=== PATIENT | male | born 1945 | race Caucasian/White ===

== ENCOUNTER 2018-05-06 07:30 | Outpatient (REF) | payer MEDICARE, OTHER, SELFPAY ==
[2018-05-06 13:03] LABS: ALT 20 U/L (12-78); AST 14 U/L (15-37); Albumin 3.9 g/dL (3.4-5.0); Alkaline Phosphatase 93 U/L (46-116); Anion Gap 7.8 mmol/L (3-11); BUN 16 mg/dL (7-18); Bilirubin, Total 0.4 mg/dL (0.2-1.0); CO2 27.2 mmol/L (21.0-32.0); CREATININE 1.02 mg/dL (0.70-1.30); Calcium 9.1 mg/dL (8.5-10.1); Chloride 103 mmol/L (98-107); Cholesterol 334 mg/dL (50-200); Glucose 96 mg/dL (70-100); HDL Cholesterol 52 mg/dL (40-60); LDL CHOLESTEROL 256 mg/dL (<100); Potassium 4.7 mmol/L (3.5-5.1); Sodium 138 mmol/L (136-145); Total Protein 7.5 g/dL (6.4-8.2); Triglyceride 116 mg/dL (30-150)
== END 2018-05-06 07:50 ==
LOC: NCHCN 07:30
PROVIDERS: PCP Family Medicine; Visit Provider Family Medicine
DX: E78.5 Hyperlipidemia, unspecified (principal)
CPT/HCPCS: 80053; 80061; 83721

== ENCOUNTER 2019-03-19 11:48 | Outpatient (REF) | payer MEDICARE, OTHER, SELFPAY ==
--- NOTE | 2019-03-19 11:30 | SKI_PTH ---
PATIENT: Jovany Hi LOC: [facility] U#:[id number] AGE/SX: 74/M ROOM: RE03/19/[address]: Jovany Lott : 1945 BED: DIS: 03/19/2019 SPEC #: [id number] RECD: 03/20/19 12:28 STATUS: LASHAY RECruzito #: [id number] LAMONT: 03/19/19 11:[address]: Jovany Lott DEPT: Surgical Specimen RECD BY: Marcy Day Tissues: 1 - SKIN BIOPSY(SHAVE/PUNCH) Procedures: SKIN LEVEL 4 SPECIAL STAIN 1 Comments: [id number]
== END 2019-03-19 12:08 ==
LOC: NCHCN 11:48
PROVIDERS: PCP Family Medicine; Visit Provider Family Medicine
DX: L30.8 Other specified dermatitis (principal)
CPT/HCPCS: 88305; 88312

== ENCOUNTER 2019-11-29 06:44 | Emergency (ER) | payer MEDICARE, OTHER, SELFPAY ==
[2019-11-29] VITALS (16 sets, daily range): BP systolic 71–135; BP diastolic 60–97; PULSE 42–108; RESP 12–24; TEMP 36.2; O2SAT 82–99
--- NOTE | 2019-11-29 06:50 | ED.GENADUL_ITS ---
Discharge Plan Disposition Patient Disposition: [facility] Condition: Critical Discharge Details Chief Complaint: Chest Pain Clinical Impression: ST elevation (STEMI) myocardial infarction Primary Care Provider: Jovany Lott ED Provider: Faustino Silverman Home Meds and New Rx's Prescriptions: No Action ferrous sulfate [Iron (ferrous sulfate)] 325 MG tablet 1,000 mg PO EVERY OTHER DAY RF: 0 ibuprofen [Ibuprofen Jr Strength] 100 MG tablet,chewable 200 mg PO Q6H PRN RF: 0 aspirin [Aspirin Low-Strength] 81 MG tablet,chewable 81 mg PO .QOD RF: 0 Medical Decision Making 74 yo male with no significant pmhx, is a chronic smoker, comes in with acute onset chest pain around 4am this morning and has no known cardiac disease. He took 2 full strength aspirin (648mg) and called EMS. EMS noted STEMI in inferior leads gave him fentanyl and brought him here. He was initially with EMS hypote nsive with BP of 90 and improved with small fluid bolus of 500cc and arrives bradycardic in the 40-50's complaining of substernal chest pressure. Denies fevers, dyspnea, cough. No jvd or pitting edema, no tearing back pain. EKG here confirms inferior stemi. Will consult with cardiology [place] [facility] [place] and start heparin. Patient negative on review for contraindications for lytics and after discussion of pros and cons agrees to lytics. spoke with Dr. Real at [facility] [place] cardiology and agrees with stemi and agrees with lytics and would like 300mg clopidogrel given and they accept in transfer, Dr. Garduno is accepting provider. [facility] is unable to fly, will try to arrange ground transport [facility] will take patient down. Patient still having n/v and no resolution of pain or st t wave changes. fentanyl and compazine ordered prior to transport, bp remain stable with HR in the 60's Differential Diagnosis Differential Diagnosis: stemi, acs, ptx Medical Records Medical records reviewed: Yes I reviewed the patient's medical records. Imaging Data Radiologic Study: Attestation: I personally reviewed and interpreted this imaging study as follows: Imaging: X-Ray My impression: no acute findings Lab Data Lab results reviewed: Yes I reviewed the patient's lab results. ECG Data Attestation: I personally reviewed and interpreted this ECG (s) as follows: Prior ECG tracings: not available for review Interpretation: sinus emerson, rate of 45, qtc 426, st elevation in II-III-avf 2nd ekg inus rhythm, rate of 64 pr 00, qtc 460, continued st t wave elevation in II-III-avf HPI General Mode of arrival: EMS . Date/Time Provider Initiated Documentation: 11/29/19 06:59 . Limitations to Documentation: no limitations . Information obtained by: patient . History of Present Illness 74 year old M presents to the emergency department with the chief complaint of chest pain, described as moderate, and it has been constant. No relieving factors improve symptom(s), No exacerbating factors reported . Patient did receive the following treatments prior to arrival, Aspirin Related Data Home Medications Medication Instructions Recorded Confirmed aspirin [Aspirin Low-Strength] 81 mg PO .QOD 06/13/14 11/29/19 ferrous sulfate [Iron] 1,000 mg PO EVERY OTHER DAY 07/09/17 11/29/19 ibuprofen [Ibuprofen Jr Strength] 200 mg PO Q6H PRN tab-cap 07/09/17 11/29/19 Allergies Allergy/AdvReac Type Severity Reaction Status Date / Time Penicillins Allergy Unverified 11/29/19 06:46 Tmnfdwg-Ddu-Hqa Reductase Allergy Unverified 11/29/19 06:46 Inhibitor General Stated Complaint: Chest Pain GRAY: 2 Review of Systems All systems reviewed & are unremarkable except as noted in HPI and below Constitutional Constitutional: Denies chills, Denies fever(s) and Denies weakness Cardiovascular Cardiovascular: Denies dyspnea Respiratory Respiratory: Denies cough and Denies dyspnea Gastrointestinal Gastrointestinal: Denies abdominal pain, Denies nausea and Denies vomiting Musculoskeletal Musculoskeletal: Denies joint swelling Neurologic Neurologic: Denies weakness Psychiatric Psychiatric: Denies depression [facility] Social History Smoking/Tobacco Use Status: Current every day Tobacco Type: cigarettes Alcohol Intake: never Drug use: Never Substance use type: does not use Exam Const General: other (in pain) Orientation: alert HENMT Head: normal to inspection Ears: external ears normal General nose exam: external nose normal Mouth: moist mucous membranes Eyes General: appearance normal, both eyes and all related structures Neck Neck: normal visual inspection Resp Effort & Inspection: normal respiratory effort and able to speak in complete sentences Cardio Rate: bradycardic Skin General skin exam: no rashes or lesions noted Neuro General: patient alert and patient oriented x3 Extrem General: normal to inspection Psych Mental Status: mental status grossly normal Course Vital Signs Vital signs: Vital Signs Temperature 36.2 C L 11/29/19 06:35 Pulse 48 L 11/29/19 06:35 Respiratory Rate 22 11/29/19 06:35 Blood Pressure 71/60 L 11/29/19 06:35 Pulse Oximetry 96 11/29/19 06:35 Temperature 36.2 C L 11/29/19 06:35 Temperature Source Skin 11/29/19 06:35 Pulse 48 L 11/29/19 06:35 Respiratory Rate 22 11/29/19 06:35 Respiratory Effort Non-Labored 11/29/19 06:35 Blood Pressure 71/60 L 11/29/19 06:35 Blood Pressure Position Supine 11/29/19 06:35 Pulse Oximetry 96 11/29/19 06:35 Pain Level 9 11/29/19 06:35 Critical Care Time Critical Care Time Critical Care Time: Yes Total Critical Care Time: 45 (minutes) Attestation: time spent with frequent reassessments, hd monitoring, lab and ekg review and starting heparin and lytics in patient with STEMI and potential to deteriorate at any time
[2019-11-29] MEDS: fentaNYL 100 MCG/2 ML VIAL 50 MCG IVP ×4 (07:00→07:35)
[2019-11-29] MEDS: Normal Saline Flush 10 ML SYR IVP ×2 (07:01→08:03)
[2019-11-29] MEDS: Tenecteplase 50 MG KIT 40 MG IVP (07:04)
[2019-11-29] MEDS: Clopidogrel 300 MG TAB PO (07:04)
[2019-11-29 07:05] LABS: Abs Immature Grans 0.03 k/cumm (0.0-0.09); Absolute Basophil Count 0.06 k/cumm (0.0-0.2); Absolute Eosinophil Count 0.29 k/cumm (0.0-0.7); Absolute Lymphocyte Count 2.53 k/cumm (1.2-3.4); Absolute Monocyte Count 0.79 k/cumm (0.11-0.7); Absolute Neutrophil Count 6.42 k/cumm (1.2-6.7); Basophils % 0.6; Eosinophils % 2.9; HCT 43.1 % (40.0-50.0); HGB 14.6 g/dL (13.5-17.5); Immature Grans % 0.3 %; Mean Corp. HGB Concentration 33.9 g/dL (32.0-36.0); Mean Corpuscular Hemoglobin 29.9 pg (27.0-33.0); Mean Corpuscular Volume 88.3 fL (80-95); Mean Platelet Volume 11.6 fL (8.0-11.0); Monocytes % 7.8; Neutrophils % 63.4; Platelet Count 194 x1000/uL (130-400); RBC 4.88 m/cumm (4.50-6.00); RBC Distribution Width 14.9 % (11.8-14.1); White Blood Cell Count 10.12 k/cumm (4.4-10.8)
--- NOTE | 2019-11-29 07:05 | DI.RAD_ITS ---
EXAM: XR PORTABLE CHEST AP CLINICAL HISTORY: chest pain TECHNIQUE: COMPARISON: CR CHEST 2 VIEWS PA,LAT from 10/12/2014 CR LEFT FOREARM from 01/22/2015 CT CHEST WITH CONTRAST from 10/08/2015 CT CHEST WITH CONTRAST from 10/08/2015 FINDINGS: Portable upright chest at 0700 hours. Cardiac size is within normal limits. Previously described ch anges of COPD fibrosis again noted, most prominent in the right lung base. Little interval change in appearance comparison prior study of 10/12/2014. No pleural effusion seen on this frontal. IMPRESSION: No evidence of acute process.
[2019-11-29] MEDS: Ondansetron 4 MG/2 ML VIAL IVP (07:10)
--- NOTE | 2019-11-29 07:10 | DI.VRAD_ITS ---
PROCEDURE INFORMATION: Exam: XR Chest, 1 View Exam date and time: 11/29/2019 7:00 AM Age: 74 years old Clinical indication: Other: Chest pain TECHNIQUE: Imaging protocol: XR of the chest Views: 1 view. COMPARISON: CR CHEST 2 VIEWS PA,LAT 10/12/2014 11:21 AM FINDINGS: Lungs: There is mild prominence of the interstitial markings at the right lung base, similar to the previous study and consistent with chronic change. There is no alveolar consolidation. Pleural space: Unremarkable. No pleural effusion. No pneumothorax. Heart/Mediastinum: Unremarkable. No cardiomegaly. Bones/joints: Unremarkable. IMPRESSION: Chronic interstitial changes at the right lung base. Dictated and Authenticated by: Brandin Mccollum MD. Ordering:LAVON Harmon MD
[2019-11-29 07:22] LABS: INR 1.1 (0.9-1.1); Prothrombin Time 11.2 sec (9.3-11.0)
[2019-11-29 07:25] LABS: ALT 16 U/L (16-63); AST 12 U/L (15-37); Albumin 3.5 g/dL (3.4-5.0); Alkaline Phosphatase 94 U/L (46-116); Anion Gap 11.8 mmol/L (3-11); BUN 21 mg/dL (7-18); Bilirubin, Total 0.4 mg/dL (0.2-1.0); CO2 22.2 mmol/L (21.0-32.0); CREATININE 1.43 mg/dL (0.70-1.30); Calcium 8.8 mg/dL (8.5-10.1); Chloride 100 mmol/L (98-107); Estimated GFR 48.48 (mL/min/1.73m2); Glucose 190 mg/dL (74-106); Lipase 187 U/L (73-393); Potassium 3.3 mmol/L (3.5-5.1); Sodium 134 mmol/L (136-145); Total Protein 7.6 g/dL (6.4-8.2)
[2019-11-29 07:30] LABS: Troponin I 0.08 ng/mL (<0.06)
[2019-11-29] MEDS: Prochlorperazine 10 MG/2 ML VIAL IVP (07:32)
== END 2019-11-29 07:40 | disposition short-term general hospital (02) ==
PROVIDERS: Emergency Provider Emergency Medicine; PCP Family Medicine
DX: I21.19 ST elevation (STEMI) myocardial infarction involving other coronary artery of inferior wall (principal); R00.1 Bradycardia, unspecified; R11.2 Nausea with vomiting, unspecified; I95.9 Hypotension, unspecified; F17.210 Nicotine dependence, cigarettes, uncomplicated
CPT/HCPCS: 36415; 80053; 83690; 93005; 96365; 96374; 96375; 96376; 99291; 71045; 84484; 85025; 85610; 85730; 93010; J0780; J2405; J3010; J3101

== ENCOUNTER 2019-12-12 12:44 | Outpatient (REF) | payer MEDICARE, OTHER, SELFPAY ==
[2019-12-12 13:31] LABS: Anion Gap 13.5 mmol/L (3-11); BUN 18 mg/dL (7-18); CO2 20.5 mmol/L (21.0-32.0); CREATININE 1.58 mg/dL (0.70-1.30); Calcium 9.2 mg/dL (8.5-10.1); Chloride 98 mmol/L (98-107); Estimated GFR 43.21 (mL/min/1.73m2); Glucose 96 mg/dL (74-106); Potassium 4.5 mmol/L (3.5-5.1); Sodium 132 mmol/L (136-145)
== END 2019-12-12 13:04 ==
LOC: LBN 12:44
PROVIDERS: PCP Family Medicine; Visit Provider Family Medicine
DX: I50.21 Acute systolic (congestive) heart failure (principal); I21.19 ST elevation (STEMI) myocardial infarction involving other coronary artery of inferior wall
CPT/HCPCS: 80048

== ENCOUNTER 2019-12-18 03:30 | Outpatient (CLI) | payer MEDICARE, OTHER, SELFPAY ==
--- NOTE | 2019-12-18 10:01 | DI.CT_ITS ---
EXAM: CT HEAD WO CLINICAL HISTORY: INTERCRANIAL HEMORRHAGE, FOLLOW UP I62.9. TECHNIQUE: Imaging Protocol: Axial computed tomography images with coronal and sagittal reformatted images were created and reviewed COMPARISON: CT CT HEAD WO CONTRAST (GENERIC) from 11/30/2019 MR MRI BRAIN WWO from 12/05/[address] HEAD WO CONTRAST (GENERIC) from 12/06/2019 FINDINGS: Ventricles and Extra axial spaces: Normal in size and morphology for the patient's age. Hemorrhage: Has been some interval decrease in size and attenuation of the previously noted hemorrhag e in the region of the left optic tract compared with previous exams. No significant edema. No new areas of hemorrhage are seen. Cerebral parenchyma: Mild atrophy. Midline shift: None. Brainstem/Cerebellum: Normal. Calvarium: Unremarkable. Visualized Paranasal sinuses/Mastoids: Mucous retention at the inferior right maxillary sinus. There is. Soft Tissues: Unremarkable. IMPRESSION: Decreased conspicuity of the previously noted area of hemorrhage in the region of the proximal left o ptic tract..No new abnormalities. RADIATION DOSE DELIVERED: 699.14mGy.cm Total DLP DATA REPOSITORY: All CT scans at this facility are submitted to the National Radiology Data Registry (NRDR) Dose Index Registry (DIR) with the [employer] (ACR). RADIATION OPTIMIZATION: All CT scans at this facility use at least one of these dose optimization te chniques: automated exposure control; mA and/or kV adjustment per patient size (includes targeted exa ms where dose is matched to clinical indication); or iterative reconstruction.
== END 2019-12-18 03:50 ==
PROVIDERS: PCP Family Medicine; Visit Provider Nurse Practitioner
DX: I62.9 Nontraumatic intracranial hemorrhage, unspecified (principal); G31.89 Other specified degenerative diseases of nervous system
CPT/HCPCS: 70450

== ENCOUNTER 2019-12-22 08:37 | Outpatient (CLI) | payer MEDICARE, OTHER, SELFPAY ==
[2019-12-23 19:48] LABS: COVID-19 RT-PCR UVMMC Result Negative (Negative)
== END 2019-12-22 08:57 ==
PROVIDERS: PCP Family Medicine; Visit Provider Family Medicine
DX: Z03.818 Encounter for observation for suspected exposure to other biological agents ruled out (principal)
CPT/HCPCS: U0003

== ENCOUNTER 2019-12-23 10:54 | Outpatient (RCR) | payer MEDICARE, SELFPAY | END 2019-12-30 23:59 | disposition home or self-care (01) | LOC: CR 10:54 | PROVIDERS: PCP Family Medicine; Visit Provider Family Medicine | DX: I25.2 Old myocardial infarction (principal) ==

== ENCOUNTER 2019-12-29 01:46 | Outpatient (CLI) | payer MEDICARE, OTHER, SELFPAY ==
--- NOTE | 2019-12-29 08:28 | DI.CT_ITS ---
EXAM: CT HEAD WO CLINICAL HISTORY: INTRACRANIAL HEMORRHAGE, I62.9, F/U LT OPTIC TRACT HEMORRHAGE. TECHNIQUE: Imaging Protocol: Axial computed tomography images with coronal and sagittal reformatted images were created and reviewed COMPARISON: CT CT HEAD WO CONTRAST (GENERIC) from 11/30/[address] HEAD WO CONTRAST (GENERIC) from 11/30/[address] HEAD WO CONTRAST (GENERIC) from 11/30/[address] ANGIOGRAM TAKOTNA OF BRAY from 11/30/[address] HEAD WO CONTRAST (GENERIC) from 12/01/2019 MR MRI BRAIN WWO from 12/05/[address] HEAD WO CONTRAST (GENERIC) from 12/06/[address] HEAD WO from 12/18/2019 FINDINGS: Ventricles and Extra axial spaces: Normal in size and morphology for the patient's age. Hemorrhage: The area of hemorrhage in the region of the left optic tract is again noted. It is uncha nged in size compared to 12/18/2019. No new areas of hemorrhage are identified. The areas of decreas ed attenuation in the adjacent soft tissues are unchanged. Cerebral parenchyma: Areas of decreased attenuation are seen in the white matter consistent with smal l vessel ischemic disease. Mild age-appropriate cerebral atrophy is seen. Midline shift: None. Brainstem/Cerebellum: Normal. Calvarium: Normal. Visualized Paranasal sinuses/Mastoids: There is mucosal thickening seen in the right maxillary sinus and a few ethmoid air cells. The mastoid air cells are well pneumatized. Soft Tissues: Unremarkable. IMPRESSION: Stable area of hemorrhage seen in the region of the left optic tract. RADIATION DOSE DELIVERED: Total DLP DATA REPOSITORY: All CT scans at this facility are submitted to the National Radiology Data Registry (NRDR) Dose Index Registry (DIR) with the [employer] (ACR). RADIATION OPTIMIZATION: All CT scans at this facility use at least one of these dose optimization te chniques: automated exposure control; mA and/or kV adjustment per patient size (includes targeted exa ms where dose is matched to clinical indication); or iterative reconstruction.
== END 2019-12-29 02:06 ==
PROVIDERS: PCP Family Medicine; Visit Provider Nurse Practitioner
DX: I62.9 Nontraumatic intracranial hemorrhage, unspecified (principal); I67.82 Cerebral ischemia; J32.0 Chronic maxillary sinusitis
CPT/HCPCS: 70450

== ENCOUNTER 2019-12-30 14:33 | Outpatient (RCR) | payer MEDICARE, SELFPAY | END 2019-12-30 23:59 | disposition home or self-care (01) | LOC: CR 14:33 | PROVIDERS: PCP Family Medicine; Visit Provider Family Medicine | DX: R69 Illness, unspecified (principal) ==

== ENCOUNTER 2020-01-15 16:47 | Outpatient (REF) | payer MEDICARE, SELFPAY ==
[2020-01-15 18:57] LABS: Anion Gap 9.9 mmol/L (3-11); BUN 24 mg/dL (7-18); CO2 26.1 mmol/L (21.0-32.0); CREATININE 1.49 mg/dL (0.70-1.30); Calcium 9.2 mg/dL (8.5-10.1); Chloride 100 mmol/L (98-107); Estimated GFR 46.23 (mL/min/1.73m2); Glucose 98 mg/dL (74-106); Potassium 4.1 mmol/L (3.5-5.1); Sodium 136 mmol/L (136-145)
== END 2020-01-15 17:07 ==
LOC: NCHCN 16:47
PROVIDERS: PCP Family Medicine; Visit Provider Family Medicine
DX: N28.9 Disorder of kidney and ureter, unspecified (principal)
CPT/HCPCS: 80048

== ENCOUNTER 2020-01-30 10:00 | Outpatient (RCR) | payer MEDICARE, OTHER, SELFPAY | END 2020-01-30 23:59 | disposition home or self-care (01) | LOC: CR 10:00 | PROVIDERS: PCP Family Medicine; Visit Provider Family Medicine | DX: I25.2 Old myocardial infarction (principal); Z51.89 Encounter for other specified aftercare | CPT/HCPCS: S9472 ==

== ENCOUNTER → 2020-02-03 11:16 | Outpatient (BNVA) | payer MEDICARE, OTHER, SELFPAY | PROVIDERS: PCP Family Medicine; Referring Provider Family Medicine; Visit Provider Internal Medicine Cardiovascular Disease | DX: I21.3 ST elevation (STEMI) myocardial infarction of unspecified site (principal); E78.5 Hyperlipidemia, unspecified; I25.5 Ischemic cardiomyopathy; I48.0 Paroxysmal atrial fibrillation; Z86.73 Personal history of transient ischemic attack (TIA), and cerebral infarction without residual deficits | CPT/HCPCS: 99204; 99215 ==

== ENCOUNTER 2020-02-07 07:19 | Outpatient (CLI) | payer MEDICARE, OTHER, SELFPAY ==
[2020-02-08 17:55] LABS: COVID-19 RT-PCR Result NEGATIVE (Negative)
== END 2020-02-07 07:39 ==
PROVIDERS: PCP Family Medicine; Visit Provider Family Medicine
DX: Z11.59 Encounter for screening for other viral diseases (principal); Z01.818 Encounter for other preprocedural examination
CPT/HCPCS: U0003

== ENCOUNTER 2020-02-11 04:37 | Outpatient (CLI) | payer MEDICARE, OTHER, SELFPAY ==
[2020-02-11] MEDS: Albuterol HFA 18 GM 200 PUFF INH IH (09:02)
[2020-02-11] MEDS: Inhaler, Assist Device 1 EACH MC (09:02)
--- NOTE | 2020-02-13 13:06 | W.PFT ---
Date of service: 02/11/20 Time of Service: 08:02 Pulmonary Function Test Result Interpretation Spirometry: Shows mild obstructive airways disease with significant bronchodilator response Lung Volumes: No evidence of restriction, there is mild to moderate hyperinflation and air trapping Diffusion Capacity: Very severely reduced even when corrected to alveolar volume Airway Pressure: Normal Impression Mild obstructive airways disease with significant bronchodilator response and mild to moderate hyperinflation and air trapping. This is associated with extremely severe diffusion defect. The diffusion defect is disproportionate to the amount of airway obstruction therefore underlying interstitial lung disease, especially with the patient's history of amiodarone exposure, is recommended. Clinical Correlation therefore is recommended.
== END 2020-02-11 04:57 ==
PROVIDERS: PCP Family Medicine; Visit Provider Family Medicine
DX: J44.9 Chronic obstructive pulmonary disease, unspecified (principal); R06.09 Other forms of dyspnea; Z87.891 Personal history of nicotine dependence; Z79.899 Other long term (current) drug therapy
CPT/HCPCS: 94060; 94726; 94729

== ENCOUNTER 2020-03-01 09:00 | Outpatient (RCR) | payer MEDICARE, OTHER, SELFPAY | END 2020-03-01 23:59 | disposition home or self-care (01) | LOC: CR 09:00 | PROVIDERS: PCP Family Medicine; Visit Provider Family Medicine | DX: I25.2 Old myocardial infarction (principal); Z51.89 Encounter for other specified aftercare | CPT/HCPCS: S9472 ==

== ENCOUNTER 2020-03-10 02:44 | Outpatient (CLI) | payer MEDICARE, OTHER, SELFPAY ==
[2020-03-10 10:18] LABS: Hemoglobin A1C 6.1 % (<5.7)
[2020-03-10 10:57] LABS: ALT 26 U/L (16-63); AST 15 U/L (15-37); Alkaline Phosphatase 95 U/L (46-116); Anion Gap 5.8 mmol/L (3-11); BUN 21 mg/dL (7-18); Bilirubin, Total 0.6 mg/dL (0.2-1.0); CO2 28.2 mmol/L (21.0-32.0); Calcium 9.1 mg/dL (8.5-10.1); Calculated LDL 274 mg/dL (<100); Chloride 99 mmol/L (98-107); Cholesterol 350 mg/dL (<200); Estimated GFR 45.75 (mL/min/1.73m2); Glucose 103 mg/dL (74-106); HDL Cholesterol 49 mg/dL (40-60); Potassium 4.4 mmol/L (3.5-5.1); Sodium 133 mmol/L (136-145); TSH 4.56 uIU/mL (0.36-3.74); Total Protein 7.9 g/dL (6.4-8.2); Triglyceride 135 mg/dL (<150)
[2020-03-11 16:18] LABS: Lipoprotein (a) 24 mg/dL (<=30)
== END 2020-03-10 03:04 ==
PROVIDERS: PCP Family Medicine; Visit Provider Internal Medicine
DX: E78.00 Pure hypercholesterolemia, unspecified (principal); R73.9 Hyperglycemia, unspecified
CPT/HCPCS: 36415; 80053; 80061; 83695; 83036; 84443

== ENCOUNTER 2020-03-26 13:51 | Outpatient (RCR) | payer MEDICARE, OTHER, SELFPAY | END 2020-03-31 23:59 | disposition home or self-care (01) | LOC: CR 13:51 | PROVIDERS: PCP Family Medicine; Visit Provider Family Medicine | DX: I25.2 Old myocardial infarction (principal); Z51.89 Encounter for other specified aftercare | CPT/HCPCS: S9472 ==

== ENCOUNTER 2020-04-06 00:31 | Outpatient (CLI) | payer MEDICARE, OTHER, SELFPAY ==
--- NOTE | 2020-04-06 07:30 | DI.US_ITS ---
APPROVED REPORT EXAM: Comprehensive 2D, Doppler, and color-flow Echocardiogram Patient Location: Out-Patient Blue Line Hanger: Shanita Gamez RDCS (AE) Indications: CAD, STEMI Other Information Study Quality: Adequate Conclusion Normal left ventricular wall thickness and chamber size. Estimated ejection fraction is 45 to 50%. Inferior posterior and anteroapical segments are hypocontractile Normal right ventricular size and systolic function Normal right and left atrial size The aortic valve is trileaflet without regurgitation or stenosis Normal mitral valve, with mild regurgitation Structurally normal tricuspid valve. Trace to mild tricuspid regurgitation. Normal right ventricula r systolic pressure 17 mmHg Structurally normal pulmonic valve, mild pulmonic regurgitation Mildly dilated ascending aorta Wall motion Left Ventricle The left ventricle is normal size. Left ventricular systolic function is mildly decreased. There is n ormal left ventricular wall thickness. Inferior, posterior, anteroapical hypokinesis There is no vent ricular septal defect visualized. LVEF is 45-50%. Right Ventricle The right ventricle is normal size. The right ventricular systolic function is normal. The RVSP is 17 .4mmHg. Atria The left atrium size is normal. The right atrium size is normal. The interatrial septum is intact wit h no evidence for an atrial septal defect. Aortic Valve The aortic valve is normal in structure. Aortic valve is trileaflet. There is no aortic valvular sten osis. No aortic regurgitation is present. Mitral Valve The mitral valve is normal in structure. No evidence of mitral valve stenosis. Mild mitral regurgitat ion. Tricuspid Valve The tricuspid valve is normal in structure. There is no tricuspid valve stenosis. Trace to mild tricu spid regurgitation. Pulmonic Valve The pulmonary valve is normal in structure. There is no pulmonic valvular stenosis. Mild pulmonic reg urgitation. Great Vessels The aortic root is normal in size. The ascending aorta is mildly dilated. Aortic arch is not well vis ualized. IVC is normal in size and collapses >50% with inspiration. Pericardium There is no pericardial effusion. 2D Dimensions IVSD d PLAX 0.81 cm M: 0.6-1.2 LV Vol A2C d MOD 111.1 mL LVPW d PLAX 0.81 cm M: 0.6 - 1.2 LV Vol A4C d MOD 98.8 mL LVID d PLAX 5.45 cm M: 4.2 - 5.8 LA vol/ BSA A2C s A-L 28.0 mL/m2 LVDs 4.55 cm M: 2.5 - 4.0 LA vol/ BSA A4C s A-L 17.5 mL/m2 Ao Root d 3.11 cm M: 3.1 - 3.7 LA Vol/ BSA Biplane s A-L 22.6 mL/m2 RA Area A4C 11.60 cm2 LA Area A4C s MOD 12.84 cm2 RA Vol/ BSA A4C s A-L 16.2 mL/m2 LA Area A2C s MOD 16.58 cm2 Ao Asc Diam d 3.55 cm M: 2.6 - 3.4 LV EF A4C MOD 44.9 % LV EF Teichholz 32.9 % LV EF A2C MOD 40.1 % LVEF (Orourke's) 41.50 % M: 52 - 72 LV EF Biplane MOD 41.5 % LV Volume 86.79 mL M: 62 - 150 SV 45.78 mL LV Volume Index 49.87 mL/m2 M: 34 - 74 SV Index 26.26 mL/m2 LV Vol Biplane MOD 110.3 mL FS 15.75 % LV Diastology MV E' medial 0.052 (>0.07 m/s) E/A Ratio 0.8 LV E/e MED 9.50 (<14) MV E Vmax 0.50 (0.4-1.3 m/s) MV E' lateral 0.077 (>0.1 m/s) MV A Vmax 0.60 (0.4-1.3 m/s) LV E/e LAT 6.45 (<14) MV E/A Ratio 0.76 MV E/E' medial 9.51 MV E/E' lateral 6.47 Aortic Valve LVOT Area 3.56 cm2 AoV Area Vmax 2.37 cm2 LVOT Vmax 0.83 m/s AoV Area/ BSA (Vmax) 1.36 cm2/m2 LVOT Mean Bart. 0.53 m/s KELVIN Mean Bart. 2.41 cm2 LVOT Peak Grad 2.7 mmHg KELVIN Mean Bart. Index 1.38 cm2/m2 LVOT Mean Grad 1.3 mmHg LVOT VTI 0.202 m LVOT Diam s 2.10 cm AoV Vmax 1.25 m/s Velocity Ratio 0.66 AoV Mean Bart. 0.78 m/s AoV Peak Grad 6.2 mmHg LVOT SV 72.09 mL AoV Mean Grad 2.9 mmHg AoV VTI 0.251 m AoV Area VTI 2.87 cm2 AoV Area/ BSA (VTI) 1.65 cm/m2 Mitral Valve MV DT 323 (160-240 msec) MV PHT 94 msec MV Area PHT 2.35 cm2 Pulmonary Valve PV Vmax 1.07 (0.5-1.5 m/s) RVOT Peak Gr. 1.23 mmHg PV Peak Grad 4.6 mmHg RVOT Mean Gr. 0.60 mmHg PV Mean Grad 2.0 mmHg RVOT VTI 0.121 m PV VTI 0.229 m RVOT Vmax 0.56 m/s Tricuspid Valve TR Peak Grad 14.3 mmHg TR Vmax 1.89 m/s RA Pressure 3.00 mmHg RVSP (TR) 17.4 mmHg
== END 2020-04-06 00:51 ==
PROVIDERS: PCP Family Medicine; Visit Provider Internal Medicine Cardiovascular Disease
DX: I21.3 ST elevation (STEMI) myocardial infarction of unspecified site (principal); I08.1 Rheumatic disorders of both mitral and tricuspid valves
CPT/HCPCS: 93306

== ENCOUNTER → 2020-05-06 11:13 | Outpatient (BNVA) | payer MEDICARE, OTHER, SELFPAY | PROVIDERS: PCP Family Medicine; Referring Provider Family Medicine; Visit Provider Internal Medicine Cardiovascular Disease | DX: I25.10 Atherosclerotic heart disease of native coronary artery without angina pectoris (principal); E78.5 Hyperlipidemia, unspecified; I21.3 ST elevation (STEMI) myocardial infarction of unspecified site; Z79.01 Long term (current) use of anticoagulants | CPT/HCPCS: 99214 ==

== ENCOUNTER 2020-09-07 13:15 | Outpatient (CLI) | payer MEDICARE, OTHER, SELFPAY ==
--- NOTE | 2020-09-07 | DI.RAD_ITS ---
EXAM: XR ABD FLAT UPRIGHT PA CHEST CLINICAL HISTORY: SOB, R06.02 TECHNIQUE: 2D digital imaging was performed. COMPARISON: No exams were available for comparison FINDINGS: MEDIASTINUM: Normal. HEART: Normal. PULMONARY VASCULATURE: Normal. LUNGS: Linear atelectasis or scarring in the right lung base. Lungs are hyperinflated with flattened diaphragms consistent with underlying COPD. PLEURAL SPACE: No pleural effusion or pneumothorax. BONE:Within normal limits for the patient's age. OTHER FINDINGS:Normal. IMPRESSION: No acute pulmonary findings. DATA REPOSITORY: RADIATION DOSE DELIVERED:
== END 2020-09-07 13:35 ==
PROVIDERS: PCP Family Medicine; Visit Provider Family Medicine
DX: R06.02 Shortness of breath (principal)
CPT/HCPCS: 71046

== ENCOUNTER 2020-09-07 14:36 | Outpatient (REF) | payer MEDICARE, OTHER, SELFPAY ==
[2020-09-07 15:24] LABS: Abs Immature Grans 0.06 10^3/uL (0.0-0.06); Absolute Basophil Count 0.06 10^3/uL (0.0-0.2); Absolute Eosinophil Count 0.09 10^3/uL (0.0-0.7); Absolute Lymphocyte Count 2.14 10^3/uL (1.2-3.4); Absolute Monocyte Count 1.21 10^3/uL (0.1-0.8); Absolute Neutrophil Count 6.78 10^3/uL (1.2-6.7); Basophils % 0.6; Eosinophils % 0.9; HCT 48.4 % (40.0-50.0); HGB 15.7 g/dL (13.5-17.5); Immature Grans % 0.6; Lymphocytes % 20.7; MCH 29.8 pg (27.0-33.0); MCHC 32.4 % (32.0-36.0); MCV 91.8 fL (80-95); MPV 13.3 fL (8.0-11.0); Monocytes % 11.7; Neutrophils % 65.5; Nucleated RBC 0 %; RBC 5.27 10^6/uL (4.36-5.78); RDW 13.5 % (11.8-14.1); RDW-SD 46.3 fL; WBC 10.34 10^3/uL (4.4-10.8)
[2020-09-07 15:30] LABS: ALT 22 U/L (16-63); AST 16 U/L (15-37); Albumin 4.2 g/dL (3.4-5.0); Alkaline Phosphatase 101 U/L (46-116); Anion Gap 10.7 mmol/L (3-11); BUN 20 mg/dL (7-18); Bilirubin, Total 0.8 mg/dL (0.2-1.0); CO2 24.3 mmol/L (21.0-32.0); CREATININE 1.5 mg/dL (0.70-1.30); Calcium 9.4 mg/dL (8.5-10.1); Chloride 99 mmol/L (98-107); Estimated GFR 45.75 (mL/min/1.73m2); Glucose 124 mg/dL (74-106); NT-proBNP 1055 pg/mL (<300); Sodium 134 mmol/L (136-145); Total Protein 8.8 g/dL (6.4-8.2)
[2020-09-07 16:03] LABS: Diff Comment Diff Reviewed; Platelet Count 169 10^3/uL (130-400); RBC Morphology Normal
[2020-09-08 14:33] LABS: COVID-19 RT-PCR UVMMC Result Negative (Negative)
== END 2020-09-07 14:37 | disposition home or self-care (01) ==
LOC: NCHCN 14:36
PROVIDERS: PCP Family Medicine; Visit Provider Family Medicine
DX: R06.02 Shortness of breath (principal); B34.9 Viral infection, unspecified; Z20.822 Contact with and (suspected) exposure to COVID-19; J06.9 Acute upper respiratory infection, unspecified
CPT/HCPCS: 80053; U0003; 83880; 85025

== ENCOUNTER → 2020-11-08 11:10 | Outpatient (BNVA) | payer MEDICARE, OTHER, SELFPAY | PROVIDERS: PCP Family Medicine; Referring Provider Family Medicine; Visit Provider Internal Medicine Cardiovascular Disease | DX: I25.2 Old myocardial infarction; I25.10 Atherosclerotic heart disease of native coronary artery without angina pectoris; R06.02 Shortness of breath; I25.5 Ischemic cardiomyopathy; I50.21 Acute systolic (congestive) heart failure; I48.91 Unspecified atrial fibrillation | CPT/HCPCS: 99214 ==

== ENCOUNTER 2020-12-13 05:47 | Emergency (ER) | payer MEDICARE, OTHER, SELFPAY ==
[2020-12-13] VITALS (7 sets, daily range): BP systolic 126–151; BP diastolic 69–91; PULSE 57–78; RESP 14–24; TEMP 36.6; O2SAT 92
[2020-12-13 06:13] LABS: Abs Immature Grans 0.02 10^3/uL (0.0-0.06); Absolute Basophil Count 0.09 10^3/uL (0.0-0.2); Absolute Lymphocyte Count 2.24 10^3/uL (1.2-3.4); Absolute Monocyte Count 0.76 10^3/uL (0.1-0.8); Absolute Neutrophil Count 3.37 10^3/uL (1.2-6.7); Basophils % 1.3; Eosinophils % 4.4; HCT 47.3 % (40.0-50.0); HGB 15.1 g/dL (13.5-17.5); Immature Grans % 0.3; MCH 29.4 pg (27.0-33.0); MCHC 31.9 % (32.0-36.0); MCV 92.2 fL (80-95); MPV 12.2 fL (8.0-11.0); Monocytes % 11.2; Neutrophils % 49.8; Nucleated RBC 0 %; Platelet Count 150 10^3/uL (130-400); RBC 5.13 10^6/uL (4.36-5.78); RDW 14.3 % (11.8-14.1); RDW-SD 48.9 fL; WBC 6.78 10^3/uL (4.4-10.8)
--- NOTE | 2020-12-13 06:20 | ED.GENADUL_ITS ---
Discharge Plan Disposition Patient Disposition: HOME Condition: Stable Discharge Details Clinical Impression: Hemorrhage secondary to anti-coagulation Primary Care Provider: Jovany Lott ED Provider: Faustino Silverman Home Meds and New Rx's Prescriptions: Continued furosemide [Lasix] 20 mg tablet 20 mg PO Q OTHER DAY Qty: 90 RF: 6 Eliquis 5 mg tablet 5 mg PO BID Qty: 180 RF: 3 lisinopril 5 mg tablet 5 mg PO DAILY Qty: 90 RF: 3 metoprolol succinate 25 mg tablet extended release 24 hr 25 mg PO DAILY Qty: 90 RF: 3 aspirin 81 mg Tablet 81 mg PO DAILY RF: 0 Spiriva with HandiHaler 18 mcg Capsule, W/Inhalation Device 1 cap INHALATION DAILY RF: 0 cholecalciferol (vitamin D3) [Vitamin D3] 50 mcg (2,000 unit) Tablet 2,000 unit PO DAILY RF: 0 Discharge Instructions Additional Instructions: if you have recurrent bleeding hold pressure by biting down on gauze as we discussed if you are unable to stop the bleeding after 15 minutes of holding pressure return to the emergency department Medical Decision Making 75 yo male on eliquis for paroxysmal afib comes in after he woke with blood in his mouth and denies known trauma. HE states he went to bed feeling well and had no bleeding yesterday and no recent dental procedures. He has not noticed any blood from his nose and when I had him blow his nose and he had no blood from the nose or on the tissue. He has blood on his tongue without lesions. His left upper posterior gum where he has had a tooth extracted dose have oozing of blood from it and seems to be the source of the bleeding. I performed a rectal exam and he had brown guiac negative stool so doubt gi bleed, done with nurse cyber security administrator [place] Marcelino. Will apply txa soaked gauze and reassess. I removed gauze and he no longer has any bleeding, will d/c and educated on how to hold pressure if it bleeds again, return precautions also given Differential Diagnosis Differential Diagnosis: oral lesion, mouth trauma, epistaxis Medical Records Medical records reviewed: Yes I reviewed the patient's medical records. Lab Data Lab results reviewed: Yes I reviewed the patient's lab results. HPI General Mode of arrival: ambulatory . Date/Time Provider Initiated Documentation: 12/13/20 05:48 . Limitations to Documentation: no limitations . Information obtained by: patient . History of Present Illness 75 year old M presents to the emergency department with the chief complaint of mouth bleeding, described as moderate, Patient started experiencing this hour(s) (1) and it has been constant. No relieving factors improve symptom(s), No exacerbating factors reported . Patient notes no other symptoms.. Patient did receive the following treatments prior to arrival, none Related Data Home Medications Medication Instructions Recorded Confirmed lisinopril 5 mg tablet 5 mg PO DAILY #90 tab 05/17/20 12/13/20 metoprolol succinate 25 mg 25 mg PO DAILY #90 tab 05/17/20 12/13/20 tablet,extended release 24 hr apixaban 5 mg tablet 5 mg PO BID #180 tab 11/08/20 12/13/20 furosemide 20 mg tablet 20 mg PO Q OTHER DAY #90 tab 11/08/20 12/13/20 Spiriva with HandiHaler 1 cap INHALATION DAILY 12/06/20 12/13/20 aspirin 81 mg PO DAILY 12/06/20 12/13/20 cholecalciferol (vitamin D3) 2,000 unit PO DAILY 12/06/20 12/13/20 [Vitamin D3] Previous Rx's Medication Instructions Recorded lisinopril 5 mg tablet 5 mg PO DAILY #90 tab 05/17/20 metoprolol succinate 25 mg 25 mg PO DAILY #90 tab 05/17/20 tablet,extended release 24 hr apixaban 5 mg tablet 5 mg PO BID #180 tab 11/08/20 furosemide 20 mg tablet 20 mg PO Q OTHER DAY #90 tab 11/08/20 Allergies Allergy/AdvReac Type Severity Reaction Status Date / Time Penicillins Allergy Unverified 12/13/20 06:10 Ewnkyez-Lel-Wti Reductase Allergy Unverified 12/13/20 06:10 Inhibitor General Stated Complaint: GI Bleed GRAY: 2 Review of Systems All systems reviewed & are unremarkable except as noted in HPI and below Constitutional Constitutional: Denies chills, Denies fever(s) and Denies weakness Cardiovascular Cardiovascular: Denies chest pain and Denies dyspnea Respiratory Respiratory: Denies cough and Denies dyspnea Gastrointestinal Gastrointestinal: Denies abdominal pain, Denies nausea and Denies vomiting Musculoskeletal Musculoskeletal: Denies joint swelling Neurologic Neurologic: Denies weakness COUNT INCLUDES THE [facility] Medical History (Updated 12/13/20 @ 06:38 by Faustino Silverman MD) Heart attack Myocardial abscess Social History Smoking/Tobacco Use Status: Current every day Tobacco Type: cigarettes Smoking risk assessment performed?: Yes Alcohol Intake: never Drug use: Never Substance use type: does not use Do you feel safe at home: Yes Do you feel safe in your relationship?: Yes Exam Const General: no acute distress Orientation: alert HENMT Head: normal to inspection Ears: external ears normal General nose exam: external nose normal Mouth: moist mucous membranes Eyes General: appearance normal, both eyes and all related structures Neck Neck: normal visual inspection Resp Effort & Inspection: normal respiratory effort and able to speak in complete sentences Cardio Rate: regular rate Skin General skin exam: no rashes or lesions noted Neuro General: patient alert and patient oriented x3 Extrem General: normal to inspection Psych Mental Status: mental status grossly normal Course Vital Signs Vital signs: Vital Signs Temperature 36.6 C 12/13/20 05:57 Pulse 78 12/13/20 05:57 Respiratory Rate 18 12/13/20 05:57 Blood Pressure 151/91 H 12/13/20 05:57 Pulse Oximetry 92 12/13/20 05:57 Temperature 36.6 C 12/13/20 05:57 Pulse 78 12/13/20 05:57 Respiratory Rate 18 12/13/20 05:57 Respiratory Effort Non-Labored 12/13/20 06:12 Blood Pressure 151/91 H 12/13/20 05:57 Pulse Oximetry 92 12/13/20 05:57 Pain Level 0 12/13/20 05:57 Lab/Test Results Lab/Test Results: Laboratory Tests Range/Units 12/13/20 06:00 WBC (4.4-10.8) 10^3/uL 6.78 RBC (4.36-5.78) 10^6/uL 5.13 Hgb (13.5-17.5) g/dL 15.1 Hct (40.0-50.0) % 47.3 MCV (80-95) fL 92.2 MCH (27.0-33.0) pg 29.4 MCHC (32.0-36.0) % 31.9 L RDW (11.8-14.1) % 14.3 H Plt Count (130-400) 10^3/uL 150 MPV (8.0-11.0) fL 12.2 H Immature Gran % 0.3 Neutrophils % 49.8 Lymphocytes % 33.0 Monocytes % 11.2 Eosinophils % 4.4 Basophils % 1.3 Nucleated RBC % % 0 Absolute Neutrophils (1.2-6.7) 10^3/uL 3.37 Absolute Lymphocytes (1.2-3.4) 10^3/uL 2.24 Absolute Monocytes (0.1-0.8) 10^3/uL 0.76 Absolute Eosinophils (0.0-0.7) 10^3/uL 0.30 Absolute Basophils (0.0-0.2) 10^3/uL 0.09
[2020-12-13 06:22] LABS: Magnesium 2.3 mg/dL (1.8-2.4)
[2020-12-13 06:26] LABS: ALT 21 U/L (16-63); AST 17 U/L (15-37); Albumin 3.9 g/dL (3.4-5.0); Alkaline Phosphatase 92 U/L (46-116); Anion Gap 9.4 mmol/L (3-11); BUN 22 mg/dL (7-18); Bilirubin, Total 0.4 mg/dL (0.2-1.0); CO2 27.6 mmol/L (21.0-32.0); CREATININE 1.6 mg/dL (0.70-1.30); Calcium 9.3 mg/dL (8.5-10.1); Chloride 102 mmol/L (98-107); Estimated GFR 42.46 (mL/min/1.73m2); Glucose 112 mg/dL (74-106); Lipase 162 U/L (73-393); Potassium 3.9 mmol/L (3.5-5.1); Sodium 139 mmol/L (136-145); Total Protein 8.4 g/dL (6.4-8.2)
[2020-12-13] MEDS: Tranexamic Acid 1,000 MG/10 ML VIAL 1000 MG (06:33)
[2020-12-13 06:40] LABS: INR 1.1 (0.9-1.1); Prothrombin Time 10.9 sec (9.3-11.0)
== END 2020-12-13 07:16 | disposition home or self-care (01) ==
PROVIDERS: Emergency Provider Emergency Medicine; PCP Family Medicine
DX: K13.79 Other lesions of oral mucosa (principal); T45.515A Adverse effect of anticoagulants, initial encounter
CPT/HCPCS: 36415; 80053; 83690; 86850; 86900; 86901; 99284; 83735; 85025; 85610; 85730; 99283

== ENCOUNTER 2020-12-28 11:00 | Outpatient (RCR) | payer SELFPAY ==
[2020-11-30 12:22] VITALS: BP 142/76; PULSE 64
[2020-12-02 11:05] VITALS: BP 129/81; PULSE 56
[2020-12-07 11:09] VITALS: BP 110/66; PULSE 76
[2020-12-09 10:53] VITALS: BP 126/73; PULSE 60
[2020-12-14 10:57] VITALS: BP 100/64; PULSE 57
[2020-12-16 10:57] VITALS: BP 106/68; PULSE 67
[2020-12-21 11:01] VITALS: BP 98/63; PULSE 51
[2020-12-23 10:56] VITALS: BP 120/63; PULSE 52
[2020-12-28 11:00] VITALS: BP 109/70; PULSE 64
== END 2020-12-29 23:59 | disposition home or self-care (01) ==
LOC: CR 11:00
PROVIDERS: PCP Family Medicine; Visit Provider Family Medicine
DX: Z51.89 Encounter for other specified aftercare (principal)

== ENCOUNTER 2021-01-27 11:00 | Outpatient (RCR) | payer SELFPAY ==
[2020-12-30 00:27] VITALS: BP 109/70; PULSE 64
[2020-12-30 11:02] VITALS: BP 106/70; PULSE 56
[2021-01-04 10:55] VITALS: BP 130/75; PULSE 56; O2SAT 90
[2021-01-06 11:00] VITALS: BP 123/72; PULSE 51
[2021-01-11 10:53] VITALS: BP 120/72; PULSE 56
[2021-01-13 11:08] VITALS: BP 108/55; PULSE 58
[2021-01-18 10:57] VITALS: BP 121/71; PULSE 53
[2021-01-20 11:00] VITALS: BP 122/78; PULSE 55
[2021-01-27 11:00] VITALS: BP 119/72; PULSE 57
== END 2021-01-29 23:59 | disposition home or self-care (01) ==
LOC: CR 11:00
PROVIDERS: PCP Family Medicine; Visit Provider Family Medicine
DX: Z51.89 Encounter for other specified aftercare (principal)

== ENCOUNTER → 2021-02-08 10:37 | Outpatient (BNVA) | payer MEDICARE, OTHER, SELFPAY | PROVIDERS: PCP Family Medicine; Referring Provider Family Medicine; Visit Provider Internal Medicine Cardiovascular Disease | DX: I21.3 ST elevation (STEMI) myocardial infarction of unspecified site (principal); E78.5 Hyperlipidemia, unspecified; I42.8 Other cardiomyopathies; Z86.79 Personal history of other diseases of the circulatory system; Z79.899 Other long term (current) drug therapy | CPT/HCPCS: 99214; 99213 ==

== ENCOUNTER 2021-02-15 02:24 | Outpatient (CLI) | payer MEDICARE, OTHER, SELFPAY ==
--- NOTE | 2021-02-15 | DI.RAD_ITS ---
Exam(s) XR CERVICAL SPINE COMP 4-5V EXAM: XR CERVICAL SPINE COMP 4-5V CLINICAL HISTORY: LT NECK PAIN,M54.2 TECHNIQUE: COMPARISON: No exams were available for comparison FINDINGS: Nine views were obtained. There is disc space narrowing at C5-6 and C6-7. There are prominent hyper trophic endplate degenerative changes at C5-6 and C6-7 as well. There are moderate hypertrophic face t joint changes throughout the cervical region. There is mild narrowing of neural foramina on the left throughout the cervical region. On the right there is narrowing of neural foramina at C5-6 and C6-7. No gross erosive or destructive lesion seen. No evidence of fracture. Minimal anterolisthesis of C4 on C5 noted. IMPRESSION: Degenerative changes of the cervical spine as described above. RADIATION DOSE DELIVERED: Total DLP
== END 2021-02-15 02:44 ==
PROVIDERS: PCP Family Medicine; Visit Provider Family Medicine
DX: M47.812 Spondylosis without myelopathy or radiculopathy, cervical region (principal); M48.02 Spinal stenosis, cervical region
CPT/HCPCS: 72050

== ENCOUNTER 2021-03-01 11:00 | Outpatient (RCR) | payer SELFPAY ==
[2021-01-30 00:25] VITALS: BP 119/72; PULSE 57
[2021-02-01 10:57] VITALS: BP 128/75; PULSE 55
[2021-02-03 13:04] VITALS: BP 130/69
[2021-02-08 11:03] VITALS: BP 137/70; PULSE 68
[2021-02-10 10:55] VITALS: BP 116/66; PULSE 54
[2021-02-15 10:58] VITALS: BP 119/70; PULSE 50
[2021-02-17 10:58] VITALS: BP 117/72; PULSE 56
[2021-02-24 10:56] VITALS: BP 123/73; PULSE 62
[2021-03-01 13:56] VITALS: BP 119/65; PULSE 65
== END 2021-03-01 23:59 | disposition home or self-care (01) ==
LOC: CR 11:00
PROVIDERS: PCP Family Medicine; Visit Provider Family Medicine
DX: Z51.89 Encounter for other specified aftercare (principal)

== ENCOUNTER 2021-03-31 11:00 | Outpatient (RCR) | payer SELFPAY ==
[2021-03-02 00:11] VITALS: BP 119/65; PULSE 65
[2021-03-03 11:35] VITALS: BP 110/66; PULSE 52
[2021-03-08 13:22] VITALS: BP 124/84; PULSE 59
[2021-03-10 11:05] VITALS: BP 124/69; PULSE 51
[2021-03-15 11:18] VITALS: BP 113/65; PULSE 58
[2021-03-17 11:16] VITALS: BP 108/69; PULSE 63
[2021-03-22 10:54] VITALS: BP 106/62; PULSE 56; O2SAT 92
[2021-03-24 11:04] VITALS: BP 118/78; PULSE 68; O2SAT 91
[2021-03-29 11:28] VITALS: BP 106/61; PULSE 79
[2021-03-31 11:01] VITALS: BP 118/72; PULSE 58
[2021-04-05 10:53] VITALS: BP 136/76; PULSE 61
== END 2021-03-31 23:59 | disposition home or self-care (01) ==
LOC: CR 11:00
PROVIDERS: PCP Family Medicine; Visit Provider Family Medicine
DX: Z51.89 Encounter for other specified aftercare (principal)

== ENCOUNTER 2021-04-26 11:00 | Outpatient (RCR) | payer SELFPAY ==
[2021-04-01 00:07] VITALS: BP 118/72; PULSE 58
[2021-04-07 10:53] VITALS: BP 126/76; PULSE 52
[2021-04-12 11:27] VITALS: BP 118/64; PULSE 51
[2021-04-14 12:50] VITALS: BP 120/65; PULSE 53
[2021-04-19 10:53] VITALS: BP 111/65; PULSE 54; O2SAT 93
[2021-04-21 10:55] VITALS: BP 128/77; PULSE 53; O2SAT 93
[2021-04-26 10:55] VITALS: BP 117/66; PULSE 61
== END 2021-05-01 23:59 | disposition home or self-care (01) ==
LOC: CR 11:00
PROVIDERS: PCP Family Medicine; Visit Provider Family Medicine
DX: Z51.89 Encounter for other specified aftercare (principal); R69 Illness, unspecified

== ENCOUNTER 2021-05-31 11:00 | Outpatient (RCR) | payer SELFPAY ==
[2021-05-02 00:19] VITALS: BP 117/66; PULSE 61
[2021-05-03 11:44] VITALS: BP 136/66; PULSE 54; O2SAT 90
[2021-05-05 10:55] VITALS: BP 115/67; PULSE 62
[2021-05-10 13:06] VITALS: BP 121/74; PULSE 56
[2021-05-19 10:54] VITALS: BP 115/63; PULSE 51; O2SAT 93
[2021-05-24 13:04] VITALS: BP 115/72; PULSE 67
[2021-05-31 11:02] VITALS: BP 113/64; PULSE 54
== END 2021-05-31 23:59 | disposition home or self-care (01) ==
LOC: CR 11:00
PROVIDERS: PCP Family Medicine; Visit Provider Family Medicine
DX: Z51.89 Encounter for other specified aftercare (principal); R69 Illness, unspecified

== ENCOUNTER 2021-06-01 14:38 | Outpatient (REF) | payer MEDICARE, OTHER, SELFPAY ==
[2021-06-01 22:27] LABS: Abs Immature Grans 0.03 10^3/uL (0.0-0.06); Absolute Basophil Count 0.09 10^3/uL (0.0-0.2); Absolute Eosinophil Count 0.29 10^3/uL (0.0-0.7); Absolute Lymphocyte Count 1.71 10^3/uL (1.2-3.4); Absolute Monocyte Count 0.74 10^3/uL (0.1-0.8); Absolute Neutrophil Count 4.03 10^3/uL (1.2-6.7); Basophils % 1.3; Eosinophils % 4.2; HCT 44.4 % (40.0-50.0); HGB 14.3 g/dL (13.5-17.5); Immature Grans % 0.4; Lymphocytes % 24.8; MCH 29.8 pg (27.0-33.0); MCHC 32.2 % (32.0-36.0); MCV 92.5 fL (80-95); Monocytes % 10.7; Neutrophils % 58.6; Nucleated RBC 0 %; Platelet Count 144 10^3/uL (130-400); RDW 14.2 % (11.8-14.1); WBC 6.89 10^3/uL (4.4-10.8)
[2021-06-01 22:54] LABS: ALT 21 U/L (16-63); AST 17 U/L (15-37); Alkaline Phosphatase 77 U/L (46-116); Anion Gap 9.8 mmol/L (3-11); BUN 23 mg/dL (7-18); Bilirubin, Total 0.4 mg/dL (0.2-1.0); CO2 24.2 mmol/L (21.0-32.0); CREATININE 1.2 mg/dL (0.70-1.30); Calcium 9.4 mg/dL (8.5-10.1); Chloride 105 mmol/L (98-107); Estimated GFR 59.02 (mL/min/1.73m2); Glucose 104 mg/dL (74-106); Potassium 4.7 mmol/L (3.5-5.1); Sodium 139 mmol/L (136-145); Total Protein 7.6 g/dL (6.4-8.2)
== END 2021-06-01 14:39 | disposition home or self-care (01) ==
LOC: LBN 14:38
PROVIDERS: PCP Family Medicine; Visit Provider Family Medicine
DX: K62.5 Hemorrhage of anus and rectum (principal)
CPT/HCPCS: 80053; 85025

== ENCOUNTER → 2021-06-09 13:48 | Outpatient (BNVA) | payer MEDICARE, OTHER, SELFPAY | PROVIDERS: PCP Family Medicine; Referring Provider Family Medicine; Visit Provider Surgery | DX: K62.5 Hemorrhage of anus and rectum (principal); J44.9 Chronic obstructive pulmonary disease, unspecified | CPT/HCPCS: 99214 ==

== ENCOUNTER 2021-06-30 11:00 | Outpatient (RCR) | payer SELFPAY ==
[2021-06-01 00:20] VITALS: BP 113/64; PULSE 54
[2021-06-02 11:10] VITALS: BP 111/70; PULSE 58
[2021-06-09 10:55] VITALS: BP 125/70; PULSE 55; O2SAT 92
[2021-06-14 11:38] VITALS: BP 124/65; PULSE 62
[2021-06-16 11:50] VITALS: BP 125/73; PULSE 55
[2021-06-21 10:55] VITALS: BP 120/64; PULSE 58; O2SAT 92
[2021-06-23 10:53] VITALS: BP 129/74; PULSE 57; O2SAT 91
[2021-06-28 11:04] VITALS: BP 116/72; PULSE 67
[2021-06-30 11:50] VITALS: BP 108/64; PULSE 74
== END 2021-07-01 23:59 | disposition home or self-care (01) ==
LOC: CR 11:00
PROVIDERS: PCP Family Medicine; Visit Provider Family Medicine
DX: Z51.89 Encounter for other specified aftercare (principal)

== ENCOUNTER 2021-07-04 15:15 | Outpatient (RCR) | payer SELFPAY ==
[2021-07-02 00:08] VITALS: BP 108/64; PULSE 74
[2021-07-05 10:55] VITALS: BP 123/69; PULSE 61
== END 2021-08-01 23:59 | disposition home or self-care (01) ==
LOC: CR 15:15
PROVIDERS: PCP Family Medicine; Visit Provider Family Medicine
DX: R69 Illness, unspecified (principal)

== ENCOUNTER 2021-07-28 02:27 | Outpatient (CLI) | payer MEDICARE, OTHER, SELFPAY ==
--- NOTE | 2021-07-28 07:31 | DI.US_ITS ---
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 Left ventricular systolic function is moderately decreased. There is normal left ventricular wall thickness. Regional wall motion abnormalities are no pepper. The diastolic function is abnormal. LVEF is 43%. Right Ventricle : Right ventricle is grossly normal in size. Right ventricular systolic function is g rossly normal. The RVSP is 24.3 mmHg. Mitral Valve : Mild mitral annular calcification. Mild mitral regurgitation. No evidence of mitral va lve stenosis. Great Vessels : The aortic root is normal in size. The ascending aorta is normal in size. Aortic arch is not well visualized. IVC is normal in size and collapses >50% with inspiration. Compared to study from 04/06/20 there is no significant change. Wall motion Left Ventricle The left ventricle is normal size. Left ventricular systolic function is moderately decreased. There is normal left ventricular wall thickness. Regional wall motion abnormalities are noted. The diastoli c function is abnormal. There is no ventricular septal defect visualized. LVEF is 43%. Right Ventricle Right ventricle is grossly normal in size. Right ventricular systolic function is grossly normal. The RVSP is 24.3 mmHg. Atria The left atrium size is normal. The right atrium size is normal. The interatrial septum is intact wit h no evidence for an atrial septal defect. Aortic Valve The aortic valve is normal in structure. Aortic valve is trileaflet. There is no aortic valvular sten osis. No aortic regurgitation is present. Mitral Valve Mild mitral annular calcification. No evidence of mitral valve stenosis. Mild mitral regurgitation. Tricuspid Valve The tricuspid valve is normal in structure. There is no tricuspid valve stenosis. Trace tricuspid reg urgitation. Pulmonic Valve The pulmonary valve is normal in structure. There is no pulmonic valvular stenosis. Mild pulmonic reg urgitation. Great Vessels The aortic root is normal in size. The ascending aorta is normal in size. Aortic arch is not well vis ualized. IVC is normal in size and collapses >50% with inspiration. Pericardium There is no pericardial effusion. 2D Dimensions IVSD d PLAX 0.64 cm M: 0.6-1.2 LV Vol A2C d MOD 93.8 mL LVPW d PLAX 0.67 cm M: 0.6 - 1.2 LV Vol A4C d MOD 94.3 mL LVID d PLAX 5.33 cm M: 4.2 - 5.8 LA vol/ BSA A2C s A-L 22.1 mL/m2 LVDs 4.20 cm M: 2.5 - 4.0 LA vol/ BSA A4C s A-L 17.2 mL/m2 Ao Root d 2.98 cm M: 3.1 - 3.7 LA Vol/ BSA Biplane s A-L 20.2 mL/m2 RA Area A4C 14.04 cm2 LA Area A4C s MOD 12.27 cm2 RA Vol/ BSA A4C s A-L 21.6 mL/m2 LA Area A2C s MOD 14.40 cm2 Ao Asc Diam d 3.47 cm M: 2.6 - 3.4 LV EF A4C MOD 43.5 % LV EF Teichholz 42.4 % LV EF A2C MOD 43.6 % LVEF (Orourke's) 46.13 % M: 52 - 72 LV EF Biplane MOD 46.1 % LV Volume 77.29 mL M: 62 - 150 SV 46.00 mL LV Volume Index 42.70 mL/m2 M: 34 - 74 SV Index 25.31 mL/m2 LV Vol Biplane MOD 99.7 mL FS 21.05 % M-Mode TAPSE 1.75 cm (M/F) >1.7 LV Diastology MV E' medial 0.078 (>0.07 m/s) E/A Ratio 0.8 LV E/e MED 6.95 (<14) MV E Vmax 0.54 (0.4-1.3 m/s) MV E' lateral 0.092 (>0.1 m/s) MV A Vmax 0.70 (0.4-1.3 m/s) LV E/e LAT 5.90 (<14) MV E/A Ratio 0.76 MV E/E' medial 6.96 MV E/E' lateral 5.92 Aortic Valve LVOT Area 3.64 cm2 AoV Area Vmax 3.07 cm2 LVOT Vmax 1.01 m/s AoV Area/ BSA (Vmax) 1.69 cm2/m2 LVOT Mean Bart. 0.63 m/s KELVIN Mean Batr. 2.73 cm2 LVOT Peak Grad 4.1 mmHg KELVIN Mean Bart. Index 1.50 cm2/m2 LVOT Mean Grad 1.9 mmHg LVOT VTI 0.257 m LVOT Diam s 2.15 cm AoV Vmax 1.20 m/s Velocity Ratio 0.84 AoV Mean Bart. 0.84 m/s AoV Peak Grad 5.7 mmHg LVOT SV 93.51 mL AoV Mean Grad 3.1 mmHg AoV VTI 0.286 m AoV Area VTI 3.27 cm2 AoV Area/ BSA (VTI) 1.80 cm/m2 Mitral Valve MV DT 429 (160-240 msec) MR Vmax 4.47 m/s MV PHT 124 msec MR VTI 1.886 m MV Area PHT 1.77 cm2 MR Peak Grad 80.0 mmHg MV VTI 0.208 m MR Mean Grad 55.7 mmHg MV Area VTI 4.50 (4.0-6.0 cm2) Pulmonary Valve PV Vmax 1.00 (0.5-1.5 m/s) RVOT Peak Gr. 1.26 mmHg PV Peak Grad 4.0 mmHg RVOT Mean Gr. 0.65 mmHg PV Mean Grad 2.1 mmHg RVOT VTI 0.138 m PV VTI 0.230 m RVOT Vmax 0.56 m/s Tricuspid Valve TR Peak Grad 21.2 mmHg TR Vmax 2.31 m/s RA Pressure 3.00 mmHg RVSP (TR) 24.3 mmHg
== END 2021-07-28 02:47 ==
PROVIDERS: PCP Family Medicine; Visit Provider Surgery
DX: I21.3 ST elevation (STEMI) myocardial infarction of unspecified site (principal); E78.5 Hyperlipidemia, unspecified; T45.8X1A Poisoning by other primarily systemic and hematological agents, accidental (unintentional), initial encounter; D68.32 Hemorrhagic disorder due to extrinsic circulating anticoagulants; I26.99 Other pulmonary embolism without acute cor pulmonale; J44.9 Chronic obstructive pulmonary disease, unspecified
CPT/HCPCS: 93306

== ENCOUNTER → 2021-08-08 10:50 | Outpatient (BNVA) | payer MEDICARE, OTHER, SELFPAY | PROVIDERS: PCP Family Medicine; Visit Provider Internal Medicine Cardiovascular Disease | DX: I25.10 Atherosclerotic heart disease of native coronary artery without angina pectoris (principal); I73.9 Peripheral vascular disease, unspecified; R19.5 Other fecal abnormalities; Z95.818 Presence of other cardiac implants and grafts; Z01.810 Encounter for preprocedural cardiovascular examination; E78.5 Hyperlipidemia, unspecified | CPT/HCPCS: 99214 ==

== ENCOUNTER 2021-08-09 15:59 | Outpatient (CLI) | payer MEDICARE, OTHER, SELFPAY ==
--- NOTE | 2021-08-09 | DI.RAD_ITS ---
Exam(s) XR RIBS LT W PA LAT CHEST EXAM: XR RIBS LT W PA LAT CHEST CLINICAL HISTORY: CHEST WALL PAIN, R07.89, 76 Y/O SMOKER, 1 MO LT POSTERIOR INFERIOR CHEST TECHNIQUE: 2D digital imaging was performed. COMPARISON: CR XR CHEST 2V PA LATERAL from 09/07/2020 FINDINGS: MEDIASTINUM: Normal. HEART: Normal. PULMONARY VASCULATURE: Normal. LUNGS: There is scarring in the lung bases. There is underlying COPD. No focal consolidating infilt rates are present. PLEURAL SPACE: No pleural effusion or pneumothorax. BONE:Within normal limits for the patient's age. LEFT RIBS: Normal. OTHER FINDINGS:Normal. IMPRESSION: 1. No acute pulmonary findings. 2. Unremarkable left ribs. DATA REPOSITORY: RADIATION DOSE DELIVERED:
== END 2021-08-09 16:19 ==
PROVIDERS: PCP Family Medicine; Visit Provider Family Medicine
DX: R07.89 Other chest pain (principal); Z87.891 Personal history of nicotine dependence; J44.9 Chronic obstructive pulmonary disease, unspecified
CPT/HCPCS: 71046; 71100

== ENCOUNTER → 2021-08-15 09:48 | Outpatient (BNVA) | payer MEDICARE, OTHER, SELFPAY | PROVIDERS: PCP Family Medicine; Referring Provider Family Medicine; Visit Provider Surgery | DX: R19.5 Other fecal abnormalities (principal) | CPT/HCPCS: 99213 ==

== ENCOUNTER 2021-08-24 01:21 | Outpatient (CLI) | payer MEDICARE, OTHER, SELFPAY ==
[2021-08-24 11:45] LABS: Source Nasal/Nares
[2021-08-24 13:54] LABS: COVID-19 PCR Negative (Negative)
== END 2021-08-24 01:22 | disposition home or self-care (01) ==
LOC: LBO 01:21
PROVIDERS: PCP Family Medicine; Visit Provider Surgery
DX: Z20.822 Contact with and (suspected) exposure to COVID-19 (principal)
CPT/HCPCS: 87635; U0005

== ENCOUNTER 2021-08-26 06:02 | Day surgery (SDC) | payer MEDICARE, OTHER, SELFPAY ==
--- NOTE | 2021-08-25 22:12 | W.COLOREPORT ---
Colonoscopy Report Date of procedure: 08/26/21 Pre-op diagnosis general: +Cologuard Post-op diagnosis procedure note: other (severe diverticuli dx/rectal polyps) Procedure: flex-sig Surgeon: Najma Valladares Anesthesia Type: General:No Airway Estimated blood loss (mL): 2 Complications: None Prep: Miralax/Dulcolax Procedure Description: After informed consent was obtained the patient was taken to the procedure room and placed in a left decubitous position. Monitors were applied and a time out was done. The patients name, date of , procedure, allergies to medications and metal in their body was reviewed. The patient was then sedated. Once sedated and comfortable a rectal exam was done. External exam was normal. Internal exam revealed a normal sphincter tone and no palpable masses. The prostate nl The scope was then introduced and retrofelexed. nl internal hemorrhoids were identified. The prep was BBPS- 3 in rectal sigmoid. The scope was passed up to the rectosigmoid found. He does have a 0.75 cm pedunculated polyp in the rectum. This is removed with a hot snare. The specimen is retrieved and no bleeding is noted. He does have severe diverticular disease that extends all the way up to the sigmoid flexure. Once we get to the sigmoid flexure I am unable to visualize the lumen or passed the endoscope any further. The procedure is abandoned for patient safety. Scope was removed and the patient was woken up and taken back to Same day surgery in stable condition. The patient tolerated the procedure well and there were no immediate complications. Follow up: The patient patient will need to go for a barium enema in 2 to 3 weeks for completeness. He had this procedure for a positive Cologuard. There was a polyp in the rectum that we did identify and remove.
--- NOTE | 2021-08-25 22:13 | PDOC.DSDIS_ITS ---
Discharge Plan Disposition Patient Disposition: HOME Condition: Good Discharge Details Reason For Visit: colon scope Attending Provider: Najma Valladares Primary Care Provider: Jovany Lott Home Meds and New Rx's Prescriptions: No Action polyethylene glycol 3350 17 gram/dose powder 238 g PO ONCE Qty: 238 0RF Rx Instructions: take per colonoscopy instructions bisacodyl [Dulcolax (bisacodyl)] 5 mg tablet,delayed release (DR/EC) 5 mg PO ONCE Qty: 4 0RF Rx Instructions: take per colonoscopy instructions furosemide [Lasix] 20 mg tablet 20 mg PO Q OTHER DAY Qty: 90 6RF Eliquis 5 mg tablet 5 mg PO BID Qty: 180 3RF lisinopril 5 mg tablet 5 mg PO DAILY Qty: 90 3RF nitroglycerin 0.4 mg tablet, sublingual 0.4 mg sublingual Q5M PRN0RF Rx Instructions: do not exceed 3 doses per episode metoprolol succinate 25 mg tablet extended release 24 hr 25 mg PO HS 0RF aspirin 81 mg Tablet 81 mg PO DAILY 0RF cholecalciferol (vitamin D3) [Vitamin D3] 50 mcg (2,000 unit) Tablet 2,000 unit PO DAILY 0RF Rx Instructions: 1 every other day Discharge Instructions Additional Instructions: DSU Colonoscopy Post- Op Instructions Instructions for Everyone who is given Anesthesia: For your safety, please do the following for the next twenty-four (24) hours: *Do Not operate a motor vehicle (car, truck, motorcycle, etc.) *Do Not drink alcoholic beverages or use any recreational drugs for the first 24 hours or while taking pain medications. The medications in your body may have a reaction that can be dangerous. *Do Not make any important decisions or sign any important papers. Findings: severe diverticular Dx rectal polyps incomplete scope. Will need BE. Follow up: My office will call and schedule the barium enema in 2 weeks time. 1. No lifting over 20 pounds or strenuous activity for the first 24 hours after your procedure. After 24 hours there are no restrictions on your activity but you may feel fatigued for a few days. 2. After you arrive home you may have a light meal and return to your normal diet as you can tolerate it without feeling sick to your stomach. 3. You may have a bloated, gaseous feeling in your belly (abdomen) after a colonoscopy. Passing gas and belching will help. Walking or lying down on your left side with your knees flexed may relieve the discomfort. 4. Resume aspirin and Eliquis on Sunday08/29/21. Call the office at [phone] (Office) or [phone] (Hospital) right away if you notice any of the following: a.Vomiting of blood or ?coffee ground stools?. b.Rectal bleeding 1Tbsp, blood clots or continuous bleeding. c.Severe belly (abdominal) pain. d.A hard distended belly (abdomen) and an inability to pass gas. 4. Please don?t expect to have a normal BM (bowel movement) for 2-3 days after your procedure. 5. If there are questions regarding the findings of your procedure, please contact your doctor 6. If you are unable to contact your doctor with a problem, contact the hospital at [phone]. 7. Continue all your regular medications unless directed otherwise. I understand the above instructions and have no questions. Signature of Patient or Adult Escort Name of Responsible Adult Escort Signature of Nurse Date/Time Activity:: see above Diet:: see above Discharge Orders Discharge Orders: Discharge Order (Routine); Ordered 08/25/21 Ordered By: Najma Valladares
[2021-08-26 06:26] VITALS: BP 142/87; PULSE 81; RESP 16; TEMP 36.6; O2SAT 96
[2021-08-26] MEDS: Lactated Ringers 1,000 ML 80 ML IV (06:48)
--- NOTE | 2021-08-26 07:08 | W.ANESPRE ---
General Info Date of Service Date Performed: 08/26/21 Height: 5 ft 8.5 in Weight: 67.5 kg Body Mass Index (BMI): 22.3 Surgical Procedure: Operation Date: 08/26/21 07:35 Proposed Procedure Side Surgeon xi Valladares DO Pre-Op Diagnosis Post-Op Diagnosis colon scope Meds Allergies and Home Medications Allergies Allergy/AdvReac Type Severity Reaction Status Date / Time amitriptyline Allergy Intermediate stiff neck Verified 08/26/21 06:36 and congestion ezetimibe [From Zetia] Allergy Intermediate made me Verified 08/26/21 06:36 feel like crap. 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 Allergy Mild Uncoded 08/26/21 06:36 Home Medication Medication Instructions Recorded lisinopril 5 mg tablet 5 mg PO DAILY #90 tab 05/17/20 apixaban 5 mg tablet (Eliquis) 5 mg PO BID #180 tab 11/08/20 furosemide 20 mg tablet (Lasix) 20 mg PO Q OTHER DAY #90 tab 11/08/20 aspirin 81 mg tablet 81 mg PO DAILY 12/06/20 cholecalciferol (vitamin D3) 50 2,000 unit PO DAILY 12/06/20 mcg (2,000 unit) tablet (Vitamin D3) nitroglycerin 0.4 mg sublingual 0.4 mg SUBLINGUAL Q5M PRN 06/09/21 tablet bisacodyl 5 mg tablet,delayed 5 mg PO ONCE #4 tab 08/15/21 release (Dulcolax (bisacodyl)) polyethylene glycol 3350 17 238 g PO ONCE #238 g 08/15/21 gram/dose oral powder metoprolol succinate 25 mg 25 mg PO HS 08/24/21 tablet,extended release 24 hr Current Visit Medications: Current Medications Generic Name Dose Route Start Last Admin Trade Name Freq PRN Reason Stop Dose Admin Hyoscyamine Sulfate 0.125 mg 08/25/21 22:11 Hyoscyamine 0.125 Mg Sl/Oral/Chew SL DIRECTED PRN Ringer's Solution 1,000 mls @ 80 mls/hr 08/26/21 06:00 08/26/21 06:48 IV 09/24/21 23:59 80 mls/hr INFUSION BECK Administration IV Miscellaneous Supplies 1 each 08/26/21 06:00 Iv Access IV 09/24/21 23:59 DIRECTED BECK Ondansetron HCl 4 mg 08/25/21 22:11 Ondansetron 4 Mg/2 Ml Vial IVP Q4H PRN PRN Nausea / Vomiting Sodium Chloride 0 ml 08/26/21 06:00 Normal Saline Flush 10 Ml Syr IV 09/24/21 23:59 PRN PRN Sodium Chloride 0 ml 08/26/21 06:00 Normal Saline 10 Ml Vial IJ 09/24/21 23:59 DIRECTED PRN Sterile Water 0 ml 08/26/21 06:00 Water,Injection,Sterile 10 Ml Vial IJ 09/24/21 23:59 DIRECTED PRN PFSH Active Problems Active Problems: Problem Status Onset Code STEMI (ST elevation myocardial infarction) I21.3 Hyperlipidemia E78.5 Hemorrhage secondary to anti-coagulation T45.7X1A, D68.9 Pulmonary embolism I26.99 COPD (chronic obstructive pulmonary disease) J44.9 Atrial fib/flutter, transient Rectal hemorrhage K62.5 Prediabetes R73.03 Occult blood positive stool R19.5 Chronic kidney disease N18.9 Anxiety F41.9 Coronary artery disease I25.10 CVA (cerebral vascular accident) I63.9 Hemorrhoids, external K64.4 Peripheral artery disease I73.9 Decreased diffusion capacity of lung R94.2 Positive colorectal cancer screening using Cologuard test R19.5 Back pain M54.9 Medical History Medical History (Updated 08/26/21 @ 06:34 by Tamy Connors, NIURKA) Achilles tendonitis Familial hyperlipidemia Former smoker Heart attack 11/29/2019 mini stroke w/ heart attack per pt.HE History of amputation of finger RIF Myocardial abscess Right inguinal hernia Surgical History Surgical History Status post cardiac catheterization 11/18 w/x3 MACARIO in RCA Tobacco Smoking/Tobacco Use Status: Former Tobacco Use Alcohol Alcohol Intake: former Substance Use Substance use: Never Substance use type: does not use Vital Signs and Lab Results Vital Signs Most Recent Vital Signs in EMR: Most Recent Vital Signs Temp Pulse Resp BP Pulse Ox 36.6 C 81 16 142/87 H 96 08/26/21 06:26 08/26/21 06:26 08/26/21 06:26 08/26/21 06:26 08/26/21 06:26 Lab Results Blood Type / Crossmatch: No Data to Display Complete Blood Count: No Data to Display Complete Metabolic Panel: No Data to Display Liver Function Panel: No Data to Display Coagulation Panel: No Data to Display Cardiac Panel: No Data to Display Arterial Blood Gas: No Data to Display Venous Blood Gas: No Data to Display Pancreas Panel: No Data to Display Thyroid Panel: No Data to Display Infectious Disease: Coronavirus (COVID-19)(PCR) Negative (Negative) 08/24/21 10:00 08/24/21 Coronavirus 2019 Source Nasal/Nares 08/24/21 10:00 08/24/21 Blood Cultures: No Data to Display Toxicology Panel: No Data to Display Anesthesia Assessment and Plan Anesthesia History Personal History: No History of Anesthesia Complications Family History: No Family History of Anesthesia Complications Exercise Tolerance Exercise Tolerance: Metabolic Equivalents>4 Pertinent Negatives Pertinent Negatives: No Symptoms of GERD, No Major Cardiovascular Symptoms or Complaints ( Assessment & Plan (1) Coronary artery disease: (2) Atrial fib/flutter, transient: (3) Peripheral artery disease: (4) Occult blood positive stool: Patient describes stable exercise tolerance without symptoms concerning for angina. I would consider him stable from the cardiac standpoint for ), No Major Pulmonary Symptoms or Complaints (REDMOND from 65 years of smoking ) and No History of CVA/TIA (Mini stroke 2020 with my heart attack ) Cardiac & Pulmonary Exam Cardiac Exam: Normal S1/S2 Heart Sounds Pulmonary Exam: Clear Bilateral Breath Sounds Implantable Cardiac Device Does patient have a Pacemaker or an ICD?: No Airway Exam Known Difficult Airway: No Mallampati Class: 1 Mouth Opening: Normal (> 3cm) Thyromental Distance: Greater than 3 cm Neck Range of Motion: Full ROM Neck Circumference: Normal Teeth Condition: Generalized Poor Dentition (Multiple missing, loose, and decayed teeth) ASA Classification ASA Score: ASA 3 Emergency Case?: No NPO Status NPO Status: NPO Clears >2 hours, Solids >8 hours Anesthesia Plan Resuscitation Status: Full Code Anesthesia Technique: General Anesthesia Airway Planned: Natural Airway Monitors Used: Standard Monitors
[2021-08-26 07:11] VITALS: BMI 22.3
[2021-08-26 08:02] VITALS: BP 126/64; PULSE 84; RESP 18; TEMP 36.3; O2SAT 98
--- NOTE | 2021-08-26 08:05 | W.ANESPOSTOP ---
Postoperative Evaluation Date, Time and Location Date Performed: 08/26/21 Time Performed: 08:06 Patient Location: Day Surgery Unit Vital Signs Most Recent Imported Vital Signs: Most Recent Vital Signs Temp Pulse Resp BP Pulse Ox 36.6 C 81 16 142/87 H 96 08/26/21 06:26 08/26/21 06:26 08/26/21 06:26 08/26/21 06:26 08/26/21 06:26 Most Recent Manually Entered Vital Signs: Adult Blood Pressure: 124/64 Heart Rate: 70 Respirations: 12 Oxygen Saturation (%): 98 Temperature (C): 36.3 C Pain Score (0-10 Scale): 0 Pain Score Most Recent Pain Score: Most Recent Pain Score Pain Level 0 08/26/21 06:26 Assessment Mental Status: Awake (Alert & Oriented to Patient Baseline) Airway and Respiratory Function: Patent airway with normal (patient baseline) respiratory exam Cardiovascular Function: Hemodynamically Stable Hydration Status: Adequately Hydrated Nausea & Vomiting: No Nausea or Vomiting Pain: Pt. Denies Any Pain Peripheral Nerve Block: Patient did not receive a nerve block
[2021-08-26 08:07] VITALS: BP 124/64; PULSE 70; RESP 12; TEMPC 36.3; O2SAT 98
[2021-08-26] MEDS: Hyoscyamine 0.125 MG SL/ORAL/CHEW SL (08:29)
[2021-08-26 08:35] VITALS: BP 104/64; PULSE 85; RESP 18; TEMP 36.5; O2SAT 96
--- NOTE | 2021-08-26 08:45 | BOWEL_PTH ---
PATIENT: Jovany Hi LOC: [facility] U#:[id number] AGE/SX: 76/M ROOM: RE08/26/[address]: Najma Valladares : 1945 BED: DIS: 08/26/2021 SPEC #: [id number] RECD: 08/26/21 11:24 STATUS: LASHAY REQ #: [id number] LAMONT: 08/26/21 08:[address]: Najma Valladares DEPT: Surgical Specimen RECD BY: Marcy Day ENTERED: 08/26/21 11:24 SP TYPE: Bowel OTHR DR: Jovany Lott Tissues: 1 - BIOPSY BOWEL Procedures: GROSS AND MICRO LEVEL 4 IMMUNOPEROXIDASE STAIN Comments: [id number]
== END 2021-08-26 08:53 | disposition home or self-care (01) ==
LOC: SUR 06:03
PROVIDERS: PCP Family Medicine; Visit Provider Surgery
PROC: 0DJD8ZZ Inspection of Lower Intestinal Tract, Via Natural or Artificial Opening Endoscopic (ICD-10-PCS; CPT 45330; 2021-08-26 07:30)
DX: R19.5 Other fecal abnormalities (principal); K57.30 Diverticulosis of large intestine without perforation or abscess without bleeding; K62.1 Rectal polyp
CPT/HCPCS: 45338; 88305; 88361; J2001; J3490

== ENCOUNTER 2021-09-07 01:21 | Outpatient (CLI) | payer MEDICARE, OTHER, SELFPAY ==
--- NOTE | 2021-09-07 06:45 | DI.RAD_ITS ---
Exam(s) RF ABDOMEN EXAM: RF ABDOMEN CLINICAL HISTORY: Incomplete coloNOSCOPY, + cologuard, rectal bleeding,q43.8 TECHNIQUE: COMPARISON: No exams were available for comparison FINDINGS: Two views were obtained. There is moderate quantity of fecal material in the colon. The examination was obtained prior to a planned barium enema. Barium enema has been rescheduled for tomorrow with f urther preparation recommended to the patient. IMPRESSION: RADIATION DOSE DELIVERED: Total DLP
== END 2021-09-07 01:41 ==
PROVIDERS: PCP Family Medicine; Visit Provider Surgery
DX: Q43.8 Other specified congenital malformations of intestine (principal)
CPT/HCPCS: 74018

== ENCOUNTER 2021-09-08 01:27 | Outpatient (CLI) | payer MEDICARE, OTHER, SELFPAY ==
--- NOTE | 2021-09-08 09:17 | DI.RAD_ITS ---
Exam(s) RF BARIUM ENEMA EXAM: RF BARIUM ENEMA CLINICAL HISTORY: TORTUOUS COLON,INCOMPLETE COLONOSCOPY,RECTAL BLEEDING,+COLOGUARD COMPARISON: CR RF ABDOMEN from 09/07/2021 TECHNIQUE: 2D and realtime digital imaging was performed. CONTRAST MATERIAL: Barium Water soluble contrast was administered. FINDINGS: Barium was introduced in the rectum and flowed to the cecum and into the appendix. There was no refl ux into the terminal ileum. There is moderate sigmoid diverticulosis. No focal sigmoid lesion identified. Remainder of the colo n is fairly well visualized and shows normal mucosal appearance. Ileocecal valve region is unremarka ble. Post evacuation films are unremarkable. IMPRESSION: Mild diverticulosis, otherwise unremarkable examination.. RADIATION DOSE DELIVERED: henrry Gongora=29.1 mGy
== END 2021-09-08 01:47 ==
PROVIDERS: PCP Family Medicine; Visit Provider Surgery
DX: K57.31 Diverticulosis of large intestine without perforation or abscess with bleeding (principal)
CPT/HCPCS: 74270

== ENCOUNTER 2021-09-27 11:00 | Outpatient (RCR) | payer SELFPAY ==
[2021-08-30 11:33] VITALS: BP 138/67; PULSE 68
[2021-09-01 10:54] VITALS: BP 113/65; PULSE 56
[2021-09-06 10:55] VITALS: BP 121/73; PULSE 60; O2SAT 93
[2021-09-08 11:02] VITALS: BP 97/67; PULSE 93
[2021-09-13 11:47] VITALS: BP 107/64; PULSE 53
[2021-09-15 10:59] VITALS: BP 100/57; PULSE 53; O2SAT 93
[2021-09-20 10:53] VITALS: BP 110/65; PULSE 55; O2SAT 93
[2021-09-22 11:01] VITALS: BP 132/64; PULSE 61
[2021-09-27 13:07] VITALS: BP 121/65; PULSE 53
[2021-09-29 11:54] VITALS: BP 104/60; PULSE 55
== END 2021-09-29 23:59 | disposition home or self-care (01) ==
LOC: CR 11:00
PROVIDERS: PCP Family Medicine; Visit Provider Family Medicine
DX: R69 Illness, unspecified (principal)

== ENCOUNTER 2021-10-27 11:00 | Outpatient (RCR) | payer SELFPAY ==
[2021-09-30 00:07] VITALS: BP 104/60; PULSE 55
[2021-10-04 11:03] VITALS: BP 105/64; PULSE 52
[2021-10-06 11:02] VITALS: BP 113/66; PULSE 55
[2021-10-11 11:16] VITALS: BP 100/58; PULSE 60
[2021-10-13 11:39] VITALS: BP 104/51; PULSE 56
[2021-10-18 13:15] VITALS: BP 109/61; PULSE 65
[2021-10-20 13:44] VITALS: BP 116/63; PULSE 54; O2SAT 93
[2021-10-25 11:17] VITALS: BP 102/61; PULSE 54
[2021-10-27 11:01] VITALS: BP 104/60; PULSE 53
== END 2021-10-29 23:59 | disposition home or self-care (01) ==
LOC: CR 11:00
PROVIDERS: PCP Family Medicine; Visit Provider Internal Medicine Cardiovascular Disease
DX: R69 Illness, unspecified (principal)
CPT/HCPCS: 80048; 80061

== ENCOUNTER 2021-11-29 10:59 | Outpatient (RCR) | payer SELFPAY ==
[2021-10-30 00:13] VITALS: BP 104/60; PULSE 53
[2021-11-01 13:20] VITALS: BP 129/66
[2021-11-03 10:59] VITALS: BP 122/65; PULSE 52
[2021-11-08 10:54] VITALS: BP 104/62; PULSE 54
[2021-11-10 11:00] VITALS: BP 103/59; PULSE 54
[2021-11-15 11:26] VITALS: BP 111/62; PULSE 56
[2021-11-24 10:57] VITALS: BP 105/61; PULSE 55
[2021-11-29 10:57] VITALS: BP 105/60; PULSE 51
== END 2021-11-29 23:59 | disposition home or self-care (01) ==
LOC: CR 10:59
PROVIDERS: PCP Family Medicine; Visit Provider Internal Medicine Cardiovascular Disease
DX: R69 Illness, unspecified (principal)

== ENCOUNTER 2021-12-20 11:00 | Outpatient (RCR) | payer SELFPAY ==
[2021-11-30 00:06] VITALS: BP 105/60; PULSE 51
[2021-12-01 11:07] VITALS: BP 121/66; PULSE 49
[2021-12-06 11:16] VITALS: BP 126/72; PULSE 55; O2SAT 92
[2021-12-08 11:56] VITALS: BP 128/67; PULSE 48
[2021-12-13 11:02] VITALS: BP 109/61; PULSE 54
[2021-12-15 11:17] VITALS: BP 116/62; PULSE 52
[2021-12-20 10:57] VITALS: BP 148/71; PULSE 69; O2SAT 93
== END 2021-12-29 23:59 | disposition home or self-care (01) ==
LOC: CR 11:00
PROVIDERS: PCP Family Medicine; Visit Provider Internal Medicine Cardiovascular Disease
DX: R69 Illness, unspecified (principal)

== ENCOUNTER 2022-01-19 11:00 | Outpatient (RCR) | payer SELFPAY ==
[2022-01-03 14:20] VITALS: BP 112/65; PULSE 64
[2022-01-05 10:57] VITALS: BP 99/61; PULSE 69; O2SAT 92
[2022-01-10 11:02] VITALS: BP 123/61; PULSE 77; O2SAT 91
[2022-01-12 11:00] VITALS: BP 129/67; PULSE 41
[2022-01-17 10:56] VITALS: BP 101/58; PULSE 82; O2SAT 91
[2022-01-19 11:18] VITALS: BP 108/62; PULSE 83
== END 2022-01-29 23:59 | disposition home or self-care (01) ==
LOC: CR 11:00
PROVIDERS: PCP Family Medicine; Visit Provider Internal Medicine Cardiovascular Disease
DX: R69 Illness, unspecified (principal)

== ENCOUNTER 2022-01-24 15:38 | Outpatient (REF) | payer MEDICARE, OTHER, SELFPAY ==
[2022-01-24 17:50] LABS: C Diff PCR Negative (Negative)
[2022-01-25 22:08] LABS: Campylobacter PCR Negative (Negative); Salmonella PCR Negative (Negative); Shiga Toxin PCR Negative (Negative); Shigella/Enteroinvasive Ecoli Negative (Negative)
== END 2022-01-24 15:39 | disposition home or self-care (01) ==
LOC: LBN 15:38
PROVIDERS: PCP Family Medicine; Visit Provider Surgery
DX: K52.9 Noninfective gastroenteritis and colitis, unspecified (principal); K57.31 Diverticulosis of large intestine without perforation or abscess with bleeding
CPT/HCPCS: 87493; 87505

== ENCOUNTER 2022-01-26 09:12 | Outpatient (CLI) | payer MEDICARE, OTHER, SELFPAY ==
--- NOTE | 2022-01-26 09:00 | RT.EKG_ITS ---
APPROVED REPORT Exam: Resting ECG Reason for Exam: chest discomfort Patient Location: O HR:98 bpm ECG Measurements Heart Rate 98 AXIS AR 123 P 71 QRSd 86 QRS 53 QT 348 T -38 QTc 442 Conclusion Sinus rhythm...normal P axis, V-rate 60- 99 Atrial premature complex...SV complex w/ short R-R interval
== END 2022-01-26 09:13 | disposition home or self-care (01) ==
LOC: DI.CM 09:13
PROVIDERS: PCP Family Medicine; Visit Provider Nurse Practitioner Family
DX: R07.89 Other chest pain (principal); R94.31 Abnormal electrocardiogram [ECG] [EKG]; I49.1 Atrial premature depolarization
CPT/HCPCS: 93010

== ENCOUNTER 2022-01-26 09:39 | Inpatient (IN) | payer MEDICARE, OTHER, SELFPAY ==
[2022-01-26] VITALS (107 sets, daily range): BP systolic 76–133; BP diastolic 43–113; PULSE 52–180; RESP 12–33; TEMP 35.3–37.3; O2SAT 88–94
--- NOTE | 2022-01-26 09:30 | RT.EKG_ITS ---
APPROVED REPORT Exam: Resting ECG Reason for Exam: Cough Patient Location: E HR:94 bpm ECG Measurements Heart Rate 94 AXIS MT 123 P 67 QRSd 85 QRS 31 QT 341 T -9 QTc 424 Conclusion Sinus rhythm...normal P axis, V-rate 60- 99 Atrial premature complexes...SV complexes w/ short R-R intvls inferior Q >35mS in II III aVF
--- NOTE | 2022-01-26 09:45 | DI.RAD_ITS ---
Exam(s) XR PORTABLE CHEST AP EXAM: XR PORTABLE CHEST AP CLINICAL HISTORY: Shortness of breath TECHNIQUE: 2D digital imaging was performed of the chest. One image was obtained. An AP view was ob tained. COMPARISON: CR,XR XR PORTABLE CHEST AP from 11/29/2019 CR XR RIBS LT W PA LAT CHEST from 08/09/2021 CR RF ABDOMEN from 09/07/2021 CR,RF RF BARIUM ENEMA from 09/08/2021 FINDINGS: MEDIASTINUM: Normal. HEART: Normal. PULMONARY VASCULATURE: Normal. LUNGS: Clear. The lungs are hyperinflated suggesting underlying COPD. PLEURAL SPACE: No pleural effusion or pneumothorax. There is blunting of the right costophrenic angle which may represent a small pleural effusion or scarring. BONE:Within normal limits for the patient's age. OTHER FINDINGS:Normal. IMPRESSION: Possible small right pleural effusion. Otherwise no acute abnormality. DATA REPOSITORY: RADIATION DOSE DELIVERED:
--- NOTE | 2022-01-26 09:59 | ED.GENADUL_ITS ---
Discharge Plan Disposition Patient Disposition: [facility] INPATIENT Condition: Improving Discharge Details Chief Complaint: Chest Pain Clinical Impression: CHF (congestive heart failure) Primary Care Provider: Jovany Lott ED Provider: Nelson Au Home Meds and New Rx's Prescriptions: No Action furosemide [Lasix] 20 mg tablet 20 mg PO Q OTHER DAY Qty: 90 6RF Eliquis 5 mg tablet 5 mg PO BID Qty: 180 3RF lisinopril 5 mg tablet 5 mg PO DAILY Qty: 90 3RF nitroglycerin 0.4 mg tablet, sublingual 0.4 mg sublingual Q5M PRN Rx Instructions: do not exceed 3 doses per episode metoprolol succinate 25 mg tablet extended release 24 hr 25 mg PO HS aspirin 81 mg Tablet 81 mg PO DAILY cholecalciferol (vitamin D3) [Vitamin D3] 50 mcg (2,000 unit) Tablet 2,000 unit PO DAILY Rx Instructions: 1 every other day Medical Decision Making 77-year-old male presents on referral from urgent care. He describes to me 2 to 4 weeks of cough, congestion, production of clear sputum, shortness of breath that is increased with exertion. He states he had COVID on approximately December 21, and then tested negative at the end of the month. He states that that illness he felt a cough, GI upset and general malaise. He feels he has not been the same since having COVID. Today he arrives oxygenating 91% on room, speaking full sentences. Differential gnosis is broad including bronchitis, pneumonia, flu or viral illness, pulmonary edema. Patient IV access established, screening labs and chest x-ray obtained. Chest x-ray reveals small right pleural effusion, otherwise no acute abnormality. All laboratories with a white count of 6, hematocrit 43, platelets 120. INR is 1.2. Sodium slightly low at 135, potassium 3.9, 4.1, bicarb 24, BUN 25, creatinine 1.3. LFTs unremarkable, BNP of 996, Trop negative. Patient observed. With ambulation in the room the patient desaturated to 85%, his pulse elevates to greater than 100 and he is symptomatic with labored breathing. I do feel this is most consistent with a CHF exacerbation. He states that he takes his Lasix every other day and has done so since having stents placed in 2019. We will initiate IV diuresis, admit for further management. HPI General Mode of arrival: ambulatory . Date/Time Provider Initiated Documentation: 01/26/22 09:39 . Limitations to Documentation: no limitations . Information obtained by: patient and family . History of Present Illness 77 year old M presents to the emergency department with the chief complaint of 2 to 4 weeks of cough and short of breath, described as moderate, and is localized to the chest. Patient reports no radiation. Patient started experiencing this week(s) and it has been intermittent. Rest improves symptom(s), Movement worsens symptoms . Patient notes cough, shortness of breath and other (Chest pressure when he feels his heart rate high); denies fever/chills. Patient did receive the following treatments prior to arrival, none Related Data Home Medications Medication Instructions Recorded Confirmed lisinopril 5 mg tablet 5 mg PO DAILY #90 tabs 05/17/20 01/26/22 apixaban 5 mg tablet (Eliquis) 5 mg PO BID #180 tabs 11/08/20 01/26/22 furosemide 20 mg tablet (Lasix) 20 mg PO Q OTHER DAY #90 tabs 11/08/20 01/26/22 aspirin 81 mg tablet 81 mg PO DAILY 12/06/20 01/26/22 cholecalciferol (vitamin D3) 50 2,000 unit PO DAILY 12/06/20 01/26/22 mcg (2,000 unit) tablet (Vitamin D3) nitroglycerin 0.4 mg sublingual 0.4 mg sublingual Q5M PRN 06/09/21 01/26/22 tablet metoprolol succinate 25 mg 25 mg PO HS 08/24/21 01/26/22 tablet,extended release 24 hr Previous Rx's Medication Instructions Recorded lisinopril 5 mg tablet 5 mg PO DAILY #90 tabs 05/17/20 apixaban 5 mg tablet (Eliquis) 5 mg PO BID #180 tabs 11/08/20 furosemide 20 mg tablet (Lasix) 20 mg PO Q OTHER DAY #90 tabs 11/08/20 Allergies Allergy/AdvReac Type Severity Reaction Status Date / Time amitriptyline Allergy Intermediate stiff neck Verified 01/26/22 09:47 and congestion ezetimibe [From Zetia] Allergy Intermediate made me Verified 01/26/22 09:47 feel like crap. Kyrltll-CME-BtI Reductase Allergy Intermediate Other (See Unverified 01/26/22 09:47 Inhibitor Comment) [Pavtzhf-Jyv-Adv Reductase Inhibitor] tiotropium Allergy Intermediate neck Verified 01/26/22 09:47 [From Spiriva with stiffness/soreness HandiHaler] atorvastatin [From Lipitor] Allergy Unknown myalgias Verified 01/26/22 09:47 Penicillins Allergy Unknown as a child Unverified 01/26/22 09:47 evolocumab Allergy Mild body aches Uncoded 01/26/22 09:47 fabric softner Allergy Mild Uncoded 01/26/22 09:47 General Stated Complaint: Chest Pain GRAY: 3 Review of Systems Narrative: No lower extremity edema. No rash. No recent fevers. Clear sputum production, cough, some increased shortness of breath with exertion. Chest pressure with high heart rate at home. 8 Systems reviewed and PFSH All Active Problems (Updated 01/26/22 @ 12:57 by Nelson Au MD) CHF (congestive heart failure) (Chronic) Diverticulosis large intestine w/o perforation or abscess w/bleeding (Acute) severe Frequent stools (Acute) Diarrhea (Acute) STEMI (ST elevation myocardial infarction) (Acute) 10/2019 Hyperlipidemia (Acute) Hemorrhage secondary to anti-coagulation (Acute) Pulmonary embolism (Chronic) COPD (chronic obstructive pulmonary disease) (Chronic) Atrial fib/flutter, transient (Acute) Rectal hemorrhage (Acute) Prediabetes (Acute) Occult blood positive stool (Acute) Chronic kidney disease (Chronic) Anxiety (Chronic) Coronary artery disease (Chronic) CVA (cerebral vascular accident) (Acute) Hemorrhoids, external (Acute) Peripheral artery disease (Acute) Decreased diffusion capacity of lung (Acute) Positive colorectal cancer screening using Cologuard test (Acute) Back pain (Acute) Medical History Achilles tendonitis Familial hyperlipidemia Former smoker Heart attack 11/29/2019 mini stroke w/ heart attack per pt.HE History of amputation of finger RIF Myocardial abscess Right inguinal hernia Surgical History History of colonoscopy with polypectomy (~08/26/21) 08/26/21 Stoiber, incomplete, severe diverticular disease, Status post cardiac catheterization 11/18 w/x3 MACARIO in RCA Social History Smoking/Tobacco Use Status: Former Tobacco Use Quit Date: 11/29/19 Smoking risk assessment performed?: Yes Alcohol Intake: former Drug use: Never Substance use type: does not use Do you feel safe at home: Yes Do you feel safe in your relationship?: Yes Exam Narrative Exam Narrative: GEN: awake, alert, oriented 3. Pleasant, well groomed, interactive. HEAD: Normocephalic, atraumatic ENT: Mucous membranes moist, oropharynx unremarkable, External ear exam unremarkable EYES: PERRL, EOMI NECK: Full ROM, no NANCY, no menigismus CHEST/RESP: Nontender, CARDIOVASCULAR: Distant, RRR, no murmur, rub liu. 2+ Rad pulse bilateral ABDOMEN: Soft, nontender, no mass. +Bowel sounds EXT: Full ROM, no edema, no rash Neuro: Grossly normal neurologic exam, conversant, interactive. Psych: Speech fluent, thoughts congruent, affect normal Course Vital Signs Vital signs: Vital Signs Temperature 37.3 C 01/26/22 09:42 Pulse 97 H 01/26/22 09:42 Respiratory Rate 20 01/26/22 09:42 Blood Pressure 133/113 H 01/26/22 09:42 Pulse Oximetry 92 01/26/22 09:42 Temperature 37.3 C 01/26/22 09:42 Temperature Source Temporal Artery Scan 01/26/22 09:42 Pulse 97 H 01/26/22 09:42 Respiratory Rate 20 01/26/22 09:42 Respiratory Effort 01/26/22 09:48 Respiratory Depth Normal 01/26/22 09:48 Respiratory Pattern Normal 01/26/22 09:48 Blood Pressure 133/113 H 01/26/22 09:42 Pulse Oximetry 92 01/26/22 09:42 Oxygen Delivery Method Room Air 01/26/22 09:42 Oxygen Flow Rate 0 01/26/22 09:42 Pain Level 2 01/26/22 09:42
[2022-01-26 10:20] LABS: Abs Immature Grans 0.02 10^3/uL (0.0-0.06); Absolute Basophil Count 0.05 10^3/uL (0.0-0.2); Absolute Eosinophil Count 0.18 10^3/uL (0.0-0.7); Absolute Lymphocyte Count 1.45 10^3/uL (1.2-3.4); Absolute Neutrophil Count 3.55 10^3/uL (1.2-6.7); Basophils % 0.8; Eosinophils % 2.9; HCT 43.9 % (40.0-50.0); HGB 14.2 g/dL (13.5-17.5); Immature Grans % 0.3; Lymphocytes % 23.2; MCH 28.5 pg (27.0-33.0); MCHC 32.3 % (32.0-36.0); MCV 88 fL (80-95); MPV 13.2 fL (8.0-11.0); Neutrophils % 56.8; Platelet Count 120 10^3/uL (130-400); RBC 4.98 10^6/uL (4.36-5.78); RDW-SD 42.5 fL; WBC 6.25 10^3/uL (4.4-10.8)
[2022-01-26 10:27] LABS: INR 1.2 (0.9-1.1)
[2022-01-26] MEDS: Normal Saline 250 ML 500 ML IV (10:31)
[2022-01-26 10:38] LABS: ALT 56 U/L (16-63); AST 36 U/L (15-37); Albumin 3.4 g/dL (3.4-5.0); Alkaline Phosphatase 83 U/L (46-116); Anion Gap 9.3 mmol/L (3-11); BUN 25 mg/dL (7-18); Bilirubin, Total 0.6 mg/dL (0.2-1.0); CO2 24.7 mmol/L (21.0-32.0); CREATININE 1.3 mg/dL (0.70-1.30); Calcium 9.9 mg/dL (8.5-10.1); Chloride 101 mmol/L (98-107); Estimated GFR 53.67 (mL/min/1.73m2); Glucose 123 mg/dL (74-106); NT-proBNP 996 pg/mL (<300); Potassium 3.9 mmol/L (3.5-5.1); Sodium 135 mmol/L (136-145); Total Protein 8.1 g/dL (6.4-8.2); Troponin I < 50 ng/L (<or=60)
[2022-01-26 12:14] LABS: Influenza A PCR Negative (Negative); Influenza B PCR Negative (Negative); RSV PCR Negative (Negative)
[2022-01-26 12:19] LABS: COVID-19 PCR Positive (Negative)
--- NOTE | 2022-01-26 12:29 | NUR.NOTE ---
per MD pt had trial of walking in room after 3 minuets of walking slowly in room SPO2 85% room air, pulse 103. after pt sat for 5 mins stats back to 92% room air and 79 pulse
[2022-01-26] MEDS: Furosemide 20 MG/2 ML VIAL IVP ×2 (12:44→16:32)
--- NOTE | 2022-01-26 14:02 | W.PM.HP.N ---
Date of service: 01/26/22 Time of Service: 14:02 Assessment and Plan Assessment and plan (1) CHF (congestive heart failure): Status: Chronic Assessment and plan: given IV lasix in the ED monitor I&O closely, daily weights echo pending. KESHAWN inhibitor will place on hold for now d/t low blood pressures. cycle serial troponins monitor on telemetry add TSH suspect d/t elevated heart rate last echo was jul 2021: Conclusion Left Ventricle : The left ventricle is normal size. Left ventricular systolic function is moderately decreased. There is normal left ventricular wall thickness. Regional wall motion abnormalities are noted. The diastolic function is abnormal. LVEF is 43%. Right Ventricle : Right ventricle is grossly normal in size. Right ventricular systolic function is grossly normal. The RVSP is 24.3 mmHg. Mitral Valve : Mild mitral annular calcification. Mild mitral regurgitation. No evidence of mitral valve stenosis. Great Vessels : The aortic root is normal in size. The ascending aorta is normal in size. Aortic arch is not well visualized. IVC is normal in size and collapses >50% with inspiration. Compared to study from 04/06/20 there is no significant change. (2) Atrial fib/flutter, transient: Status: Chronic Assessment and plan: has history of noted to be in sinus rhythm on arrival. reports episode of rapid heart rate this morning, I suspect afib with RVR. had similar episode 1 week ago will continue metoprolol monitor on telemetry fully anticoagulated on eliquis. electrolytes including mag OK add TSH (3) Elevated troponin: Status: Acute Assessment and plan: following episode of rapid heart rate this morning that has resolved. will cycle troponin is fully anticoagulated on eliquis sees DR Pablo outpatient, will place consult (4) COPD (chronic obstructive pulmonary disease): Status: Chronic Assessment and plan: allergy to triotropium will trial combivent respimat while hospitalized. (5) Chronic kidney disease: Status: Chronic Assessment and plan: creatinine stable and at or below baseline will monitor (6) COVID-19: Status: Acute Assessment and plan: was symptomatic and tested positive on home test December 23, repeat antigen testing on December 29 was negative. patient testing positive today on PCR is likely residual from original infection which can test positive for months by PCR. He has not had fever or symptoms of new illness so unlikely a new infection. He has not felt well since having covid and today presentation was following an episode of rapid heart rate with chest pressure and increased sob which is most consistent with CHF from an episode of rapid afib/heart rate. No indication for acute treatment of covid at this time. discussed with DR Ramirez. History of Present Illness History of Present Illness Chief Complaint: shortness of breath Narrative: This is a 77-year-old male who presents to the ED on a referral from urgent care.?he reports episode of chest pressure today with associated shortness of breath, he took his pulse and blood pressure and noted his pulse in the 130's. He states he had a similar episode about one week ago when noted his pulse was around 150. His wanted him to come for evaluation at that time but his symptoms subsided so he did not want to come in. because of this second episode, he states his was insistent that he was evaluated and he agreed so presented to urgent care accordingly, then referred here. Of note, he reports not feeling well since have covid at the end of November, stating 2 to 4 weeks of cough, congestion, production of clear sputum, shortness of breath that is increased with exertion.? He states he had COVID on approximately December 21, and then tested negative at the end of the month (both home antigen tests).? He states he felt a cough, GI upset and general malaise, and he has not been the same since having COVID. His work up in the ED was felt to be most consistent with congestive heart failure at this time. Hospitalist services was asked to admit for further management and monitoring. He was given 20 mg of IV lasix in the ED prior to admission. He has been asymptomatic with no further chest pressure and no shortness of breath at rest. Review of Systems All systems reviewed & are unremarkable except as noted in HPI and below Constitutional Constitutional: Reports body ache(s), Reports fatigue, Denies fever(s) and Reports weakness ENT Ears, Nose, Mouth, and Throat: Denies vertigo and Denies dizziness Cardiovascular Cardiovascular: Reports chest pain and Reports dyspnea Respiratory Respiratory: Reports cough, Reports dyspnea and Denies wheezing Gastrointestinal Gastrointestinal: Denies abdominal pain Genitourinary Genitourinary: Denies difficulty urinating Musculoskeletal Musculoskeletal: Reports myalgias Neurologic Neurologic: Denies vertigo, Denies dizziness and Reports weakness Endocrine Endocrine: Reports fatigue Allergic/Immunologic Allergic/Immunologic: Denies wheezing PFSH All Active Problems (Updated 01/26/22 @ 17:42 by Bertha Porras NP) Elevated troponin (Acute) COVID-19 (Acute) CHF (congestive heart failure) (Chronic) Diverticulosis large intestine w/o perforation or abscess w/bleeding (Acute) severe Frequent stools (Acute) Diarrhea (Acute) STEMI (ST elevation myocardial infarction) (Acute) 10/2019 Hyperlipidemia (Acute) Hemorrhage secondary to anti-coagulation (Acute) Pulmonary embolism (Chronic) COPD (chronic obstructive pulmonary disease) (Chronic) Atrial fib/flutter, transient (Chronic) Rectal hemorrhage (Acute) Prediabetes (Acute) Occult blood positive stool (Acute) Chronic kidney disease (Chronic) Anxiety (Chronic) Coronary artery disease (Chronic) CVA (cerebral vascular accident) (Acute) Hemorrhoids, external (Acute) Peripheral artery disease (Acute) Decreased diffusion capacity of lung (Acute) Positive colorectal cancer screening using Cologuard test (Acute) Back pain (Acute) Medical History Achilles tendonitis Familial hyperlipidemia Former smoker Heart attack 11/29/2019 mini stroke w/ heart attack per pt.HE History of amputation of finger RIF Myocardial abscess Right inguinal hernia Surgical History History of colonoscopy with polypectomy (~08/26/21) 08/26/21 Stoiber, incomplete, severe diverticular disease, Status post cardiac catheterization 11/18 w/x3 MACARIO in RCA Social History Smoking/Tobacco Use Status: Former Tobacco Use Quit Date: 11/29/19 Smoking risk assessment performed?: Yes Alcohol Intake: former Drug use: Never Substance use type: does not use Do you feel safe at home: Yes Do you feel safe in your relationship?: Yes Meds Allergies and Home Medications Allergies Allergy/AdvReac Type Severity Reaction Status Date / Time amitriptyline Allergy Intermediate stiff neck Verified 01/26/22 09:47 and congestion ezetimibe [From Zetia] Allergy Intermediate made me Verified 01/26/22 09:47 feel like crap. Mtvreau-ANZ-IaD Reductase Allergy Intermediate Other (See Unverified 01/26/22 09:47 Inhibitor Comment) [Vkxouxd-Rfh-Fue Reductase Inhibitor] tiotropium Allergy Intermediate neck Verified 01/26/22 09:47 [From Spiriva with stiffness/soreness HandiHaler] atorvastatin [From Lipitor] Allergy Unknown myalgias Verified 01/26/22 09:47 Penicillins Allergy Unknown as a child Unverified 01/26/22 09:47 evolocumab Allergy Mild body aches Uncoded 01/26/22 09:47 fabric softner Allergy Mild Uncoded 01/26/22 09:47 Home Medications Medication Instructions Recorded Confirmed Type lisinopril 5 mg tablet 5 mg PO DAILY #90 tabs 05/17/20 01/26/22 Rx apixaban 5 mg tablet (Eliquis) 5 mg PO BID #180 tabs 11/08/20 01/26/22 Rx furosemide 20 mg tablet (Lasix) 20 mg PO Q OTHER DAY #90 tabs 11/08/20 01/26/22 Rx aspirin 81 mg tablet 81 mg PO DAILY 12/06/20 01/26/22 History cholecalciferol (vitamin D3) 50 2,000 unit PO DAILY 12/06/20 01/26/22 History mcg (2,000 unit) tablet (Vitamin D3) nitroglycerin 0.4 mg sublingual 0.4 mg sublingual Q5M PRN 06/09/21 01/26/22 History tablet metoprolol succinate 25 mg 25 mg PO HS 08/24/21 01/26/22 History tablet,extended release 24 hr Exam Const General: cooperative, comfortable, no acute distress and frail appearing Nutritional Appearance: thin Orientation: alert, awake and oriented x3 HENMT Head: normal to inspection, normocephalic and atraumatic Mouth: oral mucosae normal Neck Neck: normal visual inspection and no JVD Chest Chest: normal inspection of the chest Resp Effort & Inspection: normal respiratory effort Auscultation: diminished lung sounds Cardio Rate: regular rate Rhythm: regular rhythm GI Inspection: normal to inspection Palpation: soft Auscultation: normal bowel sounds Skin General skin exam: no rashes or lesions noted Neuro General: patient alert, patient awake and patient oriented x3 Cognition: normal cognition Speech: speech normal Extrem General: normal to inspection, full ROM and no pedal edema Results Labs Result diagrams: 01/26/22 10:00 01/26/22 10:00 Labs: Laboratory Results - last 24 hr 01/26/22 01/26/22 01/26/22 10:00 10:00 10:00 WBC 6.25 RBC 4.98 Hgb 14.2 Hct 43.9 MCV 88 MCH 28.5 MCHC 32.3 RDW Plt Count 120 L MPV 13.2 H Immature Gran % 0.3 Neutrophils % 56.8 Lymphocytes % 23.2 Monocytes % 16.0 Eosinophils % 2.9 Basophils % 0.8 Nucleated RBC % 0.0 Absolute Neutrophils 3.55 Absolute Lymphocytes 1.45 Absolute Monocytes 1.00 H Absolute Eosinophils 0.18 Absolute Basophils 0.05 PT 12.0 H INR 1.2 H Sodium 135 L Potassium 3.9 Chloride 101 Carbon Dioxide 24.7 Anion Gap 9.3 BUN 25 H Creatinine 1.3 Estimated GFR/1.73 m2 53.67 Glucose 123 H Calcium 9.9 Magnesium 2.0 Total Bilirubin 0.6 AST 36 ALT 56 Alkaline Phosphatase 83 Troponin I < 50 NT-Pro-B Natriuret Pep 996 H Total Protein 8.1 Albumin 3.4 COVID-19 Source SARS-CoV-2 (PCR) Influenza Type A (PCR) Influenza Type B (PCR) RSV (PCR) 01/26/22 10:30 WBC RBC Hgb Hct MCV MCH MCHC RDW Plt Count MPV Immature Gran % Neutrophils % Lymphocytes % Monocytes % Eosinophils % Basophils % Nucleated RBC % Absolute Neutrophils Absolute Lymphocytes Absolute Monocytes Absolute Eosinophils Absolute Basophils PT INR Sodium Potassium Chloride Carbon Dioxide Anion Gap BUN Creatinine Estimated GFR/1.73 m2 Glucose Calcium Magnesium Total Bilirubin AST ALT Alkaline Phosphatase Troponin I NT-Pro-B Natriuret Pep Total Protein Albumin COVID-19 Source Not Applicable SARS-CoV-2 (PCR) Positive A Influenza Type A (PCR) Negative Influenza Type B (PCR) Negative RSV (PCR) Negative Last Vital Signs Temp 37.3 C 01/26/22 09:42 Pulse 74 01/26/22 13:33 Resp 29 H 01/26/22 13:33 BP 99/53 L 01/26/22 13:33 Pulse Ox 92 01/26/22 13:33
[2022-01-26 14:08] LABS: Troponin I 128 ng/L (<or=60)
[2022-01-26 14:51] LABS: TSH (W/Ref FT4) < 0.01 uIU/mL (0.36-3.74)
[2022-01-26 15:08] LABS: FREE T4 7.21 ng/dL (0.76-1.46)
--- NOTE | 2022-01-26 16:00 | DI.US_ITS ---
APPROVED REPORT EXAM: Comprehensive 2D, Doppler, and color-flow Echocardiogram Patient Location: In-Patient Room/Bed: [address] Tinter: Shanita Gamez RDCS (AE) Indications: CHF Other Information Study Quality: Adequate. Technically limited study due to inability to position patient exam done bed side supine. Conclusion Normal left ventricular wall thickness and chamber size. Estimated ejection fraction is 55 to 60%. There are no segmental wall motion abnormalities Normal right ventricular size and systolic function Both atria are normal in size There is no structural or hemodynamically significant valvular disease Estimated right ventricular systolic pressure is 34 mmHg Wall motion Left Ventricle The left ventricle is normal size. The left ventricular systolic function is normal. The left ventric ular ejection fraction is within the normal range. There is normal left ventricular wall thickness. T here is normal LV segmental wall motion. There is no ventricular septal defect visualized. LVEF is 56 %. Right Ventricle The right ventricle is normal size. The right ventricular systolic function is normal. The RVSP is 33 .8 mmHg. Atria The left atrium size is normal. The right atrium size is normal. The interatrial septum is intact wit h no evidence for an atrial septal defect. Aortic Valve The aortic valve is normal in structure. Aortic valve is trileaflet. There is no aortic valvular sten osis. No aortic regurgitation is present. Mitral Valve The mitral valve is normal in structure. No evidence of mitral valve stenosis. Trace mitral regurgita tion. Tricuspid Valve The tricuspid valve is normal in structure. There is no tricuspid valve stenosis. Trace tricuspid reg urgitation. Pulmonic Valve Pulmonic valve is not well visualized. There is no pulmonic valvular stenosis. There is no pulmonic v alvular regurgitation. Great Vessels The aortic root is normal in size. Ascending aorta is not well visualized. Aortic arch is not well vi sualized. IVC is normal in size and collapses >50% with inspiration. Pericardium There is no pericardial effusion. 2D Dimensions IVSD d PLAX 0.84 cm M: 0.6-1.2 LV Vol A2C d MOD 83.5 mL LVPW d PLAX 0.83 cm M: 0.6 - 1.2 LV Vol A4C d MOD 97.6 mL LVID d PLAX 5.07 cm M: 4.2 - 5.8 LA vol/ BSA A2C s A-L 14.0 mL/m2 LVDs 3.55 cm M: 2.5 - 4.0 LA Area A2C s MOD 11.20 cm2 Ao Root d 2.96 cm M: 3.1 - 3.7 LV EF A4C MOD 55.8 % RA Area A4C 13.04 cm2 LV EF A2C MOD 56.9 % RA Vol/ BSA A4C s A-L 20.1 mL/m2 LV EF Biplane MOD 56.1 % LV EF Teichholz 56.4 % SV 51.28 mL LVEF (Orourke's) 56.08 % M: 52 - 72 SV Index 28.35 mL/m2 LV Volume 71.01 mL M: 62 - 150 LV Volume Index 39.23 mL/m2 M: 34 - 74 LV Vol Biplane MOD 91.5 mL FS 29.65 % M-Mode TAPSE 1.08 cm (M/F) >1.7 LV Diastology MV E' medial 0.082 (>0.07 m/s) E/A Ratio 0.7 LV E/e MED 6.10 (<14) MV E Vmax 0.50 (0.4-1.3 m/s) MV E' lateral 0.071 (>0.1 m/s) MV A Vmax 0.70 (0.4-1.3 m/s) LV E/e LAT 7.05 (<14) MV E/A Ratio 0.68 MV E/E' medial 6.12 MV E/E' lateral 7.07 Aortic Valve LVOT Area 3.29 cm2 AoV Area Vmax 1.92 cm2 LVOT Vmax 1.06 m/s AoV Area/ BSA (Vmax) 1.06 cm2/m2 LVOT Mean Bart. 0.81 m/s KELVIN Mean Bart. 2.20 cm2 LVOT Peak Grad 4.5 mmHg KELVIN Mean Bart. Index 1.22 cm2/m2 LVOT Mean Grad 2.9 mmHg LVOT VTI 0.185 m LVOT Diam s 2.00 cm AoV Vmax 1.81 m/s Velocity Ratio 0.58 AoV Mean Bart. 1.22 m/s AoV Peak Grad 13.1 mmHg LVOT SV 61.09 mL AoV Mean Grad 6.8 mmHg AoV VTI 0.293 m AoV Area VTI 2.09 cm2 AoV Area/ BSA (VTI) 1.15 cm/m2 Mitral Valve MV DT 318 (160-240 msec) MV PHT 92 msec MV Area PHT 2.39 cm2 MV VTI 0.247 m MV Area VTI 2.47 (4.0-6.0 cm2) Pulmonary Valve PV Vmax 1.38 (0.5-1.5 m/s) RVOT Peak Gr. 2.12 mmHg PV Peak Grad 7.6 mmHg RVOT Mean Gr. 1.00 mmHg PV Mean Grad 4.5 mmHg RVOT VTI 0.117 m PV VTI 0.227 m RVOT Vmax 0.73 m/s Tricuspid Valve TR Peak Grad 30.7 mmHg TR Vmax 2.77 m/s RA Pressure 3.00 mmHg RVSP (TR) 33.8 mmHg
[2022-01-26] MEDS: Normal Saline Flush 10 ML SYR IVP ×2 (16:32→20:41)
[2022-01-26] MEDS: Ipratropium/Albuterol 4 GM 120 PUFF INH IH ×2 (16:34→19:40)
[2022-01-26 18:56] LABS: Troponin I 108 ng/L (<or=60)
[2022-01-26] MEDS: Apixaban 5 MG TAB PO (19:37)
--- NOTE | 2022-01-26 20:45 | RT.EKG_ITS ---
APPROVED REPORT Exam: Resting ECG Reason for Exam: [facility] Patient Location: I HR:162 bpm ECG Measurements Heart Rate 162 AXIS MI [id number] P [id number] QRSd 128 QRS 0 QT 292 T 172 QTc 480 Conclusion Wide-QRS tachycardia...V-rate>(220-age), QRSd>120 Nonspecific intraventricular conduction delay...QRSd >115mS, not LBBB/RBBB Suspect atrial fibrillation with aberrancy
[2022-01-26 21:05] LABS: Anion Gap 12.6 mmol/L (3-11); BUN 28 mg/dL (7-18); CO2 21.4 mmol/L (21.0-32.0); CREATININE 1.5 mg/dL (0.70-1.30); Calcium 9.3 mg/dL (8.5-10.1); Chloride 100 mmol/L (98-107); Glucose 106 mg/dL (74-106); Magnesium 1.9 mg/dL (1.8-2.4); Potassium 3.8 mmol/L (3.5-5.1); Sodium 134 mmol/L (136-145)
[2022-01-26] MEDS: Amiodarone 150 MG/3 ML VIAL IVP (21:28)
--- NOTE | 2022-01-26 21:36 | NUR.NOTE ---
Nursing notified by ICU nurse, patient experiencing heart rate in the 160's, sinus V-tach, asymptomatic. Patient was asked to bare down and heart rate returned to 80's. Patient then back up into the 160-170's approximately five minutes after first episode. Dr Mendiola in to assess patient and patient transfered to ICU at this time.
[2022-01-26] MEDS: POTASSIUM CHLORIDE 10 MEQ/100 ML BAG 100 MEQ IVPB ×2 (21:37→22:37)
[2022-01-26] MEDS: Metoprolol CR 25 MG TABCR PO (21:41)
[2022-01-26] MEDS: Amiodarone in Dextrose 360 MG/200 ML BAG 33.333 MG IV (22:25)
--- NOTE | 2022-01-26 23:06 | W.PM.PROGNOT ---
Date of Service Date of service: 01/26/22 Time of Service: 22:32 Assessment and Plan Assessment and plan (1) Tachyarrhythmia: Status: Acute Assessment and plan: New tachyarrhythmia. Ventricular vs Atrial fibrillation with aberrant conduction. Given his history and the rate and the fact is was perfusing, this is most likely the latter. Given uncertainty, we bolused with amiodarone per ACLS protocol for stable wide complex irregular tachycardia, started amiodarone drip. Transferred to ICU. He converted around 2300 to sinus rhythm. Continue to follow troponin, was trending down but likely to go back up. This was likely the same kind of episode that led to his admission and troponin bump. Cardiology consult already pending. Subjective Subjective Interval history since last seen: called by RN for patient in [facility] on tele. He feels some fluttering in his chest like he has in the past, but no pain. Not dizzy, comfortable otherwise, not SOB. Exam Const General: cooperative, comfortable, no acute distress, not anxious and not diaphoretic Resp Effort & Inspection: normal respiratory effort and able to speak in complete sentences Auscultation: clear to auscultation bilaterally Cardio Jugular venous pressure: no JVD Rate: tachycardic Rhythm: abnormal rhythm Heart Sounds: S1 normal and S2 normal Neuro General: patient alert and no focal motor deficits Objective Last Vital Signs Temp 37.3 C 01/27/22 04:00 Pulse 63 01/27/22 06:01 Resp 26 H 01/27/22 06:20 BP 103/55 L 01/27/22 06:01 Pulse Ox 87 L 01/27/22 06:20 Laboratory Results - last 24 hr 01/26/22 01/26/22 01/26/22 10:00 10:00 10:00 WBC 6.25 RBC 4.98 Hgb 14.2 Hct 43.9 MCV 88 MCH 28.5 MCHC 32.3 RDW Plt Count 120 L MPV 13.2 H Immature Gran % 0.3 Neutrophils % 56.8 Lymphocytes % 23.2 Monocytes % 16.0 Eosinophils % 2.9 Basophils % 0.8 Nucleated RBC % 0.0 Absolute Neutrophils 3.55 Absolute Lymphocytes 1.45 Absolute Monocytes 1.00 H Absolute Eosinophils 0.18 Absolute Basophils 0.05 PT 12.0 H INR 1.2 H Sodium 135 L Potassium 3.9 Chloride 101 Carbon Dioxide 24.7 Anion Gap 9.3 BUN 25 H Creatinine 1.3 Estimated GFR/1.73 m2 53.67 Glucose 123 H Calcium 9.9 Magnesium 2.0 Total Bilirubin 0.6 AST 36 ALT 56 Alkaline Phosphatase 83 Troponin I < 50 NT-Pro-B Natriuret Pep 996 H Total Protein 8.1 Albumin 3.4 TSH Free T4 COVID-19 Source SARS-CoV-2 (PCR) Influenza Type A (PCR) Influenza Type B (PCR) RSV (PCR) 01/26/22 01/26/22 01/26/22 10:30 13:30 13:30 WBC RBC Hgb Hct MCV MCH MCHC RDW Plt Count MPV Immature Gran % Neutrophils % Lymphocytes % Monocytes % Eosinophils % Basophils % Nucleated RBC % Absolute Neutrophils Absolute Lymphocytes Absolute Monocytes Absolute Eosinophils Absolute Basophils PT INR Sodium Potassium Chloride Carbon Dioxide Anion Gap BUN Creatinine Estimated GFR/1.73 m2 Glucose Calcium Magnesium Total Bilirubin AST ALT Alkaline Phosphatase Troponin I 128 H* NT-Pro-B Natriuret Pep Total Protein Albumin TSH < 0.01 L Free T4 7.21 H COVID- Source Not Applicable SARS-CoV-2 (PCR) Positive A Influenza Type A (PCR) Negative Influenza Type B (PCR) Negative RSV (PCR) Negative 01/26/22 01/26/22 18:25 18:25 WBC RBC Hgb Hct MCV MCH MCHC RDW Plt Count MPV Immature Gran % Neutrophils % Lymphocytes % Monocytes % Eosinophils % Basophils % Nucleated RBC % Absolute Neutrophils Absolute Lymphocytes Absolute Monocytes Absolute Eosinophils Absolute Basophils PT INR Sodium 134 L Potassium 3.8 Chloride 100 Carbon Dioxide 21.4 Anion Gap 12.6 H BUN 28 H Creatinine 1.5 H Estimated GFR/1.73 m2 45.50 Glucose 106 Calcium 9.3 Magnesium 1.9 Total Bilirubin AST ALT Alkaline Phosphatase Troponin I 108 H* NT-Pro-B Natriuret Pep Total Protein Albumin TSH Free T4 COVID-19 Source SARS-CoV-2 (PCR) Influenza Type A (PCR) Influenza Type B (PCR) RSV (PCR) Objective Narrative Objective Narrative: EKG: tachycardic 150s with wide QRS, R-R interval irregular using calipers.
[2022-01-27] VITALS (50 sets, daily range): BP systolic 89–118; BP diastolic 47–64; PULSE 63–134; RESP 14–33; TEMP 36.8–37.3; O2SAT 87–92
[2022-01-27] MEDS: Amiodarone in Dextrose 360 MG/200 ML BAG 33.333 MG IV (03:45)
[2022-01-27 08:15] LABS: Anion Gap 8.1 mmol/L (3-11); BUN 29 mg/dL (7-18); CO2 24.9 mmol/L (21.0-32.0); CREATININE 1.3 mg/dL (0.70-1.30); Calcium 9.2 mg/dL (8.5-10.1); Chloride 102 mmol/L (98-107); Estimated GFR 53.67 (mL/min/1.73m2); Glucose 105 mg/dL (74-106); Potassium 4.1 mmol/L (3.5-5.1); Sodium 135 mmol/L (136-145)
[2022-01-27 08:18] LABS: Troponin I 74 ng/L (<or=60)
[2022-01-27] MEDS: Aspirin E.C. 81 MG TABEC PO (08:37)
[2022-01-27] MEDS: Apixaban 5 MG TAB PO (08:37)
[2022-01-27] MEDS: Furosemide 20 MG/2 ML VIAL IVP (08:38)
[2022-01-27] MEDS: Ipratropium/Albuterol 4 GM 120 PUFF INH IH ×2 (09:08→11:36)
--- NOTE | 2022-01-27 09:12 | W.CARDCONSUL ---
Date of service: 01/27/22 Time of Service: 09:12 Assessment and Plan Assessment and plan (1) Tachyarrhythmia: Status: Acute Assessment and plan: Patient has recurrent atrial fibrillation with a Cheema C. He is converted to sinus rhythm with amiodarone. 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 He had at that time paroxysmal atrial fibrillation for which he has been anticoagulated with Eliquis. He was treated with amiodarone for a while but this was subsequently discontinued. He went to urgent care with difficulty breathing. It was suspected he might have congestive heart failure. He was admitted to the hospital. While hospitalized he had a rapid wide-complex tachycardia for which she has been started on intravenous amiodarone. Review of the EKG is most consistent with atrial fibrillation (recurrent), with aberrancy He is currently in sinus rhythm. He is then found to be COVID-positive. His chest x-ray did not disclose any significant vascular congestion. His echocardiogram was updated. It shows normal/preserved left ventricular systolic function. He had a minimally elevated troponin Review of Systems Narrative: Unable to obtain patient not interviewed [facility] All Active Problems Tachyarrhythmia (Acute) Elevated troponin (Acute) COVID-19 (Acute) CHF (congestive heart failure) (Chronic) Diverticulosis large intestine w/o perforation or abscess w/bleeding (Acute) severe Frequent stools (Acute) Diarrhea (Acute) STEMI (ST elevation myocardial infarction) (Acute) 10/2019 Hyperlipidemia (Acute) Hemorrhage secondary to anti-coagulation (Acute) Pulmonary embolism (Chronic) COPD (chronic obstructive pulmonary disease) (Chronic) Atrial fib/flutter, transient (Chronic) Rectal hemorrhage (Acute) Prediabetes (Acute) Occult blood positive stool (Acute) Chronic kidney disease (Chronic) Anxiety (Chronic) Coronary artery disease (Chronic) CVA (cerebral vascular accident) (Acute) Hemorrhoids, external (Acute) Peripheral artery disease (Acute) Decreased diffusion capacity of lung (Acute) Positive colorectal cancer screening using Cologuard test (Acute) Back pain (Acute) Medical History Achilles tendonitis Familial hyperlipidemia Former smoker Heart attack 11/29/2019 mini stroke w/ heart attack per pt.HE History of amputation of finger RIF Myocardial abscess Right inguinal hernia Surgical History History of colonoscopy with polypectomy (~08/26/21) 08/26/21 Stoiber, incomplete, severe diverticular disease, Status post cardiac catheterization 11/18 w/x3 MACARIO in RCA Social History Smoking/Tobacco Use Status: Former Tobacco Use Quit Date: 11/29/19 Smoking risk assessment performed?: Yes Alcohol Intake: former Drug use: Never Substance use type: does not use Do you feel safe at home: Yes Do you feel safe in your relationship?: Yes Exam Narrative Exam Narrative: Patient was not examined Results Last Vital Signs Temp 37.3 C 01/27/22 04:00 Pulse 63 01/27/22 06:01 Resp 26 H 01/27/22 06:20 BP 103/55 L 01/27/22 06:01 Pulse Ox 87 L 01/27/22 06:20 Labs Result diagrams: 01/26/22 10:00 01/27/22 07:10 Labs: Laboratory Results - last 24 hr 01/26/22 01/26/22 01/26/22 10:00 10:00 10:00 WBC 6.25 RBC 4.98 Hgb 14.2 Hct 43.9 MCV 88 MCH 28.5 MCHC 32.3 RDW Plt Count 120 L MPV 13.2 H Immature Gran % 0.3 Neutrophils % 56.8 Lymphocytes % 23.2 Monocytes % 16.0 Eosinophils % 2.9 Basophils % 0.8 Nucleated RBC % 0.0 Absolute Neutrophils 3.55 Absolute Lymphocytes 1.45 Absolute Monocytes 1.00 H Absolute Eosinophils 0.18 Absolute Basophils 0.05 PT 12.0 H INR 1.2 H Sodium 135 L Potassium 3.9 Chloride 101 Carbon Dioxide 24.7 Anion Gap 9.3 BUN 25 H Creatinine 1.3 Estimated GFR/1.73 m2 53.67 Glucose 123 H Calcium 9.9 Magnesium 2.0 Total Bilirubin 0.6 AST 36 ALT 56 Alkaline Phosphatase 83 Troponin I < 50 NT-Pro-B Natriuret Pep 996 H Total Protein 8.1 Albumin 3.4 TSH Free T4 COVID-19 Source SARS-CoV-2 (PCR) Influenza Type A (PCR) Influenza Type B (PCR) RSV (PCR) 01/26/22 01/26/22 01/26/22 10:30 13:30 13:30 WBC RBC Hgb Hct MCV MCH MCHC RDW Plt Count MPV Immature Gran % Neutrophils % Lymphocytes % Monocytes % Eosinophils % Basophils % Nucleated RBC % Absolute Neutrophils Absolute Lymphocytes Absolute Monocytes Absolute Eosinophils Absolute Basophils PT INR Sodium Potassium Chloride Carbon Dioxide Anion Gap BUN Creatinine Estimated GFR/1.73 m2 Glucose Calcium Magnesium Total Bilirubin AST ALT Alkaline Phosphatase Troponin I 128 H* NT-Pro-B Natriuret Pep Total Protein Albumin TSH < 0.01 L Free T4 7.21 H COVID- Source Not Applicable SARS-CoV-2 (PCR) Positive A Influenza Type A (PCR) Negative Influenza Type B (PCR) Negative RSV (PCR) Negative 01/26/22 01/26/22 01/27/22 18:25 18:25 07:10 WBC RBC Hgb Hct MCV MCH MCHC RDW Plt Count MPV Immature Gran % Neutrophils % Lymphocytes % Monocytes % Eosinophils % Basophils % Nucleated RBC % Absolute Neutrophils Absolute Lymphocytes Absolute Monocytes Absolute Eosinophils Absolute Basophils PT INR Sodium 134 L 135 L Potassium 3.8 4.1 Chloride 100 102 Carbon Dioxide 21.4 24.9 Anion Gap 12.6 H 8.1 BUN 28 H 29 H Creatinine 1.5 H 1.3 Estimated GFR/1.73 m2 45.50 53.67 Glucose 106 105 Calcium 9.3 9.2 Magnesium 1.9 Total Bilirubin AST ALT Alkaline Phosphatase Troponin I 108 H* 74 H* NT-Pro-B Natriuret Pep Total Protein Albumin TSH Free T4 COVID-19 Source SARS-CoV-2 (PCR) Influenza Type A (PCR) Influenza Type B (PCR) RSV (PCR)
[2022-01-27] MEDS: Amiodarone 200 MG TAB PO (09:47)
--- NOTE | 2022-01-27 10:17 | NUR.NOTE ---
RN facilitates patient speaking with his telephonically. Nursing Note:
--- NOTE | 2022-01-27 10:21 | W.PM.DS.N ---
Date of service: 01/27/22 Time of Service: 10:31 DS: Diagnosis Discharge Diagnosis (1) Tachyarrhythmia: Status: Acute (2) Elevated troponin: Status: Acute (3) COPD (chronic obstructive pulmonary disease): Status: Chronic Discharge Plan Disposition Patient Disposition: HOME Condition: Improving Discharge Details Reason For Visit: Paroxysmal afib, COPD exacerbation, CHF Admit Date/Time: 01/26/22 12:59 Admit Provider: Clay Ramirez Attending Provider: Clay Ramirez [facility] Course: He has an appt already scheduled with Dr Pablo in early January. F/U with PCP in 1-2 weeks. Home Meds and New Rx's Prescriptions: New amiodarone [Pacerone] 200 mg Tablet 200 mg PO BID Qty: 60 0RF Continued furosemide [Lasix] 20 mg tablet 20 mg PO Q OTHER DAY Qty: 90 6RF Eliquis 5 mg tablet 5 mg PO BID Qty: 180 3RF lisinopril 5 mg tablet 5 mg PO DAILY Qty: 90 3RF nitroglycerin 0.4 mg tablet, sublingual 0.4 mg sublingual Q5M PRN Rx Instructions: do not exceed 3 doses per episode metoprolol succinate 25 mg tablet extended release 24 hr 25 mg PO HS aspirin 81 mg Tablet 81 mg PO DAILY cholecalciferol (vitamin D3) [Vitamin D3] 50 mcg (2,000 unit) Tablet 2,000 unit PO DAILY Rx Instructions: 1 every other day Discharge Instructions Activity:: Activity as Tolerated Equipment/Supplies:: No Equipment Needed Diet:: Resume usual home diet Discharge Orders Discharge Orders: Discharge Order (Routine); Ordered 01/27/22 Ordered By: Clay Ramirez DS: Summary Time Spent with Patient providing and/or coordinating discharge services: Greater than 30 minutes Status at Discharge Functional status at discharge: independent ambulation Overall status at discharge: patient is back to baseline Mental Status: mental status grossly normal Speech and Movement: speech and movement normal Mood: congruent mood Affect: normal affect Exam Narrative Exam Narrative: Lying in bed. Pleasant and conversant. Const General: cooperative, comfortable, no acute distress, not anxious and not diaphoretic Orientation: alert and oriented x3 Resp Effort & Inspection: normal respiratory effort and able to speak in complete sentences Auscultation: clear to auscultation bilaterally Cardio Jugular venous pressure: no JVD Rate: regular rate Rhythm: regular rhythm Heart Sounds: S1 normal and S2 normal Neuro General: patient alert and no focal motor deficits Extrem General: no pedal edema and no calf tenderness Psych Appearance: grossly normal Mental Status: mental status grossly normal Speech and Movement: speech and movement normal Mood: congruent mood Affect: normal affect DS: Data Vitals/I&O Vitals and I&O: Vital Signs Temperature 36.9 C 01/27/22 09:00 Temperature Source Temporal Artery Scan 01/27/22 09:00 Pulse 73 01/27/22 09:00 Pulse Rhythm Regular 01/26/22 20:30 Pulse 65 01/27/22 06:20 Respiratory Rate 26 H 01/27/22 09:00 Respiratory Effort 01/27/22 04:00 Respiratory Depth Normal 01/27/22 09:00 Respiratory Pattern Normal 01/27/22 09:00 Blood Pressure 110/47 L 01/27/22 09:00 Blood Pressure Mean 68 01/27/22 09:00 Blood Pressure Position Supine 01/27/22 09:00 Pulse Oximetry 91 L 01/27/22 09:00 Oxygen Delivery Method Nasal Cannula 01/27/22 09:00 Oxygen Flow Rate 2 01/27/22 09:00 Pain Level 0 01/27/22 09:00 Comment 01/26/22 20:46 Intake & Output 01/26/22 01/26/22 01/27/22 11:59 23:59 11:59 Intake Total 260 / 600 340 / 600 627.500 / 627.500 Output Total 1700 / 1700 500 / 500 Balance 260 / -1100 -1360 / -1100 127.500 / 127.500 Weight 68.3 kg 61.5 kg Intake: IV 260 / 360 100 / 360 387.500 / 387.500 Oral 240 / 240 240 / 240 Output: Urine 1700 / 1700 500 / 500 Other: Urine Color Yellow Urine Appearance Clear Clear Urine Odor None Comment Urinal used in bathroom. Patient voiding sufficient amounts of urine. Stool Size Moderate Stool Characteristics Formed Voiding Methods Urinal # Voids 1 Data Completed and Pending Labs on day of discharge: Labs from last 24 hours 01/27/22 01/26/22 01/26/22 07:10 18:25 18:25 WBC RBC Hgb Hct MCV MCH MCHC RDW Plt Count MPV Immature Gran % Neutrophils % Lymphocytes % Monocytes % Eosinophils % Basophils % Nucleated RBC % Absolute Neutrophils Absolute Lymphocytes Absolute Monocytes Absolute Eosinophils Absolute Basophils PT INR Sodium 135 L 134 L Potassium 4.1 3.8 Chloride 102 100 Carbon Dioxide 24.9 21.4 Anion Gap 8.1 12.6 H BUN 29 H 28 H Creatinine 1.3 1.5 H Estimated GFR/1.73 m2 53.67 45.50 Glucose 105 106 Calcium 9.2 9.3 Magnesium 1.9 Total Bilirubin AST ALT Alkaline Phosphatase Troponin I 74 H* 108 H* NT-Pro-B Natriuret Pep Total Protein Albumin TSH Free T4 COVID-19 Source SARS-CoV-2 (PCR) Influenza Type A (PCR) Influenza Type B (PCR) RSV (PCR) 01/26/22 01/26/22 01/26/22 13:30 13:30 10:30 WBC RBC Hgb Hct MCV MCH MCHC RDW Plt Count MPV Immature Gran % Neutrophils % Lymphocytes % Monocytes % Eosinophils % Basophils % Nucleated RBC % Absolute Neutrophils Absolute Lymphocytes Absolute Monocytes Absolute Eosinophils Absolute Basophils PT INR Sodium Potassium Chloride Carbon Dioxide Anion Gap BUN Creatinine Estimated GFR/1.73 m2 Glucose Calcium Magnesium Total Bilirubin AST ALT Alkaline Phosphatase Troponin I 128 H* NT-Pro-B Natriuret Pep Total Protein Albumin TSH < 0.01 L Free T4 7.21 H COVID-19 Source Not Applicable SARS-CoV-2 (PCR) Positive A Influenza Type A (PCR) Negative Influenza Type B (PCR) Negative RSV (PCR) Negative 01/26/22 01/26/22 01/26/22 10:00 10:00 10:00 WBC 6.25 RBC 4.98 Hgb 14.2 Hct 43.9 MCV 88 MCH 28.5 MCHC 32.3 RDW Plt Count 120 L MPV 13.2 H Immature Gran % 0.3 Neutrophils % 56.8 Lymphocytes % 23.2 Monocytes % 16.0 Eosinophils % 2.9 Basophils % 0.8 Nucleated RBC % 0.0 Absolute Neutrophils 3.55 Absolute Lymphocytes 1.45 Absolute Monocytes 1.00 H Absolute Eosinophils 0.18 Absolute Basophils 0.05 PT 12.0 H INR 1.2 H Sodium 135 L Potassium 3.9 Chloride 101 Carbon Dioxide 24.7 Anion Gap 9.3 BUN 25 H Creatinine 1.3 Estimated GFR/1.73 m2 53.67 Glucose 123 H Calcium 9.9 Magnesium 2.0 Total Bilirubin 0.6 AST 36 ALT 56 Alkaline Phosphatase 83 Troponin I < 50 NT-Pro-B Natriuret Pep 996 H Total Protein 8.1 Albumin 3.4 TSH Free T4 COVID-19 Source SARS-CoV-2 (PCR) Influenza Type A (PCR) Influenza Type B (PCR) RSV (PCR) PFSH All Active Problems Tachyarrhythmia (Acute) Elevated troponin (Acute) COVID-19 (Acute) CHF (congestive heart failure) (Chronic) Diverticulosis large intestine w/o perforation or abscess w/bleeding (Acute) severe Frequent stools (Acute) Diarrhea (Acute) STEMI (ST elevation myocardial infarction) (Acute) 10/2019 Hyperlipidemia (Acute) Hemorrhage secondary to anti-coagulation (Acute) Pulmonary embolism (Chronic) COPD (chronic obstructive pulmonary disease) (Chronic) Atrial fib/flutter, transient (Chronic) Rectal hemorrhage (Acute) Prediabetes (Acute) Occult blood positive stool (Acute) Chronic kidney disease (Chronic) Anxiety (Chronic) Coronary artery disease (Chronic) CVA (cerebral vascular accident) (Acute) Hemorrhoids, external (Acute) Peripheral artery disease (Acute) Decreased diffusion capacity of lung (Acute) Positive colorectal cancer screening using Cologuard test (Acute) Back pain (Acute) Medical History Achilles tendonitis Familial hyperlipidemia Former smoker Heart attack 11/29/2019 mini stroke w/ heart attack per pt.HE History of amputation of finger RIF Myocardial abscess Right inguinal hernia Surgical History History of colonoscopy with polypectomy (~08/26/21) 08/26/21 Stoiber, incomplete, severe diverticular disease, Status post cardiac catheterization 11/18 w/x3 MACARIO in RCA Social History Smoking/Tobacco Use Status: Former Tobacco Use Quit Date: 11/29/19 Smoking risk assessment performed?: Yes Alcohol Intake: former Drug use: Never Substance use type: does not use Do you feel safe at home: Yes Do you feel safe in your relationship?: Yes
--- NOTE | 2022-01-27 11:36 | NUR.NOTE ---
RN provides education about taking Amiodarone. Next 200mg dose will be this evening at 21:00. Patient to orange picker his prescription at [facility] in [place].Nursing Note:
--- NOTE | 2022-01-27 11:37 | NUR.NOTE ---
Patient begins to dress himself in anticipation of his 's arrival in 20 minutes or so.Nursing Note:
--- NOTE | 2022-01-27 12:12 | NUR.NOTE ---
RN wheels patient in wheelchair to front entrance of hospital where his was waiting for him. Patient stable on his feet and thankful for the care received. Patient verbalizes understanding of when to take his new Amiodarone prescription.Nursing Note:
--- NOTE | 2022-01-27 12:37 | PDOC.CMDIS ---
- If Service Date Differs Date of service: 01/27/22 Time of Service: 12:37 LACE Index Scoring Tool - Questions: Length of Stay (in days): 1 Acuity (Admit via E.D.?): Yes Comorbidities: Previous M.I., Chronic Pulmonary Disease E.D. Visits: 1 - Answers: Total Score: 8 Risk of Readmission: Low Risk Care Management Discharge Reason for Hospitalization: Acute CHF Discharge Plan: Jovany will discharge home with no additional services. He will follow up with cardiology; Dr. Pablo as scheduled, as well as his PCP and plan of care. He will transport via private vehicle with his . Patient/Family Education Needs: Review discharge instructions, discuss Ask Me Three.
== END 2022-01-27 12:12 | disposition home or self-care (01) | DRG 309 ==
LOC: ER 12:57 → MS 13:40 → ICU 21:39
PROVIDERS: Nurse Practitioner Acute Care; Admitting Provider Family Medicine; Emergency Provider Emergency Medicine; PCP Family Medicine; Visit Provider Family Medicine
DX: I48.0 Paroxysmal atrial fibrillation (principal); I24.8 Other forms of acute ischemic heart disease; J44.1 Chronic obstructive pulmonary disease with (acute) exacerbation; I50.9 Heart failure, unspecified; I48.92 Unspecified atrial flutter; N18.9 Chronic kidney disease, unspecified; K57.30 Diverticulosis of large intestine without perforation or abscess without bleeding; R73.03 Prediabetes; F41.9 Anxiety disorder, unspecified; I73.9 Peripheral vascular disease, unspecified; K64.4 Residual hemorrhoidal skin tags; I25.10 Atherosclerotic heart disease of native coronary artery without angina pectoris; E78.49 Other hyperlipidemia; Z87.891 Personal history of nicotine dependence; Z86.73 Personal history of transient ischemic attack (TIA), and cerebral infarction without residual deficits; I25.2 Old myocardial infarction; Z86.711 Personal history of pulmonary embolism; Z95.5 Presence of coronary angioplasty implant and graft; Z79.01 Long term (current) use of anticoagulants
CPT/HCPCS: 36415; 80048; 80053; 87637; 93005; 93306; 94640; 96361; 96374; 99222; 99284; 99285; 71045; 83735; 83880; 84439; 84443; 84484; 85025; 85610; 93010; 94667; 99239; J1941; J3480; J3490

== ENCOUNTER 2022-02-15 15:08 | Outpatient (REF) | payer MEDICARE, OTHER, SELFPAY ==
[2022-02-15 14:23] LABS: FREE T4 4.19 ng/dL (0.76-1.46)
[2022-02-15 14:26] LABS: TSH < 0.01 uIU/mL (0.36-3.74)
[2022-02-15 21:57] LABS: T3,Free 9.3 pg/mL (2.8-5.3)
== END 2022-02-15 15:09 | disposition home or self-care (01) ==
LOC: NCHCN 15:08
PROVIDERS: PCP Family Medicine; Visit Provider Family Medicine
DX: E05.90 Thyrotoxicosis, unspecified without thyrotoxic crisis or storm (principal)
CPT/HCPCS: 84439; 84443; 84481

== ENCOUNTER 2022-02-28 11:00 | Outpatient (RCR) | payer SELFPAY ==
[2022-01-30 00:02] VITALS: BP 108/62; PULSE 83
[2022-02-02 11:37] VITALS: BP 104/57; PULSE 57
[2022-02-09 10:56] VITALS: BP 90/52; PULSE 66; O2SAT 92
[2022-02-14 11:02] VITALS: BP 116/71; PULSE 69; O2SAT 90
[2022-02-16 11:09] VITALS: BP 117/68; PULSE 63; O2SAT 92
[2022-02-21 10:58] VITALS: BP 142/84; PULSE 63; O2SAT 90
[2022-02-23 10:59] VITALS: BP 109/57; PULSE 52; O2SAT 94
[2022-02-28 10:58] VITALS: BP 106/69; PULSE 52
== END 2022-03-01 23:59 | disposition home or self-care (01) ==
LOC: CR 11:00
PROVIDERS: PCP Family Medicine; Visit Provider Internal Medicine Cardiovascular Disease
DX: R69 Illness, unspecified (principal)

== ENCOUNTER → 2022-03-10 14:56 | Outpatient (CLI) | payer MEDICARE, OTHER, SELFPAY ==
--- NOTE | 2022-03-10 | DI.US_ITS ---
Exam(s) US THYROID EXAM: US THYROID CLINICAL HISTORY: HYPERTHYROIDISM, E05.90. TECHNIQUE: Ultrasound thyroid performed using standard protocol. COMPARISON: No exams were available for comparison FINDINGS: ISTHMUS: 1.9 mm RIGHT LOBE: Size: 4.3 x 1.7 x 1.5 cm Echogenicity: Normal. Vascularity: Normal. Nodules: None. LEFT LOBE: Size: 3.4 x 1.6 x 0.9 cm Echogenicity: Normal. Vascularity: Normal. Nodules: There is a 0.9 x 0.6 x 0.7 cm mixed cystic and solid hypoechoic nodule in the midpole of the left lobe. No echogenic foci are seen. There are smooth margins. The findings are consistent with a TI rads level 3 nodule. Based on its size no follow-up is recommended. OTHER FINDINGS: None. IMPRESSION: No suspicious thyroid nodules. DATA REPOSITORY:
== END ==
PROVIDERS: PCP Family Medicine; Visit Provider Family Medicine
DX: E05.90 Thyrotoxicosis, unspecified without thyrotoxic crisis or storm (principal)
CPT/HCPCS: 76536

== ENCOUNTER 2022-03-24 15:05 | Outpatient (REF) | payer MEDICARE, OTHER, SELFPAY ==
--- OUTSIDE RECORDS SUMMARY | 2022-03-24 15:07 | XMS_ITS | Continuity of Care Document ---
:1945 Author Organization [facility] Care Team Providers Name Role Phone [facility] Unavailable Unavailable Problems Combined list of problems [...] Diagnosis: ICD-10-CM Active Diagnosis [place] Z79.01 half-way [place] [facility] (current) use of anticoagulantswith Provider Comments: Long-term current use of anticoagulant (SCT [id number]) Diagnosis: ICD-10-CM Active Diagnosis ST. Z23 Encounter for [place] immunizationwith CBO C Provider Comments: Encounter for Immunization Diagnosis: ICD-10-CM Active Diagnosis ST. H90.3 Sensorineural [facility] hearing loss, CBOC bilateralwith Provider Comments: Asymmetrical sensorineural hearing loss (SNOMED CT [id number]) Diagnosis: ICD-10-CM Active Diagnosis ST. I25.10 Athscl heart [facility] disease of crow CB OC coronary artery w/o ang pctrswith Provider Comments: Atherosclerotic Heart Disease of [place] Coronary Artery without Angina Pectoris Medications Combined list of outpatient medications from Department of Defense and Veterans Affairs facilities. Medications provided include 1) outpatient medications from the last 15 months, and 2) patient-reported medications. Medication Details Route Status Patient Prescription Prescription Last Ordering Order Source Instructions Expires Number Dispense Provider Date Date AMIODARONE TAKE ONE ORAL ACTIVE 02/14/2023 [id number] JORGE A LOZA HCL TABLET 2 N 2021 [place] (PACERONE) BY MOUTH [place] 200MG TAB EVERY [facility] DAY AFTER ONE MONTH OF TWICE DAILY DOSING THROUGH 02/26/22 APIXABAN TAKE ONE ORAL ACTIVE 2023 [id number] WILLIE LOZA 01/20/ Departm 5MG TAB TABLET 2 N 2021 ent of BY MOUTH TWICE A s DAY TO Affairs HELP PREVENT BLOOD CLOTS (ANTICOA GULATION CCNRX) APIXABAN TAKE ONE ORAL 12/21/2021 [id number] GIANGR ECO 12/30/ WHITE 5MG TAB TABLET 2 ,MILTON Will 2020 [place] BY MOUTH [place] EVERY [facility] TWELVE HOURS TO HELP PREVENT BLOOD CLOTS (ANTICOA GULATION ) ASPIRIN TAKE ONE ORAL ACTIVE GIANGRECO 12/20/ WHI TE 81MG TAB,EC TABLET ,MILTON Will 2020 ANNALEE ER BY MOUTH [place] EVERY [facility] DAY CHOLECALCIF TAKE ONE ORAL ACTIVE IRASEMA,P 04/22/ ST. DARIO 25MCG TABLET KARYY A 2014 [place] (1,000UNIT) BY MOUTH RY CB OC TAB EVERY OTHER DAY FUROSEMIDE TAKE ONE ORAL ACTIVE 12/17/2022 [id number] JORGE A LOZA 12/21/ Departm 20MG TAB TABLET 2 N 2021 ent of BY MOUTH EVERY s OTHER Affairs DAY TO REMOVE FLUID/CO NTROL BLOOD PRESSURE FUROSEMIDE TAKE ONE ORAL 11/12/2021 [id number] SJ PATTONM 11/12/ ST. 20MG TAB TABLET 2 ICHAEL 2020 [place] BY MOUTH RY CBOC EVERY OTHER DAY TO REMOVE FLUID/CO NTROL BLOOD PRESSURE LISINOPRIL TAKE ONE ORAL ACTIVE 12/17/2022 [id number] JORGE A LOZA 12/21/ Departm 5MG TAB TABLET 2 N 2021 ent of BY MOUTH [place] EVERY s DAY TO Affairs CONTROL BLOOD PRESSURE LISINOPRIL TAKE ONE ORAL DISCONT 06/08/2022 [id number] JORGE A LOZA 06/15/ WHITE 5MG TAB TABLET INUED 2 N 2020 [place] BY MOUTH [place] EVERY [facility] DAY TO CONTROL BLOOD PRESSURE LISINOPRIL TAKE ONE ORAL 06/03/2021 [id number] SJ PATTON,M 06/08/ ST. 5MG TAB TABLET 1 ICHAEL 2019 [place] BY MOUTH RY CBOC EVERY DAY TO CONTROL BLOOD PRESSURE METOPROLOL TAKE ONE ORAL ACTIVE 02/14/2023 [id number] JORGE A LOZA 02/15/ WHITE SUCCINATE TABLET 2 N 2021 [place] 25MG TAB,SA BY MOUTH [place] EVERY [facility] DAY FOR BLOOD PRESSURE /HEART METOPROLOL TAKE ONE ORAL DISCONT 02/23/2022 [id number] SJ PATTONM 02/28/ ST. SUCCINATE TABLET INUED 2 ICHAEL 2020 [place] 25MG TAB,SA BY MOUTH RY CB OC EVERY DAY FOR BLOOD PRESSURE /HEART NITROGLYCER TAKE ONE SUBLIN 02/23/2022 [id number] Mery LR 02/28/ ST. 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 2020 ed [...] result by 1.210 Tests performed on [employer] (405) SN:[id number] [place] eGFR E] IN SERUM Ordering Pr ovider: [facility] [facility] PANEL OR PLASMA Report Releas ed Date/Time: Feb 24, 2021 11:18 AM Reporting Lab: [place] [facility] [address] [place] [facility] [place] [place] [address] Performing Lab: [facility] [place] [facility] [address] [facility] [address] CREATININ GLOMERULAR 44 60 04/28 L Specimen Ty pe: PLASMA WHITE E WITH FILTRATION /2020 Comment: For eGFR: Race unknown, if multiply result by 1.210 Tests performed on [employer] (405) SN:[id number] [place] eGFR RATE/1.73 Ordering Prov ider: [place] [facility] PANEL SQ Report Released Date/Time: Feb 24, 2021 11:18 AM M.PREDICTED Reporting L ab: [facility] [place] [facility] [VOLUME [address] [place] [facility] [place] [place] [address] RATE/AREA] Performing L ab: [place] [facility] IN SERUM OR [address] [facility] [address] PLASMA BY CREATININE- BASED FORMULA (MDRD) CBC NO LEUKOCYTES 5.8 4.5 - 11.0 04/28 Specimen T ype: BLOOD WHITE DIFF [#/VOLUME] /2020 No comment en tered. [place] IN BLOOD BY Ordering Pr ovider: [place] [facility] AUTOMATED Report Releas ed Date/Time: Feb 24, 2021 11:18 AM COUNT Reporting Lab: [facility] [address] [place] [facility] [place] [place] [address] Performing Lab: [facility] [place] [facility] [address] [facility] [address] CBC NO ERYTHROCYTE 4.61 4.23 - 04/28 Specimen Typ e: BLOOD WHITE DIFF S 5.66 /2020 No comment enter ed. [place] [#/VOLUME] Ordering Pro vider: [place] [facility] IN BLOOD BY Report Rele ased Date/Time: Feb 24, 2021 11:18 AM AUTOMATED Reporting Lab : [facility] [facility] COUNT [address] [place] [facility] [place] [address] Performing Lab: [facility] [place] [place] [facility] [address] [place] [facility] [place] [address] CBC NO HEMOGLOBIN 13.9 12.8 - 17 04/28 Specimen Ty pe: BLOOD WHITE DIFF [MASS/VOLUM /2020 No comment e ntered. [place] E] IN BLOOD Ordering Pr ovider: MIL[place] UREÑAOC Report Released Date/Time: Feb 24, 2021 11:18 AM Reporting Lab: [facility] [place] [address] [place] [facility] [place] [address] Performing Lab: [facility] [address] [place] [facility] [place] [place] [address] CBC NO HEMATOCRIT 43.6 39.2 - 04/28 Specimen Type : BLOOD WHITE DIFF [VOLUME 50.4 No comment enter ed. [place] FRACTION] Ordering Prov ider: [place] [facility] OF BLOOD BY Report Rele ased Date/Time: Feb 24, 2021 11:18 AM AUTOMATED Reporting Lab : [facility] [place] [facility] COUNT [address] [place] [facility] [place] [address] Performing Lab: [facility] [place] [facility] [address] [place] [facility] [place] [address] CBC NO MCV 94.6 82 - 99 04/28 Specimen Type: B LOOD WHITE DIFF [ENTITIC /2020 No comment ente red. [place] VOLUME] BY Ordering Pro vider: MILTON UREÑAOC AUTOMATED Report Releas ed Date/Time: Feb 24, 2021 11:18 AM COUNT Reporting Lab: [facility] [address] [place] [facility] [place] [address] Performing Lab: [facility] [place] [place] [facility] [address] [place] [facility] [place] [address] CBC NO MCH 30.2 26.2 - 04/28 Specimen Type: B LOOD WHITE DIFF [ENTITIC 32.6 /2020 No comment ente red. [place] MASS] BY Ordering Provi adrian: [place] UREÑAOC AUTOMATED Report Releas ed Date/Time: Feb 24, 2021 11:18 AM COUNT Reporting Lab: [facility] [place] [facility] [address] [place] [facility] [place] [place] [address] Performing Lab: [facility] [facility] [address] [place] [facility] [place] [place] [place] [address] CBC NO MCHC 31.9 30.8 - 04/28 Specimen Type: B LOOD WHITE DIFF [MASS/VOLUM 35.1 /2020 No comment e ntered. [place] E] BY Ordering Provid er: MILTON UREÑA AUTOMATED Report Releas ed Date/Time: Feb 24, 2021 11:18 AM COUNT Reporting Lab: [facility] [place] [address] [place] [facility] [place] [place] [address] Performing Lab: [facility] [place] [facility] [address] [place] [facility] [place] [place] [place] [address] CBC NO PLATELETS 141 140 - 360 04/28 Specimen Typ e: BLOOD WHITE DIFF [#/VOLUME] /2020 No comment en tered. [place] IN BLOOD BY Ordering Pr ovider: [place] [facility] AUTOMATED Report Releas ed Date/Time: Feb 24, 2021 11:18 AM COUNT Reporting Lab: [facility] [place] [facility] [address] [place] [facility] [place] [place] [address] Performing Lab: [facility] [place] [facility] [address] [place] [facility] [place] [place] [place] [address] CBC NO PLATELET 12.1 9.2 - 12.4 04/28 Specimen Typ e: BLOOD WHITE DIFF MEAN VOLUME /2020 No comment e ntered. [place] [ENTITIC Ordering Provi adrian: MILTON UREÑAOC VOLUME] IN Report Relea sed Date/Time: Feb 24, 2021 11:18 AM BLOOD BY Reporting Lab: [facility] [place] [facility] AUTOMATED [address] [place] [facility] [place] [place] [address] COUNT Performing Lab: [facility] [place] [facility] [address] [place] [facility] [place] [place] [place] [address] CBC NO ERYTHROCYTE 15.0 12.0 - 04/28 Specimen Typ e: BLOOD WHITE DIFF DISTRIBUTIO 16.0 No comment e ntered. [place] N WIDTH Ordering Provid er: MILTON UREÑAOC [RATIO] BY Report Relea sed Date/Time: Feb 24, 2021 11:18 AM AUTOMATED Reporting Lab : [facility] [place] [facility] COUNT [address] [facility] [place] [place] [address] Performing Lab: [facility] [place] [facility] [address] [place] [facility] [place] [place] [address] CREATININ CREATININE 1.37 0.5 - 1.5 02/22 Specimen Type: PLASMA WHITE E WITH [MASS/VOLUM /2020 Comment: Fo r eGFR: Race unknown, if multiply result by 1.210 Tests performed on [employer] (405) SN:[id number] [place] eGFR E] IN SERUM Ordering Pr ovider: MIL[place] URE[facility] PANEL OR PLASMA Report Releas ed Date/Time: Dec 20, 2020 02:24 PM Reporting Lab: [facility] [address] [place] [facility] [place] [place] [address] Performing Lab: [facility] [place] [facility] [address] [place] [facility] [place] [place] [address] CREATININ GLOMERULAR 51 60 02/22 L Specimen Ty pe: PLASMA WHITE E WITH FILTRATION /2020 Comment: For eGFR: Race unknown, if multiply result by 1.210 Tests performed on [employer] (405) SN:[id number] [place] eGFR RATE/1.73 Ordering Prov ider: MIL[place] UREÑ[facility] PANEL SQ Report Released Date/Time: Dec 20, 2020 02:24 PM M.PREDICTED Reporting L ab: [facility] [place] [facility] [VOLUME [address] [facility] [place] [place] [address] RATE/AREA] Performing L ab: [facility] [facility] IN SERUM OR [address] [place] [facility] [place] [place] [address] PLASMA BY CREATININE- BASED FORMULA (MDRD) CBC NO LEUKOCYTES 6.8 4.5 - 11.0 02/22 Specimen T ype: BLOOD WHITE DIFF [#/VOLUME] /2020 No comment en tered. [place] IN BLOOD BY Ordering Pr ovider: [place] UREÑ[facility] AUTOMATED Report Releas ed Date/Time: Dec 20, 2020 02:24 PM COUNT Reporting Lab: [facility] [address] [place] [facility] [place] [place] [address] Performing Lab: [facility] [facility] [address] [place] [facility] [place] [place] [place] [address] CBC NO ERYTHROCYTE 5.03 4.23 - 08 Specimen Typ e: BLOOD WHITE DIFF S 5.66 /2020 No comment enter ed. [place] [#/VOLUME] Ordering Pro vider: MIL[place] U[facility] IN BLOOD BY Report Rele ased Date/Time: Dec 20, 2020 02:24 PM AUTOMATED Reporting Lab : [facility] [place] [facility] COUNT [address] [facility] [address] Performing Lab: [facility] [place] [facility] [address] [facility] [address] CBC NO HEMOGLOBIN 14.9 12.8 - 17 02/22 Specimen Ty pe: BLOOD WHITE DIFF [MASS/VOLUM /2020 No comment e ntered. [place] E] IN BLOOD Ordering Pr ovider: MILTON UREÑA Report Released Date/Time: Dec 20, 2020 02:24 PM Reporting Lab: [facility] [address] [place] [facility] [place] [place] [address] Performing Lab: [facility] [facility] [address] [place] [facility] [place] [place] [place] [address] CBC NO HEMATOCRIT 46.7 39.2 - 02/22 Specimen Type : BLOOD WHITE DIFF [VOLUME 50.4 No comment enter ed. [place] FRACTION] Ordering Prov ider: MIL[place] UREÑAOC OF BLOOD BY Report Rele ased Date/Time: Dec 20, 2020 02:24 PM AUTOMATED Reporting Lab : [facility] [place] [place] [facility] COUNT [address] [place] [facility] [place] [place] [address] Performing Lab: [facility] [address] [place] [facility] [place] [place] [address] CBC NO MCV 92.8 82 - 99 02/22 Specimen Type: B LOOD WHITE DIFF [ENTITIC /2020 No comment ente red. [place] VOLUME] BY Ordering Pro vider: MILTON UREÑAOC AUTOMATED Report Rele ed Date/Time: Dec 20, 2020 02:24 PM COUNT Reporting Lab: [facility] [address] [facility] [address] Performing Lab: [facility] [place] [facility] [address] [facility] [address] CBC NO MCH 29.6 26.2 - 08 Specimen Type: B LOOD WHITE DIFF [ENTITIC 32.6 /2020 No comment ente red. [place] MASS] BY Ordering Provi adrian: MILTON UREÑA AUTOMATED Report Releas ed Date/Time: Dec 20, 2020 02:24 PM COUNT Reporting Lab: [facility] [address] [facility] [address] Performing Lab: [facility] [place] [address] [facility] [address] CBC NO MCHC 31.9 30.8 - 08 Specimen Type: B LOOD WHITE DIFF [MASS/VOLUM 35.1 /2020 No comment e ntered. [place] E] BY Ordering Provid er: MILTON UREÑA AUTOMATED Report Releas ed Date/Time: Dec 20, 2020 02:24 PM COUNT Reporting Lab: [facility] [address] [facility] [address] Performing Lab: [facility] [place] [facility] [address] [facility] [address] CBC NO PLATELETS 159 140 - 360 08 Specimen Typ e: BLOOD WHITE DIFF [#/VOLUME] /2020 No comment en tered. [place] IN BLOOD BY Ordering Pr ovider: MILTON UREÑA AUTOMATED Report Releas ed Date/Time: Dec 20, 2020 02:24 PM COUNT Reporting Lab: [facility] [address] [facility] [address] Performing Lab: [facility] [place] [address] [facility] [address] CBC NO PLATELET 13.0 9.2 - 12.4 08/24 H Specimen Typ e: BLOOD WHITE DIFF MEAN VOLUME /2020 No comment e ntered. [place] [ENTITIC Ordering Provi adrian: MILTON UREÑA VOLUME] IN Report Relea sed Date/Time: Dec 20, 2020 02:24 PM BLOOD BY Reporting Lab: [facility] [address] [facility] [address] COUNT Performing Lab: [facility] [address] [facility] [address] CBC NO ERYTHROCYTE 14.6 12.0 - 08/24 Specimen Typ e: BLOOD WHITE DIFF DISTRIBUTIO 16.0 /2020 No comment e ntered. [place] N WIDTH Ordering Provid er: [facility] [RATIO] BY Report Relea sed Date/Time: Dec 20, 2020 02:24 PM AUTOMATED Reporting Lab : [facility] COUNT [address] [facility] [address] Performing Lab: [facility] [address] [facility] [address] P4 UREA 20 7 - 25 08/24 Specimen Type: P LASMA ST. GLU,BUN,C NITROGEN /2020 Comment: For eGFR: Race unknown, if multiply result by 1.210 Tests performed on [employer] (405) SN:[id number] IVORY BECKETT [MASS/VOLUM Ordering Provider: GRETCHEN PEREZ CA E] IN SERUM Report Rele ased Date/Time: Feb 22, 2021 10:13 AM OR PLASMA Reporting Lab : [facility] [address] [facility] [address] Performing Lab: [facility] [address] [facility] [address] P4 SODIUM 133 135 - 145 08/24 L Specimen Type: PLASMA ST. GLU,BUN,C [MOLES/VOLU /2020 Comment: For eGFR: Race unknown, if multiply result by 1.210 Tests performed on [employer] (405) SN:[id number] IVORY BECKETT ME] IN Ordering Prov ider: GRETCHEN PEREZ CA SERUM OR Report Release d Date/Time: Feb 22, 2021 10:13 AM PLASMA Reporting Lab: [facility] [address] [facility] [address] Performing Lab: [facility] [address] [facility] [address] P4 POTASSIUM 4.5 3.5 - 5.0 02/22 Specimen Typ e: PLASMA ST. GLU,BUN,C [MOLES/VOLU /2020 Comment: For eGFR: Race unknown, if multiply result by 1.210 Tests performed on [employer] (405) SN:[id number] IVORY BECKETT IA] IN Ordering Prov ider: GRETCHEN PEREZ [place] SERUM OR Report Release d Date/Time: Feb 22, 2021 10:13 AM PLASMA Reporting Lab: [facility] [address] [place] [facility] [place] [address] Performing Lab: [facility] [address] [place] [facility] [place] [address] P4 CHLORIDE 102 100 - 110 02/22 Specimen Type : PLASMA ST. GLU,BUN,C [MOLES/VOLU /2020 Comment: For eGFR: Race unknown, if multiply result by 1.210 Tests performed on [employer] (405) SN:[id number] IVORY BECKETT IA] IN Ordering Prov ider: GRETCHEN PEREZ CA SERUM OR Report Release d Date/Time: Feb 22, 2021 10:13 AM PLASMA Reporting Lab: [facility] [address] [place] [facility] [place] [address] Performing Lab: [facility] [facility] [address] [place] [facility] [place] [place] [address] P4 CARBON 21 20 - 30 02/22 Specimen Type: P LASMA ST. GLU,BUN,C DIOXIDE, /2020 Comment: For eGFR: Race unknown, if multiply result by 1.210 Tests performed on [employer] (405) SN:[id number] IVORY BECKETT [facility] Ordering Prov ider: GRETCHEN PEREZ S,CA [MOLES/VOLU Report Rele ased Date/Time: Feb 22, 2021 10:13 AM IA] IN Reporting Lab: [place] [facility] SERUM OR [address] [facility] [place] [address] PLASMA Performing Lab: [facility] [facility] [address] [place] [facility] [place] [place] [address] P4 ANION GAP 10 4 - 16 02/22 Specimen Type: PLASMA ST. GLU,BUN,C IN SERUM OR /2020 Comment: For eGFR: Race unknown, if multiply result by 1.210 Tests performed on [employer] (405) SN:[id number] BLAIR BECKETTTE PLASMA Ordering Prov ider: GRETCHEN PEREZ CA Report Released Date/Time: Feb 22, 2021 10:13 AM Reporting Lab: [facility] [address] [facility] [address] Performing Lab: [facility] [address] [facility] [address] P4 GLUCOSE 106 65 - 100 08/24 H Specimen Type: PLASMA ST. GLU,BUN,C [MASS/VOLUM /2020 Comment: For eGFR: Race unknown, if multiply result by 1.210 Tests performed on [employer] (405) SN:[id number] MARCELA NYELYTE E] IN SERUM Ordering Provider: GRETCHEN PEREZ CA OR PLASMA Report Releas ed Date/Time: Feb 22, 2021 10:13 AM Reporting Lab: [facility] [address] [facility] [address] Performing Lab: [facility] [address] [facility] [address] P4 CREATININE 1.37 0.5 - 1.5 02/22 Specimen Ty pe: PLASMA ST. GLU,BUN,C [MASS/VOLUM /2020 Comment: For eGFR: Race unknown, if multiply result by 1.210 Tests performed on [employer] (405) SN:[id number] BLAIR BECKETTTE E] IN SERUM Ordering Provider: GRETCHEN PEREZ CA OR PLASMA Report Releas ed Date/Time: Feb 22, 2021 10:13 AM Reporting Lab: [facility] [address] [facility] [address] Performing Lab: [facility] [address] [facility] [address] P4 CALCIUM 9.6 8.5 - 10.5 02/22 Specimen Type : PLASMA ST. GLU,BUN,C [MASS/VOLUM /2020 Comment: For eGFR: Race unknown, if multiply result by 1.210 Tests performed on [employer] (405) SN:[id number] MARCELA NYELYTE E] IN SERUM Ordering Provider: ANA,GRETCHEN CBOC S,CA OR PLASMA Report Releas ed Date/Time: Feb 22, 2021 10:13 AM Reporting Lab: [facility] [address] [facility] [address] Performing Lab: [facility] [place] [facility] [address] [facility] [address] P4 GLOMERULAR 51 60 02/22 L Specimen Type : PLASMA ST. GLU,BUN,C FILTRATION /2020 Comment: F or eGFR: Race unknown, if multiply result by 1.210 Tests performed on [employer] (405) SN:[id number] MARCELA REIVORY MILLER RATE/1.73 Ordering Pr ovider: GRETCHEN PEREZ S,CA SQ Report Released Date/Time: Feb 22, 2021 10:13 AM M.PREDICTED Reporting L ab: [facility] [VOLUME [address] [facility] [address] RATE/AREA] Performing L ab: [facility] IN SERUM OR [address] [facility] [address] PLASMA BY CREATININE- BASED FORMULA (MDRD) LIVER PROTEIN 8.0 6.0 - 8.5 02/22 Specimen Type: PLASMA ST. PROFILE [MASS/VOLUM /2020 Comment: Fo r eGFR: Race unknown, if multiply result by 1.210 Tests performed on [employer] (405) SN:[id number] [facility] E] IN SERUM Ordering Pr ovider: GRETCHEN PEREZ CBOC OR PLASMA Report Releas ed Date/Time: Feb 22, 2021 10:13 AM Reporting Lab: [facility] [address] [place] [facility] [place] [place] [address] Performing Lab: [facility] [address] [facility] [address] LIVER ALBUMIN 4.0 3.2 - 5.0 02/22 Specimen Type: PLASMA ST. PROFILE [MASS/VOLUM /2020 Comment: Fo r eGFR: Race unknown, if multiply result by 1.210 Tests performed on [employer] (405) SN:[id number] [facility] E] IN SERUM Ordering Pr ovider: GRETCHEN PEREZ CBOC OR PLASMA Report Releas ed Date/Time: Feb 22, 2021 10:13 AM Reporting Lab: [facility] [address] [facility] [address] Performing Lab: [facility] [address] [place] [facility] [place] [address] LIVER BILIRUBIN.T 0.6 0.2 - 1.2 02/22 Specimen T ype: PLASMA ST. PROFILE OTAL /2020 Comment: For eG FR: Race unknown, if multiply result by 1.210 Tests performed on [employer] (405) SN:[id number] [facility] [MASS/VOLUM Ordering Pr ovider: GRETCHEN PEREZ E] IN SERUM Report Rele ased Date/Time: Feb 22, 2021 10:13 AM OR PLASMA Reporting Lab : [facility] [address] [facility] [address] Performing Lab: [facility] [address] [facility] [address] LIVER ALKALINE 75 40 - 150 02/22 Specimen Type: PLASMA ST. PROFILE PHOSPHATASE Comment: Fo r eGFR: Race unknown, if multiply result by 1.210 Tests performed on [employer] (405) SN:[id number] [facility] [ENZYMATIC Ordering Pro vider: GRETCHEN PEREZ ACTIVITY/VO Report Rele ased Date/Time: Feb 22, 2021 10:13 AM LUME] IN Reporting Lab: [facility] SER[facility] OR [address] [place] [facility] [place] [place] [address] PLASMA Performing Lab: [facility] [address] [place] [facility] [place] [place] [address] LIVER ALANINE 16 7 - 52 02/22 Specimen Type: P LASMA ST. PROFILE AMINOTRANSF Comment: Fo r eGFR: Race unknown, if multiply result by 1.210 Tests performed on [employer] (405) SN:[id number] [facility] ERASE Ordering Provid er: GRETCHEN PEREZ [ENZYMATIC Report Relea sed Date/Time: Feb 22, 2021 10:13 AM ACTIVITY/VO Reporting L ab: [facility] LUME] IN [address] [facility] [place] [address] SERUM OR Performing Lab : [facility] [address] [place] [facility] [place] [place] [address] LIVER ASPARTATE 17 5 - 34 02/22 Specimen Type: PLASMA ST. PROFILE AMINOTRANSF Comment: Fo r eGFR: Race unknown, if multiply result by 1.210 Tests performed on [employer] (405) SN:[id number] [facility] ERASE Ordering Provid er: GRETCHEN PEREZ [ENZYMATIC Report Relea sed Date/Time: Feb 22, 2021 10:13 AM ACTIVITY/VO Reporting L [facility]: [facility] IN [address] [facility] [address] SERUM OR Performing Lab : [facility] PLASMA [address] [place] [facility] [place] [place] [address] LIPOPROTE CHOLESTEROL 361 0 - 199 08/24 H Specimen T ype: PLASMA ST. IN [MASS/VOLUM /2020 Comment: Fo r eGFR: Race unknown, if multiply result by 1.210 Tests performed on [employer] (405) SN:[id number] [facility] CHOLESTER E] IN SERUM Ordering Provider: GRETCHEN PEREZ OL FRACT. OR PLASMA Report Rele ased Date/Time: Feb 22, 2021 10:13 AM PANEL Reporting [facility]: [facility] [address] [facility] [address] Performing [facility]: [facility] [address] [place] [facility] [place] [place] [address] LIPOPROTE TRIGLYCERID 170 0 - 149 08/24 H Specimen T ype: PLASMA ST. IN E Comment: For eG FR: Race unknown, if multiply result by 1.210 Tests performed on [employer] (405) SN:[id number] [facility] CHOLESTER [MASS/VOLUM Ordering Provider: GRETCHEN PEREZ OL FRACT. E] IN SERUM Report Re leased Date/Time: Feb 22, 2021 10:13 AM PANEL OR PLASMA Reporting Lab : [facility] [address] [facility] [address] Performing Lab: [facility] [address] [facility] [address] LIPOPROTE CHOLESTEROL 46 40 08/24 Specimen T ype: PLASMA ST. IN IN HDL /2020 Comment: For eG FR: Race unknown, if multiply result by 1.210 Tests performed on [employer] (405) SN:[id number] [facility] CHOLESTER [MASS/VOLUM Ordering Provider: GRETCHEN PEREZ OL FRACT. E] IN SERUM Report Re leased Date/Time: Feb 22, 2021 10:13 AM PANEL OR PLASMA Reporting Lab : [facility] [address] [facility] [address] Performing Lab: [facility] [address] [facility] [address] LIPOPROTE CHOLESTEROL 281 0 - 129 08/24 H Specimen T ype: PLASMA ST. IN IN LDL /2020 Comment: For eG FR: Race unknown, if multiply result by 1.210 Tests performed on [employer] (405) SN:[id number] [facility] CHOLESTER [MASS/VOLUM Ordering Provider: GRETCHEN PEREZ OL FRACT. E] IN SERUM Report Re leased Date/Time: Feb 22, 2021 10:13 AM PANEL OR PLASMA Reporting Lab : [facility] BY [address] [facility] [address] CALCULATION Performing Lab: [facility] [address] [facility] [address] VITAMIN COBALAMIN 312 200 - 900 08/24 Specimen Typ e: SERUM ST. B-12 (VITAMIN /2020 Comment: Tests performed on [employer] (405) SN:[id number] MARCELA B12) Ordering Provid er: GRETCHEN PEREZ [MASS/VOLUM Report Rele ased Date/Time: Feb 22, 2021 10:13 AM E] IN SERUM Reporting L ab: [facility] OR PLASMA [address] [facility] [address] Performing Lab: [facility] [address] [facility] [address] GLYCOHEMO HEMOGLOBIN 6.2 4.0 - 5.6 08/24 H Specimen Type: BLOOD ST. GLOBIN A1C/HEMOGLO /2020 Comment: Te sts performed on [employer] (405) SN:[id number] MARCELA (A1C BIN.TOTAL Ordering Prov ider: GRETCHEN PEREZ ONLY) IN BLOOD BY Report Rele ased Date/Time: Feb 22, 2021 10:13 AM HPLC Reporting Lab: [facility] [address] [facility] [address] Performing Lab: [facility] [address] [facility] [address] VIT D CALCIFEROL 40.8 20 - 50 08/24 Specimen Type : SERUM ST. 25-OH(WRJ (VIT D2) /2020 Comment: Kirsten ts performed on [employer] (405) SN:[id number] MARCELA ) [MASS/VOLUM Ordering Pr ovider: GRETCHEN PEREZ E] IN SERUM Report Rele ased Date/Time: Feb 22, 2021 10:13 AM OR PLASMA Reporting Lab : [facility] [address] [facility] [address] Performing Lab: [facility] [address] [facility] [address] Encounters Combined list of: 1) Encounters from Department of Veterans Affairs facilities going back up to the last 18 months. 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 Location Location Encounter Encounter Reason Attending ADM DC Stat us Disposition Source Details Type Number For Provider Date Date Visit Outpatient 49912-9.40 09/30 [facility] Encounter [id number] /[facility] 64150-5.40 10/19 [facility] Encounter [id number] /2020 [facility] 52022-7.40 11/11 [facility] Encounter [id number] /2020 [facility] [place] 82502-9.40 11/11 [facility] Encounter [id number] /2020 [facility] 49069-4.40 11/11 [facility] Encounter [id number] /2020 [facility] [place] 90202-4.40 12/13 [facility] Encounter [id number] /2020 [facility] 26059-1.40 Diagnos ADELITA, 12/20 W JIMBO PHONE CALL [id number] is: MILTON B /2020 R IVER 11-20 MIN ICD-10- JCT CM [facility] 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
Provide r Comment s: Long-te rm current use of anticoa gulant (SCT 4979424 03) Outpatient 78513-7.40 02/22 WH[facility] E Encounter [id number] [facility] OFFICE O/P 17318-7.40 Diagnos SÁNCHEZ PEREZ 02/22 ST. 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
Provide r Comment s: Long-te rm current use of anticoa gulant (SCT 4777139 03) Outpatient 03/02 WH[facility] E Encounter [id number] /2021 [facility] COMPREHENS 15687-4.40 Diagnos RADHA, 04/12 ST. ELA [id number] is: HLEY A [facility] HEARING 39 ICD-10- RY CBOC TEST CM H90.3 Sensori neural hearing loss, bilater al
with Provide r Comment s: Asymmet rical sensori neural hearing loss (SNOMED CT 3767949 09) Outpatient 04/15 WH[facility] E Encounter [id number] /2021 [facility] OFFICE O/P 82067-7.40 Diagnos PETTIGLIO, 04/28 ST. EST [id number] is: SAMMY A JOHNSB U MINIMAL 02 ICD-10- RY CBOC PROB CM Z23 Encount er for immuniz ation<b r/>with Provide r Comment s: Encount er for Immuniz ation HC PRO 75909-5.40 Diagnos NICOLA LEONE 04/29 W JIMBO PHONE CALL [id number] is: AN RIVE R 11-20 MIN ICD-10- [facility] CM [facility] Z79.01 half-way (curren t) use of anticoa gulants
wi th Provide r Comment s: Long-te rm current use of anticoa gulant ([facility] [id number] 03) Outpatient 58726-9.40 07/04 WHIT E Encounter [id number] /2022 LOW [facility] Social History Combined list of available smoking, tobacco, and other social history [facility]. 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 An actual copy of the Directive is not included. Date Advance Directive Provider Source 01/15/2019 ADVANCE DIRECTIVE DISCUSSION STEPHANIE HERNANDEZ [facility]
--- OUTSIDE RECORDS SUMMARY | 2022-03-24 15:08 | XMS_ITS | Encounter Summary ---
:1945 Author Organization [facility] [place] [address] Care Team Providers Name Role Phone Jovany Lott MD Primary Care Provider Encounter Details Date Type Department Care Team Description 11/10/2020 Telephone Cardiology at [facility] [place] [facility] [place] [address] Social History Tobacco Use Types Packs/Day [...] on filedocumented in this encounter Care Teams Tappet Adjuster Relationship Specialty Start Date End Date Jovany Lott MD PCP - General Family Medicine 02/05/20 [place] [id number] documented as of this encounter
--- OUTSIDE RECORDS SUMMARY | 2022-03-24 15:08 | XMS_ITS | Encounter Summary ---
:1945 Author Organization [facility] Address [address] [place] [address] Care Team Providers Name Role Phone Jovany Lott MD Primary Care Provider Encounter Details Date Type Department Care Team Description 03/10/2022 Ancillary Procedure Radiology Library at Jovany Lott MD [facility] [address] [facility] [address] [place] [address] [phone] Social History Tobacco Use Types Packs/Day Years [...] Organization Address City/State/ZIP Code Phon e Number [place], [place] documented in this encounter Visit Diagnoses Not on filedocumented in this encounter Care Teams Welfare Eligibility Worker Relationship Specialty Start Date End Date Jovany Lott MD PCP - General Family Medicine 02/05/20 [address] [place] [address] documented as of this encounter
--- OUTSIDE RECORDS SUMMARY | 2022-03-24 15:08 | XMS_ITS | Encounter Summary ---
:1945 Author Organization [facility] Address [address] [place] [address] Care Team Providers Name Role Phone Unavailable Primary Care Provider Unavailable Encounter Details Date Type Department Care Team Description 09/02/2003 Results Only [facility] Otis Patel MD conversion [address] [facility] [address] [place] [address] [place] [address] (Wo rk) Social History Tobacco Use Types [...] ANGEL LUIS SALINAS ? Accession #: ? [id number] ? : ? 1945 (Age: 58) ??M [...] of the lesion is recommended. ?? (Dr. Mascorro)/[facility]) Microscopic Description: ? The epidermis is hype [...] and cords of similar melanocytes that show college tutor maturation with descent. ??There is papillary dermal fibroplasia. ??(Dr. Mascorro)/[facility]) Document reviewed and electronically signed by: Mai [...] entirely submitted in one cassette. ??(Dr Stephany Amador)/[facility] End of Report Specimen Performing Organization Address City/State/ZIP Code Phon e Number [facility] [address] [place] [address] SERVICES [facility] [address] [place] [address] documented in this encounter Visit Diagnoses Not on filedocumented in this encounter
--- OUTSIDE RECORDS SUMMARY | 2022-03-24 15:08 | XMS_ITS | Encounter Summary ---
:1945 Author Organization [facility] [place] [address] Care Team Providers Name Role Phone France Lam MD Primary Care Provider Reason for Visit Reason Onset Date Comments TeleHealth 12/22/2019 Appt 12/23/19 Encounter Details Date Type Department Care Team Description 12/22/2019 Telephone Neurosurgery at [facility] [place] Alfreda Salas TeleHealth (Appt [facility] Devin Sebastian, SECURE SOFTWARE ASSESSOR 12/23/19) [place] [address] [place] [address] [place] [address] Social History Tobacco Use Types Packs/Day [...] on filedocumented in this encounter Care Teams Karate Black Belt Relationship Specialty Start Date End Date France Lam MD PCP - General 05/02/13 02/04/20 [address] [place] [address] documented as of this encounter
--- OUTSIDE RECORDS SUMMARY | 2022-03-24 15:08 | XMS_ITS | Encounter Summary ---
:1945 Author Organization [facility] [place] [place] [address] Care Team Providers Name Role Phone France Lam MD Primary Care Provider Encounter Details Date Type Department Care Team Description 12/08/2019 Telephone Neurosurgery at [facility] Sarah Boucher [facility] [place] [address] Social History Tobacco Use Types Packs/Day Years Used Date Current Every Day Smoker Cigars 0.5 Sex Assigned at Date Recorded Not on file documented as of this encounter Miscellaneous Notes Telephone Encounter - Elza Bradshaw - 12/22/2019 6:[address] in eDH Telephone Encounter - Elza Bradshaw - 12/18/2019 3:43 PM EDT Left message at [facility] requesting they call back to advise if patient has been scheduled for CT. Telephone Encounter - Sarah Boucher - 12/08/2019 3:[address] order to [facility] to schedule, 12/16-12/18 for 12/22 TOV scheduled w/BCB Telephone Encounter - Sarah Boucher - 12/08/2019 9:50 AM EDT RN, please put in CT order external=[place] Pt's called not able to come to [facility] on 12/[address] to have CT locally at [facility] call w/results. documented in this encounter Plan of Treatment Not on filedocumented as of this encounter Visit Diagnoses Not on filedocumented in this encounter Care Teams Gas Regulator Repairer Relationship Specialty Start Date End Date France Lam MD PCP - General 05/02/13 02/04/20 [address] [place] [address] documented as of this encounter
--- OUTSIDE RECORDS SUMMARY | 2022-03-24 15:08 | XMS_ITS | Clinical Summary ---
:1945 Author Organization [facility] Address [address] [place] [address] Care Team Providers Name Role Phone Jennifer Gomez Bunny TOOLMAKER Primary Care Provider Encounters Date Type Specialty [...] 9.3 (H) 2.8 - 5.3 pg/mL [facility] Specimen Blood - Venous blood (substance) Performing Organization Address City/State/ZIP Code Phon e Number [facility] [address] [place] [address] SERVICES FECAL BACTERIAL PATHOGENS BY PCR (01/24/2022 14:50 EDT) Pathologist Sig nature Salmonella PCR Negative Negative [facility] Shigella/Enteroinvasive Negative Negative [facility]. coli [facility]ORY SERVICES HN LAB CAMPYLOBACTER PCR Negative Negative [facility] ER LABORATORY SERVICES Shiga Toxin PCR Negative Negative [facility] Specimen Feces - Specimen from rectum (specimen) Performing Organization Address City/State/ZIP Code Phon e Number [facility] [address] [place] [address] SERVICES from Last 3 Months Insurance Payer Benefit Plan Subscriber ID Effective Phone Address Typ e / Group Dates [employer]UAL OF [employer] OF [id number] 2018-Prese [id number] [place] [place] [address] MEDICARE MEDICARE A/B [id number] 2011-Pres [address] Medicare GL ent [id number] [place] [address] (Work) Jovany Hi Personal/Family Self [address] (Home) [place] [address] (Work) Jovany Hi Personal/Family Self [address] (Home) [place] [address] (Work) Care Teams Health Sciences Dean Relationship Specialty Start Date End Date Jennifer Gomez, TOOLMAKER PCP - General 05/10/15 [facility] [address] [place], [place] [id number]
--- OUTSIDE RECORDS SUMMARY | 2022-03-24 15:08 | XMS_ITS | Encounter Summary ---
:1945 Author Organization [facility] Address [facility] [place] [address] Care Team Providers Name Role Phone Jovany Lott MD Primary Care Provider Encounter Details Date Type Department Care Team Description 08/31/2020 TH Visit Cardiology at [facility] Faustino Garduno Atrial fibrillation, unspeci fied type (Primary Dx); (TeleHealth) [facility] MD Jaquan Acute ST elevation myocardial infarction (STEMI) of inferior wall; [facility] Acute systolic CHF (congesti ve heart failure), NYHA class 3, MILVIA/AHA stage C; [place], [place] Center Hyperlipidemia, unspecified hyperlipidem ia type; [address] [place], [place] Intracranial hemorrhage; [phone] [address] PFO (patent foramen ovale); [phone] Claudication fr om peripheral vascular disease, left [...] with ICH, bilateral PE; paroxysmal atrial fibrillation [[id number]: 5]; PAD; HLD; HTN; smoking and PFO,who [...] appointment with Dr. Faustino Chou at the [facility]. However, he has not grossly noted that [...] a non-culprit artery. S/P DESx3 in the vkhgfzhj-ty-sjztst RCA. Aspiration thrombectomy performed, and integrellin bolus [...] with ICH, bilateral PE; paroxysmal atrial fibrillation [[id number]: 5]; PAD; HLD; HTN; smoking and PFO, [...] Will also discuss further with his local mysql dba, Dr. Mejia. 3. Bilateral PE - Case discussed with Dr. Sanchez above; likely provoked in lieu of his prolonged hospitalization. He has completed at least 6 months of oral A/C (coinciding treatment for his afib). 4. PAD - Continue optimal medical therapy for now. Will place referral for SET/walking program. F/U 3 months Faustino Garduno MD Time spent: 35 minutes Addendum 09/13/20: Called [phone] or [phone] and was able to speak to Dr. Faustino Chou. Pt also sees Dr. Lott in [facility] for local primary care needs. Dr. Chou [...] unspecified documented in this encounter Care Teams Surveying Technician Relationship Specialty Start Date End Date Jovany Lott MD PCP - General Family Medicine 02/05/20 [place] [address] documented as of this encounter
--- OUTSIDE RECORDS SUMMARY | 2022-03-24 15:08 | XMS_ITS | Encounter Summary ---
:1945 Author Organization [facility] [place] [address] Care Team Providers Name Role Phone France Lam MD Primary Care Provider Encounter Details Date Type Department Care Team Description 01/09/2020 TH Visit Neurology at [facility] Efrain Nicole, Intracranial hemorrhage; (TeleHealth) [facility] ESTEFANY Tobacco abuse; [facility] Cerebrovascular accident (CV A) due to embolism of right posterior cerebral artery [facility] [address] NEUROLOGY [phone] [place] [address] Social History Tobacco Use Types Packs/Day Years Used Date Current Every Day Smoker Cigars 0.5 Sex Assigned at Date Recorded Not on file documented as of this encounter Progress Notes Efrain Nicole PA - 01/09/2020 9:00 AM EDT Cerebrovascular Disease and Stroke Program [place] [address] t: [phone] / f: [phone] TELEPHONE ENCOUNTER Date of Appointment: 01/09/2020 I [...] cardiology - had f/u head CT at [facility] which was stable with resolving known hemorrhage - has not resumed smoking -has been in touch with Dr. Sanchez for Watchman, deferred for duration of anticoagulation for PE Modified Penn Laird Scale (MRS) 0: No symptoms at all [...] -advised vision/eye exam with his local provider ([facility]); consider referral to neuro-ophthalmology here in [...] artery documented in this encounter Care Teams Check Out Cashier Relationship Specialty Start Date End Date France Lam MD PCP - General 05/02/13 02/04/20 [address] [place] [address] documented as of this encounter
--- OUTSIDE RECORDS SUMMARY | 2022-03-24 15:08 | XMS_ITS | Encounter Summary ---
:1945 Author Organization [facility] Address [address] [place] [address] Care Team Providers Name Role Phone Unavailable Primary Care Provider Unavailable Encounter Details Date Type Department Care Team Description 09/15/2003 Results Only [facility] - Otis Patel MD conversion [address] [facility] [address] [place] [address] [place] [address] (Wo rk) Social History Tobacco Use Types [...] ANGEL LUIS SALINAS ? Accession #: ? [id number] ? : ? 1945 (Age: 58) ??M ? Collect Date: ? 09/15/2003 ? Location: ? [facility] ? Receive Date: ? 004 ? Provider: OTIS MOSS MD Copy to: MALCOM MCGEE MUSHROOM FARMER ? Final Pathologic Diagnosis: ? Skin of [...] Number [facility] [address] [place] [address] SERVICES [facility] [address] [place] [address] documented in this encounter Visit Diagnoses Not on filedocumented in this encounter
--- OUTSIDE RECORDS SUMMARY | 2022-03-24 15:08 | XMS_ITS | Encounter Summary ---
:1945 Author Organization [facility] Address [address] [place] [address] Care Team Providers Name Role Phone Jennifer Gomez BELLMAN DRIVER Primary Care Provider Encounter Details Date Type Department Care Team Description 02/07/2020 Lab Requisition [facility] Outr Resulting Lab, Pathology & Laboratory Provider [facility] [address] [place] [address] Social History Tobacco Use Types [...] (02/07/2020 7:59 EDT) COVID-19 rt-PCR NEGATIVE Negative [facility] Result Comment: LABORATORY 2019-novel Coronavirus [...] City/State/ZIP Code Phon e Number [facility] [place] LABORATORY [place], [place] COVID-19 TESTING (02/07/2020 7:59 EDT) COVID-19 rt-PCR NEGATIVE Negative [facility] Result Comment: LABORATORY 2019-novel Coronavirus [...] Administration's Emergency Use Authorization. Performing Lab [facility] LABORATORY SERVICES Specimen Swab Performing Organization Address City/State/ZIP Code Phon e Number [facility] [address] [place] [address] SERVICES [facility] [place], [place] documented in this encounter Visit Diagnoses Not on filedocumented in this encounter Care Teams Medical Donation Professional Relationship Specialty Start Date End Date Jennifer Gomez NP PCP - General 05/10/15 [facility] [address] [place], [place] [address] documented as of this encounter
--- OUTSIDE RECORDS SUMMARY | 2022-03-24 15:08 | XMS_ITS | Encounter Summary ---
:1945 Author Organization [place] [place] [address] Care Team Providers Name Role Phone Jovany Lott MD Primary Care Provider Encounter Details Date Type Department Care Team Description 10/05/2020 Notes Only Cardiology Merlin Sanchez MD [facility] [place] [address] CARDIOLOGY DEPT. [phone] [place], [place] [address] (Wo rk) Social History Tobacco [...] BEKAH-C with [facility] Merlin Sanchez MD [facility] Pager 2020 documented in this encounter Plan of Treatment Not on filedocumented as of this encounter Visit Diagnoses Not on filedocumented in this encounter Care Teams Alto Singer Relationship Specialty Start Date End Date Jovany Lott MD PCP - General Family Medicine 8/6/20 [address] [place] [address] documented as of this encounter
--- OUTSIDE RECORDS SUMMARY | 2022-03-24 15:08 | XMS_ITS | Encounter Summary ---
:1945 Author Organization [facility] Address [address] [place] [address] Care Team Providers Name Role Phone Jennifer Gomez JUNIOR ACCOUNTING CLERK Primary Care Provider Encounter Details Date Type Department Care Team Description 03/19/2019 Hospital Encounter [facility] Unknown, Provider, [facility] 0 [facility] [phone] [place] [address] (Work) [phone] Social History Tobacco Use Types Packs/Day Years Used Date Never Assessed Sex Assigned at Date Recorded Not on file documented as of this encounter Discharge Disposition Disposition Code Departure Means Destination Home or Self Residential documented in this encounter Plan of Treatment Not on filedocumented as of this encounter Visit Diagnoses Not on filedocumented in this encounter Care Teams Cytogenetic Technician Relationship Specialty Start Date End Date Jennifer Gomez, JUNIOR ACCOUNTING CLERK PCP - General 05/10/15 [facility] [address] [place], [place] [address] documented as of this encounter
--- OUTSIDE RECORDS SUMMARY | 2022-03-24 15:08 | XMS_ITS | Encounter Summary ---
:1945 Author Organization [facility] [place] [address] Care Team Providers Name Role Phone France Lam MD Primary Care Provider Encounter Details Date Type Department Care Team Description 12/24/2019 Telephone Neurosurgery at [facility] Cathy Jay [facility] [place] [address] Social History Tobacco Use Types Packs/Day [...] CT on 12/28. Faxed push request to [facility] Telephone Encounter - Elza Bradshaw - 12/25/2019 11:50 AM EDT Called [place] [facility] community service representative I spoke with patient has plan N and does not require authorization. Order faxed with demos to [facility]. Postponing to allow time for scheduling. Telephone Encounter - Cathy Jay - 12/24/2019 11:42 AM EDT Patient needs f/u appointment(s): With [facility] on/around 01/13 3 weeks TOV, s/p Intracranial hemorrhage, [facility] prior 1. [place] [facility] [place]? ~~~~~~~~~~~~~~~~~~~~~~~~~~~~~~~~~~~~~~~~~~~~~~~~~~~~~~ Alfreda Salas APRN Sent: Maria Victoria December 23, 2019 ??7:39 PM To: P [facility] Neurosurgery Early Head Start Director Jovany Hi ( ) : 1945> ?? Follow-up and Dispositions Check-out Note: Follow up head CT and TOV in 3 weeks unless vision worsens or he develops new symptoms in meantime ([facility] for CT) documented in this encounter Plan of Treatment Not on filedocumented as of this encounter Visit Diagnoses Not on filedocumented in this encounter Care Teams Theology Teacher Relationship Specialty Start Date End Date France Lam MD PCP - General 05/02/13 02/04/20 [address] [place] [address] documented as of this encounter
--- OUTSIDE RECORDS SUMMARY | 2022-03-24 15:08 | XMS_ITS | Encounter Summary ---
:1945 Author Organization [facility] Address [facility] [place] [address] Care Team Providers Name Role Phone France Lam MD Primary Care Provider Encounter Details Date Type Department Care Team Description 12/18/2019 Ancillary Procedure Radiology Library at Debi Lam [facility] [address] [place] [id number] [place] [phone] Social History Tobacco Use Types Packs/Day Years [...] is for storage only. France Lam MD [facility] FILM LIBRARY ORDERABLES Performing Organization Address City/State/ZIP Code Phon e Number [place], [place] documented in this encounter Visit Diagnoses Not on filedocumented in this encounter Care Teams Intellectual Property Lawyer Relationship Specialty Start Date End Date France Lam MD PCP - General 05/02/13 02/04/20 [address] [place] [address] documented as of this encounter
--- OUTSIDE RECORDS SUMMARY | 2022-03-24 15:08 | XMS_ITS | Encounter Summary ---
:1945 Author Organization [facility] Address [facility] [place] [address] Care Team Providers Name Role Phone France Lam MD Primary Care Provider Encounter Details Date Type Department Care Team Description 12/26/2019 TH Visit Cardiology at [facility] Merlin Sanchez V, Claudication from peripheral vascular disease, left ; (TeleHealth) [facility] Hyperlipidemia, unspecified hyperlipidem ia type; Drive [facility] Acute ST elevation myocardia l infarction (STEMI) of inferior wall; [place], [place] CENTER Acute systolic CHF (congestive heart reid lure), NYHA class 3, MILVIA/AHA stage C [address] [address] [phone] [place] [address] Social History Tobacco Use Types Packs/Day Years [...] plan going forward. Merlin Sanchez M.D., F.A.C.C. leather leveler Pager 2020 >50% of the 15 minute [...] failure documented in this encounter Care Teams Surveillance Camera Technician Relationship Specialty Start Date End Date France Lam MD PCP - General 05/02/13 02/04/20 [address] [place] [address] documented as of this encounter
--- OUTSIDE RECORDS SUMMARY | 2022-03-24 15:08 | XMS_ITS | Encounter Summary ---
:1945 Author Organization [facility] Address [address] [place] [address] Care Team Providers Name Role Phone Jennifer Gomez DEPUTY MANAGER Primary Care Provider Encounter Details Date Type Department Care Team Description 01/25/2022 Lab Requisition [facility] Outr Resulting Lab, Pathology & Laboratory Provider [facility] [address], [place] [address] Social History Tobacco Use Types Packs/Day Years [...] Pathologist Sig nature Salmonella PCR Negative Negative [facility] Shigella/Enteroinvasive Negative Negative [facility] LAB CAMPYLOBACTER PCR Negative Negative [facility] Shiga Toxin PCR Negative Negative [facility] Specimen Feces - Specimen from rectum (specimen) Performing Organization Address City/State/ZIP Code Phon e Number [facility] [address] [place] [address] SERVICES documented in this encounter Visit Diagnoses Not on filedocumented in this encounter Care Teams Quality Supervisor Relationship Specialty Start Date End Date Jennifer Gomez, DEPUTY MANAGER PCP - General 05/10/15 [facility] [address] [place], [place] [id number] documented as of this encounter
--- OUTSIDE RECORDS SUMMARY | 2022-03-24 15:08 | XMS_ITS | Encounter Summary ---
:1945 Author Organization [facility] [place] [address] Care Team Providers Name Role Phone Jovany Lott MD Primary Care Provider Reason for Visit Reason Onset Date Comments Follow-up 06/15/2020 Tobacco Treatment Encounter Details Date Type Department Care Team Description 06/15/2020 Telephone Vascular Surgery at [facility] Tran-melvin (Tobacco [facility] Sukumar, RN Treatment) [place] [address] Social History Tobacco Use Types Packs/Day [...] updated. Ryan Tran, MSN, RN-BC, NCTTP Tobacco Hydroelectric Production Technician [facility] Pager #[phone] documented in this encounter Plan of Treatment Not on filedocumented as of this encounter Visit Diagnoses Not on filedocumented in this encounter Care Teams Sand Carrier Relationship Specialty Start Date End Date Jovany Lott MD PCP - General Family Medicine 02/05/20 [place] [address] documented as of this encounter
--- OUTSIDE RECORDS SUMMARY | 2022-03-24 15:08 | XMS_ITS | Encounter Summary ---
:1945 Author Organization [facility] Address [facility] [place] [address] Care Team Providers Name Role Phone France Lam MD Primary Care Provider Reason for Visit Reason Onset Date Comments TeleHealth 01/08/2020 Appt 01/09/20 Encounter Details Date Type Department Care Team Description 01/08/2020 Telephone Neurology at [facility] Efrain Nicole PA TeleHealth (Appt [facility] 12/[address] ) [place] [address] NEUROLOGY [phone] [place], [place] [address] (Wo rk) Social History Tobacco [...] on filedocumented in this encounter Care Teams Audio Recording Engineer Relationship Specialty Start Date End Date France Lam MD PCP - General 05/02/13 02/04/20 [address] [place] [address] documented as of this encounter
--- OUTSIDE RECORDS SUMMARY | 2022-03-24 15:08 | XMS_ITS | Encounter Summary ---
:1945 Author Organization [facility] Address [address] [place] [address] Care Team Providers Name Role Phone Jennifer Gomez ASSISTANT ATTORNEY GENERAL Primary Care Provider Encounter Details Date Type Department Care Team Description 03/19/2019 Results Only [facility] Angel Luis Lott MD [phone] [address] [place], [place] [phone] (Wo rk) Social History Tobacco Use Types [...] (03/19/2019 16:47 EDT) Pathology SURGICAL PATHOLOGY REPORT [facility] Report: Reports generated via electronic interface conta in original data; CENTER LABORATORY however they are lacking the format of the original re port. SERVICES Caution should be taken when reading/interpreting unfo rmatted reports. Name: ? ANGEL LUIS HI ? Accession #: ? [id number] ? : ? 1945 (Age: 7 3) [...] Organization Address City/State/ZIP Code Phon e Number [facility] [address] [place] [address] SERVICES documented in this encounter Visit Diagnoses Not on filedocumented in this encounter Care Teams Chain Puller Relationship Specialty Start Date End Date Jennifer Gomez NP PCP - General 05/10/15 [facility] [address] [place], [place] [id number] documented as of this encounter
--- OUTSIDE RECORDS SUMMARY | 2022-03-24 15:08 | XMS_ITS | Encounter Summary ---
:1945 Author Organization [facility] [place] [address] Care Team Providers Name Role Phone France Lam MD Primary Care Provider Reason for Visit Reason Onset Date Comments TeleHealth 01/12/2020 Encounter Details Date Type Department Care Team Description 01/12/2020 Telephone Neurosurgery at [facility] Alfreda Salas, TeleHealth [facility] Dev[place] [address] [facility] [phone] [place], [place] [address] (Wo rk) Social History Tobacco [...] on filedocumented in this encounter Care Teams Scientific Process Operator Relationship Specialty Start Date End Date France Lam MD PCP - General 05/02/13 02/04/20 [address] [place] [address] documented as of this encounter
--- OUTSIDE RECORDS SUMMARY | 2022-03-24 15:08 | XMS_ITS | Encounter Summary ---
:1945 Author Organization [facility] Address [address] [place] [address] Care Team Providers Name Role Phone Jennifer Gomez DRILL RUNNER Primary Care Provider Encounter Details Date Type Department Care Team Description 08/26/2021 Lab Requisition [facility] Najma Valladares for other Pathology & M, DO general examination Laboratory Medicine - [address] [address] [facility] [address] [place] [phone] Social History Tobacco Use Types Packs/Day Years [...] 8:45 EST) Note to Patient The following [facility] pathology results have CENTER been interpreted by your LABORATORY pathologist and may be SERVICES available to you before your health provider has had the opportunity to review them. Please allow time for your provider to receive these results and explore management options, if applicable. Final Diagnosis A. RECTUM, POLYP, BIOPSY : [facility] - Polypoid submucosal anal glands. CENTER - Overlying rectal mucosa negative for dysplasia. LABORATORY - See comment. SERVICES Diagnosis Comment This rectal polyp shows a cantor bmucosal collection of anal duct glands causing a polypoid configuration. The morphology and the immunohistochemical profile are consistent with a benign (non-neoplastic) pro [facility] cess. Lime Mixer Tender slides of this case were reviewed at the gastrointestinal/liver intradepartmental consultation conference. CENTER LABORATORY ANTIBODY(CLONE)(BLOCK):RESULT SERVICES CK7 (RN7, Leica) (A1): Strongly positive PAX-8 (MRQ-50, Cascade) (A1): Negative NKX3.1 (Rabbit Polyclonal, Biocare) (A1): Negative GATA3 (L50-823, Cascade) (A1): Negative NOTE: One or more of [...] characteristics have been de termined by [facility] and/or by the referring laboratory. [...] laboratory testing. Attestation By the signature below, [facility] Elec tronically the attending physician CENTER sign ed by Odalis, certifies that they have LABORATORY Tami MD edna on 1) personally conducted SERVICES 2021 at 1309 a gross and/or microscopic examination of the described specimen(s), and/or personally interpreted the results of laboratory testing of the described specimen(s), and 2) personally rendered or confirmed the above diagnosis. Clinical History Flex sigmoidoscopy; [facility] diverticulosis, polyp CENTER LABORATORY SERVICES Gross Description A. [facility] Received in formalin mark d with proper patient identification (initials M, J) and rectal polyp is a marr-brown polyp, 0.6 x 0.5 x 0.4 cm. Bisected and entirely submitted in A1. CENTER LABORATORY ESTEFANY NICHOLS(ASCP) 08/26/2021 16:41 SE RVICES Performing Lab [facility] LAB [facility] Scanned Images [facility] SERVICES Specimen Tissue - Specimen from rectum (specimen) Performing Organization Address City/State/ZIP Code Phon e Number [facility] [address] [place] [address] SERVICES documented in this encounter Visit Diagnoses Diagnosis Encounter for other general examination documented in this encounter Care Teams Ms Access Database Developer Relationship Specialty Start Date End Date Jennifer Gomez NP PCP - General 05/10/15 [facility] [address] [place] [address] documented as of this encounter
--- OUTSIDE RECORDS SUMMARY | 2022-03-24 15:10 | XMS_ITS | Encounter Summary ---
:1945 Author Organization [facility] [address] Care Team Providers Name Role Phone France Lam MD Primary Care Provider Reason for Referral Consultation (Routine) - Specialty Diagnoses / Procedures Referred By Contact Refer red To Contact Cardiology Diagnoses Acute ST elevation myocardial infarction (STEMI) of inferior wall Darrell Glasgow MD [facility] [place] [address] Referral ID Status Reason Start Date Expiration Date Visits V isits Requested Authorized [id number] Consult, 12/08/2019 06/05/2020 1 1 Test & Treat Consultation (Routine) - Closed Specialty Diagnoses / Referred By Contact Referred To Contact Procedures Cardiac Rehabilitation Diagnoses ST elevation myocardial infarction involving right coronary artery Gretchen Yoon, Cardiac Rehab, [address] [place] [id number] Fax: Referral ID Status Reason Start Date Expiration Date Visits V isits Requested Authorized [id number] Closed Consult, 12/08/2019 06/05/2020 36 36 Test & Treat Reason for Visit Auth/Cert Specialty Diagnoses / Procedures Referred By Contact Refer red To Contact Diagnoses STEMI (ST elevation myocardial infarction) STEMI Procedures CARDIAC CATHETERIZATION Referral ID Status Reason Start Date Expiration Date Visits Requ ested Visits Authorized [id number] 1 1 Encounter Details Date Type Department Care Team Description 11/29/2019 - Hospital Encounter Cardiac Special YoungBarbra MD [facility] [place] [address] ST elevation myocardial infarction invol ving left main coronary artery; 12/08/2019 Care Unit Paris Lozano MD [facility] [place] [address] ST elevation myocardial infarction invol ving right coronary artery; [facility] Edema of upper extremity; Hospital Intracranial hemorrhage; [facility] Paroxysma l atrial fibrillation; Drive Acute pulmonary embolism, un specified pulmonary embolism type, unspecified whether acute cor pulmonale present; [place], [place] Acute ST elevat ion myocardial infarction (STEMI) of inferior wall [id number] Social History Tobacco Use Types Packs/Day Years [...] Luis Salinas Patient Age: 74 y.o. Language: Salvadorean Race: White Ethnicity: Not nor Admit date: [...] months on: antiplatelet therapy at discretion of tint layer - Repeat TTE in 3 months to reassess LV function - Repeat BMP in 1-2 weeks given recent start lisinopril - Referred to lipid clinic for consideration of PCSK-9 inhibitor given STEMI with intolerance of statins - Started on amiodarone this admission for recurrent rapid atrial flutter with rates ~170, recommendcontinued assessment of necessity of rhythm control strategy with tint layer - Amiodarone monitoring recommendations as below - [...] please contact your inpatient physician through the [facility] Liner Worker . Issues after hours and on [...] took two full strength aspirinand came to [facility] ED. At there was found to [...] and Compazine. He was transferred directly to [facility] via [facility] for further management. Patient had an emergent PCI with 3 MACARIO stents placed to his RCA, with mild disease of LCX (report pending) at [facility]. He was found to be persistently hypotensive requiring Levo up to 10mcg/min. He was transferred to [facility] after the cath procedure. Bedside RHC showed CI 2.12, PAWP 11, PAP 38/15 indicating hypovolemic state. He received 1L bolus of NS with improvement of his blood pressure to 124/61. History of PAD, HLD - had side reactions to statins - so taking niacin and red rye grain. Chronic active smoker with more than 65 pack years. Family history of [place] in father and two uncles. He's takingbaby [...] drip as described above. On arrival at [facility] he was taken for cardiac cath where [...] below. Electronically signed by: Angel Luis [facility] ([phone]), at 11/30/2019 12:[address] Head wo [...] below. Electronically signed by: Angel Luis [facility] ([phone]), at 11/30/2019 5:[address] Angiogram [place] (Exam End: 11/30/2019 4:36 PM) Impression Head CT: Stable hemorrhage in the region of the left optic tract. CTA: Negative exam. No abnormal vasculature in the area of hemorrhage. Thank you for letting us participate in the care of this patient. For questions regarding this report, please contact the number below. Electronically signed by: Angel Luis Barboza MD, [facility] ([phone]), at 11/30/2019 5:04 PM MRI Brain wo [...] Electronically signed by: Angel Luis Barboza MD, [facility] ([phone]), at 12/01/2019 8:02 PM XR Chest One [...] ??? Penicillins Pt doesn't remember reaction ??? Pvdhzbm-Okz-Xkd Reductase Inhibitors Stiff neck, upset stomach, back [...] medications at another hospital and then at [facility] you had a stent placed in a [...] FOR ONE MONTH AND THEN STOP. Your tint layer may tell you to start this medication again after one year. Clopidogrel (Plavix) 75 mg daily - This medication will help prevent clots from forming in your blood, which will help protect the stent that was placed in your heart vessel. TAKE THIS FOR ONE YEAR ANDTHEN DISCUSS WITH YOUR HEAD WOOD GRINDER WHETHER TO STOP. Amiodarone 400mg twice daily [...] follow up: Your primary care provider and tint layer will manage your blood thinner (apixaban). You do not need lab monitoring of this medication. Diet: Please consume a healthy diet low in cholesterol Follow up Appointments: 12/10/2019 at 3:10PM with PCP Angel Luis Lott Future Appointments Date Time Provider Department Center 12/23/2019 1:30 PM Alfreda Salas APRN [address] 12/26/2019 9:40 AM Merlin Sanchez MD [facility] CARD 4A [facility] 12/30/2019 3:40 PM Gretchen Yoon MD [facility] 4A [facility] Future Appointments and Orders Future Appointments and Orders Future Appointments Provider Department Dept Phone 12/23/2019 1:30 PM Alfreda Salas APRN Neurosurgery at [facility] Arrive at: Home [phone] Please do not come in for this visit. Your provider will call you at the number you provided. 12/26/2019 9:40 AM Merlin Sanchez MD Cardiology at [facility] Arrive at: Home [phone] Please do not come in for this visit. Your provider will call you at the number you provided. 12/30/2019 3:40 PM Gretchen Yoon MD Cardiology at [facility] Arrive at: Home [phone] Please do not come in for this visit. Your provider will call you at the number you provided. Future Orders Complete By Expires Referral to Cardiac Rehab [[id number] Custom] As directed Process Instructions: If no progress note charted, please enter Clinical details in comments. Scheduling Instructions: Questions: My question or request is: STEMI. Cardiac rehab at [facility] Referral to [facility] [REF43 Custom] As directed Process Instructions: If no progress note charted, please enter Clinical details in comments. Scheduling Instructions: Questions: My question or request is: patient with inferior stemi with history of statin allergy (rash) - please evaluate for psck9 inhibitor. Referral to Home Health - at DISCHARGE [WYL5913 CPT(R)] As directed Process Instructions: Scheduling Instructions: Comments: DOCUMENTATION FOR VNA SERVICES PATIENT'S LOCATION: [address] [phone] (home) Road Gang Supervisor's Name: Self In discussion with the attending physician, it is certified that this patient is under his/her care and that MD, or an ADMISSION LIAISON, AIR BAG BUFFER, or PA who is working directly with him/her, had a labo-jw-ldco encounter that meets the physician cnnx-di-qbib encounter requirements with this patient on 12/07/2019. [...] for managing ADLs. HOME HEALTH CARE AGENCY: [facility], PHONE: [phone] FAX: [phone] Start of care: 24-48 hours after hospital [...] MD [address] / [place] [address] All A agencies which cover the area of patient's residence have been reviewed, either verbally or in writing, and patient/family have chosen the home health care agency noted. Questions: Agency name and contact information: [facility] Patient location post discharge: Home What services are requested: Registered Nurse Physical Therapy Occupational Therapy Start date: Responsible MD post discharge contact info: PCP Your PCP: France Lam MD [phone] For questions regarding this document or issues relating to this hospitalization on the Cardiology Service, please contact your inpatient physician through the [facility] Liner Worker . Issues after hours and on weekends will be handled by the Mobile Home Park Manager on-call. Patient Instructions: Neurology Your Diagnosis: [...] 1:30 PM Alfreda Salas APRN Neurosurgery at [facility] Arrive at: Home [phone] Please do not come in for this visit. Your provider will call you at the number you provided. 12/26/2019 9:40 AM Merlin Sanchez MD Cardiology at [facility] Arrive at: Home [phone] Please do not come in for this visit. Your provider will call you at the number you provided. 12/30/2019 3:40 PM Gretchen Yoon MD Cardiology at [facility] Arrive at: Home [phone] Please do not come in for this visit. Your provider will call you at the number you provided. Future Orders Complete By Expires Referral to Cardiac Rehab [[id number] Custom] As directed Process Instructions: If no progress note charted, please enter Clinical details in comments. Scheduling Instructions: Questions: My question or request is: STEMI. Cardiac rehab at [facility] Referral to [facility] [REF43 Custom] As directed Process Instructions: If no progress note charted, please enter Clinical details in comments. Scheduling Instructions: Questions: My question or request is: patient with inferior stemi with history of statin allergy (rash) - please evaluate for psck9 inhibitor. Referral to Home Health - at DISCHARGE [[id number] CPT(R)] As directed Process Instructions: Scheduling Instructions: Comments: DOCUMENTATION FOR VNA SERVICES PATIENT'S LOCATION: [address] [phone] (home) Road Gang Supervisor's Name: Self In discussion with the attending physician, it is certified that this patient is under his/her care and that MD, or an ADMISSION LIAISON, AIR BAG BUFFER, or PA who is working directly with him/her, had a irub-kn-rddn encounter that meets the physician vnyg-nu-pofq encounter requirements with this patient on 12/07/2019. [...] for managing ADLs. HOME HEALTH CARE AGENCY: [facility], PHONE: [phone] FAX: [phone] Start of care: 24-48 hours after hospital [...] France Lam MD [address] / [facility] [address] All A agencies which cover the area of patient's residence have been reviewed, either verbally or in writing, and patient/family have chosen the home health care agency noted. Questions: Agency name and contact information: [facility] Patient location post discharge: Home What services are requested: Registered Nurse Physical Therapy Occupational Therapy Start date: Responsible MD post discharge contact info: PCP Discharge References/Attachments Atrial Fibrillation (Salvadorean) Cardiac Rehabilitation (Salvadorean) Heart Failure (Salvadorean) Heart Failure: Limiting Sodium (Salvadorean) Hemorrhagic Stroke: General Info (Salvadorean) Smoking: Stopping (Salvadorean) Stroke Rehabilitation: General Info (Salvadorean) Pulmonary Embolism (Salvadorean) Riki Stevens MD PGY-3, Internal Medicine Cardiology S2, #[id number] Associated attestation - Paris Dodd MD - 12/09/2019 4:44 PM EDT Cardiology Attending Discharge Addendum I was the assigned attending tint layer for this clinical encounter. For the purposes [...] complications include novel onset, paroxysmal atrial fibrillation [USJ4UQ4SQCZ: 5] & L-sided diplopia with potential hemineglect [...] My contact information: Paris Matt MD MPH [place] [phone] (office); Pager #[phone] Email: [email or web address] documented in this encounter Discharge Instructions Patient InstructionsFiRiki de jesus MD - 12/02/2019 9:56 AM EDT Images from the original note were not included. Why you were hospitalized: You had a heart attack. You received clot-busting medications at another hospital and then at [facility] you had a stent placed in a [...] FOR ONE MONTH AND THEN STOP. Your tint layer may tell you to start this medication again after one year. Clopidogrel (Plavix) 75 mg daily - This medication will help prevent clots from forming in your blood, which will help protect the stent that was placed in your heart vessel. TAKE THIS FOR ONE YEAR ANDTHEN DISCUSS WITH YOUR HEAD WOOD GRINDER WHETHER TO STOP. Amiodarone 400mg twice daily [...] follow up: Your primary care provider and tint layer will manage your blood thinner (apixaban). You do not need lab monitoring of this medication. Diet: Please consume a healthy diet low in cholesterol Follow up Appointments: 12/10/2019 at 3:10PM with PCP Angel Luis Lott Future Appointments Date Time Provider Department Center 12/23/2019 1:30 PM Alfreda Salas APRN [facility] [id number] [facility] 12/26/2019 9:40 AM Merlin Sanchez MD [facility] CARD 4A [facility] 12/30/2019 3:40 PM Gretchen Yono MD [facility] CARD 4A [facility] Future Appointments and Orders Future Appointments and Orders Future Appointments Provider Department Dept Phone 12/23/2019 1:30 PM Alfreda Salas APRN Neurosurgery at [facility] Arrive at: Home [phone] Please do not come in for this visit. Your provider will call you at the number you provided. 12/26/2019 9:40 AM Merlin Sanchez MD Cardiology at [facility] Arrive at: Home [phone] Please do not come in for this visit. Your provider will call you at the number you provided. 12/30/2019 3:40 PM Gretchen Yoon MD Cardiology at [facility] Arrive at: Home [phone] Please do not come in for this visit. Your provider will call you at the number you provided. Future Orders Complete By Expires Referral to Cardiac Rehab [[id number] Custom] As directed Process Instructions: If no progress note charted, please enter Clinical details in comments. Scheduling Instructions: Questions: My question or request is: STEMI. Cardiac rehab at [facility] Referral to [facility] [REF43 Custom] As directed Process Instructions: If no progress note charted, please enter Clinical details in comments. Scheduling Instructions: Questions: My question or request is: patient with inferior stemi with history of statin allergy (rash) - please evaluate for psck9 inhibitor. Referral to Home Health - at DISCHARGE [[id number] CPT(R)] As directed Process Instructions: Scheduling Instructions: Comments: DOCUMENTATION FOR VNA SERVICES PATIENT'S LOCATION: [address] [phone] (home) Road Gang Supervisor's Name: Self In discussion with the attending physician, it is certified that this patient is under his/her care and that MD, or an ADMISSION LIAISON, AIR BAG BUFFER, or PA who is working directly with him/her, had a cmtt-gz-desc encounter that meets the physician zofl-df-jleu encounter requirements with this patient on 12/07/2019. [...] for managing ADLs. HOME HEALTH CARE AGENCY: [facility], PHONE: [phone] FAX: [phone] Start of care: 24-48 hours after hospital [...] MD [address] / [place] [address] All A agencies which cover the area of patient's residence have been reviewed, either verbally or in writing, and patient/family have chosen the home health care agency noted. Questions: Agency name and contact information: [facility] Patient location post discharge: Home What services are requested: Registered Nurse Physical Therapy Occupational Therapy Start date: Responsible MD post discharge contact info: PCP Your PCP: France Lam MD [phone] For questions regarding this document or issues relating to this hospitalization on the Cardiology Service, please contact your inpatient physician through the [facility] Liner Worker . Issues after hours and on weekends will be handled by the [place] Home [place] Manager on-call. Patient Instructions: Neurology Your Diagnosis: [...] be sent through Care Everywhere. Atrial Fibrillation (Salvadorean)Cardiac Rehabilitation (Salvadorean)Heart Failure (Salvadorean)Heart Failure: Limiting Sodium (Salvadorean)Hemorrhagic Stroke: General Info (Salvadorean)Smoking: Stopping (Salvadorean)Stroke Rehabilitation: General Info (Salvadorean)Pulmonary Embolism (Salvadorean)documented in this encounter Medications at Time of [...] consulted in the interim. Vikash Rodriguez Pager: [phone] Paris Dodd MD - 12/08/2019 8:57 AM [...] complications include novel onset, paroxysmal atrial fibrillation [[id number]: 5] & L-sided diplopia with potential hemineglect [...] consulted in the interim. Vikash Rodriguez Pager: [phone] Paris Dodd MD - 12/07/2019 9:55 AM [...] complications include novel onset, paroxysmal atrial fibrillation [TFR3OI7RFFZ: 5] & L-sided diplopia with potential hemineglect [...] complications include novel onset, paroxysmal atrial fibrillation [HYK3EW4QDIJ: 5] & L-sided diplopia with potential hemineglect [...] complications include novel onset, paroxysmal atrial fibrillation [ZYB7XQ7WGFB: 5] & L-sided diplopia with potential hemineglect [...] today; additional complications include paroxysmal atrial fibrillation [ZMI3NT5ZAPA: 4] c/b possible cardioembolic stroke, ICH from [...] length from neck/greatest diameter to back wall: BOTSWANAN 91, CAU 13: 19 mm CORTES 1, [...] a non-culprit artery. S/P DESx3 in the fnlofroi-gc-iorrve RCA. Aspiration thrombectomy performed, and integrellin bolus [...] complications include novel onset, paroxysmal atrial fibrillation [LRR0QH8VBVX: 5] & L-sided diplopia with potential hemineglect [...] R occipital cardioembolic stroke #Paroxysmal Afib with MD7XEHOH2Q score of 5 #New segmental bilateral PEs [...] Glasgow MD PGY1, Internal Medicine Cardiology S2, #7459 Associated attestation - Paris Dodd MD - 12/05/2019 2:59 PM EDT I was the assigned attending tint layer for this clinical encounter. For the purposes [...] 12/04/2019 10:36 AM EDT Office of Care Management(OCM)/Vp Project(CM)/Discharge Planning Service: Cardiology S2 team CM Bernie Alexander,RN,BSN,MA,ACM pgr [phone] Reviewed record and in Cardiology Rounds with MD team,CMs, plate setter, NON FERROUS MATERIAL HANDLER. Pt is anticipated ready for d/c later today. Met w pt re d/c plan and he continues to agree with home PT/OT/RN w [place]. His son is bringing his to pick him up together. Discussed Advance Directives and DPOAH- he states he has at home and designated his as primiary; he thought his PCP would have copy. Tel call to PCP who notes no DPOAH on file. Encouraged pt to take his AD to his PCP and to any [facility] appt for each to have on file. [...] complications include novel onset, paroxysmal atrial fibrillation [ASR8OT0HGTK: 4] & L-sided diplopia with potential hemineglect [...] a non-culprit artery. S/P DESx3 in the fvopatwc-zc-dfhhfa RCA. Aspiration thrombectomy performed, and integrellin bolus [...] complications include novel onset, paroxysmal atrial fibrillation [ZDE6VD7OPZU: 5] & L-sided diplopia with potential hemineglect [...] R occipital cardioembolic stroke #Paroxysmal Afib with NN5BLETJ9P score of 5 - No anticoagulation for [...] Glasgow MD PGY1, Internal Medicine Cardiology S2, #7262 I have seen the patient and reviewed [...] in my clinic. Gretchen Yoon MD Pager [phone] Derian Pascual RN - 12/03/2019 9:29 AM [...] Discharge: None Electronically signed: Derian Pascual RN, Vp Project Pgr: [phone] 12/03/2019 9:29 AM Gretchen Yoon [...] complications include novel onset, paroxysmal atrial fibrillation [DSO4ME5TEPC: 4] & L-sided diplopia with potential hemineglect [...] a non-culprit artery. S/P DESx3 in the mgbxlkkf-ag-bxteaq RCA. Aspiration thrombectomy performed, and integrellin bolus [...] complications include novel onset, paroxysmal atrial fibrillation [GGO6AS8MFGA: 5] & L-sided diplopia with potential hemineglect [...] [facility] and follow up with his PCP. Patient voiced strong will to quit smoking now, understood that we have resources available for help. Plan [P]: --Neurologic-- # Concern for Left-Sided Diplopia, r/o Hemineglect # Concern for CVA, last-known well 11/29/19 - MRI showed possible cardioembolic stroke #Afib with JL2QZIDQ7D score of 5 - Stroke Team Consulted; [...] Anticoagulation/Arrhythmia # Novel Onset, Paroxsymal Atrial Fibrillation [BME3ZB9UKBL: 5] - Hold off anticoagulation for at [...] w straight cath prn # Nutrition - [facility] Diet, 2g Na. -- Hematology/Oncology-- # Mild [...] Glasgow MD PGY1, Internal Medicine Cardiology S2, #5017 I have seen the patient and reviewed the resident's above history and I agree with the details as written. The assessment and plan were formulated in discussion with me and I agree with them as documented. Gretchen Yoon MD Pager [phone] Raul Hein RN - 12/03/2019 5:55 AM [...] Negative mcL Appearance UA Clear Clear Spec [place] UA 1.026 1.006 - 1.030 Color UA [...] PGY3 Neurology Resident 12/01/2019 Vascular Neurology Pager [phone] Neurology Attending Attestation I evaluated the patient [...] documented. Deepthi Roman MD Vascular Neurology Standard [facility] Swallow Screen: This screen is to be [...] diet as medical provider deems appropriate. Consider STATISTICAL MODELER consult for full evaluation and diet recommendations. [...] complications include novel onset, paroxysmal atrial fibrillation [HPX4WB4JHQX: 4] & L-sided diplopia with potential hemineglect [...] a non-culprit artery. S/P DESx3 in the wnkudmhp-vp-dmmflr RCA. Aspiration thrombectomy performed, and integrellin bolus [...] complications include novel onset, paroxysmal atrial fibrillation [JDJ8EC7GMWI: 5] & L-sided diplopia with potential hemineglect [...] Anticoagulation/Arrhythmia # Novel Onset, Paroxsymal Atrial Fibrillation [XNH8EK6FQNJ: 5] - Hold off anticoagulation - pending [...] tamsulosin d/t low BP. # Nutrition - [facility] Diet -- Hematology/Oncology-- # Mild Thrombocytopenia, unclear [...] Glasgow MD PGY1, Internal Medicine Cardiology S2, #3637 I have seen the patient and reviewed [...] the ICU team. Gretchen Yoon MD Pager [phone] Natalia Claros APRN - 12/02/2019 8:38 AM [...] - We are signing off. Please page [phone] with any questions or concerns. For questions please call NS pager [phone] Natalia Claros APRN 12/02/2019 8:38 AM Clinical Documentation Improvement: Active Hospital Problems Diagnosis ??? Acute ST elevation myocardial infarction (STEMI) of inferior wall ??? Intracranial hemorrhage ??? Hyperlipidemia ??? Tobacco abuse ??? Claudication from peripheral vascular disease, left Resolved Hospital Problems No resolved problems to display. Tello Hsu, SPECIALTY MOLDER - 12/02/2019 2:06 AM EDT 06/01/20 2010 [...] Scan in afternoon. Upon arrival back in [facility] placed on low flow NC at 4 [...] complications include novel onset, paroxysmal atrial fibrillation [CBD6IP9REFE: 4] & L-sided diplopia with potential hemineglect for which CVA evaluationto be pursued. Active Problems/Subjective: - 11/28: admitted for inferior STEMI, RV failure requiring pressor - got lytics, aspirin and plavix load, heparin gtt, and eptifibatide. 3 MACARIO stents to RCA. Ellerbe cath - low wedge & CVP so [...] a non-culprit artery. S/P DESx3 in the gritofya-vq-sdwmda RCA. Aspiration thrombectomy performed, and integrellin bolus [...] complications include novel onset, paroxysmal atrial fibrillation [[id number]: 4] & L-sided diplopia with potential hemineglect [...] RCA; non-MIRTHA LCx; s/p lytics] # STEMI [LELYA: 187, DILLON: 7, Killip: 4] - Continue: [...] Anticoagulation/Arrhythmia # Novel Onset, Paroxsymal Atrial Fibrillation [[id number]: 4] - Obtain: TTE - Pending CVA [...] tamsulosin d/t low BP. # Nutrition - [facility] Diet -- Hematology/Oncology-- # Mild Thrombocytopenia, unclear [...] MD, PGY1 PGY3, Internal Medicine Cardiology S2, #[id number] I have seen the patient and reviewed [...] down the line. Gretchen Yoon MD Pager [phone] ?? Gretchen Yoon MD Pager [phone] Natalia Claros APRN - 12/01/2019 1:33 AM [...] per primary team For questions please call Work4 pager [phone] Natalia Claros APRN 12/01/2019 7:42 AM Clinical Documentation Improvement: Active Hospital Problems Diagnosis ??? Acute ST elevation myocardial infarction (STEMI) of inferior wall ??? Intracranial hemorrhage ??? Hyperlipidemia ??? Tobacco abuse ??? Claudication from peripheral vascular disease, left Resolved Hospital Problems No resolved problems to display. Tello Hsu, SPECIALTY MOLDER - 11/30/2019 8:44 PM EDT Respiratory Therapy [...] EDT Narrative:Visited in response to request for Host/Hostess services. Pt was awake, alert, oriented and in bed. Assessment:Patient coping positively with stresses of illness/hospitalization at this time. Pt says that he is hoping to get better and pt is living with and has children and grandchildren. Pt haspurpose of life and has reason to get getter and to be with family. Outcome: Provided emotional and spiritual support and encouraging presence. Host/Hostess services accepted.Conversation to build trusting relationship.Provided pastoral [...] complications include novel onset, paroxysmal atrial fibrillation [[id number]: 4] & L-sided diplopia with potential hemineglect for which CVA evaluationto be pursued. Active Problems/Subjective: - Overnight, CVP < 12 for which a total of 1 L IVF provided - Today AM, patient complains of subjectively reported, left-sided hemineglect with floaters and diplopia [see: exam]. - Otherwise, c/o neck pain 2/2 R IJ Ellerbe & L radial A line. Otherwise, denies [...] a non-culprit artery. S/P DESx3 in the uaxuonhv-li-zrftzx RCA. Aspiration thrombectomy performed, and integrellin bolus [...] complications include novel onset, paroxysmal atrial fibrillation [[id number]: 4] & L-sided diplopia with potential hemineglect [...] Anticoagulation/Arrhythmia # Novel Onset, Paroxsymal Atrial Fibrillation [[id number]: 4] - Obtain: TTE to confirm rhythm [...] tamsulosin d/t low BP. # Nutrition - [facility] Diet -- Hematology/Oncology-- # Mild Thrombocytopenia, unclear [...] MD, PGY3 PGY3, Internal Medicine Cardiology S2, #[id number] I have seen the patient and reviewed [...] down the line. Gretchen Yoon MD Pager [phone] Paola Capps RN - 11/30/2019 6:57 AM EDT PT still requiring 4 of levo, several attempts to titrate down (maps in 70;s) But maps would drop toless than 65. Pt very restless in bed Raising and lowering head denies pain . Integrillin stopped [id number] when bottle complete , urine tea colored [...] PCP: France Lam MD PCP phone #: [phone] Compressor Station Engineer: None ID/Chief Complaint: Chest pain History of Present Illness: 74 y.o male with no significant PMH, was in usual state of health until yesterday when he woke up at 4am this morning with severe crushing substernal chest pain 10/. He took two full strength aspirin and came to [facility] ED. At there was found to [...] and Compazine. He was transferred directly to [facility] via [facility] for further management. Patient had an emergent PCI with 3 MACARIO stents placed to his RCA, with mild disease of LCX (report pending) at [facility]. He was found to be persistently hypotensive requiring Levo up to 10mcg/min. He was transferred to [facility] after the cath procedure. Bedside RHC showed CI 2.12, PAWP 11, PAP 38/15 indicating hypovolemic state. He received 1L bolus of NS with improvement of his blood pressure to 124/61. History of PAD, HLD - had side reactions to statins - so taking niacin and red rye grain. Chronic active smoker with more than 65 pack years. Family history of [place] in father and two uncles. He's takingbaby [...] ??? Penicillins Pt doesn't remember reaction ??? Zuldtij-Zpk-Rgg Reductase Inhibitors Stiff neck, upset stomach, back pain Family History: Mother: Father: [place] 2 Uncles with MIs Social History: Tobacco: Current active smoker 1 ppd. 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 Vitals: Last value Range last [...] in the last 7068 hours. Invalid input(s): [id number] Heme: No results for input(s): LDH, HAPTOGLOBIN, [...] OSH prior to transfer and PCI at [facility]. Massive inferior STEMI with troponin level 20, currently in CVCC due to pressor requirement. BedsideRHC demonstrated evidence of elevated right sided heart failure, but his wedge was wnl. He received 1L bolus with improvement of his blood pressure and reduction of his pressor requirement. PLAN: Admit to Cardiology, S2 Team Pager # [phone] #Inferior STEMI, LEYLA 149 - Resolving EKG [...] inferior STEMI s/p lytic therapy. Transferred to [facility] and underwent successful PCI of the RCA with MACARIO x3. Gretchen Yoon MD Pager [phone] documented in this encounter Procedure Notes Juventino [...] to the planned procedure. Hand Hygiene: The lurer did perform hand hygiene prior to arterial [...] a suspected line-associated infection. Location of Procedure: [facility] Risks and Benefits: The risks and benefits [...] to the planned procedure. Hand Hygiene: The lurer did perform hand hygiene prior to line [...] side:right An Introducer (PSI Kit) was used. Chromo. Insertion Side: right. Insertion Site: internal jugular. Catheter Details: Number of Lumens: 1 Catheter Type: heparin-coated The line was placed over a guidewire. Confirmation of Venous Placement: Venous placement was confirmed by transducing the pressure. Introducer Insertion Attempts: 1 Comments: Floating the Ellerbe-Mo Catheter Attempts: 1 Comments: Sterile Dressing: Biopatch [...] better pt back in SR. Please page [phone] for any more cares or concerns Plan of Care - Mukesh Bentlye RN - 12/07/2019 4:19 AM EDT Problem: [...] complications include novel onset, paroxysmal atrial fibrillation [[id number]: 5]& L-sided diplopia with potential hemineglect for [...] Total Evaluation Minutes, Occupational Therapy: 10 Pager: [phone] FRANCINE Nuñez Occupational Therapy Rehabilitation Department Plan [...] complications include novel onset, paroxysmal atrial fibrillation [[id number]: 5] & L-sided diplopia with potential hemineglect [...] hand rails). Baseline Mobility: Independent. Drives. 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 Time IN / OUT: 9888-3193 Total Evaluation Minutes, Physical Therapy: 15(gtx1) Barbara Baldwin, PT Pager: [phone] Physical Therapy Inpatient Rehabilitation Department Plan of [...] he receives all he needs through the [facility]. Consult refused. Romain Tran, MSN, RN-, [facility] Tobacco Fine Patcher [facility] Pager #[phone] Plan of Care - Romain Oglesby OT [...] complications include novel onset, paroxysmal atrial fibrillation [[id number]: 5] & L-sided diplopia with potential hemineglect [...] and measurable assessment of functional outcome. Pager: [phone] ROMAIN OGLESBY OT 12/03/2019 Occupational Therapy Rehabilitation [...] in an outpatient cardiac rehabilitation program at [facility] was discussed. Patient agrees to a referral to this program. His has been a cardiac rehab patient at [facility] and he is familiar with the [...] complications include novel onset, paroxysmal atrial fibrillation [[id number]: 5] & L-sided diplopia with potential hemineglect [...] hand rails). Baseline Mobility: Independent. 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 Time IN / OUT: 1869-5405 Total Evaluation Minutes, Physical Therapy: 25(eval, gtx1) Barbara Baldwin, PT Pager: [phone] Physical Therapy Inpatient Rehabilitation Department Consult Note [...] Please contact JOHANNA NOBLES RN on pager [phone] or the wound care team at [phone] or pager [phone] skin and wound care concerns or questions. [...] making law. Any patient receiving carspousee at [facility] must abide by [place] law. The hierarchy [...] (i) The agent with financial power of staff command and control officer or a conservator appointed in accordance with [...] Insurance: N/A Prescription Coverage: Yes Preferred Pharmacy: [place], [place] Other: No Primary Care Provider: France Lam MD [phone] Patient/Caregiver Goals of Treatment: Return home Potential Needs for Transition of Care: Rehab/SNF: Based on discussions with the multi-disciplinary healthcare team, the patient would benefit from SNF level of care at discharge. ?? I have met with the patient to discuss discharge planning needs. I have provided the [facility], Officeof Care Management letter from the Bakery Team Leader pertaining to rehab referrals. I have also provided a letter describing our affiliations within the [facility] and educated them about their right [...] patient have requested referrals to: ?? 1. [facility] [address] [place] [phone] ?? [address] [place] [address] Note routed to Deputy Sheriff/Investigator who will communicate referrals to facilities and provide any required information. Home Health: If therapies recommend home w/ VNA, the patient has been provided a list of Home Health Agencies/DME vendors which serve their preferred geographic area. A letter describing our affiliations was reviewed with them and they were educated about their right to choose where referrals are placed. Patient requests referral to [facility]. PHONE: [phone] FAX: [phone] Referral routed to the Deputy Sheriff/Investigator for matching with agency/vendor and to provide [...] Insured w/ Medicare. Gets medications filled at [facility] in [place], [place]. Son to transport at discharge Plan: Discharge dispo depending on patient's physical recovery; SNF vs home w/ VNA. A member of the Care Management team will continue to monitor progress, follow for continuity of care and assist with transition of care planning. Derian Pascual, NIURKA Pager: [phone] Plan of Care - Estefani Baeza RN [...] ??? Penicillins Pt doesn't remember reaction ??? Dtokrkk-Ynp-Cej Reductase Inhibitors Stiff neck, upset stomach, back [...] noncontrast head CT and CT of the [place] of [place] at 1600 hrs. We will [...] vision concerning for stroke. Patient presented to [facility] in transfer for a STEMI after presenting [...] ??? Penicillins Pt doesn't remember reaction ??? Vkuzzgg-Kwl-Bta Reductase Inhibitors Stiff neck, upset stomach, back [...] file Gets together: Not on file Attends taoism service: Not on file Active member of [...] L Elbow flexion 5/5 R, 5/5 L Patient Services Assistant LE: 5/5 R, 5/5 L Hip flexion [...] PGY3 Neurology Resident 11/30/2019 Vascular Neurology Pager [phone] Standard [facility] Swallow Screen: This screen is to be [...] diet as medical provider deems appropriate. Consider STATISTICAL MODELER consult for full evaluation and diet recommendations. [...] Afib admitted s/p thrombolysis and Cath-Stent to [facility] who developed R sided visual [...] Note Patient Name: Angel Luis Salinas : [id number] MR#: [id number] Case Date: 11/29/2019 Surgeon: Surgeon(s) and Role: * Gretchen Yoon MD - Primary * Aidan Ward MD - Fellow Preoperative diagnosis: Inferior STEMI Postoperative diagnosis: Inferior STEMI Procedure(s) (LRB): CARDIAC CATHETERIZATION (N/A) Findings: Discrete 90% stenosis in the prox-to-mid RCA. Severe diffuse disease in the distal vessel. Discrete LCX stenosis in a non-culprit artery. S/P DESx3 in the aywqchfw-ig-hkitrk RCA. Aspiration thrombectomy performed, and integrellin bolus [...] are i n the results section. CT Q[place] OF [place] W STAT 11/30/2019 4:36 Res [...] athologist Signature Potassium 3.9 3.5 - 5.0 [facility] mmol/L [facility] Comment: Please [...] Organization Address City/State/[place] [address] (ABNORMAL) Hemogram (12/08/2019 12:39 PM EDT) Analysis Performed At Patho logist Time Signature WBC 9.9 (H) 4.0 - 9.5 [facility] x10(3)/[facility] LABORATORY RBC 4.51 (L) 4.58 - [place] DOV 5.54 [facility] x10(6)/[facility] LABORATORY Hemoglobin 13.0 (L) 13.7 - [place] D[place] 16.5 gm/dL [facility] Hematocrit 40.5 40.5 - [place] 48.5 % [facility] MCV 89.8 82.9 - [facility] DOV 93.1 [facility] LABORATORY MCH 28.8 27.5 - [place] 32.1 pg [facility] MCHC 32.1 32.0 - [place] 35.7 gm/dL [facility] Platelets 214 145 - 357 [facility] x10(3)/[facility] LABORATORY RDWSD 49.2 (H) 36.0 - [place] 45.0 [facility] LABORATORY RDWCV 15.1 (H) 11.4 - [place] D[place] 13.8 % [facility] MPV 12.1 7.6 - 12.9 [facility] nRBC % Auto 0.0 % [facility] LABORATORY nRBC Abs Auto 0.000 0.000 - [place] D[place] 0.000 [facility] x10(3)/[facility] LABORATORY Specimen Anatomical Collection Method Collection Time Receive d Time (Source) Location / / Volume Laterality Blood specimen 12/08/2019 12:39 0 (specimen) PM EDT 12:47 PM EDT Resulting Agency Comment Spec In Lab Gretchen Yoon MD HEMATOLOGY ORDERABLES Performing Organization Address City/State/ZIP Code Phon e Number [address] Hepatic Function Panel (12/08/2019 6:28 AM EDT) athologist Signature Total Protein 6.6 6.1 - 8.0 [facility] DOV gm/dL [facility] Albumin 3.2 3.2 - 5.2 [place] gm/dL [facility] AST 18 0 - 39 [place] unit/L [facility] ALT 13 0 - 55 [place] unit/L [facility] Alk Phos 64 40 - 130 [facility] DOV unit/L [facility] Total 0.4 0.2 - 1.3 [facility] Bilirubin mg/dL [facility] Bili, Direct 0.1 0.0 - 0.3 [facility] DOV mg/dL [facility] Specimen Anatomical Collection Method Collection Time Receive d Time (Source) Location / / Volume Laterality Blood specimen Venous Draw / 12/08/2019 6:28 AM 2019 6:36 (specimen) Unknown EDT AM EDT Resulting Agency Comment Spec In Lab Riki Stevens MD CHEMISTRY ORDERABLES Performing Organization Address City/[facility]/ZIP Code Phon e Number [address] (ABNORMAL) TSH (12/08/2019 6:28 AM EDT) athologist Signature TSH 5.27 (H) 0.27 - 4.20 [facility] DOV mcIU/mL [facility] Specimen Anatomical Collection Method Collection Time Receive d Time (Source) Location / / Volume Laterality Blood specimen Venous Draw / 12/08/2019 6:28 AM 2019 6:36 (specimen) Unknown EDT AM EDT Resulting Agency Comment Spec In Lab Darrell Glasgow MD CHEMISTRY ORDERABLES Performing Organization Address City/[facility]/ZIP Code Phon e Number [address] Potassium (12/08/2019 6:28 AM EDT) P athologist Signature Potassium 4.2 3.5 - 5.0 [facility] mmol/L [facility] Comment: Please [...] City/State/ZIP Code Phon e Number [place] [id number] (ABNORMAL) Differential, Automated (12/08/2019 12:43 AM EDT) Patholo gist Method Time Signature Neutrophils % 60.7 % [facility] Neutr Abs (ANC) 6.81 (H) 1.70 - [facility] 6.10 [facility] x10(3)/[facility] LABORATORY Lymphocytes % 23.4 % [facility] Lymphocytes Abs 2.6 0.9 - 3.2 [facility] x10(3)/[facility] LABORATORY Monocytes % 10.0 % [facility]ORY Monocyte Abs 1.1 (H) 0.3 - 0.9 [facility] x10(3)/[facility] LABORATORY Eosinophils % 3.7 % [facility] Eosinophils Abs 0.4 0.0 - 0.4 [facility] x10(3)/[facility] LABORATORY Basophils % 1.2 % [facility] Basophils Abs 0.1 0.0 - 0.1 [facility] x10(3)/[facility] LABORATORY Immature Gran % 1.00 % [facility] [...] 0.00 - 0.04 x10(3)/[facility] LABORATORY Specimen Anatomical Collection Method Collection Time Receive d Time (Source) Location / / Volume Laterality Blood specimen 12/08/2019 12:43 0 (specimen) AM EDT 12:52 AM EDT Resulting Agency Comment Spec In Lab Riki Stevens MD HEMATOLOGY ORDERABLES Performing Organization Address City/State/[place] [address] (ABNORMAL) Hemogram (12/08/2019 12:43 AM EDT) Analysis Performed At Patho logist Time Signature WBC 11.2 (H) 4.0 - 9.5 [facility] x10(3)/[facility] LABORATORY RBC 4.46 (L) 4.58 - [facility] DOV 5.54 [facility] x10(6)/[facility] LABORATORY Hemoglobin 13.1 (L) 13.7 - [facility] 16.5 gm/dL [facility] Hematocrit 40.5 40.5 - [facility] DOV 48.5 % [facility] MCV 90.8 82.9 - [facility] 93.1 [facility] LABORATORY MCH 29.4 27.5 - [facility] DOV 32.1 pg [facility] MCHC 32.3 32.0 - [facility] DOV 35.7 gm/dL [facility] Platelets 215 145 - 357 [facility] x10(3)/[facility] LABORATORY RDWSD 49.8 (H) 36.0 - [facility] DOV 45.0 [facility] LABORATORY RDWCV 15.2 (H) 11.4 - [facility] DOV 13.8 % [facility]ORATORY MPV 12.3 7.6 - 12.9 [facility] LABORATORY nRBC % Auto 0.0 % [facility] LABORATORY nRBC Abs Auto 0.000 0.000 - [facility] DOV 0.000 [facility] x10(3)/[facility] LABORATORY Specimen Anatomical Collection Method Collection Time Receive d Time (Source) Location / / Volume Laterality Blood specimen 12/08/2019 12:43 0 (specimen) AM EDT 12:52 AM EDT Resulting Agency Comment Spec In Lab Riki Stevens MD HEMATOLOGY ORDERABLES Performing Organization Address City/State/ZIP Code Phon e Number [address] Magnesium (12/08/2019 12:43 AM EDT) athologist Signature Magnesium 1.01 0.69 - 1.07 [facility] mmol/L [facility] Specimen Anatomical Collection Method Collection Time Receive d Time (Source) Location / / Volume Laterality Blood specimen 12/08/2019 12:43 0 (specimen) AM EDT 12:52 AM EDT Resulting Agency Comment Spec In Lab Gretchen Yoon MD CHEMISTRY ORDERABLES Performing Organization Address City/State/Z[place] [address] (ABNORMAL) BMP w/fasting Glucose (12/08/2019 12:43 AM EDT) P athologist Signature Glucose 106 (H) 65 - 99 [facility] Fasting mg/dL [facility] Comment: [...] of Diabetes Mellitus, Position Statement from the [employer]. ??Diabete s Care, Volume 33, Supplement 1, Jul 2009 BUN 14 10 - 20 mg/dL [facility] DOV [facility] LABORATORY Creatinine 1.16 0.80 - 1.50 mg/dL [facility] LABOR[facility]ORY Sodium 134 (L) 135 - 145 mmol/L [facility] Potassium 4.0 3.5 - 5.0 mmol/L [facility] Comment: Please note: ??Patients with [...] Gap 16 (H) 5 - 15 mmol/L [facility] Calcium 8.9 8.5 - 10.5 mg/dL [facility] Estimated GFR 62 >=60 mL/min/1.73 m?? [facility] Comment: The eGFR was calculated using the CKD-EP I equation. As with all creatinine based estimates of kidney function, eGFR values calculated with the CKD-EPI equation are not accurate in patients wi th acute kidney failure, extremes of body mass or the acutely ill. [email or web address]/[facility]nkf eGFR 72 >=60 mL/min/1.73 m?? [facility] Comment: The eGFR was calculated using the CKD-EP I equation. As with all creatinine based estimates of kidney function, eGFR values calculated with the CKD-EPI equation are not accurate in patients wi th acute kidney failure, extremes of body mass or the acutely ill. [email or web address]/[facility]ANnkf Specimen Anatomical Collection Method Collection Time Receive d Time (Source) Location / / Volume Laterality Blood specimen 12/08/2019 12:43 0 (specimen) AM EDT 12:52 AM EDT Resulting Agency Comment Spec In Lab Gretchen Yoon MD CHEMISTRY ORDERABLES Performing Organization Address City/State/ZIP Code Phon e Number [place] [phone] Heparin (unfractionated) Level (12/08/2019 12:43 AM EDT) athologist Signature Heparin UFH 0.60 IU/mL [facility] LABORATORY Comment: Guidelines for therapeutic unfractionate [...] Organization Address City/State/[place] [address] Potassium (12/07/2019 8:39 PM EDT) athologist Signature Potassium 4.1 3.5 - 5.0 [facility] mmol/L [facility] Comment: Please [...] Organization Address City/State/ZIP Code Phon e Number [address] Potassium (12/07/2019 4:02 PM EDT) P athologist Signature Potassium 4.0 3.5 - 5.0 [facility] DOV mmol/L [facility] Comment: Please [...] Yoon MD CHEMISTRY ORDERABLES Performing Organization Address City/[facility]/ZIP [place] [address] (ABNORMAL) Hemogram (12/07/2019 4:02 PM EDT) Analysis Performed At Patho logist Time Signature WBC 17.4 (H) 4.0 - 9.5 [place] [facility] x10(3)/[facility] LABORATORY RBC 4.58 4.58 - [place] DOV 5.54 [facility] x10(6)/[facility] LABORATORY Hemoglobin 13.5 (L) 13.7 - [place] [facility] 16.5 gm/dL [facility] Hematocrit 40.8 40.5 - [place] DOV 48.5 % [facility] MCV 89.1 82.9 - [place] DOV 93.1 [facility] LABORATORY MCH 29.5 27.5 - [place] DOV 32.1 pg [facility] MCHC 33.1 32.0 - [place] [facility] 35.7 gm/dL [facility] Platelets 238 145 - 357 [place] DOV x10(3)/[facility] LABORATORY RDWSD 48.8 (H) 36.0 - MELINA DOV 45.0 [facility] LABORATORY RDWCV 15.0 (H) 11.4 - [facility] DOV 13.8 % [facility] LABORATORY MPV 12.2 7.6 - 12.9 MELINA DOV [facility] LABORATORY nRBC % Auto 0.0 % [facility] LABORATORY nRBC Abs Auto 0.000 0.000 - MELINA MONAE 0.000 [facility] x10(3)/[facility] LABORATORY Specimen Anatomical Collection Method Collection Time Receive d Time (Source) Location / / Volume Laterality Blood specimen 12/07/2019 4:02 PM 020 4:08 (specimen) EDT PM EDT Resulting Agency Comment Spec In Lab Gretchen Yoon MD HEMATOLOGY ORDERABLES Performing Organization Address City/[facility]/[place] [address] EKG 12 Lead (12/07/2019 [...] (Bezet) Calculated P -12 degrees MUSE SYSTEM [place] Calculated R 10 degrees MUSE SYSTEM [place] Calculated T -138 degrees MUSE SYSTEM [place] INTERPRETATION Supraventricular tachycardia MUSE SYSTEM Low voltage [...] athologist Signature Potassium 4.2 3.5 - 5.0 [facility] mmol/L [facility] LABORATORY Comment: Please [...] Lagos MD CHEMISTRY ORDERABLES Performing Organization Address [facility] [place] [address] Heparin (unfractionated) Level (12/07/2019 11:43 AM EDT) athologist Signature Heparin UFH 0.59 IU/mL [facility] LABORATORY Comment: Guidelines for therapeutic unfractionate [...] Lagos MD HEMATOLOGY ORDERABLES Performing Organization Address [facility] [place] [address] Heparin (unfractionated) Level (12/07/2019 5:20 AM EDT) P athologist Signature Heparin UFH 0.53 IU/mL [facility] LABORATORY Comment: Guidelines for therapeutic unfractionate [...] Organization Address City/State/[place] [address] (ABNORMAL) Differential, Automated (12/07/2019 5:20 AM EDT) Patholo gist Method Time Signature Neutrophils % 62.4 % [facility] LABORATORY Neutr Abs (ANC) 5.46 1.70 - [facility] 6.10 [facility] x10(3)/[facility] LABORATORY Lymphocytes % 20.3 % [facility] LABORATORY Lymphocytes Abs 1.8 0.9 - 3.2 [facility] x10(3)/[facility] LABORATORY Monocytes % 11.0 % [facility] LABORATORY Monocyte Abs 1.0 (H) 0.3 - 0.9 [facility] x10(3)/[facility] LABORATORY Eosinophils % 4.5 % [facility] LABORATORY Eosinophils Abs 0.4 0.0 - 0.4 [facility] x10(3)/[facility] LABORATORY Basophils % 0.9 % [facility] LABORATORY Basophils Abs 0.1 0.0 - 0.1 [facility] x10(3)/[facility] LABORATORY Immature Gran % 0.90 % [facility] [...] 0.00 - 0.04 x10(3)/[facility] LABORATORY Specimen Anatomical Collection Method Collection Time Receive d Time (Source) Location / / Volume Laterality Blood specimen 12/07/2019 5:20 AM 020 5:37 (specimen) EDT AM EDT Resulting Agency Comment Spec In Lab Riki Stevens MD HEMATOLOGY ORDERABLES Performing Organization Address City/State/[place] [address] (ABNORMAL) Hemogram (12/07/2019 5:20 AM EDT) Analysis Performed At Patho logist Time Signature WBC 8.7 4.0 - 9.5 [facility] x10(3)/[facility] LABORATORY RBC 4.20 (L) 4.58 - [facility] 5.54 [facility] x10(6)/[facility] LABORATORY Hemoglobin 12.3 (L) 13.7 - [facility] 16[facility] gm/dL [facility] LABORATORY Hematocrit 37.4 (L) 40.5 - [facility] 48.5 % [facility] LABORATORY MCV 89.0 82.9 - [facility] 93.1 fL [facility] LABORATORY MCH 29.3 27.5 - [facility] 32.1 pg [facility] LABORATORY MCHC 32.9 32.0 - MELINA MONAE 35.7 gm/dL [facility] LABORATORY Platelets 181 145 - 357 MELINA MONAE x10(3)/[facility] LABORATORY RDWSD 47.7 (H) 36.0 - MELINA MONAE 45.0 [facility] LABORATORY RDWCV 14.8 (H) 11.4 - MELINA MONAE 13.8 % [facility] LABORATORY MPV 12.3 7.6 - 12.9 MELINA DOV [facility] LABORATORY nRBC % Auto 0.0 % [facility] LABORATORY nRBC Abs Auto 0.000 0.000 - MELINA MONAE 0.000 [facility] x10(3)/[facility] LABORATORY Specimen Anatomical Collection Method Collection Time Receive d Time (Source) Location / / Volume Laterality Blood specimen 12/07/2019 5:20 AM 020 5:37 (specimen) EDT AM EDT Resulting Agency Comment Spec In Lab Riki Stevens MD HEMATOLOGY ORDERABLES Performing Organization Address City/[facility]/ZIP Code Phon e Number [address] Magnesium (12/07/2019 5:20 AM EDT) P athologist Signature Magnesium 0.89 0.69 - 1.07 [facility]L [facility] LABORATORY Specimen Anatomical Collection Method Collection Time Receive d Time (Source) Location / / Volume Laterality Blood specimen 12/07/2019 5:20 AM 020 5:37 (specimen) EDT AM EDT Resulting Agency Comment Spec In Lab Gretchen Yoon MD CHEMISTRY ORDERABLES Performing Organization Address City/[facility]/ZIP Code Phon e Number [address] (ABNORMAL) BMP w/fasting Glucose (12/07/2019 5:20 AM EDT) P athologist Signature Glucose 100 (H) 65 - 99 [facility] F[facility] mg/dL [facility] LABORATORY Comment: [...] of Diabetes Mellitus, Position Statement from the [employer]. ??Diabete s Care, Volume 33, Supplement 1, Jul 2009 BUN 14 10 - 20 mg/dL [facility] LABORATORY Creatinine 0.83 0.80 - 1.50 mg/dL [facility] LABORATORY Sodium 135 135 - 145 mmol/L [facility] LABORATORY Potassium 3.8 3.5 - 5.0 mmol/L [facility] LABORATORY Comment: Please note: ??Patients with [...] Anion Gap 14 5 - 15 mmol/L [facility] LABORATORY Calcium 8.8 8.5 - 10.5 mg/dL [facility] LABORATORY Estimated GFR 87 >=60 mL/min/1.73 m?? [facility] LABORATORY Comment: The eGFR was calculated using the CKD-EP I equation. As with all creatinine based estimates of kidney function, eGFR values calculated with the CKD-EPI equation are not accurate in patients wi th acute kidney failure, extremes of body mass or the acutely ill. [email or web address] eGFR 101 >=60 mL/min/1.73 m?? [facility] LABORATORY Comment: The eGFR was calculated using the CKD-EP I equation. As with all creatinine based estimates of kidney function, eGFR values calculated with the CKD-EPI equation are not accurate in patients wi th acute kidney failure, extremes of body mass or the acutely ill. [email or web address] Specimen Anatomical Collection Method Collection Time Receive d Time (Source) Location / / Volume Laterality Blood specimen 12/07/2019 5:20 AM 020 5:37 (specimen) EDT AM EDT Resulting Agency Comment Spec In Lab Gretchen Yoon MD CHEMISTRY ORDERABLES Performing Organization Address [facility] [place] [address] Heparin (unfractionated) Level (12/06/2019 10:14 PM EDT) athologist Signature Heparin UFH 0.29 IU/mL [facility] LABORATORY Comment: Guidelines for therapeutic unfractionate [...] Lagos MD HEMATOLOGY ORDERABLES Performing Organization Address [facility] [place] [address] Head wo Contrast [...] For questions regarding this report, please contact [facility] number below. ? Narrative 12/06/2019 [...] Signature WBC 10.4 (H) 4.0 - 9.5 [facility] x[facility](3[facility] LABORATORY RBC 4.32 (L) 4.58 - [facility] DOV 5.54 [facility] x10(6)/[facility] LABORATORY Hemoglobin 12.5 (L) 13.7 - [facility] 16.[facility] gm/dL [facility] LABORATORY Hematocrit 38.4 (L) 40.5 - [facility] 48.5 % [facility] LABORATORY MCV 88.9 82.9 - [facility] 93.1 [facility] LABORATORY MCH 28.9 27.5 - [facility] DOV 32.1 pg [facility] LABORATORY MCHC 32.6 32.0 - [facility] 35.7 gm/dL [facility] LABORATORY Platelets 194 145 - 357 [facility] x10(3)/[facility] LABORATORY RDWSD 46.9 (H) 36.0 - [facility] 45.0 [facility] LABORATORY RDWCV 14.6 (H) 11.4 - [facility] 13.8 % [facility] LABORATORY MPV 11.9 7.6 - 12.9 [facility] LABORATORY nRBC % Auto 0.0 % [facility] LABORATORY nRBC Abs Auto 0.000 0.000 - [facility] DOV 0.000 [facility] x10(3)/[facility] LABORATORY Specimen Anatomical Collection Method Collection Time Receive d Time (Source) Location / / Volume Laterality Blood specimen 12/06/2019 4:20 PM 020 4:31 (specimen) EDT PM EDT Resulting Agency Comment Spec In Lab Gretchen Yoon MD HEMATOLOGY ORDERABLES Performing Organization Address City/State/[place] [address] Heparin (unfractionated) Level (12/06/2019 4:20 PM EDT) P athologist Signature Heparin UFH 0.30 IU/mL [facility] LABORATORY Comment: Guidelines for therapeutic unfractionate [...] Organization Address City/State/[place] [address] Heparin (unfractionated) Level (12/06/2019 10:02 AM EDT) athologist Signature Heparin UFH <0.04 IU/mL [facility] LABORATORY Comment: Guidelines for therapeutic unfractionate [...] Lagos MD HEMATOLOGY ORDERABLES Performing Organization Address City/[facility]/ZIP Code Phon e Number [address] Magnesium (12/06/2019 3:36 AM EDT) P athologist Signature Magnesium 0.86 0.69 - 1.07 [facility] mmol/L [facility] LABORATORY Specimen Anatomical Collection Method Collection Time Receive d Time (Source) Location / / Volume Laterality Blood specimen 12/06/2019 3:36 AM 020 3:45 (specimen) EDT AM EDT Resulting Agency Comment Spec In Lab Gretchen Yoon MD CHEMISTRY ORDERABLES Performing Organization Address City/[facility]/ZIP Code Phon e Number [address] (ABNORMAL) BMP w/fasting Glucose (12/06/2019 3:36 AM EDT) P athologist Signature Glucose 103 (H) 65 - 99 [facility] Fasting mg/dL [facility] LABORATORY Comment: [...] of Diabetes Mellitus, Position Statement from the [place] [employer]. ??Diabete s Care, Volume 33, Supplement 1, Jul 2009 BUN 20 10 - 20 mg/dL [facility] LABORATORY Creatinine 0.88 0.80 - 1.50 mg/dL [facility] LABORATORY Sodium 136 135 - 145 mmol/L [facility] LABORATORY Potassium 4.0 3.5 - 5.0 mmol/L [facility] LABORATORY Comment: Please note: ??Patients with [...] Anion Gap 14 5 - 15 mmol/L [facility] LABORATORY Calcium 8.7 8.5 - 10.5 mg/dL [facility] LABORATORY Estimated GFR 85 >=60 mL/min/1.73 m?? [facility] LABORATORY Comment: The eGFR was calculated using the CKD-EP I equation. As with all creatinine based estimates of kidney function, eGFR values calculated with the CKD-EPI equation are not accurate in patients wi th acute kidney failure, extremes of body mass or the acutely ill. [email or web address] eGFR 99 >=60 mL/min/1.73 m?? [facility] LABORATORY Comment: The eGFR was calculated using the CKD-EP I equation. As with all creatinine based estimates of kidney function, eGFR values calculated with the CKD-EPI equation are not accurate in patients wi th acute kidney failure, extremes of body mass or the acutely ill. [email or web address] Specimen Anatomical Collection Method Collection Time Receive d Time (Source) Location / / Volume Laterality Blood specimen 12/06/2019 3:36 AM 020 3:45 (specimen) EDT AM EDT Resulting Agency Comment Spec In Lab Gretchen Yoon MD CHEMISTRY ORDERABLES Performing Organization Address City/State/ZIP Code Phon e Number [address] (ABNORMAL) Hemogram (12/06/2019 3:36 AM EDT) Analysis Performed At Patho logist Time Signature WBC 9.2 4.0 - 9.5 [facility] x[facility](3[facility] LABORATORY RBC 3.99 (L) 4.58 - MELINA DOV 5.54 [facility] x10(6)/[facility] LABORATORY Hemoglobin 11.9 (L) 13.7 - [facility] 16.5 gm/dL [facility] LABORATORY Hematocrit 35.5 (L) 40.5 - [facility] 48.5 % [facility] LABORATORY MCV 89.0 82.9 - [facility] 93.1 [facility] LABORATORY MCH 29.8 27.5 - MELINA DOV 32.1 pg [facility] LABORATORY MCHC 33.5 32.0 - MELINA DOV 35.7 gm/dL [facility] LABORATORY Platelets 164 145 - 357 [facility] x10(3)/[facility] LABORATORY RDWSD 47.6 (H) 36.0 - MELINA DOV 45.0 [facility] LABORATORY RDWCV 14.7 (H) 11.4 - [facility] 13.8 % [facility] LABORATORY MPV 11.9 7.6 - 12.9 [facility] LABORATORY nRBC % Auto 0.0 % [facility] LABORATORY nRBC Abs Auto 0.000 0.000 - [facility] DOV 0.000 [facility] x10(3)/[facility] LABORATORY Specimen Anatomical Collection Method Collection Time Receive d Time (Source) Location / / Volume Laterality Blood specimen 12/06/2019 3:36 AM 020 3:45 (specimen) EDT AM EDT Resulting Agency Comment Spec In Lab Gretchen Yoon MD HEMATOLOGY ORDERABLES Performing Organization Address City/[facility]/ZIP Code Phon e Number [address] (ABNORMAL) Differential, Automated (12/05/2019 10:52 PM EDT) Patholo gist Method Time Signature Neutrophils % 61.9 % [facility] LABORATORY Neutr Abs (ANC) 6.02 1.70 - [facility] 6.10 [facility] x10(3)/[facility] LABORATORY Lymphocytes % 22.4 % [facility] LABORATORY Lymphocytes Abs 2.2 0.9 - 3.2 [facility] x10(3)/[facility] LABORATORY Monocytes % 10.4 % [facility] LABORATORY Monocyte Abs 1.0 (H) 0.3 - 0.9 [facility] x10(3)/[facility] LABORATORY Eosinophils % 4.1 % [facility] LABORATORY Eosinophils Abs 0.4 0.0 - 0.4 [facility] x10(3)/[facility] LABORATORY Basophils % 0.7 % [facility] LABORATORY Basophils Abs 0.1 0.0 - 0.1 [facility] x10(3)/[facility] LABORATORY Immature Gran % 0.50 % [facility] [...] 0.00 - 0.04 x10(3)/[facility] LABORATORY Specimen Anatomical Collection Method Collection Time Receive d Time (Source) Location / / Volume Laterality Blood specimen 12/05/2019 10:52 0 (specimen) PM EDT 10:59 PM EDT Resulting Agency Comment Spec In Lab Mandi Barrera MD HEMATOLOGY ORDERABLES Performing Organization Address City/State/[place] [address] (ABNORMAL) Hemogram (12/05/2019 10:52 PM EDT) Analysis Performed At [facility] logist Time Signature WBC 9.7 (H) 4.0 - 9.5 [facility] x10(3)/[facility] LABORATORY RBC 4.07 (L) 4.58 - [place] DOV 5.54 [facility] x10(6)/[facility] LABORATORY Hemoglobin 11.9 (L) 13.7 - [place] 16.5 gm/dL [facility] LABORATORY Hematocrit 36.4 (L) 40.5 - [place] 48.5 % [facility] LABORATORY MCV 89.4 82.9 - [facility] 93.1 [facility] LABORATORY MCH 29.2 27.5 - MELINA DOV 32.1 pg [facility] LABORATORY MCHC 32.7 32.0 - M[place]INA DOV 35.7 gm/dL [facility] LABORATORY Platelets 167 145 - 357 [facility] x10(3)/[facility] LABORATORY RDWSD 47.7 (H) 36.0 - [facility] 45.0 [facility] LABORATORY RDWCV 14.6 (H) 11.4 - [facility] 13.8 % [facility] LABORATORY MPV 12.1 7.6 - 12.9 [facility] LABORATORY nRBC % Auto 0.0 % [facility] LABORATORY nRBC Abs Auto 0.000 0.000 - [facility] 0.000 [facility] x10(3)/[facility] LABORATORY Specimen Anatomical Collection Method Collection Time Receive d Time (Source) Location / / Volume Laterality Blood specimen 12/05/2019 10:52 0 (specimen) PM EDT 10:59 PM EDT Resulting Agency Comment Spec In Lab Mandi Barrera MD HEMATOLOGY ORDERABLES Performing Organization Address City/State/[place] [address] Heparin (unfractionated) Level (12/05/2019 10:52 PM EDT) P athologist Signature Heparin UFH <0.04 IU/mL [facility] LABORATORY Comment: Guidelines for therapeutic unfractionate [...] Organization Address City/State/ZIP [place] [address] MRI Brain wwo Contrast [...] number below. Electronically signed by: ALBA Jenkins [facility] ([phone]), at 12/05/2019 10:02 PM Paris Lagos MD IMG MRI ORDERABLES (ABNORMAL) Hemogram (12/05/2019 1:00 PM EDT) Analysis Performed At Patho logist Time Signature WBC 8.7 4.0 - 9.5 [facility] x10(3)/[facility] LABORATORY RBC 4.17 (L) 4.58 - [facility] 5.54 [facility] x10(6)/[facility] LABORATORY Hemoglobin 12.4 (L) 13.7 - [facility] 16.[facility] gm/dL [facility] LABORATORY Hematocrit 37.0 (L) 40.5 - [facility] 48.5 % [facility] LABORATORY MCV 88.7 82.9 - [facility] 93.1 [facility] LABORATORY MCH 29.7 27.5 - [facility] 32.1 pg [facility] LABORATORY MCHC 33.5 32.0 - [facility] 35.7 gm/dL [facility] LABORATORY Platelets 173 145 - 357 [facility] x10(3)/[facility] LABORATORY RDWSD 47.3 (H) 36.0 - [facility] 45.0 [facility] LABORATORY RDWCV 14.6 (H) 11.4 - [facility] 13.8 % [facility] LABORATORY MPV 12.1 7.6 - 12.9 [facility] LABORATORY nRBC % Auto 0.0 % [facility] LABORATORY nRBC Abs Auto 0.000 0.000 - [facility] 0.000 [facility] x10(3)/[facility] LABORATORY Specimen Anatomical Collection Method Collection Time Receive d Time (Source) Location / / Volume Laterality Blood specimen 12/05/2019 1:00 PM 020 1:13 (specimen) EDT PM EDT Resulting Agency Comment Spec In Lab Gretchen Yoon MD HEMATOLOGY ORDERABLES Performing Organization Address City/State/[place] [address] EKG 12 Lead (12/05/2019 10:52 AM EDT) Component Value Ref Range Test Analysis Performed Pathologis t Method Time At Signature Ventricular rate 72 BPM MUSE SYSTEM Atrial Rate 72 BPM MUSE SYSTEM P-R Interval 138 ms MUSE SYSTEM QRS Duration 96 ms MUSE SYSTEM Q-T Interval 396 ms MUSE SYSTEM QTC Calculated 433 ms MUSE SYSTEM (Bezet) Calculated P [place] 65 degrees MUSE SYSTEM Calculated R [place] 13 degrees MUSE SYSTEM Calculated T [place] 0 degrees MUSE SYSTEM INTERPRETATION Sinus rhythm Occasional Premature ventricular complexe s MUSE SYSTEM Possible Inferior infarct (cited on or before 29-NOV-2019) Abnormal ECG When compared with ECG of 04-DEC-2019 10:43, Sinus rhythm has replaced Atrial fibrillation Vent. rate has decreased BY ??86 BPM Confirmed by MD Ceja Daniel ([id number]) on 12/05/2019 3:55:22 PM Specimen Anatomical Collection Method Collection Time Receive d Time (Source) Location / / Volume Laterality 12/05/2019 10:52 12/05/2019 3:55 AM EDT PM EDT Paris Lagos MD ECG ORDERABLES Performing Organization Address City/State/ZIP Code Phon e Number MUSE SYSTEM Duplex Study for DVT, Bilat legs (12/05/2019 7:00 AM EDT) Component Value Ref Test Analysis Performed At [facility] Range Method Time Signature VB Text Department: Vascular Surgery Lab VASCUBASE Report Patient: [id number] (ANGEL LUIS SALINAS) CPT: 06467 ICD10: I26.99 Referring Physician: GRETCHEN YOON ?? [...] athologist Signature Magnesium 0.87 0.69 - 1.07 [facility] mmol/L [facility] LABORATORY Specimen Anatomical Collection Method Collection Time Receive d Time (Source) Location / / Volume Laterality Blood specimen 12/05/2019 4:18 AM 020 4:31 (specimen) EDT AM EDT Resulting Agency Comment Spec In Lab Gretchen Yoon MD CHEMISTRY ORDERABLES Performing Organization Address City/[facility]/ZIP [facility] [place] [address] (ABNORMAL) BMP w/fasting Glucose (12/05/2019 4:18 AM EDT) P athologist Signature Glucose 104 (H) 65 - 99 [facility] Fasting mg/dL [facility] LABORATORY Comment: [...] of Diabetes Mellitus, Position Statement from the [place] [employer]. ??Diabete s Care, Volume 33, Supplement 1, Jul 2009 BUN 21 (H) 10 - 20 mg/dL [facility] LABORATORY Creatinine 1.02 0.80 - 1.50 mg/dL [facility] LABORATORY Sodium 136 135 - 145 mmol/L [facility] LABORATORY Potassium 3.9 3.5 - 5.0 mmol/L [facility] LABORATORY Comment: Please note: ??Patients with [...] Anion Gap 12 5 - 15 mmol/L [facility] LABORATORY Calcium 8.8 8.5 - 10.5 mg/dL [facility] LABORATORY Estimated GFR 73 >=60 mL/min/1.73 m?? [facility] LABORATORY Comment: The eGFR was calculated using the CKD-EP I equation. As with all creatinine based estimates of kidney function, eGFR values calculated with the CKD-EPI equation are not accurate in patients wi th acute kidney failure, extremes of body mass or the acutely ill. [email or web address]/[facility] DUNCANnkf eGFR 84 >=60 mL/min/1.73 m?? [facility] LABORATORY Comment: The eGFR was calculated using the CKD-EP I equation. As with all creatinine based estimates of kidney function, eGFR values calculated with the CKD-EPI equation are not accurate in patients wi th acute kidney failure, extremes of body mass or the acutely ill. [email or web address]/[facility] DUNCANnkf Specimen Anatomical Collection Method Collection Time Receive d Time (Source) Location / / Volume Laterality Blood specimen 12/05/2019 4:18 AM 020 4:31 (specimen) EDT AM EDT Resulting Agency Comment Spec In Lab Gretchen Yoon MD CHEMISTRY ORDERABLES Performing Organization Address City/State/[place] [address] (ABNORMAL) Hemogram (12/05/2019 4:18 AM EDT) Analysis Performed At Patho logist Time Signature WBC 8.6 4.0 - 9.5 [facility] HOSPITAL x10(3)/[facility] LABORATORY RBC 4.28 (L) 4.58 - MELINA DOV 5.54 [facility] x10(6)/[facility] LABORATORY Hemoglobin 12.4 (L) 13.7 - [facility] gm/dL [facility] LABORATORY Hematocrit 37.3 (L) 40.5 - [facility] 48.5 % [facility] LABORATORY MCV 87.1 82.9 - [facility] 93.1 [facility] LABORATORY MCH 29.0 27.5 - [facility] 32.1 pg [facility] LABORATORY MCHC 33.2 32.0 - [facility] 35.7 gm/dL [facility] LABORATORY Platelets 163 145 - 357 [facility] x10(3)/[facility] LABORATORY RDWSD 46.4 (H) 36.0 - [facility]0 [facility] LABORATORY RDWCV 14.4 (H) 11.4 - [facility] 13.8 % [facility] LABORATORY MPV 11.7 7.6 - 12.9 [facility] LABORATORY nRBC % Auto 0.0 % [facility] LABORATORY nRBC Abs Auto 0.000 0.000 - [facility] 0.000 [facility] x10(3)/[facility] LABORATORY Specimen Anatomical Collection Method Collection Time Receive d Time (Source) Location / / Volume Laterality Blood specimen 12/05/2019 4:18 AM 020 4:31 (specimen) EDT AM EDT Resulting Agency Comment Spec In Lab Gretchen Yoon MD HEMATOLOGY ORDERABLES Performing Organization Address City/State/[place] [address] Cardiac for Morphology [...] For questions regarding this report, please contact [facility] number below. ? Narrative 12/04/2019 [...] from neck/greatest puja meter to back wall: BOTSWANAN 91, CAU 13: ??19 mm CORTES ??1, [...] from neck/greatest puja meter to back wall: [place] 91, CAU 13: 19 mm CORTES 1, [...] WBC 8.9 4.0 - 9.5 MELINA DOV x10(3)/[facility] LABORATORY RBC 4.69 4.58 - MELINA DOV 5.54 [facility] x10(6)/[facility] LABORATORY Hemoglobin 13.5 (L) 13.7 - MELINA DOV 16.5 gm/dL [facility] LABORATORY Hematocrit 41.7 40.5 - MELINA DOV 48.5 % [facility] LABORATORY MCV 88.9 82.9 - MELINA DOV 93.1 fL [facility] LABORATORY MCH 28.8 27.5 - MLEINA DOV 32.1 pg [facility] LABORATORY MCHC 32.4 32.0 - MELINA DOV 35.7 gm/dL [facility] LABORATORY Platelets 196 145 - 357 MELINA DOV x10(3)/[facility] LABORATORY RDWSD 46.7 (H) 36.0 - MELINA MONAE 45.0 [facility] LABORATORY RDWCV 14.5 (H) 11.4 - MELINA MONAE 13.8 % [facility] LABORATORY MPV 12.1 7.6 - 12.9 MELINA MONAE [facility] LABORATORY nRBC % Auto 0.0 % [facility] LABORATORY nRBC Abs Auto 0.000 0.000 - MELINA MONAE 0.000 [facility] x10(3)/[facility] LABORATORY Specimen Anatomical Collection Method Collection Time Receive d Time (Source) Location / / Volume Laterality Blood specimen 12/04/2019 12:55 0 1:06 (specimen) PM EDT PM EDT Resulting Agency Comment Spec In Lab Gretchen Yoon MD HEMATOLOGY ORDERABLES Performing Organization Address City/[facility]/ZIP [place] [address] EKG 12 Lead (12/04/2019 10:43 AM EDT) Component Value Ref Range Test Analysis Performed Pathologis t Method Time At Signature Ventricular rate 158 BPM MUSE SYSTEM Atrial Rate 102 BPM MUSE SYSTEM QRS Duration 92 ms MUSE SYSTEM Q-T Interval 294 ms MUSE SYSTEM QTC Calculated 476 ms MUSE SYSTEM (Bezet) Calculated R [place] 17 degrees MUSE SYSTEM Calculated T [place] 90 degrees MUSE SYSTEM INTERPRETATION Atrial fibrillation with rapid ventricular response MUSE SYSTEM Possible Inferior infarct (cited on or before 29-NOV-2019) Abnormal ECG When compared with ECG of 30-NOV-2019 21:07, Atrial fibrillation has replaced Sinus rhythm Vent. rate has increased BY ??65 BPM Confirmed by MD Brenna, Faustino ([id number]) on 12/05/2019 8:59:44 AM Specimen Anatomical Collection Method Collection Time Receive d Time (Source) Location / / Volume Laterality 12/04/2019 10:43 12/05/2019 8:59 AM EDT AM EDT Gretchen Yoon MD ECG ORDERABLES Performing Organization Address City/State/ZIP Code Phon e Number MUSE SYSTEM (ABNORMAL) Magnesium (12/04/2019 4:28 AM EDT) P athologist Signature Magnesium 1.17 (H) 0.69 - 1.07 [facility] mmol/L [facility] LABORATORY Specimen Anatomical Collection Method Collection Time Receive d Time (Source) Location / / Volume Laterality Blood specimen 12/04/2019 4:28 AM 020 4:40 (specimen) EDT AM EDT Resulting Agency Comment Spec In Lab Gretchen Yoon MD CHEMISTRY ORDERABLES Performing Organization Address City/State/[place] [address] (ABNORMAL) BMP w/fasting Glucose (12/04/2019 4:28 AM EDT) athologist Signature Glucose 108 (H) 65 - 99 [facility] Fasting mg/dL [facility] LABORATORY Comment: [...] of Diabetes Mellitus, Position Statement from the [employer]. ??Diabete s Care, Volume 33, Supplement 1, Jul 2009 BUN 19 10 - 20 mg/dL [facility] LABORATORY Creatinine 0.89 0.80 - 1.50 mg/dL [facility] LABORATORY Sodium 135 135 - 145 mmol/L [facility] LABORATORY Potassium 4.2 3.5 - 5.0 mmol/L [facility] LABORATORY Comment: Please note: ??Patients with [...] Anion Gap 12 5 - 15 mmol/L [facility] LABORATORY Calcium 8.5 8.5 - 10.5 mg/dL [facility] LABORATORY Estimated GFR 85 >=60 mL/min/1.73 m?? [facility] LABORATORY Comment: The eGFR was calculated using the CKD-EP I equation. As with all creatinine based estimates of kidney function, eGFR values calculated with the CKD-EPI equation are not accurate in patients wi th acute kidney failure, extremes of body mass or the acutely ill. http://[employer]/[facility]ANnkf eGFR 98 >=60 mL/min/1.73 m?? [facility] LABORATORY Comment: The eGFR was calculated using the CKD-EP I equation. As with all creatinine based estimates of kidney function, eGFR values calculated with the CKD-EPI equation are not accurate in patients wi th acute kidney failure, extremes of body mass or the acutely ill. http://[employer]/[facility]ANnkf Specimen Anatomical Collection Method Collection Time Receive d Time (Source) Location / / Volume Laterality Blood specimen 12/04/2019 4:28 AM 020 4:40 (specimen) EDT AM EDT Resulting Agency Comment Spec In Lab Gretchen Yoon MD CHEMISTRY ORDERABLES Performing Organization Address City/State/[place] [address] (ABNORMAL) Hemogram (12/04/2019 4:28 AM EDT) Analysis Performed At Patho logist Time Signature WBC 7.8 4.0 - 9.5 [facility] x10(3)/[facility] LABORATORY RBC 4.10 (L) 4.58 - [facility] 5.54 [facility] x10(6)/[facility] LABORATORY Hemoglobin 12.0 (L) 13.7 - [facility] 16.5 gm/dL [facility] LABORATORY Hematocrit 36.5 (L) 40.5 - [facility] 48.5 % [facility] LABORATORY MCV 89.0 82.9 - [facility] 93.1 fL [facility] LABORATORY MCH 29.3 27.5 - MELINA MONAE 32.1 pg [facility] LABORATORY MCHC 32.9 32.0 - MELINA MONAE 35.7 gm/dL [facility] LABORATORY Platelets 151 145 - 357 MELINA VILLANUEVACK x10(3)/[facility] LABORATORY RDWSD 46.9 (H) 36.0 - MELINA MONAE 45.0 [facility] LABORATORY RDWCV 14.4 (H) 11.4 - MELINA MONAE 13.8 % [facility] LABORATORY MPV 12.2 7.6 - 12.9 MELINA MONAE fL [facility] LABORATORY nRBC % Auto 0.0 % [facility] LABORATORY nRBC Abs Auto 0.000 0.000 - MELINA MONAE 0.000 [facility] x10(3)/[facility] LABORATORY Specimen Anatomical Collection Method Collection Time Receive d Time (Source) Location / / Volume Laterality Blood specimen 12/04/2019 4:28 AM 020 4:40 (specimen) EDT AM EDT Resulting Agency Comment Spec In Lab Gretchen Yoon MD HEMATOLOGY ORDERABLES Performing Organization Address City/[facility]/ZIP Code Phon e Number [address] Potassium (12/03/2019 7:55 PM EDT) athologist Signature Potassium 3.9 3.5 - 5.0 [facility]/L [facility] LABORATORY Comment: Please [...] Yoon MD CHEMISTRY ORDERABLES Performing Organization Address City/[facility]/ZIP [facility] Phon e Number [address] Potassium (12/03/2019 1:57 PM EDT) athologist Signature Potassium 3.7 3.5 - 5.0 [facility] mmol/L [facility] LABORATORY Comment: Please [...] Organization Address City/State/[place] [address] (ABNORMAL) Hemogram (12/03/2019 1:57 PM EDT) Analysis Performed At Patho logist Time Signature WBC 8.8 4.0 - 9.5 MELINA DOV x10(3)/[facility] LABORATORY RBC 4.27 (L) 4.58 - MELINA DVO 5.54 [facility] x10(6)/[facility] LABORATORY Hemoglobin 12.5 (L) 13.7 - MEL[place] DOV 16.5 gm/dL [facility] LABORATORY Hematocrit 37.5 (L) 40.5 - M[place] DOV 48.5 % [facility] LABORATORY MCV 87.8 82.9 - MEL[place] DOV 93.1 [facility] LABORATORY MCH 29.3 27.5 - MELINA DOV 32.1 pg [facility] LABORATORY MCHC 33.3 32.0 - MELINA DOV 35.7 gm/dL [facility] LABORATORY Platelets 158 145 - 357 MELINA DOV x10(3)/[facility] LABORATORY RDWSD 46.9 (H) 36.0 - MELINA DOV 45.0 [facility] LABORATORY RDWCV 14.5 (H) 11.4 - MELINA DOV 13.8 % [facility] LABORATORY MPV 12.2 7.6 - 12.9 MELINA DOV [facility] LABORATORY nRBC % Auto 0.0 % [facility] LABORATORY nRBC Abs Auto 0.000 0.000 - [facility] 0.000 [facility] x10(3[facility] LABORATORY Specimen Anatomical Collection Method Collection Time Receive d Time (Source) Location / / Volume Laterality Blood specimen 12/03/2019 1:57 PM 020 2:21 (specimen) EDT PM EDT Resulting Agency Comment Spec In Lab Gretchen Yoon MD HEMATOLOGY ORDERABLES Performing Organization Address City/State/ZIP Code Phon e Number [address] Magnesium (12/03/2019 4:02 AM EDT) P athologist Signature Magnesium 0.79 0.69 - 1.07 [facility] mmol/L [facility] LABORATORY Specimen Anatomical Collection Method Collection Time Receive d Time (Source) Location / / Volume Laterality Blood specimen 12/03/2019 4:02 AM 020 4:16 (specimen) EDT AM EDT Resulting Agency Comment Spec In Lab Gretchen Yoon MD CHEMISTRY ORDERABLES Performing Organization Address City/State/Z[place] [address] (ABNORMAL) BMP w/fasting Glucose (12/03/2019 4:02 AM EDT) P athologist Signature Glucose 100 (H) 65 - 99 [facility] Fasting mg/dL [facility] LABORATORY Comment: [...] of Diabetes Mellitus, Position Statement from the [employer]. ??Diabete s Care, Volume 33, Supplement 1, Jul 2009 BUN 17 10 - 20 mg/dL [facility] LABORATORY Creatinine 0.95 0.80 - 1.50 mg/dL [facility] LABORATORY Sodium 136 135 - 145 mmol/L [facility] LABORATORY Potassium 3.4 (L) 3.5 - 5.0 mmol/L [facility] LABORATORY Comment: Please note: ??Patients with [...] Anion Gap 15 5 - 15 mmol/L [facility] LABORATORY Calcium 8.3 (L) 8.5 - 10.5 mg/dL [facility] LABORATORY Estimated GFR 79 >=60 mL/min/1.73 m?? [facility] LABORATORY Comment: The eGFR was calculated using the CKD-EP I equation. As with all creatinine based estimates of kidney function, eGFR values calculated with the CKD-EPI equation are not accurate in patients wi th acute kidney failure, extremes of body mass or the acutely ill. http://[employer]/[facility]UNCANnkf eGFR 92 >=60 mL/min/1.73 m?? [facility] LABORATORY Comment: The eGFR was calculated using the CKD-EP I equation. As with all creatinine based estimates of kidney function, eGFR values calculated with the CKD-EPI equation are not accurate in patients wi th acute kidney failure, extremes of body mass or the acutely ill. http://[employer]/DHnkf Specimen Anatomical Collection Method Collection Time Receive d Time (Source) Location / / Volume Laterality Blood specimen 12/03/2019 4:02 AM 020 4:16 (specimen) EDT AM EDT Resulting Agency Comment Spec In Lab Gretchen Yoon MD CHEMISTRY ORDERABLES Performing Organization Address City/State/[place] [address] (ABNORMAL) Hemogram (12/03/2019 4:02 AM EDT) Analysis Performed At Patho logist Time Signature WBC 9.1 4.0 - 9.5 [facility] x10(3)/[facility] LABORATORY RBC 4.01 (L) 4.58 - MELINA MARSHDOV 5.54 [facility] x10(6)/[facility] LABORATORY Hemoglobin 11.8 (L) 13.7 - [facility] 16.[facility] gm/dL [facility] LABORATORY Hematocrit 35.6 (L) 40.5 - [facility] 48.5 % [facility] LABORATORY MCV 88.8 82.9 - [facility] 93.1 [facility] LABORATORY MCH 29.4 27.5 - [facility] 32.1 pg [facility] LABORATORY MCHC 33.1 32.0 - [facility] 35.7 gm/dL [facility] LABORATORY Platelets 130 (L) 145 - 357 [facility] x10(3)/[facility] LABORATORY RDWSD 46.6 (H) 36.0 - [facility] 45.0 [facility] LABORATORY RDWCV 14.4 (H) 11.4 - [facility] 13.8 % [facility] LABORATORY MPV 12.4 7.6 - 12.9 [facility] LABORATORY nRBC % Auto 0.0 % [facility] LABORATORY nRBC Abs Auto 0.000 0.000 - [facility] 0.000 [facility] x10(3)/[facility] LABORATORY Specimen Anatomical Collection Method Collection Time Receive d Time (Source) Location / / Volume Laterality Blood specimen 12/03/2019 4:02 AM 020 4:16 (specimen) EDT AM EDT Resulting Agency Comment Spec In Lab Gretchen Yoon MD HEMATOLOGY ORDERABLES Performing Organization Address City/State/[place] [address] XR Chest One View [...] Signature WBC 10.6 (H) 4.0 - 9.5 [facility] LABORATORY RBC 4.00 (L) 4.58 - [facility] DOV 5.54 [facility] x10(6)/[facility] LABORATORY Hemoglobin 11.9 (L) 13.7 - [facility] 16.5 gm/dL [facility] LABORATORY Hematocrit 35.7 (L) 40.5 - [facility] 48.5 % [facility] LABORATORY MCV 89.3 82.9 - [facility] 93.1 [facility] LABORATORY MCH 29.8 27.5 - [facility] 32.1 pg [facility] LABORATORY MCHC 33.3 32.0 - [facility] 35.7 gm/dL [facility] LABORATORY Platelets 120 (L) 145 - 357 [facility] x10(3)/[facility] LABORATORY RDWSD 47.5 (H) 36.0 - [facility] 45.0 [facility] LABORATORY RDWCV 14.6 (H) 11.4 - [facility] 13.8 % [facility] LABORATORY MPV 12.0 7.6 - 12.9 [facility] LABORATORY nRBC % Auto 0.0 % [facility] LABORATORY nRBC Abs Auto 0.000 0.000 - [facility] 0.000 [facility] x10(3)/[facility] LABORATORY Specimen Anatomical Collection Method Collection Time Receive d Time (Source) Location / / Volume Laterality Blood specimen 12/02/2019 12:50 0 1:22 (specimen) PM EDT PM EDT Resulting Agency Comment Spec In Lab Gretchen Yoon MD HEMATOLOGY ORDERABLES Performing Organization Address City/State/[place] [address] Blue Tube HOLD (12/02/2019 4:55 AM EDT) P athologist Signature Blue Hold Sample in [facility] lab. [facility] LABORATORY Specimen Anatomical Collection Method Collection Time Receive d Time (Source) Location / / Volume Laterality Blood specimen Venous Draw / 12/02/2019 4:55 AM 2019 5:03 (specimen) Unknown EDT AM EDT Darrell Glasgow MD HEMATOLOGY ORDERABLES Performing Organization Address City/State/ZIP Code Phon e Number [address] Magnesium (12/02/2019 4:55 AM EDT) athologist Signature Magnesium 0.85 0.69 - 1.07 [facility] mmol/L [facility] LABORATORY Specimen Anatomical Collection Method Collection Time Receive d Time (Source) Location / / Volume Laterality Blood specimen 12/02/2019 4:55 AM 020 5:02 (specimen) EDT AM EDT Resulting Agency Comment Spec In Lab Gretchen Yoon MD CHEMISTRY ORDERABLES Performing Organization Address City/State/ZIP [place] [address] (ABNORMAL) BMP w/fasting Glucose (12/02/2019 4:55 AM EDT) athologist Signature Glucose 114 (H) 65 - 99 [facility] Fasting mg/dL [facility] LABORATORY Comment: [...] of Diabetes Mellitus, Position Statement from the [employer]. ??Diabete s Care, Volume 33, Supplement 1, Jul 2009 BUN 13 10 - 20 mg/dL [facility] LABORATORY Creatinine 0.93 0.80 - 1.50 mg/dL [facility] LABORATORY Sodium 135 135 - 145 mmol/L [facility] LABORATORY Potassium 3.7 3.5 - 5.0 mmol/L [facility] LABORATORY Comment: Please note: ??Patients with [...] Anion Gap 12 5 - 15 mmol/L [facility] LABORATORY Calcium 8.1 (L) 8.5 - 10.5 mg/dL [facility] LABORATORY Estimated GFR 81 >=60 mL/min/1.73 m?? [facility] LABORATORY Comment: The eGFR was calculated using the CKD-EP I equation. As with all creatinine based estimates of kidney function, eGFR values calculated with the CKD-EPI equation are not accurate in patients wi th acute kidney failure, extremes of body mass or the acutely ill. http://[employer]/[facility]UNCANnkf eGFR 94 >=60 mL/min/1.73 m?? [facility] LABORATORY Comment: The eGFR was calculated using the CKD-EP I equation. As with all creatinine based estimates of kidney function, eGFR values calculated with the CKD-EPI equation are not accurate in patients wi th acute kidney failure, extremes of body mass or the acutely ill. http://[employer]/DHMCnkf Specimen Anatomical Collection Method Collection Time Receive d Time (Source) Location / / Volume Laterality Blood specimen 12/02/2019 4:55 AM 020 5:02 (specimen) EDT AM EDT Resulting Agency Comment Spec In Lab Gretchen Yoon MD CHEMISTRY ORDERABLES Performing Organization Address City/State/[place] [address] (ABNORMAL) Hemogram (12/02/2019 4:55 AM EDT) Analysis Performed At Patho logist Time Signature WBC 9.3 4.0 - 9.5 [facility] LABORATORY RBC 3.71 (L) 4.58 - MELINA DOV 5.54 [facility] x10(6)/[facility] LABORATORY Hemoglobin 10.8 (L) 13.7 - [facility] 16.[facility] gm/dL [facility] LABORATORY Hematocrit 33.1 (L) 40.5 - [facility] 48.5 % [facility] LABORATORY MCV 89.2 82.9 - [facility] 93.1 [facility] LABORATORY MCH 29.1 27.5 - [facility] 32.1 pg [facility] LABORATORY MCHC 32.6 32.0 - [facility] 35.7 gm/dL [facility] LABORATORY Platelets 93 (L) 145 - 357 [facility] x10(3)/[facility] LABORATORY RDWSD 47.1 (H) 36.0 - [facility] 45.0 [facility] LABORATORY RDWCV 14.6 (H) 11.4 - [facility] 13.8 % [facility] LABORATORY MPV 11.7 7.6 - 12.9 [facility] LABORATORY nRBC % Auto 0.0 % [facility] LABORATORY nRBC Abs Auto 0.000 0.000 - [facility] 0[facility] x10(3)/[facility] LABORATORY Specimen Anatomical Collection Method Collection Time Receive d Time (Source) Location / / Volume Laterality Blood specimen 12/02/2019 4:55 AM 020 5:02 (specimen) EDT AM EDT Resulting Agency Comment Spec In Lab Gretchen Yoon MD HEMATOLOGY ORDERABLES Performing Organization Address City/State/[place] [address] Transfuse 1 unit platelets, [...] For questions regarding this report, please contact [facility] number below. ? Electronically signed by: Angel Luis Barboza MD, [facility] ([phone]), at 12/01/2019 8:02 PM Narrative 12/01/2019 8:02 [...] For questions regarding this report, please contact [facility] number below. Electronically signed by: Angel Luis Barboza MD, [facility] ([phone]), at 12/01/2019 8:02 PM Gretchen Yoon MD IMG MRI ORDERABLES Prepare Platelets, Apheresis (12/01/2019 6:20 PM EDT) P athologist Signature Dispensed? Yes [facility] LABORATORY Specimen Anatomical Collection Method Collection Time Receive d Time (Source) Location / / Volume Laterality Blood specimen 12/01/2019 6:20 PM 020 6:18 (specimen) EDT PM EDT Gretchen Yoon MD BLOOD BANK ORDERABLES Performing Organization Address City/[facility]/[place] [address] Duplex for DVT, Arm, Unilat (12/01/2019 5:08 PM EDT) Component Value Ref Test Analysis Performed At Patholo gist Range Method Time Signature VB Text Department: Vascular Surgery Lab VASCUBASE Report Patient: [id number] (ANGEL LUIS SALINAS) CPT: 88778 ICD10: R60.0 Referring Physician: GRETCHEN YOON ?? [...] For questions regarding this report, please contact [facility] number below. ? Narrative 12/01/2019 3:53 PM EDT EXAMINATION: CT HEAD WO CONTRAST (GENERIC) CLINICAL HISTORY: Headache, intracranial hemorrhage suspected Serial CT scan: please assess for propag ation of known ICH noted on prior Head CT/imaging. TECHNIQUE: CT head performed without intravenous co ntrast administration. COMPARISON: Head CT 11/30/2019. CT angiogram of the [place] 11/01. FINDINGS: Ventricles are normal in size. Basal cis terns are patent. Unchanged hyperdense 2.3 x 0.7 x 0.6 cm tubular hemorrhage projecting along the course of the left optic tract (axial se [facility] 2 image 16), consistent with intraparenchymal hematoma. [...] Head CT 11/30/2019. CT angiogram of the [place] 11/01. FINDINGS: Ventricles are normal [...] Scan, Peripheral Blood (12/01/2019 12:51 PM EDT) [facility] Method Time Signature Plat Estimate Decreased [facility] LABORATORY RBC Morphology Normal [facility] Giant Less than 1 /HPF [facility] Platelets [facility] LABORATORY Specimen Anatomical Collection Method Collection Time Receive d Time (Source) Location / / Volume Laterality Blood specimen 12/01/2019 12:51 0 1:05 (specimen) PM EDT PM EDT Resulting Agency Comment Spec In Lab Riki Stevens MD HEMATOLOGY ORDERABLES Performing Organization Address City/State/Z[place] [address] (ABNORMAL) Differential, Automated (12/01/2019 12:51 PM EDT) [facility] Method Time Signature Neutrophils % 74.9 % [facility] Neutr Abs (ANC) 6.34 (H) 1.70 - [facility] 6.10 [facility] x10(3)/[facility] LABORATORY Lymphocytes % 11.4 % [facility] Lymphocytes Abs 1.0 0.9 - 3.2 [facility] x10(3)/[facility] LABORATORY Monocytes % 12.4 % [facility] Monocyte Abs 1.0 (H) 0.3 - 0.9 [facility] x10(3)/[facility] LABORATORY Eosinophils % 0.4 % [facility] Eosinophils Abs 0.0 0.0 - 0.4 [facility] x10(3)/[facility] LABORATORY Basophils % 0.4 % [facility] Basophils Abs 0.0 0.0 - 0.1 [facility] x10(3)/[facility] LABORATORY Immature Gran % 0.50 % [facility] Comment: Immature granulocytes(IG's)percentage an d absolute count will include metamyelocytes, myelocytes, and promyelo cytes. Blood smears from CBCs yielding IG's will be scanned manually for ana nagy. If this scan disagrees with the automated IG or if promyelocytes are not ed, a manual differential will be performed. Pita Gran Abs 0.04 0.00 - 0.04 x10(3)/[facility] Specimen Anatomical Collection Method Collection Time Receive d Time (Source) Location / / Volume Laterality Blood specimen 12/01/2019 12:51 0 1:05 (specimen) PM EDT PM EDT Resulting Agency Comment Spec In Lab Riki Stevens MD HEMATOLOGY ORDERABLES Performing Organization Address City/State/ZIP Code Phon e Number [place] [id number] HOSP[address] LAB[address]ATORY [address] (ABNORMAL) Hemogram (12/01/2019 12:51 PM EDT) Analysis Performed At Patho logist Time Signature WBC 8.4 4.0 - 9.5 [facility] LAB[facility]ATORY RBC 3.69 (L) 4.58 - [facility] 5[facility]54 [facility] x10(6)/[facility] LABORATORY Hemoglobin 10.8 (L) 13.7 - [facility] 16.5 gm/dL [facility] Hematocrit 32.4 (L) 40.5 - [facility] 48.5 % [facility] MCV 87.8 82.9 - [facility] 93.1 [facility] LABORATORY MCH 29.3 27.5 - MELINA DOV 32.1 pg [facility] MCHC 33.3 32.0 - [facility] DOV 35.7 gm/dL [facility] Platelets 72 (L) 145 - 357 [facility] LABORATORY RDWSD 47.2 (H) 36.0 - [facility] 45.0 [facility] LABORATORY RDWCV 14.6 (H) 11.4 - [facility] DOV 13.8 % [facility] MPV 12.2 7.6 - 12.9 [facility] LABORATORY nRBC % Auto 0.0 % [facility] nRBC Abs Auto 0.000 0.000 - [facility] 0.000 [facility] x10(3)/[facility] LABORATORY Specimen Anatomical Collection Method Collection Time Receive d Time (Source) Location / / Volume Laterality Blood specimen 12/01/2019 12:51 0 1:05 (specimen) PM EDT PM EDT Resulting Agency Comment Spec In Lab Riki Stevens MD HEMATOLOGY ORDERABLES Performing Organization Address City/State/ZIP Code Phon e Number [address] (ABNORMAL) Coox2 (12/01/2019 11:42 AM EDT) Analysis Performed At Patho logist Time Signature pO2 Coox 30 mmHg [facility] Hgb Blood Gas 11.6 (L) 13.7 - [facility] 16.5 gm/dL [facility] O2HB Coox 60.8 % [facility] COHB Coox 0.6 % [facility] Comment: Nonsmokers: 0.5-1.5% COHB Smokers: Variable, but usually less than 10% Toxic: 20-30% COHB Lethal: Greater than 60% COHB METHB Coox 0.6 <=1.5 % [facility] LABORATORY Source Coox Mixed Venous [facility] Specimen Anatomical Collection Method Collection Time Receive d Time (Source) Location / / Volume Laterality Blood specimen 12/01/2019 11:42 0 (specimen) AM EDT 11:42 AM EDT Gretchen Yoon MD CHEMISTRY ORDERABLES Performing Organization Address City/State/[place] [address] Sedimentation rate (12/01/2019 3:55 AM EDT) P athologist Signature Sed Rate 25 3 - 46 [facility] mm/hr [facility] Comment: Effective [...] Winn MD HEMATOLOGY ORDERABLES Performing Organization Address City/[facility]/[place]IP [place] [address] (ABNORMAL) CRP, acute inflammation [...] Winn MD CHEMISTRY ORDERABLES Performing Organization Address City/[facility]/ZIP Code Phon e Number [address] ABORH Recheck Status (12/01/2019 3:55 AM EDT) [facility] Method Time Signature ABORH Recheck Order Placed [facility] LABORATORY ABORH Type Complete [facility] LABORATORY Specimen Anatomical Collection Method Collection Time Receive d Time (Source) Location / / Volume Laterality Blood specimen 12/01/2019 3:55 AM 020 4:15 (specimen) EDT AM EDT Resulting Agency Comment Spec In Lab Lewis Gee MD BLOOD BANK ORDERABLES Performing Organization Address City/[facility]/[place] [address] Antibody screen (12/01/2019 3:55 AM EDT) Patholo gist Method Time Signature Ab Screen Negative [facility] LABORATORY Expires at 12/04/2019 [facility] [id number] on: [facility] Specimen Anatomical Collection Method Collection Time Receive d Time (Source) Location / / Volume Laterality Blood specimen 12/01/2019 3:55 AM 020 4:15 (specimen) EDT AM EDT Resulting Agency Comment Spec In Lab Lewis Gee MD BLOOD BANK ORDERABLES Performing Organization Address City/State/[place] [address] ABO/Rh Typing (12/01/2019 3:55 AM EDT) athologist Signature ABORh Type AB Pos [facility] Specimen Anatomical Collection Method Collection Time Receive d Time (Source) Location / / Volume Laterality Blood specimen 12/01/2019 3:55 AM 020 4:15 (specimen) EDT AM EDT Resulting Agency Comment Spec In Lab Lewis Gee MD BLOOD BANK ORDERABLES Performing Organization Address City/[facility] [place] [address] (ABNORMAL) Troponin (12/01/2019 3:55 AM EDT) athologist Signature Troponin-T 4.35 (H) 0.00 - [facility] 0.00 ng/mL [facility] Comment: result rechecked-slw The 99th percentile for Troponin T is le ss than 0.01 ng/mL, any detectable cTnT concentration using this assay should be considered elevated. According to the third universal definit ion of myocardial infarction the following criteria with a clinical prese ntation consistent with acute myocardial ischemia meets the diagnosis for a myocardial infarction (AK). Detection of a rise and/or fall of [...] additional sample may be indicated. Reference: Third [place] Definition of Myocardial Infarction. Journal of the [place] [employer] 2012;60:1581-98 Specimen Anatomical Collection Method Collection Time Receive d Time (Source) Location / / Volume Laterality Blood specimen 12/01/2019 3:55 AM 020 4:00 (specimen) EDT AM EDT Resulting Agency Comment Spec In Lab Gretchen Yoon MD CHEMISTRY ORDERABLES Performing Organization Address City/State/ZIP Code Phon e Number [address] Magnesium (12/01/2019 3:55 AM EDT) P athologist Signature Magnesium 0.96 0.69 - 1.07 [facility] mmol/L [facility] Specimen Anatomical Collection Method Collection Time Receive d Time (Source) Location / / Volume Laterality Blood specimen 12/01/2019 3:55 AM 020 4:00 (specimen) EDT AM EDT Resulting Agency Comment Spec In Lab Gretchen Yoon MD CHEMISTRY ORDERABLES Performing Organization Address City/[facility]/[place] [address] (ABNORMAL) BMP w/fasting Glucose (12/01/2019 3:55 AM EDT) P athologist Signature Glucose 148 (H) 65 - 99 [facility] Fasting mg/dL [facility] Comment: [...] of Diabetes Mellitus, Position Statement from the [place] [employer]. ??Diabete s Care, Volume 33, Supplement 1, Jul 2009 BUN 11 10 - 20 mg/dL [facility] Creatinine 0.96 0.80 - 1.50 mg/dL [facility] Sodium 132 (L) 135 - 145 mmol/L [facility] Potassium 4.0 3.5 - 5.0 mmol/L [facility] Comment: Please note: ??Patients with [...] Anion Gap 10 5 - 15 mmol/L [facility] Calcium 7.6 (L) 8.5 - 10.5 mg/dL [facility] Estimated GFR 78 >=60 mL/min/1.73 m?? [facility] Comment: The eGFR was calculated using the CKD-EP I equation. As with all creatinine based estimates of kidney function, eGFR values calculated with the CKD-EPI equation are not accurate in patients wi th acute kidney failure, extremes of body mass or the acutely ill. [email or web address] eGFR 91 >=60 mL/min/1.73 m?? [facility] Comment: The eGFR was calculated using the CKD-EP I equation. As with all creatinine based estimates of kidney function, eGFR values calculated with the CKD-EPI equation are not accurate in patients wi th acute kidney failure, extremes of body mass or the acutely ill. [email or web address] Specimen Anatomical Collection Method Collection Time Receive d Time (Source) Location / / Volume Laterality Blood specimen 12/01/2019 3:55 AM 020 4:00 (specimen) EDT AM EDT Resulting Agency Comment Spec In Lab Gretchen Yoon MD CHEMISTRY ORDERABLES Performing Organization Address City/State/[place] [address] (ABNORMAL) Hemogram (12/01/2019 3:55 AM EDT) Analysis Performed At Patho [facility] Time Signature WBC 11.0 (H) 4.0 - 9.5 [facility] x10(3)/[facility] LABORATORY RBC 3.46 (L) 4.58 - [facility] 5.54 [facility] x10(6)/[facility] LABORATORY Hemoglobin 10.2 (L) 13.7 - [facility] 16.5 gm/dL [facility] Hematocrit 31.2 (L) 40.5 - [facility] 48.5 % [facility] MCV 90.2 82.9 - [facility] 93.1 [facility] LABORATORY MCH 29.5 27.5 - [facility] 32.1 pg [facility] MCHC 32.7 32.0 - [facility] 35.7 gm/dL [facility] Platelets 98 (L) 145 - 357 [facility] x10(3)/[facility] LABORATORY RDWSD 47.9 (H) 36.0 - [facility] 45.0 [facility] LABORATORY RDWCV 14.6 (H) 11.4 - [facility] 13.8 % [facility] MPV 12.3 7.6 - 12.9 [facility] LABORATORY nRBC % Auto 0.0 % [facility] nRBC Abs Auto 0.000 0.000 - [facility] 0.000 [facility] x10(3)/[facility] LABORATORY Specimen Anatomical Collection Method Collection Time Receive d Time (Source) Location / / Volume Laterality Blood specimen 12/01/2019 3:55 AM 020 4:00 (specimen) EDT AM EDT Resulting Agency Comment Spec In Lab Gretchen Yoon MD HEMATOLOGY ORDERABLES Performing Organization Address City/State/[place] [address] (ABNORMAL) BLOOD GAS 2 ARTERIAL (11/30/2019 10:39 PM EDT) Analysis Performed At [facility] Time Signature pH Art 7.45 7.35 - [facility] 7.45 [facility] pCO2 Art 23 (L) 35 - 45 [facility] LABORATORY pO2 Art 76 (L) 85 - 104 [facility] LABORATORY HCO3 Art 15.3 (L) 20.0 - [facility] 26.0 [facility] mmol/[facility] LABORATORY BE Art -8.7 (L) -3.0 - 3.0 [facility] mmol/L [facility] Hgb Blood Gas 11.7 (L) 13.7 - [facility] 16.5 gm/dL [facility] O2HB Art 94.2 94.0 - [facility] 97.0 % [facility] COHB Art 0.5 % [facility] Comment: Nonsmokers: 0.5-1.5% COHB Smokers: Variable, but usually less than 10% Toxic: 20-30% COHB Lethal: Greater than 60% COHB METHB Art 0.6 <=1.5 % [facility] Na Whole Blood 133 (L) 135 - 145 mmol/L [facility] K Whole Blood 3.8 3.5 - 5.0 mmol/L [facility] Comment: Please note: Patients with WBC >100,000 may have falsely elevated Potassium levels. Contact the Clinical Chemistry L aboratory if there are any questions. ICa Whole Blood 1.10 (L) 1.15 - 1.33 mmol/L [facility] Comment: Note: ??Total bilirubin higher than 20 m g/dL may lead to falsely low ionized calcium. CL Whole Blood 109 (H) 98 - 107 mmol/L [facility] Gluc Whole Bld 120 65 - 199 mg/dL [facility] Comment: Diabetes: >=200 mg/dL plus symp toms. Lactate WB 0.8 0.5 - 2.2 mmol/L [facility] FIO2 Art 100 % [facility] PF Ratio Art 76 [facility] Specimen Anatomical Collection Method Collection Time Receive d Time (Source) Location / / Volume Laterality Blood specimen 11/30/2019 10:39 0 (specimen) PM EDT 10:39 PM EDT Gretchen Yoon MD CHEMISTRY ORDERABLES Performing Organization Address City/State/[place] [address] EKG 12 Lead (11/30/2019 [...] (Bezet) Calculated P 12 degrees [facility] [place] Calculated R 19 degrees [facility]USE [facility] [place] Calculated T -47 degrees MUSE [facility] [place] INTERPRETATION Sinus rhythm with Premature supraventricular complexes [...] Yoon MD ECG ORDERABLES Performing Organization Address City/[facility]/ZIP Code Phon e Number MUSE SYSTEM (ABNORMAL) Urinalysis Microscopic Exam (11/30/2019 8:40 PM EDT) P athologist Signature RBC UA 27 (H) 0 - 3 /HPF [facility] WBC UA 4 (H) 0 - 3 /HPF [facility] Hyaline Cast 3 (H) 0 - 2 /LPF [facility] LABOR[facility]ORY Specimen (Source) Anatomical Collection Method Collection Time Re ceived Time Location / / Volume Laterality Urine specimen 11/30/2019 8:40 11/30/2019 obtained via PM EDT 10:51 PM EDT indwelling urinary catheter (specimen) Resulting Agency Comment Spec In Lab Rossy Winn MD URINE ORDERABLES Performing Organization Address City/[facility]/ZIP Code Phon e Number [place] [phone] HOS[address] LAB[address]ORY Drive (ABNORMAL) Urinalysis with reflex Culture (11/30/2019 8:40 PM EDT) Patholo gist Method Time Signature Glucose UA Negative Negative [facility] mg/dL [facility] Protein UA Negative Negative [facility] mg/dL [facility] Bilirubin UA Negative Negative [facility] mg/dL [facility] Comment: Clinical correlation required for positi ve Urine Bilirubin results as false positive may occur with some drugs and d rug related products. If a false positive is suspected a serum total bili morales should be considered if clinically indicated. Urobilinogen UA Normal Normal mg/dL [facility] pH UA 5.5 5.0 - 8.0 [facility] Blood UA Moderate (A) Negative mg/dL [facility] Ketones UA 40 (A) Negative mg/dL [facility] Nitrite UA Negative Negative [facility] Leukocytes UA Trace (A) Negative [facility] LABORATORY Appearance UA Clear Clear [facility] Spec [place] UA 1.026 1.006 - 1.030 [facility] Color UA Yellow Yellow [facility] Culture Reflexed No [facility] Specimen (Source) Anatomical Collection Method Collection Time Re ceived Time Location / / Volume Laterality Urine specimen 11/30/2019 8:40 11/30/2019 obtained via PM EDT 10:51 PM EDT indwelling urinary catheter (specimen) Resulting Agency Comment Spec In Lab Gretchen Yoon MD URINE ORDERABLES Performing Organization Address City/State/[place] [address] (ABNORMAL) pro-Brain Natriuretic Peptide (11/30/2019 8:30 PM EDT) P athologist Signature ProBNP 2,802 (H) <=125 [facility] pg/mL [facility] Specimen Anatomical Collection Method Collection Time Receive d Time (Source) Location / / Volume Laterality Blood specimen Venous Draw / 11/30/2019 8:30 PM 2019 8:36 (specimen) Unknown EDT PM EDT Resulting Agency Comment Spec In Lab Rossy Winn MD CHEMISTRY ORDERABLES Performing Organization Address City/State/ZIP Code Phon e Number [place] [phone]OS[address] (ABNORMAL) Troponin (11/30/2019 8:30 [...] meets the diagnosis for a myocardial infarction (AK). Detection of a rise and/or fall of [...] additional sample may be indicated. Reference: Third [place] Definition of Myocardial Infarction. Journal of the [place] [employer] 2012;60:1581-98 Specimen Anatomical Collection Method Collection Time Receive d Time (Source) Location / / Volume Laterality Blood specimen Venous Draw / 11/30/2019 8:30 PM 2019 8:36 (specimen) Unknown EDT PM EDT Resulting Agency Comment Spec In Lab Rossy Winn MD CHEMISTRY ORDERABLES Performing Organization Address City/State/[place] [address] Magnesium (11/30/2019 8:30 PM EDT) athologist Signature Magnesium 0.79 0.69 - 1.07 [facility]/L [facility] Specimen Anatomical Collection Method Collection Time Receive d Time (Source) Location / / Volume Laterality Blood specimen 11/30/2019 8:30 PM 020 8:35 (specimen) EDT PM EDT Resulting Agency Comment Spec In Lab Gretchen Yoon MD CHEMISTRY ORDERABLES Performing Organization Address City/State/[place] [address] (ABNORMAL) Basic Metabolic Panel (non-fasting) (11/30/2019 8:30 PM EDT) athologist Signature Glucose Lvl 132 65 - 199 [facility] mg/dL [facility] Comment: Diabetes: >=200 mg/dL plus symp toms BUN 12 10 - 20 mg/dL [facility] Creatinine 0.94 0.80 - 1.50 mg/dL [facility] Sodium 136 135 - 145 mmol/L [facility] Potassium 3.9 3.5 - 5.0 mmol/L [facility] Comment: Please note: ??Patients with [...] Anion Gap 11 5 - 15 mmol/L [facility] Calcium 7.9 (L) 8.5 - 10.5 mg/dL [facility] Estimated GFR 80 >=60 mL/min/1.73 m?? [facility] Comment: The eGFR was calculated using the CKD-EP I equation. As with all creatinine based estimates of kidney function, eGFR values calculated with the CKD-EPI equation are not accurate in patients wi th acute kidney failure, extremes of body mass or the acutely ill. [email or web address] eGFR 93 >=60 mL/min/1.73 m?? [facility] Comment: The eGFR was calculated using the CKD-EP I equation. As with all creatinine based estimates of kidney function, eGFR values calculated with the CKD-EPI equation are not accurate in patients wi th acute kidney failure, extremes of body mass or the acutely ill. [email or web address] Specimen Anatomical Collection Method Collection Time Receive d Time (Source) Location / / Volume Laterality Blood specimen 11/30/2019 8:30 PM 020 8:35 (specimen) EDT PM EDT Resulting Agency Comment Spec In Lab Gretchen Yoon MD CHEMISTRY ORDERABLES Performing Organization Address [facility] Phon e Number [address] Blood culture (11/30/2019 8:30 PM EDT) Patholo gist Method Time Signature Blood Culture No growth MELINA MONAE at 5 days. [facility] Specimen Anatomical Collection Method Collection Time Receive d Time (Source) Location / / Volume Laterality Blood specimen 11/30/2019 8:30 PM 020 9:40 (specimen) EDT PM EDT Comment: L HAND Resulting Agency Comment Spec In Lab Gretchen Yoon MD MICROBIOLOGY - BLOOD ORDERAB LES Performing Organization Address City/[facility] [place] [address] Blood culture (11/30/2019 8:30 PM EDT) Patholo gist Method Time Signature Blood Culture No growth MELINA MONAE at 5 days. [facility] Specimen Anatomical Collection Method Collection Time Receive d Time (Source) Location / / Volume Laterality Blood specimen 11/30/2019 8:30 PM 020 9:40 (specimen) EDT PM EDT Comment: R HAND Resulting Agency Comment Spec In Lab Gretchen Yoon MD MICROBIOLOGY - BLOOD ORDERAB LES Performing Organization Address [facility] Phon e Number [address] XR Chest One View [...] below. ? Electronically signed by: ALBA Watson [facility] ([phone]), at 11/30/2019 8:32 PM Narrative 11/30/2019 8:32 [...] Time Signature pH Art 7.45 7.35 - [facility] 7.45 [facility] pCO2 Art 27 (L) 35 - 45 [facility] mmHg [facility] pO2 Art 68 (L) 85 - 104 [facility] LABORATORY HCO3 Art 18.2 (L) 20.0 - [facility] 26.0 [facility] mmol/[facility] LABORATORY BE Art -5.9 (L) -3.0 - 3.0 [facility] mmol/L [facility] Hgb Blood Gas 12.4 (L) 13.7 - [facility] 16.5 gm/dL [facility] O2HB Art 93.1 (L) 94.0 - [facility] 97.0 % [facility] COHB Art 0.8 % [facility] Comment: Nonsmokers: 0.5-1.5% COHB Smokers: Variable, but usually less than 10% Toxic: 20-30% COHB Lethal: Greater than 60% COHB METHB Art 0.4 <=1.5 % [facility] Na Whole Blood 133 (L) 135 - 145 mmol/L [facility] K Whole Blood 3.6 3.5 - 5.0 mmol/L [facility] Comment: Please note: Patients with WBC >100,000 may have falsely elevated Potassium levels. Contact the Clinical Chemistry L aboratory if there are any questions. ICa Whole Blood 1.13 (L) 1.15 - 1.33 mmol/L [facility] Comment: Note: ??Total bilirubin higher than 20 m g/dL may lead to falsely low ionized calcium. CL Whole Blood 108 (H) 98 - 107 mmol/L [facility] Gluc Whole Bld 121 65 - 199 mg/dL [facility] Comment: Diabetes: >=200 mg/dL plus symp toms. Lactate WB 1.2 0.5 - 2.2 mmol/L [facility] Flow Art 5.0 LPM [facility] Specimen Anatomical Collection Method Collection Time Receive d Time (Source) Location / / Volume Laterality Blood specimen 11/30/2019 8:09 PM 020 8:09 (specimen) EDT PM EDT Gretchen Yoon MD CHEMISTRY ORDERABLES Performing Organization Address City/State/ZIP Code Phon e Number [place] [id number] HOSPITAL LABORATORY Drive CT Angiogram [place] (11/30/2019 4:36 PM EDT) Anatomical [...] CT HEAD WO CONTRAST (GENERIC), CT ANGIOGRAM [place] CLINICAL HISTORY: Headache, intracranial hemorrhage suspected F/U on known ICH - assessing for propaga tion TECHNIQUE: CT head performed without intravenous co ntrast administration. CT angiogram comanche of Bray 65 cc Omnipaque 350 administered [...] HEAD WO CONTRAST (GENERI C), CT ANGIOGRAM QAWALANGIN OF BRAY CLINICAL HISTORY: Headache, intracranial hemorrhage suspected F/U on known ICH - assessing for propaga tion TECHNIQUE: CT head performed without intravenous co ntrast administration. CT angiogram comanche of Bray 65 cc Omnipaque 350 administered [...] CT HEAD WO CONTRAST (GENERIC), CT ANGIOGRAM QAWALANGIN OF BRAY CLINICAL HISTORY: Headache, intracranial hemorrhage suspected F/U on known ICH - assessing for propaga tion TECHNIQUE: CT head performed without intravenous co ntrast administration. CT angiogram comanche of Bray 65 cc Omnipaque 350 administered [...] HEAD WO CONTRAST (GENERI C), CT ANGIOGRAM QAWALANGIN OF BRAY CLINICAL HISTORY: Headache, intracranial hemorrhage suspected F/U on known ICH - assessing for propaga tion TECHNIQUE: CT head performed without intravenous co ntrast administration. CT angiogram comanche of Bray 65 cc Omnipaque 350 administered [...] Electronically signed by: Angel Luis Barboza MD, [facility] ([phone]), at 11/30/2019 5:04 PM Gretchen Yoon MD [...] 453 ms MUSE SYSTEM (Bezet) Calculated P [place] 52 degrees MUSE SYSTEM Calculated R [place] 5 degrees MUSE SYSTEM Calculated T [place] -60 degrees MUSE SYSTEM INTERPRETATION Sinus rhythm [...] Corcoran ? (Age): 1945(74y) Med Rec#: ? [id number] ?Sex: ?M ? [place] Loc: ? [facility] ?Ht / Wt: ??178(cm)/64(kg) Pt. Loc: ?CCU ? BSA: ?1.8 Study Date: ?? 11/30/2019 ?Pt. Type: Inpatient Tape: ? Referring: GILMER Reading: Tello Mejia ([id number]) Plant Reliability Engineer: Friend, Lolita Diagnosis: *ST elevation (STEMI) myocardial [...] Vmax ?0.58 ? m/sec ? MV deceleration ptdo014.05 ? m sec ? MV A-wave Vmax [...] ? Mid-Inferior ?Akinetic ? Mid-Inferoseptal ?Normal ? [place]-Septal ? Normal ? [place]-Anterior ? Normal ? [place]-Lateral ?Normal ? [place]-Inferior ? Hypokinetic ? [place]-Tip ?Normal ? This report has been electronically sign ed by: _ Tello Mejia MD ? 11/30/2019 12: 45:27 Images reviewed and [facility] Procedure Note Tello Mejia MD - 11/30/2019Formatti ng of this note might be different from the original. Procedure: Transthoracic Echocardiogram Patient: RITA ACOSTA(Age): [birth year](74y) Med Rec#: [id number] Sex: M Site Loc: [facility] Ht / Wt: 178(cm)/64(kg) Pt. Loc: [facility] BSA: 1.8 Study Date: 11/30/2019 Pt. Type: Inpatie nt Tape: Referring: DONAYMICMUNIRAJ Reading: Tello Mejia ([id number]) Plant Reliability Engineer: Lolita Prado Diagnosis: *ST elevation (STEMI) myocardial [...] MV E-wave Vmax 0.58 m/sec MV deceleration tofw869.05 msec MV A-wave Vmax 0.74 m/sec MV [...] Hypokinetic Mid-Posterolateral Hypokinetic Mid-Inferior Akinetic Mid-Inferoseptal Normal [place]-Septal Normal [place]-Anterior Normal [place]-Lateral Normal [place]-Inferior Hypokinetic [place]-Tip Normal This report has been electronically sign ed by: _ Tello Mejia MD 11/30/2019 12:45:27 Images reviewed and interpretation rafaela devin [facility] Cardiac Ultrasound Laboratory Gretchen Yoon MD ECHO [...] Electronically signed by: Angel Luis Barboza MD, [facility] ([phone]), at 11/30/2019 12:04 PM Narrative 11/30/2019 12:04 [...] [place] Magnesium 0.88 0.69 - 1.07 [facility] mmol/L [facility] Specimen Anatomical Collection Method Collection Time Receive d Time (Source) Location / / Volume Laterality Blood specimen Venous Draw / 11/30/2019 8:30 AM 2019 8:37 (specimen) Unknown EDT AM EDT Resulting Agency Comment Spec In Lab Rossy Winn MD CHEMISTRY ORDERABLES Performing Organization Address City/[facility]/[place]IP [place] [address] (ABNORMAL) CK (11/30/2019 8:30 AM EDT) athologist [facility], [place] CK, Total 1,645 (H) 0 - 200 [facility]L [facility] Specimen Anatomical Collection Method Collection Time Receive d Time (Source) Location / / Volume Laterality Blood specimen 11/30/2019 8:30 AM 020 8:32 (specimen) EDT AM EDT Resulting Agency Comment Spec In Lab Gretchen Yoon MD CHEMISTRY ORDERABLES Performing Organization Address City/[facility] [place] [address] (ABNORMAL) Troponin (11/30/2019 8:30 AM EDT) athologist [facility] [place] Troponin-T 8.04 (H) 0.00 - MELINA DOV 0.00 ng/mL [facility] Comment: result rechecked-rancho The 99th percentile for Troponin T is le ss than 0.01 ng/mL, any detectable cTnT concentration using this assay should be considered elevated. According to the third universal definit ion of myocardial infarction the following criteria with a clinical prese ntation consistent with acute myocardial ischemia meets the diagnosis for a myocardial infarction (AK). Detection of a rise and/or fall of [...] additional sample may be indicated. Reference: Third [place] Definition of Myocardial Infarction. Journal of the [place] [employer] 2012;60:1581-98 Specimen Anatomical Collection Method Collection Time Receive d Time (Source) Location / / Volume Laterality Blood specimen 11/30/2019 8:30 AM 020 8:32 (specimen) EDT AM EDT Resulting Agency Comment Spec In Lab Gretchen Yoon MD CHEMISTRY ORDERABLES Performing Organization Address City/State/ZIP Code Phon e Number [place] [id number] EKG 12 Lead (11/30/2019 7:57 AM EDT) Component Value Ref Range Test Analysis Performed Pathologis t Method Time At Signature Ventricular rate 64 BPM MUSE SYSTEM Atrial Rate 64 BPM MUSE SYSTEM P-R Interval 132 ms MUSE SYSTEM QRS Duration 78 ms MUSE SYSTEM Q-T Interval 420 ms MUSE SYSTEM QTC Calculated 433 ms MUSE SYSTEM (Bezet) Calculated P [place] 28 degrees MUSE SYSTEM Calculated R [place] 7 degrees MUSE SYSTEM Calculated T [place] -33 degrees MUSE SYSTEM INTERPRETATION Sinus rhythm [...] Signature Glucose 147 (H) 65 - 99 [facility] Fasting mg/dL [facility] Comment: [...] of Diabetes Mellitus, Position Statement from the [place] [employer]. ??Diabete s Care, Volume 33, Supplement 1, Jul 2009 BUN 13 10 - 20 mg/dL [facility] Creatinine 0.90 0.80 - 1.50 mg/dL [facility] Sodium 135 135 - 145 mmol/L [facility] Potassium 3.9 3.5 - 5.0 mmol/L [facility] Comment: Please note: ??Patients with [...] Anion Gap 11 5 - 15 mmol/L [facility] Calcium 7.5 (L) 8.5 - 10.5 mg/dL [facility] Estimated GFR 84 >=60 mL/min/1.73 m?? [facility] Comment: The eGFR was calculated using the CKD-EP I equation. As with all creatinine based estimates of kidney function, eGFR values calculated with the CKD-EPI equation are not accurate in patients wi th acute kidney failure, extremes of body mass or the acutely ill. http://[employer]/[facility]ANnkf eGFR 98 >=60 mL/min/1.73 m?? [facility] Comment: The eGFR was calculated using the CKD-EP I equation. As with all creatinine based estimates of kidney function, eGFR values calculated with the CKD-EPI equation are not accurate in patients wi th acute kidney failure, extremes of body mass or the acutely ill. http://[employer]/[facility]ANnkf Specimen Anatomical Collection Method Collection Time Receive d Time (Source) Location / / Volume Laterality Blood specimen 11/30/2019 2:15 AM 020 2:29 (specimen) EDT AM EDT Resulting Agency Comment Spec In Lab Gretchen Yoon MD CHEMISTRY ORDERABLES Performing Organization Address City/State/ZIP Code Phon e Number [place] [id number] (ABNORMAL) Hemogram (11/30/2019 2:15 AM EDT) Analysis Performed At Patho logist Time Signature WBC 11.2 (H) 4.0 - 9.5 [facility] x10(3)/[facility] LABORATORY RBC 3.83 (L) 4.58 - [facility] 5.54 [facility] x10(6)/[facility] LABORATORY Hemoglobin 11.4 (L) 13.7 - [facility] 16.5 gm/dL [facility] Hematocrit 35.2 (L) 40.5 - [facility] 48.5 % [facility] MCV 91.9 82.9 - [facility] 93.1 fL [facility] MCH 29.8 27.5 - [facility] 32.1 pg [facility] MCHC 32.4 32.0 - [place] MONAE 35.7 gm/dL [facility] Platelets 122 (L) 145 - 357 M[place]INA MARSHDOV x10(3)/[facility] LABORATORY RDWSD 49.8 (H) 36.0 - [place] MONAE 45.0 [facility] LABORATORY RDWCV 14.8 (H) 11.4 - [place] 13.8 % [facility] MPV 12.1 7.6 - 12.9 MEL[place] MONAE [facility] LABORATORY nRBC % Auto 0.0 % [facility] nRBC Abs Auto 0.000 0.000 - [place] MARSHDOV 0.000 [facility] x10(3)/[facility] LABORATORY Specimen Anatomical Collection Method Collection Time Receive d Time (Source) Location / / Volume Laterality Blood specimen 11/30/2019 2:15 AM 020 2:29 (specimen) EDT AM EDT Resulting Agency Comment Spec In Lab Gretchen Yoon MD HEMATOLOGY ORDERABLES Performing Organization Address City/State/[place] [address] (ABNORMAL) CK (11/30/2019 2:15 AM EDT) athologist [facility] [place] CK, Total 1,969 (H) 0 - 200 [facility] DOV unit/L [facility] Specimen Anatomical Collection Method Collection Time Receive d Time (Source) Location / / Volume Laterality Blood specimen 11/30/2019 2:15 AM 020 2:29 (specimen) EDT AM EDT Resulting Agency Comment Spec In Lab Gretchen Yoon MD CHEMISTRY ORDERABLES Performing Organization Address City/State/[place] [address] (ABNORMAL) Troponin (11/30/2019 2:15 AM EDT) athologist [facility] [place] Troponin-T 11.73 (H) 0.00 - MELINA MONAE [...] meets the diagnosis for a myocardial infarction (AK). Detection of a rise and/or fall of [...] additional sample may be indicated. Reference: Third [place] Definition of Myocardial Infarction. Journal of the [place] College [employer]iology 2012;60:1581-98 result rechecked- The 99th percentile for Troponin T is le ss than 0.01 ng/mL, any detectable cTnT concentration using this assay should be considered elevated. According to the third universal definit ion of myocardial infarction the following criteria with a clinical prese ntation consistent with acute myocardial ischemia meets the diagnosis for a myocardial infarction (AK). Detection of a rise and/or fall of [...] additional sample may be indicated. Reference: Third [place] Definition of Myocardial Infarction. Journal of the [place] [employer] 2012;60:1581-98 Corrected from 11.73 ng/ml [HI] on 11/29 3:11:51 EDT by Debi Hawley Specimen Anatomical Collection Method Collection Time Receive d Time (Source) Location / / Volume Laterality Blood specimen 11/30/2019 2:15 AM 020 2:29 (specimen) EDT AM EDT Resulting Agency Comment Spec In Lab Gretchen Yoon MD CHEMISTRY ORDERABLES Performing Organization Address City/[facility]/ZIP Code Phon e Number [address] LDL Cholesterol, Direct (11/30/2019 2:15 AM EDT) P athologist Signature LDL Chol 156 mg/dL [facility] LABORATORY Comment: Lowest Risk: <100 mg/dL Lower Risk: 100-129 mg/dL Borderline High Risk: 130-159 mg/dL High Risk: 160-189 mg/dL Very High Risk: >qe=830 mg/dL Specimen Anatomical Collection Method Collection Time Receive d Time (Source) Location / / Volume Laterality Blood specimen 11/30/2019 2:15 AM 020 2:29 (specimen) EDT AM EDT Resulting Agency Comment Spec In Lab Gretchen Yoon MD CHEMISTRY ORDERABLES Performing Organization Address City/[facility]/ZIP Code Phon e Number [address] (ABNORMAL) Hemoglobin A1c (11/30/2019 2:15 AM EDT) Analysis Performed At Patho logist Time Signature Hemoglobin A1C 6.3 (H) 4.3 - 5.6 [facility] Comment: Reference Range: 4.3 - [...] Mellitus, Diabetes Care 2013; 36: Suppl. 1, Z87-49 Est Avg Gluc See note mg/dL [facility] LAB[facility] Comment: Estimated Average Glucose not [...] with hemoglobinopathies. Additional resources are available on [facility] ADA website. Kiko CARBAJAL, Jenn J, Silas R, et al. ??Tr anslating the A1C assay into estimated average glucose values. ??Diabetes Care 2008:31(8):7419-3395. Specimen Anatomical Collection Method Collection Time Receive d Time (Source) Location / / Volume Laterality Blood specimen 11/30/2019 2:15 AM 020 2:29 (specimen) EDT AM EDT Resulting Agency Comment Spec In Lab Gretchen Yoon MD CHEMISTRY ORDERABLES Performing Organization Address City/State/[place] [address] Lipid Panel (Reflex Direct LDL) (11/30/2019 2:15 AM EDT) athologist Signature Chol, Total 195 mg/dL [facility] Comment: Lower Risk: <200 mg/dL Average Risk: 200-239 mg/dL Higher Risk: >xw=104 mg/dL Triglycerides 93 mg/dL [facility] Comment: Average Risk/Lower Risk: <150 mg/dL Borderline High Risk: 150-199 mg/dL High Risk: 200-499 mg/dL Very High Risk: >af=373 mg/dL HDL 32 mg/dL [facility] Comment: Males: ?? Higher Risk: <40 mg/dL Females: ?? HIgher Risk: <50 mg/dL LDL Cholesterol 144 mg/dL [facility] Comment: Lowest Risk: <100 mg/dL Lower Risk: 100-129 mg/dL Borderline High Risk: 130-159 mg/dL High Risk: 160-189 mg/dL Very High Risk: >to=901 mg/dL Chol/HDL Ratio 6.1 ratio [facility] Lipid Interpretation See Note [facility] Comment: Lipid management should be guided by a p atient? s ASCVD risk, goals and preferences. ACC/AHA Guidelines recommend high intens ity statin if clinical ASCVD or LDL greater than or equal to 190 mg/dL. http://[employer]/UND-BMR-Zwoycqndk Adults aged 40-75 with LDL 70-189 mg/dL should have their 10 year ASCVD risk estimated with the ACC/AHA ASCVD risk es timator http://tools.acc.org/ETARX-Jxxt-Pneycmdx r/ Statin should be discussed if risk [...] Organization Address City/State/[place] [address] (ABNORMAL) CK (11/29/2019 6:35 PM EDT) athologist Signature CK, Total 2,780 (H) 0 - 200 [facility] unit/L [facility] Specimen Anatomical Collection Method Collection Time Receive d Time (Source) Location / / Volume Laterality Blood specimen 11/29/2019 6:35 PM 020 6:53 (specimen) EDT PM EDT Resulting Agency Comment Spec In Lab Gretchen Yoon MD CHEMISTRY ORDERABLES Performing Organization Address City/State/[place] [address] (ABNORMAL) Troponin (11/29/2019 6:35 PM EDT) athologist Signature Troponin-T 17.60 (H) 0.00 - [facility] 0.00 ng/mL [facility] Comment: result rechecked-az The 99th percentile for Troponin T is le ss than 0.01 ng/mL, any detectable cTnT concentration using this assay should be considered elevated. According to the third universal definit ion of myocardial infarction the following criteria with a clinical prese ntation consistent with acute myocardial ischemia meets the diagnosis for a myocardial infarction (AK). Detection of a rise and/or fall of [...] additional sample may be indicated. Reference: Third [place] Definition of Myocardial Infarction. Journal of the [place] College [employer]iology 2012;60:1581-98 Specimen Anatomical Collection Method Collection Time Receive d Time (Source) Location / / Volume Laterality Blood specimen 11/29/2019 6:35 PM 020 6:53 (specimen) EDT PM EDT Resulting Agency Comment Spec In Lab Gretchen Yoon MD CHEMISTRY ORDERABLES Performing Organization Address City/State/ZIP Code Phon e Number [place] [id number] EKG 12 Lead (11/29/2019 3:58 PM EDT) [facility] gist Method Time Signature Ventricular rate 73 BPM MUSE SYSTEM Atrial Rate 73 BPM MUSE SYSTEM P-R Interval 152 ms MUSE SYSTEM QRS Duration 84 ms MUSE SYSTEM Q-T Interval 404 ms MUSE SYSTEM QTC Calculated 445 ms MUSE SYSTEM (Bezet) Calculated P [place] 50 degrees MUSE SYSTEM Calculated R [place] -4 degrees MUSE SYSTEM Calculated T [place] 19 degrees MUSE SYSTEM INTERPRETATION Sinus rhythm [...] below. ? Electronically signed by: Devin Solis [facility] ([phone]), at 11/29/2019 5:06 PM --------ORIGINAL REPORT -------- EXAMINATION: XR CHEST ONE VIEW CLINICAL HISTORY: stemi (as [facility] in [facility] requisition) TECHNIQUE: [...] lung apex is excluded from the imaged qeloy-[id number]-[id number]. IMPRESSION: 1. ??New right internal jugular pulmonar [...] below. ? Electronically signed by: Devin Solis [facility] ([phone]), at 11/29/2019 4:36 PM Impressions 11/29/2019 4:36 [...] below. ? Electronically signed by: Devin Solis [facility] ([phone]), at 11/29/2019 4:36 PM Narrative 11/29/2019 4:36 [...] lung apex is excluded from the imaged [id number]. Procedure Note Estefani Harris MD - 11/29/2019Formattin [...] lung apex is excluded from the imaged [id number]. IMPRESSION 1. New right internal jugular pulmonary [...] (ABNORMAL) Differential, Automated (11/29/2019 2:32 PM EDT) [facility] Method Time Signature Neutrophils % 83.8 % [facility] Neutr Abs (ANC) 12.12 (H) 1.70 - [facility] 6.10 [facility] x10(3)/[facility] LABORATORY Lymphocytes % 9.1 % [facility]OR[facility]ORY Lymphocytes Abs 1.3 0.9 - 3.2 [facility] x10(3)/[facility] LABORATORY Monocytes % 6.2 % [facility] Monocyte Abs 0.9 0.3 - 0.9 [facility] x10(3)/[facility] LABORATORY Eosinophils % 0.0 % [facility] Eosinophils Abs 0.0 0.0 - 0.4 [facility] x10(3)/[facility] LABORATORY Basophils % 0.3 % [facility] Basophils Abs 0.0 0.0 - 0.1 [facility] x10(3)/[facility] LABORATORY Immature Gran % 0.60 % [facility] [...] 0.00 - 0.04 x10(3)/[facility] LABORATORY Specimen Anatomical Collection Method Collection Time Receive d Time (Source) Location / / Volume Laterality Blood specimen 11/29/2019 2:32 PM 020 2:55 (specimen) EDT PM EDT Resulting Agency Comment Spec In Lab Darrell Glasgow MD HEMATOLOGY ORDERABLES Performing Organization Address City/State/[place] [address] (ABNORMAL) Hemogram (11/29/2019 2:32 PM EDT) Analysis Performed At Patho logist Time Signature WBC 14.5 (H) 4.0 - 9.5 [facility] x10(3)/[facility] LABORATORY RBC 4.53 (L) 4.58 - [facility] 5.54 [facility] x10(6)/[facility] LABORATORY Hemoglobin 13.1 (L) 13.7 - [facility] 16.5 gm/dL [facility] Hematocrit 40.8 40.5 - [facility] 48.5 % [facility] MCV 90.1 82.9 - [facility] LABORATORY MCH 28.9 27.5 - [facility] 32.1 pg [facility] MCHC 32.1 32.0 - [facility] 35.7 gm/dL [facility] Platelets 184 145 - 357 [facility] x10(3)/[facility] LABORATORY RDWSD 47.8 (H) 36.0 - [facility] DOV 45.0 [facility] LABORATORY RDWCV 14.5 (H) 11.4 - [facility] DOV 13.8 % [facility] LABORATORY MPV 11.9 7.6 - 12.9 [facility] nRBC % Auto 0.0 % [facility]ORATORY nRBC Abs Auto 0.000 0.000 - [facility] DOV 0.000 [facility] x10(3)/[facility] LABORATORY Specimen Anatomical Collection Method Collection Time Receive d Time (Source) Location / / Volume Laterality Blood specimen 11/29/2019 2:32 PM 020 2:55 (specimen) EDT PM EDT Resulting Agency Comment Spec In Lab Darrell Glasgow MD HEMATOLOGY ORDERABLES Performing Organization Address City/State/ZIP Code Phon e Number [address] (ABNORMAL) CK (11/29/2019 2:32 PM EDT) athologist Signature CK, Total 3,282 (H) 0 - 200 [facility] unit/L [facility]ORY Specimen Anatomical Collection Method Collection Time Receive d Time (Source) Location / / Volume Laterality Blood specimen 11/29/2019 2:32 PM 020 2:32 (specimen) EDT PM EDT Resulting Agency Comment Spec In Lab Gretchen Yoon MD CHEMISTRY ORDERABLES Performing Organization Address City/[facility]/[place] [address] (ABNORMAL) Troponin (11/29/2019 2:32 PM EDT) athologist Signature Troponin-T 20.33 (H) 0.00 - [facility] 0.00 ng/mL [facility] Comment: The 99th percentile for Troponin T is le ss than 0.01 ng/mL, any detectable cTnT concentration using this assay should be considered elevated. According to the third universal definit ion of myocardial infarction the following criteria with a clinical prese ntation consistent with acute myocardial ischemia meets the diagnosis for a myocardial infarction (AK). Detection of a rise and/or fall of [...] additional sample may be indicated. Reference: Third [place] Definition of Myocardial Infarction. Journal of the [place] [employer] 2012;60:1581-98 Specimen Anatomical Collection Method Collection Time Receive d Time (Source) Location / / Volume Laterality Blood specimen 11/29/2019 2:32 PM 020 2:32 (specimen) EDT PM EDT Resulting Agency Comment Spec In Lab Gretchen Yoon MD CHEMISTRY ORDERABLES Performing Organization Address [facility] [place] [address] (ABNORMAL) APTT (11/29/2019 2:32 PM EDT) athologist Signature PTT 114 25 - 37 [facility] (Critical) [facility] LABORATORY Comment: Critical Result called by ?? [...] Yoon MD HEMATOLOGY ORDERABLES Performing Organization Address [facility] [place] [address] (ABNORMAL) Prothrombin Time (11/29/2019 2:32 PM EDT) P athologist Signature PT 13.5 (H) 9.4 - 12.5 [facility] LABORATORY INR 1.2 [facility]OR[facility]ORY Comment: [...] Organization Address City/State/Z[place] [address] (ABNORMAL) Hepatic Function Panel (11/29/2019 2:32 PM EDT) athologist Signature Total Protein 6.3 6.1 - 8.0 [facility] gm/[facility] Albumin 3.6 3.2 - 5.2 [facility] gm/dL [facility] AST 257 (H) 0 - 39 [facility]L [facility] ALT 50 0 - 55 [facility]L [facility] Alk Phos 84 40 - 130 [facility] unit/L [facility] Total 0.3 0.2 - 1.3 [facility] Bilirubin mg/dL [facility] Bili, Direct 0.1 0.0 - 0.3 [facility] DOV mg/dL [facility] Specimen Anatomical Collection Method Collection Time Receive d Time (Source) Location / / Volume Laterality Blood specimen 11/29/2019 2:32 PM 020 2:32 (specimen) EDT PM EDT Resulting Agency Comment Spec In Lab Gretchen Yono MD CHEMISTRY ORDERABLES Performing Organization Address City/[facility]/[place]IP [place] [address] (ABNORMAL) pro-Brain Natriuretic Peptide (11/29/2019 2:32 PM EDT) P athologist Signature ProBNP 272 (H) <=125 pg/mL [facility] Specimen Anatomical Collection Method Collection Time Receive d Time (Source) Location / / Volume Laterality Blood specimen 11/29/2019 2:32 PM 020 2:32 (specimen) EDT PM EDT Resulting Agency Comment Spec In Lab Gretchen Yoon MD CHEMISTRY ORDERABLES Performing Organization Address City/[facility]/[place]IP [place] [address] Magnesium (11/29/2019 2:32 PM EDT) athologist Signature Magnesium 0.76 0.69 - 1.07 [facility] mmol/L [facility] Specimen Anatomical Collection Method Collection Time Receive d Time (Source) Location / / Volume Laterality Blood specimen 11/29/2019 2:32 PM 020 2:32 (specimen) EDT PM EDT Resulting Agency Comment Spec In Lab Gretchen Yoon MD CHEMISTRY ORDERABLES Performing Organization Address City/State/ZIP Code Phon e Number [address] (ABNORMAL) Basic Metabolic Panel (non-fasting) (11/29/2019 2:32 PM EDT) athologist Signature Glucose Lvl 149 65 - 199 [facility] mg/dL [facility] Comment: Diabetes: >=200 mg/dL plus symp toms BUN 16 10 - 20 mg/dL [facility] Creatinine 0.94 0.80 - 1.50 mg/dL [facility] Sodium 135 135 - 145 mmol/L [facility] Potassium 4.5 3.5 - 5.0 mmol/L [facility] Comment: Please note: ??Patients with [...] Anion Gap 15 5 - 15 mmol/L [facility] Calcium 8.0 (L) 8.5 - 10.5 mg/dL [facility] Estimated GFR 80 >=60 mL/min/1.73 m?? [facility] Comment: The eGFR was calculated using the CKD-EP I equation. As with all creatinine based estimates of kidney function, eGFR values calculated with the CKD-EPI equation are not accurate in patients wi th acute kidney failure, extremes of body mass or the acutely ill. [email or web address] eGFR 93 >=60 mL/min/1.73 m?? [facility] Comment: The eGFR was calculated using the CKD-EP I equation. As with all creatinine based estimates of kidney function, eGFR values calculated with the CKD-EPI equation are not accurate in patients wi th acute kidney failure, extremes of body mass or the acutely ill. http://[employer]/[facility]AN[facility]f Specimen Anatomical Collection Method Collection Time Receive d Time (Source) Location / / Volume Laterality Blood specimen 11/29/2019 2:32 PM 020 2:32 (specimen) EDT PM EDT Resulting Agency Comment Spec In Lab Gretchen Yoon MD CHEMISTRY ORDERABLES Performing Organization Address City/[facility] [place] [address] EKG 12 Lead (11/29/2019 11:38 AM EDT) [facility] gist Method Time Signature Ventricular rate 60 BPM MUSE SYSTEM Atrial Rate 60 BPM MUSE SYSTEM P-R Interval 140 ms MUSE SYSTEM QRS Duration 86 ms MUSE SYSTEM Q-T Interval 474 ms MUSE SYSTEM QTC Calculated 474 ms MUSE SYSTEM (Bezet) Calculated P [place] 48 degrees MUSE SYSTEM Calculated R [place] 14 degrees MUSE SYSTEM Calculated T [place] 58 degrees MUSE SYSTEM INTERPRETATION Normal sinus [...] Yoon MD ECG ORDERABLES Performing Organization Address City/[facility]/ZIP [facility] Phon e Number MUSE SYSTEM CARDIAC CATHETERIZATION (11/29/2019 11:15 AM EDT) Anatomical Region Laterality Modality Other Specimen (Source) Anatomical Location Collection Method / Collectio n Time Received Time / Laterality Volume Narrative 11/30/2019 1:09 PM EDT ?[facility] ? Cardiac Cathete rization/Intervention Report ? Patient Name: Salinas, Angel Luis H. ? Procedure Date: 11/29/2019 ? A #: [id number] ? Primary Physician: Young, Gretchen N ? Case #: [id number] ? File Name: [id number] ? Catheterization Order Number: [id number] ? [facility] ? Final Report [place], [place] ? Patient Name: ? Angel Luis Salinas ? ID#: ?[id number] ? : ?1945 ? Procedure Date: ? [...] procedure was Emergent. 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 ?Recommended anti-platelet/anti- thrombotic regimen: ?Continue aspirin 81 mg daily fo r indefinitely. ?Continue clopidogrel 75 mg marco a y for 12 months then stop. ?These recommendations are made at the time of the intervention. Patient ?and provider preferences or a c hanging clinical situation may require ?modification of this regimen. C marvult [facility] Interventional Cardiology for ?questions. ? Conclusions: ?* [...] Luis Salinas Procedure Date: 11/29/2019 A #: [id number] Primary Physician: Gretchen Yoon Case #: [id number] File Name: [id number] Catheterization Order Number: [id number] [facility] Final Report [place], [place] Patient Name: Angel Luis Salinas ID#: [id number] : 1945 Procedure Date: November 29, [...] was designated as ASA Class IV. The [facility] clinical frailty scale is 4: Vulnerable. Diagnostic Tests: Electrocardiography: EKG was assessed by ECG. EKG was Abnorm al. EKG showed ST Deviation >= 0.5 mm. Medications Prior to Procedure: Aspirin. Indications for Diagnostic Cath: The priority of the diagnostic procedur e was Emergent. 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 The [facility] indication for the procedure was S GAETANO [...] this intervention was 10%. The final TI AK flow was 2. Distal 90% Thrombectomy and [...] this intervention was 10%. The final TI AK flow was 2. 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 Recommended anti-platelet/anti-thrombot ic regimen: Continue aspirin 81 mg daily for indefi nitely. Continue clopidogrel 75 mg daily for 12 months then stop. These recommendations are made at the t loyda of the intervention. Patient and provider preferences or a changing clinical situation may require modification of this regimen. Consult D [facility] Interventional Cardiology for questions. Conclusions: * Two [...] Signature POC pH 7.33 (L) 7.35 - [facility] 7.45 [facility] POC PCO2 33 (L) 35 - 45 [facility] mmHg [facility] POC PO2 56 (L) 85 - 104 [facility] LABORATORY POC Base Excess -8.0 (L) -3.0 - 3.0 [facility] mmol/L [facility] POC HCO3 17.4 (L) 20.0 - [facility] 26.0 [facility] mmol/[facility] POC Sodium 137 135 - 145 [facility] mmol/L [facility] POC Potassium 3.6 3.5 - 5.0 [facility] mmol/L [facility] POC Ionized Ca 1.15 1.15 - [facility] 1.33 [facility] P[facility] Hematocrit 37.0 (L) 40.0 - [facility] 51.0 % [facility] POC Calc Hgb 12.6 (L) 13.7 - [facility] 17.5 gm/dL [facility] Comment: The calculation of hemoglobin f rom hematocrit assumes a normal MCHC. POC Bgas Loc CC LAB [facility] Specimen Anatomical Collection Method Collection Time Receive d Time (Source) Location / / Volume Laterality Blood specimen 11/29/2019 9:17 AM 020 7:35 (specimen) EDT AM EDT Gretchen Yoon MD CHEMISTRY ORDERABLES Performing Organization Address City/State/[place] [address] EKG 12 Lead (11/29/2019 9:01 AM EDT) Component Value Ref Range Test Analysis Performed Pathologis t Method Time At Signature Ventricular rate 80 BPM MUSE SYSTEM Atrial Rate 79 BPM MUSE SYSTEM QRS Duration 94 ms MUSE SYSTEM Q-T Interval 436 ms MUSE SYSTEM QTC Calculated 502 ms MUSE SYSTEM (Bezet) Calculated R [place] 54 degrees MUSE SYSTEM Calculated T [place] 80 degrees MUSE SYSTEM INTERPRETATION Normal sinus rhythm MUSE SYSTEM Inferior infarct , possibly acute Prolonged QT * ACUTE AK ?? Consider right ventricular involvement in acute [...] 150 mg, Intravenous, ONCE, 1 dose, On [place] 12/07/19 at 1315, Warning Vesicant/Irritant Medication , [...] mL/hr 250 mL/hr, Intravenous, CONTINUOUS, Starting on [place] 12/07/19 at 0145, Until [place] 12/07/19 at 0239 levoFLOXacin (LEVAQUIN) 750 mg in New Bag 11/30/2019 11:03 PM EDT 750 mg 100 mL/hr dextrose 5% 150 mL 750 mg, Intravenous, at 100 mL/hr, EVERY 24 HOURS, First dose on [place] 11/30/19 at 2300, Until Discontinued, Routine lisinopriL [...] ONCE, 1 dose, 12/06/19 at 0515, Ad hands hanger over 120 Minutes magnesium sulfate 2 g [...] Oral, EVERY 4 HOURS PRN, Startin g [place] 11/30/19 at 2016, Until Sun12/08/19 at 1811, hypokalemia
Administer for serum potassium (mMol/L) of 3.9 - 4 See instructions for Potassium Protocol in online policies.
Routine Or potassium chloride ER (K-Dur/Klor-Con) tablet 40 mEqJump to med 40 mEq, Oral, EVERY 4 HOURS PRN, Startin g [place] 11/30/19 at 2016, Until Sun12/08/19 at 1811, hypokalemia
Administer for serum potassium (mMol/L) of 3.6 - 3.8 See instructions for Potassium Protocol in online policies.
Routine documented in this encounter Care Teams Membership Counselor Relationship Specialty Start Date End Date France Lam MD PCP - General 05/02/13 02/04/20 [address] [place] [address] documented as of this encounter
--- OUTSIDE RECORDS SUMMARY | 2022-03-24 15:10 | XMS_ITS | Encounter Summary ---
:1945 Author Organization [facility] [place] [address] Care Team Providers Name Role Phone France Lam MD Primary Care Provider Encounter Details Date Type Department Care Team Description 11/30/2019 Orders Only Cardiology [facility] [place] [address] Social History Tobacco Use Types Packs/Day [...] fajardo ? (Age): 1945(74y) Med Rec#: ? [id number] ?Sex: ?M ? Site Loc: ? Ht / Wt: ??(cm)/ (kg) ? Pt. Loc: ? Study Date: ?? 11/29/2019 ?Pt. Type: Tape: ? Referring: Faustino Garduno Reading: Dawit Mejia ([id number]) Industrial Hire Sales Assistant: [employer] Exhibit Display Representative: Cedric Eric ([id number]) Interpreting Fellow: Cedric Eric ([id number]) Diagnosis: SUMMARY: 1. Limited bedside echocardiogram perfor med by coordinator of rehabilitation services radiation protection technician for hypotension following inferior STEMI . 2. [...] ? Mid-Inferior ?Akinetic ? Mid-Inferoseptal ?Hypokinetic ? [place]-Septal ? Normal ? [place]-Anterior ? Normal ? [place]-Lateral ?Normal ? [place]-Inferior ? Hypokinetic ? [place]-Tip ?Normal ? This report has been electronically sign ed by: _ Dawit Mejia MD ? 11/30/2019 12: 53:59 Images reviewed and interpretation rafaela [email or web address] [facility] Cardiac Ultrasound Laboratory Procedure Note Dawit Mejia MD - 11/30/2019Formatti ng of this note might be different from the original. Procedure: Transthoracic Echocardiogram Patient: domenica ACOSTA(Age): 6(74y) Med Rec#: [id number] Sex: M Site Loc: Ht / Wt: (cm)/ (kg) Pt. Loc: Study Date: 11/29/2019 Pt. Type: Tape: Referring: Faustino Garduno Reading: Dawit Mejia ([id number]) Industrial Hire Sales Assistant: [employer] Exhibit Display Representative: Cedric Eric ([id number]) Interpreting Fellow: Cedric Eric ([id number]) Diagnosis: SUMMARY: 1. Limited bedside echocardiogram perfor med by coordinator of rehabilitation services radiation protection technician for hypotension following inferior STEMI . 2. [...] Normal Mid-Posterolateral Akinetic Mid-Inferior Akinetic Mid-Inferoseptal Hypokinetic [place]-Septal Normal [place]-Anterior Normal [place]-Lateral Normal [place]-Inferior Hypokinetic [place]-Tip Normal This report has been electronically sign ed by: _ Dawit Mejia MD 11/30/2019 12:53:59 Images reviewed and interpretation verif ied [facility] Cardiac Ultrasound Laboratory Unknown ECHO ORDERABLES documented in this encounter Visit Diagnoses Not on filedocumented in this encounter Care Teams Speech Instructor Relationship Specialty Start Date End Date France Lam MD PCP - General 05/02/13 02/04/20 [address] [place] [address] documented as of this encounter
--- OUTSIDE RECORDS SUMMARY | 2022-03-24 15:11 | XMS_ITS | Encounter Summary ---
:1945 Author Organization [facility] [address] Care Team Providers Name Role Phone France Lam MD Primary Care Provider Encounter Details Date Type Department Care Team Description 05/13/2013 Ancillary Vascular Surgery at [facility] (Primary Appointment [facility] Cesilia Sebastian, [place] Dx) [place] [id number] Social History Tobacco Use Types Packs/Day Years [...] Component Value Ref Test Analysis Performed At [facility] gist Range Method Time Signature VB Text VASCUBASE Report Department: Vascular Surgery Lab Patient: [id number] (ANGEL LUIS HI) CPT Code: 40287 ICD-9: 440.21 Referring Physician: FRANCE LAM Indication: [...] Posterior Tibial (Ankle) Art derrell ??84 ?0.64 ??Gibson- Biphasic ?? Interpretation: RIGHT: ??Mild lower extremity [...] limb documented in this encounter Care Teams Program Paraprofessional Relationship Specialty Start Date End Date France Lam MD PCP - General 05/02/13 02/04/20 [address] [place] [address] documented as of this encounter
--- OUTSIDE RECORDS SUMMARY | 2022-03-24 15:11 | XMS_ITS | Encounter Summary ---
:1945 Author Organization [facility] [place] [address] Care Team Providers Name Role Phone France Lam MD Primary Care Provider Encounter Details Date Type Department Care Team Description 11/29/2019 External Results [place] [address] Social History Tobacco Use Types Packs/Day [...] on filedocumented in this encounter Care Teams Picker Tender Relationship Specialty Start Date End Date France Lam MD PCP - General 05/02/13 02/04/20 [address] [place] [address] documented as of this encounter
--- OUTSIDE RECORDS SUMMARY | 2022-03-24 15:11 | XMS_ITS | Encounter Summary ---
:1945 Author Organization [facility] Address [address] [place] [address] Care Team Providers Name Role Phone France Lam MD Primary Care Provider Reason for Visit Reason Comments Claudication Encounter Details Date Type Department Care Team Description 05/13/2013 Office Visit Vascular Surgery at [facility] from [facility] MD Bobby peripheral vascular [facility] dis ease, left ([address] Drive [address] [place]) [place], [place] VASCULAR SURGERY [id number] [place] [address] [phone] Social History Tobacco Use Types Packs/Day Years [...] unspecified documented in this encounter Care Teams Gill Box Tender Relationship Specialty Start Date End Date France Lam MD PCP - General 05/02/13 02/04/20 [address] [place] [address] documented as of this encounter
--- OUTSIDE RECORDS SUMMARY | 2022-03-24 15:11 | XMS_ITS | Encounter Summary ---
:1945 Author Organization [facility] [place] [address] Care Team Providers Name Role Phone France Lam MD Primary Care Provider Encounter Details Date Type Department Care Team Description 05/13/2013 Orders Only Vascular Surgery at [facility] P[facility] (xi luis [facility] dental technology advisor disease) [facility] (Primary Dx) [place] [address] Social History Tobacco Use Types Packs/Day [...] unspecified documented in this encounter Care Teams Coal Trimmer Relationship Specialty Start Date End Date France Lam MD PCP - General 05/02/13 02/04/20 [address] [place] [address] documented as of this encounter
--- OUTSIDE RECORDS SUMMARY | 2022-03-24 15:11 | XMS_ITS | Encounter Summary ---
:1945 [place] [address] Care Team Providers Name Role Phone France Lam MD Primary Care Provider Reason for Visit Auth/Cert Specialty Diagnoses / Procedures Referred By Contact Refer red To Contact Diagnoses STEMI (ST elevation myocardial infarction) STEMI Procedures CARDIAC CATHETERIZATION Referral ID Status Reason Start Date Expiration Date Visits Requ ested Visits Authorized [id number] 1 1 Encounter Details Date Type Department Care Team Description 11/29/2019 Surgery Hand Tube Bender Gretchen Corral, CARDIAC CATHETERIZATION [facility] [place] [address] [place] [id number] [phone] (Wo rk) Social History Tobacco Use Types [...] Luis Salinas Patient Age: 74 y.o. Language: Citizen Of [place] Race: White Ethnicity: Not nor Admit date: [...] months on: antiplatelet therapy at discretion of public relations sales marketing - Repeat TTE in 3 months to reassess LV function - Repeat BMP in 1-2 weeks given recent start lisinopril - Referred to lipid clinic for consideration of PCSK-9 inhibitor given STEMI with intolerance of statins - Started on amiodarone this admission for recurrent rapid atrial flutter with rates ~170, recommendcontinued assessment of necessity of rhythm control strategy with public relations sales marketing - Amiodarone monitoring recommendations as below - [...] please contact your inpatient physician through the [facility] . Issues after hours and on weekends [...] took two full strength aspirinand came to [facility] ED. At there was found to [...] and Compazine. He was transferred directly to [facility] via [facility] for further management. Patient had an emergent PCI with 3 MACARIO stents placed to his RCA, with mild disease of LCX (report pending) at [facility]. He was found to be persistently hypotensive requiring Levo up to 10mcg/min. He was transferred to [facility] after the cath procedure. Bedside RHC showed CI 2.12, PAWP 11, PAP 38/15 indicating hypovolemic state. He received 1L bolus of NS with improvement of his blood pressure to 124/61. History of PAD, HLD - had side reactions to statins - so taking niacin and red rye grain. Chronic active smoker with more than 65 pack years. Family history of PA in father and two uncles. He's takingbaby [...] ip as described above. On arrival at [facility] he was taken for [...] priority for the procedure was Emergent. [facility] (after [...] Electronically signed by: Angel Luis Barboza MD, [facility] ([phone]), at 11/30/2019 12:[address] Head wo [...] by: [facility] ([phone]), at 11/30/2019 5:[address] Angiogram [place] (Exam End: 11/30/2019 4:36 PM) Impression Head CT: Stable hemorrhage in the region of the left optic tract. CTA: Negative exam. No abnormal vasculature in the area of hemorrhage. Thank you for letting us participate in the care of this patient. For questions regarding this report, please contact the number below. Electronically signed by: Angel Luis Barboza MD, [facility] ([phone]), at 11/30/2019 5:04 PM MRI Brain wo [...] Electronically signed by: Angel Luis Barboza MD, [facility] ([phone]), at 12/01/2019 8:02 PM XR Chest One [...] ??? Penicillins Pt doesn't remember reaction ??? Qivbzbo-Rap-Tvb Reductase Inhibitors Stiff neck, upset stomach, back [...] medications at another hospital and then at [facility] you had a stent [...] FOR ONE MONTH AND THEN STOP. Your public relations sales marketing may tell you to start this medication again after one year. Clopidogrel (Plavix) 75 mg daily - This medication will help prevent clots from forming in your blood, which will help protect the stent that was placed in your heart vessel. TAKE THIS FOR ONE YEAR ANDTHEN DISCUSS WITH YOUR BLACKSMITH ASSISTANT WHETHER TO STOP. Amiodarone 400mg twice daily [...] follow up: Your primary care provider and public relations sales marketing will manage your blood thinner (apixaban). You do not need lab monitoring of this medication. Diet: Please consume a healthy diet low in cholesterol Follow up Appointments: 12/10/2019 at 3:10PM with PCP Angel Luis Lott Future Appointments Date Time Provider Department Center 12/23/2019 1:30 PM Alfreda Salas APRN [facility] [id number] 12/26/2019 9:40 AM Merlin Sanchez MD [facility] CARD 4A [facility] 12/30/2019 3:40 PM Gretchen Yoon MD [address] Future Appointments and Orders Future Appointments and Orders Future Appointments Provider Department Dept Phone 12/23/2019 1:30 PM Alfreda Salas APRN Neurosurgery at [facility] Arrive at: Home [phone] Please do not come in for this visit. Your provider will call you at the number you provided. 12/26/2019 9:40 AM Merlin Sanchez MD Cardiology at [facility] Arrive at: Home [phone] Please do not come in for this visit. Your provider will call you at the number you provided. 12/30/2019 3:40 PM Gretchen Yoon MD Cardiology at [facility] Arrive at: Home [phone] Please do not come in for this visit. Your provider will call you at the number you provided. Future Orders Complete By Expires Referral to Cardiac Rehab [[id number] Custom] As directed Process Instructions: If no progress note charted, please enter Clinical details in comments. Scheduling Instructions: Questions: My question or request is: STEMI. Cardiac rehab at [facility] Referral to [facility] [REF43 Custom] As directed Process Instructions: If no progress note charted, please enter Clinical details in comments. Scheduling Instructions: Questions: My question or request is: patient with inferior stemi with history of statin allergy (rash) - please evaluate for psck9 inhibitor. Referral to Home Health - at DISCHARGE [TVB7549 CPT(R)] As directed Process Instructions: Scheduling Instructions: Comments: DOCUMENTATION FOR VNA SERVICES PATIENT'S LOCATION: Angel Luis Corcoran [address] [address] (home) Cd Manufacturing Supervisor's Name: Self In discussion with the attending physician, it is certified that this patient is under his/her care and that MD, or an EPIC CADENCE SPECIALISTS, SQL REPORT ANALYST, or PA who is working directly with him/her, had a phes-zr-jfzr encounter that meets the physician rgjv-fe-qwyi encounter requirements with this patient on 12/07/2019. [...] HEALTH CARE AGENCY: [facility], PHONE: [phone] FAX: [phone] Start of care: 24-48 hours after hospital [...] MD [address] / [place] [address] All A agencies which cover the area of patient's residence have been reviewed, either verbally or in writing, and patient/family have chosen the home health care agency noted. Questions: Agency name and contact information: [facility] Patient location post discharge: Home What services are requested: Registered Nurse Physical Therapy Occupational Therapy Start date: Responsible MD post discharge contact info: PCP Your PCP: France Lam MD [phone] For questions regarding this document or issues relating to this hospitalization on the Cardiology Service, please contact your inpatient physician through the [facility] [employer] . Issues after hours and on weekends will be handled by the Ship Scaler on-call. Patient Instructions: Neurology Your Diagnosis: Left [...] follow-up appointment in the neurology clinic at [facility]. See below for the appointment time. [...] 1:30 PM Alfreda Salas APRN Neurosurgery at [facility] Arrive at: Home [phone] Please do not come in for this visit. Your provider will call you at the number you provided. 12/26/2019 9:40 AM Merlin Sanchez MD Cardiology at [facility] Arrive at: Home [phone] Please do not come in for this visit. Your provider will call you at the number you provided. 12/30/2019 3:40 PM Gretchen Yoon MD Cardiology at [facility] Arrive at: Home [phone] Please do not come in for this visit. Your provider will call you at the number you provided. Future Orders Complete By Expires Referral to Cardiac Rehab [[id number] Custom] As directed Process Instructions: If no progress note charted, please enter Clinical details in comments. Scheduling Instructions: Questions: My question or request is: STEMI. Cardiac rehab at [facility] Referral to [facility] [REF43 Custom] As directed Process Instructions: If no progress note charted, please enter Clinical details in comments. Scheduling Instructions: Questions: My question or request is: patient with inferior stemi with history of statin allergy (rash) - please evaluate for psck9 inhibitor. Referral to Home Health - at DISCHARGE [OQX7296 CPT(R)] As directed Process Instructions: Scheduling Instructions: Comments: DOCUMENTATION FOR VNA SERVICES PATIENT'S LOCATION: [address] [address] (home) Cd Manufacturing Supervisor's Name: Self In discussion with the attending physician, it is certified that this patient is under his/her care and that MD, or an EPIC CADENCE SPECIALISTS, SQL REPORT ANALYST, or PA who is working directly with him/her, had a ihcy-zx-kqpp encounter that meets the physician bejc-sd-rhez encounter requirements with this patient on 12/07/2019. [...] HEALTH CARE AGENCY: [facility], PHONE: [phone] FAX: [phone] Start of care: 24-48 hours after hospital [...] MD [address] / [place] [address] All A agencies which cover the area of patient's residence have been reviewed, either verbally or in writing, and patient/family have chosen the home health care agency noted. Questions: Agency name and contact information: [facility] Patient location post discharge: Home What services are requested: Registered Nurse Physical Therapy Occupational Therapy Start date: Responsible MD post discharge contact info: PCP Discharge References/Attachments Atrial Fibrillation (Citizen [place]) Cardiac Rehabilitation (Citizen [place]) Heart Failure (Citizen [place]) Heart Failure: Limiting Sodium (Citizen [place]) Hemorrhagic Stroke: General Info (Citizen [place]) Smoking: Stopping (Citizen [place]) Stroke Rehabilitation: General Info (Citizen [place]) Pulmonary Embolism (Citizen [place]) Riki Stevens MD PGY-3, Internal Medicine Cardiology S2, #0239 Associated attestation - Paris Dodd MD - 12/09/2019 4:44 PM EDT Cardiology Attending Discharge Addendum I was the assigned attending public relations sales marketing for this clinical encounter. For the purposes [...] complications include novel onset, paroxysmal atrial fibrillation [[id number]: 5] & L-sided diplopia with potential hemineglect [...] My contact information: Paris Matt MD MPH [address], [place] [address] (office); Pager #[phone] Email: documented in this encounter Discharge Instructions Patient InstructionsFiRiki de jesus MD - 12/02/2019 9:56 AM EDT Images from the original note were not included. Why you were hospitalized: You had a heart attack. You received clot-busting medications at another hospital and then at [facility] you had a stent [...] FOR ONE MONTH AND THEN STOP. Your public relations sales marketing may tell you to start this medication again after one year. Clopidogrel (Plavix) 75 mg daily - This medication will help prevent clots from forming in your blood, which will help protect the stent that was placed in your heart vessel. TAKE THIS FOR ONE YEAR ANDTHEN DISCUSS WITH YOUR BLACKSMITH ASSISTANT WHETHER TO STOP. Amiodarone 400mg twice daily [...] follow up: Your primary care provider and public relations sales marketing will manage your blood thinner (apixaban). You do not need lab monitoring of this medication. Diet: Please consume a healthy diet low in cholesterol Follow up Appointments: 12/10/2019 at 3:10PM with PCP Angel Luis Lott Future Appointments Date Time Provider Department Center 12/23/2019 1:30 PM Alfreda Salas APRN [facility] CNATE6S [facility] 12/26/2019 9:40 AM Merlin Sanchez MD [facility] CARD 4A [facility] 12/30/2019 3:40 PM Gretchen Yoon MD [facility] CARD 4A [facility] Future Appointments and Orders Future Appointments and Orders Future Appointments Provider Department Dept Phone 12/23/2019 1:30 PM Alfreda Salas APRN Neurosurgery at [facility] Arrive at: Home [phone] Please do not come in for this visit. Your provider will call you at the number you provided. 12/26/2019 9:40 AM Merlin Sanchez MD Cardiology at [facility] Arrive at: Home [phone] Please do not come in for this visit. Your provider will call you at the number you provided. 12/30/2019 3:40 PM Gretchen Yoon MD Cardiology at [facility] Arrive at: Home [phone] Please do not come in for this visit. Your provider will call you at the number you provided. Future Orders Complete By Expires Referral to Cardiac Rehab [[id number] Custom] As directed Process Instructions: If no progress note charted, please enter Clinical details in comments. Scheduling Instructions: Questions: My question or request is: STEMI. Cardiac rehab at [facility] Referral to [facility] [REF43 Custom] As directed Process Instructions: If no progress note charted, please enter Clinical details in comments. Scheduling Instructions: Questions: My question or request is: patient with inferior stemi with history of statin allergy (rash) - please evaluate for psck9 inhibitor. Referral to Home Health - at DISCHARGE [[id number] CPT(R)] As directed Process Instructions: Scheduling Instructions: Comments: DOCUMENTATION FOR VNA SERVICES PATIENT'S LOCATION: [address] [address] (home) Cd Manufacturing Supervisor's Name: Self In discussion with the attending physician, it is certified that this patient is under his/her care and that MD, or an EPIC CADENCE SPECIALISTS, SQL REPORT ANALYST, or PA who is working directly with him/her, had a sgau-ad-bryw encounter that meets the physician jgqf-vw-toor encounter requirements with this patient on 12/07/2019. [...] HEALTH CARE AGENCY: [facility], PHONE: [phone] FAX: [phone] Start of care: 24-48 hours after hospital [...] MD [address] / [place] [address] All A agencies which cover the area of patient's residence have been reviewed, either verbally or in writing, and patient/family have chosen the home health care agency noted. Questions: Agency name and contact information: [facility] Patient location post discharge: Home What services are requested: Registered Nurse Physical Therapy Occupational Therapy Start date: Responsible MD post discharge contact info: PCP Your PCP: France Lam MD [phone] For questions regarding this document or issues relating to this hospitalization on the Cardiology Service, please contact your inpatient physician through the [facility] . Issues after hours and on weekends will be handled by the Ship Scaler on-call. Patient Instructions: Neurology Your Diagnosis: Left [...] follow-up appointment in the neurology clinic at [facility]. See below for the appointment time. If you do not have an appointment, you will be called with a time/date for this appointment. ??? Primary Care Provider: Please follow up with your Primary Care Provider within one to 2 weeks ofdischarge. AttachmentsThe following attachments cannot be sent through Care Everywhere. Atrial Fibrillation (Citizen [place])Cardiac Rehabilitation (Citizen [place])Heart Failure (Citizen [place])Heart Failure: Limiting Sodium (Citizen [place])Hemorrhagic Stroke: General Info (Citizen [place])Smoking: Stopping (Citizen [place])Stroke Rehabilitation: General Info (Citizen [place])Pulmonary Embolism (Citizen [place])documented in this encounter Medications at Time of [...] consulted in the interim. Vikash Rodriguez Pager: [phone] Paris Dodd MD - 12/08/2019 8:57 AM [...] complications include novel onset, paroxysmal atrial fibrillation [BYF5BP1ZAVX: 5] & L-sided diplopia with potential hemineglect [...] consulted in the interim. Vikash Rodriguez Pager: [phone] Paris Dodd MD - 12/07/2019 9:55 AM [...] complications include novel onset, paroxysmal atrial fibrillation [FGR6RK2GUSP: 5] & L-sided diplopia with potential hemineglect [...] 7 Please see today's progress note from Dr/NAMIAT Aranda for full details but in brief: [...] complications include novel onset, paroxysmal atrial fibrillation [PNU1VL0EFLL: 5] & L-sided diplopia with potential hemineglect [...] complications include novel onset, paroxysmal atrial fibrillation [QMA0KX6VUTP: 5] & L-sided diplopia with potential hemineglect [...] today; additional complications include paroxysmal atrial fibrillation [FLZ9LM3MBWY: 4] c/b possible cardioembolic stroke, ICH from [...] length from neck/greatest diameter to back wall: MAURITANIAN 91, CAU 13: 19 mm CORTES 1, [...] a non-culprit artery. S/P DESx3 in the ryclrrff-ce-byjogy RCA. Aspiration thrombectomy performed, and integrellin bolus [...] complications include novel onset, paroxysmal atrial fibrillation [KKH2PL1REGI: 5] & L-sided diplopia with potential hemineglect [...] R occipital cardioembolic stroke #Paroxysmal Afib with XW6CFZTW2A score of 5 #New segmental bilateral PEs [...] Glasgow MD PGY1, Internal Medicine Cardiology S2, #4780 Associated attestation - Paris Dodd MD - 12/05/2019 2:59 PM EDT I was the assigned attending public relations sales marketing for this clinical encounter. For the purposes [...] 12/04/2019 10:36 AM EDT Office of Care Management(OCM)/Waiter/Waitress Cabin Class(CM)/Discharge Planning Service: Cardiology S2 team CM Bernie Alexander,RN,BSN,MA,ACM pgr [phone] Reviewed record and in Cardiology Rounds with MD team,CMs, remote operations producer, MOLTEN IRON POURER. Pt is anticipated ready for d/c later [...] AD to his PCP and to any [facility] appt for each to [...] complications include novel onset, paroxysmal atrial fibrillation [GYP3YG0JTPM: 4] & L-sided diplopia with potential hemineglect [...] a non-culprit artery. S/P DESx3 in the bcneektt-fy-xshdiz RCA. Aspiration thrombectomy performed, and integrellin bolus [...] complications include novel onset, paroxysmal atrial fibrillation [VYG6XK5RLXR: 5] & L-sided diplopia with potential hemineglect [...] R occipital cardioembolic stroke #Paroxysmal Afib with SM7XBQEI3D score of 5 - No anticoagulation for [...] Glasgow MD PGY1, Internal Medicine Cardiology S2, #1711 I have seen the patient and reviewed [...] in my clinic. Gretchen Yoon MD Pager [phone] Derian Pascual RN - 12/03/2019 9:29 AM [...] Discharge: None Electronically signed: Derian Pascual RN, Waiter/Waitress Cabin Class Pgr: [phone] 12/03/2019 9:29 AM Gretchen Yoon [...] complications include novel onset, paroxysmal atrial fibrillation [XIZ3PH3QPBE: 4] & L-sided diplopia with potential hemineglect [...] a non-culprit artery. S/P DESx3 in the padtvvqu-ax-ecxjsq RCA. Aspiration thrombectomy performed, and integrellin bolus [...] complications include novel onset, paroxysmal atrial fibrillation [GQH4SV8PSOA: 5] & L-sided diplopia with potential hemineglect [...] [facility] with [facility]. Patient voiced strong will to quit smoking now, understood that we have resources available for help. Plan [P]: --Neurologic-- # Concern for Left-Sided Diplopia, r/o Hemineglect # Concern for CVA, last-known well 11/29/19 - MRI showed possible cardioembolic stroke #Afib with ZD2PDLPQ3A score of 5 - Stroke Team Consulted; [...] Anticoagulation/Arrhythmia # Novel Onset, Paroxsymal Atrial Fibrillation [EYJ1PZ8NBKV: 5] - Hold off anticoagulation for at [...] w straight cath prn # Nutrition - [facility] Diet, 2g Na. -- [...] Glasgow MD PGY1, Internal Medicine Cardiology S2, #4111 I have seen the patient and reviewed the resident's above history and I agree with the details as written. The assessment and plan were formulated in discussion with me and I agree with them as documented. Gretchen Yoon MD Pager [phone] Raul Hein RN - 12/03/2019 5:55 AM [...] Negative mcL Appearance UA Clear Clear Spec [place] UA 1.026 1.006 - 1.030 Color UA [...] PGY3 Neurology Resident 12/01/2019 Vascular Neurology Pager [phone] Neurology Attending Attestation I evaluated the patient [...] documented. Deepthi Roman MD Vascular Neurology Standard [facility] Swallow Screen: This screen [...] diet as medical provider deems appropriate. Consider PARTS PERSON consult for full evaluation and diet recommendations. [...] complications include novel onset, paroxysmal atrial fibrillation [QRB1YB8CCMK: 4] & L-sided diplopia with potential hemineglect [...] a non-culprit artery. S/P DESx3 in the gppgniwv-ei-uobmhk RCA. Aspiration thrombectomy performed, and integrellin bolus [...] complications include novel onset, paroxysmal atrial fibrillation [TQG2ZA8CATT: 5] & L-sided diplopia with potential hemineglect [...] Anticoagulation/Arrhythmia # Novel Onset, Paroxsymal Atrial Fibrillation [MQJ0ZY4HREM: 5] - Hold off anticoagulation - pending [...] tamsulosin d/t low BP. # Nutrition - [facility] Diet -- Hematology/Oncology-- # [...] Glasgow MD PGY1, Internal Medicine Cardiology S2, #6328 I have seen the patient and reviewed [...] the ICU team. Gretchen Yoon MD Pager [phone] Natalia Claros APRN - 12/02/2019 8:38 AM [...] - We are signing off. Please page [phone] with any questions or concerns. For questions please call NSGY pager [phone] Natalia Claros APRN 12/02/2019 8:38 AM Clinical Documentation Improvement: Active Hospital Problems Diagnosis ??? Acute ST elevation myocardial infarction (STEMI) of inferior wall ??? Intracranial hemorrhage ??? Hyperlipidemia ??? Tobacco abuse ??? Claudication from peripheral vascular disease, left Resolved Hospital Problems No resolved problems to display. Tello Hsu, ROOFING TECHNICIAN - 12/02/2019 2:06 AM EDT 12/01/192009 Oxygen [...] Scan in afternoon. Upon arrival back in [facility] placed on low flow NC [...] complications include novel onset, paroxysmal atrial fibrillation [BIY0ML6AMME: 4] & L-sided diplopia with potential hemineglect for which CVA evaluationto be pursued. Active Problems/Subjective: - 11/28: admitted for inferior STEMI, RV failure requiring pressor - got lytics, aspirin and plavix load, heparin gtt, and eptifibatide. 3 MACARIO stents to RCA. [place] cath - low wedge & CVP so [...] a non-culprit artery. S/P DESx3 in the stkxwprl-gh-hqobsx RCA. Aspiration thrombectomy performed, and integrellin bolus [...] likely represents a benign hemangioma or venous seveirno. 3. Dental disease as detailed above. 4. [...] complications include novel onset, paroxysmal atrial fibrillation [HBI0YG1AANY: 4] & L-sided diplopia with potential hemineglect [...] Anticoagulation/Arrhythmia # Novel Onset, Paroxsymal Atrial Fibrillation [NBH9UC1CHZZ: 4] - Obtain: TTE - Pending CVA [...] tamsulosin d/t low BP. # Nutrition - [facility] Diet -- Hematology/Oncology-- # [...] MD, PGY1 PGY3, Internal Medicine Cardiology S2, #9273 I have seen the patient and reviewed [...] down the line. Gretchen Yoon MD Pager [phone] ?? Gretchen Yoon MD Pager [phone] Natalia Claros APRN - 12/01/2019 1:33 AM [...] per primary team For questions please call Xeebel pager [phone] Natalia Claros APRN 12/01/2019 7:42 AM Clinical Documentation Improvement: Active Hospital Problems Diagnosis ??? Acute ST elevation myocardial infarction (STEMI) of inferior wall ??? Intracranial hemorrhage ??? Hyperlipidemia ??? Tobacco abuse ??? Claudication from peripheral vascular disease, left Resolved Hospital Problems No resolved problems to display. Tello Hsu, ROOFING TECHNICIAN - 11/30/2019 8:44 PM EDT Respiratory Therapy [...] EDT Narrative:Visited in response to request for Card Mounter services. Pt was awake, alert, oriented and in bed. Assessment:Patient coping positively with stresses of illness/hospitalization at this time. Pt says that he is hoping to get better and pt is living with and has children and grandchildren. Pt haspurpose of life and has reason to get getter and to be with family. Outcome: Provided emotional and spiritual support and encouraging presence. Card Mounter services accepted.Conversation to build trusting relationship.Provided pastoral [...] complications include novel onset, paroxysmal atrial fibrillation [[id number]: 4] & L-sided diplopia with potential hemineglect for which CVA evaluationto be pursued. Active Problems/Subjective: - Overnight, CVP < 12 for which a total of 1 L IVF provided - Today AM, patient complains of subjectively reported, left-sided hemineglect with floaters and diplopia [see: exam]. - Otherwise, c/o neck pain 2/2 R IJ Washburn & L radial A line. Otherwise, denies [...] a non-culprit artery. S/P DESx3 in the ohdvpskt-kl-hishqt RCA. Aspiration thrombectomy performed, and integrellin bolus [...] complications include novel onset, paroxysmal atrial fibrillation [[id number]: 4] & L-sided diplopia with potential hemineglect [...] Anticoagulation/Arrhythmia # Novel Onset, Paroxsymal Atrial Fibrillation [[id number]: 4] - Obtain: TTE to confirm rhythm [...] tamsulosin d/t low BP. # Nutrition - [facility] Diet -- Hematology/Oncology-- # [...] MD, PGY3 PGY3, Internal Medicine Cardiology S2, #[id number] I have seen the patient and reviewed [...] down the line. Gretchen Yoon MD Pager [phone] Paola Capps RN - 11/30/2019 6:57 AM EDT PT still requiring 4 of levo, several attempts to titrate down (maps in 70;s) But maps would drop toless than 65. Pt very restless in bed Raising and lowering head denies pain . Integrillin stopped [id number] when bottle complete , urine tea colored [...] PCP: France Lam MD PCP phone #: [phone] Anesthesiology Physician Assistant: None ID/Chief Complaint: Chest pain History of Present Illness: 74 y.o male with no significant PMH, was in usual state of health until yesterday when he woke up at 4am this morning with severe crushing substernal chest pain 04/10. He took two full strength aspirin and came to [facility] ED. At there was found to [...] and Compazine. He was transferred directly to [facility] via [facility] for further management. Patient had an emergent PCI with 3 MACARIO stents placed to his RCA, with mild disease of LCX (report pending) at [facility]. He was found to be persistently hypotensive requiring Levo up to 10mcg/min. He was transferred to [facility] after the cath procedure. Bedside RHC showed CI 2.12, PAWP 11, PAP 38/15 indicating hypovolemic state. He received 1L bolus of NS with improvement of his blood pressure to 124/61. History of PAD, HLD - had side reactions to statins - so taking niacin and red rye grain. Chronic active smoker with more than 65 pack years. Family history of PA in father and two uncles. He's takingbaby [...] ??? Penicillins Pt doesn't remember reaction ??? Izkcweu-Hdu-Eld Reductase Inhibitors Stiff neck, upset stomach, back pain Family History: Mother: Father: PA 2 Uncles with MIs Social History: Tobacco: Current active smoker 1 ppd. 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 Vitals: Last value Range [...] in the last 7068 hours. Invalid input(s): [id number] Heme: No results for input(s): LDH, HAPTOGLOBIN, [...] OSH prior to transfer and PCI at [facility]. Massive inferior STEMI with troponin level 20, currently in CVCC due to pressor requirement. BedsideRHC demonstrated evidence of elevated right sided heart failure, but his wedge was wnl. He received 1L bolus with improvement of his blood pressure and reduction of his pressor requirement. PLAN: Admit to Cardiology, S2 Team Pager # [phone] #Inferior STEMI, LEYLA 149 - Resolving EKG [...] inferior STEMI s/p lytic therapy. Transferred to [facility] and underwent successful PCI of the RCA with MACARIO x3. Gretchen Yoon MD Pager [phone] documented in this encounter Procedure Notes Juventino [...] to the planned procedure. Hand Hygiene: The newspaper inserter did perform hand hygiene prior to arterial [...] a suspected line-associated infection. Location of Procedure: [facility] Risks and Benefits: The risks [...] to the planned procedure. Hand Hygiene: The newspaper inserter did perform hand hygiene prior to line [...] side:right An Introducer (PSI Kit) was used. [place]. Insertion Side: right. Insertion Site: internal jugular. Catheter Details: Number of Lumens: 1 Catheter Type: heparin-coated The line was placed over a guidewire. Confirmation of Venous Placement: Venous placement was confirmed by transducing the pressure. Introducer Insertion Attempts: 1 Comments: Floating the Washburn-Mo Catheter Attempts: 1 Comments: Sterile Dressing: Biopatch [...] better pt back in SR. Please page [phone] for any more cares or concerns Plan [...] complications include novel onset, paroxysmal atrial fibrillation [[id number]: 5]& L-sided diplopia with potential hemineglect for [...] Total Evaluation Minutes, Occupational Therapy: 10 Pager: [phone] FRANCINE Nuñez Occupational Therapy Rehabilitation Department Plan [...] complications include novel onset, paroxysmal atrial fibrillation [[id number]: 5] & L-sided diplopia with potential hemineglect [...] hand rails). Baseline Mobility: Independent. Drives. 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 Time IN / OUT: 1025-0022 Total Evaluation Minutes, Physical Therapy: 15(gtx1) Barbara Baldwin, PT Pager: [phone] Physical Therapy Inpatient Rehabilitation Department Plan of [...] he receives all he needs through the [facility]. Consult refused. Romain Tran, MSN, RN-, [facility] Tobacco Chairman [facility] Pager #[phone] Plan of Care - Romain Oglesby OT [...] complications include novel onset, paroxysmal atrial fibrillation [[id number]: 5] & L-sided diplopia with potential hemineglect [...] and measurable assessment of functional outcome. Pager: [phone] ROMAIN OGLESBY OT 12/03/2019 Occupational Therapy Rehabilitation [...] in an outpatient cardiac rehabilitation program at [facility] was discussed. Patient agrees to a referral to this program. His has been a cardiac rehab patient at [facility] and he is familiar with [...] complications include novel onset, paroxysmal atrial fibrillation [[id number]: 5] & L-sided diplopia with potential hemineglect [...] hand rails). Baseline Mobility: Independent. Drives. 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 Time IN / OUT: 4118-4898 Total Evaluation Minutes, Physical Therapy: 25(eval, gtx1) Barbara Baldwin, PT Pager: [phone] Physical Therapy Inpatient Rehabilitation Department Consult Note [...] Please contact JOHANNA NOBLES RN on pager [phone] or the wound care team at [phone] or pager [phone] skin and wound care concerns or questions. [...] Salinas would be surrogate decision maker per [place] surrogate decision making law. Any patient receiving carspousee at [facility] must abide by [place] law. The hierarchy for surrogate decisionmaking is: [...] (i) The agent with financial power of transactional attorney or a conservator appointed in accordance [...] Insurance: N/A Prescription Coverage: Yes Preferred Pharmacy: [place], [place] Other: No Primary Care Provider: France Lam MD [phone] Patient/Caregiver Goals of Treatment: Return home Potential Needs for Transition of Care: Rehab/SNF: Based on discussions with the multi-disciplinary healthcare team, the patient would benefit from SNF level of care at discharge. ?? I have met with the patient to discuss discharge planning needs. I have provided the [facility], Officeof Care Management letter from the Cider Press Operator pertaining to rehab referrals. I have also provided a letter describing our affiliations within the [facility] and educated them about their [...] patient have requested referrals to: ?? [facility]. [facility] [address] [place] [address] ?? [address]. [address] , [place] [address] Note routed to Literacy Tutor who will communicate referrals to facilities and provide any required information. Home Health: If therapies recommend home w/ VNA, the patient has been provided a list of Home Health Agencies/DME vendors which serve their preferred geographic area. A letter describing our affiliations was reviewed with them and they were educated about their right to choose where referrals are placed. Patient requests referral to [facility]. PHONE: [phone] FAX: [phone] Referral routed to the Literacy Tutor for matching with agency/vendor and to provide [...] Insured w/ Medicare. Gets medications filled at [facility] in [place], [place]. Son to transport at discharge Plan: Discharge dispo depending on patient's physical recovery; SNF vs home w/ VNA. A member of the Care Management team will continue to monitor progress, follow for continuity of care and assist with transition of care planning. Derian Pascual RN Pager: [phone] Plan of Care - Estefani Encarnacion RN [...] ??? Penicillins Pt doesn't remember reaction ??? Mtxpggd-Qxh-Qzc Reductase Inhibitors Stiff neck, upset stomach, back [...] noncontrast head CT and CT of the stebbins of [place] at 1600 hrs. We will [...] vision concerning for stroke. Patient presented to [facility] in transfer for a [...] ??? Penicillins Pt doesn't remember reaction ??? Lfhuckj-Hmw-Wlo Reductase Inhibitors Stiff neck, upset stomach, back [...] file Gets together: Not on file Attends buddhism service: Not on file Active member of [...] L Elbow flexion 5/5 R, 5/5 L Animal Herder LE: 5/5 R, 5/5 L Hip flexion [...] PGY3 Neurology Resident 11/30/2019 Vascular Neurology Pager [phone] Standard [facility] Swallow Screen: This screen [...] diet as medical provider deems appropriate. Consider PARTS PERSON consult for full evaluation and diet recommendations. [...] Afib admitted s/p thrombolysis and Cath-Stent to [facility] who developed R sided visual symptoms. CT [...] hours. Evan Mejia MD Department of Neurology [facility] Brief Op Note - Gretchen Yoon MD - 11/29/2019 8:38 PM EDT Brief Operative Note Patient Name: Angel Luis Salinas : [id number] MR#: [id number] Case Date: 11/29/2019 Surgeon: Surgeon(s) and Role: * Gretchen Yoon MD - Primary * Aidan Ward MD - Fellow Preoperative diagnosis: Inferior STEMI Postoperative diagnosis: Inferior STEMI Procedure(s) (LRB): CARDIAC CATHETERIZATION (N/A) Findings: Discrete 90% stenosis in the prox-to-mid RCA. Severe diffuse disease in the distal vessel. Discrete LCX stenosis in a non-culprit artery. S/P DESx3 in the zdayuipb-qp-ulphdd RCA. Aspiration thrombectomy performed, and integrellin bolus [...] are i n the results section. CT [place] W STAT 11/30/2019 4:36 Res [...] athologist Signature Potassium 3.9 3.5 - 5.0 [facility] mmol/L [facility] Comment: Please note: ??Patients with [...] Organization Address City/State/[place] [address] (ABNORMAL) Hemogram (12/08/2019 12:39 PM EDT) Analysis Performed At Patho logist Time Signature WBC 9.9 (H) 4.0 - 9.5 [facility] LABORATORY RBC 4.51 (L) 4.58 - [place] OLIVIA 5.54 [facility] x10(6)/[facility] LABORATORY Hemoglobin 13.0 (L) 13.7 - [place] 16.5 gm/dL [facility] Hematocrit 40.5 40.5 - [place] 48.5 % [facility] MCV 89.8 82.9 - [facility] OLIVIA 93.1 [facility] LABORATORY MCH 28.8 27.5 - [place] 32.1 pg [facility] MCHC 32.1 32.0 - [place] 35.7 gm/dL [facility] Platelets 214 145 - 357 [facility] x10(3)/[facility] LABORATORY RDWSD 49.2 (H) 36.0 - [place] 45.0 [facility] LABORATORY RDWCV 15.1 (H) 11.4 - [facility] 13.8 % [facility] MPV 12.1 7.6 - 12.9 [facility] OLIVIA [facility] LABORATORY nRBC % Auto 0.0 % [facility] nRBC Abs Auto 0.000 0.000 - [facility] 0.000 [facility] x10(3)/[facility] LABORATORY Specimen Anatomical Collection Method Collection Time Receive d Time (Source) Location / / Volume Laterality Blood specimen 12/08/2019 12:39 0 (specimen) PM EDT 12:47 PM EDT Resulting Agency Comment Spec In Lab Gretchen Yoon MD HEMATOLOGY ORDERABLES Performing Organization Address City/State/ZIP Code Phon e Number [address] Hepatic Function Panel (12/08/2019 6:28 AM EDT) athologist Signature Total Protein 6.6 6.1 - 8.0 [place] gm/dL [facility] Albumin 3.2 3.2 - 5.2 [place] gm/dL [facility] AST 18 0 - 39 [place] unit/L [facility] ALT 13 0 - 55 [facility] OLIVIA unit/L [facility] Alk Phos 64 40 - 130 [facility] OLIVIA unit/L [facility] Total 0.4 0.2 - 1.3 [place] Bilirubin mg/dL [facility] Bili, Direct 0.1 0.0 - 0.3 [facility] OLIVIA mg/dL [facility] Specimen Anatomical Collection Method Collection Time Receive d Time (Source) Location / / Volume Laterality Blood specimen Venous Draw / 12/08/2019 6:28 AM 2019 6:36 (specimen) Unknown EDT AM EDT Resulting Agency Comment Spec In Lab Riki Stevens MD CHEMISTRY ORDERABLES Performing Organization Address City/[facility]/ZIP Code Phon e Number [address] (ABNORMAL) TSH (12/08/2019 6:28 AM EDT) athologist Signature TSH 5.27 (H) 0.27 - 4.20 [facility] mcIU/mL [facility] Specimen Anatomical Collection Method Collection Time Receive d Time (Source) Location / / Volume Laterality Blood specimen Venous Draw / 12/08/2019 6:28 AM 2019 6:36 (specimen) Unknown EDT AM EDT Resulting Agency Comment Spec In Lab Darrell Glasgow MD CHEMISTRY ORDERABLES Performing Organization Address City/[facility]/ZIP Code Phon e Number [address] Potassium (12/08/2019 6:28 AM EDT) P athologist Signature Potassium 4.2 3.5 - 5.0 [facility] mmol/L [facility] Comment: Please note: ??Patients with [...] Organization Address City/State/[place] [address] (ABNORMAL) Differential, Automated (12/08/2019 12:43 AM EDT) Patholo gist Method Time Signature Neutrophils % 60.7 % [facility] Neutr Abs (ANC) 6.81 (H) 1.70 - [facility] 6.10 [facility] x10(3)/[facility] LABORATORY Lymphocytes % 23.4 % [facility] Lymphocytes Abs 2.6 0.9 - 3.2 [facility] x10(3)/[facility] LABORATORY Monocytes % 10.0 % [facility] Monocyte Abs 1.1 (H) 0.3 - 0.9 [facility] x10(3)/[facility] LABORATORY Eosinophils % 3.7 % [facility] Eosinophils Abs 0.4 0.0 - 0.4 [facility] x10(3)/[facility] LABORATORY Basophils % 1.2 % [facility] Basophils Abs 0.1 0.0 - 0.1 [facility] x10(3)/[facility] LABORATORY Immature Gran % 1.00 % [facility] Comment: Immature granulocytes(IG's)percentage an d absolute count will include metamyelocytes, myelocytes, and promyelo cytes. Blood smears from CBCs yielding IG's will be scanned manually for ana nagy. If this scan disagrees with the automated IG or if promyelocytes are not ed, a manual differential will be performed. Pita Gran Abs 0.11 (H) 0.00 - 0.04 x10(3)/[facility] LABORATORY Specimen Anatomical Collection Method Collection Time Receive d Time (Source) Location / / Volume Laterality Blood specimen 12/08/2019 12:43 0 (specimen) AM EDT 12:52 AM EDT Resulting Agency Comment Spec In Lab Riki Stevens MD HEMATOLOGY ORDERABLES Performing Organization Address City/State/[place] [address] (ABNORMAL) Hemogram (12/08/2019 12:43 AM EDT) Analysis Performed At Patho logist Time Signature WBC 11.2 (H) 4.0 - 9.5 [facility] x10(3)/[facility] LABORATORY RBC 4.46 (L) 4.58 - [facility] OLIVIA 5.54 [facility] x10(6)/[facility] LABORATORY Hemoglobin 13.1 (L) 13.7 - [facility] 16.5 gm/dL [facility] Hematocrit 40.5 40.5 - [facility] OLIVIA 48.5 % [facility] MCV 90.8 82.9 - [facility] 93.1 [facility] LABORATORY MCH 29.4 27.5 - [facility] OLIVIA 32.1 pg [facility] MCHC 32.3 32.0 - [facility] OLIVIA 35.7 gm/dL [facility] Platelets 215 145 - 357 [facility] x10(3)/[facility] LABORATORY RDWSD 49.8 (H) 36.0 - [facility] OLIVIA 45.0 [facility] LABORATORY RDWCV 15.2 (H) 11.4 - [facility] OLIVIA 13.8 % [facility] LABORATORY MPV 12.3 7.6 - 12.9 [facility] LABORATORY nRBC % Auto 0.0 % [facility] LABOR[facility]ORY nRBC Abs Auto 0.000 0.000 - [facility] Healthcare [employer] 0.000 [facility] x10(3)/[facility] LABORATORY Specimen Anatomical Collection Method Collection Time Receive d Time (Source) Location / / Volume Laterality Blood specimen 12/08/2019 12:43 0 (specimen) AM EDT 12:52 AM EDT Resulting Agency Comment Spec In Lab Riki Stevens MD HEMATOLOGY ORDERABLES Performing Organization Address City/State/ZIP Code Phon e Number [address] Magnesium (12/08/2019 12:43 AM EDT) athologist Signature Magnesium 1.01 0.69 - 1.07 [facility] mmol/L [facility] Specimen Anatomical Collection Method Collection Time Receive d Time (Source) Location / / Volume Laterality Blood specimen 12/08/2019 12:43 0 (specimen) AM EDT 12:52 AM EDT Resulting Agency Comment Spec In Lab Gretchen Yoon MD CHEMISTRY ORDERABLES Performing Organization Address City/State/ZIP [place] [address] (ABNORMAL) BMP w/fasting Glucose (12/08/2019 12:43 AM EDT) P athologist Signature Glucose 106 (H) 65 - 99 [facility] Fasting mg/dL [facility] Comment: ?Fasting* Glucose Interpretive C [...] of Diabetes Mellitus, Position Statement from the [place] Diabetes Association. ??Diabete s Care, Volume 33, Supplement 1, Jul 2009 BUN 14 10 - 20 mg/dL [facility] Creatinine 1.16 0.80 - 1.50 mg/dL [facility] LABOR[facility]ORY Sodium 134 (L) 135 - 145 mmol/L [facility] Potassium 4.0 3.5 - 5.0 mmol/L [facility] Comment: Please note: ??Patients with WBC >100,00 0 may have falsely elevated Potassium levels. ??For accurate Potassium quantif ication in these patients send serum separator tube (gold top) for subsequent determinations. ??Contact the Clinical Chemistry Laboratory if there are any qu estions. Chloride 99 98 - 107 mmol/L [facility] CO2 19 (L) 22 - 31 mmol/L [facility] Anion Gap 16 (H) 5 - 15 mmol/L [facility] Calcium 8.9 8.5 - 10.5 mg/dL [facility] Estimated GFR 62 >=60 mL/min/1.73 m?? [facility] Comment: The eGFR was calculated using the CKD-EP I equation. As with all creatinine based estimates of kidney function, eGFR values calculated with the CKD-EPI equation are not accurate in patients wi th acute kidney failure, extremes of body mass or the acutely ill. [email or web address] eGFR 72 >=60 mL/min/1.73 m?? [facility] Comment: The eGFR was calculated using the CKD-EP I equation. As with all creatinine based estimates of kidney function, eGFR values calculated with the CKD-EPI equation are not accurate in patients wi th acute kidney failure, extremes of body mass or the acutely ill. [email or web address] Specimen Anatomical Collection Method Collection Time Receive d Time (Source) Location / / Volume Laterality Blood specimen 12/08/2019 12:43 0 (specimen) AM EDT 12:52 AM EDT Resulting Agency Comment Spec In Lab Gretchen Yoon MD CHEMISTRY ORDERABLES Performing Organization Address City/State/[place] [address] Heparin (unfractionated) Level (12/08/2019 12:43 AM EDT) athologist Signature Heparin UFH 0.60 IU/mL [facility] Comment: Guidelines for therapeutic unfractionate [...] Organization Address City/State/[place] [address] Potassium (12/07/2019 8:39 PM EDT) athologist Signature Potassium 4.1 3.5 - 5.0 [facility] mmol/L [facility] Comment: Please note: ??Patients with [...] MD CHEMISTRY ORDERABLES Performing Organization Address City/[facility]/ZIP [place] [address] Potassium (12/07/2019 4:02 PM EDT) P athologist Signature Potassium 4.0 3.5 - 5.0 [facility] mmol/L [facility] Comment: Please note: ??Patients with [...] MD CHEMISTRY ORDERABLES Performing Organization Address City/[facility]/ZIP [place] [address] (ABNORMAL) Hemogram (12/07/2019 4:02 PM EDT) Analysis Performed At Patho logist Time Signature WBC 17.4 (H) 4.0 - 9.5 [place] x10(3)/[facility] LABORATORY RBC 4.58 4.58 - [place] OLIVIA 5.54 [facility] x10(6)/[facility] LABORATORY Hemoglobin 13.5 (L) 13.7 - [place] OLIVIA 16.5 gm/dL [facility] Hematocrit 40.8 40.5 - [place] OLIVIA 48.5 % [facility] MCV 89.1 82.9 - [place] OLIVIA 93.1 [facility] LABORATORY MCH 29.5 27.5 - [place] OLIVIA 32.1 pg [facility] MCHC 33.1 32.0 - [place] 35.7 gm/dL [facility] Platelets 238 145 - 357 [place] [facility] x10(3)/[facility] LABORATORY RDWSD 48.8 (H) 36.0 - [place] 45.0 [facility] LABORATORY RDWCV 15.0 (H) 11.4 - [facility] 13.8 % [facility] LABORATORY MPV 12.2 7.6 - 12.9 [facility] LABORATORY nRBC % Auto 0.0 % [facility] LABORATORY nRBC Abs Auto 0.000 0.000 - MELINA MARSHOLIVIA 0.000 [facility] x10(3)/[facility] LABORATORY Specimen Anatomical Collection Method Collection Time Receive d Time (Source) Location / / Volume Laterality Blood specimen 12/07/2019 4:02 PM 020 4:08 (specimen) EDT PM EDT Resulting Agency Comment Spec In Lab Grethcen Yoon MD HEMATOLOGY ORDERABLES Performing Organization Address City/[facility] [place] [address] EKG 12 Lead (12/07/2019 [...] (Bezet) Calculated P -12 degrees MUSE SYSTEM [place] Calculated R 10 degrees MUSE SYSTEM [place] Calculated T -138 degrees MUSE SYSTEM [place] INTERPRETATION Supraventricular tachycardia MUSE SYSTEM Low voltage [...] athologist Signature Potassium 4.2 3.5 - 5.0 [facility] mmol/L [facility] Comment: Please note: ??Patients with [...] MD CHEMISTRY ORDERABLES Performing Organization Address City/[facility] [place] [address] Heparin (unfractionated) Level (12/07/2019 11:43 AM EDT) athologist Signature Heparin UFH 0.59 IU/mL [facility] LABORATORY Comment: Guidelines for therapeutic unfractionate [...] MD HEMATOLOGY ORDERABLES Performing Organization Address [facility]/ZIP [place] [address] Heparin (unfractionated) Level (12/07/2019 5:20 AM EDT) P athologist Signature Heparin UFH 0.53 IU/mL [facility] LABORATORY Comment: Guidelines for therapeutic unfractionate [...] Organization Address City/State/ZIP [place] [address] (ABNORMAL) Differential, Automated (12/07/2019 5:20 AM EDT) Patholo gist Method Time Signature Neutrophils % 62.4 % [facility] LABORATORY Neutr Abs (ANC) 5.46 1.70 - [facility] 6.10 [facility] x10(3)/[facility] LABORATORY Lymphocytes % 20.3 % [facility] LABOR[facility]ORY Lymphocytes Abs 1.8 0.9 - 3.2 [facility] x10(3)/[facility] LABORATORY Monocytes % 11.0 % [facility] LABORATORY Monocyte Abs 1.0 (H) 0.3 - 0.9 [facility] x10(3)/[facility] LABORATORY Eosinophils % 4.5 % [facility] LABORATORY Eosinophils Abs 0.4 0.0 - 0.4 [facility] x10(3)/[facility] LABORATORY Basophils % 0.9 % [facility] LABORATORY Basophils Abs 0.1 0.0 - 0.1 [facility] x10(3)/[facility] LABORATORY Immature Gran % 0.90 % [facility] LABORATORY Comment: Immature granulocytes(IG's)percentage an d absolute count will include metamyelocytes, myelocytes, and promyelo cytes. Blood smears from CBCs yielding IG's will be scanned manually for concor dance. If this scan disagrees with the automated IG or if promyelocytes are not ed, a manual differential will be performed. Pita Gran Abs 0.08 (H) 0.00 - 0.04 x10(3)/[facility] LABORATORY Specimen Anatomical Collection Method Collection Time Receive d Time (Source) Location / / Volume Laterality Blood specimen 12/07/2019 5:20 AM 020 5:37 (specimen) EDT AM EDT Resulting Agency Comment Spec In Lab Riki Stevens MD HEMATOLOGY ORDERABLES Performing Organization Address City/State/ZIP Code Phon e Number [place] [id number]OSP[address] LAB[address]ORY Drive (ABNORMAL) Hemogram (12/07/2019 5:20 AM EDT) Analysis Performed At Patho logist Time Signature WBC 8.7 4.0 - 9.5 [facility] x10(3)/[facility] LABORATORY RBC 4.20 (L) 4.58 - [facility] 5.54 [facility] x10(6)/[facility] LABORATORY Hemoglobin 12.3 (L) 13.7 - [facility] 16.5 gm/dL [facility] Hematocrit 37.4 (L) 40.5 - [facility] 48.5 % [facility] MCV 89.0 82.9 - [facility] 93.1 fL [facility] MCH 29.3 27.5 - [facility] 32.1 pg [facility] MCHC 32.9 32.0 - MELINA MONAE 35.7 gm/dL [facility] Platelets 181 145 - 357 MELINA MONAE x10(3)/[facility] LABORATORY RDWSD 47.7 (H) 36.0 - MELINA MONAE 45.0 [facility] LABORATORY RDWCV 14.8 (H) 11.4 - [facility] OLIVIA 13.8 % [facility] MPV 12.3 7.6 - 12.9 MELINA OLIVIA [facility] LABORATORY nRBC % Auto 0.0 % [facility] LABORATORY nRBC Abs Auto 0.000 0.000 - MELINA MONAE 0.000 [facility] x10(3)/[facility] LABORATORY Specimen Anatomical Collection Method Collection Time Receive d Time (Source) Location / / Volume Laterality Blood specimen 12/07/2019 5:20 AM 020 5:37 (specimen) EDT AM EDT Resulting Agency Comment Spec In Lab Riki Stevens MD HEMATOLOGY ORDERABLES Performing Organization Address City/State/ZIP Code Phon e Number [address] Magnesium (12/07/2019 5:20 AM EDT) P athologist Signature Magnesium 0.89 0.69 - 1.07 [facility] mmol/L [facility] LABOR[facility]ORY Specimen Anatomical Collection Method Collection Time Receive d Time (Source) Location / / Volume Laterality Blood specimen 12/07/2019 5:20 AM 020 5:37 (specimen) EDT AM EDT Resulting Agency Comment Spec In Lab Gretchen Yoon MD CHEMISTRY ORDERABLES Performing Organization Address City/State/ZIP Code Phon e Number [address] (ABNORMAL) BMP w/fasting Glucose (12/07/2019 5:20 AM EDT) P athologist Signature Glucose 100 (H) 65 - 99 [facility]/dL [facility] Comment: ?Fasting* Glucose Interpretive C [...] of Diabetes Mellitus, Position Statement from the [place] Diabetes Association. ??Diabete s Care, Volume 33, Supplement 1, Jul 2009 BUN 14 10 - 20 mg/dL [facility] LABORATORY Creatinine 0.83 0.80 - 1.50 mg/dL [facility] LABORATORY Sodium 135 135 - 145 mmol/L [facility] LABORATORY Potassium 3.8 3.5 - 5.0 mmol/L [facility] LABORATORY Comment: Please note: ??Patients with WBC >100,00 0 may have falsely elevated Potassium levels. ??For accurate Potassium quantif ication in these patients send serum separator tube (gold top) for subsequent determinations. ??Contact the Clinical Chemistry Laboratory if there are any qu estions. Chloride 101 98 - 107 mmol/L [facility] LABORATORY CO2 20 (L) 22 - 31 mmol/L [facility] LABOR[facility] Anion Gap 14 5 - 15 mmol/L [facility] LABORATORY Calcium 8.8 8.5 - 10.5 mg/dL [facility] LABORATORY Estimated GFR 87 >=60 mL/min/1.73 m?? [facility] LABORATORY Comment: The eGFR was calculated using the CKD-EP I equation. As with all creatinine based estimates of kidney function, eGFR values calculated with the CKD-EPI equation are not accurate in patients wi th acute kidney failure, extremes of body mass or the acutely ill. [email or web address] eGFR 101 >=60 mL/min/1.73 m?? [facility] LABORATORY Comment: The eGFR was calculated using the CKD-EP I equation. As with all creatinine based estimates of kidney function, eGFR values calculated with the CKD-EPI equation are not accurate in patients wi th acute kidney failure, extremes of body mass or the acutely ill. [email or web address] Specimen Anatomical Collection Method Collection Time Receive d Time (Source) Location / / Volume Laterality Blood specimen 12/07/2019 5:20 AM 020 5:37 (specimen) EDT AM EDT Resulting Agency Comment Spec In Lab Gretchen Yoon MD CHEMISTRY ORDERABLES Performing Organization Address City/[facility] [place] [address] Heparin (unfractionated) Level (12/06/2019 10:14 PM EDT) athologist Signature Heparin UFH 0.29 IU/mL [facility] LABORATORY Comment: Guidelines for therapeutic unfractionate [...] MD HEMATOLOGY ORDERABLES Performing Organization Address City/[facility]/ZIP [place] [address] Head wo Contrast [...] For questions regarding this report, please contact [facility] number below. ? Narrative 12/06/2019 10:06 [...] 4.0 - 9.5 [facility](3[facility] LABORATORY RBC 4.32 (L) 4.58 - [facility] OLIVIA 5.54 [facility] x10(6)/[facility] LABORATORY Hemoglobin 12.5 (L) 13.7 - [facility] 16.[facility] gm/dL [facility] Hematocrit 38.4 (L) 40.5 - [facility] 48.5 % [facility] MCV 88.9 82.9 - [facility] 93[facility]1 [facility] LABORATORY MCH 28.9 27.5 - MELINA OLIVIA 32.1 pg [facility] MCHC 32.6 32.0 - [facility] 35.7 gm/dL [facility] Platelets 194 145 - 357 [facility] x10(3)/[facility] LABORATORY RDWSD 46.9 (H) 36.0 - [facility] 45[facility]0 [facility] LABORATORY RDWCV 14.6 (H) 11.4 - [facility] OLIVIA 13.8 % [facility] MPV 11.9 7.6 - 12.9 [facility] OLIVIA [facility] LABORATORY nRBC % Auto 0.0 % [facility] LABORATORY nRBC Abs Auto 0.000 0.000 - [facility] OLIVIA 0.000 [facility] x10(3)/[facility] LABORATORY Specimen Anatomical Collection Method Collection Time Receive d Time (Source) Location / / Volume Laterality Blood specimen 12/06/2019 4:20 PM 020 4:31 (specimen) EDT PM EDT Resulting Agency Comment Spec In Lab Gretchen Yoon MD HEMATOLOGY ORDERABLES Performing Organization Address City/State/[place] [address] Heparin (unfractionated) Level (12/06/2019 4:20 PM EDT) P athologist Signature Heparin UFH 0.30 IU/mL [facility] LABORATORY Comment: Guidelines for therapeutic unfractionate [...] Organization Address City/State/[place] [address] Heparin (unfractionated) Level (12/06/2019 10:02 AM EDT) athologist Signature Heparin UFH <0.04 IU/mL [facility] LABORATORY Comment: Guidelines for therapeutic unfractionate [...] Address City/State/ZIP Code Phon e Number [address] Magnesium (12/06/2019 3:36 AM EDT) P athologist Signature Magnesium 0.86 0.69 - 1.07 [facility] mmol/L [facility]OR[facility] Specimen Anatomical Collection Method Collection Time Receive d Time (Source) Location / / Volume Laterality Blood specimen 12/06/2019 3:36 AM 020 3:45 (specimen) EDT AM EDT Resulting Agency Comment Spec In Lab Gretchen Yoon MD CHEMISTRY ORDERABLES Performing Organization Address City/State/ZIP [place] [address] (ABNORMAL) BMP w/fasting Glucose (12/06/2019 3:36 AM EDT) P athologist Signature Glucose 103 (H) 65 - 99 [facility] Fasting mg/dL [facility] Comment: ?Fasting* Glucose Interpretive C [...] of Diabetes Mellitus, Position Statement from the [place] Diabetes Association. ??Diabete s Care, Volume 33, Supplement 1, Jul 2009 BUN 20 10 - 20 mg/dL [facility] LABORATORY Creatinine 0.88 0.80 - 1.50 mg/dL [facility] LABORATORY Sodium 136 135 - 145 mmol/L [facility] LABORATORY Potassium 4.0 3.5 - 5.0 mmol/L [facility] LABORATORY Comment: Please note: ??Patients with WBC >100,00 0 may have falsely elevated Potassium levels. ??For accurate Potassium quantif ication in these patients send serum separator tube (gold top) for subsequent determinations. ??Contact the Clinical Chemistry Laboratory if there are any qu estions. Chloride 103 98 - 107 mmol/L [facility]OR[facility]ORY CO2 19 (L) 22 - 31 mmol/L [facility] LABOR[facility]ORY Anion Gap 14 5 - 15 mmol/L [facility] LABORATORY Calcium 8.7 8.5 - 10.5 mg/dL [facility] LABORATORY Estimated GFR 85 >=60 mL/min/1.73 m?? [facility] LABORATORY Comment: The eGFR was calculated using the CKD-EP I equation. As with all creatinine based estimates of kidney function, eGFR values calculated with the CKD-EPI equation are not accurate in patients wi th acute kidney failure, extremes of body mass or the acutely ill. [email or web address] CITYnkf eGFR 99 >=60 mL/min/1.73 m?? [facility] LABORATORY Comment: The eGFR was calculated using the CKD-EP I equation. As with all creatinine based estimates of kidney function, eGFR values calculated with the CKD-EPI equation are not accurate in patients wi th acute kidney failure, extremes of body mass or the acutely ill. [email or web address] [place]nk[facility] Specimen Anatomical Collection Method Collection Time Receive d Time (Source) Location / / Volume Laterality Blood specimen 12/06/2019 3:36 AM 020 3:45 (specimen) EDT AM EDT Resulting Agency Comment Spec In Lab Gretchen Yoon MD CHEMISTRY ORDERABLES Performing Organization Address City/State/ZIP [place] [address] (ABNORMAL) Hemogram (12/06/2019 3:36 AM EDT) Analysis Performed At Patho logist Time Signature WBC 9.2 4.0 - 9.5 [facility] LABORATORY RBC 3.99 (L) 4.58 - MELINA OLIVIA 5.54 [facility] x10(6)/[facility] LABORATORY Hemoglobin 11.9 (L) 13.7 - MELINA OLIVIA 16.5 gm/dL [facility] Hematocrit 35.5 (L) 40.5 - [facility] 48.5 % [facility] MCV 89.0 82.9 - [facility] 93.1 [facility] LABORATORY MCH 29.8 27.5 - MELINA OLIVIA 32.1 pg [facility]OR[facility] MCHC 33.5 32.0 - MELINA OLIVIA 35.7 gm/dL [facility] Platelets 164 145 - 357 [facility] x10(3)/[facility] LABORATORY RDWSD 47.6 (H) 36.0 - MELINA OLIVIA 45.0 [facility] LABORATORY RDWCV 14.7 (H) 11.4 - [facility] OLIVIA 13.8 % [facility] MPV 11.9 7.6 - 12.9 [facility] LABORATORY nRBC % Auto 0.0 % [facility] LABORATORY nRBC Abs Auto 0.000 0.000 - MELINA OLIVIA 0.000 [facility] x10(3)/[facility] LABORATORY Specimen Anatomical Collection Method Collection Time Receive d Time (Source) Location / / Volume Laterality Blood specimen 12/06/2019 3:36 AM 020 3:45 (specimen) EDT AM EDT Resulting Agency Comment Spec In Lab Gretchen Yoon MD HEMATOLOGY ORDERABLES Performing Organization Address City/[facility]/ZIP [place] [address] (ABNORMAL) Differential, Automated (12/05/2019 10:52 PM EDT) [facility] Method Time Signature Neutrophils % 61.9 % [facility] LABORATORY Neutr Abs (ANC) 6.02 1.70 - [facility] 6.10 [facility] x10(3)/[facility] LABORATORY Lymphocytes % 22.4 % [facility] LABORATORY Lymphocytes Abs 2.2 0.9 - 3.2 [facility] x10(3)/[facility] LABORATORY Monocytes % 10.4 % [facility] LABORATORY Monocyte Abs 1.0 (H) 0.3 - 0.9 [facility] x10(3)/[facility] LABORATORY Eosinophils % 4.1 % [facility] LABORATORY Eosinophils Abs 0.4 0.0 - 0.4 [facility] x10(3)/[facility] LABORATORY Basophils % 0.7 % [facility] LABORATORY Basophils Abs 0.1 0.0 - 0.1 [facility] x10(3)/[facility] LABORATORY Immature Gran % 0.50 % [facility] LABORATORY Comment: Immature granulocytes(IG's)percentage an d absolute count will include metamyelocytes, myelocytes, and promyelo cytes. Blood smears from CBCs yielding IG's will be scanned manually for concor dance. If this scan disagrees with the automated IG or if promyelocytes are not ed, a manual differential will be performed. Pita Gran Abs 0.05 (H) 0.00 - 0.04 x10(3)/[facility] LABORATORY Specimen Anatomical Collection Method Collection Time Receive d Time (Source) Location / / Volume Laterality Blood specimen 12/05/2019 10:52 0 (specimen) PM EDT 10:59 PM EDT Resulting Agency Comment Spec In Lab Mandi Barrera MD HEMATOLOGY ORDERABLES Performing Organization Address City/State/[place] [address] (ABNORMAL) Hemogram (12/05/2019 10:52 PM EDT) Analysis Performed At [facility] logist Time Signature WBC 9.7 (H) 4.0 - 9.5 [facility] x10(3)/[facility] LABORATORY RBC 4.07 (L) 4.58 - MELINA WHITTENCOCK 5.54 [facility] x10(6)/[facility] LABORATORY Hemoglobin 11.9 (L) 13.7 - MELINA WHITTENCOCK 16.5 gm/dL [facility] LABORATORY Hematocrit 36.4 (L) 40.5 - MELINA WHITTENCOCK 48.5 % [facility] LABORATORY MCV 89.4 82.9 - [facility] OLIVIA 93.1 [facility] LABORATORY MCH 29.2 27.5 - MELINA WHITTENCOCK 32.1 pg [facility] LABORATORY MCHC 32.7 32.0 - MELINA WHITTENCOCK 35.7 gm/dL [facility]OR[facility]ORY Platelets 167 145 - 357 [facility] x10(3)/[facility] LABORATORY RDWSD 47.7 (H) 36.0 - MELINA WHITTENCOCK 45.0 [facility] RDWCV 14.6 (H) 11.4 - [facility] 13.8 % [facility] LABORATORY MPV 12.1 7.6 - 12.9 [facility] LABORATORY nRBC % Auto 0.0 % [facility] LABORATORY nRBC Abs Auto 0.000 0.000 - [facility] OLIVIA 0.000 [facility] x10(3)/[facility] LABORATORY Specimen Anatomical Collection Method Collection Time Receive d Time (Source) Location / / Volume Laterality Blood specimen 12/05/2019 10:52 0 (specimen) PM EDT 10:59 PM EDT Resulting Agency Comment Spec In Lab Mandi Barrera MD HEMATOLOGY ORDERABLES Performing Organization Address City/State/[place] [address] Heparin (unfractionated) Level (12/05/2019 10:52 PM EDT) P athologist Signature Heparin UFH <0.04 IU/mL [facility] LABORATORY Comment: Guidelines for therapeutic unfractionate [...] Organization Address City/State/ZIP [place] [address] MRI Brain wwo Contrast [...] Time Signature WBC 8.7 4.0 - 9.5 [facility] x10(3)/[facility] LABORATORY RBC 4.17 (L) 4.58 - [facility] 5.54 [facility] x10(6)/[facility] LABORATORY Hemoglobin 12.4 (L) 13.7 - [facility] 16.5 gm/dL [facility] Hematocrit 37.0 (L) 40.5 - [facility] 48.5 % [facility] MCV 88.7 82.9 - [facility] 93.1 [facility] LABORATORY MCH 29.7 27.5 - [facility] 32.1 pg [facility] MCHC 33.5 32.0 - [facility] 35.7 gm/dL [facility] Platelets 173 145 - 357 [facility] x10(3)/[facility] LABORATORY RDWSD 47.3 (H) 36.0 - [facility] 45.0 [facility] LABORATORY RDWCV 14.6 (H) 11.4 - [facility] 13.8 % [facility] LABORATORY MPV 12.1 7.6 - 12.9 [facility] LABORATORY nRBC % Auto 0.0 % [facility] LABORATORY nRBC Abs Auto 0.000 0.000 - [facility] 0.000 [facility] x10(3)/[facility] LABORATORY Specimen Anatomical Collection Method Collection Time Receive d Time (Source) Location / / Volume Laterality Blood specimen 12/05/2019 1:00 PM 020 1:13 (specimen) EDT PM EDT Resulting Agency Comment Spec In Lab Gretchen Yoon MD HEMATOLOGY ORDERABLES Performing Organization Address City/State/[place] [address] EKG 12 Lead (12/05/2019 10:52 AM EDT) Component Value Ref Range Test Analysis Performed Pathologis t Method Time At Signature Ventricular rate 72 BPM MUSE SYSTEM Atrial Rate 72 BPM MUSE SYSTEM P-R Interval 138 ms MUSE SYSTEM QRS Duration 96 ms MUSE SYSTEM Q-T Interval 396 ms MUSE SYSTEM QTC Calculated 433 ms MUSE SYSTEM (Bezet) Calculated P Malakoff 65 degrees MUSE SYSTEM Calculated R [place] 13 degrees MUSE SYSTEM Calculated T [place] 0 degrees MUSE SYSTEM INTERPRETATION Sinus rhythm Occasional Premature ventricular complexe s MUSE SYSTEM Possible Inferior infarct (cited on or before 29-NOV-2019) Abnormal ECG When compared with ECG of 04-DEC-2019 10:43, Sinus rhythm has replaced Atrial fibrillation Vent. rate has decreased BY ??86 BPM Confirmed by MD Ceja Daniel ([id number]) on 12/05/2019 3:55:22 PM Specimen Anatomical Collection Method Collection Time Receive d Time (Source) Location / / Volume Laterality 12/05/2019 10:52 12/05/2019 3:55 AM EDT PM EDT Paris Lagos MD ECG ORDERABLES Performing Organization Address City/State/ZIP Code Phon e Number MUSE SYSTEM Duplex Study for DVT, Bilat legs (12/05/2019 7:00 AM EDT) Component Value Ref Test Analysis Performed At [facility] Range Method Time Signature VB Text Department: Vascular Surgery Lab VASCUBASE Report Patient: [id number] (ANGEL LUIS SALINAS) CPT: 94629 ICD10: I26.99 Referring Physician: GRETCHEN YOON ?? [...] athologist Signature Magnesium 0.87 0.69 - 1.07 [facility] mmol/L [facility] LABORATORY Specimen Anatomical Collection Method Collection Time Receive d Time (Source) Location / / Volume Laterality Blood specimen 12/05/2019 4:18 AM 020 4:31 (specimen) EDT AM EDT Resulting Agency Comment Spec In Lab Gretchen Yoon MD CHEMISTRY ORDERABLES Performing Organization Address City/[facility]/ZIP [place] [address] (ABNORMAL) BMP w/fasting Glucose (12/05/2019 4:18 AM EDT) P athologist Signature Glucose 104 (H) 65 - 99 [facility] Fasting mg/dL [facility] LABORATORY Comment: ?Fasting* Glucose Interpretive C [...] of Diabetes Mellitus, Position Statement from the [place] Diabetes Association. ??Diabete s Care, Volume 33, Supplement 1, Jul 2009 BUN 21 (H) 10 - 20 mg/dL [facility] LABORATORY Creatinine 1.02 0.80 - 1.50 mg/dL [facility] LABORATORY Sodium 136 135 - 145 mmol/L [facility] LABORATORY Potassium 3.9 3.5 - 5.0 mmol/L [facility] LABORATORY Comment: Please note: ??Patients with WBC >100,00 0 may have falsely elevated Potassium levels. ??For accurate Potassium quantif ication in these patients send serum separator tube (gold top) for subsequent determinations. ??Contact the Clinical Chemistry Laboratory if there are any qu estions. Chloride 103 98 - 107 mmol/L [facility] LABORATORY CO2 21 (L) 22 - 31 mmol/L [facility] Anion Gap 12 5 - 15 mmol/L [facility] Calcium 8.8 8.5 - 10.5 mg/dL [facility] Estimated GFR 73 >=60 mL/min/1.73 m?? [facility] Comment: The eGFR was calculated using the CKD-EP I equation. As with all creatinine based estimates of kidney function, eGFR values calculated with the CKD-EPI equation are not accurate in patients wi th acute kidney failure, extremes of body mass or the acutely ill. [email or web address] CITYnkf eGFR 84 >=60 mL/min/1.73 m?? [facility] Comment: The eGFR was calculated using the CKD-EP I equation. As with all creatinine based estimates of kidney function, eGFR values calculated with the CKD-EPI equation are not accurate in patients wi th acute kidney failure, extremes of body mass or the acutely ill. [email or web address] CITYnkf Specimen Anatomical Collection Method Collection Time Receive d Time (Source) Location / / Volume Laterality Blood specimen 12/05/2019 4:18 AM 020 4:31 (specimen) EDT AM EDT Resulting Agency Comment Spec In Lab Gretchen Yoon MD CHEMISTRY ORDERABLES Performing Organization Address City/State/[place] [address] (ABNORMAL) Hemogram (12/05/2019 4:18 AM EDT) Analysis Performed At Patho logist Time Signature WBC 8.6 4.0 - 9.5 [facility] x10(3)/[facility] LABORATORY RBC 4.28 (L) 4.58 - [place] OLIVIA 5.54 [facility] x10(6)/[facility] LABORATORY Hemoglobin 12.4 (L) 13.7 - [facility] 16.[facility] gm/dL [facility] Hematocrit 37.3 (L) 40.5 - [facility] 48.5 % [facility] MCV 87.1 82.9 - [facility] 93.1 [facility] LABORATORY MCH 29.0 27.5 - [facility] 32.1 pg [facility] MCHC 33.2 32.0 - [facility] 35.7 gm/dL [facility] Platelets 163 145 - 357 [facility] x10(3)/[facility] LABORATORY RDWSD 46.4 (H) 36.0 - [facility]0 [facility] LABORATORY RDWCV 14.4 (H) 11.4 - [facility] 13.8 % [facility] MPV 11.7 7.6 - 12.9 [facility] LABORATORY nRBC % Auto 0.0 % [facility] nRBC Abs Auto 0.000 0.000 - [facility] 0.000 [facility] x10(3)/[facility] LABORATORY Specimen Anatomical Collection Method Collection Time Receive d Time (Source) Location / / Volume Laterality Blood specimen 12/05/2019 4:18 AM 020 4:31 (specimen) EDT AM EDT Resulting Agency Comment Spec In Lab Gretchen Yoon MD HEMATOLOGY ORDERABLES Performing Organization Address City/State/[place] [address] Cardiac for Morphology [...] For questions regarding this report, please contact [facility] number below. ? Narrative 12/04/2019 6:16 [...] from neck/greatest puja meter to back wall: MAURITANIAN 91, CAU 13: ??19 mm CORTES ??1, [...] from neck/greatest puja meter to back wall: MAURITANIAN 91, CAU 13: 19 mm CORTES 1, [...] Time Signature WBC 8.9 4.0 - 9.5 [facility] OLIVIA x10(3)/[facility] LABORATORY RBC 4.69 4.58 - [facility] OLIVIA 5.54 [facility] x10(6)/[facility] LABORATORY Hemoglobin 13.5 (L) 13.7 - [facility] 16.5 gm/dL [facility] Hematocrit 41.7 40.5 - [facility] OLIVIA 48.5 % [facility] MCV 88.9 82.9 - [facility] 93.1 fL [facility] MCH 28.8 27.5 - [place] OLIVIA 32.1 pg [facility] MCHC 32.4 32.0 - [facility] OLIVIA 35.7 gm/dL [facility] Platelets 196 145 - 357 [facility] x10(3)/[facility] LABORATORY RDWSD 46.7 (H) 36.0 - [place] OLIVIA 45.0 [facility] LABORATORY RDWCV 14.5 (H) 11.4 - [place] OLIVIA 13.8 % [facility] MPV 12.1 7.6 - 12.9 M[place] MONAE [facility] LABORATORY nRBC % Auto 0.0 % [facility] nRBC Abs Auto 0.000 0.000 - [place] MONAE 0.000 [facility] x10(3)/[facility] LABORATORY Specimen Anatomical Collection Method Collection Time Receive d Time (Source) Location / / Volume Laterality Blood specimen 12/04/2019 12:55 0 1:06 (specimen) PM EDT PM EDT Resulting Agency Comment Spec In Lab Gretchen Yoon MD HEMATOLOGY ORDERABLES Performing Organization Address City/[facility]/ZIP [place] [address] EKG 12 Lead (12/04/2019 10:43 AM EDT) Component Value Ref Range Test Analysis Performed Pathologis t Method Time At Signature Ventricular rate 158 BPM MUSE SYSTEM Atrial Rate 102 BPM MUSE SYSTEM QRS Duration 92 ms MUSE SYSTEM Q-T Interval 294 ms MUSE SYSTEM QTC Calculated 476 ms MUSE SYSTEM (Bezet) Calculated R [place] 17 degrees MUSE SYSTEM Calculated T [place] 90 degrees MUSE SYSTEM INTERPRETATION Atrial fibrillation with rapid ventricular response MUSE SYSTEM Possible Inferior infarct (cited on or before 29-NOV-2019) Abnormal ECG When compared with ECG of 30-NOV-2019 21:07, Atrial fibrillation has replaced Sinus rhythm Vent. rate has increased BY ??65 BPM Confirmed by MD Ceja Daniel ([id number]) on 12/05/2019 8:59:44 AM Specimen Anatomical Collection Method Collection Time Receive d Time (Source) Location / / Volume Laterality 12/04/2019 10:43 12/05/2019 8:59 AM EDT AM EDT Gretchen Yoon MD ECG ORDERABLES Performing Organization Address City/State/ZIP Code Phon e Number MUSE SYSTEM (ABNORMAL) Magnesium (12/04/2019 4:28 AM EDT) P athologist Signature Magnesium 1.17 (H) 0.69 - 1.07 [facility] mmol/L [facility] Specimen Anatomical Collection Method Collection Time Receive d Time (Source) Location / / Volume Laterality Blood specimen 12/04/2019 4:28 AM 020 4:40 (specimen) EDT AM EDT Resulting Agency Comment Spec In Lab Gretchen Yoon MD CHEMISTRY ORDERABLES Performing Organization Address City/State/[place] [address] (ABNORMAL) BMP w/fasting Glucose (12/04/2019 4:28 AM EDT) athologist Signature Glucose 108 (H) 65 - 99 [facility] Fasting mg/dL [facility] Comment: ?Fasting* Glucose Interpretive C [...] of Diabetes Mellitus, Position Statement from the [place] Diabetes Association. ??Diabete s Care, Volume 33, Supplement 1, Jul 2009 BUN 19 10 - 20 mg/dL [facility] Creatinine 0.89 0.80 - 1.50 mg/dL [facility] Sodium 135 135 - 145 mmol/L [facility] Potassium 4.2 3.5 - 5.0 mmol/L [facility] Comment: Please note: ??Patients with WBC >100,00 0 may have falsely elevated Potassium levels. ??For accurate Potassium quantif ication in these patients send serum separator tube (gold top) for subsequent determinations. ??Contact the Clinical Chemistry Laboratory if there are any qu estions. Chloride 104 98 - 107 mmol/L [facility] CO2 19 (L) 22 - 31 mmol/L [facility] Anion Gap 12 5 - 15 mmol/L [facility] Calcium 8.5 8.5 - 10.5 mg/dL [facility] Estimated GFR 85 >=60 mL/min/1.73 m?? [facility] Comment: The eGFR was calculated using the CKD-EP I equation. As with all creatinine based estimates of kidney function, eGFR values calculated with the CKD-EPI equation are not accurate in patients wi th acute kidney failure, extremes of body mass or the acutely ill. [email or web address] CITYnk eGFR 98 >=60 mL/min/1.73 m?? [facility] Comment: The eGFR was calculated using the CKD-EP I equation. As with all creatinine based estimates of kidney function, eGFR values calculated with the CKD-EPI equation are not accurate in patients wi th acute kidney failure, extremes of body mass or the acutely ill. [email or web address] CITYnkf Specimen Anatomical Collection Method Collection Time Receive d Time (Source) Location / / Volume Laterality Blood specimen 12/04/2019 4:28 AM 020 4:40 (specimen) EDT AM EDT Resulting Agency Comment Spec In Lab Gretchen Yoon MD CHEMISTRY ORDERABLES Performing Organization Address City/State/ZIP [place] [address] (ABNORMAL) Hemogram (12/04/2019 4:28 AM EDT) Analysis Performed At Patho logist Time Signature WBC 7.8 4.0 - 9.5 [facility] x10(3)/[facility] LABORATORY RBC 4.10 (L) 4.58 - [facility] 5.54 [facility] x10(6)/[facility] LABORATORY Hemoglobin 12.0 (L) 13.7 - [facility] 16.5 gm/dL [facility] Hematocrit 36.5 (L) 40.5 - [facility] 48.5 % [facility] MCV 89.0 82.9 - [facility] 93.1 fL [facility] MCH 29.3 27.5 - [place] MONAE 32.1 pg [facility] MCHC 32.9 32.0 - [place] MONAE 35.7 gm/dL [facility] Platelets 151 145 - 357 [place] MARSHLOIVIA x10(3)/[facility] LABORATORY RDWSD 46.9 (H) 36.0 - [place] MONAE 45.0 [facility] LABORATORY RDWCV 14.4 (H) 11.4 - [place] MONAE 13.8 % [facility] MPV 12.2 7.6 - 12.9 [place] MONAE fL [facility] nRBC % Auto 0.0 % [facility] nRBC Abs Auto 0.000 0.000 - [place] MONAE 0.000 [facility] x10(3)/[facility] LABORATORY Specimen Anatomical Collection Method Collection Time Receive d Time (Source) Location / / Volume Laterality Blood specimen 12/04/2019 4:28 AM 020 4:40 (specimen) EDT AM EDT Resulting Agency Comment Spec In Lab Gretchen Yoon MD HEMATOLOGY ORDERABLES Performing Organization Address City/[facility]/ZIP Code Phon e Number [address] Potassium (12/03/2019 7:55 PM EDT) athologist Signature Potassium 3.9 3.5 - 5.0 [facility] mmol/L [facility] Comment: Please note: ??Patients with [...] Address City/State/ZIP Code Phon e Number [address] Potassium (12/03/2019 1:57 PM EDT) athologist Signature Potassium 3.7 3.5 - 5.0 [place] mmol/L [facility] Comment: Please note: ??Patients with [...] Organization Address City/State/[place] [address] (ABNORMAL) Hemogram (12/03/2019 1:57 PM EDT) Analysis Performed At Patho logist Time Signature WBC 8.8 4.0 - 9.5 [facility] [employer] x10(3)/[facility] LABORATORY RBC 4.27 (L) 4.58 - [place] OLIVIA 5.54 [facility] x10(6)/[facility] LABORATORY Hemoglobin 12.5 (L) 13.7 - [place] OLIVIA 16.5 gm/dL [facility] Hematocrit 37.5 (L) 40.5 - [place] OLIVIA 48.5 % [facility] MCV 87.8 82.9 - [place] OLIVIA 93.1 [facility] LABORATORY MCH 29.3 27.5 - [place] OLIVIA 32.1 pg [facility] MCHC 33.3 32.0 - [place] OLIVIA 35.7 gm/dL [facility] Platelets 158 145 - 357 [facility] x10(3)/[facility] LABORATORY RDWSD 46.9 (H) 36.0 - [place] OLIVIA 45.0 [facility] LABORATORY RDWCV 14.5 (H) 11.4 - [place] OLIVIA 13.8 % [facility] MPV 12.2 7.6 - 12.9 [place] OLIVIA [facility] LABORATORY nRBC % Auto 0.0 % [facility] nRBC Abs Auto 0.000 0.000 - [place] OLIVIA 0.000 [facility] x10(3)/[facility] LABORATORY Specimen Anatomical Collection Method Collection Time Receive d Time (Source) Location / / Volume Laterality Blood specimen 12/03/2019 1:57 PM 020 2:21 (specimen) EDT PM EDT Resulting Agency Comment Spec In Lab Gretchen Yoon MD HEMATOLOGY ORDERABLES Performing Organization Address City/State/ZIP Code Phon e Number [address] Magnesium (12/03/2019 4:02 AM EDT) athologist Signature Magnesium 0.79 0.69 - 1.07 [facility] mmol/L [facility] Specimen Anatomical Collection Method Collection Time Receive d Time (Source) Location / / Volume Laterality Blood specimen 12/03/2019 4:02 AM 020 4:16 (specimen) EDT AM EDT Resulting Agency Comment Spec In Lab Gretchen Yoon MD CHEMISTRY ORDERABLES Performing Organization Address City/State/ZIP [place] [address] (ABNORMAL) BMP w/fasting Glucose (12/03/2019 4:02 AM EDT) P athologist Signature Glucose 100 (H) 65 - 99 [facility] Fasting mg/dL [facility] Comment: ?Fasting* Glucose Interpretive C [...] of Diabetes Mellitus, Position Statement from the [place] Diabetes Association. ??Diabete s Care, Volume 33, Supplement 1, Jul 2009 BUN 17 10 - 20 mg/dL [facility] Creatinine 0.95 0.80 - 1.50 mg/dL [facility] Sodium 136 135 - 145 mmol/L [facility] Potassium 3.4 (L) 3.5 - 5.0 mmol/L [facility] Comment: Please note: ??Patients with WBC >100,00 0 may have falsely elevated Potassium levels. ??For accurate Potassium quantif ication in these patients send serum separator tube (gold top) for subsequent determinations. ??Contact the Clinical Chemistry Laboratory if there are any qu estions. Chloride 103 98 - 107 mmol/L [facility] CO2 18 (L) 22 - 31 mmol/L [facility] Anion Gap 15 5 - 15 mmol/L [facility] Calcium 8.3 (L) 8.5 - 10.5 mg/dL [facility] Estimated GFR 79 >=60 mL/min/1.73 m?? [facility] Comment: The eGFR was calculated using the CKD-EP I equation. As with all creatinine based estimates of kidney function, eGFR values calculated with the CKD-EPI equation are not accurate in patients wi th acute kidney failure, extremes of body mass or the acutely ill. [email or web address] CITYnkf eGFR 92 >=60 mL/min/1.73 m?? [facility] Comment: The eGFR was calculated using the CKD-EP I equation. As with all creatinine based estimates of kidney function, eGFR values calculated with the CKD-EPI equation are not accurate in patients wi th acute kidney failure, extremes of body mass or the acutely ill. [email or web address] Specimen Anatomical Collection Method Collection Time Receive d Time (Source) Location / / Volume Laterality Blood specimen 12/03/2019 4:02 AM 020 4:16 (specimen) EDT AM EDT Resulting Agency Comment Spec In Lab Gretchen Yoon MD CHEMISTRY ORDERABLES Performing Organization Address City/State/[place] [address] (ABNORMAL) Hemogram (12/03/2019 4:02 AM EDT) Analysis Performed At Patho logist Time Signature WBC 9.1 4.0 - 9.5 [facility] x10(3)/[facility] LABORATORY RBC 4.01 (L) 4.58 - [facility] 5[facility] x10(6)/[facility] LABORATORY Hemoglobin 11.8 (L) 13.7 - [facility] 16.5 gm/dL [facility] Hematocrit 35.6 (L) 40.5 - [facility] 48.5 % [facility] MCV 88.8 82.9 - [facility] 93.1 [facility] LABORATORY MCH 29.4 27.5 - [facility] 32.1 pg [facility] MCHC 33.1 32.0 - [facility] 35.7 gm/dL [facility] Platelets 130 (L) 145 - 357 [facility] x10(3)/[facility] LABORATORY RDWSD 46.6 (H) 36.0 - [facility] 45.0 [facility] LAB[facility]ATORY RDWCV 14.4 (H) 11.4 - [facility] 13.8 % [facility] MPV 12.4 7.6 - 12.9 [facility] LABORATORY nRBC % Auto 0.0 % [facility] nRBC Abs Auto 0.000 0.000 - [facility] 0.000 [facility] x10(3)/[facility] LABORATORY Specimen Anatomical Collection Method Collection Time Receive d Time (Source) Location / / Volume Laterality Blood specimen 12/03/2019 4:02 AM 020 4:16 (specimen) EDT AM EDT Resulting Agency Comment Spec In Lab Gretchen Yoon MD HEMATOLOGY ORDERABLES Performing Organization Address City/State/[place] [address] XR Chest One View [...] Signature WBC 10.6 (H) 4.0 - 9.5 [facility] x10(3)/[facility] LABORATORY RBC 4.00 (L) 4.58 - [facility] 5.54 [facility] x10(6)/[facility] LABORATORY Hemoglobin 11.9 (L) 13.7 - [facility] 16.5 gm/dL [facility] Hematocrit 35.7 (L) 40.5 - [facility] 48.5 % [facility] MCV 89.3 82.9 - [facility] 93.1 [facility] LABORATORY MCH 29.8 27.5 - [facility] 32.1 pg [facility] MCHC 33.3 32.0 - [facility] 35.7 gm/dL [facility] Platelets 120 (L) 145 - 357 [facility] x10(3)/[facility] LABORATORY RDWSD 47.5 (H) 36.0 - [facility] 45.0 [facility] LAB[facility]ATORY RDWCV 14.6 (H) 11.4 - [facility] 13.8 % [facility] MPV 12.0 7.6 - 12.9 [facility] LABORATORY nRBC % Auto 0.0 % [facility] nRBC Abs Auto 0.000 0.000 - [facility] 0.000 [facility] x10(3)/[facility] LABORATORY Specimen Anatomical Collection Method Collection Time Receive d Time (Source) Location / / Volume Laterality Blood specimen 12/02/2019 12:50 0 1:22 (specimen) PM EDT PM EDT Resulting Agency Comment Spec In Lab Gretchen Yoon MD HEMATOLOGY ORDERABLES Performing Organization Address City/State/[place] [address] Blue Tube HOLD (12/02/2019 4:55 AM EDT) P athologist Signature Blue Hold Sample in [facility] lab. [facility]ORY Specimen Anatomical Collection Method Collection Time Receive d Time (Source) Location / / Volume Laterality Blood specimen Venous Draw / 12/02/2019 4:55 AM 2019 5:03 (specimen) Unknown EDT AM EDT Darrell Glasgow MD HEMATOLOGY ORDERABLES Performing Organization Address City/State/ZIP Code Phon e Number [address] Magnesium (12/02/2019 4:55 AM EDT) athologist Signature Magnesium 0.85 0.69 - 1.07 [facility] mmol/L [facility]ORY Specimen Anatomical Collection Method Collection Time Receive d Time (Source) Location / / Volume Laterality Blood specimen 12/02/2019 4:55 AM 020 5:02 (specimen) EDT AM EDT Resulting Agency Comment Spec In Lab Gretchen Yoon MD CHEMISTRY ORDERABLES Performing Organization Address City/[facility]/ZIP [place] [address] (ABNORMAL) BMP w/fasting Glucose (12/02/2019 4:55 AM EDT) athologist Signature Glucose 114 (H) 65 - 99 [facility] Fasting mg/dL [facility] Comment: ?Fasting* Glucose Interpretive C [...] of Diabetes Mellitus, Position Statement from the [place] Diabetes Association. ??Diabete s Care, Volume 33, Supplement 1, Jul 2009 BUN 13 10 - 20 mg/dL [facility] Creatinine 0.93 0.80 - 1.50 mg/dL [facility] Sodium 135 135 - 145 mmol/L [facility] Potassium 3.7 3.5 - 5.0 mmol/L [facility] Comment: Please note: ??Patients with WBC >100,00 0 may have falsely elevated Potassium levels. ??For accurate Potassium quantif ication in these patients send serum separator tube (gold top) for subsequent determinations. ??Contact the Clinical Chemistry Laboratory if there are any qu estions. Chloride 105 98 - 107 mmol/L [facility] CO2 18 (L) 22 - 31 mmol/L [facility] Anion Gap 12 5 - 15 mmol/L [facility] Calcium 8.1 (L) 8.5 - 10.5 mg/dL [facility] Estimated GFR 81 >=60 mL/min/1.73 m?? [facility] Comment: The eGFR was calculated using the CKD-EP I equation. As with all creatinine based estimates of kidney function, eGFR values calculated with the CKD-EPI equation are not accurate in patients wi th acute kidney failure, extremes of body mass or the acutely ill. [email or web address] CITYnkf eGFR 94 >=60 mL/min/1.73 m?? [facility] Comment: The eGFR was calculated using the CKD-EP I equation. As with all creatinine based estimates of kidney function, eGFR values calculated with the CKD-EPI equation are not accurate in patients wi th acute kidney failure, extremes of body mass or the acutely ill. [email or web address] CITYnkf Specimen Anatomical Collection Method Collection Time Receive d Time (Source) Location / / Volume Laterality Blood specimen 12/02/2019 4:55 AM 020 5:02 (specimen) EDT AM EDT Resulting Agency Comment Spec In Lab Gretchen Yoon MD CHEMISTRY ORDERABLES Performing Organization Address City/State/[place] [address] (ABNORMAL) Hemogram (12/02/2019 4:55 AM EDT) Analysis Performed At Patho logist Time Signature WBC 9.3 4.0 - 9.5 [facility] x10(3)/[facility] LABORATORY RBC 3.71 (L) 4.58 - [place] OLIVIA 5.54 [facility] x10(6)/[facility] LABORATORY Hemoglobin 10.8 (L) 13.7 - [facility] 16.5 gm/dL [facility] Hematocrit 33.1 (L) 40.5 - [facility] 48.5 % [facility] MCV 89.2 82.9 - [facility] 93.1 [facility] LABORATORY MCH 29.1 27.5 - [facility] 32.1 pg [facility] MCHC 32.6 32.0 - [facility] 35.7 gm/dL [facility] Platelets 93 (L) 145 - 357 [facility] x10(3)/[facility] LABORATORY RDWSD 47.1 (H) 36.0 - [facility] 45.0 [facility] LABORATORY RDWCV 14.6 (H) 11.4 - [facility] 13.8 % [facility] LABORATORY MPV 11.7 7.6 - 12.9 [facility] LABORATORY nRBC % Auto 0.0 % [facility]OR[facility]ORY nRBC Abs Auto 0.000 0.000 - [facility] 0.000 [facility] x10(3)/[facility] LABORATORY Specimen Anatomical Collection Method Collection Time Receive d Time (Source) Location / / Volume Laterality Blood specimen 12/02/2019 4:55 AM 020 5:02 (specimen) EDT AM EDT Resulting Agency Comment Spec In Lab Gretchen Yoon MD HEMATOLOGY ORDERABLES Performing Organization Address City/State/[place] [address] Transfuse 1 unit platelets, [...] For questions regarding this report, please contact [facility] number below. ? Electronically signed by: Angel Luis Barboza MD, [facility] ([phone]), at 12/01/2019 8:02 PM Narrative 12/01/2019 8:02 [...] For questions regarding this report, please contact [facility] number below. Electronically signed by: Angel Luis Barboza MD, [facility] ([phone]), at 12/01/2019 8:02 PM Gretchen Yoon MD IMG MRI ORDERABLES Prepare Platelets, Apheresis (12/01/2019 6:20 PM EDT) P athologist Signature Dispensed? Yes [facility] Specimen Anatomical Collection Method Collection Time Receive d Time (Source) Location / / Volume Laterality Blood specimen 12/01/2019 6:20 PM 020 6:18 (specimen) EDT PM EDT Gretchen Yoon MD BLOOD BANK ORDERABLES Performing Organization Address City/State/ZIP Code Phon e Number [place] [id number]OSP[address] LAB[address]ORY [address] Duplex for DVT, Arm, Unilat (12/01/2019 5:08 PM EDT) Component Value Ref Test Analysis Performed At Patholo gist Range Method Time Signature VB Text Department: Vascular Surgery Lab VASCUBASE Report Patient: [id number] (ANGEL LUIS SALINAS) CPT: 69454 ICD10: R60.0 Referring Physician: GRETCHEN YOON ?? [...] For questions regarding this report, please contact [facility] number below. ? Narrative 12/01/2019 3:53 PM EDT EXAMINATION: CT HEAD WO CONTRAST (GENERIC) CLINICAL HISTORY: Headache, intracranial hemorrhage suspected Serial CT scan: please assess for propag ation of known ICH noted on prior Head CT/imaging. TECHNIQUE: CT head performed without intravenous co ntrast administration. COMPARISON: Head CT 11/30/2019. CT angiogram of the [place] 11/01. FINDINGS: Ventricles are normal in size. Basal cis terns are patent. Unchanged hyperdense 2.3 x 0.7 x 0.6 cm tubular hemorrhage projecting along the course of the left optic tract (axial se [facility] 2 image 16), consistent with intraparenchymal hematoma. [...] Head CT 11/30/2019. CT angiogram of the [place] 11/01. FINDINGS: Ventricles are normal [...] Scan, Peripheral Blood (12/01/2019 12:51 PM EDT) [facility] Method Time Signature Plat Estimate Decreased [facility] RBC Morphology Normal [facility] Giant Less than 1 /HPF [facility] Platelets [facility] Specimen Anatomical Collection Method Collection Time Receive d Time (Source) Location / / Volume Laterality Blood specimen 12/01/2019 12:51 0 1:05 (specimen) PM EDT PM EDT Resulting Agency Comment Spec In Lab Riki Stevens MD HEMATOLOGY ORDERABLES Performing Organization Address City/State/ZIP [place] [address] (ABNORMAL) Differential, Automated (12/01/2019 12:51 PM EDT) [facility] Method Time Signature Neutrophils % 74.9 % [facility] Neutr Abs (ANC) 6.34 (H) 1.70 - [facility] 6.10 [facility] x10(3)/[facility] LABORATORY Lymphocytes % 11.4 % [facility] Lymphocytes Abs 1.0 0.9 - 3.2 [facility] x10(3)/[facility] LABORATORY Monocytes % 12.4 % [facility] Monocyte Abs 1.0 (H) 0.3 - 0.9 [facility] x10(3)/[facility] LABORATORY Eosinophils % 0.4 % [facility] Eosinophils Abs 0.0 0.0 - 0.4 [facility] x10(3)/[facility] LABORATORY Basophils % 0.4 % [facility] Basophils Abs 0.0 0.0 - 0.1 [facility] x10(3)/[facility] LABORATORY Immature Gran % 0.50 % [...] Pita Gran Abs 0.04 0.00 - 0.04 x10(3)/[facility] MAR Y [facility] LABORATORY Specimen Anatomical Collection Method Collection Time Receive d Time (Source) Location / / Volume Laterality Blood specimen 12/01/2019 12:51 0 1:05 (specimen) PM EDT PM EDT Resulting Agency Comment Spec In Lab Riki Stevens MD HEMATOLOGY ORDERABLES Performing Organization Address City/State/[place] [address] (ABNORMAL) Hemogram (12/01/2019 12:51 PM EDT) Analysis Performed At Patho logist Time Signature WBC 8.4 4.0 - 9.5 [facility] x10(3)/[facility] LABORATORY RBC 3.69 (L) 4.58 - [facility] 5.54 [facility] x10(6)/[facility] LABORATORY Hemoglobin 10.8 (L) 13.7 - [facility] 16.5 gm/dL [facility] Hematocrit 32.4 (L) 40.5 - [facility] 48.5 % [facility] MCV 87.8 82.9 - [facility] 93.1 [facility] LABORATORY MCH 29.3 27.5 - [facility] OLIVIA 32.1 pg [facility] MCHC 33.3 32.0 - [facility] 35.7 gm/dL [facility] Platelets 72 (L) 145 - 357 [facility] x10(3)/[facility] LABORATORY RDWSD 47.2 (H) 36.0 - [facility] 45.0 [facility] LABORATORY RDWCV 14.6 (H) 11.4 - [facility] 13.8 % [facility] LABORATORY MPV 12.2 7.6 - 12.9 [facility] LABORATORY nRBC % Auto 0.0 % [facility] nRBC Abs Auto 0.000 0.000 - [facility] 0.000 [facility] x10(3)/[facility] LABORATORY Specimen Anatomical Collection Method Collection Time Receive d Time (Source) Location / / Volume Laterality Blood specimen 12/01/2019 12:51 0 1:05 (specimen) PM EDT PM EDT Resulting Agency Comment Spec In Lab Riki Stevens MD HEMATOLOGY ORDERABLES Performing Organization Address City/[facility]/ZIP Code Phon e Number [address] (ABNORMAL) Coox2 (12/01/2019 11:42 AM EDT) Analysis Performed At Patho logist Time Signature pO2 Coox 30 mmHg [facility] Hgb Blood Gas 11.6 (L) 13.7 - [facility] 16.5 gm/dL [facility] O2HB Coox 60.8 % [facility] COHB Coox 0.6 % [facility] Comment: Nonsmokers: 0.5-1.5% COHB Smokers: Variable, but usually less than 10% Toxic: 20-30% COHB Lethal: Greater than 60% COHB METHB Coox 0.6 <=1.5 % [facility] LABORATORY Source Coox Mixed Venous [facility] Specimen Anatomical Collection Method Collection Time Receive d Time (Source) Location / / Volume Laterality Blood specimen 12/01/2019 11:42 0 (specimen) AM EDT 11:42 AM EDT Gretchen Yoon MD CHEMISTRY ORDERABLES Performing Organization Address City/State/ZIP [place] [address] Sedimentation rate (12/01/2019 3:55 AM EDT) P athologist Signature Sed Rate 25 3 - 46 [facility] mm/hr [facility] Comment: Effective June 11, 2019 [...] MD HEMATOLOGY ORDERABLES Performing Organization Address City/[facility]/ZIP [place] [address] (ABNORMAL) CRP, acute inflammation (12/01/2019 3:55 AM EDT) P athologist Signature CRP 92.5 (H) <=4.9 mg/L [facility] Specimen Anatomical Collection Method Collection Time Receive d Time (Source) Location / / Volume Laterality Blood specimen Venous Draw / 12/01/2019 3:55 AM 2019 4:06 (specimen) Unknown EDT AM EDT Resulting Agency Comment Spec In Lab Rossy Winn MD CHEMISTRY ORDERABLES Performing Organization Address City/[facility]/ZIP [place] [address] ABORH Recheck Status (12/01/2019 3:55 AM EDT) [facility] Method Time Signature ABORH Recheck Order Placed [facility] LABORATORY ABORH Type Complete [facility] LABORATORY Specimen Anatomical Collection Method Collection Time Receive d Time (Source) Location / / Volume Laterality Blood specimen 12/01/2019 3:55 AM 020 4:15 (specimen) EDT AM EDT Resulting Agency Comment Spec In Lab Lewis Gee MD BLOOD BANK ORDERABLES Performing Organization Address City/[facility]/ZIP [place] [address] Antibody screen (12/01/2019 3:55 AM EDT) [facility] Method Time Signature Ab Screen Negative [facility] LABORATORY Expires at 12/04/2019 [facility] [id number] on: [facility] Specimen Anatomical Collection Method Collection Time Receive d Time (Source) Location / / Volume Laterality Blood specimen 12/01/2019 3:55 AM 020 4:15 (specimen) EDT AM EDT Resulting Agency Comment Spec In Lab Lewis Gee MD BLOOD BANK ORDERABLES Performing Organization Address City/State/ZIP [place] [address] ABO/Rh Typing (12/01/2019 3:55 AM EDT) athologist Signature ABORh Type AB Pos [facility] Specimen Anatomical Collection Method Collection Time Receive d Time (Source) Location / / Volume Laterality Blood specimen 12/01/2019 3:55 AM 020 4:15 (specimen) EDT AM EDT Resulting Agency Comment Spec In Lab Lewis Gee MD BLOOD BANK ORDERABLES Performing Organization Address City/[facility]/ZIP [place] [address] (ABNORMAL) Troponin (12/01/2019 3:55 AM EDT) athologist Signature Troponin-T 4.35 (H) 0.00 - [facility] 0.00 ng/mL [facility] Comment: result rechecked-slw The 99th percentile for Troponin T is le ss than 0.01 ng/mL, any detectable cTnT concentration using this assay should be considered elevated. According to the third universal definit ion of myocardial infarction the following criteria with a clinical prese ntation consistent with acute myocardial ischemia meets the diagnosis for a myocardial infarction (PA). Detection of a rise and/or fall of [...] additional sample may be indicated. Reference: Third North English Definition of Myocardial Infarction. Journal of the [place] College of Cardiology 2012;60:1581-98 Specimen Anatomical Collection Method Collection Time Receive d Time (Source) Location / / Volume Laterality Blood specimen 12/01/2019 3:55 AM 020 4:00 (specimen) EDT AM EDT Resulting Agency Comment Spec In Lab Gretchen Yoon MD CHEMISTRY ORDERABLES Performing Organization Address City/[facility]/ZIP Code Phon e Number [address] Magnesium (12/01/2019 3:55 AM EDT) P athologist Signature Magnesium 0.96 0.69 - 1.07 [facility] mmol/L [facility] LAB[facility]ORY Specimen Anatomical Collection Method Collection Time Receive d Time (Source) Location / / Volume Laterality Blood specimen 12/01/2019 3:55 AM 020 4:00 (specimen) EDT AM EDT Resulting Agency Comment Spec In Lab Gretchen Yoon MD CHEMISTRY ORDERABLES Performing Organization Address City/State/ZIP [place] [address] (ABNORMAL) BMP w/fasting Glucose (12/01/2019 3:55 AM EDT) P athologist Signature Glucose 148 (H) 65 - 99 [facility] Fasting mg/dL [facility] Comment: ?Fasting* Glucose Interpretive C [...] of Diabetes Mellitus, Position Statement from the [place] Diabetes Association. ??Diabete s Care, Volume 33, Supplement 1, Jul 2009 BUN 11 10 - 20 mg/dL [facility] LABORATORY Creatinine 0.96 0.80 - 1.50 mg/dL [facility]OR[facility]ORY Sodium 132 (L) 135 - 145 mmol/L [facility] Potassium 4.0 3.5 - 5.0 mmol/L [facility] Comment: Please note: ??Patients with WBC >100,00 0 may have falsely elevated Potassium levels. ??For accurate Potassium quantif ication in these patients send serum separator tube (gold top) for subsequent determinations. ??Contact the Clinical Chemistry Laboratory if there are any qu estions. Chloride 105 98 - 107 mmol/L [facility] CO2 17 (L) 22 - 31 mmol/L [facility] Anion Gap 10 5 - 15 mmol/L [facility] Calcium 7.6 (L) 8.5 - 10.5 mg/dL [facility] Estimated GFR 78 >=60 mL/min/1.73 m?? [facility] Comment: The eGFR was calculated using the CKD-EP I equation. As with all creatinine based estimates of kidney function, eGFR values calculated with the CKD-EPI equation are not accurate in patients wi th acute kidney failure, extremes of body mass or the acutely ill. [email or web address] eGFR 91 >=60 mL/min/1.73 m?? [facility] Comment: The eGFR was calculated using the CKD-EP I equation. As with all creatinine based estimates of kidney function, eGFR values calculated with the CKD-EPI equation are not accurate in patients wi th acute kidney failure, extremes of body mass or the acutely ill. [email or web address] Specimen Anatomical Collection Method Collection Time Receive d Time (Source) Location / / Volume Laterality Blood specimen 12/01/2019 3:55 AM 020 4:00 (specimen) EDT AM EDT Resulting Agency Comment Spec In Lab Gretchen Yoon MD CHEMISTRY ORDERABLES Performing Organization Address City/State/ZIP Code Phon [place] [address] (ABNORMAL) Hemogram (12/01/2019 3:55 AM EDT) Analysis [facility] Time Signature WBC 11.0 (H) 4.0 - 9.5 [facility] x10(3)/[facility] LABORATORY RBC 3.46 (L) 4.58 - [facility] 5.54 [facility] x10(6)/[facility] LABORATORY Hemoglobin 10.2 (L) 13.7 - [facility] 16.5 gm/dL [facility] Hematocrit 31.2 (L) 40.5 - [facility] 48.5 % [facility] MCV 90.2 82.9 - [facility] 93[facility]1 [facility] LABORATORY MCH 29.5 27.5 - [facility] 32.1 pg [facility] MCHC 32.7 32.0 - [facility] 35.7 gm/dL [facility] Platelets 98 (L) 145 - 357 [facility] x10(3)/[facility] LABORATORY RDWSD 47.9 (H) 36.0 - [facility] 45.0 [facility] LABORATORY RDWCV 14.6 (H) 11.4 - [facility] 13.8 % [facility] LABORATORY MPV 12.3 7.6 - 12.9 [facility] LABORATORY nRBC % Auto 0.0 % [facility]ORATORY nRBC Abs Auto 0.000 0.000 - [facility] 0.000 [facility] x10(3)/[facility] LABORATORY Specimen Anatomical Collection Method Collection Time Receive d Time (Source) Location / / Volume Laterality Blood specimen 12/01/2019 3:55 AM 020 4:00 (specimen) EDT AM EDT Resulting Agency Comment Spec In Lab Gretchen Yoon MD HEMATOLOGY ORDERABLES Performing Organization Address City/State/[place] [address] (ABNORMAL) BLOOD GAS 2 ARTERIAL (11/30/2019 10:39 PM EDT) Analysis Performed At [facility] Time Signature pH Art 7.45 7.35 - [facility] 7.45 [facility] LABORATORY pCO2 Art 23 (L) 35 - 45 [facility] LABORATORY pO2 Art 76 (L) 85 - 104 [facility] LABORATORY HCO3 Art 15.3 (L) 20.0 - [facility] 26.0 [facility] mmol/L [facility] LABORATORY BE Art -8.7 (L) -3.0 - 3.0 [facility] mmol/L [facility] LABORATORY Hgb Blood Gas 11.7 (L) 13.7 - [facility] 16.5 gm/dL [facility] O2HB Art 94.2 94.0 - [facility] 97.0 % [facility] LABORATORY COHB Art 0.5 % [facility]ORY Comment: Nonsmokers: 0.5-1.5% COHB Smokers: Variable, but usually less than 10% Toxic: 20-30% COHB Lethal: Greater than 60% COHB METHB Art 0.6 <=1.5 % [facility] LABORAT[facility] Na Whole Blood 133 (L) 135 - 145 mmol/L [facility] LABOR[facility] K Whole Blood 3.8 3.5 - 5.0 mmol/L [facility] Comment: Please note: Patients with WBC >100,000 may have falsely elevated Potassium levels. Contact the Clinical Chemistry L aboratory if there are any questions. ICa Whole Blood 1.10 (L) 1.15 - 1.33 mmol/L [facility] Comment: Note: ??Total bilirubin higher than 20 m g/dL may lead to falsely low ionized calcium. CL Whole Blood 109 (H) 98 - 107 mmol/L [facility] Gluc Whole Bld 120 65 - 199 mg/dL [facility] Comment: Diabetes: >=200 mg/dL plus symp toms. Lactate WB 0.8 0.5 - 2.2 mmol/L [facility] FIO2 Art 100 % [facility] PF Ratio Art 76 [facility] LABORATORY Specimen Anatomical Collection Method Collection Time Receive d Time (Source) Location / / Volume Laterality Blood specimen 11/30/2019 10:39 0 (specimen) PM EDT 10:39 PM EDT Gretchen Yoon MD CHEMISTRY ORDERABLES Performing Organization Address City/[facility]/ZIP [place] [address] EKG 12 Lead (11/30/2019 [...] (Bezet) Calculated P 12 degrees [facility] [place] Calculated R 19 degrees [facility] [place] Calculated T -47 degrees [facility] [place] INTERPRETATION Sinus rhythm with Premature supraventricular complexes [...] MD ECG ORDERABLES Performing Organization Address City/[facility]/ZIP Code Phon e Number MUSE SYSTEM (ABNORMAL) Urinalysis Microscopic Exam (11/30/2019 8:40 PM EDT) P athologist Signature RBC UA 27 (H) 0 - 3 /HPF [facility] WBC UA 4 (H) 0 - 3 /HPF [facility] Hyaline Cast 3 (H) 0 - 2 /LPF [facility] LABORATORY Specimen (Source) Anatomical Collection Method Collection Time Re ceived Time Location / / Volume Laterality Urine specimen 11/30/2019 8:40 11/30/2019 obtained via PM EDT 10:51 PM EDT indwelling urinary catheter (specimen) Resulting Agency Comment Spec In Lab Rossy Winn MD URINE ORDERABLES Performing Organization Address City/[facility]/ZIP [place] [address] (ABNORMAL) Urinalysis with reflex Culture (11/30/2019 8:40 PM EDT) Patholo gist Method Time Signature Glucose UA Negative Negative [facility] Protein UA Negative Negative [facility] mg/dL [facility] Bilirubin UA Negative Negative [facility] mg/dL [facility] Comment: Clinical correlation required for positi ve Urine Bilirubin results as false positive may occur with some drugs and d rug related products. If a false positive is suspected a serum total bili morales should be considered if clinically indicated. Urobilinogen UA Normal Normal mg/dL [facility] pH UA 5.5 5.0 - 8.0 [facility] Blood UA Moderate (A) Negative mg/dL [facility] Ketones UA 40 (A) Negative mg/dL [facility] Nitrite UA Negative Negative [facility] LABORATORY Leukocytes UA Trace (A) Negative [facility] LABORATORY Appearance UA Clear Clear [facility] LABORATORY Spec [place] UA 1.026 1.006 - 1.030 [facility] LABOR[facility]ORY Color UA Yellow Yellow [facility] Culture Reflexed No [facility]OR[facility]ORY Specimen (Source) Anatomical Collection Method Collection Time Re ceived Time Location / / Volume Laterality Urine specimen 11/30/2019 8:40 11/30/2019 obtained via PM EDT 10:51 PM EDT indwelling urinary catheter (specimen) Resulting Agency Comment Spec In Lab Gretchen Yoon MD URINE ORDERABLES Performing Organization Address City/State/[place] [address] (ABNORMAL) pro-Brain Natriuretic Peptide (11/30/2019 8:30 PM EDT) P athologist Signature ProBNP 2,802 (H) <=125 [facility] pg/mL [facility] Specimen Anatomical Collection Method Collection Time Receive d Time (Source) Location / / Volume Laterality Blood specimen Venous Draw / 11/30/2019 8:30 PM 2019 8:36 (specimen) Unknown EDT PM EDT Resulting Agency Comment Spec In Lab Rossy Winn MD CHEMISTRY ORDERABLES Performing Organization Address City/[facility]/ZIP [place] [address] (ABNORMAL) Troponin (11/30/2019 8:30 PM EDT) athologist Signature Troponin-T 5.04 (H) 0.00 - [place] 0.00 ng/mL [facility] Comment: The 99th percentile for Troponin T is le ss than 0.01 ng/mL, any detectable cTnT concentration using this assay should be considered elevated. According to the third universal definit ion of myocardial infarction the following criteria with a clinical prese ntation consistent with acute myocardial ischemia meets the diagnosis for a myocardial infarction (PA). Detection of a rise and/or fall of [...] additional sample may be indicated. Reference: Third [place] Definition of Myocardial Infarction. Journal of the [place] College of Cardiology 2012;60:1581-98 Specimen Anatomical Collection Method Collection Time Receive d Time (Source) Location / / Volume Laterality Blood specimen Venous Draw / 11/30/2019 8:30 PM 2019 8:36 (specimen) Unknown EDT PM EDT Resulting Agency Comment Spec In Lab Rossy Winn MD CHEMISTRY ORDERABLES Performing Organization Address City/[facility]/ZIP [place] [address] Magnesium (11/30/2019 8:30 PM EDT) athologist Signature Magnesium 0.79 0.69 - 1.07 [place] mmol/L [facility] Specimen Anatomical Collection Method Collection Time Receive d Time (Source) Location / / Volume Laterality Blood specimen 11/30/2019 8:30 PM 020 8:35 (specimen) EDT PM EDT Resulting Agency Comment Spec In Lab Gretchen Yoon MD CHEMISTRY ORDERABLES Performing Organization Address City/State/[place] [address] (ABNORMAL) Basic Metabolic Panel (non-fasting) (11/30/2019 8:30 PM EDT) athologist Signature Glucose Lvl 132 65 - 199 [facility] mg/dL [facility] Comment: Diabetes: >=200 mg/dL plus symp toms BUN 12 10 - 20 mg/dL [facility]ORY Creatinine 0.94 0.80 - 1.50 mg/dL [facility] Sodium 136 135 - 145 mmol/L [facility] Potassium 3.9 3.5 - 5.0 mmol/L [facility] Comment: Please note: ??Patients with WBC >100,00 0 may have falsely elevated Potassium levels. ??For accurate Potassium quantif ication in these patients send serum separator tube (gold top) for subsequent determinations. ??Contact the Clinical Chemistry Laboratory if there are any qu estions. Chloride 108 (H) 98 - 107 mmol/L [facility] CO2 17 (L) 22 - 31 mmol/L [facility] Anion Gap 11 5 - 15 mmol/L [facility]ORY Calcium 7.9 (L) 8.5 - 10.5 mg/dL [facility] Estimated GFR 80 >=60 mL/min/1.73 m?? [facility] Comment: The eGFR was calculated using the CKD-EP I equation. As with all creatinine based estimates of kidney function, eGFR values calculated with the CKD-EPI equation are not accurate in patients wi th acute kidney failure, extremes of body mass or the acutely ill. [email or web address] eGFR 93 >=60 mL/min/1.73 m?? [facility] Comment: The eGFR was calculated using the CKD-EP I equation. As with all creatinine based estimates of kidney function, eGFR values calculated with the CKD-EPI equation are not accurate in patients wi th acute kidney failure, extremes of body mass or the acutely ill. [email or web address] Specimen Anatomical Collection Method Collection Time Receive d Time (Source) Location / / Volume Laterality Blood specimen 11/30/2019 8:30 PM 020 8:35 (specimen) EDT PM EDT Resulting Agency Comment Spec In Lab Gretchen Yoon MD CHEMISTRY ORDERABLES Performing Organization Address City/[facility] [place] [address] Blood culture (11/30/2019 8:30 PM EDT) Patholo gist Method Time Signature Blood Culture No growth MELINA WHITTENCOCK at 5 days. [facility] Specimen Anatomical Collection Method Collection Time Receive d Time (Source) Location / / Volume Laterality Blood specimen 11/30/2019 8:30 PM 020 9:40 (specimen) EDT PM EDT Comment: L HAND Resulting Agency Comment Spec In Lab Gretchen Yoon MD MICROBIOLOGY - BLOOD ORDERAB LES Performing Organization Address City/[facility]/ZIP [place] [address] Blood culture (11/30/2019 8:30 PM EDT) Patholo gist Method Time Signature Blood Culture No growth MELINA WHITTENCOCK at 5 days. [facility] Specimen Anatomical Collection Method Collection Time Receive d Time (Source) Location / / Volume Laterality Blood specimen 11/30/2019 8:30 PM 020 9:40 (specimen) EDT PM EDT Comment: R HAND Resulting Agency Comment Spec In Lab Gretchen Yoon MD MICROBIOLOGY - BLOOD ORDERAB LES Performing Organization Address [facility] [place] [address] XR Chest One View [...] Time Signature pH Art 7.45 7.35 - [facility] 7.45 [facility] pCO2 Art 27 (L) 35 - 45 [facility] mmHg [facility] pO2 Art 68 (L) 85 - 104 [facility] LABORATORY HCO3 Art 18.2 (L) 20.0 - [facility] 26.0 [facility] mmol/[facility] LAB[facility] BE Art -5.9 (L) -3.0 - 3.0 [facility] mmol/L [facility] Hgb Blood Gas 12.4 (L) 13.7 - [facility] 16.5 gm/dL [facility] O2HB Art 93.1 (L) 94.0 - [facility] 97.0 % [facility] COHB Art 0.8 % [facility] Comment: Nonsmokers: 0.5-1.5% COHB Smokers: Variable, but usually less than 10% Toxic: 20-30% COHB Lethal: Greater than 60% COHB METHB Art 0.4 <=1.5 % [facility] Na Whole Blood 133 (L) 135 - 145 mmol/L [facility] K Whole Blood 3.6 3.5 - 5.0 mmol/L [facility] Comment: Please note: Patients with WBC >100,000 may have falsely elevated Potassium levels. Contact the Clinical Chemistry L aboratory if there are any questions. ICa Whole Blood 1.13 (L) 1.15 - 1.33 mmol/L [facility] Comment: Note: ??Total bilirubin higher than 20 m g/dL may lead to falsely low ionized calcium. CL Whole Blood 108 (H) 98 - 107 mmol/L [facility] Gluc Whole Bld 121 65 - 199 mg/dL [facility] Comment: Diabetes: >=200 mg/dL plus symp toms. Lactate WB 1.2 0.5 - 2.2 mmol/L [facility] Flow Art 5.0 LPM [facility] Specimen Anatomical Collection Method Collection Time Receive d Time (Source) Location / / Volume Laterality Blood specimen 11/30/2019 8:09 PM 020 8:09 (specimen) EDT PM EDT Gretchen Yoon MD CHEMISTRY ORDERABLES Performing Organization Address City/State/[place] [address] Angiogram [place] (11/30/2019 4:36 PM EDT) Anatomical [...] CT HEAD WO CONTRAST (GENERIC), CT ANGIOGRAM [place] CLINICAL HISTORY: Headache, intracranial hemorrhage suspected F/U on known ICH - assessing for propaga tion TECHNIQUE: CT head performed without intravenous co ntrast administration. CT angiogram [place] of [place] 65 cc Omnipaque 350 administered [...] HEAD WO CONTRAST (GENERI C), CT ANGIOGRAM [place] CLINICAL HISTORY: Headache, intracranial hemorrhage suspected F/U on known ICH - assessing for propaga tion TECHNIQUE: CT head performed without intravenous co ntrast administration. CT angiogram [place] 65 cc Omnipaque 350 administered [...] CT HEAD WO CONTRAST (GENERIC), CT ANGIOGRAM [place] CLINICAL HISTORY: Headache, intracranial hemorrhage suspected F/U on known ICH - assessing for propaga tion TECHNIQUE: CT head performed without intravenous co ntrast administration. CT angiogram [place] 65 cc Omnipaque 350 administered [...] HEAD WO CONTRAST (GENERI C), CT ANGIOGRAM [place] CLINICAL HISTORY: Headache, intracranial hemorrhage suspected F/U on known ICH - assessing for propaga tion TECHNIQUE: CT head performed without intravenous co ntrast administration. CT angiogram [place] 65 cc Omnipaque 350 administered [...] Electronically signed by: Angel Luis Barboza MD, [facility] ([phone]), at 11/30/2019 5:04 PM Gretchen Yoon MD [...] 453 ms MUSE SYSTEM (Bezet) Calculated P Malakoff 52 degrees MUSE SYSTEM Calculated R Malakoff 5 degrees MUSE SYSTEM Calculated T Malakoff -60 degrees MUSE SYSTEM INTERPRETATION Sinus rhythm [...] Nilo ? (Age): 1945(74y) Med Rec#: ? [id number] ?Sex: ?M ? Site Loc: ? [facility] ?Ht / Wt: ??178(cm)/64(kg) Pt. Loc: ?CCU ? BSA: ?1.8 Study Date: ?? 11/30/2019 ?Pt. Type: Inpatient Tape: ? Referring: GILMER Reading: Tello Mejia ([id number]) [employer] Operator: Friend, Lolita Diagnosis: *ST elevation (STEMI) [...] Vmax ?0.58 ? m/sec ? MV deceleration [id number] ? m sec ? MV A-wave Vmax [...] ? Mid-Inferior ?Akinetic ? Mid-Inferoseptal ?Normal ? [place]-Septal ? Normal ? [place]-Anterior ? Normal ? [place]-Lateral ?Normal ? [place]-Inferior ? Hypokinetic ? [place]-Tip ?Normal ? This report has been electronically sign ed by: _ Tello Mejia MD ? 11/30/2019 12: 45:27 Images reviewed and interpretation [facility] Cardiac Ultrasound Laboratory Procedure Note Tello Mejia MD - 11/30/2019Formatti ng of this note might be different from the original. Procedure: Transthoracic Echocardiogram Patient: RITA ACOSTA(Age): [birth year](74y) Med Rec#: [id number] Sex: M Site Loc: [facility] Ht / Wt: 178(cm)/64(kg) Pt. Loc: [facility] BSA: 1.8 Study Date: 11/30/2019 Pt. Type: Inpatie nt Tape: Referring: VANGIEJ Reading: Tello Mejia ([id number]) [employer] Operator: Eve Lolita Diagnosis: *ST elevation (STEMI) myocardial [...] MV E-wave Vmax 0.58 m/sec MV deceleration hoju355.05 msec MV A-wave Vmax 0.74 m/sec MV [...] Hypokinetic Mid-Posterolateral Hypokinetic Mid-Inferior Akinetic Mid-Inferoseptal Normal [place]-Septal Normal [place]-Anterior Normal [place]-Lateral Normal [place]-Inferior Hypokinetic [place]-Tip Normal This report has been electronically sign ed by: _ Tello Mejia MD 11/30/2019 12:45:27 Images reviewed and interpretation verif d [facility] Cardiac Ultrasound Laboratory Gretchen Yoon MD [...] Electronically signed by: Angel Luis Barboza MD, [facility] ([phone]), at 11/30/2019 12:04 PM Narrative 11/30/2019 12:04 [...] ORDERABLES Magnesium (11/30/2019 8:30 AM EDT) athologist [facility] Magnesium 0.88 0.69 - 1.07 [facility]L [facility] Specimen Anatomical Collection Method Collection Time Receive d Time (Source) Location / / Volume Laterality Blood specimen Venous Draw / 11/30/2019 8:30 AM 2019 8:37 (specimen) Unknown EDT AM EDT Resulting Agency Comment Spec In Lab Rossy Winn MD CHEMISTRY ORDERABLES Performing Organization Address City/State/ZIP [place] [address] (ABNORMAL) CK (11/30/2019 8:30 AM EDT) athologist [facility] CK, Total 1,645 (H) 0 - 200 [facility] Specimen Anatomical Collection Method Collection Time Receive d Time (Source) Location / / Volume Laterality Blood specimen 11/30/2019 8:30 AM 020 8:32 (specimen) EDT AM EDT Resulting Agency Comment Spec In Lab Gretchen Yoon MD CHEMISTRY ORDERABLES Performing Organization Address City/[facility]/ZIP [facility] [place] [address] (ABNORMAL) Troponin (11/30/2019 8:30 AM EDT) athologist [facility] Troponin-T 8.04 (H) 0.00 - MELINA OLIVIA 0.00 ng/mL [facility] Comment: result rechecked-rancho The 99th percentile for Troponin T is le ss than 0.01 ng/mL, any detectable cTnT concentration using this assay should be considered elevated. According to the third universal definit ion of myocardial infarction the following criteria with a clinical prese ntation consistent with acute myocardial ischemia meets the diagnosis for a myocardial infarction (PA). Detection of a rise and/or fall of [...] additional sample may be indicated. Reference: Third North English Definition of Myocardial Infarction. Journal of the [place] College of Cardiology 2012;60:1581-98 Specimen Anatomical Collection Method Collection Time Receive d Time (Source) Location / / Volume Laterality Blood specimen 11/30/2019 8:30 AM 020 8:32 (specimen) EDT AM EDT Resulting Agency Comment Spec In Lab Gretchen Yoon MD CHEMISTRY ORDERABLES Performing Organization Address City/State/[place] [address] EKG 12 Lead (11/30/2019 7:57 AM EDT) Component Value Ref Range Test Analysis Performed Pathologis t Method Time At Signature Ventricular rate 64 BPM MUSE SYSTEM Atrial Rate 64 BPM MUSE SYSTEM P-R Interval 132 ms MUSE SYSTEM QRS Duration 78 ms MUSE SYSTEM Q-T Interval 420 ms MUSE SYSTEM QTC Calculated 433 ms MUSE SYSTEM (Bezet) Calculated P Malakoff 28 degrees MUSE SYSTEM Calculated R Malakoff 7 degrees MUSE SYSTEM Calculated T [place]ak[place] -33 degrees MUSE SYSTEM INTERPRETATION Sinus rhythm [...] Signature Glucose 147 (H) 65 - 99 [facility] Fasting mg/dL [facility] Comment: ?Fasting* Glucose Interpretive C [...] of Diabetes Mellitus, Position Statement from the [place] Diabetes Association. ??Diabete s Care, Volume 33, Supplement 1, Jul 2009 BUN 13 10 - 20 mg/dL [facility] Creatinine 0.90 0.80 - 1.50 mg/dL [facility] Sodium 135 135 - 145 mmol/L [facility] Potassium 3.9 3.5 - 5.0 mmol/L [facility] Comment: Please note: ??Patients with WBC >100,00 0 may have falsely elevated Potassium levels. ??For accurate Potassium quantif ication in these patients send serum separator tube (gold top) for subsequent determinations. ??Contact the Clinical Chemistry Laboratory if there are any qu estions. Chloride 108 (H) 98 - 107 mmol/L [facility] CO2 16 (L) 22 - 31 mmol/L [facility] Anion Gap 11 5 - 15 mmol/L [facility] Calcium 7.5 (L) 8.5 - 10.5 mg/dL [facility] Estimated GFR 84 >=60 mL/min/1.73 m?? [facility] Comment: The eGFR was calculated using the CKD-EP I equation. As with all creatinine based estimates of kidney function, eGFR values calculated with the CKD-EPI equation are not accurate in patients wi th acute kidney failure, extremes of body mass or the acutely ill. http://Myrio/[facility] eGFR 98 >=60 mL/min/1.73 m?? [facility] Comment: The eGFR was calculated using the CKD-EP I equation. As with all creatinine based estimates of kidney function, eGFR values calculated with the CKD-EPI equation are not accurate in patients wi th acute kidney failure, extremes of body mass or the acutely ill. http://Myrio/[facility]f Specimen Anatomical Collection Method Collection Time Receive d Time (Source) Location / / Volume Laterality Blood specimen 11/30/2019 2:15 AM 020 2:29 (specimen) EDT AM EDT Resulting Agency Comment Spec In Lab Gretchen Yoon MD CHEMISTRY ORDERABLES Performing Organization Address City/State/ZIP Code Phon e Number [place] [id number] (ABNORMAL) Hemogram (11/30/2019 2:15 AM EDT) Analysis Performed At Patho logist Time Signature WBC 11.2 (H) 4.0 - 9.5 [facility] x10(3)/[facility] LABORATORY RBC 3.83 (L) 4.58 - [facility] 5.54 [facility] x10(6)/[facility] LABORATORY Hemoglobin 11.4 (L) 13.7 - [facility] 16.5 gm/dL [facility] Hematocrit 35.2 (L) 40.5 - [facility] 48.5 % [facility] MCV 91.9 82.9 - [facility] 93.1 fL [facility] MCH 29.8 27.5 - [facility] 32.1 [facility] LABORATORY MCHC 32.4 32.0 - MELINA WHITTENCOCK 35.7 gm/dL [facility] Platelets 122 (L) 145 - 357 MELINA MARSHOLIVIA x10(3)/[facility] LABORATORY RDWSD 49.8 (H) 36.0 - MELINA WHITTENCOCK 45.0 [facility] LABORATORY RDWCV 14.8 (H) 11.4 - MELINA OLIVIA 13.8 % [facility] MPV 12.1 7.6 - 12.9 MELINA MONAE [facility] LABORATORY nRBC % Auto 0.0 % [facility] nRBC Abs Auto 0.000 0.000 - MELINA MARSHOLIVIA 0.000 [facility] x10(3)/[facility] LABORATORY Specimen Anatomical Collection Method Collection Time Receive d Time (Source) Location / / Volume Laterality Blood specimen 11/30/2019 2:15 AM 020 2:29 (specimen) EDT AM EDT Resulting Agency Comment Spec In Lab Gretchen Yoon MD HEMATOLOGY ORDERABLES Performing Organization Address City/[facility]/ZIP Code Phon e Number [address] (ABNORMAL) CK (11/30/2019 2:15 AM EDT) [facility] CK, Total 1,969 (H) 0 - 200 [facility]L [facility] Specimen Anatomical Collection Method Collection Time Receive d Time (Source) Location / / Volume Laterality Blood specimen 11/30/2019 2:15 AM 020 2:29 (specimen) EDT AM EDT Resulting Agency Comment Spec In Lab Gretchen Yoon MD CHEMISTRY ORDERABLES Performing Organization Address City/State/ZIP [place] [address] (ABNORMAL) Troponin (11/30/2019 2:15 AM EDT) [facility] Troponin-T 11.73 (H) 0.00 - MELINA WHITTENCOCK 0.00 ng/mL [facility] Comment: result rechecked-slw The 99th percentile for Troponin T is le ss than 0.01 ng/mL, any detectable cTnT concentration using this assay should be considered elevated. According to the third universal definit ion of myocardial infarction the following criteria with a clinical prese ntation consistent with acute myocardial ischemia meets the diagnosis for a myocardial infarction ([place]). Detection of a rise and/or fall of [...] additional sample may be indicated. Reference: Third North English Definition of Myocardial Infarction. Journal of the [place] College of Cardiology 2012;60:1581-98 result rechecked- The 99th percentile for Troponin T is le ss than 0.01 ng/mL, any detectable cTnT concentration using this assay should be considered elevated. According to the third universal definit ion of myocardial infarction the following criteria with a clinical prese ntation consistent with acute myocardial ischemia meets the diagnosis for a myocardial infarction (PA). Detection of a rise and/or fall of [...] additional sample may be indicated. Reference: Third [place] English Definition of Myocardial Infarction. Journal of the [place] College of Cardiology 2012;60:1581-98 Corrected from 11.73 ng/ml [HI] on 11/29 3:11:51 EDT by Debi Hawley Specimen Anatomical Collection Method Collection Time Receive d Time (Source) Location / / Volume Laterality Blood specimen 11/30/2019 2:15 AM 020 2:29 (specimen) EDT AM EDT Resulting Agency Comment Spec In Lab Gretchen Yoon MD CHEMISTRY ORDERABLES Performing Organization Address City/[facility]/ZIP Code Phon e Number [address] LDL Cholesterol, Direct (11/30/2019 2:15 AM EDT) P athologist Signature LDL Chol 156 mg/dL [facility] LABORATORY Comment: Lowest Risk: <100 mg/dL Lower Risk: 100-129 mg/dL Borderline High Risk: 130-159 mg/dL High Risk: 160-189 mg/dL Very High Risk: >bv=730 mg/dL Specimen Anatomical Collection Method Collection Time Receive d Time (Source) Location / / Volume Laterality Blood specimen 11/30/2019 2:15 AM 020 2:29 (specimen) EDT AM EDT Resulting Agency Comment Spec In Lab Gretchen Yoon MD CHEMISTRY ORDERABLES Performing Organization Address City/[facility]/ZIP Code Phon e Number [address] (ABNORMAL) Hemoglobin A1c (11/30/2019 2:15 AM EDT) Analysis Performed At Patho logist Time Signature Hemoglobin A1C 6.3 (H) 4.3 - 5.6 [facility] Comment: Reference Range: 4.3 [...] Mellitus, Diabetes Care 2013; 36: Suppl. 1, K65-47 Est Avg Gluc See note mg/dL [facility] Comment: Estimated Average Glucose [...] with hemoglobinopathies. Additional resources are available on [facility] ADA website. Kiko CARBAJAL, Jenn J, Silas R, et al. ??Tr anslating the A1C assay into estimated average glucose values. ??Diabetes Care 2008:31(8):0429-6716. Specimen Anatomical Collection Method Collection Time Receive d Time (Source) Location / / Volume Laterality Blood specimen 11/30/2019 2:15 AM 020 2:29 (specimen) EDT AM EDT Resulting Agency Comment Spec In Lab Gretchen Yoon MD CHEMISTRY ORDERABLES Performing Organization Address City/State/[place] [address] Lipid Panel (Reflex Direct LDL) (11/30/2019 2:15 AM EDT) athologist Signature Chol, Total 195 mg/dL [facility] Comment: Lower Risk: <200 mg/dL Average Risk: 200-239 mg/dL Higher Risk: >rl=706 mg/dL Triglycerides 93 mg/dL [facility] Comment: Average Risk/Lower Risk: <150 mg/dL Borderline High Risk: 150-199 mg/dL High Risk: 200-499 mg/dL Very High Risk: >gw=034 mg/dL HDL 32 mg/dL [facility] Comment: Males: ?? Higher Risk: <40 mg/dL Females: ?? HIgher Risk: <50 mg/dL LDL Cholesterol 144 mg/dL [facility] Comment: Lowest Risk: <100 mg/dL Lower Risk: 100-129 mg/dL Borderline High Risk: 130-159 mg/dL High Risk: 160-189 mg/dL Very High Risk: >tf=563 mg/dL Chol/HDL Ratio 6.1 ratio [facility] Lipid Interpretation See Note [facility] Comment: Lipid management should be guided by a p atient? s ASCVD risk, goals and preferences. ACC/AHA Guidelines recommend high intens ity statin if clinical ASCVD or LDL greater than or equal to 190 mg/dL. http://[employer].eCareDiary/BCW-HIW-Vpfvdbenf Adults aged 40-75 with LDL 70-189 mg/dL should have their 10 year ASCVD risk estimated with the ACC/AHA ASCVD risk es timator http://tools.acc.org/PQYPN-Ouuy-Kbogepqj r/ Statin should be discussed if risk [...] Organization Address City/State/[place] [address] (ABNORMAL) CK (11/29/2019 6:35 PM EDT) athologist Signature CK, Total 2,780 (H) 0 - 200 [facility] unit/L [facility] Specimen Anatomical Collection Method Collection Time Receive d Time (Source) Location / / Volume Laterality Blood specimen 11/29/2019 6:35 PM 020 6:53 (specimen) EDT PM EDT Resulting Agency Comment Spec In Lab Gretchen Yoon MD CHEMISTRY ORDERABLES Performing Organization Address City/State/[place] [address] (ABNORMAL) Troponin (11/29/2019 6:35 PM EDT) athologist Signature Troponin-T 17.60 (H) 0.00 - [facility] 0.00 ng/mL [facility] Comment: result rechecked-az The 99th percentile for Troponin T is le ss than 0.01 ng/mL, any detectable cTnT concentration using this assay should be considered elevated. According to the third universal definit ion of myocardial infarction the following criteria with a clinical prese ntation consistent with acute myocardial ischemia meets the diagnosis for a myocardial infarction ([place]). Detection of a rise and/or fall of [...] additional sample may be indicated. Reference: Third North English Definition of Myocardial Infarction. Journal of the [place] College of Cardiology 2012;60:1581-98 Specimen Anatomical Collection Method Collection Time Receive d Time (Source) Location / / Volume Laterality Blood specimen 11/29/2019 6:35 PM 020 6:53 (specimen) EDT PM EDT Resulting Agency Comment Spec In Lab Gretchen Yoon MD CHEMISTRY ORDERABLES Performing Organization Address City/State/[place] [address] EKG 12 Lead (11/29/2019 3:58 PM EDT) [facility] gist Method Time Signature Ventricular rate 73 BPM MUSE SYSTEM Atrial Rate 73 BPM MUSE SYSTEM P-R Interval 152 ms MUSE SYSTEM QRS Duration 84 ms MUSE SYSTEM Q-T Interval 404 ms MUSE SYSTEM QTC Calculated 445 ms MUSE SYSTEM (Bezet) Calculated P Malakoff 50 degrees MUSE SYSTEM Calculated R Malakoff -4 degrees MUSE SYSTEM Calculated T Malakoff 19 degrees MUSE SYSTEM INTERPRETATION Sinus rhythm [...] CLINICAL HISTORY: stemi (as entered by o [facility] provider in the order requisition) TECHNIQUE: [...] lung apex is excluded from the imaged [id number]. IMPRESSION: 1. ??New right internal jugular pulmonar [...] lung apex is excluded from the imaged [id number]. Procedure Note Estefani Harris MD - 11/29/2019Formattin [...] lung apex is excluded from the imaged [id number]. IMPRESSION 1. New right internal jugular pulmonary [...] (ABNORMAL) Differential, Automated (11/29/2019 2:32 PM EDT) [facility] Method Time Signature Neutrophils % 83.8 % [facility] LABORATORY Neutr Abs (ANC) 12.12 (H) 1.70 - [facility] 6.10 [facility] x10(3)/[facility] LABORATORY Lymphocytes % 9.1 % [facility]OR[facility]ORY Lymphocytes Abs 1.3 0.9 - 3.2 [facility] x10(3)/[facility] LABORATORY Monocytes % 6.2 % [facility]OR[facility]ORY Monocyte Abs 0.9 0.3 - 0.9 [facility] x10(3)/[facility] LABORATORY Eosinophils % 0.0 % [facility]OR[facility]ORY Eosinophils Abs 0.0 0.0 - 0.4 [facility] x10(3)/[facility] LABORATORY Basophils % 0.3 % [facility]ORY Basophils Abs 0.0 0.0 - 0.1 [facility] x10(3)/[facility] LABORATORY Immature Gran % 0.60 % [facility] Comment: Immature granulocytes(IG's)percentage an d absolute count will include metamyelocytes, myelocytes, and promyelo cytes. Blood smears from CBCs yielding IG's will be scanned manually for concor dance. If this scan disagrees with the automated IG or if promyelocytes are not ed, a manual differential will be performed. Pita Gran Abs 0.08 (H) 0.00 - 0.04 x10(3)/[facility] LABORATORY Specimen Anatomical Collection Method Collection Time Receive d Time (Source) Location / / Volume Laterality Blood specimen 11/29/2019 2:32 PM 020 2:55 (specimen) EDT PM EDT Resulting Agency Comment Spec In Lab Darrell Glasgow MD HEMATOLOGY ORDERABLES Performing Organization Address City/State/[place] [address] (ABNORMAL) Hemogram (11/29/2019 2:32 PM EDT) Analysis Performed At Patho logist Time Signature WBC 14.5 (H) 4.0 - 9.5 [facility] x10(3)/[facility] LABORATORY RBC 4.53 (L) 4.58 [facility] 5.54 [facility] x10(6)/[facility] LABORATORY Hemoglobin 13.1 (L) 13.7 - [facility] 16.5 gm/dL [facility] LABORATORY Hematocrit 40.8 40.5 - [facility] 48.5 % [facility] LABORATORY MCV 90.1 82.9 - [facility] 93.1 [facility] LABORATORY MCH 28.9 27.5 - [facility] 32.1 pg [facility] LABORATORY MCHC 32.1 32.0 - [facility] 35.7 gm/dL [facility] LABORATORY Platelets 184 145 - 357 [facility] x10(3)/[facility] LABORATORY RDWSD 47.8 (H) 36.0 - [facility] OLIVIA 45.0 [facility] LABORATORY RDWCV 14.5 (H) 11.4 - [facility] OLIVIA 13.8 % [facility] LABORATORY MPV 11.9 7.6 - 12.9 [facility] nRBC % Auto 0.0 % [facility] LABORATORY nRBC Abs Auto 0.000 0.000 - [place] 0.000 [facility] x10(3)/[facility] LABORATORY Specimen Anatomical Collection Method Collection Time Receive d Time (Source) Location / / Volume Laterality Blood specimen 11/29/2019 2:32 PM 020 2:55 (specimen) EDT PM EDT Resulting Agency Comment Spec In Lab Darrell Glasgow MD HEMATOLOGY ORDERABLES Performing Organization Address City/State/ZIP Code Phon e Number [address] (ABNORMAL) CK (11/29/2019 2:32 PM EDT) athologist Signature CK, Total 3,282 (H) 0 - 200 [facility] unit/L [facility] LABORATORY Specimen Anatomical Collection Method Collection Time Receive d Time (Source) Location / / Volume Laterality Blood specimen 11/29/2019 2:32 PM 020 2:32 (specimen) EDT PM EDT Resulting Agency Comment Spec In Lab Gretchen Yoon MD CHEMISTRY ORDERABLES Performing Organization Address City/[facility] [place] [address] (ABNORMAL) Troponin (11/29/2019 2:32 PM EDT) athologist Signature Troponin-T 20.33 (H) 0.00 - [place] 0.00 ng/mL [facility] LABORATORY Comment: The 99th percentile for Troponin T is le ss than 0.01 ng/mL, any detectable cTnT concentration using this assay should be considered elevated. According to the third universal definit ion of myocardial infarction the following criteria with a clinical prese ntation consistent with acute myocardial ischemia meets the diagnosis for a myocardial infarction (PA). Detection of a rise and/or fall of [...] additional sample may be indicated. Reference: Third North English Definition of Myocardial Infarction. Journal of the [place] [employer]iology 2012;60:1581-98 Specimen Anatomical Collection Method Collection Time Receive d Time (Source) Location / / Volume Laterality Blood specimen 11/29/2019 2:32 PM 020 2:32 (specimen) EDT PM EDT Resulting Agency Comment Spec In Lab Gretchen Yoon MD CHEMISTRY ORDERABLES Performing Organization Address [facility] [place] [address] (ABNORMAL) APTT (11/29/2019 2:32 PM EDT) P athologist Signature PTT 114 25 - 37 [facility] (Critical) [facility] LABORATORY Comment: Critical Result called by [...] MD HEMATOLOGY ORDERABLES Performing Organization Address [facility] [place] [address] (ABNORMAL) Prothrombin Time (11/29/2019 2:32 PM EDT) P athologist Signature PT 13.5 (H) 9.4 - 12.5 [facility] LABORATORY INR 1.2 [facility] LABORATORY Comment: An INR <2.0 [...] Organization Address City/State/ZIP [place] [address] (ABNORMAL) Hepatic Function Panel (11/29/2019 2:32 PM EDT) P athologist Signature Total Protein 6.3 6.1 - 8.0 [facility] gm/dL [facility] LABORATORY Albumin 3.6 3.2 - 5.2 [facility] gm/dL [facility] LABORATORY AST 257 (H) 0 - 39 [facility]L [facility] LABORATORY ALT 50 0 - 55 [facility]L [facility] LABORATORY Alk Phos 84 40 - 130 [facility]L [facility] LABORATORY Total 0.3 0.2 - 1.3 [facility] Bilirubin mg/dL [facility] LABORATORY Bili, Direct 0.1 0.0 - 0.3 [facility] [place] mg/dL [facility] LABORATORY Specimen Anatomical Collection Method Collection Time Receive d Time (Source) Location / / Volume Laterality Blood specimen 11/29/2019 2:32 PM 020 2:32 (specimen) EDT PM EDT Resulting Agency Comment Spec In Lab Gretchen Yoon MD CHEMISTRY ORDERABLES Performing Organization Address City/[facility]/ZIP [place] [address] (ABNORMAL) pro-Brain Natriuretic Peptide (11/29/2019 2:32 PM EDT) P athologist Signature ProBNP 272 (H) <=125 pg/mL [facility] LABORATORY Specimen Anatomical Collection Method Collection Time Receive d Time (Source) Location / / Volume Laterality Blood specimen 11/29/2019 2:32 PM 020 2:32 (specimen) EDT PM EDT Resulting Agency Comment Spec In Lab Gretchen Yoon MD CHEMISTRY ORDERABLES Performing Organization Address City/[facility]/ZIP Code Phon e Number [place] Magnesium (11/29/2019 2:32 PM EDT) athologist Signature Magnesium 0.76 0.69 - 1.07 [facility] mmol/L [facility] LABORATORY Specimen Anatomical Collection Method Collection Time Receive d Time (Source) Location / / Volume Laterality Blood specimen 11/29/2019 2:32 PM 020 2:32 (specimen) EDT PM EDT Resulting Agency Comment Spec In Lab Gretchen Yoon MD CHEMISTRY ORDERABLES Performing Organization Address City/State/ZIP Code Phon e Number [address] (ABNORMAL) Basic Metabolic Panel (non-fasting) (11/29/2019 2:32 PM EDT) athologist Signature Glucose Lvl 149 65 - 199 [facility] mg/dL [facility] LABORATORY Comment: Diabetes: >=200 mg/dL plus symp toms BUN 16 10 - 20 mg/dL [facility] LABORATORY Creatinine 0.94 0.80 - 1.50 mg/dL [facility] LABORATORY Sodium 135 135 - 145 mmol/L [facility] LABORATORY Potassium 4.5 3.5 - 5.0 mmol/L [facility] LABORATORY Comment: Please note: ??Patients with WBC >100,00 0 may have falsely elevated Potassium levels. ??For accurate Potassium quantif ication in these patients send serum separator tube (gold top) for subsequent determinations. ??Contact the Clinical Chemistry Laboratory if there are any qu estions. Chloride 105 98 - 107 mmol/L [facility] LABORATORY CO2 15 (L) 22 - 31 mmol/L [facility] LABORATORY Anion Gap 15 5 - 15 mmol/L [facility] LABORATORY Calcium 8.0 (L) 8.5 - 10.5 mg/dL [facility] LABORATORY Estimated GFR 80 >=60 mL/min/1.73 m?? [facility] LABORATORY Comment: The eGFR was calculated using the CKD-EP I equation. As with all creatinine based estimates of kidney function, eGFR values calculated with the CKD-EPI equation are not accurate in patients wi th acute kidney failure, extremes of body mass or the acutely ill. [email or web address]/[facility] eGFR 93 >=60 mL/min/1.73 m?? [facility] LABORATORY Comment: The eGFR was calculated using the CKD-EP I equation. As with all creatinine based estimates of kidney function, eGFR values calculated with the CKD-EPI equation are not accurate in patients wi th acute kidney failure, extremes of body mass or the acutely ill. [email or web address]/[facility] Specimen Anatomical Collection Method Collection Time Receive d Time (Source) Location / / Volume Laterality Blood specimen 11/29/2019 2:32 PM 020 2:32 (specimen) EDT PM EDT Resulting Agency Comment Spec In Lab Gretchen Yoon MD CHEMISTRY ORDERABLES Performing Organization Address City/[facility] [place] [address] EKG 12 Lead (11/29/2019 11:38 AM EDT) [facility] gist Method Time Signature Ventricular rate 60 BPM MUSE SYSTEM Atrial Rate 60 BPM MUSE SYSTEM P-R Interval 140 ms MUSE SYSTEM QRS Duration 86 ms MUSE SYSTEM Q-T Interval 474 ms MUSE SYSTEM QTC Calculated 474 ms MUSE SYSTEM (Bezet) Calculated P Malakoff 48 degrees MUSE SYSTEM Calculated R Malakoff 14 degrees MUSE SYSTEM Calculated T Malakoff 58 degrees MUSE SYSTEM INTERPRETATION Normal sinus [...] MD ECG ORDERABLES Performing Organization Address City/[facility] Phon e Number MUSE SYSTEM CARDIAC CATHETERIZATION (11/29/2019 11:15 AM EDT) Anatomical Region Laterality Modality Other Specimen (Source) Anatomical Location Collection Method / Collectio n Time Received Time / Laterality Volume Narrative 11/30/2019 1:09 PM EDT ?[facility] ? Cardiac Cathete rization/Intervention Report ? Patient Name: [place], Angel Luis H. ? Procedure Date: 11/29/2019 ? A #: [id number] ? Primary Physician: Shaan, Gretchen N ? Case #: [id number] ? File Name: [id number] ? Catheterization Order Number: [id number] ? [facility] ? Final Report [place], [place] ? Patient Name: ? Angel Luis [place] ? ID#: ?[id number] ? : ?1945 ? Procedure Date: ? [...] procedure was Emergent. The indication for ?the catheter builder visit is ACS less than or equal [...] dose administered prior to arrival in the catheter builder. ?Recommended anti-platelet/anti- thrombotic regimen: ?Continue aspirin 81 mg daily fo r indefinitely. ?Continue clopidogrel 75 mg marco a y for 12 months then stop. ?These recommendations are made at the time of the intervention. Patient ?and provider preferences or a c hanging clinical situation may require ?modification of this regimen. C marvult [facility] Interventional Cardiology for ?questions. [...] note might be different from the original. [facility] Cardiac Catheterization/Intervention Re port Patient Name: [place]inasAngel Luis Procedure Date: 11/29/2019 A #: [id number] Primary Physician: Gretchen Yoon Case #: [id number] File Name: [id number] Catheterization Order Number: [id number] [facility] Final Report [place], [place] Patient Name: Angel Luis [place] ID#: [id number] : 1945 Procedure Date: November 29, [...] was designated as ASA Class IV. The [facility] clinical frailty scale is 4: Vulnerable. Diagnostic Tests: Electrocardiography: EKG was assessed by ECG. EKG was Abnorm al. EKG showed ST Deviation >= 0.5 mm. Medications Prior to Procedure: Aspirin. Indications for Diagnostic Cath: The priority of the diagnostic procedur e was Emergent. The indication for the catheter builder visit is ACS less than or equal [...] priority for the procedure was Emergent. [facility] indication for the procedure was S GAETANO [...] this intervention was 10%. The final TI PA flow was 2. Distal 90% Thrombectomy and [...] this intervention was 10%. The final TI PA flow was 2. Vascular Access: Vascular Access [...] administered prior t o arrival in the catheter builder. Recommended anti-platelet/anti-thrombot ic regimen: Continue aspirin 81 mg daily for indefi nitely. Continue clopidogrel 75 mg daily for 12 months then stop. These recommendations are made at the t olyda of the intervention. Patient and provider preferences or a changing clinical situation may require modification of this regimen. Consult D [facility] Interventional Cardiology for questions. Conclusions: * Two [...] Signature POC pH 7.33 (L) 7.35 - [facility] 7.45 [facility] LABORATORY POC PCO2 33 (L) 35 - 45 [facility] mmHg [facility] LABORATORY POC PO2 56 (L) 85 - 104 [facility] LABORATORY POC Base Excess -8.0 (L) -3.0 - 3.0 [facility] K mmol/L [facility] LABORATORY POC HCO3 17.4 (L) 20.0 - [facility] 26.0 [facility] mmol/[facility] LABORATORY POC Sodium 137 135 - 145 [facility] mmol/L [facility] LABORATORY POC Potassium 3.6 3.5 - 5.0 [facility] mmol/L [facility] POC Ionized Ca 1.15 1.15 - [facility] 1.33 [facility] POC Hematocrit 37.0 (L) 40.0 - [facility] 51.0 % [facility] LABORATORY POC Calc Hgb 12.6 (L) 13.7 - [facility] 17.5 gm/dL [facility] LABORATORY Comment: The calculation of hemoglobin f rom hematocrit assumes a normal MCHC. POC Bgas Loc CC LAB [facility] LABORATORY Specimen Anatomical Collection Method Collection Time Receive d Time (Source) Location / / Volume Laterality Blood specimen 11/29/2019 9:17 AM 020 7:35 (specimen) EDT AM EDT Gretchen Yoon MD CHEMISTRY ORDERABLES Performing Organization Address City/State/[place] [address] EKG 12 Lead (11/29/2019 9:01 AM EDT) Component Value Ref Range Test Analysis Performed Pathologis t Method Time At Signature Ventricular rate 80 BPM MUSE SYSTEM Atrial Rate 79 BPM MUSE SYSTEM QRS Duration 94 ms MUSE SYSTEM Q-T Interval 436 ms MUSE SYSTEM QTC Calculated 502 ms MUSE SYSTEM (Bezet) Calculated R Malakoff 54 degrees MUSE SYSTEM Calculated T Malakoff 80 degrees MUSE SYSTEM INTERPRETATION Normal sinus rhythm MUSE SYSTEM Inferior infarct , possibly acute Prolonged QT * ACUTE PA ?? Consider right ventricular involvement in acute [...] ONCE, 1 dose, 12/06/19 at 0515, Ad talent development director over 120 Minutes magnesium sulfate 2 g [...] Bentley RN) 0-8,000 Units, Intravenous, BOLUS PER [facility] PROTOCOL, Starting 12/06/19 at 0926, Until [...] Oral, EVERY 4 HOURS PRN, Startin g [place] 11/30/19 at 2016, Until Sun12/08/19 at 1811, hypokalemia
Administer for serum potassium (mMol/L) of 3.9 - 4 See instructions for Potassium Protocol in online policies.
Routine Or potassium chloride ER (K-Dur/Klor-Con) tablet 40 mEqJump to med 40 mEq, Oral, EVERY 4 HOURS PRN, Startin g [place] 11/30/19 at 2016, Until Sun12/08/19 at 181, hypokalemia
Administer for serum potassium (mMol/L) of 3.6 - 3.8 See instructions for Potassium Protocol in online policies.
Routine documented in this encounter Care Teams Promotional Marketing Analyst Relationship Specialty Start Date End Date France Lam MD PCP - General 05/02/13 02/04/20 [address] [place] [address] documented as of this encounter
[2022-03-24 16:44] LABS: TSH (W/Ref FT4) 0.01 uIU/mL (0.36-3.74)
[2022-03-25 11:45] LABS: Thyrotropin Receptor Ab <1.10 IU/L
== END 2022-03-24 15:06 | disposition home or self-care (01) ==
LOC: NCHCN 15:05
PROVIDERS: PCP Family Medicine; Visit Provider Family Medicine
DX: E05.90 Thyrotoxicosis, unspecified without thyrotoxic crisis or storm (principal)
CPT/HCPCS: 84235; 84439; 84443

== ENCOUNTER 2022-03-30 10:55 | Outpatient (RCR) | payer SELFPAY ==
[2022-03-02 00:14] VITALS: BP 106/69; PULSE 52
[2022-03-02 13:06] VITALS: BP 126/73; PULSE 47; O2SAT 95
[2022-03-07 10:57] VITALS: BP 113/59; PULSE 58
[2022-03-09 10:58] VITALS: BP 108/67; PULSE 47; O2SAT 94
[2022-03-14 10:56] VITALS: BP 105/63; PULSE 61; O2SAT 93
[2022-03-16 10:59] VITALS: BP 106/58; PULSE 49; O2SAT 95
--- OUTSIDE RECORDS SUMMARY | 2022-03-16 11:01 | XMS_ITS | Encounter Summary ---
:1945 Author Organization [facility] Address [address] [place] [address] Care Team Providers Name Role Phone Jennifer Gomez PAPER FINAL INSPECTOR Primary Care Provider Encounter Details Date Type Department Care Team Description 02/15/2022 Lab Requisition [facility] Outr Resulting Lab, Pathology & Laboratory Provider [facility] [address], [place] [id number] Social History Tobacco Use Types Packs/Day Years Used Date Never Assessed Sex Assigned at Date Recorded Not on file documented as of this encounter Plan of Treatment Not on filedocumented as of this encounter Procedures Procedure Name Priority Date/Time Associated Diagnosis Comme nts T3 FREE Routine 02/15/2022 10:37 EDT Results for this procedure are i n the results section . documented in this encounter Results (ABNORMAL) T3 FREE (02/15/2022 10:37 EDT) Pathologist Sig nature T3, Free 9.3 (H) 2.8 - 5.3 pg/mL [facility] Specimen Blood - Venous blood (substance) Performing Organization Address City/State/ZIP Code Phon e Number [facility] [address] [place] [address] SERVICES documented in this encounter Visit Diagnoses Not on filedocumented in this encounter Care Teams Orthotics Prosthetics Assistant Relationship Specialty Start Date End Date Jennifer Gomez, PAPER FINAL INSPECTOR PCP - General 05/10/15 [facility] [address] [place], [place] [id number] documented as of this encounter
--- OUTSIDE RECORDS SUMMARY | 2022-03-16 11:01 | XMS_ITS | Encounter Summary ---
:1945 Author Organization [facility] Address [address] [place] [address] Support Name Relationship Address Phone FRANCI SALINAS Unavailable [address] [facility] [place] [address] FRANCI SALINAS Unavailable [address] [place] [address] [place] [address] Insurance Providers: All historical and current Section Date Range: From patient's date of to the date document was created.This section includes the names of all active insurance providers for the patient. Insurance Type of Plan Start of End of Group Member Insurance Policy P atient's Provider Coverage Name Policy Policy Number ID Provider's Gregg's Relationship Coverage Coverage Telephone Name to Policy Number Gregg [facility] MEDIGAP PLAN- Dec 30, PLAND [id number] [phone] SALINAS WILLIE PATIENT LIFE AND PLAN D D [phone] HN ANNUITY MEDICARE MEDICARE PART Dec 30, PART B [id number] [phone] RITAWILLIE PATIENT (WNR) (M) B 2012 [id number] 1 HN MEDICARE MEDICARE PART May 02, PART A [id number] [phone] RITA WILLIE PATIENT (WNR) (M) A 2010 [id number] 1 HN MUTUAL OF MEDIGAP Jul 02, PLANN [id number] [phone] WILLIE SALINAS PATIENT [place] INS PLAN N 2019 4 0 HN CO Selected Encounter This section includes the information on record at [facility] for the Encounter. Date/Time Encounter Type Encounter Reason Provider Source Description Apr 29, 2021 HC PRO PHONE TELEPHONE/ANCILL ICD-10-CM Z79.01 BEAN LEONE 03:15 PM CALL 11-20 MIN [place] skilled nursing (current) M use of anticoagulants with Provider Comments: Long-term current use of anticoagulant (SCT [id number]) IHE Encounter Template Text not used by VA Assessments - Encounter Diagnoses This section includes the primary and secondary diagnoses documented for the Encounter. 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 Radiology Reports and Pathology Reports are provided separately, in subsequent sections.Lab Results This section contains the Chemistry/Hematology Results that were resulted 30 days before or 30 daysafter the date of the Encounter. Date/Time Source Result Type Result - Unit Interpretation Reference Range Comment Apr 28, 2021 [place] CREATININE WITH eGFR Specimen T ype: PLASMA 09:59 [facility] PANEL Comment: For eG FR: Race unknown, if multiply result by 1.210 Tests performed on Arrayit (405) [id number] Ordering Provid er: MILTON UREÑA Report Released Date/Time: Feb 24, 2021 11:18 AM Reporting Lab: [facility] [place] [facility] [address] [facility] [address] Performing Lab: [place] [facility] [address] [facility] [address] CREATININE 1.54 H 0.5-1.5 eGFR 44 L >60 Apr 28, 2021 09:59 AM [place] CBC NO DIFF Specimen Type: BLOOD [facility] No comment enter ed. Ordering Provid er: MILTON UREÑA Report Released Date/Time: Feb 24, 2021 11:18 AM Reporting Lab: [facility] [facility] [address] [facility] [address] Performing Lab: [place] [facility] [address] [facility] [address] WBC 5.8 4.5-11.0 RBC 4.61 4.23-5.66 HGB 13.9 12.8-17 HEMATOCRIT 43.6 39.2-50.4 MCV 94.6 82-99 MCH 30.2 26.2-32.6 MCHC 31.9 30.8-35.1 PLT 141 140-360 MPV 12.1 9.2-12.4 RDW 15.0 12.0-16.0 Advance Directives: All historical and current Section Date Range: From patient's date of to the date document was created. This section includes ALL of a patient's completed or amended VA Advance and Rescinded Directives. The entries below indicate that a directive exists for the patient, but an actual copy is not included with this document. The data comes from all [place] facilities. Date Advance Directives Provider Source Jan 15, 2019 ADVANCE DIRECTIVE DISCUSSION STEPHANIE HERNANDEZ [facility] Encounter Notes: All associated encounter notes This section contains the clinical notes associated to the Encounter. 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 ANGEL LUIS SALINAS [address] [place] [address] Purpose of visit: Follow-up anticoagulation clin ic visit Time spent with patient during this visit: 15 mi nutes Subjective/Objective information: Active Outpatient Medications (excluding Supplie s): Active Outpatient Medications Status 1) APIXABAN 5MG TAB TAKE ONE TABLET BY MOUTH THUY RY ACTIVE YES TWELVE HOURS TO HELP PREVENT BLOOD CLOTS (ANTICOAGULATION) 2) FUROSEMIDE 20MG TAB TAKE ONE TABLET BY MOUTH EVERY ACTIVE YES OTHER DAY TO REMOVE FLUID/CONTROL BLOOD PRESSUR E 3) LISINOPRIL 5MG TAB TAKE ONE TABLET BY MOUTH E VERY DAY ACTIVE YES TO CONTROL BLOOD PRESSURE 4) METOPROLOL SUCCINATE 25MG SA TAB TAKE ONE TAB LET BY ACTIVE (S)YES MOUTH EVERY DAY FOR BLOOD PRESSURE/HEART 5) NITROGLYCERIN 0.4MG SL TAB TAKE ONE TABLET UN ARON THE HOLD TONGUE EVERY 5 MINUTES NEEDED FOR CHEST PAIN (ANGINA) MAY REPEAT FOR THREE DOSES (IF NO RELIEF,SEEK MEDICAL ATTENTION PROMPTLY) Active Non-VA Medications Status 1) Non-VA ASPIRIN 81MG EC TAB 81MG BY MOUTH EVER Y DAY ACTIVE YES 2) Non-VA CHOLECALCIF 25MCG (D3-1,000UNIT) TAB 1 000UNIT ACTIVE YES MOUTH EVERY OTHER DAY 7 Total Medications [ X ] Medication reconciliation completed, any d ifferences are listed below: Factors affecting anticoagulation: Medication change none Alcohol change none Acute illness none Medication compliance denies missing doses Bleeding/thromboembolic complications: Bruising denies Gingival bleeding denies Nosebleeds denies Hematuria denies Blood in stools denies Signs of CVA/TIA denies LE swelling/pain denies Shortness of breath denies Other side effects: denies Falls/injuries denies Tests/Procedures none Other issues: Indication for anticoagulation: Atrial fibrillation (s/p-PCI @ [facility], 10/2019) 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 Lott Lab Results: (CrCl calculation: Cockcroft-Gault and actual body weight) Date Hct Hgb Plt Creat Weight Calc CrCl AST ALT 03/02/20 45.5 14.3 128 1.36 65kg 44ml/min 07/13/19 47.9 14.7 146 1.35 65kg 44ml/min 12/13/20 47.3 15.1 150 1.60 70kg 38ml/min 17 02/22/21 46.7 14.9 159 1.37 70kg 46ml/min 17 16 04/28/21 43.6 13.9 141 1.54 70KG Assessment: anticoagulated with apixaban w/o ble eding or thrombotic complication. apixaban dosed appropriately for c urrent age, weight. hgb/hct stable Plan: DOAC Regimen: continue apixaban 5mg every 12 lenora rs explained occ process for obtaining med renewals - [facility] to [facility]s provider Future follow-up: discharge from antico clinic (Dr. Morelos to follow occ) at pts request faxed lab results to occ provider [x ] TC to patient/spouse/caregiver who was able to verbalize understanding of above instructions. [ ] Voice mail left for patient with instruction s [ ] Written instructions mailed to patient [ ] Rx ordered [ ] Rx/Lab orders faxed to: RICHIE PharmD Pharmacotherapy Rem V11: PHARMACIST INTERVENTIONS: ANTICOAGULATION THERAPY DIRECT ORAL ANTICOAGULANT (DOAC) MANAGEMENT Medication monitoring, no dosage change require d, continue to monitor and assess /osiris/ ROSA MARIA LEONE Pharmacist Signed: 04/29/2021 15:58
--- OUTSIDE RECORDS SUMMARY | 2022-03-16 11:01 | XMS_ITS | Clinical Summary ---
:1945 Author Organization [facility] Address [address] [place] [address] Care Team Providers Name Role Phone Jennifer Gomez Bunny GTA Primary Care Provider Encounters Date Type Specialty Care Team Description 02/15/2022 Lab Requisition Clinical Laboratory Outr Resulting Lab , Provider 01/25/2022 Lab Requisition Clinical Laboratory Outr Resulting Lab , Provider from Last 3 Months Social History Tobacco Use Types Packs/Day Years Used Date Never Assessed Sex Assigned at Date Recorded Not on file Plan of Treatment Health Maintenance Due Date Last Done Comments Hepatitis C Screen 1945 COVID-19 Vaccine (1) 1951 Fall Risk Screening 2011 Procedures Procedure Name Priority Date/Time Associated Diagnosis Comme nts T3 FREE Routine 02/15/2022 10:37 Results for this EDT procedure are i n the results section. FECAL BACTERIAL Routine 01/24/2022 14:50 Results for this PATHOGENS BY PCR EDT procedure a re in the results section. from Last 3 Months Results (ABNORMAL) T3 FREE (02/15/2022 10:37 EDT) Pathologist Sig nature T3, Free 9.3 (H) 2.8 - 5.3 pg/mL [facility] Specimen Blood - Venous blood (substance) Performing Organization Address City/State/ZIP Code Phon e Number [facility] [address] [place] [address] SERVICES FECAL BACTERIAL PATHOGENS BY PCR (01/24/2022 14:50 EDT) Pathologist Sig nature Salmonella PCR Negative Negative [facility] Shigella/Enteroinvasive Negative [facility] HN LAB CAMPYLOBACTER PCR Negative Negative [facility] Shiga Toxin PCR Negative Negative [facility] Specimen Feces - Specimen from rectum (specimen) Performing Organization Address City/State/ZIP Code Phon e Number [facility] [address] [place] [address] SERVICES from Last 3 Months Insurance Payer Benefit Plan Subscriber ID Effective Phone Address Typ e / Group Dates MUTUAL OF MUTUAL OF [id number] 2018-Prese [id number] [place] [address] MEDICARE MEDICARE A/B [id number] 2011-Pres [address] Medicare GL ent [id number] [place] [address] (Work) Jovany Hi Personal/Family Self [address] (Home) [place] [address] (Work) Jovany Hi Personal/Family Self [address] (Home) [place] [address] (Work) Care Teams Medical And Health Services Manager Relationship Specialty Start Date End Date Jennifer Gomez, GTA PCP - General 05/10/15 [facility] [address] [place], [place] [id number]
--- OUTSIDE RECORDS SUMMARY | 2022-03-16 11:01 | XMS_ITS | Encounter Summary ---
:1945 Author Organization [facility] Address [address] [place] [address] Care Team Providers Name Role Phone Jennifer Gomez MS SQL DEVELOPER Primary Care Provider Encounter Details Date Type Department Care Team Description 08/26/2021 Lab Requisition [facility] Najma Valladares for other Pathology & M, DO general examination Laboratory Medicine - [address] [facility] [address] [place] [id number] Social History Tobacco Use Types Packs/Day Years Used Date Never Assessed Sex Assigned at Date Recorded Not on file documented as of this encounter Plan of Treatment Not on filedocumented as of this encounter Procedures Procedure Name Priority Date/Time Associated Diagnosis Comme nts SURGICAL PATHOLOGY Today 08/26/2021 8:45 EST Encounter for o ther Results for this general examination procedur e are in the results section. documented in this encounter Results SURGICAL PATHOLOGY (08/26/2021 8:45 EST) Note to Patient The following [facility] pathology results have CENTER been interpreted by your LABORATORY pathologist and may be SERVICES available to you before your health provider has had the opportunity to review them. Please allow time for your provider to receive these results and explore management options, if applicable. Final Diagnosis A. RECTUM, POLYP, BIOPSY : [facility] - Polypoid submucosal anal glands. CENTER - Overlying rectal mucosa negative for dysplasia. LABORATORY - See comment. SERVICES Diagnosis Comment This rectal polyp shows a cantor bmucosal collection of anal duct glands causing a polypoid configuration. The morphology and the immunohistochemical profile are consistent with a benign (non-neoplastic) pro [facility] cess. Microbiology Analyst slides of this case were reviewed at the gastrointestinal/liver intradepartmental consultation conference. CENTER LABORATORY ANTIBODY(CLONE)(BLOCK):RESULT SERVICES CK7 (RN7, Leica) (A1): Strongly positive PAX-8 (MRQ-50, [place]) (A1): Negative NKX3.1 (Rabbit Polyclonal, Biocare) (A1): Negative GATA3 (L50-823, [place]) (A1): Negative NOTE: One or more of the re agents used in immunoperoxidase testing in this case may not have been cleared or approved by the U.S. Food and Drug Administration (FDA). The FDA has determined that such cl earance or approval is not n ecessary. These tests are used for clinical purposes. They should not be regarded as investigational or for research. These reagents' performance characteristics have been de termined by [facility] and/or by the referring laboratory. The positive and negative controls worked appropriately. If immunoperoxidase staining has been performed on alcoh ol fixed cytology specimens, which has not been fully validated, the assays should be interpreted with caution and correlated with clinical data. This laboratory is certified under the Clinical Laborato ry Improvement Amendments of 1988 (CLIA-88) as qualified to perform high complexity clinical laboratory testing. Attestation By the signature below, [facility] Elec tronically the attending physician CENTER sign ed by Odalis, certifies that they have LABORATORY Tami MD edna on 1) personally conducted SERVICES 2021 at 1309 a gross and/or microscopic examination of the described specimen(s), and/or personally interpreted the results of laboratory testing of the described specimen(s), and 2) personally rendered or confirmed the above diagnosis. Clinical History Flex sigmoidoscopy; [facility] diverticulosis, polyp CENTER LABORATORY SERVICES Gross Description A. [facility] Received in formalin mark d with proper patient identification (initials M, J) and rectal polyp is a marr-brown polyp, 0.6 x 0.5 x 0.4 cm. Bisected and entirely submitted in A1. CENTER LABORATORY ESTEFANY NICHOLS(ASCP) 08/26/2021 16:41 SE RVICES Performing Lab [facility] SERVICES Scanned Images [facility] LABOR[facility] SERVICES Specimen Tissue - Specimen from rectum (specimen) Performing Organization Address City/State/ZIP Code Phon e Number [facility] [address] [place] [address] SERVICES documented in this encounter Visit Diagnoses Diagnosis Encounter for other general examination documented in this encounter Care Teams Brush Machine Setter Relationship Specialty Start Date End Date Jennifer Gomez NP PCP - General 05/10/15 [facility] [address] [place] [id number] documented as of this encounter
--- OUTSIDE RECORDS SUMMARY | 2022-03-16 11:01 | XMS_ITS | Encounter Summary ---
:1945 Author Organization [facility] Address [address] [place] [address] Support Name Relationship Address Phone FRANCI SALINAS Unavailable [address] [facility] [place] [address] FRANCI SALINAS Unavailable [address] [facility] [place] [address] Insurance Providers: All historical and current Section Date Range: From patient's date of to the date document was created.This section includes the names of all active insurance providers for the patient. Insurance Type of Plan Start of End of Group Member Insurance Policy P atient's Provider Coverage Name Policy Policy Number ID Provider's Gregg's Relationship Coverage Coverage Telephone Name to Policy Number Gregg [facility] MEDIGAP PLAN- Dec 30, PLAND [id number] [phone] WILLIE SALINAS PATIENT LIFE AND PLAN D D [id number] HN ANNUITY MEDICARE MEDICARE PART Dec 30, PART B [id number] [phone] WILLIE SALINAS PATIENT (WNR) (M) B 2012 [id number] 1 HN MEDICARE MEDICARE PART May 02, PART A [id number] [phone] WILLIE SALINAS PATIENT (WNR) (M) A 2010 [id number] 1 HN MUTUAL OF MEDIGAP Jul 02, PLANN [id number] [phone] RITA WILLIE PATIENT [place] INS PLAN N 2019 4 0 HN CO Selected Encounter This section includes the information on record at [place] for the Encounter. Date/Time Encounter Type Encounter Description Reason Provider Source Jul 04, 2021 02:56 Outpatient Encounter COMMUNITY CARE PM CONSULT IHE Encounter Template Text not used by VA Plan of Treatment: Future Appointments (+ 6 months) and Future Tests (+/- 45 days) The Plan of Treatment section includes future care activities for the patient from all VA treatmentfacilities. This section includes future appointments and future orders which are active, pending orscheduled.Active, Pending, and Scheduled Orders This section includes a listing of several types of active, pending, and scheduled orders, including clinic medications orders, diagnostic test orders, procedure orders and consult orders; where the start date of the order is 45 days before the date of the Encounter or 45 days after the date of the Encounter. The data comes from all [place] treatment facilities. Test Date/Time Test Type Test Details Facility Name Jul 05, 2021 09:12 AM Consult Order COMMUNITY CARE-PRIMARY [facility] CARE Cons [facility] Sales Consultant's Choice Advance Directives: All historical and current Section Date Range: From patient's date of to the date document was created. This section includes ALL of a patient's completed or amended VA Advance and Rescinded Directives. The entries below indicate that a directive exists for the patient, but an actual copy is not included with this document. The data comes from all [place] facilities. Date Advance Directives Provider Source Jan 15, 2019 ADVANCE DIRECTIVE DISCUSSION STEPHANIE HERNANDEZ [facility] Encounter Notes: All associated encounter notes This section contains the clinical notes associated to the Encounter. Date/Time Encounter Note(s) Provider Source Jul 04, 2021 02:56 PM NONVA NOTE: DEBI HERRERA [facility] LOCAL TITLE: COMMUNITY CARE COORDINATION PLAN [facility] STANDARD TITLE: NONVA NOTE DATE OF NOTE: JUL 04, 2021@14:56 ENTRY DATE: JUL 04, 2021@14:56:23 AUTHOR: DEBI HERRERA EXP COSIGNER: URGENCY: STATUS: COMPLETED COMMUNITY CARE COORDINATION PLAN Has ADDEND A Noted in [facility] report that [place] PCP consu lt is expiring 07/15/2021: Patient seeing [facility], Dr. Uriel rockwell. Phoned [place], apoke to , Kirstin, informed o f this CCC expiring, inviting back to [facility] for [facility]. / c onfirmed preference is to continue PCP in the community due to [facility] geographic inaccessib ility/Distance. Alerting OCC PA to review in considerati on of ordering CC PC for continuity of care and [facility]'s preference. /osiris/ Debi Herrera DNP, MSA, RN-BC [facility] Clinical Milk Tanker Driver Signed: 07/04/2021 14:59 Receipt Acknowledged By: 07/05/2021 09:15 /osiris/ MARY GODDARD PA-C PHYSICIAN'S SENIOR PRODUCT ANALYST CERTIFIED 07/05/2021 ADDENDUM STATUS: COMPLETED OCC PROVIDER NOTE: 'S CC PCP CONSULT WITH DR. DENIA PRADO FOR 12 MO. /osiris/ MARY GODDARD PA-C PHYSICIAN'S SENIOR PRODUCT ANALYST CERTIFIED Signed: 07/05/2021 09:16 Receipt Acknowledged By: * AWAITING SIGNATURE * DEBI HERRERA
--- OUTSIDE RECORDS SUMMARY | 2022-03-16 11:01 | XMS_ITS | Encounter Summary ---
:1945 Author Organization [facility] Address [address] [place] [address] Support Name Relationship Address Phone FRANCI SALINAS Unavailable [address] [facility] [place] [address] FRANCI SALINAS Unavailable [address] [facility] [place] [address] Insurance Providers: All historical and current Section [...] Telephone Name to Policy Number Gregg [facility] MEDIGAP PLAN- Dec 30, PLAND [id number] [phone] RITA WILLIE PATIENT LIFE AND PLAN D D [id number] HN ANNUITY MEDICARE MEDICARE PART Dec 30, PART B [id number] [phone] WILLIE SALINAS PATIENT (WNR) (M) B 2012 QJ90 1 HN MEDICARE MEDICARE PART May 02, PART A [id number] [phone] SALINAS WILLIE PATIENT (WNR) (M) A 2010 QJ90 1 HN MUTUAL OF MEDIGAP Jul 02, PLANN [id number] [phone] RITA WILLIE PATIENT [place] INS PLAN N 2019 4 0 HN CO Selected Encounter This section includes the information on record at [place] for the Encounter. Date/Time Encounter Type Encounter Description Reason Provider Source Apr 15, 2021 12:00 Outpatient Encounter EVENT (HISTORICAL) AM IHE Encounter Template Text not used by VA Plan of Treatment: Future Appointments (+ 6 months) and Future Tests (+/- 45 days) The Plan of Treatment section includes future care activities for the patient from all VA treatmentfacilities. This section includes future appointments and future orders which are active, pending orscheduled.Future Appointments This section includes appointments that were scheduled to occur 6 months from the date of the Encounter, up to a maximum of 20 appointments. The data comes from all [place] treatment facilities. Appointment Date/Time Appointment Type Appointment Facili ty Name Apr 28, 2021 10:00 AM AMBULATORY - MEDICINE [place] [facility] Apr 28, 2021 10:30 AM AMBULATORY - NONE [facility] Apr 29, 2021 03:15 PM AMBULATORY - MEDICINE [place] [facility] Lab Results: +/- 30 days of the encounter This section includes the Chemistry and Hematology Lab Results on record with [place] for the patient. Radiology Reports and Pathology Reports are provided separately, in subsequent sections.Lab Results This section contains the Chemistry/Hematology Results that were resulted 30 days before or 30 daysafter the date of the Encounter. Date/Time Source Result Type Result - Unit Interpretation Reference Range Comment Apr 28, 2021 [place] CREATININE WITH eGFR Specimen T ype: PLASMA 09:59 AM [facility] PANEL Comment: For eG FR: Race unknown, if multiply result by 1.210 Tests performed on [employer] Systems (405) [id number] Ordering Provid er: MILTON UREÑA Report Released Date/Time: Feb 24, 2021 11:18 AM Reporting Lab: [facility] [facility] [address] [facility] [address] Performing Lab: [place] [facility] [address] [facility] [address] CREATININE 1.54 H 0.5-1.5 eGFR 44 L >60 Apr 28, 2021 09:59 AM [place] CBC NO DIFF Specimen Type: BLOOD [facility] No comment enter ed. Ordering Provid er: MILTON UREÑA Report Released Date/Time: Feb 24, 2021 11:18 AM Reporting Lab: [place] [facility] [address] [facility] [address] Performing Lab: [place] [facility] [address] [facility] [address] WBC 5.8 4.5-11.0 RBC 4.61 4.23-5.66 HGB 13.9 12.8-17 HEMATOCRIT 43.6 39.2-50.4 MCV 94.6 82-99 MCH 30.2 26.2-32.6 MCHC 31.9 30.8-35.1 PLT 141 140-360 MPV 12.1 9.2-12.4 RDW 15.0 12.0-16.0 Immunizations: All administered on the encounter date This section contains immunizations associated to the Encounter. Immunization Series Date Issued Reaction Comments INFLUENZA, UNSPECIFIED FORMULATION Apr 15, 2021 Advance Directives: All historical and current Section Date Range: From patient's date of to the date document was created. This section includes ALL of a patient's completed or amended VA Advance and Rescinded Directives. The entries below indicate that a directive exists for the patient, but an actual copy is not included with this document. The data comes from all [place] facilities. Date Advance Directives Provider Source Jan 15, 2019 ADVANCE DIRECTIVE DISCUSSION [facility]
--- OUTSIDE RECORDS SUMMARY | 2022-03-16 11:01 | XMS_ITS | Encounter Summary ---
:[address] [facility] Address [address] [place] [address] Care Team Providers Name Role Phone Jennifer Gomez DINING MANAGER Primary Care Provider Encounter Details Date Type Department Care Team Description 01/25/2022 Lab Requisition [facility] Outr Resulting Lab, Pathology & Laboratory Provider [facility] [address], [place] [id number] Social History Tobacco Use Types Packs/Day Years Used Date Never Assessed Sex Assigned at Date Recorded Not on file documented as of this encounter Plan of Treatment Not on filedocumented as of this encounter Procedures Procedure Name Priority Date/Time Associated Diagnosis Comme nts FECAL BACTERIAL Routine 01/24/2022 14:50 Results for this PATHOGENS BY PCR EDT procedure a re in the results section. documented in this encounter Results FECAL BACTERIAL PATHOGENS BY PCR (01/24/2022 14:50 EDT) Pathologist Sig nature Salmonella PCR Negative Negative [facility] Shigella/Enteroinvasive Negative Negative [facility] HN LAB CAMPYLOBACTER PCR Negative Negative [facility] ER [facility]ORATORY SERVICES Shiga Toxin PCR Negative Negative [facility] Specimen Feces - Specimen from rectum (specimen) Performing Organization Address City/State/ZIP Code Phon e Number [facility] [address] [place] [address] SERVICES documented in this encounter Visit Diagnoses Not on filedocumented in this encounter Care Teams Access Registrar Relationship Specialty Start Date End Date Jennifer Gomez, DINING MANAGER PCP - General 05/10/15 [facility] [address] [place], [place] [id number] documented as of this encounter
--- OUTSIDE RECORDS SUMMARY | 2022-03-16 11:01 | XMS_ITS | Encounter Summary ---
:1945 Author Organization [facility] Address [address] [place] [address] Support Name Relationship Address Phone FRANCI SALINAS Unavailable [address] [facility] [place] [address] FRANCI SALINAS Unavailable [address] [place] [address] [place] [address] Insurance Providers: All historical and current Section Date Range: From patient's date of to the date document was created.This section includes the names of all active insurance providers for the patient. Insurance Type of Plan Start of End of Group Member Insurance Policy P atient's Provider Coverage Name Policy Policy Number ID Provider's Gregg's Relationship Coverage Coverage Telephone Name to Policy Number Gregg [facility] MEDIGAP PLAN- Dec 30, PLAND [id number] [phone] WILLIE SALINAS PATIENT LIFE AND PLAN D D [phone] HN ANNUITY MEDICARE MEDICARE PART Dec 30, PART B [id number] [id number] RITA WILLIE PATIENT (WNR) (M) B 2012 [id number] HN MEDICARE MEDICARE PART May 02, PART A [id number] [id number] RITA WILLIE PATIENT (WNR) (M) A 2010 [id number] 1 HN MUTUAL OF MEDIGAP Jul 02, PLANN [id number] [phone] WILLIE SALINAS PATIENT [place] [place] [employer] PLAN N 2019 4 0 HN CO Selected Encounter This section includes the information [facility] record at [facility] for the Encounter. Date/Time Encounter Type Encounter Reason Provider Source Description Apr 28, 2021 OFFICE O/P EST PRIMARY ICD-10-CM Z23 AYALA PERSAUD 10:00 AM MINIMAL PROB CARE/MEDICINE Encounter for ORA A immunization with Provider Comments: Encounter for Immunization IHE Encounter Template Text not used by [facility] Assessments - Encounter Diagnoses This section includes the primary and secondary diagnoses documented for the Encounter. Date/Time Primary/Secondary Diagnosis Name Provider Source Diagnosis Apr 28, 2021 PRIMARY Encounter for NAIMA PERSAUD Y 02:31 PM immunization RA A [facility] Plan of Treatment: Future Appointments (+ 6 months) and Future Tests (+/- 45 days) The Plan of Treatment section includes future care activities for the patient from all ID treatmentfacilities. This section includes future appointments and future orders which are active, pending orscheduled.Future Appointments This section includes appointments that were scheduled to occur 6 months from the date of the Encounter, up to a maximum of 20 appointments. The data comes from all ID treatment facilities. Appointment Date/Time Appointment Type Appointment Facili ty Name Apr 29, 2021 03:15 PM AMBULATORY - MEDICINE [facility] Lab Results: +/- 30 days [...] multiply result by 1.210 Tests performed on [place] (405) [id number] Ordering Provid er: MILTON UREÑA Report Released Date/Time: Feb 24, 2021 11:18 AM Reporting Lab: [facility] [address] [place] [facility] [place] [address] Performing Lab: [facility] [address] [place] [facility] [place] [address] CREATININE 1.54 H 0.5-1.5 eGFR 44 L >60 Apr 28, 2021 09:59 AM [place] [facility] NO DIFF Specimen Type: BLOOD [facility] No comment enter ed. Ordering Provid er: MILTON UREÑA Report Released Date/Time: Feb 24, 2021 11:18 AM Reporting Lab: [facility] [address] [place] [facility] [place] [address] Performing Lab: [facility] [address] [place] [facility] [place] [address] WBC 5.8 4.5-11.0 RBC 4.61 4.23-5.66 HGB 13.9 12.8-17 HEMATOCRIT 43.6 39.2-50.4 MCV 94.6 82-99 MCH 30.2 26.2-32.6 MCHC 31.9 30.8-35.1 PLT 141 140-360 MPV 12.1 9.2-12.4 RDW 15.0 12.0-16.0 Immunizations: All administered on the encounter date This section contains immunizations associated to the Encounter. Immunization Series Date Issued Reaction Comments ZOSTER RECOMBINANT 2 Apr 28, 2021 Social History: Smoking Status (Most current) and Tobacco Use (All prior to encounter date) This section includes the most current, and the historical, smoking and tobacco-related health factors from the ID facility where the Encounter took place.Current Smoking Status This section includes the most current smoking, or tobacco-related health factor, from the ID facility where the Encounter took place. Date/Time Current Smoking Status Comment Facility Feb 22, 2021 10:00 AM VA-TOBACCO FORMER USER [facility] Tobacco Use History This section includes a history of the smoking, or tobacco- related health factors, that were collected on or before the date of the Encounter. The data comes from the ID facility where the Encounter took place. Date/Time Smoking Status/Tobacco Use Comment [facility] Feb 22, 2021 10:00 AM VA-TOBACCO QUIT < 1 YEAR S [facility] Feb 22, 2021 10:00 AM VA-TOBACCO QUIT 1 TO < 5 S [facility] YRS Mar 04, 2020 01:00 PM VA-TOBACCO FORMER USER [facility] Mar 04, 2020 01:00 PM VA-TOBACCO QUIT < 1 YEAR S [facility] Mar 21, 2018 02:43 PM VA-TOBACCO USE 30 YEARS OR [facility] MORE Mar 21, 2018 02:43 PM VA-TOBACCO USE ADVICE [facility] Mar 21, 2018 02:43 PM VA-TOBACCO USE EXPERT WITNESS NO [facility] Mar 21, 2018 02:43 PM VA-TOBACCO USE MED NO [facility] Mar 21, 2018 02:43 PM VA-TOBACCO USE WI 30 MIN S [facility] Mar 21, 2018 02:43 PM VA-TOBACCO USER EVERY DAY [facility] Jan 16, 2018 02:[address] [facility] Jan 16, 2018 02:53 PM V1-PT NOT INTERESTED IN [facility] QUIT TOBACCO USE Apr 17, 2016 11:[address] [facility] smokes about half a pack a day Apr 17, 2016 11:05 AM V1-PT NOT INTERESTED IN [place] [facility] QUIT TOBACCO USE Apr 22, 2015 01:[address] [facility] smokes about half a pack a day Apr 22, 2015 01:58 PM V1-PT NOT INTERESTED IN Ste[place]any [facility] QUIT TOBACCO USE Advance Directives: All historical and current Section Date Range: From patient's date of to the date document was created. This section includes ALL of a patient's completed or amended [facility] Advance and Rescinded Directives. The entries below indicate that a directive exists for the patient, but an actual copy is not included with this document. The data comes from all ID facilities. Date Advance Directives Provider Source Jan 15, 2019 ADVANCE DIRECTIVE DISCUSSION STEPHANIE HERNANDEZ [facility] Encounter Notes: All associated encounter notes This section contains the clinical notes associated to the Encounter. Date/Time Encounter Note(s) Provider Source Apr 28, 2021 02:56 PM PRIMARY CARE ANNUAL EVALUATION NOTE: SAMMY LIZARRAGA [facility] LOCAL TITLE: Preventive Health Annual Review STANDARD TITLE: PRIMARY CARE ANNUAL EVALUATION N OTE DATE OF NOTE: APR 28, 2021@14:56 ENTRY DATE: APR 28, 2021@14:57:15 AUTHOR: SAMMY PERSAUD EXP COSIGNER: URGENCY: STATUS: COMPLETED Influenza Immunization: The patient has received the seasonal influenza vaccine for the current season at another location. Date: April 15, 2021 Location: [facility] Provider Homelessness/Food Insecurity Screen: In the past 2 months, have you been living in s table housing that you own, rent, or stay in as part of a household? Y es - Living in stable housing. Are you worried or concerned that in the next 2 months you may NOT have stable housing that you own, rent, or stay in a s part of a household? No - Not worried about housing near future The [place] reports the following: Within the past 12 months, you worried whether your food would run out before you got money to buy more. Never true Within the past 12 months, the food you bought just didn't last and you didn't have money to get more. Never true /osiris/ SAMMY PERSAUD RN Signed: 04/28/2021 14:59 Apr 28, 2021 02:28 PM PRIMARY CARE NOTE: SAMMY PERSAUD [facility] LOCAL TITLE: Display Decorator Note STANDARD TITLE: PRIMARY CARE NOTE DATE OF NOTE: APR 28, 2021@14:28 ENTRY DATE: APR 28, 2021@14:28:39 AUTHOR: SAMMY PERSAUD EXP COSIGNER: URGENCY: STATUS: COMPLETED Zoster Vaccine (Shingrix): The patient received recombinant zoster vaccine (RZV) 0.5 ml IM in Left deltoid. Merchandise Pickup/Receiving Associate: [employer] Lot#s and Expiration Date: [id number] EXP 09/30/22 A DJ [id number] EXP 09/30/22 Administered by protocol/policy Complications: None /osiris/ SAMMY PERSAUD RN Signed: 04/28/2021 14:31
--- OUTSIDE RECORDS SUMMARY | 2022-03-16 11:01 | XMS_ITS | Continuity of Care Document ---
:1945 Author Organization [facility] Care Team Providers Name Role Phone [facility] Unavailable Unavailable Problems Combined list of problems from Department of Defense and Veterans Affairs facilities. It does not include entries that were removed or entered in error. Problem Status Onset Problem Type Date of Comments Source Date Resolution Acute pulmonary Active Condition [place] embolism [place] [facility] Asymmetrical Active Condition [place] sensorineural hearing [place] [facility] loss Atrial fibrillation Active Condition [place] [facility] Hypoventilation Active Condition [place] [facility] Long-term current use Active Condition [place] of anticoagulant [place] [facility] STEMI - ST elevation Active Condition [place] myocardial infarction [place] [facility] Subjective tinnitus Active Condition [place] [facility] Tobacco dependence, Active Condition [place] continuous [place] [facility] Diagnosis: ICD-10-CM Active Diagnosis [place] Z79.01 intermediate [place] [facility] (current) use of anticoagulantswith Provider Comments: Long-term current use of anticoagulant (SCT [id number]) Diagnosis: ICD-10-CM Active Diagnosis ST. Z23 Encounter for [place] immunizationwith CBO C Provider Comments: Encounter for Immunization Diagnosis: ICD-10-CM Active Diagnosis ST. H90.3 Sensorineural [facility] hearing loss, CBOC bilateralwith Provider Comments: Asymmetrical sensorineural hearing loss (SNOMED CT [id number]) Diagnosis: ICD-10-CM Active Diagnosis ST. 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 Medications provided include 1) outpatient medications from the last 15 months, and 2) patient-reported medications. Medication Details Route Status Patient Prescription Prescription Last Ordering Order Source Instructions Expires Number Dispense Provider Date Date AMIODARONE TAKE ONE ORAL ACTIVE 02/14/2023 [id number] JORGE A LOZA HCL TABLET 2 N 2021 [place] (PACERONE) BY MOUTH [place] 200MG TAB EVERY [facility] DAY AFTER ONE MONTH OF TWICE DAILY DOSING THROUGH 02/26/22 APIXABAN TAKE ONE ORAL ACTIVE 2023 [id number] WILLIE LOZA 01/20/ Departm 5MG TAB TABLET 2 N 2021 ent of BY MOUTH TWICE A s DAY TO Affairs HELP PREVENT BLOOD CLOTS (ANTICOA GULATION CCNRX) APIXABAN TAKE ONE ORAL 12/21/2021 [id number] GIANGR ECO 12/30/ WHITE 5MG TAB TABLET 2 ,MILTON Will 2020 [place] BY MOUTH [place] EVERY [facility] TWELVE HOURS TO HELP PREVENT BLOOD CLOTS (ANTICOA GULATION ) ASPIRIN TAKE ONE ORAL ACTIVE GIANGRECO 12/20/ WHI TE 81MG TAB,EC TABLET ,MILTON Will 2020 ANNALEE ER BY MOUTH [place] EVERY [facility] [place] DAY CHOLECALCIF TAKE ONE ORAL ACTIVE IRASEMA,P 04/22/ ST. DARIO 25MCG TABLET KARYY A 2014 [place] (1,000UNIT) BY MOUTH RY CB OC TAB EVERY OTHER DAY FUROSEMIDE TAKE ONE ORAL ACTIVE 12/17/2022 [id number] JORGE A LOZA 12/21/ Departm 20MG TAB TABLET 2 N 2021 ent of BY MOUTH EVERY s OTHER Affairs DAY TO REMOVE FLUID/CO NTROL BLOOD PRESSURE FUROSEMIDE TAKE ONE ORAL 11/12/2021 [id number] SJ PATTONM 11/12/ ST. 20MG TAB TABLET 2 ICHAEL 2020 [place] BY MOUTH RY CBOC EVERY OTHER DAY TO REMOVE FLUID/CO NTROL BLOOD PRESSURE LISINOPRIL TAKE ONE ORAL ACTIVE 12/17/2022 [id number] JORGE A LOZA 12/21/ Departm 5MG TAB TABLET 2 N 2021 ent of BY MOUTH [place] EVERY s DAY TO Affairs CONTROL BLOOD PRESSURE LISINOPRIL TAKE ONE ORAL DISCONT 06/08/2022 [id number] JORGE A LOZA 06/15/ WHITE 5MG TAB TABLET INUED 2 N 2020 [place] BY MOUTH [place] EVERY [facility] DAY TO CONTROL BLOOD PRESSURE LISINOPRIL TAKE ONE ORAL 06/03/2021 [id number] SJ PATTON,M 06/08/ ST. 5MG TAB TABLET 1 ICHAEL 2019 [place] BY MOUTH RY CBOC EVERY DAY TO CONTROL BLOOD PRESSURE METOPROLOL TAKE ONE ORAL ACTIVE 02/14/2023 [id number] JORGE A LOZA 02/15/ WHITE SUCCINATE TABLET 2 N 2021 R[place] 25MG TAB,SA BY MOUTH [place] EVERY VAM[facility]OC DAY FOR BLOOD PRESSURE /HEART METOPROLOL TAKE ONE ORAL DISCONT 02/23/2022 [id number] SJ PATTONM 02/28/ ST. SUCCINATE TABLET INUED 2 ICHAEL 2020 [place] 25MG TAB,SA BY MOUTH RY CB OC EVERY DAY FOR BLOOD PRESSURE /HEART NITROGLYCER TAKE ONE SUBLIN 02/23/2022 [id number] Mery LR 02/28/ ST. IN 0.4MG TABLET GUAL 1 2020 [place] TAB,SUBLING UNDER RY CBOC UAL THE TONGUE EVERY 5 MINUTES NEEDED FOR CHEST PAIN (ANGINA) MAY REPEAT FOR THREE DOSES (IF NO RELIEF,S [facility] N PROMPTLY ) TIOTROPIUM INHALE DISCONT 07/16/2021 [id number] Tamra LOZA 07/21/ WHITE 18MCG ONE INUED 1 N 2020 [place]IVER CAP,INHL,90 CAPSULE [place] IN [facility] INHALER BY MOUTH EVERY DAY FOR BREATHIN G - INHALATI ON ONLY, DO NOT SWALLOW CAPSULES Allergies, Adverse Reactions, Alerts Combined list of allergies from Department of Defense and Veterans Affairs facilities. It does not include entries that were removed or entered in error. Substance Category Reaction Severity Reaction Status Date Comments S ource type Reported ATORVASTATIN/ Propensity Headache Propensity active WHITE EZETIMIBE to adverse to adverse 5 RIVER reactions reactions [place] to drug to drug VAOC (finding) (finding) EVOLOCUMAB Propensity Joint Propensity active WHITE to adverse pain to adverse 7 RI DORI reactions reactions [place] to drug to drug [facility] (finding) (finding) FABRIC Propensity Eruption Propensity active WHITE SOFTENER to adverse to adverse 5 R IVER reaction reaction J[place] (finding) (finding) VAM[facility] OC LOVASTATIN Propensity Fever Propensity active WHITE to adverse to adverse 5 RI DORI reactions reactions [place] to drug to drug VAOC (finding) (finding) PENICILLIN Propensity Propensity active WHITE to adverse to adverse 5 RI DORI reactions reactions [place] to drug to drug [facility] (finding) (finding) PRAVASTATIN Propensity Skin MODERATE Propensity active WHITE to adverse lesion to adverse 9 RI DORI reactions reactions [place] to drug to drug [facility] (finding) (finding) ROSUVASTATIN Propensity Muscle SEVERE Propensity active WHITE to adverse pain to adverse 6 RI DORI reactions reactions [place] to drug to drug [facility] (finding) (finding) SIMVASTATIN Propensity Fever Propensity active WHITE to adverse to adverse 5 RI DORI reactions reactions [place] to drug to drug [facility] (finding) (finding) Immunizations Combined list of available immunizations from the Department of Defense and Veterans Affairs facilities. 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 RECOMBINANT 2020 ed WILLEI [place] RY CBOC INFLUENZA, complet WHITE UNSPECIFIED 2020 ed RI DORI FORMULATION ANILA T [facility] ZOSTER [address] RECOMBINANT 2020 ed [place]IE [place] RY CBOC COVID-19 2 complet WH ITE (MODERNA), 2020 ed ANNALEE ER MRNA, LNP-S, J CT PF, 100 V[facility]OC MCG/0.5 ML DOSE COVID-19 1 complet WH ITE (MODERNA), 2020 ed ANNALEE ER MRNA, LNP-S, J CT PF, 100 [facility]OC MCG/0.5 ML DOSE PNEUMOCOCCAL complet ST. POLYSACCHARID 2020 ed [place] E PPV23 RY CBO C TDAP complet ST. 2020 ed [place] RY CBOC INFLUENZA, complet Site: ST. SEASONAL, 2018 ed Right ANGEL LUIS SBU INJECTABLE Deltoid R Y CBOC INFLUENZA, complet WHITE UNSPECIFIED 2015 ed RI DORI FORMULATION ANILA T [facility] INFLUENZA, complet St WHITE UNSPECIFIED 2014 ed [place] FORMULATION [facility] TD(ADULT) complet W JIMBO UNSPECIFIED 2009 ed RI DORI FORMULATION [facility] T [facility] Results Combined list of recent chemistry, hematology and other laboratory results from Department of Defense and Veterans Affairs, ranging from 15 months to all on record, depending upon the facility. Order Results Value Reference Date Interpretation Specimen Commen ts Source Name Range CREATININ CREATININE 1.54 0.5 - 1.5 04/28 H Specimen Type: PLASMA WHITE E WITH [MASS/VOLUM /2020 Comment: Fo r eGFR: Race unknown, if multiply result by 1.210 Tests performed on G[employer]alez [employer] (405) SN:[id number] [place] eGFR E] IN SERUM Ordering Pr ovider: MILTON UREÑA [facility] PANEL OR PLASMA Report Releas ed Date/Time: Feb 24, 2021 11:18 AM Reporting Lab: [place] [facility] [facility] [address] [place] [facility] [place] [address] Performing Lab: [place] [facility] [address] [facility] [address] CREATININ GLOMERULAR 44 60 04/28 L Specimen Ty pe: PLASMA WHITE E WITH FILTRATION /2020 Comment: For eGFR: Race unknown, if multiply result by 1.210 Tests performed on [employer] (405) SN:[id number] [place] eGFR RATE/1.73 Ordering Prov ider: [place] UREÑA [facility] PANEL SQ Report Released Date/Time: Feb 24, 2021 11:18 AM M.PREDICTED Reporting L ab: [place] [facility] [VOLUME [address] [place] [facility] [place] [address] RATE/AREA] Performing L ab: [place] [facility] IN SERUM OR [address] [facility] [address] PLASMA BY CREATININE- BASED FORMULA (MDRD) CBC NO LEUKOCYTES 5.8 4.5 - 11.0 04/28 Specimen T ype: BLOOD WHITE DIFF [#/VOLUME] /2020 No comment en tered. [place] IN BLOOD BY Ordering Pr ovider: [place] [facility] AUTOMATED Report Releas ed Date/Time: Feb 24, 2021 11:18 AM COUNT Reporting Lab: [place] [facility] [address] [place] [facility] [place] [address] Performing Lab: [place] [facility] [address] [facility] [address] CBC NO ERYTHROCYTE 4.61 4.23 - 04/28 Specimen Typ e: BLOOD WHITE DIFF S 5.66 /2020 No comment enter ed. [place] [#/VOLUME] Ordering Pro vider: [place] UREÑA [facility] IN BLOOD BY Report Rele ased Date/Time: Feb 24, 2021 11:18 AM AUTOMATED Reporting Lab : [place] [facility] COUNT [address] [place] [facility] [place] [address] Performing Lab: [place] [facility] [address] [place] [facility] [place] [address] CBC NO HEMOGLOBIN 13.9 12.8 - 17 04/28 Specimen Ty pe: BLOOD WHITE DIFF [MASS/VOLUM /2020 No comment e ntered. [place] E] IN BLOOD Ordering Pr ovider: MILTON UREÑAOC Report Released Date/Time: Feb 24, 2021 11:18 AM Reporting Lab: [place] [facility] [facility] [address] [place] [facility] [place] [address] Performing Lab: [place] [facility] [address] [place] [facility] [place] [address] CBC NO HEMATOCRIT 43.6 39.2 - 04/28 Specimen Type : BLOOD WHITE DIFF [VOLUME 50.4 No comment enter ed. [place] FRACTION] Ordering Prov ider: MIL[place] UREÑA [facility] OF BLOOD BY Report Rele ased Date/Time: Feb 24, 2021 11:18 AM AUTOMATED Reporting Lab : [place] [facility] COUNT [address] [place] [facility] [place] [address] Performing Lab: [place] [facility] [address] [place] [facility] [place] [address] CBC NO MCV 94.6 82 - 99 04/28 Specimen Type: B LOOD WHITE DIFF [ENTITIC /2020 No comment ente red. [place] VOLUME] BY Ordering Pro vider: MILTON UREÑAOC AUTOMATED Report Releas ed Date/Time: Feb 24, 2021 11:18 AM COUNT Reporting Lab: [place] [facility] [address] [place] [facility] [place] [address] Performing Lab: [place] [facility] [address] [place] [facility] [place] [address] CBC NO MCH 30.2 26.2 - 04/28 Specimen Type: B LOOD WHITE DIFF [ENTITIC 32.6 /2020 No comment ente red. [place] MASS] BY Ordering Provi adrian: MILTON UREÑAOC AUTOMATED Report Releas ed Date/Time: Feb 24, 2021 11:18 AM COUNT Reporting Lab: [place] [address] [place] [facility] [place] [address] Performing Lab: [place] [facility] [address] [place] [facility] [place] [address] CBC NO MCHC 31.9 30.8 - 04/28 Specimen Type: B LOOD WHITE DIFF [MASS/VOLUM 35.1 /2020 No comment e ntered. [place] E] BY Ordering Provid er: MILTON UREÑA AUTOMATED Report Releas ed Date/Time: Feb 24, 2021 11:18 AM COUNT Reporting Lab: [place] [facility] [address] [place] [facility] [place] [address] Performing Lab: [place] [facility] [address] [place] [facility] [place] [address] CBC NO PLATELETS 141 140 - 360 04/28 Specimen Typ e: BLOOD WHITE DIFF [#/VOLUME] /2020 No comment en tered. [place] IN BLOOD BY Ordering Pr ovider: MILTON UREÑAMR[facility] AUTOMATED Report Releas ed Date/Time: Feb 24, 2021 11:18 AM COUNT Reporting Lab: [place] [address] [place] [facility] [place] [address] Performing Lab: [place] [address] [place] [facility] [place] [address] CBC NO PLATELET 12.1 9.2 - 12.4 04/28 Specimen Typ e: BLOOD WHITE DIFF MEAN VOLUME /2020 No comment e ntered. [place] [ENTITIC Ordering Provi adrian: MILTON UREÑAOC VOLUME] IN Report Relea sed Date/Time: Feb 24, 2021 11:18 AM BLOOD BY Reporting Lab: [place] [facility] AUTOMATED [address] [place] [facility] [place] [address] COUNT Performing Lab: [place] [facility] [address] [place] [facility] [place] [address] CBC NO ERYTHROCYTE 15.0 12.0 - 04/28 Specimen Typ e: BLOOD WHITE DIFF DISTRIBUTIO 16.0 No comment e ntered. [place] N WIDTH Ordering Provid er: MILTON UREÑAOC [RATIO] BY Report Relea sed Date/Time: Feb 24, 2021 11:18 AM AUTOMATED Reporting Lab : [place] [facility] COUNT [address] [place] [facility] [place] [address] Performing Lab: [place] [facility] [address] [place] [facility] [place] [address] CREATININ CREATININE 1.37 0.5 - 1.5 02/22 Specimen Type: PLASMA WHITE E WITH [MASS/VOLUM /2020 Comment: Fo r eGFR: Race unknown, if multiply result by 1.210 Tests performed on [employer] (405) SN:[id number] [place] eGFR E] IN SERUM Ordering Pr ovider: MILTON UREÑAMROC PANEL OR PLASMA Report Releas ed Date/Time: Dec 20, 2020 02:24 PM Reporting Lab: [place] [facility] [address] [place] [facility] [place] [address] Performing Lab: [place] [facility] [address] [place] [facility] [place] [address] CREATININ GLOMERULAR 51 60 02/22 L Specimen Ty pe: PLASMA WHITE E WITH FILTRATION /2020 Comment: For eGFR: Race unknown, if multiply result by 1.210 Tests performed on [employer] (405) SN:[id number] [place] eGFR RATE/1.73 Ordering Prov ider: MIL[place] UREÑ[facility]ROC PANEL SQ Report Released Date/Time: Dec 20, 2020 02:24 PM M.PREDICTED Reporting L ab: [place] [facility] [VOLUME [address] [place] [facility] [place] [address] RATE/AREA] Performing L ab: [place] [facility] IN SERUM OR [address] [place] [facility] [place] [address] PLASMA BY CREATININE- BASED FORMULA (MDRD) CBC NO LEUKOCYTES 6.8 4.5 - 11.0 02/22 Specimen T ype: BLOOD WHITE DIFF [#/VOLUME] /2020 No comment en tered. [place] IN BLOOD BY Ordering Pr ovider: MILTON UREÑ[facility]ROC AUTOMATED Report Releas ed Date/Time: Dec 20, 2020 02:24 PM COUNT Reporting Lab: [facility] [place] [facility] [address] [place] [facility] [place] [address] Performing Lab: [place] [address] [place] [facility] [place] [address] CBC NO ERYTHROCYTE 5.03 4.23 - 08 Specimen Typ e: BLOOD WHITE DIFF S 5.66 /2020 No comment enter ed. [place] [#/VOLUME] Ordering Pro vider: MILTON UREÑ[facility]ROC IN BLOOD BY Report Rele ased Date/Time: Dec 20, 2020 02:24 PM AUTOMATED Reporting Lab : [place] [facility] COUNT [address] [facility] [address] Performing Lab: [facility] [facility] [address] [facility] [address] CBC NO HEMOGLOBIN 14.9 12.8 - 17 02/22 Specimen Ty pe: BLOOD WHITE DIFF [MASS/VOLUM /2020 No comment e ntered. [place] E] IN BLOOD Ordering Pr ovider: MILTON UREÑA Report Released Date/Time: Dec 20, 2020 02:24 PM Reporting Lab: [facility] [place] [address] [place] [facility] [place] [address] Performing Lab: [facility] [place] [facility] [address] [place] [facility] [place] [address] CBC NO HEMATOCRIT 46.7 39.2 - 02/22 Specimen Type : BLOOD WHITE DIFF [VOLUME 50.4 No comment enter ed. [place] FRACTION] Ordering Prov ider: MILTON UREÑAOC OF BLOOD BY Report Rele ased Date/Time: Dec 20, 2020 02:24 PM AUTOMATED Reporting Lab : [facility] [place] [facility] COUNT [address] [place] [facility] [place] [address] Performing Lab: [facility] [facility] [address] [place] [facility] [place] [address] CBC NO MCV 92.8 82 - 99 02/22 Specimen Type: B LOOD WHITE DIFF [ENTITIC /2020 No comment ente red. [place] VOLUME] BY Ordering Pro vider: MILTON UREÑAOC AUTOMATED Report Rele ed Date/Time: Dec 20, 2020 02:24 PM COUNT Reporting Lab: [facility] [facility] [address] [facility] [address] Performing Lab: [place] [facility] [address] [facility] [address] CBC NO MCH 29.6 26.2 - 08 Specimen Type: B LOOD WHITE DIFF [ENTITIC 32.6 /2020 No comment ente red. [place] MASS] BY Ordering Provi adrian: MILTON UREÑA AUTOMATED Report Releas ed Date/Time: Dec 20, 2020 02:24 PM COUNT Reporting Lab: [facility] [place] [facility] [address] [facility] [address] Performing Lab: [place] [facility] [address] [facility] [address] CBC NO MCHC 31.9 30.8 - 08 Specimen Type: B LOOD WHITE DIFF [MASS/VOLUM 35.1 /2020 No comment e ntered. [place] E] BY Ordering Provid er: MILTON UREÑA AUTOMATED Report Releas ed Date/Time: Dec 20, 2020 02:24 PM COUNT Reporting Lab: [facility] [place] [facility] [address] [facility] [address] Performing Lab: [place] [facility] [address] [facility] [address] CBC NO PLATELETS 159 140 - 360 08 Specimen Typ e: BLOOD WHITE DIFF [#/VOLUME] /2020 No comment en tered. [place] IN BLOOD BY Ordering Pr ovider: MILTON UREÑA AUTOMATED Report Releas ed Date/Time: Dec 20, 2020 02:24 PM COUNT Reporting Lab: [facility] [place] [facility] [address] [facility] [address] Performing Lab: [place] [facility] [address] [facility] [address] CBC NO PLATELET 13.0 9.2 - 12.4 08/24 H Specimen Typ e: BLOOD WHITE DIFF MEAN VOLUME /2020 No comment e ntered. [place] [ENTITIC Ordering Provi adrian: MILTON UREÑA VOLUME] IN Report Relea sed Date/Time: Dec 20, 2020 02:24 PM BLOOD BY Reporting [facility]: [facility] [address] [facility] [address] COUNT Performing Lab: [facility] [address] [facility] [address] CBC NO ERYTHROCYTE 14.6 12.0 - 08/24 Specimen Typ e: BLOOD WHITE DIFF DISTRIBUTIO 16.0 /2020 No comment e ntered. [place] N WIDTH Ordering Provid er: MIL[place] UREÑA [facility] [RATIO] BY Report Relea sed Date/Time: Dec 20, 2020 02:24 PM AUTOMATED Reporting Lab : [facility] COUNT [address] [facility] [address] Per[facility]: [facility] [address] [facility] [address] P4 UREA 20 7 - 25 08/24 Specimen Type: P LASMA ST. GLU,BUN,C NITROGEN /2020 Comment: For eGFR: Race unknown, if multiply result by 1.210 Tests performed on QRGL (405) SN:[id number] IVORY BECKETT [MASS/VOLUM Ordering Provider: GRETCHEN PEREZ CA E] IN SERUM Report Rele ased Date/Time: Feb 22, 2021 10:13 AM OR PLASMA Reporting Lab : [facility] [address] [facility] [address] Per[facility] Lab: [facility] [address] [facility] [address] P4 SODIUM 133 135 - 145 08/24 L Specimen Type: PLASMA ST. GLU,BUN,C [MOLES/VOLU /2020 Comment: For eGFR: Race unknown, if multiply result by 1.210 Tests performed on QRGL (405) SN:[id number] IVORY BECKETT ME] IN Ordering Prov ider: GRETCHEN PEREZ CA SERUM OR Report Release d Date/Time: Feb 22, 2021 10:13 AM PLASMA Reporting Lab: [facility] [address] [facility] [address] Performing Lab: [facility] [address] [facility] [address] P4 POTASSIUM 4.5 3.5 - 5.0 02/22 Specimen Typ e: PLASMA ST. GLU,BUN,C [MOLES/VOLU /2020 Comment: For eGFR: Race unknown, if multiply result by 1.210 Tests performed on [employer] (405) SN:[id number] IVORY BECKETT [place]] IN Ordering Prov ider: GRETCHEN PEREZ [place] SERUM OR Report Release d Date/Time: Feb 22, 2021 10:13 AM PLASMA Reporting Lab: [facility] [address] [place] [facility] [place] [address] Performing Lab: [facility] [address] [place] [facility] [place] [address] P4 CHLORIDE 102 100 - 110 02/22 Specimen Type : PLASMA ST. GLU,BUN,C [MOLES/VOLU /2020 Comment: For eGFR: Race unknown, if multiply result by 1.210 Tests performed on G[employer]alez [employer] (405) SN:[id number] IVORY BECKET[place]] IN Ordering Prov ider: GRETCHEN PEREZ CA SERUM OR Report Release d Date/Time: Feb 22, 2021 10:13 AM PLASMA Reporting Lab: [facility] [address] [place] [facility] [place] [address] Performing Lab: [place] [facility] [address] [place] [facility] [place] [address] P4 CARBON 21 20 - 30 02/22 Specimen Type: P LASMA ST. GLU,BUN,C DIOXIDE, /2020 Comment: For eGFR: Race unknown, if multiply result by 1.210 Tests performed on G[employer]alez [employer] (405) SN:[id number] IVORY BECKETT [facility] Ordering Prov ider: GRETCHEN PEREZ S,CA [MOLES/VOLU Report Rele ased Date/Time: Feb 22, 2021 10:13 AM [place]] IN Reporting Lab: [place] [facility] SERUM OR [address] [place] [facility] [place] [address] PLASMA Performing Lab: [place] [facility] [address] [place] [facility] [place] [address] P4 ANION GAP 10 4 - 16 02/22 Specimen Type: PLASMA ST. GLU,BUN,C IN SERUM OR /2020 Comment: For eGFR: Race unknown, if multiply result by 1.210 Tests performed on [employer] (405) SN:[id number] BLAIR BECKETTTE PLASMA Ordering Prov ider: GRETCHEN PEREZ CA Report Released Date/Time: Feb 22, 2021 10:13 AM Reporting Lab: [facility] [address] [facility] [address] Performing Lab: [facility] [address] [facility] [address] P4 GLUCOSE 106 65 - 100 08/24 H Specimen Type: PLASMA ST. GLU,BUN,C [MASS/VOLUM /2020 Comment: For eGFR: Race unknown, if multiply result by 1.210 Tests performed on [employer] Associate (405) SN:[id number] MARCELA NYELYTE E] IN SERUM Ordering Provider: GRETCHEN PEREZ CA OR PLASMA Report Releas ed Date/Time: Feb 22, 2021 10:13 AM Reporting Lab: [facility] [address] [facility] [address] Performing Lab: [facility] [address] [facility] [address] P4 CREATININE 1.37 0.5 - 1.5 02/22 Specimen Ty pe: PLASMA ST. GLU,BUN,C [MASS/VOLUM /2020 Comment: For eGFR: Race unknown, if multiply result by 1.210 Tests performed on [employer] (405) SN:[id number] BLAIR BECKETTTE E] IN SERUM Ordering Provider: GRETCHEN PEREZ CA OR PLASMA Report Releas ed Date/Time: Feb 22, 2021 10:13 AM Reporting Lab: [facility] [address] [facility] [address] Performing Lab: [facility] [address] [facility] [address] P4 CALCIUM 9.6 8.5 - 10.5 02/22 Specimen Type : PLASMA ST. GLU,BUN,C [MASS/VOLUM /2020 Comment: For eGFR: Race unknown, if multiply result by 1.210 Tests performed on [employer] (405) SN:[id number] MARCELA NYELYTE E] IN SERUM Ordering Provider: ANA,GRETCHEN CBOC S,CA OR PLASMA Report Releas ed Date/Time: Feb 22, 2021 10:13 AM Reporting Lab: [facility] [address] [facility] [address] Performing Lab: [place] [facility] [address] [facility] [address] P4 GLOMERULAR 51 60 02/22 L Specimen Type : PLASMA ST. GLU,BUN,C FILTRATION /2020 Comment: F or eGFR: Race unknown, if multiply result by 1.210 Tests performed on [employer]alez [employer] (405) SN:[id number] MARCELA REIVORY MILLER RATE/1.73 Ordering Pr ovider: GRETCHEN PEREZ S,CA SQ Report Released Date/Time: Feb 22, 2021 10:13 AM M.PREDICTED Reporting L ab: [facility] [VOLUME [address] [facility] [address] RATE/AREA] Performing L ab: [facility] IN SERUM OR [address] [facility] [address] PLASMA BY CREATININE- BASED FORMULA (MDRD) LIVER PROTEIN 8.0 6.0 - 8.5 02/22 Specimen Type: PLASMA ST. PROFILE [MASS/VOLUM /2020 Comment: Fo r eGFR: Race unknown, if multiply result by 1.210 Tests performed on Gonsalez [employer] (405) SN:[id number] [facility] E] IN SERUM Ordering Pr ovider: GRETCHEN PEREZ [facility] OR PLASMA Report Releas ed Date/Time: Feb 22, 2021 10:13 AM Reporting Lab: [facility] [address] [place] [place] [place] [address] Performing Lab: [facility] [address] [facility] [address] LIVER ALBUMIN 4.0 3.2 - 5.0 02/22 Specimen Type: PLASMA ST. PROFILE [MASS/VOLUM /2020 Comment: Fo r eGFR: Race unknown, if multiply result by 1.210 Tests performed on [employer] (405) SN:[id number] [facility] IN [facility]UM Ordering Pr ovider: GRETCHEN PEREZ [facility] OR PLASMA Report Releas ed Date/Time: Feb 22, 2021 10:13 AM Reporting Lab: [facility] [address] [facility] [address] [facility] [facility] [address] [place] [facility] [place] [address] LIVER BILIRUBIN.T 0.6 0.2 - 1.2 02/22 Specimen T ype: PLASMA ST. PROFILE OTAL /2020 Comment: For eG FR: Race unknown, if multiply result by 1.210 Tests performed on Gonsalez Kona DataSearch (405) SN:[id number] [facility] [MASS/VOLUM Ordering Pr ovider: GRETCHEN PEREZ E] IN SERUM Report Rele ased Date/Time: Feb 22, 2021 10:13 AM OR PLASMA Reporting Lab : [facility] [address] [facility] [address] Performing Lab: [facility] [address] [facility] [address] LIVER ALKALINE 75 40 - 150 02/22 Specimen Type: PLASMA ST. PROFILE PHOSPHATASE Comment: Fo r eGFR: Race unknown, if multiply result by 1.210 Tests performed on Gonsalez K[employer] DataSearch (405) SN:[id number] [facility] [ENZYMATIC Ordering Pro vider: GRETCHEN PEREZ ACTIVITY/VO Report Rele ased Date/Time: Feb 22, 2021 10:13 AM LUME] IN Reporting Lab: [facility] OR [address] [place] [facility] [place] [address] PLASMA Performing Lab: [facility] [address] [place] [facility] [place] [address] LIVER ALANINE 16 7 - 52 02/22 Specimen Type: P LASMA ST. PROFILE AMINOTRANSF Comment: Fo r eGFR: Race unknown, if multiply result by 1.210 Tests performed on Gonsalez K[employer] DataSearch (405) SN:[id number] [facility] ERASE Ordering Provid er: GRETCHEN PEREZ [ENZYMATIC Report Relea sed Date/Time: Feb 22, 2021 10:13 AM ACTIVITY/VO Reporting L ab: [facility] LUME] IN [address] [place] [facility] [place] [address] SERUM OR Performing Lab [facility] PLASMA [address] [place] [facility] [place] [place] [address] LIVER ASPARTATE 17 5 - 34 02/22 Specimen Type: PLASMA ST. PROFILE AMINOTRANSF Comment: Fo r eGFR: Race unknown, if multiply result by 1.210 Tests performed on G[employer]alez Personnel Associate (405) SN:[id number] [facility] ERASE Ordering Provid er: GRETCHEN PEREZ [ENZYMATIC Report Relea sed Date/Time: Feb 22, 2021 10:13 AM ACTIVITY/VO Reporting L ab: [facility] LUME] IN [address] [facility] [address] SERUM OR Performing Lab : [facility] PLASMA [address] [place] [facility] [place] [address] LIPOPROTE CHOLESTEROL 361 0 - 199 08/24 H Specimen T ype: PLASMA ST. IN [MASS/VOLUM /2020 Comment: Fo r eGFR: Race unknown, if multiply result by 1.210 Tests performed on G[employer] Personnel Associate (405) SN:[id number] [facility] CHOLESTER E] IN SERUM Ordering Provider: GRETCHEN PEREZ OL FRACT. OR PLASMA Report Rele ased Date/Time: Feb 22, 2021 10:13 AM PANEL Reporting Lab: [facility] [address] [facility] [address] Performing Lab: [facility] [address] [place] [facility] [place] [address] LIPOPROTE TRIGLYCERID 170 0 - 149 08/24 H Specimen T ype: PLASMA ST. IN E Comment: For eG FR: Race unknown, if multiply result by 1.210 Tests performed on Gonsalez K[employer] DataSearch (405) SN:[id number] [facility] CHOLESTER [MASS/VOLUM Ordering Provider: GRETCHEN PEREZ OL FRACT. E] IN SERUM Report Re leased Date/Time: Feb 22, 2021 10:13 AM PANEL OR PLASMA Reporting [facility] [address] [facility] [address] [facility]: [facility] [address] [facility] [address] LIPOPROTE CHOLESTEROL 46 40 08/24 Specimen T ype: PLASMA ST. IN IN HDL /2020 Comment: For eG FR: Race unknown, if multiply result by 1.210 Tests performed on Gonsalez K[employer] DataSearch (405) SN:[id number] [facility] CHOLESTER [MASS/VOLUM Ordering Provider: GRETCHEN PEREZ OL FRACT. E] IN SERUM Report Re leased Date/Time: Feb 22, 2021 10:13 AM PANEL OR PLASMA Reporting Lab : [facility] [address] [facility] [address] Performing Lab: [facility] [address] [facility] [address] LIPOPROTE CHOLESTEROL 281 0 - 129 08/24 H Specimen T ype: PLASMA ST. IN IN LDL /2020 Comment: For eG FR: Race unknown, if multiply result by 1.210 Tests performed on G[employer] Personnel Associate (405) SN:[id number] [facility] CHOLESTER [MASS/VOLUM Ordering Provider: GRETCHEN PEREZ OL FRACT. E] IN SERUM Report Re leased Date/Time: Feb 22, 2021 10:13 AM PANEL OR PLASMA Reporting Lab : [facility] BY [address] [facility] [address] CALCULATION Performing Lab: [facility] [address] [facility] [address] GLYCOHEMO HEMOGLOBIN 6.2 4.0 - 5.6 08/24 H Specimen Type: BLOOD ST. GLOBIN A1C/HEMOGLO /2020 Comment: Te sts performed on [employer] Personnel Associate (405) SN:[id number] [facility] (A1C BIN.TOTAL Ordering Prov ider: GRETCHEN PEREZ ONLY) IN BLOOD BY Report Rele ased Date/Time: Feb 22, 2021 10:13 AM HPLC Reporting Lab: [facility] [address] [facility] [address] Performing Lab: [facility] [address] [facility] [address] VIT D CALCIFEROL 40.8 20 - 50 08/24 Specimen Type : SERUM ST. 25-OH(J (VIT D2) /2020 Comment: Kirsten ts performed on Gonsalez Personnel Associate (405) SN:[id number] [facility] [MASS/VOLUM Ordering Pr ovider: GRETCHEN PEREZ E] IN SERUM Report Rele ased Date/Time: Feb 22, 2021 10:13 AM OR PLASMA Reporting Lab : [facility] [address] [facility] [address] Performing [facility]: [facility] [address] [facility] [address] VITAMIN COBALAMIN 312 200 - 900 08/24 Specimen Typ e: SERUM ST. B-12 ( Comment: Tests performed on G[employer]alez Personnel Associate (405) SN:[id number] [facility] B12) Ordering Provid er: GRETCHEN PEREZ [MASS/VOLUM Report Rele ased Date/Time: Feb 22, 2021 10:13 AM E] IN SERUM Reporting L ab: [place] [facility] OR PLASMA [address] [facility] [address] Performing Lab: [place] [facility] [address] [facility] [address] Encounters Combined list of: 1) Encounters from Department of Veterans Affairs facilities going back up to the last 18 months. 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 Location Location Encounter Encounter Reason Attending ADM ID Stat us Disposition Source Details Type Number For Provider Date Date Visit Outpatient [id number] 09/30 WHIT E Encounter [id number] /2020 [place] [facility] [facility] Out[facility] 36649-9.40 10/19 WHIT E Encounter [id number] /2020 [place] [facility] Outpatient 56579-9.40 11/11 WHIT E Encounter [id number] /2020 [place] [facility] Outpatient 36248-5.40 11/11 WHIT E Encounter [id number] /2020 [place] [facility] Outpatient 85612-9.40 11/11 WHIT E Encounter [id number] /2020 [place] [facility] Outpatient 95974-9.40 12/13 WHIT E Encounter [id number] /2020 [place] [facility] HC PRO 23591-6.40 Diagnos ADELITA, 12/20 W JIMBO PHONE CALL [id number] is: MILTON B /2020 R IVER 11-20 MIN ICD-10- JCT CM [facility] 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
Provide r Comment s: Long-te rm current use of anticoa gulant (SCT 1684176 03) Outpatient 30079-6.40 02/22 WHIT E Encounter [id number] [place] [facility] OFFICE O/P 51862-5.40 Diagnos SÁNCHEZ PEREZ 02/22 ST. 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
Provide r Comment s: Long-te rm current use of anticoa gulant (SCT 4175406 03) Outpatient 03/02 WHIT E Encounter [id number] /2021 [place] [facility] [facility] COMPREHENS 54229-2.40 Diagnos RADHA, 04/12 ST. ELA [id number] is: HLEY A [facility] HEARING 39 ICD-10- RY CBOC TEST CM H90.3 Sensori neural hearing loss, bilater al
with Provide r Comment s: Asymmet rical sensori neural hearing loss (SNOMED CT 6146511 09) Outpatient 04/15 WHIT E Encounter [id number] /2021 [place] [facility] OFFICE O/P 52119-0.40 Diagnos PETTIGLIO, 04/28 ST. EST [id number] is: SAMMY A JOHNSB U MINIMAL 02 ICD-10- RY CBOC PROB CM Z23 Encount er for immuniz ation<b r/>with Provide r Comment s: Encount er for Immuniz ation HC PRO 83894-1.40 Diagnos NICOLA LEONE 04/29 W JIMBO PHONE CALL [id number] is: AN RIVE R 11-20 MIN ICD-10- JCT CM [facility] Z79.01 intermediate (curren t) use of anticoa gulants
wi th Provide r Comment s: Long-te rm current use of anticoa gulant ([facility] [id number] 03) Outpatient [id number] 07/04 WHIT E Encounter [id number] /2022 [facility] Social History Combined list of available smoking, tobacco, and other social history [facility]. 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 An actual copy of the Directive is not included. Date Advance Directive Provider Source 01/15/2019 ADVANCE DIRECTIVE DISCUSSION STEPHANIE HERNANDEZ [facility]
--- OUTSIDE RECORDS SUMMARY | 2022-03-16 11:01 | XMS_ITS | Encounter Summary ---
:1945 Author Organization [facility] Address [address] [place] [address] Support Name Relationship Address Phone FRANCI SALINAS Unavailable [address] [facility] [address] FRANCI SALINAS Unavailable [address] [facility] [place] [address] Insurance Providers: All historical and current Section Date Range: From patient's date of to the date document was created.This section includes the names of all active insurance providers for the patient. Insurance Type of Plan Start of End of Group Member Insurance Policy P atient's Provider Coverage Name Policy Policy Number ID Provider's Gregg's Relationship Coverage Coverage Telephone Name to Policy Number Gregg [facility] MEDIGAP PLAN- Dec 30, PLAND [id number] [phone] WILLIE SALINAS PATIENT LIFE AND PLAN D D [phone] HN ANNUITY MEDICARE MEDICARE PART Dec 30, PART B [id number] WILLIE SALINAS PATIENT (WNR) (M) B 2012 [id number] HN MEDICARE MEDICARE PART May 02, PART A [id number] WILLIE SALINAS PATIENT (WNR) (M) A 2010 [id number] 1 HN MUTUAL OF MEDIGAP Jul 02, PLANN [id number] [phone] WILLIE SALINAS PATIENT [employer] PLAN N 2019 4 0 HN CO Selected Encounter This section includes the information on record at [facility] for the Encounter. Date/Time Encounter Type Encounter Reason Provider Source Description Apr 12, 2021 COMPREHENSIVE AUDIOLOGY ICD-10-CM H90.3 NORRIS GARCIA 02:00 PM HEARING TEST Sensorineural EY A hearing loss, bilateral with Provider Comments: Asymmetrical sensorineural hearing loss (SNOMED CT [id number]) IHE Encounter Template Text not used by VA Assessments - Encounter Diagnoses This section includes the primary and secondary diagnoses documented for the Encounter. Date/Time Primary/Secondary Diagnosis Name Provider Source Diagnosis Apr 12, 2021 PRIMARY Sensorineural WALDKRISHNA,ROMY LIU Y 03:01 PM hearing loss, A [facility] bilateral Apr 12, 2021 PRIMARY Sensorineural ROMY GARCIA Y 03:01 PM hearing loss, A [facility] bilateral Apr 12, 2021 SECONDARY Tinnitus, bilateral WALDKRISHNA,ROMY JONES [facility] 03:01 PM A [facility] Apr 12, 2021 SECONDARY Tinnitus, bilateral WALDKRISHNA,ROMY J[facility]ES [facility] PM A [facility] Plan of Treatment: Future Appointments (+ 6 months) and Future Tests (+/- 45 days) The Plan of Treatment section includes future care activities for the patient from all [place] treatmentfacilities. This section includes future appointments and future orders which are active, pending orscheduled.Future Appointments This section includes appointments that were scheduled to occur 6 months from the date of the Encounter, up to a maximum of 20 appointments. The data comes from all [place] treatment facilities. Appointment Date/Time Appointment Type Appointment Facili ty Name Apr 28, 2021 10:00 AM AMBULATORY - MEDICINE [facility] Apr 28, 2021 10:30 AM AMBULATORY - NONE [facility] Apr 29, 2021 03:15 PM AMBULATORY - MEDICINE [facility] Lab Results: +/- 30 days of the [...] Interpretation Reference Range Comment Apr 28, 2021 [facility] CREATININE WITH eGFR Specimen T ype: PLASMA 09:59 AM [facility] PANEL Comment: For eG FR: Race unknown, if multiply result by 1.210 Tests performed on Stackdriver 405 [id number] Ordering Provid er: MILTON UREÑA Report Released Date/Time: Feb 24, 2021 11:18 AM Reporting [facility] [address] [place] [facility] [place] [place] [address] Performing Lab: [facility] [address] [facility] [address] CREATININE 1.54 H 0.5-1.5 eGFR 44 L >60 Apr 28, 2021 09:59 AM [facility] KELSEY T CBC NO DIFF Specimen Type: BLOOD [facility] No comment enter ed. Ordering Provid er: MILTON UREÑA Report Released Date/Time: Feb 24, 2021 11:18 AM Reporting Lab: [facility] [place] [facility] [address] [facility] [address] Performing Lab: [facility] [place] [facility] [address] [facility] [address] WBC 5.8 4.5-11.0 RBC 4.61 4.23-5.66 HGB 13.9 12.8-17 HEMATOCRIT 43.6 39.2-50.4 MCV 94.6 82-99 MCH 30.2 26.2-32.6 MCHC 31.9 30.8-35.1 PLT 141 140-360 MPV 12.1 9.2-12.4 RDW 15.0 12.0-16.0 Social History: Smoking Status (Most current) and Tobacco Use (All prior to encounter date) This section includes the most current, and the historical, smoking and tobacco-related health factors from the [place] facility where the Encounter took place.Current Smoking Status This section includes the most current smoking, or tobacco-related health factor, from the [place] facility where the Encounter took place. Date/Time Current Smoking Status Comment Facility Feb 22, 2021 10:00 AM VA-TOBACCO FORMER USER [facility] Tobacco Use History This section includes a history of the smoking, or tobacco- related health factors, that were collected on or before the date of the Encounter. The data comes from the [place] facility where the Encounter took place. Date/Time Smoking Status/Tobacco Use Comment [facility] it Feb 22, 2021 10:00 AM VA-TOBACCO QUIT < 1 YEAR S [facility] CB Feb 22, 2021 10:00 AM VA-TOBACCO QUIT 1 TO < 5 S [facility] YRS Mar 04, 2020 01:00 PM [facility] Mar 04, 2020 01:00 PM [facility] Mar 21, 2018 02:43 PM VA-TOBACCO USE 30 YEARS OR [facility] MORE Mar 21, 2018 02:43 PM VA-TOBACCO USE ADVICE 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 Mar 21, 2018 02:43 PM VA-TOBACCO USE MED NO [facility] Mar 21, 2018 02:43 PM VA-TOBACCO USE WI 30 MIN S Yazmin. M[facility] Mar 21, 2018 02:43 PM VA-TOBACCO USER EVERY DAY [facility] Jan 16, 2018 02:[address] [facility] Jan 16, 2018 02:53 PM V1-PT NOT INTERESTED IN ST . [facility] QUIT TOBACCO USE Apr 17, 2016 11:[address] [facility] smokes about half a pack a day Apr 17, 2016 11:05 AM V1-PT NOT INTERESTED IN [facility] . [facility] QUIT TOBACCO USE Apr 22, 2015 01:[address] [facility] smokes about half a pack a day Apr 22, 2015 01:58 PM V1-PT NOT INTERESTED IN [facility] QUIT TOBACCO USE Advance Directives: All historical and current Section Date Range: From patient's date of to the date document was created. This section includes ALL of a patient's completed or amended [place] Advance and Rescinded Directives. The entries below indicate that a directive exists for the patient, but an actual copy is not included with this document. The data comes from all [place] facilities. Date Advance Directives Provider Source Jan 15, 2019 ADVANCE DIRECTIVE DISCUSSION STEPHANIE HERNANDEZ [facility] Encounter Notes: All associated encounter notes This section contains the clinical notes associated to the Encounter. Date/Time Encounter Note(s) Provider Source Apr 12, 2021 02:52 PM AUDIOLOGY NOTE: ROMY GARCIA [facility] LOCAL TITLE: Audiology Note STANDARD TITLE: AUDIOLOGY NOTE DATE OF NOTE: APR 12, 2021@14:52 ENTRY DATE: APR 12, 2021@14:52:46 AUTHOR: ROMY GARCIA EXP COSIGNER: URGENCY: STATUS: COMPLETED AUDIOLOGIC EVALUATION: REFERRED BY: Self/PCP : 1945 AGE: 76 REASON FOR EVALUATION & GENE RAL MEDICAL HISTORY: [place] is new to the Audiology clinic. His PCP recommended a hearing evaluation to become established with the clinic. 's primary complaint is constant tinnitus AU. He said his notices communication breakdowns, especially if it is not face to face communication. He denied any sudden otologic changes. He has never worn hearing aids. TINNITUS: Constant tinnitus AU, but a little worse on the left side. He said his tinnitus started in the 1970's and it has been a progressive problem. He described his tinnitus as a ringing sound. Ove rall it is not bothersome to him. DIZZINESS/VERTIGO: Denied FAMILY HISTORY OF HEARING LOSS: Denied OTOLOGIC HISTORY: [place] denied ear pain, aural fullness, otorrhea and any sudden otologic changes. LAST HEARING EVALUATION: No previous tests avail able for comparison CURRENT HEARING AIDS: None IMPRESSIONS: OTOSCOPY: Non-occluding cerumen and clear can al AD. TMs were normal appearing. TYMPANOMETRY: DNT ACOUSTIC REFLEXES: DNT RELIABILITY: Good SYMMETRY: Asymmetrical; left ear worse DEGREE AND TYPE OF HEARING LOSS: RIGHT: Mild to moderate sensorineural hearing lo ss LEFT: Mild to moderately severe sensorineural he aring loss WORD DISCRIMINATION: JOHN W-22/25 RIGHT - 96% at 75 dB HL w/masking SRT: 30 dB HL LEFT - 92% at 75 dB HL w/masking SRT: 36 dB HL AUDIOGRAM Audiogram is available in this patient's electro brandy medical record. To view the actual audiogram , click the Tools menu, and choose Rehab Medicine then Audiogram Display EDUCATION: Patient was counseled on the test results, benef its and limitations of amplification, and strategies to improve communi cation. RECOMMENDATIONS: He is a hearing aid candidate A U based on audiometric data; however, he is not interested in amplification a t this time. Recommended a hearing test in 2-3 years to monitor, or sooner if any sudden otologic changes are noticed. He was in agreement with this plan. PLAN: -Hearing evaluation in 2-3 years or sooner if a sudden change is noted -f/u per request PROCEDURES COMPLETED: Otoscopy Air Conduction Threshold Testing Bone Conduction Threshold Testing Speech Tamping Machine Operator Road Forms Threshold Testing Word Recognition Testing /osiris/ Vincent SANDOVAL Nurse Recruiter Signed: 04/12/2021 15:01
--- OUTSIDE RECORDS SUMMARY | 2022-03-16 11:01 | XMS_ITS | Encounter Summary ---
:1945 Author Organization [facility] Address [address] [place] [address] Care Team Providers Name Role Phone Jennifer Gomez SATELLITE INSTRUCTION FACILITATOR Primary Care Provider Encounter Details Date Type Department Care Team Description 02/07/2020 Lab Requisition [facility] Outr Resulting Lab, Pathology & Laboratory Provider [facility] [address] [place] [address] Social History Tobacco Use Types Packs/Day Years Used Date Never Assessed Sex Assigned at Date Recorded Not on file documented as of this encounter Plan of Treatment Not on filedocumented as of this encounter Procedures Procedure Name Priority Date/Time Associated Comments Diagnosis DO NOT ORDER Today 02/07/2020 7:59 EDT Results for this STANDALONE - BROAD procedure are in COVID TEST the results section. COVID-19 TESTING Routine 02/07/2020 7:59 EDT Resu lts for this procedure are i n the results section. documented in this encounter Results DO NOT ORDER STANDALONE - BROAD COVID TEST (02/07/2020 7:59 EDT) COVID-19 rt-PCR NEGATIVE Negative [facility] Result Comment: LABORATORY 2019-novel Coronavirus (2019 -nCoV) not detected by the qRT-PCR assay. Consider testing for other respiratory viruses or re-collecting for 2019-nCoV testing. Note: Optimum timing for peak viral levels du ring infections caused by 20 -nCoV have not been determined. Collection of multiple specimens from the same patient may be necessary to detect the virus. Limitations Positive results are indicat shawn of active infection with SARS-CoV-2 but do not rule out bacterial infection or co-infection with other viruses. The agent detected may not be the definite cause of diseas e. In addition, detection of viral RNA may not indicate the presence of infectious virus or that SARS-CoV-2 is the causative agent for clinical symptoms. Negative results do not prec lude SARS-CoV-2 infection and should not be used as the sole basis for patient management decisions. Negative results must be combined with clinical observations, patient his tory, and epidemiological in formation. False negative results may also occur if amplification inhibitors are present in the specimen or if inadequate numbers of organisms are present in the specimen. Op timum specimen types and quinn ing for peak viral levels during infections caused by SARS-CoV-2 have not been fully determined. Collection of multiple specimens (types and time points) from the same patient may be necessary to detect the virus. The test was validated for u se with upper respiratory specimens obtained via nasopharyngeal or oropharyngeal swabs in VTM, UTM, M4, M5, M6, saline, and MTM media. The performance of this test has not be en established for other spe cimens. Specimens collected using other FDA recommended Specimen Collection Materials listed in the FDA COVID-19 [employer] communication (September 25, 2019) are pr ocessed with the caveat that they were not all validated for use with this test and the result must be interpreted in this context. Furthermore, a false negative results may occur if a specimen is improperly collected, transported or handled. If the virus mutates in the RT-PCR target region, SARS-CoV-2 may not be detected or may be detected less predictably. Inhibitors or other types of interference may produce a false negative result. An interference study evaluating the effect of common cold medications was not performed. This test is not FDA-cleared but its performance characteristics were established by our CLIA-certified, CAP-accredited, high complexity laboratory in accordance with CLIA regulations, College of [employer] an Pathologists (CAP) guidel kerri (Sep 18, 2019), and FDA guidance (Aug 30, 2019). This test is only for use un adrian the Food and Drug Administration's Emergency Use Authorization. Specimen Swab - Entire nasopharynx (body structur e) Performing Organization Address City/State/ZIP Code Phon e Number [facility] [place], [place] COVID-19 TESTING (02/07/2020 7:59 EDT) COVID-19 rt-PCR NEGATIVE Negative [facility] Result Comment: LABORATORY 2019-novel Coronavirus (2019 -nCoV) not detected by the qRT-PCR assay. Consider testing for other respiratory viruses or re-collecting for 2019-nCoV testing. Note: Optimum timing for peak viral levels du ring infections caused by 20 19-nCoV have not been determined. Collection of multiple specimens from the same patient may be necessary to detect the virus. Limitations Positive results are indicat shawn of active infection with SARS-CoV-2 but do not rule out bacterial infection or co-infection with other viruses. The agent detected may not be the definite cause of diseas e. In addition, detection of viral RNA may not indicate the presence of infectious virus or that SARS-CoV-2 is the causative agent for clinical symptoms. Negative results do not prec lude SARS-CoV-2 infection and should not be used as the sole basis for patient management decisions. Negative results must be combined with clinical observations, patient his tory, and epidemiological in formation. False negative results may also occur if amplification inhibitors are present in the specimen or if inadequate numbers of organisms are present in the specimen. Op timum specimen types and quinn ing for peak viral levels during infections caused by SARS-CoV-2 have not been fully determined. Collection of multiple specimens (types and time points) from the same patient may be necessary to detect the virus. The test was validated for u se with upper respiratory specimens obtained via nasopharyngeal or oropharyngeal swabs in VTM, UTM, M4, M5, M6, saline, and MTM media. The performance of this test has not be en established for other spe cimens. Specimens collected using other FDA recommended Specimen Collection Materials listed in the FDA COVID-19 [employer] communication (September 25, 2019) are pr ocessed with the caveat that they were not all validated for use with this test and the result must be interpreted in this context. Furthermore, a false negative results may occur if a specimen is improperly collected, transported or handled. If the virus mutates in the RT-PCR target region, SARS-CoV-2 may not be detected or may be detected less predictably. Inhibitors or other types of interference may produce a false negative result. An interference study evaluating the effect of common cold medications was not performed. This test is not FDA-cleared but its performance characteristics were established by our CLIA-certified, CAP-accredited, high complexity laboratory in accordance with CLIA regulations, College of [employer] an Pathologists (CAP) guidel kerri (Sep 18, 2019), and FDA guidance (Aug 30, 2019). This test is only for use un adrian the Food and Drug Administration's Emergency Use Authorization. Performing Lab [facility] LABORATORY SERVICES Specimen Swab Performing Organization Address City/State/ZIP Code Phon e Number [facility] [address] [place] [address] SERVICES [facility] [place], [place] documented in this encounter Visit Diagnoses Not on filedocumented in this encounter Care Teams Grain Commodity Manager Relationship Specialty Start Date End Date Jennifer Gomez NP PCP - General 05/10/15 [facility] [address] [place], [place] [address] documented as of this encounter
--- OUTSIDE RECORDS SUMMARY | 2022-03-16 11:02 | XMS_ITS | Encounter Summary ---
:1945 Author Organization [facility] Address [facility] [address] [place] [address] Care Team Providers Name Role Phone France Lam MD Primary Care Provider Encounter Details Date Type Department Care Team Description 12/30/2019 TH Visit Cardiology at [facility] Faustino Garduno Claudication from peripheral vascular disease, left ; (TeleHealth) [facility] MD Jaquan Hyperlipidemia, unspecified hyperlipidem ia type; Drive [facility] Acute ST elevation myocardia l infarction (STEMI) of inferior wall; [place], [place] [facility] Acute systolic CHF (congestive heart reid lure), NYHA class 3, MILVIA/AHA stage C; [id number] [place], [place] Intracranial hemorrhage; [phone] [id number] Atrial fibrillation, unspecified type Social History Tobacco Use Types Packs/Day Years Used Date Current Every Day Smoker Cigars 0.5 Sex Assigned at Date Recorded Not on file documented as of this encounter Progress Notes Faustino Garduno MD - 12/30/2019 3:40 PM EDT CARDIOLOGY TELE VISIT NOTE Jovany Hi 12/30/19 The patient consented to this being a virtual visit. HPI: Jovany Hi is a 74 y.o. year old male with a past medical history significant for CAD s/p inferior STEMI [s/p MACARIO to RCA x3, residual LCx disease - non-culprit artery; s/p lytics] with complicated clinical course 11/28-12/04/19 (RV failure manifesting as cardiogenic shock, left sided diplopia with ICH, bilateral PE; paroxysmal atrial fibrillation [[id number]: 5]; PAD; HLD; HTN; smoking and PFO,who presents for post-discharge cardiovascular follow-up. Since discharge, he has been feeling well.He has no angina or heart failure equivalent symptomatology. He still has residual blurry vision with small print, and was recently seen in follow-up by neurosurgery. No new neurological symptoms. He [facility] tomorrow 12/31/19. Brief ROS: Activity level: Good No new orthopnea, PND, LE edema. No lightheadedness, dizziness, syncope/pre- syncope. No new CP. Patient Active Problem List Diagnosis Date Noted ??? Atrial fibrillation, with cardioembolic stroke, on amiodarone 12/08/2019 ??? Acute systolic CHF (congestive heart failure), NYHA class 3, MILVIA/AHA stage C 12/03/2019 ??? Intracranial hemorrhage 11/30/2019 ??? Acute ST elevation myocardial infarction (STEMI) of inferior wall 11/29/2019 ??? Hyperlipidemia 06/12/2013 ??? Tobacco abuse 06/12/2013 ??? Alcohol abuse 06/12/2013 ??? Hearing loss of both ears 06/12/2013 ??? Tinnitus of both ears 06/12/2013 ??? Claudication from peripheral vascular disease, left 05/13/2013 Medications: Current Outpatient Medications Medication Sig Dispense Refill ??? AMIOdarone (Cordarone; Pacerone) 200 mg Tablet Take 1 tablet by mouth daily. 30 tablet 2 ??? clopidogreL (Plavix) 75 mg Tablet Take 1 tablet by mouth daily. 30 tablet 0 ??? furosemide (Lasix) 20 mg Tablet Take 1 tablet by mouth every other day. 15 tablet 0 ??? lisinopriL (Prinivil;Zestril) 2.5 mg Tablet Take 1 tablet by mouth daily. 30 tablet 0 ??? metoprolol succinate XL (Toprol-XL) 25 mg Tablet Sustained Release 24 hr Take 0.5 tablets by mouth daily. 30 tablet 0 ??? nicotine (NICODERM CQ) 14 mg/24 hr Patch 24 hr Change 1 patch on the skin daily as needed. 28 patch 0 ??? nitroGLYcerin (Nitrostat) 0.4 mg Tablet, Sublingual Place 1 tablet under the tongue every 5 minutes as needed for Chest pain. 30 tablet 0 ??? apixaban (Eliquis) 5 mg Tablet Take 1 tablet by mouth 2 times daily. 60 tablet 0 ??? cholecalciferol, Vitamin D3, 50 mcg (2,000 unit) Tablet Take 2,000 Units by mouth daily. Medications were reviewed with patient. Objective Data: VS at home: None reported Labs: Lab Results Component Value Date WBC 9.9 (H) 12/08/2019 HGB 13.0 (L) 12/08/2019 HCT 40.5 12/08/2019 MCV 89.8 12/08/2019 PLATELET 214 12/08/2019 No results for input(s): NA, K, CL, CO2, BUN, CREATININE, GLUCOSE in the last 168 hours. Lab Results Component Value Date INR 1.2 11/29/2019 Lab Results Component Value Date CHLPL 195 11/30/2019 HDL 32 11/30/2019 CHOLHDL 6.1 11/30/2019 TRIG 93 11/30/2019 LDLCHOL 144 11/30/2019 LDLDIRECT 156 11/30/2019 Cath 11/29/19 Findings: Discrete 90% stenosis in the prox-to-mid RCA. Severe diffuse disease in the distal vessel. Discrete LCX stenosis in a non-culprit artery. S/P DESx3 in the [id number]-[id number] RCA. Aspiration thrombectomy performed, and integrellin bolus x2+ infusion. Nicardipine given during case due to intermittent sluggish flow. TTE 11/30/19 1. The left ventricular chamber size is normal. Left ventricular wall thickness is normal. The quantitative left ventricular ejection fraction by biplane Orourke's method is 45%. There are left ventricular segmental wall motion abnormalities present, as shown in the diagram below. Doppler assessment is consistent with normal left sided filling pressure. 2. The right ventricle is normal in size. Right ventricular global systolic function is moderately reduced. Pulmonary artery hypertension could not be assessed due to inadequate tricuspid regurgitation jet. 3. The left atrium is moderately dilated. The right atrium is normal in size. 4. There is no hemodynamically significant valve disease. 5. See remainder of report for additional findings. 6. There is no prior study available for comparison. Cardiac CT 12/04/19 IMPRESSION Watchman measurements as above. Findings indicate a patent foramen ovale. Bilateral segmental/subsegmental pulmonary arterial emboli are incompletely visualized on this exam. Small bilateral pleural effusions. Assessment: Jovany Hi is a 74 y.o. year old male with a past medical history significant for CAD s/p inferior STEMI [s/p MACARIO to RCA x3, residual LCx disease - non- culprit artery; s/p lytics] with complicated clinical course 11/28-12/04/19 (RV failure manifesting as cardiogenic shock, left sided diplopia with ICH, bilateral PE; paroxysmal atrial fibrillation [[id number]: 5]; PAD; HLD; HTN; smoking and PFO, who presents for post-discharge cardiovascular follow-up. CV issues are currently stable. Plan 1. CAD - CCS Class 0. Recovering well. He has completed 1 month of triple therapy. He may stop his aspirin, and resume clopidogrel and apixaban. Starting cardiac rehab. He wishes to pursue PCSK9 referral via the [place]. 2. Afib - CHADS2-vasc 5, presently on anticoagulation and amiodarone. He is being concurrently evaluated by my partner Dr. Sanchez for consideration of left atrial appendage closure in lieu of his ICH. 3. Bilateral PE - Case discussed with Dr. Sanchez above; likely provoked in lieu of his prolonged hospitalization. Plan for at least 6 months of oral A/C. 4. PAD - Continue optimal medical therapy for now. F/U 6 months Faustino Garduno MD Time spent: [id number] 0-5min [id number] 6-10min [id number] 11-15min 3120AXC3 16-20min XXXX [id number] 21-30min 2452LAT0 31-40min [id number] 40+ min documented in this encounter Plan of Treatment Not on filedocumented as of this encounter Visit Diagnoses Diagnosis Claudication from peripheral vascular di sease, left Peripheral vascular disease, unspecified Hyperlipidemia, unspecified hyperlipidem ia type Acute ST elevation myocardial infarction (STEMI) of inferior wall Acute systolic CHF (congestive heart reid lure), NYHA class 3, MILVIA/AHA stage C Acute systolic heart failure Intracranial hemorrhage Unspecified intracranial hemorrhage Atrial fibrillation, unspecified type documented in this encounter Care Teams Fundraising Sale Representative Relationship Specialty Start Date End Date France Lam MD PCP - General 05/02/13 02/04/20 [address] [place] [address] documented as of this encounter
--- OUTSIDE RECORDS SUMMARY | 2022-03-16 11:02 | XMS_ITS | Encounter Summary ---
:1945 Author Organization [facility] Address [facility] [place] [address] Care Team Providers Name Role Phone France Lam MD Primary Care Provider Encounter Details Date Type Department Care Team Description 12/22/2019 Telephone Cardiology Riki Stevens, [facility] [place] [address] [facility] [phone] GENERAL INTERNAL MEDICINE [place] [id number] (Wo rk) Social History Tobacco Use Types Packs/Day Years Used Date Current Every Day Smoker Cigars 0.5 Sex Assigned at Date Recorded Not on file documented as of this encounter Miscellaneous Notes Telephone Encounter - Riki Stevens MD - 12/22/2019 12:56 PM EDT Telephone call to patient after neurosurgery MA reported pt ran out of amiodarone today. Pt reports he was able to connect with pharmacy today who provided additional 8 tablets of amiodarone that had been prescribed but not given to him with initial fill. This is enough to last exactly until his cardio logy follow-up appointment. In order to avoid any lapse in his Rx in case of rescheduling, etc., sent additional 30 days of amiodarone 200mg daily with 2 refills to his pharmacy. Riki Stevens MD PGY-3, Internal Medicine documented in this encounter Plan of Treatment Not on filedocumented as of this encounter Visit Diagnoses Not on filedocumented in this encounter Care Teams Broaching Machine Repairer Relationship Specialty Start Date End Date France Lam MD PCP - General 05/02/13 02/04/20 [address] [place] [address] documented as of this encounter
--- OUTSIDE RECORDS SUMMARY | 2022-03-16 11:02 | XMS_ITS | Encounter Summary ---
:1945 Author Organization [facility] [place] [address] Care Team Providers Name Role Phone Jovany Lott MD Primary Care Provider Encounter Details Date Type Department Care Team Description 11/10/2020 Telephone Cardiology at [facility] [place] [address] Social History Tobacco Use Types Packs/Day Years Used Date Former Smoker Cigars 0.5 Quit: 11/29/19 20 Smokeless Tobacco: Former User Sex Assigned at Date Recorded Not on file documented as of this encounter Miscellaneous Notes Telephone Encounter - Wilver Davey - 11/10/2020 3:11 PM EDT Patient called to cancel future appts for Watchman w/u saying he thought about it and does not want to proceed at this time. documented in this encounter Plan of Treatment Not on filedocumented as of this encounter Visit Diagnoses Not on filedocumented in this encounter Care Teams Dog Boarder Relationship Specialty Start Date End Date Jovany Lott MD PCP - General Family Medicine 02/05/20 [place] [id number] documented as of this encounter
--- OUTSIDE RECORDS SUMMARY | 2022-03-16 11:02 | XMS_ITS | Encounter Summary ---
:1945 Author Organization [facility] Address [address] [place] [address] Care Team Providers Name Role Phone Jennifer Gomez ASSEMBLER BILLIARD TABLE Primary Care Provider Encounter Details Date Type Department Care Team Description 03/19/2019 Results Only [facility] Angel Luis Lott MD [phone] [place], [place] [id number] (Wo rk) Social History Tobacco Use Types Packs/Day Years Used Date Never Assessed Sex Assigned at Date Recorded Not on file documented as of this encounter Plan of Treatment Not on filedocumented as of this encounter Procedures Procedure Name Priority Date/Time Associated Diagnosis Comme nts SURGICAL PATHOLOGY Routine 03/19/2019 16:47 Resul ts for this EDT procedure are i n the results section. documented in this encounter Results SURGICAL PATHOLOGY (03/19/2019 16:47 EDT) Pathology SURGICAL PATHOLOGY REPORT [facility] Report: Reports generated via electronic interface conta in original data; [facility] however they are lacking the format of the original re port. SERVICES Caution should be taken when reading/interpreting unfo rmatted reports. Name: ? ANGEL LUIS HI ? Accession #: ? [id number] ? : ? 1945 (Age: 8 3) ??M ? Collect Date: ? 03/19/2019 ? Location: ? [facility] ? Receive Date: ? 03/20/20 19 ? Provider: ANGEL LUIS LOTT MD Copy to: ? Final Pathologic Diagnosis: SKIN OF THIGH, RIGHT, PUNCH BIOPSY: - Superficial perivascular and interstitial dermatitis with erythrocyte extravasation. See microscopic and comment. ?? Comment: The findings are those of a superficial perivascular dermatitis with erythrocyte extravasation. A drug-related eruption is favore d. Other considerations could include the annular variant of a pigment ed purpuric dermatitis, although fully developed features are not noted within the current ma terial. There is no evidence of vasculitis. This case was shown in i ntradepartmental consultation conference. ??(Dr. Connolly)/jadiel Microscopic Description: Sections consist of a punch biopsy of skin. Ther e is compacted orthokeratosis with somewhat diffuse parakeratosis and focal entrappe d serum. The epidermis shows slight acanthosis with rare dyskeratotic cells. Well developed spongiosis is not noted. Within the dermis is a superficial , predominantly perivascular, lymphomononuclear infiltrate. The lymphomononuclear ce lls are small with a spectrum of forms. There is erythrocyte extravasation. There is no evidence of vasculitis. PAS-D stain is negative for fungal organis ms. Deeper levels have been examined. (Dr. Connolly)/jadiel Document reviewed and electronically signed by: ROSA CONNOLLY MD Report ??Date: 03/24/2019 13:52 By the signature above, the attending physician certif ies that he/she has personally conducted a gross and/or microscopic examin ation of the described specimens and rendered or confirmed the above diagnosi s. Specimen(s) Received: 5 mm punch of margin of lesion R thigh Clinical History: Annular rash on legs, recently started statin, no resp onse to anti fungal Gross Description: ? Received in formalin labelled with proper patient identification (initials M, J) and RT thigh is a ce ntrally crimped 0.5 cm marr circular skin excised to a depth of 0.5 cm. Bisected and entirely submitted in 1. ESTEFANY Brown (ASCP) 03/20/2019 5:33 PM End of Report Specimen Performing Organization Address City/State/ZIP Code Phon e Number [facility] [address] [place] [address] SERVICES documented in this encounter Visit Diagnoses Not on filedocumented in this encounter Care Teams Hr Business Partner Consultant Relationship Specialty Start Date End Date Jennifer Gomez NP PCP - General 05/10/15 [facility] [address] [place], [place] [id number] documented as of this encounter
--- OUTSIDE RECORDS SUMMARY | 2022-03-16 11:02 | XMS_ITS | Encounter Summary ---
:1945 Author Organization [facility] [place] [address] Care Team Providers Name Role Phone France Lam MD Primary Care Provider Reason for Visit Reason Onset Date Comments TeleHealth 12/22/2019 Appt 12/23/19 Encounter Details Date Type Department Care Team Description 12/22/2019 Telephone Neurosurgery at [facility] [place] Alfreda Salas TeleHealth (Appt [facility] Devin Sebastian, FILLER PICKER 12/23/19) [place] [address] [place] [address] [place] [address] Social History Tobacco Use Types Packs/Day Years Used Date Current Every Day Smoker Cigars 0.5 Sex Assigned at Date Recorded Not on file documented as of this encounter Miscellaneous Notes Telephone Encounter - Elza Hinds CMA - 12/22/2019 9:51 AM EDT Spoke with patient to review medications and allergies prior to upcoming tele- appointment scheduledwith Neurosurgery provider. documented in this encounter Plan of Treatment Not on filedocumented as of this encounter Visit Diagnoses Not on filedocumented in this encounter Care Teams Inspector Plating Relationship Specialty Start Date End Date France Lam MD PCP - General 05/02/13 02/04/20 [address] [place] [address] documented as of this encounter
--- OUTSIDE RECORDS SUMMARY | 2022-03-16 11:02 | XMS_ITS | Encounter Summary ---
:1945 Author Organization [facility] Address [address] [place] [address] Care Team Providers Name Role Phone Jennifer Gomez METAL BONDING HELPER Primary Care Provider Encounter Details Date Type Department Care Team Description 03/19/2019 Hospital Encounter [facility]- Sylvia Unknown, Provider, [facility] 0 [facility] [phone] [place] [address] (Work) [phone] Social History Tobacco Use Types Packs/Day Years Used Date Never Assessed Sex Assigned at Date Recorded Not on file documented as of this encounter Discharge Disposition Disposition Code Departure Means Destination Home or Self Assisted documented in this encounter Plan of Treatment Not on filedocumented as of this encounter Visit Diagnoses Not on filedocumented in this encounter Care Teams Migratory Farm Hand Relationship Specialty Start Date End Date Jennifer Gomez, METAL BONDING HELPER PCP - General 05/10/15 [facility] [address] [place], [place] [address] documented as of this encounter
--- OUTSIDE RECORDS SUMMARY | 2022-03-16 11:02 | XMS_ITS | Encounter Summary ---
:1945 Author Organization [facility] Address [address] [place] [address] Care Team Providers Name Role Phone Jennifer Gomez ORIENTAL MEDICINE PRACTITIONER Primary Care Provider Encounter Details Date Type Department Care Team Description 12/22/2019 Lab Requisition [facility] Outr Resulting Lab, Pathology & Laboratory Provider [facility] [address] [place], [place] [id number] Social History Tobacco Use Types Packs/Day Years Used Date Never Assessed Sex Assigned at Date Recorded Not on file documented as of this encounter Plan of Treatment Not on filedocumented as of this encounter Procedures Procedure Name Priority Date/Time Associated Diagnosis Comme nts COVID-19 TEST [facility] Today 12/22/2019 10:38 LAB PCR EDT COVID-19 TESTING Routine 12/22/2019 10:38 Results for this EDT procedure are i n the results section. documented in this encounter Results COVID-19 TEST [facility] LAB PCR (12/22/2019 10:38 EDT) Specimen Swab - Entire nasopharynx (body structur e) Performing Organization Address City/State/ZIP Code Phon e Number [facility] [address] [place] [address] SERVICES COVID-19 TESTING (12/22/2019 10:38 EDT) COVID-19 rt-PCR Negative Negative [facility] Result Comment: [facility]ENTER [facility]ORY Negative results do not prec lude 2019-nCoV infection and should not be used as the sole basis for treatment or other patient management decisions. Negative results must be combined with clinical observa SERVICES tions, patient history, and epidemiological informatio n. This test was developed and its performance characteristics determined by [facility]. It has not been cleared or approved by the US Food and Drug Administration. FDA does not require this test to go through premarket FDA review. This t est is used for clinical purposes. It should not be regarded as investigational or for research. This laboratory is certified under the Clinical Laboratory Improvement Amendm ents (CLIA) as qualified to perform high complexity clinical laboratory testing. This test is based on the CD C COVID-19 Emergency Use Authorization (EUA) assay, with minor modification as defined by the FDA Performed on the [employer] 7500 Fast. Performing Lab AB [address]500 [facility] Lab [facility] SERVICES Specimen Swab Performing Organization Address City/State/ZIP Code Phon e Number [facility] [address] [place] [address] SERVICES documented in this encounter Visit Diagnoses Not on filedocumented in this encounter Care Teams General Worker Relationship Specialty Start Date End Date Jennifer Gomez NP PCP - General 05/10/15 [facility] [address] [place], [place] [id number] documented as of this encounter
--- OUTSIDE RECORDS SUMMARY | 2022-03-16 11:02 | XMS_ITS | Encounter Summary ---
:1945 Author Organization [facility] Address [address] [place] [address] Care Team Providers Name Role Phone Unavailable Primary Care Provider Unavailable Encounter Details Date Type Department Care Team Description 09/02/2003 Results Only [facility] - Otis Patel MD conversion [address] [facility] [address] [place] [address] [place] [address] (Wo rk) Social History Tobacco Use Types Packs/Day Years Used Date Never Assessed Sex Assigned at Date Recorded Not on file documented as of this encounter Plan of Treatment Not on filedocumented as of this encounter Procedures Procedure Name Priority Date/Time Associated Diagnosis Comme nts SURGICAL PATHOLOGY Routine 09/02/2003 0:00 EST Re sults for this procedure are i n the results section. documented in this encounter Results SURGICAL PATHOLOGY (09/02/2003 0:00 EST) Pathology Report: SURGICAL PATHOLOGY REPORT [facility] Reports generated via electronic interface contain lupe ginal data; LAB however they are lacking the format of the original re port. Caution should be taken when reading/interpreting unfo rmatted reports. Name: ? ANGEL LUIS SALINAS ? Accession #: ? [id number] ? : ? 1945 (Age: 58) ??M ? Collect Date: ? 09/02/2003 ? Location: ? [facility] ? Receive Date: ? 004 ? Provider: OTIS MOSS MD Copy to: ? Final Pathologic Diagnosis: ? Skin of back, low, punch biopsy: 1. ?Melanocytic nevus, compound typ e, with unusual architectural features and moderate-severe cytologic atypia. ? ?See microscopic and comment. ? - Nevus extends to edge of biopsy specimen. Comment: ? The biopsy consists o f an eccentric compound melanocytic proliferation that is of relatively low cellula r density. ??Melanocytes have architectural disorder and a moderate to severe degree of cytologic atypia. ? ?Given the degree of atypia, and extension of the lesion to the edge of the biopsy specimen, complete conservative excision of the lesion is recommended. ?? (Dr. Mascorro)/[facility] Microscopic Description: ? The epidermis is hype rplastic with elongate and anastomosing rete ridges. There is a compound prolifer ation of melanocytes with both epidermal and dermal components. ??The junctional melanocytes are arranged in nests and as individual cells. ??The nests predominate but vary to moderate degree in size, shape, and spacing. ??The nests are located between and the sides of rete ridges, in addition to at the tips of the ridges. ??Nests b ridge rete ridges. ??Focally, individual melanocytes are prominent and unevenly spaced but show no confluent growth or well-developed upward migration. ??The melanocytes are enlarged and have ill-defined cytoplasm containing melanin pigment. ??The nuclei show a moderate degree of size and shape variation with occas ional large, irregular forms. ??The dermal componen t consists of nests and cords of similar melanocytes that show die repairer forging maturation with descent. ??There is papillary dermal fibroplasia. ??(Dr. Mascorro)/[facility] Document reviewed and electronically signed by: Mai Mascorro MD Report ??Date: 09/04/2003 16:48 By the signature above, the attending physician certif ies that he/she has personally conducted a gross and/or microscopic examin ation of the described specimens and rendered or confirmed the above diagnosi s. Specimen(s) Received: ? Atypical nevus ??low back Clinical History: ? Excisional bx less than 1 cm back Gross Description: ? Received in formalin labelled [place] and back ??mole is a punch biopsy of skin measuring 0.4 cm in diameter and excised to a depth of 0.2 cm. ??The cutaneous surface is marr-white with a central bl ack macule. ??The specimen is bisected and entirely submitted in one cassette. ??(Dr Stephany Amador)/[facility] End of Report Specimen Performing Organization Address City/State/ZIP Code Phon e Number [facility] [address] [place] [address] SERVICES [facility] [address] [place] [address] documented in this encounter Visit Diagnoses Not on filedocumented in this encounter
--- OUTSIDE RECORDS SUMMARY | 2022-03-16 11:02 | XMS_ITS | Encounter Summary ---
:1945 Author Organization [facility] Address [address] [place] [address] Care Team Providers Name Role Phone Jovany Lott MD Primary Care Provider Encounter Details Date Type Department Care Team Description 03/10/2022 Ancillary Procedure Radiology Library at Jovany Lott MD [facility] [address] [facility] [phone] [place] [address] [phone] Social History Tobacco Use Types Packs/Day Years Used Date Former Smoker Cigars 0.5 Quit: 11/29/19 20 Smokeless Tobacco: Former User Sex Assigned at Date Recorded Not on file documented as of this encounter Plan of Treatment Not on filedocumented as of this encounter Procedures Procedure Name Priority Date/Time Associated Comments Diagnosis FILM LIBRARY STORAGE Routine 03/10/2022 12:00 AM Results for this ONLY ULTRASOUND EDT procedure ar e in STUDY the results section. documented in this encounter Results Film Library- Storage Only Ultrasound Study (03/10/2022 12:00 AM EDT) Specimen (Source) Anatomical Location Collection Method / Collectio n Time Received Time / Laterality Volume Narrative JADE - 03/11/2022 2:40 AM EDT This exam is auto-finalizing. It's purpo se is for storage only. Jovany Lott MD IMG FILM LIBRARY ORDERABLES Performing Organization Address City/State/ZIP Code Phon e Number [place], [place] documented in this encounter Visit Diagnoses Not on filedocumented in this encounter Care Teams Aircraft Instrument Mechanic Relationship Specialty Start Date End Date Jovany Lott MD PCP - General Family Medicine 02/05/20 [address] [place] [address] documented as of this encounter
--- OUTSIDE RECORDS SUMMARY | 2022-03-16 11:02 | XMS_ITS | Encounter Summary ---
:1945 [place] [address] Care Team Providers Name Role Phone France Lam MD Primary Care Provider Encounter Details Date Type Department Care Team Description 12/08/2019 Orders Only Neurosurgery at [facility] [place] Natalia Delong, Intracranial [facility] [place] [address] Social History Tobacco Use Types Packs/Day Years Used Date Current Every Day Smoker Cigars 0.5 Sex Assigned at Date Recorded Not on file documented as of this encounter Plan of Treatment Not on filedocumented as of this encounter Visit Diagnoses Diagnosis Intracranial hemorrhage Unspecified intracranial hemorrhage documented in this encounter Care Teams Photography Colorist Relationship Specialty Start Date End Date France Lam MD PCP - General 05/02/13 02/04/20 [address] [place] [address] documented as of this encounter
--- OUTSIDE RECORDS SUMMARY | 2022-03-16 11:02 | XMS_ITS | Encounter Summary ---
:1945 Author Organization [facility] [place] [address] Care Team Providers Name Role Phone France Lam MD Primary Care Provider Reason for Visit Reason Onset Date Comments TeleHealth 01/12/2020 Encounter Details Date Type Department Care Team Description 01/12/2020 Telephone Neurosurgery at [facility] Alfreda Salas, TeleHealth [facility] [place] [address] [facility] [phone] [place], [place] [address] (Wo rk) Social History Tobacco Use Types Packs/Day Years Used Date Current Every Day Smoker Cigars 0.5 Sex Assigned at Date Recorded Not on file documented as of this encounter Miscellaneous Notes Telephone Encounter - Alfreda Han RN - 01/12/2020 10:16 AM EDT Unable to reach this patient by phone to review medications and allergies prior to upcoming tele-appointment scheduled with Neurosurgery provider. No message left. documented in this encounter Plan of Treatment Not on filedocumented as of this encounter Visit Diagnoses Not on filedocumented in this encounter Care Teams Inbound Sales Representative Relationship Specialty Start Date End Date France Lam MD PCP - General 05/02/13 02/04/20 [address] [place] [address] documented as of this encounter
--- OUTSIDE RECORDS SUMMARY | 2022-03-16 11:02 | XMS_ITS | Encounter Summary ---
:1945 Author Organization [facility] [place] [address] Care Team Providers Name Role Phone Jovany Lott MD Primary Care Provider Reason for Visit Reason Onset Date Comments Follow-up 06/15/2020 Tobacco Treatment Encounter Details Date Type Department Care Team Description 06/15/2020 Telephone Vascular Surgery at [facility] (Tobacco [facility] Sukumar, RN Treatment) [place] [address] Social History Tobacco Use Types Packs/Day Years Used Date Former Smoker Cigars 0.5 Quit: 11/29/19 20 Smokeless Tobacco: Former User Sex Assigned at Date Recorded Not on file documented as of this encounter Miscellaneous Notes Telephone Encounter - Ryan Tran RN - 06/15/2020 1:42 PM EST DATE: 06/15/2020 NAME: Jovany Hi : 1945 Reason for Call: 6-month follow-up for Tobacco Treatment Pt remains tobacco-free. Will follow-up at the annual fidelina. EMR updated. Ryan Tran, MSN, RN-BC, NCTTP Tobacco Strap Folding Machine Operator [facility] Pager #[phone] documented in this encounter Plan of Treatment Not on filedocumented as of this encounter Visit Diagnoses Not on filedocumented in this encounter Care Teams Car Bracer Relationship Specialty Start Date End Date Jovany Lott MD PCP - General Family Medicine 02/05/20 [place] [address] documented as of this encounter
--- OUTSIDE RECORDS SUMMARY | 2022-03-16 11:02 | XMS_ITS | Encounter Summary ---
:1945 Author Organization [facility] Address [place] [address] Care Team Providers Name Role Phone France Lam MD Primary Care Provider Reason for Visit Reason Onset Date Comments TeleHealth 01/08/2020 Appt 01/09/20 Encounter Details Date Type Department Care Team Description 01/08/2020 Telephone Neurology at [facility] Efrain Nicole PA TeleHealth (Appt [facility] 12/[address] [place] [address] NEUROLOGY [phone] [place], [place] [address] (Wo rk) Social History Tobacco Use Types Packs/Day Years Used Date Current Every Day Smoker Cigars 0.5 Sex Assigned at Date Recorded Not on file documented as of this encounter Miscellaneous Notes Telephone Encounter - Elza Hinds CMA - 01/08/2020 1:33 PM EDT Spoke with patient to review medications and allergies prior to upcoming tele- appointment scheduledwith Neurology provider. documented in this encounter Plan of Treatment Not on filedocumented as of this encounter Visit Diagnoses Not on filedocumented in this encounter Care Teams Wire Stripping Machine Operator Relationship Specialty Start Date End Date France Lam MD PCP - General 05/02/13 02/04/20 [address] [address] documented as of this encounter
--- OUTSIDE RECORDS SUMMARY | 2022-03-16 11:02 | XMS_ITS | Encounter Summary ---
:1945 Author Organization [facility] Address [facility] [place] [address] Care Team Providers Name Role Phone Jovany Lott MD Primary Care Provider Encounter Details Date Type Department Care Team Description 08/31/2020 TH Visit Cardiology at [facility] Faustino Garduno Atrial fibrillation, unspeci fied type (Primary Dx); (TeleHealth) [facility] MD Jaquan Acute ST elevation myocardial infarction (STEMI) of inferior wall; [facility] Acute systolic CHF (congesti ve heart failure), NYHA class 3, MILVIA/AHA stage C; [place], [place] Center Hyperlipidemia, unspecified hyperlipidem ia type; [address] [place], [place] Intracranial hemorrhage; [phone] [id number] PFO (patent foramen ovale); [phone] Claudication fr om peripheral vascular disease, left (Work) Social History Tobacco Use Types Packs/Day Years Used Date Former Smoker Cigars 0.5 Quit: 11/29/19 20 Smokeless Tobacco: Former User Sex Assigned at Date Recorded Not on file documented as of this encounter Progress Notes Faustino Garduno MD - 08/31/2020 3:20 PM EST STRUCTURAL/INTERVENTIONAL VASCULAR DISEASE TELE VISIT NOTE Jovany Hi 08/31/20 The patient consented to this being a virtual visit. HPI: Jovany Hi is a 75 y.o. year old male with a past medical history significant for CAD s/p inferior STEMI [s/p MACARIO to RCA x3, residual LCx disease - non-culprit artery; s/p lytics] with complicated clinical course 11/28-12/04/19 (RV failure manifesting as cardiogenic shock, left sided diplopia with ICH, bilateral PE; paroxysmal atrial fibrillation [[id number]: 5]; PAD; HLD; HTN; smoking and PFO,who presents for cardiovascular follow-up. Since our last visit together, he has visited with our expert lipidologist Dr. Valdivia on 03/12/20 (patient not interested in alirocumab at the time). He has no symptoms of angina or heart failure. He does report claudication when walking longer distances. Notably, he reports that he was told he may have blood in my urine or stool based on a recent PCP appointment with [facility]. [facility]ustino Ch[facility]. However, he has not grossly noted that when goesto the restroom and denies other bleeding stigmata on his current AP/AC regimen. TH Visit 12/30/19: Since discharge, he has been feeling well. He has no angina or heart failure equivalent symptomatology. He still has residual blurry vision with small print, and was recently seen in follow-up by neurosurgery. No new neurological symptoms. He starts cardiac rehabilitation tomorrow 12/31/19. Brief ROS: Activity level: Good No new orthopnea, PND, LE edema. No lightheadedness, dizziness, syncope/pre- syncope. No new CP. Patient Active Problem List Diagnosis Date Noted ??? PFO (patent foramen ovale) 08/10/2020 ??? Atrial fibrillation, with cardioembolic stroke, on [...] Outpatient Medications Medication Sig Dispense Refill ??? clopidogreL (Plavix) 75 mg Tablet Take [...] by mouth daily. 30 tablet 0 ??? nitroGLYcerin (Nitrostat) 0.4 mg Tablet, Sublingual Place 1 tablet under the tongue every 5 minutes as needed for Chest pain. 30 tablet 0 ??? apixaban (Eliquis) 5 mg Tablet Take 1 tablet by mouth 2 times daily. 60 tablet 0 ??? cholecalciferol, Vitamin D3, 50 mcg (2,000 unit) Tablet Take 2,000 Units by mouth every other day. Medications were reviewed with patient. Objective Data: [...] a non-culprit artery. S/P DESx3 in the [id number] RCA. Aspiration thrombectomy performed, and integrellin bolus [...] pleural effusions. Assessment: Jovany Hi is a 75 y.o. year old male with a past medical history significant for CAD s/p inferior STEMI [s/p MACARIO to RCA x3, residual LCx disease - non- culprit artery; s/p lytics] with complicated clinical course 11/28-12/04/19 (RV failure manifesting as cardiogenic shock, left sided diplopia with ICH, bilateral PE; paroxysmal atrial fibrillation [[id number]: 5]; PAD; HLD; HTN; smoking and PFO, who presents for cardiovascular follow-up. CV issues are currently stable. Plan 1. CAD - CCS Class 0. Will complete 1 year of clopidogrel 11/28/20. Thereafter, I would recommend he transition back to baby aspirin with his DOAC therapy. Appreciate Dr. Valdivia's consultation with Jovany regarding his lipid control and candidacy for PCSK9 (he declines). 2. Afib - CHADS2-vasc 5, presently on anticoagulation and amiodarone. He has undergone LAAO consultation with Dr. Sanchez previously, and may ultimately be interested in the Watchman device down the line. However, I would like to lyman further information regarding his [facility] with [facility] Chou(the patient references the possibility that he may have blood in his urine or stool). Will also discuss further with his local lamp assembler, Dr. Mejia. 3. Bilateral PE - Case discussed with Dr. Sanchez above; likely provoked in lieu of his prolonged hospitalization. He has completed at least 6 months of oral A/C (coinciding treatment for his afib). 4. PAD - Continue optimal medical therapy for now. Will place referral for SET/walking program. F/U 3 months Faustino Garduno MD Time spent: 35 minutes Addendum 09/13/20: Called [phone] or [phone] and was able to speak to Dr. Faustino Chou. Pt also sees Dr. Lott in [facility] for local primary care needs. Dr. 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 5RBCs also noted on urinanalysis that subsequently cleared on repeat testing. documented in this encounter Plan of Treatment Not on filedocumented as of this encounter Visit Diagnoses Diagnosis Atrial fibrillation, unspecified type - Primary Acute ST elevation myocardial infarction (STEMI) of inferior wall Acute systolic CHF (congestive heart reid lure), NYHA class 3, MILVIA/AHA stage C Acute systolic heart failure Hyperlipidemia, unspecified hyperlipidem ia type Intracranial hemorrhage Unspecified intracranial hemorrhage PFO (patent foramen ovale) Ostium secundum type atrial septal defec t Claudication from peripheral vascular di sease, left Peripheral vascular disease, unspecified documented in this encounter Care Teams Scagliola Mechanic Relationship Specialty Start Date End Date Jovany Lott MD PCP - General Family Medicine 02/05/20 [place] [id number] documented as of this encounter
--- OUTSIDE RECORDS SUMMARY | 2022-03-16 11:02 | XMS_ITS | Encounter Summary ---
:1945 Author Organization [facility] Address [facility] [place] [address] Care Team Providers Name Role Phone France Lam MD Primary Care Provider Encounter Details Date Type Department Care Team Description 12/26/2019 TH Visit Cardiology at [facility] Merlin Sanchez V, Claudication from peripheral vascular disease, left ; (TeleHealth) [facility] Hyperlipidemia, unspecified hyperlipidem ia type; Drive [facility] Acute ST elevation myocardia l infarction (STEMI) of inferior wall; [place], [place] [facility]ENTER Acute systolic CHF (congestive heart reid lure), NYHA class 3, MILVIA/AHA stage C [address] CARDIOLOG[address] DEPT. [phone] [place] [address] Social History Tobacco Use Types Packs/Day Years Used Date Current Every Day Smoker Cigars 0.5 Sex Assigned at Date Recorded Not on file documented as of this encounter Progress Notes Merlin Sanchez MD - 12/26/2019 9:40 AM EDT 74 yo Male with PAF recently discharged from after STEMI complicated by CVA. CardiacCT obtained during hospitalization to evaluate BEKAH for Closure, study reveal bilateral PE's. Patient was subsequently started on apixaban inaddition to DAPT (post stent). Called patient in follow-up. Patient reports doing well, his eyesight has improved and can read (though is easier to read bold print). He has resumed most routine activities and denies angina or anginal equivalents, pre syncope or syncope, TIA or stroke or symptoms consistent with R or L sided ventricular failure. Though the primary purpose of the call was to discuss BEKAH-C/WATCH, with the findings of PE on Cardiac CT, best is to differ this conversation until detention OAC strategy has been set. Specifically, if this is being treated as a provoked dvt/pe, then would re-evaluate to coordinated with OAC discontinuation. I discussed the above findings with the patient and his both of whom appear to understand and is in agreement with the plan going forward. Merlin Sanchez M.D., F.A.C.C. paint mixer machine Pager 2020 >50% of the 15 minute evaluation was spent in direct conversation/counselling documented in this encounter Plan of Treatment Not on filedocumented as of this encounter Visit Diagnoses Diagnosis Claudication from peripheral vascular di sease, left Peripheral vascular disease, unspecified Hyperlipidemia, unspecified hyperlipidem ia type Acute ST elevation myocardial infarction (STEMI) of inferior wall Acute systolic CHF (congestive heart reid lure), NYHA class 3, MILVIA/AHA stage C Acute systolic heart failure documented in this encounter Care Teams Network Specialist Relationship Specialty Start Date End Date France Lam MD PCP - General 05/02/13 02/04/20 [address] [place] [address] documented as of this encounter
--- OUTSIDE RECORDS SUMMARY | 2022-03-16 11:02 | XMS_ITS | Encounter Summary ---
:1945 Author Organization [facility] [place] [address] Care Team Providers Name Role Phone France Lam MD Primary Care Provider Encounter Details Date Type Department Care Team Description 12/08/2019 Telephone [place] [facility] [place] [address] Social History Tobacco Use Types Packs/Day Years Used Date Current Every Day Smoker Cigars 0.5 Sex Assigned at Date Recorded Not on file documented as of this encounter Miscellaneous Notes Telephone Encounter - Elza Bradshaw - 12/22/2019 6:[address] in [facility] Telephone Encounter - Elza Bradshaw - 12/18/2019 3:43 PM EDT Left message at [facility] requesting they call back to advise if patient has been scheduled for CT. Telephone Encounter - Sarah Boucher - 12/08/2019 3:[address] order to [facility] to schedule, 12/16-12/18 for 12/22 TOV scheduled w/[facility] Telephone Encounter - Sarah Boucher - 12/08/2019 9:50 AM EDT RN, please put in CT order external=[facility] Pt's called not able to come to [facility] on 12/[address] requested to have CT locally at [facility] call w/results. documented in this encounter Plan of Treatment Not on filedocumented as of this encounter Visit Diagnoses Not on filedocumented in this encounter Care Teams Ruling Machine Set Up Operator Relationship Specialty Start Date End Date France Lam MD PCP - General 05/02/13 02/04/20 [address] [place] [address] documented as of this encounter
--- OUTSIDE RECORDS SUMMARY | 2022-03-16 11:02 | XMS_ITS | Encounter Summary ---
:1945 Author Organization [facility] [place] [address] Care Team Providers Name Role Phone Jovany Lott MD Primary Care Provider Reason for Visit Consultation (Routine) - Closed Specialty Diagnoses / Procedures Referred By Contact Refer red To Contact Cardiology Diagnoses ST elevation (STEMI) myocardial infarction of unspecified site Hyperlipidemia, unspecified PeriDawit muhammad MD [place] [address] [place] [address] [facility] EPT [address] [place] [address] Fax: Referral ID Status Reason Start Date Expiration Date Visits V isits Requested Authorized [id number] Closed Consult, Test 02/10/2020 02/09/2021 [facility] PCP Updated and/or Approved Encounter Details Date Type Department Care Team Description 03/12/2020 TH Visit Cardiology at [facility] Melina Payan Fredrickson type IIa hyperli poproteinemia; (TeleHealth) [facility] Hyperglycemia; [facility] Elevated TSH; [facility] Hypothyroidism, acquired [address] CARDIOLOGY DEPT [phone] [place], [place] [address] Social History Tobacco Use Types Packs/Day Years Used Date Former Smoker Cigars 0.5 Quit: 11/29/19 20 Smokeless Tobacco: Former User Comments: Quit chew tobacco years and y ears ago Sex Assigned at Date Recorded Not on file documented as of this encounter Progress Notes Melina Payan MD - 03/12/2020 1:00 PM EDT [facility]--Initial Consultation as a telehealth visit Jovany understands that he will be billed as though this is an in person visit ID/PMH Jovany is a 75 y.o. followed by Jovany Lott MD with the following problems: Patient Active Problem List Diagnosis Code ??? Claudication from peripheral vascular disease, left I73.9 ??? Hyperlipidemia E78.5 ??? Tobacco abuse Z72.0 ??? Alcohol abuse F10.10 ??? Hearing loss of both ears H91.93 ??? Tinnitus of both ears H93.13 ??? Acute ST elevation myocardial infarction (STEMI) of inferior wall I21.19 ??? Intracranial hemorrhage I62.9 ??? Acute systolic CHF (congestive heart failure), NYHA class 3, MILVIA/AHA stage C I50.21 ??? 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 They have on son and 2 teenaged grandchildren. He enjoys car races - in the past. He has not had any alcohol since August 1989. He recently quit smoking during hospitalization for a myocardial infarction. He says the urges are still there but he can get by them. Present Illness Jovany Hi is seen at the request of Drs. Lott and Roberto for evaluation and management of dyslipidemia, specifically elevated LDL in the setting of documented coronary artery disease and difficulty tolerating statins in the past. He was tried on multiple statins and always experienced severe proximal muscle pain and weakness which recurred with each rechallenge and improved with discontinuation of the statin. He has been on both rosuvastatin and atorvastatin at high and low doses. He describes shoulder and neck pain so bad that I couldn't turn my neck. He also recalls having a rash on statins. When he was hospitalized for an acute STEMI . During his hospitalization he was started on ezetimibe but is not currently on this agent. He states that he was on ezetimibe over 3 years ago and it toocaused severe caused muscle (neck and shoulder) pain. He also was on Repatha - severe head aches andagain could not move his neck and his shoulders were also very painful. In November Jovany was admitted with a STEMI complicated by atrial fibrillation, cardiogenic shock, and anacute CVA. He received an emergent PCI and 3 stents to the RCA. He was started on amiodarone for theafib and taken off 02/26/2020. Total cholesterol 350 mg/dL Triglycerides 135 mg/dL HDL cholesterol 49 mg/dL LDL cholesterol 274 mg/dL Glucose 103 mg/dL AST ALT both normal Evaluation for secondary causes Labs studies have included normal liver and urine studies. While hospitalized his TSH was slightly elevated (repeat yesterday 4.56 mcIU/mL - still modestly elevated), and his hemoglobin A1c was 6.3%. He takes metoprolol and furosemide both of which are associated with secondary dyslipidemia (elevated t riglycerides) this is not Jovany's lipid abnormality. Dietary habits Breakfast: toast - white uses butter Coffee powdered cream / sugar less than a quarter teaspoon Lunch: bologna bread and butter, turkey sandwich bailey, eggs and home fries coffee as above Dinner: hamburger helper, pork, chicken, ham, hamburger vegetable potato, water, 2% milk rare - soda7.5 ounces with burger and fries Snacks: rare apple, cupcakes, apple pie, cheese its, chips, peanut butter and jelly sandwich, cheerios - 2% milk Exercise habits Doing cardiac rehab Review of Systems: Constitutional: negative for fever, weight loss, weight gain HEENT: getting used to visual problems - can read the big print,vision still can fade in and out Cardiac: negative for chest pain, SOB on exertion or at rest, no orthopnea, PND, edema, no palpitations Respiratory: No SOB, cough, wheezing, hemoptysis Gastrointestinal: No abdominal pain, nausea, vomiting, diarrhea, Genitourinary: No nocturia, or dysuria Musculoskeletal: No muscle or joint pain Neurological: occ headaches when stressed, no sensory or motor deficits, no dizziness Endocrine: Denies polyuria, polydipsia, heat or cold intolerance Medications Current Outpatient Medications Medication Sig Dispense Refill [...] 2,000 Units by mouth every other day. No current facility-administered medications for this visit. Allergies Penicillins and Tlgzvmm-vmn-fid reductase inhibitors Physical Exam not performed telehealth Assessment Jovany is a very high risk 75-year-old man who suffered a STEMI complicated by A. fib, cardiogenic shock, and a CVA. He has multiple cardiovascular risk factors including peripheral artery disease, hyperlipidemia (elevated LDL, depressed HDL), a 06-tfjm-coed history of smoking, and prediabetes. Jovany quit smoking while in the hospital and continues to remain off cigarettes. I applauded his efforts at smoking cessation and acknowledged how difficult smoking cessation is. Jovany is not interested in being on any lipid altering medications. Every cholesterol-lowering medicine I have ever been on has caused severe neck and shoulder pain. I mentioned, that he has not beenon alirocumab. [facility] and [facility] too caused severe pain. With this in mind, he said he is not interested in trying alirocumab. Finally we discussed lipid apheresis but Jovany replied: I can't drive to [place] [facility] every 2 weeks for that. 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 This is an autosomal dominant disorder that will increase his risk of a recurrent cardiac event. I have explained that diet will make a difference butthat he is highly unlikely to fully normalize his lipids with diet alone. I also recommended that his son and grandchildren be screened for familial hypercholesterolemia with a lipid profile. With regard to Jovany's diet, it is very rich in saturated fats. I made multiple dietary recommendations including switching to light whipped butter or a butter made with olive oil or canola oil, eliminating egg yolks, avoiding bologna, switching to whole wheat bread, limiting red meat to no more than once or twice a week and increasing his intake of fruit (he only likes apples) instead of cupcakes andapple pie. His evening snack of Cheerios is fine but I have suggested that he switch to 1% milk. I will plan to see Jovany in follow-up in 3 months. I encouraged him to initiate a daily walking program of 30 minutes/day once cardiac rehab is over. I will also recheck his TSH (his TSH may be high now due to the amiodarone he was on). If his TSH remains up at his f/u I will add a small dose of levothyroxine. action ?? Explained my impression and answered all questions ?? This visit was 45 minutes in length of which 35 minutes were spent in counseling ?? I spent 35 minutes reviewing Jovany's chart prior to his arrival in 20 minutes charting after his departure Follow up in 3 months MELINA PAYAN MD 03/12/2020 CC: Jovany Lott MD Estefani Camarillo LNA - 03/12/2020 1:00 PM EDT Pt is taken all Med's, Current Bp 136/68 Hr pt wasn't sure. Wt is about 140 lb, Ht 5'7 ISAI Gamino documented in this encounter Plan of Treatment Not on filedocumented as of this encounter Visit Diagnoses Diagnosis Tiny type IIa hyperlipoproteinemi a Pure hypercholesterolemia Hyperglycemia Other abnormal glucose Elevated TSH Other abnormal blood chemistry Hypothyroidism, acquired Unspecified hypothyroidism documented in this encounter Care Teams Licensed Mortician Relationship Specialty Start Date End Date Jovany Lott MD PCP - General Family Medicine 02/05/20 [place] [address] documented as of this encounter
--- OUTSIDE RECORDS SUMMARY | 2022-03-16 11:02 | XMS_ITS | Encounter Summary ---
:1945 [place] [address] Care Team Providers Name Role Phone France Lam MD Primary Care Provider Encounter Details Date Type Department Care Team Description 12/29/2019 Ancillary Procedure Radiology Library at Ivette Salas [facility] [place] [place] [address] [place] [address] [phone] (Wo rk) Social History Tobacco Use Types Packs/Day Years Used Date Current Every Day Smoker Cigars 0.5 Sex Assigned at Date Recorded Not on file documented as of this encounter Plan of Treatment Not on filedocumented as of this encounter Procedures Procedure Name Priority Date/Time Associated Diagnosis Comme nts FILM LIBRARY Routine 12/29/2019 12:00 AM Results for this STORAGE ONLY CT EDT procedure ar e in HEAD the results section. documented in this encounter Results Film Library- Storage Only CT Head (12/29/2019 12:00 AM EDT) Specimen (Source) Anatomical Location Collection Method / Collectio n Time Received Time / Laterality Volume Narrative JADE - 01/08/2020 5:00 PM EDT This exam is auto-finalizing. It's purpo se is for storage only. Alfreda Salas APRN [facility] FILM LIBRARY ORDERABLES Performing Organization Address City/State/ZIP Code Phon e Number [place], [place] documented in this encounter Visit Diagnoses Not on filedocumented in this encounter Care Teams Clip On Sunglasses Inspector Relationship Specialty Start Date End Date France Lam MD PCP - General 05/02/13 02/04/20 [address] [place] [address] documented as of this encounter
--- OUTSIDE RECORDS SUMMARY | 2022-03-16 11:02 | XMS_ITS | Encounter Summary ---
:1945 Author Organization [facility] [place] [address] Care Team Providers Name Role Phone France Lam MD Primary Care Provider Encounter Details Date Type Department Care Team Description 01/09/2020 TH Visit Neurology at [facility] Efrain Nicole, Intracranial hemorrhage; (TeleHealth) [facility] ESTEFANY Tobacco abuse; Drive [facility] Cerebrovascular accident (CV A) due to embolism of right posterior cerebral artery [facility] [address] NEUROLOGY [phone] [place] [address] Social History Tobacco Use Types Packs/Day Years Used Date Current Every Day Smoker Cigars 0.5 Sex Assigned at Date Recorded Not on file documented as of this encounter Progress Notes Efrain Nicole PA - 01/09/2020 9:00 AM EDT [facility] Stroke [facility] Department [place] [address] t: [phone] / f: [phone] TELEPHONE ENCOUNTER Date of Appointment: 01/09/2020 I provided care to the patient today via telephone call. The total time associated with this visit was 40 minutes. Patient verbally consents to this telephone visit and understands that this visit may be billed, similar to a clinic office visit. Patient: Jovany Hi PCP: France Lam MD SUBJECTIVE I contacted Jovany Hi today by phone in post discharge follow-up of stroke/IPH. His Shadia was in the background with him. He is a 74 y.o. male with medical history including PAD, HLD, HTN, tobacco use, who was admitted to cardiology in October 2019 for STEMI, underwent lytics and stenting 11/28, and post- intervention course complicated by new afib and cardiogenic shock. Post-cath, he developed visual symptoms including blurred vision and diplopia and head CT revealed focal hemorrhage in the region of the left optic tract. MRI showed this known hemorrhage as well as a punctate right occipital infarct, likely embolic, and two chronic microbleeds in the right anterior centrum semiovale. Follow-up MRI after 4 days was stable. Underwent cardiac CT for possible left atrial appendage closure and bilateral PE noted. He was started on triple therapy, with plan to discontinue aspirin after 1 month and continue apixaban for 6-12 months as treatment for his PE. History of statin intolerance, was referred to lipid clinic for consideration of PCSK9 inhibitor. Interval: - doing well at home, continues to report blurred vision, able to read large print but has problem with fine print, needs to move head and stare from different directions before words come into focus. He is not aware of any field cut, blind spots or limitations in peripheral vision, denies other neurological deficits. Able to perform all usual activities. -Has been driving around town with in car and hasn???t had any trouble. -stopped aspirin December 30 as instructed by cardiology - had f/u head CT at [facility] which was stable with resolving known hemorrhage - has not resumed smoking -has been in touch with Dr. Sanchez for Watchman, deferred for duration of anticoagulation for PE Modified Sipsey Scale (MRS) 0: No symptoms at all 1: No significant disability despite symptoms; able to carry out all usual duties and activities 2: Slight disability; unable to carry out all previous activities, but able to look after own affairs without assistance 3: Moderate disability; requiring some help, but able to walk without assistance 4: Moderate disability; unable to walk without assistance and unable to attend to own bodily needs without assistance 5: Severe disability; bedridden, incontinent and requiring constant nursing care and attention 6: DECISION MAKING/PLAN # punctate R occipital embolic infarct in setting of new afib # L IPH affecting L optic tract #HTN #HLD #tobacco abuse -continue antiplatelet for CAD per cardiology. -Historical intolerance of statin, agree with referral to lipid clinic as indicated in cardiology notes -continue eliquis for secondary stroke prevention at least for duration of adequate treatment for his PE, then consideration of watchman device, Dr. Sanchez already involved. -continue to support smoking cessation, encouraged/supported who is also trying to quit, no need for NRT at this time -blood pressure appears well controlled on current regimen -advised vision/eye exam with his local provider ([facility]); consider referral to neuro-ophthalmology here in future if needed -advised caution with driving - he has been driving for the past month without apparent problem and visual butler documented intact on last neuro exam, but unable to assess in this telephone encounter. Education provided today covered: patient-specific stroke risk factors, cause of the stroke, the role of stroke related medications, potential side effects of these medications, management of modifiable risk factors including heart healthy diet, increased physical activity, maintaining smoke free status, moderation in alcohol, weight management, blood pressure, glucose and cholesterol control, warning signs of stroke, plan to contact EMS in event of recurrent symptoms. ESTEFANY HERNANDEZ 01/09/2020 documented in this encounter Plan of Treatment Not on filedocumented as of this encounter Visit Diagnoses Diagnosis Intracranial hemorrhage Unspecified intracranial hemorrhage Tobacco abuse Tobacco use disorder Cerebrovascular accident (CVA) due to em bolism of right posterior cerebral artery documented in this encounter Care Teams Detector Car Operator Relationship Specialty Start Date End Date France Lam MD PCP - General 05/02/13 02/04/20 [address] [place] [address] documented as of this encounter
--- OUTSIDE RECORDS SUMMARY | 2022-03-16 11:02 | XMS_ITS | Encounter Summary ---
:1945 Author Organization [facility] Address [address] [place] [address] Care Team Providers Name Role Phone Unavailable Primary Care Provider Unavailable Encounter Details Date Type Department Care Team Description 09/15/2003 Results Only [facility] - Otis Patel MD conversion [address] [facility] [address] [place] [address] [place] [address] (Wo rk) Social History Tobacco Use Types Packs/Day Years Used Date Never Assessed Sex Assigned at Date Recorded Not on file documented as of this encounter Plan of Treatment Not on filedocumented as of this encounter Procedures Procedure Name Priority Date/Time Associated Diagnosis Comme nts SURGICAL PATHOLOGY Routine 09/15/2003 0:00 EST Re sults for this procedure are i n the results section. documented in this encounter Results SURGICAL PATHOLOGY (09/15/2003 0:00 EST) Pathology Report: SURGICAL PATHOLOGY REPORT [facility] Reports generated via electronic interface contain lupe ginal data; LAB however they are lacking the format of the original re port. Caution should be taken when reading/interpreting unfo rmatted reports. Name: ? ANGEL LUIS SALINAS ? Accession #: ? [id number] ? : ? 1945 (Age: 58) ??M ? Collect Date: ? 09/15/2003 ? Location: ? [facility] ? Receive Date: ? 004 ? Provider: OTIS MOSS MD Copy to: MALCOM MCGEE WASTEWATER TREATMENT PLANT OPERATOR ? Final Pathologic Diagnosis: ? Skin of back, re-excision: 1. ?Cicatrix. 2. ?No residual atypical melanocytic nevu s is identified. Document reviewed and electronically signed by: Johnathan Florez MD Report ??Date: 09/17/2003 16:41 By the signature above, the attending physician certif ies that he/she has personally conducted a gross and/or microscopic examin ation of the described specimens and rendered or confirmed the above diagnosi s. Specimen(s) Received: ? Excision atypical nevus (previous biopsy) Clinical History: ? Not listed Gross Description: ? Received in formalin labelled Mi ller and mole back is an unoriented elliptical excision of skin that measures 1.1 x 0.6 cm and is excised to a depth of 0.5 cm. ??There is a cent rally located incision running parallel to the long axis of the specimen, and there is a sut ure at one end of this incision. ??The specimen is black inked, serially sectioned and submit pepper as follows: BLOCK CAM A1 ?Tips, reverse en face A2 ?Middle sections (Dr. Puga)/tmg ?? End of Report Specimen Performing Organization Address City/State/ZIP Code Phon e Number [facility] [address] [place] [address] [facility] [address] [place] [address] documented in this encounter Visit Diagnoses Not on filedocumented in this encounter
--- OUTSIDE RECORDS SUMMARY | 2022-03-16 11:02 | XMS_ITS | Clinical Summary ---
:1945 Author Organization [facility] [place] [place] [address] Care Team Providers Name Role Phone Jovany Lott MD Primary Care Provider Allergies Active Allergy Reactions Severity Noted Date Comments Penicillins 05/13/2013 Pt doesn't gely mber reaction Mylhdtw-Bfw-Kiu Reductase 05/13/2013 St iff neck, upset stomach, Inhibitors back pain Medications Medication Sig Dispensed Refills Start Date End Date Status cholecalciferol, Take 2,000 Units 0 Active Vitamin D3, 50 mcg by mouth every (2,000 unit) Tablet other day. clopidogreL (Plavix) 75 Take 1 tablet by 30 tablet 0 0 Active mg Tablet mouth daily. furosemide (Lasix) 20 Take 1 tablet by 15 tablet 0 12/09/2019 Active mg Tablet mouth every other day. lisinopriL Take 1 tablet by 30 tablet 0 12/09/2019 A ctive (Prinivil;Zestril) 2.5 mouth daily. mg Tablet metoprolol succinate XL Take 0.5 tablets 30 tablet 0 0 Active (Toprol-XL) 25 mg by mouth daily. Tablet Sustained Release [address] 1 tablet 30 tablet 0 12/08/2019 Active (Nitrostat) 0.4 mg under the tongue Tablet, Sublingual every 5 minutes as needed for Chest pain. apixaban (Eliquis) 5 mg Take 1 tablet by 60 tablet 0 0 Active Tablet mouth 2 times daily. Active Problems Problem Noted Date PFO (patent foramen ovale) 08/10/2020 Overview: Cardiac CT 12/04/19 IMPRESSION Watchman measurements as above. Findings indicate a patent foramen ovale . Bilateral segmental/subsegmental pulmona ry arterial emboli are incompletely visualized on this exam. Small bilateral pleural effusions. Atrial fibrillation, with cardioembolic stroke, on ami odarone 12/08/2019 Overview: 12/07: found to have atrial fibrillation /atrial flutter with intermittent rvr to 170s that was associated with hypotension and dizziness and difficult to control on beta-kely. Patient was started on amiodarone for rhythm control. 12/03: Cardiac CT morphology performed as patient was evaluated for Watchman procedure given history of hemorrhagic stroke and high CHADVASC score of 5. Found to have bilateral PE and patent PFO. Discu ssed with Neurology and given stable ana ging and neuro exam he was started on Heparin gtt and transitioned to Eliquis, in addition to aspirin and plavix. Acute systolic CHF (congestive heart failure), NYHA cl ass 3, MILVIA/AHA stage 12/03/2019 C Overview: 11/28 Acute onset secondary to inferior stemi and RV dysfunction. Intracranial hemorrhage 11/30/2019 Overview: Focal hemorrhage with small amount of a djacent edema projecting in the region of the left optic tract. - CT report 11/[address] elevation myocardial infarction (STEMI) of in ferior wall 11/29/2019 Overview: 11/28: Inferior STEMI s/p 3 MACARIO to RCA a ssociated with hypotension from RV impairment. 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 There are left ventricular seg mental wma present, Pulmonary artery hypertension could not be assessed due to inadequate tricuspid regurgitation jet. LA moderately dilated. Hyperlipidemia 06/12/2013 Tobacco abuse 06/12/2013 Alcohol abuse 06/12/2013 Overview: Sober since 08/1989 Hearing loss of both ears 06/12/2013 Tinnitus of both ears 06/12/2013 Claudication from peripheral vascular disease, left Encounters Date Type Specialty Care Team Description 03/10/2022 Ancillary Procedure Radiology Jovany Lott MD from Last 3 Months Family History Medical History Relation Comments Myocardial Infarction Father at 68 Myocardial Infarction Paternal Uncle 1 Myocardial Infarction Paternal Uncle 2 Relation Status Comments Father Paternal Uncle 1 Paternal Uncle 2 Sister Alive Social History Tobacco Use Types Packs/Day Years Used Date Former Smoker Cigars 0.5 Quit: 11/29/19 20 Smokeless Tobacco: Former User Sex Assigned at Date Recorded Not on file Last Filed Vital Signs Vital Sign Reading Time Taken Comments Blood Pressure 108/59 12/08/2019 12:29 PM EDT Pulse 74 12/08/2019 12:29 PM EDT Temperature 36.6 ??C (97.9 ??F) 12/08/2019 12:29 PM EDT Respiratory Rate 19 12/08/2019 12:29 PM EDT Oxygen Saturation 95% 12/08/2019 12:29 PM EDT Inhaled Oxygen Concentration - - Weight 62.9 kg (138 lb 10.7 oz) 12/08/2019 6:00 AM EDT Height 177.8 cm (5' 10) 12/05/2019 2:53 PM EDT Body Mass Index 19.9 12/05/2019 2:53 PM EDT Plan of Treatment Health Maintenance Due Date Last Done Comments Covid-19 Vaccine (#1) 1950 Pneumoccocal Vaccine: 65+ (1 - PCV) 01/21/1952 Hepatitis C Screening 01/21/1964 Tdap adult 1965 Tetanus vaccine 1965 Zoster vaccine (1 of 2) 01/21/1996 Advance Directive 2001 Influenza (Flu) vaccine (1 of 1 - Influenza standard 03/02/2022 series) Procedures Procedure Name Priority Date/Time Associated Comments Diagnosis FILM LIBRARY STORAGE Routine 03/10/2022 12:00 AM Results for this ONLY ULTRASOUND EDT procedure ar e in STUDY the results section. from Last 3 Months Results Film Library- Storage Only Ultrasound Study (03/10/2022 12:00 AM EDT) Specimen (Source) Anatomical Location Collection Method / Collectio n Time Received Time / Laterality Volume Narrative [facility] - 03/11/2022 2:40 AM EDT This exam is auto-finalizing. It's purpo se is for storage only. Jovany Lott MD IMG FILM LIBRARY ORDERABLES Performing Organization Address City/State/ZIP Code Phon e Number [facility] [place] from Last 3 Months Insurance Payer Benefit Plan / Subscriber ID Effective Dates Phone Addre ss Type Group MEDICARE MEDICARE PART [id number] 2019-Prese [phone] [place] [id number] [place] [id number] 2018-Presen [employer] [place] [id number] Advance Directives Latest Code Status on File Code Status Date Activated Date Inactivated Comments DNR 11/29/2019 5:16 PM 12/08/2019 6:16 PM Does patient have capacity to make Yes decision: Content of discussion: discussed code status with patient wh o was alert, oriented x3 and understood completely the benefits/risks. Full Code 11/29/2019 1:03 PM 11/29/2019 5:16 PM Does patient have capacity to make decision: Yes Full Code 11/29/2019 11:01 AM 11/29/2019 1:03 PM Does patient have capacity to make decision: Yes Care Teams Picker And Packer Relationship Specialty Start Date End Date Jovany Lott MD PCP - General Family Medicine 02/05/20 [address] [place] [id number]
--- OUTSIDE RECORDS SUMMARY | 2022-03-16 11:02 | XMS_ITS | Encounter Summary ---
:1945 Author Organization [facility] [place] [address] Care Team Providers Name Role Phone Jovany Lott MD Primary Care Provider Encounter Details Date Type Department Care Team Description 10/05/2020 Notes Only Cardiology Merlin Sanchez MD [facility] [place] [phone] CARDIOLOGY DEPT. [phone] [place], [place] [address] (Wo rk) Social History Tobacco Use Types Packs/Day Years Used Date Former Smoker Cigars 0.5 Quit: 11/29/19 20 Smokeless Tobacco: Former User Sex Assigned at Date Recorded Not on file documented as of this encounter Progress Notes Merlin Sanchez MD - 10/05/2020 5:16 PM EDTSummary: Pre-LAAO-WM Cardiac CT Cardiac CT 12/04/[address] shows what appears to be a structurally normal heart. The post acquisition software appears to be analyzing the RA-RV as apposed to LA-LV providing atypical views. The LA is fully opacified and appears to have an anterior chicken wing anatomy Min Patience 17.6 mm, Max Patience 23.9 mm, Mean Patience 20.7 mm These anatomic findings within the range appropriate for BEKAH-C with WM FLX Merlin Sanchez MD [facility] Pager 2020 documented in this encounter Plan of Treatment Not on filedocumented as of this encounter Visit Diagnoses Not on filedocumented in this encounter Care Teams Blast Furnace Keeper Helper Relationship Specialty Start Date End Date Jovany Lott MD PCP - General Family Medicine 8/6/20 [address] [place] [address] documented as of this encounter
--- OUTSIDE RECORDS SUMMARY | 2022-03-16 11:02 | XMS_ITS | Encounter Summary ---
:1945 Author Organization [facility] [place] [address] Care Team Providers Name Role Phone France Lam MD Primary Care Provider Encounter Details Date Type Department Care Team Description 12/23/2019 TH Visit Neurosurgery at [facility] Alfreda Salas Intracranial (TeleHealth) [facility] C, [employer] [place] [address] Center [phone] [place] [address] Social History Tobacco Use Types Packs/Day Years Used Date Current Every Day Smoker Cigars 0.5 Sex Assigned at Date Recorded Not on file documented as of this encounter Progress Notes Alfreda Salas C, CORPORATE LAW[employer]ER - 12/23/2019 1:30 PM EDT Images from the original note were not included. I called Jovany Hi is a 74 y.o. male with hemorrhage in the region of the left optic tract??s/p STEMI with PCI and stenting on 11/29/2019. He consents to TOV and understands that this can be billed similarly to office visit. He has returned home and reports doing well. He denies headaches, dizziness, seizure, weakness, NT or other deficits except for blurred vision which has remained the same since his recent hospitalization. He reports continuing to have some blurred vision when reading small print even with bifocals on. He states this is the same as when he was hospitalized and has not progressed. He was discharged on aspirin, plavix, Eliquis which he continues to take due to recent stents (3) and small bilateral arterial pulmonary emboli seen on cardiac CT. He had a [address] at [facility], showing slight decrease in size and attenuation of the hemorrhage along left optic tract. I explained imaging findings. I explained the additional risk of hemorrhage while on DAPT and Eliquis and told him to seek evaluation immediately if he has a fall, or exp eriences worsening vision, headaches or experiences other changes to neurologic function. Will plan on another follow up CT in 3-4 weeks which may be done at [facility] with follow up TOV [facility]. Head CT 12/18/19 Assessment and Plan Jovany Hi is a 74 y.o.male with hemorrhage in the region of the left optic tract??s/p STEMI withPCI and stenting on 11/29/2019. He remains on DAPT and Eliquis (5 mg BID) Doing well with stable vision (reports blurriness of small print). Head CT continues to small small bertram of hyperdense material along left optic tract. Plan Follow up head CT and TOV in 3 weeks unless vision worsens or he develops new symptoms in meantime. documented in this encounter Plan of Treatment Not on filedocumented as of this encounter Visit Diagnoses Diagnosis Intracranial hemorrhage Unspecified intracranial hemorrhage documented in this encounter Care Teams Branch Store Manager Relationship Specialty Start Date End Date France Lam MD PCP - General 05/02/13 02/04/20 [address] [place] [address] documented as of this encounter
--- OUTSIDE RECORDS SUMMARY | 2022-03-16 11:02 | XMS_ITS | Encounter Summary ---
:1945 Author Organization [facility] [place] [address] Care Team Providers Name Role Phone Jovany Lott MD Primary Care Provider Encounter Details Date Type Department Care Team Description 10/12/2020 Notes Only Cardiology at [facility] Willow Callejas, NIUR[facility] [place] [address] Social History Tobacco Use Types Packs/Day Years Used Date Former Smoker Cigars 0.5 Quit: 11/29/19 20 Smokeless Tobacco: Former User Sex Assigned at Date Recorded Not on file documented as of this encounter Progress Notes Willow Callejas RN - 10/12/2020 2:06 PM EDTSummary: Structural Heart Notes Contacted Mr. Hi to discuss interest in scheduling left atrial appendage closure (BEKAH). He verbalizes preference to postpone and states, I haven't made up my mind yet about the Watchman, I want totalk to my doctor at the [facility] and do a little more research before I decide what to do, I'm a little afraid of it. He notes that he has a scheduled clinic visit in November and will discuss with Dr. Garduno at that time. documented in this encounter Plan of Treatment Not on filedocumented as of this encounter Visit Diagnoses Not on filedocumented in this encounter Care Teams Ballistics Teacher Relationship Specialty Start Date End Date Jovany Lott MD PCP - General Family Medicine 02/05/20 [place] [phone] documented as of this encounter
--- OUTSIDE RECORDS SUMMARY | 2022-03-16 11:03 | XMS_ITS | Encounter Summary ---
:1945 Author Organization [facility] [place] [address] Care Team Providers Name Role Phone France Lam MD Primary Care Provider Reason for Referral Consultation (Routine) - Specialty Diagnoses / Procedures Referred By Contact Refer red To Contact Cardiology Diagnoses Acute ST elevation myocardial infarction (STEMI) of inferior wall Darrell Glasgow MD [facility] [place] [address] Referral ID Status Reason Start Date Expiration Date Visits V isits Requested Authorized [id number] Consult, 12/08/2019 06/05/2020 1 1 Test & Treat Consultation (Routine) - Closed Specialty Diagnoses / Referred By Contact Referred To Contact Procedures Cardiac Rehabilitation Diagnoses ST elevation myocardial infarction involving right coronary artery Gretchen Yoon, Cardiac Rehab, [address] [place] [phone] Fax: Referral ID Status Reason Start Date Expiration Date Visits V isits Requested Authorized [id number] Closed Consult, 12/08/2019 06/05/2020 36 36 Test & Treat Reason for Visit Auth/Cert Specialty Diagnoses / Procedures Referred By Contact Refer red To Contact Diagnoses STEMI (ST elevation myocardial infarction) STEMI Procedures CARDIAC CATHETERIZATION Referral ID Status Reason Start Date Expiration Date Visits Requ ested Visits Authorized [id number] 1 1 Encounter Details Date Type Department Care Team Description 11/29/2019 - Hospital Encounter Cardiac Special YoungBarbra MD [facility] [place] [address] ST elevation myocardial infarction invol ving left main coronary artery; 12/08/2019 Care Unit Paris Lozano MD [facility] [place] [address] ST elevation myocardial infarction invol ving right coronary artery; [facility] Edema of upper extremity; Hospital Intracranial hemorrhage; [facility] Paroxysma l atrial fibrillation; Drive Acute pulmonary embolism, un specified pulmonary embolism type, unspecified whether acute cor pulmonale present; [place], [place] Acute ST elevat ion myocardial infarction (STEMI) of inferior wall [id number] Social History Tobacco Use Types Packs/Day Years Used Date Current Every Day Smoker Cigars 0.5 Sex Assigned at Date Recorded Not on file documented as of this encounter Last Filed Vital Signs Vital Sign Reading [...] AM EDT Height 177.8 cm (5' 10) 11/29/2019 3:15 PM EDT Body Mass Index 19.9 12/05/2019 2:53 PM EDT documented in this encounter Discharge Summaries Riki Stevens MD - 12/08/2019 3:08 PM EDT Images from the original note were not included. Discharge Summary Patient Name: Angel Luis Salinas Patient Age: 74 y.o. Language: Tunisian Race: White Ethnicity: Not nor Admit date: 11/29/2019 Discharge date and time: 12/04/2019 Attending Physician: Paris Lagos MD Discharge Physician: Riki Stevens MD Follow-up Recommendations for Providers: - Anticoagulation/antiplatelet recommendations: - For next 1 month recommend triple therapy (ASA 81mg, Plavix, apixaban) given STEMI and PE and Afib - From 1 month to 12 months: Apixaban and Plavix only (hold ASA) - From 12 months on: antiplatelet therapy at discretion of computer hardware engineer - Repeat TTE in 3 months to reassess LV function - Repeat BMP in 1-2 weeks given recent start lisinopril - Referred to lipid clinic for consideration of PCSK-9 inhibitor given STEMI with intolerance of statins - Started on amiodarone this admission for recurrent rapid atrial flutter with rates ~170, recommendcontinued assessment of necessity of rhythm control strategy with computer hardware engineer - Amiodarone monitoring recommendations as below - Pt to follow up with neurosurgery (for intracranial hemorrhage) and neurology (for embolic CVA) - Will need routine cancer screening for lung cancer, colon cancer, and aortic aneurysm with PCP given age, history of smoking. Heart Rhythm Society Amiodarone Monitoring Recommendations: Lab Test Frequency LFT Baseline and every 6 months CXR Baseline and every 12 months PFT's Baseline and prn pulmonary symptoms Thyroid Baseline and every 6 months Eye exam Yearly Reasonable to obtain LFT's, TFT q 4 months for the 1st year For questions regarding this document or issues relating to this hospitalization on the Medical Service, please contact your inpatient physician through the [facility] . Issues after hours and on weekends will be handled by the Hospitalist staff on-call. Discharge Diagnoses (Hospital Problems) and Secondary Diagnoses (Chronic Problems): Active Hospital Problems Diagnosis ??? Acute ST elevation myocardial infarction (STEMI) of inferior wall ??? Atrial fibrillation, with cardioembolic stroke, on amiodarone ??? Acute systolic CHF (congestive heart failure), NYHA class 3, MILVIA/AHA stage C ??? Intracranial hemorrhage ??? Hyperlipidemia ??? Tobacco abuse ??? Claudication from peripheral vascular disease, left Resolved Hospital Problems No resolved problems to display. Active Non-Hospital Problems Diagnosis ??? Alcohol abuse ??? Hearing loss of both ears ??? Tinnitus of both ears Operations/Major Procedures: Operations: Procedure(s): CARDIAC CATHETERIZATION 11/29/2019 Other Major Procedures: N/A History of Presentation (from H&P 11/29/19): 74 y.o male with no significant PMH, was in usual state of health until yesterday when he woke up at4am this morning with severe crushing substernal chest pain /. He took two full strength aspirinand came to [facility] ED. At there was found to have ST elevation in inferior leads, slightly elevated troponin of 0.08. A STEMI code was called. He received Heparin bolus and gtt, loading of aspirin, plavix, TNK and sublingual nitrates. He's still having significant pain 01/08 after these interventions, with no significant ST changes to interval EKG. He then had some nausea and vomiting and was treated with 1 time of Zofran and Compazine. He was transferred directly to [facility] via [facility] for further management. Patient had an emergent PCI with 3 MACARIO stents placed to his RCA, with mild disease of LCX (report pending) at [facility]. He was found to be persistently hypotensive requiring Levo up to 10mcg/min. He was transferred to [facility] after the cath procedure. Bedside RHC showed CI 2.12, PAWP 11, PAP 38/15 indicating hypovolemic state. He received 1L bolus of NS with improvement of his blood pressure to 124/61. History of PAD, HLD - had side reactions to statins - so taking niacin and red rye grain. Chronic active smoker with more than 65 pack years. Family history of FL in father and two uncles. He's takingbaby aspirin every other day. ?? OSH labs prior to transfer: CBC: Unavailable CMP: Na 134, K 3.3, BUN 21 Cr 1.43 Cardiac enzymes: Tn- 0.08 CK-Unavailable Hospital Course: #Inferior STEMI #Cardiogenic shock due to right ventricular failure #Acute systolic heart failure due to ischemic cardiomyopathy The patient was treated at the OSH with systemic thrombolytics as well as ASA/Plavix load and heparin drip as described above. On arrival at [facility] he was taken for cardiac cath where he was noted to have 2 vessel CAD (RCA and LCx) with multiple high-grade stenoses of RCA. He received MACARIO of his proximal RCA lesion but attempts at stent insertion of mid-RCA lesion and thrombectomy/stent insertion of distal RCA lesion were unsuccessful. Following cardiac catheterization he required hemodynamic support (norepinephrine, dobutamine) in the cardiovascular critical care unit for hypotension due to RV failure. He was gradually able to be titrated off pressors. He was briefly treated with single antiplatelet therapy only due to new intracranial hemorrhage (detailed below) but with stability of his imaging on serial head CT he was able to be restarted on dual antiplatelet therapy. TTE revealed new systoliccardiomyopathy with LVEF 45% as well as moderate reduction in RV function. With improved hemodynamics he was gradually started on heart failure therapies including lisinopril and metoprolol. He was gently diuresed with good effect and transitioned to oral diuretics. Due to prior severe symptoms (rash,myalgia) with statins he was started referred to lipid clinic for consideration of PCSK-9 inhibitor.We initially recommended ezetemibe but were unable to reach his [facility] providers to arrange for this medication to be prescribed to the [facility] pharmacy, and the medication cost was prohibitive at a non-[facility] pharmacy. He was strongly encouraged to quit smoking and started on a nicotine patch. #Atrial fibrillation/flutter with rapid ventricular response Post-intervention he was noted to have intermittent brief bursts of rapid atrial fibrillation. The burden of tachyarrhythmias gradually increased and he was eventually started on high-dose metoprolol; however he continued to have occasional rapid atrial flutter with rates in 170s and rates in 50s in sinus. As a result he was loaded with amiodarone. He should continue oral amiodarone load and have regular monitoring while on amiodarone. Given that his tachyarrhythmias are occurring in setting of acute PE as well as recent STEMI, recommend re- evaluating risk/benefit of continued amiodarone in cardiology follow up. Anticoagulation for his atrial fibrillation was initially withheld due to intracranialbleed and he underwent cardiac CT for possible watchman evaluation but he was eventually able to be started on anticoagulation (heparin gtt --> apixaban) and tolerated this well. #Acute pulmonary embolus without cor pulmonale On his pre-watchman cardiac CT he was noted to have acute bilateral segmental/subsegmental pulmonaryemboli as well as patent foramen ovale. B/l lower extremity duplex showed no evidence of DVT. In discussion with neurology it was determined that the benefit of starting anticoagulation (in addition to DAPT) outweighed risk and he was started on a heparin gtt then transitioned to apixaban. He tolerated anticoagulation and was planned for 1 month triple therapy followed by single antiplatelet with apixaban for 11 months as detailed in provider recommendations. #Acute intracranial hemorrhage #Acute embolic stroke suspected due to paradoxical embolism Overnight after cardiac catheterization he described new diplopia and visual field cut and underwentSTAT CT head which showed focal hemorrhage in the region of the left optic tract. Neurology and neurosurgery were consulted and assisted with management. He underwent subsequent MRI brain which revealed this known hemorrhage as well as an additional small area of restricted diffusion in the right occipital lobe consistent with embolic CVA. The cause of his CVA was felt to be a paradoxical embolism given known PE with PFO as well as the fact that there was no observed thrombus in his left atrial appendage on cardiac CT. #Suspected aspiration pneumonia On HD#1 he developed a fever to 38.7 and was noted to have new bibasilar opacities and increased O2 requirement. He was empirically treated with levofloxacin/metronidazole for possible aspiration PNA (given penicillin allergy) and later tolerated a test dose of ceftriaxone and completed 5 days antibiotics with PO cefpodoxime and metronidazole. Vital Signs at Discharge: BP: 108/59, Heart Rate: 74, Temp: 36.6 ??C (97.9 ??F), Resp: 19, BMI (Calculated): 20.27 Height: 177.8 cm (5' 10) (11/29/19 1515) Weight: 62.9 kg (138 lb 10.7 oz) (12/08/19 0600) Functional and Cognitive Status: Ambulatory, mentating at baseline Important Studies and Lab Data: Labs: Last 3 wbc, hgb, hct plt Recent Labs 12/08/19 1239 12/08/19 0043 12/07/19 1602 WBC 9.9* 11.2* 17.4* HGB 13.0* 13.1* 13.5* HCT 40.5 40.5 40.8 PLATELET 214 215 238 Last 3 Lytes Recent Labs 12/08/19 1239 12/08/19 0628 12/08/19 0043 12/07/19 0520 12/06/19 0336 NA -- -- 134* -- 135 136 K 3.9 4.2 4.0 < > 3.8 4.0 CL -- -- 99 -- 101 103 CO2 -- -- 19* -- 20* 19* BUN -- -- 14 -- 14 20 CREATININE -- -- 1.16 -- 0.83 0.88 < > = values in this interval not displayed. Last 3 LFTs Recent Labs 12/08/19 0628 11/29/19 1432 AST 18 257* ALT 13 50 ALKPHOS 64 84 BILITOT 0.4 0.3 BILIDIR 0.1 0.1 Last 3 ProBNP, Trop, CK No results for input(s): CK, TROPONINT, PROBNP in the last 168 hours. Last 3 TFT Recent Labs 12/08/1928 TSH 5.27* Studies: Cardiac catheterization 11/28: Hemodynamics: Left Heart Pressures Resting: Syst Diast EDP a v m Ao 99 55 73 LV 105 15 Coronary Angiography: Dominance: Right Left Main There was mild diffuse (<=25% stenosis) disease of the entire vessel segment of the left main artery. Left Anterior Descending There was mild diffuse (<=25% stenosis) disease of the entire vessel segment of the left anterior descending artery (LAD). The proximal segment of the LAD had mild diffuse (<=25% stenosis) disease. Left Circumflex There was a 50% long segmental stenosis of the mid 1 segment of the left circumflex artery (LCX). The LCX was large. The mid 2 segment of the LCX had a single discrete 80% stenosis. Right Coronary Artery There were multiple discrete 95% stenoses of the proximal segment of the right coronary artery (RCA). The RCA was large. The mid segment of the RCA had moderate diffuse (<=50% stenosis) disease. There also were multiple discrete 90% calcified stenoses of the distal segment of the RCA. There was evidence of thrombus in these lesions. Indication for Intervention: Coronary intervention was indicated for primary therapy for an acute myocardial infarction. The priority for the procedure was Emergent. The NCDR indication for the procedure was STEMI (after successful lytics). STEMI onset was 11/29/2019 at 4:00 AM, estimated. Thrombolytics were administered on 11/29/2019 at 7:30 AM. Intervention Summary: Right Coronary Artery Proximal 95% Stent insertion was performed on the 95% multiple discrete stenosis in the proximal segment of the RCA. This was a de justa lesion. According to the ACC/AHA classification system, this lesion was a type C high risk lesion. Primary prevention of restenosis was the indication for stent insertion. This was the culprit lesion. A guidewire was placed across this lesion. Vessel flow pre intervention was DILLON 3. Lesion length was 12mm. Stent insertion was accomplished through a 6 Fr. JR 4 guide. The lesion was predilated with a 3.00mm balloon with a maximum inflation pressure of 20 atmospheres. A premounted 3.50 x 26 mm Resolute MENDEZ (MACARIO) was deployed with a maximum inflation pressure of 21 atmospheres. Following stent deployment, the lesion was dilated using a 3.75mm NC EUPHORA 20 MM balloon with a maximum inflation pressure of 20 atmospheres. The final outcome was defined as successful. A coronary arteriolar vasodilator was administered as part of the intervention on this lesion. There was no residual stenosis following this intervention. The final DILLON flow was 3. Mid Moderate Diffuse (<=50% Stenosis) Stent insertion was attempted on the moderate diffuse (<=50% stenosis) stenosis in the mid segment of the RCA. This was a de justa lesion. This lesion was designated a type B2 moderate risk lesion based on ACC/AHA classification system. Primary prevention of restenosis was the indication for stent insertion. A guidewire was placed across this lesion. Vessel flow pre intervention was DILLON 3. Lesion length was 15mm. Stent insertion was accomplished through a 6 Fr. JR 4 guide. The lesion was predilated with a 3.50mm NC EUPHORA 20 MM balloon with a maximum inflation pressure of 20 atmospheres. A premounted 3.50 x 30 mm Resolute MENDEZ (MACARIO) was deployed with a maximum inflation pressure of 20 atmospheres. Following stent deployment, the lesion was dilated using a 3.75mm NC EUPHORA 20 MM balloon with a maximum inflation pressure of 20 atmospheres. The final outcome was defined as unsuccessful due to the presence of a significantly decreased distal flow. A coronary arteriolar vasodilator was administered as part of the intervention on this lesion. The residual stenosis following this intervention was 10%. The final DILLON flow was 2. Distal 90% Thrombectomy and stent insertion were attempted on the 90% multiple discrete stenosis in the distal segment of the RCA. This was a de justa lesion. According to the ACC/AHA classification system, this lesion was a type C moderate risk lesion. Primary prevention of restenosis was the indication for stent insertion. A guidewire was placed across this lesion. Vessel flow pre intervention was DILLON 3. Lesion length was 30mm. Thrombectomy was accomplished through a 6 Fr JR 4 guide utilizing a Pronto LP. Stent insertion was accomplished through a 6 Fr. JR 4 guide. The lesion was predilated with a 3.00mm NC EUPHORA 15 MM balloon with a maximum inflation pressure of 14 atmospheres. A premounted 3.00 x 38 mm Resolute MENDEZ (MACARIO) was deployed with a maximum inflation pressure of 20 atmospheres. Following stent deployment, the lesion was dilated using a 3.50mm NC EUPHORA 20 MM balloon with a maximum inflation pressure of 20 atmospheres. The final outcome was defined as unsuccessful due to the presence of a significantly decreased distal flow. A coronary arteriolar vasodilator was administered as part of the intervention on this lesion. The residual stenosis following this intervention was 10%. The final DILLON flow was 2. Conclusions: * Two vessel coronary artery disease (LCX and RCA) * Successful stent insertion of the proximal RCA lesion * Unsuccessful thrombectomy and stent insertion of the distal RCA lesion * Unsuccessful stent insertion of the mid RCA lesion * See Dual Antiplatelet (DAPT) Recommendations above. TTE 11/29: 1. The left ventricular chamber size is [...] is no prior study available for comparison. Results for orders placed or performed during the hospital encounter of 11/29/19 XR Chest One View (Exam End: 11/29/2019 3:08 PM) Impression 1. New right internal jugular pulmonary arterial catheter with its tip projecting over the expected location of the distal interlobar artery. 2. Equivocal tiny right apical pneumothorax. 3. Atelectasis, aspiration, or developing consolidation in the bilateral retrocardiac area. At the time of this report, radiology outreach is attempting to reach the inpatient team to discuss the findings. Thank you for letting us participate in the care of this patient. For questions regarding this report, please contact the number below. Head wo Contrast (Generic) (Exam End: 11/30/2019 10:41 AM) Impression Focal hemorrhage with small amount of adjacent edema projecting in the region of the left optic tract. Thank you for letting us participate in the care of this patient. For questions regarding this report, please contact the number below. Electronically signed by: Angel [facility] ([phone]), at 11/30/2019 12:[address] Head wo Contrast (Generic) (Exam End: 11/30/2019 4:36 PM) Impression Head CT: Stable hemorrhage in the region of the left optic tract. CTA: Negative exam. No abnormal vasculature in the area of hemorrhage. Thank you for letting us participate in the care of this patient. For questions regarding this report, please contact the number below. Electronically signed by: Angel Luis [facility] ([phone]), at 11/30/2019 5:[address] Angiogram [place] [facility] [place] (Exam End: 11/30/2019 4:36 PM) Impression Head CT: Stable hemorrhage in the region of the left optic tract. CTA: Negative exam. No abnormal vasculature in the area of hemorrhage. Thank you for letting us participate in the care of this patient. For questions regarding this report, please contact the number below. Electronically signed by: Angel Luis Barboza MD, [facility] ([phone]), at 11/30/2019 5:04 PM MRI Brain wo Contrast (Exam End: 12/01/2019 7:25 PM) Impression 1. Area of abnormal susceptibility corresponding to known hemorrhage on CT examination in the left mesial temporal lobe/inferior basal ganglia. 2. Single additional punctate focus of hemoglobin degradation products seen in the right periventricular white matter anteriorly. 3. Single punctate focus of restricted diffusion in the right occipital lobe consistent with a small acute infarct, likely embolic Thank you for letting us participate in the care of this patient. For questions regarding this report, please contact the number below. Electronically signed by: Angel Luis Barboza MD, [facility] ([phone]), at 12/01/2019 8:02 PM XR Chest One View (Exam End: 11/30/2019 8:20 PM) Impression Impression: New/ increased bibasilar opacities since 11/29/2019; differential includes bibasilar atelectasis and small effusions vs aspiration, infection. Upper lungs are clear. No pneumothorax is seen. Thank you for letting us participate in the care of this patient. For questions regarding this report, please contact the number below. Head wo Contrast (Generic) (Exam End: 12/01/2019 2:29 PM) Impression 1. Unchanged hemorrhage in the region of the left optic tract with unchanged mild edema. 2. Small lucent lesion within the superior left parietal bone which likely represents a benign hemangioma or venous severino. 3. Dental disease as detailed above. Preliminary report signed by: Silvio Baker at 12/01/2019 3:20 PM I have personally reviewed the image(s) and the resident's interpretation and agree with the findings, Merari Collins at 12/01/2019 3:53 PM Thank you for letting us participate in the care of this patient. For questions regarding this report, please contact the number below. Chest One View (Exam End: 12/02/2019 1:00 PM) Impression Slightly increased small bibasilar pleural effusions and atelectasis. Thank you for letting us participate in the care of this patient. For questions regarding this report, please contact the number below. Cardiac for Morphology & Function (Exam End: 12/04/2019 1:56 PM) Impression Watchman measurements as above. Findings indicate a patent foramen ovale. Bilateral segmental/subsegmental pulmonary arterial emboli are incompletely visualized on this exam. Small bilateral pleural effusions. Findings called by Dr. Maciel Luciano and discussed with Dr. Stevens at 12/04/2019 6:10 PM. I verified that he understood these results. I have personally reviewed the image(s) and the resident's interpretation and agree with the findings, Roselyn Luciano at 12/04/2019 6:16 PM Thank you for letting us participate in the care of this patient. For questions regarding this report, please contact the number below. Brain wwo Contrast (Generic) (Exam End: 12/05/2019 7:59 PM) Impression No significant interval change. Thank you for letting us participate in the care of this patient. For questions regarding this report, please contact the number below. Head wo Contrast (Generic) (Exam End: 12/06/2019 7:01 PM) Impression Unchanged size but mildly decreased density of the intraparenchymal hemorrhage along the course of the left optic tract with unchanged mild edema. Preliminary report signed by: Silvio Baker at 12/06/2019 8:02 PM I have personally reviewed the image(s) and the resident's interpretation and agree with the findings, Merari Collins at 12/06/2019 10:06 PM Thank you for letting us participate in the care of this patient. For questions regarding this report, please contact the number below. Pending Studies and Lab Data: N/A Discharge Conditions/Prognosis: stable Discharge to: home Updated Allergies/ADRs: Allergies Allergen Reactions ??? Penicillins Pt doesn't remember reaction ??? Nifohvh-Wal-Ijr Reductase Inhibitors Stiff neck, upset stomach, back pain Immunizations Given this Hospitalization: There is no immunization history on file for this patient. Discharge Medications: Your Medications New Medications Dose Details AMIOdarone 200 mg Tab Commonly known as: Cordarone; Pacerone Take 2 tablets by mouth 2 times daily for 6 days, THEN 1 tablet daily for 14 days. Start taking on: December 08, 2019 Quantity: 38 tablet Refills: 0 apixaban 5 mg Tab Commonly known as: Eliquis Take 1 tablet by mouth 2 times daily. 5 mg Quantity: 60 tablet Refills: 0 clopidogreL 75 mg Tab Commonly known as: Plavix Take 1 tablet by mouth daily. Start taking on: December 09, 2019 75 mg Quantity: 30 tablet Refills: 0 furosemide 20 mg Tab Commonly known as: Lasix Take 1 tablet by mouth every other day. Start taking on: December 09, 2019 20 mg Quantity: 15 tablet Refills: 0 lisinopriL 2.5 mg Tab Commonly known as: Prinivil;Zestril Take 1 tablet by mouth daily. Start taking on: December 09, 2019 2.5 mg Quantity: 30 tablet Refills: 0 metoprolol succinate XL 25 mg Tablet sr Commonly known as: Toprol-XL Take 0.5 tablets by mouth daily. Start taking on: December 09, 2019 12.5 mg Quantity: 30 tablet Refills: 0 nicotine 14 mg/24 hr Pt24 Commonly known as: NICODERM CQ Change 1 patch on the skin daily as needed. 1 patch Quantity: 28 patch Refills: 0 nitroGLYcerin 0.4 mg Subl Commonly known as: Nitrostat Place 1 tablet under the tongue every 5 minutes as needed for Chest pain. 0.4 mg Quantity: 30 tablet Refills: 0 Continued medications with new dosing Dose Details aspirin EC 81 mg Tbec Take 1 tablet by mouth daily. Pt takes every other day What changed: when to take this 81 mg Quantity: 90 tablet Refills: 3 Continued medications, unchanged Dose Details cholecalciferol (Vitamin D3) 400 unit Tab Commonly known as: Vitamin D3 Take 1,000 Units by mouth every other day. 1,000 Units Refills: 0 Smoking Status at Discharge: Social History Tobacco Use Smoking Status Current Every Day Smoker ??? Packs/day: 0.50 ??? Types: Cigars Instructions Given to Patient at Discharge: Patient Instructions Why you were hospitalized: You had a heart attack. You received clot-busting medications at another hospital and then at [facility] you had a stent placed in a blood vessel in your heart to keep it open. Your heart function was somewhat decreased as a result of the heart attack. You had a small bleed (hemorrhage) in your brain tissue, as well as a stroke caused by a piece of blood clot that traveled to your brain. You went in and out of an abnormal heart rhythm (atrial fibrillation) and needed to start medications to control your heart rate and rhythm. You also were found to have blood clots in your lungs. We believe that you likely had blood clots that began in your legs and traveled to your heart, andfrom your heart passed into your lungs as well as through a small hole that many people have in their hearts (patent foramen ovale) into your brain. You were started on blood thinners for the blood clots as well as other medications to support your heart. Because you have had reactions to statins in the past, we are referring you to the lipid clinic to consider a different type of cholesterol medication (PCSK-9 inhibitor) to help prevent heart attacks. Discharge Instructions: You had a cardiac catheterization. This means that you shouldn't lift anything greater than 7 lbs for the next week and nothing greater than 20 lbs for 2 weeks. After that time you may go back to regular activity and work. Call your doctor if you develop pain, swelling, bleeding or redness in the area where you had catheters. Also, call your doctor if you develop sudden chest pain or shortness of breath, especially chest pain that does not go away with nitroglycerin. It is important that you take your aspirin 81mg daily forever and plavix 75mg daily for 1 year without missing doses. Call your doctor if: Chest pain, shortness of breath, pain or swelling in legs occurs, lightheadedness, dizziness, low blood pressure or heart rate or any other concerning symptom. New Medications: Apixaban 5 mg twice a day- This is a blood thinner for the blood clots in your lungs. Take this indefinitely until instructed to stop. Aspirin 81 mg daily - This medication will help prevent clots from forming in your blood, which helps protect the arteries of your heart. TAKE THIS FOR ONE MONTH AND THEN STOP. Your computer hardware engineer may tell you to start this medication again after one year. Clopidogrel (Plavix) 75 mg daily - This medication will help prevent clots from forming in your blood, which will help protect the stent that was placed in your heart vessel. TAKE THIS FOR ONE YEAR ANDTHEN DISCUSS WITH YOUR CO FOUNDER AND CTO WHETHER TO STOP. Amiodarone 400mg twice daily for 6 days, then 200mg once daily- This helps keep your heart in a normal rhythm. You will need periodic checks of labs and chest x-ray to make sure you are not developing complications of this medication Metoprolol succinate 12.5 mg daily - This medication will help lower your blood pressure, and also protects the muscle of the heart Lisinopril 2.5 mg daily- This medication will help lower your blood pressure, which helps the heart pump well Furosemide 20mg every other day - This medication helps prevent fluid from building up Nitroglycerin 0.4mg as needed - This medication will help relieve anginal chest pain. You should ONLY take it if you feel chest pain similar to what you felt before your heart attack. You may repeat this every 5 minutes for a total of 3 doses. Notify your provider if chest pain is not relieved with nitroglycerin. Do not take nitroglycerin within 48-72 hours of taking phosphodiesterase (PDE-5) inhibitors such as sildenafil (Viagra), tadalafil (Cialis) or vardenafil (Levitra). Nicotine Patch as needed for smoking cessation. Anti-coagulation follow up: Your primary care provider and computer hardware engineer will manage your blood thinner (apixaban). You do not need lab monitoring of this medication. Diet: Please consume a healthy diet low in cholesterol Follow up Appointments: 12/10/2019 at 3:10PM with PCP Angel Luis Lott Future Appointments Date Time Provider Department Center 12/23/2019 1:30 PM Alfreda Salas APRN [address] 12/26/2019 9:40 AM Merlin Sanchez MD [facility] CARD [facility]A [facility] 12/30/2019 3:40 PM Gretchen Yoon MD [facility] 4A [facility] Future Appointments and Orders Future Appointments and Orders Future Appointments Provider Department Dept Phone 12/23/2019 1:30 PM Alfreda Salas APRN Neurosurgery at [facility] Arrive at: Home [phone] Please do not come in for this visit. Your provider will call you at the number you provided. 12/26/2019 9:40 AM Merlin Sanchez MD Cardiology at [facility] Arrive at: Home [phone] Please do not come in for this visit. Your provider will call you at the number you provided. 12/30/2019 3:40 PM Gretchen Yoon MD Cardiology at [facility] Arrive at: Home [phone] Please do not come in for this visit. Your provider will call you at the number you provided. Future Orders Complete By Expires Referral to Cardiac Rehab [[id number] Custom] As directed Process Instructions: If no progress note charted, please enter Clinical details in comments. Scheduling Instructions: Questions: My question or request is: STEMI. Cardiac rehab at [facility] Referral to [facility] [REF43 Custom] As directed Process Instructions: If no progress note charted, please enter Clinical details in comments. Scheduling Instructions: Questions: My question or request is: patient with inferior stemi with history of statin allergy (rash) - please evaluate for psck9 inhibitor. Referral to Home Health - at DISCHARGE [QLI4485 CPT(R)] As directed Process Instructions: Scheduling Instructions: Comments: DOCUMENTATION FOR VNA SERVICES PATIENT'S LOCATION: [address] [id number] (home) Pai Gow Dealer's Name: Self In discussion with the attending physician, it is certified that this patient is under his/her care and that MD, or an BEHAVIORAL ASSISTANT, GENERAL SALES MANAGER, or PA who is working directly with him/her, had a tkbe-os-jzdi encounter that meets the physician iziq-mw-qvoi encounter requirements with this patient on 12/07/2019. The encounter with the patient was in whole, or in part, for the following medical condition, which is the primary reason for home health care services: 74 year old M with a PMH of PAD, HLD, Active Tobacco Use & HTN who was admitted for inferior STEMI [s/p MACARIO to RCA x3, residual LCx disease - non-culprit artery; s/p lytics] with clinical course complicated by RV failure manifesting as cardiogenic shock In discussion with the provider, it is certified that, based on his/her findings, the following homeservices are medically necessary. HOME CARE ORDERS: RN ORDERS: Assess wound or incision, vital signs, cardiopulmonary status, nutrition, hydration, elimination, meds effectiveness and management. Reinforce education on health issues. PT ORDERS: Continue rehab for endurance, gait stability and strength with mobility and transfers. Home safety evaluation. Home exercise program if appropriate. OT ORDERS: Assess and continue rehabilitation for managing ADLs. HOME HEALTH CARE AGENCY: [facility], PHONE: [phone] FAX: [phone] Start of care: 24-48 hours after hospital discharge In discussion with the attending physician, it is certified that the clinical findings support that this patient is homebound because absences from home require considerable and taxing effort due to: dyspnea at rest/with ambulation; unable to ambulate community surfaces or distances unassisted due to pain, LE weakness or decreased balance and risk for falls; deconditioned frail elder with poor ambulation tolerance, requires assistance to leave home; unsteady gait, poor balance, requiring assistive devices and/or assistance of another Please note that any additional orders needs or changes will need to be obtained from this patient'sPCP: France Lam MD [address] / [place] [address] All A agencies which cover the area of patient's residence have been reviewed, either verbally or in writing, and patient/family have chosen the home health care agency noted. Questions: Agency name and contact information: [facility] Patient location post discharge: Home What services are requested: Registered Nurse Physical Therapy Occupational Therapy Start date: Responsible MD post discharge contact info: PCP Your PCP: France Lam MD [phone] For questions regarding this document or issues relating to this hospitalization on the Cardiology Service, please contact your inpatient physician through the [facility] Rib [facility] . Issues after hours and on weekends will be handled by the Continuity Tester on-call. 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 - Lifestyle modifications should include: taking all medications as prescribed, smoking cessation orstaying away from others who are smoking to avoid second hand smoke, limiting alcohol intake, maintaining a normal/healthy weight, adhering to a healthy diet (low-fat, low-sodium, high intake of fresh fruits and vegetables, limiting red meat), and engaging in regular physical activity. - You are at a higher risk for bleeding while being Plavix and Aspirin; however, these medications are important for protecting your cardiac stents. Please call 911 or go to your nearest Emergency Department if you notice worsening in your vision or any of the following symptoms: ??? Call 911 or your local EMS if you have sudden weakness or numbness in your face or one of your limbs, slurred speech, loss of vision, or difficulty speaking. It is important to seek medical attention as soon as possible, as these symptoms could be related to a new stroke. Know Your Numbers! Blood Pressure BP Readings from Last 3 Encounters: 12/08/19 108/59 05/13/13 118/70 HA1C Lab Results Component Value Date HA1C 6.3 (H) 11/30/2019 Cholesterol Lab Results Component Value Date CHLPL 195 11/30/2019 HDL 32 11/30/2019 CHOLHDL 6.1 11/30/2019 TRIG 93 11/30/2019 LDLCHOL 144 11/30/2019 LDLDIRECT 156 11/30/2019 Below is an explanation of each of the cholesterol test results. Total cholesterol: This test is best when below 200. It can be improved primarily by a low fat diet. HDL (good cholesterol): The higher the better. It is best when above 50. It is primarily geneticallydetermined but can be increased with exercise. LDL (bad cholesterol): this test is best when below 130 (or below 100 if you have heart disease or below 70 if you have had a stroke or TIA). It can be lowered by a low fat diet. Triglycerides: This test is best when below 180. It can be lowered by a low fat diet, avoidance of sweets and weight loss. ??? Follow-up: ??? Neurology: You will have a follow-up appointment in the neurology clinic at [facility]. See below for the appointment time. If you do not have an appointment, you will be called with a time/date for this appointment. ??? Primary Care Provider: Please follow up with your Primary Care Provider within one to 2 weeks ofdischarge. General Instructions None Future Appointments and Orders Future Appointments and Orders Future Appointments Provider Department Dept Phone 12/23/2019 1:30 PM Alfreda Salas APRN Neurosurgery at [facility] Arrive at: Home [phone] Please do not come in for this visit. Your provider will call you at the number you provided. 12/26/2019 9:40 AM Merlin Sanchez MD Cardiology at [facility] Arrive at: Home [phone] Please do not come in for this visit. Your provider will call you at the number you provided. 12/30/2019 3:40 PM Gretchen Yoon MD Cardiology at [facility] Arrive at: Home [phone] Please do not come in for this visit. Your provider will call you at the number you provided. Future Orders Complete By Expires Referral to Cardiac Rehab [QVA202 Custom] As directed Process Instructions: If no progress note charted, please enter Clinical details in comments. Scheduling Instructions: Questions: My question or request is: STEMI. Cardiac rehab at [facility] Referral to Cholesterol Treatment Center [REF43 Custom] As directed Process Instructions: If no progress note charted, please enter Clinical details in comments. Scheduling Instructions: Questions: My question or request is: patient with inferior stemi with history of statin allergy (rash) - please evaluate for psck9 inhibitor. Referral to Home Health - at DISCHARGE [[id number] CPT(R)] As directed Process Instructions: Scheduling Instructions: Comments: DOCUMENTATION FOR VNA SERVICES PATIENT'S LOCATION: [address] [phone] (home) Pai Gow Dealer's Name: Self In discussion with the attending physician, it is certified that this patient is under his/her care and that MD, or an BEHAVIORAL ASSISTANT, GENERAL SALES MANAGER, or PA who is working directly with him/her, had a edjq-yg-cpyx encounter that meets the physician bjaj-ll-ocxg encounter requirements with this patient on 12/07/2019. The encounter with the patient was in whole, or in part, for the following medical condition, which is the primary reason for home health care services: 74 year old M with a PMH of PAD, HLD, Active Tobacco Use & HTN who was admitted for inferior STEMI [s/p MACARIO to RCA x3, residual LCx disease - non-culprit artery; s/p lytics] with clinical course complicated by RV failure manifesting as cardiogenic shock In discussion with the provider, it is certified that, based on his/her findings, the following homeservices are medically necessary. HOME CARE ORDERS: RN ORDERS: Assess wound or incision, vital signs, cardiopulmonary status, nutrition, hydration, elimination, meds effectiveness and management. Reinforce education on health issues. PT ORDERS: Continue rehab for endurance, gait stability and strength with mobility and transfers. Home safety evaluation. Home exercise program if appropriate. OT ORDERS: Assess and continue rehabilitation for managing ADLs. HOME HEALTH CARE AGENCY: [facility], PHONE: [phone] FAX: [phone] Start of care: 24-48 hours after hospital discharge In discussion with the attending physician, it is certified that the clinical findings support that this patient is homebound because absences from home require considerable and taxing effort due to: dyspnea at rest/with ambulation; unable to ambulate community surfaces or distances unassisted due to pain, LE weakness or decreased balance and risk for falls; deconditioned frail elder with poor ambulation tolerance, requires assistance to leave home; unsteady gait, poor balance, requiring assistive devices and/or assistance of another Please note that any additional orders needs or changes will need to be obtained from this patient'sPCP: France Lam MD [address] / [facility] [address] All A agencies which cover the area of patient's residence have been reviewed, either verbally or in writing, and patient/family have chosen the home health care agency noted. Questions: Agency name and contact information: [facility] Patient location post discharge: Home What services are requested: Registered Nurse Physical Therapy Occupational Therapy Start date: Responsible MD post discharge contact info: PCP Discharge References/Attachments Atrial Fibrillation (Tunisian) Cardiac Rehabilitation (Tunisian) Heart Failure (Tunisian) Heart Failure: Limiting Sodium (Tunisian) Hemorrhagic Stroke: General Info (Tunisian) Smoking: Stopping (Tunisian) Stroke Rehabilitation: General Info (Tunisian) Pulmonary Embolism (Tunisian) Riki Stevens MD PGY-3, Internal Medicine Cardiology S2, #[id number] Associated attestation - Paris Dodd MD - 12/09/2019 4:44 PM EDT Cardiology Attending Discharge Addendum I was the assigned attending computer hardware engineer for this clinical encounter. For the purposes of billing, I was directly involved in the clinical decision making and the plan of care is reasonable. Please see the full discharge note below for full details. 74 year old M with a PMH of PAD, HLD, Active Tobacco Use & HTN who was admitted for inferior STEMI [s/p MACARIO to RCA x3, residual LCx disease - non-culprit artery; s/p lytics] with clinical course complicated by RV failure manifesting as cardiogenic shock, for which ionotropic support to be initiated today; additional complications include novel onset, paroxysmal atrial fibrillation [[id number]: 5] & L-sided diplopia with potential hemineglect for which CVA evaluation to be pursued. Noted to have b/l PE and PFO on watchman CT. Started on heparin with CT imaging given recent bleed. Tolerated it well. Discharged on apixiban. Discharged on DAPT, after 1 month, would drop ASA and continue on Plavix and apixaban. He was discharged on Lasix 20 mg every other day. He had atrial fibrillation/atrial flutter while in hospital which was controlled with amiodarone. He will complete an oral load of 6 g and then continue on [address] He will need baseline pulmonary function test. Baseline thyroid and liver function test were normal here. He was discharged on a low-dose of metoprolol succinate 12.5 mg daily for his coronary artery disease. He was started on lisinopril 2.5 mg daily as well. Given his inability to tolerate a statin, he was referred to the lipid clinic for consideration of a PCSK9 inhibitor. Given all the new medication changes at discharge, we recommend a basic metabolic panel and follow-up with primary care physician within 1 week. Please do not hesitate to reach out to me directly with any additional questions regarding this patient's admission or hospital course. My contact information: Paris Matt MD MPH [place] [phone] (office); Pager #[phone] Email: [email or web address] documented in this encounter Discharge Instructions Patient InstructionsFiRiki de jesus MD - 12/02/2019 9:56 AM EDT Images from the original note were not included. Why you were hospitalized: You had a heart attack. You received clot-busting medications at another hospital and then at [facility] you had a stent placed in a blood vessel in your heart to keep it open. Your heart function was somewhat decreased as a result of the heart attack. You had a small bleed (hemorrhage) in your brain tissue, as well as a stroke caused by a piece of blood clot that traveled to your brain. You went in and out of an abnormal heart rhythm (atrial fibrillation) and needed to start medications to control your heart rate and rhythm. You also were found to have blood clots in your lungs. We believe that you likely had blood clots that began in your legs and traveled to your heart, andfrom your heart passed into your lungs as well as through a small hole that many people have in their hearts (patent foramen ovale) into your brain. You were started on blood thinners for the blood clots as well as other medications to support your heart. Because you have had reactions to statins in the past, we are referring you to the lipid clinic to consider a different type of cholesterol medication (PCSK-9 inhibitor) to help prevent heart attacks. Discharge Instructions: You had a cardiac catheterization. This means that you shouldn't lift anything greater than 7 lbs for the next week and nothing greater than 20 lbs for 2 weeks. After that time you may go back to regular activity and work. Call your doctor if you develop pain, swelling, bleeding or redness in the area where you had catheters. Also, call your doctor if you develop sudden chest pain or shortness of breath, especially chest pain that does not go away with nitroglycerin. It is important that you take your aspirin 81mg daily forever and plavix 75mg daily for 1 year without missing doses. Call your doctor if: Chest pain, shortness of breath, pain or swelling in legs occurs, lightheadedness, dizziness, low blood pressure or heart rate or any other concerning symptom. New Medications: Apixaban 5 mg twice a day- This is a blood thinner for the blood clots in your lungs. Take this indefinitely until instructed to stop. Aspirin 81 mg daily - This medication will help prevent clots from forming in your blood, which helps protect the arteries of your heart. TAKE THIS FOR ONE MONTH AND THEN STOP. Your computer hardware engineer may tell you to start this medication again after one year. Clopidogrel (Plavix) 75 mg daily - This medication will help prevent clots from forming in your blood, which will help protect the stent that was placed in your heart vessel. TAKE THIS FOR ONE YEAR ANDTHEN DISCUSS WITH YOUR CO FOUNDER AND CTO WHETHER TO STOP. Amiodarone 400mg twice daily for 6 days, then 200mg once daily- This helps keep your heart in a normal rhythm. You will need periodic checks of labs and chest x-ray to make sure you are not developing complications of this medication Metoprolol succinate 12.5 mg daily - This medication will help lower your blood pressure, and also protects the muscle of the heart Lisinopril 2.5 mg daily- This medication will help lower your blood pressure, which helps the heart pump well Furosemide 20mg every other day - This medication helps prevent fluid from building up Nitroglycerin 0.4mg as needed - This medication will help relieve anginal chest pain. You should ONLY take it if you feel chest pain similar to what you felt before your heart attack. You may repeat this every 5 minutes for a total of 3 doses. Notify your provider if chest pain is not relieved with nitroglycerin. Do not take nitroglycerin within 48-72 hours of taking phosphodiesterase (PDE-5) inhibitors such as sildenafil (Viagra), tadalafil (Cialis) or vardenafil (Levitra). Nicotine Patch as needed for smoking cessation. Anti-coagulation follow up: Your primary care provider and computer hardware engineer will manage your blood thinner (apixaban). You do not need lab monitoring of this medication. Diet: Please consume a healthy diet low in cholesterol Follow up Appointments: 12/10/2019 at 3:10PM with PCP Angel Luis Lott Future Appointments Date Time Provider Department Center 12/23/2019 1:30 PM Alfreda Salas APRN [facility] [id number] [facility] [facility] 12/26/2019 9:40 AM Merlin Sanchez MD [facility] 12/30/2019 3:40 PM Gretchen Yoon MD [facility] Future Appointments and Orders Future Appointments and Orders Future Appointments Provider Department Dept Phone 12/23/2019 1:30 PM Alfreda Salas APRN Neurosurgery at [facility] [place]: Home [phone] Please do not come in for this visit. Your provider will call you at the number you provided. 12/26/2019 9:40 AM Merlin Sanchez MD Cardiology at [facility] [place]: Home [phone] Please do not come in for this visit. Your provider will call you at the number you provided. 12/30/2019 3:40 PM Gretchen Yoon MD [place]iology at [facility] [place] [phone] Please do not come in for this visit. Your provider will call you at the number you provided. Future Orders Complete By Expires Referral to Cardiac Rehab [[id number] Custom] As directed Process Instructions: If no progress note charted, please enter Clinical details in comments. Scheduling Instructions: Questions: My question or request is: STEMI. Cardiac rehab at [facility] Referral to [facility] [REF43 Custom] As directed Process Instructions: If no progress note charted, please enter Clinical details in comments. Scheduling Instructions: Questions: My question or request is: patient with inferior stemi with history of statin allergy (rash) - please evaluate for psck9 inhibitor. Referral to Home Health - at DISCHARGE [[id number] CPT(R)] As directed Process Instructions: Scheduling Instructions: Comments: DOCUMENTATION FOR [facility] SERVICES PATIENT'S LOCATION: [address] [address] (home) Pai Gow Dealer's Name: Self In discussion with the attending physician, it is certified that this patient is under his/her care and that MD, or an BEHAVIORAL ASSISTANT, GENERAL SALES MANAGER, or PA who is working directly with him/her, had a [id number] encounter that meets the physician [id number] encounter requirements with this patient on 12/07/2019. The encounter with the patient was in whole, or in part, for the following medical condition, which is the primary reason for home health care services: 74 year old M with a PMH of PAD, HLD, Active Tobacco Use & HTN who was admitted for inferior STEMI [s/p MACARIO to RCA x3, residual LCx disease - non-culprit artery; s/p lytics] with clinical course complicated by RV failure manifesting as cardiogenic shock In discussion with the provider, it is certified that, based on his/her findings, the following homeservices are medically necessary. HOME CARE ORDERS: RN ORDERS: Assess wound or incision, vital signs, cardiopulmonary status, nutrition, hydration, elimination, meds effectiveness and management. Reinforce education on health issues. PT ORDERS: Continue rehab for endurance, gait stability and strength with mobility and transfers. Home safety evaluation. Home exercise program if appropriate. OT ORDERS: Assess and continue rehabilitation for managing ADLs. HOME HEALTH CARE AGENCY: [facility], PHONE: [phone] FAX: [phone] Start of care: 24-48 hours after hospital discharge In discussion with the attending physician, it is certified that the clinical findings support that this patient is homebound because absences from home require considerable and taxing effort due to: dyspnea at rest/with ambulation; unable to ambulate community surfaces or distances unassisted due to pain, LE weakness or decreased balance and risk for falls; deconditioned frail elder with poor ambulation tolerance, requires assistance to leave home; unsteady gait, poor balance, requiring assistive devices and/or assistance of another Please note that any additional orders needs or changes will need to be obtained from this patient'sPCP: France Lam MD [address] / [place] [address] All A agencies which cover the area of patient's residence have been reviewed, either verbally or in writing, and patient/family have chosen the home health care agency noted. Questions: Agency name and contact information: [facility] Patient location post discharge: Home What services are requested: Registered Nurse Physical Therapy Occupational Therapy Start date: Responsible MD post discharge contact info: PCP Your PCP: France Lam MD [phone] For questions regarding this document or issues relating to this hospitalization on the Cardiology Service, please contact your inpatient physician through the [facility] . Issues after hours and on weekends will be handled by the Continuity Tester on-call. 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 - Lifestyle modifications should include: taking all medications as prescribed, smoking cessation orstaying away from others who are smoking to avoid second hand smoke, limiting alcohol intake, maintaining a normal/healthy weight, adhering to a healthy diet (low-fat, low-sodium, high intake of fresh fruits and vegetables, limiting red meat), and engaging in regular physical activity. - You are at a higher risk for bleeding while being Plavix and Aspirin; however, these medications are important for protecting your cardiac stents. Please call 911 or go to your nearest Emergency Department if you notice worsening in your vision or any of the following symptoms: ??? Call 911 or your local EMS if you have sudden weakness or numbness in your face or one of your limbs, slurred speech, loss of vision, or difficulty speaking. It is important to seek medical attention as soon as possible, as these symptoms could be related to a new stroke. Know Your Numbers! Blood Pressure BP Readings from Last 3 Encounters: 12/08/19 108/59 05/13/13 118/70 HA1C Lab Results Component Value Date HA1C 6.3 (H) 11/30/2019 Cholesterol Lab Results Component Value Date CHLPL 195 11/30/2019 HDL 32 11/30/2019 CHOLHDL 6.1 11/30/2019 TRIG 93 11/30/2019 LDLCHOL 144 11/30/2019 LDLDIRECT 156 11/30/2019 Below is an explanation of each of the cholesterol test results. Total cholesterol: This test is best when below 200. It can be improved primarily by a low fat diet. HDL (good cholesterol): The higher the better. It is best when above 50. It is primarily geneticallydetermined but can be increased with exercise. LDL (bad cholesterol): this test is best when below 130 (or below 100 if you have heart disease or below 70 if you have had a stroke or TIA). It can be lowered by a low fat diet. Triglycerides: This test is best when below 180. It can be lowered by a low fat diet, avoidance of sweets and weight loss. ??? Follow-up: ??? Neurology: You will have a follow-up appointment in the neurology clinic at [facility]. See below for the appointment time. If you do not have an appointment, you will be called with a time/date for this appointment. ??? Primary Care Provider: Please follow up with your Primary Care Provider within one to 2 weeks ofdischarge. AttachmentsThe following attachments cannot be sent through Care Everywhere. Atrial Fibrillation (Tunisian)Cardiac Rehabilitation (Tunisian)Heart Failure (Tunisian)Heart Failure: Limiting Sodium (Tunisian)Hemorrhagic Stroke: General Info (Tunisian)Smoking: Stopping (Tunisian)Stroke Rehabilitation: General Info (Tunisian)Pulmonary Embolism (Tunisian)documented in this encounter Medications at Time of Discharge Medication Sig Dispensed Refills Start Date End Date clopidogreL (Plavix) 75 mg Take 1 tablet by 30 tablet 0 03/2020 Tablet mouth daily. furosemide (Lasix) 20 mg Take 1 tablet by 15 tablet 0 12/08 Tablet mouth every other day. lisinopriL Take 1 tablet by 30 tablet 0 12/09/2019 (Prinivil;Zestril) 2.5 mg mouth daily. Tablet metoprolol succinate XL Take 0.5 tablets by 30 tablet 0 03/2020 (Toprol-XL) 25 mg Tablet mouth daily. Sustained Release 24 hr nitroGLYcerin (Nitrostat) Place 1 tablet 30 tablet 0 2019 0.4 mg Tablet, Sublingual under the tongue every 5 minutes as needed for Chest pain. apixaban (Eliquis) 5 mg Take 1 tablet by 60 tablet 0 2019 Tablet mouth 2 times daily. cholecalciferol, Vitamin Take 2,000 Units by 0 D3, 50 mcg (2,000 unit) mouth every other Tablet day. AMIOdarone (Cordarone; Take 2 tablets by 38 tablet 0 201912/22/2019 Pacerone) 200 mg Tablet mouth 2 times daily for 6 days, THEN 1 tablet daily for 14 days. nicotine (NICODERM CQ) 14 Change 1 patch on 28 patch 0 01/202003/11/2020 mg/24 hr Patch 24 hr the skin daily as needed. aspirin EC 81 mg Tablet, Take 1 tablet by 90 tablet 3 12/0712/30/2019 Delayed Release (E.C.) mouth daily. Pt takes every other day documented as of this encounter Progress Notes Darrell Glasgow MD - 12/08/2019 4:11 PM EDT Cardiology Day of Discharge Note The patient was seen and examined on rounds. Vital signs were stable, a thorough physical exam was conducted, and the patients most recent lab values were reviewed. Last value Range last 24 hrs Temperature Temp: 36.6 ??C (97.9 ??F) Temp: [36.3 ??C (97.3 ??F)-36.6 ??C (97.9 ??F)] Heart Rate Heart Rate: 74 Heart Rate: [59-74] Blood Pressure BP: 108/59 BP: (95-119)/(57-68) Respiratory Rate Resp: 19 Resp: [16-25] SpO2 SpO2: 95 % SpO2: [93 %-95 %] GEN: Alert, oriented, not in acute distress. HEENT: AT/NC, PERRL, EOMI, anicteric. MMM. Neck is supple, without LAD. CV: Normal rate, regular rhythm. Normal S1/S2, without M/R/G. No JVD. Radial and DP pulses 2+ bilaterally. PULM: Lungs clear to auscultation and percussion bilaterally. No increased WOB. ABD: Soft, nontender, nondistended, no masses. Normo-active bowel sounds. No hepatosplenomegaly. EXT: WWP without edema, cyanosis, or clubbing. SKIN: Warm and dry without rashes or lesions. NEURO: A & O x3. CN II-XII intact and symmetric, deficient in vision (blurriness) as noted previously currently stable. No other focal deficits appreciated. Assessment/Plan: Medications were reviewed, and a discharge plan was finalized. IV access was removed, and the patient was provided with educational material prior to discharge. The patient was discharged in stable condition. Please see the discharge summary (12/08/2019) for a comprehensive assessment and plan. Amaya Anderson RN - 12/08/2019 3:59 PM EDT Reviewed d/c summary with pt. He denies questions and concerns at the moment. Telemetry and IVs d/michael. D/michael to personal vehicle. Discharge summary faxed to A. Vikash Rodriguez - 12/08/2019 10:59 AM EDT Nutrition Services Note - Low Nutrition Acuity Angel Luis Salinas is a 74 y.o. male Reason for intervention: hospital day 9 Nutrition Plan: Patient is feeling better today and reported a good appetite. Per patient he followsa low sodium restriction at home with the help of his . Educational Material Guidelines for a Heart Healthy Lifestyle provided. Per patient his UBW is in between 130 - 140 Lbs. Encouraged good PO intake, adding a good source of protein with all meals. Monitor weight. Vitamin D3 noted. Nutrition will continue to monitor and follow up as needed. Active Orders Diet Cardiac diet Frequency: Effective Now Number of Occurrences: Until Specified Admit Weight: 64.1 kg Estimated body mass index is 19.9 kg/m?? as calculated from the following: Height as of 12/05/19: 177.8 cm (5' 10). Weight as of this encounter: 62.9 kg (138 lb 10.7 oz). Wt Readings from Last 5 Encounters: 12/08/19 62.9 kg (138 lb 10.7 oz) 12/05/19 64.3 kg (141 lb 12.1 oz) 11/30/19 64.1 kg (141 lb 5 oz) 05/13/13 59.4 kg (131 lb) Weight loss: none Appetite: Fair (25%-50%) Food allergies:no known food allergies Chewing/Swallowing difficulty: will arrange to send cut up foods Nausea/Vomiting: no nausea and no vomiting Last Bowel Movement: 12/08/19 Patient education / questions: all nutrition related questions answered at this time Educational Material provided. Nutrition services to follow weekly through hospital course unless consulted in the interim. Vikash Rodriguez Pager: [phone] Paris Dodd MD - 12/08/2019 8:57 AM EDT Cardiology Service Attending Daily Progress Note Patient: Angel Luis Salinas : 1945 Date of Admission: 11/29/2019 Reason for Admission: AMI/stroke LOS: 9 Please see today's progress note from Dr/NAMITA Aranda for full details but in brief: Interval Events: Had Afib/flutter with RVR at 140-150's Still on IV amio load HR 60's this AM, BP 110's/60's Current Medications: Scheduled Meds: ??? furosemide 20 mg Oral Daily ??? ezetimibe 10 mg Oral Daily ??? aspirin 81 mg Oral Daily ??? nicotine 1 patch Transdermal Daily And ??? Patch Verification 1 patch Transdermal BID And ??? nicotine 1 patch Transdermal Daily ??? melatonin 3 mg Oral Nightly ??? clopidogreL 75 mg Oral Daily ??? cholecalciferol (Vitamin D3) 1,000 Units Oral Daily ??? sodium chloride 0.9 % (flush) 5 mL Intravenous BID Continuous Infusions: ??? AMIOdarone (CORDARONE) 450 mg in non-PVC dextrose 5% 250 mL infusion 0.5 mg/min (12/08/19 0506) ??? heparin 1,100 Units/hr (12/07/19 1220) PRN Meds:.metoproloL, heparin (porcine) AND heparin, polyethylene glycol (MIRALAX)oral powder, diphenhydrAMINE, potassium chloride ER OR potassium chloride ER, acetaminophen, nitroGLYcerin, sodium chloride 0.9 % (flush), lidocaine Home Medications: No current facility-administered medications on file prior to encounter. Current Outpatient Medications on File Prior to Encounter Medication Sig Dispense Refill ??? cholecalciferol, Vitamin D3, 400 unit tablet Take 1,000 Units by mouth daily. ??? aspirin 81 mg EC tablet Take 81 mg by mouth daily. Pt takes every other day ??? Red Yeast Rice Extract 600 mg Cap Take by mouth daily. ??? niacin (NIASPAN ER) 500 mg ER tablet Take 500 mg by mouth 2 times daily (with meals). Vitals: Last value Range last 24 hrs Temperature Temp: 36.6 ??C (97.8 ??F) Temp: [36.3 ??C (97.3 ??F)-36.6 ??C (97.8 ??F)] Heart Rate Heart Rate: 68 Heart Rate: [59-178] Blood Pressure BP: 119/68 BP: (76-119)/(50-85) Respiratory Rate Resp: 20 Resp: [14-25] SpO2 SpO2: 95 % SpO2: [93 %-99 %] Weight: Patient Vitals for the past 168 hrs: Weight 12/08/19 0600 62.9 kg (138 lb 10.7 oz) 12/07/19 0350 63.6 kg (140 lb 3.4 oz) 12/06/19 0500 64.2 kg (141 lb 8.6 oz) 12/05/19 0606 64.3 kg (141 lb 12.1 oz) 12/04/19 0456 65.7 kg (144 lb 13.5 oz) 12/03/19 0341 66.5 kg (146 lb 9.7 oz) 12/02/19 0500 68.1 kg (150 lb 2.1 oz) Weight change: -0.7 kg (-1 lb 8.7 oz) In/Out: Intake/Output Summary (Last 24 hours) at 12/08/2019 0857 Last data filed at 12/08/2019 0852 Gross per 24 hour Intake 370 ml Output 1550 ml Net -1180 ml Physical Exam: General: NAD Neck: JVP <10 cmH20 Cardiac: Irr/irr Chest: CTAB Abdomen: Soft NT ND, +BS Extremities: WWP w/ no sig edema Neuro: AxOx3 Skin: No rashes observed Labs: WBC 17-->11 134/4/14/1.16 Relevant Cardiac Tests: TTE: 1. The left ventricular chamber size is [...] is no prior study available for comparison. LHC: Left Main There was mild diffuse (<=25% stenosis) disease of the entire vessel segment of the left main artery. Left Anterior Descending There was mild diffuse (<=25% stenosis) disease of the entire vessel segment of the left anterior descending artery (LAD). The proximal segment of the LAD had mild diffuse (<=25% stenosis) disease. Left Circumflex There was a 50% long segmental stenosis of the mid 1 segment of the left circumflex artery (LCX). The LCX was large. The mid 2 segment of the LCX had a single discrete 80% stenosis. Right Coronary Artery There were multiple discrete 95% stenoses of the proximal segment of the right coronary artery (RCA). The RCA was large. The mid segment of the RCA had moderate diffuse (<=50% stenosis) disease. There also were multiple discrete 90% calcified stenoses of the distal segment of the RCA. There was evidence of thrombus in these lesions. Assessment: 74 year old M with a PMH of PAD, HLD, Active Tobacco Use & HTN who was admitted for inferior STEMI [s/p MACARIO to RCA x3, residual LCx disease - non-culprit artery; s/p lytics] with clinical course complicated by RV failure manifesting as cardiogenic shock, for which ionotropic support to be initiated today; additional complications include novel onset, paroxysmal atrial fibrillation [[id number]: 5] & L-sided diplopia with potential hemineglect for which CVA evaluation to be pursued. Noted to have b/l PE and PFO on watchman CT yesterday. Not AC d/t recent stroke. Plan: 1. Continue DAPT - will d/c ASA in 1 month if he goes out on triple therapy 2. Decrease lasix to 20mg QOD 3. Complete Amio load orally - load 6mg, 200mg QD 4. Apixiban 5mg BID today 5. Start metop succinate 12.5mg QD 6. Start lisinopril 2.5mg QD Follow up: - Smoking cessation - Late PM dispo - BMP in 1 week - PCK-9 inhibitor This visit lasted 35 minutes, of which 30 minutes were spent in direct discussion and counseling with the patient. Pairs Matt MD MPH [facility] Attending 12/08/2019, 8:57 AM Amaya Anderson RN - 12/07/2019 7:41 PM EDT Patient is A&Ox4. Neuro checks intact throughout the shift. Bursts of rapid rates more frequent throughout the shift. Symptomatic with rates in 180s. Team to the bedside to assess. Life safety to the bedside. IV metoprolol administered, pt still in and out of rapid rhythm. Amiodarone bolus and gtt initiated. No s/s of infiltration at the IV site. Heparin gtt maintained per AUG. NSR after initiating amiodarone. Call churchill in reach, will continue to monitor. Darrell Glasgow MD - 12/07/2019 1:04 PM EDT Clarification of Code Status Context: at approximately 12:30pm patient became tachycardic to 170s, hypotensive with SBP in 70s. Patient intermittently went in and out of flutter with rvr, with persistent hypotension and dizziness. Assessment: On continuous EKG has very regular rhythm with depressed saw-tooth like p waves in inferior leads, ventricular rate at 150s s/o atrial flutter w/ rvr. Plan: Patient received 5mg of IV metop (already receiving 100mg of Toprol twice daily) without success. Clarification of code status with patient as he is a DNR entails. Patient agreed to cardioconversion and/or temporary pacemaker if it's deemed necessary to control his heart rate. We will start on rhythm control with amiodarone (loading dose 150mg IV - following by IV drip) as well as repleting magnesium. Darrell Glasgow MD Vikash Rodriguez - 12/07/2019 12:29 PM EDT Nutrition Services Note - Low Nutrition Acuity Angel Luis Salinas is a 74 y.o. male Reason for intervention: hospital day 9 Nutrition Plan: Patient screened for Hospital Day 9. Attempted to visit patient twice on 12/06, patient is not feeling well today. Nutrition will continue to monitor and follow up. Encouraged good PO intake. Monitor weight. Nutrition will continue to monitor and follow up with patient to further assess level of PO intake and appetite. Active Orders Diet Cardiac diet Frequency: Effective Now Number of Occurrences: Until Specified Admit Weight: 64.1 kg Estimated body mass index is 20.12 kg/m?? as calculated from the following: Height as of 12/05/19: 177.8 cm (5' 10). Weight as of this encounter: 63.6 kg (140 lb 3.4 oz). Wt Readings from Last 5 Encounters: 12/07/19 63.6 kg (140 lb 3.4 oz) 12/05/19 64.3 kg (141 lb 12.1 oz) 11/30/19 64.1 kg (141 lb 5 oz) 05/13/13 59.4 kg (131 lb) Weight loss: none Appetite: Fair (25%-50%) Food allergies:no known food allergies Chewing/Swallowing difficulty: will arrange to send cut up foods Nausea/Vomiting: no known Last Bowel Movement: 12/07/19 Patient education / questions: not appropriate for education at this time. Nutrition services to follow weekly through hospital course unless consulted in the interim. Vikash Rodriguez Pager: [phone] Paris Dodd MD - 12/07/2019 9:55 AM EDT Cardiology Service Attending Daily Progress Note Patient: Angel Luis Salinas : 1945 Date of Admission: 11/29/2019 Reason for Admission: AMI/stroke LOS: 8 Please see today's progress note from /NAMITA Aranda for full details but in brief: Interval Events: AntiXA is 0.[address] head stable BP's to 80's overnight, asymptomatic - given bolus HR 60's, BP 80-90/50's, on RA TBB even Wgt 140 from 141 Current Medications: Scheduled Meds: ??? metoprolol succinate XL 100 mg Oral BID ??? furosemide 20 mg Oral Daily ??? colchicine 0.6 mg Oral Daily ??? ezetimibe 10 mg Oral Daily ??? aspirin 81 mg Oral Daily ??? nicotine 1 patch Transdermal Daily And ??? Patch Verification 1 patch Transdermal BID And ??? nicotine 1 patch Transdermal Daily ??? melatonin 3 mg Oral Nightly ??? clopidogreL 75 mg Oral Daily ??? cholecalciferol (Vitamin D3) 1,000 Units Oral Daily ??? sodium chloride 0.9 % (flush) 5 mL Intravenous BID Continuous Infusions: ??? heparin 1,100 Units/hr (12/07/19 0704) PRN Meds:.heparin (porcine) AND heparin, polyethylene glycol (MIRALAX)oral powder, diphenhydrAMINE, potassium chloride ER OR potassium chloride ER, acetaminophen, nitroGLYcerin, sodium chloride0.9 % (flush), lidocaine Home Medications: No current facility-administered medications on file prior to encounter. Current Outpatient Medications on File Prior to Encounter Medication Sig Dispense Refill ??? cholecalciferol, Vitamin D3, 400 unit tablet Take 1,000 Units by mouth daily. ??? aspirin 81 mg EC tablet Take 81 mg by mouth daily. Pt takes every other day ??? Red Yeast Rice Extract 600 mg Cap Take by mouth daily. ??? niacin (NIASPAN ER) 500 mg ER tablet Take 500 mg by mouth 2 times daily (with meals). Vitals: Last value Range last 24 hrs Temperature Temp: 36.5 ??C (97.7 ??F) Temp: [36.4 ??C (97.5 ??F)-36.7 ??C (98 ??F)] Heart Rate Heart Rate: 62 Heart Rate: [60-75] Blood Pressure BP: 104/54 BP: (78-104)/(45-61) Respiratory Rate Resp: 17 Resp: [11-28] SpO2 SpO2: 91 % SpO2: [90 %-97 %] Weight: Patient Vitals for the past 168 hrs: Weight 12/07/19 0350 63.6 kg (140 lb 3.4 oz) 12/06/19 0500 64.2 kg (141 lb 8.6 oz) 12/05/19 0606 64.3 kg (141 lb 12.1 oz) 12/04/19 0456 65.7 kg (144 lb 13.5 oz) 12/03/19 0341 66.5 kg (146 lb 9.7 oz) 12/02/19 0500 68.1 kg (150 lb 2.1 oz) 12/01/19 0400 70.1 kg (154 lb 8.7 oz) Weight change: -0.6 kg (-1 lb 5.2 oz) In/Out: Intake/Output Summary (Last 24 hours) at 12/07/2019 0955 Last data filed at 12/07/2019 0600 Gross per 24 hour Intake 850 ml Output 1450 ml Net -600 ml Physical Exam: General: NAD Neck: JVP <10 cmH20 Cardiac: Irr/irr Chest: CTAB Abdomen: Soft NT ND, +BS Extremities: WWP w/ no sig edema Neuro: AxOx3 Skin: No rashes observed Labs: K 3.8, Cre 0.83 CBC stable AntiXA 0.3 (goal 0.3-0.5) Relevant Cardiac Tests: TTE: 1. The left ventricular chamber size is [...] is no prior study available for comparison. LHC: Left Main There was mild diffuse (<=25% stenosis) disease of the entire vessel segment of the left main artery. Left Anterior Descending There was mild diffuse (<=25% stenosis) disease of the entire vessel segment of the left anterior descending artery (LAD). The proximal segment of the LAD had mild diffuse (<=25% stenosis) disease. Left Circumflex There was a 50% long segmental stenosis of the mid 1 segment of the left circumflex artery (LCX). The LCX was large. The mid 2 segment of the LCX had a single discrete 80% stenosis. Right Coronary Artery There were multiple discrete 95% stenoses of the proximal segment of the right coronary artery (RCA). The RCA was large. The mid segment of the RCA had moderate diffuse (<=50% stenosis) disease. There also were multiple discrete 90% calcified stenoses of the distal segment of the RCA. There was evidence of thrombus in these lesions. Assessment: 74 year old M with a PMH of PAD, HLD, Active Tobacco Use & HTN who was admitted for inferior STEMI [s/p MACARIO to RCA x3, residual LCx disease - non-culprit artery; s/p lytics] with clinical course complicated by RV failure manifesting as cardiogenic shock, for which ionotropic support to be initiated today; additional complications include novel onset, paroxysmal atrial fibrillation [[id number]: 5] & L-sided diplopia with potential hemineglect for which CVA evaluation to be pursued. Noted to have b/l PE and PFO on watchman CT yesterday. Not AC d/t recent stroke. Plan: 1. Continue DAPT - will d/c ASA in 1 month if he goes out on triple therapy 2. Continue lasix 20mg QD 3. Metoprolol succinate 100 BID 4. Continue heparin today, goal antiXa 0.3-0.5 5. Check coverage for apixiban with plan to stop heparin and start tomorrow This visit lasted 35 minutes, of which 30 minutes were spent in direct discussion and counseling with the patient. Paris Matt MD MPH [facility] Cardiac Transplant Attending 12/07/2019, 9:55 AM Paris Dodd MD - 12/06/2019 10:39 AM EDT Cardiology Service Attending Daily Progress Note Patient: Angel Luis Salinas : 1945 Date of Admission: 11/29/2019 Reason for Admission: AMI/stroke LOS: 7 Please see today's progress note from Dr/NAMITA Aranda for full details but in brief: Interval Events: MRI of head showed stability, no progression of bleed Wanted to leave this AM, has now agreed to stay for 48 hours of IV heparin with head imaging Having intermittent spikes to 140's on telemetry SB to 40's overnight, nonsustained One episode this AM ~150 that looks like Aflutter on strip (no 12 lead) Current Medications: Scheduled Meds: ??? metoprolol succinate XL 100 mg Oral BID ??? colchicine 0.6 mg Oral Daily ??? ezetimibe 10 mg Oral Daily ??? aspirin 81 mg Oral Daily ??? nicotine 1 patch Transdermal Daily And ??? Patch Verification 1 patch Transdermal BID And ??? nicotine 1 patch Transdermal Daily ??? melatonin 3 mg Oral Nightly ??? clopidogreL 75 mg Oral Daily ??? cholecalciferol (Vitamin D3) 1,000 Units Oral Daily ??? sodium chloride 0.9 % (flush) 5 mL Intravenous BID Continuous Infusions: ??? heparin PRN Meds:.heparin (porcine) AND heparin, polyethylene glycol (MIRALAX)oral powder, diphenhydrAMINE, potassium chloride ER OR potassium chloride ER, acetaminophen, nitroGLYcerin, sodium chloride0.9 % (flush), lidocaine Home Medications: No current facility-administered medications on file prior to encounter. Current Outpatient Medications on File Prior to Encounter Medication Sig Dispense Refill ??? cholecalciferol, Vitamin D3, 400 unit tablet Take 1,000 Units by mouth daily. ??? aspirin 81 mg EC tablet Take 81 mg by mouth daily. Pt takes every other day ??? Red Yeast Rice Extract 600 mg Cap Take by mouth daily. ??? niacin (NIASPAN ER) 500 mg ER tablet Take 500 mg by mouth 2 times daily (with meals). Vitals: Last value Range last 24 hrs Temperature Temp: 36.5 ??C (97.7 ??F) Temp: [36.4 ??C (97.5 ??F)-37 ??C (98.6 ??F)] Heart Rate Heart Rate: 69 Heart Rate: [63-142] Blood Pressure BP: 111/57 BP: (90-119)/(55-73) Respiratory Rate Resp: 20 Resp: [13-27] SpO2 SpO2: 96 % SpO2: [93 %-96 %] Weight: Patient Vitals for the past 168 hrs: Weight 12/06/19 0500 64.2 kg (141 lb 8.6 oz) 12/05/19 0606 64.3 kg (141 lb 12.1 oz) 12/04/19 0456 65.7 kg (144 lb 13.5 oz) 12/03/19 0341 66.5 kg (146 lb 9.7 oz) 12/02/19 0500 68.1 kg (150 lb 2.1 oz) 12/01/19 0400 70.1 kg (154 lb 8.7 oz) 11/29/19 1515 64.1 kg (141 lb 5 oz) Weight change: -0.1 kg (-3.5 oz) In/Out: Intake/Output Summary (Last 24 hours) at 12/06/2019 1039 Last data filed at 12/06/2019 0913 Gross per 24 hour Intake 630 ml Output 200 ml Net 430 ml Physical Exam: General: NAD Neck: JVP <10 cmH20 Cardiac: Irr/irr Chest: CTAB Abdomen: Soft NT ND, +BS Extremities: WWP w/ no sig edema Neuro: AxOx3 Skin: No rashes observed Labs: CBC stable K 4.0 Cre 0.88 Relevant Cardiac Tests: TTE: 1. The left ventricular chamber size is [...] is no prior study available for comparison. LHC: Left Main There was mild diffuse (<=25% stenosis) disease of the entire vessel segment of the left main artery. Left Anterior Descending There was mild diffuse (<=25% stenosis) disease of the entire vessel segment of the left anterior descending artery (LAD). The proximal segment of the LAD had mild diffuse (<=25% stenosis) disease. Left Circumflex There was a 50% long segmental stenosis of the mid 1 segment of the left circumflex artery (LCX). The LCX was large. The mid 2 segment of the LCX had a single discrete 80% stenosis. Right Coronary Artery There were multiple discrete 95% stenoses of the proximal segment of the right coronary artery (RCA). The RCA was large. The mid segment of the RCA had moderate diffuse (<=50% stenosis) disease. There also were multiple discrete 90% calcified stenoses of the distal segment of the RCA. There was evidence of thrombus in these lesions. Assessment: 74 year old M with a PMH of PAD, HLD, Active Tobacco Use & HTN who was admitted for inferior STEMI [s/p MACARIO to RCA x3, residual LCx disease - non-culprit artery; s/p lytics] with clinical course complicated by RV failure manifesting as cardiogenic shock, for which ionotropic support to be initiated today; additional complications include novel onset, paroxysmal atrial fibrillation [[id number]: 5] & L-sided diplopia with potential hemineglect for which CVA evaluation to be pursued. Noted to have b/l PE and PFO on watchman CT yesterday. Not AC d/t recent stroke. Plan: 1. Continue DAPT 2. Restart lasix 20mg QD 3. Metoprolol succinate 150/100 4. Start heparin without a bolus, will d/w neuro re: imaging q2h neuro check This visit lasted 35 minutes, of which 30 minutes were spent in direct discussion and counseling with the patient. Paris Matt MD MPH [facility] Cardiac Transplant Attending 12/06/2019, 10:39 AM Kacie Adame RN - 12/05/2019 6:15 PM EDT Mr Salinas Around 5.30 pm start on telemetry going to bursts of a-fib with rate 140, and would go back to sr 70 after, he doesn't feel it. He is scheduled for MRI Soon and it is not time for his eveningdose of metoprolol. Team is aware about a-fib events. Paris Dodd MD - 12/05/2019 10:01 AM EDT Cardiology Service Attending Daily Progress Note Patient: Angel Luis Salinas : 1945 Date of Admission: 11/29/2019 Reason for Admission: AMI/stroke LOS: 6 Please see today's progress note from /NAMITA Ewing for full details but in brief: Interval Events: CTA for watchman eval showed b/l PE's Also noted to have PFO Remains in Afib up to 180's overnight REDMOND with movement Duplex preliminary negative Current Medications: Scheduled Meds: ??? furosemide 20 mg Oral Daily ??? cefpodoxime 200 mg Oral BID ??? metroNIDAZOLE 500 mg Oral TID ??? metoprolol succinate XL 125 mg Oral Daily ??? colchicine 0.6 mg Oral Daily ??? ezetimibe 10 mg Oral Daily ??? aspirin 81 mg Oral Daily ??? nicotine 1 patch Transdermal Daily And ??? Patch Verification 1 patch Transdermal BID And ??? nicotine 1 patch Transdermal Daily ??? melatonin 3 mg Oral Nightly ??? clopidogreL 75 mg Oral Daily ??? cholecalciferol (Vitamin D3) 1,000 Units Oral Daily ??? sodium chloride 0.9 % (flush) 5 mL Intravenous BID Continuous Infusions: PRN Meds:.polyethylene glycol (MIRALAX)oral powder, diphenhydrAMINE, potassium chloride ER OR potassium chloride ER, acetaminophen, nitroGLYcerin, sodium chloride 0.9 % (flush), lidocaine Home Medications: No current facility-administered medications on file prior to encounter. Current Outpatient Medications on File Prior to Encounter Medication Sig Dispense Refill ??? cholecalciferol, Vitamin D3, 400 unit tablet Take 1,000 Units by mouth daily. ??? aspirin 81 mg EC tablet Take 81 mg by mouth daily. Pt takes every other day ??? Red Yeast Rice Extract 600 mg Cap Take by mouth daily. ??? niacin (NIASPAN ER) 500 mg ER tablet Take 500 mg by mouth 2 times daily (with meals). Vitals: Last value Range last 24 hrs Temperature Temp: 36.9 ??C (98.4 ??F) Temp: [36.4 ??C (97.5 ??F)-36.9 ??C (98.4 ??F)] Heart Rate Heart Rate: 75 Heart Rate: [73-169] Blood Pressure BP: 102/60 BP: (81-121)/(52-91) Respiratory Rate Resp: 16 Resp: [12-22] SpO2 SpO2: 91 % SpO2: [90 %-94 %] Weight: Patient Vitals for the past 168 hrs: Weight 12/05/19 0606 64.3 kg (141 lb 12.1 oz) 12/04/19 0456 65.7 kg (144 lb 13.5 oz) 12/03/19 0341 66.5 kg (146 lb 9.7 oz) 12/02/19 0500 68.1 kg (150 lb 2.1 oz) 12/01/19 0400 70.1 kg (154 lb 8.7 oz) 11/29/19 1515 64.1 kg (141 lb 5 oz) Weight change: -1.4 kg (-3 lb 1.4 oz) In/Out: Intake/Output Summary (Last 24 hours) at 12/05/2019 1001 Last data filed at 12/05/2019 0133 Gross per 24 hour Intake 150 ml Output 925 ml Net -775 ml Physical Exam: General: NAD Neck: JVP <10 cmH20 Cardiac: Irr/irr Chest: CTAB Abdomen: Soft NT ND, +BS Extremities: WWP w/ no sig edema Neuro: AxOx3 Skin: No rashes observed Labs: 8.6?37<163 136/3.9/21/1.02 Relevant Cardiac Tests: TTE: 1. The left ventricular chamber size is [...] is no prior study available for comparison. LHC: Left Main There was mild diffuse (<=25% stenosis) disease of the entire vessel segment of the left main artery. Left Anterior Descending There was mild diffuse (<=25% stenosis) disease of the entire vessel segment of the left anterior descending artery (LAD). The proximal segment of the LAD had mild diffuse (<=25% stenosis) disease. Left Circumflex There was a 50% long segmental stenosis of the mid 1 segment of the left circumflex artery (LCX). The LCX was large. The mid 2 segment of the LCX had a single discrete 80% stenosis. Right Coronary Artery There were multiple discrete 95% stenoses of the proximal segment of the right coronary artery (RCA). The RCA was large. The mid segment of the RCA had moderate diffuse (<=50% stenosis) disease. There also were multiple discrete 90% calcified stenoses of the distal segment of the RCA. There was evidence of thrombus in these lesions. Assessment: 74 year old M with a PMH of PAD, HLD, Active Tobacco Use & HTN who was admitted for inferior STEMI [s/p MACARIO to RCA x3, residual LCx disease - non-culprit artery; s/p lytics] with clinical course complicated by RV failure manifesting as cardiogenic shock, for which ionotropic support to be initiated today; additional complications include novel onset, paroxysmal atrial fibrillation [[id number]: 5] & L-sided diplopia with potential hemineglect for which CVA evaluation to be pursued. Noted to have b/l PE and PFO on watchman CT yesterday. Not AC d/t recent stroke. Plan: 1. Continue DAPT 2. Stop ABX, complete 5 days today 3. F/u final duplex read, prelim negative 4. Metoprolol succinate 100mg BID 5. Talk to neuro re: AC, ? Move up brain MRI and consider heparin trail over the weekend with frequent head imaging 6. If we can get him back on AC, will consider DCCV 7. Hold lasix tomorrow and f/u I/O and weight This visit lasted 35 minutes, of which 30 minutes were spent in direct discussion and counseling with the patient. Paris Matt MD MPH [facility] Cardiac Transplant Attending 12/05/2019, 10:01 AM Darrell Glasgow MD - 12/05/2019 6:35 AM EDT Inpatient Cardiology Progress Note Patient Name: Angel Luis Salinas Date of Admission: 11/29/2019 ( Hospital Day 6 days ) Service: S2 ID: Mr. Angel Luis Salinas is a 74 year old M with a PMH of PAD, HLD, Active Tobacco Use & HTN who was admitted for inferior STEMI [s/p MACARIO to RCA x3, residual LCx disease - non-culprit artery; s/p lytics] with clinical course complicated by RV failure manifesting as cardiogenic shock, for which ionotropic support to be initiated today; additional complications include paroxysmal atrial fibrillation [[id number]: 4] c/b possible cardioembolic stroke, ICH from anticoagulation, new findings of bilateral PE. Active Problems/Subjective: - Two runs of Subjective Not in acute distress. Endorsed dyspnea with minimal exertion. Denied chest pain, palpitation, leg swelling, Objective: Telemetry: sinus rhythm with paroxysmal afib and occasional rvr Meds: Continuous Infusions: Scheduled Meds: ??? metoprolol succinate XL 100 mg Oral BID ??? furosemide 20 mg Oral Daily ??? cefpodoxime 200 mg Oral BID ??? metroNIDAZOLE 500 mg Oral TID ??? colchicine 0.6 mg Oral Daily ??? ezetimibe 10 mg Oral Daily ??? aspirin 81 mg Oral Daily ??? nicotine 1 patch Transdermal Daily And ??? Patch Verification 1 patch Transdermal BID And ??? nicotine 1 patch Transdermal Daily ??? melatonin 3 mg Oral Nightly ??? clopidogreL 75 mg Oral Daily ??? cholecalciferol (Vitamin D3) 1,000 Units Oral Daily ??? sodium chloride 0.9 % (flush) 5 mL Intravenous BID PRN Meds:.polyethylene glycol (MIRALAX)oral powder, diphenhydrAMINE, potassium chloride ER OR potassium chloride ER, acetaminophen, nitroGLYcerin, sodium chloride 0.9 % (flush), lidocaine Physical Exam: Last value Range last 24 hrs Temperature Temp: 36.9 ??C (98.4 ??F) Temp: [36.4 ??C (97.5 ??F)-36.9 ??C (98.4 ??F)] Heart Rate Heart Rate: 75 Heart Rate: [73-169] Blood Pressure BP: 102/60 BP: (81-121)/(52-91) Respiratory Rate Resp: 16 Resp: [12-22] SpO2 SpO2: 91 % SpO2: [90 %-94 %] Ventilator Settings: Room air Hemodynamics: NA Patient Vitals for the past 168 hrs: Weight 12/05/19 0606 64.3 kg (141 lb 12.1 oz) 12/04/19 0456 65.7 kg (144 lb 13.5 oz) 12/03/19 0341 66.5 kg (146 lb 9.7 oz) 12/02/19 0500 68.1 kg (150 lb 2.1 oz) 12/01/19 0400 70.1 kg (154 lb 8.7 oz) 11/29/19 1515 64.1 kg (141 lb 5 oz) Intake/Output Summary (Last 24 hours) at 12/05/2019 1012 Last data filed at 12/05/2019 0133 Gross per 24 hour Intake 150 ml Output 925 ml Net -775 ml Lines: PIV cumulative I/O's since admission: -3,223cc Patient Vitals for the past 168 hrs: Weight 12/05/19 0606 64.3 kg (141 lb 12.1 oz) 12/04/19 0456 65.7 kg (144 lb 13.5 oz) 12/03/19 0341 66.5 kg (146 lb 9.7 oz) 12/02/19 0500 68.1 kg (150 lb 2.1 oz) 12/01/19 0400 70.1 kg (154 lb 8.7 oz) 11/29/19 1515 64.1 kg (141 lb 5 oz) General: Pale, not in acute distress, appropriate. Appears stated age. HEENT: EOMI, PERRL, anicteric sclera. Oropharynx clear w/o lesions. Moist mucous membranes Neck: Supple with normal ROM. No obvious LAD. Non appreciable JVD. Cardiac: Normal S1 and S2, Regular rate and rhythm; No murmrs/gallops/rubs. Respiratory: Barrel-chested. Nonlabored. Distant lung sound, no rales heard. Abd: + BS; soft, non-tender, non-distended, no obvious masses. Ext: WWP without le edema, cyanosis or clubbing. DPP 2+ bilaterally. Neuro: A+Ox4. CN II-XII intact. Negative for diplopia, jonh neglect. No focal weakness. Skin: No rashs, no lesions, no petechiae Labs Recent Labs 12/05/198 12/04/19 1255 12/04/19 0428 WBC 8.6 8.9 7.8 HGB 12.4* 13.5* 12.0* HCT 37.3* 41.7 36.5* PLATELET 163 196 151 Recent Labs 12/05/198 12/04/19 0428 12/03/19 1955 12/03/19 0402 NA 136 135 -- -- 136 K 3.9 4.2 3.9 < > 3.4* CL 103 104 -- -- 103 CO2 21* 19* -- -- 18* BUN 21* 19 -- -- 17 CREATININE 1.02 0.89 -- -- 0.95 < > = values in this interval not displayed. Recent Labs 11/29/19 1432 AST 257* ALT 50 ALKPHOS 84 BILITOT 0.3 BILIDIR 0.1 Recent Labs 12/05/19 0418 12/04/19 0428 12/03/19 0402 CALCIUM 8.8 8.5 8.3* MAGNESIUM 0.87 1.17* 0.79 Recent Labs 11/29/19 1432 INR 1.2 PT 13.5* PTT 114* Recent Labs 12/01/19 0355 11/30/19 2030 11/30/19 0830 11/30/19 0215 11/29/19 1835 CK -- -- 1,645* 1,969* 2,780* TROPONINT 4.35* 5.04* 8.04* 11.73* 17.60* No results for input(s): POCGLU in the last 168 hours. No results for input(s): SEDRATE, CRP in the last 72 hours. Imaging/Studies: #CT Cardiac Morphology FINDINGS: Left atrial appendage: Diameters at the neck/greatest diameters: 26 mm x 31 mm Length to tip: 57 mm ?? Orthogonal length from neck/greatest diameter to back wall: SURINAMESE 91, CAU 13: 19 mm CORTES 1, CAU 11: 19 mm ?? Orientation: The left atrial appendage extends directed cranially from the anterior aspect of the left atrium (sagittal reconstructions series 9, image 86), makes then a 90 degrees turn anteriorly followed by 150 degrees turn posteriorly to the right (series 5, image 24). Morphology: Windsock configuration. ?? Accessory appendage or diverticulum: Small broad-based diverticulum at the cranial anterior aspect of the left atrium, cranial to the interatrial septum. Left atrial or atrial appendage filling defects: None. Accessory pulmonary venous drainage: None. Anomalous pulmonary venous drainage: None. ?? Other cardiovascular structures: Thin contrast enhanced channel through the interatrial septum indicates a patent foramen ovale (series 6, image 345). RCA stenting. ?? Pulmonary parenchyma, airways, pleura: Incompletely included. Limited portions of the lungs included on this exam show centrilobular emphysema. Small bilateral pleural effusions with associated atelectasis. Bilateral pulmonary arterial emboli are incompletely visualized in the lower lobes (series 9, image 143 on the right and image 41 on the left). Upper abdomen: No significant findings. Skeletal structures: No significant findings 1. Cardiac Catheterization, 11/29/19: Discrete 90% stenosis in the prox-to-mid RCA. Severe diffuse disease in the distal vessel. Discrete LCX stenosis in a non-culprit artery. S/P DESx3 in the [id number] RCA. Aspiration thrombectomy performed, and integrellin bolus x2+ infusion. Nicardipine given during case due to intermittent sluggish flow. 2. TTE, 11/30/19: 1. The left ventricular chamber size is [...] is no prior study available for comparison. 3. CT head 12/01/19 IMPRESSION 1. Unchanged hemorrhage in the region of the left optic tract with unchanged mild edema. 2. Small lucent lesion within the superior left parietal bone which likely represents a benign hemangioma or venous severino. 3. Dental disease as detailed above. 4. RUE DVT Doppler 12/01/19 Right: No evidence of upper extremity deep or superficial venous thrombus. No evidence of internal jugular vein thrombus. 5. CXR 11/29 IMPRESSION Impression: New/ increased bibasilar opacities since 11/29/2019; differential includes bibasilar atelectasis and small effusions vs aspiration, infection. Upper lungs are clear. No pneumothorax is seen. 6. MRI brain 11/30 IMPRESSION 1. Area of abnormal susceptibility corresponding to known hemorrhage on CT examination in the left mesial temporal lobe/inferior basal ganglia. 2. Single additional punctate focus of hemoglobin degradation products seen in the right periventricular white matter anteriorly. 3. Single punctate focus of restricted diffusion in the right occipital lobe consistent with a small acute infarct, likely embolic Assessment [A]: Mr. Angel Luis Salinas is a 74 year old M with a PMH of PAD, HLD, Active Tobacco Use & HTN who was admitted for inferior STEMI [s/p MACARIO to RCA x3, residual LCx disease - non-culprit artery; s/p lytics] with clinical course complicated by RV failure manifesting as cardiogenic shock, for which ionotropic support to be initiated today; additional complications include novel onset, paroxysmal atrial fibrillation [[id number]: 5] & L-sided diplopia with potential hemineglect for which CVA evaluation to be pursued. Switched to metoprolol XL to 100 BID to better control HR especially at night. Given significant PE and PFO seen on CT we will talk to Neuro regarding anticoagulation plan. Prelimdata on DVT Duplex was negative. There was no clot seen in LA appendage. Hold diuretic tomorrow given negative weight loss. Patient is at euvolemic status. 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 Will readdress with anticoagulation today, given no clots seen in LA appendage. - Outpt follow up for possible Watchman. For HR control: - Toprol XL 100mg qd -> BID # Cardiogenic Shock - resolved # Acute, Decompensated, HF 2/2 Inferior STEMI, NYHA III, MILVIA/AHA stage C - Echo: LVEF 45% w/ WMAs - C/w Toprol XL 100mg BID - Hold gopal inhibitors given soft blood pressures Diuresis: - Hold diuretic tomorrow - Net goal: neutral - Daily weight - I/O - Heart failure education #Pericarditis s/p STEMI (?) - Continue on daily colchicine for 3 months # PAD; HLD # Active Tobacco Use: Contemplation Stage - ASA as above; he is statin intolerant #Concerning for aspiration pneumonia - Switch to Cefpodoxime and Flagyl for discharge planning. Total day course 5 day - finishing today. #Thrombocytopenia - resolved Other: - DVT prophylaxis: SCDs, hold off anticoagulation given ICH. - GI prophylaxis: Not indicated - Home medications: D3 1000U daily (resume), Niacin 500mg ER BID (hold), Red Yeast Rice Extract (hold) - Diet: Cardiac diet, 2g Na - Code Status: DNR/DNI - Dispo:ICCU, pending afib and anticoagulation ?? Darrell Glasgow MD PGY1, Internal Medicine Cardiology S2, #[id number] Associated attestation - Paris Dodd MD - 12/05/2019 2:59 PM EDT I was the assigned attending computer hardware engineer for this clinical encounter. For the purposes of billing, I was directly involved in the clinical decision making and the plan of care is reasonable. Please see full note below and separate attending note from today for additional details. Paris Matt MD MPH Advanced Heart Disease & Cardiac Transplant Attending 12/05/2019, 2:59 PM Kailyn Chung RN - 12/04/2019 10:48 AM EDT 12/04/19 1041 Adult Vital Signs Heart Rate from SpO2 64 bpm Heart Rate (!) 154 BP (!) 121/91 MAP (NBP) 98 mmHg Resp 22 SpO2 94 % Tele alarm for NSR conversion to Aflutter. HR 180-190s. Pt denied palpitations, SOB or chest pain. VS obtained - see above. MD (S2 team) notified. EKG obtained. Bernie Alexander RN - 12/04/2019 10:36 AM EDT Office of Care Management(OCM)/[employer] Laboratory Technician(CM)/Discharge Planning Service: Cardiology S2 team CM Bernie Alexander,RN,BSN,MA,ACM pgr [id number] Reviewed record and in Cardiology Rounds with MD team,CMs, tannery worker, REFRIGERATOR GLAZIER. Pt is anticipated ready for d/c later today. Met w pt re d/c plan and he continues to agree with home PT/OT/RN w [facility]. His son is bringing his to pick him up together. Discussed Advance Directives and DPOAH- he states he has at home and designated his as primiary; he thought his PCP would have copy. Tel call to PCP who notes no DPOAH on file. Encouraged pt to take his AD to his PCP and to any [facility] appt for each to have on file. An Important Message From Medicare about Your Rights letter reviewed with pt and pt signed acknowledgment and was provided copy; he waived waiting 4 hrs to make a decision. Says he's ready to go! Raul Hein RN - 12/04/2019 6:42 AM EDT OUTCOME EVALUATION NOTE: OUTCOME SUMMARY: Angel Luis had a steady night, slept between care. VS WNL, see flowsheet. SR on tele with increased run ofafib/flutter around 0100, MD notified and Mg replaced. HR goes up to 150s-160s when on afib (asymptomatic) and in 60s-90s when on NSR. Still required 1-2L O2 while sleeping. Had 2 loose BM overnight. No chest pain reported. PLAN MOVING FORWARD: Discharge home today? INDIVIDUALIZED FALL PREVENTION INTERVENTIONS: Patient-specific fall risk factors per assessment: [current deficits]: Tele wires, environment Assistance [level of assistance required for transfers and ambulation]: Standby with walker Supervision [direct monitoring required during toileting and ADLs]: Standby Surveillance [continuous indirect monitoring]: Tele, pulse ox, purposeful rounding, call churchill in reach Patient-specific fall prevention interventions for sensory deficits provided, if applicable: CPG GOAL OUTCOME EVALUATION: ongoing Gretchen Yoon MD - 12/04/2019 6:40 AM EDT Inpatient Cardiology Progress Note Patient Name: Angel Luis Salinas Date of Admission: 11/29/2019 ( Hospital Day 5 days ) Service: S2 ID: Mr. Angel Luis Salinas is a 74 year old M with a PMH of PAD, HLD, Active Tobacco Use & HTN who was admitted for inferior STEMI [s/p MACARIO to RCA x3, residual LCx disease - non-culprit artery; s/p lytics] with clinical course complicated by RV failure manifesting as cardiogenic shock, for which ionotropic support to be initiated today; additional complications include novel onset, paroxysmal atrial fibrillation [[id number]: 4] & L-sided diplopia with potential hemineglect for which CVA evaluationto be pursued. Active Problems/Subjective: Doing well, walking with PT/Rehab. - Down to 1L NC this AM. - Overnight, has increasing frequency of afib runs. Gave 2g Mag. Soft BP so didn't increase metop. Subjective Not in acute distress. Denied chest pain, palpitation, leg swelling, Objective: Telemetry: sinus rhythm with paroxysmal afib and occasional rvr Meds: Continuous Infusions: Scheduled Meds: ??? metoprolol tartrate 25 mg Oral Q6H BECK ??? metroNIDAZOLE 500 mg Oral TID ??? colchicine 0.6 mg Oral Daily ??? ezetimibe 10 mg Oral Daily ??? aspirin 81 mg Oral Daily ??? cefTRIAXone 1 g Intravenous Q24H ??? nicotine 1 patch Transdermal Daily And ??? Patch Verification 1 patch Transdermal BID And ??? nicotine 1 patch Transdermal Daily ??? melatonin 3 mg Oral Nightly ??? clopidogreL 75 mg Oral Daily ??? cholecalciferol (Vitamin D3) 1,000 Units Oral Daily ??? sodium chloride 0.9 % (flush) 5 mL Intravenous BID PRN Meds:.polyethylene glycol (MIRALAX)oral powder, diphenhydrAMINE, potassium chloride ER OR potassium chloride ER, acetaminophen, nitroGLYcerin, sodium chloride 0.9 % (flush), lidocaine Physical Exam: Last value Range last 24 hrs Temperature Temp: 36.6 ??C (97.9 ??F) Temp: [36.5 ??C (97.7 ??F)-36.9 ??C (98.4 ??F)] Heart Rate Heart Rate: 79 Heart Rate: [67-95] Blood Pressure BP: 116/72 BP: (96-129)/(56-75) Respiratory Rate Resp: 20 Resp: [13-28] SpO2 SpO2: 92 % SpO2: [92 %-99 %] Ventilator Settings: 2L -> 1L NC Hemodynamics: NA Patient Vitals for the past 168 hrs: Weight 12/04/19 0456 65.7 kg (144 lb 13.5 oz) 12/03/19 0341 66.5 kg (146 lb 9.7 oz) 12/02/19 0500 68.1 kg (150 lb 2.1 oz) 12/01/19 0400 70.1 kg (154 lb 8.7 oz) 11/29/19 1515 64.1 kg (141 lb 5 oz) Intake/Output Summary (Last 24 hours) at 12/04/2019 0640 Last data filed at 12/04/2019 0400 Gross per 24 hour Intake 250 ml Output 1275 ml Net -1025 ml Lines: PIV cumulative I/O's since admission: -2,618cc Patient Vitals for the past 168 hrs: Weight 12/04/19 0456 65.7 kg (144 lb 13.5 oz) 12/03/19 0341 66.5 kg (146 lb 9.7 oz) 12/02/19 0500 68.1 kg (150 lb 2.1 oz) 12/01/19 0400 70.1 kg (154 lb 8.7 oz) 11/29/19 1515 64.1 kg (141 lb 5 oz) General: Pale, not in acute distress, appropriate. Appears stated age. HEENT: EOMI, PERRL, anicteric sclera. Oropharynx clear w/o lesions. Moist mucous membranes Neck: Supple with normal ROM. No obvious LAD. Non appreciable JVD. Cardiac: Normal S1 and S2, Regular rate and rhythm; No murmrs/gallops/rubs. Respiratory: Barrel-chested. Nonlabored. Distant lung sound, no rales heard. Abd: + BS; soft, non-tender, non-distended, no obvious masses. Ext: WWP without le edema, cyanosis or clubbing. DPP 2+ bilaterally. Neuro: A+Ox4. CN II-XII intact. Negative for diplopia, jonh neglect. No focal weakness. Skin: No rashs, no lesions, no petechiae Labs Recent Labs 12/04/198 12/03/19 1357 12/03/19 0402 WBC 7.8 8.8 9.1 HGB 12.0* 12.5* 11.8* HCT 36.5* 37.5* 35.6* PLATELET 151 158 130* Recent Labs 12/04/19 0428 12/03/19 1955 12/03/19 1357 12/03/19 0402 12/02/19 0455 NA 135 -- -- 136 135 K 4.2 3.9 3.7 3.4* 3.7 CL 104 -- -- 103 105 CO2 19* -- -- 18* 18* BUN 19 -- -- 17 13 CREATININE 0.89 -- -- 0.95 0.93 Recent Labs 11/29/19 1432 AST 257* ALT 50 ALKPHOS 84 BILITOT 0.3 BILIDIR 0.1 Recent Labs 12/04/19 0428 12/03/19 0402 12/02/19 0455 CALCIUM 8.5 8.3* 8.1* MAGNESIUM 1.17* 0.79 0.85 Recent Labs 11/29/19 1432 INR 1.2 PT 13.5* PTT 114* Recent Labs 12/01/19 0355 11/30/19 2030 11/30/19 0830 11/30/19 0215 11/29/19 1835 CK -- -- 1,645* 1,969* 2,780* TROPONINT 4.35* 5.04* 8.04* 11.73* 17.60* No results for input(s): POCGLU in the last 168 hours. No results for input(s): SEDRATE, CRP in the last 72 hours. Imaging/Studies: 1. Cardiac Catheterization, 11/29/19: Discrete 90% stenosis in the prox-to-mid RCA. Severe diffuse disease in the distal vessel. Discrete LCX stenosis in a non-culprit artery. S/P DESx3 in the [id number] RCA. Aspiration thrombectomy performed, and integrellin bolus x2+ infusion. Nicardipine given during case due to intermittent sluggish flow. 2. TTE, 11/30/19: 1. The left ventricular chamber size is [...] is no prior study available for comparison. 3. CT head 12/01/19 IMPRESSION 1. Unchanged hemorrhage in the region of the left optic tract with unchanged mild edema. 2. Small lucent lesion within the superior left parietal bone which likely represents a benign hemangioma or venous severino. 3. Dental disease as detailed above. 4. RUE DVT Doppler 12/01/19 Right: No evidence of upper extremity deep or superficial venous thrombus. No evidence of internal jugular vein thrombus. 5. CXR 11/29 IMPRESSION Impression: New/ increased bibasilar opacities since 11/29/2019; differential includes bibasilar atelectasis and small effusions vs aspiration, infection. Upper lungs are clear. No pneumothorax is seen. 6. MRI brain 11/30 IMPRESSION 1. Area of abnormal susceptibility corresponding to known hemorrhage on CT examination in the left mesial temporal lobe/inferior basal ganglia. 2. Single additional punctate focus of hemoglobin degradation products seen in the right periventricular white matter anteriorly. 3. Single punctate focus of restricted diffusion in the right occipital lobe consistent with a small acute infarct, likely embolic Assessment [A]: Mr. Angel Luis Salinas is a 74 year old M with a PMH of PAD, HLD, Active Tobacco Use & HTN who was admitted for inferior STEMI [s/p MACARIO to RCA x3, residual LCx disease - non-culprit artery; s/p lytics] with clinical course complicated by RV failure manifesting as cardiogenic shock, for which ionotropic support to be initiated today; additional complications include novel onset, paroxysmal atrial fibrillation [[id number]: 5] & L-sided diplopia with potential hemineglect for which CVA evaluation to be pursued. Got run of afib w/ rvr at 11am, asx, SBP 120s. Gave 5mg IV metop and 100mg Toprol XL. Getting CT scan morphology for evaluation for Watchmann device for his afib with embolic stroke and ich. 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 - CT Cardiac Morphology today for Watchman evaluation. For HR control: - Toprol XL 100mg qd - Gave 1x 5mg IV metop for rvr today. Barrier for discharge. # Cardiogenic Shock - resolved # Acute, Decompensated, HF 2/2 Inferior STEMI, NYHA III, MILVIA/AHA stage C - Echo: LVEF 45% w/ WMAs - C/w Toprol XL 100mg QD - Hold Gopal-I given soft blood pressures - Daily 20mg PO lasix - Net goal: -500cc to neutral - Daily weight - I/O - Heart failure education #Pericarditis s/p STEMI (?) - Continue on daily colchicine for 3 months # PAD; HLD # Active Tobacco Use: Contemplation Stage - ASA as above; he is statin intolerant #Concerning for aspiration pneumonia - Switch to Cefpodoxime and Flagyl for discharge planning. Total day course 5 day #Thrombocytopenia - resolved Other: - DVT prophylaxis: SCDs, hold of anticoagulation given ICH. - GI prophylaxis: Not indicated - Home medications: D3 1000U daily (resume), Niacin 500mg ER BID (hold), Red Yeast Rice Extract (hold) - Diet: Cardiac diet, 2g Na - Code Status: DNR/DNI - Dispo:ICCU, pending afib ?? Darrell Glasgow MD PGY1, Internal Medicine Cardiology S2, #[id number] I have seen the patient and reviewed the resident's above history and I agree with the details as written. The assessment and plan were formulated in discussion with me and I agree with them as documented. 74 year old man with history of PAD, dyslipidemia, CAD, HFrEF, admitted for inferior STEMI s/p lytic therapy and PCI (DESx3 RCA). Course complicated by RV failure (supported medically), visual changes (with both ICH and right occipital lobe cardioembolic embolism), aspiration pneumonia and afib. He has since recovered and today, was ambulating safely around the hallways chest pain free. We have been optimizing his medications for his ischemic CM and CAD; rate control for his afib. In lieu of hisrecent small ICH, he will not be initiated on anticoagulation (DAPT ok per neurology/neurosurgery). I have asked my interventional cardiology colleague, Dr. Sanchez, to meet him to consider his candidacy for LAAO. Otherwise, stable for discharge home with followup in my clinic. Gretchen Yoon MD Pager [phone] Derian Pascual RN - 12/03/2019 9:29 AM EDT Case Management Discharge Plan DISCHARGE PLANNING Anticipated Discharge Disposition: Home w/ VNA vs SNF Expected DC Date: 12/04 Steps Taken Toward Discharge: Possibly medically ready as soon as Sunday. Waiting on PT/OT evaluation to determine if he can discharge home w/ VNA services or needs rehab stay. VNA orders pended and SNF referrals made to cover both possibilities. Patient down to 2L, so may not need O2 at discharge. Next Steps: Will follow through to discharge as needs arise Barriers to Discharge: None Electronically signed: Derian Pascual RN, Denture Laboratory Technician Pgr: [phone] 12/03/2019 9:29 AM Gretcehn Yoon MD - 12/03/2019 9:01 AM EDT Inpatient Cardiology Progress Note Patient Name: Angel Luis Salinas Date of Admission: 11/29/2019 ( Hospital Day 4 days ) Service: S2 ID: Mr. Angel Luis Salinas is a 74 year old M with a PMH of PAD, HLD, Active Tobacco Use & HTN who was admitted for inferior STEMI [s/p MACARIO to RCA x3, residual LCx disease - non-culprit artery; s/p lytics] with clinical course complicated by RV failure manifesting as cardiogenic shock, for which ionotropic support to be initiated today; additional complications include novel onset, paroxysmal atrial fibrillation [[id number]: 4] & L-sided diplopia with potential hemineglect for which CVA evaluationto be pursued. Active Problems/Subjective: - Desats to 80 on room air. - MRI brain showed known hemorrhagic bleed, but also possible small embolic stroke at right occipital lobe. - Pressor is off and ventilator requirement comes down. Subjective Not in acute distress. Persistent blurriness with reading small fonts. Mild SOB with exertion. Denied chest pain, palpitation, leg swelling, Objective: Telemetry: sinus rhythm with paroxysmal afib and occasional rvr Meds: Continuous Infusions: Scheduled Meds: ??? metoprolol tartrate 25 mg Oral Q6H BECK ??? metroNIDAZOLE 500 mg Oral TID ??? colchicine 0.6 mg Oral Daily ??? ezetimibe 10 mg Oral Daily ??? aspirin 81 mg Oral Daily ??? cefTRIAXone 1 g Intravenous Q24H ??? pantoprazole EC 40 mg Oral BID ??? nicotine 1 patch Transdermal Daily And ??? Patch Verification 1 patch Transdermal BID And ??? nicotine 1 patch Transdermal Daily ??? melatonin 3 mg Oral Nightly ??? clopidogreL 75 mg Oral Daily ??? cholecalciferol (Vitamin D3) 1,000 Units Oral Daily ??? sodium chloride 0.9 % (flush) 5 mL Intravenous BID PRN Meds:.polyethylene glycol (MIRALAX)oral powder, diphenhydrAMINE, potassium chloride ER OR potassium chloride ER, acetaminophen, nitroGLYcerin, sodium chloride 0.9 % (flush), lidocaine Physical Exam: Last value Range last 24 hrs Temperature Temp: 36.5 ??C (97.7 ??F) Temp: [36.5 ??C (97.7 ??F)-37.4 ??C (99.3 ??F)] Heart Rate Heart Rate: 67 Heart Rate: [67-160] Blood Pressure BP: 96/56 BP: (96-119)/(56-76) Respiratory Rate Resp: 16 Resp: [14-30] SpO2 SpO2: 96 % SpO2: [92 %-99 %] Ventilator Settings: 4L NC -> 2L NC Hemodynamics: Patient Vitals for the past 168 hrs: Weight 12/03/19 0341 66.5 kg (146 lb 9.7 oz) 12/02/19 0500 68.1 kg (150 lb 2.1 oz) 12/01/19 0400 70.1 kg (154 lb 8.7 oz) 11/29/19 1515 64.1 kg (141 lb 5 oz) Intake/Output Summary (Last 24 hours) at 12/03/2019 0906 Last data filed at 12/03/2019 0332 Gross per 24 hour Intake 357 ml Output 1850 ml Net -1493 ml Lines: PIV cumulative I/O's since admission: -1,533cc Patient Vitals for the past 168 hrs: Weight 12/03/19 0341 66.5 kg (146 lb 9.7 oz) 12/02/19 0500 68.1 kg (150 lb 2.1 oz) 12/01/19 0400 70.1 kg (154 lb 8.7 oz) 11/29/19 1515 64.1 kg (141 lb 5 oz) General: Pale, not in acute distress, appropriate. Appears stated age. HEENT: EOMI, PERRL, anicteric sclera. Oropharynx clear w/o lesions. Moist mucous membranes Neck: Supple with normal ROM. No obvious LAD. Non appreciable JVD. Cardiac: Normal S1 and S2, Regular rate and rhythm; No murmrs/gallops/rubs. Respiratory: Barrel-chested. Nonlabored. Distant lung sound, no rales heard. Abd: + BS; soft, non-tender, non-distended, no obvious masses. Ext: WWP without le edema, cyanosis or clubbing. DPP 2+ bilaterally. Neuro: A+Ox4. CN II-XII intact. Negative for diplopia, jonh neglect. No focal weakness. Skin: No rashs, no lesions, no petechiae Labs Recent Labs 12/03/19 0402 12/02/19 1250 12/02/19 0455 WBC 9.1 10.6* 9.3 HGB 11.8* 11.9* 10.8* HCT 35.6* 35.7* 33.1* PLATELET 130* 120* 93* Recent Labs 12/03/19 0402 12/02/19 0455 12/01/19 0355 NA 136 135 132* K 3.4* 3.7 4.0 CL 103 105 105 CO2 18* 18* 17* BUN 17 13 11 CREATININE 0.95 0.93 0.96 Recent Labs 11/29/19 1432 AST 257* ALT 50 ALKPHOS 84 BILITOT 0.3 BILIDIR 0.1 Recent Labs 12/03/19 0402 12/02/19 0455 12/01/19 0355 CALCIUM 8.3* 8.1* 7.6* MAGNESIUM 0.79 0.85 0.96 Recent Labs 11/29/19 1432 INR 1.2 PT 13.5* PTT 114* Recent Labs 12/01/19 0355 11/30/19 2030 11/30/19 0830 11/30/19 0215 11/29/19 1835 CK -- -- 1,645* 1,969* 2,780* TROPONINT 4.35* 5.04* 8.04* 11.73* 17.60* No results for input(s): POCGLU in the last 168 hours. Recent Labs 12/01/19 0355 SEDRATE 25 CRP 92.5* Imaging/Studies: 1. Cardiac Catheterization, 11/29/19: Discrete 90% stenosis in the prox-to-mid RCA. Severe diffuse disease in the distal vessel. Discrete LCX stenosis in a non-culprit artery. S/P DESx3 in the [id number] RCA. Aspiration thrombectomy performed, and integrellin bolus x2+ infusion. Nicardipine given during case due to intermittent sluggish flow. 2. TTE, 11/30/19: 1. The left ventricular chamber size is [...] is no prior study available for comparison. 3. CT head 12/01/19 IMPRESSION 1. Unchanged hemorrhage in the region of the left optic tract with unchanged mild edema. 2. Small lucent lesion within the superior left parietal bone which likely represents a benign hemangioma or venous severino. 3. Dental disease as detailed above. 4. RUE DVT Doppler 12/01/19 Right: No evidence of upper extremity deep or superficial venous thrombus. No evidence of internal jugular vein thrombus. 5. CXR 11/29 IMPRESSION Impression: New/ increased bibasilar opacities since 11/29/2019; differential includes bibasilar atelectasis and small effusions vs aspiration, infection. Upper lungs are clear. No pneumothorax is seen. 6. MRI brain 11/30 IMPRESSION 1. Area of abnormal susceptibility corresponding to known hemorrhage on CT examination in the left mesial temporal lobe/inferior basal ganglia. 2. Single additional punctate focus of hemoglobin degradation products seen in the right periventricular white matter anteriorly. 3. Single punctate focus of restricted diffusion in the right occipital lobe consistent with a small acute infarct, likely embolic Assessment [A]: Mr. Angel Luis Salinas is a 74 year old M with a PMH of PAD, HLD, Active Tobacco Use & HTN who was admitted for inferior STEMI [s/p MACARIO to RCA x3, residual LCx disease - non-culprit artery; s/p lytics] with clinical course complicated by RV failure manifesting as cardiogenic shock, for which ionotropic support to be initiated today; additional complications include novel onset, paroxysmal atrial fibrillation [[id number]: 5] & L-sided diplopia with potential hemineglect for which CVA evaluation to be pursued. Clinically improving. Soft BP but asx - will continue with current metoprolol dosing per GDMT. Cardiac rehab in placed. Switch to oral lasix 40mg today given some need for oxygen. Reassess in daily interval. No anticoagulation per Stroke team - will see patient in 2 weeks with repeated MRI brain. Anticipate discharge in 48 hours if clinically improving. Patient would like to [facility] and follow up with his PCP. Patient voiced strong will to quit smoking now, understood that we have resources available for help. Plan [P]: --Neurologic-- # Concern for Left-Sided Diplopia, r/o Hemineglect # Concern for CVA, last-known well 11/29/19 - MRI showed possible cardioembolic stroke #Afib with [id number] score of 5 - Stroke Team Consulted; appreciate recs - Continue: Plavix and aspirin daily. - Defer: Statin given severe allergy - q4H Neuro Checks - S/P TNK for STEMI on 11/29/19 --Cardiovascular-- Ischemia: # Inferior STEMI [s/p MACARIO x3 to RCA; non-MIRTHA LCx; s/p lytics] # STEMI [LEYLA: 187, DILLON: 7, Killip: 4] - Continue: ASA/Clopidogrel - Defer: Statin given severe allergy, can consider PSCK9 inhibitor. - Continue with Metoprolol 25mg q6h with hold parameters - Will hold lisinopril given soft BP. - Cardiac rehab consulted. - PT/OT - Maintain Telemetry; K>4, Mg>1 - S/P Integrillin Infusion on 11/19/19 # Cardiogenic Shock - resolved # Acute, Decompensated, HF 2/2 Inferior STEMI, NYHA III, MILVIA/AHA stage C - Echo: LVEF 45% w/ WMAs - C/w Metoprolol 25mg q6h - Hold Gopal-I given soft blood pressures - Diuresis: consider switching to oral maintenance dosing lasix 40mg PO lasix. - Net goal: -500cc to neutral - Daily weight - I/O #Pericarditis s/p STEMI (?) - Continue on daily colchicine for 3 months Anticoagulation/Arrhythmia # Novel Onset, Paroxsymal Atrial Fibrillation [[id number]: 5] - Hold off anticoagulation for at least 2 weeks per Neurology rec. - On metoprolol 25mg q6h for HR control. - Goal HR < 110 bpm - Maintain Telemetry; K>4, Mg>1 # PAD; HLD # Active Tobacco Use: Contemplation Stage - ASA as above; he is statin intolerant - Tobacco team consult --Pulmonary-- # No active issues --Renal/-- # Suspected BPH - resolved - Urinary retention protocol w straight cath prn # Nutrition - [facility] [place], 2g Na. -- Hematology/Oncology-- # Mild Thrombocytopenia, unclear etiology - resolved - s/p 1 unit plt transfusion 11/30. - Goal >75k given ICH. ?? Other: - DVT prophylaxis: SCDs, hold of anticoagulation given ICH. - GI prophylaxis: Not indicated - Home medications: D3 1000U daily (resume), Niacin 500mg ER BID (hold), Red Yeast Rice Extract (hold) - Diet: Cardiac diet, 2g Na - Code Status: DNR/DNI - Dispo:ICCU ?? Darrell Glasgow MD PGY1, Internal Medicine Cardiology S2, #[id number] I have seen the patient and reviewed the resident's above history and I agree with the details as written. The assessment and plan were formulated in discussion with me and I agree with them as documented. Gretchen Yoon MD Pager [phone] Raul Hein RN - 12/03/2019 5:55 AM EDT OUTCOME EVALUATION NOTE: OUTCOME SUMMARY: Uneventful night, slept between care. No chest pain reported. Remains on 2L-3L O2, desats in low-mid80s on room air. Gutierres maintained, low urine output. NSR on tele, had few short run of afib/flutter with HR in 130s, see saved strips.VS as documented. PLAN MOVING FORWARD: Wean O2 as tolerated Q4 Neuro check INDIVIDUALIZED FALL PREVENTION INTERVENTIONS: Patient-specific fall risk factors per assessment: [current deficits]: Generalized weakness, tele wires Assistance [level of assistance required for transfers and ambulation]: 1 assist with walker Supervision [direct monitoring required during toileting and ADLs]: Within reach Surveillance [continuous indirect monitoring]: Tele, pulse ox, purposeful rounding, call churchill in reach Patient-specific fall prevention interventions for sensory deficits provided, if applicable: CPG GOAL OUTCOME EVALUATION: ongoing Deepthi Roman MD - 12/02/2019 12:29 PM EDT Neurology Vascular Consult Note Patient name: Angel Luis Salinas Date of : 1945 PCP: France Lam MD CC: Left Sided Vision Problems ID: Angel Luis Salinas is a 74 y.o. right handed man with a PMH of PAD, HLD, active tobacco use, and HTN who was admitted to cardiology for STEMI (underwent lytics on 11/28 and s/p MACARIO to RCA x 3) which has beencomplicated by new afib and cardiogenic shock. Neurology has been consulted for new onset left sideddiplopia and blurry vision concerning for stroke. Interval History: -CTH demonstrated hemorrhage projecting in the junction of the left mesial temporal lobe and basal ganglia in the region of the left optic tract which was stable on surveillance CTH -Recommended monotherapy with Plavix until MRI can be obtained and avoiding anticoagulation for at least 24-48 hours post bleed -On DAPT -SBP ranged from 90's - 160's overnight febrile to 38.2 and tachypnic in the 30's. Started on CTX and Metronidazole -WBC stable at 9.3 -MRI complete -Reports improvements of visual deficits Current Medications: Scheduled Meds: ??? pantoprazole EC 40 mg Oral BID ??? nicotine 1 patch Transdermal Daily And ??? Patch Verification 1 patch Transdermal BID And ??? nicotine 1 patch Transdermal Daily ??? levoFLOXacin in D5W 750 mg Intravenous Q24H ??? metroNIDAZOLE 500 mg Intravenous Q8H BECK ??? melatonin 3 mg Oral Nightly ??? clopidogreL 75 mg Oral Daily ??? cholecalciferol (Vitamin D3) 1,000 Units Oral Daily ??? sodium chloride 0.9 % (flush) 5 mL Intravenous BID Continuous Infusions: ??? DOBUTamine 2.5 mcg/kg/min (12/01/19 0600) ??? nitroGLYcerin Stopped (12/01/19 06) ??? NORepinephrine Stopped (12/01/19 0538) PRN Meds:.potassium chloride ER OR potassium chloride ER, acetaminophen, nitroGLYcerin, sodium chloride 0.9 % (flush), lidocaine, fentaNYL (PF) OR fentaNYL (PF) Physical Exam: Vitals: Temp: [37.3 ??C (99.1 ??F)-38.7 ??C (101.7 ??F)] Heart Rate: [59-112] Resp: [15-47] BP: -- SpO2: [88 %-97 %] Heart Rate from SpO2: [58 bpm-111 bpm] Gen: Patient of apparent stated age, well nourished, well developed, awake, alert, NAD Neck: Supple, no meningismus Ext: No edema. No bony deformity, missing first phalanx of right index finger Neuro Exam: MS: AAOx4, clear language, no dysarthria, follows commands CN: PERRL, EOMI Visual Cha Intact Facial sensation intact, no facial asymmetry Hearing intact to finger rub Palate elevates symmetrically, tongue protrudes midline SCM and trap strength intact Motor: Normal bulk and tone. No pronator drift Moving upper and lower limbs against gravity Sensation: Intact to light touch throughout Reflexes: DTRs 2+ R, 2+ L Biceps 2+ R, 2+ L Brachioradialis 2+ R, 2+ L Triceps 2+ R, 2+ L Patellar 2+ R, 2+ L Achilles tendon Toes - R down, L down Coordination: Finger to nose intact, no dysmetria Heel-kendrick intact No tremor Gait: Did not assess NIH Stroke Scale: (bold applicable choices) NIH Stroke Scale at 0 Evaluation: 1.a. Level of consciousness: 0-Alert 1-Not alert, but arousable with minimal stimulation 2-Not alert, requires repeat stimulation to attend 3-Coma 1.b. Ask patient the month and their age: 0-Answers both correctly 1-Answers one correctly 2-Both incorrect 1.c. Ask patient to open and close eyes: 0-Obeys both correctly 1-Obeys one correctly 2-Both incorrect 2. Best gaze (horizontal eye movement): 0-Normal 1-Partial gaze palsy 2-Forced deviation 3. Visual field testin-No visual field loss 1-Partial hemianopia 2-Complete hemianopia 3-Bilateral hemianopia (blind including cortical blindness) 4. Facial paresis (Ask patient to show teeth or raise eyebrows and close eyes tightly): 0-Normal symmetrical movement 1-Minor paralysis (flattened nasolabial fold, asymmetry on smiling) 2-Partial paralysis (total or near paralysis of lower face) 3-Complete paralysis of one or both sides (absence of facial movement in the upper and lower face) 5. Motor function right arm: 0-Normal (extends arm 90 degrees for 10 seconds without drift) 1-Drift 2-Some effort against gravity 3-No effort against gravity 4-No movement 9-Untestable (Joint fused or limb amputated) 5. Motor function- left arm: 0-Normal (extends arm 90 degrees for 10 seconds without drift) 1-Drift 2-Some effort against gravity 3-No effort against gravity (but baseline) 4-No movement 9-Untestable (Joint fused or limb amputated) 6. Motor function right le-Normal (extends leg 30 degrees for 5 seconds without drift) 1-Drift 2-Some effort against gravity 3-No effort against gravity 4-No movement 9-Untestable (Joint fused or limb amputated) 6. Motor function-left le-Normal (extends leg 30 degrees for 5 seconds without drift) 1-Drift 2-Some effort against gravity 3-No effort against gravity 4-No movement 9-Untestable (Joint fused or limb amputated) 7. Limb ataxia: 0-No ataxia 1-Present in one limb 2-Present in two limbs 8. Sensory (Use pinprick to test arms, legs, trunk and face compare side to side): 0-Normal 1-Mild to moderate decrease in sensation 2-Severe to total sensory loss 9. Best language (describe picture, name items, read sentences): 0-No aphasia 1-Mild to moderate aphasia 2-Severe aphasia 3-Mute 10. Dysarthria (read several words): 0-Normal articulation 1-Mild to moderate slurring of words 2-Near unintelligible or unable to speak 9-Intubated or other physical barrier 11. Extinction and inattention: 0-Normal 1-Inattention or extinction to bilateral simultaneous in one of the sensory modalities 2-Severe jonh-inattention or jonh-inattention to more than one modality TOTAL SCORE: 0 Labs: Recent Results (from the past 24 hour(s)) Troponin Result Value Ref Range Troponin-T 8.04 (H) 0.00 - 0.00 ng/mL CK Result Value Ref Range CK, Total 1,645 (H) 0 - 200 unit/L Magnesium Result Value Ref Range Magnesium 0.88 0.69 - 1.07 mmol/L BLOOD GAS 2 ARTERIAL Result Value Ref Range pH Art 7.45 7.35 - 7.45 pCO2 Art 27 (L) 35 - 45 mmHg pO2 Art 68 (L) 85 - 104 mmHg HCO3 Art 18.2 (L) 20.0 - 26.0 mmol/L BE Art -5.9 (L) -3.0 - 3.0 mmol/L Hgb Blood Gas 12.4 (L) 13.7 - 16.5 gm/dL O2HB Art 93.1 (L) 94.0 - 97.0 % COHB Art 0.8 % METHB Art 0.4 <=1.5 % Na Whole Blood 133 (L) 135 - 145 mmol/L K Whole Blood 3.6 3.5 - 5.0 mmol/L ICa Whole Blood 1.13 (L) 1.15 - 1.33 mmol/L CL Whole Blood 108 (H) 98 - 107 mmol/L Gluc Whole Bld 121 65 - 199 mg/dL Lactate WB 1.2 0.5 - 2.2 mmol/L Flow Art 5.0 LPM Basic Metabolic Panel (non-fasting) Result Value Ref Range Glucose Lvl 132 65 - 199 mg/dL BUN 12 10 - 20 mg/dL Creatinine 0.94 0.80 - 1.50 mg/dL Sodium 136 135 - 145 mmol/L Potassium 3.9 3.5 - 5.0 mmol/L Chloride 108 (H) 98 - 107 mmol/L CO2 17 (L) 22 - 31 mmol/L Anion Gap 11 5 - 15 mmol/L Calcium 7.9 (L) 8.5 - 10.5 mg/dL eGFR 80 >=60 mL/min/1.73 m?? eGFR 93 >=60 mL/min/1.73 m?? Magnesium Result Value Ref Range Magnesium 0.79 0.69 - 1.07 mmol/L Troponin Result Value Ref Range Troponin-T 5.04 (H) 0.00 - 0.00 ng/mL pro-Brain Natriuretic Peptide Result Value Ref Range ProBNP 2,802 (H) <=125 pg/mL Urinalysis with reflex Culture Result Value Ref Range Glucose UA Negative Negative mg/dL Protein UA Negative Negative mg/dL Bilirubin UA Negative Negative mg/dL Urobilinogen UA Normal Normal mg/dL pH UA 5.5 5.0 - 8.0 Blood UA Moderate (A) Negative mg/dL Ketones UA 40 (A) Negative mg/dL Nitrite UA Negative Negative Leukocytes UA Trace (A) Negative mcL Appearance UA Clear Clear Spec [place] UA 1.026 1.006 - 1.030 Color UA Yellow Yellow Culture Reflexed No Urinalysis Microscopic Exam Result Value Ref Range RBC UA 27 (H) 0 - 3 /HPF WBC UA 4 (H) 0 - 3 /HPF Hyaline Cast UA 3 (H) 0 - 2 /LPF BLOOD GAS 2 ARTERIAL Result Value Ref Range pH Art 7.45 7.35 - 7.45 pCO2 Art 23 (L) 35 - 45 mmHg pO2 Art 76 (L) 85 - 104 mmHg HCO3 Art 15.3 (L) 20.0 - 26.0 mmol/L BE Art -8.7 (L) -3.0 - 3.0 mmol/L Hgb Blood Gas 11.7 (L) 13.7 - 16.5 gm/dL O2HB Art 94.2 94.0 - 97.0 % COHB Art 0.5 % METHB Art 0.6 <=1.5 % Na Whole Blood 133 (L) 135 - 145 mmol/L K Whole Blood 3.8 3.5 - 5.0 mmol/L ICa Whole Blood 1.10 (L) 1.15 - 1.33 mmol/L CL Whole Blood 109 (H) 98 - 107 mmol/L Gluc Whole Bld 120 65 - 199 mg/dL Lactate WB 0.8 0.5 - 2.2 mmol/L FIO2 Art 100 % PF Ratio Art 76 Hemogram Result Value Ref Range WBC 11.0 (H) 4.0 - 9.5 x10(3)/mcL RBC 3.46 (L) 4.58 - 5.54 x10(6)/mcL Hemoglobin 10.2 (L) 13.7 - 16.5 gm/dL Hematocrit 31.2 (L) 40.5 - 48.5 % MCV 90.2 82.9 - 93.1 fL MCH 29.5 27.5 - 32.1 pg MCHC 32.7 32.0 - 35.7 gm/dL Platelets 98 (L) 145 - 357 x10(3)/mcL RDWSD 47.9 (H) 36.0 - 45.0 fL RDWCV 14.6 (H) 11.4 - 13.8 % MPV 12.3 7.6 - 12.9 fL nRBC % Auto 0.0 % nRBC Abs Auto 0.000 0.000 - 0.000 x10(3)/mcL BMP w/fasting Glucose Result Value Ref Range Glucose Fasting 148 (H) 65 - 99 mg/dL BUN 11 10 - 20 mg/dL Creatinine 0.96 0.80 - 1.50 mg/dL Sodium 132 (L) 135 - 145 mmol/L Potassium 4.0 3.5 - 5.0 mmol/L Chloride 105 98 - 107 mmol/L CO2 17 (L) 22 - 31 mmol/L Anion Gap 10 5 - 15 mmol/L Calcium 7.6 (L) 8.5 - 10.5 mg/dL eGFR 78 >=60 mL/min/1.73 m?? eGFR 91 >=60 mL/min/1.73 m?? Magnesium Result Value Ref Range Magnesium 0.96 0.69 - 1.07 mmol/L Troponin Result Value Ref Range Troponin-T 4.35 (H) 0.00 - 0.00 ng/mL ABO/Rh Typing Result Value Ref Range ABORh Type AB Pos Antibody screen Result Value Ref Range Ab Screen Interp Negative Expires at 2359 on: 12/04/2019 ABORH Recheck Status Result Value Ref Range ABORH Recheck Order Order Placed ABORH Type Recheck Complete Diagnostic Tests and Imaging: MRI Brain wo Contrast IMPRESSION 1. Area of abnormal susceptibility corresponding to known hemorrhage on CT examination in the left mesial temporal lobe/inferior basal ganglia. 2. Single additional punctate focus of hemoglobin degradation products seen in the right periventricular white matter anteriorly. 3. Single punctate focus of restricted diffusion in the right occipital lobe consistent with a small acute infarct, likely embolic Assessment and Plan: Angel Luis Salinas is a 74 y.o. with a PMH of PAD, HLD, active tobacco use, and HTN who was admitted to cardiology for STEMI (underwent lytics on 11/28 and s/p MACARIO to RCA x 3) which has been complicated by new afib and cardiogenic shock. Neurology has been consulted for new onset left sided diplopia and blurry vision concerning for stroke. The symptoms localize to left midbrain, likely with involvement of the optic tracts. The likely etiology of this stroke is unclear. He should undergo MRI with SWI sequencing for further evaluation of prior hemorrhage / microhemorrhage suggestive of CAA. Thrombolytics were considered and not given secondary to Specify reason: hemorrhage present. His MRI did demonstrate embolic infarcts affecting the R. Occipital lobe and evidence of hemorrhage in the L. Basal Ganglia and L. Mesial Temporal Lobe. It is likely that his infarcts are cardio embolic in origin and that there was hemorrhagic conversion involving the L. MTL and L. Basal Ganglia. We recognize that he recently had cardiac stenting and requires antiplatelet treatment in support ofthat. Literature review did not demonstrate a clear consensus on managing patients with atrial fibrillation and ICH. However, in his case we recommend conservative management since he will require DAPTfor his MACARIO and may require triple therapy with the addition anticoagulation for his atrial fibrillation for secondary stroke prevention. This will obivously increase his risk for hemorrhagic strokes so it would be best to monitor him on DAPT for 2- weeks and repeat an MRI Brain before considering anticoagulation. We have made arrangements for him to follow up with Vascular Neurology and have providedhum with patient education material on hemorrhagic strokes. Recommendations: - c/w DAPT (per Cardiology) - HOLD therapeutic anticoagulation until repeat MRI Brain with SWI sequences in 2 weeks - SBP < 160 - Follow up with Vascular Neurology (we have made arrangements) Discussed with Dr. Turner ?? Consult service will continue to follow patient. X Recommendations are above, please page if further consultation required. Alecia Barrera MD PGY3 Neurology Resident 12/01/2019 Vascular Neurology Pager [phone] Neurology Attending Attestation I evaluated the patient with the Neurology Residents during bedside rounds on 12/02/2019. I have reviewed the medical records and patient's history, as well as the resident???s and student's history and examination findings and I agree with the details as written. My neurologic examination confirms the resident???s findings. We formulated the assessment and plan after a detailed discussion, as documented. Deepthi Roman MD Vascular Neurology Standard [facility] [place] Screen: This screen is to be used to document a Swallow Screen prior to ingestion of water and /or oral medications for patients with possible stroke (Ischemic or Hemorrhagic). Exclusion Criteria: A swallow screen is not to be performed on patients who: ?? have a decreased level of consciousness. ?? are not able to follow simple commands. ?? are hypoxic, or have increasing O2 needs or may need to be intubated. ?? have a G/J tube for nutrition. ?? have a recent history of a swallowing disorder *These patients should remain NPO (HOLD MEDS) and the physician notified for further orders. Swallow Screen Using Water: None of the Exclusion Criteria as mentioned above is present? Patient is alert and sitting upright? Able to close lips and tongue is midline? Able to cough, manage oral secretions with dry voice? ONLY IF ABOVE ALL YES, Able to swallow 30 ml of water without coughing, displaying a wet voice or choking? Repeat Twice. ??? If YES to all responses, proceed with water and oral medications as well as diet as medical provider deems appropriate. Consider SAFETY EQUIPMENT TESTING SPECIALIST consult for full evaluation and diet recommendations. ??? If NO to any of the responses, stop immediately, keep patient NPO and notify physician. Gretchen Yoon MD - 12/02/2019 9:10 AM EDT Inpatient Cardiology Progress Note Patient Name: Angel Luis Salinas Date of Admission: 11/29/2019 ( Hospital Day 3 days ) Service: S2 ID: Mr. Angel Luis Salinas is a 74 year old M with a PMH of PAD, HLD, Active Tobacco Use & HTN who was admitted for inferior STEMI [s/p MACARIO to RCA x3, residual LCx disease - non-culprit artery; s/p lytics] with clinical course complicated by RV failure manifesting as cardiogenic shock, for which ionotropic support to be initiated today; additional complications include novel onset, paroxysmal atrial fibrillation [[id number]: 4] & L-sided diplopia with potential hemineglect for which CVA evaluationto be pursued. Active Problems/Subjective: - No acute events overnight. - MRI brain showed known hemorrhagic bleed, but also possible small embolic stroke at right occipital lobe. - Pressor is off and ventilator requirement comes down. Subjective Not in acute distress. Some blurriness with right vision field. SOB improved significantly, cough improved. Denied chest pain, palpitation, leg swelling, Objective: Telemetry: sinus rhythm with paroxysmal afib and occasional rvr Meds: Continuous Infusions: Scheduled Meds: ??? metoprolol tartrate 25 mg Oral Q6H BECK ??? metroNIDAZOLE 500 mg Oral TID ??? [START ON 12/03/2019] colchicine 0.6 mg Oral Daily ??? ezetimibe 10 mg Oral Daily ??? aspirin 81 mg Oral Daily ??? cefTRIAXone 1 g Intravenous Q24H ??? pantoprazole EC 40 mg Oral BID ??? nicotine 1 patch Transdermal Daily And ??? Patch Verification 1 patch Transdermal BID And ??? nicotine 1 patch Transdermal Daily ??? melatonin 3 mg Oral Nightly ??? clopidogreL 75 mg Oral Daily ??? cholecalciferol (Vitamin D3) 1,000 Units Oral Daily ??? sodium chloride 0.9 % (flush) 5 mL Intravenous BID PRN Meds:.diphenhydrAMINE, potassium chloride ER OR potassium chloride ER, acetaminophen, nitroGLYcerin, sodium chloride 0.9 % (flush), lidocaine Physical Exam: Last value Range last 24 hrs Temperature Temp: 37.4 ??C (99.3 ??F) Temp: [37.3 ??C (99.1 ??F)-38.2 ??C (100.8 ??F)] Heart Rate Heart Rate: 81(report to CSCU RN) Heart Rate: [74-160] Blood Pressure BP: 145/90 BP: (145)/(90) Respiratory Rate Resp: 28 Resp: [17-32] SpO2 SpO2: 95 % SpO2: [91 %-96 %] Ventilator Settings: 4L NC Hemodynamics: CVP 14 PAP Sys/Cotton 36/19 PAP mean 30 CO 5.4 CI 3 SR 983 Intake/Output Summary (Last 24 hours) at 12/02/2019 1618 Last data filed at 12/02/2019 1557 Gross per 24 hour Intake 860 ml Output 2420 ml Net -1560 ml Lines: Radial L artery line - c/d/i R IJ line - c/d/i Gutierres cumulative I/O's since admission: -1,220cc Patient Vitals for the past 168 hrs: Weight 12/02/19 0500 68.1 kg (150 lb 2.1 oz) 12/01/19 0400 70.1 kg (154 lb 8.7 oz) 11/29/19 1515 64.1 kg (141 lb 5 oz) General: Pale, not in acute distress, appropriate. Appears stated age. HEENT: EOMI, PERRL, anicteric sclera. Oropharynx clear w/o lesions. Moist mucous membranes Neck: Supple with normal ROM. No obvious LAD. Non appreciable JVD. (+) R IJ Pa Catheter Cardiac: Normal S1 and S2, Regular rate and rhythm; No murmrs/gallops/rubs. Respiratory: Barrel-chested. Nonlabored. Distant lung sound, rales heard bilat. Abd: + BS; soft, non-tender, non-distended, no obvious masses. Ext: WWP without le edema, cyanosis or clubbing. DPP 1+ bilaterally. (+) L radial arterial line Neuro: A+Ox4. CN II-XII intact. Negative for diplopia, jonh neglect. No focal weakness. Skin: No rashs, no lesions, no petechiae Labs Recent Labs 12/02/19 1250 12/02/19 0455 12/01/19 1251 WBC 10.6* 9.3 8.4 HGB 11.9* 10.8* 10.8* HCT 35.7* 33.1* 32.4* PLATELET 120* 93* 72* Recent Labs 12/02/19 0455 12/01/19 0355 11/30/192029 NA 135 132* 136 K 3.7 4.0 3.9 CL 105 105 108* CO2 18* 17* 17* BUN 13 11 12 CREATININE 0.93 0.96 0.94 Recent Labs 11/29/19 1432 AST 257* ALT 50 ALKPHOS 84 BILITOT 0.3 BILIDIR 0.1 Recent Labs 12/02/19 0455 12/01/19 03511/30/192029 CALCIUM 8.1* 7.6* 7.9* MAGNESIUM 0.85 0.96 0.79 Recent Labs 11/29/19 1432 INR 1.2 PT 13.5* PTT 114* Recent Labs 12/01/19 0355 11/30/19202911/30/19 0830 11/30/19 0215 11/29/19 1835 CK -- -- 1,645* 1,969* 2,780* TROPONINT 4.35* 5.04* 8.04* 11.73* 17.60* No results for input(s): POCGLU in the last 168 hours. Recent Labs 12/01/19 0355 SEDRATE 25 CRP 92.5* Imaging/Studies: 1. Cardiac Catheterization, 11/29/19: Discrete 90% stenosis in the prox-to-mid RCA. Severe diffuse disease in the distal vessel. Discrete LCX stenosis in a non-culprit artery. S/P DESx3 in the [id number] RCA. Aspiration thrombectomy performed, and integrellin bolus x2+ infusion. Nicardipine given during case due to intermittent sluggish flow. 2. TTE, 11/30/19: 1. The left ventricular chamber size is [...] is no prior study available for comparison. 3. CT head 12/01/19 IMPRESSION 1. Unchanged hemorrhage in the region of the left optic tract with unchanged mild edema. 2. Small lucent lesion within the superior left parietal bone which likely represents a benign hemangioma or venous severino. 3. Dental disease as detailed above. 4. RUE DVT Doppler 12/01/19 Right: No evidence of upper extremity deep or superficial venous thrombus. No evidence of internal jugular vein thrombus. 5. CXR 11/29 IMPRESSION Impression: New/ increased bibasilar opacities since 11/29/2019; differential includes bibasilar atelectasis and small effusions vs aspiration, infection. Upper lungs are clear. No pneumothorax is seen. 6. MRI brain 11/30 IMPRESSION 1. Area of abnormal susceptibility corresponding to known hemorrhage on CT examination in the left mesial temporal lobe/inferior basal ganglia. 2. Single additional punctate focus of hemoglobin degradation products seen in the right periventricular white matter anteriorly. 3. Single punctate focus of restricted diffusion in the right occipital lobe consistent with a small acute infarct, likely embolic Assessment [A]: Mr. Angel Luis Salinas is a 74 year old M with a PMH of PAD, HLD, Active Tobacco Use & HTN who was admitted for inferior STEMI [s/p MACARIO to RCA x3, residual LCx disease - non-culprit artery; s/p lytics] with clinical course complicated by RV failure manifesting as cardiogenic shock, for which ionotropic support to be initiated today; additional complications include novel onset, paroxysmal atrial fibrillation [[id number]: 5] & L-sided diplopia with potential hemineglect for which CVA evaluation to be pursued. Clinically improving, responding well to diuresis effort. He's now stable for step down to floor with no further need for pressor support. Will initiate on GDMT with metoprolol 25mg q6h, and lisinopriltomorrow if hemodynamically stable. Continue with daily diuresis with 20mg of iv lasix. His neurological status has been stable, and we have restarted aspirin. We are awaiting further recommendation from neurology regarding systemic anticoagulation with heparin given findings of afib and possible embolic stroke on mri brain. He responded well to platelet infusion, with platelet check this afternoon improving. Plan [P]: --Neurologic-- # Concern for Left-Sided Diplopia, r/o Hemineglect # Concern for CVA, last-known well 11/29/19 - MRI showed possible embolic stroke and now with afib - Stroke Team Consulted; awaiting rec for when to restart anticoagulation - Continue: Plavix. Hold Aspirin as per discussion with Neurosurgery. - Defer: Statin given severe allergy - q4H Neuro Checks - Obtain: Bilateral Carotid Ultrasound - S/P TNK for STEMI on 11/29/19 --Cardiovascular-- Ischemia: # Inferior STEMI [s/p MACARIO x3 to RCA; non-MIRTHA LCx; s/p lytics] # STEMI [LEYLA: 187, DILLON: 7, Killip: 4] - Continue: ASA/Clopidogrel - Defer: Statin given severe allergy - Initiate Metoprolol 25mg q6h - Consider lisinopril in AM if hemodynamically stable - Cardiac rehab consult - Pending resolution of shock - revascularization to LCx [likely: PCI] - Maintain Telemetry; K>4, Mg>1 - S/P Integrillin Infusion on 11/19/19 # Cardiogenic Shock - resolved # Acute, Decompensated, HF 2/2 Inferior STEMI - Echo: LVEF 45% w/ WMAs - Initiate Metoprolol 25mg q6h - Consider Lisinopril in AM - Diuresis: lasix 20mg IV once - Net goal: -500 to -1L/24hr - Daily weight - I/O #Pericarditis (?) - Continue on daily colchicine Anticoagulation/Arrhythmia # Novel Onset, Paroxsymal Atrial Fibrillation [[id number]: 5] - Hold off anticoagulation - pending Neurology evaluation. - On metoprolol 25mg q6h for HR control. - Goal HR < 110 bpm - Maintain Telemetry; K>4, Mg>1 # PAD; HLD # Active Tobacco Use: Contemplation Stage - ASA as above; defer Statin for now - Tobacco team consult --Pulmonary-- # No active issues --Renal/-- # Suspected BPH - Urinary retention protocol w straight cath prn - Hold off tamsulosin d/t low BP. # Nutrition - [facility] [place] -- Hematology/Oncology-- # Mild Thrombocytopenia, unclear etiology - Maintain: T&S - Monitor for s/s of bleeding, goal plt >75k - 4T score of 3. ?? Other: - DVT prophylaxis: SCDs, hold of anticoagulation given ICH. - GI prophylaxis: PPI - Home medications: D3 1000U daily (resume), Niacin 500mg ER BID (hold), Red Yeast Rice Extract (hold) - Diet: Cardiac diet, 2g Na - Code Status: DNR/DNI - Dispo:ICCU ?? Darrell Glasgow MD PGY1, Internal Medicine Cardiology S2, #[id number] I have seen the patient and reviewed the resident's above history and I agree with the details as written. The assessment and plan were formulated in discussion with me and I agree with them as documented. I spent >30 minutes at the bedside reviewing the patient's medical record including laboratory and imaging data, examining the patient at the bedside, and coformulating a management strategy with the ICU team. Gretchen Yoon MD Pager [phone] Natalia Claros APRN - 12/02/2019 8:38 AM EDT NEUROSURGERY PROGRESS NOTE ID: Angel Luis Salinas is a 74 y.o. male with hemorrhage in the region of the left optic tract s/p STEMI withPCI and stenting on 11/29/2019. INTERVAL Hx: -MARTIN overnight; neurologically stable -Repeat head CT stable -Baby aspirin restarted MEDICATIONS: Scheduled Meds: ??? ezetimibe 10 mg Oral Daily ??? colchicine 0.6 mg Oral BID ??? aspirin 81 mg Oral Daily ??? cefTRIAXone 1 g Intravenous Q24H ??? pantoprazole EC 40 mg Oral BID ??? nicotine 1 patch Transdermal Daily And ??? Patch Verification 1 patch Transdermal BID And ??? nicotine 1 patch Transdermal Daily ??? metroNIDAZOLE 500 mg Intravenous Q8H BECK ??? melatonin 3 mg Oral Nightly ??? clopidogreL 75 mg Oral Daily ??? cholecalciferol (Vitamin D3) 1,000 Units Oral Daily ??? sodium chloride 0.9 % (flush) 5 mL Intravenous BID Continuous Infusions: ??? DOBUTamine Stopped (12/01/19 1642) ??? nitroGLYcerin Stopped (12/01/19 06) ??? NORepinephrine Stopped (12/01/19 0538) PRN: diphenhydrAMINE, 50 mg, Q2H PRN EPINEPHrine, 0.3 mg, Q5 Min PRN potassium chloride ER, 20 mEq, Q4H PRN Or potassium chloride ER, 40 mEq, Q4H PRN acetaminophen, 650 mg, Q4H PRN nitroGLYcerin, 0.4 mg, Q5 Min PRN sodium chloride 0.9 % (flush), 5-20 mL, Q1 Min PRN lidocaine, 0.3 mL, Once PRN fentaNYL (PF), 25 mcg, Q30 Min PRN Or fentaNYL (PF), 25 mcg, Q1H PRN EXAM: Temp: [37.7 ??C (99.9 ??F)-38.2 ??C (100.8 ??F)] Heart Rate: [79-115] Resp: [13-32] BP: (145)/(90) SpO2: [90 %-99 %] Heart Rate from SpO2: [79 bpm-114 bpm] I/O: Intake/Output Summary (Last 24 hours) at 12/02/2019 0838 Last data filed at 12/02/2019 0600 Gross per 24 hour Intake 759.2 ml Output 3340 ml Net -2580.8 ml GEN:Critically ill and frail appearing NEURO: Awake, alert and oriented x 3 Speech fluent and appropriate. PERRL. EOMI. Visual cha full. No facial asymmetry Tongue midline MOTOR: RUE:5/5 LUE:5/5 RLE: 5/5 LLE: 5 No pronator drift LABS: Recent Labs 12/02/19 0455 12/01/19 1251 12/01/19 0355 WBC 9.3 8.4 11.0* HGB 10.8* 10.8* 10.2* PLATELET 93* 72* 98* Recent Labs 12/02/19 0455 12/01/19 0355 11/30/19 2030 NA 135 132* 136 K 3.7 4.0 3.9 CL 105 105 108* CO2 18* 17* 17* BUN 13 11 12 CREATININE 0.93 0.96 0.94 Recent Labs 11/29/19 1432 PT 13.5* INR 1.2 IMAGING: CTH/CTA 11/29: IMPRESSION Head CT: Stable hemorrhage in the region of the left optic tract. ?? CTA: Negative exam. No abnormal vasculature in the area of hemorrhage. CTH 11/30: IMPRESSION 1. Unchanged hemorrhage in the region of the left optic tract with unchanged mild edema. 2. Small lucent lesion within the superior left parietal bone which likely represents a benign hemangioma or venous severino. 3. Dental disease as detailed above. MRI brain 11/30: IMPRESSION 1. Area of abnormal susceptibility corresponding to known hemorrhage on CT examination in the left mesial temporal lobe/inferior basal ganglia. 2. Single additional punctate focus of hemoglobin degradation products seen in the right periventricular white matter anteriorly. 3. Single punctate focus of restricted diffusion in the right occipital lobe consistent with a small acute infarct, likely embolic Assessment: 74 y.o. male with hemorrhage in the region of the left optic tract s/p STEMI with PCI and stenting on 11/29/2019. Neurologically stable. No indication for acute neurosurgical intervention. ?? Problem List: Intracranial hemorrhage STEMI PCI with stenting Cardiogenic shock Brain compression Cerebral edema Hypertension ?? Plan: - Neuro checks Q4 - Goal SBP < 160 - Hold therapeutic anticoagulation - DVT ppx with SQ heparin is okay at this time - Okay for ASA 81 & Plavix - Rest of care per primary team - We will arrange follow-up in 2 weeks in Neurosurgery Clinic with repeat head CT (order placed). - We are signing off. Please page [phone] with any questions or concerns. For questions please call NS pager [phone] Natalia Claros APRN 12/02/2019 8:38 AM Clinical Documentation Improvement: Active Hospital Problems Diagnosis ??? Acute ST elevation myocardial infarction (STEMI) of inferior wall ??? Intracranial hemorrhage ??? Hyperlipidemia ??? Tobacco abuse ??? Claudication from peripheral vascular disease, left Resolved Hospital Problems No resolved problems to display. Tello Hsu, PROTECTIVE SIGNAL INSTALLER - 12/02/2019 2:06 AM EDT 06/01/20 2010 Oxygen Therapy O2 Device NC O2 Flow Rate (L/min) 4 L/min SpO2 95 % Resp 19 Patient tolerated 4 lpm NC well overnight. High flow nasal cannula on Standby if needed. Chapo Mcclendon RCP - 12/01/2019 7:43 AM EDT Respiratory Therapy Heated Humidified High Flow INDICATIONS: High O2 requirement and Work of breathing HIGH FLOW SETTINGS: Interface: High flow nasal cannula Flow: 40 L/min FiO2: (S) 70 % - turned down from 80% at the start of shift VITAL SIGNS: HR: (!) 102 RR: 26 SpO2: 97 % SKIN ASSESSMENT: WDL BREATH SOUNDS: Clear bilaterally Last Chest X-ray: Results for orders placed during the hospital encounter of 11/29/19 XR Chest One View Narrative EXAMINATION: XR CHEST ONE VIEW CLINICAL HISTORY: 74 M w/ inferior STEMI c/b shock, now febrile TECHNIQUE: AP portable semierect 75 degrees upright chest COMPARISON: 11/29/2019. FINDINGS: Examination demonstrates new bibasilar opacities, most consistent with bibasilar atelectasis and small bilateral effusions. Pleural fluid is seen in the right fissures. No pneumothorax seen. Cardiomediastinal silhouette is unchanged. There is a right internal jugular pulmonary artery catheter with the tip projecting over the expected location of the distal right interlobar artery. No acute osseous lesion. Impression Impression: New/ increased bibasilar opacities since 11/29/2019; differential includes bibasilar atelectasis and small effusions vs aspiration, infection. Upper lungs are clear. No pneumothorax is seen. Thank you for letting us participate in the care of this patient. For questions regarding this report, please contact the number below. SSMENT: Patient states he is breathing easier than last night. Still increased WOB PLAN: Wean FiO2 as tolerated. Patient to CT Scan in afternoon. Upon arrival back in [facility] placed on low flow NC at 4 lpm with sats in low 90's. DESHAWN GALVIN Darrell Glasgow MD - 12/01/2019 7:08 AM EDT Inpatient Cardiology Progress Note Patient Name: Angel Luis Salinas Date of Admission: 11/29/2019 ( Hospital Day 2 days ) Service: S2 ID: Mr. Angel Luis Salinas is a 74 year old M with a PMH of PAD, HLD, Active Tobacco Use & HTN who was admitted for inferior STEMI [s/p MACARIO to RCA x3, residual LCx disease - non-culprit artery; s/p lytics] with clinical course complicated by RV failure manifesting as cardiogenic shock, for which ionotropic support to be initiated today; additional complications include novel onset, paroxysmal atrial fibrillation [[id number]: 4] & L-sided diplopia with potential hemineglect for which CVA evaluationto be pursued. Active Problems/Subjective: - 11/28: admitted for inferior STEMI, RV failure requiring pressor - got lytics, aspirin and plavix load, heparin gtt, and eptifibatide. 3 MACARIO stents to RCA. Pearblossom cath - low wedge & CVP so receivedfluid bolus 2L. On Levo for pressor support -> switched to Dobutamine. Right hemineglect and blurry vision - CT brain with hemorrhage in left optic tract. Neurosurgery and Neurology were consulted. Aspirin was held. Interval CT head did not show progression of his bleeding and neurological check q2h was stable. - 11/30: Spiked fever to 101.7F, blood cultures, u/a and cxr obtained. Start on Levofloxacin + Metronidazole (history of severe penicillin allergy). Desat to 85% w/ orthopnea, cxr increased bibsilar opacities. O2 requirement to 4L -> HFNC, ABG - pO2 68, pCO2 27. Repleted Mag & K. 10 chest pain: ekg no significant change, with new RBBB pattern. Nitroglycerin given with reduction of pain so started on nitroglycerin gtt - stopped this morning. Gave 2mg of morphine with some effect. Trop trending down to 5. Obtained esr/crp given concern for post mi pericarditis/pleuritis. BNP up to 2802. Held of diuresis. CVP 9-11. Radiology wanted to hold off on MRI given Rita in place. CT head 4AM not performed due to orthopnea. Concern for blood clots of upper extremity -> RUE DVT was placed. Subjective Not in acute distress. His blurriness has improved -> now he can see the whole clock which was above the door. Continued to endorse sob, orthopnea, lots of whitish sputum phlegm. Denied chest pain, palpitation, leg swelling, Objective: Telemetry: sinus rhythm , HR 60-70s bpm. Meds: Continuous Infusions: ??? DOBUTamine 2.5 mcg/kg/min (12/01/19 1000) ??? nitroGLYcerin Stopped (12/01/19628) ??? NORepinephrine Stopped (12/01/19537) Scheduled Meds: ??? ezetimibe 10 mg Oral Daily ??? colchicine 0.6 mg Oral BID ??? cefTRIAXone (ROCEPHIN) 1 g vial attach to sodium chloride 0.9% 50 mL Mini- Bag Plus 900 mg Intravenous Once ??? pantoprazole EC 40 mg Oral BID ??? nicotine 1 patch Transdermal Daily And ??? Patch Verification 1 patch Transdermal BID And ??? nicotine 1 patch Transdermal Daily ??? levoFLOXacin in D5W 750 mg Intravenous Q24H ??? metroNIDAZOLE 500 mg Intravenous Q8H BECK ??? melatonin 3 mg Oral Nightly ??? clopidogreL 75 mg Oral Daily ??? cholecalciferol (Vitamin D3) 1,000 Units Oral Daily ??? sodium chloride 0.9 % (flush) 5 mL Intravenous BID PRN Meds:.diphenhydrAMINE, EPINEPHrine, potassium chloride ER OR potassium chloride ER, acetaminophen, nitroGLYcerin, sodium chloride 0.9 % (flush), lidocaine, fentaNYL (PF) OR fentaNYL (PF) Physical Exam: Last value Range last 24 hrs Temperature Temp: 37.8 ??C (100 ??F) Temp: [37.7 ??C (99.9 ??F)-38.7 ??C (101.7 ??F)] Heart Rate Heart Rate: 86 Heart Rate: [80-112] Blood Pressure BP: 111/60 BP: -- Respiratory Rate Resp: 25 Resp: [13-47] SpO2 SpO2: 92 % SpO2: [88 %-99 %] Ventilator Settings: HFNC 70%-> 4L NC Hemodynamics: CVP 6 PAP Sys/Cotton 25/8 PAP mean 15 CO 4.2 CI 2.4 SR 1148 Intake/Output Summary (Last 24 hours) at 12/01/2019 1536 Last data filed at 12/01/2019 1400 Gross per 24 hour Intake 2047.47 ml Output 3475 ml Net -1427.53 ml Lines: Radial L artery line - c/d/i R IJ line - c/d/i Gutierres cumulative I/O's since admission: +689cc Patient Vitals for the past 168 hrs: Weight 12/01/19 0400 70.1 kg (154 lb 8.7 oz) 11/29/19 1515 64.1 kg (141 lb 5 oz) General: Pale, not in acute distress, appropriate. Appears stated age. HEENT: EOMI, PERRL, anicteric sclera. Oropharynx clear w/o lesions. Moist mucous membranes Neck: Supple with normal ROM. No obvious LAD. JVD up to jaw. (+) R IJ Pa Catheter Cardiac: Normal S1 and S2, Regular rate and rhythm; No murmrs/gallops/rubs. Respiratory: Barrel-chested. Nonlabored. Distant lung sound, no obvious wheezes/ rhonci/ rales. Abd: + BS; soft, non-tender, non-distended, no obvious masses. Ext: WWP without le edema, cyanosis or clubbing. DPP 1+ bilaterally. (+) L radial arterial line Neuro: A+Ox4. CN II-XII intact. Negative for diplopia, jonh neglect. Able to draw and number a complete clock. No focal weakness. Skin: No rashs, no lesions, no petechiae Labs Recent Labs 12/01/19 1251 12/01/19 0355 11/30/19 0215 WBC 8.4 11.0* 11.2* HGB 10.8* 10.2* 11.4* HCT 32.4* 31.2* 35.2* PLATELET 72* 98* 122* Recent Labs 12/01/19 0355 11/30/19202911/30/19 0215 NA 132* 136 135 K 4.0 3.9 3.9 CL 105 108* 108* CO2 17* 17* 16* BUN 11 12 13 CREATININE 0.96 0.94 0.90 Recent Labs 11/29/19 1432 AST 257* ALT 50 ALKPHOS 84 BILITOT 0.3 BILIDIR 0.1 Recent Labs 12/01/19 0355 11/30/19202911/30/19 0830 11/30/19 0215 CALCIUM 7.6* 7.9* -- 7.5* MAGNESIUM 0.96 0.79 0.88 -- Recent Labs 11/29/19 1432 INR 1.2 PT 13.5* PTT 114* Recent Labs 12/01/19 0355 11/30/19202911/30/19 0830 11/30/19 0215 11/29/19 1835 CK -- -- 1,645* 1,969* 2,780* TROPONINT 4.35* 5.04* 8.04* 11.73* 17.60* No results for input(s): POCGLU in the last 168 hours. Recent Labs 12/01/19 0355 SEDRATE 25 CRP 92.5* Imaging/Studies: 1. Cardiac Catheterization, 11/29/19: Discrete 90% stenosis in the prox-to-mid RCA. Severe diffuse disease in the distal vessel. Discrete LCX stenosis in a non-culprit artery. S/P DESx3 in the [id number] RCA. Aspiration thrombectomy performed, and integrellin bolus x2+ infusion. Nicardipine given during case due to intermittent sluggish flow. 2. TTE, 11/30/19: 1. The left ventricular chamber size is [...] is no prior study available for comparison. 3. CT head 12/01/19 IMPRESSION 1. Unchanged hemorrhage in the region of the left optic tract with unchanged mild edema. 2. Small lucent lesion within the superior left parietal bone which likely represents a benign hemangioma or venous severino. 3. Dental disease as detailed above. 4. RUE DVT Doppler 12/01/19 Right: No evidence of upper extremity deep or superficial venous thrombus. No evidence of internal jugular vein thrombus. 5. CXR 11/29 IMPRESSION Impression: New/ increased bibasilar opacities since 11/29/2019; differential includes bibasilar atelectasis and small effusions vs aspiration, infection. Upper lungs are clear. No pneumothorax is seen. Assessment [A]: Mr. Angel Luis Salinas is a 74 year old M with a PMH of PAD, HLD, Active Tobacco Use & HTN who was admitted for inferior STEMI [s/p MACARIO to RCA x3, residual LCx disease - non-culprit artery; s/p lytics] with clinical course complicated by RV failure manifesting as cardiogenic shock, for which ionotropic support to be initiated today; additional complications include novel onset, paroxysmal atrial fibrillation [[id number]: 4] & L-sided diplopia with potential hemineglect for which CVA evaluation to be pursued. Mr. Salinas has an active 24hr event significantly for new hemorrhage in his left optic tract which has been stable clinically and with imaging. We continued aspirin today after discussion with MICHELLE. Hemodynamically mckenna he's been supported with dobutamine and stable. He's had worsening pulmonary edema on cxr which responded well to 20mg IV lasix. His intracranial bleed is likely in the setting of being anticoagulated, although suspecting some underlying vascular disease given history of PAD. We are not pursuing MRI brain d/t patient's having Swanz cath. Of note his platelet has been trending down over the past 2-3 days. 4T score of 3 - so will just monitor for now. For antibiotics - we will challenge with beta-lactam dosing and if he's doing well on it we will consider switching to Ceftriaxone and Flagyl. Dobutamine was stopped in afternoon, will recheck wedge later tonight. Plan [P]: --Neurologic-- # Concern for Left-Sided Diplopia, r/o Hemineglect # Concern for CVA, last-known well 11/29/19 - Stroke Team Consulted; recs appreciated - Continue: Plavix. Hold Aspirin as per discussion with Neurosurgery. - Defer: Statin given severe allergy - q2H Neuro Checks - Obtain: Bilateral Carotid Ultrasound - S/P TNK for STEMI on 11/29/19 --Cardiovascular-- Ischemia: # Inferior STEMI [s/p MACARIO x3 to RCA; non-MIRTHA LCx; s/p lytics] # STEMI [LEYLA: 187, DILLON: 7, Killip: 4] - Continue: ASA/Clopidogrel - Defer: Statin given severe allergy - Defer: GDMT [BB, ACEi] given shock physiology - Follow up: TTE - Pending resolution of shock - revascularization to LCx [likely: PCI] - Maintain Telemetry; K>4, Mg>1 - S/P Integrillin Infusion on 11/19/19 #Pericarditis - Elevated CRP. Pain was positional -> start on Colchicine, hold off on high dose aspirin given acute bleed. - Trop trending down, no ekg evidence of re-infarct. Pump: # Cardiogenic Shock - resolving # Acute, Decompensated, Right-Sided HF 2/2 Inferior STEMI - Ionotrope: Weaning off Dobutamine - Pre-Load: no further IVF for now: CVP goal > 10-12 - After-load: not indicated; assess SVR q4H, and if necessary, potential Nipride vs. Captopril - PA Catheter in place; q4H hemodynamic monitoring Anticoagulation/Arrhythmia # Novel Onset, Paroxsymal Atrial Fibrillation [[id number]: 4] - Obtain: TTE - Pending CVA work-up, initiate: Lovenox 1 mg/kg BID - Initiate: Protonix given triple therapy plan [ASA/Plavix/Lovenox] - No rate control at this time - Goal HR < 110 bpm - Maintain Telemetry; K>4, Mg>1 # PAD; HLD # Active Tobacco Use: Contemplation Stage - ASA as above; defer Statin for now - Tobacco team consult --Pulmonary-- # Acute hypoxic respiratory failure, secondary to inferior STEMI - Resolved with diuresis. --Renal/-- # Suspected BPH - Urinary retention protocol w straight cath prn - Hold off tamsulosin d/t low BP. # [place] - [facility] [place] -- Hematology/Oncology-- # Mild Thrombocytopenia, unclear etiology - Maintain: T&S - Monitor for s/s of bleeding - 4T score of 3. ?? Other: - DVT prophylaxis: SCDs - GI prophylaxis: PPI - Home medications: D3 1000U daily (resume), Niacin 500mg ER BID (hold), Red Yeast Rice Extract (hold) - Diet: Cardiac diet, 2g Na - Code Status: DNR/DNI - Dispo:CVCC, pending hemodynamic status. ?? Darrell Glasgow MD, PGY1 PGY3, Internal Medicine Cardiology S2, #[id number] I have seen the patient and reviewed the resident's above history and I agree with the details as written.?The assessment and plan were formulated in discussion with me and I agree with them as documented. I spent >40 minutes reviewing the patient's medical record, labs, and imaging; examiningthe patient at the bedside; and coformulating a plan with the ICU team on bedside rounds. His cardiac indices and hemodynamics appear stable on dobutamine. He does have evidence of pulmonary edema, forwhich we will escalate his diuresis in order for him to lay flat for his head CT. If head CT negative, then ok to resume DAPT per neurology/neurosurgery (appreciate them following in consultation). He also has new onset afib for which he had been anticoagulated in addition to his DAPT - this will needto be on hold for now in lieu of his recent focal bleed. Will discuss role and timing for complete revascularization of his residual LCX disease (non-urgent) down the line. Gretchen Yoon MD Pager [phone] ?? Gretchen Yoon MD Pager [phone] Natalia Claros APRN - 12/01/2019 1:33 AM EDT NEUROSURGERY PROGRESS NOTE ID: Angel Luis Salinas is a 74 y.o. male with hemorrhage in the region of the left optic tract s/p STEMI withPCI and stenting on 11/29/2019. INTERVAL Hx: -MARTIN overnight; neurologically stable -Repeat head CT yesterday stable -Interval head CT for this morning pending MEDICATIONS: Scheduled Meds: ??? pantoprazole EC 40 mg Oral BID ??? nicotine 1 patch Transdermal Daily And ??? Patch Verification 1 patch Transdermal BID And ??? nicotine 1 patch Transdermal Daily ??? levoFLOXacin in D5W 750 mg Intravenous Q24H ??? metroNIDAZOLE 500 mg Intravenous Q8H BECK ??? melatonin 3 mg Oral Nightly ??? clopidogreL 75 mg Oral Daily ??? cholecalciferol (Vitamin D3) 1,000 Units Oral Daily ??? sodium chloride 0.9 % (flush) 5 mL Intravenous BID Continuous Infusions: ??? DOBUTamine 2.5 mcg/kg/min (12/01/19 0600) ??? nitroGLYcerin Stopped (12/01/19 06) ??? NORepinephrine Stopped (12/01/19537) PRN: potassium chloride ER, 20 mEq, Q4H PRN Or potassium chloride ER, 40 mEq, Q4H PRN acetaminophen, 650 mg, Q4H PRN nitroGLYcerin, 0.4 mg, Q5 Min PRN sodium chloride 0.9 % (flush), 5-20 mL, Q1 Min PRN lidocaine, 0.3 mL, Once PRN fentaNYL (PF), 25 mcg, Q30 Min PRN Or fentaNYL (PF), 25 mcg, Q1H PRN EXAM: Temp: [37.3 ??C (99.1 ??F)-38.7 ??C (101.7 ??F)] Heart Rate: [59-112] Resp: [15-47] BP: -- SpO2: [88 %-97 %] Heart Rate from SpO2: [58 bpm-111 bpm] I/O: Intake/Output Summary (Last 24 hours) at 12/01/2019 0742 Last data filed at 12/01/2019 0600 Gross per 24 hour Intake 2975.55 ml Output 2130 ml Net 845.55 ml GEN:Critically ill and frail appearing NEURO: Awake, alert and oriented x 3 Speech fluent and appropriate. PERRL. EOMI. Visual cha full. No facial asymmetry Tongue midline MOTOR: RUE:55 LUE:55 RLE: 5 LLE: 11/03 No pronator drift LABS: Recent Labs 12/01/19 0355 11/30/19 0215 11/29/19 1432 WBC 11.0* 11.2* 14.5* HGB 10.2* 11.4* 13.1* PLATELET 98* 122* 184 Recent Labs 12/01/19 0355 11/30/19 2030 11/30/19 0215 NA 132* 136 135 K 4.0 3.9 3.9 CL 105 108* 108* CO2 17* 17* 16* BUN 11 12 13 CREATININE 0.96 0.94 0.90 Recent Labs 11/29/19 1432 PT 13.5* INR 1.2 IMAGING: CTH/CTA 11/29: IMPRESSION Head CT: Stable hemorrhage in the region of the left optic tract. ?? CTA: Negative exam. No abnormal vasculature in the area of hemorrhage. Assessment: 74 y.o. male with hemorrhage in the region of the left optic tract s/p STEMI with PCI and stenting on 11/29/2019. Neurologically stable. ?? Problem List: Intracranial hemorrhage STEMI PCI with stenting Cardiogenic shock Brain compression Cerebral edema Hypertension ?? Plan: - Neuro checks: Q2 - Agree with MRI brain - Follow up repeat head CT - Goal SBP < 160 - Hold therapeutic anticoagulation - Continue with Plavix - Ok to restart aspirin today if repeat head CT stable - Rest of care per primary team For questions please call [employer] pager [phone] Natalia Claros APRN 12/01/2019 7:42 AM Clinical Documentation Improvement: Active Hospital Problems Diagnosis ??? Acute ST elevation myocardial infarction (STEMI) of inferior wall ??? Intracranial hemorrhage ??? Hyperlipidemia ??? Tobacco abuse ??? Claudication from peripheral vascular disease, left Resolved Hospital Problems No resolved problems to display. Tello Hsu, PROTECTIVE SIGNAL INSTALLER - 11/30/2019 8:44 PM EDT Respiratory Therapy Heated Humidified High Flow INDICATIONS: High O2 requirement and Work of breathing HIGH FLOW SETTINGS: Interface: (S) High flow nasal cannula(Patient had increased WOB and desaturation) Flow: (S) 30 L/min FiO2: (S) 50 % VITAL SIGNS: HR: 94 RR: 28 SpO2: 94 % Last Chest X-ray: Impression Impression: New/ increased bibasilar opacities since 11/29/2019; differential includes bibasilar atelectasis and small effusions vs aspiration, infection. Upper lungs are clear. No pneumothorax is seen. Thank you for letting us participate in the care of this patient. For questions regarding this report, please contact the number below. SSMENT: Patient had increased WOB and desaturation on 4 lpm NC. (20:09) ABG 7.45 27 68 18 (20:15) Placed on HFNC on above settings for WOB and Oygenation. FIO2 gradually increased to 100% and flow to 40 lpm RN/MD aware. (22:39) AB.45 23 76 15 on 100% FIO2 RN/MD aware. BIPAP set up at bedside if needed.PRN order placed. FIO2 weaned gradually down to 80% FIO2 during night. PLAN: Maintain patient comfort and wean FIO2 as tolerated. TELLO HSU, HUA Clement Almaraz - 11/30/2019 4:06 PM EDT Narrative:Visited in response to request for Ict Account Manager services. Pt was awake, alert, oriented and in bed. Assessment:Patient coping positively with stresses of illness/hospitalization at this time. Pt says that he is hoping to get better and pt is living with and has children and grandchildren. Pt haspurpose of life and has reason to get getter and to be with family. Outcome: Provided emotional and spiritual support and encouraging presence. Ict Account Manager services accepted.Conversation to build trusting relationship.Provided pastoral presence.Provided spiritual guidance. Follow up:yes Time; 10 Mins Gretchen Yoon MD - 11/30/2019 10:41 AM EDT Inpatient Cardiology Progress Note Patient Name: Angel Luis Salinas Date of Admission: 11/29/2019 ( Hospital Day 1 day ) Service: S1 ID: Mr. Angel Luis Salinas is a 74 year old M with a PMH of PAD, HLD, Active Tobacco Use & HTN who was admitted for inferior STEMI [s/p MACARIO to RCA x3, residual LCx disease - non-culprit artery; s/p lytics] with clinical course complicated by RV failure manifesting as cardiogenic shock, for which ionotropic support to be initiated today; additional complications include novel onset, paroxysmal atrial fibrillation [[id number]: 4] & L-sided diplopia with potential hemineglect for which CVA evaluationto be pursued. Active Problems/Subjective: - Overnight, CVP < 12 for which a total of 1 L IVF provided - Today AM, patient complains of subjectively reported, left-sided hemineglect with floaters and diplopia [see: exam]. - Otherwise, c/o neck pain 2/2 R IJ Pearblossom & L radial A line. Otherwise, denies angina, dyspnea, orthopnea, lightheadedness, dizziness, aphasia. --- Objective: Telemetry: paroxysms of atrial fibrillation today AM, HR 60-70s bpm. Meds: Continuous Infusions: ??? DOBUTamine 5 mcg/kg/min (11/30/19 0949) ??? NORepinephrine 4 mcg/min (11/30/19 0800) Scheduled Meds: ??? pantoprazole EC 40 mg Oral BID ??? clopidogreL 75 mg Oral Daily ??? aspirin EC 81 mg Oral Daily ??? cholecalciferol (Vitamin D3) 1,000 Units Oral Daily ??? sodium chloride 0.9 % (flush) 5 mL Intravenous BID PRN Meds:.acetaminophen, nitroGLYcerin, sodium chloride 0.9 % (flush), lidocaine, fentaNYL (PF) OR fentaNYL (PF) Physical Exam: Last value Range last 24 hrs Temperature Temp: 37.3 ??C (99.1 ??F) Temp: [37.2 ??C (99 ??F)-37.5 ??C (99.5 ??F)] Heart Rate Heart Rate: 81 Heart Rate: [55-81] Blood Pressure BP: 111/60 BP: (70-164)/(39-109) Respiratory Rate Resp: (!) 32 Resp: [13-32] SpO2 SpO2: 95 % SpO2: [89 %-100 %] Intake/Output Summary (Last 24 hours) at 11/30/2019 1041 Last data filed at 11/30/2019 0800 Gross per 24 hour Intake 3051.9 ml Output 1385 ml Net 1666.9 ml cumulative I/O's since admission: Patient Vitals for the past 168 hrs: Weight 11/29/19 1515 64.1 kg (141 lb 5 oz) General: Pale, not in acute distress, appropriate. Appears stated age. HEENT: EOMI, PERRL, anicteric sclera. Oropharynx clear w/o lesions. Moist mucous membranes Neck: Supple with normal ROM. No obvious LAD. JVD up to jaw. (+) R IJ Pa Catheter Cardiac: Normal S1 and S2, Regular rate and rhythm; No murmrs/gallops/rubs. Respiratory: Barrel-chested. Nonlabored. Clear to auscultation bilaterally; No wheezes/ rhonci/ rales. Abd: + BS; soft, non-tender, non-distended, no obvious masses. Ext: WWP without le edema, cyanosis or clubbing. DPP 1+ bilaterally. (+) L radial arterial line Neuro: A+Ox4. (+) L-sided hemineglect with diplopia. (+) L hemianopia on visual field confrontation. CN 2-12 otherwise intact; 5/5 strength in BUE, BLE. Moving all extremities spontaneously. 2+ reflexes at patellar, brachioradialis tendons. Sensation intact. Normal speech without aphasia noted. Skin: No rashs, no lesions, no petechiae ?? Lines: Right IJ - PA cath PIVs Labs Recent Labs 11/30/1921411/29/19 1432 WBC 11.2* 14.5* HGB 11.4* 13.1* HCT 35.2* 40.8 PLATELET 122* 184 Recent Labs 11/30/1921411/29/19 1432 NA 135 135 K 3.9 4.5 CL 108* 105 CO2 16* 15* BUN 13 16 CREATININE 0.90 0.94 Recent Labs 11/29/19 1432 AST 257* ALT 50 ALKPHOS 84 BILITOT 0.3 BILIDIR 0.1 Recent Labs 11/30/1921411/29/19 1432 CALCIUM 7.5* 8.0* MAGNESIUM -- 0.76 Recent Labs 11/29/19 1432 INR 1.2 PT 13.5* PTT 114* Recent Labs 11/30/19 0830 11/30/195 11/29/19 1835 CK 1,645* 1,969* 2,780* TROPONINT 8.04* 11.73* 17.60* No results for input(s): POCGLU in the last 168 hours. Imaging/Studies: 1. Cardiac Catheterization, 11/29/19: Discrete 90% stenosis in the prox-to-mid RCA. Severe diffuse disease in the distal vessel. Discrete LCX stenosis in a non-culprit artery. S/P DESx3 in the [id number] RCA. Aspiration thrombectomy performed, and integrellin bolus x2+ infusion. Nicardipine given during case due to intermittent sluggish flow. 2. TTE, 11/30/19: Ordered/Pending Assessment [A]: Mr. Angel Luis Salinas is a 74 year old M with a PMH of PAD, HLD, Active Tobacco Use & HTN who was admitted for inferior STEMI [s/p MACARIO to RCA x3, residual LCx disease - non-culprit artery; s/p lytics] with clinical course complicated by RV failure manifesting as cardiogenic shock, for which ionotropic support to be initiated today; additional complications include novel onset, paroxysmal atrial fibrillation [[id number]: 4] & L-sided diplopia with potential hemineglect for which CVA evaluation to be pursued. Plan for revascularization to non-infarct related artery - namely, LCx pending resolution of cardiogenic shock 2/2 RV dysfunction; pending CVA evaluation, namely, confirmation that no ICH present on CTHead, will pursue anticoagulation for high-risk, novel onset, atrial fibrillation. Plan [P]: --Neurologic-- # Concern for Left-Sided Diplopia, r/o Hemineglect # Concern for CVA, last-known well 11/29/19 - STAT CT Head - Stroke Team Consulted; recs appreciated - 12 Lead obtained for paroxysm of atrial fibrillation - Continue: ASA/Clopidogrel - Defer: Statin given severe allergy - q2H Neuro Checks - Obtain: TTE - Obtain: Bilateral Carotid Ultrasound - Maintain Telemetry; K>4, Mg>1 - Hold: Lovenox for pAF until CT Head confirms no ICH - S/P TNK for STEMI on 11/29/19 - Last Known Well: 11/29/19, unknown time --Cardiovascular-- Ischemia: # Inferior STEMI [s/p MACARIO x3 to RCA; non-MIRTHA LCx; s/p lytics] # STEMI [LEYLA: 187, DILLON: 7, Killip: 4] - Continue: ASA/Clopidogrel - Defer: Statin given severe allergy - Defer: GDMT [BB, ACEi] given shock physiology - Follow up: TTE - Pending resolution of shock - revascularization to LCx [likely: PCI] - Maintain Telemetry; K>4, Mg>1 - S/P Integrillin Infusion on 11/19/19 Pump: # Cardiogenic Shock # Acute, Decompensated, Right-Sided HF 2/2 Inferior STEMI # RV Dysfunction in t/s/o Inferior STEMI - Ionotrope: Initiate - Dobutamine; attempt to wean Levophed gtt - Pre-Load: no further IVF for now: CVP goal > 10-12 - After-load: not indicated; assess SVR q4H, and if necessary, potential Nipride vs. Captopril - PA Catheter in place; q4H hemodynamic monitoring - Follow up: TTE - Pending resolution of shock - revascularization to LCx [likely: PCI] Anticoagulation/Arrhythmia # Novel Onset, Paroxsymal Atrial Fibrillation [[id number]: 4] - Obtain: TTE to confirm rhythm - Pending CVA work-up, initiate: Lovenox 1 mg/kg BID - Initiate: Protonix given triple therapy plan [ASA/Plavix/Lovenox] - No rate control at this time - Goal HR < 110 bpm - Maintain Telemetry; K>4, Mg>1 # PAD; HLD # Active Tobacco Use: Contemplation Stage - ASA as above; defer Statin for now - Tobacco team consult --Pulmonary-- # No active issues --Renal/-- # Suspected BPH - Urinary retention protocol w straight cath prn - Hold off tamsulosin d/t low BP. # Nutrition - [facility] [place] -- Hematology/Oncology-- # Mild Thrombocytopenia, unclear etiology - Maintain: T&S - Monitor for s/s of bleeding ?? Other: - DVT prophylaxis: on therapeutic anticoagluation - Lovenox - GI prophylaxis: Not indicated - Home medications: D3 1000U daily (resume), Niacin 500mg ER BID (hold), Red Yeast Rice Extract (hold) - Diet: Cardiac diet, 2g Na - Code Status: DNR/DNI - Dispo:CVCC ?? Lewis Gee MD, PGY3 PGY3, Internal Medicine Cardiology S2, #[id number] I have seen the patient and reviewed the resident's above history and I agree with the details as written. The assessment and plan were formulated in discussion with me and I agree with them as documented. I spent >35 minutes reviewing the patient's medical record, labs, and imaging; examining the patient at the bedside; and coformulating a plan with the ICU team on bedside rounds. We are continuing to support him hemodynamically as he is in RV failure - will transition from norepinephrine to dobutamine. He does report new visual field deficits for which we have consulted neurology and ordered for head imaging. He also has new onset afib for which he is being anticoagulated in addition to his DAPT. Will discuss role and timing for complete revascularization of his residual LCX disease (non-urgent) down the line. Gretchen Yoon MD Pager [phone] Paola Capps RN - 11/30/2019 6:57 AM EDT PT still requiring 4 of levo, several attempts to titrate down (maps in 70;s) But maps would drop toless than 65. Pt very restless in bed Raising and lowering head denies pain . Integrillin stopped [id number] when bottle complete , urine tea colored Until 0600 when pt developed hematuria (Kimmy colored urine) PA pressures high 20's over 8-10 when pt sleeping . CVP between 8-11 this am Maps greater than 65 MDaware . Right wrist benign documented in this encounter H&P Notes Gretchen Yoon MD - 11/29/2019 1:51 PM EDT Cardiology Admission History and Physical Patient Name: Angel Luis Salinas Service: S2 Team Responsible Attending: Gretchen Yoon MD PCP: France Lam MD PCP phone #: [phone] Poultry Picker: None ID/Chief Complaint: Chest pain History of Present Illness: 74 y.o male with no significant PMH, was in usual state of health until yesterday when he woke up at 4am this morning with severe crushing substernal chest pain 10/. He took two full strength aspirin and came to [facility] ED. At there was found to have ST elevation in inferior leads, slightly elevated troponin of 0.08. A STEMI code was called. He received Heparin bolus and gtt, loading of aspirin, plavix, TNK and sublingual nitrates. He's still having significant pain /10 after these interventions, with no significant ST changes to interval EKG. He then had some nausea and vomiting and was treated with 1 time of Zofran and Compazine. He was transferred directly to [facility] [place] [facility] for further management. Patient had an emergent PCI with 3 MACARIO stents placed to his RCA, with mild disease of LCX (report pending) at [facility]. He was found to be persistently hypotensive requiring Levo up to 10mcg/min. He was transferred to [facility] after the cath procedure. Bedside RHC showed CI 2.12, PAWP 11, PAP 38/15 indicating hypovolemic state. He received 1L bolus of NS with improvement of his blood pressure to 124/61. History of PAD, HLD - had side reactions to statins - so taking niacin and red rye grain. Chronic active smoker with more than 65 pack years. Family history of [place] in father and two uncles. He's takingbaby aspirin every other day. OSH labs prior to transfer: CBC: Unavailable CMP: Na 134, K 3.3, BUN 21 Cr 1.43 Cardiac enzymes: Tn- 0.08 CK-Unavailable Other labs: Review of Systems: GENERAL HEENT CV PULM All negative All negative All negative All negative Weight loss Headache Chest Pain Non-productive cough Weight gain Vision change Palpitations Productive cough Fevers Sinus congestion x Orthopnea Wheezing Chills Hoarseness LE edema Hemoptysis Night sweats Epistaxis PND Pleuritic pain x Fatigue Syncope x SOB Claudication [facility] GI All negative All negative All negative All negative Arthralgias Frequency Heat intolerance Blood in stool Myalgias Urgency Cold intolerance Dysphagia Weakness Hematuria Polydipsia Odynophagia Stiffness Flank pain Polyphagia Abdominal discomfort Dysuria Cushingoid Constipation Foamy urine Diarrhea Discharge Nausea/Vomiting LYMPH SKIN NEURO PSYCH All negative All negative All negative All negative Swollen nodes Rash Seizures Depressed affect Tender nodes Ulcers Tremors Occupational stress Diffuse nodes Bruising Spasticity Anxiety Local nodes Tanned skin Focal weakness Insomnia Night sweats Telangiectasias Diplopia Paresthesias Dizziness Problem List/Past Medical History Patient Active Problem List Diagnosis ??? STEMI (ST elevation myocardial infarction) ??? Hyperlipidemia ??? Tobacco abuse ??? Alcohol abuse Sober since 08/1989 ??? Hearing loss of both ears ??? Tinnitus of both ears ??? Claudication from peripheral vascular disease, left Meds: No current facility-administered medications on file prior to encounter. Current Outpatient Medications on File Prior to Encounter Medication Sig Dispense Refill ??? cholecalciferol, Vitamin D3, 400 unit tablet Take 1,000 Units by mouth daily. ??? aspirin 81 mg EC tablet Take 81 mg by mouth daily. Pt takes every other day ??? Red Yeast Rice Extract 600 mg Cap Take by mouth daily. ??? niacin (NIASPAN ER) 500 mg ER tablet Take 500 mg by mouth 2 times daily (with meals). Allergies: Allergies Allergen Reactions ??? Penicillins Pt doesn't remember reaction ??? Xaltudj-Mqh-Egm Reductase Inhibitors Stiff neck, upset stomach, back pain Family History: Mother: Father: [place] 2 Uncles with MIs Social History: Tobacco: Current active smoker 1 ppd. 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 Vitals: Last value Range last 24 hrs Temperature Temp: -- Heart Rate Heart Rate: 78 Heart Rate: [55-81] Blood Pressure BP: 111/60 BP: (70-164)/(39-109) Respiratory Rate Resp: 27 Resp: [13-30] SpO2 SpO2: 100 % SpO2: [89 %-100 %] Examination: General: Pale, not in acute distress, appropriate. Appears stated age. HEENT: EOMI, PERRL, anicteric sclera. Oropharynx clear w/o lesions. Moist mucous membranes Neck: Supple with normal ROM. No obvious LAD. JVD up to jaw. Cardiac: Normal S1 and S2, Regular rate and rhythm; No murmrs/gallops/rubs. Respiratory: Barrel-chested. Nonlabored. Clear to auscultation bilaterally; No wheezes/ rhonci/ rales. Abd: + BS; soft, non-tender, non-distended, no obvious masses. Ext: WWP without le edema, cyanosis or clubbing. DPP 1+ bilaterally. Neuro: II-XII grossly intact. Alert and orientated, no-focal deficits Skin: No rashs, no lesions, no petechiae Lines: Right IJ - PA cath PIVs Laboratory: CBC: Recent Labs 11/29/19 1432 WBC 14.5* HGB 13.1* PLATELET 184 Chemistry: Recent Labs 11/29/19 1432 NA 135 K 4.5 CL 105 CO2 15* BUN 16 CREATININE 0.94 GLUCOSE 149 Recent Labs 11/29/19 1432 CALCIUM 8.0* MAGNESIUM 0.76 LFT's: Recent Labs 11/29/19 1432 BILITOT 0.3 BILIDIR 0.1 ALBUMIN 3.6 ALKPHOS 84 ALT 50 AST 257* Coags: Recent Labs 11/29/19 1432 PT 13.5* INR 1.2 PTT 114* Cardiac enzymes: Recent Labs 11/29/19 1432 TROPONINT 20.33* CK 3,282* Endocrine: No results for input(s): TSH, CORTISOL in the last 7068 hours. Invalid input(s): [id number] Heme: No results for input(s): LDH, HAPTOGLOBIN, URICACID in the last 168 hours. Microbiology: None Diagnostic Studies: EKG- Reviewed OSH - inferior ST elevations -> 12pm: evolving Q infarcts seen on II, III, AvF. ST elevation resolving on inferior leads. CXR- pending RHC - As above in HPI formal result pending. ASSESSMENT: 74 y.o male with history of PAD, HLD, chronic active smoker, who is admitted for inferior STEMI associated with RV impairment. Patient received heparin and lytics from OSH prior to transfer and PCI at [facility]. Massive inferior STEMI with troponin level 20, currently in CVCC due to pressor requirement. BedsideRHC demonstrated evidence of elevated right sided heart failure, but his wedge was wnl. He received 1L bolus with improvement of his blood pressure and reduction of his pressor requirement. PLAN: Admit to Cardiology, S2 Team Pager # [phone] #Inferior STEMI, LEYLA [phone] - Resolving EKG changes with q waves, chest pain free at the moment. - Trending troponin, ck q6h to peak - Telemetry - Currently finishing Integrillin infusion GDMT: - Loaded with aspirin, c/w aspirin 81mg qd - Loaded with Plavix, c/w Plavix 75mg qd - Reported long standing history of statin intolerance (rash, myalgia) - hold statin - Hold beta-kely and GOPAL-I in setting of hypotension and acute decompensated HF. Risk factors: - f/u lipid panel, Hemoglobin a1c #Isolated acute onset right sided HF secondary to inferior STEMI - High PAP with normal wedge pressure. - 1L NS bolus - On Levo for pressor support, goal MAP >65 - Echo pending #PAD, HLD #Active smoker - Tobacco team consult #Suspected BPH - Urinary retention protocol w straight cath prn - Hold off tamsulosin d/t low BP. Other: - DVT prophylaxis: on therapeutic anticoagluation - GI prophylaxis: Not indicated - Home medications: D3 1000U daily (resume), Niacin 500mg ER BID (hold), Red Yeast Rice Extract (hold) - Diet: Cardiac diet, 2g Na - Code Status: DNR/DNI - Dispo:CVCC Darrell Glasgow MD PGY1 I have seen the patient and reviewed the resident's above history and I agree with the details as written. The assessment and plan were formulated in discussion with me and I agree with them as documented. 74 yo man with inferior STEMI s/p lytic therapy. Transferred to [facility] and underwent successful PCI of the RCA with MACARIO x3. Gretchen Yoon MD Pager [phone] documented in this encounter Procedure Notes Juventino Concepcion MD - 11/29/2019 6:07 PM EDTProcedure(s): PRO INSERT ARTERIAL PERCUTANEOUS CATH FOR MONITORING/TRANSFUSION Arterial Line Placement Procedure Note Indication for Procedure: Arterial line was placed for invasive blood pressure monitoring, arterial blood gases, access and blood sampling for laboratory test. Procedure Diagnosis: STEMI with hypotension Location of Procedure: Critical Care. Risks and Benefits: The risks and benefits of this procedure were reviewed and informed consent was obtained. Time Out: Prior to the start of the procedure, the patient's identity, intended procedure, site/side, correct patient positioning and presence of the site fidelina was confirmed as applicable. The medical history and chart were reviewed to rule out potential contraindications to the planned procedure. 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 Procedure Prep: Sterile draping was applied. Skin was prepped with chlorhexidine. 3 ml of 1% Lidocaine was used for local anesthesia. Full barrier precautions were used. Procedure Details: A 20 gauge, 2 inch catheter was placed in the left radial artery and secured withsteri-strips. Tegaderm was applied.. There was 1 attempt. Findings: There were no procedure complications. Blood was drawn with ease. Good wave form. SenserCedric MD - 11/29/2019 1:00 PM EDTProcedure(s): CATHETER PLACEMENT, RIGHT HEART OR MAIN PULMONARY ARTERY Pre-Procedure Diagnose(s): ST elevation myocardial infarction involving right coronary artery Post-Procedure Diagnose(s): ST elevation myocardial infarction involving right coronary artery Pulmonary Arterial Line Placement Procedure Note Indications: Catheter placed for diagnosis and treatment of instability. This insertion was not to replace a malfunctioning catheter. This insertion was not due to a suspected line-associated infection. Location of Procedure: [facility] Risks and Benefits: The risks and benefits of this procedure were reviewed and informed consent was obtained obtained. Time Out: Prior to the start of the procedure, the patient's identity, intended procedure, site/side, correct patient positioning and presence of the site fidelina was confirmed as applicable. The medical history and chart were reviewed to rule out potential contraindications to the planned procedure. 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 Procedure Technique: Skin was prepped with chlorhexidine. Skin preparation agent was completely dry at the time of first skin puncture. The following barrier precaution methods were used:large sterile drape, maske/eye shield, large sterile gown, sterile gloves and cap. 7 ml of 1% Lidocaine was used for skin wheal. Ultrasound was used for guidance. Procedure Details: Insertion Site:internal jugular side:right An Introducer (PSI Kit) was used. [place]. Insertion Side: right. Insertion Site: internal jugular. Catheter Details: Number of Lumens: 1 Catheter Type: heparin-coated The line was placed over a guidewire. Confirmation of Venous Placement: Venous placement was confirmed by transducing the pressure. Introducer Insertion Attempts: 1 Comments: Floating the Pearblossom-Mo Catheter Attempts: 1 Comments: Sterile Dressing: Biopatch Findings: Distance From Introducer (cm): Complications: No complications. Post Procedure: Chest X-ray ordered. Procedure Comments: Associated attestation - Juventino Concepcion MD - 11/30/2019 6:07 AM EDT I was the attending physician supervising the resident in the above care and I was present with the resident for the doss component(s) of the procedure and remained immediately available throughout the remainder. documented in this encounter Miscellaneous Notes Plan of Care - Russell Ventura RN - 12/08/2019 2:59 AM EDT Problem: Patient Care Overview Goal: Plan of Care Review Outcome: Ongoing (Interventions Implemented as Appropriate) 12/04/19164612/07/192128 Coping/Psychosocial Plan Of Care Reviewed With -- patient Plan of Care Review Progress progress toward functional goals is gradual -- OUTCOME EVALUATION NOTE: OUTCOME SUMMARY: Angel Luis had a good night. VS/I&O as documented, see flowsheet. NSR-SB 36-70s w/ frequent PACs and PVCs on telemetry, see scanned docs. Pt denies CP and SOB. Heparin gtt and amio gtt remain on as ordered, IV sites x2 WNL. Call churchill within reach. Will continue to monitor. PLAN MOVING FORWARD: Medication management. Discharge Planning. CPG GOAL OUTCOME EVALUATION: Ongoing. Goal: Fall Prevention-Safe Patient Handling Outcome: Ongoing (Interventions Implemented as Appropriate) 12/07/19199912/07/19212812/08/19 0200 Daily Care Interventions Self-Care Promotion -- -- -- Beyer Fall Risk History of Falling -- 0 -- Secondary Diagnosis -- 15 -- Ambulatory Aids -- 15 -- Intravenous Therapy/Heparin/Saline Lock -- 20 -- Gait/Transferring -- 10 -- Mental Status -- 0 -- Score -- 60 -- OTHER Beyer Fall Risk -- High -- Restraint Interventions Safety Promotion/Fall Prevention -- -- safety round/check completed Positioning Body Position independent -- -- Activity Activity Type ambulated to bathroom -- -- Activity Assistance Provided assistance, stand-by -- -- Assistive Device Utilized front-wheel walker -- -- 12/08/19 0248 Daily Care Interventions Self-Care Promotion independence encouraged;BADL personal objects within reach;BADL personal routines maintained Beyer Fall Risk History of Falling -- Secondary Diagnosis -- Ambulatory Aids -- Intravenous Therapy/Heparin/Saline Lock -- Gait/Transferring -- Mental Status -- Score -- OTHER Beyer Fall Risk -- Restraint Interventions Safety Promotion/Fall Prevention -- Positioning Body Position -- Activity Activity Type -- Activity Assistance Provided -- Assistive Device Utilized -- Goal: Infection Control Outcome: Ongoing (Interventions Implemented as Appropriate) 12/07/19199912/07/192128 Safety Interventions Isolation Precautions standard precautions maintained -- Infection Prevention barrier precautions utilized;cohorting utilized;environmental surveillance performed;equipment surfaces disinfected;personal protective equipment utilized;rest/sleep promoted;visitors restricted/screened -- Coping Strategies Supportive Measures -- active listening utilized;relaxation techniques promoted;self-care encouraged;verbalization of feelings encouraged Consult Note - Sarah Boyer RN - 12/07/2019 2:25 PM EDT Called to pt bedside, pt in Afib rvr 180's. Converted to SR with a dose of metoprolol however pt would continue to flip back and forth from afib/sr. Pt symptomatic stating he felt dizzy, sbp remained stable in 90-100's. Additional IV placed and amiodarone bolus given continued with infusion at 1. 2gm iv mag given as well. Pt feeling much better pt back in SR. Please page [phone] for any more cares or concerns Plan of Care - Mukesh Bentley RN - 12/07/2019 4:19 AM EDT Problem: Patient Care Overview Goal: Plan of Care Review 12/04/19 1647 12/06/19 1928 Coping/Psychosocial Plan Of Care Reviewed With -- patient Plan of Care Review Progress progress toward functional goals is gradual -- OUTCOME EVALUATION NOTE: OUTCOME SUMMARY: Pt A&Ox4. Heparin gtt maintained per protocol. Pt Hypotensive around midnight SBP 70s-80s/50s, pt asymptomatic, MD Lam notified, 250ml LR bolus given. See flowsheet for VS and I/O. Patient denies pain or SOB. See tele report. Call churchill within reach. Will continue to monitor. PLAN MOVING FORWARD: Discharge planning as appropriate INDIVIDUALIZED FALL PREVENTION INTERVENTIONS: Patient-specific fall risk factors per assessment: [current deficits]: Tele, IV Assistance [level of assistance required for transfers and ambulation]: SBA Supervision [direct monitoring required during toileting and ADLs]: Ind Surveillance [continuous indirect monitoring]: Tele, hourly rounding Patient-specific fall prevention interventions for sensory deficits provided, if applicable: [X] N/A CPG GOAL OUTCOME EVALUATION: Ongoing assessment Goal: Fall Prevention-Safe Patient Handling 12/06/19192712/07/19 0350 12/07/19 0400 Beyer Fall Risk History of Falling 0 -- -- Secondary Diagnosis 15 -- -- Ambulatory Aids 15 -- -- Intravenous Therapy/Heparin/Saline Lock 20 -- -- Gait/Transferring 10 -- -- Mental Status 0 -- -- Score 60 -- -- OTHER Beyer Fall Risk High -- -- Restraint Interventions Safety Promotion/Fall Prevention -- -- fall prevention program maintained;nonskid shoes/slippers when out of bed;safety round/check completed Positioning Body Position -- independent -- Activity Activity Type activity adjusted per tolerance -- -- Activity Assistance Provided assistance, stand-by -- -- Assistive Device Utilized none -- -- Goal: Infection Control 12/06/191927 Safety Interventions Isolation Precautions standard precautions maintained Infection Prevention environmental surveillance performed;personal protective equipment utilized;equipment surfaces disinfected;rest/sleep promoted Coping Strategies Supportive Measures active listening utilized;decision-making supported;positive reinforcement provided;self-care encouraged;verbalization of feelings encouraged Plan of Care - Amaya Anderson RN - 12/06/2019 6:45 PM EDT Problem: Patient Care Overview Goal: Plan of Care Review Outcome: Ongoing (Interventions Implemented as Appropriate) 12/04/19 1647 12/06/19 0800 Coping/Psychosocial Plan Of Care Reviewed With -- patient Plan of Care Review Progress progress toward functional goals is gradual -- OUTCOME EVALUATION NOTE: OUTCOME SUMMARY: Angel Luis is A&Ox4, afib on tele with rates 70-170s. VSS, see flow sheets. Denies pain and SOB throughout the shift. Ambulated in sales and reports some SOB, O2 sat maintained in mid 90s. Heparin gtt maintained, see MAR. Neuro checks WDL, see flow sheets. Attempted to obtain EKG during rapid rates to not avail. SBA to BR> Call churchill in use, will continue to monitor. PLAN MOVING FORWARD: Heparin gtt, monitor VS INDIVIDUALIZED FALL PREVENTION INTERVENTIONS: Patient-specific fall risk factors per assessment: [current deficits]: Unfamiliar hospital environment, tele leads, IV sites Assistance [level of assistance required for transfers and ambulation]: SBA Supervision [direct monitoring required during toileting and ADLs]: Purposeful hourly nursing rounding, call churchill in use Surveillance [continuous indirect monitoring]: Telemetry, SpO2 Patient-specific fall prevention interventions for sensory deficits provided, if applicable: [X] N/A CPG GOAL OUTCOME EVALUATION: Plan progressing. Goal: Fall Prevention-Safe Patient Handling Outcome: Ongoing (Interventions Implemented as Appropriate) 12/05/19 19512/06/19 1200 12/06/19 1600 Beyer Fall Risk History of Falling 0 -- -- Secondary Diagnosis 15 -- -- Ambulatory Aids 15 -- -- Intravenous Therapy/Heparin/Saline Lock 20 -- -- Gait/Transferring 10 -- -- Mental Status 0 -- -- Score 60 -- -- OTHER Beyer Fall Risk High -- -- Restraint Interventions Safety Promotion/Fall Prevention -- -- activity supervised;nonskid shoes/slippers when out of bed;safety round/check completed Positioning Body Position -- independent;up in chair -- Activity Activity Type -- -- -- Activity Assistance Provided -- -- -- Assistive Device Utilized -- -- -- 12/06/19 1700 Beyer Fall Risk History of Falling -- Secondary Diagnosis -- Ambulatory Aids -- Intravenous Therapy/Heparin/Saline Lock -- Gait/Transferring -- Mental Status -- Score -- OTHER Beyer Fall Risk -- Restraint Interventions Safety Promotion/Fall Prevention -- Positioning Body Position -- Activity Activity Type activity adjusted per tolerance Activity Assistance Provided assistance, stand-by Assistive Device Utilized none Goal: Infection Control Outcome: Ongoing (Interventions Implemented as Appropriate) 12/06/19 0800 12/06/19 1600 Safety Interventions Isolation Precautions -- standard precautions maintained Infection Prevention -- barrier precautions utilized;cohorting utilized;equipment surfaces disinfected;environmental surveillance performed;personal protective equipment utilized;rest/sleep promoted Coping Strategies Supportive Measures active listening utilized;self-care encouraged;self- reflection promoted;self-responsibility promoted;verbalization of feelings encouraged -- Plan of Care - Mukesh Bentley RN - 12/06/2019 3:49 AM EDT Problem: Patient Care Overview Goal: Plan of Care Review 12/04/19 1647 12/05/191952 Coping/Psychosocial Plan Of Care Reviewed With -- patient Plan of Care Review Progress progress toward functional goals is gradual -- OUTCOME EVALUATION NOTE: OUTCOME SUMMARY: Pt A&Ox4. See flowsheet for VS and I/O. Patient denies pain or SOB. Pt in SR/SB (HR 40-88, non divya 39) w/ int afib HR 120-140s. Call churchill within reach. Will continue to monitor. PLAN MOVING FORWARD: Discharge planning as appropriate, palliative consult INDIVIDUALIZED FALL PREVENTION INTERVENTIONS: Patient-specific fall risk factors per assessment: [current deficits]: Tele, IV, generalized weakness Assistance [level of assistance required for transfers and ambulation]: SBA Supervision [direct monitoring required during toileting and ADLs]: Ind Surveillance [continuous indirect monitoring]: Tele. Hourly rounding Patient-specific fall prevention interventions for sensory deficits provided, if applicable: [X] N/A CPG GOAL OUTCOME EVALUATION: Ongoing assessment Goal: Fall Prevention-Safe Patient Handling 12/05/19195212/05/19 2350 Beyer Fall Risk History of Falling 0 -- Secondary Diagnosis 15 -- Ambulatory Aids 15 -- Intravenous Therapy/Heparin/Saline Lock 20 -- Gait/Transferring 10 -- Mental Status 0 -- Score 60 -- OTHER Beyer Fall Risk High -- Restraint Interventions Safety Promotion/Fall Prevention -- fall prevention program maintained;nonskid shoes/slippers when out of bed;safety round/check completed Positioning Body Position independent -- Activity Activity Type activity adjusted per tolerance -- Activity Assistance Provided assistance, stand-by -- Assistive Device Utilized none -- Goal: Infection Control 12/05/191952 Safety Interventions Isolation Precautions standard precautions maintained Infection Prevention environmental surveillance performed;equipment surfaces disinfected;personal protective equipment utilized;rest/sleep promoted Coping Strategies Supportive Measures active listening utilized;decision-making supported;positive reinforcement provided;self-care encouraged;verbalization of feelings encouraged Plan of Care - Angel Luis Navarrete OTA - 12/05/2019 1:46 PM EDT Occupational Therapy Treatment Note Treatment Number OT: 2 Patient Dx: Angel Luis Salinas is a 74 y.o. male admitted on 11/29/2019 who was admitted for inferior STEMI [s/p MACARIO to RCA x3, residual LCx disease - non- culprit artery; s/p lytics] with clinical course complicated by RV failure manifesting as cardiogenic shock, for which ionotropic support to be initiated today; additional complications include novel onset, paroxysmal atrial fibrillation [[id number]: 5]& L-sided diplopia with potential hemineglect for which CVA evaluation to be pursued.?MRI brain showed known hemorrhagic bleed, but also possible small embolic stroke at right occipital lobe Precautions/Special Considerations: HR less than 110, bleeding precautions, DNR, supplemental O2 2 liters ?? Interval History: NAYELI S: I'm familiar with all of this. RE pacing himself O: Patient seen for skilled OT treatment, and demonstrated the following: ?? Self-care: ?? Pt educated on energy conservation, pacing and safety information. Pt verbalized his understanding and discussed his plan for returning home. ?? Functional Mobility: ?? Per pt and RN pt has been mobilizing with then with SBA ?? Cognition: ?? Behavior / Mood: alert and cooperative ?? Alert and oriented to: person, place, time and situation ?? Follows commands: multi step ?? Attention: WFL ?? Safety awareness: WFL ?? Vision:WFL ?? Endurance:Fair ?? Vitals: VSS ?? Strength/ROM:B UE WFL Pain: Pt did not complain of pain at this time Education: Pt/family/caregiver education ongoing regarding: Role of occupational therapy/rehabilitation, Safety and Activity pacing/Energy conservation. Staff Communication: Patient status, treatment, and mobility recommendations discussed with nursing/other staff. ASSESSMENT: Pt seen this afternoon for skilled OT. Session focussed on pt education on energy conservation, safety and pacing. Pt verbalized his understanding and discussed his plan for returning home.Pt will benefit from ongoing therapeutic interventions to achieve pt's and therapy goals Anticipated Discharge Disposition: home with assist, home with home health Equipment Recommendations: Pt has FWW and shower chair ?? Daily schedule / Staff Recommendations: Utilize upright chair position using bed features or transfer to recliner chair as appropriate with SBA/CTG A with walker, ambulate as tolerated ?? Encourage participation in ADL's by providing set up A on tray table and physical assist only as needed ?? Occupational Therapy Goals: To be achieved by d/c. Patient will stand at sink level with independently x10 min for ADLs. Patient will dress lower body indep with adaptive equipment prn. Patient will perform simple kitchen mgt with appropriate assistive device as needed and independent. Patient will ambulate to the bathroom with independently, assistive device as needed. Patient will demonstrate energy conservation principals with all ADLs indep. ?? Therapy Frequency: 1-3 more visits Total Evaluation Minutes, Occupational Therapy: 10 Pager: [phone] FRANCINE Nuñez Occupational Therapy Rehabilitation Department Plan of Care - Mukesh Bentley RN - 12/05/2019 4:03 AM EDT Problem: Patient Care Overview Goal: Plan of Care Review 12/04/19 1647 12/04/19 1935 Coping/Psychosocial Plan Of Care Reviewed With -- patient Plan of Care Review Progress progress toward functional goals is gradual -- OUTCOME EVALUATION NOTE: OUTCOME SUMMARY: Pt A&Ox4. See flowsheet for VS and I/O. Patient denies pain or SOB. See tele report. Call churchill within reach. Will continue to monitor. PLAN MOVING FORWARD: Discharge planning as appropriate INDIVIDUALIZED FALL PREVENTION INTERVENTIONS: Patient-specific fall risk factors per assessment: [current deficits]: Tele, IV Assistance [level of assistance required for transfers and ambulation]: SBA Supervision [direct monitoring required during toileting and ADLs]: Ind Surveillance [continuous indirect monitoring]: Tele, hourly rounding Patient-specific fall prevention interventions for sensory deficits provided, if applicable: [X] N/A CPG GOAL OUTCOME EVALUATION: Ongoing assessment Goal: Fall Prevention-Safe Patient Handling 12/04/19193412/04/19 2340 Beyer Fall Risk History of Falling 0 -- Secondary Diagnosis 15 -- Ambulatory Aids 15 -- Intravenous Therapy/Heparin/Saline Lock 20 -- Gait/Transferring 10 -- Mental Status 0 -- Score 60 -- OTHER Beyer Fall Risk High -- Restraint Interventions Safety Promotion/Fall Prevention -- fall prevention program maintained;nonskid shoes/slippers when out of bed;safety round/check completed Positioning Body Position independent -- Activity Activity Type activity adjusted per tolerance -- Activity Assistance Provided assistance, stand-by -- Assistive Device Utilized none -- Goal: Infection Control 12/04/191934 Safety Interventions Isolation Precautions standard precautions maintained Infection Prevention environmental surveillance performed;equipment surfaces disinfected;personal protective equipment utilized;rest/sleep promoted Coping Strategies Supportive Measures active listening utilized;decision-making supported;positive reinforcement provided;self-care encouraged;verbalization of feelings encouraged Plan of Care - Kailyn Chung RN - 12/04/2019 5:35 PM EDT Problem: Patient Care Overview Goal: Plan of Care Review Outcome: Ongoing (Interventions Implemented as Appropriate) 12/04/19 1647 Coping/Psychosocial Plan Of Care Reviewed With patient Plan of Care Review Progress progress toward functional goals is gradual OUTCOME EVALUATION NOTE: OUTCOME SUMMARY: A&Ox4. No reports of CP or SOB. Denies pain. PT worked with patient this AM. Cardiac CT this afternoon. Intermittent bursts of A-flutter thru shift. HR elevated 170-190s this AM. (S2 team) notified - see previous note. Metoprolol IVP given. Burst rates remained in 150-170s. MD notified. PO metoprolol dose readjusted. Rates improved this afternoon in 120-130s. Ambulated in hallway x2 (1-2 loops). Tolerated well. Reported SOB after ambulation. SpO2 @ 94-95% on RA. VSS - see flowsheet. SR/SB with intermittent A-flutter bursts, rates 50-180s, w/ frequent ectopy - see scanned docs. No drips running. PLAN MOVING FORWARD: Plan for possible discharge tomorrow? Continue to actively monitor. Discharge planning as appropriate. INDIVIDUALIZED FALL PREVENTION INTERVENTIONS: Patient-specific fall risk factors per assessment: [current deficits]: Tele/Masimo wires; generalized weakness; assistive equipment requirement; unfamiliar environment Assistance [level of assistance required for transfers and ambulation]: Stand-by assist w/ FWW Supervision [direct monitoring required during toileting and ADLs]: Arms reach Surveillance [continuous indirect monitoring]: Tele/Masimo; purposeful hourly rounding; call churchill within reach Patient-specific fall prevention interventions for sensory deficits provided, if applicable: Lighting adjusted for specific task/activity; non-skid socks; bed in locked/lowest position CPG GOAL OUTCOME EVALUATION: Ongoing Goal: Fall Prevention-Safe Patient Handling 12/04/19 0800 12/04/19 1524 12/04/19 1600 Beyer Fall Risk History of Falling 0 -- -- Secondary Diagnosis 15 -- -- Ambulatory Aids 15 -- -- Intravenous Therapy/Heparin/Saline Lock 20 -- -- Gait/Transferring 10 -- -- Mental Status 0 -- -- Score 60 -- -- OTHER Beyer Fall Risk High -- -- Restraint Interventions Safety Promotion/Fall Prevention -- -- safety round/check completed Positioning Body Position independent;up in chair -- -- Activity Activity Type -- ambulated in sales -- Activity Assistance Provided -- assistance, stand-by -- Assistive Device Utilized -- none -- Goal: Infection Control 12/04/19 0800 Safety Interventions Isolation Precautions standard precautions maintained Infection Prevention environmental surveillance performed;personal protective equipment utilized Coping Strategies Supportive Measures active listening utilized;verbalization of feelings encouraged;self-care encouraged;relaxation techniques promoted Goal: Discharge Needs Assessment 12/04/191646 Discharge Needs Assessment Concerns To Be Addressed adjustment to diagnosis/illness concerns;medication concerns Discharge Disposition still a patient Goal: Interdisciplinary Rounds/Family Conf 12/04/191646 Interdisciplinary Rounds/Family Conf Participants dietitian/nutrition services;family;nursing;patient;pharmacy;physical therapy;physician Problem: Arrhythmia/Dysrhythmia (Symptomatic) (Adult) Goal: Signs and Symptoms of Listed Potential Problems Will be Absent, Minimized or Managed (Arrhythmia/Dysrhythmia) Signs and symptoms of listed potential problems will be absent, minimized or managed by discharge/transition of care (reference Arrhythmia/Dysrhythmia (Symptomatic) (Adult) CPG). Outcome: Ongoing (Interventions Implemented as Appropriate) 12/04/19 1647 Arrhythmia/Dysrhythmia (Symptomatic) Problems Assessed (Arrhythmia/Dysrhythmia) all Problems Present (Arrhythmia/Dysrhythmia) electrophysiological conduction defect Plan of Care - Barbara Baldwin, PT - 12/04/2019 8:50 AM EDT Physical Therapy Note Treatment Number PT: 2 Patient profile: Angel Luis Salinas is a 74 year old M with a PMH of PAD, HLD, Active Tobacco Use & HTNwho was admitted for inferior STEMI [s/p MACARIO to RCA x3, residual LCx disease - non-culprit artery; s/p lytics] with clinical course complicated by RV failure manifesting as cardiogenic shock, for whichionotropic support to be initiated today; additional complications include novel onset, paroxysmal atrial fibrillation [[id number]: 5] & L-sided diplopia with potential hemineglect for which CVA evaluation to be pursued.?? MRI brain showed known hemorrhagic bleed, but also possible small embolic stroke at right occipital lobe. Interval History: - Doing well, walking with PT/Rehab. - Down to 1L NC this AM. - Overnight, has increasing frequency of afib runs. Gave 2g Mag. Soft BP so didn't increase metop. Social History: Home set-up: Lives with his spouse in a 1 level home with 3 LEVY (b/l hand rails). Baseline Mobility: Independent. Drives. 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 Equipment at home: FWW (does not use) Fall history: none ?? Precautions/Special Considerations: Goal HR < 110, fall risk, bleeding precautions, visual deficits (R eye) Activity: per RN ok to ambulate out of room Mobility and Positioning Recommendations: ?? Pt to ambulate 3-4x/day with FWW and SBA. ?? Please encourage up to chair for meal times as able. Subjective: I feel good... they're letting me walk in the room independently Objective: Patient seen for physical therapy and demonstrated the following: Pain: none Vital Signs: At Rest With Activity SpO2 (RA) 94% 92% BP (MAP) HR 78bpm 94bpm Cognition/Vision: WFL Bed Mobility: NA, pt reports no issues with mobilizing OOB Transfers: Sit<>stand: multiple times. mod-independent with FWW in place Gait: Distance: 160 Device used: FWW Level of assist: SBA/mod-indep Gait mechanics: steady. Took 2 brief standing rests d/t fatigue. Paces well. VSS Stairs: 3 steps up/down with 1 rail. SBA. Balance: good with FWW Education: Pt educated to ambulate around loop 3-4x/day with FWW with nsg Pt left in bedside recliner chair all needs in reach, RN updated following visit. Assessment: Angel Luis Salinas was seen today for physical therapy treatment session for continuation of POC. Denied any visual deficits today. Ambulated home distances steadily with a FWW for energy conservation. Pt understands to use a FWW at this time with mobility. Appropriately paces. Cleared stairs. VSS (HR 70s-90s). Appears near his baseline and anticipate no further inpatient PT needs. Will benefit from frequent opportunities to ambulate with nursing. Recommend d/c to home when medically able. Discharge Recommendations: Based on the current findings, Anticipated Discharge Disposition: home with assist, home with home health(home PT) when medically ready for hospital discharge. Consult Recommendations: No other consults recommended at this time. Equipment needs: No equipment necessary (Pt has a FWW at home) Physical Therapy Goals: To be achieved by 12/12/19: ALL MET 12/03 ?? 1. Pt. to demonstrate knowledge of safety limitations and precautions and will appropriately requestassistance for functional activities and to mobilize. 2. Pt. to perform ALL transfers with modified independence using LRAD. 3. Pt. to ambulate 160 feet with modified independence using a LRAD. 4. Pt. to ambulate up/down 3 step/stairs using one rail with supervision. Plan: Therapy Frequency: monitor for therapy interventions as outlined in initial evaluation. Patient agrees with plan as stated. Time IN / OUT: 9638-0796 Total Evaluation Minutes, Physical Therapy: 15(gtx1) Barbara Baldwin, PT Pager: [phone] Physical Therapy Inpatient Rehabilitation Department Plan of Care - Tyron Callejas RN - 12/03/2019 5:45 PM EDT Problem: Patient Care Overview Goal: Plan of Care Review Outcome: Ongoing (Interventions Implemented as Appropriate) 11/30/19203512/03/19 0800 Coping/Psychosocial Plan Of Care Reviewed With -- patient Plan of Care Review Progress no change -- OUTCOME EVALUATION NOTE: OUTCOME SUMMARY: Patient admitted for a stemi has been oxygen depedent, has ambulated the unit 2 times today. Blodd pressure and heart rate under good control PLAN MOVING FORWARD: Cont to monitor, possibly discharge with oxygen tomorrow. INDIVIDUALIZED FALL PREVENTION INTERVENTIONS: Patient-specific fall risk factors per assessment: [current deficits]: decond Assistance [level of assistance required for transfers and ambulation]: Standby with walker Supervision [direct monitoring required during toileting and ADLs]: Call churchill Surveillance [continuous indirect monitoring]: Hourly rounds Patient-specific fall prevention interventions for sensory deficits provided, if applicable: CPG GOAL OUTCOME EVALUATION: Goal: Fall Prevention-Safe Patient Handling Outcome: Ongoing (Interventions Implemented as Appropriate) 12/02/19200312/03/19 0812/03/19 1147 Beyer Fall Risk History of Falling -- 0 -- Secondary Diagnosis -- 15 -- Ambulatory Aids -- 15 -- Intravenous Therapy/Heparin/Saline Lock -- 20 -- Gait/Transferring -- 10 -- Mental Status -- 0 -- Score -- 60 -- OTHER Beyer Fall Risk -- High -- Restraint Interventions Safety Promotion/Fall Prevention -- activity supervised;fall prevention program maintained;nonskid shoes/slippers when out of bed;safety round/check completed -- Positioning Body Position independent -- -- Activity Activity Type -- -- up ad lois Activity Assistance Provided -- -- assistance, stand-by Assistive Device Utilized -- -- front-wheel walker;oxygen Goal: Infection Control Outcome: Ongoing (Interventions Implemented as Appropriate) 12/02/19200312/03/19 0800 Safety Interventions Isolation Precautions standard precautions maintained -- Infection Prevention rest/sleep promoted;environmental surveillance performed -- Coping Strategies Supportive Measures -- active listening utilized Consult Note - Romain Tran RN - 12/03/2019 3:35 PM EDT TOBACCO DEPENDENCE TREATMENT NOTE DATE: 12/03/2019 NAME: Angel Luis Salinas : 1945 Referral received. Chart reviewed. I met with Angel Luis this afternoon to discuss his tobacco use and assess his readiness to quit. He declined tobacco treatment services reporting that he receives all he needs through the [facility]. Consult refused. Romain Tran, MSN, RN-, [facility] Tobacco [employer] Blank[employer] [facility] Pager #[phone] Plan of Care - Romain Oglesby OT - 12/03/2019 1:19 PM EDT Occupational Therapy Evaluation Patient profile: Angel Luis Salinas is a 74 y.o. male admitted on 11/29/2019 who was admitted for inferiorSTEMI [s/p MACARIO to RCA x3, residual LCx disease - non- culprit artery; s/p lytics] with clinical course complicated by RV failure manifesting as cardiogenic shock, for which ionotropic support to be initiated today; additional complications include novel onset, paroxysmal atrial fibrillation [[id number]: 5] & L-sided diplopia with potential hemineglect for which CVA evaluation to be pursued.?? MRIbrain showed known hemorrhagic bleed, but also possible small embolic stroke at right occipital lobe. Past Medical History: Diagnosis Date ??? Acute ST elevation myocardial infarction (STEMI) of inferior wall 11/29/2019 ??? Acute systolic CHF (congestive heart failure), NYHA class 3, MILVIA/AHA stage C 12/03/201911/28 Acute onset secondary to inferior stemi and RV dysfunction. ??? Intracranial hemorrhage 11/30/2019 Focal hemorrhage with small amount of adjacent edema projecting in the region of the left optic tract. - CT report 11/30/19 No past surgical history on file. Social History: Patient lives with his spouse. Home Setup: Patient lives in a one level home with three steps to enter. Patient has a tub shower. DME: FWW Baseline ADL/Mobility: Patient independent and shares driving with his . Patient also shares IADLS with his . Precautions/Special Considerations: HR less than 110, bleeding precautions, DNR, supplemental O2 2 liters Subjective: I am feeling a bit unsteady Objective: Seen today for OT evaluation with PT. Cognitive Status/Behavior: ?? Behavior / Mood: alert and cooperative ?? Alert and oriented to: person, place and time ?? Follows commands: 100% of the time ?? Attention: WFL ?? Safety awareness: WFL Vision & Perception: ?? Patient with some inability to see on his left side. Patient now able to read large print and tell time on clock. Patient able to draw a picture of a clock. Patient able to scan environment and ID objects on all visual cha during mobilization and when scanning for items on a board. Patient tracking left and right. Communication: WFL Range of motion, strength, coordination: B UE Sensation: WFL Activities of Daily Living: Self-feeding: Independent after set-up Dressing: Patient able to dress LB with SBA Bathing: SBA and discussed shower safety Functional Mobility: Sit to stand: SBA Ambulation: SBA with walker Stand to sit: SBA Balance: Sitting balance: Good Standing balance:Good Vitals: 94 At Rest With Activity SpO2 94% 86% Heart Rate 88 102 Blood Pressure 105/61 NT Pain: Patient did not c/o pain Skin: Intact Education: patient have been educated on Role of occupational therapy/rehabilitation, Transfers, Assistive device/technique, Adaptive equipment training, ADL, Safety, Functional Mobility, Activity pacing/Energy conservation and Recommendations and needs reinforcement. understanding. Patient status, treatment, and mobility recommendations discussed with nursing. Assessment: Pt has been seen for occupational therapy evaluation. Angel Luis Salinas presents with the following performance skill deficits and client factors: decreased activity tolerance, decreased sitting/standing balance and compromised mobility status. These performance deficits have led to activity limitations and participation restrictions in the following areas of occupation: dressing, bathing, toileting, transfers/mobility, home management, leisure, driving and community mobility. Patient tolerating mobility for ADLS with some drop in O2 stats and decrease higher level standing balance. Pt would benefit from further inpatient OT interventions to address performance deficits and maximize participation and independence with occupations of daily living. Equipment needs at discharge: use his FWW and shower chair Anticipated Discharge Disposition: home with assist, home with home health Other Recommendations: ?? Utilize upright chair position using bed features or transfer to recliner chair as appropriate with SBA/CTG A with walker, ambulate as tolerated ?? Encourage participation in ADL's by providing set up A on tray table and physical assist only as needed Other Recommendations: No other consults recommended at this time Goals: To be achieved by d/c. Patient will stand at sink level with independently x10 min for ADLs. Patient will dress lower body indep with adaptive equipment prn. Patient will perform simple kitchen mgt with appropriate assistive device as needed and independent. Patient will ambulate to the bathroom with independently, assistive device as needed. Patient will demonstrate energy conservation principals with all ADLs indep. Plan: OT: Therapy Frequency: 1-3 more visits Planned OT interventions: Role of occupational therapy/rehabilitation, Transfers, Assistive device/technique, Adaptive equipment training, ADL, Breathing exercises, Safety, Precautions/Protocol, Functional Mobility, Activity pacing/Energy conservation, Home Management, Balance and Discharge planning. Total Evaluation Minutes, Occupational Therapy: 2016 OT Evaluation Code Rationale: ?? Diagnosis & Pertinent Co-Morbidities affecting Plan of Care: see PMHx ?? Occupational Profile & Client History: Brief Expanded Extensive s ?? Assessment of Occupational Performance: 1-3 performance deficits 3-5 performance deficits s 5 + performance deficits ?? Clinical Decision Making: Low Moderate High s Clinical decision making of low complexity using standardized patient assessment instrument and measurable assessment of functional outcome. Pager: [phone] ROMAIN OGLESBY OT 12/03/2019 Occupational Therapy Rehabilitation Department Consult Note - Norma Gallegos RN - 12/03/2019 11:32 AM EDT Angel Luis Salinas was seen today by Cardiac Rehabilitation for: STEMI, PCI to RCA Activity evaluation - Patient just completed a walk with nursing staff prior to my visit. He has PT/OT consults in place. Educational packet regarding CAD, cardiac risk factors, and managing angina given to the patient. Reviewed managing angina /use of sl nitroglycerin. Mediterranean diet guidelines briefly reviewed. Given parameters for home exercise. Participation in an outpatient cardiac rehabilitation program at [facility] was discussed. Patient agrees to a referral to this program. His has been a cardiac rehab patient at [facility] and he is familiar with the program. The referral will be sent at discharge and the patient should be contacted by the Program within 1- 2 weeks from discharge. Plan of Care - Barbara Baldwin, PT - 12/03/2019 10:35 AM EDT Physical Therapy Evaluation Patient profile: Angel Luis Salinas is a 74 year old M with a PMH of PAD, HLD, Active Tobacco Use & HTNwho was admitted for inferior STEMI [s/p MACARIO to RCA x3, residual LCx disease - non-culprit artery; s/p lytics] with clinical course complicated by RV failure manifesting as cardiogenic shock, for whichionotropic support to be initiated today; additional complications include novel onset, paroxysmal atrial fibrillation [[id number]: 5] & L-sided diplopia with potential hemineglect for which CVA evaluation to be pursued. MRI brain showed known hemorrhagic bleed, but also possible small embolic stroke at right occipital lobe. Patient with the following active problems: Past Medical History: Diagnosis Date ??? Acute ST elevation myocardial infarction (STEMI) of inferior wall 11/29/2019 ??? Acute systolic CHF (congestive heart failure), NYHA class 3, MIVLIA/AHA stage C 12/03/201911/28 Acute onset secondary to inferior stemi and RV dysfunction. ??? Intracranial hemorrhage 11/30/2019 Focal hemorrhage with small amount of adjacent edema projecting in the region of the left optic tract. - CT report 11/30/19 No past surgical history on file. Active Non-Hospital Problems Diagnosis ??? Alcohol abuse ??? Hearing loss of both ears ??? Tinnitus of both ears Social History: Home set-up: Lives with his spouse in a 1 level home with 3 LEVY (b/l hand rails). Baseline Mobility: Independent. Drives. 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 Equipment at home: FWW (does not use) Fall history: none Precautions/Special Considerations: Goal HR < 110, fall risk, bleeding precautions, visual deficits (R eye) Activity: per RN ok to ambulate out of room Mobility and Positioning Recommendations: ?? Pt. to utilize FWW and SBA for ambulation and transfers with nursing. ?? Please encourage up to chair for meal times as able. ?? Pt encouraged to ambulate frequently with staff, getting into the bathroom for toileting and walking out in the sales >/= 3 times daily as able. Subjective: ???It felt good to walk?? Objective: Pt seen for evaluation today. Pain: none Vital Signs: At Rest With Activity SpO2 (2-3L) 94% 2L 86% 2L, increased to 3L sats 93% BP (MAP) 105/61mmHg HR 81bpm 90bpm Mental Status: alert, oriented to person, place, and time Vision: Intermittent difficulty reading or seeing objects with blocked vision on the R half of his Phil. Skin: intact Musculoskeletal: ROM: WFL Strength: WFL Sensation: intact Transfers: Sit to Stand: SBA Stand to Sit: SBA Gait: Distance: 160' Device used: FWW Level of assist: CGA without an AD, SBA with a FWW. Gait mechanics: 2 episodes of unsteadiness without an AD requiring CGA. No visual changes noted. No deviation from straight path or bumping into objects. Educated to use a FWW at this time for safety. Stairs: NA Balance: Sitting Static: good Sitting Dynamic: good Standing Static: good Standing Dynamic / Gait: Good with AD, fair+ without an AD Education: patient has been educated on Transfers, Assistive device/technique, Safety , Gait , Activity pacing/Energy conservation, Role of therapy, Balance and Discharge planning and verbalizes understanding. Patient status, treatment, and mobility recommendations discussed with nursing. Assessment: Angel Luis Salinas was seen today for physical therapy evaluation. Presents with visual deficits, decreased activity tolerance, impaired balance, and impaired mobility. Required 2-3L with activity d/t desats to mid 80s (asymptomatic). Ambulated home distances with improved stability using a FWW. Appears not far from his baseline function. He will highly benefit from frequently opportunities toambulate with nsg. The pt would benefit from skilled therapy services while in the hospital to maximize functional abilities. Discharge Recommendations home with assist, home with home health(home PT) when medically ready for hospital discharge. Consult Recommendations: No other consults recommended at this time. Equipment needs: Anticipate none (has a FWW) Goals: To be achieved by 12/12/19: 1. Pt. to demonstrate knowledge of safety limitations and precautions and will appropriately requestassistance for functional activities and to mobilize. 2. Pt. to perform ALL transfers with modified independence using LRAD. 3. Pt. to ambulate 160 feet with modified independence using a LRAD. 4. Pt. to ambulate up/down 3 step/stairs using one rail with supervision. Plan: Therapy Frequency: 1-3 more visits for therapy including balance training, bed mobility training, gait training, home exercise program, patient/family education, stair training, strengthening andtransfer training. Patient/family understand and agree with plan as stated above. 2017 PT Evaluation Code Rationale: ?? Diagnosis & Pertinent Co-Morbidities, personal factors, and present illness affecting Plan ofCare: (see above); Additional personal factors or co- morbidities that impact plan: ?? Total # of Factors: 0 1-2 3+ X ?? Examination of body system impairments, functional limitations and behaviors, and/or participation restrictions. Addressing 1-2 elements Addressing 3 + elements X Addressing 4 + elements ?? Clinical presentation: See assessment above. Stable/Uncomplicated Evolving/Fluctuating Symptoms Unstable/Unpredictable X ?? Clinical decision making of moderate complexity based on pt's functional performance as outlined in this evaluation. Time IN / OUT: 8630-1723 Total Evaluation Minutes, Physical Therapy: 25(eval, gtx1) Barbara Baldwin, PT Pager: [phone] Physical Therapy Inpatient Rehabilitation Department Consult Note - Johanna Nobles RN - 12/02/2019 12:49 PM EDT Images from the original note were not included. Certified Wound Care Nurse Note Situation: Asked to see Angel Luis Salinas by Estefani Baeza RN for New .5cm x .5cm open area R buttock with layer of skin missing. ??Pt was unable to turn lie flat due to resp status. ??Resp status now improved turning side to side. Background: eD-H notes reviewed for history, admitting diagnosis and active problem list. Wound Assessment and Care Provided: Patient was seen today in the [facility] sitting up in bed, oxygen on via nasal cannula. Reason for visit explained to patient. He was able to turn to the left side, Mepilex Border Sacrum was peeled back, there is a red area 1 cm x 1 cm on the right buttock that is slow to stephenie, patient denies pain at the area. Mepilex Border placed back down and the following picture was taken: Ramesh Score: 16 Last Pressure Ulcer Prevention assessment: Shift Pressure Injury Prevention Occiput: No Injury Thoracic Spine: No Injury Sacral: New Injury Ischial - left: No Injury Ischial - right: No Injury Heel - left: No Injury Heel - right: No Injury Elbow - left: No Injury Elbow - right: No Injury Device Sites: O2 sat monitor, oxygen tubing, BP Cuff, ECG Leads, gutierres, IV sites, SCD's/venodynes, Raven sites - tubing, A line Board Nutritional Status Wt Readings from Last 1 Encounters: 12/02/19 68.1 kg (150 lb 2.1 oz) Body mass index is 21.54 kg/m??. Labs Lab Results Component Value Date ALBUMIN 3.6 11/29/2019 HA1C 6.3 (H) 11/30/2019 WBC 9.3 12/02/2019 WBC 8.4 12/01/2019 WBC 11.0 (H) 12/01/2019 HGB 10.8 (L) 12/02/2019 HGB 10.8 (L) 12/01/2019 HGB 10.2 (L) 12/01/2019 HCT 33.1 (L) 12/02/2019 HCT 32.4 (L) 12/01/2019 HCT 31.2 (L) 12/01/2019 Nutritional Intake Current bed: [facility] Assessment: Patient is with an area on the right buttock that is slow to stephenie and therefore concerning for thestart of a pressure injury. Offloading the area will be helpful and closely monitor. Wound Care Recommendations: Dressing Changes/Skin Care: Mepilex Border Sacrum dressing-Assess beneath the dressing daily and reapply, sealing edges with skin prep. Change every 3 days and PRN: 1. Cleanse skin with dermal wound cleanser. 2. Apply Mepilex Border Sacrum dressing. 3. Seal edges with skin prep. Refer to adult/pediatric pressure ulcer prevention job aid in the clinical policy library highlighting the following points: Mobility: Turn and reposition every 2 hours and document in ED-H, side to side. Place a pillow above and below sacral area to off load pressure to the sacrum Offload pressure from heels by placing pillows lengthwise beneath legs while in bed. Offload pressure from heels by adjusting length of foot of bed. Wound Care Team will plan to follow: weekly. Discussed plan with: RN: Vania Please contact JOHANNA NOBLES RN on pager [phone] or the wound care team at [phone] or pager [phone] skin and wound care concerns or questions. Initial Assessments - Derian Pascual RN - 12/01/2019 4:30 PM EDT Office of Care Management Initial Assessment Derian Pascual RN reviewed record and discussed patient with Care Team. Source of Information: Spoke w/ patient Introduced self/reviewed role; services accepted. Reason for Hospitalization: NSTEMI s/p CABG Past Medical History: Diagnosis Date ??? Acute ST elevation myocardial infarction (STEMI) of inferior wall 11/29/2019 ??? Intracranial hemorrhage 11/30/2019 Focal hemorrhage with small amount of adjacent edema projecting in the region of the left optic tract. - CT report 11/30/19 Hospitalizations Within the Past 30 Days: None Anticipated Length Of Stay (If known): 4-5 days Current Decision-Making Capacity: Alert and oriented, able to make own decisions Advance Care Planning: No AD on file. If AD's have not been completed Shadia Salinas would be surrogate decision maker per [place] surrogate decision making law. Any patient receiving carspousee at [facility] must abide by [place] law. The hierarchy for surrogate decisionmaking is: (a) Patient???s spouse, or civil union partner or common law spouse unless there is a divorce proceeding, separation agreement, or restraining order limiting that person???s relationship with the patient. (b) Any adult son or daughter of the patient. (c) Either parent of the patient. (d) Any adult brother or sister of the patient. (e) Any adult grandchild of the patient. (f) Any grandparent of the patient. (g) Any adult aunt, uncle, niece, or nephew of the patient. (h) A close friend of the patient. (i) The agent with financial power of bull wheel worker or a conservator appointed in accordance with [place] 464-A. (j) The guardian of the patient???s estate. Current Coping/Education/Information Needs: States coping well w/ hospitalization Current Functional Ability: TBD, not OOB yet Functional Status Prior to Admission: Independent Home Environment: Lives w/ spouse in mobile home; 3 LEVY Social & Family Supports/Community Resources: Family Behavioral Health History: Denies anxiety or depression Substance Use/Abuse: Current smoker (1ppd). Denies alcohol or non-prescribed substances Other Pertinent/Service Specific Information: No Health/Prescription Coverage: Primary Insurance: MEDICARE Secondary Insurance: N/A Prescription Coverage: Yes Preferred Pharmacy: [place], [place] Other: No Primary Care Provider: France Lam MD [phone] Patient/Caregiver Goals of Treatment: Return home Potential Needs for Transition of Care: Rehab/SNF: Based on discussions with the multi-disciplinary healthcare team, the patient would benefit from SNF level of care at discharge. ?? I have met with the patient to discuss discharge planning needs. I have provided the [facility], Officeof Care Management letter from the Master Technician pertaining to rehab referrals. I have also provided a letter describing our affiliations within the [facility] and educated them about their right to choose where referrals are placed. ?? I reviewed the different levels of rehab including SNF, swing, acute and LTAC with the patient. ?? The patient has been provided a list of facilities within their preferred geographic area. ?? I have requested that the patient provide at least three choices for referral. ?? The patient have requested referrals to: ?? 1. [facility] [address] [place] [id number] ?? [address] [place] [address] Note routed to Patient Office Rep who will communicate referrals to facilities and provide any required information. Home Health: If therapies recommend home w/ VNA, the patient has been provided a list of Home Health Agencies/DME vendors which serve their preferred geographic area. A letter describing our affiliations was reviewed with them and they were educated about their right to choose where referrals are placed. Patient requests referral to [facility] [email or web address]. PHONE: [phone] FAX: [phone] Referral routed to the Patient Office Rep for matching with agency/vendor and to provide any required information. DME: Has FWW. Currently on 4L O2, may need O2 at d/c if going home and unable to wean Dialysis: No Community Resources: No Transportation: Son vs BLS ambulance Other: No Anticipated Barriers to Discharge/Special Considerations: No Assessment: Angel Luis Salinas is a 74yo male her for NSTEMI w/ CABG. Lives at home w/ spouse. Insured w/ Medicare. Gets medications filled at [facility] in [place], [place]. Son to transport at discharge Plan: Discharge dispo depending on patient's physical recovery; SNF vs home w/ VNA. A member of the Care Management team will continue to monitor progress, follow for continuity of care and assist with transition of care planning. Derian Pascual, NIURKA Pager: [phone] Plan of Care - Estefani Baeza RN - 11/30/2019 8:39 PM EDT Problem: Patient Care Overview Goal: Plan of Care Review 11/30/192035 Coping/Psychosocial Plan Of Care Reviewed With patient Plan of Care Review Progress no change OUTCOME EVALUATION NOTE: OUTCOME SUMMARY: Pt acutely tachypnic with labored respirations, pulse ox 85. Cardiac resident, Dr. Bonner to floor, ABG obtained, validates saturation, Chest xray obtained, High flow nasal canula initiated. More comfortable with high flow. Discussed mixed venous and bessie with TD with Dr. Winn, not desired at this time. PLAN MOVING FORWARD: Monitor, assessments, intervene prn. 2124: C/o chest pain, substernal pressure 03/11 Ekg obtained, Dr. Winn to floor. CXR obtained 2132: Pt discussed with Cardiac Fellow Dr. Downs by Dr. Winn sl nitroglycerin tablet now. 2137: Pain now 10 nitro gtt initiated. Goal as discussed with Dr. Winn is MAP >60, SBP <160, pain free. 5: Pain continues to move between 5-01/08. Dr. Winn here, contacting Dr. Downs. Now on 100% on high flow 745/23/76/15 discussed Bicarb, morphine as possiable treatment options. 0500: Appeared more comfortable after morphine dose earlier, appeared to be sleeping in naps. Attempt to titrate nitro gtt unsuccessful. Pt with recurrent chest pain. Pt with difficulty rating pain on 0-10 scale. Pain does have a component of increasing with deep breath but also is constant. Elevated PBNP, breath sounds diminished, PA wedge 14 PAD 13, CVP 8. I and O's 800 positive/ 24 hours. Breath sounds diminished. Productive cough, ABX have been initiated. High flow currently at 80% with an O2 sat of 93. Morphine dose again with pt apparent relaxation, Appears to be dosing off. Ct scan deferred after conversation with Dr. Winn due to pt's inability to lye flat. 0625: Titrating nitroglycerin down with no increase in chest discomfort. Chest discomfort increases with cough. 0645: Nitro off. CI 2.6, Dr Mireles in, updated. Consult Note - Angel Luis Jimenez MD - 11/30/2019 2:41 PM EDT Neurosurgery H&P / Consultation CC/Mechanism of Injury: Visual disturbance s/p STEMI with PCI Neurosurgery Attending: Calixto YU: Asked by Gretchen Yoon MD to see Angel Luis Salinas, a 74 y.o. right-handed male with PMH significant for peripheral artery disease, hyperlipidemia, hypertension, tobacco use. Patient was seen and evaluated in the [facility]. He was recently admitted to the cardiology service for STEMI for which he underwent lytic therapy and percutaneous intervention with RCA stenting x3 on 11/29/2019. He is developed new onset atrial fibrillation with cardiogenic shock requiring pressor support.It was noted on 11/30/2019 that he developed left-sided diplopia and blurry vision prompting consultation with neurosurgery and neurology. On evaluation the patient complains of blurriness and difficulty seeing objects to the right. He also endorses active chest pain which was related to the cardiac nurse and was being addressed. Currently on aspirin 81 mg and Plavix 75 mg daily Current smoker Medical History: Past Medical History: Diagnosis Date ??? Acute ST elevation myocardial infarction (STEMI) of inferior wall 11/29/2019 ??? Intracranial hemorrhage 11/30/2019 Focal hemorrhage with small amount of adjacent edema projecting in the region of the left optic tract. - CT report 11/30/19 Surgical History: No past surgical history on file. Medications: Medications Prior to Admission Medication Sig Dispense Refill Last Dose ??? cholecalciferol, Vitamin D3, 400 unit tablet Take 1,000 Units by mouth daily. Taking at Unknown ??? aspirin 81 mg EC tablet Take 81 mg by mouth daily. Pt takes every other day Taking at Unknown ??? Red Yeast Rice Extract 600 mg Cap Take by mouth daily. ??? niacin (NIASPAN ER) 500 mg ER tablet Take 500 mg by mouth 2 times daily (with meals). Allergies: Allergies Allergen Reactions ??? Penicillins Pt doesn't remember reaction ??? Dvubeat-Zwq-Chl Reductase Inhibitors Stiff neck, upset stomach, back pain Family History: No family history on file. Social History: Social History Tobacco Use ??? Smoking status: Current Every Day Smoker Packs/day: 0.50 Types: Cigars Substance Use Topics ??? Alcohol use: Not on file ??? Drug use: Not on file Review of Systems: Review of Systems Eyes: Positive for blurred vision and double vision. Respiratory: Positive for shortness of breath. Cardiovascular: Positive for chest pain. All 12 systems otherwise negative. Physical Exam: Vital Signs: Temp: [37.2 ??C (99 ??F)-37.8 ??C (100 ??F)] Heart Rate: [58-82] Resp: [15-32] BP: -- SpO2: [92 %-100 %] Heart Rate from SpO2: [53 bpm-84 bpm] BMI: Weight: 64.1 kg (141 lb 5 oz) BMI (Calculated): 20.27 BMI Classification: Normal Weight -Gen: NAD. -HEENT: ATNC. -Neuro: Mental Status/Cognitive: Awake, alert, oriented x 3. GCS 15 (Motor 6 - Follows commands; Verbal 5 - Fluent; Eyes 4 - Eyes open spontaneously) Speech: Fluent, appropriate. Naming and repetition intact. Cranial Nerves: PERRL CN II: Visual acuity and cha grossly intact CN III, IV, : EOMI CN V: Sensation intact in V1, 2 and 3 distributions CN VII: No facial asymmetry/droop CN VIII: Intact hearing bilaterally to voice CN IX, X: Palate and uvula midline CN XI: Trapezius strength 5/5 bilaterally CN XII: Tongue midline Tone: Normal Motor: No pronator drift *Pain limited on exam Segment Muscle Action Right Left C5 Deltoid Shoulder Abduction 5 5 C6 Biceps Elbow flexion 5 5 C6 Extensor carpi radialis Wrist extension 5 5 C7 Triceps Elbow extension 5 5 C8 Finger flexors Grasp 5 5 T1 Interossei Finger abduction 5 5 L2 Iliopsoas Hip flexion 5 5 L3 Quadriceps Knee extension 5 5 L4 Tibialis anterior Dorsiflexion 5 5 L5 Extensor hallucis Great toe extension 5 5 S1 Gastrocnemius Plantar flexion 5 5 Gait: Not assessed Sensation: Light touch: Intact x 4 Labs: Recent Labs 11/30/19 0215 11/29/19 1432 NA 135 135 K 3.9 4.5 CL 108* 105 CO2 16* 15* BUN 13 16 CREATININE 0.90 0.94 GLUCOSE -- 149 Recent Labs 11/30/19 0215 11/29/19 1432 WBC 11.2* 14.5* HGB 11.4* 13.1* PLATELET 122* 184 Recent Labs 11/29/19 1432 PT 13.5* INR 1.2 Recent Labs 11/29/19 1432 AST 257* ALT 50 BILITOT 0.3 ALKPHOS 84 PROT 6.3 Radiology: Head CT 11/30/2019: Focal hyperdensity with adjacent edema in the region of the left optic tract concerning for hemorrhage. Films personally reviewed / reviewed with radiologist Impression: Angel Luis Salinas is a 74 y.o. male with hemorrhage in the region of the left optic tract s/p STEMI with PCI and stenting on 11/29/2019. He has a non- focal neurological exam except for subjective visual changes. There are no indications for urgent or emergent neurosurgical intervention. Because of his intracranial hemorrhage she is at high risk for neurologic damage. Anticoagulation iscontraindicated. Antiplatelet therapy will be prescribed with great caution. I discussed the risks and benefits of antiplatelet therapy and the risk of worsening hemorrhage and neurological deficit. The patient expressed understanding. At this time we will proceed with prescribing Plavix. We will hold aspirin, and reevaluate with a noncontrast head CT and CT of the [place] at 1600 hrs. We will get a follow-up noncontrast head CT at 0400 hrs. on 12/01/2019. Problem List: Intracranial hemorrhage STEMI PCI with stenting Cardiogenic shock Brain compression Cerebral edema Hypertension Plan: - Neuro checks: q2h - Imaging: CT head wo and CoW at 1600 hrs. and 0400 hrs. on 12/01/2019 - Agree with MRI brain - goal SBP < 160 - Hold therapeutic anticoagulation - Continue with Plavix - Hold aspirin Discussed with Dr. De Luna. Active Hospital Problems Diagnosis ??? Acute ST elevation myocardial infarction (STEMI) of inferior wall ??? Intracranial hemorrhage ??? Hyperlipidemia ??? Tobacco abuse ??? Claudication from peripheral vascular disease, left Resolved Hospital Problems No resolved problems to display. Angel Luis Jimenez MD 11/30/2019 Associated attestation - Cathy De Luna MD - 12/01/2019 2:38 PM EDT I have seen and examined the patient, providing doss components as outlined below. I have reviewed the resident???s note; my evaluation of the patient is below: 74 y.o. gentleman s/p STEMI treated with emergent cath, 3 stents in the RCA on 11/29/2019 (yesterday). After admission to the [facility] he complained of difficulty seeing the number on the right side of his clock. A head CT demonstrated acute hemorrhage in the region of the left optic tract. His neurologic exam is currently normal and he reports that his vision has improved. We would recommend holding ASA/plavix but given the acuity of his STEMI, this would jeopardize his cardiac perfusion. He should under surveillance head imaging to establish stability of his hemorrhage and anticoagulation can be cautiously restarted with close neurologic monitoring. Agree with MRI to evaluate for stroke per neurology recommendations. Consult Note - Barbara Nelson I - 11/30/2019 11:18 AM EDT Neurology Vascular Consult Note Patient name: Angel Luis Salinas Date of : 1945 PCP: France Lam MD Onset of symptoms (if witnessed): 11/28 PM Last known well: 11/28 around 5 PM Stroke Alert Activated: NA Neurology at Bedside: NA Was IV tPA given greater than 60 minutes after time of hospital arrival: No CC: Left Sided Vision Problems HPI: Angel Luis Salinas is a 74 y.o. right handed man with a PMH of PAD, HLD, active tobacco use, and HTN who was admitted to cardiology for STEMI (underwent lytics on 11/28 and s/p MACARIO to RCA x 3) which has beencomplicated by new afib and cardiogenic shock. Neurology has been consulted for new onset left sideddiplopia and blurry vision concerning for stroke. Patient presented to [facility] [place] transfer for a STEMI after presenting at OSH with chest pain. He was given tenectaplase as lytic therapy, was briefly on a heparin gtt with intra-cath heparin administered,and underwent cath with 3 stents placed. He further received dual antiplatelet therapy. Last night, while watching TV around 5 PM, he noticed that he couldn't see well out of the right field of his vision. Everything seemed blurry and like a colorful kaliedoscope. All the colors seemed to bleed into each other. This was present in both eyes. He at first thought they were floaters in his vision and did not mention it to staff. This morning, the problem was persistent and he was still having difficulties in his right field of vision. He can identify no other neuro deficits and denies any diplopia beyond the blurry vision. Current Medications: Scheduled Meds: ??? pantoprazole EC 40 mg Oral BID ??? clopidogreL 75 mg Oral Daily ??? aspirin EC 81 mg Oral Daily ??? cholecalciferol (Vitamin D3) 1,000 Units Oral Daily ??? sodium chloride 0.9 % (flush) 5 mL Intravenous BID Continuous Infusions: ??? DOBUTamine 4.992 mcg/kg/min (11/30/19 1000) ??? NORepinephrine 4 mcg/min (11/30/19 1000) PRN Meds:.acetaminophen, nitroGLYcerin, sodium chloride 0.9 % (flush), lidocaine, fentaNYL (PF) OR fentaNYL (PF) Past Medical & Surgical History: Past Medical History: Diagnosis Date ??? Acute ST elevation myocardial infarction (STEMI) of inferior wall 11/29/2019 No past surgical history on file. Home Medications: No current facility-administered medications on file prior to encounter. Current Outpatient Medications on File Prior to Encounter Medication Sig Dispense Refill ??? cholecalciferol, Vitamin D3, 400 unit tablet Take 1,000 Units by mouth daily. ??? aspirin 81 mg EC tablet Take 81 mg by mouth daily. Pt takes every other day ??? Red Yeast Rice Extract 600 mg Cap Take by mouth daily. ??? niacin (NIASPAN ER) 500 mg ER tablet Take 500 mg by mouth 2 times daily (with meals). Allergy: Allergies Allergen Reactions ??? Penicillins Pt doesn't remember reaction ??? Sshcrbb-Rut-Ygo Reductase Inhibitors Stiff neck, upset stomach, back pain Family History: No family history on file. Social History: Social History Socioeconomic History ??? Marital status: Spouse name: Not on file ??? Number of children: Not on file ??? Years of education: Not on file ??? Highest education level: Not on file Occupational History ??? Not on file Social Needs ??? Financial resource strain: Not on file ??? Food insecurity Worry: Not on file Inability: Not on file ??? Transportation needs Medical: Not on file Non-medical: Not on file Tobacco Use ??? Smoking status: Current Every Day Smoker Packs/day: 0.50 Types: Cigars Substance and Sexual Activity ??? Alcohol use: Not on file ??? Drug use: Not on file ??? Sexual activity: Not on file Lifestyle ??? Physical activity Days per week: Not on file Minutes per session: Not on file ??? Stress: Not on file Relationships ??? Social connections Talks on phone: Not on file Gets together: Not on file Attends mu-ism service: Not on file Active member of club or organization: Not on file Attends meetings of clubs or organizations: Not on file Relationship status: Not on file ??? Intimate partner violence Fear of current or ex partner: Not on file Emotionally abused: Not on file Physically abused: Not on file Forced sexual activity: Not on file Other Topics Concern ??? Not on file Social History Narrative ??? Not on file Review of systems: Constitutional: No fevers or chills Eyes: No vision changes, no diplopia, no blurry vision ENT: No rhinorrhea or pharyngitis, no meningismus CV: No chest pain or palpitations Resp: No cough, no shortness of breath GI: No nausea, vomiting, diarrhea or constipation : No dysuria, no incontinence Heme: No bleeding or bruising Endo: No polyuria or cold intolerance Neuro: See HPI Psych: No depression, normal sleep [x] Review of systems otherwise negative Physical Exam: Vitals: Temp: [37.2 ??C (99 ??F)-37.5 ??C (99.5 ??F)] Heart Rate: [55-81] Resp: [15-32] BP: (70-164)/(39-109) SpO2: [89 %-100 %] Heart Rate from SpO2: [52 bpm-84 bpm] Gen: Patient of apparent stated age, well nourished, well developed, awake, alert, NAD Neck: Supple, no meningismus Ext: No edema. No bony deformity, missing first phalanx of right index finger Neuro Exam: MS: AAOx4, clear language, no dysarthria, follows commands CN: PERRL, EOMI Right homonymous visual field change Facial sensation intact, no facial asymmetry Hearing intact to finger rub Palate elevates symmetrically, tongue protrudes midline SCM and trap strength intact Motor: Normal bulk and tone. No pronator drift UE: 5/5 R, 5/5 L Arm abduction at shoulder 5/5 R, 5/5 L Elbow extension 5/5 R, 5/5 L Elbow flexion 5/5 R, 5/5 L Train Crew Member LE: 5/5 R, 5/5 L Hip flexion 5/5 R, 5/5 L Knee extension 5/5 R, 5/5 L Knee flexion 5/5 R, 5/5 L Foot dorsiflexion 5/5 R, 5/5 L Foot plantar flexion Sensation: Intact to light touch throughout Reflexes: DTRs 2+ R, 2+ L Biceps 2+ R, 2+ L Brachioradialis 2+ R, 2+ L Triceps 2+ R, 2+ L Patellar 2+ R, 2+ L Achilles tendon Toes - R down, L down Coordination: Finger to nose intact, no dysmetria Heel-kendrick intact No tremor Gait: Unable to assess NIH Stroke Scale: (bold applicable choices) NIH Stroke Scale at Initial Evaluation: 1.a. Level of consciousness: 0-Alert 1-Not alert, but arousable with minimal stimulation 2-Not alert, requires repeat stimulation to attend 3-Coma 1.b. Ask patient the month and their age: 0-Answers both correctly 1-Answers one correctly 2-Both incorrect 1.c. Ask patient to open and close eyes: 0-Obeys both correctly 1-Obeys one correctly 2-Both incorrect 2. Best gaze (horizontal eye movement): 0-Normal 1-Partial gaze palsy 2-Forced deviation 3. Visual field testin-No visual field loss 1-Partial hemianopia 2-Complete hemianopia 3-Bilateral hemianopia (blind including cortical blindness) 4. Facial paresis (Ask patient to show teeth or raise eyebrows and close eyes tightly): 0-Normal symmetrical movement 1-Minor paralysis (flattened nasolabial fold, asymmetry on smiling) 2-Partial paralysis (total or near paralysis of lower face) 3-Complete paralysis of one or both sides (absence of facial movement in the upper and lower face) 5. Motor function right arm: 0-Normal (extends arm 90 degrees for 10 seconds without drift) 1-Drift 2-Some effort against gravity 3-No effort against gravity 4-No movement UT-Untestable (Joint fused or limb amputated) 5. Motor function- left arm: 0-Normal (extends arm 90 degrees for 10 seconds without drift) 1-Drift 2-Some effort against gravity 3-No effort against gravity (but baseline) 4-No movement UT-Untestable (Joint fused or limb amputated) 6. Motor function right le-Normal (extends leg 30 degrees for 5 seconds without drift) 1-Drift 2-Some effort against gravity 3-No effort against gravity 4-No movement UT-Untestable (Joint fused or limb amputated) 6. Motor function-left le-Normal (extends leg 30 degrees for 5 seconds without drift) 1-Drift 2-Some effort against gravity 3-No effort against gravity 4-No movement UT-Untestable (Joint fused or limb amputated) 7. Limb ataxia: 0-No ataxia 1-Present in one limb 2-Present in two limbs 8. Sensory (Use pinprick to test arms, legs, trunk and face compare side to side): 0-Normal 1-Mild to moderate decrease in sensation 2-Severe to total sensory loss 9. Best language (describe picture, name items, read sentences): 0-No aphasia 1-Mild to moderate aphasia 2-Severe aphasia 3-Mute 10. Dysarthria (read several words): 0-Normal articulation 1-Mild to moderate slurring of words 2-Near unintelligible or unable to speak UT-Intubated or other physical barrier 11. Extinction and inattention: 0-Normal 1-Inattention or extinction to bilateral simultaneous in one of the sensory modalities 2-Severe jonh-inattention or jonh-inattention to more than one modality TOTAL SCORE: 0 ICH Score: GCS 2: 3-4 1: 5-12 0: 13-15 ICH volume 1: > 30 cm3 0: < 30 cm3 Interventricular hemorrhage 1: yes 0: no Infratentorial origin of ICH 1: yes 0: no Age 1: > 80 years 0: < 80 years TOTAL 0 Interpretation: ICH score 0 1 2 3 4 5 6 30 day mortality No mortality 13% 26% 72% 97% 100% Estimated 100% Labs: Recent Results (from the past 24 hour(s)) Basic Metabolic Panel (non-fasting) Result Value Ref Range Glucose Lvl 149 65 - 199 mg/dL BUN 16 10 - 20 mg/dL Creatinine 0.94 0.80 - 1.50 mg/dL Sodium 135 135 - 145 mmol/L Potassium 4.5 3.5 - 5.0 mmol/L Chloride 105 98 - 107 mmol/L CO2 15 (L) 22 - 31 mmol/L Anion Gap 15 5 - 15 mmol/L Calcium 8.0 (L) 8.5 - 10.5 mg/dL eGFR 80 >=60 mL/min/1.73 m?? eGFR 93 >=60 mL/min/1.73 m?? Magnesium Result Value Ref Range Magnesium 0.76 0.69 - 1.07 mmol/L pro-Brain Natriuretic Peptide Result Value Ref Range ProBNP 272 (H) <=125 pg/mL Hepatic Function Panel Result Value Ref Range Total Protein 6.3 6.1 - 8.0 gm/dL Albumin 3.6 3.2 - 5.2 gm/dL AST 257 (H) 0 - 39 unit/L ALT 50 0 - 55 unit/L Alk Phos 84 40 - 130 unit/L Total Bilirubin 0.3 0.2 - 1.3 mg/dL Bili, Direct 0.1 0.0 - 0.3 mg/dL Prothrombin Time Result Value Ref Range PT 13.5 (H) 9.4 - 12.5 sec INR 1.2 APTT Result Value Ref Range PTT 114 (CRIT) 25 - 37 sec Troponin Result Value Ref Range Troponin-T 20.33 (H) 0.00 - 0.00 ng/mL CK Result Value Ref Range CK, Total 3,282 (H) 0 - 200 unit/L Hemogram Result Value Ref Range WBC 14.5 (H) 4.0 - 9.5 x10(3)/mcL RBC 4.53 (L) 4.58 - 5.54 x10(6)/mcL Hemoglobin 13.1 (L) 13.7 - 16.5 gm/dL Hematocrit 40.8 40.5 - 48.5 % MCV 90.1 82.9 - 93.1 fL MCH 28.9 27.5 - 32.1 pg MCHC 32.1 32.0 - 35.7 gm/dL Platelets 184 145 - 357 x10(3)/mcL RDWSD 47.8 (H) 36.0 - 45.0 fL RDWCV 14.5 (H) 11.4 - 13.8 % MPV 11.9 7.6 - 12.9 fL nRBC % Auto 0.0 % nRBC Abs Auto 0.000 0.000 - 0.000 x10(3)/mcL Differential, Automated Result Value Ref Range Neutrophils % 83.8 % Neutr Abs (ANC) 12.12 (H) 1.70 - 6.10 x10(3)/mcL Lymphocytes % 9.1 % Lymphocytes Abs 1.3 0.9 - 3.2 x10(3)/mcL Monocytes % 6.2 % Monocyte Abs 0.9 0.3 - 0.9 x10(3)/mcL Eosinophils % 0.0 % Eosinophils Abs 0.0 0.0 - 0.4 x10(3)/mcL Basophils % 0.3 % Basophils Abs 0.0 0.0 - 0.1 x10(3)/mcL Immature Gran % 0.60 % Pita Gran Abs 0.08 (H) 0.00 - 0.04 x10(3)/mcL Troponin Result Value Ref Range Troponin-T 17.60 (H) 0.00 - 0.00 ng/mL CK Result Value Ref Range CK, Total 2,780 (H) 0 - 200 unit/L Troponin Result Value Ref Range Troponin-T 11.73 (H) 0.00 - 0.00 ng/mL CK Result Value Ref Range CK, Total 1,969 (H) 0 - 200 unit/L Lipid Panel (Reflex Direct LDL) Result Value Ref Range Chol, Total 195 mg/dL Triglycerides 93 mg/dL HDL 32 mg/dL LDL Cholesterol 144 mg/dL Chol/HDL Ratio 6.1 ratio Lipid Interpretation See Note Hemoglobin A1c Result Value Ref Range Hemoglobin A1C 6.3 (H) 4.3 - 5.6 % Est Avg Gluc See note mg/dL LDL Cholesterol, Direct Result Value Ref Range LDL Chol Direct 156 mg/dL Hemogram Result Value Ref Range WBC 11.2 (H) 4.0 - 9.5 x10(3)/mcL RBC 3.83 (L) 4.58 - 5.54 x10(6)/mcL Hemoglobin 11.4 (L) 13.7 - 16.5 gm/dL Hematocrit 35.2 (L) 40.5 - 48.5 % MCV 91.9 82.9 - 93.1 fL MCH 29.8 27.5 - 32.1 pg MCHC 32.4 32.0 - 35.7 gm/dL Platelets 122 (L) 145 - 357 x10(3)/mcL RDWSD 49.8 (H) 36.0 - 45.0 fL RDWCV 14.8 (H) 11.4 - 13.8 % MPV 12.1 7.6 - 12.9 fL nRBC % Auto 0.0 % nRBC Abs Auto 0.000 0.000 - 0.000 x10(3)/mcL BMP w/fasting Glucose Result Value Ref Range Glucose Fasting 147 (H) 65 - 99 mg/dL BUN 13 10 - 20 mg/dL Creatinine 0.90 0.80 - 1.50 mg/dL Sodium 135 135 - 145 mmol/L Potassium 3.9 3.5 - 5.0 mmol/L Chloride 108 (H) 98 - 107 mmol/L CO2 16 (L) 22 - 31 mmol/L Anion Gap 11 5 - 15 mmol/L Calcium 7.5 (L) 8.5 - 10.5 mg/dL eGFR 84 >=60 mL/min/1.73 m?? eGFR 98 >=60 mL/min/1.73 m?? Troponin Result Value Ref Range Troponin-T 8.04 (H) 0.00 - 0.00 ng/mL CK Result Value Ref Range CK, Total 1,645 (H) 0 - 200 unit/L Diagnostic Tests and Imaging: Head CT w/out: (11/30/2019): IMPRESSION Focal hemorrhage with small amount of adjacent edema projecting in the region of the left optic tract. Swallow Screen Results: PASSED (All YES responses) Time 1330 Assessment and Plan: Angel Luis Salinas is a 74 y.o. with a PMH of PAD, HLD, active tobacco use, and HTN who was admitted to cardiology for STEMI (underwent lytics on 11/28 and s/p MACARIO to RCA x 3) which has been complicated by new afib and cardiogenic shock. Neurology has been consulted for new onset left sided diplopia and blurry vision concerning for stroke. The symptoms localize to left midbrain, likely with involvement of the optic tracts. The likely etiology of this stroke is unclear. He should undergo MRI with SWI sequencing for further evaluation of prior hemorrhage / microhemorrhage suggestive of CAA. Thrombolytics were considered and not given secondary to Specify reason: hemorrhage present. We recognize that he recently had cardiac stenting and requires antiplatelet treatment in support ofthat. We would recommend minimizing antiplatelet and anticoagulation as much as possible, if possible continuing only on a single antiplatelet agent until his MRI. He should have a repeat CT head this afternoon to assess for evolution / progression of the hemorrhage. He should remain on BP control with goal systolic < 160. Recommendations: - MRI with SWI sequence - Agree with repeat CTH this afternoon to assess evolution - SBP < 160 - If possible, hold aspirin until MRI - HOLD anticoagulation Seen with Dr. Jackie Hernandez?? Consult service will continue to follow patient. Recommendations are above, please page if further consultation required. Barbara Nelson MD PGY3 Neurology Resident 11/30/2019 Vascular Neurology Pager [phone] Standard [facility] [place] Screen: This screen is to be used to document a Swallow Screen prior to ingestion of water and /or oral medications for patients with possible stroke (Ischemic or Hemorrhagic). Exclusion Criteria: A swallow screen is not to be performed on patients who: ?? have a decreased level of consciousness. ?? are not able to follow simple commands. ?? are hypoxic, or have increasing O2 needs or may need to be intubated. ?? have a G/J tube for nutrition. ?? have a recent history of a swallowing disorder *These patients should remain NPO (HOLD MEDS) and the physician notified for further orders. Swallow Screen Using Water: None of the Exclusion Criteria as mentioned above is present? Patient is alert and sitting upright? Able to close lips and tongue is midline? Able to cough, manage oral secretions with dry voice? ONLY IF ABOVE ALL YES, Able to swallow 30 ml of water without coughing, displaying a wet voice or choking? Repeat Twice. ??? If YES to all responses, proceed with water and oral medications as well as diet as medical provider deems appropriate. Consider SAFETY EQUIPMENT TESTING SPECIALIST consult for full evaluation and diet recommendations. ??? If NO to any of the responses, stop immediately, keep patient NPO and notify physician. Associated attestation - Evan Mejia MD - 11/30/2019 3:03 PM EDT Images from the original note were not included. I have seen and examined Angel Luis Salinas with the neurology team on 11/30/2019 and agree with the assessment and plan as below. Left thalamic hyperdensity with R visual field deficits. STEMI s/p MACARIO 74 Y M with history of PAD, HTN, HL smoking Afib admitted s/p thrombolysis and Cath-Stent to [facility] who developed R sided visual symptoms. CT head shows a linear hyperdensity left thalamus-basilio junction close to optic tract Has R sided visual deficit. No weakness. May be secondary to hemorrhagic conversion or lytics related Recommend MRI Brain with SWI. Recommend minimizing antiplatelet use to plavix alone till MRI results. Would recommend holding off on anticoagulation for 24-48 hours. Evan Mejia MD Department of Neurology [facility] Brief Op Note - Gretchen Yoon MD - 11/29/2019 8:38 PM EDT Brief Operative Note Patient Name: Angel Luis Salinas : [id number] MR#: [id number] Case Date: 11/29/2019 Surgeon: Surgeon(s) and Role: * Gretchen Yoon MD - Primary * Aidan Ward MD - Fellow Preoperative diagnosis: Inferior STEMI Postoperative diagnosis: Inferior STEMI Procedure(s) (LRB): CARDIAC CATHETERIZATION (N/A) Findings: Discrete 90% stenosis in the prox-to-mid RCA. Severe diffuse disease in the distal vessel. Discrete LCX stenosis in a non-culprit artery. S/P DESx3 in the [id number] RCA. Aspiration thrombectomy performed, and integrellin bolus x2+ infusion. Nicardipine given during case due to intermittent sluggish flow. Complications: None documented in this encounter Plan of Treatment Scheduled Referrals Name Type Priority Associated Order Schedule Diagnoses Referral to Cardiac Outpatient Referral Routine ST elevation O rdered: Rehab myocardial 12/08/2019 infarction involving right coronary artery Referral to Outpatient Referral Routine Acute ST elevation Or dered: Cholesterol Treatment myocardial 2019 Center infarction (STEMI) of inferior wall documented as of this encounter Procedures Procedure Name Priority Date/Time Associated Diagnosis Comme nts HC VENIPUNCTURE Routine 12/08/2019 12:39 Results for this PM EDT procedure are i n the results section. HC POTASSIUM Routine 12/08/2019 12:39 Results for this PM EDT procedure are i n the results section. TSH Routine 12/08/2019 6:28 Results for this AM EDT procedure are i n the results section. HC VENIPUNCTURE Routine 12/08/2019 6:28 Results f or this AM EDT procedure are i n the results section. HEPATIC FUNCTION PANEL Routine 12/08/2019 6:28 Re sults for this AM EDT procedure are i n the results section. HC VENIPUNCTURE STAT 12/08/2019 12:43 Results for this AM EDT procedure are i n the results section. BMP W/FASTING GLUCOSE Routine 12/08/2019 12:43 Re sults for this AM EDT procedure are i n the results section. HEMOGRAM Routine 12/08/2019 12:43 Results for this AM EDT procedure are i n the results section. DIFFERENTIAL, AUTOMATED Routine 12/08/2019 12:43 Results for this AM EDT procedure are i n the results section. HC CBC,PLT & AUTO DIFF Routine 12/08/2019 12:43 AM EDT HC MAGNESIUM, SERUM Routine 12/08/2019 12:43 Resu lts for this AM EDT procedure are i n the results section. HC POTASSIUM Timed 12/07/2019 8:39 Results for this PM EDT procedure are i n the results section. HC VENIPUNCTURE Routine 12/07/2019 4:02 Results f or this PM EDT procedure are i n the results section. HC POTASSIUM Routine 12/07/2019 4:02 Results for this PM EDT procedure are i n the results section. EKG 12-LEAD STAT 12/07/2019 11:58 Paroxysmal atrial Result s for this AM EDT fibrillation procedure are i n the results section. HC UNFRACTIONATED Routine 12/07/2019 11:43 Result s for this HEPARIN (HEP UFH) AM EDT procedure are in the results section. HC POTASSIUM Routine 12/07/2019 11:43 Results for this AM EDT procedure are i n the results section. HC UNFRACTIONATED STAT 12/07/2019 5:20 Results for this HEPARIN (HEP UFH) AM EDT procedure are in the results section. HC VENIPUNCTURE Routine 12/07/2019 5:20 Results f or this AM EDT procedure are i n the results section. HEMOGRAM Routine 12/07/2019 5:20 Results for this AM EDT procedure are i n the results section. DIFFERENTIAL, AUTOMATED Routine 12/07/2019 5:20 R esults for this AM EDT procedure are i n the results section. HC CBC,PLT & AUTO DIFF Routine 12/07/2019 5:20 AM EDT HC MAGNESIUM, SERUM Routine 12/07/2019 5:20 Resul ts for this AM EDT procedure are i n the results section. HC VENIPUNCTURE STAT 12/06/2019 10:14 Results for this PM EDT procedure are i n the results section. CT HEAD WO CONTRAST Routine 12/06/2019 7:01 Resul ts for this (GENERIC) PM EDT procedure are i n the results section. HC UNFRACTIONATED Timed 12/06/2019 4:20 Results for this HEPARIN (HEP UFH) PM EDT procedure are in the results section. HC VENIPUNCTURE Routine 12/06/2019 4:20 Results f or this PM EDT procedure are i n the results section. HC VENIPUNCTURE STAT 12/06/2019 10:02 Results for this AM EDT procedure are i n the results section. BMP W/FASTING GLUCOSE Routine 12/06/2019 3:36 Res ults for this AM EDT procedure are i n the results section. HC VENIPUNCTURE Routine 12/06/2019 3:36 Results f or this AM EDT procedure are i n the results section. HC MAGNESIUM, SERUM Routine 12/06/2019 3:36 Resul ts for this AM EDT procedure are i n the results section. HC UNFRACTIONATED STAT 12/05/2019 10:52 Result s for this HEPARIN (HEP UFH) PM EDT procedure are in the results section. HEMOGRAM Routine 12/05/2019 10:52 Results for this PM EDT procedure are i n the results section. DIFFERENTIAL, AUTOMATED Routine 12/05/2019 10:52 Results for this PM EDT procedure are i n the results section. HC CBC,PLT & AUTO DIFF Routine 12/05/2019 10:52 PM EDT MRI BRAIN WWO CONTRAST Routine 12/05/2019 7:59 Re sults for this (GENERIC) PM EDT procedure are i n the results section. HC VENIPUNCTURE Routine 12/05/2019 1:00 Results f or this PM EDT procedure are i n the results section. EKG 12-LEAD STAT 12/05/2019 10:52 Paroxysmal atrial Result s for this AM EDT fibrillation procedure are i n the results section. DUPLEX FOR DVT BILAT Routine 12/05/2019 7:00 Acute pulmonary R esults for this LEGS AM EDT embolism, procedure are i n unspecified the results pulmonary embolism section. type, unspecified whether acute cor pulmonale present BMP W/FASTING GLUCOSE Routine 12/05/2019 4:18 Res ults for this AM EDT procedure are i n the results section. HC VENIPUNCTURE Routine 12/05/2019 4:18 Results f or this AM EDT procedure are i n the results section. HC MAGNESIUM, SERUM Routine 12/05/2019 4:18 Resul ts for this AM EDT procedure are i n the results section. CT HEART FOR FUNCTION Routine 12/04/2019 1:56 Res ults for this (NON-CORONARY) W PM EDT procedure a re in CONTRAST the results section. HC VENIPUNCTURE Routine 12/04/2019 12:55 Results for this PM EDT procedure are i n the results section. EKG 12-LEAD Routine 12/04/2019 10:43 Paroxysmal atrial Result s for this AM EDT fibrillation procedure are i n the results section. BMP W/FASTING GLUCOSE Routine 12/04/2019 4:28 Res ults for this AM EDT procedure are i n the results section. HC VENIPUNCTURE Routine 12/04/2019 4:28 Results f or this AM EDT procedure are i n the results section. HC MAGNESIUM, SERUM Routine 12/04/2019 4:28 Resul ts for this AM EDT procedure are i n the results section. HC VENIPUNCTURE Routine 12/03/2019 7:55 Results f or this PM EDT procedure are i n the results section. HC VENIPUNCTURE Routine 12/03/2019 1:57 Results f or this PM EDT procedure are i n the results section. HC POTASSIUM Routine 12/03/2019 1:57 Results for this PM EDT procedure are i n the results section. BMP W/FASTING GLUCOSE Routine 12/03/2019 4:02 Res ults for this AM EDT procedure are i n the results section. HC HEMOGRAM Routine 12/03/2019 4:02 Results for this AM EDT procedure are i n the results section. HC MAGNESIUM, SERUM Routine 12/03/2019 4:02 Resul ts for this AM EDT procedure are i n the results section. XR CHEST ONE VIEW Routine 12/02/2019 1:00 Results for this PM EDT procedure are i n the results section. HC HEMOGRAM Routine 12/02/2019 12:50 Results for this PM EDT procedure are i n the results section. BMP W/FASTING GLUCOSE Routine 12/02/2019 4:55 Res ults for this AM EDT procedure are i n the results section. HC HEMOGRAM Routine 12/02/2019 4:55 Results for this AM EDT procedure are i n the results section. BLUE TUBE HOLD Routine 12/02/2019 4:55 Results fo r this AM EDT procedure are i n the results section. HC MAGNESIUM, SERUM Routine 12/02/2019 4:55 Resul ts for this AM EDT procedure are i n the results section. TRANSFUSE 1 UNIT Routine 12/01/2019 8:30 PLATELET PHERESIS PM EDT MRI BRAIN WO CONTRAST STAT 12/01/2019 7:25 Res ults for this PM EDT procedure are i n the results section. PREPARE PLATELETS, Routine 12/01/2019 6:20 Result s for this APHERESIS PM EDT procedure are i n the results section. DUPLEX FOR DVT, ARM, Routine 12/01/2019 5:08 Edema of upper Re sults for this UNILAT PM EDT extremity procedure are i n the results section. CT HEAD WO CONTRAST STAT 12/01/2019 2:29 Resul ts for this (GENERIC) PM EDT procedure are i n the results section. SCAN, PERIPHERAL BLOOD Timed 12/01/2019 12:51 R esults for this PM EDT procedure are i n the results section. HEMOGRAM Timed 12/01/2019 12:51 Results for this PM EDT procedure are i n the results section. DIFFERENTIAL, AUTOMATED Timed 12/01/2019 12:51 Results for this PM EDT procedure are i n the results section. HC CBC,PLT & AUTO DIFF Timed 12/01/2019 12:51 PM EDT COOX2 Routine 12/01/2019 11:42 Results for this AM EDT procedure are i n the results section. ABORH RECHECK STATUS Routine 12/01/2019 3:55 Resu lts for this AM EDT procedure are i n the results section. CRP, ACUTE INFLAMMATION Routine 12/01/2019 3:55 R esults for this AM EDT procedure are i n the results section. BMP W/FASTING GLUCOSE Routine 12/01/2019 3:55 Res ults for this AM EDT procedure are i n the results section. HC HEMOGRAM Routine 12/01/2019 3:55 Results for this AM EDT procedure are i n the results section. ABO/RH TYPING Routine 12/01/2019 3:55 Results for this AM EDT procedure are i n the results section. SEDIMENTATION RATE Routine 12/01/2019 3:55 Result s for this AM EDT procedure are i n the results section. ANTIBODY SCREEN Routine 12/01/2019 3:55 Results f or this AM EDT procedure are i n the results section. HC ANTIBODY Routine 12/01/2019 3:55 DETECTION,CAPTURE-R AM EDT HC TROPONIN T STAT 12/01/2019 3:55 Results for this AM EDT procedure are i n the results section. HC MAGNESIUM, SERUM Routine 12/01/2019 3:55 Resul ts for this AM EDT procedure are i n the results section. BLOOD GAS 2 ARTERIAL Routine 11/30/2019 10:39 Res ults for this PM EDT procedure are i n the results section. EKG 12-LEAD Routine 11/30/2019 9:07 ST elevation Results for this PM EDT myocardial procedure are i n infarction involving the res ults right coronary section. artery URINALYSIS MICROSCOPIC Routine 11/30/2019 8:40 Re sults for this EXAM PM EDT procedure are i n the results section. URINALYSIS WITH REFLEX Routine 11/30/2019 8:40 Re sults for this CULTURE PM EDT procedure are i n the results section. HC BLOOD CULTURE- STAT 11/30/2019 8:30 Results for this PM EDT procedure are i n the results section. HC BLOOD CULTURE- STAT 11/30/2019 8:30 Results for this PM EDT procedure are i n the results section. TROPONIN Routine 11/30/2019 8:30 Results for this PM EDT procedure are i n the results section. PRO-BRAIN NATRIURETIC Routine 11/30/2019 8:30 Res ults for this PEPTIDE PM EDT procedure are i n the results section. HC MAGNESIUM, SERUM Routine 11/30/2019 8:30 Resul ts for this PM EDT procedure are i n the results section. BASIC METABOLIC PANEL Routine 11/30/2019 8:30 Res ults for this (NON-FASTING) PM EDT procedure are in the results section. XR CHEST ONE VIEW STAT 11/30/2019 8:20 Results for this PM EDT procedure are i n the results section. BLOOD GAS 2 ARTERIAL Routine 11/30/2019 8:09 Resu lts for this PM EDT procedure are i n the results section. CT [place] W STAT 11/30/2019 4:36 Res ults for this CONTRAST PM EDT procedure are i n the results section. CT HEAD WO CONTRAST STAT 11/30/2019 4:36 Resul ts for this (GENERIC) PM EDT procedure are i n the results section. EKG 12-LEAD STAT 11/30/2019 1:55 ST elevation Results for this PM EDT myocardial procedure are i n infarction involving the res ults right coronary section. artery ECHOCARDIOGRAM COMPLETE Routine 11/30/2019 12:01 ST elevation Results for this PM EDT myocardial procedure are i n infarction involving the res ults right coronary section. artery CT HEAD WO CONTRAST STAT 11/30/2019 10:41 Resu lts for this (GENERIC) AM EDT procedure are i n the results section. HC TROPONIN T STAT 11/30/2019 8:30 Results for this AM EDT procedure are i n the results section. MAGNESIUM STAT 11/30/2019 8:30 Results for this AM EDT procedure are i n the results section. HC CREATINE Routine 11/30/2019 8:30 Results for this PHOSPHOKINASE, SERUM AM EDT procedu re are in the results section. EKG 12-LEAD STAT 11/30/2019 7:57 ST elevation Results for this AM EDT myocardial procedure are i n infarction involving the res ults left main coronary section. artery ST elevation myocardial infarction involving right coronary artery BMP W/FASTING GLUCOSE Routine 11/30/2019 2:15 Res ults for this AM EDT procedure are i n the results section. HC HEMOGRAM Routine 11/30/2019 2:15 Results for this AM EDT procedure are i n the results section. HC TROPONIN T STAT 11/30/2019 2:15 Results for this AM EDT procedure are i n the results section. HC LDL CHOLESTEROL, Routine 11/30/2019 2:15 Resul ts for this DIRECT AM EDT procedure are i n the results section. HC HEMOGLOBIN A1C Routine 11/30/2019 2:15 Results for this AM EDT procedure are i n the results section. HC CREATINE Routine 11/30/2019 2:15 Results for this PHOSPHOKINASE, SERUM AM EDT procedu re are in the results section. LIPID PANEL (REFLEX Routine 11/30/2019 2:15 Resul ts for this DIRECT LDL) AM EDT procedure are i n the results section. HC TROPONIN T STAT 11/29/2019 6:35 Results for this PM EDT procedure are i n the results section. HC CREATINE Routine 11/29/2019 6:35 Results for this PHOSPHOKINASE, SERUM PM EDT procedu re are in the results section. EKG 12-LEAD Routine 11/29/2019 3:58 ST elevation Results for this PM EDT myocardial procedure are i n infarction involving the res ults right coronary section. artery XR CHEST ONE VIEW Routine 11/29/2019 3:08 Results for this PM EDT procedure are i n the results section. HEMOGRAM Routine 11/29/2019 2:32 Results for this PM EDT procedure are i n the results section. DIFFERENTIAL, AUTOMATED Routine 11/29/2019 2:32 R esults for this PM EDT procedure are i n the results section. HC PARTIAL Routine 11/29/2019 2:32 Results for this THROMBOPLASTIN TIME PM EDT procedur e are in the results section. HC PROTHROMBIN TIME Routine 11/29/2019 2:32 Resul ts for this PM EDT procedure are i n the results section. HC CBC,PLT & AUTO DIFF Routine 11/29/2019 2:32 PM EDT HC TROPONIN T STAT 11/29/2019 2:32 Results for this PM EDT procedure are i n the results section. HC PROBNP Routine 11/29/2019 2:32 Results for this PM EDT procedure are i n the results section. HC MAGNESIUM, SERUM Routine 11/29/2019 2:32 Resul ts for this PM EDT procedure are i n the results section. HC CREATINE Routine 11/29/2019 2:32 Results for this PHOSPHOKINASE, SERUM PM EDT procedu re are in the results section. HEPATIC FUNCTION PANEL Routine 11/29/2019 2:32 Re sults for this PM EDT procedure are i n the results section. BASIC METABOLIC PANEL Routine 11/29/2019 2:32 Res ults for this (NON-FASTING) PM EDT procedure are in the results section. EKG 12-LEAD Routine 11/29/2019 11:38 ST elevation Results for this AM EDT myocardial procedure are i n infarction involving the res ults right coronary section. artery CARDIAC CATHETERIZATION Routine 11/29/2019 11:15 Results for this AM EDT procedure are i n the results section. POINT OF CARE BLOOD GAS Routine 11/29/2019 9:17 R esults for this HISTORICAL AM EDT procedure are i n the results section. EKG 12-LEAD STAT 11/29/2019 9:01 ST elevation Results for this AM EDT myocardial procedure are i n infarction involving the res ults left main coronary section. artery documented in this encounter Results Potassium (12/08/2019 12:39 PM EDT) P athologist Signature Potassium 3.9 3.5 - 5.0 [facility] mmol/L [facility] LABORATORY Comment: Please note: ??Patients with WBC >100,00 0 may have falsely elevated Potassium levels. ??For accurate Potassium quantif ication in these patients send serum separator tube (gold top) for subsequent determinations. ??Contact the Clinical Chemistry Laboratory if there are any qu estions. Specimen Anatomical Collection Method Collection Time Receive d Time (Source) Location / / Volume Laterality Blood specimen 12/08/2019 12:39 0 (specimen) PM EDT 12:47 PM EDT Resulting Agency Comment Spec In Lab Gretchen Yoon MD CHEMISTRY ORDERABLES Performing Organization Address City/State/[place] [address] (ABNORMAL) Hemogram (12/08/2019 12:39 PM EDT) Analysis Performed At Patho logist Time Signature WBC 9.9 (H) 4.0 - 9.5 [facility] LABORATORY RBC 4.51 (L) 4.58 - [place] D[place] 5.54 [facility] x10(6)/[facility] LABORATORY Hemoglobin 13.0 (L) 13.7 - [place] [facility] 16.5 gm/dL [facility] LABORATORY Hematocrit 40.5 40.5 - [place] [facility] 48.5 % [facility] LABORATORY MCV 89.8 82.9 - [facility] DOV 93.1 [facility] LABORATORY MCH 28.8 27.5 - [place] [facility] 32.1 pg [facility] LABORATORY MCHC 32.1 32.0 - [place] [facility] 35.7 gm/dL [facility] LABORATORY Platelets 214 145 - 357 [facility] x10(3)/[facility] LABORATORY RDWSD 49.2 (H) 36.0 - [place] [facility] 45.0 [facility] LABORATORY RDWCV 15.1 (H) 11.4 - [place] [facility] 13.8 % [facility] LABORATORY MPV 12.1 7.6 - 12.9 [facility] nRBC % Auto 0.0 % [facility] LABORATORY nRBC Abs Auto 0.000 0.000 - [place] 0.000 [facility] x10(3)/[facility] LABORATORY Specimen Anatomical Collection Method Collection Time Receive d Time (Source) Location / / Volume Laterality Blood specimen 12/08/2019 12:39 0 (specimen) PM EDT 12:47 PM EDT Resulting Agency Comment Spec In Lab Gretchen Yoon MD HEMATOLOGY ORDERABLES Performing Organization Address City/State/ZIP Code Phon e Number [address] Hepatic Function Panel (12/08/2019 6:28 AM EDT) athologist Signature Total Protein 6.6 6.1 - 8.0 [facility] DOV gm/dL [facility] LABORATORY Albumin 3.2 3.2 - 5.2 [place] [facility] gm/dL [facility] LABORATORY AST 18 0 - 39 [place] [facility] unit/L [facility] LABORATORY ALT 13 0 - 55 [place] [facility] unit/L [facility] LABORATORY Alk Phos 64 40 - 130 [facility] D[facility] unit/L [facility] LABORATORY Total 0.4 0.2 - 1.3 [facility] Bilirubin mg/dL [facility] LABORATORY Bili, Direct 0.1 0.0 - 0.3 [facility] DOV mg/dL [facility] LABORATORY Specimen Anatomical Collection Method Collection Time Receive d Time (Source) Location / / Volume Laterality Blood specimen Venous Draw / 12/08/2019 6:28 AM 2019 6:36 (specimen) Unknown EDT AM EDT Resulting Agency Comment Spec In Lab Riki Stevens MD CHEMISTRY ORDERABLES Performing Organization Address City/[facility]/ZIP Code Phon e Number [address] (ABNORMAL) TSH (12/08/2019 6:28 AM EDT) athologist Signature TSH 5.27 (H) 0.27 - 4.20 [facility] DOV mcIU/mL [facility] LABORATORY Specimen Anatomical Collection Method Collection Time Receive d Time (Source) Location / / Volume Laterality Blood specimen Venous Draw / 12/08/2019 6:28 AM 2019 6:36 (specimen) Unknown EDT AM EDT Resulting Agency Comment Spec In Lab Darrell Glasgow MD CHEMISTRY ORDERABLES Performing Organization Address City/[facility]/ZIP Code Phon e Number [address] Potassium (12/08/2019 6:28 AM EDT) P athologist Signature Potassium 4.2 3.5 - 5.0 [facility] mmol/L [facility] LABORATORY Comment: Please note: ??Patients with WBC >100,00 0 may have falsely elevated Potassium levels. ??For accurate Potassium quantif ication in these patients send serum separator tube (gold top) for subsequent determinations. ??Contact the Clinical Chemistry Laboratory if there are any qu estions. Specimen Anatomical Collection Method Collection Time Receive d Time (Source) Location / / Volume Laterality Blood specimen 12/08/2019 6:28 AM 020 6:33 (specimen) EDT AM EDT Resulting Agency Comment Spec In Lab Paris Lagos MD CHEMISTRY ORDERABLES Performing Organization Address City/State/ZIP Code Phon e Number [place] [phone] (ABNORMAL) Differential, Automated (12/08/2019 12:43 AM EDT) Patholo gist Method Time Signature Neutrophils % 60.7 % [facility] LABORATORY Neutr Abs (ANC) 6.81 (H) 1.70 - [facility] 6.10 [facility] x10(3)/[facility] LABORATORY Lymphocytes % 23.4 % [facility] LABORATORY Lymphocytes Abs 2.6 0.9 - 3.2 [facility] x10(3)/[facility] LABORATORY Monocytes % 10.0 % [facility] LABORATORY Monocyte Abs 1.1 (H) 0.3 - 0.9 [facility] x10(3)/[facility] LABORATORY Eosinophils % 3.7 % [facility] LABORATORY Eosinophils Abs 0.4 0.0 - 0.4 [facility] x10(3)/[facility] LABORATORY Basophils % 1.2 % [facility] LABORATORY Basophils Abs 0.1 0.0 - 0.1 [facility] x10(3)/[facility] LABORATORY Immature Gran % 1.00 % [facility] LABORATORY Comment: Immature granulocytes(IG's)percentage an d absolute count will include metamyelocytes, myelocytes, and promyelo cytes. Blood smears from CBCs yielding IG's will be scanned manually for concor dance. If this scan disagrees with the automated IG or if promyelocytes are not ed, a manual differential will be performed. Pita Gran Abs 0.11 (H) 0.00 - 0.04 x10(3)/[facility] LABORATORY Specimen Anatomical Collection Method Collection Time Receive d Time (Source) Location / / Volume Laterality Blood specimen 12/08/2019 12:43 0 (specimen) AM EDT 12:52 AM EDT Resulting Agency Comment Spec In Lab Riki Stevens MD HEMATOLOGY ORDERABLES Performing Organization Address City/State/[place] [address] (ABNORMAL) Hemogram (12/08/2019 12:43 AM EDT) Analysis Performed At Patho logist Time Signature WBC 11.2 (H) 4.0 - 9.5 [facility] x10(3)/[facility] LABORATORY RBC 4.46 (L) 4.58 - [facility] DOV 5.54 [facility] x10(6)/[facility] LABORATORY Hemoglobin 13.1 (L) 13.7 - [facility] 16[facility] gm/dL [facility] LABORATORY Hematocrit 40.5 40.5 - [facility] DOV 48.5 % [facility] LABORATORY MCV 90.8 82.9 - [facility]1 [facility] LABORATORY MCH 29.4 27.5 - [facility] DOV 32.1 pg [facility] LABORATORY MCHC 32.3 32.0 - [facility] DOV 35.7 gm/dL [facility] LABORATORY Platelets 215 145 - 357 [facility] x10(3)/[facility] LABORATORY RDWSD 49.8 (H) 36.0 - [facility] DOV 45.0 [facility] LABORATORY RDWCV 15.2 (H) 11.4 - [facility] DOV 13.8 % [facility] LABORATORY MPV 12.3 7.6 - 12.9 [facility] LABORATORY nRBC % Auto 0.0 % [facility] LABORATORY nRBC Abs Auto 0.000 0.000 - [facility] DOV 0.000 [facility] x10(3)/[facility] LABORATORY Specimen Anatomical Collection Method Collection Time Receive d Time (Source) Location / / Volume Laterality Blood specimen 12/08/2019 12:43 0 (specimen) AM EDT 12:52 AM EDT Resulting Agency Comment Spec In Lab Riki Stevens MD HEMATOLOGY ORDERABLES Performing Organization Address City/State/ZIP Code Phon e Number [address] Magnesium (12/08/2019 12:43 AM EDT) athologist Signature Magnesium 1.01 0.69 - 1.07 [facility]/L [facility] LABORATORY Specimen Anatomical Collection Method Collection Time Receive d Time (Source) Location / / Volume Laterality Blood specimen 12/08/2019 12:43 0 (specimen) AM EDT 12:52 AM EDT Resulting Agency Comment Spec In Lab Gretchen Yoon MD CHEMISTRY ORDERABLES Performing Organization Address City/State/ZIP [place] [address] (ABNORMAL) BMP w/fasting Glucose (12/08/2019 12:43 AM EDT) P athologist Signature Glucose 106 (H) 65 - 99 [facility] F[facility] mg/dL [facility] LABORATORY Comment: ?Fasting* Glucose Interpretive C riteria Normal ?65-99 mg/dL Impaired Fasting glucose ?100-125 mg/dL Consistent with Diabetes Mellitus ? >or= 126 mg/dL *Fasting is defined as no caloric intake for at least 8 hours In the absence of unequivocal hypergly cemia a plasma glucose value of >or= 126 mg/dL should be repeated on a subseq uent day. Diagnosis and Classification of Diabetes Mellitus, Position Statement from the [place] [employer]. ??Diabete s Care, Volume 33, Supplement 1, Jul 2009 BUN 14 10 - 20 mg/dL [facility] DOV [facility] LABORATORY Creatinine 1.16 0.80 - 1.50 mg/dL [facility] LABORATORY Sodium 134 (L) 135 - 145 mmol/L [facility] LABORATORY Potassium 4.0 3.5 - 5.0 mmol/L [facility] LABORATORY Comment: Please note: ??Patients with WBC >100,00 0 may have falsely elevated Potassium levels. ??For accurate Potassium quantif ication in these patients send serum separator tube (gold top) for subsequent determinations. ??Contact the Clinical Chemistry Laboratory if there are any qu estions. Chloride 99 98 - 107 mmol/L [facility] LABORATORY CO2 19 (L) 22 - 31 mmol/L [facility] LABORATORY Anion Gap 16 (H) 5 - 15 mmol/L [facility] LABORATORY Calcium 8.9 8.5 - 10.5 mg/dL [facility] LABORATORY Estimated GFR 62 >=60 mL/min/1.73 m?? [facility] LABORATORY Comment: The eGFR was calculated using the CKD-EP I equation. As with all creatinine based estimates of kidney function, eGFR values calculated with the CKD-EPI equation are not accurate in patients wi th acute kidney failure, extremes of body mass or the acutely ill. [email or web address] eGFR 72 >=60 mL/min/1.73 m?? [facility] LABORATORY Comment: The eGFR was calculated using the CKD-EP I equation. As with all creatinine based estimates of kidney function, eGFR values calculated with the CKD-EPI equation are not accurate in patients wi th acute kidney failure, extremes of body mass or the acutely ill. [email or web address]/[facility] Specimen Anatomical Collection Method Collection Time Receive d Time (Source) Location / / Volume Laterality Blood specimen 12/08/2019 12:43 0 (specimen) AM EDT 12:52 AM EDT Resulting Agency Comment Spec In Lab Gretchen Yoon MD CHEMISTRY ORDERABLES Performing Organization Address City/State/ZIP Code Phon e Number [place] [phone]OS[address] LAB[address] Drive Heparin (unfractionated) Level (12/08/2019 12:43 AM EDT) athologist Signature Heparin UFH 0.60 IU/mL [facility] LABORATORY Comment: Guidelines for therapeutic unfractionate d heparin levels are summarized below. Heparin (Anti-Xa) levels should be deter mined in a plasma sample that has been drawn 6 hours after a dose change i.e., steady-state has been reached. DRUG ?Dos ing Schedule ? Target Peak Steady-State ?Heparin (Anti-Xa) Levels (Units/mL) Unfractionated ?Continuous inf usion ?0.3-0.7 Heparin ?0.3-0.6 fo r some neurology indications Specimen Anatomical Collection Method Collection Time Receive d Time (Source) Location / / Volume Laterality Blood specimen 12/08/2019 12:43 0 (specimen) AM EDT 12:52 AM EDT Resulting Agency Comment Spec In Lab Paris Lagos MD HEMATOLOGY ORDERABLES Performing Organization Address City/State/[place] [address] Potassium (12/07/2019 8:39 PM EDT) athologist Signature Potassium 4.1 3.5 - 5.0 [facility] mmol/L [facility] LABORATORY Comment: Please note: ??Patients with WBC >100,00 0 may have falsely elevated Potassium levels. ??For accurate Potassium quantif ication in these patients send serum separator tube (gold top) for subsequent determinations. ??Contact the Clinical Chemistry Laboratory if there are any qu estions. Specimen Anatomical Collection Method Collection Time Receive d Time (Source) Location / / Volume Laterality Blood specimen 12/07/2019 8:39 PM 020 9:00 (specimen) EDT PM EDT Resulting Agency Comment Spec In Lab Paris Lagos MD CHEMISTRY ORDERABLES Performing Organization Address City/State/ZIP Code Phon e Number [address] Potassium (12/07/2019 4:02 PM EDT) P athologist Signature Potassium 4.0 3.5 - 5.0 [facility] D[facility] mmol/L [facility] LABORATORY Comment: Please note: ??Patients with WBC >100,00 0 may have falsely elevated Potassium levels. ??For accurate Potassium quantif ication in these patients send serum separator tube (gold top) for subsequent determinations. ??Contact the Clinical Chemistry Laboratory if there are any qu estions. Specimen Anatomical Collection Method Collection Time Receive d Time (Source) Location / / Volume Laterality Blood specimen 12/07/2019 4:02 PM 020 4:08 (specimen) EDT PM EDT Resulting Agency Comment Spec In Lab Gretchen Yoon MD CHEMISTRY ORDERABLES Performing Organization Address City/[facility]/ZIP [place] [address] (ABNORMAL) Hemogram (12/07/2019 4:02 PM EDT) Analysis Performed At Patho logist Time Signature WBC 17.4 (H) 4.0 - 9.5 [place] [facility] x10(3)/[facility] LABORATORY RBC 4.58 4.58 - [place] [facility] 5.54 [facility] x10(6)/[facility] LABORATORY Hemoglobin 13.5 (L) 13.7 - [place] [facility] 16.5 gm/dL [facility] LABORATORY Hematocrit 40.8 40.5 - [place] [facility] 48.5 % [facility] LABORATORY MCV 89.1 82.9 - [place] [facility] 93.1 [facility] LABORATORY MCH 29.5 27.5 - [place] [facility] 32.1 pg [facility] LABORATORY MCHC 33.1 32.0 - [facility] [facility] 35.7 gm/dL [facility] LABORATORY Platelets 238 145 - 357 [place] [facility] x10(3)/[facility] LABORATORY RDWSD 48.8 (H) 36.0 - [place] [facility] 45.0 [facility] LABORATORY RDWCV 15.0 (H) 11.4 - [facility] DOV 13.8 % [facility] LABORATORY MPV 12.2 7.6 - 12.9 [facility] D[facility] LABORATORY nRBC % Auto 0.0 % [facility] LABORATORY nRBC Abs Auto 0.000 0.000 - [place] MONAE 0.000 [facility] x10(3)/[facility] LABORATORY Specimen Anatomical Collection Method Collection Time Receive d Time (Source) Location / / Volume Laterality Blood specimen 12/07/2019 4:02 PM 020 4:08 (specimen) EDT PM EDT Resulting Agency Comment Spec In Lab Gretchen Yoon MD HEMATOLOGY ORDERABLES Performing Organization Address City/[facility]/[place] [address] EKG 12 Lead (12/07/2019 11:58 AM EDT) Component Value Ref Range Test Analysis Performed Pathologis t Method Time At Signature Ventricular rate 188 BPM MUSE SYSTEM Atrial Rate 188 BPM MUSE SYSTEM P-R Interval 86 ms MUSE SYSTEM QRS Duration 88 ms MUSE SYSTEM Q-T Interval 240 ms MUSE SYSTEM QTC Calculated 424 ms MUSE SYSTEM (Bezet) Calculated P -12 degrees MUSE SYSTEM Jackson Calculated R 10 degrees MUSE SYSTEM Jackson Calculated T -138 degrees MUSE SYSTEM [place] INTERPRETATION Supraventricular tachycardia MUSE SYSTEM Low voltage QRS Abnormal ECG When compared with ECG of 05-DEC-2019 10:52, Significant changes have occurred Confirmed by MD Lobo, Gumaro ([id number]) on 12/07/2019 12:29:52 PM Specimen Anatomical Collection Method Collection Time Receive d Time (Source) Location / / Volume Laterality 12/07/2019 11:58 12/07/2019 AM EDT 12:29 PM EDT Paris Lagos MD ECG ORDERABLES Performing Organization Address City/State/ZIP Code Phon e Number MUSE SYSTEM Potassium (12/07/2019 11:43 AM EDT) P athologist Signature Potassium 4.2 3.5 - 5.0 [facility] mmol/L [facility] LABORATORY Comment: Please note: ??Patients with WBC >100,00 0 may have falsely elevated Potassium levels. ??For accurate Potassium quantif ication in these patients send serum separator tube (gold top) for subsequent determinations. ??Contact the Clinical Chemistry Laboratory if there are any qu estions. Specimen Anatomical Collection Method Collection Time Receive d Time (Source) Location / / Volume Laterality Blood specimen 12/07/2019 11:43 0 (specimen) AM EDT 12:05 PM EDT Resulting Agency Comment Spec In Lab Paris Lagos MD CHEMISTRY ORDERABLES Performing Organization Address [facility] [place] [address] Heparin (unfractionated) Level (12/07/2019 11:43 AM EDT) athologist Signature Heparin UFH 0.59 IU/mL [facility] LABORATORY Comment: Guidelines for therapeutic unfractionate d heparin levels are summarized below. Heparin (Anti-Xa) levels should be deter mined in a plasma sample that has been drawn 6 hours after a dose change i.e., steady-state has been reached. DRUG ?Dos ing Schedule ? Target Peak Steady-State ?Heparin (Anti-Xa) Levels (Units/mL) Unfractionated ?Continuous inf usion ?0.3-0.7 Heparin ?0.3-0.6 fo r some neurology indications Specimen Anatomical Collection Method Collection Time Receive d Time (Source) Location / / Volume Laterality Blood specimen 12/07/2019 11:43 0 (specimen) AM EDT 12:05 PM EDT Resulting Agency Comment Spec In Lab Paris Lagos MD HEMATOLOGY ORDERABLES Performing Organization Address [facility] [facility] [place] [address] Heparin (unfractionated) Level (12/07/2019 5:20 AM EDT) P athologist Signature Heparin UFH 0.53 IU/mL [facility] LABORATORY Comment: Guidelines for therapeutic unfractionate d heparin levels are summarized below. Heparin (Anti-Xa) levels should be deter mined in a plasma sample that has been drawn 6 hours after a dose change i.e., steady-state has been reached. DRUG ?Dos ing Schedule ? Target Peak Steady-State ?Heparin (Anti-Xa) Levels (Units/mL) Unfractionated ?Continuous inf usion ?0.3-0.7 Heparin ?0.3-0.6 fo r some neurology indications Specimen Anatomical Collection Method Collection Time Receive d Time (Source) Location / / Volume Laterality Blood specimen 12/07/2019 5:20 AM 020 5:37 (specimen) EDT AM EDT Resulting Agency Comment Spec In Lab Paris Lagos MD HEMATOLOGY ORDERABLES Performing Organization Address City/State/[place] [address] (ABNORMAL) Differential, Automated (12/07/2019 5:20 AM EDT) Patholo gist Method Time Signature Neutrophils % 62.4 % [facility] LABORATORY Neutr Abs (ANC) 5.46 1.70 - [facility] 6.10 [facility] x10(3)/[facility] LABORATORY Lymphocytes % 20.3 % [facility] LABORATORY Lymphocytes Abs 1.8 0.9 - 3.2 [facility] x10(3)/[facility] LABORATORY Monocytes % 11.0 % [facility] LABORATORY Monocyte Abs 1.0 (H) 0.3 - 0.9 [facility] x10(3)/[facility] LABORATORY Eosinophils % 4.5 % [facility] LABORATORY Eosinophils Abs 0.4 0.0 - 0.4 [facility] x10(3)/[facility] LABORATORY Basophils % 0.9 % [facility] LABORATORY Basophils Abs 0.1 0.0 - 0.1 [facility] x10(3)/[facility] LABORATORY Immature Gran % 0.90 % [facility] LABORATORY Comment: Immature granulocytes(IG's)percentage an d absolute count will include metamyelocytes, myelocytes, and promyelo cytes. Blood smears from CBCs yielding IG's will be scanned manually for concor dance. If this scan disagrees with the automated IG or if promyelocytes are not ed, a manual differential will be performed. Pita Gran Abs 0.08 (H) 0.00 - 0.04 x10(3)/[facility] LABORATORY Specimen Anatomical Collection Method Collection Time Receive d Time (Source) Location / / Volume Laterality Blood specimen 12/07/2019 5:20 AM 020 5:37 (specimen) EDT AM EDT Resulting Agency Comment Spec In Lab Riki Stevens MD HEMATOLOGY ORDERABLES Performing Organization Address City/State/ZIP Code [place] [address] (ABNORMAL) Hemogram (12/07/2019 5:20 AM EDT) Analysis Performed At Patho logist Time Signature WBC 8.7 4.0 - 9.5 [facility] x10(3)/[facility] LABORATORY RBC 4.20 (L) 4.58 - [facility] 5.54 [facility] x10(6)/[facility] LABORATORY Hemoglobin 12.3 (L) 13.7 - [facility]dL [facility] LABORATORY Hematocrit 37.4 (L) 40.5 - [facility] 48.5 % [facility] LABORATORY MCV 89.0 82.9 - [facility] 93.1 fL [facility] LABORATORY MCH 29.3 27.5 - [facility] 32[facility] LABORATORY MCHC 32.9 32.0 - [facility] MON[facility] 35.7 gm/dL [facility] LABORATORY Platelets 181 145 - 357 [facility] MONAE x10(3)/[facility] LABORATORY RDWSD 47.7 (H) 36.0 - M[facility]INA MONAE 45.0 [facility] LABORATORY RDWCV 14.8 (H) 11.4 - [facility] MONAE 13.8 % [facility] LABORATORY MPV 12.3 7.6 - 12.9 MELINA DOV [facility] LABORATORY nRBC % Auto 0.0 % [facility] LABORATORY nRBC Abs Auto 0.000 0.000 - [facility] MONAE 0.000 [facility] x10(3)/[facility] LABORATORY Specimen Anatomical Collection Method Collection Time Receive d Time (Source) Location / / Volume Laterality Blood specimen 12/07/2019 5:20 AM 020 5:37 (specimen) EDT AM EDT Resulting Agency Comment Spec In Lab Riki Stevens MD HEMATOLOGY ORDERABLES Performing Organization Address City/[facility]/ZIP Code Phon e Number [address] Magnesium (12/07/2019 5:20 AM EDT) P athologist Signature Magnesium 0.89 0.69 - 1.07 [facility] mmol/L [facility] LABORATORY Specimen Anatomical Collection Method Collection Time Receive d Time (Source) Location / / Volume Laterality Blood specimen 12/07/2019 5:20 AM 020 5:37 (specimen) EDT AM EDT Resulting Agency Comment Spec In Lab Gretchen Yoon MD CHEMISTRY ORDERABLES Performing Organization Address City/[facility]/ZIP Code Phon e Number [address] (ABNORMAL) BMP w/fasting Glucose (12/07/2019 5:20 AM EDT) P athologist Signature Glucose 100 (H) 65 - 99 [facility] F[facility] mg/dL [facility] LABORATORY Comment: ?Fasting* Glucose Interpretive C riteria Normal ?65-99 mg/dL Impaired Fasting glucose ?100-125 mg/dL Consistent with Diabetes Mellitus ? >or= 126 mg/dL *Fasting is defined as no caloric intake for at least 8 hours In the absence of unequivocal hypergly cemia a plasma glucose value of >or= 126 mg/dL should be repeated on a subseq uent day. Diagnosis and Classification of Diabetes Mellitus, Position Statement from the [place] [employer]. ??Diabete s Care, Volume 33, Supplement 1, Jul 2009 BUN 14 10 - 20 mg/dL [facility] LABORATORY Creatinine 0.83 0.80 - 1.50 mg/dL [facility] LABORATORY Sodium 135 135 - 145 mmol/L [facility] LABORATORY Potassium 3.8 3.5 - 5.0 mmol/L [facility] LABORATORY Comment: Please note: ??Patients with WBC >100,00 0 may have falsely elevated Potassium levels. ??For accurate Potassium quantif ication in these patients send serum separator tube (gold top) for subsequent determinations. ??Contact the Clinical Chemistry Laboratory if there are any qu estions. Chloride 101 98 - 107 mmol/L [facility] LABORATORY CO2 20 (L) 22 - 31 mmol/L [facility] LABORATORY Anion Gap 14 5 - 15 mmol/L [facility] LABORATORY Calcium 8.8 8.5 - 10.5 mg/dL [facility] LABORATORY Estimated GFR 87 >=60 mL/min/1.73 m?? [facility] LABORATORY Comment: The eGFR was calculated using the CKD-EP I equation. As with all creatinine based estimates of kidney function, eGFR values calculated with the CKD-EPI equation are not accurate in patients wi th acute kidney failure, extremes of body mass or the acutely ill. http://[employer]/DHMCnkf eGFR 101 >=60 mL/min/1.73 m?? [facility] LABORATORY Comment: The eGFR was calculated using the CKD-EP I equation. As with all creatinine based estimates of kidney function, eGFR values calculated with the CKD-EPI equation are not accurate in patients wi th acute kidney failure, extremes of body mass or the acutely ill. [email or web address]DHMCnkf Specimen Anatomical Collection Method Collection Time Receive d Time (Source) Location / / Volume Laterality Blood specimen 12/07/2019 5:20 AM 020 5:37 (specimen) EDT AM EDT Resulting Agency Comment Spec In Lab Gretchen Yoon MD CHEMISTRY ORDERABLES Performing Organization Address [facility] [place] [address] Heparin (unfractionated) Level (12/06/2019 10:14 PM EDT) athologist Signature Heparin UFH 0.29 IU/mL [facility] LABORATORY Comment: Guidelines for therapeutic unfractionate d heparin levels are summarized below. Heparin (Anti-Xa) levels should be deter mined in a plasma sample that has been drawn 6 hours after a dose change i.e., steady-state has been reached. DRUG ?Dos ing Schedule ? Target Peak Steady-State ?Heparin (Anti-Xa) Levels (Units/mL) Unfractionated ?Continuous inf usion ?0.3-0.7 Heparin ?0.3-0.6 fo r some neurology indications Specimen Anatomical Collection Method Collection Time Receive d Time (Source) Location / / Volume Laterality Blood specimen 12/06/2019 10:14 0 (specimen) PM EDT 10:27 PM EDT Resulting Agency Comment Spec In Lab Paris Lagos MD HEMATOLOGY ORDERABLES Performing Organization Address [facility] [place] [address] Head wo Contrast (Generic) (12/06/2019 7:01 PM EDT) Anatomical Region Laterality Modality Head Computed Tomography Specimen (Source) Anatomical Location Collection Method / Collectio n Time Received Time / Laterality Volume Impressions 12/06/2019 10:06 PM EDT Unchanged size but mildly decreased density of the intraparenchymal hemorrhage along the course of the left optic tract with unchanged mild edema. Preliminary report signed by: Silvio Baker at 12/06/2019 8:02 PM I have personally reviewed the image(s) and the resident's interpretation and agree with the findings, Merari Collins at 10:06 PM Thank you for letting us participate in the care of this patient. For questions regarding this report, please contact [facility] number below. ? Narrative 12/06/2019 10:06 PM EDT EXAMINATION: CT HEAD WO CONTRAST (GENERIC) CLINICAL HISTORY: Intracranial hemorrhag e, follow up Pt with ICH now on heparin drip for PE, confirm bleed stable TECHNIQUE: CT head performed without intravenous co ntrast administration. COMPARISON: Brain MRI 12/05/[address] 12/01/2019 FINDINGS: Ventricles are normal in size. Basal cis terns are patent. Unchanged size of the high attenuation 2.1 x 0.6 x 0.6 cm jocy angelo extending along the course of the proximal left optic tract (axial series 2 image 81) with is mildly less dense. There is unchanged minimal low-attenuati on within the surrounding brain parenchyma consistent with edema. No sig nificant mass effect. No new sites of acute intracranial hemor rhage. No extra-axial fluid collections. Silveira matter white matter differentiation is well preserved. No evidence of large acute infarction. Orbits are grossly unremarkable. Partial ly visualized mild mucosal thickening in the inferior maxillary sinuses. The visu alized paranasal sinuses otherwise clear. Mastoid air cells are clear. No s uspicious osseous lesions. Probable osseous hemangioma within the superior l eft diploic space at the vertex. No calvarial fracture. Normal extra calvari al soft tissues. Procedure Note Merari Collins MD - 12/06/2019Formatting o f this note might be different from the original. EXAMINATION: CT HEAD WO CONTRAST (GENERI C) CLINICAL HISTORY: Intracranial hemorrhag e, follow up Pt with ICH now on heparin drip for PE, confirm bleed stable TECHNIQUE: CT head performed without intravenous co ntrast administration. COMPARISON: Brain MRI 12/05/[address] 12/01/2019 FINDINGS: Ventricles are normal in size. Basal cis terns are patent. Unchanged size of the high attenuation 2.1 x 0.6 x 0.6 cm jocy angelo extending along the course of the proximal left optic tract (axial series 2 image 81) with is mildly less dense. There is unchanged minimal low-attenuati on within the surrounding brain parenchyma consistent with edema. No sig nificant mass effect. No new sites of acute intracranial hemor rhage. No extra-axial fluid collections. Silveira matter white matter differentiation is well preserved. No evidence of large acute infarction. Orbits are grossly unremarkable. Partial ly visualized mild mucosal thickening in the inferior maxillary sinuses. The visu alized paranasal sinuses otherwise clear. Mastoid air cells are clear. No s uspicious osseous lesions. Probable osseous hemangioma within the superior l eft diploic space at the vertex. No calvarial fracture. Normal extra calvari al soft tissues. IMPRESSION Unchanged size but mildly decreased dens ity of the intraparenchymal hemorrhage along the course of the left optic tract with unchanged mild edema. Preliminary report signed by: Silvio Baker at 12/06/2019 8:02 PM I have personally reviewed the image(s) and the resident's interpretation and agree with the findings, Merari Collins at 10:06 PM Thank you for letting us participate in the care of this patient. For questions regarding this report, please contact e number below. Paris Lagos MD IMG CT ORDERABLES (ABNORMAL) Hemogram (12/06/2019 4:20 PM EDT) Analysis Performed At Patho logist Time Signature WBC 10.4 (H) 4.0 - 9.5 [facility] LABORATORY RBC 4.32 (L) 4.58 - [facility] DOV 5.54 [facility] x10(6)/[facility] LABORATORY Hemoglobin 12.5 (L) 13.7 - [facility] 16.5 gm/dL [facility] LABORATORY Hematocrit 38.4 (L) 40.5 - [facility] 48.5 % [facility] LABORATORY MCV 88.9 82.9 - [facility] 93.1 [facility] LABORATORY MCH 28.9 27.5 - [facility] DOV 32.1 pg [facility] LABORATORY MCHC 32.6 32.0 - [facility] 35.7 gm/dL [facility] LABORATORY Platelets 194 145 - 357 [facility] x10(3)/[facility] LABORATORY RDWSD 46.9 (H) 36.0 - [facility] 45.0 [facility] LABORATORY RDWCV 14.6 (H) 11.4 - [facility] 13.8 % [facility] LABORATORY MPV 11.9 7.6 - 12.9 [facility] LABORATORY nRBC % Auto 0.0 % [facility] LABORATORY nRBC Abs Auto 0.000 0.000 - [facility] DOV 0.000 [facility] x10(3)/[facility] LABORATORY Specimen Anatomical Collection Method Collection Time Receive d Time (Source) Location / / Volume Laterality Blood specimen 12/06/2019 4:20 PM 020 4:31 (specimen) EDT PM EDT Resulting Agency Comment Spec In Lab Gretchen Yoon MD HEMATOLOGY ORDERABLES Performing Organization Address City/State/[place] [address] Heparin (unfractionated) Level (12/06/2019 4:20 PM EDT) P athologist Signature Heparin UFH 0.30 IU/mL [facility] LABORATORY Comment: Guidelines for therapeutic unfractionate d heparin levels are summarized below. Heparin (Anti-Xa) levels should be deter mined in a plasma sample that has been drawn 6 hours after a dose change i.e., steady-state has been reached. DRUG ?Dos ing Schedule ? Target Peak Steady-State ?Heparin (Anti-Xa) Levels (Units/mL) Unfractionated ?Continuous inf usion ?0.3-0.7 Heparin ?0.3-0.6 fo r some neurology indications Specimen Anatomical Collection Method Collection Time Receive d Time (Source) Location / / Volume Laterality Blood specimen 12/06/2019 4:20 PM 020 4:31 (specimen) EDT PM EDT Resulting Agency Comment Spec In Lab Paris Lagos MD HEMATOLOGY ORDERABLES Performing Organization Address City/State/[place] [address] Heparin (unfractionated) Level (12/06/2019 10:02 AM EDT) athologist Signature Heparin UFH <0.04 IU/mL [facility] LABORATORY Comment: Guidelines for therapeutic unfractionate d heparin levels are summarized below. Heparin (Anti-Xa) levels should be deter mined in a plasma sample that has been drawn 6 hours after a dose change i.e., steady-state has been reached. DRUG ?Dos ing Schedule ? Target Peak Steady-State ?Heparin (Anti-Xa) Levels (Units/mL) Unfractionated ?Continuous inf usion ?0.3-0.7 Heparin ?0.3-0.6 fo r some neurology indications Specimen Anatomical Collection Method Collection Time Receive d Time (Source) Location / / Volume Laterality Blood specimen 12/06/2019 10:02 0 (specimen) AM EDT 10:06 AM EDT Resulting Agency Comment Spec In Lab Paris Lagos MD HEMATOLOGY ORDERABLES Performing Organization Address City/[facility]/ZIP Code Phon e Number [address] Magnesium (12/06/2019 3:36 AM EDT) P athologist Signature Magnesium 0.86 0.69 - 1.07 [facility] mmol/L [facility] LABORATORY Specimen Anatomical Collection Method Collection Time Receive d Time (Source) Location / / Volume Laterality Blood specimen 12/06/2019 3:36 AM 020 3:45 (specimen) EDT AM EDT Resulting Agency Comment Spec In Lab Gretchen Yoon MD CHEMISTRY ORDERABLES Performing Organization Address City/[facility]/ZIP Code Phon e Number [address] (ABNORMAL) BMP w/fasting Glucose (12/06/2019 3:36 AM EDT) P athologist Signature Glucose 103 (H) 65 - 99 [facility] Fasting mg/dL [facility] LABORATORY Comment: ?Fasting* Glucose Interpretive C riteria Normal ?65-99 mg/dL Impaired Fasting glucose ?100-125 mg/dL Consistent with Diabetes Mellitus ? >or= 126 mg/dL *Fasting is defined as no caloric intake for at least 8 hours In the absence of unequivocal hypergly cemia a plasma glucose value of >or= 126 mg/dL should be repeated on a subseq uent day. Diagnosis and Classification of Diabetes Mellitus, Position Statement from the [place] [employer]. ??Diabete s Care, Volume 33, Supplement 1, Jul 2009 BUN 20 10 - 20 mg/dL [facility] LABORATORY Creatinine 0.88 0.80 - 1.50 mg/dL [facility] LABORATORY Sodium 136 135 - 145 mmol/L [facility] LABORATORY Potassium 4.0 3.5 - 5.0 mmol/L [facility] LABORATORY Comment: Please note: ??Patients with WBC >100,00 0 may have falsely elevated Potassium levels. ??For accurate Potassium quantif ication in these patients send serum separator tube (gold top) for subsequent determinations. ??Contact the Clinical Chemistry Laboratory if there are any qu estions. Chloride 103 98 - 107 mmol/L [facility] LABORATORY CO2 19 (L) 22 - 31 mmol/L [facility] LABORATORY Anion Gap 14 5 - 15 mmol/L [facility] LABORATORY Calcium 8.7 8.5 - 10.5 mg/dL [facility] LABORATORY Estimated GFR 85 >=60 mL/min/1.73 m?? [facility] LABORATORY Comment: The eGFR was calculated using the CKD-EP I equation. As with all creatinine based estimates of kidney function, eGFR values calculated with the CKD-EPI equation are not accurate in patients wi th acute kidney failure, extremes of body mass or the acutely ill. http://[employer]/MCnkf eGFR 99 >=60 mL/min/1.73 m?? [facility] LABORATORY Comment: The eGFR was calculated using the CKD-EP I equation. As with all creatinine based estimates of kidney function, eGFR values calculated with the CKD-EPI equation are not accurate in patients wi th acute kidney failure, extremes of body mass or the acutely ill. http://[employer]/DHMCnkf Specimen Anatomical Collection Method Collection Time Receive d Time (Source) Location / / Volume Laterality Blood specimen 12/06/2019 3:36 AM 020 3:45 (specimen) EDT AM EDT Resulting Agency Comment Spec In Lab Gretchen Yoon MD CHEMISTRY ORDERABLES Performing Organization Address City/State/ZIP Code Phon e Number [address] (ABNORMAL) Hemogram (12/06/2019 3:36 AM EDT) Analysis Performed At Patho logist Time Signature WBC 9.2 4.0 - 9.5 [facility] LABORATORY RBC 3.99 (L) 4.58 - [facility] DOV 5.54 [facility] x10(6)/[facility] LABORATORY Hemoglobin 11.9 (L) 13.7 - [facility] 16.5 gm/dL [facility] LABORATORY Hematocrit 35.5 (L) 40.5 - [facility] 48.5 % [facility] LABORATORY MCV 89.0 82.9 - [facility] 93.1 [facility] LABORATORY MCH 29.8 27.5 - [place] DOV 32.1 pg [facility] LABORATORY MCHC 33.5 32.0 - [place] DOV 35.7 gm/dL [facility] LABORATORY Platelets 164 145 - 357 [facility] x10(3)/[facility] LABORATORY RDWSD 47.6 (H) 36.0 - [place] DOV 45.0 [facility] LABORATORY RDWCV 14.7 (H) 11.4 - [facility] 13.8 % [facility] LABORATORY MPV 11.9 7.6 - 12.9 [facility] LABORATORY nRBC % Auto 0.0 % [facility] LABORATORY nRBC Abs Auto 0.000 0.000 - [facility] DOV 0.000 [facility] x10(3)/[facility] LABORATORY Specimen Anatomical Collection Method Collection Time Receive d Time (Source) Location / / Volume Laterality Blood specimen 12/06/2019 3:36 AM 020 3:45 (specimen) EDT AM EDT Resulting Agency Comment Spec In Lab Gretchen Yoon MD HEMATOLOGY ORDERABLES Performing Organization Address City/[facility]/ZIP Code Phon e Number [address] (ABNORMAL) Differential, Automated (12/05/2019 10:52 PM EDT) Patholo gist Method Time Signature Neutrophils % 61.9 % [facility] LABORATORY Neutr Abs (ANC) 6.02 1.70 - [facility] 6.10 [facility] x10(3)/[facility] LABORATORY Lymphocytes % 22.4 % [facility] LABORATORY Lymphocytes Abs 2.2 0.9 - 3.2 [facility] x10(3)/[facility] LABORATORY Monocytes % 10.4 % [facility] LABORATORY Monocyte Abs 1.0 (H) 0.3 - 0.9 [facility] x10(3)/[facility] LABORATORY Eosinophils % 4.1 % [facility] LABORATORY Eosinophils Abs 0.4 0.0 - 0.4 [facility] x10(3)/[facility] LABORATORY Basophils % 0.7 % [facility] LABORATORY Basophils Abs 0.1 0.0 - 0.1 [facility] x10(3)/[facility] LABORATORY Immature Gran % 0.50 % [facility] LABORATORY Comment: Immature granulocytes(IG's)percentage an d absolute count will include metamyelocytes, myelocytes, and promyelo cytes. Blood smears from CBCs yielding IG's will be scanned manually for concor dance. If this scan disagrees with the automated IG or if promyelocytes are not ed, a manual differential will be performed. Pita Gran Abs 0.05 (H) 0.00 - 0.04 x10(3)/[facility] LABORATORY Specimen Anatomical Collection Method Collection Time Receive d Time (Source) Location / / Volume Laterality Blood specimen 12/05/2019 10:52 0 (specimen) PM EDT 10:59 PM EDT Resulting Agency Comment Spec In Lab Mandi Barrera MD HEMATOLOGY ORDERABLES Performing Organization Address City/State/Z[place] [address] (ABNORMAL) Hemogram (12/05/2019 10:52 PM EDT) Analysis Performed At [facility] logist Time Signature WBC 9.7 (H) 4.0 - 9.5 [facility] x10(3)/[facility] LABORATORY RBC 4.07 (L) 4.58 - [place] D[facility] 5.54 [facility] x10(6)/[facility] LABORATORY Hemoglobin 11.9 (L) 13.7 - [place] 16.5 gm/dL [facility] LABORATORY Hematocrit 36.4 (L) 40.5 - [place] 48.5 % [facility] LABORATORY MCV 89.4 82.9 - [facility] 93.1 [facility] LABORATORY MCH 29.2 27.5 - [place] DOV 32.1 pg [facility] LABORATORY MCHC 32.7 32.0 - MELINA DOV 35.7 gm/dL [facility] LABORATORY Platelets 167 145 - 357 [facility] x10(3)/[facility] LABORATORY RDWSD 47.7 (H) 36.0 - [facility] LAB[facility] RDWCV 14.6 (H) 11.4 - [facility] 13.8 % [facility] LABORATORY MPV 12.1 7.6 - 12.9 [facility] LABORATORY nRBC % Auto 0.0 % [facility] LAB[facility]ATORY nRBC Abs Auto 0.000 0.000 - [facility] x10(3)/[facility] LABORATORY Specimen Anatomical Collection Method Collection Time Receive d Time (Source) Location / / Volume Laterality Blood specimen 12/05/2019 10:52 0 (specimen) PM EDT 10:59 PM EDT Resulting Agency Comment Spec In Lab Mandi Barrera MD HEMATOLOGY ORDERABLES Performing Organization Address City/State/[place] [address] Heparin (unfractionated) Level (12/05/2019 10:52 PM EDT) P athologist Signature Heparin UFH <0.04 IU/mL [facility] LABORATORY Comment: Guidelines for therapeutic unfractionate d heparin levels are summarized below. Heparin (Anti-Xa) levels should be deter mined in a plasma sample that has been drawn 6 hours after a dose change i.e., steady-state has been reached. DRUG ?Dos ing Schedule ? Target Peak Steady-State ?Heparin (Anti-Xa) Levels (Units/mL) Unfractionated ?Continuous inf usion ?0.3-0.7 Heparin ?0.3-0.6 fo r some neurology indications Specimen Anatomical Collection Method Collection Time Receive d Time (Source) Location / / Volume Laterality Blood specimen 12/05/2019 10:52 0 (specimen) PM EDT 10:59 PM EDT Resulting Agency Comment Spec In Lab Paris Lagos MD HEMATOLOGY ORDERABLES Performing Organization Address City/State/ZIP [place] [address] MRI Brain wwo Contrast (Generic) (12/05/2019 7:59 PM EDT) Anatomical Region Laterality Modality Head Magnetic Resonance Specimen (Source) Anatomical Location Collection Method / Collectio n Time Received Time / Laterality Volume Impressions 12/05/2019 10:02 PM EDT No significant interval change. Thank you for letting us participate in the care of this patient. For questions regarding this report, please contact e number below. ? Narrative 12/05/2019 10:02 PM EDT EXAMINATION: MRI BRAIN WWO CONTRAST (GENERIC) CLINICAL HISTORY: Intracranial hemorrhag e, follow up Pt with known ICH, reassess for stabilit y prior to starting anticoagulation for PE/AFib TECHNIQUE: MRI of the brain was performed before an d after the intravenous administration of cc Dotarem. COMPARISON: MRI brain and CT head 12/01/2019 FINDINGS: Considering the differences in technique , there is stable intraparenchymal hemorrhage just inferior to the left betzaida bus pallidus as seen on the recent MRI and CT scan. No new acute intracranial hemorrhage, ma ss, mass effect, hydrocephalus, midline shift, or acute infarction. The parenchy ma is normally formed and the subarachnoid spaces are normal. Minimal number of T2 bright white matter foci which are nonspecific but consistent wit h minimal age-appropriate chronic small vessel disease. Two chronic microbleeds are seen in the right anterior centrum semiovale. No marrow signal abnormality. The visualized soft tissues of the face and orbits are grossly normal. There is no abnormal enhancement. Procedure Note Merari Collins MD - 12/05/2019Formatting o f this note might be different from the original. EXAMINATION: MRI BRAIN WWO CONTRAST (GEN TITI) CLINICAL HISTORY: Intracranial hemorrhag e, follow up Pt with known ICH, reassess for stabilit y prior to starting anticoagulation for PE/AFib TECHNIQUE: MRI of the brain was performed before an d after the intravenous administration of cc Dotarem. COMPARISON: MRI brain and CT head 12/01/2019 FINDINGS: Considering the differences in technique , there is stable intraparenchymal hemorrhage just inferior to the left betzaida bus pallidus as seen on the recent MRI and CT scan. No new acute intracranial hemorrhage, ma ss, mass effect, hydrocephalus, midline shift, or acute infarction. The parenchy ma is normally formed and the subarachnoid spaces are normal. Minimal number of T2 bright white matter foci which are nonspecific but consistent wit h minimal age-appropriate chronic small vessel disease. Two chronic microbleeds are seen in the right anterior centrum semiovale. No marrow signal abnormality. The visualized soft tissues of the face and orbits are grossly normal. There is no abnormal enhancement. IMPRESSION No significant interval change. Thank you for letting us participate in the care of this patient. For questions regarding this report, please contact e number below. Electronically signed by: ALBA Jenkins [facility] ([phone]), at 12/05/2019 10:02 PM Paris Lagos MD IMG MRI ORDERABLES (ABNORMAL) Hemogram (12/05/2019 1:00 PM EDT) Analysis Performed At Patho logist Time Signature WBC 8.7 4.0 - 9.5 [facility] x10(3)/[facility] LABORATORY RBC 4.17 (L) 4.58 - [facility] 5.54 [facility] x10(6)/[facility] LABORATORY Hemoglobin 12.4 (L) 13.7 - [facility] 16.5 gm/dL [facility]ORY Hematocrit 37.0 (L) 40.5 - [facility] 48.5 % [facility] MCV 88.7 82.9 - [facility]1 [facility] LABORATORY MCH 29.7 27.5 - [facility] 32.1 pg [facility]ORY MCHC 33.5 32.0 - [facility] 35.7 gm/dL [facility]ORY Platelets 173 145 - 357 [facility] x10(3)/[facility] LABORATORY RDWSD 47.3 (H) 36.0 - [facility] 45.0 [facility] LABORATORY RDWCV 14.6 (H) 11.4 - [facility] 13.8 % [facility]ATORY MPV 12.1 7.6 - 12.9 [facility] LABORATORY nRBC % Auto 0.0 % [facility] LABORATORY nRBC Abs Auto 0.000 0.000 - [facility] 0.000 [facility] x10(3)/[facility] LABORATORY Specimen Anatomical Collection Method Collection Time Receive d Time (Source) Location / / Volume Laterality Blood specimen 12/05/2019 1:00 PM 020 1:13 (specimen) EDT PM EDT Resulting Agency Comment Spec In Lab Gretchen Yoon MD HEMATOLOGY ORDERABLES Performing Organization Address City/State/[place] [address] EKG 12 Lead (12/05/2019 10:52 AM EDT) Component Value Ref Range Test Analysis Performed Pathologis t Method Time At Signature Ventricular rate 72 BPM MUSE SYSTEM Atrial Rate 72 BPM MUSE SYSTEM P-R Interval 138 ms MUSE SYSTEM QRS Duration 96 ms MUSE SYSTEM Q-T Interval 396 ms MUSE SYSTEM QTC Calculated 433 ms MUSE SYSTEM (Bezet) Calculated P Jackson 65 degrees MUSE SYSTEM Calculated R Jackson 13 degrees MUSE SYSTEM Calculated T Jackson 0 degrees MUSE SYSTEM INTERPRETATION Sinus rhythm Occasional Premature ventricular complexe s MUSE SYSTEM Possible Inferior infarct (cited on or before 29-NOV-2019) Abnormal ECG When compared with ECG of 04-DEC-2019 10:43, Sinus rhythm has replaced Atrial fibrillation Vent. rate has decreased BY ??86 BPM Confirmed by MD Ceja Daniel ([id number]) on 12/05/2019 3:55:22 PM Specimen Anatomical Collection Method Collection Time Receive d Time (Source) Location / / Volume Laterality 12/05/2019 10:52 12/05/2019 3:55 AM EDT PM EDT Paris Lagos MD ECG ORDERABLES Performing Organization Address City/State/ZIP Code Phon e Number MUSE SYSTEM Duplex Study for DVT, Bilat legs (12/05/2019 7:00 AM EDT) Component Value Ref Test Analysis Performed At [facility] Range Method Time Signature VB Text Department: Vascular Surgery Lab VASCUBASE Report Patient: [id number] (ANGEL LUIS SALINAS) CPT: 75896 ICD10: I26.99 Referring Physician: GRETCHEN YOON ?? Phone: Indications: ??PE, ? lower extremity DVT ICD10 Diagnosis Code: I26.99 Findings: RIGHT: Patent common femoral vein and popliteal vein with sp ontaneous, respirophasic Doppler wavefo herlinda that respond normally to augmentation maneuvers. The common femoral vein, sap henofemoral junction, femoral vein through the thigh and popliteal vein are fully compressible. Patent posterior tibial and peroneal veins with no evidence of thrombus. LEFT: Patent common femoral vein and popliteal vein with spo ntaneous, respirophasic Doppler wavefo herlinda that respond normally to augmentation maneuvers. The common femoral vein, sap henofemoral junction, femoral vein through the thigh and popliteal vein are fully compressible. Patent posterior tibial and peroneal veins with no evidence of thrombus. Interpretation: RIGHT: ??No evidence of lower extremity deep venous thrombos is. LEFT: ??No evidence of lower extremity deep venous thrombosi s. Comparison: ?? No previous study in our vascular lab database for comparison. Electronically Signed by: SALOMON GOLDSTEIN MD on 2019-12-05 1 0:24:13 AM VB Text End of Report VASCUBASE Report Specimen (Source) Anatomical Collection Method Collection Time Re ceived Time Location / / Volume Laterality 12/05/2019 7:00 AM EDT Gretchen Yoon MD VASCULAR ORDERABLES Performing Organization Address City/State/ZIP Code Phon e Number VASCUBASE Magnesium (12/05/2019 4:18 AM EDT) P athologist Signature Magnesium 0.87 0.69 - 1.07 [facility] mmol/L [facility] LABORATORY Specimen Anatomical Collection Method Collection Time Receive d Time (Source) Location / / Volume Laterality Blood specimen 12/05/2019 4:18 AM 020 4:31 (specimen) EDT AM EDT Resulting Agency Comment Spec In Lab Gretchen Yoon MD CHEMISTRY ORDERABLES Performing Organization Address City/[facility]/[place] [facility] [address] (ABNORMAL) BMP w/fasting Glucose (12/05/2019 4:18 AM EDT) P athologist Signature Glucose 104 (H) 65 - 99 [facility] Fasting mg/dL [facility] LAB[facility]ATORY Comment: ?Fasting* Glucose Interpretive C riteria Normal ?65-99 mg/dL Impaired Fasting glucose ?100-125 mg/dL Consistent with Diabetes Mellitus ? >or= 126 mg/dL *Fasting is defined as no caloric intake for at least 8 hours In the absence of unequivocal hypergly cemia a plasma glucose value of >or= 126 mg/dL should be repeated on a subseq uent day. Diagnosis and Classification of Diabetes Mellitus, Position Statement from the [place] [employer]. ??Diabete s Care, Volume 33, Supplement 1, Jul 2009 BUN 21 (H) 10 - 20 mg/dL [facility] LABORATORY Creatinine 1.02 0.80 - 1.50 mg/dL [facility] LABORATORY Sodium 136 135 - 145 mmol/L [facility] Potassium 3.9 3.5 - 5.0 mmol/L [facility] Comment: Please note: ??Patients with WBC >100,00 0 may have falsely elevated Potassium levels. ??For accurate Potassium quantif ication in these patients send serum separator tube (gold top) for subsequent determinations. ??Contact the Clinical Chemistry Laboratory if there are any qu estions. Chloride 103 98 - 107 mmol/L [facility] LAB[facility] CO2 21 (L) 22 - 31 mmol/L [facility] Anion Gap 12 5 - 15 mmol/L [facility] Calcium 8.8 8.5 - 10.5 mg/dL [facility] Estimated GFR 73 >=60 mL/min/1.73 m?? [facility] LAB[facility] Comment: The eGFR was calculated using the CKD-EP I equation. As with all creatinine based estimates of kidney function, eGFR values calculated with the CKD-EPI equation are not accurate in patients wi th acute kidney failure, extremes of body mass or the acutely ill. [email or web address] eGFR 84 >=60 mL/min/1.73 m?? [facility] Comment: The eGFR was calculated using the CKD-EP I equation. As with all creatinine based estimates of kidney function, eGFR values calculated with the CKD-EPI equation are not accurate in patients wi th acute kidney failure, extremes of body mass or the acutely ill. [email or web address] Specimen Anatomical Collection Method Collection Time Receive d Time (Source) Location / / Volume Laterality Blood specimen 12/05/2019 4:18 AM 020 4:31 (specimen) EDT AM EDT Resulting Agency Comment Spec In Lab Gretchen Yoon MD CHEMISTRY ORDERABLES Performing Organization Address City/State/[place] [address] (ABNORMAL) Hemogram (12/05/2019 4:18 AM EDT) Analysis Performed At Patho logist Time Signature WBC 8.6 4.0 - 9.5 [facility] x10(3)/[facility] LABORATORY RBC 4.28 (L) 4.58 - [facility] 5.54 [facility] x10(6)/[facility] LABORATORY Hemoglobin 12.4 (L) 13.7 - [facility] 16.[facility] gm/dL [facility] LAB[facility]ATORY Hematocrit 37.3 (L) 40.5 - [facility] 48.5 % [facility] LAB[facility]ATORY MCV 87.1 82.9 - [facility] 93[facility]1 [facility] LABORATORY MCH 29.0 27.5 - [facility] 32.1 pg [facility] LABORATORY MCHC 33.2 32.0 - [facility] 35.7 gm/dL [facility] LABORATORY Platelets 163 145 - 357 [facility] x10(3)/[facility] LABORATORY RDWSD 46.4 (H) 36.0 - [facility] 45.0 [facility] LAB[facility]AT[facility] RDWCV 14.4 (H) 11.4 - [facility] 13.8 % [facility] LABORATORY MPV 11.7 7.6 - 12.9 [facility] LABORATORY nRBC % Auto 0.0 % [facility] LABORATORY nRBC Abs Auto 0.000 0.000 - [facility] 0.000 [facility] x10(3)/[facility] LABORATORY Specimen Anatomical Collection Method Collection Time Receive d Time (Source) Location / / Volume Laterality Blood specimen 12/05/2019 4:18 AM 020 4:31 (specimen) EDT AM EDT Resulting Agency Comment Spec In Lab Gretchen Yoon MD HEMATOLOGY ORDERABLES Performing Organization Address City/State/[place] [address] Cardiac for Morphology & Function (12/04/2019 1:56 PM EDT) Anatomical Region Laterality Modality Chest, Cardiac Computed Tomography Specimen (Source) Anatomical Location Collection Method / Collectio n Time Received Time / Laterality Volume Impressions 12/04/2019 6:16 PM EDT Watchman measurements as above. Findings indicate a patent foramen ovale . Bilateral segmental/subsegmental pulmona ry arterial emboli are incompletely visualized on this exam. Small bilateral pleural effusions. Findings called by Dr. Maciel atkins and discussed with Dr. Stevens at 12/04/2019 6:10 PM. I verified that he und erstood these results. I have personally reviewed the image(s) and the resident's interpretation and agree with the findings, Roselyn Luciano at 12/04/2019 6:16 PM Thank you for letting us participate in the care of this patient. For questions regarding this report, please contact [facility] number below. ? Narrative 12/04/2019 6:16 PM EDT EXAMINATION: CT CARDIAC FOR MORPHOLOGY & FUNCTION CLINICAL HISTORY: Pt with AFib and intra cranial hemorrhage, evaluation for possible left atrial appendage closure TECHNIQUE: After timing bolus, 0.6 mm ick axial contiguous sections were obtained through the heart via ECG-gated helical acquisition during intravenous administration of 84 cc Omnipaque 350. P ost-processing was performed on an independent computer workstation includi ng three-dimensional and multiplanar curved reconstructions. FINDINGS: Left atrial appendage: Diameters at the neck/greatest diameters : 26 mm x 31 mm Length to tip: 57 mm Orthogonal length from neck/greatest puja meter to back wall: SURINAMESE 91, CAU 13: ??19 mm CORTES ??1, CAU 11: ??19 mm Orientation: The left atrial appendage e xtends directed cranially from the anterior aspect of the left atrium (sagi ttal reconstructions series 9, image 86), makes then a 90 degrees turn anteri sera followed by 150 degrees turn posteriorly to the right (series 5, imag e 24). Morphology: Windsock configuration. Accessory appendage or diverticulum: Sma ll broad-based diverticulum at the cranial anterior aspect of the left atri um, cranial to the interatrial septum. Left atrial or atrial appendage filling defects: None. Accessory pulmonary venous drainage: Non e. Anomalous pulmonary venous drainage: Non e. Other cardiovascular structures: Thin co ntrast enhanced channel through the interatrial septum indicates a patent fo ramen ovale (series 6, image 345). RCA stenting. Pulmonary parenchyma, airways, pleura: I ncompletely included. Limited portions of the lungs included on this exam show centrilobular emphysema. Small bilateral pleural effusions with associated atelec tasis. Bilateral pulmonary arterial emboli are incompletely visualized in th e lower lobes (series 9, image 143 on the right and image 41 on the left). Upper abdomen: No significant findings. Skeletal structures: No significant find ings. Procedure Note Roselyn Saalzar MD - 2019 EXAMINATION: CT CARDIAC FOR MORPHOLOGY & FUNCTION CLINICAL HISTORY: Pt with AFib and intra cranial hemorrhage, evaluation for possible left atrial appendage closure TECHNIQUE: After timing bolus, 0.6 mm th ick axial contiguous sections were obtained through the heart via ECG-gated helical acquisition during intravenous administration of 84 cc Omnipaque 350. P ost-processing was performed on an independent computer workstation includi ng three-dimensional and multiplanar curved reconstructions. FINDINGS: Left atrial appendage: Diameters at the neck/greatest diameters : 26 mm x 31 mm Length to tip: 57 mm Orthogonal length from neck/greatest puja meter to back wall: SURINAMESE 91, CAU 13: 19 mm CORTES 1, CAU 11: 19 mm Orientation: The left atrial appendage e xtends directed cranially from the anterior aspect of the left atrium (sagi ttal reconstructions series 9, image 86), makes then a 90 degrees turn anteri sera followed by 150 degrees turn posteriorly to the right (series 5, imag e 24). Morphology: Windsock configuration. Accessory appendage or diverticulum: Sma ll broad-based diverticulum at the cranial anterior aspect of the left atri um, cranial to the interatrial septum. Left atrial or atrial appendage filling defects: None. Accessory pulmonary venous drainage: Non e. Anomalous pulmonary venous drainage: Non e. Other cardiovascular structures: Thin co ntrast enhanced channel through the interatrial septum indicates a patent fo ramen ovale (series 6, image 345). RCA stenting. Pulmonary parenchyma, airways, pleura: I ncompletely included. Limited portions of the lungs included on this exam show centrilobular emphysema. Small bilateral pleural effusions with associated atelec tasis. Bilateral pulmonary arterial emboli are incompletely visualized in th e lower lobes (series 9, image 143 on the right and image 41 on the left). Upper abdomen: No significant findings. Skeletal structures: No significant find ings. IMPRESSION Watchman measurements as above. Findings indicate a patent foramen ovale . Bilateral segmental/subsegmental pulmona ry arterial emboli are incompletely visualized on this exam. Small bilateral pleural effusions. Findings called by Dr. Maciel atkins and discussed with Dr. Stevens at 12/04/2019 6:10 PM. I verified that he und erstood these results. I have personally reviewed the image(s) and the resident's interpretation and agree with the findings, Roselyn Luciano at 12/04/2019 6:16 PM Thank you for letting us participate in the care of this patient. For questions regarding this report, please contact e number below. Gretchen Yoon MD IMG CT ORDERABLES (ABNORMAL) Hemogram (12/04/2019 12:55 PM EDT) Analysis Performed At Patho logist Time Signature WBC 8.9 4.0 - 9.5 [facility] x10(3)/[facility] LABORATORY RBC 4.69 4.58 - [facility] 5.54 [facility] x10(6)/[facility] LABORATORY Hemoglobin 13.5 (L) 13.7 - [facility] 16.5 gm/dL [facility] LABORATORY Hematocrit 41.7 40.5 - [facility] 48.5 % [facility] LABORATORY MCV 88.9 82.9 - [facility] 93.1 fL [facility] LABORATORY MCH 28.8 27.5 - [facility] 32.1 pg [facility] LABORATORY MCHC 32.4 32.0 - [facility] 35.7 gm/dL [facility] LABORATORY Platelets 196 145 - 357 [facility] x10(3)/[facility] LABORATORY RDWSD 46.7 (H) 36.0 - [facility] MON[facility] 45.0 [facility] LABORATORY RDWCV 14.5 (H) 11.4 - [facility] 13.8 % [facility] LABORATORY MPV 12.1 7.6 - 12.9 [facility] LABORATORY nRBC % Auto 0.0 % [facility] LABORATORY nRBC Abs Auto 0.000 0.000 - [facility] 0.000 [facility] x10(3)/[facility] LABORATORY Specimen Anatomical Collection Method Collection Time Receive d Time (Source) Location / / Volume Laterality Blood specimen 12/04/2019 12:55 0 1:06 (specimen) PM EDT PM EDT Resulting Agency Comment Spec In Lab Gretchen Yoon MD HEMATOLOGY ORDERABLES Performing Organization Address City/[facility]/ZIP Code [place] [address] EKG 12 Lead (12/04/2019 10:43 AM EDT) Component Value Ref Range Test Analysis Performed Pathologis t Method Time At Signature Ventricular rate 158 BPM MUSE SYSTEM Atrial Rate 102 BPM MUSE SYSTEM QRS Duration 92 ms MUSE SYSTEM Q-T Interval 294 ms MUSE SYSTEM QTC Calculated 476 ms MUSE SYSTEM (Bezet) Calculated R Jackson 17 degrees MUSE SYSTEM Calculated T Jackson 90 degrees MUSE SYSTEM INTERPRETATION Atrial fibrillation with rapid ventricular response MUSE SYSTEM Possible Inferior infarct (cited on or before 29-NOV-2019) Abnormal ECG When compared with ECG of 30-NOV-2019 21:07, Atrial fibrillation has replaced Sinus rhythm Vent. rate has increased BY ??65 BPM Confirmed by MD Brenna, Faustino ([id number]) on 12/05/2019 8:59:44 AM Specimen Anatomical Collection Method Collection Time Receive d Time (Source) Location / / Volume Laterality 12/04/2019 10:43 12/05/2019 8:59 AM EDT AM EDT Gretchen Yoon MD ECG ORDERABLES Performing Organization Address City/State/ZIP Code Phon e Number MUSE SYSTEM (ABNORMAL) Magnesium (12/04/2019 4:28 AM EDT) P athologist Signature Magnesium 1.17 (H) 0.69 - 1.07 [facility] mmol/L [facility] LAB[facility]ORY Specimen Anatomical Collection Method Collection Time Receive d Time (Source) Location / / Volume Laterality Blood specimen 12/04/2019 4:28 AM 020 4:40 (specimen) EDT AM EDT Resulting Agency Comment Spec In Lab Gretchen Yoon MD CHEMISTRY ORDERABLES Performing Organization Address City/State/Z[place] [address] (ABNORMAL) BMP w/fasting Glucose (12/04/2019 4:28 AM EDT) athologist Signature Glucose 108 (H) 65 - 99 [facility] Fasting mg/dL [facility] LAB[facility] Comment: ?Fasting* Glucose Interpretive C riteria Normal ?65-99 mg/dL Impaired Fasting glucose ?100-125 mg/dL Consistent with Diabetes Mellitus ? >or= 126 mg/dL *Fasting is defined as no caloric intake for at least 8 hours In the absence of unequivocal hypergly cemia a plasma glucose value of >or= 126 mg/dL should be repeated on a subseq uent day. Diagnosis and Classification of Diabetes Mellitus, Position Statement from the [place] [employer]. ??Diabete s Care, Volume 33, Supplement 1, Jul 2009 BUN 19 10 - 20 mg/dL [facility] Creatinine 0.89 0.80 - 1.50 mg/dL [facility] Sodium 135 135 - 145 mmol/L [facility] Potassium 4.2 3.5 - 5.0 mmol/L [facility] Comment: Please note: ??Patients with WBC >100,00 0 may have falsely elevated Potassium levels. ??For accurate Potassium quantif ication in these patients send serum separator tube (gold top) for subsequent determinations. ??Contact the Clinical Chemistry Laboratory if there are any qu estions. Chloride 104 98 - 107 mmol/L [facility] CO2 19 (L) 22 - 31 mmol/L [facility] Anion Gap 12 5 - 15 mmol/L [facility] Calcium 8.5 8.5 - 10.5 mg/dL [facility] Estimated GFR 85 >=60 mL/min/1.73 m?? [facility] Comment: The eGFR was calculated using the CKD-EP I equation. As with all creatinine based estimates of kidney function, eGFR values calculated with the CKD-EPI equation are not accurate in patients wi th acute kidney failure, extremes of body mass or the acutely ill. http://[employer]/[facility] eGFR 98 >=60 mL/min/1.73 m?? [facility] Comment: The eGFR was calculated using the CKD-EP I equation. As with all creatinine based estimates of kidney function, eGFR values calculated with the CKD-EPI equation are not accurate in patients wi th acute kidney failure, extremes of body mass or the acutely ill. http://[employer]/[facility] Specimen Anatomical Collection Method Collection Time Receive d Time (Source) Location / / Volume Laterality Blood specimen 12/04/2019 4:28 AM 020 4:40 (specimen) EDT AM EDT Resulting Agency Comment Spec In Lab Gretchen Yoon MD CHEMISTRY ORDERABLES Performing Organization Address City/State/[place] [address] (ABNORMAL) Hemogram (12/04/2019 4:28 AM EDT) Analysis Performed At Patho logist Time Signature WBC 7.8 4.0 - 9.5 [facility] x10(3)/[facility] LABORATORY RBC 4.10 (L) 4.58 - [facility] 5.54 [facility] x10(6)/[facility] LABORATORY Hemoglobin 12.0 (L) 13.7 - [facility] 16.5 gm/dL [facility] Hematocrit 36.5 (L) 40.5 - [facility] 48.5 % [facility] MCV 89.0 82.9 - [facility] fL [facility] MCH 29.3 27.5 - MELINA MONAE 32.1 pg [facility] MCHC 32.9 32.0 - MELINA MONAE 35.7 gm/dL [facility] Platelets 151 145 - 357 MELINA VILLANUEVACK x10(3)/[facility] LABORATORY RDWSD 46.9 (H) 36.0 - MELINA MONAE 45.0 [facility] LABORATORY RDWCV 14.4 (H) 11.4 - MELINA MONAE 13.8 % [facility]ORY MPV 12.2 7.6 - 12.9 MELINA MONAE fL [facility]ORY nRBC % Auto 0.0 % [facility] nRBC Abs Auto 0.000 0.000 - MELINA MONAE 0.000 [facility] x10(3)/[facility] LABORATORY Specimen Anatomical Collection Method Collection Time Receive d Time (Source) Location / / Volume Laterality Blood specimen 12/04/2019 4:28 AM 020 4:40 (specimen) EDT AM EDT Resulting Agency Comment Spec In Lab Gretchen Yoon MD HEMATOLOGY ORDERABLES Performing Organization Address City/[facility]/ZIP Code Phon e Number [address] Potassium (12/03/2019 7:55 PM EDT) athologist Signature Potassium 3.9 3.5 - 5.0 [facility] mmol/L [facility] Comment: Please note: ??Patients with WBC >100,00 0 may have falsely elevated Potassium levels. ??For accurate Potassium quantif ication in these patients send serum separator tube (gold top) for subsequent determinations. ??Contact the Clinical Chemistry Laboratory if there are any qu estions. Specimen Anatomical Collection Method Collection Time Receive d Time (Source) Location / / Volume Laterality Blood specimen 12/03/2019 7:55 PM 020 8:04 (specimen) EDT PM EDT Resulting Agency Comment Spec In Lab Gretchen Yoon MD CHEMISTRY ORDERABLES Performing Organization Address City/[facility]/[place] [facility] [place] [address] Potassium (12/03/2019 1:57 PM EDT) athologist Signature Potassium 3.7 3.5 - 5.0 [facility] mmol/L [facility] Comment: Please note: ??Patients with WBC >100,00 0 may have falsely elevated Potassium levels. ??For accurate Potassium quantif ication in these patients send serum separator tube (gold top) for subsequent determinations. ??Contact the Clinical Chemistry Laboratory if there are any qu estions. Specimen Anatomical Collection Method Collection Time Receive d Time (Source) Location / / Volume Laterality Blood specimen 12/03/2019 1:57 PM 020 2:21 (specimen) EDT PM EDT Resulting Agency Comment Spec In Lab Gretchen Yoon MD CHEMISTRY ORDERABLES Performing Organization Address City/State/[place] [address] (ABNORMAL) Hemogram (12/03/2019 1:57 PM EDT) Analysis Performed At Patho logist Time Signature WBC 8.8 4.0 - 9.5 MELINA DOV x10(3)/[facility] LABORATORY RBC 4.27 (L) 4.58 - MELINA DOV 5.54 [facility] x10(6)/[facility] LABORATORY Hemoglobin 12.5 (L) 13.7 - MELINA DOV 16.5 gm/dL [facility] Hematocrit 37.5 (L) 40.5 - MELINA DOV 48.5 % [facility] MCV 87.8 82.9 - MELINA DOV 93.1 [facility] LABORATORY MCH 29.3 27.5 - MELINA DOV 32.1 pg [facility] MCHC 33.3 32.0 - EMLINA DOV 35.7 gm/dL [facility]ORY Platelets 158 145 - 357 MELINA DOV x10(3)/[facility] LABORATORY RDWSD 46.9 (H) 36.0 - MELINA DOV 45.0 [facility] LABORATORY RDWCV 14.5 (H) 11.4 - MELINA DOV 13.8 % [facility] LABORATORY MPV 12.2 7.6 - 12.9 MELINA DOV [facility] LABORATORY nRBC % Auto 0.0 % [facility] nRBC Abs Auto 0.000 0.000 - [facility] 0.000 [facility] x10(3)/[facility] LABORATORY Specimen Anatomical Collection Method Collection Time Receive d Time (Source) Location / / Volume Laterality Blood specimen 12/03/2019 1:57 PM 020 2:21 (specimen) EDT PM EDT Resulting Agency Comment Spec In Lab Gretchen Yoon MD HEMATOLOGY ORDERABLES Performing Organization Address City/State/ZIP Code Phon e Number [address] Magnesium (12/03/2019 4:02 AM EDT) P athologist Signature Magnesium 0.79 0.69 - 1.07 [facility] mmol/L [facility]ORY Specimen Anatomical Collection Method Collection Time Receive d Time (Source) Location / / Volume Laterality Blood specimen 12/03/2019 4:02 AM 020 4:16 (specimen) EDT AM EDT Resulting Agency Comment Spec In Lab Gretchen Yoon MD CHEMISTRY ORDERABLES Performing Organization Address City/State/ZIP Code [place] [address] (ABNORMAL) BMP w/fasting Glucose (12/03/2019 4:02 AM EDT) P athologist Signature Glucose 100 (H) 65 - 99 [facility] Fasting mg/dL [facility] Comment: ?Fasting* Glucose Interpretive C riteria Normal ?65-99 mg/dL Impaired Fasting glucose ?100-125 mg/dL Consistent with Diabetes Mellitus ? >or= 126 mg/dL *Fasting is defined as no caloric intake for at least 8 hours In the absence of unequivocal hypergly cemia a plasma glucose value of >or= 126 mg/dL should be repeated on a subseq uent day. Diagnosis and Classification of Diabetes Mellitus, Position Statement from the [place] [employer]. ??Diabete s Care, Volume 33, Supplement 1, Jul 2009 BUN 17 10 - 20 mg/dL [facility] Creatinine 0.95 0.80 - 1.50 mg/dL [facility] Sodium 136 135 - 145 mmol/L [facility] Potassium 3.4 (L) 3.5 - 5.0 mmol/L [facility] Comment: Please note: ??Patients with WBC >100,00 0 may have falsely elevated Potassium levels. ??For accurate Potassium quantif ication in these patients send serum separator tube (gold top) for subsequent determinations. ??Contact the Clinical Chemistry Laboratory if there are any qu estions. Chloride 103 98 - 107 mmol/L [facility] CO2 18 (L) 22 - 31 mmol/L [facility] Anion Gap 15 5 - 15 mmol/L [facility] Calcium 8.3 (L) 8.5 - 10.5 mg/dL [facility] Estimated GFR 79 >=60 mL/min/1.73 m?? [facility] Comment: The eGFR was calculated using the CKD-EP I equation. As with all creatinine based estimates of kidney function, eGFR values calculated with the CKD-EPI equation are not accurate in patients wi th acute kidney failure, extremes of body mass or the acutely ill. http://[employer]/[facility] eGFR 92 >=60 mL/min/1.73 m?? [facility] Comment: The eGFR was calculated using the CKD-EP I equation. As with all creatinine based estimates of kidney function, eGFR values calculated with the CKD-EPI equation are not accurate in patients wi th acute kidney failure, extremes of body mass or the acutely ill. [email or web address] Specimen Anatomical Collection Method Collection Time Receive d Time (Source) Location / / Volume Laterality Blood specimen 12/03/2019 4:02 AM 020 4:16 (specimen) EDT AM EDT Resulting Agency Comment Spec In Lab Gretchen Yoon MD CHEMISTRY ORDERABLES Performing Organization Address City/State/[place] [address] (ABNORMAL) Hemogram (12/03/2019 4:02 AM EDT) Analysis Performed At Patho logist Time Signature WBC 9.1 4.0 - 9.5 [facility] x10(3)/[facility] LABORATORY RBC 4.01 (L) 4.58 - MELINA MARSHDOV 5.54 [facility] x10(6)/[facility] LABORATORY Hemoglobin 11.8 (L) 13.7 - [facility] 16[facility] g[facility]/dL [facility] Hematocrit 35.6 (L) 40.5 - [facility] 48.5 % [facility] MCV 88.8 82.9 - [facility] 93.1 [facility] LAB[facility]ATORY MCH 29.4 27.5 - [facility] 32.1 pg [facility] MCHC 33.1 32.0 - [facility] 35.[facility] gm/dL [facility] Platelets 130 (L) 145 - 357 [facility] x10(3)/[facility] LABORATORY RDWSD 46.6 (H) 36.0 - [facility] 45.0 [facility]ATORY RDWCV 14.4 (H) 11.4 - [facility] 13.8 % [facility]ORY MPV 12.4 7.6 - 12.9 [facility] LABORATORY nRBC % Auto 0.0 % [facility] nRBC Abs Auto 0.000 0.000 - [facility] 0.000 [facility] x10(3)/[facility] LABORATORY Specimen Anatomical Collection Method Collection Time Receive d Time (Source) Location / / Volume Laterality Blood specimen 12/03/2019 4:02 AM 020 4:16 (specimen) EDT AM EDT Resulting Agency Comment Spec In Lab Gretchen Yoon MD HEMATOLOGY ORDERABLES Performing Organization Address City/State/[place] [address] XR Chest One View (12/02/2019 1:00 PM EDT) Anatomical Region Laterality Modality Chest N/A Digital Radiography Specimen (Source) Anatomical Location Collection Method / Collectio n Time Received Time / Laterality Volume Impressions 12/02/2019 1:35 PM EDT Slightly increased small bibasilar pleural effusions and atelectasis. Thank you for letting us participate in the care of this patient. For questions regarding this report, please contact e number below. ? Narrative 12/02/2019 1:35 PM EDT EXAMINATION: XR CHEST ONE VIEW CLINICAL HISTORY: Pt with inferior STEMI and suspected aspiration, assess volume status and for evidence of PNA TECHNIQUE: Portable AP chest radiograph on ??12/02/2019 at 1256 hours. COMPARISON: 11/30/2019. FINDINGS: PA catheter removed but IJ int roducer still present. No pneumothorax seen. Unchanged cardiomediastinal silhou ette. Pulmonary vessel markings within normal limits. A small bibasilar pleural effusions and bibasilar atelectasis appears slightly increased, with intrafi ssural extension of fluid on the right. Procedure Note Ashly Marley MD - 12/02/2019Formatt ing of this note might be different from the original. EXAMINATION: XR CHEST ONE VIEW CLINICAL HISTORY: Pt with inferior STEMI and suspected aspiration, assess volume status and for evidence of PNA TECHNIQUE: Portable AP chest radiograph on 12/02/2019 at 1256 hours. COMPARISON: 11/30/2019. FINDINGS: PA catheter removed but IJ int roducer still present. No pneumothorax seen. Unchanged cardiomediastinal silhou ette. Pulmonary vessel markings within normal limits. A small bibasilar pleural effusions and bibasilar atelectasis appears slightly increased, with intrafi ssural extension of fluid on the right. IMPRESSION Slightly increased small bibasilar pleur al effusions and atelectasis. Thank you for letting us participate in the care of this patient. For questions regarding this report, please contact e number below. Gretchen Yoon MD IMG DX ORDERABLES (ABNORMAL) Hemogram (12/02/2019 12:50 PM EDT) Analysis Performed At Patho logist Time Signature WBC 10.6 (H) 4.0 - 9.5 [facility] LABORATORY RBC 4.00 (L) 4.58 - [facility] DOV 5.54 [facility] x10(6)/[facility] LABORATORY Hemoglobin 11.9 (L) 13.7 - [facility] 16.5 gm/dL [facility]ORY Hematocrit 35.7 (L) 40.5 - [facility] 48.5 % [facility]ORY MCV 89.3 82.9 - [facility] 93[facility]1 [facility] LAB[facility]ATORY MCH 29.8 27.5 - [facility] 32.1 pg [facility] LAB[facility]ATORY MCHC 33.3 32.0 - [facility] 35.[facility] gm/dL [facility]ORY Platelets 120 (L) 145 - 357 [facility] x10(3)/[facility] LABORATORY RDWSD 47.5 (H) 36.0 - [facility] 45.0 [facility]ORY RDWCV 14.6 (H) 11.4 - [facility] 13.8 % [facility] LAB[facility]ATORY MPV 12.0 7.6 - 12.9 [facility] LABORATORY nRBC % Auto 0.0 % [facility] nRBC Abs Auto 0.000 0.000 - [facility] 0.000 [facility] x10(3)/[facility] LABORATORY Specimen Anatomical Collection Method Collection Time Receive d Time (Source) Location / / Volume Laterality Blood specimen 12/02/2019 12:50 0 1:22 (specimen) PM EDT PM EDT Resulting Agency Comment Spec In Lab Gretchen Yoon MD HEMATOLOGY ORDERABLES Performing Organization Address City/State/[place] [address] Blue Tube HOLD (12/02/2019 4:55 AM EDT) P athologist Signature Blue Hold Sample in [facility] lab. [facility]ORY Specimen Anatomical Collection Method Collection Time Receive d Time (Source) Location / / Volume Laterality Blood specimen Venous Draw / 12/02/2019 4:55 AM 2019 5:03 (specimen) Unknown EDT AM EDT Darrell Glasgow MD HEMATOLOGY ORDERABLES Performing Organization Address City/State/ZIP Code Phon e Number [address] Magnesium (12/02/2019 4:55 AM EDT) athologist Signature Magnesium 0.85 0.69 - 1.07 [facility] mmol/L [facility]ORY Specimen Anatomical Collection Method Collection Time Receive d Time (Source) Location / / Volume Laterality Blood specimen 12/02/2019 4:55 AM 020 5:02 (specimen) EDT AM EDT Resulting Agency Comment Spec In Lab Gretchen Yoon MD CHEMISTRY ORDERABLES Performing Organization Address City/State/ZIP Code [place] [address] (ABNORMAL) BMP w/fasting Glucose (12/02/2019 4:55 AM EDT) athologist Signature Glucose 114 (H) 65 - 99 [facility] Fasting mg/dL [facility] Comment: ?Fasting* Glucose Interpretive C riteria Normal ?65-99 mg/dL Impaired Fasting glucose ?100-125 mg/dL Consistent with Diabetes Mellitus ? >or= 126 mg/dL *Fasting is defined as no caloric intake for at least 8 hours In the absence of unequivocal hypergly cemia a plasma glucose value of >or= 126 mg/dL should be repeated on a subseq uent day. Diagnosis and Classification of Diabetes Mellitus, Position Statement from the [place] [employer]. ??Diabete s Care, Volume 33, Supplement 1, Jul 2009 BUN 13 10 - 20 mg/dL [facility] Creatinine 0.93 0.80 - 1.50 mg/dL [facility] Sodium 135 135 - 145 mmol/L [facility] Potassium 3.7 3.5 - 5.0 mmol/L [facility] Comment: Please note: ??Patients with WBC >100,00 0 may have falsely elevated Potassium levels. ??For accurate Potassium quantif ication in these patients send serum separator tube (gold top) for subsequent determinations. ??Contact the Clinical Chemistry Laboratory if there are any qu estions. Chloride 105 98 - 107 mmol/L [facility] CO2 18 (L) 22 - 31 mmol/L [facility] Anion Gap 12 5 - 15 mmol/L [facility] Calcium 8.1 (L) 8.5 - 10.5 mg/dL [facility] Estimated GFR 81 >=60 mL/min/1.73 m?? [facility] Comment: The eGFR was calculated using the CKD-EP I equation. As with all creatinine based estimates of kidney function, eGFR values calculated with the CKD-EPI equation are not accurate in patients wi th acute kidney failure, extremes of body mass or the acutely ill. http://[employer]/[facility] eGFR 94 >=60 mL/min/1.73 m?? [facility] Comment: The eGFR was calculated using the CKD-EP I equation. As with all creatinine based estimates of kidney function, eGFR values calculated with the CKD-EPI equation are not accurate in patients wi th acute kidney failure, extremes of body mass or the acutely ill. [email or web address] Specimen Anatomical Collection Method Collection Time Receive d Time (Source) Location / / Volume Laterality Blood specimen 12/02/2019 4:55 AM 020 5:02 (specimen) EDT AM EDT Resulting Agency Comment Spec In Lab Gretchen Yoon MD CHEMISTRY ORDERABLES Performing Organization Address City/State/[place] [address] (ABNORMAL) Hemogram (12/02/2019 4:55 AM EDT) Analysis Performed At Patho logist Time Signature WBC 9.3 4.0 - 9.5 [facility] LABORATORY RBC 3.71 (L) 4.58 - MELINA DOV 5.54 [facility] x10(6)/[facility] LABORATORY Hemoglobin 10.8 (L) 13.7 - [facility] 16.5 gm/dL [facility] Hematocrit 33.1 (L) 40.5 - [facility] 48.5 % [facility] LAB[facility]ATORY MCV 89.2 82.9 - [facility] 93.1 [facility] LABORATORY MCH 29.1 27.5 - [facility] 32.1 pg [facility]ATORY MCHC 32.6 32.0 - [facility] 35.7 gm/dL [facility]ORY Platelets 93 (L) 145 - 357 [facility] x10(3)/[facility] LABORATORY RDWSD 47.1 (H) 36.0 - [facility] 45.0 [facility] LABORATORY RDWCV 14.6 (H) 11.4 - [facility] 13.8 % [facility] LABORATORY MPV 11.7 7.6 - 12.9 [facility] LABORATORY nRBC % Auto 0.0 % [facility] nRBC Abs Auto 0.000 0.000 - [facility] x10(3)/[facility] LABORATORY Specimen Anatomical Collection Method Collection Time Receive d Time (Source) Location / / Volume Laterality Blood specimen 12/02/2019 4:55 AM 020 5:02 (specimen) EDT AM EDT Resulting Agency Comment Spec In Lab Gretchen Yoon MD HEMATOLOGY ORDERABLES Performing Organization Address City/State/[place] [address] Transfuse 1 unit platelets, apheresis (12/01/2019 10:15 PM EDT) Gretchen Yoon MD NURSING TREATMENT ORDERABLES - BLOOD ADMIN Transfuse 1 unit platelets, apheresis (12/01/2019 10:15 PM EDT) Gretchen Yoon MD NURSING TREATMENT ORDERABLES - BLOOD ADMIN MRI Brain wo Contrast (12/01/2019 7:25 PM EDT) Anatomical Region Laterality Modality Head Magnetic Resonance Specimen (Source) Anatomical Location Collection Method / Collectio n Time Received Time / Laterality Volume Impressions 12/01/2019 8:02 PM EDT 1. ??Area of abnormal susceptibility corresponding to known hemorrhage on CT examination in the left mesial temporal lobe/inferior basal ganglia. 2. ??Single additional punctate focus of hemoglobin degradation products seen in the right periventricular white matter a nteriorly. 3. ??Single punctate focus of restricted diffusion in the right occipital lobe consistent with a small acute infarct, l ikely embolic Thank you for letting us participate in the care of this patient. For questions regarding this report, please contact [facility] number below. ? Electronically signed by: Angel Luis Barboza MD, [facility] ([phone]), at 12/01/2019 8:02 PM Narrative 12/01/2019 8:02 PM EDT EXAMINATION: MRI BRAIN WO CONTRAST CLINICAL HISTORY: Intracranial hemorrhag e, follow up ? hemorrhage after STEMI and PCI. Please include DWI/ADC/SWI TECHNIQUE: MRI of the brain performed without intra venous contrast administration. COMPARISON: Head CT dated 12/01/2019 FINDINGS: Subtle focus of restricted diffusion pro jecting in the right occipital lobe consistent with acute infarct image 41 s eries 2. There is a focus of signal dropout on th e susceptibility sequence in the right frontal lobe periventricular white matte r system with hemoglobin degradation products, image 62 series 8. There is signal dropout corresponding to the area of known hemorrhage in the left inferior basal ganglia/mesial tempo ral lobe. There is T2 hyperintensity in the area of hemorrhage and immediately a djacent consistent with small amount of vasogenic edema. Very mild local mass ef fect present. There are multiple small foci of T2 hype rintensity in the supratentorial white matter without restricted diffusion. No cortical infarctions or generalized m ass effect. No ventriculomegaly. Skull base soft tissues and orbits are u nremarkable. There is mucosal thickening in the right maxillary antrum. Midline structures and central flow void s are unremarkable. Procedure Note Angel Luis Lo MD - 12/01/2019Formatt ing of this note might be different from the original. EXAMINATION: MRI BRAIN WO CONTRAST CLINICAL HISTORY: Intracranial hemorrhag e, follow up ? hemorrhage after STEMI and PCI. Please include DWI/ADC/SWI TECHNIQUE: MRI of the brain performed without intra venous contrast administration. COMPARISON: Head CT dated 12/01/2019 FINDINGS: Subtle focus of restricted diffusion pro jecting in the right occipital lobe consistent with acute infarct image 41 s eries 2. There is a focus of signal dropout on e susceptibility sequence in the right frontal lobe periventricular white matte r system with hemoglobin degradation products, image 62 series 8. There is signal dropout corresponding to the area of known hemorrhage in the left inferior basal ganglia/mesial tempo ral lobe. There is T2 hyperintensity in the area of hemorrhage and immediately a djacent consistent with small amount of vasogenic edema. Very mild local mass ef fect present. There are multiple small foci of T2 hype rintensity in the supratentorial white matter without restricted diffusion. No cortical infarctions or generalized m ass effect. No ventriculomegaly. Skull base soft tissues and orbits are u nremarkable. There is mucosal thickening in the right maxillary antrum. Midline structures and central flow void s are unremarkable. IMPRESSION 1. Area of abnormal susceptibility corre sponding to known hemorrhage on CT examination in the left mesial temporal lobe/inferior basal ganglia. 2. Single additional punctate focus of h emoglobin degradation products seen in the right periventricular white matter a nteriorly. 3. Single punctate focus of restricted d iffusion in the right occipital lobe consistent with a small acute infarct, l ikely embolic Thank you for letting us participate in the care of this patient. For questions regarding this report, please contact [facility] number below. Electronically signed by: Angel Luis Barboza MD, [facility] ([phone]), at 12/01/2019 8:02 PM Gretchen Yoon MD IMG MRI ORDERABLES Prepare Platelets, Apheresis (12/01/2019 6:20 PM EDT) P athologist Signature Dispensed? Yes [facility] Specimen Anatomical Collection Method Collection Time Receive d Time (Source) Location / / Volume Laterality Blood specimen 12/01/2019 6:20 PM 020 6:18 (specimen) EDT PM EDT Gretchen Yoon MD BLOOD BANK ORDERABLES Performing Organization Address City/[facility]/[place]IP [place] [address] Duplex for DVT, Arm, Unilat (12/01/2019 5:08 PM EDT) Component Value Ref Test Analysis Performed At Patholo gist Range Method Time Signature VB Text Department: Vascular Surgery Lab VASCUBASE Report Patient: [id number] (ANGEL LUIS SALINAS) CPT: 09831 ICD10: R60.0 Referring Physician: GRETCHEN YOON ?? Phone: Indications: Right Upper extremity swelling ICD10 Diagnosis Code: R60.0 Findings: Right: The axillary, brachial, radial, ulnar, cephalic and basilic veins are patent and fully compressibl e with no evidence of thrombus. The internal jugular vein is patent and fully compressible with no evidence of th rombus. While compression maneuvers cannot be performed on the subclavian or innominate veins, there is no pulsed Doppler or color Doppler evidence to cantor ggest thrombus in these veins. Interpretation: Right: No evidence of upper extremity deep or cantor perficial venous thrombus. No evidence of internal jugular vein thrombus. Comparison: ?? No previous study in our vascular lab database for comparison. Electronically Signed by: CATHY SALVADOR on 2019-12-01 04:04:34 PM VB Text End of Report VASCUBASE Report Specimen (Source) Anatomical Collection Method Collection Time Re ceived Time Location / / Volume Laterality 12/01/2019 5:08 PM EDT Gretchen Yoon MD VASCULAR ORDERABLES Performing Organization Address City/State/ZIP Code Phon e Number [email or web address] CT Head wo Contrast (Generic) (12/01/2019 2:29 PM EDT) Anatomical Region Laterality Modality Head Computed Tomography Specimen (Source) Anatomical Location Collection Method / Collectio n Time Received Time / Laterality Volume Impressions 12/01/2019 3:53 PM EDT 1. ??Unchanged hemorrhage in the region of the left optic tract with unchanged mild edema. 2. ??Small lucent lesion within the supe rior left parietal bone which likely represents a benign hemangioma or venous severino. 3. ??Dental disease as detailed above. Preliminary report signed by: Silvio Baker at 12/01/2019 3:20 PM I have personally reviewed the image(s) and the resident's interpretation and agree with the findings, Merari Collins at 3:53 PM Thank you for letting us participate in the care of this patient. For questions regarding this report, please contact [facility] number below. ? Narrative 12/01/2019 3:53 PM EDT EXAMINATION: CT HEAD WO CONTRAST (GENERIC) CLINICAL HISTORY: Headache, intracranial hemorrhage suspected Serial CT scan: please assess for propag ation of known ICH noted on prior Head CT/imaging. TECHNIQUE: CT head performed without intravenous co ntrast administration. COMPARISON: Head CT 11/30/2019. CT angiogram of the [place] 11/01. FINDINGS: Ventricles are normal in size. Basal cis terns are patent. Unchanged hyperdense 2.3 x 0.7 x 0.6 cm tubular hemorrhage projecting along the course of the left optic tract (axial se [facility] 2 image 16), consistent with intraparenchymal hematoma. Unchanged sub tle low-attenuation surrounding the hematoma consistent with mild edema. No significant mass effect. Silveira matter white matter differentiation is otherwis e well preserved. No new sites of acute intracranial hemorrhage. Orbits are grossly unremarkable. Mild mu cosal thickening of the right maxillary sinus and mild mucosal thickening of the inferior left maxillary sinus. Frothy secretions within the left frontal sinus . There is periodontal disease surrounding the posterior maxillary mola rs bilaterally. Mastoid air cells are clear. There is a 5 mm lucent lesion wit hin the diploic space of the superior left parietal bone (axial series 4 image 246) with thinning of the outer table cortex. No calvarial fracture. Procedure Note Merari Collins MD - 12/01/2019Formatting o f this note might be different from the original. EXAMINATION: CT HEAD WO CONTRAST (GENERI C) CLINICAL HISTORY: Headache, intracranial hemorrhage suspected Serial CT scan: please assess for propag ation of known ICH noted on prior Head CT/imaging. TECHNIQUE: CT head performed without intravenous co ntrast administration. COMPARISON: Head CT 11/30/2019. CT angiogram of the [place] 11/01. FINDINGS: Ventricles are normal in size. Basal cis terns are patent. Unchanged hyperdense 2.3 x 0.7 x 0.6 cm tubular hemorrhage projecting along the course of the left optic tract (axial se jhonathan 2 image 16), consistent with intraparenchymal hematoma. Unchanged sub tle low-attenuation surrounding the hematoma consistent with mild edema. No significant mass effect. Silveira matter white matter differentiation is otherwis e well preserved. No new sites of acute intracranial hemorrhage. Orbits are grossly unremarkable. Mild mu cosal thickening of the right maxillary sinus and mild mucosal thickening of the inferior left maxillary sinus. Frothy secretions within the left frontal sinus . There is periodontal disease surrounding the posterior maxillary mola rs bilaterally. Mastoid air cells are clear. There is a 5 mm lucent lesion wit hin the diploic space of the superior left parietal bone (axial series 4 image 246) with thinning of the outer table cortex. No calvarial fracture. IMPRESSION 1. Unchanged hemorrhage in the region of the left optic tract with unchanged mild edema. 2. Small lucent lesion within the superi or left parietal bone which likely represents a benign hemangioma or venous severino. 3. Dental disease as detailed above. Preliminary report signed by: Silvio Baker at 12/01/2019 3:20 PM I have personally reviewed the image(s) and the resident's interpretation and agree with the findings, Merari Collins at 3:53 PM Thank you for letting us participate in the care of this patient. For questions regarding this report, please contact e number below. Gretchen Yoon MD IMG CT ORDERABLES Scan, Peripheral Blood (12/01/2019 12:51 PM EDT) [facility] Method Time Signature Plat Estimate Decreased [facility] RBC Morphology Normal [facility] Less than 1 /HPF [facility] Platelets [facility] Specimen Anatomical Collection Method Collection Time Receive d Time (Source) Location / / Volume Laterality Blood specimen 12/01/2019 12:51 0 1:05 (specimen) PM EDT PM EDT Resulting Agency Comment Spec In Lab Riki Stevens MD HEMATOLOGY ORDERABLES Performing Organization Address City/State/ZIP [place] [address] (ABNORMAL) Differential, Automated (12/01/2019 12:51 PM EDT) [facility] Method Time Signature Neutrophils % 74.9 % [facility] Neutr Abs (ANC) 6.34 (H) 1.70 - [facility] 6.10 [facility] x10(3)/[facility] LABORATORY Lymphocytes % 11.4 % [facility] Lymphocytes Abs 1.0 0.9 - 3.2 [facility] x10(3)/[facility] LABORATORY Monocytes % 12.4 % [facility] Monocyte Abs 1.0 (H) 0.3 - 0.9 [facility] x10(3)/[facility] LABORATORY Eosinophils % 0.4 % [facility] Eosinophils Abs 0.0 0.0 - 0.4 [facility] x10(3)/[facility] LABORATORY Basophils % 0.4 % [facility] Basophils Abs 0.0 0.0 - 0.1 [facility] x10(3)/[facility] LABORATORY Immature Gran % 0.50 % [facility] Comment: Immature granulocytes(IG's)percentage an d absolute count will include metamyelocytes, myelocytes, and promyelo cytes. Blood smears from CBCs yielding IG's will be scanned manually for ana nagy. If this scan disagrees with the automated IG or if promyelocytes are not ed, a manual differential will be performed. Pita Gran Abs 0.04 0.00 - 0.04 x10(3)/[facility] Specimen Anatomical Collection Method Collection Time Receive d Time (Source) Location / / Volume Laterality Blood specimen 12/01/2019 12:51 0 1:05 (specimen) PM EDT PM EDT Resulting Agency Comment Spec In Lab Riki Stevens MD HEMATOLOGY ORDERABLES Performing Organization Address City/State/ZIP Code Phon e Number [place] [id number] (ABNORMAL) Hemogram (12/01/2019 12:51 PM EDT) Analysis Performed At Patho logist Time Signature WBC 8.4 4.0 - 9.5 [facility] x10(3)/[facility] LABORATORY RBC 3.69 (L) 4.58 - [facility] 5.54 [facility] x10(6)/[facility] LABORATORY Hemoglobin 10.8 (L) 13.7 - [facility] 16.5 gm/dL [facility]ORY Hematocrit 32.4 (L) 40.5 - [facility] 48.5 % [facility] MCV 87.8 82.9 - [facility] 93.1 [facility] LABORATORY MCH 29.3 27.5 - M[place] DOV 32.1 pg [facility] LABORATORY MCHC 33.3 32.0 - [facility] DOV 35.7 gm/dL [facility] LAB[facility]ATORY Platelets 72 (L) 145 - 357 [facility] LABORATORY RDWSD 47.2 (H) 36.0 - [facility] 45.0 [facility] LABORATORY RDWCV 14.6 (H) 11.4 - [facility] DOV 13.8 % [facility] LABORATORY MPV 12.2 7.6 - 12.9 [facility] LABORATORY nRBC % Auto 0.0 % [facility] nRBC Abs Auto 0.000 0.000 - [facility] 0.000 [facility] x10(3)/[facility] LABORATORY Specimen Anatomical Collection Method Collection Time Receive d Time (Source) Location / / Volume Laterality Blood specimen 12/01/2019 12:51 0 1:05 (specimen) PM EDT PM EDT Resulting Agency Comment Spec In Lab Riki Stevens MD HEMATOLOGY ORDERABLES Performing Organization Address City/State/ZIP Code Phon e Number [address] (ABNORMAL) Coox2 (12/01/2019 11:42 AM EDT) Analysis Performed At Patho logist Time Signature pO2 Coox 30 mmHg [facility] Hgb Blood Gas 11.6 (L) 13.7 - [facility] 16.5 gm/dL [facility]ATORY O2HB Coox 60.8 % [facility] COHB Coox 0.6 % [facility] Comment: Nonsmokers: 0.5-1.5% COHB Smokers: Variable, but usually less than 10% Toxic: 20-30% COHB Lethal: Greater than 60% COHB METHB Coox 0.6 <=1.5 % [facility]AT[facility] Source Coox Mixed Venous [facility] Specimen Anatomical Collection Method Collection Time Receive d Time (Source) Location / / Volume Laterality Blood specimen 12/01/2019 11:42 0 (specimen) AM EDT 11:42 AM EDT Gretchen Yoon MD CHEMISTRY ORDERABLES Performing Organization Address City/State/ZIP [place] [address] Sedimentation rate (12/01/2019 3:55 AM EDT) P athologist Signature Sed Rate 25 3 - 46 [facility] mm/hr [facility] Comment: Effective June 11, 2019 new capillar y photometric technology has resulted in a change in reference ranges. It is r ecommended that each ESR result be reviewed with its own age appropriate re ference range. Specimen Anatomical Collection Method Collection Time Receive d Time (Source) Location / / Volume Laterality Blood specimen Venous Draw / 12/01/2019 3:55 AM 2019 4:00 (specimen) Unknown EDT AM EDT Resulting Agency Comment Spec In Lab Rossy Winn MD HEMATOLOGY ORDERABLES Performing Organization Address City/[facility]/ZIP [place] [address] (ABNORMAL) CRP, acute inflammation (12/01/2019 3:55 AM EDT) P athologist Signature CRP 92.5 (H) <=4.9 mg/L [facility] Specimen Anatomical Collection Method Collection Time Receive d Time (Source) Location / / Volume Laterality Blood specimen Venous Draw / 12/01/2019 3:55 AM 2019 4:06 (specimen) Unknown EDT AM EDT Resulting Agency Comment Spec In Lab Rossy Winn MD CHEMISTRY ORDERABLES Performing Organization Address City/[facility]/ZIP Code Phon e Number [address] ABORH Recheck Status (12/01/2019 3:55 AM EDT) [facility] Method Time Signature ABORH Recheck Order Placed [facility] LABORATORY ABORH Type Complete [facility] LABORATORY Specimen Anatomical Collection Method Collection Time Receive d Time (Source) Location / / Volume Laterality Blood specimen 12/01/2019 3:55 AM 020 4:15 (specimen) EDT AM EDT Resulting Agency Comment Spec In Lab Lewis Gee MD BLOOD BANK ORDERABLES Performing Organization Address City/[facility]/ZIP [place] [address] Antibody screen (12/01/2019 3:55 AM EDT) Patholo gist Method Time Signature Ab Screen Negative [facility] LABORATORY Expires at 12/04/2019 [facility] [id number] on: [facility]ORY Specimen Anatomical Collection Method Collection Time Receive d Time (Source) Location / / Volume Laterality Blood specimen 12/01/2019 3:55 AM 020 4:15 (specimen) EDT AM EDT Resulting Agency Comment Spec In Lab Lewis Gee MD BLOOD BANK ORDERABLES Performing Organization Address City/State/ZIP [place] [address] ABO/Rh Typing (12/01/2019 3:55 AM EDT) athologist Signature ABORh Type AB Pos [facility] Specimen Anatomical Collection Method Collection Time Receive d Time (Source) Location / / Volume Laterality Blood specimen 12/01/2019 3:55 AM 020 4:15 (specimen) EDT AM EDT Resulting Agency Comment Spec In Lab Lewis Gee MD BLOOD BANK ORDERABLES Performing Organization Address City/[facility] [place] [address] (ABNORMAL) Troponin (12/01/2019 3:55 AM EDT) athologist Signature Troponin-T 4.35 (H) 0.00 - [facility] 0.00 ng/mL [facility] Comment: result rechecked-slw The 99th percentile for Troponin T is le ss than 0.01 ng/mL, any detectable cTnT concentration using this assay should be considered elevated. According to the third universal definit ion of myocardial infarction the following criteria with a clinical prese ntation consistent with acute myocardial ischemia meets the diagnosis for a myocardial infarction ([place]). Detection of a rise and/or fall of cTnT, with at least one value greater than the 99th percentile (> or = 0.01) and wi th at least one of the following ?? Symptoms of ischemia ?? New or presumed new significant ST-se gment-T wave (ST-T) changes or new left bundle branch block (LBBB) ?? Development of pathologic Q waves in the ECG ?? Imaging evidence of new loss of viabl e myocardium or new regional wall motion abnormality ?? Identification of an intracoronary th rombus by angiography or autopsy Samples for cTnT testing should be obtai alta serially upon first assessment and again 3 to 6 hours later. If the clinica l suspicion is high and previous samples have been negative an additional sample may be indicated. Reference: [place] Definition of Myocardial Infarction. Journal of the [place] [employer] 2012;60:1581-98 Specimen Anatomical Collection Method Collection Time Receive d Time (Source) Location / / Volume Laterality Blood specimen 12/01/2019 3:55 AM 020 4:00 (specimen) EDT AM EDT Resulting Agency Comment Spec In Lab Gretchen Yoon MD CHEMISTRY ORDERABLES Performing Organization Address City/State/ZIP Code Phon e Number [address] Magnesium (12/01/2019 3:55 AM EDT) P athologist Signature Magnesium 0.96 0.69 - 1.07 [facility] mmol/L [facility]ORY Specimen Anatomical Collection Method Collection Time Receive d Time (Source) Location / / Volume Laterality Blood specimen 12/01/2019 3:55 AM 020 4:00 (specimen) EDT AM EDT Resulting Agency Comment Spec In Lab Gretchen Yoon MD CHEMISTRY ORDERABLES Performing Organization Address City/[facility]/ZIP Code [place] [address] (ABNORMAL) BMP w/fasting Glucose (12/01/2019 3:55 AM EDT) P athologist Signature Glucose 148 (H) 65 - 99 [facility] Fasting mg/dL [facility] Comment: ?Fasting* Glucose Interpretive C riteria Normal ?65-99 mg/dL Impaired Fasting glucose ?100-125 mg/dL Consistent with Diabetes Mellitus ? >or= 126 mg/dL *Fasting is defined as no caloric intake for at least 8 hours In the absence of unequivocal hypergly cemia a plasma glucose value of >or= 126 mg/dL should be repeated on a subseq uent day. Diagnosis and Classification of Diabetes Mellitus, Position Statement from the [place] [employer]. ??Diabete s Care, Volume 33, Supplement 1, Jul 2009 BUN 11 10 - 20 mg/dL [facility] Creatinine 0.96 0.80 - 1.50 mg/dL [facility] Sodium 132 (L) 135 - 145 mmol/L [facility] Potassium 4.0 3.5 - 5.0 mmol/L [facility] Comment: Please note: ??Patients with WBC >100,00 0 may have falsely elevated Potassium levels. ??For accurate Potassium quantif ication in these patients send serum separator tube (gold top) for subsequent determinations. ??Contact the Clinical Chemistry Laboratory if there are any qu estions. Chloride 105 98 - 107 mmol/L [facility] CO2 17 (L) 22 - 31 mmol/L [facility] Anion Gap 10 5 - 15 mmol/L [facility] Calcium 7.6 (L) 8.5 - 10.5 mg/dL [facility] Estimated GFR 78 >=60 mL/min/1.73 m?? [facility] Comment: The eGFR was calculated using the CKD-EP I equation. As with all creatinine based estimates of kidney function, eGFR values calculated with the CKD-EPI equation are not accurate in patients wi th acute kidney failure, extremes of body mass or the acutely ill. [email or web address]/[facility] eGFR 91 >=60 mL/min/1.73 m?? [facility] Comment: The eGFR was calculated using the CKD-EP I equation. As with all creatinine based estimates of kidney function, eGFR values calculated with the CKD-EPI equation are not accurate in patients wi th acute kidney failure, extremes of body mass or the acutely ill. [email or web address]/DHnkf Specimen Anatomical Collection Method Collection Time Receive d Time (Source) Location / / Volume Laterality Blood specimen 12/01/2019 3:55 AM 020 4:00 (specimen) EDT AM EDT Resulting Agency Comment Spec In Lab Gretchen Yoon MD CHEMISTRY ORDERABLES Performing Organization Address City/State/[place] [address] (ABNORMAL) Hemogram (12/01/2019 3:55 AM EDT) Analysis Performed At Patho [facility] Time Signature WBC 11.0 (H) 4.0 - 9.5 [facility] x10(3)/[facility] LABORATORY RBC 3.46 (L) 4.58 - [facility] 5.54 [facility] x10(6)/[facility] LABORATORY Hemoglobin 10.2 (L) 13.7 - [facility] 16.[facility] gm/dL [facility] Hematocrit 31.2 (L) 40.5 - [facility] 48.5 % [facility]ORY MCV 90.2 82.9 - [facility] 93[facility]1 [facility] LAB[facility]ATORY MCH 29.5 27.5 - [facility] 32.1 pg [facility]ORY MCHC 32.7 32.0 - [facility] 35.7 gm/dL [facility] Platelets 98 (L) 145 - 357 [facility] x10(3)/[facility] LABORATORY RDWSD 47.9 (H) 36.0 - [facility].0 [facility] LAB[facility]ATORY RDWCV 14.6 (H) 11.4 - [facility] 13.8 % [facility] LAB[facility]ORY MPV 12.3 7.6 - 12.9 [facility] LABORATORY nRBC % Auto 0.0 % [facility] nRBC Abs Auto 0.000 0.000 - [facility] 0.000 [facility] x10(3)/[facility] LABORATORY Specimen Anatomical Collection Method Collection Time Receive d Time (Source) Location / / Volume Laterality Blood specimen 12/01/2019 3:55 AM 020 4:00 (specimen) EDT AM EDT Resulting Agency Comment Spec In Lab Gretchen Yoon MD HEMATOLOGY ORDERABLES Performing Organization Address City/State/ZIP [place] [address] (ABNORMAL) BLOOD GAS 2 ARTERIAL (11/30/2019 10:39 PM EDT) Analysis Performed At [facility] Time Signature pH Art 7.45 7.35 - [facility] LABORATORY pCO2 Art 23 (L) 35 - 45 [facility] LABORATORY pO2 Art 76 (L) 85 - 104 [facility] LABORATORY HCO3 Art 15.3 (L) 20.0 - [facility] 26.0 [facility] mmol/[facility] LABORATORY BE Art -8.7 (L) -3.0 - 3.0 [facility] mmol/L [facility] LABORATORY Hgb Blood Gas 11.7 (L) 13.7 - [facility] 16.5 gm/dL [facility] O2HB Art 94.2 94.0 - [facility] 97.0 % [facility] LABORATORY COHB Art 0.5 % [facility] LABORATORY Comment: Nonsmokers: 0.5-1.5% COHB Smokers: Variable, but usually less than 10% Toxic: 20-30% COHB Lethal: Greater than 60% COHB METHB Art 0.6 <=1.5 % [facility] LABORATORY Na Whole Blood 133 (L) 135 - 145 mmol/L [facility] LABORATORY K Whole Blood 3.8 3.5 - 5.0 mmol/L [facility] LABORATORY Comment: Please note: Patients with WBC >100,000 may have falsely elevated Potassium levels. Contact the Clinical Chemistry L aboratory if there are any questions. ICa Whole Blood 1.10 (L) 1.15 - 1.33 mmol/L [facility] LABORATORY Comment: Note: ??Total bilirubin higher than 20 m g/dL may lead to falsely low ionized calcium. CL Whole Blood 109 (H) 98 - 107 mmol/L [facility] LABORATORY Gluc Whole Bld 120 65 - 199 mg/dL [facility] LABORATORY Comment: Diabetes: >=200 mg/dL plus symp toms. Lactate WB 0.8 0.5 - 2.2 mmol/L [facility] LABORATORY FIO2 Art 100 % [facility] LABORATORY PF Ratio Art 76 [facility] LABORATORY Specimen Anatomical Collection Method Collection Time Receive d Time (Source) Location / / Volume Laterality Blood specimen 11/30/2019 10:39 0 (specimen) PM EDT 10:39 PM EDT Gretchen Yoon MD CHEMISTRY ORDERABLES Performing Organization Address City/State/[place] [address] EKG 12 Lead (11/30/2019 9:07 PM EDT) Component Value Ref Range Test Analysis Performed Pathologis t Method Time At Signature Ventricular rate 93 BPM MUSE SYSTEM Atrial Rate 93 BPM MUSE SYSTEM P-R Interval 126 ms MUSE SYSTEM QRS Duration 88 ms MUSE SYSTEM Q-T Interval 352 ms MUSE SYSTEM QTC Calculated 437 ms MUSE SYSTEM (Bezet) Calculated P 12 degrees MUSE SYSTEM Jackson Calculated R 19 degrees MUSE SYSTEM Jackson Calculated T -47 degrees MUSE SYSTEM Jackson INTERPRETATION Sinus rhythm with Premature supraventricular complexes and Premature ventricular complexes MUSE SYST EM Inferior infarct (cited on or before 29-NOV-2019) ST & T wave abnormality, consider inferior ischemia Abnormal ECG When compared with ECG of 30-NOV-2019 13:55, No significant change was found Confirmed by Sumanth Akbar MD ([id number]) on 12/02/2019 8:40:44 AM Specimen Anatomical Collection Method Collection Time Receive d Time (Source) Location / / Volume Laterality 11/30/2019 9:07 PM 0 8:40 EDT AM EDT Gretchen Yoon MD ECG ORDERABLES Performing Organization Address City/[facility]/ZIP Code Phon e Number MUSE SYSTEM (ABNORMAL) Urinalysis Microscopic Exam (11/30/2019 8:40 PM EDT) P athologist Signature RBC UA 27 (H) 0 - 3 /HPF [facility] LABORATORY WBC UA 4 (H) 0 - 3 /HPF [facility] LABORATORY Hyaline Cast 3 (H) 0 - 2 /LPF [facility] LABORATORY Specimen (Source) Anatomical Collection Method Collection Time Re ceived Time Location / / Volume Laterality Urine specimen 11/30/2019 8:40 11/30/2019 obtained via PM EDT 10:51 PM EDT indwelling urinary catheter (specimen) Resulting Agency Comment Spec In Lab Rossy Winn MD URINE ORDERABLES Performing Organization Address City/[facility]/ZIP Code Phon e Number [place] [phone] (ABNORMAL) Urinalysis with reflex Culture (11/30/2019 8:40 PM EDT) Patholo gist Method Time Signature Glucose UA Negative Negative [facility] mg/dL [facility] LABORATORY Protein UA Negative Negative [facility]/dL [facility] LABORATORY Bilirubin UA Negative Negative [facility] mg/dL [facility] LABORATORY Comment: Clinical correlation required for positi ve Urine Bilirubin results as false positive may occur with some drugs and d rug related products. If a false positive is suspected a serum total bili morales should be considered if clinically indicated. Urobilinogen UA Normal Normal mg/dL [facility] LABORATORY pH UA 5.5 5.0 - 8.0 [facility] LABORATORY Blood UA Moderate (A) Negative mg/dL [facility] Ketones UA 40 (A) Negative mg/dL [facility] Nitrite UA Negative Negative [facility] LABORATORY Leukocytes UA Trace (A) Negative [facility] LABORATORY Appearance UA Clear Clear [facility] LABORATORY Spec [place] UA 1.026 1.006 - 1.030 [facility] LABORATORY Color UA Yellow Yellow [facility] LABORATORY Culture Reflexed No [facility] LABORATORY Specimen (Source) Anatomical Collection Method Collection Time Re ceived Time Location / / Volume Laterality Urine specimen 11/30/2019 8:40 11/30/2019 obtained via PM EDT 10:51 PM EDT indwelling urinary catheter (specimen) Resulting Agency Comment Spec In Lab Gretchen Yoon MD URINE ORDERABLES Performing Organization Address City/State/[place] [address] (ABNORMAL) pro-Brain Natriuretic Peptide (11/30/2019 8:30 PM EDT) P athologist Signature ProBNP 2,802 (H) <=125 [facility] pg/mL [facility] LABORATORY Specimen Anatomical Collection Method Collection Time Receive d Time (Source) Location / / Volume Laterality Blood specimen Venous Draw / 11/30/2019 8:30 PM 2019 8:36 (specimen) Unknown EDT PM EDT Resulting Agency Comment Spec In Lab Rossy Winn MD CHEMISTRY ORDERABLES Performing Organization Address City/State/ZIP Code Phon e Number [place] [phone] (ABNORMAL) Troponin (11/30/2019 8:30 PM EDT) athologist Signature Troponin-T 5.04 (H) 0.00 - MELINA MONAE 0.00 ng/mL [facility] LABORATORY Comment: The 99th percentile for Troponin T is le ss than 0.01 ng/mL, any detectable cTnT concentration using this assay should be considered elevated. According to the third universal definit ion of myocardial infarction the following criteria with a clinical prese ntation consistent with acute myocardial ischemia meets the diagnosis for a myocardial infarction ([place]). Detection of a rise and/or fall of cTnT, with at least one value greater than the 99th percentile (> or = 0.01) and wi th at least one of the following ?? Symptoms of ischemia ?? New or presumed new significant ST-se gment-T wave (ST-T) changes or new left bundle branch block (LBBB) ?? Development of pathologic Q waves in the ECG ?? Imaging evidence of new loss of viabl e myocardium or new regional wall motion abnormality ?? Identification of an intracoronary th rombus by angiography or autopsy Samples for cTnT testing should be obtai alta serially upon first assessment and again 3 to 6 hours later. If the clinica l suspicion is high and previous samples have been negative an additional sample may be indicated. Reference: [place] Definition of Myocardial Infarction. Journal of the [place] [employer] 2012;60:1581-98 Specimen Anatomical Collection Method Collection Time Receive d Time (Source) Location / / Volume Laterality Blood specimen Venous Draw / 11/30/2019 8:30 PM 2019 8:36 (specimen) Unknown EDT PM EDT Resulting Agency Comment Spec In Lab Rossy Winn MD CHEMISTRY ORDERABLES Performing Organization Address City/State/[place] [address] Magnesium (11/30/2019 8:30 PM EDT) athologist Signature Magnesium 0.79 0.69 - 1.07 [facility] mmol/L [facility] LABORATORY Specimen Anatomical Collection Method Collection Time Receive d Time (Source) Location / / Volume Laterality Blood specimen 11/30/2019 8:30 PM 020 8:35 (specimen) EDT PM EDT Resulting Agency Comment Spec In Lab Gretchen Yoon MD CHEMISTRY ORDERABLES Performing Organization Address City/State/[place] [address] (ABNORMAL) Basic Metabolic Panel (non-fasting) (11/30/2019 8:30 PM EDT) athologist Signature Glucose Lvl 132 65 - 199 [facility] mg/dL [facility] LABORATORY Comment: Diabetes: >=200 mg/dL plus symp toms BUN 12 10 - 20 mg/dL [facility] LABORATORY Creatinine 0.94 0.80 - 1.50 mg/dL [facility]OR[facility] Sodium 136 135 - 145 mmol/L [facility] Potassium 3.9 3.5 - 5.0 mmol/L [facility] Comment: Please note: ??Patients with WBC >100,00 0 may have falsely elevated Potassium levels. ??For accurate Potassium quantif ication in these patients send serum separator tube (gold top) for subsequent determinations. ??Contact the Clinical Chemistry Laboratory if there are any qu estions. Chloride 108 (H) 98 - 107 mmol/L [facility] CO2 17 (L) 22 - 31 mmol/L [facility] Anion Gap 11 5 - 15 mmol/L [facility]ORY Calcium 7.9 (L) 8.5 - 10.5 mg/dL [facility] Estimated GFR 80 >=60 mL/min/1.73 m?? [facility] Comment: The eGFR was calculated using the CKD-EP I equation. As with all creatinine based estimates of kidney function, eGFR values calculated with the CKD-EPI equation are not accurate in patients wi th acute kidney failure, extremes of body mass or the acutely ill. http://[employer]/DHnkf eGFR 93 >=60 mL/min/1.73 m?? [facility] Comment: The eGFR was calculated using the CKD-EP I equation. As with all creatinine based estimates of kidney function, eGFR values calculated with the CKD-EPI equation are not accurate in patients wi th acute kidney failure, extremes of body mass or the acutely ill. http://[employer]/DHnkf Specimen Anatomical Collection Method Collection Time Receive d Time (Source) Location / / Volume Laterality Blood specimen 11/30/2019 8:30 PM 020 8:35 (specimen) EDT PM EDT Resulting Agency Comment Spec In Lab Gretchen Yoon MD CHEMISTRY ORDERABLES Performing Organization Address [facility] Phon e Number [address] Blood culture (11/30/2019 8:30 PM EDT) Patholo gist Method Time Signature Blood Culture No growth MELINA MONAE at 5 days. [facility] LABORATORY Specimen Anatomical Collection Method Collection Time Receive d Time (Source) Location / / Volume Laterality Blood specimen 11/30/2019 8:30 PM 020 9:40 (specimen) EDT PM EDT Comment: L HAND Resulting Agency Comment Spec In Lab Gretchen Yoon MD MICROBIOLOGY - BLOOD ORDERAB LES Performing Organization Address City/[facility] [place] [address] Blood culture (11/30/2019 8:30 PM EDT) Patholo gist Method Time Signature Blood Culture No growth MELINA MONAE at 5 days. [facility] LABORATORY Specimen Anatomical Collection Method Collection Time Receive d Time (Source) Location / / Volume Laterality Blood specimen 11/30/2019 8:30 PM 020 9:40 (specimen) EDT PM EDT Comment: R HAND Resulting Agency Comment Spec In Lab Gretchen Yoon MD MICROBIOLOGY - BLOOD ORDERAB LES Performing Organization Address [facility] Phon e Number [address] XR Chest One View (11/30/2019 8:20 PM EDT) Anatomical Region Laterality Modality Chest N/A Digital Radiography Specimen (Source) Anatomical Location Collection Method / Collectio n Time Received Time / Laterality Volume Impressions 11/30/2019 8:32 PM EDT Impression: New/ increased bibasilar opacities since 11/29/2019; differential includes bibasilar atelectasis and small effusion s vs aspiration, infection. Upper lungs are clear. No pneumothorax i s seen. Thank you for letting us participate in the care of this patient. For questions regarding this report, please contact e number below. ? Electronically signed by: ALBA Watson [facility] ([phone]), at 11/30/2019 8:32 PM Narrative 11/30/2019 8:32 PM EDT EXAMINATION: XR CHEST ONE VIEW CLINICAL HISTORY: 74 M w/ inferior STEMI c/b shock, now febrile TECHNIQUE: AP portable semierect 75 degrees upright chest COMPARISON: 11/29/2019. FINDINGS: Examination demonstrates new bibasilar o pacities, most consistent with bibasilar atelectasis and small bilateral effusion s. Pleural fluid is seen in the right fissures. No pneumothorax seen. Cardiomediastinal silhouette is unchanged. There is a right internal jugular pulmon kayy artery catheter with the tip projecting over the expected location of the distal right interlobar artery. No acute osseous lesion. Procedure Note Latoya Ivey MD - 0 EXAMINATION: XR CHEST ONE VIEW CLINICAL HISTORY: 74 M w/ inferior STEMI c/b shock, now febrile TECHNIQUE: AP portable semierect 75 degrees upright chest COMPARISON: 11/29/2019. FINDINGS: Examination demonstrates new bibasilar o pacities, most consistent with bibasilar atelectasis and small bilateral effusion s. Pleural fluid is seen in the right fissures. No pneumothorax seen. Cardiomediastinal silhouette is unchanged. There is a right internal jugular pulmon kayy artery catheter with the tip projecting over the expected location of the distal right interlobar artery. No acute osseous lesion. IMPRESSION Impression: New/ increased bibasilar opacities since 11/29/2019; differential includes bibasilar atelectasis and small effusion s vs aspiration, infection. Upper lungs are clear. No pneumothorax i s seen. Thank you for letting us participate in the care of this patient. For questions regarding this report, please contact e number below. Gretchen Yoon MD IMG DX ORDERABLES (ABNORMAL) BLOOD GAS 2 ARTERIAL (11/30/2019 8:09 PM EDT) Analysis Performed At Patho logist Time Signature pH Art 7.45 7.35 - [facility] 7.45 [facility] LABORATORY pCO2 Art 27 (L) 35 - 45 [facility] mmHg [facility] LABORATORY pO2 Art 68 (L) 85 - 104 [facility] LABORATORY HCO3 Art 18.2 (L) 20.0 - [facility] 26.0 [facility] mmol/[facility] LABORATORY BE Art -5.9 (L) -3.0 - 3.0 [facility] mmol/L [facility] LABORATORY Hgb Blood Gas 12.4 (L) 13.7 - [facility] 16.5 gm/dL [facility] O2HB Art 93.1 (L) 94.0 - [facility] 97.0 % [facility] LABORATORY COHB Art 0.8 % [facility] LABORATORY Comment: Nonsmokers: 0.5-1.5% COHB Smokers: Variable, but usually less than 10% Toxic: 20-30% COHB Lethal: Greater than 60% COHB METHB Art 0.4 <=1.5 % [facility]ORAT[facility] Na Whole Blood 133 (L) 135 - 145 mmol/L [facility] K Whole Blood 3.6 3.5 - 5.0 mmol/L [facility] Comment: Please note: Patients with WBC >100,000 may have falsely elevated Potassium levels. Contact the Clinical Chemistry L aboratory if there are any questions. ICa Whole Blood 1.13 (L) 1.15 - 1.33 mmol/L [facility] Comment: Note: ??Total bilirubin higher than 20 m g/dL may lead to falsely low ionized calcium. CL Whole Blood 108 (H) 98 - 107 mmol/L [facility] Gluc Whole Bld 121 65 - 199 mg/dL [facility] Comment: Diabetes: >=200 mg/dL plus symp toms. Lactate WB 1.2 0.5 - 2.2 mmol/L [facility] Flow Art 5.0 LPM [facility] LABORATORY Specimen Anatomical Collection Method Collection Time Receive d Time (Source) Location / / Volume Laterality Blood specimen 11/30/2019 8:09 PM 020 8:09 (specimen) EDT PM EDT Gretchen Yoon MD CHEMISTRY ORDERABLES Performing Organization Address City/State/ZIP Code Phon e Number [place] [phone] HOSPITAL LAB[address]ORY Drive CT Angiogram [place] (11/30/2019 4:36 PM EDT) Anatomical Region Laterality Modality Neck, Head Computed Tomography Specimen (Source) Anatomical Location Collection Method / Collectio n Time Received Time / Laterality Volume Impressions 11/30/2019 5:[address]: Stable hemorrhage in the region of the l eft optic tract. CTA: Negative exam. No abnormal vasculat ure in the area of hemorrhage. Thank you for letting us participate in the care of this patient. For questions regarding this report, please contact destini number below. ? Narrative 11/30/2019 5:04 PM EDT EXAMINATION: CT HEAD WO CONTRAST (GENERIC), CT ANGIOGRAM [place] CLINICAL HISTORY: Headache, intracranial hemorrhage suspected F/U on known ICH - assessing for propaga tion TECHNIQUE: CT head performed without intravenous co ntrast administration. CT angiogram [place] 65 cc Omnipaque 350 administered intrave nously after timing bolus. MIP images created on separate workstation. COMPARISON: CT head dated 11/30/2019 1026 hours FINDINGS: Head CT: Similar appearance of air-fluid level right maxillary antrum. There is mucosal thickening right greater than le ft maxillary antrum. Mucosal thickening left greater than rig ht ethmoid air cells and air-fluid level in the left frontal sinus similar to edwina or exam. There is stable appearance of hemorrhage projecting in the junction of the left mesial temporal lobe and basal ganglia i n the region of the left optic tract. This is stable when viewed on coronal im ages. No new hemorrhage seen. No gross mass effect. Similar appearance of small amount of edema adjacent to the hemorrhage. CT ANGIOGRAM: There is normal appearance of the intracranial portion of the vertebrobasilar system and posterior cir culation branches. There is a small amount of hard plaque a ssociated with the cavernous and supraclinoid portion ICA without narrowi ng. Dominant anterior circulation on the lef t with left ICA greater than right in size and dominant left A1 segment with s mall right A1 segment and patent anterior communicating artery. Normal appearance of the anterior circul ation branches. No focal stenosis, caliber change or ane urysm. There is no evidence of abnormal vessel or vascular nidus in the region of the focal hemorrhage. Procedure Note Angel Luis Lo MD - 11/30/2019Formatt ing of this note might be different from the original. EXAMINATION: CT HEAD WO CONTRAST (GENERI C), CT ANGIOGRAM [place] CLINICAL HISTORY: Headache, intracranial hemorrhage suspected F/U on known ICH - assessing for propaga tion TECHNIQUE: CT head performed without intravenous co ntrast administration. CT angiogram [place] 65 cc Omnipaque 350 administered intrave nously after timing bolus. MIP images created on separate workstation. COMPARISON: CT head dated 11/30/2019 1026 hours FINDINGS: Head CT: Similar appearance of air-fluid level right maxillary antrum. There is mucosal thickening right greater than le ft maxillary antrum. Mucosal thickening left greater than rig ht ethmoid air cells and air-fluid level in the left frontal sinus similar to edwina or exam. There is stable appearance of hemorrhage projecting in the junction of the left mesial temporal lobe and basal ganglia i n the region of the left optic tract. This is stable when viewed on coronal im ages. No new hemorrhage seen. No gross mass effect. Similar appearance of small amount of edema adjacent to the hemorrhage. CT ANGIOGRAM: There is normal appearance of the intracranial portion of the vertebrobasilar system and posterior cir culation branches. There is a small amount of hard plaque a ssociated with the cavernous and supraclinoid portion ICA without narrowi ng. Dominant anterior circulation on the lef t with left ICA greater than right in size and dominant left A1 segment with s mall right A1 segment and patent anterior communicating artery. Normal appearance of the anterior circul ation branches. No focal stenosis, caliber change or ane urysm. There is no evidence of abnormal vessel or vascular nidus in the region of the focal hemorrhage. IMPRESSION Head CT: Stable hemorrhage in the region of the l eft optic tract. CTA: Negative exam. No abnormal vasculat ure in the area of hemorrhage. Thank you for letting us participate in the care of this patient. For questions regarding this report, please contact e number below. Gretchen Yoon MD G CT ORDERABLES CT Head wo Contrast (Generic) (11/30/2019 4:36 PM EDT) Anatomical Region Laterality Modality Head Computed Tomography Specimen (Source) Anatomical Location Collection Method / Collectio n Time Received Time / Laterality Volume Impressions 11/30/2019 5:[address]: Stable hemorrhage in the region of the l eft optic tract. CTA: Negative exam. No abnormal vasculat ure in the area of hemorrhage. Thank you for letting us participate in the care of this patient. For questions regarding this report, please contact e number below. ? Narrative 11/30/2019 5:04 PM EDT EXAMINATION: CT HEAD WO CONTRAST (GENERIC), CT ANGIOGRAM [place] CLINICAL HISTORY: Headache, intracranial hemorrhage suspected F/U on known ICH - assessing for propaga tion TECHNIQUE: CT head performed without intravenous co ntrast administration. CT angiogram [place] 65 cc Omnipaque 350 administered intrave nously after timing bolus. MIP images created on separate workstation. COMPARISON: CT head dated 11/30/2019 1026 hours FINDINGS: Head CT: Similar appearance of air-fluid level right maxillary antrum. There is mucosal thickening right greater than le ft maxillary antrum. Mucosal thickening left greater than rig ht ethmoid air cells and air-fluid level in the left frontal sinus similar to edwina or exam. There is stable appearance of hemorrhage projecting in the junction of the left mesial temporal lobe and basal ganglia i n the region of the left optic tract. This is stable when viewed on coronal im ages. No new hemorrhage seen. No gross mass effect. Similar appearance of small amount of edema adjacent to the hemorrhage. CT ANGIOGRAM: There is normal appearance of the intracranial portion of the vertebrobasilar system and posterior cir culation branches. There is a small amount of hard plaque a ssociated with the cavernous and supraclinoid portion ICA without narrowi ng. Dominant anterior circulation on the lef t with left ICA greater than right in size and dominant left A1 segment with s mall right A1 segment and patent anterior communicating artery. Normal appearance of the anterior circul ation branches. No focal stenosis, caliber change or ane urysm. There is no evidence of abnormal vessel or vascular nidus in the region of the focal hemorrhage. Procedure Note Angel Luis Lo MD - 11/30/2019Formatt ing of this note might be different from the original. EXAMINATION: CT HEAD WO CONTRAST (GENERI C), CT ANGIOGRAM [place] CLINICAL HISTORY: Headache, intracranial hemorrhage suspected F/U on known ICH - assessing for propaga tion TECHNIQUE: CT head performed without intravenous co ntrast administration. CT angiogram [place] 65 cc Omnipaque 350 administered intrave nously after timing bolus. MIP images created on separate workstation. COMPARISON: CT head dated 11/30/2019 1026 hours FINDINGS: Head CT: Similar appearance of air-fluid level right maxillary antrum. There is mucosal thickening right greater than le ft maxillary antrum. Mucosal thickening left greater than rig ht ethmoid air cells and air-fluid level in the left frontal sinus similar to edwnia or exam. There is stable appearance of hemorrhage projecting in the junction of the left mesial temporal lobe and basal ganglia i n the region of the left optic tract. This is stable when viewed on coronal im ages. No new hemorrhage seen. No gross mass effect. Similar appearance of small amount of edema adjacent to the hemorrhage. CT ANGIOGRAM: There is normal appearance of the intracranial portion of the vertebrobasilar system and posterior cir culation branches. There is a small amount of hard plaque a ssociated with the cavernous and supraclinoid portion ICA without narrowi ng. Dominant anterior circulation on the lef t with left ICA greater than right in size and dominant left A1 segment with s mall right A1 segment and patent anterior communicating artery. Normal appearance of the anterior circul ation branches. No focal stenosis, caliber change or ane urysm. There is no evidence of abnormal vessel or vascular nidus in the region of the focal hemorrhage. IMPRESSION Head CT: Stable hemorrhage in the region of the l eft optic tract. CTA: Negative exam. No abnormal vasculat ure in the area of hemorrhage. Thank you for letting us participate in the care of this patient. For questions regarding this report, please contact e number below. Electronically signed by: Angel Luis Barboza MD, [facility] ([phone]), at 11/30/2019 5:04 PM Gretchen Yoon MD IMG CT ORDERABLES EKG 12 Lead (11/30/2019 1:55 PM EDT) Component Value Ref Range Test Analysis Performed Pathologis t Method Time At Signature Ventricular rate 83 BPM MUSE SYSTEM Atrial Rate 83 BPM MUSE SYSTEM P-R Interval 124 ms MUSE SYSTEM QRS Duration 92 ms MUSE SYSTEM Q-T Interval 386 ms MUSE SYSTEM QTC Calculated 453 ms MUSE SYSTEM (Bezet) Calculated P Jackson 52 degrees MUSE SYSTEM Calculated R Jackson 5 degrees MUSE SYSTEM Calculated T Jackson -60 degrees MUSE SYSTEM INTERPRETATION Sinus rhythm Occasional Ned ature ventricular complexes and Premature atrial complexes MUSE SYSTEM Inferior infarct (cited on or before 29-NOV-2019) Abnormal ECG When compared with ECG of 30-NOV-2019 07:57, Premature atrial complexes are now Present Confirmed by Sumanth Akbar MD ([id number]) on 12/02/2019 8:39:30 AM Specimen Anatomical Collection Method Collection Time Receive d Time (Source) Location / / Volume Laterality 11/30/2019 1:55 PM 0 8:39 EDT AM EDT Gretchen Yoon MD ECG ORDERABLES Performing Organization Address City/State/ZIP Code Phon e Number MUSE SYSTEM ECHOCARDIOGRAM COMPLETE (11/30/2019 12:01 PM EDT) P athologist Signature EF 45 [facility]ART[facility] SYSTEM Anatomical Region Laterality Modality Other Specimen (Source) Anatomical Location Collection Method / Collectio n Time Received Time / Laterality Volume 11/30/2019 Narrative 11/30/2019 12:45 PM EDT Procedure: ?Transthoracic Echocardiogram Patient: ?RITA Corcoran ? (Age): 1945(74y) Med Rec#: ? [id number] ?Sex: ?M ? [place] [facility] [place]Ht / Wt: ??178(cm)/64(kg) Pt. Loc: ?[facility] ? BSA: ?1.8 Study Date: ?? 11/30/2019 ?Pt. Type: Inpatient Tape: ? Referring: GILMER Reading: Tello Mejia ([id number]) Pony Trimmer: Friend, Lolita Diagnosis: *ST elevation (STEMI) myocardial infarc tion involving right coronary artery (I21.11) BP: ? 102/58 SUMMARY: 1. The left ventricular chamber size is normal. Left ventricular wall thickness is normal. The quantitative le ft ventricular ejection fraction by biplane Orourke's method is 45%. Ther e are left ventricular segmental wall motion abnormalities present, as sh own in the diagram below. Doppler assessment is consistent with no rmal left sided filling pressure. 2. The right ventricle is normal in size . Right ventricular global systolic function is moderately reduced. Pulmonary artery hypertension could not be assessed due to inadequate tricuspid regurgitation jet. 3. The left atrium is moderately dilated . The right atrium is normal in size. 4. There is no hemodynamically significa nt valve disease. 5. See remainder of report for additiona l findings. 6. There is no prior study available for comparison. Findings ? : Left Ventricle: ? The left ventricul ar chamber size is normal. ?Left ventricular wall thickness is normal. ?There is no evidence of LVOT obstr uction. ?No ventricular septal defect is vi sualized. ?Global left ventricular systolic f unction is mildly reduced. ?The quantitative left ventricular ejection fraction by biplane Orourke's method is 45%. ?There are left ventricular segment al wall motion abnormalities present, as shown in the diagram below. ?Doppler assessment is consistent w ith normal left sided filling pressure. ?The ??basal inferolateral, mid ant erolateral, mid inferolateral, and apical inferior wall segments are hypoki netic (score 2). ?The ??basal inferior, and ??mid in ferior wall segments are akinetic (score 3). ?Overall wallmotion score index is ??1.50 Left Atrium: ? The left atrium is mo derately dilated.45.1ml/m2 ?No atrial septal defect is visuali zed. Right Ventricle: ? The right ventric le is normal in size. ?Right ventricular global systolic function is moderately reduced. ?The free wall of the right ventric le appears akinetic. ?Pulmonary artery hypertension coul d not be assessed due to inadequate tricuspid regurgitation jet. Right Atrium: ? The right atrium is normal in size. Aortic Valve: ? The aortic valve is tricuspid. ?The aortic valve leaflets are mild ly thickened. ?There is no evidence of aortic renetta ve stenosis. ?There is no evidence of aortic reg urgitation. Mitral Valve: ? The mitral valve alireza flets are mildly thickened. ?There is trace mitral regurgitatio n present. Tricuspid Valve: ? The tricuspid renetta ve leaflets are morphologically normal. ?There is trace tricuspid regurgita tion present. Pulmonic Valve: ? The pulmonic valve is not well visualized. Pericardium: ? The pericardium appea rs normal and there is no evidence of a pericardial effusion. Aorta: ? There is mild dilatation of the aortic root.3.7cm ?There is mild dilatation of the as cending aorta.3.8cm Pulmonary Artery: ? The main pulmona ry artery is not well visualized. Venous: ? The inferior vena cava rishabh ears dilated. ?There is less than 50% respiratory change in the inferior vena cava dimension consistent with elevated right atrial pressure. Misc: ? There is no hemodynamically significant valve disease. ?See remainder of report for additi onal findings. ?Two-dimensional echo, spectral Dop pler and color Doppler performed. Chambers 2D ?Value ?Units (Range) ? IVSd (2D) ? 0.8 ?cm ? LVPWd (2D) ?0.83 ? cm ? IVS:LVPW ratio (2D) 0.96 ? ratio ? RWT (2D) ?0.31 ? ratio ? RWT PW (2D) ? 0.32 ? ratio ? LVIDd (2D) ?5.19 ? cm ? LVIDs (2D) ?4.09 ? cm ? LVIDd (2D) index ?2.88 ? cm/m2 ? LVIDs (2D) index ?2.27 ? cm/m2 ? LV FS (2D) ?21.19 ?% ? EF Teichholz (2D) ?? 42.76 ?% ? Ao root diameter (2D3.7 ?cm (2.1 - 3.6) ? Ascending Ao ?3.8 ?cm (2 - 3.5) ? Volumes/Mass ?Value ?Units (Range) ? LA Area 4 CH ?23.6 ? cm2 (<21) ? LA ESV BP (A/L) inde45.05 ? ml/m2 ? RA AREA 4CH ? 14.5 ? cm2 ? LV ESV SP 4CH (MOD) 50.02 ? ml ? LV ESV SP 2CH (MOD) 60.52 ? ml ? LV EDV BP ? 105.01 ? ml ? LV ESV BP ? 57.57 ?ml ? LV EDV BP index ? 58.3 ? ml/m2 ? LV ESV BP index ? 31.96 ?ml/m2 ? BP EF (MOD) ? 45.18 ?% ? LV mass (2D) ?147.46 ? g ? LV mass (2D) index ??81.87 ?g/m2 ? Diastolic/Systolic Function ?Value ?Units (Range) ? MV E-wave Vmax ?0.58 ? m/sec ? MV deceleration bvas433.05 ? m sec ? MV A-wave Vmax ?0.74 ? m/sec ? MV E:A ratio ?0.78 ? ratio ? LV septal e' Vmax ?? 0.07 ? m/sec ? LV lateral e' Vmax ??0.11 ? m/sec ? LV average e' Vmax ??0.09 ? m/sec ? LV E:e' septal ratio8.25 ? ratio ? LV E:e' lateral rati5.25 ? ratio ? LV average E:e' rati6.41 ? ratio ? Wall Motion: Segment Name ?Rest ? Base-Anteroseptal ?? Normal ? Base-Anterior ? Normal ? Base-Anterolateral ??Normal ? Base-Posterolateral Hypokinetic ? Base-Inferior ? Akinetic ? Base-Inferoseptal ?? Normal ? Mid-Anteroseptal ?Normal ? Mid-Anterior ?Normal ? Mid-Anterolateral ?? Hypokinetic ? Mid-Posterolateral ??Hypokinetic ? Mid-Inferior ?Akinetic ? Mid-Inferoseptal ?Normal ? [place]-Septal ? Normal ? [place]-Anterior ? Normal ? [place]-Lateral ?Normal ? [place]-Inferior ? Hypokinetic ? [place]-Tip ?Normal ? This report has been electronically sign ed by: _ Tello Mejia MD ? 11/30/2019 12: 45:27 Images reviewed and interpretation [facility] Procedure Note Tello Mejia MD - 11/30/2019Formatti ng of this note might be different from the original. Procedure: Transthoracic Echocardiogram Patient: RITA ACOSTA(Age): [birth year](74y) Med Rec#: [id number] Sex: M [place] [facility] [place]t / Wt: 178(cm)/64(kg) Pt. Loc: [facility] BSA: 1.8 Study Date: 11/30/2019 Pt. Type: Inpatie nt Tape: Referring: DONAYMICMUNIRAJ Reading: Tello Mejia ([id number]) Pony Trimmer: Lolita Prado Diagnosis: *ST elevation (STEMI) myocardial infarc tion involving right coronary artery (I21.11) BP: 102/58 SUMMARY: 1. The left ventricular chamber size is normal. Left ventricular wall thickness is normal. The quantitative le ft ventricular ejection fraction by biplane Orourke's method is 45%. Ther e are left ventricular segmental wall motion abnormalities present, as sh own in the diagram below. Doppler assessment is consistent with no rmal left sided filling pressure. 2. The right ventricle is normal in size . Right ventricular global systolic function is moderately reduced. Pulmonary artery hypertension could not be assessed due to inadequate tricuspid regurgitation jet. 3. The left atrium is moderately dilated . The right atrium is normal in size. 4. There is no hemodynamically significa nt valve disease. 5. See remainder of report for additiona l findings. 6. There is no prior study available for comparison. Findings : Left Ventricle: The left ventricular chaka mber size is normal. Left ventricular wall thickness is norm al. There is no evidence of LVOT obstructio n. No ventricular septal defect is visuali zed. Global left ventricular systolic functi on is mildly reduced. The quantitative left ventricular eject ion fraction by biplane Orourke's method is 45%. There are left ventricular segmental wa ll motion abnormalities present, as shown in the diagram below. Doppler assessment is consistent with n ormal left sided filling pressure. The basal inferolateral, mid anterolate ral, mid inferolateral, and apical inferior wall segments are hypoki netic (score 2). The basal inferior, and mid inferior wa ll segments are akinetic (score 3). Overall wallmotion score index is 1.50 Left Atrium: The left atrium is moderate ly dilated.45.1ml/m2 No atrial septal defect is visualized. Right Ventricle: The right ventricle is normal in size. Right ventricular global systolic funct ion is moderately reduced. The free wall of the right ventricle ap pears akinetic. Pulmonary artery hypertension could not be assessed due to inadequate tricuspid regurgitation jet. Right Atrium: The right atrium is normal in size. Aortic Valve: The aortic valve is tricus pid. The aortic valve leaflets are mildly th ickened. There is no evidence of aortic valve st enosis. There is no evidence of aortic regurgit ation. Mitral Valve: The mitral valve leaflets are mildly thickened. There is trace mitral regurgitation pre sent. Tricuspid Valve: The tricuspid valve alireza flets are morphologically normal. There is trace tricuspid regurgitation present. Pulmonic Valve: The pulmonic valve is no t well visualized. Pericardium: The pericardium appears nor mal and there is no evidence of a pericardial effusion. Aorta: There is mild dilatation of the a ortic root.3.7cm There is mild dilatation of the ascendi ng aorta.3.8cm Pulmonary Artery: The main pulmonary art derrell is not well visualized. Venous: The inferior vena cava appears d ilated. There is less than 50% respiratory miles ge in the inferior vena cava dimension consistent with elevated right atrial pressure. Misc: There is no hemodynamically signif icant valve disease. See remainder of report for additional findings. Two-dimensional echo, spectral Doppler and color Doppler performed. Chambers 2D Value Units (Range) IVSd (2D) 0.8 cm LVPWd (2D) 0.83 cm IVS:LVPW ratio (2D) 0.96 ratio RWT (2D) 0.31 ratio RWT PW (2D) 0.32 ratio LVIDd (2D) 5.19 cm LVIDs (2D) 4.09 cm LVIDd (2D) index 2.88 cm/m2 LVIDs (2D) index 2.27 cm/m2 LV FS (2D) 21.19 % EF Teichholz (2D) 42.76 % Ao root diameter (2D3.7 cm (2.1 - 3.6) Ascending Ao 3.8 cm (2 - 3.5) Volumes/Mass Value Units (Range) LA Area 4 CH 23.6 cm2 (<21) LA ESV BP (A/L) inde45.05 ml/m2 RA AREA 4CH 14.5 cm2 LV ESV SP 4CH (MOD) 50.02 ml LV ESV SP 2CH (MOD) 60.52 ml LV EDV BP 105.01 ml LV ESV BP 57.57 ml LV EDV BP index 58.3 ml/m2 LV ESV BP index 31.96 ml/m2 BP EF (MOD) 45.18 % LV mass (2D) 147.46 g LV mass (2D) index 81.87 g/m2 Diastolic/Systolic Function Value Units (Range) MV E-wave Vmax 0.58 m/sec MV deceleration cpyo522.05 msec MV A-wave Vmax 0.74 m/sec MV E:A ratio 0.78 ratio LV septal e' Vmax 0.07 m/sec LV lateral e' Vmax 0.11 m/sec LV average e' Vmax 0.09 m/sec LV E:e' septal ratio8.25 ratio LV E:e' lateral rati5.25 ratio LV average E:e' rati6.41 ratio Wall Motion: Segment Name Rest Base-Anteroseptal Normal Base-Anterior Normal Base-Anterolateral Normal Base-Posterolateral Hypokinetic Base-Inferior Akinetic Base-Inferoseptal Normal Mid-Anteroseptal Normal Mid-Anterior Normal Mid-Anterolateral Hypokinetic Mid-Posterolateral Hypokinetic Mid-Inferior Akinetic Mid-Inferoseptal Normal Carlisle-Septal Normal [place]-Anterior Normal [place]-Lateral Normal [place]-Inferior Hypokinetic [place]-Tip Normal This report has been electronically sign ed by: _ Tello Mejia MD 11/30/2019 12:45:27 Images reviewed and interpretation rafaela devin [facility] Cardiac Ultrasound Laboratory Gretchen Yoon MD ECHO ORDERABLES CT Head wo Contrast (Generic) (11/30/2019 10:41 AM EDT) Anatomical Region Laterality Modality Head Computed Tomography Specimen (Source) Anatomical Location Collection Method / Collectio n Time Received Time / Laterality Volume Impressions 11/30/2019 12:04 PM EDT Focal hemorrhage with small amount of adjacent edema projecting in the region of the left optic tract. Thank you for letting us participate in the care of this patient. For questions regarding this report, please contact e number below. ? Electronically signed by: Angel Luis Barboza MD, [facility] ([phone]), at 11/30/2019 12:04 PM Narrative 11/30/2019 12:04 PM EDT EXAMINATION: CT HEAD WO CONTRAST (GENERIC) CLINICAL HISTORY: Neuro deficit, acute, stroke suspected Left sided neglect TECHNIQUE: CT head performed without intravenous co ntrast administration. COMPARISON: None FINDINGS: Review of bone windows demonstrates an a ir-fluid level in the right maxillary antrum. There is mild mucosal thickening in the ethmoid air cells, the left frontoethmoidal recess and the left fron juan sinus. Mastoid air cells middle ear cavities ar e clear. No lytic or blastic disease. Skull base soft tissues and orbits are u nremarkable. There is a focus of high attenuation pro jecting in the left medial temporal lobe/caudal basal ganglia in the region of the left optic tract with a small amount of the adjacent edema characteriz ed by low attenuation. This is best seen on image 57 of series 3 No additional parenchymal hemorrhage is seen. No cortical infarctions. No gross mass effect, midline shift or extra-axia l fluid collection. Ventricles are normal in size.. Procedure Note Angel Luis Lo MD - 11/30/2019Formatt ing of this note might be different from the original. EXAMINATION: CT HEAD WO CONTRAST (GENERI C) CLINICAL HISTORY: Neuro deficit, acute, stroke suspected Left sided neglect TECHNIQUE: CT head performed without intravenous co ntrast administration. COMPARISON: None FINDINGS: Review of bone windows demonstrates an a ir-fluid level in the right maxillary antrum. There is mild mucosal thickening in the ethmoid air cells, the left frontoethmoidal recess and the left fron juan sinus. Mastoid air cells middle ear cavities ar e clear. No lytic or blastic disease. Skull base soft tissues and orbits are u nremarkable. There is a focus of high attenuation pro jecting in the left medial temporal lobe/caudal basal ganglia in the region of the left optic tract with a small amount of the adjacent edema characteriz ed by low attenuation. This is best seen on image 57 of series 3 No additional parenchymal hemorrhage is seen. No cortical infarctions. No gross mass effect, midline shift or extra-axia l fluid collection. Ventricles are normal in size.. IMPRESSION Focal hemorrhage with small amount of ad jacent edema projecting in the region of the left optic tract. Thank you for letting us participate in the care of this patient. For questions regarding this report, please contact e number below. Gretchen Yoon MD IMG CT ORDERABLES Magnesium (11/30/2019 8:30 AM EDT) athologist [facility] Magnesium 0.88 0.69 - 1.07 [facility] mmol/L [facility] Specimen Anatomical Collection Method Collection Time Receive d Time (Source) Location / / Volume Laterality Blood specimen Venous Draw / 11/30/2019 8:30 AM 2019 8:37 (specimen) Unknown EDT AM EDT Resulting Agency Comment Spec In Lab Rossy Winn MD CHEMISTRY ORDERABLES Performing Organization Address City/[facility]/ZIP Code [place] [address] (ABNORMAL) CK (11/30/2019 8:30 AM EDT) athologist [facility] CK, Total 1,645 (H) 0 - 200 [facility] Specimen Anatomical Collection Method Collection Time Receive d Time (Source) Location / / Volume Laterality Blood specimen 11/30/2019 8:30 AM 020 8:32 (specimen) EDT AM EDT Resulting Agency Comment Spec In Lab Gretchen Yoon MD CHEMISTRY ORDERABLES Performing Organization Address City/[facility] [place] [address] (ABNORMAL) Troponin (11/30/2019 8:30 AM EDT) athologist [facility] Troponin-T 8.04 (H) 0.00 - MELINA DOV 0.00 ng/mL [facility] Comment: result rechecked-rancho The 99th percentile for Troponin T is le ss than 0.01 ng/mL, any detectable cTnT concentration using this assay should be considered elevated. According to the third universal definit ion of myocardial infarction the following criteria with a clinical prese ntation consistent with acute myocardial ischemia meets the diagnosis for a myocardial infarction ([place]). Detection of a rise and/or fall of cTnT, with at least one value greater than the 99th percentile (> or = 0.01) and wi th at least one of the following ?? Symptoms of ischemia ?? New or presumed new significant ST-se gment-T wave (ST-T) changes or new left bundle branch block (LBBB) ?? Development of pathologic Q waves in the ECG ?? Imaging evidence of new loss of viabl e myocardium or new regional wall motion abnormality ?? Identification of an intracoronary th rombus by angiography or autopsy Samples for cTnT testing should be obtai alta serially upon first assessment and again 3 to 6 hours later. If the clinica l suspicion is high and previous samples have been negative an additional sample may be indicated. Reference: [place] Definition of Myocardial Infarction. Journal of the [place] [employer] 2012;60:1581-98 Specimen Anatomical Collection Method Collection Time Receive d Time (Source) Location / / Volume Laterality Blood specimen 11/30/2019 8:30 AM 020 8:32 (specimen) EDT AM EDT Resulting Agency Comment Spec In Lab Gretchen Yoon MD CHEMISTRY ORDERABLES Performing Organization Address City/State/ZIP Code Phon e Number [place] [id number] EKG 12 Lead (11/30/2019 7:57 AM EDT) Component Value Ref Range Test Analysis Performed Pathologis t Method Time At Signature Ventricular rate 64 BPM MUSE SYSTEM Atrial Rate 64 BPM MUSE SYSTEM P-R Interval 132 ms MUSE SYSTEM QRS Duration 78 ms MUSE SYSTEM Q-T Interval 420 ms MUSE SYSTEM QTC Calculated 433 ms MUSE SYSTEM (Bezet) Calculated P Jackson 28 degrees MUSE SYSTEM Calculated R Jackson 7 degrees MUSE SYSTEM Calculated T Jackson -33 degrees MUSE SYSTEM INTERPRETATION Sinus rhythm with marked sin us arrhythmia Occasional Premature ventricular complexes MUSE SYSTEM Inferior infarct (cited on or before 29-NOV-2019) Abnormal ECG When compared with ECG of 29-NOV-2019 15:58, Premature ventricular complexes are now Present Premature atrial complexes are no longer Present Inverted T waves have replac ed nonspecific T wave abnormality in Inferior leads Confirmed by MD Charlene, Pepe Dawn ([id number]) on 11/30/2019 11:37:32 AM Specimen Anatomical Collection Method Collection Time Receive d Time (Source) Location / / Volume Laterality 11/30/2019 7:57 AM 0 EDT 11:37 AM EDT Gretchen Yoon MD ECG ORDERABLES Performing Organization Address City/State/ZIP Code Phon e Number MUSE SYSTEM (ABNORMAL) BMP w/fasting Glucose (11/30/2019 2:15 AM EDT) athologist Signature Glucose 147 (H) 65 - 99 [facility] Fasting mg/dL [facility] Comment: ?Fasting* Glucose Interpretive C riteria Normal ?65-99 mg/dL Impaired Fasting glucose ?100-125 mg/dL Consistent with Diabetes Mellitus ? >or= 126 mg/dL *Fasting is defined as no caloric intake for at least 8 hours In the absence of unequivocal hypergly cemia a plasma glucose value of >or= 126 mg/dL should be repeated on a subseq uent day. Diagnosis and Classification of Diabetes Mellitus, Position Statement from the [place] [employer]. ??Diabete s Care, Volume 33, Supplement 1, Jul 2009 BUN 13 10 - 20 mg/dL [facility] Creatinine 0.90 0.80 - 1.50 mg/dL [facility] Sodium 135 135 - 145 mmol/L [facility] Potassium 3.9 3.5 - 5.0 mmol/L [facility] Comment: Please note: ??Patients with WBC >100,00 0 may have falsely elevated Potassium levels. ??For accurate Potassium quantif ication in these patients send serum separator tube (gold top) for subsequent determinations. ??Contact the Clinical Chemistry Laboratory if there are any qu estions. Chloride 108 (H) 98 - 107 mmol/L [facility] CO2 16 (L) 22 - 31 mmol/L [facility] Anion Gap 11 5 - 15 mmol/L [facility] Calcium 7.5 (L) 8.5 - 10.5 mg/dL [facility] Estimated GFR 84 >=60 mL/min/1.73 m?? [facility] Comment: The eGFR was calculated using the CKD-EP I equation. As with all creatinine based estimates of kidney function, eGFR values calculated with the CKD-EPI equation are not accurate in patients wi th acute kidney failure, extremes of body mass or the acutely ill. [email or web address] eGFR 98 >=60 mL/min/1.73 m?? [facility] Comment: The eGFR was calculated using the CKD-EP I equation. As with all creatinine based estimates of kidney function, eGFR values calculated with the CKD-EPI equation are not accurate in patients wi th acute kidney failure, extremes of body mass or the acutely ill. http://[employer] [facility] Specimen Anatomical Collection Method Collection Time Receive d Time (Source) Location / / Volume Laterality Blood specimen 11/30/2019 2:15 AM 020 2:29 (specimen) EDT AM EDT Resulting Agency Comment Spec In Lab Gretchen Yoon MD CHEMISTRY ORDERABLES Performing Organization Address City/State/ZIP Code Phon e Number [place] [id number] LAB[address] (ABNORMAL) Hemogram (11/30/2019 2:15 AM EDT) Analysis Performed At Patho logist Time Signature WBC 11.2 (H) 4.0 - 9.5 [facility] x10(3)/[facility] LABORATORY RBC 3.83 (L) 4.58 - [facility] 5.54 [facility] x10(6)/[facility] LABORATORY Hemoglobin 11.4 (L) 13.7 - [facility] 16.5 gm/dL [facility] LABORATORY Hematocrit 35.2 (L) 40.5 - [facility] 48.5 % [facility] LABORATORY MCV 91.9 82.9 - [facility] 93.1 fL [facility] LABORATORY MCH 29.8 27.5 - [facility] 32.1 pg [facility] LABORATORY MCHC 32.4 32.0 - MELINA MONAE 35.7 gm/dL [facility] LABORATORY Platelets 122 (L) 145 - 357 MELINA MARSHDOV x10(3)/[facility] LABORATORY RDWSD 49.8 (H) 36.0 - MELINA MONAE 45.0 [facility] LABORATORY RDWCV 14.8 (H) 11.4 - M[place]INA [place] 13.8 % [facility] LABORATORY MPV 12.1 7.6 - 12.9 MELINA MONAE [facility] LABORATORY nRBC % Auto 0.0 % [facility] LABORATORY nRBC Abs Auto 0.000 0.000 - MEL[place] MARSHDOV 0.000 [facility] x10(3)/[facility] LABORATORY Specimen Anatomical Collection Method Collection Time Receive d Time (Source) Location / / Volume Laterality Blood specimen 11/30/2019 2:15 AM 020 2:29 (specimen) EDT AM EDT Resulting Agency Comment Spec In Lab Gretchen Yoon MD HEMATOLOGY ORDERABLES Performing Organization Address City/State/ZIP [place] [address] (ABNORMAL) CK (11/30/2019 2:15 AM EDT) athologist [facility] CK, Total 1,969 (H) 0 - 200 [facility] DOV unit/L [facility] LABORATORY Specimen Anatomical Collection Method Collection Time Receive d Time (Source) Location / / Volume Laterality Blood specimen 11/30/2019 2:15 AM 020 2:29 (specimen) EDT AM EDT Resulting Agency Comment Spec In Lab Gretchen Yoon MD CHEMISTRY ORDERABLES Performing Organization Address City/State/ZIP [place] [address] (ABNORMAL) Troponin (11/30/2019 2:15 AM EDT) athologist [facility] Troponin-T 11.73 (H) 0.00 - MELINA MONAE 0.00 ng/mL [facility] LABORATORY Comment: result rechecked-slw The 99th percentile for Troponin T is le ss than 0.01 ng/mL, any detectable cTnT concentration using this assay should be considered elevated. According to the third universal definit ion of myocardial infarction the following criteria with a clinical prese ntation consistent with acute myocardial ischemia meets the diagnosis for a myocardial infarction ([place]). Detection of a rise and/or fall of cTnT, with at least one value greater than the 99th percentile (> or = 0.01) and wi th at least one of the following ?? Symptoms of ischemia ?? New or presumed new significant ST-se gment-T wave (ST-T) changes or new left bundle branch block (LBBB) ?? Development of pathologic Q waves in the ECG ?? Imaging evidence of new loss of viabl e myocardium or new regional wall motion abnormality ?? Identification of an intracoronary th rombus by angiography or autopsy Samples for cTnT testing should be obtai alta serially upon first assessment and again 3 to 6 hours later. If the clinica l suspicion is high and previous samples have been negative an additional sample may be indicated. Reference: [place] Definition of Myocardial Infarction. Journal of the [place] [employer] 2012;60:1581-98 result rechecked- The 99th percentile for Troponin T is le ss than 0.01 ng/mL, any detectable cTnT concentration using this assay should be considered elevated. According to the third universal definit ion of myocardial infarction the following criteria with a clinical prese ntation consistent with acute myocardial ischemia meets the diagnosis for a myocardial infarction ([place]). Detection of a rise and/or fall of cTnT, with at least one value greater than the 99th percentile (> or = 0.01) and wi th at least one of the following ?? Symptoms of ischemia ?? New or presumed new significant ST-se gment-T wave (ST-T) changes or new left bundle branch block (LBBB) ?? Development of pathologic Q waves in the ECG ?? Imaging evidence of new loss of viabl e myocardium or new regional wall motion abnormality ?? Identification of an intracoronary th rombus by angiography or autopsy Samples for cTnT testing should be obtai alta serially upon first assessment and again 3 to 6 hours later. If the clinica l suspicion is high and previous samples have been negative an additional sample may be indicated. Reference: [place] Definition of Myocardial Infarction. Journal of the [place] [employer] 2012;60:1581-98 Corrected from 11.73 ng/ml [HI] on 11/29 3:11:51 EDT by Debi Hawley Specimen Anatomical Collection Method Collection Time Receive d Time (Source) Location / / Volume Laterality Blood specimen 11/30/2019 2:15 AM 020 2:29 (specimen) EDT AM EDT Resulting Agency Comment Spec In Lab Gretchen Yoon MD CHEMISTRY ORDERABLES Performing Organization Address City/[facility]/ZIP Code Phon e Number [address] LDL Cholesterol, Direct (11/30/2019 2:15 AM EDT) P athologist Signature LDL Chol 156 mg/dL [facility] LABORATORY Comment: Lowest Risk: <100 mg/dL Lower Risk: 100-129 mg/dL Borderline High Risk: 130-159 mg/dL High Risk: 160-189 mg/dL Very High Risk: >cb=081 mg/dL Specimen Anatomical Collection Method Collection Time Receive d Time (Source) Location / / Volume Laterality Blood specimen 11/30/2019 2:15 AM 020 2:29 (specimen) EDT AM EDT Resulting Agency Comment Spec In Lab Gretchen Yoon MD CHEMISTRY ORDERABLES Performing Organization Address City/[facility]/ZIP Code Phon e Number [address] (ABNORMAL) Hemoglobin A1c (11/30/2019 2:15 AM EDT) Analysis Performed At Patho logist Time Signature Hemoglobin A1C 6.3 (H) 4.3 - 5.6 [facility] LABORATORY Comment: Reference Range: 4.3 - 5.6% 5.7 - 6.4% - Increased Risk of Developin g Diabetes Mellitus >= 6.5% - Consistent with diagnosis of D iabetes Mellitus In the absence of hyperglycemia (i.e. pl asma glucose > 200 mg/dL) or classic symptoms of hyperglycemia a repeat measu rement of HbA1c should be performed on a separate sample to confirm the diagnos is. Diagnosis and Classification of Diabetes Mellitus, Diabetes Care 2013; 36: Suppl. 1, T16-66 Est Avg Gluc See note mg/dL [facility] LABORATORY Comment: Estimated Average Glucose not appropriat e for patients over 70 years of age. eAG equivalents for HbA1c percentages: HbA1c(%) ?eAG(mg/dL) 6.0 ?126 6.5 ?140 7.0 ?154 7.5 ?169 8.0 ?183 8.5 ?197 9.0 ?212 9.5 ?226 10.0 ? 240 Limitations: The eAG calculation has not been validated on women, individuals below 18 years old and above 70 years old, and individuals with hemoglobinopathies. Additional resources are available on [facility] ADA website. Kiko CARBAJAL, Jenn J, Silas R, et al. ??Tr anslating the A1C assay into estimated average glucose values. ??Diabetes Care 2008:31(8):4264-6053. Specimen Anatomical Collection Method Collection Time Receive d Time (Source) Location / / Volume Laterality Blood specimen 11/30/2019 2:15 AM 020 2:29 (specimen) EDT AM EDT Resulting Agency Comment Spec In Lab Gretchen Yoon MD CHEMISTRY ORDERABLES Performing Organization Address City/State/[place] [address] Lipid Panel (Reflex Direct LDL) (11/30/2019 2:15 AM EDT) athologist Signature Chol, Total 195 mg/dL [facility] LABORATORY Comment: Lower Risk: <200 mg/dL Average Risk: 200-239 mg/dL Higher Risk: >xg=451 mg/dL Triglycerides 93 mg/dL [facility] LABORATORY Comment: Average Risk/Lower Risk: <150 mg/dL Borderline High Risk: 150-199 mg/dL High Risk: 200-499 mg/dL Very High Risk: >tm=225 mg/dL HDL 32 mg/dL [facility] LABORATORY Comment: Males: ?? Higher Risk: <40 mg/dL Females: ?? HIgher Risk: <50 mg/dL LDL Cholesterol 144 mg/dL [facility] LABORATORY Comment: Lowest Risk: <100 mg/dL Lower Risk: 100-129 mg/dL Borderline High Risk: 130-159 mg/dL High Risk: 160-189 mg/dL Very High Risk: >sp=949 mg/dL Chol/HDL Ratio 6.1 ratio [facility] LABORATORY Lipid Interpretation See Note [facility] LABORATORY Comment: Lipid management should be guided by a p atient? s ASCVD risk, goals and preferences. ACC/AHA Guidelines recommend high intens ity statin if clinical ASCVD or LDL greater than or equal to 190 mg/dL. http://[employer]/PLI-MEG-Qgshtvcuh Adults aged 40-75 with LDL 70-189 mg/dL should have their 10 year ASCVD risk estimated with the ACC/AHA ASCVD risk es timator http://tools.acc.org/BMSLU-Awtu-Glubvetu r/ Statin should be discussed if risk great er than or equal to 7.5% in non-diabetics. With diabetes, moderate i ntensity statin is recommended if risk less than 7.5%, high intensity if risk g reater than or equal to 7.5%. Annual lipid monitoring on statins is no t necessary. Evaluate secondary causes of Triglycerid es greater than 500 mg/dL or LDL greater than 190 mg/dL: See table 6 of A CC/AHA Guideline. Lifestyle modification is a critical com ponent of ASCVD risk reduction. Specimen Anatomical Collection Method Collection Time Receive d Time (Source) Location / / Volume Laterality Blood specimen 11/30/2019 2:15 AM 020 2:29 (specimen) EDT AM EDT Resulting Agency Comment Spec In Lab Gretchen Yoon MD CHEMISTRY ORDERABLES Performing Organization Address City/State/[place] [address] (ABNORMAL) CK (11/29/2019 6:35 PM EDT) athologist Signature CK, Total 2,780 (H) 0 - 200 [facility] unit/L [facility] LABORATORY Specimen Anatomical Collection Method Collection Time Receive d Time (Source) Location / / Volume Laterality Blood specimen 11/29/2019 6:35 PM 020 6:53 (specimen) EDT PM EDT Resulting Agency Comment Spec In Lab Gretchen Yoon MD CHEMISTRY ORDERABLES Performing Organization Address City/State/[place] [address] (ABNORMAL) Troponin (11/29/2019 6:35 PM EDT) athologist Signature Troponin-T 17.60 (H) 0.00 - [facility] 0.00 ng/mL [facility] LABORATORY Comment: result rechecked-az The 99th percentile for Troponin T is le ss than 0.01 ng/mL, any detectable cTnT concentration using this assay should be considered elevated. According to the third universal definit ion of myocardial infarction the following criteria with a clinical prese ntation consistent with acute myocardial ischemia meets the diagnosis for a myocardial infarction ([place]). Detection of a rise and/or fall of cTnT, with at least one value greater than the 99th percentile (> or = 0.01) and wi th at least one of the following ?? Symptoms of ischemia ?? New or presumed new significant ST-se gment-T wave (ST-T) changes or new left bundle branch block (LBBB) ?? Development of pathologic Q waves in the ECG ?? Imaging evidence of new loss of viabl e myocardium or new regional wall motion abnormality ?? Identification of an intracoronary th rombus by angiography or autopsy Samples for cTnT testing should be obtai alta serially upon first assessment and again 3 to 6 hours later. If the clinica l suspicion is high and previous samples have been negative an additional sample may be indicated. Reference: [place] Definition of Myocardial Infarction. Journal of the [place] [employer] 2012;60:1581-98 Specimen Anatomical Collection Method Collection Time Receive d Time (Source) Location / / Volume Laterality Blood specimen 11/29/2019 6:35 PM 020 6:53 (specimen) EDT PM EDT Resulting Agency Comment Spec In Lab Gretchen Yoon MD CHEMISTRY ORDERABLES Performing Organization Address City/State/ZIP Code Phon e Number [place] [phone]OS[address] LAB[address]ORY Drive EKG 12 Lead (11/29/2019 3:58 PM EDT) [facility] gist Method Time Signature Ventricular rate 73 BPM MUSE SYSTEM Atrial Rate 73 BPM MUSE SYSTEM P-R Interval 152 ms MUSE SYSTEM QRS Duration 84 ms MUSE SYSTEM Q-T Interval 404 ms MUSE SYSTEM QTC Calculated 445 ms MUSE SYSTEM (Bezet) Calculated P Jackson 50 degrees MUSE SYSTEM Calculated R Jackson -4 degrees MUSE SYSTEM Calculated T Jackson 19 degrees MUSE SYSTEM INTERPRETATION Sinus rhythm with Premature atrial complexes MUSE SYSTEM Possible Inferior infarct (cited on or before 29-NOV-2019) Abnormal ECG When compared with ECG of 29-NOV-2019 11:38, Premature atrial complexes are now Present Confirmed by MD Charlene, Pepe Dawn () on 11/30/2019 10:48:52 AM Specimen Anatomical Collection Method Collection Time Receive d Time (Source) Location / / Volume Laterality 11/29/2019 3:58 PM 0 EDT 10:48 AM EDT Juventino Concepcion MD ECG ORDERABLES Performing Organization Address City/State/ZIP Code Phon e Number MUSE SYSTEM XR Chest One View (11/29/2019 3:08 PM EDT) Anatomical Region Laterality Modality Chest N/A Digital Radiography Specimen (Source) Anatomical Location Collection Method / Collectio n Time Received Time / Laterality Volume Addenda Addendum by Estefani Harris MD on 2019 5:11 PM EDT --------ADDENDUM #1-------- I Dr. Harris discussed the result of an equ ivocal tiny right pneumothorax with Dr. Eric on 11/29/2019 4:55 PM and verified that (s)he understood these results. Thank you for letting us participate in the care of this patient. For questions regarding this report, please contact e number below. ? Electronically signed by: Devin Solis [facility] ([phone]), at 11/29/2019 5:06 PM --------ORIGINAL REPORT -------- EXAMINATION: XR CHEST ONE VIEW CLINICAL HISTORY: stemi (as entered by o [facility] in the order requisition) TECHNIQUE: Portable AP view of the chest. COMPARISON: None FINDINGS: There is a right internal jugular pulmon kayy arterial catheter with the tip projecting over the expected location of the distal interlobar artery. Normal cardiac mediastinal and hilar silhouette s. Ill-defined retrocardiac opacities bilaterally. No pleural collections. Equ ivocal tiny right apical pneumothorax. The left lung apex is excluded from the imaged [id number]. IMPRESSION: 1. ??New right internal jugular pulmonar y arterial catheter with its tip projecting over the expected location of the distal interlobar artery. 2. ??Equivocal tiny right apical pneumot horax. 3. ??Atelectasis, aspiration, or develop ing consolidation in the bilateral retrocardiac area. At the time of this report, radiology patricio koch is attempting to reach the inpatient team to discuss the findings. Thank you for letting us participate in the care of this patient. For questions regarding this report, please contact e number below. ? Electronically signed by: Devin Solis [facility] ([phone]), at 11/29/2019 4:36 PM Impressions 11/29/2019 4:36 PM EDT 1. ??New right internal jugular pulmonary arterial catheter with its tip projecting over the expected location of the distal interlobar artery. 2. ??Equivocal tiny right apical pneumot horax. 3. ??Atelectasis, aspiration, or develop ing consolidation in the bilateral retrocardiac area. At the time of this report, radiology patricio koch is attempting to reach the inpatient team to discuss the findings. Thank you for letting us participate in the care of this patient. For questions regarding this report, please contact e number below. ? Electronically signed by: Devin Solis [facility] ([phone]), at 11/29/2019 4:36 PM Narrative 11/29/2019 4:36 PM EDT EXAMINATION: XR CHEST ONE VIEW CLINICAL HISTORY: stemi (as entered by o rdering provider in the order requisition) TECHNIQUE: Portable AP view of the chest. COMPARISON: None FINDINGS: There is a right internal jugular pulmon kayy arterial catheter with the tip projecting over the expected location of the distal interlobar artery. Normal cardiac mediastinal and hilar silhouette s. Ill-defined retrocardiac opacities bilaterally. No pleural collections. Equ ivocal tiny right apical pneumothorax. The left lung apex is excluded from the imaged [id number]. Procedure Note Estefani Harris MD - 11/29/2019Formattin g of this note might be different from the original. EXAMINATION: XR CHEST ONE VIEW CLINICAL HISTORY: stemi (as entered by o rdering provider in the order requisition) TECHNIQUE: Portable AP view of the chest. COMPARISON: None FINDINGS: There is a right internal jugular pulmon kayy arterial catheter with the tip projecting over the expected location of the distal interlobar artery. Normal cardiac mediastinal and hilar silhouette s. Ill-defined retrocardiac opacities bilaterally. No pleural collections. Equ ivocal tiny right apical pneumothorax. The left lung apex is excluded from the imaged [id number]. IMPRESSION 1. New right internal jugular pulmonary arterial catheter with its tip projecting over the expected location of the distal interlobar artery. 2. Equivocal tiny right apical pneumotho rax. 3. Atelectasis, aspiration, or developin g consolidation in the bilateral retrocardiac area. At the time of this report, radiology patricio koch is attempting to reach the inpatient team to discuss the findings. Thank you for letting us participate in the care of this patient. For questions regarding this report, please contact e number below. Juventino Concepcion MD IMG DX ORDERABLES (ABNORMAL) Differential, Automated (11/29/2019 2:32 PM EDT) [facility] Method Time Signature Neutrophils % 83.8 % [facility] LABORATORY Neutr Abs (ANC) 12.12 (H) 1.70 - [facility] 6.10 [facility] x10(3)/[facility] LABORATORY Lymphocytes % 9.1 % [facility] LABORATORY Lymphocytes Abs 1.3 0.9 - 3.2 [facility] x10(3)/[facility] LABORATORY Monocytes % 6.2 % [facility] LABORATORY Monocyte Abs 0.9 0.3 - 0.9 [facility] x10(3)/[facility] LABORATORY Eosinophils % 0.0 % [facility] LABORATORY Eosinophils Abs 0.0 0.0 - 0.4 [facility] x10(3)/[facility] LABORATORY Basophils % 0.3 % [facility] LABORATORY Basophils Abs 0.0 0.0 - 0.1 [facility] x10(3)/[facility] LABORATORY Immature Gran % 0.60 % [facility] LABORATORY Comment: Immature granulocytes(IG's)percentage an d absolute count will include metamyelocytes, myelocytes, and promyelo cytes. Blood smears from CBCs yielding IG's will be scanned manually for concor dance. If this scan disagrees with the automated IG or if promyelocytes are not ed, a manual differential will be performed. Pita Gran Abs 0.08 (H) 0.00 - 0.04 x10(3)/[facility] LABORATORY Specimen Anatomical Collection Method Collection Time Receive d Time (Source) Location / / Volume Laterality Blood specimen 11/29/2019 2:32 PM 020 2:55 (specimen) EDT PM EDT Resulting Agency Comment Spec In Lab Darrell Glasgow MD HEMATOLOGY ORDERABLES Performing Organization Address City/State/[place] [address] (ABNORMAL) Hemogram (11/29/2019 2:32 PM EDT) Analysis Performed At Patho logist Time Signature WBC 14.5 (H) 4.0 - 9.5 [facility] x10(3)/[facility] LABORATORY RBC 4.53 (L) 4.58 [facility] x10(6)/[facility] LABORATORY Hemoglobin 13.1 (L) 13.7 - [facility] 16.[facility] gm/dL [facility] LABORATORY Hematocrit 40.8 40.5 - [facility] 48.5 % [facility] LABORATORY MCV 90.1 82.9 - [facility] 93.1 [facility] LABORATORY MCH 28.9 27.5 - [facility] 32.1 pg [facility] LABORATORY MCHC 32.1 32.0 - [facility] 35.7 gm/dL [facility] LABORATORY Platelets 184 145 - 357 [facility] x10(3)/[facility] LABORATORY RDWSD 47.8 (H) 36.0 - [facility] DOV 45.0 [facility] LABORATORY RDWCV 14.5 (H) 11.4 - [facility] DOV 13.8 % [facility] LABORATORY MPV 11.9 7.6 - 12.9 [facility] nRBC % Auto 0.0 % [facility] LABORATORY nRBC Abs Auto 0.000 0.000 - [facility] DOV 0.000 [facility] x10(3)/[facility] LABORATORY Specimen Anatomical Collection Method Collection Time Receive d Time (Source) Location / / Volume Laterality Blood specimen 11/29/2019 2:32 PM 020 2:55 (specimen) EDT PM EDT Resulting Agency Comment Spec In Lab Darrell Glasgow MD HEMATOLOGY ORDERABLES Performing Organization Address City/State/ZIP Code Phon e Number [address] (ABNORMAL) CK (11/29/2019 2:32 PM EDT) athologist Signature CK, Total 3,282 (H) 0 - 200 [facility] unit/L [facility] LABORATORY Specimen Anatomical Collection Method Collection Time Receive d Time (Source) Location / / Volume Laterality Blood specimen 11/29/2019 2:32 PM 020 2:32 (specimen) EDT PM EDT Resulting Agency Comment Spec In Lab Gretchen Yoon MD CHEMISTRY ORDERABLES Performing Organization Address City/[facility]/ZIP [place] [address] (ABNORMAL) Troponin (11/29/2019 2:32 PM EDT) athologist Signature Troponin-T 20.33 (H) 0.00 - [facility] 0.00 ng/mL [facility] LABORATORY Comment: The 99th percentile for Troponin T is le ss than 0.01 ng/mL, any detectable cTnT concentration using this assay should be considered elevated. According to the third universal definit ion of myocardial infarction the following criteria with a clinical prese ntation consistent with acute myocardial ischemia meets the diagnosis for a myocardial infarction ([place]). Detection of a rise and/or fall of cTnT, with at least one value greater than the 99th percentile (> or = 0.01) and wi th at least one of the following ?? Symptoms of ischemia ?? New or presumed new significant ST-se gment-T wave (ST-T) changes or new left bundle branch block (LBBB) ?? Development of pathologic Q waves in the ECG ?? Imaging evidence of new loss of viabl e myocardium or new regional wall motion abnormality ?? Identification of an intracoronary th rombus by angiography or autopsy Samples for cTnT testing should be obtai alta serially upon first assessment and again 3 to 6 hours later. If the clinica l suspicion is high and previous samples have been negative an additional sample may be indicated. Reference: [place] Definition of Myocardial Infarction. Journal of the [place] [employer] 2012;60:1581-98 Specimen Anatomical Collection Method Collection Time Receive d Time (Source) Location / / Volume Laterality Blood specimen 11/29/2019 2:32 PM 020 2:32 (specimen) EDT PM EDT Resulting Agency Comment Spec In Lab Gretchen Yoon MD CHEMISTRY ORDERABLES Performing Organization Address [facility] [place] [address] (ABNORMAL) APTT (11/29/2019 2:32 PM EDT) athologist Signature PTT 114 25 - 37 [facility] (Critical) On license of [facility] LABORATORY Comment: Critical Result called by ?? LABOSE CRI TICAL Results read back by: ? Marcy Cortes at 2019-11-29 15:18:00 The PTT is NOT appropriate for heparin m onitoring. Use the Anti-Xa level for heparin monitoring (HEP UFH) or LMWH mon itoring (HEP LMW). A PTT less than 37 seconds generally indicates adequate hem ostasis. Specimen Anatomical Collection Method Collection Time Receive d Time (Source) Location / / Volume Laterality Blood specimen 11/29/2019 2:32 PM 020 2:53 (specimen) EDT PM EDT Resulting Agency Comment Spec In Lab Gretchen Yoon MD HEMATOLOGY ORDERABLES Performing Organization Address [facility] [place] [address] (ABNORMAL) Prothrombin Time (11/29/2019 2:32 PM EDT) P athologist Signature PT 13.5 (H) 9.4 - 12.5 [facility] LABORATORY INR 1.2 [facility] LABORATORY Comment: An INR <2.0 indicates adequate procoagul ant activity for hemostasis in most patients without underlying bleeding dis orders, though the INR may not adequately reflect hemostatic capacity i n patients with liver disease and synthetic impairment. The recommended ta rget INR range for therapeutic anticoagulation is 2.0 ? 3.0 for most applications, though lower and higher ranges may be appropriate depending on c linical circumstances. Specimen Anatomical Collection Method Collection Time Receive d Time (Source) Location / / Volume Laterality Blood specimen 11/29/2019 2:32 PM 020 2:53 (specimen) EDT PM EDT Resulting Agency Comment Spec In Lab Gretchen Yoon MD HEMATOLOGY ORDERABLES Performing Organization Address City/State/ZIP Code [place] [address] (ABNORMAL) Hepatic Function Panel (11/29/2019 2:32 PM EDT) athologist Signature Total Protein 6.3 6.1 - 8.0 [facility] gm/dL [facility] LABORATORY Albumin 3.6 3.2 - 5.2 [facility] gm/dL [facility] LABORATORY AST 257 (H) 0 - 39 [facility] [place] unit/L [facility] LABORATORY ALT 50 0 - 55 [facility] unit/L [facility] LABORATORY Alk Phos 84 40 - 130 [facility] unit/L [facility] LABORATORY Total 0.3 0.2 - 1.3 [facility] [place] Bilirubin mg/dL [facility] LABORATORY Bili, Direct 0.1 0.0 - 0.3 [facility] ODV mg/dL [facility] LABORATORY Specimen Anatomical Collection Method Collection Time Receive d Time (Source) Location / / Volume Laterality Blood specimen 11/29/2019 2:32 PM 020 2:32 (specimen) EDT PM EDT Resulting Agency Comment Spec In Lab Gretchen Yoon MD CHEMISTRY ORDERABLES Performing Organization Address City/[facility]/ZIP Code [place] [address] (ABNORMAL) pro-Brain Natriuretic Peptide (11/29/2019 2:32 PM EDT) P athologist Signature ProBNP 272 (H) <=125 pg/mL [facility] LABORATORY Specimen Anatomical Collection Method Collection Time Receive d Time (Source) Location / / Volume Laterality Blood specimen 11/29/2019 2:32 PM 020 2:32 (specimen) EDT PM EDT Resulting Agency Comment Spec In Lab Gretchen Yoon MD CHEMISTRY ORDERABLES Performing Organization Address City/[facility]/ZIP Code [place] [address] Magnesium (11/29/2019 2:32 PM EDT) athologist Signature Magnesium 0.76 0.69 - 1.07 [facility] mmol/L [facility] LABORATORY Specimen Anatomical Collection Method Collection Time Receive d Time (Source) Location / / Volume Laterality Blood specimen 11/29/2019 2:32 PM 020 2:32 (specimen) EDT PM EDT Resulting Agency Comment Spec In Lab Gretchen Yoon MD CHEMISTRY ORDERABLES Performing Organization Address City/State/ZIP Code Phon e Number [address] (ABNORMAL) Basic Metabolic Panel (non-fasting) (11/29/2019 2:32 PM EDT) athologist Signature Glucose Lvl 149 65 - 199 [facility] mg/dL [facility] LABORATORY Comment: Diabetes: >=200 mg/dL plus symp toms BUN 16 10 - 20 mg/dL [facility] LABORATORY Creatinine 0.94 0.80 - 1.50 mg/dL [facility] LABORATORY Sodium 135 135 - 145 mmol/L [facility] LABORATORY Potassium 4.5 3.5 - 5.0 mmol/L [facility] LABORATORY Comment: Please note: ??Patients with WBC >100,00 0 may have falsely elevated Potassium levels. ??For accurate Potassium quantif ication in these patients send serum separator tube (gold top) for subsequent determinations. ??Contact the Clinical Chemistry Laboratory if there are any qu estions. Chloride 105 98 - 107 mmol/L [facility] LABORATORY CO2 15 (L) 22 - 31 mmol/L [facility] LABORATORY Anion Gap 15 5 - 15 mmol/L [facility] LABORATORY Calcium 8.0 (L) 8.5 - 10.5 mg/dL [facility] LABORATORY Estimated GFR 80 >=60 mL/min/1.73 m?? [facility] LABORATORY Comment: The eGFR was calculated using the CKD-EP I equation. As with all creatinine based estimates of kidney function, eGFR values calculated with the CKD-EPI equation are not accurate in patients wi th acute kidney failure, extremes of body mass or the acutely ill. http://[employer]/[facility]nkf eGFR 93 >=60 mL/min/1.73 m?? [facility] LABORATORY Comment: The eGFR was calculated using the CKD-EP I equation. As with all creatinine based estimates of kidney function, eGFR values calculated with the CKD-EPI equation are not accurate in patients wi th acute kidney failure, extremes of body mass or the acutely ill. http://[employer]/[facility] Specimen Anatomical Collection Method Collection Time Receive d Time (Source) Location / / Volume Laterality Blood specimen 11/29/2019 2:32 PM 020 2:32 (specimen) EDT PM EDT Resulting Agency Comment Spec In Lab Gretchen Yoon MD CHEMISTRY ORDERABLES Performing Organization Address City/[facility] [place] [address] EKG 12 Lead (11/29/2019 11:38 AM EDT) [facility] gist Method Time Signature Ventricular rate 60 BPM MUSE SYSTEM Atrial Rate 60 BPM MUSE SYSTEM P-R Interval 140 ms MUSE SYSTEM QRS Duration 86 ms MUSE SYSTEM Q-T Interval 474 ms MUSE SYSTEM QTC Calculated 474 ms MUSE SYSTEM (Bezet) Calculated P Jackson 48 degrees MUSE SYSTEM Calculated R Jackson 14 degrees MUSE SYSTEM Calculated T Jackson 58 degrees MUSE SYSTEM INTERPRETATION Normal sinus rhythm MUSE SYSTEM Possible Inferior infarct (cited on or before 29-NOV-2019) Abnormal ECG When compared with ECG of 29-NOV-2019 09:01, Sinus rhythm has replaced Junctional rhythm Serial changes of evolving Inferior infarct Present Confirmed by MD Roberto, Tello Crowell (1950) on 11/29/2019 1:38:0 6 PM Specimen Anatomical Collection Method Collection Time Receive d Time (Source) Location / / Volume Laterality 11/29/2019 11:38 11/29/2019 1:38 AM EDT PM EDT Gretchen Yoon MD ECG ORDERABLES Performing Organization Address City/[facility]/[place] [facility] [place] MUSE SYSTEM CARDIAC CATHETERIZATION (11/29/2019 11:15 AM EDT) Anatomical Region Laterality Modality Other Specimen (Source) Anatomical Location Collection Method / Collectio n Time Received Time / Laterality Volume Narrative 11/30/2019 1:09 PM EDT ?[facility] ? Cardiac Cathete rization/Intervention Report ? Patient Name: Salinas, Ange Lluis H. ? Procedure Date: 11/29/2019 ? A #: [id number] ? Primary Physician: Young, Gretchen N ? Case #: [id number] ? File Name: [id number] ? Catheterization Order Number: [id number] ? [facility] ? Final Report [place], [place] ? Patient Name: ? Angel Luis Salinas ? ID#: ?[id number] ? : ?1945 ? Procedure Date: ? November 29, 2019 ? Case #: ? [id number] ? Room: ? 5 ? Case Physician: ? Gretchen Yoon M.D. ?Start: ?09:11 ?Fellow: ? Aidan mckee, M.D. ?Admission: ??11/29/2019 ? Discharge: ??12/08/2019 ? Procedures: ?* Coronary Angiography ?* Left Heart Catheterization ?* Coronary Stent Insertion ?* Coronary Embolic Protection/T hrombectomy ?* Arterial Blood Gases ? Pre Case Status: ?These procedures were performed on an emergent basis. ? History ?Angel Luis Salinas is a 74 year old man. He has a family history of coronary ?artery disease. The patient's s moking status is Current with Current - ?Every Day frequency, using ciga rettes. Cigarette use is Heavy (>=10/day). ?He has untreated hypercholester olemia. The patient is status post an ?acute ST elevation myocardial i nfarction. He also has a history of ?peripheral vascular disease. Pr ior to the initiation of this procedure, ?the patient was designated as A SA Class IV. The CSHA clinical frailty ?scale is 4: Vulnerable. ? Diagnostic Tests: ?Electrocardiography: ? EKG was assessed by ECG. EKG was Abnormal. EKG showed ST Deviation ? >= 0.5 mm. ?Medications Prior to Procedure: ? Aspirin. ? Indications for Diagnostic Cath: ?The priority of the diagnostic procedure was Emergent. The indication for ?the labor relations director visit is ACS less than or equal to 24 hrs. Chest pain ?symptom assessment was: Typical Angina. ? Technique: ?A 6Fr sheath was inserted in th e right radial artery utilizing the ?Seldinger technique. The left c oronary artery was injected utilizing a ?5Fr JL 3.5 catheter. Left ventr icle was performed with a 5Fr JL 3.5 ?catheter. A 6Fr JR 4 catheter w as used to inject the right coronary ?artery. Coronary stent insertio n and coronary embolic ?protection/thrombectomy were pe rformed and the equipment utilized will be ?described in the intervention s ummary section. 7,000 units of heparin ?were administered. A total of 2 00cc of Omnipaque were opened, 181cc of ?Omnipaque were administered and 19cc of Omnipaque were wasted. Radiation: ?Fluoro time was 29.5 minutes, d ose area product was 105,161 mGYcm2 and ?air kerma was 2,088 mGY. See e case log for additional details. ?The patient received the follow ing medications prior to and during the ?procedure: ? Unfractionated Heparin a nd Clopidogrel. ? Hemodynamics: ?Left Heart Pressures ? Resting: ? Syst D iast ? EDP ?a ?v ? m ?Ao 99 ?55 ?73 ?LV 105 ? 15 ? Coronary Angiography: ?Dominance: Right ?Left Main ? There was mild diffuse ( <=25% stenosis) disease of the entire vessel ? segment of the left main artery. ?Left Anterior Descending ? There was mild diffuse ( <=25% stenosis) disease of the entire vessel ? segment of the left ante rior descending artery (LAD). ??The proximal ? segment of the LAD had m ild diffuse (<=25% stenosis) disease. ?Left Circumflex ? There was a 50% long seg mental stenosis of the mid 1 segment of the ? left circumflex artery ( LCX). ??The LCX was large. ??The mid 2 segment ? of the LCX had a single discrete 80% stenosis. ?Right Coronary Artery ? There were multiple disc rete 95% stenoses of the proximal segment of ? the right coronary arter y (RCA). ??The RCA was large. ??The mid ? segment of the RCA had m oderate diffuse (<=50% stenosis) disease. ? There also were multiple discrete 90% calcified stenoses of the ? distal segment of the RC A. ??There was evidence of thrombus in these ? lesions. ? Indication for Intervention: ?Coronary intervention was indic ated for primary therapy for an acute ?myocardial infarction. The edwinao philip for the procedure was Emergent. The ?NCDR indication for the procedu re was STEMI (after successful lytics). ?STEMI onset was 11/29/2019 at 4 :00 AM, estimated. Thrombolytics were ?administered on 11/29/2019 at 7 :04 AM. ? Intervention Summary: ?Right Coronary Artery ? Proximal 95% ? Stent insertion was performed on the 95% multiple discrete ? stenosis in the proximal segment of the RCA. This was a de ? justa lesion. Ac cording to the ACC/AHA classification system, ? this lesion was a type C high risk lesion. Primary prevention ? of restenosis w as the indication for stent insertion. This was ? the culprit les ion. A guidewire was placed across this lesion. ? Vessel flow pre intervention was DILLON 3. Lesion length was ? 12mm. ? Stent insertion was accomplished through a 6 Fr. JR 4 guide. ? The lesion was predilated with a 3.00mm balloon with a maximum ? inflation press ure of 20 atmospheres. ??A premounted 3.50 x 26 ? mm Resolute UMA X (MACARIO) was deployed with a maximum inflation ? pressure of 21 atmospheres. ??Following stent deployment, the ? lesion was dila pepper using a 3.75mm NC EUPHORA 20 MM balloon ? with a maximum inflation pressure of 20 atmospheres. ? The final outco me was defined as successful. A coronary ? arteriolar vaso dilator was administered as part of the ? intervention on this lesion. There was no residual stenosis ? following this intervention. The final DILLON flow was 3. ? Mid Moderate Diffuse (<= 50% Stenosis) ? Stent insertion was attempted on the moderate diffuse (<=50% ? stenosis) steno sis in the mid segment of the RCA. This was a ? de justa lesion. This lesion was designated a type B2 moderate ? risk lesion bas ed on ACC/AHA classification system. Primary ? prevention of r estenosis was the indication for stent ? insertion. A gu idewire was placed across this lesion. Vessel ? flow pre interv ention was DILLON 3. Lesion length was 15mm. ? Stent insertion was accomplished through a 6 Fr. JR 4 guide. ? The lesion was predilated with a 3.50mm NC EUPHORA 20 MM ? balloon with a maximum inflation pressure of 20 atmospheres. ? A premounted 3. 50 x 30 mm Resolute MENDEZ (MACARIO) was deployed ? with a maximum inflation pressure of 20 atmospheres. ? Following stent deployment, the lesion was dilated using a ? 3.75mm NC EUPHO RA 20 MM balloon with a maximum inflation ? pressure of 20 atmospheres. ? The final outco me was defined as unsuccessful due to the ? presence of a s ignificantly decreased distal flow. A coronary ? arteriolar vaso dilator was administered as part of the ? intervention on this lesion. The residual stenosis following ? this interventi on was 10%. The final DILLON flow was 2. ? Distal 90% ? Thrombectomy an d stent insertion were attempted on the 90% ? multiple discre te stenosis in the distal segment of the RCA. ? This was a de n ovo lesion. According to the ACC/AHA ? classification system, this lesion was a type C moderate risk ? lesion. Primary prevention of restenosis was the indication ? for stent inser tion. A guidewire was placed across this ? lesion. Vessel flow pre intervention was DILLON 3. Lesion length ? was 30mm. ? Thrombectomy wa s accomplished through a 6 Fr JR 4 guide ? utilizing a Pro nto LP. ? Stent insertion was accomplished through a 6 Fr. JR 4 guide. ? The lesion was predilated with a 3.00mm NC EUPHORA 15 MM ? balloon with a maximum inflation pressure of 14 atmospheres. ? A premounted 3. 00 x 38 mm Resolute MENDEZ (MACARIO) was deployed ? with a maximum inflation pressure of 20 atmospheres. ? Following stent deployment, the lesion was dilated using a ? 3.50mm NC EUPHO RA 20 MM balloon with a maximum inflation ? pressure of 20 atmospheres. ? The final outco me was defined as unsuccessful due to the ? presence of a s ignificantly decreased distal flow. A coronary ? arteriolar vaso dilator was administered as part of the ? intervention on this lesion. The residual stenosis following ? this interventi on was 10%. The final DILLON flow was 2. ? Vascular Access: ?Vascular Access Management: ? Mechanical Compression o f the right radial artery access site was ? performed. ? Point of Care Testing: ?ABG: ? Arterial Blood gasses we re performed using the I-Stat analyzer at ? 09:17: pH: 7.33, pCO2: 3 2.8, pO2: 56.0, sPO2: 87%, HCO3: 17 on FIO2: ? 21. ?I-Stat: ? I-Stat was performed usi ng the I-Stat analyzer at 09:17: Na+: 137, ? K+: 3.6, iCa++: 1.15, Hc t: 37%, Hb: 12.6. ? Dual Antiplatelet (DAPT) Recommendations : ?Drug eluting stent (MACARIO) insert ed. ?P2Y12 Loading dose administered prior to arrival in the labor relations director. ?Recommended anti-platelet/anti- thrombotic regimen: ?Continue aspirin 81 mg daily fo r indefinitely. ?Continue clopidogrel 75 mg marco a y for 12 months then stop. ?These recommendations are made at the time of the intervention. Patient ?and provider preferences or a c hanging clinical situation may require ?modification of this regimen. [facility] Interventional Cardiology for ?questions. ? Conclusions: ?* Two vessel coronary artery di sease (LCX and RCA) ?* Successful stent insertion of the proximal RCA lesion ?* Unsuccessful thrombectomy and stent insertion of the distal RCA lesion ?* Unsuccessful stent insertion of the mid RCA lesion ?* See Dual Antiplatelet (DAPT) Recommendations above. ? Complications/Events: ?The patient had no complication s during these procedures. ?The attending physician was presen t for the entire procedure. ?Dr. Gretchen Yoon M.D. was pres ent during the moderate sedation ?intraservice time as documented by the sedation nurse. ??Case time = 01:59. ?Dr. Gretchen Yoon M.D. performe d the coronary angiography, left heart ?catheterization, stent insertion-c oronary, ABG and embolic ?protection/thrombectomy-coronary. ? Gretchen Yoon M.D. ? Electronically Signed by: Gretchen lockett, M.D. ? Report Finalized: 11/30/2019 ??13:04 ? Report Last Ammended: 01/01/2020 ??16:32 ? Procedure Note Gretchen Yoon MD - 01/01/2020Formatt ing of this note might be different from the original. [facility] Cardiac Catheterization/Intervention Re port Patient Name: Angel Luis Salinas Procedure Date: 11/29/2019 A #: [id number] Primary Physician: Gretchen Yoon Case #: [id number] File Name: [id number] Catheterization Order Number: [id number] [facility] Final Report [place], [place] Patient Name: Angel Luis Salinas ID#: [id number] : 1945 Procedure Date: November 29, 2019 Case #: [id number] Room: 5 Case Physician: Gretchen Yoon M.D. art: 09:11 Fellow: Aidan Ward M.D. Admission: 11/29/2019 Discharge: 12/08/2019 Procedures: * Coronary Angiography * Left Heart Catheterization * Coronary Stent Insertion * Coronary Embolic Protection/Thrombect zoe * Arterial Blood Gases Pre Case Status: These procedures were performed on an e mergent basis. History Angel Luis Salinas is a 74 year old man. He has a family history of coronary artery disease. The patient's smoking s tatus is Current with Current - Every Day frequency, using cigarettes. Cigarette use is Heavy (>=10/day). He has untreated hypercholesterolemia. The patient is status post an acute ST elevation myocardial infarctio n. He also has a history of peripheral vascular disease. Prior to t he initiation of this procedure, the patient was designated as ASA Class IV. The [facility] clinical frailty scale is 4: Vulnerable. Diagnostic Tests: Electrocardiography: EKG was assessed by ECG. EKG was Abnorm al. EKG showed ST Deviation >= 0.5 mm. Medications Prior to Procedure: Aspirin. Indications for Diagnostic Cath: The priority of the diagnostic procedur e was Emergent. The indication for the labor relations director visit is ACS less than or equal to 24 hrs. Chest pain symptom assessment was: Typical Angina. Technique: A 6Fr sheath was inserted in the right radial artery utilizing the Seldinger technique. The left coronary artery was injected utilizing a 5Fr JL 3.5 catheter. Left ventricle was performed with a 5Fr JL 3.5 catheter. A 6Fr JR 4 catheter was used to inject the right coronary artery. Coronary stent insertion and co ronary embolic protection/thrombectomy were performed and the equipment utilized will be described in the intervention summary s ection. 7,000 units of heparin were administered. A total of 200cc of Omnipaque were opened, 181cc of Omnipaque were administered and 19cc of Omnipaque were wasted. Radiation: Fluoro time was 29.5 minutes, dose area product was 105,161 mGYcm2 and air kerma was 2,088 mGY. See the case l og for additional details. The patient received the following medi cations prior to and during the procedure: Unfractionated Heparin and Clopidogrel. Hemodynamics: Left Heart Pressures Resting: Syst Diast EDP a v m Ao 99 55 73 LV 105 15 Coronary Angiography: Dominance: Right Left Main There was mild diffuse (<=25% stenosis) disease of the entire vessel segment of the left main artery. Left Anterior Descending There was mild diffuse (<=25% stenosis) disease of the entire vessel segment of the left anterior descending artery (LAD). The proximal segment of the LAD had mild diffuse (<= 25% stenosis) disease. Left Circumflex There was a 50% long segmental stenosis of the mid 1 segment of the left circumflex artery (LCX). The LCX w as large. The mid 2 segment of the LCX had a single discrete 80% st enosis. Right Coronary Artery There were multiple discrete 95% stenos es of the proximal segment of the right coronary artery (RCA). The RC A was large. The mid segment of the RCA had moderate diffuse (<=50% stenosis) disease. There also were multiple discrete 90% c alcified stenoses of the distal segment of the RCA. There was ev idence of thrombus in these lesions. Indication for Intervention: Coronary intervention was indicated for primary therapy for an acute myocardial infarction. The priority for the procedure was Emergent. The [facility] indication for the procedure was S GAETANO (after successful lytics). STEMI onset was 11/29/2019 at 4:00 AM, estimated. Thrombolytics were administered on 11/29/2019 at 7:04 AM. Intervention Summary: Right Coronary Artery Proximal 95% Stent insertion was performed on the 95 % multiple discrete stenosis in the proximal segment of the RCA. This was a de justa lesion. According to the ACC/AHA c lassification system, this lesion was a type C high risk lesi on. Primary prevention of restenosis was the indication for st ent insertion. This was the culprit lesion. A guidewire was krishna michael across this lesion. Vessel flow pre intervention was DILLON 3 . Lesion length was 12mm. Stent insertion was accomplished throug h a 6 Fr. JR 4 guide. The lesion was predilated with a 3.00mm balloon with a maximum inflation pressure of 20 atmospheres. A premounted 3.50 x 26 mm Resolute MENDEZ (MACARIO) was deployed wit h a maximum inflation pressure of 21 atmospheres. Following s tent deployment, the lesion was dilated using a 3.75mm NC EU PHORA 20 MM balloon with a maximum inflation pressure of 20 atmospheres. The final outcome was defined as succes sful. A coronary arteriolar vasodilator was administered as part of the intervention on this lesion. There was no residual stenosis following this intervention. The final DILLON flow was 3. Mid Moderate Diffuse (<=50% Stenosis) Stent insertion was attempted on the mo derate diffuse (<=50% stenosis) stenosis in the mid segment o f the RCA. This was a de justa lesion. This lesion was designa pepper a type B2 moderate risk lesion based on ACC/AHA classifica tion system. Primary prevention of restenosis was the indica tion for stent insertion. A guidewire was placed acros s this lesion. Vessel flow pre intervention was DILLON 3. Lesio n length was 15mm. Stent insertion was accomplished throug h a 6 Fr. JR 4 guide. The lesion was predilated with a 3.50mm NC EUPHORA 20 MM balloon with a maximum inflation pressu re of 20 atmospheres. A premounted 3.50 x 30 mm Resolute MENDEZ (MACARIO) was deployed with a maximum inflation pressure of 20 atmospheres. Following stent deployment, the lesion was dilated using a 3.75mm NC EUPHORA 20 MM balloon with a maximum inflation pressure of 20 atmospheres. The final outcome was defined as unsucc essful due to the presence of a significantly decreased d istal flow. A coronary arteriolar vasodilator was administered as part of the intervention on this lesion. The residu al stenosis following this intervention was 10%. The final TI FL flow was 2. Distal 90% Thrombectomy and stent insertion were a ttempted on the 90% multiple discrete stenosis in the dista l segment of the RCA. This was a de justa lesion. According to the ACC/AHA classification system, this lesion was a type C moderate risk lesion. Primary prevention of restenosi s was the indication for stent insertion. A guidewire was pl aced across this lesion. Vessel flow pre intervention wa s DILLON 3. Lesion length was 30mm. Thrombectomy was accomplished through a 6 Fr JR 4 guide utilizing a Pronto LP. Stent insertion was accomplished throug h a 6 Fr. JR 4 guide. The lesion was predilated with a 3.00mm NC EUPHORA 15 MM balloon with a maximum inflation pressu re of 14 atmospheres. A premounted 3.00 x 38 mm Resolute MENDEZ (MACARIO) was deployed with a maximum inflation pressure of 20 atmospheres. Following stent deployment, the lesion was dilated using a 3.50mm NC EUPHORA 20 MM balloon with a maximum inflation pressure of 20 atmospheres. The final outcome was defined as unsucc essful due to the presence of a significantly decreased d istal flow. A coronary arteriolar vasodilator was administered as part of the intervention on this lesion. The residu al stenosis following this intervention was 10%. The final TI FL flow was 2. Vascular Access: Vascular Access Management: Mechanical Compression of the right rad ial artery access site was performed. Point of Care Testing: ABG: Arterial Blood gasses were performed us ing the I-Stat analyzer at 09:17: pH: 7.33, pCO2: 32.8, pO2: 56.0, sPO2: 87%, HCO3: 17 on FIO2: 21. I-Stat: I-Stat was performed using the I-Stat a nalyzer at 09:17: Na+: 137, K+: 3.6, iCa++: 1.15, Hct: 37%, Hb: 12. 6. Dual Antiplatelet (DAPT) Recommendations : Drug eluting stent (MACARIO) inserted. P2Y12 Loading dose administered prior t o arrival in the labor relations director. Recommended anti-platelet/anti-thrombot ic regimen: Continue aspirin 81 mg daily for indefi nitely. Continue clopidogrel 75 mg daily for 12 months then stop. These recommendations are made at the t loyda of the intervention. Patient and provider preferences or a changing clinical situation may require modification of this regimen. Consult [facility] [place] Interventional Cardiology for questions. Conclusions: * Two vessel coronary artery disease (L CX and RCA) * Successful stent insertion of the pro ximal RCA lesion * Unsuccessful thrombectomy and stent i nsertion of the distal RCA lesion * Unsuccessful stent insertion of the m id RCA lesion * See Dual Antiplatelet (DAPT) Recommen dations above. Complications/Events: The patient had no complications during these procedures. The attending physician was present for the entire procedure. Dr. Gretchen Yoon M.D. was present d uring the moderate sedation intraservice time as documented by the sedation nurse. Case time = 01:59. Dr. Gretchen Yoon M.D. performed the coronary angiography, left heart catheterization, stent insertion-austin ry, ABG and embolic protection/thrombectomy-coronary. Gretchen Yoon M.D. Electronically Signed by: Gretchen lockett M.D. Report Finalized: 11/30/2019 13:04 Report Last Ammended: 01/01/2020 16:32 Gretchen Yoon MD CARDIAC CATH ORDERABLES (ABNORMAL) Point of Care Blood Gas Historical (11/29/2019 9:17 AM EDT) Patholo gist Method Time Signature POC pH 7.33 (L) 7.35 - [facility] 7.45 [facility] POC PCO2 33 (L) 35 - 45 [facility] mmHg [facility] POC PO2 56 (L) 85 - 104 [facility] LABORATORY POC Base Excess -8.0 (L) -3.0 - 3.0 [facility] K mmol/L [facility] POC HCO3 17.4 (L) 20.0 - [facility] 26.0 [facility] mmol/[facility] POC Sodium 137 135 - 145 [facility] mmol/L [facility] POC Potassium 3.6 3.5 - 5.0 [facility] mmol/L [facility] POC Ionized Ca 1.15 1.15 - [facility] 1.33 [facility] Hematocrit 37.0 (L) 40.0 - [facility] 51.0 % [facility] POC Calc Hgb 12.6 (L) 13.7 - [facility] 17.5 gm/dL [facility] Comment: The calculation of hemoglobin f rom hematocrit assumes a normal MCHC. POC Bgas Loc CC LAB [facility] Specimen Anatomical Collection Method Collection Time Receive d Time (Source) Location / / Volume Laterality Blood specimen 11/29/2019 9:17 AM 020 7:35 (specimen) EDT AM EDT Gretchen Yoon MD CHEMISTRY ORDERABLES Performing Organization Address City/State/[place] [address] EKG 12 Lead (11/29/2019 9:01 AM EDT) Component Value Ref Range Test Analysis Performed Pathologis t Method Time At Signature Ventricular rate 80 BPM MUSE SYSTEM Atrial Rate 79 BPM MUSE SYSTEM QRS Duration 94 ms MUSE SYSTEM Q-T Interval 436 ms MUSE SYSTEM QTC Calculated 502 ms MUSE SYSTEM (Bezet) Calculated R Jackson 54 degrees MUSE SYSTEM Calculated T Jackson 80 degrees MUSE SYSTEM INTERPRETATION Normal sinus rhythm MUSE SYSTEM Inferior infarct , possibly acute Prolonged QT * ACUTE [place] ?? Consider right ventricular involvement in acute inferior inf arct Abnormal ECG No previous ECGs available Confirmed by MD Shaan, Gretchen ([id number]) on 11/29/2019 5:12:30 PM Specimen Anatomical Collection Method Collection Time Receive d Time (Source) Location / / Volume Laterality 11/29/2019 9:01 AM 0 5:12 EDT PM EDT Gretchen Yoon MD ECG ORDERABLES Performing Organization Address City/State/ZIP Code Phon e Number MUSE SYSTEM documented in this encounter Visit Diagnoses Diagnosis Acute ST elevation myocardial infarction (STEMI) of inferior wall - Primary ST elevation myocardial infarction invol ving left main coronary artery Acute myocardial infarction of other ant erior wall, initial episode of care ST elevation myocardial infarction invol ving right coronary artery Acute myocardial infarction of inferopos terior wall, initial episode of care Edema of upper extremity Edema Intracranial hemorrhage Unspecified intracranial hemorrhage Paroxysmal atrial fibrillation Atrial fibrillation Acute pulmonary embolism, unspecified pu lmonary embolism type, unspecified whether acute cor pulmonale present Hyperlipidemia Other and unspecified hyperlipidemia Tobacco abuse Tobacco use disorder Claudication from peripheral vascular di sease, left Peripheral vascular disease, unspecified Acute systolic CHF (congestive heart reid lure), NYHA class 3, MILVIA/AHA stage C Acute systolic heart failure Atrial fibrillation, with cardioembolic stroke, on amiodarone Atrial fibrillation documented in this encounter Admitting Diagnoses Diagnosis STEMI (ST elevation myocardial infarctio n) Acute myocardial infarction, unspecified site, episode of care unspecified documented in this encounter Administered Medications Inactive Administered Medications - up to 3 most recent administrations Medication Order MAR Action Action Date Dose Rate Site acetaminophen (Tylenol) tablet Given 11/30/2019 12:43 PM EDT 650 mg 650 mg 650 mg, Oral, EVERY 4 HOURS PRN, Starting on 11/29/19 at 1306, Until 12/08/19 at 1811, Pain, Headaches, Maximum dose of acetaminophen is 4000 mg from all sources in 24 hours., Routine Given 11/30/2019 8:15 AM EDT 650 mg AMIOdarone (CORDARONE) 450 mg New Bag 12/08/2019 5:06 AM EDT 0 .5 mg/min 16.7 mL/hr in non-PVC dextrose 5% 250 mL infusion 1 mg/min (33.3333 mL/hr, rounded to 33.3 mL/hr), Intravenous, CONTINUOUS, Starting on 12/07/19 at 1315, Until Sun12/08/19 at 1203, 1mg/min for 6hrs, then 0.5mg/min for 18hrs. After first 24hours, order maintenance dose 0.5 mg/min. Use in-line filter. If new bag needed, RN must request via Med Message one hour before current bag will be empty to allow for pharmacy preparation Rate/Dose Change 12/07/2019 7:22 PM EDT 0.5 mg/min 16.7 mL/hr New Bag 12/07/2019 4:54 PM EDT 1 mg/min 33.3 mL/hr AMIOdarone (CORDARONE) bolus from Bolus from Bag 12/07/2019 1:11 PM E DT 150 mg bag 150 mg 150 mg, Intravenous, ONCE, 1 dose, On Marion 12/07/19 at 1315, Warning Vesicant/Irritant Medication , Routine AMIOdarone (Cordarone; Pacerone) tablet 400 Given 01/2020 12:28 PM EDT 400 mg mg 400 mg, Oral, 2 TIMES DAILY, First dose on Sun12/08/19 at 1230, Until Discontinued, Routine apixaban (Eliquis) tablet 5 mg Given 12/08/2019 9:25 AM EDT 5 mg 5 mg, Oral, 2 TIMES DAILY, First dose on Sun12/08/19 at 0930, Until Discontinued, Anticoagulant, Routine aspirin chewable tablet 81 mg Given 12/08/2019 9:25 AM EDT 81 mg 81 mg, Oral, DAILY, First dose on Sun12/01/19 at 1645, Until Discontinued, Routine Given 12/07/2019 8:24 AM EDT 81 mg Given 12/06/2019 9:55 AM EDT 81 mg aspirin EC tablet 81 mg Given 11/30/2019 8:16 AM EDT 81 mg 81 mg, Oral, DAILY, First dose on 11/29/19 at 1330, Until Discontinued, Routine cefPODOXime (Vantin) tablet 200 mg Given 12/05/2019 8:08 PM EDT 200 mg 200 mg, Oral, 2 TIMES DAILY, 4 doses, First dose on Lisandra 12/04/19 at 0900, Last dose on Sun12/05/19 at 2100, Routine Given 12/05/2019 10:14 AM EDT 200 mg Given 12/04/2019 8:26 PM EDT 200 mg cefTRIAXone (ROCEPHIN) 1 g vial New Bag 12/01/2019 3:50 PM EDT 900 mg 100 mL/hr attach to sodium chloride 0.9% 50 mL Mini-Bag Plus 900 mg, Intravenous, ONCE, 1 dose, On Sun12/01/19 at 1445, Administer over 30 Minutes, infuse remainder of the bag over 30 min and monitor the patient for 1 hour once infusion is complete, Indication for (Active or Suspected): Other (See comment) cefTRIAXone (ROCEPHIN) 1 g vial attach New Bag 12/03/2019 2:02 PM EDT 1 g 100 mL/hr to sodium chloride 0.9% 50 mL Mini-Bag Plus 1 g, Intravenous, EVERY 24 HOURS, 5 doses, First dose on Sun12/02/19 at 1400, Last dose on Sun12/06/19 at 1400, Administer over 30 Minutes, Indication for (Active or Suspected): Pneumonia ([facility]) New Bag 12/02/2019 2:00 PM EDT 1 g 100 mL/hr cefTRIAXone (ROCEPHIN) bolus from Bolus from Bag 12/01/2019 3:19 PM E DT 100 mg bag 100 mg 100 mg, Intravenous, ONCE, 1 dose, On Sun12/01/19 at 1415, Administer over 3 min and monitor patient for 30 min, Routine cholecalciferol (Vitamin D3) (Vitamin Given 12/08/2019 9:25 AM E DT 1,000 Units D3) tablet 1,000 Units 1,000 Units, Oral, DAILY, First dose on 11/29/19 at 1330, Until Discontinued, 40 units is equivalent to 1 mcg of cholecalciferol., Routine Given 12/07/2019 8:24 AM EDT 1,000 Units Given 12/06/2019 9:54 AM EDT 1,000 Units clopidogreL (Plavix) tablet 75 mg Given 12/08/2019 9:25 AM EDT 75 mg 75 mg, Oral, DAILY, First dose on 11/30/19 at 0900, Until Discontinued, Recovery (Recovery-Hospital Unit), Routine Given 12/07/2019 8:24 AM EDT 75 mg Given 12/06/2019 9:55 AM EDT 75 mg colchicine (Colcrys) tablet 0.6 mg Given 12/02/2019 9:01 AM EDT 0.6 mg 0.6 mg, Oral, 2 TIMES DAILY, First dose on Sun12/01/19 at 1100, Until Discontinued, Maximum dose: 2.4 mg/24 hours. DO NOT SPLIT, CRUSH OR OPEN, STAT Given 12/01/2019 9:28 PM EDT 0.6 mg Given 12/01/2019 11:37 AM EDT 0.6 mg colchicine (Colcrys) tablet 0.6 mg Given 12/07/2019 8:23 AM EDT 0.6 mg 0.6 mg, Oral, DAILY, First dose (after last modification) on Sun12/03/19 at 0900, Until Discontinued, Maximum dose: 2.4 mg/24 hours. DO NOT SPLIT, CRUSH OR OPEN, STAT Given 12/06/2019 9:54 AM EDT 0.6 mg Given 12/05/2019 10:09 AM EDT 0.6 mg diphenhydrAMINE (BENADRYL) injection 50 mg 50 mg, Intravenous, EVERY 2 HOURS PRN, S tarting on Sun12/01/19 at 1348, Until Sun12/08/19 at 1811, Itching, hives and itchi ng, Notify service if given. May give up to 400 mg per day, Routine DOBUTamine 2,000 mcg/mL Rate/Dose Verify 12/01/2019 10:00 2.5 mcg/k g/min 4.8 mL/hr (standard ADULT & Pedi AM EDT greater than 20kg) 2.5-7.5 mcg/kg/min ? 64.1 kg (4.8075-14.4225 mL/hr, rounded to 4.8-14.4 mL/hr), Intravenous, CONTINUOUS, Starting on 11/30/19 at 0930, Until Sun12/02/19 at 0924, Titrate to keep cardiac index greater than 2.0 L/min/M2. Start at 5 mcg/kg/min and adjust by 5 mcg/kg/min every 10 minutes. Dose not to exceed 7.5 mcg/kg/minute. Rate/Dose Verify 12/01/2019 6:00 AM EDT 2.5 mcg/kg/min 4.8 mL/hr Rate/Dose Verify 12/01/2019 4:00 AM EDT 2.5 mcg/kg/min 4.8 mL/hr eptifibatide (INTEGRILIN) 0.75 Continued Bag 11/29/2019 1:45 P M EDT 1 mcg/kg/min mg/mL infusion 1 mcg/kg/min, Intravenous, CONTINUOUS, Starting on 11/29/19 at 1445, Until 11/29/19 at 1534, Please stop drip once bottle is finished., Recovery (Recovery-Hospital Unit) eptifibatide (INTEGRILIN) New Bag 11/29/2019 5:51 PM EDT 2 mcg /kg/min 10.3 mL/hr 0.75 mg/mL infusion 2 mcg/kg/min ? 64.1 kg (10.256 mL/hr, rounded to 10.3 mL/hr), Intravenous, CONTINUOUS, Starting on 11/29/19 at 1530, Until 11/29/19 at 1900, Please stop drip once bottle is finished., Recovery (Recovery-Hospital Unit) New Bag 11/29/2019 3:47 PM EDT 2 mcg/kg/min 10.3 mL/hr eptifibatide Continued Bag 11/29/2019 7:30 PM 2 mcg/kg/min 10.3 mL/hr (INTEGRILIN) 0.75 mg/mL EDT infusion 2 mcg/kg/min ? 64.1 kg (10.256 mL/hr, rounded to 10.3 mL/hr), Intravenous, CONTINUOUS, Starting on 11/29/19 at 1930, Until 11/30/19 at 0029, Please stop drip once bottle is finished. ezetimibe (Zetia) tablet 10 mg Given 12/08/2019 10:42 AM EDT 10 mg 10 mg, Oral, DAILY, First dose on 12/01/19 at 1000, Until Discontinued, Routine Given 12/07/2019 8:24 AM EDT 10 mg Given 12/06/2019 9:54 AM EDT 10 mg fentaNYL 50 mcg/mL multi-dose injection Given 11/29/2019 2:24 PM EDT 25 mcg 25 mcg, Intravenous, EVERY 30 MIN PRN, Starting on 11/29/19 at 1422, Until Sun12/02/19 at 0925, Pain, Routine furosemide (LASIX) injection 20 mg Given 12/01/2019 10:55 AM EDT 20 mg 20 mg, Intravenous, ONCE, 1 dose, On Sun12/01/19 at 1015, STAT furosemide (LASIX) injection 20 mg Given 12/02/2019 9:46 AM EDT 20 mg 20 mg, Intravenous, ONCE, 1 dose, On Tu12/02/19 at 0945, STAT furosemide (Lasix) tablet 20 mg Given 12/04/2019 9:18 AM EDT 20 mg 20 mg, Oral, DAILY, First dose on Lisandra 12/04/19 at 0900, Until Discontinued, Routine furosemide (Lasix) tablet 20 mg Given 12/07/2019 8:24 AM EDT 20 mg 20 mg, Oral, DAILY, First dose on 12/06/19 at 1730, Until Discontinued, Routine Given 12/06/2019 7:15 PM EDT 20 mg furosemide (Lasix) tablet 20 mg 20 mg, Oral, EVERY OTHER DAY, First dose (after last modification) on Tu12/09/19 at 0900, Until Discontinued, Routine furosemide (Lasix) tablet 40 mg Given 12/03/2019 11:30 AM EDT 40 mg 40 mg, Oral, ONCE, 1 dose, On Sun12/03/19 at 1000, Routine gadoterate meglumine (DOTAREM) 0.5 mmol/mL Given 12/05/2019 8:00 PM EDT 13 mLs (376.9 mg/mL) injection 12.86 mL 12.86 mL (0.2 mL/kg/dose ? 64.3 kg), Intravenous, ONCE PRN, 1 dose, Starting on Sun12/05/19 at 2000, Until Sun12/05/19 at 2000, Per Protocol, Radiology Contrast, Routine heparin (porcine) injection 0-8,000 Given 12/06/2019 11:36 PM ED T 2,250 Units Units 0-8,000 Units, Intravenous, BOLUS PER HEPARIN PROTOCOL, Starting on 12/06/19 at 0926, Until Sun12/08/19 at 0901, Per Protocol, START ADJUSTMENT SCHEDULE 6 HOURS AFTER STARTING INFUSION Heparin UFH Level between 0.1 - 0.29 IU/mL: Bolus 2,250 units Heparin UFH Level less than 0.1 IU/mL: Bolus 4,500 units, Routine heparin 25,000 units in Rate/Dose Verify 12/07/2019 12:20 1,100 Uni ts/hr 22 mL/hr sodium chloride 0.45% 500 PM EDT mL infusion 0-5,000 Units/hr (0-100 mL/hr), Intravenous, CONTINUOUS, Starting on 12/06/19 at 0945, Until 12/08/19 at 0901, Begin infusion at 950 units per hr (15 units/kg/hr). MAX INITIAL infusion rate is 1,750 units/hr Target Heparin UFH Level (anti-Xa activity) = 0.3 - 0.7 IU/mL Start adjustment schedule 6 hours after starting infusion. If Heparin UFH Level is: - less than 0.1 IU/mL, administer PRN bolus and increase rate by 250 units per hr (4 units/kg/hr) - 0.1 - 0.29 IU/mL, administer PRN bolus and increase rate by 150 units per hr (2 units/kg/hr) - 0.3 - 0.7 IU/mL, No Change - 0.71 - 0.85 IU/mL, decrease rate by 50 units per hr (1 units/kg/hr) - 0.86 - 1.05 IU/mL, stop infusion for 30 minutes, then decrease rate by 150 units per hr (2 units/kg/hr) - Greater than 1.05 IU/mL, stop infusion for 60 minutes, then decrease rate by 200 units per hour (3 units/kg/hr) Repeat Heparin UFH Level 6 hours after initiating heparin. Then 6 hours after each dose adjustment. When 2 consecutive Heparin UFH Level within target range of 0.3 - 0.7 IU/mL, change Heparin UFH Level to once every 24 hours with A.M. labs while on heparin. RN to order required Heparin UFH Level - Per Protocol, Routine New Bag 12/07/2019 11:23 AM EDT 1,100 Units/hr 22 mL/hr Rate/Dose Verify 12/07/2019 7:04 AM EDT 1,100 Units/hr 22 mL/hr iohexoL (OMNIPAQUE) 350 mg/mL solution 0-200 Given 4:36 PM EDT 65 mLs mL 0-200 mL, Intravenous, ONCE PRN, 1 dose, Starting on 11/30/19 at 1636, Until 11/30/19 at 1636, Per Protocol, Warning Vesicant/Irritant Medication , Radiology Contrast, Routine iohexoL (OMNIPAQUE) 350 mg/mL solution 0-200 Given 10/2019 1:56 PM EDT 84 mLs mL 0-200 mL, Intravenous, ONCE PRN, 1 dose, Starting on Lisandra 12/04/19 at 1356, Until Lisandra 12/04/19 at 1356, Per Protocol, Warning Vesicant/Irritant Medication , Radiology Contrast, Routine lactated ringers infusion New Bag 12/07/2019 1:34 AM EDT 250 mL/hr 250 mL/hr 250 mL/hr, Intravenous, CONTINUOUS, Starting on Marion 12/07/19 at 0145, Until Marion 12/07/19 at 0239 levoFLOXacin (LEVAQUIN) 750 mg in New Bag 11/30/2019 11:03 PM EDT 750 mg 100 mL/hr dextrose 5% 150 mL 750 mg, Intravenous, at 100 mL/hr, EVERY 24 HOURS, First dose on Marion 11/30/19 at 2300, Until Discontinued, Routine lisinopriL (Prinivil;Zestril) tablet 2.5 mg Given 12/08/2019 9:27 AM EDT 2.5 mg 2.5 mg, Oral, DAILY, First dose (after last modification) on 12/08/19 at 0930, Until Discontinued, Routine magnesium sulfate 2 g in sterile water New Bag 11/29/2019 3:26 PM EDT 2 g 25 mL/hr 50 mL 2 g, Intravenous, ONCE, 1 dose, On 11/29/19 at 1530, Administer over 120 Minutes magnesium sulfate 2 g in Rate/Dose Verify 11/30/2019 10:00 PM EDT 25 mL/hr sterile water 50 mL 2 g, Intravenous, ONCE, 1 dose, On 11/30/19 at 2045, Administer over 120 Minutes New Bag 11/30/2019 8:43 PM EDT 2 g 25 mL/hr magnesium sulfate 2 g in sterile water New Bag 12/03/2019 7:00 AM EDT 2 g 25 mL/hr 50 mL 2 g, Intravenous, ONCE, 1 dose, On Sun12/03/19 at 0645, Administer over 120 Minutes magnesium sulfate 2 g in sterile water New Bag 12/04/2019 2:16 AM EDT 2 g 25 mL/hr 50 mL 2 g, Intravenous, ONCE, 1 dose, On Lisandra 12/04/19 at 0230, Administer over 120 Minutes magnesium sulfate 2 g in sterile water New Bag 12/06/2019 5:17 AM EDT 2 g 25 mL/hr 50 mL 2 g, Intravenous, ONCE, 1 dose, On 12/06/19 at 0515, Administer over 120 Minutes magnesium sulfate 2 g in sterile water New Bag 12/07/2019 1:17 PM EDT 2 g 25 mL/hr 50 mL 2 g, Intravenous, ONCE, 1 dose, On Sun12/07/19 at 1330, Administer over 120 Minutes, Minimum infusion duration is 2 hours. melatonin tablet 3 mg Given 12/07/2019 8:52 PM EDT 3 mg 3 mg, Oral, NIGHTLY, First dose on Sun11/30/19 at 2215, Until Discontinued, Routine Given 12/06/2019 8:05 PM EDT 3 mg Given 12/05/2019 8:08 PM EDT 3 mg metoprolol (LOPRESSOR) 5 mg/5 mL injecti on 1 dose, Starting on Sun12/07/19 at 1226, Until Sun12/07/19 at 1241, Amaya Anderson: cabinet override metoprolol (LOPRESSOR) injection 5 mg Given 12/02/2019 10:47 AM EDT 5 mg 5 mg, Intravenous, ONCE, 1 dose, On Sun12/02/19 at 1100, Hold for SBP<90, HR <60 metoprolol (LOPRESSOR) injection 5 mg Given 12/04/2019 11:15 AM EDT 5 mg 5 mg, Intravenous, ONCE, 1 dose, On Lisandra 12/04/19 at 1115 metoprolol (LOPRESSOR) injection 5 mg Given 12/07/2019 12:41 PM EDT 5 mg 5 mg, Intravenous, EVERY 5 MIN PRN, 3 doses, Starting on Sun12/07/19 at 1236, Until Sun12/08/19 at 1811, Elevated Heart Rate, for HR >140, Kelly MARC if SBP < 80 metoprolol succinate XL (Toprol-XL) tablet Given 12/04/2019 11:12 AM EDT 100 mg 100 mg 100 mg, Oral, DAILY, First dose (after last modification) on Lisandra 12/04/19 at 1115, Until Discontinued, DO NOT CRUSH OR OPEN, Routine metoprolol succinate XL (Toprol-XL) tablet Given 12/06/2019 9:55 AM EDT 100 mg 100 mg 100 mg, Oral, 2 TIMES DAILY, First dose (after last modification) on Sun12/05/19 at 2100, Until Discontinued, DO NOT CRUSH OR OPEN, Routine Given 12/05/2019 8:08 PM EDT 100 mg metoprolol succinate XL (Toprol-XL) tablet Given 12/05/2019 10:26 AM EDT 100 mg 100 mg 100 mg, Oral, ONCE, 1 dose, On Sun12/05/19 at 1045, DO NOT CRUSH OR OPEN, Routine metoprolol succinate XL (Toprol-XL) tablet Given 12/06/2019 8:05 PM EDT 100 mg 100 mg 100 mg, Oral, NIGHTLY, First dose on 12/06/19 at 2100, Until Discontinued, DO NOT CRUSH OR OPEN, Routine metoprolol succinate XL (Toprol-XL) tablet Given 12/07/2019 9:25 AM EDT 100 mg 100 mg 100 mg, Oral, 2 TIMES DAILY, First dose on Sun12/07/19 at 0945, Until Discontinued, DO NOT CRUSH OR OPEN, Routine metoprolol succinate XL (Toprol-XL) tablet Given 12/08/2019 9:26 AM EDT 12.5 mg 12.5 mg 12.5 mg, Oral, DAILY, First dose on 12/08/19 at 0930, Until Discontinued, DO NOT CRUSH OR OPEN, Routine metoprolol succinate XL (Toprol-XL) tablet 25 Given 2:07 PM EDT 25 mg mg 25 mg, Oral, ONCE, 1 dose, On Lisandra 12/04/19 at 1415, DO NOT CRUSH OR OPEN, Routine metoprolol succinate XL (Toprol-XL) tablet 50 Given 12:26 PM EDT 50 mg mg 50 mg, Oral, ONCE, 1 dose, On 12/06/19 at 1130, DO NOT CRUSH OR OPEN, Routine metoprolol tartrate (Lopressor) tablet 2 5 mg Given 12/04/2019 5:38 AM EDT 25 mg 25 mg, Oral, EVERY 6 HOURS SCHEDULED, First dose (after last modification) on Sun12/02/19 at 1015, Until Discontinued, Hold for HR <60 or BP < 100, Routine Given 12/04/2019 12:32 AM EDT 25 mg Given 12/03/2019 5:37 PM EDT 25 mg metroNIDAZOLE (FLAGYL) 500 mg in New Bag 12/02/2019 5:55 AM ED T 500 mg 200 mL/hr sodium chloride 0.9% 100 mL 500 mg, Intravenous, EVERY 8 HOURS SCHEDULED, First dose on Sun11/30/19 at 2200, Until Discontinued, Administer over 30 Minutes, Indication for (Active or Suspected): Anaerobic infection-Respiratory New Bag 12/01/2019 9:51 PM EDT 500 mg 200 mL/hr New Bag 12/01/2019 3:31 PM EDT 500 mg 200 mL/hr metroNIDAZOLE (Flagyl) tablet 500 mg Given 12/03/2019 8:37 PM EDT 500 mg 500 mg, Oral, 3 TIMES DAILY, 15 doses, First dose on Sun12/02/19 at 1400, Last dose on Sun12/07/19 at 0900, Routine Given 12/03/2019 3:11 PM EDT 500 mg Given 12/03/2019 8:29 AM EDT 500 mg metroNIDAZOLE (Flagyl) tablet 500 mg Given 12/05/2019 8:08 PM EDT 500 mg 500 mg, Oral, 3 TIMES DAILY, 6 doses, First dose on Sun12/04/19 at 0900, Last dose on Sun12/05/19 at 2100, Routine Given 12/05/2019 4:00 PM EDT 500 mg Given 12/05/2019 10:13 AM EDT 500 mg morphine 2 mg/mL injection syringe 2 mg Given 11/30/2019 11:32 PM EDT 2 mg 2 mg, Intravenous, ONCE, 1 dose, On Sun11/30/19 at 2345, Routine morphine 2 mg/mL injection syringe 2 mg Given 12/01/2019 4:30 AM EDT 2 mg 2 mg, Intravenous, ONCE, 1 dose, On Sun12/01/19 at 0445, Routine nicotine (NICODERM CQ) 14 Given 12/08/2019 9:25 AM EDT 14 mg 09- Arm Upper (Left) mg/24 hr patch 14 mg 14 mg (1 patch), Transdermal, DAILY, First dose on Sun20 at 1615, Until Discontinued, Routine Given 12/07/2019 9:25 AM EDT 14 mg 10- A rm Upper (Right) Given 12/06/2019 9:54 AM EDT 14 mg 09- A rm Upper (Left) nicotine (NICODERM CQ) 14 mg/24 hr patch Patch Removal Transdermal, DAILY, First dose on 07/21 at 1600, Until Discontinued, Remove nicotine 14 mg/24 hr patch nicotine (NICODERM CQ) 14 mg/24 hr patch Patch Verification Transdermal, 2 TIMES DAILY, First dose o n Sun12/01/19 at 0400, Until Discontinued, Verify nicotine 14 mg/24 hr patch. nitroGLYcerin (Nitrostat) disintegrating Given 11/30/2019 9:33 P M EDT 0.4 mg tablet 0.4 mg 0.4 mg, Sublingual, EVERY 5 MIN PRN, Starting on 11/29/19 at 1125, Until Sun12/08/19 at 1811, Chest pain, May repeat every 5 minutes for a total of three doses. Notify provider if chest pain not relieved with nitroglycerin. Do not administer nitroglycerin if the patient has received or taken phosphodiesterase (PDE-5) inhibitors such as sildenafil, tadalafil or vardenafil within the last 24 to 72 hours., Recovery (Recovery-Hospital Unit), Routine nitroGLYcerin 50 mg in Rate/Dose Change 12/01/2019 6:23 AM 20 mcg/min 6 mL/hr dextrose 5% 250 mL EDT infusion 0-200 mcg/min (0-60 mL/hr), Intravenous, CONTINUOUS, Starting on Sun11/30/19 at 2200, Until Sun12/02/19 at 0924, Titrate to angina pain 3/10 or less. Start at 10 mcg/min for pain not responsive to sublingual nitroGLYcerin and morphine and if systolic blood pressure (SBP) is 100 mmHg or greater. Adjust dose 10 mcg/min every 5 minutes if SBP is 100 mmHg or greater. Dose not to exceed 200 mcg/min., Routine Rate/Dose Change 12/01/2019 6:19 AM EDT 40 mcg/min 12 mL/hr Rate/Dose Change 12/01/2019 6:14 AM EDT 60 mcg/min 18 mL/hr nitroGLYcerin 50 mg/250 mL (200 mcg/mL) infusion 1 dose, Starting on 11/30/19 at 2115, Until Sun 11/01 07/21 at 2138, ESTEFANI BAEZA: cabinet override NORepinephrine (LEVOPHED) 4 mg/250 mL (1 6 mcg/mL) infusion 1 dose, Starting on 11/29/19 at 1346, Until 11/29/19 at 1500, Tasneem Stanley (srt): cabinet override NORepinephrine 16 mcg/mL Rate/Dose Change 11/29/2019 1:01 15 mcg/min 56.3 mL/hr (standard ADULT and Pedi PM EDT greater than 20 kg) infusion CONTINUOUS PRN, Starting on 11/29/19 at 1102, Until 11/29/19 at 1328, Cath (Intra-Procedure), Routine New Bag 11/29/2019 11:02 AM EDT 5 mcg/min 18.8 mL/hr NORepinephrine 16 mcg/mL Rate/Dose Verify 12/01/2019 4:00 AM 2 mcg/ min 7.5 mL/hr (standard ADULT and Pedi EDT greater than 20 kg) infusion 0-100 mcg/min (0-375 mL/hr), Intravenous, CONTINUOUS, Starting on 11/29/19 at 1445, Until 12/02/19 at 0919, Titrate to keep MAP greater than 65 mmHg. Start at 2 mcg/min and increase by 2 mcg/min every 3 minutes until goal reached. Do not exceed 200 mcg/min. Warning Vesicant/Irritant Medication, Routine Rate/Dose Verify 12/01/2019 2:00 AM EDT 2 mcg/min 7.5 mL/hr Rate/Dose Verify 12/01/2019 12:00 AM EDT 2 mcg/min 7.5 mL/hr pantoprazole EC (Protonix) tablet 40 mg Given 12/03/2019 8:29 AM EDT 40 mg 40 mg, Oral, 2 TIMES DAILY, First dose on 11/30/19 at 0945, Until Discontinued, DO NOT CRUSH OR OPEN, Routine Given 12/02/2019 8:52 PM EDT 40 mg Given 12/02/2019 8:59 AM EDT 40 mg polyethylene glycoL (Miralax) packet 17 g Given 12/02/2019 5:59 PM EDT 17 g 17 g, Oral, DAILY, First dose on Sun12/02/19 at 1815, Until Discontinued, Routine polyethylene glycoL (Miralax) packet 17 g 17 g, Oral, DAILY PRN, Starting on Sun at 0615, Until Sun12/08/19 at 1811, Constipation, Routine potassium chloride ER (K-Dur/Klor-Con) tablet Given 1:54 PM EDT 20 mEq 20 mEq 20 mEq, Oral, EVERY 4 HOURS PRN, Starting on Sun11/30/19 at 2017, Until Sun12/08/19 at 1811, hypokalemia, Administer for serum potassium (mMol/L) of 3.9 - 4 See instructions for Potassium Protocol in online policies., Routine Given 12/08/2019 2:30 AM EDT 20 mEq Given 12/07/2019 4:45 PM EDT 20 mEq potassium chloride ER (K-Dur/Klor-Con) tablet Given 6:30 AM EDT 40 mEq 40 mEq 40 mEq, Oral, EVERY 4 HOURS PRN, Starting on Sun11/30/19 at 2017, Until Sun12/08/19 at 1811, hypokalemia, Administer for serum potassium (mMol/L) of 3.6 - 3.8 See instructions for Potassium Protocol in online policies., Routine Given 12/03/2019 3:11 PM EDT 40 mEq Given 11/30/2019 8:44 PM EDT 40 mEq potassium chloride ER (K-Dur/Klor-Con) tablet Given 6:25 AM EDT 40 mEq 40 mEq 40 mEq, Oral, ONCE, 1 dose, On Sun12/03/19 at 0645, 20 mEq tablet may be dissolved in water for administration, Routine sodium chloride 0.9 % (flush) flush 5 mL Given 12/08/2019 9:28 AM EDT 5 mLs 5 mL, Intravenous, 2 TIMES DAILY, First dose on 11/29/19 at 1330, Until Discontinued, Routine Given 12/05/2019 9:00 PM EDT 5 mLs Given 12/05/2019 10:15 AM EDT 5 mLs sodium chloride 0.9% 1,000 mL IV bolus New Bag 11/29/2019 3:22 PM EDT 500 mL/hr at 500 mL/hr, Intravenous, ONCE, 1 dose, On 11/29/19 at 1530 sodium chloride 0.9% 1,000 mL Rate/Dose Verify 11/29/2019 9:00 PM E DT 500 mL/hr IV bolus at 500 mL/hr, Intravenous, ONCE, 1 dose, On 11/29/19 at 1930 Continued Bag 11/29/2019 7:30 PM EDT 500 mL/hr sodium chloride 0.9% 1,000 mL Rate/Dose Verify 11/30/2019 1:00 AM E DT 500 mL/hr IV bolus at 500 mL/hr, Intravenous, ONCE, 1 dose, On 11/30/19 at 0000 New Bag 11/30/2019 12:01 AM EDT 500 mL/hr documented in this encounter Active and Recently Administered Medications Times are shown in EDT. Scheduled Medication Order 12/06/2019 12/07/2019 12/08/2019 AMIOdarone (CORDARONE) bolus from bag 150 mg (COMPLETED) 1311 (Bolus from Bag - Provider: Amaya Anderson RN) 150 mg, Intravenous, ONCE, 1 dose, Sun at 1315, Warning Vesicant/Irritant Medication , Routine AMIOdarone (Cordarone; Pacerone) tablet 400 mg 1228 (Given - Provider: Amaya Anderson RN) 400 mg, Oral, 2 TIMES DAILY, First dose on Sun12/08/19 at 1230, Until Discontinued, Routine apixaban (Eliquis) tablet 5 mg 0 925 (Given - Provider: Amaya Anderson RN) 5 mg, Oral, 2 TIMES DAILY, First dose on Sun12/08/19 at 0930, Until Discontinued, Anticoagulant, Routine aspirin chewable tablet 81 mg 0955 (Given - Provider: Amaya contreras RN) 0824 (Given - Provider: Amaya Anderson RN) 0925 (Given - Provider: Amaya Anderson RN) 81 mg, Oral, DAILY, First dose on 07/21 at 1645, Until Discontinued, Routine cholecalciferol (Vitamin D3) (Vitamin D3) tablet 1,000 Units 0954 (Given - Provider: Amaya Anderson RN) 0824 (Given - Provider: Amaya Anderson RN) 0925 (Given - Provider: Amaya Anderson RN) 1,000 Units, Oral, DAILY, First dose on Sun11/29/19 at 1330, Until Discontinued, 40 units is equivalent to 1 mcg of cholecalciferol., Routine clopidogreL (Plavix) tablet 75 mg 0955 (Given - Provider: Rebecca Anderson RN) 08 (Given - Provider: Amaya Anderson RN) 09 (Given - Provider: Amaya Anderson RN) 75 mg, Oral, DAILY, First dose on Sun at 0900, Until Discontinued, Recovery (Recovery-Hospital Unit), Routine colchicine (Colcrys) tablet 0.6 mg (CANCELED) 953 (Gi lizett - Provider: Amaya Anderson RN) 822 (Given - Provider: Amaya Anderson RN) 0.6 mg, Oral, DAILY, First dose (after l ast modification) on Sun12/03/19 at 0900, Until Discontinued, Maximum dose: 2.4 mg/24 hours. DO NOT SPLIT, CRUSH OR OPEN, STAT ezetimibe (Zetia) tablet 10 mg 953 (Given - Provider: Amaya noel RN) 08 (Given - Provider: Amaya Anderson RN) 104 (Given - Provider: Amaya Anderson RN - Comment: pharmacy delay) 10 mg, Oral, DAILY, First dose on 07/21 at 1000, Until Discontinued, Routine furosemide (Lasix) tablet 20 mg (CANCELED) 1914 (Given - Provider: Amaya Anderson RN) 08 (Given - Provider: Amaya Anderson RN) 0900 (Not Giv en - Provider: Amaya Anderson RN - Reason: Per MD Order) 20 mg, Oral, DAILY, First dose on 12/19 at 1730, Until Discontinued, Routine furosemide (Lasix) tablet 20 mg 20 mg, Oral, EVERY OTHER DAY, First dose (after last modification) on Sun12/09/19 at 0900, Until Discontinued, Routine lisinopriL (Prinivil;Zestril) tablet 2.5 mg 926 (Given - Provider: Amaya Anderson RN) 2.5 mg, Oral, DAILY, First dose (after l ast modification) on Sun12/08/19 at 0930, Until Discontinued, Routine magnesium sulfate 2 g in sterile water 50 mL (COMPLETE D) 0517 (New Bag - Provider: Mukesh Bentley RN)0717 (Stopped - Provider: Amaya Anderson RN) 2 g, Intravenous, ONCE, 1 dose, 12/06/19 at 0515, Ad territory representative over 120 Minutes magnesium sulfate 2 g in sterile water 50 mL (COMPLETED) 1317 (New Bag - Provider: Amaya Anderson RN)1517 (Stopped - Provider: Amaya Anderson RN) 2 g, Intravenous, ONCE, 1 dose, Sun at 1330, Administer over 120 Minutes, Minimum infusion duration is 2 hours. melatonin tablet 3 mg 2004 (Given - Provider: Mukesh fernandes RN) 2051 (Given - Provider: Russell Ventura RN) 3 mg, Oral, NIGHTLY, First dose on Sun at 2215, Until Discontinued, Routine metoprolol succinate XL (Toprol-XL) tablet 100 mg (CAN CELED) 954 (Given - Provider: Amaya Anderson RN) 100 mg, Oral, 2 TIMES DAILY, First dose (after last modification) on Sun12/05/19 at 2100, Until Discontinued, DO NOT CRUSH OR OPEN, Routine metoprolol succinate XL (Toprol-XL) tablet 100 mg (CAN CELED) 2004 (Given - Provider: Mukesh Bentley RN) 100 mg, Oral, NIGHTLY, First dose on 12/06/19 at 2100, Until Discontinued, DO NOT CRUSH OR OPEN, Routine metoprolol succinate XL (Toprol-XL) tablet 100 mg (CANCELED) 924 (Given - Provider: Amaya Anderson RN) 100 mg, Oral, 2 TIMES DAILY, First dose on 12/07/19 at 0945, Until Discontinued, DO NOT CRUSH OR OPEN, Routine metoprolol succinate XL (Toprol-XL) tablet 12.5 mg 925 (Given - Provider: Amaya Anderson RN) 12.5 mg, Oral, DAILY, First dose on 12/08/19 at 0930, Until Discontinued, DO NOT CRUSH OR OPEN, Routine metoprolol succinate XL (Toprol-XL) tablet 50 mg (COMP LETED) 1226 (Given - Provider: Amaya Anderson RN) 50 mg, Oral, ONCE, 1 dose, 12/06/19 at 1130, DO NOT CRUSH OR OPEN, Routine nicotine (NICODERM CQ) 14 mg/24 hr patch 14 mg(Linked Group 1) 0954 (Given - Provider: Amaya Anderson RN) 0925 (Given - Provider: Amaya Anderson RN) 0925 (Given - Provider: Amaya Anderson RN) 14 mg (1 patch), Transdermal, DAILY, Fir st dose on 11/30/19 at 1615, Until Discontinued, Routine nicotine (NICODERM CQ) 14 mg/24 hr patch Patch Removal (Linked Group 1) 0900 (Patch Not Removed (add comment) - Provider: Amaya Anderson RN - Comment: not present upon assessment) 0900 (Patch Removed - Provider: Amaya Anderson RN) 0900 (Patch Removed - Provider: Amaya Anderson RN) Transdermal, DAILY, First dose on 07/21 at 1600, Until Discontinued, Remove nicotine 14 mg/24 hr patch nicotine (NICODERM CQ) 14 mg/24 hr patch Patch Verific ation(Linked Group 1) 0900 (Patch (dose and location) verified - Provider: Amaya Anderson RN)2100 (Patch (dose and location) verified - Provider: Mukesh Bentley RN) 0900 (Patch (dose and location) verified - Provider: Amaya Anderson RN)2100 (Patch (dose and location) verified - Provider: Russell Ventura RN) 0900 (Patch (dose and location) verified - Provider: Amaya Anderson RN) Transdermal, 2 TIMES DAILY, First dose o n 12/01/19 at 0400, Until Discontinued, Verify nicotine 14 mg/24 hr patch. sodium chloride 0.9 % (flush) flush 5 mL 0900 (Not Giv en - Provider: Amaya Anderson RN - Reason: Order parameters not met)2100 (Not Given - Provider: Mukesh Bentley RN - Reason: See comment - Comment: IV infusing) 0900 (Not Given - Provider: Amaya Anderson RN - Reason: Order parameters not met)2100 (Not Given - Provider: Russell Ventura RN - Reason: See comment - Comment: IVs infusing) 0928 (Given - Provider: Amaya Anderson RN) 5 mL, Intravenous, 2 TIMES DAILY, First dose on 11/29/19 at 1330, Until Discontinued, Routine Continuous Medication Order 12/06/2019 12/07/2019 12/08/2019 AMIOdarone (CORDARONE) 450 mg in non-PVC dextrose 5% 2 50 mL infusion (CANCELED) 1322 (New Bag - Provider: Nereyda Rice N)1654 (New Bag - Provider: Amaya Anderson RN)1922 (Rate/Dose Change - Provider: Amaya Anderson RN) 0506 (New Bag - Provider: Russell Ventura, NIURKA)1228 (Stopped - Provider: Amaya Anderson RN) 1 mg/min (33.3333 mL/hr, rounded to 33.3 mL/hr), Intravenous, CONTINUOUS, Starting 12/07/19 at 1315, Until 12/08/19 at 1203, 1mg/min for 6hrs, then 0.5mg/min for 18hrs. After first 24hours, order ma intenance dose 0.5 mg/min. Use in-line f ilter. If new bag needed, RN must request via Med Message one hour before current bag will be empty to allow for pharmacy preparation heparin 25,000 units in sodium chloride 0.45% 500 mL i nfusion (CANCELED) 1039 (New Bag - Provider: Amaya Anderson RN)1653 (Rate/Dose Verify - Provider: Amaya Anderson RN)2335 (Rate/Dose Change - Provider: Mukesh Bentley RN) 0704 (Rate/Dose Verify - Provider: Amaya Anderson, NIURKA)1123 (New Bag - Provider: Amaya Anderson, NIURKA)1220 (Rate/Dose Verify - Provider: Amaya Anderson, NIURKA) 0921 (Stopped - Provider: Amaya Anderson RN) 0-5,000 Units/hr (0-100 mL/hr), Intraven ous, at 0-100 mL/hr, CONTINUOUS, Starting 12/06/19 at 0945, Until 12/08/19 at 0901, Begin infusion at 950 units per hr (15 units/kg/hr). MAX INITIAL infusion rate is 1,750 units/hr Target Heparin UF H Level (anti-Xa activity) = 0.3 - 0.7 IU/mL Start adjustment schedule 6 hours after starting infusion. If Heparin UFH Level is: - less than 0.1 IU/mL, administer PRN bolus and increase rate by 250 unit s per hr (4 units/kg/hr) - 0.1 - 0.29 IU/mL, administer PRN bolus and increase rate by 150 units per hr (2 units/kg/hr) - 0.3 - 0.7 IU/mL, No Change - 0.71 - 0.85 IU/mL, decrease rate by 50 units per hr (1 units/kg/hr) - 0.86 - 1.05 IU/mL, stop infusion for 30 minutes, then decrease rate by 150 units per hr (2 units/kg/hr) - Greater than 1.05 IU/mL, stop infusio n for 60 minutes, then decrease rate by 200 units per hour (3 units/kg/hr) Repeat Heparin UFH Level 6 hours after initiating heparin. Then 6 hours after each dose adjustment. When 2 consecutive Heparin UFH Level within target range of 0.3 - 0 .7 IU/mL, change Heparin UFH Level to once every 24 hours with A.M. labs while on heparin. RN to order required Heparin UFH Level - Per Protocol, Routine lactated ringers infusion (CANCELED) 013 4 (New Bag - Provider: Mukesh Bentley RN)0239 (Stopped - Provider: Mukesh Bentley RN) 250 mL/hr, at 250 mL/hr, Intravenous, CO NTINUOUS, Starting 12/07/19 at 0145, Until 12/07/19 at 0239 PRN Medication Order 12/06/2019 12/07/2019 12/08/2019 acetaminophen (Tylenol) tablet 650 mg 650 mg, Oral, EVERY 4 HOURS PRN, Startin g 11/29/19 at 1306, Until 12/08/19 at 1811, Pain, Headaches, Maximum dose of acetaminophen is 4000 mg from all sources in 24 hours., Routine diphenhydrAMINE (BENADRYL) injection 50 mg 50 mg, Intravenous, EVERY 2 HOURS PRN, S tarting 12/01/19 at 1348, Until Sun12/08/19 at 1811, Itching, hives and itching, Notify service if given. May give up to 400 mg per day, Routine heparin (porcine) injection 0-8,000 Units (CANCELED) 2 336 (Given - Provider: Mukesh Bentley, RN) 0-8,000 Units, Intravenous, BOLUS PER [place] PROTOCOL, Starting 12/06/19 at 0926, Until Sun12/08/19 at 0901, Per Protocol, START ADJUSTMENT SCHEDULE 6 HOURS AFTER STARTING INFUSION Heparin UFH Lev el between 0.1 - 0.29 IU/mL: Bolus 2,250 units Heparin UFH Level less than 0.1 IU/mL: Bolus 4,500 units, Routine lidocaine (XYLOCAINE) 10 mg/mL (1 %) injection 3 mg 3 mg (0.3 mL), Subcutaneous, ONCE PRN, 1 dose, Starting 11/29/19 at 1303, Until Sun12/08/19 at 1811, for discomfort with PIV insertion, Routine metoprolol (LOPRESSOR) injection 5 mg 1241 (Give n - Provider: Amaya Anderson RN) 5 mg, Intravenous, EVERY 5 MIN PRN, 3 do ses, Starting 12/07/19 at 1236, Until Sun12/08/19 at 181, Elevated Heart Rate, for HR >140, Kelly MARC if SBP < 80 nitroGLYcerin (Nitrostat) disintegrating tablet 0.4 mg 0.4 mg, Sublingual, EVERY 5 MIN PRN, Sta rting 11/29/19 at 1125, Until Sun12/08/19 at 181, Chest pain, May repeat every 5 minutes for a total of three doses. Notify provider if chest pain not relieved with nitroglycerin. Do not administer n itroglycerin if the patient has received or taken phosphodiesterase (PDE-5) inhibitors such as sildenafil, tadalafil or vardenafil within the last 24 to 72 hours., Recovery (Recovery-Hospital Unit), Routine polyethylene glycoL (Miralax) packet 17 g 17 g, Oral, DAILY PRN, Starting Wed at 0615, Until Sun12/08/19 at 181, Constipation, Routine potassium chloride ER (K-Dur/Klor-Con) tablet 20 mEq(Linked Group 2) 0630 (See Alternative - Provider: Mukesh Bentley RN)1645 (Given - Provider: Amaya Anderson RN) 0230 (Given - Provider: Russell Ventura RN)1354 (Given - Provider: Amaya Anderson RN) 20 mEq, Oral, EVERY 4 HOURS PRN, Startin g 11/30/19 at 2017, Until 12/08/19 at 1811, hypokalemia, Administer for serum potassium (mMol/L) of 3.9 - 4 See instructions for Potassium Protocol in online policies., Routine potassium chloride ER (K-Dur/Klor-Con) tablet 40 mEq(Linked Group 2) 0630 (Given - Provider: Mukesh Bentley RN)1645 (See Alternative - Provider: Amaya Anderson RN) 0230 (See Alternative - Provider: Shana Ventura RN)1354 (See Alternative - Provider: Amaya Anderson RN) 40 mEq, Oral, EVERY 4 HOURS PRN, Startin g 11/30/19 at 2017, Until 12/08/19 at 1811, hypokalemia, Administer for serum potassium (mMol/L) of 3.6 - 3.8 See instructions for Potassium Protocol in online policies., Routine sodium chloride 0.9 % (flush) flush 5-20 mL 5-20 mL, Intravenous, EVERY 1 MIN PRN, S tarting 11/29/19 at 1303, Until 12/08/19 at 1811, flush, Flush pertains to all indwelling lines. Flush per protocol found in the job aid using the link provided on this medication record., Routine Linked Groups Order Group 1: nicotine (NICODERM CQ) 14 mg/24 hr patch 14 mgJump to med 14 mg (1 patch), Transdermal, DAILY, Fir st dose on 11/30/19 at 1615, Until Discontinued, Routine And nicotine (NICODERM CQ) 14 mg/24 hr patch Patch VerificationJump to med Transdermal, 2 TIMES DAILY, First dose o n 12/01/19 at 0400, Until Discontinued
Verify nicotine 14 mg/24 hr patch.
And nicotine (NICODERM CQ) 14 mg/24 hr patch Patch RemovalJump to med Transdermal, DAILY, First dose on 07/21 at 1600, Until Discontinued
Remove nicotine 14 mg/24 hr patch
Group 2: potassium chloride ER (K-Dur/Klor-Con) tablet 20 mEqJump to med 20 mEq, Oral, EVERY 4 HOURS PRN, Startin g [place] 11/30/19 at 2016, Until Sun12/08/19 at 1811, hypokalemia
Administer for serum potassium (mMol/L) of 3.9 - 4 See instructions for Potassium Protocol in online policies.
Routine Or potassium chloride ER (K-Dur/Klor-Con) tablet 40 mEqJump to med 40 mEq, Oral, EVERY 4 HOURS PRN, Startin g [place] 11/30/19 at 2016, Until Sun12/08/19 at 1811, hypokalemia
Administer for serum potassium (mMol/L) of 3.6 - 3.8 See instructions for Potassium Protocol in online policies.
Routine documented in this encounter Care Teams Bull Wheel Worker Relationship Specialty Start Date End Date France Lam MD PCP - General 05/02/13 02/04/20 [address] [place] [address] documented as of this encounter
--- OUTSIDE RECORDS SUMMARY | 2022-03-16 11:03 | XMS_ITS | Encounter Summary ---
:1945 Author Organization [facility] [place] [address] Care Team Providers Name Role Phone France Lam MD Primary Care Provider Encounter Details Date Type Department Care Team Description 11/30/2019 Orders Only Cardiology [facility] [place] [address] Social History Tobacco Use Types Packs/Day Years Used Date Current Every Day Smoker Cigars 0.5 Sex Assigned at Date Recorded Not on file documented as of this encounter Plan of Treatment Not on filedocumented as of this encounter Procedures Procedure Name Priority Date/Time Associated Diagnosis Comme nts ECHOCARDIOGRAM Routine 11/30/2019 Results for t his TRANSTHORACIC procedure are in the results section. documented in this encounter Results Echo Transthoracic (Complete) (11/30/2019) Anatomical Region Laterality Modality Other Specimen (Source) Anatomical Location Collection Method / Collectio n Time Received Time / Laterality Volume 11/30/2019 Narrative 11/30/2019 12:54 PM EDT Procedure: ?Transthoracic Echocardiogram Patient: ?domenica fajardo ? (Age): 1945(74y) Med Rec#: ? [id number] ?Sex: ?M ? Site Loc: ? Ht / Wt: ??(cm)/ (kg) ? Pt. Loc: ? Study Date: ?? 11/29/2019 ?Pt. Type: Tape: ? Referring: Faustino Garduno Reading: Dawit Mejia ([id number]) Auto Inspection Specialist: [employer] Planner: Cedric Eric ([id number]) Interpreting Fellow: Cedric Eric ([phone]) Diagnosis: SUMMARY: 1. Limited bedside echocardiogram perfor med by front office representative airport skilled maintenance supervisor for hypotension following inferior STEMI . 2. Global left ventricular systolic func tion is mildly reduced with visually estimated ejection fraction of 45%. There are left ventricular segmental wall motion abnormalities pres ent, as shown in the diagram below. 3. The right ventricular global systolic function is moderately reduced. The free wall of the right ventricle rishabh ears akinetic. 4. There is no pericardial effusion. Findings ? : Left Ventricle: ? The left ventricle is borderline dilated. ?Left ventricular wall thickness is normal. ?Global left ventricular systolic f unction is mildly reduced. Ejection fraction is estimated to be 45% . ?There are left ventricular segment al wall motion abnormalities present, as shown in the diagram below. ?The ??mid anteroseptal, mid infero septal, and ??apical inferior wall segments are hypokinetic (score 2). ?The ??basal inferolateral, basal i nferior, mid inferolateral, and mid inferior wall segments are akinetic (score 3). ?Overall wallmotion score index is ??1.69 Right Ventricle: ? The right ventric le is normal in size. ?Right ventricular global systolic function is moderately reduced. ?There are right ventricular segmen juan wall motion abnormalities. ?The free wall of the right ventric le appears akinetic. ?Pulmonary artery hypertension coul d not be assessed due to inadequate tricuspid regurgitation jet. Aortic Valve: ? The aortic valve is probably tricuspid. ?Systolic excursion of the aortic v alve is normal. ?There is no evidence of aortic renetta ve stenosis. ?There is no evidence of aortic reg urgitation. Mitral Valve: ? The mitral valve alireza flets appear normal. ?The mitral valve leaflets do not a ppear thickened. ?There is no evidence of mitral abby nosis. ?There is trace mitral regurgitatio n present. Pericardium: ? There is no pericardi al effusion. Wall Motion: Segment Name ?Rest ? Base-Anteroseptal ?? Normal ? Base-Anterior ? Normal ? Base-Anterolateral ??Normal ? Base-Posterolateral Akinetic ? Base-Inferior ? Akinetic ? Base-Inferoseptal ?? Normal ? Mid-Anteroseptal ?Hypokinetic ? Mid-Anterior ?Normal ? Mid-Anterolateral ?? Normal ? Mid-Posterolateral ??Akinetic ? Mid-Inferior ?Akinetic ? Mid-Inferoseptal ?Hypokinetic ? [place]win-Septal ? Normal ? [place]-Anterior ? Normal ? [place]-Lateral ?Normal ? [place]-Inferior ? Hypokinetic ? [place]-Tip ?Normal ? This report has been electronically sign ed by: _ Dawit Mejia MD ? 11/30/2019 12: 53:59 Images reviewed and interpretation rafaela [email or web address] [facility] Procedure Note Dawit Mejia MD - 11/30/2019Formatti ng of this note might be different from the original. Procedure: Transthoracic Echocardiogram Patient: domenica ACOSTA(Age): [age]y) Med Rec#: [id number] Sex: M Site Loc: Ht / Wt: (cm)/ (kg) Pt. Loc: Study Date: 11/29/2019 Pt. Type: Tape: Referring: Faustino Garduno Reading: Dawit Mejia ([id number]) Auto Inspection Specialist: [employer] Planner: Cedric Eric ([id number]) Interpreting Fellow: Cedric Eric ([phone]) Diagnosis: SUMMARY: 1. Limited bedside echocardiogram perfor med by front office representative airport skilled maintenance supervisor for hypotension following inferior STEMI . 2. Global left ventricular systolic func tion is mildly reduced with visually estimated ejection fraction of 45%. There are left ventricular segmental wall motion abnormalities pres ent, as shown in the diagram below. 3. The right ventricular global systolic function is moderately reduced. The free wall of the right ventricle rishabh ears akinetic. 4. There is no pericardial effusion. Findings : Left Ventricle: The left ventricle is guido rderline dilated. Left ventricular wall thickness is norm al. Global left ventricular systolic functi on is mildly reduced. Ejection fraction is estimated to be 45% . There are left ventricular segmental wa ll motion abnormalities present, as shown in the diagram below. The mid anteroseptal, mid inferoseptal, and apical inferior wall segments are hypokinetic (score 2). The basal inferolateral, basal inferior , mid inferolateral, and mid inferior wall segments are akinetic (score 3). Overall wallmotion score index is 1.69 Right Ventricle: The right ventricle is normal in size. Right ventricular global systolic funct ion is moderately reduced. There are right ventricular segmental w all motion abnormalities. The free wall of the right ventricle ap pears akinetic. Pulmonary artery hypertension could not be assessed due to inadequate tricuspid regurgitation jet. Aortic Valve: The aortic valve is probab ly tricuspid. Systolic excursion of the aortic valve is normal. There is no evidence of aortic valve st enosis. There is no evidence of aortic regurgit ation. Mitral Valve: The mitral valve leaflets appear normal. The mitral valve leaflets do not appear thickened. There is no evidence of mitral stenosis . There is trace mitral regurgitation pre sent. Pericardium: There is no pericardial eff usion. Wall Motion: Segment Name Rest Base-Anteroseptal Normal Base-Anterior Normal Base-Anterolateral Normal Base-Posterolateral Akinetic Base-Inferior Akinetic Base-Inferoseptal Normal Mid-Anteroseptal Hypokinetic Mid-Anterior Normal Mid-Anterolateral Normal Mid-Posterolateral Akinetic Mid-Inferior Akinetic Mid-Inferoseptal Hypokinetic [place]-Septal Normal Potwin-Anterior Normal Pot[place]-Lateral Normal [place]-Inferior Hypokinetic [place]-Tip Normal This report has been electronically sign ed by: _ Dawit Mejia MD 11/30/2019 12:53:59 Images reviewed and interpretation verif ied [facility] Unknown ECHO ORDERABLES documented in this encounter Visit Diagnoses Not on filedocumented in this encounter Care Teams Network Professional Relationship Specialty Start Date End Date France Lam MD PCP - General 05/02/13 02/04/20 [address] [place] [address] documented as of this encounter
--- OUTSIDE RECORDS SUMMARY | 2022-03-16 11:04 | XMS_ITS | Encounter Summary ---
:1945 [place] [address] Care Team Providers Name Role Phone France Lam MD Primary Care Provider Reason for Visit Auth/Cert Specialty Diagnoses / Procedures Referred By Contact Refer red To Contact Diagnoses STEMI (ST elevation myocardial infarction) STEMI Procedures CARDIAC CATHETERIZATION Referral ID Status Reason Start Date Expiration Date Visits Requ ested Visits Authorized [id number] 1 1 Encounter Details Date Type Department Care Team Description 11/29/2019 Surgery School Leader Gretchen Corral, CARDIAC CATHETERIZATION [facility] [place] [address] [place] [id number] [phone] (Wo rk) Social History Tobacco Use Types Packs/Day Years Used Date Current Every Day Smoker Cigars 0.5 Sex Assigned at Date Recorded Not on file documented as of this encounter Last Filed Vital Signs Vital Sign Reading Time Taken Comments Blood Pressure 101/64 11/29/2019 9:07 AM EDT Pulse 81 11/29/2019 9:07 AM EDT Temperature - - Respiratory Rate 15 11/29/2019 10:40 AM EDT Oxygen Saturation 95% 11/29/2019 10:40 AM EDT Inhaled Oxygen Concentration - - Weight - - Height - - Body Mass Index - - documented in this encounter Discharge Summaries Riki Stevens MD - 12/08/2019 3:08 PM EDT Images from the original note were not included. Discharge Summary Patient Name: Angel Luis Salinas Patient Age: 74 y.o. Language: Tajik Race: White Ethnicity: Not nor Admit date: [...] months on: antiplatelet therapy at discretion of wool grower - Repeat TTE in 3 months to reassess LV function - Repeat BMP in 1-2 weeks given recent start lisinopril - Referred to lipid clinic for consideration of PCSK-9 inhibitor given STEMI with intolerance of statins - Started on amiodarone this admission for recurrent rapid atrial flutter with rates ~170, recommendcontinued assessment of necessity of rhythm control strategy with wool grower - Amiodarone monitoring recommendations as below - [...] contact your inpatient physician through the [facility] Early Childhood Education Specialist . Issues after hours and on weekends [...] morning with severe crushing substernal chest pain 04/10. He took two full strength aspirinand came to [facility] ED. At there was found to have [...] Compazine. He was transferred directly to [facility] via [facility] for further management. Patient had an emergent PCI with 3 MACARIO stents placed to his RCA, with mild disease of LCX (report pending) at [facility]. He was found to be persistently hypotensive requiring Levo up to 10mcg/min. He was transferred to [facility] after the cath procedure. Bedside RHC showed CI 2.12, PAWP 11, PAP 38/15 indicating hypovolemic state. He received 1L bolus of NS with improvement of his blood pressure to 124/61. History of PAD, HLD - had side reactions to statins - so taking niacin and red rye grain. Chronic active smoker with more than 65 pack years. Family history of HI in father and two uncles. He's takingbaby [...] as well as ASA/Plavix load and heparin ip as described above. On arrival at [facility] he was taken for cardiac cath where [...] priority for the procedure was Emergent. [facility] was [facility] (after [...] contact the number below. Electronically signed by: Estefani Harris [facility] ([phone]), at 11/29/2019 4:[address] Head wo Contrast (Generic) (Exam End: 11/30/2019 10:41 AM) Impression Focal hemorrhage with small amount of adjacent edema projecting in the region of the left optic tract. Thank you for letting us participate in the care of this patient. For questions regarding this report, please contact the number below. Electronically signed by: Angel Luis Barboza MD, [facility] ([phone]), at 11/30/2019 12:[address] Head wo [...] below. Electronically [facility]: [facility] ([phone]), at 11/30/2019 5:[address] Angiogram [place] (Exam End: 11/30/2019 4:36 PM) Impression Head CT: Stable hemorrhage in the region of the left optic tract. CTA: Negative exam. No abnormal vasculature in the area of hemorrhage. Thank you for letting us participate in the care of this patient. For questions regarding this report, please contact the number below. Electronically signed by: Angel Luis Barboza MD, [facility] ([phone]), at 11/30/2019 5:04 PM MRI Brain wo [...] Electronically signed by: Angel Luis Barboza MD, [facility] ([phone]), at 12/01/2019 8:02 PM XR Chest One [...] contact the number below. Electronically signed by: Latoya Ivey, [facility] ([phone]), at 11/30/2019 8:[address] Head wo Contrast (Generic) (Exam End: 12/01/2019 [...] contact the number below. Electronically signed by: Merari Collins [facility] ([phone]), at 12/01/2019 3:53 PM XR Chest One View (Exam End: 12/02/2019 1:00 PM) Impression Slightly increased small bibasilar pleural effusions and atelectasis. Thank you for letting us participate in the care of this patient. For questions regarding this report, please contact the number below. Electronically signed by: Ashly Marley [facility] ([phone]), at 12/02/2019 1:[address] Cardiac for Morphology & Function (Exam End: [...] contact the number below. Electronically signed by: Roselyn Luciano [facility] ([phone]), at 12/04/2019 6:16 PM MRI Brain wwo Contrast (Generic) (Exam End: 12/05/2019 7:59 PM) Impression No significant interval change. Thank you for letting us participate in the care of this patient. For questions regarding this report, please contact the number below. Electronically signed by: Merari Collins [facility] ([phone]), at 12/05/2019 10:[address] Head wo Contrast (Generic) (Exam End: 12/06/2019 [...] contact the number below. Electronically signed by: Merair Collins [facility] ([phone]), at 12/06/2019 10:06 PM Pending Studies and Lab Data: N/A Discharge Conditions/Prognosis: stable Discharge to: home Updated Allergies/ADRs: Allergies Allergen Reactions ??? Penicillins Pt doesn't remember reaction ??? Eatfqel-Ysh-Yep Reductase Inhibitors Stiff neck, upset stomach, back [...] at another hospital and then at [facility] you had a stent placed in a [...] FOR ONE MONTH AND THEN STOP. Your wool grower may tell you to start this medication again after one year. Clopidogrel (Plavix) 75 mg daily - This medication will help prevent clots from forming in your blood, which will help protect the stent that was placed in your heart vessel. TAKE THIS FOR ONE YEAR ANDTHEN DISCUSS WITH YOUR SENIOR QUALITY CONTROL INSPECTOR WHETHER TO STOP. Amiodarone 400mg twice daily [...] follow up: Your primary care provider and wool grower will manage your blood thinner (apixaban). You do not need lab monitoring of this medication. Diet: Please consume a healthy diet low in cholesterol Follow up Appointments: 12/10/2019 at 3:10PM with PCP Angel Luis Lott Future Appointments Date Time Provider Department Center 12/23/2019 1:30 PM Alfreda Salas APRN [facility] [id number] 12/26/2019 9:40 AM Merlin Sanchez MD [facility] CARD 4A [facility] 12/30/2019 3:40 PM Gretchen Yoon MD [address] Future Appointments and Orders Future Appointments and Orders Future Appointments Provider Department Dept Phone 12/23/2019 1:30 PM Alfreda Salas APRN Neurosurgery at [facility] Arrive at: Home [phone] Please do not come in for this visit. Your provider will call you at the number you provided. 12/26/2019 9:40 AM Merlin Sanchez MD Cardiology at [facility] Arrive at: Home [phone] Please do not come in for this visit. Your provider will call you at the number you provided. 12/30/2019 3:40 PM Gretchen Yoon MD Cardiology at [facility] Arrive at: Home [phone] Please do not come in for this visit. Your provider will call you at the number you provided. Future Orders Complete By Expires Referral to Cardiac Rehab [CBQ150 Custom] As directed Process Instructions: If no progress note charted, please enter Clinical details in comments. Scheduling Instructions: Questions: My question or request is: STEMI. Cardiac rehab at [facility] Referral to [facility] [REF43 Custom] As directed Process Instructions: If no progress note charted, please enter Clinical details in comments. Scheduling Instructions: Questions: My question or request is: patient with inferior stemi with history of statin allergy (rash) - please evaluate for psck9 inhibitor. Referral to Home Health - at DISCHARGE [WDC9333 CPT(R)] As directed Process Instructions: Scheduling Instructions: Comments: DOCUMENTATION FOR VNA SERVICES PATIENT'S LOCATION: Angel Luis Corcoran [address] [address] (home) Interpreter Deaf's Name: Self In discussion with the attending physician, it is certified that this patient is under his/her care and that MD, or an RESERVOIR CARETAKER, BUS OPERATOR, or PA who is working directly with him/her, had a yepb-gd-etzt encounter that meets the physician ydeb-ux-roha encounter requirements with this patient on 12/07/2019. [...] for managing ADLs. HOME HEALTH CARE AGENCY: [facility], PHONE: [phone] FAX: [phone] Start of care: 24-48 hours after hospital [...] MD [address] / [place] [id number] All A agencies which cover the area of patient's residence have been reviewed, either verbally or in writing, and patient/family have chosen the home health care agency noted. Questions: Agency name and contact information: [facility] Patient location post discharge: Home What services are requested: Registered Nurse Physical Therapy Occupational Therapy Start date: Responsible MD post discharge contact info: PCP Your PCP: France Lam MD [phone] For questions regarding this document or issues relating to this hospitalization on the Cardiology Service, please contact your inpatient physician through the [facility] Early Childhood Education Specialist . Issues after hours and on weekends will be handled by the Mds Manager on-call. Patient Instructions: Neurology Your Diagnosis: Left [...] follow-up appointment in the neurology clinic at [facility]. See below for the appointment time. If [...] PM Alfreda Salas APRN Neurosurgery at [facility] Arrive at: Home [phone] Please do not come in for this visit. Your provider will call you at the number you provided. 12/26/2019 9:40 AM Merlin Sanchez MD Cardiology at [facility] Arrive at: Home [phone] Please do not come in for this visit. Your provider will call you at the number you provided. 12/30/2019 3:40 PM Gretchen Yoon MD Cardiology at [facility] Arrive at: Home [phone] Please do not come in for this visit. Your provider will call you at the number you provided. Future Orders Complete By Expires Referral to Cardiac Rehab [NSC731 Custom] As directed Process Instructions: If no progress note charted, please enter Clinical details in comments. Scheduling Instructions: Questions: My question or request is: STEMI. Cardiac rehab at [facility] Referral to [facility] [REF43 Custom] As directed Process Instructions: If no progress note charted, please enter Clinical details in comments. Scheduling Instructions: Questions: My question or request is: patient with inferior stemi with history of statin allergy (rash) - please evaluate for psck9 inhibitor. Referral to Home Health - at DISCHARGE [GPQ0414 CPT(R)] As directed Process Instructions: Scheduling Instructions: Comments: DOCUMENTATION FOR VNA SERVICES PATIENT'S LOCATION: [address] [address] (home) Interpreter Deaf's Name: Self In discussion with the attending physician, it is certified that this patient is under his/her care and that MD, or an RESERVOIR CARETAKER, BUS OPERATOR, or PA who is working directly with him/her, had a rupy-hq-ieqh encounter that meets the physician pbhm-vv-ngsy encounter requirements with this patient on 12/07/2019. [...] for managing ADLs. HOME HEALTH CARE AGENCY: [facility], PHONE: [phone] FAX: [phone] Start of care: 24-48 hours after hospital [...] France Lam MD [address] / [place] [address] All A agencies which cover the area of patient's residence have been reviewed, either verbally or in writing, and patient/family have chosen the home health care agency noted. Questions: Agency name and contact information: [facility] Patient location post discharge: Home What services are requested: Registered Nurse Physical Therapy Occupational Therapy Start date: Responsible MD post discharge contact info: PCP Discharge References/Attachments Atrial Fibrillation (Tajik) Cardiac Rehabilitation (Tajik) Heart Failure (Tajik) Heart Failure: Limiting Sodium (Tajik) Hemorrhagic Stroke: General Info (Tajik) Smoking: Stopping (Tajik) Stroke Rehabilitation: General Info (Tajik) Pulmonary Embolism (Tajik) Riki Stevens MD PGY-3, Internal Medicine Cardiology S2, #[id number] Associated attestation - Paris Dodd MD - 12/09/2019 4:44 PM EDT Cardiology Attending Discharge Addendum I was the assigned attending wool grower for this clinical encounter. For the purposes [...] complications include novel onset, paroxysmal atrial fibrillation [[id number]: 5] & L-sided diplopia with potential hemineglect [...] My contact information: Paris Matt MD MPH [address], [place] [address] (office); Pager #[phone] Email: documented in this encounter Discharge Instructions Patient InstructionsFiRiki de jesus MD - 12/02/2019 9:56 AM EDT Images from the original note were not included. Why you were hospitalized: You had a heart attack. You received clot-busting medications at another hospital and then at [facility] you had a stent placed in a [...] FOR ONE MONTH AND THEN STOP. Your wool grower may tell you to start this medication again after one year. Clopidogrel (Plavix) 75 mg daily - This medication will help prevent clots from forming in your blood, which will help protect the stent that was placed in your heart vessel. TAKE THIS FOR ONE YEAR ANDTHEN DISCUSS WITH YOUR SENIOR QUALITY CONTROL INSPECTOR WHETHER TO STOP. Amiodarone 400mg twice daily [...] follow up: Your primary care provider and wool grower will manage your blood thinner (apixaban). You do not need lab monitoring of this medication. Diet: Please consume a healthy diet low in cholesterol Follow up Appointments: 12/10/2019 at 3:10PM with PCP Angel Luis Lott Future Appointments Date Time Provider Department Center 12/23/2019 1:30 PM Alfreda Salas APRN [facility] [id number] [facility] 12/26/2019 9:40 AM Merlin Sanchez MD [facility] CARD 4A [facility] 12/30/2019 3:40 PM Gretchen Yoon MD [facility] CARD 4A [facility] Future Appointments and Orders Future Appointments and Orders Future Appointments Provider Department Dept Phone 12/23/2019 1:30 PM Alfreda Salas APRN Neurosurgery at [facility] Arrive at: Home [phone] Please do not come in for this visit. Your provider will call you at the number you provided. 12/26/2019 9:40 AM Merlin Sanchez MD Cardiology at [facility] Arrive at: Home [phone] Please do not come in for this visit. Your provider will call you at the number you provided. 12/30/2019 3:40 PM Gretchen Yoon MD Cardiology at [facility] Arrive at: Home [phone] Please do not come in for this visit. Your provider will call you at the number you provided. Future Orders Complete By Expires Referral to Cardiac Rehab [VHI211 Custom] As directed Process Instructions: If no progress note charted, please enter Clinical details in comments. Scheduling Instructions: Questions: My question or request is: STEMI. Cardiac rehab at [facility] Referral to [facility] [REF43 Custom] As directed Process Instructions: If no progress note charted, please enter Clinical details in comments. Scheduling Instructions: Questions: My question or request is: patient with inferior stemi with history of statin allergy (rash) - please evaluate for psck9 inhibitor. Referral to Home Health - at DISCHARGE [[id number] CPT(R)] As directed Process Instructions: Scheduling Instructions: Comments: DOCUMENTATION FOR VNA SERVICES PATIENT'S LOCATION: [address] [address] (home) Interpreter Deaf's Name: Self In discussion with the attending physician, it is certified that this patient is under his/her care and that MD, or an RESERVOIR CARETAKER, BUS OPERATOR, or PA who is working directly with him/her, had a orwc-qj-zqad encounter that meets the physician ntak-lm-yznj encounter requirements with this patient on 12/07/2019. [...] for managing ADLs. HOME HEALTH CARE AGENCY: [facility], PHONE: [phone] FAX: [phone] Start of care: 24-48 hours after hospital [...] MD [address] / [place] [address] All A agencies which cover the area of patient's residence have been reviewed, either verbally or in writing, and patient/family have chosen the home health care agency noted. Questions: Agency name and contact information: [facility] Patient location post discharge: Home What services are requested: Registered Nurse Physical Therapy Occupational Therapy Start date: Responsible MD post discharge contact info: PCP Your PCP: France Lam MD [phone] For questions regarding this document or issues relating to this hospitalization on the Cardiology Service, please contact your inpatient physician through the [facility] Early Childhood Education Specialist . Issues after hours and on weekends will be handled by the Mds Manager on-call. Patient Instructions: Neurology Your Diagnosis: Left [...] follow-up appointment in the neurology clinic at [facility]. See below for the appointment time. If you do not have an appointment, you will be called with a time/date for this appointment. ??? Primary Care Provider: Please follow up with your Primary Care Provider within one to 2 weeks ofdischarge. AttachmentsThe following attachments cannot be sent through Care Everywhere. Atrial Fibrillation (Tajik)Cardiac Rehabilitation (Tajik)Heart Failure (Tajik)Heart Failure: Limiting Sodium (Tajik)Hemorrhagic Stroke: General Info (Tajik)Smoking: Stopping (Tajik)Stroke Rehabilitation: General Info (Tajik)Pulmonary Embolism (Tajik)documented in this encounter Medications at Time of [...] consulted in the interim. Vikash Rodriguez Pager: [phone] Paris Dodd MD - 12/08/2019 8:57 AM [...] complications include novel onset, paroxysmal atrial fibrillation [[id number]: 5] & L-sided diplopia with potential hemineglect [...] consulted in the interim. Vikash Rodriguez Pager: [phone] Paris Dodd MD - 12/07/2019 9:55 AM [...] complications include novel onset, paroxysmal atrial fibrillation [SNN4DU6ZCBR: 5] & L-sided diplopia with potential hemineglect [...] complications include novel onset, paroxysmal atrial fibrillation [VIN1PW9AQHS: 5] & L-sided diplopia with potential hemineglect [...] 6 Please see today's progress note from Dr/NAMITA Ewing for full details but in brief: [...] complications include novel onset, paroxysmal atrial fibrillation [UIS9LW4KBMS: 5] & L-sided diplopia with potential hemineglect [...] today; additional complications include paroxysmal atrial fibrillation [FDW8ZN0KMWU: 4] c/b possible cardioembolic stroke, ICH from [...] no lesions, no petechiae Labs Recent Labs 12/05/19 0418 12/04/19 1255 12/04/19 0428 WBC 8.6 8.9 7.8 HGB 12.4* 13.5* 12.0* HCT 37.3* 41.7 36.5* PLATELET 163 196 151 Recent Labs 12/05/19 0418 12/04/19 0428 12/03/19 1955 12/03/19 0402 NA [...] length from neck/greatest diameter to back wall: SUDANESE 91, CAU 13: 19 mm CORTES 1, [...] a non-culprit artery. S/P DESx3 in the hdxhaxnv-tw-gkddtd RCA. Aspiration thrombectomy performed, and integrellin bolus [...] complications include novel onset, paroxysmal atrial fibrillation [NIE2YQ6UMTR: 5] & L-sided diplopia with potential hemineglect [...] R occipital cardioembolic stroke #Paroxysmal Afib with [id number] score of 5 #New segmental bilateral PEs [...] Glasgow MD PGY1, Internal Medicine Cardiology S2, #[id number] Associated attestation - Paris Dodd MD - 12/05/2019 2:59 PM EDT I was the assigned attending wool grower for this clinical encounter. For the purposes [...] 12/04/2019 10:36 AM EDT Office of Care Management(OCM)/Hide And Skin Fleshing Machine Operator(CM)/Discharge Planning Service: Cardiology S2 team CM Bernie Alexander,RN,BSN,MA,ACM pgr [phone] Reviewed record and in Cardiology Rounds with MD team,CMs, sanitary chemist, DIRECTOR OF PHILANTHROPY. Pt is anticipated ready for d/c later today. Met w pt re d/c plan and he continues to agree with home PT/OT/RN w [facility]. His son is bringing his to pick him up together. Discussed Advance Directives and DPOAH- he states he has at home and designated his as primiary; he thought his PCP would have copy. Tel call to PCP who notes no DPOAH on file. Encouraged pt to take his AD to his PCP and to any [facility] appt for each to have on file. [...] complications include novel onset, paroxysmal atrial fibrillation [DNQ5LZ4FEJV: 4] & L-sided diplopia with potential hemineglect [...] 65.7 kg (144 lb 13.5 oz) 12/03/19 034 66.5 kg (146 lb 9.7 oz) 12/02/19 [...] no lesions, no petechiae Labs Recent Labs 12/04/19 0428 12/03/19 1357 12/03/19 0402 WBC 7.8 8.8 [...] a non-culprit artery. S/P DESx3 in the oaoixtua-dk-dhygbq RCA. Aspiration thrombectomy performed, and integrellin bolus [...] complications include novel onset, paroxysmal atrial fibrillation [GQT1JI6KSKR: 5] & L-sided diplopia with potential hemineglect [...] R occipital cardioembolic stroke #Paroxysmal Afib with CI9FKXHO1S score of 5 - No anticoagulation for [...] Glasgow MD PGY1, Internal Medicine Cardiology S2, #[id number] I have seen the patient and reviewed [...] in my clinic. Gretchen Yoon MD Pager [phone] Derian Pascual RN - 12/03/2019 9:29 AM [...] Discharge: None Electronically signed: Derian Pascual RN, Hide And Skin Fleshing Machine Operator Pgr: [phone] 12/03/2019 9:29 AM Gretchen Yoon MD - 12/03/2019 9:01 AM EDT [...] complications include novel onset, paroxysmal atrial fibrillation [LTA6MH3QRKV: 4] & L-sided diplopia with potential hemineglect [...] a non-culprit artery. S/P DESx3 in the zambywqz-np-xccfyq RCA. Aspiration thrombectomy performed, and integrellin bolus [...] complications include novel onset, paroxysmal atrial fibrillation [EHC4FL0NYAK: 5] & L-sided diplopia with potential hemineglect [...] [facility]. Patient voiced strong will to quit smoking now, understood that we have resources available for help. Plan [P]: --Neurologic-- # Concern for Left-Sided Diplopia, r/o Hemineglect # Concern for CVA, last-known well 11/29/19 - MRI showed possible cardioembolic stroke #Afib with HZ8TKXGY1D score of 5 - Stroke Team Consulted; [...] Anticoagulation/Arrhythmia # Novel Onset, Paroxsymal Atrial Fibrillation [SUW3ZM0ZDUT: 5] - Hold off anticoagulation for at [...] straight cath prn # Nutrition - [facility] Diet, 2g Na. -- Hematology/Oncology-- # Mild [...] - Code Status: DNR/DNI - Dispo:[facility] ?? Darerll Glasgow MD PGY1, Internal Medicine Cardiology S2, #[id number] I have seen the patient and reviewed the resident's above history and I agree with the details as written. The assessment and plan were formulated in discussion with me and I agree with them as documented. Gretchen Yoon MD Pager [phone] Raul Hein RN - 12/03/2019 5:55 AM [...] Negative mcL Appearance UA Clear Clear Spec [place] UA 1.026 1.006 - 1.030 Color UA [...] PGY3 Neurology Resident 12/01/2019 Vascular Neurology Pager [phone] Neurology Attending Attestation I evaluated the patient [...] Deepthi Roman MD Vascular Neurology Standard [facility] Swallow Screen: This screen is to be [...] diet as medical provider deems appropriate. Consider SEED AND FERTILIZER SPECIALIST consult for full evaluation and diet [...] complications include novel onset, paroxysmal atrial fibrillation [[id number]: 4] & L-sided diplopia with potential hemineglect [...] BILIDIR 0.1 Recent Labs 12/02/19 0455 12/01/19 0355 11/30/192029 CALCIUM 8.1* 7.6* 7.9* MAGNESIUM 0.85 0.96 [...] a non-culprit artery. S/P DESx3 in the dssjgbgx-xw-ymhwsu RCA. Aspiration thrombectomy performed, and integrellin bolus [...] complications include novel onset, paroxysmal atrial fibrillation [TQF6TB7IAUM: 5] & L-sided diplopia with potential hemineglect [...] Anticoagulation/Arrhythmia # Novel Onset, Paroxsymal Atrial Fibrillation [[id number]: 5] - Hold off anticoagulation - pending [...] d/t low BP. # Nutrition - [facility] Diet -- Hematology/Oncology-- # Mild Thrombocytopenia, unclear [...] Glasgow MD PGY1, Internal Medicine Cardiology S2, #[id number] I have seen the patient and reviewed [...] the ICU team. Gretchen Yoon MD Pager [phone] Natalia Claros APRN - 12/02/2019 8:38 AM [...] midline MOTOR: RUE:5/5 LUE:5/5 RLE: 5/5 LLE: 11/03 No pronator drift LABS: Recent Labs 12/02/19 [...] - We are signing off. Please page [phone] with any questions or concerns. For questions please call NSGY pager [phone] Natalia Claros APRN 12/02/2019 8:38 AM Clinical Documentation Improvement: Active Hospital Problems Diagnosis ??? Acute ST elevation myocardial infarction (STEMI) of inferior wall ??? Intracranial hemorrhage ??? Hyperlipidemia ??? Tobacco abuse ??? Claudication from peripheral vascular disease, left Resolved Hospital Problems No resolved problems to display. Tello Hsu, ROAD OILER - 12/02/2019 2:06 AM EDT 12/01/192009 Oxygen Therapy O2 Device NC O2 Flow [...] contact the number below. Electronically signed by: Latoya Ivey [facility] ([phone]), at 11/30/2019 8:32 PM ASSESSMENT: Patient states he is breathing easier than last night. Still increased WOB PLAN: Wean FiO2 as tolerated. Patient to CT Scan in afternoon. Upon arrival back in [facility] placed on low flow NC at 4 [...] complications include novel onset, paroxysmal atrial fibrillation [[id number]: 4] & L-sided diplopia with potential hemineglect for which CVA evaluationto be pursued. Active Problems/Subjective: - 11/28: admitted for inferior STEMI, RV failure requiring pressor - got lytics, aspirin and plavix load, heparin gtt, and eptifibatide. 3 MACARIO stents to RCA. Holder cath - low wedge & CVP so [...] 68, pCO2 27. Repleted Mag & K. 03/11 chest pain: ekg no significant change, with [...] 98* 122* Recent Labs 12/01/19 0355 11/30/19202911/30/19 021 NA 132* 136 135 K 4.0 3.9 [...] a non-culprit artery. S/P DESx3 in the zhnyaaly-qs-wyyqsu RCA. Aspiration thrombectomy performed, and integrellin bolus [...] complications include novel onset, paroxysmal atrial fibrillation [BYD4VN9JCQQ: 4] & L-sided diplopia with potential hemineglect [...] Anticoagulation/Arrhythmia # Novel Onset, Paroxsymal Atrial Fibrillation [QBU3YO7YKXR: 4] - Obtain: TTE - Pending CVA [...] d/t low BP. # Nutrition - [facility] Diet -- Hematology/Oncology-- # Mild Thrombocytopenia, unclear [...] MD, PGY1 PGY3, Internal Medicine Cardiology S2, #[id number] I have seen the patient and reviewed [...] down the line. Gretchen Yoon MD Pager [phone] ?? Gretchen Yoon MD Pager [phone] Natalia Claros APRN - 12/01/2019 1:33 AM [...] 2.5 mcg/kg/min (12/01/19 0600) ??? nitroGLYcerin Stopped (12/01/19628) ??? NORepinephrine Stopped (12/01/19537) PRN: potassium chloride [...] full. No facial asymmetry Tongue midline MOTOR: RUE:11/03 LUE:11/03 RLE: 11/03 LLE: 11/03 No pronator drift LABS: Recent [...] per primary team For questions please call [employer] pager [phone] Natalia Claros APRN 12/01/2019 7:42 AM Clinical Documentation Improvement: Active Hospital Problems Diagnosis ??? Acute ST elevation myocardial infarction (STEMI) of inferior wall ??? Intracranial hemorrhage ??? Hyperlipidemia ??? Tobacco abuse ??? Claudication from peripheral vascular disease, left Resolved Hospital Problems No resolved problems to display. Tello Hsu, ROAD OILER - 11/30/2019 8:44 PM EDT Respiratory Therapy [...] contact the number below. Electronically signed by: Latoya Ivey [facility] ([phone]), at 11/30/2019 8:32 PM ASSESSMENT: Patient had increased WOB and desaturation on [...] EDT Narrative:Visited in response to request for Candle [employer]older services. Pt was awake, alert, oriented and in bed. Assessment:Patient coping positively with stresses of illness/hospitalization at this time. Pt says that he is hoping to get better and pt is living with and has children and grandchildren. Pt haspurpose of life and has reason to get getter and to be with family. Outcome: Provided emotional and spiritual support and encouraging presence. Candle Molder services accepted.Conversation to build trusting relationship.Provided pastoral [...] complications include novel onset, paroxysmal atrial fibrillation [RXW7SX6KUGU: 4] & L-sided diplopia with potential hemineglect for which CVA evaluationto be pursued. Active Problems/Subjective: - Overnight, CVP < 12 for which a total of 1 L IVF provided - Today AM, patient complains of subjectively reported, left-sided hemineglect with floaters and diplopia [see: exam]. - Otherwise, c/o neck pain 2/2 R IJ Holder & L radial A line. Otherwise, denies [...] 35.2* 40.8 PLATELET 122* 184 Recent Labs 11/30/195 11/29/19 1432 NA 135 135 K 3.9 4.5 CL 108* 105 CO2 16* 15* BUN 13 16 CREATININE 0.90 0.94 Recent Labs 11/29/19 1432 AST 257* ALT 50 ALKPHOS 84 BILITOT 0.3 BILIDIR 0.1 Recent Labs 11/30/1921411/29/19 1432 CALCIUM 7.5* 8.0* MAGNESIUM -- 0.76 Recent Labs 11/29/19 1432 INR 1.2 PT 13.5* PTT 114* Recent Labs 11/30/19 0830 11/30/1921430/20 1835 CK 1,645* 1,969* 2,780* TROPONINT 8.04* 11.73* 17.60* No results for input(s): POCGLU in the last 168 hours. Imaging/Studies: 1. Cardiac Catheterization, 11/29/19: Discrete 90% stenosis in the prox-to-mid RCA. Severe diffuse disease in the distal vessel. Discrete LCX stenosis in a non-culprit artery. S/P DESx3 in the iofhnaiz-yu-ycpzdj RCA. Aspiration thrombectomy performed, and integrellin bolus [...] complications include novel onset, paroxysmal atrial fibrillation [LEW2JY8YOYF: 4] & L-sided diplopia with potential hemineglect [...] Anticoagulation/Arrhythmia # Novel Onset, Paroxsymal Atrial Fibrillation [MAE3HZ3HBGS: 4] - Obtain: TTE to confirm rhythm [...] d/t low BP. # Nutrition - [facility] Diet -- Hematology/Oncology-- # Mild Thrombocytopenia, unclear [...] MD, PGY3 PGY3, Internal Medicine Cardiology S2, #0228 I have seen the patient and reviewed [...] down the line. Gretchen Yoon MD Pager [phone] Paola Capps RN - 11/30/2019 6:57 AM EDT PT still requiring 4 of levo, several attempts to titrate down (maps in 70;s) But maps would drop toless than 65. Pt very restless in bed Raising and lowering head denies pain . Integrillin stopped [id number] when bottle complete , urine tea colored [...] PCP: France Lam MD PCP phone #: [phone] Lockstitch Sleeve Setter: None ID/Chief Complaint: Chest pain History of Present Illness: 74 y.o male with no significant PMH, was in usual state of health until yesterday when he woke up at 4am this morning with severe crushing substernal chest pain 04/10. He took two full strength aspirin and came to [facility] ED. At there was found to have [...] Compazine. He was transferred directly to [facility] via [facility] for further management. Patient had an emergent PCI with 3 MACARIO stents placed to his RCA, with mild disease of LCX (report pending) at [facility]. He was found to be persistently hypotensive requiring Levo up to 10mcg/min. He was transferred to [facility] after the cath procedure. Bedside RHC showed CI 2.12, PAWP 11, PAP 38/15 indicating hypovolemic state. He received 1L bolus of NS with improvement of his blood pressure to 124/61. History of PAD, HLD - had side reactions to statins - so taking niacin and red rye grain. Chronic active smoker with more than 65 pack years. Family history of HI in father and two uncles. He's takingbaby [...] ??? Penicillins Pt doesn't remember reaction ??? Qgufzpp-Kft-Mqa Reductase Inhibitors Stiff neck, upset stomach, back pain Family History: Mother: Father: HI 2 Uncles with MIs Social History: Tobacco: Current active smoker 1 ppd. 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 Vitals: Last value Range last [...] in the last 7068 hours. Invalid input(s): [id number] Heme: No results for input(s): LDH, HAPTOGLOBIN, [...] prior to transfer and PCI at [facility]. Massive inferior STEMI with troponin level 20, currently in CVCC due to pressor requirement. BedsideRHC demonstrated evidence of elevated right sided heart failure, but his wedge was wnl. He received 1L bolus with improvement of his blood pressure and reduction of his pressor requirement. PLAN: Admit to Cardiology, S2 Team Pager # [phone] #Inferior STEMI, LEYLA 149 - Resolving EKG [...] STEMI s/p lytic therapy. Transferred to [facility] and underwent successful PCI of the RCA with MACARIO x3. Gretchen Yoon MD Pager [phone] documented in this encounter Procedure Notes Juventino [...] to the planned procedure. Hand Hygiene: The education reviewer did perform hand hygiene prior to arterial [...] was drawn with ease. Good wave form. Senser, Cedric Ordonez MD - 11/29/2019 1:00 PM EDTProcedure(s): CATHETER [...] a suspected line-associated infection. Location of Procedure: [facility] Risks and Benefits: The risks and benefits [...] to the planned procedure. Hand Hygiene: The education reviewer did perform hand hygiene prior to line [...] side:right An Introducer (PSI Kit) was used. [place]. Insertion Side: right. Insertion Site: internal jugular. Catheter Details: Number of Lumens: 1 Catheter Type: heparin-coated The line was placed over a guidewire. Confirmation of Venous Placement: Venous placement was confirmed by transducing the pressure. Introducer Insertion Attempts: 1 Comments: Floating the Holder-Mo Catheter Attempts: 1 Comments: Sterile Dressing: Biopatch [...] better pt back in SR. Please page [phone] for any more cares or concerns Plan [...] Outcome: Ongoing (Interventions Implemented as Appropriate) 12/05/19 1953 12/06/19 1200 12/06/19 1600 Beyer Fall Risk History [...] of feelings encouraged Plan of Care - LandonAngel Luis OTA - 12/05/2019 1:46 PM EDT Occupational [...] complications include novel onset, paroxysmal atrial fibrillation [[id number]: 5]& L-sided diplopia with potential hemineglect for [...] Total Evaluation Minutes, Occupational Therapy: 10 Pager: [phone] FRANCINE Nuñez Occupational Therapy Rehabilitation Department Plan [...] complications include novel onset, paroxysmal atrial fibrillation [VIC0BB6RQQN: 5] & L-sided diplopia with potential hemineglect [...] hand rails). Baseline Mobility: Independent. Drives. Shares director education with his , however her mobility is [...] plan as stated. Time IN / OUT: 1144-6589 Total Evaluation Minutes, Physical Therapy: 15(gtx1) Barbara Baldwin, PT Pager: [phone] Physical Therapy Inpatient Rehabilitation Department Plan of [...] he receives all he needs through the [facility]. Consult refused. Romain Tran, MSN, RN-, [facility] Tobacco Grain Unloader [facility] Pager #[phone] Plan of Care - Romain Oglesby OT [...] complications include novel onset, paroxysmal atrial fibrillation [GFD1BX7ZPDC: 5] & L-sided diplopia with potential hemineglect [...] and measurable assessment of functional outcome. Pager: [phone] ROMAIN OGLESBY OT 12/03/2019 Occupational Therapy Rehabilitation Department Consult Note - Norma Gallegos RN - 12/03/2019 11:32 AM EDT Angel Luis Nilo Salinas was seen today by Cardiac Rehabilitation [...] in an outpatient cardiac rehabilitation program at [facility] was discussed. Patient agrees to a referral to this program. His has been a cardiac rehab patient at [facility] and he is familiar with the program. [...] complications include novel onset, paroxysmal atrial fibrillation [YQO7UO5HJJJ: 5] & L-sided diplopia with potential hemineglect [...] hand rails). Baseline Mobility: Independent. Drives. Shares director education with his , however her mobility is [...] in this evaluation. Time IN / OUT: 6092-1881 Total Evaluation Minutes, Physical Therapy: 25(eval, gtx1) Barbara Baldwin, PT Pager: [phone] Physical Therapy Inpatient Rehabilitation Department Consult Note - Johanna Nobles RN - 12/02/2019 12:49 PM EDT Images from the original note were not included. Certified Wound Care Nurse Note Situation: Asked to see Angel Luis Salinas by Estefani Encarnacion RN for New .5cm x .5cm open [...] 31.2 (L) 12/01/2019 Nutritional Intake Current bed: [facility] Assessment: Patient is with an area [...] Please contact JOHANNA NOBLES RN on pager [phone] or the wound care team at [phone] or pager [phone] skin and wound care concerns or questions. [...] Salinas would be surrogate decision maker per [place] surrogate decision making law. Any patient receiving carspousee at [facility] must abide by [place] law. The hierarchy for surrogate decisionmaking is: [...] (i) The agent with financial power of corporate attorney or a conservator appointed in accordance with [...] Insurance: N/A Prescription Coverage: Yes Preferred Pharmacy: [place] Other: No Primary Care Provider: France Lam MD [phone] Patient/Caregiver Goals of Treatment: Return home Potential Needs for Transition of Care: Rehab/SNF: Based on discussions with the multi-disciplinary healthcare team, the patient would benefit from SNF level of care at discharge. ?? I have met with the patient to discuss discharge planning needs. I have provided the [facility], Officeof Care Management letter from the Curriculum Writer pertaining to rehab referrals. I have also provided a letter describing our affiliations within the [facility] and educated them about [...] patient have [facility] ref[facility] to: ?? [facility] [address] [place] [address] ?? [address]. [address] , [place] [address] Note routed to Personnel Associate who will communicate referrals to facilities and provide any required information. Home Health: If therapies recommend home w/ VNA, the patient has been provided a list of Home Health Agencies/DME vendors which serve their preferred geographic area. A letter describing our affiliations was reviewed with them and they were educated about their right to choose where referrals are placed. Patient requests referral to [facility] [place]. PHONE: [phone] FAX: [phone] Referral routed to the Personnel Associate for matching with agency/vendor and to provide [...] Insured w/ Medicare. Gets medications filled at [facility] in [place], [place]. Son to transport at discharge Plan: Discharge dispo depending on patient's physical recovery; SNF vs home w/ VNA. A member of the Care Management team will continue to monitor progress, follow for continuity of care and assist with transition of care planning. Derian Pascual RN Pager: [phone] Plan of Care - Estefani Encarnacion RN - 11/30/2019 8:39 PM EDT Problem: [...] PLAN MOVING FORWARD: Monitor, assessments, intervene prn. 2125: C/o chest pain, substernal pressure 03/11 Ekg obtained, Dr. Winn to floor. CXR obtained 2132: Pt discussed with Cardiac Fellow Dr. Downs by Dr. Winn sl nitroglycerin tablet now. 2137: Pain now 10 nitro gtt initiated. Goal as discussed with Dr. Winn is MAP >60, SBP <160, pain free. 2314: Pain continues to move between 5-01/08. Dr. [...] ??? Penicillins Pt doesn't remember reaction ??? Lybodbq-Nvb-Nun Reductase Inhibitors Stiff neck, upset stomach, back [...] noncontrast head CT and CT of the [place] at 1600 hrs. We will [...] concerning for stroke. Patient presented to [facility] in transfer for a STEMI after presenting [...] ??? Penicillins Pt doesn't remember reaction ??? Xtvswac-Fll-Mfa Reductase Inhibitors Stiff neck, upset stomach, back [...] file Gets together: Not on file Attends congregation service: Not on file Active member of [...] L Elbow flexion 5/5 R, 5/5 L Community Relations Director LE: 5/5 R, 5/5 L Hip flexion [...] PGY3 Neurology Resident 11/30/2019 Vascular Neurology Pager [phone] Standard [facility] Swallow Screen: This screen is to be [...] diet as medical provider deems appropriate. Consider SEED AND FERTILIZER SPECIALIST consult for full evaluation and diet [...] Afib admitted s/p thrombolysis and Cath-Stent to [facility] who developed R sided visual symptoms. CT [...] hours. Evan Mejia MD Department of Neurology [facility] Brief Op Note - Gretchen Yoon MD - 11/29/2019 8:38 PM EDT Brief Operative Note Patient Name: Angel Luis Salinas : [id number] MR#: [id number] Case Date: 11/29/2019 Surgeon: Surgeon(s) and Role: * Gretchen Yoon MD - Primary * Aidan Ward MD - Fellow Preoperative diagnosis: Inferior STEMI Postoperative diagnosis: Inferior STEMI Procedure(s) (LRB): CARDIAC CATHETERIZATION (N/A) Findings: Discrete 90% stenosis in the prox-to-mid RCA. Severe diffuse disease in the distal vessel. Discrete LCX stenosis in a non-culprit artery. S/P DESx3 in the ldkepjpk-sk-exoiyr RCA. Aspiration thrombectomy performed, and integrellin bolus [...] are i n the results section. CT [facility] [place] W STAT 11/30/2019 4:36 Res [...] encounter Results Potassium (12/08/2019 12:39 PM EDT) athologist Signature Potassium 3.9 3.5 - 5.0 [facility] mmol/L [facility] Comment: Please note: ??Patients with [...] Organization Address City/State/[place] [address] (ABNORMAL) Hemogram (12/08/2019 12:39 PM EDT) Analysis Performed At Patho logist Time Signature WBC 9.9 (H) 4.0 - 9.5 [facility] x10(3[facility] LABORATORY RBC 4.51 (L) 4.58 - MELINA OLIVIA 5.54 [facility] x10(6)/[facility] LABORATORY Hemoglobin 13.0 (L) 13.7 - [place] OLIVIA 16.5 gm/dL [facility] Hematocrit 40.5 40.5 - [place] OLIVIA 48.5 % [facility] MCV 89.8 82.9 - [facility] OLIVIA 93.1 [facility] LABORATORY MCH 28.8 27.5 - [place] OLIVIA 32.1 pg [facility] MCHC 32.1 32.0 - [place] OLIVIA 35.7 gm/dL [facility] Platelets 214 145 - 357 [facility] x10(3)/[facility] LABORATORY RDWSD 49.2 (H) 36.0 - [place] OLIVIA 45.0 [facility] LABORATORY RDWCV 15.1 (H) 11.4 - [facility] Medical[facility]IVIA 13.8 % [facility] MPV 12.1 7.6 - 12.9 [facility] OLIVIA [facility] LABORATORY nRBC % Auto 0.0 % [facility] nRBC Abs Auto 0.000 0.000 - [facility] MedicalOLIIVA 0.000 [facility] x10(3)/[facility] LABORATORY Specimen Anatomical Collection Method Collection Time Receive d Time (Source) Location / / Volume Laterality Blood specimen 12/08/2019 12:39 0 (specimen) PM EDT 12:47 PM EDT Resulting Agency Comment Spec In Lab Gretchen Yoon MD HEMATOLOGY ORDERABLES Performing Organization Address City/State/ZIP Code Phon e Number [address] Hepatic Function Panel (12/08/2019 6:28 AM EDT) athologist Signature Total Protein 6.6 6.1 - 8.0 MELINA OLIVIA gm/dL [facility] Albumin 3.2 3.2 - 5.2 [place] OLIVIA gm/dL [facility] AST 18 0 - 39 [place] OLIVIA unit/L [facility] ALT 13 0 - 55 [facility] OLIVIA unit/L [facility] Alk Phos 64 40 - 130 [facility] OLIVIA unit/L [facility] Total 0.4 0.2 - 1.3 M[place] OLIVIA Bilirubin mg/dL [facility] Bili, Direct 0.1 0.0 - 0.3 [facility] OLIVIA mg/dL [facility] Specimen Anatomical Collection Method Collection Time Receive d Time (Source) Location / / Volume Laterality Blood specimen Venous Draw / 12/08/2019 6:28 AM 2019 6:36 (specimen) Unknown EDT AM EDT Resulting Agency Comment Spec In Lab Riki Stevens MD CHEMISTRY ORDERABLES Performing Organization Address City/[facility]/ZIP Code Phon e Number [address] (ABNORMAL) TSH (12/08/2019 6:28 AM EDT) athologist Signature TSH 5.27 (H) 0.27 - 4.20 [employer] mcIU/mL [facility] Specimen Anatomical Collection Method Collection Time Receive d Time (Source) Location / / Volume Laterality Blood specimen Venous Draw / 12/08/2019 6:28 AM 2019 6:36 (specimen) Unknown EDT AM EDT Resulting Agency Comment Spec In Lab Darrell Glasgow MD CHEMISTRY ORDERABLES Performing Organization Address City/[facility]/ZIP Code Phon e Number [address] Potassium (12/08/2019 6:28 AM EDT) P athologist Signature Potassium 4.2 3.5 - 5.0 [facility] mmol/L [facility] Comment: Please note: ??Patients with [...] Organization Address City/State/[place] [address] (ABNORMAL) Differential, Automated (12/08/2019 12:43 AM EDT) Patholo gist Method Time Signature Neutrophils % 60.7 % [facility] Neutr Abs (ANC) 6.81 (H) 1.70 - [facility] 6.10 [facility] x10(3)/[facility] LABORATORY Lymphocytes % 23.4 % [facility] Lymphocytes Abs 2.6 0.9 - 3.2 [facility] x10(3)/[facility] LABORATORY Monocytes % 10.0 % [facility] Monocyte Abs 1.1 (H) 0.3 - 0.9 [facility] x10(3)/[facility] LABORATORY Eosinophils % 3.7 % [facility] Eosinophils Abs 0.4 0.0 - 0.4 [facility] x10(3)/[facility] LABORATORY Basophils % 1.2 % [facility] Basophils Abs 0.1 0.0 - 0.1 [facility] x10(3)/[facility] LABORATORY Immature Gran % 1.00 % [facility] Comment: Immature granulocytes(IG's)percentage an d absolute count will include metamyelocytes, myelocytes, and promyelo cytes. Blood smears from CBCs yielding IG's will be scanned manually for ana nagy. If this scan disagrees with the automated IG or if promyelocytes are not ed, a manual differential will be performed. Pita Gran Abs 0.11 (H) 0.00 - 0.04 x10(3)/[facility] LABORATORY Specimen Anatomical Collection Method Collection Time Receive d Time (Source) Location / / Volume Laterality Blood specimen 12/08/2019 12:43 0 (specimen) AM EDT 12:52 AM EDT Resulting Agency Comment Spec In Lab Riki Stevens MD HEMATOLOGY ORDERABLES Performing Organization Address City/State/[place] [address] (ABNORMAL) Hemogram (12/08/2019 12:43 AM EDT) Analysis Performed At Patho logist Time Signature WBC 11.2 (H) 4.0 - 9.5 [facility] x10(3)/[facility] LABORATORY RBC 4.46 (L) 4.58 - [facility] OLIVIA 5.54 [facility] x10(6)/[facility] LABORATORY Hemoglobin 13.1 (L) 13.7 - [facility] 16.5 gm/dL [facility] LABORATORY Hematocrit 40.5 40.5 - [facility] OLIVIA 48.5 % [facility] LABORATORY MCV 90.8 82.9 - [facility] 93.1 [facility] LABORATORY MCH 29.4 27.5 - [facility] [place] 32.1 pg [facility] LABORATORY MCHC 32.3 32.0 - [facility] [place] 35.7 gm/dL [facility] LABORATORY Platelets 215 145 - 357 [facility] x10(3)/[facility] LABORATORY RDWSD 49.8 (H) 36.0 - [facility] OLIVIA 45.0 [facility] LABORATORY RDWCV 15.2 (H) 11.4 - [facility] OLIVIA 13.8 % [facility] LABORATORY MPV 12.3 7.6 - 12.9 [facility] LABORATORY nRBC % Auto 0.0 % [facility] LABORATORY nRBC Abs Auto 0.000 0.000 - [facility] LocalGuiding 0.000 [facility] x10(3)/[facility] LABORATORY Specimen Anatomical Collection Method Collection Time Receive d Time (Source) Location / / Volume Laterality Blood specimen 12/08/2019 12:43 0 (specimen) AM EDT 12:52 AM EDT Resulting Agency Comment Spec In Lab Riki Stevens MD HEMATOLOGY ORDERABLES Performing Organization Address City/State/ZIP Code Phon e Number [address] Magnesium (12/08/2019 12:43 AM EDT) athologist Signature Magnesium 1.01 0.69 - 1.07 [facility] mmol/L [facility] LABORATORY Specimen Anatomical Collection Method Collection Time Receive d Time (Source) Location / / Volume Laterality Blood specimen 12/08/2019 12:43 0 (specimen) AM EDT 12:52 AM EDT Resulting Agency Comment Spec In Lab Gretchen Yoon MD CHEMISTRY ORDERABLES Performing Organization Address City/State/ZIP [place] [address] (ABNORMAL) BMP w/fasting Glucose (12/08/2019 12:43 AM EDT) P athologist Signature Glucose 106 (H) 65 - 99 [facility] Fasting mg/dL [facility] LABORATORY Comment: ?Fasting* Glucose Interpretive C riteria [...] of Diabetes Mellitus, Position Statement from the [place] [employer]. ??Diabete s Care, Volume 33, Supplement 1, Jul 2009 BUN 14 10 - 20 mg/dL [facility] LABORATORY Creatinine 1.16 0.80 - 1.50 mg/dL [facility] LABORATORY Sodium 134 (L) 135 - 145 mmol/L [facility] LABORATORY Potassium 4.0 3.5 - 5.0 mmol/L [facility] LABORATORY Comment: Please note: ??Patients with WBC >100,00 0 may have falsely elevated Potassium levels. ??For accurate Potassium quantif ication in these patients send serum separator tube (gold top) for subsequent determinations. ??Contact the Clinical Chemistry Laboratory if there are any qu estions. Chloride 99 98 - 107 mmol/L [facility] LABORATORY CO2 19 (L) 22 - 31 mmol/L [facility] LABORATORY Anion Gap 16 (H) 5 - 15 mmol/L [facility] LABORATORY Calcium 8.9 8.5 - 10.5 mg/dL [facility] LABORATORY Estimated GFR 62 >=60 mL/min/1.73 m?? [facility] LABORATORY Comment: The eGFR was calculated using the CKD-EP I equation. As with all creatinine based estimates of kidney function, eGFR values calculated with the CKD-EPI equation are not accurate in patients wi th acute kidney failure, extremes of body mass or the acutely ill. http://Oligasis/[facility] eGFR 72 >=60 mL/min/1.73 m?? [facility] LABORATORY Comment: The eGFR was calculated using the CKD-EP I equation. As with all creatinine based estimates of kidney function, eGFR values calculated with the CKD-EPI equation are not accurate in patients wi th acute kidney failure, extremes of body mass or the acutely ill. http://Oligasis/[facility] Specimen Anatomical Collection Method Collection Time Receive d Time (Source) Location / / Volume Laterality Blood specimen 12/08/2019 12:43 0 (specimen) AM EDT 12:52 AM EDT Resulting Agency Comment Spec In Lab Gretchen Yoon MD CHEMISTRY ORDERABLES Performing Organization Address City/State/[place] [address] Heparin (unfractionated) Level (12/08/2019 12:43 AM EDT) athologist Signature Heparin UFH 0.60 IU/mL [facility] LABORATORY Comment: Guidelines for therapeutic unfractionate [...] Organization Address City/State/[place] [address] Potassium (12/07/2019 8:39 PM EDT) athologist Signature Potassium 4.1 3.5 - 5.0 [facility] mmol/L [facility] LABORATORY Comment: Please note: ??Patients with [...] Lagos MD CHEMISTRY ORDERABLES Performing Organization Address City/[facility]/ZIP [place] [address] Potassium (12/07/2019 4:02 PM EDT) P athologist Signature Potassium 4.0 3.5 - 5.0 [facility] [place] mmol/L [facility] LABORATORY Comment: Please note: ??Patients with [...] Yoon MD CHEMISTRY ORDERABLES Performing Organization Address City/[facility]/ZIP [place] [address] (ABNORMAL) Hemogram (12/07/2019 4:02 PM EDT) Analysis Performed At Patho logist Time Signature WBC 17.4 (H) 4.0 - 9.5 [facility] [place] x10(3)/[facility] LABORATORY RBC 4.58 4.58 - [place] OLIVIA 5.54 [facility] x10(6)/[facility] LABORATORY Hemoglobin 13.5 (L) 13.7 - [facility] [place] 16.5 gm/dL [facility] LABORATORY Hematocrit 40.8 40.5 - [facility] [place]IVIA 48.5 % [facility] LABORATORY MCV 89.1 82.9 - [facility] [place] 93.1 [facility] LABORATORY MCH 29.5 27.5 - [facility] [place] 32.1 pg [facility] LABORATORY MCHC 33.1 32.0 - [facility] [place] 35.7 gm/dL [facility] LABORATORY Platelets 238 145 - 357 [facility] OLIV[facility] x10(3)/[facility] LABORATORY RDWSD 48.8 (H) 36.0 - [facility]IVIA 45.0 [facility] LABORATORY RDWCV 15.0 (H) 11.4 - [facility] 13.8 % [facility] LABORATORY MPV 12.2 7.6 - 12.9 [facility] LABORATORY nRBC % Auto 0.0 % [facility] LABORATORY nRBC Abs Auto 0.000 0.000 - [place] MARSH[place] 0.000 [facility] x10(3)/[facility] LABORATORY Specimen Anatomical Collection Method Collection Time Receive d Time (Source) Location / / Volume Laterality Blood specimen 12/07/2019 4:02 PM 020 4:08 (specimen) EDT PM EDT Resulting Agency Comment Spec In Lab Gretchen Yoon MD HEMATOLOGY ORDERABLES Performing Organization Address City/[facility] [place] [address] EKG 12 Lead (12/07/2019 [...] (Bezet) Calculated P -12 degrees [facility] [place] Calculated R 10 degrees [facility] [place] Calculated T -138 degrees [facility]USE [facility] [place] INTERPRETATION Supraventricular tachycardia MUSE SYSTEM Low voltage [...] athologist Signature Potassium 4.2 3.5 - 5.0 [facility] mmol/L [facility] LABORATORY Comment: Please note: ??Patients with [...] Lagos MD CHEMISTRY ORDERABLES Performing Organization Address City/[facility] [place] [address] Heparin (unfractionated) Level (12/07/2019 11:43 AM EDT) athologist Signature Heparin UFH 0.59 IU/mL [facility] LABORATORY Comment: Guidelines for therapeutic unfractionate [...] Lagos MD HEMATOLOGY ORDERABLES Performing Organization Address [facility]/ZIP [place] [address] Heparin (unfractionated) Level (12/07/2019 5:20 AM EDT) P athologist Signature Heparin UFH 0.53 IU/mL [facility] LABORATORY Comment: Guidelines for therapeutic unfractionate [...] Organization Address City/State/ZIP [place] [address] (ABNORMAL) Differential, Automated (12/07/2019 5:20 AM EDT) Patholo gist Method Time Signature Neutrophils % 62.4 % [facility] LABORATORY Neutr Abs (ANC) 5.46 1.70 - [facility] 6.10 [facility] x10(3)/[facility] LABORATORY Lymphocytes % 20.3 % [facility] LABORATORY Lymphocytes Abs 1.8 0.9 - 3.2 [facility] x10(3)/[facility] LABORATORY Monocytes % 11.0 % [facility] LABORATORY Monocyte Abs 1.0 (H) 0.3 - 0.9 [facility] x10(3)/[facility] LABORATORY Eosinophils % 4.5 % [facility] LABORATORY Eosinophils Abs 0.4 0.0 - 0.4 [facility] x10(3)/[facility] LABORATORY Basophils % 0.9 % [facility] LABORATORY Basophils Abs 0.1 0.0 - 0.1 [facility] x10(3)/[facility] LABORATORY Immature Gran % 0.90 % [facility] LABORATORY Comment: Immature granulocytes(IG's)percentage an d absolute count will include metamyelocytes, myelocytes, and promyelo cytes. Blood smears from CBCs yielding IG's will be scanned manually for concor dance. If this scan disagrees with the automated IG or if promyelocytes are not ed, a manual differential will be performed. Pita Gran Abs 0.08 (H) 0.00 - 0.04 x10(3)/[facility] LABORATORY Specimen Anatomical Collection Method Collection Time Receive d Time (Source) Location / / Volume Laterality Blood specimen 12/07/2019 5:20 AM 020 5:37 (specimen) EDT AM EDT Resulting Agency Comment Spec In Lab Riki Stevens MD HEMATOLOGY ORDERABLES Performing Organization Address City/State/ZIP Code Phon e Number [place] [id number] Drive (ABNORMAL) Hemogram (12/07/2019 5:20 AM EDT) Analysis Performed At Patho logist Time Signature WBC 8.7 4.0 - 9.5 [facility] x10(3)/[facility] LABORATORY RBC 4.20 (L) 4.58 - [facility] 5.54 [facility] x10(6)/[facility] LABORATORY Hemoglobin 12.3 (L) 13.7 - [facility] 16.5 gm/dL [facility] LABORATORY Hematocrit 37.4 (L) 40.5 - [facility] % [facility] LAB[facility]ATORY MCV 89.0 82.9 - [facility] 93[facility]1 fL [facility] LABORATORY MCH 29.3 27.5 - [facility] 32.1 pg [facility] LABORATORY MCHC 32.9 32.0 - [facility] MON[facility] 35.7 gm/dL [facility] LABORATORY Platelets 181 145 - 357 [facility] MON[facility] x10(3)/[facility] LABORATORY RDWSD 47.7 (H) 36.0 - [place] MONAE 45.0 [facility] LABORATORY RDWCV 14.8 (H) 11.4 - [facility] OLIVIA 13.8 % [facility] LABORATORY MPV 12.3 7.6 - 12.9 [place]IV[place] [facility] LABORATORY nRBC % Auto 0.0 % [facility] LABORATORY nRBC Abs Auto 0.000 0.000 - [place] MONAE 0.000 [facility] x10(3)/[facility] LABORATORY Specimen Anatomical Collection Method Collection Time Receive d Time (Source) Location / / Volume Laterality Blood specimen 12/07/2019 5:20 AM 020 5:37 (specimen) EDT AM EDT Resulting Agency Comment Spec In Lab Riki Stevens MD HEMATOLOGY ORDERABLES Performing Organization Address City/State/ZIP Code Phon e Number [address] Magnesium (12/07/2019 5:20 AM EDT) P athologist Signature Magnesium 0.89 0.69 - 1.07 [facility] mmol/L [facility] LABORATORY Specimen Anatomical Collection Method Collection Time Receive d Time (Source) Location / / Volume Laterality Blood specimen 12/07/2019 5:20 AM 020 5:37 (specimen) EDT AM EDT Resulting Agency Comment Spec In Lab Gretchen Yoon MD CHEMISTRY ORDERABLES Performing Organization Address City/State/ZIP Code Phon e Number [address] (ABNORMAL) BMP w/fasting Glucose (12/07/2019 5:20 AM EDT) P athologist Signature Glucose 100 (H) 65 - 99 [facility] Fasting mg/dL [facility] LABORATORY Comment: ?Fasting* Glucose Interpretive C riteria [...] of Diabetes Mellitus, Position Statement from the [place] [employer]. ??Diabete s Care, Volume 33, Supplement 1, Jul 2009 BUN 14 10 - 20 mg/dL [facility] LABORATORY Creatinine 0.83 0.80 - 1.50 mg/dL [facility] LABORATORY Sodium 135 135 - 145 mmol/L [facility] LABORATORY Potassium 3.8 3.5 - 5.0 mmol/L [facility] LABORATORY Comment: Please note: ??Patients with WBC >100,00 0 may have falsely elevated Potassium levels. ??For accurate Potassium quantif ication in these patients send serum separator tube (gold top) for subsequent determinations. ??Contact the Clinical Chemistry Laboratory if there are any qu estions. Chloride 101 98 - 107 mmol/L [facility] LABORATORY CO2 20 (L) 22 - 31 mmol/L [facility] LABORATORY Anion Gap 14 5 - 15 mmol/L [facility] LABORATORY Calcium 8.8 8.5 - 10.5 mg/dL [facility] LABORATORY Estimated GFR 87 >=60 mL/min/1.73 m?? [facility] LABORATORY Comment: The eGFR was calculated using the CKD-EP I equation. As with all creatinine based estimates of kidney function, eGFR values calculated with the CKD-EPI equation are not accurate in patients wi th acute kidney failure, extremes of body mass or the acutely ill. http://Oligasis/[facility] eGFR 101 >=60 mL/min/1.73 m?? [facility] LABORATORY Comment: The eGFR was calculated using the CKD-EP I equation. As with all creatinine based estimates of kidney function, eGFR values calculated with the CKD-EPI equation are not accurate in patients wi th acute kidney failure, extremes of body mass or the acutely ill. [email or web address] Specimen Anatomical Collection Method Collection Time Receive d Time (Source) Location / / Volume Laterality Blood specimen 12/07/2019 5:20 AM 020 5:37 (specimen) EDT AM EDT Resulting Agency Comment Spec In Lab Gretchen Yoon MD CHEMISTRY ORDERABLES Performing Organization Address City/[facility] [place] [address] Heparin (unfractionated) Level (12/06/2019 10:14 PM EDT) athologist Signature Heparin UFH 0.29 IU/mL [facility] LABORATORY Comment: Guidelines for therapeutic unfractionate [...] Lagos MD HEMATOLOGY ORDERABLES Performing Organization Address City/[facility]/ZIP [place] [address] Head wo Contrast [...] For questions regarding this report, please contact [facility] number below. ? Electronically signed by: Merari Collins [facility] ([phone]), at 12/06/2019 10:06 PM Narrative 12/06/2019 10:06 PM EDT EXAMINATION: CT [...] contact e number below. Electronically signed by: Merari Collins [facility] ([phone]), at 12/06/2019 10:06 PM [place] Lagos MD IMG CT ORDERABLES (ABNORMAL) Hemogram (12/06/2019 4:20 PM EDT) Analysis Performed At Patho logist Time Signature WBC 10.4 (H) 4.0 - 9.5 [facility] x10(3)/[facility] LABORATORY RBC 4.32 (L) 4.58 - [facility] OLIVIA 5.54 [facility] x10(6)/[facility] LABORATORY Hemoglobin 12.5 (L) 13.7 - [facility] 16.5 gm/dL [facility] LABORATORY Hematocrit 38.4 (L) 40.5 - [facility] 48.5 % [facility] LABORATORY MCV 88.9 82.9 - [facility] 93.1 [facility] LABORATORY MCH 28.9 27.5 - [place] 32.1 pg [facility] LABORATORY MCHC 32.6 32.0 - [facility] 35.7 gm/dL [facility] LABORATORY Platelets 194 145 - 357 [facility] x10(3)/[facility] LABORATORY RDWSD 46.9 (H) 36.0 - [facility] 45.0 [facility] LABORATORY RDWCV 14.6 (H) 11.4 - [facility] [place] 13.8 % [facility] LABORATORY MPV 11.9 7.6 - 12.9 [facility] LABORATORY nRBC % Auto 0.0 % [facility] LABORATORY nRBC Abs Auto 0.000 0.000 - [facility] OLIVIA 0.000 [facility] x10(3)/[facility] LABORATORY Specimen Anatomical Collection Method Collection Time Receive d Time (Source) Location / / Volume Laterality Blood specimen 12/06/2019 4:20 PM 020 4:31 (specimen) EDT PM EDT Resulting Agency Comment Spec In Lab Gretchen Yoon MD HEMATOLOGY ORDERABLES Performing Organization Address City/State/[place] [address] Heparin (unfractionated) Level (12/06/2019 4:20 PM EDT) P athologist Signature Heparin UFH 0.30 IU/mL [facility] LABORATORY Comment: Guidelines for therapeutic unfractionate [...] Organization Address City/State/[place] [address] Heparin (unfractionated) Level (12/06/2019 10:02 AM EDT) athologist Signature Heparin UFH <0.04 IU/mL [facility] LABORATORY Comment: Guidelines for therapeutic unfractionate [...] Organization Address City/State/ZIP Code Phon e Number [address] Magnesium (12/06/2019 3:36 AM EDT) P athologist Signature Magnesium 0.86 0.69 - 1.07 [facility] mmol/L [facility] LABORATORY Specimen Anatomical Collection Method Collection Time Receive d Time (Source) Location / / Volume Laterality Blood specimen 12/06/2019 3:36 AM 020 3:45 (specimen) EDT AM EDT Resulting Agency Comment Spec In Lab Gretchen Yoon MD CHEMISTRY ORDERABLES Performing Organization Address City/State/ZIP [place] [address] (ABNORMAL) BMP w/fasting Glucose (12/06/2019 3:36 AM EDT) P athologist Signature Glucose 103 (H) 65 - 99 [facility] Fasting mg/dL [facility] LABORATORY Comment: ?Fasting* Glucose Interpretive C riteria [...] of Diabetes Mellitus, Position Statement from the [place] [employer]. ??Diabete s Care, Volume 33, Supplement 1, Jul 2009 BUN 20 10 - 20 mg/dL [facility] LABORATORY Creatinine 0.88 0.80 - 1.50 mg/dL [facility] LABORATORY Sodium 136 135 - 145 mmol/L [facility] LABORATORY Potassium 4.0 3.5 - 5.0 mmol/L [facility] LABORATORY Comment: Please note: ??Patients with WBC >100,00 0 may have falsely elevated Potassium levels. ??For accurate Potassium quantif ication in these patients send serum separator tube (gold top) for subsequent determinations. ??Contact the Clinical Chemistry Laboratory if there are any qu estions. Chloride 103 98 - 107 mmol/L [facility] LABORATORY CO2 19 (L) 22 - 31 mmol/L [facility] LABORATORY Anion Gap 14 5 - 15 mmol/L [facility] LABORATORY Calcium 8.7 8.5 - 10.5 mg/dL [facility] LABORATORY Estimated GFR 85 >=60 mL/min/1.73 m?? [facility] LABORATORY Comment: The eGFR was calculated using the CKD-EP I equation. As with all creatinine based estimates of kidney function, eGFR values calculated with the CKD-EPI equation are not accurate in patients wi th acute kidney failure, extremes of body mass or the acutely ill. http://Olig[employer]/[facility] eGFR 99 >=60 mL/min/1.73 m?? [facility] LABORATORY Comment: The eGFR was calculated using the CKD-EP I equation. As with all creatinine based estimates of kidney function, eGFR values calculated with the CKD-EPI equation are not accurate in patients wi th acute kidney failure, extremes of body mass or the acutely ill. http://[employer]/[facility] Specimen Anatomical Collection Method Collection Time Receive d Time (Source) Location / / Volume Laterality Blood specimen 12/06/2019 3:36 AM 020 3:45 (specimen) EDT AM EDT Resulting Agency Comment Spec In Lab Gretchen Yoon MD CHEMISTRY ORDERABLES Performing Organization Address City/State/ZIP [place] [address] (ABNORMAL) Hemogram (12/06/2019 3:36 AM EDT) Analysis Performed At Patho logist Time Signature WBC 9.2 4.0 - 9.5 [facility] x10(3)/[facility] LABORATORY RBC 3.99 (L) 4.58 - [place] OLIVIA 5.54 [facility] x10(6)/[facility] LABORATORY Hemoglobin 11.9 (L) 13.7 - [facility] [place] 16.5 gm/dL [facility] LABORATORY Hematocrit 35.5 (L) 40.5 - [facility] 48.5 % [facility] LABORATORY MCV 89.0 82.9 - [facility] 93.1 [facility] LABORATORY MCH 29.8 27.5 - [facility] OLIVIA 32.1 pg [facility] LABORATORY MCHC 33.5 32.0 - [facility] [place]IV[place] 35.7 gm/dL [facility] LABORATORY Platelets 164 145 - 357 [facility] x10(3)/[facility] LABORATORY RDWSD 47.6 (H) 36.0 - [place] OLIVIA 45.0 [facility] LABORATORY RDWCV 14.7 (H) 11.4 - [facility] OLIVIA 13.8 % [facility] LABORATORY MPV 11.9 7.6 - 12.9 [facility] LABORATORY nRBC % Auto 0.0 % [facility] LABORATORY nRBC Abs Auto 0.000 0.000 - [place] OLIVIA 0.000 [facility] x10(3)/[facility] LABORATORY Specimen Anatomical Collection Method Collection Time Receive d Time (Source) Location / / Volume Laterality Blood specimen 12/06/2019 3:36 AM 020 3:45 (specimen) EDT AM EDT Resulting Agency Comment Spec In Lab Gretchen Yoon MD HEMATOLOGY ORDERABLES Performing Organization Address City/[facility]/ZIP [place] [address] (ABNORMAL) Differential, Automated (12/05/2019 10:52 PM EDT) [facility] Method Time Signature Neutrophils % 61.9 % [facility] LABORATORY Neutr Abs (ANC) 6.02 1.70 - [facility] 6.10 [facility] x10(3)/[facility] LABORATORY Lymphocytes % 22.4 % [facility] LABORATORY Lymphocytes Abs 2.2 0.9 - 3.2 [facility] x10(3)/[facility] LABORATORY Monocytes % 10.4 % [facility] LABORATORY Monocyte Abs 1.0 (H) 0.3 - 0.9 [facility] [place] x10(3)/[facility] LABORATORY Eosinophils % 4.1 % [facility] LABORATORY Eosinophils Abs 0.4 0.0 - 0.4 [facility] x10(3)/[facility] LABORATORY Basophils % 0.7 % [facility] LABORATORY Basophils Abs 0.1 0.0 - 0.1 [facility] x10(3)/[facility] LABORATORY Immature Gran % 0.50 % [facility] LABORATORY Comment: Immature granulocytes(IG's)percentage an d absolute count will include metamyelocytes, myelocytes, and promyelo cytes. Blood smears from CBCs yielding IG's will be scanned manually for concor dance. If this scan disagrees with the automated IG or if promyelocytes are not ed, a manual differential will be performed. Pita Gran Abs 0.05 (H) 0.00 - 0.04 x10(3)/[facility] LABORATORY Specimen Anatomical Collection Method Collection Time Receive d Time (Source) Location / / Volume Laterality Blood specimen 12/05/2019 10:52 0 (specimen) PM EDT 10:59 PM EDT Resulting Agency Comment Spec In Lab Mandi Barrera MD HEMATOLOGY ORDERABLES Performing Organization Address City/State/[place] [address] (ABNORMAL) Hemogram (12/05/2019 10:52 PM EDT) Analysis Performed At [facility] logist Time Signature WBC 9.7 (H) 4.0 - 9.5 [facility] x10(3)/[facility] LABORATORY RBC 4.07 (L) 4.58 - MELINA [place] 5.54 [facility] x10(6)/[facility] LABORATORY Hemoglobin 11.9 (L) 13.7 - MELINA [place] 16.5 gm/dL [facility] LABORATORY Hematocrit 36.4 (L) 40.5 - MEL[place] 48.5 % [facility] LABORATORY MCV 89.4 82.9 - [facility] OLIV[place] 93.1 [facility] LABORATORY MCH 29.2 27.5 - MELINA [place] 32.1 pg [facility] LABORATORY MCHC 32.7 32.0 - MELINA [place] 35.7 gm/dL [facility] LABORATORY Platelets 167 145 - 357 [facility] x10(3)/[facility] LABORATORY RDWSD 47.7 (H) 36.0 - MELINA [place] 45.0 [facility] RDWCV 14.6 (H) 11.4 - [facility] 13.8 % [facility] LABORATORY MPV 12.1 7.6 - 12.9 [facility] LABORATORY nRBC % Auto 0.0 % [facility] LABORATORY nRBC Abs Auto 0.000 0.000 - [facility] OLIVIA 0.000 [facility] x10(3)/[facility] LABORATORY Specimen Anatomical Collection Method Collection Time Receive d Time (Source) Location / / Volume Laterality Blood specimen 12/05/2019 10:52 0 (specimen) PM EDT 10:59 PM EDT Resulting Agency Comment Spec In Lab Mandi Barrera MD HEMATOLOGY ORDERABLES Performing Organization Address City/State/[place] [address] Heparin (unfractionated) Level (12/05/2019 10:52 PM EDT) P athologist Signature Heparin UFH <0.04 IU/mL [facility] LABORATORY Comment: Guidelines for therapeutic unfractionate [...] Organization Address City/State/ZIP [place] [address] MRI Brain wwo Contrast [...] e number below. Paris Lagos MD IMG MRI ORDERABLES (ABNORMAL) Hemogram (12/05/2019 1:00 PM EDT) Analysis Performed At Patho logist Time Signature WBC 8.7 4.0 - 9.5 [facility] x10(3)/[facility] LABORATORY RBC 4.17 (L) 4.58 - [facility] 5.54 [facility] x10(6)/[facility] LABORATORY Hemoglobin 12.4 (L) 13.7 - [facility] 16.5 gm/dL [facility] LABORATORY Hematocrit 37.0 (L) 40.5 - [facility] 48.5 % [facility] LABORATORY MCV 88.7 82.9 - [facility] 93.1 [facility] LABORATORY MCH 29.7 27.5 - [facility] 32.1 pg [facility] LABORATORY MCHC 33.5 32.0 - [facility] 35.7 gm/dL [facility] LABORATORY Platelets 173 145 - 357 [facility] x10(3)/[facility] LABORATORY RDWSD 47.3 (H) 36.0 - [facility] 45.0 [facility] LABORATORY RDWCV 14.6 (H) 11.4 - [facility] 13.8 % [facility] LABORATORY MPV 12.1 7.6 - 12.9 [facility] LABORATORY nRBC % Auto 0.0 % [facility] LABORATORY nRBC Abs Auto 0.000 0.000 - [facility] 0.000 [facility] x10(3)/[facility] LABORATORY Specimen Anatomical Collection Method Collection Time Receive d Time (Source) Location / / Volume Laterality Blood specimen 12/05/2019 1:00 PM 020 1:13 (specimen) EDT PM EDT Resulting Agency Comment Spec In Lab Gretchen Yoon MD HEMATOLOGY ORDERABLES Performing Organization Address City/State/[place] [address] EKG 12 Lead (12/05/2019 10:52 AM EDT) Component Value Ref Range Test Analysis Performed Pathologis t Method Time At Signature Ventricular rate 72 BPM MUSE SYSTEM Atrial Rate 72 BPM MUSE SYSTEM P-R Interval 138 ms MUSE SYSTEM QRS Duration 96 ms MUSE SYSTEM Q-T Interval 396 ms MUSE SYSTEM QTC Calculated 433 ms MUSE SYSTEM (Bezet) Calculated P [place] 65 degrees MUSE SYSTEM Calculated R [place] 13 degrees MUSE SYSTEM Calculated T [place] 0 degrees MUSE SYSTEM INTERPRETATION Sinus rhythm Occasional Premature ventricular complexe s MUSE SYSTEM Possible Inferior infarct (cited on or before 29-NOV-2019) Abnormal ECG When compared with ECG of 04-DEC-2019 10:43, Sinus rhythm has replaced Atrial fibrillation Vent. rate has decreased BY ??86 BPM Confirmed by MD Ceja Daniel ([id number]) on 12/05/2019 3:55:22 PM Specimen Anatomical Collection Method Collection Time Receive d Time (Source) Location / / Volume Laterality 12/05/2019 10:52 12/05/2019 3:55 AM EDT PM EDT Paris Lagos MD ECG ORDERABLES Performing Organization Address City/State/ZIP Code Phon e Number MUSE SYSTEM Duplex Study for DVT, Bilat legs (12/05/2019 7:00 AM EDT) Component Value Ref Test Analysis Performed At [facility] Range Method Time Signature VB Text Department: Vascular Surgery Lab VASCUBASE Report Patient: [id number] (ANGEL LUIS SALINAS) CPT: 58145 ICD10: I26.99 Referring Physician: GRETCHEN YOON ?? [...] Number VASCUBASE Magnesium (12/05/2019 4:18 AM EDT) athologist Signature Magnesium 0.87 0.69 - 1.07 [facility] mmol/L [facility] LABORATORY Specimen Anatomical Collection Method Collection Time Receive d Time (Source) Location / / Volume Laterality Blood specimen 12/05/2019 4:18 AM 020 4:31 (specimen) EDT AM EDT Resulting Agency Comment Spec In Lab Gretchen Yoon MD CHEMISTRY ORDERABLES Performing Organization Address City/[facility]/ZIP [place] [address] (ABNORMAL) BMP w/fasting Glucose (12/05/2019 4:18 AM EDT) P athologist Signature Glucose 104 (H) 65 - 99 [facility] Fasting mg/dL [facility] LABORATORY Comment: ?Fasting* Glucose Interpretive C riteria [...] of Diabetes Mellitus, Position Statement from the [place] [employer]. ??Diabete s Care, Volume 33, Supplement 1, Jul 2009 BUN 21 (H) 10 - 20 mg/dL [facility] LABORATORY Creatinine 1.02 0.80 - 1.50 mg/dL [facility] LABORATORY Sodium 136 135 - 145 mmol/L [facility] LABORATORY Potassium 3.9 3.5 - 5.0 mmol/L [facility] LABORATORY Comment: Please note: ??Patients with WBC >100,00 0 may have falsely elevated Potassium levels. ??For accurate Potassium quantif ication in these patients send serum separator tube (gold top) for subsequent determinations. ??Contact the Clinical Chemistry Laboratory if there are any qu estions. Chloride 103 98 - 107 mmol/L [facility] LABORATORY CO2 21 (L) 22 - 31 mmol/L [facility] LABORATORY Anion Gap 12 5 - 15 mmol/L [facility] LABORATORY Calcium 8.8 8.5 - 10.5 mg/dL [facility] LABORATORY Estimated GFR 73 >=60 mL/min/1.73 m?? [facility] LABORATORY Comment: The eGFR was calculated using the CKD-EP I equation. As with all creatinine based estimates of kidney function, eGFR values calculated with the CKD-EPI equation are not accurate in patients wi th acute kidney failure, extremes of body mass or the acutely ill. http://Oligasis/[facility] eGFR 84 >=60 mL/min/1.73 m?? [facility] LABORATORY Comment: The eGFR was calculated using the CKD-EP I equation. As with all creatinine based estimates of kidney function, eGFR values calculated with the CKD-EPI equation are not accurate in patients wi th acute kidney failure, extremes of body mass or the acutely ill. http://Oligasis/[facility] Specimen Anatomical Collection Method Collection Time Receive d Time (Source) Location / / Volume Laterality Blood specimen 12/05/2019 4:18 AM 020 4:31 (specimen) EDT AM EDT Resulting Agency Comment Spec In Lab Gretchen Yoon MD CHEMISTRY ORDERABLES Performing Organization Address City/State/[place] [address] (ABNORMAL) Hemogram (12/05/2019 4:18 AM EDT) Analysis Performed At Patho logist Time Signature WBC 8.6 4.0 - 9.5 [facility] x10(3)/[facility] LABORATORY RBC 4.28 (L) 4.58 - MELINA OLIVIA 5.54 [facility] x10(6)/[facility] LABORATORY Hemoglobin 12.4 (L) 13.7 - [facility] 16.5 gm/dL [facility] LABORATORY Hematocrit 37.3 (L) 40.5 - [facility] 48.5 % [facility] LABORATORY MCV 87.1 82.9 - [facility] 93.1 [facility] LABORATORY MCH 29.0 27.5 - [facility] 32.1 pg [facility] MCHC 33.2 32.0 - [facility] 35.7 gm/dL [facility] LABORATORY Platelets 163 145 - 357 [facility] x10(3)/[facility] LABORATORY RDWSD 46.4 (H) 36.0 - [facility] LABORATORY RDWCV 14.4 (H) 11.4 - [facility] 13.8 % [facility] LABORATORY MPV 11.7 7.6 - 12.9 [facility] LABORATORY nRBC % Auto 0.0 % [facility] LABORATORY nRBC Abs Auto 0.000 0.000 - [facility] 0.000 [facility] x10(3)/[facility] LABORATORY Specimen Anatomical Collection Method Collection Time Receive d Time (Source) Location / / Volume Laterality Blood specimen 12/05/2019 4:18 AM 020 4:31 (specimen) EDT AM EDT Resulting Agency Comment Spec In Lab Gretchen Yoon MD HEMATOLOGY ORDERABLES Performing Organization Address City/State/[place] [address] Cardiac for Morphology [...] For questions regarding this report, please contact [facility] number below. ? Electronically signed by: Roselyn Luciano [facility] ([phone]), at 12/04/2019 6:16 PM Narrative 12/04/2019 6:16 PM EDT EXAMINATION: CT [...] from neck/greatest puja meter to back wall: SUDANESE 91, CAU 13: ??19 mm CORTES ??1, [...] No significant find ings. Procedure Note Roselyn Salazar MD - 2019 EXAMINATION: CT CARDIAC FOR [...] from neck/greatest puja meter to back wall: SUDANESE 91, CAU 13: 19 mm CORTES 1, [...] contact e number below. Electronically signed by: Roselyn Luciano, [facility] ([phone]), at 12/04/2019 6:16 PM Gretchen Yoon MD IMG CT ORDERABLES (ABNORMAL) Hemogram (12/04/2019 12:55 PM EDT) Analysis Performed At Patho logist Time Signature WBC 8.9 4.0 - 9.5 [facility] [place] x10(3)/[facility] LABORATORY RBC 4.69 4.58 - [facility] [place] 5.54 [facility] x10(6)/[facility] LABORATORY Hemoglobin 13.5 (L) 13.7 - [facility] 16[facility] gm/dL [facility] LABORATORY Hematocrit 41.7 40.5 - [facility] [place] 48.5 % [facility] LABORATORY MCV 88.9 82.9 - [facility] 93.1 fL [facility] LABORATORY MCH 28.8 27.5 - [place] OLIVIA 32.1 pg [facility] LABORATORY MCHC 32.4 32.0 - [facility] [place] 35.7 gm/dL [facility] LABORATORY Platelets 196 145 - 357 [facility] x10(3)/[facility] LABORATORY RDWSD 46.7 (H) 36.0 - MELINA OLIVIA 45.0 [facility] LABORATORY RDWCV 14.5 (H) 11.4 - MELINA OLIVIA 13.8 % [facility] LABORATORY MPV 12.1 7.6 - 12.9 MELINA MONAE [facility] LABORATORY nRBC % Auto 0.0 % [facility] LABORATORY nRBC Abs Auto 0.000 0.000 - MELINA MONAE 0.000 [facility] x10(3)/[facility] LABORATORY Specimen Anatomical Collection Method Collection Time Receive d Time (Source) Location / / Volume Laterality Blood specimen 12/04/2019 12:55 0 1:06 (specimen) PM EDT PM EDT Resulting Agency Comment Spec In Lab Gretchen Yoon MD HEMATOLOGY ORDERABLES Performing Organization Address City/[facility]/ZIP [place] [address] EKG 12 Lead (12/04/2019 10:43 AM EDT) Component Value Ref Range Test Analysis Performed Pathologis t Method Time At Signature Ventricular rate 158 BPM MUSE SYSTEM Atrial Rate 102 BPM MUSE SYSTEM QRS Duration 92 ms MUSE SYSTEM Q-T Interval 294 ms MUSE SYSTEM QTC Calculated 476 ms MUSE SYSTEM (Bezet) Calculated R [place] 17 degrees MUSE SYSTEM Calculated T [place] 90 degrees MUSE SYSTEM INTERPRETATION Atrial fibrillation with rapid ventricular response MUSE SYSTEM Possible Inferior infarct (cited on or before 29-NOV-2019) Abnormal ECG When compared with ECG of 30-NOV-2019 21:07, Atrial fibrillation has replaced Sinus rhythm Vent. rate has increased BY ??65 BPM Confirmed by MD Ceja Daniel ([id number]) on 12/05/2019 8:59:44 AM Specimen Anatomical Collection Method Collection Time Receive d Time (Source) Location / / Volume Laterality 12/04/2019 10:43 12/05/2019 8:59 AM EDT AM EDT Gretchen Yoon MD ECG ORDERABLES Performing Organization Address City/State/ZIP Code Phon e Number MUSE SYSTEM (ABNORMAL) Magnesium (12/04/2019 4:28 AM EDT) P athologist Signature Magnesium 1.17 (H) 0.69 - 1.07 [facility] mmol/L [facility] LABORATORY Specimen Anatomical Collection Method Collection Time Receive d Time (Source) Location / / Volume Laterality Blood specimen 12/04/2019 4:28 AM 020 4:40 (specimen) EDT AM EDT Resulting Agency Comment Spec In Lab Gretchen Yoon MD CHEMISTRY ORDERABLES Performing Organization Address City/State/[place] [address] (ABNORMAL) BMP w/fasting Glucose (12/04/2019 4:28 AM EDT) athologist Signature Glucose 108 (H) 65 - 99 [facility] Fasting mg/dL [facility] LABORATORY Comment: ?Fasting* Glucose Interpretive C riteria [...] of Diabetes Mellitus, Position Statement from the [place] [employer]. ??Diabete s Care, Volume 33, Supplement 1, Jul 2009 BUN 19 10 - 20 mg/dL [facility] LABORATORY Creatinine 0.89 0.80 - 1.50 mg/dL [facility] LABORATORY Sodium 135 135 - 145 mmol/L [facility] LABORATORY Potassium 4.2 3.5 - 5.0 mmol/L [facility] LABORATORY Comment: Please note: ??Patients with WBC >100,00 0 may have falsely elevated Potassium levels. ??For accurate Potassium quantif ication in these patients send serum separator tube (gold top) for subsequent determinations. ??Contact the Clinical Chemistry Laboratory if there are any qu estions. Chloride 104 98 - 107 mmol/L [facility] LABORATORY CO2 19 (L) 22 - 31 mmol/L [facility] LABORATORY Anion Gap 12 5 - 15 mmol/L [facility] LABORATORY Calcium 8.5 8.5 - 10.5 mg/dL [facility] LABORATORY Estimated GFR 85 >=60 mL/min/1.73 m?? [facility] LABORATORY Comment: The eGFR was calculated using the CKD-EP I equation. As with all creatinine based estimates of kidney function, eGFR values calculated with the CKD-EPI equation are not accurate in patients wi th acute kidney failure, extremes of body mass or the acutely ill. http://Oligasis/[facility]ON[facility] eGFR 98 >=60 mL/min/1.73 m?? [facility] LABORATORY Comment: The eGFR was calculated using the CKD-EP I equation. As with all creatinine based estimates of kidney function, eGFR values calculated with the CKD-EPI equation are not accurate in patients wi th acute kidney failure, extremes of body mass or the acutely ill. http://Oligasis/[facility]f Specimen Anatomical Collection Method Collection Time Receive d Time (Source) Location / / Volume Laterality Blood specimen 12/04/2019 4:28 AM 020 4:40 (specimen) EDT AM EDT Resulting Agency Comment Spec In Lab Gretchen Yoon MD CHEMISTRY ORDERABLES Performing Organization Address City/State/ZIP [place] [address] (ABNORMAL) Hemogram (12/04/2019 4:28 AM EDT) Analysis Performed At Patho logist Time Signature WBC 7.8 4.0 - 9.5 [facility] x10(3)/[facility] LABORATORY RBC 4.10 (L) 4.58 - [facility] 5.54 [facility] x10(6)/[facility] LABORATORY Hemoglobin 12.0 (L) 13.7 - [facility] 16.5 gm/dL [facility] LABORATORY Hematocrit 36.5 (L) 40.5 - [facility] 48.5 % [facility] LABORATORY MCV 89.0 82.9 - [facility] 93.1 fL [facility] LABORATORY MCH 29.3 27.5 - MELINA MONAE 32.1 pg [facility] LABORATORY MCHC 32.9 32.0 - MELINA MONAE 35.7 gm/dL [facility] LABORATORY Platelets 151 145 - 357 MELINA [facility] x10(3)/[facility] LABORATORY RDWSD 46.9 (H) 36.0 - MELINA MONAE 45.0 [facility] LABORATORY RDWCV 14.4 (H) 11.4 - MELINA MONAE 13.8 % [facility] LABORATORY MPV 12.2 7.6 - 12.9 MELINA MONAE fL [facility] LABORATORY nRBC % Auto 0.0 % [facility] nRBC Abs Auto 0.000 0.000 - MELINA MONAE 0.000 [facility] x10(3)/[facility] LABORATORY Specimen Anatomical Collection Method Collection Time Receive d Time (Source) Location / / Volume Laterality Blood specimen 12/04/2019 4:28 AM 020 4:40 (specimen) EDT AM EDT Resulting Agency Comment Spec In Lab Gretchen Yoon MD HEMATOLOGY ORDERABLES Performing Organization Address City/[facility]/ZIP Code Phon e Number [address] Potassium (12/03/2019 7:55 PM EDT) athologist Signature Potassium 3.9 3.5 - 5.0 [facility]L [facility] LABORATORY Comment: Please note: ??Patients with [...] Organization Address City/State/ZIP Code Phon e Number [address] Potassium (12/03/2019 1:57 PM EDT) athologist Signature Potassium 3.7 3.5 - 5.0 MELINA OLIVIA mmol/L [facility] LABORATORY Comment: Please note: ??Patients with [...] Organization Address City/State/[place] [address] (ABNORMAL) Hemogram (12/03/2019 1:57 PM EDT) Analysis Performed At Patho logist Time Signature WBC 8.8 4.0 - 9.5 [facility] x10(3)/[facility] LABORATORY RBC 4.27 (L) 4.58 - MELINA OLIVIA 5.54 [facility] x10(6)/[facility] LABORATORY Hemoglobin 12.5 (L) 13.7 - MELINA OLIVIA 16.5 gm/dL [facility] LABORATORY Hematocrit 37.5 (L) 40.5 - MELINA OLIVIA 48.5 % [facility] LABORATORY MCV 87.8 82.9 - MELINA OLIVIA 93.1 [facility] LABORATORY MCH 29.3 27.5 - MELINA OLIVIA 32.1 pg [facility] LABORATORY MCHC 33.3 32.0 - MELINA OLIVIA 35.7 gm/dL [facility] LABORATORY Platelets 158 145 - 357 [employer] x10(3)/[facility] LABORATORY RDWSD 46.9 (H) 36.0 - MELINA OLIVIA 45.0 [facility] LABORATORY RDWCV 14.5 (H) 11.4 - MELINA OLIVIA 13.8 % [facility] LABORATORY MPV 12.2 7.6 - 12.9 MELINA OLIVIA [facility] LABORATORY nRBC % Auto 0.0 % [facility] LABORATORY nRBC Abs Auto 0.000 0.000 - MELINA OLIVIA 0.000 [facility] x10(3)/[facility] LABORATORY Specimen Anatomical Collection Method Collection Time Receive d Time (Source) Location / / Volume Laterality Blood specimen 12/03/2019 1:57 PM 020 2:21 (specimen) EDT PM EDT Resulting Agency Comment Spec In Lab Gretchen Yoon MD HEMATOLOGY ORDERABLES Performing Organization Address City/State/ZIP Code Phon e Number [address] Magnesium (12/03/2019 4:02 AM EDT) athologist Signature Magnesium 0.79 0.69 - 1.07 [facility] mmol/L [facility] LABORATORY Specimen Anatomical Collection Method Collection Time Receive d Time (Source) Location / / Volume Laterality Blood specimen 12/03/2019 4:02 AM 020 4:16 (specimen) EDT AM EDT Resulting Agency Comment Spec In Lab Gretchen Yoon MD CHEMISTRY ORDERABLES Performing Organization Address City/State/ZIP [place] [address] (ABNORMAL) BMP w/fasting Glucose (12/03/2019 4:02 AM EDT) P athologist Signature Glucose 100 (H) 65 - 99 [facility] Fasting mg/dL [facility] LABORATORY Comment: ?Fasting* Glucose Interpretive C riteria [...] of Diabetes Mellitus, Position Statement from the [place] [employer]. ??Diabete s Care, Volume 33, Supplement 1, Jul 2009 BUN 17 10 - 20 mg/dL [facility] LABORATORY Creatinine 0.95 0.80 - 1.50 mg/dL [facility] LABORATORY Sodium 136 135 - 145 mmol/L [facility] LABORATORY Potassium 3.4 (L) 3.5 - 5.0 mmol/L [facility] LABORATORY Comment: Please note: ??Patients with WBC >100,00 0 may have falsely elevated Potassium levels. ??For accurate Potassium quantif ication in these patients send serum separator tube (gold top) for subsequent determinations. ??Contact the Clinical Chemistry Laboratory if there are any qu estions. Chloride 103 98 - 107 mmol/L [facility] LABORATORY CO2 18 (L) 22 - 31 mmol/L [facility] LABORATORY Anion Gap 15 5 - 15 mmol/L [facility] LABORATORY Calcium 8.3 (L) 8.5 - 10.5 mg/dL [facility] LABORATORY Estimated GFR 79 >=60 mL/min/1.73 m?? [facility] LABORATORY Comment: The eGFR was calculated using the CKD-EP I equation. As with all creatinine based estimates of kidney function, eGFR values calculated with the CKD-EPI equation are not accurate in patients wi th acute kidney failure, extremes of body mass or the acutely ill. [email or web address]/[facility]ONnkf eGFR 92 >=60 mL/min/1.73 m?? [facility] LABORATORY Comment: The eGFR was calculated using the CKD-EP I equation. As with all creatinine based estimates of kidney function, eGFR values calculated with the CKD-EPI equation are not accurate in patients wi th acute kidney failure, extremes of body mass or the acutely ill. [email or web address] Specimen Anatomical Collection Method Collection Time Receive d Time (Source) Location / / Volume Laterality Blood specimen 12/03/2019 4:02 AM 020 4:16 (specimen) EDT AM EDT Resulting Agency Comment Spec In Lab Gretchen Yoon MD CHEMISTRY ORDERABLES Performing Organization Address City/State/[place] [address] (ABNORMAL) Hemogram (12/03/2019 4:02 AM EDT) Analysis Performed At Patho logist Time Signature WBC 9.1 4.0 - 9.5 [facility] x10(3)/[facility] LABORATORY RBC 4.01 (L) 4.58 - [facility] 5.54 [facility] x10(6)/[facility] LABORATORY Hemoglobin 11.8 (L) 13.7 - [facility] 16.5 gm/dL [facility] LABORATORY Hematocrit 35.6 (L) 40.5 - [facility] 48.5 % [facility] LABORATORY MCV 88.8 82.9 - [facility] 93.1 [facility] LABORATORY MCH 29.4 27.5 - [facility] 32.1 pg [facility]ATORY MCHC 33.1 32.0 - [facility]dL [facility] LAB[facility]ORY Platelets 130 (L) 145 - 357 [facility] x10(3)/[facility] LABORATORY RDWSD 46.6 (H) 36.0 - [facility] 45.0 [facility] LABORATORY RDWCV 14.4 (H) 11.4 - [facility] 13.8 % [facility] LABORATORY MPV 12.4 7.6 - 12.9 [facility] LABORATORY nRBC % Auto 0.0 % [facility] LABORATORY nRBC Abs Auto 0.000 0.000 - [facility] x10(3)/[facility] LABORATORY Specimen Anatomical Collection Method Collection Time Receive d Time (Source) Location / / Volume Laterality Blood specimen 12/03/2019 4:02 AM 020 4:16 (specimen) EDT AM EDT Resulting Agency Comment Spec In Lab Gretchen Yoon MD HEMATOLOGY ORDERABLES Performing Organization Address City/State/[place] [address] XR Chest One View [...] Signature WBC 10.6 (H) 4.0 - 9.5 [facility] x10(3)/[facility] LABORATORY RBC 4.00 (L) 4.58 - [facility] 5.54 [facility] x10(6)/[facility] LABORATORY Hemoglobin 11.9 (L) 13.7 - [facility] 16.5 gm/dL [facility] LABORATORY Hematocrit 35.7 (L) 40.5 - [facility] 48.5 % [facility] LABORATORY MCV 89.3 82.9 - [facility] 93.1 [facility] LABORATORY MCH 29.8 27.5 - [facility] 32.1 pg [facility] LABORATORY MCHC 33.3 32.0 - [facility] 35.7 gm/dL [facility] LABORATORY Platelets 120 (L) 145 - 357 [facility] x10(3)/[facility] LABORATORY RDWSD 47.5 (H) 36.0 - [facility] 45.0 [facility] LABORATORY RDWCV 14.6 (H) 11.4 - [facility] 13.8 % [facility] LABORATORY MPV 12.0 7.6 - 12.9 [facility] LABORATORY nRBC % Auto 0.0 % [facility] LABORATORY nRBC Abs Auto 0.000 0.000 - [facility] 0.000 [facility] x10(3)/[facility] LABORATORY Specimen Anatomical Collection Method Collection Time Receive d Time (Source) Location / / Volume Laterality Blood specimen 12/02/2019 12:50 0 1:22 (specimen) PM EDT PM EDT Resulting Agency Comment Spec In Lab Gretchen Yoon MD HEMATOLOGY ORDERABLES Performing Organization Address City/State/[place] [address] Blue Tube HOLD (12/02/2019 4:55 AM EDT) P athologist Signature Blue Hold Sample in [facility] lab. [facility] LABORATORY Specimen Anatomical Collection Method Collection Time Receive d Time (Source) Location / / Volume Laterality Blood specimen Venous Draw / 12/02/2019 4:55 AM 2019 5:03 (specimen) Unknown EDT AM EDT Darrell Glasgow MD HEMATOLOGY ORDERABLES Performing Organization Address City/State/ZIP Code Phon e Number [address] Magnesium (12/02/2019 4:55 AM EDT) athologist Signature Magnesium 0.85 0.69 - 1.07 [facility] mmol/L [facility] LABORATORY Specimen Anatomical Collection Method Collection Time Receive d Time (Source) Location / / Volume Laterality Blood specimen 12/02/2019 4:55 AM 020 5:02 (specimen) EDT AM EDT Resulting Agency Comment Spec In Lab Gretchen Yoon MD CHEMISTRY ORDERABLES Performing Organization Address City/[facility]/ZIP [place] [address] (ABNORMAL) BMP w/fasting Glucose (12/02/2019 4:55 AM EDT) athologist Signature Glucose 114 (H) 65 - 99 [facility] Fasting mg/dL [facility] LABORATORY Comment: ?Fasting* Glucose Interpretive C riteria [...] of Diabetes Mellitus, Position Statement from the [place] [employer]. ??Diabete s Care, Volume 33, Supplement 1, Jul 2009 BUN 13 10 - 20 mg/dL [facility] LABORATORY Creatinine 0.93 0.80 - 1.50 mg/dL [facility] LABORATORY Sodium 135 135 - 145 mmol/L [facility] LABORATORY Potassium 3.7 3.5 - 5.0 mmol/L [facility] LABORATORY Comment: Please note: ??Patients with WBC >100,00 0 may have falsely elevated Potassium levels. ??For accurate Potassium quantif ication in these patients send serum separator tube (gold top) for subsequent determinations. ??Contact the Clinical Chemistry Laboratory if there are any qu estions. Chloride 105 98 - 107 mmol/L [facility] LABORATORY CO2 18 (L) 22 - 31 mmol/L [facility] LABORATORY Anion Gap 12 5 - 15 mmol/L [facility] LABORATORY Calcium 8.1 (L) 8.5 - 10.5 mg/dL [facility] LABORATORY Estimated GFR 81 >=60 mL/min/1.73 m?? [facility] LABORATORY Comment: The eGFR was calculated using the CKD-EP I equation. As with all creatinine based estimates of kidney function, eGFR values calculated with the CKD-EPI equation are not accurate in patients wi th acute kidney failure, extremes of body mass or the acutely ill. [email or web address] eGFR 94 >=60 mL/min/1.73 m?? [facility] LABORATORY Comment: The eGFR was calculated using the CKD-EP I equation. As with all creatinine based estimates of kidney function, eGFR values calculated with the CKD-EPI equation are not accurate in patients wi th acute kidney failure, extremes of body mass or the acutely ill. [email or web address] Specimen Anatomical Collection Method Collection Time Receive d Time (Source) Location / / Volume Laterality Blood specimen 12/02/2019 4:55 AM 020 5:02 (specimen) EDT AM EDT Resulting Agency Comment Spec In Lab Gretchen Yoon MD CHEMISTRY ORDERABLES Performing Organization Address City/State/[place] [address] (ABNORMAL) Hemogram (12/02/2019 4:55 AM EDT) Analysis Performed At Patho logist Time Signature WBC 9.3 4.0 - 9.5 [facility] x10(3)/[facility] LABORATORY RBC 3.71 (L) 4.58 - [facility] 5.54 [facility] x10(6)/[facility] LABORATORY Hemoglobin 10.8 (L) 13.7 - [facility] 16.5 gm/dL [facility] LABORATORY Hematocrit 33.1 (L) 40.5 - [facility] 48.5 % [facility] LABORATORY MCV 89.2 82.9 - [facility] 93.1 [facility] LABORATORY MCH 29.1 27.5 - [facility] 32.1 pg [facility] LABORATORY MCHC 32.6 32.0 - [facility] 35[facility] gm/dL [facility] LABORATORY Platelets 93 (L) 145 - 357 [facility] x10(3)/[facility] LABORATORY RDWSD 47.1 (H) 36.0 - [facility] 45.0 [facility] LABORATORY RDWCV 14.6 (H) 11.4 - [facility] 13.8 % [facility] LABORATORY MPV 11.7 7.6 - 12.9 [facility] LABORATORY nRBC % Auto 0.0 % [facility] LABORATORY nRBC Abs Auto 0.000 0.000 - [facility] 0.000 [facility] x10(3)/[facility] LABORATORY Specimen Anatomical Collection Method Collection Time Receive d Time (Source) Location / / Volume Laterality Blood specimen 12/02/2019 4:55 AM 020 5:02 (specimen) EDT AM EDT Resulting Agency Comment Spec In Lab Gretchen Yoon MD HEMATOLOGY ORDERABLES Performing Organization Address City/State/[place] [address] Transfuse 1 unit platelets, [...] For questions regarding this report, please contact [facility] number below. ? Electronically signed by: Angel Luis Barboza MD, [facility] ([phone]), at 12/01/2019 8:02 PM Narrative 12/01/2019 8:02 [...] For questions regarding this report, please contact [facility] number below. Electronically signed by: Angel Luis Barboza MD, [facility] ([phone]), at 12/01/2019 8:02 PM Gretchen Yoon MD IMG MRI ORDERABLES Prepare Platelets, Apheresis (12/01/2019 6:20 PM EDT) P athologist Signature Dispensed? Yes [facility] LABORATORY Specimen Anatomical Collection Method Collection Time Receive d Time (Source) Location / / Volume Laterality Blood specimen 12/01/2019 6:20 PM 020 6:18 (specimen) EDT PM EDT Gretchen Yoon MD BLOOD BANK ORDERABLES Performing Organization Address City/State/ZIP Code Phon e Number [place] [id number] Drive Duplex for DVT, Arm, Unilat (12/01/2019 5:08 PM EDT) Component Value Ref Test Analysis Performed At Patholo gist Range Method Time Signature VB Text Department: Vascular Surgery Lab VASCUBASE Report Patient: [id number] (ANGEL LUIS SALINAS) CPT: 12362 ICD10: R60.0 Referring Physician: GRETCHEN YOON ?? [...] For questions regarding this report, please contact [facility] number below. ? Electronically signed by: Merari Collins [facility] ([phone]), at 12/01/2019 3:53 PM Narrative 12/01/2019 3:53 PM EDT EXAMINATION: CT HEAD WO CONTRAST (GENERIC) CLINICAL HISTORY: Headache, intracranial hemorrhage suspected Serial CT scan: please assess for propag ation of known ICH noted on prior Head CT/imaging. TECHNIQUE: CT head performed without intravenous co ntrast administration. COMPARISON: Head CT 11/30/2019. CT angiogram of the [place] 11/01. FINDINGS: Ventricles are normal in size. Basal cis terns are patent. Unchanged hyperdense 2.3 x 0.7 x 0.6 cm tubular hemorrhage projecting along the course of the left optic tract (axial se [facility] 2 image 16), consistent with intraparenchymal hematoma. [...] Head CT 11/30/2019. CT angiogram of the [place] 11/01. FINDINGS: Ventricles are normal [...] Scan, Peripheral Blood (12/01/2019 12:51 PM EDT) [facility] Method Time Signature Plat Estimate Decreased [facility] LABORATORY RBC Morphology Normal [facility] LABORATORY Giant Less than 1 /HPF [facility] Platelets [facility] LABORATORY Specimen Anatomical Collection Method Collection Time Receive d Time (Source) Location / / Volume Laterality Blood specimen 12/01/2019 12:51 0 1:05 (specimen) PM EDT PM EDT Resulting Agency Comment Spec In Lab Riki Stevens MD HEMATOLOGY ORDERABLES Performing Organization Address City/State/ZIP [place] [address] (ABNORMAL) Differential, Automated (12/01/2019 12:51 PM EDT) [facility] Method Time Signature Neutrophils % 74.9 % [facility] LABORATORY Neutr Abs (ANC) 6.34 (H) 1.70 - [facility] 6.10 [facility] x10(3)/[facility] LABORATORY Lymphocytes % 11.4 % [facility] LABORATORY Lymphocytes Abs 1.0 0.9 - 3.2 [facility] x10(3)/[facility] LABORATORY Monocytes % 12.4 % [facility] LABORATORY Monocyte Abs 1.0 (H) 0.3 - 0.9 [facility] x10(3)/[facility] LABORATORY Eosinophils % 0.4 % [facility] LABORATORY Eosinophils Abs 0.0 0.0 - 0.4 [facility] x10(3)/[facility] LABORATORY Basophils % 0.4 % [facility] LABORATORY Basophils Abs 0.0 0.0 - 0.1 [facility] x10(3)/[facility] LABORATORY Immature Gran % 0.50 % [facility] LAB[facility]ORY Comment: Immature granulocytes(IG's)percentage an d absolute count will include metamyelocytes, myelocytes, and promyelo cytes. Blood smears from CBCs yielding IG's will be scanned manually for ana nagy. If this scan disagrees with the automated IG or if promyelocytes are not ed, a manual differential will be performed. Pita Gran Abs 0.04 0.00 - 0.04 x10(3)/[facility] Y [facility] LABORATORY Specimen Anatomical Collection Method Collection Time Receive d Time (Source) Location / / Volume Laterality Blood specimen 12/01/2019 12:51 0 1:05 (specimen) PM EDT PM EDT Resulting Agency Comment Spec In Lab Riki Stevens MD HEMATOLOGY ORDERABLES Performing Organization Address City/State/[place] [address] (ABNORMAL) Hemogram (12/01/2019 12:51 PM EDT) Analysis Performed At Patho logist Time Signature WBC 8.4 4.0 - 9.5 [facility] x10(3)/[facility] LABORATORY RBC 3.69 (L) 4.58 - [facility] 5.54 [facility] x10(6)/[facility] LABORATORY Hemoglobin 10.8 (L) 13.7 - [facility] 16[facility] gm/dL [facility] LABORATORY Hematocrit 32.4 (L) 40.5 - [facility] 48.5 % [facility] LABORATORY MCV 87.8 82.9 - [facility] 93.1 [facility] LABORATORY MCH 29.3 27.5 - [facility] [place] 32.1 pg [facility] LABORATORY MCHC 33.3 32.0 - [facility] 35.7 gm/dL [facility] LABORATORY Platelets 72 (L) 145 - 357 [facility] x10(3)/[facility] LABORATORY RDWSD 47.2 (H) 36.0 - [facility]0 [facility] LABORATORY RDWCV 14.6 (H) 11.4 - [facility] 13.8 % [facility] LABORATORY MPV 12.2 7.6 - 12.9 [facility] LABORATORY nRBC % Auto 0.0 % [facility] LABORATORY nRBC Abs Auto 0.000 0.000 - [facility] 0.000 [facility] x10(3)/[facility] LABORATORY Specimen Anatomical Collection Method Collection Time Receive d Time (Source) Location / / Volume Laterality Blood specimen 12/01/2019 12:51 0 1:05 (specimen) PM EDT PM EDT Resulting Agency Comment Spec In Lab Riki Stevens MD HEMATOLOGY ORDERABLES Performing Organization Address City/[facility]/ZIP Code Phon e Number [address] (ABNORMAL) Coox2 (12/01/2019 11:42 AM EDT) Analysis Performed At Patho logist Time Signature pO2 Coox 30 mmHg [facility] LABORATORY Hgb Blood Gas 11.6 (L) 13.7 - [facility] 16.5 gm/dL [facility] LABORATORY O2HB Coox 60.8 % [facility] LABORATORY COHB Coox 0.6 % [facility] LABORATORY Comment: Nonsmokers: 0.5-1.5% COHB Smokers: Variable, but usually less than 10% Toxic: 20-30% COHB Lethal: Greater than 60% COHB METHB Coox 0.6 <=1.5 % [facility] LABORATORY Source Coox Mixed Venous [facility] LABORATORY Specimen Anatomical Collection Method Collection Time Receive d Time (Source) Location / / Volume Laterality Blood specimen 12/01/2019 11:42 0 (specimen) AM EDT 11:42 AM EDT Gretchen Yoon MD CHEMISTRY ORDERABLES Performing Organization Address City/State/ZIP [place] [address] Sedimentation rate (12/01/2019 3:55 AM EDT) P athologist Signature Sed Rate 25 3 - 46 [facility] mm/hr [facility] LABORATORY Comment: Effective June 11, 2019 new [...] Winn MD HEMATOLOGY ORDERABLES Performing Organization Address City/[facility]/ZIP [place] [address] (ABNORMAL) CRP, acute inflammation (12/01/2019 3:55 AM EDT) P athologist Signature CRP 92.5 (H) <=4.9 mg/L [facility] LABORATORY Specimen Anatomical Collection Method Collection Time Receive d Time (Source) Location / / Volume Laterality Blood specimen Venous Draw / 12/01/2019 3:55 AM 2019 4:06 (specimen) Unknown EDT AM EDT Resulting Agency Comment Spec In Lab Rossy Winn MD CHEMISTRY ORDERABLES Performing Organization Address City/[facility]/ZIP [place] [address] ABORH Recheck Status (12/01/2019 3:55 AM EDT) [facility] Method Time Signature ABORH Recheck Order Placed [facility] LABORATORY ABORH Type Complete [facility] LABORATORY Specimen Anatomical Collection Method Collection Time Receive d Time (Source) Location / / Volume Laterality Blood specimen 12/01/2019 3:55 AM 020 4:15 (specimen) EDT AM EDT Resulting Agency Comment Spec In Lab Lewis Gee MD BLOOD BANK ORDERABLES Performing Organization Address City/[facility]/ZIP [place] [address] Antibody screen (12/01/2019 3:55 AM EDT) [facility] Method Time Signature Ab Screen Negative [facility] LABORATORY Expires at 12/04/2019 [facility] [id number] on: [facility] LABORATORY Specimen Anatomical Collection Method Collection Time Receive d Time (Source) Location / / Volume Laterality Blood specimen 12/01/2019 3:55 AM 020 4:15 (specimen) EDT AM EDT Resulting Agency Comment Spec In Lab Lewis Gee MD BLOOD BANK ORDERABLES Performing Organization Address City/State/ZIP [place] [address] ABO/Rh Typing (12/01/2019 3:55 AM EDT) athologist Signature ABORh Type AB Pos [facility] LABORATORY Specimen Anatomical Collection Method Collection Time Receive d Time (Source) Location / / Volume Laterality Blood specimen 12/01/2019 3:55 AM 020 4:15 (specimen) EDT AM EDT Resulting Agency Comment Spec In Lab Lewis Gee MD BLOOD BANK ORDERABLES Performing Organization Address City/[facility]/ZIP [place] [address] (ABNORMAL) Troponin (12/01/2019 3:55 AM EDT) athologist Signature Troponin-T 4.35 (H) 0.00 - [facility] 0.00 ng/mL [facility] LABORATORY Comment: result rechecked-slw The 99th percentile for Troponin T is le ss than 0.01 ng/mL, any detectable cTnT concentration using this assay should be considered elevated. According to the third universal definit ion of myocardial infarction the following criteria with a clinical prese ntation consistent with acute myocardial ischemia meets the diagnosis for a myocardial infarction (HI). Detection of a rise and/or fall of [...] additional sample may be indicated. Reference: Third [place] Definition of Myocardial Infarction. Journal of the [place] [employer] 2012;60:1581-98 Specimen Anatomical Collection Method Collection Time Receive d Time (Source) Location / / Volume Laterality Blood specimen 12/01/2019 3:55 AM 020 4:00 (specimen) EDT AM EDT Resulting Agency Comment Spec In Lab Gretchen Yoon MD CHEMISTRY ORDERABLES Performing Organization Address City/[facility]/ZIP Code Phon e Number [address] Magnesium (12/01/2019 3:55 AM EDT) P athologist Signature Magnesium 0.96 0.69 - 1.07 [facility] mmol/L [facility] LABORATORY Specimen Anatomical Collection Method Collection Time Receive d Time (Source) Location / / Volume Laterality Blood specimen 12/01/2019 3:55 AM 020 4:00 (specimen) EDT AM EDT Resulting Agency Comment Spec In Lab Gretchen Yoon MD CHEMISTRY ORDERABLES Performing Organization Address City/State/ZIP [place] [address] (ABNORMAL) BMP w/fasting Glucose (12/01/2019 3:55 AM EDT) P athologist Signature Glucose 148 (H) 65 - 99 [facility] Fasting mg/dL [facility] LABORATORY Comment: ?Fasting* Glucose Interpretive C riteria [...] of Diabetes Mellitus, Position Statement from the [place] [employer]. ??Diabete s Care, Volume 33, Supplement 1, Jul 2009 BUN 11 10 - 20 mg/dL [facility] LABORATORY Creatinine 0.96 0.80 - 1.50 mg/dL [facility] LABORATORY Sodium 132 (L) 135 - 145 mmol/L [facility] LABORATORY Potassium 4.0 3.5 - 5.0 mmol/L [facility] LABORATORY Comment: Please note: ??Patients with WBC >100,00 0 may have falsely elevated Potassium levels. ??For accurate Potassium quantif ication in these patients send serum separator tube (gold top) for subsequent determinations. ??Contact the Clinical Chemistry Laboratory if there are any qu estions. Chloride 105 98 - 107 mmol/L [facility] LABORATORY CO2 17 (L) 22 - 31 mmol/L [facility] LABORATORY Anion Gap 10 5 - 15 mmol/L [facility] LABORATORY Calcium 7.6 (L) 8.5 - 10.5 mg/dL [facility] LABORATORY Estimated GFR 78 >=60 mL/min/1.73 m?? [facility] LABORATORY Comment: The eGFR was calculated using the CKD-EP I equation. As with all creatinine based estimates of kidney function, eGFR values calculated with the CKD-EPI equation are not accurate in patients wi th acute kidney failure, extremes of body mass or the acutely ill. [email or web address]/[facility]ONnkf eGFR 91 >=60 mL/min/1.73 m?? [facility] LABORATORY Comment: The eGFR was calculated using the CKD-EP I equation. As with all creatinine based estimates of kidney function, eGFR values calculated with the CKD-EPI equation are not accurate in patients wi th acute kidney failure, extremes of body mass or the acutely ill. [email or web address] Specimen Anatomical Collection Method Collection Time Receive d Time (Source) Location / / Volume Laterality Blood specimen 12/01/2019 3:55 AM 020 4:00 (specimen) EDT AM EDT Resulting Agency Comment Spec In Lab Gretchen Yoon MD CHEMISTRY ORDERABLES Performing Organization Address City/State/ZIP Code [place] [facility] [place] [address] (ABNORMAL) Hemogram (12/01/2019 3:55 AM EDT) Analysis [facility] Time Signature WBC 11.0 (H) 4.0 - 9.5 [facility] x10(3)/[facility] LABORATORY RBC 3.46 (L) 4.58 - [facility] 5.54 [facility] x10(6)/[facility] LABORATORY Hemoglobin 10.2 (L) 13.7 - [facility] 16.5 gm/dL [facility] HOSPITAL LABORATORY Hematocrit 31.2 (L) 40.5 - [facility] 48.5 % [facility] MCV 90.2 82.9 - [facility] 93[facility]1 [facility]ATORY MCH 29.5 27.5 - [facility] 32.1 pg [facility] MCHC 32.7 32.0 - [facility] 35.7 gm/dL [facility] Platelets 98 (L) 145 - 357 [facility] x10(3)/[facility] LABORATORY RDWSD 47.9 (H) 36.0 - [facility] 45.0 [facility] LABORATORY RDWCV 14.6 (H) 11.4 - [facility] 13.8 % [facility] LABORATORY MPV 12.3 7.6 - 12.9 [facility] LABORATORY nRBC % Auto 0.0 % [facility] LABORATORY nRBC Abs Auto 0.000 0.000 - [facility] 0.000 [facility] x10(3)/[facility] LABORATORY Specimen Anatomical Collection Method Collection Time Receive d Time (Source) Location / / Volume Laterality Blood specimen 12/01/2019 3:55 AM 020 4:00 (specimen) EDT AM EDT Resulting Agency Comment Spec In Lab Gretchen Yoon MD HEMATOLOGY ORDERABLES Performing Organization Address City/State/[place] [address] (ABNORMAL) BLOOD GAS 2 ARTERIAL (11/30/2019 10:39 PM EDT) Analysis Performed At [facility] Time Signature pH Art 7.45 7.35 - [facility] 7.45 [facility] LABORATORY pCO2 Art 23 (L) 35 - 45 [facility] LABORATORY pO2 Art 76 (L) 85 - 104 [facility] LABORATORY HCO3 Art 15.3 (L) 20.0 - [facility] 26.0 [facility] mmol/L [facility] LABORATORY BE Art -8.7 (L) -3.0 - 3.0 [facility] mmol/L [facility] LABORATORY Hgb Blood Gas 11.7 (L) 13.7 - [facility] 16.5 gm/dL [facility] O2HB Art 94.2 94.0 - [facility] 97.0 % [facility] LABOR[facility] COHB Art 0.5 % [facility] LABORATORY Comment: Nonsmokers: 0.5-1.5% COHB Smokers: Variable, but usually less than 10% Toxic: 20-30% COHB Lethal: Greater than 60% COHB METHB Art 0.6 <=1.5 % [facility] LABORATORY Na Whole Blood 133 (L) 135 - 145 mmol/L [facility] LABOR[facility] K Whole Blood 3.8 3.5 - 5.0 mmol/L [facility] Comment: Please note: Patients with WBC >100,000 may have falsely elevated Potassium levels. Contact the Clinical Chemistry L aboratory if there are any questions. ICa Whole Blood 1.10 (L) 1.15 - 1.33 mmol/L [facility] LABORATORY Comment: Note: ??Total bilirubin higher than 20 m g/dL may lead to falsely low ionized calcium. CL Whole Blood 109 (H) 98 - 107 mmol/L [facility] LABORATORY Gluc Whole Bld 120 65 - 199 mg/dL [facility] LABORATORY Comment: Diabetes: >=200 mg/dL plus symp toms. Lactate WB 0.8 0.5 - 2.2 mmol/L [facility] LABORATORY FIO2 Art 100 % [facility] LABORATORY PF Ratio Art 76 [facility] LABORATORY Specimen Anatomical Collection Method Collection Time Receive d Time (Source) Location / / Volume Laterality Blood specimen 11/30/2019 10:39 0 (specimen) PM EDT 10:39 PM EDT Gretchen Yoon MD CHEMISTRY ORDERABLES Performing Organization Address City/[facility]/ZIP [place] [address] EKG 12 Lead (11/30/2019 [...] (Bezet) Calculated P 12 degrees MUSE SYSTEM [place] Calculated R 19 degrees MUSE SYSTEM [place] Calculated T -47 degrees MUSE SYSTEM [place] INTERPRETATION Sinus rhythm with Premature supraventricular complexes [...] Yoon MD ECG ORDERABLES Performing Organization Address City/[facility]/ZIP Code Phon e Number MUSE SYSTEM (ABNORMAL) Urinalysis Microscopic Exam (11/30/2019 8:40 PM EDT) P athologist Signature RBC UA 27 (H) 0 - 3 /HPF [facility] LABORATORY WBC UA 4 (H) 0 - 3 /HPF [facility] LABORATORY Hyaline Cast 3 (H) 0 - 2 /LPF [facility] LABORATORY Specimen (Source) Anatomical Collection Method Collection Time Re ceived Time Location / / Volume Laterality Urine specimen 11/30/2019 8:40 11/30/2019 obtained via PM EDT 10:51 PM EDT indwelling urinary catheter (specimen) Resulting Agency Comment Spec In Lab Rossy Winn MD URINE ORDERABLES Performing Organization Address City/[facility]/ZIP [place] [address] (ABNORMAL) Urinalysis with reflex Culture (11/30/2019 8:40 PM EDT) Patholo gist Method Time Signature Glucose UA Negative Negative [facility] mg/dL [facility] Protein UA Negative Negative [facility] mg/dL [facility] Bilirubin UA Negative Negative [facility] mg/dL [facility] Comment: Clinical correlation required for positi ve Urine Bilirubin results as false positive may occur with some drugs and d rug related products. If a false positive is suspected a serum total bili morales should be considered if clinically indicated. Urobilinogen UA Normal Normal mg/dL [facility] LABORATORY pH UA 5.5 5.0 - 8.0 [facility] LABORATORY Blood UA Moderate (A) Negative mg/dL [facility] LABORAT[facility] Ketones UA 40 (A) Negative mg/dL [facility]OR[facility] Nitrite UA Negative Negative [facility]OR[facility]ORY Leukocytes UA Trace (A) Negative [facility] LABORATORY Appearance UA Clear Clear [facility] LABORATORY Spec [place] UA 1.026 1.006 - 1.030 [facility] LABORATORY Color UA Yellow Yellow [facility] LABORATORY Culture Reflexed No [facility] LABORATORY Specimen (Source) Anatomical Collection Method Collection Time Re ceived Time Location / / Volume Laterality Urine specimen 11/30/2019 8:40 11/30/2019 obtained via PM EDT 10:51 PM EDT indwelling urinary catheter (specimen) Resulting Agency Comment Spec In Lab Gretchen Yoon MD URINE ORDERABLES Performing Organization Address City/State/[place] [address] (ABNORMAL) pro-Brain Natriuretic Peptide (11/30/2019 8:30 PM EDT) P athologist Signature ProBNP 2,802 (H) <=125 [facility] pg/mL [facility] LABORATORY Specimen Anatomical Collection Method Collection Time Receive d Time (Source) Location / / Volume Laterality Blood specimen Venous Draw / 11/30/2019 8:30 PM 2019 8:36 (specimen) Unknown EDT PM EDT Resulting Agency Comment Spec In Lab Rossy Winn MD CHEMISTRY ORDERABLES Performing Organization Address City/[facility]/ZIP [place] [address] (ABNORMAL) Troponin (11/30/2019 8:30 PM EDT) athologist Signature Troponin-T 5.04 (H) 0.00 - [place] MONAE 0.00 ng/mL [facility] Comment: The 99th percentile for Troponin T is le ss than 0.01 ng/mL, any detectable cTnT concentration using this assay should be considered elevated. According to the third universal definit ion of myocardial infarction the following criteria with a clinical prese ntation consistent with acute myocardial ischemia meets the diagnosis for a myocardial infarction (HI). Detection of a rise and/or fall of [...] additional sample may be indicated. Reference: Third Marsing Definition of Myocardial Infarction. Journal of the [place] [employer] 2012;60:1581-98 Specimen Anatomical Collection Method Collection Time Receive d Time (Source) Location / / Volume Laterality Blood specimen Venous Draw / 11/30/2019 8:30 PM 2019 8:36 (specimen) Unknown EDT PM EDT Resulting Agency Comment Spec In Lab Rossy Winn MD CHEMISTRY ORDERABLES Performing Organization Address City/[facility]/ZIP [place] [address] Magnesium (11/30/2019 8:30 PM EDT) athologist Signature Magnesium 0.79 0.69 - 1.07 [place] mmol/L [facility] LABORATORY Specimen Anatomical Collection Method Collection Time Receive d Time (Source) Location / / Volume Laterality Blood specimen 11/30/2019 8:30 PM 020 8:35 (specimen) EDT PM EDT Resulting Agency Comment Spec In Lab Gretchen Yoon MD CHEMISTRY ORDERABLES Performing Organization Address City/State/[place] [address] (ABNORMAL) Basic Metabolic Panel (non-fasting) (11/30/2019 8:30 PM EDT) athologist Signature Glucose Lvl 132 65 - 199 [facility] mg/dL [facility] Comment: Diabetes: >=200 mg/dL plus symp toms BUN 12 10 - 20 mg/dL [facility] LABORATORY Creatinine 0.94 0.80 - 1.50 mg/dL [facility] LABORATORY Sodium 136 135 - 145 mmol/L [facility] LABORATORY Potassium 3.9 3.5 - 5.0 mmol/L [facility]ORATORY Comment: Please note: ??Patients with WBC >100,00 0 may have falsely elevated Potassium levels. ??For accurate Potassium quantif ication in these patients send serum separator tube (gold top) for subsequent determinations. ??Contact the Clinical Chemistry Laboratory if there are any qu estions. Chloride 108 (H) 98 - 107 mmol/L [facility] LABORATORY CO2 17 (L) 22 - 31 mmol/L [facility]OR[facility] Anion Gap 11 5 - 15 mmol/L [facility] LABORATORY Calcium 7.9 (L) 8.5 - 10.5 mg/dL [facility] LABORATORY Estimated GFR 80 >=60 mL/min/1.73 m?? [facility] LABORATORY Comment: The eGFR was calculated using the CKD-EP I equation. As with all creatinine based estimates of kidney function, eGFR values calculated with the CKD-EPI equation are not accurate in patients wi th acute kidney failure, extremes of body mass or the acutely ill. http://Oligasis/DHnkf eGFR 93 >=60 mL/min/1.73 m?? [facility] LABORATORY Comment: The eGFR was calculated using the CKD-EP I equation. As with all creatinine based estimates of kidney function, eGFR values calculated with the CKD-EPI equation are not accurate in patients wi th acute kidney failure, extremes of body mass or the acutely ill. http://Oligasis/DHMCnkf Specimen Anatomical Collection Method Collection Time Receive d Time (Source) Location / / Volume Laterality Blood specimen 11/30/2019 8:30 PM 020 8:35 (specimen) EDT PM EDT Resulting Agency Comment Spec In Lab Gretchen Yoon MD CHEMISTRY ORDERABLES Performing Organization Address City/[facility] [place] [address] Blood culture (11/30/2019 8:30 PM EDT) Patholo gist Method Time Signature Blood Culture No growth M[place] at 5 days. [facility] Specimen Anatomical Collection Method Collection Time Receive d Time (Source) Location / / Volume Laterality Blood specimen 11/30/2019 8:30 PM 020 9:40 (specimen) EDT PM EDT Comment: L HAND Resulting Agency Comment Spec In Lab Gretchen Yoon MD MICROBIOLOGY - BLOOD ORDERAB LES Performing Organization Address City/[facility]/ZIP [place] [address] Blood culture (11/30/2019 8:30 PM EDT) Patholo gist Method Time Signature Blood Culture No growth MELINA [place] at 5 days. [facility] Specimen Anatomical Collection Method Collection Time Receive d Time (Source) Location / / Volume Laterality Blood specimen 11/30/2019 8:30 PM 020 9:40 (specimen) EDT PM EDT Comment: R HAND Resulting Agency Comment Spec In Lab Gretchen Yoon MD MICROBIOLOGY - BLOOD ORDERAB LES Performing Organization Address [facility] [place] [address] XR Chest One View (11/30/2019 [...] contact e number below. ? Narrative 11/30/2019 8:32 PM EDT EXAMINATION: XR [...] Time Signature pH Art 7.45 7.35 - [facility] 7.45 [facility] LABORATORY pCO2 Art 27 (L) 35 - 45 [facility] mmHg [facility] LABORATORY pO2 Art 68 (L) 85 - 104 [facility] LABORATORY HCO3 Art 18.2 (L) 20.0 - [facility] 26.0 [facility] mmol/[facility] LABORATORY BE Art -5.9 (L) -3.0 - 3.0 [facility] mmol/L [facility] LABORATORY Hgb Blood Gas 12.4 (L) 13.7 - [facility] 16.5 gm/dL [facility] O2HB Art 93.1 (L) 94.0 - [facility] 97.0 % [facility] LABORATORY COHB Art 0.8 % [facility] LABORATORY Comment: Nonsmokers: 0.5-1.5% COHB Smokers: Variable, but usually less than 10% Toxic: 20-30% COHB Lethal: Greater than 60% COHB METHB Art 0.4 <=1.5 % [facility] LABORATORY Na Whole Blood 133 (L) 135 - 145 mmol/L [facility] K Whole Blood 3.6 3.5 - 5.0 mmol/L [facility] Comment: Please note: Patients with WBC >100,000 may have falsely elevated Potassium levels. Contact the Clinical Chemistry L aboratory if there are any questions. ICa Whole Blood 1.13 (L) 1.15 - 1.33 mmol/L [facility] LABORATORY Comment: Note: ??Total bilirubin higher than 20 m g/dL may lead to falsely low ionized calcium. CL Whole Blood 108 (H) 98 - 107 mmol/L [facility]OR[facility] Gluc Whole Bld 121 65 - 199 mg/dL [facility] LABORATORY Comment: Diabetes: >=200 mg/dL plus symp toms. Lactate WB 1.2 0.5 - 2.2 mmol/L [facility] LABORAT[facility] Flow Art 5.0 LPM [facility] LABORATORY Specimen Anatomical Collection Method Collection Time Receive d Time (Source) Location / / Volume Laterality Blood specimen 11/30/2019 8:09 PM 020 8:09 (specimen) EDT PM EDT Gretchen Yoon MD CHEMISTRY ORDERABLES Performing Organization Address City/State/[place] [address] Angiogram [place] [facility] [place] (11/30/2019 4:36 PM EDT) Anatomical [...] CT HEAD WO CONTRAST (GENERIC), CT ANGIOGRAM [place] CLINICAL HISTORY: Headache, intracranial hemorrhage suspected F/U on known ICH - assessing for propaga tion TECHNIQUE: CT head performed without intravenous co ntrast administration. CT angiogram [place] 65 cc Omnipaque 350 administered [...] HEAD WO CONTRAST (GENERI C), CT ANGIOGRAM [place] CLINICAL HISTORY: Headache, intracranial hemorrhage suspected F/U on known ICH - assessing for propaga tion TECHNIQUE: CT head performed without intravenous co ntrast administration. CT angiogram [place] 65 cc Omnipaque 350 administered [...] CT HEAD WO CONTRAST (GENERIC), CT ANGIOGRAM [place] CLINICAL HISTORY: Headache, intracranial hemorrhage suspected F/U on known ICH - assessing for propaga tion TECHNIQUE: CT head performed without intravenous co ntrast administration. CT angiogram [place] 65 cc Omnipaque 350 administered [...] HEAD WO CONTRAST (GENERI C), CT ANGIOGRAM [place] OF [place] CLINICAL HISTORY: Headache, intracranial hemorrhage suspected F/U on known ICH - assessing for propaga tion TECHNIQUE: CT head performed without intravenous co ntrast administration. CT angiogram [place] 65 cc Omnipaque 350 administered [...] Electronically signed by: Angel Luis Barboza MD, [facility] ([phone]), at 11/30/2019 5:04 PM Gretchen Yoon MD [...] 453 ms MUSE SYSTEM (Bezet) Calculated P [place] 52 degrees MUSE SYSTEM Calculated R [place] 5 degrees MUSE SYSTEM Calculated T [place] -60 degrees MUSE SYSTEM INTERPRETATION Sinus rhythm [...] PM EDT Procedure: ?Transthoracic Echocardiogram Patient: ?RITA HEIN Nilo ? (Age): 1945(74y) Med Rec#: ? [id number] ?Sex: ?M ? [place] [facility] [place]Ht / Wt: ??178(cm)/64(kg) Pt. Loc: ?[facility] ? BSA: ?1.8 Study Date: ?? 11/30/2019 ?Pt. Type: Inpatient Tape: ? Referring: GILMER Reading: Tello Mejia ([id number]) [employer] Service Supervisor: Friend, Lolita Diagnosis: *ST elevation (STEMI) myocardial [...] Vmax ?0.58 ? m/sec ? MV deceleration vxyp562.05 ? m sec ? MV A-wave Vmax [...] ? Mid-Inferior ?Akinetic ? Mid-Inferoseptal ?Normal ? [place]-Septal ? Normal ? [place]-Anterior ? Normal ? [place]-Lateral ?Normal ? [place]-Inferior ? Hypokinetic ? [place]-Tip ?Normal ? This report has been electronically sign ed by: _ Tello eMjia MD ? 11/30/2019 12: 45:27 Images reviewed and interpretation [facility] Cardiac Ultrasound Laboratory Procedure Note Tello Mejia MD - 11/30/2019Formatti ng of this note might be different from the original. Procedure: Transthoracic Echocardiogram Patient: RITA ACOSTA(Age): [birth year](74y) Med Rec#: [id number] Sex: M [place] [facility] Ht / Wt: 178(cm)/64(kg) Pt. Loc: [facility] BSA: 1.8 Study Date: 11/30/2019 Pt. Type: Inpatie nt Tape: Referring: VANGIEJ Reading: Tello Mejia ([id number]) [employer] Room Service Supervisor: Eve Lolita Diagnosis: *ST elevation (STEMI) myocardial infarc [...] MV E-wave Vmax 0.58 m/sec MV deceleration qrny125.05 msec MV A-wave Vmax 0.74 m/sec MV [...] Hypokinetic Mid-Posterolateral Hypokinetic Mid-Inferior Akinetic Mid-Inferoseptal Normal [place]-Septal Normal [place]-Anterior Normal [place]-Lateral Normal [place]-Inferior Hypokinetic [place]-Tip Normal This report has been electronically sign ed by: _ Tello Mejia MD 11/30/2019 12:45:27 Images reviewed and interpretation verif d [facility] Cardiac Ultrasound Laboratory Gretchen Yoon MD ECHO [...] Electronically signed by: Angel Luis Barboza MD, [facility] ([phone]), at 11/30/2019 12:04 PM Narrative 11/30/2019 12:04 [...] ORDERABLES Magnesium (11/30/2019 8:30 AM EDT) athologist [facility] Magnesium 0.88 0.69 - 1.07 [facility] mmol/L [facility] Specimen Anatomical Collection Method Collection Time Receive d Time (Source) Location / / Volume Laterality Blood specimen Venous Draw / 11/30/2019 8:30 AM 2019 8:37 (specimen) Unknown EDT AM EDT Resulting Agency Comment Spec In Lab Rossy Winn MD CHEMISTRY ORDERABLES Performing Organization Address City/State/ZIP [place] [address] (ABNORMAL) CK (11/30/2019 8:30 AM EDT) athologist [facility] CK, Total 1,645 (H) 0 - 200 [facility] Specimen Anatomical Collection Method Collection Time Receive d Time (Source) Location / / Volume Laterality Blood specimen 11/30/2019 8:30 AM 020 8:32 (specimen) EDT AM EDT Resulting Agency Comment Spec In Lab Gretchen Yoon MD CHEMISTRY ORDERABLES Performing Organization Address City/[facility]/ZIP [facility] [place] [address] (ABNORMAL) Troponin (11/30/2019 8:30 AM EDT) athologist [facility] Troponin-T 8.04 (H) 0.00 - [place] OLIVIA 0.00 ng/mL [facility] Comment: result rechecked-rancho The 99th percentile for Troponin T is le ss than 0.01 ng/mL, any detectable cTnT concentration using this assay should be considered elevated. According to the third universal definit ion of myocardial infarction the following criteria with a clinical prese ntation consistent with acute myocardial ischemia meets the diagnosis for a myocardial infarction (HI). Detection of a rise and/or fall of [...] additional sample may be indicated. Reference: Third Marsing Definition of Myocardial Infarction. Journal of the [place] [employer] 2012;60:1581-98 Specimen Anatomical Collection Method Collection Time Receive d Time (Source) Location / / Volume Laterality Blood specimen 11/30/2019 8:30 AM 020 8:32 (specimen) EDT AM EDT Resulting Agency Comment Spec In Lab Gretchen Yoon MD CHEMISTRY ORDERABLES Performing Organization Address City/State/[place] [address] EKG 12 Lead (11/30/2019 7:57 AM EDT) Component Value Ref Range Test Analysis Performed Pathologis t Method Time At Signature Ventricular rate 64 BPM MUSE SYSTEM Atrial Rate 64 BPM MUSE SYSTEM P-R Interval 132 ms MUSE SYSTEM QRS Duration 78 ms MUSE SYSTEM Q-T Interval 420 ms MUSE SYSTEM QTC Calculated 433 ms MUSE SYSTEM (Bezet) Calculated P [place] 28 degrees MUSE SYSTEM Calculated R [place] 7 degrees MUSE SYSTEM Calculated T [place] -33 degrees MUSE SYSTEM INTERPRETATION Sinus rhythm [...] Signature Glucose 147 (H) 65 - 99 [facility] Fasting mg/dL [facility] Comment: ?Fasting* Glucose Interpretive C riteria Normal ?65-99 mg/dL Impaired Fasting glucose ?100-125 mg/dL Consistent with Diabetes Mellitus ? >or= 126 mg/dL *Fasting is defined as no caloric intake for at least 8 hours In the absence of unequivocal hypergly cemia a plasma glucose value of >or= 126 mg/dL should be repeated on a subseq u day. Diagnosis and Classification of Diabetes Mellitus, Position Statement from the [place] [employer]. ??Diabete s Care, Volume 33, Supplement 1, Jul 2009 BUN 13 10 - 20 mg/dL [facility] LABORATORY Creatinine 0.90 0.80 - 1.50 mg/dL [facility] Sodium 135 135 - 145 mmol/L [facility] Potassium 3.9 3.5 - 5.0 mmol/L [facility] Comment: Please note: ??Patients with WBC >100,00 0 may have falsely elevated Potassium levels. ??For accurate Potassium quantif ication in these patients send serum separator tube (gold top) for subsequent determinations. ??Contact the Clinical Chemistry Laboratory if there are any qu estions. Chloride 108 (H) 98 - 107 mmol/L [facility] CO2 16 (L) 22 - 31 mmol/L [facility] Anion Gap 11 5 - 15 mmol/L [facility] Calcium 7.5 (L) 8.5 - 10.5 mg/dL [facility] Estimated GFR 84 >=60 mL/min/1.73 m?? [facility] Comment: The eGFR was calculated using the CKD-EP I equation. As with all creatinine based estimates of kidney function, eGFR values calculated with the CKD-EPI equation are not accurate in patients wi th acute kidney failure, extremes of body mass or the acutely ill. [email or web address]/[facility] eGFR 98 >=60 mL/min/1.73 m?? [facility] Comment: The eGFR was calculated using the CKD-EP I equation. As with all creatinine based estimates of kidney function, eGFR values calculated with the CKD-EPI equation are not accurate in patients wi th acute kidney failure, extremes of body mass or the acutely ill. [email or web address]/[facility]f Specimen Anatomical Collection Method Collection Time Receive d Time (Source) Location / / Volume Laterality Blood specimen 11/30/2019 2:15 AM 020 2:29 (specimen) EDT AM EDT Resulting Agency Comment Spec In Lab Gretchen Yoon MD CHEMISTRY ORDERABLES Performing Organization Address City/State/ZIP Code Phon e Number [place] [id number] HOS[address] LAB[address]ORY Drive (ABNORMAL) Hemogram (11/30/2019 2:15 AM EDT) Analysis Performed At Patho logist Time Signature WBC 11.2 (H) 4.0 - 9.5 [facility] x10(3)/[facility] LABORATORY RBC 3.83 (L) 4.58 - [facility] 5.54 [facility] x10(6)/[facility] LABORATORY Hemoglobin 11.4 (L) 13.7 - [facility] 16.5 gm/dL [facility] Hematocrit 35.2 (L) 40.5 - [facility] 48[facility] % [facility] MCV 91.9 82.9 - [facility] 93.1 fL [facility] MCH 29.8 27.5 - [facility] 32.1 [place] [facility] LAB[facility]ATORY MCHC 32.4 32.0 - MELINA WHITTENCOCK 35.7 gm/dL [facility] LABORATORY Platelets 122 (L) 145 - 357 MELINA MARSHOLIVIA x10(3)/[facility] LABORATORY RDWSD 49.8 (H) 36.0 - MELINA WHITTENCOCK 45.0 [facility] LABORATORY RDWCV 14.8 (H) 11.4 - MELINA OLIVIA 13.8 % [facility] LABORATORY MPV 12.1 7.6 - 12.9 MELINA MONAE [facility] LABORATORY nRBC % Auto 0.0 % [facility] LABORATORY nRBC Abs Auto 0.000 0.000 - MELINA MARSHOLIVIA 0.000 [facility] x10(3)/[facility] LABORATORY Specimen Anatomical Collection Method Collection Time Receive d Time (Source) Location / / Volume Laterality Blood specimen 11/30/2019 2:15 AM 020 2:29 (specimen) EDT AM EDT Resulting Agency Comment Spec In Lab Gretchen Yoon MD HEMATOLOGY ORDERABLES Performing Organization Address City/[facility]/ZIP Code Phon e Number [address] (ABNORMAL) CK (11/30/2019 2:15 AM EDT) [facility] CK, Total 1,969 (H) 0 - [facility] LABORATORY Specimen Anatomical Collection Method Collection Time Receive d Time (Source) Location / / Volume Laterality Blood specimen 11/30/2019 2:15 AM 020 2:29 (specimen) EDT AM EDT Resulting Agency Comment Spec In Lab Gretchen Yoon MD CHEMISTRY ORDERABLES Performing Organization Address City/State/ZIP [place] [address] (ABNORMAL) Troponin (11/30/2019 2:15 AM EDT) [facility] Troponin-T 11.73 (H) 0.00 - MELINA WHITTENCOCK 0.00 ng/mL [facility] LABORATORY Comment: result rechecked-slw The 99th percentile for Troponin T is le ss than 0.01 ng/mL, any detectable cTnT concentration using this assay should be considered elevated. According to the third universal definit ion of myocardial infarction the following criteria with a clinical prese ntation consistent with acute myocardial ischemia meets the diagnosis for a myocardial infarction (HI). Detection of a rise and/or fall of [...] additional sample may be indicated. Reference: Third Marsing Definition of Myocardial Infarction. Journal of the [place] [employer] 2012;60:1581-98 result rechecked- The 99th percentile for Troponin T is le ss than 0.01 ng/mL, any detectable cTnT concentration using this assay should be considered elevated. According to the third universal definit ion of myocardial infarction the following criteria with a clinical prese ntation consistent with acute myocardial ischemia meets the diagnosis for a myocardial infarction (HI). Detection of a rise and/or fall of [...] additional sample may be indicated. Reference: Third Marsing Definition of Myocardial Infarction. Journal of the [place] [employer] 2012;60:1581-98 Corrected from 11.73 ng/ml [HI] on 11/29 3:11:51 EDT by Debi Hawley Specimen Anatomical Collection Method Collection Time Receive d Time (Source) Location / / Volume Laterality Blood specimen 11/30/2019 2:15 AM 020 2:29 (specimen) EDT AM EDT Resulting Agency Comment Spec In Lab Gretchen Yoon MD CHEMISTRY ORDERABLES Performing Organization Address City/[facility]/ZIP Code Phon e Number [address] LDL Cholesterol, Direct (11/30/2019 2:15 AM EDT) P athologist Signature LDL Chol 156 mg/dL [facility] LABORATORY Comment: Lowest Risk: <100 mg/dL Lower Risk: 100-129 mg/dL Borderline High Risk: 130-159 mg/dL High Risk: 160-189 mg/dL Very High Risk: >gt=400 mg/dL Specimen Anatomical Collection Method Collection Time Receive d Time (Source) Location / / Volume Laterality Blood specimen 11/30/2019 2:15 AM 020 2:29 (specimen) EDT AM EDT Resulting Agency Comment Spec In Lab Gretchen Yoon MD CHEMISTRY ORDERABLES Performing Organization Address City/[facility]/ZIP Code Phon e Number [address] (ABNORMAL) Hemoglobin A1c (11/30/2019 2:15 AM EDT) Analysis Performed At Patho logist Time Signature Hemoglobin A1C 6.3 (H) 4.3 - 5.6 [facility] LABORATORY Comment: Reference Range: 4.3 - [...] Mellitus, Diabetes Care 2013; 36: Suppl. 1, H53-23 Est Avg Gluc See note mg/dL [facility] LABORATORY Comment: Estimated Average Glucose not [...] with hemoglobinopathies. Additional resources are available on [facility] ADA website. Kiko CARBAJAL, Jenn J, Silas R, et al. ??Tr anslating the A1C assay into estimated average glucose values. ??Diabetes Care 2008:31(8):5707-2163. Specimen Anatomical Collection Method Collection Time Receive d Time (Source) Location / / Volume Laterality Blood specimen 11/30/2019 2:15 AM 020 2:29 (specimen) EDT AM EDT Resulting Agency Comment Spec In Lab Gretchen Yoon MD CHEMISTRY ORDERABLES Performing Organization Address City/State/[place] [address] Lipid Panel (Reflex Direct LDL) (11/30/2019 2:15 AM EDT) athologist Signature Chol, Total 195 mg/dL [facility] LABORATORY Comment: Lower Risk: <200 mg/dL Average Risk: 200-239 mg/dL Higher Risk: >mt=608 mg/dL Triglycerides 93 mg/dL [facility] LABORATORY Comment: Average Risk/Lower Risk: <150 mg/dL Borderline High Risk: 150-199 mg/dL High Risk: 200-499 mg/dL Very High Risk: >qt=431 mg/dL HDL 32 mg/dL [facility] LABORATORY Comment: Males: ?? Higher Risk: <40 mg/dL Females: ?? HIgher Risk: <50 mg/dL LDL Cholesterol 144 mg/dL [facility] LABORATORY Comment: Lowest Risk: <100 mg/dL Lower Risk: 100-129 mg/dL Borderline High Risk: 130-159 mg/dL High Risk: 160-189 mg/dL Very High Risk: >by=362 mg/dL Chol/HDL Ratio 6.1 ratio [facility] LABORATORY Lipid Interpretation See Note [facility] LABORATORY Comment: Lipid management should be guided by a p atient? s ASCVD risk, goals and preferences. ACC/AHA Guidelines recommend high intens ity statin if clinical ASCVD or LDL greater than or equal to 190 mg/dL. http://[employer]/NZI-QVT-Psxcgtgvw Adults aged 40-75 with LDL 70-189 mg/dL should have their 10 year ASCVD risk estimated with the ACC/AHA ASCVD risk es timator http://tools.acc.org/YWYON-Uoun-Oofwsrsk r/ Statin should be discussed if risk [...] Organization Address City/State/[place] [address] (ABNORMAL) CK (11/29/2019 6:35 PM EDT) athologist Signature CK, Total 2,780 (H) 0 - 200 [facility] unit/L [facility] LABORATORY Specimen Anatomical Collection Method Collection Time Receive d Time (Source) Location / / Volume Laterality Blood specimen 11/29/2019 6:35 PM 020 6:53 (specimen) EDT PM EDT Resulting Agency Comment Spec In Lab Gretchen Yoon MD CHEMISTRY ORDERABLES Performing Organization Address City/State/[place] [address] (ABNORMAL) Troponin (11/29/2019 6:35 PM EDT) athologist Signature Troponin-T 17.60 (H) 0.00 - [facility] 0.00 ng/mL [facility] LABORATORY Comment: result rechecked-az The 99th percentile for Troponin T is le ss than 0.01 ng/mL, any detectable cTnT concentration using this assay should be considered elevated. According to the third universal definit ion of myocardial infarction the following criteria with a clinical prese ntation consistent with acute myocardial ischemia meets the diagnosis for a myocardial infarction (HI). Detection of a rise and/or fall of [...] additional sample may be indicated. Reference: Third Marsing Definition of Myocardial Infarction. Journal of the [place] College [employer]iology 2012;60:1581-98 Specimen Anatomical Collection Method Collection Time Receive d Time (Source) Location / / Volume Laterality Blood specimen 11/29/2019 6:35 PM 020 6:53 (specimen) EDT PM EDT Resulting Agency Comment Spec In Lab Gretchen Yoon MD CHEMISTRY ORDERABLES Performing Organization Address City/State/[place] [address] EKG 12 Lead (11/29/2019 3:58 PM EDT) [facility] gist Method Time Signature Ventricular rate 73 BPM MUSE SYSTEM Atrial Rate 73 BPM MUSE SYSTEM P-R Interval 152 ms MUSE SYSTEM QRS Duration 84 ms MUSE SYSTEM Q-T Interval 404 ms MUSE SYSTEM QTC Calculated 445 ms MUSE SYSTEM (Bezet) Calculated P [place] 50 degrees MUSE SYSTEM Calculated R [place] -4 degrees MUSE SYSTEM Calculated T [place] 19 degrees MUSE SYSTEM INTERPRETATION Sinus rhythm [...] report, please contact e number below. ? --------ORIGINAL REPORT -------- EXAMINATION: XR CHEST ONE VIEW CLINICAL HISTORY: stemi (as entered by o [facility] provider in the order requisition) TECHNIQUE: Portable [...] lung apex is excluded from the imaged [id number]. IMPRESSION: 1. ??New right internal jugular pulmonar [...] report, please contact e number below. ? Impressions 11/29/2019 4:36 PM EDT 1. ??New [...] please contact e number below. ? Narrative 11/29/2019 4:36 PM EDT EXAMINATION: XR [...] lung apex is excluded from the imaged [id number]. Procedure Note Estefani Harris MD - 11/29/2019Formattin [...] lung apex is excluded from the imaged [id number]. IMPRESSION 1. New right internal jugular pulmonary [...] (ABNORMAL) Differential, Automated (11/29/2019 2:32 PM EDT) [facility] Method Time Signature Neutrophils % 83.8 % [facility] LABORATORY Neutr Abs (ANC) 12.12 (H) 1.70 - [facility] 6.10 [facility] x10(3)/[facility] LABORATORY Lymphocytes % 9.1 % [facility] LABORATORY Lymphocytes Abs 1.3 0.9 - 3.2 [facility] x10(3)/[facility] LABORATORY Monocytes % 6.2 % [facility] LABORATORY Monocyte Abs 0.9 0.3 - 0.9 [facility] x10(3)/[facility] LABORATORY Eosinophils % 0.0 % [facility] LABORATORY Eosinophils Abs 0.0 0.0 - 0.4 [facility] x10(3)/[facility] LABORATORY Basophils % 0.3 % [facility] LABORATORY Basophils Abs 0.0 0.0 - 0.1 [facility] x10(3)/[facility] LABORATORY Immature Gran % 0.60 % [facility] LABORATORY Comment: Immature granulocytes(IG's)percentage an d absolute count will include metamyelocytes, myelocytes, and promyelo cytes. Blood smears from CBCs yielding IG's will be scanned manually for concor dance. If this scan disagrees with the automated IG or if promyelocytes are not ed, a manual differential will be performed. Pita Gran Abs 0.08 (H) 0.00 - 0.04 x10(3)/[facility] LABORATORY Specimen Anatomical Collection Method Collection Time Receive d Time (Source) Location / / Volume Laterality Blood specimen 11/29/2019 2:32 PM 020 2:55 (specimen) EDT PM EDT Resulting Agency Comment Spec In Lab Darrell Glasgow MD HEMATOLOGY ORDERABLES Performing Organization Address City/State/[place] [address] (ABNORMAL) Hemogram (11/29/2019 2:32 PM EDT) Analysis Performed At Patho logist Time Signature WBC 14.5 (H) 4.0 - 9.5 [facility] x10(3)/[facility] LABORATORY RBC 4.53 (L) 4.58 - [facility] 5.54 [facility] x10(6)/[facility] LABORATORY Hemoglobin 13.1 (L) 13.7 - [facility] 16.5 gm/dL [facility] LABORATORY Hematocrit 40.8 40.5 - [facility] 48.5 % [facility] LABORATORY MCV 90.1 82.9 - [facility] 93.1 [facility] LABORATORY MCH 28.9 27.5 - [facility] 32.1 pg [facility] LABORATORY MCHC 32.1 32.0 - [facility] 35.7 gm/dL [facility] LABORATORY Platelets 184 145 - 357 [facility] x10(3)/[facility] LABORATORY RDWSD 47.8 (H) 36.0 - [facility] OLIVIA 45.0 [facility] LABORATORY RDWCV 14.5 (H) 11.4 - [facility] OLIVIA 13.8 % [facility] LABORATORY MPV 11.9 7.6 - 12.9 [facility] nRBC % Auto 0.0 % [facility] LABORATORY nRBC Abs Auto 0.000 0.000 - MELINA OLIVIA 0.000 [facility] x10(3)/[facility] LABORATORY Specimen Anatomical Collection Method Collection Time Receive d Time (Source) Location / / Volume Laterality Blood specimen 11/29/2019 2:32 PM 020 2:55 (specimen) EDT PM EDT Resulting Agency Comment Spec In Lab Darrell Glasgow MD HEMATOLOGY ORDERABLES Performing Organization Address City/State/ZIP Code Phon e Number [address] (ABNORMAL) CK (11/29/2019 2:32 PM EDT) athologist Signature CK, Total 3,282 (H) 0 - 200 [facility] unit/L [facility] LABORATORY Specimen Anatomical Collection Method Collection Time Receive d Time (Source) Location / / Volume Laterality Blood specimen 11/29/2019 2:32 PM 020 2:32 (specimen) EDT PM EDT Resulting Agency Comment Spec In Lab Gretchen Yoon MD CHEMISTRY ORDERABLES Performing Organization Address City/[facility] [place] [address] (ABNORMAL) Troponin (11/29/2019 2:32 PM EDT) athologist Signature Troponin-T 20.33 (H) 0.00 - MELINA OLIVIA 0.00 ng/mL [facility] LABORATORY Comment: The 99th percentile for Troponin T is le ss than 0.01 ng/mL, any detectable cTnT concentration using this assay should be considered elevated. According to the third universal definit ion of myocardial infarction the following criteria with a clinical prese ntation consistent with acute myocardial ischemia meets the diagnosis for a myocardial infarction (HI). Detection of a rise and/or fall of [...] additional sample may be indicated. Reference: Third Marsing Definition of Myocardial Infarction. Journal of the [place] College [employer]iology 2012;60:1581-98 Specimen Anatomical Collection Method Collection Time Receive d Time (Source) Location / / Volume Laterality Blood specimen 11/29/2019 2:32 PM 020 2:32 (specimen) EDT PM EDT Resulting Agency Comment Spec In Lab Gretchen Yoon MD CHEMISTRY ORDERABLES Performing Organization Address [facility] [place] [address] (ABNORMAL) APTT (11/29/2019 2:32 PM EDT) P athologist Signature PTT 114 25 - 37 [facility] (Critical) [facility] LABORATORY Comment: Critical Result called by ?? [...] Yoon MD HEMATOLOGY ORDERABLES Performing Organization Address [facility] [place] [address] (ABNORMAL) Prothrombin Time (11/29/2019 2:32 PM EDT) P athologist Signature PT 13.5 (H) 9.4 - 12.5 [facility] LABORATORY INR 1.2 [facility] LABORATORY Comment: An INR <2.0 indicates adequate [...] Organization Address City/State/ZIP [place] [address] (ABNORMAL) Hepatic Function Panel (11/29/2019 2:32 PM EDT) P athologist Signature Total Protein 6.3 6.1 - 8.0 [facility] gm/dL [facility] LABORATORY Albumin 3.6 3.2 - 5.2 [facility] gm/dL [facility] LABORATORY AST 257 (H) 0 - 39 [facility] unit/L [facility] LABORATORY ALT 50 0 - 55 [facility]/L [facility] LABORATORY Alk Phos 84 40 - 130 [facility]/L [facility] LABORATORY Total 0.3 0.2 - 1.3 [facility] Bilirubin mg/dL [facility] LABORATORY Bili, Direct 0.1 0.0 - 0.3 [facility] OLIVIA mg/dL [facility] LABORATORY Specimen Anatomical Collection Method Collection Time Receive d Time (Source) Location / / Volume Laterality Blood specimen 11/29/2019 2:32 PM 020 2:32 (specimen) EDT PM EDT Resulting Agency Comment Spec In Lab Gretchen Yoon MD CHEMISTRY ORDERABLES Performing Organization Address City/[facility]/ZIP [place] [address] (ABNORMAL) pro-Brain Natriuretic Peptide (11/29/2019 2:32 PM EDT) P athologist Signature ProBNP 272 (H) <=125 pg/mL [facility] LABORATORY Specimen Anatomical Collection Method Collection Time Receive d Time (Source) Location / / Volume Laterality Blood specimen 11/29/2019 2:32 PM 020 2:32 (specimen) EDT PM EDT Resulting Agency Comment Spec In Lab Gretchen Yoon MD CHEMISTRY ORDERABLES Performing Organization Address City/[facility]/ZIP Code Phon e Number MELINA OLIV[address] Magnesium (11/29/2019 2:32 PM EDT) athologist Signature Magnesium 0.76 0.69 - 1.07 [facility] mmol/L [facility] LABORATORY Specimen Anatomical Collection Method Collection Time Receive d Time (Source) Location / / Volume Laterality Blood specimen 11/29/2019 2:32 PM 020 2:32 (specimen) EDT PM EDT Resulting Agency Comment Spec In Lab Gretchen Yoon MD CHEMISTRY ORDERABLES Performing Organization Address City/State/ZIP Code Phon e Number [address] (ABNORMAL) Basic Metabolic Panel (non-fasting) (11/29/2019 2:32 PM EDT) athologist Signature Glucose Lvl 149 65 - 199 [facility] mg/dL [facility] LABORATORY Comment: Diabetes: >=200 mg/dL plus symp toms BUN 16 10 - 20 mg/dL [facility] LABORATORY Creatinine 0.94 0.80 - 1.50 mg/dL [facility] LABORATORY Sodium 135 135 - 145 mmol/L [facility] LABORATORY Potassium 4.5 3.5 - 5.0 mmol/L [facility] LABORATORY Comment: Please note: ??Patients with WBC >100,00 0 may have falsely elevated Potassium levels. ??For accurate Potassium quantif ication in these patients send serum separator tube (gold top) for subsequent determinations. ??Contact the Clinical Chemistry Laboratory if there are any qu estions. Chloride 105 98 - 107 mmol/L [facility] LABORATORY CO2 15 (L) 22 - 31 mmol/L [facility] LABORATORY Anion Gap 15 5 - 15 mmol/L [facility] LABORATORY Calcium 8.0 (L) 8.5 - 10.5 mg/dL [facility] LABORATORY Estimated GFR 80 >=60 mL/min/1.73 m?? [facility] LABORATORY Comment: The eGFR was calculated using the CKD-EP I equation. As with all creatinine based estimates of kidney function, eGFR values calculated with the CKD-EPI equation are not accurate in patients wi th acute kidney failure, extremes of body mass or the acutely ill. http://[employer]/[facility] CLINTONnkf eGFR 93 >=60 mL/min/1.73 m?? [facility] LABORATORY Comment: The eGFR was calculated using the CKD-EP I equation. As with all creatinine based estimates of kidney function, eGFR values calculated with the CKD-EPI equation are not accurate in patients wi th acute kidney failure, extremes of body mass or the acutely ill. http://[employer]/[facility] CLINTONnkf Specimen Anatomical Collection Method Collection Time Receive d Time (Source) Location / / Volume Laterality Blood specimen 11/29/2019 2:32 PM 020 2:32 (specimen) EDT PM EDT Resulting Agency Comment Spec In Lab Gretchen Yoon MD CHEMISTRY ORDERABLES Performing Organization Address City/[facility] [place] [address] EKG 12 Lead (11/29/2019 11:38 AM EDT) [facility] gist Method Time Signature Ventricular rate 60 BPM MUSE SYSTEM Atrial Rate 60 BPM MUSE SYSTEM P-R Interval 140 ms MUSE SYSTEM QRS Duration 86 ms MUSE SYSTEM Q-T Interval 474 ms MUSE SYSTEM QTC Calculated 474 ms MUSE SYSTEM (Bezet) Calculated P [place] 48 degrees MUSE SYSTEM Calculated R [place] 14 degrees MUSE SYSTEM Calculated T [place] 58 degrees MUSE SYSTEM INTERPRETATION Normal sinus [...] Yoon MD ECG ORDERABLES Performing Organization Address City/[facility] Phon e Number MUSE SYSTEM CARDIAC CATHETERIZATION (11/29/2019 11:15 AM EDT) Anatomical Region Laterality Modality Other Specimen (Source) Anatomical Location Collection Method / Collectio n Time Received Time / Laterality Volume Narrative 11/30/2019 1:09 PM EDT ?[facility] ? Cardiac Cathete rization/Intervention Report ? Patient Name: Salinas, Angel Luis H. ? Procedure Date: 11/29/2019 ? A #: [id number] ? Primary Physician: Shaan, Gretchen N ? Case #: [id number] ? File Name: [id number] ? Catheterization Order Number: [id number] ? [facility] ? Final Report [place] ? Patient Name: ? Angel Luis Salinas ? ID#: ?[id number] ? : ?1945 ? Procedure Date: ? [...] procedure was Emergent. The indication for ?the general laborer visit is ACS less than or equal [...] therapy for an acute ?myocardial infarction. The prio rity for the procedure was Emergent. The ?NCDR [...] dose administered prior to arrival in the general laborer. ?Recommended anti-platelet/anti- thrombotic regimen: ?Continue aspirin 81 mg daily fo r indefinitely. ?Continue clopidogrel 75 mg marco a y for 12 months then stop. ?These recommendations are made at the time of the intervention. Patient ?and provider preferences or a c hanging clinical situation may require ?modification of this regimen. C marvult [facility] Interventional Cardiology for ?questions. ? Conclusions: ?* [...] Yoon M.D. ? Electronically Signed by: Gretchen lockett M.D. ? Report Finalized: 11/30/2019 ??13:04 ? Report Last Ammended: 01/01/2020 ??16:32 ? Procedure Note Gretchen Yoon MD - 01/01/2020Formatt ing of this note might be different from the original. [facility] Cardiac Catheterization/Intervention Re port Patient Name: SalinasAngel Luis Procedure Date: 11/29/2019 A #: [id number] Primary Physician: Gretchen Yoon Case #: [id number] File Name: [id number] Catheterization Order Number: [id number] [facility] Final Report [place], [place] Patient Name: Angel Luis Salinas ID#: [id number] : 1945 Procedure Date: November 29, 2019 Case #: [id number] Room: 5 Case Physician: Gretchen oYon M.D. art: 09:11 Fellow: Aidan Ward M.D. [...] was designated as ASA Class IV. The [facility] clinical frailty scale is 4: Vulnerable. Diagnostic Tests: Electrocardiography: EKG was assessed by ECG. EKG was Abnorm al. EKG showed ST Deviation >= 0.5 mm. Medications Prior to Procedure: Aspirin. Indications for Diagnostic Cath: The priority of the diagnostic procedur e was Emergent. The indication for the general laborer visit is ACS less than or equal [...] priority for the procedure was Emergent. [facility] the procedure was S GAETANO [...] this intervention was 10%. The final TI HI flow was 2. Distal 90% Thrombectomy and [...] this intervention was 10%. The final TI HI flow was 2. Vascular Access: Vascular Access [...] administered prior t o arrival in the general laborer. Recommended anti-platelet/anti-thrombot ic regimen: Continue aspirin 81 mg daily for indefi nitely. Continue clopidogrel 75 mg daily for 12 months then stop. These recommendations are made at the t loyda of the intervention. Patient and provider preferences or a changing clinical situation may require modification of this regimen. Consult [facility] for questions. Conclusions: * Two [...] Signature POC pH 7.33 (L) 7.35 - [facility] 7.45 [facility] POC PCO2 33 (L) 35 - 45 [facility] mmHg [facility] POC PO2 56 (L) 85 - 104 [facility] LABORATORY POC Base Excess -8.0 (L) -3.0 - 3.0 [facility] K mmol/L [facility] POC HCO3 17.4 (L) 20.0 - [facility] 26.0 [facility] mmol/[facility] POC Sodium 137 135 - 145 [facility] mmol/L [facility] POC Potassium 3.6 3.5 - 5.0 [facility] mmol/L [facility] POC Ionized Ca 1.15 1.15 - [facility] 1.33 [facility] Hematocrit 37.0 (L) 40.0 - [facility] 51.0 % [facility] POC Calc Hgb 12.6 (L) 13.7 - [facility] 17.5 gm/dL [facility] Comment: The calculation of hemoglobin f rom hematocrit assumes a normal MCHC. POC Bgas Loc CC LAB [facility] Specimen Anatomical Collection Method Collection Time Receive d Time (Source) Location / / Volume Laterality Blood specimen 11/29/2019 9:17 AM 020 7:35 (specimen) EDT AM EDT Gretchen Yoon MD CHEMISTRY ORDERABLES Performing Organization Address City/State/[place] [address] EKG 12 Lead (11/29/2019 9:01 AM EDT) Component Value Ref Range Test Analysis Performed Pathologis t Method Time At Signature Ventricular rate 80 BPM MUSE SYSTEM Atrial Rate 79 BPM MUSE SYSTEM QRS Duration 94 ms MUSE SYSTEM Q-T Interval 436 ms MUSE SYSTEM QTC Calculated 502 ms MUSE SYSTEM (Bezet) Calculated R [place] 54 degrees MUSE SYSTEM Calculated T [place] 80 degrees MUSE SYSTEM INTERPRETATION Normal sinus rhythm MUSE SYSTEM Inferior infarct , possibly acute Prolonged QT * ACUTE HI ?? Consider right ventricular involvement in acute inferior inf arct Abnormal ECG No previous ECGs available Confirmed by MD Yoon Michael ([id number]) on 11/29/2019 5:12:30 PM Specimen Anatomical Collection Method Collection Time Receive d Time (Source) Location / / Volume Laterality 11/29/2019 9:01 AM 0 5:12 EDT PM EDT Gretchen Yoon MD ECG ORDERABLES Performing Organization Address City/State/ZIP Code Phon e Number MUSE SYSTEM documented in this encounter Visit Diagnoses Not on filedocumented in this encounter Admitting Diagnoses Diagnosis STEMI [...] PRN, Starting on 11/29/19 at 1306, Until Sun12/08/19 at 1811, Pain, Headaches, Maximum dose of acetaminophen is 4000 mg from all sources in 24 hours., Routine Given 11/30/2019 8:15 AM EDT 650 mg AMIOdarone (Cordarone; Pacerone) tablet 400 Given 01/2020 [...] Given 12/06/2019 9:55 AM EDT 81 mg atropine injection Given 11/29/2019 10:59 AM EDT 0.5 mg ONCE PRN, Starting on 11/29/19 at 1059, Until 11/29/19 at 1328, Cath (Intra-Procedure), Routine cholecalciferol (Vitamin D3) (Vitamin Given 12/08/2019 [...] Given 12/06/2019 9:55 AM EDT 75 mg diphenhydrAMINE (BENADRYL) injection 50 mg 50 mg, Intravenous, EVERY 2 HOURS PRN, S tarting on 12/01/19 at 1348, Until 12/08/19 at 1811, Itching, hives and itchi ng, Notify service if given. May give up to 400 mg per day, Routine eptifibatide (INTEGRILIN) 0.75 New Bag 11/29/2019 10:28 AM 1 m cg/kg/min 4.8 mL/hr mg/mL infusion EDT CONTINUOUS PRN, Starting on 11/29/19 at 1028, Until 11/29/19 at 1303, Cath (Intra-Procedure) eptifibatide (INTEGRILIN) injection Given 11/29/2019 10:37 AM EDT 10,800 mcg ONCE PRN, Starting on 11/29/19 at 1027, Until 11/29/19 at 1303, Cath (Intra-Procedure), Routine Given 11/29/2019 10:27 AM EDT 10,800 mcg ezetimibe (Zetia) tablet 10 mg Given 12/08/2019 10:42 AM EDT 10 mg 10 mg, Oral, DAILY, First dose on 12/01/19 at 1000, Until Discontinued, Routine Given 12/07/2019 8:24 AM EDT 10 mg Given 12/06/2019 9:54 AM EDT 10 mg fentaNYL 50 mcg/mL multi-dose injection Given 11/29/2019 9:58 AM EDT 12.5 mcg ONCE PRN, Starting on 11/29/19 at 0906, Until 11/29/19 at 1303, Intra-Operative (Intra-Procedure), Routine Given 11/29/2019 9:28 AM EDT 25 mcg Given 11/29/2019 9:06 AM EDT 12.5 mcg furosemide (Lasix) tablet 20 mg 20 mg, Oral, EVERY OTHER DAY, First dose (after last modification) on Sun12/09/19 at 0900, Until Discontinued, Routine heparin (porcine) 1,000 unit/mL Given 11/29/2019 10:28 AM EDT 2, 000 Units injection ONCE PRN, Starting on 11/29/19 at 0918, Until 11/29/19 at 1303, Cath (Intra-Procedure), Routine Given 11/29/2019 9:18 AM EDT 3,000 Units iohexoL (OMNIPAQUE) 350 mg/mL solution Given 11/29/2019 11:14 AM EDT 181 mLs ONCE PRN, Starting on 11/29/19 at 1114, Until 11/29/19 at 1328, Cath (Intra-Procedure), Routine lisinopriL (Prinivil;Zestril) tablet 2.5 mg Given 12/08/2019 9:27 AM EDT 2.5 mg 2.5 mg, Oral, DAILY, First dose (after last modification) on Sun12/08/19 at 0930, Until Discontinued, Routine melatonin tablet 3 mg Given 12/07/2019 8:52 PM EDT 3 mg 3 mg, Oral, NIGHTLY, First dose on Sun11/30/19 at 2215, Until Discontinued, Routine Given 12/06/2019 8:05 PM EDT 3 mg Given 12/05/2019 8:08 PM EDT 3 mg metoprolol (LOPRESSOR) injection 5 mg Given 12/07/2019 12:41 PM EDT 5 mg 5 mg, Intravenous, EVERY 5 MIN PRN, 3 doses, Starting on Sun12/07/19 at 1236, Until Sun12/08/19 at 1811, Elevated Heart Rate, for HR >140, Kelly MARC if SBP < 80 metoprolol succinate XL (Toprol-XL) tablet Given 12/08/2019 9:26 AM EDT 12.5 mg 12.5 mg 12.5 mg, Oral, DAILY, First dose on 12/08/19 at 0930, Until Discontinued, DO NOT CRUSH OR OPEN, Routine midazolam (PF) (VERSED) multi-dose injec tion Given 11/29/2019 9:06 AM EDT 0.5 mg ONCE PRN, Starting on 11/29/19 at 0906, Until 11/29/19 at 1303, Cath (Intra-Procedure), Routine niCARdipine (CARDENE) in sodium chloride Given 11/29/2019 10:25 AM EDT 300 mcg 0.9% injection ONCE PRN, Starting on 11/29/19 at 1006, Until 11/29/19 at 1303, Intra-Operative (Intra-Procedure), Routine Given 11/29/2019 10:13 AM EDT 300 mcg Given 11/29/2019 10:06 AM EDT 200 mcg nicotine (NICODERM CQ) 14 Given 12/08/2019 9:25 AM EDT 14 mg 09- Arm Upper (Left) mg/24 hr patch 14 mg 14 mg (1 patch), Transdermal, DAILY, First dose on 11/30/19 at 1615, Until Discontinued, Routine Given 12/07/2019 9:25 AM EDT 14 mg 10- A rm Upper (Right) Given 12/06/2019 9:54 AM EDT 14 mg 09- A rm Upper (Left) nicotine (NICODERM CQ) 14 mg/24 hr patch Patch Removal Transdermal, DAILY, First dose on 12/01/19 at 1600, Until Discontinued, Remove nicotine 14 [...] PRN, Starting on 11/29/19 at 1125, Until 12/08/19 at 1811, Chest pain, May repeat every 5 minutes for a total of three doses. Notify provider if chest pain not relieved with nitroglycerin. Do not administer nitroglycerin if the patient has received or taken phosphodiesterase (PDE-5) inhibitors such as sildenafil, tadalafil or vardenafil within the last 24 to 72 hours., Recovery (Recovery-Hospital Unit), Routine nitroGLYcerin 100 mcg/mL intracoronary Given 11/29/2019 9:12 AM EDT 150 mcg dilution ONCE PRN, Starting on 11/29/19 at 0912, Until 11/29/19 at 1303, Cath (Intra-Procedure), Routine NORepinephrine 16 mcg/mL Rate/Dose Change 11/29/2019 1:01 15 mcg/min 56.3 mL/hr (standard ADULT and Pedi PM EDT greater than 20 kg) infusion CONTINUOUS PRN, Starting on 11/29/19 at 1102, Until 11/29/19 at 1328, Cath (Intra-Procedure), Routine New Bag 11/29/2019 11:02 AM EDT 5 mcg/min 18.8 mL/hr polyethylene glycoL (Miralax) packet 17 g 17 g, Oral, DAILY PRN, Starting on Sun at 0615, Until 12/08/19 at 1811, Constipation, Routine potassium chloride ER (K-Dur/Klor-Con) tablet Given 1:54 PM EDT 20 mEq 20 mEq 20 mEq, Oral, EVERY 4 HOURS PRN, Starting on 11/30/19 at 2017, Until 12/08/19 at 181, hypokalemia, Administer for serum potassium (mMol/L) of 3.9 - 4 See instructions for Potassium Protocol in online policies., Routine Given 12/08/2019 2:30 AM EDT 20 mEq Given 12/07/2019 4:45 PM EDT 20 mEq potassium chloride ER (K-Dur/Klor-Con) tablet Given 6:30 AM EDT 40 mEq 40 mEq 40 mEq, Oral, EVERY 4 HOURS PRN, Starting on Sun11/30/19 at 2016, Until 12/08/19 at 1811, hypokalemia, Administer for serum potassium (mMol/L) of 3.6 - 3.8 See instructions for Potassium Protocol in online policies., Routine Given 12/03/2019 3:11 PM EDT 40 mEq Given 11/30/2019 8:44 PM EDT 40 mEq sodium chloride 0.9 % (flush) flush 5 mL Given 12/08/2019 9:28 AM EDT 5 mLs 5 mL, Intravenous, 2 TIMES DAILY, First dose on 11/29/19 at 1330, Until Discontinued, Routine Given 12/05/2019 9:00 PM EDT 5 mLs Given 12/05/2019 10:15 AM EDT 5 mLs sodium chloride 0.9% infusion New Bag 11/29/2019 11:14 AM EDT 1.5 L CONTINUOUS PRN, Starting on 11/29/19 at 1114, Until 11/29/19 at 1328, Cath (Intra-Procedure) verapamiL (ISOPTIN) injection Given 11/29/2019 9:12 AM EDT 2.5 mg ONCE PRN, Starting on 11/29/19 at 0912, Until 11/29/19 at 1303, Administer over 2 Minutes, Cath (Intra-Procedure) documented in this encounter Active and Recently [...] Oral, 2 TIMES DAILY, First dose on 12/08/19 at 1230, Until Discontinued, Routine apixaban (Eliquis) tablet 5 mg 0 925 (Given - Provider: Amaya Anderson, NIURKA) 5 mg, Oral, 2 TIMES DAILY, First dose on 12/08/19 at 0930, Until Discontinued, Anticoagulant, Routine aspirin chewable tablet 81 mg 0955 (Given - Provider: Amaya contreras RN) 0824 (Given - Provider: Amaya Anderson, NIURKA) 0925 (Given - Provider: Amaya Anderson, NIURKA) 81 mg, Oral, DAILY, First dose on 12/01/19 at 1645, Until Discontinued, Routine cholecalciferol (Vitamin D3) (Vitamin D3) tablet 1,000 Units 0954 (Given - Provider: Amaya Anderson RN) 0824 (Given - Provider: Amaya Anderson RN) 09 (Given - Provider: Amaya Anderson RN) 1,000 [...] OPEN, STAT ezetimibe (Zetia) tablet 10 mg 09 (Given - Provider: Amaya noel RN) 08 [...] ONCE, 1 dose, 12/06/19 at 0515, Ad straw hat presser over 120 Minutes magnesium sulfate 2 g [...] 12.5 mg, Oral, DAILY, First dose on Sun12/08/19 at 0930, Until Discontinued, DO NOT CRUSH [...] patch), Transdermal, DAILY, Fir st dose on Sun11/30/19 at 1615, Until Discontinued, Routine nicotine (NICODERM [...] (CANCELED) 1322 (New Bag - Provider: Nereyda Rice)1654 (New Bag - Provider: Amaya Anderson RN)1922 (Rate/Dose Change - Provider: Amaya Anderson RN) 0506 (New Bag - Provider: Russell Ventura RN)1228 (Stopped - Provider: Amaya Anderson RN) 1 [...] RN) 0704 (Rate/Dose Verify - Provider: Amaya Anderson RN)1123 (New Bag - Provider: Amaya Anderson RN)1220 (Rate/Dose Verify - Provider: Amaya Anderson RN) 0921 (Stopped - Provider: Amaya Anderson RN) [...] 013 4 (New Bag - Provider: Mukesh Bentley, NIURKA)0239 (Stopped - Provider: Mukesh Bentley, NIURKA) 250 mL/hr, at 250 mL/hr, Intravenous, CO [...] PRN, S tarting 12/01/19 at 1348, Until 12/08/19 at 1811, Itching, hives and itching, Notify service if given. May give up to 400 mg per day, Routine heparin (porcine) injection 0-8,000 Units (CANCELED) 2 336 (Given - Provider: Mukesh Bentley RN) 0-8,000 Units, Intravenous, BOLUS [facility] PROTOCOL, Starting 12/06/19 at 0926, Until 12/08/19 at 0901, Per Protocol, START ADJUSTMENT SCHEDULE 6 HOURS AFTER STARTING INFUSION Heparin UFH Lev el between 0.1 - 0.29 IU/mL: Bolus 2,250 units Heparin UFH Level less than 0.1 IU/mL: Bolus 4,500 units, Routine lidocaine (XYLOCAINE) 10 mg/mL (1 %) injection 3 mg 3 mg (0.3 mL), Subcutaneous, ONCE PRN, 1 dose, Starting 11/29/19 at 1303, Until 12/08/19 at 1811, for discomfort with PIV insertion, Routine metoprolol (LOPRESSOR) injection 5 mg 1241 (Give n - Provider: Amaya Anderson RN) 5 mg, Intravenous, EVERY 5 MIN PRN, 3 do ses, Starting 12/07/19 at 1236, Until 12/08/19 at 1811, Elevated Heart Rate, for HR >140, Kelly MARC if SBP < 80 nitroGLYcerin (Nitrostat) disintegrating tablet 0.4 mg 0.4 mg, Sublingual, EVERY 5 MIN PRN, Sta rting 11/29/19 at 1125, Until 12/08/19 at 1811, Chest pain, May repeat every [...] g 17 g, Oral, DAILY PRN, Starting Sun at 0615, Until Sun12/08/19 at 1811, Constipation, Routine potassium chloride ER (K-Dur/Klor-Con) tablet 20 mEq(Linked Group 2) 0630 (See Alternative - Provider: Mukesh Bentley RN)1645 (Given - Provider: Amaya Anderson RN) 0230 (Given - Provider: Russell Ventura RN)1354 (Given - Provider: Amaya Anderson RN) 20 mEq, Oral, EVERY 4 HOURS PRN, Startin g 11/30/19 at 2017, Until Sun12/08/19 at 1811, hypokalemia, [...] PRN, Startin g 11/30/19 at 2017, Until Sun12/08/19 at 181, hypokalemia, Administer for serum potassium (mMol/L) of 3.6 - 3.8 See instructions for Potassium Protocol in online policies., Routine sodium chloride 0.9 % (flush) flush 5-20 mL 5-20 mL, Intravenous, EVERY 1 MIN PRN, S tarting 11/29/19 at 1303, Until Sun12/08/19 at 1811, flush, Flush pertains to all [...] Oral, EVERY 4 HOURS PRN, Startin g [place] 11/30/19 at 2016, Until Sun12/08/19 at 1811, hypokalemia
Administer for serum potassium (mMol/L) of 3.9 - 4 See instructions for Potassium Protocol in online policies.
Routine Or potassium chloride ER (K-Dur/Klor-Con) tablet 40 mEqJump to med 40 mEq, Oral, EVERY 4 HOURS PRN, Startin g [place] 11/30/19 at 2016, Until Sun12/08/19 at 181, hypokalemia
Administer for serum potassium (mMol/L) of 3.6 - 3.8 See instructions for Potassium Protocol in online policies.
Routine documented in this encounter Care Teams Contract Attorney Relationship Specialty Start Date End Date France Lam MD PCP - General 05/02/13 02/04/20 [address] [place] [address] documented as of this encounter
--- OUTSIDE RECORDS SUMMARY | 2022-03-16 11:04 | XMS_ITS | Encounter Summary ---
:1945 [place] [address] Care Team Providers Name Role Phone France Lam MD Primary Care Provider Encounter Details Date Type Department Care Team Description 11/29/2019 Telephone Cardiovascular [facility] Silvio piedra MD [facility] Devin coh[place] [address] [place] [address] [phone] (Wo rk) Social History Tobacco Use Types Packs/Day Years Used Date Current Every Day Smoker Cigars 0.5 Sex Assigned at Date Recorded Not on file documented as of this encounter Miscellaneous Notes Telephone Encounter - Silvio Real MD - 11/29/2019 6:59 AM EDT Telephone Triage Note Initial contact date: 11/29/2019 Initial contact time: 6:59 AM CC: STEMI History Mr. Hi is a 74 year old with no significant medical history, smoking who woke up at 4:00 AM withchest pain. Took 2 aspirin. BP in the 90s->100s. Still has chest pressure. Heparin, ASA, clopidogrel, TNK and accepted for transfer as a STEMI alert. Pertinent diagnostic findings: Vitals: SBP 110s, HR 50s EKG: Inferior STEMI Silvio Real MD Cap [employer] Stud Machine Operator PGY-4 11/29/2019 documented in this encounter Plan of Treatment Not on filedocumented as of this encounter Visit Diagnoses Not on filedocumented in this encounter Care Teams Automobile Appraiser Relationship Specialty Start Date End Date France Lam MD PCP - General 05/02/13 02/04/20 [address] [place] [address] documented as of this encounter
--- OUTSIDE RECORDS SUMMARY | 2022-03-16 11:04 | XMS_ITS | Encounter Summary ---
:1945 Author Organization [facility] [place] [address] Care Team Providers Name Role Phone France Lam MD Primary Care Provider Encounter Details Date Type Department Care Team Description 05/13/2013 Orders Only Vascular Surgery at [facility] P[facility] (xi luis [facility] vascular technologist sonographer disease) [facility] (Primary Dx) [place] [address] Social History Tobacco Use Types Packs/Day Years Used Date Current Every Day Smoker Cigars 0.5 Sex Assigned at Date Recorded Not on file documented as of this encounter Miscellaneous Notes Addendum Note - Anabella Sanchez RN - 05/13/2013 2:38 PM EST Addended by: ANABELLA SANCHEZ on: 05/13/2013 02:38 PM Modules accepted: Orders documented in this encounter Plan of Treatment Not on filedocumented as of this encounter Visit Diagnoses Diagnosis PVD (peripheral vascular disease) - Prim kayy Peripheral vascular disease, unspecified documented in this encounter Care Teams Box Finisher Relationship Specialty Start Date End Date France Lam MD PCP - General 05/02/13 02/04/20 [address] [place] [address] documented as of this encounter
--- OUTSIDE RECORDS SUMMARY | 2022-03-16 11:04 | XMS_ITS | Encounter Summary ---
:1945 Author Organization [facility] [place] [address] Care Team Providers Name Role Phone France Lam MD Primary Care Provider Encounter Details Date Type Department Care Team Description 05/13/2013 Ancillary Vascular Surgery at [facility] (Primary Appointment [facility] Cesilia Sebastian, [place] Dx) [place] [id number] Social History Tobacco Use Types Packs/Day Years Used Date Current Every Day Smoker Cigars 0.5 Sex Assigned at Date Recorded Not on file documented as of this encounter Plan of Treatment Not on filedocumented as of this encounter Procedures Procedure Name Priority Date/Time Associated Diagnosis Comme nts IGNACIO, LEGS, MULTIPLE Routine 05/13/2013 8:34 AM Calf pain Re sults for this LEVELS EST procedure are i n the results section. documented in this encounter Results IGNACIO, legs, multiple levels (05/13/2013 8:34 AM EST) Component Value Ref Test Analysis Performed At [facility] gist Range Method Time Signature VB Text VASCUBASE Report Department: Vascular Surgery Lab Patient: [id number] (ANGEL LUIS HI) CPT Code: 55198 ICD-9: 440.21 Referring Physician: FRANCE LAM Indication: ??LEFT lower extremity martha ication with intermittent rest pain, ? PAD Diabetes mellitus: ?? No ICD9 Diagnosis Code: 440.21 IGNACIO = Ankle / Brachial Systolic Pressure Index, TBI = Toe / Brachial Systolic Pressure Index Findings: Right ?Pressure (mm Hg) ?? IGNACIO ??Waveform ? Brachial Artery ?132 ? Common Femoral Artery ?Triphasic ? Pop Fossa ?Biphasic-Rev ?? Dorsalis Pedis (Ankle) Arter y ?125 ? 0.95 ??Triphasic ? Posterior Tibial (Ankle) Art derrell ??120 ? 0.91 ??Triphasic ? Left ? Pressure (mm Hg) ?? IGNACIO ??Waveform ? Brachial Artery ?128 ? Common Femoral Artery ?Triphasic ? Pop Fossa ?Biphasic ? Dorsalis Pedis (Ankle) Arter y ?13 ?0.10 ??Aphasic ? Posterior Tibial (Ankle) Art derrell ??84 ?0.64 ??Guthrie- Biphasic ?? Interpretation: RIGHT: ??Mild lower extremity arterial occlusive disease. LEFT: Moderate to severe lower extremity arteria l occlusive disease. Abnormal monophasic Doppler waveforms noted in the popliteal artery suggestive of a more proximal (femoral-popliteal) stenosis. Aphasic Doppler waveforms and low flow (7 cm/s) noted in the dorsalis pedis artery. Comparison: ??No previous study in our vascular lab da tabase for comparison. Electronically Signed by: ALLAN GARCIA on 2013-05-13 10:1 1:25 AM VB Text End of Report VASCUBASE Report Specimen (Source) Anatomical Collection Method Collection Time Re ceived Time Location / / Volume Laterality 05/13/2013 8:34 AM EST France Lam MD VASCULAR ORDERABLES Performing Organization Address City/State/ZIP Code Phon e Number [facility] documented in this encounter Visit Diagnoses Diagnosis Calf pain - Primary Pain in limb documented in this encounter Care Teams Cant Gang Sawyer Relationship Specialty Start Date End Date France Lam MD PCP - General 05/02/13 02/04/20 [address] [place] [address] documented as of this encounter
--- OUTSIDE RECORDS SUMMARY | 2022-03-16 11:04 | XMS_ITS | Encounter Summary ---
:1945 Author Organization [facility] [place] [address] Care Team Providers Name Role Phone France Lam MD Primary Care Provider Encounter Details Date Type Department Care Team Description 11/29/2019 External Results [place] [phone] Social History Tobacco Use Types Packs/Day Years Used Date Current Every Day Smoker Cigars 0.5 Sex Assigned at Date Recorded Not on file documented as of this encounter Plan of Treatment Not on filedocumented as of this encounter Procedures Procedure Name Priority Date/Time Associated Diagnosis Comme nts ECG SCAN Routine 11/29/2019 Results for thi s procedure are in the resu lts section. ECG SCAN Routine 11/29/2019 Results for thi s procedure are in the resu lts section. ECG SCAN Routine 11/29/2019 Results for thi s procedure are in the resu lts section. ECG SCAN Routine 11/29/2019 Results for thi s procedure are in the resu lts section. documented in this encounter Results Scan Doc: ECG (11/29/2019) Narrative This result has an attachment that is no t available. Historical Provider MEDIA MGR SCAN EXT ORDR/RSLT Scan Doc: ECG (11/29/2019) Narrative This result has an attachment that is no t available. Historical Provider MEDIA MGR SCAN EXT ORDR/RSLT Scan Doc: ECG (11/29/2019) Narrative This result has an attachment that is no t available. Historical Provider MEDIA MGR SCAN EXT ORDR/RSLT Scan Doc: ECG (11/29/2019) Narrative This result has an attachment that is no t available. Historical Provider MEDIA MGR SCAN EXT ORDR/RSLT documented in this encounter Visit Diagnoses Not on filedocumented in this encounter Care Teams Election Watcher Relationship Specialty Start Date End Date France Lam MD PCP - General 05/02/13 02/04/20 [address] [place] [address] documented as of this encounter
--- OUTSIDE RECORDS SUMMARY | 2022-03-16 11:05 | XMS_ITS | Encounter Summary ---
:1945 Author Organization [facility] Address [address] [place] [address] Care Team Providers Name Role Phone France Lam MD Primary Care Provider Reason for Visit Reason Comments Claudication Encounter Details Date Type Department Care Team Description 05/13/2013 Office Visit Vascular Surgery at David Sim from [facility] MD Bobby peripheral vascular [facility] dis ease, left ([address]) [place], [place] VASCULAR SURGERY [address] [place] [address] [phone] Social History Tobacco Use Types Packs/Day Years Used Date Current Every Day Smoker Cigars 0.5 Sex Assigned at Date Recorded Not on file documented as of this encounter Last Filed Vital Signs Vital Sign Reading Time Taken Comments Blood Pressure 118/70 05/13/2013 9:31 AM right arm, 11 0 62 left EST arm Pulse 72 05/13/2013 9:31 AM EST Temperature - - Respiratory Rate - - Oxygen Saturation - - Inhaled Oxygen - - Concentration Weight 59.4 kg (131 lb) 05/13/2013 9:31 AM EST Height 175.3 cm (5' 9) 05/13/2013 9:31 AM EST Body Mass Index 19.35 05/13/2013 9:31 AM EST documented in this encounter Progress Notes David Sim MD - 05/13/2013 10:09 AM EST Jovany Hi Is a 68-year-old nondiabetic man who is seen in consultation for Dr. Lam To evaluate left calf claudication. This began last spring after in in active winter. He now has a 100 yard claudication which he finds frustrating although not disabling. He likes to go for long walks and findsthat he is now limited to mostly in-house activity. He does not have rest pain or symptoms in his right leg. He has been extremely healthy , but he is a lifelong smoker , and now has decreased to approximately 1/2 pack per day of small cigars. His also smokes. He has no history of coronary artery disease or stroke. He has never had surgery. He has not been hospitalized for over 30 years. He has tried multiple statins because of hypercholesterolemia, but has had significant side effects of all for him.He is now on niacin. His LDL cholesterol is over 200. On examination he is thin. He indicates that he lost 25 pounds several years ago but has been stablesince then , and has good strength. I do not hear carotid bruits. His aorta is pulsatile but does not appear aneurysmal. Femoral pulses are strong bilaterally. The right popliteal and pedal pulses are palpable while the left are absent. He has no skin trophic changes. He has normal hair distribution on his toes. IGNACIO is 0.95 on the right and 0.64 on the left. during this 40 minute visit, 30 minutes were spent in direct patient counseling, including the critical importance of smoking cessation. I discussed specific methods to stop smoking, and I provided him with a packet of information about smoking cessation. I also described potential treatment options for his claudication including potential interventional treatment. I believe it is leaning toward this but I urged him to take some time to think about this and also to commit to smoking cessation before undergoing an interventional procedure. She will contact my office if he would like to schedule an outpatient arteriogram and possible balloon angioplasty or stenting. I explained that I passed surgery might be required depending on the severity of the blockage, and that we would make that decision after performing the arteriogram. documented in this encounter Plan of Treatment Not on filedocumented as of this encounter Visit Diagnoses Diagnosis Claudication from peripheral vascular di sease, left - Primary Peripheral vascular disease, unspecified documented in this encounter Care Teams Rental Manager Relationship Specialty Start Date End Date France Lam MD PCP - General 05/02/13 02/04/20 [address] [place] [address] documented as of this encounter
[2022-03-21 11:02] VITALS: BP 108/68; PULSE 67
--- OUTSIDE RECORDS SUMMARY | 2022-03-21 11:03 | XMS_ITS | Encounter Summary ---
:1945 Author Organization [facility] Address [address] [place] [address] Care Team Providers Name Role Phone Jennifer Gomez ROLL MACHINE OPERATOR Primary Care Provider Encounter Details Date Type Department Care Team Description 09/07/2020 Lab Requisition [facility] Outr Resulting Lab, Pathology & Laboratory Provider [facility] [address], [place] [address] Social History Tobacco Use Types Packs/Day Years Used Date Never Assessed Sex Assigned at Date Recorded Not on file documented as of this encounter Plan of Treatment Not on filedocumented as of this encounter Procedures Procedure Name Priority Date/Time Associated Diagnosis Comme nts COVID-19 TEST [facility] Today 09/07/2020 9:45 EST LAB PCR COVID-19 TESTING Routine 09/07/2020 9:45 EST Resu lts for this procedure are i n the results section. documented in this encounter Results COVID-19 TEST [facility] LAB PCR (09/07/2020 9:45 EST) Specimen Swab - Entire nasopharynx (body structur e) Performing Organization Address City/State/ZIP Code Phon e Number [facility] [address] [place] [address] SERVICES COVID-19 TESTING (09/07/2020 9:45 EST) COVID-19 rt-PCR Negative Negative [facility] Result Comment: CENTER LABORATORY This test has not been FDA c leared or approved. This test has been authorized by FDA under an EUA for use by authorized laboratories. This test has been authorized only for detection of nucleic acid fro SERVICES m 2019-nCoV, not for any oth er viruses or pathogens. This test is only authorized for the duration of the declaration that circumstances exist justifying the authorization of emergency use of in vitro d iagnostic tests for detectio n and/or diagnosis of 2019-nCoV under section 564(b)(1) of Act, 21 U.S.C ?? 360bbb-3(b) (1), unless the authorization is terminated or revoked sooner. Negative results do not prec lude 2019-nCoV infection and should not be used as the sole basis for treatment or other patient management decisions. Negative results must be combined with clinical observa tions, patient history, and epidemiological informatio n. This test was developed and its performance characteristics determined by [facility]. It has not been cleared or approved [...] defined by the FDA Performed on the [employer] 7 Pro RT-PCR System. Performing Lab [facility] Lab [facility] SERVICES Specimen Swab Performing Organization Address City/State/ZIP Code Phon e Number [facility] [address] [place] [address] SERVICES documented in this encounter Visit Diagnoses Not on filedocumented in this encounter Care Teams Chief Customer Officer Relationship Specialty Start Date End Date Jennifer Gomez NP PCP - General 05/10/15 [facility] [address] [place], [place] [address] documented as of this encounter
--- OUTSIDE RECORDS SUMMARY | 2022-03-21 11:03 | XMS_ITS | Clinical Summary ---
:1945 Author Organization [facility] [place] [address] Care Team Providers Name Role Phone Jovany Lott MD Primary Care Provider Allergies Active Allergy Reactions Severity Noted Date Comments Penicillins 05/13/2013 Pt doesn't gely mber reaction Ipxoita-Dfb-Dtv Reductase 05/13/2013 St iff neck, upset stomach, [...] ar e in STUDY the results section. LAB SCAN 03/10/2022 12:00 AM Results for this EDT procedure are i n the results section. from Last 3 Months Results SCAN DOC: LAB (03/10/2022 12:00 AM EDT) Narrative 03/10/2022 12:00 AM EDT This result has an attachment that is no t available. Ordered by an unspecified provider. Scanning Provider MEDIA MGR SCAN EXT ORDR/RSLT Film Library- Storage Only Ultrasound Study (03/10/2022 12:00 AM EDT) Specimen (Source) Anatomical Location Collection Method / Collectio n Time Received Time / Laterality Volume Narrative [facility] - 03/11/2022 2:40 AM EDT This exam is auto-finalizing. It's purpo se is for storage only. Jovany Lott MD IMG FILM LIBRARY ORDERABLES Performing Organization Address City/State/ZIP Code Phon e Number [facility] [place], [place] from Last 3 Months Insurance Payer Benefit Plan / Subscriber ID Effective Dates Phone Addre ss Type Group MEDICARE MEDICARE PART [id number] 2019-Prese [phone] [place] [address] [place] [id number] 2018-Presen [employer] [place] [id number] Advance Directives Latest Code Status on File [...] capacity to make decision: Yes Care Teams Air Traffic Control Supervisor Relationship Specialty Start Date End Date Jovany Lott MD PCP - General Family Medicine 02/05/20 [address] [place] [phone]
--- OUTSIDE RECORDS SUMMARY | 2022-03-21 11:03 | XMS_ITS | Encounter Summary ---
:1945 Author Organization [facility] [place] [address] Care Team Providers Name Role Phone Jovany Lott MD Primary Care Provider Encounter Details Date Type Department Care Team Description 11/10/2020 Telephone [facility] [place] [address] Social History Tobacco Use Types Packs/Day [...] on filedocumented in this encounter Care Teams Circus Train Supervisor Relationship Specialty Start Date End Date Jovany Lott MD PCP - General Family Medicine 02/05/20 [place] [phone] documented as of this encounter
--- OUTSIDE RECORDS SUMMARY | 2022-03-21 11:03 | XMS_ITS | Encounter Summary ---
:1945 Author Organization [facility] Address [address] [place] [address] Care Team Providers Name Role Phone Jennifer Gomez JOINERY SETTER OUT Primary Care Provider Encounter Details Date Type Department Care Team Description 08/26/2021 Lab Requisition [facility] Najma Valladares for other Pathology & M, DO general examination Laboratory Medicine - [address] [facility] [address] [place] [phone] Social History Tobacco Use Types Packs/Day Years [...] 8:45 EST) Note to Patient The following [facility] pathology results have CENTER been interpreted by your LABORATORY pathologist and may be SERVICES available to you before your health provider has had the opportunity to review them. Please allow time for your provider to receive these results and explore management options, if applicable. Final Diagnosis A. RECTUM, POLYP, BIOPSY : [facility] - Polypoid submucosal anal glands. CENTER - Overlying rectal mucosa negative for dysplasia. LABORATORY - See comment. SERVICES Diagnosis Comment This rectal polyp shows a cantor bmucosal collection of anal duct glands causing a polypoid configuration. The morphology and the immunohistochemical profile are consistent with a benign (non-neoplastic) pro [facility] cess. Release Specialist slides of this case were reviewed at the gastrointestinal/liver intradepartmental consultation conference. CENTER LABORATORY ANTIBODY(CLONE)(BLOCK):RESULT SERVICES CK7 (RN7, Leica) (A1): Strongly positive PAX-8 (MRQ-50, [place]) (A1): Negative NKX3.1 (Rabbit Polyclonal, [employer]) (A1): Negative GATA3 (L50-823, [place]) (A1): Negative NOTE: One or more of [...] characteristics have been de termined by [facility] and/or by the referring laboratory. The [...] laboratory testing. Attestation By the signature below, [facility] Elec tronically the attending physician CENTER sign ed by Odalis, certifies that they have LABORATORY Tami MD edna on 1) personally conducted SERVICES 2021 at 1309 a gross and/or microscopic examination of the described specimen(s), and/or personally interpreted the results of laboratory testing of the described specimen(s), and 2) personally rendered or confirmed the above diagnosis. Clinical History Flex sigmoidoscopy; [facility] diverticulosis, polyp CENTER LABORATORY SERVICES Gross Description A. [facility] Received in formalin mark d with proper patient identification (initials M, J) and rectal polyp is a marr-brown polyp, 0.6 x 0.5 x 0.4 cm. Bisected and entirely submitted in A1. [facility]ENTER LABORATORY ESTEFANY NICHOLS(ASCP) 08/26/2021 16:41 SE RVICES Performing Lab [facility] SERVICES Scanned Images [facility] SERVICES Specimen Tissue - Specimen from rectum (specimen) Performing Organization Address City/State/ZIP Code Phon e Number [facility] [address] [place] [address] SERVICES documented in this encounter Visit Diagnoses Diagnosis Encounter for other general examination documented in this encounter Care Teams Merchandising Lead Relationship Specialty Start Date End Date Jennifer Gomez NP PCP - General 05/10/15 [facility] [address] [place] [phone] documented as of this encounter
--- OUTSIDE RECORDS SUMMARY | 2022-03-21 11:03 | XMS_ITS | Encounter Summary ---
:1945 Author Organization [facility] Address [address] [place] [address] Care Team Providers Name Role Phone Jovany Lott MD Primary Care Provider Encounter Details Date Type Department Care Team Description 10/08/2020 Telephone Cardiology at [facility] Faustino Garduno MD [facility] [place] [address] [place] [address] [phone] (Wo rk) Social History Tobacco Use Types Packs/Day Years Used Date Former Smoker Cigars 0.5 Quit: 11/29/19 20 Smokeless Tobacco: Former User Sex Assigned at Date Recorded Not on file documented as of this encounter Miscellaneous Notes Telephone Encounter - Faustino Garduno MD - 10/08/2020 10:22 AM EDT Telephone Care Note: I called and left a message for Mr. Hi. I was able to previously connect with Dr. Chou, his provider via the [place] (see my prior clinic note). His case was reviewed by our Watchman (left atrial appendage closure team). He has anatomy that would be conducive to closure, should he wish to pursue this for stroke prevention and ability to be off anticoagulation assisted. Left message for callback to our Structural Program (contact Willow Callejas APRN). If he is interested, I would be happy to offerscheduling for him. Faustino Garduno MD Pager [phone] documented in this encounter Plan of Treatment Not on filedocumented as of this encounter Visit Diagnoses Not on filedocumented in this encounter Care Teams Bread Stacker Relationship Specialty Start Date End Date Jovany Lott MD PCP - General Family Medicine 02/05/20 [address] [place] [address] documented as of this encounter
--- OUTSIDE RECORDS SUMMARY | 2022-03-21 11:03 | XMS_ITS | Encounter Summary ---
:1945 Author Organization [facility] Address [address] [place] [address] Care Team Providers Name Role Phone Jennifer Gomez SALVAGE LABORER Primary Care Provider Encounter Details Date Type Department Care Team Description 01/25/2022 Lab Requisition [facility] Outr Resulting Lab, Pathology & Laboratory Provider [facility] [address] [place], [place] [address] Social History Tobacco Use Types Packs/Day Years [...] Pathologist Sig nature Salmonella PCR Negative Negative [facility]ORATORY SERVICES Shigella/Enteroinvasive Negative Negative [facility]. [facility] SERVICES HN LAB CAMPYLOBACTER PCR Negative Negative [facility] ER LABORATORY SERVICES Shiga Toxin PCR Negative Negative [facility] LABORATORY SERVICES Specimen Feces - Specimen from rectum (specimen) Performing Organization Address City/State/ZIP Code Phon e Number [facility] [address] [place] [address] SERVICES documented in this encounter Visit Diagnoses Not on filedocumented in this encounter Care Teams Strategy Planning Consultant Relationship Specialty Start Date End Date Jennifer Gomez, SALVAGE LABORER PCP - General 05/10/15 [facility] [address] [place], [place] [phone] documented as of this encounter
--- OUTSIDE RECORDS SUMMARY | 2022-03-21 11:03 | XMS_ITS | Encounter Summary ---
:1945 Author Organization [facility] [place] [address] Care Team Providers Name Role Phone Jovany Lott MD Primary Care Provider Reason for Visit Consultation (Routine) - Closed Specialty Diagnoses / Procedures Referred By Contact Refer red To Contact Cardiology Diagnoses ST elevation (STEMI) myocardial infarction of unspecified site Hyperlipidemia, unspecified PeriDawit muhammda MD [place] [address] [place] [address] [address] [place] C[facility] D EPT [address] [place] [address] Fax: Referral ID Status Reason Start Date Expiration Date Visits V isits Requested Authorized [id number] Closed Consult, Test 02/10/2020 02/09/2021 [facility] PCP Updated and/or Approved Encounter Details Date Type Department Care Team Description 03/12/2020 TH Visit Cardiology at [facility] Melina Payan Fredrickson type IIa hyperli poproteinemia; (TeleHealth) [facility] Hyperglycemia; [facility] Elevated TSH; [facility] Hypothyroidism, acquired [id number] CARDIOLOGY DEPT [phone] [place], [place] [address] Social History Tobacco Use Types Packs/Day Years Used Date Former Smoker Cigars 0.5 Quit: 11/29/19 20 Smokeless Tobacco: Former User Comments: Quit chew tobacco years and y ears ago Sex Assigned at Date Recorded Not on file documented as of this encounter Progress Notes Melina Payan MD - 03/12/2020 1:00 PM EDT [facility] Lip[facility]--Initial Consultation [...] Social History: 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 They [...] medications for this visit. 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 He has multiple cardiovascular risk factors including peripheral artery disease, hyperlipidemia (elevated LDL, depressed HDL), a 38-gjbr-eawo history of smoking, and prediabetes. Jovany quit [...] but Jovany replied: I can't drive to [employer] every 2 weeks for that. I explained [...] hypothyroidism documented in this encounter Care Teams Powerhouse Tender Relationship Specialty Start Date End Date Jovany Lott MD PCP - General Family Medicine 02/05/20 [place] [address] documented as of this encounter
--- OUTSIDE RECORDS SUMMARY | 2022-03-21 11:03 | XMS_ITS | Encounter Summary ---
:1945 Author Organization [facility] [place] [address] Care Team Providers Name Role Phone France Lam MD Primary Care Provider Encounter Details Date Type Department Care Team Description 01/16/2020 Telephone Vascular Surgery at [facility] Ryan Tran, [place] [address] Social History Tobacco Use Types Packs/Day Years Used Date Former Smoker Cigars 0.5 Quit: 11/29/19 20 Smokeless Tobacco: Former User Comments: Quit chew tobacco years and y ears ago Sex Assigned at Date Recorded Not on file documented as of this encounter Miscellaneous Notes Telephone Encounter - Ryan Tran RN - 01/16/2020 1:58 PM EDT DATE: 01/16/2020 NAME: Jovany Hi : 1945 Reason for Call: 1-month follow-up for Tobacco Treatment Pt returned call. Reports he has been tobacco-free since his heart attack, 11/29/2019. Tobacco statusupdated. Will follow-up at the 6 month fidelina. Ryan Tran, MSN, RN-BC, NCTTP Tobacco Training Mgr [facility] Pager #[phone] documented in this encounter Plan of Treatment Not on filedocumented as of this encounter Visit Diagnoses Not on filedocumented in this encounter Care Teams Email Marketing Executive Relationship Specialty Start Date End Date France Lam MD PCP - General 05/02/13 02/04/20 [address] [place] [address] documented as of this encounter
--- OUTSIDE RECORDS SUMMARY | 2022-03-21 11:03 | XMS_ITS | Encounter Summary ---
:1945 Author Organization [facility] Address [address] [place] [address] Care Team Providers Name Role Phone Jennifer Gomez CEREAL MAKER Primary Care Provider Encounter Details Date Type Department Care Team Description 02/15/2022 Lab Requisition [facility] Outr Resulting Lab, Pathology & Laboratory Provider [facility] [address] [place], [place] [address] Social History Tobacco Use Types Packs/Day Years [...] Free 9.3 (H) 2.8 - 5.3 pg/mL [facility] SERVICES Specimen Blood - Venous blood (substance) Performing Organization Address City/State/ZIP Code Phon e Number [facility] [address] [place] [address] SERVICES documented in this encounter Visit Diagnoses Not on filedocumented in this encounter Care Teams Waistline Joiner Overlock Relationship Specialty Start Date End Date Jennifer Gomez, CEREAL MAKER PCP - General 05/10/15 [facility] [address] [place], [place] [phone] documented as of this encounter
--- OUTSIDE RECORDS SUMMARY | 2022-03-21 11:03 | XMS_ITS | Encounter Summary ---
:1945 Author Organization [facility] Address [address] [place] [address] Care Team Providers Name Role Phone Jennifer Gomez BEHAVIORAL HEALTH TECHNICIAN Primary Care Provider Encounter Details Date Type Department Care Team Description 12/22/2019 Lab Requisition [facility] Outr Resulting Lab, Pathology & Laboratory Provider [facility] [address] [place], [place] [phone] Social History Tobacco Use Types Packs/Day Years Used Date Never Assessed Sex Assigned at Date Recorded Not on file documented as of this encounter Plan of Treatment Not on filedocumented as of this encounter Procedures Procedure Name Priority Date/Time Associated Diagnosis Comme nts COVID-19 TEST [facility] Today 12/22/2019 10:38 LAB PCR EDT COVID-19 TESTING Routine 12/22/2019 10:38 Results for this EDT procedure are i n the results section. documented in this encounter Results COVID-19 TEST [facility] LAB PCR (12/22/2019 10:38 EDT) Specimen Swab - Entire nasopharynx (body structur e) Performing Organization Address City/State/ZIP Code Phon e Number [facility] [address] [place] [address] SERVICES COVID-19 TESTING (12/22/2019 10:38 EDT) COVID-19 rt-PCR Negative Negative [facility] Result Comment: CENTER LABORATORY Negative results do not prec lude 2019-nCoV infection and should not be used as the sole basis for treatment or other patient management decisions. Negative results must be combined with clinical observa SERVICES tions, patient history, and epidemiological informatio n. This test was developed and its performance characteristics determined by [facility]. It has not been cleared or approved [...] by the FDA Performed on the [employer] 7500 Fast. Performing Lab [address] [facility] Lab [facility] SERVICES Specimen Swab Performing Organization Address City/State/ZIP Code Phon e Number [facility] [address] [place] [address] SERVICES documented in this encounter Visit Diagnoses Not on filedocumented in this encounter Care Teams Mix Maker Relationship Specialty Start Date End Date Jennifer Gomez NP PCP - General 05/10/15 [facility] [address] [place], [place] [phone] documented as of this encounter
--- OUTSIDE RECORDS SUMMARY | 2022-03-21 11:03 | XMS_ITS | Encounter Summary ---
:1945 Author Organization [facility] [place] [address] Care Team Providers Name Role Phone Jovany Lott MD Primary Care Provider Reason for Visit Reason Onset Date Comments Follow-up 06/15/2020 Tobacco Treatment Encounter Details Date Type Department Care Team Description 06/15/2020 Telephone Vascular Surgery at [facility] Tran-melvin (Tobacco [facility] Sukumar, RN Treatment) [place] [address] Social History Tobacco Use Types Packs/Day [...] updated. Ryan Tran, MSN, RN-BC, NCTTP Tobacco Mill Beam Fitter [facility] [place] Pager #[phone] documented in this encounter Plan of Treatment Not on filedocumented as of this encounter Visit Diagnoses Not on filedocumented in this encounter Care Teams Felt Hat Inspector And Packer Relationship Specialty Start Date End Date Jovany Lott MD PCP - General Family Medicine 02/05/20 [place] [address] documented as of this encounter
--- OUTSIDE RECORDS SUMMARY | 2022-03-21 11:03 | XMS_ITS | Encounter Summary ---
:1945 Author Organization [facility] [place] [address] Care Team Providers Name Role Phone Jovany Lott MD Primary Care Provider Encounter Details Date Type Department Care Team Description 10/12/2020 Notes Only Cardiology at [facility] Willow Callejas, NIURKA [facility] [place] [address] Social History Tobacco Use Types Packs/Day [...] want totalk to my doctor at the [place] and do a little more research before I decide what to do, I'm a little afraid of it. He notes that he has a scheduled clinic visit in November and will discuss with Dr. Garduno at that time. documented in this encounter Plan of Treatment Not on filedocumented as of this encounter Visit Diagnoses Not on filedocumented in this encounter Care Teams Electrical Maintenance Supervisor Relationship Specialty Start Date End Date Jovany Lott MD PCP - General Family Medicine 02/05/20 [place] [id number] documented as of this encounter
--- OUTSIDE RECORDS SUMMARY | 2022-03-21 11:03 | XMS_ITS | Encounter Summary ---
:1945 Author Organization [facility] [place] [address] Care Team Providers Name Role Phone Jovany Lott MD Primary Care Provider Encounter Details Date Type Department Care Team Description 10/05/2020 Notes Only Cardiology Merlin Sanchez MD [facility] [place] [address] CARDIOLOGY DEPT. [phone] [place], [place] [address] (Wo rk) Social History Tobacco [...] BEKAH-C with WM [facility]X Merlin Sanchez MD [facility] Pager [phone] documented in this encounter Plan of Treatment Not on filedocumented as of this encounter Visit Diagnoses Not on filedocumented in this encounter Care Teams Attorney Relationship Specialty Start Date End Date Jovany Lott MD PCP - General Family Medicine 8/6/20 [address] [place] [address] documented as of this encounter
--- OUTSIDE RECORDS SUMMARY | 2022-03-21 11:03 | XMS_ITS | Encounter Summary ---
:1945 Author Organization [facility] Address [address] [place] [address] Care Team Providers Name Role Phone Jennifer Gomez PRIVACY DIRECTOR Primary Care Provider Encounter Details Date Type Department Care Team Description 03/19/2019 Hospital Encounter [facility], Provider, [facility] [phone] [place] [address] (Work) [phone] Social History Tobacco Use Types Packs/Day Years Used Date Never Assessed Sex Assigned at Date Recorded Not on file documented as of this encounter Discharge Disposition Disposition Code Departure Means Destination Home or Self [place] documented in this encounter Plan of Treatment Not on filedocumented as of this encounter Visit Diagnoses Not on filedocumented in this encounter Care Teams Spool Maker Relationship Specialty Start Date End Date Jennifer Gomez, PRIVACY DIRECTOR PCP - General 05/10/15 [facility] [address] [place], [place] [address] documented as of this encounter
--- OUTSIDE RECORDS SUMMARY | 2022-03-21 11:03 | XMS_ITS | Encounter Summary ---
:1945 Author Organization [facility] Address [address] [place] [address] Care Team Providers Name Role Phone Jennifer Gomez EDUCATION AND DEVELOPMENT MANAGER Primary Care Provider Encounter Details Date Type Department Care Team Description 03/19/2019 Results Only [facility] Angel Luis Lott MD [phone] [address] [place], [place] [phone] (Wo rk) Social History Tobacco Use Types [...] (03/19/2019 16:47 EDT) Pathology SURGICAL PATHOLOGY REPORT [facility] Report: Reports generated via electronic interface conta in original data; [facility]ENTER [facility] however they are lacking the format of the original re port. SERVICES Caution should be taken when reading/interpreting unfo rmatted reports. Name: ? ANGEL LUIS HI ? Accession #: ? [id number] ? : ? 1945 (Age: 8 3) [...] Organization Address City/State/ZIP Code Phon e Number [facility] [address] [place] [address] SERVICES documented in this encounter Visit Diagnoses Not on filedocumented in this encounter Care Teams Research Biologist Relationship Specialty Start Date End Date Jennifer Gomez NP PCP - General 05/10/15 [facility] [address] [place], [place] [id number] documented as of this encounter
--- OUTSIDE RECORDS SUMMARY | 2022-03-21 11:03 | XMS_ITS | Encounter Summary ---
:1945 Author Organization [facility] Address [address] [place] [address] Care Team Providers Name Role Phone Unavailable Primary Care Provider Unavailable Encounter Details Date Type Department Care Team Description 09/02/2003 Results Only [facility] Otis Patel MD conversion [address] [facility] [address] [place] [address] [place] [address] (Wo rk) Social History Tobacco Use Types [...] ANGEL LUIS SALINAS ? Accession #: ? [id number] ? : ? 1945 (Age: 58) ??M [...] of the lesion is recommended. ?? (Dr. Mascorro)/Bebo Microscopic Description: ? The epidermis is hype [...] and cords of similar melanocytes that show it senior analyst maturation with descent. ??There is papillary dermal fibroplasia. ??(Dr. Mascorro)/Bebo Document reviewed and electronically signed by: Mai [...] entirely submitted in one cassette. ??(Dr Stephany Amador)/[facility] End of Report Specimen Performing Organization Address City/State/ZIP Code Phon e Number [facility] [address] [place] [address] SERVICES [facility] [address] [place] [address] documented in this encounter Visit Diagnoses Not on filedocumented in this encounter
--- OUTSIDE RECORDS SUMMARY | 2022-03-21 11:04 | XMS_ITS | Encounter Summary ---
:1945 Author Organization [facility] [place] [address] Care Team Providers Name Role Phone France Lam MD Primary Care Provider Encounter Details Date Type Department Care Team Description 12/23/2019 TH Visit Neurosurgery at [facility] Alfreda Salas Intracranial (TeleHealth) [facility] C, [place] [address] Center [phone] [place] [address] Social History Tobacco Use Types Packs/Day Years Used Date Current Every Day Smoker Cigars 0.5 Sex Assigned at Date Recorded Not on file documented as of this encounter Progress Notes Alfreda Salas C, SAWMILL WORKER - 12/23/2019 1:30 PM EDT Images from [...] 2 [address] up [address] at [facility], showing slight decrease in size and [...] 3-4 weeks which may be done at [facility] with follow up TOV [facility]. Head CT 12/18/19 Assessment and Plan [...] hemorrhage documented in this encounter Care Teams Furnace Charger Relationship Specialty Start Date End Date France Lam MD PCP - General 05/02/13 02/04/20 [address] [place] [address] documented as of this encounter
--- OUTSIDE RECORDS SUMMARY | 2022-03-21 11:04 | XMS_ITS | Encounter Summary ---
:1945 [place] [address] Care Team Providers Name Role Phone France Lam MD Primary Care Provider Encounter Details Date Type Department Care Team Description 12/29/2019 Ancillary Procedure Radiology Library at Ivette Salas [facility] STEPHANIE [facility] [place] [address] [place] [address] [phone] (Wo rk) Social History Tobacco Use Types [...] is for storage only. Alfreda Salas APRN [facility] FILM LIBRARY ORDERABLES Performing Organization Address City/State/ZIP Code Phon e Number [place] documented in this encounter Visit Diagnoses Not on filedocumented in this encounter Care Teams Journeyman Molder Relationship Specialty Start Date End Date France Lam MD PCP - General 05/02/13 02/04/20 [address] [place] [address] documented as of this encounter
--- OUTSIDE RECORDS SUMMARY | 2022-03-21 11:04 | XMS_ITS | Encounter Summary ---
:1945 Author Organization [facility] [place] [address] Care Team Providers Name Role Phone France Lam MD Primary Care Provider Encounter Details Date Type Department Care Team Description 12/24/2019 Telephone Neurosurgery at [facility] Cathy Jay [facility] [place] [address] Social History Tobacco Use Types Packs/Day Years Used Date Current Every Day Smoker Cigars 0.5 Sex Assigned at Date Recorded Not on file documented as of this encounter Miscellaneous Notes Telephone Encounter - Elza Bradshaw - 01/08/2020 4:53 PM EDT Spoke with Naa in the film library, CT available, uploading not. Scheduled patient for TOV with [facility]. Telephone Encounter - Elza Bradshaw - 01/01/2020 5:28 PM EDT Patient completed CT on 12/28. Faxed push request to [facility] Telephone Encounter - Elza Bradshaw - 12/25/2019 11:50 AM EDT Called [facility] field representative/health education I spoke with patient has plan N and does not require authorization. Order faxed with demos to [facility]. Postponing to allow time for scheduling. Telephone Encounter - Cathy Jay - 12/24/2019 11:42 AM EDT Patient needs f/u appointment(s): With [facility] on/around 01/13 3 weeks TOV, s/p Intracranial hemorrhage, [facility] prior 1. [facility] [place]? ~~~~~~~~~~~~~~~~~~~~~~~~~~~~~~~~~~~~~~~~~~~~~~~~~~~~~~ Alfreda Salas APRN Sent: Maria Victoria December 23, 2019 ??7:39 PM To: P [facility] Pca Jovany Hi ( ) : 1945> ?? Follow-up and Dispositions Check-out Note: Follow up head CT and TOV in 3 weeks unless vision worsens or he develops new symptoms in meantime ([facility] for CT) documented in this encounter Plan of Treatment Not on filedocumented as of this encounter Visit Diagnoses Not on filedocumented in this encounter Care Teams Skates Operator Relationship Specialty Start Date End Date France Lam MD PCP - General 05/02/13 02/04/20 [address] [place] [address] documented as of this encounter
--- OUTSIDE RECORDS SUMMARY | 2022-03-21 11:04 | XMS_ITS | Encounter Summary ---
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 S/P DESx3 in the fskettsr-mv-elhocl RCA. Aspiration thrombectomy performed, and integrellin bolus [...] with ICH, bilateral PE; paroxysmal atrial fibrillation [[id number]: 5]; PAD; HLD; HTN; smoking and PFO, who presents for post-discharge cardiovascular follow-up. CV issues are currently stable. Plan 1. CAD - CCS Class 0. Recovering well. He has completed 1 month of triple therapy. He may stop his aspirin, and resume clopidogrel and apixaban. Starting cardiac rehab. He wishes to pursue PCSK9 referral via the [place] system. 2. Afib - CHADS2-vasc 5, presently [...] 6 months Faustino Garduno MD Time spent: [id number] 0-5min 3968UQX9 6-10min 2429BDK9 11-15min [id number] 16-20min XXXX 5996NDS8 21-30min [id number] 31-40min 8132HWF7 40+ min documented in this encounter Plan [...] type documented in this encounter Care Teams Veterinary Microbiologist Relationship Specialty Start Date End Date France Lam MD PCP - General 05/02/13 02/04/20 [address] [place] [address] documented as of this encounter
--- OUTSIDE RECORDS SUMMARY | 2022-03-21 11:04 | XMS_ITS | Encounter Summary ---
:1945 [place] [address] Care Team Providers Name Role Phone France Lam MD Primary Care Provider Encounter Details Date Type Department Care Team Description 12/08/2019 Orders Only Neurosurgery at [facility] [place] [place] Natalia Delong, Intracranial [facility] [place] [address] Social History Tobacco Use Types Packs/Day Years Used Date Current Every Day Smoker Cigars 0.5 Sex Assigned at Date Recorded Not on file documented as of this encounter Plan of Treatment Not on filedocumented as of this encounter Visit Diagnoses Diagnosis Intracranial hemorrhage Unspecified intracranial hemorrhage documented in this encounter Care Teams Thermodynamics Professor Relationship Specialty Start Date End Date France Lam MD PCP - General 05/02/13 02/04/20 [address] [place] [address] documented as of this encounter
--- OUTSIDE RECORDS SUMMARY | 2022-03-21 11:04 | XMS_ITS | Encounter Summary ---
:1945 Author Organization [facility] Address [address] [place] [address] Care Team Providers Name Role Phone France Lam MD Primary Care Provider Encounter Details Date Type Department Care Team Description 12/22/2019 Telephone Cardiology Riki Stevens, [facility] [place] [address] [facility] [phone] GENERAL INTERNAL MEDICINE [place] [phone] (Wo rk) Social History Tobacco Use Types [...] on filedocumented in this encounter Care Teams As400 Programmer Relationship Specialty Start Date End Date France Lam MD PCP - General 05/02/13 02/04/20 [address] [place] [address] documented as of this encounter
--- OUTSIDE RECORDS SUMMARY | 2022-03-21 11:04 | XMS_ITS | Encounter Summary ---
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 [phone] [place] [address] Social History Tobacco Use Types Packs/Day Years [...] best is to differ this conversation until assisted OAC strategy has been set. Specifically, if this is being treated as a provoked dvt/pe, then would re-evaluate to coordinated with OAC discontinuation. I discussed the above findings with the patient and his both of whom appear to understand and is in agreement with the plan going forward. Merlin Sanchez M.D., F.A.C.C. configuration specialist Pager 2020 >50% of the 15 minute [...] failure documented in this encounter Care Teams Conveyancer Relationship Specialty Start Date End Date France Lam MD PCP - General 05/02/13 02/04/20 [address] [place] [address] documented as of this encounter
--- OUTSIDE RECORDS SUMMARY | 2022-03-21 11:04 | XMS_ITS | Encounter Summary ---
:1945 Author Organization [facility] [place] [address] Care Team Providers Name Role Phone France Lam MD Primary Care Provider Reason for Visit Reason Onset Date Comments TeleHealth 01/12/2020 Encounter Details Date Type Department Care Team Description 01/12/2020 Telephone Neurosurgery at [facility] Alfreda Salas, TeleHealth [facility] [place] [address] [facility] [phone] [place], [place] [address] (Wo rk) Social History Tobacco [...] on filedocumented in this encounter Care Teams Chocolate Finisher Operator Relationship Specialty Start Date End Date France Lam MD PCP - General 05/02/13 02/04/20 [address] [place] [address] documented as of this encounter
--- OUTSIDE RECORDS SUMMARY | 2022-03-21 11:04 | XMS_ITS | Encounter Summary ---
:1945 Author Organization [facility] Address [address] [place] [address] Care Team Providers Name Role Phone France Lam MD Primary Care Provider Encounter Details Date Type Department Care Team Description 12/18/2019 Ancillary Procedure Radiology Library at Debi Lam [facility] [address] [place] [address] [place] [address] [phone] Social History Tobacco Use Types Packs/Day Years Used Date Current Every Day Smoker Cigars 0.5 Sex Assigned at Date Recorded Not on file documented as of this encounter Plan of Treatment Not on filedocumented as of this encounter Procedures Procedure Name Priority Date/Time Associated Diagnosis Comme nts FILM LIBRARY Routine 12/18/2019 5:04 PM Results f or this STORAGE ONLY CT EDT procedure ar e in HEAD the results section. documented in this encounter Results Film Library- Storage Only CT Head (12/18/2019 5:04 PM EDT) Specimen (Source) Anatomical Location Collection Method / Collectio n Time Received Time / Laterality Volume Narrative JADE - 12/18/2019 5:04 PM EDT This exam is auto-finalizing. It's purpo se is for storage only. France Lam MD [facility] FILM LIBRARY ORDERABLES Performing Organization Address City/State/ZIP Code Phon e Number [place] documented in this encounter Visit Diagnoses Not on filedocumented in this encounter Care Teams Wellness Assistant Relationship Specialty Start Date End Date France Lam MD PCP - General 05/02/13 02/04/20 [address] [place] [address] documented as of this encounter
--- OUTSIDE RECORDS SUMMARY | 2022-03-21 11:04 | XMS_ITS | Encounter Summary ---
:1945 Author Organization [facility] [place] [address] Care Team Providers Name Role Phone France Lam MD Primary Care Provider Encounter Details Date Type Department Care Team Description 01/09/2020 TH Visit Neurology at [facility] Efrain Nicole, Intracranial hemorrhage; (TeleHealth) [facility] ESTEFANY Tobacco abuse; Drive [facility] Cerebrovascular accident (CV A) due to embolism of right posterior cerebral artery [facility] [address] NEUROLOGY [phone] [place] [address] Social History Tobacco Use Types Packs/Day Years Used Date Current Every Day Smoker Cigars 0.5 Sex Assigned at Date Recorded Not on file documented as of this encounter Progress Notes Efrain Nicole PA - 01/09/2020 9:00 AM EDT Cerebrovascular Disease and Stroke Program [place] [address] t: [phone] / f: [phone] TELEPHONE ENCOUNTER Date of Appointment: 01/09/2020 I [...] cardiology - had f/u head CT at [facility] which was stable with resolving known hemorrhage - has not resumed smoking -has been in touch with Dr. Sanchez for Watchman, deferred for duration of anticoagulation for PE Modified [place] Scale (MRS) 0: No symptoms at all [...] -advised vision/eye exam with his local provider ([facility] eye [facility]); consider referral to neuro-ophthalmology here in future [...] artery documented in this encounter Care Teams Vp Relationship Specialty Start Date End Date France Lam MD PCP - General 05/02/13 02/04/20 [address] [place] [address] documented as of this encounter
--- OUTSIDE RECORDS SUMMARY | 2022-03-21 11:04 | XMS_ITS | Encounter Summary ---
:1945 Author Organization [facility] [address] Care Team Providers Name Role Phone France Lam MD Primary Care Provider Encounter Details Date Type Department Care Team Description 12/08/2019 Telephone Neurosurgery at [facility] [place] [address] Social History Tobacco Use Types Packs/Day Years Used Date Current Every Day Smoker Cigars 0.5 Sex Assigned at Date Recorded Not on file documented as of this encounter Miscellaneous Notes Telephone Encounter - Elza Bradshaw - 12/22/2019 6:[address] in [facility] Telephone Encounter - Elza Bradshaw - 12/18/2019 3:43 PM EDT Left message at [facility] requesting they call back to advise if patient has been scheduled for CT. Telephone Encounter - Sarah Boucher - 12/08/2019 3:[address] order to [facility] to schedule, 12/16-12/18 for 12/22 TOV scheduled w/[facility] Telephone Encounter - Sarah Boucher - 12/08/2019 9:50 AM EDT RN, please put in CT order external=[facility] Pt's called not able to come to [facility] on 12/[address] requested to have CT locally at [facility] call w/results. documented in this encounter Plan of Treatment Not on filedocumented as of this encounter Visit Diagnoses Not on filedocumented in this encounter Care Teams Acct Exec Relationship Specialty Start Date End Date France Lam MD PCP - General 05/02/13 02/04/20 [address] [place] [address] documented as of this encounter
--- OUTSIDE RECORDS SUMMARY | 2022-03-21 11:05 | XMS_ITS | Encounter Summary ---
:1945 Author Organization [facility] [place] [address] Care Team Providers Name Role Phone France Lam MD Primary Care Provider Encounter Details Date Type Department Care Team Description 11/30/2019 Orders Only Cardiology [facility] [place] [id number] Social History Tobacco Use Types Packs/Day [...] fajardo ? (Age): 1945(74y) Med Rec#: ? [id number] ?Sex: ?M ? Site Loc: ? Ht / Wt: ??(cm)/ (kg) ? Pt. Loc: ? Study Date: ?? 11/29/2019 ?Pt. Type: Tape: ? Referring: Faustino Garduno Reading: Dawit Mejia ([id number]) Can Inspector: [employer] Coding Assistant: Cedric Eric ([id number]) Interpreting Fellow: Cedric Eric ([id number]) Diagnosis: SUMMARY: 1. Limited bedside echocardiogram perfor med by decision analyst facilities director for hypotension following inferior STEMI . 2. [...] ? Mid-Inferior ?Akinetic ? Mid-Inferoseptal ?Hypokinetic ? [place]-Septal ? Normal ? [place]-Anterior ? Normal ? [place]-Lateral ?Normal ? [place]-Inferior ? Hypokinetic ? [place]-Tip ?Normal ? This report has been electronically sign ed by: _ Dawit Mejia MD ? 11/30/2019 12: 53:59 Images reviewed and interpretation [email or web address] [email or web address] [facility] Cardiac Ultrasound Laboratory Procedure Note Dawit Mejia MD - 11/30/2019Formatti ng of this note might be different from the original. Procedure: Transthoracic Echocardiogram Patient: domenica ACOSTA(Age): [age]y) Med Rec#: [id number] Sex: M Site Loc: Ht / Wt: (cm)/ (kg) Pt. Loc: Study Date: 11/29/2019 Pt. Type: Tape: Referring: Faustino Garduno Reading: Dawit Mejia ([id number]) Can Inspector: [employer] Coding Assistant: Cedric Eric ([id number]) Interpreting Fellow: Cedric Eric ([id number]) Diagnosis: SUMMARY: 1. Limited bedside echocardiogram perfor med by decision analyst facilities director for hypotension following inferior STEMI . 2. [...] Normal Mid-Posterolateral Akinetic Mid-Inferior Akinetic Mid-Inferoseptal Hypokinetic [place]-Septal Normal [place]-Anterior Normal [place]-Lateral Normal [place]-Inferior Hypokinetic [place]-Tip Normal This report has been electronically sign ed by: _ Dawit Mejia MD 11/30/2019 12:53:59 Images reviewed and interpretation verif ied [facility] Cardiac Ultrasound Laboratory Unknown ECHO ORDERABLES documented in this encounter Visit Diagnoses Not on filedocumented in this encounter Care Teams Oil Processing Technician Relationship Specialty Start Date End Date France Lam MD PCP - General 05/02/13 02/04/20 [address] [place] [address] documented as of this encounter
--- OUTSIDE RECORDS SUMMARY | 2022-03-21 11:05 | XMS_ITS | Encounter Summary ---
:1945 Author Organization [facility] [place] [address] Care Team Providers Name Role Phone France Lam MD Primary Care Provider Reason for Referral Consultation (Routine) - Specialty Diagnoses / Procedures Referred By Contact Refer red To Contact Cardiology Diagnoses Acute ST elevation myocardial infarction (STEMI) of inferior wall Darrell Glasgow MD [facility] [place] [address] Referral ID Status Reason Start Date Expiration Date Visits V isits Requested Authorized [id number] Consult, 12/08/2019 06/05/2020 1 1 Test & Treat Consultation (Routine) - Closed Specialty Diagnoses / Referred By Contact Referred To Contact Procedures Cardiac Rehabilitation Diagnoses ST elevation myocardial infarction involving right coronary artery Gretchen Yoon, Cardiac Rehab, [address] [place] [phone] Fax: Referral ID Status Reason Start Date Expiration Date Visits V isits Requested Authorized [id number] Closed Consult, 12/08/2019 06/05/2020 36 36 Test & Treat Reason for Visit Auth/Cert Specialty Diagnoses / Procedures Referred By Contact Refer red To Contact Diagnoses STEMI (ST elevation myocardial infarction) STEMI Procedures CARDIAC CATHETERIZATION Referral ID Status Reason Start Date Expiration Date Visits Requ ested Visits Authorized [id number] 1 1 Encounter Details Date Type Department Care Team Description 11/29/2019 - Hospital Encounter Cardiac Special YoungBarbra MD [facility] [place] [address] ST elevation myocardial infarction invol ving left main coronary artery; 12/08/2019 Care Unit Paris Lozano MD [facility] [place] [address] ST elevation myocardial infarction invol ving right coronary artery; [facility] [place] Edema of upper extremity; Hospital Intracranial hemorrhage; [facility] Paroxysma l atrial fibrillation; Drive Acute pulmonary embolism, un specified pulmonary embolism type, unspecified whether acute cor pulmonale present; [place], [place] Acute ST elevat ion myocardial infarction (STEMI) of inferior wall [id number] Social History Tobacco Use Types Packs/Day Years [...] Luis Salinas Patient Age: 74 y.o. Language: Ghanaian Race: White Ethnicity: Not nor Admit date: [...] months on: antiplatelet therapy at discretion of airline hostess - Repeat TTE in 3 months to reassess LV function - Repeat BMP in 1-2 weeks given recent start lisinopril - Referred to lipid clinic for consideration of PCSK-9 inhibitor given STEMI with intolerance of statins - Started on amiodarone this admission for recurrent rapid atrial flutter with rates ~170, recommendcontinued assessment of necessity of rhythm control strategy with airline hostess - Amiodarone monitoring recommendations as below - [...] please contact your inpatient physician through the [facility] Rehab Nurse . Issues after hours and on weekends [...] took two full strength aspirinand came to [facility] ED. At there was found to [...] and Compazine. He was transferred directly to [facility] via [facility] for further management. Patient had an emergent PCI with 3 MACARIO stents placed to his RCA, with mild disease of LCX (report pending) at [facility]. He was found to be persistently hypotensive requiring Levo up to 10mcg/min. He was transferred to [facility] after the cath procedure. Bedside RHC showed CI 2.12, PAWP 11, PAP 38/15 indicating hypovolemic state. He received 1L bolus of NS with improvement of his blood pressure to 124/61. History of PAD, HLD - had side reactions to statins - so taking niacin and red rye grain. Chronic active smoker with more than 65 pack years. Family history of [place] in father and two uncles. He's takingbaby [...] drip as described above. On arrival at [facility] he was taken for cardiac cath where [...] this report, please contact the number below. Angiogram [place] (Exam End: 11/30/2019 4:36 PM) Impression Head CT: Stable hemorrhage in the region of the left optic tract. CTA: Negative exam. No abnormal vasculature in the area of hemorrhage. Thank you for letting us participate in the care of this patient. For questions regarding this report, please contact the number below. Electronically signed by: Angel Luis Barboza MD, [facility] ([phone]), at 11/30/2019 5:04 PM MRI Brain wo [...] Electronically signed by: Angel Luis Barboza MD, [facility] ([phone]), at 12/01/2019 8:02 PM XR Chest One [...] ??? Penicillins Pt doesn't remember reaction ??? Vgxorwa-Fgd-Bbl Reductase Inhibitors Stiff neck, upset stomach, back [...] medications at another hospital and then at [facility] you had a stent placed in a [...] FOR ONE MONTH AND THEN STOP. Your airline hostess may tell you to start this medication again after one year. Clopidogrel (Plavix) 75 mg daily - This medication will help prevent clots from forming in your blood, which will help protect the stent that was placed in your heart vessel. TAKE THIS FOR ONE YEAR ANDTHEN DISCUSS WITH YOUR LAUNDRY TUB MAKER WHETHER TO STOP. Amiodarone 400mg twice daily [...] follow up: Your primary care provider and airline hostess will manage your blood thinner (apixaban). You do not need lab monitoring of this medication. Diet: Please consume a healthy diet low in cholesterol Follow up Appointments: 12/10/2019 at 3:10PM with PCP Angel Luis Lott Future Appointments Date Time Provider Department Center 12/23/2019 1:30 PM Alfreda Salas APRN [address] 12/26/2019 9:40 AM Merlin Sanchez MD [facility] CARD 4A [facility] 12/30/2019 3:40 PM Gretchen Yoon MD [facility] 4A [facility] Future Appointments and Orders Future Appointments and Orders Future Appointments Provider Department Dept Phone 12/23/2019 1:30 PM Alfreda Salas APRN Neurosurgery at [facility] Arrive at: Home [phone] Please do not come in for this visit. Your provider will call you at the number you provided. 12/26/2019 9:40 AM Merlin Sanchez MD Cardiology at [facility] Arrive at: Home [phone] Please do not come in for this visit. Your provider will call you at the number you provided. 12/30/2019 3:40 PM Gretchen Yoon MD Cardiology at [facility] Arrive at: Home [phone] Please do not come in for this visit. Your provider will call you at the number you provided. Future Orders Complete By Expires Referral to Cardiac Rehab [[id number] Custom] As directed Process Instructions: If no progress note charted, please enter Clinical details in comments. Scheduling Instructions: Questions: My question or request is: STEMI. Cardiac rehab at [facility] Referral to [facility] Treatment [facility] [REF43 Custom] As directed Process Instructions: If no progress note charted, please enter Clinical details in comments. Scheduling Instructions: Questions: My question or request is: patient with inferior stemi with history of statin allergy (rash) - please evaluate for psck9 inhibitor. Referral to Home Health - at DISCHARGE [QZH4379 CPT(R)] As directed Process Instructions: Scheduling Instructions: Comments: DOCUMENTATION FOR VNA SERVICES PATIENT'S LOCATION: [address] [phone] (home) Radiology Asst's Name: Self In discussion with the attending physician, it is certified that this patient is under his/her care and that MD, or an DAIRY SPECIALIST, ORACLE IAM CONSULTANT, or PA who is working directly with him/her, had a xkuc-kn-irhr encounter that meets the physician wbtc-dr-sfom encounter requirements with this patient on 12/07/2019. [...] for managing ADLs. HOME HEALTH CARE AGENCY: [facility], PHONE: [phone] FAX: [phone] Start of care: 24-48 hours after hospital [...] MD [address] / [place] [address] All A agencies which cover the area of patient's residence have been reviewed, either verbally or in writing, and patient/family have chosen the home health care agency noted. Questions: Agency name and contact information: [facility] Patient location post discharge: Home What services are requested: Registered Nurse Physical Therapy Occupational Therapy Start date: Responsible MD post discharge contact info: PCP Your PCP: France Lam MD [phone] For questions regarding this document or issues relating to this hospitalization on the Cardiology Service, please contact your inpatient physician through the [facility] Rehab Nurse . Issues after hours and on weekends will be handled by the Time Recorder on-call. Patient Instructions: Neurology Your Diagnosis: Left [...] follow-up appointment in the neurology clinic at [facility]. See below for the appointment [...] 1:30 PM Alfreda Salas APRN Neurosurgery at [facility] Arrive at: Home [phone] Please do not come in for this visit. Your provider will call you at the number you provided. 12/26/2019 9:40 AM Merlin Sanchez MD Cardiology at [facility] Arrive at: Home [phone] Please do not come in for this visit. Your provider will call you at the number you provided. 12/30/2019 3:40 PM Gretchen Yoon MD Cardiology at [facility] Arrive at: Home [phone] Please do not come in for this visit. Your provider will call you at the number you provided. Future Orders Complete By Expires Referral to Cardiac Rehab [[id number] Custom] As directed Process Instructions: If no progress note charted, please enter Clinical details in comments. Scheduling Instructions: Questions: My question or request is: STEMI. Cardiac rehab at [facility] Referral to [facility] Treatment Center [REF43 Custom] As directed Process Instructions: If no progress note charted, please enter Clinical details in comments. Scheduling Instructions: Questions: My question or request is: patient with inferior stemi with history of statin allergy (rash) - please evaluate for psck9 inhibitor. Referral to Home Health - at DISCHARGE [INY7892 CPT(R)] As directed Process Instructions: Scheduling Instructions: Comments: DOCUMENTATION FOR VNA SERVICES PATIENT'S LOCATION: [address] [phone] (home) Radiology Asst's Name: Self In discussion with the attending physician, it is certified that this patient is under his/her care and that MD, or an DAIRY SPECIALIST, ORACLE IAM CONSULTANT, or PA who is working directly with him/her, had a mocn-uv-uepn encounter that meets the physician uysh-pg-zezz encounter requirements with this patient on 12/07/2019. [...] for managing ADLs. HOME HEALTH CARE AGENCY: [facility], PHONE: [phone] FAX: [phone] Start of care: 24-48 hours after hospital [...] France Lam MD [address] / [facility] [address] All A agencies which cover the area of patient's residence have been reviewed, either verbally or in writing, and patient/family have chosen the home health care agency noted. Questions: Agency name and contact information: [facility] Patient location post discharge: Home What services are requested: Registered Nurse Physical Therapy Occupational Therapy Start date: Responsible MD post discharge contact info: PCP Discharge References/Attachments Atrial Fibrillation (Ghanaian) Cardiac Rehabilitation (Ghanaian) Heart Failure (Ghanaian) Heart Failure: Limiting Sodium (Ghanaian) Hemorrhagic Stroke: General Info (Ghanaian) Smoking: Stopping (Ghanaian) Stroke Rehabilitation: General Info (Ghanaian) Pulmonary Embolism (Ghanaian) Riki Stevens MD PGY-3, Internal Medicine Cardiology S2, #9118 Associated attestation - Paris Dodd MD - 12/09/2019 4:44 PM EDT Cardiology Attending Discharge Addendum I was the assigned attending airline hostess for this clinical encounter. For the purposes [...] complications include novel onset, paroxysmal atrial fibrillation [[id number]: 5] & L-sided diplopia with potential hemineglect [...] information: Paris Matt MD MPH [place] [phone] (office); Pager #[phone] Email: [email or web address] documented in this encounter Discharge Instructions Patient InstructionsFiRiki de jesus MD - 12/02/2019 9:56 AM EDT Images from the original note were not included. Why you were hospitalized: You had a heart attack. You received clot-busting medications at another hospital and then at [facility] you had a stent placed in a [...] FOR ONE MONTH AND THEN STOP. Your airline hostess may tell you to start this medication again after one year. Clopidogrel (Plavix) 75 mg daily - This medication will help prevent clots from forming in your blood, which will help protect the stent that was placed in your heart vessel. TAKE THIS FOR ONE YEAR ANDTHEN DISCUSS WITH YOUR LAUNDRY TUB MAKER WHETHER TO STOP. Amiodarone 400mg twice daily [...] follow up: Your primary care provider and airline hostess will manage your blood thinner (apixaban). You do not need lab monitoring of this medication. Diet: Please consume a healthy diet low in cholesterol Follow up Appointments: 12/10/2019 at 3:10PM with PCP Angel Luis Lott Future Appointments Date Time Provider Department Center 12/23/2019 1:30 PM Alfreda Salas APRN [facility] [id number] [facility] 12/26/2019 9:40 AM Merlin Sanchez MD [facility] CARD 4A [facility] 12/30/2019 3:40 PM Gretchen Yoon MD [facility] CARD 4A [facility] Future Appointments and Orders Future Appointments and Orders Future Appointments Provider Department Dept Phone 12/23/2019 1:30 PM Alfreda Salas APRN Neurosurgery at [facility] Arrive at: Home [phone] Please do not come in for this visit. Your provider will call you at the number you provided. 12/26/2019 9:40 AM Merlin Sanchez MD Cardiology at [facility] Arrive at: Home [phone] Please do not come in for this visit. Your provider will call you at the number you provided. 12/30/2019 3:40 PM Gretchen Yoon MD Cardiology at [facility] Arrive at: Home [phone] Please do not come in for this visit. Your provider will call you at the number you provided. Future Orders Complete By Expires Referral to Cardiac Rehab [[id number] Custom] As directed Process Instructions: If no progress note charted, please enter Clinical details in comments. Scheduling Instructions: Questions: My question or request is: STEMI. Cardiac rehab at [facility] Referral to Cholesterol Treatment Center [REF43 Custom] As directed Process Instructions: If no progress note charted, please enter Clinical details in comments. Scheduling Instructions: Questions: My question or request is: patient with inferior stemi with history of statin allergy (rash) - please evaluate for psck9 inhibitor. Referral to Home Health - at DISCHARGE [[id number] CPT(R)] As directed Process Instructions: Scheduling Instructions: Comments: DOCUMENTATION FOR VNA SERVICES PATIENT'S LOCATION: [address] [phone] (home) Radiology Asst's Name: Self In discussion with the attending physician, it is certified that this patient is under his/her care and that MD, or an DAIRY SPECIALIST, ORACLE IAM CONSULTANT, or PA who is working directly with him/her, had a phzu-zr-hysy encounter that meets the physician kvdj-jb-bfiy encounter requirements with this patient on 12/07/2019. [...] for managing ADLs. HOME HEALTH CARE AGENCY: [facility], PHONE: [phone] FAX: [phone] Start of care: 24-48 hours after hospital [...] MD [address] / [place] [address] All A agencies which cover the area of patient's residence have been reviewed, either verbally or in writing, and patient/family have chosen the home health care agency noted. Questions: Agency name and contact information: [facility] Patient location post discharge: Home What services are requested: Registered Nurse Physical Therapy Occupational Therapy Start date: Responsible MD post discharge contact info: PCP Your PCP: France Lam MD [phone] For questions regarding this document or issues relating to this hospitalization on the Cardiology Service, please contact your inpatient physician through the [facility] Rehab Nurse . Issues after hours and on weekends will be handled by the Time Recorder on-call. Patient Instructions: Neurology Your Diagnosis: Left [...] follow-up appointment in the neurology clinic at [facility]. See below for the appointment time. If you do not have an appointment, you will be called with a time/date for this appointment. ??? Primary Care Provider: Please follow up with your Primary Care Provider within one to 2 weeks ofdischarge. AttachmentsThe following attachments cannot be sent through Care Everywhere. Atrial Fibrillation (Ghanaian)Cardiac Rehabilitation (Ghanaian)Heart Failure (Ghanaian)Heart Failure: Limiting Sodium (Ghanaian)Hemorrhagic Stroke: General Info (Ghanaian)Smoking: Stopping (Ghanaian)Stroke Rehabilitation: General Info (Ghanaian)Pulmonary Embolism (Ghanaian)documented in this encounter Medications at Time of [...] consulted in the interim. Vikash Rodriguez Pager: [phone] Paris Dodd MD - 12/08/2019 8:57 AM [...] complications include novel onset, paroxysmal atrial fibrillation [[id number]: 5] & L-sided diplopia with potential hemineglect [...] consulted in the interim. Vikash Rodriguez Pager: [phone] Paris Dodd MD - 12/07/2019 9:55 AM [...] complications include novel onset, paroxysmal atrial fibrillation [JRE5RL8QVJL: 5] & L-sided diplopia with potential hemineglect [...] complications include novel onset, paroxysmal atrial fibrillation [DTC2ER2PTRV: 5] & L-sided diplopia with potential hemineglect [...] complications include novel onset, paroxysmal atrial fibrillation [QLB5WG4YFDD: 5] & L-sided diplopia with potential hemineglect [...] today; additional complications include paroxysmal atrial fibrillation [TGV8EY7GGMF: 4] c/b possible cardioembolic stroke, ICH from [...] length from neck/greatest diameter to back wall: YEMENI 91, CAU 13: 19 mm CORTES 1, [...] a non-culprit artery. S/P DESx3 in the iordrcdd-cl-qimlff RCA. Aspiration thrombectomy performed, and integrellin bolus [...] complications include novel onset, paroxysmal atrial fibrillation [LTX9IS6WVTE: 5] & L-sided diplopia with potential hemineglect [...] R occipital cardioembolic stroke #Paroxysmal Afib with PA6YJAEY7M score of 5 #New segmental bilateral PEs [...] Glasgow MD PGY1, Internal Medicine Cardiology S2, #3419 Associated attestation - Paris Dodd MD - 12/05/2019 2:59 PM EDT I was the assigned attending airline hostess for this clinical encounter. For the purposes [...] 12/04/2019 10:36 AM EDT Office of Care Management(OCM)/Pipeline Integrity Engineer(CM)/Discharge Planning Service: Cardiology S2 team CM Bernie Alexander,RN,BSN,MA,ACM pgr [phone] Reviewed record and in Cardiology Rounds with MD team,CMs, laboratory analyst, OFFICE ASSISTANT. Pt is anticipated ready for d/c later today. Met w pt re d/c plan and he continues to agree with home PT/OT/RN w [place]. His son is bringing his to pick him up together. Discussed Advance Directives and DPOAH- he states he has at home and designated his as primiary; he thought his PCP would have copy. Tel call to PCP who notes no DPOAH on file. Encouraged pt to take his AD to his PCP and to any [facility] appt for each to have on file. [...] complications include novel onset, paroxysmal atrial fibrillation [HOE7ZY7RHQE: 4] & L-sided diplopia with potential hemineglect [...] a non-culprit artery. S/P DESx3 in the sumyngxc-mh-gafybm RCA. Aspiration thrombectomy performed, and integrellin bolus [...] complications include novel onset, paroxysmal atrial fibrillation [MRM6VF9PCHR: 5] & L-sided diplopia with potential hemineglect [...] R occipital cardioembolic stroke #Paroxysmal Afib with WM3RPLIX8M score of 5 - No anticoagulation for [...] Glasgow MD PGY1, Internal Medicine Cardiology S2, #4766 I have seen the patient and reviewed [...] in my clinic. Gretchen Yoon MD Pager [phone] Derian Pascual RN - 12/03/2019 9:29 AM [...] Discharge: None Electronically signed: Derian Pascual RN, Pipeline Integrity Engineer Pgr: [phone] 12/03/2019 9:29 AM Gretchen Yoon [...] complications include novel onset, paroxysmal atrial fibrillation [LTW0LQ6DIFV: 4] & L-sided diplopia with potential hemineglect [...] a non-culprit artery. S/P DESx3 in the pzwztrrm-ox-xpvusd RCA. Aspiration thrombectomy performed, and integrellin bolus [...] complications include novel onset, paroxysmal atrial fibrillation [PLK7PJ6NFVX: 5] & L-sided diplopia with potential hemineglect [...] [facility] and follow up with his PCP. Patient voiced strong will to quit smoking now, understood that we have resources available for help. Plan [P]: --Neurologic-- # Concern for Left-Sided Diplopia, r/o Hemineglect # Concern for CVA, last-known well 11/29/19 - MRI showed possible cardioembolic stroke #Afib with MS8NLFUS3Z score of 5 - Stroke Team Consulted; [...] Anticoagulation/Arrhythmia # Novel Onset, Paroxsymal Atrial Fibrillation [HBL0YZ2UQHC: 5] - Hold off anticoagulation for at [...] w straight cath prn # Nutrition - [facility] Diet, 2g Na. -- Hematology/Oncology-- # Mild [...] Glasgow MD PGY1, Internal Medicine Cardiology S2, #6572 I have seen the patient and reviewed the resident's above history and I agree with the details as written. The assessment and plan were formulated in discussion with me and I agree with them as documented. Gretchen Yoon MD Pager [phone] Raul Hein RN - 12/03/2019 5:55 AM [...] Negative mcL Appearance UA Clear Clear Spec [place] UA 1.026 1.006 - 1.030 Color UA [...] PGY3 Neurology Resident 12/01/2019 Vascular Neurology Pager [phone] Neurology Attending Attestation I evaluated the patient [...] documented. Deepthi Roman MD Vascular Neurology Standard [facility] Swallow Screen: This screen is to be [...] diet as medical provider deems appropriate. Consider MONUMENT STONECUTTER consult for full evaluation and diet recommendations. [...] complications include novel onset, paroxysmal atrial fibrillation [VUA3US2AGSD: 4] & L-sided diplopia with potential hemineglect [...] a non-culprit artery. S/P DESx3 in the xgajfsid-qy-yaynmy RCA. Aspiration thrombectomy performed, and integrellin bolus [...] complications include novel onset, paroxysmal atrial fibrillation [SMU6AV9XMSC: 5] & L-sided diplopia with potential hemineglect [...] Anticoagulation/Arrhythmia # Novel Onset, Paroxsymal Atrial Fibrillation [EXV4IU2UOCH: 5] - Hold off anticoagulation - pending [...] tamsulosin d/t low BP. # Nutrition - [facility] Diet -- Hematology/Oncology-- # Mild Thrombocytopenia, unclear [...] Glasgow MD PGY1, Internal Medicine Cardiology S2, #4596 I have seen the patient and reviewed [...] the ICU team. Gretchen Yoon MD Pager [phone] Natalia Claros APRN - 12/02/2019 8:38 AM [...] - We are signing off. Please page [phone] with any questions or concerns. For questions please call NS pager [phone] Natalia Claros APRN 12/02/2019 8:38 AM Clinical Documentation Improvement: Active Hospital Problems Diagnosis ??? Acute ST elevation myocardial infarction (STEMI) of inferior wall ??? Intracranial hemorrhage ??? Hyperlipidemia ??? Tobacco abuse ??? Claudication from peripheral vascular disease, left Resolved Hospital Problems No resolved problems to display. Tello Hsu, RIBBON LAPPER TENDER - 12/02/2019 2:06 AM EDT 06/01/20 2010 [...] Scan in afternoon. Upon arrival back in [facility] placed on low flow NC [...] complications include novel onset, paroxysmal atrial fibrillation [[id number]: 4] & L-sided diplopia with potential hemineglect for which CVA evaluationto be pursued. Active Problems/Subjective: - 11/28: admitted for inferior STEMI, RV failure requiring pressor - got lytics, aspirin and plavix load, heparin gtt, and eptifibatide. 3 MACARIO stents to RCA. [place] cath - low wedge & CVP so [...] a non-culprit artery. S/P DESx3 in the rnueqcok-kp-ckfzis RCA. Aspiration thrombectomy performed, and integrellin bolus [...] complications include novel onset, paroxysmal atrial fibrillation [[id number]: 4] & L-sided diplopia with potential hemineglect [...] Anticoagulation/Arrhythmia # Novel Onset, Paroxsymal Atrial Fibrillation [[id number]: 4] - Obtain: TTE - Pending CVA [...] tamsulosin d/t low BP. # Nutrition - [facility] Diet -- Hematology/Oncology-- # Mild Thrombocytopenia, unclear [...] MD, PGY1 PGY3, Internal Medicine Cardiology S2, #[id number] I have seen the patient and reviewed [...] down the line. Gretchen Yoon MD Pager [phone] ?? Gretchen Yoon MD Pager [phone] Natalia Claros APRN - 12/01/2019 1:33 AM [...] per primary team For questions please call [employer] pager [phone] Natalia Claros APRN 12/01/2019 7:42 AM Clinical Documentation Improvement: Active Hospital Problems Diagnosis ??? Acute ST elevation myocardial infarction (STEMI) of inferior wall ??? Intracranial hemorrhage ??? Hyperlipidemia ??? Tobacco abuse ??? Claudication from peripheral vascular disease, left Resolved Hospital Problems No resolved problems to display. Tello Hsu, RIBBON LAPPER TENDER - 11/30/2019 8:44 PM EDT Respiratory Therapy [...] EDT Narrative:Visited in response to request for Section Leader services. Pt was awake, alert, oriented and in bed. Assessment:Patient coping positively with stresses of illness/hospitalization at this time. Pt says that he is hoping to get better and pt is living with and has children and grandchildren. Pt haspurpose of life and has reason to get getter and to be with family. Outcome: Provided emotional and spiritual support and encouraging presence. Section Leader services accepted.Conversation to build trusting relationship.Provided pastoral [...] complications include novel onset, paroxysmal atrial fibrillation [[id number]: 4] & L-sided diplopia with potential hemineglect for which CVA evaluationto be pursued. Active Problems/Subjective: - Overnight, CVP < 12 for which a total of 1 L IVF provided - Today AM, patient complains of subjectively reported, left-sided hemineglect with floaters and diplopia [see: exam]. - Otherwise, c/o neck pain 2/2 R IJ [place] & L radial A line. Otherwise, denies [...] a non-culprit artery. S/P DESx3 in the tsenimmw-ql-lbtvjf RCA. Aspiration thrombectomy performed, and integrellin bolus [...] complications include novel onset, paroxysmal atrial fibrillation [[id number]: 4] & L-sided diplopia with potential hemineglect [...] Anticoagulation/Arrhythmia # Novel Onset, Paroxsymal Atrial Fibrillation [[id number]: 4] - Obtain: TTE to confirm rhythm [...] tamsulosin d/t low BP. # Nutrition - [facility] Diet -- Hematology/Oncology-- # Mild Thrombocytopenia, unclear [...] MD, PGY3 PGY3, Internal Medicine Cardiology S2, #[id number] I have seen the patient and reviewed [...] down the line. Gretchen Yoon MD Pager [phone] Paola Capps RN - 11/30/2019 6:57 AM EDT PT still requiring 4 of levo, several attempts to titrate down (maps in 70;s) But maps would drop toless than 65. Pt very restless in bed Raising and lowering head denies pain . Integrillin stopped [id number] when bottle complete , urine tea colored [...] PCP: France Lam MD PCP phone #: [phone] Service Clerk: None ID/Chief Complaint: Chest pain History of Present Illness: 74 y.o male with no significant PMH, was in usual state of health until yesterday when he woke up at 4am this morning with severe crushing substernal chest pain 10/. He took two full strength aspirin and came to [facility] ED. At there was found to [...] and Compazine. He was transferred directly to [facility] via [facility] for further management. Patient had an emergent PCI with 3 MACARIO stents placed to his RCA, with mild disease of LCX (report pending) at [facility]. He was found to be persistently hypotensive requiring Levo up to 10mcg/min. He was transferred to [facility] after the cath procedure. Bedside RHC showed CI 2.12, PAWP 11, PAP 38/15 indicating hypovolemic state. He received 1L bolus of NS with improvement of his blood pressure to 124/61. History of PAD, HLD - had side reactions to statins - so taking niacin and red rye grain. Chronic active smoker with more than 65 pack years. Family history of NV in father and two uncles. He's takingbaby [...] ??? Penicillins Pt doesn't remember reaction ??? Ljezjzx-Cfi-Ytg Reductase Inhibitors Stiff neck, upset stomach, back pain Family History: Mother: Father: NV 2 Uncles with MIs Social History: Tobacco: Current active smoker 1 ppd. 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 Vitals: Last value Range last [...] in the last 7068 hours. Invalid input(s): [id number] Heme: No results for input(s): LDH, HAPTOGLOBIN, [...] OSH prior to transfer and PCI at [facility]. Massive inferior STEMI with troponin level 20, currently in CVCC due to pressor requirement. BedsideRHC demonstrated evidence of elevated right sided heart failure, but his wedge was wnl. He received 1L bolus with improvement of his blood pressure and reduction of his pressor requirement. PLAN: Admit to Cardiology, S2 Team Pager # [phone] #Inferior STEMI, LEYLA 149 - Resolving EKG [...] inferior STEMI s/p lytic therapy. Transferred to [facility] and underwent successful PCI of the RCA with MACARIO x3. Gretchen Yoon MD Pager [phone] documented in this encounter Procedure Notes Juventino [...] to the planned procedure. Hand Hygiene: The radiation protection technician did perform hand hygiene prior to arterial [...] a suspected line-associated infection. Location of Procedure: [facility] Risks and Benefits: The risks [...] to the planned procedure. Hand Hygiene: The radiation protection technician did perform hand hygiene prior to line [...] side:right An Introducer (PSI Kit) was used. [place]. Insertion Side: right. Insertion Site: internal jugular. Catheter Details: Number of Lumens: 1 Catheter Type: heparin-coated The line was placed over a guidewire. Confirmation of Venous Placement: Venous placement was confirmed by transducing the pressure. Introducer Insertion Attempts: 1 Comments: Floating the [place] Catheter Attempts: 1 Comments: Sterile Dressing: Biopatch [...] better pt back in SR. Please page [phone] for any more cares or concerns Plan [...] complications include novel onset, paroxysmal atrial fibrillation [[id number]: 5]& L-sided diplopia with potential hemineglect for [...] Total Evaluation Minutes, Occupational Therapy: 10 Pager: [phone] FRANCINE Nuñez Occupational Therapy Rehabilitation Department Plan [...] complications include novel onset, paroxysmal atrial fibrillation [[id number]: 5] & L-sided diplopia with potential hemineglect [...] hand rails). Baseline Mobility: Independent. Drives. 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 Time IN / OUT: 1976-2885 Total Evaluation Minutes, Physical Therapy: 15(gtx1) Barbara Baldwin, PT Pager: [phone] Physical Therapy Inpatient Rehabilitation Department Plan of [...] he receives all he needs through the [facility] [place]. Consult refused. Romain Tran, MSN, RN-, [facility] Tobacco Neurology Director [facility] Pager #[phone] Plan of Care - Romain Oglesby OT [...] complications include novel onset, paroxysmal atrial fibrillation [[id number]: 5] & L-sided diplopia with potential hemineglect [...] and measurable assessment of functional outcome. Pager: [phone] ROMAIN OGLESBY OT 12/03/2019 Occupational Therapy Rehabilitation [...] in an outpatient cardiac rehabilitation program at [facility] was discussed. Patient agrees to a referral to this program. His has been a cardiac rehab patient at [facility] and he is familiar with the program. [...] complications include novel onset, paroxysmal atrial fibrillation [[id number]: 5] & L-sided diplopia with potential hemineglect [...] hand rails). Baseline Mobility: Independent. Drives. 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 Time IN / OUT: 4682-2739 Total Evaluation Minutes, Physical Therapy: 25(eval, gtx1) Barbara Baldwin, PT Pager: [phone] Physical Therapy Inpatient Rehabilitation Department Consult Note [...] 31.2 (L) 12/01/2019 Nutritional Intake Current bed: [facility] A.I.R. Assessment: Patient is with an area [...] Please contact JOHANNA NOBLES RN on pager [phone] or the wound care team at [phone] or pager [phone] skin and wound care concerns or questions. [...] Salinas would be surrogate decision maker per [place] surrogate decision making law. Any patient receiving carspousee at [facility] must abide by [place] law. The hierarchy for surrogate decisionmaking is: [...] (i) The agent with financial power of divorce attorney or a conservator appointed in accordance [...] Insurance: N/A Prescription Coverage: Yes Preferred Pharmacy: [place], [place] Other: No Primary Care Provider: France Lam MD [phone] Patient/Caregiver Goals of Treatment: Return home Potential Needs for Transition of Care: Rehab/SNF: Based on discussions with the multi-disciplinary healthcare team, the patient would benefit from SNF level of care at discharge. ?? I have met with the patient to discuss discharge planning needs. I have provided the [facility], Officeof Care Management letter from the [employer] pertaining to rehab referrals. I have also provided a letter describing our affiliations within the [facility] and educated them about their right [...] patient have requested referrals to: ?? [facility]. [facility] [address] [place] [id number] ?? [address]. [address] [place] [address] Note routed to [employer] who will communicate referrals to facilities and provide any required information. Home Health: If therapies recommend home w/ VNA, the patient has been provided a list of Home Health Agencies/DME vendors which serve their preferred geographic area. A letter describing our affiliations was reviewed with them and they were educated about their right to choose where referrals are placed. Patient requests referral to [facility]. PHONE: [phone] FAX: [phone] Referral routed to the [employer] for matching with agency/vendor and to provide [...] Insured w/ Medicare. Gets medications filled at [facility] in [place], [place]. Son to transport at discharge Plan: Discharge dispo depending on patient's physical recovery; SNF vs home w/ VNA. A member of the Care Management team will continue to monitor progress, follow for continuity of care and assist with transition of care planning. Derian Pascual, NIURKA Pager: [phone] Plan of Care - Estefani Baeza RN [...] ??? Penicillins Pt doesn't remember reaction ??? Hcdiqfh-Rrd-Sux Reductase Inhibitors Stiff neck, upset stomach, back [...] noncontrast head CT and CT of the c[place]il de[place] of [place] at 1600 hrs. We will [...] vision concerning for stroke. Patient presented to [facility] in transfer for a STEMI after presenting [...] ??? Penicillins Pt doesn't remember reaction ??? Tiuzyvq-Iho-Evu Reductase Inhibitors Stiff neck, upset stomach, back [...] file Gets together: Not on file Attends gnosticism service: Not on file Active member of [...] L Elbow flexion 5/5 R, 5/5 L Inspector Wire Rope LE: 5/5 R, 5/5 L Hip flexion [...] PGY3 Neurology Resident 11/30/2019 Vascular Neurology Pager [phone] Standard [facility] Swallow Screen: This screen is to be [...] diet as medical provider deems appropriate. Consider MONUMENT STONECUTTER consult for full evaluation and diet recommendations. [...] Afib admitted s/p thrombolysis and Cath-Stent to [facility] who developed R sided visual [...] hours. Evan Mejia MD Department of Neurology [facility] Brief Op Note - Gretchen Yoon MD - 11/29/2019 8:38 PM EDT Brief Operative Note Patient Name: Angel Luis Salinas : [id number] MR#: [id number] Case Date: 11/29/2019 Surgeon: Surgeon(s) and Role: * Gretchen Yoon MD - Primary * Aidan Ward MD - Fellow Preoperative diagnosis: Inferior STEMI Postoperative diagnosis: Inferior STEMI Procedure(s) (LRB): CARDIAC CATHETERIZATION (N/A) Findings: Discrete 90% stenosis in the prox-to-mid RCA. Severe diffuse disease in the distal vessel. Discrete LCX stenosis in a non-culprit artery. S/P DESx3 in the vfnffszu-rg-vituow RCA. Aspiration thrombectomy performed, and integrellin bolus [...] are i n the results section. CT [place] W STAT 11/30/2019 4:36 Res [...] athologist Signature Potassium 3.9 3.5 - 5.0 [facility] mmol/L [facility] Comment: Please note: ??Patients with [...] Organization Address City/State/[place] [address] (ABNORMAL) Hemogram (12/08/2019 12:39 PM EDT) Analysis Performed At Patho logist Time Signature WBC 9.9 (H) 4.0 - 9.5 [facility] x[facility](3[facility] LABORATORY RBC 4.51 (L) 4.58 - [place] DOV 5.54 [facility] x10(6)/[facility] LABORATORY Hemoglobin 13.0 (L) 13.7 - [place] 16.5 gm/dL [facility] Hematocrit 40.5 40.5 - [place] 48.5 % [facility] MCV 89.8 82.9 - [facility] DOV 93.[address] [facility] LABORATORY MCH 28.8 27.5 - [place] 32.1 pg [facility] MCHC 32.1 32.0 - [place] 35.7 gm/dL [facility] Platelets 214 145 - 357 [facility] x10(3)/[facility] LABORATORY RDWSD 49.2 (H) 36.0 - [place] D[place] 45.0 [facility] LABORATORY RDWCV 15.1 (H) 11.4 - [place] 13.8 % [facility] MPV 12.1 7.6 - 12.9 [facility] nRBC % Auto 0.0 % [facility] LABORATORY nRBC Abs Auto 0.000 0.000 - [place] 0.000 [facility] x10(3)/[facility] LABORATORY Specimen Anatomical Collection Method Collection Time Receive d Time (Source) Location / / Volume Laterality Blood specimen 12/08/2019 12:39 0 (specimen) PM EDT 12:47 PM EDT Resulting Agency Comment Spec In Lab Gretchen Yoon MD HEMATOLOGY ORDERABLES Performing Organization Address City/State/ZIP Code Phon e Number [address] Hepatic Function Panel (12/08/2019 6:28 AM EDT) athologist Signature Total Protein 6.6 6.1 - 8.0 [facility] DOV gm/dL [facility] Albumin 3.2 3.2 - 5.2 [place] gm/dL [facility] AST 18 0 - 39 [place] unit/L [facility] ALT 13 0 - 55 [place] unit/L [facility] Alk Phos 64 40 - 130 [facility] DOV unit/L [facility] Total 0.4 0.2 - 1.3 [facility] Bilirubin mg/dL [facility] Bili, Direct 0.1 0.0 - 0.3 [facility] DOV mg/dL [facility] Specimen Anatomical Collection Method Collection Time Receive d Time (Source) Location / / Volume Laterality Blood specimen Venous Draw / 12/08/2019 6:28 AM 2019 6:36 (specimen) Unknown EDT AM EDT Resulting Agency Comment Spec In Lab Riki Stevens MD CHEMISTRY ORDERABLES Performing Organization Address City/[facility]/ZIP Code Phon e Number [address] (ABNORMAL) TSH (12/08/2019 6:28 AM EDT) athologist Signature TSH 5.27 (H) 0.27 - 4.20 [facility] DOV mcIU/mL [facility] Specimen Anatomical Collection Method Collection Time Receive d Time (Source) Location / / Volume Laterality Blood specimen Venous Draw / 12/08/2019 6:28 AM 2019 6:36 (specimen) Unknown EDT AM EDT Resulting Agency Comment Spec In Lab Darrell Glasgow MD CHEMISTRY ORDERABLES Performing Organization Address City/[facility]/ZIP Code Phon e Number [address] Potassium (12/08/2019 6:28 AM EDT) P athologist Signature Potassium 4.2 3.5 - 5.0 [facility] mmol/L [facility] Comment: Please note: ??Patients with [...] Organization Address City/State/ZIP Code Phon e Number [place] [id number] (ABNORMAL) Differential, Automated (12/08/2019 12:43 AM EDT) Patholo gist Method Time Signature Neutrophils % 60.7 % [facility]ORY Neutr Abs (ANC) 6.81 (H) 1.70 - [facility] 6.10 [facility] x10(3)/[facility] LABORATORY Lymphocytes % 23.4 % [facility] LABORATORY Lymphocytes Abs 2.6 0.9 - 3.2 [facility] x10(3)/[facility] LABORATORY Monocytes % 10.0 % [facility] LABORATORY Monocyte Abs 1.1 (H) 0.3 - 0.9 [facility] x10(3)/[facility] LABORATORY Eosinophils % 3.7 % [facility]OR[facility]ORY Eosinophils Abs 0.4 0.0 - 0.4 [facility] x10(3)/[facility] LABORATORY Basophils % 1.2 % [facility]OR[facility]ORY Basophils Abs 0.1 0.0 - 0.1 [facility] x10(3)/[facility] LABORATORY Immature Gran % 1.00 % [facility] Comment: Immature granulocytes(IG's)percentage an d absolute count will include metamyelocytes, myelocytes, and promyelo cytes. Blood smears from CBCs yielding IG's will be scanned manually for concor dance. If this scan disagrees with the automated IG or if promyelocytes are not ed, a manual differential will be performed. Pita Gran Abs 0.11 (H) 0.00 - 0.04 x10(3)/[facility] LABORATORY Specimen Anatomical Collection Method Collection Time Receive d Time (Source) Location / / Volume Laterality Blood specimen 12/08/2019 12:43 0 (specimen) AM EDT 12:52 AM EDT Resulting Agency Comment Spec In Lab Riki Stevens MD HEMATOLOGY ORDERABLES Performing Organization Address City/State/[place] [address] (ABNORMAL) Hemogram (12/08/2019 12:43 AM EDT) Analysis Performed At Patho logist Time Signature WBC 11.2 (H) 4.0 - 9.5 [facility] x10(3)/[facility] LABORATORY RBC 4.46 (L) 4.58 - [facility] DOV 5.54 [facility] x10(6)/[facility] LABORATORY Hemoglobin 13.1 (L) 13.7 - [facility] 16.5 gm/dL [facility] Hematocrit 40.5 40.5 - [facility] DOV 48.5 % [facility] MCV 90.8 82.9 - [facility] [facility] LABORATORY MCH 29.4 27.5 - [facility] DOV 32.1 pg [facility] MCHC 32.3 32.0 - [facility] DOV 35.7 gm/dL [facility] Platelets 215 145 - 357 [facility] x10(3)/[facility] LABORATORY RDWSD 49.8 (H) 36.0 - [facility] DOV 45.[address] [facility] LABORATORY RDWCV 15.2 (H) 11.4 - [facility] DOV 13.8 % [facility] MPV 12.3 7.6 - 12.9 [facility] LABORATORY nRBC % Auto 0.0 % [facility] LABORATORY nRBC Abs Auto 0.000 0.000 - [facility] DOV 0.000 [facility] x10(3)/[facility] LABORATORY Specimen Anatomical Collection Method Collection Time Receive d Time (Source) Location / / Volume Laterality Blood specimen 12/08/2019 12:43 0 (specimen) AM EDT 12:52 AM EDT Resulting Agency Comment Spec In Lab Riki Stevens MD HEMATOLOGY ORDERABLES Performing Organization Address City/State/ZIP Code Phon e Number [address] Magnesium (12/08/2019 12:43 AM EDT) athologist Signature Magnesium 1.01 0.69 - 1.07 [facility] mmol/L [facility] Specimen Anatomical Collection Method Collection Time Receive d Time (Source) Location / / Volume Laterality Blood specimen 12/08/2019 12:43 0 (specimen) AM EDT 12:52 AM EDT Resulting Agency Comment Spec In Lab Gretchen Yoon MD CHEMISTRY ORDERABLES Performing Organization Address City/State/[place] [address] (ABNORMAL) BMP w/fasting Glucose (12/08/2019 12:43 AM EDT) P athologist Signature Glucose 106 (H) 65 - 99 [facility] Fasting mg/dL [facility] Comment: ?Fasting* Glucose Interpretive C [...] of Diabetes Mellitus, Position Statement from the [place] [employer]. ??Diabete s Care, Volume 33, Supplement 1, Jul 2009 BUN 14 10 - 20 mg/dL [facility] DOV [facility] Creatinine 1.16 0.80 - 1.50 mg/dL [facility] Sodium 134 (L) 135 - 145 mmol/L [facility] Potassium 4.0 3.5 - 5.0 mmol/L [facility] Comment: Please note: ??Patients with WBC >100,00 0 may have falsely elevated Potassium levels. ??For accurate Potassium quantif ication in these patients send serum separator tube (gold top) for subsequent determinations. ??Contact the Clinical Chemistry Laboratory if there are any qu estions. Chloride 99 98 - 107 mmol/L [facility] CO2 19 (L) 22 - 31 mmol/L [facility] Anion Gap 16 (H) 5 - 15 mmol/L [facility] Calcium 8.9 8.5 - 10.5 mg/dL [facility] Estimated GFR 62 >=60 mL/min/1.73 m?? [facility] Comment: The eGFR was calculated using the CKD-EP I equation. As with all creatinine based estimates of kidney function, eGFR values calculated with the CKD-EPI equation are not accurate in patients wi th acute kidney failure, extremes of body mass or the acutely ill. http://[employer]/[facility]kf eGFR 72 >=60 mL/min/1.73 m?? [facility] Comment: The eGFR was calculated using the CKD-EP I equation. As with all creatinine based estimates of kidney function, eGFR values calculated with the CKD-EPI equation are not accurate in patients wi th acute kidney failure, extremes of body mass or the acutely ill. http://[employer]/[facility]kf Specimen Anatomical Collection Method Collection Time Receive d Time (Source) Location / / Volume Laterality Blood specimen 12/08/2019 12:43 0 (specimen) AM EDT 12:52 AM EDT Resulting Agency Comment Spec In Lab Gretchen Yoon MD CHEMISTRY ORDERABLES Performing Organization Address City/State/ZIP Code Phon e Number [place] [place] [id number] Heparin (unfractionated) Level (12/08/2019 12:43 AM EDT) athologist Signature Heparin UFH 0.60 IU/mL [facility] Comment: Guidelines for therapeutic unfractionate d [...] Organization Address City/State/[place] [address] Potassium (12/07/2019 8:39 PM EDT) athologist Signature Potassium 4.1 3.5 - 5.0 [facility] mmol/L [facility] Comment: Please note: ??Patients with [...] Organization Address City/State/ZIP Code Phon e Number [address] Potassium (12/07/2019 4:02 PM EDT) P athologist Signature Potassium 4.0 3.5 - 5.0 [facility] DOV mmol/L [facility] Comment: Please note: ??Patients with [...] Yoon MD CHEMISTRY ORDERABLES Performing Organization Address City/[facility]/[place] [address] (ABNORMAL) Hemogram (12/07/2019 4:02 PM EDT) Analysis Performed At Patho logist Time Signature WBC 17.4 (H) 4.0 - 9.5 [place] D[facility] x10(3)/[facility] LABORATORY RBC 4.58 4.58 - [place] DOV 5.54 [facility] x10(6)/[facility] LABORATORY Hemoglobin 13.5 (L) 13.7 - [place] DOV 16.5 gm/dL [facility] Hematocrit 40.8 40.5 - [place] [facility] 48.5 % [facility] MCV 89.1 82.9 - [place] DOV [address].1 [facility] LABORATORY MCH 29.5 27.5 - [place] DOV 32.1 pg [facility] MCHC 33.1 32.0 - [place] DOV 35.7 gm/dL [facility] Platelets 238 145 - 357 [place] [facility] x10(3)/[facility] LABORATORY RDWSD 48.8 (H) 36.0 - [place] DOV 45.0 [facility] LABORATORY RDWCV 15.0 (H) 11.4 - [facility] DOV 13.8 % [facility] MPV 12.2 7.6 - 12.[address] [facility] LABORATORY nRBC % Auto 0.0 % [facility] LABORATORY nRBC Abs Auto 0.000 0.000 - [place] MONAE 0.000 [facility] x10(3)/[facility] LABORATORY Specimen Anatomical Collection Method Collection Time Receive d Time (Source) Location / / Volume Laterality Blood specimen 12/07/2019 4:02 PM 020 4:08 (specimen) EDT PM EDT Resulting Agency Comment Spec In Lab Gretchen Yoon MD HEMATOLOGY ORDERABLES Performing Organization Address City/[facility]/[place] [address] EKG 12 Lead (12/07/2019 [...] (Bezet) Calculated P -12 degrees MUSE SYSTEM [place] Calculated R 10 degrees MUSE SYSTEM [place] Calculated T -138 degrees MUSE SYSTEM [place] INTERPRETATION Supraventricular tachycardia MUSE SYSTEM Low voltage [...] athologist Signature Potassium 4.2 3.5 - 5.0 [facility] mmol/L [facility] Comment: Please note: ??Patients with [...] Lagos MD CHEMISTRY ORDERABLES Performing Organization Address [facility] [place] [address] Heparin (unfractionated) Level (12/07/2019 11:43 AM EDT) athologist Signature Heparin UFH 0.59 IU/mL [facility] Comment: Guidelines for therapeutic unfractionate d [...] Lagos MD HEMATOLOGY ORDERABLES Performing Organization Address [facility] [place] [address] Heparin (unfractionated) Level (12/07/2019 5:20 AM EDT) P athologist Signature Heparin UFH 0.53 IU/mL [facility] Comment: Guidelines for therapeutic unfractionate d [...] Organization Address City/State/[place] [address] (ABNORMAL) Differential, Automated (12/07/2019 5:20 AM EDT) Patholo gist Method Time Signature Neutrophils % 62.4 % [facility] LABORATORY Neutr Abs (ANC) 5.46 1.70 - [facility] 6.10 [facility] x10(3)/[facility] LABORATORY Lymphocytes % 20.3 % [facility] LABORATORY Lymphocytes Abs 1.8 0.9 - 3.2 [facility] x10(3)/[facility] LABORATORY Monocytes % 11.0 % [facility] LABORATORY Monocyte Abs 1.0 (H) 0.3 - 0.9 [facility] x10(3)/[facility] LABORATORY Eosinophils % 4.5 % [facility] LABORATORY Eosinophils Abs 0.4 0.0 - 0.4 [facility] x10(3)/[facility] LABORATORY Basophils % 0.9 % [facility] LABORATORY Basophils Abs 0.1 0.0 - 0.1 [facility] x10(3)/[facility] LABORATORY Immature Gran % 0.90 % [facility] LABORATORY Comment: Immature granulocytes(IG's)percentage an d absolute count will include metamyelocytes, myelocytes, and promyelo cytes. Blood smears from CBCs yielding IG's will be scanned manually for concor dance. If this scan disagrees with the automated IG or if promyelocytes are not ed, a manual differential will be performed. Pita Gran Abs 0.08 (H) 0.00 - 0.04 x10(3)/[facility] LABORATORY Specimen Anatomical Collection Method Collection Time Receive d Time (Source) Location / / Volume Laterality Blood specimen 12/07/2019 5:20 AM 020 5:37 (specimen) EDT AM EDT Resulting Agency Comment Spec In Lab Riki Stevens MD HEMATOLOGY ORDERABLES Performing Organization Address City/State/[place] [address] (ABNORMAL) Hemogram (12/07/2019 5:20 AM EDT) Analysis Performed At Patho logist Time Signature WBC 8.7 4.0 - 9.5 [facility] x10(3)/[facility] LABORATORY RBC 4.20 (L) 4.58 - [facility] 5.54 [facility] x10(6)/[facility] LABORATORY Hemoglobin 12.3 (L) 13.7 - [facility] 16[facility] g[facility]/dL [facility] Hematocrit 37.4 (L) 40.5 - [facility] 48.5 % [facility] MCV 89.0 82.9 - [facility] 93.1 fL [facility] MCH 29.3 27.5 - [facility] 32.1 pg [facility] MCHC 32.9 32.0 - [place] MONAE 35.7 gm/dL [facility] Platelets 181 145 - 357 [facility] MONAE x10(3)/[facility] LABORATORY RDWSD 47.7 (H) 36.0 - MELINA MONAE 45.[address] [facility] LABORATORY RDWCV 14.8 (H) 11.4 - [place] MONAE 13.8 % [facility] MPV 12.3 7.6 - 12.[address] [facility] LABORATORY nRBC % Auto 0.0 % [facility] LABORATORY nRBC Abs Auto 0.000 0.000 - [place] MONAE 0.000 [facility] x10(3)/[facility] LABORATORY Specimen Anatomical Collection Method Collection Time Receive d Time (Source) Location / / Volume Laterality Blood specimen 12/07/2019 5:20 AM 020 5:37 (specimen) EDT AM EDT Resulting Agency Comment Spec In Lab Riki Stevens MD HEMATOLOGY ORDERABLES Performing Organization Address City/[facility]/ZIP Code Phon e Number [address] Magnesium (12/07/2019 5:20 AM EDT) P athologist Signature Magnesium 0.89 0.69 - 1.07 [facility]L [facility] Specimen Anatomical Collection Method Collection Time Receive d Time (Source) Location / / Volume Laterality Blood specimen 12/07/2019 5:20 AM 020 5:37 (specimen) EDT AM EDT Resulting Agency Comment Spec In Lab Gretchen Yoon MD CHEMISTRY ORDERABLES Performing Organization Address City/[facility]/ZIP Code Phon e Number [address] (ABNORMAL) BMP w/fasting Glucose (12/07/2019 5:20 AM EDT) P athologist Signature Glucose 100 (H) 65 - 99 [facility] Fasting mg/dL [facility] Comment: ?Fasting* Glucose Interpretive C [...] of Diabetes Mellitus, Position Statement from the [place] [employer]. ??Diabete s Care, Volume 33, Supplement 1, Jul 2009 BUN 14 10 - 20 mg/dL [facility] Creatinine 0.83 0.80 - 1.50 mg/dL [facility] Sodium 135 135 - 145 mmol/L [facility]OR[facility]ORY Potassium 3.8 3.5 - 5.0 mmol/L [facility] Comment: Please note: ??Patients with WBC >100,00 0 may have falsely elevated Potassium levels. ??For accurate Potassium quantif ication in these patients send serum separator tube (gold top) for subsequent determinations. ??Contact the Clinical Chemistry Laboratory if there are any qu estions. Chloride 101 98 - 107 mmol/L [facility] LABORATORY CO2 20 (L) 22 - 31 mmol/L [facility] LABORATORY Anion Gap 14 5 - 15 mmol/L [facility] Calcium 8.8 8.5 - 10.5 mg/dL [facility]OR[facility] Estimated GFR 87 >=60 mL/min/1.73 m?? [facility] LABOR[facility]ORY Comment: The eGFR was calculated using the CKD-EP I equation. As with all creatinine based estimates of kidney function, eGFR values calculated with the CKD-EPI equation are not accurate in patients wi th acute kidney failure, extremes of body mass or the acutely ill. http://[employer]/DHMCnkf eGFR 101 >=60 mL/min/1.73 m?? [facility] LABORATORY Comment: The eGFR was calculated using the CKD-EP I equation. As with all creatinine based estimates of kidney function, eGFR values calculated with the CKD-EPI equation are not accurate in patients wi th acute kidney failure, extremes of body mass or the acutely ill. [email or web address]DHMCnkf Specimen Anatomical Collection Method Collection Time Receive d Time (Source) Location / / Volume Laterality Blood specimen 12/07/2019 5:20 AM 020 5:37 (specimen) EDT AM EDT Resulting Agency Comment Spec In Lab Gretchen Yoon MD CHEMISTRY ORDERABLES Performing Organization Address [facility] [place] [address] Heparin (unfractionated) Level (12/06/2019 10:14 PM EDT) athologist Signature Heparin UFH 0.29 IU/mL [facility] Comment: Guidelines for therapeutic unfractionate d [...] Lagos MD HEMATOLOGY ORDERABLES Performing Organization Address [facility] [place] [address] Head wo Contrast [...] For questions regarding this report, please contact [facility] number below. ? Narrative 12/06/2019 10:06 PM [...] Signature WBC 10.4 (H) 4.0 - 9.5 [facility] LABORATORY RBC 4.32 (L) 4.58 - [facility] DOV 5.54 [facility] x10(6)/[facility] LABORATORY Hemoglobin 12.5 (L) 13.7 - [facility] 16.5 gm/dL [facility] Hematocrit 38.4 (L) 40.5 - [facility] 48.5 % [facility] MCV 88.9 82.9 - [facility] [facility] LABORATORY MCH 28.9 27.5 - [facility] DOV 32.1 pg [facility] MCHC 32.6 32.0 - [facility] 35.7 gm/dL [facility] Platelets 194 145 - 357 [facility] x10(3)/[facility] LABORATORY RDWSD 46.9 (H) 36.0 - [facility] [facility] LABORATORY RDWCV 14.6 (H) 11.4 - [facility] 13.8 % [facility] MPV 11.9 7.6 - 12.9 [facility] LABORATORY nRBC % Auto 0.0 % [facility] LABORATORY nRBC Abs Auto 0.000 0.000 - [facility] DOV 0.000 [facility] x10(3)/[facility] LABORATORY Specimen Anatomical Collection Method Collection Time Receive d Time (Source) Location / / Volume Laterality Blood specimen 12/06/2019 4:20 PM 020 4:31 (specimen) EDT PM EDT Resulting Agency Comment Spec In Lab Gretchen Yoon MD HEMATOLOGY ORDERABLES Performing Organization Address City/State/[place] [address] Heparin (unfractionated) Level (12/06/2019 4:20 PM EDT) P athologist Signature Heparin UFH 0.30 IU/mL [facility] Comment: Guidelines for therapeutic unfractionate d [...] Organization Address City/State/[place] [address] Heparin (unfractionated) Level (12/06/2019 10:02 AM EDT) athologist Signature Heparin UFH <0.04 IU/mL [facility] Comment: Guidelines for therapeutic unfractionate d [...] Lagos MD HEMATOLOGY ORDERABLES Performing Organization Address City/[facility]/ZIP Code Phon e Number [address] Magnesium (12/06/2019 3:36 AM EDT) P athologist Signature Magnesium 0.86 0.69 - 1.07 [facility] mmol/L [facility] Specimen Anatomical Collection Method Collection Time Receive d Time (Source) Location / / Volume Laterality Blood specimen 12/06/2019 3:36 AM 020 3:45 (specimen) EDT AM EDT Resulting Agency Comment Spec In Lab Gretchen Yoon MD CHEMISTRY ORDERABLES Performing Organization Address City/[facility]/ZIP Code Phon e Number [address] (ABNORMAL) BMP w/fasting Glucose (12/06/2019 3:36 AM EDT) P athologist Signature Glucose 103 (H) 65 - 99 [facility] Fasting mg/dL [facility] Comment: ?Fasting* Glucose Interpretive C [...] of Diabetes Mellitus, Position Statement from the [place] [employer]. ??Diabete s Care, Volume 33, Supplement 1, Jul 2009 BUN 20 10 - 20 mg/dL [facility] Creatinine 0.88 0.80 - 1.50 mg/dL [facility] Sodium 136 135 - 145 mmol/L [facility] Potassium 4.0 3.5 - 5.0 mmol/L [facility] Comment: Please note: ??Patients with WBC >100,00 0 may have falsely elevated Potassium levels. ??For accurate Potassium quantif ication in these patients send serum separator tube (gold top) for subsequent determinations. ??Contact the Clinical Chemistry Laboratory if there are any qu estions. Chloride 103 98 - 107 mmol/L [facility] LABORATORY CO2 19 (L) 22 - 31 mmol/L [facility] LABORATORY Anion Gap 14 5 - 15 mmol/L [facility] Calcium 8.7 8.5 - 10.5 mg/dL [facility] Estimated GFR 85 >=60 mL/min/1.73 m?? [facility] Comment: The eGFR was calculated using the CKD-EP I equation. As with all creatinine based estimates of kidney function, eGFR values calculated with the CKD-EPI equation are not accurate in patients wi th acute kidney failure, extremes of body mass or the acutely ill. http://[employer]/MCnkf eGFR 99 >=60 mL/min/1.73 m?? [facility] LABORATORY Comment: The eGFR was calculated using the CKD-EP I equation. As with all creatinine based estimates of kidney function, eGFR values calculated with the CKD-EPI equation are not accurate in patients wi th acute kidney failure, extremes of body mass or the acutely ill. http://[employer]/DHMCnkf Specimen Anatomical Collection Method Collection Time Receive d Time (Source) Location / / Volume Laterality Blood specimen 12/06/2019 3:36 AM 020 3:45 (specimen) EDT AM EDT Resulting Agency Comment Spec In Lab Gretchen Yoon MD CHEMISTRY ORDERABLES Performing Organization Address City/State/ZIP Code Phon e Number [address] (ABNORMAL) Hemogram (12/06/2019 3:36 AM EDT) Analysis Performed At Patho logist Time Signature WBC 9.2 4.0 - 9.5 [facility] LABORATORY RBC 3.99 (L) 4.58 - [place] DOV 5.54 [facility] x10(6)/[facility] LABORATORY Hemoglobin 11.9 (L) 13.7 - [facility] 16.5 gm/dL [facility] Hematocrit 35.5 (L) 40.5 - [facility] 48.5 % [facility] MCV 89.0 82.9 - [facility] 93.[address] [facility] LABORATORY MCH 29.8 27.5 - [place] DOV 32.1 pg [facility] MCHC 33.5 32.0 - [place] DOV 35.7 gm/dL [facility] Platelets 164 145 - 357 [facility] x10(3)/[facility] LABORATORY RDWSD 47.6 (H) 36.0 - [place] DOV 45.0 [facility] LABORATORY RDWCV 14.7 (H) 11.4 - [facility] 13.8 % [facility] MPV 11.9 7.6 - 12.9 [facility] LABORATORY nRBC % Auto 0.0 % [facility] LABORATORY nRBC Abs Auto 0.000 0.000 - [facility] DOV 0.000 [facility] x10(3)/[facility] LABORATORY Specimen Anatomical Collection Method Collection Time Receive d Time (Source) Location / / Volume Laterality Blood specimen 12/06/2019 3:36 AM 020 3:45 (specimen) EDT AM EDT Resulting Agency Comment Spec In Lab Gretchen Yoon MD HEMATOLOGY ORDERABLES Performing Organization Address City/[facility]/ZIP Code Phon e Number [address] (ABNORMAL) Differential, Automated (12/05/2019 10:52 PM EDT) Patholo gist Method Time Signature Neutrophils % 61.9 % [facility] LABORATORY Neutr Abs (ANC) 6.02 1.70 - [facility] 6.10 [facility] x10(3)/[facility] LABORATORY Lymphocytes % 22.4 % [facility] LABORATORY Lymphocytes Abs 2.2 0.9 - 3.2 [facility] x10(3)/[facility] LABORATORY Monocytes % 10.4 % [facility] LABORATORY Monocyte Abs 1.0 (H) 0.3 - 0.9 [facility] x10(3)/[facility] LABORATORY Eosinophils % 4.1 % [facility] LABORATORY Eosinophils Abs 0.4 0.0 - 0.4 [facility] x10(3)/[facility] LABORATORY Basophils % 0.7 % [facility] LABORATORY Basophils Abs 0.1 0.0 - 0.1 [facility] x10(3)/[facility] LABORATORY Immature Gran % 0.50 % [facility] LABORATORY Comment: Immature granulocytes(IG's)percentage an d absolute count will include metamyelocytes, myelocytes, and promyelo cytes. Blood smears from CBCs yielding IG's will be scanned manually for concor dance. If this scan disagrees with the automated IG or if promyelocytes are not ed, a manual differential will be performed. Pita Gran Abs 0.05 (H) 0.00 - 0.04 x10(3)/[facility] LABORATORY Specimen Anatomical Collection Method Collection Time Receive d Time (Source) Location / / Volume Laterality Blood specimen 12/05/2019 10:52 0 (specimen) PM EDT 10:59 PM EDT Resulting Agency Comment Spec In Lab Mandi Barrera MD HEMATOLOGY ORDERABLES Performing Organization Address City/State/[place] [address] (ABNORMAL) Hemogram (12/05/2019 10:52 PM EDT) Analysis Performed At [facility] logist Time Signature WBC 9.7 (H) 4.0 - 9.5 [facility] x10(3)/[facility] LABORATORY RBC 4.07 (L) 4.58 - [place] DOV 5.54 [facility] x10(6)/[facility] LABORATORY Hemoglobin 11.9 (L) 13.7 - [place] 16.5 gm/dL [facility] Hematocrit 36.4 (L) 40.5 - [place] 48.5 % [facility] MCV 89.4 82.9 - [facility] [facility] LABORATORY MCH 29.2 27.5 - [place] DOV 32.1 pg [facility] MCHC 32.7 32.0 - [place] DOV 35.7 gm/dL [facility] Platelets 167 145 - 357 [facility] x10(3)/[facility] LABORATORY RDWSD 47.7 (H) 36.0 - [facility] [facility] LABORATORY RDWCV 14.6 (H) 11.4 - [facility] 13.8 % [facility] MPV 12.1 7.6 - 12.9 [facility] LABORATORY nRBC % Auto 0.0 % [facility] LABORATORY nRBC Abs Auto 0.000 0.000 - [facility] 0.000 [facility] x10(3)/[facility] LABORATORY Specimen Anatomical Collection Method Collection Time Receive d Time (Source) Location / / Volume Laterality Blood specimen 12/05/2019 10:52 0 (specimen) PM EDT 10:59 PM EDT Resulting Agency Comment Spec In Lab Mandi Barrera MD HEMATOLOGY ORDERABLES Performing Organization Address City/State/[place] [address] Heparin (unfractionated) Level (12/05/2019 10:52 PM EDT) P athologist Signature Heparin UFH <0.04 IU/mL [facility]ORATORY Comment: Guidelines for therapeutic unfractionate d [...] Organization Address City/State/[place] [address] MRI Brain wwo Contrast [...] Time Signature WBC 8.7 4.0 - 9.5 [facility] x10(3)/[facility] LABORATORY RBC 4.17 (L) 4.58 - [facility] 5.54 [facility] x10(6)/[facility] LABORATORY Hemoglobin 12.4 (L) 13.7 - [facility] 16.5 gm/dL [facility] Hematocrit 37.0 (L) 40.5 - [facility] 48.5 % [facility] MCV 88.7 82.9 - [facility] [facility] LABORATORY MCH 29.7 27.5 - [facility] 32.1 pg [facility] MCHC 33.5 32.0 - [facility] 35.7 gm/dL [facility] Platelets 173 145 - 357 [facility] x10(3)/[facility] LABORATORY RDWSD 47.3 (H) 36.0 - [facility] [facility] LABORATORY RDWCV 14.6 (H) 11.4 - [facility] 13.8 % [facility] MPV 12.1 7.6 - 12.9 [facility] LABORATORY nRBC % Auto 0.0 % [facility] LABORATORY nRBC Abs Auto 0.000 0.000 - [facility] 0.000 [facility] x10(3)/[facility] LABORATORY Specimen Anatomical Collection Method Collection Time Receive d Time (Source) Location / / Volume Laterality Blood specimen 12/05/2019 1:00 PM 020 1:13 (specimen) EDT PM EDT Resulting Agency Comment Spec In Lab Gretchen Yoon MD HEMATOLOGY ORDERABLES Performing Organization Address City/State/[place] [address] EKG 12 Lead (12/05/2019 10:52 AM EDT) Component Value Ref Range Test Analysis Performed Pathologis t Method Time At Signature Ventricular rate 72 BPM MUSE SYSTEM Atrial Rate 72 BPM MUSE SYSTEM P-R Interval 138 ms MUSE SYSTEM QRS Duration 96 ms MUSE SYSTEM Q-T Interval 396 ms MUSE SYSTEM QTC Calculated 433 ms MUSE SYSTEM (Bezet) Calculated P [place] 65 degrees MUSE SYSTEM Calculated R [place] 13 degrees MUSE SYSTEM Calculated T [place] 0 degrees MUSE SYSTEM INTERPRETATION Sinus rhythm Occasional Premature ventricular complexe s MUSE SYSTEM Possible Inferior infarct (cited on or before 29-NOV-2019) Abnormal ECG When compared with ECG of 04-DEC-2019 10:43, Sinus rhythm has replaced Atrial fibrillation Vent. rate has decreased BY ??86 BPM Confirmed by MD Ceja Daniel ([id number]) on 12/05/2019 3:55:22 PM Specimen Anatomical Collection Method Collection Time Receive d Time (Source) Location / / Volume Laterality 12/05/2019 10:52 12/05/2019 3:55 AM EDT PM EDT Paris Lagos MD ECG ORDERABLES Performing Organization Address City/State/ZIP Code Phon e Number MUSE SYSTEM Duplex Study for DVT, Bilat legs (12/05/2019 7:00 AM EDT) Component Value Ref Test Analysis Performed At [facility] Range Method Time Signature VB Text Department: Vascular Surgery Lab VASCUBASE Report Patient: [id number] (ANGEL LUIS SALINAS) CPT: 18521 ICD10: I26.99 Referring Physician: GRETCHEN YOON ?? [...] athologist Signature Magnesium 0.87 0.69 - 1.07 [facility] [facility] mmol/L [facility] Specimen Anatomical Collection Method Collection Time Receive d Time (Source) Location / / Volume Laterality Blood specimen 12/05/2019 4:18 AM 020 4:31 (specimen) EDT AM EDT Resulting Agency Comment Spec In Lab Gretchen Yoon MD CHEMISTRY ORDERABLES Performing Organization Address City/[facility]/[place]IP [facility] [place] [address] (ABNORMAL) BMP w/fasting Glucose (12/05/2019 4:18 AM EDT) P athologist Signature Glucose 104 (H) 65 - 99 [facility] Fasting mg/dL [facility] Comment: ?Fasting* Glucose Interpretive C [...] of Diabetes Mellitus, Position Statement from the [place] [employer]. ??Diabete s Care, Volume 33, Supplement 1, Jul 2009 BUN 21 (H) 10 - 20 mg/dL [facility] Creatinine 1.02 0.80 - 1.50 mg/dL [facility] Sodium 136 135 - 145 mmol/L [facility] Potassium 3.9 3.5 - 5.0 mmol/L [facility] Comment: Please note: ??Patients with WBC >100,00 0 may have falsely elevated Potassium levels. ??For accurate Potassium quantif ication in these patients send serum separator tube (gold top) for subsequent determinations. ??Contact the Clinical Chemistry Laboratory if there are any qu estions. Chloride 103 98 - 107 mmol/L [facility] CO2 21 (L) 22 - 31 mmol/L [facility] Anion Gap 12 5 - 15 mmol/L [facility] Calcium 8.8 8.5 - 10.5 mg/dL [facility] Estimated GFR 73 >=60 mL/min/1.73 m?? [facility] Comment: The eGFR was calculated using the CKD-EP I equation. As with all creatinine based estimates of kidney function, eGFR values calculated with the CKD-EPI equation are not accurate in patients wi th acute kidney failure, extremes of body mass or the acutely ill. http://[employer]/[facility] [email or web address] eGFR 84 >=60 mL/min/1.73 m?? [facility] Comment: The eGFR was calculated using the CKD-EP I equation. As with all creatinine based estimates of kidney function, eGFR values calculated with the CKD-EPI equation are not accurate in patients wi th acute kidney failure, extremes of body mass or the acutely ill. http://[employer]/[facility] [email or web address] Specimen Anatomical Collection Method Collection Time Receive d Time (Source) Location / / Volume Laterality Blood specimen 12/05/2019 4:18 AM 020 4:31 (specimen) EDT AM EDT Resulting Agency Comment Spec In Lab Gretchen Yoon MD CHEMISTRY ORDERABLES Performing Organization Address City/State/[place] [address] (ABNORMAL) Hemogram (12/05/2019 4:18 AM EDT) Analysis Performed At Patho logist Time Signature WBC 8.6 4.0 - 9.5 [facility] x10(3)/[facility] LABORATORY RBC 4.28 (L) 4.58 - MELINA DOV 5.54 [facility] x10(6)/[facility] LABORATORY Hemoglobin 12.4 (L) 13.7 - [facility] 16.5 gm/dL [facility] Hematocrit 37.3 (L) 40.5 - [facility] 48.5 % [facility] MCV 87.1 82.9 - [facility] [facility] LABORATORY MCH 29.0 27.5 - [facility] 32.1 pg [facility] MCHC 33.2 32.0 - [facility] 35.7 gm/dL [facility] Platelets 163 145 - 357 [facility] x10(3)/[facility] LABORATORY RDWSD 46.4 (H) 36.0 - [facility] [facility] LABORATORY RDWCV 14.4 (H) 11.4 - [facility] 13.8 % [facility] MPV 11.7 7.6 - 12.9 [facility] LABORATORY nRBC % Auto 0.0 % [facility] LABORATORY nRBC Abs Auto 0.000 0.000 - [facility] 0.000 [facility] x10(3)/[facility] LABORATORY Specimen Anatomical Collection Method Collection Time Receive d Time (Source) Location / / Volume Laterality Blood specimen 12/05/2019 4:18 AM 020 4:31 (specimen) EDT AM EDT Resulting Agency Comment Spec In Lab Gretchen Yoon MD HEMATOLOGY ORDERABLES Performing Organization Address City/State/[place] [address] Cardiac for Morphology [...] For questions regarding this report, please contact [facility] number below. ? Narrative 12/04/2019 6:16 PM [...] from neck/greatest puja meter to back wall: YEMENI 91, CAU 13: ??19 mm CORTES ??1, [...] from neck/greatest puja meter to back wall: YEMENI 91, CAU 13: 19 mm CORTES 1, [...] WBC 8.9 4.0 - 9.5 MELINA DOV x10(3)/[facility] LABORATORY RBC 4.69 4.58 - MELINA DOV 5.54 [facility] x10(6)/[facility] LABORATORY Hemoglobin 13.5 (L) 13.7 - [place] DOV 16.5 gm/dL [facility] Hematocrit 41.7 40.5 - [place] DOV 48.5 % [facility] MCV 88.9 82.9 - [place] DOV 93.1 fL [facility] MCH 28.8 27.5 - M[place] DOV 32.1 pg [facility] MCHC 32.4 32.0 - [place] DOV 35.7 gm/dL [facility] Platelets 196 145 - 357 MELINA DOV x10(3)/[facility] LABORATORY RDWSD 46.7 (H) 36.0 - MELINA MONAE [address] [facility] LABORATORY RDWCV 14.5 (H) 11.4 - MELINA MONAE 13.8 % [facility] MPV 12.1 7.6 - 12.[address] [facility] LABORATORY nRBC % Auto 0.0 % [facility]ORATORY nRBC Abs Auto 0.000 0.000 - M[place]INA MONAE 0.000 [facility] x10(3)/[facility]ORATORY Specimen Anatomical Collection Method Collection Time Receive d Time (Source) Location / / Volume Laterality Blood specimen 12/04/2019 12:55 0 1:06 (specimen) PM EDT PM EDT Resulting Agency Comment Spec In Lab Gretchen Yoon MD HEMATOLOGY ORDERABLES Performing Organization Address City/[facility]/[place] [address] EKG 12 Lead (12/04/2019 10:43 AM EDT) Component Value Ref Range Test Analysis Performed Pathologis t Method Time At Signature Ventricular rate 158 BPM MUSE SYSTEM Atrial Rate 102 BPM MUSE SYSTEM QRS Duration 92 ms MUSE SYSTEM Q-T Interval 294 ms MUSE SYSTEM QTC Calculated 476 ms MUSE SYSTEM (Bezet) Calculated R [place] 17 degrees MUSE SYSTEM Calculated T [place] 90 degrees MUSE SYSTEM INTERPRETATION Atrial fibrillation with rapid ventricular response MUSE SYSTEM Possible Inferior infarct (cited on or before 29-NOV-2019) Abnormal ECG When compared with ECG of 30-NOV-2019 21:07, Atrial fibrillation has replaced Sinus rhythm Vent. rate has increased BY ??65 BPM Confirmed by MD Brenna, Faustino ([id number]) on 12/05/2019 8:59:44 AM Specimen Anatomical Collection Method Collection Time Receive d Time (Source) Location / / Volume Laterality 12/04/2019 10:43 12/05/2019 8:59 AM EDT AM EDT Gretchen Yoon MD ECG ORDERABLES Performing Organization Address City/State/ZIP Code Phon e Number MUSE SYSTEM (ABNORMAL) Magnesium (12/04/2019 4:28 AM EDT) P athologist Signature Magnesium 1.17 (H) 0.69 - 1.07 [facility] mmol/L [facility] Specimen Anatomical Collection Method Collection Time Receive d Time (Source) Location / / Volume Laterality Blood specimen 12/04/2019 4:28 AM 020 4:40 (specimen) EDT AM EDT Resulting Agency Comment Spec In Lab Gretchen Yoon MD CHEMISTRY ORDERABLES Performing Organization Address City/State/[place] [address] (ABNORMAL) BMP w/fasting Glucose (12/04/2019 4:28 AM EDT) athologist Signature Glucose 108 (H) 65 - 99 [facility] Fasting mg/dL [facility] Comment: ?Fasting* Glucose Interpretive C [...] of Diabetes Mellitus, Position Statement from the [place] [employer]. ??Diabete s Care, Volume 33, Supplement 1, Jul 2009 BUN 19 10 - 20 mg/dL [facility] Creatinine 0.89 0.80 - 1.50 mg/dL [facility] Sodium 135 135 - 145 mmol/L [facility] Potassium 4.2 3.5 - 5.0 mmol/L [facility] Comment: Please note: ??Patients with WBC >100,00 0 may have falsely elevated Potassium levels. ??For accurate Potassium quantif ication in these patients send serum separator tube (gold top) for subsequent determinations. ??Contact the Clinical Chemistry Laboratory if there are any qu estions. Chloride 104 98 - 107 mmol/L [facility] CO2 19 (L) 22 - 31 mmol/L [facility] Anion Gap 12 5 - 15 mmol/L [facility] Calcium 8.5 8.5 - 10.5 mg/dL [facility] Estimated GFR 85 >=60 mL/min/1.73 m?? [facility] Comment: The eGFR was calculated using the CKD-EP I equation. As with all creatinine based estimates of kidney function, eGFR values calculated with the CKD-EPI equation are not accurate in patients wi th acute kidney failure, extremes of body mass or the acutely ill. http://[employer]/[facility] [email or web address] eGFR 98 >=60 mL/min/1.73 m?? [facility] Comment: The eGFR was calculated using the CKD-EP I equation. As with all creatinine based estimates of kidney function, eGFR values calculated with the CKD-EPI equation are not accurate in patients wi th acute kidney failure, extremes of body mass or the acutely ill. http://[employer]/[facility] [email or web address] Specimen Anatomical Collection Method Collection Time Receive d Time (Source) Location / / Volume Laterality Blood specimen 12/04/2019 4:28 AM 020 4:40 (specimen) EDT AM EDT Resulting Agency Comment Spec In Lab Gretchen Yoon MD CHEMISTRY ORDERABLES Performing Organization Address City/State/[place] [address] (ABNORMAL) Hemogram (12/04/2019 4:28 AM EDT) Analysis Performed At Patho logist Time Signature WBC 7.8 4.0 - 9.5 [facility] x10(3)/[facility] LABORATORY RBC 4.10 (L) 4.58 - [facility] 5.54 [facility] x10(6)/[facility] LABORATORY Hemoglobin 12.0 (L) 13.7 - [facility] 16.5 gm/dL [facility] Hematocrit 36.5 (L) 40.5 - [facility] 48.5 % [facility] MCV 89.0 82.9 - [facility] 93.1 fL [facility] MCH 29.3 27.5 - MELINA MONAE 32.1 pg [facility] MCHC 32.9 32.0 - MELINA MONAE 35.7 gm/dL [facility] Platelets 151 145 - 357 MELINA VILLANUEVACK x10(3)/[facility] LABORATORY RDWSD 46.9 (H) 36.0 - MELINA MONAE [address] [facility] LABORATORY RDWCV 14.4 (H) 11.4 - MELINA MONAE 13.8 % [facility] MPV 12.2 7.6 - 12.9 MELINA MNOAE fL [facility] nRBC % Auto 0.0 % [facility] nRBC Abs Auto 0.000 0.000 - MELINA MONAE 0.000 [facility] x10(3)/[facility] Specimen Anatomical Collection Method Collection Time Receive d Time (Source) Location / / Volume Laterality Blood specimen 12/04/2019 4:28 AM 020 4:40 (specimen) EDT AM EDT Resulting Agency Comment Spec In Lab Gretchen Yoon MD HEMATOLOGY ORDERABLES Performing Organization Address City/[facility]/ZIP Code Phon e Number [address] Potassium (12/03/2019 7:55 PM EDT) athologist Signature Potassium 3.9 3.5 - 5.0 [facility] Comment: Please note: ??Patients with [...] Yoon MD CHEMISTRY ORDERABLES Performing Organization Address City/[facility]/[place]IP [facility] [place] [address] Potassium (12/03/2019 1:57 PM EDT) athologist Signature Potassium 3.7 3.5 - 5.0 [facility]/L [facility] Comment: Please note: ??Patients with [...] Organization Address City/State/[place] [address] (ABNORMAL) Hemogram (12/03/2019 1:57 PM EDT) Analysis Performed At Patho logist Time Signature WBC 8.8 4.0 - 9.5 MELINA DOV x10(3)/[facility] LABORATORY RBC 4.27 (L) 4.58 - [place] DOV 5.54 [facility] x10(6)/[facility] Hemoglobin 12.5 (L) 13.7 - [place] DOV 16.5 gm/dL [facility] Hematocrit 37.5 (L) 40.5 - [place] DOV 48.5 % [facility] MCV 87.8 82.9 - MELINA DOV 93.[address] [facility] LABORATORY MCH 29.3 27.5 - [place] DOV 32.1 pg [facility] MCHC 33.3 32.0 - [place] DOV 35.7 gm/dL [facility] Platelets 158 145 - 357 MELINA DOV x10(3)/[facility] LABORATORY RDWSD 46.9 (H) 36.0 - MELINA DOV 45.[address] [facility] LABORATORY RDWCV 14.5 (H) 11.4 - [place] DOV 13.8 % [facility] MPV 12.2 7.6 - 12.[address] [facility] LABORATORY nRBC % Auto 0.0 % [facility] nRBC Abs Auto 0.000 0.000 - [facility] 0.000 [facility] x10(3[facility]ORY Specimen Anatomical Collection Method Collection Time Receive d Time (Source) Location / / Volume Laterality Blood specimen 12/03/2019 1:57 PM 020 2:21 (specimen) EDT PM EDT Resulting Agency Comment Spec In Lab Gretchen Yoon MD HEMATOLOGY ORDERABLES Performing Organization Address City/State/ZIP Code Phon e Number [address] Magnesium (12/03/2019 4:02 AM EDT) P athologist Signature Magnesium 0.79 0.69 - 1.07 [facility] mmol/L [facility] Specimen Anatomical Collection Method Collection Time Receive d Time (Source) Location / / Volume Laterality Blood specimen 12/03/2019 4:02 AM 020 4:16 (specimen) EDT AM EDT Resulting Agency Comment Spec In Lab Gretchen Yoon MD CHEMISTRY ORDERABLES Performing Organization Address City/State/[place] [address] (ABNORMAL) BMP w/fasting Glucose (12/03/2019 4:02 AM EDT) P athologist Signature Glucose 100 (H) 65 - 99 [facility] Fasting mg/dL [facility] Comment: ?Fasting* Glucose Interpretive C [...] of Diabetes Mellitus, Position Statement from the [place] [employer]. ??Diabete s Care, Volume 33, Supplement 1, Jul 2009 BUN 17 10 - 20 mg/dL [facility] Creatinine 0.95 0.80 - 1.50 mg/dL [facility] Sodium 136 135 - 145 mmol/L [facility] Potassium 3.4 (L) 3.5 - 5.0 mmol/L [facility] Comment: Please note: ??Patients with WBC >100,00 0 may have falsely elevated Potassium levels. ??For accurate Potassium quantif ication in these patients send serum separator tube (gold top) for subsequent determinations. ??Contact the Clinical Chemistry Laboratory if there are any qu estions. Chloride 103 98 - 107 mmol/L [facility] CO2 18 (L) 22 - 31 mmol/L [facility] Anion Gap 15 5 - 15 mmol/L [facility] Calcium 8.3 (L) 8.5 - 10.5 mg/dL [facility] Estimated GFR 79 >=60 mL/min/1.73 m?? [facility] Comment: The eGFR was calculated using the CKD-EP I equation. As with all creatinine based estimates of kidney function, eGFR values calculated with the CKD-EPI equation are not accurate in patients wi th acute kidney failure, extremes of body mass or the acutely ill. http://[employer]/[facility] [email or web address] eGFR 92 >=60 mL/min/1.73 m?? [facility] Comment: The eGFR was calculated using the CKD-EP I equation. As with all creatinine based estimates of kidney function, eGFR values calculated with the CKD-EPI equation are not accurate in patients wi th acute kidney failure, extremes of body mass or the acutely ill. [email or web address] Specimen Anatomical Collection Method Collection Time Receive d Time (Source) Location / / Volume Laterality Blood specimen 12/03/2019 4:02 AM 020 4:16 (specimen) EDT AM EDT Resulting Agency Comment Spec In Lab Gretchen Yoon MD CHEMISTRY ORDERABLES Performing Organization Address City/State/[place] [address] (ABNORMAL) Hemogram (12/03/2019 4:02 AM EDT) Analysis Performed At Patho logist Time Signature WBC 9.1 4.0 - 9.5 [facility] x10(3)/[facility] LABORATORY RBC 4.01 (L) 4.58 - MELINA MARSHDOV 5.54 [facility] x10(6)/[facility]ORATORY Hemoglobin 11.8 (L) 13.7 - [facility] 16.[facility] gm/dL [facility] Hematocrit 35.6 (L) 40.5 - [facility] 48.5 % [facility] MCV 88.8 82.9 - [facility] [facility] LABORATORY MCH 29.4 27.5 - [facility] 32.1 pg [facility] MCHC 33.1 32.0 - [facility] 35.7 gm/dL [facility] Platelets 130 (L) 145 - 357 [facility] x10(3)/[facility]ORATORY RDWSD 46.6 (H) 36.0 - [facility] [facility]ORY RDWCV 14.4 (H) 11.4 - [facility] 13.8 % [facility] MPV 12.4 7.6 - 12.9 [facility] LABORATORY nRBC % Auto 0.0 % [facility] nRBC Abs Auto 0.000 0.000 - [facility] 0.000 [facility] x10(3)/[facility]ORY Specimen Anatomical Collection Method Collection Time Receive d Time (Source) Location / / Volume Laterality Blood specimen 12/03/2019 4:02 AM 020 4:16 (specimen) EDT AM EDT Resulting Agency Comment Spec In Lab Gretchen Yoon MD HEMATOLOGY ORDERABLES Performing Organization Address City/State/[place] [address] XR Chest One View [...] Signature WBC 10.6 (H) 4.0 - 9.5 [facility]ORATORY RBC 4.00 (L) 4.58 - [facility] DOV 5.54 [facility] x10(6)/[facility]ATORY Hemoglobin 11.9 (L) 13.7 - [facility] 16.5 gm/dL [facility] Hematocrit 35.7 (L) 40.5 - [facility] 48.5 % [facility] MCV 89.3 82.9 - [facility] [facility] LABORATORY MCH 29.8 27.5 - [facility] 32.1 pg [facility] MCHC 33.3 32.0 - [facility] 35.7 gm/dL [facility] Platelets 120 (L) 145 - 357 [facility] x10(3)/[facility] LABORATORY RDWSD 47.5 (H) 36.0 - [facility] [facility] LABORATORY RDWCV 14.6 (H) 11.4 - [facility] 13.8 % [facility] MPV 12.0 7.6 - 12.9 [facility] LABORATORY nRBC % Auto 0.0 % [facility]OR[facility]ORY nRBC Abs Auto 0.000 0.000 - [facility] 0.000 [facility] x10(3)/[facility] LABORATORY Specimen Anatomical Collection Method Collection Time Receive d Time (Source) Location / / Volume Laterality Blood specimen 12/02/2019 12:50 0 1:22 (specimen) PM EDT PM EDT Resulting Agency Comment Spec In Lab Gretchen Yoon MD HEMATOLOGY ORDERABLES Performing Organization Address City/State/[place] [address] Blue Tube HOLD (12/02/2019 4:55 AM EDT) P athologist Signature Blue Hold Sample in [facility] lab. [facility] Specimen Anatomical Collection Method Collection Time Receive d Time (Source) Location / / Volume Laterality Blood specimen Venous Draw / 12/02/2019 4:55 AM 2019 5:03 (specimen) Unknown EDT AM EDT Darrell Glasgow MD HEMATOLOGY ORDERABLES Performing Organization Address City/State/ZIP Code Phon e Number [address] Magnesium (12/02/2019 4:55 AM EDT) athologist Signature Magnesium 0.85 0.69 - 1.07 [facility] mmol/L [facility] Specimen Anatomical Collection Method Collection Time Receive d Time (Source) Location / / Volume Laterality Blood specimen 12/02/2019 4:55 AM 020 5:02 (specimen) EDT AM EDT Resulting Agency Comment Spec In Lab Gretchen Yoon MD CHEMISTRY ORDERABLES Performing Organization Address City/State/[place] [address] (ABNORMAL) BMP w/fasting Glucose (12/02/2019 4:55 AM EDT) athologist Signature Glucose 114 (H) 65 - 99 [facility] Fasting mg/dL [facility] Comment: ?Fasting* Glucose Interpretive C [...] of Diabetes Mellitus, Position Statement from the [place] [employer]. ??Diabete s Care, Volume 33, Supplement 1, Jul 2009 BUN 13 10 - 20 mg/dL [facility] Creatinine 0.93 0.80 - 1.50 mg/dL [facility] Sodium 135 135 - 145 mmol/L [facility] Potassium 3.7 3.5 - 5.0 mmol/L [facility] Comment: Please note: ??Patients with WBC >100,00 0 may have falsely elevated Potassium levels. ??For accurate Potassium quantif ication in these patients send serum separator tube (gold top) for subsequent determinations. ??Contact the Clinical Chemistry Laboratory if there are any qu estions. Chloride 105 98 - 107 mmol/L [facility] CO2 18 (L) 22 - 31 mmol/L [facility] Anion Gap 12 5 - 15 mmol/L [facility] Calcium 8.1 (L) 8.5 - 10.5 mg/dL [facility] Estimated GFR 81 >=60 mL/min/1.73 m?? [facility] Comment: The eGFR was calculated using the CKD-EP I equation. As with all creatinine based estimates of kidney function, eGFR values calculated with the CKD-EPI equation are not accurate in patients wi th acute kidney failure, extremes of body mass or the acutely ill. http://[employer]/[facility] [email or web address] eGFR 94 >=60 mL/min/1.73 m?? [facility] Comment: The eGFR was calculated using the CKD-EP I equation. As with all creatinine based estimates of kidney function, eGFR values calculated with the CKD-EPI equation are not accurate in patients wi th acute kidney failure, extremes of body mass or the acutely ill. [email or web address] Specimen Anatomical Collection Method Collection Time Receive d Time (Source) Location / / Volume Laterality Blood specimen 12/02/2019 4:55 AM 020 5:02 (specimen) EDT AM EDT Resulting Agency Comment Spec In Lab Gretchen Yoon MD CHEMISTRY ORDERABLES Performing Organization Address City/State/[place] [address] (ABNORMAL) Hemogram (12/02/2019 4:55 AM EDT) Analysis Performed At Patho logist Time Signature WBC 9.3 4.0 - 9.5 [facility] LABORATORY RBC 3.71 (L) 4.58 - MELINA DOV 5.54 [facility] x10(6)/[facility] LABORATORY Hemoglobin 10.8 (L) 13.7 - [facility] 16.5 gm/dL [facility] Hematocrit 33.1 (L) 40.5 - [facility] 48.5 % [facility] MCV 89.2 82.9 - [facility] 93.[address] [facility] LABORATORY MCH 29.1 27.5 - [facility] 32.1 pg [facility] MCHC 32.6 32.0 - [facility] [facility] 35.7 gm/dL [facility] Platelets 93 (L) 145 - 357 [facility] x10(3)/[facility] LABORATORY RDWSD 47.1 (H) 36.0 - [facility] LABORATORY RDWCV 14.6 (H) 11.4 - [facility] 13.8 % [facility] MPV 11.7 7.6 - 12.9 [facility] LABORATORY nRBC % Auto 0.0 % [facility]ORATORY nRBC Abs Auto 0.000 0.000 - [facility] 0.000 [facility] x10(3)/[facility] LABORATORY Specimen Anatomical Collection Method Collection Time Receive d Time (Source) Location / / Volume Laterality Blood specimen 12/02/2019 4:55 AM 020 5:02 (specimen) EDT AM EDT Resulting Agency Comment Spec In Lab Gretchen Yoon MD HEMATOLOGY ORDERABLES Performing Organization Address City/State/[place] [address] Transfuse 1 unit platelets, [...] For questions regarding this report, please contact [facility] number below. ? Electronically signed by: Angel Luis Barboza MD, [facility] ([phone]), at 12/01/2019 8:02 PM Narrative 12/01/2019 8:02 [...] For questions regarding this report, please contact [facility] number below. Electronically signed by: Angel Luis Barboza MD, [facility] ([phone]), at 12/01/2019 8:02 PM Gretchen Yoon MD IMG MRI ORDERABLES Prepare Platelets, Apheresis (12/01/2019 6:20 PM EDT) P athologist Signature Dispensed? Yes [facility] LABORATORY Specimen Anatomical Collection Method Collection Time Receive d Time (Source) Location / / Volume Laterality Blood specimen 12/01/2019 6:20 PM 020 6:18 (specimen) EDT PM EDT Gretchen Yoon MD BLOOD BANK ORDERABLES Performing Organization Address City/[facility]/[place] [address] Duplex for DVT, Arm, Unilat (12/01/2019 5:08 PM EDT) Component Value Ref Test Analysis Performed At Patholo gist Range Method Time Signature VB Text Department: Vascular Surgery Lab VASCUBASE Report Patient: [id number] (ANGEL LUIS SALINAS) CPT: 58229 ICD10: R60.0 Referring Physician: GRETCHEN YOON ?? [...] For questions regarding this report, please contact [facility] number below. ? Narrative 12/01/2019 3:53 PM EDT EXAMINATION: CT HEAD WO CONTRAST (GENERIC) CLINICAL HISTORY: Headache, intracranial hemorrhage suspected Serial CT scan: please assess for propag ation of known ICH noted on prior Head CT/imaging. TECHNIQUE: CT head performed without intravenous co ntrast administration. COMPARISON: Head CT 11/30/2019. CT angiogram of the [place] 11/01. FINDINGS: Ventricles are normal in size. Basal cis terns are patent. Unchanged hyperdense 2.3 x 0.7 x 0.6 cm tubular hemorrhage projecting along the course of the left optic tract (axial se [facility] 2 image 16), consistent with [...] Head CT 11/30/2019. CT angiogram of the [place] 11/01. FINDINGS: Ventricles are normal [...] Scan, Peripheral Blood (12/01/2019 12:51 PM EDT) [facility] Method Time Signature Plat Estimate Decreased [facility]ORY RBC Morphology Normal [facility] Giant Less than 1 /HPF [facility] Platelets [facility] Specimen Anatomical Collection Method Collection Time Receive d Time (Source) Location / / Volume Laterality Blood specimen 12/01/2019 12:51 0 1:05 (specimen) PM EDT PM EDT Resulting Agency Comment Spec In Lab Riki Stevens MD HEMATOLOGY ORDERABLES Performing Organization Address City/State/[place] [address] (ABNORMAL) Differential, Automated (12/01/2019 12:51 PM EDT) [facility] Method Time Signature Neutrophils % 74.9 % [facility] LABOR[facility]ORY Neutr Abs (ANC) 6.34 (H) 1.70 - [facility] 6.10 [facility] x10(3)/[facility] LABORATORY Lymphocytes % 11.4 % [facility]OR[facility]ORY Lymphocytes Abs 1.0 0.9 - 3.2 [facility] x10(3)/[facility] LABORATORY Monocytes % 12.4 % [facility]ORY Monocyte Abs 1.0 (H) 0.3 - 0.9 [facility] x10(3)/[facility] LABORATORY Eosinophils % 0.4 % [facility]ORY Eosinophils Abs 0.0 0.0 - 0.4 [facility] x10(3)/[facility] LABORATORY Basophils % 0.4 % [facility]ORY Basophils Abs 0.0 0.0 - 0.1 [facility] x10(3)/[facility] LABORATORY Immature Gran % 0.50 % [facility] Comment: Immature granulocytes(IG's)percentage an d absolute count will include metamyelocytes, myelocytes, and promyelo cytes. Blood smears from CBCs yielding IG's will be scanned manually for ana nagy. If this scan disagrees with the automated IG or if promyelocytes are not ed, a manual differential will be performed. Pita Gran Abs 0.04 0.00 - 0.04 x10(3)/[facility] LABORATORY Specimen Anatomical Collection Method Collection Time Receive d Time (Source) Location / / Volume Laterality Blood specimen 12/01/2019 12:51 0 1:05 (specimen) PM EDT PM EDT Resulting Agency Comment Spec In Lab Riki Stevens MD HEMATOLOGY ORDERABLES Performing Organization Address City/State/ZIP Code Phon e Number [place] [id number] HOSPITAL LAB[address]ORY Drive (ABNORMAL) Hemogram (12/01/2019 12:51 PM EDT) Analysis Performed At Patho logist Time Signature WBC 8.4 4.0 - 9.5 [facility] LABORATORY RBC 3.69 (L) 4.58 - [facility] 5.54 [facility] x10(6)/[facility] LABORATORY Hemoglobin 10.8 (L) 13.7 - [facility] 16.5 gm/dL [facility] Hematocrit 32.4 (L) 40.5 - [facility] 48.5 % [facility] MCV 87.8 82.9 - [facility] 93.[address] [facility] LABORATORY MCH 29.3 27.5 - [place] DOV 32.1 pg [facility] MCHC 33.3 32.0 - [facility] DOV 35.7 gm/dL [facility] Platelets 72 (L) 145 - 357 [facility] LABORATORY RDWSD 47.2 (H) 36.0 - [facility] LABORATORY RDWCV 14.6 (H) 11.4 - [facility] DOV 13.8 % [facility] MPV 12.2 7.6 - 12.9 [facility] LABORATORY nRBC % Auto 0.0 % [facility] LABORATORY nRBC Abs Auto 0.000 0.000 - [facility] 0.000 [facility] x10(3)/[facility] LABORATORY Specimen Anatomical Collection Method Collection Time Receive d Time (Source) Location / / Volume Laterality Blood specimen 12/01/2019 12:51 0 1:05 (specimen) PM EDT PM EDT Resulting Agency Comment Spec In Lab Riki Stevens MD HEMATOLOGY ORDERABLES Performing Organization Address City/State/ZIP Code Phon e Number [address] (ABNORMAL) Coox2 (12/01/2019 11:42 AM EDT) Analysis Performed At Patho logist Time Signature pO2 Coox 30 mmHg [facility] LABORATORY Hgb Blood Gas 11.6 (L) 13.7 - [facility] 16.5 gm/dL [facility] O2HB Coox 60.8 % [facility] LABORATORY COHB Coox 0.6 % [facility] LAB[facility]ORY Comment: Nonsmokers: 0.5-1.5% COHB Smokers: Variable, but usually less than 10% Toxic: 20-30% COHB Lethal: Greater than 60% COHB METHB Coox 0.6 <=1.5 % [facility] LABORATORY Source Coox Mixed Venous [facility] LABORATORY Specimen Anatomical Collection Method Collection Time Receive d Time (Source) Location / / Volume Laterality Blood specimen 12/01/2019 11:42 0 (specimen) AM EDT 11:42 AM EDT Gretchen Yoon MD CHEMISTRY ORDERABLES Performing Organization Address City/State/[place] [address] Sedimentation rate (12/01/2019 3:55 AM EDT) P athologist Signature Sed Rate 25 3 - 46 [facility] mm/hr [facility] Comment: Effective June 11, 2019 [...] Winn MD HEMATOLOGY ORDERABLES Performing Organization Address City/[facility]/[place] [address] (ABNORMAL) CRP, acute inflammation (12/01/2019 3:55 AM EDT) P athologist Signature CRP 92.5 (H) <=4.9 mg/L [facility] LABORATORY Specimen Anatomical Collection Method Collection Time Receive d Time (Source) Location / / Volume Laterality Blood specimen Venous Draw / 12/01/2019 3:55 AM 2019 4:06 (specimen) Unknown EDT AM EDT Resulting Agency Comment Spec In Lab Rossy Winn MD CHEMISTRY ORDERABLES Performing Organization Address City/[facility]/ZIP Code Phon e Number [address] ABORH Recheck Status (12/01/2019 3:55 AM EDT) [facility] Method Time Signature ABORH Recheck Order Placed [facility] LABORATORY ABORH Type Complete [facility] LABORATORY Specimen Anatomical Collection Method Collection Time Receive d Time (Source) Location / / Volume Laterality Blood specimen 12/01/2019 3:55 AM 020 4:15 (specimen) EDT AM EDT Resulting Agency Comment Spec In Lab Lewis Gee MD BLOOD BANK ORDERABLES Performing Organization Address City/[facility]/[place] [address] Antibody screen (12/01/2019 3:55 AM EDT) Patholo gist Method Time Signature Ab Screen Negative [facility] LABORATORY Expires at 12/04/2019 [facility] [id number] on: [facility] Specimen Anatomical Collection Method Collection Time Receive d Time (Source) Location / / Volume Laterality Blood specimen 12/01/2019 3:55 AM 020 4:15 (specimen) EDT AM EDT Resulting Agency Comment Spec In Lab Lewis Gee MD BLOOD BANK ORDERABLES Performing Organization Address City/State/[place] [address] ABO/Rh Typing (12/01/2019 3:55 AM EDT) athologist Signature ABORh Type AB Pos [facility] LABORATORY Specimen Anatomical Collection Method Collection Time Receive d Time (Source) Location / / Volume Laterality Blood specimen 12/01/2019 3:55 AM 020 4:15 (specimen) EDT AM EDT Resulting Agency Comment Spec In Lab Lewis Gee MD BLOOD BANK ORDERABLES Performing Organization Address City/[facility] [place] [address] (ABNORMAL) Troponin (12/01/2019 3:55 AM EDT) athologist Signature Troponin-T 4.35 (H) 0.00 - [facility] 0.00 ng/mL [facility] Comment: result rechecked-slw The 99th percentile for Troponin T is le ss than 0.01 ng/mL, any detectable cTnT concentration using this assay should be considered elevated. According to the third universal definit ion of myocardial infarction the following criteria with a clinical prese ntation consistent with acute myocardial ischemia meets the diagnosis for a myocardial infarction (NV). Detection of a rise and/or fall of [...] additional sample may be indicated. Reference: Third [place] Definition of Myocardial Infarction. Journal of the [place] [employer] 2012;60:1581-98 Specimen Anatomical Collection Method Collection Time Receive d Time (Source) Location / / Volume Laterality Blood specimen 12/01/2019 3:55 AM 020 4:00 (specimen) EDT AM EDT Resulting Agency Comment Spec In Lab Gretchen Yoon MD CHEMISTRY ORDERABLES Performing Organization Address City/State/ZIP Code Phon e Number [address] Magnesium (12/01/2019 3:55 AM EDT) P athologist Signature Magnesium 0.96 0.69 - 1.07 [facility] mmol/L [facility] Specimen Anatomical Collection Method Collection Time Receive d Time (Source) Location / / Volume Laterality Blood specimen 12/01/2019 3:55 AM 020 4:00 (specimen) EDT AM EDT Resulting Agency Comment Spec In Lab Gretchen Yoon MD CHEMISTRY ORDERABLES Performing Organization Address City/[facility]/[place] [address] (ABNORMAL) BMP w/fasting Glucose (12/01/2019 3:55 AM EDT) P athologist Signature Glucose 148 (H) 65 - 99 [facility] Fasting mg/dL [facility] Comment: ?Fasting* Glucose Interpretive C [...] of Diabetes Mellitus, Position Statement from the [place] [employer]. ??Diabete s Care, Volume 33, Supplement 1, Jul 2009 BUN 11 10 - 20 mg/dL [facility] Creatinine 0.96 0.80 - 1.50 mg/dL [facility] Sodium 132 (L) 135 - 145 mmol/L [facility] Potassium 4.0 3.5 - 5.0 mmol/L [facility] Comment: Please note: ??Patients with WBC >100,00 0 may have falsely elevated Potassium levels. ??For accurate Potassium quantif ication in these patients send serum separator tube (gold top) for subsequent determinations. ??Contact the Clinical Chemistry Laboratory if there are any qu estions. Chloride 105 98 - 107 mmol/L [facility]ORY CO2 17 (L) 22 - 31 mmol/L [facility]OR[facility] Anion Gap 10 5 - 15 mmol/L [facility] Calcium 7.6 (L) 8.5 - 10.5 mg/dL [facility] Estimated GFR 78 >=60 mL/min/1.73 m?? [facility] Comment: The eGFR was calculated using the CKD-EP I equation. As with all creatinine based estimates of kidney function, eGFR values calculated with the CKD-EPI equation are not accurate in patients wi th acute kidney failure, extremes of body mass or the acutely ill. http://[employer]/[facility] – MUSKOGEEnkf eGFR 91 >=60 mL/min/1.73 m?? [facility] LABOR[facility]ORY Comment: The eGFR was calculated using the CKD-EP I equation. As with all creatinine based estimates of kidney function, eGFR values calculated with the CKD-EPI equation are not accurate in patients wi th acute kidney failure, extremes of body mass or the acutely ill. http://[employer]/DHnkf Specimen Anatomical Collection Method Collection Time Receive d Time (Source) Location / / Volume Laterality Blood specimen 12/01/2019 3:55 AM 020 4:00 (specimen) EDT AM EDT Resulting Agency Comment Spec In Lab Gretchen Yoon MD CHEMISTRY ORDERABLES Performing Organization Address City/State/[place] [address] (ABNORMAL) Hemogram (12/01/2019 3:55 AM EDT) Analysis Performed At [facility] Time Signature WBC 11.0 (H) 4.0 - 9.5 [facility] x10(3)/[facility] LABORATORY RBC 3.46 (L) 4.58 - [facility] 5.54 [facility] x10(6)/[facility] LABORATORY Hemoglobin 10.2 (L) 13.7 - [facility] 16.5 gm/dL [facility] Hematocrit 31.2 (L) 40.5 - [facility] 48.5 % [facility] MCV 90.2 82.9 - [facility] 93.[address] [facility] LABORATORY MCH 29.5 27.5 - [facility] 32.1 pg [facility] MCHC 32.7 32.0 - [facility] 35.7 gm/dL [facility] Platelets 98 (L) 145 - 357 [facility] x10(3)/[facility] LABORATORY RDWSD 47.9 (H) 36.0 - [facility] LABORATORY RDWCV 14.6 (H) 11.4 - [facility] 13.8 % [facility] MPV 12.3 7.6 - 12.9 [facility] LABORATORY nRBC % Auto 0.0 % [facility] LABORATORY nRBC Abs Auto 0.000 0.000 - [facility] 0.000 [facility] x10(3)/[facility] LABORATORY Specimen Anatomical Collection Method Collection Time Receive d Time (Source) Location / / Volume Laterality Blood specimen 12/01/2019 3:55 AM 020 4:00 (specimen) EDT AM EDT Resulting Agency Comment Spec In Lab Gretchen Yoon MD HEMATOLOGY ORDERABLES Performing Organization Address City/State/[place] [address] (ABNORMAL) BLOOD GAS 2 ARTERIAL (11/30/2019 10:39 PM EDT) Analysis Performed At [facility] Time Signature pH Art 7.45 7.35 - [facility] 7.45 [facility] pCO2 Art 23 (L) 35 - 45 [facility] LABORATORY pO2 Art 76 (L) 85 - 104 [facility] LABORATORY HCO3 Art 15.3 (L) 20.0 - [facility] 26.0 [facility] mmol/[facility] LABORATORY BE Art -8.7 (L) -3.0 - 3.0 [facility] mmol/L [facility] Hgb Blood Gas 11.7 (L) 13.7 - [facility] 16.5 gm/dL [facility] O2HB Art 94.2 94.0 - [facility] 97.0 % [facility] COHB Art 0.5 % [facility] LABORATORY Comment: Nonsmokers: 0.5-1.5% COHB Smokers: Variable, but usually less than 10% Toxic: 20-30% COHB Lethal: Greater than 60% COHB METHB Art 0.6 <=1.5 % [facility] Na Whole Blood 133 (L) 135 - 145 mmol/L [facility] K Whole Blood 3.8 3.5 - 5.0 mmol/L [facility] Comment: Please note: Patients with WBC >100,000 may have falsely elevated Potassium levels. Contact the Clinical Chemistry L aboratory if there are any questions. ICa Whole Blood 1.10 (L) 1.15 - 1.33 mmol/L [facility] LABORATORY Comment: Note: ??Total bilirubin higher than 20 m g/dL may lead to falsely low ionized calcium. CL Whole Blood 109 (H) 98 - 107 mmol/L [facility] Gluc Whole Bld 120 65 - 199 mg/dL [facility] Comment: Diabetes: >=200 mg/dL plus symp toms. Lactate WB 0.8 0.5 - 2.2 mmol/L [facility] FIO2 Art 100 % [facility] PF Ratio Art 76 [facility] Specimen Anatomical Collection Method Collection Time Receive d Time (Source) Location / / Volume Laterality Blood specimen 11/30/2019 10:39 0 (specimen) PM EDT 10:39 PM EDT Gretchen Yoon MD CHEMISTRY ORDERABLES Performing Organization Address City/State/[place] [address] EKG 12 Lead (11/30/2019 [...] (Bezet) Calculated P 12 degrees [facility] [place] Calculated R 19 degrees [facility] [place] Calculated T -47 degrees [facility] [place] INTERPRETATION Sinus rhythm with Premature supraventricular complexes [...] Yoon MD ECG ORDERABLES Performing Organization Address City/[facility]/ZIP Code Phon e Number MUSE SYSTEM (ABNORMAL) Urinalysis Microscopic Exam (11/30/2019 8:40 PM EDT) P athologist Signature RBC UA 27 (H) 0 - 3 /HPF [facility] LABORATORY WBC UA 4 (H) 0 - 3 /HPF [facility] LABORATORY Hyaline Cast 3 (H) 0 - 2 /LPF [facility] LABORATORY Specimen (Source) Anatomical Collection Method Collection Time Re ceived Time Location / / Volume Laterality Urine specimen 11/30/2019 8:40 11/30/2019 obtained via PM EDT 10:51 PM EDT indwelling urinary catheter (specimen) Resulting Agency Comment Spec In Lab Rossy Winn MD URINE ORDERABLES Performing Organization Address City/[facility]/ZIP Code Phon e Number [place] [id number]OS[address] LAB[address]ORY Drive (ABNORMAL) Urinalysis with reflex Culture (11/30/2019 8:40 PM EDT) Patholo gist Method Time Signature Glucose UA Negative Negative [facility] mg/dL [facility] Protein UA Negative Negative [facility] mg[facility]dL [facility] Bilirubin UA Negative Negative [facility] mg/dL [facility] Comment: Clinical correlation required for positi ve Urine Bilirubin results as false positive may occur with some drugs and d rug related products. If a false positive is suspected a serum total bili morales should be considered if clinically indicated. Urobilinogen UA Normal Normal mg/dL [facility] pH UA 5.5 5.0 - 8.0 [facility] Blood UA Moderate (A) Negative mg/dL [facility] Ketones UA 40 (A) Negative mg/dL [facility] LABORATORY Nitrite UA Negative Negative [facility] Leukocytes UA Trace (A) Negative [facility] LABORATORY Appearance UA Clear Clear [facility] Spec [place] UA 1.026 1.006 - 1.030 [facility] Color UA Yellow Yellow [facility] Culture Reflexed No [facility] Specimen (Source) Anatomical Collection Method Collection Time Re ceived Time Location / / Volume Laterality Urine specimen 11/30/2019 8:40 11/30/2019 obtained via PM EDT 10:51 PM EDT indwelling urinary catheter (specimen) Resulting Agency Comment Spec In Lab Gretchen Yoon MD URINE ORDERABLES Performing Organization Address City/State/[place] [address] (ABNORMAL) pro-Brain Natriuretic Peptide (11/30/2019 8:30 PM EDT) P athologist Signature ProBNP 2,802 (H) <=125 [facility] pg/mL [facility] Specimen Anatomical Collection Method Collection Time Receive d Time (Source) Location / / Volume Laterality Blood specimen Venous Draw / 11/30/2019 8:30 PM 2019 8:36 (specimen) Unknown EDT PM EDT Resulting Agency Comment Spec In Lab Rossy Winn MD CHEMISTRY ORDERABLES Performing Organization Address City/State/ZIP Code Phon e Number [place] [id number] (ABNORMAL) Troponin (11/30/2019 8:30 PM EDT) athologist Signature Troponin-T 5.04 (H) 0.00 - [facility] MON[facility] 0.00 ng/mL [facility] Comment: The 99th percentile for Troponin T is le ss than 0.01 ng/mL, any detectable cTnT concentration using this assay should be considered elevated. According to the third universal definit ion of myocardial infarction the following criteria with a clinical prese ntation consistent with acute myocardial ischemia meets the diagnosis for a myocardial infarction (NV). Detection of a rise and/or fall of [...] additional sample may be indicated. Reference: Third [place] Definition of Myocardial Infarction. Journal of the [place] [employer] 2012;60:1581-98 Specimen Anatomical Collection Method Collection Time Receive d Time (Source) Location / / Volume Laterality Blood specimen Venous Draw / 11/30/2019 8:30 PM 2019 8:36 (specimen) Unknown EDT PM EDT Resulting Agency Comment Spec In Lab Rossy Winn MD CHEMISTRY ORDERABLES Performing Organization Address City/State/[place] [address] Magnesium (11/30/2019 8:30 PM EDT) athologist Signature Magnesium 0.79 0.69 - 1.07 [facility] mmol/L [facility] Specimen Anatomical Collection Method Collection Time Receive d Time (Source) Location / / Volume Laterality Blood specimen 11/30/2019 8:30 PM 020 8:35 (specimen) EDT PM EDT Resulting Agency Comment Spec In Lab Gretchen Yoon MD CHEMISTRY ORDERABLES Performing Organization Address City/State/[place] [address] (ABNORMAL) Basic Metabolic Panel (non-fasting) (11/30/2019 8:30 PM EDT) athologist Signature Glucose Lvl 132 65 - 199 [facility] mg/dL [facility] Comment: Diabetes: >=200 mg/dL plus symp toms BUN 12 10 - 20 mg/dL [facility] Creatinine 0.94 0.80 - 1.50 mg/dL [facility] Sodium 136 135 - 145 mmol/L [facility] Potassium 3.9 3.5 - 5.0 mmol/L [facility] Comment: Please note: ??Patients with WBC >100,00 0 may have falsely elevated Potassium levels. ??For accurate Potassium quantif ication in these patients send serum separator tube (gold top) for subsequent determinations. ??Contact the Clinical Chemistry Laboratory if there are any qu estions. Chloride 108 (H) 98 - 107 mmol/L [facility] CO2 17 (L) 22 - 31 mmol/L [facility] Anion Gap 11 5 - 15 mmol/L [facility] Calcium 7.9 (L) 8.5 - 10.5 mg/dL [facility] Estimated GFR 80 >=60 mL/min/1.73 m?? [facility] Comment: The eGFR was calculated using the CKD-EP I equation. As with all creatinine based estimates of kidney function, eGFR values calculated with the CKD-EPI equation are not accurate in patients wi th acute kidney failure, extremes of body mass or the acutely ill. http://[employer]/DHnkf eGFR 93 >=60 mL/min/1.73 m?? [facility] Comment: The eGFR was calculated using the CKD-EP I equation. As with all creatinine based estimates of kidney function, eGFR values calculated with the CKD-EPI equation are not accurate in patients wi th acute kidney failure, extremes of body mass or the acutely ill. http://[employer]/DHnkf Specimen Anatomical Collection Method Collection Time Receive d Time (Source) Location / / Volume Laterality Blood specimen 11/30/2019 8:30 PM 020 8:35 (specimen) EDT PM EDT Resulting Agency Comment Spec In Lab Gretchen Yoon MD CHEMISTRY ORDERABLES Performing Organization Address [facility] Phon e Number [address] Blood culture (11/30/2019 8:30 PM EDT) Patholo gist Method Time Signature Blood Culture No growth MELINA MONAE at 5 days. [facility] Specimen Anatomical Collection Method Collection Time Receive d Time (Source) Location / / Volume Laterality Blood specimen 11/30/2019 8:30 PM 020 9:40 (specimen) EDT PM EDT Comment: L HAND Resulting Agency Comment Spec In Lab Gretchen Yoon MD MICROBIOLOGY - BLOOD ORDERAB LES Performing Organization Address City/[facility] [place] [address] Blood culture (11/30/2019 8:30 PM EDT) Patholo gist Method Time Signature Blood Culture No growth MELINA MONAE at 5 days. [facility] Specimen Anatomical Collection Method Collection Time Receive d Time (Source) Location / / Volume Laterality Blood specimen 11/30/2019 8:30 PM 020 9:40 (specimen) EDT PM EDT Comment: R HAND Resulting Agency Comment Spec In Lab Gretchen Yoon MD MICROBIOLOGY - BLOOD ORDERAB LES Performing Organization Address [facility] Phon e Number [address] XR Chest One View [...] Time Signature pH Art 7.45 7.35 - [facility] 7.45 [facility] pCO2 Art 27 (L) 35 - 45 [facility] mmHg [facility] pO2 Art 68 (L) 85 - 104 [facility]ORATORY HCO3 Art 18.2 (L) 20.0 - [facility] 26.0 [facility] mmol/[facility]ORY BE Art -5.9 (L) -3.0 - 3.0 [facility] mmol/L [facility] Hgb Blood Gas 12.4 (L) 13.7 - [facility] 16.5 gm/dL [facility] O2HB Art 93.1 (L) 94.0 - [facility] 97.0 % [facility] COHB Art 0.8 % [facility] Comment: Nonsmokers: 0.5-1.5% COHB Smokers: Variable, but usually less than 10% Toxic: 20-30% COHB Lethal: Greater than 60% COHB METHB Art 0.4 <=1.5 % [facility] Na Whole Blood 133 (L) 135 - 145 mmol/L [facility] K Whole Blood 3.6 3.5 - 5.0 mmol/L [facility] Comment: Please note: Patients with WBC >100,000 may have falsely elevated Potassium levels. Contact the Clinical Chemistry L aboratory if there are any questions. ICa Whole Blood 1.13 (L) 1.15 - 1.33 mmol/L [facility] Comment: Note: ??Total bilirubin higher than 20 m g/dL may lead to falsely low ionized calcium. CL Whole Blood 108 (H) 98 - 107 mmol/L [facility] Gluc Whole Bld 121 65 - 199 mg/dL [facility] Comment: Diabetes: >=200 mg/dL plus symp toms. Lactate WB 1.2 0.5 - 2.2 mmol/L [facility] Flow Art 5.0 LPM [facility] Specimen Anatomical Collection Method Collection Time Receive d Time (Source) Location / / Volume Laterality Blood specimen 11/30/2019 8:09 PM 020 8:09 (specimen) EDT PM EDT Gretchen Yoon MD CHEMISTRY ORDERABLES Performing Organization Address City/State/ZIP Code Phon e Number [place] [phone]OS[address] CT Angiogram [place] (11/30/2019 4:36 PM EDT) Anatomical [...] CT HEAD WO CONTRAST (GENERIC), CT ANGIOGRAM [place] CLINICAL HISTORY: Headache, intracranial hemorrhage suspected F/U on known ICH - assessing for propaga tion TECHNIQUE: CT head performed without intravenous co ntrast administration. CT angiogram [place] 65 cc Omnipaque 350 administered [...] HEAD WO CONTRAST (GENERI C), CT ANGIOGRAM [place] CLINICAL HISTORY: Headache, intracranial hemorrhage suspected F/U on known ICH - assessing for propaga tion TECHNIQUE: CT head performed without intravenous co ntrast administration. CT angiogram [place] 65 cc Omnipaque 350 administered [...] CT HEAD WO CONTRAST (GENERIC), CT ANGIOGRAM [place] CLINICAL HISTORY: Headache, intracranial hemorrhage suspected F/U on known ICH - assessing for propaga tion TECHNIQUE: CT head performed without intravenous co ntrast administration. CT angiogram [place] 65 cc Omnipaque 350 administered [...] HEAD WO CONTRAST (GENERI C), CT ANGIOGRAM [place] CLINICAL HISTORY: Headache, intracranial hemorrhage suspected F/U on known ICH - assessing for propaga tion TECHNIQUE: CT head performed without intravenous co ntrast administration. CT angiogram [place] 65 cc Omnipaque 350 administered [...] Electronically signed by: Angel Luis Barboza MD, [facility] ([phone]), at 11/30/2019 5:04 PM Gretchen Yoon MD [...] 453 ms MUSE SYSTEM (Bezet) Calculated P [place] 52 degrees MUSE SYSTEM Calculated R [place] 5 degrees MUSE SYSTEM Calculated T [place] -60 degrees MUSE SYSTEM INTERPRETATION Sinus rhythm [...] [place]an ? (Age): 1945(74y) Med Rec#: ? [id number] ?Sex: ?M ? Site Loc: ? [facility] ?Ht / Wt: ??178(cm)/64(kg) Pt. Loc: ?CCU ? BSA: ?1.8 Study Date: ?? 11/30/2019 ?Pt. Type: Inpatient Tape: ? Referring: GILMER Reading: Tello Mejia ([id number]) [employer] Law Clerk: Friend, Lolita Diagnosis: *ST elevation (STEMI) myocardial infarc tion involving right coronary artery (I21.11) BP: ? 102/58 SUMMARY: 1. The left ventricular chamber size is normal. Left ventricular wall thickness is normal. The quantitative le ft ventricular ejection fraction by biplane Oruorke's method is 45%. Ther e are left [...] Vmax ?0.58 ? m/sec ? MV deceleration hbav259.05 ? m sec ? MV A-wave Vmax [...] ? Mid-Inferior ?Akinetic ? Mid-Inferoseptal ?Normal ? [place]-Septal ? Normal ? [place]-Anterior ? Normal ? [place]-Lateral ?Normal ? [place]-Inferior ? Hypokinetic ? [place]-Tip ?Normal ? This report has been electronically sign ed by: _ Tello Mejia MD ? 11/30/2019 12: 45:27 [facility] Procedure Note Tello Mejia MD - 11/30/2019Formatti ng of this note might be different from the original. Procedure: Transthoracic Echocardiogram Patient: RITA ACOSTA(Age): [birth year](74y) Med Rec#: [id number] Sex: M Site Loc: [facility] Ht / Wt: 178(cm)/64(kg) Pt. Loc: [facility] BSA: 1.8 Study Date: 11/30/2019 Pt. Type: Inpatie nt Tape: Referring: DONAYMICMUNIRAJ Reading: Tello Mejia ([id number]) [employer] Law Clerk: Lolita Prado Diagnosis: *ST elevation (STEMI) myocardial [...] MV E-wave Vmax 0.58 m/sec MV deceleration [id number] msec MV A-wave Vmax 0.74 m/sec MV [...] Hypokinetic Mid-Posterolateral Hypokinetic Mid-Inferior Akinetic Mid-Inferoseptal Normal [place]-Septal Normal [place]-Anterior Normal [place]-Lateral Normal [place]-Inferior Hypokinetic [place]-Tip Normal This report has been electronically sign ed by: _ Tello Mejia MD 11/30/2019 12:45:27 Images reviewed and interpretation rafaela devin [facility] Cardiac Ultrasound Laboratory Gretchen Yoon [...] Electronically signed by: Angel Luis Barboza MD, [facility] ([phone]), at 11/30/2019 12:04 PM Narrative 11/30/2019 12:04 [...] ORDERABLES Magnesium (11/30/2019 8:30 AM EDT) athologist [facility] Magnesium 0.88 0.69 - 1.07 [facility] mmol/L [facility] Specimen Anatomical Collection Method Collection Time Receive d Time (Source) Location / / Volume Laterality Blood specimen Venous Draw / 11/30/2019 8:30 AM 2019 8:37 (specimen) Unknown EDT AM EDT Resulting Agency Comment Spec In Lab Rossy Winn MD CHEMISTRY ORDERABLES Performing Organization Address City/[facility]/[place] [address] (ABNORMAL) CK (11/30/2019 8:30 AM EDT) athologist [facility] CK, Total 1,645 (H) 0 - 200 [facility] Specimen Anatomical Collection Method Collection Time Receive d Time (Source) Location / / Volume Laterality Blood specimen 11/30/2019 8:30 AM 020 8:32 (specimen) EDT AM EDT Resulting Agency Comment Spec In Lab Gretchen Yoon MD CHEMISTRY ORDERABLES Performing Organization Address City/[facility] [place] [address] (ABNORMAL) Troponin (11/30/2019 8:30 AM EDT) athologist [facility] Troponin-T 8.04 (H) 0.00 - MELINA DOV 0.00 ng/mL [facility] Comment: result rechecked-rancho The 99th percentile for Troponin T is le ss than 0.01 ng/mL, any detectable cTnT concentration using this assay should be considered elevated. According to the third universal definit ion of myocardial infarction the following criteria with a clinical prese ntation consistent with acute myocardial ischemia meets the diagnosis for a myocardial infarction (NV). Detection of a rise and/or fall of [...] additional sample may be indicated. Reference: Third [place] Definition of Myocardial Infarction. Journal of the [place] [employer] 2012;60:1581-98 Specimen Anatomical Collection Method Collection Time Receive d Time (Source) Location / / Volume Laterality Blood specimen 11/30/2019 8:30 AM 020 8:32 (specimen) EDT AM EDT Resulting Agency Comment Spec In Lab rGetchen Yoon MD CHEMISTRY ORDERABLES Performing Organization Address City/State/ZIP Code Phon e Number [place] [phone] EKG 12 Lead (11/30/2019 7:57 AM EDT) Component Value Ref Range Test Analysis Performed Pathologis t Method Time At Signature Ventricular rate 64 BPM MUSE SYSTEM Atrial Rate 64 BPM MUSE SYSTEM P-R Interval 132 ms MUSE SYSTEM QRS Duration 78 ms MUSE SYSTEM Q-T Interval 420 ms MUSE SYSTEM QTC Calculated 433 ms MUSE SYSTEM (Bezet) Calculated P [place] 28 degrees MUSE SYSTEM Calculated R [place] 7 degrees MUSE SYSTEM Calculated T [place] -33 degrees MUSE SYSTEM INTERPRETATION Sinus rhythm [...] Signature Glucose 147 (H) 65 - 99 [facility] Fasting mg/dL [facility] Comment: ?Fasting* Glucose Interpretive C [...] of Diabetes Mellitus, Position Statement from the [place] [employer]. ??Diabete s Care, Volume 33, Supplement 1, Jul 2009 BUN 13 10 - 20 mg/dL [facility] Creatinine 0.90 0.80 - 1.50 mg/dL [facility] Sodium 135 135 - 145 mmol/L [facility] Potassium 3.9 3.5 - 5.0 mmol/L [facility] Comment: Please note: ??Patients with WBC >100,00 0 may have falsely elevated Potassium levels. ??For accurate Potassium quantif ication in these patients send serum separator tube (gold top) for subsequent determinations. ??Contact the Clinical Chemistry Laboratory if there are any qu estions. Chloride 108 (H) 98 - 107 mmol/L [facility] CO2 16 (L) 22 - 31 mmol/L [facility] Anion Gap 11 5 - 15 mmol/L [facility] Calcium 7.5 (L) 8.5 - 10.5 mg/dL [facility] Estimated GFR 84 >=60 mL/min/1.73 m?? [facility] Comment: The eGFR was calculated using the CKD-EP I equation. As with all creatinine based estimates of kidney function, eGFR values calculated with the CKD-EPI equation are not accurate in patients wi th acute kidney failure, extremes of body mass or the acutely ill. http://[employer]/[facility] MUSKOGEEnkf eGFR 98 >=60 mL/min/1.73 m?? [facility] Comment: The eGFR was calculated using the CKD-EP I equation. As with all creatinine based estimates of kidney function, eGFR values calculated with the CKD-EPI equation are not accurate in patients wi th acute kidney failure, extremes of body mass or the acutely ill. http://[employer]/[facility] MUSKOGEEnkf Specimen Anatomical Collection Method Collection Time Receive d Time (Source) Location / / Volume Laterality Blood specimen 11/30/2019 2:15 AM 020 2:29 (specimen) EDT AM EDT Resulting Agency Comment Spec In Lab Gretchen Yoon MD CHEMISTRY ORDERABLES Performing Organization Address City/State/ZIP Code Phon e Number [place] [phone] (ABNORMAL) Hemogram (11/30/2019 2:15 AM EDT) Analysis Performed At Patho logist Time Signature WBC 11.2 (H) 4.0 - 9.5 [facility] x10(3)/[facility] LABORATORY RBC 3.83 (L) 4.58 - [facility] 5.54 [facility] x10(6)/[facility] LABORATORY Hemoglobin 11.4 (L) 13.7 - [facility] 16.5 gm/dL [facility] Hematocrit 35.2 (L) 40.5 - [facility] 48.5 % [facility] MCV 91.9 82.9 - [facility] 93.1 fL [facility] MCH 29.8 27.5 - [facility] 32.1 pg [facility] MCHC 32.4 32.0 - MELINA MONAE 35.7 gm/dL [facility] Platelets 122 (L) 145 - 357 MELINA MARSHDOV x10(3)/[facility] LABORATORY RDWSD 49.8 (H) 36.0 - MELINA MONAE 45.[address] [facility] LABORATORY RDWCV 14.8 (H) 11.4 - MELINA [place] 13.8 % [facility] MPV 12.1 7.6 - 12.[address] [facility] LABORATORY nRBC % Auto 0.0 % [facility]ORY nRBC Abs Auto 0.000 0.000 - MELINA MARSHDOV 0.000 [facility] x10(3)/[facility] LABORATORY Specimen Anatomical Collection Method Collection Time Receive d Time (Source) Location / / Volume Laterality Blood specimen 11/30/2019 2:15 AM 020 2:29 (specimen) EDT AM EDT Resulting Agency Comment Spec In Lab Gretchen Yoon MD HEMATOLOGY ORDERABLES Performing Organization Address City/State/[place] [address] (ABNORMAL) CK (11/30/2019 2:15 AM EDT) athologist [facility] CK, Total 1,969 (H) 0 - 200 [facility] DOV unit/L [facility] Specimen Anatomical Collection Method Collection Time Receive d Time (Source) Location / / Volume Laterality Blood specimen 11/30/2019 2:15 AM 020 2:29 (specimen) EDT AM EDT Resulting Agency Comment Spec In Lab Gretchen Yoon MD CHEMISTRY ORDERABLES Performing Organization Address City/State/[place] [address] (ABNORMAL) Troponin (11/30/2019 2:15 AM EDT) athologist [facility] Troponin-T 11.73 (H) 0.00 - MELINA MONAE 0.00 ng/mL [facility] Comment: result rechecked-slw The 99th percentile for Troponin T is le ss than 0.01 ng/mL, any detectable cTnT concentration using this assay should be considered elevated. According to the third universal definit ion of myocardial infarction the following criteria with a clinical prese ntation consistent with acute myocardial ischemia meets the diagnosis for a myocardial infarction (NV). Detection of a rise and/or fall of [...] additional sample may be indicated. Reference: Third [place] Definition of Myocardial Infarction. Journal of the [place] College [employer] 2012;60:1581-98 result rechecked- The 99th percentile for Troponin T is le ss than 0.01 ng/mL, any detectable cTnT concentration using this assay should be considered elevated. According to the third universal definit ion of myocardial infarction the following criteria with a clinical prese ntation consistent with acute myocardial ischemia meets the diagnosis for a myocardial infarction (NV). Detection of a rise and/or fall of [...] additional sample may be indicated. Reference: Third [place] Definition of Myocardial Infarction. Journal of the [place] College [employer]iology 2012;60:1581-98 Corrected from 11.73 ng/ml [HI] on 11/29 3:11:51 EDT by Debi Hawley Specimen Anatomical Collection Method Collection Time Receive d Time (Source) Location / / Volume Laterality Blood specimen 11/30/2019 2:15 AM 020 2:29 (specimen) EDT AM EDT Resulting Agency Comment Spec In Lab Gretchen Yoon MD CHEMISTRY ORDERABLES Performing Organization Address City/[facility]/ZIP Code Phon e Number [address] LDL Cholesterol, Direct (11/30/2019 2:15 AM EDT) P athologist Signature LDL Chol 156 mg/dL [facility] Comment: Lowest Risk: <100 mg/dL Lower Risk: 100-129 mg/dL Borderline High Risk: 130-159 mg/dL High Risk: 160-189 mg/dL Very High Risk: >is=819 mg/dL Specimen Anatomical Collection Method Collection Time Receive d Time (Source) Location / / Volume Laterality Blood specimen 11/30/2019 2:15 AM 020 2:29 (specimen) EDT AM EDT Resulting Agency Comment Spec In Lab Gretchen Yoon MD CHEMISTRY ORDERABLES Performing Organization Address City/[facility]/ZIP Code Phon e Number [address] (ABNORMAL) Hemoglobin A1c (11/30/2019 2:15 AM EDT) Analysis Performed At Patho logist Time Signature Hemoglobin A1C 6.3 (H) 4.3 - 5.6 [facility] Comment: Reference Range: 4.3 - 5.6% [...] Mellitus, Diabetes Care 2013; 36: Suppl. 1, I12-69 Est Avg Gluc See note mg/dL [facility] Comment: Estimated Average Glucose [...] with hemoglobinopathies. Additional resources are available on [facility] ADA website. Kiko CARBAJAL, Jenn J, Silas R, et al. ??Tr anslating the A1C assay into estimated average glucose values. ??Diabetes Care 2008:31(8):8438-7597. Specimen Anatomical Collection Method Collection Time Receive d Time (Source) Location / / Volume Laterality Blood specimen 11/30/2019 2:15 AM 020 2:29 (specimen) EDT AM EDT Resulting Agency Comment Spec In Lab Gretchen Yoon MD CHEMISTRY ORDERABLES Performing Organization Address City/State/[place] [address] Lipid Panel (Reflex Direct LDL) (11/30/2019 2:15 AM EDT) athologist Signature Chol, Total 195 mg/dL [facility] Comment: Lower Risk: <200 mg/dL Average Risk: 200-239 mg/dL Higher Risk: >rn=712 mg/dL Triglycerides 93 mg/dL [facility] Comment: Average Risk/Lower Risk: <150 mg/dL Borderline High Risk: 150-199 mg/dL High Risk: 200-499 mg/dL Very High Risk: >wu=027 mg/dL HDL 32 mg/dL [facility] Comment: Males: ?? Higher Risk: <40 mg/dL Females: ?? HIgher Risk: <50 mg/dL LDL Cholesterol 144 mg/dL [facility] Comment: Lowest Risk: <100 mg/dL Lower Risk: 100-129 mg/dL Borderline High Risk: 130-159 mg/dL High Risk: 160-189 mg/dL Very High Risk: >tq=583 mg/dL Chol/HDL Ratio 6.1 ratio [facility] Lipid Interpretation See Note [facility] Comment: Lipid management should be guided by a p atient? s ASCVD risk, goals and preferences. ACC/AHA Guidelines recommend high intens ity statin if clinical ASCVD or LDL greater than or equal to 190 mg/dL. http://[employer]/IKB-OHS-Isqscpuic Adults aged 40-75 with LDL 70-189 mg/dL should have their 10 year ASCVD risk estimated with the ACC/AHA ASCVD risk es timator http://tools.acc.org/IYSFG-Zsvg-Jjrxmrbg r/ Statin should be discussed if risk [...] Organization Address City/State/[place] [address] (ABNORMAL) CK (11/29/2019 6:35 PM EDT) athologist Signature CK, Total 2,780 (H) 0 - 200 [facility] unit/L [facility] Specimen Anatomical Collection Method Collection Time Receive d Time (Source) Location / / Volume Laterality Blood specimen 11/29/2019 6:35 PM 020 6:53 (specimen) EDT PM EDT Resulting Agency Comment Spec In Lab Gretchen Yono MD CHEMISTRY ORDERABLES Performing Organization Address City/State/[place] [address] (ABNORMAL) Troponin (11/29/2019 6:35 PM EDT) athologist Signature Troponin-T 17.60 (H) 0.00 - [facility] 0.00 ng/mL [facility] Comment: result rechecked-az The 99th percentile for Troponin T is le ss than 0.01 ng/mL, any detectable cTnT concentration using this assay should be considered elevated. According to the third universal definit ion of myocardial infarction the following criteria with a clinical prese ntation consistent with acute myocardial ischemia meets the diagnosis for a myocardial infarction (NV). Detection of a rise and/or fall of [...] additional sample may be indicated. Reference: Third [place] Definition of Myocardial Infarction. Journal of the [place] College [employer]iology 2012;60:1581-98 Specimen Anatomical Collection Method Collection Time Receive d Time (Source) Location / / Volume Laterality Blood specimen 11/29/2019 6:35 PM 020 6:53 (specimen) EDT PM EDT Resulting Agency Comment Spec In Lab Gretchen Yoon MD CHEMISTRY ORDERABLES Performing Organization Address City/State/ZIP Code Phon e Number [place] [phone] EKG 12 Lead (11/29/2019 3:58 PM EDT) [facility] gist Method Time Signature Ventricular rate 73 BPM MUSE SYSTEM Atrial Rate 73 BPM MUSE SYSTEM P-R Interval 152 ms MUSE SYSTEM QRS Duration 84 ms MUSE SYSTEM Q-T Interval 404 ms MUSE SYSTEM QTC Calculated 445 ms MUSE SYSTEM (Bezet) Calculated P [place] 50 degrees MUSE SYSTEM Calculated R [place] -4 degrees MUSE SYSTEM Calculated T [place] 19 degrees MUSE SYSTEM INTERPRETATION Sinus rhythm [...] CLINICAL HISTORY: stemi (as entered by o [facility] provider in the order requisition) TECHNIQUE: Portable [...] lung apex is excluded from the imaged [id number]. IMPRESSION: 1. ??New right internal jugular pulmonar [...] lung apex is excluded from the imaged [id number]. Procedure Note Estefani Harris MD - 11/29/2019Formattin [...] lung apex is excluded from the imaged [id number]. IMPRESSION 1. New right internal jugular pulmonary [...] (ABNORMAL) Differential, Automated (11/29/2019 2:32 PM EDT) [facility] Method Time Signature Neutrophils % 83.8 % [facility] LABORATORY Neutr Abs (ANC) 12.12 (H) 1.70 - [facility] 6.10 [facility] x10(3)/[facility] LABORATORY Lymphocytes % 9.1 % [facility] LABORATORY Lymphocytes Abs 1.3 0.9 - 3.2 [facility] x10(3)/[facility] LABORATORY Monocytes % 6.2 % [facility] LABORATORY Monocyte Abs 0.9 0.3 - 0.9 [facility] x10(3)/[facility] LABORATORY Eosinophils % 0.0 % [facility] LABORATORY Eosinophils Abs 0.0 0.0 - 0.4 [facility] x10(3)/[facility] LABORATORY Basophils % 0.3 % [facility] LABORATORY Basophils Abs 0.0 0.0 - 0.1 [facility] x10(3)/[facility] LABORATORY Immature Gran % 0.60 % [facility] LABORATORY Comment: Immature granulocytes(IG's)percentage an d absolute count will include metamyelocytes, myelocytes, and promyelo cytes. Blood smears from CBCs yielding IG's will be scanned manually for concor dance. If this scan disagrees with the automated IG or if promyelocytes are not ed, a manual differential will be performed. Pita Gran Abs 0.08 (H) 0.00 - 0.04 x10(3)/[facility] LABORATORY Specimen Anatomical Collection Method Collection Time Receive d Time (Source) Location / / Volume Laterality Blood specimen 11/29/2019 2:32 PM 020 2:55 (specimen) EDT PM EDT Resulting Agency Comment Spec In Lab Darrell Glasgow MD HEMATOLOGY ORDERABLES Performing Organization Address City/State/[place] [address] (ABNORMAL) Hemogram (11/29/2019 2:32 PM EDT) Analysis Performed At Patho logist Time Signature WBC 14.5 (H) 4.0 - 9.5 [facility] x10(3)/[facility] LABORATORY RBC 4.53 (L) 4.58 - [facility] x10(6)/[facility] LABORATORY Hemoglobin 13.1 (L) 13.7 - [facility] 16.5 gm/dL [facility] Hematocrit 40.8 40.5 - [facility] 48.5 % [facility] MCV 90.1 82.9 - [facility] LABORATORY MCH 28.9 27.5 - [facility] 32.1 pg [facility] MCHC 32.1 32.0 - [facility] 35.7 gm/dL [facility] Platelets 184 145 - 357 [facility] x10(3)/[facility] LABORATORY RDWSD 47.8 (H) 36.0 - [facility] DOV 45.[address] [facility] LABORATORY RDWCV 14.5 (H) 11.4 - [facility] DOV 13.8 % [facility] LABORATORY MPV 11.9 7.6 - 12.9 [facility] nRBC % Auto 0.0 % [facility] LABORATORY nRBC Abs Auto 0.000 0.000 - [facility] DOV 0.000 [facility] x10(3)/[facility] LABORATORY Specimen Anatomical Collection Method Collection Time Receive d Time (Source) Location / / Volume Laterality Blood specimen 11/29/2019 2:32 PM 020 2:55 (specimen) EDT PM EDT Resulting Agency Comment Spec In Lab Darrell Glasgow MD HEMATOLOGY ORDERABLES Performing Organization Address City/State/ZIP Code Phon e Number [address] (ABNORMAL) CK (11/29/2019 2:32 PM EDT) athologist Signature CK, Total 3,282 (H) 0 - 200 [facility] unit/L [facility] LABORATORY Specimen Anatomical Collection Method Collection Time Receive d Time (Source) Location / / Volume Laterality Blood specimen 11/29/2019 2:32 PM 020 2:32 (specimen) EDT PM EDT Resulting Agency Comment Spec In Lab Gretchen Yoon MD CHEMISTRY ORDERABLES Performing Organization Address City/[facility]/[place] [address] (ABNORMAL) Troponin (11/29/2019 2:32 PM EDT) athologist Signature Troponin-T 20.33 (H) 0.00 - [facility] 0.00 ng/mL [facility] LABOR[facility] Comment: The 99th percentile for Troponin T is le ss than 0.01 ng/mL, any detectable cTnT concentration using this assay should be considered elevated. According to the third universal definit ion of myocardial infarction the following criteria with a clinical prese ntation consistent with acute myocardial ischemia meets the diagnosis for a myocardial infarction (NV). Detection of a rise and/or fall of [...] additional sample may be indicated. Reference: Third [place] Definition of Myocardial Infarction. Journal of the [place] [employer] 2012;60:1581-98 Specimen Anatomical Collection Method Collection Time Receive d Time (Source) Location / / Volume Laterality Blood specimen 11/29/2019 2:32 PM 020 2:32 (specimen) EDT PM EDT Resulting Agency Comment Spec In Lab Gretchen Yoon MD CHEMISTRY ORDERABLES Performing Organization Address [facility] [place] [address] (ABNORMAL) APTT (11/29/2019 2:32 PM EDT) athologist Signature PTT 114 25 - 37 [facility] (Critical) [facility] LABORATORY Comment: Critical Result called by ?? [...] Yoon MD HEMATOLOGY ORDERABLES Performing Organization Address [facility] [place] [address] (ABNORMAL) Prothrombin Time (11/29/2019 2:32 PM EDT) P athologist Signature PT 13.5 (H) 9.4 - 12.5 [facility] LABORATORY INR 1.2 [facility] LABORATORY Comment: An INR <2.0 [...] Organization Address City/State/[place] [address] (ABNORMAL) Hepatic Function Panel (11/29/2019 2:32 PM EDT) athologist Signature Total Protein 6.3 6.1 - 8.0 [facility] g[facility]/dL [facility] Albumin 3.6 3.2 - 5.2 [facility] gm/dL [facility] AST 257 (H) 0 - 39 [facility] unit/L [facility] ALT 50 0 - 55 [facility] unit/L [facility] Alk Phos 84 40 - 130 [facility] unit/L [facility] Total 0.3 0.2 - 1.3 [facility] Bilirubin mg/dL [facility] Bili, Direct 0.1 0.0 - 0.3 [facility] DOV mg/dL [facility] LABOR[facility]ORY Specimen Anatomical Collection Method Collection Time Receive d Time (Source) Location / / Volume Laterality Blood specimen 11/29/2019 2:32 PM 020 2:32 (specimen) EDT PM EDT Resulting Agency Comment Spec In Lab Gretchen Yoon MD CHEMISTRY ORDERABLES Performing Organization Address City/[facility]/[place] [address] (ABNORMAL) pro-Brain Natriuretic Peptide (11/29/2019 2:32 PM EDT) P athologist Signature ProBNP 272 (H) <=125 pg/mL [facility] LABORATORY Specimen Anatomical Collection Method Collection Time Receive d Time (Source) Location / / Volume Laterality Blood specimen 11/29/2019 2:32 PM 020 2:32 (specimen) EDT PM EDT Resulting Agency Comment Spec In Lab Gretchen Yoon MD CHEMISTRY ORDERABLES Performing Organization Address City/[facility]/[place] [address] Magnesium (11/29/2019 2:32 PM EDT) athologist Signature Magnesium 0.76 0.69 - 1.07 [facility] mmol/L [facility] LABOR[facility]ORY Specimen Anatomical Collection Method Collection Time Receive d Time (Source) Location / / Volume Laterality Blood specimen 11/29/2019 2:32 PM 020 2:32 (specimen) EDT PM EDT Resulting Agency Comment Spec In Lab Gretchen Yoon MD CHEMISTRY ORDERABLES Performing Organization Address City/State/ZIP Code Phon e Number [address] (ABNORMAL) Basic Metabolic Panel (non-fasting) (11/29/2019 2:32 PM EDT) athologist Signature Glucose Lvl 149 65 - 199 [facility] mg/dL [facility] Comment: Diabetes: >=200 mg/dL plus symp toms BUN 16 10 - 20 mg/dL [facility] LABORATORY Creatinine 0.94 0.80 - 1.50 mg/dL [facility] LABORATORY Sodium 135 135 - 145 mmol/L [facility] LABORATORY Potassium 4.5 3.5 - 5.0 mmol/L [facility] LABORATORY Comment: Please note: ??Patients with WBC >100,00 0 may have falsely elevated Potassium levels. ??For accurate Potassium quantif ication in these patients send serum separator tube (gold top) for subsequent determinations. ??Contact the Clinical Chemistry Laboratory if there are any qu estions. Chloride 105 98 - 107 mmol/L [facility] LABORATORY CO2 15 (L) 22 - 31 mmol/L [facility] LABORATORY Anion Gap 15 5 - 15 mmol/L [facility] LABOR[facility]ORY Calcium 8.0 (L) 8.5 - 10.5 mg/dL [facility] LABORATORY Estimated GFR 80 >=60 mL/min/1.73 m?? [facility] LABORATORY Comment: The eGFR was calculated using the CKD-EP I equation. As with all creatinine based estimates of kidney function, eGFR values calculated with the CKD-EPI equation are not accurate in patients wi th acute kidney failure, extremes of body mass or the acutely ill. http://[employer]/DHnkf eGFR 93 >=60 mL/min/1.73 m?? [facility] LABORATORY Comment: The eGFR was calculated using the CKD-EP I equation. As with all creatinine based estimates of kidney function, eGFR values calculated with the CKD-EPI equation are not accurate in patients wi th acute kidney failure, extremes of body mass or the acutely ill. http://[employer]/[facility] MUSKOGEEnkf Specimen Anatomical Collection Method Collection Time Receive d Time (Source) Location / / Volume Laterality Blood specimen 11/29/2019 2:32 PM 020 2:32 (specimen) EDT PM EDT Resulting Agency Comment Spec In Lab Gretchen Yoon MD CHEMISTRY ORDERABLES Performing Organization Address City/[facility] [place] [address] EKG 12 Lead (11/29/2019 11:38 AM EDT) [facility] gist Method Time Signature Ventricular rate 60 BPM MUSE SYSTEM Atrial Rate 60 BPM MUSE SYSTEM P-R Interval 140 ms MUSE SYSTEM QRS Duration 86 ms MUSE SYSTEM Q-T Interval 474 ms MUSE SYSTEM QTC Calculated 474 ms MUSE SYSTEM (Bezet) Calculated P [place] 48 degrees MUSE SYSTEM Calculated R [place] 14 degrees MUSE SYSTEM Calculated T [place] 58 degrees MUSE SYSTEM INTERPRETATION Normal sinus [...] Yoon MD ECG ORDERABLES Performing Organization Address City/[facility]/[place]IP [facility] MUSE SYSTEM CARDIAC CATHETERIZATION (11/29/2019 11:15 AM EDT) Anatomical Region Laterality Modality Other Specimen (Source) Anatomical Location Collection Method / Collectio n Time Received Time / Laterality Volume Narrative 11/30/2019 1:09 PM EDT ?[facility] ? Cardiac Cathete rization/Intervention Report ? Patient Name: Salinas, Angel Luis H. ? Procedure Date: 11/29/2019 ? A #: [id number] ? Primary Physician: Young, Gretchen N ? Case #: [id number] ? File Name: [id number] ? Catheterization Order Number: [id number] ? [facility] ? Final Report [place], [place] ? Patient Name: ? Angel Luis Salinas ? ID#: ?[id number] ? : ?1945 ? Procedure Date: ? [...] procedure was Emergent. The indication for ?the laboratory chief visit is ACS less than or equal [...] dose administered prior to arrival in the laboratory chief. ?Recommended anti-platelet/anti- thrombotic regimen: ?Continue aspirin 81 mg daily fo r indefinitely. ?Continue clopidogrel 75 mg marco a y for 12 months then stop. ?These recommendations are made at the time of the intervention. Patient ?and provider preferences or a c hanging clinical situation may require ?modification of this regimen. C marvult [facility] Interventional Cardiology for ?questions. ? Conclusions: ?* [...] note might be different from the original. [facility] Cardiac Catheterization/Intervention Re port Patient Name: Angel Luis Salinas Procedure Date: 11/29/2019 A #: [id number] Primary Physician: Gretchen Yoon Case #: [id number] File Name: [id number] Catheterization Order Number: [id number] [facility] Final Report [place], [place] Patient Name: Angel Luis Salinas ID#: [id number] : 1945 Procedure Date: November 29, [...] was designated as ASA Class IV. The [facility] clinical frailty scale is 4: Vulnerable. Diagnostic Tests: Electrocardiography: EKG was assessed by ECG. EKG was Abnorm al. EKG showed ST Deviation >= 0.5 mm. Medications Prior to Procedure: Aspirin. Indications for Diagnostic Cath: The priority of the diagnostic procedur e was Emergent. The indication for the laboratory chief visit is ACS less than or equal [...] priority for the procedure was Emergent. The [facility] indication for the procedure was S GAETANO [...] this intervention was 10%. The final TI NV flow was 2. Distal 90% Thrombectomy and [...] this intervention was 10%. The final TI NV flow was 2. Vascular Access: Vascular Access [...] administered prior t o arrival in the laboratory chief. Recommended anti-platelet/anti-thrombot ic regimen: Continue aspirin 81 mg daily for indefi nitely. Continue clopidogrel 75 mg daily for 12 months then stop. These recommendations are made at the t loyda of the intervention. Patient and provider preferences or a changing clinical situation may require modification of this regimen. Consult D [facility] Interventional Cardiology for questions. Conclusions: * Two [...] Signature POC pH 7.33 (L) 7.35 - [facility] 7.45 [facility] LABORATORY POC PCO2 33 (L) 35 - 45 [facility] mmHg [facility] POC PO2 56 (L) 85 - 104 [facility] LABORATORY POC Base Excess -8.0 (L) -3.0 - 3.0 [facility] K mmol/L [facility]OR[facility] POC HCO3 17.4 (L) 20.0 - [facility] 26.0 [facility] mmol/[facility] LABORATORY POC Sodium 137 135 - 145 [facility] mmol/L [facility]OR[facility] POC Potassium 3.6 3.5 - 5.0 [facility] mmol/L [facility] POC Ionized Ca 1.15 1.15 - [facility] 1.33 [facility] P[facility] Hematocrit 37.0 (L) 40.0 - [facility] 51.0 % [facility] POC Calc Hgb 12.6 (L) 13.7 - [facility] 17.5 gm/dL [facility] Comment: The calculation of hemoglobin f rom hematocrit assumes a normal MCHC. POC Bgas Loc CC LAB [facility] LABORATORY Specimen Anatomical Collection Method Collection Time Receive d Time (Source) Location / / Volume Laterality Blood specimen 11/29/2019 9:17 AM 020 7:35 (specimen) EDT AM EDT Gretchen Yoon MD CHEMISTRY ORDERABLES Performing Organization Address City/State/[place] [address] EKG 12 Lead (11/29/2019 9:01 AM EDT) Component Value Ref Range Test Analysis Performed Pathologis t Method Time At Signature Ventricular rate 80 BPM MUSE SYSTEM Atrial Rate 79 BPM MUSE SYSTEM QRS Duration 94 ms MUSE SYSTEM Q-T Interval 436 ms MUSE SYSTEM QTC Calculated 502 ms MUSE SYSTEM (Bezet) Calculated R [place] 54 degrees MUSE SYSTEM Calculated T [place] 80 degrees MUSE SYSTEM INTERPRETATION Normal sinus rhythm MUSE SYSTEM Inferior infarct , possibly acute Prolonged QT * ACUTE NV ?? Consider right ventricular involvement in acute [...] 150 mg, Intravenous, ONCE, 1 dose, On [place] 12/07/19 at 1315, Warning Vesicant/Irritant Medication , [...] mL/hr 250 mL/hr, Intravenous, CONTINUOUS, Starting on [place] 12/07/19 at 0145, Until [place] 12/07/19 at 0239 levoFLOXacin (LEVAQUIN) 750 mg in New Bag 11/30/2019 11:03 PM EDT 750 mg 100 mL/hr dextrose 5% 150 mL 750 mg, Intravenous, at 100 mL/hr, EVERY 24 HOURS, First dose on [place] 11/30/19 at 2300, Until Discontinued, Routine lisinopriL [...] Anderson RN) 08 (Given - Provider: Amaya Anderosn RN) 0900 (Not Giv en - Provider: [...] ONCE, 1 dose, 12/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
Administer for serum potassium (mMol/L) of 3.9 - 4 See instructions for Potassium Protocol in online policies.
Routine Or potassium chloride ER (K-Dur/Klor-Con) tablet 40 mEqJump to med 40 mEq, Oral, EVERY 4 HOURS PRN, Startin g [place] 11/30/19 at 2016, Until Sun12/08/19 at 1811, hypokalemia
Administer for serum potassium (mMol/L) of 3.6 - 3.8 See instructions for Potassium Protocol in online policies.
Routine documented in this encounter Care Teams Screen Printer Relationship Specialty Start Date End Date France Lam MD PCP - General 05/02/13 02/04/20 [address] [place] [address] documented as of this encounter
--- OUTSIDE RECORDS SUMMARY | 2022-03-21 11:06 | XMS_ITS | Encounter Summary ---
:1945 [place] [address] Care Team Providers Name Role Phone France Lam MD Primary Care Provider Reason for Visit Auth/Cert Specialty Diagnoses / Procedures Referred By Contact Refer red To Contact Diagnoses STEMI (ST elevation myocardial infarction) STEMI Procedures CARDIAC CATHETERIZATION Referral ID Status Reason Start Date Expiration Date Visits Requ ested Visits Authorized [id number] 1 1 Encounter Details Date Type Department Care Team Description 11/29/2019 Surgery Cell Stripper Final Gretchen Corral, CARDIAC CATHETERIZATION [facility] [place] [address] [place] [id number] [phone] (Wo rk) Social History Tobacco Use Types [...] Luis Salinas Patient Age: 74 y.o. Language: Tongan Race: White Ethnicity: Not nor Admit date: [...] months on: antiplatelet therapy at discretion of egg sorter - Repeat TTE in 3 months to reassess LV function - Repeat BMP in 1-2 weeks given recent start lisinopril - Referred to lipid clinic for consideration of PCSK-9 inhibitor given STEMI with intolerance of statins - Started on amiodarone this admission for recurrent rapid atrial flutter with rates ~170, recommendcontinued assessment of necessity of rhythm control strategy with egg sorter - Amiodarone monitoring recommendations as below - [...] please contact your inpatient physician through the [facility] Veterinary Radiologist . Issues after hours and on weekends [...] took two full strength aspirinand came to [facility] ED. At there was found to [...] and Compazine. He was transferred directly to [facility] via [facility] for further management. Patient had an emergent PCI with 3 MACARIO stents placed to his RCA, with mild disease of LCX (report pending) at [facility]. He was found to be persistently hypotensive requiring Levo up to 10mcg/min. He was transferred to [facility] after the cath procedure. Bedside RHC showed CI 2.12, PAWP 11, PAP 38/15 indicating hypovolemic state. He received 1L bolus of NS with improvement of his blood pressure to 124/61. History of PAD, HLD - had side reactions to statins - so taking niacin and red rye grain. Chronic active smoker with more than 65 pack years. Family history of ME in father and two uncles. He's takingbaby [...] ip as described above. On arrival at [facility] he was taken for cardiac cath where [...] for the procedure was Emergent. [facility] was STEM[facility] (after [...] number below. Electronically signed by: Estefani Harris [facility] ([phone]), at 11/29/2019 4:[address] Head wo Contrast (Generic) (Exam End: 11/30/2019 10:41 AM) Impression Focal hemorrhage with small amount of adjacent edema projecting in the region of the left optic tract. Thank you for letting us participate in the care of this patient. For questions regarding this report, please contact the number below. Electronically signed by: Angel Luis Barboza MD, [facility] ([phone]), at 11/30/2019 12:[address] Head wo [...] below. Electronically signed by: [facility] ([phone]), at 11/30/2019 5:[address] Angiogram [place] (Exam End: 11/30/2019 4:36 PM) Impression Head CT: Stable hemorrhage in the region of the left optic tract. CTA: Negative exam. No abnormal vasculature in the area of hemorrhage. Thank you for letting us participate in the care of this patient. For questions regarding this report, please contact the number below. Electronically signed by: Angel Luis Barboza MD, [facility] ([phone]), at 11/30/2019 5:04 PM MRI Brain wo [...] Electronically signed by: Angel Luis Barboza MD, [facility] ([phone]), at 12/01/2019 8:02 PM XR Chest One [...] number below. Electronically signed by: Latoya Ivey, [facility] ([phone]), at 11/30/2019 8:[address] Head wo [...] number below. Electronically signed by: Merari Collins [facility] ([phone]), at 12/01/2019 3:53 PM XR Chest One View (Exam End: 12/02/2019 1:00 PM) Impression Slightly increased small bibasilar pleural effusions and atelectasis. Thank you for letting us participate in the care of this patient. For questions regarding this report, please contact the number below. Electronically signed by: Ashly Marley [facility] ([phone]), at 12/02/2019 1:[address] Cardiac for [...] number below. Electronically signed by: Roselyn Luciano [facility] ([phone]), at 12/04/2019 6:16 PM MRI Brain wwo Contrast (Generic) (Exam End: 12/05/2019 7:59 PM) Impression No significant interval change. Thank you for letting us participate in the care of this patient. For questions regarding this report, please contact the number below. Electronically signed by: Merari Collins [facility] ([phone]), at 12/05/2019 10:[address] Head wo [...] number below. Electronically signed by: Merari Collins [facility] ([phone]), at 12/06/2019 10:06 PM Pending Studies and Lab Data: N/A Discharge Conditions/Prognosis: stable Discharge to: home Updated Allergies/ADRs: Allergies Allergen Reactions ??? Penicillins Pt doesn't remember reaction ??? Egnlxuf-Bfz-Smz Reductase Inhibitors Stiff neck, upset stomach, back [...] medications at another hospital and then at [facility] you had a stent placed in a [...] FOR ONE MONTH AND THEN STOP. Your egg sorter may tell you to start this medication again after one year. Clopidogrel (Plavix) 75 mg daily - This medication will help prevent clots from forming in your blood, which will help protect the stent that was placed in your heart vessel. TAKE THIS FOR ONE YEAR ANDTHEN DISCUSS WITH YOUR GLASSWARE FINISHER WHETHER TO STOP. Amiodarone 400mg twice daily [...] follow up: Your primary care provider and egg sorter will manage your blood thinner (apixaban). You do not need lab monitoring of this medication. Diet: Please consume a healthy diet low in cholesterol Follow up Appointments: 12/10/2019 at 3:10PM with PCP Angel Luis Lott Future Appointments Date Time Provider Department Center 12/23/2019 1:30 PM Alfreda Salas APRN [facility] [id number] 12/26/2019 9:40 AM Merlin Sanchez MD [facility] CARD 4A [facility] 12/30/2019 3:40 PM Gretchen Yoon MD [address] Future Appointments and Orders Future Appointments and Orders Future Appointments Provider Department Dept Phone 12/23/2019 1:30 PM Alfreda Salas APRN Neurosurgery at [facility] Arrive at: Home [phone] Please do not come in for this visit. Your provider will call you at the number you provided. 12/26/2019 9:40 AM Merlin Sanchez MD Cardiology at [facility] Arrive at: Home [phone] Please do not come in for this visit. Your provider will call you at the number you provided. 12/30/2019 3:40 PM Gretchen Yoon MD Cardiology at [facility] Arrive at: Home [phone] Please do not come in for this visit. Your provider will call you at the number you provided. Future Orders Complete By Expires Referral to Cardiac Rehab [ASE299 Custom] As directed Process Instructions: If no progress note charted, please enter Clinical details in comments. Scheduling Instructions: Questions: My question or request is: STEMI. Cardiac rehab at [facility] Referral to [facility] [REF43 Custom] As directed Process Instructions: If no progress note charted, please enter Clinical details in comments. Scheduling Instructions: Questions: My question or request is: patient with inferior stemi with history of statin allergy (rash) - please evaluate for psck9 inhibitor. Referral to Home Health - at DISCHARGE [IQE0551 CPT(R)] As directed Process Instructions: Scheduling Instructions: Comments: DOCUMENTATION FOR VNA SERVICES PATIENT'S LOCATION: Angel Luis Corcoran [address] [address] (home) Supervisor Parking Lot's Name: Self In discussion with the attending physician, it is certified that this patient is under his/her care and that MD, or an RAISED PRINTER, ICT SALES REPRESENTATIVE, or PA who is working directly with him/her, had a yokq-go-grdv encounter that meets the physician ovax-qi-risd encounter requirements with this patient on 12/07/2019. [...] for managing ADLs. HOME HEALTH CARE AGENCY: [facility], PHONE: [phone] FAX: [phone] Start of care: 24-48 hours after hospital [...] MD [address] / [place] [address] All A agencies which cover the area of patient's residence have been reviewed, either verbally or in writing, and patient/family have chosen the home health care agency noted. Questions: Agency name and contact information: [facility] Patient location post discharge: Home What services are requested: Registered Nurse Physical Therapy Occupational Therapy Start date: Responsible MD post discharge contact info: PCP Your PCP: France Lam MD [phone] For questions regarding this document or issues relating to this hospitalization on the Cardiology Service, please contact your inpatient physician through the [facility] Veterinary Radiologist . Issues after hours and on weekends will be handled by the In School Suspension Aide on-call. Patient Instructions: Neurology Your Diagnosis: Left [...] follow-up appointment in the neurology clinic at [facility]. See below for the appointment time. If [...] 1:30 PM Alfreda Salas APRN Neurosurgery at [facility] Arrive at: Home [phone] Please do not come in for this visit. Your provider will call you at the number you provided. 12/26/2019 9:40 AM Merlin Sanchez MD Cardiology at [facility] Arrive at: Home [phone] Please do not come in for this visit. Your provider will call you at the number you provided. 12/30/2019 3:40 PM Gretchen Yoon MD Cardiology at [facility] Arrive at: Home [phone] Please do not come in for this visit. Your provider will call you at the number you provided. Future Orders Complete By Expires Referral to Cardiac Rehab [[id number] Custom] As directed Process Instructions: If no progress note charted, please enter Clinical details in comments. Scheduling Instructions: Questions: My question or request is: STEMI. Cardiac rehab at [facility] Referral to [facility] Treatment [facility] [REF43 Custom] As directed Process Instructions: If no progress note charted, please enter Clinical details in comments. Scheduling Instructions: Questions: My question or request is: patient with inferior stemi with history of statin allergy (rash) - please evaluate for psck9 inhibitor. Referral to Home Health - at DISCHARGE [NIZ0826 CPT(R)] As directed Process Instructions: Scheduling Instructions: Comments: DOCUMENTATION FOR VNA SERVICES PATIENT'S LOCATION: [address] [address] (home) Supervisor Parking Lot's Name: Self In discussion with the attending physician, it is certified that this patient is under his/her care and that MD, or an RAISED PRINTER, ICT SALES REPRESENTATIVE, or PA who is working directly with him/her, had a mtxm-ve-bepj encounter that meets the physician yenl-qr-oydl encounter requirements with this patient on 12/07/2019. [...] for managing ADLs. HOME HEALTH CARE AGENCY: [facility], PHONE: [phone] FAX: [phone] Start of care: 24-48 hours after hospital [...] MD [address] / [place] [address] All A agencies which cover the area of patient's residence have been reviewed, either verbally or in writing, and patient/family have chosen the home health care agency noted. Questions: Agency name and contact information: [facility] Patient location post discharge: Home What services are requested: Registered Nurse Physical Therapy Occupational Therapy Start date: Responsible MD post discharge contact info: PCP Discharge References/Attachments Atrial Fibrillation (Tongan) Cardiac Rehabilitation (Tongan) Heart Failure (Tongan) Heart Failure: Limiting Sodium (Tongan) Hemorrhagic Stroke: General Info (Tongan) Smoking: Stopping (Tongan) Stroke Rehabilitation: General Info (Tongan) Pulmonary Embolism (Tongan) Riki Stevens MD PGY-3, Internal Medicine Cardiology S2, #[id number] Associated attestation - Paris Dodd MD - 12/09/2019 4:44 PM EDT Cardiology Attending Discharge Addendum I was the assigned attending egg sorter for this clinical encounter. For the purposes [...] complications include novel onset, paroxysmal atrial fibrillation [[id number]: 5] & L-sided diplopia with potential hemineglect [...] My contact information: Paris Matt MD MPH [address], [place] [address] (office); Pager #[phone] Email: documented in this encounter Discharge Instructions Patient InstructionsFiRiki de jesus MD - 12/02/2019 9:56 AM EDT Images from the original note were not included. Why you were hospitalized: You had a heart attack. You received clot-busting medications at another hospital and then at [facility] you had a stent placed in a [...] FOR ONE MONTH AND THEN STOP. Your egg sorter may tell you to start this medication again after one year. Clopidogrel (Plavix) 75 mg daily - This medication will help prevent clots from forming in your blood, which will help protect the stent that was placed in your heart vessel. TAKE THIS FOR ONE YEAR ANDTHEN DISCUSS WITH YOUR GLASSWARE FINISHER WHETHER TO STOP. Amiodarone 400mg twice daily [...] follow up: Your primary care provider and egg sorter will manage your blood thinner (apixaban). You do not need lab monitoring of this medication. Diet: Please consume a healthy diet low in cholesterol Follow up Appointments: 12/10/2019 at 3:10PM with PCP Angel Luis Lott Future Appointments Date Time Provider Department Center 12/23/2019 1:30 PM Alfreda Salas APRN [facility] [id number] [facility] 12/26/2019 9:40 AM Merlin Sanchez MD [facility] CARD 4A [facility] 12/30/2019 3:40 PM Gretchen Yoon MD [facility] CARD 4A [facility] Future Appointments and Orders Future Appointments and Orders Future Appointments Provider Department Dept Phone 12/23/2019 1:30 PM Alfreda Salas APRN Neurosurgery at [facility] Arrive at: Home [phone] Please do not come in for this visit. Your provider will call you at the number you provided. 12/26/2019 9:40 AM Merlin Sanchez MD Cardiology at [facility] Arrive at: Home [phone] Please do not come in for this visit. Your provider will call you at the number you provided. 12/30/2019 3:40 PM Gretchen Yoon MD Cardiology at [facility] Arrive at: Home [phone] Please do not come in for this visit. Your provider will call you at the number you provided. Future Orders Complete By Expires Referral to Cardiac Rehab [[id number] Custom] As directed Process Instructions: If no progress note charted, please enter Clinical details in comments. Scheduling Instructions: Questions: My question or request is: STEMI. Cardiac rehab at [facility] Referral to [facility] Treatment Center [REF43 Custom] As directed Process Instructions: If no progress note charted, please enter Clinical details in comments. Scheduling Instructions: Questions: My question or request is: patient with inferior stemi with history of statin allergy (rash) - please evaluate for psck9 inhibitor. Referral to Home Health - at DISCHARGE [PBG6054 CPT(R)] As directed Process Instructions: Scheduling Instructions: Comments: DOCUMENTATION FOR VNA SERVICES PATIENT'S LOCATION: [address] [address] (home) Supervisor Parking Lot's Name: Self In discussion with the attending physician, it is certified that this patient is under his/her care and that MD, or an RAISED PRINTER, ICT SALES REPRESENTATIVE, or PA who is working directly with him/her, had a hwvf-jx-ttnw encounter that meets the physician olls-aa-cmii encounter requirements with this patient on 12/07/2019. [...] for managing ADLs. HOME HEALTH CARE AGENCY: [facility], PHONE: [phone] FAX: [phone] Start of care: 24-48 hours after hospital [...] MD [address] / [place] [address] All A agencies which cover the area of patient's residence have been reviewed, either verbally or in writing, and patient/family have chosen the home health care agency noted. Questions: Agency name and contact information: [facility] Patient location post discharge: Home What services are requested: Registered Nurse Physical Therapy Occupational Therapy Start date: Responsible MD post discharge contact info: PCP Your PCP: France Lam MD [phone] For questions regarding this document or issues relating to this hospitalization on the Cardiology Service, please contact your inpatient physician through the [facility] Veterinary Radiologist . Issues after hours and on weekends will be handled by the In School Suspension Aide on-call. Patient Instructions: Neurology Your Diagnosis: Left [...] follow-up appointment in the neurology clinic at [facility]. See below for the appointment time. If you do not have an appointment, you will be called with a time/date for this appointment. ??? Primary Care Provider: Please follow up with your Primary Care Provider within one to 2 weeks ofdischarge. AttachmentsThe following attachments cannot be sent through Care Everywhere. Atrial Fibrillation (Tongan)Cardiac Rehabilitation (Tongan)Heart Failure (Tongan)Heart Failure: Limiting Sodium (Tongan)Hemorrhagic Stroke: General Info (Tongan)Smoking: Stopping (Tongan)Stroke Rehabilitation: General Info (Tongan)Pulmonary Embolism (Tongan)documented in this encounter Medications at Time of [...] consulted in the interim. Vikash Rodriguez Pager: [phone] Paris Dodd MD - 12/08/2019 8:57 AM [...] complications include novel onset, paroxysmal atrial fibrillation [SDL0GV4XQSJ: 5] & L-sided diplopia with potential hemineglect [...] consulted in the interim. Vikash Rodriguez Pager: [phone] Paris Dodd MD - 12/07/2019 9:55 AM [...] complications include novel onset, paroxysmal atrial fibrillation [WYU5UD2XIMQ: 5] & L-sided diplopia with potential hemineglect [...] complications include novel onset, paroxysmal atrial fibrillation [CGW2ZR2TASN: 5] & L-sided diplopia with potential hemineglect [...] complications include novel onset, paroxysmal atrial fibrillation [BAC1PR8VCEI: 5] & L-sided diplopia with potential hemineglect [...] today; additional complications include paroxysmal atrial fibrillation [OFY1GC5URIB: 4] c/b possible cardioembolic stroke, ICH from [...] a non-culprit artery. S/P DESx3 in the mxednhhu-wx-lgmfvz RCA. Aspiration thrombectomy performed, and integrellin bolus [...] complications include novel onset, paroxysmal atrial fibrillation [CCT5IV8NKFT: 5] & L-sided diplopia with potential hemineglect [...] R occipital cardioembolic stroke #Paroxysmal Afib with BE1YJZOS2V score of 5 #New segmental bilateral PEs [...] Glasgow MD PGY1, Internal Medicine Cardiology S2, #[id number] Associated attestation - Paris Dodd MD - 12/05/2019 2:59 PM EDT I was the assigned attending egg sorter for this clinical encounter. For the purposes [...] 12/04/2019 10:36 AM EDT Office of Care Management(OCM)/Flowers Salesperson(CM)/Discharge Planning Service: Cardiology S2 team CM Bernie Alexander,RN,BSN,MA,ACM pgr [phone] Reviewed record and in Cardiology Rounds with MD team,CMs, shipping and receiving, HEALTH CARE SPECIALIST. Pt is anticipated ready for d/c later [...] AD to his PCP and to any [facility] appt for each to have on file. [...] complications include novel onset, paroxysmal atrial fibrillation [QMX9LR8DCWH: 4] & L-sided diplopia with potential hemineglect [...] a non-culprit artery. S/P DESx3 in the zxytwjfc-wz-yicgzk RCA. Aspiration thrombectomy performed, and integrellin bolus [...] complications include novel onset, paroxysmal atrial fibrillation [DTP6QV9SMLW: 5] & L-sided diplopia with potential hemineglect [...] R occipital cardioembolic stroke #Paroxysmal Afib with UF5FQECU3K score of 5 - No anticoagulation for [...] Glasgow MD PGY1, Internal Medicine Cardiology S2, #3098 I have seen the patient and reviewed [...] in my clinic. Gretchen Yoon MD Pager [phone] Derian Pascual RN - 12/03/2019 9:29 AM [...] Discharge: None Electronically signed: Derian Pascual RN, [employer] Salesperson Pgr: [phone] 12/03/2019 9:29 AM Gretchen Yoon [...] complications include novel onset, paroxysmal atrial fibrillation [GAW7GG2YQIN: 4] & L-sided diplopia with potential hemineglect [...] a non-culprit artery. S/P DESx3 in the uezdscqi-sd-qzznqy RCA. Aspiration thrombectomy performed, and integrellin bolus [...] complications include novel onset, paroxysmal atrial fibrillation [DFV8XI7MSYJ: 5] & L-sided diplopia with potential hemineglect [...] MRI showed possible cardioembolic stroke #Afib with LX0AOAUM6X score of 5 - Stroke Team Consulted; appreciate recs - Continue: Plavix and aspirin daily. - Defer: Statin given severe allergy - q4H Neuro Checks - S/P TNK for STEMI on 11/29/19 --Cardiovascular-- Ischemia: # Inferior STEMI [s/p MACAROI x3 to RCA; non-MIRTHA LCx; s/p lytics] [...] Anticoagulation/Arrhythmia # Novel Onset, Paroxsymal Atrial Fibrillation [XUF3XF3NNJF: 5] - Hold off anticoagulation for at [...] w straight cath prn # Nutrition - [facility] Diet, 2g Na. -- Hematology/Oncology-- # Mild [...] Glasgow MD PGY1, Internal Medicine Cardiology S2, #9042 I have seen the patient and reviewed the resident's above history and I agree with the details as written. The assessment and plan were formulated in discussion with me and I agree with them as documented. Gretchen Yoon MD Pager [phone] Raul Hein RN - 12/03/2019 5:55 AM [...] Negative mcL Appearance UA Clear Clear Spec [place] UA 1.026 1.006 - 1.030 Color UA [...] PGY3 Neurology Resident 12/01/2019 Vascular Neurology Pager [phone] Neurology Attending Attestation I evaluated the patient [...] documented. Deepthi Roman MD Vascular Neurology Standard [facility] Swallow Screen: This screen is to be [...] diet as medical provider deems appropriate. Consider INSPECTOR ASSEMBLY consult for full evaluation and diet recommendations. [...] complications include novel onset, paroxysmal atrial fibrillation [QDK5QI4HYRM: 4] & L-sided diplopia with potential hemineglect [...] a non-culprit artery. S/P DESx3 in the skbqfuaw-fp-lvminc RCA. Aspiration thrombectomy performed, and integrellin bolus [...] complications include novel onset, paroxysmal atrial fibrillation [IOG9IQ3MGZV: 5] & L-sided diplopia with potential hemineglect [...] Anticoagulation/Arrhythmia # Novel Onset, Paroxsymal Atrial Fibrillation [DGC3CA0NJXM: 5] - Hold off anticoagulation - pending [...] tamsulosin d/t low BP. # Nutrition - [facility] Diet -- Hematology/Oncology-- # Mild Thrombocytopenia, unclear [...] Glasgow MD PGY1, Internal Medicine Cardiology S2, #2435 I have seen the patient and reviewed [...] the ICU team. Gretchen Yoon MD Pager [phone] Natalia Claros APRN - 12/02/2019 8:38 AM [...] - We are signing off. Please page [phone] with any questions or concerns. For questions please call NS[facility] pager [phone] Natalia Claros APRN 12/02/2019 8:38 AM Clinical Documentation Improvement: Active Hospital Problems Diagnosis ??? Acute ST elevation myocardial infarction (STEMI) of inferior wall ??? Intracranial hemorrhage ??? Hyperlipidemia ??? Tobacco abuse ??? Claudication from peripheral vascular disease, left Resolved Hospital Problems No resolved problems to display. Tello Hsu, PUBLIC HEALTH MICROBIOLOGIST - 12/02/2019 2:06 AM EDT 12/01/192009 Oxygen [...] number below. Electronically signed by: Latoya Ivey [facility] ([phone]), at 11/30/2019 8:32 PM ASSESSMENT: Patient states he is breathing easier than last night. Still increased WOB PLAN: Wean FiO2 as tolerated. Patient to CT Scan in afternoon. Upon arrival back in [facility] placed on low flow NC at 4 [...] complications include novel onset, paroxysmal atrial fibrillation [[id number]: 4] & L-sided diplopia with potential hemineglect for which CVA evaluationto be pursued. Active Problems/Subjective: - 11/28: admitted for inferior STEMI, RV failure requiring pressor - got lytics, aspirin and plavix load, heparin gtt, and eptifibatide. 3 MACARIO stents to RCA. [place] cath - low wedge & CVP so [...] a non-culprit artery. S/P DESx3 in the fyjphiux-xi-znxire RCA. Aspiration thrombectomy performed, and integrellin bolus [...] complications include novel onset, paroxysmal atrial fibrillation [[id number]: 4] & L-sided diplopia with potential hemineglect [...] Anticoagulation/Arrhythmia # Novel Onset, Paroxsymal Atrial Fibrillation [[id number]: 4] - Obtain: TTE - Pending CVA [...] tamsulosin d/t low BP. # Nutrition - [facility] Diet -- Hematology/Oncology-- # Mild Thrombocytopenia, unclear [...] MD, PGY1 PGY3, Internal Medicine Cardiology S2, #[id number] I have seen the patient and reviewed [...] down the line. Gretchen Yoon MD Pager [phone] ?? Gretchen Yoon MD Pager [phone] Natalia Claros APRN - 12/01/2019 1:33 AM [...] per primary team For questions please call [employer] pager [phone] Natalia Claros APRN 12/01/2019 7:42 AM Clinical Documentation Improvement: Active Hospital Problems Diagnosis ??? Acute ST elevation myocardial infarction (STEMI) of inferior wall ??? Intracranial hemorrhage ??? Hyperlipidemia ??? Tobacco abuse ??? Claudication from peripheral vascular disease, left Resolved Hospital Problems No resolved problems to display. Tello Hsu, PUBLIC HEALTH MICROBIOLOGIST - 11/30/2019 8:44 PM EDT Respiratory Therapy [...] number below. Electronically signed by: Latoya Ivey [facility] ([phone]), at 11/30/2019 8:32 PM ASSESSMENT: Patient had [...] EDT Narrative:Visited in response to request for Bathhouse Attendant services. Pt was awake, alert, oriented and in bed. Assessment:Patient coping positively with stresses of illness/hospitalization at this time. Pt says that he is hoping to get better and pt is living with and has children and grandchildren. Pt haspurpose of life and has reason to get getter and to be with family. Outcome: Provided emotional and spiritual support and encouraging presence. Bathhouse Attendant services accepted.Conversation to build trusting relationship.Provided pastoral [...] complications include novel onset, paroxysmal atrial fibrillation [[id number]: 4] & L-sided diplopia with potential hemineglect for which CVA evaluationto be pursued. Active Problems/Subjective: - Overnight, CVP < 12 for which a total of 1 L IVF provided - Today AM, patient complains of subjectively reported, left-sided hemineglect with floaters and diplopia [see: exam]. - Otherwise, c/o neck pain 2/2 R IJ Dallas & L radial A line. Otherwise, denies [...] a non-culprit artery. S/P DESx3 in the bhqdvhpi-zl-xjpqgv RCA. Aspiration thrombectomy performed, and integrellin bolus [...] complications include novel onset, paroxysmal atrial fibrillation [[id number]: 4] & L-sided diplopia with potential hemineglect [...] Anticoagulation/Arrhythmia # Novel Onset, Paroxsymal Atrial Fibrillation [[id number]: 4] - Obtain: TTE to confirm rhythm [...] tamsulosin d/t low BP. # Nutrition - [facility] Diet -- Hematology/Oncology-- # Mild Thrombocytopenia, unclear [...] MD, PGY3 PGY3, Internal Medicine Cardiology S2, #[id number] I have seen the patient and reviewed [...] down the line. Gretchen Yoon MD Pager [phone] Paola Capps RN - 11/30/2019 6:57 AM EDT PT still requiring 4 of levo, several attempts to titrate down (maps in 70;s) But maps would drop toless than 65. Pt very restless in bed Raising and lowering head denies pain . Integrillin stopped [id number] when bottle complete , urine tea colored [...] PCP: France Lam MD PCP phone #: [phone] Supervisor Pig Machine: None ID/Chief Complaint: Chest pain History of Present Illness: 74 y.o male with no significant PMH, was in usual state of health until yesterday when he woke up at 4am this morning with severe crushing substernal chest pain 04/10. He took two full strength aspirin and came to [facility] ED. At there was found to [...] and Compazine. He was transferred directly to [facility] via [facility] for further management. Patient had an emergent PCI with 3 MACARIO stents placed to his RCA, with mild disease of LCX (report pending) at [facility]. He was found to be persistently hypotensive requiring Levo up to 10mcg/min. He was transferred to [facility] after the cath procedure. Bedside RHC showed CI 2.12, PAWP 11, PAP 38/15 indicating hypovolemic state. He received 1L bolus of NS with improvement of his blood pressure to 124/61. History of PAD, HLD - had side reactions to statins - so taking niacin and red rye grain. Chronic active smoker with more than 65 pack years. Family history of ME in father and two uncles. He's takingbaby [...] ??? Penicillins Pt doesn't remember reaction ??? Cqpbvhp-Xqt-Owv Reductase Inhibitors Stiff neck, upset stomach, back pain Family History: Mother: Father: ME 2 Uncles with MIs Social History: Tobacco: Current active smoker 1 ppd. 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 Vitals: Last value Range [...] in the last 7068 hours. Invalid input(s): AATKWNLYSPA7H Heme: No results for input(s): LDH, HAPTOGLOBIN, [...] OSH prior to transfer and PCI at [facility]. Massive inferior STEMI with troponin level 20, currently in CVCC due to pressor requirement. BedsideRHC demonstrated evidence of elevated right sided heart failure, but his wedge was wnl. He received 1L bolus with improvement of his blood pressure and reduction of his pressor requirement. PLAN: Admit to Cardiology, S2 Team Pager # [phone] #Inferior STEMI, LEYLA 149 - Resolving EKG [...] inferior STEMI s/p lytic therapy. Transferred to [facility] and underwent successful PCI of the RCA with MACARIO x3. Gretchen Yoon MD Pager [phone] documented in this encounter Procedure Notes Juventino [...] to the planned procedure. Hand Hygiene: The filler block inserter remover did perform hand hygiene prior to arterial [...] a suspected line-associated infection. Location of Procedure: [facility] Risks and Benefits: The risks and benefits [...] to the planned procedure. Hand Hygiene: The filler block inserter remover did perform hand hygiene prior to line [...] side:right An Introducer (PSI Kit) was used. Ullin. Insertion Side: right. Insertion Site: internal jugular. Catheter Details: Number of Lumens: 1 Catheter Type: heparin-coated The line was placed over a guidewire. Confirmation of Venous Placement: Venous placement was confirmed by transducing the pressure. Introducer Insertion Attempts: 1 Comments: Floating the Dallas-Mo Catheter Attempts: 1 Comments: Sterile Dressing: Biopatch [...] better pt back in SR. Please page [phone] for any more cares or concerns Plan [...] Number OT: 2 Patient Dx: Angel Luis Salnias is a 74 y.o. 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 Baseline Mobility: Independent. Drives. 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 Time IN / OUT: 4257-4258 Total Evaluation Minutes, Physical Therapy: 15(gtx1) Barbara Baldwin, PT Pager: [phone] Physical Therapy Inpatient Rehabilitation Department Plan of [...] he receives all he needs through the [facility]. Consult refused. Romain Tran, MSN, RN-, [facility] Tobacco Passenger Representative [facility] Pager #[phone] Plan of Care - Romain Oglesby OT [...] complications include novel onset, paroxysmal atrial fibrillation [MSI4WS1SVCO: 5] & L-sided diplopia with potential hemineglect [...] and measurable assessment of functional outcome. Pager: [phone] ROMAIN OGLESBY OT 12/03/2019 Occupational Therapy Rehabilitation [...] an outpatient cardiac rehabilitation program at [facility] was discussed. Patient agrees to a referral to this program. His has been a cardiac rehab patient at [facility] and he is familiar with the [...] complications include novel onset, paroxysmal atrial fibrillation [[id number]: 5] & L-sided diplopia with potential hemineglect [...] hand rails). Baseline Mobility: Independent. Drives. 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 Time IN / OUT: 4486-4411 Total Evaluation Minutes, Physical Therapy: 25(eval, gtx1) Barbara Baldwin, PT Pager: [phone] Physical Therapy Inpatient Rehabilitation Department Consult Note - Johanna Nolbes RN - 12/02/2019 12:49 PM EDT Images [...] 31.2 (L) 12/01/2019 Nutritional Intake Current bed: [facility] A.I.R. Assessment: Patient is with an area [...] Please contact JOHANNA NOBLES RN on pager [phone] or the wound care team at [phone] or pager [phone] skin and wound care concerns or questions. [...] Salinas would be surrogate decision maker per [place] surrogate decision making law. Any patient receiving carspousee at [facility] must abide by [place] law. The hierarchy for surrogate decisionmaking is: [...] (i) The agent with financial power of commercial litigation attorney or a conservator appointed in accordance [...] Insurance: N/A Prescription Coverage: Yes Preferred Pharmacy: [place], [place] Other: No Primary Care Provider: France Lam MD [phone] Patient/Caregiver Goals of Treatment: Return home Potential Needs for Transition of Care: Rehab/SNF: Based on discussions with the multi-disciplinary healthcare team, the patient would benefit from SNF level of care at discharge. ?? I have met with the patient to discuss discharge planning needs. I have provided the [facility], Officeof Care Management letter from the [employer] pertaining to rehab referrals. I have also provided a letter describing our affiliations within the [facility] and educated them about their right [...] patient have [facility] to: ?? [facility] [address] [place] [address] ?? [address]. [address] , [place] [address] Note routed to [employer] who will communicate referrals to facilities and provide any required information. Home Health: If therapies recommend home w/ VNA, the patient has been provided a list of Home Health Agencies/DME vendors which serve their preferred geographic area. A letter describing our affiliations was reviewed with them and they were educated about their right to choose where referrals are placed. Patient requests referral to [facility] [employer]. PHONE: [phone] FAX: [phone] Referral routed to the [employer] for matching with agency/vendor and to provide [...] Insured w/ Medicare. Gets medications filled at [facility] in [place], [place]. Son to transport at discharge Plan: Discharge dispo depending on patient's physical recovery; SNF vs home w/ VNA. A member of the Care Management team will continue to monitor progress, follow for continuity of care and assist with transition of care planning. Derian Pascual RN Pager: [phone] Plan of Care - Estefani Encarnacion RN [...] ??? Penicillins Pt doesn't remember reaction ??? Rbbxwsr-Qrc-Mjx Reductase Inhibitors Stiff neck, upset stomach, back [...] noncontrast head CT and CT of the [place] at 1600 hrs. We will [...] vision concerning for stroke. Patient presented to [facility] in transfer for a STEMI after presenting [...] ??? Penicillins Pt doesn't remember reaction ??? Jrhrjte-Oco-Twp Reductase Inhibitors Stiff neck, upset stomach, back [...] file Gets together: Not on file Attends confucianism service: Not on file Active member of [...] L Elbow flexion 5/5 R, 5/5 L Risk Control Representative LE: 5/5 R, 5/5 L Hip flexion [...] PGY3 Neurology Resident 11/30/2019 Vascular Neurology Pager [phone] Standard [facility] Swallow Screen: This screen is to be [...] diet as medical provider deems appropriate. Consider INSPECTOR ASSEMBLY consult for full evaluation and diet recommendations. [...] Afib admitted s/p thrombolysis and Cath-Stent to [facility] who developed R sided visual [...] hours. Evan Mejia MD Department of Neurology [facility] Brief Op Note - Gretchen Yoon MD - 11/29/2019 8:38 PM EDT Brief Operative Note Patient Name: Angel Luis Salinas : [id number] MR#: [id number] Case Date: 11/29/2019 Surgeon: Surgeon(s) and Role: * Gretchen Yoon MD - Primary * Aidan Ward MD - Fellow Preoperative diagnosis: Inferior STEMI Postoperative diagnosis: Inferior STEMI Procedure(s) (LRB): CARDIAC CATHETERIZATION (N/A) Findings: Discrete 90% stenosis in the prox-to-mid RCA. Severe diffuse disease in the distal vessel. Discrete LCX stenosis in a non-culprit artery. S/P DESx3 in the jiqyyrbi-xw-gbiwtr RCA. Aspiration thrombectomy performed, and integrellin bolus [...] are i n the results section. CT [place] W STAT 11/30/2019 4:36 Res [...] athologist Signature Potassium 3.9 3.5 - 5.0 [facility] mmol/L [facility] Comment: Please note: ??Patients with [...] Organization Address City/State/[place] [address] (ABNORMAL) Hemogram (12/08/2019 12:39 PM EDT) Analysis Performed At Patho logist Time Signature WBC 9.9 (H) 4.0 - 9.5 [facility] LABORATORY RBC 4.51 (L) 4.58 - [place] OLIV[place] 5.54 [facility] x10(6)/[facility] LABORATORY Hemoglobin 13.0 (L) 13.7 - [place] 16.5 gm/dL [facility] Hematocrit 40.5 40.5 - [place] 48.5 % [facility] MCV 89.8 82.9 - [facility] OLIVIA 93.1 [facility] LABORATORY MCH 28.8 27.5 - [place] 32.1 pg [facility] MCHC 32.1 32.0 - [place] 35.7 gm/dL [facility] Platelets 214 145 - 357 [facility] x10(3)/[facility] LABORATORY RDWSD 49.2 (H) 36.0 - [place] 45.0 [facility] LABORATORY RDWCV 15.1 (H) 11.4 - [facility] 13.8 % [facility] MPV 12.1 7.6 - 12.9 [facility] OLIVIA [facility] LABORATORY nRBC % Auto 0.0 % [facility] nRBC Abs Auto 0.000 0.000 - [facility] 0.000 [facility] x10(3)/[facility] LABORATORY Specimen Anatomical Collection Method Collection Time Receive d Time (Source) Location / / Volume Laterality Blood specimen 12/08/2019 12:39 0 (specimen) PM EDT 12:47 PM EDT Resulting Agency Comment Spec In Lab Gretchen Yoon MD HEMATOLOGY ORDERABLES Performing Organization Address City/State/ZIP Code Phon e Number [address] Hepatic Function Panel (12/08/2019 6:28 AM EDT) athologist Signature Total Protein 6.6 6.1 - 8.0 [place] gm/dL [facility] Albumin 3.2 3.2 - 5.2 [place] gm/dL [facility] AST 18 0 - 39 [place] unit/L [facility] ALT 13 0 - 55 [facility] OLIVIA unit/L [facility] Alk Phos 64 40 - 130 [facility] OLIVIA unit/L [facility] Total 0.4 0.2 - 1.3 [place] Bilirubin mg/dL [facility] Bili, Direct 0.1 0.0 - 0.3 [facility] OLIVIA mg/dL [facility] Specimen Anatomical Collection Method Collection Time Receive d Time (Source) Location / / Volume Laterality Blood specimen Venous Draw / 12/08/2019 6:28 AM 2019 6:36 (specimen) Unknown EDT AM EDT Resulting Agency Comment Spec In Lab Riki Stevens MD CHEMISTRY ORDERABLES Performing Organization Address City/[facility]/ZIP Code Phon e Number [address] (ABNORMAL) TSH (12/08/2019 6:28 AM EDT) athologist Signature TSH 5.27 (H) 0.27 - 4.20 [employer] mcIU/mL [facility] Specimen Anatomical Collection Method Collection Time Receive d Time (Source) Location / / Volume Laterality Blood specimen Venous Draw / 12/08/2019 6:28 AM 2019 6:36 (specimen) Unknown EDT AM EDT Resulting Agency Comment Spec In Lab Darrell Glasgow MD CHEMISTRY ORDERABLES Performing Organization Address City/[facility]/ZIP Code Phon e Number [address] Potassium (12/08/2019 6:28 AM EDT) P athologist Signature Potassium 4.2 3.5 - 5.0 [facility] mmol/L [facility] Comment: Please note: ??Patients with [...] Organization Address City/State/[place] [address] (ABNORMAL) Differential, Automated (12/08/2019 12:43 AM EDT) Patholo gist Method Time Signature Neutrophils % 60.7 % [facility] Neutr Abs (ANC) 6.81 (H) 1.70 - [facility] 6.10 [facility] x10(3)/[facility] LABORATORY Lymphocytes % 23.4 % [facility] Lymphocytes Abs 2.6 0.9 - 3.2 [facility] x10(3)/[facility] LABORATORY Monocytes % 10.0 % [facility] Monocyte Abs 1.1 (H) 0.3 - 0.9 [facility] x10(3)/[facility] LABORATORY Eosinophils % 3.7 % [facility] Eosinophils Abs 0.4 0.0 - 0.4 [facility] x10(3)/[facility] LABORATORY Basophils % 1.2 % [facility] Basophils Abs 0.1 0.0 - 0.1 [facility] x10(3)/[facility] LABORATORY Immature Gran % 1.00 % [facility] Comment: Immature granulocytes(IG's)percentage an d absolute count will include metamyelocytes, myelocytes, and promyelo cytes. Blood smears from CBCs yielding IG's will be scanned manually for ana nagy. If this scan disagrees with the automated IG or if promyelocytes are not ed, a manual differential will be performed. Pita Gran Abs 0.11 (H) 0.00 - 0.04 x10(3)/[facility] LABORATORY Specimen Anatomical Collection Method Collection Time Receive d Time (Source) Location / / Volume Laterality Blood specimen 12/08/2019 12:43 0 (specimen) AM EDT 12:52 AM EDT Resulting Agency Comment Spec In Lab Riki Stevens MD HEMATOLOGY ORDERABLES Performing Organization Address City/State/[place] [address] (ABNORMAL) Hemogram (12/08/2019 12:43 AM EDT) Analysis Performed At Patho logist Time Signature WBC 11.2 (H) 4.0 - 9.5 [facility] x10(3)/[facility] LABORATORY RBC 4.46 (L) 4.58 - [facility] OLIVIA 5.54 [facility] x10(6)/[facility] LABORATORY Hemoglobin 13.1 (L) 13.7 - [facility] 16.5 gm/dL [facility] Hematocrit 40.5 40.5 - [facility] OLIVIA 48.5 % [facility] MCV 90.8 82.9 - [facility] 93.1 [facility] LABORATORY MCH 29.4 27.5 - [facility] OLIVIA 32.1 pg [facility] MCHC 32.3 32.0 - [facility] OLIVIA 35.7 gm/dL [facility] Platelets 215 145 - 357 [facility] x10(3)/[facility] LABORATORY RDWSD 49.8 (H) 36.0 - [facility] OLIVIA 45.0 [facility] LABORATORY RDWCV 15.2 (H) 11.4 - [facility] OLIVIA 13.8 % [facility] MPV 12.3 7.6 - 12.9 [facility] LABORATORY nRBC % Auto 0.0 % [facility] nRBC Abs Auto 0.000 0.000 - [facility] [employer] 0.000 [facility] x10(3)/[facility] LABORATORY Specimen Anatomical Collection Method Collection Time Receive d Time (Source) Location / / Volume Laterality Blood specimen 12/08/2019 12:43 0 (specimen) AM EDT 12:52 AM EDT Resulting Agency Comment Spec In Lab Riki Stevens MD HEMATOLOGY ORDERABLES Performing Organization Address City/State/ZIP Code Phon e Number [address] Magnesium (12/08/2019 12:43 AM EDT) athologist Signature Magnesium 1.01 0.69 - 1.07 [facility] mmol/L [facility] Specimen Anatomical Collection Method Collection Time Receive d Time (Source) Location / / Volume Laterality Blood specimen 12/08/2019 12:43 0 (specimen) AM EDT 12:52 AM EDT Resulting Agency Comment Spec In Lab Gretchen Yoon MD CHEMISTRY ORDERABLES Performing Organization Address City/State/[place] [address] (ABNORMAL) BMP w/fasting Glucose (12/08/2019 12:43 AM EDT) P athologist Signature Glucose 106 (H) 65 - 99 [facility] Fasting mg/dL [facility] Comment: ?Fasting* Glucose Interpretive C [...] of Diabetes Mellitus, Position Statement from the [place] [employer]. ??Diabete s Care, Volume 33, Supplement 1, Jul 2009 BUN 14 10 - 20 mg/dL [facility] Creatinine 1.16 0.80 - 1.50 mg/dL [facility] Sodium 134 (L) 135 - 145 mmol/L [facility] Potassium 4.0 3.5 - 5.0 mmol/L [facility] Comment: Please note: ??Patients with WBC >100,00 0 may have falsely elevated Potassium levels. ??For accurate Potassium quantif ication in these patients send serum separator tube (gold top) for subsequent determinations. ??Contact the Clinical Chemistry Laboratory if there are any qu estions. Chloride 99 98 - 107 mmol/L [facility] CO2 19 (L) 22 - 31 mmol/L [facility] Anion Gap 16 (H) 5 - 15 mmol/L [facility] Calcium 8.9 8.5 - 10.5 mg/dL [facility] Estimated GFR 62 >=60 mL/min/1.73 m?? [facility] Comment: The eGFR was calculated using the CKD-EP I equation. As with all creatinine based estimates of kidney function, eGFR values calculated with the CKD-EPI equation are not accurate in patients wi th acute kidney failure, extremes of body mass or the acutely ill. [email or web address]/[email or web address] TULSAnkf eGFR 72 >=60 mL/min/1.73 m?? [facility] Comment: The eGFR was calculated using the CKD-EP I equation. As with all creatinine based estimates of kidney function, eGFR values calculated with the CKD-EPI equation are not accurate in patients wi th acute kidney failure, extremes of body mass or the acutely ill. [email or web address] TULSAnkf Specimen Anatomical Collection Method Collection Time Receive d Time (Source) Location / / Volume Laterality Blood specimen 12/08/2019 12:43 0 (specimen) AM EDT 12:52 AM EDT Resulting Agency Comment Spec In Lab Gretchen Yoon MD CHEMISTRY ORDERABLES Performing Organization Address City/State/[place] [address] Heparin (unfractionated) Level (12/08/2019 12:43 AM EDT) athologist Signature Heparin UFH 0.60 IU/[facility] Comment: Guidelines for therapeutic unfractionate d [...] Organization Address City/State/[place] [address] Potassium (12/07/2019 8:39 PM EDT) athologist Signature Potassium 4.1 3.5 - 5.0 [facility] mmol/L [facility] Comment: Please note: ??Patients with [...] Lagos MD CHEMISTRY ORDERABLES Performing Organization Address City/[facility]/[place] [address] Potassium (12/07/2019 4:02 PM EDT) P athologist Signature Potassium 4.0 3.5 - 5.0 MELINA OLIVIA mmol/L [facility] Comment: Please note: ??Patients with [...] Yoon MD CHEMISTRY ORDERABLES Performing Organization Address City/[facility]/[place] [address] (ABNORMAL) Hemogram (12/07/2019 4:02 PM EDT) Analysis Performed At Patho logist Time Signature WBC 17.4 (H) 4.0 - 9.5 MELINA OLIVIA x10(3)/[facility] LABORATORY RBC 4.58 4.58 - [place] OLIVIA 5.54 [facility] x10(6)/[facility] LABORATORY Hemoglobin 13.5 (L) 13.7 - MEL[place] OLIVIA 16.5 gm/dL [facility] Hematocrit 40.8 40.5 - M[place] OLIVIA 48.5 % [facility] MCV 89.1 82.9 - M[place] OLIVIA 93.1 [facility] LABORATORY MCH 29.5 27.5 - M[place] OLIVIA 32.1 pg [facility] MCHC 33.1 32.0 - M[place] OLIVIA 35.7 gm/dL [facility] Platelets 238 145 - 357 MELINA OLIVIA x10(3)/[facility] LABORATORY RDWSD 48.8 (H) 36.0 - M[place] OLIVIA 45.0 [facility] LABORATORY RDWCV 15.0 (H) 11.4 - [facility] 13.8 % [facility] MPV 12.2 7.6 - 12.9 [facility] LABORATORY nRBC % Auto 0.0 % [facility] nRBC Abs Auto 0.000 0.000 - MELINA MARSHOLIVIA 0.000 [facility] x10(3)/[facility] LABORATORY Specimen Anatomical Collection Method Collection Time Receive d Time (Source) Location / / Volume Laterality Blood specimen 12/07/2019 4:02 PM 020 4:08 (specimen) EDT PM EDT Resulting Agency Comment Spec In Lab Gretchen Yoon MD HEMATOLOGY ORDERABLES Performing Organization Address City/[facility] [place] [address] EKG 12 Lead (12/07/2019 [...] (Bezet) Calculated P -12 degrees MUSE SYSTEM Moca Calculated R 10 degrees MUSE SYSTEM Moca Calculated T -138 degrees MUSE SYSTEM Moca INTERPRETATION Supraventricular tachycardia MUSE SYSTEM Low voltage [...] athologist Signature Potassium 4.2 3.5 - 5.0 [facility] mmol/L [facility] Comment: Please note: ??Patients with [...] [place]os MD CHEMISTRY ORDERABLES Performing Organization Address City/[facility] [place] [address] Heparin (unfractionated) Level (12/07/2019 11:43 AM EDT) athologist Signature Heparin UFH 0.59 IU/mL [facility] Comment: Guidelines for therapeutic unfractionate d [...] [place] MD HEMATOLOGY ORDERABLES Performing Organization Address [facility]/[place] [address] Heparin (unfractionated) Level (12/07/2019 5:20 AM EDT) P athologist Signature Heparin UFH 0.53 IU/mL [facility] Comment: Guidelines for therapeutic unfractionate d [...] Organization Address City/State/[place] [address] (ABNORMAL) Differential, Automated (12/07/2019 5:20 AM EDT) Patholo gist Method Time Signature Neutrophils % 62.4 % [facility] Neutr Abs (ANC) 5.46 1.70 - [facility] 6.10 [facility] x10(3)/[facility] LABORATORY Lymphocytes % 20.3 % [facility] Lymphocytes Abs 1.8 0.9 - 3.2 [facility] x10(3)/[facility]ATORY Monocytes % 11.0 % [facility] Monocyte Abs 1.0 (H) 0.3 - 0.9 [facility] x10(3)/[facility]ORY Eosinophils % 4.5 % [facility] Eosinophils Abs 0.4 0.0 - 0.4 [facility] x10(3)/[facility] Basophils % 0.9 % [facility] Basophils Abs 0.1 0.0 - 0.1 [facility] x10(3)/[facility] Immature Gran % 0.90 % [facility] Comment: Immature granulocytes(IG's)percentage an d absolute count will include metamyelocytes, myelocytes, and promyelo cytes. Blood smears from CBCs yielding IG's will be scanned manually for concor dance. If this scan disagrees with the automated IG or if promyelocytes are not ed, a manual differential will be performed. Pita Gran Abs 0.08 (H) 0.00 - 0.04 x10(3)/[facility] LABORATORY Specimen Anatomical Collection Method Collection Time Receive d Time (Source) Location / / Volume Laterality Blood specimen 12/07/2019 5:20 AM 020 5:37 (specimen) EDT AM EDT Resulting Agency Comment Spec In Lab Riki Stevens MD HEMATOLOGY ORDERABLES Performing Organization Address City/State/ZIP Code Phon e Number [place] [id number] (ABNORMAL) Hemogram (12/07/2019 5:20 AM EDT) Analysis Performed At Patho logist Time Signature WBC 8.7 4.0 - 9.5 [facility] x10(3)/[facility] RBC 4.20 (L) 4.58 - [facility] 5.54 [facility] x10(6)/[facility] LABORATORY Hemoglobin 12.3 (L) 13.7 - [facility] 16.5 gm/dL [facility] Hematocrit 37.4 (L) 40.5 - [facility] 48.5 % [facility] MCV 89.0 82.9 - [facility] 93.1 fL [facility] MCH 29.3 27.5 - [facility] 32.1 pg [facility] MCHC 32.9 32.0 - MELINA MONAE 35.7 gm/dL [facility] Platelets 181 145 - 357 MELINA MONAE x10(3)/[facility] LABORATORY RDWSD 47.7 (H) 36.0 - MELINA MONAE 45.0 [facility] LABORATORY RDWCV 14.8 (H) 11.4 - [facility] OLIVIA 13.8 % [facility] MPV 12.3 7.6 - 12.9 MELINA OLIVIA [facility] LABORATORY nRBC % Auto 0.0 % [facility] nRBC Abs Auto 0.000 0.000 - MELINA MONAE 0.000 [facility] x10(3)/[facility] LABORATORY Specimen Anatomical Collection Method Collection Time Receive d Time (Source) Location / / Volume Laterality Blood specimen 12/07/2019 5:20 AM 020 5:37 (specimen) EDT AM EDT Resulting Agency Comment Spec In Lab Riki Stevens MD HEMATOLOGY ORDERABLES Performing Organization Address City/State/ZIP Code Phon e Number [address] Magnesium (12/07/2019 5:20 AM EDT) P athologist Signature Magnesium 0.89 0.69 - 1.07 [facility] mmol/L [facility] Specimen Anatomical Collection Method Collection Time Receive d Time (Source) Location / / Volume Laterality Blood specimen 12/07/2019 5:20 AM 020 5:37 (specimen) EDT AM EDT Resulting Agency Comment Spec In Lab Gretchen Yoon MD CHEMISTRY ORDERABLES Performing Organization Address City/State/ZIP Code Phon e Number [address] (ABNORMAL) BMP w/fasting Glucose (12/07/2019 5:20 AM EDT) P athologist Signature Glucose 100 (H) 65 - 99 [facility] mg/dL [facility] Comment: ?Fasting* Glucose Interpretive C [...] of Diabetes Mellitus, Position Statement from the [place] [employer]. ??Diabete s Care, Volume 33, Supplement 1, Jul 2009 BUN 14 10 - 20 mg/dL [facility] Creatinine 0.83 0.80 - 1.50 mg/dL [facility] Sodium 135 135 - 145 mmol/L [facility] Potassium 3.8 3.5 - 5.0 mmol/L [facility] Comment: Please note: ??Patients with WBC >100,00 0 may have falsely elevated Potassium levels. ??For accurate Potassium quantif ication in these patients send serum separator tube (gold top) for subsequent determinations. ??Contact the Clinical Chemistry Laboratory if there are any qu estions. Chloride 101 98 - 107 mmol/L [facility] CO2 20 (L) 22 - 31 mmol/L [facility] Anion Gap 14 5 - 15 mmol/L [facility] Calcium 8.8 8.5 - 10.5 mg/dL [facility] Estimated GFR 87 >=60 mL/min/1.73 m?? [facility] Comment: The eGFR was calculated using the CKD-EP I equation. As with all creatinine based estimates of kidney function, eGFR values calculated with the CKD-EPI equation are not accurate in patients wi th acute kidney failure, extremes of body mass or the acutely ill. [email or web address] eGFR 101 >=60 mL/min/1.73 m?? [facility] Comment: The eGFR was calculated using the CKD-EP I equation. As with all creatinine based estimates of kidney function, eGFR values calculated with the CKD-EPI equation are not accurate in patients wi th acute kidney failure, extremes of body mass or the acutely ill. [email or web address] Specimen Anatomical Collection Method Collection Time Receive d Time (Source) Location / / Volume Laterality Blood specimen 12/07/2019 5:20 AM 020 5:37 (specimen) EDT AM EDT Resulting Agency Comment Spec In Lab Gretchen Yoon MD CHEMISTRY ORDERABLES Performing Organization Address City/[facility] [place] [address] Heparin (unfractionated) Level (12/06/2019 10:14 PM EDT) athologist Signature Heparin UFH 0.29 IU/mL [facility]ATORY Comment: Guidelines for therapeutic unfractionate d [...] Lagos MD HEMATOLOGY ORDERABLES Performing Organization Address City/[facility]/[place] [address] Head wo Contrast [...] For questions regarding this report, please contact [facility] number below. ? Electronically signed by: Merari Collins [facility] ([phone]), at 12/06/2019 10:06 PM Narrative 12/06/2019 10:06 [...] number below. Electronically signed by: Merari Collins [facility] ([phone]), at 12/06/2019 10:06 PM [place] Lagos MD IMG CT ORDERABLES (ABNORMAL) Hemogram (12/06/2019 4:20 PM EDT) Analysis Performed At Patho logist Time Signature WBC 10.4 (H) 4.0 - 9.5 [facility] x[facility](3[facility] RBC 4.32 (L) 4.58 - [facility] OLIVIA 5.54 [facility] x10(6)/[facility] LABORATORY Hemoglobin 12.5 (L) 13.7 - [facility] 16.5 gm/dL [facility] Hematocrit 38.4 (L) 40.5 - [facility] 48.5 % [facility] MCV 88.9 82.9 - [facility] 93.1 [facility] LABORATORY MCH 28.9 27.5 - MELINA OLIVIA 32.1 pg [facility] MCHC 32.6 32.0 - [facility] 35.7 gm/dL [facility] Platelets 194 145 - 357 [facility] x10(3)/[facility] LAB[facility]ATORY RDWSD 46.9 (H) 36.0 - [facility] 45.0 [facility] LABORATORY RDWCV 14.6 (H) 11.4 - [facility] OLIVIA 13.8 % [facility] MPV 11.9 7.6 - 12.9 [facility] OLIVIA [facility] LABORATORY nRBC % Auto 0.0 % [facility] nRBC Abs Auto 0.000 0.000 - [facility] OLIVIA 0.000 [facility] x10(3)/[facility] LABORATORY Specimen Anatomical Collection Method Collection Time Receive d Time (Source) Location / / Volume Laterality Blood specimen 12/06/2019 4:20 PM 020 4:31 (specimen) EDT PM EDT Resulting Agency Comment Spec In Lab Gretchen Yoon MD HEMATOLOGY ORDERABLES Performing Organization Address City/State/[place] [address] Heparin (unfractionated) Level (12/06/2019 4:20 PM EDT) P athologist Signature Heparin UFH 0.30 IU/mL [facility]ORY Comment: Guidelines for therapeutic unfractionate d [...] Organization Address City/State/[place] [address] Heparin (unfractionated) Level (12/06/2019 10:02 AM EDT) athologist Signature Heparin UFH <0.04 IU/mL [facility]ATORY Comment: Guidelines for therapeutic unfractionate d [...] Organization Address City/State/ZIP Code Phon e Number [address] Magnesium (12/06/2019 3:36 AM EDT) P athologist Signature Magnesium 0.86 0.69 - 1.07 [facility] mmol/L [facility] Specimen Anatomical Collection Method Collection Time Receive d Time (Source) Location / / Volume Laterality Blood specimen 12/06/2019 3:36 AM 020 3:45 (specimen) EDT AM EDT Resulting Agency Comment Spec In Lab Gretchen Yoon MD CHEMISTRY ORDERABLES Performing Organization Address City/State/[place] [address] (ABNORMAL) BMP w/fasting Glucose (12/06/2019 3:36 AM EDT) P athologist Signature Glucose 103 (H) 65 - 99 [facility] Fasting mg/dL [facility] Comment: ?Fasting* Glucose Interpretive C [...] of Diabetes Mellitus, Position Statement from the [place] [employer]. ??Diabete s Care, Volume 33, Supplement 1, Jul 2009 BUN 20 10 - 20 mg/dL [facility] Creatinine 0.88 0.80 - 1.50 mg/dL [facility] Sodium 136 135 - 145 mmol/L [facility] Potassium 4.0 3.5 - 5.0 mmol/L [facility] Comment: Please note: ??Patients with WBC >100,00 0 may have falsely elevated Potassium levels. ??For accurate Potassium quantif ication in these patients send serum separator tube (gold top) for subsequent determinations. ??Contact the Clinical Chemistry Laboratory if there are any qu estions. Chloride 103 98 - 107 mmol/L [facility] CO2 19 (L) 22 - 31 mmol/L [facility] Anion Gap 14 5 - 15 mmol/L [facility] Calcium 8.7 8.5 - 10.5 mg/dL [facility] Estimated GFR 85 >=60 mL/min/1.73 m?? [facility] Comment: The eGFR was calculated using the CKD-EP I equation. As with all creatinine based estimates of kidney function, eGFR values calculated with the CKD-EPI equation are not accurate in patients wi th acute kidney failure, extremes of body mass or the acutely ill. http://IGIGI/[facility] TULSAnkf eGFR 99 >=60 mL/min/1.73 m?? [facility] Comment: The eGFR was calculated using the CKD-EP I equation. As with all creatinine based estimates of kidney function, eGFR values calculated with the CKD-EPI equation are not accurate in patients wi th acute kidney failure, extremes of body mass or the acutely ill. http://IGIGI/[facility] TULSAnkf Specimen Anatomical Collection Method Collection Time Receive d Time (Source) Location / / Volume Laterality Blood specimen 12/06/2019 3:36 AM 020 3:45 (specimen) EDT AM EDT Resulting Agency Comment Spec In Lab Gretchen Yoon MD CHEMISTRY ORDERABLES Performing Organization Address City/State/[place] [address] (ABNORMAL) Hemogram (12/06/2019 3:36 AM EDT) Analysis Performed At Patho logist Time Signature WBC 9.2 4.0 - 9.5 [facility] x10(3[facility]ATORY RBC 3.99 (L) 4.58 - MELINA OLIVIA 5.54 [facility] x10(6)/[facility] LABORATORY Hemoglobin 11.9 (L) 13.7 - MELINA OLIVIA 16.5 gm/dL [facility] Hematocrit 35.5 (L) 40.5 - [facility] 48.5 % [facility] MCV 89.0 82.9 - [facility] 93.1 [facility] LABORATORY MCH 29.8 27.5 - MELINA OLIVIA 32.1 pg [facility] MCHC 33.5 32.0 - MELINA OLIVIA 35.7 gm/dL [facility] Platelets 164 145 - 357 [facility] x10(3)/[facility] LABORATORY RDWSD 47.6 (H) 36.0 - MELINA OLIVIA 45.0 [facility] LABORATORY RDWCV 14.7 (H) 11.4 - [facility] OLIVIA 13.8 % [facility] MPV 11.9 7.6 - 12.9 [facility] LABORATORY nRBC % Auto 0.0 % [facility] nRBC Abs Auto 0.000 0.000 - MELINA OLIVIA 0.000 [facility] x10(3)/[facility] LABORATORY Specimen Anatomical Collection Method Collection Time Receive d Time (Source) Location / / Volume Laterality Blood specimen 12/06/2019 3:36 AM 020 3:45 (specimen) EDT AM EDT Resulting Agency Comment Spec In Lab Gretchen Yoon MD HEMATOLOGY ORDERABLES Performing Organization Address City/[facility]/[place] [address] (ABNORMAL) Differential, Automated (12/05/2019 10:52 PM EDT) [facility] Method Time Signature Neutrophils % 61.9 % [facility] Neutr Abs (ANC) 6.02 1.70 - [facility] 6.10 [facility] x10(3)/[facility] LABORATORY Lymphocytes % 22.4 % [facility] Lymphocytes Abs 2.2 0.9 - 3.2 [facility] x10(3)/[facility]ORY Monocytes % 10.4 % [facility] Monocyte Abs 1.0 (H) 0.3 - 0.9 [facility] x10(3)/[facility]ORATORY Eosinophils % 4.1 % [facility] Eosinophils Abs 0.4 0.0 - 0.4 [facility] x10(3)/[facility]ATORY Basophils % 0.7 % [facility] Basophils Abs 0.1 0.0 - 0.1 [facility] x10(3)/[facility]ORATORY Immature Gran % 0.50 % [facility] Comment: Immature granulocytes(IG's)percentage an d absolute count will include metamyelocytes, myelocytes, and promyelo cytes. Blood smears from CBCs yielding IG's will be scanned manually for concor dance. If this scan disagrees with the automated IG or if promyelocytes are not ed, a manual differential will be performed. Pita Gran Abs 0.05 (H) 0.00 - 0.04 x10(3)/[facility] LABORATORY Specimen Anatomical Collection Method Collection Time Receive d Time (Source) Location / / Volume Laterality Blood specimen 12/05/2019 10:52 0 (specimen) PM EDT 10:59 PM EDT Resulting Agency Comment Spec In Lab Mandi Barrera MD HEMATOLOGY ORDERABLES Performing Organization Address City/State/[place] [address] (ABNORMAL) Hemogram (12/05/2019 10:52 PM EDT) Analysis Performed At [facility] logist Time Signature WBC 9.7 (H) 4.0 - 9.5 [facility] x10(3)/[facility] LABORATORY RBC 4.07 (L) 4.58 - MELINA WHITTENCOCK 5.54 [facility] x10(6)/[facility] LABORATORY Hemoglobin 11.9 (L) 13.7 - MELINA WH[place]OCK 16.5 gm/dL [facility] Hematocrit 36.4 (L) 40.5 - MELINA WHITTENCOCK 48.5 % [facility] MCV 89.4 82.9 - [facility] OLIVIA 93.1 [facility] LABORATORY MCH 29.2 27.5 - MELINA WHITTENCOCK 32.1 pg [facility] MCHC 32.7 32.0 - MELINA WH[place]OCK 35.7 gm/dL [facility] Platelets 167 145 - 357 [facility] x10(3)/[facility] LABORATORY RDWSD 47.7 (H) 36.0 - MELINA WHITTENCOCK 45.[address] [facility] RDWCV 14.6 (H) 11.4 - [facility] 13.8 % [facility] MPV 12.1 7.6 - 12.9 [facility] LABORATORY nRBC % Auto 0.0 % [facility] nRBC Abs Auto 0.000 0.000 - [facility] OLIVIA 0.000 [facility] x10(3)/[facility] LABORATORY Specimen Anatomical Collection Method Collection Time Receive d Time (Source) Location / / Volume Laterality Blood specimen 12/05/2019 10:52 0 (specimen) PM EDT 10:59 PM EDT Resulting Agency Comment Spec In Lab Mandi Barrera MD HEMATOLOGY ORDERABLES Performing Organization Address City/State/[place] [address] Heparin (unfractionated) Level (12/05/2019 10:52 PM EDT) P athologist Signature Heparin UFH <0.04 IU/mL [facility] LABORATORY Comment: Guidelines for therapeutic unfractionate d [...] Organization Address City/State/[place] [address] MRI Brain wwo Contrast [...] Time Signature WBC 8.7 4.0 - 9.5 [facility] x10(3)/[facility]ATORY RBC 4.17 (L) 4.58 - [facility] 5.54 [facility] x10(6)/[facility] LABORATORY Hemoglobin 12.4 (L) 13.7 - [facility] 16.5 gm/dL [facility] Hematocrit 37.0 (L) 40.5 - [facility] 48.5 % [facility] MCV 88.7 82.9 - [facility] 93.1 [facility] LABORATORY MCH 29.7 27.5 - [facility] 32.1 pg [facility] MCHC 33.5 32.0 - [facility] 35.7 gm/dL [facility] Platelets 173 145 - 357 [facility] x10(3)/[facility] LAB[facility]ATORY RDWSD 47.3 (H) 36.0 - [facility] 45.0 [facility] LABORATORY RDWCV 14.6 (H) 11.4 - [facility] 13.8 % [facility] MPV 12.1 7.6 - 12.9 [facility] LABORATORY nRBC % Auto 0.0 % [facility] nRBC Abs Auto 0.000 0.000 - [facility] 0.000 [facility] x10(3)/[facility] LABORATORY Specimen Anatomical Collection Method Collection Time Receive d Time (Source) Location / / Volume Laterality Blood specimen 12/05/2019 1:00 PM 020 1:13 (specimen) EDT PM EDT Resulting Agency Comment Spec In Lab Gretchen Yoon MD HEMATOLOGY ORDERABLES Performing Organization Address City/State/ZIP Code Phon e [place] [address] EKG 12 Lead (12/05/2019 10:52 AM EDT) Component Value Ref Range Test Analysis Performed Pathologis t Method Time At Signature Ventricular rate 72 BPM MUSE SYSTEM Atrial Rate 72 BPM MUSE SYSTEM P-R Interval 138 ms MUSE SYSTEM QRS Duration 96 ms MUSE SYSTEM Q-T Interval 396 ms MUSE SYSTEM QTC Calculated 433 ms MUSE SYSTEM (Bezet) Calculated P Moca 65 degrees MUSE SYSTEM Calculated R Moca 13 degrees MUSE SYSTEM Calculated T Moca 0 degrees MUSE SYSTEM INTERPRETATION Sinus rhythm Occasional Premature ventricular complexe s MUSE SYSTEM Possible Inferior infarct (cited on or before 29-NOV-2019) Abnormal ECG When compared with ECG of 04-DEC-2019 10:43, Sinus rhythm has replaced Atrial fibrillation Vent. rate has decreased BY ??86 BPM Confirmed by MD Ceja Daniel ([id number]) on 12/05/2019 3:55:22 PM Specimen Anatomical Collection Method Collection Time Receive d Time (Source) Location / / Volume Laterality 12/05/2019 10:52 12/05/2019 3:55 AM EDT PM EDT Paris Lagos MD ECG ORDERABLES Performing Organization Address City/State/ZIP Code Phon e Number MUSE SYSTEM Duplex Study for DVT, Bilat legs (12/05/2019 7:00 AM EDT) Component Value Ref Test Analysis Performed At [facility] Range Method Time Signature VB Text Department: Vascular Surgery Lab VASCUBASE Report Patient: [id number] (ANGEL LUIS SALINAS) CPT: 71729 ICD10: I26.99 Referring Physician: GRETCHEN YOON ?? [...] athologist Signature Magnesium 0.87 0.69 - 1.07 [facility] mmol/L [facility] Specimen Anatomical Collection Method Collection Time Receive d Time (Source) Location / / Volume Laterality Blood specimen 12/05/2019 4:18 AM 020 4:31 (specimen) EDT AM EDT Resulting Agency Comment Spec In Lab Gretchen Yoon MD CHEMISTRY ORDERABLES Performing Organization Address City/[facility]/ZIP [place] [address] (ABNORMAL) BMP w/fasting Glucose (12/05/2019 4:18 AM EDT) P athologist Signature Glucose 104 (H) 65 - 99 [facility] Fasting mg/dL [facility] Comment: ?Fasting* Glucose Interpretive C [...] of Diabetes Mellitus, Position Statement from the [place] [employer]. ??Diabete s Care, Volume 33, Supplement 1, Jul 2009 BUN 21 (H) 10 - 20 mg/dL [facility] Creatinine 1.02 0.80 - 1.50 mg/dL [facility] Sodium 136 135 - 145 mmol/L [facility] Potassium 3.9 3.5 - 5.0 mmol/L [facility] Comment: Please note: ??Patients with WBC >100,00 0 may have falsely elevated Potassium levels. ??For accurate Potassium quantif ication in these patients send serum separator tube (gold top) for subsequent determinations. ??Contact the Clinical Chemistry Laboratory if there are any qu estions. Chloride 103 98 - 107 mmol/L [facility] CO2 21 (L) 22 - 31 mmol/L [facility] Anion Gap 12 5 - 15 mmol/L [facility] Calcium 8.8 8.5 - 10.5 mg/dL [facility] Estimated GFR 73 >=60 mL/min/1.73 m?? [facility] Comment: The eGFR was calculated using the CKD-EP I equation. As with all creatinine based estimates of kidney function, eGFR values calculated with the CKD-EPI equation are not accurate in patients wi th acute kidney failure, extremes of body mass or the acutely ill. http://IGIGI/[facility] TULSAnkf eGFR 84 >=60 mL/min/1.73 m?? [facility] Comment: The eGFR was calculated using the CKD-EP I equation. As with all creatinine based estimates of kidney function, eGFR values calculated with the CKD-EPI equation are not accurate in patients wi th acute kidney failure, extremes of body mass or the acutely ill. [email or web address] TULSAnkf Specimen Anatomical Collection Method Collection Time Receive d Time (Source) Location / / Volume Laterality Blood specimen 12/05/2019 4:18 AM 020 4:31 (specimen) EDT AM EDT Resulting Agency Comment Spec In Lab Gretchen Yoon MD CHEMISTRY ORDERABLES Performing Organization Address City/State/[place] [address] (ABNORMAL) Hemogram (12/05/2019 4:18 AM EDT) Analysis Performed At Patho logist Time Signature WBC 8.6 4.0 - 9.5 [facility] x10(3)/[facility] LABORATORY RBC 4.28 (L) 4.58 - [place] 5.54 [facility] x10(6)/[facility] LABORATORY Hemoglobin 12.4 (L) 13.7 - [facility] 16.5 gm/dL [facility] Hematocrit 37.3 (L) 40.5 - [facility] 48.5 % [facility] MCV 87.1 82.9 - [facility] 93.1 [facility] LABORATORY MCH 29.0 27.5 - [facility] 32.1 pg [facility] MCHC 33.2 32.0 - [facility] 35.7 gm/dL [facility] Platelets 163 145 - 357 [facility] x10(3)/[facility] LABORATORY RDWSD 46.4 (H) 36.0 - [facility] 45.0 [facility] LABORATORY RDWCV 14.4 (H) 11.4 - [facility] 13.8 % [facility] MPV 11.7 7.6 - 12.9 [facility] LABORATORY nRBC % Auto 0.0 % [facility] nRBC Abs Auto 0.000 0.000 - [facility] 0.000 [facility] x10(3)/[facility] LABORATORY Specimen Anatomical Collection Method Collection Time Receive d Time (Source) Location / / Volume Laterality Blood specimen 12/05/2019 4:18 AM 020 4:31 (specimen) EDT AM EDT Resulting Agency Comment Spec In Lab Gretchen Yoon MD HEMATOLOGY ORDERABLES Performing Organization Address City/State/[place] [address] Cardiac for Morphology [...] For questions regarding this report, please contact [facility] number below. ? Electronically signed by: Roselyn Luciano [facility] ([phone]), at 12/04/2019 6:16 PM Narrative 12/04/2019 6:16 [...] number below. Electronically signed by: Roselyn Luciano, [facility] ([phone]), at 12/04/2019 6:16 PM Gretchen Yoon MD IMG CT ORDERABLES (ABNORMAL) Hemogram (12/04/2019 12:55 PM EDT) Analysis Performed At Patho logist Time Signature WBC 8.9 4.0 - 9.5 [facility] OLIVIA x10(3)/[facility] LABORATORY RBC 4.69 4.58 - [facility] OLIVIA 5.54 [facility] x10(6)/[facility] LABORATORY Hemoglobin 13.5 (L) 13.7 - [facility] 16.5 gm/dL [facility] Hematocrit 41.7 40.5 - [facility] OLIVIA 48.5 % [facility] MCV 88.9 82.9 - [facility] 93.1 fL [facility] MCH 28.8 27.5 - [place] 32.1 pg [facility] MCHC 32.4 32.0 - [facility] OLIVIA 35.7 gm/dL [facility] Platelets 196 145 - 357 [facility] x10(3)/[facility] LABORATORY RDWSD 46.7 (H) 36.0 - [place] 45.0 [facility] LABORATORY RDWCV 14.5 (H) 11.4 - [place] 13.8 % [facility] MPV 12.1 7.6 - 12.9 [place] [facility] LABORATORY nRBC % Auto 0.0 % [facility] nRBC Abs Auto 0.000 0.000 - [place] 0.000 [facility] x10(3)/[facility] LABORATORY Specimen Anatomical Collection Method Collection Time Receive d Time (Source) Location / / Volume Laterality Blood specimen 12/04/2019 12:55 0 1:06 (specimen) PM EDT PM EDT Resulting Agency Comment Spec In Lab Gretchen Yoon MD HEMATOLOGY ORDERABLES Performing Organization Address City/[facility]/[place] [address] EKG 12 Lead (12/04/2019 10:43 AM EDT) Component Value Ref Range Test Analysis Performed Pathologis t Method Time At Signature Ventricular rate 158 BPM MUSE SYSTEM Atrial Rate 102 BPM MUSE SYSTEM QRS Duration 92 ms MUSE SYSTEM Q-T Interval 294 ms MUSE SYSTEM QTC Calculated 476 ms MUSE SYSTEM (Bezet) Calculated R Moca 17 degrees MUSE SYSTEM Calculated T Moca 90 degrees MUSE SYSTEM INTERPRETATION Atrial fibrillation with rapid ventricular response MUSE SYSTEM Possible Inferior infarct (cited on or before 29-NOV-2019) Abnormal ECG When compared with ECG of 30-NOV-2019 21:07, Atrial fibrillation has replaced Sinus rhythm Vent. rate has increased BY ??65 BPM Confirmed by MD Ceja Daniel ([id number]) on 12/05/2019 8:59:44 AM Specimen Anatomical Collection Method Collection Time Receive d Time (Source) Location / / Volume Laterality 12/04/2019 10:43 12/05/2019 8:59 AM EDT AM EDT Gretchen Yoon MD ECG ORDERABLES Performing Organization Address City/State/ZIP Code Phon e Number MUSE SYSTEM (ABNORMAL) Magnesium (12/04/2019 4:28 AM EDT) P athologist Signature Magnesium 1.17 (H) 0.69 - 1.07 [facility] mmol/L [facility] Specimen Anatomical Collection Method Collection Time Receive d Time (Source) Location / / Volume Laterality Blood specimen 12/04/2019 4:28 AM 020 4:40 (specimen) EDT AM EDT Resulting Agency Comment Spec In Lab Gretchen Yoon MD CHEMISTRY ORDERABLES Performing Organization Address City/State/[place] [address] (ABNORMAL) BMP w/fasting Glucose (12/04/2019 4:28 AM EDT) athologist Signature Glucose 108 (H) 65 - 99 [facility] Fasting mg/dL [facility] Comment: ?Fasting* Glucose Interpretive C [...] of Diabetes Mellitus, Position Statement from the [place] [employer]. ??Diabete s Care, Volume 33, Supplement 1, Jul 2009 BUN 19 10 - 20 mg/dL [facility]ATORY Creatinine 0.89 0.80 - 1.50 mg/dL [facility] Sodium 135 135 - 145 mmol/L [facility] Potassium 4.2 3.5 - 5.0 mmol/L [facility] Comment: Please note: ??Patients with WBC >100,00 0 may have falsely elevated Potassium levels. ??For accurate Potassium quantif ication in these patients send serum separator tube (gold top) for subsequent determinations. ??Contact the Clinical Chemistry Laboratory if there are any qu estions. Chloride 104 98 - 107 mmol/L [facility] CO2 19 (L) 22 - 31 mmol/L [facility] Anion Gap 12 5 - 15 mmol/L [facility]ORY Calcium 8.5 8.5 - 10.5 mg/dL [facility] Estimated GFR 85 >=60 mL/min/1.73 m?? [facility] Comment: The eGFR was calculated using the CKD-EP I equation. As with all creatinine based estimates of kidney function, eGFR values calculated with the CKD-EPI equation are not accurate in patients wi th acute kidney failure, extremes of body mass or the acutely ill. http://IGIGI/[facility]ULSAnk eGFR 98 >=60 mL/min/1.73 m?? [facility] Comment: The eGFR was calculated using the CKD-EP I equation. As with all creatinine based estimates of kidney function, eGFR values calculated with the CKD-EPI equation are not accurate in patients wi th acute kidney failure, extremes of body mass or the acutely ill. http://[email or web address]/[facility]ULSAnkf Specimen Anatomical Collection Method Collection Time Receive d Time (Source) Location / / Volume Laterality Blood specimen 12/04/2019 4:28 AM 020 4:40 (specimen) EDT AM EDT Resulting Agency Comment Spec In Lab Gretchen Yoon MD CHEMISTRY ORDERABLES Performing Organization Address City/State/[place] [address] (ABNORMAL) Hemogram (12/04/2019 4:28 AM EDT) Analysis Performed At Patho logist Time Signature WBC 7.8 4.0 - 9.5 [facility] x10(3)/[facility] LABORATORY RBC 4.10 (L) 4.58 - [facility] 5.54 [facility] x10(6)/[facility] LABORATORY Hemoglobin 12.0 (L) 13.7 - [facility] 16.5 gm/dL [facility] Hematocrit 36.5 (L) 40.5 - [facility] 48.5 % [facility] MCV 89.0 82.9 - [facility] 93.1 fL [facility] MCH 29.3 27.5 - [place] 32.1 pg [facility] MCHC 32.9 32.0 - [place] 35.7 gm/dL [facility] Platelets 151 145 - 357 [place] [facility] x10(3)/[facility] LABORATORY RDWSD 46.9 (H) 36.0 - [place] 45.0 [facility] LABORATORY RDWCV 14.4 (H) 11.4 - [place] 13.8 % [facility] MPV 12.2 7.6 - 12.9 [place] fL [facility] nRBC % Auto 0.0 % [facility] nRBC Abs Auto 0.000 0.000 - [place] MON[place] 0.000 [facility] x10(3)/[facility] LABORATORY Specimen Anatomical Collection Method Collection Time Receive d Time (Source) Location / / Volume Laterality Blood specimen 12/04/2019 4:28 AM 020 4:40 (specimen) EDT AM EDT Resulting Agency Comment Spec In Lab Gretchen Yoon MD HEMATOLOGY ORDERABLES Performing Organization Address City/[facility]/ZIP Code Phon e Number [address] Potassium (12/03/2019 7:55 PM EDT) athologist Signature Potassium 3.9 3.5 - 5.0 [facility] mmol/L [facility] Comment: Please note: ??Patients with [...] Organization Address City/State/ZIP Code Phon e Number [address] Potassium (12/03/2019 1:57 PM EDT) athologist Signature Potassium 3.7 3.5 - 5.0 [place] mmol/L [facility] Comment: Please note: ??Patients with [...] Organization Address City/State/[place] [address] (ABNORMAL) Hemogram (12/03/2019 1:57 PM EDT) Analysis Performed At Patho logist Time Signature WBC 8.8 4.0 - 9.5 [facility] x10(3)/[facility] LABORATORY RBC 4.27 (L) 4.58 - [place] 5.54 [facility] x10(6)/[facility] LABORATORY Hemoglobin 12.5 (L) 13.7 - [place] 16.5 gm/dL [facility] Hematocrit 37.5 (L) 40.5 - [place] 48.5 % [facility] MCV 87.8 82.9 - [place] 93.1 [facility] LABORATORY MCH 29.3 27.5 - [place] 32.1 pg [facility] MCHC 33.3 32.0 - [place] 35.7 gm/dL [facility] Platelets 158 145 - 357 [facility] x10(3)/[facility] LABORATORY RDWSD 46.9 (H) 36.0 - [place] 45.0 [facility] LABORATORY RDWCV 14.5 (H) 11.4 - [place] 13.8 % [facility] MPV 12.2 7.6 - 12.9 [place] [facility] LABORATORY nRBC % Auto 0.0 % [facility] nRBC Abs Auto 0.000 0.000 - [place] 0.000 [facility] x10(3)/[facility] LABORATORY Specimen Anatomical Collection Method Collection Time Receive d Time (Source) Location / / Volume Laterality Blood specimen 12/03/2019 1:57 PM 020 2:21 (specimen) EDT PM EDT Resulting Agency Comment Spec In Lab Gretchen Yoon MD HEMATOLOGY ORDERABLES Performing Organization Address City/State/ZIP Code Phon e Number [address] Magnesium (12/03/2019 4:02 AM EDT) athologist Signature Magnesium 0.79 0.69 - 1.07 [facility] mmol/L [facility] Specimen Anatomical Collection Method Collection Time Receive d Time (Source) Location / / Volume Laterality Blood specimen 12/03/2019 4:02 AM 020 4:16 (specimen) EDT AM EDT Resulting Agency Comment Spec In Lab Gretchen Yoon MD CHEMISTRY ORDERABLES Performing Organization Address City/State/Z[place] [address] (ABNORMAL) BMP w/fasting Glucose (12/03/2019 4:02 AM EDT) P athologist Signature Glucose 100 (H) 65 - 99 [facility] Fasting mg/dL [facility] Comment: ?Fasting* Glucose Interpretive C [...] of Diabetes Mellitus, Position Statement from the [place] [employer]. ??Diabete s Care, Volume 33, Supplement 1, Jul 2009 BUN 17 10 - 20 mg/dL [facility] LABORATORY Creatinine 0.95 0.80 - 1.50 mg/dL [facility] Sodium 136 135 - 145 mmol/L [facility] Potassium 3.4 (L) 3.5 - 5.0 mmol/L [facility] Comment: Please note: ??Patients with WBC >100,00 0 may have falsely elevated Potassium levels. ??For accurate Potassium quantif ication in these patients send serum separator tube (gold top) for subsequent determinations. ??Contact the Clinical Chemistry Laboratory if there are any qu estions. Chloride 103 98 - 107 mmol/L [facility] CO2 18 (L) 22 - 31 mmol/L [facility] Anion Gap 15 5 - 15 mmol/L [facility] LABORATORY Calcium 8.3 (L) 8.5 - 10.5 mg/dL [facility] Estimated GFR 79 >=60 mL/min/1.73 m?? [facility] Comment: The eGFR was calculated using the CKD-EP I equation. As with all creatinine based estimates of kidney function, eGFR values calculated with the CKD-EPI equation are not accurate in patients wi th acute kidney failure, extremes of body mass or the acutely ill. http://IGIGI/[facility] TULSAnkf eGFR 92 >=60 mL/min/1.73 m?? [facility] Comment: The eGFR was calculated using the CKD-EP I equation. As with all creatinine based estimates of kidney function, eGFR values calculated with the CKD-EPI equation are not accurate in patients wi th acute kidney failure, extremes of body mass or the acutely ill. [email or web address] Specimen Anatomical Collection Method Collection Time Receive d Time (Source) Location / / Volume Laterality Blood specimen 12/03/2019 4:02 AM 020 4:16 (specimen) EDT AM EDT Resulting Agency Comment Spec In Lab Gretchen Yoon MD CHEMISTRY ORDERABLES Performing Organization Address City/State/[place] [address] (ABNORMAL) Hemogram (12/03/2019 4:02 AM EDT) Analysis Performed At Patho logist Time Signature WBC 9.1 4.0 - 9.5 [facility] x10(3)/[facility] LABORATORY RBC 4.01 (L) 4.58 - [facility] 5[facility]54 [facility] x10(6)/[facility] LABORATORY Hemoglobin 11.8 (L) 13.7 - [facility] 16.5 gm/dL [facility] Hematocrit 35.6 (L) 40.5 - [facility] 48.5 % [facility] MCV 88.8 82.9 - [facility] 93.1 [facility] LABORATORY MCH 29.4 27.5 - [facility] 32.1 pg [facility] MCHC 33.1 32.0 - [facility] 35.7 gm/dL [facility] Platelets 130 (L) 145 - 357 [facility] x10(3)/[facility] LABORATORY RDWSD 46.6 (H) 36.0 - [facility] 45.0 [facility] LABORATORY RDWCV 14.4 (H) 11.4 - [facility] 13.8 % [facility] MPV 12.4 7.6 - 12.9 [facility] LABORATORY nRBC % Auto 0.0 % [facility] nRBC Abs Auto 0.000 0.000 - [facility] 0.000 [facility] x10(3)/[facility] LABORATORY Specimen Anatomical Collection Method Collection Time Receive d Time (Source) Location / / Volume Laterality Blood specimen 12/03/2019 4:02 AM 020 4:16 (specimen) EDT AM EDT Resulting Agency Comment Spec In Lab Gretchen Yoon MD HEMATOLOGY ORDERABLES Performing Organization Address City/State/[place] [address] XR Chest One View [...] Signature WBC 10.6 (H) 4.0 - 9.5 [facility] x10(3)/[facility] LABORATORY RBC 4.00 (L) 4.58 - [facility] 5.54 [facility] x10(6)/[facility] LABORATORY Hemoglobin 11.9 (L) 13.7 - [facility] 16.5 gm/dL [facility] Hematocrit 35.7 (L) 40.5 - [facility] 48.5 % [facility] MCV 89.3 82.9 - [facility] 93.1 [facility] LABORATORY MCH 29.8 27.5 - [facility] 32.1 pg [facility] MCHC 33.3 32.0 - [facility] 35.7 gm/dL [facility] Platelets 120 (L) 145 - 357 [facility] x10(3)/[facility] LABORATORY RDWSD 47.5 (H) 36.0 - [facility] 45.0 [facility] LABORATORY RDWCV 14.6 (H) 11.4 - [facility] 13.8 % [facility] MPV 12.0 7.6 - 12.9 [facility] LABORATORY nRBC % Auto 0.0 % [facility] nRBC Abs Auto 0.000 0.000 - [facility] 0.000 [facility] x10(3)/[facility] LABORATORY Specimen Anatomical Collection Method Collection Time Receive d Time (Source) Location / / Volume Laterality Blood specimen 12/02/2019 12:50 0 1:22 (specimen) PM EDT PM EDT Resulting Agency Comment Spec In Lab Gretchen Yoon MD HEMATOLOGY ORDERABLES Performing Organization Address City/State/[place] [address] Blue Tube HOLD (12/02/2019 4:55 AM EDT) P athologist Signature Blue Hold Sample in [facility] lab. [facility] Specimen Anatomical Collection Method Collection Time Receive d Time (Source) Location / / Volume Laterality Blood specimen Venous Draw / 12/02/2019 4:55 AM 2019 5:03 (specimen) Unknown EDT AM EDT Darrell Glasgow MD HEMATOLOGY ORDERABLES Performing Organization Address City/State/ZIP Code Phon e Number [address] Magnesium (12/02/2019 4:55 AM EDT) athologist Signature Magnesium 0.85 0.69 - 1.07 [facility] mmol/L [facility] Specimen Anatomical Collection Method Collection Time Receive d Time (Source) Location / / Volume Laterality Blood specimen 12/02/2019 4:55 AM 020 5:02 (specimen) EDT AM EDT Resulting Agency Comment Spec In Lab Gretchen Yoon MD CHEMISTRY ORDERABLES Performing Organization Address City/[facility]/[place]IP [place] [address] (ABNORMAL) BMP w/fasting Glucose (12/02/2019 4:55 AM EDT) athologist Signature Glucose 114 (H) 65 - 99 [facility] Fasting mg/dL [facility] Comment: ?Fasting* Glucose Interpretive C [...] of Diabetes Mellitus, Position Statement from the [place] [employer]. ??Diabete s Care, Volume 33, Supplement 1, Jul 2009 BUN 13 10 - 20 mg/dL [facility] LABORATORY Creatinine 0.93 0.80 - 1.50 mg/dL [facility]OR[facility]ORY Sodium 135 135 - 145 mmol/L [facility] Potassium 3.7 3.5 - 5.0 mmol/L [facility] Comment: Please note: ??Patients with WBC >100,00 0 may have falsely elevated Potassium levels. ??For accurate Potassium quantif ication in these patients send serum separator tube (gold top) for subsequent determinations. ??Contact the Clinical Chemistry Laboratory if there are any qu estions. Chloride 105 98 - 107 mmol/L [facility] CO2 18 (L) 22 - 31 mmol/L [facility] Anion Gap 12 5 - 15 mmol/L [facility] LABORATORY Calcium 8.1 (L) 8.5 - 10.5 mg/dL [facility] Estimated GFR 81 >=60 mL/min/1.73 m?? [facility] Comment: The eGFR was calculated using the CKD-EP I equation. As with all creatinine based estimates of kidney function, eGFR values calculated with the CKD-EPI equation are not accurate in patients wi th acute kidney failure, extremes of body mass or the acutely ill. [email or web address] – TULSAnkf eGFR 94 >=60 mL/min/1.73 m?? [facility] Comment: The eGFR was calculated using the CKD-EP I equation. As with all creatinine based estimates of kidney function, eGFR values calculated with the CKD-EPI equation are not accurate in patients wi th acute kidney failure, extremes of body mass or the acutely ill. [email or web address] – TULSAnkf Specimen Anatomical Collection Method Collection Time Receive d Time (Source) Location / / Volume Laterality Blood specimen 12/02/2019 4:55 AM 020 5:02 (specimen) EDT AM EDT Resulting Agency Comment Spec In Lab Gretchen Yoon MD CHEMISTRY ORDERABLES Performing Organization Address City/State/[place] [address] (ABNORMAL) Hemogram (12/02/2019 4:55 AM EDT) Analysis Performed At Patho logist Time Signature WBC 9.3 4.0 - 9.5 [facility] x10(3)/[facility] LABORATORY RBC 3.71 (L) 4.58 - [place] OLIV[place] 5.54 [facility] x10(6)/[facility] LABORATORY Hemoglobin 10.8 (L) 13.7 - [facility] 16.5 gm/dL [facility] Hematocrit 33.1 (L) 40.5 - [facility] 48.5 % [facility] MCV 89.2 82.9 - [facility] 93.1 [facility] LABORATORY MCH 29.1 27.5 - [facility] 32.1 pg [facility] MCHC 32.6 32.0 - [facility] 35.7 gm/dL [facility] Platelets 93 (L) 145 - 357 [facility] x10(3)/[facility] LABORATORY RDWSD 47.1 (H) 36.0 - [facility] 45.0 [facility] LABORATORY RDWCV 14.6 (H) 11.4 - [facility] 13.8 % [facility] MPV 11.7 7.6 - 12.9 [facility] LABORATORY nRBC % Auto 0.0 % [facility] nRBC Abs Auto 0.000 0.000 - [facility] 0.000 [facility] x10(3)/[facility] LABORATORY Specimen Anatomical Collection Method Collection Time Receive d Time (Source) Location / / Volume Laterality Blood specimen 12/02/2019 4:55 AM 020 5:02 (specimen) EDT AM EDT Resulting Agency Comment Spec In Lab Gretchen Yoon MD HEMATOLOGY ORDERABLES Performing Organization Address City/State/[place] [address] Transfuse 1 unit platelets, [...] For questions regarding this report, please contact [facility] number below. ? Electronically signed by: Angel Luis Barboza MD, [facility] ([phone]), at 12/01/2019 8:02 PM Narrative 12/01/2019 8:02 [...] For questions regarding this report, please contact [facility] number below. Electronically signed by: Angel Luis Barboza MD, [facility] ([phone]), at 12/01/2019 8:02 PM Gretchen Yoon MD IMG MRI ORDERABLES Prepare Platelets, Apheresis (12/01/2019 6:20 PM EDT) P athologist Signature Dispensed? Yes [facility] Specimen Anatomical Collection Method Collection Time Receive d Time (Source) Location / / Volume Laterality Blood specimen 12/01/2019 6:20 PM 020 6:18 (specimen) EDT PM EDT Gretchen Yoon MD BLOOD BANK ORDERABLES Performing Organization Address City/State/ZIP Code Phon e Number [place] [id number]OSP[address] LAB[address]ORY [address] Duplex for DVT, Arm, Unilat (12/01/2019 5:08 PM EDT) Component Value Ref Test Analysis Performed At Patholo gist Range Method Time Signature VB Text Department: Vascular Surgery Lab VASCUBASE Report Patient: [id number] (ANGEL LUIS SALINAS) CPT: 07373 ICD10: R60.0 Referring Physician: GRETCHEN YOON ?? [...] For questions regarding this report, please contact [facility] number below. ? Electronically signed by: Merari Collins [facility] ([phone]), at 12/01/2019 3:53 PM Narrative 12/01/2019 3:53 PM EDT EXAMINATION: CT HEAD WO CONTRAST (GENERIC) CLINICAL HISTORY: Headache, intracranial hemorrhage suspected Serial CT scan: please assess for propag ation of known ICH noted on prior Head CT/imaging. TECHNIQUE: CT head performed without intravenous co ntrast administration. COMPARISON: Head CT 11/30/2019. CT angiogram of the [place] 11/01. FINDINGS: Ventricles are normal in size. Basal cis terns are patent. Unchanged hyperdense 2.3 x 0.7 x 0.6 cm tubular hemorrhage projecting along the course of the left optic tract (axial se [facility] 2 image 16), consistent with [...] Head CT 11/30/2019. CT angiogram of the [place] 11/01. FINDINGS: Ventricles are normal [...] Scan, Peripheral Blood (12/01/2019 12:51 PM EDT) [facility] Method Time Signature Plat Estimate Decreased [facility] RBC Morphology Normal [facility] Giant Less than 1 /HPF [facility] Platelets [facility] Specimen Anatomical Collection Method Collection Time Receive d Time (Source) Location / / Volume Laterality Blood specimen 12/01/2019 12:51 0 1:05 (specimen) PM EDT PM EDT Resulting Agency Comment Spec In Lab Riki Stevens MD HEMATOLOGY ORDERABLES Performing Organization Address City/State/[place] [address] (ABNORMAL) Differential, Automated (12/01/2019 12:51 PM EDT) [facility] Method Time Signature Neutrophils % 74.9 % [facility] Neutr Abs (ANC) 6.34 (H) 1.70 - [facility] 6.10 [facility] x10(3)/[facility] LABORATORY Lymphocytes % 11.4 % [facility] Lymphocytes Abs 1.0 0.9 - 3.2 [facility] x10(3)/[facility] LABORATORY Monocytes % 12.4 % [facility] Monocyte Abs 1.0 (H) 0.3 - 0.9 [facility] x10(3)/[facility] LABORATORY Eosinophils % 0.4 % [facility] Eosinophils Abs 0.0 0.0 - 0.4 [facility] x10(3)/[facility] LABORATORY Basophils % 0.4 % [facility] Basophils Abs 0.0 0.0 - 0.1 [facility] x10(3)/[facility] LABORATORY Immature Gran % 0.50 % [place] [...] Pita Gran Abs 0.04 0.00 - 0.04 x10(3)/[facility] MAR Y [facility] Specimen Anatomical Collection Method Collection Time Receive d Time (Source) Location / / Volume Laterality Blood specimen 12/01/2019 12:51 0 1:05 (specimen) PM EDT PM EDT Resulting Agency Comment Spec In Lab Riki Stevens MD HEMATOLOGY ORDERABLES Performing Organization Address City/State/[place] [address] (ABNORMAL) Hemogram (12/01/2019 12:51 PM EDT) Analysis Performed At Patho logist Time Signature WBC 8.4 4.0 - 9.5 [facility] x10(3)/[facility] LABORATORY RBC 3.69 (L) 4.58 - [facility] 5.54 [facility] x10(6)/[facility] LABORATORY Hemoglobin 10.8 (L) 13.7 - [facility] 16.5 gm/dL [facility] Hematocrit 32.4 (L) 40.5 - [facility] 48.5 % [facility] MCV 87.8 82.9 - [facility] 93.1 [facility] LABORATORY MCH 29.3 27.5 - [facility] OLIVIA 32.1 pg [facility] MCHC 33.3 32.0 - [facility] 35.7 gm/dL [facility] Platelets 72 (L) 145 - 357 [facility] x10(3)/[facility] LABORATORY RDWSD 47.2 (H) 36.0 - [facility] 45.0 [facility] LABORATORY RDWCV 14.6 (H) 11.4 - [facility] 13.8 % [facility] MPV 12.2 7.6 - 12.9 [facility] LABORATORY nRBC % Auto 0.0 % [facility] nRBC Abs Auto 0.000 0.000 - [facility] 0.000 [facility] x10(3)/[facility] LABORATORY Specimen Anatomical Collection Method Collection Time Receive d Time (Source) Location / / Volume Laterality Blood specimen 12/01/2019 12:51 0 1:05 (specimen) PM EDT PM EDT Resulting Agency Comment Spec In Lab Riki Stevens MD HEMATOLOGY ORDERABLES Performing Organization Address City/[facility]/ZIP Code Phon e Number [address] (ABNORMAL) Coox2 (12/01/2019 11:42 AM EDT) Analysis Performed At Patho logist Time Signature pO2 Coox 30 mmHg [facility] Hgb Blood Gas 11.6 (L) 13.7 - [facility] 16.5 gm/dL [facility] O2HB Coox 60.8 % [facility] COHB Coox 0.6 % [facility] Comment: Nonsmokers: 0.5-1.5% COHB Smokers: Variable, but usually less than 10% Toxic: 20-30% COHB Lethal: Greater than 60% COHB METHB Coox 0.6 <=1.5 % [facility] Source Coox Mixed Venous [facility] Specimen Anatomical Collection Method Collection Time Receive d Time (Source) Location / / Volume Laterality Blood specimen 12/01/2019 11:42 0 (specimen) AM EDT 11:42 AM EDT Gretchen Yoon MD CHEMISTRY ORDERABLES Performing Organization Address City/State/[place] [address] Sedimentation rate (12/01/2019 3:55 AM EDT) P athologist Signature Sed Rate 25 3 - 46 [facility] mm/hr [facility] Comment: Effective June 11, 2019 [...] Winn MD HEMATOLOGY ORDERABLES Performing Organization Address City/[facility]/[place] [address] (ABNORMAL) CRP, acute inflammation (12/01/2019 3:55 AM EDT) P athologist Signature CRP 92.5 (H) <=4.9 mg/L [facility] Specimen Anatomical Collection Method Collection Time Receive d Time (Source) Location / / Volume Laterality Blood specimen Venous Draw / 12/01/2019 3:55 AM 2019 4:06 (specimen) Unknown EDT AM EDT Resulting Agency Comment Spec In Lab Rossy Winn MD CHEMISTRY ORDERABLES Performing Organization Address City/[facility]/[place] [address] ABORH Recheck Status (12/01/2019 3:55 AM EDT) [facility] Method Time Signature ABORH Recheck Order Placed [facility] LABORATORY ABORH Type Complete [facility] ED LABORATORY Specimen Anatomical Collection Method Collection Time Receive d Time (Source) Location / / Volume Laterality Blood specimen 12/01/2019 3:55 AM 020 4:15 (specimen) EDT AM EDT Resulting Agency Comment Spec In Lab Lewis Gee MD BLOOD BANK ORDERABLES Performing Organization Address City/[facility]/[place] [address] Antibody screen (12/01/2019 3:55 AM EDT) [facility] Method Time Signature Ab Screen Negative [facility] LABORATORY Expires at 12/04/2019 [facility] [id number] on: [facility] Specimen Anatomical Collection Method Collection Time Receive d Time (Source) Location / / Volume Laterality Blood specimen 12/01/2019 3:55 AM 020 4:15 (specimen) EDT AM EDT Resulting Agency Comment Spec In Lab Lewis Gee MD BLOOD BANK ORDERABLES Performing Organization Address City/State/[place] [address] ABO/Rh Typing (12/01/2019 3:55 AM EDT) athologist Signature ABORh Type AB Pos [facility] Specimen Anatomical Collection Method Collection Time Receive d Time (Source) Location / / Volume Laterality Blood specimen 12/01/2019 3:55 AM 020 4:15 (specimen) EDT AM EDT Resulting Agency Comment Spec In Lab Lewis Gee MD BLOOD BANK ORDERABLES Performing Organization Address City/[facility]/[place] [address] (ABNORMAL) Troponin (12/01/2019 3:55 AM EDT) athologist Signature Troponin-T 4.35 (H) 0.00 - [facility] 0.00 ng/mL [facility] Comment: result rechecked-slw The 99th percentile for Troponin T is le ss than 0.01 ng/mL, any detectable cTnT concentration using this assay should be considered elevated. According to the third universal definit ion of myocardial infarction the following criteria with a clinical prese ntation consistent with acute myocardial ischemia meets the diagnosis for a myocardial infarction (ME). Detection of a rise and/or fall of [...] additional sample may be indicated. Reference: Third [place] Definition of Myocardial Infarction. Journal of the [place] [employer] 2012;60:1581-98 Specimen Anatomical Collection Method Collection Time Receive d Time (Source) Location / / Volume Laterality Blood specimen 12/01/2019 3:55 AM 020 4:00 (specimen) EDT AM EDT Resulting Agency Comment Spec In Lab Gretchen Yoon MD CHEMISTRY ORDERABLES Performing Organization Address City/[facility]/ZIP Code Phon e Number [address] Magnesium (12/01/2019 3:55 AM EDT) P athologist Signature Magnesium 0.96 0.69 - 1.07 [facility] mmol/L [facility] Specimen Anatomical Collection Method Collection Time Receive d Time (Source) Location / / Volume Laterality Blood specimen 12/01/2019 3:55 AM 020 4:00 (specimen) EDT AM EDT Resulting Agency Comment Spec In Lab Gretchen Yoon MD CHEMISTRY ORDERABLES Performing Organization Address City/State/[place] [address] (ABNORMAL) BMP w/fasting Glucose (12/01/2019 3:55 AM EDT) P athologist Signature Glucose 148 (H) 65 - 99 [facility] Fasting mg/dL [facility] Comment: ?Fasting* Glucose Interpretive C [...] of Diabetes Mellitus, Position Statement from the [place] [employer]. ??Diabete s Care, Volume 33, Supplement 1, Jul 2009 BUN 11 10 - 20 mg/dL [facility] Creatinine 0.96 0.80 - 1.50 mg/dL [facility] Sodium 132 (L) 135 - 145 mmol/L [facility] Potassium 4.0 3.5 - 5.0 mmol/L [facility] Comment: Please note: ??Patients with WBC >100,00 0 may have falsely elevated Potassium levels. ??For accurate Potassium quantif ication in these patients send serum separator tube (gold top) for subsequent determinations. ??Contact the Clinical Chemistry Laboratory if there are any qu estions. Chloride 105 98 - 107 mmol/L [facility] CO2 17 (L) 22 - 31 mmol/L [facility] Anion Gap 10 5 - 15 mmol/L [facility] Calcium 7.6 (L) 8.5 - 10.5 mg/dL [facility] Estimated GFR 78 >=60 mL/min/1.73 m?? [facility] Comment: The eGFR was calculated using the CKD-EP I equation. As with all creatinine based estimates of kidney function, eGFR values calculated with the CKD-EPI equation are not accurate in patients wi th acute kidney failure, extremes of body mass or the acutely ill. http://IGIGI/[facility] – TULSAnkf eGFR 91 >=60 mL/min/1.73 m?? [facility] Comment: The eGFR was calculated using the CKD-EP I equation. As with all creatinine based estimates of kidney function, eGFR values calculated with the CKD-EPI equation are not accurate in patients wi th acute kidney failure, extremes of body mass or the acutely ill. [email or web address] Specimen Anatomical Collection Method Collection Time Receive d Time (Source) Location / / Volume Laterality Blood specimen 12/01/2019 3:55 AM 020 4:00 (specimen) EDT AM EDT Resulting Agency Comment Spec In Lab Gretchen Yoon MD CHEMISTRY ORDERABLES Performing Organization Address City/State/ZIP Code Phon e Number [facility] [place] [address] (ABNORMAL) Hemogram (12/01/2019 3:55 AM EDT) Analysis [facility] Time Signature WBC 11.0 (H) 4.0 - 9.5 [facility] x10(3)/[facility] LABORATORY RBC 3.46 (L) 4.58 - [facility] 5.54 [facility] x10(6)/[facility] LABORATORY Hemoglobin 10.2 (L) 13.7 - [facility] 16.5 gm/dL [facility] Hematocrit 31.2 (L) 40.5 - [facility] 48.5 % [facility] MCV 90.2 82.9 - [facility] 93.1 [facility] LABORATORY MCH 29.5 27.5 - [facility] 32.1 pg [facility] MCHC 32.7 32.0 - [facility] 35.7 gm/dL [facility] Platelets 98 (L) 145 - 357 [facility] x10(3)/[facility] LABORATORY RDWSD 47.9 (H) 36.0 - [facility] 45.0 [facility] LABORATORY RDWCV 14.6 (H) 11.4 - [facility] 13.8 % [facility] MPV 12.3 7.6 - 12.9 [facility] LABORATORY nRBC % Auto 0.0 % [facility] nRBC Abs Auto 0.000 0.000 - [facility] 0.000 [facility] x10(3)/[facility] LABORATORY Specimen Anatomical Collection Method Collection Time Receive d Time (Source) Location / / Volume Laterality Blood specimen 12/01/2019 3:55 AM 020 4:00 (specimen) EDT AM EDT Resulting Agency Comment Spec In Lab Gretchen Yoon MD HEMATOLOGY ORDERABLES Performing Organization Address City/State/[place] [address] (ABNORMAL) BLOOD GAS 2 ARTERIAL (11/30/2019 10:39 PM EDT) Analysis Performed At [facility] Time Signature pH Art 7.45 7.35 - [facility] 7.45 [facility] pCO2 Art 23 (L) 35 - 45 [facility] LABORATORY pO2 Art 76 (L) 85 - 104 [facility] LABORATORY HCO3 Art 15.3 (L) 20.0 - [facility] 26.0 [facility] mmol/L [facility] BE Art -8.7 (L) -3.0 - 3.0 [facility] mmol/L [facility] Hgb Blood Gas 11.7 (L) 13.7 - [facility] 16.5 gm/dL [facility] O2HB Art 94.2 94.0 - [facility] 97.0 % [facility] COHB Art 0.5 % [facility] Comment: Nonsmokers: 0.5-1.5% COHB Smokers: Variable, but usually less than 10% Toxic: 20-30% COHB Lethal: Greater than 60% COHB METHB Art 0.6 <=1.5 % [facility] Na Whole Blood 133 (L) 135 - 145 mmol/L [facility] K Whole Blood 3.8 3.5 - 5.0 mmol/L [facility] Comment: Please note: Patients with WBC >100,000 may have falsely elevated Potassium levels. Contact the Clinical Chemistry L aboratory if there are any questions. ICa Whole Blood 1.10 (L) 1.15 - 1.33 mmol/L [facility] Comment: Note: ??Total bilirubin higher than 20 m g/dL may lead to falsely low ionized calcium. CL Whole Blood 109 (H) 98 - 107 mmol/L [facility] Gluc Whole Bld 120 65 - 199 mg/dL [facility] Comment: Diabetes: >=200 mg/dL plus symp toms. Lactate WB 0.8 0.5 - 2.2 mmol/L [facility] FIO2 Art 100 % [facility] PF Ratio Art 76 [facility] Specimen Anatomical Collection Method Collection Time Receive d Time (Source) Location / / Volume Laterality Blood specimen 11/30/2019 10:39 0 (specimen) PM EDT 10:39 PM EDT Gretchen Yoon MD CHEMISTRY ORDERABLES Performing Organization Address City/[facility]/[place] [address] EKG 12 Lead (11/30/2019 [...] (Bezet) Calculated P 12 degrees MUSE SYSTEM [place] Calculated R 19 degrees MUSE SYSTEM [place] Calculated T -47 degrees MUSE SYSTEM [place] INTERPRETATION Sinus rhythm with Premature supraventricular complexes [...] Yoon MD ECG ORDERABLES Performing Organization Address City/[facility]/ZIP Code Phon e Number MUSE SYSTEM (ABNORMAL) Urinalysis Microscopic Exam (11/30/2019 8:40 PM EDT) P athologist Signature RBC UA 27 (H) 0 - 3 /HPF [facility] WBC UA 4 (H) 0 - 3 /HPF [facility] Hyaline Cast 3 (H) 0 - 2 /LPF [facility] Specimen (Source) Anatomical Collection Method Collection Time Re ceived Time Location / / Volume Laterality Urine specimen 11/30/2019 8:40 11/30/2019 obtained via PM EDT 10:51 PM EDT indwelling urinary catheter (specimen) Resulting Agency Comment Spec In Lab Rossy Winn MD URINE ORDERABLES Performing Organization Address City/[facility]/[place] [address] (ABNORMAL) Urinalysis with reflex Culture (11/30/2019 8:40 PM EDT) Patholo gist Method Time Signature Glucose UA Negative Negative [facility] mg/dL [facility] Protein UA Negative Negative [facility] mg[facility]dL [facility] Bilirubin UA Negative Negative [facility] mg/dL [facility] Comment: Clinical correlation required for positi ve Urine Bilirubin results as false positive may occur with some drugs and d rug related products. If a false positive is suspected a serum total bili morales should be considered if clinically indicated. Urobilinogen UA Normal Normal mg/dL [facility] pH UA 5.5 5.0 - 8.0 [facility] Blood UA Moderate (A) Negative mg/dL [facility] Ketones UA 40 (A) Negative mg/dL [facility] Nitrite UA Negative Negative [facility] Leukocytes UA Trace (A) Negative [facility] LABORATORY Appearance UA Clear Clear [facility]ORATORY Spec [place] UA 1.026 1.006 - 1.030 [facility] Color UA Yellow Yellow [facility] Culture Reflexed No [facility] Specimen (Source) Anatomical Collection Method Collection Time Re ceived Time Location / / Volume Laterality Urine specimen 11/30/2019 8:40 11/30/2019 obtained via PM EDT 10:51 PM EDT indwelling urinary catheter (specimen) Resulting Agency Comment Spec In Lab Gretchen Yoon MD URINE ORDERABLES Performing Organization Address City/State/[place] [address] (ABNORMAL) pro-Brain Natriuretic Peptide (11/30/2019 8:30 PM EDT) P athologist Signature ProBNP 2,802 (H) <=125 [facility] pg/mL [facility] Specimen Anatomical Collection Method Collection Time Receive d Time (Source) Location / / Volume Laterality Blood specimen Venous Draw / 11/30/2019 8:30 PM 2019 8:36 (specimen) Unknown EDT PM EDT Resulting Agency Comment Spec In Lab Rossy Winn MD CHEMISTRY ORDERABLES Performing Organization Address City/[facility]/ZIP Code [place] [address] (ABNORMAL) Troponin (11/30/2019 8:30 PM EDT) athologist Signature Troponin-T 5.04 (H) 0.00 - [place] MONAE 0.00 ng/mL [facility] Comment: The 99th percentile for Troponin T is le ss than 0.01 ng/mL, any detectable cTnT concentration using this assay should be considered elevated. According to the third universal definit ion of myocardial infarction the following criteria with a clinical prese ntation consistent with acute myocardial ischemia meets the diagnosis for a myocardial infarction (ME). Detection of a rise and/or fall of [...] additional sample may be indicated. Reference: [place] Definition of Myocardial Infarction. Journal of the [place] College [employer] 2012;60:1581-98 Specimen Anatomical Collection Method Collection Time Receive d Time (Source) Location / / Volume Laterality Blood specimen Venous Draw / 11/30/2019 8:30 PM 2019 8:36 (specimen) Unknown EDT PM EDT Resulting Agency Comment Spec In Lab Rossy Winn MD CHEMISTRY ORDERABLES Performing Organization Address City/[facility]/ZIP Code [place] [address] Magnesium (11/30/2019 8:30 PM EDT) athologist Signature Magnesium 0.79 0.69 - 1.07 MELINA OLIVIA mmol/L [facility] Specimen Anatomical Collection Method Collection Time Receive d Time (Source) Location / / Volume Laterality Blood specimen 11/30/2019 8:30 PM 020 8:35 (specimen) EDT PM EDT Resulting Agency Comment Spec In Lab Gretchen Yoon MD CHEMISTRY ORDERABLES Performing Organization Address City/State/[place] [address] (ABNORMAL) Basic Metabolic Panel (non-fasting) (11/30/2019 8:30 PM EDT) athologist Signature Glucose Lvl 132 65 - 199 [facility] mg/dL [facility] Comment: Diabetes: >=200 mg/dL plus symp toms BUN 12 10 - 20 mg/dL [facility] Creatinine 0.94 0.80 - 1.50 mg/dL [facility] Sodium 136 135 - 145 mmol/L [facility] Potassium 3.9 3.5 - 5.0 mmol/L [facility] Comment: Please note: ??Patients with WBC >100,00 0 may have falsely elevated Potassium levels. ??For accurate Potassium quantif ication in these patients send serum separator tube (gold top) for subsequent determinations. ??Contact the Clinical Chemistry Laboratory if there are any qu estions. Chloride 108 (H) 98 - 107 mmol/L [facility] CO2 17 (L) 22 - 31 mmol/L [facility] Anion Gap 11 5 - 15 mmol/L [facility] Calcium 7.9 (L) 8.5 - 10.5 mg/dL [facility] Estimated GFR 80 >=60 mL/min/1.73 m?? [facility] Comment: The eGFR was calculated using the CKD-EP I equation. As with all creatinine based estimates of kidney function, eGFR values calculated with the CKD-EPI equation are not accurate in patients wi th acute kidney failure, extremes of body mass or the acutely ill. http://IGIGI/DHnkf eGFR 93 >=60 mL/min/1.73 m?? [facility] Comment: The eGFR was calculated using the CKD-EP I equation. As with all creatinine based estimates of kidney function, eGFR values calculated with the CKD-EPI equation are not accurate in patients wi th acute kidney failure, extremes of body mass or the acutely ill. http://IGIGI/DHMCnkf Specimen Anatomical Collection Method Collection Time Receive d Time (Source) Location / / Volume Laterality Blood specimen 11/30/2019 8:30 PM 020 8:35 (specimen) EDT PM EDT Resulting Agency Comment Spec In Lab Gretchen Yoon MD CHEMISTRY ORDERABLES Performing Organization Address City/[facility] [place] [address] Blood culture (11/30/2019 8:30 PM EDT) Patholo gist Method Time Signature Blood Culture No growth MELINA [place]ITT[place]OCK at 5 days. [facility] Specimen Anatomical Collection Method Collection Time Receive d Time (Source) Location / / Volume Laterality Blood specimen 11/30/2019 8:30 PM 020 9:40 (specimen) EDT PM EDT Comment: L HAND Resulting Agency Comment Spec In Lab Gretchen Yoon MD MICROBIOLOGY - BLOOD ORDERAB LES Performing Organization Address City/[facility]/[place] [address] Blood culture (11/30/2019 8:30 PM EDT) Patholo gist Method Time Signature Blood Culture No growth MELINA WHITTENCOCK at 5 days. [facility] Specimen Anatomical Collection Method Collection Time Receive d Time (Source) Location / / Volume Laterality Blood specimen 11/30/2019 8:30 PM 020 9:40 (specimen) EDT PM EDT Comment: R HAND Resulting Agency Comment Spec In Lab Gretchen Yoon MD MICROBIOLOGY - BLOOD ORDERAB LES Performing Organization Address [facility] [place] [address] XR Chest One View [...] Time Signature pH Art 7.45 7.35 - [facility] 7.45 [facility] pCO2 Art 27 (L) 35 - 45 [facility] mmHg [facility] pO2 Art 68 (L) 85 - 104 [facility] LABORATORY HCO3 Art 18.2 (L) 20.0 - [facility] 26.0 [facility] mmol/[facility] BE Art -5.9 (L) -3.0 - 3.0 [facility] mmol/L [facility] Hgb Blood Gas 12.4 (L) 13.7 - [facility] 16.5 gm/dL [facility] O2HB Art 93.1 (L) 94.0 - [facility] 97.0 % [facility] COHB Art 0.8 % [facility] Comment: Nonsmokers: 0.5-1.5% COHB Smokers: Variable, but usually less than 10% Toxic: 20-30% COHB Lethal: Greater than 60% COHB METHB Art 0.4 <=1.5 % [facility] Na Whole Blood 133 (L) 135 - 145 mmol/L [facility] K Whole Blood 3.6 3.5 - 5.0 mmol/L [facility] Comment: Please note: Patients with WBC >100,000 may have falsely elevated Potassium levels. Contact the Clinical Chemistry L aboratory if there are any questions. ICa Whole Blood 1.13 (L) 1.15 - 1.33 mmol/L [facility] Comment: Note: ??Total bilirubin higher than 20 m g/dL may lead to falsely low ionized calcium. CL Whole Blood 108 (H) 98 - 107 mmol/L [facility] Gluc Whole Bld 121 65 - 199 mg/dL [facility] Comment: Diabetes: >=200 mg/dL plus symp toms. Lactate WB 1.2 0.5 - 2.2 mmol/L [facility] Flow Art 5.0 LPM [facility] Specimen Anatomical Collection Method Collection Time Receive d Time (Source) Location / / Volume Laterality Blood specimen 11/30/2019 8:09 PM 020 8:09 (specimen) EDT PM EDT Gretchen Yoon MD CHEMISTRY ORDERABLES Performing Organization Address City/State/[place] [address] Angiogram [place] (11/30/2019 4:36 PM EDT) Anatomical [...] CT HEAD WO CONTRAST (GENERIC), CT ANGIOGRAM [place] CLINICAL HISTORY: Headache, intracranial hemorrhage suspected F/U on known ICH - assessing for propaga tion TECHNIQUE: CT head performed without intravenous co ntrast administration. CT angiogram [place] 65 cc Omnipaque 350 administered [...] HEAD WO CONTRAST (GENERI C), CT ANGIOGRAM [place] CLINICAL HISTORY: Headache, intracranial hemorrhage suspected F/U on known ICH - assessing for propaga tion TECHNIQUE: CT head performed without intravenous co ntrast administration. CT angiogram [place] 65 cc Omnipaque 350 administered [...] CT HEAD WO CONTRAST (GENERIC), CT ANGIOGRAM [place] CLINICAL HISTORY: Headache, intracranial hemorrhage suspected F/U on known ICH - assessing for propaga tion TECHNIQUE: CT head performed without intravenous co ntrast administration. CT angiogram [place] 65 cc Omnipaque 350 administered [...] HEAD WO CONTRAST (GENERI C), CT ANGIOGRAM [place] CLINICAL HISTORY: Headache, intracranial hemorrhage suspected F/U on known ICH - assessing for propaga tion TECHNIQUE: CT head performed without intravenous co ntrast administration. CT angiogram [place] 65 cc Omnipaque 350 administered [...] Electronically signed by: Angel Luis Barboza MD, [facility] ([phone]), at 11/30/2019 5:04 PM Gretchen Yoon MD [...] 453 ms MUSE SYSTEM (Bezet) Calculated P Moca 52 degrees MUSE SYSTEM Calculated R Moca 5 degrees MUSE SYSTEM Calculated T Moca -60 degrees MUSE SYSTEM INTERPRETATION Sinus rhythm [...] Nilo ? (Age): 1945(74y) Med Rec#: ? [id number] ?Sex: ?M ? Site Loc: ? [facility] ?Ht / Wt: ??178(cm)/64(kg) Pt. Loc: ?CCU ? BSA: ?1.8 Study Date: ?? 11/30/2019 ?Pt. Type: Inpatient Tape: ? Referring: GILMER Reading: Tello Mejia ([id number]) Education Program Manager: Friend, Lolita Diagnosis: *ST elevation (STEMI) myocardial [...] Vmax ?0.58 ? m/sec ? MV deceleration kwky465.05 ? m sec ? MV A-wave Vmax [...] ? Mid-Inferior ?Akinetic ? Mid-Inferoseptal ?Normal ? [place]-Septal ? Normal ? [place]-Anterior ? Normal ? [place]-Lateral ?Normal ? [place]-Inferior ? Hypokinetic ? [place]-Tip ?Normal ? This report has been electronically sign ed by: _ Tello Mejia MD ? 11/30/2019 12: 45:27 Images reviewed and interpretation [facility] Cardiac Ultrasound Laboratory Procedure Note Tello Mejia MD - 11/30/2019Formatti ng of this note might be different from the original. Procedure: Transthoracic Echocardiogram Patient: RITA ACOSTA(Age): [birth year](74y) Med Rec#: [id number] Sex: M Site Loc: [facility] Ht / Wt: 178(cm)/64(kg) Pt. Loc: [facility] BSA: 1.8 Study Date: 11/30/2019 Pt. Type: Inpatie nt Tape: Referring: VANGIEJ Reading: Tello Mejia ([id number]) Education Program Manager: Eve Lolita Diagnosis: *ST elevation (STEMI) myocardial [...] MV E-wave Vmax 0.58 m/sec MV deceleration [id number] msec MV A-wave Vmax 0.74 m/sec MV [...] Hypokinetic Mid-Posterolateral Hypokinetic Mid-Inferior Akinetic Mid-Inferoseptal Normal [place]-Septal Normal [place]-Anterior Normal [place]-Lateral Normal [place]-Inferior Hypokinetic [place]-Tip Normal This report has been electronically sign ed by: _ Tello Mejia MD 11/30/2019 12:45:27 Images reviewed and interpretation verif d [facility] Cardiac Ultrasound Laboratory Gretchen Yoon MD ECHO [...] Electronically signed by: Angel Luis Barboza MD, [facility] ([phone]), at 11/30/2019 12:04 PM Narrative 11/30/2019 12:04 [...] [facility] Magnesium 0.88 0.69 - 1.07 [facility]L [facility] Specimen Anatomical Collection Method Collection Time Receive d Time (Source) Location / / Volume Laterality Blood specimen Venous Draw / 11/30/2019 8:30 AM 2019 8:37 (specimen) Unknown EDT AM EDT Resulting Agency Comment Spec In Lab Rossy Winn MD CHEMISTRY ORDERABLES Performing Organization Address City/State/[place] [address] (ABNORMAL) CK (11/30/2019 8:30 AM EDT) athologist [facility] CK, Total 1,645 (H) 0 - 200 [facility] unit/L [facility] Specimen Anatomical Collection Method Collection Time Receive d Time (Source) Location / / Volume Laterality Blood specimen 11/30/2019 8:30 AM 020 8:32 (specimen) EDT AM EDT Resulting Agency Comment Spec In Lab Gretchen Yoon MD CHEMISTRY ORDERABLES Performing Organization Address City/[facility]/ZIP [facility] [place] [address] (ABNORMAL) Troponin (11/30/2019 8:30 AM EDT) athologist [facility] Troponin-T 8.04 (H) 0.00 - MELINA OLIVIA 0.00 ng/mL [facility] Comment: result rechecked-rancho The 99th percentile for Troponin T is le ss than 0.01 ng/mL, any detectable cTnT concentration using this assay should be considered elevated. According to the third universal definit ion of myocardial infarction the following criteria with a clinical prese ntation consistent with acute myocardial ischemia meets the diagnosis for a myocardial infarction (ME). Detection of a rise and/or fall of [...] additional sample may be indicated. Reference: [place] Definition of Myocardial Infarction. Journal of the [place] College of [employer]iology 2012;60:1581-98 Specimen Anatomical Collection Method Collection Time Receive d Time (Source) Location / / Volume Laterality Blood specimen 11/30/2019 8:30 AM 020 8:32 (specimen) EDT AM EDT Resulting Agency Comment Spec In Lab Gretchen Yoon MD CHEMISTRY ORDERABLES Performing Organization Address City/State/[place] [address] EKG 12 Lead (11/30/2019 7:57 AM EDT) Component Value Ref Range Test Analysis Performed Pathologis t Method Time At Signature Ventricular rate 64 BPM MUSE SYSTEM Atrial Rate 64 BPM MUSE SYSTEM P-R Interval 132 ms MUSE SYSTEM QRS Duration 78 ms MUSE SYSTEM Q-T Interval 420 ms MUSE SYSTEM QTC Calculated 433 ms MUSE SYSTEM (Bezet) Calculated P Moca 28 degrees MUSE SYSTEM Calculated R Moca 7 degrees MUSE SYSTEM Calculated T Moca -33 degrees MUSE SYSTEM INTERPRETATION Sinus rhythm [...] Signature Glucose 147 (H) 65 - 99 [facility] Fasting mg/dL [facility] Comment: ?Fasting* Glucose Interpretive C [...] of Diabetes Mellitus, Position Statement from the [place] [employer]. ??Diabete s Care, Volume 33, Supplement 1, Jul 2009 BUN 13 10 - 20 mg/dL [facility] Creatinine 0.90 0.80 - 1.50 mg/dL [facility] Sodium 135 135 - 145 mmol/L [facility] Potassium 3.9 3.5 - 5.0 mmol/L [facility] Comment: Please note: ??Patients with WBC >100,00 0 may have falsely elevated Potassium levels. ??For accurate Potassium quantif ication in these patients send serum separator tube (gold top) for subsequent determinations. ??Contact the Clinical Chemistry Laboratory if there are any qu estions. Chloride 108 (H) 98 - 107 mmol/L [facility] CO2 16 (L) 22 - 31 mmol/L [facility] Anion Gap 11 5 - 15 mmol/L [facility] Calcium 7.5 (L) 8.5 - 10.5 mg/dL [facility] Estimated GFR 84 >=60 mL/min/1.73 m?? [facility] Comment: The eGFR was calculated using the CKD-EP I equation. As with all creatinine based estimates of kidney function, eGFR values calculated with the CKD-EPI equation are not accurate in patients wi th acute kidney failure, extremes of body mass or the acutely ill. [email or web address]/[facility]SAnk eGFR 98 >=60 mL/min/1.73 m?? [facility] Comment: The eGFR was calculated using the CKD-EP I equation. As with all creatinine based estimates of kidney function, eGFR values calculated with the CKD-EPI equation are not accurate in patients wi th acute kidney failure, extremes of body mass or the acutely ill. http://IGIGI/[facility] TULSAnkf Specimen Anatomical Collection Method Collection Time Receive d Time (Source) Location / / Volume Laterality Blood specimen 11/30/2019 2:15 AM 020 2:29 (specimen) EDT AM EDT Resulting Agency Comment Spec In Lab Gretchen Yoon MD CHEMISTRY ORDERABLES Performing Organization Address City/State/ZIP Code Phon e Number [place] [id number] Drive (ABNORMAL) Hemogram (11/30/2019 2:15 AM EDT) Analysis Performed At Patho logist Time Signature WBC 11.2 (H) 4.0 - 9.5 [facility] x10(3)/[facility] LABORATORY RBC 3.83 (L) 4.58 - [facility] 5.54 [facility] x10(6)/[facility] LABORATORY Hemoglobin 11.4 (L) 13.7 - [facility] 16.5 gm/dL [facility] Hematocrit 35.2 (L) 40.5 - [facility] 48.5 % [facility] MCV 91.9 82.9 - [facility] 93.1 fL [facility] MCH 29.8 27.5 - [facility] 32.1 [facility] LABORATORY MCHC 32.4 32.0 - MELINA WHITTENCOCK 35.7 gm/dL [facility] Platelets 122 (L) 145 - 357 MELINA MARSHOLIVIA x10(3)/[facility] LABORATORY RDWSD 49.8 (H) 36.0 - MELINA WHITTENCOCK 45.0 [facility] LABORATORY RDWCV 14.8 (H) 11.4 - MELINA OLIVIA 13.8 % [facility] MPV 12.1 7.6 - 12.9 MELINA MONAE [facility] LABORATORY nRBC % Auto 0.0 % [facility] nRBC Abs Auto 0.000 0.000 - MELINA MARSHOLIVIA 0.000 [facility] x10(3)/[facility] LABORATORY Specimen Anatomical Collection Method Collection Time Receive d Time (Source) Location / / Volume Laterality Blood specimen 11/30/2019 2:15 AM 020 2:29 (specimen) EDT AM EDT Resulting Agency Comment Spec In Lab Gretchen Yoon MD HEMATOLOGY ORDERABLES Performing Organization Address City/[facility]/ZIP Code Phon e Number [address] (ABNORMAL) CK (11/30/2019 2:15 AM EDT) [facility] CK, Total 1,969 (H) 0 - 200 [facility] unit/L [facility] Specimen Anatomical Collection Method Collection Time Receive d Time (Source) Location / / Volume Laterality Blood specimen 11/30/2019 2:15 AM 020 2:29 (specimen) EDT AM EDT Resulting Agency Comment Spec In Lab Gretchen Yoon MD CHEMISTRY ORDERABLES Performing Organization Address City/State/[place] [address] (ABNORMAL) Troponin (11/30/2019 2:15 AM EDT) [facility] Troponin-T 11.73 (H) 0.00 - MELINA WHITTENCOCK 0.00 ng/mL [facility] Comment: result rechecked-slw The 99th percentile for Troponin T is le ss than 0.01 ng/mL, any detectable cTnT concentration using this assay should be considered elevated. According to the third universal definit ion of myocardial infarction the following criteria with a clinical prese ntation consistent with acute myocardial ischemia meets the diagnosis for a myocardial infarction (ME). Detection of a rise and/or fall of [...] additional sample may be indicated. Reference: Third [place] Definition of Myocardial Infarction. Journal of the [place] College of [employer]iology 2012;60:1581-98 result rechecked- The 99th percentile for Troponin T is le ss than 0.01 ng/mL, any detectable cTnT concentration using this assay should be considered elevated. According to the third universal definit ion of myocardial infarction the following criteria with a clinical prese ntation consistent with acute myocardial ischemia meets the diagnosis for a myocardial infarction (ME). Detection of a rise and/or fall of [...] additional sample may be indicated. Reference: [place] Definition of Myocardial Infarction. Journal of the [place] College of Cardiology 2012;60:1581-98 Corrected from 11.73 ng/ml [HI] on 11/29 3:11:51 EDT by Debi Hawley Specimen Anatomical Collection Method Collection Time Receive d Time (Source) Location / / Volume Laterality Blood specimen 11/30/2019 2:15 AM 020 2:29 (specimen) EDT AM EDT Resulting Agency Comment Spec In Lab Gretchen Yoon MD CHEMISTRY ORDERABLES Performing Organization Address City/[facility]/ZIP Code Phon e Number [address] LDL Cholesterol, Direct (11/30/2019 2:15 AM EDT) P athologist Signature LDL Chol 156 mg/dL [facility] LABORATORY Comment: Lowest Risk: <100 mg/dL Lower Risk: 100-129 mg/dL Borderline High Risk: 130-159 mg/dL High Risk: 160-189 mg/dL Very High Risk: >sw=932 mg/dL Specimen Anatomical Collection Method Collection Time Receive d Time (Source) Location / / Volume Laterality Blood specimen 11/30/2019 2:15 AM 020 2:29 (specimen) EDT AM EDT Resulting Agency Comment Spec In Lab Gretchen Yoon MD CHEMISTRY ORDERABLES Performing Organization Address City/[facility]/ZIP Code Phon e Number [address] (ABNORMAL) Hemoglobin A1c (11/30/2019 2:15 AM EDT) Analysis Performed At Patho logist Time Signature Hemoglobin A1C 6.3 (H) 4.3 - 5.6 [facility]ORATORY Comment: Reference Range: 4.3 - [...] Mellitus, Diabetes Care 2013; 36: Suppl. 1, C52-97 Est Avg Gluc See note mg/dL [facility] LAB[facility]ORY Comment: Estimated Average Glucose [...] with hemoglobinopathies. Additional resources are available on [facility] ADA website. Kiko CARBAJAL, Jenn J, Silas R, et al. ??Tr anslating the A1C assay into estimated average glucose values. ??Diabetes Care 2008:31(8):3707-6755. Specimen Anatomical Collection Method Collection Time Receive d Time (Source) Location / / Volume Laterality Blood specimen 11/30/2019 2:15 AM 020 2:29 (specimen) EDT AM EDT Resulting Agency Comment Spec In Lab Gretchen Yoon MD CHEMISTRY ORDERABLES Performing Organization Address City/State/[place] [address] Lipid Panel (Reflex Direct LDL) (11/30/2019 2:15 AM EDT) athologist Signature Chol, Total 195 mg/dL [facility] Comment: Lower Risk: <200 mg/dL Average Risk: 200-239 mg/dL Higher Risk: >pu=824 mg/dL Triglycerides 93 mg/dL [facility] Comment: Average Risk/Lower Risk: <150 mg/dL Borderline High Risk: 150-199 mg/dL High Risk: 200-499 mg/dL Very High Risk: >bd=418 mg/dL HDL 32 mg/dL [facility] Comment: Males: ?? Higher Risk: <40 mg/dL Females: ?? HIgher Risk: <50 mg/dL LDL Cholesterol 144 mg/dL [facility] Comment: Lowest Risk: <100 mg/dL Lower Risk: 100-129 mg/dL Borderline High Risk: 130-159 mg/dL High Risk: 160-189 mg/dL Very High Risk: >jz=797 mg/dL Chol/HDL Ratio 6.1 ratio [facility] Lipid Interpretation See Note [facility] Comment: Lipid management should be guided by a p atient? s ASCVD risk, goals and preferences. ACC/AHA Guidelines recommend high intens ity statin if clinical ASCVD or LDL greater than or equal to 190 mg/dL. http://[employer].Wealink.com/ERD-CFP-Qdtottoaq Adults aged 40-75 with LDL 70-189 mg/dL should have their 10 year ASCVD risk estimated with the ACC/AHA ASCVD risk es timator http://tools.acc.org/VTBCN-Pizd-Kisbtpzr r/ Statin should be discussed if risk [...] Organization Address City/State/[place] [address] (ABNORMAL) CK (11/29/2019 6:35 PM EDT) athologist Signature CK, Total 2,780 (H) 0 - 200 [facility] unit/L [facility] Specimen Anatomical Collection Method Collection Time Receive d Time (Source) Location / / Volume Laterality Blood specimen 11/29/2019 6:35 PM 020 6:53 (specimen) EDT PM EDT Resulting Agency Comment Spec In Lab Gretchen Yoon MD CHEMISTRY ORDERABLES Performing Organization Address City/State/[place] [address] (ABNORMAL) Troponin (11/29/2019 6:35 PM EDT) athologist Signature Troponin-T 17.60 (H) 0.00 - [facility] 0.00 ng/mL [facility] Comment: result rechecked-az The 99th percentile for Troponin T is le ss than 0.01 ng/mL, any detectable cTnT concentration using this assay should be considered elevated. According to the third universal definit ion of myocardial infarction the following criteria with a clinical prese ntation consistent with acute myocardial ischemia meets the diagnosis for a myocardial infarction (ME). Detection of a rise and/or fall of [...] additional sample may be indicated. Reference: [place] Definition of Myocardial Infarction. Journal of the [place] College of [employer]iology 2012;60:1581-98 Specimen Anatomical Collection Method Collection Time Receive d Time (Source) Location / / Volume Laterality Blood specimen 11/29/2019 6:35 PM 020 6:53 (specimen) EDT PM EDT Resulting Agency Comment Spec In Lab Gretchen Yoon MD CHEMISTRY ORDERABLES Performing Organization Address City/State/[place] [address] EKG 12 Lead (11/29/2019 3:58 PM EDT) [facility] gist Method Time Signature Ventricular rate 73 BPM MUSE SYSTEM Atrial Rate 73 BPM MUSE SYSTEM P-R Interval 152 ms MUSE SYSTEM QRS Duration 84 ms MUSE SYSTEM Q-T Interval 404 ms MUSE SYSTEM QTC Calculated 445 ms MUSE SYSTEM (Bezet) Calculated P Moca 50 degrees MUSE SYSTEM Calculated R Moca -4 degrees MUSE SYSTEM Calculated T Moca 19 degrees MUSE SYSTEM INTERPRETATION Sinus rhythm [...] CLINICAL HISTORY: stemi (as entered by [facility] in the order requisition) TECHNIQUE: [...] lung apex is excluded from the imaged [id number]. IMPRESSION: 1. ??New right internal jugular pulmonar [...] lung apex is excluded from the imaged [id number]. Procedure Note Estefani Harris MD - 11/29/2019Formattin [...] lung apex is excluded from the imaged [id number]. IMPRESSION 1. New right internal jugular pulmonary [...] (ABNORMAL) Differential, Automated (11/29/2019 2:32 PM EDT) [facility] Method Time Signature Neutrophils % 83.8 % [facility] Neutr Abs (ANC) 12.12 (H) 1.70 - [facility] 6.10 [facility] x10(3)/[facility] LABORATORY Lymphocytes % 9.1 % [facility] Lymphocytes Abs 1.3 0.9 - 3.2 [facility] x10(3)/[facility] LABORATORY Monocytes % 6.2 % [facility] Monocyte Abs 0.9 0.3 - 0.9 [facility] x10(3)/[facility] LABORATORY Eosinophils % 0.0 % [facility] Eosinophils Abs 0.0 0.0 - 0.4 [facility] x10(3)/[facility] LABORATORY Basophils % 0.3 % [facility] Basophils Abs 0.0 0.0 - 0.1 [facility] x10(3)/[facility] LABORATORY Immature Gran % 0.60 % [facility] Comment: Immature granulocytes(IG's)percentage an d absolute count will include metamyelocytes, myelocytes, and promyelo cytes. Blood smears from CBCs yielding IG's will be scanned manually for concor dance. If this scan disagrees with the automated IG or if promyelocytes are not ed, a manual differential will be performed. Pita Gran Abs 0.08 (H) 0.00 - 0.04 x10(3)/[facility] LABORATORY Specimen Anatomical Collection Method Collection Time Receive d Time (Source) Location / / Volume Laterality Blood specimen 11/29/2019 2:32 PM 020 2:55 (specimen) EDT PM EDT Resulting Agency Comment Spec In Lab Darrell Glasgow MD HEMATOLOGY ORDERABLES Performing Organization Address City/State/[place] [address] (ABNORMAL) Hemogram (11/29/2019 2:32 PM EDT) Analysis Performed At Patho logist Time Signature WBC 14.5 (H) 4.0 - 9.5 [facility] x10(3)/[facility] LABORATORY RBC 4.53 (L) 4.58 - [facility] 5.54 [facility] x10(6)/[facility] LABORATORY Hemoglobin 13.1 (L) 13.7 - [facility] 16.5 gm/dL [facility] Hematocrit 40.8 40.5 - [facility] 48.5 % [facility] MCV 90.1 82.9 - [facility] 93.1 [facility] LABORATORY MCH 28.9 27.5 - [facility] 32.1 pg [facility] MCHC 32.1 32.0 - [facility] 35.7 gm/dL [facility] Platelets 184 145 - 357 [facility] x10(3)/[facility] LABORATORY RDWSD 47.8 (H) 36.0 - [facility] OLIVIA 45.0 [facility] LABORATORY RDWCV 14.5 (H) 11.4 - [facility] OLIVIA 13.8 % [facility] MPV 11.9 7.6 - 12.9 [facility] nRBC % Auto 0.0 % [facility] nRBC Abs Auto 0.000 0.000 - [place] 0.000 [facility] x10(3)/[facility] LABORATORY Specimen Anatomical Collection Method Collection Time Receive d Time (Source) Location / / Volume Laterality Blood specimen 11/29/2019 2:32 PM 020 2:55 (specimen) EDT PM EDT Resulting Agency Comment Spec In Lab Darrell Glasgow MD HEMATOLOGY ORDERABLES Performing Organization Address City/State/ZIP Code Phon e Number [address] (ABNORMAL) CK (11/29/2019 2:32 PM EDT) athologist Signature CK, Total 3,282 (H) 0 - 200 [facility] unit/L [facility] Specimen Anatomical Collection Method Collection Time Receive d Time (Source) Location / / Volume Laterality Blood specimen 11/29/2019 2:32 PM 020 2:32 (specimen) EDT PM EDT Resulting Agency Comment Spec In Lab Gretchen Yoon MD CHEMISTRY ORDERABLES Performing Organization Address City/[facility] [place] [address] (ABNORMAL) Troponin (11/29/2019 2:32 PM EDT) athologist Signature Troponin-T 20.33 (H) 0.00 - [place] 0.00 ng/mL [facility] Comment: The 99th percentile for Troponin T is le ss than 0.01 ng/mL, any detectable cTnT concentration using this assay should be considered elevated. According to the third universal definit ion of myocardial infarction the following criteria with a clinical prese ntation consistent with acute myocardial ischemia meets the diagnosis for a myocardial infarction (ME). Detection of a rise and/or fall of [...] additional sample may be indicated. Reference: Third [place] Definition of Myocardial Infarction. Journal of the [place] [employer] 2012;60:1581-98 Specimen Anatomical Collection Method Collection Time Receive d Time (Source) Location / / Volume Laterality Blood specimen 11/29/2019 2:32 PM 020 2:32 (specimen) EDT PM EDT Resulting Agency Comment Spec In Lab Gretchen Yoon MD CHEMISTRY ORDERABLES Performing Organization Address [facility] [place] [address] (ABNORMAL) APTT (11/29/2019 2:32 PM EDT) P athologist Signature PTT 114 25 - 37 [facility] (Critical) [facility] LABORATORY Comment: Critical Result called by ?? [...] Yoon MD HEMATOLOGY ORDERABLES Performing Organization Address [facility] [place] [address] (ABNORMAL) Prothrombin Time (11/29/2019 2:32 PM EDT) P athologist Signature PT 13.5 (H) 9.4 - 12.5 [facility] LABORATORY INR 1.2 [facility] Comment: An INR <2.0 indicates [...] Organization Address City/State/[place] [address] (ABNORMAL) Hepatic Function Panel (11/29/2019 2:32 PM EDT) P athologist Signature Total Protein 6.3 6.1 - 8.0 [facility] gm/dL [facility] Albumin 3.6 3.2 - 5.2 [facility] gm/dL [facility] AST 257 (H) 0 - 39 [facility]L [facility] ALT 50 0 - 55 [facility]L [facility] Alk Phos 84 40 - 130 [facility]L [facility] Total 0.3 0.2 - 1.3 [facility] Bilirubin mg/dL [facility] Bili, Direct 0.1 0.0 - 0.3 [facility] OL[place]IA mg/dL [facility] Specimen Anatomical Collection Method Collection Time Receive d Time (Source) Location / / Volume Laterality Blood specimen 11/29/2019 2:32 PM 020 2:32 (specimen) EDT PM EDT Resulting Agency Comment Spec In Lab Gretchen Yoon MD CHEMISTRY ORDERABLES Performing Organization Address City/[facility]/[place] [address] (ABNORMAL) pro-Brain Natriuretic Peptide (11/29/2019 2:32 PM EDT) P athologist Signature ProBNP 272 (H) <=125 pg/mL [facility] Specimen Anatomical Collection Method Collection Time Receive d Time (Source) Location / / Volume Laterality Blood specimen 11/29/2019 2:32 PM 020 2:32 (specimen) EDT PM EDT Resulting Agency Comment Spec In Lab Gretchen Yoon MD CHEMISTRY ORDERABLES Performing Organization Address City/[facility]/ZIP Code Phon e Number [place] Magnesium (11/29/2019 2:32 PM EDT) athologist Signature Magnesium 0.76 0.69 - 1.07 [facility] mmol/L [facility] Specimen Anatomical Collection Method Collection Time Receive d Time (Source) Location / / Volume Laterality Blood specimen 11/29/2019 2:32 PM 020 2:32 (specimen) EDT PM EDT Resulting Agency Comment Spec In Lab Gretchen Yoon MD CHEMISTRY ORDERABLES Performing Organization Address City/State/ZIP Code Phon e Number [address] (ABNORMAL) Basic Metabolic Panel (non-fasting) (11/29/2019 2:32 PM EDT) athologist Signature Glucose Lvl 149 65 - 199 [facility] mg/dL [facility] Comment: Diabetes: >=200 mg/dL plus symp toms BUN 16 10 - 20 mg/dL [facility] Creatinine 0.94 0.80 - 1.50 mg/dL [facility] Sodium 135 135 - 145 mmol/L [facility] Potassium 4.5 3.5 - 5.0 mmol/L [facility] Comment: Please note: ??Patients with WBC >100,00 0 may have falsely elevated Potassium levels. ??For accurate Potassium quantif ication in these patients send serum separator tube (gold top) for subsequent determinations. ??Contact the Clinical Chemistry Laboratory if there are any qu estions. Chloride 105 98 - 107 mmol/L [facility] CO2 15 (L) 22 - 31 mmol/L [facility] Anion Gap 15 5 - 15 mmol/L [facility] Calcium 8.0 (L) 8.5 - 10.5 mg/dL [facility] Estimated GFR 80 >=60 mL/min/1.73 m?? [facility] Comment: The eGFR was calculated using the CKD-EP I equation. As with all creatinine based estimates of kidney function, eGFR values calculated with the CKD-EPI equation are not accurate in patients wi th acute kidney failure, extremes of body mass or the acutely ill. http://IGIGI/[facility]SAnkf eGFR 93 >=60 mL/min/1.73 m?? [facility] Comment: The eGFR was calculated using the CKD-EP I equation. As with all creatinine based estimates of kidney function, eGFR values calculated with the CKD-EPI equation are not accurate in patients wi th acute kidney failure, extremes of body mass or the acutely ill. http://IGIGI/[facility]ULSAnkf Specimen Anatomical Collection Method Collection Time Receive d Time (Source) Location / / Volume Laterality Blood specimen 11/29/2019 2:32 PM 020 2:32 (specimen) EDT PM EDT Resulting Agency Comment Spec In Lab Gretchen Yoon MD CHEMISTRY ORDERABLES Performing Organization Address City/[facility] [place] [address] EKG 12 Lead (11/29/2019 11:38 AM EDT) [facility] gist Method Time Signature Ventricular rate 60 BPM MUSE SYSTEM Atrial Rate 60 BPM MUSE SYSTEM P-R Interval 140 ms MUSE SYSTEM QRS Duration 86 ms MUSE SYSTEM Q-T Interval 474 ms MUSE SYSTEM QTC Calculated 474 ms MUSE SYSTEM (Bezet) Calculated P Moca 48 degrees MUSE SYSTEM Calculated R Moca 14 degrees MUSE SYSTEM Calculated T Moca 58 degrees MUSE SYSTEM INTERPRETATION Normal sinus [...] Yoon MD ECG ORDERABLES Performing Organization Address City/[facility] Phon e Number MUSE SYSTEM CARDIAC CATHETERIZATION (11/29/2019 11:15 AM EDT) Anatomical Region Laterality Modality Other Specimen (Source) Anatomical Location Collection Method / Collectio n Time Received Time / Laterality Volume Narrative 11/30/2019 1:09 PM EDT ?[facility] ? Cardiac Cathete rization/Intervention Report ? Patient Name: Salinas, Angel Luis H. ? Procedure Date: 11/29/2019 ? A #: [id number] ? Primary Physician: Shaan, Gretchen N ? Case #: [id number] ? File Name: [id number] ? Catheterization Order Number: [id number] ? [facility] ? Final Report [place], [place] ? Patient Name: ? Angel Luis Salinas ? ID#: ?[id number] ? : ?1945 ? Procedure Date: ? [...] procedure was Emergent. The indication for ?the pharmaceutical laboratory technician visit is ACS less than or equal [...] dose administered prior to arrival in the pharmaceutical laboratory technician. ?Recommended anti-platelet/anti- thrombotic regimen: ?Continue aspirin 81 mg daily fo r indefinitely. ?Continue clopidogrel 75 mg marco a y for 12 months then stop. ?These recommendations are made at the time of the intervention. Patient ?and provider preferences or a c hanging clinical situation may require ?modification of this regimen. C marvult [facility] Interventional Cardiology for ?questions. ? Conclusions: ?* [...] note might be different from the original. [facility] Cardiac Catheterization/Intervention Re port Patient Name: SalinasAngel Luis Procedure Date: 11/29/2019 A #: [id number] Primary Physician: Gretchen Yoon Case #: [id number] File Name: [id number] Catheterization Order Number: [id number] [facility] Final Report [place], [place] Patient Name: Angel Luis Salinas ID#: [id number] : 1945 Procedure Date: November 29, [...] was designated as ASA Class IV. The [facility] clinical frailty scale is 4: Vulnerable. Diagnostic Tests: Electrocardiography: EKG was assessed by ECG. EKG was Abnorm al. EKG showed ST Deviation >= 0.5 mm. Medications Prior to Procedure: Aspirin. Indications for Diagnostic Cath: The priority of the diagnostic procedur e was Emergent. The indication for the pharmaceutical laboratory technician visit is ACS less than or equal [...] for the procedure was Emergent. [facility] the procedure was S GAETANO [...] this intervention was 10%. The final TI ME flow was 2. Distal 90% Thrombectomy and [...] this intervention was 10%. The final TI ME flow was 2. Vascular Access: Vascular Access [...] administered prior t o arrival in the pharmaceutical laboratory technician. Recommended anti-platelet/anti-thrombot ic regimen: Continue aspirin 81 mg daily for indefi nitely. Continue clopidogrel 75 mg daily for 12 months then stop. These recommendations are made at the t loyda of the intervention. Patient and provider preferences or a changing clinical situation may require modification of this regimen. Consult [facility] Interventional Cardiology for questions. Conclusions: * Two [...] Signature POC pH 7.33 (L) 7.35 - [facility] 7.45 [facility] POC PCO2 33 (L) 35 - 45 [facility] mmHg [facility] POC PO2 56 (L) 85 - 104 [facility] LABORATORY POC Base Excess -8.0 (L) -3.0 - 3.0 [facility] K mmol/L [facility] POC HCO3 17.4 (L) 20.0 - [facility] 26.0 [facility] mmol/[facility] LABORATORY POC Sodium 137 135 - 145 [facility] mmol/L [facility] POC Potassium 3.6 3.5 - 5.0 [facility] mmol/L [facility] POC Ionized Ca 1.15 1.15 - [facility] 1.33 [facility] P[facility] Hematocrit 37.0 (L) 40.0 - [facility] 51.0 % [facility] POC Calc Hgb 12.6 (L) 13.7 - [facility] 17.5 gm/dL [facility] Comment: The calculation of hemoglobin f rom hematocrit assumes a normal MCHC. POC Bgas Loc CC LAB [facility] Specimen Anatomical Collection Method Collection Time Receive d Time (Source) Location / / Volume Laterality Blood specimen 11/29/2019 9:17 AM 020 7:35 (specimen) EDT AM EDT Gretchen Yoon MD CHEMISTRY ORDERABLES Performing Organization Address City/State/[place] [address] EKG 12 Lead (11/29/2019 9:01 AM EDT) Component Value Ref Range Test Analysis Performed Pathologis t Method Time At Signature Ventricular rate 80 BPM MUSE SYSTEM Atrial Rate 79 BPM MUSE SYSTEM QRS Duration 94 ms MUSE SYSTEM Q-T Interval 436 ms MUSE SYSTEM QTC Calculated 502 ms MUSE SYSTEM (Bezet) Calculated R Moca 54 degrees MUSE SYSTEM Calculated T Moca 80 degrees MUSE SYSTEM INTERPRETATION Normal sinus rhythm MUSE SYSTEM Inferior infarct , possibly acute Prolonged QT * ACUTE ME ?? Consider right ventricular involvement in acute [...] ONCE, 1 dose, 12/06/19 at 0515, Ad pc technician over 120 Minutes magnesium sulfate 2 g [...] Bentley RN) 0-8,000 Units, Intravenous, BOLUS PER [facility] PROTOCOL, Starting 12/06/19 at 0926, Until 12/08/19 [...] Oral, EVERY 4 HOURS PRN, Startin g [place] 11/30/19 at 2016, Until Sun12/08/19 at 1811, hypokalemia
Administer for serum potassium (mMol/L) of 3.9 - 4 See instructions for Potassium Protocol in online policies.
Routine Or potassium chloride ER (K-Dur/Klor-Con) tablet 40 mEqJump to med 40 mEq, Oral, EVERY 4 HOURS PRN, Startin g [place] 11/30/19 at 2016, Until Sun12/08/19 at 181, hypokalemia
Administer for serum potassium (mMol/L) of 3.6 - 3.8 See instructions for Potassium Protocol in online policies.
Routine documented in this encounter Care Teams Roofer Metal Relationship Specialty Start Date End Date France Lam MD PCP - General 05/02/13 02/04/20 [address] [place] [address] documented as of this encounter
--- OUTSIDE RECORDS SUMMARY | 2022-03-21 11:06 | XMS_ITS | Encounter Summary ---
:1945 Author Organization [facility] [place] [address] Care Team Providers Name Role Phone France Lam MD Primary Care Provider Encounter Details Date Type Department Care Team Description 05/13/2013 Orders Only Vascular Surgery at [facility] (xi luis [facility] [place] [place] air bag builder disease) [facility] (Primary Dx) [place] [phone] Social History Tobacco Use Types Packs/Day [...] unspecified documented in this encounter Care Teams Salt Operator Relationship Specialty Start Date End Date France Lam MD PCP - General 05/02/13 02/04/20 [address] [place] [address] documented as of this encounter
--- OUTSIDE RECORDS SUMMARY | 2022-03-21 11:06 | XMS_ITS | Encounter Summary ---
:1945 Author Organization [facility] [place] [address] Care Team Providers Name Role Phone France Lam MD Primary Care Provider Encounter Details Date Type Department Care Team Description 05/13/2013 Ancillary Vascular Surgery at Claritza [facility] (Primary Appointment [facility] [place], [place] Dx) [place] [id number] Social History Tobacco Use Types Packs/Day Years [...] Component Value Ref Test Analysis Performed At [facility] gist Range Method Time Signature VB Text VASCUBASE Report Department: Vascular Surgery Lab Patient: [id number] (ANGEL LUIS HI) CPT Code: 22696 ICD-9: 440.21 Referring Physician: FRANCE LAM Indication: [...] Posterior Tibial (Ankle) Art derrell ??84 ?0.64 ??Prowers- Biphasic ?? Interpretation: RIGHT: ??Mild lower extremity [...] limb documented in this encounter Care Teams Clinical Informatics Manager Relationship Specialty Start Date End Date France Lam MD PCP - General 05/02/13 02/04/20 [address] [place] [address] documented as of this encounter
--- OUTSIDE RECORDS SUMMARY | 2022-03-21 11:06 | XMS_ITS | Encounter Summary ---
:1945 Author Organization [facility] Address [facility] [place] [address] Care Team Providers Name Role Phone France Lam MD Primary Care Provider Reason for Visit Reason Comments Claudication Encounter Details Date Type Department Care Team Description 05/13/2013 Office Visit Vascular Surgery at David Sim from [facility] MD Bobby peripheral vascular [facility] dis ease, left ([address] Drive [address] [place]) [place], [place] VASCULAR SURGERY [id number] [place] [address] [phone] Social History Tobacco Use Types Packs/Day Years [...] unspecified documented in this encounter Care Teams Retort Feeder Ground Bone Relationship Specialty Start Date End Date France Lam MD PCP - General 05/02/13 02/04/20 [address] [place] [address] documented as of this encounter
--- OUTSIDE RECORDS SUMMARY | 2022-03-21 11:06 | XMS_ITS | Encounter Summary ---
:1945 Author Organization [facility] [place] [address] Care Team Providers Name Role Phone France Lam MD Primary Care Provider Encounter Details Date Type Department Care Team Description 11/29/2019 External Results [place] [address] Social History Tobacco Use Types Packs/Day [...] on filedocumented in this encounter Care Teams [place] Supervisor Relationship Specialty Start Date End Date France Lam MD PCP - General 05/02/13 02/04/20 [address] [place] [address] documented as of this encounter
[2022-03-23 10:59] VITALS: BP 102/43; PULSE 51
--- OUTSIDE RECORDS SUMMARY | 2022-03-23 11:02 | XMS_ITS | Continuity of Care Document ---
:1945 Author Organization [facility] Care Team Providers Name Role Phone [facility] Unavailable Unavailable Problems Combined list of problems [...] Diagnosis: ICD-10-CM Active Diagnosis [place] Z79.01 [place] [facility] (current) use of anticoagulantswith Provider Comments: Long-term current use of anticoagulant (SCT [id number]) Diagnosis: ICD-10-CM Active Diagnosis ST. Z23 Encounter for [place] immunizationwith CBO C Provider Comments: Encounter for Immunization Diagnosis: ICD-10-CM Active Diagnosis ST. H90.3 Sensorineural [facility] hearing loss, CBOC bilateralwith Provider Comments: Asymmetrical sensorineural hearing loss (SNOMED CT [id number]) Diagnosis: ICD-10-CM Active Diagnosis ST. I25.10 Athscl heart [facility] disease of [place] CB OC coronary artery w/o ang pctrswith Provider Comments: Atherosclerotic Heart Disease of [place] Coronary Artery without Angina Pectoris Medications Combined list of outpatient medications from Department of Defense and Veterans Affairs facilities. Medications provided include 1) outpatient medications from the last 15 months, and 2) patient-reported medications. Medication Details Route Status Patient Prescription Prescription Last Ordering Order Source Instructions Expires Number Dispense Provider Date Date AMIODARONE TAKE ONE ORAL ACTIVE 02/14/2023 [id number] JORGE A LOZA HCL TABLET 2 N 2021 [place] (PACERONE) BY MOUTH [place] 200MG TAB [facility] DAY AFTER ONE MONTH OF TWICE DAILY DOSING THROUGH 02/26/22 APIXABAN TAKE ONE ORAL ACTIVE 2023 [id number] WILLIE LOZA 01/20/ Departm 5MG TAB TABLET 2 N 2021 ent of BY MOUTH TWICE A s DAY TO Affairs HELP PREVENT BLOOD CLOTS (ANTICOA GULATION CCNRX) APIXABAN TAKE ONE ORAL 12/21/2021 [id number] GIANGR ECO 12/30/ WHITE 5MG TAB TABLET 2 ,MILTON Will 2020 [place] BY MOUTH [place] EVERY [facility] TWELVE HOURS TO HELP PREVENT BLOOD CLOTS (ANTICOA GULATION ) ASPIRIN TAKE ONE ORAL ACTIVE GIANGRECO 12/20/ WHI TE 81MG TAB,EC TABLET ,MILTON Will 2020 ANNALEE ER BY MOUTH [place] EVERY [facility] DAY CHOLECALCIF TAKE ONE ORAL ACTIVE IRASEMA,P 04/22/ ST. DARIO 25MCG TABLET KARYY A 2014 [place] (1,000UNIT) BY MOUTH RY CB OC TAB EVERY OTHER DAY FUROSEMIDE TAKE ONE ORAL ACTIVE 12/17/2022 [id number] JORGE A LOZA 12/21/ Departm 20MG TAB TABLET 2 N 2021 ent of BY MOUTH EVERY s OTHER Affairs DAY TO REMOVE FLUID/CO NTROL BLOOD PRESSURE FUROSEMIDE TAKE ONE ORAL 11/12/2021 [id number] SJ PATTONM 11/12/ ST. 20MG TAB TABLET 2 ICHAEL 2020 [place] BY MOUTH RY CBOC EVERY OTHER DAY TO REMOVE FLUID/CO NTROL BLOOD PRESSURE LISINOPRIL TAKE ONE ORAL ACTIVE 12/17/2022 [id number] JORGE A LOZA 12/21/ Departm 5MG TAB TABLET 2 N 2021 ent of BY MOUTH Arnold EVERY s DAY TO Affairs CONTROL BLOOD PRESSURE LISINOPRIL TAKE ONE ORAL DISCONT 06/08/2022 [id number] JORGE A LOZA 06/15/ WHITE 5MG TAB TABLET INUED 2 N 2020 [place] BY MOUTH [place] EVERY [facility] DAY TO CONTROL BLOOD PRESSURE LISINOPRIL TAKE ONE ORAL 06/03/2021 [id number] SJ PATTON,M 06/08/ ST. 5MG TAB TABLET 1 ICHAEL 2019 [place] BY MOUTH RY CBOC EVERY DAY TO CONTROL BLOOD PRESSURE METOPROLOL TAKE ONE ORAL ACTIVE 02/14/2023 [id number] JORGE A LOZA 02/15/ WHITE SUCCINATE TABLET 2 N 2021 [place] 25MG TAB,SA BY MOUTH [place] EVERY [facility] DAY FOR BLOOD PRESSURE /HEART METOPROLOL TAKE ONE ORAL DISCONT 02/23/2022 [id number] SJ PATTONM 02/28/ ST. SUCCINATE TABLET INUED 2 ICHAEL 2020 [place] 25MG TAB,SA BY MOUTH RY CB OC EVERY DAY FOR BLOOD PRESSURE /HEART NITROGLYCER TAKE ONE SUBLIN 02/23/2022 [id number] Mery LR 02/28/ ST. IN 0.4MG TABLET GUAL 1 2020 [place] TAB,SUBLING UNDER RY CBOC UAL THE TONGUE EVERY 5 MINUTES NEEDED FOR CHEST PAIN (ANGINA) MAY REPEAT FOR THREE DOSES (IF NO RELIEF,S COUNCIL MEDICAL ATTENTIO N PROMPTLY ) TIOTROPIUM INHALE DISCONT 07/16/2021 [id number] Tamra LOZA 07/21/ WHITE 18MCG ONE INUED 1 N 2020 RIVER CAP,INHL,90 CAPSULE [place] IN [facility] INHALER BY MOUTH EVERY DAY FOR [...] atus Comments Source Given By Number Code District Sales Representative ZOSTER [address] RECOMBINANT 2020 ed [place] RY CBOC INFLUENZA, complet WHITE UNSPECIFIED [...] result by 1.210 Tests performed on [employer] (405) SN:[id number] [place] eGFR E] IN SERUM Ordering Pr ovider: [place] [facility] PANEL OR PLASMA Report Releas ed Date/Time: Feb 24, 2021 11:18 AM Reporting Lab: [place] [facility] [address] [place] [facility] [place] [address] Performing Lab: [facility] [place] [facility] [facility] [address] [facility] [address] CREATININ GLOMERULAR 44 60 04/28 L Specimen Ty pe: PLASMA WHITE E WITH FILTRATION /2020 Comment: For eGFR: Race unknown, if multiply result by 1.210 Tests performed on [employer] (405) SN:[id number] [place] eGFR RATE/1.73 Ordering Prov ider: [place] [facility] PANEL SQ Report Released Date/Time: Feb 24, 2021 11:18 AM M.PREDICTED Reporting L ab: [facility] [facility] [facility] [VOLUME [address] [place] [facility] [place] [facility] [place] [address] RATE/AREA] Performing L ab: [place] [facility] IN SERUM OR [address] [facility] [address] PLASMA BY CREATININE- BASED FORMULA (MDRD) CBC NO LEUKOCYTES 5.8 4.5 - 11.0 04/28 Specimen T ype: BLOOD WHITE DIFF [#/VOLUME] /2020 No comment en tered. [place] IN BLOOD BY Ordering Pr ovider: [place] [facility] AUTOMATED Report Releas ed Date/Time: Feb 24, 2021 11:18 AM COUNT Reporting Lab: [facility] [place] [facility] [address] [place] [facility] [place] [place] [address] Performing Lab: [facility] [place] [facility] [facility] [address] [facility] [address] CBC NO ERYTHROCYTE 4.61 4.23 - 04/28 Specimen Typ e: BLOOD WHITE DIFF S 5.66 /2020 No comment enter ed. [place] [#/VOLUME] Ordering Pro vider: [place] [facility] IN BLOOD BY Report Rele ased Date/Time: Feb 24, 2021 11:18 AM AUTOMATED Reporting Lab : [place] [facility] COUNT [address] [place] [facility] [place] [address] Performing Lab: [facility] [place] [facility] [address] [place] [facility] [place] [address] CBC NO HEMOGLOBIN 13.9 12.8 - 17 04/28 Specimen Ty pe: BLOOD WHITE DIFF [MASS/VOLUM /2020 No comment e ntered. [place] E] IN BLOOD Ordering Pr ovider: MIL[place] UREÑAOC Report Released Date/Time: Feb 24, 2021 11:18 AM Reporting Lab: [facility] [place] [facility] [address] [place] [facility] [place] [address] Performing Lab: [facility] [place] [facility] [facility] [address] [place] [facility] [place] [place] [address] CBC NO HEMATOCRIT 43.6 39.2 - 04/28 Specimen Type : BLOOD WHITE DIFF [VOLUME 50.4 No comment enter ed. [place] FRACTION] Ordering Prov ider: [place] [facility] OF BLOOD BY Report Rele ased Date/Time: Feb 24, 2021 11:18 AM AUTOMATED Reporting Lab : [place] [facility] COUNT [address] [place] [facility] [place] [address] Performing Lab: [facility] [facility] [facility] [address] [place] [facility] [place] [address] CBC NO MCV 94.6 82 - 99 04/28 Specimen Type: B LOOD WHITE DIFF [ENTITIC /2020 No comment ente red. [place] VOLUME] BY Ordering Pro vider: MIL[place] UREÑAOC AUTOMATED Report Releas ed Date/Time: Feb 24, 2021 11:18 AM COUNT Reporting Lab: [facility] [place] [address] [place] [facility] [place] [address] Performing Lab: [facility] [facility] [facility] [address] [place] [facility] [place] [address] CBC NO MCH 30.2 26.2 - 04/28 Specimen Type: B LOOD WHITE DIFF [ENTITIC 32.6 /2020 No comment ente red. [place] MASS] BY Ordering Provi adrian: [place] UREÑAOC AUTOMATED Report Releas ed Date/Time: Feb 24, 2021 11:18 AM COUNT Reporting Lab: [facility] [place] [address] [place] [facility] [place] [place] [address] Performing Lab: [facility] [place] [facility] [address] [facility] [place] [place] [address] CBC NO MCHC 31.9 30.8 - 04/28 Specimen Type: B LOOD WHITE DIFF [MASS/VOLUM 35.1 /2020 No comment e ntered. [place] E] BY Ordering Provid er: MILTON UREÑA AUTOMATED Report Releas ed Date/Time: Feb 24, 2021 11:18 AM COUNT Reporting Lab: [facility] [address] [place] [facility] [place] [place] [address] Performing Lab: [facility] [place] [facility] [facility] [address] [place] [facility] [place] [place] [address] CBC NO PLATELETS 141 140 - 360 04/28 Specimen Typ e: BLOOD WHITE DIFF [#/VOLUME] /2020 No comment en tered. [place] IN BLOOD BY Ordering Pr ovider: [place] UREÑ[facility] AUTOMATED Report Releas ed Date/Time: Feb 24, 2021 11:18 AM COUNT Reporting Lab: [facility] [place] [address] [place] [facility] [place] [place] [address] Performing Lab: [facility] [place] [address] [place] [facility] [place] [place] [place] [address] CBC NO PLATELET 12.1 9.2 - 12.4 04/28 Specimen Typ e: BLOOD WHITE DIFF MEAN VOLUME /2020 No comment e ntered. [place] [ENTITIC Ordering Provi adrian: MILTON UREÑAOC VOLUME] IN Report Relea sed Date/Time: Feb 24, 2021 11:18 AM BLOOD BY Reporting Lab: [facility] [place] [facility] [facility] AUTOMATED [address] [facility] [place] [place] [address] COUNT Performing Lab: [facility] [place] [facility] [address] [facility] [place] [place] [address] CBC NO ERYTHROCYTE 15.0 12.0 - 04/28 Specimen Typ e: BLOOD WHITE DIFF DISTRIBUTIO 16.0 No comment e ntered. [place] N WIDTH Ordering Provid er: MILTON UREÑAOC [RATIO] BY Report Relea sed Date/Time: Feb 24, 2021 11:18 AM AUTOMATED Reporting Lab : [facility] [place] [facility] [facility] COUNT [address] [place] [facility] [place] [place] [address] Performing Lab: [facility] [place] [facility] [facility] [address] [facility] [place] [place] [address] CREATININ CREATININE 1.37 0.5 - 1.5 02/22 Specimen Type: PLASMA WHITE E WITH [MASS/VOLUM /2020 Comment: Fo r eGFR: Race unknown, if multiply result by 1.210 Tests performed on [employer] (405) SN:[id number] [place] eGFR E] IN SERUM Ordering Pr ovider: MIL[place] UREÑ[facility] PANEL OR PLASMA Report Releas ed Date/Time: Dec 20, 2020 02:24 PM Reporting Lab: [facility] [place] [facility] [facility] [address] [place] [facility] [place] [place] [address] Performing Lab: [facility] [facility] [address] [place] [facility] [place] [place] [address] CREATININ GLOMERULAR 51 60 02/22 L Specimen Ty pe: PLASMA WHITE E WITH FILTRATION /2020 Comment: For eGFR: Race unknown, if multiply result by 1.210 Tests performed on [employer] (405) SN:[id number] [place] eGFR RATE/1.73 Ordering Prov ider: MIL[place] UREÑ[facility] PANEL SQ Report Released Date/Time: Dec 20, 2020 02:24 PM M.PREDICTED Reporting L ab: [facility] [place] [facility] [VOLUME [address] [facility] [place] [place] [address] RATE/AREA] Performing L ab: [place] [facility] IN SERUM OR [address] [facility] [place] [place] [address] PLASMA BY CREATININE- BASED FORMULA (MDRD) CBC NO LEUKOCYTES 6.8 4.5 - 11.0 02/22 Specimen T ype: BLOOD WHITE DIFF [#/VOLUME] /2020 No comment en tered. [place] IN BLOOD BY Ordering Pr ovider: MIL[place] UREÑ[facility] AUTOMATED Report Releas ed Date/Time: Dec 20, 2020 02:24 PM COUNT Reporting Lab: [facility] [place] [address] [place] [facility] [place] [place] [address] Performing Lab: [facility] [place] [facility] [facility] [address] [place] [facility] [place] [place] [address] CBC NO ERYTHROCYTE 5.03 4.23 - 08 Specimen Typ e: BLOOD WHITE DIFF S 5.66 /2020 No comment enter ed. [place] [#/VOLUME] Ordering Pro vider: MIL[place] UREÑ[facility] IN BLOOD BY Report Rele ased Date/Time: Dec 20, 2020 02:24 PM AUTOMATED Reporting Lab : [facility] [facility] COUNT [address] [facility] [address] Performing Lab: [facility] [facility] [address] [facility] [address] CBC NO HEMOGLOBIN 14.9 12.8 - 17 02/22 Specimen Ty pe: BLOOD WHITE DIFF [MASS/VOLUM /2020 No comment e ntered. [place] E] IN BLOOD Ordering Pr ovider: MILTON UREÑA Report Released Date/Time: Dec 20, 2020 02:24 PM Reporting Lab: [facility] [place] [facility] [address] [place] [facility] [place] [place] [address] Performing Lab: [facility] [place] [facility] [address] [place] [facility] [place] [place] [address] CBC NO HEMATOCRIT 46.7 39.2 - 02/22 Specimen Type : BLOOD WHITE DIFF [VOLUME 50.4 No comment enter ed. [place] FRACTION] Ordering Prov ider: MIL[place] UREÑAOC OF BLOOD BY Report Rele ased Date/Time: Dec 20, 2020 02:24 PM AUTOMATED Reporting Lab : [facility] [place] [facility] COUNT [address] [place] [facility] [place] [place] [address] Performing Lab: [facility] [place] [facility] [facility] [address] [facility] [place] [place] [address] CBC NO MCV 92.8 82 - 99 02/22 Specimen Type: B LOOD WHITE DIFF [ENTITIC /2020 No comment ente red. [place] VOLUME] BY Ordering Pro vider: MIL[place] UREÑAOC AUTOMATED Report Rele ed Date/Time: Dec 20, 2020 02:24 PM COUNT Reporting Lab: [facility] [place] [address] [facility] [address] Performing Lab: [facility] [place] [facility] [address] [facility] [address] CBC NO MCH 29.6 26.2 - 08 Specimen Type: B LOOD WHITE DIFF [ENTITIC 32.6 /2020 No comment ente red. [place] MASS] BY Ordering Provi adrian: MILTON UREÑA AUTOMATED Report Releas ed Date/Time: Dec 20, 2020 02:24 PM COUNT Reporting Lab: [facility] [place] [address] [facility] [address] Performing Lab: [facility] [place] [facility] [facility] [address] [facility] [address] CBC NO MCHC 31.9 30.8 - 08 Specimen Type: B LOOD WHITE DIFF [MASS/VOLUM 35.1 /2020 No comment e ntered. [place] E] BY Ordering Provid er: MILTON UREÑA AUTOMATED Report Releas ed Date/Time: Dec 20, 2020 02:24 PM COUNT Reporting Lab: [facility] [place] [facility] [address] [facility] [address] Performing Lab: [facility] [place] [facility] [address] [facility] [address] CBC NO PLATELETS 159 140 - 360 08 Specimen Typ e: BLOOD WHITE DIFF [#/VOLUME] /2020 No comment en tered. [place] IN BLOOD BY Ordering Pr ovider: MILTON UREÑA AUTOMATED Report Releas ed Date/Time: Dec 20, 2020 02:24 PM COUNT Reporting Lab: [facility] [place] [facility] [address] [facility] [address] Performing Lab: [facility] [place] [facility] [address] [facility] [address] CBC NO PLATELET 13.0 9.2 - 12.4 08/24 H Specimen Typ e: BLOOD WHITE DIFF MEAN VOLUME /2020 No comment e ntered. [place] [ENTITIC Ordering Provi adrian: MILTON UREÑA VOLUME] IN Report Relea sed Date/Time: Dec 20, 2020 02:24 PM BLOOD BY Reporting Lab: [facility] AUTOMATED [address] [facility] [address] COUNT Performing Lab: [facility] [address] [facility] [address] CBC NO ERYTHROCYTE 14.6 12.0 - 08/24 Specimen Typ e: BLOOD WHITE DIFF DISTRIBUTIO 16.0 /2020 No comment e ntered. [place] N WIDTH Ordering Provid er: [facility] [RATIO] BY Report Relea sed Date/Time: Dec 20, 2020 02:24 PM AUTOMATED Reporting Lab : [facility] COUNT [address] [facility] [address] Performing Lab: [facility] [address] [facility] [address] P4 UREA 20 7 - 25 08/24 Specimen Type: P LASMA ST. GLU,BUN,C NITROGEN /2020 Comment: For eGFR: Race unknown, if multiply result by 1.210 Tests performed on [employer] (405) SN:[id number] IVORY BECKETT [MASS/VOLUM Ordering Provider: GRETCHEN PEREZ CA E] IN SERUM Report Rele ased Date/Time: Feb 22, 2021 10:13 AM OR PLASMA Reporting Lab : [facility] [address] [facility] [address] Performing Lab: [facility] [address] [facility] [address] P4 SODIUM 133 135 - 145 08/24 L Specimen Type: PLASMA ST. GLU,BUN,C [MOLES/VOLU /2020 Comment: For eGFR: Race unknown, if multiply result by 1.210 Tests performed on [employer] (405) SN:[id number] IVORY BECKETT ME] IN Ordering Prov ider: GRETCHEN PEREZ CA SERUM OR Report Release d Date/Time: Feb 22, 2021 10:13 AM PLASMA Reporting Lab: [facility] [address] [facility] [address] Performing Lab: [facility] [address] [facility] [address] P4 POTASSIUM 4.5 3.5 - 5.0 02/22 Specimen Typ e: PLASMA ST. GLU,BUN,C [MOLES/VOLU /2020 Comment: For eGFR: Race unknown, if multiply result by 1.210 Tests performed on [employer] (405) SN:[id number] IVORY BECKETT [place]] IN Ordering Prov ider: GRETCHEN PEREZ SPRINCESS SERUM OR Report Release d Date/Time: Feb 22, 2021 10:13 AM PLASMA Reporting Lab: [facility] [address] [place] [facility] [place] [address] Performing Lab: [facility] [address] [place] [facility] [place] [address] P4 CHLORIDE 102 100 - 110 02/22 Specimen Type : PLASMA ST. GLU,BUN,C [MOLES/VOLU /2020 Comment: For eGFR: Race unknown, if multiply result by 1.210 Tests performed on [employer] (405) SN:[id number] IVORY BECKETT NH] IN Ordering Prov ider: GRETCHEN PEREZ CA SERUM OR Report Release d Date/Time: Feb 22, 2021 10:13 AM PLASMA Reporting Lab: [facility] [address] [place] [facility] [place] [address] Performing Lab: [place] [facility] [address] [place] [facility] [place] [place] [address] P4 CARBON 21 20 - 30 02/22 Specimen Type: P LASMA ST. GLU,BUN,C DIOXIDE, /2020 Comment: For eGFR: Race unknown, if multiply result by 1.210 Tests performed on [employer] (405) SN:[id number] IVORY BECKETT [facility] Ordering Prov ider: GRETCHEN PEREZ S,CA [MOLES/VOLU Report Rele ased Date/Time: Feb 22, 2021 10:13 AM NH] IN Reporting Lab: [place] [facility] SERUM OR [address] [place] [facility] [place] [address] PLASMA Performing Lab: [place] [facility] [address] [place] [facility] [place] [place] [address] P4 ANION GAP 10 4 - 16 02/22 Specimen Type: PLASMA ST. GLU,BUN,C IN SERUM OR /2020 Comment: For eGFR: Race unknown, if multiply result by 1.210 Tests performed on [employer] (405) SN:[id number] BLAIR BECKETTTE PLASMA Ordering Prov ider: GRETCHEN PEREZ CA Report Released Date/Time: Feb 22, 2021 10:13 AM Reporting Lab: [facility] [address] [facility] [address] Performing Lab: [facility] [address] [facility] [address] P4 GLUCOSE 106 65 - 100 08/24 H Specimen Type: PLASMA ST. GLU,BUN,C [MASS/VOLUM /2020 Comment: For eGFR: Race unknown, if multiply result by 1.210 Tests performed on [employer] (405) SN:[id number] MARCELA NYELYTE E] IN SERUM Ordering Provider: GRETCHEN PEREZ CA OR PLASMA Report Releas ed Date/Time: Feb 22, 2021 10:13 AM Reporting Lab: [facility] [address] [facility] [address] Performing Lab: [facility] [address] [facility] [address] P4 CREATININE 1.37 0.5 - 1.5 02/22 Specimen Ty pe: PLASMA ST. GLU,BUN,C [MASS/VOLUM /2020 Comment: For eGFR: Race unknown, if multiply result by 1.210 Tests performed on [employer] (405) SN:[id number] BLAIR BECKETTTE E] IN SERUM Ordering Provider: GRETCHEN PEREZ CA OR PLASMA Report Releas ed Date/Time: Feb 22, 2021 10:13 AM Reporting Lab: [facility] [address] [facility] [address] Performing Lab: [facility] [address] [facility] [address] P4 CALCIUM 9.6 8.5 - 10.5 02/22 Specimen Type : PLASMA ST. GLU,BUN,C [MASS/VOLUM /2020 Comment: For eGFR: Race unknown, if multiply result by 1.210 Tests performed on [employer] (405) SN:[id number] MARCELA NYELYTE E] IN SERUM Ordering Provider: ANA,GRETCHEN CBOC S,CA OR PLASMA Report Releas ed Date/Time: Feb 22, 2021 10:13 AM Reporting Lab: [facility] [address] [facility] [address] Performing Lab: [place] [facility] [address] [facility] [address] P4 GLOMERULAR 51 60 02/22 L Specimen Type : PLASMA ST. GLU,BUN,C FILTRATION /2020 Comment: F or eGFR: Race unknown, if multiply result by 1.210 Tests performed on [employer] (405) SN:[id number] MARCELA REIVORY MILLER RATE/1.73 Ordering Pr ovider: GRETCHEN PEREZ S,CA SQ Report Released Date/Time: Feb 22, 2021 10:13 AM M.PREDICTED Reporting L ab: [facility] [VOLUME [address] [facility] [address] RATE/AREA] Performing L ab: [facility] IN SERUM OR [address] [facility] [address] PLASMA BY CREATININE- BASED FORMULA (MDRD) LIVER PROTEIN 8.0 6.0 - 8.5 02/22 Specimen Type: PLASMA ST. PROFILE [MASS/VOLUM /2020 Comment: Fo r eGFR: Race unknown, if multiply result by 1.210 Tests performed on [employer] (405) SN:[id number] [facility] E] IN SERUM Ordering Pr ovider: GRETCHEN PEREZ CBOC OR PLASMA Report Releas ed Date/Time: Feb 22, 2021 10:13 AM Reporting Lab: [facility] [address] [place] [facility] [place] [place] [address] Performing Lab: [facility] [address] [facility] [address] LIVER ALBUMIN 4.0 3.2 - 5.0 02/22 Specimen Type: PLASMA ST. PROFILE [MASS/VOLUM /2020 Comment: Fo r eGFR: Race unknown, if multiply result by 1.210 Tests performed on [employer] (405) SN:[id number] [facility]] IN SERUM Ordering Pr ovider: GRETCHEN PEREZ CBOC OR PLASMA Report Releas ed Date/Time: Feb 22, 2021 10:13 AM Reporting Lab: [facility] [address] [facility] [address] Performing Lab: [facility] [address] [place] [facility] [place] [place] [address] LIVER BILIRUBIN.T 0.6 0.2 - 1.2 02/22 Specimen T ype: PLASMA ST. PROFILE OTAL /2020 Comment: For eG FR: Race unknown, if multiply result by 1.210 Tests performed on [employer] (405) SN:[id number] [facility] [MASS/VOLUM Ordering Pr ovider: RGETCHEN PEREZ E] IN SERUM Report Rele ased Date/Time: Feb 22, 2021 10:13 AM OR PLASMA Reporting Lab : [facility] [address] [facility] [address] Performing Lab: [facility] [address] [facility] [address] LIVER ALKALINE 75 40 - 150 02/22 Specimen Type: PLASMA ST. PROFILE PHOSPHATASE Comment: Fo r eGFR: Race unknown, if multiply result by 1.210 Tests performed on [employer] (405) SN:[id number] [facility] [ENZYMATIC Ordering Pro vider: GRETCHEN PEREZ ACTIVITY/VO Report Rele ased Date/Time: Feb 22, 2021 10:13 AM LUME] IN Reporting Lab: [facility] [address] [facility] [place] [place] [address] PLASMA Performing Lab: [facility] [address] [place] [facility] [place] [place] [address] LIVER ALANINE 16 7 - 52 02/22 Specimen Type: P LASMA ST. PROFILE AMINOTRANSF Comment: Fo r eGFR: Race unknown, if multiply result by 1.210 Tests performed on [employer] (405) SN:[id number] [facility] ERASE Ordering Provid er: GRETCHEN PEREZ [ENZYMATIC Report Relea sed Date/Time: Feb 22, 2021 10:13 AM ACTIVITY/VO Reporting L ab: [facility] LUME] IN [address] [place] [place] [address] SERUM OR Performing Lab : [facility] PLASMA [address] [place] [facility] [place] [place] [address] LIVER ASPARTATE 17 5 - 34 02/22 Specimen Type: PLASMA ST. PROFILE AMINOTRANSF Comment: Fo r eGFR: Race unknown, if multiply result by 1.210 Tests performed on [employer] (405) SN:[id number] [facility] ERASE Ordering Provid er: GRETCHEN PEREZ [ENZYMATIC Report Relea sed Date/Time: Feb 22, 2021 10:13 AM ACTIVITY/VO Reporting L ab: [facility] LU[facility]] [place] [address] [facility] [address] SERUM OR Performing Lab : [facility] PLASMA [address] [place] [facility] [place] [place] [address] LIPOPROTE CHOLESTEROL 361 0 - 199 08/24 H Specimen T ype: PLASMA ST. IN [MASS/VOLUM /2020 Comment: Fo r eGFR: Race unknown, if multiply result by 1.210 Tests performed on Gonsalez Director Of Outreach (405) SN:[id number] [facility] CHOLESTER E] IN SERUM Ordering Provider: GRETCHEN PEREZ OL FRACT. OR PLASMA Report Rele ased Date/Time: Feb 22, 2021 10:13 AM PANEL Reporting Lab: [facility] [address] [facility] [address] Performing Lab: [facility] [address] [place] [facility] [place] [address] LIPOPROTE TRIGLYCERID 170 0 - 149 08/24 H Specimen T ype: PLASMA ST. IN E Comment: For eG FR: Race unknown, if multiply result by 1.210 Tests performed on Gonsalez [employer] (405) SN:[id number] [facility] CHOLESTER [MASS/VOLUM Ordering Provider: GRETCHEN PEREZ OL FRACT. E] IN SERUM Report Re leased Date/Time: Feb 22, 2021 10:13 AM PANEL OR PLASMA Reporting Lab : [facility] [address] [facility] [address] Performing Lab: [facility] [address] [facility] [address] LIPOPROTE CHOLESTEROL 46 40 08/24 Specimen T ype: PLASMA ST. IN IN HDL /2020 Comment: For eG FR: Race unknown, if multiply result by 1.210 Tests performed on Gonsalez [employer] (405) SN:[id number] [facility] CHOLESTER [MASS/VOLUM Ordering Provider: GRETCHEN PEREZ OL FRACT. E] IN SERUM Report Re leased Date/Time: Feb 22, 2021 10:13 AM PANEL OR PLASMA Reporting Lab : [facility] [address] [facility] [address] Performing Lab: [facility] [address] [facility] [address] LIPOPROTE CHOLESTEROL 281 0 - 129 08/24 H Specimen T ype: PLASMA ST. IN IN LDL /2020 Comment: For eG FR: Race unknown, if multiply result by 1.210 Tests performed on Gonsalez Director Of Outreach (405) SN:[id number] [facility] CHOLESTER [MASS/VOLUM Ordering Provider: GRETCHEN PEREZ OL FRACT. E] IN SERUM Report Re leased Date/Time: Feb 22, 2021 10:13 AM PANEL OR PLASMA Reporting Lab : [facility] [address] [facility] [address] CALCULATION Performing Lab: [facility] [address] [facility] [address] VITAMIN COBALAMIN 312 200 - 900 08/24 Specimen Typ e: SERUM ST. B-12 (VITAMIN /2020 Comment: Tests performed on Gonsalez Director Of Outreach (405) SN:[id number] MARCELA B12) Ordering Provid er: GRETCHEN PEREZ [MASS/VOLUM Report Rele ased Date/Time: Feb 22, 2021 10:13 AM E] IN SERUM Reporting L ab: [facility] PLASMA [address] [facility] [address] Performing Lab[facility] [address] [facility] [address] GLYCOHEMO HEMOGLOBIN 6.2 4.0 - 5.6 08/24 H Specimen Type: BLOOD ST. GLOBIN A1C/HEMOGLO /2020 Comment: Te sts performed on Gonsalez Director Of Outreach (405) SN:[id number] MARCELA (A1C BIN.TOTAL Ordering Prov ider: GRETCHEN PEREZ ONLY) IN BLOOD BY Report Rele ased Date/Time: Feb 22, 2021 10:13 AM HPLC Reporting Lab: [facility] [address] [facility] [address] Performing Lab: [facility] [address] [facility] [address] VIT D CALCIFEROL 40.8 20 - 50 08/24 Specimen Type : SERUM ST. 25-OH(WRJ (VIT D2) /2020 Comment: Kirsten ts performed on Gonsalez Director Of Outreach (405) SN:[id number] MARE[facility] ) [MASS/VOLUM Ordering Pr ovider: GRETCHEN PEREZ E] IN SERUM Report Rele ased Date/Time: Feb 22, 2021 10:13 AM OR PLASMA Reporting Lab : [facility] [address] [facility] [address] Performing Lab: [facility] [address] [facility] [address] Encounters Combined list of: 1) Encounters from Department of Veterans Affairs facilities going back up to the last 18 months. 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 Location Location Encounter Encounter Reason Attending ADM DC Stat us Disposition Source Details Type Number For Provider Date Date Visit Outpatient 76075-8.40 09/30 [facility] Encounter [id number] /[facility] 15402-6.40 10/19 [facility] Encounter [id number] /2020 [facility] 56725-4.40 11/11 [facility] Encounter [id number] /2020 [facility] Out[facility] 43899-0.40 11/11 [facility] Encounter [id number] /2020 [facility] 80365-9.40 11/11 [facility] Encounter [id number] /2020 [facility] Out[facility] 29968-0.40 12/13 WH[facility] E Encounter [id number] /2020 [facility] HC PRO 19780-4.40 Diagnos ADELITA, 12/20 W JIM[facility] PHONE CALL [id number] is: MILTON B /2020 R IVER 11-20 MIN ICD-10- [facility] 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
Provide r Comment s: Long-te rm current use of anticoa gulant (SCT 4005987 03) Outpatient 97044-1.40 02/22 WHIT E Encounter [id number] [facility] OFFICE O/P 86242-6.40 Diagnos SÁNCHEZ PEREZ 02/22 ST. EST MOD [id number] is: CHAEL JOHNSBU 30-39 MIN 29 ICD-10- RY CBOC CM I25.10 Athscl heart disease of [place] coronar y artery w/o ang pctrs<b r/>with Provide r Comment s: Atheros cleroti c Heart Disease of [place] Coronar y Artery without Angina Pectori s Outpatient 02/24 WHIT E Encounter [id number] /2021 [facility] MTMS BY Diagnos GUERDABINGJose Elias, 02/24 [facility] EST [id number] is: MILTON RI DORI 15 MIN ICD-10- [facility] Z79.01 retirement (curren t) use of anticoa gulants
Provide r Comment s: Long-te rm current use of anticoa gulant (SCT 0360280 03) Outpatient 03/02 WH[facility] E Encounter [id number] /2021 [facility] COMPREHENS 64260-0.40 Diagnos RADHA, 04/12 ST. ELA [id number] is: HLEY A [facility] HEARING 39 ICD-10- RY CBOC TEST CM H90.3 Sensori neural hearing loss, bilater al
with Provide r Comment s: Asymmet rical sensori neural hearing loss (SNOMED CT 9775997 09) Outpatient 04/15 WHIT E Encounter [id number] /2021 [facility] OFFICE O/P 93859-7.40 Diagnos PETTIGLIO, 04/28 ST. EST [id number] is: SAMMY A JOHNSB U MINIMAL 02 ICD-10- RY CBOC PROB CM Z23 Encount er for immuniz ation<b r/>with Provide r Comment s: Encount er for Immuniz ation HC PRO 91728-4.40 Diagnos NICOLA LEONE 04/29 W JIMBO PHONE CALL [id number] is: AN RIVE R 11-20 MIN ICD-10- [facility] Z79.01 retirement (curren t) use of anticoa gulants
wi th Provide r Comment s: Long-te rm current use of anticoa gulant ([facility] [id number] 03) Outpatient 22153-8.40 07/04 WHIT E Encounter [id number] /2022 L[facility] Social History Combined list of available smoking, tobacco, and other social history [facility]. 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
--- OUTSIDE RECORDS SUMMARY | 2022-03-23 11:03 | XMS_ITS | Encounter Summary ---
:1945 Author Organization [facility] Address [address] [place] [address] Care Team Providers Name Role Phone Unavailable Primary Care Provider Unavailable Encounter Details Date Type Department Care Team Description 09/02/2003 Results Only [facility] - Otis Patel MD conversion [address] [facility] [address] [place] [address] [place] [address] (Wo rk) Social History Tobacco Use Types [...] ANGEL LUIS SALINAS ? Accession #: ? [id number] ? : ? 1945 (Age: 58) ??M [...] of the lesion is recommended. ?? (Dr. Mascorro)/[facility] Microscopic Description: ? The epidermis is hype [...] and cords of similar melanocytes that show patient care coordinator maturation with descent. ??There is papillary dermal fibroplasia. ??(Dr. Mascorro)/[facility] Document reviewed and electronically signed by: Mai [...] entirely submitted in one cassette. ??(Dr Stephany Amador)/[facility] End of Report Specimen Performing Organization Address City/State/ZIP Code Phon e Number [facility] [address] [place] [address] SERVICES [facility] [address] [place] [address] documented in this encounter Visit Diagnoses Not on filedocumented in this encounter
--- OUTSIDE RECORDS SUMMARY | 2022-03-23 11:03 | XMS_ITS | Encounter Summary ---
:1945 Author Organization [facility] [place] [address] Care Team Providers Name Role Phone France Lam MD Primary Care Provider Reason for Visit Reason Onset Date Comments TeleHealth 01/12/2020 Encounter Details Date Type Department Care Team Description 01/12/2020 Telephone Neurosurgery at [facility] Alfreda Salas, TeleHealth [facility] Devin [place]ward[place] [address] [facility] [phone] [place], [place] [address] (Wo rk) Social History Tobacco [...] on filedocumented in this encounter Care Teams Flag Maker Relationship Specialty Start Date End Date France Lam MD PCP - General 05/02/13 02/04/20 [address] [place] [address] documented as of this encounter
--- OUTSIDE RECORDS SUMMARY | 2022-03-23 11:03 | XMS_ITS | Encounter Summary ---
:1945 Author Organization [facility] Address [address] [place] [address] Care Team Providers Name Role Phone Jennifer Gomez CONSUMER INSIGHT ANALYST Primary Care Provider Encounter Details Date Type Department Care Team Description 08/26/2021 Lab Requisition [facility] Najma Valladares for other Pathology & M, DO general examination Laboratory Medicine - [address] [facility] [address] [place] [id number] Social History Tobacco Use Types Packs/Day Years [...] 8:45 EST) Note to Patient The following [facility] pathology results have CENTER been interpreted by your LABORATORY pathologist and may be SERVICES available to you before your health provider has had the opportunity to review them. Please allow time for your provider to receive these results and explore management options, if applicable. Final Diagnosis A. RECTUM, POLYP, BIOPSY : [facility] - Polypoid submucosal anal glands. CENTER - Overlying rectal mucosa negative for dysplasia. LABORATORY - See comment. SERVICES Diagnosis Comment This rectal polyp shows a cantor bmucosal collection of anal duct glands causing a polypoid configuration. The morphology and the immunohistochemical profile are consistent with a benign (non-neoplastic) pro [facility] cess. Sole Dyer slides of this case were reviewed at the gastrointestinal/liver intradepartmental consultation conference. CENTER LABORATORY ANTIBODY(CLONE)(BLOCK):RESULT SERVICES CK7 (RN7, Leica) (A1): Strongly positive PAX-8 (MRQ-50, [place]) (A1): Negative NKX3.1 (Rabbit Polyclonal, [facility]) (A1): Negative GATA3 (L50-823, [place]) (A1): Negative NOTE: One or more of [...] characteristics have been de termined by [facility] and/or by the referring laboratory. The [...] laboratory testing. Attestation By the signature below, [facility] Elec tronically the attending physician CENTER sign ed by Odalis, certifies that they have LABORATORY Tami MD edna on 1) personally conducted SERVICES 2021 at 1309 a gross and/or microscopic examination of the described specimen(s), and/or personally interpreted the results of laboratory testing of the described specimen(s), and 2) personally rendered or confirmed the above diagnosis. Clinical History Flex sigmoidoscopy; [facility] diverticulosis, polyp CENTER LABORATORY SERVICES Gross Description A. [facility] Received in formalin mark d with proper patient identification (initials M, J) and rectal polyp is a marr-brown polyp, 0.6 x 0.5 x 0.4 cm. Bisected and entirely submitted in A1. CENTER LABORATORY ESTEFANY NICHOLS(ASCP) 08/26/2021 16:41 SE RVICES Performing Lab [facility] SERVICES Scanned Images [facility] SERVICES Specimen Tissue - Specimen from rectum (specimen) Performing Organization Address City/State/ZIP Code Phon e Number [facility] [address] [place] [address] SERVICES documented in this encounter Visit Diagnoses Diagnosis Encounter for other general examination documented in this encounter Care Teams Chess Instructor Relationship Specialty Start Date End Date Jennifer Gomez NP PCP - General 05/10/15 [facility] [address] [place] [address] documented as of this encounter
--- OUTSIDE RECORDS SUMMARY | 2022-03-23 11:03 | XMS_ITS | Encounter Summary ---
:1945 Author Organization [facility] Address [address] [place] [address] Care Team Providers Name Role Phone Unavailable Primary Care Provider Unavailable Encounter Details Date Type Department Care Team Description 09/15/2003 Results Only [facility] - Otis Patel MD conversion [address] [facility] [address] [place] [address] [place] [address] (Wo rk) Social History Tobacco Use Types [...] ANGEL LUIS SALINAS ? Accession #: ? [id number] ? : ? 1945 (Age: 58) ??M ? Collect Date: ? 09/15/2003 ? Location: ? [facility] ? Receive Date: ? 004 ? Provider: OTIS MOSS MD Copy to: MALCOM MCGEE RECRUITING SPECIALIST ? Final Pathologic Diagnosis: ? Skin of [...] Organization Address City/State/ZIP Code Phon e Number [facility] [address] [place] [address] SERVICES [facility] [address] [place] [address] documented in this encounter Visit Diagnoses Not on filedocumented in this encounter
--- OUTSIDE RECORDS SUMMARY | 2022-03-23 11:03 | XMS_ITS | Encounter Summary ---
:1945 Author Organization [facility] Address [facility] [address] [place] [address] Care Team Providers Name Role Phone Jovany Lott MD Primary Care Provider Encounter Details Date Type Department Care Team Description 10/08/2020 Telephone Cardiology at [facility] Faustino Garduno MD [facility] [place] [address] [place] [address] [phone] (Wo rk) Social History Tobacco Use Types [...] with Dr. Chou, his provider via the [place] (see my prior clinic note). His case was reviewed by our Watchman (left atrial appendage closure team). He has anatomy that would be conducive to closure, should he wish to pursue this for stroke prevention and ability to be off anticoagulation long term. Left message for callback to our Structural Program (contact Willow Callejas APRN). If he is interested, I would be happy to offerscheduling for him. Faustino Garduno MD Pager [phone] documented in this encounter Plan of Treatment Not on filedocumented as of this encounter Visit Diagnoses Not on filedocumented in this encounter Care Teams Civil Engineering Designer Relationship Specialty Start Date End Date Jovany Lott MD PCP - General Family Medicine 02/05/20 [address] [place] [address] documented as of this encounter
--- OUTSIDE RECORDS SUMMARY | 2022-03-23 11:03 | XMS_ITS | Clinical Summary ---
:1945 Author Organization [place] [place] [address] Care Team Providers Name Role Phone Jovany Lott MD Primary Care Provider Allergies Active Allergy Reactions Severity Noted Date Comments Penicillins 05/13/2013 Pt doesn't gely mber reaction Uiinkoj-Nda-Kfb Reductase 05/13/2013 St iff neck, upset stomach, [...] Address City/State/ZIP Code Phon e Number [place], [place] from Last 3 Months Insurance Payer Benefit Plan / Subscriber ID Effective Dates Phone Addre ss Type Group MEDICARE MEDICARE PART [id number] 2019-Prese [phone] [id number] [place] [address] [place] [id number] 2018-Presen [employer] [place] [id number] Advance Directives Latest Code Status on File [...] capacity to make decision: Yes Care Teams Credit Intern Relationship Specialty Start Date End Date Jovany Lott MD PCP - General Family Medicine 02/05/20 [address] [place] [phone]
--- OUTSIDE RECORDS SUMMARY | 2022-03-23 11:03 | XMS_ITS | Encounter Summary ---
:1945 Author Organization [facility] Address [address] [place] [address] Care Team Providers Name Role Phone Jennifer Gomez OUTSIDE PLANT TECHNICIAN Primary Care Provider Encounter Details Date Type Department Care Team Description 02/07/2020 Lab Requisition [facility] Outr Resulting Lab, Pathology & Laboratory Provider [facility] [address] [place] [address] Social History Tobacco Use Types [...] (02/07/2020 7:59 EDT) COVID-19 rt-PCR NEGATIVE Negative [facility] Result Comment: LABORATORY 2019-novel Coronavirus (2019 [...] Organization Address City/State/ZIP Code Phon e Number [facility] [place] [facility] [place], [place] COVID-19 TESTING (02/07/2020 7:59 EDT) COVID-19 rt-PCR NEGATIVE Negative [facility] Result Comment: LABORATORY 2019-novel Coronavirus (2019 [...] Administration's Emergency Use Authorization. Performing Lab [facility] LABORATORY SERVICES Specimen Swab Performing Organization Address City/State/ZIP Code Phon e Number [facility] [address] [place] [address] SERVICES [facility] [place], [place] documented in this encounter Visit Diagnoses Not on filedocumented in this encounter Care Teams Customer Support Associate Relationship Specialty Start Date End Date Jennifer Gomez NP PCP - General 05/10/15 [facility] [address] [place], [place] [address] documented as of this encounter
--- OUTSIDE RECORDS SUMMARY | 2022-03-23 11:03 | XMS_ITS | Encounter Summary ---
:1945 Author Organization [facility] [place] [address] Care Team Providers Name Role Phone France Lam MD Primary Care Provider Encounter Details Date Type Department Care Team Description 01/16/2020 Telephone Vascular Surgery at [facility] Ryan Tran, [place] [address] Social History Tobacco Use Types Packs/Day [...] fidelina. Ryan Tran, MSN, RN-BC, NCTTP Tobacco Clerk Carrier [facility] Pager #[phone] documented in this encounter Plan of Treatment Not on filedocumented as of this encounter Visit Diagnoses Not on filedocumented in this encounter Care Teams Deputy Fire Chief Relationship Specialty Start Date End Date France Lam MD PCP - General 05/02/13 02/04/20 [address] [facility] [place] [address] documented as of this encounter
--- OUTSIDE RECORDS SUMMARY | 2022-03-23 11:03 | XMS_ITS | Encounter Summary ---
:1945 Author Organization [facility] [place] [address] Care Team Providers Name Role Phone Jovany Lott MD Primary Care Provider Reason for Visit Reason Onset Date Comments Follow-up 06/15/2020 Tobacco Treatment Encounter Details Date Type Department Care Team Description 06/15/2020 Telephone Vascular Surgery at Ryan Tran-melvin (Tobacco [facility] Sukumar, RN Treatment) [place] [address] Social History Tobacco Use Types Packs/Day [...] updated. Ryan Tran, MSN, RN-BC, NCTTP Tobacco Glass Cleaning Machine Tender [facility] Pager #[phone] documented in this encounter Plan of Treatment Not on filedocumented as of this encounter Visit Diagnoses Not on filedocumented in this encounter Care Teams Director Of Psychiatry Relationship Specialty Start Date End Date Jovany Lott MD PCP - General Family Medicine 02/05/20 [place] [address] documented as of this encounter
--- OUTSIDE RECORDS SUMMARY | 2022-03-23 11:03 | XMS_ITS | Clinical Summary ---
:1945 Author Organization [facility] Address [address] [place] [address] Care Team Providers Name Role Phone Jennifer Gomez Bunny ICT SALES ASSISTANT Primary Care Provider Encounters Date Type Specialty [...] Free 9.3 (H) 2.8 - 5.3 pg/mL [facility] SERVICES Specimen Blood - Venous blood (substance) Performing Organization Address City/State/ZIP Code Phon e Number [facility] [address] [place] [address] SERVICES FECAL BACTERIAL PATHOGENS BY PCR (01/24/2022 14:50 EDT) Pathologist Sig nature Salmonella PCR Negative Negative [facility] SERVICES Shigella/Enteroinvasive Negative Negative [facility] HN LAB CAMPYLOBACTER PCR Negative Negative [facility] Shiga Toxin PCR Negative Negative [facility] SERVICES Specimen Feces - Specimen from rectum (specimen) Performing Organization Address City/State/ZIP Code Phon e Number [facility] [address] [place] [address] SERVICES from Last 3 Months Insurance Payer Benefit Plan Subscriber ID Effective Phone Address Typ e / Group Dates [employer]UTUAL OF M[employer] OF [id number] 2018-Prese [id number] [place] [address] MEDICARE MEDICARE A/B [id number] 2011-Pres [address] Medicare GL ent [id number] [place] [address] (Work) Jovany Hi Personal/Family Self [address] (Home) [place] [address] (Work) oJvany Hi Personal/Family Self [address] (Home) [place] [address] (Work) Care Teams Insulation Worker Relationship Specialty Start Date End Date Jennifer Gomez, ICT SALES ASSISTANT PCP - General 05/10/15 [facility] [address] [place], [place] [id number]
--- OUTSIDE RECORDS SUMMARY | 2022-03-23 11:03 | XMS_ITS | Encounter Summary ---
:1945 Author Organization [facility] Address [address] [place] [address] Care Team Providers Name Role Phone Jennifer Gomez FRAMER Primary Care Provider Encounter Details Date Type Department Care Team Description 02/15/2022 Lab Requisition [facility] Outr Resulting Lab, Pathology & Laboratory Provider [facility] [address] [place], [place] [address] Social History Tobacco Use Types Packs/Day Years [...] Free 9.3 (H) 2.8 - 5.3 pg/mL [facility] LABOR[facility] TORY SERVICES Specimen Blood - Venous blood (substance) Performing Organization Address City/State/ZIP Code Phon e Number [facility] [address] [place] [address] SERVICES documented in this encounter Visit Diagnoses Not on filedocumented in this encounter Care Teams Curing Press Operator Relationship Specialty Start Date End Date Jennifer Gomez, FRAMER PCP - General 05/10/15 [facility] [address] [place], [place] [id number] documented as of this encounter
--- OUTSIDE RECORDS SUMMARY | 2022-03-23 11:03 | XMS_ITS | Encounter Summary ---
:1945 Author Organization [place] [address] Care Team Providers Name Role Phone Jovany Lott MD Primary Care Provider Encounter Details Date Type Department Care Team Description 10/05/2020 Notes Only Cardiology Merlin Sanchez MD [facility] [place] [address] CARDIOLOGY DEPT. [phone] [place], [place] [address] (Wo rk) Social History Tobacco [...] BEKAH-C with WM FLX Merlin Sanchez MD [facility] Pager 2020 documented in this encounter Plan of Treatment Not on filedocumented as of this encounter Visit Diagnoses Not on filedocumented in this encounter Care Teams Senior Mobile Developer Relationship Specialty Start Date End Date Jovany Lott MD PCP - General Family Medicine 8/6/20 [address] [place] [address] documented as of this encounter
--- OUTSIDE RECORDS SUMMARY | 2022-03-23 11:03 | XMS_ITS | Encounter Summary ---
:1945 Author Organization [facility] [place] [address] Care Team Providers Name Role Phone Jovany Lott MD Primary Care Provider Encounter Details Date Type Department Care Team Description 10/12/2020 Notes Only Cardiology at [facility] Willow Callejas, NIURKA [facility] [place] [address] Social History Tobacco Use Types Packs/Day [...] want totalk to my doctor at the [place] and do a little more research before I decide what to do, I'm a little afraid of it. He notes that he has a scheduled clinic visit in November and will discuss with Dr. Garduno at that time. documented in this encounter Plan of Treatment Not on filedocumented as of this encounter Visit Diagnoses Not on filedocumented in this encounter Care Teams Fast Food Crew Member Relationship Specialty Start Date End Date Jovany Lott MD PCP - General Family Medicine 02/05/20 [place] [phone] documented as of this encounter
--- OUTSIDE RECORDS SUMMARY | 2022-03-23 11:03 | XMS_ITS | Encounter Summary ---
:1945 Author Organization [facility] [place] [address] Care Team Providers Name Role Phone Jovany Lott MD Primary Care Provider Reason for Visit Consultation (Routine) - Closed Specialty Diagnoses / Procedures Referred By Contact Refer red To Contact Cardiology Diagnoses ST elevation (STEMI) myocardial infarction of unspecified site Hyperlipidemia, unspecified PeriDawit muhammad MD [place] [address] [place] [address] [place] [facility] [place] CARDIOLOG[facility] D EPT [address] [place] [address] Fax: Referral ID Status Reason Start Date Expiration Date Visits V isits Requested Authorized [id number] Closed Consult, Test 02/10/2020 02/09/2021 [facility] PCP Updated and/or Approved Encounter Details Date Type Department Care Team Description 03/12/2020 TH Visit Cardiology at [facility] Melina Payan Fredrickson type IIa hyperli poproteinemia; (TeleHealth) [facility] Hyperglycemia; [facility] Elevated TSH; [facility] Hypothyroidism, acquired [id number] CARDIOLOGY DEPT [phone] [place], [place] [address] Social History Tobacco Use Types Packs/Day Years Used Date Former Smoker Cigars 0.5 Quit: 11/29/19 20 Smokeless Tobacco: Former User Comments: Quit chew tobacco years and y ears ago Sex Assigned at Date Recorded Not on file documented as of this encounter Progress Notes Melina Payan MD - 03/12/2020 1:00 PM EDT [facility]--Initial Consultation [...] Social History: 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 They have [...] medications for this visit. 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 He has multiple cardiovascular risk factors including peripheral artery disease, hyperlipidemia (elevated LDL, depressed HDL), a 86-nvwf-unho history of smoking, and prediabetes. Jovany quit [...] but Jovany replied: I can't drive to [employer] every 2 weeks for that. I explained [...] hypothyroidism documented in this encounter Care Teams Rn Clinical Trials Relationship Specialty Start Date End Date Jovany Lott MD PCP - General Family Medicine 02/05/20 [place] [address] documented as of this encounter
--- OUTSIDE RECORDS SUMMARY | 2022-03-23 11:03 | XMS_ITS | Encounter Summary ---
:1945 Author Organization [facility] Address [address] [place] [address] Care Team Providers Name Role Phone Jennifer oGmez OVEN ROASTER Primary Care Provider Encounter Details Date Type Department Care Team Description 03/19/2019 Results Only [facility] Angel Luis Lott MD [phone] [address] [place], [place] [phone] (Wo rk) Social History Tobacco Use Types [...] 16:47 EDT) Pathology SURGICAL PATHOLOGY REPORT [facility] MED[facility] Report: Reports generated via electronic interface conta in original data; [facility] however they are lacking the format of the original re port. SERVICES Caution should be taken when reading/interpreting unfo rmatted reports. Name: ? ANGEL LUIS HI ? Accession #: ? [id number] ? : ? 1945 (Age: 8 3) [...] Organization Address City/State/ZIP Code Phon e Number [facility] [address] [place] [address] SERVICES documented in this encounter Visit Diagnoses Not on filedocumented in this encounter Care Teams Supervisor Bottle Machines Relationship Specialty Start Date End Date Jennifer Gomez NP PCP - General 05/10/15 [facility] [address] [place], [place] [id number] documented as of this encounter
--- OUTSIDE RECORDS SUMMARY | 2022-03-23 11:03 | XMS_ITS | Encounter Summary ---
:1945 Author Organization [facility] [place] [address] Care Team Providers Name Role Phone Jovany Lott MD Primary Care Provider Encounter Details Date Type Department Care Team Description 11/10/2020 Telephone Cardiology at [facility] [place] [address] Social History Tobacco Use Types Packs/Day [...] on filedocumented in this encounter Care Teams Security Installer Relationship Specialty Start Date End Date Jovany Lott MD PCP - General Family Medicine 02/05/20 [place] [phone] documented as of this encounter
--- OUTSIDE RECORDS SUMMARY | 2022-03-23 11:03 | XMS_ITS | Encounter Summary ---
:1945 Author Organization [facility] Address [address] [place] [address] Care Team Providers Name Role Phone Jennifer Gomez PARTS CHASER Primary Care Provider Encounter Details Date Type Department Care Team Description 01/25/2022 Lab Requisition [facility] Outr Resulting Lab, Pathology & Laboratory Provider [facility] [address] [place], [place] [address] Social History Tobacco Use Types Packs/Day Years [...] Pathologist Sig nature Salmonella PCR Negative Negative [facility] LABORATORY SERVICES Shigella/Enteroinvasive Negative Negative [facility] E. coli LABORATORY SERVICES HN LAB CAMPYLOBACTER PCR Negative Negative [facility] LABORATORY SERVICES Shiga Toxin PCR Negative Negative [facility] LABORATORY SERVICES Specimen Feces - Specimen from rectum (specimen) Performing Organization Address City/State/ZIP Code Phon e Number [facility] LAB[facility]ORY [address] [place] [address] SERVICES documented in this encounter Visit Diagnoses Not on filedocumented in this encounter Care Teams Cemetery Laborer Relationship Specialty Start Date End Date Jennifer Gomez, PARTS CHASER PCP - General 05/10/15 [facility] [address] [place], [place] [id number] documented as of this encounter
--- OUTSIDE RECORDS SUMMARY | 2022-03-23 11:03 | XMS_ITS | Encounter Summary ---
:1945 Author Organization [facility] Address [address] [place] [address] Care Team Providers Name Role Phone Jennifer Gomez ICE CRUSHER Primary Care Provider Encounter Details Date Type Department Care Team Description 09/07/2020 Lab Requisition [facility] Outr Resulting Lab, Pathology & Laboratory Provider [facility] [address] [place], [place] [address] Social History Tobacco Use Types Packs/Day Years Used Date Never Assessed Sex Assigned at Date Recorded Not on file documented as of this encounter Plan of Treatment Not on filedocumented as of this encounter Procedures Procedure Name Priority Date/Time Associated Diagnosis Comme nts COVID-19 TEST [facility] Today 09/07/2020 9:45 EST LAB PCR COVID-19 TESTING Routine 09/07/2020 9:45 EST Resu lts for this procedure are i n the results section. documented in this encounter Results COVID-19 TEST [facility] LAB PCR (09/07/2020 9:45 EST) Specimen Swab - Entire nasopharynx (body structur e) Performing Organization Address City/State/ZIP Code Phon e Number [facility] [address] [place] [address] SERVICES COVID-19 TESTING (09/07/2020 9:45 EST) COVID-19 rt-PCR Negative Negative [facility] Result Comment: [facility]ENTER [facility] This test [...] developed and its performance characteristics determined by [facility]. It has not been cleared or approved [...] defined by the FDA Performed on the [employer] 7 Pro RT-PCR System. Performing Lab [facility] Lab [facility] SERVICES Specimen Swab Performing Organization Address City/State/ZIP Code Phon e Number [facility] [address] [place] [address] SERVICES documented in this encounter Visit Diagnoses Not on filedocumented in this encounter Care Teams Willow Analyst Relationship Specialty Start Date End Date Jennifer Gomez NP PCP - General 05/10/15 [facility] [address] [place], [place] [address] documented as of this encounter
--- OUTSIDE RECORDS SUMMARY | 2022-03-23 11:03 | XMS_ITS | Encounter Summary ---
:1945 Author Organization [facility] Address [address] [place] [address] Care Team Providers Name Role Phone Jennifer Gomez GERIATRIC ASSISTANT Primary Care Provider Encounter Details Date Type Department Care Team Description 03/19/2019 Hospital Encounter [facility] Sylvia Unknown, Provider, [facility] 0 [facility] [phone] [place] [address] (Work) [phone] Social History Tobacco Use Types Packs/Day Years Used Date Never Assessed Sex Assigned at Date Recorded Not on file documented as of this encounter Discharge Disposition Disposition Code Departure Means Destination Home or Self [facility] documented in this encounter Plan of Treatment Not on filedocumented as of this encounter Visit Diagnoses Not on filedocumented in this encounter Care Teams Parlor Chaperone Relationship Specialty Start Date End Date Jennifer Gomez, GERIATRIC ASSISTANT PCP - General 05/10/[address] [facility] [address] [place], [place] [address] documented as of this encounter
--- OUTSIDE RECORDS SUMMARY | 2022-03-23 11:04 | XMS_ITS | Encounter Summary ---
:1945 Author Organization [facility] [place] [address] Care Team Providers Name Role Phone France Lam MD Primary Care Provider Encounter Details Date Type Department Care Team Description 12/08/2019 Telephone Neurosurgery at [facility] [place] [address] Social History Tobacco Use Types Packs/Day Years Used Date Current Every Day Smoker Cigars 0.5 Sex Assigned at Date Recorded Not on file documented as of this encounter Miscellaneous Notes Telephone Encounter - Elza Bradshaw - 12/22/2019 6:[address] in eDH Telephone Encounter - Elza Bradshaw - 12/18/2019 3:43 PM EDT Left message at [facility] requesting they call back to advise if patient has been scheduled for CT. Telephone Encounter - Sarah Boucher - 12/08/2019 3:[address] order to [facility] to schedule, 12/16-12/18 for 12/22 TOV scheduled w/[facility] Telephone Encounter - Sarah Boucher - 12/08/2019 9:50 AM EDT RN, please put in CT order external=[facility] Pt's called not able to come to [facility] on 12/[address] requested to have [address] locally at [facility] call w/results. documented in this encounter Plan of Treatment Not on filedocumented as of this encounter Visit Diagnoses Not on filedocumented in this encounter Care Teams Emt Dispatcher Relationship Specialty Start Date End Date France Lam MD PCP - General 05/02/13 02/04/20 [address] [place] [address] documented as of this encounter
--- OUTSIDE RECORDS SUMMARY | 2022-03-23 11:04 | XMS_ITS | Encounter Summary ---
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 S/P DESx3 in the bytqpwvn-la-mtcgxh RCA. Aspiration thrombectomy performed, and integrellin bolus [...] with ICH, bilateral PE; paroxysmal atrial fibrillation [[id number]: 5]; PAD; HLD; HTN; smoking and PFO, who presents for post-discharge cardiovascular follow-up. CV issues are currently stable. Plan 1. CAD - CCS Class 0. Recovering well. He has completed 1 month of triple therapy. He may stop his aspirin, and resume clopidogrel and apixaban. Starting cardiac rehab. He wishes to pursue PCSK9 referral via the [place] system. 2. Afib - CHADS2-vasc 5, presently [...] 6 months Faustino Garduno MD Time spent: [id number] 0-5min [id number] 6-10min 6876WEB3 11-15min 6143EHW3 16-20min XXXX 8909LZX3 21-30min 1703DVL9 31-40min 4689QCN3 40+ min documented in this encounter Plan [...] type documented in this encounter Care Teams Hourly Sign Language Interpreter Relationship Specialty Start Date End Date France Lam MD PCP - General 05/02/13 02/04/20 [address] [place] [address] documented as of this encounter
--- OUTSIDE RECORDS SUMMARY | 2022-03-23 11:04 | XMS_ITS | Encounter Summary ---
:1945 [place] [address] Care Team Providers Name Role Phone France Lam MD Primary Care Provider Encounter Details Date Type Department Care Team Description 12/08/2019 Orders Only Neurosurgery at [facility] Natalia Delong, Intracranial [facility] [place] [address] Social History Tobacco Use Types Packs/Day Years Used Date Current Every Day Smoker Cigars 0.5 Sex Assigned at Date Recorded Not on file documented as of this encounter Plan of Treatment Not on filedocumented as of this encounter Visit Diagnoses Diagnosis Intracranial hemorrhage Unspecified intracranial hemorrhage documented in this encounter Care Teams Supervisor Wood Crew Relationship Specialty Start Date End Date France Lam MD PCP - General 05/02/13 02/04/20 [address] [place] [address] documented as of this encounter
--- OUTSIDE RECORDS SUMMARY | 2022-03-23 11:04 | XMS_ITS | Encounter Summary ---
:1945 Author Organization [facility] Address [address] [facility] [place] [address] Care Team Providers Name Role Phone France Lam MD Primary Care Provider Encounter Details Date Type Department Care Team Description 12/18/2019 Ancillary Procedure Radiology Library at Debi Lam [facility] [address] [place] [id number] [place] [phone] Social History Tobacco Use Types Packs/Day Years [...] is for storage only. France Lam MD [facility] FILM LIBRARY ORDERABLES Performing Organization Address City/State/ZIP Code Phon e Number [place], [place] documented in this encounter Visit Diagnoses Not on filedocumented in this encounter Care Teams Intertype Operator Relationship Specialty Start Date End Date France Lam MD PCP - General 05/02/13 02/04/20 [address] [place] [address] documented as of this encounter
--- OUTSIDE RECORDS SUMMARY | 2022-03-23 11:04 | XMS_ITS | Encounter Summary ---
:1945 Author Organization [facility] [place] [address] Care Team Providers Name Role Phone Frnace Lam MD Primary Care Provider Encounter Details Date Type Department Care Team Description 12/23/2019 TH Visit Neurosurgery at [facility] Alfreda Salas Intracranial (TeleHealth) [facility] C, ACADEMIC ADMINIST[place] [address] Center [phone] [place] [address] Social History Tobacco Use Types Packs/Day Years Used Date Current Every Day Smoker Cigars 0.5 Sex Assigned at Date Recorded Not on file documented as of this encounter Progress Notes Alfreda Salas C, ACADEMIC ADMINISTRATOR - 12/23/2019 1:30 PM EDT Images from [...] 2 week follow up head CT at [facility], showing slight decrease in size and attenuation [...] 3-4 weeks which may be done at [facility] with follow up TOV [facility]. Head CT 12/18/19 Assessment and Plan Jovany [...] hemorrhage documented in this encounter Care Teams Solar Business Developer Relationship Specialty Start Date End Date France Lam MD PCP - General 05/02/13 02/04/20 [address] [place] [address] documented as of this encounter
--- OUTSIDE RECORDS SUMMARY | 2022-03-23 11:04 | XMS_ITS | Encounter Summary ---
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 [phone] [place] [address] Social History Tobacco Use Types Packs/Day Years [...] best is to differ this conversation until [facility] OAC strategy has been set. Specifically, if this is being treated as a provoked dvt/pe, then would re-evaluate to coordinated with OAC discontinuation. I discussed the above findings with the patient and his both of whom appear to understand and is in agreement with the plan going forward. Merlin Sanchez M.D., F.A.C.C. machine ii cutter Pager 2020 >50% of the 15 minute [...] failure documented in this encounter Care Teams Peoplesoft Relationship Specialty Start Date End Date France Lam MD PCP - General 05/02/13 02/04/20 [address] [place] [address] documented as of this encounter
--- OUTSIDE RECORDS SUMMARY | 2022-03-23 11:04 | XMS_ITS | Encounter Summary ---
:1945 Author Organization [facility] [place] [address] Care Team Providers Name Role Phone France Lam MD Primary Care Provider Encounter Details Date Type Department Care Team Description 01/09/2020 TH Visit Neurology at [facility] Efrain Nicole, Intracranial hemorrhage; (TeleHealth) [facility] ESTEFANY Tobacco abuse; Drive [facility] Cerebrovascular accident (CV A) due to embolism of right posterior cerebral artery [facility] [address] NEUROLOGY [phone] [place] [address] Social History Tobacco Use Types Packs/Day Years Used Date Current Every Day Smoker Cigars 0.5 Sex Assigned at Date Recorded Not on file documented as of this encounter Progress Notes Efrain Nicole PA - 01/09/2020 9:00 AM EDT [facility] [place] [address] t: [phone] / f: [phone] TELEPHONE ENCOUNTER Date of Appointment: 01/09/2020 I [...] cardiology - had f/u head CT at [facility] which was stable with resolving known hemorrhage - has not resumed smoking -has been in touch with Dr. Sanchez for Watchman, deferred for duration of anticoagulation for PE Modified [place] Scale (MRS) 0: No symptoms at all [...] -advised vision/eye exam with his local provider ([facility]); consider referral to neuro-ophthalmology here in [...] artery documented in this encounter Care Teams Data Report Analyst Relationship Specialty Start Date End Date France Lam MD PCP - General 05/02/13 02/04/20 [address] [place] [address] documented as of this encounter
--- OUTSIDE RECORDS SUMMARY | 2022-03-23 11:04 | XMS_ITS | Encounter Summary ---
:1945 Author Organization [facility] Address [facility] [place] [address] Care Team Providers Name Role Phone France Lam MD Primary Care Provider Encounter Details Date Type Department Care Team Description 12/22/2019 Telephone Cardiology Riki Stevens, [facility] [place] [address] [facility] [phone] GENERAL INTERNAL MEDICINE [place] [phone] (Wo rk) Social History Tobacco Use Types [...] on filedocumented in this encounter Care Teams History Department Chair Relationship Specialty Start Date End Date France Lam MD PCP - General 05/02/13 02/04/20 [address] [place] [address] documented as of this encounter
--- OUTSIDE RECORDS SUMMARY | 2022-03-23 11:04 | XMS_ITS | Encounter Summary ---
:1945 Author Organization [facility] [place] [address] Care Team Providers Name Role Phone France Lam MD Primary Care Provider Encounter Details Date Type Department Care Team Description 12/24/2019 Telephone Neurosurgery at [facility] Cathy Jay [facility] [place] [address] Social History Tobacco Use Types Packs/Day [...] CT on 12/28. Faxed push request to [facility] Telephone Encounter - Elza Bradshaw - 12/25/2019 11:50 AM EDT Called [place] [employer] manufacturer's representative I spoke with patient has plan N and does not require authorization. Order faxed with demos to [facility]. Postponing to allow time for scheduling. Telephone Encounter - Cathy Jay - 12/24/2019 11:42 AM EDT Patient needs f/u appointment(s): With [facility] on/around 01/13 3 weeks TOV, s/p Intracranial hemorrhage, [facility] prior 1. [place] [facility] [employer] [place]? ~~~~~~~~~~~~~~~~~~~~~~~~~~~~~~~~~~~~~~~~~~~~~~~~~~~~~~ Alfreda Salas APRN Sent: Maria Victoria December 23, 2019 ??7:39 PM To: P [facility] Neurosurgery Home Service Technician Jovany Hi ( ) : 1945> ?? Follow-up and Dispositions Check-out Note: Follow up head CT and TOV in 3 weeks unless vision worsens or he develops new symptoms in meantime ([facility] for CT) documented in this encounter Plan of Treatment Not on filedocumented as of this encounter Visit Diagnoses Not on filedocumented in this encounter Care Teams Retail Stock Clerk Relationship Specialty Start Date End Date France Lam MD PCP - General 05/02/13 02/04/20 [address] [place] [address] documented as of this encounter
--- OUTSIDE RECORDS SUMMARY | 2022-03-23 11:04 | XMS_ITS | Encounter Summary ---
:1945 Author Organization [facility] Address [facility] [place] [address] Care Team Providers Name Role Phone France Lam MD Primary Care Provider Reason for Visit Reason Onset Date Comments TeleHealth 01/08/2020 Appt 01/09/20 Encounter Details Date Type Department Care Team Description 01/08/2020 Telephone Neurology at [facility] Efrain Nicole PA TeleHealth (Appt [facility] [address] [place] [address] NEUROLOGY [phone] [place], [place] [address] (Wo rk) Social History Tobacco [...] on filedocumented in this encounter Care Teams Crate Liner Relationship Specialty Start Date End Date France Lam MD PCP - General 05/02/13 02/04/20 [address] [place] [address] documented as of this encounter
--- OUTSIDE RECORDS SUMMARY | 2022-03-23 11:05 | XMS_ITS | Encounter Summary ---
:1945 Author Organization [facility] [place] [address] Care Team Providers Name Role Phone France Lam MD Primary Care Provider Encounter Details Date Type Department Care Team Description 11/30/2019 Orders Only Cardiology [facility] [place] [address] Social History Tobacco Use Types Packs/Day [...] fajardo ? (Age): 1945(74y) Med Rec#: ? [id number] ?Sex: ?M ? Site Loc: ? Ht / Wt: ??(cm)/ (kg) ? Pt. Loc: ? Study Date: ?? 11/29/2019 ?Pt. Type: Tape: ? Referring: Faustino Garduno Reading: Dawit Mejia ([id number]) Graduate Assistant: [employer] Supervisor [place] Placing: Cedric Eric ([id number]) Interpreting Fellow: Cedric Eric ([phone]) Diagnosis: SUMMARY: 1. Limited bedside echocardiogram perfor med by health information coder supervisor telephone answering service for hypotension following inferior STEMI . 2. [...] ? Mid-Inferior ?Akinetic ? Mid-Inferoseptal ?Hypokinetic ? [place]-Septal ? Normal ? [place]-Anterior ? Normal ? [place]-Lateral ?Normal ? [place]-Inferior ? Hypokinetic ? [place]-Tip ?Normal ? This report has been electronically sign ed by: _ Dawit Mejia MD ? 11/30/2019 12: 53:59 Images reviewed and interpretation rafaela [email or web address] [facility] Cardiac Ultrasound Laboratory Procedure Note Dawit Mejia MD - 11/30/2019Formatti ng of this note might be different from the original. Procedure: Transthoracic Echocardiogram Patient: domenica ACOSTA(Age): [age]y) Med Rec#: [id number] Sex: M Site Loc: Ht / Wt: (cm)/ (kg) Pt. Loc: Study Date: 11/29/2019 Pt. Type: Tape: Referring: Faustino Garduno Reading: Dawit Mejia ([id number]) Graduate Assistant: [employer] Supervisor [place] Placing: Cedric Eric ([id number]) Interpreting Fellow: Cedric Eric ([phone]) Diagnosis: SUMMARY: 1. Limited bedside echocardiogram perfor med by health information coder supervisor telephone answering service for hypotension following inferior STEMI . 2. [...] Normal Mid-Posterolateral Akinetic Mid-Inferior Akinetic Mid-Inferoseptal Hypokinetic [place]-Septal Normal [place]-Anterior Normal [place]-Lateral Normal [place]-Inferior Hypokinetic [place]-Tip Normal This report has been electronically sign ed by: _ Dawit Mejia MD 11/30/2019 12:53:59 Images reviewed and interpretation verif ied [facility] Cardiac Ultrasound Laboratory Unknown ECHO ORDERABLES documented in this encounter Visit Diagnoses Not on filedocumented in this encounter Care Teams Supervisor Production Department Relationship Specialty Start Date End Date France Lam MD PCP - General 05/02/13 02/04/20 [address] [place] [address] documented as of this encounter
--- OUTSIDE RECORDS SUMMARY | 2022-03-23 11:05 | XMS_ITS | Encounter Summary ---
:1945 Author Organization [facility] [place] [address] Care Team Providers Name Role Phone France Lam MD Primary Care Provider Reason for Referral Consultation (Routine) - Specialty Diagnoses / Procedures Referred By Contact Refer red To Contact Cardiology Diagnoses Acute ST elevation myocardial infarction (STEMI) of inferior wall Drarell Glasgow MD [facility] [place] [address] Referral ID Status Reason Start Date Expiration Date Visits V isits Requested Authorized [id number] Consult, 12/08/2019 06/05/2020 1 1 Test & Treat Consultation (Routine) - Closed Specialty Diagnoses / Referred By Contact Referred To Contact Procedures Cardiac Rehabilitation Diagnoses ST elevation myocardial infarction involving right coronary artery Gretchen Yoon, Cardiac Rehab, [address] [place] [phone] Fax: Referral ID Status Reason Start Date Expiration Date Visits V isits Requested Authorized [id number] Closed Consult, 12/08/2019 06/05/2020 36 36 Test & Treat Reason for Visit Auth/Cert Specialty Diagnoses / Procedures Referred By Contact Refer red To Contact Diagnoses STEMI (ST elevation myocardial infarction) STEMI Procedures CARDIAC CATHETERIZATION Referral ID Status Reason Start Date Expiration Date Visits Requ ested Visits Authorized [id number] 1 1 Encounter Details Date Type Department Care Team Description 11/29/2019 - Hospital Encounter Cardiac Special YoungBarbra MD [facility] [place] [address] ST elevation myocardial infarction invol ving left main coronary artery; 12/08/2019 Care Unit Paris Lozano MD [facility] [place] [address] ST elevation myocardial infarction invol ving right coronary artery; [facility] Edema of upper extremity; Hospital Intracranial hemorrhage; [facility] Paroxysma l atrial fibrillation; Drive Acute pulmonary embolism, un specified pulmonary embolism type, unspecified whether acute cor pulmonale present; [place], [place] Acute ST elevat ion myocardial infarction (STEMI) of inferior wall [id number] Social History Tobacco Use Types Packs/Day Years [...] Luis Salinas Patient Age: 74 y.o. Language: Turkmen Race: White Ethnicity: Not nor Admit date: [...] months on: antiplatelet therapy at discretion of time clock repairer - Repeat TTE in 3 months to reassess LV function - Repeat BMP in 1-2 weeks given recent start lisinopril - Referred to lipid clinic for consideration of PCSK-9 inhibitor given STEMI with intolerance of statins - Started on amiodarone this admission for recurrent rapid atrial flutter with rates ~170, recommendcontinued assessment of necessity of rhythm control strategy with time clock repairer - Amiodarone monitoring recommendations as below - [...] please contact your inpatient physician through the [facility] Pediatric Hospitalist . Issues after hours and on weekends [...] and Compazine. He was transferred directly to [facility] via [facility] for further management. Patient had an emergent PCI with 3 MACARIO stents placed to his RCA, with mild disease of LCX (report pending) at [facility]. He was found to be persistently hypotensive requiring Levo up to 10mcg/min. He was transferred to [facility] after the cath procedure. Bedside RHC showed [...] drip as described above. On arrival at [facility] he was taken for cardiac cath where [...] Electronically signed by: Estefani Harris [facility] ([phone]), at 11/29/2019 4:[address] Head wo Contrast (Generic) (Exam End: 11/30/2019 10:41 AM) Impression Focal hemorrhage with small amount of adjacent edema projecting in the region of the left optic tract. Thank you for letting us participate in the care of this patient. For questions regarding this report, please contact the number below. Electronically signed by: [facility] ([phone]), at 11/30/2019 12:[address] Head wo [...] below. Electronically signed by: [facility] ([phone]), at 11/30/2019 5:[address] Angiogram [place] (Exam End: 11/30/2019 4:36 PM) Impression Head CT: Stable hemorrhage in the region of the left optic tract. CTA: Negative exam. No abnormal vasculature in the area of hemorrhage. Thank you for letting us participate in the care of this patient. For questions regarding this report, please contact the number below. Electronically signed by: Angel Luis Barboza MD, [facility] ([phone]), at 11/30/2019 5:04 PM MRI Brain wo [...] by: Angel Luis Barboza MD, [facility] ([phone]), at 12/01/2019 8:02 PM XR Chest One [...] Electronically signed by: Merari Collins [facility] ([phone]), at 12/01/2019 3:53 PM XR Chest One View (Exam End: 12/02/2019 1:00 PM) Impression Slightly increased small bibasilar pleural effusions and atelectasis. Thank you for letting us participate in the care of this patient. For questions regarding this report, please contact the number below. Electronically signed by: Ashly Marley [facility] ([phone]), at 12/02/2019 1:[address] Cardiac for [...] Electronically signed by: Roselyn Luciano [facility] ([phone]), at 12/04/2019 6:16 PM MRI Brain wwo Contrast (Generic) (Exam End: 12/05/2019 7:59 PM) Impression No significant interval change. Thank you for letting us participate in the care of this patient. For questions regarding this report, please contact the number below. Electronically signed by: Merari Collins [facility] ([phone]), at 12/05/2019 10:[address] Head wo Contrast (Generic) (Exam End: 12/06/2019 7:01 PM) Impression Unchanged size but mildly decreased density of the intraparenchymal hemorrhage along the course of the left optic tract with unchanged mild edema. Preliminary report signed by: Slivio Baker at 12/06/2019 8:02 PM I have personally reviewed the image(s) and the resident's interpretation and agree with the findings, Merari Collins at 12/06/2019 10:06 PM Thank you for letting us participate in the care of this patient. For questions regarding this report, please contact the number below. Electronically signed by: Merari Collins [facility] ([phone]), at 12/06/2019 10:06 PM Pending Studies and Lab Data: N/A Discharge Conditions/Prognosis: stable Discharge to: home Updated Allergies/ADRs: Allergies Allergen Reactions ??? Penicillins Pt doesn't remember reaction ??? Reqecrw-Kjk-Yhp Reductase Inhibitors Stiff neck, upset stomach, back [...] medications at another hospital and then at [facility] you had a stent placed in a [...] FOR ONE MONTH AND THEN STOP. Your time clock repairer may tell you to start this medication again after one year. Clopidogrel (Plavix) 75 mg daily - This medication will help prevent clots from forming in your blood, which will help protect the stent that was placed in your heart vessel. TAKE THIS FOR ONE YEAR ANDTHEN DISCUSS WITH YOUR MUSIC ARTIST WHETHER TO STOP. Amiodarone 400mg twice daily [...] follow up: Your primary care provider and time clock repairer will manage your blood thinner (apixaban). You do not need lab monitoring of this medication. Diet: Please consume a healthy diet low in cholesterol Follow up Appointments: 12/10/2019 at 3:10PM with PCP Angel Luis Lott Future Appointments Date Time Provider Department Center 12/23/2019 1:30 PM Alfreda Salas APRN [address] 12/26/2019 9:40 AM Merlin Sanchez MD [facility] CARD 4A [facility] 12/30/2019 3:40 PM Gretchen Yoon MD [facility] 4A [facility] Future Appointments and Orders Future Appointments and Orders Future Appointments Provider Department Dept Phone 12/23/2019 1:30 PM Alfreda Salas APRN Neurosurgery at [facility] Arrive at: Home [phone] Please do not come in for this visit. Your provider will call you at the number you provided. 12/26/2019 9:40 AM Merlin Sanchez MD Cardiology at [facility] Arrive at: Home [phone] Please do not come in for this visit. Your provider will call you at the number you provided. 12/30/2019 3:40 PM Gretchen Yoon MD Cardiology at [facility] Arrive at: Home [phone] Please do not come in for this visit. Your provider will call you at the number you provided. Future Orders Complete By Expires Referral to Cardiac Rehab [[id number] Custom] As directed Process Instructions: If no progress note charted, please enter Clinical details in comments. Scheduling Instructions: Questions: My question or request is: STEMI. Cardiac rehab at [facility] Referral to [facility] [REF43 Custom] As directed Process Instructions: If no progress note charted, please enter Clinical details in comments. Scheduling Instructions: Questions: My question or request is: patient with inferior stemi with history of statin allergy (rash) - please evaluate for psck9 inhibitor. Referral to Home Health - at DISCHARGE [VCV0559 CPT(R)] As directed Process Instructions: Scheduling Instructions: Comments: DOCUMENTATION FOR VNA SERVICES PATIENT'S LOCATION: [address] [phone] (home) Historic Preservationist's Name: Self In discussion with the attending physician, it is certified that this patient is under his/her care and that MD, or an PUBLIC RELATIONS SUPERVISOR, GUARD MANAGER, or PA who is working directly with him/her, had a ydsb-xy-azwv encounter that meets the physician ubjt-vj-uytz encounter requirements with this patient on 12/07/2019. [...] CARE AGENCY: [facility], PHONE: [phone] FAX: [phone] Start of care: 24-48 hours after hospital [...] MD [address] / [place] [address] All A agencies which cover the area [...] info: PCP Your PCP: France Lam MD [phone] For questions regarding this document or issues relating to this hospitalization on the Cardiology Service, please contact your inpatient physician through the [facility] Pediatric Hospitalist . Issues after hours and on weekends will be handled by the Visual Display Manager on-call. Patient Instructions: Neurology Your Diagnosis: [...] follow-up appointment in the neurology clinic at [facility]. See below for the appointment time. [...] 1:30 PM Alfreda Salas APRN Neurosurgery at [facility] Arrive at: Home [phone] Please do not come in for this visit. Your provider will call you at the number you provided. 12/26/2019 9:40 AM Merlin Sanchez MD Cardiology at [facility] Arrive at: Home [phone] Please do not come in for this visit. Your provider will call you at the number you provided. 12/30/2019 3:40 PM Gretchen Yoon MD Cardiology at [facility] Arrive at: Home [phone] Please do not come in for this visit. Your provider will call you at the number you provided. Future Orders Complete By Expires Referral to Cardiac Rehab [[id number] Custom] As directed Process Instructions: If no progress note charted, please enter Clinical details in comments. Scheduling Instructions: Questions: My question or request is: STEMI. Cardiac rehab at [facility] Referral to [facility] Treatment [facility] [REF43 Custom] As directed Process Instructions: If no progress note charted, please enter Clinical details in comments. Scheduling Instructions: Questions: My question or request is: patient with inferior stemi with history of statin allergy (rash) - please evaluate for psck9 inhibitor. Referral to Home Health - at DISCHARGE [[id number] CPT(R)] As directed Process Instructions: Scheduling Instructions: Comments: DOCUMENTATION FOR VNA SERVICES PATIENT'S LOCATION: [address] [phone] (home) Historic Preservationist's Name: Self In discussion with the attending physician, it is certified that this patient is under his/her care and that MD, or an PUBLIC RELATIONS SUPERVISOR, GUARD MANAGER, or PA who is working directly with him/her, had a twvq-pv-wzof encounter that meets the physician xaoe-wp-sewt encounter requirements with this patient on 12/07/2019. [...] CARE AGENCY: [facility], PHONE: [phone] FAX: [phone] Start of care: 24-48 hours after hospital [...] France Lam MD [address] / [facility] [address] All A agencies which cover the area [...] contact info: PCP Discharge References/Attachments Atrial Fibrillation (Turkmen) Cardiac Rehabilitation (Turkmen) Heart Failure (Turkmen) Heart Failure: Limiting Sodium (Turkmen) Hemorrhagic Stroke: General Info (Turkmen) Smoking: Stopping (Turkmen) Stroke Rehabilitation: General Info (Turkmen) Pulmonary Embolism (Turkmen) Riki Stevens MD PGY-3, Internal Medicine Cardiology S2, #[id number] Associated attestation - Paris Dodd MD - 12/09/2019 4:44 PM EDT Cardiology Attending Discharge Addendum I was the assigned attending time clock repairer for this clinical encounter. For the purposes [...] complications include novel onset, paroxysmal atrial fibrillation [[id number]: 5] & L-sided diplopia with potential hemineglect [...] My contact information: Paris Matt MD MPH [place] [phone] (office); Pager #[phone] Email: [email or web address] documented in this encounter Discharge Instructions Patient InstructionsFiRiki de jesus MD - 12/02/2019 9:56 AM EDT Images from the original note were not included. Why you were hospitalized: You had a heart attack. You received clot-busting medications at another hospital and then at [facility] you had a stent placed in a [...] FOR ONE MONTH AND THEN STOP. Your time clock repairer may tell you to start this medication again after one year. Clopidogrel (Plavix) 75 mg daily - This medication will help prevent clots from forming in your blood, which will help protect the stent that was placed in your heart vessel. TAKE THIS FOR ONE YEAR ANDTHEN DISCUSS WITH YOUR MUSIC ARTIST WHETHER TO STOP. Amiodarone 400mg twice daily [...] follow up: Your primary care provider and time clock repairer will manage your blood thinner (apixaban). You do not need lab monitoring of this medication. Diet: Please consume a healthy diet low in cholesterol Follow up Appointments: 12/10/2019 at 3:10PM with PCP Angel Luis Lott Future Appointments Date Time Provider Department Center 12/23/2019 1:30 PM Alfreda Salas APRN [facility] BOHXY1R [facility] 12/26/2019 9:40 AM Merlin Sanchez MD [facility] CARD 4A [facility] 12/30/2019 3:40 PM Gretchen Yoon MD [facility] CARD 4A [facility] Future Appointments and Orders Future Appointments and Orders Future Appointments Provider Department Dept Phone 12/23/2019 1:30 PM Alfreda Salas APRN Neurosurgery at [facility] Arrive at: Home [phone] Please do not come in for this visit. Your provider will call you at the number you provided. 12/26/2019 9:40 AM Merlin Sanchez MD Cardiology at [facility] Arrive at: Home [phone] Please do not come in for this visit. Your provider will call you at the number you provided. 12/30/2019 3:40 PM Gretchen Yoon MD Cardiology at [facility] Arrive at: Home [phone] Please do not come in for this visit. Your provider will call you at the number you provided. Future Orders Complete By Expires Referral to Cardiac Rehab [[id number] Custom] As directed Process Instructions: If no progress note charted, please enter Clinical details in comments. Scheduling Instructions: Questions: My question or request is: STEMI. Cardiac rehab at [facility] Referral to [facility] Treatment Center [REF43 Custom] As directed Process Instructions: If no progress note charted, please enter Clinical details in comments. Scheduling Instructions: Questions: My question or request is: patient with inferior stemi with history of statin allergy (rash) - please evaluate for psck9 inhibitor. Referral to Home Health - at DISCHARGE [TRR7425 CPT(R)] As directed Process Instructions: Scheduling Instructions: Comments: DOCUMENTATION FOR VNA SERVICES PATIENT'S LOCATION: [address] [phone] (home) Historic Preservationist's Name: Self In discussion with the attending physician, it is certified that this patient is under his/her care and that MD, or an PUBLIC RELATIONS SUPERVISOR, GUARD MANAGER, or PA who is working directly with him/her, had a cepd-na-fxam encounter that meets the physician lulc-pc-hhrz encounter requirements with this patient on 12/07/2019. [...] CARE AGENCY: [facility], PHONE: [phone] FAX: [phone] Start of care: 24-48 hours after hospital [...] MD [address] / [place] [address] All A agencies which cover the area [...] info: PCP Your PCP: France Lam MD [phone] For questions regarding this document or issues relating to this hospitalization on the Cardiology Service, please contact your inpatient physician through the [facility] Pediatric Hospitalist . Issues after hours and on weekends will be handled by the Visual Display Manager on-call. Patient Instructions: Neurology Your Diagnosis: [...] follow-up appointment in the neurology clinic at [facility]. See below for the appointment time. If you do not have an appointment, you will be called with a time/date for this appointment. ??? Primary Care Provider: Please follow up with your Primary Care Provider within one to 2 weeks ofdischarge. AttachmentsThe following attachments cannot be sent through Care Everywhere. Atrial Fibrillation (Turkmen)Cardiac Rehabilitation (Turkmen)Heart Failure (Turkmen)Heart Failure: Limiting Sodium (Turkmen)Hemorrhagic Stroke: General Info (Turkmen)Smoking: Stopping (Turkmen)Stroke Rehabilitation: General Info (Turkmen)Pulmonary Embolism (Turkmen)documented in this encounter Medications at Time of [...] consulted in the interim. Vikash Rodriguez Pager: [phone] Paris Dodd MD - 12/08/2019 8:57 AM [...] complications include novel onset, paroxysmal atrial fibrillation [DRR6CT2OUXS: 5] & L-sided diplopia with potential hemineglect [...] consulted in the interim. Vikash Rodriguez Pager: [phone] Paris Dodd MD - 12/07/2019 9:55 AM [...] complications include novel onset, paroxysmal atrial fibrillation [IOH5HP5NDPP: 5] & L-sided diplopia with potential hemineglect [...] complications include novel onset, paroxysmal atrial fibrillation [JON2VD5JKDB: 5] & L-sided diplopia with potential hemineglect [...] complications include novel onset, paroxysmal atrial fibrillation [BUX0LM0URQE: 5] & L-sided diplopia with potential hemineglect [...] today; additional complications include paroxysmal atrial fibrillation [YHQ6HT1ZMMQ: 4] c/b possible cardioembolic stroke, ICH from [...] length from neck/greatest diameter to back wall: BOLIVIAN 91, CAU 13: 19 mm CORTES 1, [...] a non-culprit artery. S/P DESx3 in the sngehumf-se-wucfsf RCA. Aspiration thrombectomy performed, and integrellin bolus [...] complications include novel onset, paroxysmal atrial fibrillation [TAM9LJ3EQQA: 5] & L-sided diplopia with potential hemineglect [...] R occipital cardioembolic stroke #Paroxysmal Afib with XV6VIICH2C score of 5 #New segmental bilateral PEs [...] Glasgow MD PGY1, Internal Medicine Cardiology S2, #7479 Associated attestation - Paris Dodd MD - 12/05/2019 2:59 PM EDT I was the assigned attending time clock repairer for this clinical encounter. For the purposes [...] 12/04/2019 10:36 AM EDT Office of Care Management(OCM)/Amusement Machine Mechanic(CM)/Discharge Planning Service: Cardiology S2 team CM Bernie Alexander,RN,BSN,MA,ACM pgr [phone] Reviewed record and in Cardiology Rounds with MD team,CMs, wing mailer machine operator, WOOL BATTING WORKER. Pt is anticipated ready for d/c later today. Met w pt re d/c plan and he continues to agree with home PT/OT/RN w [facility]. His son is bringing his to pick him up together. Discussed Advance Directives and DPOAH- he states he has at home and designated his as primiary; he thought his PCP would have copy. Tel call to PCP who notes no DPOAH on file. Encouraged pt to take his AD to his PCP and to any [facility] appt for each to have on file. [...] complications include novel onset, paroxysmal atrial fibrillation [VPM8JV6PQJE: 4] & L-sided diplopia with potential hemineglect [...] a non-culprit artery. S/P DESx3 in the jmyjuhqm-dz-xcxnmw RCA. Aspiration thrombectomy performed, and integrellin bolus [...] complications include novel onset, paroxysmal atrial fibrillation [XAG2ND0PNDV: 5] & L-sided diplopia with potential hemineglect [...] R occipital cardioembolic stroke #Paroxysmal Afib with ZR0DPPCJ2H score of 5 - No anticoagulation for [...] Glasgow MD PGY1, Internal Medicine Cardiology S2, #1591 I have seen the patient and reviewed [...] in my clinic. Gretchen Yoon MD Pager [phone] Derian Pascual RN - 12/03/2019 9:29 AM [...] Discharge: None Electronically signed: Derian Pascual RN, Amusement Machine Mechanic Pgr: [phone] 12/03/2019 9:29 AM Gretchen Yoon [...] complications include novel onset, paroxysmal atrial fibrillation [EFV7YS2FUJZ: 4] & L-sided diplopia with potential hemineglect [...] a non-culprit artery. S/P DESx3 in the xalmnohc-ts-bnukfw RCA. Aspiration thrombectomy performed, and integrellin bolus [...] complications include novel onset, paroxysmal atrial fibrillation [FEA2PP1MVMB: 5] & L-sided diplopia with potential hemineglect [...] would like to [facility] and follow up with his PCP. Patient voiced strong will to quit smoking now, understood that we have resources available for help. Plan [P]: --Neurologic-- # Concern for Left-Sided Diplopia, r/o Hemineglect # Concern for CVA, last-known well 11/29/19 - MRI showed possible cardioembolic stroke #Afib with BC1NPITC8L score of 5 - Stroke Team Consulted; [...] Anticoagulation/Arrhythmia # Novel Onset, Paroxsymal Atrial Fibrillation [PLF1RG1IIIQ: 5] - Hold off anticoagulation for at [...] w straight cath prn # Nutrition - [facility] Diet, 2g Na. -- Hematology/Oncology-- # Mild [...] Glasgow MD PGY1, Internal Medicine Cardiology S2, #5415 I have seen the patient and reviewed the resident's above history and I agree with the details as written. The assessment and plan were formulated in discussion with me and I agree with them as documented. Gretchen Yoon MD Pager [phone] Raul Hein RN - 12/03/2019 5:55 AM [...] Negative mcL Appearance UA Clear Clear Spec [place] UA 1.026 1.006 - 1.030 Color UA [...] PGY3 Neurology Resident 12/01/2019 Vascular Neurology Pager [phone] Neurology Attending Attestation I evaluated the patient [...] documented. Deepthi Roman MD Vascular Neurology Standard [facility] Swallow Screen: This screen is to be [...] diet as medical provider deems appropriate. Consider FLORICULTURIST consult for full evaluation and diet recommendations. [...] complications include novel onset, paroxysmal atrial fibrillation [XHK0FC6SSFT: 4] & L-sided diplopia with potential hemineglect [...] a non-culprit artery. S/P DESx3 in the fxiwekcz-yn-wslkym RCA. Aspiration thrombectomy performed, and integrellin bolus [...] complications include novel onset, paroxysmal atrial fibrillation [VRP5RZ7GKPH: 5] & L-sided diplopia with potential hemineglect [...] Anticoagulation/Arrhythmia # Novel Onset, Paroxsymal Atrial Fibrillation [POM7DX3VNOV: 5] - Hold off anticoagulation - pending [...] tamsulosin d/t low BP. # Nutrition - [facility] Diet -- Hematology/Oncology-- # Mild Thrombocytopenia, unclear [...] Glasgow MD PGY1, Internal Medicine Cardiology S2, #7143 I have seen the patient and reviewed [...] the ICU team. Gretchen Yoon MD Pager [phone] Natalia Claros APRN - 12/02/2019 8:38 AM [...] - We are signing off. Please page [phone] with any questions or concerns. For questions please call NS pager [phone] Natalia Claros APRN 12/02/2019 8:38 AM Clinical Documentation Improvement: Active Hospital Problems Diagnosis ??? Acute ST elevation myocardial infarction (STEMI) of inferior wall ??? Intracranial hemorrhage ??? Hyperlipidemia ??? Tobacco abuse ??? Claudication from peripheral vascular disease, left Resolved Hospital Problems No resolved problems to display. Tello Hsu, EDUCATION GENERAL MANAGER - 12/02/2019 2:06 AM EDT 06/01/20 2010 [...] Scan in afternoon. Upon arrival back in [facility] placed on low flow NC at 4 [...] complications include novel onset, paroxysmal atrial fibrillation [[id number]: 4] & L-sided diplopia with potential hemineglect for which CVA evaluationto be pursued. Active Problems/Subjective: - 11/28: admitted for inferior STEMI, RV failure requiring pressor - got lytics, aspirin and plavix load, heparin gtt, and eptifibatide. 3 MACARIO stents to RCA. Ridgeway cath - low wedge & CVP so [...] a non-culprit artery. S/P DESx3 in the rxkcsxtk-ry-tpmwhd RCA. Aspiration thrombectomy performed, and integrellin bolus [...] complications include novel onset, paroxysmal atrial fibrillation [[id number]: 4] & L-sided diplopia with potential hemineglect [...] Anticoagulation/Arrhythmia # Novel Onset, Paroxsymal Atrial Fibrillation [[id number]: 4] - Obtain: TTE - Pending CVA [...] tamsulosin d/t low BP. # Nutrition - [facility] Diet -- Hematology/Oncology-- # Mild Thrombocytopenia, unclear [...] MD, PGY1 PGY3, Internal Medicine Cardiology S2, #9024 I have seen the patient and reviewed [...] down the line. Gretchen Yoon MD Pager [phone] ?? Gretchen Yoon MD Pager [phone] Natalia Claros APRN - 12/01/2019 1:33 AM [...] per primary team For questions please call [employer] pager [phone] Natalia Claros APRN 12/01/2019 7:42 AM Clinical Documentation Improvement: Active Hospital Problems Diagnosis ??? Acute ST elevation myocardial infarction (STEMI) of inferior wall ??? Intracranial hemorrhage ??? Hyperlipidemia ??? Tobacco abuse ??? Claudication from peripheral vascular disease, left Resolved Hospital Problems No resolved problems to display. Tello Hsu, EDUCATION GENERAL MANAGER - 11/30/2019 8:44 PM EDT Respiratory Therapy [...] EDT Narrative:Visited in response to request for Nitroglycerin Separator Operator services. Pt was awake, alert, oriented and in bed. Assessment:Patient coping positively with stresses of illness/hospitalization at this time. Pt says that he is hoping to get better and pt is living with and has children and grandchildren. Pt haspurpose of life and has reason to get getter and to be with family. Outcome: Provided emotional and spiritual support and encouraging presence. Nitroglycerin Separator Operator services accepted.Conversation to build trusting relationship.Provided pastoral [...] complications include novel onset, paroxysmal atrial fibrillation [[id number]: 4] & L-sided diplopia with potential hemineglect for which CVA evaluationto be pursued. Active Problems/Subjective: - Overnight, CVP < 12 for which a total of 1 L IVF provided - Today AM, patient complains of subjectively reported, left-sided hemineglect with floaters and diplopia [see: exam]. - Otherwise, c/o neck pain 2/2 R IJ Ridgeway & L radial A line. Otherwise, denies [...] a non-culprit artery. S/P DESx3 in the iamybina-lm-spxulg RCA. Aspiration thrombectomy performed, and integrellin bolus [...] complications include novel onset, paroxysmal atrial fibrillation [[id number]: 4] & L-sided diplopia with potential hemineglect [...] Anticoagulation/Arrhythmia # Novel Onset, Paroxsymal Atrial Fibrillation [[id number]: 4] - Obtain: TTE to confirm rhythm [...] tamsulosin d/t low BP. # Nutrition - [facility] Diet -- Hematology/Oncology-- # Mild Thrombocytopenia, unclear [...] MD, PGY3 PGY3, Internal Medicine Cardiology S2, #5767 I have seen the patient and reviewed [...] down the line. Gretchen Yoon MD Pager [phone] Paola Capps RN - 11/30/2019 6:57 AM EDT PT still requiring 4 of levo, several attempts to titrate down (maps in 70;s) But maps would drop toless than 65. Pt very restless in bed Raising and lowering head denies pain . Integrillin stopped [id number] when bottle complete , urine tea colored [...] PCP: France Lam MD PCP phone #: [phone] Inspector Circuitry Negative: None ID/Chief Complaint: Chest pain History of [...] and Compazine. He was transferred directly to [facility] via [facility] for further management. Patient had an emergent PCI with 3 MCAARIO stents placed to his RCA, with mild disease of LCX (report pending) at [facility]. He was found to be persistently hypotensive requiring Levo up to 10mcg/min. He was transferred to [facility] after the cath procedure. Bedside RHC showed [...] ??? Penicillins Pt doesn't remember reaction ??? Jbpitlr-Yjp-Pyl Reductase Inhibitors Stiff neck, upset stomach, back pain Family History: Mother: Father: [place] 2 Uncles with MIs Social History: Tobacco: Current active smoker 1 ppd. 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 Vitals: Last value Range last [...] in the last 7068 hours. Invalid input(s): [id number] Heme: No results for input(s): LDH, HAPTOGLOBIN, [...] OSH prior to transfer and PCI at [facility]. Massive inferior STEMI with troponin level 20, currently in CVCC due to pressor requirement. BedsideRHC demonstrated evidence of elevated right sided heart failure, but his wedge was wnl. He received 1L bolus with improvement of his blood pressure and reduction of his pressor requirement. PLAN: Admit to Cardiology, S2 Team Pager # [phone] #Inferior STEMI, LEYLA 149 - Resolving EKG [...] inferior STEMI s/p lytic therapy. Transferred to [facility] and underwent successful PCI of the RCA with MACARIO x3. Gretchen Yoon MD Pager [phone] documented in this encounter Procedure Notes Juventino [...] to the planned procedure. Hand Hygiene: The nutrition specialist did perform hand hygiene prior to arterial [...] a suspected line-associated infection. Location of Procedure: [facility] Risks and Benefits: The risks and benefits [...] to the planned procedure. Hand Hygiene: The nutrition specialist did perform hand hygiene prior to line [...] side:right An Introducer (PSI Kit) was used. [place]. Insertion Side: right. Insertion Site: internal jugular. Catheter Details: Number of Lumens: 1 Catheter Type: heparin-coated The line was placed over a guidewire. Confirmation of Venous Placement: Venous placement was confirmed by transducing the pressure. Introducer Insertion Attempts: 1 Comments: Floating the Ridgeway-Mo Catheter Attempts: 1 Comments: Sterile Dressing: Biopatch [...] better pt back in SR. Please page [phone] for any more cares or concerns Plan [...] complications include novel onset, paroxysmal atrial fibrillation [[id number]: 5]& L-sided diplopia with potential hemineglect for [...] Total Evaluation Minutes, Occupational Therapy: 10 Pager: [phone] FRANCINE Nuñez Occupational Therapy Rehabilitation Department Plan [...] complications include novel onset, paroxysmal atrial fibrillation [WKY7UD3XXZV: 5] & L-sided diplopia with potential hemineglect [...] hand rails). Baseline Mobility: Independent. Drives. Shares hay buckler with his , however her mobility is [...] plan as stated. Time IN / OUT: 7162-2422 Total Evaluation Minutes, Physical Therapy: 15(gtx1) Barbara Baldwin, PT Pager: [phone] Physical Therapy Inpatient Rehabilitation Department Plan of [...] he receives all he [facility] the [facility]. Consult refused. oRmain Tran, MSN, RN-, [facility] Tobacco Necktie Centralizing Machine Operator [facility] Pager #[phone] Plan of Care - Romain Oglesby OT [...] complications include novel onset, paroxysmal atrial fibrillation [IFH6YI8FILM: 5] & L-sided diplopia with potential hemineglect [...] and measurable assessment of functional outcome. Pager: [phone] ROMAIN OGLESBY OT 12/03/2019 Occupational Therapy Rehabilitation [...] in an outpatient cardiac rehabilitation program at [facility] was discussed. Patient agrees to a referral to this program. His has been a cardiac rehab patient at [facility] and he is familiar [...] complications include novel onset, paroxysmal atrial fibrillation [[id number]: 5] & L-sided diplopia with potential hemineglect [...] hand rails). Baseline Mobility: Independent. Drives. Shares hay buckler with his , however her mobility is [...] in this evaluation. Time IN / OUT: 4426-7433 Total Evaluation Minutes, Physical Therapy: 25(eval, gtx1) Barbara Baldwin, PT Pager: [phone] Physical Therapy Inpatient Rehabilitation Department Consult Note [...] 31.2 (L) 12/01/2019 Nutritional Intake Current bed: [facility] Assessment: Patient is with an area [...] Please contact JOHANNA NOBLES RN on pager [phone] or the wound care team at [phone] or pager [phone] skin and wound care concerns or questions. [...] Salinas would be surrogate decision maker per [place] surrogate decision making law. Any patient receiving carspousee at [facility] must abide by [place] law. The hierarchy for surrogate decisionmaking is: [...] (i) The agent with financial power of tax attorney or a conservator appointed in accordance [...] Insurance: N/A Prescription Coverage: Yes Preferred Pharmacy: [place], [place] Other: No Primary Care Provider: France Lam MD [phone] Patient/Caregiver Goals of Treatment: Return home Potential Needs for Transition of Care: Rehab/SNF: Based on discussions with the multi-disciplinary healthcare team, the patient would benefit from SNF level of care at discharge. ?? I have met with the patient to discuss discharge planning needs. I have provided the [facility], Officeof Care Management letter from the Cover Operator pertaining to rehab referrals. I have also provided a letter describing our affiliations within the [facility] and educated them about their [...] patient have requested referrals to: ?? 1. [facility] [address] [place] [id number] ?? [address] [place] [address] Note routed to Coagulation Operator who will communicate referrals to facilities and provide any required information. Home Health: If therapies recommend home w/ VNA, the patient has been provided a list of Home Health Agencies/DME vendors which serve their preferred geographic area. A letter describing our affiliations was reviewed with them and they were educated about their right to choose where referrals are placed. Patient requests referral to [facility] Major Aide. PHONE: [phone] FAX: [phone] Referral routed to the Coagulation Operator for matching with agency/vendor and to provide [...] Insured w/ Medicare. Gets medications filled at [facility] in [place], [place]. Son to transport at discharge Plan: Discharge dispo depending on patient's physical recovery; SNF vs home w/ VNA. A member of the Care Management team will continue to monitor progress, follow for continuity of care and assist with transition of care planning. Derian Pascual, NIURKA Pager: [phone] Plan of Care - Estefani Baeza RN [...] ??? Penicillins Pt doesn't remember reaction ??? Fwwbtvf-Jab-Vwv Reductase Inhibitors Stiff neck, upset stomach, back [...] noncontrast head CT and CT of the qawalangin of [place] at 1600 hrs. We will [...] vision concerning for stroke. Patient presented to [facility] in transfer for a STEMI after presenting [...] ??? Penicillins Pt doesn't remember reaction ??? Zvpznbx-Okt-Tic Reductase Inhibitors Stiff neck, upset stomach, back [...] file Gets together: Not on file Attends lutheran service: Not on file Active member of [...] L Elbow flexion 5/5 R, 5/5 L Skimmer Reverberatory LE: 5/5 R, 5/5 L Hip flexion [...] in one of the sensory modalities 2-Severe john-inattention or jonh-inattention to more than one modality [...] PGY3 Neurology Resident 11/30/2019 Vascular Neurology Pager [phone] Standard [facility] Swallow Screen: This screen is to be [...] diet as medical provider deems appropriate. Consider FLORICULTURIST consult for full evaluation and diet recommendations. [...] Afib admitted s/p thrombolysis and Cath-Stent to [facility] who developed R sided [...] hours. Evan Mejia MD Department of Neurology [facility] Brief Op Note - Gretchen Yoon MD - 11/29/2019 8:38 PM EDT Brief Operative Note Patient Name: Angel Luis Salinas : [id number] MR#: [id number] Case Date: 11/29/2019 Surgeon: Surgeon(s) and Role: * Gretchen Yoon MD - Primary * Aidan Ward MD - Fellow Preoperative diagnosis: Inferior STEMI Postoperative diagnosis: Inferior STEMI Procedure(s) (LRB): CARDIAC CATHETERIZATION (N/A) Findings: Discrete 90% stenosis in the prox-to-mid RCA. Severe diffuse disease in the distal vessel. Discrete LCX stenosis in a non-culprit artery. S/P DESx3 in the aunyppom-ux-axpzty RCA. Aspiration thrombectomy performed, and integrellin bolus [...] are i n the results section. CT RESIGHINI OF [place] W STAT 11/30/2019 4:36 Res [...] Potassium 3.9 3.5 - 5.0 [facility] mmol/L [facility] Comment: Please note: ??Patients with [...] Organization Address City/State/[place] [address] (ABNORMAL) Hemogram (12/08/2019 12:39 PM EDT) Analysis Performed At Patho logist Time Signature WBC 9.9 (H) 4.0 - 9.5 [facility] x[facility](3)/[facility] LABORATORY RBC 4.51 (L) 4.58 - [place] D[place] 5.54 [facility] x10(6)/[facility] LABORATORY Hemoglobin 13.0 (L) 13.7 - [place] 16.5 gm/dL [facility] Hematocrit 40.5 40.5 - [place] 48.5 % [facility] MCV 89.8 82.9 - [facility] DOV 93.1 [facility] LABORATORY MCH 28.8 27.5 - [place] 32.1 pg [facility] MCHC 32.1 32.0 - [place] 35.7 gm/dL [facility] Platelets 214 145 - 357 [facility] x10(3)/[facility] LABORATORY RDWSD 49.2 (H) 36.0 - [place] 45.0 [facility] LABORATORY RDWCV 15.1 (H) 11.4 - [place] 13.8 % [facility] MPV 12.1 7.6 - 12.9 [facility] nRBC % Auto 0.0 % [facility] nRBC Abs Auto 0.000 0.000 - [place] D[place] 0.000 [facility] x10(3)/[facility] LABORATORY Specimen Anatomical Collection Method Collection Time Receive d Time (Source) Location / / Volume Laterality Blood specimen 12/08/2019 12:39 0 (specimen) PM EDT 12:47 PM EDT Resulting Agency Comment Spec In Lab Gretchen Yoon MD HEMATOLOGY ORDERABLES Performing Organization Address City/State/ZIP Code Phon e Number [address] Hepatic Function Panel (12/08/2019 6:28 AM EDT) athologist Signature Total Protein 6.6 6.1 - 8.0 [facility] DOV gm/dL [facility] Albumin 3.2 3.2 - 5.2 [place] gm/dL [facility] AST 18 0 - 39 [place] unit/L [facility] ALT 13 0 - 55 [place] unit/L [facility] Alk Phos 64 40 - 130 [facility] DOV unit/L [facility] Total 0.4 0.2 - 1.3 [facility] Bilirubin mg/dL [facility] Bili, Direct 0.1 0.0 - 0.3 [facility] DOV mg/dL [facility] Specimen Anatomical Collection Method Collection Time Receive d Time (Source) Location / / Volume Laterality Blood specimen Venous Draw / 12/08/2019 6:28 AM 2019 6:36 (specimen) Unknown EDT AM EDT Resulting Agency Comment Spec In Lab Riki Stevens MD CHEMISTRY ORDERABLES Performing Organization Address City/[facility]/ZIP Code Phon e Number [address] (ABNORMAL) TSH (12/08/2019 6:28 AM EDT) athologist Signature TSH 5.27 (H) 0.27 - 4.20 [facility] DOV mcIU/mL [facility] Specimen Anatomical Collection Method Collection Time Receive d Time (Source) Location / / Volume Laterality Blood specimen Venous Draw / 12/08/2019 6:28 AM 2019 6:36 (specimen) Unknown EDT AM EDT Resulting Agency Comment Spec In Lab Darrell Glasgow MD CHEMISTRY ORDERABLES Performing Organization Address City/[facility]/ZIP Code Phon e Number [address] Potassium (12/08/2019 6:28 AM EDT) P athologist Signature Potassium 4.2 3.5 - 5.0 [facility] mmol/L [facility] Comment: Please note: ??Patients with [...] Organization Address City/State/ZIP Code Phon e Number [place] [id number] (ABNORMAL) Differential, Automated (12/08/2019 12:43 AM EDT) Patholo gist Method Time Signature Neutrophils % 60.7 % [facility] Neutr Abs (ANC) 6.81 (H) 1.70 - [facility] 6.10 [facility] x10(3)/[facility] LABORATORY Lymphocytes % 23.4 % [facility] Lymphocytes Abs 2.6 0.9 - 3.2 [facility] x10(3)/[facility] LABORATORY Monocytes % 10.0 % [facility] Monocyte Abs 1.1 (H) 0.3 - 0.9 [facility] x10(3)/[facility] LABORATORY Eosinophils % 3.7 % [facility] Eosinophils Abs 0.4 0.0 - 0.4 [facility] x10(3)/[facility] LABORATORY Basophils % 1.2 % [facility] Basophils Abs 0.1 0.0 - 0.1 [facility] x10(3)/[facility] LABORATORY Immature Gran % 1.00 % [facility] Comment: Immature granulocytes(IG's)percentage an d absolute count will include metamyelocytes, myelocytes, and promyelo cytes. Blood smears from CBCs yielding IG's will be scanned manually for concor dance. If this scan disagrees with the automated IG or if promyelocytes are not ed, a manual differential will be performed. [place] Gran Abs 0.11 (H) 0.00 - 0.04 x10(3)/[facility] LABORATORY Specimen Anatomical Collection Method Collection Time Receive d Time (Source) Location / / Volume Laterality Blood specimen 12/08/2019 12:43 0 (specimen) AM EDT 12:52 AM EDT Resulting Agency Comment Spec In Lab Riki Stevens MD HEMATOLOGY ORDERABLES Performing Organization Address City/State/[place] [address] (ABNORMAL) Hemogram (12/08/2019 12:43 AM EDT) Analysis Performed At Patho logist Time Signature WBC 11.2 (H) 4.0 - 9.5 [facility] x10(3)/[facility] LABORATORY RBC 4.46 (L) 4.58 - [facility] DOV 5.54 [facility] x10(6)/[facility] LABORATORY Hemoglobin 13.1 (L) 13.7 - [facility] 16.5 gm/dL [facility] Hematocrit 40.5 40.5 - [facility] DOV 48.5 % [facility] MCV 90.8 82.9 - [facility] 93.1 [facility] LABORATORY MCH 29.4 27.5 - [facility] DOV 32.1 pg [facility] MCHC 32.3 32.0 - [facility] DOV 35.7 gm/dL [facility] Platelets 215 145 - 357 [facility] x10(3)/[facility] LABORATORY RDWSD 49.8 (H) 36.0 - [facility] DOV 45.0 [facility] LABORATORY RDWCV 15.2 (H) 11.4 - [facility] DOV 13.8 % [facility] MPV 12.3 7.6 - 12.9 [facility] LABORATORY nRBC % Auto 0.0 % [facility] nRBC Abs Auto 0.000 0.000 - [facility] DOV 0.000 [facility] x10(3)/[facility] LABORATORY Specimen Anatomical Collection Method Collection Time Receive d Time (Source) Location / / Volume Laterality Blood specimen 12/08/2019 12:43 0 (specimen) AM EDT 12:52 AM EDT Resulting Agency Comment Spec In Lab Riki Stevens MD HEMATOLOGY ORDERABLES Performing Organization Address City/State/ZIP Code Phon e Number [address] Magnesium (12/08/2019 12:43 AM EDT) athologist Signature Magnesium 1.01 0.69 - 1.07 [facility] mmol/L [facility] Specimen Anatomical Collection Method Collection Time Receive d Time (Source) Location / / Volume Laterality Blood specimen 12/08/2019 12:43 0 (specimen) AM EDT 12:52 AM EDT Resulting Agency Comment Spec In Lab Gretchen Yoon MD CHEMISTRY ORDERABLES Performing Organization Address City/State/[place] [address] (ABNORMAL) BMP w/fasting Glucose (12/08/2019 12:43 AM EDT) P athologist Signature Glucose 106 (H) 65 - 99 [facility] Fasting mg/dL [facility] Comment: ?Fasting* Glucose Interpretive C [...] of Diabetes Mellitus, Position Statement from the [place] [employer]. ??Diabete s Care, Volume 33, Supplement 1, Jul 2009 BUN 14 10 - 20 mg/dL [facility] DOV [facility] Creatinine 1.16 0.80 - 1.50 mg/dL [facility] Sodium 134 (L) 135 - 145 mmol/L [facility] Potassium 4.0 3.5 - 5.0 mmol/L [facility] Comment: Please note: ??Patients with WBC >100,00 0 may have falsely elevated Potassium levels. ??For accurate Potassium quantif ication in these patients send serum separator tube (gold top) for subsequent determinations. ??Contact the Clinical Chemistry Laboratory if there are any qu estions. Chloride 99 98 - 107 mmol/L [facility] CO2 19 (L) 22 - 31 mmol/L [facility] Anion Gap 16 (H) 5 - 15 mmol/L [facility] Calcium 8.9 8.5 - 10.5 mg/dL [facility] Estimated GFR 62 >=60 mL/min/1.73 m?? [facility] Comment: The eGFR was calculated using the CKD-EP I equation. As with all creatinine based estimates of kidney function, eGFR values calculated with the CKD-EPI equation are not accurate in patients wi th acute kidney failure, extremes of body mass or the acutely ill. [email or web address] eGFR 72 >=60 mL/min/1.73 m?? [facility] Comment: The eGFR was calculated using the CKD-EP I equation. As with all creatinine based estimates of kidney function, eGFR values calculated with the CKD-EPI equation are not accurate in patients wi th acute kidney failure, extremes of body mass or the acutely ill. [email or web address] Specimen Anatomical Collection Method Collection Time Receive d Time (Source) Location / / Volume Laterality Blood specimen 12/08/2019 12:43 0 (specimen) AM EDT 12:52 AM EDT Resulting Agency Comment Spec In Lab Gretchen Yoon MD CHEMISTRY ORDERABLES Performing Organization Address City/State/ZIP Code Phon e Number [place] [id number] Heparin (unfractionated) Level (12/08/2019 12:43 AM EDT) athologist Signature Heparin UFH 0.60 IU/mL [facility]ORATORY Comment: Guidelines for therapeutic unfractionate [...] Organization Address City/State/[place] [address] Potassium (12/07/2019 8:39 PM EDT) athologist Signature Potassium 4.1 3.5 - 5.0 [facility] mmol/L [facility] LABOR[facility] Comment: Please note: ??Patients with [...] Organization Address City/State/ZIP Code Phon e Number [address] Potassium (12/07/2019 4:02 PM EDT) P athologist Signature Potassium 4.0 3.5 - 5.0 [facility] DOV mmol/L [facility] Comment: Please note: ??Patients with [...] Yoon MD CHEMISTRY ORDERABLES Performing Organization Address City/[facility]/[place]IP [place] [address] (ABNORMAL) Hemogram (12/07/2019 4:02 PM EDT) Analysis Performed At Patho logist Time Signature WBC 17.4 (H) 4.0 - 9.5 [place] DOV x10(3)/[facility] LABORATORY RBC 4.58 4.58 - [place] DOV 5.54 [facility] x10(6)/[facility] LABORATORY Hemoglobin 13.5 (L) 13.7 - [place] DOV 16.5 gm/dL [facility] Hematocrit 40.8 40.5 - [place] DOV 48.5 % [facility] MCV 89.1 82.9 - [place] DOV 93.1 [facility] LABORATORY MCH 29.5 27.5 - [place] DOV 32.1 pg [facility] MCHC 33.1 32.0 - [place] DOV 35.7 gm/dL [facility] Platelets 238 145 - 357 [place] DOV x10(3)/[facility] LABORATORY RDWSD 48.8 (H) 36.0 - [place] DOV 45.0 [facility] LABORATORY RDWCV 15.0 (H) 11.4 - [facility] DOV 13.8 % [facility] MPV 12.2 7.6 - 12.9 [place] DOV [facility] LABORATORY nRBC % Auto 0.0 % [facility] LABORATORY nRBC Abs Auto 0.000 0.000 - [place] MONAE 0.000 [facility] x10(3)/[facility] LABORATORY Specimen Anatomical Collection Method Collection Time Receive d Time (Source) Location / / Volume Laterality Blood specimen 12/07/2019 4:02 PM 020 4:08 (specimen) EDT PM EDT Resulting Agency Comment Spec In Lab Gretchen Yoon MD HEMATOLOGY ORDERABLES Performing Organization Address City/[facility]/ZIP [place] [address] EKG 12 Lead (12/07/2019 [...] (Bezet) Calculated P -12 degrees MUSE SYSTEM [place] Calculated R 10 degrees MUSE SYSTEM [place] Calculated T -138 degrees MUSE SYSTEM [place] INTERPRETATION Supraventricular tachycardia MUSE SYSTEM Low voltage [...] Potassium 4.2 3.5 - 5.0 [facility] mmol/L [facility] Comment: Please note: ??Patients with [...] Lagos MD CHEMISTRY ORDERABLES Performing Organization Address [facility] [place] [address] Heparin (unfractionated) Level (12/07/2019 11:43 AM EDT) athologist Signature Heparin UFH 0.59 IU/mL [facility] LABORATORY Comment: Guidelines for therapeutic unfractionate [...] Lagos MD HEMATOLOGY ORDERABLES Performing Organization Address [facility] [place] [address] Heparin (unfractionated) Level (12/07/2019 5:20 AM EDT) P athologist Signature Heparin UFH 0.53 IU/mL [facility] LABORATORY Comment: Guidelines for therapeutic unfractionate [...] Organization Address City/State/[place] [address] (ABNORMAL) Differential, Automated (12/07/2019 5:20 AM EDT) Patholo gist Method Time Signature Neutrophils % 62.4 % [facility] LABORATORY Neutr Abs (ANC) 5.46 1.70 - [facility] 6.10 [facility] x10(3)/[facility] LABORATORY Lymphocytes % 20.3 % [facility] LABORATORY Lymphocytes Abs 1.8 0.9 - 3.2 [facility] x10(3)/[facility] LABORATORY Monocytes % 11.0 % [facility] LABORATORY Monocyte Abs 1.0 (H) 0.3 - 0.9 [facility] x10(3)/[facility] LABORATORY Eosinophils % 4.5 % [facility] LABORATORY Eosinophils Abs 0.4 0.0 - 0.4 [facility] x10(3)/[facility] LABORATORY Basophils % 0.9 % [facility]OR[facility] Basophils Abs 0.1 0.0 - 0.1 [facility] x10(3)/[facility] LABORATORY Immature Gran % 0.90 % [facility] LABORATORY Comment: Immature granulocytes(IG's)percentage an d absolute count will include metamyelocytes, myelocytes, and promyelo cytes. Blood smears from CBCs yielding IG's will be scanned manually for concor dance. If this scan disagrees with the automated IG or if promyelocytes are not ed, a manual differential will be performed. Pita Gran Abs 0.08 (H) 0.00 - 0.04 x10(3)/[facility] LABORATORY Specimen Anatomical Collection Method Collection Time Receive d Time (Source) Location / / Volume Laterality Blood specimen 12/07/2019 5:20 AM 020 5:37 (specimen) EDT AM EDT Resulting Agency Comment Spec In Lab Riki Stevens MD HEMATOLOGY ORDERABLES Performing Organization Address City/State/[place] [address] (ABNORMAL) Hemogram (12/07/2019 5:20 AM EDT) Analysis Performed At Patho logist Time Signature WBC 8.7 4.0 - 9.5 [facility] x10(3)/[facility] LABORATORY RBC 4.20 (L) 4.58 - [facility] 5.54 [facility] x10(6)/[facility] LABORATORY Hemoglobin 12.3 (L) 13.7 - [facility] 16.[facility] gm/dL [facility] Hematocrit 37.4 (L) 40.5 - [facility] 48.5 % [facility] MCV 89.0 82.9 - [facility] 93.1 fL [facility] MCH 29.3 27.5 - [facility] 32.1 pg [facility] MCHC 32.9 32.0 - [place] MONAE 35.7 gm/dL [facility] Platelets 181 145 - 357 [place] MONAE x10(3)/[facility] LABORATORY RDWSD 47.7 (H) 36.0 - [place] MONAE 45.0 [facility] LABORATORY RDWCV 14.8 (H) 11.4 - [place] MONAE 13.8 % [facility] MPV 12.3 7.6 - 12.9 [place] DOV [facility] LABORATORY nRBC % Auto 0.0 % [facility] LABORATORY nRBC Abs Auto 0.000 0.000 - [place] MONAE 0.000 [facility] x10(3)/[facility] LABORATORY Specimen Anatomical Collection Method Collection Time Receive d Time (Source) Location / / Volume Laterality Blood specimen 12/07/2019 5:20 AM 020 5:37 (specimen) EDT AM EDT Resulting Agency Comment Spec In Lab Riki Stevens MD HEMATOLOGY ORDERABLES Performing Organization Address City/[facility]/ZIP Code Phon e Number [address] Magnesium (12/07/2019 5:20 AM EDT) P athologist Signature Magnesium 0.89 0.69 - 1.07 [facility]L [facility] Specimen Anatomical Collection Method Collection Time Receive d Time (Source) Location / / Volume Laterality Blood specimen 12/07/2019 5:20 AM 020 5:37 (specimen) EDT AM EDT Resulting Agency Comment Spec In Lab Gretchen Yoon MD CHEMISTRY ORDERABLES Performing Organization Address City/[facility]/ZIP Code Phon e Number [address] (ABNORMAL) BMP w/fasting Glucose (12/07/2019 5:20 AM EDT) P athologist Signature Glucose 100 (H) 65 - 99 [facility] Fasting mg/dL [facility] Comment: ?Fasting* Glucose Interpretive C [...] of Diabetes Mellitus, Position Statement from the [place] [employer]. ??Diabete s Care, Volume 33, Supplement 1, Jul 2009 BUN 14 10 - 20 mg/dL [facility] LABORATORY Creatinine 0.83 0.80 - 1.50 mg/dL [facility] LABORATORY Sodium 135 135 - 145 mmol/L [facility] LABORATORY Potassium 3.8 3.5 - 5.0 mmol/L [facility] Comment: Please note: ??Patients with WBC >100,00 0 may have falsely elevated Potassium levels. ??For accurate Potassium quantif ication in these patients send serum separator tube (gold top) for subsequent determinations. ??Contact the Clinical Chemistry Laboratory if there are any qu estions. Chloride 101 98 - 107 mmol/L [facility] CO2 20 (L) 22 - 31 mmol/L [facility] Anion Gap 14 5 - 15 mmol/L [facility]OR[facility]ORY Calcium 8.8 8.5 - 10.5 mg/dL [facility] LABOR[facility] Estimated GFR 87 >=60 mL/min/1.73 m?? [facility] Comment: The eGFR was calculated using the CKD-EP I equation. As with all creatinine based estimates of kidney function, eGFR values calculated with the CKD-EPI equation are not accurate in patients wi th acute kidney failure, extremes of body mass or the acutely ill. http://Inventergy/DHMCnkf eGFR 101 >=60 mL/min/1.73 m?? [facility] Comment: The eGFR was calculated using the CKD-EP I equation. As with all creatinine based estimates of kidney function, eGFR values calculated with the CKD-EPI equation are not accurate in patients wi th acute kidney failure, extremes of body mass or the acutely ill. [email or web address] Specimen Anatomical Collection Method Collection Time Receive d Time (Source) Location / / Volume Laterality Blood specimen 12/07/2019 5:20 AM 020 5:37 (specimen) EDT AM EDT Resulting Agency Comment Spec In Lab Gretchen Yoon MD CHEMISTRY ORDERABLES Performing Organization Address [facility] [place] [address] Heparin (unfractionated) Level (12/06/2019 10:14 PM EDT) athologist Signature Heparin UFH 0.29 IU/mL [facility] LABORATORY Comment: Guidelines for therapeutic unfractionate [...] Lagos MD HEMATOLOGY ORDERABLES Performing Organization Address [facility] [place] [address] Head wo Contrast [...] For questions regarding this report, please contact [facility] number below. ? Electronically signed by: Merari Collins [facility] ([phone]), at 12/06/2019 10:06 PM Narrative 12/06/2019 10:06 [...] Electronically signed by: Merari Collins [facility] ([phone]), at 12/06/2019 10:06 PM Paris Lagos MD IMG CT ORDERABLES (ABNORMAL) Hemogram (12/06/2019 4:20 PM EDT) Analysis Performed At Patho logist Time Signature WBC 10.4 (H) 4.0 - 9.5 [facility] x[facility](3[facility] LABORATORY RBC 4.32 (L) 4.58 - [facility] DOV 5.54 [facility] x10(6)/[facility] LABORATORY Hemoglobin 12.5 (L) 13.7 - [facility] 16.5 gm/dL [facility] Hematocrit 38.4 (L) 40.5 - [facility] 48.5 % [facility] MCV 88.9 82.9 - [facility] 93.1 [facility] LABORATORY MCH 28.9 27.5 - [facility] DOV 32.1 pg [facility] MCHC 32.6 32.0 - [facility] 35.7 gm/dL [facility] Platelets 194 145 - 357 [facility] x10(3)/[facility] LABORATORY RDWSD 46.9 (H) 36.0 - [facility] 45.0 [facility] LABORATORY RDWCV 14.6 (H) 11.4 - [facility] 13.8 % [facility] MPV 11.9 7.6 - 12.9 [facility] LABORATORY nRBC % Auto 0.0 % [facility] LABORATORY nRBC Abs Auto 0.000 0.000 - [facility] DOV 0.000 [facility] x10(3)/[facility] LABORATORY Specimen Anatomical Collection Method Collection Time Receive d Time (Source) Location / / Volume Laterality Blood specimen 12/06/2019 4:20 PM 020 4:31 (specimen) EDT PM EDT Resulting Agency Comment Spec In Lab Gretchen Yoon MD HEMATOLOGY ORDERABLES Performing Organization Address City/State/[place] [address] Heparin (unfractionated) Level (12/06/2019 4:20 PM EDT) P athologist Signature Heparin UFH 0.30 IU/mL [facility] LABORATORY Comment: Guidelines for therapeutic unfractionate [...] Organization Address City/State/[place] [address] Heparin (unfractionated) Level (12/06/2019 10:02 AM EDT) athologist Signature Heparin UFH <0.04 IU/mL [facility] LABORATORY Comment: Guidelines for therapeutic unfractionate [...] Lagos MD HEMATOLOGY ORDERABLES Performing Organization Address City/[facility]/ZIP Code Phon e Number [address] Magnesium (12/06/2019 3:36 AM EDT) P athologist Signature Magnesium 0.86 0.69 - 1.07 [facility] mmol/L [facility] Specimen Anatomical Collection Method Collection Time Receive d Time (Source) Location / / Volume Laterality Blood specimen 12/06/2019 3:36 AM 020 3:45 (specimen) EDT AM EDT Resulting Agency Comment Spec In Lab Gretchen Yoon MD CHEMISTRY ORDERABLES Performing Organization Address City/[facility]/ZIP Code Phon e Number [address] (ABNORMAL) BMP w/fasting Glucose (12/06/2019 3:36 AM EDT) P athologist Signature Glucose 103 (H) 65 - 99 [facility] Fasting mg/dL [facility] Comment: ?Fasting* Glucose Interpretive C [...] of Diabetes Mellitus, Position Statement from the [place] [employer]. ??Diabete s Care, Volume 33, Supplement 1, Jul 2009 BUN 20 10 - 20 mg/dL [facility] LABORATORY Creatinine 0.88 0.80 - 1.50 mg/dL [facility] LABORATORY Sodium 136 135 - 145 mmol/L [facility] Potassium 4.0 3.5 - 5.0 mmol/L [facility] Comment: Please note: ??Patients with WBC >100,00 0 may have falsely elevated Potassium levels. ??For accurate Potassium quantif ication in these patients send serum separator tube (gold top) for subsequent determinations. ??Contact the Clinical Chemistry Laboratory if there are any qu estions. Chloride 103 98 - 107 mmol/L [facility] CO2 19 (L) 22 - 31 mmol/L [facility] Anion Gap 14 5 - 15 mmol/L [facility] Calcium 8.7 8.5 - 10.5 mg/dL [facility] Estimated GFR 85 >=60 mL/min/1.73 m?? [facility] Comment: The eGFR was calculated using the CKD-EP I equation. As with all creatinine based estimates of kidney function, eGFR values calculated with the CKD-EPI equation are not accurate in patients wi th acute kidney failure, extremes of body mass or the acutely ill. http://Inventergy/MCnkf eGFR 99 >=60 mL/min/1.73 m?? [facility] Comment: The eGFR was calculated using the CKD-EP I equation. As with all creatinine based estimates of kidney function, eGFR values calculated with the CKD-EPI equation are not accurate in patients wi th acute kidney failure, extremes of body mass or the acutely ill. http://Inventergy/DHMCnkf Specimen Anatomical Collection Method Collection Time Receive d Time (Source) Location / / Volume Laterality Blood specimen 12/06/2019 3:36 AM 020 3:45 (specimen) EDT AM EDT Resulting Agency Comment Spec In Lab Gretchen Yoon MD CHEMISTRY ORDERABLES Performing Organization Address City/State/ZIP Code Phon e Number [address] (ABNORMAL) Hemogram (12/06/2019 3:36 AM EDT) Analysis Performed At Patho logist Time Signature WBC 9.2 4.0 - 9.5 [facility] x[facility](3[facility] LABORATORY RBC 3.99 (L) 4.58 - [place] DOV 5.54 [facility] x10(6)/[facility] LABORATORY Hemoglobin 11.9 (L) 13.7 - [facility] 16.5 gm/dL [facility] Hematocrit 35.5 (L) 40.5 - [facility] 48.5 % [facility] MCV 89.0 82.9 - [facility] 93.1 [facility] LABORATORY MCH 29.8 27.5 - [place] DOV 32.1 pg [facility] LABORATORY MCHC 33.5 32.0 - [place] DOV 35.7 gm/dL [facility] Platelets 164 145 - 357 [facility] x10(3)/[facility] LABORATORY RDWSD 47.6 (H) 36.0 - [place] DOV 45.0 [facility] LABORATORY RDWCV 14.7 (H) 11.4 - [facility] 13.8 % [facility] MPV 11.9 7.6 - 12.9 [facility] LABORATORY nRBC % Auto 0.0 % [facility] LABORATORY nRBC Abs Auto 0.000 0.000 - [facility] DOV 0.000 [facility] x10(3)/[facility] LABORATORY Specimen Anatomical Collection Method Collection Time Receive d Time (Source) Location / / Volume Laterality Blood specimen 12/06/2019 3:36 AM 020 3:45 (specimen) EDT AM EDT Resulting Agency Comment Spec In Lab Gretchen Yoon MD HEMATOLOGY ORDERABLES Performing Organization Address City/[facility]/ZIP Code Phon e Number [address] (ABNORMAL) Differential, Automated (12/05/2019 10:52 PM EDT) Patholo gist Method Time Signature Neutrophils % 61.9 % [facility] LABORATORY Neutr Abs (ANC) 6.02 1.70 - [facility] 6.10 [facility] x10(3)/[facility] LABORATORY Lymphocytes % 22.4 % [facility] LABORATORY Lymphocytes Abs 2.2 0.9 - 3.2 [facility] x10(3)/[facility] LABORATORY Monocytes % 10.4 % [facility]ORATORY Monocyte Abs 1.0 (H) 0.3 - 0.9 [facility] x10(3)/[facility] LABORATORY Eosinophils % 4.1 % [facility] LABORATORY Eosinophils Abs 0.4 0.0 - 0.4 [facility] x10(3)/[facility] LABORATORY Basophils % 0.7 % [facility]OR[facility]ORY Basophils Abs 0.1 0.0 - 0.1 [facility] x10(3)/[facility] LABORATORY Immature Gran % 0.50 % [facility]ORY Comment: Immature granulocytes(IG's)percentage an d absolute count will include metamyelocytes, myelocytes, and promyelo cytes. Blood smears from CBCs yielding IG's will be scanned manually for concor dance. If this scan disagrees with the automated IG or if promyelocytes are not ed, a manual differential will be performed. Pita Gran Abs 0.05 (H) 0.00 - 0.04 x10(3)/[facility] LABORATORY Specimen Anatomical Collection Method Collection Time Receive d Time (Source) Location / / Volume Laterality Blood specimen 12/05/2019 10:52 0 (specimen) PM EDT 10:59 PM EDT Resulting Agency Comment Spec In Lab Mandi Barrera MD HEMATOLOGY ORDERABLES Performing Organization Address City/State/Z[place] [address] (ABNORMAL) Hemogram (12/05/2019 10:52 PM EDT) Analysis Performed At [facility] logist Time Signature WBC 9.7 (H) 4.0 - 9.5 [facility] x10(3)/[facility] LABORATORY RBC 4.07 (L) 4.58 - [place] DOV 5.54 [facility] x10(6)/[facility] LABORATORY Hemoglobin 11.9 (L) 13.7 - [place] 16.5 gm/dL [facility]OR[facility] Hematocrit 36.4 (L) 40.5 - [place] 48.5 % [facility] MCV 89.4 82.9 - [facility] 93.1 [facility] LABORATORY MCH 29.2 27.5 - [place] DOV 32.1 pg [facility] LABORATORY MCHC 32.7 32.0 - [place] DOV 35.7 gm/dL [facility] Platelets 167 145 - 357 [facility] x10(3)/[facility] LABORATORY RDWSD 47.7 (H) 36.0 - [facility] 45.0 [facility] LABORATORY RDWCV 14.6 (H) 11.4 - [facility] 13.8 % [facility] MPV 12.1 7.6 - 12.9 [facility] LABORATORY nRBC % Auto 0.0 % [facility] LABORATORY nRBC Abs Auto 0.000 0.000 - [facility] 0.000 [facility] x10(3)/[facility] LABORATORY Specimen Anatomical Collection Method Collection Time Receive d Time (Source) Location / / Volume Laterality Blood specimen 12/05/2019 10:52 0 (specimen) PM EDT 10:59 PM EDT Resulting Agency Comment Spec In Lab Mandi Barrera MD HEMATOLOGY ORDERABLES Performing Organization Address City/State/Z[place] [address] Heparin (unfractionated) Level (12/05/2019 10:52 PM EDT) P athologist Signature Heparin UFH <0.04 IU/mL [facility] LABORATORY Comment: Guidelines for therapeutic unfractionate [...] Organization Address City/State/Z[place] [address] MRI Brain wwo Contrast [...] e number below. ? Electronically signed by: Merari Collins [facility] ([phone]), at 12/05/2019 10:02 PM Narrative 12/05/2019 10:02 PM EDT EXAMINATION: MRI [...] number below. Electronically signed by: ALBA Jenkins [facility] ([phone]), at 12/05/2019 10:02 PM Paris Lagos MD IMG MRI ORDERABLES (ABNORMAL) Hemogram (12/05/2019 1:00 PM EDT) Analysis Performed At Patho logist Time Signature WBC 8.7 4.0 - 9.5 [facility] x10(3)/[facility] LABORATORY RBC 4.17 (L) 4.58 - [facility] 5.54 [facility] x10(6)/[facility] LABORATORY Hemoglobin 12.4 (L) 13.7 - [facility] 16.5 gm/dL [facility] Hematocrit 37.0 (L) 40.5 - [facility] 48.5 % [facility] MCV 88.7 82.9 - [facility] 93.1 [facility] LABORATORY MCH 29.7 27.5 - [facility] 32.1 pg [facility] MCHC 33.5 32.0 - [facility] 35.7 gm/dL [facility] Platelets 173 145 - 357 [facility] x10(3)/[facility] LABORATORY RDWSD 47.3 (H) 36.0 - [facility] 45.0 [facility] LABORATORY RDWCV 14.6 (H) 11.4 - [facility] 13.8 % [facility] MPV 12.1 7.6 - 12.9 [facility] LABORATORY nRBC % Auto 0.0 % [facility] LABORATORY nRBC Abs Auto 0.000 0.000 - [facility] 0.000 [facility] x10(3)/[facility] LABORATORY Specimen Anatomical Collection Method Collection Time Receive d Time (Source) Location / / Volume Laterality Blood specimen 12/05/2019 1:00 PM 020 1:13 (specimen) EDT PM EDT Resulting Agency Comment Spec In Lab Gretchen Yoon MD HEMATOLOGY ORDERABLES Performing Organization Address City/State/Z[place] [address] EKG 12 Lead (12/05/2019 10:52 AM EDT) Component Value Ref Range Test Analysis Performed Pathologis t Method Time At Signature Ventricular rate 72 BPM MUSE SYSTEM Atrial Rate 72 BPM MUSE SYSTEM P-R Interval 138 ms MUSE SYSTEM QRS Duration 96 ms MUSE SYSTEM Q-T Interval 396 ms MUSE SYSTEM QTC Calculated 433 ms MUSE SYSTEM (Bezet) Calculated P [place] 65 degrees MUSE SYSTEM Calculated R [place] 13 degrees MUSE SYSTEM Calculated T [place] 0 degrees MUSE SYSTEM INTERPRETATION Sinus rhythm Occasional Premature ventricular complexe s MUSE SYSTEM Possible Inferior infarct (cited on or before 29-NOV-2019) Abnormal ECG When compared with ECG of 04-DEC-2019 10:43, Sinus rhythm has replaced Atrial fibrillation Vent. rate has decreased BY ??86 BPM Confirmed by MD Ceja Daniel ([id number]) on 12/05/2019 3:55:22 PM Specimen Anatomical Collection Method Collection Time Receive d Time (Source) Location / / Volume Laterality 12/05/2019 10:52 12/05/2019 3:55 AM EDT PM EDT Paris Lagos MD ECG ORDERABLES Performing Organization Address City/State/ZIP Code Phon e Number MUSE SYSTEM Duplex Study for DVT, Bilat legs (12/05/2019 7:00 AM EDT) Component Value Ref Test Analysis Performed At [facility] Range Method Time Signature VB Text Department: Vascular Surgery Lab VASCUBASE Report Patient: [id number] (ANGEL LUIS SALINAS) CPT: 58846 ICD10: I26.99 Referring Physician: GRETCHEN YOON ?? [...] Magnesium 0.87 0.69 - 1.07 [facility] mmol/L [facility] Specimen Anatomical Collection Method Collection Time Receive d Time (Source) Location / / Volume Laterality Blood specimen 12/05/2019 4:18 AM 020 4:31 (specimen) EDT AM EDT Resulting Agency Comment Spec In Lab Gretchen Yoon MD CHEMISTRY ORDERABLES Performing Organization Address City/[facility]/ZIP [facility] [place] [address] (ABNORMAL) BMP w/fasting Glucose (12/05/2019 4:18 AM EDT) P athologist Signature Glucose 104 (H) 65 - 99 [facility] Fasting mg/dL [facility] Comment: ?Fasting* Glucose Interpretive C [...] of Diabetes Mellitus, Position Statement from the [place] [employer]. ??Diabete s Care, Volume 33, Supplement 1, Jul 2009 BUN 21 (H) 10 - 20 mg/dL [facility] Creatinine 1.02 0.80 - 1.50 mg/dL [facility] Sodium 136 135 - 145 mmol/L [facility] Potassium 3.9 3.5 - 5.0 mmol/L [facility] Comment: Please note: ??Patients with WBC >100,00 0 may have falsely elevated Potassium levels. ??For accurate Potassium quantif ication in these patients send serum separator tube (gold top) for subsequent determinations. ??Contact the Clinical Chemistry Laboratory if there are any qu estions. Chloride 103 98 - 107 mmol/L [facility] CO2 21 (L) 22 - 31 mmol/L [facility] Anion Gap 12 5 - 15 mmol/L [facility] Calcium 8.8 8.5 - 10.5 mg/dL [facility] Estimated GFR 73 >=60 mL/min/1.73 m?? [facility] Comment: The eGFR was calculated using the CKD-EP I equation. As with all creatinine based estimates of kidney function, eGFR values calculated with the CKD-EPI equation are not accurate in patients wi th acute kidney failure, extremes of body mass or the acutely ill. http://Invent[employer]/[facility] [place]nk[place] eGFR 84 >=60 mL/min/1.73 m?? [facility] Comment: The eGFR was calculated using the CKD-EP I equation. As with all creatinine based estimates of kidney function, eGFR values calculated with the CKD-EPI equation are not accurate in patients wi th acute kidney failure, extremes of body mass or the acutely ill. http://Invent[employer]/[facility] [place] [place] Specimen Anatomical Collection Method Collection Time Receive d Time (Source) Location / / Volume Laterality Blood specimen 12/05/2019 4:18 AM 020 4:31 (specimen) EDT AM EDT Resulting Agency Comment Spec In Lab Gretchen Yoon MD CHEMISTRY ORDERABLES Performing Organization Address City/State/[place] [address] (ABNORMAL) Hemogram (12/05/2019 4:18 AM EDT) Analysis Performed At Patho logist Time Signature WBC 8.6 4.0 - 9.5 [facility] x10(3)/[facility] LABORATORY RBC 4.28 (L) 4.58 - [place] DOV 5.54 [facility] x10(6)/[facility] LABORATORY Hemoglobin 12.4 (L) 13.7 - [facility] 16.5 gm/dL [facility] Hematocrit 37.3 (L) 40.5 - [facility] 48.5 % [facility] MCV 87.1 82.9 - [facility] 93.1 [facility] LABORATORY MCH 29.0 27.5 - [facility] 32.1 pg [facility] MCHC 33.2 32.0 - [facility] 35.7 gm/dL [facility] Platelets 163 145 - 357 [facility] x10(3)/[facility] LABORATORY RDWSD 46.4 (H) 36.0 - [facility] 45.0 [facility] LABORATORY RDWCV 14.4 (H) 11.4 - [facility] 13.8 % [facility] MPV 11.7 7.6 - 12.9 [facility] LABORATORY nRBC % Auto 0.0 % [facility] nRBC Abs Auto 0.000 0.000 - [facility] 0.000 [facility] x10(3)/[facility] LABORATORY Specimen Anatomical Collection Method Collection Time Receive d Time (Source) Location / / Volume Laterality Blood specimen 12/05/2019 4:18 AM 020 4:31 (specimen) EDT AM EDT Resulting Agency Comment Spec In Lab Gretchen Yoon MD HEMATOLOGY ORDERABLES Performing Organization Address City/State/[place] [address] Cardiac for Morphology [...] For questions regarding this report, please contact [facility] number below. ? Electronically signed by: Roselyn Luciano, [facility] ([phone]), at 12/04/2019 6:16 PM Narrative 12/04/2019 6:16 [...] from neck/greatest puja meter to back wall: BOLIVIAN 91, CAU 13: ??19 mm CORTES ??1, [...] from neck/greatest puja meter to back wall: BOLIVIAN 91, CAU 13: 19 mm CORTES 1, [...] WBC 8.9 4.0 - 9.5 [facility] DOV x10(3)/[facility] LABORATORY RBC 4.69 4.58 - [place] DOV 5.54 [facility] x10(6)/[facility] LABORATORY Hemoglobin 13.5 (L) 13.7 - [place] DOV 16.5 gm/dL [facility] Hematocrit 41.7 40.5 - [place] DOV 48.5 % [facility] MCV 88.9 82.9 - [place] DOV 93.1 fL [facility] MCH 28.8 27.5 - [place] DOV 32.1 pg [facility] MCHC 32.4 32.0 - [place] DOV 35.7 gm/dL [facility] Platelets 196 145 - 357 [place] DOV x10(3)/[facility] LABORATORY RDWSD 46.7 (H) 36.0 - M[place] MONAE 45.0 [facility] LABORATORY RDWCV 14.5 (H) 11.4 - [facility] MONAE 13.8 % [facility] MPV 12.1 7.6 - 12.9 M[facility] MONAE [facility] LABORATORY nRBC % Auto 0.0 % [facility] nRBC Abs Auto 0.000 0.000 - [place] MONAE 0.000 [facility] x10(3)/[facility] LABORATORY Specimen Anatomical Collection Method Collection Time Receive d Time (Source) Location / / Volume Laterality Blood specimen 12/04/2019 12:55 0 1:06 (specimen) PM EDT PM EDT Resulting Agency Comment Spec In Lab Gretchen Yoon MD HEMATOLOGY ORDERABLES Performing Organization Address City/[facility]/ZIP [place] [address] EKG 12 Lead (12/04/2019 10:43 AM EDT) Component Value Ref Range Test Analysis Performed Pathologis t Method Time At Signature Ventricular rate 158 BPM MUSE SYSTEM Atrial Rate 102 BPM MUSE SYSTEM QRS Duration 92 ms MUSE SYSTEM Q-T Interval 294 ms MUSE SYSTEM QTC Calculated 476 ms MUSE SYSTEM (Bezet) Calculated R [place] 17 degrees MUSE SYSTEM Calculated T [place] 90 degrees MUSE SYSTEM INTERPRETATION Atrial fibrillation with rapid ventricular response MUSE SYSTEM Possible Inferior infarct (cited on or before 29-NOV-2019) Abnormal ECG When compared with ECG of 30-NOV-2019 21:07, Atrial fibrillation has replaced Sinus rhythm Vent. rate has increased BY ??65 BPM Confirmed by MD Brenna, Faustino ([id number]) on 12/05/2019 8:59:44 AM Specimen Anatomical Collection Method Collection Time Receive d Time (Source) Location / / Volume Laterality 12/04/2019 10:43 12/05/2019 8:59 AM EDT AM EDT Gretchen Yoon MD ECG ORDERABLES Performing Organization Address City/State/ZIP Code Phon e Number MUSE SYSTEM (ABNORMAL) Magnesium (12/04/2019 4:28 AM EDT) P athologist Signature Magnesium 1.17 (H) 0.69 - 1.07 [facility] mmol/L [facility] Specimen Anatomical Collection Method Collection Time Receive d Time (Source) Location / / Volume Laterality Blood specimen 12/04/2019 4:28 AM 020 4:40 (specimen) EDT AM EDT Resulting Agency Comment Spec In Lab Gretchen Yoon MD CHEMISTRY ORDERABLES Performing Organization Address City/State/ZIP [place] [address] (ABNORMAL) BMP w/fasting Glucose (12/04/2019 4:28 AM EDT) athologist Signature Glucose 108 (H) 65 - 99 [facility] Fasting mg/dL [facility] Comment: ?Fasting* Glucose Interpretive C [...] of Diabetes Mellitus, Position Statement from the [place] [employer]. ??Diabete s Care, Volume 33, Supplement 1, Jul 2009 BUN 19 10 - 20 mg/dL [facility] Creatinine 0.89 0.80 - 1.50 mg/dL [facility] Sodium 135 135 - 145 mmol/L [facility] Potassium 4.2 3.5 - 5.0 mmol/L [facility] Comment: Please note: ??Patients with WBC >100,00 0 may have falsely elevated Potassium levels. ??For accurate Potassium quantif ication in these patients send serum separator tube (gold top) for subsequent determinations. ??Contact the Clinical Chemistry Laboratory if there are any qu estions. Chloride 104 98 - 107 mmol/L [facility] CO2 19 (L) 22 - 31 mmol/L [facility] Anion Gap 12 5 - 15 mmol/L [facility] Calcium 8.5 8.5 - 10.5 mg/dL [facility] Estimated GFR 85 >=60 mL/min/1.73 m?? [facility] Comment: The eGFR was calculated using the CKD-EP I equation. As with all creatinine based estimates of kidney function, eGFR values calculated with the CKD-EPI equation are not accurate in patients wi th acute kidney failure, extremes of body mass or the acutely ill. http://In[employer]/[facility] [place] [place]nkf eGFR 98 >=60 mL/min/1.73 m?? [facility] Comment: The eGFR was calculated using the CKD-EP I equation. As with all creatinine based estimates of kidney function, eGFR values calculated with the CKD-EPI equation are not accurate in patients wi th acute kidney failure, extremes of body mass or the acutely ill. http://In[employer]/[facility] [place] [place]f Specimen Anatomical Collection Method Collection Time Receive d Time (Source) Location / / Volume Laterality Blood specimen 12/04/2019 4:28 AM 020 4:40 (specimen) EDT AM EDT Resulting Agency Comment Spec In Lab Gretchen Yoon MD CHEMISTRY ORDERABLES Performing Organization Address City/State/Z[place] [address] (ABNORMAL) Hemogram (12/04/2019 4:28 AM EDT) Analysis Performed At Patho logist Time Signature WBC 7.8 4.0 - 9.5 [facility] x10(3)/[facility] LABORATORY RBC 4.10 (L) 4.58 - [facility] 5.54 [facility] x10(6)/[facility] LABORATORY Hemoglobin 12.0 (L) 13.7 - [facility] 16.5 gm/dL [facility] Hematocrit 36.5 (L) 40.5 - [facility] 48.5 % [facility] MCV 89.0 82.9 - [facility] 93.1 fL [facility] MCH 29.3 27.5 - M[place] MONAE 32.1 pg [facility] MCHC 32.9 32.0 - [facility] MONAE 35.7 gm/dL [facility] Platelets 151 145 - 357 MELINA VILLANUEVACK x10(3)/[facility] LABORATORY RDWSD 46.9 (H) 36.0 - [place] MONAE 45.0 [facility] LABORATORY RDWCV 14.4 (H) 11.4 - [place] MONAE 13.8 % [facility] MPV 12.2 7.6 - 12.9 [facility] MONAE fL [facility] nRBC % Auto 0.0 % [facility] nRBC Abs Auto 0.000 0.000 - [place] MONAE 0.000 [facility] x10(3)/[facility] LABORATORY Specimen Anatomical Collection Method Collection Time Receive d Time (Source) Location / / Volume Laterality Blood specimen 12/04/2019 4:28 AM 020 4:40 (specimen) EDT AM EDT Resulting Agency Comment Spec In Lab Gretchen Yoon MD HEMATOLOGY ORDERABLES Performing Organization Address City/[facility]/ZIP Code Phon e Number [address] Potassium (12/03/2019 7:55 PM EDT) athologist Signature Potassium 3.9 3.5 - 5.0 [facility]/L [facility] Comment: Please note: ??Patients with [...] Yoon MD CHEMISTRY ORDERABLES Performing Organization Address City/[facility]/ZIP [facility] Phon e Number [address] Potassium (12/03/2019 1:57 PM EDT) athologist Signature Potassium 3.7 3.5 - 5.0 [facility] mmol/L [facility] Comment: Please note: ??Patients with [...] Organization Address City/State/Z[place] [address] (ABNORMAL) Hemogram (12/03/2019 1:57 PM EDT) Analysis Performed At Patho logist Time Signature WBC 8.8 4.0 - 9.5 [facility] DOV x10(3)/[facility] LABORATORY RBC 4.27 (L) 4.58 - [place] DOV 5.54 [facility] x10(6)/[facility] LABORATORY Hemoglobin 12.5 (L) 13.7 - [place] DOV 16.5 gm/dL [facility] Hematocrit 37.5 (L) 40.5 - [facility] DOV 48.5 % [facility] MCV 87.8 82.9 - [place] DOV 93.1 [facility] LABORATORY MCH 29.3 27.5 - [place] DOV 32.1 pg [facility] MCHC 33.3 32.0 - [place] DOV 35.7 gm/dL [facility] Platelets 158 145 - 357 [facility] DOV x10(3)/[facility] LABORATORY RDWSD 46.9 (H) 36.0 - [place] DOV 45.0 [facility] LABORATORY RDWCV 14.5 (H) 11.4 - [place] DOV 13.8 % [facility] MPV 12.2 7.6 - 12.9 [place] DOV [facility] LABORATORY nRBC % Auto 0.0 % [facility] nRBC Abs Auto 0.000 0.000 - [facility] 0.000 [facility] x10(3)/[facility] LABORATORY Specimen Anatomical Collection Method Collection Time Receive d Time (Source) Location / / Volume Laterality Blood specimen 12/03/2019 1:57 PM 020 2:21 (specimen) EDT PM EDT Resulting Agency Comment Spec In Lab Gretchen Yoon MD HEMATOLOGY ORDERABLES Performing Organization Address City/State/ZIP Code Phon e Number [address] Magnesium (12/03/2019 4:02 AM EDT) P athologist Signature Magnesium 0.79 0.69 - 1.07 [facility] mmol/L [facility] Specimen Anatomical Collection Method Collection Time Receive d Time (Source) Location / / Volume Laterality Blood specimen 12/03/2019 4:02 AM 020 4:16 (specimen) EDT AM EDT Resulting Agency Comment Spec In Lab Gretchen Yoon MD CHEMISTRY ORDERABLES Performing Organization Address City/State/ZIP [place] [address] (ABNORMAL) BMP w/fasting Glucose (12/03/2019 4:02 AM EDT) P athologist Signature Glucose 100 (H) 65 - 99 [facility] Fasting mg/dL [facility] Comment: ?Fasting* Glucose Interpretive C [...] of Diabetes Mellitus, Position Statement from the [place] [employer]. ??Diabete s Care, Volume 33, Supplement 1, Jul 2009 BUN 17 10 - 20 mg/dL [facility] Creatinine 0.95 0.80 - 1.50 mg/dL [facility] Sodium 136 135 - 145 mmol/L [facility] Potassium 3.4 (L) 3.5 - 5.0 mmol/L [facility] Comment: Please note: ??Patients with WBC >100,00 0 may have falsely elevated Potassium levels. ??For accurate Potassium quantif ication in these patients send serum separator tube (gold top) for subsequent determinations. ??Contact the Clinical Chemistry Laboratory if there are any qu estions. Chloride 103 98 - 107 mmol/L [facility] CO2 18 (L) 22 - 31 mmol/L [facility] Anion Gap 15 5 - 15 mmol/L [facility] Calcium 8.3 (L) 8.5 - 10.5 mg/dL [facility] Estimated GFR 79 >=60 mL/min/1.73 m?? [facility] Comment: The eGFR was calculated using the CKD-EP I equation. As with all creatinine based estimates of kidney function, eGFR values calculated with the CKD-EPI equation are not accurate in patients wi th acute kidney failure, extremes of body mass or the acutely ill. http://In[employer]/[facility] eGFR 92 >=60 mL/min/1.73 m?? [facility] Comment: The eGFR was calculated using the CKD-EP I equation. As with all creatinine based estimates of kidney function, eGFR values calculated with the CKD-EPI equation are not accurate in patients wi th acute kidney failure, extremes of body mass or the acutely ill. [email or web address] Specimen Anatomical Collection Method Collection Time Receive d Time (Source) Location / / Volume Laterality Blood specimen 12/03/2019 4:02 AM 020 4:16 (specimen) EDT AM EDT Resulting Agency Comment Spec In Lab Gretchen Yoon MD CHEMISTRY ORDERABLES Performing Organization Address City/State/Z[place] [address] (ABNORMAL) Hemogram (12/03/2019 4:02 AM EDT) Analysis Performed At Patho logist Time Signature WBC 9.1 4.0 - 9.5 [facility] x10(3)/[facility] LABORATORY RBC 4.01 (L) 4.58 - M[place] MARSHDOV 5.54 [facility] x10(6)/[facility] LABORATORY Hemoglobin 11.8 (L) 13.7 - [facility] 16.5 gm/dL [facility] Hematocrit 35.6 (L) 40.5 - [facility] 48.5 % [facility] MCV 88.8 82.9 - [facility] 93.1 [facility] LABORATORY MCH 29.4 27.5 - [facility] 32.1 pg [facility] MCHC 33.1 32.0 - [facility] 35.7 gm/dL [facility] Platelets 130 (L) 145 - 357 [facility] x10(3)/[facility] LABORATORY RDWSD 46.6 (H) 36.0 - [facility] 45.0 [facility] LABORATORY RDWCV 14.4 (H) 11.4 - [facility] 13.8 % [facility] MPV 12.4 7.6 - 12.9 [facility] LABORATORY nRBC % Auto 0.0 % [facility] nRBC Abs Auto 0.000 0.000 - [facility] 0.000 [facility] x10(3)/[facility] LABORATORY Specimen Anatomical Collection Method Collection Time Receive d Time (Source) Location / / Volume Laterality Blood specimen 12/03/2019 4:02 AM 020 4:16 (specimen) EDT AM EDT Resulting Agency Comment Spec In Lab Gretchen Yoon MD HEMATOLOGY ORDERABLES Performing Organization Address City/State/[place] [address] XR Chest One View [...] e number below. ? Electronically signed by: Ashly Marley [facility] ([phone]), at 12/02/2019 1:35 PM Narrative 12/02/2019 1:35 PM EDT EXAMINATION: XR [...] contact e number below. Electronically signed by: Ashly Marley [facility] ([phone]), at 12/02/2019 1:35 PM Gretchen Yoon MD IMG DX ORDERABLES (ABNORMAL) Hemogram (12/02/2019 12:50 PM EDT) Analysis Performed At Patho logist Time Signature WBC 10.6 (H) 4.0 - 9.5 [facility](3[facility] LABORATORY RBC 4.00 (L) 4.58 - [facility] DOV 5.54 [facility] x10(6)/[facility] LABORATORY Hemoglobin 11.9 (L) 13.7 - [facility] 16.5 gm/dL [facility] Hematocrit 35.7 (L) 40.5 - [facility] 48.5 % [facility] MCV 89.3 82.9 - [facility] 93.1 [facility] LABORATORY MCH 29.8 27.5 - [facility] 32.1 pg [facility] MCHC 33.3 32.0 - [facility] 35.7 gm/dL [facility] Platelets 120 (L) 145 - 357 [facility] x10(3)/[facility] LABORATORY RDWSD 47.5 (H) 36.0 - [facility] 45.0 [facility] LABORATORY RDWCV 14.6 (H) 11.4 - [facility] 13.8 % [facility] MPV 12.0 7.6 - 12.9 [facility] LABORATORY nRBC % Auto 0.0 % [facility] nRBC Abs Auto 0.000 0.000 - [facility] 0.000 [facility] x10(3)/[facility] LABORATORY Specimen Anatomical Collection Method Collection Time Receive d Time (Source) Location / / Volume Laterality Blood specimen 12/02/2019 12:50 0 1:22 (specimen) PM EDT PM EDT Resulting Agency Comment Spec In Lab Gretchen Yoon MD HEMATOLOGY ORDERABLES Performing Organization Address City/State/[place] [address] Blue Tube HOLD (12/02/2019 4:55 AM EDT) P athologist Signature Blue Hold Sample in [facility] lab. [facility] Specimen Anatomical Collection Method Collection Time Receive d Time (Source) Location / / Volume Laterality Blood specimen Venous Draw / 12/02/2019 4:55 AM 2019 5:03 (specimen) Unknown EDT AM EDT Darrell Glasgow MD HEMATOLOGY ORDERABLES Performing Organization Address City/State/ZIP Code Phon e Number [address] Magnesium (12/02/2019 4:55 AM EDT) athologist Signature Magnesium 0.85 0.69 - 1.07 [facility] mmol/L [facility] Specimen Anatomical Collection Method Collection Time Receive d Time (Source) Location / / Volume Laterality Blood specimen 12/02/2019 4:55 AM 020 5:02 (specimen) EDT AM EDT Resulting Agency Comment Spec In Lab Gretchen Yoon MD CHEMISTRY ORDERABLES Performing Organization Address City/State/Z[place] [address] (ABNORMAL) BMP w/fasting Glucose (12/02/2019 4:55 AM EDT) athologist Signature Glucose 114 (H) 65 - 99 [facility] Fasting mg/dL [facility] Comment: ?Fasting* Glucose Interpretive C [...] of Diabetes Mellitus, Position Statement from the [place] [employer]. ??Diabete s Care, Volume 33, Supplement 1, Jul 2009 BUN 13 10 - 20 mg/dL [facility] Creatinine 0.93 0.80 - 1.50 mg/dL [facility] Sodium 135 135 - 145 mmol/L [facility] Potassium 3.7 3.5 - 5.0 mmol/L [facility] Comment: Please note: ??Patients with WBC >100,00 0 may have falsely elevated Potassium levels. ??For accurate Potassium quantif ication in these patients send serum separator tube (gold top) for subsequent determinations. ??Contact the Clinical Chemistry Laboratory if there are any qu estions. Chloride 105 98 - 107 mmol/L [facility] CO2 18 (L) 22 - 31 mmol/L [facility] Anion Gap 12 5 - 15 mmol/L [facility] Calcium 8.1 (L) 8.5 - 10.5 mg/dL [facility] Estimated GFR 81 >=60 mL/min/1.73 m?? [facility] Comment: The eGFR was calculated using the CKD-EP I equation. As with all creatinine based estimates of kidney function, eGFR values calculated with the CKD-EPI equation are not accurate in patients wi th acute kidney failure, extremes of body mass or the acutely ill. [email or web address]://Invent[employer]/[facility]nk[facility] eGFR 94 >=60 mL/min/1.73 m?? [facility] Comment: The eGFR was calculated using the CKD-EP I equation. As with all creatinine based estimates of kidney function, eGFR values calculated with the CKD-EPI equation are not accurate in patients wi th acute kidney failure, extremes of body mass or the acutely ill. [email or web address] Specimen Anatomical Collection Method Collection Time Receive d Time (Source) Location / / Volume Laterality Blood specimen 12/02/2019 4:55 AM 020 5:02 (specimen) EDT AM EDT Resulting Agency Comment Spec In Lab Gretchen Yoon MD CHEMISTRY ORDERABLES Performing Organization Address City/State/Z[place] [address] (ABNORMAL) Hemogram (12/02/2019 4:55 AM EDT) Analysis Performed At Patho logist Time Signature WBC 9.3 4.0 - 9.5 [facility] LABORATORY RBC 3.71 (L) 4.58 - [facility] DOV 5.54 [facility] x10(6)/[facility] LABORATORY Hemoglobin 10.8 (L) 13.7 - [facility] 16.5 gm/dL [facility] Hematocrit 33.1 (L) 40.5 - [facility] 48.5 % [facility] MCV 89.2 82.9 - [facility] 93.1 [facility] LABORATORY MCH 29.1 27.5 - [facility] 32.1 pg [facility] MCHC 32.6 32.0 - [facility] 35.7 gm/dL [facility] Platelets 93 (L) 145 - 357 [facility] x10(3)/[facility] LABORATORY RDWSD 47.1 (H) 36.0 - [facility] 45.0 [facility] LABORATORY RDWCV 14.6 (H) 11.4 - [facility] 13.8 % [facility] MPV 11.7 7.6 - 12.9 [facility] LABORATORY nRBC % Auto 0.0 % [facility] nRBC Abs Auto 0.000 0.000 - [facility] 0[facility]000 [facility] x10(3)/[facility] LABORATORY Specimen Anatomical Collection Method Collection Time Receive d Time (Source) Location / / Volume Laterality Blood specimen 12/02/2019 4:55 AM 020 5:02 (specimen) EDT AM EDT Resulting Agency Comment Spec In Lab Gretchen Yoon MD HEMATOLOGY ORDERABLES Performing Organization Address City/State/[place] [address] Transfuse 1 unit platelets, [...] For questions regarding this report, please contact [facility] number below. ? Electronically signed by: Angel Luis Barboza MD, [facility] ([phone]), at 12/01/2019 8:02 PM Narrative 12/01/2019 8:02 [...] For questions regarding this report, please contact [facility] number below. Electronically signed by: Angel Luis Barboza MD, [facility] ([phone]), at 12/01/2019 8:02 PM Gretchen Yoon MD IMG MRI ORDERABLES Prepare Platelets, Apheresis (12/01/2019 6:20 PM EDT) P athologist Signature Dispensed? Yes [facility] Specimen Anatomical Collection Method Collection Time Receive d Time (Source) Location / / Volume Laterality Blood specimen 12/01/2019 6:20 PM 020 6:18 (specimen) EDT PM EDT Gretchen Yoon MD BLOOD BANK ORDERABLES Performing Organization Address City/[facility]/[place] [address] Duplex for DVT, Arm, Unilat (12/01/2019 5:08 PM EDT) Component Value Ref Test Analysis Performed At Patholo gist Range Method Time Signature VB Text Department: Vascular Surgery Lab VASCUBASE Report Patient: [id number] (ANGEL LUIS SALINAS) CPT: 80321 ICD10: R60.0 Referring Physician: GRETCHEN YOON ?? [...] For questions regarding this report, please contact [facility] number below. ? Electronically signed by: Merari Collins, [facility] ([phone]), at 12/01/2019 3:53 PM Narrative 12/01/2019 3:53 PM EDT EXAMINATION: CT HEAD WO CONTRAST (GENERIC) CLINICAL HISTORY: Headache, intracranial hemorrhage suspected Serial CT scan: please assess for propag ation of known ICH noted on prior Head CT/imaging. TECHNIQUE: CT head performed without intravenous co ntrast administration. COMPARISON: Head CT 11/30/2019. CT angiogram of the [place] 11/01. FINDINGS: Ventricles are normal in size. Basal cis terns are patent. Unchanged hyperdense 2.3 x 0.7 x 0.6 cm tubular hemorrhage projecting along the course of the left optic tract (axial se [facility] 2 image 16), consistent with intraparenchymal [...] Head CT 11/30/2019. CT angiogram of the [place] 11/01. FINDINGS: Ventricles are normal in size. Basal cis terns are patent. Unchanged hyperdense 2.3 x 0.7 x 0.6 cm tubular hemorrhage projecting along the course of the left optic tract (axial se jhnoathan 2 image 16), consistent with intraparenchymal hematoma. [...] Scan, Peripheral Blood (12/01/2019 12:51 PM EDT) [facility] Method Time Signature Plat Estimate Decreased [facility] RBC Morphology Normal [facility] Giant Less than 1 /HPF [facility] Platelets [facility] Specimen Anatomical Collection Method Collection Time Receive d Time (Source) Location / / Volume Laterality Blood specimen 12/01/2019 12:51 0 1:05 (specimen) PM EDT PM EDT Resulting Agency Comment Spec In Lab Riki Stevens MD HEMATOLOGY ORDERABLES Performing Organization Address City/State/[place] [address] (ABNORMAL) Differential, Automated (12/01/2019 12:51 PM EDT) [facility] Method Time Signature Neutrophils % 74.9 % [facility] Neutr Abs (ANC) 6.34 (H) 1.70 - [facility] 6.10 [facility] x10(3)/[facility] LABORATORY Lymphocytes % 11.4 % [facility] Lymphocytes Abs 1.0 0.9 - 3.2 [facility] x10(3)/[facility] LABORATORY Monocytes % 12.4 % [facility] Monocyte Abs 1.0 (H) 0.3 - 0.9 [facility] x10(3)/[facility] LABORATORY Eosinophils % 0.4 % [facility] Eosinophils Abs 0.0 0.0 - 0.4 [facility] x10(3)/[facility] LABORATORY Basophils % 0.4 % [facility] Basophils Abs 0.0 0.0 - 0.1 [facility] x10(3)/[facility] LABORATORY Immature Gran % 0.50 % [facility] Comment: Immature granulocytes(IG's)percentage an d absolute count will include metamyelocytes, myelocytes, and promyelo cytes. Blood smears from CBCs yielding IG's will be scanned manually for ana nagy. If this scan disagrees with the automated IG or if promyelocytes are not ed, a manual differential will be performed. Pita Gran Abs 0.04 0.00 - 0.04 x10(3)/[facility] LABORATORY Specimen Anatomical Collection Method Collection Time Receive d Time (Source) Location / / Volume Laterality Blood specimen 12/01/2019 12:51 0 1:05 (specimen) PM EDT PM EDT Resulting Agency Comment Spec In Lab Riki Stevens MD HEMATOLOGY ORDERABLES Performing Organization Address City/State/ZIP Code Phon e Number [place] [id number] HOSPITAL LABORATORY Drive (ABNORMAL) Hemogram (12/01/2019 12:51 PM EDT) Analysis Performed At Patho logist Time Signature WBC 8.4 4.0 - 9.5 [facility] x[facility](3[facility] LABORATORY RBC 3.69 (L) 4.58 - [facility] 5.54 [facility] x10(6)/[facility] LABORATORY Hemoglobin 10.8 (L) 13.7 - [facility] 16.5 gm/dL [facility] Hematocrit 32.4 (L) 40.5 - [facility] 48.5 % [facility] MCV 87.8 82.9 - [facility] 93.1 [facility] LABORATORY MCH 29.3 27.5 - [place] DOV 32.1 pg [facility] MCHC 33.3 32.0 - [facility] DOV 35.7 gm/dL [facility] Platelets 72 (L) 145 - 357 [facility](3[facility] LABORATORY RDWSD 47.2 (H) 36.0 - [facility] 45.0 [facility] LABORATORY RDWCV 14.6 (H) 11.4 - [facility] DOV 13.8 % [facility] MPV 12.2 7.6 - 12.9 [facility] LABORATORY nRBC % Auto 0.0 % [facility] nRBC Abs Auto 0.000 0.000 - [facility] 0.000 [facility] x10(3)/[facility] LABORATORY Specimen Anatomical Collection Method Collection Time Receive d Time (Source) Location / / Volume Laterality Blood specimen 12/01/2019 12:51 0 1:05 (specimen) PM EDT PM EDT Resulting Agency Comment Spec In Lab Riki Stevens MD HEMATOLOGY ORDERABLES Performing Organization Address City/State/ZIP Code Phon e Number [address] (ABNORMAL) Coox2 (12/01/2019 11:42 AM EDT) Analysis Performed At Patho logist Time Signature pO2 Coox [address] [facility] Hgb Blood Gas 11.6 (L) 13.7 - [facility] 16.5 gm/dL [facility] O2HB Coox 60.8 % [facility] COHB Coox 0.6 % [facility] Comment: Nonsmokers: 0.5-1.5% COHB Smokers: Variable, but usually less than 10% Toxic: 20-30% COHB Lethal: Greater than 60% COHB METHB Coox 0.6 <=1.5 % [facility] Source Coox Mixed Venous [facility] Specimen Anatomical Collection Method Collection Time Receive d Time (Source) Location / / Volume Laterality Blood specimen 12/01/2019 11:42 0 (specimen) AM EDT 11:42 AM EDT Gretchen Yoon MD CHEMISTRY ORDERABLES Performing Organization Address City/State/[place] [address] Sedimentation rate (12/01/2019 3:55 AM EDT) P athologist Signature Sed Rate 25 3 - 46 [facility] mm/hr [facility] Comment: Effective June 11, 2019 [...] Winn MD HEMATOLOGY ORDERABLES Performing Organization Address City/[facility]/[place] [address] (ABNORMAL) CRP, acute inflammation (12/01/2019 3:55 AM EDT) P athologist Signature CRP 92.5 (H) <=4.9 mg/L [facility] Specimen Anatomical Collection Method Collection Time Receive d Time (Source) Location / / Volume Laterality Blood specimen Venous Draw / 12/01/2019 3:55 AM 2019 4:06 (specimen) Unknown EDT AM EDT Resulting Agency Comment Spec In Lab Rossy Winn MD CHEMISTRY ORDERABLES Performing Organization Address City/[facility]/ZIP Code Phon e Number [address] ABORH Recheck Status (12/01/2019 3:55 AM EDT) [facility] Method Time Signature ABORH Recheck Order Placed [facility] LABORATORY ABORH Type Complete [facility] LABORATORY Specimen Anatomical Collection Method Collection Time Receive d Time (Source) Location / / Volume Laterality Blood specimen 12/01/2019 3:55 AM 020 4:15 (specimen) EDT AM EDT Resulting Agency Comment Spec In Lab Lewis Gee MD BLOOD BANK ORDERABLES Performing Organization Address City/[facility]/[place] [address] Antibody screen (12/01/2019 3:55 AM EDT) Patholo gist Method Time Signature Ab Screen Negative [facility] LABORATORY Expires at 12/04/2019 [facility] [id number] on: [facility] Specimen Anatomical Collection Method Collection Time Receive d Time (Source) Location / / Volume Laterality Blood specimen 12/01/2019 3:55 AM 020 4:15 (specimen) EDT AM EDT Resulting Agency Comment Spec In Lab Lewis Gee MD BLOOD BANK ORDERABLES Performing Organization Address City/State/[place] [address] ABO/Rh Typing (12/01/2019 3:55 AM EDT) athologist Signature ABORh Type AB Pos [facility] Specimen Anatomical Collection Method Collection Time Receive d Time (Source) Location / / Volume Laterality Blood specimen 12/01/2019 3:55 AM 020 4:15 (specimen) EDT AM EDT Resulting Agency Comment Spec In Lab Lewis Gee MD BLOOD BANK ORDERABLES Performing Organization Address City/[facility] [place] [address] (ABNORMAL) Troponin (12/01/2019 3:55 AM EDT) athologist Signature Troponin-T 4.35 (H) 0.00 - [facility] 0.00 ng/mL [facility] Comment: result rechecked-slw The 99th [...] additional sample may be indicated. Reference: Third [place] Definition of Myocardial Infarction. Journal of the [place] [employer] 2012;60:1581-98 Specimen Anatomical Collection Method Collection Time Receive d Time (Source) Location / / Volume Laterality Blood specimen 12/01/2019 3:55 AM 020 4:00 (specimen) EDT AM EDT Resulting Agency Comment Spec In Lab Gretchen Yoon MD CHEMISTRY ORDERABLES Performing Organization Address City/State/ZIP Code Phon e Number [address] Magnesium (12/01/2019 3:55 AM EDT) P athologist Signature Magnesium 0.96 0.69 - 1.07 [facility] mmol/L [facility] Specimen Anatomical Collection Method Collection Time Receive d Time (Source) Location / / Volume Laterality Blood specimen 12/01/2019 3:55 AM 020 4:00 (specimen) EDT AM EDT Resulting Agency Comment Spec In Lab Gretchen Yoon MD CHEMISTRY ORDERABLES Performing Organization Address City/[facility]/Z[place] [address] (ABNORMAL) BMP w/fasting Glucose (12/01/2019 3:55 AM EDT) P athologist Signature Glucose 148 (H) 65 - 99 [facility] Fasting mg/dL [facility] Comment: ?Fasting* Glucose Interpretive C [...] of Diabetes Mellitus, Position Statement from the [place] [employer]. ??Diabete s Care, Volume 33, Supplement 1, Jul 2009 BUN 11 10 - 20 mg/dL [facility] Creatinine 0.96 0.80 - 1.50 mg/dL [facility] Sodium 132 (L) 135 - 145 mmol/L [facility] Potassium 4.0 3.5 - 5.0 mmol/L [facility] Comment: Please note: ??Patients with WBC >100,00 0 may have falsely elevated Potassium levels. ??For accurate Potassium quantif ication in these patients send serum separator tube (gold top) for subsequent determinations. ??Contact the Clinical Chemistry Laboratory if there are any qu estions. Chloride 105 98 - 107 mmol/L [facility] CO2 17 (L) 22 - 31 mmol/L [facility] Anion Gap 10 5 - 15 mmol/L [facility] Calcium 7.6 (L) 8.5 - 10.5 mg/dL [facility] Estimated GFR 78 >=60 mL/min/1.73 m?? [facility] Comment: The eGFR was calculated using the CKD-EP I equation. As with all creatinine based estimates of kidney function, eGFR values calculated with the CKD-EPI equation are not accurate in patients wi th acute kidney failure, extremes of body mass or the acutely ill. [email or web address] OKLAHOMA CITYnkf eGFR 91 >=60 mL/min/1.73 m?? [facility] Comment: The eGFR was calculated using the CKD-EP I equation. As with all creatinine based estimates of kidney function, eGFR values calculated with the CKD-EPI equation are not accurate in patients wi th acute kidney failure, extremes of body mass or the acutely ill. [email or web address] Specimen Anatomical Collection Method Collection Time Receive d Time (Source) Location / / Volume Laterality Blood specimen 12/01/2019 3:55 AM 020 4:00 (specimen) EDT AM EDT Resulting Agency Comment Spec In Lab Gretchen Yoon MD CHEMISTRY ORDERABLES Performing Organization Address City/State/[place] [address] (ABNORMAL) Hemogram (12/01/2019 3:55 AM EDT) Analysis Performed At Patho [facility] Time Signature WBC 11.0 (H) 4.0 - 9.5 [facility] x10(3)/[facility] LABORATORY RBC 3.46 (L) 4.58 - [facility] 5.54 [facility] x10(6)/[facility] LABORATORY Hemoglobin 10.2 (L) 13.7 - [facility] 16.5 gm/dL [facility] Hematocrit 31.2 (L) 40.5 - [facility] 48.5 % [facility] MCV 90.2 82.9 - [facility] 93.1 [facility] LABORATORY MCH 29.5 27.5 - [facility] 32.1 pg [facility] MCHC 32.7 32.0 - [facility] 35.7 gm/dL [facility] Platelets 98 (L) 145 - 357 [facility] x10(3)/[facility] LABORATORY RDWSD 47.9 (H) 36.0 - [facility] 45.0 [facility] LABORATORY RDWCV 14.6 (H) 11.4 - [facility] 13.8 % [facility] MPV 12.3 7.6 - 12.9 [facility] LABORATORY nRBC % Auto 0.0 % [facility] nRBC Abs Auto 0.000 0.000 - [facility] 0.000 [facility] x10(3)/[facility] LABORATORY Specimen Anatomical Collection Method Collection Time Receive d Time (Source) Location / / Volume Laterality Blood specimen 12/01/2019 3:55 AM 020 4:00 (specimen) EDT AM EDT Resulting Agency Comment Spec In Lab Gretchen Yoon MD HEMATOLOGY ORDERABLES Performing Organization Address City/State/[place] [address] (ABNORMAL) BLOOD GAS 2 ARTERIAL (11/30/2019 10:39 PM EDT) Analysis Performed At [facility] Time Signature pH Art 7.45 7.35 - [facility] 7.45 [facility] pCO2 Art 23 (L) 35 - 45 [facility] LABORATORY pO2 Art 76 (L) 85 - 104 [facility] LABORATORY HCO3 Art 15.3 (L) 20.0 - [facility] 26.0 [facility] mmol/[facility] LAB[facility] BE Art -8.7 (L) -3.0 - 3.0 [facility] mmol/L [facility] Hgb Blood Gas 11.7 (L) 13.7 - [facility] 16.5 gm/dL [facility] O2HB Art 94.2 94.0 - [facility] 97.0 % [facility] COHB Art 0.5 % [facility] Comment: Nonsmokers: 0.5-1.5% COHB Smokers: Variable, but usually less than 10% Toxic: 20-30% COHB Lethal: Greater than 60% COHB METHB Art 0.6 <=1.5 % [facility]OR[facility]ORY Na Whole Blood 133 (L) 135 - 145 mmol/L [facility] K Whole Blood 3.8 3.5 - 5.0 mmol/L [facility] Comment: Please note: Patients with WBC >100,000 may have falsely elevated Potassium levels. Contact the Clinical Chemistry L aboratory if there are any questions. ICa Whole Blood 1.10 (L) 1.15 - 1.33 mmol/L [facility] Comment: Note: ??Total bilirubin higher than 20 m g/dL may lead to falsely low ionized calcium. CL Whole Blood 109 (H) 98 - 107 mmol/L [facility] Gluc Whole Bld 120 65 - 199 mg/dL [facility] Comment: Diabetes: >=200 mg/dL plus symp toms. Lactate WB 0.8 0.5 - 2.2 mmol/L [facility] FIO2 Art 100 % [facility] PF Ratio Art 76 [facility] LABOR[facility]ORY Specimen Anatomical Collection Method Collection Time Receive d Time (Source) Location / / Volume Laterality Blood specimen 11/30/2019 10:39 0 (specimen) PM EDT 10:39 PM EDT Gretchen Yoon MD CHEMISTRY ORDERABLES Performing Organization Address City/State/[place] [address] EKG 12 Lead (11/30/2019 [...] (Bezet) Calculated P 12 degrees [facility] [place] Calculated R 19 degrees [facility] [place] Calculated T -47 degrees [facility] [place] INTERPRETATION Sinus rhythm with Premature supraventricular complexes [...] Yoon MD ECG ORDERABLES Performing Organization Address City/[facility]/ZIP Code Phon e Number MUSE SYSTEM (ABNORMAL) Urinalysis Microscopic Exam (11/30/2019 8:40 PM EDT) P athologist Signature RBC UA 27 (H) 0 - 3 /HPF [facility] WBC UA 4 (H) 0 - 3 /HPF [facility] Hyaline Cast 3 (H) 0 - 2 /LPF [facility] Specimen (Source) Anatomical Collection Method Collection Time Re ceived Time Location / / Volume Laterality Urine specimen 11/30/2019 8:40 11/30/2019 obtained via PM EDT 10:51 PM EDT indwelling urinary catheter (specimen) Resulting Agency Comment Spec In Lab Rossy Winn MD URINE ORDERABLES Performing Organization Address City/[facility]/ZIP Code Phon e Number [place] [id number] HOSPITAL LABORATORY Drive (ABNORMAL) Urinalysis with reflex Culture (11/30/2019 8:40 PM EDT) Patholo gist Method Time Signature Glucose UA Negative Negative [facility] mg/dL [facility] Protein UA Negative Negative [facility] mg/dL [facility] Bilirubin UA Negative Negative [facility] mg/dL [facility] Comment: Clinical correlation required for positi ve Urine Bilirubin results as false positive may occur with some drugs and d rug related products. If a false positive is suspected a serum total bili morales should be considered if clinically indicated. Urobilinogen UA Normal Normal mg/dL [facility] pH UA 5.5 5.0 - 8.0 [facility] Blood UA Moderate (A) Negative mg/dL [facility] Ketones UA 40 (A) Negative mg/dL [facility] Nitrite UA Negative Negative [facility] Leukocytes UA Trace (A) Negative [facility] LABORATORY Appearance UA Clear Clear [facility] Spec [place] UA 1.026 1.006 - 1.030 [facility] Color UA Yellow Yellow [facility] Culture Reflexed No [facility] Specimen (Source) Anatomical Collection Method Collection Time Re ceived Time Location / / Volume Laterality Urine specimen 11/30/2019 8:40 11/30/2019 obtained via PM EDT 10:51 PM EDT indwelling urinary catheter (specimen) Resulting Agency Comment Spec In Lab Gretchen Yoon MD URINE ORDERABLES Performing Organization Address City/State/[place] [address] (ABNORMAL) pro-Brain Natriuretic Peptide (11/30/2019 8:30 PM EDT) P athologist Signature ProBNP 2,802 (H) <=125 [facility] pg/mL [facility] Specimen Anatomical Collection Method Collection Time Receive d Time (Source) Location / / Volume Laterality Blood specimen Venous Draw / 11/30/2019 8:30 PM 2019 8:36 (specimen) Unknown EDT PM EDT Resulting Agency Comment Spec In Lab Rossy Winn MD CHEMISTRY ORDERABLES Performing Organization Address City/State/ZIP Code Phon e Number [place] [id number]OS[address] LAB[address] (ABNORMAL) Troponin (11/30/2019 8:30 PM EDT) athologist Signature Troponin-T 5.04 (H) 0.00 - [place] MONAE 0.00 ng/mL [facility] Comment: The 99th percentile for [...] additional sample may be indicated. Reference: Third [place] Definition of Myocardial Infarction. Journal of the [place] [employer] 2012;60:1581-98 Specimen Anatomical Collection Method Collection Time Receive d Time (Source) Location / / Volume Laterality Blood specimen Venous Draw / 11/30/2019 8:30 PM 2019 8:36 (specimen) Unknown EDT PM EDT Resulting Agency Comment Spec In Lab Rossy Winn MD CHEMISTRY ORDERABLES Performing Organization Address City/State/[place] [address] Magnesium (11/30/2019 8:30 PM EDT) athologist Signature Magnesium 0.79 0.69 - 1.07 [facility] mmol/L [facility] Specimen Anatomical Collection Method Collection Time Receive d Time (Source) Location / / Volume Laterality Blood specimen 11/30/2019 8:30 PM 020 8:35 (specimen) EDT PM EDT Resulting Agency Comment Spec In Lab Gretchen Yoon MD CHEMISTRY ORDERABLES Performing Organization Address City/State/[place] [address] (ABNORMAL) Basic Metabolic Panel (non-fasting) (11/30/2019 8:30 PM EDT) athologist Signature Glucose Lvl 132 65 - 199 [facility] mg/dL [facility] Comment: Diabetes: >=200 mg/dL plus symp toms BUN 12 10 - 20 mg/dL [facility] Creatinine 0.94 0.80 - 1.50 mg/dL [facility] Sodium 136 135 - 145 mmol/L [facility] Potassium 3.9 3.5 - 5.0 mmol/L [facility] Comment: Please note: ??Patients with WBC >100,00 0 may have falsely elevated Potassium levels. ??For accurate Potassium quantif ication in these patients send serum separator tube (gold top) for subsequent determinations. ??Contact the Clinical Chemistry Laboratory if there are any qu estions. Chloride 108 (H) 98 - 107 mmol/L [facility] CO2 17 (L) 22 - 31 mmol/L [facility] Anion Gap 11 5 - 15 mmol/L [facility] Calcium 7.9 (L) 8.5 - 10.5 mg/dL [facility] Estimated GFR 80 >=60 mL/min/1.73 m?? [facility] Comment: The eGFR was calculated using the CKD-EP I equation. As with all creatinine based estimates of kidney function, eGFR values calculated with the CKD-EPI equation are not accurate in patients wi th acute kidney failure, extremes of body mass or the acutely ill. http://Inventergy/DHnkf eGFR 93 >=60 mL/min/1.73 m?? [facility] Comment: The eGFR was calculated using the CKD-EP I equation. As with all creatinine based estimates of kidney function, eGFR values calculated with the CKD-EPI equation are not accurate in patients wi th acute kidney failure, extremes of body mass or the acutely ill. http://Inventergy/DHnkf Specimen Anatomical Collection Method Collection Time Receive d Time (Source) Location / / Volume Laterality Blood specimen 11/30/2019 8:30 PM 020 8:35 (specimen) EDT PM EDT Resulting Agency Comment Spec In Lab Gretchen Yoon MD CHEMISTRY ORDERABLES Performing Organization Address [facility] Phon e Number [address] Blood culture (11/30/2019 8:30 PM EDT) Patholo gist Method Time Signature Blood Culture No growth MELINA MONAE at 5 days. [facility] Specimen Anatomical Collection Method Collection Time Receive d Time (Source) Location / / Volume Laterality Blood specimen 11/30/2019 8:30 PM 020 9:40 (specimen) EDT PM EDT Comment: L HAND Resulting Agency Comment Spec In Lab Gretchen Yoon MD MICROBIOLOGY - BLOOD ORDERAB LES Performing Organization Address City/[facility] [place] [address] Blood culture (11/30/2019 8:30 PM EDT) Patholo gist Method Time Signature Blood Culture No growth MELINA MONAE at 5 days. [facility] Specimen Anatomical Collection Method Collection Time Receive d Time (Source) Location / / Volume Laterality Blood specimen 11/30/2019 8:30 PM 020 9:40 (specimen) EDT PM EDT Comment: R HAND Resulting Agency Comment Spec In Lab Gretchen Yoon MD MICROBIOLOGY - BLOOD ORDERAB LES Performing Organization Address [facility] Phon e Number [address] XR Chest One View [...] below. ? Electronically signed by: ALBA Watson [facility] ([phone]), at 11/30/2019 8:32 PM Narrative 11/30/2019 8:32 [...] pH Art 7.45 7.35 - [facility] 7.45 [facility] pCO2 Art 27 (L) 35 - 45 [facility] mmHg [facility] pO2 Art 68 (L) 85 - 104 [facility] LABORATORY HCO3 Art 18.2 (L) 20.0 - [facility] 26.0 [facility] mmol/[facility] BE Art -5.9 (L) -3.0 - 3.0 [facility] mmol/L [facility] Hgb Blood Gas 12.4 (L) 13.7 - [facility] 16.5 gm/dL [facility] O2HB Art 93.1 (L) 94.0 - [facility] 97.0 % [facility] COHB Art 0.8 % [facility] Comment: Nonsmokers: 0.5-1.5% COHB Smokers: Variable, but usually less than 10% Toxic: 20-30% COHB Lethal: Greater than 60% COHB METHB Art 0.4 <=1.5 % [facility] Na Whole Blood 133 (L) 135 - 145 mmol/L [facility] K Whole Blood 3.6 3.5 - 5.0 mmol/L [facility] Comment: Please note: Patients with WBC >100,000 may have falsely elevated Potassium levels. Contact the Clinical Chemistry L aboratory if there are any questions. ICa Whole Blood 1.13 (L) 1.15 - 1.33 mmol/L [facility] Comment: Note: ??Total bilirubin higher than 20 m g/dL may lead to falsely low ionized calcium. CL Whole Blood 108 (H) 98 - 107 mmol/L [facility] Gluc Whole Bld 121 65 - 199 mg/dL [facility] Comment: Diabetes: >=200 mg/dL plus symp toms. Lactate WB 1.2 0.5 - 2.2 mmol/L [facility] Flow Art 5.0 LPM [facility] Specimen Anatomical Collection Method Collection Time Receive d Time (Source) Location / / Volume Laterality Blood specimen 11/30/2019 8:09 PM 020 8:09 (specimen) EDT PM EDT Gretchen Yoon MD CHEMISTRY ORDERABLES Performing Organization Address City/State/ZIP Code Phon e Number [place] [id number]OS[address] LAB[address]ORY Drive CT Angiogram [place] (11/30/2019 4:36 PM EDT) Anatomical [...] CT HEAD WO CONTRAST (GENERIC), CT ANGIOGRAM [place] CLINICAL HISTORY: Headache, intracranial hemorrhage suspected F/U on known ICH - assessing for propaga tion TECHNIQUE: CT head performed without intravenous co ntrast administration. CT angiogram [place] of [place] 65 cc Omnipaque 350 administered [...] HEAD WO CONTRAST (GENERI C), CT ANGIOGRAM [place] CLINICAL HISTORY: Headache, intracranial hemorrhage suspected F/U on known ICH - assessing for propaga tion TECHNIQUE: CT head performed without intravenous co ntrast administration. CT angiogram [place] 65 cc Omnipaque 350 administered [...] CT HEAD WO CONTRAST (GENERIC), CT ANGIOGRAM [place] CLINICAL HISTORY: Headache, intracranial hemorrhage suspected F/U on known ICH - assessing for propaga tion TECHNIQUE: CT head performed without intravenous co ntrast administration. CT angiogram [place] 65 cc Omnipaque 350 administered [...] HEAD WO CONTRAST (GENERI C), CT ANGIOGRAM [place] CLINICAL HISTORY: Headache, intracranial hemorrhage suspected F/U on known ICH - assessing for propaga tion TECHNIQUE: CT head performed without intravenous co ntrast administration. CT angiogram [place] 65 cc Omnipaque 350 administered [...] by: Angel Luis Barboza MD, [facility] ([phone]), at 11/30/2019 5:04 PM Gretchen Yoon MD [...] 453 ms MUSE SYSTEM (Bezet) Calculated P [place] 52 degrees MUSE SYSTEM Calculated R [place] 5 degrees MUSE SYSTEM Calculated T [place] -60 degrees MUSE SYSTEM INTERPRETATION Sinus rhythm [...] [place]an ? (Age): 1945(74y) Med Rec#: ? [id number] ?Sex: ?M ? Site Loc: ? [facility] ?Ht / Wt: ??178(cm)/64(kg) Pt. Loc: ?CCU ? BSA: ?1.8 Study Date: ?? 11/30/2019 ?Pt. Type: Inpatient Tape: ? Referring: GILMER Reading: Tello Mejia ([id number]) Shooting Gallery Operator: Friend, Lolita Diagnosis: *ST elevation (STEMI) myocardial [...] Vmax ?0.58 ? m/sec ? MV deceleration dged911.05 ? m sec ? MV A-wave Vmax [...] ? Mid-Inferior ?Akinetic ? Mid-Inferoseptal ?Normal ? [place]-Septal ? Normal ? [place]-Anterior ? Normal ? [place]-Lateral ?Normal ? [place]-Inferior ? Hypokinetic ? [place]-Tip ?Normal ? This report has been electronically sign ed by: _ Tello Mejia MD ? 11/30/2019 12: 45:27 Images [facility] Procedure Note Tello Mejia MD - 11/30/2019Formatti ng of this note might be different from the original. Procedure: Transthoracic Echocardiogram Patient: RITA ACOSTA(Age): [birth year](74y) Med Rec#: [id number] Sex: M Site Loc: [facility] Ht / Wt: 178(cm)/64(kg) Pt. Loc: [facility] BSA: 1.8 Study Date: 11/30/2019 Pt. Type: Inpatie nt Tape: Referring: DNOAYMICMUNIRAJ Reading: Tello Mejai ([id number]) Shooting Gallery Operator: Lolita Prado Diagnosis: *ST elevation (STEMI) myocardial [...] MV E-wave Vmax 0.58 m/sec MV deceleration lrip780.05 msec MV A-wave Vmax 0.74 m/sec MV [...] Hypokinetic Mid-Posterolateral Hypokinetic Mid-Inferior Akinetic Mid-Inferoseptal Normal [place]-Septal Normal [place]-Anterior Normal [place]-Lateral Normal [place]-Inferior Hypokinetic [place]-Tip Normal This report has been electronically sign ed by: _ Tello Mejia MD 11/30/2019 12:45:27 Images reviewed and interpretation rafaela devin [facility] Cardiac Ultrasound Laboratory Gretchen Yoon MD [...] by: Angel Luis Barboza MD, [facility] ([phone]), at 11/30/2019 12:04 PM Narrative 11/30/2019 12:04 [...] Emergency Department Magnesium 0.88 0.69 - 1.07 [facility] mmol/L [facility] Specimen Anatomical Collection Method Collection Time Receive d Time (Source) Location / / Volume Laterality Blood specimen Venous Draw / 11/30/2019 8:30 AM 2019 8:37 (specimen) Unknown EDT AM EDT Resulting Agency Comment Spec In Lab Rossy Winn MD CHEMISTRY ORDERABLES Performing Organization Address City/[facility]/ZIP [place] [address] (ABNORMAL) CK (11/30/2019 8:30 AM EDT) athologist [facility] Emergency Department CK, Total 1,645 (H) 0 - 200 [facility] Specimen Anatomical Collection Method Collection Time Receive d Time (Source) Location / / Volume Laterality Blood specimen 11/30/2019 8:30 AM 020 8:32 (specimen) EDT AM EDT Resulting Agency Comment Spec In Lab Gretchen Yoon MD CHEMISTRY ORDERABLES Performing Organization Address City/[facility] [place] [address] (ABNORMAL) Troponin (11/30/2019 8:30 AM EDT) athologist [facility] Emergency Department Troponin-T 8.04 (H) 0.00 - MELINA DOV 0.00 ng/mL [facility] Comment: result rechecked-rancho The [address] [...] additional sample may be indicated. Reference: Third [place] Definition of Myocardial Infarction. Journal of the [place] [employer] 2012;60:1581-98 Specimen Anatomical Collection Method Collection Time Receive d Time (Source) Location / / Volume Laterality Blood specimen 11/30/2019 8:30 AM 020 8:32 (specimen) EDT AM EDT Resulting Agency Comment Spec In Lab Gretchen Yoon MD CHEMISTRY ORDERABLES Performing Organization Address City/State/ZIP Code Phon e Number [place] [phone]OS[address] LAB[address] Drive EKG 12 Lead (11/30/2019 7:57 AM EDT) Component Value Ref Range Test Analysis Performed Pathologis t Method Time At Signature Ventricular rate 64 BPM MUSE SYSTEM Atrial Rate 64 BPM MUSE SYSTEM P-R Interval 132 ms MUSE SYSTEM QRS Duration 78 ms MUSE SYSTEM Q-T Interval 420 ms MUSE SYSTEM QTC Calculated 433 ms MUSE SYSTEM (Bezet) Calculated P [place] 28 degrees MUSE SYSTEM Calculated R [place] 7 degrees MUSE SYSTEM Calculated T [place] -33 degrees MUSE SYSTEM INTERPRETATION Sinus rhythm [...] 147 (H) 65 - 99 [facility] Fasting mg/dL [facility] Comment: ?Fasting* Glucose Interpretive C [...] of Diabetes Mellitus, Position Statement from the [place] [employer]. ??Diabete s Care, Volume 33, Supplement 1, Jul 2009 BUN 13 10 - 20 mg/dL [facility] Creatinine 0.90 0.80 - 1.50 mg/dL [facility] Sodium 135 135 - 145 mmol/L [facility] Potassium 3.9 3.5 - 5.0 mmol/L [facility] Comment: Please note: ??Patients with WBC >100,00 0 may have falsely elevated Potassium levels. ??For accurate Potassium quantif ication in these patients send serum separator tube (gold top) for subsequent determinations. ??Contact the Clinical Chemistry Laboratory if there are any qu estions. Chloride 108 (H) 98 - 107 mmol/L [facility] CO2 16 (L) 22 - 31 mmol/L [facility] Anion Gap 11 5 - 15 mmol/L [facility] Calcium 7.5 (L) 8.5 - 10.5 mg/dL [facility] Estimated GFR 84 >=60 mL/min/1.73 m?? [facility] Comment: The eGFR was calculated using the CKD-EP I equation. As with all creatinine based estimates of kidney function, eGFR values calculated with the CKD-EPI equation are not accurate in patients wi th acute kidney failure, extremes of body mass or the acutely ill. http://Inventergy/[facility] eGFR 98 >=60 mL/min/1.73 m?? [facility] Comment: The eGFR was calculated using the CKD-EP I equation. As with all creatinine based estimates of kidney function, eGFR values calculated with the CKD-EPI equation are not accurate in patients wi th acute kidney failure, extremes of body mass or the acutely ill. http://Inventergy/[facility] [place]f Specimen Anatomical Collection Method Collection Time Receive d Time (Source) Location / / Volume Laterality Blood specimen 11/30/2019 2:15 AM 020 2:29 (specimen) EDT AM EDT Resulting Agency Comment Spec In Lab Gretchen Yoon MD CHEMISTRY ORDERABLES Performing Organization Address City/State/ZIP Code Phon e Number [place] [phone]OS[address] LAB[address]ORY Drive (ABNORMAL) Hemogram (11/30/2019 2:15 AM EDT) Analysis Performed At Patho logist Time Signature WBC 11.2 (H) 4.0 - 9.5 [facility] x10(3)/[facility] LABORATORY RBC 3.83 (L) 4.58 - [facility] 5.54 [facility] x10(6)/[facility] LABORATORY Hemoglobin 11.4 (L) 13.7 - [facility] 16.5 gm/dL [facility] Hematocrit 35.2 (L) 40.5 - [facility] 48.5 % [facility] MCV 91.9 82.9 - [facility] 93.1 fL [facility] MCH 29.8 27.5 - [facility] 32.1 pg [facility] MCHC 32.4 32.0 - MELINA MONAE 35.7 gm/dL [facility] Platelets 122 (L) 145 - 357 MELINA MARSHDOV x10(3)/[facility] LABORATORY RDWSD 49.8 (H) 36.0 - MELINA MONAE 45.0 [facility] LABORATORY RDWCV 14.8 (H) 11.4 - MELINA [place] 13.8 % [facility] MPV 12.1 7.6 - 12.9 MELINA MONAE [facility] LABORATORY nRBC % Auto 0.0 % [facility] nRBC Abs Auto 0.000 0.000 - MELINA MARSHDOV 0.000 [facility] x10(3)/[facility] LABORATORY Specimen Anatomical Collection Method Collection Time Receive d Time (Source) Location / / Volume Laterality Blood specimen 11/30/2019 2:15 AM 020 2:29 (specimen) EDT AM EDT Resulting Agency Comment Spec In Lab Gretchen Yoon MD HEMATOLOGY ORDERABLES Performing Organization Address City/State/[place] [address] (ABNORMAL) CK (11/30/2019 2:15 AM EDT) athologist [facility] Emergency Department CK, Total 1,969 (H) 0 - 200 [facility] DOV unit/L [facility] Specimen Anatomical Collection Method Collection Time Receive d Time (Source) Location / / Volume Laterality Blood specimen 11/30/2019 2:15 AM 020 2:29 (specimen) EDT AM EDT Resulting Agency Comment Spec In Lab Gretchen Yoon MD CHEMISTRY ORDERABLES Performing Organization Address City/State/Z[place] [address] (ABNORMAL) Troponin (11/30/2019 2:15 AM EDT) athologist [facility] Emergency Department Troponin-T 11.73 (H) 0.00 - MELINA MONAE 0.00 ng/mL [facility] Comment: result rechecked-slw The 99th [...] additional sample may be indicated. Reference: Third [place] Definition of Myocardial Infarction. Journal of the [place] College [employer] Cardiology 2012;60:1581-98 result rechecked- The [...] additional sample may be indicated. Reference: [place] Definition of Myocardial Infarction. Journal of the [place] College of Cardiology 2012;60:1581-98 Corrected from 11.73 ng/ml [HI] on 11/29 3:11:51 EDT by Debi Hawley Specimen Anatomical Collection Method Collection Time Receive d Time (Source) Location / / Volume Laterality Blood specimen 11/30/2019 2:15 AM 020 2:29 (specimen) EDT AM EDT Resulting Agency Comment Spec In Lab Gretchen Yoon MD CHEMISTRY ORDERABLES Performing Organization Address City/[facility]/ZIP Code Phon e Number [address] LDL Cholesterol, Direct (11/30/2019 2:15 AM EDT) P athologist Signature LDL Chol 156 mg/dL [facility] LABORATORY Comment: Lowest Risk: <100 mg/dL Lower Risk: 100-129 mg/dL Borderline High Risk: 130-159 mg/dL High Risk: 160-189 mg/dL Very High Risk: >qi=031 mg/dL Specimen Anatomical Collection Method Collection Time Receive d Time (Source) Location / / Volume Laterality Blood specimen 11/30/2019 2:15 AM 020 2:29 (specimen) EDT AM EDT Resulting Agency Comment Spec In Lab Gretchen Yoon MD CHEMISTRY ORDERABLES Performing Organization Address City/[facility]/ZIP Code Phon e Number [address] (ABNORMAL) Hemoglobin A1c (11/30/2019 2:15 AM EDT) Analysis Performed At Patho logist Time Signature Hemoglobin A1C 6.3 (H) 4.3 - 5.6 [facility] Comment: Reference Range: 4.3 [...] Mellitus, Diabetes Care 2013; 36: Suppl. 1, J44-88 Est Avg Gluc See note mg/dL [facility] Comment: Estimated Average Glucose not appropriat [...] with hemoglobinopathies. Additional resources are available on [facility] ADA website. Kiko CARBAJAL, Jenn J, Silas R, et al. ??Tr anslating the A1C assay into estimated average glucose values. ??Diabetes Care 2008:31(8):7714-1848. Specimen Anatomical Collection Method Collection Time Receive d Time (Source) Location / / Volume Laterality Blood specimen 11/30/2019 2:15 AM 020 2:29 (specimen) EDT AM EDT Resulting Agency Comment Spec In Lab Grethcen Yoon MD CHEMISTRY ORDERABLES Performing Organization Address City/State/[place] [address] Lipid Panel (Reflex Direct LDL) (11/30/2019 2:15 AM EDT) athologist Signature Chol, Total 195 mg/dL [facility] Comment: Lower Risk: <200 mg/dL Average Risk: 200-239 mg/dL Higher Risk: >po=620 mg/dL Triglycerides 93 mg/dL [facility] Comment: Average Risk/Lower Risk: <150 mg/dL Borderline High Risk: 150-199 mg/dL High Risk: 200-499 mg/dL Very High Risk: >pg=685 mg/dL HDL 32 mg/dL [facility] Comment: Males: ?? Higher Risk: <40 mg/dL Females: ?? HIgher Risk: <50 mg/dL LDL Cholesterol 144 mg/dL [facility] Comment: Lowest Risk: <100 mg/dL Lower Risk: 100-129 mg/dL Borderline High Risk: 130-159 mg/dL High Risk: 160-189 mg/dL Very High Risk: >pn=710 mg/dL Chol/HDL Ratio 6.[address] [facility] Lipid Interpretation See Note [facility] Comment: Lipid management should be guided by a p atient? s ASCVD risk, goals and preferences. ACC/AHA Guidelines recommend high intens ity statin if clinical ASCVD or LDL greater than or equal to 190 mg/dL. http://Inventergy/KFA-LPH-Tfcngscyr Adults aged 40-75 with LDL 70-189 mg/dL should have their 10 year ASCVD risk estimated with the ACC/AHA ASCVD risk es timator http://tools.acc.org/MNDYC-Ffql-Humkzajq r/ Statin should be discussed if risk [...] Organization Address City/State/[place] [address] (ABNORMAL) CK (11/29/2019 6:35 PM EDT) athologist Signature CK, Total 2,780 (H) 0 - 200 [facility] unit/L [facility] Specimen Anatomical Collection Method Collection Time Receive d Time (Source) Location / / Volume Laterality Blood specimen 11/29/2019 6:35 PM 020 6:53 (specimen) EDT PM EDT Resulting Agency Comment Spec In Lab Gretchen Yoon MD CHEMISTRY ORDERABLES Performing Organization Address City/State/[place] [address] (ABNORMAL) Troponin (11/29/2019 6:35 PM EDT) athologist Signature Troponin-T 17.60 (H) 0.00 - [facility] 0.00 ng/mL [facility] Comment: result rechecked-az The [address] [...] additional sample may be indicated. Reference: Third [place] Definition of Myocardial Infarction. Journal of the [place] College of Cardiology 2012;60:1581-98 Specimen Anatomical Collection Method Collection Time Receive d Time (Source) Location / / Volume Laterality Blood specimen 11/29/2019 6:35 PM 020 6:53 (specimen) EDT PM EDT Resulting Agency Comment Spec In Lab Gretchen Yoon MD CHEMISTRY ORDERABLES Performing Organization Address City/State/ZIP Code Phon e Number [place] [id number]OS[address] Drive EKG 12 Lead (11/29/2019 3:58 PM EDT) [facility] gist Method Time Signature Ventricular rate 73 BPM MUSE SYSTEM Atrial Rate 73 BPM MUSE SYSTEM P-R Interval 152 ms MUSE SYSTEM QRS Duration 84 ms MUSE SYSTEM Q-T Interval 404 ms MUSE SYSTEM QTC Calculated 445 ms MUSE SYSTEM (Bezet) Calculated P [place] 50 degrees MUSE SYSTEM Calculated R [place] -4 degrees MUSE SYSTEM Calculated T [place] 19 degrees MUSE SYSTEM INTERPRETATION Sinus rhythm [...] below. ? Electronically signed by: Devin Solis [facility] ([phone]), at 11/29/2019 5:06 PM --------ORIGINAL REPORT -------- EXAMINATION: XR CHEST ONE VIEW CLINICAL HISTORY: stemi (as entered by o [facility] provider in the order requisition) TECHNIQUE: [...] lung apex is excluded from the imaged [id number]. IMPRESSION: 1. ??New right internal jugular pulmonar [...] below. ? Electronically signed by: Devin Solis [facility] ([phone]), at 11/29/2019 4:36 PM Impressions 11/29/2019 4:36 [...] below. ? Electronically signed by: Devin Solis [facility] ([phone]), at 11/29/2019 4:36 PM Narrative 11/29/2019 4:36 [...] lung apex is excluded from the imaged [id number]. Procedure Note Estefani Harris MD - 11/29/2019Formattin [...] lung apex is excluded from the imaged cjfbs-[id number]. IMPRESSION 1. New right internal jugular pulmonary [...] (ABNORMAL) Differential, Automated (11/29/2019 2:32 PM EDT) [facility] Method Time Signature Neutrophils % 83.8 % [facility] Neutr Abs (ANC) 12.12 (H) 1.70 - [facility] 6.10 [facility] x10(3)/[facility] LABORATORY Lymphocytes % 9.1 % [facility] Lymphocytes Abs 1.3 0.9 - 3.2 [facility] x10(3)/[facility] LABORATORY Monocytes % 6.2 % [facility] Monocyte Abs 0.9 0.3 - 0.9 [facility] x10(3)/[facility] LABORATORY Eosinophils % 0.0 % [facility] Eosinophils Abs 0.0 0.0 - 0.4 [facility] x10(3)/[facility] LABORATORY Basophils % 0.3 % [facility] Basophils Abs 0.0 0.0 - 0.1 [facility] x10(3)/[facility] LABORATORY Immature Gran % 0.60 % [facility] Comment: Immature granulocytes(IG's)percentage an d absolute count will include metamyelocytes, myelocytes, and promyelo cytes. Blood smears from CBCs yielding IG's will be scanned manually for concor dance. If this scan disagrees with the automated IG or if promyelocytes are not ed, a manual differential will be performed. Pita Gran Abs 0.08 (H) 0.00 - 0.04 x10(3)/[facility] LABORATORY Specimen Anatomical Collection Method Collection Time Receive d Time (Source) Location / / Volume Laterality Blood specimen 11/29/2019 2:32 PM 020 2:55 (specimen) EDT PM EDT Resulting Agency Comment Spec In Lab Darrell Glasgow MD HEMATOLOGY ORDERABLES Performing Organization Address City/State/Z[place] [address] (ABNORMAL) Hemogram (11/29/2019 2:32 PM EDT) Analysis Performed At Patho logist Time Signature WBC 14.5 (H) 4.0 - 9.5 [facility] x10(3)/[facility] LABORATORY RBC 4.53 (L) 4.58 - [facility] 5.54 [facility] x10(6)/[facility] LABORATORY Hemoglobin 13.1 (L) 13.7 - [facility] 16.5 gm/dL [facility] Hematocrit 40.8 40.5 - [facility] 48.5 % [facility] MCV 90.1 82.9 - [facility] 93.1 [facility] LABORATORY MCH 28.9 27.5 - [facility] 32.1 pg [facility] LAB[facility] MCHC 32.1 32.0 - [facility] 35.7 gm/dL [facility] LAB[facility] Platelets 184 145 - 357 [facility] x10(3)/[facility] LABORATORY RDWSD 47.8 (H) 36.0 - [facility] DOV 45.0 [facility] LABORATORY RDWCV 14.5 (H) 11.4 - [facility] DOV 13.8 % [facility] LABORATORY MPV 11.9 7.6 - 12.9 [facility] nRBC % Auto 0.0 % [facility] LABORATORY nRBC Abs Auto 0.000 0.000 - [facility] DOV 0.000 [facility] x10(3)/[facility] LABORATORY Specimen Anatomical Collection Method Collection Time Receive d Time (Source) Location / / Volume Laterality Blood specimen 11/29/2019 2:32 PM 020 2:55 (specimen) EDT PM EDT Resulting Agency Comment Spec In Lab Darrell Glasgow MD HEMATOLOGY ORDERABLES Performing Organization Address City/State/ZIP Code Phon e Number [address] (ABNORMAL) CK (11/29/2019 2:32 PM EDT) athologist Signature CK, Total 3,282 (H) 0 - 200 [facility] unit/L [facility] LABORATORY Specimen Anatomical Collection Method Collection Time Receive d Time (Source) Location / / Volume Laterality Blood specimen 11/29/2019 2:32 PM 020 2:32 (specimen) EDT PM EDT Resulting Agency Comment Spec In Lab Gretchen Yoon MD CHEMISTRY ORDERABLES Performing Organization Address City/[facility]/[place]IP [place] [address] (ABNORMAL) Troponin (11/29/2019 2:32 PM EDT) athologist Signature Troponin-T 20.33 (H) 0.00 - [facility] 0.00 ng/mL [facility] LABORATORY Comment: The 99th percentile for [...] additional sample may be indicated. Reference: Third [place] Definition of Myocardial Infarction. Journal of the [place] [employer] 2012;60:1581-98 Specimen Anatomical Collection Method Collection Time Receive d Time (Source) Location / / Volume Laterality Blood specimen 11/29/2019 2:32 PM 020 2:32 (specimen) EDT PM EDT Resulting Agency Comment Spec In Lab Gretchen Yoon MD CHEMISTRY ORDERABLES Performing Organization Address [facility] [place] [address] (ABNORMAL) APTT (11/29/2019 2:32 PM EDT) athologist Signature PTT 114 25 - 37 [facility] (Critical) [facility] LABORATORY Comment: Critical Result called by ?? [...] Yoon MD HEMATOLOGY ORDERABLES Performing Organization Address [facility] [place] [address] (ABNORMAL) Prothrombin Time (11/29/2019 2:32 PM EDT) P athologist Signature PT 13.5 (H) 9.4 - 12.5 [facility] LABORATORY INR 1.2 [facility] LABORATORY Comment: An INR <2.0 indicates [...] Organization Address City/State/[place] [address] (ABNORMAL) Hepatic Function Panel (11/29/2019 2:32 PM EDT) athologist Signature Total Protein 6.3 6.1 - 8.0 [facility] gm/dL [facility] Albumin 3.6 3.2 - 5.2 [facility] gm/dL [facility] LAB[facility] AST 257 (H) 0 - 39 [facility] unit/L [facility] LAB[facility] ALT 50 0 - 55 [facility] unit/L [facility] LAB[facility] Alk Phos 84 40 - 130 [facility] unit/L [facility] LABORATORY Total 0.3 0.2 - 1.3 [facility] Bilirubin mg/dL [facility] LABOR[facility] Bili, Direct 0.1 0.0 - 0.3 [facility] DOV mg/dL [facility] LABORATORY Specimen Anatomical Collection Method Collection Time Receive d Time (Source) Location / / Volume Laterality Blood specimen 11/29/2019 2:32 PM 020 2:32 (specimen) EDT PM EDT Resulting Agency Comment Spec In Lab Gretchen Yoon MD CHEMISTRY ORDERABLES Performing Organization Address City/[facility]/[place]IP [place] [address] (ABNORMAL) pro-Brain Natriuretic Peptide (11/29/2019 2:32 PM EDT) P athologist Signature ProBNP 272 (H) <=125 pg/mL [facility] LABORATORY Specimen Anatomical Collection Method Collection Time Receive d Time (Source) Location / / Volume Laterality Blood specimen 11/29/2019 2:32 PM 020 2:32 (specimen) EDT PM EDT Resulting Agency Comment Spec In Lab Gretchen Yoon MD CHEMISTRY ORDERABLES Performing Organization Address City/[facility]/ZIP [place] [address] Magnesium (11/29/2019 2:32 PM EDT) athologist Signature Magnesium 0.76 0.69 - 1.07 [facility] mmol/L [facility] LABORATORY Specimen Anatomical Collection Method Collection Time Receive d Time (Source) Location / / Volume Laterality Blood specimen 11/29/2019 2:32 PM 020 2:32 (specimen) EDT PM EDT Resulting Agency Comment Spec In Lab Gretchen Yoon MD CHEMISTRY ORDERABLES Performing Organization Address City/State/ZIP Code Phon e Number [address] (ABNORMAL) Basic Metabolic Panel (non-fasting) (11/29/2019 2:32 PM EDT) athologist Signature Glucose Lvl 149 65 - 199 [facility] mg/dL [facility] LABORATORY Comment: Diabetes: >=200 mg/dL plus symp toms BUN 16 10 - 20 mg/dL [facility] LABORATORY Creatinine 0.94 0.80 - 1.50 mg/dL [facility] LABORATORY Sodium 135 135 - 145 mmol/L [facility] LABORATORY Potassium 4.5 3.5 - 5.0 mmol/L [facility] LABORATORY Comment: Please note: ??Patients with WBC >100,00 0 may have falsely elevated Potassium levels. ??For accurate Potassium quantif ication in these patients send serum separator tube (gold top) for subsequent determinations. ??Contact the Clinical Chemistry Laboratory if there are any qu estions. Chloride 105 98 - 107 mmol/L [facility] LABORATORY CO2 15 (L) 22 - 31 mmol/L [facility] LAB[facility] Anion Gap 15 5 - 15 mmol/L [facility] LABORATORY Calcium 8.0 (L) 8.5 - 10.5 mg/dL [facility] LABORATORY Estimated GFR 80 >=60 mL/min/1.73 m?? [facility] LABORATORY Comment: The eGFR was calculated using the CKD-EP I equation. As with all creatinine based estimates of kidney function, eGFR values calculated with the CKD-EPI equation are not accurate in patients wi th acute kidney failure, extremes of body mass or the acutely ill. http://[employer]/DHnkf eGFR 93 >=60 mL/min/1.73 m?? [facility] LABORATORY Comment: The eGFR was calculated using the CKD-EP I equation. As with all creatinine based estimates of kidney function, eGFR values calculated with the CKD-EPI equation are not accurate in patients wi th acute kidney failure, extremes of body mass or the acutely ill. http://[employer]/[facility] OKLA[facility] CITYnkf Specimen Anatomical Collection Method Collection Time Receive d Time (Source) Location / / Volume Laterality Blood specimen 11/29/2019 2:32 PM 020 2:32 (specimen) EDT PM EDT Resulting Agency Comment Spec In Lab Gretchen Yoon MD CHEMISTRY ORDERABLES Performing Organization Address City/[facility] [place] [address] EKG 12 Lead (11/29/2019 11:38 AM EDT) [facility] gist Method Time Signature Ventricular rate 60 BPM MUSE SYSTEM Atrial Rate 60 BPM MUSE SYSTEM P-R Interval 140 ms MUSE SYSTEM QRS Duration 86 ms MUSE SYSTEM Q-T Interval 474 ms MUSE SYSTEM QTC Calculated 474 ms MUSE SYSTEM (Bezet) Calculated P [place] 48 degrees MUSE SYSTEM Calculated R [place] 14 degrees MUSE SYSTEM Calculated T [place] 58 degrees MUSE SYSTEM INTERPRETATION Normal sinus [...] Yoon MD ECG ORDERABLES Performing Organization Address City/[facility]/ZIP [facility] Phon e Number MUSE SYSTEM CARDIAC CATHETERIZATION (11/29/2019 11:15 AM EDT) Anatomical Region Laterality Modality Other Specimen (Source) Anatomical Location Collection Method / Collectio n Time Received Time / Laterality Volume Narrative 11/30/2019 1:09 PM EDT ?[facility] ? Cardiac Cathete rization/Intervention Report ? Patient Name: Slainas, Angel Luis H. ? Procedure Date: 11/29/2019 ? A #: [id number] ? Primary Physician: Young, Gretchen N ? Case #: [id number] ? File Name: [id number] ? Catheterization Order Number: [id number] ? [facility] ? Final Report [place], [place] ? Patient Name: ? Angel Luis Salinas ? ID#: ?[id number] ? : ?1945 ? Procedure Date: ? [...] procedure was Emergent. 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 ?Recommended anti-platelet/anti- thrombotic regimen: ?Continue aspirin 81 mg daily fo r indefinitely. ?Continue clopidogrel 75 mg marco a y for 12 months then stop. ?These recommendations are made at the time of the intervention. Patient ?and provider preferences or a c hanging clinical situation may require ?modification of this regimen. C marvult [facility] Interventional Cardiology for ?questions. ? Conclusions: ?* [...] note might be different from the original. [facility] Cardiac Catheterization/Intervention Re port Patient Name: Angel Luis Salinas Procedure Date: 11/29/2019 A #: [id number] Primary Physician: Gretchen Yoon Case #: [id number] File Name: [id number] Catheterization Order Number: [id number] [facility] Final Report [place], [place] Patient Name: Angel Luis Salinas ID#: [id number] : 1945 Procedure Date: November 29, [...] was designated as ASA Class IV. The [facility] clinical frailty scale is 4: Vulnerable. Diagnostic Tests: Electrocardiography: EKG was assessed by ECG. EKG was Abnorm al. EKG showed ST Deviation >= 0.5 mm. Medications Prior to Procedure: Aspirin. Indications for Diagnostic Cath: The priority of the diagnostic procedur e was Emergent. The indication for the greens laborer visit is ACS less than or [...] priority for the procedure was Emergent. The [facility] indication for the procedure was S GAETANO [...] administered prior t o arrival in the greens laborer. Recommended anti-platelet/anti-thrombot ic regimen: Continue aspirin 81 mg daily for indefi nitely. Continue clopidogrel 75 mg daily for 12 months then stop. These recommendations are made at the t loyda of the intervention. Patient and provider preferences or a changing clinical situation may require modification of this regimen. Consult [facility] Interventional Cardiology for questions. Conclusions: * Two [...] pH 7.33 (L) 7.35 - [facility] 7.45 [facility] LABORATORY POC PCO2 33 (L) 35 - 45 [facility] mmHg [facility] LABORATORY POC PO2 56 (L) 85 - 104 [facility] LABORATORY POC Base Excess -8.0 (L) -3.0 - 3.0 [facility] mmol/L [facility] LABORATORY POC HCO3 17.4 (L) 20.0 - [facility] 26.0 [facility] mmol/[facility] LABORATORY POC Sodium 137 135 - 145 [facility] mmol/L [facility] LABORATORY POC Potassium 3.6 3.5 - 5.0 [facility] mmol/L [facility] POC Ionized Ca 1.15 1.15 - [facility] 1.33 [facility] POC Hematocrit 37.0 (L) 40.0 - [facility] 51.0 % [facility] LABORATORY POC Calc Hgb 12.6 (L) 13.7 - [facility] 17.5 gm/dL [facility] LABORAT[facility] Comment: The calculation of hemoglobin f rom hematocrit assumes a normal MCHC. POC Bgas Loc CC LAB [facility] LABORATORY Specimen Anatomical Collection Method Collection Time Receive d Time (Source) Location / / Volume Laterality Blood specimen 11/29/2019 9:17 AM 020 7:35 (specimen) EDT AM EDT Gretchen Yoon MD CHEMISTRY ORDERABLES Performing Organization Address City/State/[place] [address] EKG 12 Lead (11/29/2019 9:01 AM EDT) Component Value Ref Range Test Analysis Performed Pathologis t Method Time At Signature Ventricular rate 80 BPM MUSE SYSTEM Atrial Rate 79 BPM MUSE SYSTEM QRS Duration 94 ms MUSE SYSTEM Q-T Interval 436 ms MUSE SYSTEM QTC Calculated 502 ms MUSE SYSTEM (Bezet) Calculated R [place] 54 degrees MUSE SYSTEM Calculated T [place] 80 degrees MUSE SYSTEM INTERPRETATION Normal sinus [...] 150 mg, Intravenous, ONCE, 1 dose, On [place] 12/07/19 at 1315, Warning Vesicant/Irritant Medication , [...] mL/hr 250 mL/hr, Intravenous, CONTINUOUS, Starting on [place] 12/07/19 at 0145, Until [place] 12/07/19 at 0239 levoFLOXacin (LEVAQUIN) 750 mg in New Bag 11/30/2019 11:03 PM EDT 750 mg 100 mL/hr dextrose 5% 150 mL 750 mg, Intravenous, at 100 mL/hr, EVERY 24 HOURS, First dose on [place] 11/30/19 at 2300, Until Discontinued, Routine lisinopriL [...] ONCE, 1 dose, 12/06/19 at 0515, 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
Administer for serum potassium (mMol/L) of 3.9 - 4 See instructions for Potassium Protocol in online policies.
Routine Or potassium chloride ER (K-Dur/Klor-Con) tablet 40 mEqJump to med 40 mEq, Oral, EVERY 4 HOURS PRN, Startin g [place] 11/30/19 at 2016, Until Sun12/08/19 at 1811, hypokalemia
Administer for serum potassium (mMol/L) of 3.6 - 3.8 See instructions for Potassium Protocol in online policies.
Routine documented in this encounter Care Teams Director Of Business Services Relationship Specialty Start Date End Date France Lam MD PCP - General 05/02/13 02/04/20 [address] [place] [address] documented as of this encounter
--- OUTSIDE RECORDS SUMMARY | 2022-03-23 11:06 | XMS_ITS | Encounter Summary ---
:1945 [place] [address] Care Team Providers Name Role Phone France Lam MD Primary Care Provider Encounter Details Date Type Department Care Team Description 11/29/2019 Telephone Cardiovascular [facility] Silvio piedra MD 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
--- OUTSIDE RECORDS SUMMARY | 2022-03-23 11:06 | XMS_ITS | Encounter Summary ---
:1945 [place] [address] Care Team Providers Name Role Phone France Lam MD Primary Care Provider Reason for Visit Auth/Cert Specialty Diagnoses / Procedures Referred By Contact Refer red To Contact Diagnoses STEMI (ST elevation myocardial infarction) STEMI Procedures CARDIAC CATHETERIZATION Referral ID Status Reason Start Date Expiration Date Visits Requ ested Visits Authorized [id number] 1 1 Encounter Details Date Type Department Care Team Description 11/29/2019 Surgery Hair Worker Gretchen Corral, CARDIAC CATHETERIZATION [facility] [place] [address] [place] [id number] [phone] (Wo rk) Social History Tobacco Use Types [...] Luis Salinas Patient Age: 74 y.o. Language: Togolese Race: White Ethnicity: Not nor Admit date: [...] months on: antiplatelet therapy at discretion of stunt double - Repeat TTE in 3 months to reassess LV function - Repeat BMP in 1-2 weeks given recent start lisinopril - Referred to lipid clinic for consideration of PCSK-9 inhibitor given STEMI with intolerance of statins - Started on amiodarone this admission for recurrent rapid atrial flutter with rates ~170, recommendcontinued assessment of necessity of rhythm control strategy with stunt double - Amiodarone monitoring recommendations as below - [...] please contact your inpatient physician through the [facility] Material Requirements Worker . Issues after hours and on weekends [...] and Compazine. He was transferred directly to [facility] via [facility] for further management. Patient had an emergent PCI with 3 MACARIO stents placed to his RCA, with mild disease of LCX (report pending) at [facility]. He was found to be persistently hypotensive requiring Levo up to 10mcg/min. He was transferred to [facility] after the cath procedure. Bedside RHC showed CI 2.12, PAWP 11, PAP 38/15 indicating hypovolemic state. He received 1L bolus of NS with improvement of his blood pressure to 124/61. History of PAD, HLD - had side reactions to statins - so taking niacin and red rye grain. Chronic active smoker with more than 65 pack years. Family history of [place] in father and two uncles. He's takingbaby [...] ip as described above. On arrival at [facility] he was taken for cardiac cath where [...] priority for the procedure was Emergent. [facility] was STEMI (after [...] below. Electronically signed by: Angel Luis Bar[facility]za [facility] ([phone]), at 11/30/2019 5:[address] Angiogram [place] (Exam End: 11/30/2019 4:36 PM) Impression Head CT: Stable hemorrhage in the region of the left optic tract. CTA: Negative exam. No abnormal vasculature in the area of hemorrhage. Thank you for letting us participate in the care of this patient. For questions regarding this report, please contact the number below. Brain wo Contrast (Exam End: 12/01/2019 7:25 [...] number below. Chest One View (Exam End: 11/30/2019 8:20 [...] ??? Penicillins Pt doesn't remember reaction ??? Ltdfbxr-Izh-Tne Reductase Inhibitors Stiff neck, upset stomach, back [...] medications at another hospital and then at [facility] you had a stent placed in a [...] FOR ONE MONTH AND THEN STOP. Your stunt double may tell you to start this medication again after one year. Clopidogrel (Plavix) 75 mg daily - This medication will help prevent clots from forming in your blood, which will help protect the stent that was placed in your heart vessel. TAKE THIS FOR ONE YEAR ANDTHEN DISCUSS WITH YOUR INSURANCE ADVISOR WHETHER TO STOP. Amiodarone 400mg twice daily [...] follow up: Your primary care provider and stunt double will manage your blood thinner (apixaban). You do not need lab monitoring of this medication. Diet: Please consume a healthy diet low in cholesterol Follow up Appointments: 12/10/2019 at 3:10PM with PCP Angel Luis Lott Future Appointments Date Time Provider Department Center 12/23/2019 1:30 PM Alfreda Salas APRN [facility] [id number] 12/26/2019 9:40 AM Merlin Sanchez MD [facility] CARD 4A [facility] 12/30/2019 3:40 PM Gretchen Yoon MD [address] Future Appointments and Orders Future Appointments and Orders Future Appointments Provider Department Dept Phone 12/23/2019 1:30 PM Alfreda Salas APRN Neurosurgery at [facility] Arrive at: Home [phone] Please do not come in for this visit. Your provider will call you at the number you provided. 12/26/2019 9:40 AM Merlin Sanchez MD Cardiology at [facility] Arrive at: Home [phone] Please do not come in for this visit. Your provider will call you at the number you provided. 12/30/2019 3:40 PM Gretchen Yoon MD Cardiology at [facility] Arrive at: Home [phone] Please do not come in for this visit. Your provider will call you at the number you provided. Future Orders Complete By Expires Referral to Cardiac Rehab [[id number] Custom] As directed Process Instructions: If no progress note charted, please enter Clinical details in comments. Scheduling Instructions: Questions: My question or request is: STEMI. Cardiac rehab at [facility] Referral to [facility] [REF43 Custom] As directed Process Instructions: If no progress note charted, please enter Clinical details in comments. Scheduling Instructions: Questions: My question or request is: patient with inferior stemi with history of statin allergy (rash) - please evaluate for psck9 inhibitor. Referral to Home Health - at DISCHARGE [ADS3280 CPT(R)] As directed Process Instructions: Scheduling Instructions: Comments: DOCUMENTATION FOR VNA SERVICES PATIENT'S LOCATION: Angel Luis Corcoran [address] [address] (home) Glass Loading Equipment Tender's Name: Self In discussion with the attending physician, it is certified that this patient is under his/her care and that MD, or an EVENT MANAGER, OFFSHORING MANAGER, or PA who is working directly with him/her, had a cdqw-pv-cixx encounter that meets the physician fadg-cg-dbor encounter requirements with this patient on 12/07/2019. [...] for managing ADLs. HOME HEALTH CARE AGENCY: [facility], PHONE: [phone] FAX: [phone] Start of care: 24-48 hours after hospital [...] MD [address] / [place] [id number] All A agencies which cover the area of patient's residence have been reviewed, either verbally or in writing, and patient/family have chosen the home health care agency noted. Questions: Agency name and contact information: [facility] Patient location post discharge: Home What services are requested: Registered Nurse Physical Therapy Occupational Therapy Start date: Responsible MD post discharge contact info: PCP Your PCP: France Lam MD [phone] For questions regarding this document or issues relating to this hospitalization on the Cardiology Service, please contact your inpatient physician through the [facility] Material Requirements Worker . Issues after hours and on weekends will be handled by the Core Winder on-call. Patient Instructions: Neurology Your Diagnosis: Left [...] follow-up appointment in the neurology clinic at [facility]. See below for the appointment [...] 1:30 PM Alfreda Salas APRN Neurosurgery at [facility] Arrive at: Home [phone] Please do not come in for this visit. Your provider will call you at the number you provided. 12/26/2019 9:40 AM Merlin Sanchez MD Cardiology at [facility] Arrive at: Home [phone] Please do not come in for this visit. Your provider will call you at the number you provided. 12/30/2019 3:40 PM Gretchen Yoon MD Cardiology at [facility] Arrive at: Home [phone] Please do not come in for this visit. Your provider will call you at the number you provided. Future Orders Complete By Expires Referral to Cardiac Rehab [[id number] Custom] As directed Process Instructions: If no progress note charted, please enter Clinical details in comments. Scheduling Instructions: Questions: My question or request is: STEMI. Cardiac rehab at [facility] Referral to [facility] [REF43 Custom] As directed Process Instructions: If no progress note charted, please enter Clinical details in comments. Scheduling Instructions: Questions: My question or request is: patient with inferior stemi with history of statin allergy (rash) - please evaluate for psck9 inhibitor. Referral to Home Health - at DISCHARGE [IRQ4328 CPT(R)] As directed Process Instructions: Scheduling Instructions: Comments: DOCUMENTATION FOR VNA SERVICES PATIENT'S LOCATION: [address] [address] (home) Glass Loading Equipment Tender's Name: Self In discussion with the attending physician, it is certified that this patient is under his/her care and that MD, or an EVENT MANAGER, OFFSHORING MANAGER, or PA who is working directly with him/her, had a dcnc-gs-ywth encounter that meets the physician xyfe-gf-njdi encounter requirements with this patient on 12/07/2019. [...] for managing ADLs. HOME HEALTH CARE AGENCY: [facility], PHONE: [phone] FAX: [phone] Start of care: 24-48 hours after hospital [...] MD [address] / [place] [address] All A agencies which cover the area of patient's residence have been reviewed, either verbally or in writing, and patient/family have chosen the home health care agency noted. Questions: Agency name and contact information: [facility] Patient location post discharge: Home What services are requested: Registered Nurse Physical Therapy Occupational Therapy Start date: Responsible MD post discharge contact info: PCP Discharge References/Attachments Atrial Fibrillation (Togolese) Cardiac Rehabilitation (Togolese) Heart Failure (Togolese) Heart Failure: Limiting Sodium (Togolese) Hemorrhagic Stroke: General Info (Togolese) Smoking: Stopping (Togolese) Stroke Rehabilitation: General Info (Togolese) Pulmonary Embolism (Togolese) Riki Stevens MD PGY-3, Internal Medicine Cardiology S2, #1938 Associated attestation - Paris Dodd MD - 12/09/2019 4:44 PM EDT Cardiology Attending Discharge Addendum I was the assigned attending stunt double for this clinical encounter. For the purposes [...] complications include novel onset, paroxysmal atrial fibrillation [[id number]: 5] & L-sided diplopia with potential hemineglect [...] My contact information: Paris Matt MD MPH [address], [place] [address] (office); Pager #[phone] Email: documented in this encounter Discharge Instructions Patient InstructionsFiRiki de jesus MD - 12/02/2019 9:56 AM EDT Images from the original note were not included. Why you were hospitalized: You had a heart attack. You received clot-busting medications at another hospital and then at [facility] you had a stent placed in a [...] FOR ONE MONTH AND THEN STOP. Your stunt double may tell you to start this medication again after one year. Clopidogrel (Plavix) 75 mg daily - This medication will help prevent clots from forming in your blood, which will help protect the stent that was placed in your heart vessel. TAKE THIS FOR ONE YEAR ANDTHEN DISCUSS WITH YOUR INSURANCE ADVISOR WHETHER TO STOP. Amiodarone 400mg twice daily [...] follow up: Your primary care provider and stunt double will manage your blood thinner (apixaban). You do not need lab monitoring of this medication. Diet: Please consume a healthy diet low in cholesterol Follow up Appointments: 12/10/2019 at 3:10PM with PCP Angel Luis Lott Future Appointments Date Time Provider Department Center 12/23/2019 1:30 PM Alfreda Salas APRN [facility] [id number] [facility] 12/26/2019 9:40 AM Merlin Sanchez MD [facility] CARD 4A [facility] 12/30/2019 3:40 PM Gretchen Yoon MD [facility] CARD 4A [facility] Future Appointments and Orders Future Appointments and Orders Future Appointments Provider Department Dept Phone 12/23/2019 1:30 PM Alfreda Salas APRN Neurosurgery at [facility] Arrive at: Home [phone] Please do not come in for this visit. Your provider will call you at the number you provided. 12/26/2019 9:40 AM Merlin Sanchez MD Cardiology at [facility] Arrive at: Home [phone] Please do not come in for this visit. Your provider will call you at the number you provided. 12/30/2019 3:40 PM Gretchen Yoon MD Cardiology at [facility] Arrive at: Home [phone] Please do not come in for this visit. Your provider will call you at the number you provided. Future Orders Complete By Expires Referral to Cardiac Rehab [[id number] Custom] As directed Process Instructions: If no progress note charted, please enter Clinical details in comments. Scheduling Instructions: Questions: My question or request is: STEMI. Cardiac rehab at [facility] Referral to [facility] [REF43 Custom] As directed Process Instructions: If no progress note charted, please enter Clinical details in comments. Scheduling Instructions: Questions: My question or request is: patient with inferior stemi with history of statin allergy (rash) - please evaluate for psck9 inhibitor. Referral to Home Health - at DISCHARGE [[id number] CPT(R)] As directed Process Instructions: Scheduling Instructions: Comments: DOCUMENTATION FOR VNA SERVICES PATIENT'S LOCATION: [address] [address] (home) Glass Loading Equipment Tender's Name: Self In discussion with the attending physician, it is certified that this patient is under his/her care and that MD, or an EVENT MANAGER, OFFSHORING MANAGER, or PA who is working directly with him/her, had a qkms-tl-dwhc encounter that meets the physician jtzz-vh-ysmi encounter requirements with this patient on 12/07/2019. [...] for managing ADLs. HOME HEALTH CARE AGENCY: [facility], PHONE: [phone] FAX: [phone] Start of care: 24-48 hours after hospital [...] MD [address] / [place] [address] All A agencies which cover the area of patient's residence have been reviewed, either verbally or in writing, and patient/family have chosen the home health care agency noted. Questions: Agency name and contact information: [facility] Patient location post discharge: Home What services are requested: Registered Nurse Physical Therapy Occupational Therapy Start date: Responsible MD post discharge contact info: PCP Your PCP: France Lam MD [phone] For questions regarding this document or issues relating to this hospitalization on the Cardiology Service, please contact your inpatient physician through the [facility] Material Requirements Worker . Issues after hours and on weekends will be handled by the Core Winder on-call. Patient Instructions: Neurology Your Diagnosis: Left [...] follow-up appointment in the neurology clinic at [facility]. See below for the appointment time. If you do not have an appointment, you will be called with a time/date for this appointment. ??? Primary Care Provider: Please follow up with your Primary Care Provider within one to 2 weeks ofdischarge. AttachmentsThe following attachments cannot be sent through Care Everywhere. Atrial Fibrillation (Togolese)Cardiac Rehabilitation (Togolese)Heart Failure (Togolese)Heart Failure: Limiting Sodium (Togolese)Hemorrhagic Stroke: General Info (Togolese)Smoking: Stopping (Togolese)Stroke Rehabilitation: General Info (Togolese)Pulmonary Embolism (Togolese)documented in this encounter Medications at Time of [...] consulted in the interim. Vikash Rodriguez Pager: [phone] Paris Dodd MD - 12/08/2019 8:57 AM [...] complications include novel onset, paroxysmal atrial fibrillation [[id number]: 5] & L-sided diplopia with potential hemineglect [...] consulted in the interim. Vikash Rodriguez Pager: [phone] Paris Dodd MD - 12/07/2019 9:55 AM [...] complications include novel onset, paroxysmal atrial fibrillation [NHR9KR4IYYQ: 5] & L-sided diplopia with potential hemineglect [...] complications include novel onset, paroxysmal atrial fibrillation [QFZ2AB2ICTS: 5] & L-sided diplopia with potential hemineglect [...] complications include novel onset, paroxysmal atrial fibrillation [POM6VS2XYOF: 5] & L-sided diplopia with potential hemineglect [...] today; additional complications include paroxysmal atrial fibrillation [WEL1PY0TWOE: 4] c/b possible cardioembolic stroke, ICH from [...] length from neck/greatest diameter to back wall: KOSOVAN 91, CAU 13: 19 mm CORTES 1, [...] a non-culprit artery. S/P DESx3 in the kqxnzyrd-zd-edhuoi RCA. Aspiration thrombectomy performed, and integrellin bolus [...] complications include novel onset, paroxysmal atrial fibrillation [CWK0TN6ZQWA: 5] & L-sided diplopia with potential hemineglect [...] R occipital cardioembolic stroke #Paroxysmal Afib with YW2DMIEA1J score of 5 #New segmental bilateral PEs [...] Glasgow MD PGY1, Internal Medicine Cardiology S2, #[id number] Associated attestation - Paris Dodd MD - 12/05/2019 2:59 PM EDT I was the assigned attending stunt double for this clinical encounter. For the purposes [...] 12/04/2019 10:36 AM EDT Office of Care Management(OCM)/Nurse Transitional(CM)/Discharge Planning Service: Cardiology S2 team CM Bernie Alexander,RN,BSN,MA,ACM pgr [phone] Reviewed record and in Cardiology Rounds with MD team,CMs, certified juvenile probation officer, BOOSTER OPERATOR. Pt is anticipated ready for d/c later [...] AD to his PCP and to any [facility] appt for each to have on file. [...] complications include novel onset, paroxysmal atrial fibrillation [XYL2YZ6EFQN: 4] & L-sided diplopia with potential hemineglect [...] a non-culprit artery. S/P DESx3 in the hbhvagki-lm-nrayxa RCA. Aspiration thrombectomy performed, and integrellin bolus [...] complications include novel onset, paroxysmal atrial fibrillation [PCT7KF2DRYU: 5] & L-sided diplopia with potential hemineglect [...] R occipital cardioembolic stroke #Paroxysmal Afib with NV3ISNRX6A score of 5 - No anticoagulation for [...] Glasgow MD PGY1, Internal Medicine Cardiology S2, #4592 I have seen the patient and reviewed [...] in my clinic. Gretchen Yoon MD Pager [phone] Derian Pascual RN - 12/03/2019 9:29 AM [...] Discharge: None Electronically signed: Derian Pascual RN, Nurse Transitional Pgr: [phone] 12/03/2019 9:29 AM Gretchen Yoon [...] complications include novel onset, paroxysmal atrial fibrillation [YYA8JY4AIGP: 4] & L-sided diplopia with potential hemineglect [...] a non-culprit artery. S/P DESx3 in the wegqgzge-dh-umente RCA. Aspiration thrombectomy performed, and integrellin bolus [...] complications include novel onset, paroxysmal atrial fibrillation [WSG2VF2OEWK: 5] & L-sided diplopia with potential hemineglect [...] [facility]. Patient voiced strong will to quit smoking now, understood that we have resources available for help. Plan [P]: --Neurologic-- # Concern for Left-Sided Diplopia, r/o Hemineglect # Concern for CVA, last-known well 11/29/19 - MRI showed possible cardioembolic stroke #Afib with HE1JMIBD8J score of 5 - Stroke Team Consulted; [...] Anticoagulation/Arrhythmia # Novel Onset, Paroxsymal Atrial Fibrillation [[id number]: 5] - Hold off anticoagulation for at [...] w straight cath prn # Nutrition - [facility] Diet, 2g Na. -- Hematology/Oncology-- # Mild [...] Glasgow MD PGY1, Internal Medicine Cardiology S2, #4672 I have seen the patient and reviewed the resident's above history and I agree with the details as written. The assessment and plan were formulated in discussion with me and I agree with them as documented. Gretchen Yoon MD Pager [phone] Raul Hein RN - 12/03/2019 5:55 AM [...] Negative mcL Appearance UA Clear Clear Spec [place] UA 1.026 1.006 - 1.030 Color UA [...] PGY3 Neurology Resident 12/01/2019 Vascular Neurology Pager [phone] Neurology Attending Attestation I evaluated the patient [...] documented. Deepthi Roman MD Vascular Neurology Standard [facility] Swallow Screen: This screen is to be [...] diet as medical provider deems appropriate. Consider STAMP CLASSIFIER consult for full evaluation and diet recommendations. [...] complications include novel onset, paroxysmal atrial fibrillation [ODE9FM0OCZO: 4] & L-sided diplopia with potential hemineglect [...] a non-culprit artery. S/P DESx3 in the dwnqbabh-rl-efyesq RCA. Aspiration thrombectomy performed, and integrellin bolus [...] who was admitted for inferior STEMI [s/p MACAROI to RCA x3, residual LCx disease - non-culprit artery; s/p lytics] with clinical course complicated by RV failure manifesting as cardiogenic shock, for which ionotropic support to be initiated today; additional complications include novel onset, paroxysmal atrial fibrillation [XZM6HQ2LBCY: 5] & L-sided diplopia with potential hemineglect [...] Anticoagulation/Arrhythmia # Novel Onset, Paroxsymal Atrial Fibrillation [BPU1SW6ORWA: 5] - Hold off anticoagulation - pending [...] tamsulosin d/t low BP. # Nutrition - [facility] Diet -- Hematology/Oncology-- # Mild Thrombocytopenia, unclear [...] Glasgow MD PGY1, Internal Medicine Cardiology S2, #6294 I have seen the patient and reviewed [...] the ICU team. Gretchen Yoon MD Pager [phone] Natalia Claros APRN - 12/02/2019 8:38 AM [...] - We are signing off. Please page [phone] with any questions or concerns. For questions please call NSGY pager [phone] Natalia Claros APRN 12/02/2019 8:38 AM Clinical Documentation Improvement: Active Hospital Problems Diagnosis ??? Acute ST elevation myocardial infarction (STEMI) of inferior wall ??? Intracranial hemorrhage ??? Hyperlipidemia ??? Tobacco abuse ??? Claudication from peripheral vascular disease, left Resolved Hospital Problems No resolved problems to display. Tello Hsu, HATCHERY SUPERVISOR - 12/02/2019 2:06 AM EDT 12/01/192009 Oxygen [...] Scan in afternoon. Upon arrival back in [facility] placed on low flow NC at 4 [...] complications include novel onset, paroxysmal atrial fibrillation [LVL9IJ8ODMK: 4] & L-sided diplopia with potential hemineglect for which CVA evaluationto be pursued. Active Problems/Subjective: - 11/28: admitted for inferior STEMI, RV failure requiring pressor - got lytics, aspirin and plavix load, heparin gtt, and eptifibatide. 3 MACARIO stents to RCA. [place] cath - low wedge & CVP so [...] a non-culprit artery. S/P DESx3 in the eklupwpz-fx-wyitfj RCA. Aspiration thrombectomy performed, and integrellin bolus [...] complications include novel onset, paroxysmal atrial fibrillation [WTY5XN5HJJD: 4] & L-sided diplopia with potential hemineglect [...] Anticoagulation/Arrhythmia # Novel Onset, Paroxsymal Atrial Fibrillation [PHT9BR1UYAE: 4] - Obtain: TTE - Pending CVA [...] tamsulosin d/t low BP. # Nutrition - [facility] Diet -- Hematology/Oncology-- # Mild Thrombocytopenia, unclear [...] MD, PGY1 PGY3, Internal Medicine Cardiology S2, #1107 I have seen the patient and reviewed [...] down the line. Gretchen Yoon MD Pager [phone] ?? Gretchen Yoon MD Pager [phone] Natalia Claros APRN - 12/01/2019 1:33 AM [...] per primary team For questions please call blabfeed pager [phone] Natalia Claros APRN 12/01/2019 7:42 AM Clinical Documentation Improvement: Active Hospital Problems Diagnosis ??? Acute ST elevation myocardial infarction (STEMI) of inferior wall ??? Intracranial hemorrhage ??? Hyperlipidemia ??? Tobacco abuse ??? Claudication from peripheral vascular disease, left Resolved Hospital Problems No resolved problems to display. Tello Hsu, HATCHERY SUPERVISOR - 11/30/2019 8:44 PM EDT Respiratory Therapy [...] EDT Narrative:Visited in response to request for Electrostatic Paint Operator services. Pt was awake, alert, oriented and in bed. Assessment:Patient coping positively with stresses of illness/hospitalization at this time. Pt says that he is hoping to get better and pt is living with and has children and grandchildren. Pt haspurpose of life and has reason to get getter and to be with family. Outcome: Provided emotional and spiritual support and encouraging presence. Electrostatic Paint Operator services accepted.Conversation to build trusting relationship.Provided [...] complications include novel onset, paroxysmal atrial fibrillation [[id number]: 4] & L-sided diplopia with potential hemineglect for which CVA evaluationto be pursued. Active Problems/Subjective: - Overnight, CVP < 12 for which a total of 1 L IVF provided - Today AM, patient complains of subjectively reported, left-sided hemineglect with floaters and diplopia [see: exam]. - Otherwise, c/o neck pain 2/2 R IJ [place] & L radial A line. Otherwise, denies [...] a non-culprit artery. S/P DESx3 in the wuzqzkwo-lz-fswilo RCA. Aspiration thrombectomy performed, and integrellin bolus [...] complications include novel onset, paroxysmal atrial fibrillation [[id number]: 4] & L-sided diplopia with potential hemineglect [...] Anticoagulation/Arrhythmia # Novel Onset, Paroxsymal Atrial Fibrillation [[id number]: 4] - Obtain: TTE to confirm rhythm [...] tamsulosin d/t low BP. # Nutrition - [facility] Diet -- Hematology/Oncology-- # Mild Thrombocytopenia, unclear [...] down the line. Gretchen Yoon MD Pager [phone] Paola Capps RN - 11/30/2019 6:57 AM EDT PT still requiring 4 of levo, several attempts to titrate down (maps in 70;s) But maps would drop toless than 65. Pt very restless in bed Raising and lowering head denies pain . Integrillin stopped [id number] when bottle complete , urine tea colored [...] PCP: France Lam MD PCP phone #: [phone] Marketing Proposal Coordinator: None ID/Chief Complaint: Chest pain History of [...] and Compazine. He was transferred directly to [facility] via [facility] for further management. Patient had an emergent PCI with 3 MACARIO stents placed to his RCA, with mild disease of LCX (report pending) at [facility]. He was found to be persistently hypotensive requiring Levo up to 10mcg/min. He was transferred to [facility] after the cath procedure. Bedside RHC showed CI 2.12, PAWP 11, PAP 38/15 indicating hypovolemic state. He received 1L bolus of NS with improvement of his blood pressure to 124/61. History of PAD, HLD - had side reactions to statins - so taking niacin and red rye grain. Chronic active smoker with more than 65 pack years. Family history of MN in father and two uncles. He's takingbaby [...] ??? Penicillins Pt doesn't remember reaction ??? Opureeo-Kga-Osi Reductase Inhibitors Stiff neck, upset stomach, back pain Family History: Mother: Father: [place] 2 Uncles with MIs Social History: Tobacco: Current active smoker 1 ppd. 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 Vitals: Last value Range [...] in the last 7068 hours. Invalid input(s): [id number] Heme: No results for input(s): LDH, HAPTOGLOBIN, [...] OSH prior to transfer and PCI at [facility]. Massive inferior STEMI with troponin level 20, currently in CVCC due to pressor requirement. BedsideRHC demonstrated evidence of elevated right sided heart failure, but his wedge was wnl. He received 1L bolus with improvement of his blood pressure and reduction of his pressor requirement. PLAN: Admit to Cardiology, S2 Team Pager # [phone] #Inferior STEMI, LEYLA 149 - Resolving EKG [...] inferior STEMI s/p lytic therapy. Transferred to [facility] and underwent successful PCI of the RCA with MACARIO x3. Gretchen Yoon MD Pager [phone] documented in this encounter Procedure Notes Juventino [...] to the planned procedure. Hand Hygiene: The database security administrator did perform hand hygiene prior to arterial [...] a suspected line-associated infection. Location of Procedure: [facility] Risks and Benefits: The risks and benefits [...] to the planned procedure. Hand Hygiene: The database security administrator did perform hand hygiene prior to line [...] side:right An Introducer (PSI Kit) was used. [place]. Insertion Side: right. Insertion Site: internal jugular. Catheter Details: Number of Lumens: 1 Catheter Type: heparin-coated The line was placed over a guidewire. Confirmation of Venous Placement: Venous placement was confirmed by transducing the pressure. Introducer Insertion Attempts: 1 Comments: Floating the [place] Catheter Attempts: 1 Comments: Sterile Dressing: Biopatch [...] better pt back in SR. Please page [phone] for any more cares or concerns Plan [...] complications include novel onset, paroxysmal atrial fibrillation [[id number]: 5]& L-sided diplopia with potential hemineglect for [...] Total Evaluation Minutes, Occupational Therapy: 10 Pager: [phone] FRANCINE Nuñez Occupational Therapy Rehabilitation Department Plan [...] -- -- Score 60 -- -- OTHER Ebyer Fall Risk High -- -- Restraint Interventions [...] complications include novel onset, paroxysmal atrial fibrillation [[id number]: 5] & L-sided diplopia with potential hemineglect [...] hand rails). Baseline Mobility: Independent. Drives. 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 Time IN / OUT: 4034-6271 Total Evaluation Minutes, Physical Therapy: 15(gtx1) Barbara Baldwin, PT Pager: [phone] Physical Therapy Inpatient Rehabilitation Department Plan of [...] he receives all he needs through the [facility]. Consult refused. Romain Tran, MSN, RN-, [facility] Tobacco Cellulose Insulation Helper [facility] Pager #[phone] Plan of Care - Romain Oglesby OT [...] complications include novel onset, paroxysmal atrial fibrillation [[id number]: 5] & L-sided diplopia with potential hemineglect [...] and measurable assessment of functional outcome. Pager: [phone] ROMAIN OGLESBY OT 12/03/2019 Occupational Therapy Rehabilitation [...] in an outpatient cardiac rehabilitation program at [facility] was discussed. Patient agrees to a referral to this program. His has been a cardiac rehab patient at [facility] and he is familiar with the [...] complications include novel onset, paroxysmal atrial fibrillation [UEZ1GE2VQFV: 5] & L-sided diplopia with potential hemineglect [...] hand rails). Baseline Mobility: Independent. Drives. 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 Assessment: Angel Lusi Salinas was seen today for physical therapy [...] in this evaluation. Time IN / OUT: 8645-2892 Total Evaluation Minutes, Physical Therapy: 25(eval, gtx1) Barbara Baldwin, PT Pager: [phone] Physical Therapy Inpatient Rehabilitation Department Consult Note [...] (L) 12/01/2019 Nutritional Intake Current bed: [facility] A[facility]R. Assessment: Patient is with an area [...] Please contact JOHANNA NOBLES RN on pager [phone] or the wound care team at [phone] or pager [phone] skin and wound care concerns or questions. [...] Salinas would be surrogate decision maker per [place] surrogate decision making law. Any patient receiving carspousee at [facility] must abide by [place] law. The hierarchy for surrogate decisionmaking is: [...] (i) The agent with financial power of managing attorney or a conservator appointed in accordance [...] Insurance: N/A Prescription Coverage: Yes Preferred Pharmacy: [place] Other: No Primary Care Provider: France Lam MD [phone] Patient/Caregiver Goals of Treatment: Return home Potential Needs for Transition of Care: Rehab/SNF: Based on discussions with the multi-disciplinary healthcare team, the patient would benefit from SNF level of care at discharge. ?? I have met with the patient to discuss discharge planning needs. I have provided the [facility], Officeof Care Management letter from the Transportation Consultant pertaining to rehab referrals. I have also provided a letter describing our affiliations within the [facility] and educated them about their [...] patient [facility]: ?? [facility] [address] [place] [address] ?? [address]. [address] , [place] [address] Note routed to Labor Mediator who will communicate referrals to facilities and provide any required information. Home Health: If therapies recommend home w/ VNA, the patient has been provided a list of Home Health Agencies/DME vendors which serve their preferred geographic area. A letter describing our affiliations was reviewed with them and they were educated about their right to choose where referrals are placed. Patient requests referral to [facility]. PHONE: [phone] FAX: [phone] Referral routed to the Labor Mediator for matching with agency/vendor and to provide [...] Insured w/ Medicare. Gets medications filled at [facility] in [place], [place]. Son to transport at discharge Plan: Discharge dispo depending on patient's physical recovery; SNF vs home w/ VNA. A member of the Care Management team will continue to monitor progress, follow for continuity of care and assist with transition of care planning. Derian Pascual RN Pager: [phone] Plan of Care - Estefani Encarnacion RN [...] ??? Penicillins Pt doesn't remember reaction ??? Neczdzp-Hyx-Zwd Reductase Inhibitors Stiff neck, upset stomach, back [...] personally reviewed / reviewed with radiologist Impression: Ange lLuis Salinas is a 74 y.o. male with [...] noncontrast head CT and CT of the [place] of [place] at 1600 hrs. We will [...] vision concerning for stroke. Patient presented to [facility] in transfer for a STEMI after presenting [...] ??? Penicillins Pt doesn't remember reaction ??? Vezzaqk-Xob-Lny Reductase Inhibitors Stiff neck, upset stomach, back [...] file Gets together: Not on file Attends druze service: Not on file Active member of [...] L Elbow flexion 5/5 R, 5/5 L Lead Game Designer LE: 5/5 R, 5/5 L Hip flexion [...] PGY3 Neurology Resident 11/30/2019 Vascular Neurology Pager [phone] Standard [facility] Swallow Screen: This screen is to be [...] diet as medical provider deems appropriate. Consider STAMP CLASSIFIER consult for full evaluation and diet recommendations. [...] Afib admitted s/p thrombolysis and Cath-Stent to [facility] who developed R sided [...] hours. Evan Mejia MD Department of Neurology [facility] Brief Op Note - Gretchen Yoon MD - 11/29/2019 8:38 PM EDT Brief Operative Note Patient Name: Angel Luis Salinas : [id number] MR#: [id number] Case Date: 11/29/2019 Surgeon: Surgeon(s) and Role: * Gretchen Yoon MD - Primary * Aidan Ward MD - Fellow Preoperative diagnosis: Inferior STEMI Postoperative diagnosis: Inferior STEMI Procedure(s) (LRB): CARDIAC CATHETERIZATION (N/A) Findings: Discrete 90% stenosis in the prox-to-mid RCA. Severe diffuse disease in the distal vessel. Discrete LCX stenosis in a non-culprit artery. S/P DESx3 in the phtqlfjf-ae-rtchoa RCA. Aspiration thrombectomy performed, and integrellin bolus [...] are i n the results section. CT [facility] OF [place] W STAT 11/30/2019 4:36 Res [...] athologist Signature Potassium 3.9 3.5 - 5.0 [facility] mmol/L [facility] Comment: Please note: ??Patients with [...] Organization Address City/State/ZIP [place] [address] (ABNORMAL) Hemogram (12/08/2019 12:39 PM EDT) Analysis Performed At Patho logist Time Signature WBC 9.9 (H) 4.0 - 9.5 [facility](3[facility] LABORATORY RBC 4.51 (L) 4.58 - [place] OLIVIA 5.54 [facility] x10(6)/[facility] LABORATORY Hemoglobin 13.0 (L) 13.7 - [place] 16.5 gm/dL [facility] Hematocrit 40.5 40.5 - [place] 48.5 % [facility] MCV 89.8 82.9 - [facility] OLIVIA 93.1 [facility] LABORATORY MCH 28.8 27.5 - [place] 32.1 pg [facility] MCHC 32.1 32.0 - [place] 35.7 gm/dL [facility] Platelets 214 145 - 357 [facility] x10(3)/[facility] LABORATORY RDWSD 49.2 (H) 36.0 - [place] 45.0 [facility] LABORATORY RDWCV 15.1 (H) 11.4 - [facility] 13.8 % [facility] MPV 12.1 7.6 - 12.9 [facility] OLIVIA [facility] LABORATORY nRBC % Auto 0.0 % [facility] nRBC Abs Auto 0.000 0.000 - [facility] 0.000 [facility] x10(3)/[facility] LABORATORY Specimen Anatomical Collection Method Collection Time Receive d Time (Source) Location / / Volume Laterality Blood specimen 12/08/2019 12:39 0 (specimen) PM EDT 12:47 PM EDT Resulting Agency Comment Spec In Lab Gretchen Yoon MD HEMATOLOGY ORDERABLES Performing Organization Address City/State/ZIP Code Phon e Number [address] Hepatic Function Panel (12/08/2019 6:28 AM EDT) athologist Signature Total Protein 6.6 6.1 - 8.0 [place] gm/dL [facility] Albumin 3.2 3.2 - 5.2 [place] gm/dL [facility] AST 18 0 - 39 [place] unit/L [facility] ALT 13 0 - 55 [facility] OLIVIA unit/L [facility] Alk Phos 64 40 - 130 [facility] OLIVIA unit/L [facility] Total 0.4 0.2 - 1.3 [place] Bilirubin mg/dL [facility] Bili, Direct 0.1 0.0 - 0.3 [facility] OLIVIA mg/dL [facility] Specimen Anatomical Collection Method Collection Time Receive d Time (Source) Location / / Volume Laterality Blood specimen Venous Draw / 12/08/2019 6:28 AM 2019 6:36 (specimen) Unknown EDT AM EDT Resulting Agency Comment Spec In Lab Riki Stevens MD CHEMISTRY ORDERABLES Performing Organization Address City/[facility]/ZIP Code Phon e Number [address] (ABNORMAL) TSH (12/08/2019 6:28 AM EDT) athologist Signature TSH 5.27 (H) 0.27 - 4.20 [facility] mcIU/mL [facility] Specimen Anatomical Collection Method Collection Time Receive d Time (Source) Location / / Volume Laterality Blood specimen Venous Draw / 12/08/2019 6:28 AM 2019 6:36 (specimen) Unknown EDT AM EDT Resulting Agency Comment Spec In Lab Darrell Glasgow MD CHEMISTRY ORDERABLES Performing Organization Address City/[facility]/ZIP Code Phon e Number [address] Potassium (12/08/2019 6:28 AM EDT) P athologist Signature Potassium 4.2 3.5 - 5.0 [facility] mmol/L [facility] Comment: Please note: ??Patients with [...] Organization Address City/State/ZIP [place] [address] (ABNORMAL) Differential, Automated (12/08/2019 12:43 AM EDT) Patholo gist Method Time Signature Neutrophils % 60.7 % [facility] Neutr Abs (ANC) 6.81 (H) 1.70 - [facility] 6.10 [facility] x10(3)/[facility] LABORATORY Lymphocytes % 23.4 % [facility] Lymphocytes Abs 2.6 0.9 - 3.2 [facility] x10(3)/[facility] LABORATORY Monocytes % 10.0 % [facility] Monocyte Abs 1.1 (H) 0.3 - 0.9 [facility] x10(3)/[facility] LABORATORY Eosinophils % 3.7 % [facility] Eosinophils Abs 0.4 0.0 - 0.4 [facility] x10(3)/[facility] LABORATORY Basophils % 1.2 % [facility] Basophils Abs 0.1 0.0 - 0.1 [facility] x10(3)/[facility] LABORATORY Immature Gran % 1.00 % [facility] Comment: Immature granulocytes(IG's)percentage an d absolute count will include metamyelocytes, myelocytes, and promyelo cytes. Blood smears from CBCs yielding IG's will be scanned manually for ana nagy. If this scan disagrees with the automated IG or if promyelocytes are not ed, a manual differential will be performed. Pita Gran Abs 0.11 (H) 0.00 - 0.04 x10(3)/[facility] LABORATORY Specimen Anatomical Collection Method Collection Time Receive d Time (Source) Location / / Volume Laterality Blood specimen 12/08/2019 12:43 0 (specimen) AM EDT 12:52 AM EDT Resulting Agency Comment Spec In Lab Riki Stevens MD HEMATOLOGY ORDERABLES Performing Organization Address City/State/Z[place] [address] (ABNORMAL) Hemogram (12/08/2019 12:43 AM EDT) Analysis Performed At Patho logist Time Signature WBC 11.2 (H) 4.0 - 9.5 [facility] x10(3)/[facility] LABORATORY RBC 4.46 (L) 4.58 - [facility] OLIVIA 5.54 [facility] x10(6)/[facility] LABORATORY Hemoglobin 13.1 (L) 13.7 - [facility] 16.5 gm/dL [facility] Hematocrit 40.5 40.5 - [facility] OLIVIA 48.5 % [facility] MCV 90.8 82.9 - [facility] 93.1 [facility] LABORATORY MCH 29.4 27.5 - [facility] OLIVIA 32.1 pg [facility] MCHC 32.3 32.0 - [facility] OLIVIA 35.7 gm/dL [facility] Platelets 215 145 - 357 [facility] x10(3)/[facility] LABORATORY RDWSD 49.8 (H) 36.0 - [facility] OLIVIA 45.0 [facility] LABORATORY RDWCV 15.2 (H) 11.4 - [facility] OLIVIA 13.8 % [facility] MPV 12.3 7.6 - 12.9 [facility] LABORATORY nRBC % Auto 0.0 % [facility] nRBC Abs Auto 0.000 0.000 - [facility] Dely 0.000 [facility] x10(3)/[facility] LABORATORY Specimen Anatomical Collection Method Collection Time Receive d Time (Source) Location / / Volume Laterality Blood specimen 12/08/2019 12:43 0 (specimen) AM EDT 12:52 AM EDT Resulting Agency Comment Spec In Lab Riki Stevens MD HEMATOLOGY ORDERABLES Performing Organization Address City/State/ZIP Code Phon e Number [address] Magnesium (12/08/2019 12:43 AM EDT) athologist Signature Magnesium 1.01 0.69 - 1.07 [facility] mmol/L [facility] Specimen Anatomical Collection Method Collection Time Receive d Time (Source) Location / / Volume Laterality Blood specimen 12/08/2019 12:43 0 (specimen) AM EDT 12:52 AM EDT Resulting Agency Comment Spec In Lab Gretchen Yoon MD CHEMISTRY ORDERABLES Performing Organization Address City/State/[place] [address] (ABNORMAL) BMP w/fasting Glucose (12/08/2019 12:43 AM EDT) P athologist Signature Glucose 106 (H) 65 - 99 [facility] Fasting mg/dL [facility] Comment: ?Fasting* Glucose Interpretive C [...] of Diabetes Mellitus, Position Statement from the [place] [employer]. ??Diabete s Care, Volume 33, Supplement 1, Jul 2009 BUN 14 10 - 20 mg/dL [facility] Creatinine 1.16 0.80 - 1.50 mg/dL [facility] LABORATORY Sodium 134 (L) 135 - 145 mmol/L [facility] Potassium 4.0 3.5 - 5.0 mmol/L [facility] Comment: Please note: ??Patients with WBC >100,00 0 may have falsely elevated Potassium levels. ??For accurate Potassium quantif ication in these patients send serum separator tube (gold top) for subsequent determinations. ??Contact the Clinical Chemistry Laboratory if there are any qu estions. Chloride 99 98 - 107 mmol/L [facility] CO2 19 (L) 22 - 31 mmol/L [facility] Anion Gap 16 (H) 5 - 15 mmol/L [facility]ORY Calcium 8.9 8.5 - 10.5 mg/dL [facility] Estimated GFR 62 >=60 mL/min/1.73 m?? [facility] Comment: The eGFR was calculated using the CKD-EP I equation. As with all creatinine based estimates of kidney function, eGFR values calculated with the CKD-EPI equation are not accurate in patients wi th acute kidney failure, extremes of body mass or the acutely ill. [email or web address] eGFR 72 >=60 mL/min/1.73 m?? [facility] Comment: The eGFR was calculated using the CKD-EP I equation. As with all creatinine based estimates of kidney function, eGFR values calculated with the CKD-EPI equation are not accurate in patients wi th acute kidney failure, extremes of body mass or the acutely ill. [email or web address] Specimen Anatomical Collection Method Collection Time Receive d Time (Source) Location / / Volume Laterality Blood specimen 12/08/2019 12:43 0 (specimen) AM EDT 12:52 AM EDT Resulting Agency Comment Spec In Lab Gretchen Yoon MD CHEMISTRY ORDERABLES Performing Organization Address City/State/Z[place] [address] Heparin (unfractionated) Level (12/08/2019 12:43 AM EDT) athologist Signature Heparin UFH 0.60 IU/mL [facility] Comment: Guidelines for therapeutic unfractionate d [...] Organization Address City/State/Z[place] [address] Potassium (12/07/2019 8:39 PM EDT) athologist Signature Potassium 4.1 3.5 - 5.0 [facility] mmol/L [facility] Comment: Please note: ??Patients with [...] Lagos MD CHEMISTRY ORDERABLES Performing Organization Address City/[facility]/[place] [address] Potassium (12/07/2019 4:02 PM EDT) P athologist Signature Potassium 4.0 3.5 - 5.0 [place] mmol/L [facility] Comment: Please note: ??Patients with [...] Yoon MD CHEMISTRY ORDERABLES Performing Organization Address City/[facility]/[place] [address] (ABNORMAL) Hemogram (12/07/2019 4:02 PM EDT) Analysis Performed At Patho logist Time Signature WBC 17.4 (H) 4.0 - 9.5 [place] x10(3)/[facility] LABORATORY RBC 4.58 4.58 - [place] OLIVIA 5.54 [facility] x10(6)/[facility] LABORATORY Hemoglobin 13.5 (L) 13.7 - [place] OLIVIA 16.5 gm/dL [facility] Hematocrit 40.8 40.5 - [place] OLIVIA 48.5 % [facility] MCV 89.1 82.9 - [place] OLIVIA 93.1 [facility] LABORATORY MCH 29.5 27.5 - [place] OLIVIA 32.1 pg [facility] MCHC 33.1 32.0 - [place] OLIVIA 35.7 gm/dL [facility] Platelets 238 145 - 357 [place]IVIA x10(3)/[facility] LABORATORY RDWSD 48.8 (H) 36.0 - [place] OLIVIA 45.0 [facility] LABORATORY RDWCV 15.0 (H) 11.4 - [facility] 13.8 % [facility] LABORATORY MPV 12.2 7.6 - 12.9 [facility] LABORATORY nRBC % Auto 0.0 % [facility] LABORATORY nRBC Abs Auto 0.000 0.000 - MELINA MARSHOLIVIA 0.000 [facility] x10(3)/[facility] LABORATORY Specimen Anatomical Collection Method Collection Time Receive d Time (Source) Location / / Volume Laterality Blood specimen 12/07/2019 4:02 PM 020 4:08 (specimen) EDT PM EDT Resulting Agency Comment Spec In Lab Gretchen Yoon MD HEMATOLOGY ORDERABLES Performing Organization Address City/[facility] [place] [address] EKG 12 Lead (12/07/2019 [...] (Bezet) Calculated P -12 degrees MUSE SYSTEM Van Calculated R 10 degrees MUSE SYSTEM Van Calculated T -138 degrees MUSE SYSTEM Van INTERPRETATION Supraventricular tachycardia MUSE SYSTEM Low voltage [...] athologist Signature Potassium 4.2 3.5 - 5.0 [facility] mmol/L [facility] LABORATORY Comment: Please note: ??Patients with [...] Lagos MD CHEMISTRY ORDERABLES Performing Organization Address City/[facility] [place] [address] Heparin (unfractionated) Level (12/07/2019 11:43 AM EDT) athologist Signature Heparin UFH 0.59 IU/mL [facility] LABORATORY Comment: Guidelines for therapeutic unfractionate [...] Lagos MD HEMATOLOGY ORDERABLES Performing Organization Address [facility]/[place] [address] Heparin (unfractionated) Level (12/07/2019 5:20 AM EDT) P athologist Signature Heparin UFH 0.53 IU/mL [facility] LABORATORY Comment: Guidelines for therapeutic unfractionate [...] Organization Address City/State/[place] [address] (ABNORMAL) Differential, Automated (12/07/2019 5:20 AM EDT) Patholo gist Method Time Signature Neutrophils % 62.4 % [facility] LABORATORY Neutr Abs (ANC) 5.46 1.70 - [facility] 6.10 [facility] x10(3)/[facility] LABORATORY Lymphocytes % 20.3 % [facility] LABORATORY Lymphocytes Abs 1.8 0.9 - 3.2 [facility] x10(3)/[facility] LABORATORY Monocytes % 11.0 % [facility] LABORATORY Monocyte Abs 1.0 (H) 0.3 - 0.9 [facility] x10(3)/[facility] LABORATORY Eosinophils % 4.5 % [facility] LABORATORY Eosinophils Abs 0.4 0.0 - 0.4 [facility] x10(3)/[facility] LABORATORY Basophils % 0.9 % [facility] LABORATORY Basophils Abs 0.1 0.0 - 0.1 [facility] x10(3)/[facility] LABORATORY Immature Gran % 0.90 % [facility] LABORATORY Comment: Immature granulocytes(IG's)percentage an d absolute count will include metamyelocytes, myelocytes, and promyelo cytes. Blood smears from CBCs yielding IG's will be scanned manually for concor dance. If this scan disagrees with the automated IG or if promyelocytes are not ed, a manual differential will be performed. Pita Gran Abs 0.08 (H) 0.00 - 0.04 x10(3)/[facility] LABORATORY Specimen Anatomical Collection Method Collection Time Receive d Time (Source) Location / / Volume Laterality Blood specimen 12/07/2019 5:20 AM 020 5:37 (specimen) EDT AM EDT Resulting Agency Comment Spec In Lab Riki Stevens MD HEMATOLOGY ORDERABLES Performing Organization Address City/State/ZIP Code Phon e Number [place] [id number] HOSPITAL LABORATORY Drive (ABNORMAL) Hemogram (12/07/2019 5:20 AM EDT) Analysis Performed At Patho logist Time Signature WBC 8.7 4.0 - 9.5 [facility] x10(3)/[facility] LABORATORY RBC 4.20 (L) 4.58 - [facility] 5.54 [facility] x10(6)/[facility] LABORATORY Hemoglobin 12.3 (L) 13.7 - [facility] 16.5 gm/dL [facility] LABORATORY Hematocrit 37.4 (L) 40.5 - [facility] 48.5 % [facility] LAB[facility]ATORY MCV 89.0 82.9 - [facility] 93.1 fL [facility] LABORATORY MCH 29.3 27.5 - [facility] 32.1 pg [facility] LABORATORY MCHC 32.9 32.0 - MELINA MONAE 35.7 gm/dL [facility] LABORATORY Platelets 181 145 - 357 MELINA MONAE x10(3)/[facility] LABORATORY RDWSD 47.7 (H) 36.0 - MELINA MONAE 45.0 [facility] LABORATORY RDWCV 14.8 (H) 11.4 - [facility] OLIVIA 13.8 % [facility] LABORATORY MPV 12.3 7.6 - 12.9 MELINA OLIVIA [facility] LABORATORY nRBC % Auto 0.0 % [facility] LABORATORY nRBC Abs Auto 0.000 0.000 - MELINA MONAE 0.000 [facility] x10(3)/[facility] LABORATORY Specimen Anatomical Collection Method Collection Time Receive d Time (Source) Location / / Volume Laterality Blood specimen 12/07/2019 5:20 AM 020 5:37 (specimen) EDT AM EDT Resulting Agency Comment Spec In Lab Riki Stevens MD HEMATOLOGY ORDERABLES Performing Organization Address City/State/ZIP Code Phon e Number [address] Magnesium (12/07/2019 5:20 AM EDT) P athologist Signature Magnesium 0.89 0.69 - 1.07 [facility] mmol/L [facility] LABORATORY Specimen Anatomical Collection Method Collection Time Receive d Time (Source) Location / / Volume Laterality Blood specimen 12/07/2019 5:20 AM 020 5:37 (specimen) EDT AM EDT Resulting Agency Comment Spec In Lab Gretchen Yoon MD CHEMISTRY ORDERABLES Performing Organization Address City/State/ZIP Code Phon e Number [address] (ABNORMAL) BMP w/fasting Glucose (12/07/2019 5:20 AM EDT) P athologist Signature Glucose 100 (H) 65 - 99 [facility]/dL [facility] LABORATORY Comment: ?Fasting* Glucose Interpretive C [...] of Diabetes Mellitus, Position Statement from the [place] [employer]. ??Diabete s Care, Volume 33, Supplement 1, Jul 2009 BUN 14 10 - 20 mg/dL [facility] LABORATORY Creatinine 0.83 0.80 - 1.50 mg/dL [facility] LABORATORY Sodium 135 135 - 145 mmol/L [facility] LABORATORY Potassium 3.8 3.5 - 5.0 mmol/L [facility] LABORATORY Comment: Please note: ??Patients with WBC >100,00 0 may have falsely elevated Potassium levels. ??For accurate Potassium quantif ication in these patients send serum separator tube (gold top) for subsequent determinations. ??Contact the Clinical Chemistry Laboratory if there are any qu estions. Chloride 101 98 - 107 mmol/L [facility] LABORATORY CO2 20 (L) 22 - 31 mmol/L [facility] LABORATORY Anion Gap 14 5 - 15 mmol/L [facility] LABORATORY Calcium 8.8 8.5 - 10.5 mg/dL [facility] LABORATORY Estimated GFR 87 >=60 mL/min/1.73 m?? [facility] LABORATORY Comment: The eGFR was calculated using the CKD-EP I equation. As with all creatinine based estimates of kidney function, eGFR values calculated with the CKD-EPI equation are not accurate in patients wi th acute kidney failure, extremes of body mass or the acutely ill. [email or web address] eGFR 101 >=60 mL/min/1.73 m?? [facility] LABORATORY Comment: The eGFR was calculated using the CKD-EP I equation. As with all creatinine based estimates of kidney function, eGFR values calculated with the CKD-EPI equation are not accurate in patients wi th acute kidney failure, extremes of body mass or the acutely ill. [email or web address] Specimen Anatomical Collection Method Collection Time Receive d Time (Source) Location / / Volume Laterality Blood specimen 12/07/2019 5:20 AM 020 5:37 (specimen) EDT AM EDT Resulting Agency Comment Spec In Lab Gretchen Yoon MD CHEMISTRY ORDERABLES Performing Organization Address City/[facility] [place] [address] Heparin (unfractionated) Level (12/06/2019 10:14 PM EDT) athologist Signature Heparin UFH 0.29 IU/mL [facility] LABORATORY Comment: Guidelines for therapeutic unfractionate [...] Lagos MD HEMATOLOGY ORDERABLES Performing Organization Address City/[facility]/[place] [address] Head wo Contrast [...] For questions regarding this report, please contact [facility] number below. ? Narrative 12/06/2019 10:06 [...] intracranial hemor rhage. No extra-axial fluid collections. Silevira matter white matter differentiation is well preserved. [...] Signature WBC 10.4 (H) 4.0 - 9.5 [facility] x[facility](3[facility] LABORATORY RBC 4.32 (L) 4.58 - [facility] OLIVIA 5.54 [facility] x10(6)/[facility] LABORATORY Hemoglobin 12.5 (L) 13.7 - [facility] 16.5 gm/dL [facility] LABORATORY Hematocrit 38.4 (L) 40.5 - [facility] 48.5 % [facility] LABORATORY MCV 88.9 82.9 - [facility] 93.1 [facility] LABORATORY MCH 28.9 27.5 - MELINA OLIVIA 32.1 pg [facility] LABORATORY MCHC 32.6 32.0 - [facility] 35.7 gm/dL [facility] LABORATORY Platelets 194 145 - 357 [facility] x10(3)/[facility] LABORATORY RDWSD 46.9 (H) 36.0 - [facility] 45.0 [facility] LABORATORY RDWCV 14.6 (H) 11.4 - [facility] OLIVIA 13.8 % [facility] LABORATORY MPV 11.9 7.6 - 12.9 [facility] OLIVIA [facility] LABORATORY nRBC % Auto 0.0 % [facility] LABORATORY nRBC Abs Auto 0.000 0.000 - [facility] OLIVIA 0.000 [facility] x10(3)/[facility] LABORATORY Specimen Anatomical Collection Method Collection Time Receive d Time (Source) Location / / Volume Laterality Blood specimen 12/06/2019 4:20 PM 020 4:31 (specimen) EDT PM EDT Resulting Agency Comment Spec In Lab Gretchen Yoon MD HEMATOLOGY ORDERABLES Performing Organization Address City/State/ZIP [place] [address] Heparin (unfractionated) Level (12/06/2019 4:20 PM EDT) P athologist Signature Heparin UFH 0.30 IU/mL [facility] LABORATORY Comment: Guidelines for therapeutic unfractionate [...] Organization Address City/State/ZIP [place] [address] Heparin (unfractionated) Level (12/06/2019 10:02 AM EDT) athologist Signature Heparin UFH <0.04 IU/mL [facility] LABORATORY Comment: Guidelines for therapeutic unfractionate [...] Organization Address City/State/ZIP Code Phon e Number [address] Magnesium (12/06/2019 3:36 AM EDT) P athologist Signature Magnesium 0.86 0.69 - 1.07 [facility] mmol/L [facility] LABORATORY Specimen Anatomical Collection Method Collection Time Receive d Time (Source) Location / / Volume Laterality Blood specimen 12/06/2019 3:36 AM 020 3:45 (specimen) EDT AM EDT Resulting Agency Comment Spec In Lab Gretchen Yoon MD CHEMISTRY ORDERABLES Performing Organization Address City/State/[place] [address] (ABNORMAL) BMP w/fasting Glucose (12/06/2019 3:36 AM EDT) P athologist Signature Glucose 103 (H) 65 - 99 [facility] Fasting mg/dL [facility] LABORATORY Comment: ?Fasting* Glucose Interpretive C [...] of Diabetes Mellitus, Position Statement from the [place] [employer]. ??Diabete s Care, Volume 33, Supplement 1, Jul 2009 BUN 20 10 - 20 mg/dL [facility] LABORATORY Creatinine 0.88 0.80 - 1.50 mg/dL [facility] LABORATORY Sodium 136 135 - 145 mmol/L [facility] LABORATORY Potassium 4.0 3.5 - 5.0 mmol/L [facility] LABORATORY Comment: Please note: ??Patients with WBC >100,00 0 may have falsely elevated Potassium levels. ??For accurate Potassium quantif ication in these patients send serum separator tube (gold top) for subsequent determinations. ??Contact the Clinical Chemistry Laboratory if there are any qu estions. Chloride 103 98 - 107 mmol/L [facility] LABORATORY CO2 19 (L) 22 - 31 mmol/L [facility] LABORATORY Anion Gap 14 5 - 15 mmol/L [facility] LABORATORY Calcium 8.7 8.5 - 10.5 mg/dL [facility] LABORATORY Estimated GFR 85 >=60 mL/min/1.73 m?? [facility] LABORATORY Comment: The eGFR was calculated using the CKD-EP I equation. As with all creatinine based estimates of kidney function, eGFR values calculated with the CKD-EPI equation are not accurate in patients wi th acute kidney failure, extremes of body mass or the acutely ill. [email or web address] [email or web address] eGFR 99 >=60 mL/min/1.73 m?? [facility] LABORATORY Comment: The eGFR was calculated using the CKD-EP I equation. As with all creatinine based estimates of kidney function, eGFR values calculated with the CKD-EPI equation are not accurate in patients wi th acute kidney failure, extremes of body mass or the acutely ill. [email or web address] [email or web address] Specimen Anatomical Collection Method Collection Time Receive d Time (Source) Location / / Volume Laterality Blood specimen 12/06/2019 3:36 AM 020 3:45 (specimen) EDT AM EDT Resulting Agency Comment Spec In Lab Gretchen Yoon MD CHEMISTRY ORDERABLES Performing Organization Address City/State/[place] [address] (ABNORMAL) Hemogram (12/06/2019 3:36 AM EDT) Analysis Performed At Patho logist Time Signature WBC 9.2 4.0 - 9.5 [facility] x[facility](3[facility] LABORATORY RBC 3.99 (L) 4.58 - MELINA OLIVIA 5.54 [facility] x10(6)/[facility] LABORATORY Hemoglobin 11.9 (L) 13.7 - MELINA OLIVIA 16.5 gm/dL [facility] LABORATORY Hematocrit 35.5 (L) 40.5 - [facility] 48.5 % [facility] LABORATORY MCV 89.0 82.9 - [facility] 93.1 [facility] LABORATORY MCH 29.8 27.5 - MELINA OLIVIA 32.1 pg [facility] LABORATORY MCHC 33.5 32.0 - MELINA OLIVIA 35.7 gm/dL [facility] LABORATORY Platelets 164 145 - 357 [facility] x10(3)/[facility] LABORATORY RDWSD 47.6 (H) 36.0 - MELINA OLIVIA 45.0 [facility] LABORATORY RDWCV 14.7 (H) 11.4 - [facility] OLIVIA 13.8 % [facility] LABORATORY MPV 11.9 7.6 - 12.9 [facility] LABORATORY nRBC % Auto 0.0 % [facility] LABORATORY nRBC Abs Auto 0.000 0.000 - MELINA OLIVIA 0.000 [facility] x10(3)/[facility] LABORATORY Specimen Anatomical Collection Method Collection Time Receive d Time (Source) Location / / Volume Laterality Blood specimen 12/06/2019 3:36 AM 020 3:45 (specimen) EDT AM EDT Resulting Agency Comment Spec In Lab Gretchen Yoon MD HEMATOLOGY ORDERABLES Performing Organization Address City/[facility]/[place] [address] (ABNORMAL) Differential, Automated (12/05/2019 10:52 PM EDT) [facility] Method Time Signature Neutrophils % 61.9 % [facility] LABORATORY Neutr Abs (ANC) 6.02 1.70 - [facility] 6.10 [facility] x10(3)/[facility] LABORATORY Lymphocytes % 22.4 % [facility] LABORATORY Lymphocytes Abs 2.2 0.9 - 3.2 [facility] x10(3)/[facility] LABORATORY Monocytes % 10.4 % [facility] LABORATORY Monocyte Abs 1.0 (H) 0.3 - 0.9 [facility] x10(3)/[facility] LABORATORY Eosinophils % 4.1 % [facility] LABORATORY Eosinophils Abs 0.4 0.0 - 0.4 [facility] x10(3)/[facility] LABORATORY Basophils % 0.7 % [facility] LABORATORY Basophils Abs 0.1 0.0 - 0.1 [facility] x10(3)/[facility] LABORATORY Immature Gran % 0.50 % [facility] LABORATORY Comment: Immature granulocytes(IG's)percentage an d absolute count will include metamyelocytes, myelocytes, and promyelo cytes. Blood smears from CBCs yielding IG's will be scanned manually for concor dance. If this scan disagrees with the automated IG or if promyelocytes are not ed, a manual differential will be performed. Pita Gran Abs 0.05 (H) 0.00 - 0.04 x10(3)/[facility] LABORATORY Specimen Anatomical Collection Method Collection Time Receive d Time (Source) Location / / Volume Laterality Blood specimen 12/05/2019 10:52 0 (specimen) PM EDT 10:59 PM EDT Resulting Agency Comment Spec In Lab Mandi Barrera MD HEMATOLOGY ORDERABLES Performing Organization Address City/State/ZIP [place] [address] (ABNORMAL) Hemogram (12/05/2019 10:52 PM EDT) Analysis Performed At [facility] logist Time Signature WBC 9.7 (H) 4.0 - 9.5 [facility] x10(3)/[facility] LABORATORY RBC 4.07 (L) 4.58 - MELINA WHITTENCOCK 5.54 [facility] x10(6)/[facility] LABORATORY Hemoglobin 11.9 (L) 13.7 - MELINA WHITTENCOCK 16.5 gm/dL [facility] LABORATORY Hematocrit 36.4 (L) 40.5 - MELINA WHITTENCOCK 48.5 % [facility] LABORATORY MCV 89.4 82.9 - [facility] OLIVIA 93.1 [facility] LABORATORY MCH 29.2 27.5 - MELINA WHITTENCOCK 32.1 pg [facility] LABORATORY MCHC 32.7 32.0 - MELINA WHITTENCOCK 35.7 gm/dL [facility] LABORATORY Platelets 167 145 - 357 [facility] x10(3)/[facility] LABORATORY RDWSD 47.7 (H) 36.0 - MELINA WHITTENCOCK 45.0 [facility] RDWCV 14.6 (H) 11.4 - [facility] 13.8 % [facility] LABORATORY MPV 12.1 7.6 - 12.9 [facility] LABORATORY nRBC % Auto 0.0 % [facility] LABORATORY nRBC Abs Auto 0.000 0.000 - [facility] OLIVIA 0.000 [facility] x10(3)/[facility] LABORATORY Specimen Anatomical Collection Method Collection Time Receive d Time (Source) Location / / Volume Laterality Blood specimen 12/05/2019 10:52 0 (specimen) PM EDT 10:59 PM EDT Resulting Agency Comment Spec In Lab Mandi Barrera MD HEMATOLOGY ORDERABLES Performing Organization Address City/State/ZIP [place] [address] Heparin (unfractionated) Level (12/05/2019 10:52 PM EDT) P athologist Signature Heparin UFH <0.04 IU/mL [facility] LABORATORY Comment: Guidelines for therapeutic unfractionate [...] Organization Address City/State/[place] [address] MRI Brain wwo Contrast [...] Time Signature WBC 8.7 4.0 - 9.5 [facility] x10(3)/[facility] LABORATORY RBC 4.17 (L) 4.58 - [facility] 5.54 [facility] x10(6)/[facility] LABORATORY Hemoglobin 12.4 (L) 13.7 - [facility] 16.5 gm/dL [facility] LABORATORY Hematocrit 37.0 (L) 40.5 - [facility] 48.5 % [facility] LABORATORY MCV 88.7 82.9 - [facility] 93.1 [facility] LABORATORY MCH 29.7 27.5 - [facility] 32.1 pg [facility] LABORATORY MCHC 33.5 32.0 - [facility] 35.7 gm/dL [facility] LABORATORY Platelets 173 145 - 357 [facility] x10(3)/[facility] LABORATORY RDWSD 47.3 (H) 36.0 - [facility] 45.0 [facility] LABORATORY RDWCV 14.6 (H) 11.4 - [facility] 13.8 % [facility] LABORATORY MPV 12.1 7.6 - 12.9 [facility] LABORATORY nRBC % Auto 0.0 % [facility] LABORATORY nRBC Abs Auto 0.000 0.000 - [facility] 0.000 [facility] x10(3)/[facility] LABORATORY Specimen Anatomical Collection Method Collection Time Receive d Time (Source) Location / / Volume Laterality Blood specimen 12/05/2019 1:00 PM 020 1:13 (specimen) EDT PM EDT Resulting Agency Comment Spec In Lab Gretchen Yoon MD HEMATOLOGY ORDERABLES Performing Organization Address City/State/Z[place] [address] EKG 12 Lead (12/05/2019 10:52 AM EDT) Component Value Ref Range Test Analysis Performed Pathologis t Method Time At Signature Ventricular rate 72 BPM MUSE SYSTEM Atrial Rate 72 BPM MUSE SYSTEM P-R Interval 138 ms MUSE SYSTEM QRS Duration 96 ms MUSE SYSTEM Q-T Interval 396 ms MUSE SYSTEM QTC Calculated 433 ms MUSE SYSTEM (Bezet) Calculated P Van 65 degrees MUSE SYSTEM Calculated R Van 13 degrees MUSE SYSTEM Calculated T Van 0 degrees MUSE SYSTEM INTERPRETATION Sinus rhythm Occasional Premature ventricular complexe s MUSE SYSTEM Possible Inferior infarct (cited on or before 29-NOV-2019) Abnormal ECG When compared with ECG of 04-DEC-2019 10:43, Sinus rhythm has replaced Atrial fibrillation Vent. rate has decreased BY ??86 BPM Confirmed by MD Ceja Daniel ([id number]) on 12/05/2019 3:55:22 PM Specimen Anatomical Collection Method Collection Time Receive d Time (Source) Location / / Volume Laterality 12/05/2019 10:52 12/05/2019 3:55 AM EDT PM EDT Paris Lagos MD ECG ORDERABLES Performing Organization Address City/State/ZIP Code Phon e Number MUSE SYSTEM Duplex Study for DVT, Bilat legs (12/05/2019 7:00 AM EDT) Component Value Ref Test Analysis Performed At [facility] Range Method Time Signature VB Text Department: Vascular Surgery Lab VASCUBASE Report Patient: [id number] (ANGEL LUIS SALINAS) CPT: 20417 ICD10: I26.99 Referring Physician: GRETCHEN YOON ?? [...] athologist Signature Magnesium 0.87 0.69 - 1.07 [facility] mmol/L [facility] LABORATORY Specimen Anatomical Collection Method Collection Time Receive d Time (Source) Location / / Volume Laterality Blood specimen 12/05/2019 4:18 AM 020 4:31 (specimen) EDT AM EDT Resulting Agency Comment Spec In Lab Gretchen Yoon MD CHEMISTRY ORDERABLES Performing Organization Address City/[facility]/[place] [address] (ABNORMAL) BMP w/fasting Glucose (12/05/2019 4:18 AM EDT) P athologist Signature Glucose 104 (H) 65 - 99 [facility] Fasting mg/dL [facility] LABORATORY Comment: ?Fasting* Glucose Interpretive C [...] of Diabetes Mellitus, Position Statement from the [place] [employer]. ??Diabete s Care, Volume 33, Supplement 1, Jul 2009 BUN 21 (H) 10 - 20 mg/dL [facility] LABORATORY Creatinine 1.02 0.80 - 1.50 mg/dL [facility] LABORATORY Sodium 136 135 - 145 mmol/L [facility] LABORATORY Potassium 3.9 3.5 - 5.0 mmol/L [facility] LABORATORY Comment: Please note: ??Patients with WBC >100,00 0 may have falsely elevated Potassium levels. ??For accurate Potassium quantif ication in these patients send serum separator tube (gold top) for subsequent determinations. ??Contact the Clinical Chemistry Laboratory if there are any qu estions. Chloride 103 98 - 107 mmol/L [facility] CO2 21 (L) 22 - 31 mmol/L [facility] Anion Gap 12 5 - 15 mmol/L [facility] Calcium 8.8 8.5 - 10.5 mg/dL [facility] Estimated GFR 73 >=60 mL/min/1.73 m?? [facility] Comment: The eGFR was calculated using the CKD-EP I equation. As with all creatinine based estimates of kidney function, eGFR values calculated with the CKD-EPI equation are not accurate in patients wi th acute kidney failure, extremes of body mass or the acutely ill. [email or web address] eGFR 84 >=60 mL/min/1.73 m?? [facility] Comment: The eGFR was calculated using the CKD-EP I equation. As with all creatinine based estimates of kidney function, eGFR values calculated with the CKD-EPI equation are not accurate in patients wi th acute kidney failure, extremes of body mass or the acutely ill. [email or web address] Specimen Anatomical Collection Method Collection Time Receive d Time (Source) Location / / Volume Laterality Blood specimen 12/05/2019 4:18 AM 020 4:31 (specimen) EDT AM EDT Resulting Agency Comment Spec In Lab Gretchen Yoon MD CHEMISTRY ORDERABLES Performing Organization Address City/State/[place] [address] (ABNORMAL) Hemogram (12/05/2019 4:18 AM EDT) Analysis Performed At Patho logist Time Signature WBC 8.6 4.0 - 9.5 [facility] x10(3)/[facility] LABORATORY RBC 4.28 (L) 4.58 - MELINA OLIVIA 5.54 [facility] x10(6)/[facility] LABORATORY Hemoglobin 12.4 (L) 13.7 - [facility] 16.5 gm/dL [facility] Hematocrit 37.3 (L) 40.5 - [facility] 48.5 % [facility] MCV 87.1 82.9 - [facility] 93.1 [facility] LAB[facility]ATORY MCH 29.0 27.5 - [facility] 32.1 pg [facility] MCHC 33.2 32.0 - [facility] 35.7 gm/dL [facility] Platelets 163 145 - 357 [facility] x10(3)/[facility] LABORATORY RDWSD 46.4 (H) 36.0 - [facility].0 [facility] LABORATORY RDWCV 14.4 (H) 11.4 - [facility] 13.8 % [facility] MPV 11.7 7.6 - 12.9 [facility] LABORATORY nRBC % Auto 0.0 % [facility] nRBC Abs Auto 0.000 0.000 - [facility] 0.000 [facility] x10(3)/[facility] LABORATORY Specimen Anatomical Collection Method Collection Time Receive d Time (Source) Location / / Volume Laterality Blood specimen 12/05/2019 4:18 AM 020 4:31 (specimen) EDT AM EDT Resulting Agency Comment Spec In Lab Gretchen Yoon MD HEMATOLOGY ORDERABLES Performing Organization Address City/State/Z[place] [address] Cardiac for Morphology [...] For questions regarding this report, please contact [facility] number below. ? Narrative 12/04/2019 6:16 [...] from neck/greatest puja meter to back wall: KOSOVAN 91, CAU 13: ??19 mm CORTES ??1, [...] from neck/greatest puja meter to back wall: KOSOVAN 91, CAU 13: 19 mm CORTES 1, [...] Time Signature WBC 8.9 4.0 - 9.5 [facility] OLIVIA x10(3)/[facility] LABORATORY RBC 4.69 4.58 - [facility] OLIVIA 5.54 [facility] x10(6)/[facility] LABORATORY Hemoglobin 13.5 (L) 13.7 - [facility] 16.5 gm/dL [facility] Hematocrit 41.7 40.5 - [facility] OLIVIA 48.5 % [facility] MCV 88.9 82.9 - [facility] 93.1 fL [facility] MCH 28.8 27.5 - [place] OLIVIA 32.1 pg [facility] MCHC 32.4 32.0 - [facility] OLIVIA 35.7 gm/dL [facility] Platelets 196 145 - 357 [facility] x10(3)/[facility] LABORATORY RDWSD 46.7 (H) 36.0 - [place] OLIVIA 45.0 [facility] LABORATORY RDWCV 14.5 (H) 11.4 - [place] OLIVIA 13.8 % [facility] MPV 12.1 7.6 - 12.9 MELINA MONAE [facility] LABORATORY nRBC % Auto 0.0 % [facility] nRBC Abs Auto 0.000 0.000 - MELINA MONAE 0.000 [facility] x10(3)/[facility] LABORATORY Specimen Anatomical Collection Method Collection Time Receive d Time (Source) Location / / Volume Laterality Blood specimen 12/04/2019 12:55 0 1:06 (specimen) PM EDT PM EDT Resulting Agency Comment Spec In Lab Gretchen Yoon MD HEMATOLOGY ORDERABLES Performing Organization Address City/[facility]/[place] [address] EKG 12 Lead (12/04/2019 10:43 AM EDT) Component Value Ref Range Test Analysis Performed Pathologis t Method Time At Signature Ventricular rate 158 BPM MUSE SYSTEM Atrial Rate 102 BPM MUSE SYSTEM QRS Duration 92 ms MUSE SYSTEM Q-T Interval 294 ms MUSE SYSTEM QTC Calculated 476 ms MUSE SYSTEM (Bezet) Calculated R Van 17 degrees MUSE SYSTEM Calculated T Van 90 degrees MUSE SYSTEM INTERPRETATION Atrial fibrillation with rapid ventricular response MUSE SYSTEM Possible Inferior infarct (cited on or before 29-NOV-2019) Abnormal ECG When compared with ECG of 30-NOV-2019 21:07, Atrial fibrillation has replaced Sinus rhythm Vent. rate has increased BY ??65 BPM Confirmed by MD Ceja Daniel ([id number]) on 12/05/2019 8:59:44 AM Specimen Anatomical Collection Method Collection Time Receive d Time (Source) Location / / Volume Laterality 12/04/2019 10:43 12/05/2019 8:59 AM EDT AM EDT Gretchen Yoon MD ECG ORDERABLES Performing Organization Address City/State/ZIP Code Phon e Number MUSE SYSTEM (ABNORMAL) Magnesium (12/04/2019 4:28 AM EDT) P athologist Signature Magnesium 1.17 (H) 0.69 - 1.07 [facility] mmol/L [facility] Specimen Anatomical Collection Method Collection Time Receive d Time (Source) Location / / Volume Laterality Blood specimen 12/04/2019 4:28 AM 020 4:40 (specimen) EDT AM EDT Resulting Agency Comment Spec In Lab Gretchen Yoon MD CHEMISTRY ORDERABLES Performing Organization Address City/State/ZIP [place] [address] (ABNORMAL) BMP w/fasting Glucose (12/04/2019 4:28 AM EDT) athologist Signature Glucose 108 (H) 65 - 99 [facility] Fasting mg/dL [facility] Comment: ?Fasting* Glucose Interpretive C [...] of Diabetes Mellitus, Position Statement from the [place] [employer]. ??Diabete s Care, Volume 33, Supplement 1, Jul 2009 BUN 19 10 - 20 mg/dL [facility] Creatinine 0.89 0.80 - 1.50 mg/dL [facility] Sodium 135 135 - 145 mmol/L [facility] Potassium 4.2 3.5 - 5.0 mmol/L [facility] Comment: Please note: ??Patients with WBC >100,00 0 may have falsely elevated Potassium levels. ??For accurate Potassium quantif ication in these patients send serum separator tube (gold top) for subsequent determinations. ??Contact the Clinical Chemistry Laboratory if there are any qu estions. Chloride 104 98 - 107 mmol/L [facility] CO2 19 (L) 22 - 31 mmol/L [facility] Anion Gap 12 5 - 15 mmol/L [facility] Calcium 8.5 8.5 - 10.5 mg/dL [facility] Estimated GFR 85 >=60 mL/min/1.73 m?? [facility] Comment: The eGFR was calculated using the CKD-EP I equation. As with all creatinine based estimates of kidney function, eGFR values calculated with the CKD-EPI equation are not accurate in patients wi th acute kidney failure, extremes of body mass or the acutely ill. [email or web address] [email or web address] eGFR 98 >=60 mL/min/1.73 m?? [facility] Comment: The eGFR was calculated using the CKD-EP I equation. As with all creatinine based estimates of kidney function, eGFR values calculated with the CKD-EPI equation are not accurate in patients wi th acute kidney failure, extremes of body mass or the acutely ill. [email or web address] Specimen Anatomical Collection Method Collection Time Receive d Time (Source) Location / / Volume Laterality Blood specimen 12/04/2019 4:28 AM 020 4:40 (specimen) EDT AM EDT Resulting Agency Comment Spec In Lab Gretchen Yoon MD CHEMISTRY ORDERABLES Performing Organization Address City/State/[place] [address] (ABNORMAL) Hemogram (12/04/2019 4:28 AM EDT) Analysis Performed At Patho logist Time Signature WBC 7.8 4.0 - 9.5 [facility] x10(3)/[facility] LABORATORY RBC 4.10 (L) 4.58 - [facility] 5.54 [facility] x10(6)/[facility] LABORATORY Hemoglobin 12.0 (L) 13.7 - [facility] 16.5 gm/dL [facility] Hematocrit 36.5 (L) 40.5 - [facility] 48.5 % [facility] MCV 89.0 82.9 - [facility] 93.1 fL [facility] MCH 29.3 27.5 - MELINA MONAE 32.1 pg [facility] MCHC 32.9 32.0 - M[place] MONAE 35.7 gm/dL [facility] Platelets 151 145 - 357 MELINA MARSHOLIVIA x10(3)/[facility] LABORATORY RDWSD 46.9 (H) 36.0 - MELINA MONAE 45.0 [facility] LABORATORY RDWCV 14.4 (H) 11.4 - MELINA MONAE 13.8 % [facility] MPV 12.2 7.6 - 12.9 MELINA MONAE fL [facility] nRBC % Auto 0.0 % [facility] nRBC Abs Auto 0.000 0.000 - MELINA MONAE 0.000 [facility] x10(3)/[facility] LABORATORY Specimen Anatomical Collection Method Collection Time Receive d Time (Source) Location / / Volume Laterality Blood specimen 12/04/2019 4:28 AM 020 4:40 (specimen) EDT AM EDT Resulting Agency Comment Spec In Lab Gretchen Yoon MD HEMATOLOGY ORDERABLES Performing Organization Address City/[facility]/ZIP Code Phon e Number [address] Potassium (12/03/2019 7:55 PM EDT) athologist Signature Potassium 3.9 3.5 - 5.0 [facility] mmol/L [facility] Comment: Please note: ??Patients with [...] Organization Address City/State/ZIP Code Phon e Number [address] Potassium (12/03/2019 1:57 PM EDT) athologist Signature Potassium 3.7 3.5 - 5.0 [place] OLIVIA mmol/L [facility] Comment: Please note: ??Patients with [...] Organization Address City/State/Z[place] [address] (ABNORMAL) Hemogram (12/03/2019 1:57 PM EDT) Analysis Performed At Patho logist Time Signature WBC 8.8 4.0 - 9.5 [facility] x10(3)/[facility] LABORATORY RBC 4.27 (L) 4.58 - MELINA OLIVAI 5.54 [facility] x10(6)/[facility] LABORATORY Hemoglobin 12.5 (L) 13.7 - [place] OLIVIA 16.5 gm/dL [facility] Hematocrit 37.5 (L) 40.5 - [place] OLIVIA 48.5 % [facility] MCV 87.8 82.9 - [place] OLIVIA 93.1 [facility] LABORATORY MCH 29.3 27.5 - M[place] OLIVIA 32.1 pg [facility] MCHC 33.3 32.0 - [place] OLIVIA 35.7 gm/dL [facility] Platelets 158 145 - 357 [facility] x10(3)/[facility] LABORATORY RDWSD 46.9 (H) 36.0 - M[place] OLIVIA 45.0 [facility] LABORATORY RDWCV 14.5 (H) 11.4 - [place] OLIVIA 13.8 % [facility] MPV 12.2 7.6 - 12.9 MELINA OLIVIA [facility] LABORATORY nRBC % Auto 0.0 % [facility] nRBC Abs Auto 0.000 0.000 - [place] OLIVIA 0.000 [facility] x10(3)/[facility] LABORATORY Specimen Anatomical Collection Method Collection Time Receive d Time (Source) Location / / Volume Laterality Blood specimen 12/03/2019 1:57 PM 020 2:21 (specimen) EDT PM EDT Resulting Agency Comment Spec In Lab Gretchen Yoon MD HEMATOLOGY ORDERABLES Performing Organization Address City/State/ZIP Code Phon e Number [address] Magnesium (12/03/2019 4:02 AM EDT) athologist Signature Magnesium 0.79 0.69 - 1.07 [facility] mmol/L [facility] Specimen Anatomical Collection Method Collection Time Receive d Time (Source) Location / / Volume Laterality Blood specimen 12/03/2019 4:02 AM 020 4:16 (specimen) EDT AM EDT Resulting Agency Comment Spec In Lab Gretchen Yoon MD CHEMISTRY ORDERABLES Performing Organization Address City/State/[place] [address] (ABNORMAL) BMP w/fasting Glucose (12/03/2019 4:02 AM EDT) P athologist Signature Glucose 100 (H) 65 - 99 [facility] Fasting mg/dL [facility] Comment: ?Fasting* Glucose Interpretive C [...] of Diabetes Mellitus, Position Statement from the [place] [employer]. ??Diabete s Care, Volume 33, Supplement 1, Jul 2009 BUN 17 10 - 20 mg/dL [facility] Creatinine 0.95 0.80 - 1.50 mg/dL [facility] Sodium 136 135 - 145 mmol/L [facility] Potassium 3.4 (L) 3.5 - 5.0 mmol/L [facility] Comment: Please note: ??Patients with WBC >100,00 0 may have falsely elevated Potassium levels. ??For accurate Potassium quantif ication in these patients send serum separator tube (gold top) for subsequent determinations. ??Contact the Clinical Chemistry Laboratory if there are any qu estions. Chloride 103 98 - 107 mmol/L [facility] CO2 18 (L) 22 - 31 mmol/L [facility] Anion Gap 15 5 - 15 mmol/L [facility] Calcium 8.3 (L) 8.5 - 10.5 mg/dL [facility] Estimated GFR 79 >=60 mL/min/1.73 m?? [facility] Comment: The eGFR was calculated using the CKD-EP I equation. As with all creatinine based estimates of kidney function, eGFR values calculated with the CKD-EPI equation are not accurate in patients wi th acute kidney failure, extremes of body mass or the acutely ill. [email or web address] [email or web address] eGFR 92 >=60 mL/min/1.73 m?? [facility] Comment: The eGFR was calculated using the CKD-EP I equation. As with all creatinine based estimates of kidney function, eGFR values calculated with the CKD-EPI equation are not accurate in patients wi th acute kidney failure, extremes of body mass or the acutely ill. [email or web address] Specimen Anatomical Collection Method Collection Time Receive d Time (Source) Location / / Volume Laterality Blood specimen 12/03/2019 4:02 AM 020 4:16 (specimen) EDT AM EDT Resulting Agency Comment Spec In Lab Gretchen Yoon MD CHEMISTRY ORDERABLES Performing Organization Address City/State/Z[place] [address] (ABNORMAL) Hemogram (12/03/2019 4:02 AM EDT) Analysis Performed At Patho logist Time Signature WBC 9.1 4.0 - 9.5 [facility] x10(3)/[facility] LABORATORY RBC 4.01 (L) 4.58 - [facility] 5[facility]54 [facility] x10(6)/[facility] LABORATORY Hemoglobin 11.8 (L) 13.7 - [facility] 16.5 gm/dL [facility] Hematocrit 35.6 (L) 40.5 - [facility] 48.5 % [facility] MCV 88.8 82.9 - [facility] 93.1 [facility]ORY MCH 29.4 27.5 - [facility] 32.1 pg [facility] MCHC 33.1 32.0 - [facility] 35.7 gm/dL [facility] Platelets 130 (L) 145 - 357 [facility] x10(3)/[facility] LABORATORY RDWSD 46.6 (H) 36.0 - [facility] 45.0 [facility] LAB[facility]ATORY RDWCV 14.4 (H) 11.4 - [facility] 13.8 % [facility] MPV 12.4 7.6 - 12.9 [facility] LABORATORY nRBC % Auto 0.0 % [facility] nRBC Abs Auto 0.000 0.000 - [facility] 0.000 [facility] x10(3)/[facility] LABORATORY Specimen Anatomical Collection Method Collection Time Receive d Time (Source) Location / / Volume Laterality Blood specimen 12/03/2019 4:02 AM 020 4:16 (specimen) EDT AM EDT Resulting Agency Comment Spec In Lab Gretchen Yoon MD HEMATOLOGY ORDERABLES Performing Organization Address City/State/Z[place] [address] XR Chest One View [...] Signature WBC 10.6 (H) 4.0 - 9.5 [facility] x10(3)/[facility] LABORATORY RBC 4.00 (L) 4.58 - [facility] 5.54 [facility] x10(6)/[facility] LABORATORY Hemoglobin 11.9 (L) 13.7 - [facility] 16.5 gm/dL [facility] Hematocrit 35.7 (L) 40.5 - [facility] 48.5 % [facility] MCV 89.3 82.9 - [facility] 93.1 [facility] LABORATORY MCH 29.8 27.5 - [facility] 32.1 pg [facility] MCHC 33.3 32.0 - [facility] 35.7 gm/dL [facility] Platelets 120 (L) 145 - 357 [facility] x10(3)/[facility] LABORATORY RDWSD 47.5 (H) 36.0 - [facility] 45.0 [facility] LABORATORY RDWCV 14.6 (H) 11.4 - [facility] 13.8 % [facility] MPV 12.0 7.6 - 12.9 [facility] LABORATORY nRBC % Auto 0.0 % [facility] nRBC Abs Auto 0.000 0.000 - [facility] 0.000 [facility] x10(3)/[facility] LABORATORY Specimen Anatomical Collection Method Collection Time Receive d Time (Source) Location / / Volume Laterality Blood specimen 12/02/2019 12:50 0 1:22 (specimen) PM EDT PM EDT Resulting Agency Comment Spec In Lab Gretchen Yoon MD HEMATOLOGY ORDERABLES Performing Organization Address City/State/Z[place] [address] Blue Tube HOLD (12/02/2019 4:55 AM EDT) P athologist Signature Blue Hold Sample in [facility] lab. [facility] Specimen Anatomical Collection Method Collection Time Receive d Time (Source) Location / / Volume Laterality Blood specimen Venous Draw / 12/02/2019 4:55 AM 2019 5:03 (specimen) Unknown EDT AM EDT Darrell Glasgow MD HEMATOLOGY ORDERABLES Performing Organization Address City/State/ZIP Code Phon e Number [address] Magnesium (12/02/2019 4:55 AM EDT) athologist Signature Magnesium 0.85 0.69 - 1.07 [facility] mmol/L [facility] Specimen Anatomical Collection Method Collection Time Receive d Time (Source) Location / / Volume Laterality Blood specimen 12/02/2019 4:55 AM 020 5:02 (specimen) EDT AM EDT Resulting Agency Comment Spec In Lab Gretchen Yoon MD CHEMISTRY ORDERABLES Performing Organization Address City/[facility]/[place] [address] (ABNORMAL) BMP w/fasting Glucose (12/02/2019 4:55 AM EDT) athologist Signature Glucose 114 (H) 65 - 99 [facility] Fasting mg/dL [facility] Comment: ?Fasting* Glucose Interpretive C [...] of Diabetes Mellitus, Position Statement from the [place] [employer]. ??Diabete s Care, Volume 33, Supplement 1, Jul 2009 BUN 13 10 - 20 mg/dL [facility] Creatinine 0.93 0.80 - 1.50 mg/dL [facility] Sodium 135 135 - 145 mmol/L [facility] Potassium 3.7 3.5 - 5.0 mmol/L [facility] Comment: Please note: ??Patients with WBC >100,00 0 may have falsely elevated Potassium levels. ??For accurate Potassium quantif ication in these patients send serum separator tube (gold top) for subsequent determinations. ??Contact the Clinical Chemistry Laboratory if there are any qu estions. Chloride 105 98 - 107 mmol/L [facility] CO2 18 (L) 22 - 31 mmol/L [facility] Anion Gap 12 5 - 15 mmol/L [facility] Calcium 8.1 (L) 8.5 - 10.5 mg/dL [facility] Estimated GFR 81 >=60 mL/min/1.73 m?? [facility] Comment: The eGFR was calculated using the CKD-EP I equation. As with all creatinine based estimates of kidney function, eGFR values calculated with the CKD-EPI equation are not accurate in patients wi th acute kidney failure, extremes of body mass or the acutely ill. [email or web address] eGFR 94 >=60 mL/min/1.73 m?? [facility] Comment: The eGFR was calculated using the CKD-EP I equation. As with all creatinine based estimates of kidney function, eGFR values calculated with the CKD-EPI equation are not accurate in patients wi th acute kidney failure, extremes of body mass or the acutely ill. [email or web address] Specimen Anatomical Collection Method Collection Time Receive d Time (Source) Location / / Volume Laterality Blood specimen 12/02/2019 4:55 AM 020 5:02 (specimen) EDT AM EDT Resulting Agency Comment Spec In Lab Gretchen Yoon MD CHEMISTRY ORDERABLES Performing Organization Address City/State/Z[place] [address] (ABNORMAL) Hemogram (12/02/2019 4:55 AM EDT) Analysis Performed At Patho logist Time Signature WBC 9.3 4.0 - 9.5 [facility] x10(3)/[facility] LABORATORY RBC 3.71 (L) 4.58 - MELINA OLIVIA 5.54 [facility] x10(6)/[facility] LABORATORY Hemoglobin 10.8 (L) 13.7 - [facility] 16.5 gm/dL [facility] Hematocrit 33.1 (L) 40.5 - [facility] 48.5 % [facility] MCV 89.2 82.9 - [facility] 93.1 [facility] LABORATORY MCH 29.1 27.5 - [facility] 32.1 pg [facility] MCHC 32.6 32.0 - [facility] 35.7 gm/dL [facility] Platelets 93 (L) 145 - 357 [facility] x10(3)/[facility] LABORATORY RDWSD 47.1 (H) 36.0 - [facility] 45.0 [facility] LABORATORY RDWCV 14.6 (H) 11.4 - [facility] 13.8 % [facility] MPV 11.7 7.6 - 12.9 [facility] LABORATORY nRBC % Auto 0.0 % [facility] nRBC Abs Auto 0.000 0.000 - [facility] 0.000 [facility] x10(3)/[facility] LABORATORY Specimen Anatomical Collection Method Collection Time Receive d Time (Source) Location / / Volume Laterality Blood specimen 12/02/2019 4:55 AM 020 5:02 (specimen) EDT AM EDT Resulting Agency Comment Spec In Lab Gretchen Yoon MD HEMATOLOGY ORDERABLES Performing Organization Address City/State/[place] [address] Transfuse 1 unit platelets, [...] For questions regarding this report, please contact [facility] number below. ? Narrative 12/01/2019 8:02 PM EDT EXAMINATION: MRI [...] For questions regarding this report, please contact [facility] number below. Gretchen Yoon MD IMG MRI ORDERABLES Prepare Platelets, Apheresis (12/01/2019 6:20 PM EDT) P athologist Signature Dispensed? Yes [facility] LABORATORY Specimen Anatomical Collection Method Collection Time Receive d Time (Source) Location / / Volume Laterality Blood specimen 12/01/2019 6:20 PM 020 6:18 (specimen) EDT PM EDT Gretchen Yoon MD BLOOD BANK ORDERABLES Performing Organization Address City/State/ZIP Code Phon e Number [place] [id number] HOSPITAL LABORATORY Drive Duplex for DVT, Arm, Unilat (12/01/2019 5:08 PM EDT) Component Value Ref Test Analysis Performed At Patholo gist Range Method Time Signature VB Text Department: Vascular Surgery Lab VASCUBASE Report Patient: [id number] (ANGEL LUIS SALINAS) CPT: 62625 ICD10: R60.0 Referring Physician: GRETCHEN YOON ?? [...] For questions regarding this report, please contact [facility] number below. ? Narrative 12/01/2019 3:53 PM EDT EXAMINATION: CT HEAD WO CONTRAST (GENERIC) CLINICAL HISTORY: Headache, intracranial hemorrhage suspected Serial CT scan: please assess for propag ation of known ICH noted on prior Head CT/imaging. TECHNIQUE: CT head performed without intravenous co ntrast administration. COMPARISON: Head CT 11/30/2019. CT angiogram of the [place] [facility] [place] 11/01. FINDINGS: Ventricles are normal in size. Basal cis terns are patent. Unchanged hyperdense 2.3 x 0.7 x 0.6 cm tubular hemorrhage projecting along the course of the left optic tract (axial se [facility] 2 image 16), consistent with intraparenchymal hematoma. [...] Head CT 11/30/2019. CT angiogram of the [place] [facility] [place] 11/01. FINDINGS: Ventricles are normal [...] Scan, Peripheral Blood (12/01/2019 12:51 PM EDT) [facility] Method Time Signature Plat Estimate Decreased [facility] LABORATORY RBC Morphology Normal [facility] LABORAT[facility] Giant Less than 1 /HPF [facility] Platelets [facility] LABORATORY Specimen Anatomical Collection Method Collection Time Receive d Time (Source) Location / / Volume Laterality Blood specimen 12/01/2019 12:51 0 1:05 (specimen) PM EDT PM EDT Resulting Agency Comment Spec In Lab Riki Stevens MD HEMATOLOGY ORDERABLES Performing Organization Address City/State/[place] [address] (ABNORMAL) Differential, Automated (12/01/2019 12:51 PM EDT) [facility] Method Time Signature Neutrophils % 74.9 % [facility] LABORATORY Neutr Abs (ANC) 6.34 (H) 1.70 - [facility] 6.10 [facility] x10(3)/[facility] LABORATORY Lymphocytes % 11.4 % [facility] LABORATORY Lymphocytes Abs 1.0 0.9 - 3.2 [facility] x10(3)/[facility] LABORATORY Monocytes % 12.4 % [facility] LABORATORY Monocyte Abs 1.0 (H) 0.3 - 0.9 [facility] x10(3)/[facility] LABORATORY Eosinophils % 0.4 % [facility] LABORATORY Eosinophils Abs 0.0 0.0 - 0.4 [facility] x10(3)/[facility] LABORATORY Basophils % 0.4 % [facility] LABORATORY Basophils Abs 0.0 0.0 - 0.1 [facility] x10(3)/[facility] LABORATORY Immature Gran % 0.50 % MELINA [...] Pita Gran Abs 0.04 0.00 - 0.04 x10(3)/[facility] LABORATORY Specimen Anatomical Collection Method Collection Time Receive d Time (Source) Location / / Volume Laterality Blood specimen 12/01/2019 12:51 0 1:05 (specimen) PM EDT PM EDT Resulting Agency Comment Spec In Lab Riki Stevens MD HEMATOLOGY ORDERABLES Performing Organization Address City/State/ZIP [place] [address] (ABNORMAL) Hemogram (12/01/2019 12:51 PM EDT) Analysis Performed At Patho logist Time Signature WBC 8.4 4.0 - 9.5 [facility] x10(3)/[facility] LABORATORY RBC 3.69 (L) 4.58 - [facility] 5.54 [facility] x10(6)/[facility] LABORATORY Hemoglobin 10.8 (L) 13.7 - [facility] 16.5 gm/dL [facility] LABORATORY Hematocrit 32.4 (L) 40.5 - [facility] 48.5 % [facility] LABORATORY MCV 87.8 82.9 - [facility] 93.1 [facility] LABORATORY MCH 29.3 27.5 - [facility] OLIVIA 32.1 pg [facility] LABORATORY MCHC 33.3 32.0 - [facility] 35.7 gm/dL [facility] LABORATORY Platelets 72 (L) 145 - 357 [facility] x10(3)/[facility] LABORATORY RDWSD 47.2 (H) 36.0 - [facility] 45.0 [facility] LABORATORY RDWCV 14.6 (H) 11.4 - [facility] 13.8 % [facility] LABORATORY MPV 12.2 7.6 - 12.9 [facility] LABORATORY nRBC % Auto 0.0 % [facility] LABORATORY nRBC Abs Auto 0.000 0.000 - [facility] 0.000 [facility] x10(3)/[facility] LABORATORY Specimen Anatomical Collection Method Collection Time Receive d Time (Source) Location / / Volume Laterality Blood specimen 12/01/2019 12:51 0 1:05 (specimen) PM EDT PM EDT Resulting Agency Comment Spec In Lab Riki Stevens MD HEMATOLOGY ORDERABLES Performing Organization Address City/[facility]/ZIP Code Phon e Number [address] (ABNORMAL) Coox2 (12/01/2019 11:42 AM EDT) Analysis Performed At Patho logist Time Signature pO2 Coox 30 mmHg [facility] LABORATORY Hgb Blood Gas 11.6 (L) 13.7 - [facility] 16.5 gm/dL [facility] LABORATORY O2HB Coox 60.8 % [facility] LABORATORY COHB Coox 0.6 % [facility] LABORATORY Comment: Nonsmokers: 0.5-1.5% COHB Smokers: Variable, but usually less than 10% Toxic: 20-30% COHB Lethal: Greater than 60% COHB METHB Coox 0.6 <=1.5 % [facility] LABORATORY Source Coox Mixed Venous [facility] LABORATORY Specimen Anatomical Collection Method Collection Time Receive d Time (Source) Location / / Volume Laterality Blood specimen 12/01/2019 11:42 0 (specimen) AM EDT 11:42 AM EDT Gretchen Yoon MD CHEMISTRY ORDERABLES Performing Organization Address City/State/[place] [address] Sedimentation rate (12/01/2019 3:55 AM EDT) P athologist Signature Sed Rate 25 3 - 46 [facility] mm/hr [facility] LABORATORY Comment: Effective June 11, 2019 [...] Winn MD HEMATOLOGY ORDERABLES Performing Organization Address City/[facility]/[place] [address] (ABNORMAL) CRP, acute inflammation (12/01/2019 3:55 AM EDT) P athologist Signature CRP 92.5 (H) <=4.9 mg/L [facility] LABORATORY Specimen Anatomical Collection Method Collection Time Receive d Time (Source) Location / / Volume Laterality Blood specimen Venous Draw / 12/01/2019 3:55 AM 2019 4:06 (specimen) Unknown EDT AM EDT Resulting Agency Comment Spec In Lab Rossy Winn MD CHEMISTRY ORDERABLES Performing Organization Address City/[facility]/[place] [address] ABORH Recheck Status (12/01/2019 3:55 AM EDT) [facility] Method Time Signature ABORH Recheck Order Placed [facility] LABORATORY ABORH Type Complete [facility] LABORATORY Specimen Anatomical Collection Method Collection Time Receive d Time (Source) Location / / Volume Laterality Blood specimen 12/01/2019 3:55 AM 020 4:15 (specimen) EDT AM EDT Resulting Agency Comment Spec In Lab Lewis Gee MD BLOOD BANK ORDERABLES Performing Organization Address City/[facility]/[place] [address] Antibody screen (12/01/2019 3:55 AM EDT) [facility] Method Time Signature Ab Screen Negative [facility] LABORATORY Expires at 12/04/2019 [facility] [id number] on: [facility] LABORATORY Specimen Anatomical Collection Method Collection Time Receive d Time (Source) Location / / Volume Laterality Blood specimen 12/01/2019 3:55 AM 020 4:15 (specimen) EDT AM EDT Resulting Agency Comment Spec In Lab Lewis Gee MD BLOOD BANK ORDERABLES Performing Organization Address City/State/[place] [address] ABO/Rh Typing (12/01/2019 3:55 AM EDT) athologist Signature ABORh Type AB Pos [facility] LABORATORY Specimen Anatomical Collection Method Collection Time Receive d Time (Source) Location / / Volume Laterality Blood specimen 12/01/2019 3:55 AM 020 4:15 (specimen) EDT AM EDT Resulting Agency Comment Spec In Lab Lewis Gee MD BLOOD BANK ORDERABLES Performing Organization Address City/[facility]/[place] [address] (ABNORMAL) Troponin (12/01/2019 3:55 AM EDT) athologist Signature Troponin-T 4.35 (H) 0.00 - [facility] 0.00 ng/mL [facility] LABORATORY Comment: result rechecked-slw The 99th percentile for Troponin T is le ss than 0.01 ng/mL, any detectable cTnT concentration using this assay should be considered elevated. According to the third universal definit ion of myocardial infarction the following criteria with a clinical prese ntation consistent with acute myocardial ischemia meets the diagnosis for a myocardial infarction (MN). Detection of a rise and/or fall of [...] additional sample may be indicated. Reference: Third Hartman Definition of Myocardial Infarction. Journal of the [place] [employer] 2012;60:1581-98 Specimen Anatomical Collection Method Collection Time Receive d Time (Source) Location / / Volume Laterality Blood specimen 12/01/2019 3:55 AM 020 4:00 (specimen) EDT AM EDT Resulting Agency Comment Spec In Lab Gretchen Yoon MD CHEMISTRY ORDERABLES Performing Organization Address City/[facility]/ZIP Code Phon e Number [address] Magnesium (12/01/2019 3:55 AM EDT) P athologist Signature Magnesium 0.96 0.69 - 1.07 [facility] mmol/L [facility] LABORATORY Specimen Anatomical Collection Method Collection Time Receive d Time (Source) Location / / Volume Laterality Blood specimen 12/01/2019 3:55 AM 020 4:00 (specimen) EDT AM EDT Resulting Agency Comment Spec In Lab Gretchen Yoon MD CHEMISTRY ORDERABLES Performing Organization Address City/State/[place] [address] (ABNORMAL) BMP w/fasting Glucose (12/01/2019 3:55 AM EDT) P athologist Signature Glucose 148 (H) 65 - 99 [facility] Fasting mg/dL [facility] LABORATORY Comment: ?Fasting* Glucose Interpretive C [...] of Diabetes Mellitus, Position Statement from the [place] [employer]. ??Diabete s Care, Volume 33, Supplement 1, Jul 2009 BUN 11 10 - 20 mg/dL [facility] LABORATORY Creatinine 0.96 0.80 - 1.50 mg/dL [facility] LABORATORY Sodium 132 (L) 135 - 145 mmol/L [facility] LABORATORY Potassium 4.0 3.5 - 5.0 mmol/L [facility] LABORATORY Comment: Please note: ??Patients with WBC >100,00 0 may have falsely elevated Potassium levels. ??For accurate Potassium quantif ication in these patients send serum separator tube (gold top) for subsequent determinations. ??Contact the Clinical Chemistry Laboratory if there are any qu estions. Chloride 105 98 - 107 mmol/L [facility] LABORATORY CO2 17 (L) 22 - 31 mmol/L [facility] LABORATORY Anion Gap 10 5 - 15 mmol/L [facility] LABORATORY Calcium 7.6 (L) 8.5 - 10.5 mg/dL [facility] LABORATORY Estimated GFR 78 >=60 mL/min/1.73 m?? [facility] LABORATORY Comment: The eGFR was calculated using the CKD-EP I equation. As with all creatinine based estimates of kidney function, eGFR values calculated with the CKD-EPI equation are not accurate in patients wi th acute kidney failure, extremes of body mass or the acutely ill. [email or web address] eGFR 91 >=60 mL/min/1.73 m?? [facility] LABORATORY Comment: The eGFR was calculated using the CKD-EP I equation. As with all creatinine based estimates of kidney function, eGFR values calculated with the CKD-EPI equation are not accurate in patients wi th acute kidney failure, extremes of body mass or the acutely ill. [email or web address] Specimen Anatomical Collection Method Collection Time Receive d Time (Source) Location / / Volume Laterality Blood specimen 12/01/2019 3:55 AM 020 4:00 (specimen) EDT AM EDT Resulting Agency Comment Spec In Lab Gretchen Yoon MD CHEMISTRY ORDERABLES Performing Organization Address City/State/ZIP Code [place] [address] (ABNORMAL) Hemogram (12/01/2019 3:55 AM EDT) [facility] Time Signature WBC 11.0 (H) 4.0 - 9.5 [facility] x10(3)/[facility] LABORATORY RBC 3.46 (L) 4.58 - [facility] 5.54 [facility] x10(6)/[facility] LABORATORY Hemoglobin 10.2 (L) 13.7 - [facility] 16.5 gm/dL [facility] LABORATORY Hematocrit 31.2 (L) 40.5 - [facility] 48.5 % [facility] LABORATORY MCV 90.2 82.9 - [facility] 93.1 [facility] LABORATORY MCH 29.5 27.5 - [facility] 32.1 pg [facility] LABORATORY MCHC 32.7 32.0 - [facility] 35.7 gm/dL [facility] LABORATORY Platelets 98 (L) 145 - 357 [facility] x10(3)/[facility] LABORATORY RDWSD 47.9 (H) 36.0 - [facility] 45.0 [facility] LABORATORY RDWCV 14.6 (H) 11.4 - [facility] 13.8 % [facility] LABORATORY MPV 12.3 7.6 - 12.9 [facility] LABORATORY nRBC % Auto 0.0 % [facility] LABORATORY nRBC Abs Auto 0.000 0.000 - [facility] 0.000 [facility] x10(3)/[facility] LABORATORY Specimen Anatomical Collection Method Collection Time Receive d Time (Source) Location / / Volume Laterality Blood specimen 12/01/2019 3:55 AM 020 4:00 (specimen) EDT AM EDT Resulting Agency Comment Spec In Lab Gretchen Yoon MD HEMATOLOGY ORDERABLES Performing Organization Address City/State/Z[place] [address] (ABNORMAL) BLOOD GAS 2 ARTERIAL (11/30/2019 10:39 PM EDT) Analysis Performed At [facility] Time Signature pH Art 7.45 7.35 - [facility] 7.45 [facility] LABORATORY pCO2 Art 23 (L) 35 - 45 [facility] LABORATORY pO2 Art 76 (L) 85 - 104 [facility] LABORATORY HCO3 Art 15.3 (L) 20.0 - [facility] 26.0 [facility] mmol/L [facility] LABORATORY BE Art -8.7 (L) -3.0 - 3.0 [facility] mmol/L [facility] LABORATORY Hgb Blood Gas 11.7 (L) 13.7 - [facility] 16.5 gm/dL [facility] O2HB Art 94.2 94.0 - [facility] 97.0 % [facility] LABORATORY COHB Art 0.5 % [facility] LABORATORY Comment: Nonsmokers: 0.5-1.5% COHB Smokers: Variable, but usually less than 10% Toxic: 20-30% COHB Lethal: Greater than 60% COHB METHB Art 0.6 <=1.5 % [facility] LABORATORY Na Whole Blood 133 (L) 135 - 145 mmol/L [facility] LABORATORY K Whole Blood 3.8 3.5 - 5.0 mmol/L [facility] LABORATORY Comment: Please note: Patients with WBC >100,000 may have falsely elevated Potassium levels. Contact the Clinical Chemistry L aboratory if there are any questions. ICa Whole Blood 1.10 (L) 1.15 - 1.33 mmol/L [facility] LABORATORY Comment: Note: ??Total bilirubin higher than 20 m g/dL may lead to falsely low ionized calcium. CL Whole Blood 109 (H) 98 - 107 mmol/L [facility] LABORATORY Gluc Whole Bld 120 65 - 199 mg/dL [facility] LABORATORY Comment: Diabetes: >=200 mg/dL plus symp toms. Lactate WB 0.8 0.5 - 2.2 mmol/L [facility] LABORATORY FIO2 Art 100 % [facility] LABORATORY PF Ratio Art 76 [facility] LABORATORY Specimen Anatomical Collection Method Collection Time Receive d Time (Source) Location / / Volume Laterality Blood specimen 11/30/2019 10:39 0 (specimen) PM EDT 10:39 PM EDT Gretchen Yoon MD CHEMISTRY ORDERABLES Performing Organization Address City/[facility]/[place] [address] EKG 12 Lead (11/30/2019 [...] (Bezet) Calculated P 12 degrees MUSE SYSTEM Van Calculated R 19 degrees MUSE SYSTEM Van Calculated T -47 degrees MUSE SYSTEM Van INTERPRETATION Sinus rhythm with Premature supraventricular complexes [...] Yoon MD ECG ORDERABLES Performing Organization Address City/[facility]/ZIP Code Phon e Number MUSE SYSTEM (ABNORMAL) Urinalysis Microscopic Exam (11/30/2019 8:40 PM EDT) P athologist Signature RBC UA 27 (H) 0 - 3 /HPF [facility] LABORATORY WBC UA 4 (H) 0 - 3 /HPF [facility] LABORATORY Hyaline Cast 3 (H) 0 - 2 /LPF [facility] LABORATORY Specimen (Source) Anatomical Collection Method Collection Time Re ceived Time Location / / Volume Laterality Urine specimen 11/30/2019 8:40 11/30/2019 obtained via PM EDT 10:51 PM EDT indwelling urinary catheter (specimen) Resulting Agency Comment Spec In Lab Rossy Winn MD URINE ORDERABLES Performing Organization Address City/[facility]/[place] [address] (ABNORMAL) Urinalysis with reflex Culture (11/30/2019 8:40 PM EDT) Patholo gist Method Time Signature Glucose UA Negative Negative [facility] mg/dL [facility] LAB[facility]ORY Protein UA Negative Negative [facility] mg/dL [facility] Bilirubin UA Negative Negative [facility] mg/dL [facility] LABORATORY Comment: Clinical correlation required for positi ve Urine Bilirubin results as false positive may occur with some drugs and d rug related products. If a false positive is suspected a serum total bili morales should be considered if clinically indicated. Urobilinogen UA Normal Normal mg/dL [facility] LABORATORY pH UA 5.5 5.0 - 8.0 [facility] LABORATORY Blood UA Moderate (A) Negative mg/dL [facility] LABORATORY Ketones UA 40 (A) Negative mg/dL [facility] LABORATORY Nitrite UA Negative Negative [facility] LABORATORY Leukocytes UA Trace (A) Negative [facility] LABORATORY Appearance UA Clear Clear [facility] LABORATORY Spec [place] UA 1.026 1.006 - 1.030 [facility] LABORATORY Color UA Yellow Yellow [facility] LABORATORY Culture Reflexed No [facility] LABORATORY Specimen (Source) Anatomical Collection Method Collection Time Re ceived Time Location / / Volume Laterality Urine specimen 11/30/2019 8:40 11/30/2019 obtained via PM EDT 10:51 PM EDT indwelling urinary catheter (specimen) Resulting Agency Comment Spec In Lab Gretchen Yoon MD URINE ORDERABLES Performing Organization Address City/State/Z[place] [address] (ABNORMAL) pro-Brain Natriuretic Peptide (11/30/2019 8:30 PM EDT) P athologist Signature ProBNP 2,802 (H) <=125 [facility] pg/mL [facility] LABORATORY Specimen Anatomical Collection Method Collection Time Receive d Time (Source) Location / / Volume Laterality Blood specimen Venous Draw / 11/30/2019 8:30 PM 2019 8:36 (specimen) Unknown EDT PM EDT Resulting Agency Comment Spec In Lab Rossy Winn MD CHEMISTRY ORDERABLES Performing Organization Address City/[facility]/[place] [address] (ABNORMAL) Troponin (11/30/2019 8:30 PM EDT) athologist Signature Troponin-T 5.04 (H) 0.00 - [place] 0.00 ng/mL [facility] LABOR[facility]ORY Comment: The 99th percentile for Troponin T is le ss than 0.01 ng/mL, any detectable cTnT concentration using this assay should be considered elevated. According to the third universal definit ion of myocardial infarction the following criteria with a clinical prese ntation consistent with acute myocardial ischemia meets the diagnosis for a myocardial infarction (MN). Detection of a rise and/or fall of [...] additional sample may be indicated. Reference: Third Hartman Definition of Myocardial Infarction. Journal of the [place] [employer] 2012;60:1581-98 Specimen Anatomical Collection Method Collection Time Receive d Time (Source) Location / / Volume Laterality Blood specimen Venous Draw / 11/30/2019 8:30 PM 2019 8:36 (specimen) Unknown EDT PM EDT Resulting Agency Comment Spec In Lab Rossy Winn MD CHEMISTRY ORDERABLES Performing Organization Address City/[facility]/Z[place] [address] Magnesium (11/30/2019 8:30 PM EDT) athologist Signature Magnesium 0.79 0.69 - 1.07 [place] mmol/L [facility] LABORATORY Specimen Anatomical Collection Method Collection Time Receive d Time (Source) Location / / Volume Laterality Blood specimen 11/30/2019 8:30 PM 020 8:35 (specimen) EDT PM EDT Resulting Agency Comment Spec In Lab Gretchen Yoon MD CHEMISTRY ORDERABLES Performing Organization Address City/State/Z[place] [address] (ABNORMAL) Basic Metabolic Panel (non-fasting) (11/30/2019 8:30 PM EDT) athologist Signature Glucose Lvl 132 65 - 199 [facility] mg/dL [facility] LABORATORY Comment: Diabetes: >=200 mg/dL plus symp toms BUN 12 10 - 20 mg/dL [facility] LABORATORY Creatinine 0.94 0.80 - 1.50 mg/dL [facility] LABORATORY Sodium 136 135 - 145 mmol/L [facility] Potassium 3.9 3.5 - 5.0 mmol/L [facility] Comment: Please note: ??Patients with WBC >100,00 0 may have falsely elevated Potassium levels. ??For accurate Potassium quantif ication in these patients send serum separator tube (gold top) for subsequent determinations. ??Contact the Clinical Chemistry Laboratory if there are any qu estions. Chloride 108 (H) 98 - 107 mmol/L [facility] LABORATORY CO2 17 (L) 22 - 31 mmol/L [facility] LABORATORY Anion Gap 11 5 - 15 mmol/L [facility] LABORATORY Calcium 7.9 (L) 8.5 - 10.5 mg/dL [facility] Estimated GFR 80 >=60 mL/min/1.73 m?? [facility] Comment: The eGFR was calculated using the CKD-EP I equation. As with all creatinine based estimates of kidney function, eGFR values calculated with the CKD-EPI equation are not accurate in patients wi th acute kidney failure, extremes of body mass or the acutely ill. [email or web address] eGFR 93 >=60 mL/min/1.73 m?? [facility] Comment: The eGFR was calculated using the CKD-EP I equation. As with all creatinine based estimates of kidney function, eGFR values calculated with the CKD-EPI equation are not accurate in patients wi th acute kidney failure, extremes of body mass or the acutely ill. [email or web address] Specimen Anatomical Collection Method Collection Time Receive d Time (Source) Location / / Volume Laterality Blood specimen 11/30/2019 8:30 PM 020 8:35 (specimen) EDT PM EDT Resulting Agency Comment Spec In Lab Gretchen Yoon MD CHEMISTRY ORDERABLES Performing Organization Address City/[facility] [place] [address] Blood culture (11/30/2019 8:30 PM EDT) Patholo gist Method Time Signature Blood Culture No growth MELINA WHITTENCOCK at 5 days. [facility] Specimen Anatomical Collection Method Collection Time Receive d Time (Source) Location / / Volume Laterality Blood specimen 11/30/2019 8:30 PM 020 9:40 (specimen) EDT PM EDT Comment: L HAND Resulting Agency Comment Spec In Lab Gretchen Yoon MD MICROBIOLOGY - BLOOD ORDERAB LES Performing Organization Address City/[facility]/[place] [address] Blood culture (11/30/2019 8:30 PM EDT) Patholo gist Method Time Signature Blood Culture No growth MELINA WHITTENCOCK at 5 days. [facility] Specimen Anatomical Collection Method Collection Time Receive d Time (Source) Location / / Volume Laterality Blood specimen 11/30/2019 8:30 PM 020 9:40 (specimen) EDT PM EDT Comment: R HAND Resulting Agency Comment Spec In Lab Gretchen Yoon MD MICROBIOLOGY - BLOOD ORDERAB LES Performing Organization Address [facility] [place] [address] XR Chest One View [...] Time Signature pH Art 7.45 7.35 - [facility] 7.45 [facility] pCO2 Art 27 (L) 35 - 45 [facility] mmHg [facility] pO2 Art 68 (L) 85 - 104 [facility] LABORATORY HCO3 Art 18.2 (L) 20.0 - [facility] 26.0 [facility] mmol/[facility] BE Art -5.9 (L) -3.0 - 3.0 [facility] mmol/L [facility] Hgb Blood Gas 12.4 (L) 13.7 - [facility] 16.5 gm/dL [facility] O2HB Art 93.1 (L) 94.0 - [facility] 97.0 % [facility] COHB Art 0.8 % [facility] Comment: Nonsmokers: 0.5-1.5% COHB Smokers: Variable, but usually less than 10% Toxic: 20-30% COHB Lethal: Greater than 60% COHB METHB Art 0.4 <=1.5 % [facility] Na Whole Blood 133 (L) 135 - 145 mmol/L [facility] K Whole Blood 3.6 3.5 - 5.0 mmol/L [facility] Comment: Please note: Patients with WBC >100,000 may have falsely elevated Potassium levels. Contact the Clinical Chemistry L aboratory if there are any questions. ICa Whole Blood 1.13 (L) 1.15 - 1.33 mmol/L [facility] Comment: Note: ??Total bilirubin higher than 20 m g/dL may lead to falsely low ionized calcium. CL Whole Blood 108 (H) 98 - 107 mmol/L [facility] Gluc Whole Bld 121 65 - 199 mg/dL [facility] Comment: Diabetes: >=200 mg/dL plus symp toms. Lactate WB 1.2 0.5 - 2.2 mmol/L [facility] Flow Art 5.[address] [facility] Specimen Anatomical Collection Method Collection Time Receive d Time (Source) Location / / Volume Laterality Blood specimen 11/30/2019 8:09 PM 020 8:09 (specimen) EDT PM EDT Gretchen Yoon MD CHEMISTRY ORDERABLES Performing Organization Address City/State/ZIP [place] [address] Angiogram [place] [facility] [place] (11/30/2019 4:36 PM EDT) Anatomical [...] CT HEAD WO CONTRAST (GENERIC), CT ANGIOGRAM [place] [facility] [place] CLINICAL HISTORY: Headache, intracranial hemorrhage suspected F/U on known ICH - assessing for propaga tion TECHNIQUE: CT head performed without intravenous co ntrast administration. CT angiogram [place] of [place] 65 cc Omnipaque 350 administered [...] HEAD WO CONTRAST (GENERI C), CT ANGIOGRAM [place] [facility] [place] CLINICAL HISTORY: Headache, intracranial hemorrhage suspected F/U on known ICH - assessing for propaga tion TECHNIQUE: CT head performed without intravenous co ntrast administration. CT angiogram [place] 65 cc Omnipaque 350 administered [...] CT HEAD WO CONTRAST (GENERIC), CT ANGIOGRAM [place] CLINICAL HISTORY: Headache, intracranial hemorrhage suspected F/U on known ICH - assessing for propaga tion TECHNIQUE: CT head performed without intravenous co ntrast administration. CT angiogram [place] 65 cc Omnipaque 350 administered [...] HEAD WO CONTRAST (GENERI C), CT ANGIOGRAM [place] CLINICAL HISTORY: Headache, intracranial hemorrhage suspected F/U on known ICH - assessing for propaga tion TECHNIQUE: CT head performed without intravenous co ntrast administration. CT angiogram [place] 65 cc Omnipaque 350 administered [...] below. Gretchen Yoon MD IMG CT ORDERABLES EKG [...] 453 ms MUSE SYSTEM (Bezet) Calculated P Van 52 degrees MUSE SYSTEM Calculated R Van 5 degrees MUSE SYSTEM Calculated T Van -60 degrees MUSE SYSTEM INTERPRETATION Sinus rhythm [...] Nilo ? (Age): 1945(74y) Med Rec#: ? [id number] ?Sex: ?M ? Site Loc: ? [facility] ?Ht / Wt: ??178(cm)/64(kg) Pt. Loc: ?CCU ? BSA: ?1.8 Study Date: ?? 11/30/2019 ?Pt. Type: Inpatient Tape: ? Referring: GILMER Reading: Tello Mejia ([id number]) Fire Control Technician: Friend, Lolita Diagnosis: *ST elevation (STEMI) myocardial [...] Vmax ?0.58 ? m/sec ? MV deceleration tncl892.05 ? m sec ? MV A-wave Vmax [...] ? Mid-Inferior ?Akinetic ? Mid-Inferoseptal ?Normal ? [place]-Septal ? Normal ? [place]-Anterior ? Normal ? [place]-Lateral ?Normal ? [place]-Inferior ? Hypokinetic ? [place]-Tip ?Normal ? This report has been electronically sign ed by: _ Tello Mejia MD ? 11/30/2019 12: 45:27 Images reviewed and interpretation [facility] Cardiac Ultrasound Laboratory Procedure Note Tello Mejia MD - 11/30/2019Formatti ng of this note might be different from the original. Procedure: Transthoracic Echocardiogram Patient: RITA ACOSTA(Age): [birth year](74y) Med Rec#: [id number] Sex: M Site Loc: [facility] Ht / Wt: 178(cm)/64(kg) Pt. Loc: [facility] BSA: 1.8 Study Date: 11/30/2019 Pt. Type: Inpatie nt Tape: Referring: VANGIEJ Reading: Tello Mejia ([id number]) Fire Control Technician: Eve Lolita Diagnosis: *ST elevation (STEMI) myocardial [...] MV E-wave Vmax 0.58 m/sec MV deceleration dzrr332.05 msec MV A-wave Vmax 0.74 m/sec MV [...] Hypokinetic Mid-Posterolateral Hypokinetic Mid-Inferior Akinetic Mid-Inferoseptal Normal [place]-Septal Normal [place]-Anterior Normal [place]-Lateral Normal [place]-Inferior Hypokinetic [place]-Tip Normal This report has been electronically sign ed by: _ Tello Mejia MD 11/30/2019 12:45:27 Images reviewed and interpretation verif d [facility] Cardiac Ultrasound Laboratory Gretchen Yoon MD ECHO [...] contact e number below. ? Narrative 11/30/2019 12:04 PM EDT EXAMINATION: CT [...] Magnesium (11/30/2019 8:30 AM EDT) athologist [facility] [place] Magnesium 0.88 0.69 - 1.07 [facility] mmol/L [facility] Specimen Anatomical Collection Method Collection Time Receive d Time (Source) Location / / Volume Laterality Blood specimen Venous Draw / 11/30/2019 8:30 AM 2019 8:37 (specimen) Unknown EDT AM EDT Resulting Agency Comment Spec In Lab Rossy Winn MD CHEMISTRY ORDERABLES Performing Organization Address City/State/[place] [address] (ABNORMAL) CK (11/30/2019 8:30 AM EDT) athologist [facility] [place] CK, Total 1,645 (H) 0 - 200 [facility]L [facility] Specimen Anatomical Collection Method Collection Time Receive d Time (Source) Location / / Volume Laterality Blood specimen 11/30/2019 8:30 AM 020 8:32 (specimen) EDT AM EDT Resulting Agency Comment Spec In Lab Gretchen Yoon MD CHEMISTRY ORDERABLES Performing Organization Address City/[facility]/ZIP [facility] [place] [address] (ABNORMAL) Troponin (11/30/2019 8:30 AM EDT) athologist [facility] [place] Troponin-T 8.04 (H) 0.00 - MELINA OLIVIA 0.00 ng/mL [facility] Comment: result rechecked-rancho The 99th percentile for Troponin T is le ss than 0.01 ng/mL, any detectable cTnT concentration using this assay should be considered elevated. According to the third universal definit ion of myocardial infarction the following criteria with a clinical prese ntation consistent with acute myocardial ischemia meets the diagnosis for a myocardial infarction (MN). Detection of a rise and/or fall of [...] additional sample may be indicated. Reference: Third Hartman Definition of Myocardial Infarction. Journal of the [place] [employer] 2012;60:1581-98 Specimen Anatomical Collection Method Collection Time Receive d Time (Source) Location / / Volume Laterality Blood specimen 11/30/2019 8:30 AM 020 8:32 (specimen) EDT AM EDT Resulting Agency Comment Spec In Lab Gretchen Yoon MD CHEMISTRY ORDERABLES Performing Organization Address City/State/ZIP [place] [address] EKG 12 Lead (11/30/2019 7:57 AM EDT) Component Value Ref Range Test Analysis Performed Pathologis t Method Time At Signature Ventricular rate 64 BPM MUSE SYSTEM Atrial Rate 64 BPM MUSE SYSTEM P-R Interval 132 ms MUSE SYSTEM QRS Duration 78 ms MUSE SYSTEM Q-T Interval 420 ms MUSE SYSTEM QTC Calculated 433 ms MUSE SYSTEM (Bezet) Calculated P Van 28 degrees MUSE SYSTEM Calculated R Van 7 degrees MUSE SYSTEM Calculated T Van -33 degrees MUSE SYSTEM INTERPRETATION Sinus rhythm [...] Signature Glucose 147 (H) 65 - 99 [facility] Fasting mg/dL [facility] Comment: ?Fasting* Glucose Interpretive C [...] of Diabetes Mellitus, Position Statement from the [place] [employer]. ??Diabete s Care, Volume 33, Supplement 1, Jul 2009 BUN 13 10 - 20 mg/dL [facility] Creatinine 0.90 0.80 - 1.50 mg/dL [facility] Sodium 135 135 - 145 mmol/L [facility] Potassium 3.9 3.5 - 5.0 mmol/L [facility] Comment: Please note: ??Patients with WBC >100,00 0 may have falsely elevated Potassium levels. ??For accurate Potassium quantif ication in these patients send serum separator tube (gold top) for subsequent determinations. ??Contact the Clinical Chemistry Laboratory if there are any qu estions. Chloride 108 (H) 98 - 107 mmol/L [facility] CO2 16 (L) 22 - 31 mmol/L [facility] Anion Gap 11 5 - 15 mmol/L [facility] Calcium 7.5 (L) 8.5 - 10.5 mg/dL [facility] Estimated GFR 84 >=60 mL/min/1.73 m?? [facility] Comment: The eGFR was calculated using the CKD-EP I equation. As with all creatinine based estimates of kidney function, eGFR values calculated with the CKD-EPI equation are not accurate in patients wi th acute kidney failure, extremes of body mass or the acutely ill. [email or web address] eGFR 98 >=60 mL/min/1.73 m?? [facility] Comment: The eGFR was calculated using the CKD-EP I equation. As with all creatinine based estimates of kidney function, eGFR values calculated with the CKD-EPI equation are not accurate in patients wi th acute kidney failure, extremes of body mass or the acutely ill. [email or web address] – TALIHINAnkf Specimen Anatomical Collection Method Collection Time Receive d Time (Source) Location / / Volume Laterality Blood specimen 11/30/2019 2:15 AM 020 2:29 (specimen) EDT AM EDT Resulting Agency Comment Spec In Lab Gretchen Yoon MD CHEMISTRY ORDERABLES Performing Organization Address City/State/ZIP Code Phon e Number [place] [id number] (ABNORMAL) Hemogram (11/30/2019 2:15 AM EDT) Analysis Performed At Patho logist Time Signature WBC 11.2 (H) 4.0 - 9.5 [facility] x10(3)/[facility] LABORATORY RBC 3.83 (L) 4.58 - [facility] 5.54 [facility] x10(6)/[facility] LABORATORY Hemoglobin 11.4 (L) 13.7 - [facility] 16.5 gm/dL [facility] Hematocrit 35.2 (L) 40.5 - [facility] 48.5 % [facility] MCV 91.9 82.9 - [facility] 93.1 fL [facility] MCH 29.8 27.5 - [facility] 32.1 [facility] LABORATORY MCHC 32.4 32.0 - MELINA WHITTENCOCK 35.7 gm/dL [facility] Platelets 122 (L) 145 - 357 MELINA MARSHOLIVIA x10(3)/[facility] LABORATORY RDWSD 49.8 (H) 36.0 - MELINA WHITTENCOCK 45.0 [facility] LABORATORY RDWCV 14.8 (H) 11.4 - MELINA OLIVIA 13.8 % [facility] MPV 12.1 7.6 - 12.9 MELINA MONAE [facility] LABORATORY nRBC % Auto 0.0 % [facility] nRBC Abs Auto 0.000 0.000 - MELINA MARSHOLIVIA 0.000 [facility] x10(3)/[facility] LABORATORY Specimen Anatomical Collection Method Collection Time Receive d Time (Source) Location / / Volume Laterality Blood specimen 11/30/2019 2:15 AM 020 2:29 (specimen) EDT AM EDT Resulting Agency Comment Spec In Lab Gretchen Yoon MD HEMATOLOGY ORDERABLES Performing Organization Address City/[facility]/ZIP Code Phon e Number [address] (ABNORMAL) CK (11/30/2019 2:15 AM EDT) [facility] CK, Total 1,969 (H) 0 - 200 [facility]L [facility] Specimen Anatomical Collection Method Collection Time Receive d Time (Source) Location / / Volume Laterality Blood specimen 11/30/2019 2:15 AM 020 2:29 (specimen) EDT AM EDT Resulting Agency Comment Spec In Lab Gretchen Yoon MD CHEMISTRY ORDERABLES Performing Organization Address City/State/[place] [address] (ABNORMAL) Troponin (11/30/2019 2:15 AM EDT) [facility] Trop[facility]-T 11.73 (H) 0.00 - MELINA WHITTENCOCK 0.00 ng/mL [facility] Comment: result rechecked-slw The 99th percentile for Troponin T is le ss than 0.01 ng/mL, any detectable cTnT concentration using this assay should be considered elevated. According to the third universal definit ion of myocardial infarction the following criteria with a clinical prese ntation consistent with acute myocardial ischemia meets the diagnosis for a myocardial infarction (MN). Detection of a rise and/or fall of [...] additional sample may be indicated. Reference: Third Hartman Definition of Myocardial Infarction. Journal of the [place] College [employer] 2012;60:1581-98 result rechecked- The 99th percentile for Troponin T is le ss than 0.01 ng/mL, any detectable cTnT concentration using this assay should be considered elevated. According to the third universal definit ion of myocardial infarction the following criteria with a clinical prese ntation consistent with acute myocardial ischemia meets the diagnosis for a myocardial infarction (MN). Detection of a rise and/or fall of [...] additional sample may be indicated. Reference: Third Hartman Definition of Myocardial Infarction. Journal of the [place] College [employer] 2012;60:1581-98 Corrected from 11.73 ng/ml [HI] on 11/29 3:11:51 EDT by Debi Hawley Specimen Anatomical Collection Method Collection Time Receive d Time (Source) Location / / Volume Laterality Blood specimen 11/30/2019 2:15 AM 020 2:29 (specimen) EDT AM EDT Resulting Agency Comment Spec In Lab Gretchen Yoon MD CHEMISTRY ORDERABLES Performing Organization Address City/[facility]/ZIP Code Phon e Number [address] LDL Cholesterol, Direct (11/30/2019 2:15 AM EDT) P athologist Signature LDL Chol 156 mg/dL [facility]ORY Comment: Lowest Risk: <100 mg/dL Lower Risk: 100-129 mg/dL Borderline High Risk: 130-159 mg/dL High Risk: 160-189 mg/dL Very High Risk: >wi=891 mg/dL Specimen Anatomical Collection Method Collection Time Receive d Time (Source) Location / / Volume Laterality Blood specimen 11/30/2019 2:15 AM 020 2:29 (specimen) EDT AM EDT Resulting Agency Comment Spec In Lab Gretchen Yoon MD CHEMISTRY ORDERABLES Performing Organization Address City/[facility]/ZIP Code Phon e Number [address] (ABNORMAL) Hemoglobin A1c (11/30/2019 2:15 AM EDT) Analysis Performed At Patho logist Time Signature Hemoglobin A1C 6.3 (H) 4.3 - 5.6 [facility] Comment: Reference Range: 4.3 - [...] Mellitus, Diabetes Care 2013; 36: Suppl. 1, E48-21 Est Avg Gluc See note mg/dL [facility] Comment: Estimated Average Glucose [...] with hemoglobinopathies. Additional resources are available on [facility] ADA website. Kiko CARBAJAL, Jenn J, Silas R, et al. ??Tr anslating the A1C assay into estimated average glucose values. ??Diabetes Care 2008:31(8):0089-8953. Specimen Anatomical Collection Method Collection Time Receive d Time (Source) Location / / Volume Laterality Blood specimen 11/30/2019 2:15 AM 020 2:29 (specimen) EDT AM EDT Resulting Agency Comment Spec In Lab Gretchen Yoon MD CHEMISTRY ORDERABLES Performing Organization Address City/State/Z[place] [address] Lipid Panel (Reflex Direct LDL) (11/30/2019 2:15 AM EDT) athologist Signature Chol, Total 195 mg/dL [facility] Comment: Lower Risk: <200 mg/dL Average Risk: 200-239 mg/dL Higher Risk: >jq=663 mg/dL Triglycerides 93 mg/dL [facility] Comment: Average Risk/Lower Risk: <150 mg/dL Borderline High Risk: 150-199 mg/dL High Risk: 200-499 mg/dL Very High Risk: >ym=132 mg/dL HDL 32 mg/dL [facility] Comment: Males: ?? Higher Risk: <40 mg/dL Females: ?? HIgher Risk: <50 mg/dL LDL Cholesterol 144 mg/dL [facility] Comment: Lowest Risk: <100 mg/dL Lower Risk: 100-129 mg/dL Borderline High Risk: 130-159 mg/dL High Risk: 160-189 mg/dL Very High Risk: >zb=908 mg/dL Chol/HDL Ratio 6.1 ratio [facility] Lipid Interpretation See Note [facility] Comment: Lipid management should be guided by a p atient? s ASCVD risk, goals and preferences. ACC/AHA Guidelines recommend high intens ity statin if clinical ASCVD or LDL greater than or equal to 190 mg/dL. http://[employer]/UJQ-MVK-Xfwcdknij Adults aged 40-75 with LDL 70-189 mg/dL should have their 10 year ASCVD risk estimated with the ACC/AHA ASCVD risk es timator http://tools.acc.org/HZFUD-Fmbc-Wompozkd r/ Statin should be discussed if risk [...] Organization Address City/State/Z[place] [address] (ABNORMAL) CK (11/29/2019 6:35 PM EDT) athologist Signature CK, Total 2,780 (H) 0 - 200 [facility] unit/L [facility] Specimen Anatomical Collection Method Collection Time Receive d Time (Source) Location / / Volume Laterality Blood specimen 11/29/2019 6:35 PM 020 6:53 (specimen) EDT PM EDT Resulting Agency Comment Spec In Lab Gretchen Yoon MD CHEMISTRY ORDERABLES Performing Organization Address City/State/Z[place] [address] (ABNORMAL) Troponin (11/29/2019 6:35 PM EDT) athologist Signature Troponin-T 17.60 (H) 0.00 - [facility] 0.00 ng/mL [facility] Comment: result rechecked-az The 99th percentile for Troponin T is le ss than 0.01 ng/mL, any detectable cTnT concentration using this assay should be considered elevated. According to the third universal definit ion of myocardial infarction the following criteria with a clinical prese ntation consistent with acute myocardial ischemia meets the diagnosis for a myocardial infarction (MN). Detection of a rise and/or fall of [...] additional sample may be indicated. Reference: Third Hartman Definition of Myocardial Infarction. Journal of the [place] College of Cardiology 2012;60:1581-98 Specimen Anatomical Collection Method Collection Time Receive d Time (Source) Location / / Volume Laterality Blood specimen 11/29/2019 6:35 PM 020 6:53 (specimen) EDT PM EDT Resulting Agency Comment Spec In Lab Gretchen Yoon MD CHEMISTRY ORDERABLES Performing Organization Address City/State/Z[place] [address] EKG 12 Lead (11/29/2019 3:58 PM EDT) [facility] gist Method Time Signature Ventricular rate 73 BPM MUSE SYSTEM Atrial Rate 73 BPM MUSE SYSTEM P-R Interval 152 ms MUSE SYSTEM QRS Duration 84 ms MUSE SYSTEM Q-T Interval 404 ms MUSE SYSTEM QTC Calculated 445 ms MUSE SYSTEM (Bezet) Calculated P Van 50 degrees MUSE SYSTEM Calculated R Van -4 degrees MUSE SYSTEM Calculated T Van 19 degrees MUSE SYSTEM INTERPRETATION Sinus rhythm [...] CLINICAL HISTORY: stemi (as entered by o [facility] provider in the order requisition) [...] lung apex is excluded from the imaged [id number]. IMPRESSION: 1. ??New right internal jugular pulmonar [...] lung apex is excluded from the imaged [id number]. Procedure Note Estefani Harris MD - 11/29/2019Formattin [...] lung apex is excluded from the imaged [id number]. IMPRESSION 1. New right internal jugular pulmonary [...] (ABNORMAL) Differential, Automated (11/29/2019 2:32 PM EDT) [facility] Method Time Signature Neutrophils % 83.8 % [facility] Neutr Abs (ANC) 12.12 (H) 1.70 - [facility] 6.10 [facility] x10(3)/[facility] LABORATORY Lymphocytes % 9.1 % [facility] Lymphocytes Abs 1.3 0.9 - 3.2 [facility] x10(3)/[facility] LABORATORY Monocytes % 6.2 % [facility] Monocyte Abs 0.9 0.3 - 0.9 [facility] x10(3)/[facility] LABORATORY Eosinophils % 0.0 % [facility] Eosinophils Abs 0.0 0.0 - 0.4 [facility] x10(3)/[facility] LABORATORY Basophils % 0.3 % [facility] Basophils Abs 0.0 0.0 - 0.1 [facility] x10(3)/[facility] LABORATORY Immature Gran % 0.60 % [facility] Comment: Immature granulocytes(IG's)percentage an d absolute count will include metamyelocytes, myelocytes, and promyelo cytes. Blood smears from CBCs yielding IG's will be scanned manually for concor dance. If this scan disagrees with the automated IG or if promyelocytes are not ed, a manual differential will be performed. Pita Gran Abs 0.08 (H) 0.00 - 0.04 x10(3)/[facility] LABORATORY Specimen Anatomical Collection Method Collection Time Receive d Time (Source) Location / / Volume Laterality Blood specimen 11/29/2019 2:32 PM 020 2:55 (specimen) EDT PM EDT Resulting Agency Comment Spec In Lab Darrell Glsagow MD HEMATOLOGY ORDERABLES Performing Organization Address City/State/Z[place] [address] (ABNORMAL) Hemogram (11/29/2019 2:32 PM EDT) Analysis Performed At Patho logist Time Signature WBC 14.5 (H) 4.0 - 9.5 [facility] x10(3)/[facility] LABORATORY RBC 4.53 (L) 4.58 - [facility].54 [facility] x10(6)/[facility] LABORATORY Hemoglobin 13.1 (L) 13.7 - [facility] 16.5 gm/dL [facility] LABORATORY Hematocrit 40.8 40.5 - [facility] 48.5 % [facility] LABORATORY MCV 90.1 82.9 - [facility] 93.1 [facility] LABORATORY MCH 28.9 27.5 - [facility] 32.1 pg [facility] LABORATORY MCHC 32.1 32.0 - [facility] 35.7 gm/dL [facility] LABORATORY Platelets 184 145 - 357 [facility] x10(3)/[facility] LABORATORY RDWSD 47.8 (H) 36.0 - [facility] OLIVIA 45.0 [facility] LABORATORY RDWCV 14.5 (H) 11.4 - [facility] OLIVIA 13.8 % [facility] LABORATORY MPV 11.9 7.6 - 12.9 [facility] nRBC % Auto 0.0 % [facility] LABORATORY nRBC Abs Auto 0.000 0.000 - [place] 0.000 [facility] x10(3)/[facility] LABORATORY Specimen Anatomical Collection Method Collection Time Receive d Time (Source) Location / / Volume Laterality Blood specimen 11/29/2019 2:32 PM 020 2:55 (specimen) EDT PM EDT Resulting Agency Comment Spec In Lab Darrell Glasgow MD HEMATOLOGY ORDERABLES Performing Organization Address City/State/ZIP Code Phon e Number [address] (ABNORMAL) CK (11/29/2019 2:32 PM EDT) athologist Signature CK, Total 3,282 (H) 0 - 200 [facility] unit/L [facility] LABORATORY Specimen Anatomical Collection Method Collection Time Receive d Time (Source) Location / / Volume Laterality Blood specimen 11/29/2019 2:32 PM 020 2:32 (specimen) EDT PM EDT Resulting Agency Comment Spec In Lab Gretchen Yoon MD CHEMISTRY ORDERABLES Performing Organization Address City/[facility] [place] [address] (ABNORMAL) Troponin (11/29/2019 2:32 PM EDT) athologist Signature Troponin-T 20.33 (H) 0.00 - [place] OL[place] 0.00 ng/mL [facility] LABORATORY Comment: The 99th percentile for Troponin T is le ss than 0.01 ng/mL, any detectable cTnT concentration using this assay should be considered elevated. According to the third universal definit ion of myocardial infarction the following criteria with a clinical prese ntation consistent with acute myocardial ischemia meets the diagnosis for a myocardial infarction (MN). Detection of a rise and/or fall of [...] additional sample may be indicated. Reference: Third Hartman Definition of Myocardial Infarction. Journal of the [place] [employer] 2012;60:1581-98 Specimen Anatomical Collection Method Collection Time Receive d Time (Source) Location / / Volume Laterality Blood specimen 11/29/2019 2:32 PM 020 2:32 (specimen) EDT PM EDT Resulting Agency Comment Spec In Lab Gretchen Yoon MD CHEMISTRY ORDERABLES Performing Organization Address [facility] [place] [address] (ABNORMAL) APTT (11/29/2019 2:32 PM EDT) P athologist Signature PTT 114 25 - 37 [facility] (Critical) [facility] LABORATORY Comment: Critical Result called by ?? [...] Yoon MD HEMATOLOGY ORDERABLES Performing Organization Address [facility] [place] [address] (ABNORMAL) Prothrombin Time (11/29/2019 2:32 PM EDT) P athologist Signature PT 13.5 (H) 9.4 - 12.5 [facility] LABORATORY INR 1.2 [facility] LABORATORY Comment: An INR <2.0 indicates [...] Organization Address City/State/[place] [address] (ABNORMAL) Hepatic Function Panel (11/29/2019 2:32 PM EDT) P athologist Signature Total Protein 6.3 6.1 - 8.0 [facility] gm/dL [facility] LABORATORY Albumin 3.6 3.2 - 5.2 [facility] gm/dL [facility] LABORATORY AST 257 (H) 0 - 39 [facility]L [facility] LABORATORY ALT 50 0 - 55 [facility]/L [facility] LABORATORY Alk Phos 84 40 - 130 [facility]/L [facility] LABORATORY Total 0.3 0.2 - 1.3 [facility] Bilirubin mg/dL [facility] LABORATORY Bili, Direct 0.1 0.0 - 0.3 [facility] OLIVIA mg/dL [facility] LABORATORY Specimen Anatomical Collection Method Collection Time Receive d Time (Source) Location / / Volume Laterality Blood specimen 11/29/2019 2:32 PM 020 2:32 (specimen) EDT PM EDT Resulting Agency Comment Spec In Lab Gretchen Yoon MD CHEMISTRY ORDERABLES Performing Organization Address City/[facility]/[place] [address] (ABNORMAL) pro-Brain Natriuretic Peptide (11/29/2019 2:32 PM EDT) P athologist Signature ProBNP 272 (H) <=125 pg/mL [facility] LABORATORY Specimen Anatomical Collection Method Collection Time Receive d Time (Source) Location / / Volume Laterality Blood specimen 11/29/2019 2:32 PM 020 2:32 (specimen) EDT PM EDT Resulting Agency Comment Spec In Lab Gretchen Yoon MD CHEMISTRY ORDERABLES Performing Organization Address City/[facility]/ZIP Code Phon e Number [place] Magnesium (11/29/2019 2:32 PM EDT) athologist Signature Magnesium 0.76 0.69 - 1.07 [facility] mmol/L [facility] LABORATORY Specimen Anatomical Collection Method Collection Time Receive d Time (Source) Location / / Volume Laterality Blood specimen 11/29/2019 2:32 PM 020 2:32 (specimen) EDT PM EDT Resulting Agency Comment Spec In Lab Gretchen Yoon MD CHEMISTRY ORDERABLES Performing Organization Address City/State/ZIP Code Phon e Number [address] (ABNORMAL) Basic Metabolic Panel (non-fasting) (11/29/2019 2:32 PM EDT) athologist Signature Glucose Lvl 149 65 - 199 [facility] mg/dL [facility] LABORATORY Comment: Diabetes: >=200 mg/dL plus symp toms BUN 16 10 - 20 mg/dL [facility] LABORATORY Creatinine 0.94 0.80 - 1.50 mg/dL [facility] LABORATORY Sodium 135 135 - 145 mmol/L [facility] LABORATORY Potassium 4.5 3.5 - 5.0 mmol/L [facility] LABORATORY Comment: Please note: ??Patients with WBC >100,00 0 may have falsely elevated Potassium levels. ??For accurate Potassium quantif ication in these patients send serum separator tube (gold top) for subsequent determinations. ??Contact the Clinical Chemistry Laboratory if there are any qu estions. Chloride 105 98 - 107 mmol/L [facility] LABORATORY CO2 15 (L) 22 - 31 mmol/L [facility] LABORATORY Anion Gap 15 5 - 15 mmol/L [facility] LABORATORY Calcium 8.0 (L) 8.5 - 10.5 mg/dL [facility] LABORATORY Estimated GFR 80 >=60 mL/min/1.73 m?? [facility] LABORATORY Comment: The eGFR was calculated using the CKD-EP I equation. As with all creatinine based estimates of kidney function, eGFR values calculated with the CKD-EPI equation are not accurate in patients wi th acute kidney failure, extremes of body mass or the acutely ill. [email or web address]IHINAnkf eGFR 93 >=60 mL/min/1.73 m?? [facility] LABORATORY Comment: The eGFR was calculated using the CKD-EP I equation. As with all creatinine based estimates of kidney function, eGFR values calculated with the CKD-EPI equation are not accurate in patients wi th acute kidney failure, extremes of body mass or the acutely ill. [email or web address]AL[facility]INAnkf Specimen Anatomical Collection Method Collection Time Receive d Time (Source) Location / / Volume Laterality Blood specimen 11/29/2019 2:32 PM 020 2:32 (specimen) EDT PM EDT Resulting Agency Comment Spec In Lab Gretchen Yoon MD CHEMISTRY ORDERABLES Performing Organization Address City/[facility] [place] [address] EKG 12 Lead (11/29/2019 11:38 AM EDT) [facility] gist Method Time Signature Ventricular rate 60 BPM MUSE SYSTEM Atrial Rate 60 BPM MUSE SYSTEM P-R Interval 140 ms MUSE SYSTEM QRS Duration 86 ms MUSE SYSTEM Q-T Interval 474 ms MUSE SYSTEM QTC Calculated 474 ms MUSE SYSTEM (Bezet) Calculated P Van 48 degrees MUSE SYSTEM Calculated R Van 14 degrees MUSE SYSTEM Calculated T Van 58 degrees MUSE SYSTEM INTERPRETATION Normal sinus [...] Yoon MD ECG ORDERABLES Performing Organization Address City/[facility] Phon e Number MUSE SYSTEM CARDIAC CATHETERIZATION (11/29/2019 11:15 AM EDT) Anatomical Region Laterality Modality Other Specimen (Source) Anatomical Location Collection Method / Collectio n Time Received Time / Laterality Volume Narrative 11/30/2019 1:09 PM EDT ?[facility] ? Cardiac Cathete rization/Intervention Report ? Patient Name: Salinas, Angel Luis H. ? Procedure Date: 11/29/2019 ? A #: [id number] ? Primary Physician: Shaan, Gretchen N ? Case #: [id number] ? File Name: [id number] ? Catheterization Order Number: [id number] ? [facility] ? Final Report [place], [place] ? Patient Name: ? Angel Luis Salinas ? ID#: ?[id number] ? : ?1945 ? Procedure Date: ? [...] procedure was Emergent. The indication for ?the geotechnical laboratory technician visit is ACS less than [...] dose administered prior to arrival in the geotechnical laboratory technician. ?Recommended anti-platelet/anti- thrombotic regimen: ?Continue aspirin 81 mg daily fo r indefinitely. ?Continue clopidogrel 75 mg marco a y for 12 months then stop. ?These recommendations are made at the time of the intervention. Patient ?and provider preferences or a c hanging clinical situation may require ?modification of this regimen. C marvult [facility] Interventional Cardiology for ?questions. ? Conclusions: ?* [...] note might be different from the original. [facility] Cardiac Catheterization/Intervention Re port Patient Name: SalinasAngel Luis Procedure Date: 11/29/2019 A #: [id number] Primary Physician: Gretchen Yoon Case #: [id number] File Name: [id number] Catheterization Order Number: [id number] [facility] Final Report [place], [place] Patient Name: Angel Luis Salinas ID#: [id number] : 1945 Procedure Date: November 29, [...] was designated as ASA Class IV. The [facility] clinical frailty scale is 4: Vulnerable. Diagnostic Tests: Electrocardiography: EKG was assessed by ECG. EKG was Abnorm al. EKG showed ST Deviation >= 0.5 mm. Medications Prior to Procedure: Aspirin. Indications for Diagnostic Cath: The priority of the diagnostic procedur e was Emergent. The indication for the geotechnical laboratory technician visit is ACS less than [...] priority for the procedure was Emergent. [facility] indication for the procedure was S GAETANO [...] this intervention was 10%. The final TI MN flow was 2. Distal 90% Thrombectomy and [...] this intervention was 10%. The final TI MN flow was 2. Vascular Access: Vascular Access [...] administered prior t o arrival in the geotechnical laboratory technician. Recommended anti-platelet/anti-thrombot ic regimen: Continue aspirin 81 mg daily for indefi nitely. Continue clopidogrel 75 mg daily for 12 months then stop. These recommendations are made at the t loyda of the intervention. Patient and provider preferences or a changing clinical situation may require modification of this regimen. Consult D [facility] Interventional Cardiology for questions. Conclusions: * Two [...] Signature POC pH 7.33 (L) 7.35 - [facility] 7.45 [facility] LABORATORY POC PCO2 33 (L) 35 - 45 [facility] mmHg [facility] LABORATORY POC PO2 56 (L) 85 - 104 [facility] LABORATORY POC Base Excess -8.0 (L) -3.0 - 3.0 [facility] K mmol/L [facility] LABORATORY POC HCO3 17.4 (L) 20.0 - [facility] 26.0 [facility] mmol/[facility] LABORATORY POC Sodium 137 135 - 145 [facility] mmol/L [facility] LABORATORY POC Potassium 3.6 3.5 - 5.0 [facility] mmol/L [facility] POC Ionized Ca 1.15 1.15 - [facility] 1.33 [facility] POC Hematocrit 37.0 (L) 40.0 - [facility] 51.0 % [facility] LABORATORY POC Calc Hgb 12.6 (L) 13.7 - [facility] 17.5 gm/dL [facility] LABORATORY Comment: The calculation of hemoglobin f rom hematocrit assumes a normal MCHC. POC Bgas Loc CC LAB [facility] LABORATORY Specimen Anatomical Collection Method Collection Time Receive d Time (Source) Location / / Volume Laterality Blood specimen 11/29/2019 9:17 AM 020 7:35 (specimen) EDT AM EDT Gretchen Yoon MD CHEMISTRY ORDERABLES Performing Organization Address City/State/ZIP [place] [address] EKG 12 Lead (11/29/2019 9:01 AM EDT) Component Value Ref Range Test Analysis Performed Pathologis t Method Time At Signature Ventricular rate 80 BPM MUSE SYSTEM Atrial Rate 79 BPM MUSE SYSTEM QRS Duration 94 ms MUSE SYSTEM Q-T Interval 436 ms MUSE SYSTEM QTC Calculated 502 ms MUSE SYSTEM (Bezet) Calculated R Van 54 degrees MUSE SYSTEM Calculated T Van 80 degrees MUSE SYSTEM INTERPRETATION Normal sinus rhythm MUSE SYSTEM Inferior infarct , possibly acute Prolonged QT * ACUTE MN ?? Consider right ventricular involvement in acute [...] ONCE, 1 dose, 12/06/19 at 0515, Ad sound technician supervisor over 120 Minutes magnesium sulfate 2 [...] Bentley RN) 0-8,000 Units, Intravenous, BOLUS PER [facility] PROTOCOL, Starting 12/06/19 at 0926, [...] RN) 0230 (See Alternative - Provider: Shana eVntura RN)1354 (See Alternative - Provider: Amaya Anderson [...] Oral, EVERY 4 HOURS PRN, Startin g [place] 11/30/19 at 2016, Until Sun12/08/19 at 1811, hypokalemia
Administer for serum potassium (mMol/L) of 3.9 - 4 See instructions for Potassium Protocol in online policies.
Routine Or potassium chloride ER (K-Dur/Klor-Con) tablet 40 mEqJump to med 40 mEq, Oral, EVERY 4 HOURS PRN, Startin g [place] 11/30/19 at 2016, Until Sun12/08/19 at 181, hypokalemia
Administer for serum potassium (mMol/L) of 3.6 - 3.8 See instructions for Potassium Protocol in online policies.
Routine documented in this encounter Care Teams Guest Relations Receptionist Relationship Specialty Start Date End Date France Lam MD PCP - General 05/02/13 02/04/20 [address] [place] [address] documented as of this encounter
--- OUTSIDE RECORDS SUMMARY | 2022-03-23 11:06 | XMS_ITS | Encounter Summary ---
:1945 Author Organization [facility] [place] [address] Care Team Providers Name Role Phone France Lam MD Primary Care Provider Encounter Details Date Type Department Care Team Description 05/13/2013 Ancillary Vascular Surgery at [facility] (Primary Appointment [facility] Cesilia Sebastian, [place] Dx) [place] [id number] Social History Tobacco Use Types Packs/Day Years [...] Component Value Ref Test Analysis Performed At [facility] gist Range Method Time Signature VB Text VASCUBASE Report Department: Vascular Surgery Lab Patient: [id number] (ANGEL LUIS HI) CPT Code: 81018 ICD-9: 440.21 Referring Physician: FRANCE LAM Indication: [...] Posterior Tibial (Ankle) Art derrell ??84 ?0.64 ??[place]- Biphasic ?? Interpretation: RIGHT: ??Mild lower extremity [...] limb documented in this encounter Care Teams Assistant Therapy Aide Relationship Specialty Start Date End Date France Lam MD PCP - General 05/02/13 02/04/20 [address] [place] [address] documented as of this encounter
--- OUTSIDE RECORDS SUMMARY | 2022-03-23 11:06 | XMS_ITS | Encounter Summary ---
:1945 Author Organization [place] [address] Care Team Providers Name Role Phone France Lam MD Primary Care Provider Encounter Details Date Type Department Care Team Description 11/29/2019 External Results [place] [address] Social History Tobacco Use Types Packs/Day [...] on filedocumented in this encounter Care Teams On Awake Counselor Relationship Specialty Start Date End Date France Lam MD PCP - General 05/02/13 02/04/20 [address] [place] [address] documented as of this encounter
--- OUTSIDE RECORDS SUMMARY | 2022-03-23 11:06 | XMS_ITS | Encounter Summary ---
:1945 Author Organization [facility] [address] Care Team Providers Name Role Phone France Lam MD Primary Care Provider Encounter Details Date Type Department Care Team Description 05/13/2013 Orders Only Vascular Surgery at [facility] (xi luis [facility] electronic repair troubleshooter disease) [facility] (Primary Dx) [place] [address] Social History Tobacco Use Types Packs/Day [...] unspecified documented in this encounter Care Teams Diesel Truck Mechanic Relationship Specialty Start Date End Date France Lam MD PCP - General 05/02/13 02/04/20 [address] [place] [address] documented as of this encounter
--- OUTSIDE RECORDS SUMMARY | 2022-03-23 11:06 | XMS_ITS | Encounter Summary ---
:1945 Author Organization [facility] Address [facility] [place] [address] Care Team Providers Name Role Phone France Lam MD Primary Care Provider Reason for Visit Reason Comments Claudication Encounter Details Date Type Department Care Team Description 05/13/2013 Office Visit Vascular Surgery at David Sim from [facility] MD Bobby peripheral vascular [facility] dis ease, left (Primary Drive [address] [place]) [place], [place] VASCULAR SURGERY [id number] [place] [address] [phone] Social History Tobacco Use Types Packs/Day Years [...] unspecified documented in this encounter Care Teams Doctor Of Podiatry Relationship Specialty Start Date End Date France Lam MD PCP - General 05/02/13 02/04/20 [address] [place] [address] documented as of this encounter
[2022-03-28 11:01] VITALS: BP 95/59; PULSE 49
--- OUTSIDE RECORDS SUMMARY | 2022-03-28 11:09 | XMS_ITS | Encounter Summary ---
:1945 Author Organization [facility] [place] [address] Care Team Providers Name Role Phone France Lam MD Primary Care Provider Reason for Visit Reason Onset Date Comments TeleHealth 01/12/2020 Encounter Details Date Type Department Care Team Description 01/12/2020 Telephone Neurosurgery at [facility] Alfreda [place], TeleHealth [facility] [place] [phone] [facility] [phone] [place], [place] 0375 (Wo rk) Social History Tobacco [...] on filedocumented in this encounter Care Teams It Compliance Analyst Relationship Specialty Start Date End Date France Lam MD PCP - General 05/02/13 02/04/20 [address] [place] [address] documented as of this encounter
--- OUTSIDE RECORDS SUMMARY | 2022-03-28 11:09 | XMS_ITS | Encounter Summary ---
:1945 Author Organization [facility] Address [address] [place] [address] Care Team Providers Name Role Phone Jennifer Gomez INSURANCE VERIFICATION REPRESENTATIVE Primary Care Provider Encounter Details Date Type Department Care Team Description 08/26/[address] [facility] Najma Valladares for other Pathology & M, DO general examination Laboratory Medicine - [address] [facility] [address] [place] [phone] Social History Tobacco Use Types Packs/Day Years [...] 8:45 EST) Note to Patient The following [facility] pathology results have CENTER been interpreted by your LABORATORY pathologist and may be SERVICES available to you before your health provider has had the opportunity to review them. Please allow time for your provider to receive these results and explore management options, if applicable. Final Diagnosis A. RECTUM, POLYP, BIOPSY : [facility] - Polypoid submucosal anal glands. CENTER - Overlying rectal mucosa negative for dysplasia. LABORATORY - See comment. SERVICES Diagnosis Comment This rectal polyp shows a cantor bmucosal collection of anal duct glands causing a polypoid configuration. The morphology and the immunohistochemical profile are consistent with a benign (non-neoplastic) pro [facility] cess. Automotive Customer Experience Advisor slides of this case were reviewed at the gastrointestinal/liver intradepartmental consultation conference. CENTER LABORATORY ANTIBODY(CLONE)(BLOCK):RESULT SERVICES CK7 (RN7, [employer]) (A1): Strongly positive PAX-8 (MRQ-50, [place]) (A1): Negative NKX3.1 (Rabbit Polyclonal, [employer]) (A1): Negative GATA3 (L50-823, [place]) (A1): Negative NOTE: One or more of [...] characteristics have been de termined by [facility] and/or by the referring laboratory. The positive [...] laboratory testing. Attestation By the signature below, [facility] Elec tronically the attending physician CENTER sign ed by Odalis, certifies that they have LABORATORY Tami MD edna on 1) personally conducted SERVICES 2021 at 1309 a gross and/or microscopic examination of the described specimen(s), and/or personally interpreted the results of laboratory testing of the described specimen(s), and 2) personally rendered or confirmed the above diagnosis. Clinical History Flex sigmoidoscopy; [facility] diverticulosis, polyp CENTER LABORATORY SERVICES Gross Description A. [facility] Received in formalin mark d with proper patient identification (initials M, J) and rectal polyp is a marr-brown polyp, 0.6 x 0.5 x 0.4 cm. Bisected and entirely submitted in A1. CENTER LABORATORY ESTEFANY NICHOLS(ASCP) 08/26/2021 16:41 SE RVICES Performing Lab [facility] LAB [facility] LABORATORY SERVICES Scanned Images [facility] LABORAT[facility] SERVICES Specimen Tissue - Specimen from rectum (specimen) Performing Organization Address City/State/ZIP Code Phon e Number [facility] LABORATORY [address] [place] [address] SERVICES documented in this encounter Visit Diagnoses Diagnosis Encounter for other general examination documented in this encounter Care Teams Casting Tester Relationship Specialty Start Date End Date Jennifer Gomez NP PCP - General 05/10/15 [facility] [address] [place] [id number] documented as of this encounter
--- OUTSIDE RECORDS SUMMARY | 2022-03-28 11:09 | XMS_ITS | Continuity of Care Document ---
:1945 Author Organization [facility] Care Team Providers Name Role Phone [facility] Unavailable Unavailable Problems Combined list of problems [...] Diagnosis: ICD-10-CM Active Diagnosis [place] Z79.01 snf [place] [facility] (current) use of anticoagulantswith Provider Comments: Long-term current use of anticoagulant (SCT [id number]) Diagnosis: ICD-10-CM Active Diagnosis ST. Z23 Encounter for [place] immunizationwith CBO C Provider Comments: Encounter for Immunization Diagnosis: ICD-10-CM Active Diagnosis ST. H90.3 Sensorineural [facility] hearing loss, CBOC bilateralwith Provider Comments: Asymmetrical sensorineural hearing loss (SNOMED CT [id number]) Diagnosis: ICD-10-CM Active Diagnosis ST. I25.10 Athscl heart [facility] disease of [place] CB OC coronary artery w/o ang pctrswith Provider Comments: Atherosclerotic Heart Disease of [place] Coronary Artery without Angina Pectoris Medications Combined list of outpatient medications from Department of Defense and Veterans Affairs facilities. Medications provided include 1) outpatient medications from the last 15 months, and 2) patient-reported medications. Medication Details Route Status Patient Prescription Prescription Last Ordering Order Source Instructions Expires Number Dispense Provider Date Date AMIODARONE TAKE ONE ORAL ACTIVE 02/14/2023 [id number] JORGE A LOZA 02/15/ HCL TABLET 2 N 2021 [place] (PACERONE) BY MOUTH [place] 200MG TAB EVERY [facility] DAY AFTER ONE MONTH OF TWICE DAILY DOSING THROUGH 02/26/22 APIXABAN TAKE ONE ORAL ACTIVE 2023 [id number] WILLIE LOZA 01/20/ Departm 5MG TAB TABLET 2 N 2021 ent of BY MOUTH TWICE A s DAY TO Affairs HELP PREVENT BLOOD CLOTS (ANTICOA GULATION CCNRX) APIXABAN TAKE ONE ORAL 12/21/2021 [id number] GIANGR ECO 12/30/ WHITE 5MG TAB TABLET 2 ,MILTON Will 2020 [place]IVER BY MOUTH [place] EVERY [facility] TWELVE HOURS TO HELP PREVENT BLOOD CLOTS (ANTICOA GULATION ) ASPIRIN TAKE ONE ORAL ACTIVE GIANGRECO 12/20/ WHI TE 81MG TAB,EC TABLET ,MILTON Will 2020 ANNALEE ER BY MOUTH [place] EVERY [facility] DAY CHOLECALCIF TAKE ONE ORAL ACTIVE IRASEMA,P 04/22/ ST. DARIO 25MCG TABLET KARYY A 2014 [place] (1,000UNIT) BY MOUTH RY CB OC TAB EVERY OTHER DAY FUROSEMIDE TAKE ONE ORAL ACTIVE 12/17/2022 [id number] JORGE A LOZA 12/21/ Departm 20MG TAB TABLET 2 N 2021 ent of BY MOUTH EVERY s OTHER Affairs DAY TO REMOVE FLUID/CO NTROL BLOOD PRESSURE FUROSEMIDE TAKE ONE ORAL 11/12/2021 [id number] SJ PATTONM 11/12/ ST. 20MG TAB TABLET 2 ICHAEL 2020 [place] BY MOUTH RY CBOC EVERY OTHER DAY TO REMOVE FLUID/CO NTROL BLOOD PRESSURE LISINOPRIL TAKE ONE ORAL ACTIVE 12/17/2022 [id number] JORGE A LOZA 12/21/ Departm 5MG TAB TABLET 2 N 2021 ent of BY MOUTH [place] EVERY s DAY TO Affairs CONTROL BLOOD PRESSURE LISINOPRIL TAKE ONE ORAL DISCONT 06/08/2022 [id number] JORGE A LOZA 06/15/ WHITE 5MG TAB TABLET INUED 2 N 2020 [place] BY MOUTH [place] EVERY [facility] DAY TO CONTROL BLOOD PRESSURE LISINOPRIL TAKE ONE ORAL 06/03/2021 [id number] SJ PATTON,M 06/08/ ST. 5MG TAB TABLET 1 ICHAEL 2019 [place] BY MOUTH RY CBOC EVERY DAY TO CONTROL BLOOD PRESSURE METOPROLOL TAKE ONE ORAL ACTIVE 02/14/2023 [id number] JORGE A LOZA 02/15/ WHITE SUCCINATE TABLET 2 N 2021 [place]IVER 25MG TAB,SA BY MOUTH [place] EVERY [facility] DAY FOR BLOOD PRESSURE /HEART METOPROLOL TAKE ONE ORAL DISCONT 02/23/2022 [id number] SJ PATTONM 02/28/ ST. SUCCINATE TABLET INUED 2 ICHAEL 2020 [place] 25MG TAB,SA BY MOUTH RY CB OC EVERY DAY FOR BLOOD PRESSURE /HEART NITROGLYCER TAKE ONE SUBLIN 02/23/2022 [id number] Mery LR 02/28/ ST. 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 2020 ed [...] result by 1.210 Tests performed on [employer] (405) SN:[id number] [place] eGFR E] IN SERUM Ordering Pr ovider: [place] [facility] PANEL OR PLASMA Report Releas ed Date/Time: Feb 24, 2021 11:18 AM Reporting Lab: [facility] [place] [facility] [facility] [address] [place] [facility] [place] [address] Performing Lab: [facility] [place] [facility] [address] [facility] [address] CREATININ GLOMERULAR 44 60 04/28 L Specimen Ty pe: PLASMA WHITE E WITH FILTRATION /2020 Comment: For eGFR: Race unknown, if multiply result by 1.210 Tests performed on [employer] (405) SN:[id number] [place] eGFR RATE/1.73 Ordering Prov ider: [place] [facility] PANEL SQ Report Released Date/Time: Feb 24, 2021 11:18 AM M.PREDICTED Reporting L ab: [facility] [place] [facility] [VOLUME [address] [place] [facility] [place] [address] RATE/AREA] Performing L ab: [facility] [facility] IN SERUM OR [address] [facility] [address] PLASMA BY CREATININE- BASED FORMULA (MDRD) CBC NO LEUKOCYTES 5.8 4.5 - 11.0 04/28 Specimen T ype: BLOOD WHITE DIFF [#/VOLUME] /2020 No comment en tered. [place] IN BLOOD BY Ordering Pr ovider: [facility] [facility] AUTOMATED Report Releas ed Date/Time: Feb 24, 2021 11:18 AM COUNT Reporting Lab: [facility] [address] [place] [facility] [place] [address] Performing Lab: [facility] [place] [address] [facility] [address] CBC NO ERYTHROCYTE 4.61 4.23 - 04/28 Specimen Typ e: BLOOD WHITE DIFF S 5.66 /2020 No comment enter ed. [place] [#/VOLUME] Ordering Pro vider: [place] [facility] IN BLOOD BY Report Rele ased Date/Time: Feb 24, 2021 11:18 AM AUTOMATED Reporting Lab : [facility] [facility] COUNT [address] [place] [facility] [place] [place] [address] Performing Lab: [facility] [address] [place] [facility] [place] [place] [address] CBC NO HEMOGLOBIN 13.9 12.8 - 17 04/28 Specimen Ty pe: BLOOD WHITE DIFF [MASS/VOLUM /2020 No comment e ntered. [place] E] IN BLOOD Ordering Pr ovider: MILTON UREÑAOC Report Released Date/Time: Feb 24, 2021 11:18 AM Reporting Lab: [facility] [address] [place] [facility] [place] [facility] [place] [address] Performing Lab: [facility] [address] [place] [facility] [place] [address] CBC NO HEMATOCRIT 43.6 39.2 - 04/28 Specimen Type : BLOOD WHITE DIFF [VOLUME 50.4 No comment enter ed. [place] FRACTION] Ordering Prov ider: [place] [facility] OF BLOOD BY Report Rele ased Date/Time: Feb 24, 2021 11:18 AM AUTOMATED Reporting Lab : [facility] [place] COUNT [address] [place] [facility] [place] [place] [address] Performing Lab: [facility] [address] [place] [facility] [place] [place] [address] CBC NO MCV 94.6 82 - 99 04/28 Specimen Type: B LOOD WHITE DIFF [ENTITIC /2020 No comment ente red. [place] VOLUME] BY Ordering Pro vider: IMLTON UREÑAOC AUTOMATED Report Releas ed Date/Time: Feb 24, 2021 11:18 AM COUNT Reporting Lab: [facility] [address] [place] [facility] [place] [facility] [place] [address] Performing Lab: [facility] [address] [place] [facility] [place] [facility] [place] [address] CBC NO MCH 30.2 26.2 - 04/28 Specimen Type: B LOOD WHITE DIFF [ENTITIC 32.6 /2020 No comment ente red. [place] MASS] BY Ordering Provi adrian: MIL[place] UREÑAOC AUTOMATED Report Releas ed Date/Time: Feb 24, 2021 11:18 AM COUNT Reporting Lab: [facility] [address] [place] [facility] [place] [address] Performing Lab: [facility] [address] [place] [facility] [place] [address] CBC NO MCHC 31.9 30.8 - 04/28 Specimen Type: B LOOD WHITE DIFF [MASS/VOLUM 35.1 /2020 No comment e ntered. [place] E] BY Ordering Provid er: MILTON UREÑA AUTOMATED Report Releas ed Date/Time: Feb 24, 2021 11:18 AM COUNT Reporting Lab: [facility] [address] [place] [facility] [place] [address] Performing Lab: [facility] [address] [place] [facility] [place] [address] CBC NO PLATELETS 141 140 - 360 04/28 Specimen Typ e: BLOOD WHITE DIFF [#/VOLUME] /2020 No comment en tered. [place] IN BLOOD BY Ordering Pr ovider: [place] UREÑ[facility] AUTOMATED Report Releas ed Date/Time: Feb 24, 2021 11:18 AM COUNT Reporting Lab: [facility] [address] [place] [facility] [place] [address] Performing Lab: [facility] [address] [place] [facility] [place] [address] CBC NO PLATELET 12.1 9.2 - 12.4 04/28 Specimen Typ e: BLOOD WHITE DIFF MEAN VOLUME /2020 No comment e ntered. [place] [ENTITIC Ordering Provi adrian: MILTON UREÑAOC VOLUME] IN Report Relea sed Date/Time: Feb 24, 2021 11:18 AM BLOOD BY Reporting Lab: [facility] [place] AUTOMATED [address] [place] [facility] [place] [address] COUNT Performing Lab: [facility] [address] [place] [facility] [place] [address] CBC NO ERYTHROCYTE 15.0 12.0 - 04/28 Specimen Typ e: BLOOD WHITE DIFF DISTRIBUTIO 16.0 No comment e ntered. [place] N WIDTH Ordering Provid er: MILTON UREÑAOC [RATIO] BY Report Relea sed Date/Time: Feb 24, 2021 11:18 AM AUTOMATED Reporting Lab : [facility] COUNT [address] [place] [facility] [place] [address] Performing Lab: [facility] [address] [place] [facility] [place] [address] CREATININ CREATININE 1.37 0.5 - 1.5 02/22 Specimen Type: PLASMA WHITE E WITH [MASS/VOLUM /2020 Comment: Fo r eGFR: Race unknown, if multiply result by 1.210 Tests performed on [employer] (405) SN:[id number] [place] eGFR E] IN SERUM Ordering Pr ovider: MILTON UREÑ[facility] PANEL OR PLASMA Report Releas ed Date/Time: Dec 20, 2020 02:24 PM Reporting Lab: [facility] [address] [place] [facility] [place] [address] Performing Lab: [facility] [address] [place] [facility] [place] [address] CREATININ GLOMERULAR 51 60 02/22 L Specimen Ty pe: PLASMA WHITE E WITH FILTRATION /2020 Comment: For eGFR: Race unknown, if multiply result by 1.210 Tests performed on [employer] (405) SN:[id number] [place] eGFR RATE/1.73 Ordering Prov ider: MILTON UREÑ[facility] PANEL SQ Report Released Date/Time: Dec 20, 2020 02:24 PM M.PREDICTED Reporting L ab: [facility] [VOLUME [address] [place] [facility] [place] [address] RATE/AREA] Performing L ab: [facility] [place] [facility] IN SERUM OR [address] [place] [facility] [place] [address] PLASMA BY CREATININE- BASED FORMULA (MDRD) CBC NO LEUKOCYTES 6.8 4.5 - 11.0 02/22 Specimen T ype: BLOOD WHITE DIFF [#/VOLUME] /2020 No comment en tered. [place] IN BLOOD BY Ordering Pr ovider: MILTON UREÑ[facility] AUTOMATED Report Releas ed Date/Time: Dec 20, 2020 02:24 PM COUNT Reporting Lab: [facility] [address] [place] [facility] [place] [address] Performing Lab: [facility] [address] [place] [facility] [place] [address] CBC NO ERYTHROCYTE 5.03 4.23 - 08 Specimen Typ e: BLOOD WHITE DIFF S 5.66 /2020 No comment enter ed. [place] [#/VOLUME] Ordering Pro vider: MILTON UREÑ[facility] IN BLOOD BY Report Rele ased Date/Time: Dec 20, 2020 02:24 PM AUTOMATED Reporting Lab : [facility] [place] COUNT [address] [facility] [address] Performing Lab: [facility] [place] [address] [facility] [address] CBC NO HEMOGLOBIN 14.9 12.8 - 17 02/22 Specimen Ty pe: BLOOD WHITE DIFF [MASS/VOLUM /2020 No comment e ntered. [place] E] IN BLOOD Ordering Pr ovider: MILTON UREÑA Report Released Date/Time: Dec 20, 2020 02:24 PM Reporting Lab: [facility] [address] [place] [facility] [place] [address] Performing Lab: [facility] [place] [address] [place] [facility] [place] [address] CBC NO HEMATOCRIT 46.7 39.2 - 02/22 Specimen Type : BLOOD WHITE DIFF [VOLUME 50.4 No comment enter ed. [place] FRACTION] Ordering Prov ider: MILTON UREÑAOC OF BLOOD BY Report Rele ased Date/Time: Dec 20, 2020 02:24 PM AUTOMATED Reporting Lab : [facility] [place] COUNT [address] [place] [facility] [place] [address] Performing Lab: [facility] [address] [place] [facility] [place] [address] CBC NO MCV 92.8 82 - 99 02/22 Specimen Type: B LOOD WHITE DIFF [ENTITIC /2020 No comment ente red. [place] VOLUME] BY Ordering Pro vider: MILTON UREÑAOC AUTOMATED Report Rele ed Date/Time: Dec 20, 2020 02:24 PM COUNT Reporting Lab: [facility] [address] [facility] [address] Performing Lab: [facility] [facility] [address] [facility] [address] CBC NO MCH 29.6 26.2 - 08 Specimen Type: B LOOD WHITE DIFF [ENTITIC 32.6 /2020 No comment ente red. [place] MASS] BY Ordering Provi adrian: MILTON UREÑA AUTOMATED Report Releas ed Date/Time: Dec 20, 2020 02:24 PM COUNT Reporting Lab: [facility] [address] [facility] [address] Performing Lab: [facility] [address] [facility] [address] CBC NO MCHC 31.9 30.8 - 08 Specimen Type: B LOOD WHITE DIFF [MASS/VOLUM 35.1 /2020 No comment e ntered. [place] E] BY Ordering Provid er: MILTON UREÑA AUTOMATED Report Releas ed Date/Time: Dec 20, 2020 02:24 PM COUNT Reporting Lab: [facility] [address] [facility] [address] Performing Lab: [facility] [address] [facility] [address] CBC NO PLATELETS 159 140 - 360 08 Specimen Typ e: BLOOD WHITE DIFF [#/VOLUME] /2020 No comment en tered. [place] IN BLOOD BY Ordering Pr ovider: MILTON UREÑA AUTOMATED Report Releas ed Date/Time: Dec 20, 2020 02:24 PM COUNT Reporting Lab: [facility] [address] [facility] [address] Performing Lab: [facility] [address] [facility] [address] CBC NO PLATELET 13.0 9.2 - 12.4 08/24 H Specimen Typ e: BLOOD WHITE DIFF MEAN VOLUME /2020 No comment e ntered. [place] [ENTITIC Ordering Provi adrian: MILTON UREÑA VOLUME] IN Report Relea sed Date/Time: Dec 20, 2020 02:24 PM BLOOD BY Reporting Lab: [facility] [address] [facility] [address] COUNT Performing Lab: [facility] [address] [facility] [address] CBC NO ERYTHROCYTE 14.6 12.0 - 08/24 Specimen Typ e: BLOOD WHITE DIFF DISTRIBUTIO 16.0 /2020 No comment e ntered. [place] N WIDTH Ordering Provid er: [facility] [RATIO] BY Report Relea sed Date/Time: Dec 20, 2020 02:24 PM AUTOMATED Reporting Lab : [facility] COUNT [address] [facility] [address] Performing Lab: [facility] [address] [facility] [address] P4 UREA 20 7 - 25 08/24 Specimen Type: P LASMA ST. GLU,BUN,C NITROGEN /2020 Comment: For eGFR: Race unknown, if multiply result by 1.210 Tests performed on [employer] (405) SN:[id number] IVORY BECKETT [MASS/VOLUM Ordering Provider: GRETCHEN PEREZ CA E] IN SERUM Report Rele ased Date/Time: Feb 22, 2021 10:13 AM OR PLASMA Reporting Lab : [facility] [address] [facility] [address] Performing Lab: [facility] [address] [facility] [address] P4 SODIUM 133 135 - 145 08/24 L Specimen Type: PLASMA ST. GLU,BUN,C [MOLES/VOLU /2020 Comment: For eGFR: Race unknown, if multiply result by 1.210 Tests performed on [employer] (405) SN:[id number] IVORY BECKETT ME] IN Ordering Prov ider: GRETCHEN PEREZ CA SERUM OR Report Release d Date/Time: Feb 22, 2021 10:13 AM PLASMA Reporting Lab: [facility] [address] [facility] [address] Performing Lab: [facility] [address] [facility] [address] P4 POTASSIUM 4.5 3.5 - 5.0 02/22 Specimen Typ e: PLASMA ST. GLU,BUN,C [MOLES/VOLU /2020 Comment: For eGFR: Race unknown, if multiply result by 1.210 Tests performed on [employer] (405) SN:[id number] IVORY BECKETT [place]] IN Ordering Prov ider: GRETCHEN PEREZ [place] SERUM OR Report Release d Date/Time: Feb 22, 2021 10:13 AM PLASMA Reporting Lab: [facility] [address] [place] [facility] [place] [facility] [place] [address] Performing Lab: [facility] [address] [place] [facility] [place] [place] [address] P4 CHLORIDE 102 100 - 110 02/22 Specimen Type : PLASMA ST. GLU,BUN,C [MOLES/VOLU /2020 Comment: For eGFR: Race unknown, if multiply result by 1.210 Tests performed on [employer] (405) SN:[id number] IVORY BECKETT [place]] IN Ordering Prov ider: GRETCHEN PEREZ CA SERUM OR Report Release d Date/Time: Feb 22, 2021 10:13 AM PLASMA Reporting Lab: [facility] [address] [place] [facility] [place] [facility] [place] [address] Performing Lab: [facility] [facility] [address] [place] [facility] [place] [address] P4 CARBON 21 20 - 30 02/22 Specimen Type: P LASMA ST. GLU,BUN,C DIOXIDE, /2020 Comment: For eGFR: Race unknown, if multiply result by 1.210 Tests performed on [employer] (405) SN:[id number] IVORY BECKETT [facility] Ordering Prov ider: GRETCHEN PEREZ S,CA [MOLES/VOLU Report Rele ased Date/Time: Feb 22, 2021 10:13 AM [place]] IN Reporting Lab: [facility] [facility] [facility] SERUM OR [address] [place] [facility] [place] [address] PLASMA Performing Lab: [facility] [address] [place] [facility] [place] [address] P4 ANION GAP 10 4 - 16 02/22 Specimen Type: PLASMA ST. GLU,BUN,C IN SERUM OR /2020 Comment: For eGFR: Race unknown, if multiply result by 1.210 Tests performed on [employer] (405) SN:[id number] BLAIR BECKETTTE PLASMA Ordering Prov ider: GRETCHEN PEREZ CA Report Released Date/Time: Feb 22, 2021 10:13 AM Reporting Lab: [facility] [address] [facility] [address] Performing Lab: [facility] [address] [facility] [address] P4 GLUCOSE 106 65 - 100 08/24 H Specimen Type: PLASMA ST. GLU,BUN,C [MASS/VOLUM /2020 Comment: For eGFR: Race unknown, if multiply result by 1.210 Tests performed on [employer] (405) SN:[id number] MARCELA NYELYTE E] IN SERUM Ordering Provider: GRETCHEN PEREZ CA OR PLASMA Report Releas ed Date/Time: Feb 22, 2021 10:13 AM Reporting Lab: [facility] [address] [facility] [address] Performing Lab: [facility] [address] [facility] [address] P4 CREATININE 1.37 0.5 - 1.5 02/22 Specimen Ty pe: PLASMA ST. GLU,BUN,C [MASS/VOLUM /2020 Comment: For eGFR: Race unknown, if multiply result by 1.210 Tests performed on [employer] (405) SN:[id number] BLAIR BECKETTTE E] IN SERUM Ordering Provider: GRETCHEN PEREZ CA OR PLASMA Report Releas ed Date/Time: Feb 22, 2021 10:13 AM Reporting Lab: [facility] [address] [facility] [address] Performing Lab: [facility] [address] [facility] [address] P4 CALCIUM 9.6 8.5 - 10.5 02/22 Specimen Type : PLASMA ST. GLU,BUN,C [MASS/VOLUM /2020 Comment: For eGFR: Race unknown, if multiply result by 1.210 Tests performed on [employer] (405) SN:[id number] MARCELA NYELYTE E] IN SERUM Ordering Provider: ANA,GRETCHEN CBOC S,CA OR PLASMA Report Releas ed Date/Time: Feb 22, 2021 10:13 AM Reporting Lab: [facility] [address] [facility] [address] Performing Lab: [facility] [place] [facility] [address] [facility] [address] P4 GLOMERULAR 51 60 02/22 L Specimen Type : PLASMA ST. GLU,BUN,C FILTRATION /2020 Comment: F or eGFR: Race unknown, if multiply result by 1.210 Tests performed on [employer] (405) SN:[id number] MARCELA REIVORY MILLER RATE/1.73 Ordering Pr ovider: GRETCHEN PEREZ S,CA SQ Report Released Date/Time: Feb 22, 2021 10:13 AM M.PREDICTED Reporting L ab: [facility] [VOLUME [address] [facility] [address] RATE/AREA] Performing L ab: [facility] IN SERUM OR [address] [facility] [address] PLASMA BY CREATININE- BASED FORMULA (MDRD) LIVER PROTEIN 8.0 6.0 - 8.5 02/22 Specimen Type: PLASMA ST. PROFILE [MASS/VOLUM /2020 Comment: Fo r eGFR: Race unknown, if multiply result by 1.210 Tests performed on [employer] (405) SN:[id number] [facility] E] IN SERUM Ordering Pr ovider: GRETCHEN PEREZ CBOC OR PLASMA Report Releas ed Date/Time: Feb 22, 2021 10:13 AM Reporting Lab: [facility] [address] [place] [facility] [place] [address] Performing Lab: [facility] [address] [facility] [address] LIVER ALBUMIN 4.0 3.2 - 5.0 02/22 Specimen Type: PLASMA ST. PROFILE [MASS/VOLUM /2020 Comment: Fo r eGFR: Race unknown, if multiply result by 1.210 Tests performed on [employer] (405) SN:[id number] [facility] E] IN SERUM Ordering Pr ovider: GRETCHEN PEREZ CBOC OR PLASMA Report Releas ed Date/Time: Feb 22, 2021 10:13 AM Reporting Lab: [facility] [address] [facility] [address] Per[facility]: [facility] [address] [place] [facility] [place] [address] LIVER BILIRUBIN.T 0.6 0.2 - 1.2 02/22 Specimen T ype: PLASMA ST. PROFILE OTAL /2020 Comment: For eG FR: Race unknown, if multiply result by 1.210 Tests performed on [employer] (405) SN:[id number] [facility] [MASS/VOLUM Ordering Pr ovider: GRETCHEN PEREZ E] IN SERUM Report Rele ased Date/Time: Feb 22, 2021 10:13 AM OR PLASMA Reporting Lab : [facility] [address] [facility] [address] Performing Lab: [facility]3]OC [address] [facility] [address] LIVER ALKALINE 75 40 - 150 02/22 Specimen Type: PLASMA ST. PROFILE PHOSPHATASE Comment: Fo r eGFR: Race unknown, if multiply result by 1.210 Tests performed on [employer] (405) SN:[id number] [facility] [ENZYMATIC Ordering Pro vider: GRETCHEN PEREZ ACTIVITY/VO Report Rele ased Date/Time: Feb 22, 2021 10:13 AM LUME] IN Reporting Lab: [facility] OR [address] [place] [facility] [place] [address] PLASMA Performing Lab: [facility] [address] [place] [facility] [place] [address] LIVER ALANINE 16 7 - 52 02/22 Specimen Type: P LASMA ST. PROFILE AMINOTRANSF Comment: Fo r eGFR: Race unknown, if multiply result by 1.210 Tests performed on [employer] (405) SN:[id number] [facility] ERASE Ordering Provid er: GRETCHEN PEREZ [ENZYMATIC Report Relea sed Date/Time: Feb 22, 2021 10:13 AM ACTIVITY/VO Reporting L ab: [facility] LUME] IN [address] [place] [facility] [place] [address] SERUM OR Performing Lab : [facility]3]OC PLASMA [address] [place] [facility] [place] [address] LIVER ASPARTATE 17 5 - 34 02/22 Specimen Type: PLASMA ST. PROFILE AMINOTRANSF Comment: Fo r eGFR: Race unknown, if multiply result by 1.210 Tests performed on [employer] (405) SN:[id number] [facility] ERASE Ordering Provid er: GRETCHEN PEREZ [ENZYMATIC Report Relea sed Date/Time: Feb 22, 2021 10:13 AM ACTIVITY/VO Reporting L [facility] IN [address] [facility] [address] SERUM OR Performing Lab : [facility] PLASMA [address] [place] [facility] [place] [address] LIPOPROTE CHOLESTEROL 361 0 - 199 08/24 H Specimen T ype: PLASMA ST. IN [MASS/VOLUM /2020 Comment: Fo r eGFR: Race unknown, if multiply result by 1.210 Tests performed on [employer] (405) SN:[id number] [facility] CHOLESTER E] IN SERUM Ordering Provider: GRETCHEN PEREZ OL FRACT. OR PLASMA Report Rele ased Date/Time: Feb 22, 2021 10:13 AM PANEL Reporting [facility]: [facility] [address] [facility] [address] Performing Lab: [facility] [address] [place] [facility] [place] [address] LIPOPROTE TRIGLYCERID 170 0 - 149 08/24 H Specimen T ype: PLASMA ST. IN E Comment: For eG FR: Race unknown, if multiply result by 1.210 Tests performed on [employer] (405) SN:[id number] [facility] CHOLESTER [MASS/VOLUM Ordering Provider: GRETCHEN PEREZ OL FRACT. E] IN SERUM Report Re leased Date/Time: Feb 22, 2021 10:13 AM PANEL OR PLASMA Reporting Lab : [facility] [address] [facility] [address] Performing Lab: [facility] [address] [facility] [address] LIPOPROTE CHOLESTEROL 46 40 08/24 Specimen T ype: PLASMA ST. IN IN HDL /2020 Comment: For eG FR: Race unknown, if multiply result by 1.210 Tests performed on [employer] (405) SN:[id number] [facility] CHOLESTER [MASS/VOLUM Ordering Provider: GRETCHEN PEREZ OL FRACT. E] IN SERUM Report Re leased Date/Time: Feb 22, 2021 10:13 AM PANEL OR PLASMA Reporting Lab : [facility] [address] [facility] [address] Performing Lab: [facility] [address] [facility] [address] LIPOPROTE CHOLESTEROL 281 0 - 129 08/24 H Specimen T ype: PLASMA ST. IN IN LDL /2020 Comment: For eG FR: Race unknown, if multiply result by 1.210 Tests performed on [employer] (405) SN:[id number] MARCELA CHOLESTER [MASS/VOLUM Ordering Provider: GRETCHEN PEREZ OL FRACT. E] IN SERUM Report Re leased Date/Time: Feb 22, 2021 10:13 AM PANEL OR PLASMA Reporting Lab : [facility] [facility] [address] [facility] [address] CALCULATION Performing Lab: [facility] [address] [facility] [address] VITAMIN COBALAMIN 312 200 - 900 08/24 Specimen Typ e: SERUM ST. B-12 (VITAMIN /2020 Comment: Tests performed on [employer] (405) SN:[id number] MARCELA B12) Ordering Provid er: GRETCHEN PEREZ [MASS/VOLUM Report Rele ased Date/Time: Feb 22, 2021 10:13 AM E] IN SERUM Reporting L ab: [facility] OR PLASMA [address] [facility] [address] Performing Lab: [facility] [address] [facility] [address] GLYCOHEMO HEMOGLOBIN 6.2 4.0 - 5.6 08/24 H Specimen Type: BLOOD ST. GLOBIN A1C/HEMOGLO /2020 Comment: Te sts performed on [employer] (405) SN:[id number] MARCELA (A1C BIN.TOTAL Ordering Prov ider: GRETCHEN PEREZ ONLY) IN BLOOD BY Report Rele ased Date/Time: Feb 22, 2021 10:13 AM HPLC Reporting Lab: [facility] [address] [facility] [address] Performing Lab: [facility] [address] [facility] [address] VIT D CALCIFEROL 40.8 20 - 50 08/24 Specimen Type : SERUM ST. 25-OH(WRJ (VIT D2) /2020 Comment: Kirsten ts performed on [employer] (405) SN:[id number] MARCELA ) [MASS/VOLUM Ordering Pr ovider: GRETCHEN PEREZ E] IN SERUM Report Rele ased Date/Time: Feb 22, 2021 10:13 AM OR PLASMA Reporting Lab : [facility] [address] [facility] [address] Performing Lab: [facility] [address] [facility] [address] Encounters Combined list of: 1) Encounters from Department of Veterans Affairs facilities going back up to the last 18 months. 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 Location Location Encounter Encounter Reason Attending ADM DC Stat us Disposition Source Details Type Number For Provider Date Date Visit Outpatient 68367-8.40 09/30 [facility] Encounter [id number] /2020 [facility] 20639-3.40 10/19 [facility] Encounter [id number] /2020 [facility] 75256-4.40 11/11 [facility] Encounter [id number] /2020 [facility] [place] 98148-7.40 11/11 WH[facility] E Encounter [id number] /2020 [facility] Out[facility] 66912-3.40 11/11 WH[facility] Encounter [id number] /2020 [facility] Outpatient 05160-2.40 12/13 WHIT E Encounter [id number] /2020 [facility]3]OC HC PRO 74876-8.40 Diagnos ADELITA, 12/20 W JIMBO PHONE CALL [id number] is: MILTON B /2020 R IVER 11-20 MIN ICD-10- [place]CT [facility] 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
Provide r Comment s: Long-te rm current use of anticoa gulant (SCT 4367530 03) Outpatient [id number] 02/22 WHIT E Encounter [id number] [facility]3]OC OFFICE O/P 04264-5.40 Diagnos SÁNCHEZ PEREZ 02/22 ST. EST MOD [id number] is: CHAEL JOHNSBU 30-39 MIN 29 ICD-10- RY CBOC CM I25.10 Athscl heart disease of [place] coronar y artery w/o ang pctrs<b r/>with Provide r Comment s: Atheros cleroti c Heart Disease of [place] Coronar y Artery without Angina Pectori s Outpatient 02/24 WHIT E Encounter [id number] /2021 [facility] MT[facility] BY Diagnos GUERDABINGJose Elias, 02/24 WH[facility] PHARM EST [id number] is: MILTON RI DORI 15 MIN ICD-10- [place] [facility] Z79.01 snf (curren t) use of anticoa gulants
Provide r Comment s: Long-te rm current use of anticoa gulant (SCT 9131419 03) Outpatient 03/02 WH[facility] E Encounter [id number] /2021 [facility] COMPREHENS 96843-8.40 Diagnos RADHA, 04/12 ST. ELA [id number] is: HLEY A [facility] HEARING 39 ICD-10- RY CBOC TEST CM H90.3 Sensori neural hearing loss, bilater al
with Provide r Comment s: Asymmet rical sensori neural hearing loss (SNOMED CT 6213361 09) Outpatient 04/15 WHIT E Encounter [id number] /2021 [facility] OFFICE O/P 95078-5.40 Diagnos PETTIGLIO, 04/28 ST. EST [id number] is: SAMMY A JOHNSB U MINIMAL 02 ICD-10- RY CBOC PROB CM Z23 Encount er for immuniz ation<b r/>with Provide r Comment s: Encount er for Immuniz ation HC PRO 01272-6.40 Diagnos NICOLA LEONE 04/29 W JIMBO PHONE CALL [id number] is: AN RIVE R 11-20 MIN ICD-10- [facility] [facility] Z79.01 snf (curren t) use of anticoa gulants
wi th Provide r Comment s: Long-te rm current use of anticoa gulant ([facility] [id number] 03) Outpatient [id number] 07/04 WHIT E Encounter [id number] /2022 [facility] Social History Combined list of available smoking, tobacco, and other social history [facility]. 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 An actual copy of the Directive is not included. Date Advance Directive Provider Source 01/15/2019 ADVANCE DIRECTIVE DISCUSSION STEPHANIE HERNANDEZ [facility]
--- OUTSIDE RECORDS SUMMARY | 2022-03-28 11:09 | XMS_ITS | Encounter Summary ---
:1945 Author Organization [facility] Address [address] [place] [address] Care Team Providers Name Role Phone France Lam MD Primary Care Provider Reason for Visit Reason Onset Date Comments TeleHealth 01/08/2020 Appt 01/09/20 Encounter Details Date Type Department Care Team Description 01/08/2020 Telephone Neurology at [facility] Efrain Nicole PA TeleHealth (Appt [facility] 12/[address] ) [place] [address] NEUROLOGY [phone] [place], [place] [address] (Wo rk) Social History Tobacco [...] on filedocumented in this encounter Care Teams Vp Director Of Finance Relationship Specialty Start Date End Date France Lam MD PCP - General 05/02/13 02/04/20 [address] [place] [address] documented as of this encounter
--- OUTSIDE RECORDS SUMMARY | 2022-03-28 11:09 | XMS_ITS | Encounter Summary ---
:1945 Author Organization [facility] Address [address] [place] [address] Care Team Providers Name Role Phone Unavailable Primary Care Provider Unavailable Encounter Details Date Type Department Care Team Description 09/02/2003 Results Only [facility] - Otis Patel MD conversion [address] [facility] [address] [place] [address] [place] [address] (Wo rk) Social History Tobacco Use Types [...] ANGEL LUIS SALINAS ? Accession #: ? [id number] ? : ? 1945 (Age: 58) ??M [...] of the lesion is recommended. ?? (Dr. Mascorro)/[employer] Microscopic Description: ? The epidermis is hype [...] and cords of similar melanocytes that show optical assistant maturation with descent. ??There is papillary dermal fibroplasia. ??(Dr. Mascorro)/[employer] Document reviewed and electronically signed by: Mai [...] entirely submitted in one cassette. ??(Dr Stephany Amador)/[facility] End of Report Specimen Performing Organization Address City/State/ZIP Code Phon e Number [facility] [address] [place] [address] SERVICES [facility] [address] [place] [address] documented in this encounter Visit Diagnoses Not on filedocumented in this encounter
--- OUTSIDE RECORDS SUMMARY | 2022-03-28 11:09 | XMS_ITS | Encounter Summary ---
:1945 Author Organization [facility] Address [address] [place] [address] Care Team Providers Name Role Phone Jennifer Gomez CASE THERAPIST Primary Care Provider Encounter Details Date Type Department Care Team Description 12/22/2019 Lab Requisition [facility] Outr Resulting Lab, Pathology & Laboratory Provider [facility] [address], [place] [id number] Social History Tobacco Use Types Packs/Day Years Used Date Never Assessed Sex Assigned at Date Recorded Not on file documented as of this encounter Plan of Treatment Not on filedocumented as of this encounter Procedures Procedure Name Priority Date/Time Associated Diagnosis Comme nts COVID-19 TEST [facility] Today 12/22/2019 10:38 LAB PCR EDT COVID-19 TESTING Routine 12/22/2019 10:38 Results for this EDT procedure are i n the results section. documented in this encounter Results COVID-19 TEST [facility] LAB PCR (12/22/2019 10:38 EDT) Specimen Swab - Entire nasopharynx (body structur e) Performing Organization Address City/State/ZIP Code Phon e Number [facility] [address] [place] [address] SERVICES COVID-19 TESTING (12/22/2019 10:38 EDT) COVID-19 rt-PCR Negative Negative [facility] Result Comment: [facility] Negative results do not prec lude 2019-nCoV infection and should not be used as the sole basis for treatment or other patient management decisions. Negative results must be combined with clinical observa SERVICES tions, patient history, and epidemiological informatio n. This test was developed and its performance characteristics determined by [facility]. It has not been cleared or [...] by the FDA Performed on the [employer] [address]. Performing Lab [address] [facility] Lab [facility] SERVICES Specimen Swab Performing Organization Address City/State/ZIP Code Phon e Number [facility] [address] [place] [address] SERVICES documented in this encounter Visit Diagnoses Not on filedocumented in this encounter Care Teams Journal Box Inspector Relationship Specialty Start Date End Date Jennifer Gomez NP PCP - General 05/10/15 [facility] [address] [place], [place] [id number] documented as of this encounter
--- OUTSIDE RECORDS SUMMARY | 2022-03-28 11:09 | XMS_ITS | Clinical Summary ---
:1945 Author Organization [facility] [place] [address] Care Team Providers Name Role Phone Jovany Lott MD Primary Care Provider Allergies Active Allergy Reactions Severity Noted Date Comments Penicillins 05/13/2013 Pt doesn't gely mber reaction Zxzpohp-Xdr-Jhr Reductase 05/13/2013 St iff neck, upset stomach, [...] Address City/State/ZIP Code Phon e Number [place], [place] from Last 3 Months Insurance Payer Benefit Plan / Subscriber ID Effective Dates Phone Addre ss Type Group MEDICARE MEDICARE PART [id number] 2019-Prese [phone] [place] [id number] [place] [id number] 2018-Presen [employer] [place] [id number] Advance Directives Latest Code Status on File [...] capacity to make decision: Yes Care Teams Roll Sheeting Cutter Relationship Specialty Start Date End Date Jovany Lott MD PCP - General Family Medicine 02/05/20 [address] [place] [id number]
--- OUTSIDE RECORDS SUMMARY | 2022-03-28 11:09 | XMS_ITS | Encounter Summary ---
:1945 Author Organization [facility] [place] [address] Care Team Providers Name Role Phone Jovany Lott MD Primary Care Provider Encounter Details Date Type Department Care Team Description 10/12/2020 Notes Only Cardiology at [facility] Willow Callejas, [facility] [place] [address] Social History Tobacco Use Types Packs/Day [...] want totalk to my doctor at the [facility] and do a little more research before I decide what to do, I'm a little afraid of it. He notes that he has a scheduled clinic visit in November and will discuss with Dr. Garduno at that time. documented in this encounter Plan of Treatment Not on filedocumented as of this encounter Visit Diagnoses Not on filedocumented in this encounter Care Teams Able Bodied Tankerman Relationship Specialty Start Date End Date Jovany Lott MD PCP - General Family Medicine 02/05/20 [place] [phone] documented as of this encounter
--- OUTSIDE RECORDS SUMMARY | 2022-03-28 11:09 | XMS_ITS | Encounter Summary ---
:1945 Author Organization [facility] [place] [address] Care Team Providers Name Role Phone Jovany Lott MD Primary Care Provider Reason for Visit Consultation (Routine) - Closed Specialty Diagnoses / Procedures Referred By Contact Refer red To Contact Cardiology Diagnoses ST elevation (STEMI) myocardial infarction of unspecified site Hyperlipidemia, unspecified PeriDawit muhammad MD [place] [address] [place] [address] [address] [place] CARDI[facility] D EPT [address] [place] [address] Fax: Referral ID Status Reason Start Date Expiration Date Visits V isits Requested Authorized [id number] Closed Consult, Test 02/10/2020 02/09/2021 [facility] PCP Updated and/or Approved Encounter Details Date Type Department Care Team Description 03/12/2020 TH Visit Cardiology at [facility] Melina Payan Fredrickson type IIa hyperli poproteinemia; (TeleHealth) [facility] Hyperglycemia; [facility] Elevated TSH; [facility] Hypothyroidism, acquired [address] CARDIOLOGY DEPT [phone] [place], [place] [address] Social History Tobacco Use Types Packs/Day Years Used Date Former Smoker Cigars 0.5 Quit: 11/29/19 20 Smokeless Tobacco: Former User Comments: Quit chew tobacco years and y ears ago Sex Assigned at Date Recorded Not on file documented as of this encounter Progress Notes Melina Payan MD - 03/12/2020 1:00 PM EDT [facility] [...] Social History: 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 They have [...] Lunch: bologna bread and butter, turkey sandwich bailye, eggs and home fries coffee as above [...] medications for this visit. Allergies Penicillins and Qbroqdz-ays-jww reductase inhibitors Physical Exam not performed telehealth Assessment Jovany is a very high risk 75-year-old man who suffered a STEMI complicated by A. fib, cardiogenic shock, and a CVA. He has multiple cardiovascular risk factors including peripheral artery disease, hyperlipidemia (elevated LDL, depressed HDL), a 06-chzy-mbdi history of smoking, and prediabetes. Jovany quit [...] but Jovany replied: I can't drive to [facility] every 2 weeks for that. I explained [...] hypothyroidism documented in this encounter Care Teams Horseback Excavator Relationship Specialty Start Date End Date Jovany Lott MD PCP - General Family Medicine 02/05/20 [place] [address] documented as of this encounter
--- OUTSIDE RECORDS SUMMARY | 2022-03-28 11:09 | XMS_ITS | Encounter Summary ---
:1945 Author Organization [facility] [place] [address] Care Team Providers Name Role Phone Jovany Lott MD Primary Care Provider Reason for Visit Reason Onset Date Comments Follow-up 06/15/2020 Tobacco Treatment Encounter Details Date Type Department Care Team Description 06/15/2020 Telephone Vascular Surgery at [facility] (Tobacco [facility] Sukumar, RN Treatment) [place] [address] Social History Tobacco Use Types Packs/Day [...] updated. Ryan Tran, MSN, RN-BC, NCTTP Tobacco Head Cook [facility] Pager #[phone] documented in this encounter Plan of Treatment Not on filedocumented as of this encounter Visit Diagnoses Not on filedocumented in this encounter Care Teams Highway Maintenance Technician Relationship Specialty Start Date End Date Jovany Lott MD PCP - General Family Medicine 02/05/20 [place] [address] documented as of this encounter
--- OUTSIDE RECORDS SUMMARY | 2022-03-28 11:09 | XMS_ITS | Encounter Summary ---
:1945 Author Organization [facility] [place] [address] Care Team Providers Name Role Phone Jovany Lott MD Primary Care Provider Encounter Details Date Type Department Care Team Description 11/10/2020 Telephone Cardiology at [facility] [place] [address] Social History Tobacco Use Types Packs/Day [...] on filedocumented in this encounter Care Teams Deskidding Machine Operator Relationship Specialty Start Date End Date Jovany Lott MD PCP - General Family Medicine 02/05/20 [place] [phone] documented as of this encounter
--- OUTSIDE RECORDS SUMMARY | 2022-03-28 11:09 | XMS_ITS | Encounter Summary ---
:1945 Author Organization [facility] [place] [address] Care Team Providers Name Role Phone Jovany Lott MD Primary Care Provider Encounter Details Date Type Department Care Team Description 10/05/2020 Notes Only Cardiology Merlin Sanchez MD [facility] [place] [address] CARDIOLOGY DEPT. [phone] [place], [place] [address] (Wo rk) Social History Tobacco [...] BEKAH-C with [facility] Merlin Sanchez MD [facility] Pager 2020 documented in this encounter Plan of Treatment Not on filedocumented as of this encounter Visit Diagnoses Not on filedocumented in this encounter Care Teams Principal Ios Developer Relationship Specialty Start Date End Date Jovany Lott MD PCP - General Family Medicine 8/6/20 [address] [place] [address] documented as of this encounter
--- OUTSIDE RECORDS SUMMARY | 2022-03-28 11:09 | XMS_ITS | Encounter Summary ---
:1945 Author Organization [facility] Address [facility] [place] [address] Care Team Providers Name Role Phone France Lam MD Primary Care Provider Encounter Details Date Type Department Care Team Description 12/26/2019 TH Visit Cardiology at [facility] Merlin Sanchez V, Claudication from peripheral vascular disease, left ; (TeleHealth) [facility] Hyperlipidemia, unspecified hyperlipidem ia type; Drive [facility] Acute ST elevation myocardia l infarction (STEMI) of inferior wall; [place], [place] CENTER Acute systolic CHF (congestive heart reid lure), NYHA class 3, MILVIA/AHA stage C [address] CARDIOLOGY DEPT. [phone] [place] [address] Social History Tobacco Use Types Packs/Day Years [...] best is to differ this conversation until snf OAC strategy has been set. Specifically, if this is being treated as a provoked dvt/pe, then would re-evaluate to coordinated with OAC discontinuation. I discussed the above findings with the patient and his both of whom appear to understand and is in agreement with the plan going forward. Merlin Sanchez M.D., F.A.C.C. appliance servicer Pager 2020 >50% of the 15 minute [...] failure documented in this encounter Care Teams Motor Coach Chauffeur Relationship Specialty Start Date End Date France Lam MD PCP - General 05/02/13 02/04/20 [address] [place] [address] documented as of this encounter
--- OUTSIDE RECORDS SUMMARY | 2022-03-28 11:09 | XMS_ITS | Encounter Summary ---
:1945 Author Organization [facility] [place] [address] Care Team Providers Name Role Phone France Lam MD Primary Care Provider Encounter Details Date Type Department Care Team Description 01/09/2020 TH Visit Neurology at [facility] Efrain Nicole, Intracranial hemorrhage; (TeleHealth) [facility] ESTEFANY Tobacco abuse; Drive [facility] Cerebrovascular accident (CV A) due to embolism of right posterior cerebral artery [facility] [address] NEUROLOGY [phone] [place] [address] Social History Tobacco Use Types Packs/Day Years Used Date Current Every Day Smoker Cigars 0.5 Sex Assigned at Date Recorded Not on file documented as of this encounter Progress Notes Efrain Nicole PA - 01/09/2020 9:00 AM EDT [facility] Department [place] [address] t: [phone] / f: [phone] TELEPHONE ENCOUNTER Date of Appointment: 01/09/2020 I [...] cardiology - had f/u head CT at [facility] which was stable with resolving known hemorrhage - has not resumed smoking -has been in touch with Dr. Sanchez for Watchman, deferred for duration of anticoagulation for PE Modified [place] Scale (MRS) 0: No symptoms at all [...] -advised vision/eye exam with his local provider ([facility]); consider referral to neuro-ophthalmology here in future [...] artery documented in this encounter Care Teams Drafter Chief Design Relationship Specialty Start Date End Date France Lam MD PCP - General 05/02/13 02/04/20 [address] [place] [address] documented as of this encounter
--- OUTSIDE RECORDS SUMMARY | 2022-03-28 11:09 | XMS_ITS | Encounter Summary ---
:1945 Author Organization [facility] Address [facility] [place] [address] Care Team Providers Name Role Phone France Lam MD Primary Care Provider Encounter Details Date Type Department Care Team Description 12/30/2019 TH Visit Cardiology at [facility] Faustino Garduno Claudication from peripheral vascular disease, left ; (TeleHealth) [facility] MD Jaquan Hyperlipidemia, unspecified hyperlipidem ia type; Drive [facility] Acute ST elevation myocardia l infarction (STEMI) of inferior wall; [place], [place] Center Acute systolic CHF (congestive heart reid lure), NYHA class 3, MILVIA/AHA stage C; [address] [place], [place] Intracranial hemorrhage; [phone] Atrial fibrillation, unspecified type Social History Tobacco [...] with ICH, bilateral PE; paroxysmal atrial fibrillation [[id number]: 5]; PAD; HLD; HTN; smoking and PFO,who [...] a non-culprit artery. S/P DESx3 in the [id number] RCA. Aspiration thrombectomy performed, and integrellin bolus [...] with ICH, bilateral PE; paroxysmal atrial fibrillation [[id number]: 5]; PAD; HLD; HTN; smoking and PFO, who presents for post-discharge cardiovascular follow-up. CV issues are currently stable. Plan 1. CAD - CCS Class 0. Recovering well. He has completed 1 month of triple therapy. He may stop his aspirin, and resume clopidogrel and apixaban. Starting cardiac rehab. He wishes to pursue PCSK9 referral via the [place] system. 2. Afib - CHADS2-vasc 5, presently [...] 6 months Faustino Garduno MD Time spent: [id number] 0-5min [id number] 6-10min 7265GPT1 11-15min 3725RGT4 16-20min XXXX [id number] 21-30min 7379PLT8 31-40min 5384GGG2 40+ min documented in this encounter Plan [...] type documented in this encounter Care Teams Employee Health Rn Relationship Specialty Start Date End Date France Lam MD PCP - General 05/02/13 02/04/20 [address] [place] [address] documented as of this encounter
--- OUTSIDE RECORDS SUMMARY | 2022-03-28 11:09 | XMS_ITS | Encounter Summary ---
:1945 Author Organization [facility] Address [address] [place] [address] Care Team Providers Name Role Phone Jennifer Gomez FIBERGLASS BOAT PARTS FINISHER Primary Care Provider Encounter Details Date Type Department Care Team Description 09/07/2020 Lab Requisition [facility] Outr Resulting Lab, Pathology & Laboratory Provider [facility] [address] [place], [place] [address] Social History Tobacco Use Types Packs/Day Years Used Date Never Assessed Sex Assigned at Date Recorded Not on file documented as of this encounter Plan of Treatment Not on filedocumented as of this encounter Procedures Procedure Name Priority Date/Time Associated Diagnosis Comme nts COVID-19 TEST [facility] Today 09/07/2020 9:45 EST LAB PCR COVID-19 TESTING Routine 09/07/2020 9:45 EST Resu lts for this procedure are i n the results section. documented in this encounter Results COVID-19 TEST [facility] LAB PCR (09/07/2020 9:45 EST) Specimen Swab - Entire nasopharynx (body structur e) Performing Organization Address City/State/ZIP Code Phon e Number [facility] [address] [place] [address] SERVICES COVID-19 TESTING (09/07/2020 9:45 EST) COVID-19 rt-PCR Negative Negative [facility] Result Comment: CENTER LABORATORY This [...] developed and its performance characteristics determined by [facility]. It has not been cleared [...] defined by the FDA Performed on the Dejamoro 7 Pro RT-PCR System. Performing Lab [facility] Lab [facility] SERVICES Specimen Swab Performing Organization Address City/State/ZIP Code Phon e Number [facility] [address] [place] [address] SERVICES documented in this encounter Visit Diagnoses Not on filedocumented in this encounter Care Teams Customer Pricing Manager Relationship Specialty Start Date End Date Jennifer Gomez NP PCP - General 05/10/15 [facility] [address] [place], [place] [address] documented as of this encounter
--- OUTSIDE RECORDS SUMMARY | 2022-03-28 11:09 | XMS_ITS | Clinical Summary ---
:1945 Author Organization [facility] Address [address] [place] [address] Care Team Providers Name Role Phone Jennifer Gomez Bunny CHICKEN CLEANER Primary Care Provider Encounters Date Type Specialty [...] (H) 2.8 - 5.3 pg/mL [facility] SERVICES Specimen Blood - Venous blood (substance) Performing Organization Address City/State/ZIP Code Phon e Number [facility] [address] [place] [address] SERVICES FECAL BACTERIAL PATHOGENS BY PCR (01/24/2022 14:50 EDT) Pathologist Sig nature Salmonella PCR Negative Negative [facility] SERVICES Shigella/Enteroinvasive Negative Negative [facility] HN LAB CAMPYLOBACTER PCR Negative Negative [facility] SERVICES Shiga Toxin PCR Negative Negative [facility] SERVICES Specimen Feces - Specimen from rectum (specimen) Performing Organization Address City/State/ZIP Code Phon e Number [facility] [address] [place] [address] SERVICES from Last 3 Months Insurance Payer Benefit Plan Subscriber ID Effective Phone Address Typ e / Group Dates MUTUAL OF M[employer] OF [id number] 2018-Prese [id number] [place] [address] MEDICARE MEDICARE A/B [id number] 2011-Pres [address] Medicare GL ent [id number] [place] [address] (Work) Jovany Hi Personal/Family Self [address] (Home) [place] [address] (Work) Jovany Hi Personal/Family Self [address] (Home) [place] [address] (Work) Care Teams Lunch Cook Relationship Specialty Start Date End Date Jennifer Gomez, CHICKEN CLEANER PCP - General 05/10/15 [facility] [address] [place], [place] [id number]
--- OUTSIDE RECORDS SUMMARY | 2022-03-28 11:09 | XMS_ITS | Encounter Summary ---
:1945 Author Organization [facility] Address [address] [place] [address] Care Team Providers Name Role Phone Jennifer Gomez CLINICAL LEADER Primary Care Provider Encounter Details Date Type Department Care Team Description 02/15/2022 Lab Requisition [facility] Outr Resulting Lab, Pathology & Laboratory Provider [facility] [address] [place], [place] [address] Social History Tobacco Use Types Packs/Day Years [...] Free 9.3 (H) 2.8 - 5.3 pg/mL [facility] SERVICES Specimen Blood - Venous blood (substance) Performing Organization Address City/State/ZIP Code Phon e Number [facility] [address] [place] [address] SERVICES documented in this encounter Visit Diagnoses Not on filedocumented in this encounter Care Teams Residential Nurse Relationship Specialty Start Date End Date Jennifer Gomez, CLINICAL LEADER PCP - General 05/10/15 [facility] [address] [place], [place] [id number] documented as of this encounter
--- OUTSIDE RECORDS SUMMARY | 2022-03-28 11:09 | XMS_ITS | Encounter Summary ---
:1945 Author Organization [facility] Address [facility] [place] [address] Care Team Providers Name Role Phone Jovany Lott MD Primary Care Provider Encounter Details Date Type Department Care Team Description 08/31/2020 TH Visit Cardiology at [facility] Fasutino Garduno Atrial fibrillation, unspeci fied type (Primary Dx); (TeleHealth) [facility] MD Jaquan Acute ST elevation myocardial infarction (STEMI) of inferior wall; [facility] Acute systolic CHF (congesti ve heart failure), NYHA class 3, MILVIA/AHA stage C; [place], [place] Center Hyperlipidemia, unspecified hyperlipidem ia type; [address] [place], [place] Intracranial hemorrhage; [phone] PFO (patent foramen ovale); [phone] Claudication fr om peripheral vascular disease, left (Work) Social History Tobacco Use Types Packs/Day Years Used Date Former Smoker Cigars 0.5 Quit: 11/29/19 20 Smokeless Tobacco: Former User Sex Assigned at Date Recorded Not on file documented as of this encounter Progress Notes Faustino Garduon MD - 08/31/2020 3:20 PM EST STRUCTURAL/INTERVENTIONAL [...] with ICH, bilateral PE; paroxysmal atrial fibrillation [[id number]: 5]; PAD; HLD; HTN; smoking and PFO,who [...] appointment with Dr. Faustino Chou at [facility]. However, he has not grossly noted that [...] a non-culprit artery. S/P DESx3 in the [id number] RCA. Aspiration thrombectomy performed, and integrellin bolus [...] with ICH, bilateral PE; paroxysmal atrial fibrillation [[id number]: 5]; PAD; HLD; HTN; smoking and PFO, [...] Will also discuss further with his local mortgage loan processing clerk, Dr. Mejia. 3. Bilateral PE - Case discussed with Dr. Sanchez above; likely provoked in lieu of his prolonged hospitalization. He has completed at least 6 months of oral A/C (coinciding treatment for his afib). 4. PAD - Continue optimal medical therapy for now. Will place referral for SET/walking program. F/U 3 months Faustino Garduno MD Time spent: 35 minutes Addendum 09/13/20: Called [phone] or [phone] and was able to speak to Dr. Faustino Chou. Pt also sees Dr. Lott in [facility] for local primary care needs. Dr. Chou [...] unspecified documented in this encounter Care Teams Project Manager Process Development Relationship Specialty Start Date End Date Jovany Lott MD PCP - General Family Medicine 02/05/20 Coni Ph[place] [facility] [place] [id number] documented as of this encounter
--- OUTSIDE RECORDS SUMMARY | 2022-03-28 11:09 | XMS_ITS | Encounter Summary ---
:1945 Author Organization [facility] Address [address] [place] [address] Care Team Providers Name Role Phone Jennifer Gomez PMO LEAD Primary Care Provider Encounter Details Date Type Department Care Team Description 03/19/2019 Hospital Encounter [facility] Unknown, Provider, [facility] [phone] [place] [address] (Work) [phone] Social History Tobacco Use Types Packs/Day Years Used Date Never Assessed Sex Assigned at Date Recorded Not on file documented as of this encounter Discharge Disposition Disposition Code Departure Means Destination Home or Self Correction documented in this encounter Plan of Treatment Not on filedocumented as of this encounter Visit Diagnoses Not on filedocumented in this encounter Care Teams Exercise Science Instructor Relationship Specialty Start Date End Date Jennifer Gomez, PMO LEAD PCP - General 05/10/15 [facility] [address] [place], [place] [address] documented as of this encounter
--- OUTSIDE RECORDS SUMMARY | 2022-03-28 11:09 | XMS_ITS | Encounter Summary ---
:1945 Author Organization [facility] Address [address] [place] [address] Care Team Providers Name Role Phone Jennifer Gomez CHEMICAL PLANT WORKER Primary Care Provider Encounter Details Date Type Department Care Team Description 03/19/2019 Results Only [facility] Angel Luis Lott MD [phone] [address] [place], [place] [id number] (Wo rk) Social History Tobacco Use Types [...] (03/19/2019 16:47 EDT) Pathology SURGICAL PATHOLOGY REPORT [facility] MEDICAL Report: Reports generated via electronic interface conta in original data; CENTER LABORATORY however they are lacking the format of the original re port. SERVICES Caution should be taken when reading/interpreting unfo rmatted reports. Name: ? ANGEL LUIS HI ? Accession #: ? [id number] ? : ? 1945 (Age: 7 3) [...] Organization Address City/State/ZIP Code Phon e Number [facility]ENTER LABOR[facility]ORY [address] [place] [address] SERVICES documented in this encounter Visit Diagnoses Not on filedocumented in this encounter Care Teams Tile And Mottle Supervisor Relationship Specialty Start Date End Date Jennifer Gomez NP PCP - General 05/10/15 [facility] [address] [place], [place] [phone] documented as of this encounter
--- OUTSIDE RECORDS SUMMARY | 2022-03-28 11:09 | XMS_ITS | Encounter Summary ---
:1945 Author Organization [facility] Address [address] [place] [address] Care Team Providers Name Role Phone Jennifer Gomez GARBAGE PICK UP MAN Primary Care Provider Encounter Details Date Type Department Care Team Description 02/07/2020 Lab Requisition [facility] Outr Resulting Lab, Pathology & Laboratory Provider [facility] [address] [place] [address] Social History Tobacco Use Types [...] (02/07/2020 7:59 EDT) COVID-19 rt-PCR NEGATIVE Negative [facility] Result Comment: LABORATORY 2019-novel Coronavirus [...] Organization Address City/State/ZIP Code Phon e Number [facility] [place] [place] COVID-19 TESTING (02/07/2020 7:59 EDT) COVID-19 rt-PCR NEGATIVE Negative [facility] Result Comment: LABORATORY 2019-novel Coronavirus [...] Administration's Emergency Use Authorization. Performing Lab [facility] LABORATORY SERVICES Specimen Swab Performing Organization Address City/State/ZIP Code Phon e Number [facility] [address] [place] [address] SERVICES [facility] [place], [place] documented in this encounter Visit Diagnoses Not on filedocumented in this encounter Care Teams Organ Fixer Relationship Specialty Start Date End Date Jennifer Gomez NP PCP - General 05/10/15 [facility] [address] [place], [place] [address] documented as of this encounter
--- OUTSIDE RECORDS SUMMARY | 2022-03-28 11:10 | XMS_ITS | Encounter Summary ---
:1945 Author Organization [facility] [place] [address] Care Team Providers Name Role Phone France Lam MD Primary Care Provider Encounter Details Date Type Department Care Team Description 12/23/2019 TH Visit Neurosurgery at [facility] Alfreda Salas Intracranial (TeleHealth) [facility] C, [address] [place] [address] Center [phone] [place] [address] Social History Tobacco Use Types Packs/Day Years Used Date Current Every Day Smoker Cigars 0.5 Sex Assigned at Date Recorded Not on file documented as of this encounter Progress Notes Alfreda Salas C, BENZENE WASHER - 12/23/2019 1:30 PM EDT Images from [...] [address] at [facility], showing slight decrease in size and [...] 3-4 weeks which may be done at [facility] with follow up TOV [facility]. Head CT 12/18/19 Assessment and Plan [...] hemorrhage documented in this encounter Care Teams Director Investor Relations Relationship Specialty Start Date End Date France Lam MD PCP - General 05/02/13 02/04/20 [address] [place] [address] documented as of this encounter
--- OUTSIDE RECORDS SUMMARY | 2022-03-28 11:10 | XMS_ITS | Encounter Summary ---
:1945 Author Organization [facility] Address [facility] [place] [address] Care Team Providers Name Role Phone France Lam MD Primary Care Provider Encounter Details Date Type Department Care Team Description 12/22/2019 Telephone Cardiology Riki Stevens, [facility] [place] [address] [facility] [phone] GENERAL INTERNAL MEDICINE [place] [phone] (Wo rk) Social History Tobacco Use Types [...] on filedocumented in this encounter Care Teams Fence Post Cutter Relationship Specialty Start Date End Date France Lam MD PCP - General 05/02/13 02/04/20 [address] [place] [address] documented as of this encounter
--- OUTSIDE RECORDS SUMMARY | 2022-03-28 11:10 | XMS_ITS | Encounter Summary ---
:1945 Author Organization [facility] [place] [address] Care Team Providers Name Role Phone France Lam MD Primary Care Provider Encounter Details Date Type Department Care Team Description 12/08/2019 Telephone Neurosurgery at [facility] Sarah Boucher [facility] [address] Social History Tobacco Use Types Packs/Day Years Used Date Current Every Day Smoker Cigars 0.5 Sex Assigned at Date Recorded Not on file documented as of this encounter Miscellaneous Notes Telephone Encounter - Elza Bradshaw - 12/22/2019 6:[address] in e[facility] Telephone Encounter - Elza Bradshaw - 12/18/2019 3:43 PM EDT Left message at [facility] requesting they call back to advise if patient has been scheduled for CT. Telephone Encounter - Sarah Boucher - 12/08/2019 3:[address] order to [facility] to schedule, 12/16-12/18 for 12/22 TOV scheduled w/[facility] Telephone Encounter - Sarah Boucher - 12/08/2019 9:50 AM EDT RN, please put in CT order external=[place] Pt's called not able to come to [facility] on 12/[address] to have CT locally at [facility] call w/results. documented in this encounter Plan of Treatment Not on filedocumented as of this encounter Visit Diagnoses Not on filedocumented in this encounter Care Teams Advertising Sales Manager Relationship Specialty Start Date End Date France Lam MD PCP - General 05/02/13 02/04/20 [address] [place] [address] documented as of this encounter
--- OUTSIDE RECORDS SUMMARY | 2022-03-28 11:10 | XMS_ITS | Encounter Summary ---
:1945 Author Organization [facility] [place] [address] Care Team Providers Name Role Phone France Lam MD Primary Care Provider Reason for Visit Reason Onset Date Comments TeleHealth 12/22/2019 Appt 12/23/19 Encounter Details Date Type Department Care Team Description 12/22/2019 Telephone Neurosurgery at [facility] Alfreda Salas TeleHealth (Appt [facility] Devin Sebastian, ELECTRONIC MUSICAL INSTRUMENT REPAIRER 12/23/19) [place] [address] [place] [address] [place] [address] Social History Tobacco Use Types Packs/Day [...] on filedocumented in this encounter Care Teams Wrong Address Clerk Relationship Specialty Start Date End Date France Lam MD PCP - General 05/02/13 02/04/20 [address] [place] [address] documented as of this encounter
--- OUTSIDE RECORDS SUMMARY | 2022-03-28 11:10 | XMS_ITS | Encounter Summary ---
:1945 [place] [address] Care Team Providers Name Role Phone France Lam MD Primary Care Provider Encounter Details Date Type Department Care Team Description 12/08/2019 Orders Only Neurosurgery at [facility] Natalia Delong, Intracranial [facility] [place] [address] Social History Tobacco Use Types Packs/Day Years Used Date Current Every Day Smoker Cigars 0.5 Sex Assigned at Date Recorded Not on file documented as of this encounter Plan of Treatment Not on filedocumented as of this encounter Visit Diagnoses Diagnosis Intracranial hemorrhage Unspecified intracranial hemorrhage documented in this encounter Care Teams Insurance Administrator Relationship Specialty Start Date End Date France Lam MD PCP - General 05/02/13 02/04/20 [address] [place] [address] documented as of this encounter
--- OUTSIDE RECORDS SUMMARY | 2022-03-28 11:11 | XMS_ITS | Encounter Summary ---
:1945 Author Organization [facility] [place] [address] Care Team Providers Name Role Phone France Lam MD Primary Care Provider Reason for Referral Consultation (Routine) - Specialty Diagnoses / Procedures Referred By Contact Refer red To Contact Cardiology Diagnoses Acute ST elevation myocardial infarction (STEMI) of inferior wall Darrell Glasgow MD [facility] [place] [address] Referral ID Status Reason Start Date Expiration Date Visits V isits Requested Authorized [id number] Consult, 12/08/2019 06/05/2020 1 1 Test & Treat Consultation (Routine) - Closed Specialty Diagnoses / Referred By Contact Referred To Contact Procedures Cardiac Rehabilitation Diagnoses ST elevation myocardial infarction involving right coronary artery Gretchen Yoon, Cardiac Rehab, [address] [place] [phone] Fax: Referral ID Status Reason Start Date Expiration Date Visits V isits Requested Authorized [id number] Closed Consult, 12/08/2019 06/05/2020 36 36 Test & Treat Reason for Visit Auth/Cert Specialty Diagnoses / Procedures Referred By Contact Refer red To Contact Diagnoses STEMI (ST elevation myocardial infarction) STEMI Procedures CARDIAC CATHETERIZATION Referral ID Status Reason Start Date Expiration Date Visits Requ ested Visits Authorized [id number] 1 1 Encounter Details Date Type Department Care Team Description 11/29/2019 - Hospital Encounter Cardiac Special YoungBarbra MD [facility] [place] [address] ST elevation myocardial infarction invol ving left main coronary artery; 12/08/2019 Care Unit Paris Lozano MD [facility] [place] [address] ST elevation myocardial infarction invol ving right coronary artery; [facility] Edema of upper extremity; Hospital Intracranial hemorrhage; [facility] Paroxysma l atrial fibrillation; Drive Acute pulmonary embolism, un specified pulmonary embolism type, unspecified whether acute cor pulmonale present; [place], [place] Acute ST elevat ion myocardial infarction (STEMI) of inferior wall [id number] Social History Tobacco Use Types Packs/Day Years [...] Luis Salinas Patient Age: 74 y.o. Language: Zambian Race: White Ethnicity: Not nor Admit date: [...] months on: antiplatelet therapy at discretion of pressing machine operator - Repeat TTE in 3 months to reassess LV function - Repeat BMP in 1-2 weeks given recent start lisinopril - Referred to lipid clinic for consideration of PCSK-9 inhibitor given STEMI with intolerance of statins - Started on amiodarone this admission for recurrent rapid atrial flutter with rates ~170, recommendcontinued assessment of necessity of rhythm control strategy with pressing machine operator - Amiodarone monitoring recommendations as below - [...] please contact your inpatient physician through the [facility] Planishing Hammer Operator . Issues after hours and on weekends [...] took two full strength aspirinand came to [facility] ED. At there was found [...] and Compazine. He was transferred directly to [facility] via [facility] for further management. Patient had an emergent PCI with 3 MACARIO stents placed to his RCA, with mild disease of LCX (report pending) at [facility]. He was found to be persistently hypotensive requiring Levo up to 10mcg/min. He was transferred to [facility] after the cath procedure. Bedside RHC showed CI 2.12, PAWP 11, PAP 38/15 indicating hypovolemic state. He received 1L bolus of NS with improvement of his blood pressure to 124/61. History of PAD, HLD - had side reactions to statins - so taking niacin and red rye grain. Chronic active smoker with more than 65 pack years. Family history of [place] in father and two uncles. He's takingbaby [...] drip as described above. On arrival at [facility] he was taken for [...] number below. Electronically signed by: Estefani Harris [facility] ([phone]), at 11/29/2019 4:[address] Head wo Contrast (Generic) (Exam End: 11/30/2019 10:41 AM) Impression Focal hemorrhage with small amount of adjacent edema projecting in the region of the left optic tract. Thank you for letting us participate in the care of this patient. For questions regarding this report, please contact the number below. Electronically signed by: [facility] ([phone]), at 11/30/2019 12:[address] Head wo [...] below. Electronically signed by: [facility] Luis [facility] ([phone]), at 11/30/2019 5:[address] Angiogram [place] (Exam End: 11/30/2019 4:36 PM) Impression Head CT: Stable hemorrhage in the region of the left optic tract. CTA: Negative exam. No abnormal vasculature in the area of hemorrhage. Thank you for letting us participate in the care of this patient. For questions regarding this report, please contact the number below. Electronically signed by: Angel Luis Barboza MD, [facility] ([phone]), at 11/30/2019 5:04 PM MRI Brain wo [...] Electronically signed by: Angel Luis Barboza MD, [facility] ([phone]), at 12/01/2019 8:02 PM XR Chest One [...] number below. Electronically signed by: Latoya Ivey [facility] ([phone]), at 11/30/2019 8:[address] Head wo [...] number below. Electronically signed by: Merari Collins [facility] ([phone]), at 12/01/2019 3:53 PM XR Chest One View (Exam End: 12/02/2019 1:00 PM) Impression Slightly increased small bibasilar pleural effusions and atelectasis. Thank you for letting us participate in the care of this patient. For questions regarding this report, please contact the number below. Electronically signed by: Ashly Marley [facility] ([phone]), at 12/02/2019 1:[address] Cardiac for [...] number below. Electronically signed by: Roselyn Luciano [facility] ([phone]), at 12/04/2019 6:16 PM MRI Brain wwo Contrast (Generic) (Exam End: 12/05/2019 7:59 PM) Impression No significant interval change. Thank you for letting us participate in the care of this patient. For questions regarding this report, please contact the number below. Electronically signed by: Merari Collins [facility] ([phone]), at 12/05/2019 10:[address] Head wo [...] number below. Electronically signed by: Merari Collins [facility] ([phone]), at 12/06/2019 10:06 PM Pending Studies and Lab Data: N/A Discharge Conditions/Prognosis: stable Discharge to: home Updated Allergies/ADRs: Allergies Allergen Reactions ??? Penicillins Pt doesn't remember reaction ??? Swezhoz-Ode-Aur Reductase Inhibitors Stiff neck, upset stomach, back [...] medications at another hospital and then at [facility] you had a stent [...] FOR ONE MONTH AND THEN STOP. Your pressing machine operator may tell you to start this medication again after one year. Clopidogrel (Plavix) 75 mg daily - This medication will help prevent clots from forming in your blood, which will help protect the stent that was placed in your heart vessel. TAKE THIS FOR ONE YEAR ANDTHEN DISCUSS WITH YOUR AUTO MECHANIC SUPERVISOR WHETHER TO STOP. Amiodarone 400mg twice daily [...] follow up: Your primary care provider and pressing machine operator will manage your blood thinner (apixaban). You do not need lab monitoring of this medication. Diet: Please consume a healthy diet low in cholesterol Follow up Appointments: 12/10/2019 at 3:10PM with PCP Angel Luis Lott Future Appointments Date Time Provider Department Center 12/23/2019 1:30 PM Alfreda Salas APRN [address] 12/26/2019 9:40 AM Merlin Sanchez MD [facility] CARD 4A [facility] 12/30/2019 3:40 PM Gretchen Yoon MD [facility] 4A [facility] Future Appointments and Orders Future Appointments and Orders Future Appointments Provider Department Dept Phone 12/23/2019 1:30 PM Alfreda Salas APRN Neurosurgery at [facility] Arrive at: Home [phone] Please do not come in for this visit. Your provider will call you at the number you provided. 12/26/2019 9:40 AM Merlin Sanchez MD Cardiology at [facility] Arrive at: Home [phone] Please do not come in for this visit. Your provider will call you at the number you provided. 12/30/2019 3:40 PM Gretchen Yoon MD Cardiology at [facility] Arrive at: Home [phone] Please do not come in for this visit. Your provider will call you at the number you provided. Future Orders Complete By Expires Referral to Cardiac Rehab [RPE635 Custom] As directed Process Instructions: If no progress note charted, please enter Clinical details in comments. Scheduling Instructions: Questions: My question or request is: STEMI. Cardiac rehab at [facility] Referral to [facility] [REF43 Custom] As directed Process Instructions: If no progress note charted, please enter Clinical details in comments. Scheduling Instructions: Questions: My question or request is: patient with inferior stemi with history of statin allergy (rash) - please evaluate for psck9 inhibitor. Referral to Home Health - at DISCHARGE [EUJ8774 CPT(R)] As directed Process Instructions: Scheduling Instructions: Comments: DOCUMENTATION FOR VNA SERVICES PATIENT'S LOCATION: [address] [phone] (home) Tube Station Attendant's Name: Self In discussion with the attending physician, it is certified that this patient is under his/her care and that MD, or an DRIER AND EVAPORATOR OPERATOR, CLASSIFIER TENDER, or PA who is working directly with him/her, had a bzob-vb-xaem encounter that meets the physician hdjk-jj-pchy encounter requirements with this patient on 12/07/2019. [...] for managing ADLs. HOME HEALTH CARE AGENCY: [facility], PHONE: [phone] FAX: [phone] Start of care: 24-48 hours after hospital [...] MD [address] / [place] [address] All A agencies which cover the area of patient's residence have been reviewed, either verbally or in writing, and patient/family have chosen the home health care agency noted. Questions: Agency name and contact information: [facility] Patient location post discharge: Home What services are requested: Registered Nurse Physical Therapy Occupational Therapy Start date: Responsible MD post discharge contact info: PCP Your PCP: France Lam MD [phone] For questions regarding this document or issues relating to this hospitalization on the Cardiology Service, please contact your inpatient physician through the [facility] Planishing Hammer Operator . Issues after hours and on weekends will be handled by the Student Services Director on-call. Patient Instructions: Neurology Your Diagnosis: Left [...] follow-up appointment in the neurology clinic at [facility]. See below for the appointment time. [...] 1:30 PM Alfreda Salas APRN Neurosurgery at [facility] Arrive at: Home [phone] Please do not come in for this visit. Your provider will call you at the number you provided. 12/26/2019 9:40 AM Merlin Sanchez MD Cardiology at [facility] Arrive at: Home [phone] Please do not come in for this visit. Your provider will call you at the number you provided. 12/30/2019 3:40 PM Gretchen Yoon MD Cardiology at [facility] Arrive at: Home [phone] Please do not come in for this visit. Your provider will call you at the number you provided. Future Orders Complete By Expires Referral to Cardiac Rehab [[id number] Custom] As directed Process Instructions: If no progress note charted, please enter Clinical details in comments. Scheduling Instructions: Questions: My question or request is: STEMI. Cardiac rehab at [facility] Referral to [facility] [REF43 Custom] As directed Process Instructions: If no progress note charted, please enter Clinical details in comments. Scheduling Instructions: Questions: My question or request is: patient with inferior stemi with history of statin allergy (rash) - please evaluate for psck9 inhibitor. Referral to Home Health - at DISCHARGE [UIP7552 CPT(R)] As directed Process Instructions: Scheduling Instructions: Comments: DOCUMENTATION FOR VNA SERVICES PATIENT'S LOCATION: [address] [phone] (home) Tube Station Attendant's Name: Self In discussion with the attending physician, it is certified that this patient is under his/her care and that MD, or an DRIER AND EVAPORATOR OPERATOR, CLASSIFIER TENDER, or PA who is working directly with him/her, had a fhlq-nj-sgyi encounter that meets the physician ngpv-jo-wlog encounter requirements with this patient on 12/07/2019. [...] for managing ADLs. HOME HEALTH CARE AGENCY: [facility], PHONE: [phone] FAX: [phone] Start of care: 24-48 hours after hospital [...] France Lam MD [address] / [facility] [address] All A agencies which cover the area of patient's residence have been reviewed, either verbally or in writing, and patient/family have chosen the home health care agency noted. Questions: Agency name and contact information: [facility] Patient location post discharge: Home What services are requested: Registered Nurse Physical Therapy Occupational Therapy Start date: Responsible MD post discharge contact info: PCP Discharge References/Attachments Atrial Fibrillation (Zambian) Cardiac Rehabilitation (Zambian) Heart Failure (Zambian) Heart Failure: Limiting Sodium (Zambian) Hemorrhagic Stroke: General Info (Zambian) Smoking: Stopping (Zambian) Stroke Rehabilitation: General Info (Zambian) Pulmonary Embolism (Zambian) Riki Stevens MD PGY-3, Internal Medicine Cardiology S2, #2012 Associated attestation - Paris Dodd MD - 12/09/2019 4:44 PM EDT Cardiology Attending Discharge Addendum I was the assigned attending pressing machine operator for this clinical encounter. For the purposes [...] complications include novel onset, paroxysmal atrial fibrillation [[id number]: 5] & L-sided diplopia with potential hemineglect [...] g and then continue on 200 mg deson ly. He will need baseline pulmonary function [...] My contact information: Paris Matt MD MPH [place] [phone] (office); Pager #[phone] Email: [email or web address] documented in this encounter Discharge Instructions Patient InstructionsFiRiki de jesus MD - 12/02/2019 9:56 AM EDT Images from the original note were not included. Why you were hospitalized: You had a heart attack. You received clot-busting medications at another hospital and then at [facility] you had a stent [...] FOR ONE MONTH AND THEN STOP. Your pressing machine operator may tell you to start this medication again after one year. Clopidogrel (Plavix) 75 mg daily - This medication will help prevent clots from forming in your blood, which will help protect the stent that was placed in your heart vessel. TAKE THIS FOR ONE YEAR ANDTHEN DISCUSS WITH YOUR AUTO MECHANIC SUPERVISOR WHETHER TO STOP. Amiodarone 400mg twice daily [...] follow up: Your primary care provider and pressing machine operator will manage your blood thinner (apixaban). You do not need lab monitoring of this medication. Diet: Please consume a healthy diet low in cholesterol Follow up Appointments: 12/10/2019 at 3:10PM with PCP Angel Luis Lott Future Appointments Date Time Provider Department Center 12/23/2019 1:30 PM Alfreda Salas APRN [facility] [id number] [facility] 12/26/2019 9:40 AM Merlin Sanchez MD [facility] CARD 4A [facility] 12/30/2019 3:40 PM Gretchen Yoon MD [facility] CARD 4A [facility] Future Appointments and Orders Future Appointments and Orders Future Appointments Provider Department Dept Phone 12/23/2019 1:30 PM Alfreda Salas APRN Neurosurgery at [facility] Arrive at: Home [phone] Please do not come in for this visit. Your provider will call you at the number you provided. 12/26/2019 9:40 AM Merlin Sanchez MD Cardiology at [facility] Arrive at: Home [phone] Please do not come in for this visit. Your provider will call you at the number you provided. 12/30/2019 3:40 PM Gretchen Yoon MD Cardiology at [facility] Arrive at: Home [phone] Please do not come in for this visit. Your provider will call you at the number you provided. Future Orders Complete By Expires Referral to Cardiac Rehab [[id number] Custom] As directed Process Instructions: If no progress note charted, please enter Clinical details in comments. Scheduling Instructions: Questions: My question or request is: STEMI. Cardiac rehab at [facility] Referral to [facility] [REF43 Custom] As directed Process Instructions: If no progress note charted, please enter Clinical details in comments. Scheduling Instructions: Questions: My question or request is: patient with inferior stemi with history of statin allergy (rash) - please evaluate for psck9 inhibitor. Referral to Home Health - at DISCHARGE [[id number] CPT(R)] As directed Process Instructions: Scheduling Instructions: Comments: DOCUMENTATION FOR VNA SERVICES PATIENT'S LOCATION: [address] [phone] (home) Tube Station Attendant's Name: Self In discussion with the attending physician, it is certified that this patient is under his/her care and that MD, or an DRIER AND EVAPORATOR OPERATOR, CLASSIFIER TENDER, or PA who is working directly with him/her, had a cekm-qc-self encounter that meets the physician ebro-ap-hrjt encounter requirements with this patient on 12/07/2019. [...] for managing ADLs. HOME HEALTH CARE AGENCY: [facility], PHONE: [phone] FAX: [phone] Start of care: 24-48 hours after hospital [...] MD [address] / [place] [address] All A agencies which cover the area of patient's residence have been reviewed, either verbally or in writing, and patient/family have chosen the home health care agency noted. Questions: Agency name and contact information: [facility] Patient location post discharge: Home What services are requested: Registered Nurse Physical Therapy Occupational Therapy Start date: Responsible MD post discharge contact info: PCP Your PCP: France Lam MD [phone] For questions regarding this document or issues relating to this hospitalization on the Cardiology Service, please contact your inpatient physician through the [facility] Planishing Hammer Operator . Issues after hours and on weekends will be handled by the Student Services Director on-call. Patient Instructions: Neurology Your Diagnosis: Left [...] follow-up appointment in the neurology clinic at [facility]. See below for the appointment time. If you do not have an appointment, you will be called with a time/date for this appointment. ??? Primary Care Provider: Please follow up with your Primary Care Provider within one to 2 weeks ofdischarge. AttachmentsThe following attachments cannot be sent through Care Everywhere. Atrial Fibrillation (Zambian)Cardiac Rehabilitation (Zambian)Heart Failure (Zambian)Heart Failure: Limiting Sodium (Zambian)Hemorrhagic Stroke: General Info (Zambian)Smoking: Stopping (Zambian)Stroke Rehabilitation: General Info (Zambian)Pulmonary Embolism (Zambian)documented in this encounter Medications at Time of [...] consulted in the interim. Vikash Rodriguez Pager: [phone] Paris Dodd MD - 12/08/2019 8:57 AM [...] complications include novel onset, paroxysmal atrial fibrillation [[id number]: 5] & L-sided diplopia with potential hemineglect [...] consulted in the interim. Vikash Rodriguez Pager: [phone] Paris Dodd MD - 12/07/2019 9:55 AM [...] complications include novel onset, paroxysmal atrial fibrillation [[id number]: 5] & L-sided diplopia with potential hemineglect [...] complications include novel onset, paroxysmal atrial fibrillation [CCF7MW7ZPHO: 5] & L-sided diplopia with potential hemineglect [...] complications include novel onset, paroxysmal atrial fibrillation [[id number]: 5] & L-sided diplopia with potential hemineglect [...] today; additional complications include paroxysmal atrial fibrillation [[id number]: 4] c/b possible cardioembolic stroke, ICH from [...] length from neck/greatest diameter to back wall: GUAMANIAN 91, CAU 13: 19 mm CORTES 1, [...] a non-culprit artery. S/P DESx3 in the qlrwbgyb-ux-ihoeqk RCA. Aspiration thrombectomy performed, and integrellin bolus [...] complications include novel onset, paroxysmal atrial fibrillation [RNR4WD5RDRP: 5] & L-sided diplopia with potential hemineglect [...] R occipital cardioembolic stroke #Paroxysmal Afib with KR3AYVFR0F score of 5 #New segmental bilateral PEs [...] Glasgow MD PGY1, Internal Medicine Cardiology S2, #7589 Associated attestation - Paris Dodd MD - 12/05/2019 2:59 PM EDT I was the assigned attending pressing machine operator for this clinical encounter. For the purposes [...] 12/04/2019 10:36 AM EDT Office of Care Management(OCM)/Weave Room Supervisor(CM)/Discharge Planning Service: Cardiology S2 team CM Bernie Alexander,RN,BSN,MA,ACM pgr [phone] Reviewed record and in Cardiology Rounds with MD team,CMs, gameplay engineer, MID LEVEL JAVA DEVELOPER. Pt is anticipated ready for d/c later today. Met w pt re d/c plan and he continues to agree with home PT/OT/RN w [place]. His son is bringing his to pick him up together. Discussed Advance Directives and DPOAH- he states he has at home and designated his as primiary; he thought his PCP would have copy. Tel call to PCP who notes no DPOAH on file. Encouraged pt to take his AD to his PCP and to any [facility] appt for each to [...] complications include novel onset, paroxysmal atrial fibrillation [GSG7IF5WMBH: 4] & L-sided diplopia with potential hemineglect [...] a non-culprit artery. S/P DESx3 in the phglufxk-ym-pltpcm RCA. Aspiration thrombectomy performed, and integrellin bolus [...] complications include novel onset, paroxysmal atrial fibrillation [[id number]: 5] & L-sided diplopia with potential hemineglect [...] R occipital cardioembolic stroke #Paroxysmal Afib with JW1VYOJE4I score of 5 - No anticoagulation for [...] Glasgow MD PGY1, Internal Medicine Cardiology S2, #[id number] I have seen the patient and reviewed [...] in my clinic. Gretchen Yoon MD Pager [phone] Derian Pascual RN - 12/03/2019 9:29 AM [...] Discharge: None Electronically signed: Derian Pascual RN, Weave Room Supervisor Pgr: [phone] 12/03/2019 9:29 AM Gretchen Yoon [...] complications include novel onset, paroxysmal atrial fibrillation [KDI3SH3SYVP: 4] & L-sided diplopia with potential hemineglect [...] a non-culprit artery. S/P DESx3 in the naxnhypf-nd-pduxak RCA. Aspiration thrombectomy performed, and integrellin bolus [...] complications include novel onset, paroxysmal atrial fibrillation [BCD1XT2YGPD: 5] & L-sided diplopia with potential hemineglect [...] [facility]. Patient voiced strong will to quit smoking now, understood that we have resources available for help. Plan [P]: --Neurologic-- # Concern for Left-Sided Diplopia, r/o Hemineglect # Concern for CVA, last-known well 11/29/19 - MRI showed possible cardioembolic stroke #Afib with RN1VZIFA2C score of 5 - Stroke Team Consulted; [...] Anticoagulation/Arrhythmia # Novel Onset, Paroxsymal Atrial Fibrillation [[id number]: 5] - Hold off anticoagulation for at [...] w straight cath prn # Nutrition - [facility] Diet, 2g Na. -- [...] Glasgow MD PGY1, Internal Medicine Cardiology S2, #[id number] I have seen the patient and reviewed the resident's above history and I agree with the details as written. The assessment and plan were formulated in discussion with me and I agree with them as documented. Gretchen Yoon MD Pager [phone] Raul Hein RN - 12/03/2019 5:55 AM [...] Q24H ??? metroNIDAZOLE 500 mg Intravenous Q8H BCEK ??? melatonin 3 mg Oral Nightly ??? [...] Negative mcL Appearance UA Clear Clear Spec [place] UA 1.026 1.006 - 1.030 Color UA [...] PGY3 Neurology Resident 12/01/2019 Vascular Neurology Pager [phone] Neurology Attending Attestation I evaluated the patient [...] documented. Deepthi Roman MD Vascular Neurology Standard [facility] Swallow Screen: This screen [...] diet as medical provider deems appropriate. Consider VP CLIENT SERVICES consult for full evaluation and diet recommendations. [...] complications include novel onset, paroxysmal atrial fibrillation [[id number]: 4] & L-sided diplopia with potential hemineglect [...] a non-culprit artery. S/P DESx3 in the tacaxolf-ie-emlgso RCA. Aspiration thrombectomy performed, and integrellin bolus [...] complications include novel onset, paroxysmal atrial fibrillation [[id number]: 5] & L-sided diplopia with potential hemineglect [...] Anticoagulation/Arrhythmia # Novel Onset, Paroxsymal Atrial Fibrillation [[id number]: 5] - Hold off anticoagulation - pending [...] tamsulosin d/t low BP. # Nutrition - [facility] Diet -- Hematology/Oncology-- # [...] Glasgow MD PGY1, Internal Medicine Cardiology S2, #3645 I have seen the patient and reviewed [...] the ICU team. Gretchen Yoon MD Pager [phone] Natalia Claros APRN - 12/02/2019 8:38 AM [...] - We are signing off. Please page [phone] with any questions or concerns. For questions please call NS pager [phone] Natalia Claros APRN 12/02/2019 8:38 AM Clinical Documentation Improvement: Active Hospital Problems Diagnosis ??? Acute ST elevation myocardial infarction (STEMI) of inferior wall ??? Intracranial hemorrhage ??? Hyperlipidemia ??? Tobacco abuse ??? Claudication from peripheral vascular disease, left Resolved Hospital Problems No resolved problems to display. Tello Hsu, TRAIN CREW MEMBER - 12/02/2019 2:06 AM EDT 06/01/20 2010 [...] number below. Electronically signed by: Latoya Ivey [facility] ([phone]), at 11/30/2019 8:32 PM ASSESSMENT: Patient states he is breathing easier than last night. Still increased WOB PLAN: Wean FiO2 as tolerated. Patient to CT Scan in afternoon. Upon arrival back in [facility] placed on low flow NC at [...] complications include novel onset, paroxysmal atrial fibrillation [[id number]: 4] & L-sided diplopia with potential hemineglect for which CVA evaluationto be pursued. Active Problems/Subjective: - 11/28: admitted for inferior STEMI, RV failure requiring pressor - got lytics, aspirin and plavix load, heparin gtt, and eptifibatide. 3 MACARIO stents to RCA. Pelican cath - low wedge & CVP so [...] a non-culprit artery. S/P DESx3 in the hrpexkit-qw-grclxe RCA. Aspiration thrombectomy performed, and integrellin bolus [...] complications include novel onset, paroxysmal atrial fibrillation [[id number]: 4] & L-sided diplopia with potential hemineglect [...] Anticoagulation/Arrhythmia # Novel Onset, Paroxsymal Atrial Fibrillation [[id number]: 4] - Obtain: TTE - Pending CVA [...] tamsulosin d/t low BP. # Nutrition - [facility] Diet -- Hematology/Oncology-- # [...] MD, PGY1 PGY3, Internal Medicine Cardiology S2, #5704 I have seen the patient and reviewed [...] down the line. Gretchen Yoon MD Pager [phone] ?? Gretchen Yoon MD Pager [phone] Natalai Claros APRN - 12/01/2019 1:33 AM EDT [...] per primary team For questions please call [employer] pager [phone] Natalia Claros APRN 12/01/2019 7:42 AM Clinical Documentation Improvement: Active Hospital Problems Diagnosis ??? Acute ST elevation myocardial infarction (STEMI) of inferior wall ??? Intracranial hemorrhage ??? Hyperlipidemia ??? Tobacco abuse ??? Claudication from peripheral vascular disease, left Resolved Hospital Problems No resolved problems to display. Tello Hsu, TRAIN CREW MEMBER - 11/30/2019 8:44 PM EDT Respiratory Therapy [...] number below. Electronically signed by: Latoya Ivey [facility] ([phone]), at 11/30/2019 8:32 PM ASSESSMENT: Patient had [...] EDT Narrative:Visited in response to request for [facility] Nurse services. Pt was awake, alert, oriented and in bed. Assessment:Patient coping positively with stresses of illness/hospitalization at this time. Pt says that he is hoping to get better and pt is living with and has children and grandchildren. Pt haspurpose of life and has reason to get getter and to be with family. Outcome: Provided emotional and spiritual support and encouraging presence. [facility] Nurse services accepted.Conversation to build trusting relationship.Provided pastoral [...] complications include novel onset, paroxysmal atrial fibrillation [[id number]: 4] & L-sided diplopia with potential hemineglect for which CVA evaluationto be pursued. Active Problems/Subjective: - Overnight, CVP < 12 for which a total of 1 L IVF provided - Today AM, patient complains of subjectively reported, left-sided hemineglect with floaters and diplopia [see: exam]. - Otherwise, c/o neck pain 2/2 R IJ Pelican & L radial A line. Otherwise, denies [...] a non-culprit artery. S/P DESx3 in the yxzivcjq-he-ivzfmf RCA. Aspiration thrombectomy performed, and integrellin bolus [...] complications include novel onset, paroxysmal atrial fibrillation [[id number]: 4] & L-sided diplopia with potential hemineglect [...] Anticoagulation/Arrhythmia # Novel Onset, Paroxsymal Atrial Fibrillation [[id number]: 4] - Obtain: TTE to confirm rhythm [...] tamsulosin d/t low BP. # Nutrition - [facility] Diet -- Hematology/Oncology-- # [...] MD, PGY3 PGY3, Internal Medicine Cardiology S2, #0430 I have seen the patient and reviewed [...] down the line. Gretchen Yoon MD Pager [phone] Paola Capps RN - 11/30/2019 6:57 AM EDT PT still requiring 4 of levo, several attempts to titrate down (maps in 70;s) But maps would drop toless than 65. Pt very restless in bed Raising and lowering head denies pain . Integrillin stopped [id number] when bottle complete , urine tea colored [...] PCP: France Lam MD PCP phone #: [phone] Front Line Supervisor: None ID/Chief Complaint: Chest pain History of Present Illness: 74 y.o male with no significant PMH, was in usual state of health until yesterday when he woke up at 4am this morning with severe crushing substernal chest pain 10/. He took two full strength aspirin and came to [facility] ED. At there was found [...] and Compazine. He was transferred directly to [facility] via [facility] for further management. Patient had an emergent PCI with 3 MACARIO stents placed to his RCA, with mild disease of LCX (report pending) at [facility]. He was found to be persistently hypotensive requiring Levo up to 10mcg/min. He was transferred to [facility] after the cath procedure. Bedside RHC showed CI 2.12, PAWP 11, PAP 38/15 indicating hypovolemic state. He received 1L bolus of NS with improvement of his blood pressure to 124/61. History of PAD, HLD - had side reactions to statins - so taking niacin and red rye grain. Chronic active smoker with more than 65 pack years. Family history of [place] in father and two uncles. He's takingbaby [...] ??? Penicillins Pt doesn't remember reaction ??? Ukzqoli-Kvv-Kzl Reductase Inhibitors Stiff neck, upset stomach, back pain Family History: Mother: Father: [place] 2 Uncles with MIs Social History: Tobacco: Current active smoker 1 ppd. 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 Vitals: Last value Range last [...] in the last 7068 hours. Invalid input(s): HZKMOVHOVCC5H Heme: No results for input(s): LDH, HAPTOGLOBIN, [...] OSH prior to transfer and PCI at [facility]. Massive inferior STEMI with troponin level 20, currently in CVCC due to pressor requirement. BedsideRHC demonstrated evidence of elevated right sided heart failure, but his wedge was wnl. He received 1L bolus with improvement of his blood pressure and reduction of his pressor requirement. PLAN: Admit to Cardiology, S2 Team Pager # [phone] #Inferior STEMI, LEYLA 149 - Resolving EKG [...] inferior STEMI s/p lytic therapy. Transferred to [facility] and underwent successful PCI of the RCA with MACARIO x3. Gretchen Yoon MD Pager [phone] documented in this encounter Procedure Notes Juventino [...] to the planned procedure. Hand Hygiene: The diet clerk did perform hand hygiene prior to arterial [...] a suspected line-associated infection. Location of Procedure: [facility] Risks and Benefits: The risks and [...] to the planned procedure. Hand Hygiene: The diet clerk did perform hand hygiene prior to line [...] side:right An Introducer (PSI Kit) was used. [place]. Insertion Side: right. Insertion Site: internal jugular. Catheter Details: Number of Lumens: 1 Catheter Type: heparin-coated The line was placed over a guidewire. Confirmation of Venous Placement: Venous placement was confirmed by transducing the pressure. Introducer Insertion Attempts: 1 Comments: Floating the Pelican-Mo Catheter Attempts: 1 Comments: Sterile Dressing: Biopatch [...] better pt back in [place]. Please page [phone] for any more cares or concerns Plan [...] complications include novel onset, paroxysmal atrial fibrillation [[id number]: 5]& L-sided diplopia with potential hemineglect for [...] Total Evaluation Minutes, Occupational Therapy: 10 Pager: [phone] FRANCINE Nuñez Occupational Therapy Rehabilitation Department Plan [...] HTNwho was admitted for inferior STEMI [s/p MCAARIO to RCA x3, residual LCx disease - non-culprit artery; s/p lytics] with clinical course complicated by RV failure manifesting as cardiogenic shock, for whichionotropic support to be initiated today; additional complications include novel onset, paroxysmal atrial fibrillation [OIF2NO2VMCX: 5] & L-sided diplopia with potential hemineglect [...] hand rails). Baseline Mobility: Independent. Drives. 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 Time IN / OUT: 3904-2610 Total Evaluation Minutes, Physical Therapy: 15(gtx1) Barbara Baldwin, PT Pager: [phone] Physical Therapy Inpatient Rehabilitation Department Plan of [...] (Interventions Implemented as Appropriate) 12/02/19200312/03/19 0812/03/19 1147 Beyre Fall Risk History of Falling -- 0 [...] he receives all he needs through the [facility]. Consult refused. Romain Tran, MSN, RN-, [facility] Tobacco Solar Energy Engineer [facility] Pager #[phone] Plan of Care - Romain Oglesby OT [...] complications include novel onset, paroxysmal atrial fibrillation [YZY3LY1ODEY: 5] & L-sided diplopia with potential hemineglect [...] and measurable assessment of functional outcome. Pager: [phone] ROMAIN OGLESBY OT 12/03/2019 Occupational Therapy Rehabilitation [...] in an outpatient cardiac rehabilitation program at [facility] was discussed. Patient agrees to a referral to this program. His has been a cardiac rehab patient at [facility] and he is familiar with the [...] complications include novel onset, paroxysmal atrial fibrillation [[id number]: 5] & L-sided diplopia with potential hemineglect [...] hand rails). Baseline Mobility: Independent. Drives. 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 Time IN / OUT: 1950-6526 Total Evaluation Minutes, Physical Therapy: 25(eval, gtx1) Barbara Baldwin, PT Pager: [phone] Physical Therapy Inpatient Rehabilitation Department Consult Note [...] 31.2 (L) 12/01/2019 Nutritional Intake Current bed: [facility] Assessment: Patient is with an [...] Please contact JOHANNA NOBLES RN on pager [phone] or the wound care team at [phone] or pager [phone] skin and wound care concerns or questions. [...] Sal[place] would be surrogate decision maker per [place] surrogate decision making law. Any patient receiving carspousee at [facility] must abide by [place] law. The hierarchy for surrogate decisionmaking is: [...] (i) The agent with financial power of patent attorney or a conservator appointed in accordance with RSA 464-A. (j) The guardian of the patient???s estate. Current Coping/Education/Information Needs: States coping well w/ hospitalization Current Functional Ability: TBD, not OOB yet Functional Status Prior to Admission: Independent Home Environment: Lives w/ spouse in mobile home; 3 LVEY Social & Family Supports/Community Resources: Family Behavioral Health History: Denies anxiety or depression Substance Use/Abuse: Current smoker (1ppd). Denies alcohol or non-prescribed substances Other Pertinent/Service Specific Information: No Health/Prescription Coverage: Primary Insurance: MEDICARE Secondary Insurance: N/A Prescription Coverage: Yes Preferred Pharmacy: [place], [place] Other: No Primary Care Provider: France Lam MD [phone] Patient/Caregiver Goals of Treatment: Return home Potential Needs for Transition of Care: Rehab/SNF: Based on discussions with the multi-disciplinary healthcare team, the patient would benefit from SNF level of care at discharge. ?? I have met with the patient to discuss discharge planning needs. I have provided the [facility], Officeof Care Management letter from the [facility] pertaining to rehab referrals. I have also provided a letter describing our affiliations within the [facility] and educated them about their [...] patient have requested referrals to: ?? 1. [facility] [address] [place] [id number] ?? [address] [place] [address] Note routed to Daytime Caregiver who will communicate referrals to facilities and provide any required information. Home Health: If therapies recommend home w/ VNA, the patient has been provided a list of Home Health Agencies/DME vendors which serve their preferred geographic area. A letter describing our affiliations was reviewed with them and they were educated about their right to choose where referrals are placed. Patient requests referral to [facility] [place]. PHONE: [phone] FAX: [phone] Referral routed to the Daytime Caregiver for matching with agency/vendor and to provide [...] Insured w/ Medicare. Gets medications filled at [facility] in [place], [place]. Son to transport at discharge Plan: Discharge dispo depending on patient's physical recovery; SNF vs home w/ VNA. A member of the Care Management team will continue to monitor progress, follow for continuity of care and assist with transition of care planning. Derian Pascual, NIURKA Pager: [phone] Plan of Care - Estefani Baeza RN [...] ??? Penicillins Pt doesn't remember reaction ??? Elpaqvk-Qsq-Rup Reductase Inhibitors Stiff neck, upset stomach, back [...] noncontrast head CT and CT of [place] at 1600 hrs. We will [...] vision concerning for stroke. Patient presented to [facility] in transfer for a [...] ??? Penicillins Pt doesn't remember reaction ??? Pyzanyj-Wap-Paw Reductase Inhibitors Stiff neck, upset stomach, back [...] file Gets together: Not on file Attends catholic service: Not on file Active member of [...] L Elbow flexion 5/5 R, 5/5 L Medical Receptionist LE: 5/5 R, 5/5 L Hip flexion [...] PGY3 Neurology Resident 11/30/2019 Vascular Neurology Pager [phone] Standard [facility] Swallow Screen: This screen [...] diet as medical provider deems appropriate. Consider VP CLIENT SERVICES consult for full evaluation and diet recommendations. [...] Afib admitted s/p thrombolysis and Cath-Stent to [facility] who developed R sided visual symptoms. [...] hours. Evan Mejia MD Department of Neurology [facility] Brief Op Note - Gretchen Yoon MD - 11/29/2019 8:38 PM EDT Brief Operative Note Patient Name: Angel Luis Salinas : [id number] MR#: [id number] Case Date: 11/29/2019 Surgeon: Surgeon(s) and Role: * Gretchen Yoon MD - Primary * Aidan Ward MD - Fellow Preoperative diagnosis: Inferior STEMI Postoperative diagnosis: Inferior STEMI Procedure(s) (LRB): CARDIAC CATHETERIZATION (N/A) Findings: Discrete 90% stenosis in the prox-to-mid RCA. Severe diffuse disease in the distal vessel. Discrete LCX stenosis in a non-culprit artery. S/P DESx3 in the oumddrlf-dl-luixvq RCA. Aspiration thrombectomy performed, and integrellin bolus [...] are i n the results section. CT [facility] [place] W STAT 11/30/2019 4:36 Res [...] athologist Signature Potassium 3.9 3.5 - 5.0 [facility] mmol/L [facility] Comment: Please note: ??Patients [...] Organization Address City/State/[place] [address] (ABNORMAL) Hemogram (12/08/2019 12:39 PM EDT) Analysis Performed At Patho logist Time Signature WBC 9.9 (H) 4.0 - 9.[address] [facility] x10(3)/[facility] LABORATORY RBC 4.51 (L) 4.58 - [place] D[place] 5.54 [facility] x10(6)/[facility] LABORATORY Hemoglobin 13.0 (L) 13.7 - [place] 16.5 gm/dL [facility] Hematocrit 40.5 40.5 - [place] 48.5 % [facility] MCV 89.8 82.9 - [facility] DOV 93.1 [facility] LABORATORY MCH 28.8 27.5 - [place] 32.1 pg [facility] MCHC 32.1 32.0 - [place] 35.7 gm/dL [facility] Platelets 214 145 - 357 [facility] x10(3)/[facility] LABORATORY RDWSD 49.2 (H) 36.0 - [place] 45.0 [facility] LABORATORY RDWCV 15.1 (H) 11.4 - [place] 13.8 % [facility] MPV 12.1 7.6 - 12.9 [facility] nRBC % Auto 0.0 % [facility] LAB[facility]ORY nRBC Abs Auto 0.000 0.000 - [place] 0.000 [facility] x10(3)/[facility] LABORATORY Specimen Anatomical Collection Method Collection Time Receive d Time (Source) Location / / Volume Laterality Blood specimen 12/08/2019 12:39 0 (specimen) PM EDT 12:47 PM EDT Resulting Agency Comment Spec In Lab Gretchen Yoon MD HEMATOLOGY ORDERABLES Performing Organization Address City/State/ZIP Code Phon e Number [address] Hepatic Function Panel (12/08/2019 6:28 AM EDT) athologist Signature Total Protein 6.6 6.1 - 8.0 [facility] DOV gm/dL [facility] Albumin 3.2 3.2 - 5.2 [place] gm/dL [facility] AST 18 0 - 39 [place] unit/L [facility] ALT 13 0 - 55 [place] unit/L [facility] Alk Phos 64 40 - 130 [facility] DOV unit/L [facility] Total 0.4 0.2 - 1.3 [facility] Bilirubin mg/dL [facility] Bili, Direct 0.1 0.0 - 0.3 [facility] DOV mg/dL [facility] Specimen Anatomical Collection Method Collection Time Receive d Time (Source) Location / / Volume Laterality Blood specimen Venous Draw / 12/08/2019 6:28 AM 2019 6:36 (specimen) Unknown EDT AM EDT Resulting Agency Comment Spec In Lab Riki Stevens MD CHEMISTRY ORDERABLES Performing Organization Address City/[facility]/ZIP Code Phon e Number [address] (ABNORMAL) TSH (12/08/2019 6:28 AM EDT) athologist Signature TSH 5.27 (H) 0.27 - 4.20 [facility] DOV mcIU/mL [facility] Specimen Anatomical Collection Method Collection Time Receive d Time (Source) Location / / Volume Laterality Blood specimen Venous Draw / 12/08/2019 6:28 AM 2019 6:36 (specimen) Unknown EDT AM EDT Resulting Agency Comment Spec In Lab Darrell Glasgow MD CHEMISTRY ORDERABLES Performing Organization Address City/[facility]/ZIP Code Phon e Number [address] Potassium (12/08/2019 6:28 AM EDT) P athologist Signature Potassium 4.2 3.5 - 5.0 [facility] mmol/L [facility] Comment: Please note: ??Patients [...] Organization Address City/State/ZIP Code Phon e Number [place] [id number] (ABNORMAL) Differential, Automated (12/08/2019 12:43 AM EDT) Patholo gist Method Time Signature Neutrophils % 60.7 % [facility] Neutr Abs (ANC) 6.81 (H) 1.70 - [facility] 6.10 [facility] x10(3)/[facility] LABORATORY Lymphocytes % 23.4 % [facility] Lymphocytes Abs 2.6 0.9 - 3.2 [facility] x10(3)/[facility] LABORATORY Monocytes % 10.0 % [facility]ORY Monocyte Abs 1.1 (H) 0.3 - 0.9 [facility] x10(3)/[facility] LABORATORY Eosinophils % 3.7 % [facility]ORY Eosinophils Abs 0.4 0.0 - 0.4 [facility] x10(3)/[facility] LABORATORY Basophils % 1.2 % [facility] LABORATORY Basophils Abs 0.1 0.0 - 0.1 [facility] x10(3)/[facility] LABORATORY Immature Gran % 1.00 % [facility] Comment: Immature granulocytes(IG's)percentage an d absolute count will include metamyelocytes, myelocytes, and promyelo cytes. Blood smears from CBCs yielding IG's will be scanned manually for concor dance. If this scan disagrees with the automated IG or if promyelocytes are not ed, a manual differential will be performed. Pita Gran Abs 0.11 (H) 0.00 - 0.04 x10(3)/[facility] LABORATORY Specimen Anatomical Collection Method Collection Time Receive d Time (Source) Location / / Volume Laterality Blood specimen 12/08/2019 12:43 0 (specimen) AM EDT 12:52 AM EDT Resulting Agency Comment Spec In Lab Riki Stevens MD HEMATOLOGY ORDERABLES Performing Organization Address City/State/[place] [address] (ABNORMAL) Hemogram (12/08/2019 12:43 AM EDT) Analysis Performed At Patho logist Time Signature WBC 11.2 (H) 4.0 - 9.5 [facility] x10(3)/[facility] LABORATORY RBC 4.46 (L) 4.58 - [facility] DOV 5.54 [facility] x10(6)/[facility] LABORATORY Hemoglobin 13.1 (L) 13.7 - [facility] 16.[facility] gm/dL [facility] Hematocrit 40.5 40.5 - [facility] DOV 48.5 % [facility] MCV 90.8 82.9 - [facility] 93.1 [facility] LABORATORY MCH 29.4 27.5 - [facility] DOV 32.1 pg [facility] MCHC 32.3 32.0 - [facility] DOV 35.7 gm/dL [facility] Platelets 215 145 - 357 [facility] x10(3)/[facility] LABORATORY RDWSD 49.8 (H) 36.0 - [facility] DOV 45.0 [facility] LABORATORY RDWCV 15.2 (H) 11.4 - [facility] DOV 13.8 % [facility]ORATORY MPV 12.3 7.6 - 12.9 [facility] LABORATORY nRBC % Auto 0.0 % [facility] LABORATORY nRBC Abs Auto 0.000 0.000 - [facility] DOV 0.000 [facility] x10(3)/[facility] LABORATORY Specimen Anatomical Collection Method Collection Time Receive d Time (Source) Location / / Volume Laterality Blood specimen 12/08/2019 12:43 0 (specimen) AM EDT 12:52 AM EDT Resulting Agency Comment Spec In Lab Riki Stevens MD HEMATOLOGY ORDERABLES Performing Organization Address City/State/ZIP Code Phon e Number [address] Magnesium (12/08/2019 12:43 AM EDT) athologist Signature Magnesium 1.01 0.69 - 1.[address] [facility] mmol/L [facility] LABORATORY Specimen Anatomical Collection Method Collection Time Receive d Time (Source) Location / / Volume Laterality Blood specimen 12/08/2019 12:43 0 (specimen) AM EDT 12:52 AM EDT Resulting Agency Comment Spec In Lab Gretchen Yoon MD CHEMISTRY ORDERABLES Performing Organization Address City/State/[place] [address] (ABNORMAL) BMP w/fasting Glucose (12/08/2019 12:43 AM EDT) P athologist Signature Glucose 106 (H) 65 - 99 [facility]dL [facility] Comment: ?Fasting* Glucose Interpretive [...] of Diabetes Mellitus, Position Statement from the [place] [employer]. ??Diabete s Care, Volume 33, Supplement 1, Jul 2009 BUN 14 10 - 20 mg/dL [facility] DOV [facility] LABORATORY Creatinine 1.16 0.80 - 1.50 mg/dL [facility] LABORATORY Sodium 134 (L) 135 [...] estions. Chloride 99 98 - 107 mmol/L [facility] LABORATORY CO2 19 (L) 22 - 31 mmol/L [facility] LABOR[facility] Anion Gap 16 (H) 5 - 15 mmol/L [facility] LABORATORY Calcium 8.9 8.5 - 10.5 mg/dL [facility] LABORATORY Estimated GFR 62 >=60 mL/min/1.73 m?? [facility] LAB[facility] Comment: The eGFR was calculated using the CKD-EP I equation. As with all creatinine based estimates of kidney function, eGFR values calculated with the CKD-EPI equation are not accurate in patients wi th acute kidney failure, extremes of body mass or the acutely ill. [email or web address] [email or web address] eGFR 72 >=60 mL/min/1.73 m?? [facility] LABOR[facility]ORY Comment: The eGFR was calculated using the CKD-EP I equation. As with all creatinine based estimates of kidney function, eGFR values calculated with the CKD-EPI equation are not accurate in patients wi th acute kidney failure, extremes of body mass or the acutely ill. [email or web address] [email or web address] Specimen Anatomical Collection Method Collection Time Receive d Time (Source) Location / / Volume Laterality Blood specimen 12/08/2019 12:43 0 (specimen) AM EDT 12:52 AM EDT Resulting Agency Comment Spec In Lab Gretchen Yoon MD CHEMISTRY ORDERABLES Performing Organization Address City/State/ZIP Code Phon e Number [place] [id number]OS[address] Heparin (unfractionated) Level (12/08/2019 12:43 AM EDT) athologist Signature Heparin UFH 0.60 IU/mL [facility] LABORATORY Comment: Guidelines for therapeutic unfractionate d [...] Organization Address City/State/[place] [address] Potassium (12/07/2019 8:39 PM EDT) athologist Signature Potassium 4.1 3.5 - 5.0 [facility] mmol/L [facility] LABORATORY Comment: Please note: ??Patients [...] Organization Address City/State/ZIP Code Phon e Number [address] Potassium (12/07/2019 4:02 PM EDT) P athologist Signature Potassium 4.0 3.5 - 5.0 [facility] DOV mmol/L [facility] LABORATORY Comment: Please note: ??Patients [...] Yoon MD CHEMISTRY ORDERABLES Performing Organization Address City/[facility]/[place]IP [place] [address] (ABNORMAL) Hemogram (12/07/2019 4:02 PM EDT) Analysis Performed At Patho logist Time Signature WBC 17.4 (H) 4.0 - 9.5 [place] D[facility] x10(3)/[facility] LABORATORY RBC 4.58 4.58 - [place] DOV 5.54 [facility] x10(6)/[facility] LABORATORY Hemoglobin 13.5 (L) 13.7 - [place] DOV 16.5 gm/dL [facility] LABORATORY Hematocrit 40.8 40.5 - [place] DOV 48.5 % [facility] LABORATORY MCV 89.1 82.9 - [place] DOV 93.1 [facility] LABORATORY MCH 29.5 27.5 - [place] DOV 32.1 pg [facility] LABORATORY MCHC 33.1 32.0 - [place] DOV 35.7 gm/dL [facility] LABORATORY Platelets 238 145 - 357 [place] D[facility] x10(3)/[facility] LABORATORY RDWSD 48.8 (H) 36.0 - [place] DOV 45.0 [facility] LABORATORY RDWCV 15.0 (H) 11.4 - [facility] DOV 13.8 % [facility] LABORATORY MPV 12.2 7.6 - 12.9 [place] DOV [facility] LABORATORY nRBC % Auto 0.0 % [facility] LABORATORY nRBC Abs Auto 0.000 0.000 - [place] MONAE 0.000 [facility] x10(3)/[facility] LABORATORY Specimen Anatomical Collection Method Collection Time Receive d Time (Source) Location / / Volume Laterality Blood specimen 12/07/2019 4:02 PM 020 4:08 (specimen) EDT PM EDT Resulting Agency Comment Spec In Lab Gretchen Yoon MD HEMATOLOGY ORDERABLES Performing Organization Address City/[facility]/[place] [address] EKG 12 Lead (12/07/2019 [...] (Bezet) Calculated P -12 degrees [facility] [place] Calculated R 10 degrees [facility] [place] Calculated T -138 degrees [facility] [place] INTERPRETATION Supraventricular tachycardia MUSE SYSTEM Low voltage [...] athologist Signature Potassium 4.2 3.5 - 5.0 [facility] mmol/L [facility] LABORATORY Comment: Please note: ??Patients [...] Lagos MD CHEMISTRY ORDERABLES Performing Organization Address [facility] [place] [address] Heparin (unfractionated) Level (12/07/2019 11:43 AM EDT) athologist Signature Heparin UFH 0.59 IU/mL [facility] LABORATORY Comment: Guidelines for therapeutic unfractionate d [...] Lagos MD HEMATOLOGY ORDERABLES Performing Organization Address [facility] [place] [address] Heparin (unfractionated) Level (12/07/2019 5:20 AM EDT) P athologist Signature Heparin UFH 0.53 IU/mL [facility] LABORATORY Comment: Guidelines for therapeutic unfractionate d [...] Organization Address City/State/[place] [address] (ABNORMAL) Differential, Automated (12/07/2019 5:20 AM EDT) Patholo gist Method Time Signature Neutrophils % 62.4 % [facility] LABORATORY Neutr Abs (ANC) 5.46 1.70 - [facility] 6.10 [facility] x10(3)/[facility] LABORATORY Lymphocytes % 20.3 % [facility] LABORATORY Lymphocytes Abs 1.8 0.9 - 3.2 [facility] x10(3)/[facility] LABORATORY Monocytes % 11.0 % [facility] LABORATORY Monocyte Abs 1.0 (H) 0.3 - 0.9 [facility] x10(3)/[facility] LABORATORY Eosinophils % 4.5 % [facility] LABORATORY Eosinophils Abs 0.4 0.0 - 0.4 [facility] x10(3)/[facility] LABORATORY Basophils % 0.9 % [facility] LABORATORY Basophils Abs 0.1 0.0 - 0.1 [facility] x10(3)/[facility] LABORATORY Immature Gran % 0.90 % [facility] LABORATORY Comment: Immature granulocytes(IG's)percentage an d absolute count will include metamyelocytes, myelocytes, and promyelo cytes. Blood smears from CBCs yielding IG's will be scanned manually for concor dance. If this scan disagrees with the automated IG or if promyelocytes are not ed, a manual differential will be performed. Pita Gran Abs 0.08 (H) 0.00 - 0.04 x10(3)/[facility] LABORATORY Specimen Anatomical Collection Method Collection Time Receive d Time (Source) Location / / Volume Laterality Blood specimen 12/07/2019 5:20 AM 020 5:37 (specimen) EDT AM EDT Resulting Agency Comment Spec In Lab Riki Stevens MD HEMATOLOGY ORDERABLES Performing Organization Address City/State/[place] [address] (ABNORMAL) Hemogram (12/07/2019 5:20 AM EDT) Analysis Performed At Patho logist Time Signature WBC 8.7 4.0 - 9.5 [facility] x10(3)/[facility] LABORATORY RBC 4.20 (L) 4.58 - [facility] 5.54 [facility] x10(6)/[facility] LABORATORY Hemoglobin 12.3 (L) 13.7 [facility] 16.5 gm/dL [facility] LABORATORY Hematocrit 37.4 (L) 40.5 - [facility] 48.5 % [facility] LABORATORY MCV 89.0 82.9 - [facility] 93.1 fL [facility]ATORY MCH 29.3 27.5 - [facility] 32.1 pg [facility] LAB[facility]AT[facility] MCHC 32.9 32.0 - [place] MONAE 35.7 gm/dL [facility] LABORATORY Platelets 181 145 - 357 [place] MON[place] x10(3)/[facility] LABORATORY RDWSD 47.7 (H) 36.0 - [place] MON[place] 45.0 [facility] LABORATORY RDWCV 14.8 (H) 11.4 - [place] MONAE 13.8 % [facility] LABORATORY MPV 12.3 7.6 - 12.9 [place] DOV [facility] LABORATORY nRBC % Auto 0.0 % [facility] LABORATORY nRBC Abs Auto 0.000 0.000 - [place] MONAE 0.000 [facility] x10(3)/[facility] LABORATORY Specimen Anatomical Collection Method Collection Time Receive d Time (Source) Location / / Volume Laterality Blood specimen 12/07/2019 5:20 AM 020 5:37 (specimen) EDT AM EDT Resulting Agency Comment Spec In Lab Riki Stevens MD HEMATOLOGY ORDERABLES Performing Organization Address City/[facility]/ZIP Code Phon e Number [address] Magnesium (12/07/2019 5:20 AM EDT) P athologist Signature Magnesium 0.89 0.69 - 1.07 [facility]/L [facility] LABORATORY Specimen Anatomical Collection Method Collection Time Receive d Time (Source) Location / / Volume Laterality Blood specimen 12/07/2019 5:20 AM 020 5:37 (specimen) EDT AM EDT Resulting Agency Comment Spec In Lab Gretchen Yoon MD CHEMISTRY ORDERABLES Performing Organization Address City/[facility]/ZIP Code Phon e Number [address] (ABNORMAL) BMP w/fasting Glucose (12/07/2019 5:20 AM EDT) P athologist Signature Glucose 100 (H) 65 - 99 [facility] Fasting mg/dL [facility] LABORATORY Comment: ?Fasting* Glucose Interpretive [...] of Diabetes Mellitus, Position Statement from the [place] [employer]. ??Diabete s Care, Volume 33, Supplement 1, Jul 2009 BUN 14 10 - 20 mg/dL [facility] LABORATORY Creatinine 0.83 0.80 - 1.50 mg/dL [facility] LABORATORY Sodium 135 135 - [...] estions. Chloride 101 98 - 107 mmol/L [facility] LABORATORY CO2 20 (L) 22 - 31 mmol/L [facility] LABOR[facility]ORY Anion Gap 14 5 - 15 mmol/L [facility] LABORATORY Calcium 8.8 8.5 - 10.5 mg/dL [facility] LABORATORY Estimated GFR 87 >=60 mL/min/1.73 m?? [facility] Comment: The eGFR was calculated using the CKD-EP I equation. As with all creatinine based estimates of kidney function, eGFR values calculated with the CKD-EPI equation are not accurate in patients wi th acute kidney failure, extremes of body mass or the acutely ill. [email or web address] eGFR 101 >=60 mL/min/1.73 m?? [facility] LAB[facility]ORY Comment: The eGFR was calculated using the CKD-EP I equation. As with all creatinine based estimates of kidney function, eGFR values calculated with the CKD-EPI equation are not accurate in patients wi th acute kidney failure, extremes of body mass or the acutely ill. [email or web address] Specimen Anatomical Collection Method Collection Time Receive d Time (Source) Location / / Volume Laterality Blood specimen 12/07/2019 5:20 AM 020 5:37 (specimen) EDT AM EDT Resulting Agency Comment Spec In Lab Gretchen Yoon MD CHEMISTRY ORDERABLES Performing Organization Address [facility] [place] [address] Heparin (unfractionated) Level (12/06/2019 10:14 PM EDT) athologist Signature Heparin UFH 0.29 IU/mL [facility] LABORATORY Comment: Guidelines for therapeutic unfractionate d [...] Lagos MD HEMATOLOGY ORDERABLES Performing Organization Address [facility] [place] [address] Head wo Contrast [...] For questions regarding this report, please contact [facility] number below. ? Electronically signed by: Merari Collins [facility] ([phone]), at 12/06/2019 10:06 PM Narrative 12/06/2019 10:06 [...] number below. Electronically signed by: Merari Collins [facility] ([phone]), at 12/06/2019 10:06 PM [place] Lagos MD IMG CT ORDERABLES (ABNORMAL) Hemogram (12/06/2019 4:20 PM EDT) Analysis Performed At Patho logist Time Signature WBC 10.4 (H) 4.0 - 9.[address] [facility] x10(3)/[facility] LABORATORY RBC 4.32 (L) 4.58 - [facility] DOV 5.54 [facility] x10(6)/[facility] LABORATORY Hemoglobin 12.5 (L) 13.7 - [facility] 16[facility] gm/dL [facility] LABORATORY Hematocrit 38.4 (L) 40.5 - [facility] 48.5 % [facility] LABORATORY MCV 88.9 82.9 - [facility] 93.1 [facility] LABORATORY MCH 28.9 27.5 - [facility] DOV 32.1 pg [facility] LABORATORY MCHC 32.6 32.0 - [facility] 35.7 gm/dL [facility] LABORATORY Platelets 194 145 - 357 [facility] x10(3)/[facility] LABORATORY RDWSD 46.9 (H) 36.0 - [facility] 45.0 [facility] LABORATORY RDWCV 14.6 (H) 11.4 - [facility] 13.8 % [facility] LABORATORY MPV 11.9 7.6 - 12.9 [facility] LABORATORY nRBC % Auto 0.0 % [facility] LABORATORY nRBC Abs Auto 0.000 0.000 - [facility] DOV 0.000 [facility] x10(3)/[facility] LABORATORY Specimen Anatomical Collection Method Collection Time Receive d Time (Source) Location / / Volume Laterality Blood specimen 12/06/2019 4:20 PM 020 4:31 (specimen) EDT PM EDT Resulting Agency Comment Spec In Lab Gretchen Yoon MD HEMATOLOGY ORDERABLES Performing Organization Address City/State/[place] [address] Heparin (unfractionated) Level (12/06/2019 4:20 PM EDT) P athologist Signature Heparin UFH 0.30 IU/mL [facility] LABORATORY Comment: Guidelines for therapeutic unfractionate d [...] Organization Address City/State/[place] [address] Heparin (unfractionated) Level (12/06/2019 10:02 AM EDT) athologist Signature Heparin UFH <0.04 IU/mL [facility] LABORATORY Comment: Guidelines for therapeutic unfractionate d [...] Lagos MD HEMATOLOGY ORDERABLES Performing Organization Address City/[facility]/ZIP Code Phon e Number [address] Magnesium (12/06/2019 3:36 AM EDT) P athologist Signature Magnesium 0.86 0.69 - 1.07 [facility] mmol/L [facility] LABORATORY Specimen Anatomical Collection Method Collection Time Receive d Time (Source) Location / / Volume Laterality Blood specimen 12/06/2019 3:36 AM 020 3:45 (specimen) EDT AM EDT Resulting Agency Comment Spec In Lab Gretchen Yoon MD CHEMISTRY ORDERABLES Performing Organization Address City/[facility]/ZIP Code Phon e Number [address] (ABNORMAL) BMP w/fasting Glucose (12/06/2019 3:36 AM EDT) P athologist Signature Glucose 103 (H) 65 - 99 [facility] Fasting mg/dL [facility] LABORATORY Comment: ?Fasting* Glucose Interpretive [...] of Diabetes Mellitus, Position Statement from the [place] [employer]. ??Diabete s Care, Volume 33, Supplement 1, Jul 2009 BUN 20 10 - 20 mg/dL [facility] LABORATORY Creatinine 0.88 0.80 - 1.50 mg/dL [facility] LABORATORY Sodium 136 135 - [...] estions. Chloride 103 98 - 107 mmol/L [facility] LABORATORY CO2 19 (L) 22 - 31 mmol/L [facility] LABORATORY Anion Gap 14 5 - 15 mmol/L [facility] LABORATORY Calcium 8.7 8.5 - 10.5 mg/dL [facility] LABORATORY Estimated GFR 85 >=60 mL/min/1.73 m?? [facility] Comment: The eGFR was calculated using the CKD-EP I equation. As with all creatinine based estimates of kidney function, eGFR values calculated with the CKD-EPI equation are not accurate in patients wi th acute kidney failure, extremes of body mass or the acutely ill. [email or web address] eGFR 99 >=60 mL/min/1.73 m?? [facility] LAB[facility]ORY Comment: The eGFR was calculated using the CKD-EP I equation. As with all creatinine based estimates of kidney function, eGFR values calculated with the CKD-EPI equation are not accurate in patients wi th acute kidney failure, extremes of body mass or the acutely ill. [email or web address] Specimen Anatomical Collection Method Collection Time Receive d Time (Source) Location / / Volume Laterality Blood specimen 12/06/2019 3:36 AM 020 3:45 (specimen) EDT AM EDT Resulting Agency Comment Spec In Lab Gretchen Yoon MD CHEMISTRY ORDERABLES Performing Organization Address City/State/ZIP Code Phon e Number [address] (ABNORMAL) Hemogram (12/06/2019 3:36 AM EDT) Analysis Performed At Patho logist Time Signature WBC 9.2 4.0 - 9.[address] [facility] x10(3)/[facility] LABORATORY RBC 3.99 (L) 4.58 - [place] DOV 5.54 [facility] x10(6)/[facility] LABORATORY Hemoglobin 11.9 (L) 13.7 - [facility] 16.5 gm/dL [facility] LABORATORY Hematocrit 35.5 (L) 40.5 - [facility] 48.5 % [facility] LABORATORY MCV 89.0 82.9 - [facility] 93.1 [facility] LABORATORY MCH 29.8 27.5 - [place] DOV 32.1 pg [facility] LABORATORY MCHC 33.5 32.0 - [place] DOV 35.7 gm/dL [facility] LABORATORY Platelets 164 145 - 357 [facility] x10(3)/[facility] LABORATORY RDWSD 47.6 (H) 36.0 - [place] DOV 45.0 [facility] LABORATORY RDWCV 14.7 (H) 11.4 - [facility] 13.8 % [facility] LABORATORY MPV 11.9 7.6 - 12.9 [facility] LABORATORY nRBC % Auto 0.0 % [facility] LABORATORY nRBC Abs Auto 0.000 0.000 - [facility] DOV 0.000 [facility] x10(3)/[facility] LABORATORY Specimen Anatomical Collection Method Collection Time Receive d Time (Source) Location / / Volume Laterality Blood specimen 12/06/2019 3:36 AM 020 3:45 (specimen) EDT AM EDT Resulting Agency Comment Spec In Lab Gretchen Yoon MD HEMATOLOGY ORDERABLES Performing Organization Address City/[facility]/ZIP Code Phon e Number [address] (ABNORMAL) Differential, Automated (12/05/2019 10:52 PM EDT) Patholo gist Method Time Signature Neutrophils % 61.9 % [facility] LABORATORY Neutr Abs (ANC) 6.02 1.70 - [facility] 6.10 [facility] x10(3)/[facility] LABORATORY Lymphocytes % 22.4 % [facility] LABORATORY Lymphocytes Abs 2.2 0.9 - 3.2 [facility] x10(3)/[facility] LABORATORY Monocytes % 10.4 % [facility] LABORATORY Monocyte Abs 1.0 (H) 0.3 - 0.9 [facility] x10(3)/[facility] LABORATORY Eosinophils % 4.1 % [facility] LABORATORY Eosinophils Abs 0.4 0.0 - 0.4 [facility] x10(3)/[facility] LABORATORY Basophils % 0.7 % [facility] LABORATORY Basophils Abs 0.1 0.0 - 0.1 [facility] x10(3)/[facility] LABORATORY Immature Gran % 0.50 % [facility]ORATORY Comment: Immature granulocytes(IG's)percentage an d absolute count will include metamyelocytes, myelocytes, and promyelo cytes. Blood smears from CBCs yielding IG's will be scanned manually for concor dance. If this scan disagrees with the automated IG or if promyelocytes are not ed, a manual differential will be performed. Pita Gran Abs 0.05 (H) 0.00 - 0.04 x10(3)/[facility] LABORATORY Specimen Anatomical Collection Method Collection Time Receive d Time (Source) Location / / Volume Laterality Blood specimen 12/05/2019 10:52 0 (specimen) PM EDT 10:59 PM EDT Resulting Agency Comment Spec In Lab Mandi Barrera MD HEMATOLOGY ORDERABLES Performing Organization Address City/State/[place] [address] (ABNORMAL) Hemogram (12/05/2019 10:52 PM EDT) Analysis Performed At [facility] logist Time Signature WBC 9.7 (H) 4.0 - 9.5 [facility] x10(3)/[facility] LABORATORY RBC 4.07 (L) 4.58 - [place] DOV 5.54 [facility] x10(6)/[facility] LABORATORY Hemoglobin 11.9 (L) 13.7 - [place] 16.5 gm/dL [facility] LABORATORY Hematocrit 36.4 (L) 40.5 - [place] 48.5 % [facility] LABORATORY MCV 89.4 82.9 - [facility] 93.1 [facility] LABORATORY MCH 29.2 27.5 - [place] DOV 32.1 pg [facility] LABORATORY MCHC 32.7 32.0 - [place] D[facility] 35.7 gm/dL [facility] LABORATORY Platelets 167 145 - 357 [facility] x10(3)/[facility] LABORATORY RDWSD 47.7 (H) 36.0 - [facility] 45.0 [facility] LABORATORY RDWCV 14.6 (H) 11.4 - [facility] 13.8 % [facility] LABORATORY MPV 12.1 7.6 - 12.9 [facility] LABORATORY nRBC % Auto 0.0 % [facility] LABORATORY nRBC Abs Auto 0.000 0.000 - [facility] 0.000 [facility] x10(3)/[facility] LABORATORY Specimen Anatomical Collection Method Collection Time Receive d Time (Source) Location / / Volume Laterality Blood specimen 12/05/2019 10:52 0 (specimen) PM EDT 10:59 PM EDT Resulting Agency Comment Spec In Lab Mandi Barrera MD HEMATOLOGY ORDERABLES Performing Organization Address City/State/[place] [address] Heparin (unfractionated) Level (12/05/2019 10:52 PM EDT) P athologist Signature Heparin UFH <0.04 IU/mL [facility] LABORATORY Comment: Guidelines for therapeutic unfractionate d [...] Organization Address City/State/[place] [address] MRI Brain wwo Contrast [...] below. ? Electronically signed by: Merari Collins [facility] ([phone]), at 12/05/2019 10:02 PM Narrative 12/05/2019 10:02 [...] Time Signature WBC 8.7 4.0 - 9.5 [facility] x10(3)/[facility] LABORATORY RBC 4.17 (L) 4.58 [facility] 5.54 [facility] x10(6)/[facility] LABORATORY Hemoglobin 12.4 (L) 13.7 - [facility] 16.5 gm/dL [facility] LAB[facility]ATORY Hematocrit 37.0 (L) 40.5 - [facility] 48.5 % [facility] HOSPITAL LABORATORY MCV 88.7 82.9 - [facility] 93.1 [facility] LABORATORY MCH 29.7 27.5 - [facility] 32.1 pg [facility] LABORATORY MCHC 33.5 32.0 - [facility] 35.7 gm/dL [facility] LABORATORY Platelets 173 145 - 357 [facility] x10(3)/[facility] LABORATORY RDWSD 47.3 (H) 36.0 - [facility] 45.0 [facility] LABORATORY RDWCV 14.6 (H) 11.4 - [facility] 13.8 % [facility] LABORATORY MPV 12.1 7.6 - 12.9 [facility] LABORATORY nRBC % Auto 0.0 % [facility] LABORATORY nRBC Abs Auto 0.000 0.000 - [facility] 0.000 [facility] x10(3)/[facility] LABORATORY Specimen Anatomical Collection Method Collection Time Receive d Time (Source) Location / / Volume Laterality Blood specimen 12/05/2019 1:00 PM 020 1:13 (specimen) EDT PM EDT Resulting Agency Comment Spec In Lab Gretchen Yoon MD HEMATOLOGY ORDERABLES Performing Organization Address City/State/[place] [address] EKG 12 Lead (12/05/2019 10:52 AM EDT) Component Value Ref Range Test Analysis Performed Pathologis t Method Time At Signature Ventricular rate 72 BPM MUSE SYSTEM Atrial Rate 72 BPM MUSE SYSTEM P-R Interval 138 ms MUSE SYSTEM QRS Duration 96 ms MUSE SYSTEM Q-T Interval 396 ms MUSE SYSTEM QTC Calculated 433 ms MUSE SYSTEM (Bezet) Calculated P [place] 65 degrees MUSE SYSTEM Calculated R [place] 13 degrees MUSE SYSTEM Calculated T [place] 0 degrees MUSE SYSTEM INTERPRETATION Sinus rhythm Occasional Premature ventricular complexe s MUSE SYSTEM Possible Inferior infarct (cited on or before 29-NOV-2019) Abnormal ECG When compared with ECG of 04-DEC-2019 10:43, Sinus rhythm has replaced Atrial fibrillation Vent. rate has decreased BY ??86 BPM Confirmed by MD Ceja Daniel ([id number]) on 12/05/2019 3:55:22 PM Specimen Anatomical Collection Method Collection Time Receive d Time (Source) Location / / Volume Laterality 12/05/2019 10:52 12/05/2019 3:55 AM EDT PM EDT Paris Lagos MD ECG ORDERABLES Performing Organization Address City/State/ZIP Code Phon e Number MUSE SYSTEM Duplex Study for DVT, Bilat legs (12/05/2019 7:00 AM EDT) Component Value Ref Test Analysis Performed At [facility] Range Method Time Signature VB Text Department: Vascular Surgery Lab VASCUBASE Report Patient: [id number] (ANGEL LUIS SALINAS) CPT: 60624 ICD10: I26.99 Referring Physician: GRETCHEN YOON ?? [...] athologist Signature Magnesium 0.87 0.69 - 1.07 [facility] mmol/L [facility] LABORATORY Specimen Anatomical Collection Method Collection Time Receive d Time (Source) Location / / Volume Laterality Blood specimen 12/05/2019 4:18 AM 020 4:31 (specimen) EDT AM EDT Resulting Agency Comment Spec In Lab Gretchen Yoon MD CHEMISTRY ORDERABLES Performing Organization Address City/[facility]/ZIP [facility] [place] [address] (ABNORMAL) BMP w/fasting Glucose (12/05/2019 4:18 AM EDT) P athologist Signature Glucose 104 (H) 65 - 99 [facility] Fasting mg/dL [facility] LABORATORY Comment: ?Fasting* Glucose Interpretive [...] of Diabetes Mellitus, Position Statement from the [place] [employer]. ??Diabete s Care, Volume 33, Supplement 1, Jul 2009 BUN 21 (H) 10 - 20 mg/dL [facility] LABORATORY Creatinine 1.02 0.80 - 1.50 mg/dL [facility] LABORATORY Sodium 136 135 - [...] estions. Chloride 103 98 - 107 mmol/L [facility] LABORATORY CO2 21 (L) 22 - 31 mmol/L [facility] LABORATORY Anion Gap 12 5 - 15 mmol/L [facility] LABORATORY Calcium 8.8 8.5 - 10.5 mg/dL [facility] LABORATORY Estimated GFR 73 >=60 mL/min/1.73 m?? [facility] LABORATORY Comment: The eGFR was calculated using the CKD-EP I equation. As with all creatinine based estimates of kidney function, eGFR values calculated with the CKD-EPI equation are not accurate in patients wi th acute kidney failure, extremes of body mass or the acutely ill. [email or web address] eGFR 84 >=60 mL/min/1.73 m?? [facility] LABORATORY Comment: The eGFR was calculated using the CKD-EP I equation. As with all creatinine based estimates of kidney function, eGFR values calculated with the CKD-EPI equation are not accurate in patients wi th acute kidney failure, extremes of body mass or the acutely ill. [email or web address] Specimen Anatomical Collection Method Collection Time Receive d Time (Source) Location / / Volume Laterality Blood specimen 12/05/2019 4:18 AM 020 4:31 (specimen) EDT AM EDT Resulting Agency Comment Spec In Lab Gretchen Yono MD CHEMISTRY ORDERABLES Performing Organization Address City/State/[place] [address] (ABNORMAL) Hemogram (12/05/2019 4:18 AM EDT) Analysis Performed At Patho logist Time Signature WBC 8.6 4.0 - 9.5 [facility] x10(3)/[facility] LABORATORY RBC 4.28 (L) 4.58 - [facility] D[facility] 5.54 [facility] x10(6)/[facility] LABORATORY Hemoglobin 12.4 (L) 13.7 - [facility] 16.5 gm/dL [facility] LABORATORY Hematocrit 37.3 (L) 40.5 - [facility] 48.5 % [facility] LABORATORY MCV 87.1 82.9 - [facility] 93.1 [facility] LABORATORY MCH 29.0 27.5 - [facility] 32.1 pg [facility] LABORATORY MCHC 33.2 32.0 - [facility] 35.7 gm/dL [facility] LABORATORY Platelets 163 145 - 357 [facility] x10(3)/[facility] LABORATORY RDWSD 46.4 (H) 36.0 - [facility] 45.0 [facility] LABORATORY RDWCV 14.4 (H) 11.4 - [facility] 13.8 % [facility] LABORATORY MPV 11.7 7.6 - 12.9 [facility] LABORATORY nRBC % Auto 0.0 % [facility] LABORATORY nRBC Abs Auto 0.000 0.000 - [facility] 0.000 [facility] x10(3)/[facility] LABORATORY Specimen Anatomical Collection Method Collection Time Receive d Time (Source) Location / / Volume Laterality Blood specimen 12/05/2019 4:18 AM 020 4:31 (specimen) EDT AM EDT Resulting Agency Comment Spec In Lab Gretchen Yoon MD HEMATOLOGY ORDERABLES Performing Organization Address City/State/[place] [address] Cardiac for Morphology [...] For questions regarding this report, please contact [facility] number below. ? Electronically signed by: Roselyn Luciano, [facility] ([phone]), at 12/04/2019 6:16 PM Narrative 12/04/2019 6:16 [...] from neck/greatest puja meter to back wall: GUAMANIAN 91, CAU 13: ??19 mm CORTES ??1, [...] from neck/greatest puja meter to back wall: GUAMANIAN 91, CAU 13: 19 mm CORTES 1, [...] WBC 8.9 4.0 - 9.5 [facility] D[facility] x10(3)/[facility] LABORATORY RBC 4.69 4.58 - [place] D[facility] 5.54 [facility] x10(6)/[facility] LABORATORY Hemoglobin 13.5 (L) 13.7 - [facility] 16.5 gm/dL [facility] LABORATORY Hematocrit 41.7 40.5 - [facility] 48.5 % [facility] LABORATORY MCV 88.9 82.9 - [facility] 93.1 fL [facility] LABORATORY MCH 28.8 27.5 - [facility] 32.1 pg [facility] LABORATORY MCHC 32.4 32.0 - [facility] 35.7 gm/dL [facility] LABORATORY Platelets 196 145 - 357 [facility] x10(3)/[facility] LABORATORY RDWSD 46.7 (H) 36.0 - [facility] MONAE 45.0 [facility] LABORATORY RDWCV 14.5 (H) 11.4 - [facility] MONAE 13.8 % [facility] LABORATORY MPV 12.1 7.6 - 12.9 [facility] MONAE [facility] LABORATORY nRBC % Auto 0.0 % [facility] LABORATORY nRBC Abs Auto 0.000 0.000 - [place] MONAE 0.000 [facility] x10(3)/[facility] LABORATORY Specimen Anatomical Collection Method Collection Time Receive d Time (Source) Location / / Volume Laterality Blood specimen 12/04/2019 12:55 0 1:06 (specimen) PM EDT PM EDT Resulting Agency Comment Spec In Lab Gretchen Yoon MD HEMATOLOGY ORDERABLES Performing Organization Address City/[facility]/[place]IP [place] [address] EKG 12 Lead (12/04/2019 10:43 AM EDT) Component Value Ref Range Test Analysis Performed Pathologis t Method Time At Signature Ventricular rate 158 BPM MUSE SYSTEM Atrial Rate 102 BPM MUSE SYSTEM QRS Duration 92 ms MUSE SYSTEM Q-T Interval 294 ms MUSE SYSTEM QTC Calculated 476 ms MUSE SYSTEM (Bezet) Calculated R Lancaster 17 degrees MUSE SYSTEM Calculated T [place] 90 degrees MUSE SYSTEM INTERPRETATION Atrial fibrillation with rapid ventricular response MUSE SYSTEM Possible Inferior infarct (cited on or before 29-NOV-2019) Abnormal ECG When compared with ECG of 30-NOV-2019 21:07, Atrial fibrillation has replaced Sinus rhythm Vent. rate has increased BY ??65 BPM Confirmed by MD Brenna, Faustino ([id number]) on 12/05/2019 8:59:44 AM Specimen Anatomical Collection Method Collection Time Receive d Time (Source) Location / / Volume Laterality 12/04/2019 10:43 12/05/2019 8:59 AM EDT AM EDT Gretchne Yoon MD ECG ORDERABLES Performing Organization Address City/State/ZIP Code Phon e Number MUSE SYSTEM (ABNORMAL) Magnesium (12/04/2019 4:28 AM EDT) P athologist Signature Magnesium 1.17 (H) 0.69 - 1.07 [facility] mmol/L [facility] LABORATORY Specimen Anatomical Collection Method Collection Time Receive d Time (Source) Location / / Volume Laterality Blood specimen 12/04/2019 4:28 AM 020 4:40 (specimen) EDT AM EDT Resulting Agency Comment Spec In Lab Gretchen Yoon MD CHEMISTRY ORDERABLES Performing Organization Address City/State/[place] [address] (ABNORMAL) BMP w/fasting Glucose (12/04/2019 4:28 AM EDT) athologist Signature Glucose 108 (H) 65 - 99 [facility] Fasting mg/dL [facility] LABORATORY Comment: ?Fasting* Glucose Interpretive [...] of Diabetes Mellitus, Position Statement from the [place] [employer]. ??Diabete s Care, Volume 33, Supplement 1, Jul 2009 BUN 19 10 - 20 mg/dL [facility] LABORATORY Creatinine 0.89 0.80 - 1.50 mg/dL [facility] LABORATORY Sodium 135 135 - [...] estions. Chloride 104 98 - 107 mmol/L [facility] LABORATORY CO2 19 (L) 22 - 31 mmol/L [facility] LABORATORY Anion Gap 12 5 - 15 mmol/L [facility] LABORATORY Calcium 8.5 8.5 - 10.5 mg/dL [facility] LABORATORY Estimated GFR 85 >=60 mL/min/1.73 m?? [facility] LABORATORY Comment: The eGFR was calculated using the CKD-EP I equation. As with all creatinine based estimates of kidney function, eGFR values calculated with the CKD-EPI equation are not accurate in patients wi th acute kidney failure, extremes of body mass or the acutely ill. [email or web address] CITY[facility] eGFR 98 >=60 mL/min/1.73 m?? [facility] LABORATORY Comment: The eGFR was calculated using the CKD-EP I equation. As with all creatinine based estimates of kidney function, eGFR values calculated with the CKD-EPI equation are not accurate in patients wi th acute kidney failure, extremes of body mass or the acutely ill. [email or web address] CITY[facility]f Specimen Anatomical Collection Method Collection Time Receive d Time (Source) Location / / Volume Laterality Blood specimen 12/04/2019 4:28 AM 020 4:40 (specimen) EDT AM EDT Resulting Agency Comment Spec In Lab Gretchen Yoon MD CHEMISTRY ORDERABLES Performing Organization Address City/State/[place] [address] (ABNORMAL) Hemogram (12/04/2019 4:28 AM EDT) Analysis Performed At Patho logist Time Signature WBC 7.8 4.0 - 9.5 [facility] x10(3)/[facility] LABORATORY RBC 4.10 (L) 4.58 - [facility] 5.54 [facility] x10(6)/[facility] LABORATORY Hemoglobin 12.0 (L) 13.7 - [facility] 16.5 gm/dL [facility] LABORATORY Hematocrit 36.5 (L) 40.5 - [facility] 48.5 % [facility] LABORATORY MCV 89.0 82.9 - [facility] 93.[facility] fL [facility] LABORATORY MCH 29.3 27.5 - [facility] MONAE 32.1 pg [facility] LABORATORY MCHC 32.9 32.0 - [facility] MONAE 35.7 gm/dL [facility] LABORATORY Platelets 151 145 - 357 [facility]AN[facility]ACK x10(3)/[facility] LABORATORY RDWSD 46.9 (H) 36.0 - [place] MONAE 45.0 [facility] LABORATORY RDWCV 14.4 (H) 11.4 - [place] MONAE 13.8 % [facility] LABORATORY MPV 12.2 7.6 - 12.9 [facility] fL [facility] LABORATORY nRBC % Auto 0.0 % [facility] LABORATORY nRBC Abs Auto 0.000 0.000 - [facility] MONAE 0.000 [facility] x10(3)/[facility] LABORATORY Specimen Anatomical Collection Method Collection Time Receive d Time (Source) Location / / Volume Laterality Blood specimen 12/04/2019 4:28 AM 020 4:40 (specimen) EDT AM EDT Resulting Agency Comment Spec In Lab Gretchen Yoon MD HEMATOLOGY ORDERABLES Performing Organization Address City/[facility]/ZIP Code Phon e Number [address] Potassium (12/03/2019 7:55 PM EDT) athologist Signature Potassium 3.9 3.5 - 5.0 [facility]/L [facility] LABORATORY Comment: Please note: ??Patients [...] Yoon MD CHEMISTRY ORDERABLES Performing Organization Address City/[facility]/ZIP [facility] Phon e Number [address] Potassium (12/03/2019 1:57 PM EDT) athologist Signature Potassium 3.7 3.5 - 5.0 [facility] mmol/L [facility] LABORATORY Comment: Please note: ??Patients [...] Organization Address City/State/[place] [address] (ABNORMAL) Hemogram (12/03/2019 1:57 PM EDT) Analysis Performed At Patho logist Time Signature WBC 8.8 4.0 - 9.5 [facility] x10(3)/[facility] LABORATORY RBC 4.27 (L) 4.58 - [place] D[facility] 5.54 [facility] x10(6)/[facility] LABORATORY Hemoglobin 12.5 (L) 13.7 - [facility] 16.5 gm/dL [facility] LABORATORY Hematocrit 37.5 (L) 40.5 - [facility] 48.5 % [facility] LABORATORY MCV 87.8 82.9 - [facility] [facility] 93.1 [facility] LABORATORY MCH 29.3 27.5 - [facility] 32.1 pg [facility] LABORATORY MCHC 33.3 32.0 - [facility] 35.7 gm/dL [facility] LABORATORY Platelets 158 145 - 357 [facility] x10(3)/[facility] LABORATORY RDWSD 46.9 (H) 36.0 - [facility] 45.0 [facility] LABORATORY RDWCV 14.5 (H) 11.4 - [facility] 13.8 % [facility] LABORATORY MPV 12.2 7.6 - 12.9 [facility] D[facility] LABORATORY nRBC % Auto 0.0 % [facility] LABORATORY nRBC Abs Auto 0.000 0.000 - [facility] x10(3)/[facility] LABORATORY Specimen Anatomical Collection Method Collection Time Receive d Time (Source) Location / / Volume Laterality Blood specimen 12/03/2019 1:57 PM 020 2:21 (specimen) EDT PM EDT Resulting Agency Comment Spec In Lab Gretchen Yoon MD HEMATOLOGY ORDERABLES Performing Organization Address City/State/ZIP Code Phon e Number [address] Magnesium (12/03/2019 4:02 AM EDT) P athologist Signature Magnesium 0.79 0.69 - 1.07 [facility] mmol/L [facility] LABORATORY Specimen Anatomical Collection Method Collection Time Receive d Time (Source) Location / / Volume Laterality Blood specimen 12/03/2019 4:02 AM 020 4:16 (specimen) EDT AM EDT Resulting Agency Comment Spec In Lab Gretchen Yoon MD CHEMISTRY ORDERABLES Performing Organization Address City/State/[place] [address] (ABNORMAL) BMP w/fasting Glucose (12/03/2019 4:02 AM EDT) P athologist Signature Glucose 100 (H) 65 - 99 [facility] Fasting mg/dL [facility] LABORATORY Comment: ?Fasting* Glucose Interpretive [...] of Diabetes Mellitus, Position Statement from the [place] [employer]. ??Diabete s Care, Volume 33, Supplement 1, Jul 2009 BUN 17 10 - 20 mg/dL [facility] LABORATORY Creatinine 0.95 0.80 - 1.50 mg/dL [facility] LABORATORY Sodium 136 135 - [...] estions. Chloride 103 98 - 107 mmol/L [facility] LABORATORY CO2 18 (L) 22 - 31 mmol/L [facility] LABORATORY Anion Gap 15 5 - 15 mmol/L [facility] LABORATORY Calcium 8.3 (L) 8.5 - 10.5 mg/dL [facility] LABORATORY Estimated GFR 79 >=60 mL/min/1.73 m?? [facility] LABORATORY Comment: The eGFR was calculated using the CKD-EP I equation. As with all creatinine based estimates of kidney function, eGFR values calculated with the CKD-EPI equation are not accurate in patients wi th acute kidney failure, extremes of body mass or the acutely ill. [email or web address] CITY[facility] eGFR 92 >=60 mL/min/1.73 m?? [facility] LABORATORY Comment: The eGFR was calculated using the CKD-EP I equation. As with all creatinine based estimates of kidney function, eGFR values calculated with the CKD-EPI equation are not accurate in patients wi th acute kidney failure, extremes of body mass or the acutely ill. [email or web address] Specimen Anatomical Collection Method Collection Time Receive d Time (Source) Location / / Volume Laterality Blood specimen 12/03/2019 4:02 AM 020 4:16 (specimen) EDT AM EDT Resulting Agency Comment Spec In Lab Gretchen Yoon MD CHEMISTRY ORDERABLES Performing Organization Address City/State/[place] [address] (ABNORMAL) Hemogram (12/03/2019 4:02 AM EDT) Analysis Performed At Patho logist Time Signature WBC 9.1 4.0 - 9.5 [facility] x10(3)/[facility] LABORATORY RBC 4.01 (L) 4.58 - [facility] MARSHDOV 5.54 [facility] x10(6)/[facility] LABORATORY Hemoglobin 11.8 (L) 13.7 - [facility] 16.5 gm/dL [facility] LABORATORY Hematocrit 35.6 (L) 40.5 - [facility] 48.5 % [facility] LABORATORY MCV 88.8 82.9 - [facility] 93.1 [facility] LABORATORY MCH 29.4 27.5 - [facility] 32.1 pg [facility] LABORATORY MCHC 33.1 32.0 - [facility] 35.[facility] gm/dL [facility] LABORATORY Platelets 130 (L) 145 - 357 [facility] x10(3)/[facility] LABORATORY RDWSD 46.6 (H) 36.0 - [facility] 45.0 [facility] LABORATORY RDWCV 14.4 (H) 11.4 - [facility] 13.8 % [facility] LABORATORY MPV 12.4 7.6 - 12.9 [facility] LABORATORY nRBC % Auto 0.0 % [facility] LABORATORY nRBC Abs Auto 0.000 0.000 - [facility] 0.000 [facility] x10(3)/[facility] LABORATORY Specimen Anatomical Collection Method Collection Time Receive d Time (Source) Location / / Volume Laterality Blood specimen 12/03/2019 4:02 AM 020 4:16 (specimen) EDT AM EDT Resulting Agency Comment Spec In Lab Gretchen Yoon MD HEMATOLOGY ORDERABLES Performing Organization Address City/State/[place] [address] XR Chest One View [...] below. ? Electronically signed by: Ashly Marley [facility] ([phone]), at 12/02/2019 1:35 PM Narrative 12/02/2019 1:35 [...] number below. Electronically signed by: Ashly Marley [facility] ([phone]), at 12/02/2019 1:35 PM Gretchen Yoon MD IMG DX ORDERABLES (ABNORMAL) Hemogram (12/02/2019 12:50 PM EDT) Analysis Performed At Patho logist Time Signature WBC 10.6 (H) 4.0 - 9.[address] [facility] x[facility](3)/[facility] LABORATORY RBC 4.00 (L) 4.58 - [facility] DOV 5.54 [facility] x10(6)/[facility] LABORATORY Hemoglobin 11.9 (L) 13.7 - [facility] 16.5 gm/dL [facility] LABORATORY Hematocrit 35.7 (L) 40.5 - [facility] 48.5 % [facility] LABORATORY MCV 89.3 82.9 - [facility] 93.1 [facility] LABORATORY MCH 29.8 27.5 - [facility] 32.1 pg [facility] LABORATORY MCHC 33.3 32.0 - [facility] 35.[facility] gm/dL [facility] LABORATORY Platelets 120 (L) 145 - 357 [facility] x10(3)/[facility] LABORATORY RDWSD 47.5 (H) 36.0 - [facility] 45.0 [facility] LABORATORY RDWCV 14.6 (H) 11.4 - [facility] 13.8 % [facility] LABORATORY MPV 12.0 7.6 - 12.9 [facility] LABORATORY nRBC % Auto 0.0 % [facility] LABORATORY nRBC Abs Auto 0.000 0.000 - [facility] 0.000 [facility] x10(3)/[facility] LABORATORY Specimen Anatomical Collection Method Collection Time Receive d Time (Source) Location / / Volume Laterality Blood specimen 12/02/2019 12:50 0 1:22 (specimen) PM EDT PM EDT Resulting Agency Comment Spec In Lab Gretchen Yoon MD HEMATOLOGY ORDERABLES Performing Organization Address City/State/[place] [address] Blue Tube HOLD (12/02/2019 4:55 AM EDT) P athologist Signature Blue Hold Sample in [facility] lab. [facility] LABORATORY Specimen Anatomical Collection Method Collection Time Receive d Time (Source) Location / / Volume Laterality Blood specimen Venous Draw / 12/02/2019 4:55 AM 2019 5:03 (specimen) Unknown EDT AM EDT Darrell Glasgow MD HEMATOLOGY ORDERABLES Performing Organization Address City/State/ZIP Code Phon e Number [address] Magnesium (12/02/2019 4:55 AM EDT) athologist Signature Magnesium 0.85 0.69 - 1.07 [facility] mmol/L [facility] LABORATORY Specimen Anatomical Collection Method Collection Time Receive d Time (Source) Location / / Volume Laterality Blood specimen 12/02/2019 4:55 AM 020 5:02 (specimen) EDT AM EDT Resulting Agency Comment Spec In Lab Gretchen Yoon MD CHEMISTRY ORDERABLES Performing Organization Address City/State/[place] [address] (ABNORMAL) BMP w/fasting Glucose (12/02/2019 4:55 AM EDT) athologist Signature Glucose 114 (H) 65 - 99 [facility] Fasting mg/dL [facility] LABORATORY Comment: ?Fasting* Glucose Interpretive [...] of Diabetes Mellitus, Position Statement from the [place] [employer]. ??Diabete s Care, Volume 33, Supplement 1, Jul 2009 BUN 13 10 - 20 mg/dL [facility] LABORATORY Creatinine 0.93 0.80 - 1.50 mg/dL [facility] LABORATORY Sodium 135 135 - [...] estions. Chloride 105 98 - 107 mmol/L [facility] LABORATORY CO2 18 (L) 22 - 31 mmol/L [facility] LABORATORY Anion Gap 12 5 - 15 mmol/L [facility] LABORATORY Calcium 8.1 (L) 8.5 - 10.5 mg/dL [facility] LABORATORY Estimated GFR 81 >=60 mL/min/1.73 m?? [facility] LABORATORY Comment: The eGFR was calculated using the CKD-EP I equation. As with all creatinine based estimates of kidney function, eGFR values calculated with the CKD-EPI equation are not accurate in patients wi th acute kidney failure, extremes of body mass or the acutely ill. [email or web address] eGFR 94 >=60 mL/min/1.73 m?? [facility] Comment: The eGFR was calculated using the CKD-EP I equation. As with all creatinine based estimates of kidney function, eGFR values calculated with the CKD-EPI equation are not accurate in patients wi th acute kidney failure, extremes of body mass or the acutely ill. [email or web address] Specimen Anatomical Collection Method Collection Time Receive d Time (Source) Location / / Volume Laterality Blood specimen 12/02/2019 4:55 AM 020 5:02 (specimen) EDT AM EDT Resulting Agency Comment Spec In Lab Gretchen Yoon MD CHEMISTRY ORDERABLES Performing Organization Address City/State/[place] [address] (ABNORMAL) Hemogram (12/02/2019 4:55 AM EDT) Analysis Performed At Patho logist Time Signature WBC 9.3 4.0 - 9.[address] [facility] x[facility](3[facility] LABORATORY RBC 3.71 (L) 4.58 - [place] DOV 5.54 [facility] x10(6)/[facility] LABORATORY Hemoglobin 10.8 (L) 13.7 - [facility] 16[facility] gm/dL [facility] Hematocrit 33.1 (L) 40.5 - [facility] 48.5 % [facility] MCV 89.2 82.9 - [facility] 93.1 [facility] LABORATORY MCH 29.1 27.5 - [facility] 32.1 pg [facility] MCHC 32.6 32.0 - [facility] 35.7 gm/dL [facility] Platelets 93 (L) 145 - 357 [facility] x10(3)/[facility] LABORATORY RDWSD 47.1 (H) 36.0 - [facility] 45.0 [facility] LABORATORY RDWCV 14.6 (H) 11.4 - [facility] 13.8 % [facility] MPV 11.7 7.6 - 12.9 [facility] LABORATORY nRBC % Auto 0.0 % [facility] nRBC Abs Auto 0.000 0.000 - [facility] 0[facility]000 [facility] x10(3)/[facility] LABORATORY Specimen Anatomical Collection Method Collection Time Receive d Time (Source) Location / / Volume Laterality Blood specimen 12/02/2019 4:55 AM 020 5:02 (specimen) EDT AM EDT Resulting Agency Comment Spec In Lab Gretchen Yoon MD HEMATOLOGY ORDERABLES Performing Organization Address City/State/[place] [address] Transfuse 1 unit platelets, [...] For questions regarding this report, please contact [facility] number below. ? Electronically signed by: Angel Luis Barboza MD, [facility] ([phone]), at 12/01/2019 8:02 PM Narrative 12/01/2019 8:02 [...] For questions regarding this report, please contact [facility] number below. Electronically signed by: Angel Luis Barboza MD, [facility] ([phone]), at 12/01/2019 8:02 PM Gretchen Yoon MD IMG MRI ORDERABLES Prepare Platelets, Apheresis (12/01/2019 6:20 PM EDT) P athologist Signature Dispensed? Yes [facility] Specimen Anatomical Collection Method Collection Time Receive d Time (Source) Location / / Volume Laterality Blood specimen 12/01/2019 6:20 PM 020 6:18 (specimen) EDT PM EDT Gretchen Yoon MD BLOOD BANK ORDERABLES Performing Organization Address City/[facility]/[place] [address] Duplex for DVT, Arm, Unilat (12/01/2019 5:08 PM EDT) Component Value Ref Test Analysis Performed At Patholo gist Range Method Time Signature VB Text Department: Vascular Surgery Lab VASCUBASE Report Patient: [id number] (ANGEL LUIS SALINAS) CPT: 43114 ICD10: R60.0 Referring Physician: GRETCHEN YOON ?? [...] For questions regarding this report, please contact [facility] number below. ? Electronically signed by: Merari Collins, [facility] ([phone]), at 12/01/2019 3:53 PM Narrative 12/01/2019 3:53 PM EDT EXAMINATION: CT HEAD WO CONTRAST (GENERIC) CLINICAL HISTORY: Headache, intracranial hemorrhage suspected Serial CT scan: please assess for propag ation of known ICH noted on prior Head CT/imaging. TECHNIQUE: CT head performed without intravenous co ntrast administration. COMPARISON: Head CT 11/30/2019. CT angiogram [place] 11/01. FINDINGS: Ventricles are normal [...] Head CT 11/30/2019. CT [facility]ogram [place] 11/01. FINDINGS: Ventricles are normal [...] Scan, Peripheral Blood (12/01/2019 12:51 PM EDT) [facility] Method Time Signature Plat Estimate Decreased [facility] RBC Morphology Normal [facility] [place] Giant Less than 1 /HPF [facility] Platelets [facility] Specimen Anatomical Collection Method Collection Time Receive d Time (Source) Location / / Volume Laterality Blood specimen 12/01/2019 12:51 0 1:05 (specimen) PM EDT PM EDT Resulting Agency Comment Spec In Lab Riki Stevens MD HEMATOLOGY ORDERABLES Performing Organization Address City/State/[place] [address] (ABNORMAL) Differential, Automated (12/01/2019 12:51 PM EDT) [facility] Method Time Signature Neutrophils % 74.9 % [facility] Neutr Abs (ANC) 6.34 (H) 1.70 - [facility] 6.10 [facility] x10(3)/[facility] LABORATORY Lymphocytes % 11.4 % [facility] Lymphocytes Abs 1.0 0.9 - 3.2 [facility] x10(3)/[facility] LABORATORY Monocytes % 12.4 % [facility] Monocyte Abs 1.0 (H) 0.3 - 0.9 [facility] x10(3)/[facility] LABORATORY Eosinophils % 0.4 % [facility] Eosinophils Abs 0.0 0.0 - 0.4 [facility] x10(3)/[facility] LABORATORY Basophils % 0.4 % [facility] Basophils Abs 0.0 0.0 - 0.1 [facility] x10(3)/[facility] LABORATORY Immature Gran % 0.50 % [facility] Comment: Immature granulocytes(IG's)percentage an d absolute count will include metamyelocytes, myelocytes, and promyelo cytes. Blood smears from CBCs yielding IG's will be scanned manually for ana nagy. If this scan disagrees with the automated IG or if promyelocytes are not ed, a manual differential will be performed. Pita Gran Abs 0.04 0.00 - 0.04 x10(3)/[facility] Specimen Anatomical Collection Method Collection Time Receive d Time (Source) Location / / Volume Laterality Blood specimen 12/01/2019 12:51 0 1:05 (specimen) PM EDT PM EDT Resulting Agency Comment Spec In Lab Riki Stevens MD HEMATOLOGY ORDERABLES Performing Organization Address City/State/ZIP Code Phon e Number [place] [id number] [address]OS[address] (ABNORMAL) Hemogram (12/01/2019 12:51 PM EDT) Analysis Performed At Patho logist Time Signature WBC 8.4 4.0 - 9.5 [facility] x[facility](3[facility] LABORATORY RBC 3.69 (L) 4.58 - [facility] 5.54 [facility] x10(6)/[facility] LABORATORY Hemoglobin 10.8 (L) 13.7 - [facility] 16.5 gm/dL [facility] Hematocrit 32.4 (L) 40.5 - [facility] 48.5 % [facility] MCV 87.8 82.9 - [facility] 93.1 [facility] LABORATORY MCH 29.3 27.5 - [place] DOV 32.1 pg [facility] MCHC 33.3 32.0 - [facility] DOV 35.7 gm/dL [facility] Platelets 72 (L) 145 - [address] [facility] x10(3)/[facility] LABORATORY RDWSD 47.2 (H) 36.0 - [facility] 45.0 [facility] LABORATORY RDWCV 14.6 (H) 11.4 - [facility] DOV 13.8 % [facility] MPV 12.2 7.6 - 12.9 [facility] LABORATORY nRBC % Auto 0.0 % [facility] nRBC Abs Auto 0.000 0.000 - [facility] 0.000 [facility] x10(3)/[facility] LABORATORY Specimen Anatomical Collection Method Collection Time Receive d Time (Source) Location / / Volume Laterality Blood specimen 12/01/2019 12:51 0 1:05 (specimen) PM EDT PM EDT Resulting Agency Comment Spec In Lab Riki Stevens MD HEMATOLOGY ORDERABLES Performing Organization Address City/State/ZIP Code Phon e Number [address] (ABNORMAL) Coox2 (12/01/2019 11:42 AM EDT) Analysis Performed At Patho logist Time Signature pO2 Coox [address] [facility] Hgb Blood Gas 11.6 (L) 13.7 - [facility] 16.5 gm/dL [facility] O2HB Coox 60.8 % [facility] COHB Coox 0.6 % [facility] Comment: Nonsmokers: 0.5-1.5% COHB Smokers: Variable, but usually less than 10% Toxic: 20-30% COHB Lethal: Greater than 60% COHB METHB Coox 0.6 <=1.5 % [facility] Source Coox Mixed Venous [facility] Specimen Anatomical Collection Method Collection Time Receive d Time (Source) Location / / Volume Laterality Blood specimen 12/01/2019 11:42 0 (specimen) AM EDT 11:42 AM EDT Gretchen Yoon MD CHEMISTRY ORDERABLES Performing Organization Address City/State/[place] [address] Sedimentation rate (12/01/2019 3:55 AM EDT) P athologist Signature Sed Rate 25 3 - 46 [facility] mm/hr [facility] Comment: Effective June 11, [...] Winn MD HEMATOLOGY ORDERABLES Performing Organization Address City/[facility]/[place] [address] (ABNORMAL) CRP, acute inflammation (12/01/2019 3:55 AM EDT) P athologist Signature CRP 92.5 (H) <=4.9 mg/L [facility] Specimen Anatomical Collection Method Collection Time Receive d Time (Source) Location / / Volume Laterality Blood specimen Venous Draw / 12/01/2019 3:55 AM 2019 4:06 (specimen) Unknown EDT AM EDT Resulting Agency Comment Spec In Lab Rossy Winn MD CHEMISTRY ORDERABLES Performing Organization Address City/[facility]/ZIP Code Phon e Number [address] ABORH Recheck Status (12/01/2019 3:55 AM EDT) [facility] Method Time Signature ABORH Recheck Order Placed [facility] LABORATORY ABORH Type Complete [facility] LABORATORY Specimen Anatomical Collection Method Collection Time Receive d Time (Source) Location / / Volume Laterality Blood specimen 12/01/2019 3:55 AM 020 4:15 (specimen) EDT AM EDT Resulting Agency Comment Spec In Lab Lewis Gee MD BLOOD BANK ORDERABLES Performing Organization Address City/[facility]/[place] [address] Antibody screen (12/01/2019 3:55 AM EDT) Patholo gist Method Time Signature Ab Screen Negative [facility] LABORATORY Expires at 12/04/2019 [facility] [id number] on: [facility] Specimen Anatomical Collection Method Collection Time Receive d Time (Source) Location / / Volume Laterality Blood specimen 12/01/2019 3:55 AM 020 4:15 (specimen) EDT AM EDT Resulting Agency Comment Spec In Lab Lewis Gee MD BLOOD BANK ORDERABLES Performing Organization Address City/State/[place] [address] ABO/Rh Typing (12/01/2019 3:55 AM EDT) athologist Signature ABORh Type AB Pos [facility] Specimen Anatomical Collection Method Collection Time Receive d Time (Source) Location / / Volume Laterality Blood specimen 12/01/2019 3:55 AM 020 4:15 (specimen) EDT AM EDT Resulting Agency Comment Spec In Lab Lewis Gee MD BLOOD BANK ORDERABLES Performing Organization Address City/[facility] [place] [address] (ABNORMAL) Troponin (12/01/2019 3:55 AM EDT) athologist Signature Troponin-T 4.35 (H) 0.00 - [facility] 0.00 ng/mL [facility] Comment: result rechecked-slw The 99th percentile for Troponin T is le ss than 0.01 ng/mL, any detectable cTnT concentration using this assay should be considered elevated. According to the third universal definit ion of myocardial infarction the following criteria with a clinical prese ntation consistent with acute myocardial ischemia meets the diagnosis for a myocardial infarction ([place]). Detection of a rise and/or fall of [...] additional sample may be indicated. Reference: Third Apex Definition of Myocardial Infarction. Journal of the [place] [employer] 2012;60:1581-98 Specimen Anatomical Collection Method Collection Time Receive d Time (Source) Location / / Volume Laterality Blood specimen 12/01/2019 3:55 AM 020 4:00 (specimen) EDT AM EDT Resulting Agency Comment Spec In Lab Gretchen Yoon MD CHEMISTRY ORDERABLES Performing Organization Address City/State/ZIP Code Phon e Number [address] Magnesium (12/01/2019 3:55 AM EDT) P athologist Signature Magnesium 0.96 0.69 - 1.07 [facility] mmol/L [facility] Specimen Anatomical Collection Method Collection Time Receive d Time (Source) Location / / Volume Laterality Blood specimen 12/01/2019 3:55 AM 020 4:00 (specimen) EDT AM EDT Resulting Agency Comment Spec In Lab Gretchen Yoon MD CHEMISTRY ORDERABLES Performing Organization Address City/[facility]/[place] [address] (ABNORMAL) BMP w/fasting Glucose (12/01/2019 3:55 AM EDT) P athologist Signature Glucose 148 (H) 65 - 99 [facility] Fasting mg/dL [facility] Comment: ?Fasting* Glucose Interpretive [...] of Diabetes Mellitus, Position Statement from the [place] [employer]. ??Diabete s Care, Volume 33, Supplement 1, Jul 2009 BUN 11 10 - 20 mg/dL [facility] Creatinine 0.96 0.80 - 1.50 mg/dL [facility] Sodium 132 (L) 135 [...] estions. Chloride 105 98 - 107 mmol/L [facility] CO2 17 (L) 22 - 31 mmol/L [facility] Anion Gap 10 5 - 15 mmol/L [facility] Calcium 7.6 (L) 8.5 - 10.5 mg/dL [facility] Estimated GFR 78 >=60 mL/min/1.73 m?? [facility] Comment: The eGFR was calculated using the CKD-EP I equation. As with all creatinine based estimates of kidney function, eGFR values calculated with the CKD-EPI equation are not accurate in patients wi th acute kidney failure, extremes of body mass or the acutely ill. [email or web address] CITYnkf eGFR 91 >=60 mL/min/1.73 m?? [facility] Comment: The eGFR was calculated using the CKD-EP I equation. As with all creatinine based estimates of kidney function, eGFR values calculated with the CKD-EPI equation are not accurate in patients wi th acute kidney failure, extremes of body mass or the acutely ill. [email or web address] Specimen Anatomical Collection Method Collection Time Receive d Time (Source) Location / / Volume Laterality Blood specimen 12/01/2019 3:55 AM 020 4:00 (specimen) EDT AM EDT Resulting Agency Comment Spec In Lab Gretchen Yoon MD CHEMISTRY ORDERABLES Performing Organization Address City/State/[place] [address] (ABNORMAL) Hemogram (12/01/2019 3:55 AM EDT) Analysis Performed At Patho [facility] Time Signature WBC 11.0 (H) 4.0 - 9.5 [facility] x10(3)/[facility] LABORATORY RBC 3.46 (L) 4.58 - [facility] 5.54 [facility] x10(6)/[facility] LABORATORY Hemoglobin 10.2 (L) 13.7 [facility] 16.5 gm/dL [facility] Hematocrit 31.2 (L) 40.5 - [facility] 48.5 % [facility] MCV 90.2 82.9 - [facility] 93.1 [facility] LABORATORY MCH 29.5 27.5 - [facility] 32.1 pg [facility] MCHC 32.7 32.0 - [facility] 35.7 gm/dL [facility] Platelets 98 (L) 145 - 357 [facility] x10(3)/[facility] LABORATORY RDWSD 47.9 (H) 36.0 - [facility] 45.0 [facility] LABORATORY RDWCV 14.6 (H) 11.4 - [facility] 13.8 % [facility] MPV 12.3 7.6 - 12.9 [facility] LABORATORY nRBC % Auto 0.0 % [facility] nRBC Abs Auto 0.000 0.000 - [facility] 0.000 [facility] x10(3)/[facility] LABORATORY Specimen Anatomical Collection Method Collection Time Receive d Time (Source) Location / / Volume Laterality Blood specimen 12/01/2019 3:55 AM 020 4:00 (specimen) EDT AM EDT Resulting Agency Comment Spec In Lab Gretchen Yoon MD HEMATOLOGY ORDERABLES Performing Organization Address City/State/[place] [address] (ABNORMAL) BLOOD GAS 2 ARTERIAL (11/30/2019 10:39 PM EDT) Analysis Performed At [facility] Time Signature pH Art 7.45 7.35 - [facility] 7.45 [facility] pCO2 Art 23 (L) 35 - 45 [facility] LABORATORY pO2 Art 76 (L) 85 - 104 [facility] LABORATORY HCO3 Art 15.3 (L) 20.0 - [facility] 26.0 [facility] mmol/[facility] LABORATORY BE Art -8.7 (L) -3.0 - 3.0 [facility] mmol/L [facility] Hgb Blood Gas 11.7 (L) 13.7 - [facility] 16.5 gm/dL [facility] O2HB Art 94.2 94.0 - [facility] 97.0 % [facility] COHB Art 0.5 % [facility] Comment: Nonsmokers: 0.5-1.5% COHB Smokers: Variable, but usually less than 10% Toxic: 20-30% COHB Lethal: Greater than 60% COHB METHB Art 0.6 <=1.5 % [facility] Na Whole Blood 133 (L) 135 - 145 mmol/L [facility] K Whole Blood 3.8 3.5 - 5.0 mmol/L [facility] Comment: Please note: Patients with WBC >100,000 may have falsely elevated Potassium levels. Contact the Clinical Chemistry L aboratory if there are any questions. ICa Whole Blood 1.10 (L) 1.15 - 1.33 mmol/L [facility] Comment: Note: ??Total bilirubin higher than 20 m g/dL may lead to falsely low ionized calcium. CL Whole Blood 109 (H) 98 - 107 mmol/L [facility] Gluc Whole Bld 120 65 - 199 mg/dL [facility] Comment: Diabetes: >=200 mg/dL plus symp toms. Lactate WB 0.8 0.5 - 2.2 mmol/L [facility] FIO2 Art 100 % [facility] PF Ratio Art 76 [facility]ORY Specimen Anatomical Collection Method Collection Time Receive d Time (Source) Location / / Volume Laterality Blood specimen 11/30/2019 10:39 0 (specimen) PM EDT 10:39 PM EDT Gretchen Yoon MD CHEMISTRY ORDERABLES Performing Organization Address City/State/[place] [address] EKG 12 Lead (11/30/2019 [...] (Bezet) Calculated P 12 degrees [facility] [place] Calculated R 19 degrees [facility] [place] Calculated T -47 degrees [facility] [place] INTERPRETATION Sinus rhythm with Premature supraventricular complexes [...] Yoon MD ECG ORDERABLES Performing Organization Address City/[facility]/ZIP Code Phon e Number MUSE SYSTEM (ABNORMAL) Urinalysis Microscopic Exam (11/30/2019 8:40 PM EDT) P athologist Signature RBC UA 27 (H) 0 - 3 /HPF [facility] WBC UA 4 (H) 0 - 3 /HPF [facility] Hyaline Cast 3 (H) 0 - 2 /LPF [facility]ORY Specimen (Source) Anatomical Collection Method Collection Time Re ceived Time Location / / Volume Laterality Urine specimen 11/30/2019 8:40 11/30/2019 obtained via PM EDT 10:51 PM EDT indwelling urinary catheter (specimen) Resulting Agency Comment Spec In Lab Rossy Winn MD URINE ORDERABLES Performing Organization Address City/[facility]/ZIP Code Phon e Number [place] [id number]OS[address] Drive (ABNORMAL) Urinalysis with reflex Culture (11/30/2019 8:40 PM EDT) Patholo gist Method Time Signature Glucose UA Negative Negative [facility] mg/dL [facility] Protein UA Negative Negative [facility] mg/dL [facility] Bilirubin UA Negative Negative [facility] mg/dL [facility] Comment: Clinical correlation required for positi ve Urine Bilirubin results as false positive may occur with some drugs and d rug related products. If a false positive is suspected a serum total bili morales should be considered if clinically indicated. Urobilinogen UA Normal Normal mg/dL [facility] pH UA 5.5 5.0 - 8.0 [facility] Blood UA Moderate (A) Negative mg/dL [facility] Ketones UA 40 (A) Negative mg/dL [facility] Nitrite UA Negative Negative [facility] Leukocytes UA Trace (A) Negative [facility] LABORATORY Appearance UA Clear Clear [facility] Spec [place] UA 1.026 1.006 - 1.030 [facility] Color UA Yellow Yellow [facility]ORY Culture Reflexed No [facility] Specimen (Source) Anatomical Collection Method Collection Time Re ceived Time Location / / Volume Laterality Urine specimen 11/30/2019 8:40 11/30/2019 obtained via PM EDT 10:51 PM EDT indwelling urinary catheter (specimen) Resulting Agency Comment Spec In Lab Gretchen Yoon MD URINE ORDERABLES Performing Organization Address City/State/[place] [address] (ABNORMAL) pro-Brain Natriuretic Peptide (11/30/2019 8:30 PM EDT) P athologist Signature ProBNP 2,802 (H) <=[address] [facility] pg/mL [facility] Specimen Anatomical Collection Method Collection Time Receive d Time (Source) Location / / Volume Laterality Blood specimen Venous Draw / 11/30/2019 8:30 PM 2019 8:36 (specimen) Unknown EDT PM EDT Resulting Agency Comment Spec In Lab Rossy Winn MD CHEMISTRY ORDERABLES Performing Organization Address City/State/ZIP Code Phon e Number [place] [id number] (ABNORMAL) Troponin (11/30/2019 8:30 PM EDT) athologist Signature Troponin-T 5.04 (H) 0.00 - [place] 0.00 ng/mL [facility] Comment: The 99th percentile for Troponin T is le ss than 0.01 ng/mL, any detectable cTnT concentration using this assay should be considered elevated. According to the third universal definit ion of myocardial infarction the following criteria with a clinical prese ntation consistent with acute myocardial ischemia meets the diagnosis for a myocardial infarction ([place]). Detection of a rise and/or fall of [...] additional sample may be indicated. Reference: Third Apex Definition of Myocardial Infarction. Journal of the [place] [employer] 2012;60:1581-98 Specimen Anatomical Collection Method Collection Time Receive d Time (Source) Location / / Volume Laterality Blood specimen Venous Draw / 11/30/2019 8:30 PM 2019 8:36 (specimen) Unknown EDT PM EDT Resulting Agency Comment Spec In Lab Rossy Winn MD CHEMISTRY ORDERABLES Performing Organization Address City/State/[place] [address] Magnesium (11/30/2019 8:30 PM EDT) athologist Signature Magnesium 0.79 0.69 - 1.07 [facility] Specimen Anatomical Collection Method Collection Time Receive d Time (Source) Location / / Volume Laterality Blood specimen 11/30/2019 8:30 PM 020 8:35 (specimen) EDT PM EDT Resulting Agency Comment Spec In Lab Gretchen Yoon MD CHEMISTRY ORDERABLES Performing Organization Address City/State/[place] [address] (ABNORMAL) Basic Metabolic Panel (non-fasting) (11/30/2019 8:30 PM EDT) athologist Signature Glucose Lvl 132 65 - 199 [facility] mg/dL [facility] Comment: Diabetes: >=200 mg/dL plus symp toms BUN 12 10 - 20 mg/dL [facility] Creatinine 0.94 0.80 - 1.50 mg/dL [facility] Sodium 136 135 - [...] Chloride 108 (H) 98 - 107 mmol/L [facility] CO2 17 (L) 22 - 31 mmol/L [facility] Anion Gap 11 5 - 15 mmol/L [facility] Calcium 7.9 (L) 8.5 - 10.5 mg/dL [facility]OR[facility] Estimated GFR 80 >=60 mL/min/1.73 m?? [facility] Comment: The eGFR was calculated using the CKD-EP I equation. As with all creatinine based estimates of kidney function, eGFR values calculated with the CKD-EPI equation are not accurate in patients wi th acute kidney failure, extremes of body mass or the acutely ill. [email or web address] eGFR 93 >=60 mL/min/1.73 m?? [facility] Comment: The eGFR was calculated using the CKD-EP I equation. As with all creatinine based estimates of kidney function, eGFR values calculated with the CKD-EPI equation are not accurate in patients wi th acute kidney failure, extremes of body mass or the acutely ill. [email or web address] Specimen Anatomical Collection Method Collection Time Receive d Time (Source) Location / / Volume Laterality Blood specimen 11/30/2019 8:30 PM 020 8:35 (specimen) EDT PM EDT Resulting Agency Comment Spec In Lab Gretchen Yoon MD CHEMISTRY ORDERABLES Performing Organization Address [facility] Phon e Number [address] Blood culture (11/30/2019 8:30 PM EDT) Patholo gist Method Time Signature Blood Culture No growth MELINA MONAE at 5 days. [facility] Specimen Anatomical Collection Method Collection Time Receive d Time (Source) Location / / Volume Laterality Blood specimen 11/30/2019 8:30 PM 020 9:40 (specimen) EDT PM EDT Comment: L HAND Resulting Agency Comment Spec In Lab Gretchen Yoon MD MICROBIOLOGY - BLOOD ORDERAB LES Performing Organization Address City/[facility] [place] [address] Blood culture (11/30/2019 8:30 PM EDT) Patholo gist Method Time Signature Blood Culture No growth MELINA MONAE at 5 days. [facility] Specimen Anatomical Collection Method Collection Time Receive d Time (Source) Location / / Volume Laterality Blood specimen 11/30/2019 8:30 PM 020 9:40 (specimen) EDT PM EDT Comment: R HAND Resulting Agency Comment Spec In Lab Gretchen Yoon MD MICROBIOLOGY - BLOOD ORDERAB LES Performing Organization Address [facility] Phon e Number [address] XR Chest One View [...] Time Signature pH Art 7.45 7.35 - [facility] 7.45 [facility] pCO2 Art 27 (L) 35 - 45 [facility] mmHg [facility] LABORATORY pO2 Art 68 (L) 85 - 104 [facility] LABORATORY HCO3 Art 18.2 (L) 20.0 - [facility] 26.0 [facility] mmol/[facility] LABORATORY BE Art -5.9 (L) -3.0 - 3.0 [facility] mmol/L [facility] Hgb Blood Gas 12.4 (L) 13.7 - [facility] 16.5 gm/dL [facility] O2HB Art 93.1 (L) 94.0 - [facility] 97.0 % [facility] COHB Art 0.8 % [facility] Comment: Nonsmokers: 0.5-1.5% COHB Smokers: Variable, but usually less than 10% Toxic: 20-30% COHB Lethal: Greater than 60% COHB METHB Art 0.4 <=1.5 % [facility] LABORATORY Na Whole Blood 133 (L) 135 - 145 mmol/L [facility] K Whole Blood 3.6 3.5 - 5.0 mmol/L [facility] LAB[facility] Comment: Please note: Patients with WBC >100,000 may have falsely elevated Potassium levels. Contact the Clinical Chemistry L aboratory if there are any questions. ICa Whole Blood 1.13 (L) 1.15 - 1.33 mmol/L [facility] Comment: Note: ??Total bilirubin higher than 20 m g/dL may lead to falsely low ionized calcium. CL Whole Blood 108 (H) 98 - 107 mmol/L [facility] LABORATORY Gluc Whole Bld 121 65 - 199 mg/dL [facility] LABOR[facility] Comment: Diabetes: >=200 mg/dL plus symp toms. Lactate WB 1.2 0.5 - 2.2 mmol/L [facility] Flow Art 5.0 LPM [facility] LABORATORY Specimen Anatomical Collection Method Collection Time Receive d Time (Source) Location / / Volume Laterality Blood specimen 11/30/2019 8:09 PM 020 8:09 (specimen) EDT PM EDT Gretchen Yoon MD CHEMISTRY ORDERABLES Performing Organization Address City/State/ZIP Code Phon e Number [place] [id number]OS[address] LAB[address] CT Angiogram [place] (11/30/2019 4:36 PM EDT) Anatomical [...] CT HEAD WO CONTRAST (GENERIC), CT ANGIOGRAM [place] CLINICAL HISTORY: Headache, intracranial hemorrhage suspected F/U on known ICH - assessing for propaga tion TECHNIQUE: CT head performed without intravenous co ntrast administration. CT angiogram [place] 65 cc Omnipaque 350 administered [...] HEAD WO CONTRAST (GENERI C), CT ANGIOGRAM [place] CLINICAL HISTORY: Headache, intracranial hemorrhage suspected F/U on known ICH - assessing for propaga tion TECHNIQUE: CT head performed without intravenous co ntrast administration. CT angiogram [place] 65 cc Omnipaque 350 administered [...] CT HEAD WO CONTRAST (GENERIC), CT ANGIOGRAM [place] CLINICAL HISTORY: Headache, intracranial hemorrhage suspected F/U on known ICH - assessing for propaga tion TECHNIQUE: CT head performed without intravenous co ntrast administration. CT angiogram [place] 65 cc Omnipaque 350 administered [...] HEAD WO CONTRAST (GENERI C), CT ANGIOGRAM [place] CLINICAL HISTORY: Headache, intracranial hemorrhage suspected F/U on known ICH - assessing for propaga tion TECHNIQUE: CT head performed without intravenous co ntrast administration. CT angiogram [place] 65 cc Omnipaque 350 administered [...] Electronically signed by: Angel Luis Barboza MD, [facility] ([phone]), at 11/30/2019 5:04 PM Gretchen Yoon MD [...] 453 ms MUSE SYSTEM (Bezet) Calculated P [place] 52 degrees MUSE SYSTEM Calculated R [place] 5 degrees MUSE SYSTEM Calculated T [place] -60 degrees MUSE SYSTEM INTERPRETATION Sinus rhythm [...] [place] ? (Age): 1945(74y) Med Rec#: ? [id number] ?Sex: ?M ? Site Loc: ? [facility] ?Ht / Wt: ??178(cm)/64(kg) Pt. Loc: ?CCU ? BSA: ?1.8 Study Date: ?? 11/30/2019 ?Pt. Type: Inpatient Tape: ? Referring: GILMER Reading: Tello Mejia ([id number]) Hazardous Waste Material Technician: Friend, Lolita Diagnosis: *ST elevation (STEMI) [...] Vmax ?0.58 ? m/sec ? MV deceleration [id number] ? m sec ? MV A-wave Vmax [...] ? Mid-Inferior ?Akinetic ? Mid-Inferoseptal ?Normal ? [place]-Septal ? Normal ? [place]-Anterior ? Normal ? [place]-Lateral ?Normal ? [place]-Inferior ? Hypokinetic ? [place]-Tip ?Normal ? This report has been electronically sign ed by: _ Tello Mejia MD ? 11/30/2019 12: 45:27 Images reviewed and interpretation [facility] Procedure Note Tello Mejia MD - 11/30/2019Formatti ng of this note might be different from the original. Procedure: Transthoracic Echocardiogram Patient: RITA ACOSTA(Age): [birth year](74y) Med Rec#: [id number] Sex: M Site Loc: [facility] Ht / Wt: 178(cm)/64(kg) Pt. Loc: [facility] BSA: 1.8 Study Date: 11/30/2019 Pt. Type: Inpatie nt Tape: Referring: DONAYMICMUNIRAJ Reading: Tello Mejia ([id number]) Hazardous Waste Material Technician: Lolita Prado Diagnosis: *ST elevation (STEMI) myocardial [...] MV E-wave Vmax 0.58 m/sec MV deceleration [id number] msec MV A-wave Vmax 0.74 m/sec MV [...] Hypokinetic Mid-Posterolateral Hypokinetic Mid-Inferior Akinetic Mid-Inferoseptal Normal [place]-Septal Normal [place]-Anterior Normal [place]-Lateral Normal [place]-Inferior Hypokinetic [place]-Tip Normal This report has been electronically sign ed by: _ Tello Mejia MD 11/30/2019 12:45:27 Images reviewed and interpretation rafaela devin [facility] Cardiac Ultrasound Laboratory rGetchen Yoon MD ECHO ORDERABLES CT Head wo [...] Electronically signed by: Angel Luis Barboza MD, [facility] ([phone]), at 11/30/2019 12:04 PM Narrative 11/30/2019 12:04 [...] ORDERABLES Magnesium (11/30/2019 8:30 AM EDT) athologist [facility] Magnesium 0.88 0.69 - 1.07 [facility] mmol/L [facility] LABORATORY Specimen Anatomical Collection Method Collection Time Receive d Time (Source) Location / / Volume Laterality Blood specimen Venous Draw / 11/30/2019 8:30 AM 2019 8:37 (specimen) Unknown EDT AM EDT Resulting Agency Comment Spec In Lab Rossy Winn MD CHEMISTRY ORDERABLES Performing Organization Address City/[facility]/[place]IP [place] [address] (ABNORMAL) CK (11/30/2019 8:30 AM EDT) athologist [facility] CK, Total 1,645 (H) 0 - 200 [facility] Specimen Anatomical Collection Method Collection Time Receive d Time (Source) Location / / Volume Laterality Blood specimen 11/30/2019 8:30 AM 020 8:32 (specimen) EDT AM EDT Resulting Agency Comment Spec In Lab Gretchen Yoon MD CHEMISTRY ORDERABLES Performing Organization Address City/[facility] [place] [address] (ABNORMAL) Troponin (11/30/2019 8:30 AM EDT) athologist [facility] Troponin-T 8.04 (H) 0.00 - MELINA DOV 0.00 ng/mL [facility] Comment: result rechecked-rancho The 99th percentile for Troponin T is le ss than 0.01 ng/mL, any detectable cTnT concentration using this assay should be considered elevated. According to the third universal definit ion of myocardial infarction the following criteria with a clinical prese ntation consistent with acute myocardial ischemia meets the diagnosis for a myocardial infarction ([place]). Detection of a rise and/or fall of [...] additional sample may be indicated. Reference: Third Apex Definition of Myocardial Infarction. Journal of the [place] [employer] 2012;60:1581-98 Specimen Anatomical Collection Method Collection Time Receive d Time (Source) Location / / Volume Laterality Blood specimen 11/30/2019 8:30 AM 020 8:32 (specimen) EDT AM EDT Resulting Agency Comment Spec In Lab Gretchen Yoon MD CHEMISTRY ORDERABLES Performing Organization Address City/State/ZIP Code Phon e Number [place] [phone] EKG 12 Lead (11/30/2019 7:57 AM EDT) Component Value Ref Range Test Analysis Performed Pathologis t Method Time At Signature Ventricular rate 64 BPM MUSE SYSTEM Atrial Rate 64 BPM MUSE SYSTEM P-R Interval 132 ms MUSE SYSTEM QRS Duration 78 ms MUSE SYSTEM Q-T Interval 420 ms MUSE SYSTEM QTC Calculated 433 ms MUSE SYSTEM (Bezet) Calculated P [place] 28 degrees MUSE SYSTEM Calculated R [place] 7 degrees MUSE SYSTEM Calculated T [place] -33 degrees MUSE SYSTEM INTERPRETATION Sinus rhythm [...] Signature Glucose 147 (H) 65 - 99 [facility] Fasting mg/dL [facility] Comment: ?Fasting* Glucose Interpretive [...] of Diabetes Mellitus, Position Statement from the [place] [employer]. ??Diabete s Care, Volume 33, Supplement 1, Jul 2009 BUN 13 10 - 20 mg/dL [facility] Creatinine 0.90 0.80 - 1.50 mg/dL [facility]OR[facility] Sodium 135 135 - [...] Chloride 108 (H) 98 - 107 mmol/L [facility] CO2 16 (L) 22 - 31 mmol/L [facility] Anion Gap 11 5 - 15 mmol/L [facility] Calcium 7.5 (L) 8.5 - 10.5 mg/dL [facility] LABORATORY Estimated GFR 84 >=60 mL/min/1.73 m?? [facility] Comment: The eGFR was calculated using the CKD-EP I equation. As with all creatinine based estimates of kidney function, eGFR values calculated with the CKD-EPI equation are not accurate in patients wi th acute kidney failure, extremes of body mass or the acutely ill. [email or web address] CITYnkf eGFR 98 >=60 mL/min/1.73 m?? [facility] Comment: The eGFR was calculated using the CKD-EP I equation. As with all creatinine based estimates of kidney function, eGFR values calculated with the CKD-EPI equation are not accurate in patients wi th acute kidney failure, extremes of body mass or the acutely ill. [email or web address] CITYnkf Specimen Anatomical Collection Method Collection Time Receive d Time (Source) Location / / Volume Laterality Blood specimen 11/30/2019 2:15 AM 020 2:29 (specimen) EDT AM EDT Resulting Agency Comment Spec In Lab Gretchen Yoon MD CHEMISTRY ORDERABLES Performing Organization Address City/State/ZIP Code Phon e Number [place] [phone] (ABNORMAL) Hemogram (11/30/2019 2:15 AM EDT) Analysis Performed At Patho logist Time Signature WBC 11.2 (H) 4.0 - 9.5 [facility] x10(3)/[facility] LABORATORY RBC 3.83 (L) 4.58 - [facility] 5.54 [facility] x10(6)/[facility] LABORATORY Hemoglobin 11.4 (L) 13.7 - [facility] 16.5 gm/dL [facility]ORATORY Hematocrit 35.2 (L) 40.5 - [facility] 48.5 % [facility]ORATORY MCV 91.9 82.9 - [facility] 93.1 fL [facility] MCH 29.8 27.5 - [facility] 32.1 pg [facility] LAB[facility]ATORY MCHC 32.4 32.0 - MELINA MONAE 35.7 gm/dL [facility] Platelets 122 (L) 145 - 357 MELINA MARSHDOV x10(3)/[facility] LABORATORY RDWSD 49.8 (H) 36.0 - MELINA MONAE 45.0 [facility] LABORATORY RDWCV 14.8 (H) 11.4 - MELINA [place] 13.8 % [facility] LABORATORY MPV 12.1 7.6 - 12.9 MELINA MONAE [facility] LABORATORY nRBC % Auto 0.0 % [facility] LABORATORY nRBC Abs Auto 0.000 0.000 - MELINA MARSHDOV 0.000 [facility] x10(3)/[facility] LABORATORY Specimen Anatomical Collection Method Collection Time Receive d Time (Source) Location / / Volume Laterality Blood specimen 11/30/2019 2:15 AM 020 2:29 (specimen) EDT AM EDT Resulting Agency Comment Spec In Lab Gretchen Yoon MD HEMATOLOGY ORDERABLES Performing Organization Address City/State/[place] [address] (ABNORMAL) CK (11/30/2019 2:15 AM EDT) athologist [facility] CK, Total 1,969 (H) 0 - 200 [facility] DOV unit/L [facility] LABORATORY Specimen Anatomical Collection Method Collection Time Receive d Time (Source) Location / / Volume Laterality Blood specimen 11/30/2019 2:15 AM 020 2:29 (specimen) EDT AM EDT Resulting Agency Comment Spec In Lab Gretchen Yoon MD CHEMISTRY ORDERABLES Performing Organization Address City/State/[place] [address] (ABNORMAL) Troponin (11/30/2019 2:15 AM EDT) athologist [facility] Troponin-T 11.73 (H) 0.00 - MELINA MONAE 0.00 ng/mL [facility] Comment: result rechecked-slw The 99th percentile for Troponin T is le ss than 0.01 ng/mL, any detectable cTnT concentration using this assay should be considered elevated. According to the third universal definit ion of myocardial infarction the following criteria with a clinical prese ntation consistent with acute myocardial ischemia meets the diagnosis for a myocardial infarction ([place]). Detection of a rise and/or fall of [...] additional sample may be indicated. Reference: Third Apex Definition of Myocardial Infarction. Journal of the [place] [employer] 2012;60:1581-98 result rechecked- The 99th percentile for Troponin T is le ss than 0.01 ng/mL, any detectable cTnT concentration using this assay should be considered elevated. According to the third universal definit ion of myocardial infarction the following criteria with a clinical prese ntation consistent with acute myocardial ischemia meets the diagnosis for a myocardial infarction ([place]). Detection of a rise and/or fall of [...] additional sample may be indicated. Reference: Third Apex Definition of Myocardial Infarction. Journal of the [place] [employer] 2012;60:1581-98 Corrected from 11.73 ng/ml [HI] on 11/29 3:11:51 EDT by Debi Hawley Specimen Anatomical Collection Method Collection Time Receive d Time (Source) Location / / Volume Laterality Blood specimen 11/30/2019 2:15 AM 020 2:29 (specimen) EDT AM EDT Resulting Agency Comment Spec In Lab Gretchen Yoon MD CHEMISTRY ORDERABLES Performing Organization Address City/[facility]/ZIP Code Phon e Number [address] LDL Cholesterol, Direct (11/30/2019 2:15 AM EDT) P athologist Signature LDL Chol 156 mg/dL [facility] LABORATORY Comment: Lowest Risk: <100 mg/dL Lower Risk: 100-129 mg/dL Borderline High Risk: 130-159 mg/dL High Risk: 160-189 mg/dL Very High Risk: >wj=574 mg/dL Specimen Anatomical Collection Method Collection Time Receive d Time (Source) Location / / Volume Laterality Blood specimen 11/30/2019 2:15 AM 020 2:29 (specimen) EDT AM EDT Resulting Agency Comment Spec In Lab Gretchen Yoon MD CHEMISTRY ORDERABLES Performing Organization Address City/[facility]/ZIP Code Phon e Number [address] (ABNORMAL) Hemoglobin A1c (11/30/2019 [...] Mellitus, Diabetes Care 2013; 36: Suppl. 1, E56-07 Est Avg Gluc See note mg/dL [facility] LABORATORY Comment: Estimated Average Glucose not [...] with hemoglobinopathies. Additional resources are available on [facility] ADA website. Kiko CARBAJAL, Jenn J, Silas R, et al. ??Tr anslating the A1C assay into estimated average glucose values. ??Diabetes Care 2008:31(8):5193-4495. Specimen Anatomical Collection Method Collection Time Receive d Time (Source) Location / / Volume Laterality Blood specimen 11/30/2019 2:15 AM 020 2:29 (specimen) EDT AM EDT Resulting Agency Comment Spec In Lab Gretchen Yoon MD CHEMISTRY ORDERABLES Performing Organization Address City/State/[place] [address] Lipid Panel (Reflex Direct LDL) (11/30/2019 2:15 AM EDT) athologist Signature Chol, Total 195 mg/dL [facility] Comment: Lower Risk: <200 mg/dL Average Risk: 200-239 mg/dL Higher Risk: >tx=320 mg/dL Triglycerides 93 mg/dL [facility] Comment: Average Risk/Lower Risk: <150 mg/dL Borderline High Risk: 150-199 mg/dL High Risk: 200-499 mg/dL Very High Risk: >cn=637 mg/dL HDL 32 mg/dL [facility] LABORATORY Comment: Males: ?? Higher Risk: <40 mg/dL Females: ?? HIgher Risk: <50 mg/dL LDL Cholesterol 144 mg/dL [facility] Comment: Lowest Risk: <100 mg/dL Lower Risk: 100-129 mg/dL Borderline High Risk: 130-159 mg/dL High Risk: 160-189 mg/dL Very High Risk: >ln=279 mg/dL Chol/HDL Ratio 6.[address] [facility] Lipid Interpretation See Note [facility] LABORATORY Comment: Lipid management should be guided by a p atient? s ASCVD risk, goals and preferences. ACC/AHA Guidelines recommend high intens ity statin if clinical ASCVD or LDL greater than or equal to 190 mg/dL. [email or web address] Adults aged 40-75 with LDL 70-189 mg/dL should have their 10 year ASCVD risk estimated with the ACC/AHA ASCVD risk es timator http://tools.acc.org/VVWCF-Zihn-Xkanljuw r/ Statin should be discussed if risk [...] Organization Address City/State/[place] [address] (ABNORMAL) CK (11/29/2019 6:35 PM EDT) athologist Signature CK, Total 2,780 (H) 0 - 200 [facility] unit/L [facility] LABORATORY Specimen Anatomical Collection Method Collection Time Receive d Time (Source) Location / / Volume Laterality Blood specimen 11/29/2019 6:35 PM 020 6:53 (specimen) EDT PM EDT Resulting Agency Comment Spec In Lab Gretchen Yoon MD CHEMISTRY ORDERABLES Performing Organization Address City/State/[place] [address] (ABNORMAL) Troponin (11/29/2019 6:35 PM EDT) athologist Signature Troponin-T 17.60 (H) 0.00 - [facility] 0.00 ng/mL [facility] LABORATORY Comment: result rechecked-az The 99th percentile for Troponin T is le ss than 0.01 ng/mL, any detectable cTnT concentration using this assay should be considered elevated. According to the third universal definit ion of myocardial infarction the following criteria with a clinical prese ntation consistent with acute myocardial ischemia meets the diagnosis for a myocardial infarction ([place]). Detection of a rise and/or fall of [...] additional sample may be indicated. Reference: Third Apex Definition of Myocardial Infarction. Journal of the [place] College [employer]iology 2012;60:1581-98 Specimen Anatomical Collection Method Collection Time Receive d Time (Source) Location / / Volume Laterality Blood specimen 11/29/2019 6:35 PM 020 6:53 (specimen) EDT PM EDT Resulting Agency Comment Spec In Lab Gretchen Yoon MD CHEMISTRY ORDERABLES Performing Organization Address City/State/ZIP Code Phon e Number [place] [phone] EKG 12 Lead (11/29/2019 3:58 PM EDT) [facility] gist Method Time Signature Ventricular rate 73 BPM MUSE SYSTEM Atrial Rate 73 BPM MUSE SYSTEM P-R Interval 152 ms MUSE SYSTEM QRS Duration 84 ms MUSE SYSTEM Q-T Interval 404 ms MUSE SYSTEM QTC Calculated 445 ms MUSE SYSTEM (Bezet) Calculated P [place] 50 degrees MUSE SYSTEM Calculated R [place] -4 degrees MUSE SYSTEM Calculated T [place] 19 degrees MUSE SYSTEM INTERPRETATION Sinus rhythm [...] CLINICAL HISTORY: stemi ([facility]) TECHNIQUE: [...] lung apex is excluded from the imaged [id number]. IMPRESSION: 1. ??New right internal jugular pulmonar [...] lung apex is excluded from the imaged [id number]. Procedure Note Estefani Harris MD - 11/29/2019Formattin [...] lung apex is excluded from the imaged [id number]. IMPRESSION 1. New right internal jugular pulmonary [...] report, please contact e number below. Juventino Concpecion MD IMG DX ORDERABLES (ABNORMAL) Differential, Automated (11/29/2019 2:32 PM EDT) [facility] Method Time Signature Neutrophils % 83.8 % [facility] LABORATORY Neutr Abs (ANC) 12.12 (H) 1.70 - [facility] 6.10 [facility] x10(3)/[facility] LABORATORY Lymphocytes % 9.1 % [facility] LABORATORY Lymphocytes Abs 1.3 0.9 - 3.2 [facility] x10(3)/[place] [facility] LAB[facility]ATORY Monocytes % 6.2 % [facility] LABORATORY Monocyte Abs 0.9 0.3 - 0.9 [facility] x10(3)/[facility] LABORATORY Eosinophils % 0.0 % [facility] Eosinophils Abs 0.0 0.0 - 0.4 [facility] x10(3)/[facility] LABORATORY Basophils % 0.3 % [facility] Basophils Abs 0.0 0.0 - 0.1 [facility] x10(3)/[facility] LABORATORY Immature Gran % 0.60 % [facility] Comment: Immature granulocytes(IG's)percentage an d absolute count will include metamyelocytes, myelocytes, and promyelo cytes. Blood smears from CBCs yielding IG's will be scanned manually for concor dance. If this scan disagrees with the automated IG or if promyelocytes are not ed, a manual differential will be performed. Pita Gran Abs 0.08 (H) 0.00 - 0.04 x10(3)/[facility] LABORATORY Specimen Anatomical Collection Method Collection Time Receive d Time (Source) Location / / Volume Laterality Blood specimen 11/29/2019 2:32 PM 020 2:55 (specimen) EDT PM EDT Resulting Agency Comment Spec In Lab Darrell Glasgow MD HEMATOLOGY ORDERABLES Performing Organization Address City/State/[place] [address] (ABNORMAL) Hemogram (11/29/2019 2:32 PM EDT) Analysis Performed At Patho logist Time Signature WBC 14.5 (H) 4.0 - 9.5 [facility] x10(3)/[facility] LABORATORY RBC 4.53 (L) 4.58 [facility] 5.54 [facility] x10(6)/[facility] LABORATORY Hemoglobin 13.1 (L) 13.7 - [facility] 16.5 gm/dL [facility] LABORATORY Hematocrit 40.8 40.5 [facility] 48.5 % [facility]ORATORY MCV 90.1 82.9 - [facility]1 [facility] LABORATORY MCH 28.9 27.5 [facility] 32.1 pg [facility] LABORATORY MCHC 32.1 32.0 - [facility] 35.7 gm/dL [facility] LABORATORY Platelets 184 145 - 357 [facility] x10(3)/[facility] LABORATORY RDWSD 47.8 (H) 36.0 - [facility] DOV 45.0 [facility] LABORATORY RDWCV 14.5 (H) 11.4 - [facility] DOV 13.8 % [facility] LABORATORY MPV 11.9 7.6 - 12.[address] nRBC % Auto 0.0 % [facility] nRBC Abs Auto 0.000 0.000 - [facility] DOV 0.000 [facility] x10(3)/[facility] LABORATORY Specimen Anatomical Collection Method Collection Time Receive d Time (Source) Location / / Volume Laterality Blood specimen 11/29/2019 2:32 PM 020 2:55 (specimen) EDT PM EDT Resulting Agency Comment Spec In Lab Darrell Glasgow MD HEMATOLOGY ORDERABLES Performing Organization Address City/State/ZIP Code Phon e Number [address] (ABNORMAL) CK (11/29/2019 2:32 PM EDT) athologist Signature CK, Total 3,282 (H) 0 - 200 [facility] unit/L [facility] LABORATORY Specimen Anatomical Collection Method Collection Time Receive d Time (Source) Location / / Volume Laterality Blood specimen 11/29/2019 2:32 PM 020 2:32 (specimen) EDT PM EDT Resulting Agency Comment Spec In Lab Gretchen Yoon MD CHEMISTRY ORDERABLES Performing Organization Address City/[facility]/[place]IP [place] [address] (ABNORMAL) Troponin (11/29/2019 2:32 PM EDT) athologist Signature Troponin-T 20.33 (H) 0.00 - [facility] 0.00 ng/mL [facility] LABORATORY Comment: The 99th percentile for Troponin T is le ss than 0.01 ng/mL, any detectable cTnT concentration using this assay should be considered elevated. According to the third universal definit ion of myocardial infarction the following criteria with a clinical prese ntation consistent with acute myocardial ischemia meets the diagnosis for a myocardial infarction ([place]). Detection of a rise and/or fall of [...] additional sample may be indicated. Reference: Third Apex Definition of Myocardial Infarction. Journal of the [place] [employer] 2012;60:1581-98 Specimen Anatomical Collection Method Collection Time Receive d Time (Source) Location / / Volume Laterality Blood specimen 11/29/2019 2:32 PM 020 2:32 (specimen) EDT PM EDT Resulting Agency Comment Spec In Lab Gretchen Yoon MD CHEMISTRY ORDERABLES Performing Organization Address [facility] [place] [address] (ABNORMAL) APTT (11/29/2019 2:32 PM EDT) athologist Signature PTT 114 25 - 37 [facility] (Critical) [facility] LABORATORY Comment: Critical Result called [...] Yoon MD HEMATOLOGY ORDERABLES Performing Organization Address [facility] [place] [address] (ABNORMAL) Prothrombin Time (11/29/2019 2:32 PM EDT) P athologist Signature PT 13.5 (H) 9.4 - 12.5 [facility] LABORATORY INR 1.2 [facility] Comment: An INR <2.0 indicates [...] Organization Address City/State/[place] [address] (ABNORMAL) Hepatic Function Panel (11/29/2019 2:32 PM EDT) athologist Signature Total Protein 6.3 6.1 - 8.0 [facility] gm/dL [facility]ORY Albumin 3.6 3.2 - 5.2 [facility] gm/dL [facility] LABOR[facility] AST 257 (H) 0 - 39 [facility] unit/L [facility] LAB[facility]ATORY ALT 50 0 - 55 [facility]L [facility] LABORATORY Alk Phos 84 40 - 130 [facility] unit/L [facility] LABORATORY Total 0.3 0.2 - 1.3 [facility] Bilirubin mg/dL [facility] LABORATORY Bili, Direct 0.1 0.0 - 0.3 [facility] DOV mg/dL [facility] LABORATORY Specimen Anatomical Collection Method Collection Time Receive d Time (Source) Location / / Volume Laterality Blood specimen 11/29/2019 2:32 PM 020 2:32 (specimen) EDT PM EDT Resulting Agency Comment Spec In Lab Gretchen Yoon MD CHEMISTRY ORDERABLES Performing Organization Address City/[facility]/[place] [address] (ABNORMAL) pro-Brain Natriuretic Peptide (11/29/2019 2:32 PM EDT) P athologist Signature ProBNP 272 (H) <=125 pg/mL [facility] LABOR[facility] Specimen Anatomical Collection Method Collection Time Receive d Time (Source) Location / / Volume Laterality Blood specimen 11/29/2019 2:32 PM 020 2:32 (specimen) EDT PM EDT Resulting Agency Comment Spec In Lab Gretchen Yoon MD CHEMISTRY ORDERABLES Performing Organization Address City/[facility]/[place] [address] Magnesium (11/29/2019 2:32 PM EDT) athologist Signature Magnesium 0.76 0.69 - 1.07 [facility] mmol/L [facility] LABORATORY Specimen Anatomical Collection Method Collection Time Receive d Time (Source) Location / / Volume Laterality Blood specimen 11/29/2019 2:32 PM 020 2:32 (specimen) EDT PM EDT Resulting Agency Comment Spec In Lab Gretchen Yoon MD CHEMISTRY ORDERABLES Performing Organization Address City/State/ZIP Code Phon e Number [address] (ABNORMAL) Basic Metabolic Panel (non-fasting) (11/29/2019 2:32 PM EDT) athologist Signature Glucose Lvl 149 65 - 199 [facility] mg/dL [facility] LABORATORY Comment: Diabetes: >=200 mg/dL plus symp toms BUN 16 10 - 20 mg/dL [facility] LABORATORY Creatinine 0.94 0.80 - 1.50 mg/dL [facility] LABORATORY Sodium 135 135 - [...] estions. Chloride 105 98 - 107 mmol/L [facility] CO2 15 (L) 22 - 31 mmol/L [facility] Anion Gap 15 5 - 15 mmol/L [facility] LABORATORY Calcium 8.0 (L) 8.5 - 10.5 mg/dL [facility] LABORATORY Estimated GFR 80 >=60 mL/min/1.73 m?? [facility] Comment: The eGFR was calculated using the CKD-EP I equation. As with all creatinine based estimates of kidney function, eGFR values calculated with the CKD-EPI equation are not accurate in patients wi th acute kidney failure, extremes of body mass or the acutely ill. [email or web address] eGFR 93 >=60 mL/min/1.73 m?? [facility] LAB[facility] Comment: The eGFR was calculated using the CKD-EP I equation. As with all creatinine based estimates of kidney function, eGFR values calculated with the CKD-EPI equation are not accurate in patients wi th acute kidney failure, extremes of body mass or the acutely ill. [email or web address] CITYnkf Specimen Anatomical Collection Method Collection Time Receive d Time (Source) Location / / Volume Laterality Blood specimen 11/29/2019 2:32 PM 020 2:32 (specimen) EDT PM EDT Resulting Agency Comment Spec In Lab Gretchen Yoon MD CHEMISTRY ORDERABLES Performing Organization Address City/[facility] [place] [address] EKG 12 Lead (11/29/2019 11:38 AM EDT) [facility] gist Method Time Signature Ventricular rate 60 BPM MUSE SYSTEM Atrial Rate 60 BPM MUSE SYSTEM P-R Interval 140 ms MUSE SYSTEM QRS Duration 86 ms MUSE SYSTEM Q-T Interval 474 ms MUSE SYSTEM QTC Calculated 474 ms MUSE SYSTEM (Bezet) Calculated P [place] 48 degrees MUSE SYSTEM Calculated R [place] 14 degrees MUSE SYSTEM Calculated T [place] 58 degrees MUSE SYSTEM INTERPRETATION Normal sinus [...] Yoon MD ECG ORDERABLES Performing Organization Address City/[facility]/ZIP [facility] Phon e Number MUSE SYSTEM CARDIAC CATHETERIZATION (11/29/2019 11:15 AM EDT) Anatomical Region Laterality Modality Other Specimen (Source) Anatomical Location Collection Method / Collectio n Time Received Time / Laterality Volume Narrative 11/30/2019 1:09 PM EDT ?[facility] ? Cardiac Cathete rization/Intervention Report ? Patient Name: Salinas, Angel Luis H. ? Procedure Date: 11/29/2019 ? A #: [id number] ? Primary Physician: Young, Gretchen N ? Case #: [id number] ? File Name: [id number] ? Catheterization Order Number: [id number] ? [facility] ? Final Report [place], [place] ? Patient Name: ? Angel Luis Salinas ? ID#: ?[id number] ? : ?1945 ? Procedure Date: ? [...] procedure was Emergent. The indication for ?the greenskeeper laborer visit is ACS less than or [...] dose administered prior to arrival in the greenskeeper laborer. ?Recommended anti-platelet/anti- thrombotic regimen: ?Continue aspirin 81 mg daily fo r indefinitely. ?Continue clopidogrel 75 mg marco a y for 12 months then stop. ?These recommendations are made at the time of the intervention. Patient ?and provider preferences or a c hanging clinical situation may require ?modification of this regimen. C marvult [facility] Interventional Cardiology for ?questions. [...] note might be different from the original. [facility] Cardiac Catheterization/Intervention Re port Patient Name: Angel Luis Salinas Procedure Date: 11/29/2019 A #: [id number] Primary Physician: Gretchen Yoon Case #: [id number] File Name: [id number] Catheterization Order Number: [id number] [facility] Final Report [place], [place] Patient Name: Angel Luis Salinas ID#: [id number] : 1945 Procedure Date: November 29, [...] was designated as ASA Class IV. The [facility] clinical frailty scale is 4: Vulnerable. Diagnostic Tests: Electrocardiography: EKG was assessed by ECG. EKG was Abnorm al. EKG showed ST Deviation >= 0.5 mm. Medications Prior to Procedure: Aspirin. Indications for Diagnostic Cath: The priority of the diagnostic procedur e was Emergent. The indication for the greenskeeper laborer visit is ACS less than or [...] priority for the procedure was Emergent. The [facility] indication for the procedure was [...] this intervention was 10%. The final TI [place] flow was 2. Distal 90% Thrombectomy and [...] this intervention was 10%. The final TI [place] flow was 2. Vascular Access: Vascular Access [...] administered prior t o arrival in the greenskeeper laborer. Recommended anti-platelet/anti-thrombot ic regimen: Continue aspirin 81 mg daily for indefi nitely. Continue clopidogrel 75 mg daily for 12 months then stop. These recommendations are made at the t loyda of the intervention. Patient and provider preferences or a changing clinical situation may require modification of this regimen. Consult [facility] Interventional Cardiology for questions. Conclusions: * Two [...] Signature POC pH 7.33 (L) 7.35 - [facility] 7.45 [facility] LABORATORY POC PCO2 33 (L) 35 - 45 [facility] mmHg [facility] LABORATORY POC PO2 56 (L) 85 - 104 [facility] LABORATORY POC Base Excess -8.0 (L) -3.0 - 3.0 [facility] K mmol/L [facility] LABORATORY POC HCO3 17.4 (L) 20.0 - [facility] 26.0 [facility] mmol/[facility] LABORATORY POC Sodium 137 135 - 145 [facility] mmol/L [facility] LABORATORY POC Potassium 3.6 3.5 - 5.0 [facility] mmol/L [facility] POC Ionized Ca 1.15 1.15 - [facility] 1.33 [facility] mmol[facility] LABORATORY POC Hematocrit 37.0 (L) 40.0 - [facility] 51.0 % [facility] LABORATORY POC Calc Hgb 12.6 (L) 13.7 - [facility] 17.5 gm/dL [facility] LABORATORY Comment: The calculation of hemoglobin f rom hematocrit assumes a normal MCHC. POC Bgas Loc CC LAB [facility] LABORATORY Specimen Anatomical Collection Method Collection Time Receive d Time (Source) Location / / Volume Laterality Blood specimen 11/29/2019 9:17 AM 020 7:35 (specimen) EDT AM EDT Gretchen Yoon MD CHEMISTRY ORDERABLES Performing Organization Address City/State/[place] [address] EKG 12 Lead (11/29/2019 9:01 AM EDT) Component Value Ref Range Test Analysis Performed Pathologis t Method Time At Signature Ventricular rate 80 BPM MUSE SYSTEM Atrial Rate 79 BPM MUSE SYSTEM QRS Duration 94 ms MUSE SYSTEM Q-T Interval 436 ms MUSE SYSTEM QTC Calculated 502 ms MUSE SYSTEM (Bezet) Calculated R Lancaster 54 degrees MUSE SYSTEM Calculated T [place] 80 degrees MUSE SYSTEM INTERPRETATION Normal sinus rhythm MUSE SYSTEM Inferior infarct , possibly acute Prolonged QT * ACUTE [place] ?? Consider right ventricular involvement in acute [...] 150 mg, Intravenous, ONCE, 1 dose, On [place] 12/07/19 at 1315, Warning Vesicant/Irritant Medication , [...] mL/hr 250 mL/hr, Intravenous, CONTINUOUS, Starting on S[place] 12/07/19 at 0145, Until S[place]en 12/07/19 at 0239 levoFLOXacin (LEVAQUIN) 750 mg in New Bag 11/30/2019 11:03 PM EDT 750 mg 100 mL/hr dextrose 5% 150 mL 750 mg, Intravenous, at 100 mL/hr, EVERY 24 HOURS, First dose on S[place]en 11/30/19 at 2300, Until Discontinued, Routine lisinopriL [...] 11/29/19 at 1346, Until 11/29/19 at 1500, Tasenem Stanley (srt): cabinet override NORepinephrine 16 mcg/mL [...] ONCE, 1 dose, 12/06/19 at 0515, Ad bale coverer over 120 Minutes magnesium sulfate 2 g [...] Oral, EVERY 4 HOURS PRN, Startin g [place] 11/30/19 at 2016, Until Sun12/08/19 at 1811, hypokalemia
Administer for serum potassium (mMol/L) of 3.9 - 4 See instructions for Potassium Protocol in online policies.
Routine Or potassium chloride ER (K-Dur/Klor-Con) tablet 40 mEqJump to med 40 mEq, Oral, EVERY 4 HOURS PRN, Startin g S[place]en 11/30/19 at 2016, Until Sun12/08/19 at 1811, hypokalemia
Administer for serum potassium (mMol/L) of 3.6 - 3.8 See instructions for Potassium Protocol in online policies.
Routine documented in this encounter Care Teams Baggage And Mail Agent Relationship Specialty Start Date End Date France Lam MD PCP - General 05/02/13 02/04/20 [address] [place] [address] documented as of this encounter
--- OUTSIDE RECORDS SUMMARY | 2022-03-28 11:11 | XMS_ITS | Encounter Summary ---
:1945 Author Organization [facility] [place] [address] Care Team Providers Name Role Phone France Lam MD Primary Care Provider Encounter Details Date Type Department Care Team Description 11/30/2019 Orders Only Cardiology [facility] [place] [address] Social History Tobacco Use Types Packs/Day [...] fajardo ? (Age): 1945(74y) Med Rec#: ? [id number] ?Sex: ?M ? Site Loc: ? Ht / Wt: ??(cm)/ (kg) ? Pt. Loc: ? Study Date: ?? 11/29/2019 ?Pt. Type: Tape: ? Referring: Faustino Garduno Reading: Dawit Mejia ([id number]) Byproducts Pump Operator: [employer] Senior Analyst: Cedric Eric ([id number]) Interpreting Fellow: Cedric Eric ([id number]) Diagnosis: SUMMARY: 1. 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 2. [...] ? Mid-Inferior ?Akinetic ? Mid-Inferoseptal ?Hypokinetic ? [place]-Septal ? Normal ? [place]-Anterior ? Normal ? [place]-Lateral ?Normal ? [place]-Inferior ? Hypokinetic ? [place]-Tip ?Normal ? This report has been electronically sign ed by: _ Dawit Mejia MD ? 11/30/2019 12: 53:59 Images reviewed and interpretation rafaela [email or web address] [facility] Cardiac Ultrasound Laboratory Procedure Note Dawit Mejia MD - 11/30/2019Formatti ng of this note might be different from the original. Procedure: Transthoracic Echocardiogram Patient: domenica ACOSTA(Age): 6(74y) Med Rec#: [id number] Sex: M Site Loc: Ht / Wt: (cm)/ (kg) Pt. Loc: Study Date: 11/29/2019 Pt. Type: Tape: Referring: Faustino Garduno Reading: Dawit Mejia ([id number]) Byproducts Pump Operator: USR Senior Analyst: Cedric Eric ([id number]) Interpreting Fellow: Cedric Eric ([id number]) Diagnosis: SUMMARY: 1. 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 2. [...] Normal Mid-Posterolateral Akinetic Mid-Inferior Akinetic Mid-Inferoseptal Hypokinetic [place]-Septal Normal [place]-Anterior Normal [place]-Lateral Normal [place]-Inferior Hypokinetic [place]-Tip Normal This report has been electronically sign ed by: _ Dawit Mejia MD 11/30/2019 12:53:59 Images reviewed and interpretation verif ied [facility] Cardiac Ultrasound Laboratory Unknown ECHO ORDERABLES documented in this encounter Visit Diagnoses Not on filedocumented in this encounter Care Teams Mill Feeder Relationship Specialty Start Date End Date France Lam MD PCP - General 05/02/13 02/04/20 [address] [place] [address] documented as of this encounter
--- OUTSIDE RECORDS SUMMARY | 2022-03-28 11:12 | XMS_ITS | Encounter Summary ---
:1945 Author Organization [facility] [place] [address] Care Team Providers Name Role Phone France Lam MD Primary Care Provider Encounter Details Date Type Department Care Team Description 05/13/2013 Ancillary Vascular Surgery at [facility] (Primary Appointment [facility] Cesilia Sebastian, [place] Dx) [place] [id number] Social History Tobacco Use Types Packs/Day Years [...] Component Value Ref Test Analysis Performed At [facility] gist Range Method Time Signature VB Text VASCUBASE Report Department: Vascular Surgery Lab Patient: [id number] (ANGEL LUIS HI) CPT Code: 09731 ICD-9: 440.21 Referring Physician: FRANCE LAM Indication: [...] Posterior Tibial (Ankle) Art derrell ??84 ?0.64 ??Bulloch- Biphasic ?? Interpretation: RIGHT: ??Mild lower extremity [...] limb documented in this encounter Care Teams Process Project Engineer Relationship Specialty Start Date End Date France Lam MD PCP - General 05/02/13 02/04/20 [address] [place] [address] documented as of this encounter
--- OUTSIDE RECORDS SUMMARY | 2022-03-28 11:12 | XMS_ITS | Encounter Summary ---
:1945 Author Organization [place] [address] Care Team Providers Name Role Phone France Lam MD Primary Care Provider Encounter Details Date Type Department Care Team Description 05/13/2013 Orders Only Vascular Surgery at [facility] (xi luis [facility] runner worker disease) [facility] (Primary Dx) [place] [address] Social History Tobacco Use Types Packs/Day [...] unspecified documented in this encounter Care Teams Solderer Relationship Specialty Start Date End Date France Lam MD PCP - General 05/02/13 02/04/20 [address] [place] [address] documented as of this encounter
--- OUTSIDE RECORDS SUMMARY | 2022-03-28 11:12 | XMS_ITS | Encounter Summary ---
:1945 [place] [address] Care Team Providers Name Role Phone France Lam MD Primary Care Provider Encounter Details Date Type Department Care Team Description 11/29/2019 Telephone Cardiovascular [facility] Silvio piedra MD [facility] Devin [place] [address] [place] [address] [phone] (Wo rk) Social History Tobacco Use Types [...] 50s EKG: Inferior STEMI Silvio Real MD Administrative Nursing Supervisor PGY-4 11/29/2019 documented in this encounter Plan of Treatment Not on filedocumented as of this encounter Visit Diagnoses Not on filedocumented in this encounter Care Teams Circular Knife Machine Cutter Relationship Specialty Start Date End Date France Lam MD PCP - General 05/02/13 02/04/20 [address] [place] [address] documented as of this encounter
--- OUTSIDE RECORDS SUMMARY | 2022-03-28 11:12 | XMS_ITS | Encounter Summary ---
:1945 [place] [address] Care Team Providers Name Role Phone France Lam MD Primary Care Provider Reason for Visit Auth/Cert Specialty Diagnoses / Procedures Referred By Contact Refer red To Contact Diagnoses STEMI (ST elevation myocardial infarction) STEMI Procedures CARDIAC CATHETERIZATION Referral ID Status Reason Start Date Expiration Date Visits Requ ested Visits Authorized [id number] 1 1 Encounter Details Date Type Department Care Team Description 11/29/2019 Surgery Keyboard Instrument Repairer Gretchen Corral, CARDIAC CATHETERIZATION [facility] [place] [address] [place] [id number] [phone] (Wo rk) Social History Tobacco Use Types [...] Luis Salinas Patient Age: 74 y.o. Language: Beninese Race: White Ethnicity: Not nor Admit date: [...] months on: antiplatelet therapy at discretion of boiler/chiller operator - Repeat TTE in 3 months to reassess LV function - Repeat BMP in 1-2 weeks given recent start lisinopril - Referred to lipid clinic for consideration of PCSK-9 inhibitor given STEMI with intolerance of statins - Started on amiodarone this admission for recurrent rapid atrial flutter with rates ~170, recommendcontinued assessment of necessity of rhythm control strategy with boiler/chiller operator - Amiodarone monitoring recommendations as below [...] please contact your inpatient physician through the [facility] Psychological Operations Officer . Issues after hours and on weekends [...] took two full strength aspirinand came to [facility] ED. At there was found to [...] and Compazine. He was transferred directly to [facility] via [facility] for further management. Patient had an emergent PCI with 3 MACARIO stents placed to his RCA, with mild disease of LCX (report pending) at [facility]. He was found to be persistently hypotensive requiring Levo up to 10mcg/min. He was transferred to [facility] after the cath procedure. Bedside RHC showed CI 2.12, PAWP 11, PAP 38/15 indicating hypovolemic state. He received 1L bolus of NS with improvement of his blood pressure to 124/61. History of PAD, HLD - had side reactions to statins - so taking niacin and red rye grain. Chronic active smoker with more than 65 pack years. Family history of [place] in father and two uncles. He's takingbaby [...] ip as described above. On arrival at [facility] he was taken for cardiac cath where [...] priority for the procedure was Emergent. [facility] for the procedure was STEMI (after [...] number below. Electronically signed by: Estefani Harris [facility] ([phone]), at 11/29/2019 4:[address] Head wo Contrast (Generic) (Exam End: 11/30/2019 10:41 AM) Impression Focal hemorrhage with small amount of adjacent edema projecting in the region of the left optic tract. Thank you for letting us participate in the care of this patient. For questions regarding this report, please contact the number below. Electronically signed by: Angel Luis Barboza MD, [facility] ([phone]), at 11/30/2019 12:[address] Head wo [...] below. Electronically signed by: Angel Luis [facility] ([phone]), at 11/30/2019 5:[address] Angiogram [place] (Exam End: 11/30/2019 4:36 PM) Impression Head CT: Stable hemorrhage in the region of the left optic tract. CTA: Negative exam. No abnormal vasculature in the area of hemorrhage. Thank you for letting us participate in the care of this patient. For questions regarding this report, please contact the number below. Electronically signed by: Angel Luis Barboza MD, [facility] ([phone]), at 11/30/2019 5:04 PM MRI Brain wo [...] Electronically signed by: Angel Luis Barboza MD, [facility] ([phone]), at 12/01/2019 8:02 PM XR Chest One [...] number below. Electronically signed by: Latoya Ivey, [facility] ([phone]), at 11/30/2019 8:[address] Head wo [...] number below. Electronically signed by: Merari Collins [facility] ([phone]), at 12/01/2019 3:53 PM XR Chest One View (Exam End: 12/02/2019 1:00 PM) Impression Slightly increased small bibasilar pleural effusions and atelectasis. Thank you for letting us participate in the care of this patient. For questions regarding this report, please contact the number below. Electronically signed by: Ashly Marley [facility] ([phone]), at 12/02/2019 1:[address] Cardiac for [...] number below. Electronically signed by: Roselyn Luciano [facility] ([phone]), at 12/04/2019 6:16 PM MRI Brain wwo Contrast (Generic) (Exam End: 12/05/2019 7:59 PM) Impression No significant interval change. Thank you for letting us participate in the care of this patient. For questions regarding this report, please contact the number below. Electronically signed by: Merari Collins [facility] ([phone]), at 12/05/2019 10:[address] Head wo [...] number below. Electronically signed by: Merari Collins [facility] ([phone]), at 12/06/2019 10:06 PM Pending Studies and Lab Data: N/A Discharge Conditions/Prognosis: stable Discharge to: home Updated Allergies/ADRs: Allergies Allergen Reactions ??? Penicillins Pt doesn't remember reaction ??? Xawrehs-Grw-Qzo Reductase Inhibitors Stiff neck, upset stomach, back [...] medications at another hospital and then at [facility] you had a stent placed in a [...] FOR ONE MONTH AND THEN STOP. Your boiler/chiller operator may tell you to start this medication again after one year. Clopidogrel (Plavix) 75 mg daily - This medication will help prevent clots from forming in your blood, which will help protect the stent that was placed in your heart vessel. TAKE THIS FOR ONE YEAR ANDTHEN DISCUSS WITH YOUR DISTRICT COURT JUDGE WHETHER TO STOP. Amiodarone 400mg twice daily [...] follow up: Your primary care provider and boiler/chiller operator will manage your blood thinner (apixaban). You do not need lab monitoring of this medication. Diet: Please consume a healthy diet low in cholesterol Follow up Appointments: 12/10/2019 at 3:10PM with PCP Angel Luis Lott Future Appointments Date Time Provider Department Center 12/23/2019 1:30 PM Alfreda Salas APRN [facility] [id number] 12/26/2019 9:40 AM Merlin Sanchez MD [facility] CARD 4A [facility] 12/30/2019 3:40 PM Gretchen Yoon MD [address] Future Appointments and Orders Future Appointments and Orders Future Appointments Provider Department Dept Phone 12/23/2019 1:30 PM Alfreda Salas APRN Neurosurgery at [facility] Arrive at: Home [phone] Please do not come in for this visit. Your provider will call you at the number you provided. 12/26/2019 9:40 AM Merlin Sanchez MD Cardiology at [facility] Arrive at: Home [phone] Please do not come in for this visit. Your provider will call you at the number you provided. 12/30/2019 3:40 PM Gretchen Yoon MD Cardiology at [facility] Arrive at: Home [phone] Please do not come in for this visit. Your provider will call you at the number you provided. Future Orders Complete By Expires Referral to Cardiac Rehab [PRB764 Custom] As directed Process Instructions: If no [...] Referral to Home Health - at DISCHARGE [KUH4882 CPT(R)] As directed Process Instructions: Scheduling Instructions: Comments: DOCUMENTATION FOR VNA SERVICES PATIENT'S LOCATION: Angel Luis Corcoran [address] [address] (home) Wallpaper Installer's Name: Self In discussion with the attending physician, it is certified that this patient is under his/her care and that MD, or an DIRECTOR OF WOMEN'S SERVICES, PLANT AND MAINTENANCE TECHNICIAN, or PA who is working directly with him/her, had a vpii-hy-yxpr encounter that meets the physician kycw-vp-uflp encounter requirements with this patient on 12/07/2019. [...] for managing ADLs. HOME HEALTH CARE AGENCY: [facility], PHONE: [phone] FAX: [phone] Start of care: 24-48 hours after hospital [...] MD [address] / [place] [address] All A agencies which cover the area of patient's residence have been reviewed, either verbally or in writing, and patient/family have chosen the home health care agency noted. Questions: Agency name and contact information: [facility] Patient location post discharge: Home What services are requested: Registered Nurse Physical Therapy Occupational Therapy Start date: Responsible MD post discharge contact info: PCP Your PCP: France Lam MD [phone] For questions regarding this document or issues relating to this hospitalization on the Cardiology Service, please contact your inpatient physician through the [facility] Psychological Operations Officer . Issues after hours and on weekends will be handled by the Final Canoe Inspector on-call. Patient Instructions: Neurology Your Diagnosis: Left [...] follow-up appointment in the neurology clinic at [facility]. See below for the appointment time. [...] 1:30 PM Alfreda Salas APRN Neurosurgery at [facility] Arrive at: Home [phone] Please do not come in for this visit. Your provider will call you at the number you provided. 12/26/2019 9:40 AM Merlin Sanchez MD Cardiology at [facility] Arrive at: Home [phone] Please do not come in for this visit. Your provider will call you at the number you provided. 12/30/2019 3:40 PM Gretchen Yoon MD Cardiology at [facility] Arrive at: Home [phone] Please do not come in for this visit. Your provider will call you at the number you provided. Future Orders Complete By Expires Referral to Cardiac Rehab [[id number] Custom] As directed Process Instructions: If no [...] Referral to Home Health - at DISCHARGE [SGM7199 CPT(R)] As directed Process Instructions: Scheduling Instructions: Comments: DOCUMENTATION FOR VNA SERVICES PATIENT'S LOCATION: [address] [address] (home) Wallpaper Installer's Name: Self In discussion with the attending physician, it is certified that this patient is under his/her care and that MD, or an DIRECTOR OF WOMEN'S SERVICES, PLANT AND MAINTENANCE TECHNICIAN, or PA who is working directly with him/her, had a izrz-uq-ucci encounter that meets the physician eyib-om-ssyz encounter requirements with this patient on 12/07/2019. [...] for managing ADLs. HOME HEALTH CARE AGENCY: [facility], PHONE: [phone] FAX: [phone] Start of care: 24-48 hours after hospital [...] MD [address] / [place] [address] All A agencies which cover the area of patient's residence have been reviewed, either verbally or in writing, and patient/family have chosen the home health care agency noted. Questions: Agency name and contact information: [facility] Patient location post discharge: Home What services are requested: Registered Nurse Physical Therapy Occupational Therapy Start date: Responsible MD post discharge contact info: PCP Discharge References/Attachments Atrial Fibrillation (Beninese) Cardiac Rehabilitation (Beninese) Heart Failure (Beninese) Heart Failure: Limiting Sodium (Beninese) Hemorrhagic Stroke: General Info (Beninese) Smoking: Stopping (Beninese) Stroke Rehabilitation: General Info (Beninese) Pulmonary Embolism (Beninese) Riki Stevens MD PGY-3, Internal Medicine Cardiology S2, #0322 Associated attestation - Paris Dodd MD - 12/09/2019 4:44 PM EDT Cardiology Attending Discharge Addendum I was the assigned attending boiler/chiller operator for this clinical encounter. For the [...] complications include novel onset, paroxysmal atrial fibrillation [[id number]: 5] & L-sided diplopia with potential hemineglect [...] My contact information: Paris Matt MD MPH [address], [place] [address] (office); Pager #[phone] Email: documented in this encounter Discharge Instructions Patient InstructionsFiRiki de jesus MD - 12/02/2019 9:56 AM EDT Images from the original note were not included. Why you were hospitalized: You had a heart attack. You received clot-busting medications at another hospital and then at [facility] you had a stent placed in a [...] FOR ONE MONTH AND THEN STOP. Your boiler/chiller operator may tell you to start this medication again after one year. Clopidogrel (Plavix) 75 mg daily - This medication will help prevent clots from forming in your blood, which will help protect the stent that was placed in your heart vessel. TAKE THIS FOR ONE YEAR ANDTHEN DISCUSS WITH YOUR DISTRICT COURT JUDGE WHETHER TO STOP. Amiodarone 400mg twice daily [...] follow up: Your primary care provider and boiler/chiller operator will manage your blood thinner (apixaban). You do not need lab monitoring of this medication. Diet: Please consume a healthy diet low in cholesterol Follow up Appointments: 12/10/2019 at 3:10PM with PCP Angel Luis Lott Future Appointments Date Time Provider Department Center 12/23/2019 1:30 PM Alfreda Salas APRN [facility] [id number] [facility] 12/26/2019 9:40 AM Merlin Sanchez MD [facility] CARD 4A [facility] 12/30/2019 3:40 PM Gretchen Yoon MD [facility] CARD 4A [facility] Future Appointments and Orders Future Appointments and Orders Future Appointments Provider Department Dept Phone 12/23/2019 1:30 PM Alfreda Salas APRN Neurosurgery at [facility] Arrive at: Home [phone] Please do not come in for this visit. Your provider will call you at the number you provided. 12/26/2019 9:40 AM Merlin Sanchez MD Cardiology at [facility] Arrive at: Home [phone] Please do not come in for this visit. Your provider will call you at the number you provided. 12/30/2019 3:40 PM Gretchen Yoon MD Cardiology at [facility] Arrive at: Home [phone] Please do not come in for this visit. Your provider will call you at the number you provided. Future Orders Complete By Expires Referral to Cardiac Rehab [[id number] Custom] As directed Process Instructions: If no [...] Referral to Home Health - at DISCHARGE [[id number] CPT(R)] As directed Process Instructions: Scheduling Instructions: Comments: DOCUMENTATION FOR VNA SERVICES PATIENT'S LOCATION: [address] [phone] (home) Wallpaper Installer's Name: Self In discussion with the attending physician, it is certified that this patient is under his/her care and that MD, or an DIRECTOR OF WOMEN'S SERVICES, PLANT AND MAINTENANCE TECHNICIAN, or PA who is working directly with him/her, had a wpcf-cp-qiap encounter that meets the physician vhmw-ou-jbbr encounter requirements with this patient on 12/07/2019. [...] for managing ADLs. HOME HEALTH CARE AGENCY: [facility], PHONE: [phone] FAX: [phone] Start of care: 24-48 hours after hospital [...] MD [address] / [place] [address] All A agencies which cover the area of patient's residence have been reviewed, either verbally or in writing, and patient/family have chosen the home health care agency noted. Questions: Agency name and contact information: [facility] Patient location post discharge: Home What services are requested: Registered Nurse Physical Therapy Occupational Therapy Start date: Responsible MD post discharge contact info: PCP Your PCP: France Lam MD [phone] For questions regarding this document or issues relating to this hospitalization on the Cardiology Service, please contact your inpatient physician through the [facility] Psychological Operations Officer . Issues after hours and on weekends will be handled by the Final Canoe Inspector on-call. Patient Instructions: Neurology Your Diagnosis: Left [...] follow-up appointment in the neurology clinic at [facility]. See below for the appointment time. If you do not have an appointment, you will be called with a time/date for this appointment. ??? Primary Care Provider: Please follow up with your Primary Care Provider within one to 2 weeks ofdischarge. AttachmentsThe following attachments cannot be sent through Care Everywhere. Atrial Fibrillation (Beninese)Cardiac Rehabilitation (Beninese)Heart Failure (Beninese)Heart Failure: Limiting Sodium (Beninese)Hemorrhagic Stroke: General Info (Beninese)Smoking: Stopping (Beninese)Stroke Rehabilitation: General Info (Beninese)Pulmonary Embolism (Beninese)documented in this encounter Medications at Time of [...] consulted in the interim. Vikash Rodriguez Pager: [phone] Paris Dodd MD - 12/08/2019 8:57 AM [...] complications include novel onset, paroxysmal atrial fibrillation [[id number]: 5] & L-sided diplopia with potential hemineglect [...] consulted in the interim. Vikash Rodriguez Pager: [phone] Paris Dodd MD - 12/07/2019 9:55 AM [...] complications include novel onset, paroxysmal atrial fibrillation [WSE0AQ1VEMH: 5] & L-sided diplopia with potential hemineglect [...] complications include novel onset, paroxysmal atrial fibrillation [LRJ7UL4BSMR: 5] & L-sided diplopia with potential hemineglect [...] complications include novel onset, paroxysmal atrial fibrillation [TBH9TQ9YNIS: 5] & L-sided diplopia with potential hemineglect [...] today; additional complications include paroxysmal atrial fibrillation [[id number]: 4] c/b possible cardioembolic stroke, ICH from [...] length from neck/greatest diameter to back wall: ERITREAN 91, CAU 13: 19 mm CORTES 1, [...] a non-culprit artery. S/P DESx3 in the ybtbkrkh-zz-egjxjr RCA. Aspiration thrombectomy performed, and integrellin bolus [...] complications include novel onset, paroxysmal atrial fibrillation [UWR1NG3WGBI: 5] & L-sided diplopia with potential hemineglect [...] R occipital cardioembolic stroke #Paroxysmal Afib with WA2ARYJT7O score of 5 #New segmental bilateral PEs [...] Glasgow MD PGY1, Internal Medicine Cardiology S2, #0635 Associated attestation - Paris Dodd MD - 12/05/2019 2:59 PM EDT I was the assigned attending boiler/chiller operator for this clinical encounter. For the [...] 12/04/2019 10:36 AM EDT Office of Care Management(OCM)/Partner Management Consultant(CM)/Discharge Planning Service: Cardiology S2 team CM Bernie Alexander,RN,BSN,MA,ACM pgr [phone] Reviewed record and in Cardiology Rounds with MD team,CMs, wood gang sawyer, STREET INSPECTOR. Pt is anticipated ready for d/c later [...] AD to his PCP and to any [facility] appt for each to have on file. [...] complications include novel onset, paroxysmal atrial fibrillation [JMD5TT0JMUH: 4] & L-sided diplopia with potential hemineglect [...] a non-culprit artery. S/P DESx3 in the jruszqsa-ba-eidyxg RCA. Aspiration thrombectomy performed, and integrellin bolus [...] complications include novel onset, paroxysmal atrial fibrillation [TLI8IT9TRTY: 5] & L-sided diplopia with potential hemineglect [...] R occipital cardioembolic stroke #Paroxysmal Afib with VV8YNHTU0X score of 5 - No anticoagulation for [...] Glasgow MD PGY1, Internal Medicine Cardiology S2, #1485 I have seen the patient and reviewed [...] in my clinic. Gretchen Yoon MD Pager [phone] Derian Pascual RN - 12/03/2019 9:29 AM [...] Discharge: None Electronically signed: Derian Pascual RN, Partner Management Consultant Pgr: [phone] 12/03/2019 9:29 AM Gretchen Yoon [...] complications include novel onset, paroxysmal atrial fibrillation [HMQ2ZZ8PALS: 4] & L-sided diplopia with potential hemineglect [...] a non-culprit artery. S/P DESx3 in the wcsegtjw-ee-jydoht RCA. Aspiration thrombectomy performed, and integrellin bolus [...] complications include novel onset, paroxysmal atrial fibrillation [YMP9JO7UCVL: 5] & L-sided diplopia with potential hemineglect [...] [facility] with [facility]. Patient voiced strong will to quit smoking now, understood that we have resources available for help. Plan [P]: --Neurologic-- # Concern for Left-Sided Diplopia, r/o Hemineglect # Concern for CVA, last-known well 11/29/19 - MRI showed possible cardioembolic stroke #Afib with RW5TJJKM3M score of 5 - Stroke Team Consulted; [...] Anticoagulation/Arrhythmia # Novel Onset, Paroxsymal Atrial Fibrillation [[id number]: 5] - Hold off anticoagulation for at [...] w straight cath prn # Nutrition - [facility] Diet, 2g Na. -- Hematology/Oncology-- # Mild [...] Glasgow MD PGY1, Internal Medicine Cardiology S2, #6639 I have seen the patient and reviewed the resident's above history and I agree with the details as written. The assessment and plan were formulated in discussion with me and I agree with them as documented. Gretchen Yoon MD Pager [phone] Raul Hein RN - 12/03/2019 5:55 AM [...] Negative mcL Appearance UA Clear Clear Spec [place] UA 1.026 1.006 - 1.030 Color UA [...] PGY3 Neurology Resident 12/01/2019 Vascular Neurology Pager [phone] Neurology Attending Attestation I evaluated the patient [...] documented. Deepthi Roman MD Vascular Neurology Standard [facility] Swallow Screen: This screen is to be [...] diet as medical provider deems appropriate. Consider HEAVY EQUIPMENT SALES ASSOCIATE consult for full evaluation and diet recommendations. [...] complications include novel onset, paroxysmal atrial fibrillation [DTL8HU5QCJZ: 4] & L-sided diplopia with potential hemineglect [...] a non-culprit artery. S/P DESx3 in the ltjfeqnc-lj-eimfus RCA. Aspiration thrombectomy performed, and integrellin bolus [...] complications include novel onset, paroxysmal atrial fibrillation [HRJ1DH7ZJMH: 5] & L-sided diplopia with potential hemineglect [...] Anticoagulation/Arrhythmia # Novel Onset, Paroxsymal Atrial Fibrillation [CZC4AC3TAOG: 5] - Hold off anticoagulation - pending [...] tamsulosin d/t low BP. # Nutrition - [facility] Diet -- Hematology/Oncology-- # Mild Thrombocytopenia, unclear [...] Glasgow MD PGY1, Internal Medicine Cardiology S2, #5182 I have seen the patient and reviewed [...] the ICU team. Gretchen Yoon MD Pager [phone] Natalia Claros APRN - 12/02/2019 8:38 AM [...] - We are signing off. Please page [phone] with any questions or concerns. For questions please call NSGY pager [phone] Natalia Claros APRN 12/02/2019 8:38 AM Clinical Documentation Improvement: Active Hospital Problems Diagnosis ??? Acute ST elevation myocardial infarction (STEMI) of inferior wall ??? Intracranial hemorrhage ??? Hyperlipidemia ??? Tobacco abuse ??? Claudication from peripheral vascular disease, left Resolved Hospital Problems No resolved problems to display. Tello Hsu, SUPERVISOR [employer] - 12/02/2019 2:06 AM EDT 12/01/192009 Oxygen [...] number below. Electronically signed by: Latoya Ivey [facility] ([phone]), at 11/30/2019 8:32 PM ASSESSMENT: Patient states he is breathing easier than last night. Still increased WOB PLAN: Wean FiO2 as tolerated. Patient to CT Scan in afternoon. Upon arrival back in [facility] placed on low flow NC at [...] complications include novel onset, paroxysmal atrial fibrillation [UKQ3PM2SEQU: 4] & L-sided diplopia with potential hemineglect for which CVA evaluationto be pursued. Active Problems/Subjective: - 11/28: admitted for inferior STEMI, RV failure requiring pressor - got lytics, aspirin and plavix load, heparin gtt, and eptifibatide. 3 MACARIO stents to RCA. [place] cath - low wedge & CVP so [...] a non-culprit artery. S/P DESx3 in the eghnpesy-ik-plssqh RCA. Aspiration thrombectomy performed, and integrellin bolus [...] complications include novel onset, paroxysmal atrial fibrillation [[id number]: 4] & L-sided diplopia with potential hemineglect [...] Anticoagulation/Arrhythmia # Novel Onset, Paroxsymal Atrial Fibrillation [[id number]: 4] - Obtain: TTE - Pending CVA [...] tamsulosin d/t low BP. # Nutrition - [facility] Diet -- Hematology/Oncology-- # Mild Thrombocytopenia, unclear [...] MD, PGY1 PGY3, Internal Medicine Cardiology S2, #[id number] I have seen the patient and reviewed [...] down the line. Gretchen Yoon MD Pager [phone] ?? Gretchen Yoon MD Pager [phone] Natalia Claros APRN - 12/01/2019 1:33 AM [...] per primary team For questions please call [employer] pager [phone] Natalia Claros APRN 12/01/2019 7:42 AM Clinical Documentation Improvement: Active Hospital Problems Diagnosis ??? Acute ST elevation myocardial infarction (STEMI) of inferior wall ??? Intracranial hemorrhage ??? Hyperlipidemia ??? Tobacco abuse ??? Claudication from peripheral vascular disease, left Resolved Hospital Problems No resolved problems to display. Tello Hsu, SUPERVISOR [employer] - 11/30/2019 8:44 PM EDT Respiratory Therapy [...] number below. Electronically signed by: Latoya Ivey [facility] ([phone]), at 11/30/2019 8:32 PM ASSESSMENT: Patient had [...] EDT Narrative:Visited in response to request for [employer] services. Pt was awake, alert, oriented and in bed. Assessment:Patient coping positively with stresses of illness/hospitalization at this time. Pt says that he is hoping to get better and pt is living with and has children and grandchildren. Pt haspurpose of life and has reason to get getter and to be with family. Outcome: Provided emotional and spiritual support and encouraging presence. [employer] services accepted.Conversation to build trusting relationship.Provided pastoral [...] complications include novel onset, paroxysmal atrial fibrillation [[id number]: 4] & L-sided diplopia with potential hemineglect for which CVA evaluationto be pursued. Active Problems/Subjective: - Overnight, CVP < 12 for which a total of 1 L IVF provided - Today AM, patient complains of subjectively reported, left-sided hemineglect with floaters and diplopia [see: exam]. - Otherwise, c/o neck pain 2/2 R IJ [place] & L radial A line. Otherwise, denies [...] a non-culprit artery. S/P DESx3 in the juhszvan-gr-kdpzqn RCA. Aspiration thrombectomy performed, and integrellin bolus [...] complications include novel onset, paroxysmal atrial fibrillation [[id number]: 4] & L-sided diplopia with potential hemineglect [...] Anticoagulation/Arrhythmia # Novel Onset, Paroxsymal Atrial Fibrillation [[id number]: 4] - Obtain: TTE to confirm rhythm [...] tamsulosin d/t low BP. # Nutrition - [facility] Diet -- Hematology/Oncology-- # Mild Thrombocytopenia, unclear [...] MD, PGY3 PGY3, Internal Medicine Cardiology S2, #[id number] I have seen the patient and reviewed [...] down the line. Gretchen Yoon MD Pager [phone] Paola Capps RN - 11/30/2019 6:57 AM EDT PT still requiring 4 of levo, several attempts to titrate down (maps in 70;s) But maps would drop toless than 65. Pt very restless in bed Raising and lowering head denies pain . Integrillin stopped [id number] when bottle complete , urine tea colored [...] PCP: France Lam MD PCP phone #: [phone] Bill Distributor: None ID/Chief Complaint: Chest pain History of Present Illness: 74 y.o male with no significant PMH, was in usual state of health until yesterday when he woke up at 4am this morning with severe crushing substernal chest pain 04/10. He took two full strength aspirin and came to [facility] ED. At there was found to [...] and Compazine. He was transferred directly to [facility] via [facility] for further management. Patient had an emergent PCI with 3 MACARIO stents placed to his RCA, with mild disease of LCX (report pending) at [facility]. He was found to be persistently hypotensive requiring Levo up to 10mcg/min. He was transferred to [facility] after the cath procedure. Bedside RHC showed CI 2.12, PAWP 11, PAP 38/15 indicating hypovolemic state. He received 1L bolus of NS with improvement of his blood pressure to 124/61. History of PAD, HLD - had side reactions to statins - so taking niacin and red rye grain. Chronic active smoker with more than 65 pack years. Family history of [place] in father and two uncles. He's takingbaby [...] ??? Penicillins Pt doesn't remember reaction ??? Srfehim-Oxj-Oxw Reductase Inhibitors Stiff neck, upset stomach, back pain Family History: Mother: Father: [place] 2 Uncles with MIs Social History: Tobacco: Current active smoker 1 ppd. 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 Vitals: Last value Range last [...] in the last 7068 hours. Invalid input(s): [id number] Heme: No results for input(s): LDH, HAPTOGLOBIN, [...] OSH prior to transfer and PCI at [facility]. Massive inferior STEMI with troponin level 20, currently in CVCC due to pressor requirement. BedsideRHC demonstrated evidence of elevated right sided heart failure, but his wedge was wnl. He received 1L bolus with improvement of his blood pressure and reduction of his pressor requirement. PLAN: Admit to Cardiology, S2 Team Pager # [phone] #Inferior STEMI, LEYLA 149 - Resolving EKG [...] inferior STEMI s/p lytic therapy. Transferred to [facility] and underwent successful PCI of the RCA with MACARIO x3. Gretchen Yoon MD Pager [phone] documented in this encounter Procedure Notes Juventino [...] to the planned procedure. 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 Location of Procedure: [facility] Risks and Benefits: The risks and [...] to the planned procedure. 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 [place]. Insertion Side: right. Insertion Site: internal jugular. Catheter Details: Number of Lumens: 1 Catheter Type: heparin-coated The line was placed over a guidewire. Confirmation of Venous Placement: Venous placement was confirmed by transducing the pressure. Introducer Insertion Attempts: 1 Comments: Floating the [place] Catheter Attempts: 1 Comments: Sterile Dressing: Biopatch [...] of feelings encouraged Consult Note - Sarah Byoer RN - 12/07/2019 2:25 PM EDT Called [...] better pt back in SR. Please page [phone] for any more cares or concerns Plan [...] complications include novel onset, paroxysmal atrial fibrillation [[id number]: 5]& L-sided diplopia with potential hemineglect for [...] Total Evaluation Minutes, Occupational Therapy: 10 Pager: [phone] FRANCINE Nuñez Occupational Therapy Rehabilitation Department Plan [...] complications include novel onset, paroxysmal atrial fibrillation [[id number]: 5] & L-sided diplopia with potential hemineglect [...] in a 1 level home with 3 ELVY (b/l hand rails). Baseline Mobility: Independent. Drives. 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 Time IN / OUT: 6217-2211 Total Evaluation Minutes, Physical Therapy: 15(gtx1) Barbara Baldwin, PT Pager: [phone] Physical Therapy Inpatient Rehabilitation Department Plan of [...] he receives all he needs through [facility]. Consult refused. Romain Tran, MSN, RN-, [facility] Tobacco Mechanical Manager [facility] Pager #[phone] Plan of Care - Romain Oglesby OT [...] complications include novel onset, paroxysmal atrial fibrillation [[id number]: 5] & L-sided diplopia with potential hemineglect [...] and measurable assessment of functional outcome. Pager: [phone] ROMAIN OGLESBY OT 12/03/2019 Occupational Therapy Rehabilitation [...] complications include novel onset, paroxysmal atrial fibrillation [YVC1ZR8VZDN: 5] & L-sided diplopia with potential hemineglect [...] hand rails). Baseline Mobility: Independent. Drives. 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 Time IN / OUT: 2037-8662 Total Evaluation Minutes, Physical Therapy: 25(eval, gtx1) Barbara Baldwin, PT Pager: [phone] Physical Therapy Inpatient Rehabilitation Department Consult Note [...] 31.2 (L) 12/01/2019 Nutritional Intake Current bed: [facility] [place] A.I.R. Assessment: Patient is with an area [...] Please contact JOHANNA NOBLES RN on pager [phone] or the wound care team at [phone] or pager [phone] skin and wound care concerns or questions. [...] Sal[place] would be surrogate decision maker per [place] surrogate decision making law. Any patient receiving carspousee at [facility] must abide by [place] law. The hierarchy for surrogate decisionmaking is: [...] (i) The agent with financial power of defense attorney or a conservator appointed in accordance [...] Insurance: N/A Prescription Coverage: Yes Preferred Pharmacy: [place] Other: No Primary Care Provider: France Lam MD [phone] Patient/Caregiver Goals of Treatment: Return home Potential Needs for Transition of Care: Rehab/SNF: Based on discussions with the multi-disciplinary healthcare team, the patient would benefit from SNF level of care at discharge. ?? I have met with the patient to discuss discharge planning needs. I have provided the [facility], Officeof Care Management letter from the Jitney Driver pertaining to rehab referrals. I have also provided a letter describing our affiliations within the [facility] and educated them about their right [...] patient have requested referrals to: ?? [facility] [address] [place] [address] ?? [address]. [address] , [place] [address] Note routed to Typewriter Aligner who will communicate referrals to facilities and provide any required information. Home Health: If therapies recommend home w/ VNA, the patient has been provided a list of Home Health Agencies/DME vendors which serve their preferred geographic area. A letter describing our affiliations was reviewed with them and they were educated about their right to choose where referrals are placed. Patient requests referral to [facility] [employer]. PHONE: [phone] FAX: [phone] Referral routed to the Typewriter Aligner for matching with agency/vendor and to provide [...] Insured w/ Medicare. Gets medications filled at [facility] in [place], [place]. Son to transport at discharge Plan: Discharge dispo depending on patient's physical recovery; SNF vs home w/ VNA. A member of the Care Management team will continue to monitor progress, follow for continuity of care and assist with transition of care planning. Derian Pascual RN Pager: [phone] Plan of Care - Estefani Encarnacion RN [...] ??? Penicillins Pt doesn't remember reaction ??? Ahdnpwy-Csq-Nto Reductase Inhibitors Stiff neck, upset stomach, back [...] noncontrast head CT and CT [place] at 1600 hrs. We will [...] vision concerning for stroke. Patient presented to [facility] in transfer for a STEMI after presenting [...] ??? Penicillins Pt doesn't remember reaction ??? 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 Consider HEAVY EQUIPMENT SALES ASSOCIATE consult for full evaluation and diet recommendations. [...] Afib admitted s/p thrombolysis and Cath-Stent to [facility] who developed R sided visual symptoms. [...] hours. Evan Mejia MD Department of Neurology [facility] Brief Op Note - Gretchen Yoon MD - 11/29/2019 8:38 PM EDT Brief Operative Note Patient Name: Angel Luis Salinas : [id number] MR#: [id number] Case Date: 11/29/2019 Surgeon: Surgeon(s) and Role: * Gretchen Yoon MD - Primary * Aidan Ward MD - Fellow Preoperative diagnosis: Inferior STEMI Postoperative diagnosis: Inferior STEMI Procedure(s) (LRB): CARDIAC CATHETERIZATION (N/A) Findings: Discrete 90% stenosis in the prox-to-mid RCA. Severe diffuse disease in the distal vessel. Discrete LCX stenosis in a non-culprit artery. S/P DESx3 in the wsumbysq-ii-ztreaf RCA. Aspiration thrombectomy performed, and integrellin bolus [...] are i n the results section. CT [place] STAT 11/30/2019 4:36 Res [...] athologist Signature Potassium 3.9 3.5 - 5.0 [facility] mmol/L [facility] Comment: Please note: ??Patients with [...] Organization Address City/State/[place] [address] (ABNORMAL) Hemogram (12/08/2019 12:39 PM EDT) Analysis Performed At Patho logist Time Signature WBC 9.9 (H) 4.0 - 9.5 [facility] x10(3)/[facility] LABORATORY RBC 4.51 (L) 4.58 - [place] OLIVIA 5.54 [facility] x10(6)/[facility] LABORATORY Hemoglobin 13.0 (L) 13.7 - [place] OLIVIA 16.5 gm/dL [facility] Hematocrit 40.5 40.5 - [place] OLIVIA 48.5 % [facility] MCV 89.8 82.9 - [facility] OLIVIA 93.1 [facility] LABORATORY MCH 28.8 27.5 - [place] OLIV[place] 32.[address] [facility] MCHC 32.1 32.0 - [place] OLIV[place] 35.7 gm/dL [facility] Platelets 214 145 - 357 [facility] x10(3)/[facility] LABORATORY RDWSD 49.2 (H) 36.0 - [place] OLIVIA 45.0 [facility] LABORATORY RDWCV 15.1 (H) 11.4 - [facility] 13.8 % [facility] MPV 12.1 7.6 - 12.9 [facility] OLIVIA [facility] LABORATORY nRBC % Auto 0.0 % [facility] nRBC Abs Auto 0.000 0.000 - [facility] 0.000 [facility] x10(3)/[facility] LABORATORY Specimen Anatomical Collection Method Collection Time Receive d Time (Source) Location / / Volume Laterality Blood specimen 12/08/2019 12:39 0 (specimen) PM EDT 12:47 PM EDT Resulting Agency Comment Spec In Lab Gretchen Yoon MD HEMATOLOGY ORDERABLES Performing Organization Address City/State/ZIP Code Phon e Number [address] Hepatic Function Panel (12/08/2019 6:28 AM EDT) athologist Signature Total Protein 6.6 6.1 - 8.0 [place] OLIVIA gm/dL [facility] Albumin 3.2 3.2 - 5.2 [place] OLIV[place] gm/dL [facility] AST 18 0 - 39 [place] OLIV[place] unit/L [facility] ALT 13 0 - 55 [facility] OLIVIA unit/L [facility] Alk Phos 64 40 - 130 [facility] OLIVIA unit/L [facility] Total 0.4 0.2 - 1.3 [place] OLIV[place] Bilirubin mg/dL [facility] Bili, Direct 0.1 0.0 - 0.3 [facility] OLIVIA mg/dL [facility] Specimen Anatomical Collection Method Collection Time Receive d Time (Source) Location / / Volume Laterality Blood specimen Venous Draw / 12/08/2019 6:28 AM 2019 6:36 (specimen) Unknown EDT AM EDT Resulting Agency Comment Spec In Lab Riki Stevens MD CHEMISTRY ORDERABLES Performing Organization Address City/[facility]/ZIP Code Phon e Number [address] (ABNORMAL) TSH (12/08/2019 6:28 AM EDT) athologist Signature TSH 5.27 (H) 0.27 - 4.20 [facility] mcIU/mL [facility] Specimen Anatomical Collection Method Collection Time Receive d Time (Source) Location / / Volume Laterality Blood specimen Venous Draw / 12/08/2019 6:28 AM 2019 6:36 (specimen) Unknown EDT AM EDT Resulting Agency Comment Spec In Lab Darrell Glasgow MD CHEMISTRY ORDERABLES Performing Organization Address City/[facility]/ZIP Code Phon e Number [address] Potassium (12/08/2019 6:28 AM EDT) P athologist Signature Potassium 4.2 3.5 - 5.0 [facility] mmol/L [facility] Comment: Please note: ??Patients with [...] Organization Address City/State/[place] [address] (ABNORMAL) Differential, Automated (12/08/2019 12:43 AM EDT) Patholo gist Method Time Signature Neutrophils % 60.7 % [facility] Neutr Abs (ANC) 6.81 (H) 1.70 - [facility] 6.10 [facility] x10(3)/[facility] LABORATORY Lymphocytes % 23.4 % [facility] Lymphocytes Abs 2.6 0.9 - 3.2 [facility] x10(3)/[facility] LABORATORY Monocytes % 10.0 % [facility] Monocyte Abs 1.1 (H) 0.3 - 0.9 [facility] x10(3)/[facility] LABORATORY Eosinophils % 3.7 % [facility] Eosinophils Abs 0.4 0.0 - 0.4 [facility] x10(3)/[facility] LABORATORY Basophils % 1.2 % [facility] Basophils Abs 0.1 0.0 - 0.1 [facility] x10(3)/[facility] LABORATORY Immature Gran % 1.00 % [facility] Comment: Immature granulocytes(IG's)percentage an [...] Organization Address City/State/[place] [address] (ABNORMAL) Hemogram (12/08/2019 12:43 AM EDT) Analysis Performed At Patho logist Time Signature WBC 11.2 (H) 4.0 - 9.5 [facility] x10(3)/[facility] LABORATORY RBC 4.46 (L) 4.58 - [facility] OLIVIA 5.54 [facility] x10(6)/[facility] LABORATORY Hemoglobin 13.1 (L) 13.7 - [facility] 16.5 gm/dL [facility] Hematocrit 40.5 40.5 - [facility] OLIVIA 48.5 % [facility] MCV 90.8 82.9 - [facility] 93.1 [facility] LABORATORY MCH 29.4 27.5 - [facility] OLIVIA 32.[address] [facility] MCHC 32.3 32.0 - [facility] OLIVIA 35.7 gm/dL [facility] Platelets 215 145 - 357 [facility] x10(3)/[facility] LABORATORY RDWSD 49.8 (H) 36.0 - [facility] OLIVIA 45.0 [facility] LABORATORY RDWCV 15.2 (H) 11.4 - [facility] OLIVIA 13.8 % [facility] MPV 12.3 7.6 - 12.9 [facility] LABORATORY nRBC % Auto 0.0 % [facility] nRBC Abs Auto 0.000 0.000 - [facility] [employer] 0.000 [facility] x10(3)/[facility] LABORATORY Specimen Anatomical Collection Method Collection Time Receive d Time (Source) Location / / Volume Laterality Blood specimen 12/08/2019 12:43 0 (specimen) AM EDT 12:52 AM EDT Resulting Agency Comment Spec In Lab Riki Stevens MD HEMATOLOGY ORDERABLES Performing Organization Address City/State/ZIP Code Phon e Number [address] Magnesium (12/08/2019 12:43 AM EDT) athologist Signature Magnesium 1.01 0.69 - 1.07 [facility] mmol/L [facility] Specimen Anatomical Collection Method Collection Time Receive d Time (Source) Location / / Volume Laterality Blood specimen 12/08/2019 12:43 0 (specimen) AM EDT 12:52 AM EDT Resulting Agency Comment Spec In Lab Gretchen Yoon MD CHEMISTRY ORDERABLES Performing Organization Address City/State/[place] [address] (ABNORMAL) BMP w/fasting Glucose (12/08/2019 12:43 AM EDT) P athologist Signature Glucose 106 (H) 65 - 99 [facility] Fasting mg/dL [facility] Comment: ?Fasting* Glucose Interpretive C [...] of Diabetes Mellitus, Position Statement from the [place] [employer]. ??Diabete s Care, Volume 33, Supplement 1, Jul 2009 BUN 14 10 - 20 mg/dL [facility]ORY Creatinine 1.16 0.80 - 1.50 mg/dL [facility] Sodium 134 (L) 135 - [...] estions. Chloride 99 98 - 107 mmol/L [facility] CO2 19 (L) 22 - 31 mmol/L [facility] Anion Gap 16 (H) 5 - 15 mmol/L [facility] Calcium 8.9 8.5 - 10.5 mg/dL [facility] Estimated GFR 62 >=60 mL/min/1.73 m?? [facility] Comment: The eGFR was calculated using the CKD-EP I equation. As with all creatinine based estimates of kidney function, eGFR values calculated with the CKD-EPI equation are not accurate in patients wi th acute kidney failure, extremes of body mass or the acutely ill. [email or web address]INIT[facility]kf eGFR 72 >=60 mL/min/1.73 m?? [facility] Comment: The eGFR was calculated using the CKD-EP I equation. As with all creatinine based estimates of kidney function, eGFR values calculated with the CKD-EPI equation are not accurate in patients wi th acute kidney failure, extremes of body mass or the acutely ill. [email or web address] Specimen Anatomical Collection Method Collection Time Receive d Time (Source) Location / / Volume Laterality Blood specimen 12/08/2019 12:43 0 (specimen) AM EDT 12:52 AM EDT Resulting Agency Comment Spec In Lab Gretchen Yoon MD CHEMISTRY ORDERABLES Performing Organization Address City/State/[place] [address] Heparin (unfractionated) Level (12/08/2019 12:43 AM EDT) athologist Signature Heparin UFH 0.60 IU/mL [facility] Comment: Guidelines for therapeutic unfractionate d [...] Organization Address City/State/[place] [address] Potassium (12/07/2019 8:39 PM EDT) athologist Signature Potassium 4.1 3.5 - 5.0 [facility] mmol/L [facility] Comment: Please note: ??Patients with [...] Lagos MD CHEMISTRY ORDERABLES Performing Organization Address City/[facility]/[place] [address] Potassium (12/07/2019 4:02 PM EDT) P athologist Signature Potassium 4.0 3.5 - 5.0 [place]IA mmol/L [facility] Comment: Please note: ??Patients with [...] Yoon MD CHEMISTRY ORDERABLES Performing Organization Address City/[facility]/[place] [address] (ABNORMAL) Hemogram (12/07/2019 4:02 PM EDT) Analysis Performed At Patho logist Time Signature WBC 17.4 (H) 4.0 - 9.5 [place] OLIVIA x10(3)/[facility] LABORATORY RBC 4.58 4.58 - [place] OLIVIA 5.54 [facility] x10(6)/[facility] LABORATORY Hemoglobin 13.5 (L) 13.7 - MELINA OLIVIA 16.5 gm/dL [facility] LABORATORY Hematocrit 40.8 40.5 - MELINA OLIVIA 48.5 % [facility] LABORATORY MCV 89.1 82.9 - MELINA OLIVIA 93.1 [facility] LABORATORY MCH 29.5 27.5 - MELINA OLIVIA 32.[address] [facility] LABOR[facility] MCHC 33.1 32.0 - MELINA OLIVIA 35.7 gm/dL [facility] LAB[facility] Platelets 238 145 - 357 MELINA OLIVIA x10(3)/[facility] LABORATORY RDWSD 48.8 (H) 36.0 - MELINA OLIVIA 45.0 [facility] LABORATORY RDWCV 15.0 (H) 11.4 - [facility] 13.8 % [facility] LABORATORY MPV 12.2 7.6 - 12.9 [facility] LABORATORY nRBC % Auto 0.0 % [facility] LABORATORY nRBC Abs Auto 0.000 0.000 - MELINA MARSHOLIVIA 0.000 [facility] x10(3)/[facility] LABORATORY Specimen Anatomical Collection Method Collection Time Receive d Time (Source) Location / / Volume Laterality Blood specimen 12/07/2019 4:02 PM 020 4:08 (specimen) EDT PM EDT Resulting Agency Comment Spec In Lab Gretchen Yoon MD HEMATOLOGY ORDERABLES Performing Organization Address City/[facility] [place] [address] EKG 12 Lead (12/07/2019 [...] (Bezet) Calculated P -12 degrees MUSE SYSTEM [place] Calculated R 10 degrees MUSE SYSTEM [place] Calculated T -138 degrees MUSE SYSTEM [place] INTERPRETATION Supraventricular tachycardia MUSE SYSTEM Low voltage [...] athologist Signature Potassium 4.2 3.5 - 5.0 [facility] mmol/L [facility] LABORATORY Comment: Please note: ??Patients with [...] Lagos MD CHEMISTRY ORDERABLES Performing Organization Address City/[facility] [place] [address] Heparin (unfractionated) Level (12/07/2019 11:43 AM EDT) athologist Signature Heparin UFH 0.59 IU/mL [facility] LABORATORY Comment: Guidelines for therapeutic unfractionate d [...] Lagos MD HEMATOLOGY ORDERABLES Performing Organization Address [facility]/[place] [address] Heparin (unfractionated) Level (12/07/2019 5:20 AM EDT) P athologist Signature Heparin UFH 0.53 IU/mL [facility] LABORATORY Comment: Guidelines for therapeutic unfractionate d [...] Organization Address City/State/[place] [address] (ABNORMAL) Differential, Automated (12/07/2019 5:20 AM EDT) Patholo gist Method Time Signature Neutrophils % 62.4 % [facility] LABORATORY Neutr Abs (ANC) 5.46 1.70 - [facility] 6.10 [facility] x10(3)/[facility] LABORATORY Lymphocytes % 20.3 % [facility] LABORATORY Lymphocytes Abs 1.8 0.9 - 3.2 [facility] x10(3)/[facility] LABORATORY Monocytes % 11.0 % [facility] LABORATORY Monocyte Abs 1.0 (H) 0.3 - 0.9 [facility] x10(3)/[facility] LABORATORY Eosinophils % 4.5 % [facility] LABORATORY Eosinophils Abs 0.4 0.0 - 0.4 [facility] x10(3)/[facility] LABORATORY Basophils % 0.9 % [facility] LABORATORY Basophils Abs 0.1 0.0 - 0.1 [facility] x10(3)/[facility] LABORATORY Immature Gran % 0.90 % [facility] LABORATORY Comment: Immature granulocytes(IG's)percentage an [...] Organization Address City/State/ZIP Code Phon e Number [place] [id number] HOSPITAL LABORATORY Drive (ABNORMAL) Hemogram (12/07/2019 5:20 AM EDT) Analysis Performed At Patho logist Time Signature WBC 8.7 4.0 - 9.5 [facility] x10(3)/[facility] LABORATORY RBC 4.20 (L) 4.58 - [facility] 5.54 [facility] x10(6)/[facility] LABORATORY Hemoglobin 12.3 (L) 13.7 - [facility] 16.5 gm/dL [facility] LAB[facility]ORY Hematocrit 37.4 (L) 40.5 - [facility] % [facility] MCV 89.0 82.9 - [facility] 93[facility] [facility] MCH 29.3 27.5 - [facility] 32.[address] [facility] LABORATORY MCHC 32.9 32.0 - MELINA MONAE 35.7 gm/dL [facility] LABORATORY Platelets 181 145 - 357 MELINA MONAE x10(3)/[facility] LABORATORY RDWSD 47.7 (H) 36.0 - MELINA MONAE 45.0 [facility] LABORATORY RDWCV 14.8 (H) 11.4 - [facility] OLIVIA 13.8 % [facility] LABORATORY MPV 12.3 7.6 - 12.9 MELINA OLIVIA [facility] LABORATORY nRBC % Auto 0.0 % [facility] LABORATORY nRBC Abs Auto 0.000 0.000 - MELINA MONAE 0.000 [facility] x10(3)/[facility] LABORATORY Specimen Anatomical Collection Method Collection Time Receive d Time (Source) Location / / Volume Laterality Blood specimen 12/07/2019 5:20 AM 020 5:37 (specimen) EDT AM EDT Resulting Agency Comment Spec In Lab Riki Stevens MD HEMATOLOGY ORDERABLES Performing Organization Address City/State/ZIP Code Phon e Number [address] Magnesium (12/07/2019 5:20 AM EDT) P athologist Signature Magnesium 0.89 0.69 - 1.07 [facility] mmol/L [facility] LABORATORY Specimen Anatomical Collection Method Collection Time Receive d Time (Source) Location / / Volume Laterality Blood specimen 12/07/2019 5:20 AM 020 5:37 (specimen) EDT AM EDT Resulting Agency Comment Spec In Lab Gretchen Yoon MD CHEMISTRY ORDERABLES Performing Organization Address City/State/ZIP Code Phon e Number [address] (ABNORMAL) BMP w/fasting Glucose (12/07/2019 5:20 AM EDT) P athologist Signature Glucose 100 (H) 65 - 99 [facility] Fasting mg/dL [facility] LABORATORY Comment: ?Fasting* Glucose Interpretive C [...] of Diabetes Mellitus, Position Statement from the [place] [employer]. ??Diabete s Care, Volume 33, Supplement 1, Jul 2009 BUN 14 10 - 20 mg/dL [facility] LABORATORY Creatinine 0.83 0.80 - 1.50 mg/dL [facility] LABORATORY Sodium 135 135 - 145 [...] estions. Chloride 101 98 - 107 mmol/L [facility] LABORATORY CO2 20 (L) 22 - 31 mmol/L [facility] LABORATORY Anion Gap 14 5 - 15 mmol/L [facility] LABORATORY Calcium 8.8 8.5 - 10.5 mg/dL [facility] LABORATORY Estimated GFR 87 >=60 mL/min/1.73 m?? [facility] LABORATORY Comment: The eGFR was calculated using the CKD-EP I equation. As with all creatinine based estimates of kidney function, eGFR values calculated with the CKD-EPI equation are not accurate in patients wi th acute kidney failure, extremes of body mass or the acutely ill. [email or web address] eGFR 101 >=60 mL/min/1.73 m?? [facility] LABORATORY Comment: The eGFR was calculated using the CKD-EP I equation. As with all creatinine based estimates of kidney function, eGFR values calculated with the CKD-EPI equation are not accurate in patients wi th acute kidney failure, extremes of body mass or the acutely ill. [email or web address] Specimen Anatomical Collection Method Collection Time Receive d Time (Source) Location / / Volume Laterality Blood specimen 12/07/2019 5:20 AM 020 5:37 (specimen) EDT AM EDT Resulting Agency Comment Spec In Lab Gretchen Yoon MD CHEMISTRY ORDERABLES Performing Organization Address City/[facility] [place] [address] Heparin (unfractionated) Level (12/06/2019 10:14 PM EDT) athologist Signature Heparin UFH 0.29 IU/mL [facility] LABORATORY Comment: Guidelines for therapeutic unfractionate d [...] Lagos MD HEMATOLOGY ORDERABLES Performing Organization Address City/[facility]/[place] [address] Head wo Contrast [...] For questions regarding this report, please contact [facility] number below. ? Electronically signed by: Merari Collins [facility] ([phone]), at 12/06/2019 10:06 PM Narrative 12/06/2019 10:06 [...] number below. Electronically signed by: Merari Collins [facility] ([phone]), at 12/06/2019 10:06 PM Paris Lagos MD IMG CT ORDERABLES (ABNORMAL) Hemogram (12/06/2019 4:20 PM EDT) Analysis Performed At Patho logist Time Signature WBC 10.4 (H) 4.0 - 9.5 [facility] x10(3)/[facility] LABORATORY RBC 4.32 (L) 4.58 - [facility] OLIVIA 5.54 [facility] x10(6)/[facility] LABORATORY Hemoglobin 12.5 (L) 13.7 - [facility] g[facility]/dL [facility] Hematocrit 38.4 (L) 40.5 - [facility] 48.5 % [facility] MCV 88.9 82.9 - [facility] 93.1 [facility] LABORATORY MCH 28.9 27.5 - MELINA OLIVIA 32.[address] [facility] LAB[facility]ATORY MCHC 32.6 32.0 - [facility] 35.7 gm/dL [facility] Platelets 194 145 - 357 [facility] x10(3)/[facility] LABORATORY RDWSD 46.9 (H) 36.0 - [facility]0 [facility] LABORATORY RDWCV 14.6 (H) 11.4 - [facility] OLIVIA 13.8 % [facility] LABORATORY MPV 11.9 7.6 - 12.9 [facility] OLIVIA [facility] LABORATORY nRBC % Auto 0.0 % [facility] LABORATORY nRBC Abs Auto 0.000 0.000 - [facility] OLIVIA 0.000 [facility] x10(3)/[facility] LABORATORY Specimen Anatomical Collection Method Collection Time Receive d Time (Source) Location / / Volume Laterality Blood specimen 12/06/2019 4:20 PM 020 4:31 (specimen) EDT PM EDT Resulting Agency Comment Spec In Lab Gretchen Yoon MD HEMATOLOGY ORDERABLES Performing Organization Address City/State/[place] [address] Heparin (unfractionated) Level (12/06/2019 4:20 PM EDT) P athologist Signature Heparin UFH 0.30 IU/mL [facility] LABORATORY Comment: Guidelines for therapeutic unfractionate d [...] Organization Address City/State/[place] [address] Heparin (unfractionated) Level (12/06/2019 10:02 AM EDT) athologist Signature Heparin UFH <0.04 IU/mL [facility] LABORATORY Comment: Guidelines for therapeutic unfractionate d [...] Organization Address City/State/ZIP Code Phon e Number [address] Magnesium (12/06/2019 3:36 AM EDT) P athologist Signature Magnesium 0.86 0.69 - 1.07 [facility] mmol/L [facility] LABORATORY Specimen Anatomical Collection Method Collection Time Receive d Time (Source) Location / / Volume Laterality Blood specimen 12/06/2019 3:36 AM 020 3:45 (specimen) EDT AM EDT Resulting Agency Comment Spec In Lab Gretchen Yoon MD CHEMISTRY ORDERABLES Performing Organization Address City/State/[place] [address] (ABNORMAL) BMP w/fasting Glucose (12/06/2019 3:36 AM EDT) P athologist Signature Glucose 103 (H) 65 - 99 [facility] Fasting mg/dL [facility] LABORATORY Comment: ?Fasting* Glucose Interpretive C [...] of Diabetes Mellitus, Position Statement from the [place] [employer]. ??Diabete s Care, Volume 33, Supplement 1, Jul 2009 BUN 20 10 - 20 mg/dL [facility] LABORATORY Creatinine 0.88 0.80 - 1.50 mg/dL [facility] LABORATORY Sodium 136 135 - 145 [...] estions. Chloride 103 98 - 107 mmol/L [facility]OR[facility] CO2 19 (L) 22 - 31 mmol/L [facility]OR[facility] Anion Gap 14 5 - 15 mmol/L [facility] LABORATORY Calcium 8.7 8.5 - 10.5 mg/dL [facility] LABORATORY Estimated GFR 85 >=60 mL/min/1.73 m?? [facility] LABORATORY Comment: The eGFR was calculated using the CKD-EP I equation. As with all creatinine based estimates of kidney function, eGFR values calculated with the CKD-EPI equation are not accurate in patients wi th acute kidney failure, extremes of body mass or the acutely ill. [email or web address] [email or web address] eGFR 99 >=60 mL/min/1.73 m?? [facility] LABORATORY Comment: The eGFR was calculated using the CKD-EP I equation. As with all creatinine based estimates of kidney function, eGFR values calculated with the CKD-EPI equation are not accurate in patients wi th acute kidney failure, extremes of body mass or the acutely ill. [email or web address] [email or web address] Specimen Anatomical Collection Method Collection Time Receive d Time (Source) Location / / Volume Laterality Blood specimen 12/06/2019 3:36 AM 020 3:45 (specimen) EDT AM EDT Resulting Agency Comment Spec In Lab Gretchen Yoon MD CHEMISTRY ORDERABLES Performing Organization Address City/State/[place] [address] (ABNORMAL) Hemogram (12/06/2019 3:36 AM EDT) Analysis Performed At Patho logist Time Signature WBC 9.2 4.0 - 9.5 [facility] x[facility](3[facility] LABORATORY RBC 3.99 (L) 4.58 - MELINA OLIVIA 5.54 [facility] x10(6)/[facility] LABORATORY Hemoglobin 11.9 (L) 13.7 - MELINA OLIVIA 16.5 gm/dL [facility] LABORATORY Hematocrit 35.5 (L) 40.5 - [facility] MCV 89.0 82.9 - [facility] 93.1 [facility] LABORATORY MCH 29.8 27.5 - MELINA OLIVIA 32.[address] [facility] LABORATORY MCHC 33.5 32.0 - MELINA OLIVIA 35.7 gm/dL [facility] LABOR[facility]ORY Platelets 164 145 - 357 [facility] x10(3)/[facility] LABORATORY RDWSD 47.6 (H) 36.0 - MELINA OLIVIA 45.0 [facility] LABORATORY RDWCV 14.7 (H) 11.4 - [facility] OLIVIA 13.8 % [facility] LABORATORY MPV 11.9 7.6 - 12.9 [facility] LABORATORY nRBC % Auto 0.0 % [facility] LABORATORY nRBC Abs Auto 0.000 0.000 - MELINA OLIVIA 0.000 [facility] x10(3)/[facility] LABORATORY Specimen Anatomical Collection Method Collection Time Receive d Time (Source) Location / / Volume Laterality Blood specimen 12/06/2019 3:36 AM 020 3:45 (specimen) EDT AM EDT Resulting Agency Comment Spec In Lab Gretchen Yoon MD HEMATOLOGY ORDERABLES Performing Organization Address City/[facility]/[place] [address] (ABNORMAL) Differential, Automated (12/05/2019 10:52 PM EDT) [facility] Method Time Signature Neutrophils % 61.9 % [facility] LABORATORY Neutr Abs (ANC) 6.02 1.70 - [facility] 6.10 [facility] x10(3)/[facility] LABORATORY Lymphocytes % 22.4 % [facility] LABORATORY Lymphocytes Abs 2.2 0.9 - 3.2 [facility] x10(3)/[facility] LABORATORY Monocytes % 10.4 % [facility] LABORATORY Monocyte Abs 1.0 (H) 0.3 - 0.9 [facility] x10(3)/[facility] LABORATORY Eosinophils % 4.1 % [facility] LABORATORY Eosinophils Abs 0.4 0.0 - 0.4 [facility] x10(3)/[facility] LABORATORY Basophils % 0.7 % [facility] LABORATORY Basophils Abs 0.1 0.0 - 0.1 [facility] x10(3)/[facility] LABORATORY Immature Gran % 0.50 % [facility] LABORATORY Comment: Immature granulocytes(IG's)percentage an [...] Organization Address City/State/[place] [address] (ABNORMAL) Hemogram (12/05/2019 10:52 PM EDT) Analysis Performed At [facility] logist Time Signature WBC 9.7 (H) 4.0 - 9.5 [facility] x10(3)/[facility] LABORATORY RBC 4.07 (L) 4.58 - MELINA WHITTENCOCK 5.54 [facility] x10(6)/[facility] LABORATORY Hemoglobin 11.9 (L) 13.7 - MELINA WHITTENCOCK 16.5 gm/dL [facility] LABOR[facility]ORY Hematocrit 36.4 (L) 40.5 - MELINA [place]ITTENC[place] 48.5 % [facility] LABORATORY MCV 89.4 82.9 - [facility] OLIVIA 93.1 [facility] LABORATORY MCH 29.2 27.5 - MELINA WHITTENCOCK 32.[address] [facility] LABORATORY MCHC 32.7 32.0 - MELINA [place]ITT[place] 35.7 gm/dL [facility] LABORATORY Platelets 167 145 - 357 [facility] x10(3)/[facility] LABORATORY RDWSD 47.7 (H) 36.0 - MELINA WHITTENCOCK 45.0 [facility] RDWCV 14.6 (H) 11.4 - [facility] 13.8 % [facility] LABORATORY MPV 12.1 7.6 - 12.9 [facility] LABORATORY nRBC % Auto 0.0 % [facility] LABORATORY nRBC Abs Auto 0.000 0.000 - [facility] OLIVIA 0.000 [facility] x10(3)/[facility] LABORATORY Specimen Anatomical Collection Method Collection Time Receive d Time (Source) Location / / Volume Laterality Blood specimen 12/05/2019 10:52 0 (specimen) PM EDT 10:59 PM EDT Resulting Agency Comment Spec In Lab Mandi Barrera MD HEMATOLOGY ORDERABLES Performing Organization Address City/State/[place] [address] Heparin (unfractionated) Level (12/05/2019 10:52 PM EDT) P athologist Signature Heparin UFH <0.04 IU/mL [facility] LABORATORY Comment: Guidelines for therapeutic unfractionate d [...] Organization Address City/State/[place] [address] MRI Brain wwo Contrast [...] number below. Electronically signed by: ALBA Jenkins Replaced By [facility] ([phone]), at 12/05/2019 10:02 PM Paris Lagos MD IMG MRI ORDERABLES (ABNORMAL) Hemogram (12/05/2019 1:00 PM EDT) Analysis Performed At Patho logist Time Signature WBC 8.7 4.0 - 9.5 [facility] x10(3)/[facility] LABORATORY RBC 4.17 (L) 4.58 - [facility] 5.54 [facility] x10(6)/[facility] LABORATORY Hemoglobin 12.4 (L) 13.7 - [facility].5 gm/dL [facility] Hematocrit 37.0 (L) 40.5 - [facility] 48.5 % [facility] MCV 88.7 82.9 - [facility] 93.1 [facility] LABORATORY MCH 29.7 27.5 - [facility] 32.[address] [facility] LAB[facility]ATORY MCHC 33.5 32.0 - [facility] 35.7 gm/dL [facility] Platelets 173 145 - 357 [facility] x10(3)/[facility] LABORATORY RDWSD 47.3 (H) 36.0 - [facility] 45.0 [facility] LABORATORY RDWCV 14.6 (H) 11.4 - [facility] 13.8 % [facility] LABORATORY MPV 12.1 7.6 - 12.9 [facility] LABORATORY nRBC % Auto 0.0 % [facility] LABORATORY nRBC Abs Auto 0.000 0.000 - [facility] 0.000 [facility] x10(3)/[facility] LABORATORY Specimen Anatomical Collection Method Collection Time Receive d Time (Source) Location / / Volume Laterality Blood specimen 12/05/2019 1:00 PM 020 1:13 (specimen) EDT PM EDT Resulting Agency Comment Spec In Lab Gretchen Yoon MD HEMATOLOGY ORDERABLES Performing Organization Address City/State/[place] [address] EKG 12 Lead (12/05/2019 10:52 AM EDT) Component Value Ref Range Test Analysis Performed Pathologis t Method Time At Signature Ventricular rate 72 BPM MUSE SYSTEM Atrial Rate 72 BPM MUSE SYSTEM P-R Interval 138 ms MUSE SYSTEM QRS Duration 96 ms MUSE SYSTEM Q-T Interval 396 ms MUSE SYSTEM QTC Calculated 433 ms MUSE SYSTEM (Bezet) Calculated P [place] 65 degrees MUSE SYSTEM Calculated R [place] 13 degrees MUSE SYSTEM Calculated T [place] 0 degrees MUSE SYSTEM INTERPRETATION Sinus rhythm Occasional Premature ventricular complexe s MUSE SYSTEM Possible Inferior infarct (cited on or before 29-NOV-2019) Abnormal ECG When compared with ECG of 04-DEC-2019 10:43, Sinus rhythm has replaced Atrial fibrillation Vent. rate has decreased BY ??86 BPM Confirmed by MD Ceja Daniel ([id number]) on 12/05/2019 3:55:22 PM Specimen Anatomical Collection Method Collection Time Receive d Time (Source) Location / / Volume Laterality 12/05/2019 10:52 12/05/2019 3:55 AM EDT PM EDT Paris Lagos MD ECG ORDERABLES Performing Organization Address City/State/ZIP Code Phon e Number MUSE SYSTEM Duplex Study for DVT, Bilat legs (12/05/2019 7:00 AM EDT) Component Value Ref Test Analysis Performed At [facility] Range Method Time Signature VB Text Department: Vascular Surgery Lab VASCUBASE Report Patient: [id number] (ANGEL LUIS SALINAS) CPT: 58831 ICD10: I26.99 Referring Physician: GRETCHEN YOON ?? [...] athologist Signature Magnesium 0.87 0.69 - 1.07 [facility] mmol/L [facility] LABORATORY Specimen Anatomical Collection Method Collection Time Receive d Time (Source) Location / / Volume Laterality Blood specimen 12/05/2019 4:18 AM 020 4:31 (specimen) EDT AM EDT Resulting Agency Comment Spec In Lab Gretchen Yoon MD CHEMISTRY ORDERABLES Performing Organization Address City/[facility]/[place] [address] (ABNORMAL) BMP w/fasting Glucose (12/05/2019 4:18 AM EDT) P athologist Signature Glucose 104 (H) 65 - 99 [facility] Fasting mg/dL [facility] LAB[facility]ORY Comment: ?Fasting* Glucose Interpretive C [...] of Diabetes Mellitus, Position Statement from the [place] [employer]. ??Diabete s Care, Volume 33, Supplement 1, Jul 2009 BUN 21 (H) 10 - 20 mg/dL [facility] LABORATORY Creatinine 1.02 0.80 - 1.50 mg/dL [facility] LABORATORY Sodium 136 135 - 145 [...] estions. Chloride 103 98 - 107 mmol/L [facility] CO2 21 (L) 22 - 31 mmol/L [facility] Anion Gap 12 5 - 15 mmol/L [facility] LABOR[facility]ORY Calcium 8.8 8.5 - 10.5 mg/dL [facility] Estimated GFR 73 >=60 mL/min/1.73 m?? [facility] LABORAT[facility] Comment: The eGFR was calculated using the CKD-EP I equation. As with all creatinine based estimates of kidney function, eGFR values calculated with the CKD-EPI equation are not accurate in patients wi th acute kidney failure, extremes of body mass or the acutely ill. [email or web address] eGFR 84 >=60 mL/min/1.73 m?? [facility] Comment: The eGFR was calculated using the CKD-EP I equation. As with all creatinine based estimates of kidney function, eGFR values calculated with the CKD-EPI equation are not accurate in patients wi th acute kidney failure, extremes of body mass or the acutely ill. [email or web address] [email or web address] Specimen Anatomical Collection Method Collection Time Receive d Time (Source) Location / / Volume Laterality Blood specimen 12/05/2019 4:18 AM 020 4:31 (specimen) EDT AM EDT Resulting Agency Comment Spec In Lab Gretchen Yoon MD CHEMISTRY ORDERABLES Performing Organization Address City/State/[place] [address] (ABNORMAL) Hemogram (12/05/2019 4:18 AM EDT) Analysis Performed At Patho logist Time Signature WBC 8.6 4.0 - 9.5 [facility] x10(3)/[facility] LABORATORY RBC 4.28 (L) 4.58 - [place] OLIVIA 5.54 [facility] x10(6)/[facility] LABORATORY Hemoglobin 12.4 (L) 13.7 - [facility] 16.5 gm/dL [facility] Hematocrit 37.3 (L) 40.5 - [facility] 48.5 % [facility] MCV 87.1 82.9 - [facility] 93.1 [facility] LABORATORY MCH 29.0 27.5 - [facility] 32.1 pg [facility] MCHC 33.2 32.0 - [facility] 35.7 gm/dL [facility] Platelets 163 145 - 357 [facility] x10(3)/[facility] LABORATORY RDWSD 46.4 (H) 36.0 - [facility] 45.0 [facility] LABORATORY RDWCV 14.4 (H) 11.4 - [facility] 13.8 % [facility] MPV 11.7 7.6 - 12.9 [facility] LABORATORY nRBC % Auto 0.0 % [facility] nRBC Abs Auto 0.000 0.000 - [facility] 0.000 [facility] x10(3)/[facility] LABORATORY Specimen Anatomical Collection Method Collection Time Receive d Time (Source) Location / / Volume Laterality Blood specimen 12/05/2019 4:18 AM 020 4:31 (specimen) EDT AM EDT Resulting Agency Comment Spec In Lab Gretchen Yoon MD HEMATOLOGY ORDERABLES Performing Organization Address City/State/[place] [address] Cardiac for Morphology [...] For questions regarding this report, please contact [facility] below. ? Electronically signed by: Roselyn Luciano [facility] ([phone]), at 12/04/2019 6:16 PM Narrative 12/04/2019 6:16 [...] from neck/greatest puja meter to back wall: ERITREAN 91, CAU 13: ??19 mm CORTES ??1, [...] from neck/greatest puja meter to back wall: ERITREAN 91, CAU 13: 19 mm CORTES 1, [...] number below. Electronically signed by: Roselyn Luciano, [facility] ([phone]), at 12/04/2019 6:16 PM Gretchen Yoon MD IMG CT ORDERABLES (ABNORMAL) Hemogram (12/04/2019 12:55 PM EDT) Analysis Performed At Patho logist Time Signature WBC 8.9 4.0 - 9.5 [facility] OLIVIA x10(3)/[facility] LABORATORY RBC 4.69 4.58 - [facility] OLIVIA 5.54 [facility] x10(6)/[facility] LABORATORY Hemoglobin 13.5 (L) 13.7 - [facility] 16.5 gm/dL [facility] Hematocrit 41.7 40.5 - [facility] OLIVIA 48.5 % [facility] MCV 88.9 82.9 - [facility] [address] [facility] MCH 28.8 27.5 - [place] OLIVIA 32.[address] [facility] MCHC 32.4 32.0 - [facility] OLIVIA 35.7 gm/dL [facility] Platelets 196 145 - 357 [facility] x10(3)/[facility] LABORATORY RDWSD 46.7 (H) 36.0 - [place] OLIVIA 45.0 [facility] LABORATORY RDWCV 14.5 (H) 11.4 - [place] OLIVIA 13.8 % [facility] MPV 12.1 7.6 - 12.9 MELINA MONAE [facility] LABORATORY nRBC % Auto 0.0 % [facility] nRBC Abs Auto 0.000 0.000 - MEL[place] MONAE 0.000 [facility] x10(3)/[facility] LABORATORY Specimen Anatomical Collection Method Collection Time Receive d Time (Source) Location / / Volume Laterality Blood specimen 12/04/2019 12:55 0 1:06 (specimen) PM EDT PM EDT Resulting Agency Comment Spec In Lab Gretchen Yoon MD HEMATOLOGY ORDERABLES Performing Organization Address City/[facility]/[place]IP [place] [address] EKG 12 Lead (12/04/2019 10:43 AM EDT) Component Value Ref Range Test Analysis Performed Pathologis t Method Time At Signature Ventricular rate 158 BPM MUSE SYSTEM Atrial Rate 102 BPM MUSE SYSTEM QRS Duration 92 ms MUSE SYSTEM Q-T Interval 294 ms MUSE SYSTEM QTC Calculated 476 ms MUSE SYSTEM (Bezet) Calculated R [place] 17 degrees MUSE SYSTEM Calculated T [place] 90 degrees MUSE SYSTEM INTERPRETATION Atrial fibrillation with rapid ventricular response MUSE SYSTEM Possible Inferior infarct (cited on or before 29-NOV-2019) Abnormal ECG When compared with ECG of 30-NOV-2019 21:07, Atrial fibrillation has replaced Sinus rhythm Vent. rate has increased BY ??65 BPM Confirmed by MD Ceja Daniel ([id number]) on 12/05/2019 8:59:44 AM Specimen Anatomical Collection Method Collection Time Receive d Time (Source) Location / / Volume Laterality 12/04/2019 10:43 12/05/2019 8:59 AM EDT AM EDT Gretchen Yoon MD ECG ORDERABLES Performing Organization Address City/State/ZIP Code Phon e Number MUSE SYSTEM (ABNORMAL) Magnesium (12/04/2019 4:28 AM EDT) P athologist Signature Magnesium 1.17 (H) 0.69 - 1.07 [facility] mmol/L [facility] Specimen Anatomical Collection Method Collection Time Receive d Time (Source) Location / / Volume Laterality Blood specimen 12/04/2019 4:28 AM 020 4:40 (specimen) EDT AM EDT Resulting Agency Comment Spec In Lab Gretchen Yoon MD CHEMISTRY ORDERABLES Performing Organization Address City/State/[place] [address] (ABNORMAL) BMP w/fasting Glucose (12/04/2019 4:28 AM EDT) athologist Signature Glucose 108 (H) 65 - 99 [facility] Fasting mg/dL [facility] Comment: ?Fasting* Glucose Interpretive C [...] of Diabetes Mellitus, Position Statement from the [place] [employer]. ??Diabete s Care, Volume 33, Supplement 1, Jul 2009 BUN 19 10 - 20 mg/dL [facility] Creatinine 0.89 0.80 - 1.50 mg/dL [facility] Sodium 135 135 - 145 [...] estions. Chloride 104 98 - 107 mmol/L [facility] CO2 19 (L) 22 - 31 mmol/L [facility] Anion Gap 12 5 - 15 mmol/L [facility] Calcium 8.5 8.5 - 10.5 mg/dL [facility] Estimated GFR 85 >=60 mL/min/1.73 m?? [facility] Comment: The eGFR was calculated using the CKD-EP I equation. As with all creatinine based estimates of kidney function, eGFR values calculated with the CKD-EPI equation are not accurate in patients wi th acute kidney failure, extremes of body mass or the acutely ill. [email or web address]k eGFR 98 >=60 mL/min/1.73 m?? [facility] Comment: The eGFR was calculated using the CKD-EP I equation. As with all creatinine based estimates of kidney function, eGFR values calculated with the CKD-EPI equation are not accurate in patients wi th acute kidney failure, extremes of body mass or the acutely ill. [email or web address] [email or web address] Specimen Anatomical Collection Method Collection Time Receive d Time (Source) Location / / Volume Laterality Blood specimen 12/04/2019 4:28 AM 020 4:40 (specimen) EDT AM EDT Resulting Agency Comment Spec In Lab Gretchen Yoon MD CHEMISTRY ORDERABLES Performing Organization Address City/State/[place] [address] (ABNORMAL) Hemogram (12/04/2019 4:28 AM EDT) Analysis Performed At Patho logist Time Signature WBC 7.8 4.0 - 9.5 [facility] x10(3)/[facility] LABORATORY RBC 4.10 (L) 4.58 - [facility] 5.54 [facility] x10(6)/[facility] LABORATORY Hemoglobin 12.0 (L) 13.7 - [facility] 16.5 gm/dL [facility] Hematocrit 36.5 (L) 40.5 - [facility] 48.5 % [facility] MCV 89.0 82.9 - [facility] [address] [facility] MCH 29.3 27.5 - M[place] MONAE 32.[address] [facility] MCHC 32.9 32.0 - M[place] MONAE 35.7 gm/dL [facility] Platelets 151 145 - 357 M[place] MARSHOLIVIA x10(3)/[facility] LABORATORY RDWSD 46.9 (H) 36.0 - [place] MONAE 45.0 [facility] LABORATORY RDWCV 14.4 (H) 11.4 - M[place] MONAE 13.8 % [facility] MPV 12.2 7.6 - 12.[address] [facility] nRBC % Auto 0.0 % [facility] nRBC Abs Auto 0.000 0.000 - [place] MONAE 0.000 [facility] x10(3)/[facility] LABORATORY Specimen Anatomical Collection Method Collection Time Receive d Time (Source) Location / / Volume Laterality Blood specimen 12/04/2019 4:28 AM 020 4:40 (specimen) EDT AM EDT Resulting Agency Comment Spec In Lab Gretchen Yoon MD HEMATOLOGY ORDERABLES Performing Organization Address City/[facility]/ZIP Code Phon e Number [address] Potassium (12/03/2019 7:55 PM EDT) athologist Signature Potassium 3.9 3.5 - 5.0 [facility] mmol/L [facility] Comment: Please note: ??Patients with [...] Organization Address City/State/ZIP Code Phon e Number [address] Potassium (12/03/2019 1:57 PM EDT) athologist Signature Potassium 3.7 3.5 - 5.0 [place] OLIVIA mmol/L [facility] Comment: Please note: ??Patients with [...] Organization Address City/State/[place] [address] (ABNORMAL) Hemogram (12/03/2019 1:57 PM EDT) Analysis Performed At Patho logist Time Signature WBC 8.8 4.0 - 9.5 [facility] x10(3)/[facility] LABORATORY RBC 4.27 (L) 4.58 - [place] OLIVIA 5.54 [facility] x10(6)/[facility] LABORATORY Hemoglobin 12.5 (L) 13.7 - [place] OLIVIA 16.5 gm/dL [facility] Hematocrit 37.5 (L) 40.5 - [place] OLIVIA 48.5 % [facility] MCV 87.8 82.9 - [place] OLIVIA 93.1 [facility] LABORATORY MCH 29.3 27.5 - [place] OLIVIA 32.[address] [facility] MCHC 33.3 32.0 - [place] OLIVIA 35.7 gm/dL [facility] Platelets 158 145 - 357 [facility] x10(3)/[facility] LABORATORY RDWSD 46.9 (H) 36.0 - [place] OLIVIA 45.0 [facility] LABORATORY RDWCV 14.5 (H) 11.4 - [place] OLIVIA 13.8 % [facility] MPV 12.2 7.6 - 12.9 MELINA OLIVIA [facility] LABORATORY nRBC % Auto 0.0 % [facility] nRBC Abs Auto 0.000 0.000 - [place] OLIVIA 0.000 [facility] x10(3)/[facility] LABORATORY Specimen Anatomical Collection Method Collection Time Receive d Time (Source) Location / / Volume Laterality Blood specimen 12/03/2019 1:57 PM 020 2:21 (specimen) EDT PM EDT Resulting Agency Comment Spec In Lab Gretchen Yoon MD HEMATOLOGY ORDERABLES Performing Organization Address City/State/ZIP Code Phon e Number [address] Magnesium (12/03/2019 4:02 AM EDT) athologist Signature Magnesium 0.79 0.69 - 1.07 [facility] mmol/L [facility] Specimen Anatomical Collection Method Collection Time Receive d Time (Source) Location / / Volume Laterality Blood specimen 12/03/2019 4:02 AM 020 4:16 (specimen) EDT AM EDT Resulting Agency Comment Spec In Lab Gretchen Yono MD CHEMISTRY ORDERABLES Performing Organization Address City/State/[place] [address] (ABNORMAL) BMP w/fasting Glucose (12/03/2019 4:02 AM EDT) P athologist Signature Glucose 100 (H) 65 - 99 [facility] Fasting mg/dL [facility] Comment: ?Fasting* Glucose Interpretive C [...] of Diabetes Mellitus, Position Statement from the [place] [employer]. ??Diabete s Care, Volume 33, Supplement 1, Jul 2009 BUN 17 10 - 20 mg/dL [facility] Creatinine 0.95 0.80 - 1.50 mg/dL [facility] Sodium 136 135 - 145 [...] estions. Chloride 103 98 - 107 mmol/L [facility] CO2 18 (L) 22 - 31 mmol/L [facility] Anion Gap 15 5 - 15 mmol/L [facility] Calcium 8.3 (L) 8.5 - 10.5 mg/dL [facility] Estimated GFR 79 >=60 mL/min/1.73 m?? [facility] Comment: The eGFR was calculated using the CKD-EP I equation. As with all creatinine based estimates of kidney function, eGFR values calculated with the CKD-EPI equation are not accurate in patients wi th acute kidney failure, extremes of body mass or the acutely ill. [email or web address] [email or web address] eGFR 92 >=60 mL/min/1.73 m?? [facility] Comment: The eGFR was calculated using the CKD-EP I equation. As with all creatinine based estimates of kidney function, eGFR values calculated with the CKD-EPI equation are not accurate in patients wi th acute kidney failure, extremes of body mass or the acutely ill. [email or web address] Specimen Anatomical Collection Method Collection Time Receive d Time (Source) Location / / Volume Laterality Blood specimen 12/03/2019 4:02 AM 020 4:16 (specimen) EDT AM EDT Resulting Agency Comment Spec In Lab Gretchen Yoon MD CHEMISTRY ORDERABLES Performing Organization Address City/State/[place] [address] (ABNORMAL) Hemogram (12/03/2019 4:02 AM EDT) Analysis Performed At Patho logist Time Signature WBC 9.1 4.0 - 9.5 [facility] x10(3)/[facility] LABORATORY RBC 4.01 (L) 4.58 - [facility] 5.54 [facility] x10(6)/[facility] LABORATORY Hemoglobin 11.8 (L) 13.7 - [facility] 16.5 gm/dL [facility] Hematocrit 35.6 (L) 40.5 - [facility] 48.5 % [facility] MCV 88.8 82.9 - [facility] 93.1 [facility] LABORATORY MCH 29.4 27.5 - [facility] 32.[address] [facility] MCHC 33.1 32.0 - [facility] 35.7 gm/dL [facility] Platelets 130 (L) 145 - 357 [facility] x10(3)/[facility] LABORATORY RDWSD 46.6 (H) 36.0 - [facility] 45.0 [facility] LABORATORY RDWCV 14.4 (H) 11.4 - [facility] 13.8 % [facility] MPV 12.4 7.6 - 12.9 [facility] LABORATORY nRBC % Auto 0.0 % [facility] nRBC Abs Auto 0.000 0.000 - [facility] 0.000 [facility] x10(3)/[facility] LABORATORY Specimen Anatomical Collection Method Collection Time Receive d Time (Source) Location / / Volume Laterality Blood specimen 12/03/2019 4:02 AM 020 4:16 (specimen) EDT AM EDT Resulting Agency Comment Spec In Lab Gretchen Yoon MD HEMATOLOGY ORDERABLES Performing Organization Address City/State/[place] [address] XR Chest One View [...] Signature WBC 10.6 (H) 4.0 - 9.5 [facility] x10(3)/[facility] LABORATORY RBC 4.00 (L) 4.58 - [facility] 5[facility] x10(6)/[facility] LABORATORY Hemoglobin 11.9 (L) 13.7 - [facility] 16.5 gm/dL [facility] Hematocrit 35.7 (L) 40.5 - [facility] % [facility] MCV 89.3 82.9 - [facility] 93.1 [facility] LABORATORY MCH 29.8 27.5 - [facility] [facility] MCHC 33.3 32.0 - [facility] 35.7 gm/dL [facility] Platelets 120 (L) 145 - 357 [facility] x10(3)/[facility] LABORATORY RDWSD 47.5 (H) 36.0 - [facility] 45[facility]0 [facility] LABORATORY RDWCV 14.6 (H) 11.4 - [facility] % [facility] MPV 12.0 7.6 - 12.9 [facility] LABORATORY nRBC % Auto 0.0 % [facility] nRBC Abs Auto 0.000 0.000 - [facility] 0.000 [facility] x10(3)/[facility] LABORATORY Specimen Anatomical Collection Method Collection Time Receive d Time (Source) Location / / Volume Laterality Blood specimen 12/02/2019 12:50 0 1:22 (specimen) PM EDT PM EDT Resulting Agency Comment Spec In Lab Gretchen Yoon MD HEMATOLOGY ORDERABLES Performing Organization Address City/State/[place] [address] Blue Tube HOLD (12/02/2019 4:55 AM EDT) P athologist Signature Blue Hold Sample in [facility] lab. [facility] Specimen Anatomical Collection Method Collection Time Receive d Time (Source) Location / / Volume Laterality Blood specimen Venous Draw / 12/02/2019 4:55 AM 2019 5:03 (specimen) Unknown EDT AM EDT Darrell Glasgow MD HEMATOLOGY ORDERABLES Performing Organization Address City/State/ZIP Code Phon e Number [address] Magnesium (12/02/2019 4:55 AM EDT) athologist Signature Magnesium 0.85 0.69 - 1.07 [facility] mmol/L [facility] Specimen Anatomical Collection Method Collection Time Receive d Time (Source) Location / / Volume Laterality Blood specimen 12/02/2019 4:55 AM 020 5:02 (specimen) EDT AM EDT Resulting Agency Comment Spec In Lab Gretchen Yoon MD CHEMISTRY ORDERABLES Performing Organization Address City/[facility]/[place] [address] (ABNORMAL) BMP w/fasting Glucose (12/02/2019 4:55 AM EDT) athologist Signature Glucose 114 (H) 65 - 99 [facility] Fasting mg/dL [facility] Comment: ?Fasting* Glucose Interpretive C [...] of Diabetes Mellitus, Position Statement from the [place] [employer]. ??Diabete s Care, Volume 33, Supplement 1, Jul 2009 BUN 13 10 - 20 mg/dL [facility] Creatinine 0.93 0.80 - 1.50 mg/dL [facility] Sodium 135 135 - 145 [...] estions. Chloride 105 98 - 107 mmol/L [facility] CO2 18 (L) 22 - 31 mmol/L [facility] Anion Gap 12 5 - 15 mmol/L [facility] Calcium 8.1 (L) 8.5 - 10.5 mg/dL [facility] Estimated GFR 81 >=60 mL/min/1.73 m?? [facility] Comment: The eGFR was calculated using the CKD-EP I equation. As with all creatinine based estimates of kidney function, eGFR values calculated with the CKD-EPI equation are not accurate in patients wi th acute kidney failure, extremes of body mass or the acutely ill. [email or web address] eGFR 94 >=60 mL/min/1.73 m?? [facility] Comment: The eGFR was calculated using the CKD-EP I equation. As with all creatinine based estimates of kidney function, eGFR values calculated with the CKD-EPI equation are not accurate in patients wi th acute kidney failure, extremes of body mass or the acutely ill. [email or web address] [email or web address] Specimen Anatomical Collection Method Collection Time Receive d Time (Source) Location / / Volume Laterality Blood specimen 12/02/2019 4:55 AM 020 5:02 (specimen) EDT AM EDT Resulting Agency Comment Spec In Lab Gretchen Yoon MD CHEMISTRY ORDERABLES Performing Organization Address City/State/[place] [address] (ABNORMAL) Hemogram (12/02/2019 4:55 AM EDT) Analysis Performed At Patho logist Time Signature WBC 9.3 4.0 - 9.5 [facility] x10(3)/[facility] LABORATORY RBC 3.71 (L) 4.58 - [place] OLIVIA 5.54 [facility] x10(6)/[facility] LABORATORY Hemoglobin 10.8 (L) 13.7 - [facility] 16.5 gm/dL [facility] Hematocrit 33.1 (L) 40.5 - [facility] 48.5 % [facility] MCV 89.2 82.9 - [facility] 93.1 [facility] LABORATORY MCH 29.1 27.5 - [facility] 32.[address] [facility] MCHC 32.6 32.0 - [facility] 35.7 gm/dL [facility] Platelets 93 (L) 145 - 357 [facility] x10(3)/[facility] LABORATORY RDWSD 47.1 (H) 36.0 - [facility] 45.0 [facility] LABORATORY RDWCV 14.6 (H) 11.4 - [facility] 13.8 % [facility] MPV 11.7 7.6 - 12.9 [facility] LABORATORY nRBC % Auto 0.0 % [facility] nRBC Abs Auto 0.000 0.000 - [facility] 0.000 [facility] x10(3)/[facility] LABORATORY Specimen Anatomical Collection Method Collection Time Receive d Time (Source) Location / / Volume Laterality Blood specimen 12/02/2019 4:55 AM 020 5:02 (specimen) EDT AM EDT Resulting Agency Comment Spec In Lab Gretchen Yoon MD HEMATOLOGY ORDERABLES Performing Organization Address City/State/[place] [address] Transfuse 1 unit platelets, [...] For questions regarding this report, please contact [facility] below. ? Electronically signed by: Angel Luis Barboza MD, [facility] ([phone]), at 12/01/2019 8:02 PM Narrative 12/01/2019 8:02 [...] For questions regarding this report, please contact [facility] below. Electronically signed by: Angel Luis Barboza MD, [facility] ([phone]), at 12/01/2019 8:02 PM Gretchen Yoon MD IMG MRI ORDERABLES Prepare Platelets, Apheresis (12/01/2019 6:20 PM EDT) P athologist Signature Dispensed? Yes [facility] HOSPITAL LABORATORY Specimen Anatomical Collection Method Collection Time Receive d Time (Source) Location / / Volume Laterality Blood specimen 12/01/2019 6:20 PM 020 6:18 (specimen) EDT PM EDT Gretchen Yoon MD BLOOD BANK ORDERABLES Performing Organization Address City/State/ZIP Code Phon e Number [place] [id number] HOSPITAL LABORATORY Drive Duplex for DVT, Arm, Unilat (12/01/2019 5:08 PM EDT) Component Value Ref Test Analysis Performed At Patholo gist Range Method Time Signature VB Text Department: Vascular Surgery Lab VASCUBASE Report Patient: [id number] (ANGEL LUIS SALINAS) CPT: 29839 ICD10: R60.0 Referring Physician: GRETCHEN YOON ?? [...] For questions regarding this report, please contact [facility] number below. ? Electronically signed by: Merari Collins [facility] ([phone]), at 12/01/2019 3:53 PM Narrative 12/01/2019 3:53 PM EDT EXAMINATION: CT HEAD WO CONTRAST (GENERIC) CLINICAL HISTORY: Headache, intracranial hemorrhage suspected Serial CT scan: please assess for propag ation of known ICH noted on prior Head CT/imaging. TECHNIQUE: CT head performed without intravenous co ntrast administration. COMPARISON: Head CT 11/30/2019. CT angiogram [place] 11/01. FINDINGS: Ventricles are normal in size. Basal cis terns are patent. Unchanged hyperdense 2.3 x 0.7 x 0.6 cm tubular hemorrhage projecting along the course of the left optic tract (axial [facility] 2 image 16), consistent with intraparenchymal [...] Head CT 11/30/2019. CT angiogram [place] 11/01. FINDINGS: Ventricles are normal [...] Scan, Peripheral Blood (12/01/2019 12:51 PM EDT) [facility] Method Time Signature Plat Estimate Decreased [facility] RBC Morphology Normal [facility] Giant Less than 1 /HPF [facility] Platelets [facility] LABORATORY Specimen Anatomical Collection Method Collection Time Receive d Time (Source) Location / / Volume Laterality Blood specimen 12/01/2019 12:51 0 1:05 (specimen) PM EDT PM EDT Resulting Agency Comment Spec In Lab Riki Stevens MD HEMATOLOGY ORDERABLES Performing Organization Address City/State/[place] [address] (ABNORMAL) Differential, Automated (12/01/2019 12:51 PM EDT) [facility] Method Time Signature Neutrophils % 74.9 % [facility] Neutr Abs (ANC) 6.34 (H) 1.70 - [facility] 6.10 [facility] x10(3)/[facility] LABORATORY Lymphocytes % 11.4 % [facility] Lymphocytes Abs 1.0 0.9 - 3.2 [facility] x10(3)/[facility] LABORATORY Monocytes % 12.4 % [facility] Monocyte Abs 1.0 (H) 0.3 - 0.9 [facility] x10(3)/[facility] LABORATORY Eosinophils % 0.4 % [facility] Eosinophils Abs 0.0 0.0 - 0.4 [facility] x10(3)/[facility] LABORATORY Basophils % 0.4 % [facility] Basophils Abs 0.0 0.0 - 0.1 [facility] x10(3)/[facility] LABORATORY Immature Gran % 0.50 % MELINA [...] Pita Gran Abs 0.04 0.00 - 0.04 x10(3)/[facility] LABORATORY Specimen Anatomical Collection Method Collection Time Receive d Time (Source) Location / / Volume Laterality Blood specimen 12/01/2019 12:51 0 1:05 (specimen) PM EDT PM EDT Resulting Agency Comment Spec In Lab Riki Stevens MD HEMATOLOGY ORDERABLES Performing Organization Address City/State/[place] [address] (ABNORMAL) Hemogram (12/01/2019 12:51 PM EDT) Analysis Performed At Patho logist Time Signature WBC 8.4 4.0 - 9.5 [facility] x10(3)/[facility] LABORATORY RBC 3.69 (L) 4.58 - [facility] 5.54 [facility] x10(6)/[facility] LABORATORY Hemoglobin 10.8 (L) 13.7 - [facility] g[facility]/dL [facility] Hematocrit 32.4 (L) 40.5 - [facility] 48.5 % [facility] MCV 87.8 82.9 - [facility] 93.1 [facility] LABORATORY MCH 29.3 27.5 - [facility] OLIVIA 32.[address] [facility] MCHC 33.3 32.0 - [facility] 35.7 gm/dL [facility] Platelets 72 (L) 145 - 357 [facility] x10(3)/[facility] LABORATORY RDWSD 47.2 (H) 36.0 - [facility] 45.0 [facility] LABORATORY RDWCV 14.6 (H) 11.4 - [facility] 13.8 % [facility] LAB[facility] MPV 12.2 7.6 - 12.9 [facility] LABORATORY nRBC % Auto 0.0 % [facility] nRBC Abs Auto 0.000 0.000 - [facility] 0.000 [facility] x10(3)/[facility] LABORATORY Specimen Anatomical Collection Method Collection Time Receive d Time (Source) Location / / Volume Laterality Blood specimen 12/01/2019 12:51 0 1:05 (specimen) PM EDT PM EDT Resulting Agency Comment Spec In Lab Riki Stevens MD HEMATOLOGY ORDERABLES Performing Organization Address City/[facility]/ZIP Code Phon e Number [address] (ABNORMAL) Coox2 (12/01/2019 11:42 AM EDT) Analysis Performed At Patho logist Time Signature pO2 Coox 30 mmHg [facility] Hgb Blood Gas 11.6 (L) 13.7 - [facility] 16.5 gm/dL [facility] O2HB Coox 60.8 % [facility] COHB Coox 0.6 % [facility] Comment: Nonsmokers: 0.5-1.5% COHB Smokers: Variable, but usually less than 10% Toxic: 20-30% COHB Lethal: Greater than 60% COHB METHB Coox 0.6 <=1.5 % [facility] LABORATORY Source Coox Mixed Venous [facility] Specimen Anatomical Collection Method Collection Time Receive d Time (Source) Location / / Volume Laterality Blood specimen 12/01/2019 11:42 0 (specimen) AM EDT 11:42 AM EDT Gretchen Yoon MD CHEMISTRY ORDERABLES Performing Organization Address City/State/[place] [address] Sedimentation rate (12/01/2019 3:55 AM EDT) P athologist Signature Sed Rate 25 3 - 46 [facility] mm/hr [facility] Comment: Effective June 11, 2019 [...] Winn MD HEMATOLOGY ORDERABLES Performing Organization Address City/[facility]/[place] [address] (ABNORMAL) CRP, acute inflammation (12/01/2019 3:55 AM EDT) P athologist Signature CRP 92.5 (H) <=4.9 mg/L [facility] Specimen Anatomical Collection Method Collection Time Receive d Time (Source) Location / / Volume Laterality Blood specimen Venous Draw / 12/01/2019 3:55 AM 2019 4:06 (specimen) Unknown EDT AM EDT Resulting Agency Comment Spec In Lab Rossy Winn MD CHEMISTRY ORDERABLES Performing Organization Address City/[facility]/[place] [address] ABORH Recheck Status (12/01/2019 3:55 AM EDT) [facility] Method Time Signature ABORH Recheck Order Placed [facility] LABORATORY ABORH Type Complete [facility] LABORATORY Specimen Anatomical Collection Method Collection Time Receive d Time (Source) Location / / Volume Laterality Blood specimen 12/01/2019 3:55 AM 020 4:15 (specimen) EDT AM EDT Resulting Agency Comment Spec In Lab Lewis Gee MD BLOOD BANK ORDERABLES Performing Organization Address City/[facility]/[place] [address] Antibody screen (12/01/2019 3:55 AM EDT) [facility] Method Time Signature Ab Screen Negative [facility] LABORATORY Expires at 12/04/2019 [facility] [id number] on: [facility] Specimen Anatomical Collection Method Collection Time Receive d Time (Source) Location / / Volume Laterality Blood specimen 12/01/2019 3:55 AM 020 4:15 (specimen) EDT AM EDT Resulting Agency Comment Spec In Lab Lewis Gee MD BLOOD BANK ORDERABLES Performing Organization Address City/State/[place] [address] ABO/Rh Typing (12/01/2019 3:55 AM EDT) athologist Signature ABORh Type AB Pos [facility] Specimen Anatomical Collection Method Collection Time Receive d Time (Source) Location / / Volume Laterality Blood specimen 12/01/2019 3:55 AM 020 4:15 (specimen) EDT AM EDT Resulting Agency Comment Spec In Lab Lewis Gee MD BLOOD BANK ORDERABLES Performing Organization Address City/[facility]/[place] [address] (ABNORMAL) Troponin (12/01/2019 3:55 AM EDT) athologist Signature Troponin-T 4.35 (H) 0.00 - [facility] 0.00 ng/mL [facility] Comment: result rechecked-slw The 99th percentile for Troponin T is le ss than 0.01 ng/mL, any detectable cTnT concentration using this assay should be considered elevated. According to the third universal definit ion of myocardial infarction the following criteria with a clinical prese ntation consistent with acute myocardial ischemia meets the diagnosis for a myocardial infarction (LA). Detection of a rise and/or fall of [...] additional sample may be indicated. Reference: Third [place] Definition of Myocardial Infarction. Journal of the [place] [employer] 2012;60:1581-98 Specimen Anatomical Collection Method Collection Time Receive d Time (Source) Location / / Volume Laterality Blood specimen 12/01/2019 3:55 AM 020 4:00 (specimen) EDT AM EDT Resulting Agency Comment Spec In Lab Gretchen Yoon MD CHEMISTRY ORDERABLES Performing Organization Address City/[facility]/ZIP Code Phon e Number [address] Magnesium (12/01/2019 3:55 AM EDT) P athologist Signature Magnesium 0.96 0.69 - 1.07 [facility] mmol/L [facility] Specimen Anatomical Collection Method Collection Time Receive d Time (Source) Location / / Volume Laterality Blood specimen 12/01/2019 3:55 AM 020 4:00 (specimen) EDT AM EDT Resulting Agency Comment Spec In Lab Gretchen Yoon MD CHEMISTRY ORDERABLES Performing Organization Address City/State/[place] [address] (ABNORMAL) BMP w/fasting Glucose (12/01/2019 3:55 AM EDT) P athologist Signature Glucose 148 (H) 65 - 99 [facility] Fasting mg/dL [facility] Comment: ?Fasting* Glucose Interpretive C [...] of Diabetes Mellitus, Position Statement from the [place] [employer]. ??Diabete s Care, Volume 33, Supplement 1, Jul 2009 BUN 11 10 - 20 mg/dL [facility] Creatinine 0.96 0.80 - 1.50 mg/dL [facility] Sodium 132 (L) 135 - [...] estions. Chloride 105 98 - 107 mmol/L [facility] CO2 17 (L) 22 - 31 mmol/L [facility] Anion Gap 10 5 - 15 mmol/L [facility] Calcium 7.6 (L) 8.5 - 10.5 mg/dL [facility] Estimated GFR 78 >=60 mL/min/1.73 m?? [facility] Comment: The eGFR was calculated using the CKD-EP I equation. As with all creatinine based estimates of kidney function, eGFR values calculated with the CKD-EPI equation are not accurate in patients wi th acute kidney failure, extremes of body mass or the acutely ill. [email or web address] eGFR 91 >=60 mL/min/1.73 m?? [facility] Comment: The eGFR was calculated using the CKD-EP I equation. As with all creatinine based estimates of kidney function, eGFR values calculated with the CKD-EPI equation are not accurate in patients wi th acute kidney failure, extremes of body mass or the acutely ill. [email or web address] Specimen Anatomical Collection Method Collection Time Receive d Time (Source) Location / / Volume Laterality Blood specimen 12/01/2019 3:55 AM 020 4:00 (specimen) EDT AM EDT Resulting Agency Comment Spec In Lab Gretchen Yoon MD CHEMISTRY ORDERABLES Performing Organization Address City/State/ZIP Code Phon [place] [address] (ABNORMAL) Hemogram (12/01/2019 3:55 AM EDT) Analysis [facility]formed At [facility] Time Signature WBC 11.0 (H) 4.0 - 9.5 [facility] x10(3)/[facility] LABORATORY RBC 3.46 (L) 4.58 - [facility] 5.54 [facility] x10(6)/[facility] LABORATORY Hemoglobin 10.2 (L) 13.7 - [facility] 16.5 gm/dL [facility] Hematocrit 31.2 (L) 40.5 - [facility] 48.5 % [facility] MCV 90.2 82.9 - [facility] 93.1 [facility] LABORATORY MCH 29.5 27.5 - [facility] 32.[address] [facility] MCHC 32.7 32.0 - [facility] 35.7 gm/dL [facility] Platelets 98 (L) 145 - 357 [facility] x10(3)/[facility] LABORATORY RDWSD 47.9 (H) 36.0 - [facility] 45.0 [facility] LABORATORY RDWCV 14.6 (H) 11.4 - [facility] 13.8 % [facility]ORY MPV 12.3 7.6 - 12.9 [facility] LABORATORY nRBC % Auto 0.0 % [facility] nRBC Abs Auto 0.000 0.000 - [facility] 0.000 [facility] x10(3)/[facility] LABORATORY Specimen Anatomical Collection Method Collection Time Receive d Time (Source) Location / / Volume Laterality Blood specimen 12/01/2019 3:55 AM 020 4:00 (specimen) EDT AM EDT Resulting Agency Comment Spec In Lab Gretchen Yoon MD HEMATOLOGY ORDERABLES Performing Organization Address City/State/[place] [address] (ABNORMAL) BLOOD GAS 2 ARTERIAL (11/30/2019 10:39 PM EDT) Analysis Performed At [facility] Time Signature pH Art 7.45 7.35 - [facility] [address] [facility] pCO2 Art 23 (L) 35 - 45 [facility] LABORATORY pO2 Art 76 (L) 85 - 104 [facility] LABORATORY HCO3 Art 15.3 (L) 20.0 - [facility] 26.0 [facility] mmol/L [facility] LABORATORY BE Art -8.7 (L) -3.0 - 3.0 [facility] mmol/L [facility] Hgb Blood Gas 11.7 (L) 13.7 - [facility] 16.5 gm/dL [facility] O2HB Art 94.2 94.0 - [facility] 97.0 % [facility] COHB Art 0.5 % [facility] Comment: Nonsmokers: 0.5-1.5% COHB Smokers: Variable, but usually less than 10% Toxic: 20-30% COHB Lethal: Greater than 60% COHB METHB Art 0.6 <=1.5 % [facility] LABORATORY Na Whole Blood 133 (L) 135 - 145 mmol/L [facility]OR[facility] K Whole Blood 3.8 3.5 - 5.0 mmol/L [facility] Comment: Please note: Patients with WBC >100,000 may have falsely elevated Potassium levels. Contact the Clinical Chemistry L aboratory if there are any questions. ICa Whole Blood 1.10 (L) 1.15 - 1.33 mmol/L [facility] Comment: Note: ??Total bilirubin higher than 20 m g/dL may lead to falsely low ionized calcium. CL Whole Blood 109 (H) 98 - 107 mmol/L [facility] Gluc Whole Bld 120 65 - 199 mg/dL [facility] Comment: Diabetes: >=200 mg/dL plus symp toms. Lactate WB 0.8 0.5 - 2.2 mmol/L [facility] FIO2 Art 100 % [facility] PF Ratio Art 76 [facility] LABORATORY Specimen Anatomical Collection Method Collection Time Receive d Time (Source) Location / / Volume Laterality Blood specimen 11/30/2019 10:39 0 (specimen) PM EDT 10:39 PM EDT Gretchen Yoon MD CHEMISTRY ORDERABLES Performing Organization Address City/[facility]/[place] [address] EKG 12 Lead (11/30/2019 [...] (Bezet) Calculated P 12 degrees [facility] [place] Calculated R 19 degrees [facility] [place] Calculated T -47 degrees [facility] [place] INTERPRETATION Sinus rhythm with Premature supraventricular complexes [...] Yoon MD ECG ORDERABLES Performing Organization Address City/[facility]/ZIP Code Phon e Number MUSE SYSTEM (ABNORMAL) Urinalysis Microscopic Exam (11/30/2019 8:40 PM EDT) P athologist Signature RBC UA 27 (H) 0 - 3 /HPF [facility] WBC UA 4 (H) 0 - 3 /HPF [facility] Hyaline Cast 3 (H) 0 - 2 /LPF [facility] LABORATORY Specimen (Source) Anatomical Collection Method Collection Time Re ceived Time Location / / Volume Laterality Urine specimen 11/30/2019 8:40 11/30/2019 obtained via PM EDT 10:51 PM EDT indwelling urinary catheter (specimen) Resulting Agency Comment Spec In Lab Rossy Winn MD URINE ORDERABLES Performing Organization Address City/[facility]/[place] [address] (ABNORMAL) Urinalysis with reflex Culture (11/30/2019 8:40 PM EDT) Patholo gist Method Time Signature Glucose UA Negative Negative [facility] mg/dL [facility] Protein UA Negative Negative [facility] mg/dL [facility] Bilirubin UA Negative Negative [facility] mg/dL [facility] Comment: Clinical correlation required for positi ve Urine Bilirubin results as false positive may occur with some drugs and d rug related products. If a false positive is suspected a serum total bili morales should be considered if clinically indicated. Urobilinogen UA Normal Normal mg/dL [facility] pH UA 5.5 5.0 - 8.0 [facility] Blood UA Moderate (A) Negative mg/dL [facility] Ketones UA 40 (A) Negative mg/dL [facility] Nitrite UA Negative Negative [facility] LABOR[facility]ORY Leukocytes UA Trace (A) Negative [facility] LABORATORY Appearance UA Clear Clear [facility] Spec [place] UA 1.026 1.006 - 1.030 [facility] Color UA Yellow Yellow [facility] Culture Reflexed No [facility] Specimen (Source) Anatomical Collection Method Collection Time Re ceived Time Location / / Volume Laterality Urine specimen 11/30/2019 8:40 11/30/2019 obtained via PM EDT 10:51 PM EDT indwelling urinary catheter (specimen) Resulting Agency Comment Spec In Lab Gretchen Yoon MD URINE ORDERABLES Performing Organization Address City/State/[place] [address] (ABNORMAL) pro-Brain Natriuretic Peptide (11/30/2019 8:30 PM EDT) P athologist Signature ProBNP 2,802 (H) <=125 [facility] pg[facility]mL [facility] Specimen Anatomical Collection Method Collection Time Receive d Time (Source) Location / / Volume Laterality Blood specimen Venous Draw / 11/30/2019 8:30 PM 2019 8:36 (specimen) Unknown EDT PM EDT Resulting Agency Comment Spec In Lab Rossy Winn MD CHEMISTRY ORDERABLES Performing Organization Address City/[facility]/ZIP [place] [address] (ABNORMAL) Troponin (11/30/2019 8:30 PM EDT) athologist Signature Troponin-T 5.04 (H) 0.00 - [place] 0.00 ng/mL [facility] Comment: The 99th percentile for Troponin T is le ss than 0.01 ng/mL, any detectable cTnT concentration using this assay should be considered elevated. According to the third universal definit ion of myocardial infarction the following criteria with a clinical prese ntation consistent with acute myocardial ischemia meets the diagnosis for a myocardial infarction (LA). Detection of a rise and/or fall of [...] additional sample may be indicated. Reference: Third [place] Definition of Myocardial Infarction. Journal of the [place] [employer] 2012;60:1581-98 Specimen Anatomical Collection Method Collection Time Receive d Time (Source) Location / / Volume Laterality Blood specimen Venous Draw / 11/30/2019 8:30 PM 2019 8:36 (specimen) Unknown EDT PM EDT Resulting Agency Comment Spec In Lab Rossy Winn MD CHEMISTRY ORDERABLES Performing Organization Address City/[facility]/ZIP [place] [address] Magnesium (11/30/2019 8:30 PM EDT) athologist Signature Magnesium 0.79 0.69 - 1.07 [place] mmol/L [facility] Specimen Anatomical Collection Method Collection Time Receive d Time (Source) Location / / Volume Laterality Blood specimen 11/30/2019 8:30 PM 020 8:35 (specimen) EDT PM EDT Resulting Agency Comment Spec In Lab Gretchen Yoon MD CHEMISTRY ORDERABLES Performing Organization Address City/State/[place] [address] (ABNORMAL) Basic Metabolic Panel (non-fasting) (11/30/2019 8:30 PM EDT) athologist Signature Glucose Lvl 132 65 - 199 [facility] mg/dL [facility] Comment: Diabetes: >=200 mg/dL plus symp toms BUN 12 10 - 20 mg/dL [facility] Creatinine 0.94 0.80 - 1.50 mg/dL [facility] Sodium 136 135 - 145 [...] Chloride 108 (H) 98 - 107 mmol/L [facility] CO2 17 (L) 22 - 31 mmol/L [facility] Anion Gap 11 5 - 15 mmol/L [facility] Calcium 7.9 (L) 8.5 - 10.5 mg/dL [facility] Estimated GFR 80 >=60 mL/min/1.73 m?? [facility] Comment: The eGFR was calculated using the CKD-EP I equation. As with all creatinine based estimates of kidney function, eGFR values calculated with the CKD-EPI equation are not accurate in patients wi th acute kidney failure, extremes of body mass or the acutely ill. [email or web address] eGFR 93 >=60 mL/min/1.73 m?? [facility] Comment: The eGFR was calculated using the CKD-EP I equation. As with all creatinine based estimates of kidney function, eGFR values calculated with the CKD-EPI equation are not accurate in patients wi th acute kidney failure, extremes of body mass or the acutely ill. [email or web address] Specimen Anatomical Collection Method Collection Time Receive d Time (Source) Location / / Volume Laterality Blood specimen 11/30/2019 8:30 PM 020 8:35 (specimen) EDT PM EDT Resulting Agency Comment Spec In Lab Gretchen Yoon MD CHEMISTRY ORDERABLES Performing Organization Address City/[facility] [place] [address] Blood culture (11/30/2019 8:30 PM EDT) Patholo gist Method Time Signature Blood Culture No growth [place] at 5 days. [facility] Specimen Anatomical Collection Method Collection Time Receive d Time (Source) Location / / Volume Laterality Blood specimen 11/30/2019 8:30 PM 020 9:40 (specimen) EDT PM EDT Comment: L HAND Resulting Agency Comment Spec In Lab Gretchen Yono MD MICROBIOLOGY - BLOOD ORDERAB LES Performing Organization Address City/[facility]/[place] [address] Blood culture (11/30/2019 8:30 PM EDT) Patholo gist Method Time Signature Blood Culture No growth MELINA WHITTENCOCK at 5 days. [facility] Specimen Anatomical Collection Method Collection Time Receive d Time (Source) Location / / Volume Laterality Blood specimen 11/30/2019 8:30 PM 020 9:40 (specimen) EDT PM EDT Comment: R HAND Resulting Agency Comment Spec In Lab Gretchen Yoon MD MICROBIOLOGY - BLOOD ORDERAB LES Performing Organization Address [facility] [place] [address] XR Chest One View [...] below. ? Electronically signed by: ALBA Watson Replaced By [facility] ([phone]), at 11/30/2019 8:32 PM Narrative 11/30/2019 8:32 [...] Time Signature pH Art 7.45 7.35 - [facility] 7.45 [facility] pCO2 Art 27 (L) 35 - 45 [facility] mmHg [facility] pO2 Art 68 (L) 85 - 104 [facility] LABORATORY HCO3 Art 18.2 (L) 20.0 - [facility] 26.0 [facility] mmol/[facility] BE Art -5.9 (L) -3.0 - 3.0 [facility] mmol/L [facility] Hgb Blood Gas 12.4 (L) 13.7 - [facility] 16.5 gm/dL [facility] O2HB Art 93.1 (L) 94.0 - [facility] 97.0 % [facility] COHB Art 0.8 % [facility] Comment: Nonsmokers: 0.5-1.5% COHB Smokers: Variable, but usually less than 10% Toxic: 20-30% COHB Lethal: Greater than 60% COHB METHB Art 0.4 <=1.5 % [facility] Na Whole Blood 133 (L) 135 - 145 mmol/L [facility] K Whole Blood 3.6 3.5 - 5.0 mmol/L [facility] Comment: Please note: Patients with WBC >100,000 may have falsely elevated Potassium levels. Contact the Clinical Chemistry L aboratory if there are any questions. ICa Whole Blood 1.13 (L) 1.15 - 1.33 mmol/L [facility] Comment: Note: ??Total bilirubin higher than 20 m g/dL may lead to falsely low ionized calcium. CL Whole Blood 108 (H) 98 - 107 mmol/L [facility] Gluc Whole Bld 121 65 - 199 mg/dL [facility] Comment: Diabetes: >=200 mg/dL plus symp toms. Lactate WB 1.2 0.5 - 2.2 mmol/L [facility] Flow Art 5.0 LPM [facility] Specimen Anatomical Collection Method Collection Time Receive d Time (Source) Location / / Volume Laterality Blood specimen 11/30/2019 8:09 PM 020 8:09 (specimen) EDT PM EDT Gretchen Yoon MD CHEMISTRY ORDERABLES Performing Organization Address City/State/[place] [address] Angiogram [place] (11/30/2019 4:36 PM EDT) Anatomical [...] CT HEAD WO CONTRAST (GENERIC), CT ANGIOGRAM [place] CLINICAL HISTORY: Headache, intracranial hemorrhage suspected F/U on known ICH - assessing for propaga tion TECHNIQUE: CT head performed without intravenous co ntrast administration. CT angiogram [place] 65 cc Omnipaque 350 administered [...] HEAD WO CONTRAST (GENERI C), CT ANGIOGRAM [place] CLINICAL HISTORY: Headache, intracranial hemorrhage suspected F/U on known ICH - assessing for propaga tion TECHNIQUE: CT head performed without intravenous co ntrast administration. CT angiogram [place] 65 cc Omnipaque 350 administered [...] CT HEAD WO CONTRAST (GENERIC), CT ANGIOGRAM [place] CLINICAL HISTORY: Headache, intracranial hemorrhage suspected F/U on known ICH - assessing for propaga tion TECHNIQUE: CT head performed without intravenous co ntrast administration. CT angiogram [place] 65 cc Omnipaque 350 administered [...] HEAD WO CONTRAST (GENERI C), CT ANGIOGRAM [place] CLINICAL HISTORY: Headache, intracranial hemorrhage suspected F/U on known ICH - assessing for propaga tion TECHNIQUE: CT head performed without intravenous co ntrast administration. CT angiogram [place] 65 cc Omnipaque 350 administered [...] e number below. Electronically signed by: Angel Lusi Barboza MD, [facility] ([phone]), at 11/30/2019 5:04 PM Gretchen Yoon MD [...] 453 ms MUSE SYSTEM (Bezet) Calculated P [place] 52 degrees MUSE SYSTEM Calculated R [place] 5 degrees MUSE SYSTEM Calculated T [place] -60 degrees MUSE SYSTEM INTERPRETATION Sinus rhythm [...] Nilo ? (Age): 1945(74y) Med Rec#: ? [id number] ?Sex: ?M ? [place] ? [facility] [place]Ht / Wt: ??178(cm)/64(kg) Pt. Loc: ?CCU ? BSA: ?1.8 Study Date: ?? 11/30/2019 ?Pt. Type: Inpatient Tape: ? Referring: GILMER Reading: Tello Mejia ([id number]) Post Anesthesia Nurse: Friend, Lolita Diagnosis: *ST elevation (STEMI) myocardial [...] Vmax ?0.58 ? m/sec ? MV deceleration crqo672.05 ? m sec ? MV A-wave Vmax [...] ? Mid-Inferior ?Akinetic ? Mid-Inferoseptal ?Normal ? Landing-Septal ? Normal ? Landing-Anterior ? Normal ? Landing-Lateral ?Normal ? Landing-Inferior ? Hypokinetic ? Landing-Tip ?Normal ? This report has been electronically sign ed by: _ Tello Mejia MD ? 11/30/2019 12: 45:27 Images reviewed and interpretation [facility] Cardiac Ultrasound Laboratory Procedure Note Tello Mejia MD - 11/30/2019Formatti ng of this note might be different from the original. Procedure: Transthoracic Echocardiogram Patient: RITA ACOSTA(Age): [birth year](74y) Med Rec#: [id number] Sex: M [place] [facility] Ht / Wt: 178(cm)/64(kg) Pt. Loc: [facility] BSA: 1.8 Study Date: 11/30/2019 Pt. Type: Inpatie nt Tape: Referring: VANGIEJ Reading: Tello Mejia ([id number]) Post Anesthesia Nurse: Eve Lolita Diagnosis: *ST elevation (STEMI) myocardial [...] MV E-wave Vmax 0.58 m/sec MV deceleration kecl892.05 msec MV A-wave Vmax 0.74 m/sec MV [...] Hypokinetic Mid-Posterolateral Hypokinetic Mid-Inferior Akinetic Mid-Inferoseptal Normal Landing-Septal Normal Landing-Anterior Normal Landing-Lateral Normal Landing-Inferior Hypokinetic Landing-Tip Normal This report has been electronically sign ed by: _ Tello Mejia MD 11/30/2019 12:45:27 Images reviewed and interpretation verif d [facility] Cardiac Ultrasound Laboratory Gretchen Yoon MD [...] Electronically signed by: Angel Luis Barboza MD, [facility] ([phone]), at 11/30/2019 12:04 PM Narrative 11/30/2019 12:04 [...] Emergency Department Magnesium 0.88 0.69 - 1.07 [facility] mmol/L [facility] Specimen Anatomical Collection Method Collection Time Receive d Time (Source) Location / / Volume Laterality Blood specimen Venous Draw / 11/30/2019 8:30 AM 2019 8:37 (specimen) Unknown EDT AM EDT Resulting Agency Comment Spec In Lab Rossy Winn MD CHEMISTRY ORDERABLES Performing Organization Address City/State/[place] [address] (ABNORMAL) CK (11/30/2019 8:30 AM EDT) athologist [facility] CK, Total 1,645 (H) 0 - 200 [facility]L [facility] Specimen Anatomical Collection Method Collection Time Receive d Time (Source) Location / / Volume Laterality Blood specimen 11/30/2019 8:30 AM 020 8:32 (specimen) EDT AM EDT Resulting Agency Comment Spec In Lab Gretchen Yoon MD CHEMISTRY ORDERABLES Performing Organization Address City/[facility]/ZIP [facility] [place] [address] (ABNORMAL) Troponin (11/30/2019 8:30 AM EDT) athologist [facility] Troponin-T 8.04 (H) 0.00 - MELINA OLIVIA 0.00 ng/mL [facility] Comment: result rechecked-rancho The 99th percentile for Troponin T is le ss than 0.01 ng/mL, any detectable cTnT concentration using this assay should be considered elevated. According to the third universal definit ion of myocardial infarction the following criteria with a clinical prese ntation consistent with acute myocardial ischemia meets the diagnosis for a myocardial infarction (LA). Detection of a rise and/or fall of [...] additional sample may be indicated. Reference: Third [place] Definition of Myocardial Infarction. Journal of the [place] College [employer] 2012;60:1581-98 Specimen Anatomical Collection Method Collection Time Receive d Time (Source) Location / / Volume Laterality Blood specimen 11/30/2019 8:30 AM 020 8:32 (specimen) EDT AM EDT Resulting Agency Comment Spec In Lab Gretchen Yoon MD CHEMISTRY ORDERABLES Performing Organization Address City/State/[place] [address] EKG 12 Lead (11/30/2019 7:57 AM EDT) Component Value Ref Range Test Analysis Performed Pathologis t Method Time At Signature Ventricular rate 64 BPM MUSE SYSTEM Atrial Rate 64 BPM MUSE SYSTEM P-R Interval 132 ms MUSE SYSTEM QRS Duration 78 ms MUSE SYSTEM Q-T Interval 420 ms MUSE SYSTEM QTC Calculated 433 ms MUSE SYSTEM (Bezet) Calculated P [place] 28 degrees MUSE SYSTEM Calculated R [place] 7 degrees MUSE SYSTEM Calculated T [place] -33 degrees MUSE SYSTEM INTERPRETATION Sinus rhythm [...] Signature Glucose 147 (H) 65 - 99 [facility] Fasting mg/dL [facility] Comment: ?Fasting* Glucose Interpretive C [...] of Diabetes Mellitus, Position Statement from the [place] [employer]. ??Diabete s Care, Volume 33, Supplement 1, Jul 2009 BUN 13 10 - 20 mg/dL [facility] Creatinine 0.90 0.80 - 1.50 mg/dL [facility] Sodium 135 135 - 145 [...] Chloride 108 (H) 98 - 107 mmol/L [facility] CO2 16 (L) 22 - 31 mmol/L [facility] Anion Gap 11 5 - 15 mmol/L [facility] Calcium 7.5 (L) 8.5 - 10.5 mg/dL [facility] Estimated GFR 84 >=60 mL/min/1.73 m?? [facility] Comment: The eGFR was calculated using the CKD-EP I equation. As with all creatinine based estimates of kidney function, eGFR values calculated with the CKD-EPI equation are not accurate in patients wi th acute kidney failure, extremes of body mass or the acutely ill. [email or web address] eGFR 98 >=60 mL/min/1.73 m?? [facility] Comment: The eGFR was calculated using the CKD-EP I equation. As with all creatinine based estimates of kidney function, eGFR values calculated with the CKD-EPI equation are not accurate in patients wi th acute kidney failure, extremes of body mass or the acutely ill. [email or web address]/[facility]kf Specimen Anatomical Collection Method Collection Time Receive d Time (Source) Location / / Volume Laterality Blood specimen 11/30/2019 2:15 AM 020 2:29 (specimen) EDT AM EDT Resulting Agency Comment Spec In Lab Gretchen Yoon MD CHEMISTRY ORDERABLES Performing Organization Address City/State/ZIP Code Phon e Number [place] [id number] [address] Drive (ABNORMAL) Hemogram (11/30/2019 2:15 AM EDT) Analysis Performed At Patho logist Time Signature WBC 11.2 (H) 4.0 - 9.5 [facility] x10(3)/[facility] LABORATORY RBC 3.83 (L) 4.58 - [facility] 5.54 [facility] x10(6)/[facility] LABORATORY Hemoglobin 11.4 (L) 13.7 - [facility] 16.5 gm/dL [facility] Hematocrit 35.2 (L) 40.5 - [facility] % [facility] MCV 91.9 82.9 - [facility] 93.[address] [facility] MCH 29.8 27.5 - [facility] 32.1 [facility] LAB[facility]ATORY MCHC 32.4 32.0 - MELINA WHITTENCOCK 35.7 gm/dL [facility] Platelets 122 (L) 145 - 357 MELINA MARSHOLIVIA x10(3)/[facility] LABORATORY RDWSD 49.8 (H) 36.0 - MELINA WHITTENCOCK 45.0 [facility] LABORATORY RDWCV 14.8 (H) 11.4 - EMLINA OLIVIA 13.8 % [facility] MPV 12.1 7.6 - 12.9 MELINA MONAE [facility] LABORATORY nRBC % Auto 0.0 % [facility] nRBC Abs Auto 0.000 0.000 - MELINA MARSHOLIVIA 0.000 [facility] x10(3)/[facility] LABORATORY Specimen Anatomical Collection Method Collection Time Receive d Time (Source) Location / / Volume Laterality Blood specimen 11/30/2019 2:15 AM 020 2:29 (specimen) EDT AM EDT Resulting Agency Comment Spec In Lab Gretchen Yoon MD HEMATOLOGY ORDERABLES Performing Organization Address City/[facility]/ZIP Code Phon e Number [address] (ABNORMAL) CK (11/30/2019 2:15 AM EDT) [facility], Total 1,969 (H) 0 - 200 [facility]L [facility] Specimen Anatomical Collection Method Collection Time Receive d Time (Source) Location / / Volume Laterality Blood specimen 11/30/2019 2:15 AM 020 2:29 (specimen) EDT AM EDT Resulting Agency Comment Spec In Lab Gretchen Yoon MD CHEMISTRY ORDERABLES Performing Organization Address City/State/[place] [address] (ABNORMAL) Troponin (11/30/2019 2:15 AM EDT) [facility] Troponin-T 11.73 (H) 0.00 - MELINA WHITTENCOCK 0.00 ng/mL [facility] Comment: result rechecked-slw The 99th percentile for Troponin T is le ss than 0.01 ng/mL, any detectable cTnT concentration using this assay should be considered elevated. According to the third universal definit ion of myocardial infarction the following criteria with a clinical prese ntation consistent with acute myocardial ischemia meets the diagnosis for a myocardial infarction (LA). Detection of a rise and/or fall of [...] additional sample may be indicated. Reference: Third [place] Definition of Myocardial Infarction. Journal of the [place] College of [employer]iology 2012;60:1581-98 result rechecked- The 99th percentile for Troponin T is le ss than 0.01 ng/mL, any detectable cTnT concentration using this assay should be considered elevated. According to the third universal definit ion of myocardial infarction the following criteria with a clinical prese ntation consistent with acute myocardial ischemia meets the diagnosis for a myocardial infarction (LA). Detection of a rise and/or fall of [...] additional sample may be indicated. Reference: Third [place] Definition of Myocardial Infarction. Journal of the [place] College of Cardiology 2012;60:1581-98 Corrected from 11.73 ng/ml [HI] on 11/29 3:11:51 EDT by Debi Hawley Specimen Anatomical Collection Method Collection Time Receive d Time (Source) Location / / Volume Laterality Blood specimen 11/30/2019 2:15 AM 020 2:29 (specimen) EDT AM EDT Resulting Agency Comment Spec In Lab Gretchen Yoon MD CHEMISTRY ORDERABLES Performing Organization Address City/[facility]/ZIP Code Phon e Number [address] LDL Cholesterol, Direct (11/30/2019 2:15 AM EDT) P athologist Signature LDL Chol 156 mg/dL [facility] LABORATORY Comment: Lowest Risk: <100 mg/dL Lower Risk: 100-129 mg/dL Borderline High Risk: 130-159 mg/dL High Risk: 160-189 mg/dL Very High Risk: >rz=253 mg/dL Specimen Anatomical Collection Method Collection Time Receive d Time (Source) Location / / Volume Laterality Blood specimen 11/30/2019 2:15 AM 020 2:29 (specimen) EDT AM EDT Resulting Agency Comment Spec In Lab Gretchen Yoon MD CHEMISTRY ORDERABLES Performing Organization Address City/[facility]/ZIP Code Phon e Number [address] (ABNORMAL) Hemoglobin A1c (11/30/2019 2:15 AM EDT) Analysis Performed At Patho logist Time Signature Hemoglobin A1C 6.3 (H) 4.3 - 5.6 [facility] LABORATORY Comment: Reference Range: 4.3 - [...] Mellitus, Diabetes Care 2013; 36: Suppl. 1, M54-09 Est Avg Gluc See note mg/dL [facility] LABORATORY Comment: Estimated Average Glucose not [...] with hemoglobinopathies. Additional resources are available on [facility] ADA website. Kiko CARBAJAL, Jenn J, Silas R, et al. ??Tr anslating the A1C assay into estimated average glucose values. ??Diabetes Care 2008:31(8):9276-3060. Specimen Anatomical Collection Method Collection Time Receive d Time (Source) Location / / Volume Laterality Blood specimen 11/30/2019 2:15 AM 020 2:29 (specimen) EDT AM EDT Resulting Agency Comment Spec In Lab Gretchen Yoon MD CHEMISTRY ORDERABLES Performing Organization Address City/State/[place] [address] Lipid Panel (Reflex Direct LDL) (11/30/2019 2:15 AM EDT) athologist Signature Chol, Total 195 mg/dL [facility] Comment: Lower Risk: <200 mg/dL Average Risk: 200-239 mg/dL Higher Risk: >ii=729 mg/dL Triglycerides 93 mg/dL [facility] LABOR[facility] Comment: Average Risk/Lower Risk: <150 mg/dL Borderline High Risk: 150-199 mg/dL High Risk: 200-499 mg/dL Very High Risk: >pp=305 mg/dL HDL 32 mg/dL [facility] LABOR[facility] Comment: Males: ?? Higher Risk: <40 mg/dL Females: ?? HIgher Risk: <50 mg/dL LDL Cholesterol 144 mg/dL [facility] Comment: Lowest Risk: <100 mg/dL Lower Risk: 100-129 mg/dL Borderline High Risk: 130-159 mg/dL High Risk: 160-189 mg/dL Very High Risk: >hi=051 mg/dL Chol/HDL Ratio 6.1 ratio [facility] Lipid Interpretation See Note [facility] Comment: Lipid management should be guided by a p atient? s ASCVD risk, goals and preferences. ACC/AHA Guidelines recommend high intens ity statin if clinical ASCVD or LDL greater than or equal to 190 mg/dL. http://[email or web address]-QKE-Loppntlwp Adults aged 40-75 with LDL 70-189 mg/dL should have their 10 year ASCVD risk estimated with the ACC/AHA ASCVD risk es timator http://tools.acc.org/OBFAI-Cqht-Njcrmmvz r/ Statin should be discussed if risk [...] Organization Address City/State/[place] [address] (ABNORMAL) CK (11/29/2019 6:35 PM EDT) athologist Signature CK, Total 2,780 (H) 0 - 200 [facility] unit/L [facility] Specimen Anatomical Collection Method Collection Time Receive d Time (Source) Location / / Volume Laterality Blood specimen 11/29/2019 6:35 PM 020 6:53 (specimen) EDT PM EDT Resulting Agency Comment Spec In Lab Gretchen Yoon MD CHEMISTRY ORDERABLES Performing Organization Address City/State/[place] [address] (ABNORMAL) Troponin (11/29/2019 6:35 PM EDT) athologist Signature Troponin-T 17.60 (H) 0.00 - [facility] 0.00 ng/mL [facility] Comment: result rechecked-az The 99th percentile for Troponin T is le ss than 0.01 ng/mL, any detectable cTnT concentration using this assay should be considered elevated. According to the third universal definit ion of myocardial infarction the following criteria with a clinical prese ntation consistent with acute myocardial ischemia meets the diagnosis for a myocardial infarction (LA). Detection of a rise and/or fall of [...] additional sample may be indicated. Reference: Third [place] Definition of Myocardial Infarction. Journal of the [place] College of Cardiology 2012;60:1581-98 Specimen Anatomical Collection Method Collection Time Receive d Time (Source) Location / / Volume Laterality Blood specimen 11/29/2019 6:35 PM 020 6:53 (specimen) EDT PM EDT Resulting Agency Comment Spec In Lab Gretchen Yoon MD CHEMISTRY ORDERABLES Performing Organization Address City/State/[place] [address] EKG 12 Lead (11/29/2019 3:58 PM EDT) [facility] gist Method Time Signature Ventricular rate 73 BPM MUSE SYSTEM Atrial Rate 73 BPM MUSE SYSTEM P-R Interval 152 ms MUSE SYSTEM QRS Duration 84 ms MUSE SYSTEM Q-T Interval 404 ms MUSE SYSTEM QTC Calculated 445 ms MUSE SYSTEM (Bezet) Calculated P [place] 50 degrees MUSE SYSTEM Calculated R [place] -4 degrees MUSE SYSTEM Calculated T [place] 19 degrees MUSE SYSTEM INTERPRETATION Sinus rhythm [...] below. ? Electronically signed by: Devin Solis Replaced By [facility] ([phone]), at 11/29/2019 5:06 PM --------ORIGINAL REPORT -------- EXAMINATION: XR CHEST ONE VIEW CLINICAL HISTORY: stemi (as entered by [facility] provider in the order requisition) [...] lung apex is excluded from the imaged [id number]. IMPRESSION: 1. ??New right internal jugular pulmonar [...] below. ? Electronically signed by: Devin Solis Replaced By [facility] ([phone]), at 11/29/2019 4:36 PM Impressions 11/29/2019 4:36 [...] below. ? Electronically signed by: Devin Solis Replaced By [facility] ([phone]), at 11/29/2019 4:36 PM Narrative 11/29/2019 4:36 [...] lung apex is excluded from the imaged [id number]. Procedure Note Estefani Harris MD - 11/29/2019Formattin [...] lung apex is excluded from the imaged [id number]. IMPRESSION 1. New right internal jugular pulmonary [...] contact e number below. Electronically signed by: Devin Solis Replaced By [facility] ([phone]), at 11/29/2019 4:36 PM Juventino Concepcion MD IMG DX ORDERABLES (ABNORMAL) Differential, Automated (11/29/2019 2:32 PM EDT) [facility] Method Time Signature Neutrophils % 83.8 % [facility]ORAT[facility] Neutr Abs (ANC) 12.12 (H) 1.70 - [facility] 6.10 [facility] x10(3)/[facility] LABORATORY Lymphocytes % 9.1 % [facility]OR[facility] Lymphocytes Abs 1.3 0.9 - 3.2 [facility] x10(3)/[facility] LABORATORY Monocytes % 6.2 % [facility] Monocyte Abs 0.9 0.3 - 0.9 [facility] x10(3)/[facility] LABORATORY Eosinophils % 0.0 % [facility] Eosinophils Abs 0.0 0.0 - 0.4 [facility] x10(3)/[facility] LABORATORY Basophils % 0.3 % [facility] Basophils Abs 0.0 0.0 - 0.1 [facility] x10(3)/[facility] LABORATORY Immature Gran % 0.60 % [facility]OR[facility] Comment: Immature granulocytes(IG's)percentage an [...] Organization Address City/State/[place] [address] (ABNORMAL) Hemogram (11/29/2019 2:32 PM EDT) Analysis Performed At Patho logist Time Signature WBC 14.5 (H) 4.0 - 9.5 [facility] x10(3)/[facility] LABORATORY RBC 4.53 (L) 4.58 - [facility] x10(6)/[facility] LABORATORY Hemoglobin 13.1 (L) 13.7 - [facility] 16.5 gm/dL [facility] Hematocrit 40.8 40.5 - [facility] % [facility] MCV 90.1 82.9 - [facility] 93.1 [facility] LABORATORY MCH 28.9 27.5 - [facility] [facility] MCHC 32.1 32.0 - [facility] 35.7 gm/dL [facility] Platelets 184 145 - 357 [facility] x10(3)/[facility] LABORATORY RDWSD 47.8 (H) 36.0 - [facility] OLIVIA 45.0 [facility] LABORATORY RDWCV 14.5 (H) 11.4 - [facility] OLIVIA 13.8 % [facility] LABORATORY MPV 11.9 7.6 - 12.9 [facility] nRBC % Auto 0.0 % [facility] LABORATORY nRBC Abs Auto 0.000 0.000 - [place] OLIVIA 0.000 [facility] x10(3)/[facility] LABORATORY Specimen Anatomical Collection Method Collection Time Receive d Time (Source) Location / / Volume Laterality Blood specimen 11/29/2019 2:32 PM 020 2:55 (specimen) EDT PM EDT Resulting Agency Comment Spec In Lab Darrell Glasgow MD HEMATOLOGY ORDERABLES Performing Organization Address City/State/ZIP Code Phon e Number [address] (ABNORMAL) CK (11/29/2019 2:32 PM EDT) athologist Signature CK, Total 3,282 (H) 0 - 200 [facility] unit/L [facility] LABORATORY Specimen Anatomical Collection Method Collection Time Receive d Time (Source) Location / / Volume Laterality Blood specimen 11/29/2019 2:32 PM 020 2:32 (specimen) EDT PM EDT Resulting Agency Comment Spec In Lab Gretchen Yoon MD CHEMISTRY ORDERABLES Performing Organization Address City/[facility] [place] [address] (ABNORMAL) Troponin (11/29/2019 2:32 PM EDT) athologist Signature Troponin-T 20.33 (H) 0.00 - [place] OLIVIA 0.00 ng/mL [facility] LABORATORY Comment: The 99th percentile for Troponin T is le ss than 0.01 ng/mL, any detectable cTnT concentration using this assay should be considered elevated. According to the third universal definit ion of myocardial infarction the following criteria with a clinical prese ntation consistent with acute myocardial ischemia meets the diagnosis for a myocardial infarction (LA). Detection of a rise and/or fall of [...] additional sample may be indicated. Reference: Third [place] Definition of Myocardial Infarction. Journal of the [place] [employer] 2012;60:1581-98 Specimen Anatomical Collection Method Collection Time Receive d Time (Source) Location / / Volume Laterality Blood specimen 11/29/2019 2:32 PM 020 2:32 (specimen) EDT PM EDT Resulting Agency Comment Spec In Lab Gretchen Yoon MD CHEMISTRY ORDERABLES Performing Organization Address [facility] [place] [address] (ABNORMAL) APTT (11/29/2019 2:32 PM EDT) P athologist Signature PTT 114 25 - 37 [facility] (Critical) Pending sale to [facility] LABORATORY Comment: Critical Result called by ?? [...] Yoon MD HEMATOLOGY ORDERABLES Performing Organization Address [facility] [place] [address] (ABNORMAL) Prothrombin Time (11/29/2019 2:32 PM EDT) P athologist Signature PT 13.5 (H) 9.4 - 12.5 [facility] LABORATORY INR 1.2 [facility] LABORATORY Comment: An INR <2.0 [...] Organization Address City/State/[place] [address] (ABNORMAL) Hepatic Function Panel (11/29/2019 2:32 PM EDT) P athologist Signature Total Protein 6.3 6.1 - 8.0 [facility] Albumin 3.6 3.2 - 5.2 [facility]dL [facility] LABORATORY AST 257 (H) 0 - 39 [facility] unit/L [facility] LABORATORY ALT 50 0 - 55 [facility] unit/L [facility] LABORATORY Alk Phos 84 40 - 130 [facility] unit/L [facility] LABORATORY Total 0.3 0.2 - 1.3 [facility] Bilirubin mg/dL [facility] LABORAT[facility] Bili, Direct 0.1 0.0 - 0.3 [facility] OLIVIA mg/dL [facility] LABORATORY Specimen Anatomical Collection Method Collection Time Receive d Time (Source) Location / / Volume Laterality Blood specimen 11/29/2019 2:32 PM 020 2:32 (specimen) EDT PM EDT Resulting Agency Comment Spec In Lab Gretchen Yoon MD CHEMISTRY ORDERABLES Performing Organization Address City/[facility]/[place] [address] (ABNORMAL) pro-Brain Natriuretic Peptide (11/29/2019 2:32 PM EDT) P athologist Signature ProBNP 272 (H) <=125 pg/mL [facility] LABORATORY Specimen Anatomical Collection Method Collection Time Receive d Time (Source) Location / / Volume Laterality Blood specimen 11/29/2019 2:32 PM 020 2:32 (specimen) EDT PM EDT Resulting Agency Comment Spec In Lab Gretchen Yoon MD CHEMISTRY ORDERABLES Performing Organization Address City/[facility]/ZIP Code Phon e Number [place]IA[address] Magnesium (11/29/2019 2:32 PM EDT) athologist Signature Magnesium 0.76 0.69 - 1.07 [facility] mmol/L [facility] LABORATORY Specimen Anatomical Collection Method Collection Time Receive d Time (Source) Location / / Volume Laterality Blood specimen 11/29/2019 2:32 PM 020 2:32 (specimen) EDT PM EDT Resulting Agency Comment Spec In Lab Gretchen Yoon MD CHEMISTRY ORDERABLES Performing Organization Address City/State/ZIP Code Phon e Number [address] (ABNORMAL) Basic Metabolic Panel (non-fasting) (11/29/2019 2:32 PM EDT) athologist Signature Glucose Lvl 149 65 - 199 [facility] mg/dL [facility] LABORATORY Comment: Diabetes: >=200 mg/dL plus symp toms BUN 16 10 - 20 mg/dL [facility] LABORATORY Creatinine 0.94 0.80 - 1.50 mg/dL [facility] LABORATORY Sodium 135 135 - 145 [...] estions. Chloride 105 98 - 107 mmol/L [facility] LABORATORY CO2 15 (L) 22 - 31 mmol/L [facility] LABORATORY Anion Gap 15 5 - 15 mmol/L [facility] LABORATORY Calcium 8.0 (L) 8.5 - 10.5 mg/dL [facility] LABORATORY Estimated GFR 80 >=60 mL/min/1.73 m?? [facility] LABORATORY Comment: The eGFR was calculated using the CKD-EP I equation. As with all creatinine based estimates of kidney function, eGFR values calculated with the CKD-EPI equation are not accurate in patients wi th acute kidney failure, extremes of body mass or the acutely ill. [email or web address]/[facility] eGFR 93 >=60 mL/min/1.73 m?? [facility] LABORATORY Comment: The eGFR was calculated using the CKD-EP I equation. As with all creatinine based estimates of kidney function, eGFR values calculated with the CKD-EPI equation are not accurate in patients wi th acute kidney failure, extremes of body mass or the acutely ill. [email or web address]/[facility] Specimen Anatomical Collection Method Collection Time Receive d Time (Source) Location / / Volume Laterality Blood specimen 11/29/2019 2:32 PM 020 2:32 (specimen) EDT PM EDT Resulting Agency Comment Spec In Lab Gretchen Yoon MD CHEMISTRY ORDERABLES Performing Organization Address City/[facility] [place] [address] EKG 12 Lead (11/29/2019 11:38 AM EDT) [facility] gist Method Time Signature Ventricular rate 60 BPM MUSE SYSTEM Atrial Rate 60 BPM MUSE SYSTEM P-R Interval 140 ms MUSE SYSTEM QRS Duration 86 ms MUSE SYSTEM Q-T Interval 474 ms MUSE SYSTEM QTC Calculated 474 ms MUSE SYSTEM (Bezet) Calculated P [place] 48 degrees MUSE SYSTEM Calculated R [place] 14 degrees MUSE SYSTEM Calculated T [place] 58 degrees MUSE SYSTEM INTERPRETATION Normal sinus [...] Yoon MD ECG ORDERABLES Performing Organization Address City/[facility] Phon e Number MUSE SYSTEM CARDIAC CATHETERIZATION (11/29/2019 11:15 AM EDT) Anatomical Region Laterality Modality Other Specimen (Source) Anatomical Location Collection Method / Collectio n Time Received Time / Laterality Volume Narrative 11/30/2019 1:09 PM EDT ?[facility] ? Cardiac Cathete rization/Intervention Report ? Patient Name: Salinas, Angel Luis H. ? Procedure Date: 11/29/2019 ? A #: [id number] ? Primary Physician: Shaan, Gretchen N ? Case #: [id number] ? File Name: [id number] ? Catheterization Order Number: [id number] ? [facility] ? Final Report [place], [place] ? Patient Name: ? Angel Luis Salinas ? ID#: ?[id number] ? : ?1945 ? Procedure Date: ? [...] procedure was Emergent. The indication for ?the supervisor labor gang visit is ACS less than or equal [...] the RCA. This was a ? de jsuta lesion. This lesion was designated a type [...] dose administered prior to arrival in the supervisor labor gang. ?Recommended anti-platelet/anti- thrombotic regimen: ?Continue aspirin 81 mg daily fo r indefinitely. ?Continue clopidogrel 75 mg marco a y for 12 months then stop. ?These recommendations are made at the time of the intervention. Patient ?and provider preferences or a c hanging clinical situation may require ?modification of this regimen. C [facility] Interventional Cardiology for ?questions. ? Conclusions: ?* [...] note might be different from the original. [facility] Cardiac Catheterization/Intervention Re port Patient Name: SalinasAngel Luis Procedure Date: 11/29/2019 A #: [id number] Primary Physician: Gretchen Yoon Case #: [id number] File Name: [id number] Catheterization Order Number: [id number] [facility] Final Report [place], [place] Patient Name: Angel Luis Salinas ID#: [id number] : 1945 Procedure Date: November 29, 2019 Case #: [id number] Room: 5 Case Physician: Gretchen Yoon M.D. art: 09:11 Fellow: Aidna Ward M.D. Admission: 11/29/2019 Discharge: 12/08/2019 Procedures: [...] designated as ASA Class IV. The [facility] clinical frailty scale is 4: Vulnerable. Diagnostic Tests: Electrocardiography: EKG was assessed by ECG. EKG was Abnorm al. EKG showed ST Deviation >= 0.5 mm. Medications Prior to Procedure: Aspirin. Indications for Diagnostic Cath: The priority of the diagnostic procedur e was Emergent. The indication for the supervisor labor gang visit is ACS less than or equal [...] priority for the procedure was Emergent. The [facility] indication for the procedure was S GAETANO [...] this intervention was 10%. The final TI LA flow was 2. Distal 90% Thrombectomy and [...] this intervention was 10%. The final TI LA flow was 2. Vascular Access: Vascular Access [...] administered prior t o arrival in the supervisor labor gang. Recommended anti-platelet/anti-thrombot ic regimen: Continue aspirin 81 mg daily for indefi nitely. Continue clopidogrel 75 mg daily for 12 months then stop. These recommendations are made at the t loyda of the intervention. Patient and provider preferences or a changing clinical situation may require modification of this regimen. Consult D [facility] Interventional Cardiology for questions. [...] Signature POC pH 7.33 (L) 7.35 - [facility] 7.45 [facility] LABORATORY POC PCO2 33 (L) 35 - 45 [facility] mmHg [facility] LABORATORY POC PO2 56 (L) 85 - 104 [facility] LABORATORY POC Base Excess -8.0 (L) -3.0 - 3.0 [facility] K mmol/L [facility] LABORATORY POC HCO3 17.4 (L) 20.0 - [facility] 26.0 [facility] mmol/[facility] LABORATORY POC Sodium 137 135 - 145 [facility] mmol/L [facility] LABORATORY POC Potassium 3.6 3.5 - 5.0 [facility] mmol/L [facility] POC Ionized Ca 1.15 1.15 - [facility] 1.33 [facility] P[facility] Hematocrit 37.0 (L) 40.0 - [facility] 51.0 % [facility] LABORATORY POC Calc Hgb 12.6 (L) 13.7 - [facility] 17.5 gm/dL [facility] LABORATORY Comment: The calculation of hemoglobin f rom hematocrit assumes a normal MCHC. POC Bgas Loc CC LAB [facility] LABORATORY Specimen Anatomical Collection Method Collection Time Receive d Time (Source) Location / / Volume Laterality Blood specimen 11/29/2019 9:17 AM 020 7:35 (specimen) EDT AM EDT Gretchen Yoon MD CHEMISTRY ORDERABLES Performing Organization Address City/State/[place] [address] EKG 12 Lead (11/29/2019 9:01 AM EDT) Component Value Ref Range Test Analysis Performed Pathologis t Method Time At Signature Ventricular rate 80 BPM MUSE SYSTEM Atrial Rate 79 BPM MUSE SYSTEM QRS Duration 94 ms MUSE SYSTEM Q-T Interval 436 ms MUSE SYSTEM QTC Calculated 502 ms MUSE SYSTEM (Bezet) Calculated R Ponderay 54 degrees MUSE SYSTEM Calculated T [place] 80 degrees MUSE SYSTEM INTERPRETATION Normal sinus rhythm MUSE SYSTEM Inferior infarct , possibly acute Prolonged QT * ACUTE LA ?? Consider right ventricular involvement in acute [...] ONCE, 1 dose, 12/06/19 at 0515, Ad litigation associate over 120 Minutes magnesium sulfate 2 g [...] Amaya Anderson RN) 0925 (Given - Provider: Amaay Anderson RN) 14 mg (1 patch), Transdermal, [...] Bentley RN) 0-8,000 Units, Intravenous, BOLUS PER [facility] PROTOCOL, Starting 12/06/19 at 0926, [...] Oral, EVERY 4 HOURS PRN, Startin g [place] 11/30/19 at 2016, Until Sun12/08/19 at 1811, hypokalemia
Administer for serum potassium (mMol/L) of 3.9 - 4 See instructions for Potassium Protocol in online policies.
Routine Or potassium chloride ER (K-Dur/Klor-Con) tablet 40 mEqJump to med 40 mEq, Oral, EVERY 4 HOURS PRN, Startin g [place] 11/30/19 at 2016, Until Sun12/08/19 at 181, hypokalemia
Administer for serum potassium (mMol/L) of 3.6 - 3.8 See instructions for Potassium Protocol in online policies.
Routine documented in this encounter Care Teams Courier Delivery Driver Relationship Specialty Start Date End Date France Lam MD PCP - General 05/02/13 02/04/20 [address] [place] [address] documented as of this encounter
--- OUTSIDE RECORDS SUMMARY | 2022-03-28 11:12 | XMS_ITS | Encounter Summary ---
:1945 Author Organization [facility] Address [address] [place] [address] Care Team Providers Name Role Phone France Lam MD Primary Care Provider Reason for Visit Reason Comments Claudication Encounter Details Date Type Department Care Team Description 05/13/2013 Office Visit Vascular Surgery at [facility] MD Bobby peripheral vascular [facility] dis ease, left ([address]) [place], [place] VASCULAR SURGERY [address] [place] [address] [phone] Social History Tobacco Use Types Packs/Day Years [...] unspecified documented in this encounter Care Teams Autocad Technician Relationship Specialty Start Date End Date France Lam MD PCP - General 05/02/13 02/04/20 [address] [place] [address] documented as of this encounter
--- OUTSIDE RECORDS SUMMARY | 2022-03-28 11:12 | XMS_ITS | Encounter Summary ---
:1945 Author Organization [facility] [place] [address] Care Team Providers Name Role Phone France Lam MD Primary Care Provider Encounter Details Date Type Department Care Team Description 11/29/2019 External Results [place] [address] Social History Tobacco Use Types Packs/Day [...] filedocumented in this encounter Care Teams Electrical Drafter Relationship Specialty Start Date End Date France Lam MD PCP - General 05/02/13 02/04/20 [address] [place] [address] documented as of this encounter
[2022-03-30 10:55] VITALS: BP 113/57; PULSE 48; O2SAT 93
--- OUTSIDE RECORDS SUMMARY | 2022-03-30 10:56 | XMS_ITS | Continuity of Care Document ---
:1945 Author Organization [facility] Care Team Providers Name Role Phone [facility] Unavailable Unavailable Problems Combined list of problems [...] Comments: Long-term current use of anticoagulant (SCT [id number]) Diagnosis: ICD-10-CM Active Diagnosis ST. Z23 Encounter for WILLIE [place] immunizationwith CBO C Provider Comments: Encounter for Immunization Diagnosis: ICD-10-CM Active Diagnosis ST. H90.3 Sensorineural [facility] hearing loss, CBOC bilateralwith Provider Comments: Asymmetrical sensorineural hearing loss (SNOMED CT [id number]) Diagnosis: ICD-10-CM Active Diagnosis ST. I25.10 Athscl heart [facility] disease of [place] CB OC coronary artery w/o ang pctrswith Provider Comments: Atherosclerotic Heart Disease of [place] Coronary Artery without Angina Pectoris Medications Combined list of outpatient medications from Department of Defense and Veterans Affairs facilities. Medications provided include 1) outpatient medications from the last 15 months, and 2) patient-reported medications. Medication Details Route Status Patient Prescription Prescription Last Ordering Order Source Instructions Expires Number Dispense Provider Date Date AMIODARONE TAKE ONE ORAL ACTIVE 02/14/2023 [id number] JORGE A LOZA 02/15/ HCL TABLET 2 N 2021 [place] (PACERONE) BY MOUTH [place] 200MG TAB EVERY [facility] [place] DAY AFTER ONE MONTH OF TWICE DAILY DOSING THROUGH 02/26/22 APIXABAN TAKE ONE ORAL ACTIVE 2023 [id number] WILLIE LOZA 01/20/ Departm 5MG TAB TABLET 2 N 2021 ent of BY MOUTH TWICE A s DAY TO Affairs HELP PREVENT BLOOD CLOTS (ANTICOA GULATION CCNRX) APIXABAN TAKE ONE ORAL 12/21/2021 [id number] GIANGR ECO 12/30/ WHITE 5MG TAB TABLET 2 ,MILTON Will 2020 [place] BY MOUTH [place] EVERY [place] TWELVE HOURS TO HELP PREVENT BLOOD CLOTS (ANTICOA GULATION ) ASPIRIN TAKE ONE ORAL ACTIVE GIANGRECO 12/20/ WHI TE 81MG TAB,EC TABLET ,MILTON Will 2020 ANNALEE ER BY MOUTH [place] EVERY [facility] DAY CHOLECALCIF TAKE ONE ORAL ACTIVE IRASEMA,P 04/22/ ST. DARIO 25MCG TABLET KARYY A 2014 [place] (1,000UNIT) BY MOUTH RY CB OC TAB EVERY OTHER DAY FUROSEMIDE TAKE ONE ORAL ACTIVE 12/17/2022 [id number] JORGE A LOZA 12/21/ Departm 20MG TAB TABLET 2 N 2021 ent of BY MOUTH EVERY s OTHER Affairs DAY TO REMOVE FLUID/CO NTROL BLOOD PRESSURE FUROSEMIDE TAKE ONE ORAL 11/12/2021 [id number] SJ PATTONM 11/12/ ST. 20MG TAB TABLET 2 ICHAEL 2020 [place] BY MOUTH RY CBOC EVERY OTHER DAY TO REMOVE FLUID/CO NTROL BLOOD PRESSURE LISINOPRIL TAKE ONE ORAL ACTIVE 12/17/2022 [id number] JORGE A LOZA 12/21/ Departm 5MG TAB TABLET 2 N 2021 ent of BY MOUTH [place] EVERY s DAY TO Affairs CONTROL BLOOD PRESSURE LISINOPRIL TAKE ONE ORAL DISCONT 06/08/2022 [id number] JORGE A LOZA 06/15/ WHITE 5MG TAB TABLET INUED 2 N 2020 [place] BY MOUTH [place] EVERY [place] [place] DAY TO CONTROL BLOOD PRESSURE LISINOPRIL TAKE ONE ORAL 06/03/2021 [id number] SJ PATTON,M 06/08/ ST. 5MG TAB TABLET 1 ICHAEL 2019 [place] BY MOUTH RY CBOC EVERY DAY TO CONTROL BLOOD PRESSURE METOPROLOL TAKE ONE ORAL ACTIVE 02/14/2023 [id number] JORGE A LOZA 02/15/ WHITE SUCCINATE TABLET 2 N 2021 RIVER 25MG TAB,SA BY MOUTH [place] EVERY [facility] DAY FOR BLOOD PRESSURE /HEART METOPROLOL TAKE ONE ORAL DISCONT 02/23/2022 [id number] SJ PATTONM 02/28/ ST. SUCCINATE TABLET INUED 2 ICHAEL 2020 [place] 25MG TAB,SA BY MOUTH RY CB OC EVERY DAY FOR BLOOD PRESSURE /HEART NITROGLYCER TAKE ONE SUBLIN 02/23/2022 [id number] Mery LR 02/28/ ST. 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 RECOMBINANT 2020 ed [...] result by 1.210 Tests performed on G[employer] Case[employer] (405) SN:[id number] [place] eGFR E] IN SERUM Ordering Pr ovider: [facility] PANEL OR PLASMA Report Releas ed Date/Time: Feb 24, 2021 11:18 AM Reporting Lab: [facility] [address] [place] [facility] [place] [address] Performing Lab: [facility] [address] [facility] [address] CREATININ GLOMERULAR 44 60 04/28 L Specimen Ty pe: PLASMA WHITE E WITH FILTRATION /2020 Comment: For eGFR: Race unknown, if multiply result by 1.210 Tests performed on [employer]ist (405) SN:[id number] [place] eGFR RATE/1.73 Ordering Prov ider: [facility] PANEL SQ Report Released Date/Time: Feb 24, 2021 11:18 AM M.PREDICTED Reporting L ab: [facility] [VOLUME [address] [place] [facility] [place] [address] RATE/AREA] Performing L ab: [facility] IN SERUM OR [address] [facility] [address] PLASMA BY CREATININE- BASED FORMULA (MDRD) CBC NO LEUKOCYTES 5.8 4.5 - 11.0 04/28 Specimen T ype: BLOOD WHITE DIFF [#/VOLUME] /2020 No comment en tered. [place] IN BLOOD BY Ordering Pr ovider: [facility] AUTOMATED Report Releas ed Date/Time: Feb 24, 2021 11:18 AM COUNT Reporting Lab: [facility] [address] [place] [facility] [place] [address] Performing Lab: [facility] [address] [facility] [address] CBC NO ERYTHROCYTE 4.61 4.23 - 04/28 Specimen Typ e: BLOOD WHITE DIFF S 5.66 /2020 No comment enter ed. [place] [#/VOLUME] Ordering Pro vider: [facility] IN BLOOD BY Report Rele ased Date/Time: Feb 24, 2021 11:18 AM AUTOMATED Reporting Lab : [facility] COUNT [address] [facility] [place] [address] Performing Lab: [facility] [address] [facility] [place] [place] [address] CBC NO HEMOGLOBIN 13.9 12.8 - 17 04/28 Specimen Ty pe: BLOOD WHITE DIFF [MASS/VOLUM /2020 No comment e ntered. [place] E] IN BLOOD Ordering Pr ovider: MILTON UREÑAOC Report Released Date/Time: Feb 24, 2021 11:18 AM Reporting Lab: [facility] [address] [facility] [place] [place] [address] Performing Lab: [facility] [address] [place] [facility] [place] [address] CBC NO HEMATOCRIT 43.6 39.2 - 04/28 Specimen Type : BLOOD WHITE DIFF [VOLUME 50.4 No comment enter ed. [place] FRACTION] Ordering Prov ider: MILTON [facility] OF BLOOD BY Report Rele ased Date/Time: Feb 24, 2021 11:18 AM AUTOMATED Reporting Lab : [facility] COUNT [address] [facility] [place] [address] Performing Lab: [facility] [address] [place] [facility] [place] [place] [address] CBC NO MCV 94.6 82 - 99 04/28 Specimen Type: B LOOD WHITE DIFF [ENTITIC /2020 No comment ente red. [place] VOLUME] BY Ordering Pro vider: MILTON UREÑAOC AUTOMATED Report Releas ed Date/Time: Feb 24, 2021 11:18 AM COUNT Reporting Lab: [facility] [address] [facility] [place] [address] Performing Lab: [facility] [address] [facility] [place] [place] [address] CBC NO MCH 30.2 26.2 - 04/28 Specimen Type: B LOOD WHITE DIFF [ENTITIC 32.6 /2020 No comment ente red. [place] MASS] BY Ordering Provi adrian: MILTON UREÑAOC AUTOMATED Report Releas ed Date/Time: Feb 24, 2021 11:18 AM COUNT Reporting Lab: [facility] [address] [place] [facility] [place] [address] Performing Lab: [facility] [address] [place] [facility] [place] [address] CBC NO MCHC 31.9 30.8 - 04/28 Specimen Type: B LOOD WHITE DIFF [MASS/VOLUM 35.1 /2020 No comment e ntered. [place] E] BY Ordering Provid er: MILTON UREÑA AUTOMATED Report Releas ed Date/Time: Feb 24, 2021 11:18 AM COUNT Reporting Lab: [facility] [address] [place] [facility] [place] [address] Performing Lab: [facility] [address] [place] [facility] [place] [address] CBC NO PLATELETS 141 140 - 360 04/28 Specimen Typ e: BLOOD WHITE DIFF [#/VOLUME] /2020 No comment en tered. [place] IN BLOOD BY Ordering Pr ovider: MILTON [facility] AUTOMATED Report Releas ed Date/Time: Feb 24, 2021 11:18 AM COUNT Reporting Lab: [facility] [address] [place] [facility] [place] [address] Performing Lab: [facility] [address] [place] [facility] [place] [address] CBC NO PLATELET 12.1 9.2 - 12.4 04/28 Specimen Typ e: BLOOD WHITE DIFF MEAN VOLUME /2020 No comment e ntered. [place] [ENTITIC Ordering Provi adrian: MILTON UREÑAOC VOLUME] IN Report Relea sed Date/Time: Feb 24, 2021 11:18 AM BLOOD BY Reporting Lab: [facility] AUTOMATED [address] [place] [facility] [place] [address] COUNT Performing Lab: [facility] [address] [place] [facility] [place] [address] CBC NO ERYTHROCYTE 15.0 12.0 - 04/28 Specimen Typ e: BLOOD WHITE DIFF DISTRIBUTIO 16.0 No comment e ntered. [place] N WIDTH Ordering Provid er: MILTON UREÑAOC [RATIO] BY Report Relea sed Date/Time: Feb 24, 2021 11:18 AM AUTOMATED Reporting Lab : [facility] COUNT [address] [place] [facility] [place] [address] Performing Lab: [facility] [address] [place] [facility] [place] [address] CREATININ CREATININE 1.37 0.5 - 1.5 02/22 Specimen Type: PLASMA WHITE E WITH [MASS/VOLUM /2020 Comment: Fo r eGFR: Race unknown, if multiply result by 1.210 Tests performed on [employer] (405) SN:[id number] [place] eGFR E] IN SERUM Ordering Pr ovider: MILTON URE[facility] PANEL OR PLASMA Report Releas ed Date/Time: Dec 20, 2020 02:24 PM Reporting Lab: [facility] [address] [place] [facility] [place] [address] Performing Lab: [facility] [address] [place] [facility] [place] [address] CREATININ GLOMERULAR 51 60 02/22 L Specimen Ty pe: PLASMA WHITE E WITH FILTRATION /2020 Comment: For eGFR: Race unknown, if multiply result by 1.210 Tests performed on [employer] (405) SN:[id number] [place] eGFR RATE/1.73 Ordering Prov ider: MILTON URE[facility] PANEL SQ Report Released Date/Time: Dec 20, 2020 02:24 PM M.PREDICTED Reporting L ab: [facility] [VOLUME [address] [place] [facility] [place] [address] RATE/AREA] Performing L ab: [facility] IN SERUM OR [address] [place] [facility] [place] [address] PLASMA BY CREATININE- BASED FORMULA (MDRD) CBC NO LEUKOCYTES 6.8 4.5 - 11.0 02/22 Specimen T ype: BLOOD WHITE DIFF [#/VOLUME] /2020 No comment en tered. [place] IN BLOOD BY Ordering Pr ovider: MILTON [facility] AUTOMATED Report Releas ed Date/Time: Dec 20, 2020 02:24 PM COUNT Reporting Lab: [facility] [address] [place] [facility] [place] [address] Performing Lab: [facility] [address] [place] [facility] [place] [address] CBC NO ERYTHROCYTE 5.03 4.23 - 08 Specimen Typ e: BLOOD WHITE DIFF S 5.66 /2020 No comment enter ed. [place] [#/VOLUME] Ordering Pro vider: MILTON UREÑ[facility] IN BLOOD BY Report Rele ased Date/Time: Dec 20, 2020 02:24 PM AUTOMATED Reporting Lab : [facility] COUNT [address] [facility] [address] Performing Lab: [facility] [address] [facility] [address] CBC NO HEMOGLOBIN 14.9 12.8 - 17 02/22 Specimen Ty pe: BLOOD WHITE DIFF [MASS/VOLUM /2020 No comment e ntered. [place] E] IN BLOOD Ordering Pr ovider: MILTON UREÑA Report Released Date/Time: Dec 20, 2020 02:24 PM Reporting Lab: [facility] [address] [place] [facility] [place] [address] Performing Lab: [facility] [address] [place] [facility] [place] [address] CBC NO HEMATOCRIT 46.7 39.2 - 02/22 Specimen Type : BLOOD WHITE DIFF [VOLUME 50.4 No comment enter ed. [place] FRACTION] Ordering Prov ider: MILTON UREÑAOC OF BLOOD BY Report Rele ased Date/Time: Dec 20, 2020 02:24 PM AUTOMATED Reporting Lab : [facility] COUNT [address] [place] [facility] [place] [address] Performing Lab: [facility] [address] [place] [facility] [place] [address] CBC NO MCV 92.8 82 - 99 02/22 Specimen Type: B LOOD WHITE DIFF [ENTITIC /2020 No comment ente red. [place] VOLUME] BY Ordering Pro vider: MILTON UREÑAOC AUTOMATED Report Rele ed Date/Time: Dec 20, 2020 02:24 PM COUNT Reporting Lab: [facility] [address] [facility] [address] Performing Lab: [facility] [address] [facility] [address] CBC NO MCH 29.6 26.2 - 08 Specimen Type: B LOOD WHITE DIFF [ENTITIC 32.6 /2020 No comment ente red. [place] MASS] BY Ordering Provi adrian: MILTON UREÑA AUTOMATED Report Releas ed Date/Time: Dec 20, 2020 02:24 PM COUNT Reporting Lab: [facility] [address] [facility] [address] Performing Lab: [facility] [address] [facility] [address] CBC NO MCHC 31.9 30.8 - 08 Specimen Type: B LOOD WHITE DIFF [MASS/VOLUM 35.1 /2020 No comment e ntered. [place] E] BY Ordering Provid er: MILTON UREÑA AUTOMATED Report Releas ed Date/Time: Dec 20, 2020 02:24 PM COUNT Reporting Lab: [facility] [address] [facility] [address] Performing Lab: [facility] [address] [facility] [address] CBC NO PLATELETS 159 140 - 360 08 Specimen Typ e: BLOOD WHITE DIFF [#/VOLUME] /2020 No comment en tered. [place] IN BLOOD BY Ordering Pr ovider: MILTON UREÑA AUTOMATED Report Releas ed Date/Time: Dec 20, 2020 02:24 PM COUNT Reporting Lab: [facility] [address] [facility] [address] Performing Lab: [facility] [address] [facility] [address] CBC NO PLATELET 13.0 9.2 - 12.4 08/24 H Specimen Typ e: BLOOD WHITE DIFF MEAN VOLUME /2020 No comment e ntered. [place] [ENTITIC Ordering Provi adrian: MILTON UREÑA VOLUME] IN Report Relea sed Date/Time: Dec 20, 2020 02:24 PM BLOOD BY Reporting Lab: [facility]OMATED [address] [facility] [address] COUNT Performing Lab: [facility] [address] [facility] [address] CBC NO ERYTHROCYTE 14.6 12.0 - 08/24 Specimen Typ e: BLOOD WHITE DIFF DISTRIBUTIO 16.0 /2020 No comment e ntered. [place] N WIDTH Ordering Provid er: [facility] [RATIO] BY Report Relea sed Date/Time: Dec 20, 2020 02:24 PM AUTOMATED Reporting Lab : [facility] COUNT [address] [facility] [address] Performing Lab: [facility] [address] [facility] [address] P4 UREA 20 7 - 25 08/24 Specimen Type: P LASMA ST. GLU,BUN,C NITROGEN /2020 Comment: For eGFR: Race unknown, if multiply result by 1.210 Tests performed on [employer] (405) SN:[id number] IVORY BECKETT [MASS/VOLUM Ordering Provider: GRETCHEN PEREZ CA E] IN SERUM Report Rele ased Date/Time: Feb 22, 2021 10:13 AM OR PLASMA Reporting Lab : [facility] [address] [facility] [address] Performing Lab: [facility] [address] [facility] [address] P4 SODIUM 133 135 - 145 08/24 L Specimen Type: PLASMA ST. GLU,BUN,C [MOLES/VOLU /2020 Comment: For eGFR: Race unknown, if multiply result by 1.210 Tests performed on [employer] (405) SN:[id number] IVORY BECKETT ME] IN Ordering Prov ider: GRETCHEN PEREZ CA SERUM OR Report Release d Date/Time: Feb 22, 2021 10:13 AM PLASMA Reporting Lab: [facility] [address] [facility] [address] Performing Lab: [facility] [address] [facility] [address] P4 POTASSIUM 4.5 3.5 - 5.0 02/22 Specimen Typ e: PLASMA ST. GLU,BUN,C [MOLES/VOLU /2020 Comment: For eGFR: Race unknown, if multiply result by 1.210 Tests performed on [employer] (405) SN:[id number] IVORY BECKETT UT] IN Ordering Prov ider: GRETCHEN PEREZ SPRINCESS SERUM OR Report Release d Date/Time: Feb 22, 2021 10:13 AM PLASMA Reporting Lab: [facility] [address] [place] [facility] [place] [address] Performing Lab: [facility] [address] [place] [facility] [place] [address] P4 CHLORIDE 102 100 - 110 02/22 Specimen Type : PLASMA ST. GLU,BUN,C [MOLES/VOLU /2020 Comment: For eGFR: Race unknown, if multiply result by 1.210 Tests performed on [employer] (405) SN:[id number] IVORY BECKETT UT] IN Ordering Prov ider: GRETCHEN PEREZ CA SERUM OR Report Release d Date/Time: Feb 22, 2021 10:13 AM PLASMA Reporting Lab: [facility] [address] [place] [facility] [place] [address] Performing Lab: [facility] [address] [place] [facility] [place] [address] P4 CARBON 21 20 - 30 02/22 Specimen Type: P LASMA ST. GLU,BUN,C DIOXIDE, /2020 Comment: For eGFR: Race unknown, if multiply result by 1.210 Tests performed on [employer] (405) SN:[id number] IVORY BECKETT [facility] Ordering Prov ider: GRETCHEN PEREZ S,CA [MOLES/VOLU Report Rele ased Date/Time: Feb 22, 2021 10:13 AM UT] IN Reporting Lab: [facility] SERUM OR [address] [place] [facility] [place] [address] PLASMA Performing Lab: [facility] [address] [place] [facility] [place] [address] P4 ANION GAP 10 4 - 16 02/22 Specimen Type: PLASMA ST. GLU,BUN,C IN SERUM OR /2020 Comment: For eGFR: Race unknown, if multiply result by 1.210 Tests performed on [employer] Specialist (405) SN:[id number] BLAIR BECKETTTE PLASMA Ordering Prov ider: GRETCHEN PEREZ CA Report Released Date/Time: Feb 22, 2021 10:13 AM Reporting Lab: [facility] [address] [facility] [address] Performing Lab: [facility] [address] [facility] [address] P4 GLUCOSE 106 65 - 100 08/24 H Specimen Type: PLASMA ST. GLU,BUN,C [MASS/VOLUM /2020 Comment: For eGFR: Race unknown, if multiply result by 1.210 Tests performed on [employer] Service Specialist (405) SN:[id number] MARCELA NYELYTE E] IN SERUM Ordering Provider: GRETCHEN PEREZ CA OR PLASMA Report Releas ed Date/Time: Feb 22, 2021 10:13 AM Reporting Lab: [facility] [address] [facility] [address] Performing Lab: [facility] [address] [facility] [address] P4 CREATININE 1.37 0.5 - 1.5 02/22 Specimen Ty pe: PLASMA ST. GLU,BUN,C [MASS/VOLUM /2020 Comment: For eGFR: Race unknown, if multiply result by 1.210 Tests performed on [employer] Service Specialist (405) SN:[id number] BLAIR BECKETTTE E] IN SERUM Ordering Provider: GRETCHEN PEREZ CA OR PLASMA Report Releas ed Date/Time: Feb 22, 2021 10:13 AM Reporting Lab: [facility] [address] [facility] [address] Performing Lab: [facility] [address] [facility] [address] P4 CALCIUM 9.6 8.5 - 10.5 02/22 Specimen Type : PLASMA ST. GLU,BUN,C [MASS/VOLUM /2020 Comment: For eGFR: Race unknown, if multiply result by 1.210 Tests performed on [employer] Service Specialist (405) SN:[id number] MARCEAL NYELYTE E] IN SERUM Ordering Provider: ANA,GRETCHEN CBOC S,CA OR PLASMA Report Releas ed Date/Time: Feb 22, 2021 10:13 AM Reporting Lab: [facility] [address] [facility] [address] Performing Lab: [facility] [address] [facility] [address] P4 GLOMERULAR 51 60 02/22 L Specimen Type : PLASMA ST. GLU,BUN,C FILTRATION /2020 Comment: F or eGFR: Race unknown, if multiply result by 1.210 Tests performed on [employer] (405) SN:[id number] MARCELA REIVORY MILLER RATE/1.73 Ordering Pr ovider: GRETCHEN PEREZ S,CA SQ Report Released Date/Time: Feb 22, 2021 10:13 AM M.PREDICTED Reporting L ab: [facility] [VOLUME [address] [facility] [address] RATE/AREA] Performing L ab: [facility] IN SERUM OR [address] [facility] [address] PLASMA BY CREATININE- BASED FORMULA (MDRD) LIVER PROTEIN 8.0 6.0 - 8.5 02/22 Specimen Type: PLASMA ST. PROFILE [MASS/VOLUM /2020 Comment: Fo r eGFR: Race unknown, if multiply result by 1.210 Tests performed on [employer] (405) SN:[id number] [facility] E] IN SERUM Ordering Pr ovider: GRETCHEN PEREZ CBOC OR PLASMA Report Releas ed Date/Time: Feb 22, 2021 10:13 AM Reporting Lab: [facility] [address] [place] [facility] [place] [address] Performing Lab: [facility] [address] [facility] [address] LIVER ALBUMIN 4.0 3.2 - 5.0 02/22 Specimen Type: PLASMA ST. PROFILE [MASS/VOLUM /2020 Comment: Fo r eGFR: Race unknown, if multiply result by 1.210 Tests performed on [employer] (405) SN:[id number] [facility] E] IN SERUM Ordering Pr ovider: GRETCHEN PEREZ CBOC OR PLASMA Report Releas ed Date/Time: Feb 22, 2021 10:13 AM Reporting Lab: [facility] [address] [facility] [address] Performing Lab: [facility] [address] [place] [facility] [place] [address] LIVER BILIRUBIN.T 0.6 0.2 - 1.2 02/22 Specimen T ype: PLASMA ST. PROFILE OTAL /2020 Comment: For eG FR: Race unknown, if multiply result by 1.210 Tests performed on [employer] (405) SN:[id number] [facility] [MASS/VOLUM Ordering Pr ovider: GRETCHEN PEREZ E] IN SERUM Report Rele ased Date/Time: Feb 22, 2021 10:13 AM OR PLASMA Reporting Lab : [facility] [address] [facility] [address] Performing Lab: [facility] [address] [facility] [address] LIVER ALKALINE 75 40 - 150 02/22 Specimen Type: PLASMA ST. PROFILE PHOSPHATASE Comment: Fo r eGFR: Race unknown, if multiply result by 1.210 Tests performed on [employer] (405) SN:[id number] [facility] [ENZYMATIC Ordering Pro vider: GRETCHEN PEREZ ACTIVITY/VO Report Rele ased Date/Time: Feb 22, 2021 10:13 AM LUME] IN Reporting Lab: [facility] [address] [place] [facility] [place] [address] PLASMA Performing Lab: [facility] [address] [place] [facility] [place] [address] LIVER ALANINE 16 7 - 52 02/22 Specimen Type: P LASMA ST. PROFILE AMINOTRANSF Comment: Fo r eGFR: Race unknown, if multiply result by 1.210 Tests performed on [employer] (405) SN:[id number] [facility] ERASE Ordering Provid er: GRETCHEN PEREZ [ENZYMATIC Report Relea sed Date/Time: Feb 22, 2021 10:13 AM ACTIVITY/VO Reporting L ab: [facility] LUME] IN [address] [place] [facility] [place] [facility] [place] [address] SERUM OR Performing Lab : [facility]MA [address] [place] [facility] [place] [address] LIVER ASPARTATE 17 5 - 34 02/22 Specimen Type: PLASMA ST. PROFILE AMINOTRANSF Comment: Fo r eGFR: Race unknown, if multiply result by 1.210 Tests performed on [employer] Service Specialist (405) SN:[id number] [facility] ERASE Ordering Provid er: GRETCHEN PEREZ [ENZYMATIC Report Relea sed Date/Time: Feb 22, 2021 10:13 AM ACTIVITY/VO Reporting L ab: [facility] [place] IN [address] [facility] [address] SERUM [place] Performing Lab : [facility] PLASMA [address] [place] [facility] [place] [place] [address] LIPOPROTE CHOLESTEROL 361 0 - 199 08/24 H Specimen T ype: PLASMA ST. IN [MASS/VOLUM /2020 Comment: Fo r eGFR: Race unknown, if multiply result by 1.210 Tests performed on [employer] Service Specialist (405) SN:[id number] [facility] CHOLESTER E] IN SERUM Ordering Provider: GRETCHEN PEREZ OL FRACT. OR PLASMA Report Rele ased Date/Time: Feb 22, 2021 10:13 AM PANEL Reporting [facility] [address] [facility] [address] Performing Lab: [facility] [address] [place] [facility] [place] [address] LIPOPROTE TRIGLYCERID 170 0 - 149 08/24 H Specimen T ype: PLASMA ST. IN E Comment: For eG FR: Race unknown, if multiply result by 1.210 Tests performed on [employer] (405) SN:[id number] [facility] CHOLESTER [MASS/VOLUM Ordering Provider: GRETCHEN PEREZ OL FRACT. E] IN SERUM Report Re leased Date/Time: Feb 22, 2021 10:13 AM PANEL OR PLASMA Reporting Lab : [facility] [address] [facility] [address] Performing Lab: [facility] [address] [facility] [address] LIPOPROTE CHOLESTEROL 46 40 08/24 Specimen T ype: PLASMA ST. IN IN HDL /2020 Comment: For eG FR: Race unknown, if multiply result by 1.210 Tests performed on G[employer]alez [employer] (405) SN:[id number] [facility] CHOLESTER [MASS/VOLUM Ordering Provider: GRETCHEN PEREZ OL FRACT. E] IN SERUM Report Re leased Date/Time: Feb 22, 2021 10:13 AM PANEL OR PLASMA Reporting Lab : [facility] [address] [facility] [address] Performing Lab: [facility] [address] [facility] [address] LIPOPROTE CHOLESTEROL 281 0 - 129 08/24 H Specimen T ype: PLASMA ST. IN IN LDL /2020 Comment: For eG FR: Race unknown, if multiply result by 1.210 Tests performed on Gonsalez Extension Service Specialist (405) SN:[id number] MARCELA CHOLESTER [MASS/VOLUM Ordering Provider: GRETCHEN PEREZ OL FRACT. E] IN SERUM Report Re leased Date/Time: Feb 22, 2021 10:13 AM PANEL OR PLASMA Reporting Lab : [facility] [address] [facility] [address] CALCULATION Performing Lab: [facility] [address] [facility] [address] VITAMIN COBALAMIN 312 200 - 900 08/24 Specimen Typ e: SERUM ST. B-12 (VITAMIN /2020 Comment: Tests performed on Gonsalez Extension Service Specialist (405) SN:[id number] MARCELA B12) Ordering Provid er: GRETCHEN PEREZ [MASS/VOLUM Report Rele ased Date/Time: Feb 22, 2021 10:13 AM E] IN SERUM Reporting L ab: [facility] OR PLASMA [address] [facility] [address] Performing Lab: [facility] [address] [facility] [address] GLYCOHEMO HEMOGLOBIN 6.2 4.0 - 5.6 08/24 H Specimen Type: BLOOD ST. GLOBIN A1C/HEMOGLO /2020 Comment: Te sts performed on Gonsalez Extension Service Specialist (405) SN:[id number] MARCELA (A1C BIN.TOTAL Ordering Prov ider: GRETCHEN PEREZ ONLY) IN BLOOD BY Report Rele ased Date/Time: Feb 22, 2021 10:13 AM HPLC Reporting Lab: [facility] [address] [facility] [address] Performing Lab: [facility] [address] [facility] [address] VIT D CALCIFEROL 40.8 20 - 50 08/24 Specimen Type : SERUM ST. 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 Location Location Encounter Encounter Reason Attending ADM DC Stat us Disposition Source Details Type Number For Provider Date Date Visit Outpatient 58232-4.40 09/30 WHIT E Encounter [id number] /2020 [facility] 26514-0.40 10/19 WHIT [facility] Encounter [id number] /2020 [facility] 38598-3.40 11/11 WH[facility] E Encounter [id number] /2020 [facility] [place] 56045-4.40 11/11 WH[facility] E Encounter [id number] /2020 [facility] 24697-4.40 11/11 WH[facility] E Encounter [id number] /2020 [facility] Outpatient 41980-4.40 12/13 [facility] E [id number] [facility] 75761-0.40 Diagnos ADELITA, 12/20 W JIMBO PHONE CALL [id number] is: MILTON B /2020 R IVER 11-20 MIN ICD-10- JCT CM [facility] Z79.01 lobsterman (curren t) use of anticoa gulants
Provide r Comment s: Long-te rm current use of anticoa gulant (SCT 9364344 03) Outpatient 10313-5.40 02/22 WHIT E En[facility] [id number] [facility] 10482-8.40 Diagnos SÁNCHEZ PEREZ 02/22 ST. EST MOD [id number] is: CHAEL JOHNSBU 30-39 MIN 29 ICD-10- RY CBOC CM I25.10 Athscl heart disease of [place] coronar y artery w/o ang pctrs<b r/>with Provide r Comment s: Atheros cleroti c Heart Disease of [place] Coronar y Artery without Angina Pectori s Outpatient 02/24 WHIT E Encounter [id number] /2021 [facility] MTMS BY Diagnos GUERDABINGJose Elias, 02/24 WH[facility] EST [id number] is: MILTON RI DORI 15 MIN ICD-10- JCT CM [facility] Z79.01 half-way (curren t) use of anticoa gulants
Provide r Comment s: Long-te rm current use of anticoa gulant (SCT 6958110 03) Outpatient 03/02 WHIT E Encounter [id number] /2021 [facility] COMPREHENS 56722-1.40 Diagnos RADHA, 04/12 ST. ELA [id number] is: HLEY A [facility] HEARING 39 ICD-10- RY CBOC TEST CM H90.3 Sensori neural hearing loss, bilater al
with Provide r Comment s: Asymmet rical sensori neural hearing loss (SNOMED CT 9126853 09) Outpatient 04/15 WHIT E Encounter [id number] /2021 [facility] OFFICE O/P 93288-6.40 Diagnos PETTIGLIO, 04/28 ST. EST [id number] is: SAMMY A JOHNSB U MINIMAL 02 ICD-10- RY CBOC PROB CM Z23 Encount er for immuniz ation<b r/>with Provide r Comment s: Encount er for Immuniz ation HC PRO 36345-9.40 Diagnos NICOLA LEONE 04/29 W JIMBO PHONE CALL [id number] is: AN RIVE R 11-20 MIN ICD-10- JCT CM [facility] Z79.01 half-way (curren t) use of anticoa gulants
wi th Provide r Comment s: Long-te rm current use of anticoa gulant ([facility] [id number] 03) Outpatient 49727-4.40 07/04 WHIT E Encounter [id number] /2022 [facility] Social History Combined list of available smoking, tobacco, and other social history [facility]. Social History Response Date Comment Source Type Tobacco smoking VA-TOBACCO FORMER 02/22/2021 [facility]OC status NHIS USER History of tobacco VA-TOBACCO QUIT 1 02/22/2021 [facility] use TO < 5 YRS History of tobacco VA-TOBACCO FORMER 03/04/2020 [facility]OC use USER History of tobacco VA-TOBACCO USE 03/21/2018 [facility] use ZIPPER SETTER NO History of tobacco CURRENT SMOKER 01/16/2018 [facility] use History of tobacco CURRENT SMOKER 03/28/2017 [facility] VA use CLINIC History of tobacco [...] Source 01/15/2019 ADVANCE DIRECTIVE DISCUSSION STEPHANIE HERNANDEZ [facility]
--- OUTSIDE RECORDS SUMMARY | 2022-03-30 10:57 | XMS_ITS | Encounter Summary ---
:1945 Author Organization [facility] Address [address] [place] [address] Care Team Providers Name Role Phone Jennifer Gomez METAL DIE FINISHER Primary Care Provider Encounter Details Date Type Department Care Team Description 08/26/2021 Lab Requisition [facility] Najma Valladares for other Pathology & M, DO general examination Laboratory Medicine - [address] [facility] [address] [place] [address] Social History Tobacco Use Types Packs/Day Years [...] 8:45 EST) Note to Patient The following [facility] MEDICAL pathology results have CENTER been interpreted by your LABORATORY pathologist and may be SERVICES available to you before your health provider has had the opportunity to review them. Please allow time for your provider to receive these results and explore management options, if applicable. Final Diagnosis A. RECTUM, POLYP, BIOPSY : [facility] MEDICAL - Polypoid submucosal anal glands. CENTER - Overlying rectal mucosa negative for dysplasia. LABORATORY - See comment. SERVICES Diagnosis Comment This rectal polyp shows a cantor bmucosal collection of anal duct glands causing a polypoid configuration. The morphology and the immunohistochemical profile are consistent with a benign (non-neoplastic) pro [facility] MEDICAL cess. Carpenter Maintenance slides of this case were reviewed at the gastrointestinal/liver intradepartmental consultation conference. CENTER LABORATORY ANTIBODY(CLONE)(BLOCK):RESULT SERVICES CK7 (RN7, Leica) (A1): Strongly positive PAX-8 (MRQ-50, [place]) (A1): Negative NKX3.1 (Rabbit Polyclonal, [facility]ocare) (A1): Negative GATA3 (L50-823, [place]) (A1): Negative NOTE: One or more of [...] characteristics have been de termined by [facility] and/or by the referring laboratory. The [...] laboratory testing. Attestation By the signature below, [facility] Elec tronically the attending physician CENTER sign ed by Odalis, certifies that they have LABORATORY Taim MD edna on 1) personally conducted SERVICES 2021 at 1309 a gross and/or microscopic examination of the described specimen(s), and/or personally interpreted the results of laboratory testing of the described specimen(s), and 2) personally rendered or confirmed the above diagnosis. Clinical History Flex sigmoidoscopy; [facility] diverticulosis, polyp CENTER LABORATORY SERVICES Gross Description A. [facility] Received in formalin mark d with proper patient identification (initials M, J) and rectal polyp is a marr-brown polyp, 0.6 x 0.5 x 0.4 cm. Bisected and entirely submitted in A1. CENTER LABORATORY ESTEFANY NICHOLS(ASCP) 08/26/2021 16:41 SE RVICES Performing Lab [facility] Scanned Images [facility] Specimen Tissue - Specimen from rectum (specimen) Performing Organization Address City/State/ZIP Code Phon e Number [facility] [address] [place] [address] SERVICES documented in this encounter Visit Diagnoses Diagnosis Encounter for other general examination documented in this encounter Care Teams Front Load Trash Truck Driver Relationship Specialty Start Date End Date Jennifer Gomez NP PCP - General 05/10/15 [facility] [address] [place] [address] documented as of this encounter
--- OUTSIDE RECORDS SUMMARY | 2022-03-30 10:57 | XMS_ITS | Encounter Summary ---
:1945 Author Organization [facility] [place] [address] Care Team Providers Name Role Phone France Lam MD Primary Care Provider Reason for Visit Reason Onset Date Comments TeleHealth 01/12/2020 Encounter Details Date Type Department Care Team Description 01/12/2020 Telephone Neurosurgery at [facility] Alfreda Salas, TeleHealth [facility] [place] [address] [facility] [phone] [place], [place] [address] (Wo rk) Social History Tobacco [...] on filedocumented in this encounter Care Teams Window Decorator Relationship Specialty Start Date End Date France Lam MD PCP - General 05/02/13 02/04/20 [address] [place] [address] documented as of this encounter
--- OUTSIDE RECORDS SUMMARY | 2022-03-30 10:57 | XMS_ITS | Encounter Summary ---
:1945 Author Organization [facility] Address [address] [place] [address] Care Team Providers Name Role Phone Jennifer Gomez CASE MANAGERS Primary Care Provider Encounter Details Date Type Department Care Team Description 02/07/2020 Lab Requisition [facility] Outr Resulting Lab, Pathology & Laboratory Provider [facility] [address] [place] [address] Social History Tobacco Use Types [...] (02/07/2020 7:59 EDT) COVID-19 rt-PCR NEGATIVE Negative [facility] Result Comment: LABORATORY 2019-novel Coronavirus [...] Code Phon e Number [facility] [place], [place] COVID-19 TESTING (02/07/2020 7:59 EDT) COVID-19 rt-PCR NEGATIVE Negative [facility] Result Comment: LABORATORY 2019-novel Coronavirus [...] Emergency Use Authorization. Performing Lab [facility] LABORATORY SERVICES Specimen Swab Performing Organization Address City/State/ZIP Code Phon e Number [facility] [address] [place] [address] SERVICES [facility] [place], [place] documented in this encounter Visit Diagnoses Not on filedocumented in this encounter Care Teams Postal Carrier Relationship Specialty Start Date End Date Jennifer Gomez NP PCP - General 05/10/15 [facility] [address] [place], [place] [address] documented as of this encounter
--- OUTSIDE RECORDS SUMMARY | 2022-03-30 10:57 | XMS_ITS | Encounter Summary ---
:1945 Author Organization [facility] [place] [address] Care Team Providers Name Role Phone Jovany Lott MD Primary Care Provider Encounter Details Date Type Department Care Team Description 10/12/2020 Notes Only Cardiology at [facility] Willow Callejas, NIURKA [facility] [place] [address] Social History Tobacco Use Types Packs/Day [...] want totalk to my doctor at the [place] and do a little more research before I decide what to do, I'm a little afraid of it. He notes that he has a scheduled clinic visit in November and will discuss with Dr. Garduno at that time. documented in this encounter Plan of Treatment Not on filedocumented as of this encounter Visit Diagnoses Not on filedocumented in this encounter Care Teams Experimental Welder Relationship Specialty Start Date End Date Jovany Lott MD PCP - General Family Medicine 02/05/20 [place] [id number] documented as of this encounter
--- OUTSIDE RECORDS SUMMARY | 2022-03-30 10:57 | XMS_ITS | Encounter Summary ---
:1945 Author Organization [facility] [place] [address] Care Team Providers Name Role Phone Jovany Lott MD Primary Care Provider Reason for Visit Reason Onset Date Comments Follow-up 06/15/2020 Tobacco Treatment Encounter Details Date Type Department Care Team Description 06/15/2020 Telephone Vascular Surgery at [facility] Tran-melvin (Tobacco [facility] Sukumar, RN Treatment) [place] [address] Social History Tobacco Use Types Packs/Day [...] updated. Ryan Tran, MSN, RN-BC, NCTTP Tobacco Food Service Substitute [facility] Pager #[phone] documented in this encounter Plan of Treatment Not on filedocumented as of this encounter Visit Diagnoses Not on filedocumented in this encounter Care Teams Section Supervisor Relationship Specialty Start Date End Date Jovany Lott MD PCP - General Family Medicine 02/05/20 [place] [address] documented as of this encounter
--- OUTSIDE RECORDS SUMMARY | 2022-03-30 10:57 | XMS_ITS | Encounter Summary ---
:1945 Author Organization [facility] Address [address] [place] [address] Care Team Providers Name Role Phone Unavailable Primary Care Provider Unavailable Encounter Details Date Type Department Care Team Description 09/02/2003 Results Only [facility] Patel MD conversion [address] [facility] [address] [place] [address] [place] [address] (Wo rk) Social History Tobacco Use Types [...] ANGEL LUIS SALINAS ? Accession #: ? [id number] ? : ? 1945 (Age: 58) ??M [...] of the lesion is recommended. ?? (Dr. Mascorro)/[facility]opic Description: ? The epidermis is hype [...] and cords of similar melanocytes that show cellophane press operator maturation with descent. ??There is papillary dermal fibroplasia. ??(Dr. Mascorro)/[facility] Document reviewed and electronically signed by: Mai [...] and entirely submitted in one cassette. ??(Dr Stephnay Amador)/[facility] End of Report Specimen Performing Organization Address City/State/ZIP Code Phon e Number [facility] [address] [place] [address] SERVICES [facility] [address] [place] [address] documented in this encounter Visit Diagnoses Not on filedocumented in this encounter
--- OUTSIDE RECORDS SUMMARY | 2022-03-30 10:57 | XMS_ITS | Encounter Summary ---
:1945 [place] [address] Care Team Providers Name Role Phone France Lam MD Primary Care Provider Encounter Details Date Type Department Care Team Description 12/29/2019 Ancillary Procedure Radiology Library at Ivette Salas [facility] STEPHANIE [facility] [place] [address] [place] [address] [phone] (Wo rk) Social History Tobacco Use Types [...] is for storage only. Alfreda Salas APRN [facility] FILM LIBRARY ORDERABLES Performing Organization Address City/State/ZIP Code Phon e Number [place], [place] documented in this encounter Visit Diagnoses Not on filedocumented in this encounter Care Teams Systems Developer Relationship Specialty Start Date End Date France Lam MD PCP - General 05/02/13 02/04/20 [address] [place] [address] documented as of this encounter
--- OUTSIDE RECORDS SUMMARY | 2022-03-30 10:57 | XMS_ITS | Encounter Summary ---
:1945 Author Organization [facility] [place] [address] Care Team Providers Name Role Phone France Lam MD Primary Care Provider Encounter Details Date Type Department Care Team Description 12/08/2019 Telephone Neurosurgery at [facility] Sarah [facility]cher [facility] [place] [address] Social History Tobacco Use Types Packs/Day Years Used Date Current Every Day Smoker Cigars 0.5 Sex Assigned at Date Recorded Not on file documented as of this encounter Miscellaneous Notes Telephone Encounter - Elza Bradshaw - 12/22/2019 6:[address] in eDH Telephone Encounter - Elza Bradshaw - 12/18/2019 3:43 PM EDT Left message at [facility] requesting they call back to advise if patient has been scheduled for CT. Telephone Encounter - Sarah Boucher - 12/08/2019 3:[address] order to [facility] to schedule, 12/16-12/18 for 12/22 TOV scheduled w/BCB Telephone Encounter - Sarah Boucher - 12/08/2019 9:50 AM EDT RN, please put in CT order external=[place] Pt's called not able to come to [facility] on 12/[address] to have CT locally at [facility] call w/results. documented in this encounter Plan of Treatment Not on filedocumented as of this encounter Visit Diagnoses Not on filedocumented in this encounter Care Teams Historiography Teacher Relationship Specialty Start Date End Date France Lam MD PCP - General 05/02/13 02/04/20 [address] [place] [address] documented as of this encounter
--- OUTSIDE RECORDS SUMMARY | 2022-03-30 10:57 | XMS_ITS | Encounter Summary ---
:1945 Author Organization [facility] [address] Care Team Providers Name Role Phone France Lam MD Primary Care Provider Encounter Details Date Type Department Care Team Description 12/23/2019 TH Visit Neurosurgery at [facility] Alfreda Salas Intracranial (TeleHealth) [facility] C, [place] [address] Center [phone] [place] [address] Social History Tobacco Use Types Packs/Day Years Used Date Current Every Day Smoker Cigars 0.5 Sex Assigned at Date Recorded Not on file documented as of this encounter Progress Notes Alfreda Salas C, FURNITURE CRATER - 12/23/2019 1:30 PM EDT Images from [...] [address] up [address] at [facility], showing slight decrease in size and attenuation [...] 3-4 weeks which may be done at [facility] with follow up TOV [facility]. Head CT 12/18/19 Assessment and Plan Jovany [...] hemorrhage documented in this encounter Care Teams Ship Runner Relationship Specialty Start Date End Date France Lam MD PCP - General 05/02/13 02/04/20 [address] [place] [address] documented as of this encounter
--- OUTSIDE RECORDS SUMMARY | 2022-03-30 10:57 | XMS_ITS | Encounter Summary ---
:1945 Author Organization [facility] Address [address] [place] [address] Care Team Providers Name Role Phone Jovany Lott MD Primary Care Provider Encounter Details Date Type Department Care Team Description 08/31/2020 TH Visit Cardiology at [facility] Faustino Garduno Atrial fibrillation, unspeci fied type (Primary Dx); (TeleHealth) [facility] MD Jaquan Acute ST elevation myocardial infarction (STEMI) of inferior wall; [facility] Acute systolic CHF (congesti ve heart failure), NYHA class 3, MILVIA/AHA stage C; [place], [place] Center Hyperlipidemia, unspecified hyperlipidem ia type; [address] [place], [place] Intracranial hemorrhage; [phone] PFO (patent foramen ovale); [phone] Claudication fr om peripheral vascular disease, left [...] with ICH, bilateral PE; paroxysmal atrial fibrillation [[id number]: 5]; PAD; HLD; HTN; smoking and PFO,who [...] appointment with Dr. Faustino Chou at the [facility]. However, he has not grossly noted that [...] a non-culprit artery. S/P DESx3 in the myvqflos-us-eiqgwj RCA. Aspiration thrombectomy performed, and integrellin bolus [...] with ICH, bilateral PE; paroxysmal atrial fibrillation [[id number]: 5]; PAD; HLD; HTN; smoking and PFO, [...] Will also discuss further with his local food processor, Dr. Mejia. 3. Bilateral PE - Case discussed with Dr. Sanchez above; likely provoked in lieu of his prolonged hospitalization. He has completed at least 6 months of oral A/C (coinciding treatment for his afib). 4. PAD - Continue optimal medical therapy for now. Will place referral for SET/walking program. F/U 3 months Faustino Garduno MD Time spent: 35 minutes Addendum 09/13/20: Called [phone] or [phone] and was able to speak to Dr. Faustino Chou. Pt also sees Dr. Lott in [facility] for local primary care needs. Dr. Chou [...] unspecified documented in this encounter Care Teams Striper Relationship Specialty Start Date End Date Jovany Lott MD PCP - General Family Medicine 02/05/20 [place] [address] documented as of this encounter
--- OUTSIDE RECORDS SUMMARY | 2022-03-30 10:57 | XMS_ITS | Encounter Summary ---
:1945 [place] [address] Care Team Providers Name Role Phone France Lam MD Primary Care Provider Encounter Details Date Type Department Care Team Description 12/08/2019 Orders Only Neurosurgery at [facility] Natalia Delong, Intracranial [facility] [place] [address] Social History Tobacco Use Types Packs/Day Years Used Date Current Every Day Smoker Cigars 0.5 Sex Assigned at Date Recorded Not on file documented as of this encounter Plan of Treatment Not on filedocumented as of this encounter Visit Diagnoses Diagnosis Intracranial hemorrhage Unspecified intracranial hemorrhage documented in this encounter Care Teams Skidder Lever Operator Relationship Specialty Start Date End Date France Lam MD PCP - General 05/02/13 02/04/20 [address] [place] [address] documented as of this encounter
--- OUTSIDE RECORDS SUMMARY | 2022-03-30 10:57 | XMS_ITS | Encounter Summary ---
:1945 Author Organization [facility] Address [facility] [place] [address] Care Team Providers Name Role Phone France Lam MD Primary Care Provider Reason for Visit Reason Onset Date Comments TeleHealth 01/08/2020 Appt 01/09/20 Encounter Details Date Type Department Care Team Description 01/08/2020 Telephone Neurology at [facility] Efrain Nicole PA TeleHealth (Appt [facility] 12/[address] ) [place] [address] NEUROLOGY [phone] [place], [place] [address] (Wo rk) Social History Tobacco [...] on filedocumented in this encounter Care Teams Inside Sales Administrator Relationship Specialty Start Date End Date France Lam MD PCP - General 05/02/13 02/04/20 [address] [place] [address] documented as of this encounter
--- OUTSIDE RECORDS SUMMARY | 2022-03-30 10:57 | XMS_ITS | Encounter Summary ---
:1945 Author Organization [facility] [place] [address] Care Team Providers Name Role Phone Jovany Lott MD Primary Care Provider Encounter Details Date Type Department Care Team Description 10/05/2020 Notes Only Cardiology Merlin Sanchez [place] [address] CARDIOLOGY DEPT. [phone] [place], [place] [address] (Wo rk) Social History Tobacco [...] BEKAH-C with WM FLX Merlin Sanchez MD [facility] Pager [phone] documented in this encounter Plan of Treatment Not on filedocumented as of this encounter Visit Diagnoses Not on filedocumented in this encounter Care Teams Associate Professor Of Pathology Relationship Specialty Start Date End Date Jovany Lott MD PCP - General Family Medicine 8/6/20 [address] [place] [address] documented as of this encounter
--- OUTSIDE RECORDS SUMMARY | 2022-03-30 10:57 | XMS_ITS | Encounter Summary ---
:1945 Author Organization [facility] Address [facility] [place] [address] Care Team Providers Name Role Phone Jovany Lott MD Primary Care Provider Encounter Details Date Type Department Care Team Description 10/08/2020 Telephone Cardiology at [facility] Faustino Garduno MD [facility] [place] [address] [place] [address] [phone] (Wo rk) Social History Tobacco Use Types [...] with Dr. Chou, his provider via the OR (see my prior clinic note). His case was reviewed by our Watchman (left atrial appendage closure team). He has anatomy that would be conducive to closure, should he wish to pursue this for stroke prevention and ability to be off anticoagulation care home. Left message for callback to our Structural Program (contact Willow Callejas APRN). If he is interested, I would be happy to offerscheduling for him. Faustino Garduno MD Pager [phone] documented in this encounter Plan of Treatment Not on filedocumented as of this encounter Visit Diagnoses Not on filedocumented in this encounter Care Teams Principal Solutions Architect Relationship Specialty Start Date End Date Jovany Lott MD PCP - General Family Medicine 02/05/20 [address] [place] [address] documented as of this encounter
--- OUTSIDE RECORDS SUMMARY | 2022-03-30 10:57 | XMS_ITS | Clinical Summary ---
:1945 Author Organization [facility] [place] [address] Care Team Providers Name Role Phone Jovany Lott MD Primary Care Provider Allergies Active Allergy Reactions Severity Noted Date Comments Penicillins 05/13/2013 Pt doesn't gely mber reaction Kmlofki-Dhj-Gbb Reductase 05/13/2013 St iff neck, upset stomach, [...] Address City/State/ZIP Code Phon e Number RAD [place], [place] from Last 3 Months Insurance Payer Benefit Plan / Subscriber ID Effective Dates Phone Addre ss Type Group MEDICARE MEDICARE PART [id number] 2019-Prese [phone] [place] [address] [place] [id number] 2018-Presen [place] [place] [id number] Advance Directives Latest Code Status on File [...] capacity to make decision: Yes Care Teams Orthopedic Specialist Relationship Specialty Start Date End Date Jovany Lott MD PCP - General Family Medicine 02/05/20 [address] [place] [phone]
--- OUTSIDE RECORDS SUMMARY | 2022-03-30 10:57 | XMS_ITS | Clinical Summary ---
:1945 Author Organization [facility] Address [address] [place] [address] Care Team Providers Name Role Phone Jennifer Gomez Bunny TELEPRINTER INSTALLER Primary Care Provider Encounters Date Type Specialty [...] Free 9.3 (H) 2.8 - 5.3 pg/mL [facility] Specimen Blood - Venous blood (substance) Performing Organization Address City/State/ZIP Code Phon e Number [facility] [address] [place] [address] SERVICES FECAL BACTERIAL PATHOGENS BY PCR (01/24/2022 14:50 EDT) Pathologist Sig nature Salmonella PCR Negative Negative [facility] Shigella/Enteroinvasive Negative Negative [facility] R E. coli LAB[facility] SERVICES HN LAB CAMPYLOBACTER PCR Negative Negative [facility] SERVICES Shiga Toxin PCR Negative Negative [facility] Specimen Feces - Specimen from rectum (specimen) Performing Organization Address City/State/ZIP Code Phon e Number [facility] [address] [place] [address] SERVICES from Last 3 Months Insurance Payer Benefit Plan Subscriber ID Effective Phone Address Typ e / Group Dates [employer] OF [employer] OF [id number] 2018-Prese [id number] [place] [address] MEDICARE MEDICARE A/B [id number] 2011-Pres [address] Medicare GL ent [id number] [place] [address] (Work) Jovany Hi Personal/Family Self [address] (Home) [place] [address] (Work) Jovany Hi Personal/Family Self [address] (Home) [place] [address] (Work) Care Teams Warrant Clerk Relationship Specialty Start Date End Date Jennifer Gomez, TELEPRINTER INSTALLER PCP - General 05/10/15 [facility] [address] [place], [place] [id number]
--- OUTSIDE RECORDS SUMMARY | 2022-03-30 10:57 | XMS_ITS | Encounter Summary ---
:1945 Author Organization [facility] Address [facility] [place] [address] Care Team Providers Name Role Phone France Lam MD Primary Care Provider Encounter Details Date Type Department Care Team Description 12/26/2019 TH Visit Cardiology at [facility] Merlin Sanchez V, Claudication from peripheral vascular disease, left ; (TeleHealth) 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 [phone] [place] [address] Social History Tobacco Use Types Packs/Day Years [...] best is to differ this conversation until retirement OAC strategy has been set. Specifically, if this is being treated as a provoked dvt/pe, then would re-evaluate to coordinated with OAC discontinuation. I discussed the above findings with the patient and his both of whom appear to understand and is in agreement with the plan going forward. Merlin Sanchez M.D., F.A.C.C. fur tailor Pager 2020 >50% of the 15 minute [...] failure documented in this encounter Care Teams Communication Electronic Technician Relationship Specialty Start Date End Date France Lam MD PCP - General 05/02/13 02/04/20 [address] [place] [address] documented as of this encounter
--- OUTSIDE RECORDS SUMMARY | 2022-03-30 10:57 | XMS_ITS | Encounter Summary ---
:1945 Author Organization [facility] Address [address] [place] [address] Care Team Providers Name Role Phone Jennifer Gomez CHARGE LPN Primary Care Provider Encounter Details Date Type Department Care Team Description 03/19/2019 Results Only [facility] Angel Luis Lott MD [phone] [address] [place], [place] [phone] (Wo rk) Social History Tobacco Use Types [...] (03/19/2019 16:47 EDT) Pathology SURGICAL PATHOLOGY REPORT [facility] Report: Reports generated via electronic interface conta in original data; [facility]ENTER [facility]ORY however they are lacking the format of the original re port. SERVICES Caution should be taken when reading/interpreting unfo rmatted reports. Name: ? ANGEL LUIS HI ? Accession #: ? [id number] ? : ? 1945 (Age: 8 3) [...] Organization Address City/State/ZIP Code Phon e Number [facility] [address] [place] [address] SERVICES documented in this encounter Visit Diagnoses Not on filedocumented in this encounter Care Teams Parts Puller Relationship Specialty Start Date End Date Jennifer Gomez NP PCP - General 05/10/15 [facility] [address] [place], [place] [phone] documented as of this encounter
--- OUTSIDE RECORDS SUMMARY | 2022-03-30 10:57 | XMS_ITS | Encounter Summary ---
:1945 Author Organization [facility] Address [address] [place] [address] Care Team Providers Name Role Phone France Lam MD Primary Care Provider Encounter Details Date Type Department Care Team Description 12/22/2019 Telephone Cardiology Riki Stevens, [facility] [place] [address] [facility] [phone] [facility] [place] [phone] (Wo rk) Social History Tobacco Use Types Packs/Day Years Used Date Current Every Day Smoker Cigars 0.5 Sex Assigned at Date Recorded Not on file documented as of this encounter Miscellaneous Notes Telephone Encounter - Riik Stevens MD - 12/22/2019 12:56 PM EDT [...] on filedocumented in this encounter Care Teams Last Sawyer Relationship Specialty Start Date End Date France Lam MD PCP - General 05/02/13 02/04/20 [address] [place] [address] documented as of this encounter
--- OUTSIDE RECORDS SUMMARY | 2022-03-30 10:57 | XMS_ITS | Encounter Summary ---
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 S/P DESx3 in the nxqgisui-cv-oljdml RCA. Aspiration thrombectomy performed, and integrellin bolus [...] with ICH, bilateral PE; paroxysmal atrial fibrillation [[id number]: 5]; PAD; HLD; HTN; smoking and PFO, who presents for post-discharge cardiovascular follow-up. CV issues are currently stable. Plan 1. CAD - CCS Class 0. Recovering well. He has completed 1 month of triple therapy. He may stop his aspirin, and resume clopidogrel and apixaban. Starting cardiac rehab. He wishes to pursue PCSK9 referral via the [place] system. 2. Afib - CHADS2-vasc 5, presently [...] 6 months Faustino Garduno MD Time spent: [id number] 0-5min 9807KSI9 6-10min 6115RTZ0 11-15min 4707HFY6 16-20min XXXX 9880NMS7 21-30min 6697OCU0 31-40min 6441QAZ9 40+ min documented in this encounter Plan [...] type documented in this encounter Care Teams Machine Precision Etcher Relationship Specialty Start Date End Date France Lam MD PCP - General 05/02/13 02/04/20 [address] [place] [address] documented as of this encounter
--- OUTSIDE RECORDS SUMMARY | 2022-03-30 10:57 | XMS_ITS | Encounter Summary ---
:1945 Author Organization [facility] Address [address] [place] [address] Care Team Providers Name Role Phone Jennifer Gomez ROLL FORMING MACHINE SET UP OPERATOR Primary Care Provider Encounter Details Date Type Department Care Team Description 01/25/2022 Lab Requisition [facility] Outr Resulting Lab, Pathology & Laboratory Provider [facility] [address], [place] [address] Social History Tobacco Use Types Packs/Day Years [...] Pathologist Sig nature Salmonella PCR Negative Negative [facility] Shigella/Enteroinvasive Negative Negative [facility] R E. coli LABORATORY SERVICES HN LAB CAMPYLOBACTER PCR Negative Negative [facility] ER LABORATORY SERVICES Shiga Toxin PCR Negative Negative [facility] Specimen Feces - Specimen from rectum (specimen) Performing Organization Address City/State/ZIP Code Phon e Number [facility] [address] [place] [address] SERVICES documented in this encounter Visit Diagnoses Not on filedocumented in this encounter Care Teams Emergency Department Manager Relationship Specialty Start Date End Date Jennifer Gomez, ROLL FORMING MACHINE SET UP OPERATOR PCP - General 05/10/15 [facility] [address] [place], [place] [phone] documented as of this encounter
--- OUTSIDE RECORDS SUMMARY | 2022-03-30 10:57 | XMS_ITS | Encounter Summary ---
:1945 Author Organization [facility] Address [address] [place] [address] Care Team Providers Name Role Phone Jennifer Gomez MOVER Primary Care Provider Encounter Details Date Type Department Care Team Description 09/07/2020 Lab Requisition [facility] Outr Resulting Lab, Pathology & Laboratory Provider [facility] [address] [place], [place] [address] Social History Tobacco Use Types Packs/Day Years Used Date Never Assessed Sex Assigned at Date Recorded Not on file documented as of this encounter Plan of Treatment Not on filedocumented as of this encounter Procedures Procedure Name Priority Date/Time Associated Diagnosis Comme nts COVID-19 TEST [facility] Today 09/07/2020 9:45 EST LAB PCR COVID-19 TESTING Routine 09/07/2020 9:45 EST Resu lts for this procedure are i n the results section. documented in this encounter Results COVID-19 TEST [facility] LAB PCR (09/07/2020 9:45 EST) Specimen Swab - Entire nasopharynx (body structur e) Performing Organization Address City/State/ZIP Code Phon e Number [facility] [address] [place] [address] SERVICES COVID-19 TESTING (09/07/2020 9:45 EST) COVID-19 rt-PCR Negative Negative [facility] Result Comment: CENTER LAB[facility]ATORY This test [...] developed and its performance characteristics determined by [facility]. It has not been cleared or [...] defined by the FDA Performed on the 7signal Solutionso 7 Pro RT-PCR System. Performing Lab [facility] Lab [facility] SERVICES Specimen Swab Performing Organization Address City/State/ZIP Code Phon e Number [facility] [address] [place] [address] SERVICES documented in this encounter Visit Diagnoses Not on filedocumented in this encounter Care Teams Plant Engineering Supervisor Relationship Specialty Start Date End Date Jennifer Gomez NP PCP - General 05/10/15 [facility] [address] [place], [place] [address] documented as of this encounter
--- OUTSIDE RECORDS SUMMARY | 2022-03-30 10:57 | XMS_ITS | Encounter Summary ---
:1945 Author Organization [facility] Address [address] [place] [address] Care Team Providers Name Role Phone Unavailable Primary Care Provider Unavailable Encounter Details Date Type Department Care Team Description 09/15/2003 Results Only [facility] - Otis Patel MD conversion [address] [facility] [address] [place] [address] [place] [address] (Wo rk) Social History Tobacco Use Types [...] ANGEL LUIS SALINAS ? Accession #: ? [id number] ? : ? 1945 (Age: 58) ??M ? Collect Date: ? 09/15/2003 ? Location: ? [facility] ? Receive Date: ? 004 ? Provider: OTIS MOSS MD Copy to: MALCOM MCGEE INSPECTOR FABRIC ? Final Pathologic Diagnosis: ? Skin of [...] City/State/ZIP Code Phon e Number [facility] [address] [place] [address] SERVICES [facility] [address] [place] [address] documented in this encounter Visit Diagnoses Not on filedocumented in this encounter
--- OUTSIDE RECORDS SUMMARY | 2022-03-30 10:57 | XMS_ITS | Encounter Summary ---
:1945 Author Organization [facility] [place] [address] Care Team Providers Name Role Phone France Lam MD Primary Care Provider Encounter Details Date Type Department Care Team Description 01/09/2020 TH Visit Neurology at [place] Efrain Nicole, Intracranial hemorrhage; (TeleHealth) [facility] ESTEFANY Tobacco abuse; Drive [facility] Cerebrovascular accident (CV A) due to embolism of right posterior cerebral artery [facility] [address] NEUROLOGY [phone] [place] [address] Social History Tobacco Use Types Packs/Day Years Used Date Current Every Day Smoker Cigars 0.5 Sex Assigned at Date Recorded Not on file documented as of this encounter Progress Notes Efrain Nicole PA - 01/09/2020 9:00 AM EDT [facility] [place] [address] t: [phone] / f: [phone] TELEPHONE ENCOUNTER Date of Appointment: 01/09/2020 I [...] cardiology - had f/u head CT at [facility] which was stable with resolving known hemorrhage - has not resumed smoking -has been in touch with Dr. Sanchez for Watchman, deferred for duration of anticoagulation for PE Modified Smilax Scale (MRS) 0: No symptoms at all [...] -advised vision/eye exam with his local provider ([facility]); consider referral to neuro-ophthalmology here in [...] artery documented in this encounter Care Teams Genetics Nurse Relationship Specialty Start Date End Date France Lam MD PCP - General 05/02/13 02/04/20 [address] [place] [address] documented as of this encounter
--- OUTSIDE RECORDS SUMMARY | 2022-03-30 10:57 | XMS_ITS | Encounter Summary ---
:1945 Author Organization [facility] Address [address] [place] [address] Care Team Providers Name Role Phone Jennifer Gomez BUSINESS OBJECTS CONSULTANT Primary Care Provider Encounter Details Date Type Department Care Team Description 03/19/2019 Hospital Encounter [facility] Sylvia Unknown, Provider, [facility] [phone] [place] [address] (Work) [phone] Social History Tobacco Use Types Packs/Day Years Used Date Never Assessed Sex Assigned at Date Recorded Not on file documented as of this encounter Discharge Disposition Disposition Code Departure Means Destination Home or Self Shelter documented in this encounter Plan of Treatment Not on filedocumented as of this encounter Visit Diagnoses Not on filedocumented in this encounter Care Teams Tripper Relationship Specialty Start Date End Date Jennifer Gomez, BUSINESS OBJECTS CONSULTANT PCP - General 05/10/15 [facility] [address] [place], [place] [address] documented as of this encounter
--- OUTSIDE RECORDS SUMMARY | 2022-03-30 10:57 | XMS_ITS | Encounter Summary ---
:1945 Author Organization [facility] [place] [address] Care Team Providers Name Role Phone France Lam MD Primary Care Provider Reason for Visit Reason Onset Date Comments TeleHealth 12/22/2019 Appt 12/23/19 Encounter Details Date Type Department Care Team Description 12/22/2019 Telephone Neurosurgery at [facility] Alfreda Salas TeleHealth (Appt [facility] Devin Sebastian, ELEMENTARY [employer] SCHO[employer] TEACHER 12/23/19) [place] [address] [place] [address] [place] [address] Social History Tobacco Use Types Packs/Day [...] on filedocumented in this encounter Care Teams Vice President Mission Integration Relationship Specialty Start Date End Date France Lam MD PCP - General 05/02/13 02/04/20 [address] [place] [address] documented as of this encounter
--- OUTSIDE RECORDS SUMMARY | 2022-03-30 10:57 | XMS_ITS | Encounter Summary ---
:1945 Author Organization [facility] Address [address] [place] [address] Care Team Providers Name Role Phone Jovany Lott MD Primary Care Provider Encounter Details Date Type Department Care Team Description 03/10/2022 Ancillary Procedure Radiology Library at Jovany Lott MD [facility] [address] [facility] [address] [place] [address] [phone] Social History Tobacco Use Types Packs/Day Years [...] Organization Address City/State/ZIP Code Phon e Number [place], [place] documented in this encounter Visit Diagnoses Not on filedocumented in this encounter Care Teams Preschool Head Teacher Relationship Specialty Start Date End Date Jovany Lott MD PCP - General Family Medicine 02/05/20 [address] [place] [address] documented as of this encounter
--- OUTSIDE RECORDS SUMMARY | 2022-03-30 10:57 | XMS_ITS | Encounter Summary ---
:1945 Author Organization [facility] [place] [address] Care Team Providers Name Role Phone Jovany Lott MD Primary Care Provider Reason for Visit Consultation (Routine) - Closed Specialty Diagnoses / Procedures Referred By Contact Refer red To Contact Cardiology Diagnoses ST elevation (STEMI) myocardial infarction of unspecified site Hyperlipidemia, unspecified PeriDawit muhammad MD [place] [address] [place] [address] [address] [facility] D EPT [address] [place] [address] Fax: Referral ID Status Reason Start Date Expiration Date Visits V isits Requested Authorized [id number] Closed Consult, Test 02/10/2020 02/09/2021 [facility] PCP Updated and/or Approved Encounter Details Date Type Department Care Team Description 03/12/2020 TH Visit Cardiology at [facility] Melina Payan Fredrickson type IIa hyperli poproteinemia; (TeleHealth) [facility] Hyperglycemia; [facility] Elevated TSH; [facility] Hypothyroidism, acquired [address] CARDIOLOGY DEPT [phone] [place], [place] [address] Social History Tobacco Use Types Packs/Day Years Used Date Former Smoker Cigars 0.5 Quit: 11/29/19 20 Smokeless Tobacco: Former User Comments: Quit chew tobacco years and y ears ago Sex Assigned at Date Recorded Not on file documented as of this encounter Progress Notes Melina Payan MD - 03/12/2020 1:00 PM EDT [facility]--Initial Consultation [...] Social History: 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 They have [...] medications for this visit. Allergies Penicillins and Fvrnrqf-opx-skf reductase inhibitors Physical Exam not performed telehealth Assessment Jovany is a very high risk 75-year-old man who suffered a STEMI complicated by A. fib, cardiogenic shock, and a CVA. He has multiple cardiovascular risk factors including peripheral artery disease, hyperlipidemia (elevated LDL, depressed HDL), a 35-xuho-kcgp history of smoking, and prediabetes. Jovany quit [...] but Jovany replied: I can't drive to [place] every 2 weeks for that. I explained [...] hypothyroidism documented in this encounter Care Teams Sonographer Relationship Specialty Start Date End Date Jovany Lott MD PCP - General Family Medicine 02/05/20 [place] [address] documented as of this encounter
--- OUTSIDE RECORDS SUMMARY | 2022-03-30 10:57 | XMS_ITS | Encounter Summary ---
:1945 Author Organization [facility] [place] [address] Care Team Providers Name Role Phone France Lam MD Primary Care Provider Encounter Details Date Type Department Care Team Description 12/24/[address] [facility] Cathy Jay [facility] [place] [address] Social History Tobacco Use Types Packs/Day [...] 12/28. Faxed push request to [facility] Telephone Encounter - Elza Bradshaw - 12/25/2019 11:50 AM EDT Called [place] [facility] [employer] technical sales representatives I spoke with patient has plan N and does not require authorization. Order faxed with demos to [facility]. Postponing to allow time for scheduling. Telephone Encounter - Cathy Jay - 12/24/2019 11:42 AM EDT Patient needs f/u appointment(s): With [facility] on/around 01/13 3 weeks TOV, s/p Intracranial hemorrhage, CT-[facility] prior 1. [place] [facility] [employer] [facility]? ~~~~~~~~~~~~~~~~~~~~~~~~~~~~~~~~~~~~~~~~~~~~~~~~~~~~~~ Alfreda Salas APRN Sent: Maria Victoria December 23, 2019 ??7:39 PM To: [facility] Circular Knife Machine Cutter Jovany Hi ( ) : 1945> ?? Follow-up and Dispositions Check-out Note: Follow up head CT and TOV in 3 weeks unless vision worsens or he develops new symptoms in meantime ([facility] for CT) documented in this encounter Plan of Treatment Not on filedocumented as of this encounter Visit Diagnoses Not on filedocumented in this encounter Care Teams Automation Test Developer Relationship Specialty Start Date End Date France Lam MD PCP - General 05/02/13 02/04/20 [address] [place] [address] documented as of this encounter
--- OUTSIDE RECORDS SUMMARY | 2022-03-30 10:57 | XMS_ITS | Encounter Summary ---
:1945 Author Organization [facility] [place] [address] Care Team Providers Name Role Phone France Lam MD Primary Care Provider Encounter Details Date Type Department Care Team Description 01/16/2020 Telephone Vascular Surgery at [facility] Ryan Tran, [place] [address] Social History Tobacco Use Types Packs/Day [...] fidelina. Ryan Tran, MSN, RN-BC, NCTTP Tobacco Rechecker [facility] Pager #[phone] documented in this encounter Plan of Treatment Not on filedocumented as of this encounter Visit Diagnoses Not on filedocumented in this encounter Care Teams Textile Worker Relationship Specialty Start Date End Date France Lam MD PCP - General 05/02/13 02/04/20 [address] [facility] [place] [address] documented as of this encounter
--- OUTSIDE RECORDS SUMMARY | 2022-03-30 10:57 | XMS_ITS | Encounter Summary ---
:1945 Author Organization [facility] Address [address] [place] [address] Care Team Providers Name Role Phone Jennifer Gomez BATTERY REPAIRER Primary Care Provider Encounter Details Date Type Department Care Team Description 02/15/2022 Lab Requisition [facility] Outr Resulting Lab, Pathology & Laboratory Provider [facility] [address], [place] [id number] Social History Tobacco Use Types Packs/Day Years [...] Free 9.3 (H) 2.8 - 5.3 pg/mL [facility] Specimen Blood - Venous blood (substance) Performing Organization Address City/State/ZIP Code Phon e Number [facility] [address] [place] [address] SERVICES documented in this encounter Visit Diagnoses Not on filedocumented in this encounter Care Teams Community Health Coordinator Relationship Specialty Start Date End Date Jennifer Gomez, BATTERY REPAIRER PCP - General 05/10/15 [facility] [address] [place], [place] [id number] documented as of this encounter
--- OUTSIDE RECORDS SUMMARY | 2022-03-30 10:58 | XMS_ITS | Encounter Summary ---
:1945 Author Organization [facility] [place] [address] Care Team Providers Name Role Phone France Lam MD Primary Care Provider Reason for Referral Consultation (Routine) - Specialty Diagnoses / Procedures Referred By Contact Refer red To Contact Cardiology Diagnoses Acute ST elevation myocardial infarction (STEMI) of inferior wall Darrell Glasgow MD [facility] D [place] [address] Referral ID Status Reason Start Date Expiration Date Visits V isits Requested Authorized [id number] Consult, 12/08/2019 06/05/2020 1 1 Test & Treat Consultation (Routine) - Closed Specialty Diagnoses / Referred By Contact Referred To Contact Procedures Cardiac Rehabilitation Diagnoses ST elevation myocardial infarction involving right coronary artery Gretchen Yoon, Cardiac Rehab, [address] [place] [id number] Fax: Referral ID Status Reason Start Date Expiration Date Visits V isits Requested Authorized [id number] Closed Consult, 12/08/2019 06/05/2020 36 36 Test & Treat Reason for Visit Auth/Cert Specialty Diagnoses / Procedures Referred By Contact Refer red To Contact Diagnoses STEMI (ST elevation myocardial infarction) STEMI Procedures CARDIAC CATHETERIZATION Referral ID Status Reason Start Date Expiration Date Visits Requ ested Visits Authorized [id number] 1 1 Encounter Details Date Type Department Care Team Description 11/29/2019 - Hospital Encounter Cardiac Special YoungBarbra MD [facility] [place] [address] ST elevation myocardial infarction invol ving left main coronary artery; 12/08/2019 Care Unit Paris Lozano MD [facility] [place] [address] ST elevation myocardial infarction invol ving right coronary artery; [facility] Edema of upper extremity; Hospital Intracranial hemorrhage; [facility] Paroxysma l atrial fibrillation; Drive Acute pulmonary embolism, un specified pulmonary embolism type, unspecified whether acute cor pulmonale present; [place], [place] Acute ST elevat ion myocardial infarction (STEMI) of inferior wall [id number] Social History Tobacco Use Types Packs/Day Years [...] Luis Salinas Patient Age: 74 y.o. Language: Argentine Race: White Ethnicity: Not nor Admit date: [...] months on: antiplatelet therapy at discretion of manager grocery - Repeat TTE in 3 months to reassess LV function - Repeat BMP in 1-2 weeks given recent start lisinopril - Referred to lipid clinic for consideration of PCSK-9 inhibitor given STEMI with intolerance of statins - Started on amiodarone this admission for recurrent rapid atrial flutter with rates ~170, recommendcontinued assessment of necessity of rhythm control strategy with manager grocery - Amiodarone monitoring recommendations as below - [...] please contact your inpatient physician through the [facility] Hand Fretted Instrument Maker . Issues after hours and on weekends [...] took two full strength aspirinand came to [facility] ED. At there was found to [...] and Compazine. He was transferred directly to [facility] via [facility] for further management. Patient had an emergent PCI with 3 MACARIO stents placed to his RCA, with mild disease of LCX (report pending) at [facility]. He was found to be persistently hypotensive requiring Levo up to 10mcg/min. He was transferred to [facility] after the cath procedure. Bedside RHC showed CI 2.12, PAWP 11, PAP 38/15 indicating hypovolemic state. He received 1L bolus of NS with improvement of his blood pressure to 124/61. History of PAD, HLD - had side reactions to statins - so taking niacin and red rye grain. Chronic active smoker with more than 65 pack years. Family history of [place] in father and two uncles. He's takingbaby [...] drip as described above. On arrival at [facility] he was taken for [...] Electronically signed by: Estefani Harris [facility] ([phone]), at 11/29/2019 4:[address] Head wo Contrast (Generic) (Exam End: 11/30/2019 10:41 AM) Impression Focal hemorrhage with small amount of adjacent edema projecting in the region of the left optic tract. Thank you for letting us participate in the care of this patient. For questions regarding this report, please contact the number below. Electronically signed by: [facility] ([phone]), at 11/30/2019 12:[address] Head wo [...] below. Electronically signed by: Angel Luis [facility] ([phone]), at 11/30/2019 5:[address] Angiogram [place] (Exam End: 11/30/2019 4:36 PM) Impression Head CT: Stable hemorrhage in the region of the left optic tract. CTA: Negative exam. No abnormal vasculature in the area of hemorrhage. Thank you for letting us participate in the care of this patient. For questions regarding this report, please contact the number below. Electronically signed by: Angel Luis Barboza MD, [facility] ([phone]), at 11/30/2019 5:04 PM MRI Brain wo [...] by: Angel Luis Barboza MD, [facility] ([phone]), at 12/01/2019 8:02 PM XR Chest One [...] Electronically signed by: Roselyn Luciano [facility] ([phone]), at 12/04/2019 6:16 PM MRI Brain wwo [...] ??? Penicillins Pt doesn't remember reaction ??? Kdyccwq-Hqd-Opj Reductase Inhibitors Stiff neck, upset stomach, back [...] medications at another hospital and then at [facility] you had a stent [...] FOR ONE MONTH AND THEN STOP. Your manager grocery may tell you to start this medication again after one year. Clopidogrel (Plavix) 75 mg daily - This medication will help prevent clots from forming in your blood, which will help protect the stent that was placed in your heart vessel. TAKE THIS FOR ONE YEAR ANDTHEN DISCUSS WITH YOUR GAS ENGINEER WHETHER TO STOP. Amiodarone 400mg twice daily [...] follow up: Your primary care provider and manager grocery will manage your blood thinner (apixaban). You do not need lab monitoring of this medication. Diet: Please consume a healthy diet low in cholesterol Follow up Appointments: 12/10/2019 at 3:10PM with PCP Angel Luis Lott Future Appointments Date Time Provider Department Center 12/23/2019 1:30 PM Alfreda Salas APRN [address] 12/26/2019 9:40 AM Merlin Sanchez MD [facility] CARD 4A [facility] 12/30/2019 3:40 PM Gretchen Yoon MD [facility] 4A [facility] Future Appointments and Orders Future Appointments and Orders Future Appointments Provider Department Dept Phone 12/23/2019 1:30 PM Alfreda Salas APRN Neurosurgery at [facility] Arrive at: Home [phone] Please do not come in for this visit. Your provider will call you at the number you provided. 12/26/2019 9:40 AM Merlin Sanchez MD Cardiology at [facility] Arrive at: Home [phone] Please do not come in for this visit. Your provider will call you at the number you provided. 12/30/2019 3:40 PM Gretchen Yoon MD Cardiology at [facility] Arrive at: Home [phone] Please do not come in for this visit. Your provider will call you at the number you provided. Future Orders Complete By Expires Referral to Cardiac Rehab [EHO880 Custom] As directed Process Instructions: If no progress note charted, please enter Clinical details in comments. Scheduling Instructions: Questions: My question or request is: STEMI. Cardiac rehab at [facility] Referral to [facility] [REF43 Custom] As directed Process Instructions: If no progress note charted, please enter Clinical details in comments. Scheduling Instructions: Questions: My question or request is: patient with inferior stemi with history of statin allergy (rash) - please evaluate for psck9 inhibitor. Referral to Home Health - at DISCHARGE [ZQE0510 CPT(R)] As directed Process Instructions: Scheduling Instructions: Comments: DOCUMENTATION FOR VNA SERVICES PATIENT'S LOCATION: [address] [phone] (home) Crime Scene Investigator's Name: Self In discussion with the attending physician, it is certified that this patient is under his/her care and that MD, or an VIDEO SPECIALIST, TAKE OUT WAITER, or PA who is working directly with him/her, had a mgaw-ub-ihta encounter that meets the physician vszt-ue-lngc encounter requirements with this patient on 12/07/2019. [...] Affairs [facility], PHONE: [phone] FAX: [phone] Start of care: 24-48 hours after hospital [...] MD [address] / [place] [address] All A agencies which cover the area [...] info: PCP Your PCP: France Lam MD [phone] For questions regarding this document or issues relating to this hospitalization on the Cardiology Service, please contact your inpatient physician through the [facility] Hand Fretted Instrument Maker . Issues after hours and on weekends will be handled by the Complaint Adjuster on-call. Patient Instructions: Neurology Your Diagnosis: Left [...] appointment in the neurology clinic at [facility]. See below for the appointment time. [...] 1:30 PM Alfreda Salas APRN Neurosurgery at [facility] Arrive at: Home [phone] Please do not come in for this visit. Your provider will call you at the number you provided. 12/26/2019 9:40 AM Merlin Sanchez MD Cardiology at [facility] Arrive at: Home [phone] Please do not come in for this visit. Your provider will call you at the number you provided. 12/30/2019 3:40 PM Gretchen Yoon MD Cardiology at [facility] Arrive at: Home [phone] Please do not come in for this visit. Your provider will call you at the number you provided. Future Orders Complete By Expires Referral to Cardiac Rehab [[id number] Custom] As directed Process Instructions: If no progress note charted, please enter Clinical details in comments. Scheduling Instructions: Questions: My question or request is: STEMI. Cardiac rehab at [facility] Referral to [facility] [REF43 Custom] As directed Process Instructions: If no progress note charted, please enter Clinical details in comments. Scheduling Instructions: Questions: My question or request is: patient with inferior stemi with history of statin allergy (rash) - please evaluate for psck9 inhibitor. Referral to Home Health - at DISCHARGE [CPQ3183 CPT(R)] As directed Process Instructions: Scheduling Instructions: Comments: DOCUMENTATION FOR VNA SERVICES PATIENT'S LOCATION: [address] [phone] (home) Crime Scene Investigator's Name: Self In discussion with the attending physician, it is certified that this patient is under his/her care and that MD, or an VIDEO SPECIALIST, TAKE OUT WAITER, or PA who is working directly with him/her, had a chrv-pg-bzzd encounter that meets the physician elac-xu-yunt encounter requirements with this patient on 12/07/2019. [...] Affairs [facility], PHONE: [phone] FAX: [phone] Start of care: 24-48 hours after hospital [...] France Lam MD [address] / [facility] [address] All A agencies which cover the area [...] contact info: PCP Discharge References/Attachments Atrial Fibrillation ([place]) Cardiac Rehabilitation ([place]) Heart Failure ([place]) Heart Failure: Limiting Sodium ([place]) Hemorrhagic Stroke: General Info ([place]) Smoking: Stopping ([place]) Stroke Rehabilitation: General Info ([place]) Pulmonary Embolism ([place]) Riki Stevens MD PGY-3, Internal Medicine Cardiology S2, #4190 Associated attestation - Paris Dodd MD - 12/09/2019 4:44 PM EDT Cardiology Attending Discharge Addendum I was the assigned attending manager grocery for this clinical encounter. For the purposes [...] complications include novel onset, paroxysmal atrial fibrillation [[id number]: 5] & L-sided diplopia with potential hemineglect [...] My contact information: Paris Matt MD MPH [place] [phone] (office); Pager #[phone] Email: [email or web address] documented in this encounter Discharge Instructions Patient InstructionsFiRiki de jesus MD - 12/02/2019 9:56 AM EDT Images from the original note were not included. Why you were hospitalized: You had a heart attack. You received clot-busting medications at another hospital and then at [facility] you had a stent [...] FOR ONE MONTH AND THEN STOP. Your manager grocery may tell you to start this medication again after one year. Clopidogrel (Plavix) 75 mg daily - This medication will help prevent clots from forming in your blood, which will help protect the stent that was placed in your heart vessel. TAKE THIS FOR ONE YEAR ANDTHEN DISCUSS WITH YOUR GAS ENGINEER WHETHER TO STOP. Amiodarone 400mg twice daily [...] follow up: Your primary care provider and manager grocery will manage your blood thinner (apixaban). You do not need lab monitoring of this medication. Diet: Please consume a healthy diet low in cholesterol Follow up Appointments: 12/10/2019 at 3:10PM with PCP Angel Luis Lott Future Appointments Date Time Provider Department Center 12/23/2019 1:30 PM Alfreda Salas APRN [facility] [id number] [facility] 12/26/2019 9:40 AM Merlin Sanchez MD [facility] CARD 4A [facility] 12/30/2019 3:40 PM Gretchen Yoon MD [facility] CARD 4A [facility] Future Appointments and Orders Future Appointments and Orders Future Appointments Provider Department Dept Phone 12/23/2019 1:30 PM Alfreda Salas APRN Neurosurgery at [facility] Arrive at: Home [phone] Please do not come in for this visit. Your provider will call you at the number you provided. 12/26/2019 9:40 AM Merlin Sanchez MD Cardiology at [facility] Arrive at: Home [phone] Please do not come in for this visit. Your provider will call you at the number you provided. 12/30/2019 3:40 PM Gretchen Yoon MD Cardiology at [facility] Arrive at: Home [phone] Please do not come in for this visit. Your provider will call you at the number you provided. Future Orders Complete By Expires Referral to Cardiac Rehab [[id number] Custom] As directed Process Instructions: If no progress note charted, please enter Clinical details in comments. Scheduling Instructions: Questions: My question or request is: STEMI. Cardiac rehab at [facility] Referral to [facility] [REF43 Custom] As directed Process Instructions: If no progress note charted, please enter Clinical details in comments. Scheduling Instructions: Questions: My question or request is: patient with inferior stemi with history of statin allergy (rash) - please evaluate for psck9 inhibitor. Referral to Home Health - at DISCHARGE [[id number] CPT(R)] As directed Process Instructions: Scheduling Instructions: Comments: DOCUMENTATION FOR VNA SERVICES PATIENT'S LOCATION: [address] [phone] (home) Crime Scene Investigator's Name: Self In discussion with the attending physician, it is certified that this patient is under his/her care and that MD, or an VIDEO SPECIALIST, TAKE OUT WAITER, or PA who is working directly with him/her, had a yxio-fs-fqxw encounter that meets the physician hwww-fo-mkbn encounter requirements with this patient on 12/07/2019. [...] Affairs [facility], PHONE: [phone] FAX: [phone] Start of care: 24-48 hours after hospital [...] MD [address] / [place] [address] All A agencies which cover the area [...] info: PCP Your PCP: France Lam MD [phone] For questions regarding this document or issues relating to this hospitalization on the Cardiology Service, please contact your inpatient physician through the [facility] Hand Fretted Instrument Maker . Issues after hours and on weekends will be handled by the Complaint Adjuster on-call. Patient Instructions: Neurology Your Diagnosis: Left [...] appointment in the neurology clinic at [facility]. See below for the appointment time. If you do not have an appointment, you will be called with a time/date for this appointment. ??? Primary Care Provider: Please follow up with your Primary Care Provider within one to 2 weeks ofdischarge. AttachmentsThe following attachments cannot be sent through Care Everywhere. Atrial Fibrillation ([place])Cardiac Rehabilitation ([place])Heart Failure ([place])Heart Failure: Limiting Sodium ([place])Hemorrhagic Stroke: General Info ([place])Smoking: Stopping ([place])Stroke Rehabilitation: General Info ([place])Pulmonary Embolism ([place])documented in this encounter Medications at Time of [...] consulted in the interim. Vikash Rodriguez Pager: [phone] Paris Dodd MD - 12/08/2019 8:57 AM [...] complications include novel onset, paroxysmal atrial fibrillation [BNT2WK3EGXG: 5] & L-sided diplopia with potential hemineglect [...] consulted in the interim. Vikash Rodriguez Pager: [phone] Paris Dodd MD - 12/07/2019 9:55 AM [...] complications include novel onset, paroxysmal atrial fibrillation [PPY9WO1ZUOA: 5] & L-sided diplopia with potential hemineglect [...] complications include novel onset, paroxysmal atrial fibrillation [FID1GQ8NXAL: 5] & L-sided diplopia with potential hemineglect [...] complications include novel onset, paroxysmal atrial fibrillation [JVZ8QH8NQXO: 5] & L-sided diplopia with potential hemineglect [...] today; additional complications include paroxysmal atrial fibrillation [UXM7NQ9PBWP: 4] c/b possible cardioembolic stroke, ICH from [...] length from neck/greatest diameter to back wall: MONTSERRATIAN 91, CAU 13: 19 mm CORTES 1, [...] a non-culprit artery. S/P DESx3 in the gdsvhfvc-kq-lnesaw RCA. Aspiration thrombectomy performed, and integrellin bolus [...] complications include novel onset, paroxysmal atrial fibrillation [JGQ3DD5LZBF: 5] & L-sided diplopia with potential hemineglect [...] R occipital cardioembolic stroke #Paroxysmal Afib with SD0WVZER2S score of 5 #New segmental bilateral PEs [...] Glasgow MD PGY1, Internal Medicine Cardiology S2, #4109 Associated attestation - Paris Dodd MD - 12/05/2019 2:59 PM EDT I was the assigned attending manager grocery for this clinical encounter. For the purposes [...] 12/04/2019 10:36 AM EDT Office of Care Management(OCM)/Neck Pinner(CM)/Discharge Planning Service: Cardiology S2 team CM Bernie Alexander,RN,BSN,MA,ACM pgr [phone] Reviewed record and in Cardiology Rounds with MD team,CMs, side piece coverer, ENTERTAINMENT DIRECTOR. Pt is anticipated ready for d/c later today. Met w pt re d/c plan and he continues to agree with home PT/OT/RN w [place]. His son is bringing his to pick him up together. Discussed Advance Directives and DPOAH- he states he has at home and designated his as primiary; he thought his PCP would have copy. Tel call to PCP who notes no DPOAH on file. Encouraged pt to take his AD to his PCP and to any [facility] appt for each to [...] complications include novel onset, paroxysmal atrial fibrillation [LNH6SP1LOAG: 4] & L-sided diplopia with potential hemineglect [...] a non-culprit artery. S/P DESx3 in the xjhdeidt-wv-egetep RCA. Aspiration thrombectomy performed, and integrellin bolus [...] complications include novel onset, paroxysmal atrial fibrillation [EFH3UX3GMHV: 5] & L-sided diplopia with potential hemineglect [...] R occipital cardioembolic stroke #Paroxysmal Afib with EZ9FEAAP1L score of 5 - No anticoagulation for [...] Glasgow MD PGY1, Internal Medicine Cardiology S2, #9221 I have seen the patient and reviewed [...] in my clinic. Gretchen Yoon MD Pager [phone] Derian Pascual RN - 12/03/2019 9:29 AM [...] Discharge: None Electronically signed: Derian Pascual RN, Neck Pinner Pgr: [phone] 12/03/2019 9:29 AM Gretchen Yoon [...] complications include novel onset, paroxysmal atrial fibrillation [FNH0VK1HBID: 4] & L-sided diplopia with potential hemineglect [...] a non-culprit artery. S/P DESx3 in the udlrjlrg-cw-jxnqym RCA. Aspiration thrombectomy performed, and integrellin bolus [...] complications include novel onset, paroxysmal atrial fibrillation [TOB0KD7PUSO: 5] & L-sided diplopia with potential hemineglect [...] [facility] and [facility] with [facility]CP. Patient voiced strong will to quit smoking now, understood that we have resources available for help. Plan [P]: --Neurologic-- # Concern for Left-Sided Diplopia, r/o Hemineglect # Concern for CVA, last-known well 11/29/19 - MRI showed possible cardioembolic stroke #Afib with VE8WRUZS3T score of 5 - Stroke Team Consulted; [...] Anticoagulation/Arrhythmia # Novel Onset, Paroxsymal Atrial Fibrillation [WCK1PO3UHBS: 5] - Hold off anticoagulation for at [...] w straight cath prn # Nutrition - [facility] Diet, 2g Na. -- [...] Glasgow MD PGY1, Internal Medicine Cardiology S2, #8441 I have seen the patient and reviewed the resident's above history and I agree with the details as written. The assessment and plan were formulated in discussion with me and I agree with them as documented. Gretchen Yoon MD Pager [phone] Raul Hein RN - 12/03/2019 5:55 AM [...] Negative mcL Appearance UA Clear Clear Spec Clark UA 1.026 1.006 - 1.030 Color UA [...] PGY3 Neurology Resident 12/01/2019 Vascular Neurology Pager [phone] Neurology Attending Attestation I evaluated the patient [...] documented. Deepthi Roman MD Vascular Neurology Standard [facility] Swallow Screen: This screen [...] diet as medical provider deems appropriate. Consider LAUNDRY HELPER consult for full evaluation and diet recommendations. [...] complications include novel onset, paroxysmal atrial fibrillation [IQB1DB9XYSJ: 4] & L-sided diplopia with potential hemineglect [...] a non-culprit artery. S/P DESx3 in the efsbaaez-mk-uskvxb RCA. Aspiration thrombectomy performed, and integrellin bolus [...] complications include novel onset, paroxysmal atrial fibrillation [OLP5XB2MYSO: 5] & L-sided diplopia with potential hemineglect [...] Anticoagulation/Arrhythmia # Novel Onset, Paroxsymal Atrial Fibrillation [MPX8DJ2JXWL: 5] - Hold off anticoagulation - pending [...] tamsulosin d/t low BP. # Nutrition - [facility] Diet -- Hematology/Oncology-- # [...] Glasgow MD PGY1, Internal Medicine Cardiology S2, #2170 I have seen the patient and reviewed [...] the ICU team. Gretchen Yoon MD Pager [phone] Natalia Claros APRN - 12/02/2019 8:38 AM [...] - We are signing off. Please page [phone] with any questions or concerns. For questions please call NS pager [phone] Natalia Claros APRN 12/02/2019 8:38 AM Clinical Documentation Improvement: Active Hospital Problems Diagnosis ??? Acute ST elevation myocardial infarction (STEMI) of inferior wall ??? Intracranial hemorrhage ??? Hyperlipidemia ??? Tobacco abuse ??? Claudication from peripheral vascular disease, left Resolved Hospital Problems No resolved problems to display. Tello Hsu, PHYSICAL ANTHROPOLOGIST - 12/02/2019 2:06 AM EDT 06/01/20 2010 [...] Scan in afternoon. Upon arrival back in [facility] placed on low flow NC [...] complications include novel onset, paroxysmal atrial fibrillation [[id number]: 4] & L-sided diplopia with potential hemineglect for which CVA evaluationto be pursued. Active Problems/Subjective: - 11/28: admitted for inferior STEMI, RV failure requiring pressor - got lytics, aspirin and plavix load, heparin gtt, and eptifibatide. 3 MACARIO stents to RCA. [place] cath - low wedge & CVP so [...] a non-culprit artery. S/P DESx3 in the qumbkyvu-fa-hgkxle RCA. Aspiration thrombectomy performed, and integrellin bolus [...] complications include novel onset, paroxysmal atrial fibrillation [[id number]: 4] & L-sided diplopia with potential hemineglect [...] Anticoagulation/Arrhythmia # Novel Onset, Paroxsymal Atrial Fibrillation [[id number]: 4] - Obtain: TTE - Pending CVA [...] tamsulosin d/t low BP. # Nutrition - [facility] Diet -- Hematology/Oncology-- # [...] MD, PGY1 PGY3, Internal Medicine Cardiology S2, #[id number] I have seen the patient and reviewed [...] down the line. Gretchen Yoon MD Pager [phone] ?? Gretchen Yoon MD Pager [phone] Natalia Claros APRN - 12/01/2019 1:33 AM [...] per primary team For questions please call Shark Punch pager [phone] Natalia Claros APRN 12/01/2019 7:42 AM Clinical Documentation Improvement: Active Hospital Problems Diagnosis ??? Acute ST elevation myocardial infarction (STEMI) of inferior wall ??? Intracranial hemorrhage ??? Hyperlipidemia ??? Tobacco abuse ??? Claudication from peripheral vascular disease, left Resolved Hospital Problems No resolved problems to display. Tello Hsu, PHYSICAL ANTHROPOLOGIST - 11/30/2019 8:44 PM EDT Respiratory Therapy [...] EDT Narrative:Visited in response to request for [employer] services. Pt was awake, alert, oriented and in bed. Assessment:Patient coping positively with stresses of illness/hospitalization at this time. Pt says that he is hoping to get better and pt is living with and has children and grandchildren. Pt haspurpose of life and has reason to get getter and to be with family. Outcome: Provided emotional and spiritual support and encouraging presence. [employer] services accepted.Conversation to build trusting relationship.Provided pastoral [...] complications include novel onset, paroxysmal atrial fibrillation [[id number]: 4] & L-sided diplopia with potential hemineglect for which CVA evaluationto be pursued. Active Problems/Subjective: - Overnight, CVP < 12 for which a total of 1 L IVF provided - Today AM, patient complains of subjectively reported, left-sided hemineglect with floaters and diplopia [see: exam]. - Otherwise, c/o neck pain 2/2 R IJ [place] & L radial A line. Otherwise, denies [...] a non-culprit artery. S/P DESx3 in the ptomrxbn-ws-yjfugt RCA. Aspiration thrombectomy performed, and integrellin bolus [...] complications include novel onset, paroxysmal atrial fibrillation [[id number]: 4] & L-sided diplopia with potential hemineglect [...] Anticoagulation/Arrhythmia # Novel Onset, Paroxsymal Atrial Fibrillation [[id number]: 4] - Obtain: TTE to confirm rhythm [...] tamsulosin d/t low BP. # Nutrition - [facility] Diet -- Hematology/Oncology-- # [...] MD, PGY3 PGY3, Internal Medicine Cardiology S2, #[id number] I have seen the patient and reviewed [...] down the line. Gretchen Yoon MD Pager [phone] Paola Capps RN - 11/30/2019 6:57 AM EDT PT still requiring 4 of levo, several attempts to titrate down (maps in 70;s) But maps would drop toless than 65. Pt very restless in bed Raising and lowering head denies pain . Integrillin stopped [id number] when bottle complete , urine tea colored [...] PCP: France Lam MD PCP phone #: [phone] Dark Room Attendant: None ID/Chief Complaint: Chest pain History of Present Illness: 74 y.o male with no significant PMH, was in usual state of health until yesterday when he woke up at 4am this morning with severe crushing substernal chest pain 10/. He took two full strength aspirin and came to [facility] ED. At there was found to [...] and Compazine. He was transferred directly to [facility] via [facility] for further management. Patient had an emergent PCI with 3 MACARIO stents placed to his RCA, with mild disease of LCX (report pending) at [facility]. He was found to be persistently hypotensive requiring Levo up to 10mcg/min. He was transferred to [facility] after the cath procedure. Bedside RHC showed CI 2.12, PAWP 11, PAP 38/15 indicating hypovolemic state. He received 1L bolus of NS with improvement of his blood pressure to 124/61. History of PAD, HLD - had side reactions to statins - so taking niacin and red rye grain. Chronic active smoker with more than 65 pack years. Family history of [place] in father and two uncles. He's takingbaby [...] ??? Penicillins Pt doesn't remember reaction ??? Wuluwcx-Fyg-Tnr Reductase Inhibitors Stiff neck, upset stomach, back pain Family History: Mother: Father: [place] 2 Uncles with MIs Social History: Tobacco: Current active smoker 1 ppd. 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 Vitals: Last value Range last [...] in the last 7068 hours. Invalid input(s): [id number] Heme: No results for input(s): LDH, HAPTOGLOBIN, [...] OSH prior to transfer and PCI at [facility]. Massive inferior STEMI with troponin level 20, currently in CVCC due to pressor requirement. BedsideRHC demonstrated evidence of elevated right sided heart failure, but his wedge was wnl. He received 1L bolus with improvement of his blood pressure and reduction of his pressor requirement. PLAN: Admit to Cardiology, S2 Team Pager # [phone] #Inferior STEMI, LEYLA 149 - Resolving EKG [...] inferior STEMI s/p lytic therapy. Transferred to [facility] and underwent successful PCI of the RCA with MACARIO x3. Gretchen Yoon MD Pager [phone] documented in this encounter Procedure Notes Juventino [...] to the planned procedure. Hand Hygiene: The valve inserter did perform hand hygiene prior to [...] a suspected line-associated infection. Location of Procedure: [facility] Risks and Benefits: The risks [...] to the planned procedure. Hand Hygiene: The valve inserter did perform hand hygiene prior to [...] side:right An Introducer (PSI Kit) was used. Daykin. Insertion Side: right. Insertion Site: internal jugular. Catheter Details: Number of Lumens: 1 Catheter Type: heparin-coated The line was placed over a guidewire. Confirmation of Venous Placement: Venous placement was confirmed by transducing the pressure. Introducer Insertion Attempts: 1 Comments: Floating the [place]-Mo Catheter Attempts: 1 Comments: Sterile Dressing: Biopatch [...] better pt back in SR. Please page [phone] for any more cares or concerns Plan [...] complications include novel onset, paroxysmal atrial fibrillation [[id number]: 5]& L-sided diplopia with potential hemineglect for [...] Total Evaluation Minutes, Occupational Therapy: 10 Pager: [phone] FRANCINE Nuñez Occupational Therapy Rehabilitation Department Plan [...] complications include novel onset, paroxysmal atrial fibrillation [[id number]: 5] & L-sided diplopia with potential hemineglect [...] hand rails). Baseline Mobility: Independent. Drives. Shares coning machine operator with his , however her mobility is [...] plan as stated. Time IN / OUT: 7690-0760 Total Evaluation Minutes, Physical Therapy: 15(gtx1) Barbara Baldwin, PT Pager: [phone] Physical Therapy Inpatient Rehabilitation Department Plan of [...] he receives all he needs through the [facility]. Consult refused. Romain Tran, MSN, RN-, [facility] Tobacco Rotating Field Assembler [facility] Pager #[phone] Plan of Care - Romain Oglesby OT [...] complications include novel onset, paroxysmal atrial fibrillation [[id number]: 5] & L-sided diplopia with potential hemineglect [...] and measurable assessment of functional outcome. Pager: [phone] ROMAIN OGLESBY OT 12/03/2019 Occupational Therapy Rehabilitation [...] in an outpatient cardiac rehabilitation program at [facility] was discussed. Patient agrees to a referral to this program. His has been a cardiac rehab patient at [facility] and he is familiar with the [...] complications include novel onset, paroxysmal atrial fibrillation [[id number]: 5] & L-sided diplopia with potential hemineglect [...] hand rails). Baseline Mobility: Independent. Drives. 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 Time IN / OUT: 0671-5782 Total Evaluation Minutes, Physical Therapy: 25(eval, gtx1) Barbara Baldwin, PT Pager: [phone] Physical Therapy Inpatient Rehabilitation Department Consult Note [...] 12/01/2019 Nutritional Intake Current bed: [facility] A.I.R. Assessment: Patient is with an [...] Please contact JOHANNA NOBLES RN on pager [phone] or the wound care team at [phone] or pager [phone] skin and wound care concerns or questions. [...] making law. Any patient receiving carspousee at [facility] must abide by PA [...] (i) The agent with financial power of civil rights attorney or a conservator appointed in accordance [...] Insurance: N/A Prescription Coverage: Yes Preferred Pharmacy: [place], [place] Other: No Primary Care Provider: France Lam MD [phone] Patient/Caregiver Goals of Treatment: Return home Potential Needs for Transition of Care: Rehab/SNF: Based on discussions with the multi-disciplinary healthcare team, the patient would benefit from SNF level of care at discharge. ?? I have met with the patient to discuss discharge planning needs. I have provided the [facility], Officeof Care Management letter from the Manager Story pertaining to rehab referrals. I have also provided a letter describing our affiliations within the [facility] and educated them about their right [...] patient have requested referrals to: ?? 1. [facility] [address] [place] [id number] ?? [address]. [address] [place] [address] Note routed to Powder Coat Painter who will communicate referrals to facilities and provide any required information. Home Health: If therapies recommend home w/ VNA, the patient has been provided a list of Home Health Agencies/DME vendors which serve their preferred geographic area. A letter describing our affiliations was reviewed with them and they were educated about their right to choose where referrals are placed. Patient requests referral to [facility] [employer]. PHONE: [phone] FAX: [phone] Referral routed to the Powder Coat Painter for matching with agency/vendor and to provide [...] Insured w/ Medicare. Gets medications filled at [facility] in [place], [place]. Son to transport at discharge Plan: Discharge dispo depending on patient's physical recovery; SNF vs home w/ VNA. A member of the Care Management team will continue to monitor progress, follow for continuity of care and assist with transition of care planning. Derian Pascual, NIURKA Pager: [phone] Plan of Care - Estefani Baeza RN [...] ??? Penicillins Pt doesn't remember reaction ??? Jjfmxtm-Hgz-Rfj Reductase Inhibitors Stiff neck, upset stomach, back [...] noncontrast head CT and CT of the bent[place] of [place] at 1600 hrs. We will [...] vision concerning for stroke. Patient presented to [facility] in transfer for a [...] ??? Penicillins Pt doesn't remember reaction ??? Jndyojv-Frx-Czi Reductase Inhibitors Stiff neck, upset stomach, back [...] file Gets together: Not on file Attends worship service: Not on file Active member of [...] L Elbow flexion 5/5 R, 5/5 L Enterprise Application Administrator LE: 5/5 R, 5/5 L Hip flexion [...] PGY3 Neurology Resident 11/30/2019 Vascular Neurology Pager [phone] Standard [facility] Swallow Screen: This screen [...] diet as medical provider deems appropriate. Consider LAUNDRY HELPER consult for full evaluation and diet recommendations. [...] Afib admitted s/p thrombolysis and Cath-Stent to [facility] who developed R sided visual [...] Evan Mejia MD Department of Neurology [facility] Brief Op Note - Gretchen Yoon MD - 11/29/2019 8:38 PM EDT Brief Operative Note Patient Name: Angel Luis Salinas : [id number] MR#: [id number] Case Date: 11/29/2019 Surgeon: Surgeon(s) and Role: * Gretchen Yoon MD - Primary * Aidan Ward MD - Fellow Preoperative diagnosis: Inferior STEMI Postoperative diagnosis: Inferior STEMI Procedure(s) (LRB): CARDIAC CATHETERIZATION (N/A) Findings: Discrete 90% stenosis in the prox-to-mid RCA. Severe diffuse disease in the distal vessel. Discrete LCX stenosis in a non-culprit artery. S/P DESx3 in the tqzfyogx-xn-idofxt RCA. Aspiration thrombectomy performed, and integrellin bolus [...] are i n the results section. CT [place] W STAT 11/30/2019 4:36 Res [...] athologist Signature Potassium 3.9 3.5 - 5.0 [facility] mmol/L [facility] Comment: Please note: ??Patients with [...] Organization Address City/State/[place] [address] (ABNORMAL) Hemogram (12/08/2019 12:39 PM EDT) Analysis Performed At Patho logist Time Signature WBC 9.9 (H) 4.0 - 9.5 [facility] x10(3)/[facility] LABORATORY RBC 4.51 (L) 4.58 - [place] DOV 5.54 [facility] x10(6)/[facility] LABORATORY Hemoglobin 13.0 (L) 13.7 - [place] 16.5 gm/dL [facility] Hematocrit 40.5 40.5 - [place] D[place] 48.5 % [facility] MCV 89.8 82.9 - [facility] DOV 93.1 [facility] LABORATORY MCH 28.8 27.5 - [place] 32.1 pg [facility] MCHC 32.1 32.0 - [place] 35.7 gm/dL [facility] Platelets 214 145 - 357 [facility] x10(3)/[facility] LABORATORY RDWSD 49.2 (H) 36.0 - [place] D[place] 45.0 [facility] LABORATORY RDWCV 15.1 (H) 11.4 - [place] D[place] 13.8 % [facility] MPV 12.1 7.6 - 12.9 [facility] nRBC % Auto 0.0 % [facility] LABORATORY nRBC Abs Auto 0.000 0.000 - [place] DOV 0.000 [facility] x10(3)/[facility] LABORATORY Specimen Anatomical Collection Method Collection Time Receive d Time (Source) Location / / Volume Laterality Blood specimen 12/08/2019 12:39 0 (specimen) PM EDT 12:47 PM EDT Resulting Agency Comment Spec In Lab Gretchen Yoon MD HEMATOLOGY ORDERABLES Performing Organization Address City/State/ZIP Code Phon e Number [address] Hepatic Function Panel (12/08/2019 6:28 AM EDT) athologist Signature Total Protein 6.6 6.1 - 8.0 [facility] DOV gm/dL [facility] Albumin 3.2 3.2 - 5.2 [place] gm/dL [facility] AST 18 0 - 39 [place] unit/L [facility] ALT 13 0 - 55 [place] unit/L [facility] Alk Phos 64 40 - 130 [facility] DOV unit/L [facility] Total 0.4 0.2 - 1.3 [facility] Bilirubin mg/dL [facility] Bili, Direct 0.1 0.0 - 0.3 [facility] DOV mg/dL [facility] Specimen Anatomical Collection Method Collection Time Receive d Time (Source) Location / / Volume Laterality Blood specimen Venous Draw / 12/08/2019 6:28 AM 2019 6:36 (specimen) Unknown EDT AM EDT Resulting Agency Comment Spec In Lab Riki Stevens MD CHEMISTRY ORDERABLES Performing Organization Address City/[facility]/ZIP Code Phon e Number [address] (ABNORMAL) TSH (12/08/2019 6:28 AM EDT) athologist Signature TSH 5.27 (H) 0.27 - 4.20 [facility] ODV mcIU/mL [facility] Specimen Anatomical Collection Method Collection Time Receive d Time (Source) Location / / Volume Laterality Blood specimen Venous Draw / 12/08/2019 6:28 AM 2019 6:36 (specimen) Unknown EDT AM EDT Resulting Agency Comment Spec In Lab Darrell Glasgow MD CHEMISTRY ORDERABLES Performing Organization Address City/[facility]/ZIP Code Phon e Number [address] Potassium (12/08/2019 6:28 AM EDT) P athologist Signature Potassium 4.2 3.5 - 5.0 [facility] mmol/L [facility] Comment: Please note: ??Patients with [...] City/State/ZIP Code Phon e Number [place] [id number] (ABNORMAL) Differential, Automated (12/08/2019 12:43 AM EDT) Patholo gist Method Time Signature Neutrophils % 60.7 % [facility]OR[facility]ORY Neutr Abs (ANC) 6.81 (H) 1.70 - [facility] 6.10 [facility] x10(3)/[facility] LABORATORY Lymphocytes % 23.4 % [facility] Lymphocytes Abs 2.6 0.9 - 3.2 [facility] x10(3)/[facility] LABORATORY Monocytes % 10.0 % [facility]ORY Monocyte Abs 1.1 (H) 0.3 - 0.9 [facility] x10(3)/[facility] LABORATORY Eosinophils % 3.7 % [facility] LABOR[facility]ORY Eosinophils Abs 0.4 0.0 - 0.4 [facility] x10(3)/[facility] LABORATORY Basophils % 1.2 % [facility]ORY Basophils Abs 0.1 0.0 - 0.1 [facility] x10(3)/[facility] LABORATORY Immature Gran % 1.00 % [facility] Comment: Immature granulocytes(IG's)percentage an d absolute count will include metamyelocytes, myelocytes, and promyelo cytes. Blood smears from CBCs yielding IG's will be scanned manually for concor dance. If this scan disagrees with the automated IG or if promyelocytes are not ed, a manual differential will be performed. Pita Gran Abs 0.11 (H) 0.00 - 0.04 x10(3)/[facility] LABORATORY Specimen Anatomical Collection Method Collection Time Receive d Time (Source) Location / / Volume Laterality Blood specimen 12/08/2019 12:43 0 (specimen) AM EDT 12:52 AM EDT Resulting Agency Comment Spec In Lab Riki Stevens MD HEMATOLOGY ORDERABLES Performing Organization Address City/State/[place] [address] (ABNORMAL) Hemogram (12/08/2019 12:43 AM EDT) Analysis Performed At Patho logist Time Signature WBC 11.2 (H) 4.0 - 9.5 [facility] x10(3)/[facility] LABORATORY RBC 4.46 (L) 4.58 - [facility] DOV 5.54 [facility] x10(6)/[facility] LABORATORY Hemoglobin 13.1 (L) 13.7 - [facility] 16.5 gm/dL [facility] Hematocrit 40.5 40.5 - [facility] DOV 48.5 % [facility] MCV 90.8 82.9 - [facility] 93.1 [facility] LABORATORY MCH 29.4 27.5 - [facility] DOV 32.1 pg [facility] MCHC 32.3 32.0 - [facility] DOV 35.7 gm/dL [facility] Platelets 215 145 - 357 [facility] x10(3)/[facility] LABORATORY RDWSD 49.8 (H) 36.0 - [facility] DOV 45.0 [facility] LABORATORY RDWCV 15.2 (H) 11.4 - [facility] DOV 13.8 % [facility] LABORATORY MPV 12.3 7.6 - 12.9 [facility] LABORATORY nRBC % Auto 0.0 % [facility] LABORATORY nRBC Abs Auto 0.000 0.000 - [facility] DOV 0.000 [facility] x10(3)/[facility] LABORATORY Specimen Anatomical Collection Method Collection Time Receive d Time (Source) Location / / Volume Laterality Blood specimen 12/08/2019 12:43 0 (specimen) AM EDT 12:52 AM EDT Resulting Agency Comment Spec In Lab Riki Stevesn MD HEMATOLOGY ORDERABLES Performing Organization Address City/State/ZIP Code Phon e Number [address] Magnesium (12/08/2019 12:43 AM EDT) athologist Signature Magnesium 1.01 0.69 - 1.07 [facility] mmol/L [facility] Specimen Anatomical Collection Method Collection Time Receive d Time (Source) Location / / Volume Laterality Blood specimen 12/08/2019 12:43 0 (specimen) AM EDT 12:52 AM EDT Resulting Agency Comment Spec In Lab Gretchen Yoon MD CHEMISTRY ORDERABLES Performing Organization Address City/State/[place] [address] (ABNORMAL) BMP w/fasting Glucose (12/08/2019 12:43 AM EDT) P athologist Signature Glucose 106 (H) 65 - 99 [facility] Fasting mg/dL [facility] Comment: ?Fasting* Glucose Interpretive C [...] of Diabetes Mellitus, Position Statement from the [place] [employer]. ??Diabete s Care, Volume 33, Supplement 1, Jul 2009 BUN 14 10 - 20 mg/dL [facility] DOV [facility] LABORATORY Creatinine 1.16 0.80 - 1.50 mg/dL [...] estions. Chloride 99 98 - 107 mmol/L [facility] CO2 19 (L) 22 - 31 mmol/L [facility] Anion Gap 16 (H) 5 - 15 mmol/L [facility] LABORATORY Calcium 8.9 8.5 - 10.5 mg/dL [facility] LABOR[facility]ORY Estimated GFR 62 >=60 mL/min/1.73 m?? [facility] Comment: The eGFR was calculated using the CKD-EP I equation. As with all creatinine based estimates of kidney function, eGFR values calculated with the CKD-EPI equation are not accurate in patients wi th acute kidney failure, extremes of body mass or the acutely ill. [email or web address] [place] eGFR 72 >=60 mL/min/1.73 m?? [facility] Comment: The eGFR was calculated using the CKD-EP I equation. As with all creatinine based estimates of kidney function, eGFR values calculated with the CKD-EPI equation are not accurate in patients wi th acute kidney failure, extremes of body mass or the acutely ill. [email or web address] [place] Specimen Anatomical Collection Method Collection Time Receive d Time (Source) Location / / Volume Laterality Blood specimen 12/08/2019 12:43 0 (specimen) AM EDT 12:52 AM EDT Resulting Agency Comment Spec In Lab Gretchen Yoon MD CHEMISTRY ORDERABLES Performing Organization Address City/State/ZIP Code Phon e Number [place] [phone] Heparin (unfractionated) Level (12/08/2019 12:43 AM EDT) athologist Signature Heparin UFH 0.60 IU/mL [facility] LABORATORY Comment: Guidelines for therapeutic unfractionate [...] Organization Address City/State/[place] [address] Potassium (12/07/2019 8:39 PM EDT) athologist Signature Potassium 4.1 3.5 - 5.0 [facility] mmol/L [facility] Comment: Please note: ??Patients with [...] Organization Address City/State/ZIP Code Phon e Number [address] Potassium (12/07/2019 4:02 PM EDT) P athologist Signature Potassium 4.0 3.5 - 5.0 [facility] DOV mmol/L [facility] LABORATORY Comment: Please note: ??Patients with [...] Yoon MD CHEMISTRY ORDERABLES Performing Organization Address City/[facility]/[place] [address] (ABNORMAL) Hemogram (12/07/2019 4:02 PM EDT) Analysis Performed At Patho logist Time Signature WBC 17.4 (H) 4.0 - 9.5 [place] DOV x10(3)/[facility] LABORATORY RBC 4.58 4.58 - [place] DOV 5.54 [facility] x10(6)/[facility] LABORATORY Hemoglobin 13.5 (L) 13.7 - [place] DOV 16.5 gm/dL [facility] LABORATORY Hematocrit 40.8 40.5 - [place] DOV 48.5 % [facility] LABORATORY MCV 89.1 82.9 - [place] DOV 93.1 [facility] LABORATORY MCH 29.5 27.5 - [place] DOV 32.1 pg [facility] LABORATORY MCHC 33.1 32.0 - [place] DOV 35.7 gm/dL [facility] LABORATORY Platelets 238 145 - 357 [place] DOV x10(3)/[facility] LABORATORY RDWSD 48.8 (H) 36.0 - [place] DOV 45.0 [facility] LABORATORY RDWCV 15.0 (H) 11.4 - [facility] DOV 13.8 % [facility] LABORATORY MPV 12.2 7.6 - 12.9 [place] DOV [facility] LABORATORY nRBC % Auto 0.0 % [facility] LABORATORY nRBC Abs Auto 0.000 0.000 - [place] MONAE 0.000 [facility] x10(3)/[facility] LABORATORY Specimen Anatomical Collection Method Collection Time Receive d Time (Source) Location / / Volume Laterality Blood specimen 12/07/2019 4:02 PM 020 4:08 (specimen) EDT PM EDT Resulting Agency Comment Spec In Lab Gretchen Yoon MD HEMATOLOGY ORDERABLES Performing Organization Address City/[facility]/[place] [address] EKG 12 Lead (12/07/2019 [...] (Bezet) Calculated P -12 degrees MUSE SYSTEM Marceline Calculated R 10 degrees MUSE SYSTEM Marceline Calculated T -138 degrees MUSE SYSTEM Marceline INTERPRETATION Supraventricular tachycardia MUSE SYSTEM Low voltage [...] athologist Signature Potassium 4.2 3.5 - 5.0 [facility] mmol/L [facility] LABORATORY Comment: Please note: ??Patients with [...] EDT Resulting Agency Comment Spec In Lab Pairs Lagos MD CHEMISTRY ORDERABLES Performing Organization Address [facility] [place] [address] Heparin (unfractionated) Level (12/07/2019 11:43 AM EDT) athologist Signature Heparin UFH 0.59 IU/mL [facility] LABORATORY Comment: Guidelines for therapeutic unfractionate [...] HEMATOLOGY ORDERABLES Performing Organization Address [facility] [place] [address] Heparin (unfractionated) Level (12/07/2019 5:20 AM EDT) P athologist Signature Heparin UFH 0.53 IU/mL [facility] LABORATORY Comment: Guidelines for therapeutic unfractionate [...] Organization Address City/State/[place] [address] (ABNORMAL) Differential, Automated (12/07/2019 5:20 AM EDT) Patholo gist Method Time Signature Neutrophils % 62.4 % [facility] LABORATORY Neutr Abs (ANC) 5.46 1.70 - [facility] 6.10 [facility] x10(3)/[facility] LABORATORY Lymphocytes % 20.3 % [facility] LABORATORY Lymphocytes Abs 1.8 0.9 - 3.2 [facility] x10(3)/[facility] LABORATORY Monocytes % 11.0 % [facility] LABORATORY Monocyte Abs 1.0 (H) 0.3 - 0.9 [facility] x10(3)/[facility] LABORATORY Eosinophils % 4.5 % [facility] LABORATORY Eosinophils Abs 0.4 0.0 - 0.4 [facility] x10(3)/[facility] LABORATORY Basophils % 0.9 % [facility] LABORATORY Basophils Abs 0.1 0.0 - 0.1 [facility] x10(3)/[facility] LABORATORY Immature Gran % 0.90 % [facility] LABORATORY Comment: Immature granulocytes(IG's)percentage an d absolute count will include metamyelocytes, myelocytes, and promyelo cytes. Blood smears from CBCs yielding IG's will be scanned manually for concor dance. If this scan disagrees with the automated IG or if promyelocytes are not ed, a manual differential will be performed. Pita Gran Abs 0.08 (H) 0.00 - 0.04 x10(3)/[facility] LABORATORY Specimen Anatomical Collection Method Collection Time Receive d Time (Source) Location / / Volume Laterality Blood specimen 12/07/2019 5:20 AM 020 5:37 (specimen) EDT AM EDT Resulting Agency Comment Spec In Lab Riki Stevens MD HEMATOLOGY ORDERABLES Performing Organization Address City/State/[place] [address] (ABNORMAL) Hemogram (12/07/2019 5:20 AM EDT) Analysis Performed At Patho logist Time Signature WBC 8.7 4.0 - 9.5 [facility] x10(3)/[facility] LABORATORY RBC 4.20 (L) 4.58 - [facility] 5.54 [facility] x10(6)/[facility] LABORATORY Hemoglobin 12.3 (L) 13.7 - [facility] 16.5 gm/dL [facility] LABORATORY Hematocrit 37.4 (L) 40.5 - [facility] 48.5 % [facility] LABORATORY MCV 89.0 82.9 - [facility] 93.1 fL [facility] LABORATORY MCH 29.3 27.5 - [facility] 32.1 pg [facility] LABORATORY MCHC 32.9 32.0 - [place] MONAE 35.7 gm/dL [facility] LABORATORY Platelets 181 145 - 357 [place] MONAE x10(3)/[facility] LABORATORY RDWSD 47.7 (H) 36.0 - [place] MONAE 45.0 [facility] LABORATORY RDWCV 14.8 (H) 11.4 - M[place] MONAE 13.8 % [facility] LABORATORY MPV 12.3 7.6 - 12.9 [place] DOV [facility] LABORATORY nRBC % Auto 0.0 % [facility] LABORATORY nRBC Abs Auto 0.000 0.000 - [place] MONAE 0.000 [facility] x10(3)/[facility] LABORATORY Specimen Anatomical Collection Method Collection Time Receive d Time (Source) Location / / Volume Laterality Blood specimen 12/07/2019 5:20 AM 020 5:37 (specimen) EDT AM EDT Resulting Agency Comment Spec In Lab Riki Stevens MD HEMATOLOGY ORDERABLES Performing Organization Address City/[facility]/ZIP Code Phon e Number [address] Magnesium (12/07/2019 5:20 AM EDT) P athologist Signature Magnesium 0.89 0.69 - 1.07 [facility]L [facility] LABORATORY Specimen Anatomical Collection Method Collection Time Receive d Time (Source) Location / / Volume Laterality Blood specimen 12/07/2019 5:20 AM 020 5:37 (specimen) EDT AM EDT Resulting Agency Comment Spec In Lab Gretchen Yoon MD CHEMISTRY ORDERABLES Performing Organization Address City/[facility]/ZIP Code Phon e Number [address] (ABNORMAL) BMP w/fasting Glucose (12/07/2019 5:20 AM EDT) P athologist Signature Glucose 100 (H) 65 - 99 [facility] Fasting mg/dL [facility] LABORATORY Comment: ?Fasting* Glucose Interpretive C [...] of Diabetes Mellitus, Position Statement from the [place] [employer]. ??Diabete s Care, Volume 33, [...] estions. Chloride 101 98 - 107 mmol/L [facility] LABORATORY CO2 20 (L) 22 - 31 mmol/L [facility] LABORATORY Anion Gap 14 5 - 15 mmol/L [facility] LABORATORY Calcium 8.8 8.5 - 10.5 mg/dL [facility] LABORATORY Estimated GFR 87 >=60 mL/min/1.73 m?? [facility] LABORATORY Comment: The eGFR was calculated using the CKD-EP I equation. As with all creatinine based estimates of kidney function, eGFR values calculated with the CKD-EPI equation are not accurate in patients wi th acute kidney failure, extremes of body mass or the acutely ill. [email or web address] eGFR 101 >=60 mL/min/1.73 m?? [facility] LABORATORY Comment: The eGFR was calculated using the CKD-EP I equation. As with all creatinine based estimates of kidney function, eGFR values calculated with the CKD-EPI equation are not accurate in patients wi th acute kidney failure, extremes of body mass or the acutely ill. [email or web address] Specimen Anatomical Collection Method Collection Time Receive d Time (Source) Location / / Volume Laterality Blood specimen 12/07/2019 5:20 AM 020 5:37 (specimen) EDT AM EDT Resulting Agency Comment Spec In Lab Gretchen Yoon MD CHEMISTRY ORDERABLES Performing Organization Address [facility] [place] [address] Heparin (unfractionated) Level (12/06/2019 10:14 PM EDT) athologist Signature Heparin UFH 0.29 IU/mL [facility] LABORATORY Comment: Guidelines for therapeutic unfractionate [...] HEMATOLOGY ORDERABLES Performing Organization Address [facility] [place] [address] Head wo Contrast [...] For questions regarding this report, please contact [facility] number below. ? Narrative 12/06/2019 10:06 [...] calvari al soft tissues. Procedure Note Merari Clolins MD - 12/06/2019Formatting o f this note [...] Signature WBC 10.4 (H) 4.0 - 9.5 [facility] x[facility](3[facility] LABORATORY RBC 4.32 (L) 4.58 - [facility] DOV 5.54 [facility] x10(6)/[facility] LABORATORY Hemoglobin 12.5 (L) 13.7 - [facility] 16.5 gm/dL [facility] LABORATORY Hematocrit 38.4 (L) 40.5 - [facility] 48.5 % [facility] LABORATORY MCV 88.9 82.9 - [facility] 93.1 [facility] LABORATORY MCH 28.9 27.5 - [facility] DOV 32.1 pg [facility] LABORATORY MCHC 32.6 32.0 - [facility] 35.7 gm/dL [facility] LABORATORY Platelets 194 145 - 357 [facility] x10(3)/[facility] LABORATORY RDWSD 46.9 (H) 36.0 - [facility] 45.0 [facility] LABORATORY RDWCV 14.6 (H) 11.4 - [facility] 13.8 % [facility] LABORATORY MPV 11.9 7.6 - 12.9 [facility] LABORATORY nRBC % Auto 0.0 % [facility] LABORATORY nRBC Abs Auto 0.000 0.000 - [facility] DOV 0.000 [facility] x10(3)/[facility] LABORATORY Specimen Anatomical Collection Method Collection Time Receive d Time (Source) Location / / Volume Laterality Blood specimen 12/06/2019 4:20 PM 020 4:31 (specimen) EDT PM EDT Resulting Agency Comment Spec In Lab Gretchen Yoon MD HEMATOLOGY ORDERABLES Performing Organization Address City/State/[place] [address] Heparin (unfractionated) Level (12/06/2019 4:20 PM EDT) P athologist Signature Heparin UFH 0.30 IU/mL [facility] LABORATORY Comment: Guidelines for therapeutic unfractionate [...] Organization Address City/State/[place] [address] Heparin (unfractionated) Level (12/06/2019 10:02 AM EDT) athologist Signature Heparin UFH <0.04 IU/mL [facility] LABORATORY Comment: Guidelines for therapeutic unfractionate [...] Lagos MD HEMATOLOGY ORDERABLES Performing Organization Address City/[facility]/ZIP Code Phon e Number [address] Magnesium (12/06/2019 3:36 AM EDT) P athologist Signature Magnesium 0.86 0.69 - 1.07 [facility] mmol/L [facility] LABORATORY Specimen Anatomical Collection Method Collection Time Receive d Time (Source) Location / / Volume Laterality Blood specimen 12/06/2019 3:36 AM 020 3:45 (specimen) EDT AM EDT Resulting Agency Comment Spec In Lab Gretchen Yoon MD CHEMISTRY ORDERABLES Performing Organization Address City/[facility]/ZIP Code Phon e Number [address] (ABNORMAL) BMP w/fasting Glucose (12/06/2019 3:36 AM EDT) P athologist Signature Glucose 103 (H) 65 - 99 [facility] Fasting mg/dL [facility] LABORATORY Comment: ?Fasting* Glucose Interpretive C [...] of Diabetes Mellitus, Position Statement from the [place] [employer]. ??Diabete s Care, Volume 33, [...] estions. Chloride 103 98 - 107 mmol/L [facility] LABORATORY CO2 19 (L) 22 - 31 mmol/L [facility] LABORATORY Anion Gap 14 5 - 15 mmol/L [facility] LABORATORY Calcium 8.7 8.5 - 10.5 mg/dL [facility] LABORATORY Estimated GFR 85 >=60 mL/min/1.73 m?? [facility] LABORATORY Comment: The eGFR was calculated using the CKD-EP I equation. As with all creatinine based estimates of kidney function, eGFR values calculated with the CKD-EPI equation are not accurate in patients wi th acute kidney failure, extremes of body mass or the acutely ill. [email or web address] eGFR 99 >=60 mL/min/1.73 m?? [facility] LABORATORY Comment: The eGFR was calculated using the CKD-EP I equation. As with all creatinine based estimates of kidney function, eGFR values calculated with the CKD-EPI equation are not accurate in patients wi th acute kidney failure, extremes of body mass or the acutely ill. [email or web address] Specimen Anatomical Collection Method Collection Time Receive d Time (Source) Location / / Volume Laterality Blood specimen 12/06/2019 3:36 AM 020 3:45 (specimen) EDT AM EDT Resulting Agency Comment Spec In Lab Gretchen Yoon MD CHEMISTRY ORDERABLES Performing Organization Address City/State/ZIP Code Phon e Number [address] (ABNORMAL) Hemogram (12/06/2019 3:36 AM EDT) Analysis Performed At Patho logist Time Signature WBC 9.2 4.0 - 9.5 [facility] x[facility](3)/[facility] LABORATORY RBC 3.99 (L) 4.58 - [place] DOV 5.54 [facility] x10(6)/[facility] LABORATORY Hemoglobin 11.9 (L) 13.7 - [facility] 16.5 gm/dL [facility] LABORATORY Hematocrit 35.5 (L) 40.5 - [facility] 48.5 % [facility] LABORATORY MCV 89.0 82.9 - [facility] 93.1 [facility] LABORATORY MCH 29.8 27.5 - [place] DOV 32.1 pg [facility] LABORATORY MCHC 33.5 32.0 - [place] DOV 35.7 gm/dL [facility] LABORATORY Platelets 164 145 - 357 [facility] x10(3)/[facility] LABORATORY RDWSD 47.6 (H) 36.0 - [place] DOV 45.0 [facility] LABORATORY RDWCV 14.7 (H) 11.4 - [facility] 13.8 % [facility] LABORATORY MPV 11.9 7.6 - 12.9 [facility] LABORATORY nRBC % Auto 0.0 % [facility] LABORATORY nRBC Abs Auto 0.000 0.000 - [facility] DOV 0.000 [facility] x10(3)/[facility] LABORATORY Specimen Anatomical Collection Method Collection Time Receive d Time (Source) Location / / Volume Laterality Blood specimen 12/06/2019 3:36 AM 020 3:45 (specimen) EDT AM EDT Resulting Agency Comment Spec In Lab Gretchen Yoon MD HEMATOLOGY ORDERABLES Performing Organization Address City/[facility]/ZIP Code Phon e Number [address] (ABNORMAL) Differential, Automated (12/05/2019 10:52 PM EDT) Patholo gist Method Time Signature Neutrophils % 61.9 % [facility] LABORATORY Neutr Abs (ANC) 6.02 1.70 - [facility] 6.10 [facility] x10(3)/[facility] LABORATORY Lymphocytes % 22.4 % [facility] LABORATORY Lymphocytes Abs 2.2 0.9 - 3.2 [facility] x10(3)/[facility] LABORATORY Monocytes % 10.4 % [facility] LABORATORY Monocyte Abs 1.0 (H) 0.3 - 0.9 [facility] x10(3)/[facility] LABORATORY Eosinophils % 4.1 % [facility] LABORATORY Eosinophils Abs 0.4 0.0 - 0.4 [facility] x10(3)/[facility] LABORATORY Basophils % 0.7 % [facility] LABORATORY Basophils Abs 0.1 0.0 - 0.1 [facility] x10(3)/[facility] LABORATORY Immature Gran % 0.50 % [facility] LABORATORY Comment: Immature granulocytes(IG's)percentage an d absolute count will include metamyelocytes, myelocytes, and promyelo cytes. Blood smears from CBCs yielding IG's will be scanned manually for concor dance. If this scan disagrees with the automated IG or if promyelocytes are not ed, a manual differential will be performed. Pita Gran Abs 0.05 (H) 0.00 - 0.04 x10(3)/[facility] LABORATORY Specimen Anatomical Collection Method Collection Time Receive d Time (Source) Location / / Volume Laterality Blood specimen 12/05/2019 10:52 0 (specimen) PM EDT 10:59 PM EDT Resulting Agency Comment Spec In Lab Mandi Barrera MD HEMATOLOGY ORDERABLES Performing Organization Address City/State/[place] [address] (ABNORMAL) Hemogram (12/05/2019 10:52 PM EDT) Analysis Performed At [facility] logist Time Signature WBC 9.7 (H) 4.0 - 9.5 [facility] x10(3)/[facility] LABORATORY RBC 4.07 (L) 4.58 - [place] DOV 5.54 [facility] x10(6)/[facility] LABORATORY Hemoglobin 11.9 (L) 13.7 - [place] 16.5 gm/dL [facility] LABORATORY Hematocrit 36.4 (L) 40.5 - [place] 48.5 % [facility] LABORATORY MCV 89.4 82.9 - [facility] 93.1 [facility] LABORATORY MCH 29.2 27.5 - [place] DOV 32.1 pg [facility] LABORATORY MCHC 32.7 32.0 - [place] DOV 35.7 gm/dL [facility] LABORATORY Platelets 167 145 - 357 [facility] x10(3)/[facility] LABORATORY RDWSD 47.7 (H) 36.0 - [facility] 45.0 [facility] LABORATORY RDWCV 14.6 (H) 11.4 - [facility] 13.8 % [facility] LABORATORY MPV 12.1 7.6 - 12.9 [facility] LABORATORY nRBC % Auto 0.0 % [facility] LABORATORY nRBC Abs Auto 0.000 0.000 - [facility] 0.000 [facility] x10(3)/[facility] LABORATORY Specimen Anatomical Collection Method Collection Time Receive d Time (Source) Location / / Volume Laterality Blood specimen 12/05/2019 10:52 0 (specimen) PM EDT 10:59 PM EDT Resulting Agency Comment Spec In Lab Mandi Barrera MD HEMATOLOGY ORDERABLES Performing Organization Address City/State/[place] [address] Heparin (unfractionated) Level (12/05/2019 10:52 PM EDT) P athologist Signature Heparin UFH <0.04 IU/mL [facility] LABORATORY Comment: Guidelines for therapeutic unfractionate [...] Organization Address City/State/[place] [address] MRI Brain wwo Contrast [...] Time Signature WBC 8.7 4.0 - 9.5 [facility] x10(3)/[facility] LABORATORY RBC 4.17 (L) 4.58 - [facility] 5.54 [facility] x10(6)/[facility] LABORATORY Hemoglobin 12.4 (L) 13.7 - [facility] 16.5 gm/dL [facility] LABORATORY Hematocrit 37.0 (L) 40.5 - [facility] 48.5 % [facility] LABORATORY MCV 88.7 82.9 - [facility] 93.1 [facility] LABORATORY MCH 29.7 27.5 - [facility] 32.1 pg [facility] LABORATORY MCHC 33.5 32.0 - [facility] 35.7 gm/dL [facility] LABORATORY Platelets 173 145 - 357 [facility] x10(3)/[facility] LABORATORY RDWSD 47.3 (H) 36.0 - [facility] 45.0 [facility] LABORATORY RDWCV 14.6 (H) 11.4 - [facility] 13.8 % [facility] LABORATORY MPV 12.1 7.6 - 12.9 [facility] LABORATORY nRBC % Auto 0.0 % [facility] LABORATORY nRBC Abs Auto 0.000 0.000 - [facility] 0.000 [facility] x10(3)/[facility] LABORATORY Specimen Anatomical Collection Method Collection Time Receive d Time (Source) Location / / Volume Laterality Blood specimen 12/05/2019 1:00 PM 020 1:13 (specimen) EDT PM EDT Resulting Agency Comment Spec In Lab Gretchen Yoon MD HEMATOLOGY ORDERABLES Performing Organization Address City/State/[place] [address] EKG 12 Lead (12/05/2019 10:52 AM EDT) Component Value Ref Range Test Analysis Performed Pathologis t Method Time At Signature Ventricular rate 72 BPM MUSE SYSTEM Atrial Rate 72 BPM MUSE SYSTEM P-R Interval 138 ms MUSE SYSTEM QRS Duration 96 ms MUSE SYSTEM Q-T Interval 396 ms MUSE SYSTEM QTC Calculated 433 ms MUSE SYSTEM (Bezet) Calculated P Marceline 65 degrees MUSE SYSTEM Calculated R Marceline 13 degrees MUSE SYSTEM Calculated T Marceline 0 degrees MUSE SYSTEM INTERPRETATION Sinus rhythm Occasional Premature ventricular complexe s MUSE SYSTEM Possible Inferior infarct (cited on or before 29-NOV-2019) Abnormal ECG When compared with ECG of 04-DEC-2019 10:43, Sinus rhythm has replaced Atrial fibrillation Vent. rate has decreased BY ??86 BPM Confirmed by MD Ceja Daniel ([id number]) on 12/05/2019 3:55:22 PM Specimen Anatomical Collection Method Collection Time Receive d Time (Source) Location / / Volume Laterality 12/05/2019 10:52 12/05/2019 3:55 AM EDT PM EDT Paris Lagos MD ECG ORDERABLES Performing Organization Address City/State/ZIP Code Phon e Number MUSE SYSTEM Duplex Study for DVT, Bilat legs (12/05/2019 7:00 AM EDT) Component Value Ref Test Analysis Performed At [facility] Range Method Time Signature VB Text Department: Vascular Surgery Lab [email or web address] Report Patient: [id number] (ANGEL LUIS SALINAS) CPT: 37148 ICD10: I26.99 Referring Physician: GRETCHEN YOON ?? [...] athologist Signature Magnesium 0.87 0.69 - 1.07 [facility] mmol/L [facility] LABORATORY Specimen Anatomical Collection Method Collection Time Receive d Time (Source) Location / / Volume Laterality Blood specimen 12/05/2019 4:18 AM 020 4:31 (specimen) EDT AM EDT Resulting Agency Comment Spec In Lab Gretchen Yoon MD CHEMISTRY ORDERABLES Performing Organization Address City/[facility]/ZIP [facility] [place] [address] HOSPITAL LABORATORY Drive (ABNORMAL) BMP w/fasting Glucose (12/05/2019 4:18 AM EDT) P athologist Signature Glucose 104 (H) 65 - 99 [facility] Fasting mg/dL [facility] Comment: ?Fasting* Glucose Interpretive C [...] of Diabetes Mellitus, Position Statement from the [place] [employer]. ??Diabete s Care, Volume 33, [...] estions. Chloride 103 98 - 107 mmol/L [facility] CO2 21 (L) 22 - 31 mmol/L [facility] Anion Gap 12 5 - 15 mmol/L [facility] Calcium 8.8 8.5 - 10.5 mg/dL [facility] Estimated GFR 73 >=60 mL/min/1.73 m?? [facility] Comment: The eGFR was calculated using the CKD-EP I equation. As with all creatinine based estimates of kidney function, eGFR values calculated with the CKD-EPI equation are not accurate in patients wi th acute kidney failure, extremes of body mass or the acutely ill. [email or web address] [place] eGFR 84 >=60 mL/min/1.73 m?? [facility] Comment: The eGFR was calculated using the CKD-EP I equation. As with all creatinine based estimates of kidney function, eGFR values calculated with the CKD-EPI equation are not accurate in patients wi th acute kidney failure, extremes of body mass or the acutely ill. [email or web address] [place] Specimen Anatomical Collection Method Collection Time Receive d Time (Source) Location / / Volume Laterality Blood specimen 12/05/2019 4:18 AM 020 4:31 (specimen) EDT AM EDT Resulting Agency Comment Spec In Lab Gretchen Yoon MD CHEMISTRY ORDERABLES Performing Organization Address City/State/[place] [address] (ABNORMAL) Hemogram (12/05/2019 4:18 AM EDT) Analysis Performed At Patho logist Time Signature WBC 8.6 4.0 - 9.5 [facility] x10(3)/[facility] LABORATORY RBC 4.28 (L) 4.58 - MELINA DOV 5.54 [facility] x10(6)/[facility] LABORATORY Hemoglobin 12.4 (L) 13.7 - [facility] 16.5 gm/dL [facility] Hematocrit 37.3 (L) 40.5 - [facility] 48.5 % [facility] MCV 87.1 82.9 - [facility] 93.1 [facility] LABORATORY MCH 29.0 27.5 - [facility] 32.1 pg [facility] MCHC 33.2 32.0 - [facility] 35.7 gm/dL [facility] Platelets 163 145 - 357 [facility] x10(3)/[facility] LABORATORY RDWSD 46.4 (H) 36.0 - [facility] 45.0 [facility] LABORATORY RDWCV 14.4 (H) 11.4 - [facility] 13.8 % [facility] MPV 11.7 7.6 - 12.9 [facility] LABORATORY nRBC % Auto 0.0 % [facility] nRBC Abs Auto 0.000 0.000 - [facility] 0.000 [facility] x10(3)/[facility] LABORATORY Specimen Anatomical Collection Method Collection Time Receive d Time (Source) Location / / Volume Laterality Blood specimen 12/05/2019 4:18 AM 020 4:31 (specimen) EDT AM EDT Resulting Agency Comment Spec In Lab Gretchen Yoon MD HEMATOLOGY ORDERABLES Performing Organization Address City/State/[place] [address] Cardiac for Morphology [...] For questions regarding this report, please contact [facility] number below. ? Electronically signed by: Roselyn Luciano, [facility] ([phone]), at 12/04/2019 6:16 PM Narrative 12/04/2019 6:16 [...] from neck/greatest puja meter to back wall: MONTSERRATIAN 91, CAU 13: ??19 mm CORTES ??1, [...] from neck/greatest puja meter to back wall: MONTSERRATIAN 91, CAU 13: 19 mm CORTES 1, [...] WBC 8.9 4.0 - 9.5 MEL[facility] DOV x10(3)/[facility] LABORATORY RBC 4.69 4.58 - MELINA DOV 5.54 [facility] x10(6)/[facility] LABORATORY Hemoglobin 13.5 (L) 13.7 - M[place] DOV 16.5 gm/dL [facility] Hematocrit 41.7 40.5 - M[place] DOV 48.5 % [facility] MCV 88.9 82.9 - [place] DOV 93.1 fL [facility] MCH 28.8 27.5 - M[place] DOV 32.1 pg [facility] MCHC 32.4 32.0 - [place] DOV 35.7 gm/dL [facility] Platelets 196 145 - 357 [place] DOV x10(3)/[facility] LABORATORY RDWSD 46.7 (H) 36.0 - MELINA MONAE 45.0 [facility] LABORATORY RDWCV 14.5 (H) 11.4 - MELINA MONAE 13.8 % [facility] MPV 12.1 7.6 - 12.9 MELINA MONAE [facility] LABORATORY nRBC % Auto 0.0 % [facility] nRBC Abs Auto 0.000 0.000 - MELINA MONAE 0.000 [facility] x10(3)/[facility] LABORATORY Specimen Anatomical Collection Method Collection Time Receive d Time (Source) Location / / Volume Laterality Blood specimen 12/04/2019 12:55 0 1:06 (specimen) PM EDT PM EDT Resulting Agency Comment Spec In Lab Gretchen Yoon MD HEMATOLOGY ORDERABLES Performing Organization Address City/[facility]/[place] [address] EKG 12 Lead (12/04/2019 10:43 AM EDT) Component Value Ref Range Test Analysis Performed Pathologis t Method Time At Signature Ventricular rate 158 BPM MUSE SYSTEM Atrial Rate 102 BPM MUSE SYSTEM QRS Duration 92 ms MUSE SYSTEM Q-T Interval 294 ms MUSE SYSTEM QTC Calculated 476 ms MUSE SYSTEM (Bezet) Calculated R Marceline 17 degrees MUSE SYSTEM Calculated T Marceline 90 degrees MUSE SYSTEM INTERPRETATION Atrial fibrillation with rapid ventricular response MUSE SYSTEM Possible Inferior infarct (cited on or before 29-NOV-2019) Abnormal ECG When compared with ECG of 30-NOV-2019 21:07, Atrial fibrillation has replaced Sinus rhythm Vent. rate has increased BY ??65 BPM Confirmed by MD Brenna, Faustino ([id number]) on 12/05/2019 8:59:44 AM Specimen Anatomical Collection Method Collection Time Receive d Time (Source) Location / / Volume Laterality 12/04/2019 10:43 12/05/2019 8:59 AM EDT AM EDT Gretchen Yoon MD ECG ORDERABLES Performing Organization Address City/State/ZIP Code Phon e Number MUSE SYSTEM (ABNORMAL) Magnesium (12/04/2019 4:28 AM EDT) P athologist Signature Magnesium 1.17 (H) 0.69 - 1.07 [facility] mmol/L [facility] Specimen Anatomical Collection Method Collection Time Receive d Time (Source) Location / / Volume Laterality Blood specimen 12/04/2019 4:28 AM 020 4:40 (specimen) EDT AM EDT Resulting Agency Comment Spec In Lab Gretchen Yoon MD CHEMISTRY ORDERABLES Performing Organization Address City/State/[place] [address] (ABNORMAL) BMP w/fasting Glucose (12/04/2019 4:28 AM EDT) athologist Signature Glucose 108 (H) 65 - 99 [facility] Fasting mg/dL [facility] Comment: ?Fasting* Glucose Interpretive C [...] of Diabetes Mellitus, Position Statement from the [place] [employer]. ??Diabete s Care, Volume 33, [...] estions. Chloride 104 98 - 107 mmol/L [facility] CO2 19 (L) 22 - 31 mmol/L [facility] Anion Gap 12 5 - 15 mmol/L [facility] Calcium 8.5 8.5 - 10.5 mg/dL [facility] Estimated GFR 85 >=60 mL/min/1.73 m?? [facility] Comment: The eGFR was calculated using the CKD-EP I equation. As with all creatinine based estimates of kidney function, eGFR values calculated with the CKD-EPI equation are not accurate in patients wi th acute kidney failure, extremes of body mass or the acutely ill. [email or web address] [place] eGFR 98 >=60 mL/min/1.73 m?? [facility] Comment: The eGFR was calculated using the CKD-EP I equation. As with all creatinine based estimates of kidney function, eGFR values calculated with the CKD-EPI equation are not accurate in patients wi th acute kidney failure, extremes of body mass or the acutely ill. [email or web address] [place] Specimen Anatomical Collection Method Collection Time Receive d Time (Source) Location / / Volume Laterality Blood specimen 12/04/2019 4:28 AM 020 4:40 (specimen) EDT AM EDT Resulting Agency Comment Spec In Lab Gretchen Yoon MD CHEMISTRY ORDERABLES Performing Organization Address City/State/[place] [address] (ABNORMAL) Hemogram (12/04/2019 4:28 AM EDT) Analysis Performed At Patho logist Time Signature WBC 7.8 4.0 - 9.5 [facility] x10(3)/[facility] LABORATORY RBC 4.10 (L) 4.58 - [facility] 5.54 [facility] x10(6)/[facility] LABORATORY Hemoglobin 12.0 (L) 13.7 - [facility] 16.5 gm/dL [facility] Hematocrit 36.5 (L) 40.5 - [facility] 48.5 % [facility] MCV 89.0 82.9 - [facility] 93.1 fL [facility] MCH 29.3 27.5 - MELINA MONAE 32.1 pg [facility] MCHC 32.9 32.0 - MELINA MONAE 35.7 gm/dL [facility] Platelets 151 145 - 357 MELINA VILLANUEVACK x10(3)/[facility] LABORATORY RDWSD 46.9 (H) 36.0 - MELINA MONAE 45.0 [facility] LABORATORY RDWCV 14.4 (H) 11.4 - MELINA MONAE 13.8 % [facility] MPV 12.2 7.6 - 12.9 MELINA MONAE fL [facility] nRBC % Auto 0.0 % [facility] nRBC Abs Auto 0.000 0.000 - MELINA MONAE 0.000 [facility] x10(3)/[facility] LABORATORY Specimen Anatomical Collection Method Collection Time Receive d Time (Source) Location / / Volume Laterality Blood specimen 12/04/2019 4:28 AM 020 4:40 (specimen) EDT AM EDT Resulting Agency Comment Spec In Lab Gretchen Yoon MD HEMATOLOGY ORDERABLES Performing Organization Address City/[facility]/ZIP Code Phon e Number [address] Potassium (12/03/2019 7:55 PM EDT) athologist Signature Potassium 3.9 3.5 - 5.0 [facility] mmol/L [facility] Comment: Please note: ??Patients with [...] Yoon MD CHEMISTRY ORDERABLES Performing Organization Address City/[facility]/ZIP [facility] Phon e Number [address] Potassium (12/03/2019 1:57 PM EDT) athologist Signature Potassium 3.7 3.5 - 5.0 [facility] mmol/L [facility] Comment: Please note: ??Patients with [...] Organization Address City/State/[place] [address] (ABNORMAL) Hemogram (12/03/2019 1:57 PM EDT) Analysis Performed At Patho logist Time Signature WBC 8.8 4.0 - 9.5 [facility] DOV x10(3)/[facility] LABORATORY RBC 4.27 (L) 4.58 - M[place] DOV 5.54 [facility] x10(6)/[facility] LABORATORY Hemoglobin 12.5 (L) 13.7 - M[place] DOV 16.5 gm/dL [facility] Hematocrit 37.5 (L) 40.5 - M[place] DOV 48.5 % [facility] MCV 87.8 82.9 - [place] DOV 93.1 [facility] LABORATORY MCH 29.3 27.5 - MELINA DOV 32.1 pg [facility] MCHC 33.3 32.0 - [place] DOV 35.7 gm/dL [facility] Platelets 158 145 - 357 M[place] DOV x10(3)/[facility] LABORATORY RDWSD 46.9 (H) 36.0 - M[place] DOV 45.0 [facility] LABORATORY RDWCV 14.5 (H) 11.4 - M[place] DOV 13.8 % [facility] MPV 12.2 7.6 - 12.9 MELINA DOV [facility] LABORATORY nRBC % Auto 0.0 % [facility] nRBC Abs Auto 0.000 0.000 - [facility] 0.000 [facility] x10(3[facility] LABORATORY Specimen Anatomical Collection Method Collection Time Receive d Time (Source) Location / / Volume Laterality Blood specimen 12/03/2019 1:57 PM 020 2:21 (specimen) EDT PM EDT Resulting Agency Comment Spec In Lab Gretchen Yoon MD HEMATOLOGY ORDERABLES Performing Organization Address City/State/ZIP Code Phon e Number [address] Magnesium (12/03/2019 4:02 AM EDT) P athologist Signature Magnesium 0.79 0.69 - 1.07 [facility] mmol/L [facility] Specimen Anatomical Collection Method Collection Time Receive d Time (Source) Location / / Volume Laterality Blood specimen 12/03/2019 4:02 AM 020 4:16 (specimen) EDT AM EDT Resulting Agency Comment Spec In Lab Gretchen Yoon MD CHEMISTRY ORDERABLES Performing Organization Address City/State/[place] [address] (ABNORMAL) BMP w/fasting Glucose (12/03/2019 4:02 AM EDT) P athologist Signature Glucose 100 (H) 65 - 99 [facility] Fasting mg/dL [facility] Comment: ?Fasting* Glucose Interpretive C [...] of Diabetes Mellitus, Position Statement from the [place] [employer]. ??Diabete s Care, Volume 33, [...] estions. Chloride 103 98 - 107 mmol/L [facility] CO2 18 (L) 22 - 31 mmol/L [facility] Anion Gap 15 5 - 15 mmol/L [facility] Calcium 8.3 (L) 8.5 - 10.5 mg/dL [facility] Estimated GFR 79 >=60 mL/min/1.73 m?? [facility] Comment: The eGFR was calculated using the CKD-EP I equation. As with all creatinine based estimates of kidney function, eGFR values calculated with the CKD-EPI equation are not accurate in patients wi th acute kidney failure, extremes of body mass or the acutely ill. [email or web address]/[facility] [place] eGFR 92 >=60 mL/min/1.73 m?? [facility] Comment: The eGFR was calculated using the CKD-EP I equation. As with all creatinine based estimates of kidney function, eGFR values calculated with the CKD-EPI equation are not accurate in patients wi th acute kidney failure, extremes of body mass or the acutely ill. [email or web address] Specimen Anatomical Collection Method Collection Time Receive d Time (Source) Location / / Volume Laterality Blood specimen 12/03/2019 4:02 AM 020 4:16 (specimen) EDT AM EDT Resulting Agency Comment Spec In Lab Gretchen Yoon MD CHEMISTRY ORDERABLES Performing Organization Address City/State/[place] [address] (ABNORMAL) Hemogram (12/03/2019 4:02 AM EDT) Analysis Performed At Patho logist Time Signature WBC 9.1 4.0 - 9.5 [facility] x10(3)/[facility] LABORATORY RBC 4.01 (L) 4.58 - MELINA MARSHDOV 5.54 [facility] x10(6)/[facility] LABORATORY Hemoglobin 11.8 (L) 13.7 - [facility] 16.5 gm/dL [facility] Hematocrit 35.6 (L) 40.5 - [facility] 48.5 % [facility] MCV 88.8 82.9 - [facility] 93.1 [facility] LABORATORY MCH 29.4 27.5 - [facility] 32.1 pg [facility] MCHC 33.1 32.0 - [facility] 35.7 gm/dL [facility] Platelets 130 (L) 145 - 357 [facility] x10(3)/[facility] LABORATORY RDWSD 46.6 (H) 36.0 - [facility] 45.0 [facility] LABORATORY RDWCV 14.4 (H) 11.4 - [facility] 13.8 % [facility] MPV 12.4 7.6 - 12.9 [facility] LABORATORY nRBC % Auto 0.0 % [facility] nRBC Abs Auto 0.000 0.000 - [facility] 0.000 [facility] x10(3)/[facility] LABORATORY Specimen Anatomical Collection Method Collection Time Receive d Time (Source) Location / / Volume Laterality Blood specimen 12/03/2019 4:02 AM 020 4:16 (specimen) EDT AM EDT Resulting Agency Comment Spec In Lab Gretchen Yoon MD HEMATOLOGY ORDERABLES Performing Organization Address City/State/[place] [address] XR Chest One View [...] Signature WBC 10.6 (H) 4.0 - 9.5 [facility] x[facility](3[facility] LABORATORY RBC 4.00 (L) 4.58 - [facility] DOV 5.54 [facility] x10(6)/[facility] LABORATORY Hemoglobin 11.9 (L) 13.7 - [facility] 16.5 gm/dL [facility] Hematocrit 35.7 (L) 40.5 - [facility] 48.5 % [facility] MCV 89.3 82.9 - [facility] 93.1 [facility] LABORATORY MCH 29.8 27.5 - [facility] 32.1 pg [facility] MCHC 33.3 32.0 - [facility] 35.7 gm/dL [facility] Platelets 120 (L) 145 - 357 [facility] x10(3)/[facility] LABORATORY RDWSD 47.5 (H) 36.0 - [facility] 45.0 [facility] LABORATORY RDWCV 14.6 (H) 11.4 - [facility] 13.8 % [facility] MPV 12.0 7.6 - 12.9 [facility] LABORATORY nRBC % Auto 0.0 % [facility] nRBC Abs Auto 0.000 0.000 - [facility] 0.000 [facility] x10(3)/[facility] LABORATORY Specimen Anatomical Collection Method Collection Time Receive d Time (Source) Location / / Volume Laterality Blood specimen 12/02/2019 12:50 0 1:22 (specimen) PM EDT PM EDT Resulting Agency Comment Spec In Lab Gretchen Yoon MD HEMATOLOGY ORDERABLES Performing Organization Address City/State/[place] [address] Blue Tube HOLD (12/02/2019 4:55 AM EDT) P athologist Signature Blue Hold Sample in [facility] lab. [facility] Specimen Anatomical Collection Method Collection Time Receive d Time (Source) Location / / Volume Laterality Blood specimen Venous Draw / 12/02/2019 4:55 AM 2019 5:03 (specimen) Unknown EDT AM EDT Darrell Glasgow MD HEMATOLOGY ORDERABLES Performing Organization Address City/State/ZIP Code Phon e Number [address] Magnesium (12/02/2019 4:55 AM EDT) athologist Signature Magnesium 0.85 0.69 - 1.07 [facility] mmol/L [facility] Specimen Anatomical Collection Method Collection Time Receive d Time (Source) Location / / Volume Laterality Blood specimen 12/02/2019 4:55 AM 020 5:02 (specimen) EDT AM EDT Resulting Agency Comment Spec In Lab Gretchen Yoon MD CHEMISTRY ORDERABLES Performing Organization Address City/State/[place] [address] (ABNORMAL) BMP w/fasting Glucose (12/02/2019 4:55 AM EDT) athologist Signature Glucose 114 (H) 65 - 99 [facility] Fasting mg/dL [facility] Comment: ?Fasting* Glucose Interpretive C [...] of Diabetes Mellitus, Position Statement from the [place] [employer]. ??Diabete s Care, Volume 33, [...] estions. Chloride 105 98 - 107 mmol/L [facility] CO2 18 (L) 22 - 31 mmol/L [facility] Anion Gap 12 5 - 15 mmol/L [facility] Calcium 8.1 (L) 8.5 - 10.5 mg/dL [facility] Estimated GFR 81 >=60 mL/min/1.73 m?? [facility] Comment: The eGFR was calculated using the CKD-EP I equation. As with all creatinine based estimates of kidney function, eGFR values calculated with the CKD-EPI equation are not accurate in patients wi th acute kidney failure, extremes of body mass or the acutely ill. [email or web address]/[facility] [place] eGFR 94 >=60 mL/min/1.73 m?? [facility] Comment: The eGFR was calculated using the CKD-EP I equation. As with all creatinine based estimates of kidney function, eGFR values calculated with the CKD-EPI equation are not accurate in patients wi th acute kidney failure, extremes of body mass or the acutely ill. [email or web address] Specimen Anatomical Collection Method Collection Time Receive d Time (Source) Location / / Volume Laterality Blood specimen 12/02/2019 4:55 AM 020 5:02 (specimen) EDT AM EDT Resulting Agency Comment Spec In Lab Gretchen Yoon MD CHEMISTRY ORDERABLES Performing Organization Address City/State/[place] [address] (ABNORMAL) Hemogram (12/02/2019 4:55 AM EDT) Analysis Performed At Patho logist Time Signature WBC 9.3 4.0 - 9.5 [facility] x[facility](3[facility] LABORATORY RBC 3.71 (L) 4.58 - M[place] DOV 5.54 [facility] x10(6)/[facility] LABORATORY Hemoglobin 10.8 (L) 13.7 - [facility] 16.5 gm/dL [facility] Hematocrit 33.1 (L) 40.5 - [facility] 48.5 % [facility] MCV 89.2 82.9 - [facility] 93.1 [facility] LABORATORY MCH 29.1 27.5 - [facility] 32.1 pg [facility] MCHC 32.6 32.0 - [facility] 35.7 gm/dL [facility] Platelets 93 (L) 145 - 357 [facility] x10(3)/[facility] LABORATORY RDWSD 47.1 (H) 36.0 - [facility] 45.0 [facility] LABORATORY RDWCV 14.6 (H) 11.4 - [facility] 13.8 % [facility] MPV 11.7 7.6 - 12.9 [facility] LABORATORY nRBC % Auto 0.0 % [facility] nRBC Abs Auto 0.000 0.000 - [facility] 0.000 [facility] x10(3)/[facility] LABORATORY Specimen Anatomical Collection Method Collection Time Receive d Time (Source) Location / / Volume Laterality Blood specimen 12/02/2019 4:55 AM 020 5:02 (specimen) EDT AM EDT Resulting Agency Comment Spec In Lab Gretchen Yoon MD HEMATOLOGY ORDERABLES Performing Organization Address City/State/[place] [address] Transfuse 1 unit platelets, [...] For questions regarding this report, please contact [facility] number below. ? Electronically signed by: Angel Luis Barboza MD, [facility] ([phone]), at 12/01/2019 8:02 PM Narrative 12/01/2019 8:02 [...] For questions regarding this report, please contact [facility] number below. Electronically signed by: Angel Luis Barboza MD, [facility] ([phone]), at 12/01/2019 8:02 PM Gretchen Yoon MD IMG MRI ORDERABLES Prepare Platelets, Apheresis (12/01/2019 6:20 PM EDT) P athologist Signature Dispensed? Yes [facility] Specimen Anatomical Collection Method Collection Time Receive d Time (Source) Location / / Volume Laterality Blood specimen 12/01/2019 6:20 PM 020 6:18 (specimen) EDT PM EDT Gretchen Yoon MD BLOOD BANK ORDERABLES Performing Organization Address City/[facility]/[place] [address] Duplex for DVT, Arm, Unilat (12/01/2019 5:08 PM EDT) Component Value Ref Test Analysis Performed At Patholo gist Range Method Time Signature VB Text Department: Vascular Surgery Lab VASCUBASE Report Patient: [id number] (ANGEL LUIS SALINAS) CPT: 08835 ICD10: R60.0 Referring Physician: GRETCHEN YOON ?? [...] For questions regarding this report, please contact [facility] number below. ? Electronically signed by: Merari Collins, [facility] ([phone]), at 12/01/2019 3:53 PM Narrative 12/01/2019 3:53 PM EDT EXAMINATION: CT HEAD WO CONTRAST (GENERIC) CLINICAL HISTORY: Headache, intracranial hemorrhage suspected Serial CT scan: please assess for propag ation of known ICH noted on prior Head CT/imaging. TECHNIQUE: CT head performed without intravenous co ntrast administration. COMPARISON: Head CT 11/30/2019. CT angiogram of the [place] 11/01. FINDINGS: Ventricles are normal in size. Basal cis terns are patent. Unchanged hyperdense 2.3 x 0.7 x 0.6 cm tubular hemorrhage projecting along the course of the left optic tract (axial se [facility] 2 image 16), consistent [...] Head CT 11/30/2019. CT angiogram of the [place] 11/01. FINDINGS: Ventricles are normal [...] Peripheral Blood (12/01/2019 12:51 PM EDT) [facility] Method Time Signature Plat Estimate Decreased [facility] RBC Morphology Normal [facility] Giant Less than 1 /HPF [facility] Platelets [facility] Specimen Anatomical Collection Method Collection Time Receive d Time (Source) Location / / Volume Laterality Blood specimen 12/01/2019 12:51 0 1:05 (specimen) PM EDT PM EDT Resulting Agency Comment Spec In Lab Riki Stevens MD HEMATOLOGY ORDERABLES Performing Organization Address City/State/[place] [address] (ABNORMAL) Differential, Automated (12/01/2019 12:51 PM EDT) [facility] Method Time Signature Neutrophils % 74.9 % [facility] Neutr Abs (ANC) 6.34 (H) 1.70 - [facility] 6.10 [facility] x10(3)/[facility] LABORATORY Lymphocytes % 11.4 % [facility] Lymphocytes Abs 1.0 0.9 - 3.2 [facility] x10(3)/[facility] LABORATORY Monocytes % 12.4 % [facility] Monocyte Abs 1.0 (H) 0.3 - 0.9 [facility] x10(3)/[facility] LABORATORY Eosinophils % 0.4 % [facility] Eosinophils Abs 0.0 0.0 - 0.4 [facility] x10(3)/[facility] LABORATORY Basophils % 0.4 % [facility] Basophils Abs 0.0 0.0 - 0.1 [facility] x10(3)/[facility] LABORATORY Immature Gran % 0.50 % [facility] Comment: Immature granulocytes(IG's)percentage an d absolute count will include metamyelocytes, myelocytes, and promyelo cytes. Blood smears from CBCs yielding IG's will be scanned manually for ana nagy. If this scan disagrees with the automated IG or if promyelocytes are not ed, a manual differential will be performed. Pita Gran Abs 0.04 0.00 - 0.04 x10(3)/[facility] LABORATORY Specimen Anatomical Collection Method Collection Time Receive d Time (Source) Location / / Volume Laterality Blood specimen 12/01/2019 12:51 0 1:05 (specimen) PM EDT PM EDT Resulting Agency Comment Spec In Lab Riki Stevens MD HEMATOLOGY ORDERABLES Performing Organization Address City/State/ZIP Code Phon e Number [place] [id number] [address]OSP[address] (ABNORMAL) Hemogram (12/01/2019 12:51 PM EDT) Analysis Performed At Patho logist Time Signature WBC 8.4 4.0 - 9.5 [facility] LABORATORY RBC 3.69 (L) 4.58 - [facility] 5.54 [facility] x10(6)/[facility] LABORATORY Hemoglobin 10.8 (L) 13.7 - [facility] 16.5 gm/dL [facility] Hematocrit 32.4 (L) 40.5 - [facility] 48.5 % [facility] MCV 87.8 82.9 - [facility] 93.1 [facility] LABORATORY MCH 29.3 27.5 - MELINA DOV 32.1 pg [facility] LABORATORY MCHC 33.3 32.0 - [facility] DOV 35.7 gm/dL [facility] Platelets 72 (L) 145 - 357 [facility] x[facility](3[facility] LABORATORY RDWSD 47.2 (H) 36.0 - [facility] 45.0 [facility] LABORATORY RDWCV 14.6 (H) 11.4 - [facility] DOV 13.8 % [facility] LABORATORY MPV 12.2 7.6 - 12.9 [facility] LABORATORY nRBC % Auto 0.0 % [facility] nRBC Abs Auto 0.000 0.000 - [facility] 0.000 [facility] x10(3)/[facility] LABORATORY Specimen Anatomical Collection Method Collection Time Receive d Time (Source) Location / / Volume Laterality Blood specimen 12/01/2019 12:51 0 1:05 (specimen) PM EDT PM EDT Resulting Agency Comment Spec In Lab Riki Stevens MD HEMATOLOGY ORDERABLES Performing Organization Address City/State/ZIP Code Phon e Number [address] (ABNORMAL) Coox2 (12/01/2019 11:42 AM EDT) Analysis Performed At Patho logist Time Signature pO2 Coox 30 mmHg [facility] Hgb Blood Gas 11.6 (L) 13.7 - [facility] 16.5 gm/dL [facility] O2HB Coox 60.8 % [facility] COHB Coox 0.6 % [facility] Comment: Nonsmokers: 0.5-1.5% COHB Smokers: Variable, but usually less than 10% Toxic: 20-30% COHB Lethal: Greater than 60% COHB METHB Coox 0.6 <=1.5 % [facility] Source Coox Mixed Venous [facility] Specimen Anatomical Collection Method Collection Time Receive d Time (Source) Location / / Volume Laterality Blood specimen 12/01/2019 11:42 0 (specimen) AM EDT 11:42 AM EDT Gretchen Yoon MD CHEMISTRY ORDERABLES Performing Organization Address City/State/[place] [address] Sedimentation rate (12/01/2019 3:55 AM EDT) P athologist Signature Sed Rate 25 3 - 46 [facility] mm/hr [facility] Comment: Effective June 11, 2019 [...] Winn MD HEMATOLOGY ORDERABLES Performing Organization Address City/[facility]/[place] [address] (ABNORMAL) CRP, acute inflammation (12/01/2019 3:55 AM EDT) P athologist Signature CRP 92.5 (H) <=4.9 mg/L [facility] Specimen Anatomical Collection Method Collection Time Receive d Time (Source) Location / / Volume Laterality Blood specimen Venous Draw / 12/01/2019 3:55 AM 2019 4:06 (specimen) Unknown EDT AM EDT Resulting Agency Comment Spec In Lab Rossy Winn MD CHEMISTRY ORDERABLES Performing Organization Address City/[facility]/ZIP Code Phon e Number [address] ABORH Recheck Status (12/01/2019 3:55 AM EDT) [facility] Method Time Signature ABORH Recheck Order Placed [facility] LABORATORY ABORH Type Complete [facility] LABORATORY Specimen Anatomical Collection Method Collection Time Receive d Time (Source) Location / / Volume Laterality Blood specimen 12/01/2019 3:55 AM 020 4:15 (specimen) EDT AM EDT Resulting Agency Comment Spec In Lab Lewis Gee MD BLOOD BANK ORDERABLES Performing Organization Address City/[facility]/[place] [address] Antibody screen (12/01/2019 3:55 AM EDT) Patholo gist Method Time Signature Ab Screen Negative [facility] LABORATORY Expires at 12/04/2019 [facility] [id number] on: [facility] LABOR[facility]ORY Specimen Anatomical Collection Method Collection Time Receive d Time (Source) Location / / Volume Laterality Blood specimen 12/01/2019 3:55 AM 020 4:15 (specimen) EDT AM EDT Resulting Agency Comment Spec In Lab Lewis Gee MD BLOOD BANK ORDERABLES Performing Organization Address City/State/[place] [address] ABO/Rh Typing (12/01/2019 3:55 AM EDT) athologist Signature ABORh Type AB Pos [facility] Specimen Anatomical Collection Method Collection Time Receive d Time (Source) Location / / Volume Laterality Blood specimen 12/01/2019 3:55 AM 020 4:15 (specimen) EDT AM EDT Resulting Agency Comment Spec In Lab Lewis Gee MD BLOOD BANK ORDERABLES Performing Organization Address City/[facility] [place] [address] (ABNORMAL) Troponin (12/01/2019 3:55 AM EDT) athologist Signature Troponin-T 4.35 (H) 0.00 - [facility] 0.00 ng/mL [facility] Comment: result rechecked-slw The 99th percentile for Troponin T is le ss than 0.01 ng/mL, any detectable cTnT concentration using this assay should be considered elevated. According to the third universal definit ion of myocardial infarction the following criteria with a clinical prese ntation consistent with acute myocardial ischemia meets the diagnosis for a myocardial infarction ([place]). Detection of a rise and/or fall of [...] additional sample may be indicated. Reference: Third Fontana Definition of Myocardial Infarction. Journal of the [place] [employer] 2012;60:1581-98 Specimen Anatomical Collection Method Collection Time Receive d Time (Source) Location / / Volume Laterality Blood specimen 12/01/2019 3:55 AM 020 4:00 (specimen) EDT AM EDT Resulting Agency Comment Spec In Lab Gretchen Yoon MD CHEMISTRY ORDERABLES Performing Organization Address City/State/ZIP Code Phon e Number [address] Magnesium (12/01/2019 3:55 AM EDT) P athologist Signature Magnesium 0.96 0.69 - 1.07 [facility] mmol/L [facility] LABORATORY Specimen Anatomical Collection Method Collection Time Receive d Time (Source) Location / / Volume Laterality Blood specimen 12/01/2019 3:55 AM 020 4:00 (specimen) EDT AM EDT Resulting Agency Comment Spec In Lab Gretchen Yoon MD CHEMISTRY ORDERABLES Performing Organization Address City/[facility]/[place] [address] (ABNORMAL) BMP w/fasting Glucose (12/01/2019 3:55 AM EDT) P athologist Signature Glucose 148 (H) 65 - 99 [facility] Fasting mg/dL [facility] Comment: ?Fasting* Glucose Interpretive C [...] of Diabetes Mellitus, Position Statement from the [place] [employer]. ??Diabete s Care, Volume 33, [...] estions. Chloride 105 98 - 107 mmol/L [facility] CO2 17 (L) 22 - 31 mmol/L [facility] Anion Gap 10 5 - 15 mmol/L [facility] LABORATORY Calcium 7.6 (L) 8.5 - 10.5 mg/dL [facility] LABORATORY Estimated GFR 78 >=60 mL/min/1.73 m?? [facility] Comment: The eGFR was calculated using the CKD-EP I equation. As with all creatinine based estimates of kidney function, eGFR values calculated with the CKD-EPI equation are not accurate in patients wi th acute kidney failure, extremes of body mass or the acutely ill. [email or web address] – [place] CITYnkf eGFR 91 >=60 mL/min/1.73 m?? [facility] Comment: The eGFR was calculated using the CKD-EP I equation. As with all creatinine based estimates of kidney function, eGFR values calculated with the CKD-EPI equation are not accurate in patients wi th acute kidney failure, extremes of body mass or the acutely ill. [email or web address] Specimen Anatomical Collection Method Collection Time Receive d Time (Source) Location / / Volume Laterality Blood specimen 12/01/2019 3:55 AM 020 4:00 (specimen) EDT AM EDT Resulting Agency Comment Spec In Lab Gretchen Yoon MD CHEMISTRY ORDERABLES Performing Organization Address City/State/[place] [address] (ABNORMAL) Hemogram (12/01/2019 3:55 AM EDT) Analysis Performed At [facility]o [facility] Time Signature WBC 11.0 (H) 4.0 - 9.5 [facility] x10(3)/[facility] LABORATORY RBC 3.46 (L) 4.58 - [facility] 5.54 [facility] x10(6)/[facility] LABORATORY Hemoglobin 10.2 (L) 13.7 - [facility] 16.5 gm/dL [facility] Hematocrit 31.2 (L) 40.5 - [facility] 48.5 % [facility] MCV 90.2 82.9 - [facility] 93.1 [facility] LABORATORY MCH 29.5 27.5 - [facility] 32.1 pg [facility] MCHC 32.7 32.0 - [facility] 35.7 gm/dL [facility] Platelets 98 (L) 145 - 357 [facility] x10(3)/[facility] LABORATORY RDWSD 47.9 (H) 36.0 - [facility] 45.0 [facility] LABORATORY RDWCV 14.6 (H) 11.4 - [facility] 13.8 % [facility] LABORATORY MPV 12.3 7.6 - 12.9 [facility] LABORATORY nRBC % Auto 0.0 % [facility] nRBC Abs Auto 0.000 0.000 - [facility] 0.000 [facility] x10(3)/[facility] LABORATORY Specimen Anatomical Collection Method Collection Time Receive d Time (Source) Location / / Volume Laterality Blood specimen 12/01/2019 3:55 AM 020 4:00 (specimen) EDT AM EDT Resulting Agency Comment Spec In Lab Gretchen Yoon MD HEMATOLOGY ORDERABLES Performing Organization Address City/State/[place] [address] (ABNORMAL) BLOOD GAS 2 ARTERIAL (11/30/2019 10:39 PM EDT) Analysis Performed At [facility] Time Signature pH Art 7.45 7.35 - [facility] 7.45 [facility]ORY pCO2 Art 23 (L) 35 - 45 [facility] LABORATORY pO2 Art 76 (L) 85 - 104 [facility] LABORATORY HCO3 Art 15.3 (L) 20.0 - [facility] 26.0 [facility] mmol/[facility] LABORATORY BE Art -8.7 (L) -3.0 - 3.0 [facility] mmol/L [facility] LABORATORY Hgb Blood Gas 11.7 (L) 13.7 - [facility] 16.5 gm/dL [facility] O2HB Art 94.2 94.0 - [facility] 97.0 % [facility] LABOR[facility]ORY COHB Art 0.5 % [facility] Comment: Nonsmokers: 0.5-1.5% COHB Smokers: Variable, but usually less than 10% Toxic: 20-30% COHB Lethal: Greater than 60% COHB METHB Art 0.6 <=1.5 % [facility] LABORATORY Na Whole Blood 133 (L) 135 - 145 mmol/L [facility] LABORATORY K Whole Blood 3.8 3.5 - 5.0 mmol/L [facility] LABORATORY Comment: Please note: Patients with WBC >100,000 may have falsely elevated Potassium levels. Contact the Clinical Chemistry L aboratory if there are any questions. ICa Whole Blood 1.10 (L) 1.15 - 1.33 mmol/L [facility] Comment: Note: ??Total bilirubin higher than 20 m g/dL may lead to falsely low ionized calcium. CL Whole Blood 109 (H) 98 - 107 mmol/L [facility] LABORATORY Gluc Whole Bld 120 65 - 199 mg/dL [facility] Comment: Diabetes: >=200 mg/dL plus symp toms. Lactate WB 0.8 0.5 - 2.2 mmol/L [facility] FIO2 Art 100 % [facility] PF Ratio Art [address] [facility] LABORATORY Specimen Anatomical Collection Method Collection Time Receive d Time (Source) Location / / Volume Laterality Blood specimen 11/30/2019 10:39 0 (specimen) PM EDT 10:39 PM EDT Gretchen Yoon MD CHEMISTRY ORDERABLES Performing Organization Address City/State/[place] [address] EKG 12 Lead (11/30/2019 [...] (Bezet) Calculated P 12 degrees MUSE SYSTEM [facility]eline Calculated R 19 degrees MUSE SYSTEM [facility]eline Calculated T -47 degrees MUSE SYSTEM [facility] INTERPRETATION Sinus rhythm with Premature supraventricular complexes [...] Yoon MD ECG ORDERABLES Performing Organization Address City/[facility]/ZIP Code Phon e Number MUSE SYSTEM (ABNORMAL) Urinalysis Microscopic Exam (11/30/2019 8:40 PM EDT) P athologist Signature RBC UA 27 (H) 0 - 3 /HPF [facility] WBC UA 4 (H) 0 - 3 /HPF [facility] Hyaline Cast 3 (H) 0 - 2 /LPF [facility] LABORATORY Specimen (Source) Anatomical Collection Method Collection Time Re ceived Time Location / / Volume Laterality Urine specimen 11/30/2019 8:40 11/30/2019 obtained via PM EDT 10:51 PM EDT indwelling urinary catheter (specimen) Resulting Agency Comment Spec In Lab Rossy Winn MD URINE ORDERABLES Performing Organization Address City/[facility]/ZIP Code Phon e Number [place] [id number] (ABNORMAL) Urinalysis with reflex Culture (11/30/2019 8:40 PM EDT) Patholo gist Method Time Signature Glucose UA Negative Negative [facility] mg/dL [facility] Protein UA Negative Negative [facility] mg/dL [facility] Bilirubin UA Negative Negative [facility] mg/dL [facility] Comment: Clinical correlation required for positi ve Urine Bilirubin results as false positive may occur with some drugs and d rug related products. If a false positive is suspected a serum total bili morales should be considered if clinically indicated. Urobilinogen UA Normal Normal mg/dL [facility] pH UA 5.5 5.0 - 8.0 [facility] Blood UA Moderate (A) Negative mg/dL [facility] Ketones UA 40 (A) Negative mg/dL [facility] Nitrite UA Negative Negative [facility] Leukocytes UA Trace (A) Negative [facility] LABORATORY Appearance UA Clear Clear [facility] LABORATORY Spec Clark UA 1.026 1.006 - 1.030 [facility] Color UA Yellow Yellow [facility] LABORATORY Culture Reflexed No [facility] LABORATORY Specimen (Source) Anatomical Collection Method Collection Time Re ceived Time Location / / Volume Laterality Urine specimen 11/30/2019 8:40 11/30/2019 obtained via PM EDT 10:51 PM EDT indwelling urinary catheter (specimen) Resulting Agency Comment Spec In Lab Gretchen Yoon MD URINE ORDERABLES Performing Organization Address City/State/[place] [address] (ABNORMAL) pro-Brain Natriuretic Peptide (11/30/2019 8:30 PM EDT) P athologist Signature ProBNP 2,802 (H) <=125 [facility] pg/mL [facility] Specimen Anatomical Collection Method Collection Time Receive d Time (Source) Location / / Volume Laterality Blood specimen Venous Draw / 11/30/2019 8:30 PM 2019 8:36 (specimen) Unknown EDT PM EDT Resulting Agency Comment Spec In Lab Rossy Winn MD CHEMISTRY ORDERABLES Performing Organization Address City/State/ZIP Code Phon e Number [place] [id number] [address] (ABNORMAL) Troponin (11/30/2019 8:30 PM EDT) athologist Signature Troponin-T 5.04 (H) 0.00 - MELINA MONAE 0.00 ng/mL [facility] Comment: The 99th percentile for Troponin T is le ss than 0.01 ng/mL, any detectable cTnT concentration using this assay should be considered elevated. According to the third universal definit ion of myocardial infarction the following criteria with a clinical prese ntation consistent with acute myocardial ischemia meets the diagnosis for a myocardial infarction ([place]). Detection of a rise and/or fall of [...] additional sample may be indicated. Reference: Third Fontana Definition of Myocardial Infarction. Journal of the [place] College [employer] 2012;60:1581-98 Specimen Anatomical Collection Method Collection Time Receive d Time (Source) Location / / Volume Laterality Blood specimen Venous Draw / 11/30/2019 8:30 PM 2019 8:36 (specimen) Unknown EDT PM EDT Resulting Agency Comment Spec In Lab Rossy Winn MD CHEMISTRY ORDERABLES Performing Organization Address City/State/[place] [address] Magnesium (11/30/2019 8:30 PM EDT) athologist Signature Magnesium 0.79 0.69 - 1.07 [facility] mmol/L [facility] Specimen Anatomical Collection Method Collection Time Receive d Time (Source) Location / / Volume Laterality Blood specimen 11/30/2019 8:30 PM 020 8:35 (specimen) EDT PM EDT Resulting Agency Comment Spec In Lab Gretchen Yoon MD CHEMISTRY ORDERABLES Performing Organization Address City/State/[place] [address] (ABNORMAL) Basic Metabolic Panel (non-fasting) (11/30/2019 8:30 PM EDT) athologist Signature Glucose Lvl 132 65 - 199 [facility] mg/dL [facility] Comment: Diabetes: >=200 mg/dL plus [...] Chloride 108 (H) 98 - 107 mmol/L [facility] CO2 17 (L) 22 - 31 mmol/L [facility] Anion Gap 11 5 - 15 mmol/L [facility]ATORY Calcium 7.9 (L) 8.5 - 10.5 mg/dL [facility] LABORATORY Estimated GFR 80 >=60 mL/min/1.73 m?? [facility] Comment: The eGFR was calculated using the CKD-EP I equation. As with all creatinine based estimates of kidney function, eGFR values calculated with the CKD-EPI equation are not accurate in patients wi th acute kidney failure, extremes of body mass or the acutely ill. [email or web address] eGFR 93 >=60 mL/min/1.73 m?? [facility] Comment: The eGFR was calculated using the CKD-EP I equation. As with all creatinine based estimates of kidney function, eGFR values calculated with the CKD-EPI equation are not accurate in patients wi th acute kidney failure, extremes of body mass or the acutely ill. [email or web address] Specimen Anatomical Collection Method Collection Time Receive d Time (Source) Location / / Volume Laterality Blood specimen 11/30/2019 8:30 PM 020 8:35 (specimen) EDT PM EDT Resulting Agency Comment Spec In Lab Gretchen Yoon MD CHEMISTRY ORDERABLES Performing Organization Address [facility] Phon e Number [address] Blood culture (11/30/2019 8:30 PM EDT) Patholo gist Method Time Signature Blood Culture No growth MELINA MONAE at 5 days. [facility] Specimen Anatomical Collection Method Collection Time Receive d Time (Source) Location / / Volume Laterality Blood specimen 11/30/2019 8:30 PM 020 9:40 (specimen) EDT PM EDT Comment: L HAND Resulting Agency Comment Spec In Lab Gretchen Yoon MD MICROBIOLOGY - BLOOD ORDERAB LES Performing Organization Address City/[facility] [place] [address] Blood culture (11/30/2019 8:30 PM EDT) Patholo gist Method Time Signature Blood Culture No growth MELINA MONAE at 5 days. [facility] LABORATORY Specimen Anatomical Collection Method Collection Time Receive d Time (Source) Location / / Volume Laterality Blood specimen 11/30/2019 8:30 PM 020 9:40 (specimen) EDT PM EDT Comment: R HAND Resulting Agency Comment Spec In Lab Gretchen Yoon MD MICROBIOLOGY - BLOOD ORDERAB LES Performing Organization Address [facility] Phon e Number [address] XR Chest One View [...] Time Signature pH Art 7.45 7.35 - [facility] 7.45 [facility] LABOR[facility] pCO2 Art 27 (L) 35 - 45 [facility] mmHg [facility] LABOR[facility] pO2 Art 68 (L) 85 - 104 [facility] LABORATORY HCO3 Art 18.2 (L) 20.0 - [facility] 26.0 [facility] mmol/[facility] LABORATORY BE Art -5.9 (L) -3.0 - 3.0 [facility] mmol/L [facility] LABORATORY Hgb Blood Gas 12.4 (L) 13.7 - [facility] 16.5 gm/dL [facility] O2HB Art 93.1 (L) 94.0 - [facility] 97.0 % [facility] COHB Art 0.8 % [facility] LAB[facility] Comment: Nonsmokers: 0.5-1.5% COHB Smokers: Variable, but usually less than 10% Toxic: 20-30% COHB Lethal: Greater than 60% COHB METHB Art 0.4 <=1.5 % [facility] LABORATORY Na Whole Blood 133 (L) 135 - 145 mmol/L [facility] LABORATORY K Whole Blood 3.6 3.5 - 5.0 mmol/L [facility] LABORATORY Comment: Please note: Patients with WBC >100,000 may have falsely elevated Potassium levels. Contact the Clinical Chemistry L aboratory if there are any questions. ICa Whole Blood 1.13 (L) 1.15 - 1.33 mmol/L [facility] LABORAT[facility] Comment: Note: ??Total bilirubin higher than 20 m g/dL may lead to falsely low ionized calcium. CL Whole Blood 108 (H) 98 - 107 mmol/L [facility] LABORATORY Gluc Whole Bld 121 65 - 199 mg/dL [facility] Comment: Diabetes: >=200 mg/dL plus symp toms. Lactate WB 1.2 0.5 - 2.2 mmol/L [facility] LABORATORY Flow Art 5.0 LPM [facility] LABORATORY Specimen Anatomical Collection Method Collection Time Receive d Time (Source) Location / / Volume Laterality Blood specimen 11/30/2019 8:09 PM 020 8:09 (specimen) EDT PM EDT Gretchen Yoon MD CHEMISTRY ORDERABLES Performing Organization Address City/State/ZIP Code Phon e Number [place] [id number] CT Angiogram [place] (11/30/2019 4:36 PM EDT) Anatomical [...] CT HEAD WO CONTRAST (GENERIC), CT ANGIOGRAM [place] CLINICAL HISTORY: Headache, intracranial hemorrhage suspected F/U on known ICH - assessing for propaga tion TECHNIQUE: CT head performed without intravenous co ntrast administration. CT angiogram [place] 65 cc Omnipaque 350 administered [...] HEAD WO CONTRAST (GENERI C), CT ANGIOGRAM [place] CLINICAL HISTORY: Headache, intracranial hemorrhage suspected F/U on known ICH - assessing for propaga tion TECHNIQUE: CT head performed without intravenous co ntrast administration. CT angiogram [place] 65 cc Omnipaque 350 administered [...] CT HEAD WO CONTRAST (GENERIC), CT ANGIOGRAM [place] CLINICAL HISTORY: Headache, intracranial hemorrhage suspected F/U on known ICH - assessing for propaga tion TECHNIQUE: CT head performed without intravenous co ntrast administration. CT angiogram [place] 65 cc Omnipaque 350 administered [...] HEAD WO CONTRAST (GENERI C), CT ANGIOGRAM [place] CLINICAL HISTORY: Headache, intracranial hemorrhage suspected F/U on known ICH - assessing for propaga tion TECHNIQUE: CT head performed without intravenous co ntrast administration. CT angiogram [place] 65 cc Omnipaque 350 administered [...] by: Angel Luis Barboza MD, [facility] ([phone]), at 11/30/2019 5:04 PM Gretchen Yoon MD [...] 453 ms MUSE SYSTEM (Bezet) Calculated P Marceline 52 degrees MUSE SYSTEM Calculated R Marceline 5 degrees MUSE SYSTEM Calculated T Marceline -60 degrees MUSE SYSTEM INTERPRETATION Sinus rhythm [...] [place]an ? (Age): 1945(74y) Med Rec#: ? [id number] ?Sex: ?M ? Site Loc: ? [facility] [place] ?Ht / Wt: ??178(cm)/64(kg) Pt. Loc: ?CCU ? BSA: ?1.8 Study Date: ?? 11/30/2019 ?Pt. Type: Inpatient Tape: ? Referring: GILMER Reading: Tello Mejia ([id number]) Butter Maker: Friend, Lolita Diagnosis: *ST elevation (STEMI) myocardial [...] Vmax ?0.58 ? m/sec ? MV deceleration azvi688.05 ? m sec ? MV A-wave Vmax [...] ? Mid-Inferior ?Akinetic ? Mid-Inferoseptal ?Normal ? Preston-Septal ? Normal ? Preston-Anterior ? Normal ? Preston-Lateral ?Normal ? Preston-Inferior ? Hypokinetic ? Preston-Tip ?Normal ? This report has been electronically sign ed by: _ Tello Mejia MD ? 11/30/2019 12: 45:27 [facility] Procedure Note Tello Mejia MD - 11/30/2019Formatti ng of this note might be different from the original. Procedure: Transthoracic Echocardiogram Patient: RITA ACOSTA(Age): [birth year](74y) Med Rec#: [id number] Sex: M Site Loc: [facility] [place] Ht / Wt: 178(cm)/64(kg) Pt. Loc: [facility] BSA: 1.8 Study Date: 11/30/2019 Pt. Type: Inpatie nt Tape: Referring: DONAYMICMUNIRAJ Reading: Tello Mejia ([id number]) Butter Maker: Lolita Prado Diagnosis: *ST elevation (STEMI) myocardial [...] MV E-wave Vmax 0.58 m/sec MV deceleration eofc036.05 msec MV A-wave Vmax 0.74 m/sec MV [...] Hypokinetic Mid-Posterolateral Hypokinetic Mid-Inferior Akinetic Mid-Inferoseptal Normal Preston-Septal Normal Preston-Anterior Normal Preston-Lateral Normal Preston-Inferior Hypokinetic Preston-Tip Normal This report has been electronically sign ed by: _ Tello Mejia MD 11/30/2019 12:45:27 Images reviewed and interpretation rafaela devin [facility] Cardiac Ultrasound Laboratory Gretchen Yoon MD ECHO [...] by: Angel Luis Barboza MD, [facility] ([phone]), at 11/30/2019 12:04 PM Narrative 11/30/2019 12:04 [...] ORDERABLES Magnesium (11/30/2019 8:30 AM EDT) athologist [facility] Magnesium 0.88 0.69 - 1.07 [facility] mmol/L [facility] LABORATORY Specimen Anatomical Collection Method Collection Time Receive d Time (Source) Location / / Volume Laterality Blood specimen Venous Draw / 11/30/2019 8:30 AM 2019 8:37 (specimen) Unknown EDT AM EDT Resulting Agency Comment Spec In Lab Rossy Winn MD CHEMISTRY ORDERABLES Performing Organization Address City/[facility]/[place] [address] (ABNORMAL) CK (11/30/2019 8:30 AM EDT) athologist [facility] CK, Total 1,645 (H) 0 - 200 [facility] Specimen Anatomical Collection Method Collection Time Receive d Time (Source) Location / / Volume Laterality Blood specimen 11/30/2019 8:30 AM 020 8:32 (specimen) EDT AM EDT Resulting Agency Comment Spec In Lab Gretchen Yoon MD CHEMISTRY ORDERABLES Performing Organization Address City/[facility] [place] [address] (ABNORMAL) Troponin (11/30/2019 8:30 AM EDT) athologist [facility] Troponin-T 8.04 (H) 0.00 - MELINA DOV 0.00 ng/mL [facility] Comment: result rechecked-rancho The 99th percentile for Troponin T is le ss than 0.01 ng/mL, any detectable cTnT concentration using this assay should be considered elevated. According to the third universal definit ion of myocardial infarction the following criteria with a clinical prese ntation consistent with acute myocardial ischemia meets the diagnosis for a myocardial infarction ([place]). Detection of a rise and/or fall of [...] additional sample may be indicated. Reference: Third Fontana Definition of Myocardial Infarction. Journal of the [place] College [employer] 2012;60:1581-98 Specimen Anatomical Collection Method Collection Time Receive d Time (Source) Location / / Volume Laterality Blood specimen 11/30/2019 8:30 AM 020 8:32 (specimen) EDT AM EDT Resulting Agency Comment Spec In Lab Gretchen Yoon MD CHEMISTRY ORDERABLES Performing Organization Address City/State/ZIP Code Phon e Number [place] [phone] EKG 12 Lead (11/30/2019 7:57 AM EDT) Component Value Ref Range Test Analysis Performed Pathologis t Method Time At Signature Ventricular rate 64 BPM MUSE SYSTEM Atrial Rate 64 BPM MUSE SYSTEM P-R Interval 132 ms MUSE SYSTEM QRS Duration 78 ms MUSE SYSTEM Q-T Interval 420 ms MUSE SYSTEM QTC Calculated 433 ms MUSE SYSTEM (Bezet) Calculated P Marceline 28 degrees MUSE SYSTEM Calculated R Marceline 7 degrees MUSE SYSTEM Calculated T Marceline -33 degrees MUSE SYSTEM INTERPRETATION Sinus rhythm [...] Signature Glucose 147 (H) 65 - 99 [facility] Fasting mg/dL [facility] Comment: ?Fasting* Glucose Interpretive C [...] of Diabetes Mellitus, Position Statement from the [place] [employer]. ??Diabete s Care, Volume 33, [...] Chloride 108 (H) 98 - 107 mmol/L [facility] CO2 16 (L) 22 - 31 mmol/L [facility] Anion Gap 11 5 - 15 mmol/L [facility] LABORATORY Calcium 7.5 (L) 8.5 - 10.5 mg/dL [facility] LABORATORY Estimated GFR 84 >=60 mL/min/1.73 m?? [facility] Comment: The eGFR was calculated using the CKD-EP I equation. As with all creatinine based estimates of kidney function, eGFR values calculated with the CKD-EPI equation are not accurate in patients wi th acute kidney failure, extremes of body mass or the acutely ill. [email or web address]/[facility] [place]nkf eGFR 98 >=60 mL/min/1.73 m?? [facility] LAB[facility] Comment: The eGFR was calculated using the CKD-EP I equation. As with all creatinine based estimates of kidney function, eGFR values calculated with the CKD-EPI equation are not accurate in patients wi th acute kidney failure, extremes of body mass or the acutely ill. [email or web address]/[facility] [place] Specimen Anatomical Collection Method Collection Time Receive d Time (Source) Location / / Volume Laterality Blood specimen 11/30/2019 2:15 AM 020 2:29 (specimen) EDT AM EDT Resulting Agency Comment Spec In Lab Gretchen Yoon MD CHEMISTRY ORDERABLES Performing Organization Address City/State/ZIP Code Phon e Number [place] [id number] (ABNORMAL) Hemogram (11/30/2019 2:15 AM EDT) Analysis Performed At Patho logist Time Signature WBC 11.2 (H) 4.0 - 9.5 [facility] x10(3)/[facility] LABORATORY RBC 3.83 (L) 4.58 - [facility] 5.54 [facility] x10(6)/[facility] LABORATORY Hemoglobin 11.4 (L) 13.7 - [facility] 16.5 gm/dL [facility]ORAT[facility] Hematocrit 35.2 (L) 40.5 - [facility] 48.5 % [facility] MCV 91.9 82.9 - [facility] 93.1 fL [facility] MCH 29.8 27.5 - [facility] 32.1 pg [facility]AT[facility] MCHC 32.4 32.0 - MELINA MONAE 35.7 gm/dL [facility] Platelets 122 (L) 145 - 357 MELINA MARSHDOV x10(3)/[facility] LABORATORY RDWSD 49.8 (H) 36.0 - MELINA MONAE 45.0 [facility] LABORATORY RDWCV 14.8 (H) 11.4 - M[place] 13.8 % [facility] LABORATORY MPV 12.1 7.6 - 12.9 MELINA MONAE [facility] LABORATORY nRBC % Auto 0.0 % [facility] LABORATORY nRBC Abs Auto 0.000 0.000 - MELINA MARSHDOV 0.000 [facility] x10(3)/[facility] LABORATORY Specimen Anatomical Collection Method Collection Time Receive d Time (Source) Location / / Volume Laterality Blood specimen 11/30/2019 2:15 AM 020 2:29 (specimen) EDT AM EDT Resulting Agency Comment Spec In Lab Gretchen Yoon MD HEMATOLOGY ORDERABLES Performing Organization Address City/State/[place] [address] (ABNORMAL) CK (11/30/2019 2:15 AM EDT) athologist [facility] CK, Total 1,969 (H) 0 - 200 [facility] DOV unit/L [facility] LABORATORY Specimen Anatomical Collection Method Collection Time Receive d Time (Source) Location / / Volume Laterality Blood specimen 11/30/2019 2:15 AM 020 2:29 (specimen) EDT AM EDT Resulting Agency Comment Spec In Lab Gretchen Yoon MD CHEMISTRY ORDERABLES Performing Organization Address City/State/[place] [address] (ABNORMAL) Troponin (11/30/2019 2:15 AM EDT) athologist [facility] Troponin-T 11.73 (H) 0.00 - MELINA MONAE 0.00 ng/mL [facility] Comment: result rechecked-slw The 99th percentile for Troponin T is le ss than 0.01 ng/mL, any detectable cTnT concentration using this assay should be considered elevated. According to the third universal definit ion of myocardial infarction the following criteria with a clinical prese ntation consistent with acute myocardial ischemia meets the diagnosis for a myocardial infarction ([place]). Detection of a rise and/or fall of [...] additional sample may be indicated. Reference: Third Fontana Definition of Myocardial Infarction. Journal of the [place] College of [employer]iology 2012;60:1581-98 result rechecked- The 99th percentile for Troponin T is le ss than 0.01 ng/mL, any detectable cTnT concentration using this assay should be considered elevated. According to the third universal definit ion of myocardial infarction the following criteria with a clinical prese ntation consistent with acute myocardial ischemia meets the diagnosis for a myocardial infarction ([place]). Detection of a rise and/or fall of [...] additional sample may be indicated. Reference: Third Fontana Definition of Myocardial Infarction. Journal of the [place] College of [employer]iology 2012;60:1581-98 Corrected from 11.73 ng/ml [HI] on 11/29 3:11:51 EDT by Debi Hawley Specimen Anatomical Collection Method Collection Time Receive d Time (Source) Location / / Volume Laterality Blood specimen 11/30/2019 2:15 AM 020 2:29 (specimen) EDT AM EDT Resulting Agency Comment Spec In Lab Gretchen Yoon MD CHEMISTRY ORDERABLES Performing Organization Address City/[facility]/ZIP Code Phon e Number [address] LDL Cholesterol, Direct (11/30/2019 2:15 AM EDT) P athologist Signature LDL Chol 156 mg/dL [facility] LABORATORY Comment: Lowest Risk: <100 mg/dL Lower Risk: 100-129 mg/dL Borderline High Risk: 130-159 mg/dL High Risk: 160-189 mg/dL Very High Risk: >kt=044 mg/dL Specimen Anatomical Collection Method Collection Time Receive d Time (Source) Location / / Volume Laterality Blood specimen 11/30/2019 2:15 AM 020 2:29 (specimen) EDT AM EDT Resulting Agency Comment Spec In Lab Gretchen Yoon MD CHEMISTRY ORDERABLES Performing Organization Address City/[facility]/ZIP Code Phon e Number [address] (ABNORMAL) Hemoglobin A1c (11/30/2019 [...] Mellitus, Diabetes Care 2013; 36: Suppl. 1, W52-65 Est Avg Gluc See note mg/dL [facility] LABORATORY Comment: Estimated Average Glucose not [...] with hemoglobinopathies. Additional resources are available on [facility] ADA website. Kiko CARBAJAL, Jenn J, Silas R, et al. ??Tr anslating the A1C assay into estimated average glucose values. ??Diabetes Care 2008:31(8):2297-4145. Specimen Anatomical Collection Method Collection Time Receive d Time (Source) Location / / Volume Laterality Blood specimen 11/30/2019 2:15 AM 020 2:29 (specimen) EDT AM EDT Resulting Agency Comment Spec In Lab Gretchen Yoon MD CHEMISTRY ORDERABLES Performing Organization Address City/State/[place] [address] Lipid Panel (Reflex Direct LDL) (11/30/2019 2:15 AM EDT) athologist Signature Chol, Total 195 mg/dL [facility] LABOR[facility] Comment: Lower Risk: <200 mg/dL Average Risk: 200-239 mg/dL Higher Risk: >oe=260 mg/dL Triglycerides 93 mg/dL [facility] LABORATORY Comment: Average Risk/Lower Risk: <150 mg/dL Borderline High Risk: 150-199 mg/dL High Risk: 200-499 mg/dL Very High Risk: >ir=778 mg/dL HDL 32 mg/dL [facility] LABORATORY Comment: Males: ?? Higher Risk: <40 mg/dL Females: ?? HIgher Risk: <50 mg/dL LDL Cholesterol 144 mg/dL [facility] Comment: Lowest Risk: <100 mg/dL Lower Risk: 100-129 mg/dL Borderline High Risk: 130-159 mg/dL High Risk: 160-189 mg/dL Very High Risk: >co=082 mg/dL Chol/HDL Ratio 6.1 ratio [facility] LABOR[facility] Lipid Interpretation See Note [facility] LABORATORY Comment: Lipid management should be guided by a p atient? s ASCVD risk, goals and preferences. ACC/AHA Guidelines recommend high intens ity statin if clinical ASCVD or LDL greater than or equal to 190 mg/dL. [email or web address]-VBB-Fzvfozszl Adults aged 40-75 with LDL 70-189 mg/dL should have their 10 year ASCVD risk estimated with the ACC/AHA ASCVD risk es timator http://tools.acc.org/QJRHB-Wcwi-Iqjbqhlz r/ Statin should be discussed if risk [...] Organization Address City/State/[place] [address] (ABNORMAL) CK (11/29/2019 6:35 PM EDT) athologist Signature CK, Total 2,780 (H) 0 - 200 [facility] unit/L [facility] LABORATORY Specimen Anatomical Collection Method Collection Time Receive d Time (Source) Location / / Volume Laterality Blood specimen 11/29/2019 6:35 PM 020 6:53 (specimen) EDT PM EDT Resulting Agency Comment Spec In Lab Gretchen Yoon MD CHEMISTRY ORDERABLES Performing Organization Address City/State/[place] [address] (ABNORMAL) Troponin (11/29/2019 6:35 PM EDT) athologist Signature Troponin-T 17.60 (H) 0.00 - [facility] 0.00 ng/mL [facility] Comment: result rechecked-az The 99th percentile for Troponin T is le ss than 0.01 ng/mL, any detectable cTnT concentration using this assay should be considered elevated. According to the third universal definit ion of myocardial infarction the following criteria with a clinical prese ntation consistent with acute myocardial ischemia meets the diagnosis for a myocardial infarction ([place]). Detection of a rise and/or fall of [...] additional sample may be indicated. Reference: Third Fontana Definition of Myocardial Infarction. Journal of the [place] College of Cardiology 2012;60:1581-98 Specimen Anatomical Collection Method Collection Time Receive d Time (Source) Location / / Volume Laterality Blood specimen 11/29/2019 6:35 PM 020 6:53 (specimen) EDT PM EDT Resulting Agency Comment Spec In Lab Gretchen Yoon MD CHEMISTRY ORDERABLES Performing Organization Address City/State/ZIP Code Phon e Number [place] [id number] EKG 12 Lead (11/29/2019 3:58 PM EDT) [facility] gist Method Time Signature Ventricular rate 73 BPM MUSE SYSTEM Atrial Rate 73 BPM MUSE SYSTEM P-R Interval 152 ms MUSE SYSTEM QRS Duration 84 ms MUSE SYSTEM Q-T Interval 404 ms MUSE SYSTEM QTC Calculated 445 ms MUSE SYSTEM (Bezet) Calculated P Marceline 50 degrees MUSE SYSTEM Calculated R Marceline -4 degrees MUSE SYSTEM Calculated T Marceline 19 degrees MUSE SYSTEM INTERPRETATION Sinus rhythm [...] CLINICAL HISTORY: stemi (as entered by o [facility] provider in the order requisition) TECHNIQUE: [...] lung apex is excluded from the imaged [id number]. IMPRESSION: 1. ??New right internal jugular pulmonar [...] lung apex is excluded from the imaged [id number]. Procedure Note Estefani Harris MD - 11/29/2019Formattin [...] lung apex is excluded from the imaged [id number]. IMPRESSION 1. New right internal jugular pulmonary [...] Differential, Automated (11/29/2019 2:32 PM EDT) [facility] Method Time Signature Neutrophils % 83.8 % [facility] LABORATORY Neutr Abs (ANC) 12.12 (H) 1.70 - [facility] 6.10 [facility] x10(3)/[facility] LABORATORY Lymphocytes % 9.1 % [facility] LABORATORY Lymphocytes Abs 1.3 0.9 - 3.2 [facility] x10(3)/[facility] LABORATORY Monocytes % 6.2 % [facility] LABORATORY Monocyte Abs 0.9 0.3 - 0.9 [facility] x10(3)/[facility] LABORATORY Eosinophils % 0.0 % [facility] LABORATORY Eosinophils Abs 0.0 0.0 - 0.4 [facility] x10(3)/[facility] LABORATORY Basophils % 0.3 % [facility] LABORATORY Basophils Abs 0.0 0.0 - 0.1 [facility] x10(3)/[facility] LABORATORY Immature Gran % 0.60 % [facility] LABORAT[facility] Comment: Immature granulocytes(IG's)percentage an d absolute count will include metamyelocytes, myelocytes, and promyelo cytes. Blood smears from CBCs yielding IG's will be scanned manually for concor dance. If this scan disagrees with the automated IG or if promyelocytes are not ed, a manual differential will be performed. Pita Gran Abs 0.08 (H) 0.00 - 0.04 x10(3)/[facility] LABORATORY Specimen Anatomical Collection Method Collection Time Receive d Time (Source) Location / / Volume Laterality Blood specimen 11/29/2019 2:32 PM 020 2:55 (specimen) EDT PM EDT Resulting Agency Comment Spec In Lab Darrell Glasgow MD HEMATOLOGY ORDERABLES Performing Organization Address City/State/[place] [address] (ABNORMAL) Hemogram (11/29/2019 2:32 PM EDT) Analysis Performed At Patho logist Time Signature WBC 14.5 (H) 4.0 - 9.5 [facility] x10(3)/[facility] LABORATORY RBC 4.53 (L) 4.58 - [facility] 5.54 [facility] x10(6)/[facility] LABORATORY Hemoglobin 13.1 (L) 13.7 - [facility] 16.5 gm/dL [facility] LABORATORY Hematocrit 40.8 40.5 - [facility] 48.5 % [facility]ORATORY MCV 90.1 82.9 - [facility] 93[facility]1 [facility] LABORATORY MCH 28.9 27.5 - [facility] 32.1 pg [facility] LABORATORY MCHC 32.1 32.0 - [facility] 35.7 gm/dL [facility] LABORATORY Platelets 184 145 - 357 [facility] x10(3)/[facility] LABORATORY RDWSD 47.8 (H) 36.0 - [facility] DOV 45.0 [facility] LABORATORY RDWCV 14.5 (H) 11.4 - [facility] DOV 13.8 % [facility] LABORATORY MPV 11.9 7.6 - 12.9 [facility] nRBC % Auto 0.0 % [facility] LABORATORY nRBC Abs Auto 0.000 0.000 - [facility] DOV 0.000 [facility] x10(3)/[facility] LABORATORY Specimen Anatomical Collection Method Collection Time Receive d Time (Source) Location / / Volume Laterality Blood specimen 11/29/2019 2:32 PM 020 2:55 (specimen) EDT PM EDT Resulting Agency Comment Spec In Lab Darrell Glasgow MD HEMATOLOGY ORDERABLES Performing Organization Address City/State/ZIP Code Phon e Number [address] (ABNORMAL) CK (11/29/2019 2:32 PM EDT) athologist Signature CK, Total 3,282 (H) 0 - 200 [facility] unit/L [facility] LABORATORY Specimen Anatomical Collection Method Collection Time Receive d Time (Source) Location / / Volume Laterality Blood specimen 11/29/2019 2:32 PM 020 2:32 (specimen) EDT PM EDT Resulting Agency Comment Spec In Lab Gretchen Yoon MD CHEMISTRY ORDERABLES Performing Organization Address City/[facility]/[place] [address] (ABNORMAL) Troponin (11/29/2019 2:32 PM EDT) athologist Signature Troponin-T 20.33 (H) 0.00 - [facility] 0.00 ng/mL [facility] LABORATORY Comment: The 99th percentile for Troponin T is le ss than 0.01 ng/mL, any detectable cTnT concentration using this assay should be considered elevated. According to the third universal definit ion of myocardial infarction the following criteria with a clinical prese ntation consistent with acute myocardial ischemia meets the diagnosis for a myocardial infarction (WI). Detection of a rise and/or fall of [...] additional sample may be indicated. Reference: Third Fontana Definition of Myocardial Infarction. Journal of the [place] [employer] 2012;60:1581-98 Specimen Anatomical Collection Method Collection Time Receive d Time (Source) Location / / Volume Laterality Blood specimen 11/29/2019 2:32 PM 020 2:32 (specimen) EDT PM EDT Resulting Agency Comment Spec In Lab Gretchen Yoon MD CHEMISTRY ORDERABLES Performing Organization Address [facility] [place] [address] (ABNORMAL) APTT (11/29/2019 2:32 PM EDT) athologist Signature PTT 114 25 - 37 [facility] (Critical) [facility] LABORATORY Comment: Critical Result [...] HEMATOLOGY ORDERABLES Performing Organization Address [facility] [place] [address] (ABNORMAL) Prothrombin Time (11/29/2019 2:32 PM EDT) P athologist Signature PT 13.5 (H) 9.4 - 12.5 [facility] LABORATORY INR 1.2 [facility] LABORATORY Comment: An INR <2.0 indicates [...] Organization Address City/State/[place] [address] (ABNORMAL) Hepatic Function Panel (11/29/2019 2:32 PM EDT) athologist Signature Total Protein 6.3 6.1 - 8.0 [facility] Albumin 3.6 3.2 - 5.2 [facility] gm/dL [facility] AST 257 (H) 0 - 39 [facility]L [facility] ALT 50 0 - 55 [facility]L [facility] Alk Phos 84 40 - 130 [facility] unit/L [facility] LABOR[facility] Total 0.3 0.2 - 1.3 [facility] Bilirubin mg/dL [facility] LABOR[facility] Bili, Direct 0.1 0.0 - 0.3 [facility] DOV mg/dL [facility] LABORATORY Specimen Anatomical Collection Method Collection Time Receive d Time (Source) Location / / Volume Laterality Blood specimen 11/29/2019 2:32 PM 020 2:32 (specimen) EDT PM EDT Resulting Agency Comment Spec In Lab Gretchen Yoon MD CHEMISTRY ORDERABLES Performing Organization Address City/[facility]/[place] [address] (ABNORMAL) pro-Brain Natriuretic Peptide (11/29/2019 2:32 PM EDT) P athologist Signature ProBNP 272 (H) <=125 pg/mL [facility] LABORATORY Specimen Anatomical Collection Method Collection Time Receive d Time (Source) Location / / Volume Laterality Blood specimen 11/29/2019 2:32 PM 020 2:32 (specimen) EDT PM EDT Resulting Agency Comment Spec In Lab Gretchen Yoon MD CHEMISTRY ORDERABLES Performing Organization Address City/[facility]/[place] [address] Magnesium (11/29/2019 2:32 PM EDT) athologist Signature Magnesium 0.76 0.69 - 1.07 [facility] mmol/L [facility] LABORATORY Specimen Anatomical Collection Method Collection Time Receive d Time (Source) Location / / Volume Laterality Blood specimen 11/29/2019 2:32 PM 020 2:32 (specimen) EDT PM EDT Resulting Agency Comment Spec In Lab Gretchen Yoon MD CHEMISTRY ORDERABLES Performing Organization Address City/State/ZIP Code Phon e Number [address] (ABNORMAL) Basic Metabolic Panel (non-fasting) (11/29/2019 2:32 PM EDT) athologist Signature Glucose Lvl 149 65 - 199 [facility] mg/dL [facility] LABOR[facility] Comment: Diabetes: >=200 mg/dL plus [...] estions. Chloride 105 98 - 107 mmol/L [facility] LABORATORY CO2 15 (L) 22 - 31 mmol/L [facility] LABORATORY Anion Gap 15 5 - 15 mmol/L [facility] LABORATORY Calcium 8.0 (L) 8.5 - 10.5 mg/dL [facility] LABORATORY Estimated GFR 80 >=60 mL/min/1.73 m?? [facility] LABOR[facility] Comment: The eGFR was calculated using the CKD-EP I equation. As with all creatinine based estimates of kidney function, eGFR values calculated with the CKD-EPI equation are not accurate in patients wi th acute kidney failure, extremes of body mass or the acutely ill. [email or web address] eGFR 93 >=60 mL/min/1.73 m?? [facility] LABORATORY Comment: The eGFR was calculated using the CKD-EP I equation. As with all creatinine based estimates of kidney function, eGFR values calculated with the CKD-EPI equation are not accurate in patients wi th acute kidney failure, extremes of body mass or the acutely ill. [email or web address] [place] CITYnkf Specimen Anatomical Collection Method Collection Time Receive d Time (Source) Location / / Volume Laterality Blood specimen 11/29/2019 2:32 PM 020 2:32 (specimen) EDT PM EDT Resulting Agency Comment Spec In Lab Gretchen Yoon MD CHEMISTRY ORDERABLES Performing Organization Address City/[facility] [place] [address] EKG 12 Lead (11/29/2019 11:38 AM EDT) [facility] gist Method Time Signature Ventricular rate 60 BPM MUSE SYSTEM Atrial Rate 60 BPM MUSE SYSTEM P-R Interval 140 ms MUSE SYSTEM QRS Duration 86 ms MUSE SYSTEM Q-T Interval 474 ms MUSE SYSTEM QTC Calculated 474 ms MUSE SYSTEM (Bezet) Calculated P Marceline 48 degrees MUSE SYSTEM Calculated R Marceline 14 degrees MUSE SYSTEM Calculated T Marceline 58 degrees MUSE SYSTEM INTERPRETATION Normal sinus [...] Yoon MD ECG ORDERABLES Performing Organization Address City/[facility]/ZIP [facility] Phon e Number MUSE SYSTEM CARDIAC CATHETERIZATION (11/29/2019 11:15 AM EDT) Anatomical Region Laterality Modality Other Specimen (Source) Anatomical Location Collection Method / Collectio n Time Received Time / Laterality Volume Narrative 11/30/2019 1:09 PM EDT ?[facility] ? Cardiac Cathete rization/Intervention Report ? Patient Name: Salinas, Angel Luis H. ? Procedure Date: 11/29/2019 ? A #: [id number] ? Primary Physician: Young, Gretchen N ? Case #: [id number] ? File Name: [id number] ? Catheterization Order Number: [id number] ? [facility] ? Final Report [place], [place] ? Patient Name: ? Angel Luis Salinas ? ID#: ?[id number] ? : ?1945 ? Procedure Date: ? [...] procedure was Emergent. The indication for ?the geophysical laboratory director visit is ACS less than or [...] dose administered prior to arrival in the geophysical laboratory director. ?Recommended anti-platelet/anti- thrombotic regimen: ?Continue aspirin 81 mg daily fo r indefinitely. ?Continue clopidogrel 75 mg marco a y for 12 months then stop. ?These recommendations are made at the time of the intervention. Patient ?and provider preferences or a c hanging clinical situation may require ?modification of this regimen. C marvult [facility] [place] Interventional Cardiology for ?questions. [...] might be different from the original. [facility] Cardiac Catheterization/Intervention Re port Patient Name: Angel Luis Salinas Procedure Date: 11/29/2019 A #: [id number] Primary Physician: Gretchen Yoon Case #: [id number] File Name: [id number] Catheterization Order Number: [id number] [facility] Final Report [place], [place] Patient Name: Angel Luis Salinas ID#: [id number] : 1945 Procedure Date: November 29, [...] was designated as ASA Class IV. The [facility] clinical frailty scale is 4: Vulnerable. Diagnostic Tests: Electrocardiography: EKG was assessed by ECG. EKG was Abnorm al. EKG showed ST Deviation >= 0.5 mm. Medications Prior to Procedure: Aspirin. Indications for Diagnostic Cath: The priority of the diagnostic procedur e was Emergent. The indication for the geophysical laboratory director visit is ACS less than or [...] priority for the procedure was Emergent. The [facility] indication for the procedure was S [...] this intervention was 10%. The final TI WI flow was 2. Distal 90% Thrombectomy and [...] this intervention was 10%. The final TI WI flow was 2. Vascular Access: Vascular Access [...] administered prior t o arrival in the geophysical laboratory director. Recommended anti-platelet/anti-thrombot ic regimen: Continue aspirin 81 mg daily for indefi nitely. Continue clopidogrel 75 mg daily for 12 months then stop. These recommendations are made at the t loyda of the intervention. Patient and provider preferences or a changing clinical situation may require modification of this regimen. Consult D [facility] Interventional Cardiology for questions. Conclusions: * Two [...] Signature POC pH 7.33 (L) 7.35 - [facility] 7.45 [facility] LABORATORY POC PCO2 33 (L) 35 - 45 [facility] mmHg [facility] LABORATORY POC PO2 56 (L) 85 - 104 [facility] LABORATORY POC Base Excess -8.0 (L) -3.0 - 3.[address] [facility] K mmol/L [facility] LABORATORY POC HCO3 17.4 (L) 20.0 - [facility] 26.0 [facility] mmol/[facility] LABORATORY POC Sodium 137 135 - 145 [facility] mmol/L [facility] LABORATORY POC Potassium 3.6 3.5 - 5.0 [facility] mmol/L [facility] POC Ionized Ca 1.15 1.15 - [facility] 1.33 [facility] POC Hematocrit 37.0 (L) 40.0 - [facility] 51.0 % [facility] LABORATORY POC Calc Hgb 12.6 (L) 13.7 - [facility] 17.5 gm/dL [facility] LABORAT[facility] Comment: The calculation of hemoglobin f rom hematocrit assumes a normal MCHC. POC Bgas Loc CC LAB [facility] LABORATORY Specimen Anatomical Collection Method Collection Time Receive d Time (Source) Location / / Volume Laterality Blood specimen 11/29/2019 9:17 AM 020 7:35 (specimen) EDT AM EDT Gretchen Yoon MD CHEMISTRY ORDERABLES Performing Organization Address City/State/[place] [address] EKG 12 Lead (11/29/2019 9:01 AM EDT) Component Value Ref Range Test Analysis Performed Pathologis t Method Time At Signature Ventricular rate 80 BPM MUSE SYSTEM Atrial Rate 79 BPM MUSE SYSTEM QRS Duration 94 ms MUSE SYSTEM Q-T Interval 436 ms MUSE SYSTEM QTC Calculated 502 ms MUSE SYSTEM (Bezet) Calculated R Marceline 54 degrees MUSE SYSTEM Calculated T Marceline 80 degrees MUSE SYSTEM INTERPRETATION Normal sinus rhythm MUSE SYSTEM Inferior infarct , possibly acute Prolonged QT * ACUTE WI ?? Consider right ventricular involvement in acute [...] 150 mg, Intravenous, ONCE, 1 dose, On Mckinney 12/07/19 at 1315, Warning Vesicant/Irritant Medication , [...] mL/hr 250 mL/hr, Intravenous, CONTINUOUS, Starting on Mckinney 12/07/19 at 0145, Until Mckinney 12/07/19 at 0239 levoFLOXacin (LEVAQUIN) 750 mg in New Bag 11/30/2019 11:03 PM EDT 750 mg 100 mL/hr dextrose 5% 150 mL 750 mg, Intravenous, at 100 mL/hr, EVERY 24 HOURS, First dose on Mckinney 11/30/19 at 2300, Until Discontinued, Routine lisinopriL [...] ONCE, 1 dose, 12/06/19 at 0515, Ad coach operator over 120 Minutes magnesium sulfate 2 g [...] RN) 0506 (New Bag - Provider: Russell Vetnura, NIURKA)1228 (Stopped - Provider: Amaya Anderson RN) [...] Oral, EVERY 4 HOURS PRN, Startin g Mckinney 11/30/19 at 2016, Until Sun12/08/19 at 1811, hypokalemia
Administer for serum potassium (mMol/L) of 3.9 - 4 See instructions for Potassium Protocol in online policies.
Routine Or potassium chloride ER (K-Dur/Klor-Con) tablet 40 mEqJump to med 40 mEq, Oral, EVERY 4 HOURS PRN, Startin g Mckinney 11/30/19 at 2016, Until Sun12/08/19 at 1811, hypokalemia
Administer for serum potassium (mMol/L) of 3.6 - 3.8 See instructions for Potassium Protocol in online policies.
Routine documented in this encounter Care Teams Network Technical Analyst Relationship Specialty Start Date End Date France Lam MD PCP - General 05/02/13 02/04/20 [address] [place] [address] documented as of this encounter
--- OUTSIDE RECORDS SUMMARY | 2022-03-30 10:58 | XMS_ITS | Encounter Summary ---
:1945 Author Organization [facility] [place] [address] Care Team Providers Name Role Phone France Lam MD Primary Care Provider Encounter Details Date Type Department Care Team Description 11/30/2019 Orders Only Cardiology [facility] [place] [address] Social History Tobacco Use Types Packs/Day [...] fajardo ? (Age): 1945(74y) Med Rec#: ? [id number] ?Sex: ?M ? Site Loc: ? Ht / Wt: ??(cm)/ (kg) ? Pt. Loc: ? Study Date: ?? 11/29/2019 ?Pt. Type: Tape: ? Referring: Faustino Garduno Reading: Dawit Mejia ([id number]) [facility]: [facility] Padded Products Inspector Trimmer: Cedric Eric ([id number]) Interpreting Fellow: Cedric Eric ([id number]) Diagnosis: SUMMARY: 1. Limited bedside echocardiogram perfor med by loss control representative possum trapper for hypotension following inferior STEMI . 2. [...] ? Mid-Inferior ?Akinetic ? Mid-Inferoseptal ?Hypokinetic ? [place]-Septal ? Normal ? [place]-Anterior ? Normal ? [place]-Lateral ?Normal ? [place]-Inferior ? Hypokinetic ? [place]-Tip ?Normal ? This report has been electronically sign ed by: _ Dawit Mejia MD ? 11/30/2019 12: 53:59 Images reviewed and interpretation rafaela ielokesh [facility] Cardiac Ultrasound Laboratory Procedure Note Dawit Mejia MD - 11/30/2019Formatti ng of this note might be different from the original. Procedure: Transthoracic Echocardiogram Patient: domenica ACOSTA(Age): 6(74y) Med Rec#: [id number] Sex: M Site Loc: Ht / Wt: (cm)/ (kg) Pt. Loc: Study Date: 11/29/2019 Pt. Type: Tape: Referring: Faustino Garduno Reading: Dawit Mejia ([id number]) [facility]: [facility] Padded Products Inspector Trimmer: Cedric Eric ([id number]) Interpreting Fellow: Cedric Eric ([phone]) Diagnosis: SUMMARY: 1. Limited bedside echocardiogram perfor med by loss control representative possum trapper for hypotension following inferior STEMI . 2. [...] Normal Mid-Posterolateral Akinetic Mid-Inferior Akinetic Mid-Inferoseptal Hypokinetic [place]-Septal Normal [place]-Anterior Normal [place]-Lateral Normal [place]-Inferior Hypokinetic [place]-Tip Normal This report has been electronically sign ed by: _ Dawit Mejia MD 11/30/2019 12:53:59 Images reviewed and interpretation verif ied [facility] Cardiac Ultrasound Laboratory Unknown ECHO ORDERABLES documented in this encounter Visit Diagnoses Not on filedocumented in this encounter Care Teams Formation Fracturing Operator Relationship Specialty Start Date End Date France Lam MD PCP - General 05/02/13 02/04/20 [address] [place] [address] documented as of this encounter
--- OUTSIDE RECORDS SUMMARY | 2022-03-30 10:59 | XMS_ITS | Encounter Summary ---
:1945 Author Organization [facility] [place] [address] Care Team Providers Name Role Phone France Lam MD Primary Care Provider Encounter Details Date Type Department Care Team Description 05/13/2013 Ancillary Vascular Surgery at [facility] (Primary Appointment [facility] Cesilia Sebastian, ID Dx) [place] [id number] Social History Tobacco Use Types Packs/Day Years [...] Component Value Ref Test Analysis Performed At [facility] gist Range Method Time Signature VB Text VASCUBASE Report Department: Vascular Surgery Lab Patient: [id number] (ANGEL LUIS HI) CPT Code: 17925 ICD-9: 440.21 Referring Physician: FRANCE LAM Indication: [...] Posterior Tibial (Ankle) Art derrell ??84 ?0.64 ??[place]- Biphasic ?? Interpretation: RIGHT: ??Mild lower extremity [...] limb documented in this encounter Care Teams Head Of Physics Relationship Specialty Start Date End Date France Lam MD PCP - General 05/02/13 02/04/20 [address] [place] [address] documented as of this encounter
--- OUTSIDE RECORDS SUMMARY | 2022-03-30 10:59 | XMS_ITS | Encounter Summary ---
:1945 Author Organization [facility] Address [facility] [address] [place] [address] Care Team Providers Name Role Phone France Lam MD Primary Care Provider Reason for Visit Reason Comments Claudication Encounter Details Date Type Department Care Team Description 05/13/2013 Office Visit Vascular Surgery at David Sim from [facility] MD Bobby peripheral vascular [facility] dis ease, left (Primary Drive DR [place]) [place], [place] VASCULAR SURGERY [id number] [place] [address] [phone] Social History Tobacco Use Types Packs/Day Years [...] Sim MD - 05/13/2013 10:09 AM EST Jvoany Hi Is a 68-year-old nondiabetic man who [...] unspecified documented in this encounter Care Teams Gas Usage Meter Clerk Relationship Specialty Start Date End Date France Lam MD PCP - General 05/02/13 02/04/20 [address] [place] [address] documented as of this encounter
--- OUTSIDE RECORDS SUMMARY | 2022-03-30 10:59 | XMS_ITS | Encounter Summary ---
:1945 Author Organization [facility] [place] [address] Care Team Providers Name Role Phone France Lam MD Primary Care Provider Encounter Details Date Type Department Care Team Description 05/13/2013 Orders Only Vascular Surgery at [facility] (xi luis [facility] vascular surgeon disease) [facility] (Primary Dx) [place] [address] Social History Tobacco Use Types Packs/Day [...] unspecified documented in this encounter Care Teams Geography Faculty Member Relationship Specialty Start Date End Date France Lam MD PCP - General 05/02/13 02/04/20 [address] [place] [address] documented as of this encounter
--- OUTSIDE RECORDS SUMMARY | 2022-03-30 10:59 | XMS_ITS | Encounter Summary ---
:1945 [place] [address] Care Team Providers Name Role Phone France Lam MD Primary Care Provider Encounter Details Date Type Department Care Team Description 11/29/2019 Telephone Cardiovascular [facility] Silvio piedra MD [facility] Devin coh[place] [address] [place] [address] [phone] (Wo rk) Social History Tobacco Use Types [...] 50s EKG: Inferior STEMI Silvio Real MD Wire Repairer PGY-4 11/29/2019 documented in this encounter Plan of Treatment Not on filedocumented as of this encounter Visit Diagnoses Not on filedocumented in this encounter Care Teams Foiling Machine Adjuster Relationship Specialty Start Date End Date France Lam MD PCP - General 05/02/13 02/04/20 [address] [place] [address] documented as of this encounter
--- OUTSIDE RECORDS SUMMARY | 2022-03-30 10:59 | XMS_ITS | Encounter Summary ---
:1945 [place] [address] Care Team Providers Name Role Phone France Lam MD Primary Care Provider Reason for Visit Auth/Cert Specialty Diagnoses / Procedures Referred By Contact Refer red To Contact Diagnoses STEMI (ST elevation myocardial infarction) STEMI Procedures CARDIAC CATHETERIZATION Referral ID Status Reason Start Date Expiration Date Visits Requ ested Visits Authorized [id number] 1 1 Encounter Details Date Type Department Care Team Description 11/29/2019 Surgery Psychology Fellow Gretchen Corral, CARDIAC CATHETERIZATION [facility] [place] [address] [place] [id number] [phone] (Wo rk) Social History Tobacco Use Types [...] Luis Salinas Patient Age: 74 y.o. Language: [place] Race: White Ethnicity: Not nor Admit date: [...] months on: antiplatelet therapy at discretion of batch attendant - Repeat TTE in 3 months to reassess LV function - Repeat BMP in 1-2 weeks given recent start lisinopril - Referred to lipid clinic for consideration of PCSK-9 inhibitor given STEMI with intolerance of statins - Started on amiodarone this admission for recurrent rapid atrial flutter with rates ~170, recommendcontinued assessment of necessity of rhythm control strategy with batch attendant - Amiodarone monitoring recommendations as below - [...] please contact your inpatient physician through the [facility] Head Counselor . Issues after hours and on weekends [...] took two full strength aspirinand came to [facility] ED. At there was found [...] and Compazine. He was transferred directly to [facility] via [facility] for further management. Patient had an emergent PCI with 3 MACARIO stents placed to his RCA, with mild disease of LCX (report pending) at [facility]. He was found to be persistently hypotensive requiring Levo up to 10mcg/min. He was transferred to [facility] after the cath procedure. Bedside RHC showed CI 2.12, PAWP 11, PAP 38/15 indicating hypovolemic state. He received 1L bolus of NS with improvement of his blood pressure to 124/61. History of PAD, HLD - had side reactions to statins - so taking niacin and red rye grain. Chronic active smoker with more than 65 pack years. Family history of [place] in father and two uncles. He's takingbaby [...] ip as described above. On arrival at [facility] he was taken for cardiac cath where [...] the procedure was Emergent. [facility] procedure was STEMI [...] Electronically signed by: Estefani Harris [facility] ([phone]), at 11/29/2019 4:[address] Head wo Contrast (Generic) (Exam End: 11/30/2019 10:41 AM) Impression Focal hemorrhage with small amount of adjacent edema projecting in the region of the left optic tract. Thank you for letting us participate in the care of this patient. For questions regarding this report, please contact the number below. Electronically signed by: Angel Luis Barboza MD, [facility] ([phone]), at 11/30/2019 12:[address] Head wo [...] signed [facility]: [facility] ([phone]), at 11/30/2019 5:[address] Angiogram [place] (Exam End: 11/30/2019 4:36 PM) Impression Head CT: Stable hemorrhage in the region of the left optic tract. CTA: Negative exam. No abnormal vasculature in the area of hemorrhage. Thank you for letting us participate in the care of this patient. For questions regarding this report, please contact the number below. Electronically signed by: Angel Luis Barboza MD, [facility] ([phone]), at 11/30/2019 5:04 PM MRI Brain wo [...] by: Angel Luis Barboza MD, [facility] ([phone]), at 12/01/2019 8:02 PM XR Chest One [...] Electronically signed by: Merari Collins [facility] ([phone]), at 12/01/2019 3:53 PM XR Chest One [...] Electronically signed by: Roselyn Luciano [facility] ([phone]), at 12/04/2019 6:16 PM MRI Brain wwo Contrast (Generic) (Exam End: 12/05/2019 7:59 PM) Impression No significant interval change. Thank you for letting us participate in the care of this patient. For questions regarding this report, please contact the number below. Electronically signed by: Merari Collins [facility] ([phone]), at 12/05/2019 10:[address] Head wo [...] Electronically signed by: Merari Collins [facility] ([phone]), at 12/06/2019 10:06 PM Pending Studies and Lab Data: N/A Discharge Conditions/Prognosis: stable Discharge to: home Updated Allergies/ADRs: Allergies Allergen Reactions ??? Penicillins Pt doesn't remember reaction ??? Iuoqoqb-Yfy-Xgz Reductase Inhibitors Stiff neck, upset stomach, back [...] medications at another hospital and then at [facility] you had a stent placed in a [...] FOR ONE MONTH AND THEN STOP. Your batch attendant may tell you to start this medication again after one year. Clopidogrel (Plavix) 75 mg daily - This medication will help prevent clots from forming in your blood, which will help protect the stent that was placed in your heart vessel. TAKE THIS FOR ONE YEAR ANDTHEN DISCUSS WITH YOUR PHYSICAL THER WHETHER TO STOP. Amiodarone 400mg twice daily [...] follow up: Your primary care provider and batch attendant will manage your blood thinner (apixaban). You do not need lab monitoring of this medication. Diet: Please consume a healthy diet low in cholesterol Follow up Appointments: 12/10/2019 at 3:10PM with PCP Angel Luis Lott Future Appointments Date Time Provider Department Center 12/23/2019 1:30 PM Alfreda Salas APRN [facility] [id number] 12/26/2019 9:40 AM Merlin Sanchez MD [facility] CARD 4A [facility] 12/30/2019 3:40 PM Gretchen Yoon MD [address] Future Appointments and Orders Future Appointments and Orders Future Appointments Provider Department Dept Phone 12/23/2019 1:30 PM Alfreda Salas APRN Neurosurgery at [facility] Arrive at: Home [phone] Please do not come in for this visit. Your provider will call you at the number you provided. 12/26/2019 9:40 AM Merlin Sanchez MD Cardiology at [facility] Arrive at: Home [phone] Please do not come in for this visit. Your provider will call you at the number you provided. 12/30/2019 3:40 PM Gretchen Yoon MD Cardiology at [facility] Arrive at: Home [phone] Please do not come in for this visit. Your provider will call you at the number you provided. Future Orders Complete By Expires Referral to Cardiac Rehab [[id number] Custom] As directed Process Instructions: If no progress note charted, please enter Clinical details in comments. Scheduling Instructions: Questions: My question or request is: STEMI. Cardiac rehab at [facility] Referral to [facility] [REF43 Custom] As directed Process Instructions: If no progress note charted, please enter Clinical details in comments. Scheduling Instructions: Questions: My question or request is: patient with inferior stemi with history of statin allergy (rash) - please evaluate for psck9 inhibitor. Referral to Home Health - at DISCHARGE [GSM2499 CPT(R)] As directed Process Instructions: Scheduling Instructions: Comments: DOCUMENTATION FOR VNA SERVICES PATIENT'S LOCATION: Angel Luis Corcoran [address] [address] (home) Shoe Stitcher Odd's Name: Self In discussion with the attending physician, it is certified that this patient is under his/her care and that MD, or an KEYCASE ASSEMBLER, CORSET MAKER, or PA who is working directly with him/her, had a oews-ys-sjsc encounter that meets the physician bphy-gm-gcto encounter requirements with this patient on 12/07/2019. [...] managing ADLs. HOME HEALTH CARE AGENCY: [facility], PHONE: [phone] FAX: [phone] Start of care: 24-48 hours after hospital [...] MD [address] / [place] [address] All A agencies which cover the area of patient's residence have been reviewed, either verbally or in writing, and patient/family have chosen the home health care agency noted. Questions: Agency name and contact information: [facility] Patient location post discharge: Home What services are requested: Registered Nurse Physical Therapy Occupational Therapy Start date: Responsible MD post discharge contact info: PCP Your PCP: France Lam MD [phone] For questions regarding this document or issues relating to this hospitalization on the Cardiology Service, please contact your inpatient physician through the [facility] Head Counselor . Issues after hours and on weekends will be handled by the Stable Hand on-call. Patient Instructions: Neurology Your Diagnosis: Left [...] follow-up appointment in the neurology clinic at [facility]. See below for the appointment time. [...] 1:30 PM Alfreda Salas APRN Neurosurgery at [facility] Arrive at: Home [phone] Please do not come in for this visit. Your provider will call you at the number you provided. 12/26/2019 9:40 AM Merlin Sanchez MD Cardiology at [facility] Arrive at: Home [phone] Please do not come in for this visit. Your provider will call you at the number you provided. 12/30/2019 3:40 PM Gretchen Yoon MD Cardiology at [facility] Arrive at: Home [phone] Please do not come in for this visit. Your provider will call you at the number you provided. Future Orders Complete By Expires Referral to Cardiac Rehab [[id number] Custom] As directed Process Instructions: If no progress note charted, please enter Clinical details in comments. Scheduling Instructions: Questions: My question or request is: STEMI. Cardiac rehab at [facility] Referral to [facility] [REF43 Custom] As directed Process Instructions: If no progress note charted, please enter Clinical details in comments. Scheduling Instructions: Questions: My question or request is: patient with inferior stemi with history of statin allergy (rash) - please evaluate for psck9 inhibitor. Referral to Home Health - at DISCHARGE [XZN3516 CPT(R)] As directed Process Instructions: Scheduling Instructions: Comments: DOCUMENTATION FOR VNA SERVICES PATIENT'S LOCATION: [address] [address] (home) Shoe Stitcher Odd's Name: Self In discussion with the attending physician, it is certified that this patient is under his/her care and that MD, or an KEYCASE ASSEMBLER, CORSET MAKER, or PA who is working directly with him/her, had a oagf-rc-xedw encounter that meets the physician dnmd-kt-ehgo encounter requirements with this patient on 12/07/2019. [...] managing ADLs. HOME HEALTH CARE AGENCY: [facility], PHONE: [phone] FAX: [phone] Start of care: 24-48 hours after hospital [...] MD [address] / [place] [address] All A agencies which cover the area of patient's residence have been reviewed, either verbally or in writing, and patient/family have chosen the home health care agency noted. Questions: Agency name and contact information: [facility] Patient location post discharge: Home What services are requested: Registered Nurse Physical Therapy Occupational Therapy Start date: Responsible MD post discharge contact info: PCP Discharge References/Attachments Atrial Fibrillation ([place]) Cardiac Rehabilitation ([place]) Heart Failure ([place]) Heart Failure: Limiting Sodium ([place]) Hemorrhagic Stroke: General Info ([place]) Smoking: Stopping ([place]) Stroke Rehabilitation: General Info ([place]) Pulmonary Embolism ([place]) Riki Stevens MD PGY-3, Internal Medicine Cardiology S2, #[id number] Associated attestation - Paris Dodd MD - 12/09/2019 4:44 PM EDT Cardiology Attending Discharge Addendum I was the assigned attending batch attendant for this clinical encounter. For the purposes [...] complications include novel onset, paroxysmal atrial fibrillation [[id number]: 5] & L-sided diplopia with potential hemineglect [...] My contact information: Paris Matt MD MPH [address], [place] [address] (office); Pager #[phone] Email: documented in this encounter Discharge Instructions Patient InstructionsFiRiki de jesus MD - 12/02/2019 9:56 AM EDT Images from the original note were not included. Why you were hospitalized: You had a heart attack. You received clot-busting medications at another hospital and then at [facility] you had a stent placed in a [...] FOR ONE MONTH AND THEN STOP. Your batch attendant may tell you to start this medication again after one year. Clopidogrel (Plavix) 75 mg daily - This medication will help prevent clots from forming in your blood, which will help protect the stent that was placed in your heart vessel. TAKE THIS FOR ONE YEAR ANDTHEN DISCUSS WITH YOUR PHYSICAL THER WHETHER TO STOP. Amiodarone 400mg twice daily [...] follow up: Your primary care provider and batch attendant will manage your blood thinner (apixaban). You do not need lab monitoring of this medication. Diet: Please consume a healthy diet low in cholesterol Follow up Appointments: 12/10/2019 at 3:10PM with PCP Angel Luis Lott Future Appointments Date Time Provider Department Center 12/23/2019 1:30 PM Alfreda Salas APRN [facility] [id number] [facility] 12/26/2019 9:40 AM Merlin Sanchez MD [facility] CARD 4A [facility] 12/30/2019 3:40 PM Gretchen Yoon MD [facility] CARD 4A [facility] Future Appointments and Orders Future Appointments and Orders Future Appointments Provider Department Dept Phone 12/23/2019 1:30 PM Alfreda Salas APRN Neurosurgery at [facility] Arrive at: Home [phone] Please do not come in for this visit. Your provider will call you at the number you provided. 12/26/2019 9:40 AM Merlin Sanchez MD Cardiology at [facility] Arrive at: Home [phone] Please do not come in for this visit. Your provider will call you at the number you provided. 12/30/2019 3:40 PM Gretchen Yoon MD Cardiology at [facility] Arrive at: Home [phone] Please do not come in for this visit. Your provider will call you at the number you provided. Future Orders Complete By Expires Referral to Cardiac Rehab [[id number] Custom] As directed Process Instructions: If no progress note charted, please enter Clinical details in comments. Scheduling Instructions: Questions: My question or request is: STEMI. Cardiac rehab at [facility] Referral to [facility] [REF43 Custom] As directed Process Instructions: If no progress note charted, please enter Clinical details in comments. Scheduling Instructions: Questions: My question or request is: patient with inferior stemi with history of statin allergy (rash) - please evaluate for psck9 inhibitor. Referral to Home Health - at DISCHARGE [[id number] CPT(R)] As directed Process Instructions: Scheduling Instructions: Comments: DOCUMENTATION FOR VNA SERVICES PATIENT'S LOCATION: [address] [address] (home) Shoe Stitcher Odd's Name: Self In discussion with the attending physician, it is certified that this patient is under his/her care and that MD, or an KEYCASE ASSEMBLER, CORSET MAKER, or PA who is working directly with him/her, had a auae-sc-ulck encounter that meets the physician avwm-cq-pviy encounter requirements with this patient on 12/07/2019. [...] managing ADLs. HOME HEALTH CARE AGENCY: [facility], PHONE: [phone] FAX: [phone] Start of care: 24-48 hours after hospital [...] MD [address] / [place] [address] All A agencies which cover the area of patient's residence have been reviewed, either verbally or in writing, and patient/family have chosen the home health care agency noted. Questions: Agency name and contact information: [facility] Patient location post discharge: Home What services are requested: Registered Nurse Physical Therapy Occupational Therapy Start date: Responsible MD post discharge contact info: PCP Your PCP: France Lam MD [phone] For questions regarding this document or issues relating to this hospitalization on the Cardiology Service, please contact your inpatient physician through the [facility] Head Counselor . Issues after hours and on weekends will be handled by the St[facility] on-call. Patient Instructions: Neurology Your Diagnosis: Left [...] follow-up appointment in the neurology clinic at [facility]. See below for the appointment time. If you do not have an appointment, you will be called with a time/date for this appointment. ??? Primary Care Provider: Please follow up with your Primary Care Provider within one to 2 weeks ofdischarge. AttachmentsThe following attachments cannot be sent through Care Everywhere. Atrial Fibrillation ([place])Cardiac Rehabilitation ([place])Heart Failure ([place])Heart Failure: Limiting Sodium ([place])Hemorrhagic Stroke: General Info ([place])Smoking: Stopping ([place])Stroke Rehabilitation: General Info ([place])Pulmonary Embolism ([place])documented in this encounter Medications at Time of [...] consulted in the interim. Vikash Rodriguez Pager: [phone] Paris Dodd MD - 12/08/2019 8:57 AM [...] complications include novel onset, paroxysmal atrial fibrillation [[id number]: 5] & L-sided diplopia with potential hemineglect [...] consulted in the interim. Vikash Rodriguez Pager: [phone] Paris Dodd MD - 12/07/2019 9:55 AM [...] complications include novel onset, paroxysmal atrial fibrillation [BRI1NZ9GNSR: 5] & L-sided diplopia with potential hemineglect [...] complications include novel onset, paroxysmal atrial fibrillation [BMR2RL1LLHK: 5] & L-sided diplopia with potential hemineglect [...] complications include novel onset, paroxysmal atrial fibrillation [JWQ8RS1LPCK: 5] & L-sided diplopia with potential hemineglect [...] today; additional complications include paroxysmal atrial fibrillation [OKS9YS6YZAE: 4] c/b possible cardioembolic stroke, ICH from [...] length from neck/greatest diameter to back wall: LEBANESE 91, CAU 13: 19 mm CORTES 1, [...] a non-culprit artery. S/P DESx3 in the qtqqffjn-sm-oqonpb RCA. Aspiration thrombectomy performed, and integrellin bolus [...] complications include novel onset, paroxysmal atrial fibrillation [BLD5PY3ZFTO: 5] & L-sided diplopia with potential hemineglect [...] R occipital cardioembolic stroke #Paroxysmal Afib with SW4XYTAG6K score of 5 #New segmental bilateral PEs [...] Glasgow MD PGY1, Internal Medicine Cardiology S2, #0613 Associated attestation - Paris Dodd MD - 12/05/2019 2:59 PM EDT I was the assigned attending batch attendant for this clinical encounter. For the purposes [...] 12/04/2019 10:36 AM EDT Office of Care Management(OCM)/Tents Assembler(CM)/Discharge Planning Service: Cardiology S2 team CM Bernie Alexander,RN,BSN,MA,ACM pgr [phone] Reviewed record and in Cardiology Rounds with MD team,CMs, tool grinder operator external, BOAT OUTBOARD ENGINE MECHANIC. Pt is anticipated ready for d/c later [...] AD to his PCP and to any [facility] appt for each to have on file. [...] complications include novel onset, paroxysmal atrial fibrillation [OZB7VO7CVRR: 4] & L-sided diplopia with potential hemineglect [...] a non-culprit artery. S/P DESx3 in the tyspkyqt-jm-lapqtd RCA. Aspiration thrombectomy performed, and integrellin bolus [...] complications include novel onset, paroxysmal atrial fibrillation [PBN8CF6CGTH: 5] & L-sided diplopia with potential hemineglect [...] R occipital cardioembolic stroke #Paroxysmal Afib with NB1BYXQO9F score of 5 - No anticoagulation for [...] Glasgow MD PGY1, Internal Medicine Cardiology S2, #3951 I have seen the patient and reviewed [...] in my clinic. Gretchen Yoon MD Pager [phone] Derian Pascual RN - 12/03/2019 9:29 AM [...] Discharge: None Electronically signed: Derian Pascual RN, Tents Assembler Pgr: [phone] 12/03/2019 9:29 AM Gretchen Yoon MD - 12/03/2019 9:01 AM EDT Inpatient Cardiology Progress Note Patient Name: Agnel Luis Salinas Date of Admission: 11/29/2019 ( [...] complications include novel onset, paroxysmal atrial fibrillation [[id number]: 4] & L-sided diplopia with potential hemineglect [...] a non-culprit artery. S/P DESx3 in the bkyurvdu-uf-jxfrmn RCA. Aspiration thrombectomy performed, and integrellin bolus [...] complications include novel onset, paroxysmal atrial fibrillation [VOS4DP1MTBR: 5] & L-sided diplopia with potential hemineglect [...] [facility]. Patient voiced strong will to quit smoking now, understood that we have resources available for help. Plan [P]: --Neurologic-- # Concern for Left-Sided Diplopia, r/o Hemineglect # Concern for CVA, last-known well 11/29/19 - MRI showed possible cardioembolic stroke #Afib with NK4XTSNO9W score of 5 - Stroke Team Consulted; [...] Anticoagulation/Arrhythmia # Novel Onset, Paroxsymal Atrial Fibrillation [IJV1AK1PVRB: 5] - Hold off anticoagulation for at [...] w straight cath prn # Nutrition - [facility] Diet, 2g Na. -- Hematology/Oncology-- # Mild [...] Glasgow MD PGY1, Internal Medicine Cardiology S2, #6189 I have seen the patient and reviewed the resident's above history and I agree with the details as written. The assessment and plan were formulated in discussion with me and I agree with them as documented. Gretchen Yoon MD Pager [phone] Raul Hein RN - 12/03/2019 5:55 AM [...] Negative mcL Appearance UA Clear Clear Spec [place] UA 1.026 1.006 - 1.030 Color UA [...] PGY3 Neurology Resident 12/01/2019 Vascular Neurology Pager [phone] Neurology Attending Attestation I evaluated the patient [...] documented. Deepthi Roman MD Vascular Neurology Standard [facility] Swallow Screen: This screen is to be [...] diet as medical provider deems appropriate. Consider ENTOMOLOGY PROFESSOR consult for full evaluation and diet recommendations. [...] complications include novel onset, paroxysmal atrial fibrillation [PGP5KW0VWTN: 4] & L-sided diplopia with potential hemineglect [...] a non-culprit artery. S/P DESx3 in the zpphaihk-hn-xhxrrx RCA. Aspiration thrombectomy performed, and integrellin bolus [...] complications include novel onset, paroxysmal atrial fibrillation [RHT5GH2BCZI: 5] & L-sided diplopia with potential hemineglect [...] Anticoagulation/Arrhythmia # Novel Onset, Paroxsymal Atrial Fibrillation [[id number]: 5] - Hold off anticoagulation - pending [...] tamsulosin d/t low BP. # Nutrition - [facility] Diet -- Hematology/Oncology-- # Mild Thrombocytopenia, unclear [...] Glasgow MD PGY1, Internal Medicine Cardiology S2, #2899 I have seen the patient and reviewed [...] the ICU team. Gretchen Yoon MD Pager [phone] Natalia Claros APRN - 12/02/2019 8:38 AM [...] - We are signing off. Please page [phone] with any questions or concerns. For questions please call NSGY pager [phone] Natalia Claros APRN 12/02/2019 8:38 AM Clinical Documentation Improvement: Active Hospital Problems Diagnosis ??? Acute ST elevation myocardial infarction (STEMI) of inferior wall ??? Intracranial hemorrhage ??? Hyperlipidemia ??? Tobacco abuse ??? Claudication from peripheral vascular disease, left Resolved Hospital Problems No resolved problems to display. Tello Hsu, JOB DEVELOPER FOR [employer] - 12/02/2019 2:06 AM EDT 12/01/192009 Oxygen [...] afternoon. Upon arrival back in [facility] placed on low flow NC at [...] complications include novel onset, paroxysmal atrial fibrillation [[id number]: 4] & L-sided diplopia with potential hemineglect for which CVA evaluationto be pursued. Active Problems/Subjective: - 11/28: admitted for inferior STEMI, RV failure requiring pressor - got lytics, aspirin and plavix load, heparin gtt, and eptifibatide. 3 MACARIO stents to RCA. Melstone cath - low wedge & CVP so [...] 70%-> 4L NC Hemodynamics: CVP 6 PAP Sys/Octton 25/8 PAP mean 15 CO 4.2 CI [...] a non-culprit artery. S/P DESx3 in the kdelbfmn-fu-cybaee RCA. Aspiration thrombectomy performed, and integrellin bolus [...] complications include novel onset, paroxysmal atrial fibrillation [[id number]: 4] & L-sided diplopia with potential hemineglect [...] Anticoagulation/Arrhythmia # Novel Onset, Paroxsymal Atrial Fibrillation [[id number]: 4] - Obtain: TTE - Pending CVA [...] tamsulosin d/t low BP. # Nutrition - [facility] Diet -- Hematology/Oncology-- # Mild Thrombocytopenia, unclear [...] MD, PGY1 PGY3, Internal Medicine Cardiology S2, #[id number] I have seen the patient and reviewed [...] down the line. Gretchen Yoon MD Pager [phone] ?? Gretchen Yoon MD Pager [phone] Natalia Claros APRN - 12/01/2019 1:33 AM EDT NEUROSURGERY PROGRESS NOTE ID: Angel Luis Salinas is a 74 y.o. male with hemorrhage in the region of the left optic tract s/p STEMI withPCI and stenting on 11/29/2019. INTERVAL Hx: -AMRTIN overnight; neurologically stable -Repeat head CT yesterday [...] per primary team For questions please call toucanBox pager [phone] Natalia Claros APRN 12/01/2019 7:42 AM Clinical Documentation Improvement: Active Hospital Problems Diagnosis ??? Acute ST elevation myocardial infarction (STEMI) of inferior wall ??? Intracranial hemorrhage ??? Hyperlipidemia ??? Tobacco abuse ??? Claudication from peripheral vascular disease, left Resolved Hospital Problems No resolved problems to display. Tello Hsu, JOB DEVELOPER FOR [employer] - 11/30/2019 8:44 PM EDT Respiratory Therapy [...] EDT Narrative:Visited in response to request for Oriental Rug Repairer services. Pt was awake, alert, oriented and in bed. Assessment:Patient coping positively with stresses of illness/hospitalization at this time. Pt says that he is hoping to get better and pt is living with and has children and grandchildren. Pt haspurpose of life and has reason to get getter and to be with family. Outcome: Provided emotional and spiritual support and encouraging presence. [employer]airer services accepted.Conversation to build trusting relationship.Provided pastoral [...] complications include novel onset, paroxysmal atrial fibrillation [[id number]: 4] & L-sided diplopia with potential hemineglect for which CVA evaluationto be pursued. Active Problems/Subjective: - Overnight, CVP < 12 for which a total of 1 L IVF provided - Today AM, patient complains of subjectively reported, left-sided hemineglect with floaters and diplopia [see: exam]. - Otherwise, c/o neck pain 2/2 R IJ Melstone & L radial A line. Otherwise, denies [...] a non-culprit artery. S/P DESx3 in the zlxsnmro-xv-wyrgsg RCA. Aspiration thrombectomy performed, and integrellin bolus [...] complications include novel onset, paroxysmal atrial fibrillation [[id number]: 4] & L-sided diplopia with potential hemineglect [...] Anticoagulation/Arrhythmia # Novel Onset, Paroxsymal Atrial Fibrillation [[id number]: 4] - Obtain: TTE to confirm rhythm [...] tamsulosin d/t low BP. # Nutrition - [facility] Diet -- Hematology/Oncology-- # Mild Thrombocytopenia, unclear [...] MD, PGY3 PGY3, Internal Medicine Cardiology S2, #[id number] I have seen the patient and reviewed [...] down the line. Gretchen Yoon MD Pager [phone] Paola Capps RN - 11/30/2019 6:57 AM EDT PT still requiring 4 of levo, several attempts to titrate down (maps in 70;s) But maps would drop toless than 65. Pt very restless in bed Raising and lowering head denies pain . Integrillin stopped [id number] when bottle complete , urine tea colored [...] PCP: France Lam MD PCP phone #: [phone] Manager Client: None ID/Chief Complaint: Chest pain History of Present Illness: 74 y.o male with no significant PMH, was in usual state of health until yesterday when he woke up at 4am this morning with severe crushing substernal chest pain 04/10. He took two full strength aspirin and came to [facility] ED. At there was found [...] and Compazine. He was transferred directly to [facility] via [facility] for further management. Patient had an emergent PCI with 3 MACARIO stents placed to his RCA, with mild disease of LCX (report pending) at [facility]. He was found to be persistently hypotensive requiring Levo up to 10mcg/min. He was transferred to [facility] after the cath procedure. Bedside RHC showed CI 2.12, PAWP 11, PAP 38/15 indicating hypovolemic state. He received 1L bolus of NS with improvement of his blood pressure to 124/61. History of PAD, HLD - had side reactions to statins - so taking niacin and red rye grain. Chronic active smoker with more than 65 pack years. Family history of [place] in father and two uncles. He's takingbaby [...] ??? Penicillins Pt doesn't remember reaction ??? Feavwgv-Uzq-Kfy Reductase Inhibitors Stiff neck, upset stomach, back pain Family History: Mother: Father: [place] 2 Uncles with MIs Social History: Tobacco: Current active smoker 1 ppd. 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 Vitals: Last value Range [...] in the last 7068 hours. Invalid input(s): [id number] Heme: No results for input(s): LDH, HAPTOGLOBIN, [...] OSH prior to transfer and PCI at [facility]. Massive inferior STEMI with troponin level 20, currently in CVCC due to pressor requirement. BedsideRHC demonstrated evidence of elevated right sided heart failure, but his wedge was wnl. He received 1L bolus with improvement of his blood pressure and reduction of his pressor requirement. PLAN: Admit to Cardiology, S2 Team Pager # [phone] #Inferior STEMI, LEYLA [phone] - Resolving EKG [...] inferior STEMI s/p lytic therapy. Transferred to [facility] and underwent successful PCI of the RCA with MACARIO x3. Gretchen Yoon MD Pager [phone] documented in this encounter Procedure Notes Juventino [...] to the planned procedure. Hand Hygiene: The slat basket maker helper machine did perform hand hygiene prior to arterial [...] line-associated infection. Location of Procedure: [facility] Risks and Benefits: The risks and [...] to the planned procedure. Hand Hygiene: The slat basket maker helper machine did perform hand hygiene prior to line [...] side:right An Introducer (PSI Kit) was used. [place]. Insertion Side: right. Insertion Site: internal jugular. Catheter Details: Number of Lumens: 1 Catheter Type: heparin-coated The line was placed over a guidewire. Confirmation of Venous Placement: Venous placement was confirmed by transducing the pressure. Introducer Insertion Attempts: 1 Comments: Floating the Melstone-Mo Catheter Attempts: 1 Comments: Sterile Dressing: Biopatch [...] better pt back in SR. Please page [phone] for any more cares or concerns Plan [...] complications include novel onset, paroxysmal atrial fibrillation [[id number]: 5]& L-sided diplopia with potential hemineglect for [...] Total Evaluation Minutes, Occupational Therapy: 10 Pager: [phone] FRANCINE Nuñez Occupational Therapy Rehabilitation Department Plan [...] complications include novel onset, paroxysmal atrial fibrillation [BFH8MB3EDUL: 5] & L-sided diplopia with potential hemineglect [...] hand rails). Baseline Mobility: Independent. Drives. Shares database security expert with his , however her mobility is [...] plan as stated. Time IN / OUT: 4657-6842 Total Evaluation Minutes, Physical Therapy: 15(gtx1) Barbara Baldwin, PT Pager: [phone] Physical Therapy Inpatient Rehabilitation Department Plan of [...] he receives all he needs through the [facility]. Consult refused. Romain Tran, MSN, RN-, [facility] Tobacco Sales Support Consultant [facility] Pager #[phone] Plan of Care - Romain Oglesby OT [...] complications include novel onset, paroxysmal atrial fibrillation [EHT0LY3DMVP: 5] & L-sided diplopia with potential hemineglect [...] and measurable assessment of functional outcome. Pager: [phone] ROMAIN OGLESBY OT 12/03/2019 Occupational Therapy Rehabilitation [...] in an outpatient cardiac rehabilitation program at [facility] was discussed. Patient agrees to a referral to this program. His has been a cardiac rehab patient at [facility] and he is familiar with [...] complications include novel onset, paroxysmal atrial fibrillation [PYZ0BY5YRBF: 5] & L-sided diplopia with potential hemineglect [...] hand rails). Baseline Mobility: Independent. Drives. Shares database security expert with his , however her mobility is [...] in this evaluation. Time IN / OUT: 8057-5612 Total Evaluation Minutes, Physical Therapy: 25(eval, gtx1) Barbara Baldwin, PT Pager: [phone] Physical Therapy Inpatient Rehabilitation Department Consult Note [...] 31.2 (L) 12/01/2019 Nutritional Intake Current bed: [facility] Assessment: Patient is with an area [...] Please contact JOHANNA NOBLES RN on pager [phone] or the wound care team at [phone] or pager [phone] skin and wound care concerns or questions. [...] Salinas would be surrogate decision maker per [place] surrogate decision making law. Any patient receiving carspousee at [facility] must abide by [place] law. The hierarchy for surrogate decisionmaking is: [...] The agent with financial power of staff attorney or a conservator appointed in accordance [...] Insurance: N/A Prescription Coverage: Yes Preferred Pharmacy: [place] Other: No Primary Care Provider: France Lam MD [phone] Patient/Caregiver Goals of Treatment: Return home Potential Needs for Transition of Care: Rehab/SNF: Based on discussions with the multi-disciplinary healthcare team, the patient would benefit from SNF level of care at discharge. ?? I have met with the patient to discuss discharge planning needs. I have provided the [facility], Officeof Care Management letter from the Resource Specialist pertaining to rehab referrals. I have also provided a letter describing our affiliations within the [facility] and educated them about their right [...] have [facility] ?? [facility] [address] [place] [address] ?? 2. [address] , [place] [address] Note routed to Forest Ecology Professor who will communicate referrals to facilities and provide any required information. Home Health: If therapies recommend home w/ VNA, the patient has been provided a list of Home Health Agencies/DME vendors which serve their preferred geographic area. A letter describing our affiliations was reviewed with them and they were educated about their right to choose where referrals are placed. Patient requests referral to [facility] [employer]. PHONE: [phone] FAX: [phone] Referral routed to the Forest Ecology Professor for matching with agency/vendor and to provide [...] Insured w/ Medicare. Gets medications filled at [facility] in [place], [place]. Son to transport at discharge Plan: Discharge dispo depending on patient's physical recovery; SNF vs home w/ VNA. A member of the Care Management team will continue to monitor progress, follow for continuity of care and assist with transition of care planning. Derian Pascual RN Pager: [phone] Plan of Care - Estefani Encarnacion RN [...] ??? Penicillins Pt doesn't remember reaction ??? Gzenyba-Uya-Umc Reductase Inhibitors Stiff neck, upset stomach, back [...] noncontrast head CT and CT of the [place] at 1600 hrs. We will [...] vision concerning for stroke. Patient presented to [facility] in transfer for a STEMI after presenting [...] ??? Penicillins Pt doesn't remember reaction ??? 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 Consider ENTOMOLOGY PROFESSOR consult for full evaluation and diet recommendations. [...] Afib admitted s/p thrombolysis and Cath-Stent to [facility] who developed R sided visual [...] hours. Evan Mejia MD Department of Neurology [facility] Brief Op Note - Gretchen Yoon MD - 11/29/2019 8:38 PM EDT Brief Operative Note Patient Name: Angel Luis Salinas : [id number] MR#: [id number] Case Date: 11/29/2019 Surgeon: Surgeon(s) and Role: * Gretchen Yoon MD - Primary * Aidan Ward MD - Fellow Preoperative diagnosis: Inferior STEMI Postoperative diagnosis: Inferior STEMI Procedure(s) (LRB): CARDIAC CATHETERIZATION (N/A) Findings: Discrete 90% stenosis in the prox-to-mid RCA. Severe diffuse disease in the distal vessel. Discrete LCX stenosis in a non-culprit artery. S/P DESx3 in the uohmjmxz-ij-rlizlu RCA. Aspiration thrombectomy performed, and integrellin bolus [...] are i n the results section. CT [place] W STAT 11/30/2019 4:36 Res [...] athologist Signature Potassium 3.9 3.5 - 5.0 [facility] mmol/L [facility] Comment: Please note: ??Patients [...] Organization Address City/State/Z[place] [address] (ABNORMAL) Hemogram (12/08/2019 12:39 PM EDT) Analysis Performed At Patho logist Time Signature WBC 9.9 (H) 4.0 - 9.5 [facility] x[facility](3)/[facility] LABORATORY RBC 4.51 (L) 4.58 - [place] OLIVIA 5.54 [facility] x10(6)/[facility] LABORATORY Hemoglobin 13.0 (L) 13.7 - [place] 16.5 gm/dL [facility] Hematocrit 40.5 40.5 - [place] 48.5 % [facility] MCV 89.8 82.9 - [facility] OLIVIA 93.1 [facility] LABORATORY MCH 28.8 27.5 - [place] 32.1 pg [facility] MCHC 32.1 32.0 - [place] 35.7 gm/dL [facility] Platelets 214 145 - 357 [facility] x10(3)/[facility] LABORATORY RDWSD 49.2 (H) 36.0 - [place] OLIVIA 45.0 [facility] LABORATORY RDWCV 15.1 (H) 11.4 - [facility] 13.8 % [facility] MPV 12.1 7.6 - 12.9 [facility] OLIVIA [facility] LABORATORY nRBC % Auto 0.0 % [facility] nRBC Abs Auto 0.000 0.000 - [facility]BiomeOLIVIA 0.000 [facility] x10(3)/[facility] LABORATORY Specimen Anatomical Collection Method Collection Time Receive d Time (Source) Location / / Volume Laterality Blood specimen 12/08/2019 12:39 0 (specimen) PM EDT 12:47 PM EDT Resulting Agency Comment Spec In Lab Gretchen Yoon MD HEMATOLOGY ORDERABLES Performing Organization Address City/State/ZIP Code Phon e Number [address] Hepatic Function Panel (12/08/2019 6:28 AM EDT) athologist Signature Total Protein 6.6 6.1 - 8.0 [place] gm/dL [facility] Albumin 3.2 3.2 - 5.2 [place] gm/dL [facility] AST 18 0 - 39 [place] unit/L [facility] ALT 13 0 - 55 [facility] OLIVIA unit/L [facility] Alk Phos 64 40 - 130 [facility] OLIVIA unit/L [facility] Total 0.4 0.2 - 1.3 [place] Bilirubin mg/dL [facility] Bili, Direct 0.1 0.0 - 0.3 [facility] OLIVIA mg/dL [facility] Specimen Anatomical Collection Method Collection Time Receive d Time (Source) Location / / Volume Laterality Blood specimen Venous Draw / 12/08/2019 6:28 AM 2019 6:36 (specimen) Unknown EDT AM EDT Resulting Agency Comment Spec In Lab Riki Stevens MD CHEMISTRY ORDERABLES Performing Organization Address City/[facility]/ZIP Code Phon e Number [address] (ABNORMAL) TSH (12/08/2019 6:28 AM EDT) athologist Signature TSH 5.27 (H) 0.27 - 4.20 [facility] mcIU/mL [facility] Specimen Anatomical Collection Method Collection Time Receive d Time (Source) Location / / Volume Laterality Blood specimen Venous Draw / 12/08/2019 6:28 AM 2019 6:36 (specimen) Unknown EDT AM EDT Resulting Agency Comment Spec In Lab Darrell Glasgow MD CHEMISTRY ORDERABLES Performing Organization Address City/[facility]/ZIP Code Phon e Number [address] Potassium (12/08/2019 6:28 AM EDT) P athologist Signature Potassium 4.2 3.5 - 5.0 [facility] mmol/L [facility] Comment: Please note: ??Patients [...] Organization Address City/State/ZIP [place] [address] (ABNORMAL) Differential, Automated (12/08/2019 12:43 AM EDT) Patholo gist Method Time Signature Neutrophils % 60.7 % [facility] Neutr Abs (ANC) 6.81 (H) 1.70 - [facility] 6.10 [facility] x10(3)/[facility] LABORATORY Lymphocytes % 23.4 % [facility] Lymphocytes Abs 2.6 0.9 - 3.2 [facility] x10(3)/[facility] LABORATORY Monocytes % 10.0 % [facility] Monocyte Abs 1.1 (H) 0.3 - 0.9 [facility] x10(3)/[facility] LABORATORY Eosinophils % 3.7 % [facility] Eosinophils Abs 0.4 0.0 - 0.4 [facility] x10(3)/[facility] LABORATORY Basophils % 1.2 % [facility] Basophils Abs 0.1 0.0 - 0.1 [facility] x10(3)/[facility] LABORATORY Immature Gran % 1.00 % [facility] Comment: Immature granulocytes(IG's)percentage an d absolute count will include metamyelocytes, myelocytes, and promyelo cytes. Blood smears from CBCs yielding IG's will be scanned manually for ana nagy. If this scan disagrees with the automated IG or if promyelocytes are not ed, a manual differential will be performed. Pita Gran Abs 0.11 (H) 0.00 - 0.04 x10(3)/[facility] LABORATORY Specimen Anatomical Collection Method Collection Time Receive d Time (Source) Location / / Volume Laterality Blood specimen 12/08/2019 12:43 0 (specimen) AM EDT 12:52 AM EDT Resulting Agency Comment Spec In Lab Riki Stevens MD HEMATOLOGY ORDERABLES Performing Organization Address City/State/Z[place] [address] (ABNORMAL) Hemogram (12/08/2019 12:43 AM EDT) Analysis Performed At Patho logist Time Signature WBC 11.2 (H) 4.0 - 9.5 [facility] x10(3)/[facility] LABORATORY RBC 4.46 (L) 4.58 - [facility] OLIVIA 5.54 [facility] x10(6)/[facility] LABORATORY Hemoglobin 13.1 (L) 13.7 - [facility] 16.5 gm/dL [facility] Hematocrit 40.5 40.5 - [facility] OLIVIA 48.5 % [facility] MCV 90.8 82.9 - [facility] 93.1 [facility] LABORATORY MCH 29.4 27.5 - [facility] OLIVIA 32.1 pg [facility] MCHC 32.3 32.0 - [facility] OLIVIA 35.7 gm/dL [facility] Platelets 215 145 - 357 [facility] x10(3)/[facility] LABORATORY RDWSD 49.8 (H) 36.0 - [facility] OLIVIA 45.0 [facility] LABORATORY RDWCV 15.2 (H) 11.4 - [facility] OLIVIA 13.8 % [facility] MPV 12.3 7.6 - 12.9 [facility] LABORATORY nRBC % Auto 0.0 % [facility] nRBC Abs Auto 0.000 0.000 - [facility] Kid Bunch 0.000 [facility] x10(3)/[facility] LABORATORY Specimen Anatomical Collection Method Collection Time Receive d Time (Source) Location / / Volume Laterality Blood specimen 12/08/2019 12:43 0 (specimen) AM EDT 12:52 AM EDT Resulting Agency Comment Spec In Lab Riki Stevens MD HEMATOLOGY ORDERABLES Performing Organization Address City/State/ZIP Code Phon e Number [address] Magnesium (12/08/2019 12:43 AM EDT) athologist Signature Magnesium 1.01 0.69 - 1.07 [facility] mmol/L [facility] Specimen Anatomical Collection Method Collection Time Receive d Time (Source) Location / / Volume Laterality Blood specimen 12/08/2019 12:43 0 (specimen) AM EDT 12:52 AM EDT Resulting Agency Comment Spec In Lab Gretchen Yoon MD CHEMISTRY ORDERABLES Performing Organization Address City/State/ZIP [place] [address] (ABNORMAL) BMP w/fasting Glucose (12/08/2019 12:43 AM EDT) P athologist Signature Glucose 106 (H) 65 - 99 [facility] Fasting mg/dL [facility] Comment: ?Fasting* Glucose Interpretive [...] of Diabetes Mellitus, Position Statement from the [place] [employer]. ??Diabete s Care, Volume 33, Supplement 1, Jul 2009 BUN 14 10 - 20 mg/dL [facility] Creatinine 1.16 0.80 - [...] estions. Chloride 99 98 - 107 mmol/L [facility] CO2 19 (L) 22 - 31 mmol/L [facility] Anion Gap 16 (H) 5 - 15 mmol/L [facility] Calcium 8.9 8.5 - 10.5 mg/dL [facility] Estimated GFR 62 >=60 mL/min/1.73 m?? [facility] Comment: The eGFR was calculated using the CKD-EP I equation. As with all creatinine based estimates of kidney function, eGFR values calculated with the CKD-EPI equation are not accurate in patients wi th acute kidney failure, extremes of body mass or the acutely ill. [email or web address]/[facility] eGFR 72 >=60 mL/min/1.73 m?? [facility] Comment: The eGFR was calculated using the CKD-EP I equation. As with all creatinine based estimates of kidney function, eGFR values calculated with the CKD-EPI equation are not accurate in patients wi th acute kidney failure, extremes of body mass or the acutely ill. http://Insightly/[facility]AL[facility]kf Specimen Anatomical Collection Method Collection Time Receive d Time (Source) Location / / Volume Laterality Blood specimen 12/08/2019 12:43 0 (specimen) AM EDT 12:52 AM EDT Resulting Agency Comment Spec In Lab Gretchen Yoon MD CHEMISTRY ORDERABLES Performing Organization Address City/State/Z[place] [address] Heparin (unfractionated) Level (12/08/2019 12:43 AM EDT) athologist Signature Heparin UFH 0.60 IU/mL [facility] Comment: Guidelines for therapeutic unfractionate d [...] Organization Address City/State/ZIP [place] [address] Potassium (12/07/2019 8:39 PM EDT) athologist Signature Potassium 4.1 3.5 - 5.0 [facility] mmol/L [facility] Comment: Please note: ??Patients [...] Lagos MD CHEMISTRY ORDERABLES Performing Organization Address City/[facility]/ZIP [place] [address] Potassium (12/07/2019 4:02 PM EDT) P athologist Signature Potassium 4.0 3.5 - 5.0 MELINA OLIVIA mmol/L [facility] Comment: Please note: ??Patients [...] Yoon MD CHEMISTRY ORDERABLES Performing Organization Address City/[facility]/ZIP [place] [address] (ABNORMAL) Hemogram (12/07/2019 4:02 PM EDT) Analysis Performed At Patho logist Time Signature WBC 17.4 (H) 4.0 - 9.5 MELINA OLIVIA x10(3)/[facility] LABORATORY RBC 4.58 4.58 - MELINA OLIVIA 5.54 [facility] x10(6)/[facility] LABORATORY Hemoglobin 13.5 (L) 13.7 - MELINA OLIVIA 16.5 gm/dL [facility] Hematocrit 40.8 40.5 - MELINA OLIVIA 48.5 % [facility] MCV 89.1 82.9 - MELINA OLIVIA 93.1 [facility] LABORATORY MCH 29.5 27.5 - MELINA OLIVIA 32.1 pg [facility] MCHC 33.1 32.0 - MELINA OLIVIA 35.7 gm/dL [facility] Platelets 238 145 - 357 MELINA OLIVIA x10(3)/[facility] LABORATORY RDWSD 48.8 (H) 36.0 - MELINA OLIVIA 45.0 [facility] LABORATORY RDWCV 15.0 (H) 11.4 - [facility] 13.8 % [facility] MPV 12.2 7.6 - 12.9 [facility] LABORATORY nRBC % Auto 0.0 % [facility] nRBC Abs Auto 0.000 0.000 - MELINA MARSHOLIVIA 0.000 [facility] x10(3)/[facility] LABORATORY Specimen Anatomical Collection Method Collection Time Receive d Time (Source) Location / / Volume Laterality Blood specimen 12/07/2019 4:02 PM 020 4:08 (specimen) EDT PM EDT Resulting Agency Comment Spec In Lab Gretchen Yoon MD HEMATOLOGY ORDERABLES Performing Organization Address City/[facility] [place] [address] EKG 12 Lead (12/07/2019 [...] (Bezet) Calculated P -12 degrees MUSE SYSTEM Warren Calculated R 10 degrees MUSE SYSTEM Warren Calculated T -138 degrees MUSE SYSTEM Warren INTERPRETATION Supraventricular tachycardia MUSE SYSTEM Low voltage [...] athologist Signature Potassium 4.2 3.5 - 5.0 [facility] mmol/L [facility] Comment: Please note: ??Patients [...] Lagos MD CHEMISTRY ORDERABLES Performing Organization Address City/[facility] [place] [address] Heparin (unfractionated) Level (12/07/2019 11:43 AM EDT) athologist Signature Heparin UFH 0.59 IU/mL [facility]ATORY Comment: Guidelines for therapeutic unfractionate [...] Lagos MD HEMATOLOGY ORDERABLES Performing Organization Address [facility]/ZIP [place] [address] Heparin (unfractionated) Level (12/07/2019 5:20 AM EDT) P athologist Signature Heparin UFH 0.53 IU/mL [facility] LABORATORY Comment: Guidelines for therapeutic unfractionate [...] Organization Address City/State/ZIP [place] [address] (ABNORMAL) Differential, Automated (12/07/2019 5:20 AM EDT) Patholo gist Method Time Signature Neutrophils % 62.4 % [facility] Neutr Abs (ANC) 5.46 1.70 - [facility] 6.10 [facility] x10(3)/[facility] LABORATORY Lymphocytes % 20.3 % [facility] Lymphocytes Abs 1.8 0.9 - 3.2 [facility] x10(3)/[facility] LABORATORY Monocytes % 11.0 % [facility] Monocyte Abs 1.0 (H) 0.3 - 0.9 [facility] x10(3)/[facility] LABORATORY Eosinophils % 4.5 % [facility] Eosinophils Abs 0.4 0.0 - 0.4 [facility] x10(3)/[facility] LABORATORY Basophils % 0.9 % [facility] Basophils Abs 0.1 0.0 - 0.1 [facility] x10(3)/[facility] LABORATORY Immature Gran % 0.90 % [facility] Comment: Immature granulocytes(IG's)percentage an d absolute count will include metamyelocytes, myelocytes, and promyelo cytes. Blood smears from CBCs yielding IG's will be scanned manually for concor dance. If this scan disagrees with the automated IG or if promyelocytes are not ed, a manual differential will be performed. Pita Gran Abs 0.08 (H) 0.00 - 0.04 x10(3)/[facility] LABORATORY Specimen Anatomical Collection Method Collection Time Receive d Time (Source) Location / / Volume Laterality Blood specimen 12/07/2019 5:20 AM 020 5:37 (specimen) EDT AM EDT Resulting Agency Comment Spec In Lab Riki Stevens MD HEMATOLOGY ORDERABLES Performing Organization Address City/State/ZIP Code Phon e Number [place] [id number] LAB[address]ORY Drive (ABNORMAL) Hemogram (12/07/2019 5:20 AM EDT) Analysis Performed At Patho logist Time Signature WBC 8.7 4.0 - 9.5 [facility] x10(3)/[facility] LABORATORY RBC 4.20 (L) 4.58 - [facility] 5.54 [facility] x10(6)/[facility] LABORATORY Hemoglobin 12.3 (L) 13.7 - [facility] 16.5 gm/dL [facility] Hematocrit 37.4 (L) 40.5 - [facility] 48.5 % [facility] MCV 89.0 82.9 - [facility] 93.1 fL [facility] MCH 29.3 27.5 - [facility] 32.1 pg [facility] MCHC 32.9 32.0 - MELINA MONAE 35.7 gm/dL [facility] Platelets 181 145 - 357 MELINA MONAE x10(3)/[facility] LABORATORY RDWSD 47.7 (H) 36.0 - MELINA MONAE 45.0 [facility] LABORATORY RDWCV 14.8 (H) 11.4 - [facility] OLIVIA 13.8 % [facility] MPV 12.3 7.6 - 12.9 MELINA OLIVIA [facility] LABORATORY nRBC % Auto 0.0 % [facility] nRBC Abs Auto 0.000 0.000 - MELINA MONAE 0.000 [facility] x10(3)/[facility] LABORATORY Specimen Anatomical Collection Method Collection Time Receive d Time (Source) Location / / Volume Laterality Blood specimen 12/07/2019 5:20 AM 020 5:37 (specimen) EDT AM EDT Resulting Agency Comment Spec In Lab Riki Stevens MD HEMATOLOGY ORDERABLES Performing Organization Address City/State/ZIP Code Phon e Number [address] Magnesium (12/07/2019 5:20 AM EDT) P athologist Signature Magnesium 0.89 0.69 - 1.07 [facility] mmol/L [facility] Specimen Anatomical Collection Method Collection Time Receive d Time (Source) Location / / Volume Laterality Blood specimen 12/07/2019 5:20 AM 020 5:37 (specimen) EDT AM EDT Resulting Agency Comment Spec In Lab Gretchen Yoon MD CHEMISTRY ORDERABLES Performing Organization Address City/State/ZIP Code Phon e Number [address] (ABNORMAL) BMP w/fasting Glucose (12/07/2019 5:20 AM EDT) P athologist Signature Glucose 100 (H) 65 - 99 [facility] Fasting mg/dL [facility] Comment: ?Fasting* Glucose Interpretive [...] of Diabetes Mellitus, Position Statement from the [place] [employer]. ??Diabete s Care, Volume 33, Supplement 1, Jul 2009 BUN 14 10 - 20 mg/dL [facility] Creatinine 0.83 0.80 - 1.50 [...] estions. Chloride 101 98 - 107 mmol/L [facility] CO2 20 (L) 22 - 31 mmol/L [facility] Anion Gap 14 5 - 15 mmol/L [facility] Calcium 8.8 8.5 - 10.5 mg/dL [facility] Estimated GFR 87 >=60 mL/min/1.73 m?? [facility] Comment: The eGFR was calculated using the CKD-EP I equation. As with all creatinine based estimates of kidney function, eGFR values calculated with the CKD-EPI equation are not accurate in patients wi th acute kidney failure, extremes of body mass or the acutely ill. [email or web address] eGFR 101 >=60 mL/min/1.73 m?? [facility] Comment: The eGFR was calculated using the CKD-EP I equation. As with all creatinine based estimates of kidney function, eGFR values calculated with the CKD-EPI equation are not accurate in patients wi th acute kidney failure, extremes of body mass or the acutely ill. [email or web address] Specimen Anatomical Collection Method Collection Time Receive d Time (Source) Location / / Volume Laterality Blood specimen 12/07/2019 5:20 AM 020 5:37 (specimen) EDT AM EDT Resulting Agency Comment Spec In Lab Gretchen Yoon MD CHEMISTRY ORDERABLES Performing Organization Address City/[facility] [place] [address] Heparin (unfractionated) Level (12/06/2019 10:14 PM EDT) athologist Signature Heparin UFH 0.29 IU/mL [facility]ATORY Comment: Guidelines for therapeutic unfractionate [...] Lagos MD HEMATOLOGY ORDERABLES Performing Organization Address City/[facility]/ZIP [place] [address] Head wo Contrast [...] For questions regarding this report, please contact [facility] number below. ? Electronically signed by: Merari Collins [facility] ([phone]), at 12/06/2019 10:06 PM Narrative 12/06/2019 10:06 [...] Electronically signed by: Merari Collins [facility] ([phone]), at 12/06/2019 10:06 PM Paris Lagos MD IMG CT ORDERABLES (ABNORMAL) Hemogram (12/06/2019 4:20 PM EDT) Analysis Performed At Patho logist Time Signature WBC 10.4 (H) 4.0 - 9.5 [facility] x10(3)/[facility] LABORATORY RBC 4.32 (L) 4.58 - [facility] OLIVIA 5.54 [facility] x10(6)/[facility] LABORATORY Hemoglobin 12.5 (L) 13.7 - [facility] 16.5 gm/dL [facility] Hematocrit 38.4 (L) 40.5 - [facility] 48.5 % [facility] MCV 88.9 82.9 - [facility] 93.1 [facility] LABORATORY MCH 28.9 27.5 - MELINA OLIVIA 32.1 pg [facility] MCHC 32.6 32.0 - [facility] 35.7 gm/dL [facility] Platelets 194 145 - 357 [facility] x10(3)/[facility] LABORATORY RDWSD 46.9 (H) 36.0 - [facility] 45.0 [facility]ORATORY RDWCV 14.6 (H) 11.4 - [facility] OLIVIA 13.8 % [facility] MPV 11.9 7.6 - 12.9 [facility] OLIVIA [facility]ORATORY nRBC % Auto 0.0 % [facility] nRBC Abs Auto 0.000 0.000 - [facility] OLIVIA 0.000 [facility] x10(3)/[facility] LABORATORY Specimen Anatomical Collection Method Collection Time Receive d Time (Source) Location / / Volume Laterality Blood specimen 12/06/2019 4:20 PM 020 4:31 (specimen) EDT PM EDT Resulting Agency Comment Spec In Lab Gretchen Yoon MD HEMATOLOGY ORDERABLES Performing Organization Address City/State/ZIP [place] [address] Heparin (unfractionated) Level (12/06/2019 4:20 PM EDT) P athologist Signature Heparin UFH 0.30 IU/mL [facility] Comment: Guidelines for therapeutic unfractionate [...] Organization Address City/State/ZIP [place] [address] Heparin (unfractionated) Level (12/06/2019 10:02 AM EDT) athologist Signature Heparin UFH <0.04 IU/mL [facility] Comment: Guidelines for therapeutic unfractionate [...] Organization Address City/State/ZIP Code Phon e Number [address] Magnesium (12/06/2019 3:36 AM EDT) P athologist Signature Magnesium 0.86 0.69 - 1.07 [facility] mmol/L [facility] Specimen Anatomical Collection Method Collection Time Receive d Time (Source) Location / / Volume Laterality Blood specimen 12/06/2019 3:36 AM 020 3:45 (specimen) EDT AM EDT Resulting Agency Comment Spec In Lab Gretchen Yoon MD CHEMISTRY ORDERABLES Performing Organization Address City/State/ZIP [place] [address] (ABNORMAL) BMP w/fasting Glucose (12/06/2019 3:36 AM EDT) P athologist Signature Glucose 103 (H) 65 - 99 [facility] Fasting mg/dL [facility] Comment: ?Fasting* Glucose Interpretive [...] of Diabetes Mellitus, Position Statement from the [place] [employer]. ??Diabete s Care, Volume 33, Supplement 1, Jul 2009 BUN 20 10 - 20 mg/dL [facility] Creatinine 0.88 0.80 - 1.50 [...] estions. Chloride 103 98 - 107 mmol/L [facility] CO2 19 (L) 22 - 31 mmol/L [facility] Anion Gap 14 5 - 15 mmol/L [facility] Calcium 8.7 8.5 - 10.5 mg/dL [facility] Estimated GFR 85 >=60 mL/min/1.73 m?? [facility] Comment: The eGFR was calculated using the CKD-EP I equation. As with all creatinine based estimates of kidney function, eGFR values calculated with the CKD-EPI equation are not accurate in patients wi th acute kidney failure, extremes of body mass or the acutely ill. [email or web address] [email or web address] eGFR 99 >=60 mL/min/1.73 m?? [facility] Comment: The eGFR was calculated using the CKD-EP I equation. As with all creatinine based estimates of kidney function, eGFR values calculated with the CKD-EPI equation are not accurate in patients wi th acute kidney failure, extremes of body mass or the acutely ill. [email or web address]/[email or web address] [email or web address] Specimen Anatomical Collection Method Collection Time Receive d Time (Source) Location / / Volume Laterality Blood specimen 12/06/2019 3:36 AM 020 3:45 (specimen) EDT AM EDT Resulting Agency Comment Spec In Lab Gretchen Yoon MD CHEMISTRY ORDERABLES Performing Organization Address City/State/ZIP [place] [address] (ABNORMAL) Hemogram (12/06/2019 3:36 AM EDT) Analysis Performed At Patho logist Time Signature WBC 9.2 4.0 - 9.5 [facility] x10(3[facility] LABORATORY RBC 3.99 (L) 4.58 - MELINA OLIVIA 5.54 [facility] x10(6)/[facility] LABORATORY Hemoglobin 11.9 (L) 13.7 - MELINA OLIVIA 16.5 gm/dL [facility] Hematocrit 35.5 (L) 40.5 - [facility] 48.5 % [facility] MCV 89.0 82.9 - [facility] 93.1 [facility] LABORATORY MCH 29.8 27.5 - MELINA OLIVIA 32.1 pg [facility] MCHC 33.5 32.0 - MELINA OLIVIA 35.7 gm/dL [facility] Platelets 164 145 - 357 [facility] x10(3)/[facility] LABORATORY RDWSD 47.6 (H) 36.0 - MELINA OLIVIA 45.0 [facility] LABORATORY RDWCV 14.7 (H) 11.4 - [facility] OLIVIA 13.8 % [facility] MPV 11.9 7.6 - 12.9 [facility]ORY nRBC % Auto 0.0 % [facility] nRBC Abs Auto 0.000 0.000 - MELINA OLIVIA 0.000 [facility] x10(3)/[facility] LABORATORY Specimen Anatomical Collection Method Collection Time Receive d Time (Source) Location / / Volume Laterality Blood specimen 12/06/2019 3:36 AM 020 3:45 (specimen) EDT AM EDT Resulting Agency Comment Spec In Lab Gretchen Yoon MD HEMATOLOGY ORDERABLES Performing Organization Address City/[facility]/ZIP [place] [address] (ABNORMAL) Differential, Automated (12/05/2019 10:52 PM EDT) [facility]ist Method Time Signature Neutrophils % 61.9 % [facility] Neutr Abs (ANC) 6.02 1.70 - [facility] 6.10 [facility] x10(3)/[facility] LABORATORY Lymphocytes % 22.4 % [facility] Lymphocytes Abs 2.2 0.9 - 3.2 [facility] x10(3)/[facility] LABORATORY Monocytes % 10.4 % [facility] Monocyte Abs 1.0 (H) 0.3 - 0.9 [facility] x10(3)/[facility] LABORATORY Eosinophils % 4.1 % [facility] Eosinophils Abs 0.4 0.0 - 0.4 [facility] x10(3)/[facility] LABORATORY Basophils % 0.7 % [facility] Basophils Abs 0.1 0.0 - 0.1 [facility] x10(3)/[facility] LABORATORY Immature Gran % 0.50 % [facility] Comment: Immature granulocytes(IG's)percentage an d absolute count will include metamyelocytes, myelocytes, and promyelo cytes. Blood smears from CBCs yielding IG's will be scanned manually for concor dance. If this scan disagrees with the automated IG or if promyelocytes are not ed, a manual differential will be performed. Pita Gran Abs 0.05 (H) 0.00 - 0.04 x10(3)/[facility] LABORATORY Specimen Anatomical Collection Method Collection Time Receive d Time (Source) Location / / Volume Laterality Blood specimen 12/05/2019 10:52 0 (specimen) PM EDT 10:59 PM EDT Resulting Agency Comment Spec In Lab Mandi Barrera MD HEMATOLOGY ORDERABLES Performing Organization Address City/State/ZIP [place] [address] (ABNORMAL) Hemogram (12/05/2019 10:52 PM EDT) Analysis Performed At [facility] logist Time Signature WBC 9.7 (H) 4.0 - 9.5 [facility] x10(3)/[facility] LABORATORY RBC 4.07 (L) 4.58 - MELINA WHITTENCOCK 5.54 [facility] x10(6)/[facility] LABORATORY Hemoglobin 11.9 (L) 13.7 - MELINA [place] 16.5 gm/dL [facility] Hematocrit 36.4 (L) 40.5 - MELINA [place] 48.5 % [facility] MCV 89.4 82.9 - [facility] OLIVIA 93.1 [facility] LABORATORY MCH 29.2 27.5 - MELINA [place] 32.1 pg [facility] MCHC 32.7 32.0 - MELINA [place] 35.7 gm/dL [facility] Platelets 167 145 - 357 [facility] x10(3)/[facility] LABORATORY RDWSD 47.7 (H) 36.0 - MELINA [place] 45.0 [facility] RDWCV 14.6 (H) 11.4 - [facility] 13.8 % [facility] MPV 12.1 7.6 - 12.9 [facility] LABORATORY nRBC % Auto 0.0 % [facility] nRBC Abs Auto 0.000 0.000 - [facility] OLIVIA 0.000 [facility] x10(3)/[facility] LABORATORY Specimen Anatomical Collection Method Collection Time Receive d Time (Source) Location / / Volume Laterality Blood specimen 12/05/2019 10:52 0 (specimen) PM EDT 10:59 PM EDT Resulting Agency Comment Spec In Lab Mandi Barrera MD HEMATOLOGY ORDERABLES Performing Organization Address City/State/ZIP [place] [address] Heparin (unfractionated) Level (12/05/2019 10:52 PM EDT) P athologist Signature Heparin UFH <0.04 IU/mL [facility] LABORATORY Comment: Guidelines for therapeutic unfractionate [...] Organization Address City/State/ZIP [place] [address] MRI Brain wwo Contrast [...] Electronically signed by: ALBA Jenkins [facility] ([phone]), at 12/05/2019 10:02 PM Paris Lagos MD IMG MRI ORDERABLES (ABNORMAL) Hemogram (12/05/2019 1:00 PM EDT) Analysis Performed At Patho logist Time Signature WBC 8.7 4.0 - 9.5 [facility] x10(3)/[facility] LABORATORY RBC 4.17 (L) 4.58 - [facility] 5.54 [facility] x10(6)/[facility] LABORATORY Hemoglobin 12.4 (L) 13.7 - [facility] 16.5 gm/dL [facility] Hematocrit 37.0 (L) 40.5 - [facility] 48.5 % [facility] MCV 88.7 82.9 - [facility] 93.1 [facility] LABORATORY MCH 29.7 27.5 - [facility] 32.1 pg [facility] MCHC 33.5 32.0 - [facility] 35.7 gm/dL [facility] Platelets 173 145 - 357 [facility] x10(3)/[facility] LABORATORY RDWSD 47.3 (H) 36.0 - [facility] 45.0 [facility] LABORATORY RDWCV 14.6 (H) 11.4 - [facility] 13.8 % [facility] MPV 12.1 7.6 - 12.9 [facility] LABORATORY nRBC % Auto 0.0 % [facility] nRBC Abs Auto 0.000 0.000 - [facility] 0.000 [facility] x10(3)/[facility] LABORATORY Specimen Anatomical Collection Method Collection Time Receive d Time (Source) Location / / Volume Laterality Blood specimen 12/05/2019 1:00 PM 020 1:13 (specimen) EDT PM EDT Resulting Agency Comment Spec In Lab Gretchen Yoon MD HEMATOLOGY ORDERABLES Performing Organization Address City/State/Z[place] [address] EKG 12 Lead (12/05/2019 10:52 AM EDT) Component Value Ref Range Test Analysis Performed Pathologis t Method Time At Signature Ventricular rate 72 BPM MUSE SYSTEM Atrial Rate 72 BPM MUSE SYSTEM P-R Interval 138 ms MUSE SYSTEM QRS Duration 96 ms MUSE SYSTEM Q-T Interval 396 ms MUSE SYSTEM QTC Calculated 433 ms MUSE SYSTEM (Bezet) Calculated P Warren 65 degrees MUSE SYSTEM Calculated R Warren 13 degrees MUSE SYSTEM Calculated T Warren 0 degrees MUSE SYSTEM INTERPRETATION Sinus rhythm Occasional Premature ventricular complexe s MUSE SYSTEM Possible Inferior infarct (cited on or before 29-NOV-2019) Abnormal ECG When compared with ECG of 04-DEC-2019 10:43, Sinus rhythm has replaced Atrial fibrillation Vent. rate has decreased BY ??86 BPM Confirmed by MD Ceja Daniel ([id number]) on 12/05/2019 3:55:22 PM Specimen Anatomical Collection Method Collection Time Receive d Time (Source) Location / / Volume Laterality 12/05/2019 10:52 12/05/2019 3:55 AM EDT PM EDT Paris Lagos MD ECG ORDERABLES Performing Organization Address City/State/ZIP Code Phon e Number MUSE SYSTEM Duplex Study for DVT, Bilat legs (12/05/2019 7:00 AM EDT) Component Value Ref Test Analysis Performed At [facility] Range Method Time Signature VB Text Department: Vascular Surgery Lab VASCUBASE Report Patient: [id number] (ANGEL LUIS SALINAS) CPT: 73662 ICD10: I26.99 Referring Physician: GRETCHEN YOON ?? [...] athologist Signature Magnesium 0.87 0.69 - 1.07 [facility] mmol/L [facility] Specimen Anatomical Collection Method Collection Time Receive d Time (Source) Location / / Volume Laterality Blood specimen 12/05/2019 4:18 AM 020 4:31 (specimen) EDT AM EDT Resulting Agency Comment Spec In Lab Gretchen Yoon MD CHEMISTRY ORDERABLES Performing Organization Address City/[facility]/ZIP [place] [address] (ABNORMAL) BMP w/fasting Glucose (12/05/2019 4:18 AM EDT) P athologist Signature Glucose 104 (H) 65 - 99 [facility] Fasting mg/dL [facility] Comment: ?Fasting* Glucose Interpretive [...] of Diabetes Mellitus, Position Statement from the [place] [employer]. ??Diabete s Care, Volume 33, Supplement 1, Jul 2009 BUN 21 (H) 10 - 20 mg/dL [facility] Creatinine 1.02 0.80 - 1.50 [...] estions. Chloride 103 98 - 107 mmol/L [facility] CO2 21 (L) 22 - 31 mmol/L [facility] Anion Gap 12 5 - 15 mmol/L [facility] Calcium 8.8 8.5 - 10.5 mg/dL [facility] Estimated GFR 73 >=60 mL/min/1.73 m?? [facility] Comment: The eGFR was calculated using the CKD-EP I equation. As with all creatinine based estimates of kidney function, eGFR values calculated with the CKD-EPI equation are not accurate in patients wi th acute kidney failure, extremes of body mass or the acutely ill. [email or web address]://Insightly/[facility] BUFFALOnkf eGFR 84 >=60 mL/min/1.73 m?? [facility] Comment: The eGFR was calculated using the CKD-EP I equation. As with all creatinine based estimates of kidney function, eGFR values calculated with the CKD-EPI equation are not accurate in patients wi th acute kidney failure, extremes of body mass or the acutely ill. [email or web address]://Insightly/[facility] BUFFALOnkf Specimen Anatomical Collection Method Collection Time Receive d Time (Source) Location / / Volume Laterality Blood specimen 12/05/2019 4:18 AM 020 4:31 (specimen) EDT AM EDT Resulting Agency Comment Spec In Lab Gretchen Yoon MD CHEMISTRY ORDERABLES Performing Organization Address City/State/ZIP [place] [address] (ABNORMAL) Hemogram (12/05/2019 4:18 AM EDT) Analysis Performed At Patho logist Time Signature WBC 8.6 4.0 - 9.5 [facility] x10(3)/[facility] LABORATORY RBC 4.28 (L) 4.58 - [place] OLIVIA 5.54 [facility] x10(6)/[facility] LABORATORY Hemoglobin 12.4 (L) 13.7 - [facility] 16.5 gm/dL [facility] Hematocrit 37.3 (L) 40.5 - [facility] 48.5 % [facility] MCV 87.1 82.9 - [facility] 93.1 [facility] LABORATORY MCH 29.0 27.5 - [facility] 32.1 pg [facility] MCHC 33.2 32.0 - [facility] 35.7 gm/dL [facility] Platelets 163 145 - 357 [facility] x10(3)/[facility] LABORATORY RDWSD 46.4 (H) 36.0 - [facility] 45.0 [facility] LABORATORY RDWCV 14.4 (H) 11.4 - [facility] 13.8 % [facility] MPV 11.7 7.6 - 12.9 [facility] LABORATORY nRBC % Auto 0.0 % [facility] nRBC Abs Auto 0.000 0.000 - [facility] 0.000 [facility] x10(3)/[facility] LABORATORY Specimen Anatomical Collection Method Collection Time Receive d Time (Source) Location / / Volume Laterality Blood specimen 12/05/2019 4:18 AM 020 4:31 (specimen) EDT AM EDT Resulting Agency Comment Spec In Lab Gretchen Yoon MD HEMATOLOGY ORDERABLES Performing Organization Address City/State/[place] [address] Cardiac for Morphology [...] For questions regarding this report, please contact [facility] number below. ? Electronically signed by: Roselyn Luciano [facility] ([phone]), at 12/04/2019 6:16 PM Narrative 12/04/2019 6:16 [...] from neck/greatest puja meter to back wall: LEBANESE 91, CAU 13: ??19 mm CORTES ??1, [...] from neck/greatest puja meter to back wall: LEBANESE 91, CAU 13: 19 mm CORTES 1, [...] Electronically signed by: Roselyn Luciano, [facility] ([phone]), at 12/04/2019 6:16 PM Gretchen Yoon MD IMG CT ORDERABLES (ABNORMAL) Hemogram (12/04/2019 12:55 PM EDT) Analysis Performed At Patho logist Time Signature WBC 8.9 4.0 - 9.5 [facility] OLIVIA x10(3)/[facility] LABORATORY RBC 4.69 4.58 - [facility] OLIVIA 5.54 [facility] x10(6)/[facility] LABORATORY Hemoglobin 13.5 (L) 13.7 - [facility] 16.5 gm/dL [facility] Hematocrit 41.7 40.5 - [facility] OLIVIA 48.5 % [facility] MCV 88.9 82.9 - [facility] 93.1 fL [facility] MCH 28.8 27.5 - [place] OLIVIA 32.1 pg [facility] MCHC 32.4 32.0 - [facility] OLIVIA 35.7 gm/dL [facility] Platelets 196 145 - 357 [facility] x10(3)/[facility] LABORATORY RDWSD 46.7 (H) 36.0 - [place] OLIVIA 45.0 [facility] LABORATORY RDWCV 14.5 (H) 11.4 - [place] OLIVIA 13.8 % [facility] MPV 12.1 7.6 - 12.9 MELINA MONAE [facility] LABORATORY nRBC % Auto 0.0 % [facility] nRBC Abs Auto 0.000 0.000 - [place] MONAE 0.000 [facility] x10(3)/[facility] LABORATORY Specimen Anatomical Collection Method Collection Time Receive d Time (Source) Location / / Volume Laterality Blood specimen 12/04/2019 12:55 0 1:06 (specimen) PM EDT PM EDT Resulting Agency Comment Spec In Lab Gretchen Yoon MD HEMATOLOGY ORDERABLES Performing Organization Address City/[facility]/ZIP [place] [address] EKG 12 Lead (12/04/2019 10:43 AM EDT) Component Value Ref Range Test Analysis Performed Pathologis t Method Time At Signature Ventricular rate 158 BPM MUSE SYSTEM Atrial Rate 102 BPM MUSE SYSTEM QRS Duration 92 ms MUSE SYSTEM Q-T Interval 294 ms MUSE SYSTEM QTC Calculated 476 ms MUSE SYSTEM (Bezet) Calculated R Warren 17 degrees MUSE SYSTEM Calculated T Warren 90 degrees MUSE SYSTEM INTERPRETATION Atrial fibrillation with rapid ventricular response MUSE SYSTEM Possible Inferior infarct (cited on or before 29-NOV-2019) Abnormal ECG When compared with ECG of 30-NOV-2019 21:07, Atrial fibrillation has replaced Sinus rhythm Vent. rate has increased BY ??65 BPM Confirmed by MD Ceja Daniel ([id number]) on 12/05/2019 8:59:44 AM Specimen Anatomical Collection Method Collection Time Receive d Time (Source) Location / / Volume Laterality 12/04/2019 10:43 12/05/2019 8:59 AM EDT AM EDT Gretchen Yoon MD ECG ORDERABLES Performing Organization Address City/State/ZIP Code Phon e Number MUSE SYSTEM (ABNORMAL) Magnesium (12/04/2019 4:28 AM EDT) P athologist Signature Magnesium 1.17 (H) 0.69 - 1.07 [facility] mmol/L [facility] Specimen Anatomical Collection Method Collection Time Receive d Time (Source) Location / / Volume Laterality Blood specimen 12/04/2019 4:28 AM 020 4:40 (specimen) EDT AM EDT Resulting Agency Comment Spec In Lab Gretchen Yoon MD CHEMISTRY ORDERABLES Performing Organization Address City/State/ZIP [place] [address] (ABNORMAL) BMP w/fasting Glucose (12/04/2019 4:28 AM EDT) athologist Signature Glucose 108 (H) 65 - 99 [facility] Fasting mg/dL [facility] Comment: ?Fasting* Glucose Interpretive [...] of Diabetes Mellitus, Position Statement from the [place] [employer]. ??Diabete s Care, Volume 33, Supplement 1, Jul 2009 BUN 19 10 - 20 mg/dL [facility] Creatinine 0.89 0.80 - 1.50 [...] estions. Chloride 104 98 - 107 mmol/L [facility] CO2 19 (L) 22 - 31 mmol/L [facility] Anion Gap 12 5 - 15 mmol/L [facility] Calcium 8.5 8.5 - 10.5 mg/dL [facility] Estimated GFR 85 >=60 mL/min/1.73 m?? [facility] Comment: The eGFR was calculated using the CKD-EP I equation. As with all creatinine based estimates of kidney function, eGFR values calculated with the CKD-EPI equation are not accurate in patients wi th acute kidney failure, extremes of body mass or the acutely ill. [email or web address]/[facility] BUFFALOnk eGFR 98 >=60 mL/min/1.73 m?? [facility] Comment: The eGFR was calculated using the CKD-EP I equation. As with all creatinine based estimates of kidney function, eGFR values calculated with the CKD-EPI equation are not accurate in patients wi th acute kidney failure, extremes of body mass or the acutely ill. [email or web address]://Insightly/[facility] BUFFALOnkf Specimen Anatomical Collection Method Collection Time Receive d Time (Source) Location / / Volume Laterality Blood specimen 12/04/2019 4:28 AM 020 4:40 (specimen) EDT AM EDT Resulting Agency Comment Spec In Lab Gretchen Yoon MD CHEMISTRY ORDERABLES Performing Organization Address City/State/ZIP [place] [address] (ABNORMAL) Hemogram (12/04/2019 4:28 AM EDT) Analysis Performed At Patho logist Time Signature WBC 7.8 4.0 - 9.5 [facility] x10(3)/[facility] LABORATORY RBC 4.10 (L) 4.58 - [facility] 5.54 [facility] x10(6)/[facility] LABORATORY Hemoglobin 12.0 (L) 13.7 - [facility] 16.5 gm/dL [facility] Hematocrit 36.5 (L) 40.5 - [facility] 48.5 % [facility] MCV 89.0 82.9 - [facility] 93.1 fL [facility] MCH 29.3 27.5 - [place] MONAE 32.1 pg [facility] MCHC 32.9 32.0 - M[place] MONAE 35.7 gm/dL [facility] Platelets 151 145 - 357 [place] MARSHOLIVIA x10(3)/[facility] LABORATORY RDWSD 46.9 (H) 36.0 - M[place] MONAE 45.0 [facility] LABORATORY RDWCV 14.4 (H) 11.4 - M[place] MONAE 13.8 % [facility] MPV 12.2 7.6 - 12.9 M[place] MONAE fL [facility] nRBC % Auto 0.0 % [facility] nRBC Abs Auto 0.000 0.000 - [place] MONAE 0.000 [facility] x10(3)/[facility] LABORATORY Specimen Anatomical Collection Method Collection Time Receive d Time (Source) Location / / Volume Laterality Blood specimen 12/04/2019 4:28 AM 020 4:40 (specimen) EDT AM EDT Resulting Agency Comment Spec In Lab Gretchen Yoon MD HEMATOLOGY ORDERABLES Performing Organization Address City/[facility]/ZIP Code Phon e Number [address] Potassium (12/03/2019 7:55 PM EDT) athologist Signature Potassium 3.9 3.5 - 5.0 [facility] mmol/L [facility] Comment: Please note: ??Patients [...] Organization Address City/State/ZIP Code Phon e Number [address] Potassium (12/03/2019 1:57 PM EDT) athologist Signature Potassium 3.7 3.5 - 5.0 [place] OLIVIA mmol/L [facility] Comment: Please note: ??Patients [...] Organization Address City/State/ZIP [place] [address] (ABNORMAL) Hemogram (12/03/2019 1:57 PM EDT) Analysis Performed At Patho logist Time Signature WBC 8.8 4.0 - 9.5 [facility] x10(3)/[facility] LABORATORY RBC 4.27 (L) 4.58 - [place] OLIVIA 5.54 [facility] x10(6)/[facility] LABORATORY Hemoglobin 12.5 (L) 13.7 - [place] OLIVIA 16.5 gm/dL [facility] Hematocrit 37.5 (L) 40.5 - [place] OLIVIA 48.5 % [facility] MCV 87.8 82.9 - [place] OLIVIA 93.1 [facility] LABORATORY MCH 29.3 27.5 - [place] OLIVIA 32.1 pg [facility] MCHC 33.3 32.0 - [place] OLIVIA 35.7 gm/dL [facility] Platelets 158 145 - 357 [facility] x10(3)/[facility] LABORATORY RDWSD 46.9 (H) 36.0 - [place] OLIVIA 45.0 [facility] LABORATORY RDWCV 14.5 (H) 11.4 - [place] OLIVIA 13.8 % [facility] MPV 12.2 7.6 - 12.9 M[place] OLIVIA [facility] LABORATORY nRBC % Auto 0.0 % [facility] nRBC Abs Auto 0.000 0.000 - [place] OLIVIA 0.000 [facility] x10(3)/[facility] LABORATORY Specimen Anatomical Collection Method Collection Time Receive d Time (Source) Location / / Volume Laterality Blood specimen 12/03/2019 1:57 PM 020 2:21 (specimen) EDT PM EDT Resulting Agency Comment Spec In Lab Gretchen Yoon MD HEMATOLOGY ORDERABLES Performing Organization Address City/State/ZIP Code Phon e Number [address] Magnesium (12/03/2019 4:02 AM EDT) athologist Signature Magnesium 0.79 0.69 - 1.07 [facility] mmol/L [facility] Specimen Anatomical Collection Method Collection Time Receive d Time (Source) Location / / Volume Laterality Blood specimen 12/03/2019 4:02 AM 020 4:16 (specimen) EDT AM EDT Resulting Agency Comment Spec In Lab Gretchen Yoon MD CHEMISTRY ORDERABLES Performing Organization Address City/State/ZIP [place] [address] (ABNORMAL) BMP w/fasting Glucose (12/03/2019 4:02 AM EDT) P athologist Signature Glucose 100 (H) 65 - 99 [facility] Fasting mg/dL [facility] Comment: ?Fasting* Glucose Interpretive [...] of Diabetes Mellitus, Position Statement from the [place] [employer]. ??Diabete s Care, Volume 33, Supplement 1, Jul 2009 BUN 17 10 - 20 mg/dL [facility] Creatinine 0.95 0.80 - 1.50 [...] estions. Chloride 103 98 - 107 mmol/L [facility] CO2 18 (L) 22 - 31 mmol/L [facility] Anion Gap 15 5 - 15 mmol/L [facility] Calcium 8.3 (L) 8.5 - 10.5 mg/dL [facility] Estimated GFR 79 >=60 mL/min/1.73 m?? [facility] Comment: The eGFR was calculated using the CKD-EP I equation. As with all creatinine based estimates of kidney function, eGFR values calculated with the CKD-EPI equation are not accurate in patients wi th acute kidney failure, extremes of body mass or the acutely ill. [email or web address]://Insightly/[facility] BUFFALOnkf eGFR 92 >=60 mL/min/1.73 m?? [facility] Comment: The eGFR was calculated using the CKD-EP I equation. As with all creatinine based estimates of kidney function, eGFR values calculated with the CKD-EPI equation are not accurate in patients wi th acute kidney failure, extremes of body mass or the acutely ill. [email or web address] Specimen Anatomical Collection Method Collection Time Receive d Time (Source) Location / / Volume Laterality Blood specimen 12/03/2019 4:02 AM 020 4:16 (specimen) EDT AM EDT Resulting Agency Comment Spec In Lab Gretchen Yoon MD CHEMISTRY ORDERABLES Performing Organization Address City/State/ZIP [place] [address] (ABNORMAL) Hemogram (12/03/2019 4:02 AM EDT) Analysis Performed At Patho logist Time Signature WBC 9.1 4.0 - 9.5 [facility] x10(3)/[facility] LABORATORY RBC 4.01 (L) 4.58 - [facility] 5.54 [facility] x10(6)/[facility] LABORATORY Hemoglobin 11.8 (L) 13.7 - [facility] 16.5 gm/dL [facility] Hematocrit 35.6 (L) 40.5 - [facility] 48.5 % [facility] MCV 88.8 82.9 - [facility] 93.1 [facility] LABORATORY MCH 29.4 27.5 - [facility] 32.1 pg [facility] MCHC 33.1 32.0 - [facility] 35.7 gm/dL [facility] Platelets 130 (L) 145 - 357 [facility] x10(3)/[facility] LABORATORY RDWSD 46.6 (H) 36.0 - [facility] 45.0 [facility] LABORATORY RDWCV 14.4 (H) 11.4 - [facility] 13.8 % [facility] MPV 12.4 7.6 - 12.9 [facility] LABORATORY nRBC % Auto 0.0 % [facility] nRBC Abs Auto 0.000 0.000 - [facility] 0.000 [facility] x10(3)/[facility] LABORATORY Specimen Anatomical Collection Method Collection Time Receive d Time (Source) Location / / Volume Laterality Blood specimen 12/03/2019 4:02 AM 020 4:16 (specimen) EDT AM EDT Resulting Agency Comment Spec In Lab Gretchen Yoon MD HEMATOLOGY ORDERABLES Performing Organization Address City/State/Z[place] [address] XR Chest One View [...] Signature WBC 10.6 (H) 4.0 - 9.5 [facility] x10(3)/[facility] LABORATORY RBC 4.00 (L) 4.58 - [facility] 5.54 [facility] x10(6)/[facility] LABORATORY Hemoglobin 11.9 (L) 13.7 - [facility] 16.5 gm/dL [facility] Hematocrit 35.7 (L) 40.5 - [facility] 48.5 % [facility] MCV 89.3 82.9 - [facility] 93.1 [facility] LABORATORY MCH 29.8 27.5 - [facility] 32.1 pg [facility] MCHC 33.3 32.0 - [facility] 35.7 gm/dL [facility] Platelets 120 (L) 145 - 357 [facility] x10(3)/[facility] LABORATORY RDWSD 47.5 (H) 36.0 - [facility] 45.0 [facility] LABORATORY RDWCV 14.6 (H) 11.4 - [facility] 13.8 % [facility] MPV 12.0 7.6 - 12.9 [facility] LABORATORY nRBC % Auto 0.0 % [facility] nRBC Abs Auto 0.000 0.000 - [facility] 0.000 [facility] x10(3)/[facility] LABORATORY Specimen Anatomical Collection Method Collection Time Receive d Time (Source) Location / / Volume Laterality Blood specimen 12/02/2019 12:50 0 1:22 (specimen) PM EDT PM EDT Resulting Agency Comment Spec In Lab Gretchen Yoon MD HEMATOLOGY ORDERABLES Performing Organization Address City/State/Z[place] [address] Blue Tube HOLD (12/02/2019 4:55 AM EDT) P athologist Signature Blue Hold Sample in [facility] lab. [facility] Specimen Anatomical Collection Method Collection Time Receive d Time (Source) Location / / Volume Laterality Blood specimen Venous Draw / 12/02/2019 4:55 AM 2019 5:03 (specimen) Unknown EDT AM EDT Darrell Glasgow MD HEMATOLOGY ORDERABLES Performing Organization Address City/State/ZIP Code Phon e Number [address] Magnesium (12/02/2019 4:55 AM EDT) athologist Signature Magnesium 0.85 0.69 - 1.07 [facility] mmol/L [facility] Specimen Anatomical Collection Method Collection Time Receive d Time (Source) Location / / Volume Laterality Blood specimen 12/02/2019 4:55 AM 020 5:02 (specimen) EDT AM EDT Resulting Agency Comment Spec In Lab Gretchen Yoon MD CHEMISTRY ORDERABLES Performing Organization Address City/[facility]/ZIP [place] [address] (ABNORMAL) BMP w/fasting Glucose (12/02/2019 4:55 AM EDT) athologist Signature Glucose 114 (H) 65 - 99 [facility] Fasting mg/dL [facility] Comment: ?Fasting* Glucose Interpretive [...] of Diabetes Mellitus, Position Statement from the [place] [employer]. ??Diabete s Care, Volume 33, Supplement 1, Jul 2009 BUN 13 10 - 20 mg/dL [facility] Creatinine 0.93 0.80 - 1.50 [...] estions. Chloride 105 98 - 107 mmol/L [facility] CO2 18 (L) 22 - 31 mmol/L [facility] Anion Gap 12 5 - 15 mmol/L [facility] Calcium 8.1 (L) 8.5 - 10.5 mg/dL [facility] Estimated GFR 81 >=60 mL/min/1.73 m?? [facility] Comment: The eGFR was calculated using the CKD-EP I equation. As with all creatinine based estimates of kidney function, eGFR values calculated with the CKD-EPI equation are not accurate in patients wi th acute kidney failure, extremes of body mass or the acutely ill. [email or web address]://Insightly/[facility]ALOnkf eGFR 94 >=60 mL/min/1.73 m?? [facility] Comment: The eGFR was calculated using the CKD-EP I equation. As with all creatinine based estimates of kidney function, eGFR values calculated with the CKD-EPI equation are not accurate in patients wi th acute kidney failure, extremes of body mass or the acutely ill. [email or web address]://[email or web address]/[facility] BUFFALOnkf Specimen Anatomical Collection Method Collection Time Receive d Time (Source) Location / / Volume Laterality Blood specimen 12/02/2019 4:55 AM 020 5:02 (specimen) EDT AM EDT Resulting Agency Comment Spec In Lab Gretchen Yoon MD CHEMISTRY ORDERABLES Performing Organization Address City/State/ZIP [place] [address] (ABNORMAL) Hemogram (12/02/2019 4:55 AM EDT) Analysis Performed At Patho logist Time Signature WBC 9.3 4.0 - 9.5 [facility] x10(3)/[facility] LABORATORY RBC 3.71 (L) 4.58 - [place] OLIVIA 5.54 [facility] x10(6)/[facility] LABORATORY Hemoglobin 10.8 (L) 13.7 - [facility] 16.5 gm/dL [facility] Hematocrit 33.1 (L) 40.5 - [facility] 48.5 % [facility] MCV 89.2 82.9 - [facility] 93.1 [facility] LABORATORY MCH 29.1 27.5 - [facility] 32.1 pg [facility] MCHC 32.6 32.0 - [facility] 35.7 gm/dL [facility] Platelets 93 (L) 145 - 357 [facility] x10(3)/[facility] LABORATORY RDWSD 47.1 (H) 36.0 - [facility] 45.0 [facility] LABORATORY RDWCV 14.6 (H) 11.4 - [facility] 13.8 % [facility] LABORATORY MPV 11.7 7.6 - 12.9 [facility] LABORATORY nRBC % Auto 0.0 % [facility] nRBC Abs Auto 0.000 0.000 - [facility] 0.000 [facility] x10(3)/[facility] LABORATORY Specimen Anatomical Collection Method Collection Time Receive d Time (Source) Location / / Volume Laterality Blood specimen 12/02/2019 4:55 AM 020 5:02 (specimen) EDT AM EDT Resulting Agency Comment Spec In Lab Gretchen Yoon MD HEMATOLOGY ORDERABLES Performing Organization Address City/State/Z[place] [address] Transfuse 1 unit platelets, [...] For questions regarding this report, please contact [facility] number below. ? Electronically signed by: Angel Luis Barboza MD, [facility] ([phone]), at 12/01/2019 8:02 PM Narrative 12/01/2019 8:02 [...] For questions regarding this report, please contact [facility] number below. Electronically signed by: Angel Luis Barboza MD, [facility] ([phone]), at 12/01/2019 8:02 PM Gretchen Yoon MD IMG MRI ORDERABLES Prepare Platelets, Apheresis (12/01/2019 6:20 PM EDT) P athologist Signature Dispensed? Yes [facility] Specimen Anatomical Collection Method Collection Time Receive d Time (Source) Location / / Volume Laterality Blood specimen 12/01/2019 6:20 PM 020 6:18 (specimen) EDT PM EDT Gretchen Yoon MD BLOOD BANK ORDERABLES Performing Organization Address City/State/ZIP Code Phon e Number [place] [id number] LAB[address]ORY [address] Duplex for DVT, Arm, Unilat (12/01/2019 5:08 PM EDT) Component Value Ref Test Analysis Performed At Patholo gist Range Method Time Signature VB Text Department: Vascular Surgery Lab VASCUBASE Report Patient: [id number] (ANGEL LUIS SALINAS) CPT: 40795 ICD10: R60.0 Referring Physician: GRETCHEN YOON ?? [...] For questions regarding this report, please contact [facility] number below. ? Electronically signed by: Merari Collins [facility] ([phone]), at 12/01/2019 3:53 PM Narrative 12/01/2019 3:53 PM EDT EXAMINATION: CT HEAD WO CONTRAST (GENERIC) CLINICAL HISTORY: Headache, intracranial hemorrhage suspected Serial CT scan: please assess for propag ation of known ICH noted on prior Head CT/imaging. TECHNIQUE: CT head performed without intravenous co ntrast administration. COMPARISON: Head CT 11/30/2019. CT angiogram of the [place] 11/01. FINDINGS: Ventricles are normal in size. Basal cis terns are patent. Unchanged hyperdense 2.3 x 0.7 x 0.6 cm tubular hemorrhage projecting along the course of the left optic tract (axial se [facility] 2 image 16), consistent with intraparenchymal [...] Head CT 11/30/2019. CT angiogram of the [place] 11/01. FINDINGS: Ventricles are normal [...] Scan, Peripheral Blood (12/01/2019 12:51 PM EDT) [facility] Method Time Signature Plat Estimate Decreased [facility] RBC Morphology Normal [facility] Giant Less than 1 /HPF [facility] Platelets [facility] Specimen Anatomical Collection Method Collection Time Receive d Time (Source) Location / / Volume Laterality Blood specimen 12/01/2019 12:51 0 1:05 (specimen) PM EDT PM EDT Resulting Agency Comment Spec In Lab Riki Stevens MD HEMATOLOGY ORDERABLES Performing Organization Address City/State/ZIP [place] [address] (ABNORMAL) Differential, Automated (12/01/2019 12:51 PM EDT) [facility] Method Time Signature Neutrophils % 74.9 % [facility] Neutr Abs (ANC) 6.34 (H) 1.70 - [facility] 6.10 [facility] x10(3)/[facility] LABORATORY Lymphocytes % 11.4 % [facility] Lymphocytes Abs 1.0 0.9 - 3.2 [facility] x10(3)/[facility] LABORATORY Monocytes % 12.4 % [facility] Monocyte Abs 1.0 (H) 0.3 - 0.9 [facility] x10(3)/[facility] LABORATORY Eosinophils % 0.4 % [facility] Eosinophils Abs 0.0 0.0 - 0.4 [facility] x10(3)/[facility] LABORATORY Basophils % 0.4 % [facility] Basophils Abs 0.0 0.0 - 0.1 [facility] x10(3)/[facility] LABORATORY Immature Gran [...] Pita Gran Abs 0.04 0.00 - 0.04 x10(3)/[facility] LABORATORY Specimen Anatomical Collection Method Collection Time Receive d Time (Source) Location / / Volume Laterality Blood specimen 12/01/2019 12:51 0 1:05 (specimen) PM EDT PM EDT Resulting Agency Comment Spec In Lab Riki Stevens MD HEMATOLOGY ORDERABLES Performing Organization Address City/State/ZIP [place] [address] (ABNORMAL) Hemogram (12/01/2019 12:51 PM EDT) Analysis Performed At Patho logist Time Signature WBC 8.4 4.0 - 9.5 [facility] x10(3)/[facility] LABORATORY RBC 3.69 (L) 4.58 - [facility] 5.54 [facility] x10(6)/[facility] LABORATORY Hemoglobin 10.8 (L) 13.7 - [facility] 16.5 gm/dL [facility] Hematocrit 32.4 (L) 40.5 - [facility] 48.5 % [facility] MCV 87.8 82.9 - [facility] 93.1 [facility] LABORATORY MCH 29.3 27.5 - [facility] OLIVIA 32.1 pg [facility] MCHC 33.3 32.0 - [facility] 35.7 gm/dL [facility] Platelets 72 (L) 145 - 357 [facility] x10(3)/[facility] LABORATORY RDWSD 47.2 (H) 36.0 - [facility] 45.0 [facility] LAB[facility]ATORY RDWCV 14.6 (H) 11.4 - [facility] 13.8 % [facility] MPV 12.2 7.6 - 12.9 [facility] LABORATORY nRBC % Auto 0.0 % [facility] nRBC Abs Auto 0.000 0.000 - [facility] 0.000 [facility] x10(3)/[facility] LABORATORY Specimen Anatomical Collection Method Collection Time Receive d Time (Source) Location / / Volume Laterality Blood specimen 12/01/2019 12:51 0 1:05 (specimen) PM EDT PM EDT Resulting Agency Comment Spec In Lab Riki Stevens MD HEMATOLOGY ORDERABLES Performing Organization Address City/[facility]/ZIP Code Phon e Number [address] (ABNORMAL) Coox2 (12/01/2019 11:42 AM EDT) Analysis Performed At Patho logist Time Signature pO2 Coox 30 mmHg [facility] Hgb Blood Gas 11.6 (L) 13.7 - [facility] 16.5 gm/dL [facility] O2HB Coox 60.8 % [facility] COHB Coox 0.6 % [facility] Comment: Nonsmokers: 0.5-1.5% COHB Smokers: Variable, but usually less than 10% Toxic: 20-30% COHB Lethal: Greater than 60% COHB METHB Coox 0.6 <=1.5 % [facility]ORY Source Coox Mixed Venous [facility] Specimen Anatomical Collection Method Collection Time Receive d Time (Source) Location / / Volume Laterality Blood specimen 12/01/2019 11:42 0 (specimen) AM EDT 11:42 AM EDT Gretchen Yoon MD CHEMISTRY ORDERABLES Performing Organization Address City/State/ZIP [place] [address] Sedimentation rate (12/01/2019 3:55 AM EDT) P athologist Signature Sed Rate 25 3 - 46 [facility] mm/hr [facility] Comment: Effective June 11, [...] Winn MD HEMATOLOGY ORDERABLES Performing Organization Address City/[facility]/ZIP [place] [address] (ABNORMAL) CRP, acute inflammation (12/01/2019 3:55 AM EDT) P athologist Signature CRP 92.5 (H) <=4.9 mg/L [facility] Specimen Anatomical Collection Method Collection Time Receive d Time (Source) Location / / Volume Laterality Blood specimen Venous Draw / 12/01/2019 3:55 AM 2019 4:06 (specimen) Unknown EDT AM EDT Resulting Agency Comment Spec In Lab Rossy Winn MD CHEMISTRY ORDERABLES Performing Organization Address City/[facility]/ZIP [place] [address] ABORH Recheck Status (12/01/2019 3:55 AM EDT) [facility] Method Time Signature ABORH Recheck Order Placed [facility] LABORATORY ABORH Type Complete [facility] LABORATORY Specimen Anatomical Collection Method Collection Time Receive d Time (Source) Location / / Volume Laterality Blood specimen 12/01/2019 3:55 AM 020 4:15 (specimen) EDT AM EDT Resulting Agency Comment Spec In Lab Lewis Gee MD BLOOD BANK ORDERABLES Performing Organization Address City/[facility]/ZIP [place] [address] Antibody screen (12/01/2019 3:55 AM EDT) [facility] Method Time Signature Ab Screen Negative [facility] LABORATORY Expires at 12/04/2019 [facility] 3300 on: [facility] Specimen Anatomical Collection Method Collection Time Receive d Time (Source) Location / / Volume Laterality Blood specimen 12/01/2019 3:55 AM 020 4:15 (specimen) EDT AM EDT Resulting Agency Comment Spec In Lab Lewis Gee MD BLOOD BANK ORDERABLES Performing Organization Address City/State/ZIP [place] [address] ABO/Rh Typing (12/01/2019 3:55 AM EDT) athologist Signature ABORh Type AB Pos [facility] Specimen Anatomical Collection Method Collection Time Receive d Time (Source) Location / / Volume Laterality Blood specimen 12/01/2019 3:55 AM 020 4:15 (specimen) EDT AM EDT Resulting Agency Comment Spec In Lab Lewis Gee MD BLOOD BANK ORDERABLES Performing Organization Address City/[facility]/ZIP [place] [address] (ABNORMAL) Troponin (12/01/2019 3:55 AM EDT) athologist Signature Troponin-T 4.35 (H) 0.00 - [facility] 0.00 ng/mL [facility] Comment: result rechecked-slw The 99th percentile for Troponin T is le ss than 0.01 ng/mL, any detectable cTnT concentration using this assay should be considered elevated. According to the third universal definit ion of myocardial infarction the following criteria with a clinical prese ntation consistent with acute myocardial ischemia meets the diagnosis for a myocardial infarction ([place]). Detection of a rise and/or fall of [...] additional sample may be indicated. Reference: [place] Definition of Myocardial Infarction. Journal of the [place] [employer] 2012;60:1581-98 Specimen Anatomical Collection Method Collection Time Receive d Time (Source) Location / / Volume Laterality Blood specimen 12/01/2019 3:55 AM 020 4:00 (specimen) EDT AM EDT Resulting Agency Comment Spec In Lab Gretchen Yoon MD CHEMISTRY ORDERABLES Performing Organization Address City/[facility]/ZIP Code Phon e Number [address] Magnesium (12/01/2019 3:55 AM EDT) P athologist Signature Magnesium 0.96 0.69 - 1.07 [facility] mmol/L [facility] Specimen Anatomical Collection Method Collection Time Receive d Time (Source) Location / / Volume Laterality Blood specimen 12/01/2019 3:55 AM 020 4:00 (specimen) EDT AM EDT Resulting Agency Comment Spec In Lab Gretchen Yoon MD CHEMISTRY ORDERABLES Performing Organization Address City/State/ZIP [place] [address] (ABNORMAL) BMP w/fasting Glucose (12/01/2019 3:55 AM EDT) P athologist Signature Glucose 148 (H) 65 - 99 [facility] Fasting mg/dL [facility] Comment: ?Fasting* Glucose Interpretive [...] of Diabetes Mellitus, Position Statement from the [place] [employer]. ??Diabete s Care, Volume 33, Supplement 1, Jul 2009 BUN 11 10 - 20 mg/dL [facility] Creatinine 0.96 0.80 - 1.50 [...] estions. Chloride 105 98 - 107 mmol/L [facility] CO2 17 (L) 22 - 31 mmol/L [facility] Anion Gap 10 5 - 15 mmol/L [facility] Calcium 7.6 (L) 8.5 - 10.5 mg/dL [facility] Estimated GFR 78 >=60 mL/min/1.73 m?? [facility] Comment: The eGFR was calculated using the CKD-EP I equation. As with all creatinine based estimates of kidney function, eGFR values calculated with the CKD-EPI equation are not accurate in patients wi th acute kidney failure, extremes of body mass or the acutely ill. [email or web address] eGFR 91 >=60 mL/min/1.73 m?? [facility] Comment: The eGFR was calculated using the CKD-EP I equation. As with all creatinine based estimates of kidney function, eGFR values calculated with the CKD-EPI equation are not accurate in patients wi th acute kidney failure, extremes of body mass or the acutely ill. [email or web address]/DHnkf Specimen Anatomical Collection Method Collection Time Receive d Time (Source) Location / / Volume Laterality Blood specimen 12/01/2019 3:55 AM 020 4:00 (specimen) EDT AM EDT Resulting Agency Comment Spec In Lab Gretchen Yoon MD CHEMISTRY ORDERABLES Performing Organization Address City/State/ZIP Code Phon [place] [address] (ABNORMAL) Hemogram (12/01/2019 3:55 AM EDT) Analysis [facility]formed At [facility] Time Signature WBC 11.0 (H) 4.0 - 9.5 [facility] x10(3)/[facility] LABORATORY RBC 3.46 (L) 4.58 - [facility] 5.54 [facility] x10(6)/[facility] LABORATORY Hemoglobin 10.2 (L) 13.7 - [facility] 16.5 gm/dL [facility] Hematocrit 31.2 (L) 40.5 - [facility] 48.5 % [facility] MCV 90.2 82.9 - [facility] 93.1 [facility] LABORATORY MCH 29.5 27.5 - [facility] 32.1 pg [facility] MCHC 32.7 32.0 - [facility] 35.7 gm/dL [facility] Platelets 98 (L) 145 - 357 [facility] x10(3)/[facility] LABORATORY RDWSD 47.9 (H) 36.0 - [facility] 45.0 [facility] LABORATORY RDWCV 14.6 (H) 11.4 - [facility] 13.8 % [facility] MPV 12.3 7.6 - 12.9 [facility] LABORATORY nRBC % Auto 0.0 % [facility] nRBC Abs Auto 0.000 0.000 - [facility] 0.000 [facility] x10(3)/[facility] LABORATORY Specimen Anatomical Collection Method Collection Time Receive d Time (Source) Location / / Volume Laterality Blood specimen 12/01/2019 3:55 AM 020 4:00 (specimen) EDT AM EDT Resulting Agency Comment Spec In Lab Gretchen Yoon MD HEMATOLOGY ORDERABLES Performing Organization Address City/State/ZIP [place] [address] (ABNORMAL) BLOOD GAS 2 ARTERIAL (11/30/2019 10:39 PM EDT) Analysis Performed At [facility] Time Signature pH Art 7.45 7.35 - [facility] 7.45 [facility] pCO2 Art 23 (L) 35 - 45 [facility] LABORATORY pO2 Art 76 (L) 85 - 104 [facility] LABORATORY HCO3 Art 15.3 (L) 20.0 - [facility] 26.0 [facility] mmol/L [facility] BE Art -8.7 (L) -3.0 - 3.0 [facility] mmol/L [facility] Hgb Blood Gas 11.7 (L) 13.7 - [facility] 16.5 gm/dL [facility] O2HB Art 94.2 94.0 - [facility] 97.0 % [facility] COHB Art 0.5 % [facility] Comment: Nonsmokers: 0.5-1.5% COHB Smokers: Variable, but usually less than 10% Toxic: 20-30% COHB Lethal: Greater than 60% COHB METHB Art 0.6 <=1.5 % [facility]ORATORY Na Whole Blood 133 (L) 135 - 145 mmol/L [facility] K Whole Blood 3.8 3.5 - 5.0 mmol/L [facility] Comment: Please note: Patients with WBC >100,000 may have falsely elevated Potassium levels. Contact the Clinical Chemistry L aboratory if there are any questions. ICa Whole Blood 1.10 (L) 1.15 - 1.33 mmol/L [facility] Comment: Note: ??Total bilirubin higher than 20 m g/dL may lead to falsely low ionized calcium. CL Whole Blood 109 (H) 98 - 107 mmol/L [facility] Gluc Whole Bld 120 65 - 199 mg/dL [facility] Comment: Diabetes: >=200 mg/dL plus symp toms. Lactate WB 0.8 0.5 - 2.2 mmol/L [facility] FIO2 Art 100 % [facility]ORATORY PF Ratio Art [address] [facility] LAB[facility] Specimen Anatomical Collection Method Collection Time Receive d Time (Source) Location / / Volume Laterality Blood specimen 11/30/2019 10:39 0 (specimen) PM EDT 10:39 PM EDT Gretchen Yoon MD CHEMISTRY ORDERABLES Performing Organization Address City/[facility]/ZIP [place] [address] EKG 12 Lead (11/30/2019 [...] (Bezet) Calculated P 12 degrees [facility] [place] Calculated R 19 degrees [facility] [place] Calculated T -47 degrees [facility] [place] INTERPRETATION Sinus rhythm with Premature supraventricular complexes [...] Yoon MD ECG ORDERABLES Performing Organization Address City/[facility]/ZIP Code Phon e Number MUSE SYSTEM (ABNORMAL) Urinalysis Microscopic Exam (11/30/2019 8:40 PM EDT) P athologist Signature RBC UA 27 (H) 0 - 3 /HPF [facility] WBC UA 4 (H) 0 - 3 /HPF [facility] Hyaline Cast 3 (H) 0 - 2 /LPF [facility] Specimen (Source) Anatomical Collection Method Collection Time Re ceived Time Location / / Volume Laterality Urine specimen 11/30/2019 8:40 11/30/2019 obtained via PM EDT 10:51 PM EDT indwelling urinary catheter (specimen) Resulting Agency Comment Spec In Lab Rossy Winn MD URINE ORDERABLES Performing Organization Address City/[facility]/ZIP [place] [address] (ABNORMAL) Urinalysis with reflex Culture (11/30/2019 8:40 PM EDT) Patholo gist Method Time Signature Glucose UA Negative Negative [facility] mg/dL [facility] Protein UA Negative Negative [facility] mg/dL [facility] Bilirubin UA Negative Negative [facility] mg/dL [facility] Comment: Clinical correlation required for positi ve Urine Bilirubin results as false positive may occur with some drugs and d rug related products. If a false positive is suspected a serum total bili morales should be considered if clinically indicated. Urobilinogen UA Normal Normal mg/dL [facility] pH UA 5.5 5.0 - 8.0 [facility]ORY Blood UA Moderate (A) Negative mg/dL [facility] Ketones UA 40 (A) Negative mg/dL [facility] Nitrite UA Negative Negative [facility] Leukocytes UA Trace (A) Negative [facility] LABORATORY Appearance UA Clear Clear [facility] Spec [place] UA 1.026 1.006 - 1.030 [facility] Color UA Yellow Yellow [facility]ORATORY Culture Reflexed No [facility] Specimen (Source) Anatomical Collection Method Collection Time Re ceived Time Location / / Volume Laterality Urine specimen 11/30/2019 8:40 11/30/2019 obtained via PM EDT 10:51 PM EDT indwelling urinary catheter (specimen) Resulting Agency Comment Spec In Lab Gretchen Yoon MD URINE ORDERABLES Performing Organization Address City/State/Z[place] [address] (ABNORMAL) pro-Brain Natriuretic Peptide (11/30/2019 8:30 PM EDT) P athologist Signature ProBNP 2,802 (H) <=125 [facility] pg/mL [facility] Specimen Anatomical Collection Method Collection Time Receive d Time (Source) Location / / Volume Laterality Blood specimen Venous Draw / 11/30/2019 8:30 PM 2019 8:36 (specimen) Unknown EDT PM EDT Resulting Agency Comment Spec In Lab Rossy Winn MD CHEMISTRY ORDERABLES Performing Organization Address City/[facility]/[place] [address] (ABNORMAL) Troponin (11/30/2019 8:30 PM EDT) athologist Signature Troponin-T 5.04 (H) 0.00 - [place] 0.00 ng/mL [facility] Comment: The 99th percentile for Troponin T is le ss than 0.01 ng/mL, any detectable cTnT concentration using this assay should be considered elevated. According to the third universal definit ion of myocardial infarction the following criteria with a clinical prese ntation consistent with acute myocardial ischemia meets the diagnosis for a myocardial infarction ([place]). Detection of a rise and/or fall of [...] additional sample may be indicated. Reference: Third [place] Definition of Myocardial Infarction. Journal of the [place] [employer] 2012;60:1581-98 Specimen Anatomical Collection Method Collection Time Receive d Time (Source) Location / / Volume Laterality Blood specimen Venous Draw / 11/30/2019 8:30 PM 2019 8:36 (specimen) Unknown EDT PM EDT Resulting Agency Comment Spec In Lab Rossy Winn MD CHEMISTRY ORDERABLES Performing Organization Address City/[facility]/ZIP [place] [address] Magnesium (11/30/2019 8:30 PM EDT) athologist Signature Magnesium 0.79 0.69 - 1.07 [place] mmol/L [facility] Specimen Anatomical Collection Method Collection Time Receive d Time (Source) Location / / Volume Laterality Blood specimen 11/30/2019 8:30 PM 020 8:35 (specimen) EDT PM EDT Resulting Agency Comment Spec In Lab Gretchen Yoon MD CHEMISTRY ORDERABLES Performing Organization Address City/State/ZIP [place] [address] (ABNORMAL) Basic Metabolic Panel (non-fasting) (11/30/2019 8:30 PM EDT) athologist Signature Glucose Lvl 132 65 - 199 [facility] mg/dL [facility] Comment: Diabetes: >=200 mg/dL plus symp toms BUN 12 10 - 20 mg/dL [facility] Creatinine 0.94 0.80 - 1.50 [...] Chloride 108 (H) 98 - 107 mmol/L [facility] CO2 17 (L) 22 - 31 mmol/L [facility] Anion Gap 11 5 - 15 mmol/L [facility] Calcium 7.9 (L) 8.5 - 10.5 mg/dL [facility] Estimated GFR 80 >=60 mL/min/1.73 m?? [facility] Comment: The eGFR was calculated using the CKD-EP I equation. As with all creatinine based estimates of kidney function, eGFR values calculated with the CKD-EPI equation are not accurate in patients wi th acute kidney failure, extremes of body mass or the acutely ill. http://Insightly/DHnkf eGFR 93 >=60 mL/min/1.73 m?? [facility] Comment: The eGFR was calculated using the CKD-EP I equation. As with all creatinine based estimates of kidney function, eGFR values calculated with the CKD-EPI equation are not accurate in patients wi th acute kidney failure, extremes of body mass or the acutely ill. [email or web address] Specimen Anatomical Collection Method Collection Time Receive d Time (Source) Location / / Volume Laterality Blood specimen 11/30/2019 8:30 PM 020 8:35 (specimen) EDT PM EDT Resulting Agency Comment Spec In Lab Gretchen Yoon MD CHEMISTRY ORDERABLES Performing Organization Address City/[facility] [place] [address] Blood culture (11/30/2019 8:30 PM EDT) Patholo gist Method Time Signature Blood Culture No growth [place] at 5 days. [facility] Specimen Anatomical Collection Method Collection Time Receive d Time (Source) Location / / Volume Laterality Blood specimen 11/30/2019 8:30 PM 020 9:40 (specimen) EDT PM EDT Comment: L HAND Resulting Agency Comment Spec In Lab Gretchen Yoon MD MICROBIOLOGY - BLOOD ORDERAB LES Performing Organization Address City/[facility]/ZIP [place] [address] Blood culture (11/30/2019 8:30 PM EDT) Patholo gist Method Time Signature Blood Culture No growth [place] at 5 days. [facility] Specimen Anatomical Collection Method Collection Time Receive d Time (Source) Location / / Volume Laterality Blood specimen 11/30/2019 8:30 PM 020 9:40 (specimen) EDT PM EDT Comment: R HAND Resulting Agency Comment Spec In Lab Gretchen Yoon MD MICROBIOLOGY - BLOOD ORDERAB LES Performing Organization Address [facility] [place] [address] XR Chest One View [...] Electronically signed by: ALBA Watson [facility] ([phone]), at 11/30/2019 8:32 PM Narrative 11/30/2019 8:32 [...] Time Signature pH Art 7.45 7.35 - [facility] 7.45 [facility] pCO2 Art 27 (L) 35 - 45 [facility] mmHg [facility] pO2 Art 68 (L) 85 - 104 [facility] LABORATORY HCO3 Art 18.2 (L) 20.0 - [facility] 26.0 [facility] mmol/[facility] BE Art -5.9 (L) -3.0 - 3.0 [facility] mmol/L [facility] Hgb Blood Gas 12.4 (L) 13.7 - [facility] 16.5 gm/dL [facility] O2HB Art 93.1 (L) 94.0 - [facility] 97.0 % [facility] COHB Art 0.8 % [facility] Comment: Nonsmokers: 0.5-1.5% COHB Smokers: Variable, but usually less than 10% Toxic: 20-30% COHB Lethal: Greater than 60% COHB METHB Art 0.4 <=1.5 % [facility] Na Whole Blood 133 (L) 135 - 145 mmol/L [facility] K Whole Blood 3.6 3.5 - 5.0 mmol/L [facility] Comment: Please note: Patients with WBC >100,000 may have falsely elevated Potassium levels. Contact the Clinical Chemistry L aboratory if there are any questions. ICa Whole Blood 1.13 (L) 1.15 - 1.33 mmol/L [facility] Comment: Note: ??Total bilirubin higher than 20 m g/dL may lead to falsely low ionized calcium. CL Whole Blood 108 (H) 98 - 107 mmol/L [facility] Gluc Whole Bld 121 65 - 199 mg/dL [facility] Comment: Diabetes: >=200 mg/dL plus symp toms. Lactate WB 1.2 0.5 - 2.2 mmol/L [facility] Flow Art 5.0 LPM [facility]OR[facility] Specimen Anatomical Collection Method Collection Time Receive d Time (Source) Location / / Volume Laterality Blood specimen 11/30/2019 8:09 PM 020 8:09 (specimen) EDT PM EDT Gretchen Yoon MD CHEMISTRY ORDERABLES Performing Organization Address City/State/ZIP [place] [address] Angiogram [place] [facility] [place] (11/30/2019 4:36 PM EDT) Anatomical [...] CT HEAD WO CONTRAST (GENERIC), CT ANGIOGRAM [place] [facility] [place] CLINICAL HISTORY: Headache, intracranial hemorrhage suspected F/U on known ICH - assessing for propaga tion TECHNIQUE: CT head performed without intravenous co ntrast administration. CT angiogram [place] of [place] 65 cc Omnipaque 350 administered [...] HEAD WO CONTRAST (GENERI C), CT ANGIOGRAM [place] CLINICAL HISTORY: Headache, intracranial hemorrhage suspected F/U on known ICH - assessing for propaga tion TECHNIQUE: CT head performed without intravenous co ntrast administration. CT angiogram [place] of [place] 65 cc Omnipaque 350 administered [...] CT HEAD WO CONTRAST (GENERIC), CT ANGIOGRAM [place] CLINICAL HISTORY: Headache, intracranial hemorrhage suspected F/U on known ICH - assessing for propaga tion TECHNIQUE: CT head performed without intravenous co ntrast administration. CT angiogram [place] of [place] 65 cc Omnipaque 350 administered [...] HEAD WO CONTRAST (GENERI C), CT ANGIOGRAM [place] CLINICAL HISTORY: Headache, intracranial hemorrhage suspected F/U on known ICH - assessing for propaga tion TECHNIQUE: CT head performed without intravenous co ntrast administration. CT angiogram [place] 65 cc Omnipaque 350 administered [...] by: Angel Luis Barboza MD, [facility] ([phone]), at 11/30/2019 5:04 PM Gretchen Yoon MD [...] 453 ms MUSE SYSTEM (Bezet) Calculated P Warren 52 degrees MUSE SYSTEM Calculated R Warren 5 degrees MUSE SYSTEM Calculated T Warren -60 degrees MUSE SYSTEM INTERPRETATION Sinus rhythm [...] Nilo ? (Age): 1945(74y) Med Rec#: ? [id number] ?Sex: ?M ? Site Loc: ? [facility] ?Ht / Wt: ??178(cm)/64(kg) Pt. Loc: ?CCU ? BSA: ?1.8 Study Date: ?? 11/30/2019 ?Pt. Type: Inpatient Tape: ? Referring: GILMER Reading: Tello Mejia ([id number]) Director Human Services: Friend, Lolita Diagnosis: *ST elevation (STEMI) myocardial [...] Vmax ?0.58 ? m/sec ? MV deceleration [id number] ? m sec ? MV A-wave Vmax [...] ? Mid-Inferior ?Akinetic ? Mid-Inferoseptal ?Normal ? [place]-Septal ? Normal ? [place]-Anterior ? Normal ? [place]-Lateral ?Normal ? [place]-Inferior ? Hypokinetic ? [place]-Tip ?Normal ? This report has been electronically sign ed by: _ Tello Mejia MD ? 11/30/2019 12: 45:27 Images reviewed and interpretation [facility] Cardiac Ultrasound Laboratory Procedure Note Tello Mejia MD - 11/30/2019Formatti ng of this note might be different from the original. Procedure: Transthoracic Echocardiogram Patient: RITA ACOSTA(Age): [birth year](74y) Med Rec#: [id number] Sex: M Site Loc: [facility] Ht / Wt: 178(cm)/64(kg) Pt. Loc: [facility] BSA: 1.8 Study Date: 11/30/2019 Pt. Type: Inpatie nt Tape: Referring: VANGIEJ Reading: Tello Mejia ([id number]) Director Human Services: Eve Lolita Diagnosis: *ST elevation (STEMI) myocardial [...] MV E-wave Vmax 0.58 m/sec MV deceleration [id number] msec MV A-wave Vmax 0.74 m/sec MV [...] Hypokinetic Mid-Posterolateral Hypokinetic Mid-Inferior Akinetic Mid-Inferoseptal Normal [place]-Septal Normal [place]-Anterior Normal [place]-Lateral Normal [place]-Inferior Hypokinetic [place]-Tip Normal This report has been electronically sign ed by: _ Tello Mejia MD 11/30/2019 12:45:27 Images reviewed and interpretation verif d [facility] Cardiac Ultrasound Laboratory Gretchen Yoon MD [...] by: Angel Luis Barboza MD, [facility] ([phone]), at 11/30/2019 12:04 PM Narrative 11/30/2019 12:04 [...] [facility] Magnesium 0.88 0.69 - 1.07 [facility] mmol/L [facility] Specimen Anatomical Collection Method Collection Time Receive d Time (Source) Location / / Volume Laterality Blood specimen Venous Draw / 11/30/2019 8:30 AM 2019 8:37 (specimen) Unknown EDT AM EDT Resulting Agency Comment Spec In Lab Rossy Winn MD CHEMISTRY ORDERABLES Performing Organization Address City/State/ZIP [place] [address] (ABNORMAL) CK (11/30/2019 8:30 AM EDT) athologist [facility] CK, Total 1,645 (H) 0 - 200 [facility] unit/L [facility] Specimen Anatomical Collection Method Collection Time Receive d Time (Source) Location / / Volume Laterality Blood specimen 11/30/2019 8:30 AM 020 8:32 (specimen) EDT AM EDT Resulting Agency Comment Spec In Lab Gretchen Yoon MD CHEMISTRY ORDERABLES Performing Organization Address City/[facility]/ZIP [facility] [place] [address] (ABNORMAL) Troponin (11/30/2019 8:30 AM EDT) athologist [facility] Troponin-T 8.04 (H) 0.00 - [place] 0.00 ng/mL [facility] Comment: result rechecked-rancho The 99th percentile for Troponin T is le ss than 0.01 ng/mL, any detectable cTnT concentration using this assay should be considered elevated. According to the third universal definit ion of myocardial infarction the following criteria with a clinical prese ntation consistent with acute myocardial ischemia meets the diagnosis for a myocardial infarction ([place]). Detection of a rise and/or fall of [...] additional sample may be indicated. Reference: [place] Definition of Myocardial Infarction. Journal of the [place] College [employer] 2012;60:1581-98 Specimen Anatomical Collection Method Collection Time Receive d Time (Source) Location / / Volume Laterality Blood specimen 11/30/2019 8:30 AM 020 8:32 (specimen) EDT AM EDT Resulting Agency Comment Spec In Lab Gretchen Yoon MD CHEMISTRY ORDERABLES Performing Organization Address City/State/ZIP [place] [address] EKG 12 Lead (11/30/2019 7:57 AM EDT) Component Value Ref Range Test Analysis Performed Pathologis t Method Time At Signature Ventricular rate 64 BPM MUSE SYSTEM Atrial Rate 64 BPM MUSE SYSTEM P-R Interval 132 ms MUSE SYSTEM QRS Duration 78 ms MUSE SYSTEM Q-T Interval 420 ms MUSE SYSTEM QTC Calculated 433 ms MUSE SYSTEM (Bezet) Calculated P Warren 28 degrees MUSE SYSTEM Calculated R Warren 7 degrees MUSE SYSTEM Calculated T Warren -33 degrees MUSE SYSTEM INTERPRETATION Sinus rhythm [...] Signature Glucose 147 (H) 65 - 99 [facility] Fasting mg/dL [facility] Comment: ?Fasting* Glucose Interpretive [...] of Diabetes Mellitus, Position Statement from the [place] [employer]. ??Diabete s Care, Volume 33, Supplement 1, Jul 2009 BUN 13 10 - 20 mg/dL [facility] Creatinine 0.90 0.80 - 1.50 [...] Chloride 108 (H) 98 - 107 mmol/L [facility] CO2 16 (L) 22 - 31 mmol/L [facility] Anion Gap 11 5 - 15 mmol/L [facility] Calcium 7.5 (L) 8.5 - 10.5 mg/dL [facility] Estimated GFR 84 >=60 mL/min/1.73 m?? [facility] Comment: The eGFR was calculated using the CKD-EP I equation. As with all creatinine based estimates of kidney function, eGFR values calculated with the CKD-EPI equation are not accurate in patients wi th acute kidney failure, extremes of body mass or the acutely ill. [email or web address]/[facility] eGFR 98 >=60 mL/min/1.73 m?? [facility] Comment: The eGFR was calculated using the CKD-EP I equation. As with all creatinine based estimates of kidney function, eGFR values calculated with the CKD-EPI equation are not accurate in patients wi th acute kidney failure, extremes of body mass or the acutely ill. http://Insightly/[facility]AL[facility]kf Specimen Anatomical Collection Method Collection Time Receive d Time (Source) Location / / Volume Laterality Blood specimen 11/30/2019 2:15 AM 020 2:29 (specimen) EDT AM EDT Resulting Agency Comment Spec In Lab Gretchen Yoon MD CHEMISTRY ORDERABLES Performing Organization Address City/State/ZIP Code Phon e Number [place] [id number] LAB[address]ORY Drive (ABNORMAL) Hemogram (11/30/2019 2:15 AM EDT) Analysis Performed At Patho logist Time Signature WBC 11.2 (H) 4.0 - 9.5 [facility] x10(3)/[facility] LABORATORY RBC 3.83 (L) 4.58 - [facility] 5.54 [facility] x10(6)/[facility] LABORATORY Hemoglobin 11.4 (L) 13.7 - [facility] 16.5 gm/dL [facility] Hematocrit 35.2 (L) 40.5 - [facility] 48.5 % [facility] MCV 91.9 82.9 - [facility] 93.1 fL [facility] MCH 29.8 27.5 - [facility] 32.1 [facility] LABORATORY MCHC 32.4 32.0 - [place] 35.7 gm/dL [facility] Platelets 122 (L) 145 - 357 [place] x10(3)/[facility] LABORATORY RDWSD 49.8 (H) 36.0 - [place] 45.0 [facility] LABORATORY RDWCV 14.8 (H) 11.4 - [place] 13.8 % [facility] MPV 12.1 7.6 - 12.9 [place] MONAE [facility] LABORATORY nRBC % Auto 0.0 % [facility] nRBC Abs Auto 0.000 0.000 - [place] 0.000 [facility] x10(3)/[facility] LABORATORY Specimen Anatomical Collection Method Collection Time Receive d Time (Source) Location / / Volume Laterality Blood specimen 11/30/2019 2:15 AM 020 2:29 (specimen) EDT AM EDT Resulting Agency Comment Spec In Lab Gretchen Yoon MD HEMATOLOGY ORDERABLES Performing Organization Address City/[facility]/ZIP Code Phon e Number [address] (ABNORMAL) CK (11/30/2019 2:15 AM EDT) [facility], Total 1,969 (H) 0 - 200 [facility] unit/L [facility] Specimen Anatomical Collection Method Collection Time Receive d Time (Source) Location / / Volume Laterality Blood specimen 11/30/2019 2:15 AM 020 2:29 (specimen) EDT AM EDT Resulting Agency Comment Spec In Lab Gretchen Yoon MD CHEMISTRY ORDERABLES Performing Organization Address City/State/ZIP [place] [address] (ABNORMAL) Troponin (11/30/2019 2:15 AM EDT) [facility] Trop[facility] 11.73 (H) 0.00 - [place] 0.00 ng/mL [facility] Comment: result rechecked-slw The 99th percentile for Troponin T is le ss than 0.01 ng/mL, any detectable cTnT concentration using this assay should be considered elevated. According to the third universal definit ion of myocardial infarction the following criteria with a clinical prese ntation consistent with acute myocardial ischemia meets the diagnosis for a myocardial infarction ([place]). Detection of a rise and/or fall of [...] additional sample may be indicated. Reference: Third [place] Definition of Myocardial Infarction. Journal of the [place] College of Cardiology 2012;60:1581-98 result rechecked- The 99th percentile for Troponin T is le ss than 0.01 ng/mL, any detectable cTnT concentration using this assay should be considered elevated. According to the third universal definit ion of myocardial infarction the following criteria with a clinical prese ntation consistent with acute myocardial ischemia meets the diagnosis for a myocardial infarction ([place]). Detection of a rise and/or fall of [...] additional sample may be indicated. Reference: [place] Definition of Myocardial Infarction. Journal of the [place] College of Cardiology 2012;60:1581-98 Corrected from 11.73 ng/ml [HI] on 11/29 3:11:51 EDT by Debi Hawley Specimen Anatomical Collection Method Collection Time Receive d Time (Source) Location / / Volume Laterality Blood specimen 11/30/2019 2:15 AM 020 2:29 (specimen) EDT AM EDT Resulting Agency Comment Spec In Lab Gretchen Yoon MD CHEMISTRY ORDERABLES Performing Organization Address City/[facility]/ZIP Code Phon e Number [address] LDL Cholesterol, Direct (11/30/2019 2:15 AM EDT) P athologist Signature LDL Chol 156 mg/dL [facility] LABORATORY Comment: Lowest Risk: <100 mg/dL Lower Risk: 100-129 mg/dL Borderline High Risk: 130-159 mg/dL High Risk: 160-189 mg/dL Very High Risk: >sh=648 mg/dL Specimen Anatomical Collection Method Collection Time Receive d Time (Source) Location / / Volume Laterality Blood specimen 11/30/2019 2:15 AM 020 2:29 (specimen) EDT AM EDT Resulting Agency Comment Spec In Lab Gretchen Yoon MD CHEMISTRY ORDERABLES Performing Organization Address City/[facility]/ZIP Code Phon e Number [address] (ABNORMAL) Hemoglobin A1c (11/30/2019 [...] Mellitus, Diabetes Care 2013; 36: Suppl. 1, O11-27 Est Avg Gluc See note mg/dL [facility] LABOR[facility]ORY Comment: Estimated Average Glucose not [...] with hemoglobinopathies. Additional resources are available on [facility] ADA website. Kiko CARBAJAL, Jenn J, Silas R, et al. ??Tr anslating the A1C assay into estimated average glucose values. ??Diabetes Care 2008:31(8):6188-8247. Specimen Anatomical Collection Method Collection Time Receive d Time (Source) Location / / Volume Laterality Blood specimen 11/30/2019 2:15 AM 020 2:29 (specimen) EDT AM EDT Resulting Agency Comment Spec In Lab Gretchen Yoon MD CHEMISTRY ORDERABLES Performing Organization Address City/State/ZIP [place] [address] Lipid Panel (Reflex Direct LDL) (11/30/2019 2:15 AM EDT) athologist Signature Chol, Total 195 mg/dL [facility] Comment: Lower Risk: <200 mg/dL Average Risk: 200-239 mg/dL Higher Risk: >rq=574 mg/dL Triglycerides 93 mg/dL [facility] Comment: Average Risk/Lower Risk: <150 mg/dL Borderline High Risk: 150-199 mg/dL High Risk: 200-499 mg/dL Very High Risk: >ti=003 mg/dL HDL 32 mg/dL [facility] LABORATORY Comment: Males: ?? Higher Risk: <40 mg/dL Females: ?? HIgher Risk: <50 mg/dL LDL Cholesterol 144 mg/dL [facility] Comment: Lowest Risk: <100 mg/dL Lower Risk: 100-129 mg/dL Borderline High Risk: 130-159 mg/dL High Risk: 160-189 mg/dL Very High Risk: >nb=867 mg/dL Chol/HDL Ratio 6.1 ratio [facility] Lipid Interpretation See Note [facility] LABOR[facility]ORY Comment: Lipid management should be guided by a p atient? s ASCVD risk, goals and preferences. ACC/AHA Guidelines recommend high intens ity statin if clinical ASCVD or LDL greater than or equal to 190 mg/dL. http://Mediamorph[employer]/IDA-SDI-Sqikdmfjt Adults aged 40-75 with LDL 70-189 mg/dL should have their 10 year ASCVD risk estimated with the ACC/AHA ASCVD risk es timator http://tools.acc.org/USEMD-Nqhp-Dqniswnp r/ Statin should be discussed if risk [...] Organization Address City/State/ZIP [place] [address] (ABNORMAL) CK (11/29/2019 6:35 PM EDT) athologist Signature CK, Total 2,780 (H) 0 - 200 [facility] unit/L [facility] Specimen Anatomical Collection Method Collection Time Receive d Time (Source) Location / / Volume Laterality Blood specimen 11/29/2019 6:35 PM 020 6:53 (specimen) EDT PM EDT Resulting Agency Comment Spec In Lab Gretchen Yoon MD CHEMISTRY ORDERABLES Performing Organization Address City/State/ZIP [place] [address] (ABNORMAL) Troponin (11/29/2019 6:35 PM EDT) athologist Signature Troponin-T 17.60 (H) 0.00 - [facility] 0.00 ng/mL [facility] Comment: result rechecked-az The 99th percentile for Troponin T is le ss than 0.01 ng/mL, any detectable cTnT concentration using this assay should be considered elevated. According to the third universal definit ion of myocardial infarction the following criteria with a clinical prese ntation consistent with acute myocardial ischemia meets the diagnosis for a myocardial infarction ([place]). Detection of a rise and/or fall of [...] additional sample may be indicated. Reference: [place] Definition of Myocardial Infarction. Journal of the [place] College of Cardiology 2012;60:1581-98 Specimen Anatomical Collection Method Collection Time Receive d Time (Source) Location / / Volume Laterality Blood specimen 11/29/2019 6:35 PM 020 6:53 (specimen) EDT PM EDT Resulting Agency Comment Spec In Lab Gretchen Yoon MD CHEMISTRY ORDERABLES Performing Organization Address City/State/Z[place] [address] EKG 12 Lead (11/29/2019 3:58 PM EDT) [facility] gist Method Time Signature Ventricular rate 73 BPM MUSE SYSTEM Atrial Rate 73 BPM MUSE SYSTEM P-R Interval 152 ms MUSE SYSTEM QRS Duration 84 ms MUSE SYSTEM Q-T Interval 404 ms MUSE SYSTEM QTC Calculated 445 ms MUSE SYSTEM (Bezet) Calculated P Warren 50 degrees MUSE SYSTEM Calculated R Warren -4 degrees MUSE SYSTEM Calculated T Warren 19 degrees MUSE SYSTEM INTERPRETATION Sinus rhythm [...] Electronically signed by: Devin Solis [facility] ([phone]), at 11/29/2019 5:06 PM --------ORIGINAL REPORT -------- EXAMINATION: XR CHEST ONE VIEW CLINICAL HISTORY: stemi (as entered by o [facility] provider in the order requisition) TECHNIQUE: [...] lung apex is excluded from the imaged [id number]. IMPRESSION: 1. ??New right internal jugular pulmonar [...] Electronically signed by: Devin Solis [facility] ([phone]), at 11/29/2019 4:36 PM Impressions 11/29/2019 4:36 [...] Electronically signed by: Devin Solis [facility] ([phone]), at 11/29/2019 4:36 PM Narrative 11/29/2019 4:36 [...] lung apex is excluded from the imaged [id number]. Procedure Note Estefani Harris MD - 11/29/2019Formattin [...] lung apex is excluded from the imaged [id number]. IMPRESSION 1. New right internal jugular pulmonary [...] number below. Electronically signed by: Devin Solis [facility] ([phone]), at 11/29/2019 4:36 PM Juventino Concepcion MD IMG DX ORDERABLES (ABNORMAL) Differential, Automated (11/29/2019 2:32 PM EDT) [facility] Method Time Signature Neutrophils % 83.8 % [facility] Neutr Abs (ANC) 12.12 (H) 1.70 - [facility] 6.10 [facility] x10(3)/[facility] LABORATORY Lymphocytes % 9.1 % [facility] Lymphocytes Abs 1.3 0.9 - 3.2 [facility] x10(3)/[facility] LABORATORY Monocytes % 6.2 % [facility] Monocyte Abs 0.9 0.3 - 0.9 [facility] x10(3)/[facility] LABORATORY Eosinophils % 0.0 % [facility] Eosinophils Abs 0.0 0.0 - 0.4 [facility] x10(3)/[facility] LABORATORY Basophils % 0.3 % [facility] Basophils Abs 0.0 0.0 - 0.1 [facility] x10(3)/[facility] LABORATORY Immature Gran % 0.60 % [facility] Comment: Immature granulocytes(IG's)percentage an d absolute count will include metamyelocytes, myelocytes, and promyelo cytes. Blood smears from CBCs yielding IG's will be scanned manually for concor dance. If this scan disagrees with the automated IG or if promyelocytes are not ed, a manual differential will be performed. Pita Gran Abs 0.08 (H) 0.00 - 0.04 x10(3)/[facility] LABORATORY Specimen Anatomical Collection Method Collection Time Receive d Time (Source) Location / / Volume Laterality Blood specimen 11/29/2019 2:32 PM 020 2:55 (specimen) EDT PM EDT Resulting Agency Comment Spec In Lab Darrell Glasgow MD HEMATOLOGY ORDERABLES Performing Organization Address City/State/Z[place] [address] (ABNORMAL) Hemogram (11/29/2019 2:32 PM EDT) Analysis Performed At Patho logist Time Signature WBC 14.5 (H) 4.0 - 9.5 [facility] x10(3)/[facility] LABORATORY RBC 4.53 (L) 4.58 - [facility] 5.54 [facility] x10(6)/[facility] LABORATORY Hemoglobin 13.1 (L) 13.7 - [facility] 16.5 gm/dL [facility] Hematocrit 40.8 40.5 - [facility] 48.5 % [facility] MCV 90.1 82.9 - [facility] 93.1 [facility] LABORATORY MCH 28.9 27.5 - [facility] 32.1 pg [facility] MCHC 32.1 32.0 - [facility] 35.7 gm/dL [facility] Platelets 184 145 - 357 [facility] x10(3)/[facility] LABORATORY RDWSD 47.8 (H) 36.0 - [facility] OLIVIA 45.0 [facility] LABORATORY RDWCV 14.5 (H) 11.4 - [facility] OLIVIA 13.8 % [facility] LABORATORY MPV 11.9 7.6 - 12.9 [facility] nRBC % Auto 0.0 % [facility]OR[facility] nRBC Abs Auto 0.000 0.000 - [place] 0.000 [facility] x10(3)/[facility] LABORATORY Specimen Anatomical Collection Method Collection Time Receive d Time (Source) Location / / Volume Laterality Blood specimen 11/29/2019 2:32 PM 020 2:55 (specimen) EDT PM EDT Resulting Agency Comment Spec In Lab Darrell Glasgow MD HEMATOLOGY ORDERABLES Performing Organization Address City/State/ZIP Code Phon e Number [address] (ABNORMAL) CK (11/29/2019 2:32 PM EDT) athologist Signature CK, Total 3,282 (H) 0 - 200 [facility] unit/L [facility] LABORATORY Specimen Anatomical Collection Method Collection Time Receive d Time (Source) Location / / Volume Laterality Blood specimen 11/29/2019 2:32 PM 020 2:32 (specimen) EDT PM EDT Resulting Agency Comment Spec In Lab Gretchen Yoon MD CHEMISTRY ORDERABLES Performing Organization Address City/[facility] [place] [address] (ABNORMAL) Troponin (11/29/2019 2:32 PM EDT) athologist Signature Troponin-T 20.33 (H) 0.00 - MELINA OLIVIA 0.00 ng/mL [facility] LABORATORY Comment: The 99th percentile for Troponin T is le ss than 0.01 ng/mL, any detectable cTnT concentration using this assay should be considered elevated. According to the third universal definit ion of myocardial infarction the following criteria with a clinical prese ntation consistent with acute myocardial ischemia meets the diagnosis for a myocardial infarction ([place]). Detection of a rise and/or fall of [...] additional sample may be indicated. Reference: Third [place] Definition of Myocardial Infarction. Journal of the [place] College of [employer]iology 2012;60:1581-98 Specimen Anatomical Collection Method Collection Time Receive d Time (Source) Location / / Volume Laterality Blood specimen 11/29/2019 2:32 PM 020 2:32 (specimen) EDT PM EDT Resulting Agency Comment Spec In Lab Gretchen Yoon MD CHEMISTRY ORDERABLES Performing Organization Address [facility] [place] [address] (ABNORMAL) APTT (11/29/2019 2:32 PM EDT) P athologist Signature PTT 114 25 - 37 [facility] (Critical) [facility] LABORATORY Comment: Critical Result called by [...] Yoon MD HEMATOLOGY ORDERABLES Performing Organization Address [facility] [place] [address] (ABNORMAL) Prothrombin Time (11/29/2019 2:32 PM EDT) P athologist Signature PT 13.5 (H) 9.4 - 12.5 [facility] LABORATORY INR 1.2 [facility] LABORATORY Comment: An INR <2.0 indicates [...] Organization Address City/State/ZIP [place] [address] (ABNORMAL) Hepatic Function Panel (11/29/2019 2:32 PM EDT) P athologist Signature Total Protein 6.3 6.1 - 8.0 [facility] gm[facility]dL [facility] LAB[facility] Albumin 3.6 3.2 - 5.2 [facility] gm/dL [facility] LABOR[facility] AST 257 (H) 0 - 39 [facility]L [facility] LAB[facility]ORY ALT 50 0 - 55 [facility]L [facility] LAB[facility]ORY Alk Phos 84 40 - 130 [facility] unit/L [facility] LAB[facility] Total 0.3 0.2 - 1.3 [facility] Bilirubin mg/dL [facility] LABORATORY Bili, Direct 0.1 0.0 - 0.3 [facility] OLIVIA mg/dL [facility] LABORATORY Specimen Anatomical Collection Method Collection Time Receive d Time (Source) Location / / Volume Laterality Blood specimen 11/29/2019 2:32 PM 020 2:32 (specimen) EDT PM EDT Resulting Agency Comment Spec In Lab Gretchen Yoon MD CHEMISTRY ORDERABLES Performing Organization Address City/[facility]/ZIP [place] [address] (ABNORMAL) pro-Brain Natriuretic Peptide (11/29/2019 2:32 PM EDT) P athologist Signature ProBNP 272 (H) <=125 pg/mL [facility] LABORATORY Specimen Anatomical Collection Method Collection Time Receive d Time (Source) Location / / Volume Laterality Blood specimen 11/29/2019 2:32 PM 020 2:32 (specimen) EDT PM EDT Resulting Agency Comment Spec In Lab Gretchen Yoon MD CHEMISTRY ORDERABLES Performing Organization Address City/[facility]/ZIP Code Phon e Number MELINA OLIVIA[address] Magnesium (11/29/2019 2:32 PM EDT) athologist Signature Magnesium 0.76 0.69 - 1.07 [facility] mmol/L [facility] LABORATORY Specimen Anatomical Collection Method Collection Time Receive d Time (Source) Location / / Volume Laterality Blood specimen 11/29/2019 2:32 PM 020 2:32 (specimen) EDT PM EDT Resulting Agency Comment Spec In Lab Gretchen Yoon MD CHEMISTRY ORDERABLES Performing Organization Address City/State/ZIP Code Phon e Number [address] (ABNORMAL) Basic Metabolic Panel (non-fasting) (11/29/2019 2:32 PM EDT) athologist Signature Glucose Lvl 149 65 - 199 [facility] mg/dL [facility] LABORATORY Comment: Diabetes: >=200 mg/dL plus symp toms BUN 16 10 - 20 mg/dL [facility] LABORATORY Creatinine 0.94 0.80 - 1.50 [...] estions. Chloride 105 98 - 107 mmol/L [facility] LABOR[facility] CO2 15 (L) 22 - 31 mmol/L [facility]OR[facility] Anion Gap 15 5 - 15 mmol/L [facility] LABOR[facility]ORY Calcium 8.0 (L) 8.5 - 10.5 mg/dL [facility] LABORATORY Estimated GFR 80 >=60 mL/min/1.73 m?? [facility] LABORATORY Comment: The eGFR was calculated using the CKD-EP I equation. As with all creatinine based estimates of kidney function, eGFR values calculated with the CKD-EPI equation are not accurate in patients wi th acute kidney failure, extremes of body mass or the acutely ill. http://Insight[employer]/[facility] eGFR 93 >=60 mL/min/1.73 m?? [facility] LABORATORY Comment: The eGFR was calculated using the CKD-EP I equation. As with all creatinine based estimates of kidney function, eGFR values calculated with the CKD-EPI equation are not accurate in patients wi th acute kidney failure, extremes of body mass or the acutely ill. http://Insightly/[facility]AL[facility]kf Specimen Anatomical Collection Method Collection Time Receive d Time (Source) Location / / Volume Laterality Blood specimen 11/29/2019 2:32 PM 020 2:32 (specimen) EDT PM EDT Resulting Agency Comment Spec In Lab Gretchen Yoon MD CHEMISTRY ORDERABLES Performing Organization Address City/[facility] [place] [address] EKG 12 Lead (11/29/2019 11:38 AM EDT) [facility] gist Method Time Signature Ventricular rate 60 BPM MUSE SYSTEM Atrial Rate 60 BPM MUSE SYSTEM P-R Interval 140 ms MUSE SYSTEM QRS Duration 86 ms MUSE SYSTEM Q-T Interval 474 ms MUSE SYSTEM QTC Calculated 474 ms MUSE SYSTEM (Bezet) Calculated P Warren 48 degrees MUSE SYSTEM Calculated R Warren 14 degrees MUSE SYSTEM Calculated T Warren 58 degrees MUSE SYSTEM INTERPRETATION Normal sinus [...] Yoon MD ECG ORDERABLES Performing Organization Address City/[facility] Phon e Number MUSE SYSTEM CARDIAC CATHETERIZATION (11/29/2019 11:15 AM EDT) Anatomical Region Laterality Modality Other Specimen (Source) Anatomical Location Collection Method / Collectio n Time Received Time / Laterality Volume Narrative 11/30/2019 1:09 PM EDT ?[facility] ? Cardiac Cathete rization/Intervention Report ? Patient Name: Salinas, Angel Luis H. ? Procedure Date: 11/29/2019 ? A #: [id number] ? Primary Physician: Shaan, Gretchen N ? Case #: [id number] ? File Name: [id number] ? Catheterization Order Number: [id number] ? [facility] ? Final Report [place], [place] ? Patient Name: ? Angel Luis Salinas ? ID#: ?[id number] ? : ?1945 ? Procedure Date: ? [...] procedure was Emergent. 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 ?Recommended anti-platelet/anti- thrombotic regimen: ?Continue aspirin 81 mg daily fo r indefinitely. ?Continue clopidogrel 75 mg marco a y for 12 months then stop. ?These recommendations are made at the time of the intervention. Patient ?and provider preferences or a c hanging clinical situation may require ?modification of this regimen. C marvult [facility] Interventional Cardiology for ?questions. ? Conclusions: ?* [...] note might be different from the original. [facility] Cardiac Catheterization/Intervention Re port Patient Name: SalinasAngel Luis Procedure Date: 11/29/2019 A #: [id number] Primary Physician: Gretchen Yoon Case #: [id number] File Name: [id number] Catheterization Order Number: [id number] [facility] Final Report [place], [place] Patient Name: Angel Luis Salinas ID#: [id number] : 1945 Procedure Date: November 29, [...] was designated as ASA Class IV. The [facility] clinical frailty scale is 4: Vulnerable. Diagnostic Tests: Electrocardiography: EKG was assessed by ECG. EKG was Abnorm al. EKG showed ST Deviation >= 0.5 mm. Medications Prior to Procedure: Aspirin. Indications for Diagnostic Cath: The priority of the diagnostic procedur e was Emergent. 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 The [facility] indication for the procedure was S [...] this intervention was 10%. The final TI KS flow was 2. Distal 90% Thrombectomy and [...] this intervention was 10%. The final TI KS flow was 2. Vascular Access: Vascular Access [...] administered prior t o arrival in the concrete laborer. Recommended anti-platelet/anti-thrombot ic regimen: Continue aspirin 81 mg daily for indefi nitely. Continue clopidogrel 75 mg daily for 12 months then stop. These recommendations are made at the t loyda of the intervention. Patient and provider preferences or a changing clinical situation may require modification of this regimen. Consult D [facility] Interventional Cardiology for questions. Conclusions: * Two [...] Signature POC pH 7.33 (L) 7.35 - [facility] 7.45 [facility] LABORATORY POC PCO2 33 (L) 35 - 45 [facility] mmHg [facility] LABORATORY POC PO2 56 (L) 85 - 104 [facility] LABORATORY POC Base Excess -8.0 (L) -3.0 - 3.0 [facility] K mmol/L [facility] LABORATORY POC HCO3 17.4 (L) 20.0 - [facility] 26.0 [facility] mmol/[facility] LAB[facility] POC Sodium 137 135 - 145 [facility] mmol/L [facility] LABORATORY POC Potassium 3.6 3.5 - 5.0 [facility] mmol/L [facility] POC Ionized Ca 1.15 1.15 - [facility] 1.33 [facility] POC Hematocrit 37.0 (L) 40.0 - [facility] 51.0 % [facility] LABORAT[facility] POC Calc Hgb 12.6 (L) 13.7 - [facility] 17.5 gm/dL [facility] LABORATORY Comment: The calculation of hemoglobin f rom hematocrit assumes a normal MCHC. POC Bgas Loc CC LAB [facility] LABORATORY Specimen Anatomical Collection Method Collection Time Receive d Time (Source) Location / / Volume Laterality Blood specimen 11/29/2019 9:17 AM 020 7:35 (specimen) EDT AM EDT Gretchen Yoon MD CHEMISTRY ORDERABLES Performing Organization Address City/State/ZIP [place] [address] EKG 12 Lead (11/29/2019 9:01 AM EDT) Component Value Ref Range Test Analysis Performed Pathologis t Method Time At Signature Ventricular rate 80 BPM MUSE SYSTEM Atrial Rate 79 BPM MUSE SYSTEM QRS Duration 94 ms MUSE SYSTEM Q-T Interval 436 ms MUSE SYSTEM QTC Calculated 502 ms MUSE SYSTEM (Bezet) Calculated R Warren 54 degrees MUSE SYSTEM Calculated T Warren 80 degrees MUSE SYSTEM INTERPRETATION Normal sinus rhythm MUSE SYSTEM Inferior infarct , possibly acute Prolonged QT * ACUTE KS ?? Consider right ventricular involvement in acute [...] ONCE, 1 dose, 12/06/19 at 0515, Ad assistant front desk manager over 120 Minutes magnesium sulfate 2 g [...] Bentley RN) 0-8,000 Units, Intravenous, BOLUS PER [facility] PROTOCOL, Starting 12/06/19 at 0926, Until 12/08/19 [...] Oral, EVERY 4 HOURS PRN, Startin g [place] 11/30/19 at 2016, Until Sun12/08/19 at 1811, hypokalemia
Administer for serum potassium (mMol/L) of 3.9 - 4 See instructions for Potassium Protocol in online policies.
Routine Or potassium chloride ER (K-Dur/Klor-Con) tablet 40 mEqJump to med 40 mEq, Oral, EVERY 4 HOURS PRN, Startin g [place] 11/30/19 at 2016, Until Sun12/08/19 at 181, hypokalemia
Administer for serum potassium (mMol/L) of 3.6 - 3.8 See instructions for Potassium Protocol in online policies.
Routine documented in this encounter Care Teams Dot Net Architect Relationship Specialty Start Date End Date France Lam MD PCP - General 05/02/13 02/04/20 [address] [place] [address] documented as of this encounter
== END 2022-03-31 23:59 | disposition home or self-care (01) ==
LOC: CR 10:55
PROVIDERS: PCP Family Medicine; Visit Provider Internal Medicine Cardiovascular Disease
DX: R69 Illness, unspecified (principal)

== ENCOUNTER 2022-04-24 13:01 | Outpatient (REF) | payer MEDICARE, OTHER, SELFPAY ==
[2022-04-24 15:53] LABS: FREE T4 1.34 ng/dL (0.76-1.46); TSH 0.36 uIU/mL (0.36-3.74)
[2022-04-25 21:39] LABS: T3,Free 2.8 pg/mL (2.8-5.3)
== END 2022-04-24 13:02 | disposition home or self-care (01) ==
LOC: NCHCN 13:01
PROVIDERS: PCP Family Medicine; Visit Provider Family Medicine
DX: E05.90 Thyrotoxicosis, unspecified without thyrotoxic crisis or storm (principal)
CPT/HCPCS: 84439; 84443; 84481

== ENCOUNTER 2022-04-27 10:59 | Outpatient (RCR) | payer SELFPAY ==
[2022-04-01 00:20] VITALS: BP 113/57; PULSE 48
[2022-04-04 10:56] VITALS: BP 104/54; PULSE 49; O2SAT 95
[2022-04-06 10:54] VITALS: BP 98/58; PULSE 55; O2SAT 93
--- OUTSIDE RECORDS SUMMARY | 2022-04-06 10:56 | XMS_ITS | Clinical Summary ---
:1945 Author Organization [facility] [place] [address] Care Team Providers Name Role Phone Jovany Lott MD Primary Care Provider Allergies Active Allergy Reactions Severity Noted Date Comments Penicillins 05/13/2013 Pt doesn't gely mber reaction Dnwhwwq-Leh-Hlf Reductase 05/13/2013 St iff neck, upset stomach, [...] Address City/State/ZIP Code Phon e Number RAD [place], [place] from Last 3 Months Insurance Payer Benefit Plan / Subscriber ID Effective Dates Phone Addre ss Type Group MEDICARE MEDICARE PART [id number] 2019-Prese [phone] [place] [address] [place] [id number] 2018-Presen [employer] [place] [id number] Advance Directives Latest Code Status on File [...] capacity to make decision: Yes Care Teams Post Tensioning Ironworker Relationship Specialty Start Date End Date Jovany Lott MD PCP - General Family Medicine 02/05/20 [address] [place] [id number]
--- OUTSIDE RECORDS SUMMARY | 2022-04-06 10:56 | XMS_ITS | Encounter Summary ---
:1945 Author Organization [facility] Address [facility] [place] [address] Care Team Providers Name Role Phone France Lam MD Primary Care Provider Reason for Visit Reason Onset Date Comments TeleHealth 01/08/2020 Appt 01/09/20 Encounter Details Date Type Department Care Team Description 01/08/2020 Telephone Neurology at [place] Efrain Nicole PA TeleHealth (Appt [facility] 12/[address] ) [place] [address] NEUROLOGY [phone] [place], [place] [address] (Wo rk) Social History Tobacco [...] on filedocumented in this encounter Care Teams Business Law Professor Relationship Specialty Start Date End Date France Lam MD PCP - General 05/02/13 02/04/20 [address] [place] [address] documented as of this encounter
--- OUTSIDE RECORDS SUMMARY | 2022-04-06 10:56 | XMS_ITS | Encounter Summary ---
:1945 Author Organization [facility] [place] [address] Care Team Providers Name Role Phone France Lam MD Primary Care Provider Encounter Details Date Type Department Care Team Description 01/16/2020 Telephone [facility]ascular Surgery at [facility] Ryan Tran, [place] [address] Social History Tobacco Use Types Packs/Day [...] fidelina. Ryan Tran, MSN, RN-BC, NCTTP Tobacco Two Way Radio Installer [facility] Pager #[phone] documented in this encounter Plan of Treatment Not on filedocumented as of this encounter Visit Diagnoses Not on filedocumented in this encounter Care Teams Head Nurse Relationship Specialty Start Date End Date France Lam MD PCP - General 05/02/13 02/04/20 [address] [place] [address] documented as of this encounter
--- OUTSIDE RECORDS SUMMARY | 2022-04-06 10:56 | XMS_ITS | Encounter Summary ---
:1945 Author Organization [facility] [place] [address] Care Team Providers Name Role Phone Joavny Lott MD Primary Care Provider Encounter Details Date Type Department Care Team Description 10/05/2020 Notes Only Cardiology Merlin Sanchez MD [facility] [place] [address] CARDIOLOGY DEPT. [phone] [place], [place] [address] (Wo rk) Social History Tobacco [...] with WM FLX Merlin Sanchez MD [facility] Pager [phone] documented in this encounter Plan of Treatment Not on filedocumented as of this encounter Visit Diagnoses Not on filedocumented in this encounter Care Teams Pattern Painter Relationship Specialty Start Date End Date Jovany Lott MD PCP - General Family Medicine 8/6/20 [address] [place] [address] documented as of this encounter
--- OUTSIDE RECORDS SUMMARY | 2022-04-06 10:56 | XMS_ITS | Clinical Summary ---
:1945 Author Organization [facility] Address [address] [place] [address] Care Team Providers Name Role Phone Jennifer Gomez Bunny ELECTRONIC HEAT SEAL OPERATOR Primary Care Provider Encounters Date Type Specialty [...] Free 9.3 (H) 2.8 - 5.3 pg/mL [facility] LABORA TORY SERVICES Specimen Blood - Venous blood (substance) Performing Organization Address City/State/ZIP Code Phon e Number [facility] LABORATORY [address] [place] [address] SERVICES FECAL BACTERIAL PATHOGENS BY PCR (01/24/2022 14:50 EDT) Pathologist Sig nature Salmonella PCR Negative Negative [facility] LABORATORY SERVICES Shigella/Enteroinvasive Negative Negative [facility] HN LAB CAMPYLOBACTER PCR Negative Negative [facility] ER LABORATORY SERVICES Shiga Toxin PCR Negative Negative [facility] LABORATORY SERVICES Specimen Feces - Specimen from rectum (specimen) Performing Organization Address City/State/ZIP Code Phon e Number [facility] LABOR[facility] [address] [place] [address] SERVICES from Last 3 Months Insurance Payer Benefit Plan Subscriber ID Effective Phone Address Typ e / Group Dates [employer] OF [id number] 2018-Prese [id number] [employer] Com mercial [address] [place] [address] MEDICARE MEDICARE A/B [id number] 2011-Pres [address] Medicare GL [id number] [place] [address] (Work) Jovany Hi Personal/Family Self [address] (Home) [place] [address] (Work) Care Teams Senior Audit Manager Relationship Specialty Start Date End Date Jennifer Gomez, ELECTRONIC HEAT SEAL OPERATOR PCP - General 05/10/15 [facility] [address] [place], [place] [id number]
--- OUTSIDE RECORDS SUMMARY | 2022-04-06 10:56 | XMS_ITS | Encounter Summary ---
:1945 Author Organization [facility] [place] [address] Care Team Providers Name Role Phone Jovany Lott MD Primary Care Provider Reason for Visit Reason Onset Date Comments Follow-up 06/15/2020 Tobacco Treatment Encounter Details Date Type Department Care Team Description 06/15/2020 Telephone Vascular Surgery at Ryan Tran-melvin (Tobacco [facility] Sukumar, RN Treatment) [place] [address] Social History Tobacco Use Types Packs/Day [...] updated. Ryan Tran, MSN, RN-BC, NCTTP Tobacco Court Worker [facility] Pager #[phone] documented in this encounter Plan of Treatment Not on filedocumented as of this encounter Visit Diagnoses Not on filedocumented in this encounter Care Teams Materials And Corrosion Engineer Relationship Specialty Start Date End Date Jovany Lott MD PCP - General Family Medicine 02/05/20 [place] [address] documented as of this encounter
--- OUTSIDE RECORDS SUMMARY | 2022-04-06 10:56 | XMS_ITS | Encounter Summary ---
:1945 Author Organization [facility] [place] [address] Care Team Providers Name Role Phone Jovany Lott MD Primary Care Provider Reason for Visit Consultation (Routine) - Closed Specialty Diagnoses / Procedures Referred By Contact Refer red To Contact Cardiology Diagnoses ST elevation (STEMI) myocardial infarction of unspecified site Hyperlipidemia, unspecified PeriDawit muhammad [place] [address] [place] [address] [address] [place] D EPT [address] [place] [address] Fax: Referral ID Status Reason Start Date Expiration Date Visits V isits Requested Authorized [id number] Closed Consult, Test 02/10/2020 02/09/2021 [facility] PCP Updated and/or Approved Encounter Details Date Type Department Care Team Description 03/12/2020 TH Visit Cardiology at [facility] Melina Payan Fredrickson type IIa hyperli poproteinemia; (TeleHealth) [facility] Hyperglycemia; [facility] Elevated TSH; [facility] Hypothyroidism, acquired [phone] CARDIOLOGY DEPT [phone] [place], [place] [address] Social History Tobacco Use Types Packs/Day Years Used Date Former Smoker Cigars 0.5 Quit: 11/29/19 20 Smokeless Tobacco: Former User Comments: Quit chew tobacco years and y ears ago Sex Assigned at Date Recorded Not on file documented as of this encounter Progress Notes Melina Payan MD - 03/12/2020 1:00 PM EDT [facility]--Initial Consultation [...] Social History: 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 [...] medications for this visit. 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 He has multiple cardiovascular risk factors including peripheral artery disease, hyperlipidemia (elevated LDL, depressed HDL), a 63-llwm-zlhc history of smoking, and prediabetes. Jovany quit [...] but Jovany replied: I can't drive to [employer] every 2 weeks for that. I explained [...] hypothyroidism documented in this encounter Care Teams Family Program Specialist Relationship Specialty Start Date End Date Jovany Lott MD PCP - General Family Medicine 02/05/20 [place] [address] documented as of this encounter
--- OUTSIDE RECORDS SUMMARY | 2022-04-06 10:56 | XMS_ITS | Encounter Summary ---
:1945 Author Organization [facility] Address [address] [place] [address] Care Team Providers Name Role Phone Jennifer Gomez CLINICAL NUTRITION MANAGER Primary Care Provider Encounter Details Date Type Department Care Team Description 03/19/2019 Results Only [facility] Angel Luis Lott MD [phone] [address] [place], [place] [phone] (Wo rk) Social History Tobacco Use Types [...] (03/19/2019 16:47 EDT) Pathology SURGICAL PATHOLOGY REPORT [facility] MEDICAL Report: Reports generated via electronic interface conta in original data; CENTER LABORATORY however they are lacking the format of the original re port. SERVICES Caution should be taken when reading/interpreting unfo rmatted reports. Name: ? ANGEL LUIS HI ? Accession #: ? [id number] ? : ? 1945 (Age: 8 3) [...] Organization Address City/State/ZIP Code Phon e Number [facility] CENTER LABORATORY [address] [place] [address] SERVICES documented in this encounter Visit Diagnoses Not on filedocumented in this encounter Care Teams Assurance Manager Relationship Specialty Start Date End Date Jennifer Gomez NP PCP - General 05/10/15 [facility] [address] [place], [place] [id number] documented as of this encounter
--- OUTSIDE RECORDS SUMMARY | 2022-04-06 10:56 | XMS_ITS | Encounter Summary ---
:1945 Author Organization [facility] Address [address] [place] [address] Care Team Providers Name Role Phone Jennifer Gomez PHYSICAL SCIENCES INSTRUCTOR Primary Care Provider Encounter Details Date Type Department Care Team Description 09/07/2020 Lab Requisition [facility] Outr Resulting Lab, Pathology & Laboratory Provider [facility] [address], [place] [address] Social History Tobacco Use Types Packs/Day Years Used Date Never Assessed Sex Assigned at Date Recorded Not on file documented as of this encounter Plan of Treatment Not on filedocumented as of this encounter Procedures Procedure Name Priority Date/Time Associated Diagnosis Comme nts COVID-19 TEST [facility] Today 09/07/2020 9:45 EST LAB PCR COVID-19 TESTING Routine 09/07/2020 9:45 EST Resu lts for this procedure are i n the results section. documented in this encounter Results COVID-19 TEST [facility] LAB PCR (09/07/2020 9:45 EST) Specimen Swab - Entire nasopharynx (body structur e) Performing Organization Address City/State/ZIP Code Phon e Number [facility] [address] [place] [address] SERVICES COVID-19 TESTING (09/07/2020 9:45 EST) COVID-19 rt-PCR Negative Negative [facility] Result Comment: CENTER LABORATORY This [...] developed and its performance characteristics determined by [facility]. It has not been cleared or [...] defined by the FDA Performed on the Data Eliteo 7 Pro RT-PCR System. Performing Lab [facility] Lab [facility] SERVICES Specimen Swab Performing Organization Address City/State/ZIP Code Phon e Number [facility] [address] [place] [address] SERVICES documented in this encounter Visit Diagnoses Not on filedocumented in this encounter Care Teams Platform Inspector Relationship Specialty Start Date End Date Jennifer Gomez NP PCP - General 05/10/15 [facility] [address] [place], [place] [address] documented as of this encounter
--- OUTSIDE RECORDS SUMMARY | 2022-04-06 10:56 | XMS_ITS | Encounter Summary ---
:1945 Author Organization [facility] Address [address] [place] [address] Care Team Providers Name Role Phone Jovany Lott MD Primary Care Provider Encounter Details Date Type Department Care Team Description 03/10/2022 Ancillary Procedure Radiology Library at Jovany Lott MD [facility] [address] [facility] [address] [place] [address] [phone] Social History Tobacco Use Types Packs/Day Years [...] Organization Address City/State/ZIP Code Phon e Number [place], [place] documented in this encounter Visit Diagnoses Not on filedocumented in this encounter Care Teams Stitch Rubber Relationship Specialty Start Date End Date Jovany Lott MD PCP - General Family Medicine 02/05/20 [address] [place] [address] documented as of this encounter
--- OUTSIDE RECORDS SUMMARY | 2022-04-06 10:56 | XMS_ITS | Encounter Summary ---
:1945 Author Organization [facility] Address [address] [place] [address] Care Team Providers Name Role Phone Unavailable Primary Care Provider Unavailable Encounter Details Date Type Department Care Team Description 09/02/[address] [facility] - Otis Patel MD conversion [address] [facility] [address] [place] [address] [place] [address] (Wo rk) Social History Tobacco Use Types [...] ANGEL LUIS SALINAS ? Accession #: ? [id number] ? : ? 1945 (Age: 58) ??M [...] of the lesion is recommended. ?? (Dr. Mascorro)/MD2U Microscopic Description: ? The epidermis is hype [...] and cords of similar melanocytes that show shower maid maturation with descent. ??There is papillary dermal fibroplasia. ??(Dr. Mascorro)/MD2U Document reviewed and electronically signed by: Mai [...] entirely submitted in one cassette. ??(Dr Stephany Amador)/[facility] End of Report Specimen Performing Organization Address City/State/ZIP Code Phon e Number [facility] [address] [place] [address] SERVICES [facility] [address] [place] [address] documented in this encounter Visit Diagnoses Not on filedocumented in this encounter
--- OUTSIDE RECORDS SUMMARY | 2022-04-06 10:56 | XMS_ITS | Encounter Summary ---
:1945 Author Organization [facility] Address [address] [place] [address] Care Team Providers Name Role Phone France Lam MD Primary Care Provider Encounter Details Date Type Department Care Team Description 12/26/2019 TH Visit Cardiology at [facility] Merlin Sanchez V, Claudication from peripheral vascular disease, left ; (TeleHealth) [facility] Hyperlipidemia, unspecified hyperlipidem ia type; Drive [facility] Acute ST elevation myocardia l infarction (STEMI) of inferior wall; [place], [place] CENTER Acute systolic CHF (congestive heart reid lure), NYHA class 3, MILVIA/AHA stage C [address] [address] [phone] [place] [address] Social History Tobacco Use Types Packs/Day Years [...] best is to differ this conversation until care home OAC strategy has been set. Specifically, if this is being treated as a provoked dvt/pe, then would re-evaluate to coordinated with OAC discontinuation. I discussed the above findings with the patient and his both of whom appear to understand and is in agreement with the plan going forward. Merlin Sanchez M.D., F.A.C.C. peoplesoft financials consultant Pager 2020 >50% of the 15 minute [...] failure documented in this encounter Care Teams Acetylene Torch Burner Relationship Specialty Start Date End Date France Lam MD PCP - General 05/02/13 02/04/20 [address] [place] [address] documented as of this encounter
--- OUTSIDE RECORDS SUMMARY | 2022-04-06 10:56 | XMS_ITS | Encounter Summary ---
:1945 Author Organization [facility] [place] [address] Care Team Providers Name Role Phone France Lam MD Primary Care Provider Encounter Details Date Type Department Care Team Description 12/23/2019 TH Visit Neurosurgery [place] [facility] Alfreda Salas Intracranial (TeleHealth) [facility] C, PLATE FURNACE [place] [address] Center [phone] [place] [address] Social History Tobacco Use Types Packs/Day Years Used Date Current Every Day Smoker Cigars 0.5 Sex Assigned at Date Recorded Not on file documented as of this encounter Progress Notes Alfreda Salas C, PLATE FURNACE OPERATOR - 12/23/2019 1:30 PM EDT Images from [...] [address] up [address] at [facility], showing slight decrease in size and attenuation [...] 3-4 weeks which may be done at [facility] with follow up TOV [facility]. Head CT 12/18/19 Assessment and Plan Jovany [...] hemorrhage documented in this encounter Care Teams Care Consultant Relationship Specialty Start Date End Date France Lam MD PCP - General 05/02/13 02/04/20 [address] [place] [address] documented as of this encounter
--- OUTSIDE RECORDS SUMMARY | 2022-04-06 10:56 | XMS_ITS | Encounter Summary ---
:1945 Author Organization [facility] Address [address] [place] [address] Care Team Providers Name Role Phone Jennifer Gomez COMMERCIAL AIRLINE PILOT Primary Care Provider Encounter Details Date Type Department Care Team Description 12/22/[address] [facility] Outr Resulting Lab, Pathology & Laboratory Provider [facility] [address] [place], [place] [id number] Social History Tobacco Use Types Packs/Day Years Used Date Never Assessed Sex Assigned at Date Recorded Not on file documented as of this encounter Plan of Treatment Not on filedocumented as of this encounter Procedures Procedure Name Priority Date/Time Associated Diagnosis Comme nts COVID-19 TEST [facility] Today 12/22/2019 10:38 LAB PCR EDT COVID-19 TESTING Routine 12/22/2019 10:38 Results for this EDT procedure are i n the results section. documented in this encounter Results COVID-19 TEST [facility] LAB PCR (12/22/2019 10:38 EDT) Specimen Swab - Entire nasopharynx (body structur e) Performing Organization Address City/State/ZIP Code Phon e Number [facility] [address] [place] [address] SERVICES COVID-19 TESTING (12/22/2019 10:38 EDT) COVID-19 rt-PCR Negative Negative [facility] Result Comment: CENTER LABORATORY Negative results do not prec lude 2019-nCoV infection and should not be used as the sole basis for treatment or other patient management decisions. Negative results must be combined with clinical observa SERVICES tions, patient history, and epidemiological informatio n. This test was developed and its performance characteristics determined by [facility]. It has not been cleared [...] by the FDA Performed on the Applied WePay 7500 Fast. Performing Lab AB [address] [facility] Lab [facility] SERVICES Specimen Swab Performing Organization Address City/State/ZIP Code Phon e Number [facility] [address] [place] [address] SERVICES documented in this encounter Visit Diagnoses Not on filedocumented in this encounter Care Teams Digital Marketing Associate Relationship Specialty Start Date End Date Jennifer Gomez NP PCP - General 05/10/15 [facility] [address] [place], [place] [id number] documented as of this encounter
--- OUTSIDE RECORDS SUMMARY | 2022-04-06 10:56 | XMS_ITS | Encounter Summary ---
:1945 Author Organization [facility] Address [address] [place] [address] Care Team Providers Name Role Phone Jennifer Gomez MANAGER SWITCH Primary Care Provider Encounter Details Date Type Department Care Team Description 08/26/2021 Lab Requisition [facility] Najma Valladares for other Pathology & M, DO general examination Laboratory Medicine - [address] [place] [address] Social History Tobacco Use Types Packs/Day Years [...] 8:45 EST) Note to Patient The following [facility] pathology results have CENTER been interpreted by your LABORATORY pathologist and may be SERVICES available to you before your health provider has had the opportunity to review them. Please allow time for your provider to receive these results and explore management options, if applicable. Final Diagnosis A. RECTUM, POLYP, BIOPSY : [facility] - Polypoid submucosal anal glands. CENTER - Overlying rectal mucosa negative for dysplasia. LABORATORY - See comment. SERVICES Diagnosis Comment This rectal polyp shows a cantor bmucosal collection of anal duct glands causing a polypoid configuration. The morphology and the immunohistochemical profile are consistent with a benign (non-neoplastic) pro [facility] cess. Art Objects Repairer slides of this case were reviewed at the gastrointestinal/liver intradepartmental consultation conference. CENTER LABORATORY ANTIBODY(CLONE)(BLOCK):RESULT SERVICES CK7 (RN7, Leica) (A1): Strongly positive PAX-8 (MRQ-50, Acme) (A1): Negative NKX3.1 (Rabbit Polyclonal, Biocare) (A1): Negative GATA3 (L50-823, Acme) (A1): Negative NOTE: One or more of [...] characteristics have been de termined by [facility] and/or by the referring laboratory. The [...] laboratory testing. Attestation By the signature below, [facility] Elec tronically the attending physician CENTER sign ed by Odalis, certifies that they have LABORATORY Tami MD edna on 1) personally conducted SERVICES 2021 at 1309 a gross and/or microscopic examination of the described specimen(s), and/or personally interpreted the results of laboratory testing of the described specimen(s), and 2) personally rendered or confirmed the above diagnosis. Clinical History Flex sigmoidoscopy; [facility] diverticulosis, polyp CENTER LABORATORY SERVICES Gross Description A. [facility] Received in formalin mark d with proper patient identification (initials M, J) and rectal polyp is a marr-brown polyp, 0.6 x 0.5 x 0.4 cm. Bisected and entirely submitted in A1. CENTER LABORATORY ESTEFANY NICHOLS(ASCP) 08/26/2021 16:41 SE RVICES Performing Lab [facility] SERVICES Scanned Images [facility] SERVICES Specimen Tissue - Specimen from rectum (specimen) Performing Organization Address City/State/ZIP Code Phon e Number [facility] [address] [place] [address] SERVICES documented in this encounter Visit Diagnoses Diagnosis Encounter for other general examination documented in this encounter Care Teams Sole Trimmer Relationship Specialty Start Date End Date Jennifer Gomez NP PCP - General 05/10/15 [facility] [address] [place] [address] documented as of this encounter
--- OUTSIDE RECORDS SUMMARY | 2022-04-06 10:56 | XMS_ITS | Encounter Summary ---
:[address] [facility] Address [address] [place] [address] Care Team Providers Name Role Phone Jennifer Gomez SENIOR ART DIRECTOR Primary Care Provider Encounter Details Date Type Department Care Team Description 01/25/2022 Lab Requisition [facility] Outr Resulting Lab, Pathology & Laboratory Provider [facility] [address] [place], [place] [address] Social History Tobacco Use Types Packs/Day Years [...] Pathologist Sig nature Salmonella PCR Negative Negative [facility] SERVICES Shigella/Enteroinvasive Negative Negative [facility] R E. coli LABORATORY SERVICES HN LAB CAMPYLOBACTER PCR Negative Negative [facility] ER LABORATORY SERVICES Shiga Toxin PCR Negative Negative [facility] SERVICES Specimen Feces - Specimen from rectum (specimen) Performing Organization Address City/State/ZIP Code Phon e Number [facility] [address] [place] [address] SERVICES documented in this encounter Visit Diagnoses Not on filedocumented in this encounter Care Teams Freight Sales Broker Relationship Specialty Start Date End Date Jennifer Gomez, SENIOR ART DIRECTOR PCP - General 05/10/15 [facility] [address] [place], [place] [id number] documented as of this encounter
--- OUTSIDE RECORDS SUMMARY | 2022-04-06 10:56 | XMS_ITS | Encounter Summary ---
:1945 Author Organization [facility] [place] [address] Care Team Providers Name Role Phone France Lam MD Primary Care Provider Encounter Details Date Type Department Care Team Description 01/09/2020 TH [place]rology [place] [facility] Efrain Nicole, Intracranial hemorrhage; (TeleHealth) [facility] ESTEFANY Tobacco abuse; [facility] Cerebrovascular accident (CV A) due to embolism of right posterior cerebral artery [facility] [address] NEUROLOGY [phone] [place] [address] Social History Tobacco Use Types Packs/Day Years Used Date Current Every Day Smoker Cigars 0.5 Sex Assigned at Date Recorded Not on file documented as of this encounter Progress Notes Efrain Nicole PA - 01/09/2020 9:00 AM EDT Cerebrovascular Disease and Stroke Program [place] [address] t: [phone] / f: [phone] TELEPHONE ENCOUNTER Date of Appointment: 01/09/2020 I [...] cardiology - had f/u head CT at [facility] which was stable with resolving known hemorrhage - has not resumed smoking -has been in touch with Dr. Sanchez for Watchman, deferred for duration of anticoagulation for PE Modified Stratford Scale (MRS) 0: No symptoms at all [...] -advised vision/eye exam with his local provider ([facility]); consider referral to neuro-ophthalmology here [...] artery documented in this encounter Care Teams Aircraft Dispatcher Relationship Specialty Start Date End Date France Lam MD PCP - General 05/02/13 02/04/20 [address] [place] [address] documented as of this encounter
--- OUTSIDE RECORDS SUMMARY | 2022-04-06 10:56 | XMS_ITS | Encounter Summary ---
:1945 Author Organization [facility] Address [address] [place] [address] Care Team Providers Name Role Phone Jovany Lott MD Primary Care Provider Encounter Details Date Type Department Care Team Description 08/31/2020 TH Visit Cardiology at [facility] Faustino Garduno Atrial fibrillation, unspeci fied type (Primary Dx); (TeleHealth) [facility] MD Jaquan Acute ST elevation myocardial infarction (STEMI) of inferior wall; [facility] Acute systolic CHF (congesti ve heart failure), NYHA class 3, MILVIA/AHA stage C; [place], [place] Center Hyperlipidemia, unspecified hyperlipidem ia type; [address] [place], [place] Intracranial hemorrhage; [phone] PFO (patent foramen ovale); [phone] Claudication fr om peripheral vascular disease, left [...] with ICH, bilateral PE; paroxysmal atrial fibrillation [[id number]: 5]; PAD; HLD; HTN; smoking and PFO,who [...] appointment with Dr. Faustino Chou at the [facility]. However, he has not grossly noted [...] a non-culprit artery. S/P DESx3 in the wxratkln-gw-mecamy RCA. Aspiration thrombectomy performed, and integrellin bolus [...] with ICH, bilateral PE; paroxysmal atrial fibrillation [[id number]: 5]; PAD; HLD; HTN; smoking and PFO, [...] Will also discuss further with his local control clerk auditing, Dr. Mejia. 3. Bilateral PE - Case discussed with Dr. Sanchez above; likely provoked in lieu of his prolonged hospitalization. He has completed at least 6 months of oral A/C (coinciding treatment for his afib). 4. PAD - Continue optimal medical therapy for now. Will place referral for SET/walking program. F/U 3 months Faustino Garduno MD Time spent: 35 minutes Addendum 09/13/20: Called [phone] or [phone] and was able to speak to Dr. Faustino Chou. Pt also sees Dr. Lott in [facility] for local primary care needs. Dr. Chou [...] unspecified documented in this encounter Care Teams Automatic Packer Operator Relationship Specialty Start Date End Date Jovany Lott MD PCP - General Family Medicine 02/05/20 Coni [place] [phone] documented as of this encounter
--- OUTSIDE RECORDS SUMMARY | 2022-04-06 10:56 | XMS_ITS | Encounter Summary ---
:1945 Author Organization [facility] [place] [address] Care Team Providers Name Role Phone Jovany Lott MD Primary Care Provider Encounter Details Date Type Department Care Team Description 11/10/2020 [place]phone [place] [facility] [address] Social History Tobacco Use Types Packs/Day [...] on filedocumented in this encounter Care Teams Side Laster Staple Relationship Specialty Start Date End Date Jovany Lott MD PCP - General Family Medicine 02/05/20 [place] [phone] documented as of this encounter
--- OUTSIDE RECORDS SUMMARY | 2022-04-06 10:56 | XMS_ITS | Encounter Summary ---
:1945 Author Organization [facility] [place] [address] Care Team Providers Name Role Phone Jovany Lott MD Primary Care Provider Encounter Details Date Type Department Care Team Description 10/12/2020 Notes Only Cardiology at [facility] Willow Callejas, [facility] [place] [address] Social History Tobacco Use Types Packs/Day [...] want totalk to my doctor at the [facility] and do a little more research before I decide what to do, I'm a little afraid of it. He notes that he has a scheduled clinic visit in November and will discuss with Dr. Garduno at that time. documented in this encounter Plan of Treatment Not on filedocumented as of this encounter Visit Diagnoses Not on filedocumented in this encounter Care Teams Cio Relationship Specialty Start Date End Date Jovany Lott MD PCP - General Family Medicine 02/05/20 [place] [phone] documented as of this encounter
--- OUTSIDE RECORDS SUMMARY | 2022-04-06 10:56 | XMS_ITS | Encounter Summary ---
:1945 Author Organization [facility] Address [address] [place] [address] Care Team Providers Name Role Phone France Lam MD Primary Care Provider Encounter Details Date Type Department Care Team Description 12/30/2019 TH Visit Cardiology at [facility] Faustino Garduno Claudication from peripheral vascular disease, left ; (TeleHealth) [facility] MD Jaquan Hyperlipidemia, unspecified hyperlipidem ia type; Drive [facility] Acute ST elevation myocardia l infarction (STEMI) of inferior wall; [place], [place] Center Acute systolic CHF (congestive heart reid lure), NYHA class 3, MILVIA/AHA stage C; [address] [place], [place] Intracranial hemorrhage; [phone] [address] Atrial fibrillation, unspecified type Social History Tobacco [...] with ICH, bilateral PE; paroxysmal atrial fibrillation [[id number]: 5]; PAD; HLD; HTN; smoking and PFO,who [...] a non-culprit artery. S/P DESx3 in the [id number]-ar-[id number] RCA. Aspiration thrombectomy performed, and integrellin bolus [...] with ICH, bilateral PE; paroxysmal atrial fibrillation [[id number]: 5]; PAD; HLD; HTN; smoking and PFO, who presents for post-discharge cardiovascular follow-up. CV issues are currently stable. Plan 1. CAD - CCS Class 0. Recovering well. He has completed 1 month of triple therapy. He may stop his aspirin, and resume clopidogrel and apixaban. Starting cardiac rehab. He wishes to pursue PCSK9 referral via the [place] system. 2. Afib - CHADS2-vasc 5, presently [...] 6 months Faustino Garduno MD Time spent: [id number] 0-5min [id number] 6-10min 3882PHJ2 11-15min [id number] 16-20min XXXX 7726CCM6 21-30min [id number] 31-40min [id number] 40+ min documented in this encounter Plan [...] type documented in this encounter Care Teams Elementary Instructional Coach Relationship Specialty Start Date End Date France Lam MD PCP - General 05/02/13 02/04/20 [address] [place] [address] documented as of this encounter
--- OUTSIDE RECORDS SUMMARY | 2022-04-06 10:56 | XMS_ITS | Encounter Summary ---
:1945 Author Organization [facility] Address [address] [place] [address] Care Team Providers Name Role Phone Jennifer Gomez PROFESSIONAL ADVISOR Primary Care Provider Encounter Details Date Type Department Care Team Description 02/07/2020 Lab Requisition [facility] Outr Resulting Lab, Pathology & Laboratory Provider [facility] [address] [place] [address] Social History Tobacco Use Types [...] (02/07/2020 7:59 EDT) COVID-19 rt-PCR NEGATIVE Negative [facility] Result Comment: LABORATORY 2019-novel [...] City/State/ZIP Code Phon e Number [facility] [place], [place] COVID-19 TESTING (02/07/2020 7:59 EDT) COVID-19 rt-PCR NEGATIVE Negative [facility] Result Comment: LABORATORY 2019-novel [...] Administration's Emergency Use Authorization. Performing Lab [facility] LABORATORY SERVICES Specimen Swab Performing Organization Address City/State/ZIP Code Phon e Number [facility] [address] [place] [address] SERVICES [facility] [place], [place] documented in this encounter Visit Diagnoses Not on filedocumented in this encounter Care Teams Inspecting Machine Adjuster Relationship Specialty Start Date End Date Jennifer Gomez NP PCP - General 05/10/15 [facility] [address] [place], [place] [address] documented as of this encounter
--- OUTSIDE RECORDS SUMMARY | 2022-04-06 10:56 | XMS_ITS | Encounter Summary ---
:[address] [facility] Address [address] [place] [address] Care Team Providers Name Role Phone Jennifer Gomez TOOLING MECHANIC Primary Care Provider Encounter Details Date Type Department Care Team Description 02/15/2022 Lab Requisition [facility] Outr Resulting Lab, Pathology & Laboratory Provider [facility] [address] [place], [place] [address] Social History Tobacco Use Types Packs/Day Years [...] 9.3 (H) 2.8 - 5.3 pg/mL [facility] TORY SERVICES Specimen Blood - Venous blood (substance) Performing Organization Address City/State/ZIP Code Phon e Number [facility] [address] [place] [address] SERVICES documented in this encounter Visit Diagnoses Not on filedocumented in this encounter Care Teams Laborer Brush Clearing Relationship Specialty Start Date End Date Jennifer Gomez, TOOLING MECHANIC PCP - General 05/10/15 [facility] [address] [place], [place] [id number] documented as of this encounter
--- OUTSIDE RECORDS SUMMARY | 2022-04-06 10:56 | XMS_ITS | Encounter Summary ---
:1945 Author Organization [facility] Address [address] [place] [address] Care Team Providers Name Role Phone Unavailable Primary Care Provider Unavailable Encounter Details Date Type Department Care Team Description 09/15/2003 Results Only [facility] - Otis Patel MD conversion [address] [facility] [address] [place] [address] [place] [address] (Wo rk) Social History Tobacco Use Types [...] ANGEL LUIS SALINAS ? Accession #: ? [id number] ? : ? 1945 (Age: 58) ??M ? Collect Date: ? 09/15/2003 ? Location: ? [facility] ? Receive Date: ? 004 ? Provider: OTIS MOSS MD Copy to: MALCOM MCGEE EHR TRAINER ? Final Pathologic Diagnosis: ? Skin of [...] Organization Address City/State/ZIP Code Phon e Number [facility] [address] [place] [address] SERVICES [facility] [address] [place] [address] documented in this encounter Visit Diagnoses Not on filedocumented in this encounter
--- OUTSIDE RECORDS SUMMARY | 2022-04-06 10:56 | XMS_ITS | Encounter Summary ---
:1945 [place] [address] Care Team Providers Name Role Phone France Lam MD Primary Care Provider Encounter Details Date Type Department Care Team Description 12/29/2019 Ancillary Procedure Radiology Library at Ivette Salas [facility] [place] [address] [place] [address] [place] [address] [phone] (Wo rk) Social History Tobacco Use Types [...] is for storage only. Alfreda Salas APRN [facility] FILM LIBRARY ORDERABLES Performing Organization Address City/State/ZIP Code Phon e Number [place], [place] documented in this encounter Visit Diagnoses Not on filedocumented in this encounter Care Teams Infantry Weapons Crewmember Relationship Specialty Start Date End Date France Lam MD PCP - General 05/02/13 02/04/20 [address] [place] [address] documented as of this encounter
--- OUTSIDE RECORDS SUMMARY | 2022-04-06 10:57 | XMS_ITS | Encounter Summary ---
:1945 Author Organization [facility] Address [address] [place] [address] Care Team Providers Name Role Phone France Lam MD Primary Care Provider Encounter Details Date Type Department Care Team Description 12/18/2019 Ancillary Procedure Radiology Library at Debi Lam [facility] [address] [place] [id number] [place] [address] [phone] Social History Tobacco Use Types Packs/Day Years [...] is for storage only. France Lam MD [facility] FILM LIBRARY ORDERABLES Performing Organization Address City/State/ZIP Code Phon e Number [place], [place] documented in this encounter Visit Diagnoses Not on filedocumented in this encounter Care Teams Asbestos Hazard Abatement Worker Relationship Specialty Start Date End Date France Lam MD PCP - General 05/02/13 02/04/20 [address] [place] [address] documented as of this encounter
--- OUTSIDE RECORDS SUMMARY | 2022-04-06 10:57 | XMS_ITS | Encounter Summary ---
:1945 Author Organization [facility] [place] [address] Care Team Providers Name Role Phone France Lam MD Primary Care Provider Encounter Details Date Type Department Care Team Description 12/08/2019 Telephone Neurosurgery at [facility] [place] [address] Social History Tobacco Use Types Packs/Day Years Used Date Current Every Day Smoker Cigars 0.5 Sex Assigned at Date Recorded Not on file documented as of this encounter Miscellaneous Notes Telephone Encounter - Elza Bradshaw - 12/22/2019 6:[address] in [facility] Telephone Encounter - Elza Bradshaw - 12/18/2019 3:43 PM EDT Left message at [facility] requesting they call back to advise if patient has been scheduled for CT. Telephone Encounter - Sarah Boucher - 12/08/2019 3:[address] order to [facility] to schedule, 12/16-12/18 for 12/22 TOV scheduled w/[facility] Telephone Encounter - Sarah Boucehr - 12/08/2019 9:50 AM EDT RN, please put in CT order external=[facility] Pt's called not able to come to [facility] on 12/[address] to have [address] locally at [facility] call w/results. documented in this encounter Plan of Treatment Not on filedocumented as of this encounter Visit Diagnoses Not on filedocumented in this encounter Care Teams Dwarf Tree Grower Relationship Specialty Start Date End Date France Lam MD PCP - General 05/02/13 02/04/20 [address] [place] [address] documented as of this encounter
--- OUTSIDE RECORDS SUMMARY | 2022-04-06 10:57 | XMS_ITS | Encounter Summary ---
:1945 Author Organization [facility] [address] Care Team Providers Name Role Phone France Lam MD Primary Care Provider Reason for Visit Reason Onset Date Comments TeleHealth 12/22/2019 Appt 12/23/19 Encounter Details Date Type Department Care Team Description 12/22/2019 Telephone Neurosurgery at [facility] Alfreda Salas TeleHealth (Appt [facility] Devin Sebastian, SUPERVISOR CAR AND YARD 12/23/19) [place] [address] [place] [address] [place] [address] Social History Tobacco Use Types Packs/Day [...] on filedocumented in this encounter Care Teams Navy Diver Relationship Specialty Start Date End Date France Lam MD PCP - General 05/02/13 02/04/20 [address] [place] [address] documented as of this encounter
--- OUTSIDE RECORDS SUMMARY | 2022-04-06 10:57 | XMS_ITS | Encounter Summary ---
:1945 Author Organization [facility] Address [facility] [address] [place] [address] Care Team Providers Name Role Phone France Lam MD Primary Care Provider Encounter Details Date Type Department Care Team Description 12/22/2019 Telephone Cardiology Riki Stevens, [facility] [place] [address] [facility] [phone] GENERAL [facility] [place] [id number] (Wo rk) Social History Tobacco Use Types [...] on filedocumented in this encounter Care Teams Vasc Tech Relationship Specialty Start Date End Date France Lam MD PCP - General 05/02/13 02/04/20 [address] [place] [address] documented as of this encounter
--- OUTSIDE RECORDS SUMMARY | 2022-04-06 10:57 | XMS_ITS | Encounter Summary ---
:1945 [place] [address] Care Team Providers Name Role Phone France Lam MD Primary Care Provider Encounter Details Date Type Department Care Team Description 12/08/2019 Orders Only Neurosurgery [place] [facility] Natalia Delong, Intracranial [facility] [place] [address] Social History Tobacco Use Types Packs/Day Years Used Date Current Every Day Smoker Cigars 0.5 Sex Assigned at Date Recorded Not on file documented as of this encounter Plan of Treatment Not on filedocumented as of this encounter Visit Diagnoses Diagnosis Intracranial hemorrhage Unspecified intracranial hemorrhage documented in this encounter Care Teams Press Operator Apprentice Relationship Specialty Start Date End Date France Lam MD PCP - General 05/02/13 02/04/20 [address] [place] [address] documented as of this encounter
--- OUTSIDE RECORDS SUMMARY | 2022-04-06 10:58 | XMS_ITS | Encounter Summary ---
:1945 Author Organization [facility] [address] Care Team Providers Name Role Phone France Lam MD Primary Care Provider Encounter Details Date Type Department Care Team Description 11/30/2019 Orders Only Cardiology [facility] [place] [address] Social History Tobacco Use Types Packs/Day [...] fajardo ? (Age): 1945(74y) Med Rec#: ? [id number] ?Sex: ?M ? Site Loc: ? Ht / Wt: ??(cm)/ (kg) ? Pt. Loc: ? Study Date: ?? 11/29/2019 ?Pt. Type: Tape: ? Referring: Faustino Garduno Reading: Dawit Mejia ([id number]) Polisher Balance Screwhead: [employer] Pairer: Cedric Eric ([id number]) Interpreting Fellow: Cedric Eric ([id number]) Diagnosis: SUMMARY: 1. Limited bedside echocardiogram perfor med by automation and control engineer card placer for hypotension following inferior STEMI . 2. Global left ventricular systolic func tion is mildly reduced with visually estimated ejection fraction of 45%. There are left ventricular segmental wall motion abnormalities pres ent, as shown in the diagram below. 3. The right ventricular global systolic function is moderately reduced. The free wall of the right ventricle risahbh ears akinetic. 4. There is no pericardial [...] ? Mid-Inferior ?Akinetic ? Mid-Inferoseptal ?Hypokinetic ? [place]-Septal ? Normal ? [place]-Anterior ? Normal ? [place]-Lateral ?Normal ? [place]-Inferior ? Hypokinetic ? [place]-Tip ?Normal ? This report has been electronically sign ed by: _ Dawit Mejia MD ? 11/30/2019 12: 53:59 Images reviewed and interpretation rafaela [email or web address] [facility] Cardiac Ultrasound Laboratory Procedure Note Dawit Mejia MD - 11/30/2019Formatti ng of this note might be different from the original. Procedure: Transthoracic Echocardiogram Patient: domenica ACOSTA(Age): [age]y) Med Rec#: [id number] Sex: M Site Loc: Ht / Wt: (cm)/ (kg) Pt. Loc: Study Date: 11/29/2019 Pt. Type: Tape: Referring: Faustino Garduno Reading: Dawit Mejia ([id number]) Polisher Balance Screwhead: [employer] Pairer: Cedric Eric ([id number]) Interpreting Fellow: Cedric Eric ([id number]) Diagnosis: SUMMARY: 1. Limited bedside echocardiogram perfor med by automation and control engineer card placer for hypotension following inferior STEMI . 2. [...] Normal Mid-Posterolateral Akinetic Mid-Inferior Akinetic Mid-Inferoseptal Hypokinetic [place]-Septal Normal [place]-Anterior Normal [place]-Lateral Normal [place]-Inferior Hypokinetic [place]-Tip Normal This report has been electronically sign ed by: _ Dawit Mejia MD 11/30/2019 12:53:59 Images reviewed and interpretation verif ied [facility] Cardiac Ultrasound Laboratory Unknown ECHO ORDERABLES documented in this encounter Visit Diagnoses Not on filedocumented in this encounter Care Teams Public Health Inspector Relationship Specialty Start Date End Date France Lam MD PCP - General 05/02/13 02/04/20 [address] [place] [address] documented as of this encounter
--- OUTSIDE RECORDS SUMMARY | 2022-04-06 10:58 | XMS_ITS | Encounter Summary ---
:1945 Author Organization [facility] [place] [address] Care Team Providers Name Role Phone France Lam MD Primary Care Provider Reason for Referral Consultation (Routine) - Specialty Diagnoses / Procedures Referred By Contact Refer red To Contact Cardiology Diagnoses Acute ST elevation myocardial infarction (STEMI) of inferior wall Darrell Glasgow MD [facility] [place] [address] Referral ID Status Reason Start Date Expiration Date Visits V isits Requested Authorized [id number] Consult, 12/08/2019 06/05/2020 1 1 Test & Treat Consultation (Routine) - Closed Specialty Diagnoses / Referred By Contact Referred To Contact Procedures Cardiac Rehabilitation Diagnoses ST elevation myocardial infarction involving right coronary artery Gretchen Yoon, Cardiac Rehab, [address] [place] [address] Fax: Referral ID Status Reason Start Date Expiration Date Visits V isits Requested Authorized [id number] Closed Consult, 12/08/2019 06/05/2020 36 36 Test & Treat Reason for Visit Auth/Cert Specialty Diagnoses / Procedures Referred By Contact Refer red To Contact Diagnoses STEMI (ST elevation myocardial infarction) STEMI Procedures CARDIAC CATHETERIZATION Referral ID Status Reason Start Date Expiration Date Visits Requ ested Visits Authorized [id number] 1 1 Encounter Details Date Type Department Care Team Description 11/29/2019 - Hospital Encounter Cardiac Special YoungBarbra MD [facility] [place] [address] ST elevation myocardial infarction invol ving left main coronary artery; 12/08/2019 Care Unit Paris Lozano MD [facility] [place] [address] ST elevation myocardial infarction invol ving right coronary artery; [facility] Edema of upper extremity; Hospital Intracranial hemorrhage; [facility] Paroxysma l atrial fibrillation; Drive Acute pulmonary embolism, un specified pulmonary embolism type, unspecified whether acute cor pulmonale present; [place], [place] Acute ST elevat ion myocardial infarction (STEMI) of inferior wall [id number] Social History Tobacco Use Types Packs/Day Years [...] Luis Salinas Patient Age: 74 y.o. Language: Somali Race: White Ethnicity: Not nor Admit date: [...] months on: antiplatelet therapy at discretion of software quality assurance engineer - Repeat TTE in 3 months to reassess LV function - Repeat BMP in 1-2 weeks given recent start lisinopril - Referred to lipid clinic for consideration of PCSK-9 inhibitor given STEMI with intolerance of statins - Started on amiodarone this admission for recurrent rapid atrial flutter with rates ~170, recommendcontinued assessment of necessity of rhythm control strategy with software quality assurance engineer - Amiodarone monitoring recommendations as below [...] physician through the [facility] Program Director/Air Personality . Issues after hours and on weekends [...] took two full strength aspirinand came to [facility] ED. At there was found to [...] up to 10mcg/min. He was transferred to [facility] after the cath procedure. Bedside RHC showed CI 2.12, PAWP 11, PAP 38/15 indicating hypovolemic state. He received 1L bolus of NS with improvement of his blood pressure to 124/61. History of PAD, HLD - had side reactions to statins - so taking niacin and red rye grain. Chronic active smoker with more than 65 pack years. Family history of PR in father and two uncles. He's takingbaby [...] number below. Electronically signed by: Estefani Harris [facility] ([phone]), at 11/29/2019 4:[address] Head wo Contrast (Generic) (Exam End: 11/30/2019 10:41 AM) Impression Focal hemorrhage with small amount of adjacent edema projecting in the region of the left optic tract. Thank you for letting us participate in the care of this patient. For questions regarding this report, please contact the number below. Electronically signed by: [facility] ([phone]), at 11/30/2019 12:[address] Head wo [...] below. Electronically signed by: Angel Luis [facility] ([phone]), at 11/30/2019 5:[address] Angiogram [place] [facility] [place] (Exam End: 11/30/2019 4:36 PM) Impression Head CT: Stable hemorrhage in the region of the left optic tract. CTA: Negative exam. No abnormal vasculature in the area of hemorrhage. Thank you for letting us participate in the care of this patient. For questions regarding this report, please contact the number below. Electronically signed by: Angel Luis Barboza MD, [facility] ([phone]), at 11/30/2019 5:04 PM MRI Brain wo [...] Electronically signed by: Angel Luis Barboza MD, [facility] ([phone]), at 12/01/2019 8:02 PM XR Chest One [...] number below. Electronically signed by: Roselyn Luciano [facility] ([phone]), at 12/04/2019 6:16 PM MRI Brain wwo [...] ??? Penicillins Pt doesn't remember reaction ??? Xqcmsit-Iol-Uvc Reductase Inhibitors Stiff neck, upset stomach, back [...] FOR ONE MONTH AND THEN STOP. Your software quality assurance engineer may tell you to start this medication again after one year. Clopidogrel (Plavix) 75 mg daily - This medication will help prevent clots from forming in your blood, which will help protect the stent that was placed in your heart vessel. TAKE THIS FOR ONE YEAR ANDTHEN DISCUSS WITH YOUR PLANT CUSTODIAN WHETHER TO STOP. Amiodarone 400mg twice daily [...] follow up: Your primary care provider and software quality assurance engineer will manage your blood thinner (apixaban). You do not need lab monitoring of this medication. Diet: Please consume a healthy diet low in cholesterol Follow up Appointments: 12/10/2019 at 3:10PM with PCP Angel Luis Lott Future Appointments Date Time Provider Department Center 12/23/2019 1:30 PM Alfreda Salas APRN [address] 12/26/2019 9:40 AM Merlin Sanchez MD [facility] CARD 4A [facility] 12/30/2019 3:40 PM Gretchen Yoon MD [facility] 4A [facility] Future Appointments and Orders Future Appointments and Orders Future Appointments Provider Department Dept Phone 12/23/2019 1:30 PM Alfreda Salas APRN Neurosurgery at [facility] Arrive at: Home [phone] Please do not come in for this visit. Your provider will call you at the number you provided. 12/26/2019 9:40 AM Merlin Sanchez MD Cardiology at [facility] Arrive at: Home [phone] Please do not come in for this visit. Your provider will call you at the number you provided. 12/30/2019 3:40 PM Gretchen Yoon MD Cardiology at [facility] Arrive at: Home [phone] Please do not come in for this visit. Your provider will call you at the number you provided. Future Orders Complete By Expires Referral to Cardiac Rehab [KCL431 Custom] As directed Process Instructions: If no [...] Referral to Home Health - at DISCHARGE [GML6123 CPT(R)] As directed Process Instructions: Scheduling Instructions: Comments: DOCUMENTATION FOR VNA SERVICES PATIENT'S LOCATION: [address] [id number] (home) Seaman Officer's Name: Self In discussion with the attending physician, it is certified that this patient is under his/her care and that MD, or an MAKEUP ARTIST, ENGRAVER LETTER, or PA who is working directly with him/her, had a konx-xa-jiec encounter that meets the physician qepx-bf-rrdr encounter requirements with this patient on 12/07/2019. [...] ADLs. HOME HEALTH CARE AGENCY: [facility], PHONE: [phone] FAX: [phone] Start of care: 24-48 hours after hospital [...] MD [address] / [place] [address] All A agencies which cover the area of patient's residence have been reviewed, either verbally or in writing, and patient/family have chosen the home health care agency noted. Questions: Agency name and contact information: [facility] Patient location post discharge: Home What services are requested: Registered Nurse Physical Therapy Occupational Therapy Start date: Responsible MD post discharge contact info: PCP Your PCP: France Lam MD [phone] For questions regarding this document or issues relating to this hospitalization on the Cardiology Service, please contact your inpatient physician through the [facility] Program Director/Air Personality . Issues after hours and on weekends will be handled by the Pin Drafter Operator on-call. Patient Instructions: Neurology Your Diagnosis: Left [...] follow-up appointment in the neurology clinic at [facility]. See below for the appointment time. [...] [facility] Arrive at: Home [phone] Please do not come in for this visit. Your provider will call you at the number you provided. 12/26/2019 9:40 AM Merlin Sanchez MD Cardiology at [facility] Arrive at: Home [phone] Please do not come in for this visit. Your provider will call you at the number you provided. 12/30/2019 3:40 PM Gretchen Yoon MD Cardiology at [facility] Arrive at: Home [phone] Please do not come in for this visit. Your provider will call you at the number you provided. Future Orders Complete By Expires Referral to Cardiac Rehab [[id number] Custom] As directed Process Instructions: If no [...] Referral to Home Health - at DISCHARGE [XTN8589 CPT(R)] As directed Process Instructions: Scheduling Instructions: Comments: DOCUMENTATION FOR VNA SERVICES PATIENT'S LOCATION: [address] [phone] (home) Seaman Officer's Name: Self In discussion with the attending physician, it is certified that this patient is under his/her care and that MD, or an MAKEUP ARTIST, ENGRAVER LETTER, or PA who is working directly with him/her, had a mhfr-uy-lmfv encounter that meets the physician fmhl-iz-ptic encounter requirements with this patient on 12/07/2019. [...] ADLs. HOME HEALTH CARE AGENCY: [facility], PHONE: [phone] FAX: [phone] Start of care: 24-48 hours after hospital [...] France Lam MD [address] / [facility] [address] All A agencies which cover the area of patient's residence have been reviewed, either verbally or in writing, and patient/family have chosen the home health care agency noted. Questions: Agency name and contact information: [facility] Patient location post discharge: Home What services are requested: Registered Nurse Physical Therapy Occupational Therapy Start date: Responsible MD post discharge contact info: PCP Discharge References/Attachments Atrial Fibrillation (Somali) Cardiac Rehabilitation (Somali) Heart Failure (Somali) Heart Failure: Limiting Sodium (Somali) Hemorrhagic Stroke: General Info (Somali) Smoking: Stopping (Somali) Stroke Rehabilitation: General Info (Somali) Pulmonary Embolism (Somali) Riki Stevens MD PGY-3, Internal Medicine Cardiology S2, #6274 Associated attestation - Paris Dodd MD - 12/09/2019 4:44 PM EDT Cardiology Attending Discharge Addendum I was the assigned attending software quality assurance engineer for this clinical encounter. For the [...] complications include novel onset, paroxysmal atrial fibrillation [[id number]: 5] & L-sided diplopia with potential hemineglect [...] information: Paris Matt MD MPH [place] [phone] (office); Pager #[phone] Email: [email or web address] documented in this encounter Discharge Instructions Patient [...] FOR ONE MONTH AND THEN STOP. Your software quality assurance engineer may tell you to start this medication again after one year. Clopidogrel (Plavix) 75 mg daily - This medication will help prevent clots from forming in your blood, which will help protect the stent that was placed in your heart vessel. TAKE THIS FOR ONE YEAR ANDTHEN DISCUSS WITH YOUR PLANT CUSTODIAN WHETHER TO STOP. Amiodarone 400mg twice daily [...] follow up: Your primary care provider and software quality assurance engineer will manage your blood thinner (apixaban). You do not need lab monitoring of this medication. Diet: Please consume a healthy diet low in cholesterol Follow up Appointments: 12/10/2019 at 3:10PM with PCP Angel Luis Lott Future Appointments Date Time Provider Department Center 12/23/2019 1:30 PM Alfreda Salas APRN [facility] [id number] [facility] 12/26/2019 9:40 AM [...] [facility] Arrive at: Home [phone] Please do not come in for this visit. Your provider will call you at the number you provided. 12/26/2019 9:40 AM Merlin Sanchez MD Cardiology at [facility] Arrive at: Home [phone] Please do not come in for this visit. Your provider will call you at the number you provided. 12/30/2019 3:40 PM Gretchen Yoon MD Cardiology at [facility] Arrive at: Home [phone] Please do not come in for this visit. Your provider will call you at the number you provided. Future Orders Complete By Expires Referral to Cardiac Rehab [[id number] Custom] As directed Process Instructions: If no [...] Referral to Home Health - at DISCHARGE [[id number] CPT(R)] As directed Process Instructions: Scheduling Instructions: Comments: DOCUMENTATION FOR VNA SERVICES PATIENT'S LOCATION: [address] [phone] (home) Seaman Officer's Name: Self In discussion with the attending physician, it is certified that this patient is under his/her care and that MD, or an MAKEUP ARTIST, ENGRAVER LETTER, or PA who is working directly with him/her, had a gdrj-lh-cazg encounter that meets the physician cumr-jr-ipij encounter requirements with this patient on 12/07/2019. [...] ADLs. HOME HEALTH CARE AGENCY: [facility], PHONE: [phone] FAX: [phone] Start of care: 24-48 hours after hospital [...] MD [address] / [place] [address] All A agencies which cover the area of patient's residence have been reviewed, either verbally or in writing, and patient/family have chosen the home health care agency noted. Questions: Agency name and contact information: [facility] Patient location post discharge: Home What services are requested: Registered Nurse Physical Therapy Occupational Therapy Start date: Responsible MD post discharge contact info: PCP Your PCP: France Lam MD [phone] For questions regarding this document or issues relating to this hospitalization on the Cardiology Service, please contact your inpatient physician through the [facility] Program Director/Air Personality . Issues after hours and on weekends will be handled by the Pin Drafter Operator on-call. Patient Instructions: Neurology Your Diagnosis: Left [...] follow-up appointment in the neurology clinic at [facility]. See below for the appointment time. If you do not have an appointment, you will be called with a time/date for this appointment. ??? Primary Care Provider: Please follow up with your Primary Care Provider within one to 2 weeks ofdischarge. AttachmentsThe following attachments cannot be sent through Care Everywhere. Atrial Fibrillation (Somali)Cardiac Rehabilitation (Somali)Heart Failure (Somali)Heart Failure: Limiting Sodium (Somali)Hemorrhagic Stroke: General Info (Somali)Smoking: Stopping (Somali)Stroke Rehabilitation: General Info (Somali)Pulmonary Embolism (Somali)documented in this encounter Medications at Time of [...] personal vehicle. Discharge summary faxed to A. Viksah Rodriguez - 12/08/2019 10:59 AM EDT Nutrition [...] consulted in the interim. Vikash Rodriguez Pager: [phone] Paris Dodd MD - 12/08/2019 8:57 AM [...] complications include novel onset, paroxysmal atrial fibrillation [[id number]: 5] & L-sided diplopia with potential hemineglect [...] consulted in the interim. Vikash Rodriguez Pager: [phone] Paris Dodd MD - 12/07/2019 9:55 AM [...] complications include novel onset, paroxysmal atrial fibrillation [GPD4OO8SAHB: 5] & L-sided diplopia with potential hemineglect [...] complications include novel onset, paroxysmal atrial fibrillation [MTS8BC2OUZT: 5] & L-sided diplopia with potential hemineglect [...] complications include novel onset, paroxysmal atrial fibrillation [LYV4LB6UTPC: 5] & L-sided diplopia with potential hemineglect [...] today; additional complications include paroxysmal atrial fibrillation [CCL7BB6RZFM: 4] c/b possible cardioembolic stroke, ICH from [...] length from neck/greatest diameter to back wall: [place], CAU 13: 19 mm CORTES 1, [...] a non-culprit artery. S/P DESx3 in the mwbziwgk-gk-jkgsuc RCA. Aspiration thrombectomy performed, and integrellin bolus [...] complications include novel onset, paroxysmal atrial fibrillation [ZLI6QD3JRJQ: 5] & L-sided diplopia with potential hemineglect [...] R occipital cardioembolic stroke #Paroxysmal Afib with AT3UOZTM2B score of 5 #New segmental bilateral PEs [...] Glasgow MD PGY1, Internal Medicine Cardiology S2, #5669 Associated attestation - Paris Dodd MD - 12/05/2019 2:59 PM EDT I was the assigned attending software quality assurance engineer for this clinical encounter. For the [...] 12/04/2019 10:36 AM EDT Office of Care Management(OCM)/Expressive Art Therapist(CM)/Discharge Planning Service: Cardiology S2 team CM Bernie Alexander,RN,BSN,MA,ACM pgr [phone] Reviewed record and in Cardiology Rounds with MD team,CMs, branch administrator, VESSEL WELDER. Pt is anticipated ready for d/c later today. Met w pt re d/c plan and he continues to agree with home PT/OT/RN w [place]. His son is bringing his to pick [...] complications include novel onset, paroxysmal atrial fibrillation [GQI2MG3KOOW: 4] & L-sided diplopia with potential hemineglect [...] a non-culprit artery. S/P DESx3 in the eoahpinv-sv-jsykuv RCA. Aspiration thrombectomy performed, and integrellin bolus [...] complications include novel onset, paroxysmal atrial fibrillation [NTA8SU5BRZW: 5] & L-sided diplopia with potential hemineglect [...] R occipital cardioembolic stroke #Paroxysmal Afib with HQ8XKBZF5Q score of 5 - No anticoagulation for [...] Glasgow MD PGY1, Internal Medicine Cardiology S2, #9916 I have seen the patient and reviewed [...] in my clinic. Gretchen Yoon MD Pager [phone] Derian Pascual RN - 12/03/2019 9:29 AM [...] Discharge: None Electronically signed: Derian Pascual RN, Expressive Art Therapist Pgr: [phone] 12/03/2019 9:29 AM Gretchen Yoon [...] complications include novel onset, paroxysmal atrial fibrillation [YXU3UV6GJTZ: 4] & L-sided diplopia with potential hemineglect [...] a non-culprit artery. S/P DESx3 in the qkwrheiw-ol-hecvfw RCA. Aspiration thrombectomy performed, and integrellin bolus [...] complications include novel onset, paroxysmal atrial fibrillation [ZVY8CP3PABR: 5] & L-sided diplopia with potential hemineglect [...] [facility] and follow up with [facility] PCP. Patient voiced strong will to quit smoking now, understood that we have resources available for help. Plan [P]: --Neurologic-- # Concern for Left-Sided Diplopia, r/o Hemineglect # Concern for CVA, last-known well 11/29/19 - MRI showed possible cardioembolic stroke #Afib with EC0FAUJH4C score of 5 - Stroke Team Consulted; [...] Anticoagulation/Arrhythmia # Novel Onset, Paroxsymal Atrial Fibrillation [AZF4GC2QKRD: 5] - Hold off anticoagulation for at [...] Glasgow MD PGY1, Internal Medicine Cardiology S2, #7755 I have seen the patient and reviewed the resident's above history and I agree with the details as written. The assessment and plan were formulated in discussion with me and I agree with them as documented. Gretchen Yoon MD Pager [phone] Raul Hein RN - 12/03/2019 5:55 AM [...] Negative mcL Appearance UA Clear Clear Spec [place] UA 1.026 1.006 - 1.030 Color UA [...] PGY3 Neurology Resident 12/01/2019 Vascular Neurology Pager [phone] Neurology Attending Attestation I evaluated the patient [...] diet as medical provider deems appropriate. Consider STOCK PULLER consult for full evaluation and diet recommendations. [...] complications include novel onset, paroxysmal atrial fibrillation [NVI7GD1ZDTX: 4] & L-sided diplopia with potential hemineglect [...] a non-culprit artery. S/P DESx3 in the hdqkszqy-ey-mylruz RCA. Aspiration thrombectomy performed, and integrellin bolus [...] complications include novel onset, paroxysmal atrial fibrillation [BOI1RG0FNUR: 5] & L-sided diplopia with potential hemineglect [...] Anticoagulation/Arrhythmia # Novel Onset, Paroxsymal Atrial Fibrillation [PCY9NT2BCZW: 5] - Hold off anticoagulation - pending [...] Glasgow MD PGY1, Internal Medicine Cardiology S2, #8494 I have seen the patient and reviewed [...] the ICU team. Gretchen Yoon MD Pager [phone] Natalia Claros APRN - 12/02/2019 8:38 AM [...] - We are signing off. Please page [phone] with any questions or concerns. For questions please call NS pager [phone] Natalia Claros APRN 12/02/2019 8:38 AM Clinical Documentation Improvement: Active Hospital Problems Diagnosis ??? Acute ST elevation myocardial infarction (STEMI) of inferior wall ??? Intracranial hemorrhage ??? Hyperlipidemia ??? Tobacco abuse ??? Claudication from peripheral vascular disease, left Resolved Hospital Problems No resolved problems to display. Tello Hsu, SUPERVISOR [employer] - 12/02/2019 2:06 AM EDT 06/01/20 2010 [...] Scan in afternoon. Upon arrival back in [facility] placed on low flow NC at 4 [...] complications include novel onset, paroxysmal atrial fibrillation [SGH0LD6JZSY: 4] & L-sided diplopia with potential hemineglect for which CVA evaluationto be pursued. Active Problems/Subjective: - 11/28: admitted for inferior STEMI, RV failure requiring pressor - got lytics, aspirin and plavix load, heparin gtt, and eptifibatide. 3 MACARIO stents to RCA. [place] cath - low wedge & CVP so [...] a non-culprit artery. S/P DESx3 in the xszdtjys-gp-vfhipe RCA. Aspiration thrombectomy performed, and integrellin bolus [...] complications include novel onset, paroxysmal atrial fibrillation [SJM7OL1UWKZ: 4] & L-sided diplopia with potential hemineglect [...] Anticoagulation/Arrhythmia # Novel Onset, Paroxsymal Atrial Fibrillation [[id number]: 4] - Obtain: TTE - Pending CVA [...] MD, PGY1 PGY3, Internal Medicine Cardiology S2, #3914 I have seen the patient and reviewed [...] down the line. Gretchen Yoon MD Pager [phone] ?? Gretchen Yoon MD Pager [phone] Natalia Claros APRN - 12/01/2019 1:33 AM [...] per primary team For questions please call [employer] pager [phone] Natalia Claros APRN 12/01/2019 7:42 AM Clinical Documentation Improvement: Active Hospital Problems Diagnosis ??? Acute ST elevation myocardial infarction (STEMI) of inferior wall ??? Intracranial hemorrhage ??? Hyperlipidemia ??? Tobacco abuse ??? Claudication from peripheral vascular disease, left Resolved Hospital Problems No resolved problems to display. Tello Hsu, SUPERVISOR [employer] - 11/30/2019 8:44 PM EDT Respiratory Therapy [...] EDT Narrative:Visited in response to request for Power Washer services. Pt was awake, alert, oriented and in bed. Assessment:Patient coping positively with stresses of illness/hospitalization at this time. Pt says that he is hoping to get better and pt is living with and has children and grandchildren. Pt haspurpose of life and has reason to get getter and to be with family. Outcome: Provided emotional and spiritual support and encouraging presence. Power Washer services accepted.Conversation to build trusting relationship.Provided pastoral [...] complications include novel onset, paroxysmal atrial fibrillation [VRD3EW1LFLG: 4] & L-sided diplopia with potential hemineglect for which CVA evaluationto be pursued. Active Problems/Subjective: - Overnight, CVP < 12 for which a total of 1 L IVF provided - Today AM, patient complains of subjectively reported, left-sided hemineglect with floaters and diplopia [see: exam]. - Otherwise, c/o neck pain 2/2 R IJ [place] & L radial A line. Otherwise, denies [...] a non-culprit artery. S/P DESx3 in the rinkmulp-za-yasoee RCA. Aspiration thrombectomy performed, and integrellin bolus [...] complications include novel onset, paroxysmal atrial fibrillation [[id number]: 4] & L-sided diplopia with potential hemineglect [...] Anticoagulation/Arrhythmia # Novel Onset, Paroxsymal Atrial Fibrillation [[id number]: 4] - Obtain: TTE to confirm rhythm [...] MD, PGY3 PGY3, Internal Medicine Cardiology S2, #[id number] I have seen the patient and reviewed [...] down the line. Gretchen Yoon MD Pager [phone] Paola Capps RN - 11/30/2019 6:57 AM EDT PT still requiring 4 of levo, several attempts to titrate down (maps in 70;s) But maps would drop toless than 65. Pt very restless in bed Raising and lowering head denies pain . Integrillin stopped [id number] when bottle complete , urine tea colored [...] PCP: France Lam MD PCP phone #: [phone] Textile Dyer: None ID/Chief Complaint: Chest pain History of Present Illness: 74 y.o male with no significant PMH, was in usual state of health until yesterday when he woke up at 4am this morning with severe crushing substernal chest pain 10/. He took two full strength aspirin and came to [facility] ED. At there was found to [...] up to 10mcg/min. He was transferred to [facility] after the cath procedure. Bedside RHC showed CI 2.12, PAWP 11, PAP 38/15 indicating hypovolemic state. He received 1L bolus of NS with improvement of his blood pressure to 124/61. History of PAD, HLD - had side reactions to statins - so taking niacin and red rye grain. Chronic active smoker with more than 65 pack years. Family history of PR in father and two uncles. He's takingbaby [...] ??? Penicillins Pt doesn't remember reaction ??? Bwqjcmk-Pqy-Ljf Reductase Inhibitors Stiff neck, upset stomach, back pain Family History: Mother: Father: PR 2 Uncles with MIs Social History: Tobacco: Current active smoker 1 ppd. 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 Vitals: Last value Range last [...] in the last 7068 hours. Invalid input(s): [id number] Heme: No results for input(s): LDH, HAPTOGLOBIN, [...] Admit to Cardiology, S2 Team Pager # [phone] #Inferior STEMI, LEYLA 149 - Resolving EKG [...] PCI of the RCA with MACARIO x3. Grtechen Yoon MD Pager [phone] documented in this encounter Procedure Notes Juventino [...] to the planned procedure. Hand Hygiene: The dermatologist managing partner did perform hand hygiene prior to arterial [...] a suspected line-associated infection. Location of Procedure: [facility] Risks and Benefits: The risks and benefits [...] to the planned procedure. Hand Hygiene: The dermatologist managing partner did perform hand hygiene prior to line [...] side:right An Introducer (PSI Kit) was used. Cubero. Insertion Side: right. Insertion Site: internal jugular. Catheter Details: Number of Lumens: 1 Catheter Type: heparin-coated The line was placed over a guidewire. Confirmation of Venous Placement: Venous placement was confirmed by transducing the pressure. Introducer Insertion Attempts: 1 Comments: Floating the [place]-Mo Catheter Attempts: 1 Comments: Sterile Dressing: Biopatch [...] better pt back in SR. Please page [phone] for any more cares or concerns Plan [...] complications include novel onset, paroxysmal atrial fibrillation [[id number]: 5]& L-sided diplopia with potential hemineglect for [...] Total Evaluation Minutes, Occupational Therapy: 10 Pager: [phone] FRANCINE Nuñez Occupational Therapy Rehabilitation Department Plan [...] complications include novel onset, paroxysmal atrial fibrillation [[id number]: 5] & L-sided diplopia with potential hemineglect [...] hand rails). Baseline Mobility: Independent. Drives. 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 Time IN / OUT: 7641-0912 Total Evaluation Minutes, Physical Therapy: 15(gtx1) Barbara Baldwin, PT Pager: [phone] Physical Therapy Inpatient Rehabilitation Department Plan of [...] he receives all he needs through the [facility]. Consult refused. Romain Tran, MSN, RN-, [facility] Tobacco Project Leader [facility] Pager #[phone] Plan of Care - Romain Oglesby OT [...] complications include novel onset, paroxysmal atrial fibrillation [[id number]: 5] & L-sided diplopia with potential hemineglect [...] and measurable assessment of functional outcome. Pager: [phone] ROMAIN OGLESBY OT 12/03/2019 Occupational Therapy Rehabilitation [...] complications include novel onset, paroxysmal atrial fibrillation [[id number]: 5] & L-sided diplopia with potential hemineglect [...] hand rails). Baseline Mobility: Independent. Drives. 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 Time IN / OUT: 8287-9012 Total Evaluation Minutes, Physical Therapy: 25(eval, gtx1) Barbara Baldwin, PT Pager: [phone] Physical Therapy Inpatient Rehabilitation Department Consult Note [...] Please contact JOHANNA NOBLES RN on pager [phone] or the wound care team at [phone] or pager [phone] skin and wound care concerns or questions. [...] Salinas would be surrogate decision maker per [place] surrogate decision making law. Any patient receiving carspousee at [facility] must abide by [place] law. The hierarchy for surrogate decisionmaking is: [...] (i) The agent with financial power of recreational director or a conservator appointed in accordance with [...] Insurance: N/A Prescription Coverage: Yes Preferred Pharmacy: [place], [place] Other: No Primary Care Provider: France Lam MD [phone] Patient/Caregiver Goals of Treatment: Return home Potential Needs for Transition of Care: Rehab/SNF: Based on discussions with the multi-disciplinary healthcare team, the patient would benefit from SNF level of care at discharge. ?? I have met with the patient to discuss discharge planning needs. I have provided the [facility], Officeof Care Management letter from the Dielectric Machine Operator pertaining to rehab referrals. I have also provided a letter describing our affiliations within the [facility] and educated them about their right [...] patient have requested referrals to: ?? 1. [facility] [address] [place] [phone] ?? [address]. [address] [place] [address] Note routed to Worm Raiser who will communicate referrals to facilities and provide any required information. Home Health: If therapies recommend home w/ VNA, the patient has been provided a list of Home Health Agencies/DME vendors which serve their preferred geographic area. A letter describing our affiliations was reviewed with them and they were educated about their right to choose where referrals are placed. Patient requests referral to [facility]. PHONE: [phone] FAX: [phone] Referral routed to the Worm Raiser for matching with agency/vendor and to provide [...] Insured w/ Medicare. Gets medications filled at [facility] in [place], [place]. Son to transport at discharge Plan: Discharge dispo depending on patient's physical recovery; SNF vs home w/ VNA. A member of the Care Management team will continue to monitor progress, follow for continuity of care and assist with transition of care planning. Derian Pascual, NIURKA Pager: [phone] Plan of Care - Estefani Baeza RN [...] ??? Penicillins Pt doesn't remember reaction ??? Vgjbemk-Wid-Zif Reductase Inhibitors Stiff neck, upset stomach, back [...] noncontrast head CT and CT of the knik of Rbay at 1600 hrs. We will get a [...] ??? Penicillins Pt doesn't remember reaction ??? Picsmut-Bmq-Ofi Reductase Inhibitors Stiff neck, upset stomach, back [...] L Elbow flexion 5/5 R, 5/5 L Commercial Underwriter LE: 5/5 R, 5/5 L Hip flexion [...] PGY3 Neurology Resident 11/30/2019 Vascular Neurology Pager [phone] Standard [facility] Swallow Screen: [...] diet as medical provider deems appropriate. Consider STOCK PULLER consult for full evaluation and diet recommendations. [...] Afib admitted s/p thrombolysis and Cath-Stent to [facility] who developed R sided visual symptoms. [...] hours. Evan Mejia MD Department of Neurology [facility] Brief Op Note - Gretchen Yoon MD - 11/29/2019 8:38 PM EDT Brief Operative Note Patient Name: Angel Luis Salinas : [id number] MR#: [id number] Case Date: 11/29/2019 Surgeon: Surgeon(s) and Role: * Gretchen Yoon MD - Primary * Aidan Ward MD - Fellow Preoperative diagnosis: Inferior STEMI Postoperative diagnosis: Inferior STEMI Procedure(s) (LRB): CARDIAC CATHETERIZATION (N/A) Findings: Discrete 90% stenosis in the prox-to-mid RCA. Severe diffuse disease in the distal vessel. Discrete LCX stenosis in a non-culprit artery. S/P DESx3 in the ppikgfkj-qf-irxexh RCA. Aspiration thrombectomy performed, and integrellin bolus [...] are i n the results section. CT [place] [facility] [place] [facility] STAT 11/30/2019 4:36 Res [...] Signature Potassium 3.9 3.5 - 5.0 [facility] mmol/L [facility] LABORATORY Comment: Please note: ??Patients with WBC [...] Organization Address City/State/[place] [address] (ABNORMAL) Hemogram (12/08/2019 12:39 PM EDT) Analysis Performed At Patho logist Time Signature WBC 9.9 (H) 4.0 - 9.5 [facility] x[facility](3[facility] LABORATORY RBC 4.51 (L) 4.58 - [place] D[place] 5.54 [facility] x10(6)/[facility] LABORATORY Hemoglobin 13.0 (L) 13.7 - [place] 16.5 gm/dL [facility] LABORATORY Hematocrit 40.5 40.5 - [place] 48.5 % [facility] LABORATORY MCV 89.8 82.9 - [facility] D[facility] 93.1 [facility] LABORATORY MCH 28.8 27.5 - [place] 32.1 pg [facility] LABORATORY MCHC 32.1 32.0 - [place] 35.7 gm/dL [facility] LABORATORY Platelets 214 145 - 357 [facility] x10(3)/[facility] LABORATORY RDWSD 49.2 (H) 36.0 - [place] 45.0 [facility] LABORATORY RDWCV 15.1 (H) 11.4 - [place] 13.8 % [facility] LABORATORY MPV 12.1 7.6 - 12.9 [facility] nRBC % Auto 0.0 % [facility] LABORATORY nRBC Abs Auto 0.000 0.000 - [place] 0.000 [facility] x10(3)/[facility] LABORATORY Specimen Anatomical Collection Method Collection Time Receive d Time (Source) Location / / Volume Laterality Blood specimen 12/08/2019 12:39 0 (specimen) PM EDT 12:47 PM EDT Resulting Agency Comment Spec In Lab Gretchen Yoon MD HEMATOLOGY ORDERABLES Performing Organization Address City/State/ZIP Code Phon e Number [address] Hepatic Function Panel (12/08/2019 6:28 AM EDT) athologist Signature Total Protein 6.6 6.1 - 8.0 [facility] gm/dL [facility] LABORATORY Albumin 3.2 3.2 - 5.2 [place] gm/dL [facility] LABORATORY AST 18 0 - 39 [place] unit/L [facility] ALT 13 0 - 55 [place] unit/L [facility] LABORATORY Alk Phos 64 40 - 130 [facility] unit/L [facility] LABORATORY Total 0.4 0.2 - 1.3 [facility] Bilirubin mg/dL [facility] LABORATORY Bili, Direct 0.1 0.0 - 0.3 [facility] mg/dL [facility] LABORATORY Specimen Anatomical Collection Method Collection Time Receive d Time (Source) Location / / Volume Laterality Blood specimen Venous Draw / 12/08/2019 6:28 AM 2019 6:36 (specimen) Unknown EDT AM EDT Resulting Agency Comment Spec In Lab Riki Stevens MD CHEMISTRY ORDERABLES Performing Organization Address City/[facility]/ZIP Code Phon e Number [address] (ABNORMAL) TSH (12/08/2019 6:28 AM EDT) athologist Signature TSH 5.27 (H) 0.27 - 4.20 [facility] mcIU/mL [facility] LABORATORY Specimen Anatomical Collection Method Collection Time Receive d Time (Source) Location / / Volume Laterality Blood specimen Venous Draw / 12/08/2019 6:28 AM 2019 6:36 (specimen) Unknown EDT AM EDT Resulting Agency Comment Spec In Lab Darrell Glasgow MD CHEMISTRY ORDERABLES Performing Organization Address City/[facility]/ZIP Code Phon e Number [address] Potassium (12/08/2019 6:28 AM EDT) P athologist Signature Potassium 4.2 3.5 - 5.0 [facility] mmol/L [facility] LABORATORY Comment: Please note: ??Patients with WBC [...] Organization Address City/State/ZIP Code Phon e Number [place] [id number] HOSPITAL LABOR[address]ORY Drive (ABNORMAL) Differential, Automated (12/08/2019 12:43 AM EDT) Patholo gist Method Time Signature Neutrophils % 60.7 % [facility] LABORATORY Neutr Abs (ANC) 6.81 (H) 1.70 - [facility] 6.10 [facility] x10(3)/[facility] LABORATORY Lymphocytes % 23.4 % [facility] LABORATORY Lymphocytes Abs 2.6 0.9 - 3.2 [facility] x10(3)/[facility] LABORATORY Monocytes % 10.0 % [facility] LAB[facility]ORY Monocyte Abs 1.1 (H) 0.3 - 0.9 [facility] x10(3)/[facility] LABORATORY Eosinophils % 3.7 % [facility] Eosinophils Abs 0.4 0.0 - 0.4 [facility] x10(3)/[facility] LABORATORY Basophils % 1.2 % [facility] Basophils Abs 0.1 0.0 - 0.1 [facility] x10(3)/[facility] LABORATORY Immature Gran % 1.00 % [...] Organization Address City/State/[place] [address] (ABNORMAL) Hemogram (12/08/2019 12:43 AM EDT) Analysis Performed At Patho logist Time Signature WBC 11.2 (H) 4.0 - 9.5 [facility] x10(3)/[facility] LABORATORY RBC 4.46 (L) 4.58 - [facility] DOV 5.54 [facility] x10(6)/[facility] LABORATORY Hemoglobin 13.1 (L) 13.7 - [facility] 16.5 gm/dL [facility] LABORATORY Hematocrit 40.5 40.5 - [facility] 48.5 % [facility] LABORATORY MCV 90.8 82.9 - [facility] 93.1 [facility] LABORATORY MCH 29.4 27.5 - [facility] D[facility] 32.1 pg [facility] LABORATORY MCHC 32.3 32.0 - [facility] D[facility] 35.7 gm/dL [facility] LABORATORY Platelets 215 145 - 357 [facility] x10(3)/[facility] LABORATORY RDWSD 49.8 (H) 36.0 - [facility] DOV 45.0 [facility] LABORATORY RDWCV 15.2 (H) 11.4 - [facility] D[facility] 13.8 % [facility] LABORATORY MPV 12.3 7.6 - 12.9 [facility] LABORATORY nRBC % Auto 0.0 % [facility]OR[facility] nRBC Abs Auto 0.000 0.000 - [facility] D[facility] 0.000 [facility] x10(3)/[facility] LABORATORY Specimen Anatomical Collection Method Collection Time Receive d Time (Source) Location / / Volume Laterality Blood specimen 12/08/2019 12:43 0 (specimen) AM EDT 12:52 AM EDT Resulting Agency Comment Spec In Lab Riki Stevens MD HEMATOLOGY ORDERABLES Performing Organization Address City/State/ZIP Code Phon e Number [address] Magnesium (12/08/2019 12:43 AM EDT) athologist Signature Magnesium 1.01 0.69 - 1.07 [facility] mmol/L [facility] LABORATORY Specimen Anatomical Collection Method Collection Time Receive d Time (Source) Location / / Volume Laterality Blood specimen 12/08/2019 12:43 0 (specimen) AM EDT 12:52 AM EDT Resulting Agency Comment Spec In Lab Gretchen Yoon MD CHEMISTRY ORDERABLES Performing Organization Address City/State/ZIP [place] [address] (ABNORMAL) BMP w/fasting Glucose (12/08/2019 12:43 AM EDT) P athologist Signature Glucose 106 (H) 65 - 99 [facility] Fasting mg/dL [facility] LABORATORY Comment: ?Fasting* Glucose Interpretive C riteria [...] of Diabetes Mellitus, Position Statement from the [place] [employer]. ??Diabete s Care, Volume 33, Supplement 1, Jul 2009 BUN 14 10 - 20 mg/dL [facility] DOV [facility] LABORATORY Creatinine 1.16 0.80 - 1.50 mg/dL [facility] LABORATORY Sodium 134 (L) 135 - 145 mmol/L [facility] LABORATORY Potassium 4.0 3.5 - 5.0 mmol/L [facility] LABORATORY Comment: Please note: ??Patients with [...] LABORATORY Calcium 8.9 8.5 - 10.5 mg/dL [facility] LABORATORY Estimated GFR 62 >=60 mL/min/1.73 m?? [facility] Comment: The eGFR was calculated using the CKD-EP I equation. As with all creatinine based estimates of kidney function, eGFR values calculated with the CKD-EPI equation are not accurate in patients wi th acute kidney failure, extremes of body mass or the acutely ill. [email or web address] eGFR 72 >=60 mL/min/1.73 m?? [facility] LAB[facility]ORY Comment: The eGFR was calculated using the CKD-EP I equation. As with all creatinine based estimates of kidney function, eGFR values calculated with the CKD-EPI equation are not accurate in patients wi th acute kidney failure, extremes of body mass or the acutely ill. [email or web address] Specimen Anatomical Collection Method Collection Time Receive d Time (Source) Location / / Volume Laterality Blood specimen 12/08/2019 12:43 0 (specimen) AM EDT 12:52 AM EDT Resulting Agency Comment Spec In Lab Gretchen Yoon MD CHEMISTRY ORDERABLES Performing Organization Address City/State/ZIP Code Phon e Number [place] [id number]OSPITAL LAB[address]ORY [address] Heparin (unfractionated) Level (12/08/2019 12:43 AM EDT) athologist Signature Heparin UFH 0.60 IU/mL [facility] LABORATORY Comment: Guidelines for therapeutic unfractionate [...] Organization Address City/State/[place] [address] Potassium (12/07/2019 8:39 PM EDT) athologist Signature Potassium 4.1 3.5 - 5.0 [facility] mmol/L [facility] LABORATORY Comment: Please note: ??Patients with WBC [...] Organization Address City/State/ZIP Code Phon e Number [address] Potassium (12/07/2019 4:02 PM EDT) P athologist Signature Potassium 4.0 3.5 - 5.0 [facility] mmol/L [facility] LABORATORY Comment: Please note: ??Patients with WBC [...] Yoon MD CHEMISTRY ORDERABLES Performing Organization Address City/[facility]/ZIP [place] [address] (ABNORMAL) Hemogram (12/07/2019 4:02 PM EDT) Analysis Performed At Patho logist Time Signature WBC 17.4 (H) 4.0 - 9.5 [place] x10(3)/[facility] LABORATORY RBC 4.58 4.58 - [place] 5.54 [facility] x10(6)/[facility] LABORATORY Hemoglobin 13.5 (L) 13.7 - [place] 16.5 gm/dL [facility] LABORATORY Hematocrit 40.8 40.5 - [place] 48.5 % [facility] LABORATORY MCV 89.1 82.9 - [place] 93.1 [facility] LABORATORY MCH 29.5 27.5 - [place] 32.1 pg [facility] LABORATORY MCHC 33.1 32.0 - [place] 35.7 gm/dL [facility] LABORATORY Platelets 238 145 - 357 [place] [facility] x10(3)/[facility] LABORATORY RDWSD 48.8 (H) 36.0 - [place] 45.0 [facility] LABORATORY RDWCV 15.0 (H) 11.4 - [facility] D[facility] 13.8 % [facility] LABORATORY MPV 12.2 7.6 - 12.9 [place] [facility] LABORATORY nRBC % Auto 0.0 % [facility] nRBC Abs Auto 0.000 0.000 - [place] MONAE 0.000 [facility] x10(3)/[facility] LABORATORY Specimen Anatomical Collection Method Collection Time Receive d Time (Source) Location / / Volume Laterality Blood specimen 12/07/2019 4:02 PM 020 4:08 (specimen) EDT PM EDT Resulting Agency Comment Spec In Lab Gretchen Yoon MD HEMATOLOGY ORDERABLES Performing Organization Address City/[facility]/[place] [address] EKG 12 Lead (12/07/2019 [...] (Bezet) Calculated P -12 degrees MUSE SYSTEM Dequincy Calculated R 10 degrees MUSE SYSTEM Dequincy Calculated T -138 degrees MUSE SYSTEM Dequincy INTERPRETATION Supraventricular tachycardia MUSE SYSTEM Low voltage [...] Signature Potassium 4.2 3.5 - 5.0 [facility] mmol/L [facility] LABORATORY Comment: Please note: ??Patients with WBC [...] Lagos MD CHEMISTRY ORDERABLES Performing Organization Address [facility] [place] [address] Heparin (unfractionated) Level (12/07/2019 11:43 AM EDT) athologist Signature Heparin UFH 0.59 IU/mL [facility] LABORATORY Comment: Guidelines for therapeutic unfractionate [...] Lagos MD HEMATOLOGY ORDERABLES Performing Organization Address [facility] [place] [address] Heparin (unfractionated) Level (12/07/2019 5:20 AM EDT) P athologist Signature Heparin UFH 0.53 IU/mL [facility] LABORATORY Comment: Guidelines for therapeutic unfractionate [...] Organization Address City/State/[place] [address] (ABNORMAL) Differential, Automated (12/07/2019 5:20 AM EDT) Patholo gist Method Time Signature Neutrophils % 62.4 % [facility] Neutr Abs (ANC) 5.46 1.70 - [facility] 6.10 [facility] x10(3)/[facility] LABORATORY Lymphocytes % 20.3 % [facility] Lymphocytes Abs 1.8 0.9 - 3.2 [facility] x10(3)/[facility] LABORATORY Monocytes % 11.0 % [facility] Monocyte Abs 1.0 (H) 0.3 - 0.9 [facility] x10(3)/[facility] LABORATORY Eosinophils % 4.5 % [facility] Eosinophils Abs 0.4 0.0 - 0.4 [facility] x10(3)/[facility] LABORATORY Basophils % 0.9 % [facility] Basophils Abs 0.1 0.0 - 0.1 [facility] x10(3)/[facility] LABORATORY Immature Gran % 0.90 % ST [...] Organization Address City/State/ZIP [place] [address] (ABNORMAL) Hemogram (12/07/2019 5:20 AM EDT) Analysis Performed At Patho logist Time Signature WBC 8.7 4.0 - 9.5 [facility] x10(3)/[facility] LABORATORY RBC 4.20 (L) 4.58 - [facility] 5.54 [facility] x10(6)/[facility] LABORATORY Hemoglobin 12.3 (L) 13.7 - [facility] 16.5 gm/dL [facility] LABORATORY Hematocrit 37.4 (L) 40.5 - [facility] 48.5 % [facility] LABORATORY MCV 89.0 82.9 - [facility] 93.1 fL [facility] LABORATORY MCH 29.3 27.5 - [facility] 32.1 pg [facility] LABORATORY MCHC 32.9 32.0 - MELINA MONAE 35.7 gm/dL [facility] LABORATORY Platelets 181 145 - 357 MELINA MONAE x10(3)/[facility] LABORATORY RDWSD 47.7 (H) 36.0 - MELINA MONAE 45.0 [facility] LABORATORY RDWCV 14.8 (H) 11.4 - MELINA MONAE 13.8 % [facility] LABORATORY MPV 12.3 7.6 - 12.9 MELINA DOV [facility] LABORATORY nRBC % Auto 0.0 % [facility] LABORATORY nRBC Abs Auto 0.000 0.000 - MELINA MONAE 0.000 [facility] x10(3)/[facility] LABORATORY Specimen Anatomical Collection Method Collection Time Receive d Time (Source) Location / / Volume Laterality Blood specimen 12/07/2019 5:20 AM 020 5:37 (specimen) EDT AM EDT Resulting Agency Comment Spec In Lab Riki Stevens MD HEMATOLOGY ORDERABLES Performing Organization Address City/[facility]/ZIP Code Phon e Number [address] Magnesium (12/07/2019 5:20 AM EDT) P athologist Signature Magnesium 0.89 0.69 - 1.07 [facility]/L [facility] LABORATORY Specimen Anatomical Collection Method Collection Time Receive d Time (Source) Location / / Volume Laterality Blood specimen 12/07/2019 5:20 AM 020 5:37 (specimen) EDT AM EDT Resulting Agency Comment Spec In Lab Gretchen Yoon MD CHEMISTRY ORDERABLES Performing Organization Address City/[facility]/ZIP Code Phon e Number [address] (ABNORMAL) BMP w/fasting Glucose (12/07/2019 5:20 AM EDT) P athologist Signature Glucose 100 (H) 65 - 99 [facility] Fasting mg/dL [facility] LABORATORY Comment: ?Fasting* Glucose Interpretive C riteria [...] of Diabetes Mellitus, Position Statement from the [employer]. ??Diabete s Care, Volume 33, Supplement 1, Jul 2009 BUN 14 10 - 20 mg/dL [facility] LABORATORY Creatinine 0.83 0.80 - 1.50 mg/dL [facility] LABORATORY Sodium 135 135 - 145 mmol/L [facility] LABORATORY Potassium 3.8 3.5 - 5.0 mmol/L [facility] LABORATORY Comment: Please note: ??Patients with [...] LABORATORY Calcium 8.8 8.5 - 10.5 mg/dL [facility] LABORATORY Estimated GFR 87 >=60 mL/min/1.73 m?? [facility] LABORATORY Comment: The eGFR was calculated using the CKD-EP I equation. As with all creatinine based estimates of kidney function, eGFR values calculated with the CKD-EPI equation are not accurate in patients wi th acute kidney failure, extremes of body mass or the acutely ill. [email or web address] eGFR 101 >=60 mL/min/1.73 m?? [facility] LABORATORY Comment: The eGFR was calculated using the CKD-EP I equation. As with all creatinine based estimates of kidney function, eGFR values calculated with the CKD-EPI equation are not accurate in patients wi th acute kidney failure, extremes of body mass or the acutely ill. [email or web address] Specimen Anatomical Collection Method Collection Time Receive d Time (Source) Location / / Volume Laterality Blood specimen 12/07/2019 5:20 AM 020 5:37 (specimen) EDT AM EDT Resulting Agency Comment Spec In Lab Gretchen Yoon MD CHEMISTRY ORDERABLES Performing Organization Address [facility] [place] [address] Heparin (unfractionated) Level (12/06/2019 10:14 PM EDT) athologist Signature Heparin UFH 0.29 IU/mL [facility] LABORATORY Comment: Guidelines for therapeutic unfractionate [...] Lagos MD HEMATOLOGY ORDERABLES Performing Organization Address [facility] [place] [address] Head wo Contrast [...] For questions regarding this report, please contact [facility] number below. ? Narrative 12/06/2019 [...] 4.0 - 9.5 [facility] x[facility](3)/[facility] LABORATORY RBC 4.32 (L) 4.58 - [facility] DOV 5.54 [facility] x10(6)/[facility] LABORATORY Hemoglobin 12.5 (L) 13.7 - [facility] 16.5 gm/dL [facility] LABORATORY Hematocrit 38.4 (L) 40.5 - [facility] 48.5 % [facility] LABORATORY MCV 88.9 82.9 - [facility] 93.1 [facility] LABORATORY MCH 28.9 27.5 - [facility] DOV 32.1 pg [facility] LABORATORY MCHC 32.6 32.0 - [facility] 35.7 gm/dL [facility] LABORATORY Platelets 194 145 - 357 [facility] x10(3)/[facility] LABORATORY RDWSD 46.9 (H) 36.0 - [facility] 45.0 [facility] LABORATORY RDWCV 14.6 (H) 11.4 - [facility] 13.8 % [facility] LABORATORY MPV 11.9 7.6 - 12.9 [facility] LABORATORY nRBC % Auto 0.0 % [facility] LABORATORY nRBC Abs Auto 0.000 0.000 - [facility] DOV 0.000 [facility] x10(3)/[facility] LABORATORY Specimen Anatomical Collection Method Collection Time Receive d Time (Source) Location / / Volume Laterality Blood specimen 12/06/2019 4:20 PM 020 4:31 (specimen) EDT PM EDT Resulting Agency Comment Spec In Lab Gretchen Yoon MD HEMATOLOGY ORDERABLES Performing Organization Address City/State/[place] [address] Heparin (unfractionated) Level (12/06/2019 4:20 PM EDT) P athologist Signature Heparin UFH 0.30 IU/mL [facility] LABORATORY Comment: Guidelines for therapeutic unfractionate [...] Organization Address City/State/[place] [address] Heparin (unfractionated) Level (12/06/2019 10:02 AM EDT) athologist Signature Heparin UFH <0.04 IU/mL [facility] LABORATORY Comment: Guidelines for therapeutic unfractionate [...] Lagos MD HEMATOLOGY ORDERABLES Performing Organization Address City/[facility]/ZIP Code Phon e Number [address] Magnesium (12/06/2019 3:36 AM EDT) P athologist Signature Magnesium 0.86 0.69 - 1.07 [facility] mmol/L [facility] LABORATORY Specimen Anatomical Collection Method Collection Time Receive d Time (Source) Location / / Volume Laterality Blood specimen 12/06/2019 3:36 AM 020 3:45 (specimen) EDT AM EDT Resulting Agency Comment Spec In Lab Gretchen Yoon MD CHEMISTRY ORDERABLES Performing Organization Address City/[facility]/ZIP Code Phon e Number [address] (ABNORMAL) BMP w/fasting Glucose (12/06/2019 3:36 AM EDT) P athologist Signature Glucose 103 (H) 65 - 99 [facility] Fasting mg/dL [facility] LABORATORY Comment: ?Fasting* Glucose Interpretive C riteria [...] of Diabetes Mellitus, Position Statement from the [employer]. ??Diabete s Care, Volume 33, Supplement 1, Jul 2009 BUN 20 10 - 20 mg/dL [facility] LABORATORY Creatinine 0.88 0.80 - 1.50 mg/dL [facility] LABORATORY Sodium 136 135 - 145 mmol/L [facility] LABORATORY Potassium 4.0 3.5 - 5.0 mmol/L [facility] LABORATORY Comment: Please note: ??Patients with [...] LABORATORY Calcium 8.7 8.5 - 10.5 mg/dL [facility] LABORATORY Estimated GFR 85 >=60 mL/min/1.73 m?? [facility] LABORATORY Comment: The eGFR was calculated using the CKD-EP I equation. As with all creatinine based estimates of kidney function, eGFR values calculated with the CKD-EPI equation are not accurate in patients wi th acute kidney failure, extremes of body mass or the acutely ill. [email or web address] eGFR 99 >=60 mL/min/1.73 m?? [facility] LABORATORY Comment: The eGFR was calculated using the CKD-EP I equation. As with all creatinine based estimates of kidney function, eGFR values calculated with the CKD-EPI equation are not accurate in patients wi th acute kidney failure, extremes of body mass or the acutely ill. [email or web address] Specimen Anatomical Collection Method Collection Time Receive d Time (Source) Location / / Volume Laterality Blood specimen 12/06/2019 3:36 AM 020 3:45 (specimen) EDT AM EDT Resulting Agency Comment Spec In Lab Gretchen Yoon MD CHEMISTRY ORDERABLES Performing Organization Address City/State/ZIP Code Phon e Number [address] (ABNORMAL) Hemogram (12/06/2019 3:36 AM EDT) Analysis Performed At Patho logist Time Signature WBC 9.2 4.0 - 9.5 [facility] x10(3)/[facility] LABORATORY RBC 3.99 (L) 4.58 - M[place] DOV 5.54 [facility] x10(6)/[facility] LABORATORY Hemoglobin 11.9 (L) 13.7 - [facility] 16.5 gm/dL [facility] LABORATORY Hematocrit 35.5 (L) 40.5 - [facility] 48.5 % [facility] LABORATORY MCV 89.0 82.9 - [facility] 93.1 [facility] LABORATORY MCH 29.8 27.5 - M[place] DOV 32.1 pg [facility] LABORATORY MCHC 33.5 32.0 - [place] DOV 35.7 gm/dL [facility] LABORATORY Platelets 164 145 - 357 [facility] x10(3)/[facility] LABORATORY RDWSD 47.6 (H) 36.0 - [place] DOV 45.0 [facility] LABORATORY RDWCV 14.7 (H) 11.4 - [facility] 13.8 % [facility] LABORATORY MPV 11.9 7.6 - 12.9 [facility] LABORATORY nRBC % Auto 0.0 % [facility] LABORATORY nRBC Abs Auto 0.000 0.000 - [facility] DOV 0.000 [facility] x10(3)/[facility] LABORATORY Specimen Anatomical Collection Method Collection Time Receive d Time (Source) Location / / Volume Laterality Blood specimen 12/06/2019 3:36 AM 020 3:45 (specimen) EDT AM EDT Resulting Agency Comment Spec In Lab Gretchen Yoon MD HEMATOLOGY ORDERABLES Performing Organization Address City/[facility]/ZIP Code Phon e Number [address] (ABNORMAL) Differential, Automated (12/05/2019 10:52 PM EDT) Patholo gist Method Time Signature Neutrophils % 61.9 % [facility] LABORATORY Neutr Abs (ANC) 6.02 1.70 - [facility] 6.10 [facility] x10(3)/[facility] LABORATORY Lymphocytes % 22.4 % [facility] LABORATORY Lymphocytes Abs 2.2 0.9 - 3.2 [facility] x10(3)/[facility] LABORATORY Monocytes % 10.4 % [facility] LABORATORY Monocyte Abs 1.0 (H) 0.3 - 0.9 [facility] x10(3)/[facility] LABORATORY Eosinophils % 4.1 % [facility] LABORATORY Eosinophils Abs 0.4 0.0 - 0.4 [facility] x10(3)/[facility] LABORATORY Basophils % 0.7 % [facility] LABORATORY Basophils Abs 0.1 0.0 - 0.1 [facility] x10(3)/[facility] LABORATORY Immature Gran % 0.50 [...] Organization Address City/State/[place] [address] (ABNORMAL) Hemogram (12/05/2019 10:52 PM EDT) Analysis Performed At [facility] logist Time Signature WBC 9.7 (H) 4.0 - 9.5 [facility] x10(3)/[facility] LABORATORY RBC 4.07 (L) 4.58 - [place] DOV 5.54 [facility] x10(6)/[facility] LABORATORY Hemoglobin 11.9 (L) 13.7 - MELINA [place] 16.5 gm/dL [facility] LABORATORY Hematocrit 36.4 (L) 40.5 - M[place]INA [place] 48.5 % [facility] LABORATORY MCV 89.4 82.9 - [facility] 93.1 [facility] LABORATORY MCH 29.2 27.5 - M[place] DOV 32.1 pg [facility] LABORATORY MCHC 32.7 32.0 - [place] DOV 35.7 gm/dL [facility] LABORATORY Platelets 167 145 - 357 [facility] x10(3)/[facility] LABORATORY RDWSD 47.7 (H) 36.0 - [facility] 45.0 [facility] LABORATORY RDWCV 14.6 (H) 11.4 - [facility] 13.8 % [facility] LABORATORY MPV 12.1 7.6 - 12.9 [facility] LABORATORY nRBC % Auto 0.0 % [facility] LABORATORY nRBC Abs Auto 0.000 0.000 - [facility] 0.000 [facility] x10(3)/[facility] LABORATORY Specimen Anatomical Collection Method Collection Time Receive d Time (Source) Location / / Volume Laterality Blood specimen 12/05/2019 10:52 0 (specimen) PM EDT 10:59 PM EDT Resulting Agency Comment Spec In Lab Mandi Barrera MD HEMATOLOGY ORDERABLES Performing Organization Address City/State/[place] [address] Heparin (unfractionated) Level (12/05/2019 10:52 PM EDT) P athologist Signature Heparin UFH <0.04 IU/mL [facility] LABORATORY Comment: Guidelines for therapeutic unfractionate [...] Organization Address City/State/ZIP [place] [address] MRI Brain wwo Contrast [...] Signature WBC 8.7 4.0 - 9.5 [facility] x10(3)/[facility] LABORATORY RBC 4.17 (L) 4.58 - [facility] 5.54 [facility] x10(6)/[facility] LABORATORY Hemoglobin 12.4 (L) 13.7 - [facility] 16.5 gm/dL [facility] LABORATORY Hematocrit 37.0 (L) 40.5 - [facility] 48.5 % [facility] LABORATORY MCV 88.7 82.9 - [facility] 93.1 [facility] LABORATORY MCH 29.7 27.5 - [facility] 32.1 pg [facility] LABORATORY MCHC 33.5 32.0 - [facility] 35.7 gm/dL [facility] LABORATORY Platelets 173 145 - 357 [facility] x10(3)/[facility] LABORATORY RDWSD 47.3 (H) 36.0 - [facility] 45.0 [facility] LABORATORY RDWCV 14.6 (H) 11.4 - [facility] 13.8 % [facility] LABORATORY MPV 12.1 7.6 - 12.9 [facility] LABORATORY nRBC % Auto 0.0 % [facility] LABORATORY nRBC Abs Auto 0.000 0.000 - [facility] 0.000 [facility] x10(3)/[facility] LABORATORY Specimen Anatomical Collection Method Collection Time Receive d Time (Source) Location / / Volume Laterality Blood specimen 12/05/2019 1:00 PM 020 1:13 (specimen) EDT PM EDT Resulting Agency Comment Spec In Lab Gretchen Yoon MD HEMATOLOGY ORDERABLES Performing Organization Address City/State/[place] [address] EKG 12 Lead (12/05/2019 10:52 AM EDT) Component Value Ref Range Test Analysis Performed Pathologis t Method Time At Signature Ventricular rate 72 BPM MUSE SYSTEM Atrial Rate 72 BPM MUSE SYSTEM P-R Interval 138 ms MUSE SYSTEM QRS Duration 96 ms MUSE SYSTEM Q-T Interval 396 ms MUSE SYSTEM QTC Calculated 433 ms MUSE SYSTEM (Bezet) Calculated P Dequincy 65 degrees MUSE SYSTEM Calculated R Dequincy 13 degrees MUSE SYSTEM Calculated T Dequincy 0 degrees MUSE SYSTEM INTERPRETATION Sinus rhythm Occasional Premature ventricular complexe s MUSE SYSTEM Possible Inferior infarct (cited on or before 29-NOV-2019) Abnormal ECG When compared with ECG of 04-DEC-2019 10:43, Sinus rhythm has replaced Atrial fibrillation Vent. rate has decreased BY ??86 BPM Confirmed by MD Ceja Daniel ([id number]) on 12/05/2019 3:55:22 PM Specimen Anatomical Collection Method Collection Time Receive d Time (Source) Location / / Volume Laterality 12/05/2019 10:52 12/05/2019 3:55 AM EDT PM EDT Paris Lagos MD ECG ORDERABLES Performing Organization Address City/State/ZIP Code Phon e Number MUSE SYSTEM Duplex Study for DVT, Bilat legs (12/05/2019 7:00 AM EDT) Component Value Ref Test Analysis Performed At [facility] Range Method Time Signature VB Text Department: Vascular Surgery Lab VASCUBASE Report Patient: [id number] (ANGEL LUIS SALINAS) CPT: 90969 ICD10: I26.99 Referring Physician: GRETCHEN YOON ?? [...] Signature Magnesium 0.87 0.69 - 1.07 [facility] mmol/L [facility] LABORATORY Specimen Anatomical Collection Method Collection Time Receive d Time (Source) Location / / Volume Laterality Blood specimen 12/05/2019 4:18 AM 020 4:31 (specimen) EDT AM EDT Resulting Agency Comment Spec In Lab Gretchen Yoon MD CHEMISTRY ORDERABLES Performing Organization Address City/[facility]/ZIP [facility] [place] [address] (ABNORMAL) BMP w/fasting Glucose (12/05/2019 4:18 AM EDT) P athologist Signature Glucose 104 (H) 65 - 99 [facility] Fasting mg/dL [facility] LABORATORY Comment: ?Fasting* Glucose Interpretive C riteria [...] of Diabetes Mellitus, Position Statement from the [employer]. ??Diabete s Care, Volume 33, Supplement 1, Jul 2009 BUN 21 (H) 10 - 20 mg/dL [facility] LABORATORY Creatinine 1.02 0.80 - 1.50 mg/dL [facility] LABORATORY Sodium 136 135 - 145 mmol/L [facility] LABORATORY Potassium 3.9 3.5 - 5.0 mmol/L [facility] LABORATORY Comment: Please note: ??Patients with [...] LABORATORY Calcium 8.8 8.5 - 10.5 mg/dL [facility] LABORATORY Estimated GFR 73 >=60 mL/min/1.73 m?? [facility] LABORATORY Comment: The eGFR was calculated using the CKD-EP I equation. As with all creatinine based estimates of kidney function, eGFR values calculated with the CKD-EPI equation are not accurate in patients wi th acute kidney failure, extremes of body mass or the acutely ill. [email or web address] [email or web address] eGFR 84 >=60 mL/min/1.73 m?? [facility] LABORATORY Comment: The eGFR was calculated using the CKD-EP I equation. As with all creatinine based estimates of kidney function, eGFR values calculated with the CKD-EPI equation are not accurate in patients wi th acute kidney failure, extremes of body mass or the acutely ill. [email or web address] [email or web address] Specimen Anatomical Collection Method Collection Time Receive d Time (Source) Location / / Volume Laterality Blood specimen 12/05/2019 4:18 AM 020 4:31 (specimen) EDT AM EDT Resulting Agency Comment Spec In Lab Gretchen Yoon MD CHEMISTRY ORDERABLES Performing Organization Address City/State/[place] [address] (ABNORMAL) Hemogram (12/05/2019 4:18 AM EDT) Analysis Performed At Patho logist Time Signature WBC 8.6 4.0 - 9.5 [facility] x10(3)/[facility] LABORATORY RBC 4.28 (L) 4.58 - [place] DOV 5.54 [facility] x10(6)/[facility] LABORATORY Hemoglobin 12.4 (L) 13.7 - [facility] 16.5 gm/dL [facility] LABORATORY Hematocrit 37.3 (L) 40.5 - [facility] 48.5 % [facility] LABORATORY MCV 87.1 82.9 - [facility] 93.1 [facility] LABORATORY MCH 29.0 27.5 - [facility] 32.1 pg [facility] LABORATORY MCHC 33.2 32.0 - [facility] 35.7 gm/dL [facility] LABORATORY Platelets 163 145 - 357 [facility] x10(3)/[facility] LABORATORY RDWSD 46.4 (H) 36.0 - [facility] 45.0 [facility] LABORATORY RDWCV 14.4 (H) 11.4 - [facility] 13.8 % [facility] LABORATORY MPV 11.7 7.6 - 12.9 [facility] LABORATORY nRBC % Auto 0.0 % [facility] LABORATORY nRBC Abs Auto 0.000 0.000 - [facility] 0.000 [facility] x10(3)/[facility] LABORATORY Specimen Anatomical Collection Method Collection Time Receive d Time (Source) Location / / Volume Laterality Blood specimen 12/05/2019 4:18 AM 020 4:31 (specimen) EDT AM EDT Resulting Agency Comment Spec In Lab Gretchen Yoon MD HEMATOLOGY ORDERABLES Performing Organization Address City/State/[place] [address] Cardiac for Morphology [...] For questions regarding this report, please contact [facility] number below. ? Electronically signed by: Roselyn Luciano, [facility] ([phone]), at 12/04/2019 6:16 PM Narrative 12/04/2019 6:16 [...] from neck/greatest puja meter to back wall: [place], CAU 13: ??19 mm CORTES ??1, [...] from neck/greatest puja meter to back wall: [place], CAU 13: 19 mm CORTES 1, [...] WBC 8.9 4.0 - 9.5 [place] [facility] x10(3)/[facility] LABORATORY RBC 4.69 4.58 - [place] DOV 5.54 [facility] x10(6)/[facility] LABORATORY Hemoglobin 13.5 (L) 13.7 - [place] [facility] 16.5 gm/dL [facility] LABORATORY Hematocrit 41.7 40.5 - [place] [facility] 48.5 % [facility] LABORATORY MCV 88.9 82.9 - [place] 93.1 fL [facility] LABORATORY MCH 28.8 27.5 - [place] 32.1 pg [facility] LABORATORY MCHC 32.4 32.0 - [place] D[facility] 35.7 gm/dL [facility] LABORATORY Platelets 196 145 - 357 [place] [facility] x10(3)/[facility] LABORATORY RDWSD 46.7 (H) 36.0 - [place] MONAE 45.0 [facility] LABORATORY RDWCV 14.5 (H) 11.4 - [place] 13.8 % [facility] LABORATORY MPV 12.1 7.6 - 12.9 [place] MONAE [facility] LABORATORY nRBC % Auto 0.0 % [facility] LABORATORY nRBC Abs Auto 0.000 0.000 - [place] 0.000 [facility] [facility] x10(3[facility] LABORATORY Specimen Anatomical Collection Method Collection Time Receive d Time (Source) Location / / Volume Laterality Blood specimen 12/04/2019 12:55 0 1:06 (specimen) PM EDT PM EDT Resulting Agency Comment Spec In Lab Gretchen Yoon MD HEMATOLOGY ORDERABLES Performing Organization Address City/[facility]/ZIP [place] [address] EKG 12 Lead (12/04/2019 10:43 AM EDT) Component Value Ref Range Test Analysis Performed Pathologis t Method Time At Signature Ventricular rate 158 BPM MUSE SYSTEM Atrial Rate 102 BPM MUSE SYSTEM QRS Duration 92 ms MUSE SYSTEM Q-T Interval 294 ms MUSE SYSTEM QTC Calculated 476 ms MUSE SYSTEM (Bezet) Calculated R Dequincy 17 degrees MUSE SYSTEM Calculated T Dequincy 90 degrees MUSE SYSTEM INTERPRETATION Atrial fibrillation with rapid ventricular response MUSE SYSTEM Possible Inferior infarct (cited on or before 29-NOV-2019) Abnormal ECG When compared with ECG of 30-NOV-2019 21:07, Atrial fibrillation has replaced Sinus rhythm Vent. rate has increased BY ??65 BPM Confirmed by MD Brenna, Faustino ([id number]) on 12/05/2019 8:59:44 AM Specimen Anatomical Collection Method Collection Time Receive d Time (Source) Location / / Volume Laterality 12/04/2019 10:43 12/05/2019 8:59 AM EDT AM EDT Gretchen Yoon MD ECG ORDERABLES Performing Organization Address City/State/ZIP Code Phon e Number MUSE SYSTEM (ABNORMAL) Magnesium (12/04/2019 4:28 AM EDT) P athologist Signature Magnesium 1.17 (H) 0.69 - 1.07 [facility] mmol/L [facility] LABORATORY Specimen Anatomical Collection Method Collection Time Receive d Time (Source) Location / / Volume Laterality Blood specimen 12/04/2019 4:28 AM 020 4:40 (specimen) EDT AM EDT Resulting Agency Comment Spec In Lab Gretchen Yoon MD CHEMISTRY ORDERABLES Performing Organization Address City/State/[place] [address] (ABNORMAL) BMP w/fasting Glucose (12/04/2019 4:28 AM EDT) athologist Signature Glucose 108 (H) 65 - 99 [facility] Fasting mg/dL [facility] LABORATORY Comment: ?Fasting* Glucose Interpretive C riteria [...] of Diabetes Mellitus, Position Statement from the [employer]. ??Diabete s Care, Volume 33, Supplement 1, Jul 2009 BUN 19 10 - 20 mg/dL [facility] LABORATORY Creatinine 0.89 0.80 - 1.50 mg/dL [facility] LABORATORY Sodium 135 135 - 145 mmol/L [facility] LABORATORY Potassium 4.2 3.5 - 5.0 mmol/L [facility] LABORATORY Comment: Please note: ??Patients with [...] LABORATORY Calcium 8.5 8.5 - 10.5 mg/dL [facility] LABORATORY Estimated GFR 85 >=60 mL/min/1.73 m?? [facility] LABORATORY Comment: The eGFR was calculated using the CKD-EP I equation. As with all creatinine based estimates of kidney function, eGFR values calculated with the CKD-EPI equation are not accurate in patients wi th acute kidney failure, extremes of body mass or the acutely ill. [email or web address] eGFR 98 >=60 mL/min/1.73 m?? [facility] LABORATORY Comment: The eGFR was calculated using the CKD-EP I equation. As with all creatinine based estimates of kidney function, eGFR values calculated with the CKD-EPI equation are not accurate in patients wi th acute kidney failure, extremes of body mass or the acutely ill. [email or web address] Specimen Anatomical Collection Method Collection Time Receive d Time (Source) Location / / Volume Laterality Blood specimen 12/04/2019 4:28 AM 020 4:40 (specimen) EDT AM EDT Resulting Agency Comment Spec In Lab Gretchen Yoon MD CHEMISTRY ORDERABLES Performing Organization Address City/State/[place] [address] (ABNORMAL) Hemogram (12/04/2019 4:28 AM EDT) Analysis Performed At Patho logist Time Signature WBC 7.8 4.0 - 9.5 [facility] x10(3)/[facility] LABORATORY RBC 4.10 (L) 4.58 - [facility] 5.54 [facility] x10(6)/[facility] LABORATORY Hemoglobin 12.0 (L) 13.7 - [facility] 16.5 gm/dL [facility] LABORATORY Hematocrit 36.5 (L) 40.5 - [facility] 48.5 % [facility] LABORATORY MCV 89.0 82.9 - [facility] 93.1 fL [facility] LABORATORY MCH 29.3 27.5 - MELINA MONAE 32.1 pg [facility] LABORATORY MCHC 32.9 32.0 - MELINA MONAE 35.7 gm/dL [facility] LABORATORY Platelets 151 145 - 357 MELINA VILLANUEVACK x10(3)/[facility] LABORATORY RDWSD 46.9 (H) 36.0 - MELINA MONAE 45.0 [facility] LABORATORY RDWCV 14.4 (H) 11.4 - MELINA MONAE 13.8 % [facility] LABORATORY MPV 12.2 7.6 - 12.9 MELINA MONAE fL [facility] LABORATORY nRBC % Auto 0.0 % [facility] LABORATORY nRBC Abs Auto 0.000 0.000 - MELINA MONAE 0.000 [facility] x10(3)/[facility] LABORATORY Specimen Anatomical Collection Method Collection Time Receive d Time (Source) Location / / Volume Laterality Blood specimen 12/04/2019 4:28 AM 020 4:40 (specimen) EDT AM EDT Resulting Agency Comment Spec In Lab Gretchen Yoon MD HEMATOLOGY ORDERABLES Performing Organization Address City/[facility]/ZIP Code Phon e Number [address] Potassium (12/03/2019 7:55 PM EDT) athologist Signature Potassium 3.9 3.5 - 5.0 [facility]/L [facility] LABORATORY Comment: Please note: ??Patients with WBC [...] Yoon MD CHEMISTRY ORDERABLES Performing Organization Address City/[facility]/ZIP [facility] Phon e Number [address] Potassium (12/03/2019 1:57 PM EDT) athologist Signature Potassium 3.7 3.5 - 5.0 [facility] mmol/L [facility] LABORATORY Comment: Please note: ??Patients with WBC [...] Organization Address City/State/[place] [address] (ABNORMAL) Hemogram (12/03/2019 1:57 PM EDT) Analysis Performed At Patho logist Time Signature WBC 8.8 4.0 - 9.5 MELINA DOV x10(3)/[facility] LABORATORY RBC 4.27 (L) 4.58 - MELINA DOV 5.54 [facility] x10(6)/[facility] LABORATORY Hemoglobin 12.5 (L) 13.7 - MELINA DOV 16.5 gm/dL [facility] LABORATORY Hematocrit 37.5 (L) 40.5 - MELINA DOV 48.5 % [facility] LABORATORY MCV 87.8 82.9 - MELINA DOV 93.1 [facility] LABORATORY MCH 29.3 27.5 - MELINA DOV 32.1 pg [facility] LABORATORY MCHC 33.3 32.0 - MELINA DOV 35.7 gm/dL [facility] LABORATORY Platelets 158 145 - 357 MELINA DOV x10(3)/[facility] LABORATORY RDWSD 46.9 (H) 36.0 - MELINA DOV 45.0 [facility] LABORATORY RDWCV 14.5 (H) 11.4 - MELINA DOV 13.8 % [facility] LABORATORY MPV 12.2 7.6 - 12.9 MLEINA DOV [facility] LABORATORY nRBC % Auto 0.0 % [facility] LABORATORY nRBC Abs Auto 0.000 0.000 - [facility] 0.000 [facility] x10(3[facility] LABORATORY Specimen Anatomical Collection Method Collection Time Receive d Time (Source) Location / / Volume Laterality Blood specimen 12/03/2019 1:57 PM 020 2:21 (specimen) EDT PM EDT Resulting Agency Comment Spec In Lab Gretchen Yoon MD HEMATOLOGY ORDERABLES Performing Organization Address City/State/ZIP Code Phon e Number [address] Magnesium (12/03/2019 4:02 AM EDT) P athologist Signature Magnesium 0.79 0.69 - 1.07 [facility] mmol/L [facility] LABORATORY Specimen Anatomical Collection Method Collection Time Receive d Time (Source) Location / / Volume Laterality Blood specimen 12/03/2019 4:02 AM 020 4:16 (specimen) EDT AM EDT Resulting Agency Comment Spec In Lab Gretchen Yoon MD CHEMISTRY ORDERABLES Performing Organization Address City/State/ZIP [place] [address] (ABNORMAL) BMP w/fasting Glucose (12/03/2019 4:02 AM EDT) P athologist Signature Glucose 100 (H) 65 - 99 [facility] Fasting mg/dL [facility] LABORATORY Comment: ?Fasting* Glucose Interpretive C riteria [...] of Diabetes Mellitus, Position Statement from the [employer]. ??Diabete s Care, Volume 33, Supplement 1, Jul 2009 BUN 17 10 - 20 mg/dL [facility] LABORATORY Creatinine 0.95 0.80 - 1.50 mg/dL [facility] LABORATORY Sodium 136 135 - 145 mmol/L [facility] LABORATORY Potassium 3.4 (L) 3.5 - 5.0 mmol/L [facility] LABORATORY Comment: Please note: ??Patients with [...] Calcium 8.3 (L) 8.5 - 10.5 mg/dL [facility] LABORATORY Estimated GFR 79 >=60 mL/min/1.73 m?? [facility] LABORATORY Comment: The eGFR was calculated using the CKD-EP I equation. As with all creatinine based estimates of kidney function, eGFR values calculated with the CKD-EPI equation are not accurate in patients wi th acute kidney failure, extremes of body mass or the acutely ill. [email or web address] eGFR 92 >=60 mL/min/1.73 m?? [facility] LABORATORY Comment: The eGFR was calculated using the CKD-EP I equation. As with all creatinine based estimates of kidney function, eGFR values calculated with the CKD-EPI equation are not accurate in patients wi th acute kidney failure, extremes of body mass or the acutely ill. [email or web address] Specimen Anatomical Collection Method Collection Time Receive d Time (Source) Location / / Volume Laterality Blood specimen 12/03/2019 4:02 AM 020 4:16 (specimen) EDT AM EDT Resulting Agency Comment Spec In Lab Gretchen Yoon MD CHEMISTRY ORDERABLES Performing Organization Address City/State/[place] [address] (ABNORMAL) Hemogram (12/03/2019 4:02 AM EDT) Analysis Performed At Patho logist Time Signature WBC 9.1 4.0 - 9.5 [facility] x10(3)/[facility] LABORATORY RBC 4.01 (L) 4.58 - MELINA MARSHDOV 5.54 [facility] x10(6)/[facility] LABORATORY Hemoglobin 11.8 (L) 13.7 - [facility] 16.5 gm/dL [facility] LABORATORY Hematocrit 35.6 (L) 40.5 - [facility] 48.5 % [facility] LABORATORY MCV 88.8 82.9 - [facility] 93.1 [facility] LABORATORY MCH 29.4 27.5 - [facility] 32.1 pg [facility] LABORATORY MCHC 33.1 32.0 - [facility] 35.7 gm/dL [facility] LABORATORY Platelets 130 (L) 145 - 357 [facility] x10(3)/[facility] LABORATORY RDWSD 46.6 (H) 36.0 - [facility] 45.0 [facility] LABORATORY RDWCV 14.4 (H) 11.4 - [facility] 13.8 % [facility] LABORATORY MPV 12.4 7.6 - 12.9 [facility] LABORATORY nRBC % Auto 0.0 % [facility] LABORATORY nRBC Abs Auto 0.000 0.000 - [facility] 0.000 [facility] x10(3)/[facility] LABORATORY Specimen Anatomical Collection Method Collection Time Receive d Time (Source) Location / / Volume Laterality Blood specimen 12/03/2019 4:02 AM 020 4:16 (specimen) EDT AM EDT Resulting Agency Comment Spec In Lab Gretchen Yoon MD HEMATOLOGY ORDERABLES Performing Organization Address City/State/[place] [address] XR Chest One View [...] 4.0 - 9.5 [facility] x[facility](3[facility] LABORATORY RBC 4.00 (L) 4.58 - [facility] DOV 5.54 [facility] x10(6)/[facility] LABORATORY Hemoglobin 11.9 (L) 13.7 - [facility] 16.5 gm/dL [facility] LABORATORY Hematocrit 35.7 (L) 40.5 - [facility] 48.5 % [facility] LABORATORY MCV 89.3 82.9 - [facility] 93.1 [facility] LABORATORY MCH 29.8 27.5 - [facility] 32.1 pg [facility] LABORATORY MCHC 33.3 32.0 - [facility] 35.7 gm/dL [facility] LABORATORY Platelets 120 (L) 145 - 357 [facility] x10(3)/[facility] LABORATORY RDWSD 47.5 (H) 36.0 - [facility] 45.0 [facility] LABORATORY RDWCV 14.6 (H) 11.4 - [facility] 13.8 % [facility] LABORATORY MPV 12.0 7.6 - 12.9 [facility] LABORATORY nRBC % Auto 0.0 % [facility] LABORATORY nRBC Abs Auto 0.000 0.000 - [facility] 0.000 [facility] x10(3)/[facility] LABORATORY Specimen Anatomical Collection Method Collection Time Receive d Time (Source) Location / / Volume Laterality Blood specimen 12/02/2019 12:50 0 1:22 (specimen) PM EDT PM EDT Resulting Agency Comment Spec In Lab Gretchen Yoon MD HEMATOLOGY ORDERABLES Performing Organization Address City/State/[place] [address] Blue Tube HOLD (12/02/2019 4:55 AM EDT) P athologist Signature Blue Hold Sample in [facility] lab. [facility] LABORATORY Specimen Anatomical Collection Method Collection Time Receive d Time (Source) Location / / Volume Laterality Blood specimen Venous Draw / 12/02/2019 4:55 AM 2019 5:03 (specimen) Unknown EDT AM EDT Darrell Glasgow MD HEMATOLOGY ORDERABLES Performing Organization Address City/State/ZIP Code Phon e Number [address] Magnesium (12/02/2019 4:55 AM EDT) athologist Signature Magnesium 0.85 0.69 - 1.07 [facility] mmol/L [facility] LABORATORY Specimen Anatomical Collection Method Collection Time Receive d Time (Source) Location / / Volume Laterality Blood specimen 12/02/2019 4:55 AM 020 5:02 (specimen) EDT AM EDT Resulting Agency Comment Spec In Lab Gretchen Yoon MD CHEMISTRY ORDERABLES Performing Organization Address City/State/ZIP [place] [address] (ABNORMAL) BMP w/fasting Glucose (12/02/2019 4:55 AM EDT) athologist Signature Glucose 114 (H) 65 - 99 [facility] Fasting mg/dL [facility] LABORATORY Comment: ?Fasting* Glucose Interpretive C riteria [...] of Diabetes Mellitus, Position Statement from the [employer]. ??Diabete s Care, Volume 33, Supplement 1, Jul 2009 BUN 13 10 - 20 mg/dL [facility] LABORATORY Creatinine 0.93 0.80 - 1.50 mg/dL [facility] LABORATORY Sodium 135 135 - 145 mmol/L [facility] LABORATORY Potassium 3.7 3.5 - 5.0 mmol/L [facility] LABORATORY Comment: Please note: ??Patients with [...] Calcium 8.1 (L) 8.5 - 10.5 mg/dL [facility] LABORATORY Estimated GFR 81 >=60 mL/min/1.73 m?? [facility]ORATORY Comment: The eGFR was calculated using the CKD-EP I equation. As with all creatinine based estimates of kidney function, eGFR values calculated with the CKD-EPI equation are not accurate in patients wi th acute kidney failure, extremes of body mass or the acutely ill. [email or web address] eGFR 94 >=60 mL/min/1.73 m?? [facility] LABORATORY Comment: The eGFR was calculated using the CKD-EP I equation. As with all creatinine based estimates of kidney function, eGFR values calculated with the CKD-EPI equation are not accurate in patients wi th acute kidney failure, extremes of body mass or the acutely ill. [email or web address] Specimen Anatomical Collection Method Collection Time Receive d Time (Source) Location / / Volume Laterality Blood specimen 12/02/2019 4:55 AM 020 5:02 (specimen) EDT AM EDT Resulting Agency Comment Spec In Lab Gretchen Yoon MD CHEMISTRY ORDERABLES Performing Organization Address City/State/[place] [address] (ABNORMAL) Hemogram (12/02/2019 4:55 AM EDT) Analysis Performed At Patho logist Time Signature WBC 9.3 4.0 - 9.5 [facility] x[facility](3[facility] LABORATORY RBC 3.71 (L) 4.58 - MELINA DOV 5.54 [facility] x10(6)/[facility] LABORATORY Hemoglobin 10.8 (L) 13.7 - [facility] 16.[facility] gm/dL [facility] LABORATORY Hematocrit 33.1 (L) 40.5 - [facility] 48.5 % [facility] LABORATORY MCV 89.2 82.9 - [facility] 93.1 [facility] LABORATORY MCH 29.1 27.5 - [facility] 32.1 pg [facility] LABORATORY MCHC 32.6 32.0 - [facility] 35.7 gm/dL [facility] LABORATORY Platelets 93 (L) 145 - 357 [facility] x10(3)/[facility] LABORATORY RDWSD 47.1 (H) 36.0 - [facility] 45.0 [facility] LABORATORY RDWCV 14.6 (H) 11.4 - [facility] 13.8 % [facility] LABORATORY MPV 11.7 7.6 - 12.9 [facility] LABORATORY nRBC % Auto 0.0 % [facility] LABORATORY nRBC Abs Auto 0.000 0.000 - [facility] 0.000 [facility] x10(3)/[facility] LABORATORY Specimen Anatomical Collection Method Collection Time Receive d Time (Source) Location / / Volume Laterality Blood specimen 12/02/2019 4:55 AM 020 5:02 (specimen) EDT AM EDT Resulting Agency Comment Spec In Lab Gretchen Yoon MD HEMATOLOGY ORDERABLES Performing Organization Address City/State/[place] [address] Transfuse 1 unit platelets, [...] For questions regarding this report, please contact [facility] number below. ? Electronically signed by: Angel Luis Barboza MD, [facility] ([phone]), at 12/01/2019 8:02 PM Narrative 12/01/2019 8:02 [...] For questions regarding this report, please contact [facility] number below. Electronically signed by: Angel Luis Barboza MD, [facility] ([phone]), at 12/01/2019 8:02 PM Gretchen Yoon MD IMG MRI ORDERABLES Prepare Platelets, Apheresis (12/01/2019 6:20 PM EDT) P athologist Signature Dispensed? Yes [facility] LABORATORY Specimen Anatomical Collection Method Collection Time Receive d Time (Source) Location / / Volume Laterality Blood specimen 12/01/2019 6:20 PM 020 6:18 (specimen) EDT PM EDT Gretchen Yoon MD BLOOD BANK ORDERABLES Performing Organization Address City/[facility]/[place] [address] Duplex for DVT, Arm, Unilat (12/01/2019 5:08 PM EDT) Component Value Ref Test Analysis Performed At Patholo gist Range Method Time Signature VB Text Department: Vascular Surgery Lab VASCUBASE Report Patient: [id number] (ANGEL LUIS SALINAS) CPT: 26207 ICD10: R60.0 Referring Physician: GRETCHEN YOON ?? [...] For questions regarding this report, please contact [facility] number below. ? Electronically signed by: Merari Collins, [facility] ([phone]), at 12/01/2019 3:53 PM Narrative 12/01/2019 3:53 PM EDT EXAMINATION: CT HEAD WO CONTRAST (GENERIC) CLINICAL HISTORY: Headache, intracranial hemorrhage suspected Serial CT scan: please assess for propag ation of known ICH noted on prior Head CT/imaging. TECHNIQUE: CT head performed without intravenous co ntrast administration. COMPARISON: Head CT 11/30/2019. CT angiogram of the knik of [place] 11/01. FINDINGS: Ventricles are normal [...] Head CT 11/30/2019. CT angiogram of the [place] of [place] 11/01. FINDINGS: Ventricles are normal [...] Scan, Peripheral Blood (12/01/2019 12:51 PM EDT) [facility] Method Time Signature Plat Estimate Decreased [facility] RBC Morphology Normal [facility] Giant Less than 1 /HPF [facility] Platelets [facility] LABORATORY Specimen Anatomical Collection Method Collection Time Receive d Time (Source) Location / / Volume Laterality Blood specimen 12/01/2019 12:51 0 1:05 (specimen) PM EDT PM EDT Resulting Agency Comment Spec In Lab Riki Stevens MD HEMATOLOGY ORDERABLES Performing Organization Address City/State/ZIP [place] [address] (ABNORMAL) Differential, Automated (12/01/2019 12:51 PM EDT) [facility] Method Time Signature Neutrophils % 74.9 % [facility] Neutr Abs (ANC) 6.34 (H) 1.70 - [facility] 6.10 [facility] x10(3)/[facility] LABORATORY Lymphocytes % 11.4 % [facility] Lymphocytes Abs 1.0 0.9 - 3.2 [facility] x10(3)/[facility] LABORATORY Monocytes % 12.4 % [facility] Monocyte Abs 1.0 (H) 0.3 - 0.9 [facility] x10(3)/[facility] LABORATORY Eosinophils % 0.4 % [facility] Eosinophils Abs 0.0 0.0 - 0.4 [facility] x10(3)/[facility] LABORATORY Basophils % 0.4 % [facility] Basophils Abs 0.0 0.0 - 0.1 [facility] x10(3)/[facility] LABORATORY Immature Gran % 0.50 % [...] Pita Gran Abs 0.04 0.00 - 0.04 x10(3)/[facility] LABORATORY Specimen Anatomical Collection Method Collection Time Receive d Time (Source) Location / / Volume Laterality Blood specimen 12/01/2019 12:51 0 1:05 (specimen) PM EDT PM EDT Resulting Agency Comment Spec In Lab Riki Stevens MD HEMATOLOGY ORDERABLES Performing Organization Address City/State/ZIP Code Phon e Number [place] [id number]OS[address] LABOR[address]ORY Drive (ABNORMAL) Hemogram (12/01/2019 12:51 PM EDT) Analysis Performed At Patho logist Time Signature WBC 8.4 4.0 - 9.5 [facility] LABORATORY RBC 3.69 (L) 4.58 - [facility] 5.54 [facility] x10(6)/[facility] LABORATORY Hemoglobin 10.8 (L) 13.7 - [facility] 16.5 gm/dL [facility] LABORATORY Hematocrit 32.4 (L) 40.5 - [facility] 48.5 % [facility] LABORATORY MCV 87.8 82.9 - [facility] 93.1 [facility] LABORATORY MCH 29.3 27.5 - MELINA DOV 32.1 pg [facility]ORATORY MCHC 33.3 32.0 - [facility] DOV 35.7 gm/dL [facility] Platelets 72 (L) 145 - 357 [facility] x[facility](3[facility] LABORATORY RDWSD 47.2 (H) 36.0 - [facility] 45.0 [facility] LABORATORY RDWCV 14.6 (H) 11.4 - [facility] DOV 13.8 % [facility] MPV 12.2 7.6 - 12.9 [facility] LABORATORY nRBC % Auto 0.0 % [facility] nRBC Abs Auto 0.000 0.000 - [facility] 0.000 [facility] x10(3)/[facility] LABORATORY Specimen Anatomical Collection Method Collection Time Receive d Time (Source) Location / / Volume Laterality Blood specimen 12/01/2019 12:51 0 1:05 (specimen) PM EDT PM EDT Resulting Agency Comment Spec In Lab Riki Stevens MD HEMATOLOGY ORDERABLES Performing Organization Address City/State/ZIP Code Phon e Number [address] (ABNORMAL) Coox2 (12/01/2019 11:42 AM EDT) Analysis Performed At Patho logist Time Signature pO2 Coox [address] [facility] Hgb Blood Gas 11.6 (L) 13.7 - [facility] 16.5 gm/dL [facility] O2HB Coox 60.8 % [facility] COHB Coox 0.6 % [facility] Comment: Nonsmokers: 0.5-1.5% COHB Smokers: Variable, but usually less than 10% Toxic: 20-30% COHB Lethal: Greater than 60% COHB METHB Coox 0.6 <=1.5 % [facility] Source Coox Mixed Venous [facility] Specimen Anatomical Collection Method Collection Time Receive d Time (Source) Location / / Volume Laterality Blood specimen 12/01/2019 11:42 0 (specimen) AM EDT 11:42 AM EDT Gretchen Yoon MD CHEMISTRY ORDERABLES Performing Organization Address City/State/[place] [address] Sedimentation rate (12/01/2019 3:55 AM EDT) P athologist Signature Sed Rate 25 3 - 46 [facility] mm/hr [facility] Comment: Effective June 11, 2019 new [...] Winn MD HEMATOLOGY ORDERABLES Performing Organization Address City/[facility]/ZIP [place] [address] (ABNORMAL) CRP, acute inflammation [...] Winn MD CHEMISTRY ORDERABLES Performing Organization Address City/[facility]/ZIP Code Phon e Number [address] ABORH Recheck Status (12/01/2019 3:55 AM EDT) [facility] Method Time Signature ABORH Recheck Order Placed [facility] LABORATORY ABORH Type Complete [facility] LABORATORY Specimen Anatomical Collection Method Collection Time Receive d Time (Source) Location / / Volume Laterality Blood specimen 12/01/2019 3:55 AM 020 4:15 (specimen) EDT AM EDT Resulting Agency Comment Spec In Lab Lewis Gee MD BLOOD BANK ORDERABLES Performing Organization Address City/[facility]/ZIP [place] [address] Antibody screen (12/01/2019 3:55 AM EDT) Patholo gist Method Time Signature Ab Screen Negative [facility] LABORATORY Expires at 12/04/2019 [facility] [id number] on: [facility] Specimen Anatomical Collection Method Collection Time Receive d Time (Source) Location / / Volume Laterality Blood specimen 12/01/2019 3:55 AM 020 4:15 (specimen) EDT AM EDT Resulting Agency Comment Spec In Lab Lewis Gee MD BLOOD BANK ORDERABLES Performing Organization Address City/State/ZIP [place] [address] ABO/Rh Typing (12/01/2019 3:55 AM EDT) athologist Signature ABORh Type AB Pos [facility] Specimen Anatomical Collection Method Collection Time Receive d Time (Source) Location / / Volume Laterality Blood specimen 12/01/2019 3:55 AM 020 4:15 (specimen) EDT AM EDT Resulting Agency Comment Spec In Lab Lewis Gee MD BLOOD BANK ORDERABLES Performing Organization Address City/[facility] [place] [address] (ABNORMAL) Troponin (12/01/2019 3:55 AM EDT) athologist Signature Troponin-T 4.35 (H) 0.00 - [facility] 0.00 ng/mL [facility] Comment: result rechecked-slw The 99th percentile for Troponin T is le ss than 0.01 ng/mL, any detectable cTnT concentration using this assay should be considered elevated. According to the third universal definit ion of myocardial infarction the following criteria with a clinical prese ntation consistent with acute myocardial ischemia meets the diagnosis for a myocardial infarction (PR). Detection of a rise and/or fall of [...] additional sample may be indicated. Reference: Third [place] Definition of Myocardial Infarction. Journal of the [place] [employer] 2012;60:1581-98 Specimen Anatomical Collection Method Collection Time Receive d Time (Source) Location / / Volume Laterality Blood specimen 12/01/2019 3:55 AM 020 4:00 (specimen) EDT AM EDT Resulting Agency Comment Spec In Lab Gretchen Yoon MD CHEMISTRY ORDERABLES Performing Organization Address City/State/ZIP Code Phon e Number [address] Magnesium (12/01/2019 3:55 AM EDT) P athologist Signature Magnesium 0.96 0.69 - 1.07 [facility] mmol/L [facility] Specimen Anatomical Collection Method Collection Time Receive d Time (Source) Location / / Volume Laterality Blood specimen 12/01/2019 3:55 AM 020 4:00 (specimen) EDT AM EDT Resulting Agency Comment Spec In Lab Gretchen Yoon MD CHEMISTRY ORDERABLES Performing Organization Address City/[facility]/ZIP [place] [address] (ABNORMAL) BMP w/fasting Glucose (12/01/2019 3:55 AM EDT) P athologist Signature Glucose 148 (H) 65 - 99 [facility] Fasting mg/dL [facility] Comment: ?Fasting* Glucose Interpretive C riteria [...] of Diabetes Mellitus, Position Statement from the [place] [employer]. ??Diabete s Care, Volume 33, Supplement 1, Jul 2009 BUN 11 10 - 20 mg/dL [facility] LABORATORY Creatinine 0.96 0.80 - 1.50 mg/dL [facility] LABORATORY Sodium 132 (L) 135 - 145 mmol/L [facility] Potassium 4.0 3.5 - 5.0 mmol/L [facility] Comment: Please note: ??Patients with [...] Calcium 7.6 (L) 8.5 - 10.5 mg/dL [facility] Estimated GFR 78 >=60 mL/min/1.73 m?? [facility] Comment: The eGFR was calculated using the CKD-EP I equation. As with all creatinine based estimates of kidney function, eGFR values calculated with the CKD-EPI equation are not accurate in patients wi th acute kidney failure, extremes of body mass or the acutely ill. [email or web address] eGFR 91 >=60 mL/min/1.73 m?? [facility] Comment: The eGFR was calculated using the CKD-EP I equation. As with all creatinine based estimates of kidney function, eGFR values calculated with the CKD-EPI equation are not accurate in patients wi th acute kidney failure, extremes of body mass or the acutely ill. [email or web address] Specimen Anatomical Collection Method Collection Time Receive d Time (Source) Location / / Volume Laterality Blood specimen 12/01/2019 3:55 AM 020 4:00 (specimen) EDT AM EDT Resulting Agency Comment Spec In Lab Gretchen Yoon MD CHEMISTRY ORDERABLES Performing Organization Address City/State/[place] [address] (ABNORMAL) Hemogram (12/01/2019 3:55 AM EDT) Analysis Performed At Patho [facility] Time Signature WBC 11.0 (H) 4.0 - 9.5 [facility] x10(3)/[facility] LABORATORY RBC 3.46 (L) 4.58 - [facility] 5.54 [facility] x10(6)/[facility] LABORATORY Hemoglobin 10.2 (L) 13.7 - [facility] 16.5 gm/dL [facility]ORY Hematocrit 31.2 (L) 40.5 - [facility] 48.5 % [facility]ORATORY MCV 90.2 82.9 - [facility] 93.1 [facility] LABORATORY MCH 29.5 27.5 - [facility] 32.1 pg [facility]ORATORY MCHC 32.7 32.0 - [facility] 35.7 gm/dL [facility]ORY Platelets 98 (L) 145 - 357 [facility] x10(3)/[facility] LABORATORY RDWSD 47.9 (H) 36.0 - [facility] 45.0 [facility] LABORATORY RDWCV 14.6 (H) 11.4 - [facility] 13.8 % [facility] LABORATORY MPV 12.3 7.6 - 12.9 [facility] LABORATORY nRBC % Auto 0.0 % [facility] nRBC Abs Auto 0.000 0.000 - [facility] 0.000 [facility] x10(3)/[facility] LABORATORY Specimen Anatomical Collection Method Collection Time Receive d Time (Source) Location / / Volume Laterality Blood specimen 12/01/2019 3:55 AM 020 4:00 (specimen) EDT AM EDT Resulting Agency Comment Spec In Lab Gretchen Yoon MD HEMATOLOGY ORDERABLES Performing Organization Address City/State/ZIP [place] [address] (ABNORMAL) BLOOD GAS 2 ARTERIAL (11/30/2019 10:39 PM EDT) Analysis Performed At [facility] Time Signature pH Art 7.45 7.35 - [facility] 7.45 [facility] LABORATORY pCO2 Art 23 (L) 35 - 45 [facility] LABORATORY pO2 Art 76 (L) 85 - 104 [facility] LABORATORY HCO3 Art 15.3 (L) 20.0 - [facility] 26.0 [facility] mmol/[facility] LABORATORY BE Art -8.7 (L) -3.0 - 3.0 [facility] mmol/L [facility] LABORATORY Hgb Blood Gas 11.7 (L) 13.7 - [facility] 16.5 gm/dL [facility] O2HB Art 94.2 94.0 - [facility] 97.0 % [facility] LABORATORY COHB Art 0.5 % [facility] Comment: Nonsmokers: 0.5-1.5% COHB Smokers: Variable, but usually less than 10% Toxic: 20-30% COHB Lethal: Greater than 60% COHB METHB Art 0.6 <=1.5 % [facility]OR[facility] Na Whole Blood 133 (L) 135 - 145 mmol/L [facility]ORATORY K Whole Blood 3.8 3.5 - 5.0 mmol/L [facility] Comment: Please note: Patients [...] Blood 109 (H) 98 - 107 mmol/L [facility] Gluc Whole Bld 120 65 - 199 mg/dL [facility] Comment: Diabetes: >=200 mg/dL plus symp toms. Lactate WB 0.8 0.5 - 2.2 mmol/L [facility] LABORAT[facility] FIO2 Art 100 % [facility] PF Ratio Art 76 [facility] LABORATORY Specimen Anatomical Collection Method Collection Time Receive d Time (Source) Location / / Volume Laterality Blood specimen 11/30/2019 10:39 0 (specimen) PM EDT 10:39 PM EDT Gretchen Yoon MD CHEMISTRY ORDERABLES Performing Organization Address City/State/[place] [address] EKG 12 Lead (11/30/2019 [...] (Bezet) Calculated P 12 degrees MUSE SYSTEM Dequincy Calculated R 19 degrees MUSE SYSTEM Dequincy Calculated T -47 degrees MUSE SYSTEM [facility]quincy INTERPRETATION Sinus rhythm with Premature supraventricular complexes and Premature ventricular complexes MUSE SYST EM Inferior infarct (cited on or before 29-NOV-2019) ST & T wave abnormality, consider inferior ischemia Abnormal ECG When compared with ECG of 30-NOV-2019 13:55, No significant change was found Confirmed by Sumanth Akbra MD ([id number]) on 12/02/2019 8:40:44 AM Specimen Anatomical Collection Method Collection Time Receive d Time (Source) Location / / Volume Laterality 11/30/2019 9:07 PM 0 8:40 EDT AM EDT Gretchen Yoon MD ECG ORDERABLES Performing Organization Address City/[facility]/ZIP Code Phon e Number MUSE SYSTEM (ABNORMAL) Urinalysis Microscopic Exam (11/30/2019 8:40 PM EDT) P athologist Signature RBC UA 27 (H) 0 - 3 /HPF [facility] WBC UA 4 (H) 0 - 3 /HPF [facility] Hyaline Cast 3 (H) 0 - 2 /LPF [facility] LABORATORY Specimen (Source) Anatomical Collection Method Collection Time Re ceived Time Location / / Volume Laterality Urine specimen 11/30/2019 8:40 11/30/2019 obtained via PM EDT 10:51 PM EDT indwelling urinary catheter (specimen) Resulting Agency Comment Spec In Lab Rossy Winn MD URINE ORDERABLES Performing Organization Address City/[facility]/ZIP Code Phon e Number [place] [id number] HOSP[address] LABORATORY Drive (ABNORMAL) Urinalysis with reflex Culture (11/30/2019 8:40 PM EDT) Patholo gist Method Time Signature Glucose UA Negative Negative [facility] mg/dL [facility] LABORATORY Protein UA Negative Negative [facility] mg/dL [facility] LABORATORY Bilirubin UA Negative Negative [facility] mg/dL [facility]ATORY Comment: Clinical correlation required for positi ve Urine Bilirubin results as false positive may occur with some drugs and d rug related products. If a false positive is suspected a serum total bili morales should be considered if clinically indicated. Urobilinogen UA Normal Normal mg/dL [facility] LABORATORY pH UA 5.5 5.0 - 8.0 [facility] Blood UA Moderate (A) Negative mg/dL [facility] Ketones UA 40 (A) Negative mg/dL [facility] Nitrite UA Negative Negative [facility] Leukocytes UA Trace (A) Negative [facility] LABORATORY Appearance UA Clear Clear [facility] LABORATORY Spec [place] UA 1.026 1.006 - 1.030 [facility] Color UA Yellow Yellow [facility]OR[facility]ORY Culture Reflexed No [facility]OR[facility] Specimen (Source) Anatomical Collection Method Collection Time Re ceived Time Location / / Volume Laterality Urine specimen 11/30/2019 8:40 11/30/2019 obtained via PM EDT 10:51 PM EDT indwelling urinary catheter (specimen) Resulting Agency Comment Spec In Lab Gretchen Yoon MD URINE ORDERABLES Performing Organization Address City/State/[place] [address] (ABNORMAL) pro-Brain Natriuretic Peptide (11/30/2019 8:30 PM EDT) P athologist Signature ProBNP 2,802 (H) <=125 [facility] pg/mL [facility] LABORATORY Specimen Anatomical Collection Method Collection Time Receive d Time (Source) Location / / Volume Laterality Blood specimen Venous Draw / 11/30/2019 8:30 PM 2019 8:36 (specimen) Unknown EDT PM EDT Resulting Agency Comment Spec In Lab Rossy Winn MD CHEMISTRY ORDERABLES Performing Organization Address City/State/ZIP Code Phon e Number [place] [id number]OSPITAL LAB[address]ORY Drive (ABNORMAL) Troponin (11/30/2019 8:30 PM EDT) athologist Signature Troponin-T 5.04 (H) 0.00 - MELINA MONAE 0.00 ng/mL [facility] Comment: The 99th percentile for Troponin T is le ss than 0.01 ng/mL, any detectable cTnT concentration using this assay should be considered elevated. According to the third universal definit ion of myocardial infarction the following criteria with a clinical prese ntation consistent with acute myocardial ischemia meets the diagnosis for a myocardial infarction (PR). Detection of a rise and/or fall of [...] additional sample may be indicated. Reference: Third [place] Definition of Myocardial Infarction. Journal of the [place] [employer] 2012;60:1581-98 Specimen Anatomical Collection Method Collection Time Receive d Time (Source) Location / / Volume Laterality Blood specimen Venous Draw / 11/30/2019 8:30 PM 2019 8:36 (specimen) Unknown EDT PM EDT Resulting Agency Comment Spec In Lab Rossy Winn MD CHEMISTRY ORDERABLES Performing Organization Address City/State/[place] [address] Magnesium (11/30/2019 8:30 PM EDT) athologist Signature Magnesium 0.79 0.69 - 1.07 [facility] mmol/L [facility] LABORATORY Specimen Anatomical Collection Method Collection Time Receive d Time (Source) Location / / Volume Laterality Blood specimen 11/30/2019 8:30 PM 020 8:35 (specimen) EDT PM EDT Resulting Agency Comment Spec In Lab Gretchen Yoon MD CHEMISTRY ORDERABLES Performing Organization Address City/State/[place] [address] (ABNORMAL) Basic Metabolic Panel (non-fasting) (11/30/2019 8:30 PM EDT) athologist Signature Glucose Lvl 132 65 - 199 [facility] mg/dL [facility] Comment: Diabetes: >=200 mg/dL plus symp toms BUN 12 10 - 20 mg/dL [facility] LABORATORY Creatinine 0.94 0.80 - 1.50 mg/dL [facility] LABORATORY Sodium 136 135 - 145 mmol/L [facility] Potassium 3.9 3.5 - 5.0 mmol/L [facility] Comment: Please note: ??Patients with [...] Calcium 7.9 (L) 8.5 - 10.5 mg/dL [facility] Estimated GFR 80 >=60 mL/min/1.73 m?? [facility] Comment: The eGFR was calculated using the CKD-EP I equation. As with all creatinine based estimates of kidney function, eGFR values calculated with the CKD-EPI equation are not accurate in patients wi th acute kidney failure, extremes of body mass or the acutely ill. [email or web address] eGFR 93 >=60 mL/min/1.73 m?? [facility] Comment: The eGFR was calculated using the CKD-EP I equation. As with all creatinine based estimates of kidney function, eGFR values calculated with the CKD-EPI equation are not accurate in patients wi th acute kidney failure, extremes of body mass or the acutely ill. [email or web address] Specimen Anatomical Collection Method Collection Time Receive d Time (Source) Location / / Volume Laterality Blood specimen 11/30/2019 8:30 PM 020 8:35 (specimen) EDT PM EDT Resulting Agency Comment Spec In Lab Gretchen Yoon MD CHEMISTRY ORDERABLES Performing Organization Address [facility] Phon e Number [address] Blood culture (11/30/2019 8:30 PM EDT) Patholo gist Method Time Signature Blood Culture No growth MELINA MONAE at 5 days. [facility] LABORATORY Specimen Anatomical Collection Method Collection Time Receive d Time (Source) Location / / Volume Laterality Blood specimen 11/30/2019 8:30 PM 020 9:40 (specimen) EDT PM EDT Comment: L HAND Resulting Agency Comment Spec In Lab Gretchen Yoon MD MICROBIOLOGY - BLOOD ORDERAB LES Performing Organization Address City/[facility] [place] [address] Blood culture (11/30/2019 8:30 PM EDT) Patholo gist Method Time Signature Blood Culture No growth MELINA MONAE at 5 days. [facility] LABORATORY Specimen Anatomical Collection Method Collection Time Receive d Time (Source) Location / / Volume Laterality Blood specimen 11/30/2019 8:30 PM 020 9:40 (specimen) EDT PM EDT Comment: R HAND Resulting Agency Comment Spec In Lab Gretchen Yoon MD MICROBIOLOGY - BLOOD ORDERAB LES Performing Organization Address [facility] Phon e Number [address] XR Chest One View [...] Signature pH Art 7.45 7.35 - [facility] 7.45 [facility] LABORATORY pCO2 Art 27 (L) 35 - 45 [facility] mmHg [facility] LABORATORY pO2 Art 68 (L) 85 - 104 [facility] LABORATORY HCO3 Art 18.2 (L) 20.0 - [facility] 26.0 [facility] mmol/[facility] LABORATORY BE Art -5.9 (L) -3.0 - 3.0 [facility] mmol/L [facility] LABORATORY Hgb Blood Gas 12.4 (L) 13.7 - [facility] 16.5 gm/dL [facility] O2HB Art 93.1 (L) 94.0 - [facility] 97.0 % [facility] LABORATORY COHB Art 0.8 % [facility] Comment: Nonsmokers: 0.5-1.5% COHB Smokers: Variable, but usually less than 10% Toxic: 20-30% COHB Lethal: Greater than 60% COHB METHB Art 0.4 <=1.5 % [facility] Na Whole Blood 133 (L) 135 - 145 mmol/L [facility] K Whole Blood 3.6 3.5 - 5.0 mmol/L [facility] Comment: Please note: Patients [...] Blood 108 (H) 98 - 107 mmol/L [facility] Gluc Whole Bld 121 65 - 199 mg/dL [facility] Comment: Diabetes: >=200 mg/dL plus symp toms. Lactate WB 1.2 0.5 - 2.2 mmol/L [facility] Flow Art 5.0 LPM [facility]ORY Specimen Anatomical Collection Method Collection Time Receive d Time (Source) Location / / Volume Laterality Blood specimen 11/30/2019 8:09 PM 020 8:09 (specimen) EDT PM EDT Gretchen Yoon MD CHEMISTRY ORDERABLES Performing Organization Address City/State/ZIP Code Phon e Number [place] [phone] HOSPITAL LABORATORY Drive CT Angiogram [place] (11/30/2019 4:36 PM EDT) Anatomical [...] report, please contact destini number below. ? Electronically signed by: Angel Luis Barboza MD, [facility] [place] ([phone]), at 11/30/2019 5:04 PM Narrative 11/30/2019 5:04 PM EDT EXAMINATION: CT HEAD WO CONTRAST (GENERIC), CT ANGIOGRAM [place] CLINICAL HISTORY: Headache, intracranial hemorrhage suspected F/U on known ICH - assessing for propaga tion TECHNIQUE: CT head performed without intravenous co ntrast administration. CT angiogram [place] 65 cc Omnipaque 350 administered [...] HEAD WO CONTRAST (GENERI C), CT ANGIOGRAM [place] CLINICAL HISTORY: Headache, intracranial hemorrhage suspected F/U on known ICH - assessing for propaga tion TECHNIQUE: CT head performed without intravenous co ntrast administration. CT angiogram [place] 65 cc Omnipaque 350 administered [...] Electronically signed by: Angel Luis Barboza MD, [facility] [place] ([phone]), at 11/30/2019 5:04 PM Gretchen Yoon MD G CT ORDERABLES CT [...] Electronically signed by: Angel Luis Barboza MD, [facility] [place] ([phone]), at 11/30/2019 5:04 PM Narrative 11/30/2019 5:04 PM EDT EXAMINATION: CT HEAD WO CONTRAST (GENERIC), CT ANGIOGRAM NONDALTON OF BRAY CLINICAL HISTORY: Headache, intracranial hemorrhage suspected F/U on known ICH - assessing for propaga tion TECHNIQUE: CT head performed without intravenous co ntrast administration. CT angiogram knik of Bray 65 cc Omnipaque 350 administered [...] HEAD WO CONTRAST (GENERI C), CT ANGIOGRAM NONDALTON OF BRAY CLINICAL HISTORY: Headache, intracranial hemorrhage suspected F/U on known ICH - assessing for propaga tion TECHNIQUE: CT head performed without intravenous co ntrast administration. CT angiogram knik of Bray 65 cc Omnipaque 350 administered [...] Electronically signed by: Angel Luis Barboza MD, [facility] ([phone]), at 11/30/2019 5:04 PM Gretchen Yoon MD [...] 453 ms MUSE SYSTEM (Bezet) Calculated P Dequincy 52 degrees MUSE SYSTEM Calculated R Dequincy 5 degrees MUSE SYSTEM Calculated T Dequincy -60 degrees MUSE SYSTEM INTERPRETATION Sinus rhythm [...] Corcoran ? (Age): 1945(74y) Med Rec#: ? [id number] ?Sex: ?M ? [place] Loc[facility] ? [facility] ?Ht / Wt: ??178(cm)/64(kg) Pt. Loc: ?[facility] ? BSA: ?1.8 Study Date: ?? 11/30/2019 ?Pt. Type: Inpatient Tape: ? Referring: GILMER Reading: Tello Mejia ([id number]) Cdl Service Technician: Friend, Lolita Diagnosis: *ST elevation (STEMI) [...] Vmax ?0.58 ? m/sec ? MV deceleration qkrn180.05 ? m sec ? MV A-wave Vmax [...] ? Mid-Inferior ?Akinetic ? Mid-Inferoseptal ?Normal ? Walton-Septal ? Normal ? Walton-Anterior ? Normal ? Walton-Lateral ?Normal ? Walton-Inferior ? Hypokinetic ? Walton-Tip ?Normal ? This report has been electronically sign ed by: _ Tello Mejia MD ? 11/30/2019 12: 45:27 [facility] Procedure Note Tello Mejia MD - 11/30/2019Formatti ng of this note might be different from the original. Procedure: Transthoracic Echocardiogram Patient: RITA ACOSTA(Age): [birth year](74y) Med Rec#: [id number] Sex: M [place] Loc: [facility] Ht / Wt: 178(cm)/64(kg) Pt. Loc: [facility] BSA: 1.8 Study Date: 11/30/2019 Pt. Type: Inpatie nt Tape: Referring: DONAYMICMUNIRAJ Reading: Tello Mejia ([id number]) Cdl Service Technician: Lolita Prado Diagnosis: *ST elevation (STEMI) [...] MV E-wave Vmax 0.58 m/sec MV deceleration egob470.05 msec MV A-wave Vmax 0.74 m/sec MV [...] Hypokinetic Mid-Posterolateral Hypokinetic Mid-Inferior Akinetic Mid-Inferoseptal Normal Walton-Septal Normal Walton-Anterior Normal Walton-Lateral Normal Walton-Inferior Hypokinetic Walton-Tip Normal This report has been electronically sign ed by: _ Tello Mejia MD 11/30/2019 12:45:27 Images reviewed and interpretation rafaela devin [facility] Cardiac Ultrasound Laboratory Gretchen Yoon MD ECHO [...] Electronically signed by: Angel Luis Barboza MD, [facility] ([phone]), at 11/30/2019 12:04 PM Narrative 11/30/2019 12:04 [...] Electronically signed by: Angel Luis Barboza MD, [facility] [place] ([phone]), at 11/30/2019 12:04 PM Gretchen Yoon MD IMG CT ORDERABLES Magnesium (11/30/2019 8:30 AM EDT) athologist [facility] Magnesium 0.88 0.69 - 1.07 [facility] mmol/L [facility] LABORATORY Specimen Anatomical Collection Method Collection Time Receive d Time (Source) Location / / Volume Laterality Blood specimen Venous Draw / 11/30/2019 8:30 AM 2019 8:37 (specimen) Unknown EDT AM EDT Resulting Agency Comment Spec In Lab Rossy Winn MD CHEMISTRY ORDERABLES Performing Organization Address City/[facility]/ZIP [place] [address] (ABNORMAL) CK (11/30/2019 8:30 AM EDT) athologist [facility] CK, Total 1,645 (H) 0 - 200 [facility] unit/L [facility]OR[facility] Specimen Anatomical Collection Method Collection Time Receive d Time (Source) Location / / Volume Laterality Blood specimen 11/30/2019 8:30 AM 020 8:32 (specimen) EDT AM EDT Resulting Agency Comment Spec In Lab Gretchen Yoon MD CHEMISTRY ORDERABLES Performing Organization Address City/[facility] [place] [address] (ABNORMAL) Troponin (11/30/2019 8:30 AM EDT) athologist [facility] Troponin-T 8.04 (H) 0.00 - MELINA DVO 0.00 ng/mL [facility] Comment: result rechecked-rancho The 99th percentile for Troponin T is le ss than 0.01 ng/mL, any detectable cTnT concentration using this assay should be considered elevated. According to the third universal definit ion of myocardial infarction the following criteria with a clinical prese ntation consistent with acute myocardial ischemia meets the diagnosis for a myocardial infarction (PR). Detection of a rise and/or fall of [...] additional sample may be indicated. Reference: Third [place] Definition of Myocardial Infarction. Journal of the [place] [employer] 2012;60:1581-98 Specimen Anatomical Collection Method Collection Time Receive d Time (Source) Location / / Volume Laterality Blood specimen 11/30/2019 8:30 AM 020 8:32 (specimen) EDT AM EDT Resulting Agency Comment Spec In Lab Gretchen Yoon MD CHEMISTRY ORDERABLES Performing Organization Address City/State/ZIP Code Phon e Number [place] [id number] EKG 12 Lead (11/30/2019 7:57 AM EDT) Component Value Ref Range Test Analysis Performed Pathologis t Method Time At Signature Ventricular rate 64 BPM MUSE SYSTEM Atrial Rate 64 BPM MUSE SYSTEM P-R Interval 132 ms MUSE SYSTEM QRS Duration 78 ms MUSE SYSTEM Q-T Interval 420 ms MUSE SYSTEM QTC Calculated 433 ms MUSE SYSTEM (Bezet) Calculated P Dequincy 28 degrees MUSE SYSTEM Calculated R Dequincy 7 degrees MUSE SYSTEM Calculated T Dequincy -33 degrees MUSE SYSTEM INTERPRETATION Sinus rhythm [...] Glucose 147 (H) 65 - 99 [facility] Fasting mg/dL [facility] Comment: ?Fasting* Glucose Interpretive C riteria [...] of Diabetes Mellitus, Position Statement from the [place] [employer]. ??Diabete s Care, Volume 33, Supplement 1, Jul 2009 BUN 13 10 - 20 mg/dL [facility] Creatinine 0.90 0.80 - 1.50 mg/dL [facility] LABORATORY Sodium 135 135 - 145 mmol/L [facility] Potassium 3.9 3.5 - 5.0 mmol/L [facility] Comment: Please note: ??Patients with [...] Calcium 7.5 (L) 8.5 - 10.5 mg/dL [facility] Estimated GFR 84 >=60 mL/min/1.73 m?? [facility] Comment: The eGFR was calculated using the CKD-EP I equation. As with all creatinine based estimates of kidney function, eGFR values calculated with the CKD-EPI equation are not accurate in patients wi th acute kidney failure, extremes of body mass or the acutely ill. [email or web address]/[facility] eGFR 98 >=60 mL/min/1.73 m?? [facility] Comment: The eGFR was calculated using the CKD-EP I equation. As with all creatinine based estimates of kidney function, eGFR values calculated with the CKD-EPI equation are not accurate in patients wi th acute kidney failure, extremes of body mass or the acutely ill. http://TheCrowd/[facility] Specimen Anatomical Collection Method Collection Time Receive d Time (Source) Location / / Volume Laterality Blood specimen 11/30/2019 2:15 AM 020 2:29 (specimen) EDT AM EDT Resulting Agency Comment Spec In Lab Gretchen Yoon MD CHEMISTRY ORDERABLES Performing Organization Address City/State/ZIP Code Phon e Number [place] [id number] (ABNORMAL) Hemogram (11/30/2019 2:15 AM EDT) Analysis Performed At Patho logist Time Signature WBC 11.2 (H) 4.0 - 9.5 [facility] x10(3)/[facility] LABORATORY RBC 3.83 (L) 4.58 - [facility] 5.54 [facility] x10(6)/[facility] LABORATORY Hemoglobin 11.4 (L) 13.7 - [facility] 16.5 gm/dL [facility] Hematocrit 35.2 (L) 40.5 - [facility] 48.5 % [facility]ATORY MCV 91.9 82.9 - [facility] 93.1 fL [facility] LABORATORY MCH 29.8 27.5 - [facility] 32.1 pg [facility] LABORATORY MCHC 32.4 32.0 - MELINA MONAE 35.7 gm/dL [facility] LAB[facility]ATORY Platelets 122 (L) 145 - 357 MELINA MARSHDOV x10(3)/[facility] LABORATORY RDWSD 49.8 (H) 36.0 - MELINA MONAE 45.0 [facility] LABORATORY RDWCV 14.8 (H) 11.4 - MELINA [place] 13.8 % [facility] LABORATORY MPV 12.1 7.6 - 12.9 MELINA MONAE [facility] LABORATORY nRBC % Auto 0.0 % [facility] nRBC Abs Auto 0.000 0.000 - MELINA MARSHDOV 0.000 [facility] x10(3)/[facility] LABORATORY Specimen Anatomical Collection Method Collection Time Receive d Time (Source) Location / / Volume Laterality Blood specimen 11/30/2019 2:15 AM 020 2:29 (specimen) EDT AM EDT Resulting Agency Comment Spec In Lab Gretchen Yoon MD HEMATOLOGY ORDERABLES Performing Organization Address City/State/ZIP [place] [address] (ABNORMAL) CK (11/30/2019 2:15 AM EDT) athologist [facility] CK, Total 1,969 (H) 0 - 200 [facility] DOV unit/L [facility] LAB[facility] Specimen Anatomical Collection Method Collection Time Receive d Time (Source) Location / / Volume Laterality Blood specimen 11/30/2019 2:15 AM 020 2:29 (specimen) EDT AM EDT Resulting Agency Comment Spec In Lab Gretchen Yoon MD CHEMISTRY ORDERABLES Performing Organization Address City/State/ZIP [place] [address] (ABNORMAL) Troponin (11/30/2019 2:15 AM EDT) athologist [facility] Troponin-T 11.73 (H) 0.00 - MELINA MONAE 0.00 ng/mL [facility] Comment: result rechecked-slw The 99th percentile for Troponin T is le ss than 0.01 ng/mL, any detectable cTnT concentration using this assay should be considered elevated. According to the third universal definit ion of myocardial infarction the following criteria with a clinical prese ntation consistent with acute myocardial ischemia meets the diagnosis for a myocardial infarction (PR). Detection of a rise and/or fall of [...] additional sample may be indicated. Reference: Third [place] Definition of Myocardial Infarction. Journal of the [place] [employer] 2012;60:1581-98 result rechecked- The 99th percentile for Troponin T is le ss than 0.01 ng/mL, any detectable cTnT concentration using this assay should be considered elevated. According to the third universal definit ion of myocardial infarction the following criteria with a clinical prese ntation consistent with acute myocardial ischemia meets the diagnosis for a myocardial infarction (PR). Detection of a rise and/or fall of [...] additional sample may be indicated. Reference: Third [place] Definition of Myocardial Infarction. Journal of the [place] [employer] 2012;60:1581-98 Corrected from 11.73 ng/ml [HI] on 11/29 3:11:51 EDT by Debi Hawley Specimen Anatomical Collection Method Collection Time Receive d Time (Source) Location / / Volume Laterality Blood specimen 11/30/2019 2:15 AM 020 2:29 (specimen) EDT AM EDT Resulting Agency Comment Spec In Lab Gretchen Yoon MD CHEMISTRY ORDERABLES Performing Organization Address City/[facility]/ZIP Code Phon e Number [address] LDL Cholesterol, Direct (11/30/2019 2:15 AM EDT) P athologist Signature LDL Chol 156 mg/dL [facility] LABORATORY Comment: Lowest Risk: <100 mg/dL Lower Risk: 100-129 mg/dL Borderline High Risk: 130-159 mg/dL High Risk: 160-189 mg/dL Very High Risk: >rw=634 mg/dL Specimen Anatomical Collection Method Collection Time Receive d Time (Source) Location / / Volume Laterality Blood specimen 11/30/2019 2:15 AM 020 2:29 (specimen) EDT AM EDT Resulting Agency Comment Spec In Lab Gretchen Yoon MD CHEMISTRY ORDERABLES Performing Organization Address City/[facility]/ZIP Code Phon e Number [address] (ABNORMAL) Hemoglobin A1c (11/30/2019 2:15 AM EDT) Analysis Performed At Patho logist Time Signature Hemoglobin A1C 6.3 (H) 4.3 - 5.6 [facility] LABORATORY Comment: Reference Range: 4.3 [...] Mellitus, Diabetes Care 2013; 36: Suppl. 1, R58-19 Est Avg Gluc See note mg/dL [facility] LABORATORY Comment: Estimated Average Glucose not [...] with hemoglobinopathies. Additional resources are available on [facility] ADA website. Kiko CARBAJAL, Jenn J, Silas R, et al. ??Tr anslating the A1C assay into estimated average glucose values. ??Diabetes Care 2008:31(8):1601-6136. Specimen Anatomical Collection Method Collection Time Receive d Time (Source) Location / / Volume Laterality Blood specimen 11/30/2019 2:15 AM 020 2:29 (specimen) EDT AM EDT Resulting Agency Comment Spec In Lab Gretchen Yoon MD CHEMISTRY ORDERABLES Performing Organization Address City/State/[place] [address] Lipid Panel (Reflex Direct LDL) (11/30/2019 2:15 AM EDT) athologist Signature Chol, Total 195 mg/dL [facility] Comment: Lower Risk: <200 mg/dL Average Risk: 200-239 mg/dL Higher Risk: >ro=555 mg/dL Triglycerides 93 mg/dL [facility] LABORATORY Comment: Average Risk/Lower Risk: <150 mg/dL Borderline High Risk: 150-199 mg/dL High Risk: 200-499 mg/dL Very High Risk: >ev=291 mg/dL HDL 32 mg/dL [facility] LABORATORY Comment: Males: ?? Higher Risk: <40 mg/dL Females: ?? HIgher Risk: <50 mg/dL LDL Cholesterol 144 mg/dL [facility] Comment: Lowest Risk: <100 mg/dL Lower Risk: 100-129 mg/dL Borderline High Risk: 130-159 mg/dL High Risk: 160-189 mg/dL Very High Risk: >ja=523 mg/dL Chol/HDL Ratio 6.[address] [facility] Lipid Interpretation See Note [facility] LAB[facility] Comment: Lipid management should be guided by a p atient? s ASCVD risk, goals and preferences. ACC/AHA Guidelines recommend high intens ity statin if clinical ASCVD or LDL greater than or equal to 190 mg/dL. http://TheCrowd/WAZ-BKF-Umgsdrqax Adults aged 40-75 with LDL 70-189 mg/dL should have their 10 year ASCVD risk estimated with the ACC/AHA ASCVD risk es timator http://tools.acc.org/QJIJD-Gnee-Qrnipprr r/ Statin should be discussed if risk [...] Organization Address City/State/[place] [address] (ABNORMAL) CK (11/29/2019 6:35 PM EDT) athologist Signature CK, Total 2,780 (H) 0 - 200 [facility] unit/L [facility] LABORATORY Specimen Anatomical Collection Method Collection Time Receive d Time (Source) Location / / Volume Laterality Blood specimen 11/29/2019 6:35 PM 020 6:53 (specimen) EDT PM EDT Resulting Agency Comment Spec In Lab Gretchen Yoon MD CHEMISTRY ORDERABLES Performing Organization Address City/State/[place] [address] (ABNORMAL) Troponin (11/29/2019 6:35 PM EDT) athologist Signature Troponin-T 17.60 (H) 0.00 - [facility] 0.00 ng/mL [facility] LABORATORY Comment: result rechecked-az The 99th percentile for Troponin T is le ss than 0.01 ng/mL, any detectable cTnT concentration using this assay should be considered elevated. According to the third universal definit ion of myocardial infarction the following criteria with a clinical prese ntation consistent with acute myocardial ischemia meets the diagnosis for a myocardial infarction (PR). Detection of a rise and/or fall of [...] additional sample may be indicated. Reference: Third [place] Definition of Myocardial Infarction. Journal of the [place] College [employer] Cardiology 2012;60:1581-98 Specimen Anatomical Collection Method Collection Time Receive d Time (Source) Location / / Volume Laterality Blood specimen 11/29/2019 6:35 PM 020 6:53 (specimen) EDT PM EDT Resulting Agency Comment Spec In Lab Gretchen Yoon MD CHEMISTRY ORDERABLES Performing Organization Address City/State/ZIP Code Phon e Number [place] [phone] EKG 12 Lead (11/29/2019 3:58 PM EDT) [facility] gist Method Time Signature Ventricular rate 73 BPM MUSE SYSTEM Atrial Rate 73 BPM MUSE SYSTEM P-R Interval 152 ms MUSE SYSTEM QRS Duration 84 ms MUSE SYSTEM Q-T Interval 404 ms MUSE SYSTEM QTC Calculated 445 ms MUSE SYSTEM (Bezet) Calculated P Dequincy 50 degrees MUSE SYSTEM Calculated R Dequincy -4 degrees MUSE SYSTEM Calculated T Dequincy 19 degrees MUSE SYSTEM INTERPRETATION Sinus rhythm with Premature atrial complexes MUSE SYSTEM Possible Inferior infarct (cited on or before 29-NOV-2019) Abnormal ECG When compared with ECG of 29-NOV-2019 11:38, Premature atrial complexes are now Present Confirmed by MD Charlene, Ppee Dawn () on 11/30/2019 10:48:52 AM Specimen [...] equ ivocal tiny right pneumothorax with Dr. rEic on 11/29/2019 4:55 PM and verified that (s)he understood these results. Thank you for letting us participate in the care of this patient. For questions regarding this report, please contact e number below. ? --------ORIGINAL REPORT -------- EXAMINATION: XR CHEST ONE VIEW CLINICAL HISTORY: stemi (as entered by [facility] in the order requisition) TECHNIQUE: Portable [...] lung apex is excluded from the imaged [id number]. IMPRESSION: 1. ??New right internal jugular pulmonar [...] lung apex is excluded from the imaged [id number]. Procedure Note Estefani Harris MD - 11/29/2019Formattin [...] lung apex is excluded from the imaged hippl-[id number]. IMPRESSION 1. New right internal jugular pulmonary [...] (ABNORMAL) Differential, Automated (11/29/2019 2:32 PM EDT) [facility] Method Time Signature Neutrophils % 83.8 % [facility] Neutr Abs (ANC) 12.12 (H) 1.70 - [facility] 6.10 [facility] x10(3)/[facility] LABORATORY Lymphocytes % 9.1 % [facility] Lymphocytes Abs 1.3 0.9 - 3.2 [facility] x10(3)/[facility] LABORATORY Monocytes % 6.2 % [facility] Monocyte Abs 0.9 0.3 - 0.9 [facility] x10(3)/[facility] LABORATORY Eosinophils % 0.0 % [facility] Eosinophils Abs 0.0 0.0 - 0.4 [facility] x10(3)/[facility] LABORATORY Basophils % 0.3 % [facility] Basophils Abs 0.0 0.0 - 0.1 [facility] x10(3)/[facility] LABORATORY Immature Gran % 0.60 % [...] Organization Address City/State/[place] [address] (ABNORMAL) Hemogram (11/29/2019 2:32 PM EDT) Analysis Performed At Patho logist Time Signature WBC 14.5 (H) 4.0 - 9.5 [facility] x10(3)/[facility] LABORATORY RBC 4.53 (L) 4.58 - [facility] 5.54 [facility] x10(6)/[facility] LABORATORY Hemoglobin 13.1 (L) 13.7 - [facility] 16.5 gm/dL [facility] LABORATORY Hematocrit 40.8 40.5 - [facility] 48.5 % [facility] LABORATORY MCV 90.1 82.9 - [facility]1 [facility] LABORATORY MCH 28.9 27.5 - [facility] 32.1 pg [facility] LABORATORY MCHC 32.1 32.0 - [facility] 35.7 gm/dL [facility] LABORATORY Platelets 184 145 - 357 [facility] x10(3)/[facility] LABORATORY RDWSD 47.8 (H) 36.0 - [facility] DOV 45.0 [facility] LABORATORY RDWCV 14.5 (H) 11.4 - [facility] DOV 13.8 % [facility] LABORATORY MPV 11.9 7.6 - 12.9 [facility] nRBC % Auto 0.0 % [facility] nRBC Abs Auto 0.000 0.000 - [facility] DOV 0.000 [facility] x10(3)/[facility] LABORATORY Specimen Anatomical Collection Method Collection Time Receive d Time (Source) Location / / Volume Laterality Blood specimen 11/29/2019 2:32 PM 020 2:55 (specimen) EDT PM EDT Resulting Agency Comment Spec In Lab Darrell Glasgow MD HEMATOLOGY ORDERABLES Performing Organization Address City/State/ZIP Code Phon e Number [address] (ABNORMAL) CK (11/29/2019 2:32 PM EDT) athologist Signature CK, Total 3,282 (H) 0 - 200 [facility] unit/L [facility] LABORATORY Specimen Anatomical Collection Method Collection Time Receive d Time (Source) Location / / Volume Laterality Blood specimen 11/29/2019 2:32 PM 020 2:32 (specimen) EDT PM EDT Resulting Agency Comment Spec In Lab Gretchen Yoon MD CHEMISTRY ORDERABLES Performing Organization Address City/[facility]/ZIP [place] [address] (ABNORMAL) Troponin (11/29/2019 2:32 PM EDT) athologist Signature Troponin-T 20.33 (H) 0.00 - [facility] 0.00 ng/mL [facility] LABORATORY Comment: The 99th percentile for Troponin T is le ss than 0.01 ng/mL, any detectable cTnT concentration using this assay should be considered elevated. According to the third universal definit ion of myocardial infarction the following criteria with a clinical prese ntation consistent with acute myocardial ischemia meets the diagnosis for a myocardial infarction (PR). Detection of a rise and/or fall of [...] additional sample may be indicated. Reference: Third [place] Definition of Myocardial Infarction. Journal of the [place] [employer] 2012;60:1581-98 Specimen Anatomical Collection Method Collection Time Receive d Time (Source) Location / / Volume Laterality Blood specimen 11/29/2019 2:32 PM 020 2:32 (specimen) EDT PM EDT Resulting Agency Comment Spec In Lab Gretchen Yoon MD CHEMISTRY ORDERABLES Performing Organization Address [facility] [place] [address] (ABNORMAL) APTT (11/29/2019 2:32 PM EDT) athologist Signature PTT 114 25 - 37 [facility] (Critical) [facility] LABORATORY Comment: Critical Result called by ?? [...] Yoon MD HEMATOLOGY ORDERABLES Performing Organization Address [facility] [place] [address] (ABNORMAL) Prothrombin Time (11/29/2019 2:32 PM EDT) P athologist Signature PT 13.5 (H) 9.4 - 12.5 [facility] LABORATORY INR 1.2 [facility] [...] Organization Address City/State/ZIP [place] [address] (ABNORMAL) Hepatic Function Panel (11/29/2019 2:32 PM EDT) athologist Signature Total Protein 6.3 6.1 - [facility]0 [facility] Albumin 3.6 3.2 - 5.2 [facility] g[facility]/dL [facility] AST 257 (H) 0 - 39 [facility] unit/L [facility] ALT 50 0 - 55 [facility] unit/L [facility] Alk Phos 84 40 - 130 [facility] unit/L [facility] Total 0.3 0.2 - 1.3 [facility] Bilirubin mg/dL [facility] Bili, Direct 0.1 0.0 - 0.3 [facility] mg/dL [facility] Specimen Anatomical Collection Method Collection Time Receive d Time (Source) Location / / Volume Laterality Blood specimen 11/29/2019 2:32 PM 020 2:32 (specimen) EDT PM EDT Resulting Agency Comment Spec In Lab Gretchen Yoon MD CHEMISTRY ORDERABLES Performing Organization Address City/[facility]/ZIP [place] [address] (ABNORMAL) pro-Brain Natriuretic Peptide (11/29/2019 2:32 PM EDT) P athologist Signature ProBNP 272 (H) <=125 pg/mL [facility] Specimen Anatomical Collection Method Collection Time Receive d Time (Source) Location / / Volume Laterality Blood specimen 11/29/2019 2:32 PM 020 2:32 (specimen) EDT PM EDT Resulting Agency Comment Spec In Lab Gretchen Yoon MD CHEMISTRY ORDERABLES Performing Organization Address City/[facility]/ZIP [place] [address] Magnesium (11/29/2019 2:32 PM EDT) athologist Signature Magnesium 0.76 0.69 - 1.07 [facility] mmol/L [facility] Specimen Anatomical Collection Method Collection Time Receive d Time (Source) Location / / Volume Laterality Blood specimen 11/29/2019 2:32 PM 020 2:32 (specimen) EDT PM EDT Resulting Agency Comment Spec In Lab Gretchen Yoon MD CHEMISTRY ORDERABLES Performing Organization Address City/State/ZIP Code Phon e Number [address] (ABNORMAL) Basic Metabolic Panel (non-fasting) (11/29/2019 2:32 PM EDT) athologist Signature Glucose Lvl 149 65 - 199 [facility] mg/dL [facility] Comment: Diabetes: >=200 mg/dL plus symp toms BUN 16 10 - 20 mg/dL [facility] Creatinine 0.94 0.80 - 1.50 mg/dL [facility] Sodium 135 135 - 145 mmol/L [facility] Potassium 4.5 3.5 - 5.0 mmol/L [facility] Comment: Please note: ??Patients with [...] Calcium 8.0 (L) 8.5 - 10.5 mg/dL [facility] Estimated GFR 80 >=60 mL/min/1.73 m?? [facility] Comment: The eGFR was calculated using the CKD-EP I equation. As with all creatinine based estimates of kidney function, eGFR values calculated with the CKD-EPI equation are not accurate in patients wi th acute kidney failure, extremes of body mass or the acutely ill. [email or web address] eGFR 93 >=60 mL/min/1.73 m?? [facility] Comment: The eGFR was calculated using the CKD-EP I equation. As with all creatinine based estimates of kidney function, eGFR values calculated with the CKD-EPI equation are not accurate in patients wi th acute kidney failure, extremes of body mass or the acutely ill. [email or web address] Specimen Anatomical Collection Method Collection Time Receive d Time (Source) Location / / Volume Laterality Blood specimen 11/29/2019 2:32 PM 020 2:32 (specimen) EDT PM EDT Resulting Agency Comment Spec In Lab Gretchen Yoon MD CHEMISTRY ORDERABLES Performing Organization Address City/[facility] [place] [address] EKG 12 Lead (11/29/2019 11:38 AM EDT) [facility] gist Method Time Signature Ventricular rate 60 BPM MUSE SYSTEM Atrial Rate 60 BPM MUSE SYSTEM P-R Interval 140 ms MUSE SYSTEM QRS Duration 86 ms MUSE SYSTEM Q-T Interval 474 ms MUSE SYSTEM QTC Calculated 474 ms MUSE SYSTEM (Bezet) Calculated P Dequincy 48 degrees MUSE SYSTEM Calculated R Dequincy 14 degrees MUSE SYSTEM Calculated T Dequincy 58 degrees MUSE SYSTEM INTERPRETATION Normal sinus [...] Yoon MD ECG ORDERABLES Performing Organization Address City/[facility]/ZIP [facility] Phon e Number MUSE SYSTEM CARDIAC CATHETERIZATION (11/29/2019 11:15 AM EDT) Anatomical Region Laterality Modality Other Specimen (Source) Anatomical Location Collection Method / Collectio n Time Received Time / Laterality Volume Narrative 11/30/2019 1:09 PM EDT ?[facility] ? Cardiac Cathete rization/Intervention Report ? Patient Name: Salinas, Angel Luis H. ? Procedure Date: 11/29/2019 ? A #: [id number] ? Primary Physician: Young, Gretchen N ? Case #: [id number] ? File Name: [id number] ? Catheterization Order Number: [id number] ? [facility] ? Final Report [place], [place] ? Patient Name: ? Angel Luis Salinas ? ID#: ?[id number] ? : ?1945 ? Procedure Date: ? [...] procedure was Emergent. The indication for ?the laborer filter plant visit is ACS less than or equal [...] dose administered prior to arrival in the laborer filter plant. ?Recommended anti-platelet/anti- thrombotic regimen: ?Continue aspirin 81 [...] note might be different from the original. [facility] Cardiac Catheterization/Intervention Re port Patient Name: Angel Luis Salinas Procedure Date: 11/29/2019 A #: [id number] Primary Physician: Gretchen Yoon Case #: [id number] File Name: [id number] Catheterization Order Number: [id number] [facility] Final Report [place], [place] Patient Name: Angel Luis Salinas ID#: [id number] : 1945 Procedure Date: November 29, [...] as ASA Class IV. The [facility] clinical frailty scale is 4: Vulnerable. Diagnostic Tests: Electrocardiography: EKG was assessed by ECG. EKG was Abnorm al. EKG showed ST Deviation >= 0.5 mm. Medications Prior to Procedure: Aspirin. Indications for Diagnostic Cath: The priority of the diagnostic procedur e was Emergent. The indication for the laborer filter plant visit is ACS less than or equal [...] priority for the procedure was Emergent. The [facility] indication for the procedure was S [...] this intervention was 10%. The final TI PR flow was 2. Distal 90% Thrombectomy and [...] this intervention was 10%. The final TI PR flow was 2. Vascular Access: Vascular Access [...] administered prior t o arrival in the laborer filter plant. Recommended anti-platelet/anti-thrombot ic regimen: Continue aspirin 81 mg daily for indefi nitely. Continue clopidogrel 75 mg daily for 12 months then stop. These recommendations are made at the t loyda of the intervention. Patient and provider preferences or a changing clinical situation may require modification of this regimen. Consult [facility] Interventional Cardiology for questions. Conclusions: * Two [...] POC pH 7.33 (L) 7.35 - [facility] 7.45 [facility] POC PCO2 33 (L) 35 - 45 [facility] mmHg [facility] POC PO2 56 (L) 85 - 104 [facility] LABORATORY POC Base Excess -8.0 (L) -3.0 - 3.0 [facility] K mmol/L [facility] POC HCO3 17.4 (L) 20.0 - [facility] 26.0 [facility] mmol/[facility] POC Sodium 137 135 - 145 [facility] mmol/L [facility] POC Potassium 3.6 3.5 - 5.0 [facility] mmol/L [facility] POC Ionized Ca 1.15 1.15 - [facility] 1.33 [facility] Hematocrit 37.0 (L) 40.0 - [facility] 51.0 % [facility] POC Calc Hgb 12.6 (L) 13.7 - [facility] 17.5 gm/dL [facility] Comment: The calculation of hemoglobin f rom hematocrit assumes a normal MCHC. POC Bgas Loc CC LAB [facility] Specimen Anatomical Collection Method Collection Time Receive d Time (Source) Location / / Volume Laterality Blood specimen 11/29/2019 9:17 AM 020 7:35 (specimen) EDT AM EDT Gretchen Yoon MD CHEMISTRY ORDERABLES Performing Organization Address City/State/[place] [address] EKG 12 Lead (11/29/2019 9:01 AM EDT) Component Value Ref Range Test Analysis Performed Pathologis t Method Time At Signature Ventricular rate 80 BPM MUSE SYSTEM Atrial Rate 79 BPM MUSE SYSTEM QRS Duration 94 ms MUSE SYSTEM Q-T Interval 436 ms MUSE SYSTEM QTC Calculated 502 ms MUSE SYSTEM (Bezet) Calculated R Dequincy 54 degrees MUSE SYSTEM Calculated T Dequincy 80 degrees MUSE SYSTEM INTERPRETATION Normal sinus rhythm MUSE SYSTEM Inferior infarct , possibly acute Prolonged QT * ACUTE PR ?? Consider right ventricular involvement in acute [...] 150 mg, Intravenous, ONCE, 1 dose, On [place] 12/07/19 at 1315, Warning Vesicant/Irritant Medication , Routine AMIOdarone (Cordarone; Pacerone) tablet 400 Given 01/2020 12:28 PM EDT 400 mg mg 400 mg, Oral, 2 TIMES DAILY, First dose on Sun12/08/19 at 1230, Until Discontinued, Routine apixaban (Eliquis) tablet 5 mg Given 12/08/2019 9:25 AM EDT 5 mg 5 mg, Oral, 2 TIMES DAILY, First dose on Sun12/08/19 at 0930, Until Discontinued, Anticoagulant, Routine, Restricted anticoagulant, choose the most appropriate response: Approved indication of non-valvular atrial fibrillation aspirin chewable tablet 81 mg Given 12/08/2019 9:25 AM EDT 81 mg 81 mg, Oral, DAILY, First dose on Sun12/01/19 at 1645, Until Discontinued, Routine Given 12/07/2019 8:24 AM EDT 81 mg Given 12/06/2019 9:55 AM EDT 81 mg aspirin EC tablet 81 mg Given 11/30/2019 8:16 AM EDT 81 mg 81 mg, Oral, DAILY, First dose on Sun11/29/19 at 1330, Until Discontinued, Routine cefPODOXime (Vantin) tablet 200 mg Given 12/05/2019 8:08 PM EDT 200 mg 200 mg, Oral, 2 TIMES DAILY, 4 doses, First dose on Sun12/04/19 at 0900, Last dose on Sun12/05/19 at 2100, Routine, Indication for (Active or Suspected): Pneumonia ([facility]Care) Given 12/05/2019 10:14 AM EDT 200 mg [...] min and monitor patient for 30 min, Routine, Indication for (Active or Suspected): Other (See comment) cholecalciferol (Vitamin D3) (Vitamin Given 12/08/2019 9:25 [...] 75 mg, Oral, DAILY, First dose on Sun11/30/19 at 0900, Until Discontinued, Recovery (Recovery-Hospital Unit), [...] to 4.8-14.4 mL/hr), Intravenous, CONTINUOUS, Starting on Sun11/30/19 at 0930, Until Sun12/02/19 at 0924, Titrate [...] CONTINUOUS, Starting on 11/29/19 at 1930, Until [place] 11/30/19 at 0029, Please stop drip once bottle is finished. ezetimibe (Zetia) tablet 10 mg Given 12/08/2019 10:42 AM EDT 10 mg 10 mg, Oral, DAILY, First dose on Sun12/01/19 at 1000, Until Discontinued, Routine Given 12/07/2019 [...] 20 mg, Intravenous, ONCE, 1 dose, On Sun12/02/19 at 0945, STAT furosemide (Lasix) tablet 20 mg Given 12/04/2019 9:18 AM EDT 20 mg 20 mg, Oral, DAILY, First dose on [place] 12/04/19 at 0900, Until Discontinued, Routine furosemide (Lasix) tablet 20 mg Given 12/07/2019 8:24 AM EDT 20 mg 20 mg, Oral, DAILY, First dose on Sun12/06/19 at 1730, Until Discontinued, Routine Given 12/06/2019 7:15 PM EDT 20 mg furosemide (Lasix) tablet 20 mg 20 mg, Oral, EVERY OTHER DAY, First dose (after last modification) on Sun12/09/19 at 0900, Until Discontinued, Routine furosemide (Lasix) [...] required Heparin UFH Level - Per Protocol, Routine, Indication: Other (document in comments field):, Comments: apical akinesis (thrombus prophylaxis), afib New Bag 12/07/2019 11:23 AM EDT 1,100 Units/hr 22 mL/hr Rate/Dose Verify 12/07/2019 7:04 AM EDT 1,100 Units/hr 22 mL/hr iohexoL (OMNIPAQUE) 350 mg/mL solution 0-200 Given 4:36 PM EDT 65 mLs mL 0-200 mL, Intravenous, ONCE PRN, 1 dose, Starting on [place] 11/30/19 at 1636, Until [place] 11/30/19 at 1636, Per Protocol, Warning Vesicant/Irritant [...] mL/hr 250 mL/hr, Intravenous, CONTINUOUS, Starting on [place] 12/07/19 at 0145, Until [place] 12/07/19 at 0239 levoFLOXacin (LEVAQUIN) 750 mg in New Bag 11/30/2019 11:03 PM EDT 750 mg 100 mL/hr dextrose 5% 150 mL 750 mg, Intravenous, at 100 mL/hr, EVERY 24 HOURS, First dose on [place] 11/30/19 at 2300, Until Discontinued, Routine, Indication for (Active or Suspected): Pneumonia ([facility]Care), Restricted Antibiotic: Please indicate the most appropriate choice: Ordered from Sepsis Order Set lisinopriL (Prinivil;Zestril) tablet 2.5 mg Given 12/08/2019 9:27 AM EDT 2.5 mg 2.5 mg, Oral, DAILY, First dose (after last modification) on 12/08/19 at 0930, Until Discontinued, Routine magnesium sulfate 2 g in sterile water New Bag 11/29/2019 3:26 PM EDT 2 g 25 mL/hr 50 mL 2 g, Intravenous, ONCE, 1 dose, On [facility] 11/29/19 at 1530, Administer over 120 Minutes [...] 2 g, Intravenous, ONCE, 1 dose, On Sun12/04/19 at 0230, Administer over 120 Minutes magnesium [...] 3 mg, Oral, NIGHTLY, First dose on 11/30/19 at 2215, Until Discontinued, Routine Given 12/06/2019 8:05 PM EDT 3 mg Given 12/05/2019 8:08 PM EDT 3 mg metoprolol (LOPRESSOR) 5 mg/5 mL injecti on 1 dose, Starting on 12/07/19 at 1226, Until Sun12/07/19 at 1241, Amaya Anderson: cabinet override metoprolol (LOPRESSOR) injection 5 mg Given 12/02/2019 10:47 AM EDT 5 mg 5 mg, Intravenous, ONCE, 1 dose, On Sun12/02/19 at 1100, Hold for SBP<90, HR <60 metoprolol (LOPRESSOR) injection 5 mg Given 12/04/2019 11:15 AM EDT 5 mg 5 mg, Intravenous, ONCE, 1 dose, On Sun12/04/19 at 1115 metoprolol (LOPRESSOR) injection 5 mg Given 12/07/2019 12:41 PM EDT 5 mg 5 mg, Intravenous, EVERY 5 MIN PRN, 3 doses, Starting on 12/06/20 at 1236, Until Sun12/08/19 at 1811, Elevated Heart Rate, for HR >140, Kelly MARC if SBP < 80 metoprolol succinate XL (Toprol-XL) tablet Given 12/04/2019 11:12 AM EDT 100 mg 100 mg 100 mg, Oral, DAILY, First dose (after last modification) on Sun12/04/19 at 1115, Until Discontinued, DO NOT CRUSH [...] 100 mg, Oral, NIGHTLY, First dose on Sun12/06/19 at 2100, Until Discontinued, DO NOT CRUSH [...] 1400, Last dose on Sun12/07/19 at 0900, Routine, Indication for (Active or Suspected): Anaerobic infection-Respiratory Given 12/03/2019 3:11 PM EDT 500 mg Given 12/03/2019 8:29 AM EDT 500 mg metroNIDAZOLE (Flagyl) tablet 500 mg Given 12/05/2019 8:08 PM EDT 500 mg 500 mg, Oral, 3 TIMES DAILY, 6 doses, First dose on Sun12/04/19 at 0900, Last dose on Sun12/05/19 at 2100, Routine, Indication for (Active or Suspected): Anaerobic infection-Respiratory Given 12/05/2019 4:00 PM EDT 500 mg [...] Oral, 2 TIMES DAILY, First dose on Sun11/30/19 at 0945, Until Discontinued, DO NOT CRUSH [...] RN) 150 mg, Intravenous, ONCE, 1 dose, [place] at 1315, Warning Vesicant/Irritant Medication , Routine [...] 09 (Given - Provider: Amaya Anderson RN) 81 [...] cholecalciferol., Routine clopidogreL (Plavix) tablet 75 mg 09 (Given - Provider: Rebecca Anderson RN) 08 (Given - Provider: Amaya Anderson RN) 09 (Given - Provider: Amaya Anderson RN) 75 mg, Oral, DAILY, First dose on Sun at 0900, Until Discontinued, Recovery (Recovery-Hospital Unit), Routine colchicine (Colcrys) tablet 0.6 mg (CANCELED) 953 ([place] l[place] - Provider: Amaya Anderson RN) 08 (Given - Provider: Amaya Anderson RN) 0.6 mg, Oral, DAILY, First dose (after l ast modification) on Sun12/03/19 at 0900, Until Discontinued, Maximum dose: 2.4 mg/24 hours. DO NOT SPLIT, CRUSH OR OPEN, STAT ezetimibe (Zetia) tablet 10 mg 0954 (Given - Provider: Amaya noel RN) 0824 (Given - Provider: Amaya Anderson RN) 1042 (Given - Provider: Amaya Anderson RN - Comment: pharmacy delay) 10 mg, Oral, DAILY, First dose on 07/21 at 1000, Until Discontinued, Routine furosemide (Lasix) tablet 20 mg (CANCELED) 1914 (Given - Provider: Amaya Anderson RN) 0824 (Given - Provider: Amaya Anderson RN) 0900 (Not Giv en - Provider: Amaya Anderson RN - Reason: Per MD Order) 20 mg, Oral, DAILY, First dose on 12/06/19 at 1730, Until Discontinued, Routine furosemide (Lasix) tablet 20 mg 20 mg, Oral, EVERY OTHER DAY, First dose (after last modification) on Sun12/09/19 at 0900, Until Discontinued, Routine lisinopriL (Prinivil;Zestril) tablet 2.5 mg 09 (Given - Provider: Amaya Anderson RN) 2.5 mg, Oral, DAILY, First dose (after l ast modification) on Sun12/08/19 at 0930, Until Discontinued, Routine magnesium sulfate 2 g in sterile water 50 mL (COMPLETE D) 0517 (New Bag - Provider: Mukesh Bentley RN)0717 (Stopped - Provider: Amaya Anderson RN) 2 g, Intravenous, ONCE, 1 dose, 12/06/19 at 0515, Ad spool winder over 120 Minutes magnesium sulfate 2 g [...] metoprolol succinate XL (Toprol-XL) tablet 12.5 mg 0926 (Given - Provider: Amaya Anderson RN) 12.5 [...] tarting 12/01/19 at 1348, Until Sun12/08/19 at 181, Itching, hives and itching, Notify service if given. May give up to 400 mg per day, Routine heparin (porcine) injection 0-8,000 Units (CANCELED) 2 336 (Given - Provider: Mukesh Bentley RN) 0-8,000 Units, Intravenous, BOLUS PER BELÉN ELAINE PROTOCOL, Starting 12/06/19 at 0926, Until Sun12/08/19 [...] rting 11/29/19 at 1125, Until Sun12/08/19 at 1811, [...] Starting Sun at 0615, Until Sun12/08/19 at 181, Constipation, Routine potassium chloride ER (K-Dur/Klor-Con) tablet 20 mEq(Linked Group 2) 0630 (See Alternative - Provider: Mukesh Bentley RN)1645 (Given - Provider: Amaya Anderson RN) 0230 (Given - Provider: Russell Ventura RN)1354 (Given - Provider: Amaya Anderson RN) 20 mEq, Oral, EVERY 4 HOURS PRN, Startin g 11/30/19 at 2016, Until Sun12/08/19 at 181, hypokalemia, Administer for [...] 4 HOURS PRN, Startin g 11/30/19 at 2016, Until Sun12/08/19 at 181, hypokalemia, Administer for [...] dose o n Sun12/01/19 at 0400, Until Discontinued
Verify nicotine 14 mg/24 hr patch.
And nicotine (NICODERM CQ) 14 mg/24 hr patch Patch RemovalJump to med Transdermal, DAILY, First dose on 07/21 at 1600, Until Discontinued
Remove nicotine 14 mg/24 hr patch
Group 2: potassium chloride ER (K-Dur/Klor-Con) tablet 20 mEqJump to med 20 mEq, Oral, EVERY 4 HOURS PRN, Startin g [place] 11/30/19 at 2016, Until Sun12/08/19 at 1811, hypokalemia
Administer for serum potassium (mMol/L) of 3.9 - 4 See instructions for Potassium Protocol in online policies.
Routine Or potassium chloride ER (K-Dur/Klor-Con) tablet 40 mEqJump to med 40 mEq, Oral, EVERY 4 HOURS PRN, Startin g [place] 11/30/19 at 2016, Until Sun12/08/19 at 1811, hypokalemia
Administer for serum potassium (mMol/L) of 3.6 - 3.8 See instructions for Potassium Protocol in online policies.
Routine documented in this encounter Care Teams [employer]maker App[employer]ice [employer] Relationship Specialty Start Date End Date France Lam MD PCP - General 05/02/13 02/04/20 [address] [place] [address] documented as of this encounter
--- OUTSIDE RECORDS SUMMARY | 2022-04-06 10:59 | XMS_ITS | Encounter Summary ---
:1945 [place] [address] Care Team Providers Name Role Phone France aLm MD Primary Care Provider Reason for Visit Auth/Cert Specialty Diagnoses / Procedures Referred By Contact Refer red To Contact Diagnoses STEMI (ST elevation myocardial infarction) STEMI Procedures CARDIAC CATHETERIZATION Referral ID Status Reason Start Date Expiration Date Visits Requ ested Visits Authorized [id number] 1 1 Encounter Details Date Type Department Care Team Description 11/29/2019 Surgery Sales Counselor Gretchen Corral, CARDIAC CATHETERIZATION [facility] [place] [address] [place] [phone] (Wo rk) Social History Tobacco Use Types [...] Luis Salinas Patient Age: 74 y.o. Language: Latvian Race: White Ethnicity: Not nor Admit date: [...] months on: antiplatelet therapy at discretion of vendor management specialist - Repeat TTE in 3 months to reassess LV function - Repeat BMP in 1-2 weeks given recent start lisinopril - Referred to lipid clinic for consideration of PCSK-9 inhibitor given STEMI with intolerance of statins - Started on amiodarone this admission for recurrent rapid atrial flutter with rates ~170, recommendcontinued assessment of necessity of rhythm control strategy with vendor management specialist - Amiodarone monitoring recommendations as below - [...] please contact your inpatient physician through the [facility] Long Chain Dyeing Machine Operator . Issues after hours and on [...] took two full strength aspirinand came to [facility] ED. At there was found to [...] and Compazine. He was transferred directly to [facility] via [facility] for further management. Patient had an emergent PCI with 3 MACARIO stents placed to his RCA, with mild disease of LCX (report pending) at [facility]. He was found to be persistently hypotensive requiring Levo up to 10mcg/min. He was transferred to [facility] after the cath procedure. Bedside RHC showed CI 2.12, PAWP 11, PAP 38/15 indicating hypovolemic state. He received 1L bolus of NS with improvement of his blood pressure to 124/61. History of PAD, HLD - had side reactions to statins - so taking niacin and red rye grain. Chronic active smoker with more than 65 pack years. Family history of SD in father and two uncles. He's takingbaby [...] ip as described above. On arrival at [facility] he was taken for cardiac cath where [...] priority for the procedure was Emergent. [facility] for the procedure was [...] number below. Electronically signed by: Estefani Harris [facility] ([phone]), at 11/29/2019 4:[address] Head wo Contrast (Generic) (Exam End: 11/30/2019 10:41 AM) Impression Focal hemorrhage with small amount of adjacent edema projecting in the region of the left optic tract. Thank you for letting us participate in the care of this patient. For questions regarding this report, please contact the number below. Electronically signed by: Angel Luis Barboza MD, [facility] ([phone]), at 11/30/2019 12:[address] Head wo Contrast (Generic) (Exam End: 11/30/2019 4:36 PM) Impression Head CT: Stable hemorrhage in the region of the left optic tract. CTA: Negative exam. No abnormal vasculature in the area of hemorrhage. Thank you for letting us participate in the care of this patient. For questions regarding this report, please contact the number below. Angiogram [place] [facility] [place] (Exam End: 11/30/2019 4:36 PM) Impression Head CT: Stable hemorrhage in the region of the left optic tract. CTA: Negative exam. No abnormal vasculature in the area of hemorrhage. Thank you for letting us participate in the care of this patient. For questions regarding this report, please contact the number below. Electronically signed by: Angel Luis Barboza MD, [facility] ([phone]), at 11/30/2019 5:04 PM MRI Brain wo [...] Electronically signed by: Angel Luis Barboza MD, [facility] ([phone]), at 12/01/2019 8:02 PM XR Chest One [...] number below. Electronically signed by: Latoya Ivey, [facility] ([phone]), at 11/30/2019 8:[address] Head wo [...] number below. Electronically signed by: Merari Collins [facility] ([phone]), at 12/01/2019 3:53 PM XR Chest One View (Exam End: 12/02/2019 1:00 PM) Impression Slightly increased small bibasilar pleural effusions and atelectasis. Thank you for letting us participate in the care of this patient. For questions regarding this report, please contact the number below. Electronically signed by: Ashly Marley [facility] ([phone]), at 12/02/2019 1:[address] Cardiac for [...] number below. Electronically signed by: Roselyn Luciano [facility] ([phone]), at 12/04/2019 6:16 PM MRI Brain wwo Contrast (Generic) (Exam End: 12/05/2019 7:59 PM) Impression No significant interval change. Thank you for letting us participate in the care of this patient. For questions regarding this report, please contact the number below. Electronically signed by: Merari Collins [facility] ([phone]), at 12/05/2019 10:[address] Head wo [...] number below. Electronically signed by: Merari Collins [facility] ([phone]), at 12/06/2019 10:06 PM Pending Studies and Lab Data: N/A Discharge Conditions/Prognosis: stable Discharge to: home Updated Allergies/ADRs: Allergies Allergen Reactions ??? Penicillins Pt doesn't remember reaction ??? Ltndiie-Fyq-Ihj Reductase Inhibitors Stiff neck, upset stomach, back [...] medications at another hospital and then at [facility] you had a stent placed in a [...] FOR ONE MONTH AND THEN STOP. Your vendor management specialist may tell you to start this medication again after one year. Clopidogrel (Plavix) 75 mg daily - This medication will help prevent clots from forming in your blood, which will help protect the stent that was placed in your heart vessel. TAKE THIS FOR ONE YEAR ANDTHEN DISCUSS WITH YOUR LABORER SAWMILL WHETHER TO STOP. Amiodarone 400mg twice daily [...] follow up: Your primary care provider and vendor management specialist will manage your blood thinner (apixaban). You do not need lab monitoring of this medication. Diet: Please consume a healthy diet low in cholesterol Follow up Appointments: 12/10/2019 at 3:10PM with PCP Angel Luis Lott Future Appointments Date Time Provider Department Center 12/23/2019 1:30 PM Alfreda Salas APRN [facility] [id number] 12/26/2019 9:40 AM Merlin Sanchez MD [facility] CARD 4A [facility] 12/30/2019 3:40 PM Gretchen Yoon MD [address] Future Appointments and Orders Future Appointments and Orders Future Appointments Provider Department Dept Phone 12/23/2019 1:30 PM Alfreda Salas APRN Neurosurgery at [facility] Arrive at: Home [phone] Please do not come in for this visit. Your provider will call you at the number you provided. 12/26/2019 9:40 AM Merlin Sanchez MD Cardiology at [facility] Arrive at: Home [phone] Please do not come in for this visit. Your provider will call you at the number you provided. 12/30/2019 3:40 PM Gretchen Yoon MD Cardiology at [facility] Arrive at: Home [phone] Please do not come in for this visit. Your provider will call you at the number you provided. Future Orders Complete By Expires Referral to Cardiac Rehab [[id number] Custom] As directed Process Instructions: If no progress note charted, please enter Clinical details in comments. Scheduling Instructions: Questions: My question or request is: STEMI. Cardiac rehab at [facility] Referral to [facility] [REF43 Custom] As directed Process Instructions: If no progress note charted, please enter Clinical details in comments. Scheduling Instructions: Questions: My question or request is: patient with inferior stemi with history of statin allergy (rash) - please evaluate for psck9 inhibitor. Referral to Home Health - at DISCHARGE [IZV8828 CPT(R)] As directed Process Instructions: Scheduling Instructions: Comments: DOCUMENTATION FOR VNA SERVICES PATIENT'S LOCATION: Angel Luis Corcoran [address] [address] (home) Manhole Stripper's Name: Self In discussion with the attending physician, it is certified that this patient is under his/her care and that MD, or an TRANSPORT TANK TECHNICIAN, STOCK TRANSFER CLERK, or PA who is working directly with him/her, had a gipj-mg-jgbv encounter that meets the physician ekvs-us-dpoy encounter requirements with this patient on 12/07/2019. [...] for managing ADLs. HOME HEALTH CARE AGENCY: [facility], PHONE: [phone] FAX: [phone] Start of care: 24-48 hours after hospital [...] MD [address] / [place] [address] All A agencies which cover the area of patient's residence have been reviewed, either verbally or in writing, and patient/family have chosen the home health care agency noted. Questions: Agency name and contact information: [facility] Patient location post discharge: Home What services are requested: Registered Nurse Physical Therapy Occupational Therapy Start date: Responsible MD post discharge contact info: PCP Your PCP: France Lam MD [phone] For questions regarding this document or issues relating to this hospitalization on the Cardiology Service, please contact your inpatient physician through the [facility] Long Chain Dyeing Machine Operator . Issues after hours and on weekends will be handled by the Performance Reporter on-call. Patient Instructions: Neurology Your Diagnosis: Left [...] follow-up appointment in the neurology clinic at [facility]. See below for the appointment time. If [...] 1:30 PM Alfreda Salas APRN Neurosurgery at [facility] Arrive at: Home [phone] Please do not come in for this visit. Your provider will call you at the number you provided. 12/26/2019 9:40 AM Merlin Sanchez MD Cardiology at [facility] Arrive at: Home [phone] Please do not come in for this visit. Your provider will call you at the number you provided. 12/30/2019 3:40 PM Gretchen Yoon MD Cardiology at [facility] Arrive at: Home [phone] Please do not come in for this visit. Your provider will call you at the number you provided. Future Orders Complete By Expires Referral to Cardiac Rehab [[id number] Custom] As directed Process Instructions: If no progress note charted, please enter Clinical details in comments. Scheduling Instructions: Questions: My question or request is: STEMI. Cardiac rehab at [facility] Referral to [facility] Treatment Center [REF43 Custom] As directed Process Instructions: If no progress note charted, please enter Clinical details in comments. Scheduling Instructions: Questions: My question or request is: patient with inferior stemi with history of statin allergy (rash) - please evaluate for psck9 inhibitor. Referral to Home Health - at DISCHARGE [KFD0461 CPT(R)] As directed Process Instructions: Scheduling Instructions: Comments: DOCUMENTATION FOR VNA SERVICES PATIENT'S LOCATION: [address] [address] (home) Manhole Stripper's Name: Self In discussion with the attending physician, it is certified that this patient is under his/her care and that MD, or an TRANSPORT TANK TECHNICIAN, STOCK TRANSFER CLERK, or PA who is working directly with him/her, had a svfu-lo-ijxe encounter that meets the physician pgnf-zq-stbj encounter requirements with this patient on 12/07/2019. [...] for managing ADLs. HOME HEALTH CARE AGENCY: [facility], PHONE: [phone] FAX: [phone] Start of care: 24-48 hours after hospital [...] MD [address] / [place] [address] All A agencies which cover the area of patient's residence have been reviewed, either verbally or in writing, and patient/family have chosen the home health care agency noted. Questions: Agency name and contact information: [facility] Patient location post discharge: Home What services are requested: Registered Nurse Physical Therapy Occupational Therapy Start date: Responsible MD post discharge contact info: PCP Discharge References/Attachments Atrial Fibrillation (Latvian) Cardiac Rehabilitation (Latvian) Heart Failure (Latvian) Heart Failure: Limiting Sodium (Latvian) Hemorrhagic Stroke: General Info (Latvian) Smoking: Stopping (Latvian) Stroke Rehabilitation: General Info (Latvian) Pulmonary Embolism (Latvian) Riki Stevens MD PGY-3, Internal Medicine Cardiology S2, #[id number] Associated attestation - Paris Dodd MD - 12/09/2019 4:44 PM EDT Cardiology Attending Discharge Addendum I was the assigned attending vendor management specialist for this clinical encounter. For the purposes [...] complications include novel onset, paroxysmal atrial fibrillation [[id number]: 5] & L-sided diplopia with potential hemineglect [...] My contact information: Paris Matt MD MPH [address], [place] [address] (office); Pager #[phone] Email: documented in this encounter Discharge Instructions Patient InstructionsFiRiki de jesus MD - 12/02/2019 9:56 AM EDT Images from the original note were not included. Why you were hospitalized: You had a heart attack. You received clot-busting medications at another hospital and then at [facility] you had a stent placed in a [...] FOR ONE MONTH AND THEN STOP. Your vendor management specialist may tell you to start this medication again after one year. Clopidogrel (Plavix) 75 mg daily - This medication will help prevent clots from forming in your blood, which will help protect the stent that was placed in your heart vessel. TAKE THIS FOR ONE YEAR ANDTHEN DISCUSS WITH YOUR LABORER SAWMILL WHETHER TO STOP. Amiodarone 400mg twice daily [...] follow up: Your primary care provider and vendor management specialist will manage your blood thinner (apixaban). You do not need lab monitoring of this medication. Diet: Please consume a healthy diet low in cholesterol Follow up Appointments: 12/10/2019 at 3:10PM with PCP Angel Luis Lott Future Appointments Date Time Provider Department Center 12/23/2019 1:30 PM Alfreda Salas APRN [facility] [id number] [facility] 12/26/2019 9:40 AM Merlin Sanchez MD [facility] CARD 4A [facility] 12/30/2019 3:40 PM Gretchen Yoon MD [facility] CARD 4A [facility] Future Appointments and Orders Future Appointments and Orders Future Appointments Provider Department Dept Phone 12/23/2019 1:30 PM Alfreda Salas APRN Neurosurgery at [facility] Arrive at: Home [phone] Please do not come in for this visit. Your provider will call you at the number you provided. 12/26/2019 9:40 AM Merlin Sanchez MD Cardiology at [facility] Arrive at: Home [phone] Please do not come in for this visit. Your provider will call you at the number you provided. 12/30/2019 3:40 PM Gretchen Yoon MD Cardiology at [facility] Arrive at: Home [phone] Please do not come in for this visit. Your provider will call you at the number you provided. Future Orders Complete By Expires Referral to Cardiac Rehab [[id number] Custom] As directed Process Instructions: If no progress note charted, please enter Clinical details in comments. Scheduling Instructions: Questions: My question or request is: STEMI. Cardiac rehab at [facility] Referral to [facility] Treatment Center [REF43 Custom] As directed Process Instructions: If no progress note charted, please enter Clinical details in comments. Scheduling Instructions: Questions: My question or request is: patient with inferior stemi with history of statin allergy (rash) - please evaluate for psck9 inhibitor. Referral to Home Health - at DISCHARGE [VFD5744 CPT(R)] As directed Process Instructions: Scheduling Instructions: Comments: DOCUMENTATION FOR VNA SERVICES PATIENT'S LOCATION: [address] [address] (home) Manhole Stripper's Name: Self In discussion with the attending physician, it is certified that this patient is under his/her care and that MD, or an TRANSPORT TANK TECHNICIAN, STOCK TRANSFER CLERK, or PA who is working directly with him/her, had a vsmz-cf-sbzc encounter that meets the physician hacd-jx-ckpu encounter requirements with this patient on 12/07/2019. [...] for managing ADLs. HOME HEALTH CARE AGENCY: [facility], PHONE: [phone] FAX: [phone] Start of care: 24-48 hours after hospital [...] MD [address] / [place] [address] All A agencies which cover the area of patient's residence have been reviewed, either verbally or in writing, and patient/family have chosen the home health care agency noted. Questions: Agency name and contact information: [facility] Patient location post discharge: Home What services are requested: Registered Nurse Physical Therapy Occupational Therapy Start date: Responsible MD post discharge contact info: PCP Your PCP: France Lam MD [phone] For questions regarding this document or issues relating to this hospitalization on the Cardiology Service, please contact your inpatient physician through the [facility] Long Chain Dyeing Machine Operator . Issues after hours and on weekends will be handled by the Performance Reporter on-call. Patient Instructions: Neurology Your Diagnosis: Left [...] follow-up appointment in the neurology clinic at [facility]. See below for the appointment time. If you do not have an appointment, you will be called with a time/date for this appointment. ??? Primary Care Provider: Please follow up with your Primary Care Provider within one to 2 weeks ofdischarge. AttachmentsThe following attachments cannot be sent through Care Everywhere. Atrial Fibrillation (Latvian)Cardiac Rehabilitation (Latvian)Heart Failure (Latvian)Heart Failure: Limiting Sodium (Latvian)Hemorrhagic Stroke: General Info (Latvian)Smoking: Stopping (Latvian)Stroke Rehabilitation: General Info (Latvian)Pulmonary Embolism (Latvian)documented in this encounter Medications at Time of [...] consulted in the interim. Vikash Rodriguez Pager: [phone] Paris Dodd MD - 12/08/2019 8:57 AM [...] complications include novel onset, paroxysmal atrial fibrillation [[id number]: 5] & L-sided diplopia with potential hemineglect [...] consulted in the interim. Vikash Rodriguez Pager: [phone] Paris Dodd MD - 12/07/2019 9:55 AM [...] complications include novel onset, paroxysmal atrial fibrillation [DQA5KT4EUKJ: 5] & L-sided diplopia with potential hemineglect [...] complications include novel onset, paroxysmal atrial fibrillation [WJY3UQ2LHSA: 5] & L-sided diplopia with potential hemineglect [...] complications include novel onset, paroxysmal atrial fibrillation [IQM5NY1YZNX: 5] & L-sided diplopia with potential hemineglect [...] today; additional complications include paroxysmal atrial fibrillation [NIP1SY0CDJS: 4] c/b possible cardioembolic stroke, ICH from [...] length from neck/greatest diameter to back wall: RUSSIAN 91, CAU 13: 19 mm CORTES 1, [...] a non-culprit artery. S/P DESx3 in the vqcyibub-is-yrircf RCA. Aspiration thrombectomy performed, and integrellin bolus [...] complications include novel onset, paroxysmal atrial fibrillation [WRC0AW6ERAG: 5] & L-sided diplopia with potential hemineglect [...] R occipital cardioembolic stroke #Paroxysmal Afib with UN1MFYWU2Q score of 5 #New segmental bilateral PEs [...] Glasgow MD PGY1, Internal Medicine Cardiology S2, #[id number] Associated attestation - Paris Dodd MD - 12/05/2019 2:59 PM EDT I was the assigned attending vendor management specialist for this clinical encounter. For the purposes [...] 12/04/2019 10:36 AM EDT Office of Care Management(OCM)/Crate Liner(CM)/Discharge Planning Service: Cardiology S2 team CM Bernie Alexander,RN,BSN,MA,ACM pgr [phone] Reviewed record and in Cardiology Rounds with MD team,CMs, instrument person, LIBRARY CUSTOMER SERVICE CLERK. Pt is anticipated ready for d/c later [...] AD to his PCP and to any [facility] appt for each to have on file. [...] complications include novel onset, paroxysmal atrial fibrillation [SXQ1MG4URSI: 4] & L-sided diplopia with potential hemineglect [...] a non-culprit artery. S/P DESx3 in the ryerwkdt-id-zlhybo RCA. Aspiration thrombectomy performed, and integrellin bolus [...] complications include novel onset, paroxysmal atrial fibrillation [VUV0DU5XAQX: 5] & L-sided diplopia with potential hemineglect [...] R occipital cardioembolic stroke #Paroxysmal Afib with NP3CTFFC9F score of 5 - No anticoagulation for [...] Glasgow MD PGY1, Internal Medicine Cardiology S2, #7514 I have seen the patient and reviewed [...] in my clinic. Gretchen Yoon MD Pager [phone] Derian Pascual RN - 12/03/2019 9:29 AM [...] Discharge: None Electronically signed: Derian Pascual RN, Crate Liner Pgr: [phone] 12/03/2019 9:29 AM Gretchen Yoon [...] complications include novel onset, paroxysmal atrial fibrillation [ZYT9JD1QFEM: 4] & L-sided diplopia with potential hemineglect [...] a non-culprit artery. S/P DESx3 in the ttohsbiz-ad-uanchg RCA. Aspiration thrombectomy performed, and integrellin bolus [...] complications include novel onset, paroxysmal atrial fibrillation [VJH1QI3NJKU: 5] & L-sided diplopia with potential hemineglect [...] [facility] with [facility]. Patient voiced strong will to quit smoking now, understood that we have resources available for help. Plan [P]: --Neurologic-- # Concern for Left-Sided Diplopia, r/o Hemineglect # Concern for CVA, last-known well 11/29/19 - MRI showed possible cardioembolic stroke #Afib with KU2QZUWB4C score of 5 - Stroke Team Consulted; [...] Anticoagulation/Arrhythmia # Novel Onset, Paroxsymal Atrial Fibrillation [CTC1BE3PGOW: 5] - Hold off anticoagulation for at [...] w straight cath prn # Nutrition - [facility] Diet, 2g Na. -- Hematology/Oncology-- # Mild [...] Glasgow MD PGY1, Internal Medicine Cardiology S2, #3834 I have seen the patient and reviewed the resident's above history and I agree with the details as written. The assessment and plan were formulated in discussion with me and I agree with them as documented. Gretchen Yoon MD Pager [phone] Raul Hein RN - 12/03/2019 5:55 AM [...] Negative mcL Appearance UA Clear Clear Spec Free Soil UA 1.026 1.006 - 1.030 Color UA [...] PGY3 Neurology Resident 12/01/2019 Vascular Neurology Pager [phone] Neurology Attending Attestation I evaluated the patient [...] documented. Deepthi Roman MD Vascular Neurology Standard [facility] Swallow Screen: This screen is to be [...] diet as medical provider deems appropriate. Consider CAREER DEVELOPMENT SPECIALIST consult for full evaluation and diet [...] complications include novel onset, paroxysmal atrial fibrillation [XTF3PJ2ABSY: 4] & L-sided diplopia with potential hemineglect [...] a non-culprit artery. S/P DESx3 in the omnzexux-ht-mqvfyw RCA. Aspiration thrombectomy performed, and integrellin bolus [...] complications include novel onset, paroxysmal atrial fibrillation [SMO1KW2YNJV: 5] & L-sided diplopia with potential hemineglect [...] Anticoagulation/Arrhythmia # Novel Onset, Paroxsymal Atrial Fibrillation [[id number]: 5] - Hold off anticoagulation - pending [...] tamsulosin d/t low BP. # [facility] - [facility] [place] Diet -- Hematology/Oncology-- # Mild Thrombocytopenia, unclear [...] Glasgow MD PGY1, Internal Medicine Cardiology S2, #5539 I have seen the patient and reviewed [...] the ICU team. Gretchen Yoon MD Pager [phone] Natalia Claros APRN - 12/02/2019 8:38 AM [...] - We are signing off. Please page [phone] with any questions or concerns. For questions please call NSGY pager [phone] Natalia Claros APRN 12/02/2019 8:38 AM Clinical Documentation Improvement: Active Hospital Problems Diagnosis ??? Acute ST elevation myocardial infarction (STEMI) of inferior wall ??? Intracranial hemorrhage ??? Hyperlipidemia ??? Tobacco abuse ??? Claudication from peripheral vascular disease, left Resolved Hospital Problems No resolved problems to display. Tello Hsu, ASSISTANT ASSOCIATE PROFESSOR - 12/02/2019 2:06 AM EDT 12/01/192009 Oxygen [...] number below. Electronically signed by: Latoya Ivey [facility] ([phone]), at 11/30/2019 8:32 PM ASSESSMENT: Patient states he is breathing easier than last night. Still increased WOB PLAN: Wean FiO2 as tolerated. Patient to CT Scan in afternoon. Upon arrival back in [facility] placed on low flow NC [...] complications include novel onset, paroxysmal atrial fibrillation [[id number]: 4] & L-sided diplopia with potential hemineglect for which CVA evaluationto be pursued. Active Problems/Subjective: - 11/28: admitted for inferior STEMI, RV failure requiring pressor - got lytics, aspirin and plavix load, heparin gtt, and eptifibatide. 3 MACARIO stents to RCA. Brick cath - low wedge & CVP so [...] a non-culprit artery. S/P DESx3 in the fmjyftao-iy-ssptbd RCA. Aspiration thrombectomy performed, and integrellin bolus [...] complications include novel onset, paroxysmal atrial fibrillation [[id number]: 4] & L-sided diplopia with potential hemineglect [...] Anticoagulation/Arrhythmia # Novel Onset, Paroxsymal Atrial Fibrillation [[id number]: 4] - Obtain: TTE - Pending CVA [...] tamsulosin d/t low BP. # Nutrition - [facility] Diet -- Hematology/Oncology-- # Mild Thrombocytopenia, unclear [...] MD, PGY1 PGY3, Internal Medicine Cardiology S2, #6401 I have seen the patient and reviewed [...] down the line. Gretchen Yoon MD Pager [phone] ?? Gretchen Yoon MD Pager [phone] Natalia Claros APRN - 12/01/2019 1:33 AM [...] per primary team For questions please call [facility] pager [phone] Natalia Claros APRN 12/01/2019 7:42 AM Clinical Documentation Improvement: Active Hospital Problems Diagnosis ??? Acute ST elevation myocardial infarction (STEMI) of inferior wall ??? Intracranial hemorrhage ??? Hyperlipidemia ??? Tobacco abuse ??? Claudication from peripheral vascular disease, left Resolved Hospital Problems No resolved problems to display. Tello Hsu, ASSISTANT ASSOCIATE PROFESSOR - 11/30/2019 8:44 PM EDT Respiratory Therapy [...] number below. Electronically signed by: Latoya Ivey [facility] ([phone]), at 11/30/2019 8:32 PM ASSESSMENT: Patient had [...] EDT Narrative:Visited in response to request for Spa Experience Coordinator services. Pt was awake, alert, oriented and in bed. Assessment:Patient coping positively with stresses of illness/hospitalization at this time. Pt says that he is hoping to get better and pt is living with and has children and grandchildren. Pt haspurpose of life and has reason to get getter and to be with family. Outcome: Provided emotional and spiritual support and encouraging presence. Spa Experience Coordinator services accepted.Conversation to build trusting relationship.Provided pastoral [...] complications include novel onset, paroxysmal atrial fibrillation [[id number]: 4] & L-sided diplopia with potential hemineglect for which CVA evaluationto be pursued. Active Problems/Subjective: - Overnight, CVP < 12 for which a total of 1 L IVF provided - Today AM, patient complains of subjectively reported, left-sided hemineglect with floaters and diplopia [see: exam]. - Otherwise, c/o neck pain 2/2 R IJ Brick & L radial A line. Otherwise, denies [...] a non-culprit artery. S/P DESx3 in the lokfzkdg-gj-vmvvvu RCA. Aspiration thrombectomy performed, and integrellin bolus [...] complications include novel onset, paroxysmal atrial fibrillation [[id number]: 4] & L-sided diplopia with potential hemineglect [...] Anticoagulation/Arrhythmia # Novel Onset, Paroxsymal Atrial Fibrillation [[id number]: 4] - Obtain: TTE to confirm rhythm [...] tamsulosin d/t low BP. # Nutrition - [facility] [place] Diet -- Hematology/Oncology-- # Mild Thrombocytopenia, unclear [...] MD, PGY3 PGY3, Internal Medicine Cardiology S2, #4522 I have seen the patient and reviewed [...] down the line. Gretchen Yoon MD Pager [phone] Paola Capps RN - 11/30/2019 6:57 AM EDT PT still requiring 4 of levo, several attempts to titrate down (maps in 70;s) But maps would drop toless than 65. Pt very restless in bed Raising and lowering head denies pain . Integrillin stopped [id number] when bottle complete , urine tea colored [...] PCP: France Lam MD PCP phone #: [phone] Director Of Events: None ID/Chief Complaint: Chest pain History of Present Illness: 74 y.o male with no significant PMH, was in usual state of health until yesterday when he woke up at 4am this morning with severe crushing substernal chest pain 04/10. He took two full strength aspirin and came to [facility] ED. At there was found to [...] and Compazine. He was transferred directly to [facility] via [facility] for further management. Patient had an emergent PCI with 3 MACARIO stents placed to his RCA, with mild disease of LCX (report pending) at [facility]. He was found to be persistently hypotensive requiring Levo up to 10mcg/min. He was transferred to [facility] after the cath procedure. Bedside RHC showed CI 2.12, PAWP 11, PAP 38/15 indicating hypovolemic state. He received 1L bolus of NS with improvement of his blood pressure to 124/61. History of PAD, HLD - had side reactions to statins - so taking niacin and red rye grain. Chronic active smoker with more than 65 pack years. Family history of SD in father and two uncles. He's takingbaby [...] ??? Penicillins Pt doesn't remember reaction ??? Wxqoepa-Zto-Kvm Reductase Inhibitors Stiff neck, upset stomach, back pain Family History: Mother: Father: SD 2 Uncles with MIs Social History: Tobacco: Current active smoker 1 ppd. 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 Vitals: Last value Range [...] in the last 7068 hours. Invalid input(s): [id number] Heme: No results for input(s): LDH, HAPTOGLOBIN, [...] OSH prior to transfer and PCI at [facility]. Massive inferior STEMI with troponin level 20, currently in CVCC due to pressor requirement. BedsideRHC demonstrated evidence of elevated right sided heart failure, but his wedge was wnl. He received 1L bolus with improvement of his blood pressure and reduction of his pressor requirement. PLAN: Admit to Cardiology, S2 Team Pager # [phone] #Inferior STEMI, LEYLA 149 - Resolving EKG [...] inferior STEMI s/p lytic therapy. Transferred to [facility] and underwent successful PCI of the RCA with MACARIO x3. Gretchen Yoon MD Pager [phone] documented in this encounter Procedure Notes Juventino [...] to the planned procedure. Hand Hygiene: The director of midwifery/staff midwife did perform hand hygiene prior to arterial [...] a suspected line-associated infection. Location of Procedure: [facility] Risks and Benefits: The risks [...] to the planned procedure. Hand Hygiene: The director of midwifery/staff midwife did perform hand hygiene prior to line [...] side:right An Introducer (PSI Kit) was used. Hurt. Insertion Side: right. Insertion Site: internal jugular. Catheter Details: Number of Lumens: 1 Catheter Type: heparin-coated The line was placed over a guidewire. Confirmation of Venous Placement: Venous placement was confirmed by transducing the pressure. Introducer Insertion Attempts: 1 Comments: Floating the Brick-Mo Catheter Attempts: 1 Comments: Sterile Dressing: Biopatch [...] better pt back in SR. Please page [phone] for any more cares or concerns Plan [...] complications include novel onset, paroxysmal atrial fibrillation [[id number]: 5]& L-sided diplopia with potential hemineglect for [...] Total Evaluation Minutes, Occupational Therapy: 10 Pager: [phone] FRANCINE Nuñez Occupational Therapy Rehabilitation Department Plan [...] complications include novel onset, paroxysmal atrial fibrillation [[id number]: 5] & L-sided diplopia with potential hemineglect [...] hand rails). Baseline Mobility: Independent. Drives. Shares re etcher with his , however her mobility is [...] plan as stated. Time IN / OUT: 0360-5151 Total Evaluation Minutes, Physical Therapy: 15(gtx1) Barbara Baldwin, PT Pager: [phone] Physical Therapy Inpatient Rehabilitation Department Plan of [...] he receives all he needs through the [facility]. Consult refused. Romain Tran, MSN, RN-, [facility] Tobacco Ruby On Rails Web Developer [facility] Pager #[phone] Plan of Care - Romain Oglesby OT [...] complications include novel onset, paroxysmal atrial fibrillation [FOW5UO4AIVT: 5] & L-sided diplopia with potential hemineglect [...] and measurable assessment of functional outcome. Pager: [phone] ROMAIN OGLESBY OT 12/03/2019 Occupational Therapy Rehabilitation [...] in an outpatient cardiac rehabilitation program at [facility] was discussed. Patient agrees to a referral to this program. His has been a cardiac rehab patient at [facility] and he is familiar with the program. [...] complications include novel onset, paroxysmal atrial fibrillation [WZG3PD3KTZH: 5] & L-sided diplopia with potential hemineglect [...] hand rails). Baseline Mobility: Independent. Drives. Shares re etcher with his , however her mobility is [...] in this evaluation. Time IN / OUT: 6062-2515 Total Evaluation Minutes, Physical Therapy: 25(eval, gtx1) Barbara Baldwin, PT Pager: [phone] Physical Therapy Inpatient Rehabilitation Department Consult Note [...] Please contact JOHANNA NOBLES RN on pager [phone] or the wound care team at [phone] or pager [phone] skin and wound care concerns or questions. [...] [place] would be surrogate decision maker per [place] surrogate decision making law. Any patient receiving carspousee at [facility] must abide by [place] law. The hierarchy for surrogate decisionmaking is: [...] (i) The agent with financial power of bobbin washer or a conservator appointed in accordance with [...] Insurance: N/A Prescription Coverage: Yes Preferred Pharmacy: [place], [place] Other: No Primary Care Provider: France Lam MD [phone] Patient/Caregiver Goals of Treatment: Return home Potential Needs for Transition of Care: Rehab/SNF: Based on discussions with the multi-disciplinary healthcare team, the patient would benefit from SNF level of care at discharge. ?? I have met with the patient to discuss discharge planning needs. I have provided the [facility] [place], Officeof Care Management letter from the Food Equipment Service Technician pertaining to rehab referrals. I have also provided a letter describing our affiliations within the [facility] and educated them about their right [...] to: ?? [facility]. [facility] [address] [place] [address] ?? [address]. [address] , [place] [address] Note routed to Human Resources Operations Coordinator who will communicate referrals to facilities and provide any required information. Home Health: If therapies recommend home w/ VNA, the patient has been provided a list of Home Health Agencies/DME vendors which serve their preferred geographic area. A letter describing our affiliations was reviewed with them and they were educated about their right to choose where referrals are placed. Patient requests referral to [facility] [employer]. PHONE: [phone] FAX: [phone] Referral routed to the Human Resources Operations Coordinator for matching with agency/vendor and to provide [...] Insured w/ Medicare. Gets medications filled at [facility] in [place], [place]. Son to transport at discharge Plan: Discharge dispo depending on patient's physical recovery; SNF vs home w/ VNA. A member of the Care Management team will continue to monitor progress, follow for continuity of care and assist with transition of care planning. Derian Pascual RN Pager: [phone] Plan of Care - Estefani Encarnacion RN [...] 2132: Pt discussed with Cardiac Fellow Dr. Donws by Dr. Winn sl nitroglycerin tablet now. [...] ??? Penicillins Pt doesn't remember reaction ??? Pfbglgl-Suj-Hyh Reductase Inhibitors Stiff neck, upset stomach, back [...] noncontrast head CT and CT of the n[place] of [place] at 1600 hrs. We will [...] vision concerning for stroke. Patient presented to [facility] in transfer for a STEMI after presenting [...] ??? Penicillins Pt doesn't remember reaction ??? Yfelfwn-Moe-Egj Reductase Inhibitors Stiff neck, upset stomach, back [...] file Gets together: Not on file Attends temple service: Not on file Active member of [...] L Elbow flexion 5/5 R, 5/5 L Rubber Down LE: 5/5 R, 5/5 L Hip flexion [...] PGY3 Neurology Resident 11/30/2019 Vascular Neurology Pager [phone] Standard [facility] [place] Swallow Screen: This screen is to be [...] diet as medical provider deems appropriate. Consider CAREER DEVELOPMENT SPECIALIST consult for full evaluation and diet [...] Afib admitted s/p thrombolysis and Cath-Stent to [facility] who developed R sided visual symptoms. CT [...] hours. Evan Mejia MD Department of Neurology [facility] Brief Op Note - Gretchen Yoon MD - 11/29/2019 8:38 PM EDT Brief Operative Note Patient Name: Angel Luis Salinas : [id number] MR#: [id number] Case Date: 11/29/2019 Surgeon: Surgeon(s) and Role: * Gretchen Yoon MD - Primary * Aidan Ward MD - Fellow Preoperative diagnosis: Inferior STEMI Postoperative diagnosis: Inferior STEMI Procedure(s) (LRB): CARDIAC CATHETERIZATION (N/A) Findings: Discrete 90% stenosis in the prox-to-mid RCA. Severe diffuse disease in the distal vessel. Discrete LCX stenosis in a non-culprit artery. S/P DESx3 in the kfzfgnis-tl-strpax RCA. Aspiration thrombectomy performed, and integrellin bolus [...] are i n the results section. CT MAN[facility] [place] W STAT 11/30/2019 4:36 Res [...] athologist Signature Potassium 3.9 3.5 - 5.0 [facility] mmol/L [facility] Comment: Please note: ??Patients with [...] Organization Address City/State/[place] [address] (ABNORMAL) Hemogram (12/08/2019 12:39 PM EDT) Analysis Performed At Patho logist Time Signature WBC 9.9 (H) 4.0 - 9.5 [facility] x10(3)/[facility] LABORATORY RBC 4.51 (L) 4.58 - [place] 5.54 [facility] x10(6)/[facility] LABORATORY Hemoglobin 13.0 (L) 13.7 - [place] 16.5 gm/dL [facility] Hematocrit 40.5 40.5 - [place] 48.5 % [facility] MCV 89.8 82.9 - [facility] [place] 93.1 [facility] LABORATORY MCH 28.8 27.5 - [place] 32.1 pg [facility] MCHC 32.1 32.0 - [place] 35.7 gm/dL [facility] Platelets 214 145 - 357 [facility] x10(3)/[facility] LABORATORY RDWSD 49.2 (H) 36.0 - [place] 45.0 [facility] LABORATORY RDWCV 15.1 (H) 11.4 - [facility] 13.8 % [facility] MPV 12.1 7.6 - 12.9 [facility] [place] [facility] LABORATORY nRBC % Auto 0.0 % [facility]ORY nRBC Abs Auto 0.000 0.000 - [facility] 0.000 [facility] x10(3)/[facility] LABORATORY Specimen Anatomical Collection Method Collection Time Receive d Time (Source) Location / / Volume Laterality Blood specimen 12/08/2019 12:39 0 (specimen) PM EDT 12:47 PM EDT Resulting Agency Comment Spec In Lab Gretchen Yoon MD HEMATOLOGY ORDERABLES Performing Organization Address City/State/ZIP Code Phon e Number [address] Hepatic Function Panel (12/08/2019 6:28 AM EDT) athologist Signature Total Protein 6.6 6.1 - 8.0 [place] gm/dL [facility] Albumin 3.2 3.2 - 5.2 [place] gm/dL [facility] AST 18 0 - 39 [place] unit/L [facility] ALT 13 0 - 55 [facility] [place] unit/L [facility] Alk Phos 64 40 - 130 [facility] [place] unit/L [facility] Total 0.4 0.2 - 1.3 [place] Bilirubin mg/dL [facility] Bili, Direct 0.1 0.0 - 0.3 [facility] [place] mg/dL [facility] Specimen Anatomical Collection Method Collection Time Receive d Time (Source) Location / / Volume Laterality Blood specimen Venous Draw / 12/08/2019 6:28 AM 2019 6:36 (specimen) Unknown EDT AM EDT Resulting Agency Comment Spec In Lab Riki Stevens MD CHEMISTRY ORDERABLES Performing Organization Address City/[facility]/ZIP Code Phon e Number [address] (ABNORMAL) TSH (12/08/2019 6:28 AM EDT) athologist Signature TSH 5.27 (H) 0.27 - 4.20 [place] mcIU/mL [facility] Specimen Anatomical Collection Method Collection Time Receive d Time (Source) Location / / Volume Laterality Blood specimen Venous Draw / 12/08/2019 6:28 AM 2019 6:36 (specimen) Unknown EDT AM EDT Resulting Agency Comment Spec In Lab Darrell Glasgow MD CHEMISTRY ORDERABLES Performing Organization Address City/[facility]/ZIP Code Phon e Number [address] Potassium (12/08/2019 6:28 AM EDT) P athologist Signature Potassium 4.2 3.5 - 5.0 [facility] mmol/L [facility] Comment: Please note: ??Patients with [...] Organization Address City/State/[place] [address] (ABNORMAL) Differential, Automated (12/08/2019 12:43 AM EDT) Patholo gist Method Time Signature Neutrophils % 60.7 % [facility] Neutr Abs (ANC) 6.81 (H) 1.70 - [facility] 6.10 [facility] x10(3)/[facility] LABORATORY Lymphocytes % 23.4 % [facility] Lymphocytes Abs 2.6 0.9 - 3.2 [facility] x10(3)/[facility] LABORATORY Monocytes % 10.0 % [facility] Monocyte Abs 1.1 (H) 0.3 - 0.9 [facility] x10(3)/[facility] LABORATORY Eosinophils % 3.7 % [facility] Eosinophils Abs 0.4 0.0 - 0.4 [facility] x10(3)/[facility] LABORATORY Basophils % 1.2 % [facility] Basophils Abs 0.1 0.0 - 0.1 [facility] x10(3)/[facility] LABORATORY Immature Gran % 1.00 % [facility] [...] Gran Abs 0.11 (H) 0.00 - 0.04 x10(3)/[facility] LABORATORY Specimen Anatomical Collection Method Collection Time Receive d Time (Source) Location / / Volume Laterality Blood specimen 12/08/2019 12:43 0 (specimen) AM EDT 12:52 AM EDT Resulting Agency Comment Spec In Lab Riki Stevens MD HEMATOLOGY ORDERABLES Performing Organization Address City/State/[place] [address] (ABNORMAL) Hemogram (12/08/2019 12:43 AM EDT) Analysis Performed At Patho logist Time Signature WBC 11.2 (H) 4.0 - 9.5 [facility] x10(3)/[facility] LABORATORY RBC 4.46 (L) 4.58 - [facility] OLIVIA 5.54 [facility] x10(6)/[facility] LABORATORY Hemoglobin 13.1 (L) 13.7 - [facility] 16.5 gm/dL [facility] Hematocrit 40.5 40.5 - [facility] OLIVIA 48.5 % [facility] MCV 90.8 82.9 - [facility] 93.1 [facility] LABORATORY MCH 29.4 27.5 - [facility] OLIVIA 32.1 pg [facility] MCHC 32.3 32.0 - [facility] OLIVIA 35.7 gm/dL [facility] Platelets 215 145 - 357 [facility] x10(3)/[facility] LABORATORY RDWSD 49.8 (H) 36.0 - [facility] OLIVIA 45.0 [facility] LABORATORY RDWCV 15.2 (H) 11.4 - [facility] OLIVIA 13.8 % [facility] MPV 12.3 7.6 - 12.9 [facility] LABORATORY nRBC % Auto 0.0 % [facility] nRBC Abs Auto 0.000 0.000 - [facility] [place] 0.000 [facility] x10(3)/[facility] LABORATORY Specimen Anatomical Collection Method Collection Time Receive d Time (Source) Location / / Volume Laterality Blood specimen 12/08/2019 12:43 0 (specimen) AM EDT 12:52 AM EDT Resulting Agency Comment Spec In Lab Riki Stevens MD HEMATOLOGY ORDERABLES Performing Organization Address City/State/ZIP Code Phon e Number [address] Magnesium (12/08/2019 12:43 AM EDT) athologist Signature Magnesium 1.01 0.69 - 1.07 [facility] mmol/L [facility] Specimen Anatomical Collection Method Collection Time Receive d Time (Source) Location / / Volume Laterality Blood specimen 12/08/2019 12:43 0 (specimen) AM EDT 12:52 AM EDT Resulting Agency Comment Spec In Lab Gretchen Yoon MD CHEMISTRY ORDERABLES Performing Organization Address City/State/[place] [address] (ABNORMAL) BMP w/fasting Glucose (12/08/2019 12:43 AM EDT) P athologist Signature Glucose 106 (H) 65 - 99 [facility] Fasting mg/dL [facility] Comment: ?Fasting* Glucose Interpretive C [...] of Diabetes Mellitus, Position Statement from the [place] [employer]. ??Diabete s Care, Volume 33, Supplement 1, Jul 2009 BUN 14 10 - 20 mg/dL [facility] Creatinine 1.16 0.80 - 1.50 mg/dL [facility] Sodium 134 (L) 135 - 145 mmol/L [facility] Potassium 4.0 3.5 - 5.0 mmol/L [facility] Comment: Please note: ??Patients with [...] Gap 16 (H) 5 - 15 mmol/L [facility] Calcium 8.9 8.5 - 10.5 mg/dL [facility] Estimated GFR 62 >=60 mL/min/1.73 m?? [facility] Comment: The eGFR was calculated using the CKD-EP I equation. As with all creatinine based estimates of kidney function, eGFR values calculated with the CKD-EPI equation are not accurate in patients wi th acute kidney failure, extremes of body mass or the acutely ill. http://Cause.it/[facility] eGFR 72 >=60 mL/min/1.73 m?? [facility] Comment: The eGFR was calculated using the CKD-EP I equation. As with all creatinine based estimates of kidney function, eGFR values calculated with the CKD-EPI equation are not accurate in patients wi th acute kidney failure, extremes of body mass or the acutely ill. http://Cause.it/[facility] Specimen Anatomical Collection Method Collection Time Receive d Time (Source) Location / / Volume Laterality Blood specimen 12/08/2019 12:43 0 (specimen) AM EDT 12:52 AM EDT Resulting Agency Comment Spec In Lab Gretchen Yoon MD CHEMISTRY ORDERABLES Performing Organization Address City/State/[place] [address] Heparin (unfractionated) Level (12/08/2019 12:43 AM EDT) athologist Signature Heparin UFH 0.60 IU/mL [facility] Comment: Guidelines for therapeutic [...] Organization Address City/State/[place] [address] Potassium (12/07/2019 8:39 PM EDT) athologist Signature Potassium 4.1 3.5 - 5.0 [facility] mmol/L [facility] LABORATORY Comment: Please note: ??Patients with [...] Lagos MD CHEMISTRY ORDERABLES Performing Organization Address City/[facility]/[place] [address] Potassium (12/07/2019 4:02 PM EDT) P athologist Signature Potassium 4.0 3.5 - 5.0 [place] OLIVIA mmol/L [facility] LABORATORY Comment: Please note: ??Patients with [...] Yoon MD CHEMISTRY ORDERABLES Performing Organization Address City/[facility]/[place] [address] (ABNORMAL) Hemogram (12/07/2019 4:02 PM EDT) Analysis Performed At Patho logist Time Signature WBC 17.4 (H) 4.0 - 9.5 [place] OLIVIA x10(3)/[facility] LABORATORY RBC 4.58 4.58 - [place] OLIVIA 5.54 [facility] x10(6)/[facility] LABORATORY Hemoglobin 13.5 (L) 13.7 - [place] OLIVIA 16.5 gm/dL [facility] LABORATORY Hematocrit 40.8 40.5 - [place] OLIVIA 48.5 % [facility] LABORATORY MCV 89.1 82.9 - [place] OLIVIA 93.1 [facility] LABORATORY MCH 29.5 27.5 - [place] OLIV[place] 32.1 pg [facility] LABORATORY MCHC 33.1 32.0 - [place] OLIV[place] 35.7 gm/dL [facility] LABORAT[facility] Platelets 238 145 - 357 [place] OLIVIA x10(3)/[facility] LABORATORY RDWSD 48.8 (H) 36.0 - [place] OLIVIA 45.0 [facility] LABORATORY RDWCV 15.0 (H) 11.4 - [facility] 13.8 % [facility] LABORATORY MPV 12.2 7.6 - 12.9 [facility] LABORATORY nRBC % Auto 0.0 % [facility] LABORATORY nRBC Abs Auto 0.000 0.000 - MELINA MARSHOLIVIA 0.000 [facility] x10(3)/[facility] LABORATORY Specimen Anatomical Collection Method Collection Time Receive d Time (Source) Location / / Volume Laterality Blood specimen 12/07/2019 4:02 PM 020 4:08 (specimen) EDT PM EDT Resulting Agency Comment Spec In Lab Gretchen Yoon MD HEMATOLOGY ORDERABLES Performing Organization Address City/[facility] [place] [address] EKG 12 Lead (12/07/2019 [...] (Bezet) Calculated P -12 degrees MUSE SYSTEM [place] Calculated R 10 degrees MUSE SYSTEM [place] Calculated T -138 degrees MUSE SYSTEM [place] INTERPRETATION Supraventricular tachycardia MUSE SYSTEM Low voltage [...] athologist Signature Potassium 4.2 3.5 - 5.0 [facility] mmol/L [facility] LABORATORY Comment: Please note: ??Patients with [...] Lagos MD CHEMISTRY ORDERABLES Performing Organization Address City/[facility] [place] [address] Heparin (unfractionated) Level (12/07/2019 11:43 AM EDT) athologist Signature Heparin UFH 0.59 IU/mL [facility] LABORATORY Comment: Guidelines for therapeutic unfractionate d [...] Lagos MD HEMATOLOGY ORDERABLES Performing Organization Address [facility]/[place] [address] Heparin (unfractionated) Level (12/07/2019 5:20 AM EDT) P athologist Signature Heparin UFH 0.53 IU/mL [facility] LABORATORY Comment: Guidelines for therapeutic unfractionate d [...] Organization Address City/State/[place] [address] (ABNORMAL) Differential, Automated (12/07/2019 5:20 AM EDT) Patholo gist Method Time Signature Neutrophils % 62.4 % [facility] LABORATORY Neutr Abs (ANC) 5.46 1.70 - [facility] 6.10 [facility] x10(3)/[facility] LABORATORY Lymphocytes % 20.3 % [facility] LABORATORY Lymphocytes Abs 1.8 0.9 - 3.2 [facility] x10(3)/[facility] LABORATORY Monocytes % 11.0 % [facility] LABORATORY Monocyte Abs 1.0 (H) 0.3 - 0.9 [facility] x10(3)/[facility] LABORATORY Eosinophils % 4.5 % [facility] LABORATORY Eosinophils Abs 0.4 0.0 - 0.4 [facility] x10(3)/[facility] LABORATORY Basophils % 0.9 % [facility] LABORATORY Basophils Abs 0.1 0.0 - 0.1 [facility] x10(3)/[facility] LABORATORY Immature Gran % 0.90 % [facility] [...] Gran Abs 0.08 (H) 0.00 - 0.04 x10(3)/[facility] LABORATORY Specimen Anatomical Collection Method Collection Time Receive d Time (Source) Location / / Volume Laterality Blood specimen 12/07/2019 5:20 AM 020 5:37 (specimen) EDT AM EDT Resulting Agency Comment Spec In Lab Riki Stevens MD HEMATOLOGY ORDERABLES Performing Organization Address City/State/ZIP Code Phon e Number [place] [id number] (ABNORMAL) Hemogram (12/07/2019 5:20 AM EDT) Analysis Performed At Patho logist Time Signature WBC 8.7 4.0 - 9.5 [facility] x10(3)/[facility] LABORATORY RBC 4.20 (L) 4.58 - [facility] 5.54 [facility] x10(6)/[facility] LABORATORY Hemoglobin 12.3 (L) 13.7 - [facility] 16.5 gm/dL [facility] LABORATORY Hematocrit 37.4 (L) 40.5 - [facility] 48.5 % [facility] MCV 89.0 82.9 - [facility] 93.1 fL [facility] LAB[facility] MCH 29.3 27.5 - [facility] 32.1 pg [facility] LAB[facility]AT[facility] MCHC 32.9 32.0 - MELINA MONAE 35.7 gm/dL [facility] LABORAT[facility] Platelets 181 145 - 357 MELINA MONAE x10(3)/[facility] LABORATORY RDWSD 47.7 (H) 36.0 - MELINA MONAE 45.0 [facility] LABORATORY RDWCV 14.8 (H) 11.4 - [facility] OLIVIA 13.8 % [facility] LABORATORY MPV 12.3 7.6 - 12.9 M[place] OLIVIA [facility] LABORATORY nRBC % Auto 0.0 % [facility] LABORATORY nRBC Abs Auto 0.000 0.000 - MELINA MONAE 0.000 [facility] x10(3)/[facility] LABORATORY Specimen Anatomical Collection Method Collection Time Receive d Time (Source) Location / / Volume Laterality Blood specimen 12/07/2019 5:20 AM 020 5:37 (specimen) EDT AM EDT Resulting Agency Comment Spec In Lab Riki Stevens MD HEMATOLOGY ORDERABLES Performing Organization Address City/State/ZIP Code Phon e Number [address] Magnesium (12/07/2019 5:20 AM EDT) P athologist Signature Magnesium 0.89 0.69 - 1.07 [facility] mmol/L [facility] LABORATORY Specimen Anatomical Collection Method Collection Time Receive d Time (Source) Location / / Volume Laterality Blood specimen 12/07/2019 5:20 AM 020 5:37 (specimen) EDT AM EDT Resulting Agency Comment Spec In Lab Gretchen Yoon MD CHEMISTRY ORDERABLES Performing Organization Address City/State/ZIP Code Phon e Number [address] (ABNORMAL) BMP w/fasting Glucose (12/07/2019 5:20 AM EDT) P athologist Signature Glucose 100 (H) 65 - 99 [facility] Fasting mg/dL [facility] LABORATORY Comment: ?Fasting* Glucose Interpretive C [...] of Diabetes Mellitus, Position Statement from the [place] [employer]. ??Diabete s Care, Volume 33, Supplement 1, Jul 2009 BUN 14 10 - 20 mg/dL [facility] LABORATORY Creatinine 0.83 0.80 - 1.50 mg/dL [facility] LABORATORY Sodium 135 135 - 145 mmol/L [facility] LABORATORY Potassium 3.8 3.5 - 5.0 mmol/L [facility] LABORATORY Comment: Please note: ??Patients with [...] Anion Gap 14 5 - 15 mmol/L [facility] LABORATORY Calcium 8.8 8.5 - 10.5 mg/dL [facility] LABORATORY Estimated GFR 87 >=60 mL/min/1.73 m?? [facility] LABORATORY Comment: The eGFR was calculated using the CKD-EP I equation. As with all creatinine based estimates of kidney function, eGFR values calculated with the CKD-EPI equation are not accurate in patients wi th acute kidney failure, extremes of body mass or the acutely ill. http://Cause.it/DHMCnkf eGFR 101 >=60 mL/min/1.73 m?? [facility] LABORATORY Comment: The eGFR was calculated using the CKD-EP I equation. As with all creatinine based estimates of kidney function, eGFR values calculated with the CKD-EPI equation are not accurate in patients wi th acute kidney failure, extremes of body mass or the acutely ill. [email or web address] Specimen Anatomical Collection Method Collection Time Receive d Time (Source) Location / / Volume Laterality Blood specimen 12/07/2019 5:20 AM 020 5:37 (specimen) EDT AM EDT Resulting Agency Comment Spec In Lab Gretchen Yoon MD CHEMISTRY ORDERABLES Performing Organization Address City/[facility] [place] [address] Heparin (unfractionated) Level (12/06/2019 10:14 PM EDT) athologist Signature Heparin UFH 0.29 IU/mL [facility] LABORATORY Comment: Guidelines for therapeutic unfractionate d [...] Lagos MD HEMATOLOGY ORDERABLES Performing Organization Address City/[facility]/[place] [address] Head wo Contrast [...] For questions regarding this report, please contact [facility] number below. ? Electronically signed by: Merari Collins [facility] ([phone]), at 12/06/2019 10:06 PM Narrative 12/06/2019 10:06 [...] number below. Electronically signed by: Merari Collins [facility] ([phone]), at 12/06/2019 10:06 PM Paris Lagos MD IMG CT ORDERABLES (ABNORMAL) Hemogram (12/06/2019 4:20 PM EDT) Analysis Performed At Patho logist Time Signature WBC 10.4 (H) 4.0 - 9.5 [facility] x10(3)/[facility] LABORATORY RBC 4.32 (L) 4.58 - [facility] OLIVIA 5.54 [facility] x10(6)/[facility] LABORATORY Hemoglobin 12.5 (L) 13.7 - [facility] 16.5 gm/dL [facility] Hematocrit 38.4 (L) 40.5 - [facility] 48.5 % [facility] LAB[facility]AT[facility] MCV 88.9 82.9 - [facility] 93.1 [facility] LABORATORY MCH 28.9 27.5 - [place] OLIVIA 32.1 pg [facility] LABORATORY MCHC 32.6 32.0 - [facility] 35.7 gm/dL [facility]AT[facility] Platelets 194 145 - 357 [facility] x10(3)/[facility] LABORATORY RDWSD 46.9 (H) 36.0 - [facility] 45.0 [facility] LABORATORY RDWCV 14.6 (H) 11.4 - [facility] OLIVIA 13.8 % [facility] LABORATORY MPV 11.9 7.6 - 12.9 [facility] OLIVIA [facility] LABORATORY nRBC % Auto 0.0 % [facility] LABORATORY nRBC Abs Auto 0.000 0.000 - [facility] OLIVIA 0.000 [facility] x10(3)/[facility] LABORATORY Specimen Anatomical Collection Method Collection Time Receive d Time (Source) Location / / Volume Laterality Blood specimen 12/06/2019 4:20 PM 020 4:31 (specimen) EDT PM EDT Resulting Agency Comment Spec In Lab Gretchen Yoon MD HEMATOLOGY ORDERABLES Performing Organization Address City/State/[place] [address] Heparin (unfractionated) Level (12/06/2019 4:20 PM EDT) P athologist Signature Heparin UFH 0.30 IU/mL [facility] LABORATORY Comment: Guidelines for therapeutic unfractionate d [...] Organization Address City/State/[place] [address] Heparin (unfractionated) Level (12/06/2019 10:02 AM EDT) athologist Signature Heparin UFH <0.04 IU/mL [facility] LABORATORY Comment: Guidelines for therapeutic unfractionate d [...] Organization Address City/State/ZIP Code Phon e Number [address] Magnesium (12/06/2019 3:36 AM EDT) P athologist Signature Magnesium 0.86 0.69 - 1.07 [facility] mmol/L [facility] LABORATORY Specimen Anatomical Collection Method Collection Time Receive d Time (Source) Location / / Volume Laterality Blood specimen 12/06/2019 3:36 AM 020 3:45 (specimen) EDT AM EDT Resulting Agency Comment Spec In Lab Gretchen Yoon MD CHEMISTRY ORDERABLES Performing Organization Address City/State/[place] [address] (ABNORMAL) BMP w/fasting Glucose (12/06/2019 3:36 AM EDT) P athologist Signature Glucose 103 (H) 65 - 99 [facility] Fasting mg/dL [facility] LABORATORY Comment: ?Fasting* Glucose Interpretive C [...] of Diabetes Mellitus, Position Statement from the [place] [employer]. ??Diabete s Care, Volume 33, Supplement 1, Jul 2009 BUN 20 10 - 20 mg/dL [facility] LABORATORY Creatinine 0.88 0.80 - 1.50 mg/dL [facility] LABORATORY Sodium 136 135 - 145 mmol/L [facility] LABORATORY Potassium 4.0 3.5 - 5.0 mmol/L [facility] LABORATORY Comment: Please note: ??Patients with [...] Anion Gap 14 5 - 15 mmol/L [facility] LABORATORY Calcium 8.7 8.5 - 10.5 mg/dL [facility] LABORATORY Estimated GFR 85 >=60 mL/min/1.73 m?? [facility] LABORATORY Comment: The eGFR was calculated using the CKD-EP I equation. As with all creatinine based estimates of kidney function, eGFR values calculated with the CKD-EPI equation are not accurate in patients wi th acute kidney failure, extremes of body mass or the acutely ill. http://Cause.it/[facility] MARIETTAnkf eGFR 99 >=60 mL/min/1.73 m?? [facility] LABORATORY Comment: The eGFR was calculated using the CKD-EP I equation. As with all creatinine based estimates of kidney function, eGFR values calculated with the CKD-EPI equation are not accurate in patients wi th acute kidney failure, extremes of body mass or the acutely ill. http://Cause.it/[facility] MARIETTAnkf Specimen Anatomical Collection Method Collection Time Receive d Time (Source) Location / / Volume Laterality Blood specimen 12/06/2019 3:36 AM 020 3:45 (specimen) EDT AM EDT Resulting Agency Comment Spec In Lab Gretchen Yoon MD CHEMISTRY ORDERABLES Performing Organization Address City/State/[place] [address] (ABNORMAL) Hemogram (12/06/2019 3:36 AM EDT) Analysis Performed At Patho logist Time Signature WBC 9.2 4.0 - 9.5 [facility](3[facility] LABORATORY RBC 3.99 (L) 4.58 - MELINA OLIVIA 5.54 [facility] x10(6)/[facility] LABORATORY Hemoglobin 11.9 (L) 13.7 - [place] OLIVIA 16.5 gm/dL [facility] LABORATORY Hematocrit 35.5 (L) 40.5 - [facility] 48.5 % [facility] LAB[facility]AT[facility] MCV 89.0 82.9 - [facility] 93.1 [facility] LABORATORY MCH 29.8 27.5 - [place] OLIVIA 32.1 pg [facility] LABORATORY MCHC 33.5 32.0 - [place] OLIVIA 35.7 gm/dL [facility] LABORATORY Platelets 164 145 - 357 [facility] x10(3)/[facility] LABORATORY RDWSD 47.6 (H) 36.0 - MELINA OLIVIA 45.0 [facility] LABORATORY RDWCV 14.7 (H) 11.4 - [facility] OLIVIA 13.8 % [facility] LABORATORY MPV 11.9 7.6 - 12.9 [facility] LABORATORY nRBC % Auto 0.0 % [facility] LABORATORY nRBC Abs Auto 0.000 0.000 - [place] OLIVIA 0.000 [facility] x10(3)/[facility] LABORATORY Specimen Anatomical Collection Method Collection Time Receive d Time (Source) Location / / Volume Laterality Blood specimen 12/06/2019 3:36 AM 020 3:45 (specimen) EDT AM EDT Resulting Agency Comment Spec In Lab Gretchen Yoon MD HEMATOLOGY ORDERABLES Performing Organization Address City/[facility]/[place] [address] (ABNORMAL) Differential, Automated (12/05/2019 10:52 PM EDT) [facility] Time Signature Neutrophils % 61.9 % [facility] LABORATORY Neutr Abs (ANC) 6.02 1.70 - [facility] 6.10 [facility] x10(3)/[facility] LABORATORY Lymphocytes % 22.4 % [facility] LABORATORY Lymphocytes Abs 2.2 0.9 - 3.2 [facility] x10(3)/[facility] LABORATORY Monocytes % 10.4 % [facility] LABORATORY Monocyte Abs 1.0 (H) 0.3 - 0.9 [facility] x10(3)/[facility] LABORATORY Eosinophils % 4.1 % [facility] LABORATORY Eosinophils Abs 0.4 0.0 - 0.4 [facility] x10(3)/[facility] LABORATORY Basophils % 0.7 % [facility] LABORATORY Basophils Abs 0.1 0.0 - 0.1 [facility] x10(3)/[facility] LABORATORY Immature Gran % 0.50 % [facility] [...] Gran Abs 0.05 (H) 0.00 - 0.04 x10(3)/[facility] LABORATORY Specimen Anatomical Collection Method Collection Time Receive d Time (Source) Location / / Volume Laterality Blood specimen 12/05/2019 10:52 0 (specimen) PM EDT 10:59 PM EDT Resulting Agency Comment Spec In Lab Mandi Barrera MD HEMATOLOGY ORDERABLES Performing Organization Address City/State/[place] [address] (ABNORMAL) Hemogram (12/05/2019 10:52 PM EDT) Analysis Performed At [facility] logist Time Signature WBC 9.7 (H) 4.0 - 9.5 [facility] x10(3)/[facility] LABORATORY RBC 4.07 (L) 4.58 - M[place] 5.54 [facility] x10(6)/[facility] LABORATORY Hemoglobin 11.9 (L) 13.7 - M[place] 16.5 gm/dL [facility] LABORATORY Hematocrit 36.4 (L) 40.5 - [place] 48.5 % [facility] LABORATORY MCV 89.4 82.9 - [facility] OLIVIA 93.1 [facility] LABORATORY MCH 29.2 27.5 - M[place]INA [place] 32.1 pg [facility] LABORATORY MCHC 32.7 32.0 - [place] 35.7 gm/dL [facility]AT[facility] Platelets 167 145 - 357 [facility] x10(3)/[facility] LABORATORY RDWSD 47.7 (H) 36.0 - MEL[place] 45.0 [facility] RDWCV 14.6 (H) 11.4 - [facility] 13.8 % [facility] LABORATORY MPV 12.1 7.6 - 12.9 [facility] LABORATORY nRBC % Auto 0.0 % [facility] LABORATORY nRBC Abs Auto 0.000 0.000 - [facility] OLIVIA 0.000 [facility] x10(3)/[facility] LABORATORY Specimen Anatomical Collection Method Collection Time Receive d Time (Source) Location / / Volume Laterality Blood specimen 12/05/2019 10:52 0 (specimen) PM EDT 10:59 PM EDT Resulting Agency Comment Spec In Lab Mandi Barrera MD HEMATOLOGY ORDERABLES Performing Organization Address City/State/[place] [address] Heparin (unfractionated) Level (12/05/2019 10:52 PM EDT) P athologist Signature Heparin UFH <0.04 IU/mL [facility] LABORATORY Comment: Guidelines for therapeutic unfractionate d [...] Organization Address City/State/[place] [address] MRI Brain wwo Contrast [...] number below. Electronically signed by: ALBA Jenkins [facility] ([phone]), at 12/05/2019 10:02 PM Paris Lagos MD IMG MRI ORDERABLES (ABNORMAL) Hemogram (12/05/2019 1:00 PM EDT) Analysis Performed At Patho logist Time Signature WBC 8.7 4.0 - 9.5 [facility] x10(3)/[facility] LABORATORY RBC 4.17 (L) 4.58 - [facility] 5.54 [facility] x10(6)/[facility] LABORATORY Hemoglobin 12.4 (L) 13.7 - [facility] 16.5 gm/dL [facility] Hematocrit 37.0 (L) 40.5 - [facility] 48.5 % [facility] LABORATORY MCV 88.7 82.9 - [facility] 93.1 [facility] LABORATORY MCH 29.7 27.5 - [facility] 32.1 pg [facility] LAB[facility] MCHC 33.5 32.0 - [facility] 35.7 gm/dL [facility] Platelets 173 145 - 357 [facility] x10(3)/[facility] LABORATORY RDWSD 47.3 (H) 36.0 - [facility] 45.0 [facility] LABORATORY RDWCV 14.6 (H) 11.4 - [facility] 13.8 % [facility] LABORATORY MPV 12.1 7.6 - 12.9 [facility] LABORATORY nRBC % Auto 0.0 % [facility] LABORATORY nRBC Abs Auto 0.000 0.000 - [facility] 0.000 [facility] x10(3)/[facility] LABORATORY Specimen Anatomical Collection Method Collection Time Receive d Time (Source) Location / / Volume Laterality Blood specimen 12/05/2019 1:00 PM 020 1:13 (specimen) EDT PM EDT Resulting Agency Comment Spec In Lab Gretchen Yoon MD HEMATOLOGY ORDERABLES Performing Organization Address City/State/[place] [address] EKG 12 Lead (12/05/2019 10:52 AM EDT) Component Value Ref Range Test Analysis Performed Pathologis t Method Time At Signature Ventricular rate 72 BPM MUSE SYSTEM Atrial Rate 72 BPM MUSE SYSTEM P-R Interval 138 ms MUSE SYSTEM QRS Duration 96 ms MUSE SYSTEM Q-T Interval 396 ms MUSE SYSTEM QTC Calculated 433 ms MUSE SYSTEM (Bezet) Calculated P [place] 65 degrees MUSE SYSTEM Calculated R [place] 13 degrees MUSE SYSTEM Calculated T [place] 0 degrees MUSE SYSTEM INTERPRETATION Sinus rhythm Occasional Premature ventricular complexe s MUSE SYSTEM Possible Inferior infarct (cited on or before 29-NOV-2019) Abnormal ECG When compared with ECG of 04-DEC-2019 10:43, Sinus rhythm has replaced Atrial fibrillation Vent. rate has decreased BY ??86 BPM Confirmed by MD Ceja Daniel ([id number]) on 12/05/2019 3:55:22 PM Specimen Anatomical Collection Method Collection Time Receive d Time (Source) Location / / Volume Laterality 12/05/2019 10:52 12/05/2019 3:55 AM EDT PM EDT Paris Lagos MD ECG ORDERABLES Performing Organization Address City/State/ZIP Code Phon e Number MUSE SYSTEM Duplex Study for DVT, Bilat legs (12/05/2019 7:00 AM EDT) Component Value Ref Test Analysis Performed At [facility] Range Method Time Signature VB Text Department: Vascular Surgery Lab VASCUBASE Report Patient: [id number] (ANGEL LUIS SALINAS) CPT: 24712 ICD10: I26.99 Referring Physician: GRETCHEN YOON ?? [...] athologist Signature Magnesium 0.87 0.69 - 1.07 [facility] mmol/L [facility] Specimen Anatomical Collection Method Collection Time Receive d Time (Source) Location / / Volume Laterality Blood specimen 12/05/2019 4:18 AM 020 4:31 (specimen) EDT AM EDT Resulting Agency Comment Spec In Lab Gretchen Yoon MD CHEMISTRY ORDERABLES Performing Organization Address City/[facility]/[place] [address] (ABNORMAL) BMP w/fasting Glucose (12/05/2019 4:18 AM EDT) P athologist Signature Glucose 104 (H) 65 - 99 [facility] Fasting mg/dL [facility] Comment: ?Fasting* Glucose Interpretive C [...] of Diabetes Mellitus, Position Statement from the [place] [employer]. ??Diabete s Care, Volume 33, Supplement 1, Jul 2009 BUN 21 (H) 10 - 20 mg/dL [facility] Creatinine 1.02 0.80 - 1.50 mg/dL [facility] Sodium 136 135 - 145 mmol/L [facility] Potassium 3.9 3.5 - 5.0 mmol/L [facility] Comment: Please note: ??Patients with [...] Anion Gap 12 5 - 15 mmol/L [facility] Calcium 8.8 8.5 - 10.5 mg/dL [facility] Estimated GFR 73 >=60 mL/min/1.73 m?? [facility] Comment: The eGFR was calculated using the CKD-EP I equation. As with all creatinine based estimates of kidney function, eGFR values calculated with the CKD-EPI equation are not accurate in patients wi th acute kidney failure, extremes of body mass or the acutely ill. http://[email or web address]/[facility]IETTAnkf eGFR 84 >=60 mL/min/1.73 m?? [facility] Comment: The eGFR was calculated using the CKD-EP I equation. As with all creatinine based estimates of kidney function, eGFR values calculated with the CKD-EPI equation are not accurate in patients wi th acute kidney failure, extremes of body mass or the acutely ill. http://[email or web address]/[facility]ETTAnkf Specimen Anatomical Collection Method Collection Time Receive d Time (Source) Location / / Volume Laterality Blood specimen 12/05/2019 4:18 AM 020 4:31 (specimen) EDT AM EDT Resulting Agency Comment Spec In Lab Gretchen Yoon MD CHEMISTRY ORDERABLES Performing Organization Address City/State/[place] [address] (ABNORMAL) Hemogram (12/05/2019 4:18 AM EDT) Analysis Performed At Patho logist Time Signature WBC 8.6 4.0 - 9.5 [facility] x10(3)/[facility] LABORATORY RBC 4.28 (L) 4.58 - [place] OL[place] 5.54 [facility] x10(6)/[facility] LABORATORY Hemoglobin 12.4 (L) 13.7 - [facility] 16.5 gm/dL [facility] Hematocrit 37.3 (L) 40.5 - [facility] 48.5 % [facility] MCV 87.1 82.9 - [facility] 93.1 [facility] LABORATORY MCH 29.0 27.5 - [facility] 32.1 pg [facility] MCHC 33.2 32.0 - [facility] 35.7 gm/dL [facility] Platelets 163 145 - 357 [facility] x10(3)/[facility] LABORATORY RDWSD 46.4 (H) 36.0 - [facility] 45.0 [facility] LABORATORY RDWCV 14.4 (H) 11.4 - [facility] 13.8 % [facility] MPV 11.7 7.6 - 12.9 [facility] LABORATORY nRBC % Auto 0.0 % [facility] nRBC Abs Auto 0.000 0.000 - [facility] 0.000 [facility] x10(3)/[facility] LABORATORY Specimen Anatomical Collection Method Collection Time Receive d Time (Source) Location / / Volume Laterality Blood specimen 12/05/2019 4:18 AM 020 4:31 (specimen) EDT AM EDT Resulting Agency Comment Spec In Lab Gretchen Yoon MD HEMATOLOGY ORDERABLES Performing Organization Address City/State/[place] [address] Cardiac for Morphology [...] For questions regarding this report, please contact [facility] number below. ? Electronically signed by: Roselyn Luciano [facility] ([phone]), at 12/04/2019 6:16 PM Narrative 12/04/2019 6:16 [...] from neck/greatest puja meter to back wall: RUSSIAN 91, CAU 13: ??19 mm CORTES ??1, [...] from neck/greatest puja meter to back wall: RUSSIAN 91, CAU 13: 19 mm CORTES 1, [...] number below. Electronically signed by: Roselyn Luciano, [facility] ([phone]), at 12/04/2019 6:16 PM Gretchen Yoon MD IMG CT ORDERABLES (ABNORMAL) Hemogram (12/04/2019 12:55 PM EDT) Analysis Performed At Patho logist Time Signature WBC 8.9 4.0 - 9.5 [facility] OLIVIA x10(3)/[facility] LABORATORY RBC 4.69 4.58 - [facility] OLIVIA 5.54 [facility] x10(6)/[facility] LABORATORY Hemoglobin 13.5 (L) 13.7 - [facility] 16.5 gm/dL [facility] Hematocrit 41.7 40.5 - [facility] OLIVIA 48.5 % [facility] MCV 88.9 82.9 - [facility] 93.1 fL [facility] MCH 28.8 27.5 - [place] [facility] 32.1 pg [facility] MCHC 32.4 32.0 - [facility] OLIVIA 35.7 gm/dL [facility] Platelets 196 145 - 357 [facility] x10(3)/[facility] LABORATORY RDWSD 46.7 (H) 36.0 - [place] [facility] 45.0 [facility] LABORATORY RDWCV 14.5 (H) 11.4 - [facility] 13.8 % [facility] MPV 12.1 7.6 - 12.9 [facility] MONAE [facility] LABORATORY nRBC % Auto 0.0 % [facility] nRBC Abs Auto 0.000 0.000 - [place] MON[facility] 0.000 [facility] x10(3)/[facility] LABORATORY Specimen Anatomical Collection Method Collection Time Receive d Time (Source) Location / / Volume Laterality Blood specimen 12/04/2019 12:55 0 1:06 (specimen) PM EDT PM EDT Resulting Agency Comment Spec In Lab Gretchen Yoon MD HEMATOLOGY ORDERABLES Performing Organization Address City/[facility]/[place] [address] EKG 12 Lead (12/04/2019 10:43 AM EDT) Component Value Ref Range Test Analysis Performed Pathologis t Method Time At Signature Ventricular rate 158 BPM MUSE SYSTEM Atrial Rate 102 BPM MUSE SYSTEM QRS Duration 92 ms MUSE SYSTEM Q-T Interval 294 ms MUSE SYSTEM QTC Calculated 476 ms MUSE SYSTEM (Bezet) Calculated R [place] 17 degrees MUSE SYSTEM Calculated T [place] 90 degrees MUSE SYSTEM INTERPRETATION Atrial fibrillation with rapid ventricular response MUSE SYSTEM Possible Inferior infarct (cited on or before 29-NOV-2019) Abnormal ECG When compared with ECG of 30-NOV-2019 21:07, Atrial fibrillation has replaced Sinus rhythm Vent. rate has increased BY ??65 BPM Confirmed by MD Ceja Daniel ([id number]) on 12/05/2019 8:59:44 AM Specimen Anatomical Collection Method Collection Time Receive d Time (Source) Location / / Volume Laterality 12/04/2019 10:43 12/05/2019 8:59 AM EDT AM EDT Gretchen Yoon MD ECG ORDERABLES Performing Organization Address City/State/ZIP Code Phon e Number MUSE SYSTEM (ABNORMAL) Magnesium (12/04/2019 4:28 AM EDT) P athologist Signature Magnesium 1.17 (H) 0.69 - 1.07 [facility] mmol/L [facility] Specimen Anatomical Collection Method Collection Time Receive d Time (Source) Location / / Volume Laterality Blood specimen 12/04/2019 4:28 AM 020 4:40 (specimen) EDT AM EDT Resulting Agency Comment Spec In Lab Gretchen Yoon MD CHEMISTRY ORDERABLES Performing Organization Address City/State/[place] [address] (ABNORMAL) BMP w/fasting Glucose (12/04/2019 4:28 AM EDT) athologist Signature Glucose 108 (H) 65 - 99 [facility] Fasting mg/dL [facility] Comment: ?Fasting* Glucose Interpretive C [...] of Diabetes Mellitus, Position Statement from the [place] [employer]. ??Diabete s Care, Volume 33, Supplement 1, Jul 2009 BUN 19 10 - 20 mg/dL [facility] Creatinine 0.89 0.80 - 1.50 mg/dL [facility] Sodium 135 135 - 145 mmol/L [facility] Potassium 4.2 3.5 - 5.0 mmol/L [facility] Comment: Please note: ??Patients with [...] Anion Gap 12 5 - 15 mmol/L [facility] Calcium 8.5 8.5 - 10.5 mg/dL [facility] Estimated GFR 85 >=60 mL/min/1.73 m?? [facility] Comment: The eGFR was calculated using the CKD-EP I equation. As with all creatinine based estimates of kidney function, eGFR values calculated with the CKD-EPI equation are not accurate in patients wi th acute kidney failure, extremes of body mass or the acutely ill. http://[email or web address]/[facility]ETTAnk eGFR 98 >=60 mL/min/1.73 m?? [facility] Comment: The eGFR was calculated using the CKD-EP I equation. As with all creatinine based estimates of kidney function, eGFR values calculated with the CKD-EPI equation are not accurate in patients wi th acute kidney failure, extremes of body mass or the acutely ill. http://[email or web address]/[facility]TAnkf Specimen Anatomical Collection Method Collection Time Receive d Time (Source) Location / / Volume Laterality Blood specimen 12/04/2019 4:28 AM 020 4:40 (specimen) EDT AM EDT Resulting Agency Comment Spec In Lab Gretchen Yoon MD CHEMISTRY ORDERABLES Performing Organization Address City/State/[place] [address] (ABNORMAL) Hemogram (12/04/2019 4:28 AM EDT) Analysis Performed At Patho logist Time Signature WBC 7.8 4.0 - 9.5 [facility] x10(3)/[facility] LABORATORY RBC 4.10 (L) 4.58 - [facility] 5.54 [facility] x10(6)/[facility] LABORATORY Hemoglobin 12.0 (L) 13.7 - [facility] 16.5 gm/dL [facility] Hematocrit 36.5 (L) 40.5 - [facility] 48.5 % [facility] MCV 89.0 82.9 - [facility] 93.1 fL [facility] MCH 29.3 27.5 - [facility] MON[facility] 32.1 pg [facility] MCHC 32.9 32.0 - [place] MON[facility] 35.7 gm/dL [facility] Platelets 151 145 - 357 [place] MARSH[facility]IV[facility] x10(3)/[facility] LABORATORY RDWSD 46.9 (H) 36.0 - [place] MONAE 45.0 [facility] LABORATORY RDWCV 14.4 (H) 11.4 - [place] MON[facility] 13.8 % [facility] MPV 12.2 7.6 - 12.9 [place] MON[facility] fL [facility] nRBC % Auto 0.0 % [facility] nRBC Abs Auto 0.000 0.000 - [place] MONAE 0.000 [facility] x10(3)/[facility] LABORATORY Specimen Anatomical Collection Method Collection Time Receive d Time (Source) Location / / Volume Laterality Blood specimen 12/04/2019 4:28 AM 020 4:40 (specimen) EDT AM EDT Resulting Agency Comment Spec In Lab Gretchen Yoon MD HEMATOLOGY ORDERABLES Performing Organization Address City/[facility]/ZIP Code Phon e Number [address] Potassium (12/03/2019 7:55 PM EDT) athologist Signature Potassium 3.9 3.5 - 5.0 [facility] mmol/L [facility] Comment: Please note: ??Patients with [...] Organization Address City/State/ZIP Code Phon e Number [address] Potassium (12/03/2019 1:57 PM EDT) athologist Signature Potassium 3.7 3.5 - 5.0 [facility] mmol/L [facility] Comment: Please note: ??Patients with [...] Organization Address City/State/[place] [address] (ABNORMAL) Hemogram (12/03/2019 1:57 PM EDT) Analysis Performed At Patho logist Time Signature WBC 8.8 4.0 - 9.5 [facility] x10(3)/[facility] LABORATORY RBC 4.27 (L) 4.58 - [place] 5.54 [facility] x10(6)/[facility] LABORATORY Hemoglobin 12.5 (L) 13.7 - [place] [facility] 16.5 gm/dL [facility] Hematocrit 37.5 (L) 40.5 - [place] [facility] 48.5 % [facility] MCV 87.8 82.9 - [place] 93.1 [facility] LABORATORY MCH 29.3 27.5 - [place] 32.1 pg [facility] MCHC 33.3 32.0 - [place] 35.7 gm/dL [facility] Platelets 158 145 - 357 [facility] x10(3)/[facility] LABORATORY RDWSD 46.9 (H) 36.0 - [place] OLIVIA 45.0 [facility] LABORATORY RDWCV 14.5 (H) 11.4 - [place] 13.8 % [facility] MPV 12.2 7.6 - 12.9 [place] OLIV[facility] LABORATORY nRBC % Auto 0.0 % [facility] nRBC Abs Auto 0.000 0.000 - [place] 0.000 [facility] x10(3)/[facility] LABORATORY Specimen Anatomical Collection Method Collection Time Receive d Time (Source) Location / / Volume Laterality Blood specimen 12/03/2019 1:57 PM 020 2:21 (specimen) EDT PM EDT Resulting Agency Comment Spec In Lab Gretchen Yoon MD HEMATOLOGY ORDERABLES Performing Organization Address City/State/ZIP Code Phon e Number [address] Magnesium (12/03/2019 4:02 AM EDT) athologist Signature Magnesium 0.79 0.69 - 1.07 [facility] mmol/L [facility] Specimen Anatomical Collection Method Collection Time Receive d Time (Source) Location / / Volume Laterality Blood specimen 12/03/2019 4:02 AM 020 4:16 (specimen) EDT AM EDT Resulting Agency Comment Spec In Lab Gretchen Yoon MD CHEMISTRY ORDERABLES Performing Organization Address City/State/[place] [address] (ABNORMAL) BMP w/fasting Glucose (12/03/2019 4:02 AM EDT) P athologist Signature Glucose 100 (H) 65 - 99 [facility] Fasting mg/dL [facility] Comment: ?Fasting* Glucose Interpretive C [...] of Diabetes Mellitus, Position Statement from the [place] [employer]. ??Diabete s Care, Volume 33, Supplement 1, Jul 2009 BUN 17 10 - 20 mg/dL [facility] Creatinine 0.95 0.80 - 1.50 mg/dL [facility] Sodium 136 135 - 145 mmol/L [facility] Potassium 3.4 (L) 3.5 - 5.0 mmol/L [facility] Comment: Please note: ??Patients with [...] Anion Gap 15 5 - 15 mmol/L [facility] Calcium 8.3 (L) 8.5 - 10.5 mg/dL [facility] Estimated GFR 79 >=60 mL/min/1.73 m?? [facility] Comment: The eGFR was calculated using the CKD-EP I equation. As with all creatinine based estimates of kidney function, eGFR values calculated with the CKD-EPI equation are not accurate in patients wi th acute kidney failure, extremes of body mass or the acutely ill. http://[email or web address]/[facility] MARIETTAnkf eGFR 92 >=60 mL/min/1.73 m?? [facility] Comment: The eGFR was calculated using the CKD-EP I equation. As with all creatinine based estimates of kidney function, eGFR values calculated with the CKD-EPI equation are not accurate in patients wi th acute kidney failure, extremes of body mass or the acutely ill. [email or web address] Specimen Anatomical Collection Method Collection Time Receive d Time (Source) Location / / Volume Laterality Blood specimen 12/03/2019 4:02 AM 020 4:16 (specimen) EDT AM EDT Resulting Agency Comment Spec In Lab Gretchen Yoon MD CHEMISTRY ORDERABLES Performing Organization Address City/State/[place] [address] (ABNORMAL) Hemogram (12/03/2019 4:02 AM EDT) Analysis Performed At Patho logist Time Signature WBC 9.1 4.0 - 9.5 [facility] x10(3)/[facility] LABORATORY RBC 4.01 (L) 4.58 - [facility] 5.54 [facility] x10(6)/[facility] LABORATORY Hemoglobin 11.8 (L) 13.7 - [facility] 16.5 gm/dL [facility] Hematocrit 35.6 (L) 40.5 - [facility] 48.5 % [facility] MCV 88.8 82.9 - [facility] 93.1 [facility] LABORATORY MCH 29.4 27.5 - [facility] 32.1 pg [facility] MCHC 33.1 32.0 - [facility] 35.7 gm/dL [facility] Platelets 130 (L) 145 - 357 [facility] x10(3)/[facility] LABORATORY RDWSD 46.6 (H) 36.0 - [facility] 45.0 [facility] LABORATORY RDWCV 14.4 (H) 11.4 - [facility] 13.8 % [facility] MPV 12.4 7.6 - 12.9 [facility] LABORATORY nRBC % Auto 0.0 % [facility] nRBC Abs Auto 0.000 0.000 - [facility] 0.000 [facility] x10(3)/[facility] LABORATORY Specimen Anatomical Collection Method Collection Time Receive d Time (Source) Location / / Volume Laterality Blood specimen 12/03/2019 4:02 AM 020 4:16 (specimen) EDT AM EDT Resulting Agency Comment Spec In Lab Gretchen Yoon MD HEMATOLOGY ORDERABLES Performing Organization Address City/State/[place] [address] XR Chest One View [...] Signature WBC 10.6 (H) 4.0 - 9.5 [facility] x10(3)/[facility] LABORATORY RBC 4.00 (L) 4.58 - [facility] 5.54 [facility] x10(6)/[facility] LABORATORY Hemoglobin 11.9 (L) 13.7 - [facility] 16.5 gm/dL [facility] Hematocrit 35.7 (L) 40.5 - [facility] 48.5 % [facility] MCV 89.3 82.9 - [facility] 93.1 [facility] LABORATORY MCH 29.8 27.5 - [facility] 32.1 pg [facility] MCHC 33.3 32.0 - [facility] 35.7 gm/dL [facility] Platelets 120 (L) 145 - 357 [facility] x10(3)/[facility] LABORATORY RDWSD 47.5 (H) 36.0 - [facility] 45.0 [facility] LABORATORY RDWCV 14.6 (H) 11.4 - [facility] 13.8 % [facility] MPV 12.0 7.6 - 12.9 [facility] LABORATORY nRBC % Auto 0.0 % [facility] nRBC Abs Auto 0.000 0.000 - [facility] 0.000 [facility] x10(3)/[facility] LABORATORY Specimen Anatomical Collection Method Collection Time Receive d Time (Source) Location / / Volume Laterality Blood specimen 12/02/2019 12:50 0 1:22 (specimen) PM EDT PM EDT Resulting Agency Comment Spec In Lab Gretchen Yoon MD HEMATOLOGY ORDERABLES Performing Organization Address City/State/[place] [address] Blue Tube HOLD (12/02/2019 4:55 AM EDT) P athologist Signature Blue Hold Sample in [facility] lab. [facility] Specimen Anatomical Collection Method Collection Time Receive d Time (Source) Location / / Volume Laterality Blood specimen Venous Draw / 12/02/2019 4:55 AM 2019 5:03 (specimen) Unknown EDT AM EDT Darrell Glasgwo MD HEMATOLOGY ORDERABLES Performing Organization Address City/State/ZIP Code Phon e Number [address] Magnesium (12/02/2019 4:55 AM EDT) athologist Signature Magnesium 0.85 0.69 - 1.07 [facility] mmol/L [facility] Specimen Anatomical Collection Method Collection Time Receive d Time (Source) Location / / Volume Laterality Blood specimen 12/02/2019 4:55 AM 020 5:02 (specimen) EDT AM EDT Resulting Agency Comment Spec In Lab Gretchen Yoon MD CHEMISTRY ORDERABLES Performing Organization Address City/[facility]/[place] [address] (ABNORMAL) BMP w/fasting Glucose (12/02/2019 4:55 AM EDT) athologist Signature Glucose 114 (H) 65 - 99 [facility] Fasting mg/dL [facility] Comment: ?Fasting* Glucose Interpretive C [...] of Diabetes Mellitus, Position Statement from the [place] [employer]. ??Diabete s Care, Volume 33, Supplement 1, Jul 2009 BUN 13 10 - 20 mg/dL [facility] Creatinine 0.93 0.80 - 1.50 mg/dL [facility] Sodium 135 135 - 145 mmol/L [facility] Potassium 3.7 3.5 - 5.0 mmol/L [facility] Comment: Please note: ??Patients with [...] Anion Gap 12 5 - 15 mmol/L [facility] Calcium 8.1 (L) 8.5 - 10.5 mg/dL [facility] Estimated GFR 81 >=60 mL/min/1.73 m?? [facility] Comment: The eGFR was calculated using the CKD-EP I equation. As with all creatinine based estimates of kidney function, eGFR values calculated with the CKD-EPI equation are not accurate in patients wi th acute kidney failure, extremes of body mass or the acutely ill. http://[email or web address]/[facility] MARIETTAnkf eGFR 94 >=60 mL/min/1.73 m?? [facility] Comment: The eGFR was calculated using the CKD-EP I equation. As with all creatinine based estimates of kidney function, eGFR values calculated with the CKD-EPI equation are not accurate in patients wi th acute kidney failure, extremes of body mass or the acutely ill. [email or web address]://[email or web address]/[facility]IETTAnkf Specimen Anatomical Collection Method Collection Time Receive d Time (Source) Location / / Volume Laterality Blood specimen 12/02/2019 4:55 AM 020 5:02 (specimen) EDT AM EDT Resulting Agency Comment Spec In Lab Gretchen Yoon MD CHEMISTRY ORDERABLES Performing Organization Address City/State/[place] [address] (ABNORMAL) Hemogram (12/02/2019 4:55 AM EDT) Analysis Performed At Patho logist Time Signature WBC 9.3 4.0 - 9.5 [facility] x10(3)/[facility] LABORATORY RBC 3.71 (L) 4.58 - [place] [facility] 5.54 [facility] x10(6)/[facility] LABORATORY Hemoglobin 10.8 (L) 13.7 - [facility] 16.5 gm/dL [facility] Hematocrit 33.1 (L) 40.5 - [facility] 48.5 % [facility] MCV 89.2 82.9 - [facility] 93.1 [facility] LABORATORY MCH 29.1 27.5 - [facility] 32.1 pg [facility] MCHC 32.6 32.0 - [facility] 35.7 gm/dL [facility] Platelets 93 (L) 145 - 357 [facility] x10(3)/[facility] [place] [facility]ORY RDWSD 47.1 (H) 36.0 - [facility] 45.0 [facility] LABORATORY RDWCV 14.6 (H) 11.4 - [facility] 13.8 % [facility] MPV 11.7 7.6 - 12.9 [facility] LABORATORY nRBC % Auto 0.0 % [facility] LABORATORY nRBC Abs Auto 0.000 0.000 - [facility] 0.000 [facility] x10(3)/[facility] LABORATORY Specimen Anatomical Collection Method Collection Time Receive d Time (Source) Location / / Volume Laterality Blood specimen 12/02/2019 4:55 AM 020 5:02 (specimen) EDT AM EDT Resulting Agency Comment Spec In Lab Gretchen Yoon MD HEMATOLOGY ORDERABLES Performing Organization Address City/State/[place] [address] Transfuse 1 unit platelets, [...] For questions regarding this report, please contact [facility] number below. ? Electronically signed by: Angel Luis Barboza MD, [facility] ([phone]), at 12/01/2019 8:02 PM Narrative 12/01/2019 8:02 [...] For questions regarding this report, please contact [facility] number below. Electronically signed by: Angel Luis Barboza MD, [facility] ([phone]), at 12/01/2019 8:02 PM Gretchen Yoon MD [...] Organization Address City/State/ZIP Code Phon e Number [place] [id number] HOSPITAL LABORATORY Drive Duplex for DVT, Arm, Unilat (12/01/2019 5:08 PM EDT) Component Value Ref Test Analysis Performed At Patholo gist Range Method Time Signature VB Text Department: Vascular Surgery Lab VASCUBASE Report Patient: [id number] (ANGEL LUIS SALINAS) CPT: 28638 ICD10: R60.0 Referring Physician: GRETCHEN YOON ?? [...] Volume Laterality 12/01/2019 5:08 PM EDT Gretchen oYon MD VASCULAR ORDERABLES Performing Organization Address City/State/ZIP [...] For questions regarding this report, please contact [facility] number below. ? Electronically signed by: Merari Collins [facility] ([phone]), at 12/01/2019 3:53 PM Narrative 12/01/2019 3:53 PM EDT EXAMINATION: CT HEAD WO CONTRAST (GENERIC) CLINICAL HISTORY: Headache, intracranial hemorrhage suspected Serial CT scan: please assess for propag ation of known ICH noted on prior Head CT/imaging. TECHNIQUE: CT head performed without intravenous co ntrast administration. COMPARISON: Head CT 11/30/2019. CT angiogram of the [place] 11/01. FINDINGS: Ventricles are normal in size. Basal cis terns are patent. Unchanged hyperdense 2.3 x 0.7 x 0.6 cm tubular hemorrhage projecting along the course of the left optic tract (axial se [facility] 2 image 16), consistent with intraparenchymal [...] Head CT 11/30/2019. CT angiogram of the [place] 11/01. FINDINGS: Ventricles are normal [...] Scan, Peripheral Blood (12/01/2019 12:51 PM EDT) [facility] Method Time Signature Plat Estimate Decreased [facility] RBC Morphology Normal [facility] Giant Less than 1 /HPF [facility] Platelets [facility] LAB[facility] Specimen Anatomical Collection Method Collection Time Receive d Time (Source) Location / / Volume Laterality Blood specimen 12/01/2019 12:51 0 1:05 (specimen) PM EDT PM EDT Resulting Agency Comment Spec In Lab Riki Stevens MD HEMATOLOGY ORDERABLES Performing Organization Address City/State/[place] [address] (ABNORMAL) Differential, Automated (12/01/2019 12:51 PM EDT) [facility] Method Time Signature Neutrophils % 74.9 % [facility] LABOR[facility]ORY Neutr Abs (ANC) 6.34 (H) 1.70 - [facility] 6.10 [facility] x10(3)/[facility] LABORATORY Lymphocytes % 11.4 % [facility] LABOR[facility]ORY Lymphocytes Abs 1.0 0.9 - 3.2 [facility] x10(3)/[facility] LABORATORY Monocytes % 12.4 % [facility] Monocyte Abs 1.0 (H) 0.3 - 0.9 [facility] x10(3)/[facility] LABORATORY Eosinophils % 0.4 % [facility] Eosinophils Abs 0.0 0.0 - 0.4 [facility] x10(3)/[facility] LABORATORY Basophils % 0.4 % [facility] Basophils Abs 0.0 0.0 - 0.1 [facility] x10(3)/[facility] LABORATORY Immature Gran % 0.50 % [...] Gran Abs 0.04 0.00 - 0.04 x10(3)/[facility] LABORATORY Specimen Anatomical Collection Method Collection Time Receive d Time (Source) Location / / Volume Laterality Blood specimen 12/01/2019 12:51 0 1:05 (specimen) PM EDT PM EDT Resulting Agency Comment Spec In Lab Riki Stevens MD HEMATOLOGY ORDERABLES Performing Organization Address City/State/[place] [address] (ABNORMAL) Hemogram (12/01/2019 12:51 PM EDT) Analysis Performed At Patho logist Time Signature WBC 8.4 4.0 - 9.5 [facility] x10(3)/[facility] LABORATORY RBC 3.69 (L) 4.58 - [facility] 5.54 [facility] x10(6)/[facility] LABORATORY Hemoglobin 10.8 (L) 13.7 - [facility] gm/dL [facility] Hematocrit 32.4 (L) 40.5 - [facility] 48.5 % [facility] MCV 87.8 82.9 - [facility] 93.1 [facility] LABORATORY MCH 29.3 27.5 - [facility] OLIVIA 32.1 pg [facility] MCHC 33.3 32.0 - [facility] 35.7 gm/dL [facility] Platelets 72 (L) 145 - 357 [facility] x10(3)/[facility] [place] LABORATORY RDWSD 47.2 (H) 36.0 - [facility]0 [facility] LABORATORY RDWCV 14.6 (H) 11.4 - [facility] 13.8 % [facility] LABORAT[facility] MPV 12.2 7.6 - 12.9 [facility] LABORATORY nRBC % Auto 0.0 % [facility] LABORATORY nRBC Abs Auto 0.000 0.000 - [facility] 0.000 [facility] x10(3)/[facility] LABORATORY Specimen Anatomical Collection Method Collection Time Receive d Time (Source) Location / / Volume Laterality Blood specimen 12/01/2019 12:51 0 1:05 (specimen) PM EDT PM EDT Resulting Agency Comment Spec In Lab Riki Stevens MD HEMATOLOGY ORDERABLES Performing Organization Address City/[facility]/ZIP Code Phon e Number [address] (ABNORMAL) Coox2 (12/01/2019 11:42 AM EDT) Analysis Performed At Patho logist Time Signature pO2 Coox 30 mmHg [facility] Hgb Blood Gas 11.6 (L) 13.7 - [facility] 16.5 gm/dL [facility] O2HB Coox 60.8 % [facility] COHB Coox 0.6 % [facility] Comment: Nonsmokers: 0.5-1.5% COHB Smokers: Variable, but usually less than 10% Toxic: 20-30% COHB Lethal: Greater than 60% COHB METHB Coox 0.6 <=1.5 % [facility] LABORATORY Source Coox Mixed Venous [facility]OR[facility] Specimen Anatomical Collection Method Collection Time Receive d Time (Source) Location / / Volume Laterality Blood specimen 12/01/2019 11:42 0 (specimen) AM EDT 11:42 AM EDT Gretchen Yoon MD CHEMISTRY ORDERABLES Performing Organization Address City/State/[place] [address] Sedimentation rate (12/01/2019 3:55 AM EDT) P athologist Signature Sed Rate 25 3 - 46 [facility] mm/hr [facility] Comment: Effective June 11, 2019 [...] Winn MD HEMATOLOGY ORDERABLES Performing Organization Address City/[facility]/[place] [address] (ABNORMAL) CRP, acute inflammation [...] Winn MD CHEMISTRY ORDERABLES Performing Organization Address City/[facility]/[place] [address] ABORH Recheck Status (12/01/2019 3:55 AM EDT) [facility] Method Time Signature ABORH Recheck Order Placed [facility] LABORATORY ABORH Type Complete [facility] LABORATORY Specimen Anatomical Collection Method Collection Time Receive d Time (Source) Location / / Volume Laterality Blood specimen 12/01/2019 3:55 AM 020 4:15 (specimen) EDT AM EDT Resulting Agency Comment Spec In Lab Lewis Gee MD BLOOD BANK ORDERABLES Performing Organization Address City/[facility]/[place] [address] Antibody screen (12/01/2019 3:55 AM EDT) [facility] Method Time Signature Ab Screen Negative [facility] LABORATORY Expires at 12/04/2019 [facility] [id number] on: [facility] LABOR[facility]ORY Specimen Anatomical Collection Method Collection Time Receive d Time (Source) Location / / Volume Laterality Blood specimen 12/01/2019 3:55 AM 020 4:15 (specimen) EDT AM EDT Resulting Agency Comment Spec In Lab Lewis Gee MD BLOOD BANK ORDERABLES Performing Organization Address City/State/[place] [address] ABO/Rh Typing (12/01/2019 3:55 AM EDT) athologist Signature ABORh Type AB Pos [facility]OR[facility]ORY Specimen Anatomical Collection Method Collection Time Receive d Time (Source) Location / / Volume Laterality Blood specimen 12/01/2019 3:55 AM 020 4:15 (specimen) EDT AM EDT Resulting Agency Comment Spec In Lab Lewis Gee MD BLOOD BANK ORDERABLES Performing Organization Address City/[facility]/[place] [address] (ABNORMAL) Troponin (12/01/2019 3:55 AM EDT) athologist Signature Troponin-T 4.35 (H) 0.00 - [facility] 0.00 ng/mL [facility] Comment: result rechecked-slw The 99th percentile for Troponin T is le ss than 0.01 ng/mL, any detectable cTnT concentration using this assay should be considered elevated. According to the third universal definit ion of myocardial infarction the following criteria with a clinical prese ntation consistent with acute myocardial ischemia meets the diagnosis for a myocardial infarction (SD). Detection of a rise and/or fall of [...] additional sample may be indicated. Reference: Third [place] Definition of Myocardial Infarction. Journal of the [place] [employer] 2012;60:1581-98 Specimen Anatomical Collection Method Collection Time Receive d Time (Source) Location / / Volume Laterality Blood specimen 12/01/2019 3:55 AM 020 4:00 (specimen) EDT AM EDT Resulting Agency Comment Spec In Lab rGetchen Yoon MD CHEMISTRY ORDERABLES Performing Organization Address City/[facility]/ZIP Code Phon e Number [address] Magnesium (12/01/2019 3:55 AM EDT) P athologist Signature Magnesium 0.96 0.69 - 1.07 [facility] mmol/L [facility] LABOR[facility] Specimen Anatomical Collection Method Collection Time Receive d Time (Source) Location / / Volume Laterality Blood specimen 12/01/2019 3:55 AM 020 4:00 (specimen) EDT AM EDT Resulting Agency Comment Spec In Lab Gretchen Yoon MD CHEMISTRY ORDERABLES Performing Organization Address City/State/[place] [address] (ABNORMAL) BMP w/fasting Glucose (12/01/2019 3:55 AM EDT) P athologist Signature Glucose 148 (H) 65 - 99 [facility] Fasting mg/dL [facility] Comment: ?Fasting* Glucose Interpretive C [...] of Diabetes Mellitus, Position Statement from the [place] [employer]. ??Diabete s Care, Volume 33, Supplement 1, Jul 2009 BUN 11 10 - 20 mg/dL [facility] LABORATORY Creatinine 0.96 0.80 - 1.50 mg/dL [facility] LABORATORY Sodium 132 (L) 135 - 145 mmol/L [facility] LABORATORY Potassium 4.0 3.5 - 5.0 mmol/L [facility] LABOR[facility] Comment: Please note: ??Patients with [...] Anion Gap 10 5 - 15 mmol/L [facility] LABORATORY Calcium 7.6 (L) 8.5 - 10.5 mg/dL [facility] LABORATORY Estimated GFR 78 >=60 mL/min/1.73 m?? [facility] Comment: The eGFR was calculated using the CKD-EP I equation. As with all creatinine based estimates of kidney function, eGFR values calculated with the CKD-EPI equation are not accurate in patients wi th acute kidney failure, extremes of body mass or the acutely ill. [email or web address]/[facility] MARIETTAnkf eGFR 91 >=60 mL/min/1.73 m?? [facility] LAB[facility]ORY Comment: The eGFR was calculated using the CKD-EP I equation. As with all creatinine based estimates of kidney function, eGFR values calculated with the CKD-EPI equation are not accurate in patients wi th acute kidney failure, extremes of body mass or the acutely ill. http://Cause.it/DHnkf Specimen Anatomical Collection Method Collection Time Receive d Time (Source) Location / / Volume Laterality Blood specimen 12/01/2019 3:55 AM 020 4:00 (specimen) EDT AM EDT Resulting Agency Comment Spec In Lab Gretchen Yoon MD CHEMISTRY ORDERABLES Performing Organization Address City/State/ZIP Code Phon [place] [address] (ABNORMAL) Hemogram (12/01/2019 3:55 AM EDT) Analysis [facility] Time Signature WBC 11.0 (H) 4.0 - 9.5 [facility] x10(3)/[facility] LABORATORY RBC 3.46 (L) 4.58 - [facility] 5.54 [facility] x10(6)/[facility] LABORATORY Hemoglobin 10.2 (L) 13.7 - [facility] 16.5 gm/dL [facility] LAB[facility] Hematocrit 31.2 (L) 40.5 - [facility] 48.5 % [facility]ATORY MCV 90.2 82.9 - [facility] 93.1 [facility] LABORATORY MCH 29.5 27.5 - [facility] 32.1 pg [facility] MCHC 32.7 32.0 - [facility] 35.7 gm/dL [facility] Platelets 98 (L) 145 - 357 [facility] x10(3)/[facility] LABORATORY RDWSD 47.9 (H) 36.0 - [facility] 45.0 [facility] LABORATORY RDWCV 14.6 (H) 11.4 - [facility] 13.8 % [facility] LABORATORY MPV 12.3 7.6 - 12.9 [facility] LABORATORY nRBC % Auto 0.0 % [facility] LABORATORY nRBC Abs Auto 0.000 0.000 - [facility] 0.000 [facility] x10(3)/[facility] LABORATORY Specimen Anatomical Collection Method Collection Time Receive d Time (Source) Location / / Volume Laterality Blood specimen 12/01/2019 3:55 AM 020 4:00 (specimen) EDT AM EDT Resulting Agency Comment Spec In Lab Gretchen Yoon MD HEMATOLOGY ORDERABLES Performing Organization Address City/State/[place] [address] (ABNORMAL) BLOOD GAS 2 ARTERIAL (11/30/2019 10:39 PM EDT) Analysis Performed At [facility] Time Signature pH Art 7.45 7.35 - [facility] 7.45 [facility] LABORATORY pCO2 Art 23 (L) 35 - 45 [facility] LABORATORY pO2 Art 76 (L) 85 - 104 [facility] LABORATORY HCO3 Art 15.3 (L) 20.0 - [facility] 26.0 [facility] mmol/L [facility] LABORATORY BE Art -8.7 (L) -3.0 - 3.0 [facility] mmol/L [facility] Hgb Blood Gas 11.7 (L) 13.7 - [facility] 16.5 gm/dL [facility] O2HB Art 94.2 94.0 - [facility] 97.0 % [facility] COHB Art 0.5 % [facility]ORY Comment: Nonsmokers: 0.5-1.5% COHB Smokers: Variable, but usually less than 10% Toxic: 20-30% COHB Lethal: Greater than 60% COHB METHB Art 0.6 <=1.5 % [facility] LABORATORY Na Whole Blood 133 (L) 135 - 145 mmol/L [facility] LABORATORY K Whole Blood 3.8 [...] Lactate WB 0.8 0.5 - 2.2 mmol/L [facility] FIO2 Art 100 % [facility] PF Ratio Art 76 [facility] LABORATORY Specimen Anatomical Collection Method Collection Time Receive d Time (Source) Location / / Volume Laterality Blood specimen 11/30/2019 10:39 0 (specimen) PM EDT 10:39 PM EDT Gretchen Yoon MD CHEMISTRY ORDERABLES Performing Organization Address City/[facility]/[place] [address] EKG 12 Lead (11/30/2019 [...] (Bezet) Calculated P 12 degrees [facility] [place] Calculated R 19 degrees [facility] [place] Calculated T -47 degrees [facility] [place] INTERPRETATION Sinus rhythm with Premature supraventricular complexes [...] Yoon MD ECG ORDERABLES Performing Organization Address City/[facility]/ZIP Code Phon e Number MUSE SYSTEM (ABNORMAL) Urinalysis Microscopic Exam (11/30/2019 8:40 PM EDT) P athologist Signature RBC UA 27 (H) 0 - 3 /HPF [facility] LABORATORY WBC UA 4 (H) 0 - 3 /HPF [facility] Hyaline Cast 3 (H) 0 - 2 /LPF [facility] LABORATORY Specimen (Source) Anatomical Collection Method Collection Time Re ceived Time Location / / Volume Laterality Urine specimen 11/30/2019 8:40 11/30/2019 obtained via PM EDT 10:51 PM EDT indwelling urinary catheter (specimen) Resulting Agency Comment Spec In Lab Rossy Winn MD URINE ORDERABLES Performing Organization Address City/[facility]/[place] [address] (ABNORMAL) Urinalysis with reflex Culture (11/30/2019 8:40 PM EDT) Patholo gist Method Time Signature Glucose UA Negative Negative [facility] mg/dL [facility] Protein UA Negative Negative [facility] mg/dL [facility] Bilirubin UA Negative Negative [facility] mg/dL [facility] Comment: Clinical correlation required for positi ve Urine Bilirubin results as false positive may occur with some drugs and d rug related products. If a false positive is suspected a serum total bili morales should be considered if clinically indicated. Urobilinogen UA Normal Normal mg/dL [facility] LABORATORY pH UA 5.5 5.0 - 8.0 [facility] Blood UA Moderate (A) Negative mg/dL [facility] Ketones UA 40 (A) Negative mg/dL [facility] Nitrite UA Negative Negative [facility] LABORATORY Leukocytes UA Trace (A) Negative [facility] LABORATORY Appearance UA Clear Clear [facility]OR[facility] Spec Free Soil UA 1.026 1.006 - 1.030 [facility] LABORATORY Color UA Yellow Yellow [facility]OR[facility]ORY Culture Reflexed No [facility] LABORATORY Specimen (Source) Anatomical Collection Method Collection Time Re ceived Time Location / / Volume Laterality Urine specimen 11/30/2019 8:40 11/30/2019 obtained via PM EDT 10:51 PM EDT indwelling urinary catheter (specimen) Resulting Agency Comment Spec In Lab Gretchen Yoon MD URINE ORDERABLES Performing Organization Address City/State/[place] [address] (ABNORMAL) pro-Brain Natriuretic Peptide (11/30/2019 8:30 PM EDT) P athologist Signature ProBNP 2,802 (H) <=125 [facility] pg[facility]mL [facility] Specimen Anatomical Collection Method Collection Time Receive d Time (Source) Location / / Volume Laterality Blood specimen Venous Draw / 11/30/2019 8:30 PM 2019 8:36 (specimen) Unknown EDT PM EDT Resulting Agency Comment Spec In Lab Rossy Winn MD CHEMISTRY ORDERABLES Performing Organization Address City/[facility]/ZIP [place] [address] (ABNORMAL) Troponin (11/30/2019 8:30 PM EDT) athologist Signature Troponin-T 5.04 (H) 0.00 - [place] 0.00 ng/mL [facility] Comment: The 99th percentile for Troponin T is le ss than 0.01 ng/mL, any detectable cTnT concentration using this assay should be considered elevated. According to the third universal definit ion of myocardial infarction the following criteria with a clinical prese ntation consistent with acute myocardial ischemia meets the diagnosis for a myocardial infarction (SD). Detection of a rise and/or fall of [...] additional sample may be indicated. Reference: Third [place] Definition of Myocardial Infarction. Journal of the [place] [employer] 2012;60:1581-98 Specimen Anatomical Collection Method Collection Time Receive d Time (Source) Location / / Volume Laterality Blood specimen Venous Draw / 11/30/2019 8:30 PM 2019 8:36 (specimen) Unknown EDT PM EDT Resulting Agency Comment Spec In Lab Rossy Winn MD CHEMISTRY ORDERABLES Performing Organization Address City/[facility]/ZIP [place] [address] Magnesium (11/30/2019 8:30 PM EDT) athologist Signature Magnesium 0.79 0.69 - 1.07 [place] mmol/L [facility] Specimen Anatomical Collection Method Collection Time Receive d Time (Source) Location / / Volume Laterality Blood specimen 11/30/2019 8:30 PM 020 8:35 (specimen) EDT PM EDT Resulting Agency Comment Spec In Lab Gretchen Yoon MD CHEMISTRY ORDERABLES Performing Organization Address City/State/[place] [address] (ABNORMAL) Basic Metabolic Panel (non-fasting) (11/30/2019 8:30 PM EDT) athologist Signature Glucose Lvl 132 65 - 199 [facility] mg/dL [facility] Comment: Diabetes: >=200 mg/dL plus symp toms BUN 12 10 - 20 mg/dL [facility] Creatinine 0.94 0.80 - 1.50 mg/dL [facility] LABOR[facility]ORY Sodium 136 135 - 145 mmol/L [facility]OR[facility] Potassium 3.9 3.5 - 5.0 mmol/L [facility] Comment: Please note: ??Patients with [...] Anion Gap 11 5 - 15 mmol/L [facility] Calcium 7.9 (L) 8.5 - 10.5 mg/dL [facility] LABORATORY Estimated GFR 80 >=60 mL/min/1.73 m?? [facility] Comment: The eGFR was calculated using the CKD-EP I equation. As with all creatinine based estimates of kidney function, eGFR values calculated with the CKD-EPI equation are not accurate in patients wi th acute kidney failure, extremes of body mass or the acutely ill. http://Cause.it/DHnkf eGFR 93 >=60 mL/min/1.73 m?? [facility] Comment: The eGFR was calculated using the CKD-EP I equation. As with all creatinine based estimates of kidney function, eGFR values calculated with the CKD-EPI equation are not accurate in patients wi th acute kidney failure, extremes of body mass or the acutely ill. http://Cause.it/DHMCnkf Specimen Anatomical Collection Method Collection Time Receive d Time (Source) Location / / Volume Laterality Blood specimen 11/30/2019 8:30 PM 020 8:35 (specimen) EDT PM EDT Resulting Agency Comment Spec In Lab Gretchen Yoon MD CHEMISTRY ORDERABLES Performing Organization Address City/[facility] [place] [address] Blood culture (11/30/2019 8:30 PM EDT) Patholo gist Method Time Signature Blood Culture No growth MELINA WHITTENCOCK at 5 days. [facility] Specimen Anatomical Collection Method Collection Time Receive d Time (Source) Location / / Volume Laterality Blood specimen 11/30/2019 8:30 PM 020 9:40 (specimen) EDT PM EDT Comment: L HAND Resulting Agency Comment Spec In Lab Gretchen Yoon MD MICROBIOLOGY - BLOOD ORDERAB LES Performing Organization Address City/[facility]/[place] [address] Blood culture (11/30/2019 8:30 PM EDT) Patholo gist Method Time Signature Blood Culture No growth MELINA WHITTENCOCK at 5 days. [facility] Specimen Anatomical Collection Method Collection Time Receive d Time (Source) Location / / Volume Laterality Blood specimen 11/30/2019 8:30 PM 020 9:40 (specimen) EDT PM EDT Comment: R HAND Resulting Agency Comment Spec In Lab Gretchen Yoon MD MICROBIOLOGY - BLOOD ORDERAB LES Performing Organization Address [facility] [place] [address] XR Chest One View [...] below. ? Electronically signed by: ALBA Watson [facility] ([phone]), at 11/30/2019 8:32 PM Narrative 11/30/2019 8:32 [...] Time Signature pH Art 7.45 7.35 - [facility] 7.45 [facility] pCO2 Art 27 (L) 35 - 45 [facility] mmHg [facility] pO2 Art 68 (L) 85 - 104 [facility] LABORATORY HCO3 Art 18.2 (L) 20.0 - [facility] 26.0 [facility] mmol/[facility] LABORATORY BE Art -5.9 (L) -3.0 - 3.0 [facility] mmol/L [facility] Hgb Blood Gas 12.4 (L) 13.7 - [facility] 16.5 gm/dL [facility] O2HB Art 93.1 (L) 94.0 - [facility] 97.0 % [facility] COHB Art 0.8 % [facility] Comment: Nonsmokers: 0.5-1.5% COHB Smokers: Variable, but usually less than 10% Toxic: 20-30% COHB Lethal: Greater than 60% COHB METHB Art 0.4 <=1.5 % [facility] LAB[facility] Na Whole Blood 133 (L) 135 - 145 mmol/L [facility] LABORAT[facility] K Whole Blood 3.6 [...] Lactate WB 1.2 0.5 - 2.2 mmol/L [facility] Flow Art 5.0 LPM [facility] Specimen Anatomical Collection Method Collection Time Receive d Time (Source) Location / / Volume Laterality Blood specimen 11/30/2019 8:09 PM 020 8:09 (specimen) EDT PM EDT Gretchen Yoon MD CHEMISTRY ORDERABLES Performing Organization Address City/State/[place] [address] Angiogram [place] (11/30/2019 4:36 PM EDT) Anatomical [...] CT HEAD WO CONTRAST (GENERIC), CT ANGIOGRAM [place] [facility] [place] CLINICAL HISTORY: Headache, intracranial hemorrhage suspected F/U on known ICH - assessing for propaga tion TECHNIQUE: CT head performed without intravenous co ntrast administration. CT angiogram [place] of [place] 65 cc Omnipaque 350 administered [...] HEAD WO CONTRAST (GENERI C), CT ANGIOGRAM [place] CLINICAL HISTORY: Headache, intracranial hemorrhage suspected F/U on known ICH - assessing for propaga tion TECHNIQUE: CT head performed without intravenous co ntrast administration. CT angiogram [place] 65 cc Omnipaque 350 administered [...] CT HEAD WO CONTRAST (GENERIC), CT ANGIOGRAM [place] CLINICAL HISTORY: Headache, intracranial hemorrhage suspected F/U on known ICH - assessing for propaga tion TECHNIQUE: CT head performed without intravenous co ntrast administration. CT angiogram [place] 65 cc Omnipaque 350 administered [...] HEAD WO CONTRAST (GENERI C), CT ANGIOGRAM [place] CLINICAL HISTORY: Headache, intracranial hemorrhage suspected F/U on known ICH - assessing for propaga tion TECHNIQUE: CT head performed without intravenous co ntrast administration. CT angiogram [place] 65 cc Omnipaque 350 administered [...] Electronically signed by: Angel Luis Barboza MD, [facility] ([phone]), at 11/30/2019 5:04 PM Gretchen Yoon MD [...] 453 ms MUSE SYSTEM (Bezet) Calculated P [place] 52 degrees MUSE SYSTEM Calculated R [place] 5 degrees MUSE SYSTEM Calculated T [place] -60 degrees MUSE SYSTEM INTERPRETATION Sinus rhythm [...] Nilo ? (Age): 1945(74y) Med Rec#: ? [id number] ?Sex: ?M ? Site Loc: ? [facility] ?Ht / Wt: ??178(cm)/64(kg) Pt. Loc: ?CCU ? BSA: ?1.8 Study Date: ?? 11/30/2019 ?Pt. Type: Inpatient Tape: ? Referring: GILMER Reading: Tello Mejia ([id number]) Equipment Operat0R: Friend, Lolita Diagnosis: *ST elevation (STEMI) myocardial [...] Vmax ?0.58 ? m/sec ? MV deceleration uvjq239.05 ? m sec ? MV A-wave Vmax [...] ? Mid-Inferior ?Akinetic ? Mid-Inferoseptal ?Normal ? [place]-Septal ? Normal ? [place]-Anterior ? Normal ? [place]-Lateral ?Normal ? [place]-Inferior ? Hypokinetic ? [place]-Tip ?Normal ? This report has been electronically sign ed by: _ Tello Mejia MD ? 11/30/2019 12: 45:27 Images reviewed and interpretation [facility] Cardiac Ultrasound Laboratory Procedure Note Tello Mejia MD - 11/30/2019Formatti ng of this note might be different from the original. Procedure: Transthoracic Echocardiogram Patient: RITA ACOSTA(Age): [birth year](74y) Med Rec#: [id number] Sex: M Site Loc: [facility] Ht / Wt: 178(cm)/64(kg) Pt. Loc: [facility] BSA: 1.8 Study Date: 11/30/2019 Pt. Type: Inpatie nt Tape: Referring: VANGIEJ Reading: Tello Mejia ([id number]) Equipment Operat0R: Eve Lolita Diagnosis: *ST elevation (STEMI) myocardial [...] MV E-wave Vmax 0.58 m/sec MV deceleration [id number] msec MV A-wave Vmax 0.74 m/sec MV [...] Hypokinetic Mid-Posterolateral Hypokinetic Mid-Inferior Akinetic Mid-Inferoseptal Normal [place]-Septal Normal [place]-Anterior Normal [place]-Lateral Normal [place]-Inferior Hypokinetic [place]-Tip Normal This report has been electronically sign ed by: _ Tello Mejia MD 11/30/2019 12:45:27 Images reviewed and interpretation verif d [facility] Cardiac Ultrasound Laboratory Gretchen Yoon MD [...] Electronically signed by: Angel Luis Barboza MD, [facility] ([phone]), at 11/30/2019 12:04 PM Narrative 11/30/2019 12:04 [...] - 1.07 [facility] mmol/L [facility] Specimen Anatomical Collection Method Collection Time Receive d Time (Source) Location / / Volume Laterality Blood specimen Venous Draw / 11/30/2019 8:30 AM 2019 8:37 (specimen) Unknown EDT AM EDT Resulting Agency Comment Spec In Lab Rossy Winn MD CHEMISTRY ORDERABLES Performing Organization Address City/State/[place] [address] (ABNORMAL) CK (11/30/2019 8:30 AM EDT) athologist [facility] CK, Total 1,645 (H) 0 - 200 [facility] Specimen Anatomical Collection Method Collection Time Receive d Time (Source) Location / / Volume Laterality Blood specimen 11/30/2019 8:30 AM 020 8:32 (specimen) EDT AM EDT Resulting Agency Comment Spec In Lab Gretchen Yoon MD CHEMISTRY ORDERABLES Performing Organization Address City/[facility]/ZIP [facility] [place] [address] (ABNORMAL) Troponin (11/30/2019 8:30 AM EDT) athologist [facility] Troponin-T 8.04 (H) 0.00 - MELINA OLIVIA 0.00 ng/mL [facility] Comment: result rechecked-rancho The 99th percentile for Troponin T is le ss than 0.01 ng/mL, any detectable cTnT concentration using this assay should be considered elevated. According to the third universal definit ion of myocardial infarction the following criteria with a clinical prese ntation consistent with acute myocardial ischemia meets the diagnosis for a myocardial infarction (SD). Detection of a rise and/or fall of [...] additional sample may be indicated. Reference: Third [place] Definition of Myocardial Infarction. Journal of the [place] College [employer] 2012;60:1581-98 Specimen Anatomical Collection Method Collection Time Receive d Time (Source) Location / / Volume Laterality Blood specimen 11/30/2019 8:30 AM 020 8:32 (specimen) EDT AM EDT Resulting Agency Comment Spec In Lab Gretchen Yoon MD CHEMISTRY ORDERABLES Performing Organization Address City/State/[place] [address] EKG 12 Lead (11/30/2019 7:57 AM EDT) Component Value Ref Range Test Analysis Performed Pathologis t Method Time At Signature Ventricular rate 64 BPM MUSE SYSTEM Atrial Rate 64 BPM MUSE SYSTEM P-R Interval 132 ms MUSE SYSTEM QRS Duration 78 ms MUSE SYSTEM Q-T Interval 420 ms MUSE SYSTEM QTC Calculated 433 ms MUSE SYSTEM (Bezet) Calculated P [place] 28 degrees MUSE SYSTEM Calculated R [place] 7 degrees MUSE SYSTEM Calculated T [place] -33 degrees MUSE SYSTEM INTERPRETATION Sinus rhythm [...] Signature Glucose 147 (H) 65 - 99 [facility] Fasting mg/dL [facility] Comment: ?Fasting* Glucose Interpretive C [...] of Diabetes Mellitus, Position Statement from the [place] [employer]. ??Diabete s Care, Volume 33, Supplement 1, Jul 2009 BUN 13 10 - 20 mg/dL [facility] Creatinine 0.90 0.80 - 1.50 mg/dL [facility] Sodium 135 135 - 145 mmol/L [facility] Potassium 3.9 3.5 - 5.0 mmol/L [facility] Comment: Please note: ??Patients with [...] Anion Gap 11 5 - 15 mmol/L [facility] Calcium 7.5 (L) 8.5 - 10.5 mg/dL [facility] Estimated GFR 84 >=60 mL/min/1.73 m?? [facility] Comment: The eGFR was calculated using the CKD-EP I equation. As with all creatinine based estimates of kidney function, eGFR values calculated with the CKD-EPI equation are not accurate in patients wi th acute kidney failure, extremes of body mass or the acutely ill. http://Cause.it/[facility] eGFR 98 >=60 mL/min/1.73 m?? [facility] Comment: The eGFR was calculated using the CKD-EP I equation. As with all creatinine based estimates of kidney function, eGFR values calculated with the CKD-EPI equation are not accurate in patients wi th acute kidney failure, extremes of body mass or the acutely ill. http://Cause.it/[facility]kf Specimen Anatomical Collection Method Collection Time Receive d Time (Source) Location / / Volume Laterality Blood specimen 11/30/2019 2:15 AM 020 2:29 (specimen) EDT AM EDT Resulting Agency Comment Spec In Lab Gretchen Yoon MD CHEMISTRY ORDERABLES Performing Organization Address City/State/ZIP Code Phon e Number [place] [id number] (ABNORMAL) Hemogram (11/30/2019 2:15 AM EDT) Analysis Performed At Patho logist Time Signature WBC 11.2 (H) 4.0 - 9.5 [facility] x10(3)/[facility] LABORATORY RBC 3.83 (L) 4.58 - [facility] 5.54 [facility] x10(6)/[facility] LABORATORY Hemoglobin 11.4 (L) 13.7 - [facility] 16.5 gm/dL [facility] Hematocrit 35.2 (L) 40.5 - [facility] 48.5 % [facility] MCV 91.9 82.9 - [facility] 93.1 fL [facility] MCH 29.8 27.5 - [facility] 32.1 [facility] LABORATORY MCHC 32.4 32.0 - MELINA WHITTENCOCK 35.7 gm/dL [facility] Platelets 122 (L) 145 - 357 MELINA MARSHOLIVIA x10(3)/[facility] LABORATORY RDWSD 49.8 (H) 36.0 - MELINA WHITTENCOCK 45.0 [facility] LABORATORY RDWCV 14.8 (H) 11.4 - MELINA OLIVIA 13.8 % [facility] MPV 12.1 7.6 - 12.9 MELINA MONAE [facility] LABORATORY nRBC % Auto 0.0 % [facility]ORAT[facility] nRBC Abs Auto 0.000 0.000 - MELINA MARSHOLIVIA 0.000 [facility] x10(3)/[facility] LABORATORY Specimen Anatomical Collection Method Collection Time Receive d Time (Source) Location / / Volume Laterality Blood specimen 11/30/2019 2:15 AM 020 2:29 (specimen) EDT AM EDT Resulting Agency Comment Spec In Lab Gretchen Yoon MD HEMATOLOGY ORDERABLES Performing Organization Address City/[facility]/ZIP Code Phon e Number [address] (ABNORMAL) CK (11/30/2019 2:15 AM EDT) [facility] CK, Total 1,969 (H) 0 - 200 [facility]L [facility] Specimen Anatomical Collection Method Collection Time Receive d Time (Source) Location / / Volume Laterality Blood specimen 11/30/2019 2:15 AM 020 2:29 (specimen) EDT AM EDT Resulting Agency Comment Spec In Lab Gretchen Yoon MD CHEMISTRY ORDERABLES Performing Organization Address City/State/[place] [address] (ABNORMAL) Troponin (11/30/2019 2:15 AM EDT) [facility] Troponin-T 11.73 (H) 0.00 - MELINA WHITTENCOCK 0.00 ng/mL [facility] Comment: result rechecked-slw The 99th percentile for Troponin T is le ss than 0.01 ng/mL, any detectable cTnT concentration using this assay should be considered elevated. According to the third universal definit ion of myocardial infarction the following criteria with a clinical prese ntation consistent with acute myocardial ischemia meets the diagnosis for a myocardial infarction (SD). Detection of a rise and/or fall of [...] additional sample may be indicated. Reference: Third [place] Definition of Myocardial Infarction. Journal of the [place] College of [employer]iology 2012;60:1581-98 result rechecked- The 99th percentile for Troponin T is le ss than 0.01 ng/mL, any detectable cTnT concentration using this assay should be considered elevated. According to the third universal definit ion of myocardial infarction the following criteria with a clinical prese ntation consistent with acute myocardial ischemia meets the diagnosis for a myocardial infarction (SD). Detection of a rise and/or fall of [...] additional sample may be indicated. Reference: Third [place] Definition of Myocardial Infarction. Journal of the [place] College of [employer]iology 2012;60:1581-98 Corrected from 11.73 ng/ml [HI] on 11/29 3:11:51 EDT by Debi Hawley Specimen Anatomical Collection Method Collection Time Receive d Time (Source) Location / / Volume Laterality Blood specimen 11/30/2019 2:15 AM 020 2:29 (specimen) EDT AM EDT Resulting Agency Comment Spec In Lab Gretchen Yoon MD CHEMISTRY ORDERABLES Performing Organization Address City/[facility]/ZIP Code Phon e Number [address] LDL Cholesterol, Direct (11/30/2019 2:15 AM EDT) P athologist Signature LDL Chol 156 mg/dL [facility] LABORATORY Comment: Lowest Risk: <100 mg/dL Lower Risk: 100-129 mg/dL Borderline High Risk: 130-159 mg/dL High Risk: 160-189 mg/dL Very High Risk: >am=594 mg/dL Specimen Anatomical Collection Method Collection Time Receive d Time (Source) Location / / Volume Laterality Blood specimen 11/30/2019 2:15 AM 020 2:29 (specimen) EDT AM EDT Resulting Agency Comment Spec In Lab Gretchen Yoon MD CHEMISTRY ORDERABLES Performing Organization Address City/[facility]/ZIP Code Phon e Number [address] (ABNORMAL) Hemoglobin A1c (11/30/2019 2:15 AM EDT) Analysis Performed At Patho logist Time Signature Hemoglobin A1C 6.3 (H) 4.3 - 5.6 [facility] LABORATORY Comment: Reference Range: 4.3 - [...] Mellitus, Diabetes Care 2013; 36: Suppl. 1, A06-57 Est Avg Gluc See note mg/dL [facility] [...] with hemoglobinopathies. Additional resources are available on [facility] ADA website. Kiko CARBAJAL, Jenn J, Silas R, et al. ??Tr anslating the A1C assay into estimated average glucose values. ??Diabetes Care 2008:31(8):2160-4764. Specimen Anatomical Collection Method Collection Time Receive d Time (Source) Location / / Volume Laterality Blood specimen 11/30/2019 2:15 AM 020 2:29 (specimen) EDT AM EDT Resulting Agency Comment Spec In Lab Gretchen Yoon MD CHEMISTRY ORDERABLES Performing Organization Address City/State/[place] [address] Lipid Panel (Reflex Direct LDL) (11/30/2019 2:15 AM EDT) athologist Signature Chol, Total 195 mg/dL [facility] Comment: Lower Risk: <200 mg/dL Average Risk: 200-239 mg/dL Higher Risk: >zq=129 mg/dL Triglycerides 93 mg/dL [facility] Comment: Average Risk/Lower Risk: <150 mg/dL Borderline High Risk: 150-199 mg/dL High Risk: 200-499 mg/dL Very High Risk: >jj=020 mg/dL HDL 32 mg/dL [facility] LABOR[facility] Comment: Males: ?? Higher Risk: <40 mg/dL Females: ?? HIgher Risk: <50 mg/dL LDL Cholesterol 144 mg/dL [facility] Comment: Lowest Risk: <100 mg/dL Lower Risk: 100-129 mg/dL Borderline High Risk: 130-159 mg/dL High Risk: 160-189 mg/dL Very High Risk: >ig=152 mg/dL Chol/HDL Ratio 6.1 ratio [facility] Lipid Interpretation See Note [facility] LABORATORY Comment: Lipid management should be guided by a p atient? s ASCVD risk, goals and preferences. ACC/AHA Guidelines recommend high intens ity statin if clinical ASCVD or LDL greater than or equal to 190 mg/dL. http://[employer].TNC/EGB-NAH-Jwudmyeci Adults aged 40-75 with LDL 70-189 mg/dL should have their 10 year ASCVD risk estimated with the ACC/AHA ASCVD risk es timator http://tools.acc.org/VUUMO-Rfmo-Fjjmmwxg r/ Statin should be discussed if risk [...] Organization Address City/State/[place] [address] (ABNORMAL) CK (11/29/2019 6:35 PM EDT) athologist Signature CK, Total 2,780 (H) 0 - 200 [facility] unit/L [facility] Specimen Anatomical Collection Method Collection Time Receive d Time (Source) Location / / Volume Laterality Blood specimen 11/29/2019 6:35 PM 020 6:53 (specimen) EDT PM EDT Resulting Agency Comment Spec In Lab Gretchen Yoon MD CHEMISTRY ORDERABLES Performing Organization Address City/State/[place] [address] (ABNORMAL) Troponin (11/29/2019 6:35 PM EDT) athologist Signature Troponin-T 17.60 (H) 0.00 - [facility] 0.00 ng/mL [facility] Comment: result rechecked-az The 99th percentile for Troponin T is le ss than 0.01 ng/mL, any detectable cTnT concentration using this assay should be considered elevated. According to the third universal definit ion of myocardial infarction the following criteria with a clinical prese ntation consistent with acute myocardial ischemia meets the diagnosis for a myocardial infarction (SD). Detection of a rise and/or fall of [...] additional sample may be indicated. Reference: Third [place] Definition of Myocardial Infarction. Journal of the [place] College of [employer]iology 2012;60:1581-98 Specimen Anatomical Collection Method Collection Time Receive d Time (Source) Location / / Volume Laterality Blood specimen 11/29/2019 6:35 PM 020 6:53 (specimen) EDT PM EDT Resulting Agency Comment Spec In Lab Gretchen Yoon MD CHEMISTRY ORDERABLES Performing Organization Address City/State/[place] [address] EKG 12 Lead (11/29/2019 3:58 PM EDT) [facility] gist Method Time Signature Ventricular rate 73 BPM MUSE SYSTEM Atrial Rate 73 BPM MUSE SYSTEM P-R Interval 152 ms MUSE SYSTEM QRS Duration 84 ms MUSE SYSTEM Q-T Interval 404 ms MUSE SYSTEM QTC Calculated 445 ms MUSE SYSTEM (Bezet) Calculated P [place] 50 degrees MUSE SYSTEM Calculated R [place] -4 degrees MUSE SYSTEM Calculated T [place] 19 degrees MUSE SYSTEM INTERPRETATION Sinus rhythm [...] below. ? Electronically signed by: Devin Solis [facility] ([phone]), at 11/29/2019 5:06 PM --------ORIGINAL REPORT -------- EXAMINATION: XR CHEST ONE VIEW CLINICAL HISTORY: stemi (as entered by o [facility] ([place] [place] provider in the order requisition) TECHNIQUE: Portable [...] lung apex is excluded from the imaged [id number]-[id number]. IMPRESSION: 1. ??New right internal jugular pulmonar [...] below. ? Electronically signed by: Devin Solis [facility] ([phone]), at 11/29/2019 4:36 PM Impressions 11/29/2019 4:36 [...] below. ? Electronically signed by: Devin Solis [facility] ([phone]), at 11/29/2019 4:36 PM Narrative 11/29/2019 4:36 [...] lung apex is excluded from the imaged [id number]. Procedure Note Estefani Harris MD - 11/29/2019Formattin [...] lung apex is excluded from the imaged [id number]. IMPRESSION 1. New right internal jugular pulmonary arterial catheter with its tip projecting over the expected location of the distal interlobar artery. 2. Equivocal tiny right apical pneumotho rax. 3. Atelectasis, aspiration, or developin g consolidation in the bilateral retrocardiac area. At the time of this report, radiology patricio kcoh is attempting to reach the inpatient team to discuss the findings. Thank you for letting us participate in the care of this patient. For questions regarding this report, please contact e number below. Electronically signed by: Devin Solis [facility] ([phone]), at 11/29/2019 4:36 PM Juventino Concepcion MD IMG DX ORDERABLES (ABNORMAL) Differential, Automated (11/29/2019 2:32 PM EDT) [facility] Method Time Signature Neutrophils % 83.8 % [facility] LABORATORY Neutr Abs (ANC) 12.12 (H) 1.70 - [facility] 6.10 [facility] x10(3)/[facility] LABORATORY Lymphocytes % 9.1 % [facility]ORATORY Lymphocytes Abs 1.3 0.9 - 3.2 [facility] x10(3)/[facility] LABORATORY Monocytes % 6.2 % [facility] Monocyte Abs 0.9 0.3 - 0.9 [facility] x10(3)/[facility] LABORATORY Eosinophils % 0.0 % [facility] Eosinophils Abs 0.0 0.0 - 0.4 [facility] x10(3)/[facility] LABORATORY Basophils % 0.3 % [facility]ORAT[facility] Basophils Abs 0.0 0.0 - 0.1 [facility] x10(3)/[facility] LABORATORY Immature Gran % 0.60 % [facility] [...] Gran Abs 0.08 (H) 0.00 - 0.04 x10(3)/[facility] LABORATORY Specimen Anatomical Collection Method Collection Time Receive d Time (Source) Location / / Volume Laterality Blood specimen 11/29/2019 2:32 PM 020 2:55 (specimen) EDT PM EDT Resulting Agency Comment Spec In Lab Darrell Glasgow MD HEMATOLOGY ORDERABLES Performing Organization Address City/State/[place] [address] (ABNORMAL) Hemogram (11/29/2019 2:32 PM EDT) Analysis Performed At Patho logist Time Signature WBC 14.5 (H) 4.0 - 9.5 [facility] x10(3)/[facility] LABORATORY RBC 4.53 (L) 4.58 - [facility] 5.54 [facility] x10(6)/[facility] LABORATORY Hemoglobin 13.1 (L) 13.7 - [facility] 16.5 gm/dL [facility] Hematocrit 40.8 40.5 - [facility] 48.5 % [facility] MCV 90.1 82.9 - [facility] 93.1 [facility] LABORATORY MCH 28.9 27.5 - [facility] 32.1 pg [facility] MCHC 32.1 32.0 - [facility] 35.7 gm/dL [facility] HOSPITAL LABORATORY Platelets 184 145 - 357 [facility] x10(3)/[facility] LABORATORY RDWSD 47.8 (H) 36.0 - [facility] OLIVIA 45.0 [facility] LABORATORY RDWCV 14.5 (H) 11.4 - [facility] OLIVIA 13.8 % [facility] LABORATORY MPV 11.9 7.6 - 12.9 [facility] nRBC % Auto 0.0 % [facility] LABORATORY nRBC Abs Auto 0.000 0.000 - [place] OLIVIA 0.000 [facility] x10(3)/[facility] LABORATORY Specimen Anatomical Collection Method Collection Time Receive d Time (Source) Location / / Volume Laterality Blood specimen 11/29/2019 2:32 PM 020 2:55 (specimen) EDT PM EDT Resulting Agency Comment Spec In Lab Darrell Glasgow MD HEMATOLOGY ORDERABLES Performing Organization Address City/State/ZIP Code Phon e Number [address] (ABNORMAL) CK (11/29/2019 2:32 PM EDT) athologist Signature CK, Total 3,282 (H) 0 - 200 [facility] unit/L [facility] LABORATORY Specimen Anatomical Collection Method Collection Time Receive d Time (Source) Location / / Volume Laterality Blood specimen 11/29/2019 2:32 PM 020 2:32 (specimen) EDT PM EDT Resulting Agency Comment Spec In Lab Gretchen Yoon MD CHEMISTRY ORDERABLES Performing Organization Address City/[facility] [place] [address] (ABNORMAL) Troponin (11/29/2019 2:32 PM EDT) athologist Signature Troponin-T 20.33 (H) 0.00 - [place] OLIVIA 0.00 ng/mL [facility] LAB[facility] Comment: The 99th percentile for Troponin T is le ss than 0.01 ng/mL, any detectable cTnT concentration using this assay should be considered elevated. According to the third universal definit ion of myocardial infarction the following criteria with a clinical prese ntation consistent with acute myocardial ischemia meets the diagnosis for a myocardial infarction (SD). Detection of a rise and/or fall of [...] additional sample may be indicated. Reference: Third [place] Definition of Myocardial Infarction. Journal of the [place] [employer] 2012;60:1581-98 Specimen Anatomical Collection Method Collection Time Receive d Time (Source) Location / / Volume Laterality Blood specimen 11/29/2019 2:32 PM 020 2:32 (specimen) EDT PM EDT Resulting Agency Comment Spec In Lab Gretchen Yoon MD CHEMISTRY ORDERABLES Performing Organization Address [facility] [place] [address] (ABNORMAL) APTT (11/29/2019 2:32 PM EDT) P athologist Signature PTT 114 25 - 37 [facility] (Critical) Counts include 234 beds at the [facility] LABORATORY Comment: Critical Result called by [...] Yoon MD HEMATOLOGY ORDERABLES Performing Organization Address [facility] [place] [address] (ABNORMAL) Prothrombin Time (11/29/2019 2:32 PM EDT) P athologist Signature PT 13.5 (H) 9.4 - 12.5 [facility] LABORATORY INR 1.2 [facility] LABORATORY [...] Organization Address City/State/[place] [address] (ABNORMAL) Hepatic Function Panel (11/29/2019 2:32 PM EDT) P athologist Signature Total Protein 6.3 6.1 - 8.0 [facility] Albumin 3.6 3.2 - 5.2 [facility] AST 257 (H) 0 - 39 [facility] unit/L [facility] ALT 50 0 - 55 [facility] unit/L [facility] Alk Phos 84 40 - 130 [facility] unit/L [facility] Total 0.3 0.2 - 1.3 [facility] Bilirubin mg/dL [facility] LAB[facility] Bili, Direct 0.1 0.0 - 0.3 [facility] [place] mg/dL [facility] LABORATORY Specimen Anatomical Collection Method Collection Time Receive d Time (Source) Location / / Volume Laterality Blood specimen 11/29/2019 2:32 PM 020 2:32 (specimen) EDT PM EDT Resulting Agency Comment Spec In Lab Gretchen Yoon MD CHEMISTRY ORDERABLES Performing Organization Address City/[facility]/[place] [address] (ABNORMAL) pro-Brain Natriuretic Peptide (11/29/2019 2:32 PM EDT) P athologist Signature ProBNP 272 (H) <=125 pg/mL [facility] LABORATORY Specimen Anatomical Collection Method Collection Time Receive d Time (Source) Location / / Volume Laterality Blood specimen 11/29/2019 2:32 PM 020 2:32 (specimen) EDT PM EDT Resulting Agency Comment Spec In Lab Gretchen Yoon MD CHEMISTRY ORDERABLES Performing Organization Address City/[facility]/ZIP Code Phon e Number [place] Magnesium (11/29/2019 2:32 PM EDT) athologist Signature Magnesium 0.76 0.69 - 1.07 [facility] mmol/L [facility] LABORATORY Specimen Anatomical Collection Method Collection Time Receive d Time (Source) Location / / Volume Laterality Blood specimen 11/29/2019 2:32 PM 020 2:32 (specimen) EDT PM EDT Resulting Agency Comment Spec In Lab Gretchen Yoon MD CHEMISTRY ORDERABLES Performing Organization Address City/State/ZIP Code Phon e Number [address] (ABNORMAL) Basic Metabolic Panel (non-fasting) (11/29/2019 2:32 PM EDT) athologist Signature Glucose Lvl 149 65 - 199 [facility] mg/dL [facility] LABOR[facility] Comment: Diabetes: >=200 mg/dL plus symp toms BUN 16 10 - 20 mg/dL [facility] LABORATORY Creatinine 0.94 0.80 - 1.50 mg/dL [facility] LABORATORY Sodium 135 135 - 145 mmol/L [facility] LABORATORY Potassium 4.5 3.5 - 5.0 mmol/L [facility] LABORATORY Comment: Please note: ??Patients with [...] Anion Gap 15 5 - 15 mmol/L [facility] LABORATORY Calcium 8.0 (L) 8.5 - 10.5 mg/dL [facility] LABORATORY Estimated GFR 80 >=60 mL/min/1.73 m?? [facility] LABORATORY Comment: The eGFR was calculated using the CKD-EP I equation. As with all creatinine based estimates of kidney function, eGFR values calculated with the CKD-EPI equation are not accurate in patients wi th acute kidney failure, extremes of body mass or the acutely ill. http://Cause.it/[facility] eGFR 93 >=60 mL/min/1.73 m?? [facility] LABORATORY Comment: The eGFR was calculated using the CKD-EP I equation. As with all creatinine based estimates of kidney function, eGFR values calculated with the CKD-EPI equation are not accurate in patients wi th acute kidney failure, extremes of body mass or the acutely ill. http://Cause.it/[facility] Specimen Anatomical Collection Method Collection Time Receive d Time (Source) Location / / Volume Laterality Blood specimen 11/29/2019 2:32 PM 020 2:32 (specimen) EDT PM EDT Resulting Agency Comment Spec In Lab Gretchen Yoon MD CHEMISTRY ORDERABLES Performing Organization Address City/[facility] [place] [address] EKG 12 Lead (11/29/2019 11:38 AM EDT) [facility] gist Method Time Signature Ventricular rate 60 BPM MUSE SYSTEM Atrial Rate 60 BPM MUSE SYSTEM P-R Interval 140 ms MUSE SYSTEM QRS Duration 86 ms MUSE SYSTEM Q-T Interval 474 ms MUSE SYSTEM QTC Calculated 474 ms MUSE SYSTEM (Bezet) Calculated P [place] 48 degrees MUSE SYSTEM Calculated R [place] 14 degrees MUSE SYSTEM Calculated T [place] 58 degrees MUSE SYSTEM INTERPRETATION Normal sinus rhythm MUSE SYSTEM Possible Inferior infarct (cited on or before 29-NOV-2019) Abnormal ECG When compared with ECG of 29-NOV-2019 09:01, Sinus rhythm has replaced Junctional rhythm Serial changes of evolving Inferior infarct Present Confirmed by MD Roberto, eTllo Crowell (1950) on 11/29/2019 1:38:0 6 PM Specimen Anatomical Collection Method Collection Time Receive d Time (Source) Location / / Volume Laterality 11/29/2019 11:38 11/29/2019 1:38 AM EDT PM EDT Gretchen Yoon MD ECG ORDERABLES Performing Organization Address City/[facility] Phon e Number MUSE SYSTEM CARDIAC CATHETERIZATION (11/29/2019 11:15 AM EDT) Anatomical Region Laterality Modality Other Specimen (Source) Anatomical Location Collection Method / Collectio n Time Received Time / Laterality Volume Narrative 11/30/2019 1:09 PM EDT ?[facility] ? Cardiac Cathete rization/Intervention Report ? Patient Name: Salinas, Angel Luis H. ? Procedure Date: 11/29/2019 ? A #: [id number] ? Primary Physician: Shaan, Gretchen N ? Case #: [id number] ? File Name: [id number] ? Catheterization Order Number: [id number] ? [facility] ? Final Report [place], [place] ? Patient Name: ? Angel Luis Salinas ? ID#: ?[id number] ? : ?1945 ? Procedure Date: ? [...] procedure was Emergent. The indication for ?the microbiology lab assistant visit is ACS less than or equal [...] dose administered prior to arrival in the microbiology lab assistant. ?Recommended anti-platelet/anti- thrombotic regimen: ?Continue aspirin 81 mg daily fo r indefinitely. ?Continue clopidogrel 75 mg marco a y for 12 months then stop. ?These recommendations are made at the time of the intervention. Patient ?and provider preferences or a c hanging clinical situation may require ?modification of this regimen. C marvult [facility] Interventional Cardiology for ?questions. ? Conclusions: ?* [...] note might be different from the original. [facility] Cardiac Catheterization/Intervention Re port Patient Name: SalinasAngel Luis Procedure Date: 11/29/2019 A #: [id number] Primary Physician: Gretchen Yoon Case #: [id number] File Name: [id number] Catheterization Order Number: [id number] [facility] Final Report [place], [place] Patient Name: Angel Luis Salinas ID#: [id number] : 1945 Procedure Date: November 29, [...] was designated as ASA Class IV. The [facility] clinical frailty scale is 4: Vulnerable. Diagnostic Tests: Electrocardiography: EKG was assessed by ECG. EKG was Abnorm al. EKG showed ST Deviation >= 0.5 mm. Medications Prior to Procedure: Aspirin. Indications for Diagnostic Cath: The priority of the diagnostic procedur e was Emergent. The indication for the microbiology lab assistant visit is ACS less than or equal [...] priority for the procedure was Emergent. The [facility] indication for the procedure was [...] the culprit lesion. A guidewire was krishna mcihael across this lesion. Vessel flow pre intervention [...] this intervention was 10%. The final TI SD flow was 2. Distal 90% Thrombectomy and [...] this intervention was 10%. The final TI SD flow was 2. Vascular Access: Vascular Access [...] administered prior t o arrival in the microbiology lab assistant. Recommended anti-platelet/anti-thrombot ic regimen: Continue aspirin 81 mg daily for indefi nitely. Continue clopidogrel 75 mg daily for 12 months then stop. These recommendations are made at the t loyda of the intervention. Patient and provider preferences or a changing clinical situation may require modification of this regimen. Consult [facility] Interventional Cardiology for questions. [...] Signature POC pH 7.33 (L) 7.35 - [facility] 7.45 [facility] LABORATORY POC PCO2 33 (L) 35 - 45 [facility] mmHg [facility] LABORAT[facility] POC PO2 56 (L) 85 - 104 [facility] LABORATORY POC Base Excess -8.0 (L) -3.0 - 3.0 [facility] K mmol/L [facility] LABORAT[facility] POC HCO3 17.4 (L) 20.0 - [facility] 26.0 [facility] mmol/[facility] LABORATORY POC Sodium 137 135 - 145 [facility] mmol/L [facility] LABORATORY POC Potassium 3.6 3.5 - 5.0 [facility] mmol/L [facility] POC Ionized Ca 1.15 1.15 - [facility] 1.33 [facility] POC Hematocrit 37.0 (L) 40.0 - [facility] 51.0 % [facility] LABORATORY POC Calc Hgb 12.6 (L) 13.7 - [facility] 17.5 gm/dL [facility] LAB[facility] Comment: The calculation of hemoglobin f rom hematocrit assumes a normal MCHC. POC Bgas Loc CC LAB [facility] LABORATORY Specimen Anatomical Collection Method Collection Time Receive d Time (Source) Location / / Volume Laterality Blood specimen 11/29/2019 9:17 AM 020 7:35 (specimen) EDT AM EDT Gretchen Yoon MD CHEMISTRY ORDERABLES Performing Organization Address City/State/[place] [address] EKG 12 Lead (11/29/2019 9:01 AM EDT) Component Value Ref Range Test Analysis Performed Pathologis t Method Time At Signature Ventricular rate 80 BPM MUSE SYSTEM Atrial Rate 79 BPM MUSE SYSTEM QRS Duration 94 ms MUSE SYSTEM Q-T Interval 436 ms MUSE SYSTEM QTC Calculated 502 ms MUSE SYSTEM (Bezet) Calculated R [place] 54 degrees MUSE SYSTEM Calculated T [place] 80 degrees MUSE SYSTEM INTERPRETATION Normal sinus rhythm MUSE SYSTEM Inferior infarct , possibly acute Prolonged QT * ACUTE SD ?? Consider right ventricular involvement in acute [...] 5 MIN PRN, 3 doses, Starting on 12/07/19 at 1236, Until 12/08/19 at 1811, [...] on 11/30/19 at 2017, Until 12/08/19 at 1811, [...] on 11/30/19 at 2017, Until 12/08/19 at 1811, [...] 08 (Given - Provider: Amaya Anderson RN) 1042 [...] ONCE, 1 dose, 12/06/19 at 0515, Ad brand engineer over 120 Minutes magnesium sulfate 2 g [...] Mukesh Bentley, NIURKA)0239 (Stopped - Provider: Mukesh Bentley RN) 250 [...] tarting 12/01/19 at 1348, Until 12/08/19 at 181, Itching, hives and itching, Notify service if given. May give up to 400 mg per day, Routine heparin (porcine) injection 0-8,000 Units (CANCELED) 2 336 (Given - Provider: Mukesh Bentley, NIURKA) 0-8,000 Units, Intravenous, BOLUS PER [facility] PROTOCOL, Starting 12/06/19 at 0926, Until 12/08/19 [...] rting 11/29/19 at 1125, Until 12/08/19 at 181, Chest pain, May repeat every [...] Starting Wed at 0615, Until Sun12/08/19 at 1811, Constipation, Routine potassium chloride ER (K-Dur/Klor-Con) tablet 20 mEq(Linked Group 2) 0630 (See Alternative - Provider: Mukesh Bentlye RN)1645 (Given - Provider: Amaya Adnerson RN) 0230 (Given - Provider: Russell Ventura [...] Oral, EVERY 4 HOURS PRN, Startin g Mcintosh 11/30/19 at 2016, Until Sun12/08/19 at 1811, hypokalemia
Administer for serum potassium (mMol/L) of 3.9 - 4 See instructions for Potassium Protocol in online policies.
Routine Or potassium chloride ER (K-Dur/Klor-Con) tablet 40 mEqJump to med 40 mEq, Oral, EVERY 4 HOURS PRN, Startin g Mcintosh 11/30/19 at 2016, Until Sun12/08/19 at 1811, hypokalemia
Administer for serum potassium (mMol/L) of 3.6 - 3.8 See instructions for Potassium Protocol in online policies.
Routine documented in this encounter Care Teams Payroll Secretary Relationship Specialty Start Date End Date France Lam MD PCP - General 05/02/13 02/04/20 [address] [place] [address] documented as of this encounter
--- OUTSIDE RECORDS SUMMARY | 2022-04-06 10:59 | XMS_ITS | Encounter Summary ---
:1945 Author Organization [facility] Address [address] [place] [address] Care Team Providers Name Role Phone France Lam MD Primary Care Provider Reason for Visit Reason Comments Claudication Encounter Details Date Type Department Care Team Description 05/13/2013 Office Visit Vascular Surgery at David Sim from [facility] MD Bobby peripheral vascular [facility] dis ease, left (Primary Drive [address]) [place], [place] VASCULAR SURGERY [address] [place] [address] [phone] Social History Tobacco Use Types Packs/Day Years [...] unspecified documented in this encounter Care Teams Money Market Dealer Relationship Specialty Start Date End Date France Lam MD PCP - General 05/02/13 02/04/20 [address] [place] [address] documented as of this encounter
--- OUTSIDE RECORDS SUMMARY | 2022-04-06 10:59 | XMS_ITS | Encounter Summary ---
:1945 Author Organization [facility] [place] [address] Care Team Providers Name Role Phone France Lam MD Primary Care Provider Encounter Details Date Type Department Care Team Description 05/13/2013 Orders Only Vascular Surgery at Anabella Sanchez PVD (xi luis [facility] vascular ultrasound technologist disease) [facility] (Primary Dx) [place] [address] Social History Tobacco Use Types Packs/Day [...] unspecified documented in this encounter Care Teams Heel Edge Inker Machine Relationship Specialty Start Date End Date France Lam MD PCP - General 05/02/13 02/04/20 [address] [place] [address] documented as of this encounter
--- OUTSIDE RECORDS SUMMARY | 2022-04-06 10:59 | XMS_ITS | Encounter Summary ---
:1945 [place] [address] Care Team Providers Name Role Phone France Lam MD Primary Care Provider Encounter Details Date Type Department Care Team Description 11/29/2019 Telephone Cardiovascular [facility] Silvio piedra MD [facility] Devin [place] [address] [place] [address] [phone] (Wo rk) Social History Tobacco Use Types [...] 50s EKG: Inferior STEMI Silvio Real MD [employer]pper PGY-4 11/29/2019 documented in this encounter Plan of Treatment Not on filedocumented as of this encounter Visit Diagnoses Not on filedocumented in this encounter Care Teams Teacher'S Aide Relationship Specialty Start Date End Date France Lam MD PCP - General 05/02/13 02/04/20 [address] [place] [address] documented as of this encounter
--- OUTSIDE RECORDS SUMMARY | 2022-04-06 10:59 | XMS_ITS | Encounter Summary ---
:1945 Author Organization [facility] [address] Care Team Providers Name Role Phone France Lam MD Primary Care Provider Encounter Details Date Type Department Care Team Description 11/29/2019 External Results [place] [address] Social History Tobacco Use Types Packs/Day [...] filedocumented in this encounter Care Teams Freight Adjuster Relationship Specialty Start Date End Date France Lam MD PCP - General 05/02/13 02/04/20 [address] [place] [address] documented as of this encounter
--- OUTSIDE RECORDS SUMMARY | 2022-04-06 10:59 | XMS_ITS | Encounter Summary ---
:1945 Author Organization [facility] [place] [address] Care Team Providers Name Role Phone France Lam MD Primary Care Provider Encounter Details Date Type Department Care Team Description 05/13/2013 Ancillary Vascular Surgery at Clarit[facility] (Primary Appointment [facility] Cesilia Sebastian, [place] Dx) [place] [id number] Social History Tobacco Use Types Packs/Day Years [...] Value Ref Test Analysis Performed At [facility] gist Range Method Time Signature VB Text VASCUBASE Report Department: Vascular Surgery Lab Patient: [id number] (ANGEL LUIS HI) CPT Code: 55857 ICD-9: 440.21 Referring Physician: FRANCE LAM Indication: [...] Posterior Tibial (Ankle) Art derrell ??84 ?0.64 ??[place]- Biphasic ?? Interpretation: RIGHT: ??Mild lower extremity [...] limb documented in this encounter Care Teams Manager Social Relationship Specialty Start Date End Date France Lam MD PCP - General 05/02/13 02/04/20 [address] [place] [address] documented as of this encounter
[2022-04-11 10:59] VITALS: BP 107/54; PULSE 55
--- OUTSIDE RECORDS SUMMARY | 2022-04-11 11:00 | XMS_ITS | Continuity of Care Document ---
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 Z23 Encounter for [place] immunizationwith CBO C Provider Comments: Encounter for Immunization Diagnosis: ICD-10-CM Active Diagnosis ST. H90.3 Sensorineural [facility] hearing loss, CBOC bilateralwith Provider Comments: Asymmetrical sensorineural hearing loss (SNOMED CT [id number]) Diagnosis: ICD-10-CM Active Diagnosis ST. I25.10 Athscl heart [facility] disease of [place] CB OC coronary artery w/o ang pctrswith Provider Comments: Atherosclerotic Heart Disease of [place] Coronary Artery without Angina Pectoris Medications Combined list of outpatient medications from Department of Defense and Veterans Affairs facilities. Medications provided include 1) outpatient medications from the last 15 months, and 2) patient-reported medications. Medication Details Route Status Patient Prescription Prescription Last Ordering Order Source Instructions Expires Number Dispense Provider Date Date AMIODARONE TAKE ONE ORAL ACTIVE 02/14/2023 [id number] JORGE A LOZA HCL TABLET 2 N 2021 [place] (PACERONE) BY MOUTH [place] 200MG TAB EVERY [facility] DAY AFTER ONE MONTH OF TWICE DAILY DOSING THROUGH 02/26/22 APIXABAN TAKE ONE ORAL ACTIVE 2023 [id number] WILLIE LOZA 01/20/ Departm 5MG TAB TABLET 2 N 2021 ent of BY MOUTH TWICE A s DAY TO Affairs HELP PREVENT BLOOD CLOTS (ANTICOA GULATION CCNRX) APIXABAN TAKE ONE ORAL 12/21/2021 [id number] GIANGR ECO 12/30/ WHITE 5MG TAB TABLET 2 ,MILTON Will 2020 [place] BY MOUTH [place] EVERY [facility] TWELVE HOURS TO HELP PREVENT BLOOD CLOTS (ANTICOA GULATION ) ASPIRIN TAKE ONE ORAL ACTIVE GIANGRECO 12/20/ WHI TE 81MG TAB,EC TABLET ,MILTON Will 2020 ANNALEE ER BY MOUTH [place] EVERY [facility] DAY CHOLECALCIF TAKE ONE ORAL ACTIVE IRASEMA,P 04/22/ ST. DARIO 25MCG TABLET KARYY A 2014 [place] (1,000UNIT) BY MOUTH RY CB OC TAB EVERY OTHER DAY FUROSEMIDE TAKE ONE ORAL ACTIVE 12/17/2022 [id number] JORGE A LOZA 12/21/ Departm 20MG TAB TABLET 2 N 2021 ent of BY MOUTH [place] EVERY s OTHER Affairs DAY TO REMOVE FLUID/CO NTROL BLOOD PRESSURE FUROSEMIDE TAKE ONE ORAL 11/12/2021 [id number] SJ PATTONM 11/12/ ST. 20MG TAB TABLET 2 ICHAEL 2020 [place] BY MOUTH RY CBOC EVERY OTHER DAY TO REMOVE FLUID/CO NTROL BLOOD PRESSURE LISINOPRIL TAKE ONE ORAL ACTIVE 12/17/2022 [id number] JORGE A LOZA 12/21/ Departm 5MG TAB TABLET 2 N 2021 ent of BY MOUTH EVERY s DAY TO Affairs CONTROL BLOOD PRESSURE LISINOPRIL TAKE ONE ORAL DISCONT 06/08/2022 [id number] JORGE A LZOA 06/15/ WHITE 5MG TAB TABLET INUED 2 N 2020 [place] BY MOUTH [place] EVERY [facility] DAY TO CONTROL BLOOD PRESSURE LISINOPRIL TAKE ONE ORAL 06/03/2021 [id number] SJ PATTON,M 06/08/ ST. 5MG TAB TABLET 1 ICHAEL 2019 [place] BY MOUTH RY CBOC EVERY DAY TO CONTROL BLOOD PRESSURE METOPROLOL TAKE ONE ORAL ACTIVE 02/14/2023 [id number] JORGE A LOZA 02/15/ WHITE SUCCINATE TABLET 2 N 2021 [place] 25MG TAB,SA BY MOUTH [place] EVERY [facility] DAY FOR BLOOD PRESSURE /HEART METOPROLOL TAKE ONE ORAL DISCONT 02/23/2022 [id number] JS PATTONM 02/28/ ST. SUCCINATE TABLET INUED 2 ICHAEL 2020 [place] 25MG TAB,SA BY MOUTH RY CB OC EVERY DAY FOR BLOOD PRESSURE /HEART NITROGLYCER TAKE ONE SUBLIN 02/23/2022 [id number] Mery LR 02/28/ ST. 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 2020 [...] result by 1.210 Tests performed on Gonsalez TopChalks (405) SN:[id number] [place] eGFR E] IN SERUM Ordering Pr ovider: [facility] [facility] PANEL OR PLASMA Report Releas ed Date/Time: Feb 24, 2021 11:18 AM Reporting Lab: [facility] [facility] [facility] [address] [place] [facility] [place] [address] Performing Lab: [facility] [place] [facility] [address] [facility] [address] CREATININ GLOMERULAR 44 60 04/28 L Specimen Ty pe: PLASMA WHITE E WITH FILTRATION /2020 Comment: For eGFR: Race unknown, if multiply result by 1.210 Tests performed on Gonsalez Jackhammer Operator (405) SN:[id number] [place] eGFR RATE/1.73 Ordering Prov ider: [place] [facility] PANEL SQ Report Released Date/Time: Feb 24, 2021 11:18 AM M.PREDICTED Reporting L ab: [facility] [facility] [VOLUME [address] [place] [facility] [place] [address] RATE/AREA] Performing L ab: [place] [facility] IN SERUM OR [address] [facility] [address] PLASMA BY CREATININE- BASED FORMULA (MDRD) CBC NO LEUKOCYTES 5.8 4.5 - 11.0 04/28 Specimen T ype: BLOOD WHITE DIFF [#/VOLUME] /2020 No comment en tered. [place] IN BLOOD BY Ordering Pr ovider: [facility] [facility] AUTOMATED Report Releas ed Date/Time: Feb 24, 2021 11:18 AM COUNT Reporting Lab: [facility] [address] [place] [facility] [place] [address] Performing Lab: [facility] [place] [address] [facility] [address] CBC NO ERYTHROCYTE 4.61 4.23 - 04/28 Specimen Typ e: BLOOD WHITE DIFF S 5.66 /2020 No comment enter ed. [place] [#/VOLUME] Ordering Pro vider: [facility] [facility] IN BLOOD BY Report Rele ased Date/Time: Feb 24, 2021 11:18 AM AUTOMATED Reporting Lab : [place] [facility] COUNT [address] [place] [facility] [place] [address] Performing Lab: [facility] [address] [place] [facility] [place] [address] CBC NO HEMOGLOBIN 13.9 12.8 - 17 04/28 Specimen Ty pe: BLOOD WHITE DIFF [MASS/VOLUM /2020 No comment e ntered. [place] E] IN BLOOD Ordering Pr ovider: MILTON UREÑAOC Report Released Date/Time: Feb 24, 2021 11:18 AM Reporting Lab: [facility] [address] [place] [facility] [place] [address] Performing Lab: [facility] [address] [place] [facility] [place] [address] CBC NO HEMATOCRIT 43.6 39.2 - 04/28 Specimen Type : BLOOD WHITE DIFF [VOLUME 50.4 No comment enter ed. [place] FRACTION] Ordering Prov ider: [facility] [facility] OF BLOOD BY Report Rele ased Date/Time: Feb 24, 2021 11:18 AM AUTOMATED Reporting Lab : [facility] [place] COUNT [address] [place] [facility] [place] [address] Performing Lab: [facility] [address] [place] [facility] [place] [address] CBC NO MCV 94.6 82 - 99 04/28 Specimen Type: B LOOD WHITE DIFF [ENTITIC /2020 No comment ente red. [place] VOLUME] BY Ordering Pro vider: MILTON UREÑAOC AUTOMATED Report Releas ed Date/Time: Feb 24, 2021 11:18 AM COUNT Reporting Lab: [facility] [address] [place] [facility] [place] [address] Performing Lab: [facility] [place] [address] [place] [facility] [place] [address] CBC NO MCH 30.2 26.2 - 04/28 Specimen Type: B LOOD WHITE DIFF [ENTITIC 32.6 /2020 No comment ente red. [place] MASS] BY Ordering Provi adrian: MILTON UREÑAOC AUTOMATED Report Releas ed Date/Time: Feb 24, 2021 11:18 AM COUNT Reporting Lab: [facility] [address] [place] [facility] [place] [address] Performing Lab: [facility] [address] [place] [facility] [place] [address] CBC NO MCHC 31.9 30.8 - 04/28 Specimen Type: B LOOD WHITE DIFF [MASS/VOLUM 35.1 /2020 No comment e ntered. [place] E] BY Ordering Provid er: MILTON UREÑA AUTOMATED Report Releas ed Date/Time: Feb 24, 2021 11:18 AM COUNT Reporting Lab: [facility] [address] [place] [facility] [place] [address] Performing Lab: [facility] [place] [address] [place] [facility] [place] [address] CBC NO PLATELETS 141 140 - 360 04/28 Specimen Typ e: BLOOD WHITE DIFF [#/VOLUME] /2020 No comment en tered. [place] IN BLOOD BY Ordering Pr ovider: [place] UREÑ[facility] AUTOMATED Report Releas ed Date/Time: Feb 24, 2021 11:18 AM COUNT Reporting Lab: [facility] [address] [place] [facility] [place] [address] Performing Lab: [facility] [address] [place] [facility] [place] [address] CBC NO PLATELET 12.1 9.2 - 12.4 04/28 Specimen Typ e: BLOOD WHITE DIFF MEAN VOLUME /2020 No comment e ntered. [place] [ENTITIC Ordering Provi adrian: MILTON UREÑAOC VOLUME] IN Report Relea sed Date/Time: Feb 24, 2021 11:18 AM BLOOD BY Reporting Lab: [facility] AUTOMATED [address] [place] [facility] [place] [address] COUNT Performing Lab: [facility] [place] [facility] [address] [place] [facility] [place] [address] CBC NO ERYTHROCYTE 15.0 12.0 - 04/28 Specimen Typ e: BLOOD WHITE DIFF DISTRIBUTIO 16.0 No comment e ntered. [place] N WIDTH Ordering Provid er: MILTON UREÑAOC [RATIO] BY Report Relea sed Date/Time: Feb 24, 2021 11:18 AM AUTOMATED Reporting Lab : [facility] [place] COUNT [address] [place] [facility] [place] [address] Performing Lab: [facility] [address] [place] [facility] [place] [address] CREATININ CREATININE 1.37 0.5 - 1.5 02/22 Specimen Type: PLASMA WHITE E WITH [MASS/VOLUM /2020 Comment: Fo r eGFR: Race unknown, if multiply result by 1.210 Tests performed on Gonsalez TopChalks (405) SN:[id number] [place] eGFR E] IN SERUM Ordering Pr ovider: MILTON UREÑ[facility] PANEL OR PLASMA Report Releas ed Date/Time: Dec 20, 2020 02:24 PM Reporting Lab: [facility] [address] [place] [facility] [place] [address] Performing Lab: [facility] [address] [place] [facility] [place] [address] CREATININ GLOMERULAR 51 60 02/22 L Specimen Ty pe: PLASMA WHITE E WITH FILTRATION /2020 Comment: For eGFR: Race unknown, if multiply result by 1.210 Tests performed on Gonsalez Jackhammer Operator (405) SN:[id number] [place] eGFR RATE/1.73 Ordering Prov ider: MILTON UREÑ[facility] PANEL SQ Report Released Date/Time: Dec 20, 2020 02:24 PM M.PREDICTED Reporting L ab: [facility] [place] [facility] [VOLUME [address] [place] [facility] [place] [address] RATE/AREA] Performing L ab: [facility] [facility] IN SERUM OR [address] [place] [facility] [place] [address] PLASMA BY CREATININE- BASED FORMULA (MDRD) CBC NO LEUKOCYTES 6.8 4.5 - 11.0 02/22 Specimen T ype: BLOOD WHITE DIFF [#/VOLUME] /2020 No comment en tered. [place] IN BLOOD BY Ordering Pr ovider: MILTON UREÑ[facility] AUTOMATED Report Releas ed Date/Time: Dec 20, 2020 02:24 PM COUNT Reporting Lab: [facility] [address] [place] [facility] [place] [address] Performing Lab: [facility] [address] [place] [facility] [place] [address] CBC NO ERYTHROCYTE 5.03 4.23 - 08 Specimen Typ e: BLOOD WHITE DIFF S 5.66 /2020 No comment enter ed. [place] [#/VOLUME] Ordering Pro vider: MILTON UREÑ[facility] IN BLOOD BY Report Rele ased Date/Time: Dec 20, 2020 02:24 PM AUTOMATED Reporting Lab : [facility] [place] [facility] [facility] COUNT [address] [facility] [address] Performing Lab: [facility] [address] [facility] [address] CBC NO HEMOGLOBIN 14.9 12.8 - 17 02/22 Specimen Ty pe: BLOOD WHITE DIFF [MASS/VOLUM /2020 No comment e ntered. [place] E] IN BLOOD Ordering Pr ovider: MILTON UREÑA Report Released Date/Time: Dec 20, 2020 02:24 PM Reporting Lab: [facility] [address] [place] [facility] [place] [address] Performing Lab: [facility] [place] [address] [place] [facility] [place] [address] CBC NO HEMATOCRIT 46.7 39.2 - 02/22 Specimen Type : BLOOD WHITE DIFF [VOLUME 50.4 No comment enter ed. [place] FRACTION] Ordering Prov ider: MILTON UREÑAOC OF BLOOD BY Report Rele ased Date/Time: Dec 20, 2020 02:24 PM AUTOMATED Reporting Lab : [facility] [place] COUNT [address] [place] [facility] [place] [address] Performing Lab: [facility] [address] [place] [facility] [place] [address] CBC NO MCV 92.8 82 - 99 02/22 Specimen Type: B LOOD WHITE DIFF [ENTITIC /2020 No comment ente red. [place] VOLUME] BY Ordering Pro vider: MILTON UREÑAOC AUTOMATED Report Rele ed Date/Time: Dec 20, 2020 02:24 PM COUNT Reporting Lab: [facility] [address] [facility] [address] Performing Lab: [facility] [place] [address] [facility] [address] CBC NO MCH 29.6 26.2 - 08 Specimen Type: B LOOD WHITE DIFF [ENTITIC 32.6 /2020 No comment ente red. [place] MASS] BY Ordering Provi adrian: MILTON UREÑA AUTOMATED Report Releas ed Date/Time: Dec 20, 2020 02:24 PM COUNT Reporting Lab: [facility] [address] [facility] [address] Performing Lab: [facility] [address] [facility] [address] CBC NO MCHC 31.9 30.8 - 08 Specimen Type: B LOOD WHITE DIFF [MASS/VOLUM 35.1 /2020 No comment e ntered. [place] E] BY Ordering Provid er: MILTON UREÑA AUTOMATED Report Releas ed Date/Time: Dec 20, 2020 02:24 PM COUNT Reporting Lab: [facility] [address] [facility] [address] Performing Lab: [facility] [address] [facility] [address] CBC NO PLATELETS 159 140 - 360 08 Specimen Typ e: BLOOD WHITE DIFF [#/VOLUME] /2020 No comment en tered. [place] IN BLOOD BY Ordering Pr ovider: MILTON UREÑA AUTOMATED Report Releas ed Date/Time: Dec 20, 2020 02:24 PM COUNT Reporting Lab: [facility] [address] [facility] [address] Performing Lab: [facility] [address] [facility] [address] CBC NO PLATELET 13.0 9.2 - 12.4 08/24 H Specimen Typ e: BLOOD WHITE DIFF MEAN VOLUME /2020 No comment e ntered. [place] [ENTITIC Ordering Provi adrian: MILTON UREÑA VOLUME] IN Report Relea sed Date/Time: Dec 20, 2020 02:24 PM BLOOD BY Reporting Lab: [facility]OMATED [address] [facility] [address] COUNT Performing Lab: [facility] [address] [facility] [address] CBC NO ERYTHROCYTE 14.6 12.0 - 08/24 Specimen Typ e: BLOOD WHITE DIFF DISTRIBUTIO 16.0 /2020 No comment e ntered. [place] N WIDTH Ordering Provid er: [facility] [RATIO] BY Report Relea sed Date/Time: Dec 20, 2020 02:24 PM AUTOMATED Reporting Lab : [facility] COUNT [address] [facility] [address] Performing Lab: [facility] [address] [facility] [address] P4 UREA 20 7 - 25 08/24 Specimen Type: P LASMA ST. GLU,BUN,C NITROGEN /2020 Comment: For eGFR: Race unknown, if multiply result by 1.210 Tests performed on Yagomart (405) SN:[id number] IVORY BECKETT [MASS/VOLUM Ordering Provider: GRETCHEN PEREZ CA E] IN SERUM Report Rele ased Date/Time: Feb 22, 2021 10:13 AM OR PLASMA Reporting Lab : [facility] [address] [facility] [address] Performing Lab: [facility] [address] [facility] [address] P4 SODIUM 133 135 - 145 08/24 L Specimen Type: PLASMA ST. GLU,BUN,C [MOLES/VOLU /2020 Comment: For eGFR: Race unknown, if multiply result by 1.210 Tests performed on Yagomart (405) SN:[id number] IVORY BECKETT ME] IN Ordering Prov ider: GRETCHEN PEREZ CA SERUM OR Report Release d Date/Time: Feb 22, 2021 10:13 AM PLASMA Reporting Lab: [facility] [address] [facility] [address] Performing Lab: [facility] [address] [facility] [address] P4 POTASSIUM 4.5 3.5 - 5.0 02/22 Specimen Typ e: PLASMA ST. GLU,BUN,C [MOLES/VOLU /2020 Comment: For eGFR: Race unknown, if multiply result by 1.210 Tests performed on Gonsalez TopChalks (405) SN:[id number] IVORY BECKETT MA] IN Ordering Prov ider: GRETCHEN PEREZ SPRINCESS SERUM OR Report Release d Date/Time: Feb 22, 2021 10:13 AM PLASMA Reporting Lab: [facility] [address] [place] [facility] [place] [address] Performing Lab: [facility] [address] [place] [facility] [place] [address] P4 CHLORIDE 102 100 - 110 02/22 Specimen Type : PLASMA ST. GLU,BUN,C [MOLES/VOLU /2020 Comment: For eGFR: Race unknown, if multiply result by 1.210 Tests performed on Gonsalez TopChalks (405) SN:[id number] IVORY BECKETT MA] IN Ordering Prov ider: GRETCHEN PEREZ CA SERUM OR Report Release d Date/Time: Feb 22, 2021 10:13 AM PLASMA Reporting Lab: [facility] [address] [place] [facility] [place] [address] Performing Lab: [place] [facility] [address] [place] [facility] [place] [address] P4 CARBON 21 20 - 30 02/22 Specimen Type: P LASMA ST. GLU,BUN,C DIOXIDE, /2020 Comment: For eGFR: Race unknown, if multiply result by 1.210 Tests performed on Gonsalez TopChalks (405) SN:[id number] IVORY BECKETT [facility] Ordering Prov ider: GRETCHEN PEREZ S,CA [MOLES/VOLU Report Rele ased Date/Time: Feb 22, 2021 10:13 AM MA] IN Reporting Lab: [place] [facility] SERUM OR [address] [facility] [place] [address] PLASMA Performing Lab: [facility] [facility] [address] [place] [facility] [place] [address] P4 ANION GAP 10 4 - 16 02/22 Specimen Type: PLASMA ST. GLU,BUN,C IN SERUM OR /2020 Comment: For eGFR: Race unknown, if multiply result by 1.210 Tests performed on Gonsalez Jackhammer Operator (405) SN:[id number] BLAIR BECKETTTE PLASMA Ordering Prov ider: GRETCHEN PEREZ CA Report Released Date/Time: Feb 22, 2021 10:13 AM Reporting Lab: [facility] [address] [facility] [address] Performing Lab: [facility] [address] [facility] [address] P4 GLUCOSE 106 65 - 100 08/24 H Specimen Type: PLASMA ST. GLU,BUN,C [MASS/VOLUM /2020 Comment: For eGFR: Race unknown, if multiply result by 1.210 Tests performed on Gonsalez Jackhammer Operator (405) SN:[id number] MARCELA NYELYTE E] IN SERUM Ordering Provider: GRETCHEN PEREZ CA OR PLASMA Report Releas ed Date/Time: Feb 22, 2021 10:13 AM Reporting Lab: [facility] [address] [facility] [address] Performing Lab: [facility] [address] [facility] [address] P4 CREATININE 1.37 0.5 - 1.5 02/22 Specimen Ty pe: PLASMA ST. GLU,BUN,C [MASS/VOLUM /2020 Comment: For eGFR: Race unknown, if multiply result by 1.210 Tests performed on Gonsalez Jackhammer Operator (405) SN:[id number] BLAIR BECKETTTE E] IN SERUM Ordering Provider: GRETCHEN PEREZ CA OR PLASMA Report Releas ed Date/Time: Feb 22, 2021 10:13 AM Reporting Lab: [facility] [address] [facility] [address] Performing Lab: [facility] [address] [facility] [address] P4 CALCIUM 9.6 8.5 - 10.5 02/22 Specimen Type : PLASMA ST. GLU,BUN,C [MASS/VOLUM /2020 Comment: For eGFR: Race unknown, if multiply result by 1.210 Tests performed on Gonsalez Jackhammer Operator (405) SN:[id number] MARCELA NYELYTE E] IN SERUM Ordering Provider: ANA,GRETCHEN CBOC S,CA OR PLASMA Report Releas ed Date/Time: Feb 22, 2021 10:13 AM Reporting Lab: [facility] [address] [facility] [address] Performing Lab: [facility] [place] [facility] [address] [facility] [address] P4 GLOMERULAR 51 60 02/22 L Specimen Type : PLASMA ST. GLU,BUN,C FILTRATION /2020 Comment: F or eGFR: Race unknown, if multiply result by 1.210 Tests performed on Gonsalez TopChalks (405) SN:[id number] MARCELA REIVORY MILLER RATE/1.73 Ordering Pr ovider: GRETCHEN PEREZ S,CA SQ Report Released Date/Time: Feb 22, 2021 10:13 AM M.PREDICTED Reporting L ab: [facility] [VOLUME [address] [facility] [address] RATE/AREA] Performing L ab: [facility] IN SERUM OR [address] [facility] [address] PLASMA BY CREATININE- BASED FORMULA (MDRD) LIVER PROTEIN 8.0 6.0 - 8.5 02/22 Specimen Type: PLASMA ST. PROFILE [MASS/VOLUM /2020 Comment: Fo r eGFR: Race unknown, if multiply result by 1.210 Tests performed on Gonsalez TopChalks (405) SN:[id number] [facility] E] IN SERUM Ordering Pr ovider: GRETCHEN PEREZ CBOC OR PLASMA Report Releas ed Date/Time: Feb 22, 2021 10:13 AM Reporting Lab: [facility] [address] [place] [facility] [place] [address] Performing Lab: [facility] [address] [facility] [address] LIVER ALBUMIN 4.0 3.2 - 5.0 02/22 Specimen Type: PLASMA ST. PROFILE [MASS/VOLUM /2020 Comment: Fo r eGFR: Race unknown, if multiply result by 1.210 Tests performed on Gonsalez TopChalks (405) SN:[id number] [facility] E] IN SERUM Ordering Pr ovider: GRETCHEN PEREZ CBOC OR PLASMA Report Releas ed Date/Time: Feb 22, 2021 10:13 AM Reporting Lab: [facility] [address] [facility] [address] Performing Lab: [facility] [address] [place] [facility] [place] [address] LIVER BILIRUBIN.T 0.6 0.2 - 1.2 02/22 Specimen T ype: PLASMA ST. PROFILE OTAL /2020 Comment: For eG FR: Race unknown, if multiply result by 1.210 Tests performed on Gonsalez TopChalks (405) SN:[id number] [facility] [MASS/VOLUM Ordering Pr ovider: GRETCHEN PEREZ E] IN SERUM Report Rele ased Date/Time: Feb 22, 2021 10:13 AM OR PLASMA Reporting Lab : [facility] [address] [facility] [address] Performing Lab: [facility] [address] [facility] [address] LIVER ALKALINE 75 40 - 150 02/22 Specimen Type: PLASMA ST. PROFILE PHOSPHATASE Comment: Fo r eGFR: Race unknown, if multiply result by 1.210 Tests performed on Gonsalez TopChalks (405) SN:[id number] [facility] [ENZYMATIC Ordering Pro vider: GRETCHEN PEREZ ACTIVITY/VO Report Rele ased Date/Time: Feb 22, 2021 10:13 AM LUME] IN Reporting [facility] [address] [place] [facility] [place] [address] PLASMA Performing Lab: [facility] [address] [place] [facility] [place] [address] LIVER ALANINE 16 7 - 52 02/22 Specimen Type: P LASMA ST. PROFILE AMINOTRANSF Comment: Fo r eGFR: Race unknown, if multiply result by 1.210 Tests performed on Gonsalez TopChalks (405) SN:[id number] [facility] ERASE Ordering Provid er: GRETCHEN PEREZ [ENZYMATIC Report Relea sed Date/Time: Feb 22, 2021 10:13 AM ACTIVITY/VO Reporting L ab: [facility] IN [address] [facility] [place] [address] SERUM OR Performing Lab : [facility] [address] [place] [facility] [place] [address] LIVER ASPARTATE 17 5 - 34 02/22 Specimen Type: PLASMA ST. PROFILE AMINOTRANSF Comment: Fo r eGFR: Race unknown, if multiply result by 1.210 Tests performed on [employer] Jackhammer Operator (405) SN:[id number] [facility] ERASE Ordering Provid er: GRETCHEN PEREZ [ENZYMATIC Report Relea sed Date/Time: Feb 22, 2021 10:13 AM ACTIVITY/VO Reporting [facility] IN [address] [facility] [address] SERUM OR Performing Lab : [facility] PLASMA [address] [place] [facility] [place] [address] LIPOPROTE CHOLESTEROL 361 0 - 199 08/24 H Specimen T ype: PLASMA ST. IN [MASS/VOLUM /2020 Comment: Fo r eGFR: Race unknown, if multiply result by 1.210 Tests performed on [employer] Jackhammer Operator (405) SN:[id number] [facility] CHOLESTER E] IN SERUM Ordering Provider: GRETCHEN PEREZ OL FRACT. OR PLASMA Report Rele ased Date/Time: Feb 22, 2021 10:13 AM PANEL Reporting [facility] [address] [facility] [address] [facility]forming [facility]: [facility] [address] [place] [facility] [place] [address] LIPOPROTE TRIGLYCERID 170 0 - 149 08/24 H Specimen T ype: PLASMA ST. IN E Comment: For eG FR: Race unknown, if multiply result by 1.210 Tests performed on [employer] (405) SN:[id number] [facility] CHOLESTER [MASS/VOLUM Ordering Provider: GRETCHEN PEREZ OL FRACT. E] IN SERUM Report Re leased Date/Time: Feb 22, 2021 10:13 AM PANEL OR PLASMA Reporting [facility] : [facility] [address] [facility] [address] Performing Lab: [facility] [address] [facility] [address] LIPOPROTE CHOLESTEROL 46 40 08/24 Specimen T ype: PLASMA ST. IN IN HDL /2020 Comment: For eG FR: Race unknown, if multiply result by 1.210 Tests performed on Gonsalez TopChalks (405) SN:[id number] [facility] CHOLESTER [MASS/VOLUM Ordering Provider: GRETCHEN PEREZ OL FRACT. E] IN SERUM Report Re leased Date/Time: Feb 22, 2021 10:13 AM PANEL OR PLASMA Reporting Lab : [facility] [address] [facility] [address] Performing Lab: [facility] [address] [facility] [address] LIPOPROTE CHOLESTEROL 281 0 - 129 08/24 H Specimen T ype: PLASMA ST. IN IN LDL /2020 Comment: For eG FR: Race unknown, if multiply result by 1.210 Tests performed on Gonsalez Jackhammer Operator (405) SN:[id number] MARCELA CHOLESTER [MASS/VOLUM Ordering Provider: GRETCHEN PEREZ OL FRACT. E] IN SERUM Report Re leased Date/Time: Feb 22, 2021 10:13 AM PANEL OR PLASMA Reporting Lab : [facility] BY [address] [facility] [address] CALCULATION Performing Lab: [facility] [address] [facility] [address] VITAMIN COBALAMIN 312 200 - 900 08/24 Specimen Typ e: SERUM ST. B-12 (VITAMIN /2020 Comment: Tests performed on Gonsalez Jackhammer Operator (405) SN:[id number] MARCELA B12) Ordering Provid er: GRETCHEN PEREZ [MASS/VOLUM Report Rele ased Date/Time: Feb 22, 2021 10:13 AM E] IN SERUM Reporting L ab: [facility] OR PLASMA [address] [facility] [address] Performing Lab: [facility] [address] [facility] [address] GLYCOHEMO HEMOGLOBIN 6.2 4.0 - 5.6 08/24 H Specimen Type: BLOOD ST. GLOBIN A1C/HEMOGLO /2020 Comment: Te sts performed on Gonsalez Jackhammer Operator (405) SN:[id number] MARCELA (A1C BIN.TOTAL Ordering Prov ider: GRETCHEN PEREZ ONLY) IN BLOOD BY Report Rele ased Date/Time: Feb 22, 2021 10:13 AM HPLC Reporting Lab: [facility] [address] [facility] [address] Performing Lab: [facility] [address] [facility] [address] VIT D CALCIFEROL 40.8 20 - 50 08/24 Specimen Type : SERUM ST. 25-OH(WRJ (VIT D2) /2020 Comment: Kirsten ts performed on Gonsalez Jackhammer Operator (405) SN:[id number] MARCELA ) [MASS/VOLUM Ordering Pr ovider: GRETCHEN PEREZ E] IN SERUM Report Rele ased Date/Time: Feb 22, 2021 10:13 AM OR PLASMA Reporting Lab : [facility] [address] [facility] [address] Performing Lab: [facility] [address] [facility] [address] Encounters Combined list of: 1) Encounters from Department of Veterans Affairs facilities going back up to the last 18 months. 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 Location Location Encounter Encounter Reason Attending ADM DC Stat us Disposition Source Details Type Number For Provider Date Date Visit Outpatient 43298-6.40 09/30 [facility] En[facility] [id number] /[facility] 81653-8.40 10/19 [facility] Encounter [id number] /2020 [facility] 13287-3.40 11/11 [facility] Encounter [id number] /[place] [facility] [place] 22243-2.40 11/11 [facility] Encounter [id number] /2020 [facility] 83351-3.40 11/11 [facility] Encounter [id number] /2020 [facility] [place] 92071-2.40 12/13 [facility] En[facility] [id number] /2020 [facility] 89021-7.40 Diagnos ADELITA, 12/20 W JIM[place] PHONE CALL [id number] is: MILTON B /2020 R IVER 11-20 MIN ICD-10- JCT CM [facility] 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
Provide r Comment s: Long-te rm current use of anticoa gulant (SCT 9702857 03) Outpatient 69747-4.40 02/22 WH[facility] E Encounter [id number] [facility] O/P 86403-1.40 Diagnos SÁNCHEZ PEREZ 02/22 ST. EST MOD [id number] is: CHAEL JOHNSBU 30-39 MIN 29 ICD-10- RY [facility]OC CM I25.10 Athscl heart disease of [place] coronar y artery w/o ang pctrs<b r/>with Provide r Comment s: Atheros cleroti c Heart Disease of [place] Coronar y Artery without Angina Pectori s Outpatient 02/24 WH[facility] E Encounter [id number] /2021 [facility] [facility] MTMS BY Diagnos GUERDABINGJose Elias, 02/24 WHITE PHARM EST [id number] is: MILTON RI DORI 15 MIN ICD-10- [place] [facility] Z79.01 alf (curren t) use of anticoa gulants
Provide r Comment s: Long-te rm current use of anticoa gulant (SCT 0571899 03) Outpatient 03/02 WH[facility] E Encounter [id number] /2021 [facility] [facility] COMPREHENS 52208-2.40 Diagnos RADHA, 04/12 ST. ELA [id number] is: HLEY A [facility] HEARING 39 ICD-10- RY [facility] TEST CM H90.3 Sensori neural hearing loss, bilater al
with Provide r Comment s: Asymmet rical sensori neural hearing loss (SNOMED CT 3578520 09) Outpatient 04/15 WH[facility] E Encounter [id number] /2021 [facility] [facility] OFFICE O/P 53457-3.40 Diagnos PETTIGLIO, 04/28 ST. EST [id number] is: SAMMY A JOHNSB U MINIMAL 02 ICD-10- RY CBOC PROB CM Z23 Encount er for immuniz ation<b r/>with Provide r Comment s: Encount er for Immuniz ation HC PRO 36405-6.40 Diagnos NICOLA LEONE 04/29 W JIMBO PHONE CALL [id number] is: AN RIVE R 11-20 MIN ICD-10- [place] CM [facility] Z79.01 alf (curren t) use of anticoa gulants
wi th Provide r Comment s: Long-te rm current use of anticoa gulant ([facility] [id number] 03) Outpatient 93242-5.40 07/04 WHIT E Encounter [id number] /2022 [facility] Social History Combined list of available smoking, tobacco, and other social history from [facility] Social History Response Date Comment Source Type Tobacco smoking VA-TOBACCO FORMER 02/22/2021 [facility] status NHIS USER History of tobacco VA-TOBACCO QUIT 1 02/22/2021 [facility] use TO < 5 YRS History of tobacco VA-TOBACCO FORMER 03/04/2020 [facility] use USER History of tobacco VA-TOBACCO USE 03/21/2018 [facility] use TACTICAL [employer] NO History of tobacco CURRENT SMOKER 01/16/2018 [facility] use History of tobacco CURRENT SMOKER 03/28/2017 [facility] use CLINIC History of tobacco CURRENT SMOKER 04/17/2016 smokes about half [facility] use a pack a day History of tobacco CURRENT SMOKER 04/22/2015 smokes about half [facility] use a pack a day Advance Directives List of completed, amended, or rescinded Advance Directives on record at Department of Veterans Affairs facilities. An actual copy of the Directive is not included. Date Advance Directive Provider Source 01/15/2019 ADVANCE DIRECTIVE DISCUSSION STEPHANIE HERNANDEZ [facility]
--- OUTSIDE RECORDS SUMMARY | 2022-04-11 11:00 | XMS_ITS | Encounter Summary ---
:1945 Author Organization [facility] Address [address] [place] [address] Care Team Providers Name Role Phone Jennifer Gomez COO Primary Care Provider Encounter Details Date Type Department Care Team Description 02/15/2022 Lab Requisition [facility] Outr Resulting Lab, Pathology & Laboratory Provider [facility] [address] [place], [place] [address] Social History Tobacco Use Types Packs/Day Years [...] Free 9.3 (H) 2.8 - 5.3 pg/mL [facility] Specimen Blood - Venous blood (substance) Performing Organization Address City/State/ZIP Code Phon e Number [facility] [address] [place] [address] SERVICES documented in this encounter Visit Diagnoses Not on filedocumented in this encounter Care Teams Probation And Patrol Agent Relationship Specialty Start Date End Date Jennifer Gomez, COO PCP - General 05/10/15 [facility] [address] [place], [place] [phone] documented as of this encounter
--- OUTSIDE RECORDS SUMMARY | 2022-04-11 11:00 | XMS_ITS | Clinical Summary ---
:1945 Author Organization [facility] Address [address] [place] [address] Care Team Providers Name Role Phone Jennifer Gomez Bunny PROJECT CONTROL OFFICER Primary Care Provider Encounters Date Type Specialty [...] Free 9.3 (H) 2.8 - 5.3 pg/mL [facility] Specimen Blood - Venous blood (substance) Performing Organization Address City/State/ZIP Code Phon e Number [facility] [address] [place] [address] SERVICES FECAL BACTERIAL PATHOGENS BY PCR (01/24/2022 14:50 EDT) Pathologist Sig nature Salmonella PCR Negative Negative [facility] SERVICES Shigella/Enteroinvasive Negative Negative [facility]. [facility] SERVICES HN LAB CAMPYLOBACTER PCR Negative Negative [facility] LABORATORY SERVICES Shiga Toxin PCR Negative Negative [facility] Specimen Feces - Specimen from rectum (specimen) Performing Organization Address City/State/ZIP Code Phon e Number [facility] [address] [place] [address] SERVICES from Last 3 Months Insurance Payer Benefit Plan Subscriber ID Effective Phone Address Typ e / Group Dates [employer] OF M[employer] OF [id number] 2018-Prese [id number] [employer] Com mercial [address] [place]AT[place] [address] MEDICARE MEDICARE A/B [id number] 2011-Pres [address] Medicare GL ent [id number] [place] [address] (Work) Jovany Hi Personal/Family Self [address] (Home) [place] [address] (Work) Jovany Hi Personal/Family Self [address] (Home) [place] [address] (Work) Care Teams Lapping Machine Set Up Operator Relationship Specialty Start Date End Date Jennifer Gomez, PROJECT CONTROL OFFICER PCP - General 05/10/[address] [facility] [address] [place], [place] [phone]
--- OUTSIDE RECORDS SUMMARY | 2022-04-11 11:00 | XMS_ITS | Encounter Summary ---
:1945 Author Organization [facility] Address [address] [place] [address] Care Team Providers Name Role Phone Jennifer Gomez SAFETY INVESTIGATOR/CAUSE ANALYST Primary Care Provider Encounter Details Date Type Department Care Team Description 12/22/2019 Lab Requisition [facility] Outr Resulting Lab, Pathology & Laboratory Provider [facility] [address] [place], [place] [id number] Social History Tobacco Use Types Packs/Day Years Used Date Never Assessed Sex Assigned at Date Recorded Not on file documented as of this encounter Plan of Treatment Not on filedocumented as of this encounter Procedures Procedure Name Priority Date/Time Associated Diagnosis Comme nts COVID-19 TEST [facility] Today 12/22/2019 10:38 LAB PCR EDT COVID-19 TESTING Routine 12/22/2019 10:38 Results for this EDT procedure are i n the results section. documented in this encounter Results COVID-19 TEST [facility] LAB PCR (12/22/2019 10:38 EDT) Specimen Swab - Entire nasopharynx (body structur e) Performing Organization Address City/State/ZIP Code Phon e Number [facility] [address] [place] [address] SERVICES COVID-19 TESTING (12/22/2019 10:38 EDT) COVID-19 rt-PCR Negative Negative [facility] Result Comment: [facility]ENTER [facility]ORY Negative results do not prec lude 2019-nCoV infection and should not be used as the sole basis for treatment or other patient management decisions. Negative results must be combined with clinical observa SERVICES tions, patient history, and epidemiological informatio n. This test was developed and its performance characteristics determined by [facility]. It has not been cleared [...] by the FDA Performed on the [employer] 7500 Fast. Performing Lab AB [address] [facility] Lab [facility] SERVICES Specimen Swab Performing Organization Address City/State/ZIP Code Phon e Number [facility] [address] [place] [address] SERVICES documented in this encounter Visit Diagnoses Not on filedocumented in this encounter Care Teams Bilingual Secretary Relationship Specialty Start Date End Date Jennifer Gomez NP PCP - General 05/10/15 [facility] [address] [place], [place] [phone] documented as of this encounter
--- OUTSIDE RECORDS SUMMARY | 2022-04-11 11:00 | XMS_ITS | Encounter Summary ---
:1945 Author Organization [facility] Address [address] [place] [address] Care Team Providers Name Role Phone Jennifer Gomez DATA INTEGRITY CONSULTANT Primary Care Provider Encounter Details Date Type Department Care Team Description 02/07/2020 Lab Requisition [facility] Outr Resulting Lab, Pathology & Laboratory Provider [facility] [address] [place] [address] Social History Tobacco Use Types [...] (02/07/2020 7:59 EDT) COVID-19 rt-PCR NEGATIVE Negative [facility] Result Comment: LABORATORY 2019-novel [...] City/State/ZIP Code Phon e Number [facility] [place], [place] COVID-19 TESTING (02/07/2020 7:59 EDT) COVID-19 rt-PCR NEGATIVE Negative [facility] Result Comment: LABORATORY 2019-novel [...] Administration's Emergency Use Authorization. Performing Lab [facility] LABORATORY SERVICES Specimen Swab Performing Organization Address City/State/ZIP Code Phon e Number [facility] [address] [place] [address] SERVICES [facility] [place], [place] documented in this encounter Visit Diagnoses Not on filedocumented in this encounter Care Teams Chief Console Operator Relationship Specialty Start Date End Date Jennifer Gomez NP PCP - General 05/10/15 [facility] [address] [place], [place] [address] documented as of this encounter
--- OUTSIDE RECORDS SUMMARY | 2022-04-11 11:00 | XMS_ITS | Encounter Summary ---
:1945 Author Organization [facility] Address [address] [place] [address] Care Team Providers Name Role Phone Unavailable Primary Care Provider Unavailable Encounter Details Date Type Department Care Team Description 09/15/2003 Results Only [facility] - Otis Patel MD conversion [address] [facility] [address] [place] [address] [place] [address] (Wo rk) Social History Tobacco Use Types [...] ANGEL LUIS SALINAS ? Accession #: ? [id number] ? : ? 1945 (Age: 58) ??M ? Collect Date: ? 09/15/2003 ? Location: ? [facility] ? Receive Date: ? 004 ? Provider: OTIS MOSS MD Copy to: MALCOM MCGEE NURSING INFORMATICS CLINICAL ANALYST ? Final Pathologic Diagnosis: ? Skin of [...] City/State/ZIP Code Phon e Number [facility] [address] [place] [address] SERVICES [facility] [address] [place] [address] documented in this encounter Visit Diagnoses Not on filedocumented in this encounter
--- OUTSIDE RECORDS SUMMARY | 2022-04-11 11:00 | XMS_ITS | Encounter Summary ---
:1945 Author Organization [facility] Address [address] [place] [address] Care Team Providers Name Role Phone Jennifer Gomez DIRECTOR OF MANUFACTURING Primary Care Provider Encounter Details Date Type Department Care Team Description 01/25/2022 Lab Requisition [facility] Outr Resulting Lab, Pathology & Laboratory Provider [facility] [address] [place], [place] [address] Social History Tobacco Use Types Packs/Day Years [...] Pathologist Sig nature Salmonella PCR Negative Negative [facility] SERVICES Shigella/Enteroinvasive Negative Negative [facility] HN LAB CAMPYLOBACTER PCR Negative Negative [facility] SERVICES Shiga Toxin PCR Negative Negative [facility] SERVICES Specimen Feces - Specimen from rectum (specimen) Performing Organization Address City/State/ZIP Code Phon e Number [facility] [address] [place] [address] SERVICES documented in this encounter Visit Diagnoses Not on filedocumented in this encounter Care Teams Brake Lining Finisher Relationship Specialty Start Date End Date Jennifer Gomez, DIRECTOR OF MANUFACTURING PCP - General 05/10/15 [facility] [address] [place], [place] [phone] documented as of this encounter
--- OUTSIDE RECORDS SUMMARY | 2022-04-11 11:00 | XMS_ITS | Encounter Summary ---
:1945 Author Organization [facility] Address [address] [place] [address] Care Team Providers Name Role Phone Jennifer Gomez EMPLOYEE COMMUNICATIONS SPECIALIST Primary Care Provider Encounter Details Date Type Department Care Team Description 03/19/2019 Results Only [facility] Angel Luis Lott MD [phone] [address] [place], [place] [phone] (Wo rk) Social History Tobacco Use Types [...] (03/19/2019 16:47 EDT) Pathology SURGICAL PATHOLOGY REPORT [facility]ICAL Report: Reports generated via electronic interface conta in original data; [facility]ENTER [facility]ORY however they are lacking the format of the original re port. SERVICES Caution should be taken when reading/interpreting unfo rmatted reports. Name: ? ANGEL LUIS HI ? Accession #: ? [id number] ? : ? 1945 (Age: 8 3) [...] Organization Address City/State/ZIP Code Phon e Number [facility] [address] [place] [address] SERVICES documented in this encounter Visit Diagnoses Not on filedocumented in this encounter Care Teams Product Ambassador Relationship Specialty Start Date End Date Jennifer Gomez NP PCP - General 05/10/15 [facility] [address] [place], [place] [phone] documented as of this encounter
--- OUTSIDE RECORDS SUMMARY | 2022-04-11 11:00 | XMS_ITS | Encounter Summary ---
:1945 Author Organization [facility] Address [address] [place] [address] Care Team Providers Name Role Phone Unavailable Primary Care Provider Unavailable Encounter Details Date Type Department Care Team Description 09/02/2003 Results Only [facility] - Otis Patel MD conversion [address] [facility] [address] [place] [address] [place] [address] (Wo rk) Social History Tobacco Use Types [...] ANGEL LUIS SALINAS ? Accession #: ? [id number] ? : ? 1945 (Age: 58) ??M [...] of the lesion is recommended. ?? (Dr. Mascorro)/[facility] Microscopic Description: ? The epidermis is hype [...] and cords of similar melanocytes that show project control manager maturation with descent. ??There is papillary dermal fibroplasia. ??(Dr. Mascorro)/[facility] Document reviewed and electronically signed by: Mai [...] one cassette. ??(Dr Stephany Amador)/[facility] End of Report Specimen Performing Organization Address City/State/ZIP Code Phon e Number [facility] [address] [place] [address] SERVICES [facility] [address] [place] [address] documented in this encounter Visit Diagnoses Not on filedocumented in this encounter
--- OUTSIDE RECORDS SUMMARY | 2022-04-11 11:00 | XMS_ITS | Encounter Summary ---
:1945 Author Organization [facility] Address [address] [place] [address] Care Team Providers Name Role Phone Jennifer Gomez ENERGY TECHNICIAN Primary Care Provider Encounter Details Date Type Department Care Team Description 09/07/2020 Lab Re[address] [facility] Outr Resulting Lab, Pathology & Laboratory Provider [facility] [address] [place], [place] [address] Social History Tobacco Use Types Packs/Day Years Used Date Never Assessed Sex Assigned at Date Recorded Not on file documented as of this encounter Plan of Treatment Not on filedocumented as of this encounter Procedures Procedure Name Priority Date/Time Associated Diagnosis Comme nts COVID-19 TEST [facility] Today 09/07/2020 9:45 EST LAB PCR COVID-19 TESTING Routine 09/07/2020 9:45 EST Resu lts for this procedure are i n the results section. documented in this encounter Results COVID-19 TEST [facility] LAB PCR (09/07/2020 9:45 EST) Specimen Swab - Entire nasopharynx (body structur e) Performing Organization Address City/State/ZIP Code Phon e Number [facility] [address] [place] [address] SERVICES COVID-19 TESTING (09/07/2020 9:45 EST) COVID-19 rt-PCR Negative Negative [facility] Result Comment: CENTER LABORATORY This [...] developed and its performance characteristics determined by [facility]. It has not been cleared or approved [...] defined by the FDA Performed on the [employer] 7 Pro RT-PCR System. Performing Lab [facility] Lab [facility] SERVICES Specimen Swab Performing Organization Address City/State/ZIP Code Phon e Number [facility] [address] [place] [address] SERVICES documented in this encounter Visit Diagnoses Not on filedocumented in this encounter Care Teams Accounts Payable Clerk Relationship Specialty Start Date End Date Jennifer Gomez NP PCP - General 05/10/15 [facility] [address] [place], [place] [address] documented as of this encounter
--- OUTSIDE RECORDS SUMMARY | 2022-04-11 11:00 | XMS_ITS | Encounter Summary ---
:1945 Author Organization [facility] Address [address] [place] [address] Care Team Providers Name Role Phone Jennifer Gomez HEEL CUTTER Primary Care Provider Encounter Details Date Type Department Care Team Description 08/26/2021 Lab Requisition [facility] Najma Valladares for other Pathology & M, DO general examination Laboratory Medicine - [address] [place] [phone] Social History Tobacco Use Types Packs/Day Years [...] 8:45 EST) Note to Patient The following [facility] pathology results have CENTER been interpreted by your LABORATORY pathologist and may be SERVICES available to you before your health provider has had the opportunity to review them. Please allow time for your provider to receive these results and explore management options, if applicable. Final Diagnosis A. RECTUM, POLYP, BIOPSY : [facility] - Polypoid submucosal anal glands. CENTER - Overlying rectal mucosa negative for dysplasia. LABORATORY - See comment. SERVICES Diagnosis Comment This rectal polyp shows a cantor bmucosal collection of anal duct glands causing a polypoid configuration. The morphology and the immunohistochemical profile are consistent with a benign (non-neoplastic) pro [facility] cess. Box Car Washer slides of this case were reviewed at the gastrointestinal/liver intradepartmental consultation conference. CENTER LABORATORY ANTIBODY(CLONE)(BLOCK):RESULT SERVICES CK7 (RN7, Leica) (A1): Strongly positive PAX-8 (MRQ-50, Cuartelez) (A1): Negative NKX3.1 (Rabbit Polyclonal, Biocare) (A1): Negative GATA3 (L50-823, Cuartelez) (A1): Negative NOTE: One or more of [...] characteristics have been de termined by [facility] and/or by the referring laboratory. The [...] laboratory testing. Attestation By the signature below, [facility] Elec tronically the attending physician CENTER sign ed by Odalis, certifies that they have LABORATORY Tami MD edna on 1) personally conducted SERVICES 2021 at 1309 a gross and/or microscopic examination of the described specimen(s), and/or personally interpreted the results of laboratory testing of the described specimen(s), and 2) personally rendered or confirmed the above diagnosis. Clinical History Flex sigmoidoscopy; [facility] diverticulosis, polyp CENTER LABORATORY SERVICES Gross Description A. [facility] Received in formalin mark d with proper patient identification (initials M, J) and rectal polyp is a marr-brown polyp, 0.6 x 0.5 x 0.4 cm. Bisected and entirely submitted in A1. CENTER LABORATORY ESTEFANY NICHOLS(ASCP) 08/26/2021 16:41 SE RVICES Performing Lab [facility] LAB [facility] Scanned Images [facility] Specimen Tissue - Specimen from rectum (specimen) Performing Organization Address City/State/ZIP Code Phon e Number [facility] [address] [place] [address] SERVICES documented in this encounter Visit Diagnoses Diagnosis Encounter for other general examination documented in this encounter Care Teams Street Roller Engineer Relationship Specialty Start Date End Date Jennifer Gomez NP PCP - General 05/10/15 [facility] [address] [place] [address] documented as of this encounter
--- OUTSIDE RECORDS SUMMARY | 2022-04-11 11:01 | XMS_ITS | Clinical Summary ---
:1945 Author Organization [facility] [place] [address] Care Team Providers Name Role Phone Jovany Lott MD Primary Care Provider Allergies Active Allergy Reactions Severity Noted Date Comments Penicillins 05/13/2013 Pt doesn't gely mber reaction Gphuoao-Ngs-Duk Reductase 05/13/2013 St iff neck, upset stomach, [...] Date Last Done Comments Covid-19 Vaccine (#1) 1945 Pneumoccocal Vaccine: 65+ (1 - PCV) 01/21/1952 [...] Address City/State/ZIP Code Phon e Number RAD [place], [place] from Last 3 Months Insurance Payer Benefit Plan / Subscriber ID Effective Dates Phone Addre ss Type Group MEDICARE MEDICARE PART [id number] 2019-Prese [phone] [place] [id number] [place] [id number] 2018-Presen [employer] [place] [id number] Advance Directives Latest Code Status on File [...] capacity to make decision: Yes Care Teams Certified Dialysis Technician Relationship Specialty Start Date End Date Jovany Lott MD PCP - General Family Medicine 02/05/20 [address] [place] [id number]
--- OUTSIDE RECORDS SUMMARY | 2022-04-11 11:01 | XMS_ITS | Encounter Summary ---
:1945 Author Organization [facility] [place] [address] Care Team Providers Name Role Phone France Lam MD Primary Care Provider Reason for Visit Reason Onset Date Comments TeleHealth 12/22/2019 Appt 12/23/19 Encounter Details Date Type Department Care Team Description 12/22/2019 Telephone Neurosurgery at [facility] Alfreda Salas TeleHealth (Appt [facility] Devin Sebastian, SOLAR PANEL INSTALLATION SUPERVISOR 12/23/19) [place] [address] [place] [address] [place] [address] Social History Tobacco Use Types [...] on filedocumented in this encounter Care Teams Trimmer Sorter Relationship Specialty Start Date End Date France Lam MD PCP - General 05/02/13 02/04/20 [address] [place] [address] documented as of this encounter
--- OUTSIDE RECORDS SUMMARY | 2022-04-11 11:01 | XMS_ITS | Encounter Summary ---
:1945 Author Organization [facility] [place] [address] Care Team Providers Name Role Phone Jovany Lott MD Primary Care Provider Encounter Details Date Type Department Care Team Description 10/12/2020 Notes Only Cardiology at [facility] Willow Callejas, NIURKA [facility] [address] Social History Tobacco Use Types Packs/Day [...] want totalk to my doctor at the [place] and do a little more research before I decide what to do, I'm a little afraid of it. He notes that he has a scheduled clinic visit in November and will discuss with Dr. Garduno at that time. documented in this encounter Plan of Treatment Not on filedocumented as of this encounter Visit Diagnoses Not on filedocumented in this encounter Care Teams Ampoule Filler And Sealer Relationship Specialty Start Date End Date Jovany Lott MD PCP - General Family Medicine 02/05/20 [place] [phone] documented as of this encounter
--- OUTSIDE RECORDS SUMMARY | 2022-04-11 11:01 | XMS_ITS | Encounter Summary ---
:1945 Author Organization [facility] [place] [address] Care Team Providers Name Role Phone Jovany Lott MD Primary Care Provider Reason for Visit Reason Onset Date Comments Follow-up 06/15/2020 Tobacco Treatment Encounter Details Date Type Department Care Team Description 06/15/2020 Telephone Vascular Surgery at Ryan Tran-melvin (Tobacco [facility] uSkumar, RN Treatment) [place] [address] Social History Tobacco Use Types Packs/Day [...] updated. Ryan Tran, MSN, RN-BC, NCTTP Tobacco Aeronautical Research Engineer [facility] Pager #[phone] documented in this encounter Plan of Treatment Not on filedocumented as of this encounter Visit Diagnoses Not on filedocumented in this encounter Care Teams Funeral Car Driver Relationship Specialty Start Date End Date Jovany Lott MD PCP - General Family Medicine 02/05/20 [place] [address] documented as of this encounter
--- OUTSIDE RECORDS SUMMARY | 2022-04-11 11:01 | XMS_ITS | Encounter Summary ---
:1945 Author Organization [facility] Address [address] [place] [address] Care Team Providers Name Role Phone France Lam MD Primary Care Provider Encounter Details Date Type Department Care Team Description 12/30/2019 TH Visit Cardiology at [facility] Faustino Garduno Claudication from peripheral vascular disease, left ; (TeleHealth) [facility] MD Jaquan Hyperlipidemia, unspecified hyperlipidem ia type; Drive [facility] Acute ST elevation myocardia l infarction (STEMI) of inferior wall; [place], [place] Center Acute systolic CHF (congestive heart reid lure), NYHA class 3, MILVIA/AHA stage C; [address] [place], [place] Intracranial hemorrhage; [phone] Atrial fibrillation, unspecified type Social History Tobacco [...] with ICH, bilateral PE; paroxysmal atrial fibrillation [[id number]: 5]; PAD; HLD; HTN; smoking and PFO,who [...] a non-culprit artery. S/P DESx3 in the bvdyjjmo-ou-mzgqrl RCA. Aspiration thrombectomy performed, and integrellin bolus [...] with ICH, bilateral PE; paroxysmal atrial fibrillation [[id number]: 5]; PAD; HLD; HTN; smoking and PFO, who presents for post-discharge cardiovascular follow-up. CV issues are currently stable. Plan 1. CAD - CCS Class 0. Recovering well. He has completed 1 month of triple therapy. He may stop his aspirin, and resume clopidogrel and apixaban. Starting cardiac rehab. He wishes to pursue PCSK9 referral via the [place] system. 2. Afib - CHADS2-vasc 5, presently [...] 6 months Faustino Garduno MD Time spent: [id number] 0-5min 5810WCM1 6-10min [id number] 11-15min 7386VYE7 16-20min XXXX [id number] 21-30min 8584MOX4 31-40min 7320LST7 40+ min documented in this encounter Plan [...] type documented in this encounter Care Teams Pinion Sorter Relationship Specialty Start Date End Date France Lam MD PCP - General 05/02/13 02/04/20 [address] [place] [address] documented as of this encounter
--- OUTSIDE RECORDS SUMMARY | 2022-04-11 11:01 | XMS_ITS | Encounter Summary ---
:1945 Author Organization [facility] Address [facility] [address] [place] [address] Care Team Providers Name Role Phone France Lam MD Primary Care Provider Reason for Visit Reason Onset Date Comments TeleHealth 01/08/2020 Appt 01/09/20 Encounter Details Date Type Department Care Team Description 01/08/2020 Telephone [place]rology at [facility] Efrain Nicole PA TeleHealth (Appt [facility] 12/30 ) [place] [address] NEUROLOGY [phone] [place], [place] [address] (Wo rk) Social History Tobacco [...] filedocumented in this encounter Care Teams Supervisor Inventory Merchandising Relationship Specialty Start Date End Date France Lam MD PCP - General 05/02/13 02/04/20 [address] [place] [address] documented as of this encounter
--- OUTSIDE RECORDS SUMMARY | 2022-04-11 11:01 | XMS_ITS | Encounter Summary ---
:1945 Author Organization [facility] [place] [address] Care Team Providers Name Role Phone France Lam MD Primary Care Provider Encounter Details Date Type Department Care Team Description 01/09/2020 TH Visit Neurology at [facility] Efrain Nicole, Intracranial hemorrhage; (TeleHealth) [facility] ESTEFANY Tobacco abuse; [facility] Cerebrovascular accident (CV A) due to embolism of right posterior cerebral artery [facility] [phone] NEUROLOGY [phone] [place] [address] Social History Tobacco Use Types Packs/Day Years Used Date Current Every Day Smoker Cigars 0.5 Sex Assigned at Date Recorded Not on file documented as of this encounter Progress Notes Efrain Nicole PA - 01/09/2020 9:00 AM EDT [facility] [place] [address] t: [phone] / f: [phone] TELEPHONE ENCOUNTER Date of Appointment: 01/09/2020 I [...] cardiology - had f/u head CT at [facility] which was stable with resolving known hemorrhage - has not resumed smoking -has been in touch with Dr. Sanchez for Watchman, deferred for duration of anticoagulation for PE Modified Corydon Scale (MRS) 0: No symptoms at all [...] -advised vision/eye exam with his local provider ([facility]); consider referral to neuro-ophthalmology here in [...] artery documented in this encounter Care Teams Mapping Technician Relationship Specialty Start Date End Date France Lam MD PCP - General 05/02/13 02/04/20 [address] [place] [address] documented as of this encounter
--- OUTSIDE RECORDS SUMMARY | 2022-04-11 11:01 | XMS_ITS | Encounter Summary ---
:1945 Author Organization [facility] [place] [address] Care Team Providers Name Role Phone Jovany Lott MD Primary Care Provider Encounter Details Date Type Department Care Team Description 11/10/2020 Telephone Cardiology at [facility] [place] [address] Social History Tobacco Use Types Packs/Day [...] on filedocumented in this encounter Care Teams Temporary Staff Accountant Relationship Specialty Start Date End Date Jovany Lott MD PCP - General Family Medicine 02/05/20 [place] [address] documented as of this encounter
--- OUTSIDE RECORDS SUMMARY | 2022-04-11 11:01 | XMS_ITS | Encounter Summary ---
:1945 Author Organization [facility] Address [address] [place] [address] Care Team Providers Name Role Phone France Lam MD Primary Care Provider Encounter Details Date Type Department Care Team Description 12/26/2019 TH Visit Cardiology at [facility] Merlin Sanchez V, Claudication from peripheral vascular disease, left ; (TeleHealth) [facility] Hyperlipidemia, unspecified hyperlipidem ia type; Drive [facility] Acute ST elevation myocardia l infarction (STEMI) of inferior wall; [place], [place] CENTER Acute systolic CHF (congestive heart reid lure), NYHA class 3, MILVIA/AHA stage C [address] [address]PT[address] [phone] [place] [address] Social History Tobacco Use Types Packs/Day Years [...] best is to differ this conversation until long term OAC strategy has been set. Specifically, if this is being treated as a provoked dvt/pe, then would re-evaluate to coordinated with OAC discontinuation. I discussed the above findings with the patient and his both of whom appear to understand and is in agreement with the plan going forward. Merlin Sanchez M.D., F.A.C.C. animal behaviorist Pager [phone] >50% of the 15 minute [...] failure documented in this encounter Care Teams Publication Designer Relationship Specialty Start Date End Date France Lam MD PCP - General 05/02/13 02/04/20 [address] [place] [address] documented as of this encounter
--- OUTSIDE RECORDS SUMMARY | 2022-04-11 11:01 | XMS_ITS | Encounter Summary ---
:1945 Author Organization [facility] Address [facility] [place] [address] Care Team Providers Name Role Phone France Lam MD Primary Care Provider Encounter Details Date Type Department Care Team Description 12/22/2019 Telephone Cardiology Riki Stevens, [facility] [place] [address] [facility] [phone] GENERAL INTERNAL MEDICINE [place] [id number] (Wo rk) Social History Tobacco Use Types [...] on filedocumented in this encounter Care Teams Forestry Extension Specialist Relationship Specialty Start Date End Date France Lam MD PCP - General 05/02/13 02/04/20 [address] [place] [address] documented as of this encounter
--- OUTSIDE RECORDS SUMMARY | 2022-04-11 11:01 | XMS_ITS | Encounter Summary ---
:1945 Author Organization [facility] [place] [address] Care Team Providers Name Role Phone Jovany Lott MD Primary Care Provider Reason for Visit Consultation (Routine) - Closed Specialty Diagnoses / Procedures Referred By Contact Refer red To Contact Cardiology Diagnoses ST elevation (STEMI) myocardial infarction of unspecified site Hyperlipidemia, unspecified PeriDawit muhammad MD [place] [address] [place] [address] [address] [facility] [place] CARDIOLOGY D EPT [address] [place] [address] Fax: Referral ID Status Reason Start Date Expiration Date Visits V isits Requested Authorized [id number] Closed Consult, Test 02/10/2020 02/09/2021 [facility] PCP Updated and/or Approved Encounter Details Date Type Department Care Team Description 03/12/2020 TH Visit Cardiology at [facility] Melina Payan Fredrickson type IIa hyperli poproteinemia; (TeleHealth) [facility] Hyperglycemia; [facility] Elevated TSH; 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 They have [...] medications for this visit. Allergies Penicillins and Wnawofw-zee-nbp reductase inhibitors Physical Exam not performed telehealth Assessment Jovany is a very high risk 75-year-old man who suffered a STEMI complicated by A. fib, cardiogenic shock, and a CVA. He has multiple cardiovascular risk factors including peripheral artery disease, hyperlipidemia (elevated LDL, depressed HDL), a 96-rlgo-imfn history of smoking, and prediabetes. Jovany quit [...] but Jovany replied: I can't drive to [employer] every 2 weeks for that. I explained [...] hypothyroidism documented in this encounter Care Teams Condenser Tube Tender Relationship Specialty Start Date End Date Jovany Lott MD PCP - General Family Medicine 02/05/20 [place] [address] documented as of this encounter
--- OUTSIDE RECORDS SUMMARY | 2022-04-11 11:01 | XMS_ITS | Encounter Summary ---
:1945 [place] [address] Care Team Providers Name Role Phone France Lam MD Primary Care Provider Encounter Details Date Type Department Care Team Description 12/08/2019 Orders Only Neurosurgery at [facility] Natalia Delong, Intracranial [facility] [place] [address] Social History Tobacco Use Types Packs/Day Years Used Date Current Every Day Smoker Cigars 0.5 Sex Assigned at Date Recorded Not on file documented as of this encounter Plan of Treatment Not on filedocumented as of this encounter Visit Diagnoses Diagnosis Intracranial hemorrhage Unspecified intracranial hemorrhage documented in this encounter Care Teams Pool Lifeguard Relationship Specialty Start Date End Date France Lam MD PCP - General 05/02/13 02/04/20 [address] [place] [address] documented as of this encounter
--- OUTSIDE RECORDS SUMMARY | 2022-04-11 11:01 | XMS_ITS | Encounter Summary ---
:1945 Author Organization [facility] Address [address] [place] [address] Care Team Providers Name Role Phone Jovany Lott MD Primary Care Provider Encounter Details Date Type Department Care Team Description 03/10/2022 Ancillary Procedure Radiology Library at Jovany Lott MD [facility] [address] [facility] [address] [place] [address] [phone] Social History Tobacco Use Types Packs/Day Years [...] Organization Address City/State/ZIP Code Phon e Number [place], [place] documented in this encounter Visit Diagnoses Not on filedocumented in this encounter Care Teams Elevator Constructor Hydraulic Relationship Specialty Start Date End Date Jovany Lott MD PCP - General Family Medicine 02/05/20 [address] [place] [address] documented as of this encounter
--- OUTSIDE RECORDS SUMMARY | 2022-04-11 11:01 | XMS_ITS | Encounter Summary ---
:1945 Author Organization [facility] Address [place] [address] Care Team Providers Name Role Phone Jovany Lott MD Primary Care Provider Encounter Details Date Type Department Care Team Description 08/31/2020 TH Visit Cardiology at [facility] Faustino Garduno Atrial fibrillation, unspeci fied type (Primary Dx); (TeleHealth) [facility] MD Jaquan Acute ST elevation myocardial infarction (STEMI) of inferior wall; [facility] Acute systolic CHF (congesti ve heart failure), NYHA class 3, MILVIA/AHA stage C; [place], [place] Center Hyperlipidemia, unspecified hyperlipidem ia type; [address] [place], [place] Intracranial hemorrhage; [phone] [address] PFO (patent foramen ovale); [phone] Claudication fr om peripheral vascular disease, left [...] with ICH, bilateral PE; paroxysmal atrial fibrillation [[id number]: 5]; PAD; HLD; HTN; smoking and PFO,who [...] appointment with Dr. Faustino Chou at the [facility]. However, he has not grossly noted that [...] a non-culprit artery. S/P DESx3 in the bsczpkgf-gc-aecpdl RCA. Aspiration thrombectomy performed, and integrellin bolus [...] with ICH, bilateral PE; paroxysmal atrial fibrillation [[id number]: 5]; PAD; HLD; HTN; smoking and PFO, [...] Will also discuss further with his local clinical rehabilitation coordinator, Dr. Mejia. 3. Bilateral PE - Case discussed with Dr. Sanchez above; likely provoked in lieu of his prolonged hospitalization. He has completed at least 6 months of oral A/C (coinciding treatment for his afib). 4. PAD - Continue optimal medical therapy for now. Will place referral for SET/walking program. F/U 3 months Faustino Garduno MD Time spent: 35 minutes Addendum 09/13/20: Called [phone] or [phone] and was able to speak to Dr. Faustino Chou. Pt also sees Dr. Lott in [facility] for local primary care needs. Dr. Chou [...] unspecified documented in this encounter Care Teams Clinical Applications Manager Relationship Specialty Start Date End Date Jovany Lott MD PCP - General Family Medicine 02/05/20 [place] [address] documented as of this encounter
--- OUTSIDE RECORDS SUMMARY | 2022-04-11 11:01 | XMS_ITS | Encounter Summary ---
:1945 Author Organization [place] [address] Care Team Providers Name Role Phone France Lam MD Primary Care Provider Encounter Details Date Type Department Care Team Description 01/16/2020 Telephone Vascular Surgery at [facility] Ryan Tran, [place] [address] Social History Tobacco Use Types Packs/Day [...] fidelina. Ryan Tran, MSN, RN-BC, NCTTP Tobacco Silk Winding Machine Operator [facility] Pager #[phone] documented in this encounter Plan of Treatment Not on filedocumented as of this encounter Visit Diagnoses Not on filedocumented in this encounter Care Teams Reservation Sales Agent Relationship Specialty Start Date End Date France Lam MD PCP - General 05/02/13 02/04/20 [address] [place] [address] documented as of this encounter
--- OUTSIDE RECORDS SUMMARY | 2022-04-11 11:01 | XMS_ITS | Encounter Summary ---
:1945 Author Organization [facility] [place] [address] Care Team Providers Name Role Phone France Lam MD Primary Care Provider Encounter Details Date Type Department Care Team Description 12/23/2019 TH Visit Neurosurgery at [facility] Alfreda Salas Intracranial (TeleHealth) [facility] C, SENIOR COMMERCIAL LOAN [place] [address] Center [phone] [place] [address] Social History Tobacco Use Types Packs/Day Years Used Date Current Every Day Smoker Cigars 0.5 Sex Assigned at Date Recorded Not on file documented as of this encounter Progress Notes Alfreda Salas C, SENIOR COMMERCIAL LOAN OFFICER - 12/23/2019 1:30 PM EDT Images from [...] 2 [address] up head [address] at [facility], showing slight decrease in size and [...] 3-4 weeks which may be done at [facility] with follow up TOV [facility]. Head CT 12/18/19 Assessment and Plan [...] hemorrhage documented in this encounter Care Teams B And B Gang Worker Relationship Specialty Start Date End Date France Lam MD PCP - General 05/02/13 02/04/20 [address] [place] [address] documented as of this encounter
--- OUTSIDE RECORDS SUMMARY | 2022-04-11 11:01 | XMS_ITS | Encounter Summary ---
:1945 [place] [address] Care Team Providers Name Role Phone France Lam MD Primary Care Provider Encounter Details Date Type Department Care Team Description 12/29/2019 Ancillary Procedure Radiology Library at Ivette Salas [facility], Located [facility] [place] [address] [place] [address] [phone] (Wo rk) Social History Tobacco Use Types [...] It's purpo se is for storage only. Alfrdea Salas APRN [facility] FILM LIBRARY ORDERABLES Performing Organization Address City/State/ZIP Code Phon e Number [place], [place] documented in this encounter Visit Diagnoses Not on filedocumented in this encounter Care Teams Pneumatic Tester Relationship Specialty Start Date End Date France Lam MD PCP - General 05/02/13 02/04/20 [address] [place] [address] documented as of this encounter
--- OUTSIDE RECORDS SUMMARY | 2022-04-11 11:01 | XMS_ITS | Encounter Summary ---
:1945 Author Organization [facility] [place] [address] Care Team Providers Name Role Phone Jovany Lott MD Primary Care Provider Encounter Details Date Type Department Care Team Description 10/05/2020 Notes Only Cardiology Merlin Sanchez MD [facility] [place] [address] CARDIOLOGY DEPT. [phone] [place], [place] [address] (Wo rk) Social History Tobacco [...] BEKAH-C with [facility] Merlin Sanchez MD [facility] Pager 2020 documented in this encounter Plan of Treatment Not on filedocumented as of this encounter Visit Diagnoses Not on filedocumented in this encounter Care Teams Process Trainer Relationship Specialty Start Date End Date Jovany Lott MD PCP - General Family Medicine 8/6/20 [address] [place] [address] documented as of this encounter
--- OUTSIDE RECORDS SUMMARY | 2022-04-11 11:01 | XMS_ITS | Encounter Summary ---
:1945 Author Organization [facility] [place] [address] Care Team Providers Name Role Phone France Lam MD Primary Care Provider Encounter Details Date Type Department Care Team Description 12/08/2019 Telephone Neurosurgery at [facility] [place] [address] Social History Tobacco Use Types Packs/Day Years Used Date Current Every Day Smoker Cigars 0.5 Sex Assigned at Date Recorded Not on file documented as of this encounter Miscellaneous Notes Telephone Encounter - Elza Bradshaw - 12/22/2019 6:[address] in [facility] Telephone Encounter - Elza Bradshaw - 12/18/2019 3:43 PM EDT Left message at [facility] requesting they call back to advise if patient has been scheduled for CT. Telephone Encounter - Sarah Boucher - 12/08/2019 3:[address] order to [facility] to schedule, 12/16-12/18 for 12/22 TOV scheduled w/[facility] Telephone Encounter - Sarah Boucher - 12/08/2019 9:50 AM EDT RN, please put in CT order external=[facility] Pt's called not able to come to [facility] on 12/[address] to have CT locally at [facility] call w/results. documented in this encounter Plan of Treatment Not on filedocumented as of this encounter Visit Diagnoses Not on filedocumented in this encounter Care Teams Gear Milling Machine Set Up Operator Relationship Specialty Start Date End Date France Lam MD PCP - General 05/02/13 02/04/20 [address] [place] [address] documented as of this encounter
--- OUTSIDE RECORDS SUMMARY | 2022-04-11 11:02 | XMS_ITS | Encounter Summary ---
:1945 Author Organization [facility] [place] [address] Care Team Providers Name Role Phone France Lam MD Primary Care Provider Reason for Referral Consultation (Routine) - Specialty Diagnoses / Procedures Referred By Contact Refer red To Contact Cardiology Diagnoses Acute ST elevation myocardial infarction (STEMI) of inferior wall Darrell Glasgow MD [facility] [place] [address] Referral ID Status Reason Start Date Expiration Date Visits V isits Requested Authorized [id number] Consult, 12/08/2019 06/05/2020 1 1 Test & Treat Consultation (Routine) - Closed Specialty Diagnoses / Referred By Contact Referred To Contact Procedures Cardiac Rehabilitation Diagnoses ST elevation myocardial infarction involving right coronary artery Gretchen Yoon, Cardiac Rehab, [address] [place] [address] Fax: Referral ID Status Reason Start Date Expiration Date Visits V isits Requested Authorized [id number] Closed Consult, 12/08/2019 06/05/2020 36 36 Test & Treat Reason for Visit Auth/Cert Specialty Diagnoses / Procedures Referred By Contact Refer red To Contact Diagnoses STEMI (ST elevation myocardial infarction) STEMI Procedures CARDIAC CATHETERIZATION Referral ID Status Reason Start Date Expiration Date Visits Requ ested Visits Authorized [id number] 1 1 Encounter Details Date Type Department Care Team Description 11/29/2019 - Hospital Encounter Cardiac Special YoungBarbra MD [facility] [place] [address] ST elevation myocardial infarction invol ving left main coronary artery; 12/08/2019 Care Unit Paris Lozano MD [facility] [place] [address] ST elevation myocardial infarction invol ving right coronary artery; [facility] Edema of upper extremity; Hospital Intracranial hemorrhage; [facility] Paroxysma l atrial fibrillation; Drive Acute pulmonary embolism, un specified pulmonary embolism type, unspecified whether acute cor pulmonale present; [place], [place] Acute ST elevat ion myocardial infarction (STEMI) of inferior wall [id number] Social History Tobacco Use Types Packs/Day Years [...] Luis Salinas Patient Age: 74 y.o. Language: [place] Race: White Ethnicity: Not nor Admit date: [...] months on: antiplatelet therapy at discretion of patient access director - Repeat TTE in 3 months to reassess LV function - Repeat BMP in 1-2 weeks given recent start lisinopril - Referred to lipid clinic for consideration of PCSK-9 inhibitor given STEMI with intolerance of statins - Started on amiodarone this admission for recurrent rapid atrial flutter with rates ~170, recommendcontinued assessment of necessity of rhythm control strategy with patient access director - Amiodarone monitoring recommendations as below - [...] please contact your inpatient physician through the [facility] Carpenter/Labor . Issues after hours and on weekends [...] took two full strength aspirinand came to [facility] ED. At there was found to [...] and Compazine. He was transferred directly to [facility] via [facility] for further management. Patient had an emergent PCI with 3 MACARIO stents placed to his RCA, with mild disease of LCX (report pending) at [facility]. He was found to be persistently hypotensive requiring Levo up to 10mcg/min. He was transferred to [facility] after the cath procedure. Bedside RHC showed CI 2.12, PAWP 11, PAP 38/15 indicating hypovolemic state. He received 1L bolus of NS with improvement of his blood pressure to 124/61. History of PAD, HLD - had side reactions to statins - so taking niacin and red rye grain. Chronic active smoker with more than 65 pack years. Family history of [place] in father and two uncles. He's takingbaby [...] drip as described above. On arrival at [facility] he was taken for cardiac cath where [...] number below. Electronically signed by: Estefani Harris [facility] ([phone]), at 11/29/2019 4:[address] Head wo Contrast (Generic) (Exam End: 11/30/2019 10:41 AM) Impression Focal hemorrhage with small amount of adjacent edema projecting in the region of the left optic tract. Thank you for letting us participate in the care of this patient. For questions regarding this report, please contact the number below. Electronically signed by: [facility] ([phone]), at 11/30/2019 12:[address] Head wo [...] below. Electronically signed by: [facility] ([phone]), at 11/30/2019 5:[address] Angiogram [place] (Exam End: 11/30/2019 4:36 PM) Impression Head CT: Stable hemorrhage in the region of the left optic tract. CTA: Negative exam. No abnormal vasculature in the area of hemorrhage. Thank you for letting us participate in the care of this patient. For questions regarding this report, please contact the number below. Electronically signed by: Angel Luis Barboza MD, [facility] ([phone]), at 11/30/2019 5:04 PM MRI Brain wo [...] Electronically signed by: Angel Luis Barboza MD, [facility] ([phone]), at 12/01/2019 8:02 PM XR Chest One [...] number below. Electronically signed by: Merari Collins [facility] ([phone]), at 12/01/2019 3:53 PM XR Chest One [...] number below. Electronically signed by: Roselyn Luciano [facility] ([phone]), at 12/04/2019 6:16 PM MRI Brain wwo Contrast (Generic) (Exam End: 12/05/2019 7:59 PM) Impression No significant interval change. Thank you for letting us participate in the care of this patient. For questions regarding this report, please contact the number below. Electronically signed by: Merari Collins [facility] ([phone]), at 12/05/2019 10:[address] Head wo [...] number below. Electronically signed by: Merari Collins [facility] ([phone]), at 12/06/2019 10:06 PM Pending Studies and Lab Data: N/A Discharge Conditions/Prognosis: stable Discharge to: home Updated Allergies/ADRs: Allergies Allergen Reactions ??? Penicillins Pt doesn't remember reaction ??? Wsttqly-Saz-Qjm Reductase Inhibitors Stiff neck, upset stomach, back [...] medications at another hospital and then at [facility] you had a stent placed in a [...] FOR ONE MONTH AND THEN STOP. Your patient access director may tell you to start this medication again after one year. Clopidogrel (Plavix) 75 mg daily - This medication will help prevent clots from forming in your blood, which will help protect the stent that was placed in your heart vessel. TAKE THIS FOR ONE YEAR ANDTHEN DISCUSS WITH YOUR HAND BASEBALL SEWER WHETHER TO STOP. Amiodarone 400mg twice daily [...] follow up: Your primary care provider and patient access director will manage your blood thinner (apixaban). You do not need lab monitoring of this medication. Diet: Please consume a healthy diet low in cholesterol Follow up Appointments: 12/10/2019 at 3:10PM with PCP Angel Luis Lott Future Appointments Date Time Provider Department Center 12/23/2019 1:30 PM Alfreda Salas APRN [address] 12/26/2019 9:40 AM Merlin Sanchez MD [facility] CARD 4A [facility] 12/30/2019 3:40 PM Gretchen Yoon MD [facility] 4A [facility] Future Appointments and Orders Future Appointments and Orders Future Appointments Provider Department Dept Phone 12/23/2019 1:30 PM Alfreda Salas APRN Neurosurgery at [facility] Arrive at: Home [phone] Please do not come in for this visit. Your provider will call you at the number you provided. 12/26/2019 9:40 AM Merlin Sanchez MD Cardiology at [facility] Arrive at: Home [phone] Please do not come in for this visit. Your provider will call you at the number you provided. 12/30/2019 3:40 PM Gretchen Yoon MD Cardiology at [facility] Arrive at: Home [phone] Please do not come in for this visit. Your provider will call you at the number you provided. Future Orders Complete By Expires Referral to Cardiac Rehab [[id number] Custom] As directed Process Instructions: If no progress note charted, please enter Clinical details in comments. Scheduling Instructions: Questions: My question or request is: STEMI. Cardiac rehab at [facility] Referral to [facility] [REF43 Custom] As directed Process Instructions: If no progress note charted, please enter Clinical details in comments. Scheduling Instructions: Questions: My question or request is: patient with inferior stemi with history of statin allergy (rash) - please evaluate for psck9 inhibitor. Referral to Home Health - at DISCHARGE [COU0977 CPT(R)] As directed Process Instructions: Scheduling Instructions: Comments: DOCUMENTATION FOR VNA SERVICES PATIENT'S LOCATION: [address] [phone] (home) Chicken Buyer's Name: Self In discussion with the attending physician, it is certified that this patient is under his/her care and that MD, or an NAVAL GUNFIRE SPOTTER, PAPER FINAL INSPECTOR, or PA who is working directly with him/her, had a htao-ew-ghvl encounter that meets the physician wpfb-ui-aaer encounter requirements with this patient on 12/07/2019. [...] for managing ADLs. HOME HEALTH CARE AGENCY: [facility], PHONE: [phone] FAX: [phone] Start of care: 24-48 hours after hospital [...] MD [address] / [place] [address] All A agencies which cover the area of patient's residence have been reviewed, either verbally or in writing, and patient/family have chosen the home health care agency noted. Questions: Agency name and contact information: [facility] Patient location post discharge: Home What services are requested: Registered Nurse Physical Therapy Occupational Therapy Start date: Responsible MD post discharge contact info: PCP Your PCP: France Lam MD [phone] For questions regarding this document or issues relating to this hospitalization on the Cardiology Service, please contact your inpatient physician through the [facility] Carpenter/Labor . Issues after hours and on weekends will be handled by the Senior Principal Architect on-call. Patient Instructions: Neurology Your Diagnosis: Left [...] the neurology clinic at [facility]. See below for the appointment time. [...] 1:30 PM Alfreda Salas APRN Neurosurgery at [facility] Arrive at: Home [phone] Please do not come in for this visit. Your provider will call you at the number you provided. 12/26/2019 9:40 AM Merlin Sanchez MD Cardiology at [facility] Arrive at: Home [phone] Please do not come in for this visit. Your provider will call you at the number you provided. 12/30/2019 3:40 PM Gretchen Yoon MD Cardiology at [facility] Arrive at: Home [phone] Please do not come in for this visit. Your provider will call you at the number you provided. Future Orders Complete By Expires Referral to Cardiac Rehab [JCN413 Custom] As directed Process Instructions: If no progress note charted, please enter Clinical details in comments. Scheduling Instructions: Questions: My question or request is: STEMI. Cardiac rehab at [facility] Referral to [facility] [REF43 Custom] As directed Process Instructions: If no progress note charted, please enter Clinical details in comments. Scheduling Instructions: Questions: My question or request is: patient with inferior stemi with history of statin allergy (rash) - please evaluate for psck9 inhibitor. Referral to Home Health - at DISCHARGE [UDT9959 CPT(R)] As directed Process Instructions: Scheduling Instructions: Comments: DOCUMENTATION FOR VNA SERVICES PATIENT'S LOCATION: [address] [phone] (home) Chicken Buyer's Name: Self In discussion with the attending physician, it is certified that this patient is under his/her care and that MD, or an NAVAL GUNFIRE SPOTTER, PAPER FINAL INSPECTOR, or PA who is working directly with him/her, had a chvy-nv-tcor encounter that meets the physician wahv-rd-zrcw encounter requirements with this patient on 12/07/2019. [...] for managing ADLs. HOME HEALTH CARE AGENCY: [facility], PHONE: [phone] FAX: [phone] Start of care: 24-48 hours after hospital [...] France Lam MD [address] / [facility] [address] All A agencies which cover the area of patient's residence have been reviewed, either verbally or in writing, and patient/family have chosen the home health care agency noted. Questions: Agency name and contact information: [facility] Patient location post discharge: Home What services are requested: Registered Nurse Physical Therapy Occupational Therapy Start date: Responsible MD post discharge contact info: PCP Discharge References/Attachments Atrial Fibrillation ([place]) Cardiac Rehabilitation ([place]) Heart Failure ([place]) Heart Failure: Limiting Sodium ([place]) Hemorrhagic Stroke: General Info ([place]) Smoking: Stopping ([place]) Stroke Rehabilitation: General Info ([place]) Pulmonary Embolism ([place]) Riki Stevens MD PGY-3, Internal Medicine Cardiology S2, #[id number] Associated attestation - Paris Dodd MD - 12/09/2019 4:44 PM EDT Cardiology Attending Discharge Addendum I was the assigned attending patient access director for this clinical encounter. For the purposes [...] complications include novel onset, paroxysmal atrial fibrillation [[id number]: 5] & L-sided diplopia with potential hemineglect [...] My contact information: Paris Matt MD MPH [place] [phone] (office); Pager #[phone] Email: [email or web address] documented in this encounter Discharge Instructions Patient InstructionsFiRiki de jesus MD - 12/02/2019 9:56 AM EDT Images from the original note were not included. Why you were hospitalized: You had a heart attack. You received clot-busting medications at another hospital and then at [facility] you had a stent placed in a [...] FOR ONE MONTH AND THEN STOP. Your patient access director may tell you to start this medication again after one year. Clopidogrel (Plavix) 75 mg daily - This medication will help prevent clots from forming in your blood, which will help protect the stent that was placed in your heart vessel. TAKE THIS FOR ONE YEAR ANDTHEN DISCUSS WITH YOUR HAND BASEBALL SEWER WHETHER TO STOP. Amiodarone 400mg twice daily [...] follow up: Your primary care provider and patient access director will manage your blood thinner (apixaban). You do not need lab monitoring of this medication. Diet: Please consume a healthy diet low in cholesterol Follow up Appointments: 12/10/2019 at 3:10PM with PCP Angel Luis Lott Future Appointments Date Time Provider Department Center 12/23/2019 1:30 PM Alfreda Salas APRN [facility] [id number] [facility] 12/26/2019 9:40 AM Merlin Sanchez MD [facility] CARD 4A [facility] 12/30/2019 3:40 PM Gretchen Yoon MD [facility] CARD 4A [facility] Future Appointments and Orders Future Appointments and Orders Future Appointments Provider Department Dept Phone 12/23/2019 1:30 PM Alfreda Salas APRN Neurosurgery at [facility] Arrive at: Home [phone] Please do not come in for this visit. Your provider will call you at the number you provided. 12/26/2019 9:40 AM Merlin Sanchez MD Cardiology at [facility] Arrive at: Home [phone] Please do not come in for this visit. Your provider will call you at the number you provided. 12/30/2019 3:40 PM Gretchen Yoon MD Cardiology at [facility] Arrive at: Home [phone] Please do not come in for this visit. Your provider will call you at the number you provided. Future Orders Complete By Expires Referral to Cardiac Rehab [FCS315 Custom] As directed Process Instructions: If no progress note charted, please enter Clinical details in comments. Scheduling Instructions: Questions: My question or request is: STEMI. Cardiac rehab at [facility] Referral to [facility] [REF43 Custom] As directed Process Instructions: If no progress note charted, please enter Clinical details in comments. Scheduling Instructions: Questions: My question or request is: patient with inferior stemi with history of statin allergy (rash) - please evaluate for psck9 inhibitor. Referral to Home Health - at DISCHARGE [[id number] CPT(R)] As directed Process Instructions: Scheduling Instructions: Comments: DOCUMENTATION FOR VNA SERVICES PATIENT'S LOCATION: [address] [phone] (home) Chicken Buyer's Name: Self In discussion with the attending physician, it is certified that this patient is under his/her care and that MD, or an NAVAL GUNFIRE SPOTTER, PAPER FINAL INSPECTOR, or PA who is working directly with him/her, had a zkyt-yc-qoye encounter that meets the physician bhrj-le-iabw encounter requirements with this patient on 12/07/2019. [...] for managing ADLs. HOME HEALTH CARE AGENCY: [facility], PHONE: [phone] FAX: [phone] Start of care: 24-48 hours after hospital [...] MD [address] / [place] [address] All A agencies which cover the area of patient's residence have been reviewed, either verbally or in writing, and patient/family have chosen the home health care agency noted. Questions: Agency name and contact information: [facility] Patient location post discharge: Home What services are requested: Registered Nurse Physical Therapy Occupational Therapy Start date: Responsible MD post discharge contact info: PCP Your PCP: France Lam MD [phone] For questions regarding this document or issues relating to this hospitalization on the Cardiology Service, please contact your inpatient physician through the [facility] Carpenter/Labor . Issues after hours and on weekends will be handled by the Senior Principal Architect on-call. Patient Instructions: Neurology Your Diagnosis: Left [...] the neurology clinic at [facility]. See below for the appointment time. If you do not have an appointment, you will be called with a time/date for this appointment. ??? Primary Care Provider: Please follow up with your Primary Care Provider within one to 2 weeks ofdischarge. AttachmentsThe following attachments cannot be sent through Care Everywhere. Atrial Fibrillation ([place])Cardiac Rehabilitation ([place])Heart Failure ([place])Heart Failure: Limiting Sodium ([place])Hemorrhagic Stroke: General Info ([place])Smoking: Stopping ([place])Stroke Rehabilitation: General Info ([place])Pulmonary Embolism ([place])documented in this encounter Medications at Time of [...] consulted in the interim. Vikash Rodriguez Pager: [phone] Paris Dodd MD - 12/08/2019 8:57 AM [...] complications include novel onset, paroxysmal atrial fibrillation [[id number]: 5] & L-sided diplopia with potential hemineglect [...] consulted in the interim. Vikash Rodriguez Pager: [phone] Paris Dodd MD - 12/07/2019 9:55 AM [...] complications include novel onset, paroxysmal atrial fibrillation [OYA8BS0PVDJ: 5] & L-sided diplopia with potential hemineglect [...] complications include novel onset, paroxysmal atrial fibrillation [KKI3BR5ZFDT: 5] & L-sided diplopia with potential hemineglect [...] complications include novel onset, paroxysmal atrial fibrillation [XZU4OZ0GNVM: 5] & L-sided diplopia with potential hemineglect [...] today; additional complications include paroxysmal atrial fibrillation [EYB6SD5AUSN: 4] c/b possible cardioembolic stroke, ICH from [...] length from neck/greatest diameter to back wall: TAJIK 91, CAU 13: 19 mm CORTES 1, [...] a non-culprit artery. S/P DESx3 in the cebovpfb-ea-ktluuw RCA. Aspiration thrombectomy performed, and integrellin bolus [...] complications include novel onset, paroxysmal atrial fibrillation [JKZ0SS7GHEX: 5] & L-sided diplopia with potential hemineglect [...] R occipital cardioembolic stroke #Paroxysmal Afib with LN7FVASF0B score of 5 #New segmental bilateral PEs [...] Glasgow MD PGY1, Internal Medicine Cardiology S2, #0199 Associated attestation - Paris Dodd MD - 12/05/2019 2:59 PM EDT I was the assigned attending patient access director for this clinical encounter. For the purposes [...] 12/04/2019 10:36 AM EDT Office of Care Management(OCM)/Talent Acquisition Specialist(CM)/Discharge Planning Service: Cardiology S2 team CM Bernie Alexander,RN,BSN,MA,ACM pgr [phone] Reviewed record and in Cardiology Rounds with MD team,CMs, dowel inserting machine operator, FIRE PREVENTION CAPTAIN. Pt is anticipated ready for d/c later today. Met w pt re d/c plan and he continues to agree with home PT/OT/RN w [place]. His son is bringing his to pick him up together. Discussed Advance Directives and DPOAH- he states he has at home and designated his as primiary; he thought his PCP would have copy. Tel call to PCP who notes no DPOAH on file. Encouraged pt to take his AD to his PCP and to any [facility] appt for each to have on file. [...] complications include novel onset, paroxysmal atrial fibrillation [CBT3XF4EJEM: 4] & L-sided diplopia with potential hemineglect [...] a non-culprit artery. S/P DESx3 in the ailxyvyz-vf-dsgibm RCA. Aspiration thrombectomy performed, and integrellin bolus [...] complications include novel onset, paroxysmal atrial fibrillation [ZST8VY9JFLW: 5] & L-sided diplopia with potential hemineglect [...] R occipital cardioembolic stroke #Paroxysmal Afib with GC6YUUNR6Y score of 5 - No anticoagulation for [...] Glasgow MD PGY1, Internal Medicine Cardiology S2, #8855 I have seen the patient and reviewed [...] in my clinic. Gretchen Yoon MD Pager [phone] Derian Pascual RN - 12/03/2019 9:29 AM [...] Discharge: None Electronically signed: Derian Pascual RN, Talent Acquisition Specialist Pgr: [phone] 12/03/2019 9:29 AM Gretchen Yoon [...] complications include novel onset, paroxysmal atrial fibrillation [CFC2XD3CIAW: 4] & L-sided diplopia with potential hemineglect [...] a non-culprit artery. S/P DESx3 in the learkgfj-yh-dmxyzm RCA. Aspiration thrombectomy performed, and integrellin bolus [...] complications include novel onset, paroxysmal atrial fibrillation [UDZ9LN3LFZX: 5] & L-sided diplopia with potential hemineglect [...] [facility] and follow up with [facility] PCP. Patient voiced strong will to quit smoking now, understood that we have resources available for help. Plan [P]: --Neurologic-- # Concern for Left-Sided Diplopia, r/o Hemineglect # Concern for CVA, last-known well 11/29/19 - MRI showed possible cardioembolic stroke #Afib with GT8UCLZK1C score of 5 - Stroke Team Consulted; [...] Anticoagulation/Arrhythmia # Novel Onset, Paroxsymal Atrial Fibrillation [QOJ8GK3ITDM: 5] - Hold off anticoagulation for at [...] w straight cath prn # Nutrition - [facility] Diet, 2g Na. -- Hematology/Oncology-- # Mild [...] Glasgow MD PGY1, Internal Medicine Cardiology S2, #5163 I have seen the patient and reviewed the resident's above history and I agree with the details as written. The assessment and plan were formulated in discussion with me and I agree with them as documented. Gretchen Yoon MD Pager [phone] Raul Hein RN - 12/03/2019 5:55 AM [...] Negative mcL Appearance UA Clear Clear Spec [place] UA 1.026 1.006 - 1.030 Color UA [...] PGY3 Neurology Resident 12/01/2019 Vascular Neurology Pager [phone] Neurology Attending Attestation I evaluated the patient [...] documented. Deepthi Roman MD Vascular Neurology Standard [facility] Swallow Screen: This screen is to be [...] diet as medical provider deems appropriate. Consider MANAGER LABOR RELATIONS consult for full evaluation and diet recommendations. [...] complications include novel onset, paroxysmal atrial fibrillation [[id number]: 4] & L-sided diplopia with potential hemineglect [...] a non-culprit artery. S/P DESx3 in the arypwfij-lj-dqimtd RCA. Aspiration thrombectomy performed, and integrellin bolus [...] complications include novel onset, paroxysmal atrial fibrillation [[id number]: 5] & L-sided diplopia with potential hemineglect [...] Anticoagulation/Arrhythmia # Novel Onset, Paroxsymal Atrial Fibrillation [[id number]: 5] - Hold off anticoagulation - pending [...] tamsulosin d/t low BP. # Nutrition - [facility] Diet -- Hematology/Oncology-- # Mild Thrombocytopenia, unclear [...] Glasgow MD PGY1, Internal Medicine Cardiology S2, #[id number] I have seen the patient and reviewed [...] the ICU team. Gretchen Yoon MD Pager [phone] Natalia Claros APRN - 12/02/2019 8:38 AM [...] - We are signing off. Please page [phone] with any questions or concerns. For questions please call NS pager [phone] Natalia Claros APRN 12/02/2019 8:38 AM Clinical Documentation Improvement: Active Hospital Problems Diagnosis ??? Acute ST elevation myocardial infarction (STEMI) of inferior wall ??? Intracranial hemorrhage ??? Hyperlipidemia ??? Tobacco abuse ??? Claudication from peripheral vascular disease, left Resolved Hospital Problems No resolved problems to display. Tello Hsu, FILEMAKER DEVELOPER - 12/02/2019 2:06 AM EDT 06/01/20 2010 [...] Scan in afternoon. Upon arrival back in [facility] placed on low flow NC [...] complications include novel onset, paroxysmal atrial fibrillation [[id number]: 4] & L-sided diplopia with potential hemineglect for which CVA evaluationto be pursued. Active Problems/Subjective: - 11/28: admitted for inferior STEMI, RV failure requiring pressor - got lytics, aspirin and plavix load, heparin gtt, and eptifibatide. 3 MACARIO stents to RCA. Woodworth cath - low wedge & CVP so [...] a non-culprit artery. S/P DESx3 in the otwkwfrc-tk-utyhem RCA. Aspiration thrombectomy performed, and integrellin bolus [...] complications include novel onset, paroxysmal atrial fibrillation [[id number]: 4] & L-sided diplopia with potential hemineglect [...] Anticoagulation/Arrhythmia # Novel Onset, Paroxsymal Atrial Fibrillation [[id number]: 4] - Obtain: TTE - Pending CVA [...] tamsulosin d/t low BP. # Nutrition - [facility] Diet -- Hematology/Oncology-- # Mild Thrombocytopenia, unclear [...] MD, PGY1 PGY3, Internal Medicine Cardiology S2, #[id number] I have seen the patient and reviewed [...] down the line. Gretchen Yoon MD Pager [phone] ?? Gretchen Yoon MD Pager [phone] Natalia Claros APRN - 12/01/2019 1:33 AM [...] per primary team For questions please call [email or web address] pager [phone] Natalia Claros APRN 12/01/2019 7:42 AM Clinical Documentation Improvement: Active Hospital Problems Diagnosis ??? Acute ST elevation myocardial infarction (STEMI) of inferior wall ??? Intracranial hemorrhage ??? Hyperlipidemia ??? Tobacco abuse ??? Claudication from peripheral vascular disease, left Resolved Hospital Problems No resolved problems to display. Tello Hsu, FILEMAKER DEVELOPER - 11/30/2019 8:44 PM EDT Respiratory Therapy [...] EDT Narrative:Visited in response to request for Wash Driller services. Pt was awake, alert, oriented and in bed. Assessment:Patient coping positively with stresses of illness/hospitalization at this time. Pt says that he is hoping to get better and pt is living with and has children and grandchildren. Pt haspurpose of life and has reason to get getter and to be with family. Outcome: Provided emotional and spiritual support and encouraging presence. Wash Driller services accepted.Conversation to build trusting relationship.Provided pastoral [...] complications include novel onset, paroxysmal atrial fibrillation [AZM2PT4CJMZ: 4] & L-sided diplopia with potential hemineglect for which CVA evaluationto be pursued. Active Problems/Subjective: - Overnight, CVP < 12 for which a total of 1 L IVF provided - Today AM, patient complains of subjectively reported, left-sided hemineglect with floaters and diplopia [see: exam]. - Otherwise, c/o neck pain 2/2 R IJ Woodworth & L radial A line. Otherwise, denies [...] a non-culprit artery. S/P DESx3 in the daiwdmic-fe-xdxitn RCA. Aspiration thrombectomy performed, and integrellin bolus [...] complications include novel onset, paroxysmal atrial fibrillation [RHY5GM3OJUX: 4] & L-sided diplopia with potential hemineglect [...] Anticoagulation/Arrhythmia # Novel Onset, Paroxsymal Atrial Fibrillation [[id number]: 4] - Obtain: TTE to confirm rhythm [...] tamsulosin d/t low BP. # Nutrition - [facility] Diet -- Hematology/Oncology-- # Mild Thrombocytopenia, unclear [...] MD, PGY3 PGY3, Internal Medicine Cardiology S2, #[id number] I have seen the patient and reviewed [...] down the line. Gretchen Yoon MD Pager [phone] Paola Capps RN - 11/30/2019 6:57 AM EDT PT still requiring 4 of levo, several attempts to titrate down (maps in 70;s) But maps would drop toless than 65. Pt very restless in bed Raising and lowering head denies pain . Integrillin stopped [id number] when bottle complete , urine tea colored [...] PCP: France Lam MD PCP phone #: [phone] Cable Tool Operator: None ID/Chief Complaint: Chest pain History of Present Illness: 74 y.o male with no significant PMH, was in usual state of health until yesterday when he woke up at 4am this morning with severe crushing substernal chest pain 10/. He took two full strength aspirin and came to [facility] ED. At there was found to [...] and Compazine. He was transferred directly to [facility] via [facility] for further management. Patient had an emergent PCI with 3 MACARIO stents placed to his RCA, with mild disease of LCX (report pending) at [facility]. He was found to be persistently hypotensive requiring Levo up to 10mcg/min. He was transferred to [facility] after the cath procedure. Bedside RHC showed CI 2.12, PAWP 11, PAP 38/15 indicating hypovolemic state. He received 1L bolus of NS with improvement of his blood pressure to 124/61. History of PAD, HLD - had side reactions to statins - so taking niacin and red rye grain. Chronic active smoker with more than 65 pack years. Family history of [place] in father and two uncles. He's takingbaby [...] ??? Penicillins Pt doesn't remember reaction ??? Ksjunyb-Inq-Ahi Reductase Inhibitors Stiff neck, upset stomach, back pain Family History: Mother: Father: [place] 2 Uncles with MIs Social History: Tobacco: Current active smoker 1 ppd. 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 Vitals: Last value Range last [...] in the last 7068 hours. Invalid input(s): BKFGMKEDADT2Q Heme: No results for input(s): LDH, HAPTOGLOBIN, [...] OSH prior to transfer and PCI at [facility]. Massive inferior STEMI with troponin level 20, currently in CVCC due to pressor requirement. BedsideRHC demonstrated evidence of elevated right sided heart failure, but his wedge was wnl. He received 1L bolus with improvement of his blood pressure and reduction of his pressor requirement. PLAN: Admit to Cardiology, S2 Team Pager # [phone] #Inferior STEMI, LEYLA [phone] - Resolving EKG [...] inferior STEMI s/p lytic therapy. Transferred to [facility] and underwent successful PCI of the RCA with MACARIO x3. Gretchen Yoon MD Pager [phone] documented in this encounter Procedure Notes Juventino [...] to the planned procedure. Hand Hygiene: The rehab physician did perform hand hygiene prior to arterial [...] a suspected line-associated infection. Location of Procedure: [facility] Risks and Benefits: The risks [...] to the planned procedure. Hand Hygiene: The rehab physician did perform hand hygiene prior to line [...] side:right An Introducer (PSI Kit) was used. [place]. Insertion Side: right. Insertion Site: internal jugular. Catheter Details: Number of Lumens: 1 Catheter Type: heparin-coated The line was placed over a guidewire. Confirmation of Venous Placement: Venous placement was confirmed by transducing the pressure. Introducer Insertion Attempts: 1 Comments: Floating the Woodworth-Mo Catheter Attempts: 1 Comments: Sterile Dressing: Biopatch [...] better pt back in [place]. Please page [phone] for any more cares or concerns Plan [...] complications include novel onset, paroxysmal atrial fibrillation [[id number]: 5]& L-sided diplopia with potential hemineglect for [...] Total Evaluation Minutes, Occupational Therapy: 10 Pager: [phone] FRANCINE Nuñez Occupational Therapy Rehabilitation Department Plan [...] complications include novel onset, paroxysmal atrial fibrillation [[id number]: 5] & L-sided diplopia with potential hemineglect [...] hand rails). Baseline Mobility: Independent. Drives. Shares right of way supervisor with his , however her mobility is [...] plan as stated. Time IN / OUT: 8236-7905 Total Evaluation Minutes, Physical Therapy: 15(gtx1) Barbara Baldwin, PT Pager: [phone] Physical Therapy Inpatient Rehabilitation Department Plan of [...] he receives all he needs through the [facility]. Consult refused. Romain Tran, MSN, RN-, [facility] Tobacco Low Heel Builder [facility] Pager #[phone] Plan of Care - Romain Oglesby OT [...] complications include novel onset, paroxysmal atrial fibrillation [VXQ4MF6CHJF: 5] & L-sided diplopia with potential hemineglect [...] and measurable assessment of functional outcome. Pager: [phone] ROMAIN OGLESBY OT 12/03/2019 Occupational Therapy Rehabilitation [...] in an outpatient cardiac rehabilitation program at [facility] was discussed. Patient agrees to a referral to this program. His has been a cardiac rehab patient at [facility] and he is familiar with the [...] complications include novel onset, paroxysmal atrial fibrillation [VSB5HB6APXC: 5] & L-sided diplopia with potential hemineglect [...] hand rails). Baseline Mobility: Independent. Drives. Shares right of way supervisor with his , however her mobility is [...] in this evaluation. Time IN / OUT: 9471-6739 Total Evaluation Minutes, Physical Therapy: 25(eval, gtx1) Barbara Baldwin, PT Pager: [phone] Physical Therapy Inpatient Rehabilitation Department Consult Note [...] 31.2 (L) 12/01/2019 Nutritional Intake Current bed: [facility] Assessment: Patient is with an [...] Please contact JOHANNA NOBLES RN on pager [phone] or the wound care team at [phone] or pager [phone] skin and wound care concerns or questions. [...] Salinas would be surrogate decision maker per [place] surrogate decision making law. Any patient receiving carspousee at [facility] must abide by [place] law. The hierarchy for surrogate decisionmaking is: [...] (i) The agent with financial power of senior trial attorney or a conservator appointed in accordance [...] Insurance: N/A Prescription Coverage: Yes Preferred Pharmacy: [place], [place] Other: No Primary Care Provider: France Lam MD [phone] Patient/Caregiver Goals of Treatment: Return home Potential Needs for Transition of Care: Rehab/SNF: Based on discussions with the multi-disciplinary healthcare team, the patient would benefit from SNF level of care at discharge. ?? I have met with the patient to discuss discharge planning needs. I have provided the [facility], Officeof Care Management letter from the Steam Setter pertaining to rehab referrals. I have also provided a letter describing our affiliations within the [facility] and educated them about their [...] patient have requested referrals to: ?? 1. [facility] [address] [place] [id number] ?? [address]. [address] [place] [address] Note routed to Autism Specialist who will communicate referrals to facilities and provide any required information. Home Health: If therapies recommend home w/ VNA, the patient has been provided a list of Home Health Agencies/DME vendors which serve their preferred geographic area. A letter describing our affiliations was reviewed with them and they were educated about their right to choose where referrals are placed. Patient requests referral to [facility] [employer]. PHONE: [phone] FAX: [phone] Referral routed to the Autism Specialist for matching with agency/vendor and to provide [...] Insured w/ Medicare. Gets medications filled at [facility] in [place], [place]. Son to transport at discharge Plan: Discharge dispo depending on patient's physical recovery; SNF vs home w/ VNA. A member of the Care Management team will continue to monitor progress, follow for continuity of care and assist with transition of care planning. Derian Pascual, NIURKA Pager: [phone] Plan of Care - Estefani Baeza RN [...] ??? Penicillins Pt doesn't remember reaction ??? Yjxixil-Dux-Gbc Reductase Inhibitors Stiff neck, upset stomach, back [...] noncontrast head CT and [place] at 1600 hrs. We will [...] vision concerning for stroke. Patient presented to [facility] in transfer for a STEMI after presenting [...] ??? Penicillins Pt doesn't remember reaction ??? Fbanrxn-Wbh-Syb Reductase Inhibitors Stiff neck, upset stomach, back [...] file Gets together: Not on file Attends rastafari service: Not on file Active member of [...] L Elbow flexion 5/5 R, 5/5 L Electrical Timing Device Calibrator LE: 5/5 R, 5/5 L Hip flexion [...] PGY3 Neurology Resident 11/30/2019 Vascular Neurology Pager [phone] Standard [facility] Swallow Screen: This screen is to be [...] diet as medical provider deems appropriate. Consider MANAGER LABOR RELATIONS consult for full evaluation and diet recommendations. [...] with R visual field deficits. STEMI s/p MACAROI 74 Y M with history of PAD, HTN, HL smoking Afib admitted s/p thrombolysis and Cath-Stent to [facility] who developed R sided visual symptoms. CT [...] MD Department of Neurology [facility] Brief Op Note - Gretchen Yoon MD - 11/29/2019 8:38 PM EDT Brief Operative Note Patient Name: Angel Luis Salinas : [id number] MR#: [id number] Case Date: 11/29/2019 Surgeon: Surgeon(s) and Role: * Gretchen Yoon MD - Primary * Aidan Ward MD - Fellow Preoperative diagnosis: Inferior STEMI Postoperative diagnosis: Inferior STEMI Procedure(s) (LRB): CARDIAC CATHETERIZATION (N/A) Findings: Discrete 90% stenosis in the prox-to-mid RCA. Severe diffuse disease in the distal vessel. Discrete LCX stenosis in a non-culprit artery. S/P DESx3 in the lobcubtr-li-bxrnct RCA. Aspiration thrombectomy performed, and integrellin bolus [...] are i n the results section. CT [facility] [place] [facility] STAT 11/30/2019 4:36 Res [...] athologist Signature Potassium 3.9 3.5 - 5.0 [facility] mmol/L [facility] Comment: Please note: ??Patients with WBC [...] Organization Address City/State/[place] [address] (ABNORMAL) Hemogram (12/08/2019 12:39 PM EDT) Analysis Performed At Patho logist Time Signature WBC 9.9 (H) 4.0 - 9.5 [facility] x[facility](3[facility] LABORATORY RBC 4.51 (L) 4.58 - [place] DOV 5.54 [facility] x10(6)/[facility] LABORATORY Hemoglobin 13.0 (L) 13.7 - [place] 16.5 gm/dL [facility] Hematocrit 40.5 40.5 - [place] 48.5 % [facility] MCV 89.8 82.9 - [facility] DOV 93.1 [facility] LABORATORY MCH 28.8 27.5 - [place] 32.1 pg [facility] MCHC 32.1 32.0 - [place] 35.7 gm/dL [facility] Platelets 214 145 - 357 [facility] x10(3)/[facility] LABORATORY RDWSD 49.2 (H) 36.0 - [place] 45.0 [facility] LABORATORY RDWCV 15.1 (H) 11.4 - [place] DOV 13.8 % [facility] MPV 12.1 7.6 - 12.9 [facility] nRBC % Auto 0.0 % [facility] nRBC Abs Auto 0.000 0.000 - [place] D[place] 0.000 [facility] x10(3)/[facility] LABORATORY Specimen Anatomical Collection Method Collection Time Receive d Time (Source) Location / / Volume Laterality Blood specimen 12/08/2019 12:39 0 (specimen) PM EDT 12:47 PM EDT Resulting Agency Comment Spec In Lab Gretchen Yoon MD HEMATOLOGY ORDERABLES Performing Organization Address City/State/ZIP Code Phon e Number [address] Hepatic Function Panel (12/08/2019 6:28 AM EDT) athologist Signature Total Protein 6.6 6.1 - 8.0 [facility] DOV gm/dL [facility] Albumin 3.2 3.2 - 5.2 [place] gm/dL [facility] AST 18 0 - 39 [place] unit/L [facility] ALT 13 0 - 55 [place] unit/L [facility] Alk Phos 64 40 - 130 [facility] DOV unit/L [facility] Total 0.4 0.2 - 1.3 [facility] Bilirubin mg/dL [facility] Bili, Direct 0.1 0.0 - 0.3 [facility] DOV mg/dL [facility] Specimen Anatomical Collection Method Collection Time Receive d Time (Source) Location / / Volume Laterality Blood specimen Venous Draw / 12/08/2019 6:28 AM 2019 6:36 (specimen) Unknown EDT AM EDT Resulting Agency Comment Spec In Lab Rkii Stevens MD CHEMISTRY ORDERABLES Performing Organization Address City/[facility]/ZIP Code Phon e Number [address] (ABNORMAL) TSH (12/08/2019 6:28 AM EDT) athologist Signature TSH 5.27 (H) 0.27 - 4.20 [facility] DOV mcIU/mL [facility] Specimen Anatomical Collection Method Collection Time Receive d Time (Source) Location / / Volume Laterality Blood specimen Venous Draw / 12/08/2019 6:28 AM 2019 6:36 (specimen) Unknown EDT AM EDT Resulting Agency Comment Spec In Lab Darrell Glasgow MD CHEMISTRY ORDERABLES Performing Organization Address City/[facility]/ZIP Code Phon e Number [address] Potassium (12/08/2019 6:28 AM EDT) P athologist Signature Potassium 4.2 3.5 - 5.0 [facility] mmol/L [facility] Comment: Please note: ??Patients with WBC [...] Organization Address City/State/ZIP Code Phon e Number [place] [id number] (ABNORMAL) Differential, Automated (12/08/2019 12:43 AM EDT) Patholo gist Method Time Signature Neutrophils % 60.7 % [facility] Neutr Abs (ANC) 6.81 (H) 1.70 - [facility] 6.10 [facility] x10(3)/[facility] LABORATORY Lymphocytes % 23.4 % [facility] Lymphocytes Abs 2.6 0.9 - 3.2 [facility] x10(3)/[facility] LABORATORY Monocytes % 10.0 % [facility] Monocyte Abs 1.1 (H) 0.3 - 0.9 [facility] x10(3)/[facility] LABORATORY Eosinophils % 3.7 % [facility] Eosinophils Abs 0.4 0.0 - 0.4 [facility] x10(3)/[facility] LABORATORY Basophils % 1.2 % [facility] Basophils Abs 0.1 0.0 - 0.1 [facility] x10(3)/[facility] LABORATORY Immature Gran % 1.00 % [facility] Comment: Immature granulocytes(IG's)percentage an d absolute count will include metamyelocytes, myelocytes, and promyelo cytes. Blood smears from CBCs yielding IG's will be scanned manually for concor dance. If this scan disagrees with the automated IG or if promyelocytes are not ed, a manual differential will be performed. Pita Gran Abs 0.11 (H) 0.00 - 0.04 x10(3)/[facility] LABORATORY Specimen Anatomical Collection Method Collection Time Receive d Time (Source) Location / / Volume Laterality Blood specimen 12/08/2019 12:43 0 (specimen) AM EDT 12:52 AM EDT Resulting Agency Comment Spec In Lab Riki Stevens MD HEMATOLOGY ORDERABLES Performing Organization Address City/State/[place] [address] (ABNORMAL) Hemogram (12/08/2019 12:43 AM EDT) Analysis Performed At Patho logist Time Signature WBC 11.2 (H) 4.0 - 9.5 [facility] x10(3)/[facility] LABORATORY RBC 4.46 (L) 4.58 - [facility] DOV 5.54 [facility] x10(6)/[facility] LABORATORY Hemoglobin 13.1 (L) 13.7 - [facility] 16.[facility] gm/dL [facility] Hematocrit 40.5 40.5 - [facility] DOV 48.5 % [facility]ATORY MCV 90.8 82.9 - [facility] 93.1 [facility] LABORATORY MCH 29.4 27.5 - [facility] DOV 32.1 pg [facility] LABORATORY MCHC 32.3 32.0 - [facility] DOV 35.7 gm/dL [facility] LABORATORY Platelets 215 145 - 357 [facility] x10(3)/[facility] LABORATORY RDWSD 49.8 (H) 36.0 - [facility] DOV 45.0 [facility] LABORATORY RDWCV 15.2 (H) 11.4 - [facility] DOV 13.8 % [facility] LABORATORY MPV 12.3 7.6 - 12.9 [facility] LABORATORY nRBC % Auto 0.0 % [facility] nRBC Abs Auto 0.000 0.000 - [facility] DOV 0.000 [facility] x10(3)/[facility] LABORATORY Specimen Anatomical Collection Method Collection Time Receive d Time (Source) Location / / Volume Laterality Blood specimen 12/08/2019 12:43 0 (specimen) AM EDT 12:52 AM EDT Resulting Agency Comment Spec In Lab Riki Stevens MD HEMATOLOGY ORDERABLES Performing Organization Address City/State/ZIP Code Phon e Number [address] Magnesium (12/08/2019 12:43 AM EDT) athologist Signature Magnesium 1.01 0.69 - 1.07 [facility]/L [facility] Specimen Anatomical Collection Method Collection Time Receive d Time (Source) Location / / Volume Laterality Blood specimen 12/08/2019 12:43 0 (specimen) AM EDT 12:52 AM EDT Resulting Agency Comment Spec In Lab Gretchen Yoon MD CHEMISTRY ORDERABLES Performing Organization Address City/State/[place] [address] (ABNORMAL) BMP w/fasting Glucose (12/08/2019 12:43 AM EDT) P athologist Signature Glucose 106 (H) 65 - 99 [facility] F[facility] mg/dL [facility] Comment: ?Fasting* Glucose Interpretive C riteria [...] of Diabetes Mellitus, Position Statement from the [place] [employer]. ??Diabete s Care, Volume 33, Supplement 1, Jul 2009 BUN 14 10 - 20 mg/dL [facility] DOV [facility] LAB[facility] Creatinine 1.16 0.80 - 1.50 mg/dL [facility] LABORATORY Sodium 134 (L) 135 - 145 mmol/L [facility] LAB[facility]ORY Potassium 4.0 3.5 - 5.0 mmol/L [facility] Comment: Please note: ??Patients with WBC >100,00 0 may have falsely elevated Potassium levels. ??For accurate Potassium quantif ication in these patients send serum separator tube (gold top) for subsequent determinations. ??Contact the Clinical Chemistry Laboratory if there are any qu estions. Chloride 99 98 - 107 mmol/L [facility] CO2 19 (L) 22 - 31 mmol/L [facility] Anion Gap 16 (H) 5 - 15 mmol/L [facility] Calcium 8.9 8.5 - 10.5 mg/dL [facility] Estimated GFR 62 >=60 mL/min/1.73 m?? [facility] Comment: The eGFR was calculated using the CKD-EP I equation. As with all creatinine based estimates of kidney function, eGFR values calculated with the CKD-EPI equation are not accurate in patients wi th acute kidney failure, extremes of body mass or the acutely ill. [email or web address]/[facility]LL[facility]f eGFR 72 >=60 mL/min/1.73 m?? [facility] Comment: The eGFR was calculated using the CKD-EP I equation. As with all creatinine based estimates of kidney function, eGFR values calculated with the CKD-EPI equation are not accurate in patients wi th acute kidney failure, extremes of body mass or the acutely ill. [email or web address]/[facility]LLnkf Specimen Anatomical Collection Method Collection Time Receive d Time (Source) Location / / Volume Laterality Blood specimen 12/08/2019 12:43 0 (specimen) AM EDT 12:52 AM EDT Resulting Agency Comment Spec In Lab Gretchen Yoon MD CHEMISTRY ORDERABLES Performing Organization Address City/State/ZIP Code Phon e Number [place] [id number]ORY [address] Heparin (unfractionated) Level (12/08/2019 12:43 AM EDT) athologist Signature Heparin UFH 0.60 IU/mL [facility] Comment: Guidelines for therapeutic [...] Organization Address City/State/[place] [address] Potassium (12/07/2019 8:39 PM EDT) athologist Signature Potassium 4.1 3.5 - 5.0 [facility] mmol/L [facility] Comment: Please note: ??Patients with WBC [...] Organization Address City/State/ZIP Code Phon e Number [address] Potassium (12/07/2019 4:02 PM EDT) P athologist Signature Potassium 4.0 3.5 - 5.0 [facility] DOV mmol/L [facility] Comment: Please note: ??Patients with WBC [...] Organization Address City/[facility]/[place] [address] (ABNORMAL) Hemogram (12/07/2019 4:02 PM EDT) Analysis Performed At Patho logist Time Signature WBC 17.4 (H) 4.0 - 9.5 [place] DOV x10(3)/[facility] LABORATORY RBC 4.58 4.58 - [place] DOV 5.54 [facility] x10(6)/[facility] LABORATORY Hemoglobin 13.5 (L) 13.7 - [place] DOV 16.5 gm/dL [facility] Hematocrit 40.8 40.5 - [place] DOV 48.5 % [facility] MCV 89.1 82.9 - [place] DOV 93.1 [facility] LABORATORY MCH 29.5 27.5 - [place] DOV 32.1 pg [facility] MCHC 33.1 32.0 - [place] DOV 35.7 gm/dL [facility] Platelets 238 145 - 357 [place] DOV x10(3)/[facility] LABORATORY RDWSD 48.8 (H) 36.0 - [place] DOV 45.0 [facility] LABORATORY RDWCV 15.0 (H) 11.4 - [facility] DOV 13.8 % [facility] MPV 12.2 7.6 - 12.9 [place] DOV [facility] LABORATORY nRBC % Auto 0.0 % [facility] nRBC Abs Auto 0.000 0.000 - [place] MONAE 0.000 [facility] x10(3)/[facility] LABORATORY Specimen Anatomical Collection Method Collection Time Receive d Time (Source) Location / / Volume Laterality Blood specimen 12/07/2019 4:02 PM 020 4:08 (specimen) EDT PM EDT Resulting Agency Comment Spec In Lab Gretchen Yoon MD HEMATOLOGY ORDERABLES Performing Organization Address City/[facility]/[place] [address] EKG 12 Lead (12/07/2019 [...] (Bezet) Calculated P -12 degrees [facility] [place] Calculated R 10 degrees [facility] [place] Calculated T -138 degrees [facility] [place] INTERPRETATION Supraventricular tachycardia MUSE SYSTEM Low voltage [...] athologist Signature Potassium 4.2 3.5 - 5.0 [facility] mmol/L [facility] Comment: Please note: ??Patients with WBC [...] Lagos MD CHEMISTRY ORDERABLES Performing Organization Address [facility] [place] [address] Heparin (unfractionated) Level (12/07/2019 11:43 AM EDT) athologist Signature Heparin UFH 0.59 IU/mL [facility] Comment: Guidelines for therapeutic [...] Lagos MD HEMATOLOGY ORDERABLES Performing Organization Address [facility] [place] [address] Heparin (unfractionated) Level (12/07/2019 5:20 AM EDT) P athologist Signature Heparin UFH 0.53 IU/mL [facility]ORY Comment: Guidelines for therapeutic [...] Organization Address City/State/[place] [address] (ABNORMAL) Differential, Automated (12/07/2019 5:20 AM EDT) Patholo gist Method Time Signature Neutrophils % 62.4 % [facility] Neutr Abs (ANC) 5.46 1.70 - [facility] 6.10 [facility] x10(3)/[facility] LABORATORY Lymphocytes % 20.3 % [facility] Lymphocytes Abs 1.8 0.9 - 3.2 [facility] x10(3)/[facility] LABORATORY Monocytes % 11.0 % [facility] Monocyte Abs 1.0 (H) 0.3 - 0.9 [facility] x10(3)/[facility] LABORATORY Eosinophils % 4.5 % [facility] Eosinophils Abs 0.4 0.0 - 0.4 [facility] x10(3)/[facility] LABORATORY Basophils % 0.9 % [facility] Basophils Abs 0.1 0.0 - 0.1 [facility] x10(3)/[facility] LABORATORY Immature Gran % 0.90 % [facility] Comment: Immature granulocytes(IG's)percentage an d absolute count will include metamyelocytes, myelocytes, and promyelo cytes. Blood smears from CBCs yielding IG's will be scanned manually for concor dance. If this scan disagrees with the automated IG or if promyelocytes are not ed, a manual differential will be performed. Pita Gran Abs 0.08 (H) 0.00 - 0.04 x10(3)/[facility] LABORATORY Specimen Anatomical Collection Method Collection Time Receive d Time (Source) Location / / Volume Laterality Blood specimen 12/07/2019 5:20 AM 020 5:37 (specimen) EDT AM EDT Resulting Agency Comment Spec In Lab Riki Stevens MD HEMATOLOGY ORDERABLES Performing Organization Address City/State/[place] [address] (ABNORMAL) Hemogram (12/07/2019 5:20 AM EDT) Analysis Performed At Patho logist Time Signature WBC 8.7 4.0 - 9.5 [facility] x10(3)/[facility] LABORATORY RBC 4.20 (L) 4.58 - [facility] 5.54 [facility] x10(6)/[facility]ORATORY Hemoglobin 12.3 (L) 13.7 - [facility] 16.[facility] gm/dL [facility] Hematocrit 37.4 (L) 40.5 - [facility] 48.5 % [facility] MCV 89.0 82.9 - [facility] 93.1 fL [facility] MCH 29.3 27.5 - [facility] 32.1 pg [facility] MCHC 32.9 32.0 - [place] MONAE 35.7 gm/dL [facility] Platelets 181 145 - 357 MELINA MONAE x10(3)/[facility] LABORATORY RDWSD 47.7 (H) 36.0 - [place] MONAE 45.0 [facility] LABORATORY RDWCV 14.8 (H) 11.4 - [place] MONAE 13.8 % [facility] MPV 12.3 7.6 - 12.9 [place] DOV [facility] LABORATORY nRBC % Auto 0.0 % [facility] nRBC Abs Auto 0.000 0.000 - [place] MONAE 0.000 [facility] x10(3)/[facility] LABORATORY Specimen Anatomical Collection Method Collection Time Receive d Time (Source) Location / / Volume Laterality Blood specimen 12/07/2019 5:20 AM 020 5:37 (specimen) EDT AM EDT Resulting Agency Comment Spec In Lab Riki Stevens MD HEMATOLOGY ORDERABLES Performing Organization Address City/[facility]/ZIP Code Phon e Number [address] Magnesium (12/07/2019 5:20 AM EDT) P athologist Signature Magnesium 0.89 0.69 - 1.07 [facility]/L [facility] Specimen Anatomical Collection Method Collection Time Receive d Time (Source) Location / / Volume Laterality Blood specimen 12/07/2019 5:20 AM 020 5:37 (specimen) EDT AM EDT Resulting Agency Comment Spec In Lab Gretchen Yoon MD CHEMISTRY ORDERABLES Performing Organization Address City/[facility]/ZIP Code Phon e Number [address] (ABNORMAL) BMP w/fasting Glucose (12/07/2019 5:20 AM EDT) P athologist Signature Glucose 100 (H) 65 - 99 [facility] Fasting mg/dL [facility] Comment: ?Fasting* Glucose Interpretive C riteria [...] of Diabetes Mellitus, Position Statement from the [employer]. ??Diabete s Care, Volume 33, Supplement 1, Jul 2009 BUN 14 10 - 20 mg/dL [facility] Creatinine 0.83 0.80 - 1.50 mg/dL [facility] Sodium 135 135 - 145 mmol/L [facility] Potassium 3.8 3.5 - 5.0 mmol/L [facility] Comment: Please note: ??Patients with WBC >100,00 0 may have falsely elevated Potassium levels. ??For accurate Potassium quantif ication in these patients send serum separator tube (gold top) for subsequent determinations. ??Contact the Clinical Chemistry Laboratory if there are any qu estions. Chloride 101 98 - 107 mmol/L [facility] CO2 20 (L) 22 - 31 mmol/L [facility] Anion Gap 14 5 - 15 mmol/L [facility] Calcium 8.8 8.5 - 10.5 mg/dL [facility] Estimated GFR 87 >=60 mL/min/1.73 m?? [facility] Comment: The eGFR was calculated using the CKD-EP I equation. As with all creatinine based estimates of kidney function, eGFR values calculated with the CKD-EPI equation are not accurate in patients wi th acute kidney failure, extremes of body mass or the acutely ill. [email or web address] eGFR 101 >=60 mL/min/1.73 m?? [facility] Comment: The eGFR was calculated using the CKD-EP I equation. As with all creatinine based estimates of kidney function, eGFR values calculated with the CKD-EPI equation are not accurate in patients wi th acute kidney failure, extremes of body mass or the acutely ill. [email or web address] Specimen Anatomical Collection Method Collection Time Receive d Time (Source) Location / / Volume Laterality Blood specimen 12/07/2019 5:20 AM 020 5:37 (specimen) EDT AM EDT Resulting Agency Comment Spec In Lab Gretchen Yoon MD CHEMISTRY ORDERABLES Performing Organization Address [facility] [place] [address] Heparin (unfractionated) Level (12/06/2019 10:14 PM EDT) athologist Signature Heparin UFH 0.29 IU/mL [facility] Comment: Guidelines for therapeutic [...] Lagos MD HEMATOLOGY ORDERABLES Performing Organization Address [facility] [place] [address] [place] Head wo Contrast [...] For questions regarding this report, please contact [facility] number below. ? Electronically signed by: Merari Collins [facility] ([phone]), at 12/06/2019 10:06 PM Narrative 12/06/2019 10:06 [...] number below. Electronically signed by: Merari Collins [facility] ([phone]), at 12/06/2019 10:06 PM [place] Lagos MD IMG CT ORDERABLES (ABNORMAL) Hemogram (12/06/2019 4:20 PM EDT) Analysis Performed At Patho logist Time Signature WBC 10.4 (H) 4.0 - 9.5 [facility]ORY RBC 4.32 (L) 4.58 - [facility] DOV 5.54 [facility] x10(6)/[facility] LABORATORY Hemoglobin 12.5 (L) 13.7 - [facility] 16.5 gm/dL [facility] Hematocrit 38.4 (L) 40.5 - [facility] 48.5 % [facility] MCV 88.9 82.9 - [facility] 93.1 [facility] LAB[facility]ATORY MCH 28.9 27.5 - [facility] DOV 32.1 pg [facility] MCHC 32.6 32.0 - [facility] 35.7 gm/dL [facility] Platelets 194 145 - 357 [facility] x10(3)/[facility] LABORATORY RDWSD 46.9 (H) 36.0 - [facility] 45.0 [facility]ORY RDWCV 14.6 (H) 11.4 - [facility] 13.8 % [facility] MPV 11.9 7.6 - 12.9 [facility] LABORATORY nRBC % Auto 0.0 % [facility] nRBC Abs Auto 0.000 0.000 - [facility] DOV 0.000 [facility] x10(3)/[facility] LABORATORY Specimen Anatomical Collection Method Collection Time Receive d Time (Source) Location / / Volume Laterality Blood specimen 12/06/2019 4:20 PM 020 4:31 (specimen) EDT PM EDT Resulting Agency Comment Spec In Lab Gretchen Yoon MD HEMATOLOGY ORDERABLES Performing Organization Address City/State/[place] [address] Heparin (unfractionated) Level (12/06/2019 4:20 PM EDT) P athologist Signature Heparin UFH 0.30 IU/mL [facility]ORY Comment: Guidelines for therapeutic [...] Organization Address City/State/[place] [address] Heparin (unfractionated) Level (12/06/2019 10:02 AM EDT) athologist Signature Heparin UFH <0.04 IU/mL [facility]ATORY Comment: Guidelines for therapeutic [...] Organization Address City/[facility]/ZIP Code Phon e Number [address] Magnesium (12/06/2019 3:36 AM EDT) P athologist Signature Magnesium 0.86 0.69 - 1.07 [facility] mmol/L [facility] Specimen Anatomical Collection Method Collection Time Receive d Time (Source) Location / / Volume Laterality Blood specimen 12/06/2019 3:36 AM 020 3:45 (specimen) EDT AM EDT Resulting Agency Comment Spec In Lab Gretchen Yoon MD CHEMISTRY ORDERABLES Performing Organization Address City/[facility]/ZIP Code Phon e Number [address] (ABNORMAL) BMP w/fasting Glucose (12/06/2019 3:36 AM EDT) P athologist Signature Glucose 103 (H) 65 - 99 [facility] Fasting mg/dL [facility] Comment: ?Fasting* Glucose Interpretive C riteria [...] of Diabetes Mellitus, Position Statement from the [employer]. ??Diabete s Care, Volume 33, Supplement 1, Jul 2009 BUN 20 10 - 20 mg/dL [facility] Creatinine 0.88 0.80 - 1.50 mg/dL [facility] Sodium 136 135 - 145 mmol/L [facility] Potassium 4.0 3.5 - 5.0 mmol/L [facility] Comment: Please note: ??Patients with WBC >100,00 0 may have falsely elevated Potassium levels. ??For accurate Potassium quantif ication in these patients send serum separator tube (gold top) for subsequent determinations. ??Contact the Clinical Chemistry Laboratory if there are any qu estions. Chloride 103 98 - 107 mmol/L [facility] CO2 19 (L) 22 - 31 mmol/L [facility] Anion Gap 14 5 - 15 mmol/L [facility] Calcium 8.7 8.5 - 10.5 mg/dL [facility] Estimated GFR 85 >=60 mL/min/1.73 m?? [facility] Comment: The eGFR was calculated using the CKD-EP I equation. As with all creatinine based estimates of kidney function, eGFR values calculated with the CKD-EPI equation are not accurate in patients wi th acute kidney failure, extremes of body mass or the acutely ill. [email or web address] eGFR 99 >=60 mL/min/1.73 m?? [facility] Comment: The eGFR was calculated using the CKD-EP I equation. As with all creatinine based estimates of kidney function, eGFR values calculated with the CKD-EPI equation are not accurate in patients wi th acute kidney failure, extremes of body mass or the acutely ill. [email or web address] Specimen Anatomical Collection Method Collection Time Receive d Time (Source) Location / / Volume Laterality Blood specimen 12/06/2019 3:36 AM 020 3:45 (specimen) EDT AM EDT Resulting Agency Comment Spec In Lab Gretchen Yoon MD CHEMISTRY ORDERABLES Performing Organization Address City/State/ZIP Code Phon e Number [address] (ABNORMAL) Hemogram (12/06/2019 3:36 AM EDT) Analysis Performed At Patho logist Time Signature WBC 9.2 4.0 - 9.5 [facility] LAB[facility]ATORY RBC 3.99 (L) 4.58 - MELINA DOV 5.54 [facility] x10(6)/[facility] LABORATORY Hemoglobin 11.9 (L) 13.7 - [facility] 16.5 gm/dL [facility] Hematocrit 35.5 (L) 40.5 - [facility] 48.5 % [facility] MCV 89.0 82.9 - [facility] 93.1 [facility] LABORATORY MCH 29.8 27.5 - M[place]INA DOV 32.1 pg [facility] MCHC 33.5 32.0 - [place] DOV 35.7 gm/dL [facility] Platelets 164 145 - 357 [facility] x10(3)/[facility] LABORATORY RDWSD 47.6 (H) 36.0 - [place] DOV 45.0 [facility] LABORATORY RDWCV 14.7 (H) 11.4 - [facility] 13.8 % [facility] MPV 11.9 7.6 - 12.9 [facility] LABORATORY nRBC % Auto 0.0 % [facility] nRBC Abs Auto 0.000 0.000 - [facility] DOV 0.000 [facility] x10(3)/[facility] LABORATORY Specimen Anatomical Collection Method Collection Time Receive d Time (Source) Location / / Volume Laterality Blood specimen 12/06/2019 3:36 AM 020 3:45 (specimen) EDT AM EDT Resulting Agency Comment Spec In Lab Gretchen Yoon MD HEMATOLOGY ORDERABLES Performing Organization Address City/[facility]/ZIP Code Phon e Number [address] (ABNORMAL) Differential, Automated (12/05/2019 10:52 PM EDT) Patholo gist Method Time Signature Neutrophils % 61.9 % [facility] Neutr Abs (ANC) 6.02 1.70 - [facility] 6.10 [facility] x10(3)/[facility] LABORATORY Lymphocytes % 22.4 % [facility] Lymphocytes Abs 2.2 0.9 - 3.2 [facility] x10(3)/[facility] LABORATORY Monocytes % 10.4 % [facility] Monocyte Abs 1.0 (H) 0.3 - 0.9 [facility] x10(3)/[facility] LABORATORY Eosinophils % 4.1 % [facility] Eosinophils Abs 0.4 0.0 - 0.4 [facility] x10(3)/[facility] LABORATORY Basophils % 0.7 % [facility] Basophils Abs 0.1 0.0 - 0.1 [facility] x10(3)/[facility] LABORATORY Immature Gran % 0.50 % [facility] Comment: Immature granulocytes(IG's)percentage an d absolute count will include metamyelocytes, myelocytes, and promyelo cytes. Blood smears from CBCs yielding IG's will be scanned manually for concor dance. If this scan disagrees with the automated IG or if promyelocytes are not ed, a manual differential will be performed. Pita Gran Abs 0.05 (H) 0.00 - 0.04 x10(3)/[facility] LABORATORY Specimen Anatomical Collection Method Collection Time Receive d Time (Source) Location / / Volume Laterality Blood specimen 12/05/2019 10:52 0 (specimen) PM EDT 10:59 PM EDT Resulting Agency Comment Spec In Lab Mandi Barrera MD HEMATOLOGY ORDERABLES Performing Organization Address City/State/[place] [address] (ABNORMAL) Hemogram (12/05/2019 10:52 PM EDT) Analysis Performed At [facility] logist Time Signature WBC 9.7 (H) 4.0 - 9.5 [facility] x10(3)/[facility] LABORATORY RBC 4.07 (L) 4.58 - [place] DOV 5.54 [facility] x10(6)/[facility] LABORATORY Hemoglobin 11.9 (L) 13.7 - [place] 16.5 gm/dL [facility] Hematocrit 36.4 (L) 40.5 - [place] 48.5 % [facility] MCV 89.4 82.9 - [facility] 93.1 [facility] LABORATORY MCH 29.2 27.5 - [place] DOV 32.1 pg [facility] MCHC 32.7 32.0 - [place] DOV 35.7 gm/dL [facility] Platelets 167 145 - 357 [facility] x10(3)/[facility] LABORATORY RDWSD 47.7 (H) 36.0 - [facility] 45.0 [facility] LABORATORY RDWCV 14.6 (H) 11.4 - [facility] 13.8 % [facility]ATORY MPV 12.1 7.6 - 12.9 [facility] LABORATORY nRBC % Auto 0.0 % [facility] nRBC Abs Auto 0.000 0.000 - [facility] 0.[facility] x10(3)/[facility] LABORATORY Specimen Anatomical Collection Method Collection Time Receive d Time (Source) Location / / Volume Laterality Blood specimen 12/05/2019 10:52 0 (specimen) PM EDT 10:59 PM EDT Resulting Agency Comment Spec In Lab Mandi Barrera MD HEMATOLOGY ORDERABLES Performing Organization Address City/State/[place] [address] Heparin (unfractionated) Level (12/05/2019 10:52 PM EDT) P athologist Signature Heparin UFH <0.04 IU/mL [facility] LABORATORY Comment: Guidelines for therapeutic [...] Organization Address City/State/[place] [address] MRI Brain wwo Contrast [...] below. ? Electronically signed by: Merari Collins [facility] ([phone]), at 12/05/2019 10:02 PM Narrative 12/05/2019 10:02 [...] Time Signature WBC 8.7 4.0 - 9.5 [facility] x10(3)/[facility] LABORATORY RBC 4.17 (L) 4.58 - [facility] x[facility](6[facility] LABORATORY Hemoglobin 12.4 (L) 13.7 - [facility] 16.[facility] gm/dL [facility] LABORATORY Hematocrit 37.0 (L) 40.5 - [facility] 48[facility] % [facility] MCV 88.7 82.9 - [facility] 93[facility]1 [facility] LABORATORY MCH 29.7 27.5 - [facility] 32.1 pg [facility] LABORATORY MCHC 33.5 32.0 - [facility] 35.7 gm/dL [facility] LABORATORY Platelets 173 145 - 357 [facility] x10(3)/[facility] LABORATORY RDWSD 47.3 (H) 36.0 - [facility]0 [facility] LABORATORY RDWCV 14.6 (H) 11.4 - [facility] 13.8 % [facility] LABORATORY MPV 12.1 7.6 - 12.9 [facility] LABORATORY nRBC % Auto 0.0 % [facility] LABORATORY nRBC Abs Auto 0.000 0.000 - [facility] 0.000 [facility] x10(3)/[facility] LABORATORY Specimen Anatomical Collection Method Collection Time Receive d Time (Source) Location / / Volume Laterality Blood specimen 12/05/2019 1:00 PM 020 1:13 (specimen) EDT PM EDT Resulting Agency Comment Spec In Lab Gretchen Yoon MD HEMATOLOGY ORDERABLES Performing Organization Address City/State/[place] [address] EKG 12 Lead (12/05/2019 10:52 AM EDT) Component Value Ref Range Test Analysis Performed Pathologis t Method Time At Signature Ventricular rate 72 BPM MUSE SYSTEM Atrial Rate 72 BPM MUSE SYSTEM P-R Interval 138 ms MUSE SYSTEM QRS Duration 96 ms MUSE SYSTEM Q-T Interval 396 ms MUSE SYSTEM QTC Calculated 433 ms MUSE SYSTEM (Bezet) Calculated P [place] 65 degrees MUSE SYSTEM Calculated R [place] 13 degrees MUSE SYSTEM Calculated T [place] 0 degrees MUSE SYSTEM INTERPRETATION Sinus rhythm Occasional Premature ventricular complexe s MUSE SYSTEM Possible Inferior infarct (cited on or before 29-NOV-2019) Abnormal ECG When compared with ECG of 04-DEC-2019 10:43, Sinus rhythm has replaced Atrial fibrillation Vent. rate has decreased BY ??86 BPM Confirmed by MD Ceja Daniel ([id number]) on 12/05/2019 3:55:22 PM Specimen Anatomical Collection Method Collection Time Receive d Time (Source) Location / / Volume Laterality 12/05/2019 10:52 12/05/2019 3:55 AM EDT PM EDT Paris Lagos MD ECG ORDERABLES Performing Organization Address City/State/ZIP Code Phon e Number MUSE SYSTEM Duplex Study for DVT, Bilat legs (12/05/2019 7:00 AM EDT) Component Value Ref Test Analysis Performed At [facility] Range Method Time Signature VB Text Department: Vascular Surgery Lab VASCUBASE Report Patient: [id number] (ANGEL LUIS SALINAS) CPT: 00778 ICD10: I26.99 Referring Physician: GRETCHEN YOON ?? [...] athologist Signature Magnesium 0.87 0.69 - 1.07 [facility] mmol/L [facility] LABORATORY Specimen Anatomical Collection Method Collection Time Receive d Time (Source) Location / / Volume Laterality Blood specimen 12/05/2019 4:18 AM 020 4:31 (specimen) EDT AM EDT Resulting Agency Comment Spec In Lab Gretchen Yoon MD CHEMISTRY ORDERABLES Performing Organization Address City/[facility]/ZIP [facility] [place] [address] (ABNORMAL) BMP w/fasting Glucose (12/05/2019 4:18 AM EDT) P athologist Signature Glucose 104 (H) 65 - 99 [facility] Fasting mg/dL [facility] LABORATORY Comment: ?Fasting* Glucose Interpretive C riteria [...] of Diabetes Mellitus, Position Statement from the [employer]. ??Diabete s Care, Volume 33, Supplement 1, Jul 2009 BUN 21 (H) 10 - 20 mg/dL [facility] LABORATORY Creatinine 1.02 0.80 - 1.50 mg/dL [facility] LABORATORY Sodium 136 135 - 145 mmol/L [facility] LABORATORY Potassium 3.9 3.5 - 5.0 mmol/L [facility] LABORATORY Comment: Please note: ??Patients with WBC >100,00 0 may have falsely elevated Potassium levels. ??For accurate Potassium quantif ication in these patients send serum separator tube (gold top) for subsequent determinations. ??Contact the Clinical Chemistry Laboratory if there are any qu estions. Chloride 103 98 - 107 mmol/L [facility] LABORATORY CO2 21 (L) 22 - 31 mmol/L [facility] LABORATORY Anion Gap 12 5 - 15 mmol/L [facility] LABORATORY Calcium 8.8 8.5 - 10.5 mg/dL [facility] LABORATORY Estimated GFR 73 >=60 mL/min/1.73 m?? [facility] LABORATORY Comment: The eGFR was calculated using the CKD-EP I equation. As with all creatinine based estimates of kidney function, eGFR values calculated with the CKD-EPI equation are not accurate in patients wi th acute kidney failure, extremes of body mass or the acutely ill. [email or web address]/[facility] eGFR 84 >=60 mL/min/1.73 m?? [facility] LABORATORY Comment: The eGFR was calculated using the CKD-EP I equation. As with all creatinine based estimates of kidney function, eGFR values calculated with the CKD-EPI equation are not accurate in patients wi th acute kidney failure, extremes of body mass or the acutely ill. [email or web address]/[facility] Specimen Anatomical Collection Method Collection Time Receive d Time (Source) Location / / Volume Laterality Blood specimen 12/05/2019 4:18 AM 020 4:31 (specimen) EDT AM EDT Resulting Agency Comment Spec In Lab Gretchen Yoon MD CHEMISTRY ORDERABLES Performing Organization Address City/State/[place] [address] (ABNORMAL) Hemogram (12/05/2019 4:18 AM EDT) Analysis Performed At Patho logist Time Signature WBC 8.6 4.0 - 9.5 [facility] x10(3)/[facility] LABORATORY RBC 4.28 (L) 4.58 - [facility] DOV 5.54 [facility] x10(6)/[facility] LABORATORY Hemoglobin 12.4 (L) 13.7 - [facility] 16.5 gm/dL [facility] LABORATORY Hematocrit 37.3 (L) 40.5 - [facility] 48.5 % [facility] LABORATORY MCV 87.1 82.9 - [facility] 93[facility]1 [facility] LABORATORY MCH 29.0 27.5 - [facility] 32.1 pg [facility] LABORATORY MCHC 33.2 32.0 - [facility] 35.7 gm/dL [facility] LABORATORY Platelets 163 145 - 357 [facility] x10(3)/[facility] LABORATORY RDWSD 46.4 (H) 36.0 - [facility] 45.0 [facility] LABORATORY RDWCV 14.4 (H) 11.4 - [facility] 13.8 % [facility] LABORATORY MPV 11.7 7.6 - 12.9 [facility] LABORATORY nRBC % Auto 0.0 % [facility] LABORATORY nRBC Abs Auto 0.000 0.000 - [facility] 0.000 [facility] x10(3)/[facility] LABORATORY Specimen Anatomical Collection Method Collection Time Receive d Time (Source) Location / / Volume Laterality Blood specimen 12/05/2019 4:18 AM 020 4:31 (specimen) EDT AM EDT Resulting Agency Comment Spec In Lab Gretchen Yoon MD HEMATOLOGY ORDERABLES Performing Organization Address City/State/[place] [address] Cardiac for Morphology [...] For questions regarding this report, please contact [facility] number below. ? Electronically signed by: Roselyn Luciano, [facility] ([phone]), at 12/04/2019 6:16 PM Narrative 12/04/2019 6:16 [...] from neck/greatest puja meter to back wall: TAJIK 91, CAU 13: ??19 mm CORTES ??1, [...] from neck/greatest puja meter to back wall: TAJIK 91, CAU 13: 19 mm CORTES 1, [...] WBC 8.9 4.0 - 9.5 [facility] DOV x10(3)/[facility] LABORATORY RBC 4.69 4.58 - [facility] DOV 5.54 [facility] x10(6)/[facility] LABORATORY Hemoglobin 13.5 (L) 13.7 - [facility] DOV 16.5 gm/dL [facility] LABORATORY Hematocrit 41.7 40.5 - [facility] DOV 48.5 % [facility] LABORATORY MCV 88.9 82.9 - [facility] DOV 93.1 fL [facility] LABORATORY MCH 28.8 27.5 - [facility] DOV 32.1 pg [facility] LABORATORY MCHC 32.4 32.0 - [facility] DOV 35.7 gm/dL [facility] LABORATORY Platelets 196 145 - 357 [facility] DOV x10(3)/[facility] LABORATORY RDWSD 46.7 (H) 36.0 - [facility] MONAE 45.0 [facility] LABORATORY RDWCV 14.5 (H) 11.4 - [facility] MONAE 13.8 % [facility] LABORATORY MPV 12.1 7.6 - 12.9 M[facility] MONAE [facility] LABORATORY nRBC % Auto 0.0 % [facility] LABORATORY nRBC Abs Auto 0.000 0.000 - [facility] MONAE 0.000 [facility] x10(3)/[facility] LABORATORY Specimen Anatomical Collection Method Collection Time Receive d Time (Source) Location / / Volume Laterality Blood specimen 12/04/2019 12:55 0 1:06 (specimen) PM EDT PM EDT Resulting Agency Comment Spec In Lab Gretchen Yoon MD HEMATOLOGY ORDERABLES Performing Organization Address City/[facility]/[place] [address] EKG 12 Lead (12/04/2019 10:43 AM EDT) Component Value Ref Range Test Analysis Performed Pathologis t Method Time At Signature Ventricular rate 158 BPM MUSE SYSTEM Atrial Rate 102 BPM MUSE SYSTEM QRS Duration 92 ms MUSE SYSTEM Q-T Interval 294 ms MUSE SYSTEM QTC Calculated 476 ms MUSE SYSTEM (Bezet) Calculated R [place] 17 degrees MUSE SYSTEM Calculated T [place] 90 degrees MUSE SYSTEM INTERPRETATION Atrial fibrillation with rapid ventricular response MUSE SYSTEM Possible Inferior infarct (cited on or before 29-NOV-2019) Abnormal ECG When compared with ECG of 30-NOV-2019 21:07, Atrial fibrillation has replaced Sinus rhythm Vent. rate has increased BY ??65 BPM Confirmed by MD Brenna, Faustino ([id number]) on 12/05/2019 8:59:44 AM Specimen Anatomical Collection Method Collection Time Receive d Time (Source) Location / / Volume Laterality 12/04/2019 10:43 12/05/2019 8:59 AM EDT AM EDT Gretchen Yoon MD ECG ORDERABLES Performing Organization Address City/State/ZIP Code Phon e Number MUSE SYSTEM (ABNORMAL) Magnesium (12/04/2019 4:28 AM EDT) P athologist Signature Magnesium 1.17 (H) 0.69 - 1.07 [facility] mmol/L [facility] LABORATORY Specimen Anatomical Collection Method Collection Time Receive d Time (Source) Location / / Volume Laterality Blood specimen 12/04/2019 4:28 AM 020 4:40 (specimen) EDT AM EDT Resulting Agency Comment Spec In Lab Gretchen Yoon MD CHEMISTRY ORDERABLES Performing Organization Address City/State/[place] [address] (ABNORMAL) BMP w/fasting Glucose (12/04/2019 4:28 AM EDT) athologist Signature Glucose 108 (H) 65 - 99 [facility] Fasting mg/dL [facility] LABORATORY Comment: ?Fasting* Glucose Interpretive C riteria [...] of Diabetes Mellitus, Position Statement from the [employer]. ??Diabete s Care, Volume 33, Supplement 1, Jul 2009 BUN 19 10 - 20 mg/dL [facility] LABORATORY Creatinine 0.89 0.80 - 1.50 mg/dL [facility] LABORATORY Sodium 135 135 - 145 mmol/L [facility] LABORATORY Potassium 4.2 3.5 - 5.0 mmol/L [facility] LABORATORY Comment: Please note: ??Patients with WBC >100,00 0 may have falsely elevated Potassium levels. ??For accurate Potassium quantif ication in these patients send serum separator tube (gold top) for subsequent determinations. ??Contact the Clinical Chemistry Laboratory if there are any qu estions. Chloride 104 98 - 107 mmol/L [facility] LABORATORY CO2 19 (L) 22 - 31 mmol/L [facility] LABORATORY Anion Gap 12 5 - 15 mmol/L [facility] LABORATORY Calcium 8.5 8.5 - 10.5 mg/dL [facility] LABORATORY Estimated GFR 85 >=60 mL/min/1.73 m?? [facility] LABORATORY Comment: The eGFR was calculated using the CKD-EP I equation. As with all creatinine based estimates of kidney function, eGFR values calculated with the CKD-EPI equation are not accurate in patients wi th acute kidney failure, extremes of body mass or the acutely ill. [email or web address]/[facility] eGFR 98 >=60 mL/min/1.73 m?? [facility] LABORATORY Comment: The eGFR was calculated using the CKD-EP I equation. As with all creatinine based estimates of kidney function, eGFR values calculated with the CKD-EPI equation are not accurate in patients wi th acute kidney failure, extremes of body mass or the acutely ill. [email or web address]/[facility] Specimen Anatomical Collection Method Collection Time Receive d Time (Source) Location / / Volume Laterality Blood specimen 12/04/2019 4:28 AM 020 4:40 (specimen) EDT AM EDT Resulting Agency Comment Spec In Lab Gretchen Yoon MD CHEMISTRY ORDERABLES Performing Organization Address City/State/[place] [address] (ABNORMAL) Hemogram (12/04/2019 4:28 AM EDT) Analysis Performed At Patho logist Time Signature WBC 7.8 4.0 - 9.5 [facility] x10(3)/[facility] LABORATORY RBC 4.10 (L) 4.58 - [facility] 5.54 [facility] x10(6)/[facility] LABORATORY Hemoglobin 12.0 (L) 13.7 - [facility] 16.5 gm/dL [facility] LABORATORY Hematocrit 36.5 (L) 40.5 - [facility] 48.5 % [facility] LABORATORY MCV 89.0 82.9 - [facility] 93.[facility] fL [facility] LABORATORY MCH 29.3 27.5 - [facility] MONAE 32.1 pg [facility] LABORATORY MCHC 32.9 32.0 - [facility] MONAE 35.7 gm/dL [facility] LABORATORY Platelets 151 145 - 357 [facility] VILLANUEVACK x10(3)/[facility] LABORATORY RDWSD 46.9 (H) 36.0 - [facility] MONAE 45.0 [facility] LABORATORY RDWCV 14.4 (H) 11.4 - M[facility] MONAE 13.8 % [facility] LABORATORY MPV 12.2 7.6 - 12.9 [facility] MONAE fL [facility] LABORATORY nRBC % Auto 0.0 % [facility] LABORATORY nRBC Abs Auto 0.000 0.000 - [facility] MONAE 0.000 [facility] x10(3)/[facility] LABORATORY Specimen Anatomical Collection Method Collection Time Receive d Time (Source) Location / / Volume Laterality Blood specimen 12/04/2019 4:28 AM 020 4:40 (specimen) EDT AM EDT Resulting Agency Comment Spec In Lab Gretchen Yoon MD HEMATOLOGY ORDERABLES Performing Organization Address City/[facility]/ZIP Code Phon e Number [address] Potassium (12/03/2019 7:55 PM EDT) athologist Signature Potassium 3.9 3.5 - 5.0 [facility] mmol/L [facility] LABORATORY Comment: Please note: ??Patients with WBC [...] Organization Address City/[facility]/ZIP [facility] [place] Number [address] Potassium (12/03/2019 1:57 PM EDT) athologist Signature Potassium 3.7 3.5 - 5.0 [facility] mmol/L [facility] LABORATORY Comment: Please note: ??Patients with WBC [...] Organization Address City/State/[place] [address] (ABNORMAL) Hemogram (12/03/2019 1:57 PM EDT) Analysis Performed At Patho logist Time Signature WBC 8.8 4.0 - 9.5 [facility] DOV x10(3)/[facility] LABORATORY RBC 4.27 (L) 4.58 - [facility] DOV 5.54 [facility] x10(6)/[facility] LABORATORY Hemoglobin 12.5 (L) 13.7 - [facility] DOV 16.5 gm/dL [facility] LABORATORY Hematocrit 37.5 (L) 40.5 - [facility] DOV 48.5 % [facility] LABORATORY MCV 87.8 82.9 - [facility] DOV 93.1 [facility] LABORATORY MCH 29.3 27.5 - [facility] DOV 32.1 pg [facility] LABORATORY MCHC 33.3 32.0 - [facility] DOV 35.7 gm/dL [facility] LABORATORY Platelets 158 145 - 357 [facility] DOV x10(3)/[facility] LABORATORY RDWSD 46.9 (H) 36.0 - [facility] DOV 45.0 [facility] LABORATORY RDWCV 14.5 (H) 11.4 - [facility] DOV 13.8 % [facility] LABORATORY MPV 12.2 7.6 - 12.9 [facility] DOV [facility] LABORATORY nRBC % Auto 0.0 % [facility] LABORATORY nRBC Abs Auto 0.000 0.000 - [facility] 0.000 [facility] x[facility](3[facility] LABORATORY Specimen Anatomical Collection Method Collection Time Receive d Time (Source) Location / / Volume Laterality Blood specimen 12/03/2019 1:57 PM 020 2:21 (specimen) EDT PM EDT Resulting Agency Comment Spec In Lab Gretchen Yoon MD HEMATOLOGY ORDERABLES Performing Organization Address City/State/ZIP Code Phon e Number [address] Magnesium (12/03/2019 4:02 AM EDT) P athologist Signature Magnesium 0.79 0.69 - 1.07 [facility] mmol/L [facility] LABORATORY Specimen Anatomical Collection Method Collection Time Receive d Time (Source) Location / / Volume Laterality Blood specimen 12/03/2019 4:02 AM 020 4:16 (specimen) EDT AM EDT Resulting Agency Comment Spec In Lab Gretchen Yoon MD CHEMISTRY ORDERABLES Performing Organization Address City/State/[place] [address] (ABNORMAL) BMP w/fasting Glucose (12/03/2019 4:02 AM EDT) P athologist Signature Glucose 100 (H) 65 - 99 [facility] Fasting mg/dL [facility] LABORATORY Comment: ?Fasting* Glucose Interpretive C riteria [...] of Diabetes Mellitus, Position Statement from the [employer]. ??Diabete s Care, Volume 33, Supplement 1, Jul 2009 BUN 17 10 - 20 mg/dL [facility] LABORATORY Creatinine 0.95 0.80 - 1.50 mg/dL [facility] LABORATORY Sodium 136 135 - 145 mmol/L [facility] LABORATORY Potassium 3.4 (L) 3.5 - 5.0 mmol/L [facility] LABORATORY Comment: Please note: ??Patients with WBC >100,00 0 may have falsely elevated Potassium levels. ??For accurate Potassium quantif ication in these patients send serum separator tube (gold top) for subsequent determinations. ??Contact the Clinical Chemistry Laboratory if there are any qu estions. Chloride 103 98 - 107 mmol/L [facility] LABORATORY CO2 18 (L) 22 - 31 mmol/L [facility] LABOR[facility] Anion Gap 15 5 - 15 mmol/L [facility] LABORATORY Calcium 8.3 (L) 8.5 - 10.5 mg/dL [facility] LABORATORY Estimated GFR 79 >=60 mL/min/1.73 m?? [facility] LABORATORY Comment: The eGFR was calculated using the CKD-EP I equation. As with all creatinine based estimates of kidney function, eGFR values calculated with the CKD-EPI equation are not accurate in patients wi th acute kidney failure, extremes of body mass or the acutely ill. http://Evertale/[facility] eGFR 92 >=60 mL/min/1.73 m?? [facility] LABORATORY Comment: The eGFR was calculated using the CKD-EP I equation. As with all creatinine based estimates of kidney function, eGFR values calculated with the CKD-EPI equation are not accurate in patients wi th acute kidney failure, extremes of body mass or the acutely ill. [email or web address] Specimen Anatomical Collection Method Collection Time Receive d Time (Source) Location / / Volume Laterality Blood specimen 12/03/2019 4:02 AM 020 4:16 (specimen) EDT AM EDT Resulting Agency Comment Spec In Lab Gretchen Yoon MD CHEMISTRY ORDERABLES Performing Organization Address City/State/[place] [address] (ABNORMAL) Hemogram (12/03/2019 4:02 AM EDT) Analysis Performed At Patho logist Time Signature WBC 9.1 4.0 - 9.5 [facility] x10(3)/[facility] LABORATORY RBC 4.01 (L) 4.58 - MEL[facility] MARSHDOV 5.54 [facility] x10(6)/[facility] LABORATORY Hemoglobin 11.8 (L) 13.7 - [facility] 16.[facility] gm/dL [facility] LABORATORY Hematocrit 35.6 (L) 40.5 - [facility] 48.5 % [facility] LABORATORY MCV 88.8 82.9 - [facility] 93.1 [facility] LABORATORY MCH 29.4 27.5 - [facility] 32.1 pg [facility] LABORATORY MCHC 33.1 32.0 - [facility] 35.[facility] gm/dL [facility] LABORATORY Platelets 130 (L) 145 - 357 [facility] x10(3)/[facility] LABORATORY RDWSD 46.6 (H) 36.0 - [facility] 45.0 [facility] LABORATORY RDWCV 14.4 (H) 11.4 - [facility] 13.8 % [facility] LABORATORY MPV 12.4 7.6 - 12.9 [facility] LABORATORY nRBC % Auto 0.0 % [facility] LABORATORY nRBC Abs Auto 0.000 0.000 - [facility] 0.[facility] x10(3)/[facility] LABORATORY Specimen Anatomical Collection Method Collection Time Receive d Time (Source) Location / / Volume Laterality Blood specimen 12/03/2019 4:02 AM 020 4:16 (specimen) EDT AM EDT Resulting Agency Comment Spec In Lab Gretchen Yoon MD HEMATOLOGY ORDERABLES Performing Organization Address City/State/[place] [address] XR Chest One View [...] Signature WBC 10.6 (H) 4.0 - 9.5 [facility] LABORATORY RBC 4.00 (L) 4.58 - [facility] DOV 5.54 [facility] x10(6)/[facility] LABORATORY Hemoglobin 11.9 (L) 13.7 - [facility] 16.5 gm/dL [facility] LABORATORY Hematocrit 35.7 (L) 40.5 - [facility] 48.5 % [facility] LABORATORY MCV 89.3 82.9 - [facility] 93.1 [facility] LABORATORY MCH 29.8 27.5 - [facility] 32.1 pg [facility] LABORATORY MCHC 33.3 32.0 - [facility] 35.7 gm/dL [facility] LABORATORY Platelets 120 (L) 145 - 357 [facility] x10(3)/[facility] LABORATORY RDWSD 47.5 (H) 36.0 - [facility] 45.0 [facility] LABORATORY RDWCV 14.6 (H) 11.4 - [facility] 13.8 % [facility] LABORATORY MPV 12.0 7.6 - 12.9 [facility] LABORATORY nRBC % Auto 0.0 % [facility] LABOR[facility]ORY nRBC Abs Auto 0.000 0.000 - [facility] 0.000 [facility] x10(3)/[facility] LABORATORY Specimen Anatomical Collection Method Collection Time Receive d Time (Source) Location / / Volume Laterality Blood specimen 12/02/2019 12:50 0 1:22 (specimen) PM EDT PM EDT Resulting Agency Comment Spec In Lab Gretchen Yoon MD HEMATOLOGY ORDERABLES Performing Organization Address City/State/[place] [address] Blue Tube HOLD (12/02/2019 4:55 AM EDT) P athologist Signature Blue Hold Sample in [facility] lab. [facility] LABORATORY Specimen Anatomical Collection Method Collection Time Receive d Time (Source) Location / / Volume Laterality Blood specimen Venous Draw / 12/02/2019 4:55 AM 2019 5:03 (specimen) Unknown EDT AM EDT Darrell Glasgow MD HEMATOLOGY ORDERABLES Performing Organization Address City/State/ZIP Code Phon e Number [address] Magnesium (12/02/2019 4:55 AM EDT) athologist Signature Magnesium 0.85 0.69 - 1.07 [facility] mmol/L [facility] LABORATORY Specimen Anatomical Collection Method Collection Time Receive d Time (Source) Location / / Volume Laterality Blood specimen 12/02/2019 4:55 AM 020 5:02 (specimen) EDT AM EDT Resulting Agency Comment Spec In Lab Gretchen Yoon MD CHEMISTRY ORDERABLES Performing Organization Address City/State/[place] [address] (ABNORMAL) BMP w/fasting Glucose (12/02/2019 4:55 AM EDT) athologist Signature Glucose 114 (H) 65 - 99 [facility] Fasting mg/dL [facility] LABORATORY Comment: ?Fasting* Glucose Interpretive C riteria [...] of Diabetes Mellitus, Position Statement from the [employer]. ??Diabete s Care, Volume 33, Supplement 1, Jul 2009 BUN 13 10 - 20 mg/dL [facility] LABORATORY Creatinine 0.93 0.80 - 1.50 mg/dL [facility] LABORATORY Sodium 135 135 - 145 mmol/L [facility] LABORATORY Potassium 3.7 3.5 - 5.0 mmol/L [facility] LABORATORY Comment: Please note: ??Patients with WBC >100,00 0 may have falsely elevated Potassium levels. ??For accurate Potassium quantif ication in these patients send serum separator tube (gold top) for subsequent determinations. ??Contact the Clinical Chemistry Laboratory if there are any qu estions. Chloride 105 98 - 107 mmol/L [facility] LABORATORY CO2 18 (L) 22 - 31 mmol/L [facility] Anion Gap 12 5 - 15 mmol/L [facility] LABORATORY Calcium 8.1 (L) 8.5 - 10.5 mg/dL [facility] LABORATORY Estimated GFR 81 >=60 mL/min/1.73 m?? [facility] LABORATORY Comment: The eGFR was calculated using the CKD-EP I equation. As with all creatinine based estimates of kidney function, eGFR values calculated with the CKD-EPI equation are not accurate in patients wi th acute kidney failure, extremes of body mass or the acutely ill. [email or web address]/[facility] PUR[facility]LLnkf eGFR 94 >=60 mL/min/1.73 m?? [facility] LABORATORY Comment: The eGFR was calculated using the CKD-EP I equation. As with all creatinine based estimates of kidney function, eGFR values calculated with the CKD-EPI equation are not accurate in patients wi th acute kidney failure, extremes of body mass or the acutely ill. [email or web address] Specimen Anatomical Collection Method Collection Time Receive d Time (Source) Location / / Volume Laterality Blood specimen 12/02/2019 4:55 AM 020 5:02 (specimen) EDT AM EDT Resulting Agency Comment Spec In Lab Gretchen Yoon MD CHEMISTRY ORDERABLES Performing Organization Address City/State/[place] [address] (ABNORMAL) Hemogram (12/02/2019 4:55 AM EDT) Analysis Performed At Patho logist Time Signature WBC 9.3 4.0 - 9.5 [facility] LABORATORY RBC 3.71 (L) 4.58 - [place] DOV 5.54 [facility] x10(6)/[facility] LABORATORY Hemoglobin 10.8 (L) 13.7 - [facility] 16.5 gm/dL [facility] LABORATORY Hematocrit 33.1 (L) 40.5 - [facility] 48.5 % [facility] LABORATORY MCV 89.2 82.9 - [facility] 93.1 [facility] LABORATORY MCH 29.1 27.5 - [facility] 32.1 pg [facility] LABORATORY MCHC 32.6 32.0 - [facility] 35.7 gm/dL [facility] LABORATORY Platelets 93 (L) 145 - 357 [facility] x10(3)/[facility] LABORATORY RDWSD 47.1 (H) 36.0 - [facility] 45.0 [facility] LABORATORY RDWCV 14.6 (H) 11.4 - [facility] 13.8 % [facility] LABORATORY MPV 11.7 7.6 - 12.9 [facility] LABORATORY nRBC % Auto 0.0 % [facility]ATORY nRBC Abs Auto 0.000 0.000 - [facility] 0.[facility] x10(3)/[facility] LABORATORY Specimen Anatomical Collection Method Collection Time Receive d Time (Source) Location / / Volume Laterality Blood specimen 12/02/2019 4:55 AM 020 5:02 (specimen) EDT AM EDT Resulting Agency Comment Spec In Lab Gretchen Yoon MD HEMATOLOGY ORDERABLES Performing Organization Address City/State/[place] [address] Transfuse 1 unit platelets, [...] For questions regarding this report, please contact [facility] number below. ? Electronically signed by: Angel Luis Barboza MD, [facility] ([phone]), at 12/01/2019 8:02 PM Narrative 12/01/2019 8:02 [...] For questions regarding this report, please contact [facility] number below. Electronically signed by: Angel Luis Barboza MD, [facility] ([phone]), at 12/01/2019 8:02 PM Gretchen Yoon MD IMG MRI ORDERABLES Prepare Platelets, Apheresis (12/01/2019 6:20 PM EDT) P athologist Signature Dispensed? Yes [facility] LABORATORY Specimen Anatomical Collection Method Collection Time Receive d Time (Source) Location / / Volume Laterality Blood specimen 12/01/2019 6:20 PM 020 6:18 (specimen) EDT PM EDT Gretchen Yoon MD BLOOD BANK ORDERABLES Performing Organization Address City/[facility]/[place] [address] Duplex for DVT, Arm, Unilat (12/01/2019 5:08 PM EDT) Component Value Ref Test Analysis Performed At Patholo gist Range Method Time Signature VB Text Department: Vascular Surgery Lab VASCUBASE Report Patient: [id number] (ANGEL LUIS SALINAS) CPT: 15769 ICD10: R60.0 Referring Physician: GRETCHEN YOON ?? [...] For questions regarding this report, please contact [facility] number below. ? Electronically signed by: Merari Collins, [facility] ([phone]), at 12/01/2019 3:53 PM Narrative 12/01/2019 3:53 PM EDT EXAMINATION: CT HEAD WO CONTRAST (GENERIC) CLINICAL HISTORY: Headache, intracranial hemorrhage suspected Serial CT scan: please assess for propag ation of known ICH noted on prior Head CT/imaging. TECHNIQUE: CT head performed without intravenous co ntrast administration. COMPARISON: Head CT 11/30/2019. CT [facility] [place] 11/01. FINDINGS: Ventricles are normal in size. Basal cis terns are patent. Unchanged hyperdense 2.3 x 0.7 x 0.6 cm tubular hemorrhage projecting along the course of the left optic tract (axial se [facility] 2 image 16), consistent with intraparenchymal [...] Head CT 11/30/2019. CT [facility] [place] 11/01. FINDINGS: Ventricles are normal [...] Scan, Peripheral Blood (12/01/2019 12:51 PM EDT) [facility] Method Time Signature Plat Estimate Decreased [facility] RBC Morphology Normal [facility] Giant Less than 1 /HPF [facility] Platelets [facility] LABORATORY Specimen Anatomical Collection Method Collection Time Receive d Time (Source) Location / / Volume Laterality Blood specimen 12/01/2019 12:51 0 1:05 (specimen) PM EDT PM EDT Resulting Agency Comment Spec In Lab Riki Stevens MD HEMATOLOGY ORDERABLES Performing Organization Address City/State/[place] [address] (ABNORMAL) Differential, Automated (12/01/2019 12:51 PM EDT) [facility] Method Time Signature Neutrophils % 74.9 % [facility] Neutr Abs (ANC) 6.34 (H) 1.70 - [facility] 6.10 [facility] x10(3)/[facility] LABORATORY Lymphocytes % 11.4 % [facility] LABOR[facility]ORY Lymphocytes Abs 1.0 0.9 - 3.2 [facility] x10(3)/[facility] LABORATORY Monocytes % 12.4 % [facility] LABOR[facility]ORY Monocyte Abs 1.0 (H) 0.3 - 0.9 [facility] x10(3)/[facility] LABORATORY Eosinophils % 0.4 % [facility] Eosinophils Abs 0.0 0.0 - 0.4 [facility] x10(3)/[facility] LABORATORY Basophils % 0.4 % [facility] Basophils Abs 0.0 0.0 - 0.1 [facility] x10(3)/[facility] LABORATORY Immature Gran % 0.50 % [facility] Comment: Immature granulocytes(IG's)percentage an d absolute count will include metamyelocytes, myelocytes, and promyelo cytes. Blood smears from CBCs yielding IG's will be scanned manually for ana nagy. If this scan disagrees with the automated IG or if promyelocytes are not ed, a manual differential will be performed. Pita Gran Abs 0.04 0.00 - 0.04 x10(3)/[facility] MAR Y [facility] LABORATORY Specimen Anatomical Collection Method Collection Time Receive d Time (Source) Location / / Volume Laterality Blood specimen 12/01/2019 12:51 0 1:05 (specimen) PM EDT PM EDT Resulting Agency Comment Spec In Lab Riki Stevens MD HEMATOLOGY ORDERABLES Performing Organization Address City/State/ZIP Code Phon e Number [place] [id number]OS[address] Drive (ABNORMAL) Hemogram (12/01/2019 12:51 PM EDT) Analysis Performed At Patho logist Time Signature WBC 8.4 4.0 - 9.5 [facility] x[facility](3[facility] LABORATORY RBC 3.69 (L) 4.58 - [facility] 5.54 [facility] x10(6)/[facility] LABORATORY Hemoglobin 10.8 (L) 13.7 - [facility] 16.5 gm/dL [facility] LABORATORY Hematocrit 32.4 (L) 40.5 - [facility] 48.5 % [facility] LABORATORY MCV 87.8 82.9 - [facility] 93.1 [facility] LABORATORY MCH 29.3 27.5 - [place] DOV 32.1 pg [facility] LABORATORY MCHC 33.3 32.0 - [facility] DOV 35.7 gm/dL [facility] LABORATORY Platelets 72 (L) 145 - 357 [facility] LABORATORY RDWSD 47.2 (H) 36.0 - [facility] 45.0 [facility] LABORATORY RDWCV 14.6 (H) 11.4 - [facility] DOV 13.8 % [facility] LABORATORY MPV 12.2 7.6 - 12.9 [facility] LABORATORY nRBC % Auto 0.0 % [facility] LABORATORY nRBC Abs Auto 0.000 0.000 - [facility] 0.000 [facility] x10(3)/[facility] LABORATORY Specimen Anatomical Collection Method Collection Time Receive d Time (Source) Location / / Volume Laterality Blood specimen 12/01/2019 12:51 0 1:05 (specimen) PM EDT PM EDT Resulting Agency Comment Spec In Lab Riki Stevens MD HEMATOLOGY ORDERABLES Performing Organization Address City/State/ZIP Code Phon e Number [address] (ABNORMAL) Coox2 (12/01/2019 11:42 AM EDT) Analysis Performed At Patho logist Time Signature pO2 Coox 30 mmHg [facility] LABORATORY Hgb Blood Gas 11.6 (L) 13.7 - [facility] 16.5 gm/dL [facility] LABORATORY O2HB Coox 60.8 % [facility] LABORATORY COHB Coox 0.6 % [facility] LABORATORY Comment: Nonsmokers: 0.5-1.5% COHB Smokers: Variable, but usually less than 10% Toxic: 20-30% COHB Lethal: Greater than 60% COHB METHB Coox 0.6 <=1.5 % [facility] LABORATORY Source Coox Mixed Venous [facility] LABORATORY Specimen Anatomical Collection Method Collection Time Receive d Time (Source) Location / / Volume Laterality Blood specimen 12/01/2019 11:42 0 (specimen) AM EDT 11:42 AM EDT Gretchen Yoon MD CHEMISTRY ORDERABLES Performing Organization Address City/State/[place] [address] Sedimentation rate (12/01/2019 3:55 AM EDT) P athologist Signature Sed Rate 25 3 - 46 [facility] mm/hr [facility] LABORATORY Comment: Effective June 11, 2019 new [...] Organization Address City/[facility]/[place] [address] (ABNORMAL) CRP, acute inflammation (12/01/2019 3:55 AM EDT) P athologist Signature CRP 92.5 (H) <=4.9 mg/L [facility] LABORATORY Specimen Anatomical Collection Method Collection Time Receive d Time (Source) Location / / Volume Laterality Blood specimen Venous Draw / 12/01/2019 3:55 AM 2019 4:06 (specimen) Unknown EDT AM EDT Resulting Agency Comment Spec In Lab Rossy Winn MD CHEMISTRY ORDERABLES Performing Organization Address City/[facility]/ZIP Code Phon e Number [address] ABORH Recheck Status (12/01/2019 3:55 AM EDT) [facility] Method Time Signature ABORH Recheck Order Placed [facility] LABORATORY ABORH Type Complete [facility] LABORATORY Specimen Anatomical Collection Method Collection Time Receive d Time (Source) Location / / Volume Laterality Blood specimen 12/01/2019 3:55 AM 020 4:15 (specimen) EDT AM EDT Resulting Agency Comment Spec In Lab Lewis Gee MD BLOOD BANK ORDERABLES Performing Organization Address City/[facility]/[place] [address] Antibody screen (12/01/2019 3:55 AM EDT) Patholo gist Method Time Signature Ab Screen Negative [facility] LABORATORY Expires at 12/04/2019 [facility] [id number] on: [facility] LABORATORY Specimen Anatomical Collection Method Collection Time Receive d Time (Source) Location / / Volume Laterality Blood specimen 12/01/2019 3:55 AM 020 4:15 (specimen) EDT AM EDT Resulting Agency Comment Spec In Lab Lewis Gee MD BLOOD BANK ORDERABLES Performing Organization Address City/State/[place] [address] ABO/Rh Typing (12/01/2019 3:55 AM EDT) athologist Signature ABORh Type AB Pos [facility] LABORATORY Specimen Anatomical Collection Method Collection Time Receive d Time (Source) Location / / Volume Laterality Blood specimen 12/01/2019 3:55 AM 020 4:15 (specimen) EDT AM EDT Resulting Agency Comment Spec In Lab Lewis Gee MD BLOOD BANK ORDERABLES Performing Organization Address City/[facility] [place] [address] (ABNORMAL) Troponin (12/01/2019 3:55 AM EDT) athologist Signature Troponin-T 4.35 (H) 0.00 - [facility] 0.00 ng/mL [facility] LABORATORY Comment: result rechecked-slw The 99th percentile for Troponin T is le ss than 0.01 ng/mL, any detectable cTnT concentration using this assay should be considered elevated. According to the third universal definit ion of myocardial infarction the following criteria with a clinical prese ntation consistent with acute myocardial ischemia meets the diagnosis for a myocardial infarction (OK). Detection of a rise and/or fall of [...] additional sample may be indicated. Reference: Third [place] Definition of Myocardial Infarction. Journal of the [employer] 2012;60:1581-98 Specimen Anatomical Collection Method Collection Time Receive d Time (Source) Location / / Volume Laterality Blood specimen 12/01/2019 3:55 AM 020 4:00 (specimen) EDT AM EDT Resulting Agency Comment Spec In Lab Gretchen Yoon MD CHEMISTRY ORDERABLES Performing Organization Address City/State/ZIP Code Phon e Number [address] Magnesium (12/01/2019 3:55 AM EDT) P athologist Signature Magnesium 0.96 0.69 - 1.07 [facility] mmol/L [facility] LABORATORY Specimen Anatomical Collection Method Collection Time Receive d Time (Source) Location / / Volume Laterality Blood specimen 12/01/2019 3:55 AM 020 4:00 (specimen) EDT AM EDT Resulting Agency Comment Spec In Lab Gretchen Yoon MD CHEMISTRY ORDERABLES Performing Organization Address City/[facility]/[place] [address] (ABNORMAL) BMP w/fasting Glucose (12/01/2019 3:55 AM EDT) P athologist Signature Glucose 148 (H) 65 - 99 [facility] Fasting mg/dL [facility] LABORATORY Comment: ?Fasting* Glucose Interpretive C riteria [...] of Diabetes Mellitus, Position Statement from the [employer]. ??Diabete s Care, Volume 33, Supplement 1, Jul 2009 BUN 11 10 - 20 mg/dL [facility] LABORATORY Creatinine 0.96 0.80 - 1.50 mg/dL [facility] LABORATORY Sodium 132 (L) 135 - 145 mmol/L [facility] LABORATORY Potassium 4.0 3.5 - 5.0 mmol/L [facility] LABORATORY Comment: Please note: ??Patients with WBC >100,00 0 may have falsely elevated Potassium levels. ??For accurate Potassium quantif ication in these patients send serum separator tube (gold top) for subsequent determinations. ??Contact the Clinical Chemistry Laboratory if there are any qu estions. Chloride 105 98 - 107 mmol/L [facility] CO2 17 (L) 22 - 31 mmol/L [facility] Anion Gap 10 5 - 15 mmol/L [facility] LABORATORY Calcium 7.6 (L) 8.5 - 10.5 mg/dL [facility] LABORATORY Estimated GFR 78 >=60 mL/min/1.73 m?? [facility] Comment: The eGFR was calculated using the CKD-EP I equation. As with all creatinine based estimates of kidney function, eGFR values calculated with the CKD-EPI equation are not accurate in patients wi th acute kidney failure, extremes of body mass or the acutely ill. http://Evertale/[facility]f eGFR 91 >=60 mL/min/1.73 m?? [facility] Comment: The eGFR was calculated using the CKD-EP I equation. As with all creatinine based estimates of kidney function, eGFR values calculated with the CKD-EPI equation are not accurate in patients wi th acute kidney failure, extremes of body mass or the acutely ill. [email or web address] Specimen Anatomical Collection Method Collection Time Receive d Time (Source) Location / / Volume Laterality Blood specimen 12/01/2019 3:55 AM 020 4:00 (specimen) EDT AM EDT Resulting Agency Comment Spec In Lab Gretchen Yoon MD CHEMISTRY ORDERABLES Performing Organization Address City/State/[place] [address] (ABNORMAL) Hemogram (12/01/2019 3:55 AM EDT) Analysis Performed At [facility] Time Signature WBC 11.0 (H) 4.0 - 9.5 [facility] x10(3)/[facility] LABORATORY RBC 3.46 (L) 4.58 - [facility] 5.54 [facility] x10(6)/[facility] LABORATORY Hemoglobin 10.2 (L) 13.7 - [facility] 16.5 gm/dL [facility] LABORATORY Hematocrit 31.2 (L) 40.5 - [facility] 48.5 % [facility]ORATORY MCV 90.2 82.9 - [facility] 93.1 [facility] LABORATORY MCH 29.5 27.5 - [facility] 32.1 pg [facility] LABORATORY MCHC 32.7 32.0 - [facility] 35.7 gm/dL [facility] LABORATORY Platelets 98 (L) 145 - 357 [facility] x10(3)/[facility] LABORATORY RDWSD 47.9 (H) 36.0 - [facility] 45.0 [facility] LABORATORY RDWCV 14.6 (H) 11.4 - [facility] 13.8 % [facility] LABORATORY MPV 12.3 7.6 - 12.9 [facility] LABORATORY nRBC % Auto 0.0 % [facility] LABORATORY nRBC Abs Auto 0.000 0.000 - [facility] 0.000 [facility] x10(3)/[facility] LABORATORY Specimen Anatomical Collection Method Collection Time Receive d Time (Source) Location / / Volume Laterality Blood specimen 12/01/2019 3:55 AM 020 4:00 (specimen) EDT AM EDT Resulting Agency Comment Spec In Lab Gretchen Yoon MD HEMATOLOGY ORDERABLES Performing Organization Address City/State/[place] [address] (ABNORMAL) BLOOD GAS 2 ARTERIAL (11/30/2019 10:39 PM EDT) Analysis Performed At [facility] Time Signature pH Art 7.45 7.35 - [facility] 7.45 [facility] LABORATORY pCO2 Art 23 (L) 35 - 45 [facility] LABORATORY pO2 Art 76 (L) 85 - 104 [facility] LABORATORY HCO3 Art 15.3 (L) 20.0 - [facility] 26.0 [facility] mmol/[facility] LABORATORY BE Art -8.7 (L) -3.0 - 3.0 [facility] mmol/L [facility] LABORATORY Hgb Blood Gas 11.7 (L) 13.7 - [facility] 16.5 gm/dL [facility] O2HB Art 94.2 94.0 - [facility] 97.0 % [facility] LABORATORY COHB Art 0.5 % [facility] Comment: Nonsmokers: 0.5-1.5% COHB Smokers: Variable, but usually less than 10% Toxic: 20-30% COHB Lethal: Greater than 60% COHB METHB Art 0.6 <=1.5 % [facility] LABORATORY Na Whole Blood 133 (L) 135 - 145 mmol/L [facility] LABORATORY K Whole Blood 3.8 3.5 - 5.0 mmol/L [facility] LABORATORY Comment: Please note: Patients with WBC >100,000 may have falsely elevated Potassium levels. Contact the Clinical Chemistry L aboratory if there are any questions. ICa Whole Blood 1.10 (L) 1.15 - 1.33 mmol/L [facility] Comment: Note: ??Total bilirubin higher than 20 m g/dL may lead to falsely low ionized calcium. CL Whole Blood 109 (H) 98 - 107 mmol/L [facility] LABORATORY Gluc Whole Bld 120 65 - 199 mg/dL [facility] LAB[facility] Comment: Diabetes: >=200 mg/dL plus symp toms. Lactate WB 0.8 0.5 - 2.2 mmol/L [facility] LABORATORY FIO2 Art 100 % [facility] LABORATORY PF Ratio Art 76 [facility] LABORATORY Specimen Anatomical Collection Method Collection Time Receive d Time (Source) Location / / Volume Laterality Blood specimen 11/30/2019 10:39 0 (specimen) PM EDT 10:39 PM EDT Gretchen Yoon MD CHEMISTRY ORDERABLES Performing Organization Address City/State/[place] [address] EKG 12 Lead (11/30/2019 [...] (Bezet) Calculated P 12 degrees [facility] [place] Calculated R 19 degrees [facility] [place] Calculated T -47 degrees [facility] [place] INTERPRETATION Sinus rhythm with Premature supraventricular complexes [...] Organization Address City/[facility]/ZIP Code Phon e Number MUSE SYSTEM (ABNORMAL) Urinalysis Microscopic Exam (11/30/2019 8:40 PM EDT) P athologist Signature RBC UA 27 (H) 0 - 3 /HPF [facility] WBC UA 4 (H) 0 - 3 /HPF [facility] Hyaline Cast 3 (H) 0 - 2 /LPF [facility] LABORATORY Specimen (Source) Anatomical Collection Method Collection Time Re ceived Time Location / / Volume Laterality Urine specimen 11/30/2019 8:40 11/30/2019 obtained via PM EDT 10:51 PM EDT indwelling urinary catheter (specimen) Resulting Agency Comment Spec In Lab Rossy Winn MD URINE ORDERABLES Performing Organization Address City/[facility]/ZIP Code Phon e Number [place] [phone] (ABNORMAL) Urinalysis with reflex Culture (11/30/2019 8:40 PM EDT) Patholo gist Method Time Signature Glucose UA Negative Negative [facility] mg/dL [facility] Protein UA Negative Negative [facility] Bilirubin UA Negative Negative [facility] mg/dL [facility] Comment: Clinical correlation required for positi ve Urine Bilirubin results as false positive may occur with some drugs and d rug related products. If a false positive is suspected a serum total bili morales should be considered if clinically indicated. Urobilinogen UA Normal Normal mg/dL [facility] pH UA 5.5 5.0 - 8.0 [facility] Blood UA Moderate (A) Negative mg/dL [facility] Ketones UA 40 (A) Negative mg/dL [facility] Nitrite UA Negative Negative [facility] LABORATORY Leukocytes UA Trace (A) Negative [facility] LABORATORY Appearance UA Clear Clear [facility] LABORATORY Spec [place] UA 1.026 1.006 - 1.030 [facility] Color UA Yellow Yellow [facility] Culture Reflexed No [facility]OR[facility]ORY Specimen (Source) Anatomical Collection Method Collection Time Re ceived Time Location / / Volume Laterality Urine specimen 11/30/2019 8:40 11/30/2019 obtained via PM EDT 10:51 PM EDT indwelling urinary catheter (specimen) Resulting Agency Comment Spec In Lab Gretchen Yoon MD URINE ORDERABLES Performing Organization Address City/State/[place] [address] (ABNORMAL) pro-Brain Natriuretic Peptide (11/30/2019 8:30 PM EDT) P athologist Signature ProBNP 2,802 (H) <=125 [facility] pg/mL [facility]OR[facility] Specimen Anatomical Collection Method Collection Time Receive d Time (Source) Location / / Volume Laterality Blood specimen Venous Draw / 11/30/2019 8:30 PM 2019 8:36 (specimen) Unknown EDT PM EDT Resulting Agency Comment Spec In Lab Rossy Winn MD CHEMISTRY ORDERABLES Performing Organization Address City/State/ZIP Code Phon e Number [place] [phone] (ABNORMAL) Troponin (11/30/2019 8:30 PM EDT) athologist Signature Troponin-T 5.04 (H) 0.00 - MELINA MONAE 0.00 ng/mL [facility] Comment: The 99th percentile for Troponin T is le ss than 0.01 ng/mL, any detectable cTnT concentration using this assay should be considered elevated. According to the third universal definit ion of myocardial infarction the following criteria with a clinical prese ntation consistent with acute myocardial ischemia meets the diagnosis for a myocardial infarction (OK). Detection of a rise and/or fall of [...] additional sample may be indicated. Reference: Third [place] Definition of Myocardial Infarction. Journal of the [place] [employer] 2012;60:1581-98 Specimen Anatomical Collection Method Collection Time Receive d Time (Source) Location / / Volume Laterality Blood specimen Venous Draw / 11/30/2019 8:30 PM 2019 8:36 (specimen) Unknown EDT PM EDT Resulting Agency Comment Spec In Lab Rossy Winn MD CHEMISTRY ORDERABLES Performing Organization Address City/State/[place] [address] Magnesium (11/30/2019 8:30 PM EDT) athologist Signature Magnesium 0.79 0.69 - 1.07 [facility] mmol/L [facility] Specimen Anatomical Collection Method Collection Time Receive d Time (Source) Location / / Volume Laterality Blood specimen 11/30/2019 8:30 PM 020 8:35 (specimen) EDT PM EDT Resulting Agency Comment Spec In Lab Gretchen Yoon MD CHEMISTRY ORDERABLES Performing Organization Address City/State/[place] [address] (ABNORMAL) Basic Metabolic Panel (non-fasting) (11/30/2019 8:30 PM EDT) athologist Signature Glucose Lvl 132 65 - 199 [facility] mg/dL [facility] Comment: Diabetes: >=200 mg/dL plus symp toms BUN 12 10 - 20 mg/dL [facility] Creatinine 0.94 0.80 - 1.50 mg/dL [facility] Sodium 136 135 - 145 mmol/L [facility] Potassium 3.9 3.5 - 5.0 mmol/L [facility] Comment: Please note: ??Patients with WBC >100,00 0 may have falsely elevated Potassium levels. ??For accurate Potassium quantif ication in these patients send serum separator tube (gold top) for subsequent determinations. ??Contact the Clinical Chemistry Laboratory if there are any qu estions. Chloride 108 (H) 98 - 107 mmol/L [facility] CO2 17 (L) 22 - 31 mmol/L [facility] Anion Gap 11 5 - 15 mmol/L [facility] Calcium 7.9 (L) 8.5 - 10.5 mg/dL [facility] Estimated GFR 80 >=60 mL/min/1.73 m?? [facility] Comment: The eGFR was calculated using the CKD-EP I equation. As with all creatinine based estimates of kidney function, eGFR values calculated with the CKD-EPI equation are not accurate in patients wi th acute kidney failure, extremes of body mass or the acutely ill. http://Evertale/DHnkf eGFR 93 >=60 mL/min/1.73 m?? [facility] Comment: The eGFR was calculated using the CKD-EP I equation. As with all creatinine based estimates of kidney function, eGFR values calculated with the CKD-EPI equation are not accurate in patients wi th acute kidney failure, extremes of body mass or the acutely ill. http://Evertale/DHnkf Specimen Anatomical Collection Method Collection Time Receive d Time (Source) Location / / Volume Laterality Blood specimen 11/30/2019 8:30 PM 020 8:35 (specimen) EDT PM EDT Resulting Agency Comment Spec In Lab Gretchen Yoon MD CHEMISTRY ORDERABLES Performing Organization Address [facility] Phon e Number [address] Blood culture (11/30/2019 8:30 PM EDT) Patholo gist Method Time Signature Blood Culture No growth MELINA MONAE at 5 days. [facility] Specimen Anatomical Collection Method Collection Time Receive d Time (Source) Location / / Volume Laterality Blood specimen 11/30/2019 8:30 PM 020 9:40 (specimen) EDT PM EDT Comment: L HAND Resulting Agency Comment Spec In Lab Gretchen Yoon MD MICROBIOLOGY - BLOOD ORDERAB LES Performing Organization Address City/[facility] [place] [address] Blood culture (11/30/2019 8:30 PM EDT) Patholo gist Method Time Signature Blood Culture No growth MELINA MONAE at 5 days. [facility] Specimen Anatomical Collection Method Collection Time Receive d Time (Source) Location / / Volume Laterality Blood specimen 11/30/2019 8:30 PM 020 9:40 (specimen) EDT PM EDT Comment: R HAND Resulting Agency Comment Spec In Lab Gretchen Yoon MD MICROBIOLOGY - BLOOD ORDERAB LES Performing Organization Address [facility] Phon e Number [address] XR Chest One View [...] Signature pH Art 7.45 7.35 - [facility] 7.45 [facility] pCO2 Art 27 (L) 35 - 45 [facility] mmHg [facility] LABORATORY pO2 Art 68 (L) 85 - 104 [facility] LABORATORY HCO3 Art 18.2 (L) 20.0 - [facility] 26.0 [facility] mmol/[facility] LABORATORY BE Art -5.9 (L) -3.0 - 3.0 [facility] mmol/L [facility] LABORATORY Hgb Blood Gas 12.4 (L) 13.7 - [facility] 16.5 gm/dL [facility] O2HB Art 93.1 (L) 94.0 - [facility] 97.0 % [facility] LABORATORY COHB Art 0.8 % [facility] Comment: Nonsmokers: 0.5-1.5% COHB Smokers: Variable, but usually less than 10% Toxic: 20-30% COHB Lethal: Greater than 60% COHB METHB Art 0.4 <=1.5 % [facility] Na Whole Blood 133 (L) 135 - 145 mmol/L [facility] LABORATORY K Whole Blood 3.6 3.5 - 5.0 mmol/L [facility] LAB[facility] Comment: Please note: Patients with WBC >100,000 may have falsely elevated Potassium levels. Contact the Clinical Chemistry L aboratory if there are any questions. ICa Whole Blood 1.13 (L) 1.15 - 1.33 mmol/L [facility] Comment: Note: ??Total bilirubin higher than 20 m g/dL may lead to falsely low ionized calcium. CL Whole Blood 108 (H) 98 - 107 mmol/L [facility] Gluc Whole Bld 121 65 - 199 mg/dL [facility] Comment: Diabetes: >=200 mg/dL plus symp toms. Lactate WB 1.2 0.5 - 2.2 mmol/L [facility] Flow Art 5.0 LPM [facility] Specimen Anatomical Collection Method Collection Time Receive d Time (Source) Location / / Volume Laterality Blood specimen 11/30/2019 8:09 PM 020 8:09 (specimen) EDT PM EDT Gretchen Yoon MD CHEMISTRY ORDERABLES Performing Organization Address City/State/ZIP Code Phon e Number [place] [phone] LAB[address]ORY Drive CT Angiogram [place] (11/30/2019 4:36 PM EDT) Anatomical [...] CT HEAD WO CONTRAST (GENERIC), CT ANGIOGRAM [place] CLINICAL HISTORY: Headache, intracranial hemorrhage suspected F/U on known ICH - assessing for propaga tion TECHNIQUE: CT head performed without intravenous co ntrast administration. CT angiogram [place] 65 cc Omnipaque 350 administered [...] HEAD WO CONTRAST (GENERI C), CT ANGIOGRAM [place] CLINICAL HISTORY: Headache, intracranial hemorrhage suspected F/U on known ICH - assessing for propaga tion TECHNIQUE: CT head performed without intravenous co ntrast administration. CT angiogram [place] 65 cc Omnipaque 350 administered [...] CT HEAD WO CONTRAST (GENERIC), CT ANGIOGRAM [place] CLINICAL HISTORY: Headache, intracranial hemorrhage suspected F/U on known ICH - assessing for propaga tion TECHNIQUE: CT head performed without intravenous co ntrast administration. CT angiogram [place] 65 cc Omnipaque 350 administered [...] HEAD WO CONTRAST (GENERI C), CT ANGIOGRAM [place] CLINICAL HISTORY: Headache, intracranial hemorrhage suspected F/U on known ICH - assessing for propaga tion TECHNIQUE: CT head performed without intravenous co ntrast administration. CT angiogram [place] 65 cc Omnipaque 350 administered [...] Electronically signed by: Angel Luis Barboza MD, [facility] ([phone]), at 11/30/2019 5:04 PM Gretchen Yoon MD [...] 453 ms MUSE SYSTEM (Bezet) Calculated P [place] 52 degrees MUSE SYSTEM Calculated R [place] 5 degrees MUSE SYSTEM Calculated T [place] -60 degrees MUSE SYSTEM INTERPRETATION Sinus rhythm [...] [place] ? (Age): 1945(74y) Med Rec#: ? [id number] ?Sex: ?M ? Site Loc: ? [facility] ?Ht / Wt: ??178(cm)/64(kg) Pt. Loc: ?CCU ? BSA: ?1.8 Study Date: ?? 11/30/2019 ?Pt. Type: Inpatient Tape: ? Referring: GILMER Reading: Tello Mejia ([id number]) Staying Machine Operator: Friend, Lolita Diagnosis: *ST elevation (STEMI) [...] Vmax ?0.58 ? m/sec ? MV deceleration ptnk701.05 ? m sec ? MV A-wave Vmax [...] ? Mid-Inferior ?Akinetic ? Mid-Inferoseptal ?Normal ? Angier-Septal ? Normal ? Angier-Anterior ? Normal ? [place]ier-Lateral ?Normal ? Angier-Inferior ? Hypokinetic ? Angier-Tip ?Normal ? This report has been electronically sign ed by: _ Tello Mejia MD ? 11/30/2019 12: 45:27 Images [facility] and [facility] Procedure Note Tello Mejia MD - 11/30/2019Formatti ng of this note might be different from the original. Procedure: Transthoracic Echocardiogram Patient: RITA ACOSTA(Age): [birth year](74y) Med Rec#: [id number] Sex: M Site Loc: [facility] Ht / Wt: 178(cm)/64(kg) Pt. Loc: [facility] BSA: 1.8 Study Date: 11/30/2019 Pt. Type: Inpatie nt Tape: Referring: DONAYMICMUNIRAJ Reading: Tello Mejia ([id number]) Staying Machine Operator: Lolita Prado Diagnosis: *ST elevation (STEMI) [...] MV E-wave Vmax 0.58 m/sec MV deceleration tdgr901.05 msec MV A-wave Vmax 0.74 m/sec MV [...] Hypokinetic Mid-Posterolateral Hypokinetic Mid-Inferior Akinetic Mid-Inferoseptal Normal Angier-Septal Normal Angier-Anterior Normal [place]-Lateral Normal Angier-Inferior Hypokinetic Ang[place]-Tip Normal This report has been electronically sign ed by: _ Tello Mejia MD 11/30/2019 12:45:27 Images reviewed and interpretation rafaela devin [facility] Cardiac Ultrasound Laboratory Gretchen Yoon [...] Electronically signed by: Angel Luis Barboza MD, [facility] ([phone]), at 11/30/2019 12:04 PM Narrative 11/30/2019 12:04 [...] ORDERABLES Magnesium (11/30/2019 8:30 AM EDT) athologist [facility] Magnesium 0.88 0.69 - 1.07 [facility] mmol/L [facility] LABORATORY Specimen Anatomical Collection Method Collection Time Receive d Time (Source) Location / / Volume Laterality Blood specimen Venous Draw / 11/30/2019 8:30 AM 2019 8:37 (specimen) Unknown EDT AM EDT Resulting Agency Comment Spec In Lab Rossy Winn MD CHEMISTRY ORDERABLES Performing Organization Address City/[facility]/[place] [address] (ABNORMAL) CK (11/30/2019 8:30 AM EDT) athologist [facility] CK, Total 1,645 (H) 0 - 200 [facility]L [facility] LAB[facility]ATORY Specimen Anatomical Collection Method Collection Time Receive d Time (Source) Location / / Volume Laterality Blood specimen 11/30/2019 8:30 AM 020 8:32 (specimen) EDT AM EDT Resulting Agency Comment Spec In Lab Gretchen Yoon MD CHEMISTRY ORDERABLES Performing Organization Address City/[facility] [place] [address] (ABNORMAL) Troponin (11/30/2019 8:30 AM EDT) athologist [facility] Troponin-T 8.04 (H) 0.00 - MELINA DOV 0.00 ng/mL [facility] Comment: result rechecked-rancho The 99th percentile for Troponin T is le ss than 0.01 ng/mL, any detectable cTnT concentration using this assay should be considered elevated. According to the third universal definit ion of myocardial infarction the following criteria with a clinical prese ntation consistent with acute myocardial ischemia meets the diagnosis for a myocardial infarction (OK). Detection of a rise and/or fall of [...] additional sample may be indicated. Reference: Third [place] Definition of Myocardial Infarction. Journal of the [place] [employer] 2012;60:1581-98 Specimen Anatomical Collection Method Collection Time Receive d Time (Source) Location / / Volume Laterality Blood specimen 11/30/2019 8:30 AM 020 8:32 (specimen) EDT AM EDT Resulting Agency Comment Spec In Lab Gretchen Yoon MD CHEMISTRY ORDERABLES Performing Organization Address City/State/ZIP Code Phon e Number [place] [phone] Drive EKG 12 Lead (11/30/2019 7:57 AM EDT) Component Value Ref Range Test Analysis Performed Pathologis t Method Time At Signature Ventricular rate 64 BPM MUSE SYSTEM Atrial Rate 64 BPM MUSE SYSTEM P-R Interval 132 ms MUSE SYSTEM QRS Duration 78 ms MUSE SYSTEM Q-T Interval 420 ms MUSE SYSTEM QTC Calculated 433 ms MUSE SYSTEM (Bezet) Calculated [place] 28 degrees MUSE SYSTEM Calculated R [place] 7 degrees MUSE SYSTEM Calculated T [place] -33 degrees MUSE SYSTEM INTERPRETATION Sinus rhythm [...] Signature Glucose 147 (H) 65 - 99 [facility] Fasting mg/dL [facility]ORATORY Comment: ?Fasting* Glucose Interpretive C riteria [...] of Diabetes Mellitus, Position Statement from the [place] [employer]. ??Diabete s Care, Volume 33, Supplement 1, Jul 2009 BUN 13 10 - 20 mg/dL [facility] Creatinine 0.90 0.80 - 1.50 mg/dL [facility]OR[facility] Sodium 135 135 - 145 mmol/L [facility] Potassium 3.9 3.5 - 5.0 mmol/L [facility] Comment: Please note: ??Patients with WBC >100,00 0 may have falsely elevated Potassium levels. ??For accurate Potassium quantif ication in these patients send serum separator tube (gold top) for subsequent determinations. ??Contact the Clinical Chemistry Laboratory if there are any qu estions. Chloride 108 (H) 98 - 107 mmol/L [facility] CO2 16 (L) 22 - 31 mmol/L [facility] Anion Gap 11 5 - 15 mmol/L [facility] Calcium 7.5 (L) 8.5 - 10.5 mg/dL [facility] Estimated GFR 84 >=60 mL/min/1.73 m?? [facility] Comment: The eGFR was calculated using the CKD-EP I equation. As with all creatinine based estimates of kidney function, eGFR values calculated with the CKD-EPI equation are not accurate in patients wi th acute kidney failure, extremes of body mass or the acutely ill. [email or web address]/[facility] eGFR 98 >=60 mL/min/1.73 m?? [facility] Comment: The eGFR was calculated using the CKD-EP I equation. As with all creatinine based estimates of kidney function, eGFR values calculated with the CKD-EPI equation are not accurate in patients wi th acute kidney failure, extremes of body mass or the acutely ill. [email or web address]/[facility] Specimen Anatomical Collection Method Collection Time Receive d Time (Source) Location / / Volume Laterality Blood specimen 11/30/2019 2:15 AM 020 2:29 (specimen) EDT AM EDT Resulting Agency Comment Spec In Lab Gretchen Yoon MD CHEMISTRY ORDERABLES Performing Organization Address City/State/ZIP Code Phon e Number [place] [phone] Drive (ABNORMAL) Hemogram (11/30/2019 2:15 AM EDT) Analysis Performed At Patho logist Time Signature WBC 11.2 (H) 4.0 - 9.5 [facility] x10(3)/[facility] LABORATORY RBC 3.83 (L) 4.58 - [facility] 5.54 [facility] x10(6)/[facility] LABORATORY Hemoglobin 11.4 (L) 13.7 - [facility] 16.5 gm/dL [facility]ORATORY Hematocrit 35.2 (L) 40.5 - [facility] 48.5 % [facility] LABORATORY MCV 91.9 82.9 - [facility] 93.1 fL [facility] LABORATORY MCH 29.8 27.5 - [facility] 32.1 pg [facility] LABORATORY MCHC 32.4 32.0 - MELINA MONAE 35.7 gm/dL [facility] LABORATORY Platelets 122 (L) 145 - 357 MELINA MARSHDOV x10(3)/[facility] LABORATORY RDWSD 49.8 (H) 36.0 - MELINA MONAE 45.0 [facility] LABORATORY RDWCV 14.8 (H) 11.4 - MELINA [place]ITT[place] 13.8 % [facility] LABORATORY MPV 12.1 7.6 - 12.9 MELINA MONAE [facility] LABORATORY nRBC % Auto 0.0 % [facility] nRBC Abs Auto 0.000 0.000 - MELINA MARSHDOV 0.000 [facility] x10(3)/[facility] LABORATORY Specimen Anatomical Collection Method Collection Time Receive d Time (Source) Location / / Volume Laterality Blood specimen 11/30/2019 2:15 AM 020 2:29 (specimen) EDT AM EDT Resulting Agency Comment Spec In Lab Gretchen Yoon MD HEMATOLOGY ORDERABLES Performing Organization Address City/State/[place] [address] (ABNORMAL) CK (11/30/2019 2:15 AM EDT) athologist [facility] CK, Total 1,969 (H) 0 - 200 [facility] DOV unit/L [facility] LABORATORY Specimen Anatomical Collection Method Collection Time Receive d Time (Source) Location / / Volume Laterality Blood specimen 11/30/2019 2:15 AM 020 2:29 (specimen) EDT AM EDT Resulting Agency Comment Spec In Lab Gretchen Yoon MD CHEMISTRY ORDERABLES Performing Organization Address City/State/[place] [address] (ABNORMAL) Troponin (11/30/2019 2:15 AM EDT) athologist [facility] Troponin-T 11.73 (H) 0.00 - MELINA MONAE 0.00 ng/mL [facility]ORATORY Comment: result rechecked-slw The 99th percentile for Troponin T is le ss than 0.01 ng/mL, any detectable cTnT concentration using this assay should be considered elevated. According to the third universal definit ion of myocardial infarction the following criteria with a clinical prese ntation consistent with acute myocardial ischemia meets the diagnosis for a myocardial infarction (OK). Detection of a rise and/or fall of [...] additional sample may be indicated. Reference: Third [place] Definition of Myocardial Infarction. Journal of the [place] [employer] 2012;60:1581-98 result rechecked- The 99th percentile for Troponin T is le ss than 0.01 ng/mL, any detectable cTnT concentration using this assay should be considered elevated. According to the third universal definit ion of myocardial infarction the following criteria with a clinical prese ntation consistent with acute myocardial ischemia meets the diagnosis for a myocardial infarction (OK). Detection of a rise and/or fall of [...] additional sample may be indicated. Reference: Third [place] Definition of Myocardial Infarction. Journal of the [place] [employer] 2012;60:1581-98 Corrected from 11.73 ng/ml [HI] on 11/29 3:11:51 EDT by Debi Hawley Specimen Anatomical Collection Method Collection Time Receive d Time (Source) Location / / Volume Laterality Blood specimen 11/30/2019 2:15 AM 020 2:29 (specimen) EDT AM EDT Resulting Agency Comment Spec In Lab Gretchen Yoon MD CHEMISTRY ORDERABLES Performing Organization Address City/[facility]/ZIP Code Phon e Number [address] LDL Cholesterol, Direct (11/30/2019 2:15 AM EDT) P athologist Signature LDL Chol 156 mg/dL [facility] LABORATORY Comment: Lowest Risk: <100 mg/dL Lower Risk: 100-129 mg/dL Borderline High Risk: 130-159 mg/dL High Risk: 160-189 mg/dL Very High Risk: >pz=217 mg/dL Specimen Anatomical Collection Method Collection Time Receive d Time (Source) Location / / Volume Laterality Blood specimen 11/30/2019 2:15 AM 020 2:29 (specimen) EDT AM EDT Resulting Agency Comment Spec In Lab Gretchen Yoon MD CHEMISTRY ORDERABLES Performing Organization Address City/[facility]/ZIP Code Phon e Number [address] (ABNORMAL) Hemoglobin A1c (11/30/2019 [...] Mellitus, Diabetes Care 2013; 36: Suppl. 1, R45-01 Est Avg Gluc See note mg/dL [facility] LABORATORY Comment: Estimated Average Glucose [...] with hemoglobinopathies. Additional resources are available on [facility] ADA website. Kiko CARBAJAL, Jenn J, Silas R, et al. ??Tr anslating the A1C assay into estimated average glucose values. ??Diabetes Care 2008:31(8):6237-1739. Specimen Anatomical Collection Method Collection Time Receive d Time (Source) Location / / Volume Laterality Blood specimen 11/30/2019 2:15 AM 020 2:29 (specimen) EDT AM EDT Resulting Agency Comment Spec In Lab Gretchen Yoon MD CHEMISTRY ORDERABLES Performing Organization Address City/State/[place] [address] Lipid Panel (Reflex Direct LDL) (11/30/2019 2:15 AM EDT) athologist Signature Chol, Total 195 mg/dL [facility] Comment: Lower Risk: <200 mg/dL Average Risk: 200-239 mg/dL Higher Risk: >mg=668 mg/dL Triglycerides 93 mg/dL [facility] Comment: Average Risk/Lower Risk: <150 mg/dL Borderline High Risk: 150-199 mg/dL High Risk: 200-499 mg/dL Very High Risk: >uv=711 mg/dL HDL 32 mg/dL [facility] Comment: Males: ?? Higher Risk: <40 mg/dL Females: ?? HIgher Risk: <50 mg/dL LDL Cholesterol 144 mg/dL [facility] Comment: Lowest Risk: <100 mg/dL Lower Risk: 100-129 mg/dL Borderline High Risk: 130-159 mg/dL High Risk: 160-189 mg/dL Very High Risk: >dh=305 mg/dL Chol/HDL Ratio 6.1 ratio [facility] Lipid Interpretation See Note [facility] Comment: Lipid management should be guided by a p atient? s ASCVD risk, goals and preferences. ACC/AHA Guidelines recommend high intens ity statin if clinical ASCVD or LDL greater than or equal to 190 mg/dL. http://Evertale/YWX-KDX-Dwjvzhopl Adults aged 40-75 with LDL 70-189 mg/dL should have their 10 year ASCVD risk estimated with the ACC/AHA ASCVD risk es timator http://tools.acc.org/GHJUZ-Svpg-Lfcpzlwh r/ Statin should be discussed if risk [...] Organization Address City/State/[place] [address] (ABNORMAL) CK (11/29/2019 6:35 PM EDT) athologist Signature CK, Total 2,780 (H) 0 - 200 [facility] unit/L [facility] Specimen Anatomical Collection Method Collection Time Receive d Time (Source) Location / / Volume Laterality Blood specimen 11/29/2019 6:35 PM 020 6:53 (specimen) EDT PM EDT Resulting Agency Comment Spec In Lab Gretchen Yoon MD CHEMISTRY ORDERABLES Performing Organization Address City/State/[place] [address] (ABNORMAL) Troponin (11/29/2019 6:35 PM EDT) athologist Signature Troponin-T 17.60 (H) 0.00 - [facility] 0.00 ng/mL [facility] Comment: result rechecked-az The 99th percentile for Troponin T is le ss than 0.01 ng/mL, any detectable cTnT concentration using this assay should be considered elevated. According to the third universal definit ion of myocardial infarction the following criteria with a clinical prese ntation consistent with acute myocardial ischemia meets the diagnosis for a myocardial infarction (OK). Detection of a rise and/or fall of [...] additional sample may be indicated. Reference: Third [place] Definition of Myocardial Infarction. Journal of the [place] [employer] 2012;60:1581-98 Specimen Anatomical Collection Method Collection Time Receive d Time (Source) Location / / Volume Laterality Blood specimen 11/29/2019 6:35 PM 020 6:53 (specimen) EDT PM EDT Resulting Agency Comment Spec In Lab Gretchen Yoon MD CHEMISTRY ORDERABLES Performing Organization Address City/State/ZIP Code Phon e Number [place] [id number] EKG 12 Lead (11/29/2019 3:58 PM EDT) [facility] gist Method Time Signature Ventricular rate 73 BPM MUSE SYSTEM Atrial Rate 73 BPM MUSE SYSTEM P-R Interval 152 ms MUSE SYSTEM QRS Duration 84 ms MUSE SYSTEM Q-T Interval 404 ms MUSE SYSTEM QTC Calculated 445 ms MUSE SYSTEM (Bezet) Calculated P [place] 50 degrees MUSE SYSTEM Calculated R [place] -4 degrees MUSE SYSTEM Calculated T [place] 19 degrees MUSE SYSTEM INTERPRETATION Sinus rhythm [...] CLINICAL HISTORY: stemi (as entered by o [facility] provider in the order requisition) TECHNIQUE: Portable [...] lung apex is excluded from the imaged [id number]. IMPRESSION: 1. ??New right internal jugular pulmonar [...] lung apex is excluded from the imaged [id number]. Procedure Note Estefani Harris MD - 11/29/2019Formattin [...] lung apex is excluded from the imaged [id number]. IMPRESSION 1. New right internal jugular pulmonary [...] (ABNORMAL) Differential, Automated (11/29/2019 2:32 PM EDT) [facility] Method Time Signature Neutrophils % 83.8 % [facility] Neutr Abs (ANC) 12.12 (H) 1.70 - [facility] 6.10 [facility] x10(3)/[facility] LABORATORY Lymphocytes % 9.1 % [facility] Lymphocytes Abs 1.3 0.9 - 3.2 [facility] x10(3)/[facility] LABORATORY Monocytes % 6.2 % [facility] Monocyte Abs 0.9 0.3 - 0.9 [facility] x10(3)/[facility] LABORATORY Eosinophils % 0.0 % [facility] Eosinophils Abs 0.0 0.0 - 0.4 [facility] x10(3)/[facility] LABORATORY Basophils % 0.3 % [facility] Basophils Abs 0.0 0.0 - 0.1 [facility] x10(3)/[facility] LABORATORY Immature Gran % 0.60 % [facility] Comment: Immature granulocytes(IG's)percentage an d absolute count will include metamyelocytes, myelocytes, and promyelo cytes. Blood smears from CBCs yielding IG's will be scanned manually for concor dance. If this scan disagrees with the automated IG or if promyelocytes are not ed, a manual differential will be performed. Pita Gran Abs 0.08 (H) 0.00 - 0.04 x10(3)/[facility] LABORATORY Specimen Anatomical Collection Method Collection Time Receive d Time (Source) Location / / Volume Laterality Blood specimen 11/29/2019 2:32 PM 020 2:55 (specimen) EDT PM EDT Resulting Agency Comment Spec In Lab Darrell Glasgow MD HEMATOLOGY ORDERABLES Performing Organization Address City/State/[place] [address] (ABNORMAL) Hemogram (11/29/2019 2:32 PM EDT) Analysis Performed At Patho logist Time Signature WBC 14.5 (H) 4.0 - 9.5 [facility] x10(3)/[facility] LABORATORY RBC 4.53 (L) 4.58 - [facility] 5[facility]54 [facility] x10(6)/[facility] LABORATORY Hemoglobin 13.1 (L) 13.7 - [facility] 16.5 gm/dL [facility] Hematocrit 40.8 40.5 - [facility] 48.5 % [facility] MCV 90.1 82.9 - [facility] 93.1 [facility] LABORATORY MCH 28.9 27.5 - [facility] 32.1 pg [facility] MCHC 32.1 32.0 - [facility] 35.7 gm/dL [facility] Platelets 184 145 - 357 [facility] x10(3)/[facility] LABORATORY RDWSD 47.8 (H) 36.0 - [facility] DOV 45.0 [facility] LABORATORY RDWCV 14.5 (H) 11.4 - [facility] DOV 13.8 % [facility] LABORATORY MPV 11.9 7.6 - 12.9 [facility] nRBC % Auto 0.0 % [facility] nRBC Abs Auto 0.000 0.000 - [facility] DOV 0.000 [facility] x10(3)/[facility] LABORATORY Specimen Anatomical Collection Method Collection Time Receive d Time (Source) Location / / Volume Laterality Blood specimen 11/29/2019 2:32 PM 020 2:55 (specimen) EDT PM EDT Resulting Agency Comment Spec In Lab Darrell Glasgow MD HEMATOLOGY ORDERABLES Performing Organization Address City/State/ZIP Code Phon e Number [address] (ABNORMAL) CK (11/29/2019 2:32 PM EDT) athologist Signature CK, Total 3,282 (H) 0 - 200 [facility] unit/L [facility] LABORATORY Specimen Anatomical Collection Method Collection Time Receive d Time (Source) Location / / Volume Laterality Blood specimen 11/29/2019 2:32 PM 020 2:32 (specimen) EDT PM EDT Resulting Agency Comment Spec In Lab Gretchen Yoon MD CHEMISTRY ORDERABLES Performing Organization Address City/[facility]/[place] [address] (ABNORMAL) Troponin (11/29/2019 2:32 PM EDT) athologist Signature Troponin-T 20.33 (H) 0.00 - [facility] 0.00 ng/mL [facility] Comment: The 99th percentile for Troponin T is le ss than 0.01 ng/mL, any detectable cTnT concentration using this assay should be considered elevated. According to the third universal definit ion of myocardial infarction the following criteria with a clinical prese ntation consistent with acute myocardial ischemia meets the diagnosis for a myocardial infarction (OK). Detection of a rise and/or fall of [...] additional sample may be indicated. Reference: Third [place] Definition of Myocardial Infarction. Journal of the [employer] 2012;60:1581-98 Specimen Anatomical Collection Method Collection Time Receive d Time (Source) Location / / Volume Laterality Blood specimen 11/29/2019 2:32 PM 020 2:32 (specimen) EDT PM EDT Resulting Agency Comment Spec In Lab Gretchen Yoon MD CHEMISTRY ORDERABLES Performing Organization Address [facility] [place] [address] (ABNORMAL) APTT (11/29/2019 2:32 PM EDT) athologist Signature PTT 114 25 - 37 [facility] (Critical) Critical access hospital LABORATORY Comment: Critical Result called by ?? [...] Yoon MD HEMATOLOGY ORDERABLES Performing Organization Address [facility] [place] [address] (ABNORMAL) Prothrombin Time (11/29/2019 2:32 PM EDT) P athologist Signature PT 13.5 (H) 9.4 - 12.5 [facility] LABORATORY INR 1.2 [facility] Comment: An INR <2.0 indicates [...] Organization Address City/State/[place] [address] (ABNORMAL) Hepatic Function Panel (11/29/2019 2:32 PM EDT) athologist Signature Total Protein 6.3 6.1 - 8.0 [facility] gm/dL [facility] Albumin 3.6 3.2 - 5.2 [facility] gm/dL [facility] LABORATORY AST 257 (H) 0 - 39 [facility] unit/L [facility]AT[facility] ALT 50 0 - 55 [facility] unit/L [facility]ATORY Alk Phos 84 40 - 130 [facility] unit/L [facility] LABORATORY Total 0.3 0.2 - 1.3 [facility] Bilirubin mg/dL [facility] LABORATORY Bili, Direct 0.1 0.0 - 0.3 [facility] DOV mg/dL [facility] LABORATORY Specimen Anatomical Collection Method Collection Time Receive d Time (Source) Location / / Volume Laterality Blood specimen 11/29/2019 2:32 PM 020 2:32 (specimen) EDT PM EDT Resulting Agency Comment Spec In Lab Gretchen Yoon MD CHEMISTRY ORDERABLES Performing Organization Address City/[facility]/[place] [address] (ABNORMAL) pro-Brain Natriuretic Peptide (11/29/2019 2:32 PM EDT) P athologist Signature ProBNP 272 (H) <=125 pg/mL [facility] Specimen Anatomical Collection Method Collection Time Receive d Time (Source) Location / / Volume Laterality Blood specimen 11/29/2019 2:32 PM 020 2:32 (specimen) EDT PM EDT Resulting Agency Comment Spec In Lab Gretchen Yoon MD CHEMISTRY ORDERABLES Performing Organization Address City/[facility]/[place] [address] Magnesium (11/29/2019 2:32 PM EDT) athologist Signature Magnesium 0.76 0.69 - 1.07 [facility] mmol/L [facility] LABORATORY Specimen Anatomical Collection Method Collection Time Receive d Time (Source) Location / / Volume Laterality Blood specimen 11/29/2019 2:32 PM 020 2:32 (specimen) EDT PM EDT Resulting Agency Comment Spec In Lab Gretchen Yoon MD CHEMISTRY ORDERABLES Performing Organization Address City/State/ZIP Code Phon e Number [address] (ABNORMAL) Basic Metabolic Panel (non-fasting) (11/29/2019 2:32 PM EDT) athologist Signature Glucose Lvl 149 65 - 199 [facility] mg/dL [facility] Comment: Diabetes: >=200 mg/dL plus symp toms BUN 16 10 - 20 mg/dL [facility] Creatinine 0.94 0.80 - 1.50 mg/dL [facility] LABOR[facility]ORY Sodium 135 135 - 145 mmol/L [facility] LAB[facility] Potassium 4.5 3.5 - 5.0 mmol/L [facility] Comment: Please note: ??Patients with WBC >100,00 0 may have falsely elevated Potassium levels. ??For accurate Potassium quantif ication in these patients send serum separator tube (gold top) for subsequent determinations. ??Contact the Clinical Chemistry Laboratory if there are any qu estions. Chloride 105 98 - 107 mmol/L [facility] CO2 15 (L) 22 - 31 mmol/L [facility] Anion Gap 15 5 - 15 mmol/L [facility] Calcium 8.0 (L) 8.5 - 10.5 mg/dL [facility] Estimated GFR 80 >=60 mL/min/1.73 m?? [facility] Comment: The eGFR was calculated using the CKD-EP I equation. As with all creatinine based estimates of kidney function, eGFR values calculated with the CKD-EPI equation are not accurate in patients wi th acute kidney failure, extremes of body mass or the acutely ill. http://Evertale/DHnkf eGFR 93 >=60 mL/min/1.73 m?? [facility] Comment: The eGFR was calculated using the CKD-EP I equation. As with all creatinine based estimates of kidney function, eGFR values calculated with the CKD-EPI equation are not accurate in patients wi th acute kidney failure, extremes of body mass or the acutely ill. http://Evertale/[facility] PURCELLnkf Specimen Anatomical Collection Method Collection Time Receive d Time (Source) Location / / Volume Laterality Blood specimen 11/29/2019 2:32 PM 020 2:32 (specimen) EDT PM EDT Resulting Agency Comment Spec In Lab Gretchen Yoon MD CHEMISTRY ORDERABLES Performing Organization Address City/[facility] [place] [address] EKG 12 Lead (11/29/2019 11:38 AM EDT) [facility] gist Method Time Signature Ventricular rate 60 BPM MUSE SYSTEM Atrial Rate 60 BPM MUSE SYSTEM P-R Interval 140 ms MUSE SYSTEM QRS Duration 86 ms MUSE SYSTEM Q-T Interval 474 ms MUSE SYSTEM QTC Calculated 474 ms MUSE SYSTEM (Bezet) Calculated P [place] 48 degrees MUSE SYSTEM Calculated R [place] 14 degrees MUSE SYSTEM Calculated T [place] 58 degrees MUSE SYSTEM INTERPRETATION Normal sinus [...] Organization Address City/[facility]/ZIP [facility] [place] MUSE SYSTEM CARDIAC CATHETERIZATION (11/29/2019 11:15 AM EDT) Anatomical Region Laterality Modality Other Specimen (Source) Anatomical Location Collection Method / Collectio n Time Received Time / Laterality Volume Narrative 11/30/2019 1:09 PM EDT ?[facility] ? Cardiac Cathete rization/Intervention Report ? Patient Name: Salinas, Angel Luis H. ? Procedure Date: 11/29/2019 ? A #: [id number] ? Primary Physician: Young, Gretchen N ? Case #: [id number] ? File Name: [id number] ? Catheterization Order Number: [id number] ? [facility] ? Final Report [place], [place] ? Patient Name: ? Angel Luis Salinas ? ID#: ?[id number] ? : ?1945 ? Procedure Date: ? [...] procedure was Emergent. The indication for ?the dental laboratory technician apprentice visit is ACS less than or equal [...] dose administered prior to arrival in the dental laboratory technician apprentice. ?Recommended anti-platelet/anti- thrombotic regimen: ?Continue aspirin 81 mg daily fo r indefinitely. ?Continue clopidogrel 75 mg marco a y for 12 months then stop. ?These recommendations are made at the time of the intervention. Patient ?and provider preferences or a c hanging clinical situation may require ?modification of this regimen. C marvult [facility] Interventional Cardiology for ?questions. ? Conclusions: ?* [...] different from the original. [facility] Cardiac Catheterization/Intervention Re port Patient Name: Angel Luis Salinas Procedure Date: 11/29/2019 A #: [id number] Primary Physician: Gretchen Yoon Case #: [id number] File Name: [id number] Catheterization Order Number: [id number] [facility] Final Report [place], [place] Patient Name: Angel Luis Salinas ID#: [id number] : 1945 Procedure Date: November 29, [...] e was Emergent. The indication for the dental laboratory technician apprentice visit is ACS less than or equal [...] for the procedure was Emergent. The [facility] indication for the procedure was S GAETANO [...] this intervention was 10%. The final TI OK flow was 2. Distal 90% Thrombectomy and [...] this intervention was 10%. The final TI OK flow was 2. Vascular Access: Vascular Access [...] administered prior t o arrival in the dental laboratory technician apprentice. Recommended anti-platelet/anti-thrombot ic regimen: Continue aspirin 81 mg daily for indefi nitely. Continue clopidogrel 75 mg daily for 12 months then stop. These recommendations are made at the t loyda of the intervention. Patient and provider preferences or a changing clinical situation may require modification of this regimen. Consult [facility] Interventional Cardiology for questions. Conclusions: * Two [...] Signature POC pH 7.33 (L) 7.35 - [facility] 7.45 [facility] LABORATORY POC PCO2 33 (L) 35 - 45 [facility] mmHg [facility] LABORATORY POC PO2 56 (L) 85 - 104 [facility] LABORATORY POC Base Excess -8.0 (L) -3.0 - 3.0 [facility] K mmol/L [facility] LABORATORY POC HCO3 17.4 (L) 20.0 - [facility] 26.0 [facility] mmol/[facility] LABORATORY POC Sodium 137 135 - 145 [facility] mmol/L [facility] LABORATORY POC Potassium 3.6 3.5 - 5.0 [facility] mmol/L [facility] POC Ionized Ca 1.15 1.15 - [facility] 1.33 [facility] LAB[facility] POC Hematocrit 37.0 (L) 40.0 - [facility] 51.0 % [facility] LABORATORY POC Calc Hgb 12.6 (L) 13.7 - [facility] 17.5 gm/dL [facility] Comment: The calculation of hemoglobin f rom hematocrit assumes a normal MCHC. POC Bgas Loc CC LAB [facility] LABORATORY Specimen Anatomical Collection Method Collection Time Receive d Time (Source) Location / / Volume Laterality Blood specimen 11/29/2019 9:17 AM 020 7:35 (specimen) EDT AM EDT Gretchen Yoon MD CHEMISTRY ORDERABLES Performing Organization Address City/State/[place] [address] EKG 12 Lead (11/29/2019 9:01 AM EDT) Component Value Ref Range Test Analysis Performed Pathologis t Method Time At Signature Ventricular rate 80 BPM MUSE SYSTEM Atrial Rate 79 BPM MUSE SYSTEM QRS Duration 94 ms MUSE SYSTEM Q-T Interval 436 ms MUSE SYSTEM QTC Calculated 502 ms MUSE SYSTEM (Bezet) Calculated R [place] 54 degrees MUSE SYSTEM Calculated T [place] 80 degrees MUSE SYSTEM INTERPRETATION Normal sinus rhythm MUSE SYSTEM Inferior infarct , possibly acute Prolonged QT * ACUTE OK ?? Consider right ventricular involvement in acute [...] 150 mg, Intravenous, ONCE, 1 dose, On [place] 12/07/19 at 1315, Warning Vesicant/Irritant Medication , [...] CONTINUOUS, Starting on 11/29/19 at 1930, Until [place] 11/30/19 at 0029, Please stop drip once [...] Intravenous, ONCE PRN, 1 dose, Starting on [place] 11/30/19 at 1636, Until [place] 11/30/19 at 1636, Per Protocol, Warning Vesicant/Irritant [...] mL/hr 250 mL/hr, Intravenous, CONTINUOUS, Starting on [place] 12/07/19 at 0145, Until [place] 12/07/19 at 0239 levoFLOXacin (LEVAQUIN) 750 mg in New Bag 11/30/2019 11:03 PM EDT 750 mg 100 mL/hr dextrose 5% 150 mL 750 mg, Intravenous, at 100 mL/hr, EVERY 24 HOURS, First dose on [place] 11/30/19 at 2300, Until Discontinued, Routine, Indication [...] 2 g, Intravenous, ONCE, 1 dose, On [facility] 11/29/19 at 1530, Administer over 120 Minutes [...] RN) 150 mg, Intravenous, ONCE, 1 dose, [place] at 1315, Warning Vesicant/Irritant Medication , Routine AMIOdarone (Cordarone; Pacerone) tablet 400 mg 1228 (Given - Provider: Amaya Anderson RN) 400 mg, Oral, 2 TIMES DAILY, First dose on Sun12/08/19 at 1230, Until Discontinued, Routine apixaban (Eliquis) tablet 5 mg 0 925 (Given - Provider: Amaay Anderson RN) 5 mg, Oral, 2 TIMES [...] ONCE, 1 dose, 12/06/19 at 0515, Ad pbx manager over 120 Minutes magnesium sulfate 2 [...] Oral, EVERY 4 HOURS PRN, Startin g [place] 11/30/19 at 2016, Until Sun12/08/19 at 1811, hypokalemia
Administer for serum potassium (mMol/L) of 3.9 - 4 See instructions for Potassium Protocol in online policies.
Routine Or potassium chloride ER (K-Dur/Klor-Con) tablet 40 mEqJump to med 40 mEq, Oral, EVERY 4 HOURS PRN, Startin g [place] 11/30/19 at 2016, Until Sun12/08/19 at 1811, hypokalemia
Administer for serum potassium (mMol/L) of 3.6 - 3.8 See instructions for Potassium Protocol in online policies.
Routine documented in this encounter Care Teams Longwall Shearer Operator Relationship Specialty Start Date End Date France Lam MD PCP - General 05/02/13 02/04/20 [address] [place] [address] documented as of this encounter
--- OUTSIDE RECORDS SUMMARY | 2022-04-11 11:02 | XMS_ITS | Encounter Summary ---
:1945 Author Organization [facility] [place] [address] Care Team Providers Name Role Phone France Lam MD Primary Care Provider Encounter Details Date Type Department Care Team Description 11/30/2019 Orders Only Cardiology [facility] [place] [address] Social History Tobacco Use Types Packs/Day [...] fajardo ? (Age): 1945(74y) Med Rec#: ? [id number] ?Sex: ?M ? Site Loc: ? Ht / Wt: ??(cm)/ (kg) ? Pt. Loc: ? Study Date: ?? 11/29/2019 ?Pt. Type: Tape: ? Referring: Faustino Garduno Reading: Dawit Mejia ([id number]) Boilermaker: [employer] Shirt Creaser: Cedric Eric ([id number]) Interpreting Fellow: Cedric Eric ([phone]) Diagnosis: SUMMARY: 1. Limited bedside echocardiogram perfor med by solar installation crew supervisor buck presser for hypotension following inferior STEMI . 2. [...] ? Mid-Inferior ?Akinetic ? Mid-Inferoseptal ?Hypokinetic ? [place]-Septal ? Normal ? [place]-Anterior ? Normal ? [place]-Lateral ?Normal ? [place]-Inferior ? Hypokinetic ? [place]-Tip ?Normal ? This report has been electronically sign ed by: _ Dawit Mejia MD ? 11/30/2019 12: 53:59 Images reviewed and interpretation rafaela [email or web address] [facility] Cardiac Ultrasound Laboratory Procedure Note Dawit Mejia MD - 11/30/2019Formatti ng of this note might be different from the original. Procedure: Transthoracic Echocardiogram Patient: domenica ACOSTA(Age): 6(74y) Med Rec#: [id number] Sex: M Site Loc: Ht / Wt: (cm)/ (kg) Pt. Loc: Study Date: 11/29/2019 Pt. Type: Tape: Referring: aFustino Garduno Reading: Dawit Mejia ([id number]) Boilermaker: [employer] Shirt Creaser: Cedric Eric ([id number]) Interpreting Fellow: Cedric Eric ([phone]) Diagnosis: SUMMARY: 1. Limited bedside echocardiogram perfor med by solar installation crew supervisor buck presser for hypotension following inferior STEMI . 2. [...] Normal Mid-Posterolateral Akinetic Mid-Inferior Akinetic Mid-Inferoseptal Hypokinetic [place]-Septal Normal [place]-Anterior Normal [place]-Lateral Normal [place]-Inferior Hypokinetic [place]-Tip Normal This report has been electronically sign ed by: _ Dawit Mejia MD 11/30/2019 12:53:59 Images reviewed and interpretation verif ied [facility] Cardiac Ultrasound Laboratory Unknown ECHO ORDERABLES documented in this encounter Visit Diagnoses Not on filedocumented in this encounter Care Teams Engineer Geophysical Laboratory Relationship Specialty Start Date End Date France Lam MD PCP - General 05/02/13 02/04/20 [address] [place] [address] documented as of this encounter
--- OUTSIDE RECORDS SUMMARY | 2022-04-11 11:03 | XMS_ITS | Encounter Summary ---
:1945 Author Organization [place] [address] Care Team Providers Name Role Phone France Lam MD Primary Care Provider Encounter Details Date Type Department Care Team Description 05/13/2013 Orders Only Vascular Surgery at [facility] (xi luis [facility] cardiac/vascular sonographer disease) [facility] (Primary Dx) [place] [address] Social History Tobacco Use Types Packs/Day [...] unspecified documented in this encounter Care Teams Station Installer And Repairer Relationship Specialty Start Date End Date France Lam MD PCP - General 05/02/13 02/04/20 [address] [place] [address] documented as of this encounter
--- OUTSIDE RECORDS SUMMARY | 2022-04-11 11:03 | XMS_ITS | Encounter Summary ---
:1945 [place] [address] Care Team Providers Name Role Phone France Lam MD Primary Care Provider Encounter Details Date Type Department Care Team Description 11/29/2019 Telephone Cardiovascular [facility] Silvio piedra MD [facility] Devin cohn [place] [address] [place] [address] [phone] (Wo rk) Social History Tobacco Use Types [...] 50s EKG: Inferior STEMI Silvio Real MD Director Of Research And Development PGY-4 11/29/2019 documented in this encounter Plan of Treatment Not on filedocumented as of this encounter Visit Diagnoses Not on filedocumented in this encounter Care Teams News Wire Photo Operator Relationship Specialty Start Date End Date France Lam MD PCP - General 05/02/13 02/04/20 [address] [place] [address] documented as of this encounter
--- OUTSIDE RECORDS SUMMARY | 2022-04-11 11:03 | XMS_ITS | Encounter Summary ---
:1945 Author Organization [facility] Address [facility] [place] [address] Care Team Providers Name Role Phone France Lam MD Primary Care Provider Reason for Visit Reason Comments Claudication Encounter Details Date Type Department Care Team Description 05/13/2013 Office Visit Vascular Surgery at David Sim from [facility] MD Bobby peripheral vascular [facility] dis ease, left ([address] [place]) [place], [place] VASCULAR SURGERY [address] [place] [address] [phone] Social History Tobacco Use Types Packs/Day Years [...] unspecified documented in this encounter Care Teams Cnc Machinist 2Nd Shift Relationship Specialty Start Date End Date France Lam MD PCP - General 05/02/13 02/04/20 [address] [place] [address] documented as of this encounter
--- OUTSIDE RECORDS SUMMARY | 2022-04-11 11:03 | XMS_ITS | Encounter Summary ---
:1945 Author Organization [facility] [place] [address] Care Team Providers Name Role Phone France Lam MD Primary Care Provider Encounter Details Date Type Department Care Team Description 05/13/2013 Ancillary Vascular Surgery at [facility] (Primary Appointment [facility] Cesilia [place], [place] Dx) [place] [id number] Social History Tobacco Use Types Packs/Day Years [...] Component Value Ref Test Analysis Performed At [facility] gist Range Method Time Signature VB Text VASCUBASE Report Department: Vascular Surgery Lab Patient: [id number] (ANGEL LUIS [place]) CPT Code: 08521 ICD-9: 440.21 Referring Physician: FRANCE LAM Indication: [...] Posterior Tibial (Ankle) Art derrell ??84 ?0.64 ??[place]- Biphasic ?? Interpretation: RIGHT: ??Mild lower extremity [...] limb documented in this encounter Care Teams City Manager Relationship Specialty Start Date End Date France Lam MD PCP - General 05/02/13 02/04/20 [address] [place] [address] documented as of this encounter
--- OUTSIDE RECORDS SUMMARY | 2022-04-11 11:03 | XMS_ITS | Encounter Summary ---
:1945 [place] [address] Care Team Providers Name Role Phone France Lam MD Primary Care Provider Reason for Visit Auth/Cert Specialty Diagnoses / Procedures Referred By Contact Refer red To Contact Diagnoses STEMI (ST elevation myocardial infarction) STEMI Procedures CARDIAC CATHETERIZATION Referral ID Status Reason Start Date Expiration Date Visits Requ ested Visits Authorized [id number] 1 1 Encounter Details Date Type Department Care Team Description 11/29/2019 Surgery Dry Kiln Operator Gretchen Corral, CARDIAC CATHETERIZATION [facility] [place] [address] [place] [id number] [phone] (Wo rk) Social History Tobacco Use Types [...] Luis Salinas Patient Age: 74 y.o. Language: Bolivian Race: White Ethnicity: Not nor Admit date: [...] months on: antiplatelet therapy at discretion of hoisting engineer - Repeat TTE in 3 months to reassess LV function - Repeat BMP in 1-2 weeks given recent start lisinopril - Referred to lipid clinic for consideration of PCSK-9 inhibitor given STEMI with intolerance of statins - Started on amiodarone this admission for recurrent rapid atrial flutter with rates ~170, recommendcontinued assessment of necessity of rhythm control strategy with hoisting engineer - Amiodarone monitoring recommendations as below [...] please contact your inpatient physician through the [facility] Strategic Solutions Consultant . Issues after hours and on weekends [...] and Compazine. He was transferred directly to [facility] via [facility] for further management. Patient had an emergent PCI with 3 MACARIO stents placed to his RCA, with mild disease of LCX (report pending) at [facility]. He was found to be persistently hypotensive requiring Levo up to 10mcg/min. He was transferred to [facility] after the cath procedure. Bedside RHC showed CI 2.12, PAWP 11, PAP 38/15 indicating hypovolemic state. He received 1L bolus of NS with improvement of his blood pressure to 124/61. History of PAD, HLD - had side reactions to statins - so taking niacin and red rye grain. Chronic active smoker with more than 65 pack years. Family history of [place] in father and two uncles. He's takingbaby [...] ip as described above. On arrival at [facility] he was taken for cardiac cath where [...] the procedure was Emergent. The [facility] indication for the procedure was STEMI (after [...] Electronically signed by: Estefani Harris [facility] ([phone]), at 11/29/2019 4:[address] Head wo Contrast (Generic) (Exam End: 11/30/2019 10:41 AM) Impression Focal hemorrhage with small amount of adjacent edema projecting in the region of the left optic tract. Thank you for letting us participate in the care of this patient. For questions regarding this report, please contact the number below. Electronically signed by: Angel Luis Barboza MD, [facility] ([phone]), at 11/30/2019 12:[address] Head wo [...] below. Electronically signed by: [facility] ([phone]), at 11/30/2019 5:[address] Angiogram [place] (Exam End: 11/30/2019 4:36 PM) Impression Head CT: Stable hemorrhage in the region of the left optic tract. CTA: Negative exam. No abnormal vasculature in the area of hemorrhage. Thank you for letting us participate in the care of this patient. For questions regarding this report, please contact the number below. Electronically signed by: Angel Luis Barboza MD, [facility] ([phone]), at 11/30/2019 5:04 PM MRI Brain wo [...] by: Angel Luis Barboza MD, [facility] ([phone]), at 12/01/2019 8:02 PM XR Chest One [...] Electronically signed by: Merari Collins [facility] ([phone]), at 12/01/2019 3:53 PM XR Chest One [...] Electronically signed by: Roselyn Luciano [facility] ([phone]), at 12/04/2019 6:16 PM MRI Brain wwo Contrast (Generic) (Exam End: 12/05/2019 7:59 PM) Impression No significant interval change. Thank you for letting us participate in the care of this patient. For questions regarding this report, please contact the number below. Electronically signed by: Merari Collins [facility] ([phone]), at 12/05/2019 10:[address] Head wo [...] Electronically signed by: Merari Collins [facility] ([phone]), at 12/06/2019 10:06 PM Pending Studies and Lab Data: N/A Discharge Conditions/Prognosis: stable Discharge to: home Updated Allergies/ADRs: Allergies Allergen Reactions ??? Penicillins Pt doesn't remember reaction ??? Snbxakh-Mnk-Vmu Reductase Inhibitors Stiff neck, upset stomach, back [...] medications at another hospital and then at [facility] you had a stent placed in a [...] FOR ONE MONTH AND THEN STOP. Your hoisting engineer may tell you to start this medication again after one year. Clopidogrel (Plavix) 75 mg daily - This medication will help prevent clots from forming in your blood, which will help protect the stent that was placed in your heart vessel. TAKE THIS FOR ONE YEAR ANDTHEN DISCUSS WITH YOUR ENTERPRISE INTEGRATION DEVELOPER WHETHER TO STOP. Amiodarone 400mg twice daily [...] follow up: Your primary care provider and hoisting engineer will manage your blood thinner (apixaban). You do not need lab monitoring of this medication. Diet: Please consume a healthy diet low in cholesterol Follow up Appointments: 12/10/2019 at 3:10PM with PCP Angel Luis Lott Future Appointments Date Time Provider Department Center 12/23/2019 1:30 PM Alfreda Salas APRN [facility] [id number] 12/26/2019 9:40 AM Merlin Sanchez MD [facility] CARD 4A [facility] 12/30/2019 3:40 PM Gretchen Yoon MD [address] Future Appointments and Orders Future Appointments and Orders Future Appointments Provider Department Dept Phone 12/23/2019 1:30 PM Alfreda Salas APRN Neurosurgery at [facility] Arrive at: Home [phone] Please do not come in for this visit. Your provider will call you at the number you provided. 12/26/2019 9:40 AM Merlin Sanchez MD Cardiology at [facility] Arrive at: Home [phone] Please do not come in for this visit. Your provider will call you at the number you provided. 12/30/2019 3:40 PM Gretchen Yoon MD Cardiology at [facility] Arrive at: Home [phone] Please do not come in for this visit. Your provider will call you at the number you provided. Future Orders Complete By Expires Referral to Cardiac Rehab [FHQ406 Custom] As directed Process Instructions: If no progress note charted, please enter Clinical details in comments. Scheduling Instructions: Questions: My question or request is: STEMI. Cardiac rehab at [facility] Referral to [facility] Treatment [facility] [REF43 Custom] As directed Process Instructions: If no progress note charted, please enter Clinical details in comments. Scheduling Instructions: Questions: My question or request is: patient with inferior stemi with history of statin allergy (rash) - please evaluate for psck9 inhibitor. Referral to Home Health - at DISCHARGE [AOK9309 CPT(R)] As directed Process Instructions: Scheduling Instructions: Comments: DOCUMENTATION FOR [facility] SERVICES PATIENT'S LOCATION: Angel Luis Corcoran [address] [address] (home) Advertising Account Manager's Name: Self In discussion with the attending physician, it is certified that this patient is under his/her care and that MD, or an NEW ACCOUNTS CLERK, SHIRT FOLDER, or PA who is working directly with him/her, had a gkip-fw-wcox encounter that meets the physician lvjw-ll-llrf encounter requirements with this patient on 12/07/2019. [...] for managing ADLs. HOME HEALTH CARE AGENCY: [facility], PHONE: [phone] FAX: [phone] Start of care: 24-48 hours after hospital [...] MD [address] / [place] [address] All A agencies which cover the area of patient's residence have been reviewed, either verbally or in writing, and patient/family have chosen the home health care agency noted. Questions: Agency name and contact information: [facility] Patient location post discharge: Home What services are requested: Registered Nurse Physical Therapy Occupational Therapy Start date: Responsible MD post discharge contact info: PCP Your PCP: France Lam MD [phone] For questions regarding this document or issues relating to this hospitalization on the Cardiology Service, please contact your inpatient physician through the [facility] [employer] Consultant . Issues after hours and on weekends will be handled by the Broke Beater on-call. Patient Instructions: Neurology Your Diagnosis: Left [...] in the neurology clinic at [facility]. See below for the appointment time. [...] 1:30 PM Alfreda Salas APRN Neurosurgery at [facility] Arrive at: Home [phone] Please do not come in for this visit. Your provider will call you at the number you provided. 12/26/2019 9:40 AM Merlin Sanchez MD Cardiology at [facility] Arrive at: Home [phone] Please do not come in for this visit. Your provider will call you at the number you provided. 12/30/2019 3:40 PM Gretchen Yoon MD Cardiology at [facility] Arrive at: Home [phone] Please do not come in for this visit. Your provider will call you at the number you provided. Future Orders Complete By Expires Referral to Cardiac Rehab [[id number] Custom] As directed Process Instructions: If no progress note charted, please enter Clinical details in comments. Scheduling Instructions: Questions: My question or request is: STEMI. Cardiac rehab at [facility] Referral to [facility] Treatment [facility] [REF43 Custom] As directed Process Instructions: If no progress note charted, please enter Clinical details in comments. Scheduling Instructions: Questions: My question or request is: patient with inferior stemi with history of statin allergy (rash) - please evaluate for psck9 inhibitor. Referral to Home Health - at DISCHARGE [YRA1176 CPT(R)] As directed Process Instructions: Scheduling Instructions: Comments: DOCUMENTATION FOR [facility] SERVICES PATIENT'S LOCATION: [address] [address] (home) Advertising Account Manager's Name: Self In discussion with the attending physician, it is certified that this patient is under his/her care and that MD, or an NEW ACCOUNTS CLERK, SHIRT FOLDER, or PA who is working directly with him/her, had a tfvd-pg-iwbq encounter that meets the physician mdxg-kn-soji encounter requirements with this patient on 12/07/2019. [...] for managing ADLs. HOME HEALTH CARE AGENCY: [facility], PHONE: [phone] FAX: [phone] Start of care: 24-48 hours after hospital [...] MD [address] / [place] [address] All A agencies which cover the area of patient's residence have been reviewed, either verbally or in writing, and patient/family have chosen the home health care agency noted. Questions: Agency name and contact information: [facility] Patient location post discharge: Home What services are requested: Registered Nurse Physical Therapy Occupational Therapy Start date: Responsible MD post discharge contact info: PCP Discharge References/Attachments Atrial Fibrillation (Bolivian) Cardiac Rehabilitation (Bolivian) Heart Failure (Bolivian) Heart Failure: Limiting Sodium (Bolivian) Hemorrhagic Stroke: General Info (Bolivian) Smoking: Stopping (Bolivian) Stroke Rehabilitation: General Info (Bolivian) Pulmonary Embolism (Bolivian) Riki Stevens MD PGY-3, Internal Medicine Cardiology S2, #[id number] Associated attestation - Paris Dodd MD - 12/09/2019 4:44 PM EDT Cardiology Attending Discharge Addendum I was the assigned attending hoisting engineer for this clinical encounter. For the [...] complications include novel onset, paroxysmal atrial fibrillation [[id number]: 5] & L-sided diplopia with potential hemineglect [...] My contact information: Paris Matt MD MPH [address], [place] [address] (office); Pager #[phone] Email: documented in this encounter Discharge Instructions Patient InstructionsFiRiki de jesus MD - 12/02/2019 9:56 AM EDT Images from the original note were not included. Why you were hospitalized: You had a heart attack. You received clot-busting medications at another hospital and then at [facility] you had a stent placed in a [...] FOR ONE MONTH AND THEN STOP. Your hoisting engineer may tell you to start this medication again after one year. Clopidogrel (Plavix) 75 mg daily - This medication will help prevent clots from forming in your blood, which will help protect the stent that was placed in your heart vessel. TAKE THIS FOR ONE YEAR ANDTHEN DISCUSS WITH YOUR ENTERPRISE INTEGRATION DEVELOPER WHETHER TO STOP. Amiodarone 400mg twice daily [...] follow up: Your primary care provider and hoisting engineer will manage your blood thinner (apixaban). You do not need lab monitoring of this medication. Diet: Please consume a healthy diet low in cholesterol Follow up Appointments: 12/10/2019 at 3:10PM with PCP Angel Luis Lott Future Appointments Date Time Provider Department Center 12/23/2019 1:30 PM Alfreda Salas APRN [facility] [id number] [facility] 12/26/2019 9:40 AM Merlin Sanchez MD [facility] CARD 4A [facility] 12/30/2019 3:40 PM Gretchen Yoon MD [facility] CARD 4A [facility] Future Appointments and Orders Future Appointments and Orders Future Appointments Provider Department Dept Phone 12/23/2019 1:30 PM Alfreda Salas APRN Neurosurgery at [facility] Arrive at: Home [phone] Please do not come in for this visit. Your provider will call you at the number you provided. 12/26/2019 9:40 AM Merlin Sanchez MD Cardiology at [facility] Arrive at: Home [phone] Please do not come in for this visit. Your provider will call you at the number you provided. 12/30/2019 3:40 PM Gretchen Yoon MD Cardiology at [facility] Arrive at: Home [phone] Please do not come in for this visit. Your provider will call you at the number you provided. Future Orders Complete By Expires Referral to Cardiac Rehab [[id number] Custom] As directed Process Instructions: If no progress note charted, please enter Clinical details in comments. Scheduling Instructions: Questions: My question or request is: STEMI. Cardiac rehab at [facility] Referral to Cholesterol Treatment Center [REF43 Custom] As directed Process Instructions: If no progress note charted, please enter Clinical details in comments. Scheduling Instructions: Questions: My question or request is: patient with inferior stemi with history of statin allergy (rash) - please evaluate for psck9 inhibitor. Referral to Home Health - at DISCHARGE [[id number] CPT(R)] As directed Process Instructions: Scheduling Instructions: Comments: DOCUMENTATION FOR [facility] SERVICES PATIENT'S LOCATION: [address] [address] (home) Advertising Account Manager's Name: Self In discussion with the attending physician, it is certified that this patient is under his/her care and that MD, or an NEW ACCOUNTS CLERK, SHIRT FOLDER, or PA who is working directly with him/her, had a oxsj-ft-zxjd encounter that meets the physician bbiq-tc-zwvt encounter requirements with this patient on 12/07/2019. [...] for managing ADLs. HOME HEALTH CARE AGENCY: [facility], PHONE: [phone] FAX: [phone] Start of care: 24-48 hours after hospital [...] MD [address] / [place] [address] All A agencies which cover the area of patient's residence have been reviewed, either verbally or in writing, and patient/family have chosen the home health care agency noted. Questions: Agency name and contact information: [facility] Patient location post discharge: Home What services are requested: Registered Nurse Physical Therapy Occupational Therapy Start date: Responsible MD post discharge contact info: PCP Your PCP: France Lam MD [phone] For questions regarding this document or issues relating to this hospitalization on the Cardiology Service, please contact your inpatient physician through the [facility] [employer] Consultant . Issues after hours and on weekends will be handled by the Broke Beater on-call. Patient Instructions: Neurology Your Diagnosis: Left [...] in the neurology clinic at [facility]. See below for the appointment time. If you do not have an appointment, you will be called with a time/date for this appointment. ??? Primary Care Provider: Please follow up with your Primary Care Provider within one to 2 weeks ofdischarge. AttachmentsThe following attachments cannot be sent through Care Everywhere. Atrial Fibrillation (Bolivian)Cardiac Rehabilitation (Bolivian)Heart Failure (Bolivian)Heart Failure: Limiting Sodium (Bolivian)Hemorrhagic Stroke: General Info (Bolivian)Smoking: Stopping (Bolivian)Stroke Rehabilitation: General Info (Bolivian)Pulmonary Embolism (Bolivian)documented in this encounter Medications at Time of [...] consulted in the interim. Vikash Rodriguez Pager: [phone] Paris Dodd MD - 12/08/2019 8:57 AM [...] complications include novel onset, paroxysmal atrial fibrillation [[id number]: 5] & L-sided diplopia with potential hemineglect [...] consulted in the interim. Vikash Rodriguez Pager: [phone] Paris Dodd MD - 12/07/2019 9:55 AM [...] complications include novel onset, paroxysmal atrial fibrillation [[id number]: 5] & L-sided diplopia with potential hemineglect [...] complications include novel onset, paroxysmal atrial fibrillation [DDB6LG8JLES: 5] & L-sided diplopia with potential hemineglect [...] complications include novel onset, paroxysmal atrial fibrillation [WRN4VE6KNFR: 5] & L-sided diplopia with potential hemineglect [...] today; additional complications include paroxysmal atrial fibrillation [QQU2KD7WRFQ: 4] c/b possible cardioembolic stroke, ICH from [...] length from neck/greatest diameter to back wall: NAMIBIAN 91, CAU 13: 19 mm CORTES 1, [...] a non-culprit artery. S/P DESx3 in the kylofdbi-dq-rgahde RCA. Aspiration thrombectomy performed, and integrellin bolus x2+ infusion. Nicardipine given during case due to intermittent sluggish flow. 2. TTE, 11/30/19: 1. The left ventricular chamber size is normal. Left ventricular wall thickness is normal. The quantitative left ventricular ejection fraction by biplane Roourke's method is 45%. There are left ventricular [...] complications include novel onset, paroxysmal atrial fibrillation [XLC5MR9UTVC: 5] & L-sided diplopia with potential hemineglect [...] R occipital cardioembolic stroke #Paroxysmal Afib with JH3UBRDS7W score of 5 #New segmental bilateral PEs [...] Glasgow MD PGY1, Internal Medicine Cardiology S2, #[id number] Associated attestation - Paris Dodd MD - 12/05/2019 2:59 PM EDT I was the assigned attending hoisting engineer for this clinical encounter. For the [...] 12/04/2019 10:36 AM EDT Office of Care Management(OCM)/Urban Redevelopment Specialist(CM)/Discharge Planning Service: Cardiology S2 team CM Bernie Alexander,RN,BSN,MA,ACM pgr [phone] Reviewed record and in Cardiology Rounds with MD team,CMs, educational director, WHITE SUGAR SYRUP OPERATOR. Pt is anticipated ready for d/c [...] AD to his PCP and to any [facility] appt for each to have on file. [...] complications include novel onset, paroxysmal atrial fibrillation [FPN3KF5NQQI: 4] & L-sided diplopia with potential hemineglect [...] a non-culprit artery. S/P DESx3 in the ijvpfish-dt-azgrbj RCA. Aspiration thrombectomy performed, and integrellin bolus [...] complications include novel onset, paroxysmal atrial fibrillation [RKK0SB2FOLP: 5] & L-sided diplopia with potential hemineglect [...] R occipital cardioembolic stroke #Paroxysmal Afib with AT2GJPQN8K score of 5 - No anticoagulation for [...] Glasgow MD PGY1, Internal Medicine Cardiology S2, #[id number] I have seen the patient and reviewed [...] in my clinic. Gretchen Yoon MD Pager [phone] Derian Pascual RN - 12/03/2019 9:29 AM [...] Discharge: None Electronically signed: Derian Pascual RN, Urban Redevelopment Specialist Pgr: [phone] 12/03/2019 9:29 AM Gretchen [...] complications include novel onset, paroxysmal atrial fibrillation [QNF6EL0CUUC: 4] & L-sided diplopia with potential hemineglect [...] a non-culprit artery. S/P DESx3 in the nkdisffk-bo-xorisu RCA. Aspiration thrombectomy performed, and integrellin bolus [...] complications include novel onset, paroxysmal atrial fibrillation [BXR7VQ8TLVM: 5] & L-sided diplopia with potential hemineglect [...] [facility] with [facility]CP. Patient voiced strong will to quit smoking now, understood that we have resources available for help. Plan [P]: --Neurologic-- # Concern for Left-Sided Diplopia, r/o Hemineglect # Concern for CVA, last-known well 11/29/19 - MRI showed possible cardioembolic stroke #Afib with QR4OMPGX7H score of 5 - Stroke Team Consulted; [...] Anticoagulation/Arrhythmia # Novel Onset, Paroxsymal Atrial Fibrillation [OBR3PE6PVON: 5] - Hold off anticoagulation for at [...] w straight cath prn # Nutrition - [facility] Diet, 2g Na. -- Hematology/Oncology-- # Mild [...] Glasgow MD PGY1, Internal Medicine Cardiology S2, #3430 I have seen the patient and reviewed the resident's above history and I agree with the details as written. The assessment and plan were formulated in discussion with me and I agree with them as documented. Gretchen Yoon MD Pager [phone] Raul Hein RN - 12/03/2019 5:55 AM [...] Negative mcL Appearance UA Clear Clear Spec Ramer UA 1.026 1.006 - 1.030 Color UA [...] PGY3 Neurology Resident 12/01/2019 Vascular Neurology Pager [phone] Neurology Attending Attestation I evaluated the patient [...] documented. Deepthi Roman MD Vascular Neurology Standard [facility] Swallow Screen: This screen is to be [...] diet as medical provider deems appropriate. Consider PROCESS CONTROL BOARD OPERATOR consult for full evaluation and diet recommendations. [...] complications include novel onset, paroxysmal atrial fibrillation [IWV4PH6ZPTA: 4] & L-sided diplopia with potential hemineglect [...] a non-culprit artery. S/P DESx3 in the senxrzxf-wn-jfrqsd RCA. Aspiration thrombectomy performed, and integrellin bolus [...] complications include novel onset, paroxysmal atrial fibrillation [HFY2XL7VLKS: 5] & L-sided diplopia with potential hemineglect [...] Anticoagulation/Arrhythmia # Novel Onset, Paroxsymal Atrial Fibrillation [BNY8XF4JSZX: 5] - Hold off anticoagulation - pending [...] tamsulosin d/t low BP. # Nutrition - [facility] Diet -- Hematology/Oncology-- # Mild Thrombocytopenia, unclear [...] Glasgow MD PGY1, Internal Medicine Cardiology S2, #7311 I have seen the patient and reviewed [...] the ICU team. Gretchen Yoon MD Pager [phone] Natalia Claros APRN - 12/02/2019 8:38 AM [...] - We are signing off. Please page [phone] with any questions or concerns. For questions please call NSGY pager [phone] Natalia Claros APRN 12/02/2019 8:38 AM Clinical Documentation Improvement: Active Hospital Problems Diagnosis ??? Acute ST elevation myocardial infarction (STEMI) of inferior wall ??? Intracranial hemorrhage ??? Hyperlipidemia ??? Tobacco abuse ??? Claudication from peripheral vascular disease, left Resolved Hospital Problems No resolved problems to display. Tello Hsu, SMALL ELECTRIC ENGINE TECHNICIAN - 12/02/2019 2:06 AM EDT 12/01/192009 [...] Scan in afternoon. Upon arrival back in [facility] placed on low flow NC [...] complications include novel onset, paroxysmal atrial fibrillation [[id number]: 4] & L-sided diplopia with potential hemineglect for which CVA evaluationto be pursued. Active Problems/Subjective: - 11/28: admitted for inferior STEMI, RV failure requiring pressor - got lytics, aspirin and plavix load, heparin gtt, and eptifibatide. 3 MACARIO stents to RCA. [place] cath - low wedge & CVP so [...] a non-culprit artery. S/P DESx3 in the jncrzdbo-yn-umghom RCA. Aspiration thrombectomy performed, and integrellin bolus [...] complications include novel onset, paroxysmal atrial fibrillation [[id number]: 4] & L-sided diplopia with potential hemineglect [...] Anticoagulation/Arrhythmia # Novel Onset, Paroxsymal Atrial Fibrillation [[id number]: 4] - Obtain: TTE - Pending CVA [...] tamsulosin d/t low BP. # Nutrition - [facility] Diet -- Hematology/Oncology-- # Mild Thrombocytopenia, unclear [...] MD, PGY1 PGY3, Internal Medicine Cardiology S2, #[id number] I have seen the patient and reviewed [...] down the line. Gretchen Yoon MD Pager [phone] ?? Gretchen Yoon MD Pager [phone] Natalia Claros APRN - 12/01/2019 1:33 AM [...] per primary team For questions please call [employer] pager [phone] Natalia Claros APRN 12/01/2019 7:42 AM Clinical Documentation Improvement: Active Hospital Problems Diagnosis ??? Acute ST elevation myocardial infarction (STEMI) of inferior wall ??? Intracranial hemorrhage ??? Hyperlipidemia ??? Tobacco abuse ??? Claudication from peripheral vascular disease, left Resolved Hospital Problems No resolved problems to display. Tello Hsu, SMALL ELECTRIC ENGINE TECHNICIAN - 11/30/2019 8:44 PM EDT Respiratory [...] patient comfort and wean FIO2 as tolerated. TELOL HSU, HUA Clement Almaraz - 11/30/2019 4:06 PM EDT Narrative:Visited in response to request for Coremaking Machine Setter services. Pt was awake, alert, oriented and in bed. Assessment:Patient coping positively with stresses of illness/hospitalization at this time. Pt says that he is hoping to get better and pt is living with and has children and grandchildren. Pt haspurpose of life and has reason to get getter and to be with family. Outcome: Provided emotional and spiritual support and encouraging presence. Coremaking Machine Setter services accepted.Conversation to build trusting relationship.Provided pastoral [...] complications include novel onset, paroxysmal atrial fibrillation [[id number]: 4] & L-sided diplopia with potential hemineglect for which CVA evaluationto be pursued. Active Problems/Subjective: - Overnight, CVP < 12 for which a total of 1 L IVF provided - Today AM, patient complains of subjectively reported, left-sided hemineglect with floaters and diplopia [see: exam]. - Otherwise, c/o neck pain 2/2 R IJ Rhodesdale & L radial A line. Otherwise, denies [...] a non-culprit artery. S/P DESx3 in the tenezmod-rg-rxwevu RCA. Aspiration thrombectomy performed, and integrellin bolus [...] complications include novel onset, paroxysmal atrial fibrillation [[id number]: 4] & L-sided diplopia with potential hemineglect [...] Anticoagulation/Arrhythmia # Novel Onset, Paroxsymal Atrial Fibrillation [[id number]: 4] - Obtain: TTE to confirm rhythm [...] tamsulosin d/t low BP. # Nutrition - [facility] Diet -- Hematology/Oncology-- # Mild Thrombocytopenia, unclear [...] MD, PGY3 PGY3, Internal Medicine Cardiology S2, #[id number] I have seen the patient and reviewed [...] down the line. Gretchen Yoon MD Pager [phone] Paola Capps RN - 11/30/2019 6:57 AM EDT PT still requiring 4 of levo, several attempts to titrate down (maps in 70;s) But maps would drop toless than 65. Pt very restless in bed Raising and lowering head denies pain . Integrillin stopped [id number] when bottle complete , urine tea colored [...] PCP: France Lam MD PCP phone #: [phone] Food And Beverage Assistant: None ID/Chief Complaint: Chest pain History [...] and Compazine. He was transferred directly to [facility] via [facility] for further management. Patient had an emergent PCI with 3 MACARIO stents placed to his RCA, with mild disease of LCX (report pending) at [facility]. He was found to be persistently hypotensive requiring Levo up to 10mcg/min. He was transferred to [facility] after the cath procedure. Bedside RHC showed CI 2.12, PAWP 11, PAP 38/15 indicating hypovolemic state. He received 1L bolus of NS with improvement of his blood pressure to 124/61. History of PAD, HLD - had side reactions to statins - so taking niacin and red rye grain. Chronic active smoker with more than 65 pack years. Family history of [place] in father and two uncles. He's takingbaby [...] ??? Penicillins Pt doesn't remember reaction ??? Afhlrvb-Gll-Utu Reductase Inhibitors Stiff neck, upset stomach, back pain Family History: Mother: Father: [place] 2 Uncles with MIs Social History: Tobacco: Current active smoker 1 ppd. 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 Vitals: Last value Range [...] in the last 7068 hours. Invalid input(s): [id number] Heme: No results for input(s): LDH, HAPTOGLOBIN, [...] OSH prior to transfer and PCI at [facility]. Massive inferior STEMI with troponin level 20, currently in CVCC due to pressor requirement. BedsideRHC demonstrated evidence of elevated right sided heart failure, but his wedge was wnl. He received 1L bolus with improvement of his blood pressure and reduction of his pressor requirement. PLAN: Admit to Cardiology, S2 Team Pager # [phone] #Inferior STEMI, LEYLA 149 - Resolving EKG [...] inferior STEMI s/p lytic therapy. Transferred to [facility] and underwent successful PCI of the RCA with MACARIO x3. Gretchen Yoon MD Pager [phone] documented in this encounter Procedure Notes Juventino [...] to the planned procedure. Hand Hygiene: The short range air defense artillery did perform hand hygiene prior to arterial [...] a suspected line-associated infection. Location of Procedure: [facility] Risks and Benefits: The risks [...] to the planned procedure. Hand Hygiene: The short range air defense artillery did perform hand hygiene prior to line [...] side:right An Introducer (PSI Kit) was used. [place]. Insertion Side: right. Insertion Site: internal jugular. Catheter Details: Number of Lumens: 1 Catheter Type: heparin-coated The line was placed over a guidewire. Confirmation of Venous Placement: Venous placement was confirmed by transducing the pressure. Introducer Insertion Attempts: 1 Comments: Floating the Rhodes[place]-Mo Catheter Attempts: 1 Comments: Sterile Dressing: Biopatch [...] better pt back in SR. Please page [phone] for any more cares or concerns Plan [...] complications include novel onset, paroxysmal atrial fibrillation [[id number]: 5]& L-sided diplopia with potential hemineglect for [...] Total Evaluation Minutes, Occupational Therapy: 10 Pager: [phone] FRANCINE Nuñez Occupational Therapy Rehabilitation Department Plan [...] conduction defect Plan of Care - Barbara Badlwin, PT - 12/04/2019 8:50 AM EDT Physical [...] complications include novel onset, paroxysmal atrial fibrillation [[id number]: 5] & L-sided diplopia with potential hemineglect [...] hand rails). Baseline Mobility: Independent. Drives. Shares side stitcher with his , however her mobility is [...] plan as stated. Time IN / OUT: 1570-0649 Total Evaluation Minutes, Physical Therapy: 15(gtx1) Barbara Baldwin, PT Pager: [phone] Physical Therapy Inpatient Rehabilitation Department Plan of [...] he receives all he needs through the [facility]. Consult refused. Romain Tran, MSN, RN-, [facility] Tobacco Ammunition Storage Superintendent [facility] Pager #[phone] Plan of Care - Romain Oglesby OT [...] complications include novel onset, paroxysmal atrial fibrillation [[id number]: 5] & L-sided diplopia with potential hemineglect [...] and measurable assessment of functional outcome. Pager: [phone] ROMAIN OGLESBY OT 12/03/2019 Occupational Therapy Rehabilitation [...] in an outpatient cardiac rehabilitation program at [facility] was discussed. Patient agrees to a referral to this program. His has been a cardiac rehab patient at [facility] and he is familiar with [...] complications include novel onset, paroxysmal atrial fibrillation [VYQ6ZU3XHMD: 5] & L-sided diplopia with potential hemineglect [...] hand rails). Baseline Mobility: Independent. Drives. Shares side stitcher with his , however her mobility is [...] in this evaluation. Time IN / OUT: 3844-5701 Total Evaluation Minutes, Physical Therapy: 25(eval, gtx1) Barbara Baldwin, PT Pager: [phone] Physical Therapy Inpatient Rehabilitation Department Consult Note [...] Please contact JOHANNA NOBLES RN on pager [phone] or the wound care team at [phone] or pager [phone] skin and wound care concerns or questions. [...] Salinas would be surrogate decision maker per [place] surrogate decision making law. Any patient receiving carspousee at [facility] must abide by [place] law. The hierarchy for surrogate decisionmaking is: [...] (i) The agent with financial power of trial attorney or a conservator appointed in [...] Insurance: N/A Prescription Coverage: Yes Preferred Pharmacy: [place] Other: No Primary Care Provider: France Lam MD [phone] Patient/Caregiver Goals of Treatment: Return home Potential Needs for Transition of Care: Rehab/SNF: Based on discussions with the multi-disciplinary healthcare team, the patient would benefit from SNF level of care at discharge. ?? I have met with the patient to discuss discharge planning needs. I have provided the [facility], Officeof Care Management letter from the Precision Lens Technician pertaining to rehab referrals. I have also provided a letter describing our affiliations within the [facility] and educated them about [...] patient [facility]: ?? [facility] [address] [place] [address] ?? [address]. [address] , [place] [address] Note routed to Status Controller who will communicate referrals to facilities and provide any required information. Home Health: If therapies recommend home w/ VNA, the patient has been provided a list of Home Health Agencies/DME vendors which serve their preferred geographic area. A letter describing our affiliations was reviewed with them and they were educated about their right to choose where referrals are placed. Patient requests referral to [facility]. PHONE: [phone] FAX: [phone] Referral routed to the Status Controller for matching with agency/vendor and to provide [...] Insured w/ Medicare. Gets medications filled at [facility] in [place], [place]. Son to transport at discharge Plan: Discharge dispo depending on patient's physical recovery; SNF vs home w/ VNA. A member of the Care Management team will continue to monitor progress, follow for continuity of care and assist with transition of care planning. Derian Pascual RN Pager: [phone] Plan of Care - Estefani Encarnacion RN [...] ??? Penicillins Pt doesn't remember reaction ??? Kvcpdvz-Nyg-Lcq Reductase Inhibitors Stiff neck, upset stomach, back [...] noncontrast head CT and CT of the [place] at 1600 hrs. We will [...] vision concerning for stroke. Patient presented to [facility] in transfer for a STEMI after presenting [...] ??? Penicillins Pt doesn't remember reaction ??? Rogpzey-Zkj-Nkq Reductase Inhibitors Stiff neck, upset stomach, back [...] file Gets together: Not on file Attends sikh service: Not on file Active member of [...] L Elbow flexion 5/5 R, 5/5 L Statuary Painter LE: 5/5 R, 5/5 L Hip flexion [...] PGY3 Neurology Resident 11/30/2019 Vascular Neurology Pager [phone] Standard [facility] Swallow Screen: This screen is to be [...] diet as medical provider deems appropriate. Consider PROCESS CONTROL BOARD OPERATOR consult for full evaluation and diet recommendations. [...] Mejia MD Department of Neurology [facility] Brief Op Note - Gretchen Yoon MD - 11/29/2019 8:38 PM EDT Brief Operative Note Patient Name: Angel Luis Salinas : [id number] MR#: [id number] Case Date: 11/29/2019 Surgeon: Surgeon(s) and Role: * Gretchen Yoon MD - Primary * Aidan Ward MD - Fellow Preoperative diagnosis: Inferior STEMI Postoperative diagnosis: Inferior STEMI Procedure(s) (LRB): CARDIAC CATHETERIZATION (N/A) Findings: Discrete 90% stenosis in the prox-to-mid RCA. Severe diffuse disease in the distal vessel. Discrete LCX stenosis in a non-culprit artery. S/P DESx3 in the zzelttci-jy-wviosd RCA. Aspiration thrombectomy performed, and integrellin bolus [...] are i n the results section. CT [place] W STAT 11/30/2019 4:36 Res [...] Potassium 3.9 3.5 - 5.0 [facility] mmol/L [facility] Comment: Please note: ??Patients [...] Organization Address City/State/[place] [address] (ABNORMAL) Hemogram (12/08/2019 12:39 PM EDT) Analysis Performed At Patho logist Time Signature WBC 9.9 (H) 4.0 - 9.5 [facility] x[facility](3[facility] LABORATORY RBC 4.51 (L) 4.58 - MEL[place] OLIVIA 5.54 [facility] x10(6)/[facility] LABORATORY Hemoglobin 13.0 (L) 13.7 - [place] OLIVIA 16.5 gm/dL [facility] Hematocrit 40.5 40.5 - [place] OLIVIA 48.5 % [facility] MCV 89.8 82.9 - [facility] OLIVIA 93.1 [facility] LABORATORY MCH 28.8 27.5 - [place] OLIVIA 32.1 pg [facility] MCHC 32.1 32.0 - [place] OLIVIA 35.7 gm/dL [facility] Platelets 214 145 - 357 [facility] x10(3)/[facility] LABORATORY RDWSD 49.2 (H) 36.0 - [place] OLIVIA 45.0 [facility] LABORATORY RDWCV 15.1 (H) 11.4 - [facility]OLIVIA 13.8 % [facility] MPV 12.1 7.6 - 12.9 [facility] OLIVIA [facility] LABORATORY nRBC % Auto 0.0 % [facility] nRBC Abs Auto 0.000 0.000 - TimeCastOLIVIA 0.000 [facility] x10(3)/[facility] LABORATORY Specimen Anatomical Collection Method Collection Time Receive d Time (Source) Location / / Volume Laterality Blood specimen 12/08/2019 12:39 0 (specimen) PM EDT 12:47 PM EDT Resulting Agency Comment Spec In Lab Gretchen Yoon MD HEMATOLOGY ORDERABLES Performing Organization Address City/State/ZIP Code Phon e Number [address] Hepatic Function Panel (12/08/2019 6:28 AM EDT) athologist Signature Total Protein 6.6 6.1 - 8.0 M[place] OLIVIA gm/dL [facility] Albumin 3.2 3.2 - 5.2 [place] OLIVIA gm/dL [facility] AST 18 0 - 39 [place] OLIVIA unit/L [facility] ALT 13 0 - 55 [facility] OLIVIA unit/L [facility] Alk Phos 64 40 - 130 [facility] OLIVIA unit/L [facility] Total 0.4 0.2 - 1.3 M[place] OLIVIA Bilirubin mg/dL [facility] Bili, Direct 0.1 0.0 - 0.3 [facility] OLIVIA mg/dL [facility] Specimen Anatomical Collection Method Collection Time Receive d Time (Source) Location / / Volume Laterality Blood specimen Venous Draw / 12/08/2019 6:28 AM 2019 6:36 (specimen) Unknown EDT AM EDT Resulting Agency Comment Spec In Lab Riki Stevens MD CHEMISTRY ORDERABLES Performing Organization Address City/[facility]/ZIP Code Phon e Number [address] (ABNORMAL) TSH (12/08/2019 6:28 AM EDT) athologist Signature TSH 5.27 (H) 0.27 - 4.20 [facility] mcIU/mL [facility] Specimen Anatomical Collection Method Collection Time Receive d Time (Source) Location / / Volume Laterality Blood specimen Venous Draw / 12/08/2019 6:28 AM 2019 6:36 (specimen) Unknown EDT AM EDT Resulting Agency Comment Spec In Lab Darrell Glasgow MD CHEMISTRY ORDERABLES Performing Organization Address City/[facility]/ZIP Code Phon e Number [address] Potassium (12/08/2019 6:28 AM EDT) P athologist Signature Potassium 4.2 3.5 - 5.0 [facility] mmol/L [facility] Comment: Please note: ??Patients [...] Organization Address City/State/[place] [address] (ABNORMAL) Differential, Automated (12/08/2019 12:43 AM EDT) Patholo gist Method Time Signature Neutrophils % 60.7 % [facility] Neutr Abs (ANC) 6.81 (H) 1.70 - [facility] 6.10 [facility] x10(3)/[facility] LABORATORY Lymphocytes % 23.4 % [facility] Lymphocytes Abs 2.6 0.9 - 3.2 [facility] x10(3)/[facility] LABORATORY Monocytes % 10.0 % [facility] Monocyte Abs 1.1 (H) 0.3 - 0.9 [facility] x10(3)/[facility] LABORATORY Eosinophils % 3.7 % [facility] Eosinophils Abs 0.4 0.0 - 0.4 [facility] x10(3)/[facility] LABORATORY Basophils % 1.2 % [facility] Basophils Abs 0.1 0.0 - 0.1 [facility] x10(3)/[facility] LABORATORY Immature Gran % 1.00 % [facility] [...] 0.00 - 0.04 x10(3)/[facility] LABORATORY Specimen Anatomical Collection Method Collection Time Receive d Time (Source) Location / / Volume Laterality Blood specimen 12/08/2019 12:43 0 (specimen) AM EDT 12:52 AM EDT Resulting Agency Comment Spec In Lab Riki Stevens MD HEMATOLOGY ORDERABLES Performing Organization Address City/State/[place] [address] (ABNORMAL) Hemogram (12/08/2019 12:43 AM EDT) Analysis Performed At Patho logist Time Signature WBC 11.2 (H) 4.0 - 9.5 [facility] x10(3)/[facility] LABORATORY RBC 4.46 (L) 4.58 - [facility] OLIVIA 5.54 [facility] x10(6)/[facility] LABORATORY Hemoglobin 13.1 (L) 13.7 - [facility] 16.5 gm/dL [facility] Hematocrit 40.5 40.5 - [facility] OLIVIA 48.5 % [facility] MCV 90.8 82.9 - [facility] 93.1 [facility] LABORATORY MCH 29.4 27.5 - [facility] OLIVIA 32.1 pg [facility] MCHC 32.3 32.0 - [facility] OLIVIA 35.7 gm/dL [facility] Platelets 215 145 - 357 [facility] x10(3)/[facility] LABORATORY RDWSD 49.8 (H) 36.0 - [facility] OLIVIA 45.0 [facility] LABORATORY RDWCV 15.2 (H) 11.4 - [facility] OLIVIA 13.8 % [facility] MPV 12.3 7.6 - 12.9 [facility] LABORATORY nRBC % Auto 0.0 % [facility] nRBC Abs Auto 0.000 0.000 - [facility] Wanamaker 0.000 [facility] x10(3)/[facility] LABORATORY Specimen Anatomical Collection Method Collection Time Receive d Time (Source) Location / / Volume Laterality Blood specimen 12/08/2019 12:43 0 (specimen) AM EDT 12:52 AM EDT Resulting Agency Comment Spec In Lab Riki Stevens MD HEMATOLOGY ORDERABLES Performing Organization Address City/State/ZIP Code Phon e Number [address] Magnesium (12/08/2019 12:43 AM EDT) athologist Signature Magnesium 1.01 0.69 - 1.07 [facility] mmol/L [facility] Specimen Anatomical Collection Method Collection Time Receive d Time (Source) Location / / Volume Laterality Blood specimen 12/08/2019 12:43 0 (specimen) AM EDT 12:52 AM EDT Resulting Agency Comment Spec In Lab Gretchen Yoon MD CHEMISTRY ORDERABLES Performing Organization Address City/State/[place] [address] (ABNORMAL) BMP w/fasting Glucose (12/08/2019 12:43 AM EDT) P athologist Signature Glucose 106 (H) 65 - 99 [facility] Fasting mg/dL [facility] Comment: ?Fasting* Glucose Interpretive C [...] of Diabetes Mellitus, Position Statement from the [place] [employer]. ??Diabete s Care, Volume 33, Supplement 1, Jul 2009 BUN 14 10 - 20 mg/dL [facility] Creatinine 1.16 0.80 - 1.50 [...] Gap 16 (H) 5 - 15 mmol/L [facility] Calcium 8.9 8.5 - [...] of body mass or the acutely ill. [email or web address]/[facility]f eGFR 72 >=60 mL/min/1.73 m?? [facility] Comment: The eGFR was calculated using the CKD-EP I equation. As with all creatinine based estimates of kidney function, eGFR values calculated with the CKD-EPI equation are not accurate in patients wi th acute kidney failure, extremes of body mass or the acutely ill. [email or web address] Specimen Anatomical Collection Method Collection Time Receive d Time (Source) Location / / Volume Laterality Blood specimen 12/08/2019 12:43 0 (specimen) AM EDT 12:52 AM EDT Resulting Agency Comment Spec In Lab Gretchen Yoon MD CHEMISTRY ORDERABLES Performing Organization Address City/State/[place] [address] Heparin (unfractionated) Level (12/08/2019 12:43 AM EDT) athologist Signature Heparin UFH 0.60 IU/mL [facility] Comment: Guidelines for therapeutic unfractionate [...] Organization Address City/State/[place] [address] Potassium (12/07/2019 8:39 PM EDT) athologist Signature Potassium 4.1 3.5 - 5.0 [facility] mmol/L [facility] Comment: Please note: ??Patients [...] Lagos MD CHEMISTRY ORDERABLES Performing Organization Address City/[facility]/[place] [address] Potassium (12/07/2019 4:02 PM EDT) P athologist Signature Potassium 4.0 3.5 - 5.0 MELINA OLIVIA mmol/L [facility] Comment: Please note: ??Patients [...] Yoon MD CHEMISTRY ORDERABLES Performing Organization Address City/[facility]/[place] [address] (ABNORMAL) Hemogram (12/07/2019 4:02 PM EDT) Analysis Performed At Patho logist Time Signature WBC 17.4 (H) 4.0 - 9.5 MELINA OLIVIA x10(3)/[facility] LABORATORY RBC 4.58 4.58 - MELINA OLIVIA 5.54 [facility] x10(6)/[facility] LABORATORY Hemoglobin 13.5 (L) 13.7 - MELINA OLIVIA 16.5 gm/dL [facility] Hematocrit 40.8 40.5 - MELINA OLIVIA 48.5 % [facility] MCV 89.1 82.9 - MELINA OLIVIA 93.1 [facility] LABORATORY MCH 29.5 27.5 - MELINA OLIVIA 32.1 pg [facility] MCHC 33.1 32.0 - MELINA OLIVIA 35.7 gm/dL [facility] Platelets 238 145 - 357 MELINA OLIVIA x10(3)/[facility] LABORATORY RDWSD 48.8 (H) 36.0 - MELINA OLIVIA 45.0 [facility] LABORATORY RDWCV 15.0 (H) 11.4 - [facility] 13.8 % [facility] MPV 12.2 7.6 - 12.9 [facility] LABORATORY nRBC % Auto 0.0 % [facility] nRBC Abs Auto 0.000 0.000 - MELINA MARSHOLIVIA 0.000 [facility] x10(3)/[facility] LABORATORY Specimen Anatomical Collection Method Collection Time Receive d Time (Source) Location / / Volume Laterality Blood specimen 12/07/2019 4:02 PM 020 4:08 (specimen) EDT PM EDT Resulting Agency Comment Spec In Lab Gretchen Yoon MD HEMATOLOGY ORDERABLES Performing Organization Address City/[facility] [place] [address] EKG 12 Lead (12/07/2019 [...] (Bezet) Calculated P -12 degrees MUSE SYSTEM [place] Calculated R 10 degrees MUSE SYSTEM [place] Calculated T -138 degrees MUSE SYSTEM [place] INTERPRETATION Supraventricular tachycardia MUSE SYSTEM Low voltage [...] athologist Signature Potassium 4.2 3.5 - 5.0 [facility] mmol/L [facility] Comment: Please note: ??Patients [...] Lagos MD CHEMISTRY ORDERABLES Performing Organization Address City/[facility] [place] [address] Heparin (unfractionated) Level (12/07/2019 11:43 AM EDT) athologist Signature Heparin UFH 0.59 IU/mL [facility] LABORATORY Comment: Guidelines for therapeutic unfractionate [...] Lagos MD HEMATOLOGY ORDERABLES Performing Organization Address [facility]/[place] [address] Heparin (unfractionated) Level (12/07/2019 5:20 AM EDT) P athologist Signature Heparin UFH 0.53 IU/mL [facility] LABORATORY Comment: Guidelines for therapeutic unfractionate [...] Organization Address City/State/[place] [address] (ABNORMAL) Differential, Automated (12/07/2019 5:20 AM EDT) Patholo gist Method Time Signature Neutrophils % 62.4 % [facility] Neutr Abs (ANC) 5.46 1.70 - [facility] 6.10 [facility] x10(3)/[facility] LABORATORY Lymphocytes % 20.3 % [facility] Lymphocytes Abs 1.8 0.9 - 3.2 [facility] x10(3)/[facility] LABORATORY Monocytes % 11.0 % [facility] Monocyte Abs 1.0 (H) 0.3 - 0.9 [facility] x10(3)/[facility] LABORATORY Eosinophils % 4.5 % [facility] Eosinophils Abs 0.4 0.0 - 0.4 [facility] x10(3)/[facility] LABORATORY Basophils % 0.9 % [facility] Basophils Abs 0.1 0.0 - 0.1 [facility] x10(3)/[facility] LABORATORY Immature Gran % 0.90 [...] 0.00 - 0.04 x10(3)/[facility] LABORATORY Specimen Anatomical Collection Method Collection Time Receive d Time (Source) Location / / Volume Laterality Blood specimen 12/07/2019 5:20 AM 020 5:37 (specimen) EDT AM EDT Resulting Agency Comment Spec In Lab Riki Stevens MD HEMATOLOGY ORDERABLES Performing Organization Address City/State/ZIP Code Phon e Number [place] [id number] HOSPITAL LAB[address]ORY Drive (ABNORMAL) Hemogram (12/07/2019 5:20 AM EDT) Analysis Performed At Patho logist Time Signature WBC 8.7 4.0 - 9.5 [facility] x10(3)/[facility] LABORATORY RBC 4.20 (L) 4.58 - [facility] 5.54 [facility] x10(6)/[facility] LABORATORY Hemoglobin 12.3 (L) 13.7 - [facility] 16.5 gm/dL [facility] Hematocrit 37.4 (L) 40.5 - [facility] 48.5 % [facility] MCV 89.0 82.9 - [facility] 93.1 fL [facility] MCH 29.3 27.5 - [facility] 32.1 pg [facility] MCHC 32.9 32.0 - MELINA MONAE 35.7 gm/dL [facility] Platelets 181 145 - 357 MELINA MONAE x10(3)/[facility] LABORATORY RDWSD 47.7 (H) 36.0 - MELINA MONAE 45.0 [facility] LABORATORY RDWCV 14.8 (H) 11.4 - [facility] OLIVIA 13.8 % [facility] MPV 12.3 7.6 - 12.9 MELINA OLIVIA [facility] LABORATORY nRBC % Auto 0.0 % [facility] nRBC Abs Auto 0.000 0.000 - MELINA MONAE 0.000 [facility] x10(3)/[facility] LABORATORY Specimen Anatomical Collection Method Collection Time Receive d Time (Source) Location / / Volume Laterality Blood specimen 12/07/2019 5:20 AM 020 5:37 (specimen) EDT AM EDT Resulting Agency Comment Spec In Lab Riki Stevens MD HEMATOLOGY ORDERABLES Performing Organization Address City/State/ZIP Code Phon e Number [address] Magnesium (12/07/2019 5:20 AM EDT) P athologist Signature Magnesium 0.89 0.69 - 1.07 [facility] mmol/L [facility] Specimen Anatomical Collection Method Collection Time Receive d Time (Source) Location / / Volume Laterality Blood specimen 12/07/2019 5:20 AM 020 5:37 (specimen) EDT AM EDT Resulting Agency Comment Spec In Lab Gretchen Yoon MD CHEMISTRY ORDERABLES Performing Organization Address City/State/ZIP Code Phon e Number [address] (ABNORMAL) BMP w/fasting Glucose (12/07/2019 5:20 AM EDT) P athologist Signature Glucose 100 (H) 65 - 99 [facility]/dL [facility] Comment: ?Fasting* Glucose Interpretive C [...] of Diabetes Mellitus, Position Statement from the [place] [employer]. ??Diabete s Care, Volume 33, Supplement 1, Jul 2009 BUN 14 10 - 20 mg/dL [facility] Creatinine 0.83 0.80 - [...] Anion Gap 14 5 - 15 mmol/L [facility] Calcium 8.8 8.5 - [...] of body mass or the acutely ill. [email or web address] eGFR 101 >=60 mL/min/1.73 m?? [facility] Comment: The eGFR was calculated using the CKD-EP I equation. As with all creatinine based estimates of kidney function, eGFR values calculated with the CKD-EPI equation are not accurate in patients wi th acute kidney failure, extremes of body mass or the acutely ill. [email or web address] Specimen Anatomical Collection Method Collection Time Receive d Time (Source) Location / / Volume Laterality Blood specimen 12/07/2019 5:20 AM 020 5:37 (specimen) EDT AM EDT Resulting Agency Comment Spec In Lab Gretchen Yoon MD CHEMISTRY ORDERABLES Performing Organization Address City/[facility] [place] [address] Heparin (unfractionated) Level (12/06/2019 10:14 PM EDT) athologist Signature Heparin UFH 0.29 IU/mL [facility] LABORATORY Comment: Guidelines for therapeutic unfractionate [...] Lagos MD HEMATOLOGY ORDERABLES Performing Organization Address City/[facility]/[place] [address] Head wo Contrast [...] For questions regarding this report, please contact [facility] number below. ? Electronically signed by: Merari Collins [facility] ([phone]), at 12/06/2019 10:06 PM Narrative 12/06/2019 10:06 [...] Electronically signed by: Merari Collins [facility] ([phone]), at 12/06/2019 10:06 PM Paris Lagos MD IMG CT ORDERABLES (ABNORMAL) Hemogram (12/06/2019 4:20 PM EDT) Analysis Performed At Patho logist Time Signature WBC 10.4 (H) 4.0 - 9.5 [facility] x[facility](3[facility] LABORATORY RBC 4.32 (L) 4.58 - [facility] OLIVIA 5.54 [facility] x10(6)/[facility] LABORATORY Hemoglobin 12.5 (L) 13.7 - [facility] 16.5 gm/dL [facility] Hematocrit 38.4 (L) 40.5 - [facility] 48.5 % [facility] MCV 88.9 82.9 - [facility] 93.1 [facility] LABORATORY MCH 28.9 27.5 - MELINA OLIVIA 32.1 pg [facility] MCHC 32.6 32.0 - [facility] 35.7 gm/dL [facility] Platelets 194 145 - 357 [facility] x10(3)/[facility] LABORATORY RDWSD 46.9 (H) 36.0 - [facility] 45.0 [facility] LABORATORY RDWCV 14.6 (H) 11.4 - [facility] OLIVIA 13.8 % [facility] MPV 11.9 7.6 - 12.9 [facility] OLIVIA [facility] LABORATORY nRBC % Auto 0.0 % [facility] nRBC Abs Auto 0.000 0.000 - [facility] OLIVIA 0.000 [facility] x10(3)/[facility] LABORATORY Specimen Anatomical Collection Method Collection Time Receive d Time (Source) Location / / Volume Laterality Blood specimen 12/06/2019 4:20 PM 020 4:31 (specimen) EDT PM EDT Resulting Agency Comment Spec In Lab Gretchen Yoon MD HEMATOLOGY ORDERABLES Performing Organization Address City/State/[place] [address] Heparin (unfractionated) Level (12/06/2019 4:20 PM EDT) P athologist Signature Heparin UFH 0.30 IU/mL [facility] LABORATORY Comment: Guidelines for therapeutic unfractionate [...] Organization Address City/State/[place] [address] Heparin (unfractionated) Level (12/06/2019 10:02 AM EDT) athologist Signature Heparin UFH <0.04 IU/mL [facility] LABORATORY Comment: Guidelines for therapeutic unfractionate [...] Organization Address City/State/ZIP Code Phon e Number [address] Magnesium (12/06/2019 3:36 AM EDT) P athologist Signature Magnesium 0.86 0.69 - 1.07 [facility] mmol/L [facility] Specimen Anatomical Collection Method Collection Time Receive d Time (Source) Location / / Volume Laterality Blood specimen 12/06/2019 3:36 AM 020 3:45 (specimen) EDT AM EDT Resulting Agency Comment Spec In Lab Gretchen Yoon MD CHEMISTRY ORDERABLES Performing Organization Address City/State/[place] [address] (ABNORMAL) BMP w/fasting Glucose (12/06/2019 3:36 AM EDT) P athologist Signature Glucose 103 (H) 65 - 99 [facility] Fasting mg/dL [facility] Comment: ?Fasting* Glucose Interpretive C [...] of Diabetes Mellitus, Position Statement from the [place] [employer]. ??Diabete s Care, Volume 33, Supplement 1, Jul 2009 BUN 20 10 - 20 mg/dL [facility] Creatinine 0.88 0.80 - [...] Anion Gap 14 5 - 15 mmol/L [facility] Calcium 8.7 8.5 - [...] of body mass or the acutely ill. [email or web address] HOLD[facility]LE[facility]f eGFR 99 >=60 mL/min/1.73 m?? [facility] Comment: The eGFR was calculated using the CKD-EP I equation. As with all creatinine based estimates of kidney function, eGFR values calculated with the CKD-EPI equation are not accurate in patients wi th acute kidney failure, extremes of body mass or the acutely ill. [email or web address] HOLD[facility]ILLEnkf Specimen Anatomical Collection Method Collection Time Receive d Time (Source) Location / / Volume Laterality Blood specimen 12/06/2019 3:36 AM 020 3:45 (specimen) EDT AM EDT Resulting Agency Comment Spec In Lab Gretchen Yoon MD CHEMISTRY ORDERABLES Performing Organization Address City/State/[place] [address] (ABNORMAL) Hemogram (12/06/2019 3:36 AM EDT) Analysis Performed At Patho logist Time Signature WBC 9.2 4.0 - 9.5 [facility] x10(3[facility] LABORATORY RBC 3.99 (L) 4.58 - MELINA OLIVIA 5.54 [facility] x10(6)/[facility] LABORATORY Hemoglobin 11.9 (L) 13.7 - MELINA OLIVIA 16.5 gm/dL [facility] Hematocrit 35.5 (L) 40.5 - [facility] 48.5 % [facility] MCV 89.0 82.9 - [facility] 93.1 [facility] LABORATORY MCH 29.8 27.5 - MELINA OLIVIA 32.1 pg [facility] MCHC 33.5 32.0 - MELINA OLIVIA 35.7 gm/dL [facility] Platelets 164 145 - 357 [facility] x10(3)/[facility] LABORATORY RDWSD 47.6 (H) 36.0 - MELINA OLIVIA 45.0 [facility] LABORATORY RDWCV 14.7 (H) 11.4 - [facility] OLIVIA 13.8 % [facility] MPV 11.9 7.6 - 12.9 [facility] LABORATORY nRBC % Auto 0.0 % [facility] nRBC Abs Auto 0.000 0.000 - MELINA OLIVIA 0.000 [facility] x10(3)/[facility] LABORATORY Specimen Anatomical Collection Method Collection Time Receive d Time (Source) Location / / Volume Laterality Blood specimen 12/06/2019 3:36 AM 020 3:45 (specimen) EDT AM EDT Resulting Agency Comment Spec In Lab Gretchen Yoon MD HEMATOLOGY ORDERABLES Performing Organization Address City/[facility]/[place] [address] (ABNORMAL) Differential, Automated (12/05/2019 10:52 PM EDT) [facility] Method Time Signature Neutrophils % 61.9 % [facility] Neutr Abs (ANC) 6.02 1.70 - [facility] 6.10 [facility] x10(3)/[facility] LABORATORY Lymphocytes % 22.4 % [facility] Lymphocytes Abs 2.2 0.9 - 3.2 [facility] x10(3)/[facility] LABORATORY Monocytes % 10.4 % [facility] Monocyte Abs 1.0 (H) 0.3 - 0.9 [facility] x10(3)/[facility] LABORATORY Eosinophils % 4.1 % [facility] Eosinophils Abs 0.4 0.0 - 0.4 [facility] x10(3)/[facility] LABORATORY Basophils % 0.7 % [facility] Basophils Abs 0.1 0.0 - 0.1 [facility] x10(3)/[facility] LABORATORY Immature Gran % 0.50 [...] 0.00 - 0.04 x10(3)/[facility] LABORATORY Specimen Anatomical Collection Method Collection Time Receive d Time (Source) Location / / Volume Laterality Blood specimen 12/05/2019 10:52 0 (specimen) PM EDT 10:59 PM EDT Resulting Agency Comment Spec In Lab Mandi Barrera MD HEMATOLOGY ORDERABLES Performing Organization Address City/State/[place] [address] (ABNORMAL) Hemogram (12/05/2019 10:52 PM EDT) Analysis Performed At [facility] logist Time Signature WBC 9.7 (H) 4.0 - 9.5 [facility] x10(3)/[facility] LABORATORY RBC 4.07 (L) 4.58 - MELINA WHITTENCOCK 5.54 [facility] x10(6)/[facility] LABORATORY Hemoglobin 11.9 (L) 13.7 - MELINA WHITTENCOCK 16.5 gm/dL [facility] Hematocrit 36.4 (L) 40.5 - MELINA WHITTENCOCK 48.5 % [facility] MCV 89.4 82.9 - [facility] OLIVIA 93.1 [facility] LABORATORY MCH 29.2 27.5 - MELINA WHITTENCOCK 32.1 pg [facility] MCHC 32.7 32.0 - MELINA WHITTENCOCK 35.7 gm/dL [facility] Platelets 167 145 - 357 [facility] x10(3)/[facility] LABORATORY RDWSD 47.7 (H) 36.0 - MELINA WHITTENCOCK 45.0 [facility] RDWCV 14.6 (H) 11.4 - [facility] 13.8 % [facility] MPV 12.1 7.6 - 12.9 [facility] LABORATORY nRBC % Auto 0.0 % [facility] nRBC Abs Auto 0.000 0.000 - [facility] OLIVIA 0.000 [facility] x10(3)/[facility] LABORATORY Specimen Anatomical Collection Method Collection Time Receive d Time (Source) Location / / Volume Laterality Blood specimen 12/05/2019 10:52 0 (specimen) PM EDT 10:59 PM EDT Resulting Agency Comment Spec In Lab Mandi Barrera MD HEMATOLOGY ORDERABLES Performing Organization Address City/State/[place] [address] Heparin (unfractionated) Level (12/05/2019 10:52 PM EDT) P athologist Signature Heparin UFH <0.04 IU/mL [facility] LABORATORY Comment: Guidelines for therapeutic unfractionate [...] Organization Address City/State/[place] [address] MRI Brain wwo Contrast [...] ALBA Jenkins [facility] ([phone]), at 12/05/2019 10:02 PM Paris Lagos MD IMG MRI ORDERABLES (ABNORMAL) Hemogram (12/05/2019 1:00 PM EDT) Analysis Performed At Patho logist Time Signature WBC 8.7 4.0 - 9.5 [facility] x10(3)/[facility] LABORATORY RBC 4.17 (L) 4.58 - [facility] 5.54 [facility] x10(6)/[facility] LABORATORY Hemoglobin 12.4 (L) 13.7 - [facility] 16.5 gm/dL [facility] Hematocrit 37.0 (L) 40.5 - [facility] 48.5 % [facility] MCV 88.7 82.9 - [facility] 93.1 [facility] LABORATORY MCH 29.7 27.5 - [facility] 32.1 pg [facility] MCHC 33.5 32.0 - [facility] 35.7 gm/dL [facility] Platelets 173 145 - 357 [facility] x10(3)/[facility] LABORATORY RDWSD 47.3 (H) 36.0 - [facility] 45.0 [facility] LABORATORY RDWCV 14.6 (H) 11.4 - [facility] 13.8 % [facility] MPV 12.1 7.6 - 12.9 [facility] LABORATORY nRBC % Auto 0.0 % [facility] nRBC Abs Auto 0.000 0.000 - [facility] 0.000 [facility] x10(3)/[facility] LABORATORY Specimen Anatomical Collection Method Collection Time Receive d Time (Source) Location / / Volume Laterality Blood specimen 12/05/2019 1:00 PM 020 1:13 (specimen) EDT PM EDT Resulting Agency Comment Spec In Lab Gretchen Yoon MD HEMATOLOGY ORDERABLES Performing Organization Address City/State/[place] [address] EKG 12 Lead (12/05/2019 10:52 AM EDT) Component Value Ref Range Test Analysis Performed Pathologis t Method Time At Signature Ventricular rate 72 BPM MUSE SYSTEM Atrial Rate 72 BPM MUSE SYSTEM P-R Interval 138 ms MUSE SYSTEM QRS Duration 96 ms MUSE SYSTEM Q-T Interval 396 ms MUSE SYSTEM QTC Calculated 433 ms MUSE SYSTEM (Bezet) Calculated P [place] 65 degrees MUSE SYSTEM Calculated R [place] 13 degrees MUSE SYSTEM Calculated T [place] 0 degrees MUSE SYSTEM INTERPRETATION Sinus rhythm Occasional Premature ventricular complexe s MUSE SYSTEM Possible Inferior infarct (cited on or before 29-NOV-2019) Abnormal ECG When compared with ECG of 04-DEC-2019 10:43, Sinus rhythm has replaced Atrial fibrillation Vent. rate has decreased BY ??86 BPM Confirmed by MD Ceja Daniel ([id number]) on 12/05/2019 3:55:22 PM Specimen Anatomical Collection Method Collection Time Receive d Time (Source) Location / / Volume Laterality 12/05/2019 10:52 12/05/2019 3:55 AM EDT PM EDT Paris Lagos MD ECG ORDERABLES Performing Organization Address City/State/ZIP Code Phon e Number MUSE SYSTEM Duplex Study for DVT, Bilat legs (12/05/2019 7:00 AM EDT) Component Value Ref Test Analysis Performed At [facility] Range Method Time Signature VB Text Department: Vascular Surgery Lab VASCUBASE Report Patient: [id number] (ANGEL LUIS SALINAS) CPT: 91190 ICD10: I26.99 Referring Physician: GRETCHEN YOON ?? [...] athologist Signature Magnesium 0.87 0.69 - 1.07 [facility] mmol/L [facility] Specimen Anatomical Collection Method Collection Time Receive d Time (Source) Location / / Volume Laterality Blood specimen 12/05/2019 4:18 AM 020 4:31 (specimen) EDT AM EDT Resulting Agency Comment Spec In Lab Gretchen Yoon MD CHEMISTRY ORDERABLES Performing Organization Address City/[facility]/[place] [address] (ABNORMAL) BMP w/fasting Glucose (12/05/2019 4:18 AM EDT) P athologist Signature Glucose 104 (H) 65 - 99 [facility] Fasting mg/dL [facility] Comment: ?Fasting* Glucose Interpretive C [...] of Diabetes Mellitus, Position Statement from the [place] [employer]. ??Diabete s Care, Volume 33, Supplement 1, Jul 2009 BUN 21 (H) 10 - 20 mg/dL [facility] Creatinine 1.02 0.80 - [...] Anion Gap 12 5 - 15 mmol/L [facility] Calcium 8.8 8.5 - [...] of body mass or the acutely ill. [email or web address] HOLDENVILLEnkf eGFR 84 >=60 mL/min/1.73 m?? [facility] Comment: The eGFR was calculated using the CKD-EP I equation. As with all creatinine based estimates of kidney function, eGFR values calculated with the CKD-EPI equation are not accurate in patients wi th acute kidney failure, extremes of body mass or the acutely ill. [email or web address]/[facility] HOLD[facility]LE[facility]f Specimen Anatomical Collection Method Collection Time Receive d Time (Source) Location / / Volume Laterality Blood specimen 12/05/2019 4:18 AM 020 4:31 (specimen) EDT AM EDT Resulting Agency Comment Spec In Lab Gretchen Yoon MD CHEMISTRY ORDERABLES Performing Organization Address City/State/[place] [address] (ABNORMAL) Hemogram (12/05/2019 4:18 AM EDT) Analysis Performed At Patho logist Time Signature WBC 8.6 4.0 - 9.5 [facility] x10(3)/[facility] LABORATORY RBC 4.28 (L) 4.58 - MELINA OLIVIA 5.54 [facility] x10(6)/[facility] LABORATORY Hemoglobin 12.4 (L) 13.7 - [facility] 16.5 gm/dL [facility] Hematocrit 37.3 (L) 40.5 - [facility] 48.5 % [facility] MCV 87.1 82.9 - [facility] 93.1 [facility] LABORATORY MCH 29.0 27.5 - [facility] 32.1 [facility] MCHC 33.2 32.0 - [facility] 35.7 gm/dL [facility] Platelets 163 145 - 357 [facility] x10(3)/[facility] LABORATORY RDWSD 46.4 (H) 36.0 - [facility] 45.0 [facility] [facility] LABORATORY RDWCV 14.4 (H) 11.4 - [facility] 13.8 % [facility] LABORATORY MPV 11.7 7.6 - 12.9 [facility] LABORATORY nRBC % Auto 0.0 % [facility] LABORATORY nRBC Abs Auto 0.000 0.000 - [facility] 0.000 [facility] x10(3)/[facility] LABORATORY Specimen Anatomical Collection Method Collection Time Receive d Time (Source) Location / / Volume Laterality Blood specimen 12/05/2019 4:18 AM 020 4:31 (specimen) EDT AM EDT Resulting Agency Comment Spec In Lab Gretchen Yoon MD HEMATOLOGY ORDERABLES Performing Organization Address City/State/[place] [address] Cardiac for Morphology [...] For questions regarding this report, please contact [facility] number below. ? Electronically signed by: Roselyn Luciano [facility] ([phone]), at 12/04/2019 6:16 PM Narrative 12/04/2019 6:16 [...] from neck/greatest puja meter to back wall: NAMIBIAN 91, CAU 13: ??19 mm CORTES ??1, [...] from neck/greatest puja meter to back wall: NAMIBIAN 91, CAU 13: 19 mm CORTES 1, [...] Electronically signed by: Roselyn Luciano, [facility] ([phone]), at 12/04/2019 6:16 PM Gretchen Yoon MD IMG CT ORDERABLES (ABNORMAL) Hemogram (12/04/2019 12:55 PM EDT) Analysis Performed At Patho logist Time Signature WBC 8.9 4.0 - 9.5 [facility] OLIVIA x10(3)/[facility] LABORATORY RBC 4.69 4.58 - [facility] OLIVIA 5.54 [facility] x10(6)/[facility] LABORATORY Hemoglobin 13.5 (L) 13.7 - [facility] 16.5 gm/dL [facility] LABORATORY Hematocrit 41.7 40.5 - [facility] OLIVIA 48.5 % [facility] LABORATORY MCV 88.9 82.9 - [facility] 93.1 fL [facility] LABORATORY MCH 28.8 27.5 - MELINA OLIVIA 32.1 pg [facility] LABORATORY MCHC 32.4 32.0 - [facility] OLIVIA 35.7 gm/dL [facility] LABORATORY Platelets 196 145 - 357 [facility] x10(3)/[facility] LABORATORY RDWSD 46.7 (H) 36.0 - M[place] OLIVIA 45.0 [facility] LABORATORY RDWCV 14.5 (H) 11.4 - MELINA OLIVIA 13.8 % [facility] LABORATORY MPV 12.1 7.6 - 12.9 MELINA MONAE [facility] LABORATORY nRBC % Auto 0.0 % [facility] LABORATORY nRBC Abs Auto 0.000 0.000 - MELINA MONAE 0.000 [facility] x10(3)/[facility] LABORATORY Specimen Anatomical Collection Method Collection Time Receive d Time (Source) Location / / Volume Laterality Blood specimen 12/04/2019 12:55 0 1:06 (specimen) PM EDT PM EDT Resulting Agency Comment Spec In Lab Gretchen Yoon MD HEMATOLOGY ORDERABLES Performing Organization Address City/[facility]/[place] [address] EKG 12 Lead (12/04/2019 10:43 AM EDT) Component Value Ref Range Test Analysis Performed Pathologis t Method Time At Signature Ventricular rate 158 BPM MUSE SYSTEM Atrial Rate 102 BPM MUSE SYSTEM QRS Duration 92 ms MUSE SYSTEM Q-T Interval 294 ms MUSE SYSTEM QTC Calculated 476 ms MUSE SYSTEM (Bezet) Calculated R [place] 17 degrees MUSE SYSTEM Calculated T [place] 90 degrees MUSE SYSTEM INTERPRETATION Atrial fibrillation with rapid ventricular response MUSE SYSTEM Possible Inferior infarct (cited on or before 29-NOV-2019) Abnormal ECG When compared with ECG of 30-NOV-2019 21:07, Atrial fibrillation has replaced Sinus rhythm Vent. rate has increased BY ??65 BPM Confirmed by MD Ceja Daniel ([id number]) on 12/05/2019 8:59:44 AM Specimen Anatomical Collection Method Collection Time Receive d Time (Source) Location / / Volume Laterality 12/04/2019 10:43 12/05/2019 8:59 AM EDT AM EDT Gretchen Yoon MD ECG ORDERABLES Performing Organization Address City/State/ZIP Code Phon e Number MUSE SYSTEM (ABNORMAL) Magnesium (12/04/2019 4:28 AM EDT) P athologist Signature Magnesium 1.17 (H) 0.69 - 1.07 [facility] mmol/L [facility] LABORATORY Specimen Anatomical Collection Method Collection Time Receive d Time (Source) Location / / Volume Laterality Blood specimen 12/04/2019 4:28 AM 020 4:40 (specimen) EDT AM EDT Resulting Agency Comment Spec In Lab Gretchen Yoon MD CHEMISTRY ORDERABLES Performing Organization Address City/State/[place] [address] (ABNORMAL) BMP w/fasting Glucose (12/04/2019 4:28 AM EDT) athologist Signature Glucose 108 (H) 65 - 99 [facility] Fasting mg/dL [facility] LABORATORY Comment: ?Fasting* Glucose Interpretive C [...] of Diabetes Mellitus, Position Statement from the [place] [employer]. ??Diabete s Care, Volume 33, Supplement 1, Jul 2009 BUN 19 10 - 20 mg/dL [facility] LABORATORY Creatinine 0.89 0.80 - [...] Anion Gap 12 5 - 15 mmol/L [facility] LABORATORY Calcium 8.5 8.5 - [...] of body mass or the acutely ill. [email or web address]/[facility]LE[facility] eGFR 98 >=60 mL/min/1.73 m?? [facility] LABORATORY Comment: The eGFR was calculated using the CKD-EP I equation. As with all creatinine based estimates of kidney function, eGFR values calculated with the CKD-EPI equation are not accurate in patients wi th acute kidney failure, extremes of body mass or the acutely ill. [email or web address]/[facility] HOLD[facility]ILLEnkf Specimen Anatomical Collection Method Collection Time Receive d Time (Source) Location / / Volume Laterality Blood specimen 12/04/2019 4:28 AM 020 4:40 (specimen) EDT AM EDT Resulting Agency Comment Spec In Lab Gretchen Yoon MD CHEMISTRY ORDERABLES Performing Organization Address City/State/[place] [address] (ABNORMAL) Hemogram (12/04/2019 4:28 AM EDT) Analysis Performed At Patho logist Time Signature WBC 7.8 4.0 - 9.5 [facility] x10(3)/[facility] LABORATORY RBC 4.10 (L) 4.58 - [facility] 5.54 [facility] x10(6)/[facility] LABORATORY Hemoglobin 12.0 (L) 13.7 - [facility] 16.5 gm/dL [facility] LABORATORY Hematocrit 36.5 (L) 40.5 - [facility] 48.5 % [facility] LABORATORY MCV 89.0 82.9 - [facility] 93.1 fL [facility] LABORATORY MCH 29.3 27.5 - MELINA MONAE 32.1 pg [facility] LABORATORY MCHC 32.9 32.0 - MELINA MOANE 35.7 gm/dL [facility] LABORATORY Platelets 151 145 - 357 MELINA MARSHOLIVIA x10(3)/[facility] LABORATORY RDWSD 46.9 (H) 36.0 - MELINA MONAE 45.0 [facility] LABORATORY RDWCV 14.4 (H) 11.4 - MELINA MONAE 13.8 % [facility] LABORATORY MPV 12.2 7.6 - 12.9 MELINA MONAE fL [facility] LABORATORY nRBC % Auto 0.0 % [facility] nRBC Abs Auto 0.000 0.000 - MELINA MONAE 0.000 [facility] x10(3)/[facility] LABORATORY Specimen Anatomical Collection Method Collection Time Receive d Time (Source) Location / / Volume Laterality Blood specimen 12/04/2019 4:28 AM 020 4:40 (specimen) EDT AM EDT Resulting Agency Comment Spec In Lab Gretchen Yoon MD HEMATOLOGY ORDERABLES Performing Organization Address City/[facility]/ZIP Code Phon e Number [address] Potassium (12/03/2019 7:55 PM EDT) athologist Signature Potassium 3.9 3.5 - 5.0 [facility] mmol/L [facility] LABORATORY Comment: Please note: ??Patients [...] Organization Address City/State/ZIP Code Phon e Number [address] Potassium (12/03/2019 1:57 PM EDT) athologist Signature Potassium 3.7 3.5 - 5.0 MELINA OLIVIA mmol/L [facility] LABORATORY Comment: Please note: ??Patients [...] Organization Address City/State/[place] [address] (ABNORMAL) Hemogram (12/03/2019 1:57 PM EDT) Analysis Performed At Patho logist Time Signature WBC 8.8 4.0 - 9.5 [facility] x10(3)/[facility] LABORATORY RBC 4.27 (L) 4.58 - MELINA OLIVIA 5.54 [facility] x10(6)/[facility] LABORATORY Hemoglobin 12.5 (L) 13.7 - MELINA OLIVIA 16.5 gm/dL [facility] LABORATORY Hematocrit 37.5 (L) 40.5 - MELINA OLIVIA 48.5 % [facility] LABORATORY MCV 87.8 82.9 - MELINA OLIVIA 93.1 [facility] LABORATORY MCH 29.3 27.5 - MELINA OLIVIA 32.1 pg [facility] LABORATORY MCHC 33.3 32.0 - MELINA OLIVIA 35.7 gm/dL [facility] LABORATORY Platelets 158 145 - 357 [employer] x10(3)/[facility] LABORATORY RDWSD 46.9 (H) 36.0 - MELINA OLIVIA 45.0 [facility] LABORATORY RDWCV 14.5 (H) 11.4 - MELINA OLIVIA 13.8 % [facility] LABORATORY MPV 12.2 7.6 - 12.9 MELINA OLIVIA [facility] LABORATORY nRBC % Auto 0.0 % [facility] LABORATORY nRBC Abs Auto 0.000 0.000 - MELINA OLIVIA 0.000 [facility] x10(3)/[facility] LABORATORY Specimen Anatomical Collection Method Collection Time Receive d Time (Source) Location / / Volume Laterality Blood specimen 12/03/2019 1:57 PM 020 2:21 (specimen) EDT PM EDT Resulting Agency Comment Spec In Lab Gretchen Yoon MD HEMATOLOGY ORDERABLES Performing Organization Address City/State/ZIP Code Phon e Number [address] Magnesium (12/03/2019 4:02 AM EDT) athologist Signature Magnesium 0.79 0.69 - 1.07 [facility] mmol/L [facility] LABORATORY Specimen Anatomical Collection Method Collection Time Receive d Time (Source) Location / / Volume Laterality Blood specimen 12/03/2019 4:02 AM 020 4:16 (specimen) EDT AM EDT Resulting Agency Comment Spec In Lab Gretchen Yoon MD CHEMISTRY ORDERABLES Performing Organization Address City/State/[place] [address] (ABNORMAL) BMP w/fasting Glucose (12/03/2019 4:02 AM EDT) P athologist Signature Glucose 100 (H) 65 - 99 [facility] Fasting mg/dL [facility] LABORATORY Comment: ?Fasting* Glucose Interpretive C [...] of Diabetes Mellitus, Position Statement from the [place] [employer]. ??Diabete s Care, Volume 33, Supplement 1, Jul 2009 BUN 17 10 - 20 mg/dL [facility] LABORATORY Creatinine 0.95 0.80 - [...] Anion Gap 15 5 - 15 mmol/L [facility] LABORATORY Calcium 8.3 (L) 8.5 [...] of body mass or the acutely ill. [email or web address]/[facility] HOLDENVILLEnkf eGFR 92 >=60 mL/min/1.73 m?? [facility] LABORATORY Comment: The eGFR was calculated using the CKD-EP I equation. As with all creatinine based estimates of kidney function, eGFR values calculated with the CKD-EPI equation are not accurate in patients wi th acute kidney failure, extremes of body mass or the acutely ill. [email or web address] Specimen Anatomical Collection Method Collection Time Receive d Time (Source) Location / / Volume Laterality Blood specimen 12/03/2019 4:02 AM 020 4:16 (specimen) EDT AM EDT Resulting Agency Comment Spec In Lab Gretchen Yoon MD CHEMISTRY ORDERABLES Performing Organization Address City/State/[place] [address] (ABNORMAL) Hemogram (12/03/2019 4:02 AM EDT) Analysis Performed At Patho logist Time Signature WBC 9.1 4.0 - 9.5 [facility] x10(3)/[facility] LABORATORY RBC 4.01 (L) 4.58 - [facility] 5.54 [facility] x10(6)/[facility] LABORATORY Hemoglobin 11.8 (L) 13.7 - [facility] 16.5 gm/dL [facility] LABORATORY Hematocrit 35.6 (L) 40.5 - [facility] 48.5 % [facility] LABORATORY MCV 88.8 82.9 - [facility] 93.1 [facility] LABORATORY MCH 29.4 27.5 - [facility] 32.1 pg [facility] LABORATORY MCHC 33.1 32.0 - [facility] 35.7 gm/dL [facility] LABORATORY Platelets 130 (L) 145 - 357 [facility] x10(3)/[facility] LABORATORY RDWSD 46.6 (H) 36.0 - [facility] 45.0 [facility] LABORATORY RDWCV 14.4 (H) 11.4 - [facility] 13.8 % [facility] LABORATORY MPV 12.4 7.6 - 12.9 [facility] LABORATORY nRBC % Auto 0.0 % [facility] LABORATORY nRBC Abs Auto 0.000 0.000 - [facility] 0.000 [facility] x10(3)/[facility] LABORATORY Specimen Anatomical Collection Method Collection Time Receive d Time (Source) Location / / Volume Laterality Blood specimen 12/03/2019 4:02 AM 020 4:16 (specimen) EDT AM EDT Resulting Agency Comment Spec In Lab Gretchen Yoon MD HEMATOLOGY ORDERABLES Performing Organization Address City/State/[place] [address] XR Chest One View [...] Signature WBC 10.6 (H) 4.0 - 9.5 [facility] x10(3)/[facility] LABORATORY RBC 4.00 (L) 4.58 - [facility] 5.54 [facility] x10(6)/[facility] LABORATORY Hemoglobin 11.9 (L) 13.7 - [facility] 16.5 gm/dL [facility] LABORATORY Hematocrit 35.7 (L) 40.5 - [facility] 48.5 % [facility] LABORATORY MCV 89.3 82.9 - [facility] 93.1 [facility] LABORATORY MCH 29.8 27.5 - [facility] 32.1 pg [facility] LABORATORY MCHC 33.3 32.0 - [facility] 35.7 gm/dL [facility] LABORATORY Platelets 120 (L) 145 - 357 [facility] x10(3)/[facility] LABORATORY RDWSD 47.5 (H) 36.0 - [facility] 45.0 [facility] LABORATORY RDWCV 14.6 (H) 11.4 - [facility] 13.8 % [facility] LABORATORY MPV 12.0 7.6 - 12.9 [facility] LABORATORY nRBC % Auto 0.0 % [facility] LABORATORY nRBC Abs Auto 0.000 0.000 - [facility] 0.000 [facility] x10(3)/[facility] LABORATORY Specimen Anatomical Collection Method Collection Time Receive d Time (Source) Location / / Volume Laterality Blood specimen 12/02/2019 12:50 0 1:22 (specimen) PM EDT PM EDT Resulting Agency Comment Spec In Lab Gretchen Yoon MD HEMATOLOGY ORDERABLES Performing Organization Address City/State/[place] [address] Blue Tube HOLD (12/02/2019 4:55 AM EDT) P athologist Signature Blue Hold Sample in [facility] lab. [facility] LABORATORY Specimen Anatomical Collection Method Collection Time Receive d Time (Source) Location / / Volume Laterality Blood specimen Venous Draw / 12/02/2019 4:55 AM 2019 5:03 (specimen) Unknown EDT AM EDT Darrell Glasgow MD HEMATOLOGY ORDERABLES Performing Organization Address City/State/ZIP Code Phon e Number [address] Magnesium (12/02/2019 4:55 AM EDT) athologist Signature Magnesium 0.85 0.69 - 1.07 [facility] mmol/L [facility] LABORATORY Specimen Anatomical Collection Method Collection Time Receive d Time (Source) Location / / Volume Laterality Blood specimen 12/02/2019 4:55 AM 020 5:02 (specimen) EDT AM EDT Resulting Agency Comment Spec In Lab Gretchen Yoon MD CHEMISTRY ORDERABLES Performing Organization Address City/[facility]/[place] [address] (ABNORMAL) BMP w/fasting Glucose (12/02/2019 4:55 AM EDT) athologist Signature Glucose 114 (H) 65 - 99 [facility] Fasting mg/dL [facility] LABORATORY Comment: ?Fasting* Glucose Interpretive C [...] of Diabetes Mellitus, Position Statement from the [place] [employer]. ??Diabete s Care, Volume 33, Supplement 1, Jul 2009 BUN 13 10 - 20 mg/dL [facility] LABORATORY Creatinine 0.93 0.80 - [...] Anion Gap 12 5 - 15 mmol/L [facility] LABORATORY Calcium 8.1 (L) 8.5 [...] of body mass or the acutely ill. [email or web address]://[email or web address]/[facility] HOLDENVILLEnkf eGFR 94 >=60 mL/min/1.73 m?? [facility] LABORATORY Comment: The eGFR was calculated using the CKD-EP I equation. As with all creatinine based estimates of kidney function, eGFR values calculated with the CKD-EPI equation are not accurate in patients wi th acute kidney failure, extremes of body mass or the acutely ill. [email or web address]://[email or web address]/[facility] HOLD[facility]LEnkf Specimen Anatomical Collection Method Collection Time Receive d Time (Source) Location / / Volume Laterality Blood specimen 12/02/2019 4:55 AM 020 5:02 (specimen) EDT AM EDT Resulting Agency Comment Spec In Lab Gretchen Yoon MD CHEMISTRY ORDERABLES Performing Organization Address City/State/[place] [address] (ABNORMAL) Hemogram (12/02/2019 4:55 AM EDT) Analysis Performed At Patho logist Time Signature WBC 9.3 4.0 - 9.5 [facility] x10(3)/[facility] LABORATORY RBC 3.71 (L) 4.58 - MELINA OLIVIA 5.54 [facility] x10(6)/[facility] LABORATORY Hemoglobin 10.8 (L) 13.7 - [facility] 16.5 gm/dL [facility] LABORATORY Hematocrit 33.1 (L) 40.5 - [facility] 48.5 % [facility] LABORATORY MCV 89.2 82.9 - [facility] 93.1 [facility] LABORATORY MCH 29.1 27.5 - [facility] 32.1 pg [facility] LABORATORY MCHC 32.6 32.0 - [facility] 35.7 gm/dL [facility] LABORATORY Platelets 93 (L) 145 - 357 [facility] x10(3)/[facility] LABORATORY RDWSD 47.1 (H) 36.0 - [facility] 45.0 [facility] LABORATORY RDWCV 14.6 (H) 11.4 - [facility] 13.8 % [facility] LABORATORY MPV 11.7 7.6 - 12.9 [facility] LABORATORY nRBC % Auto 0.0 % [facility] LABORATORY nRBC Abs Auto 0.000 0.000 - [facility] 0.000 [facility] x10(3)/[facility] LABORATORY Specimen Anatomical Collection Method Collection Time Receive d Time (Source) Location / / Volume Laterality Blood specimen 12/02/2019 4:55 AM 020 5:02 (specimen) EDT AM EDT Resulting Agency Comment Spec In Lab Gretchen Yoon MD HEMATOLOGY ORDERABLES Performing Organization Address City/State/[place] [address] Transfuse 1 unit platelets, [...] For questions regarding this report, please contact [facility] number below. ? Electronically signed by: Angel Luis Barboza MD, [facility] ([phone]), at 12/01/2019 8:02 PM Narrative 12/01/2019 8:02 [...] For questions regarding this report, please contact [facility] number below. Electronically signed by: Angel Luis Barboza MD, [facility] ([phone]), at 12/01/2019 8:02 PM Gretchen Yoon MD [...] Organization Address City/State/ZIP Code Phon e Number [place] [id number] HOSPITAL LABORATORY Drive Duplex for DVT, Arm, Unilat (12/01/2019 5:08 PM EDT) Component Value Ref Test Analysis Performed At Patholo gist Range Method Time Signature VB Text Department: Vascular Surgery Lab VASCUBASE Report Patient: [id number] (ANGEL LUIS SALINAS) CPT: 34600 ICD10: R60.0 Referring Physician: GRETCHEN YOON ?? [...] For questions regarding this report, please contact [facility] number below. ? Electronically signed by: Merari Collins [facility] ([phone]), at 12/01/2019 3:53 PM Narrative 12/01/2019 3:53 PM EDT EXAMINATION: CT HEAD WO CONTRAST (GENERIC) CLINICAL HISTORY: Headache, intracranial hemorrhage suspected Serial CT scan: please assess for propag ation of known ICH noted on prior Head CT/imaging. TECHNIQUE: CT head performed without intravenous co ntrast administration. COMPARISON: Head CT 11/30/2019. CT angiogram of the [place] 11/01. FINDINGS: Ventricles are normal in size. Basal cis terns are patent. Unchanged hyperdense 2.3 x 0.7 x 0.6 cm tubular hemorrhage projecting along the course of the left optic tract (axial se [facility] 2 image 16), consistent with intraparenchymal hematoma. [...] Head CT 11/30/2019. CT angiogram of the [place] 11/01. FINDINGS: Ventricles are normal [...] Scan, Peripheral Blood (12/01/2019 12:51 PM EDT) [facility] Method Time Signature Plat Estimate Decreased [facility] LABORAT[facility] RBC Morphology Normal [facility] Giant Less than 1 /HPF [facility] Platelets [facility] LABORATORY Specimen Anatomical Collection Method Collection Time Receive d Time (Source) Location / / Volume Laterality Blood specimen 12/01/2019 12:51 0 1:05 (specimen) PM EDT PM EDT Resulting Agency Comment Spec In Lab Riki Stevens MD HEMATOLOGY ORDERABLES Performing Organization Address City/State/[place] [address] (ABNORMAL) Differential, Automated (12/01/2019 12:51 PM EDT) [facility] Method Time Signature Neutrophils % 74.9 % [facility] LABORATORY Neutr Abs (ANC) 6.34 (H) 1.70 - [facility] 6.10 [facility] x10(3)/[facility] LABORATORY Lymphocytes % 11.4 % [facility] LABORATORY Lymphocytes Abs 1.0 0.9 - 3.2 [facility] x10(3)/[facility] LABORATORY Monocytes % 12.4 % [facility] LABORATORY Monocyte Abs 1.0 (H) 0.3 - 0.9 [facility] x10(3)/[facility] LABORATORY Eosinophils % 0.4 % [facility] LABORATORY Eosinophils Abs 0.0 0.0 - 0.4 [facility] x10(3)/[facility] LABORATORY Basophils % 0.4 % [facility] LABORATORY Basophils Abs 0.0 0.0 - 0.1 [facility] x10(3)/[facility] LABORATORY Immature Gran % 0.50 % [...] Pita Gran Abs 0.04 0.00 - 0.04 x10(3)/[facility] LABORATORY Specimen Anatomical Collection Method Collection Time Receive d Time (Source) Location / / Volume Laterality Blood specimen 12/01/2019 12:51 0 1:05 (specimen) PM EDT PM EDT Resulting Agency Comment Spec In Lab Riki Stevens MD HEMATOLOGY ORDERABLES Performing Organization Address City/State/[place] [address] (ABNORMAL) Hemogram (12/01/2019 12:51 PM EDT) Analysis Performed At Patho logist Time Signature WBC 8.4 4.0 - 9.5 [facility] x10(3)/[facility] LABORATORY RBC 3.69 (L) 4.58 - [facility] 5.54 [facility] x10(6)/[facility] LABORATORY Hemoglobin 10.8 (L) 13.7 - [facility] 16.5 gm/dL [facility] HOSPITAL LABORATORY Hematocrit 32.4 (L) 40.5 - [facility] 48.5 % [facility] MCV 87.8 82.9 - [facility] 93.1 [facility] LABORATORY MCH 29.3 27.5 - [facility] OLIVIA 32.1 pg [facility] MCHC 33.3 32.0 - [facility] 35.7 gm/dL [facility] Platelets 72 (L) 145 - 357 [facility] x10(3)/[facility] LABORATORY RDWSD 47.2 (H) 36.0 - [facility] 45.0 [facility] LABORATORY RDWCV 14.6 (H) 11.4 - [facility] 13.8 % [facility] MPV 12.2 7.6 - 12.9 [facility] LABORATORY nRBC % Auto 0.0 % [facility] LAB[facility]ATORY nRBC Abs Auto 0.000 0.000 - [facility] 0.000 [facility] x10(3)/[facility] LABORATORY Specimen Anatomical Collection Method Collection Time Receive d Time (Source) Location / / Volume Laterality Blood specimen 12/01/2019 12:51 0 1:05 (specimen) PM EDT PM EDT Resulting Agency Comment Spec In Lab Riki Stevens MD HEMATOLOGY ORDERABLES Performing Organization Address City/[facility]/ZIP Code Phon e Number [address] (ABNORMAL) Coox2 (12/01/2019 11:42 AM EDT) Analysis Performed At Patho logist Time Signature pO2 Coox 30 mmHg [facility] LABORATORY Hgb Blood Gas 11.6 (L) 13.7 - [facility] 16.5 gm/dL [facility] O2HB Coox 60.8 % [facility] COHB Coox 0.6 % [facility] Comment: Nonsmokers: 0.5-1.5% COHB Smokers: Variable, but usually less than 10% Toxic: 20-30% COHB Lethal: Greater than 60% COHB METHB Coox 0.6 <=1.5 % [facility] LABORAT[facility] Source Coox Mixed Venous [facility] LABOR[facility] Specimen Anatomical Collection Method Collection Time Receive d Time (Source) Location / / Volume Laterality Blood specimen 12/01/2019 11:42 0 (specimen) AM EDT 11:42 AM EDT Gretchen Yoon MD CHEMISTRY ORDERABLES Performing Organization Address City/State/[place] [address] Sedimentation rate (12/01/2019 3:55 AM EDT) P athologist Signature Sed Rate 25 3 - 46 [facility] mm/hr [facility] Comment: Effective June 11, 2019 [...] Winn MD HEMATOLOGY ORDERABLES Performing Organization Address City/[facility]/[place] [address] (ABNORMAL) CRP, acute inflammation [...] Winn MD CHEMISTRY ORDERABLES Performing Organization Address City/[facility]/[place] [address] ABORH Recheck Status (12/01/2019 3:55 AM EDT) [facility] Method Time Signature ABORH Recheck Order Placed [facility] LABORATORY ABORH Type Complete [facility] LABORATORY Specimen Anatomical Collection Method Collection Time Receive d Time (Source) Location / / Volume Laterality Blood specimen 12/01/2019 3:55 AM 020 4:15 (specimen) EDT AM EDT Resulting Agency Comment Spec In Lab Lewis Gee MD BLOOD BANK ORDERABLES Performing Organization Address City/[facility]/[place] [address] Antibody screen (12/01/2019 3:55 AM EDT) [facility] Method Time Signature Ab Screen Negative [facility] LABORATORY Expires at 12/04/2019 [facility] [id number] on: [facility] LABOR[facility]ORY Specimen Anatomical Collection Method Collection Time Receive d Time (Source) Location / / Volume Laterality Blood specimen 12/01/2019 3:55 AM 020 4:15 (specimen) EDT AM EDT Resulting Agency Comment Spec In Lab Lewis Gee MD BLOOD BANK ORDERABLES Performing Organization Address City/State/[place] [address] ABO/Rh Typing (12/01/2019 3:55 AM EDT) athologist Signature ABORh Type AB Pos [facility] LABORATORY Specimen Anatomical Collection Method Collection Time Receive d Time (Source) Location / / Volume Laterality Blood specimen 12/01/2019 3:55 AM 020 4:15 (specimen) EDT AM EDT Resulting Agency Comment Spec In Lab Lewis Gee MD BLOOD BANK ORDERABLES Performing Organization Address City/[facility]/[place] [address] (ABNORMAL) Troponin (12/01/2019 3:55 AM EDT) athologist Signature Troponin-T 4.35 (H) 0.00 - [facility] 0.00 ng/mL [facility] Comment: result rechecked-slw The 99th percentile for Troponin T is le ss than 0.01 ng/mL, any detectable cTnT concentration using this assay should be considered elevated. According to the third universal definit ion of myocardial infarction the following criteria with a clinical prese ntation consistent with acute myocardial ischemia meets the diagnosis for a myocardial infarction ([place]). Detection of a rise and/or fall of [...] additional sample may be indicated. Reference: Third [place] Definition of Myocardial Infarction. Journal of the [place] [employer] 2012;60:1581-98 Specimen Anatomical Collection Method Collection Time Receive d Time (Source) Location / / Volume Laterality Blood specimen 12/01/2019 3:55 AM 020 4:00 (specimen) EDT AM EDT Resulting Agency Comment Spec In Lab Gretchen Yoon MD CHEMISTRY ORDERABLES Performing Organization Address City/[facility]/ZIP Code Phon e Number [address] Magnesium (12/01/2019 3:55 AM EDT) P athologist Signature Magnesium 0.96 0.69 - 1.07 [facility] mmol/L [facility]ORY Specimen Anatomical Collection Method Collection Time Receive d Time (Source) Location / / Volume Laterality Blood specimen 12/01/2019 3:55 AM 020 4:00 (specimen) EDT AM EDT Resulting Agency Comment Spec In Lab Gretchen Yoon MD CHEMISTRY ORDERABLES Performing Organization Address City/State/[place] [address] (ABNORMAL) BMP w/fasting Glucose (12/01/2019 3:55 AM EDT) P athologist Signature Glucose 148 (H) 65 - 99 [facility] Fasting mg/dL [facility] Comment: ?Fasting* Glucose Interpretive C [...] of Diabetes Mellitus, Position Statement from the [place] [employer]. ??Diabete s Care, Volume 33, Supplement 1, Jul 2009 BUN 11 10 - 20 mg/dL [facility] Creatinine 0.96 0.80 - [...] Anion Gap 10 5 - 15 mmol/L [facility] Calcium 7.6 (L) 8.5 [...] of body mass or the acutely ill. [email or web address] eGFR 91 >=60 mL/min/1.73 m?? [facility] Comment: The eGFR was calculated using the CKD-EP I equation. As with all creatinine based estimates of kidney function, eGFR values calculated with the CKD-EPI equation are not accurate in patients wi th acute kidney failure, extremes of body mass or the acutely ill. [email or web address] Specimen Anatomical Collection Method Collection Time Receive d Time (Source) Location / / Volume Laterality Blood specimen 12/01/2019 3:55 AM 020 4:00 (specimen) EDT AM EDT Resulting Agency Comment Spec In Lab Gretchen Yoon MD CHEMISTRY ORDERABLES Performing Organization Address City/State/ZIP Code [place] [address] (ABNORMAL) Hemogram (12/01/2019 3:55 AM EDT) Analysis Performed At [facility] Time Signature WBC 11.0 (H) 4.0 - 9.5 [facility] x10(3)/[facility] LABORATORY RBC 3.46 (L) 4.58 - [facility] 5.54 [facility] x10(6)/[facility] LABORATORY Hemoglobin 10.2 (L) 13.7 - [facility] 16.5 gm/dL [facility] Hematocrit 31.2 (L) 40.5 - [facility] 48.5 % [facility]ORAT[facility] MCV 90.2 82.9 - [facility] 93.1 [facility] LABORATORY MCH 29.5 27.5 - [facility] 32.1 pg [facility] MCHC 32.7 32.0 - [facility] 35.7 gm/dL [facility] Platelets 98 (L) 145 - 357 [facility] x10(3)/[facility] LABORATORY RDWSD 47.9 (H) 36.0 - [facility] 45.0 [facility] LABORATORY RDWCV 14.6 (H) 11.4 - [facility] 13.8 % [facility] MPV 12.3 7.6 - 12.9 [facility] LABORATORY nRBC % Auto 0.0 % [facility] LABOR[facility]ORY nRBC Abs Auto 0.000 0.000 - [facility] 0.000 [facility] x10(3)/[facility] LABORATORY Specimen Anatomical Collection Method Collection Time Receive d Time (Source) Location / / Volume Laterality Blood specimen 12/01/2019 3:55 AM 020 4:00 (specimen) EDT AM EDT Resulting Agency Comment Spec In Lab Gretchen Yoon MD HEMATOLOGY ORDERABLES Performing Organization Address City/State/[place] [address] (ABNORMAL) BLOOD GAS 2 ARTERIAL (11/30/2019 10:39 PM EDT) Analysis Performed At [facility] Time Signature pH Art 7.45 7.35 - [facility] 7.45 [facility]OR[facility]ORY pCO2 Art 23 (L) 35 - 45 [facility] LABORATORY pO2 Art 76 (L) 85 - 104 [facility] LABORATORY HCO3 Art 15.3 (L) 20.0 - [facility] 26.0 [facility] mmol/L [facility] LABORATORY BE Art -8.7 (L) -3.0 - 3.0 [facility] mmol/L [facility] Hgb Blood Gas 11.7 (L) 13.7 - [facility] 16.5 gm/dL [facility] O2HB Art 94.2 94.0 - [facility] 97.0 % [facility] COHB Art 0.5 % [facility] [...] Lactate WB 0.8 0.5 - 2.2 mmol/L [facility] LABORATORY FIO2 Art 100 % [facility] LABORATORY PF Ratio Art 76 [facility] LABORATORY Specimen Anatomical Collection Method Collection Time Receive d Time (Source) Location / / Volume Laterality Blood specimen 11/30/2019 10:39 0 (specimen) PM EDT 10:39 PM EDT Gretchen Yoon MD CHEMISTRY ORDERABLES Performing Organization Address City/[facility]/[place] [address] EKG 12 Lead (11/30/2019 [...] (Bezet) Calculated P 12 degrees MUSE SYSTEM [place] Calculated R 19 degrees MUSE SYSTEM [place] Calculated T -47 degrees MUSE SYSTEM [place] INTERPRETATION Sinus rhythm with Premature supraventricular complexes [...] Yoon MD ECG ORDERABLES Performing Organization Address City/[facility]/ZIP Code Phon e Number MUSE SYSTEM (ABNORMAL) Urinalysis Microscopic Exam (11/30/2019 8:40 PM EDT) P athologist Signature RBC UA 27 (H) 0 - 3 /HPF [facility] WBC UA 4 (H) 0 - 3 /HPF [facility] Hyaline Cast 3 (H) 0 - 2 /LPF [facility] LABORATORY Specimen (Source) Anatomical Collection Method Collection Time Re ceived Time Location / / Volume Laterality Urine specimen 11/30/2019 8:40 11/30/2019 obtained via PM EDT 10:51 PM EDT indwelling urinary catheter (specimen) Resulting Agency Comment Spec In Lab Rossy Winn MD URINE ORDERABLES Performing Organization Address City/[facility]/[place] [address] (ABNORMAL) Urinalysis with reflex Culture (11/30/2019 8:40 PM EDT) Patholo gist Method Time Signature Glucose UA Negative Negative [facility] mg/dL [facility] Protein UA Negative Negative [facility] mg/dL [facility] Bilirubin UA Negative Negative [facility] mg/dL [facility] Comment: Clinical correlation required for [...] LABORATORY Blood UA Moderate (A) Negative mg/dL [facility] Ketones UA 40 (A) Negative mg/dL [facility] Nitrite UA Negative Negative [facility] Leukocytes UA Trace (A) Negative [facility] LABORATORY Appearance UA Clear Clear [facility] Spec Ramer UA 1.026 1.006 - 1.030 [facility] LABORATORY Color UA Yellow Yellow [facility] LABORATORY Culture Reflexed No [facility]OR[facility] Specimen (Source) Anatomical Collection Method Collection Time Re ceived Time Location / / Volume Laterality Urine specimen 11/30/2019 8:40 11/30/2019 obtained via PM EDT 10:51 PM EDT indwelling urinary catheter (specimen) Resulting Agency Comment Spec In Lab Gretchen Yoon MD URINE ORDERABLES Performing Organization Address City/State/[place] [address] (ABNORMAL) pro-Brain Natriuretic Peptide (11/30/2019 8:30 PM EDT) P athologist Signature ProBNP 2,802 (H) <=125 [facility] pg/mL [facility] Specimen Anatomical Collection Method Collection Time Receive d Time (Source) Location / / Volume Laterality Blood specimen Venous Draw / 11/30/2019 8:30 PM 2019 8:36 (specimen) Unknown EDT PM EDT Resulting Agency Comment Spec In Lab Rossy Winn MD CHEMISTRY ORDERABLES Performing Organization Address City/[facility]/ZIP Code [place] [address] (ABNORMAL) Troponin (11/30/2019 8:30 PM EDT) athologist Signature Troponin-T 5.04 (H) 0.00 - [place] MONAE 0.00 ng/mL [facility] Comment: The 99th percentile for Troponin T is le ss than 0.01 ng/mL, any detectable cTnT concentration using this assay should be considered elevated. According to the third universal definit ion of myocardial infarction the following criteria with a clinical prese ntation consistent with acute myocardial ischemia meets the diagnosis for a myocardial infarction ([place]). Detection of a rise and/or fall of [...] additional sample may be indicated. Reference: Third [place] Definition of Myocardial Infarction. Journal of the [place] [employer] 2012;60:1581-98 Specimen Anatomical Collection Method Collection Time Receive d Time (Source) Location / / Volume Laterality Blood specimen Venous Draw / 11/30/2019 8:30 PM 2019 8:36 (specimen) Unknown EDT PM EDT Resulting Agency Comment Spec In Lab Rossy Winn MD CHEMISTRY ORDERABLES Performing Organization Address City/[facility]/ZIP Code [place] [address] Magnesium (11/30/2019 8:30 PM EDT) athologist Signature Magnesium 0.79 0.69 - 1.07 [place] mmol/L [facility] Specimen Anatomical Collection Method Collection Time Receive d Time (Source) Location / / Volume Laterality Blood specimen 11/30/2019 8:30 PM 020 8:35 (specimen) EDT PM EDT Resulting Agency Comment Spec In Lab Gretchen Yoon MD CHEMISTRY ORDERABLES Performing Organization Address City/State/[place] [address] (ABNORMAL) Basic Metabolic Panel (non-fasting) (11/30/2019 8:30 PM EDT) athologist Signature Glucose Lvl 132 65 - 199 [facility] mg/dL [facility] Comment: Diabetes: >=200 mg/dL plus symp toms BUN 12 10 - 20 mg/dL [facility] Creatinine 0.94 0.80 - [...] Anion Gap 11 5 - 15 mmol/L [facility] Calcium 7.9 (L) 8.5 [...] of body mass or the acutely ill. [email or web address] eGFR 93 >=60 mL/min/1.73 m?? [facility] Comment: The eGFR was calculated using the CKD-EP I equation. As with all creatinine based estimates of kidney function, eGFR values calculated with the CKD-EPI equation are not accurate in patients wi th acute kidney failure, extremes of body mass or the acutely ill. [email or web address] Specimen Anatomical Collection Method Collection Time Receive d Time (Source) Location / / Volume Laterality Blood specimen 11/30/2019 8:30 PM 020 8:35 (specimen) EDT PM EDT Resulting Agency Comment Spec In Lab Gretchen Yoon MD CHEMISTRY ORDERABLES Performing Organization Address City/[facility] [place] [address] Blood culture (11/30/2019 8:30 PM EDT) Patholo gist Method Time Signature Blood Culture No growth [place] at 5 days. [facility] Specimen Anatomical Collection Method Collection Time Receive d Time (Source) Location / / Volume Laterality Blood specimen 11/30/2019 8:30 PM 020 9:40 (specimen) EDT PM EDT Comment: L HAND Resulting Agency Comment Spec In Lab Gretchen Yoon MD MICROBIOLOGY - BLOOD ORDERAB LES Performing Organization Address City/[facility]/[place] [address] Blood culture (11/30/2019 8:30 PM EDT) Patholo gist Method Time Signature Blood Culture No growth MELINA [place] at 5 days. [facility] Specimen Anatomical Collection Method Collection Time Receive d Time (Source) Location / / Volume Laterality Blood specimen 11/30/2019 8:30 PM 020 9:40 (specimen) EDT PM EDT Comment: R HAND Resulting Agency Comment Spec In Lab Gretchen Yoon MD MICROBIOLOGY - BLOOD ORDERAB LES Performing Organization Address [facility] [place] [address] XR Chest One View [...] ALBA Watson [facility] ([phone]), at 11/30/2019 8:32 PM Narrative 11/30/2019 8:32 [...] Time Signature pH Art 7.45 7.35 - [facility] 7.45 [facility] pCO2 Art 27 (L) 35 - 45 [facility] mmHg [facility] pO2 Art 68 (L) 85 - 104 [facility] LABORATORY HCO3 Art 18.2 (L) 20.0 - [facility] 26.0 [facility] mmol/[facility] LABORATORY BE Art -5.9 (L) -3.0 - 3.0 [facility] mmol/L [facility] Hgb Blood Gas 12.4 (L) 13.7 - [facility] 16.5 gm/dL [facility] O2HB Art 93.1 (L) 94.0 - [facility] 97.0 % [facility] COHB Art 0.8 % [facility] [...] Lactate WB 1.2 0.5 - 2.2 mmol/L [facility] Flow Art 5.0 LPM [facility] Specimen Anatomical Collection Method Collection Time Receive d Time (Source) Location / / Volume Laterality Blood specimen 11/30/2019 8:09 PM 020 8:09 (specimen) EDT PM EDT Gretchen Yoon MD CHEMISTRY ORDERABLES Performing Organization Address City/State/[place] [address] Angiogram [place] (11/30/2019 4:36 PM EDT) Anatomical [...] CT HEAD WO CONTRAST (GENERIC), CT ANGIOGRAM [place] CLINICAL HISTORY: Headache, intracranial hemorrhage suspected F/U on known ICH - assessing for propaga tion TECHNIQUE: CT head performed without intravenous co ntrast administration. CT angiogram [place] 65 cc Omnipaque 350 administered [...] HEAD WO CONTRAST (GENERI C), CT ANGIOGRAM [place] CLINICAL HISTORY: Headache, intracranial hemorrhage suspected F/U on known ICH - assessing for propaga tion TECHNIQUE: CT head performed without intravenous co ntrast administration. CT angiogram [place] 65 cc Omnipaque 350 administered [...] CT HEAD WO CONTRAST (GENERIC), CT ANGIOGRAM [place] CLINICAL HISTORY: Headache, intracranial hemorrhage suspected F/U on known ICH - assessing for propaga tion TECHNIQUE: CT head performed without intravenous co ntrast administration. CT angiogram [place] 65 cc Omnipaque 350 administered [...] HEAD WO CONTRAST (GENERI C), CT ANGIOGRAM [place] CLINICAL HISTORY: Headache, intracranial hemorrhage suspected F/U on known ICH - assessing for propaga tion TECHNIQUE: CT head performed without intravenous co ntrast administration. CT angiogram [place] 65 cc Omnipaque 350 administered [...] by: Angel Luis Barboza MD, [facility] ([phone]), at 11/30/2019 5:04 PM Gretchen Yoon MD [...] 453 ms MUSE SYSTEM (Bezet) Calculated P [place] 52 degrees MUSE SYSTEM Calculated R [place] 5 degrees MUSE SYSTEM Calculated T [place] -60 degrees MUSE SYSTEM INTERPRETATION Sinus rhythm [...] Nilo ? (Age): 1945(74y) Med Rec#: ? [id number] ?Sex: ?M ? Site Loc: ? [facility] ?Ht / Wt: ??178(cm)/64(kg) Pt. Loc: ?CC[facility] ? BSA: ?1.8 Study Date: ?? 11/30/2019 ?Pt. Type: Inpatient Tape: ? Referring: GILMER Reading: Tello Mejia ([id number]) Bicycle Repairer: Friend, Lolita Diagnosis: *ST elevation (STEMI) myocardial [...] Vmax ?0.58 ? m/sec ? MV deceleration [id number] ? m sec ? MV A-wave Vmax [...] ? Mid-Inferior ?Akinetic ? Mid-Inferoseptal ?Normal ? [place]-Septal ? Normal ? [place]-Anterior ? Normal ? [place]-Lateral ?Normal ? [place]-Inferior ? Hypokinetic ? [place]-Tip ?Normal ? This report has been electronically sign ed by: _ Tello Mejia MD ? 11/30/2019 12: 45:27 Images reviewed and interpretation [facility] Cardiac Ultrasound Laboratory Procedure Note Tello Mejia MD - 11/30/2019Formatti ng of this note might be different from the original. Procedure: Transthoracic Echocardiogram Patient: RITA ACOSTA(Age): [birth year](74y) Med Rec#: [id number] Sex: M Site Loc: [facility] Ht / Wt: 178(cm)/64(kg) Pt. Loc: [facility] BSA: 1.8 Study Date: 11/30/2019 Pt. Type: Inpatie nt Tape: Referring: VANGIEJ Reading: Tello Mejia ([id number]) Bicycle Repairer: Eve Lolita Diagnosis: *ST elevation (STEMI) myocardial [...] MV E-wave Vmax 0.58 m/sec MV deceleration [id number] msec MV A-wave Vmax 0.74 m/sec MV [...] Hypokinetic Mid-Posterolateral Hypokinetic Mid-Inferior Akinetic Mid-Inferoseptal Normal [place]-Septal Normal [place]-Anterior Normal [place]-Lateral Normal [place]-Inferior Hypokinetic [place]-Tip Normal This report has been electronically sign [...] by: Angel Luis Barboza MD, [facility] ([phone]), at 11/30/2019 12:04 PM Narrative 11/30/2019 12:04 [...] Magnesium (11/30/2019 8:30 AM EDT) athologist [facility] Magnesium 0.88 0.69 - 1.07 [facility] mmol/L [facility] Specimen Anatomical Collection Method Collection Time Receive d Time (Source) Location / / Volume Laterality Blood specimen Venous Draw / 11/30/2019 8:30 AM 2019 8:37 (specimen) Unknown EDT AM EDT Resulting Agency Comment Spec In Lab Rossy Winn MD CHEMISTRY ORDERABLES Performing Organization Address City/State/[place] [address] (ABNORMAL) CK (11/30/2019 8:30 AM EDT) athologist [facility] CK, Total 1,645 (H) 0 - 200 [facility] unit/L [facility] Specimen Anatomical Collection Method Collection Time Receive d Time (Source) Location / / Volume Laterality Blood specimen 11/30/2019 8:30 AM 020 8:32 (specimen) EDT AM EDT Resulting Agency Comment Spec In Lab Gretchen Yoon MD CHEMISTRY ORDERABLES Performing Organization Address City/[facility] [facility]/ZIP [facility] [place] [address] (ABNORMAL) Troponin (11/30/2019 8:30 AM EDT) athologist [facility] Troponin-T 8.04 (H) 0.00 - MELINA OLIVIA 0.00 ng/mL [facility] Comment: result rechecked-rancho The 99th percentile for Troponin T is le ss than 0.01 ng/mL, any detectable cTnT concentration using this assay should be considered elevated. According to the third universal definit ion of myocardial infarction the following criteria with a clinical prese ntation consistent with acute myocardial ischemia meets the diagnosis for a myocardial infarction ([place]). Detection of a rise and/or fall of [...] additional sample may be indicated. Reference: Third [place] Definition of Myocardial Infarction. Journal of the [place] [employer] 2012;60:1581-98 Specimen Anatomical Collection Method Collection Time Receive d Time (Source) Location / / Volume Laterality Blood specimen 11/30/2019 8:30 AM 020 8:32 (specimen) EDT AM EDT Resulting Agency Comment Spec In Lab Gretchen Yoon MD CHEMISTRY ORDERABLES Performing Organization Address City/State/[place] [address] EKG 12 Lead (11/30/2019 7:57 AM EDT) Component Value Ref Range Test Analysis Performed Pathologis t Method Time At Signature Ventricular rate 64 BPM MUSE SYSTEM Atrial Rate 64 BPM MUSE SYSTEM P-R Interval 132 ms MUSE SYSTEM QRS Duration 78 ms MUSE SYSTEM Q-T Interval 420 ms MUSE SYSTEM QTC Calculated 433 ms MUSE SYSTEM (Bezet) Calculated P [place] 28 degrees MUSE SYSTEM Calculated R [place] 7 degrees MUSE SYSTEM Calculated T [place] -33 degrees MUSE SYSTEM INTERPRETATION Sinus rhythm [...] Signature Glucose 147 (H) 65 - 99 [facility] Fasting mg/dL [facility] Comment: ?Fasting* Glucose Interpretive C [...] of Diabetes Mellitus, Position Statement from the [place] [employer]. ??Diabete s Care, Volume 33, Supplement 1, Jul 2009 BUN 13 10 - 20 mg/dL [facility] Creatinine 0.90 0.80 - [...] Anion Gap 11 5 - 15 mmol/L [facility] Calcium 7.5 (L) 8.5 [...] of body mass or the acutely ill. [email or web address]/[facility] HOLD[facility]LEnk eGFR 98 >=60 mL/min/1.73 m?? [facility] Comment: The eGFR was calculated using the CKD-EP I equation. As with all creatinine based estimates of kidney function, eGFR values calculated with the CKD-EPI equation are not accurate in patients wi th acute kidney failure, extremes of body mass or the acutely ill. [email or web address]/[facility] HOLD[facility]LEnkf Specimen Anatomical Collection Method Collection Time Receive d Time (Source) Location / / Volume Laterality Blood specimen 11/30/2019 2:15 AM 020 2:29 (specimen) EDT AM EDT Resulting Agency Comment Spec In Lab Gretchen Yoon MD CHEMISTRY ORDERABLES Performing Organization Address City/State/ZIP Code Phon e Number [place] [id number] (ABNORMAL) Hemogram (11/30/2019 2:15 AM EDT) Analysis Performed At Patho logist Time Signature WBC 11.2 (H) 4.0 - 9.5 [facility] x10(3)/[facility] LABORATORY RBC 3.83 (L) 4.58 - [facility] 5.54 [facility] x10(6)/[facility] LABORATORY Hemoglobin 11.4 (L) 13.7 - [facility] 16.5 gm/dL [facility] Hematocrit 35.2 (L) 40.5 - [facility] 48.5 % [facility] MCV 91.9 82.9 - [facility] 93.1 fL [facility] MCH 29.8 27.5 - [facility] 32.1 [facility] LABORATORY MCHC 32.4 32.0 - MELINA WHITTENCOCK 35.7 gm/dL [facility] Platelets 122 (L) 145 - 357 MELINA MARSHOLIVIA x10(3)/[facility] LABORATORY RDWSD 49.8 (H) 36.0 - MELINA WHITTENCOCK 45.0 [facility] LABORATORY RDWCV 14.8 (H) 11.4 - MELINA OLIVIA 13.8 % [facility] MPV 12.1 7.6 - 12.9 MELINA MONAE [facility] LABORATORY nRBC % Auto 0.0 % [facility] nRBC Abs Auto 0.000 0.000 - MELINA MARSHOLIVIA 0.000 [facility] x10(3)/[facility] LABORATORY Specimen Anatomical Collection Method Collection Time Receive d Time (Source) Location / / Volume Laterality Blood specimen 11/30/2019 2:15 AM 020 2:29 (specimen) EDT AM EDT Resulting Agency Comment Spec In Lab Gretchen Yoon MD HEMATOLOGY ORDERABLES Performing Organization Address City/[facility]/ZIP Code Phon e Number [address] (ABNORMAL) CK (11/30/2019 2:15 AM EDT) [facility] CK, Total 1,969 (H) 0 - 200 [facility] unit/L [facility] Specimen Anatomical Collection Method Collection Time Receive d Time (Source) Location / / Volume Laterality Blood specimen 11/30/2019 2:15 AM 020 2:29 (specimen) EDT AM EDT Resulting Agency Comment Spec In Lab Gretchen Yoon MD CHEMISTRY ORDERABLES Performing Organization Address City/State/[place] [address] (ABNORMAL) Troponin (11/30/2019 2:15 AM EDT) [facility] Troponin-T 11.73 (H) 0.00 - MELINA WHITTENCOCK 0.00 ng/mL [facility] Comment: result rechecked-slw The 99th percentile for Troponin T is le ss than 0.01 ng/mL, any detectable cTnT concentration using this assay should be considered elevated. According to the third universal definit ion of myocardial infarction the following criteria with a clinical prese ntation consistent with acute myocardial ischemia meets the diagnosis for a myocardial infarction ([place]). Detection of a rise and/or fall of [...] additional sample may be indicated. Reference: Third [place] Definition of Myocardial Infarction. Journal of the [place] College [employer] 2012;60:1581-98 result rechecked- The 99th percentile for Troponin T is le ss than 0.01 ng/mL, any detectable cTnT concentration using this assay should be considered elevated. According to the third universal definit ion of myocardial infarction the following criteria with a clinical prese ntation consistent with acute myocardial ischemia meets the diagnosis for a myocardial infarction ([place]). Detection of a rise and/or fall of [...] additional sample may be indicated. Reference: Third [place] Definition of Myocardial Infarction. Journal of the [place] [employer] 2012;60:1581-98 Corrected from 11.73 ng/ml [HI] on 11/29 3:11:51 EDT by Debi Hawley Specimen Anatomical Collection Method Collection Time Receive d Time (Source) Location / / Volume Laterality Blood specimen 11/30/2019 2:15 AM 020 2:29 (specimen) EDT AM EDT Resulting Agency Comment Spec In Lab Gretchen Yoon MD CHEMISTRY ORDERABLES Performing Organization Address City/[facility]/ZIP Code Phon e Number [address] LDL Cholesterol, Direct (11/30/2019 2:15 AM EDT) P athologist Signature LDL Chol 156 mg/dL [facility] LABORATORY Comment: Lowest Risk: <100 mg/dL Lower Risk: 100-129 mg/dL Borderline High Risk: 130-159 mg/dL High Risk: 160-189 mg/dL Very High Risk: >zy=605 mg/dL Specimen Anatomical Collection Method Collection Time Receive d Time (Source) Location / / Volume Laterality Blood specimen 11/30/2019 2:15 AM 020 2:29 (specimen) EDT AM EDT Resulting Agency Comment Spec In Lab Gretchen Yoon MD CHEMISTRY ORDERABLES Performing Organization Address City/[facility]/ZIP Code Phon e Number [address] (ABNORMAL) Hemoglobin A1c (11/30/2019 2:15 AM EDT) Analysis Performed At Patho logist Time Signature Hemoglobin A1C 6.3 (H) 4.3 - 5.6 [facility] LABORATORY Comment: Reference Range: 4.3 [...] Mellitus, Diabetes Care 2013; 36: Suppl. 1, G78-69 Est Avg Gluc See note mg/dL [facility] [...] with hemoglobinopathies. Additional resources are available on [facility] ADA website. Kiko CARBAJAL, Jenn J, Silas R, et al. ??Tr anslating the A1C assay into estimated average glucose values. ??Diabetes Care 2008:31(8):4991-5410. Specimen Anatomical Collection Method Collection Time Receive d Time (Source) Location / / Volume Laterality Blood specimen 11/30/2019 2:15 AM 020 2:29 (specimen) EDT AM EDT Resulting Agency Comment Spec In Lab Gretchen Yoon MD CHEMISTRY ORDERABLES Performing Organization Address City/State/[place] [address] Lipid Panel (Reflex Direct LDL) (11/30/2019 2:15 AM EDT) athologist Signature Chol, Total 195 mg/dL [facility] Comment: Lower Risk: <200 mg/dL Average Risk: 200-239 mg/dL Higher Risk: >hr=706 mg/dL Triglycerides 93 mg/dL [facility] Comment: Average Risk/Lower Risk: <150 mg/dL Borderline High Risk: 150-199 mg/dL High Risk: 200-499 mg/dL Very High Risk: >mw=679 mg/dL HDL 32 mg/dL [facility] Comment: Males: ?? Higher Risk: <40 mg/dL Females: ?? HIgher Risk: <50 mg/dL LDL Cholesterol 144 mg/dL [facility] Comment: Lowest Risk: <100 mg/dL Lower Risk: 100-129 mg/dL Borderline High Risk: 130-159 mg/dL High Risk: 160-189 mg/dL Very High Risk: >ym=161 mg/dL Chol/HDL Ratio 6.1 ratio [facility] Lipid Interpretation See Note [facility] Comment: Lipid management should be guided by a p atient? s ASCVD risk, goals and preferences. ACC/AHA Guidelines recommend high intens ity statin if clinical ASCVD or LDL greater than or equal to 190 mg/dL. [email or web address] Adults aged 40-75 with LDL 70-189 mg/dL should have their 10 year ASCVD risk estimated with the ACC/AHA ASCVD risk es timator http://tools.acc.org/KMZLJ-Ppzw-Yvqnfrjb r/ Statin should be discussed if risk [...] Organization Address City/State/[place] [address] (ABNORMAL) CK (11/29/2019 6:35 PM EDT) athologist Signature CK, Total 2,780 (H) 0 - 200 [facility] unit/L [facility] Specimen Anatomical Collection Method Collection Time Receive d Time (Source) Location / / Volume Laterality Blood specimen 11/29/2019 6:35 PM 020 6:53 (specimen) EDT PM EDT Resulting Agency Comment Spec In Lab Gretchen Yoon MD CHEMISTRY ORDERABLES Performing Organization Address City/State/[place] [address] (ABNORMAL) Troponin (11/29/2019 6:35 PM EDT) athologist Signature Troponin-T 17.60 (H) 0.00 - [facility] 0.00 ng/mL [facility] Comment: result rechecked-az The 99th percentile for Troponin T is le ss than 0.01 ng/mL, any detectable cTnT concentration using this assay should be considered elevated. According to the third universal definit ion of myocardial infarction the following criteria with a clinical prese ntation consistent with acute myocardial ischemia meets the diagnosis for a myocardial infarction ([place]). Detection of a rise and/or fall of [...] additional sample may be indicated. Reference: Third [place] Definition of Myocardial Infarction. Journal of the [place] College of [employer]iology 2012;60:1581-98 Specimen Anatomical Collection Method Collection Time Receive d Time (Source) Location / / Volume Laterality Blood specimen 11/29/2019 6:35 PM 020 6:53 (specimen) EDT PM EDT Resulting Agency Comment Spec In Lab Gretchen Yoon MD CHEMISTRY ORDERABLES Performing Organization Address City/State/[place] [address] EKG 12 Lead (11/29/2019 3:58 PM EDT) [facility] gist Method Time Signature Ventricular rate 73 BPM MUSE SYSTEM Atrial Rate 73 BPM MUSE SYSTEM P-R Interval 152 ms MUSE SYSTEM QRS Duration 84 ms MUSE SYSTEM Q-T Interval 404 ms MUSE SYSTEM QTC Calculated 445 ms MUSE SYSTEM (Bezet) Calculated P [place] 50 degrees MUSE SYSTEM Calculated R [place] -4 degrees MUSE SYSTEM Calculated T [place] 19 degrees MUSE SYSTEM INTERPRETATION Sinus rhythm [...] Devin Solis [facility] ([phone]), at 11/29/2019 5:06 PM --------ORIGINAL REPORT -------- EXAMINATION: XR CHEST ONE VIEW CLINICAL HISTORY: stemi (as entered by o [facility] provider in the order requisition) [...] lung apex is excluded from the imaged [id number]. IMPRESSION: 1. ??New right internal jugular pulmonar [...] Devin Solis [facility] ([phone]), at 11/29/2019 4:36 PM Impressions 11/29/2019 4:36 [...] Devin Solis [facility] ([phone]), at 11/29/2019 4:36 PM Narrative 11/29/2019 4:36 [...] lung apex is excluded from the imaged [id number]. Procedure Note Estefani Harris MD - 11/29/2019Formattin [...] lung apex is excluded from the imaged [id number]. IMPRESSION 1. New right internal jugular pulmonary [...] number below. Electronically signed by: Devin Solis [facility] ([phone]), at 11/29/2019 4:36 PM Juventino Concepcion MD IMG DX ORDERABLES (ABNORMAL) Differential, Automated (11/29/2019 2:32 PM EDT) [facility] Method Time Signature Neutrophils % 83.8 % [facility] Neutr Abs (ANC) 12.12 (H) 1.70 - [facility] 6.10 [facility] x10(3)/[facility] LABORATORY Lymphocytes % 9.1 % [facility] Lymphocytes Abs 1.3 0.9 - 3.2 [facility] x10(3)/[facility] LABORATORY Monocytes % 6.2 % [facility] Monocyte Abs 0.9 0.3 - 0.9 [facility] x10(3)/[facility] LABORATORY Eosinophils % 0.0 % [facility] Eosinophils Abs 0.0 0.0 - 0.4 [facility] x10(3)/[facility] LABORATORY Basophils % 0.3 % [facility] Basophils Abs 0.0 0.0 - 0.1 [facility] x10(3)/[facility] LABORATORY Immature Gran % 0.60 % MAY[facility] [...] 0.00 - 0.04 x10(3)/[facility] LABORATORY Specimen Anatomical Collection Method Collection Time Receive d Time (Source) Location / / Volume Laterality Blood specimen 11/29/2019 2:32 PM 020 2:55 (specimen) EDT PM EDT Resulting Agency Comment Spec In Lab Darrell Glasgow MD HEMATOLOGY ORDERABLES Performing Organization Address City/State/[place] [address] (ABNORMAL) Hemogram (11/29/2019 2:32 PM EDT) Analysis Performed At Patho logist Time Signature WBC 14.5 (H) 4.0 - 9.5 [facility] x10(3)/[facility] LABORATORY RBC 4.53 (L) 4.58 - [facility] 5.54 [facility] x10(6)/[facility] LABORATORY Hemoglobin 13.1 (L) 13.7 - [facility] 16.5 gm/dL [facility] Hematocrit 40.8 40.5 - [facility] 48.5 % [facility] MCV 90.1 82.9 - [facility] 93.1 [facility] LABORATORY MCH 28.9 27.5 - [facility] 32.1 pg [facility] MCHC 32.1 32.0 - [facility] 35.7 gm/dL [facility] Platelets 184 145 - 357 [facility] x10(3)/[facility] LABORATORY RDWSD 47.8 (H) 36.0 - [facility] OLIVIA 45.0 [facility] LABORATORY RDWCV 14.5 (H) 11.4 - [facility] OLIVIA 13.8 % [facility]ATORY MPV 11.9 7.6 - 12.9 [facility] nRBC % Auto 0.0 % [facility] nRBC Abs Auto 0.000 0.000 - MELINA OLIVIA 0.000 [facility] x10(3)/[facility] LABORATORY Specimen Anatomical Collection Method Collection Time Receive d Time (Source) Location / / Volume Laterality Blood specimen 11/29/2019 2:32 PM 020 2:55 (specimen) EDT PM EDT Resulting Agency Comment Spec In Lab Darrell Glasgow MD HEMATOLOGY ORDERABLES Performing Organization Address City/State/ZIP Code Phon e Number [address] (ABNORMAL) CK (11/29/2019 2:32 PM EDT) athologist Signature CK, Total 3,282 (H) 0 - 200 [facility] unit/L [facility] Specimen Anatomical Collection Method Collection Time Receive d Time (Source) Location / / Volume Laterality Blood specimen 11/29/2019 2:32 PM 020 2:32 (specimen) EDT PM EDT Resulting Agency Comment Spec In Lab Gretchen Yoon MD CHEMISTRY ORDERABLES Performing Organization Address City/[facility] [place] [address] (ABNORMAL) Troponin (11/29/2019 2:32 PM EDT) athologist Signature Troponin-T 20.33 (H) 0.00 - MELINA OLIVIA 0.00 ng/mL [facility] Comment: The 99th percentile for Troponin T is le ss than 0.01 ng/mL, any detectable cTnT concentration using this assay should be considered elevated. According to the third universal definit ion of myocardial infarction the following criteria with a clinical prese ntation consistent with acute myocardial ischemia meets the diagnosis for a myocardial infarction ([place]). Detection of a rise and/or fall of [...] additional sample may be indicated. Reference: Third [place] Definition of Myocardial Infarction. Journal of the [place] [employer] 2012;60:1581-98 Specimen Anatomical Collection Method Collection Time Receive d Time (Source) Location / / Volume Laterality Blood specimen 11/29/2019 2:32 PM 020 2:32 (specimen) EDT PM EDT Resulting Agency Comment Spec In Lab Gretchen Yoon MD CHEMISTRY ORDERABLES Performing Organization Address [facility] [place] [address] (ABNORMAL) APTT (11/29/2019 2:32 PM EDT) P athologist Signature PTT 114 25 - 37 [facility] (Critical) [facility] LABORATORY Comment: Critical Result called [...] Yoon MD HEMATOLOGY ORDERABLES Performing Organization Address [facility] [place] [address] (ABNORMAL) Prothrombin Time (11/29/2019 2:32 PM EDT) P athologist Signature PT 13.5 (H) 9.4 - 12.5 [facility] LABORATORY INR 1.2 [facility] LABORATORY [...] Organization Address City/State/[place] [address] (ABNORMAL) Hepatic Function Panel (11/29/2019 2:32 PM EDT) P athologist Signature Total Protein 6.3 6.1 - 8.0 [facility] gm/dL [facility] Albumin 3.6 3.2 - 5.2 [facility] gm/dL [facility] AST 257 (H) 0 - 39 [facility]L [facility] ALT 50 0 - 55 [facility]L [facility] Alk Phos 84 40 - 130 [facility]/L [facility] Total 0.3 0.2 - 1.3 [facility] Bilirubin mg/dL [facility] Bili, Direct 0.1 0.0 - 0.3 [facility] OLIVIA mg/dL [facility] Specimen Anatomical Collection Method Collection Time Receive d Time (Source) Location / / Volume Laterality Blood specimen 11/29/2019 2:32 PM 020 2:32 (specimen) EDT PM EDT Resulting Agency Comment Spec In Lab Gretchen Yoon MD CHEMISTRY ORDERABLES Performing Organization Address City/[facility]/[place] [address] (ABNORMAL) pro-Brain Natriuretic Peptide (11/29/2019 2:32 PM EDT) P athologist Signature ProBNP 272 (H) <=125 pg/mL [facility] Specimen Anatomical Collection Method Collection Time Receive d Time (Source) Location / / Volume Laterality Blood specimen 11/29/2019 2:32 PM 020 2:32 (specimen) EDT PM EDT Resulting Agency Comment Spec In Lab Gretchen Yoon MD CHEMISTRY ORDERABLES Performing Organization Address City/[facility]/ZIP Code Phon e Number [place] OLIVIA[address] Magnesium (11/29/2019 2:32 PM EDT) athologist Signature Magnesium 0.76 0.69 - 1.07 [facility] mmol/L [facility] Specimen Anatomical Collection Method Collection Time Receive d Time (Source) Location / / Volume Laterality Blood specimen 11/29/2019 2:32 PM 020 2:32 (specimen) EDT PM EDT Resulting Agency Comment Spec In Lab Gretchen Yoon MD CHEMISTRY ORDERABLES Performing Organization Address City/State/ZIP Code Phon e Number [address] (ABNORMAL) Basic Metabolic Panel (non-fasting) (11/29/2019 2:32 PM EDT) athologist Signature Glucose Lvl 149 65 - 199 [facility] mg/dL [facility] Comment: Diabetes: >=200 mg/dL plus symp toms BUN 16 10 - 20 mg/dL [facility] Creatinine 0.94 0.80 - [...] Anion Gap 15 5 - 15 mmol/L [facility] Calcium 8.0 (L) 8.5 [...] of body mass or the acutely ill. [email or web address]/[facility]LEnkf eGFR 93 >=60 mL/min/1.73 m?? [facility] Comment: The eGFR was calculated using the CKD-EP I equation. As with all creatinine based estimates of kidney function, eGFR values calculated with the CKD-EPI equation are not accurate in patients wi th acute kidney failure, extremes of body mass or the acutely ill. [email or web address]/[facility] HOLD[facility]LEnkf Specimen Anatomical Collection Method Collection Time Receive d Time (Source) Location / / Volume Laterality Blood specimen 11/29/2019 2:32 PM 020 2:32 (specimen) EDT PM EDT Resulting Agency Comment Spec In Lab Gretchen Yoon MD CHEMISTRY ORDERABLES Performing Organization Address City/[facility] [place] [address] EKG 12 Lead (11/29/2019 11:38 AM EDT) [facility] gist Method Time Signature Ventricular rate 60 BPM MUSE SYSTEM Atrial Rate 60 BPM MUSE SYSTEM P-R Interval 140 ms MUSE SYSTEM QRS Duration 86 ms MUSE SYSTEM Q-T Interval 474 ms MUSE SYSTEM QTC Calculated 474 ms MUSE SYSTEM (Bezet) Calculated P [place] 48 degrees MUSE SYSTEM Calculated R [place] 14 degrees MUSE SYSTEM Calculated T [place] 58 degrees MUSE SYSTEM INTERPRETATION Normal sinus [...] Yoon MD ECG ORDERABLES Performing Organization Address City/[facility] Phon e Number MUSE SYSTEM CARDIAC CATHETERIZATION (11/29/2019 11:15 AM EDT) Anatomical Region Laterality Modality Other Specimen (Source) Anatomical Location Collection Method / Collectio n Time Received Time / Laterality Volume Narrative 11/30/2019 1:09 PM EDT ?[facility] ? Cardiac Cathete rization/Intervention Report ? Patient Name: Salinas, Angel Luis H. ? Procedure Date: 11/29/2019 ? A #: [id number] ? Primary Physician: Shaan, Gretchen N ? Case #: [id number] ? File Name: [id number] ? Catheterization Order Number: [id number] ? [facility] ? Final Report [place], [place] ? Patient Name: ? Angel Luis Salinas ? ID#: ?[id number] ? : ?1945 ? Procedure Date: ? [...] require ?modification of this regimen. C marvult [facility] Interventional Cardiology for ?questions. ? Conclusions: ?* [...] be different from the original. [facility] Cardiac Catheterization/Intervention Re port Patient Name: SalinasAngel Luis Procedure Date: 11/29/2019 A #: [id number] Primary Physician: Gretchen Yoon Case #: [id number] File Name: [id number] Catheterization Order Number: [id number] [facility] Final Report [place], [place] Patient Name: Angel Luis Salinas ID#: [id number] : 1945 Procedure Date: November 29, [...] was designated as ASA Class IV. The [facility] clinical frailty scale is 4: [...] the procedure was Emergent. The [facility] indication for the procedure was S GAETANO [...] this intervention was 10%. The final TI NJ flow was 2. Distal 90% Thrombectomy and [...] this intervention was 10%. The final TI NJ flow was 2. Vascular Access: Vascular Access [...] require modification of this regimen. Consult D [facility] Interventional Cardiology for questions. Conclusions: * [...] Signature POC pH 7.33 (L) 7.35 - [facility] 7.45 [facility] POC PCO2 33 (L) 35 - 45 [facility] mmHg [facility] POC PO2 56 (L) 85 - 104 [facility] LABORATORY POC Base Excess -8.0 (L) -3.0 - 3.0 [facility] K mmol/L [facility] POC HCO3 17.4 (L) 20.0 - [facility] 26.0 [facility] mmol/[facility] POC Sodium 137 135 - 145 [facility] mmol/L [facility] POC Potassium 3.6 3.5 - 5.0 [facility] mmol/L [facility] POC Ionized Ca 1.15 1.15 - [facility] 1.33 [facility] P[facility] Hematocrit 37.0 (L) 40.0 - [facility] 51.0 % [facility] POC Calc Hgb 12.6 (L) 13.7 - [facility] 17.5 gm/dL [facility] Comment: The calculation of hemoglobin f rom hematocrit assumes a normal MCHC. POC Bgas Loc CC LAB [facility] Specimen Anatomical Collection Method Collection Time Receive d Time (Source) Location / / Volume Laterality Blood specimen 11/29/2019 9:17 AM 020 7:35 (specimen) EDT AM EDT Gretchen Yoon MD CHEMISTRY ORDERABLES Performing Organization Address City/State/[place] [address] EKG 12 Lead (11/29/2019 9:01 AM EDT) Component Value Ref Range Test Analysis Performed Pathologis t Method Time At Signature Ventricular rate 80 BPM MUSE SYSTEM Atrial Rate 79 BPM MUSE SYSTEM QRS Duration 94 ms MUSE SYSTEM Q-T Interval 436 ms MUSE SYSTEM QTC Calculated 502 ms MUSE SYSTEM (Bezet) Calculated R [place] 54 degrees MUSE SYSTEM Calculated T [place] 80 degrees MUSE SYSTEM INTERPRETATION Normal sinus rhythm MUSE SYSTEM Inferior infarct , possibly acute Prolonged QT * ACUTE [place] ?? Consider right ventricular involvement in acute [...] ONCE, 1 dose, 12/06/19 at 0515, Ad house admin over 120 Minutes magnesium sulfate 2 g [...] NIURKA) 0-8,000 Units, Intravenous, BOLUS PER [facility] PROTOCOL, Starting 12/06/19 at 0926, Until [...] Oral, EVERY 4 HOURS PRN, Startin g [place] 11/30/19 at 2016, Until Sun12/08/19 at 1811, hypokalemia
Administer for serum potassium (mMol/L) of 3.9 - 4 See instructions for Potassium Protocol in online policies.
Routine Or potassium chloride ER (K-Dur/Klor-Con) tablet 40 mEqJump to med 40 mEq, Oral, EVERY 4 HOURS PRN, Startin g [place] 11/30/19 at 2016, Until Sun12/08/19 at 1811, hypokalemia
Administer for serum potassium (mMol/L) of 3.6 - 3.8 See instructions for Potassium Protocol in online policies.
Routine documented in this encounter Care Teams Implementation Manager Relationship Specialty Start Date End Date France Lam MD PCP - General 05/02/13 02/04/20 [address] [place] [address] documented as of this encounter
[2022-04-13 10:58] VITALS: BP 108/56; PULSE 51
--- OUTSIDE RECORDS SUMMARY | 2022-04-13 11:00 | XMS_ITS | Encounter Summary ---
:1945 Author Organization [facility] Address [address] [place] [address] Care Team Providers Name Role Phone Jennifer Gomez HOME AND FAMILY LIVING PROFESSOR Primary Care Provider Encounter Details Date Type Department Care Team Description 01/25/2022 Lab Requisition [facility] Outr Resulting Lab, Pathology & Laboratory Provider [facility] [address], [place] [address] Social History Tobacco Use Types Packs/Day Years [...] Negative [facility] LABORATORY SERVICES Shigella/Enteroinvasive Negative Negative [facility] LAB[facility]ORY SERVICES HN LAB CAMPYLOBACTER PCR Negative Negative [facility] ER LABORATORY SERVICES Shiga Toxin PCR Negative Negative [facility] LABORATORY SERVICES Specimen Feces - Specimen from rectum (specimen) Performing Organization Address City/State/ZIP Code Phon e Number [facility] LABORATORY [address] [place] [address] SERVICES documented in this encounter Visit Diagnoses Not on filedocumented in this encounter Care Teams Coremaking Machine Operator Relationship Specialty Start Date End Date Jennifer Gomez, HOME AND FAMILY LIVING PROFESSOR PCP - General 05/10/15 [facility] [address] [place], [place] [id number] documented as of this encounter
--- OUTSIDE RECORDS SUMMARY | 2022-04-13 11:00 | XMS_ITS | Encounter Summary ---
:1945 Author Organization [facility] [place] [address] Care Team Providers Name Role Phone Jovany Lott MD Primary Care Provider Encounter Details Date Type Department Care Team Description 10/05/2020 Notes Only Cardiology Merlin Sanchez [place] [facility] [address] CARDIOLOGY DEPT. [phone] [place], [place] [address] (Wo rk) Social History Tobacco [...] BEKAH-C with WM FLX Merlin Sanchez MD [facility] Pager [phone] documented in this encounter Plan of Treatment Not on filedocumented as of this encounter Visit Diagnoses Not on filedocumented in this encounter Care Teams Publication Distributor Relationship Specialty Start Date End Date Jovany Lott MD PCP - General Family Medicine 8/6/20 [address] [place] [address] documented as of this encounter
--- OUTSIDE RECORDS SUMMARY | 2022-04-13 11:00 | XMS_ITS | Encounter Summary ---
:1945 Author Organization [facility] Address [address] [place] [address] Care Team Providers Name Role Phone Jennifer Gomez ASSIGNMENT DESK EDITOR Primary Care Provider Encounter Details Date Type Department Care Team Description 02/07/2020 Lab Requisition [facility] Outr Resulting Lab, Pathology & Laboratory Provider [facility] [address] [place] [address] Social History Tobacco Use Types [...] (02/07/2020 7:59 EDT) COVID-19 rt-PCR NEGATIVE Negative [facility] Result Comment: LABORATORY 2019-novel Coronavirus [...] Organization Address City/State/ZIP Code Phon e Number [facility] [place] [facility] [place], [place] COVID-19 TESTING (02/07/2020 7:59 EDT) COVID-19 rt-PCR NEGATIVE Negative [facility] Result Comment: LABORATORY 2019-novel Coronavirus [...] Administration's Emergency Use Authorization. Performing Lab [facility] LABORATORY SERVICES Specimen Swab Performing Organization Address City/State/ZIP Code Phon e Number [facility] [address] [place] [address] SERVICES [facility] [place], [place] documented in this encounter Visit Diagnoses Not on filedocumented in this encounter Care Teams Service Restorer Emergency Relationship Specialty Start Date End Date Jennifer Gomez NP PCP - General 05/10/15 [facility] [address] [place], [place] [address] documented as of this encounter
--- OUTSIDE RECORDS SUMMARY | 2022-04-13 11:00 | XMS_ITS | Encounter Summary ---
:1945 [place] [address] Care Team Providers Name Role Phone France Lam MD Primary Care Provider Encounter Details Date Type Department Care Team Description 12/29/2019 Ancillary Procedure Radiology Library at Ivette Salas [facility] [place] [address] [place] [address] [phone] (Wo rk) Social History Tobacco Use Types [...] is for storage only. Alfreda Salas APRN [facility] FILM LIBRARY ORDERABLES Performing Organization Address City/State/ZIP Code Phon e Number [place], [place] documented in this encounter Visit Diagnoses Not on filedocumented in this encounter Care Teams Can Reforming Machine Operator Relationship Specialty Start Date End Date France Lam MD PCP - General 05/02/13 02/04/20 [address] [place] [address] documented as of this encounter
--- OUTSIDE RECORDS SUMMARY | 2022-04-13 11:00 | XMS_ITS | Encounter Summary ---
:1945 Author Organization [facility] [place] [address] Care Team Providers Name Role Phone Jovany Lott MD Primary Care Provider Reason for Visit Reason Onset Date Comments Follow-up 06/15/2020 Tobacco Treatment Encounter Details Date Type Department Care Team Description 06/15/2020 Telephone Vascular Surgery at Ryan Tran-melvin (Tobacco [facility] Sukumar, RN Treatment) [place] [address] Social History Tobacco Use Types Packs/Day [...] updated. Ryan Tran, MSN, RN-BC, NCTTP Tobacco Rn [facility] Pager #[phone] documented in this encounter Plan of Treatment Not on filedocumented as of this encounter Visit Diagnoses Not on filedocumented in this encounter Care Teams Dry Pan Operator Relationship Specialty Start Date End Date Jovany Lott MD PCP - General Family Medicine 02/05/20 [place] [address] documented as of this encounter
--- OUTSIDE RECORDS SUMMARY | 2022-04-13 11:00 | XMS_ITS | Encounter Summary ---
:1945 Author Organization [facility] Address [facility] [address] [place] [address] Care Team Providers Name Role Phone France Lam MD Primary Care Provider Reason for Visit Reason Onset Date Comments TeleHealth 01/08/2020 Appt 01/09/20 Encounter Details Date Type Department Care Team Description 01/08/2020 Telephone Neurology at [facility] Efrain Nicole PA TeleHealth (Appt [facility] [address] [place] [address] NEUROLOGY [phone] [place], [place] [address] (Wo rk) Social History Tobacco [...] on filedocumented in this encounter Care Teams Accounting Advisory Services Manager Relationship Specialty Start Date End Date France Lam MD PCP - General 05/02/13 02/04/20 [address] [place] [address] documented as of this encounter
--- OUTSIDE RECORDS SUMMARY | 2022-04-13 11:00 | XMS_ITS | Encounter Summary ---
:1945 Author Organization [facility] Address [address] [place] [address] Care Team Providers Name Role Phone Jennifer Gomez HOME CARE ASSOCIATE Primary Care Provider Encounter Details Date Type Department Care Team Description 08/26/2021 Lab Requisition [facility] Najma Valladares for other Pathology & M, DO general examination Laboratory Medicine - [address] [facility] [address] [place] [phone] Social History Tobacco Use Types Packs/Day Years [...] 8:45 EST) Note to Patient The following [facility] MEDICAL pathology results have CENTER been interpreted by your LABORATORY pathologist and may be SERVICES available to you before your health provider has had the opportunity to review them. Please allow time for your provider to receive these results and explore management options, if applicable. Final Diagnosis A. RECTUM, POLYP, BIOPSY : [facility] MEDICAL - Polypoid submucosal anal glands. CENTER - Overlying rectal mucosa negative for dysplasia. LABORATORY - See comment. SERVICES Diagnosis Comment This rectal polyp shows a cantor bmucosal collection of anal duct glands causing a polypoid configuration. The morphology and the immunohistochemical profile are consistent with a benign (non-neoplastic) pro [facility] MEDICAL cess. Seat Trimmer slides of this case were reviewed at the gastrointestinal/liver intradepartmental consultation conference. CENTER LABORATORY ANTIBODY(CLONE)(BLOCK):RESULT SERVICES CK7 (RN7, [employer]) (A1): Strongly positive PAX-8 (MRQ-50, [employer]) (A1): Negative NKX3.1 (Rabbit Polyclonal, [employer]) (A1): Negative GATA3 (L50-823, [employer]) (A1): Negative NOTE: One or more of [...] characteristics have been de termined by [facility] and/or by the referring laboratory. [...] NICHOLS(ASCP) 08/26/2021 16:41 SE RVICES Performing Lab [facility] LAB [facility] LABORATORY SERVICES Scanned Images [facility] LABORATORY SERVICES Specimen Tissue - Specimen from rectum (specimen) Performing Organization Address City/State/ZIP Code Phon e Number [facility] [address] [place] [address] SERVICES documented in this encounter Visit Diagnoses Diagnosis Encounter for other general examination documented in this encounter Care Teams Clothes Separator Relationship Specialty Start Date End Date Jennifer Gomez NP PCP - General 05/10/15 [facility] [address] [place] [id number] documented as of this encounter
--- OUTSIDE RECORDS SUMMARY | 2022-04-13 11:00 | XMS_ITS | Encounter Summary ---
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 S/P DESx3 in the [id number] RCA. Aspiration thrombectomy performed, and integrellin bolus [...] with ICH, bilateral PE; paroxysmal atrial fibrillation [[id number]: 5]; PAD; HLD; HTN; smoking and PFO, who presents for post-discharge cardiovascular follow-up. CV issues are currently stable. Plan 1. CAD - CCS Class 0. Recovering well. He has completed 1 month of triple therapy. He may stop his aspirin, and resume clopidogrel and apixaban. Starting cardiac rehab. He wishes to pursue PCSK9 referral via the [place] system. 2. Afib - CHADS2-vasc 5, presently [...] 6 months Faustino Garduno MD Time spent: [id number] 0-5min [id number] 6-10min [id number] 11-15min [id number] 16-20min XXXX [id number] 21-30min [id number] 31-40min [id number] 40+ min documented in this encounter Plan [...] type documented in this encounter Care Teams Director Recreation Center Relationship Specialty Start Date End Date France Lam MD PCP - General 05/02/13 02/04/20 [address] [place] [address] documented as of this encounter
--- OUTSIDE RECORDS SUMMARY | 2022-04-13 11:00 | XMS_ITS | Encounter Summary ---
:1945 Author Organization [facility] Address [address] [place] [address] Care Team Providers Name Role Phone Jennifer Gomez COMMERCIAL LENDER Primary Care Provider Encounter Details Date Type Department Care Team Description 03/19/2019 Results Only [facility] Angel Luis Lott MD [phone] [address] [place], [place] [id number] (Wo rk) Social History Tobacco Use Types [...] (03/19/2019 16:47 EDT) Pathology SURGICAL PATHOLOGY REPORT [facility] MEDICAL Report: Reports generated via electronic interface conta in original data; CENTER LABORATORY however they are lacking the format of the original re port. SERVICES Caution should be taken when reading/interpreting unfo rmatted reports. Name: ? ANGEL LUIS HI ? Accession #: ? [id number] ? : ? 1945 (Age: 8 3) [...] Organization Address City/State/ZIP Code Phon e Number [facility]ATORY [address] [place] [address] SERVICES documented in this encounter Visit Diagnoses Not on filedocumented in this encounter Care Teams Delicatessen Slicer Relationship Specialty Start Date End Date Jennifer Gomez NP PCP - General 05/10/15 [facility] [address] [place], [place] [phone] documented as of this encounter
--- OUTSIDE RECORDS SUMMARY | 2022-04-13 11:00 | XMS_ITS | Encounter Summary ---
:1945 Author Organization [facility] Address [address] [place] [address] Care Team Providers Name Role Phone Unavailable Primary Care Provider Unavailable Encounter Details Date Type Department Care Team Description 09/02/2003 Results Only [facility] Patel MD conversion [address] [facility] [address] [place] [address] [place] [address] (Wo rk) Social History Tobacco Use Types [...] ANGEL LUIS SALINAS ? Accession #: ? [id number] ? : ? 1945 (Age: 58) ??M [...] of the lesion is recommended. ?? (Dr. Mascorro)/[facility] Microscopic Description: ? The epidermis is hype [...] and cords of similar melanocytes that show locomotive operator helper maturation with descent. ??There is papillary dermal fibroplasia. ??(Dr. Mascorro)/[facility] Document reviewed and electronically signed by: Mai [...] and entirely submitted in one cassette. ??(Dr Stepahny Amador)/[facility] End of Report Specimen Performing Organization Address City/State/ZIP Code Phon e Number [facility] LAB[facility]ATORY [address] [place] [address] SERVICES [facility] [address] [place] [address] documented in this encounter Visit Diagnoses Not on filedocumented in this encounter
--- OUTSIDE RECORDS SUMMARY | 2022-04-13 11:00 | XMS_ITS | Clinical Summary ---
:1945 Author Organization [facility] Address [address] [place] [address] Care Team Providers Name Role Phone Jennifer Gomez Bunny REC THERAPIST Primary Care Provider Encounters Date Type Specialty [...] Free 9.3 (H) 2.8 - 5.3 pg/mL [facility] SERVICES Specimen Blood - Venous blood (substance) Performing Organization Address City/State/ZIP Code Phon e Number [facility] [address] [place] [address] SERVICES FECAL BACTERIAL PATHOGENS BY PCR (01/24/2022 14:50 EDT) Pathologist Sig nature Salmonella PCR Negative Negative [facility] SERVICES Shigella/Enteroinvasive Negative Negative [facility] R E. coli LABORATORY SERVICES HN LAB CAMPYLOBACTER PCR Negative Negative [facility] ER LABORATORY SERVICES Shiga Toxin PCR Negative Negative [facility] SERVICES Specimen Feces - Specimen from rectum (specimen) Performing Organization Address City/State/ZIP Code Phon e Number [facility] [address] [place] [address] SERVICES from Last 3 Months Insurance Payer Benefit Plan Subscriber ID Effective Phone Address Typ e / Group Dates [employer] OF [employer] OF [id number] 2018-Prese [id number] [employer] [place] [address] MEDICARE MEDICARE A/B [id number] 2011-Pres [address] Medicare GL ent [id number] [place] [address] (Work) Jovany Hi Personal/Family Self [address] (Home) [place] [address] (Work) Care Teams Complaint Adjuster Relationship Specialty Start Date End Date Jennifer Gomez, REC THERAPIST PCP - General 05/10/15 [facility] [address] [place], [place] [id number]
--- OUTSIDE RECORDS SUMMARY | 2022-04-13 11:00 | XMS_ITS | Encounter Summary ---
:1945 Author Organization [facility] [place] [address] Care Team Providers Name Role Phone France Lam MD Primary Care Provider Encounter Details Date Type Department Care Team Description 12/23/2019 TH Visit Neurosurgery at [facility] Alfreda Salas Intracranial (TeleHealth) [facility] C, T[place] [address] Center [phone] [place] [address] Social History Tobacco Use Types Packs/Day Years Used Date Current Every Day Smoker Cigars 0.5 Sex Assigned at Date Recorded Not on file documented as of this encounter Progress Notes Alfreda Salas C, TITLE I PARAPROFESSIONAL - 12/23/2019 1:30 PM EDT Images from [...] week follow up head CT at [facility], showing slight decrease in size and [...] weeks which may be done at [facility] with follow up TOV [facility]. Head CT 12/18/19 Assessment and Plan [...] hemorrhage documented in this encounter Care Teams Engraver Machine Relationship Specialty Start Date End Date France Lam MD PCP - General 05/02/13 02/04/20 [address] [place] [address] documented as of this encounter
--- OUTSIDE RECORDS SUMMARY | 2022-04-13 11:00 | XMS_ITS | Encounter Summary ---
:1945 Author Organization [facility] [place] [address] Care Team Providers Name Role Phone France Lam MD Primary Care Provider Reason for Visit Reason Onset Date Comments TeleHealth 01/12/2020 Encounter Details Date Type Department Care Team Description 01/12/2020 Telephone Neurosurgery at [facility] Alfreda Salas, TeleHealth [facility] [address] [address] [facility] [phone] [place], [place] [address] (Wo rk) Social History Tobacco [...] on filedocumented in this encounter Care Teams School Director Relationship Specialty Start Date End Date France Lam MD PCP - General 05/02/13 02/04/20 [address] [place] [address] documented as of this encounter
--- OUTSIDE RECORDS SUMMARY | 2022-04-13 11:00 | XMS_ITS | Encounter Summary ---
:1945 Author Organization [facility] [place] [address] Care Team Providers Name Role Phone France Lam MD Primary Care Provider Encounter Details Date Type Department Care Team Description 01/16/2020 Telephone Vascular Surgery at [facility] Ryan Tran, [place] [address] Social History Tobacco Use Types Packs/Day [...] fidelina. Ryan Tran, MSN, RN-BC, NCTTP Tobacco Claims Representative [facility] Pager #[phone] documented in this encounter Plan of Treatment Not on filedocumented as of this encounter Visit Diagnoses Not on filedocumented in this encounter Care Teams Property Handler Relationship Specialty Start Date End Date France Lam MD PCP - General 05/02/13 02/04/20 [address] [facility] [place] [address] documented as of this encounter
--- OUTSIDE RECORDS SUMMARY | 2022-04-13 11:00 | XMS_ITS | Encounter Summary ---
:1945 Author Organization [facility] Address One [facility] [place] [address] Care Team Providers Name Role Phone Jovany Lott MD Primary Care Provider Encounter Details Date Type Department Care Team Description 03/10/2022 Ancillary Procedure Radiology Library at Jovany Lott MD [facility] [address] [facility] [id number] [place] [address] [phone] Social History Tobacco Use Types Packs/Day Years [...] Organization Address City/State/ZIP Code Phon e Number [place], [place] documented in this encounter Visit Diagnoses Not on filedocumented in this encounter Care Teams Security Public Safety Officer Relationship Specialty Start Date End Date Jovany Lott MD PCP - General Family Medicine 02/05/20 [address] [place] [address] documented as of this encounter
--- OUTSIDE RECORDS SUMMARY | 2022-04-13 11:00 | XMS_ITS | Encounter Summary ---
:1945 Author Organization [facility] Address [address] [place] [address] Care Team Providers Name Role Phone Jennifer Gomez TRANSIT OPERATOR Primary Care Provider Encounter Details Date Type Department Care Team Description 03/19/2019 Hospital Encounter [facility] [place] Unknown, Provider, [facility] 0 [facility] [phone] [place] [address] (Work) [phone] Social History Tobacco Use Types Packs/Day Years Used Date Never Assessed Sex Assigned at Date Recorded Not on file documented as of this encounter Discharge Disposition Disposition Code Departure Means Destination Home or Self Skilled Nursing documented in this encounter Plan of Treatment Not on filedocumented as of this encounter Visit Diagnoses Not on filedocumented in this encounter Care Teams Hot Plate Press Operator Relationship Specialty Start Date End Date Jennifer Gomez, TRANSIT OPERATOR PCP - General 05/10/15 [facility] [address] [place], [place] [id number] documented as of this encounter
--- OUTSIDE RECORDS SUMMARY | 2022-04-13 11:00 | XMS_ITS | Encounter Summary ---
:1945 Author Organization [facility] [place] [address] Care Team Providers Name Role Phone Jovany Lott MD Primary Care Provider Encounter Details Date Type Department Care Team Description 11/10/2020 Telephone [place] [facility] [place] [address] Social History Tobacco Use Types Packs/Day [...] on filedocumented in this encounter Care Teams Parking Officer Relationship Specialty Start Date End Date Jovany Lott MD PCP - General Family Medicine 02/05/20 [place] [id number] documented as of this encounter
--- OUTSIDE RECORDS SUMMARY | 2022-04-13 11:00 | XMS_ITS | Encounter Summary ---
:1945 Author Organization [facility] Address [address] [place] [address] Care Team Providers Name Role Phone Unavailable Primary Care Provider Unavailable Encounter Details Date Type Department Care Team Description 09/15/[address] [facility] - Otis Patel MD conversion [address] [facility] [address] [place] [address] [place] [address] (Wo rk) Social History Tobacco Use Types [...] ANGEL LUIS SALINAS ? Accession #: ? [id number] ? : ? 1945 (Age: 58) ??M ? Collect Date: ? 09/15/2003 ? Location: ? [facility] ? Receive Date: ? 004 ? Provider: OTIS MOSS MD Copy to: MALCOM MCGEE BRUSH HEAD MAKER ? Final Pathologic Diagnosis: ? Skin of [...] City/State/ZIP Code Phon e Number [facility] [address] [place] [address] [facility] [address] [place] [address] documented in this encounter Visit Diagnoses Not on filedocumented in this encounter
--- OUTSIDE RECORDS SUMMARY | 2022-04-13 11:00 | XMS_ITS | Encounter Summary ---
:1945 Author Organization [facility] Address [facility] [address] [address] Care Team Providers Name Role Phone France Lam MD Primary Care Provider Encounter Details Date Type Department Care Team Description 12/22/2019 Telephone Cardiology Riki Stevens, [facility] [place] [address] [facility] [phone] [facility] [place] [phone] (Wo rk) Social History Tobacco Use Types [...] on filedocumented in this encounter Care Teams Machine Feeder Relationship Specialty Start Date End Date France Lam MD PCP - General 05/02/13 02/04/20 [address] [place] [address] documented as of this encounter
--- OUTSIDE RECORDS SUMMARY | 2022-04-13 11:00 | XMS_ITS | Encounter Summary ---
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 [phone] [place] [address] Social History Tobacco Use Types Packs/Day Years [...] best is to differ this conversation until nursing home OAC strategy has been set. Specifically, if this is being treated as a provoked dvt/pe, then would re-evaluate to coordinated with OAC discontinuation. I discussed the above findings with the patient and his both of whom appear to understand and is in agreement with the plan going forward. Merlin Sanchez M.D., F.A.C.C. programmer engineering and scientific Pager 2020 >50% of the 15 minute [...] failure documented in this encounter Care Teams Flange Turner Relationship Specialty Start Date End Date France Lam MD PCP - General 05/02/13 02/04/20 [address] [place] [address] documented as of this encounter
--- OUTSIDE RECORDS SUMMARY | 2022-04-13 11:01 | XMS_ITS | Encounter Summary ---
:1945 Author Organization [facility] [place] [address] Care Team Providers Name Role Phone France Lam MD Primary Care Provider Reason for Visit Reason Onset Date Comments TeleHealth 12/22/2019 Appt 12/23/19 Encounter Details Date Type Department Care Team Description 12/22/2019 Telephone Neurosurgery at [facility] Alfreda Salas TeleHealth (Appt [facility] Devin Sebastian, GUTTER HANGER 12/23/19) [place] [address] [place] [address] [place] [address] Social History Tobacco Use Types Packs/Day [...] on filedocumented in this encounter Care Teams Nutrition Intern Relationship Specialty Start Date End Date France Lam MD PCP - General 05/02/13 02/04/20 [address] [place] [address] documented as of this encounter
--- OUTSIDE RECORDS SUMMARY | 2022-04-13 11:01 | XMS_ITS | Encounter Summary ---
:1945 Author Organization [facility] [place] [address] Care Team Providers Name Role Phone France Lam MD Primary Care Provider Encounter Details Date Type Department Care Team Description 12/08/2019 Telephone Neurosurgery at [facility] [place] [address] Social History Tobacco Use Types Packs/Day Years Used Date Current Every Day Smoker Cigars 0.5 Sex Assigned at Date Recorded Not on file documented as of this encounter Miscellaneous Notes Telephone Encounter - Elza Bradshaw - 12/22/2019 6:[address] in [facility] Telephone Encounter - Elza Bradshaw - 12/18/2019 3:43 PM EDT Left message at [facility] requesting they call back to advise if patient has been scheduled for CT. Telephone Encounter - Sarah Boucher - 12/08/2019 3:[address] order to [facility] to schedule, 12/16-12/18 for 12/22 TOV scheduled w/[facility] Telephone Encounter - Sarah Boucher - 12/08/2019 9:50 AM EDT RN, please put in CT order external=[place] Pt's called not able to come to [facility] on 12/[address] to have CT locally at [facility] call w/results. documented in this encounter Plan of Treatment Not on filedocumented as of this encounter Visit Diagnoses Not on filedocumented in this encounter Care Teams Manager Science Relationship Specialty Start Date End Date France Lam MD PCP - General 05/02/13 02/04/20 [address] [place] [address] documented as of this encounter
--- OUTSIDE RECORDS SUMMARY | 2022-04-13 11:01 | XMS_ITS | Encounter Summary ---
:1945 Author Organization [facility] Address [address] [facility] [place] [place] [address] Care Team Providers Name Role Phone France Lam MD Primary Care Provider Encounter Details Date Type Department Care Team Description 12/18/2019 Ancillary Procedure Radiology Library at Debi Lam [facility] [address] [place] [id number] [place] [address] [phone] Social History Tobacco Use Types Packs/Day Years [...] for storage only. France Lam MD [facility] FILM LIBRARY ORDERABLES Performing Organization Address City/State/ZIP Code Phon e Number [place], [place] documented in this encounter Visit Diagnoses Not on filedocumented in this encounter Care Teams Otolaryngologist Relationship Specialty Start Date End Date France Lam MD PCP - General 05/02/13 02/04/20 [address] [place] [address] documented as of this encounter
--- OUTSIDE RECORDS SUMMARY | 2022-04-13 11:02 | XMS_ITS | Encounter Summary ---
:1945 Author Organization [facility] [place] [address] Care Team Providers Name Role Phone France Lam MD Primary Care Provider Reason for Referral Consultation (Routine) - Specialty Diagnoses / Procedures Referred By Contact Refer red To Contact Cardiology Diagnoses Acute ST elevation myocardial infarction (STEMI) of inferior wall Darrell Glasgow MD [facility] [place] [address] Referral ID Status Reason Start Date Expiration Date Visits V isits Requested Authorized [id number] Consult, 12/08/2019 06/05/2020 1 1 Test & Treat Consultation (Routine) - Closed Specialty Diagnoses / Referred By Contact Referred To Contact Procedures Cardiac Rehabilitation Diagnoses ST elevation myocardial infarction involving right coronary artery Grethcen Yoon, Cardiac Rehab, [address] [place] [id number] Fax: Referral ID Status Reason Start Date Expiration Date Visits V isits Requested Authorized [id number] Closed Consult, 12/08/2019 06/05/2020 36 36 Test & Treat Reason for Visit Auth/Cert Specialty Diagnoses / Procedures Referred By Contact Refer red To Contact Diagnoses STEMI (ST elevation myocardial infarction) STEMI Procedures CARDIAC CATHETERIZATION Referral ID Status Reason Start Date Expiration Date Visits Requ ested Visits Authorized [id number] 1 1 Encounter Details Date Type Department Care Team Description 11/29/2019 - Hospital Encounter Cardiac Special YoungBarbra MD [facility] [place] [address] ST elevation myocardial infarction invol ving left main coronary artery; 12/08/2019 Care Unit [place] Lozano MD [facility] [place] [address] ST elevation myocardial infarction invol ving right coronary artery; [facility] Edema of upper extremity; Hospital Intracranial hemorrhage; [facility] Paroxysma l atrial fibrillation; Drive Acute pulmonary embolism, un specified pulmonary embolism type, unspecified whether acute cor pulmonale present; [place], [place] Acute ST elevat ion myocardial infarction (STEMI) of inferior wall [id number] Social History Tobacco Use Types Packs/Day Years [...] Luis Salinas Patient Age: 74 y.o. Language: Georgian Race: White Ethnicity: Not nor Admit date: [...] months on: antiplatelet therapy at discretion of steel roller - Repeat TTE in 3 months to reassess LV function - Repeat BMP in 1-2 weeks given recent start lisinopril - Referred to lipid clinic for consideration of PCSK-9 inhibitor given STEMI with intolerance of statins - Started on amiodarone this admission for recurrent rapid atrial flutter with rates ~170, recommendcontinued assessment of necessity of rhythm control strategy with steel roller - Amiodarone monitoring recommendations as below - [...] contact your inpatient physician through the [facility] Billing Representative . Issues after hours and on weekends [...] Compazine. He was transferred directly to [facility] via [facility] for further management. Patient had an emergent PCI with 3 MACARIO stents placed to his RCA, with mild disease of LCX (report pending) at [facility]. He was found to be persistently hypotensive requiring Levo up to 10mcg/min. He was transferred to [facility] after the cath procedure. Bedside RHC showed CI 2.12, PAWP 11, PAP 38/15 indicating hypovolemic state. He received 1L bolus of NS with improvement of his blood pressure to 124/61. History of PAD, HLD - had side reactions to statins - so taking niacin and red rye grain. Chronic active smoker with more than 65 pack years. Family history of [place] in father and two uncles. He's takingbaby [...] as described above. On arrival at [facility] he was taken for cardiac [...] Electronically signed by: Estefani Harris [facility] ([phone]), at 11/29/2019 4:[address] Head wo Contrast (Generic) (Exam End: 11/30/2019 10:41 AM) Impression Focal hemorrhage with small amount of adjacent edema projecting in the region of the left optic tract. Thank you for letting us participate in the care of this patient. For questions regarding this report, please contact the number below. Electronically signed by: [facility] ([phone]), at 11/30/2019 12:[address] Head wo Contrast (Generic) (Exam End: 11/30/2019 4:36 PM) Impression Head CT: Stable hemorrhage in the region of the left optic tract. CTA: Negative exam. No abnormal vasculature in the area of hemorrhage. Thank you for letting us participate in the care of this patient. For questions regarding this report, please contact the number below. Electronically signed by: Anegl Luis [facility] ([phone]), at 11/30/2019 5:[address] Angiogram [place] (Exam End: 11/30/2019 4:36 PM) Impression Head CT: Stable hemorrhage in the region of the left optic tract. CTA: Negative exam. No abnormal vasculature in the area of hemorrhage. Thank you for letting us participate in the care of this patient. For questions regarding this report, please contact the number below. Electronically signed by: Angel Luis Barboza MD, [facility] ([phone]), at 11/30/2019 5:04 PM MRI Brain wo [...] by: Angel Luis Barboza MD, [facility] ([phone]), at 12/01/2019 8:02 PM XR Chest One [...] Electronically signed by: Merari Collins [facility] ([phone]), at 12/01/2019 3:53 PM XR Chest One [...] Electronically signed by: Roselyn Luciano [facility] ([phone]), at 12/04/2019 6:16 PM MRI Brain wwo Contrast (Generic) (Exam End: 12/05/2019 7:59 PM) Impression No significant interval change. Thank you for letting us participate in the care of this patient. For questions regarding this report, please contact the number below. Electronically signed by: Merari Collins [facility] ([phone]), at 12/05/2019 10:[address] Head wo [...] Electronically signed by: Merari Collins [facility] ([phone]), at 12/06/2019 10:06 PM Pending Studies and Lab Data: N/A Discharge Conditions/Prognosis: stable Discharge to: home Updated Allergies/ADRs: Allergies Allergen Reactions ??? Penicillins Pt doesn't remember reaction ??? Hogiizh-Skz-Pzb Reductase Inhibitors Stiff neck, upset stomach, back [...] at another hospital and then at [facility] you had a stent placed [...] FOR ONE MONTH AND THEN STOP. Your steel roller may tell you to start this medication again after one year. Clopidogrel (Plavix) 75 mg daily - This medication will help prevent clots from forming in your blood, which will help protect the stent that was placed in your heart vessel. TAKE THIS FOR ONE YEAR ANDTHEN DISCUSS WITH YOUR INSIGHTS ANALYST WHETHER TO STOP. Amiodarone 400mg twice daily [...] follow up: Your primary care provider and steel roller will manage your blood thinner (apixaban). You do not need lab monitoring of this medication. Diet: Please consume a healthy diet low in cholesterol Follow up Appointments: 12/10/2019 at 3:10PM with PCP Angel Luis Lott Future Appointments Date Time Provider Department Center 12/23/2019 1:30 PM Alfreda Salas APRN [address] 12/26/2019 9:40 AM Merlin Sanchez MD [facility] CARD 4A [facility] 12/30/2019 3:40 PM Gretchen Yoon MD [facility] 4A [facility] Future Appointments and Orders Future Appointments and Orders Future Appointments Provider Department Dept Phone 12/23/2019 1:30 PM Alfreda Salas APRN Neurosurgery at [facility] Arrive at: Home [phone] Please do not come in for this visit. Your provider will call you at the number you provided. 12/26/2019 9:40 AM Merlin Sanchez MD Cardiology at [facility] Arrive at: Home [phone] Please do not come in for this visit. Your provider will call you at the number you provided. 12/30/2019 3:40 PM Gretchen Yoon MD Cardiology at [facility] Arrive at: Home [phone] Please do not come in for this visit. Your provider will call you at the number you provided. Future Orders Complete By Expires Referral to Cardiac Rehab [[id number] Custom] As directed Process Instructions: If no progress note charted, please enter Clinical details in comments. Scheduling Instructions: Questions: My question or request is: STEMI. [facility] re[facility] at [facility] Referral to [facility] [REF43 Custom] As directed Process Instructions: If no progress note charted, please enter Clinical details in comments. Scheduling Instructions: Questions: My question or request is: patient with inferior stemi with history of statin allergy (rash) - please evaluate for psck9 inhibitor. Referral to Home Health - at DISCHARGE [DDT3555 CPT(R)] As directed Process Instructions: Scheduling Instructions: Comments: DOCUMENTATION FOR [facility]NA SERVICES PATIENT'S LOCATION: [address] [phone] (home) Sole Leather Cutting Machine Operator's Name: Self In discussion with the attending physician, it is certified that this patient is under his/her care and that MD, or an MOTORCYCLE DELIVERER, HEAD GRINDER, or PA who is working directly with him/her, had a bagr-no-msky encounter that meets the physician hxkm-re-bfmx encounter requirements with this patient on 12/07/2019. [...] – [facility], PHONE: [phone] FAX: [phone] Start of care: 24-48 hours after hospital [...] MD [address] / [place] [address] All A agencies which cover the area [...] info: PCP Your PCP: France Lam MD [phone] For questions regarding this document or issues relating to this hospitalization on the Cardiology Service, please contact your inpatient physician through the [facility] Billing Representative . Issues after hours and on weekends will be handled by the Warehouse Foreman on-call. Patient Instructions: Neurology Your Diagnosis: Left [...] in the neurology clinic at [facility]. See below for the appointment time. [...] PM Alfreda Salas APRN Neurosurgery at [facility] Arrive at: Home [phone] Please do not come in for this visit. Your provider will call you at the number you provided. 12/26/2019 9:40 AM Merlin Sanchez MD Cardiology at [facility] Arrive at: Home [phone] Please do not come in for this visit. Your provider will call you at the number you provided. 12/30/2019 3:40 PM Gretchen Yoon MD Cardiology at [facility] Arrive at: Home [phone] Please do not come in for this visit. Your provider will call you at the number you provided. Future Orders Complete By Expires Referral to Cardiac Rehab [[id number] Custom] As directed Process Instructions: If no progress note charted, please enter Clinical details in comments. Scheduling Instructions: Questions: My question or request is: STEMI. Cardiac re[facility] at [facility] Referral to [facility] [REF43 Custom] As directed Process Instructions: If no progress note charted, please enter Clinical details in comments. Scheduling Instructions: Questions: My question or request is: patient with inferior stemi with history of statin allergy (rash) - please evaluate for psck9 inhibitor. Referral to Home Health - at DISCHARGE [ILL3206 CPT(R)] As directed Process Instructions: Scheduling Instructions: Comments: DOCUMENTATION FOR VNA SERVICES PATIENT'S LOCATION: [address] [phone] (home) Sole Leather Cutting Machine Operator's Name: Self In discussion with the attending physician, it is certified that this patient is under his/her care and that MD, or an MOTORCYCLE DELIVERER, HEAD GRINDER, or PA who is working directly with him/her, had a rejl-wu-bnkh encounter that meets the physician dppa-tq-jgnr encounter requirements with this patient on 12/07/2019. [...] – [facility], PHONE: [phone] FAX: [phone] Start of care: 24-48 hours after hospital [...] France Lam MD [address] / [facility] [address] All A agencies which cover the area [...] contact info: PCP Discharge References/Attachments Atrial Fibrillation (Georgian) Cardiac Rehabilitation (Georgian) Heart Failure (Georgian) Heart Failure: Limiting Sodium (Georgian) Hemorrhagic Stroke: General Info (Georgian) Smoking: Stopping (Georgian) Stroke Rehabilitation: General Info (Georgian) Pulmonary Embolism (Georgian) Riki Stevens MD PGY-3, Internal Medicine Cardiology S2, #0338 Associated attestation - Paris Dodd MD - 12/09/2019 4:44 PM EDT Cardiology Attending Discharge Addendum I was the assigned attending steel roller for this clinical encounter. For the purposes [...] complications include novel onset, paroxysmal atrial fibrillation [LVP2ED2YULO: 5] & L-sided diplopia with potential hemineglect [...] My contact information: Paris Matt MD MPH [place] [phone] (office); Pager #[phone] Email: [email or web address] documented in this encounter Discharge Instructions Patient InstructionsFiRiki de jesus MD - 12/02/2019 9:56 AM EDT Images from the original note were not included. Why you were hospitalized: You had a heart attack. You received clot-busting medications at another hospital and then at [facility] you had a stent placed [...] FOR ONE MONTH AND THEN STOP. Your steel roller may tell you to start this medication again after one year. Clopidogrel (Plavix) 75 mg daily - This medication will help prevent clots from forming in your blood, which will help protect the stent that was placed in your heart vessel. TAKE THIS FOR ONE YEAR ANDTHEN DISCUSS WITH YOUR INSIGHTS ANALYST WHETHER TO STOP. Amiodarone 400mg twice daily [...] follow up: Your primary care provider and steel roller will manage your blood thinner (apixaban). You do not need lab monitoring of this medication. Diet: Please consume a healthy diet low in cholesterol Follow up Appointments: 12/10/2019 at 3:10PM with PCP Angel Luis Lott Future Appointments Date Time Provider Department Center 12/23/2019 1:30 PM Alfreda Salas APRN [facility] [id number] [facility] 12/26/2019 9:40 AM Merlin Sanchez MD [facility] CARD 4A [facility] 12/30/2019 3:40 PM Gretchen Yoon MD [facility] CARD 4A [facility] Future Appointments and Orders Future Appointments and Orders Future Appointments Provider Department Dept Phone 12/23/2019 1:30 PM Alfreda Salas APRN Neurosurgery at [facility] Arrive at: Home [phone] Please do not come in for this visit. Your provider will call you at the number you provided. 12/26/2019 9:40 AM Merlin Sanchez MD Cardiology at [facility] Arrive at: Home [phone] Please do not come in for this visit. Your provider will call you at the number you provided. 12/30/2019 3:40 PM Gretchen Yoon MD Cardiology at [facility] Arrive at: Home [phone] Please do not come in for this visit. Your provider will call you at the number you provided. Future Orders Complete By Expires Referral to Cardiac Rehab [[id number] Custom] As directed Process Instructions: If no progress note charted, please enter Clinical details in comments. Scheduling Instructions: Questions: My question or request is: STEMI. Card[facility] re[facility] at [facility] Referral to [facility] [REF43 Custom] As directed Process Instructions: If no progress note charted, please enter Clinical details in comments. Scheduling Instructions: Questions: My question or request is: patient with inferior stemi with history of statin allergy (rash) - please evaluate for psck9 inhibitor. Referral to Home Health - at DISCHARGE [[id number] CPT(R)] As directed Process Instructions: Scheduling Instructions: Comments: DOCUMENTATION FOR VNA SERVICES PATIENT'S LOCATION: [address] [phone] (home) Sole Leather Cutting Machine Operator's Name: Self In discussion with the attending physician, it is certified that this patient is under his/her care and that MD, or an MOTORCYCLE DELIVERER, HEAD GRINDER, or PA who is working directly with him/her, had a soon-vm-eicv encounter that meets the physician nhyr-wz-xgzl encounter requirements with this patient on 12/07/2019. [...] – [facility], PHONE: [phone] FAX: [phone] Start of care: 24-48 hours after hospital [...] MD [address] / [place] [address] All A agencies which cover the area [...] info: PCP Your PCP: France Lam MD [phone] For questions regarding this document or issues relating to this hospitalization on the Cardiology Service, please contact your inpatient physician through the [facility] Billing Representative . Issues after hours and on weekends will be handled by the Warehouse Foreman on-call. Patient Instructions: Neurology Your Diagnosis: Left [...] in the neurology clinic at [facility]. See below for the appointment time. If you do not have an appointment, you will be called with a time/date for this appointment. ??? Primary Care Provider: Please follow up with your Primary Care Provider within one to 2 weeks ofdischarge. AttachmentsThe following attachments cannot be sent through Care Everywhere. Atrial Fibrillation (Georgian)Cardiac Rehabilitation (Georgian)Heart Failure (Georgian)Heart Failure: Limiting Sodium (Georgian)Hemorrhagic Stroke: General Info (Georgian)Smoking: Stopping (Georgian)Stroke Rehabilitation: General Info (Georgian)Pulmonary Embolism (Georgian)documented in this encounter Medications at Time of [...] consulted in the interim. Vikash Rodriguez Pager: [phone] Paris Dodd MD - 12/08/2019 8:57 AM [...] complications include novel onset, paroxysmal atrial fibrillation [[id number]: 5] & L-sided diplopia with potential hemineglect [...] consulted in the interim. Vikash Rodriguez Pager: [phone] Paris Dodd MD - 12/07/2019 9:55 AM [...] complications include novel onset, paroxysmal atrial fibrillation [QLT6HJ3TOHN: 5] & L-sided diplopia with potential hemineglect [...] complications include novel onset, paroxysmal atrial fibrillation [IIZ3PZ5HGFZ: 5] & L-sided diplopia with potential hemineglect [...] complications include novel onset, paroxysmal atrial fibrillation [DDV2VJ4JGVN: 5] & L-sided diplopia with potential hemineglect [...] today; additional complications include paroxysmal atrial fibrillation [GHN5DH2DNYA: 4] c/b possible cardioembolic stroke, ICH from [...] length from neck/greatest diameter to back wall: TURKS [place]ER 91, CAU 13: 19 mm CORTES 1, [...] a non-culprit artery. S/P DESx3 in the weasvdsk-yu-cueyyc RCA. Aspiration thrombectomy performed, and integrellin bolus [...] complications include novel onset, paroxysmal atrial fibrillation [HOC1QZ6IGUV: 5] & L-sided diplopia with potential hemineglect [...] R occipital cardioembolic stroke #Paroxysmal Afib with CI1OAAIN8C score of 5 #New segmental bilateral PEs [...] Glasgow MD PGY1, Internal Medicine Cardiology S2, #[id number] Associated attestation - Paris Dodd MD - 12/05/2019 2:59 PM EDT I was the assigned attending steel roller for this clinical encounter. For the purposes [...] 12/04/2019 10:36 AM EDT Office of Care Management(OCM)/Data Technician(CM)/Discharge Planning Service: Cardiology S2 team CM Bernie Alexander,RN,BSN,MA,ACM pgr [phone] Reviewed record and in Cardiology Rounds with MD team,CMs, business affairs manager, POULTRY PICKING MACHINE TENDER. Pt is anticipated ready for d/c later today. Met w pt re d/c plan and he continues to agree with home PT/OT/RN w [place]. His son is bringing his to pick him up together. Discussed Advance Directives and DPOAH- he states he has at home and designated his as primiary; he thought his PCP would have copy. Tel call to PCP who notes no DPOAH on file. Encouraged pt to take his AD to his PCP and to any [facility] appt for each to have [...] complications include novel onset, paroxysmal atrial fibrillation [FES6SJ2HWEB: 4] & L-sided diplopia with potential hemineglect [...] a non-culprit artery. S/P DESx3 in the vynztirz-oh-tyaaed RCA. Aspiration thrombectomy performed, and integrellin bolus [...] complications include novel onset, paroxysmal atrial fibrillation [NIM8GP6PNUS: 5] & L-sided diplopia with potential hemineglect [...] R occipital cardioembolic stroke #Paroxysmal Afib with SN1WALHO7F score of 5 - No anticoagulation for [...] Glasgow MD PGY1, Internal Medicine Cardiology S2, #5410 I have seen the patient and reviewed [...] in my clinic. Gretchen Yoon MD Pager [phone] Derian Pascual RN - 12/03/2019 9:29 AM [...] Discharge: None Electronically signed: Derian Pascual RN, Data Technician Pgr: [phone] 12/03/2019 9:29 AM Gretchen Yoon [...] complications include novel onset, paroxysmal atrial fibrillation [ZJI0OD5KSFN: 4] & L-sided diplopia with potential hemineglect [...] a non-culprit artery. S/P DESx3 in the ivacbmkl-cq-gkjxog RCA. Aspiration thrombectomy performed, and integrellin bolus [...] complications include novel onset, paroxysmal atrial fibrillation [HWY8UT1WSAY: 5] & L-sided diplopia with potential hemineglect [...] [facility] and follow up with his PCP. Patient voiced strong will to quit smoking now, understood that we have resources available for help. Plan [P]: --Neurologic-- # Concern for Left-Sided Diplopia, r/o Hemineglect # Concern for CVA, last-known well 11/29/19 - MRI showed possible cardioembolic stroke #Afib with JF0NZOXB7F score of 5 - Stroke Team Consulted; [...] Anticoagulation/Arrhythmia # Novel Onset, Paroxsymal Atrial Fibrillation [NHH8DE7DQDD: 5] - Hold off anticoagulation for at [...] straight cath prn # Nutrition - [facility] Diet, 2g Na. -- Hematology/Oncology-- [...] Glasgow MD PGY1, Internal Medicine Cardiology S2, #4819 I have seen the patient and reviewed the resident's above history and I agree with the details as written. The assessment and plan were formulated in discussion with me and I agree with them as documented. Gretchen Yoon MD Pager [phone] Raul Hein RN - 12/03/2019 5:55 AM [...] Negative mcL Appearance UA Clear Clear Spec [place] UA 1.026 1.006 - 1.030 Color UA [...] PGY3 Neurology Resident 12/01/2019 Vascular Neurology Pager [phone] Neurology Attending Attestation I evaluated the patient [...] Deepthi Roman MD Vascular Neurology Standard [facility] Swallow Screen: This screen is [...] diet as medical provider deems appropriate. Consider GRAPPLER consult for full evaluation and diet recommendations. [...] complications include novel onset, paroxysmal atrial fibrillation [XLE7XG3YKAE: 4] & L-sided diplopia with potential hemineglect [...] a non-culprit artery. S/P DESx3 in the uvfbmlie-rb-laouwy RCA. Aspiration thrombectomy performed, and integrellin bolus [...] complications include novel onset, paroxysmal atrial fibrillation [MUC0RQ6PZMG: 5] & L-sided diplopia with potential hemineglect [...] Anticoagulation/Arrhythmia # Novel Onset, Paroxsymal Atrial Fibrillation [RSY4GM5JTAJ: 5] - Hold off anticoagulation - pending [...] d/t low BP. # Nutrition - [facility] Diet -- Hematology/Oncology-- # Mild [...] the ICU team. Gretchen Yoon MD Pager [phone] Natalia Claros APRN - 12/02/2019 8:38 AM [...] - We are signing off. Please page [phone] with any questions or concerns. For questions please call NS pager [phone] Natalia Claros APRN 12/02/2019 8:38 AM Clinical Documentation Improvement: Active Hospital Problems Diagnosis ??? Acute ST elevation myocardial infarction (STEMI) of inferior wall ??? Intracranial hemorrhage ??? Hyperlipidemia ??? Tobacco abuse ??? Claudication from peripheral vascular disease, left Resolved Hospital Problems No resolved problems to display. Tello Hsu, QUALITY REP - 12/02/2019 2:06 AM EDT 06/01/20 2010 [...] Scan in afternoon. Upon arrival back in [facility] placed on low flow NC at [...] complications include novel onset, paroxysmal atrial fibrillation [[id number]: 4] & L-sided diplopia with potential hemineglect for which CVA evaluationto be pursued. Active Problems/Subjective: - 11/28: admitted for inferior STEMI, RV failure requiring pressor - got lytics, aspirin and plavix load, heparin gtt, and eptifibatide. 3 MACARIO stents to RCA. [employer] cath - low wedge & CVP so [...] a non-culprit artery. S/P DESx3 in the kwttmqdy-nt-lxajna RCA. Aspiration thrombectomy performed, and integrellin bolus [...] complications include novel onset, paroxysmal atrial fibrillation [[id number]: 4] & L-sided diplopia with potential hemineglect [...] Anticoagulation/Arrhythmia # Novel Onset, Paroxsymal Atrial Fibrillation [[id number]: 4] - Obtain: TTE - Pending CVA [...] d/t low BP. # Nutrition - [facility] Diet -- Hematology/Oncology-- # Mild [...] MD, PGY1 PGY3, Internal Medicine Cardiology S2, #[id number] I have seen the patient and reviewed [...] down the line. Gretchen Yoon MD Pager [phone] ?? Gretchen Yoon MD Pager [phone] Natalia Claros APRN - 12/01/2019 1:33 AM [...] per primary team For questions please call [employer] pager [phone] Natalia Claros APRN 12/01/2019 7:42 AM Clinical Documentation Improvement: Active Hospital Problems Diagnosis ??? Acute ST elevation myocardial infarction (STEMI) of inferior wall ??? Intracranial hemorrhage ??? Hyperlipidemia ??? Tobacco abuse ??? Claudication from peripheral vascular disease, left Resolved Hospital Problems No resolved problems to display. Tello Hsu, QUALITY REP - 11/30/2019 8:44 PM EDT Respiratory Therapy [...] EDT Narrative:Visited in response to request for Spinning Frame Fixer services. Pt was awake, alert, oriented and in bed. Assessment:Patient coping positively with stresses of illness/hospitalization at this time. Pt says that he is hoping to get better and pt is living with and has children and grandchildren. Pt haspurpose of life and has reason to get getter and to be with family. Outcome: Provided emotional and spiritual support and encouraging presence. [employer]ning [employer] services accepted.Conversation to build trusting relationship.Provided pastoral [...] complications include novel onset, paroxysmal atrial fibrillation [[id number]: 4] & L-sided diplopia with potential hemineglect for which CVA evaluationto be pursued. Active Problems/Subjective: - Overnight, CVP < 12 for which a total of 1 L IVF provided - Today AM, patient complains of subjectively reported, left-sided hemineglect with floaters and diplopia [see: exam]. - Otherwise, c/o neck pain 2/2 R IJ [employer] & L radial A line. Otherwise, denies [...] a non-culprit artery. S/P DESx3 in the xwfrszbc-op-lemixl RCA. Aspiration thrombectomy performed, and integrellin bolus [...] complications include novel onset, paroxysmal atrial fibrillation [[id number]: 4] & L-sided diplopia with potential hemineglect [...] Anticoagulation/Arrhythmia # Novel Onset, Paroxsymal Atrial Fibrillation [[id number]: 4] - Obtain: TTE to confirm rhythm [...] d/t low BP. # Nutrition - [facility] Diet -- Hematology/Oncology-- # Mild [...] MD, PGY3 PGY3, Internal Medicine Cardiology S2, #[id number] I have seen the patient and reviewed [...] down the line. Gretchen Yoon MD Pager Paola Capps RN - 11/30/2019 6:57 AM EDT PT still requiring 4 of levo, several attempts to titrate down (maps in 70;s) But maps would drop toless than 65. Pt very restless in bed Raising and lowering head denies pain . Integrillin stopped [id number] when bottle complete , urine tea colored [...] PCP: France Lam MD PCP phone #: [phone] Property Disposal Officer: None ID/Chief Complaint: Chest pain History of [...] Compazine. He was transferred directly to [facility] via [facility] for further management. Patient had an emergent PCI with 3 MACARIO stents placed to his RCA, with mild disease of LCX (report pending) at [facility]. He was found to be persistently hypotensive requiring Levo up to 10mcg/min. He was transferred to [facility] after the cath procedure. Bedside RHC showed CI 2.12, PAWP 11, PAP 38/15 indicating hypovolemic state. He received 1L bolus of NS with improvement of his blood pressure to 124/61. History of PAD, HLD - had side reactions to statins - so taking niacin and red rye grain. Chronic active smoker with more than 65 pack years. Family history of [place] in father and two uncles. He's takingbaby [...] ??? Penicillins Pt doesn't remember reaction ??? Kzwkaqf-Jbd-Nhq Reductase Inhibitors Stiff neck, upset stomach, back pain Family History: Mother: Father: [place] 2 Uncles with MIs Social History: Tobacco: Current active smoker 1 ppd. 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 Vitals: Last value Range last [...] in the last 7068 hours. Invalid input(s): [id number] Heme: No results for input(s): LDH, HAPTOGLOBIN, [...] prior to transfer and PCI at [facility]. Massive inferior STEMI with troponin level 20, currently in CVCC due to pressor requirement. BedsideRHC demonstrated evidence of elevated right sided heart failure, but his wedge was wnl. He received 1L bolus with improvement of his blood pressure and reduction of his pressor requirement. PLAN: Admit to Cardiology, S2 Team Pager # [phone] #Inferior STEMI, LEYLA 149 - Resolving EKG [...] STEMI s/p lytic therapy. Transferred to [facility] and underwent successful PCI of the RCA with MACARIO x3. Gretchen Yoon MD Pager [phone] documented in this encounter Procedure Notes Juventino [...] to the planned procedure. Hand Hygiene: The grain oilseed or pasture grower did perform hand hygiene prior to arterial [...] a suspected line-associated infection. Location of Procedure: [facility] Risks and Benefits: The risks and [...] to the planned procedure. Hand Hygiene: The grain oilseed or pasture grower did perform hand hygiene prior to line [...] side:right An Introducer (PSI Kit) was used. [place]. Insertion Side: right. Insertion Site: internal jugular. Catheter Details: Number of Lumens: 1 Catheter Type: heparin-coated The line was placed over a guidewire. Confirmation of Venous Placement: Venous placement was confirmed by transducing the pressure. Introducer Insertion Attempts: 1 Comments: Floating the [employer] Catheter Attempts: 1 Comments: Sterile Dressing: Biopatch [...] better pt back in SR. Please page [phone] for any more cares or concerns Plan [...] complications include novel onset, paroxysmal atrial fibrillation [[id number]: 5]& L-sided diplopia with potential hemineglect for [...] Total Evaluation Minutes, Occupational Therapy: 10 Pager: [phone] FRANCINE Nuñez Occupational Therapy Rehabilitation Department Plan [...] complications include novel onset, paroxysmal atrial fibrillation [[id number]: 5] & L-sided diplopia with potential hemineglect [...] hand rails). Baseline Mobility: Independent. Drives. Shares registered nurse fetal with his , however her mobility is [...] plan as stated. Time IN / OUT: 1221-7412 Total Evaluation Minutes, Physical Therapy: 15(gtx1) Barbara Baldwin, PT Pager: [phone] Physical Therapy Inpatient Rehabilitation Department Plan of [...] he receives all he needs through the [facility]. Consult refused. Romain Tran, MSN, RN-, [facility] Tobacco Oyster Shipper [facility] Pager [phone] Plan of Care - Romain Oglesby OT [...] complications include novel onset, paroxysmal atrial fibrillation [[id number]: 5] & L-sided diplopia with potential hemineglect [...] and measurable assessment of functional outcome. Pager: [phone] ROMAIN OGLESBY OT 12/03/2019 Occupational Therapy Rehabilitation [...] in an outpatient cardiac rehabilitation program at [facility] was discussed. Patient agrees to a referral to this program. His has been a cardiac rehab patient at [facility] and he is familiar with the [...] complications include novel onset, paroxysmal atrial fibrillation [[id number]: 5] & L-sided diplopia with potential hemineglect [...] hand rails). Baseline Mobility: Independent. Drives. Shares registered nurse fetal with his , however her mobility is [...] in this evaluation. Time IN / OUT: 3693-3988 Total Evaluation Minutes, Physical Therapy: 25(eval, gtx1) Barbara Baldwin, PT Pager: [phone] Physical Therapy Inpatient Rehabilitation Department Consult Note [...] 31.2 (L) 12/01/2019 Nutritional Intake Current bed: [facility] A.I.R. Assessment: Patient is with [...] Please contact JOHANNA NOBLES RN on pager [phone] or the wound care team at [phone] or pager [phone] skin and wound care concerns or questions. [...] Salinas would be surrogate decision maker per [place] surrogate decision making law. Any patient receiving carspousee at [facility] must abide by [place] law. The hierarchy for surrogate decisionmaking is: [...] The agent with financial power of civil attorney or a conservator appointed in accordance [...] Insurance: N/A Prescription Coverage: Yes Preferred Pharmacy: [place], [place] Other: No Primary Care Provider: France Lam MD [phone] Patient/Caregiver Goals of Treatment: Return home Potential Needs for Transition of Care: Rehab/SNF: Based on discussions with the multi-disciplinary healthcare team, the patient would benefit from SNF level of care at discharge. ?? I have met with the patient to discuss discharge planning needs. I have provided the [facility], Officeof Care Management letter from the Solution Design Engineer pertaining to rehab referrals. I have also provided a letter describing our affiliations within the [facility] and educated them about their [...] patient have requested referrals to: ?? 1. [facility] [address] [place] [id number] ?? [address]. [address] [place] [address] Note routed to Counter Attendant who will communicate referrals to facilities and provide any required information. Home Health: If therapies recommend home w/ VNA, the patient has been provided a list of Home Health Agencies/DME vendors which serve their preferred geographic area. A letter describing our affiliations was reviewed with them and they were educated about their right to choose where referrals are placed. Patient requests referral to [facility] [place], [place]. PHONE: [phone] FAX: [phone] Referral routed to the Counter Attendant for matching with agency/vendor and to provide [...] Insured w/ Medicare. Gets medications filled at [facility] in [place], [place]. Son to transport at discharge Plan: Discharge dispo depending on patient's physical recovery; SNF vs home w/ VNA. A member of the Care Management team will continue to monitor progress, follow for continuity of care and assist with transition of care planning. Derian Pascual, NIURKA Pager: [phone] Plan of Care - Estefani Baeza RN [...] ??? Penicillins Pt doesn't remember reaction ??? Pspsuvy-Cev-Hrz Reductase Inhibitors Stiff neck, upset stomach, back [...] noncontrast head CT and CT of the nikolai of [place] at 1600 hrs. We will [...] concerning for stroke. Patient presented to [facility] in transfer for a STEMI [...] ??? Penicillins Pt doesn't remember reaction ??? Soudebo-Nuu-Zmq Reductase Inhibitors Stiff neck, upset stomach, back [...] L Elbow flexion 5/5 R, 5/5 L Equalizing Saw Operator LE: 5/5 R, 5/5 L Hip [...] PGY3 Neurology Resident 11/30/2019 Vascular Neurology Pager [phone] Standard [facility] Swallow Screen: This screen is [...] diet as medical provider deems appropriate. Consider GRAPPLER consult for full evaluation and diet recommendations. [...] Mejia MD Department of Neurology [facility] Brief Op Note - Gretchen Yoon MD - 11/29/2019 8:38 PM EDT Brief Operative Note Patient Name: Angel Luis Salinas : [id number] MR#: [id number] Case Date: 11/29/2019 Surgeon: Surgeon(s) and Role: * Gretchen Yoon MD - Primary * Aidan Ward MD - Fellow Preoperative diagnosis: Inferior STEMI Postoperative diagnosis: Inferior STEMI Procedure(s) (LRB): CARDIAC CATHETERIZATION (N/A) Findings: Discrete 90% stenosis in the prox-to-mid RCA. Severe diffuse disease in the distal vessel. Discrete LCX stenosis in a non-culprit artery. S/P DESx3 in the sayqimpw-nx-solixq RCA. Aspiration thrombectomy performed, and integrellin bolus [...] are i n the results section. CT [facility] STAT 11/30/2019 4:36 Res [...] athologist Signature Potassium 3.9 3.5 - 5.0 [facility] mmol/L [facility] Comment: Please note: ??Patients [...] Organization Address City/State/[place] [address] (ABNORMAL) Hemogram (12/08/2019 12:39 PM EDT) Analysis Performed At Patho logist Time Signature WBC 9.9 (H) 4.0 - 9.5 [facility] x10(3)/[facility] LABORATORY RBC 4.51 (L) 4.58 - [place] DOV 5.54 [facility] x10(6)/[facility] LABORATORY Hemoglobin 13.0 (L) 13.7 - [place] D[place] 16.5 gm/dL [facility] Hematocrit 40.5 40.5 - [place] D[place] 48.5 % [facility] MCV 89.8 82.9 - [facility] DOV 93.1 [facility] LABORATORY MCH 28.8 27.5 - [place] 32.1 pg [facility] MCHC 32.1 32.0 - [place] 35.7 gm/dL [facility] Platelets 214 145 - 357 [facility] x10(3)/[facility] LABORATORY RDWSD 49.2 (H) 36.0 - [place] D[place] 45.0 [facility] LABORATORY RDWCV 15.1 (H) 11.4 - [place] 13.8 % [facility] MPV 12.1 7.6 - 12.9 [facility] nRBC % Auto 0.0 % [facility] LABORATORY nRBC Abs Auto 0.000 0.000 - [place] D[place] 0.000 [facility] x10(3)/[facility] LABORATORY Specimen Anatomical Collection Method Collection Time Receive d Time (Source) Location / / Volume Laterality Blood specimen 12/08/2019 12:39 0 (specimen) PM EDT 12:47 PM EDT Resulting Agency Comment Spec In Lab Gretchen Yoon MD HEMATOLOGY ORDERABLES Performing Organization Address City/State/ZIP Code Phon e Number [address] Hepatic Function Panel (12/08/2019 6:28 AM EDT) athologist Signature Total Protein 6.6 6.1 - 8.0 [facility] DOV gm/dL [facility] Albumin 3.2 3.2 - 5.2 [place] gm/dL [facility] AST 18 0 - 39 [place] unit/L [facility] ALT 13 0 - 55 [place] unit/L [facility] Alk Phos 64 40 - 130 [facility] DOV unit/L [facility] Total 0.4 0.2 - 1.3 [facility] Bilirubin mg/dL [facility] Bili, Direct 0.1 0.0 - 0.3 [facility] DOV mg/dL [facility] Specimen Anatomical Collection Method Collection Time Receive d Time (Source) Location / / Volume Laterality Blood specimen Venous Draw / 12/08/2019 6:28 AM 2019 6:36 (specimen) Unknown EDT AM EDT Resulting Agency Comment Spec In Lab Riki Stevens MD CHEMISTRY ORDERABLES Performing Organization Address City/[facility]/ZIP Code Phon e Number [address] (ABNORMAL) TSH (12/08/2019 6:28 AM EDT) athologist Signature TSH 5.27 (H) 0.27 - 4.20 [facility] DOV mcIU/mL [facility] Specimen Anatomical Collection Method Collection Time Receive d Time (Source) Location / / Volume Laterality Blood specimen Venous Draw / 12/08/2019 6:28 AM 2019 6:36 (specimen) Unknown EDT AM EDT Resulting Agency Comment Spec In Lab Darrell Glasgow MD CHEMISTRY ORDERABLES Performing Organization Address City/[facility]/ZIP Code Phon e Number [address] Potassium (12/08/2019 6:28 AM EDT) P athologist Signature Potassium 4.2 3.5 - 5.0 [facility] mmol/L [facility] Comment: Please note: ??Patients [...] Organization Address City/State/ZIP Code Phon e Number [place] [id number] [address] (ABNORMAL) Differential, Automated (12/08/2019 12:43 AM EDT) Patholo gist Method Time Signature Neutrophils % 60.7 % [facility] LABORATORY Neutr Abs (ANC) 6.81 (H) 1.70 - [facility] 6.10 [facility] x10(3)/[facility] LABORATORY Lymphocytes % 23.4 % [facility] LABORATORY Lymphocytes Abs 2.6 0.9 - 3.2 [facility] x10(3)/[facility] LABORATORY Monocytes % 10.0 % [facility] LABORATORY Monocyte Abs 1.1 (H) 0.3 - 0.9 [facility] x10(3)/[facility] LABORATORY Eosinophils % 3.7 % [facility] LABOR[facility]ORY Eosinophils Abs 0.4 0.0 - 0.4 [facility] x10(3)/[facility] LABORATORY Basophils % 1.2 % [facility] LABORATORY Basophils Abs 0.1 0.0 - 0.1 [facility] x10(3)/[facility] LABORATORY Immature Gran % 1.00 % BAR[facility] [...] Gran Abs 0.11 (H) 0.00 - 0.04 x10(3)/[facility] LABORATORY Specimen Anatomical Collection Method Collection Time Receive d Time (Source) Location / / Volume Laterality Blood specimen 12/08/2019 12:43 0 (specimen) AM EDT 12:52 AM EDT Resulting Agency Comment Spec In Lab Riki Stevens MD HEMATOLOGY ORDERABLES Performing Organization Address City/State/[place] [address] (ABNORMAL) Hemogram (12/08/2019 12:43 AM EDT) Analysis Performed At Patho logist Time Signature WBC 11.2 (H) 4.0 - 9.5 [facility] x10(3)/[facility] LABORATORY RBC 4.46 (L) 4.58 - [facility] DOV 5.54 [facility] x10(6)/[facility] LABORATORY Hemoglobin 13.1 (L) 13.7 [facility] 16.[facility] gm/dL [facility] Hematocrit 40.5 40.5 - [facility] DOV 48.5 % [facility] MCV 90.8 82.9 - [facility] 93.1 [facility] LABORATORY MCH 29.4 27.5 - [facility] DOV 32.1 pg [facility] MCHC 32.3 32.0 - [facility] DOV 35.7 gm/dL [facility] Platelets 215 145 - 357 [facility] x10(3)/[facility] LABORATORY RDWSD 49.8 (H) 36.0 - [facility] DOV 45.0 [facility] LABORATORY RDWCV 15.2 (H) 11.4 - [facility] DOV 13.8 % [facility] MPV 12.3 7.6 - 12.9 [facility] LABORATORY nRBC % Auto 0.0 % [facility] LABORATORY nRBC Abs Auto 0.000 0.000 - [facility] DOV 0.000 [facility] x10(3)/[facility] LABORATORY Specimen Anatomical Collection Method Collection Time Receive d Time (Source) Location / / Volume Laterality Blood specimen 12/08/2019 12:43 0 (specimen) AM EDT 12:52 AM EDT Resulting Agency Comment Spec In Lab Riki Stevens MD HEMATOLOGY ORDERABLES Performing Organization Address City/State/ZIP Code Phon e Number [address] Magnesium (12/08/2019 12:43 AM EDT) athologist Signature Magnesium 1.01 0.69 - 1.07 [facility] mmol/L [facility] Specimen Anatomical Collection Method Collection Time Receive d Time (Source) Location / / Volume Laterality Blood specimen 12/08/2019 12:43 0 (specimen) AM EDT 12:52 AM EDT Resulting Agency Comment Spec In Lab Gretchen Yoon MD CHEMISTRY ORDERABLES Performing Organization Address City/State/[place] [address] (ABNORMAL) BMP w/fasting Glucose (12/08/2019 12:43 AM EDT) P athologist Signature Glucose 106 (H) 65 - [facility] Fasting mg/dL [facility] Comment: ?Fasting* Glucose Interpretive [...] of Diabetes Mellitus, Position Statement from the [place] [employer]. ??Diabete s Care, Volume 33, Supplement 1, Jul 2009 BUN 14 10 - 20 mg/dL [facility] DOV [facility] LABORATORY Creatinine 1.16 0.80 - 1.50 [...] of body mass or the acutely ill. [email or web address]INITAnkf eGFR 72 >=60 mL/min/1.73 m?? [facility] LABOR[facility]ORY Comment: The eGFR was calculated using the CKD-EP I equation. As with all creatinine based estimates of kidney function, eGFR values calculated with the CKD-EPI equation are not accurate in patients wi th acute kidney failure, extremes of body mass or the acutely ill. [email or web address] Specimen Anatomical Collection Method Collection Time Receive d Time (Source) Location / / Volume Laterality Blood specimen 12/08/2019 12:43 0 (specimen) AM EDT 12:52 AM EDT Resulting Agency Comment Spec In Lab Gretchen Yoon MD CHEMISTRY ORDERABLES Performing Organization Address City/State/ZIP Code Phon e Number [place] [id number] Heparin (unfractionated) Level (12/08/2019 12:43 AM EDT) athologist Signature Heparin UFH 0.60 IU/mL [facility] LABORATORY Comment: Guidelines for therapeutic unfractionate [...] Organization Address City/State/[place] [address] Potassium (12/07/2019 8:39 PM EDT) athologist Signature Potassium 4.1 3.5 - 5.0 [facility] mmol/L [facility] Comment: Please note: ??Patients [...] Organization Address City/State/ZIP Code Phon e Number [address] Potassium (12/07/2019 4:02 PM EDT) P athologist Signature Potassium 4.0 3.5 - 5.0 [facility] D[facility] mmol/L [facility] Comment: Please note: ??Patients [...] Yoon MD CHEMISTRY ORDERABLES Performing Organization Address City/[facility]/[place] [address] (ABNORMAL) Hemogram (12/07/2019 4:02 PM EDT) Analysis Performed At Patho logist Time Signature WBC 17.4 (H) 4.0 - 9.5 [place] x10(3)/[facility] LABORATORY RBC 4.58 4.58 - [place] DOV 5.54 [facility] x10(6)/[facility] LABORATORY Hemoglobin 13.5 (L) 13.7 - [place] 16.5 gm/dL [facility] Hematocrit 40.8 40.5 - [place] D[place] 48.5 % [facility] MCV 89.1 82.9 - [place] 93.1 [facility] LABORATORY MCH 29.5 27.5 - [place] DOV 32.1 pg [facility] MCHC 33.1 32.0 - [place] 35.7 gm/dL [facility] Platelets 238 145 - 357 [place] [facility] x10(3)/[facility] LABORATORY RDWSD 48.8 (H) 36.0 - [place] DOV 45.0 [facility] LABORATORY RDWCV 15.0 (H) 11.4 - [facility] DOV 13.8 % [facility] MPV 12.2 7.6 - 12.9 [place] DOV [facility] LABORATORY nRBC % Auto 0.0 % [facility] LABORATORY nRBC Abs Auto 0.000 0.000 - [place] MONAE 0.000 [facility] x10(3)/[facility] LABORATORY Specimen Anatomical Collection Method Collection Time Receive d Time (Source) Location / / Volume Laterality Blood specimen 12/07/2019 4:02 PM 020 4:08 (specimen) EDT PM EDT Resulting Agency Comment Spec In Lab Gretchen Yoon MD HEMATOLOGY ORDERABLES Performing Organization Address City/[facility]/[place] [address] EKG 12 Lead (12/07/2019 [...] (Bezet) Calculated P -12 degrees MUSE SYSTEM [place] Calculated R 10 degrees MUSE SYSTEM [place] Calculated T -138 degrees MUSE SYSTEM [place] INTERPRETATION Supraventricular tachycardia MUSE SYSTEM Low voltage [...] athologist Signature Potassium 4.2 3.5 - 5.0 [facility] mmol/L [facility] Comment: Please note: ??Patients [...] Lag[place] MD CHEMISTRY ORDERABLES Performing Organization Address [facility] [place] [address] Heparin (unfractionated) Level (12/07/2019 11:43 AM EDT) athologist Signature Heparin UFH 0.59 IU/mL [facility] LABORATORY Comment: Guidelines for therapeutic unfractionate [...] Lagos MD HEMATOLOGY ORDERABLES Performing Organization Address [facility] [place] [address] Heparin (unfractionated) Level (12/07/2019 5:20 AM EDT) P athologist Signature Heparin UFH 0.53 IU/mL [facility] LABORATORY Comment: Guidelines for therapeutic unfractionate [...] EDT Resulting Agency Comment Spec In Lab Parsi Lagos MD HEMATOLOGY ORDERABLES Performing Organization Address City/State/[place] [address] (ABNORMAL) Differential, Automated (12/07/2019 5:20 AM EDT) Patholo gist Method Time Signature Neutrophils % 62.4 % [facility] LABORATORY Neutr Abs (ANC) 5.46 1.70 - [facility] 6.10 [facility] x10(3)/[facility] LABORATORY Lymphocytes % 20.3 % [facility] LABORATORY Lymphocytes Abs 1.8 0.9 - 3.2 [facility] x10(3)/[facility] LABORATORY Monocytes % 11.0 % [facility] LABORATORY Monocyte Abs 1.0 (H) 0.3 - 0.9 [facility] x10(3)/[facility] LABORATORY Eosinophils % 4.5 % [facility] LABORATORY Eosinophils Abs 0.4 0.0 - 0.4 [facility] x10(3)/[facility] LABORATORY Basophils % 0.9 % [facility] LABORATORY Basophils Abs 0.1 0.0 - 0.1 [facility] x10(3)/[facility] LABORATORY Immature Gran % 0.90 % BAR[facility] [...] Gran Abs 0.08 (H) 0.00 - 0.04 x10(3)/[facility] LABORATORY Specimen Anatomical Collection Method Collection Time Receive d Time (Source) Location / / Volume Laterality Blood specimen 12/07/2019 5:20 AM 020 5:37 (specimen) EDT AM EDT Resulting Agency Comment Spec In Lab Riki Stevens MD HEMATOLOGY ORDERABLES Performing Organization Address City/State/[place] [address] (ABNORMAL) Hemogram (12/07/2019 5:20 AM EDT) Analysis Performed At Patho logist Time Signature WBC 8.7 4.0 - 9.5 [facility] x10(3)/[facility] LABORATORY RBC 4.20 (L) 4.58 - [facility] 5.54 [facility] x10(6)/[facility] LABORATORY Hemoglobin 12.3 (L) 13.7 - [facility] 16.5 gm/dL [facility] LABORATORY Hematocrit 37.4 (L) 40.5 - [facility] 48.5 % [facility] LABORATORY MCV 89.0 82.9 - [facility] 93.1 fL [facility]ATORY MCH 29.3 27.[facility] LABORATORY MCHC 32.9 32.0 - [facility] 35.7 gm/dL [facility] LABORATORY Platelets 181 145 - 357 [facility] x10(3)/[facility] LABORATORY RDWSD 47.7 (H) 36.0 - [facility] MON[facility] 45.0 [facility] LABORATORY RDWCV 14.8 (H) 11.4 - [facility] 13.8 % [facility] LABORATORY MPV 12.3 7.6 - 12.9 [facility] DOV [facility] LABORATORY nRBC % Auto 0.0 % [facility] LABORATORY nRBC Abs Auto 0.000 0.000 - [facility] 0.000 [facility] x10(3)/[facility] LABORATORY Specimen Anatomical Collection Method Collection Time Receive d Time (Source) Location / / Volume Laterality Blood specimen 12/07/2019 5:20 AM 020 5:37 (specimen) EDT AM EDT Resulting Agency Comment Spec In Lab Riki Stevens MD HEMATOLOGY ORDERABLES Performing Organization Address City/[facility]/ZIP Code Phon e Number [address] Magnesium (12/07/2019 5:20 AM EDT) P athologist Signature Magnesium 0.89 0.69 - 1.07 [facility]L [facility] LABORATORY Specimen Anatomical Collection Method Collection Time Receive d Time (Source) Location / / Volume Laterality Blood specimen 12/07/2019 5:20 AM 020 5:37 (specimen) EDT AM EDT Resulting Agency Comment Spec In Lab Gretchen Yoon MD CHEMISTRY ORDERABLES Performing Organization Address City/[facility]/ZIP Code Phon e Number [address] (ABNORMAL) BMP w/fasting Glucose (12/07/2019 5:20 AM EDT) P athologist Signature Glucose 100 (H) 65 - [facility]/dL [facility] LABORATORY Comment: ?Fasting* Glucose Interpretive [...] of Diabetes Mellitus, Position Statement from the [employer]. ??Diabete s Care, Volume 33, [...] of body mass or the acutely ill. [email or web address] eGFR 101 >=60 mL/min/1.73 m?? [facility] LABORATORY Comment: The eGFR was calculated using the CKD-EP I equation. As with all creatinine based estimates of kidney function, eGFR values calculated with the CKD-EPI equation are not accurate in patients wi th acute kidney failure, extremes of body mass or the acutely ill. [email or web address] Specimen Anatomical Collection Method Collection Time Receive d Time (Source) Location / / Volume Laterality Blood specimen 12/07/2019 5:20 AM 020 5:37 (specimen) EDT AM EDT Resulting Agency Comment Spec In Lab Gretchen Yoon MD CHEMISTRY ORDERABLES Performing Organization Address [facility] [place] [address] Heparin (unfractionated) Level (12/06/2019 10:14 PM EDT) athologist Signature Heparin UFH 0.29 IU/mL [facility] LABORATORY Comment: Guidelines for therapeutic unfractionate [...] Lagos MD HEMATOLOGY ORDERABLES Performing Organization Address [facility] [place] [address] Head wo Contrast [...] For questions regarding this report, please contact [facility] number below. ? Electronically signed by: Merari Collins [facility] ([phone]), at 12/06/2019 10:06 PM Narrative 12/06/2019 10:06 [...] Electronically signed by: Merari Collins [facility] ([phone]), at 12/06/2019 10:06 PM Paris Lagos MD IMG CT ORDERABLES (ABNORMAL) Hemogram (12/06/2019 4:20 PM EDT) Analysis Performed At Patho logist Time Signature WBC 10.4 (H) 4.0 - 9.5 [facility] x10(3)/[facility] LABORATORY RBC 4.32 (L) 4.58 - [facility] DOV 5.54 [facility] x10(6)/[facility] LABORATORY Hemoglobin 12.5 (L) 13.7 - [facility] 16.[facility] gm/dL [facility] LABORATORY Hematocrit 38.4 (L) 40.5 - [facility] 48.5 % [facility] LABORATORY MCV 88.9 82.9 - [facility] 93.1 [facility] LABORATORY MCH 28.9 27.5 - [facility] DOV 32.1 pg [facility] LABORATORY MCHC 32.6 32.0 - [facility] 35.7 gm/dL [facility] LABORATORY Platelets 194 145 - 357 [facility] x10(3)/[facility] LABORATORY RDWSD 46.9 (H) 36.0 - [facility] 45.0 [facility] LABORATORY RDWCV 14.6 (H) 11.4 - [facility] 13.8 % [facility] LABORATORY MPV 11.9 7.6 - 12.9 [facility] LABORATORY nRBC % Auto 0.0 % [facility] LABORATORY nRBC Abs Auto 0.000 0.000 - [facility] DOV 0.000 [facility] x10(3)/[facility] LABORATORY Specimen Anatomical Collection Method Collection Time Receive d Time (Source) Location / / Volume Laterality Blood specimen 12/06/2019 4:20 PM 020 4:31 (specimen) EDT PM EDT Resulting Agency Comment Spec In Lab Gretchen Yoon MD HEMATOLOGY ORDERABLES Performing Organization Address City/State/[place] [address] Heparin (unfractionated) Level (12/06/2019 4:20 PM EDT) P athologist Signature Heparin UFH 0.30 IU/mL [facility] LABORATORY Comment: Guidelines for therapeutic unfractionate [...] Organization Address City/State/[place] [address] Heparin (unfractionated) Level (12/06/2019 10:02 AM EDT) athologist Signature Heparin UFH <0.04 IU/mL [facility] LABORATORY Comment: Guidelines for therapeutic unfractionate [...] Lagos MD HEMATOLOGY ORDERABLES Performing Organization Address City/[facility]/ZIP Code Phon e Number [address] Magnesium (12/06/2019 3:36 AM EDT) P athologist Signature Magnesium 0.86 0.69 - 1.07 [facility] mmol/L [facility] LABORATORY Specimen Anatomical Collection Method Collection Time Receive d Time (Source) Location / / Volume Laterality Blood specimen 12/06/2019 3:36 AM 020 3:45 (specimen) EDT AM EDT Resulting Agency Comment Spec In Lab Gretchen Yoon MD CHEMISTRY ORDERABLES Performing Organization Address City/[facility]/ZIP Code Phon e Number [address] (ABNORMAL) BMP w/fasting Glucose (12/06/2019 3:36 AM EDT) P athologist Signature Glucose 103 (H) 65 - 99 [facility] Fasting mg/dL [facility] LABORATORY Comment: ?Fasting* Glucose Interpretive [...] of Diabetes Mellitus, Position Statement from the [place] [employer]. ??Diabete s Care, Volume 33, [...] of body mass or the acutely ill. [email or web address] eGFR 99 >=60 mL/min/1.73 m?? [facility] LABORATORY Comment: The eGFR was calculated using the CKD-EP I equation. As with all creatinine based estimates of kidney function, eGFR values calculated with the CKD-EPI equation are not accurate in patients wi th acute kidney failure, extremes of body mass or the acutely ill. [email or web address] Specimen Anatomical Collection Method Collection Time Receive d Time (Source) Location / / Volume Laterality Blood specimen 12/06/2019 3:36 AM 020 3:45 (specimen) EDT AM EDT Resulting Agency Comment Spec In Lab Gretchen Yoon MD CHEMISTRY ORDERABLES Performing Organization Address City/State/ZIP Code Phon e Number [address] (ABNORMAL) Hemogram (12/06/2019 3:36 AM EDT) Analysis Performed At Patho logist Time Signature WBC 9.2 4.0 - 9.5 [facility] x10(3)/[facility] LABORATORY RBC 3.99 (L) 4.58 - [facility] D[facility] 5.54 [facility] x10(6)/[facility] LABORATORY Hemoglobin 11.9 (L) 13.7 - [facility] 16.[facility] gm/dL [facility] LABORATORY Hematocrit 35.5 (L) 40.5 - [facility] 48.5 % [facility] LABORATORY MCV 89.0 82.9 - [facility] 93.1 [facility] LABORATORY MCH 29.8 27.5 - [facility] 32.1 pg [facility] LABORATORY MCHC 33.5 32.0 - [facility] [facility] 35.7 gm/dL [facility] LABORATORY Platelets 164 145 - 357 [facility] x10(3)/[facility] LABORATORY RDWSD 47.6 (H) 36.0 - [facility] 45.0 [facility] LABORATORY RDWCV 14.7 (H) 11.4 - [facility] 13.8 % [facility] LABORATORY MPV 11.9 7.6 - 12.9 [facility] LABORATORY nRBC % Auto 0.0 % [facility] LABORATORY nRBC Abs Auto 0.000 0.000 - [facility] DOV 0.000 [facility] x10(3)/[facility] LABORATORY Specimen Anatomical Collection Method Collection Time Receive d Time (Source) Location / / Volume Laterality Blood specimen 12/06/2019 3:36 AM 020 3:45 (specimen) EDT AM EDT Resulting Agency Comment Spec In Lab Gretchen Yoon MD HEMATOLOGY ORDERABLES Performing Organization Address City/[facility]/ZIP Code Phon e Number [address] (ABNORMAL) Differential, Automated (12/05/2019 10:52 PM EDT) Patholo gist Method Time Signature Neutrophils % 61.9 % [facility] LABORATORY Neutr Abs (ANC) 6.02 1.70 - [facility] 6.10 [facility] x10(3)/[facility] LABORATORY Lymphocytes % 22.4 % [facility] LABORATORY Lymphocytes Abs 2.2 0.9 - 3.2 [facility] x10(3)/[facility] LABORATORY Monocytes % 10.4 % [facility] LABORATORY Monocyte Abs 1.0 (H) 0.3 - 0.9 [facility] x10(3)/[facility] LABORATORY Eosinophils % 4.1 % [facility] LABORATORY Eosinophils Abs 0.4 0.0 - 0.4 [facility] x10(3)/[facility] LABORATORY Basophils % 0.7 % [facility] LABORATORY Basophils Abs 0.1 0.0 - 0.1 [facility] x10(3)/[facility] LABORATORY Immature Gran % 0.50 [...] Gran Abs 0.05 (H) 0.00 - 0.04 x10(3)/[facility] LABORATORY Specimen Anatomical Collection Method Collection Time Receive d Time (Source) Location / / Volume Laterality Blood specimen 12/05/2019 10:52 0 (specimen) PM EDT 10:59 PM EDT Resulting Agency Comment Spec In Lab Mandi Barrera MD HEMATOLOGY ORDERABLES Performing Organization Address City/State/[place] [address] (ABNORMAL) Hemogram (12/05/2019 10:52 PM EDT) Analysis Performed At [facility] logist Time Signature WBC 9.7 (H) 4.0 - 9.5 [facility] x10(3)/[facility] LABORATORY RBC 4.07 (L) 4.58 - [facility] 5.54 [facility] x10(6)/[facility] LABORATORY Hemoglobin 11.9 (L) 13.7 - [facility] 16.5 gm/dL [facility] LABORATORY Hematocrit 36.4 (L) 40.5 - [facility] [place] 48.5 % [facility] LABORATORY MCV 89.4 82.9 - [facility] 93.1 [facility] LABORATORY MCH 29.2 27.5 - [facility] 32.1 pg [facility] LABORATORY MCHC 32.7 32.0 - [facility] 35.7 gm/dL [facility] LABORATORY Platelets 167 145 - 357 [facility] x10(3)/[facility] LABORATORY RDWSD 47.7 (H) 36.0 - [facility] 45.0 [facility] LABORATORY RDWCV 14.6 (H) 11.4 - [facility] 13.8 % [facility] LABORATORY MPV 12.1 7.6 - 12.9 [facility] LABORATORY nRBC % Auto 0.0 % [facility] LABORATORY nRBC Abs Auto 0.000 [facility].000 [facility] x10(3)/[facility] LABORATORY Specimen Anatomical Collection Method Collection Time Receive d Time (Source) Location / / Volume Laterality Blood specimen 12/05/2019 10:52 0 (specimen) PM EDT 10:59 PM EDT Resulting Agency Comment Spec In Lab Mandi Barrera MD HEMATOLOGY ORDERABLES Performing Organization Address City/State/[place] [address] Heparin (unfractionated) Level (12/05/2019 10:52 PM EDT) P athologist Signature Heparin UFH <0.04 IU/mL [facility] LABORATORY Comment: Guidelines for therapeutic unfractionate [...] Organization Address City/State/[place] [address] MRI Brain wwo Contrast [...] Electronically signed by: Merari Collins [facility] ([phone]), at 12/05/2019 10:02 PM Narrative 12/05/2019 10:02 [...] Electronically signed by: ALBA Jenkins [facility] ([phone]), at 12/05/2019 10:02 PM Paris Lagos MD IMG MRI ORDERABLES (ABNORMAL) Hemogram (12/05/2019 1:00 PM EDT) Analysis Performed At Patho logist Time Signature WBC 8.7 4.0 - 9.5 [facility] x10(3)/[facility] LABORATORY RBC 4.17 (L) 4.58 - [facility] 5.54 [facility] x10(6)/[facility] LABORATORY Hemoglobin 12.4 (L) 13.7 - [facility] 16[facility] gm/dL [facility] LABORATORY Hematocrit 37.0 (L) 40.5 [facility] % [facility] LABORATORY MCV 88.7 82.9 - [facility] 93.1 [facility] LABORATORY MCH 29.7 27.5 - [facility] 32.1 pg [facility] LABORATORY MCHC 33.5 32.0 - [facility] 35.7 gm/dL [facility] LABORATORY Platelets 173 145 - 357 [facility] x10(3)/[facility] LABORATORY RDWSD 47.3 (H) 36.0 - [facility] 45.0 [facility] LABORATORY RDWCV 14.6 (H) 11.4 - [facility] 13.8 % [facility] LABORATORY MPV 12.1 7.6 - 12.[facility] LABORATORY nRBC % Auto 0.0 % [facility] LABORATORY nRBC Abs Auto 0.000 0.000 - [facility] 0.000 [facility] x10(3)/[facility] LABORATORY Specimen Anatomical Collection Method Collection Time Receive d Time (Source) Location / / Volume Laterality Blood specimen 12/05/2019 1:00 PM 020 1:13 (specimen) EDT PM EDT Resulting Agency Comment Spec In Lab Gretchen Yoon MD HEMATOLOGY ORDERABLES Performing Organization Address City/State/[place] [address] EKG 12 Lead (12/05/2019 10:52 AM EDT) Component Value Ref Range Test Analysis Performed Pathologis t Method Time At Signature Ventricular rate 72 BPM MUSE SYSTEM Atrial Rate 72 BPM MUSE SYSTEM P-R Interval 138 ms MUSE SYSTEM QRS Duration 96 ms MUSE SYSTEM Q-T Interval 396 ms MUSE SYSTEM QTC Calculated 433 ms MUSE SYSTEM (Bezet) Calculated P [place] 65 degrees MUSE SYSTEM Calculated R [place] 13 degrees MUSE SYSTEM Calculated T [place] 0 degrees MUSE SYSTEM INTERPRETATION Sinus rhythm Occasional Premature ventricular complexe s MUSE SYSTEM Possible Inferior infarct (cited on or before 29-NOV-2019) Abnormal ECG When compared with ECG of 04-DEC-2019 10:43, Sinus rhythm has replaced Atrial fibrillation Vent. rate has decreased BY ??86 BPM Confirmed by MD Ceja Daniel ([id number]) on 12/05/2019 3:55:22 PM Specimen Anatomical Collection Method Collection Time Receive d Time (Source) Location / / Volume Laterality 12/05/2019 10:52 12/05/2019 3:55 AM EDT PM EDT Paris Lagos MD ECG ORDERABLES Performing Organization Address City/State/ZIP Code Phon e Number MUSE SYSTEM Duplex Study for DVT, Bilat legs (12/05/2019 7:00 AM EDT) Component Value Ref Test Analysis Performed At [facility] Range Method Time Signature VB Text Department: Vascular Surgery Lab VASCUBASE Report Patient: [id number] (ANGEL LUIS SALINAS) CPT: 97986 ICD10: I26.99 Referring Physician: GRETCHEN YOON ?? [...] athologist Signature Magnesium 0.87 0.69 - 1.07 [facility] mmol/L [facility] LABORATORY Specimen Anatomical Collection Method Collection Time Receive d Time (Source) Location / / Volume Laterality Blood specimen 12/05/2019 4:18 AM 020 4:31 (specimen) EDT AM EDT Resulting Agency Comment Spec In Lab Gretchen Yoon MD CHEMISTRY ORDERABLES Performing Organization Address City/[facility]/ZIP [facility] [place] [address] (ABNORMAL) BMP w/fasting Glucose (12/05/2019 4:18 AM EDT) P athologist Signature Glucose 104 (H) 65 - 99 [facility] Fasting mg/dL [facility] LABORATORY Comment: ?Fasting* Glucose Interpretive [...] of Diabetes Mellitus, Position Statement from the [place] [employer]. ??Diabete s Care, Volume 33, [...] of body mass or the acutely ill. [email or web address] VINITAnkf eGFR 84 >=60 mL/min/1.73 m?? [facility] LABORATORY Comment: The eGFR was calculated using the CKD-EP I equation. As with all creatinine based estimates of kidney function, eGFR values calculated with the CKD-EPI equation are not accurate in patients wi th acute kidney failure, extremes of body mass or the acutely ill. [email or web address] VINITAnkf Specimen Anatomical Collection Method Collection Time Receive d Time (Source) Location / / Volume Laterality Blood specimen 12/05/2019 4:18 AM 020 4:31 (specimen) EDT AM EDT Resulting Agency Comment Spec In Lab Gretchen Yoon MD CHEMISTRY ORDERABLES Performing Organization Address City/State/[place] [address] (ABNORMAL) Hemogram (12/05/2019 4:18 AM EDT) Analysis Performed At Patho logist Time Signature WBC 8.6 4.0 - 9.5 [facility] x10(3)/[facility] LABORATORY RBC 4.28 (L) 4.58 - [facility] 5.54 [facility] x10(6)/[facility] LABORATORY Hemoglobin 12.4 (L) 13.7 - [facility] 16.5 gm/dL [facility] LABORATORY Hematocrit 37.3 (L) 40.5 - [facility] 48.5 % [facility] LABORATORY MCV 87.1 82.9 - [facility] 93.1 [facility] LABORATORY MCH 29.0 27.5 - [facility] 32.1 pg [facility] LABORATORY MCHC 33.2 32.0 - [facility] 35.7 gm/dL [facility] LABORATORY Platelets 163 145 - 357 [facility] x10(3)/[facility] LABORATORY RDWSD 46.4 (H) 36.0 - [facility] 45.0 [facility] LABORATORY RDWCV 14.4 (H) 11.4 [facility] 13.8 % [facility] LABORATORY MPV 11.7 7.6 - 12.9 [facility] LABORATORY nRBC % Auto 0.0 % [facility] LABORATORY nRBC Abs Auto 0.000 0.000 - [facility] 0.000 [facility] x10(3)/[facility] LABORATORY Specimen Anatomical Collection Method Collection Time Receive d Time (Source) Location / / Volume Laterality Blood specimen 12/05/2019 4:18 AM 020 4:31 (specimen) EDT AM EDT Resulting Agency Comment Spec In Lab Gretchen Yoon MD HEMATOLOGY ORDERABLES Performing Organization Address City/State/[place] [address] Cardiac for Morphology [...] For questions regarding this report, please contact [facility] number below. ? Electronically signed by: Roselyn Luciano, [facility] ([phone]), at 12/04/2019 6:16 PM Narrative 12/04/2019 6:16 [...] from neck/greatest puja meter to back wall: [place] 91, CAU 13: ??19 mm CORTES ??1, [...] from neck/greatest puja meter to back wall: [place] 91, CAU 13: 19 mm CORTES 1, [...] WBC 8.9 4.0 - 9.5 [facility] x10(3)/[facility] LABORATORY RBC 4.69 4.58 - [facility] 5.54 [facility] x10(6)/[facility] LABORATORY Hemoglobin 13.5 (L) 13.7 - [place] 16.5 gm/dL [facility] LABORATORY Hematocrit 41.7 40.5 - [facility] 48.5 % [facility] LABORATORY MCV 88.9 82.9 - [place] 93.1 fL [facility] LABORATORY MCH 28.8 27.5 - [facility] 32.1 pg [facility] LABORATORY MCHC 32.4 32.0 - [facility] 35.7 gm/dL [facility] LABORATORY Platelets 196 145 - 357 [facility] x10(3)/[facility] LABORATORY RDWSD 46.7 (H) 36.0 - [facility] 45.0 [facility] LABORATORY RDWCV 14.5 (H) 11.4 - [facility] 13.8 % [facility] LABORATORY MPV 12.1 7.6 - 12.9 [facility] LABORATORY nRBC % Auto 0.0 % [facility] LABORATORY nRBC Abs Auto 0.000 0.000 - [place] [place] 0.000 [facility] x10(3)/[facility] LABORATORY Specimen Anatomical Collection Method Collection Time Receive d Time (Source) Location / / Volume Laterality Blood specimen 12/04/2019 12:55 0 1:06 (specimen) PM EDT PM EDT Resulting Agency Comment Spec In Lab Gretchen Yoon MD HEMATOLOGY ORDERABLES Performing Organization Address City/[facility]/[place] [address] EKG 12 Lead (12/04/2019 10:43 AM EDT) Component Value Ref Range Test Analysis Performed Pathologis t Method Time At Signature Ventricular rate 158 BPM MUSE SYSTEM Atrial Rate 102 BPM MUSE SYSTEM QRS Duration 92 ms MUSE SYSTEM Q-T Interval 294 ms MUSE SYSTEM QTC Calculated 476 ms MUSE SYSTEM (Bezet) Calculated R [place] 17 degrees MUSE SYSTEM Calculated T [place] 90 degrees MUSE SYSTEM INTERPRETATION Atrial fibrillation with rapid ventricular response MUSE SYSTEM Possible Inferior infarct (cited on or before 29-NOV-2019) Abnormal ECG When compared with ECG of 30-NOV-2019 21:07, Atrial fibrillation has replaced Sinus rhythm Vent. rate has increased BY ??65 BPM Confirmed by MD Brenna, Faustino ([id number]) on 12/05/2019 8:59:44 AM Specimen Anatomical Collection Method Collection Time Receive d Time (Source) Location / / Volume Laterality 12/04/2019 10:43 12/05/2019 8:59 AM EDT AM EDT Gretchen Yoon MD ECG ORDERABLES Performing Organization Address City/State/ZIP Code Phon e Number MUSE SYSTEM (ABNORMAL) Magnesium (12/04/2019 4:28 AM EDT) P athologist Signature Magnesium 1.17 (H) 0.69 - 1.07 [facility] mmol/L [facility] Specimen Anatomical Collection Method Collection Time Receive d Time (Source) Location / / Volume Laterality Blood specimen 12/04/2019 4:28 AM 020 4:40 (specimen) EDT AM EDT Resulting Agency Comment Spec In Lab Gretchen Yoon MD CHEMISTRY ORDERABLES Performing Organization Address City/State/[place] [address] (ABNORMAL) BMP w/fasting Glucose (12/04/2019 4:28 AM EDT) athologist Signature Glucose 108 (H) 65 - 99 [facility] Fasting mg/dL [facility] Comment: ?Fasting* Glucose Interpretive [...] of Diabetes Mellitus, Position Statement from the [place] [employer]. ??Diabete s Care, Volume 33, [...] of body mass or the acutely ill. [email or web address] VINITAnkf eGFR 98 >=60 mL/min/1.73 m?? [facility] Comment: The eGFR was calculated using the CKD-EP I equation. As with all creatinine based estimates of kidney function, eGFR values calculated with the CKD-EPI equation are not accurate in patients wi th acute kidney failure, extremes of body mass or the acutely ill. [email or web address] VINITAnkf Specimen Anatomical Collection Method Collection Time Receive d Time (Source) Location / / Volume Laterality Blood specimen 12/04/2019 4:28 AM 020 4:40 (specimen) EDT AM EDT Resulting Agency Comment Spec In Lab Gretchen Yoon MD CHEMISTRY ORDERABLES Performing Organization Address City/State/[place] [address] (ABNORMAL) Hemogram (12/04/2019 4:28 AM EDT) Analysis Performed At Patho logist Time Signature WBC 7.8 4.0 - 9.5 [facility] x10(3)/[facility] LABORATORY RBC 4.10 (L) 4.58 - [facility] 5.54 [facility] x10(6)/[facility] LABORATORY Hemoglobin 12.0 (L) 13.7 - [facility] 16.5 gm/dL [facility] Hematocrit 36.5 (L) 40.5 - [facility] 48.5 % [facility] MCV 89.0 82.[address] [facility] fL [facility] MCH 29.3 27.5 - MELINA MONAE 32.1 pg [facility] MCHC 32.9 32.0 - MELINA MONAE 35.7 gm/dL [facility] Platelets 151 145 - 357 MELINA VILLANUEVACK x10(3)/[facility] LABORATORY RDWSD 46.9 (H) 36.0 - MEL[place] MONAE 45.0 [facility] LABORATORY RDWCV 14.4 (H) 11.4 - M[place] MONAE 13.8 % [facility] MPV 12.2 7.6 - 12.9 MELINA MONAE fL [facility] nRBC % Auto 0.0 % [facility] nRBC Abs Auto 0.000 0.000 - MELINA MONAE 0.000 [facility] x10(3)/[facility] LABORATORY Specimen Anatomical Collection Method Collection Time Receive d Time (Source) Location / / Volume Laterality Blood specimen 12/04/2019 4:28 AM 020 4:40 (specimen) EDT AM EDT Resulting Agency Comment Spec In Lab Gretchen Yoon MD HEMATOLOGY ORDERABLES Performing Organization Address City/[facility]/ZIP Code Phon e Number [address] Potassium (12/03/2019 7:55 PM EDT) athologist Signature Potassium 3.9 3.5 - 5.0 [facility]/L [facility] Comment: Please note: ??Patients [...] Yoon MD CHEMISTRY ORDERABLES Performing Organization Address City/[facility]/ZIP [facility] Phon e Number [address] Potassium (12/03/2019 1:57 PM EDT) athologist Signature Potassium 3.7 3.5 - 5.0 [facility] mmol/L [facility] Comment: Please note: ??Patients [...] Organization Address City/State/[place] [address] (ABNORMAL) Hemogram (12/03/2019 1:57 PM EDT) Analysis Performed At Patho logist Time Signature WBC 8.8 4.0 - 9.5 MELINA DOV x10(3)/[facility] LABORATORY RBC 4.27 (L) 4.58 - M[place] DOV 5.54 [facility] x10(6)/[facility] LABORATORY Hemoglobin 12.5 (L) 13.7 - M[place] DOV 16.5 gm/dL [facility] Hematocrit 37.5 (L) 40.5 - M[place]INA DOV 48.5 % [facility] MCV 87.8 82.9 - M[place] DOV 93.1 [facility] LABORATORY MCH 29.3 27.5 - M[place] DOV 32.1 pg [facility] MCHC 33.3 32.0 - [place] DOV 35.7 gm/dL [facility] Platelets 158 145 - 357 MELINA DOV x10(3)/[facility] LABORATORY RDWSD 46.9 (H) 36.0 - M[place]INA DOV 45.0 [facility] LABORATORY RDWCV 14.5 (H) 11.4 - M[place]INA DOV 13.8 % [facility] MPV 12.2 7.6 - 12.9 MELINA DOV [facility] LABORATORY nRBC % Auto 0.0 % [facility] nRBC Abs Auto 0.000 0.000 - [facility] 0.000 [facility] x10(3)/[facility] LABORATORY Specimen Anatomical Collection Method Collection Time Receive d Time (Source) Location / / Volume Laterality Blood specimen 12/03/2019 1:57 PM 020 2:21 (specimen) EDT PM EDT Resulting Agency Comment Spec In Lab Gretchen Yoon MD HEMATOLOGY ORDERABLES Performing Organization Address City/State/ZIP Code Phon e Number [address] Magnesium (12/03/2019 4:02 AM EDT) P athologist Signature Magnesium 0.79 0.69 - 1.07 [facility] mmol/L [facility] Specimen Anatomical Collection Method Collection Time Receive d Time (Source) Location / / Volume Laterality Blood specimen 12/03/2019 4:02 AM 020 4:16 (specimen) EDT AM EDT Resulting Agency Comment Spec In Lab Gretchen Yoon MD CHEMISTRY ORDERABLES Performing Organization Address City/State/[place] [address] (ABNORMAL) BMP w/fasting Glucose (12/03/2019 4:02 AM EDT) P athologist Signature Glucose 100 (H) 65 - 99 [facility] Fasting mg/dL [facility] Comment: ?Fasting* Glucose Interpretive [...] of Diabetes Mellitus, Position Statement from the [place] [employer]. ??Diabete s Care, Volume 33, [...] of body mass or the acutely ill. [email or web address] VINITAnkf eGFR 92 >=60 mL/min/1.73 m?? [facility] Comment: The eGFR was calculated using the CKD-EP I equation. As with all creatinine based estimates of kidney function, eGFR values calculated with the CKD-EPI equation are not accurate in patients wi th acute kidney failure, extremes of body mass or the acutely ill. [email or web address] Specimen Anatomical Collection Method Collection Time Receive d Time (Source) Location / / Volume Laterality Blood specimen 12/03/2019 4:02 AM 020 4:16 (specimen) EDT AM EDT Resulting Agency Comment Spec In Lab Gretchen Yoon MD CHEMISTRY ORDERABLES Performing Organization Address City/State/[place] [address] (ABNORMAL) Hemogram (12/03/2019 4:02 AM EDT) Analysis Performed At Patho logist Time Signature WBC 9.1 4.0 - 9.5 [facility] x10(3)/[facility] LABORATORY RBC 4.01 (L) 4.58 - MELINA MARSHDOV 5.54 [facility] x10(6)/[facility] LABORATORY Hemoglobin 11.8 (L) 13.7 - [facility] 16.5 gm/dL [facility] Hematocrit 35.6 (L) 40.5 - [facility] 48.5 % [facility] MCV 88.8 82.9 - [facility] 93.1 [facility]ATORY MCH 29.4 27.5 - [facility] 32.1 pg [facility] MCHC 33.1 32.0 [facility] 35.7 gm/dL [facility] Platelets 130 (L) 145 - 357 [facility] x10(3)/[facility] LABORATORY RDWSD 46.6 (H) 36.0 - [facility] 45.0 [facility] LABORATORY RDWCV 14.4 (H) 11.4 - [facility] 13.8 % [facility] MPV 12.4 7.6 - 12.9 [facility] LABORATORY nRBC % Auto 0.0 % [facility] nRBC Abs Auto 0.000 0.000 [facility] x10(3)/[facility] LABORATORY Specimen Anatomical Collection Method Collection Time Receive d Time (Source) Location / / Volume Laterality Blood specimen 12/03/2019 4:02 AM 020 4:16 (specimen) EDT AM EDT Resulting Agency Comment Spec In Lab Gretchen Yoon MD HEMATOLOGY ORDERABLES Performing Organization Address City/State/[place] [address] XR Chest One View [...] Signature WBC 10.6 (H) 4.0 - 9.5 [facility] x[facility](3[facility] LABORATORY RBC 4.00 (L) 4.58 - [facility] DOV 5.54 [facility] x10(6)/[facility] LABORATORY Hemoglobin 11.9 (L) 13.7 - [facility] 16.5 gm/dL [facility] Hematocrit 35.7 (L) 40.5 - [facility] 48.5 % [facility] MCV 89.3 82.9 - [facility] 93.1 [facility] LABORATORY MCH 29.8 27.5 - [facility] 32.1 pg [facility] MCHC 33.3 32.0 [facility] 35.7 gm/dL [facility] Platelets 120 (L) 145 - 357 [facility] x10(3)/[facility] LABORATORY RDWSD 47.5 (H) 36.0 - [facility] 45.0 [facility] LABORATORY RDWCV 14.6 (H) 11.4 [facility] 13.8 % [facility] MPV 12.0 7.6 - 12.9 [facility] LABORATORY nRBC % Auto 0.0 % [facility] nRBC Abs Auto 0.000 0.000 - [facility] 0.000 [facility] x10(3)/[facility] LABORATORY Specimen Anatomical Collection Method Collection Time Receive d Time (Source) Location / / Volume Laterality Blood specimen 12/02/2019 12:50 0 1:22 (specimen) PM EDT PM EDT Resulting Agency Comment Spec In Lab Gretchen Yoon MD HEMATOLOGY ORDERABLES Performing Organization Address City/State/[place] [address] Blue Tube HOLD (12/02/2019 4:55 AM EDT) P athologist Signature Blue Hold Sample in [facility] lab. [facility] Specimen Anatomical Collection Method Collection Time Receive d Time (Source) Location / / Volume Laterality Blood specimen Venous Draw / 12/02/2019 4:55 AM 2019 5:03 (specimen) Unknown EDT AM EDT Darrell Glasgow MD HEMATOLOGY ORDERABLES Performing Organization Address City/State/ZIP Code Phon e Number [address] Magnesium (12/02/2019 4:55 AM EDT) athologist Signature Magnesium 0.85 0.69 - 1.07 [facility] mmol/L [facility] Specimen Anatomical Collection Method Collection Time Receive d Time (Source) Location / / Volume Laterality Blood specimen 12/02/2019 4:55 AM 020 5:02 (specimen) EDT AM EDT Resulting Agency Comment Spec In Lab Gretchen Yoon MD CHEMISTRY ORDERABLES Performing Organization Address City/State/[place] [address] (ABNORMAL) BMP w/fasting Glucose (12/02/2019 4:55 AM EDT) athologist Signature Glucose 114 (H) 65 - 99 [facility] Fasting mg/dL [facility] Comment: ?Fasting* Glucose Interpretive [...] of Diabetes Mellitus, Position Statement from the [place] [employer]. ??Diabete s Care, Volume 33, [...] of body mass or the acutely ill. [email or web address] VINITAnkf eGFR 94 >=60 mL/min/1.73 m?? [facility] Comment: The eGFR was calculated using the CKD-EP I equation. As with all creatinine based estimates of kidney function, eGFR values calculated with the CKD-EPI equation are not accurate in patients wi th acute kidney failure, extremes of body mass or the acutely ill. [email or web address] Specimen Anatomical Collection Method Collection Time Receive d Time (Source) Location / / Volume Laterality Blood specimen 12/02/2019 4:55 AM 020 5:02 (specimen) EDT AM EDT Resulting Agency Comment Spec In Lab Gretchen Yoon MD CHEMISTRY ORDERABLES Performing Organization Address City/State/[place] [address] (ABNORMAL) Hemogram (12/02/2019 4:55 AM EDT) Analysis Performed At Patho logist Time Signature WBC 9.3 4.0 - 9.5 [facility] x10(3)/[facility] LABORATORY RBC 3.71 (L) 4.58 - [place] DOV 5.54 [facility] x10(6)/[facility] LABORATORY Hemoglobin 10.8 (L) 13.7 - [facility] 16.5 gm/dL [facility] Hematocrit 33.1 (L) 40.5 - [facility] 48.5 % [facility] MCV 89.2 82.9 - [facility] 93.1 [facility]ATORY MCH 29.1 27.5 - [facility] 32.1 pg [facility] MCHC 32.6 32.0 - [facility] 35.7 gm/dL [facility] Platelets 93 (L) 145 - 357 [facility] x10(3)/[facility] LABORATORY RDWSD 47.1 (H) 36.0 - [facility] 45.0 [facility] LABORATORY RDWCV 14.6 (H) 11.4 - [facility] 13.8 % [facility] MPV 11.7 7.6 - 12.9 [facility] LABORATORY nRBC % Auto 0.0 % [facility] nRBC Abs Auto 0.000 0.000 [facility] x10(3)/[facility] LABORATORY Specimen Anatomical Collection Method Collection Time Receive d Time (Source) Location / / Volume Laterality Blood specimen 12/02/2019 4:55 AM 020 5:02 (specimen) EDT AM EDT Resulting Agency Comment Spec In Lab Gretchen Yoon MD HEMATOLOGY ORDERABLES Performing Organization Address City/State/[place] [address] Transfuse 1 unit platelets, [...] For questions regarding this report, please contact [facility] number below. ? Electronically signed by: Angel Luis Barboza MD, [facility] ([phone]), at 12/01/2019 8:02 PM Narrative 12/01/2019 8:02 [...] For questions regarding this report, please contact [facility] number below. Electronically signed by: Angel Luis Barboza MD, [facility] ([phone]), at 12/01/2019 8:02 PM Gretchen Yoon MD IMG MRI ORDERABLES Prepare Platelets, Apheresis (12/01/2019 6:20 PM EDT) P athologist Signature Dispensed? Yes [facility] Specimen Anatomical Collection Method Collection Time Receive d Time (Source) Location / / Volume Laterality Blood specimen 12/01/2019 6:20 PM 020 6:18 (specimen) EDT PM EDT Gretchen Yoon MD BLOOD BANK ORDERABLES Performing Organization Address City/[facility]/[place] [address] Duplex for DVT, Arm, Unilat (12/01/2019 5:08 PM EDT) Component Value Ref Test Analysis Performed At Patholo gist Range Method Time Signature VB Text Department: Vascular Surgery Lab VASCUBASE Report Patient: [id number] (ANGEL LUIS SALINAS) CPT: 33165 ICD10: R60.0 Referring Physician: GRETCHEN YOON ?? [...] For questions regarding this report, please contact [facility] number below. ? Electronically signed by: Merari Collins, [facility] ([phone]), at 12/01/2019 3:53 PM Narrative 12/01/2019 3:53 PM EDT EXAMINATION: CT HEAD WO CONTRAST (GENERIC) CLINICAL HISTORY: Headache, intracranial hemorrhage suspected Serial CT scan: please assess for propag ation of known ICH noted on prior Head CT/imaging. TECHNIQUE: CT head performed without intravenous co ntrast administration. COMPARISON: Head CT 11/30/2019. CT angiogram of the [facility] [place] 11/01. FINDINGS: Ventricles are normal in size. Basal cis terns are patent. Unchanged hyperdense 2.3 x 0.7 x 0.6 cm tubular hemorrhage projecting along the course of the left optic tract (axial se [facility] 2 image 16), consistent with intraparenchymal [...] Head CT 11/30/2019. CT angiogram of the [facility] [place] 11/01. FINDINGS: Ventricles are normal [...] Scan, Peripheral Blood (12/01/2019 12:51 PM EDT) [facility] Method Time Signature Plat Estimate Decreased [facility] RBC Morphology Normal [facility] Giant Less than 1 /HPF [facility] Platelets [facility] Specimen Anatomical Collection Method Collection Time Receive d Time (Source) Location / / Volume Laterality Blood specimen 12/01/2019 12:51 0 1:05 (specimen) PM EDT PM EDT Resulting Agency Comment Spec In Lab Riki Stevens MD HEMATOLOGY ORDERABLES Performing Organization Address City/State/[place] [address] (ABNORMAL) Differential, Automated (12/01/2019 12:51 PM EDT) [facility] Method Time Signature Neutrophils % 74.9 % [facility] Neutr Abs (ANC) 6.34 (H) 1.70 - [facility] 6.10 [facility] x10(3)/[facility] LABORATORY Lymphocytes % 11.4 % [facility] Lymphocytes Abs 1.0 0.9 - 3.2 [facility] x10(3)/[facility] LABORATORY Monocytes % 12.4 % [facility] Monocyte Abs 1.0 (H) 0.3 - 0.9 [facility] x10(3)/[facility] LABORATORY Eosinophils % 0.4 % [facility] Eosinophils Abs 0.0 0.0 - 0.4 [facility] x10(3)/[facility] LABORATORY Basophils % 0.4 % [facility] Basophils Abs 0.0 0.0 - 0.1 [facility] x10(3)/[facility] LABORATORY Immature Gran % 0.50 % [...] Pita Gran Abs 0.04 0.00 - 0.04 x10(3)/[facility] Specimen Anatomical Collection Method Collection Time Receive d Time (Source) Location / / Volume Laterality Blood specimen 12/01/2019 12:51 0 1:05 (specimen) PM EDT PM EDT Resulting Agency Comment Spec In Lab Riki Stevens MD HEMATOLOGY ORDERABLES Performing Organization Address City/State/ZIP Code Phon e Number [place] [id number] (ABNORMAL) Hemogram (12/01/2019 12:51 PM EDT) Analysis Performed At Patho logist Time Signature WBC 8.4 4.0 - 9.5 [facility] LABORATORY RBC 3.69 (L) 4.58 - [facility] 5.54 [facility] x10(6)/[facility] LABORATORY Hemoglobin 10.8 (L) 13.7 - [facility] 16.5 gm/dL [facility] Hematocrit 32.4 (L) 40.5 - [facility] 48.5 % [facility] MCV 87.8 82.9 - [facility] 93.1 [facility] LABORATORY MCH 29.3 27.5 - M[place]INA DOV 32.1 pg [facility] MCHC 33.3 32.0 - [facility] DOV 35.7 gm/dL [facility] Platelets 72 (L) 145 - 357 [facility] x[facility](3[facility] LABORATORY RDWSD 47.2 (H) 36.0 - [facility] 45.0 [facility] LABORATORY RDWCV 14.6 (H) 11.4 - [facility] DOV 13.8 % [facility] MPV 12.2 7.6 - 12.9 [facility] LABORATORY nRBC % Auto 0.0 % [facility] nRBC Abs Auto 0.000 0.000 - [facility] 0.000 [facility] x10(3)/[facility] LABORATORY Specimen Anatomical Collection Method Collection Time Receive d Time (Source) Location / / Volume Laterality Blood specimen 12/01/2019 12:51 0 1:05 (specimen) PM EDT PM EDT Resulting Agency Comment Spec In Lab Riki Stevens MD HEMATOLOGY ORDERABLES Performing Organization Address City/State/ZIP Code Phon e Number [address] (ABNORMAL) Coox2 (12/01/2019 11:42 AM EDT) Analysis Performed At Patho logist Time Signature pO2 Coox 30 mmHg [facility] Hgb Blood Gas 11.6 (L) 13.7 - [facility] 16.5 gm/dL [facility] O2HB Coox 60.8 % [facility] COHB Coox 0.6 % [facility] Comment: Nonsmokers: 0.5-1.5% COHB Smokers: Variable, but usually less than 10% Toxic: 20-30% COHB Lethal: Greater than 60% COHB METHB Coox 0.6 <=1.5 % [facility] Source Coox Mixed Venous [facility] Specimen Anatomical Collection Method Collection Time Receive d Time (Source) Location / / Volume Laterality Blood specimen 12/01/2019 11:42 0 (specimen) AM EDT 11:42 AM EDT Gretchen Yoon MD CHEMISTRY ORDERABLES Performing Organization Address City/State/[place] [address] Sedimentation rate (12/01/2019 3:55 AM EDT) P athologist Signature Sed Rate 25 3 - 46 [facility] mm/hr [facility] Comment: Effective June 11, [...] Winn MD HEMATOLOGY ORDERABLES Performing Organization Address City/[facility]/[place] [address] (ABNORMAL) CRP, acute inflammation [...] Winn MD CHEMISTRY ORDERABLES Performing Organization Address City/[facility]/ZIP Code Phon e Number [address] ABORH Recheck Status (12/01/2019 3:55 AM EDT) [facility] Method Time Signature ABORH Recheck Order Placed [facility] LABORATORY ABORH Type Complete [facility] LABORATORY Specimen Anatomical Collection Method Collection Time Receive d Time (Source) Location / / Volume Laterality Blood specimen 12/01/2019 3:55 AM 020 4:15 (specimen) EDT AM EDT Resulting Agency Comment Spec In Lab Lewis Gee MD BLOOD BANK ORDERABLES Performing Organization Address City/[facility]/[place] [address] Antibody screen (12/01/2019 3:55 AM EDT) Patholo gist Method Time Signature Ab Screen Negative [facility] LABORATORY Expires at 12/04/2019 [facility] [id number] on: [facility] Specimen Anatomical Collection Method Collection Time Receive d Time (Source) Location / / Volume Laterality Blood specimen 12/01/2019 3:55 AM 020 4:15 (specimen) EDT AM EDT Resulting Agency Comment Spec In Lab Lewis Gee MD BLOOD BANK ORDERABLES Performing Organization Address City/State/[place] [address] ABO/Rh Typing (12/01/2019 3:55 AM EDT) athologist Signature ABORh Type AB Pos [facility] Specimen Anatomical Collection Method Collection Time Receive d Time (Source) Location / / Volume Laterality Blood specimen 12/01/2019 3:55 AM 020 4:15 (specimen) EDT AM EDT Resulting Agency Comment Spec In Lab Lewis Gee MD BLOOD BANK ORDERABLES Performing Organization Address City/[facility] [place] [address] (ABNORMAL) Troponin (12/01/2019 3:55 AM EDT) athologist Signature Troponin-T 4.35 (H) 0.00 - [facility] 0.00 ng/mL [facility] Comment: result rechecked-slw The 99th percentile for Troponin T is le ss than 0.01 ng/mL, any detectable cTnT concentration using this assay should be considered elevated. According to the third universal definit ion of myocardial infarction the following criteria with a clinical prese ntation consistent with acute myocardial ischemia meets the diagnosis for a myocardial infarction (IN). Detection of a rise and/or fall of [...] additional sample may be indicated. Reference: Third Lamar Definition of Myocardial Infarction. Journal of the [place] [employer] 2012;60:1581-98 Specimen Anatomical Collection Method Collection Time Receive d Time (Source) Location / / Volume Laterality Blood specimen 12/01/2019 3:55 AM 020 4:00 (specimen) EDT AM EDT Resulting Agency Comment Spec In Lab Gretchen Yoon MD CHEMISTRY ORDERABLES Performing Organization Address City/State/ZIP Code Phon e Number [address] Magnesium (12/01/2019 3:55 AM EDT) P athologist Signature Magnesium 0.96 0.69 - 1.07 [facility] mmol/L [facility] Specimen Anatomical Collection Method Collection Time Receive d Time (Source) Location / / Volume Laterality Blood specimen 12/01/2019 3:55 AM 020 4:00 (specimen) EDT AM EDT Resulting Agency Comment Spec In Lab Gretchen Yoon MD CHEMISTRY ORDERABLES Performing Organization Address City/[facility]/[place] [address] (ABNORMAL) BMP w/fasting Glucose (12/01/2019 3:55 AM EDT) P athologist Signature Glucose 148 (H) 65 - 99 [facility] Fasting mg/dL [facility] Comment: ?Fasting* Glucose Interpretive [...] of Diabetes Mellitus, Position Statement from the [place] [employer]. ??Diabete s Care, Volume 33, [...] of body mass or the acutely ill. [email or web address]INITAnkf eGFR 91 >=60 mL/min/1.73 m?? [facility] Comment: The eGFR was calculated using the CKD-EP I equation. As with all creatinine based estimates of kidney function, eGFR values calculated with the CKD-EPI equation are not accurate in patients wi th acute kidney failure, extremes of body mass or the acutely ill. [email or web address] Specimen Anatomical Collection Method Collection Time Receive d Time (Source) Location / / Volume Laterality Blood specimen 12/01/2019 3:55 AM 020 4:00 (specimen) EDT AM EDT Resulting Agency Comment Spec In Lab Gretchen Yoon MD CHEMISTRY ORDERABLES Performing Organization Address City/State/[place] [address] (ABNORMAL) Hemogram (12/01/2019 3:55 AM EDT) Analysis Performed At Patho [facility] Time Signature WBC 11.0 (H) 4.0 - 9.5 [facility] x10(3)/[facility] LABORATORY RBC 3.46 (L) 4.58 - [facility] 5.54 [facility] x10(6)/[facility] LABORATORY Hemoglobin 10.2 (L) 13.7 - [facility] 16.5 gm/dL [facility] Hematocrit 31.2 (L) 40.5 - [facility] 48.5 % [facility] M[facility] 90.2 82.[facility] LAB[facility]ATORY MCH 29.5 27.5 - [facility] 32.1 pg [facility] MCHC 32.7 32.0 [facility] 35.7 gm/dL [facility] Platelets 98 (L) 145 - 357 [facility] x10(3)/[facility] LABORATORY RDWSD 47.9 (H) 36.0 - [facility] 45.0 [facility] LABORATORY RDWCV 14.6 (H) 11.4 - [facility] 13.8 % [facility] MPV 12.3 7.6 - 12.9 [facility] LABORATORY nRBC % Auto 0.0 % [facility] LABORATORY nRBC Abs Auto 0.000 0.000 - [facility] 0.000 [facility] x10(3)/[facility] LABORATORY Specimen Anatomical Collection Method Collection Time Receive d Time (Source) Location / / Volume Laterality Blood specimen 12/01/2019 3:55 AM 020 4:00 (specimen) EDT AM EDT Resulting Agency Comment Spec In Lab Gretchen Yoon MD HEMATOLOGY ORDERABLES Performing Organization Address City/State/[place] [address] (ABNORMAL) BLOOD GAS 2 ARTERIAL (11/30/2019 10:39 PM EDT) Analysis Performed At [facility] Time Signature pH Art 7.45 7.35 - [facility] 7.45 [facility] pCO2 Art 23 (L) 35 - 45 [facility] LABORATORY pO2 Art 76 (L) 85 - 104 [facility] LABORATORY HCO3 Art 15.3 (L) 20.0 - [facility] 26.0 [facility] mmol/[facility] LABORATORY BE Art -8.7 (L) -3.0 - 3.0 [facility] mmol/L [facility] Hgb Blood Gas 11.7 (L) 13.7 - [facility] 16.5 gm/dL [facility] O2HB Art 94.2 94.0 - [facility] 97.0 % [facility] COHB Art 0.5 % [facility] Comment: Nonsmokers: 0.5-1.5% COHB Smokers: Variable, but usually less than 10% Toxic: 20-30% COHB Lethal: Greater than 60% COHB METHB Art 0.6 <=1.5 % [facility] LABORATORY Na Whole Blood 133 (L) 135 - 145 mmol/L [facility] LABORATORY K Whole Blood 3.8 3.5 - 5.0 mmol/L [facility] LABORATORY Comment: Please note: Patients [...] Blood 109 (H) 98 - 107 mmol/L [facility] LABORATORY Gluc Whole Bld 120 65 - 199 mg/dL [facility] Comment: Diabetes: >=200 mg/dL plus symp toms. Lactate WB 0.8 0.5 - 2.2 mmol/L [facility] LABORATORY FIO2 Art 100 % [facility] PF Ratio Art 76 [facility] LABOR[facility] Specimen Anatomical Collection Method Collection Time Receive d Time (Source) Location / / Volume Laterality Blood specimen 11/30/2019 10:39 0 (specimen) PM EDT 10:39 PM EDT Gretchen Yoon MD CHEMISTRY ORDERABLES Performing Organization Address City/State/[place] [address] EKG 12 Lead (11/30/2019 [...] (Bezet) Calculated P 12 degrees MUSE SYSTEM [place] Calculated R 19 degrees MUSE SYSTEM [place] Calculated T -47 degrees MUSE SYSTEM [place] INTERPRETATION Sinus rhythm with Premature supraventricular complexes [...] Yoon MD ECG ORDERABLES Performing Organization Address City/[facility]/ZIP Code Phon e Number MUSE SYSTEM (ABNORMAL) Urinalysis Microscopic Exam (11/30/2019 8:40 PM EDT) P athologist Signature RBC UA 27 (H) 0 - 3 /HPF [facility] WBC UA 4 (H) 0 - 3 /HPF [facility] Hyaline Cast 3 (H) 0 - 2 /LPF [facility] LABORATORY Specimen (Source) Anatomical Collection Method Collection Time Re ceived Time Location / / Volume Laterality Urine specimen 11/30/2019 8:40 11/30/2019 obtained via PM EDT 10:51 PM EDT indwelling urinary catheter (specimen) Resulting Agency Comment Spec In Lab Rossy Winn MD URINE ORDERABLES Performing Organization Address City/[facility]/ZIP Code Phon e Number [place] [id number] (ABNORMAL) Urinalysis with reflex Culture (11/30/2019 8:40 PM EDT) Patholo gist Method Time Signature Glucose UA Negative Negative [facility] mg/dL [facility] Protein UA Negative Negative [facility] mg/dL [facility] Bilirubin UA Negative Negative [facility] mg/dL [facility] Comment: Clinical correlation required for positi ve Urine Bilirubin results as false positive may occur with some drugs and d rug related products. If a false positive is suspected a serum total bili morales should be considered if clinically indicated. Urobilinogen UA Normal Normal mg/dL [facility] pH UA 5.5 5.0 - 8.0 [facility] Blood UA Moderate (A) Negative mg/dL [facility] Ketones UA 40 (A) Negative mg/dL [facility] Nitrite UA Negative Negative [facility] Leukocytes UA Trace (A) Negative [facility] LABORATORY Appearance UA Clear Clear [facility] Spec [place] UA 1.026 1.006 - 1.030 [facility] Color UA Yellow Yellow [facility] Culture Reflexed No [facility] Specimen (Source) Anatomical Collection Method Collection Time Re ceived Time Location / / Volume Laterality Urine specimen 11/30/2019 8:40 11/30/2019 obtained via PM EDT 10:51 PM EDT indwelling urinary catheter (specimen) Resulting Agency Comment Spec In Lab Gretchen Yoon MD URINE ORDERABLES Performing Organization Address City/State/[place] [address] (ABNORMAL) pro-Brain Natriuretic Peptide (11/30/2019 8:30 PM EDT) P athologist Signature ProBNP 2,802 (H) <=125 [facility] pg/mL [facility] Specimen Anatomical Collection Method Collection Time Receive d Time (Source) Location / / Volume Laterality Blood specimen Venous Draw / 11/30/2019 8:30 PM 2019 8:36 (specimen) Unknown EDT PM EDT Resulting Agency Comment Spec In Lab Rossy Winn MD CHEMISTRY ORDERABLES Performing Organization Address City/State/ZIP Code Phon e Number [place] [id number] (ABNORMAL) Troponin (11/30/2019 8:30 PM EDT) athologist Signature Troponin-T 5.04 (H) 0.00 - MELINA MONAE 0.00 ng/mL [facility] Comment: The 99th percentile for Troponin T is le ss than 0.01 ng/mL, any detectable cTnT concentration using this assay should be considered elevated. According to the third universal definit ion of myocardial infarction the following criteria with a clinical prese ntation consistent with acute myocardial ischemia meets the diagnosis for a myocardial infarction (IN). Detection of a rise and/or fall of [...] additional sample may be indicated. Reference: Third Lamar Definition of Myocardial Infarction. Journal of the [employer] College [employer] 2012;60:1581-98 Specimen Anatomical Collection Method Collection Time Receive d Time (Source) Location / / Volume Laterality Blood specimen Venous Draw / 11/30/2019 8:30 PM 2019 8:36 (specimen) Unknown EDT PM EDT Resulting Agency Comment Spec In Lab Rossy Winn MD CHEMISTRY ORDERABLES Performing Organization Address City/State/[place] [address] Magnesium (11/30/2019 8:30 PM EDT) athologist Signature Magnesium 0.79 0.69 - 1.07 [facility]L [facility] Specimen Anatomical Collection Method Collection Time Receive d Time (Source) Location / / Volume Laterality Blood specimen 11/30/2019 8:30 PM 020 8:35 (specimen) EDT PM EDT Resulting Agency Comment Spec In Lab Gretchen Yoon MD CHEMISTRY ORDERABLES Performing Organization Address City/State/[place] [address] (ABNORMAL) Basic Metabolic Panel (non-fasting) (11/30/2019 8:30 PM EDT) athologist Signature Glucose Lvl 132 65 - 199 [facility] mg/dL [facility] Comment: Diabetes: >=200 mg/dL [...] of body mass or the acutely ill. [email or web address] eGFR 93 >=60 mL/min/1.73 m?? [facility] Comment: The eGFR was calculated using the CKD-EP I equation. As with all creatinine based estimates of kidney function, eGFR values calculated with the CKD-EPI equation are not accurate in patients wi th acute kidney failure, extremes of body mass or the acutely ill. [email or web address] Specimen Anatomical Collection Method Collection Time Receive d Time (Source) Location / / Volume Laterality Blood specimen 11/30/2019 8:30 PM 020 8:35 (specimen) EDT PM EDT Resulting Agency Comment Spec In Lab Gretchen Yoon MD CHEMISTRY ORDERABLES Performing Organization Address [facility] Phon e Number [address] Blood culture (11/30/2019 8:30 PM EDT) Patholo gist Method Time Signature Blood Culture No growth MELINA MONAE at 5 days. [facility] Specimen Anatomical Collection Method Collection Time Receive d Time (Source) Location / / Volume Laterality Blood specimen 11/30/2019 8:30 PM 020 9:40 (specimen) EDT PM EDT Comment: L HAND Resulting Agency Comment Spec In Lab Gretchen Yoon MD MICROBIOLOGY - BLOOD ORDERAB LES Performing Organization Address City/[facility] [place] [address] Blood culture (11/30/2019 8:30 PM EDT) Patholo gist Method Time Signature Blood Culture No growth MELINA MONAE at 5 days. [facility] Specimen Anatomical Collection Method Collection Time Receive d Time (Source) Location / / Volume Laterality Blood specimen 11/30/2019 8:30 PM 020 9:40 (specimen) EDT PM EDT Comment: R HAND Resulting Agency Comment Spec In Lab Gretchen Yoon MD MICROBIOLOGY - BLOOD ORDERAB LES Performing Organization Address [facility] Phon e Number [address] XR Chest One View [...] Electronically signed by: ALBA Watson [facility] ([phone]), at 11/30/2019 8:32 PM Narrative 11/30/2019 8:32 [...] Time Signature pH Art 7.45 7.35 - [facility] 7.45 [facility] pCO2 Art 27 (L) 35 - 45 [facility] mmHg [facility] pO2 Art 68 (L) 85 - 104 [facility] LABORATORY HCO3 Art 18.2 (L) 20.0 - [facility] 26.0 [facility] mmol/[facility] LABORATORY BE Art -5.9 (L) -3.0 - 3.0 [facility] mmol/L [facility] Hgb Blood Gas 12.4 (L) 13.7 - [facility] 16.5 gm/dL [facility] O2HB Art 93.1 (L) 94.0 - [facility] 97.0 % [facility] COHB Art 0.8 % [facility] Comment: Nonsmokers: 0.5-1.5% COHB Smokers: Variable, but usually less than 10% Toxic: 20-30% COHB Lethal: Greater than 60% COHB METHB Art 0.4 <=1.5 % [facility] Na Whole Blood 133 (L) 135 - 145 mmol/L [facility]OR[facility] K Whole Blood 3.6 3.5 - 5.0 mmol/L [facility] LAB[facility]ORY Comment: Please note: Patients [...] Blood 108 (H) 98 - 107 mmol/L [facility] LABORATORY Gluc Whole Bld 121 65 - 199 mg/dL [facility] Comment: Diabetes: >=200 mg/dL plus symp toms. Lactate WB 1.2 0.5 - 2.2 mmol/L [facility] LABORATORY Flow Art 5.0 LPM [facility] Specimen Anatomical Collection Method Collection Time Receive d Time (Source) Location / / Volume Laterality Blood specimen 11/30/2019 8:09 PM 020 8:09 (specimen) EDT PM EDT Gretchen Yoon MD CHEMISTRY ORDERABLES Performing Organization Address City/State/ZIP Code Phon e Number [place] [id number] Drive CT Angiogram [place] [facility] [place] (11/30/2019 4:36 PM EDT) Anatomical [...] CT HEAD WO CONTRAST (GENERIC), CT ANGIOGRAM [facility] [place] [facility] [place] CLINICAL HISTORY: Headache, intracranial hemorrhage suspected F/U on known ICH - assessing for propaga tion TECHNIQUE: CT head performed without intravenous co ntrast administration. CT angiogram [place] [facility] [place] 65 cc Omnipaque 350 administered [...] HEAD WO CONTRAST (GENERI C), CT ANGIOGRAM [facility] [place] CLINICAL HISTORY: Headache, intracranial hemorrhage suspected F/U on known ICH - assessing for propaga tion TECHNIQUE: CT head performed without intravenous co ntrast administration. CT angiogram [place] [facility] [place] 65 cc Omnipaque 350 administered [...] CT HEAD WO CONTRAST (GENERIC), CT ANGIOGRAM [facility] [place] CLINICAL HISTORY: Headache, intracranial hemorrhage suspected F/U on known ICH - assessing for propaga tion TECHNIQUE: CT head performed without intravenous co ntrast administration. CT angiogram [place] [facility] [place] 65 cc Omnipaque 350 administered [...] HEAD WO CONTRAST (GENERI C), CT ANGIOGRAM [facility] [place] CLINICAL HISTORY: Headache, intracranial hemorrhage suspected F/U on known ICH - assessing for propaga tion TECHNIQUE: CT head performed without intravenous co ntrast administration. CT angiogram [place] [facility] [place] 65 cc Omnipaque 350 administered [...] by: Angel Luis Barboza MD, [facility] ([phone]), at 11/30/2019 5:04 PM Gretchen Yoon MD [...] 453 ms MUSE SYSTEM (Bezet) Calculated P [place] 52 degrees MUSE SYSTEM Calculated R [place] 5 degrees MUSE SYSTEM Calculated T [place] -60 degrees MUSE SYSTEM INTERPRETATION Sinus rhythm [...] [place] ? (Age): 1945(74y) Med Rec#: ? [id number] ?Sex: ?M ? Site Loc: ? [facility] ?Ht / Wt: ??178(cm)/64(kg) Pt. Loc: ?[facility] ? BSA: ?1.8 Study Date: ?? 11/30/2019 ?Pt. Type: Inpatient Tape: ? Referring: GILMER Reading: Tello Mejia ([id number]) Direct Service Provider: Friend, Lolita Diagnosis: *ST elevation (STEMI) myocardial [...] Vmax ?0.58 ? m/sec ? MV deceleration vlox984.05 ? m sec ? MV A-wave Vmax [...] ? Mid-Inferior ?Akinetic ? Mid-Inferoseptal ?Normal ? Chama-Septal ? Normal ? Chama-Anterior ? Normal ? Chama-Lateral ?Normal ? Chama-Inferior ? Hypokinetic ? Chama-Tip ?Normal ? This report has been electronically sign ed by: _ Tello Mejia MD ? 11/30/2019 12: 45:27 Images reviewed and [facility] Procedure Note Tello Mejia MD - 11/30/2019Formatti ng of this note might be different from the original. Procedure: Transthoracic Echocardiogram Patient: RITA ACOSTA(Age): [birth year](74y) Med Rec#: [id number] Sex: M Site Loc: [facility] Ht / Wt: 178(cm)/64(kg) Pt. Loc: [facility] BSA: 1.8 Study Date: 11/30/2019 Pt. Type: Inpatie nt Tape: Referring: DONAYMICMUNIRAJ Reading: Tello Mejia ([id number]) Direct Service Provider: Lolita Prado Diagnosis: *ST elevation (STEMI) myocardial [...] MV E-wave Vmax 0.58 m/sec MV deceleration pstq021.05 msec MV A-wave Vmax 0.74 m/sec MV [...] Hypokinetic Mid-Posterolateral Hypokinetic Mid-Inferior Akinetic Mid-Inferoseptal Normal Chama-Septal Normal Chama-Anterior Normal Chama-Lateral Normal Chama-Inferior Hypokinetic Chama-Tip Normal This report has been electronically sign ed by: _ Tello Mejia MD 11/30/2019 12:45:27 Images reviewed and interpretation rafaela devin [facility] Gretchen Yoon MD ECHO [...] by: Angel Luis Barboza MD, [facility] ([phone]), at 11/30/2019 12:04 PM Narrative 11/30/2019 12:04 [...] ORDERABLES Magnesium (11/30/2019 8:30 AM EDT) athologist [facility] Magnesium 0.88 0.69 - 1.07 [facility] mmol/L [facility] Specimen Anatomical Collection Method Collection Time Receive d Time (Source) Location / / Volume Laterality Blood specimen Venous Draw / 11/30/2019 8:30 AM 2019 8:37 (specimen) Unknown EDT AM EDT Resulting Agency Comment Spec In Lab Rossy Winn MD CHEMISTRY ORDERABLES Performing Organization Address City/[facility]/[place] [address] (ABNORMAL) CK (11/30/2019 8:30 AM EDT) athologist [facility] CK, Total 1,645 (H) 0 - [facility] Specimen Anatomical Collection Method Collection Time Receive d Time (Source) Location / / Volume Laterality Blood specimen 11/30/2019 8:30 AM 020 8:32 (specimen) EDT AM EDT Resulting Agency Comment Spec In Lab Gretchen Yoon MD CHEMISTRY ORDERABLES Performing Organization Address City/[facility] [place] [address] (ABNORMAL) Troponin (11/30/2019 8:30 AM EDT) athologist [facility] Troponin-T 8.04 (H) 0.00 - MELINA DOV 0.00 ng/mL [facility] Comment: result rechecked-rancho The 99th percentile for Troponin T is le ss than 0.01 ng/mL, any detectable cTnT concentration using this assay should be considered elevated. According to the third universal definit ion of myocardial infarction the following criteria with a clinical prese ntation consistent with acute myocardial ischemia meets the diagnosis for a myocardial infarction (IN). Detection of a rise and/or fall of [...] additional sample may be indicated. Reference: Third Lamar Definition of Myocardial Infarction. Journal of the [employer] 2012;60:1581-98 Specimen Anatomical Collection Method Collection Time Receive d Time (Source) Location / / Volume Laterality Blood specimen 11/30/2019 8:30 AM 020 8:32 (specimen) EDT AM EDT Resulting Agency Comment Spec In Lab Gretchen Yoon MD CHEMISTRY ORDERABLES Performing Organization Address City/State/ZIP Code Phon e Number [place] [id number] EKG 12 Lead (11/30/2019 7:57 AM EDT) Component Value Ref Range Test Analysis Performed Pathologis t Method Time At Signature Ventricular rate 64 BPM MUSE SYSTEM Atrial Rate 64 BPM MUSE SYSTEM P-R Interval 132 ms MUSE SYSTEM QRS Duration 78 ms MUSE SYSTEM Q-T Interval 420 ms MUSE SYSTEM QTC Calculated 433 ms MUSE SYSTEM (Bezet) Calculated P [place] 28 degrees MUSE SYSTEM Calculated R [place] 7 degrees MUSE SYSTEM Calculated T [place] -33 degrees MUSE SYSTEM INTERPRETATION Sinus rhythm [...] Signature Glucose 147 (H) 65 - 99 [facility] Fasting mg/dL [facility] Comment: ?Fasting* Glucose Interpretive [...] of Diabetes Mellitus, Position Statement from the [place] [employer]. ??Diabete s Care, Volume 33, [...] of body mass or the acutely ill. [email or web address]kf eGFR 98 >=60 mL/min/1.73 m?? [facility] Comment: The eGFR was calculated using the CKD-EP I equation. As with all creatinine based estimates of kidney function, eGFR values calculated with the CKD-EPI equation are not accurate in patients wi th acute kidney failure, extremes of body mass or the acutely ill. [email or web address] Specimen Anatomical Collection Method Collection Time Receive d Time (Source) Location / / Volume Laterality Blood specimen 11/30/2019 2:15 AM 020 2:29 (specimen) EDT AM EDT Resulting Agency Comment Spec In Lab Gretchen Yoon MD CHEMISTRY ORDERABLES Performing Organization Address City/State/ZIP Code Phon e Number [place] [id number] (ABNORMAL) Hemogram (11/30/2019 2:15 AM EDT) Analysis Performed At Patho logist Time Signature WBC 11.2 (H) 4.0 - 9.5 [facility] x10(3)/[facility] LABORATORY RBC 3.83 (L) 4.58 - [facility] 5.54 [facility] x10(6)/[facility] LABORATORY Hemoglobin 11.4 (L) 13.7 - [facility] 16.5 gm/dL [facility] Hematocrit 35.2 (L) 40.5 - [facility] 48.5 % [facility] MCV 91.9 82.9 - [facility] 93.1 fL [facility] MCH 29.8 27.5 - [facility] 32.1 pg [facility] MCHC 32.4 32.0 - MELINA MONAE 35.7 gm/dL [facility] Platelets 122 (L) 145 - 357 MLEINA MARSHDOV x10(3)/[facility] LABORATORY RDWSD 49.8 (H) 36.0 - MELINA MONAE 45.0 [facility] LABORATORY RDWCV 14.8 (H) 11.4 - MELINA [place] 13.8 % [facility] MPV 12.1 7.6 - 12.9 MELINA MONAE [facility] LABORATORY nRBC % Auto 0.0 % [facility] LABORATORY nRBC Abs Auto 0.000 0.000 - MELINA MARSHDOV 0.000 [facility] x10(3)/[facility] LABORATORY Specimen Anatomical Collection Method Collection Time Receive d Time (Source) Location / / Volume Laterality Blood specimen 11/30/2019 2:15 AM 020 2:29 (specimen) EDT AM EDT Resulting Agency Comment Spec In Lab Gretchen Yoon MD HEMATOLOGY ORDERABLES Performing Organization Address City/State/[place] [address] (ABNORMAL) CK (11/30/2019 2:15 AM EDT) athologist [facility] CK, Total 1,969 (H) 0 - 200 [facility] DOV unit/L [facility] Specimen Anatomical Collection Method Collection Time Receive d Time (Source) Location / / Volume Laterality Blood specimen 11/30/2019 2:15 AM 020 2:29 (specimen) EDT AM EDT Resulting Agency Comment Spec In Lab Gretchen Yoon MD CHEMISTRY ORDERABLES Performing Organization Address City/State/[place] [address] (ABNORMAL) Troponin (11/30/2019 2:15 AM EDT) athologist [facility] Troponin-T 11.73 (H) 0.00 - MELINA MONAE 0.00 ng/mL [facility] Comment: result rechecked-slw The 99th percentile for Troponin T is le ss than 0.01 ng/mL, any detectable cTnT concentration using this assay should be considered elevated. According to the third universal definit ion of myocardial infarction the following criteria with a clinical prese ntation consistent with acute myocardial ischemia meets the diagnosis for a myocardial infarction (IN). Detection of a rise and/or fall of [...] additional sample may be indicated. Reference: Third Lamar Definition of Myocardial Infarction. Journal of the [employer] 2012;60:1581-98 result rechecked- The 99th percentile for Troponin T is le ss than 0.01 ng/mL, any detectable cTnT concentration using this assay should be considered elevated. According to the third universal definit ion of myocardial infarction the following criteria with a clinical prese ntation consistent with acute myocardial ischemia meets the diagnosis for a myocardial infarction (IN). Detection of a rise and/or fall of [...] additional sample may be indicated. Reference: Third Lamar Definition of Myocardial Infarction. Journal of the [employer] 2012;60:1581-98 Corrected from 11.73 ng/ml [HI] on 11/29 3:11:51 EDT by Debi Hawley Specimen Anatomical Collection Method Collection Time Receive d Time (Source) Location / / Volume Laterality Blood specimen 11/30/2019 2:15 AM 020 2:29 (specimen) EDT AM EDT Resulting Agency Comment Spec In Lab Gretchen Yoon MD CHEMISTRY ORDERABLES Performing Organization Address City/[facility]/ZIP Code Phon e Number [address] LDL Cholesterol, Direct (11/30/2019 2:15 AM EDT) P athologist Signature LDL Chol 156 mg/dL [facility] LABORATORY Comment: Lowest Risk: <100 mg/dL Lower Risk: 100-129 mg/dL Borderline High Risk: 130-159 mg/dL High Risk: 160-189 mg/dL Very High Risk: >bp=174 mg/dL Specimen Anatomical Collection Method Collection Time Receive d Time (Source) Location / / Volume Laterality Blood specimen 11/30/2019 2:15 AM 020 2:29 (specimen) EDT AM EDT Resulting Agency Comment Spec In Lab Gretchen Yoon MD CHEMISTRY ORDERABLES Performing Organization Address City/[facility]/ZIP Code Phon e Number [address] (ABNORMAL) Hemoglobin A1c (11/30/2019 2:15 AM EDT) Analysis Performed At Patho logist Time Signature Hemoglobin A1C 6.3 (H) 4.3 - 5.6 [facility] LABORATORY Comment: Reference Range: 4.3 - [...] Mellitus, Diabetes Care 2013; 36: Suppl. 1, R43-28 Est Avg Gluc See note mg/dL [facility] LABORATORY Comment: Estimated Average Glucose [...] with hemoglobinopathies. Additional resources are available on [facility] ADA website. Kiko CARBAJAL, Jenn J, Silas R, et al. ??Tr anslating the A1C assay into estimated average glucose values. ??Diabetes Care 2008:31(8):4292-1074. Specimen Anatomical Collection Method Collection Time Receive d Time (Source) Location / / Volume Laterality Blood specimen 11/30/2019 2:15 AM 020 2:29 (specimen) EDT AM EDT Resulting Agency Comment Spec In Lab Gretchen Yoon MD CHEMISTRY ORDERABLES Performing Organization Address City/State/[place] [address] Lipid Panel (Reflex Direct LDL) (11/30/2019 2:15 AM EDT) athologist Signature Chol, Total 195 mg/dL [facility] LABORATORY Comment: Lower Risk: <200 mg/dL Average Risk: 200-239 mg/dL Higher Risk: >ao=480 mg/dL Triglycerides 93 mg/dL [facility] LABORATORY Comment: Average Risk/Lower Risk: <150 mg/dL Borderline High Risk: 150-199 mg/dL High Risk: 200-499 mg/dL Very High Risk: >jw=514 mg/dL HDL 32 mg/dL [facility] LABORATORY Comment: Males: ?? Higher Risk: <40 mg/dL Females: ?? HIgher Risk: <50 mg/dL LDL Cholesterol 144 mg/dL [facility] LABORATORY Comment: Lowest Risk: <100 mg/dL Lower Risk: 100-129 mg/dL Borderline High Risk: 130-159 mg/dL High Risk: 160-189 mg/dL Very High Risk: >ri=272 mg/dL Chol/HDL Ratio 6.1 ratio [facility] LABORATORY Lipid Interpretation See Note [facility] LABORATORY Comment: Lipid management should be guided by a p atient? s ASCVD risk, goals and preferences. ACC/AHA Guidelines recommend high intens ity statin if clinical ASCVD or LDL greater than or equal to 190 mg/dL. http://Appcelerator/IPZ-PKO-Zwrqvuehl Adults aged 40-75 with LDL 70-189 mg/dL should have their 10 year ASCVD risk estimated with the ACC/AHA ASCVD risk es timator http://tools.acc.org/BXTHM-Mfgn-Icnnjbix r/ Statin should be discussed if risk [...] Organization Address City/State/[place] [address] (ABNORMAL) CK (11/29/2019 6:35 PM EDT) athologist Signature CK, Total 2,780 (H) 0 - 200 [facility] unit/L [facility] LABORATORY Specimen Anatomical Collection Method Collection Time Receive d Time (Source) Location / / Volume Laterality Blood specimen 11/29/2019 6:35 PM 020 6:53 (specimen) EDT PM EDT Resulting Agency Comment Spec In Lab Gretchen Yoon MD CHEMISTRY ORDERABLES Performing Organization Address City/State/[place] [address] (ABNORMAL) Troponin (11/29/2019 6:35 PM EDT) athologist Signature Troponin-T 17.60 (H) 0.00 - [facility] 0.00 ng/mL [facility] LABORATORY Comment: result rechecked-az The 99th percentile for Troponin T is le ss than 0.01 ng/mL, any detectable cTnT concentration using this assay should be considered elevated. According to the third universal definit ion of myocardial infarction the following criteria with a clinical prese ntation consistent with acute myocardial ischemia meets the diagnosis for a myocardial infarction (IN). Detection of a rise and/or fall of [...] additional sample may be indicated. Reference: Third Lamar Definition of Myocardial Infarction. Journal of the [employer] 2012;60:1581-98 Specimen Anatomical Collection Method Collection Time Receive d Time (Source) Location / / Volume Laterality Blood specimen 11/29/2019 6:35 PM 020 6:53 (specimen) EDT PM EDT Resulting Agency Comment Spec In Lab Gretchen Yoon MD CHEMISTRY ORDERABLES Performing Organization Address City/State/ZIP Code Phon e Number [place] [id number] EKG 12 Lead (11/29/2019 3:58 PM EDT) [facility] gist Method Time Signature Ventricular rate 73 BPM MUSE SYSTEM Atrial Rate 73 BPM MUSE SYSTEM P-R Interval 152 ms MUSE SYSTEM QRS Duration 84 ms MUSE SYSTEM Q-T Interval 404 ms MUSE SYSTEM QTC Calculated 445 ms MUSE SYSTEM (Bezet) Calculated P Shamokin 50 degrees MUSE SYSTEM Calculated R Shamokin -4 degrees MUSE SYSTEM Calculated T Shamokin 19 degrees MUSE SYSTEM INTERPRETATION Sinus rhythm [...] Electronically signed by: Devin Solis [facility] ([phone]), at 11/29/2019 5:06 PM --------ORIGINAL REPORT -------- EXAMINATION: XR CHEST ONE VIEW CLINICAL HISTORY: stemi (as entered by o [facility] provider in the order requisition) TECHNIQUE: [...] lung apex is excluded from the imaged [id number]. IMPRESSION: 1. ??New right internal jugular pulmonar [...] Electronically signed by: Devin Solis [facility] ([phone]), at 11/29/2019 4:36 PM Impressions 11/29/2019 4:36 [...] Electronically signed by: Devin Solis [facility] ([phone]), at 11/29/2019 4:36 PM Narrative 11/29/2019 4:36 [...] lung apex is excluded from the imaged [id number]. Procedure Note Estefani Harris MD - 11/29/2019Formattin [...] lung apex is excluded from the imaged [id number]. IMPRESSION 1. New right internal jugular pulmonary [...] (ABNORMAL) Differential, Automated (11/29/2019 2:32 PM EDT) [facility] Method Time Signature Neutrophils % 83.8 % [facility] LABORATORY Neutr Abs (ANC) 12.12 (H) 1.70 - [facility] 6.10 [facility] x10(3)/[facility] LABORATORY Lymphocytes % 9.1 % [facility] LABORATORY Lymphocytes Abs 1.3 0.9 - 3.2 [facility] x10(3)/[facility] LABORATORY Monocytes % 6.2 % [facility] LABORATORY Monocyte Abs 0.9 0.3 - 0.9 [facility] x10(3)/[facility] LABORATORY Eosinophils % 0.0 % [facility] LABORATORY Eosinophils Abs 0.0 0.0 - 0.4 [facility] x10(3)/[facility] LABORATORY Basophils % 0.3 % [facility] LABORATORY Basophils Abs 0.0 0.0 - 0.1 [facility] x10(3)/[facility] LABORATORY Immature Gran % 0.60 % BAR[facility] [...] Gran Abs 0.08 (H) 0.00 - 0.04 x10(3)/[facility] LABORATORY Specimen Anatomical Collection Method Collection Time Receive d Time (Source) Location / / Volume Laterality Blood specimen 11/29/2019 2:32 PM 020 2:55 (specimen) EDT PM EDT Resulting Agency Comment Spec In Lab Darrell Glasgow MD HEMATOLOGY ORDERABLES Performing Organization Address City/State/[place] [address] (ABNORMAL) Hemogram (11/29/2019 2:32 PM EDT) Analysis Performed At Patho logist Time Signature WBC 14.5 (H) 4.0 - 9.5 [facility] x10(3)/[facility] LABORATORY RBC 4.53 (L) 4.58 - [facility] 5.54 [facility] x10(6)/[facility] LABORATORY Hemoglobin 13.1 (L) 13.7 - [facility] 16.5 gm/dL [facility] LABORATORY Hematocrit 40.8 40.5 - [facility] 48.5 % [facility] LABORATORY MCV 90.1 82.9 - [facility] 93.1 [facility] LABORATORY MCH 28.9 27.5 - [facility] 32.1 pg [facility] LABORATORY MCHC 32.1 32.0 - [facility] 35.7 gm/dL [facility] LABORATORY Platelets 184 145 - 357 [facility] x10(3)/[facility] LABORATORY RDWSD 47.8 (H) 36.0 - [facility] DOV 45.0 [facility] LABORATORY RDWCV 14.5 (H) 11.4 - [facility] DOV 13.8 % [facility] LABORATORY MPV 11.9 7.6 - 12.9 [facility] nRBC % Auto 0.0 % [facility] LABORATORY nRBC Abs Auto 0.000 0.000 - [facility] DOV 0.000 [facility] x10(3)/[facility] LABORATORY Specimen Anatomical Collection Method Collection Time Receive d Time (Source) Location / / Volume Laterality Blood specimen 11/29/2019 2:32 PM 020 2:55 (specimen) EDT PM EDT Resulting Agency Comment Spec In Lab Darrell Glasgow MD HEMATOLOGY ORDERABLES Performing Organization Address City/State/ZIP Code Phon e Number [address] (ABNORMAL) CK (11/29/2019 2:32 PM EDT) athologist Signature CK, Total 3,282 (H) 0 - 200 [facility] unit/L [facility] LABORATORY Specimen Anatomical Collection Method Collection Time Receive d Time (Source) Location / / Volume Laterality Blood specimen 11/29/2019 2:32 PM 020 2:32 (specimen) EDT PM EDT Resulting Agency Comment Spec In Lab Gretchen Yoon MD CHEMISTRY ORDERABLES Performing Organization Address City/[facility]/[place] [address] (ABNORMAL) Troponin (11/29/2019 2:32 PM EDT) athologist Signature Troponin-T 20.33 (H) 0.00 - [facility] 0.00 ng/mL [facility] LABORATORY Comment: The 99th percentile for Troponin T is le ss than 0.01 ng/mL, any detectable cTnT concentration using this assay should be considered elevated. According to the third universal definit ion of myocardial infarction the following criteria with a clinical prese ntation consistent with acute myocardial ischemia meets the diagnosis for a myocardial infarction (IN). Detection of a rise and/or fall of [...] additional sample may be indicated. Reference: Third Lamar Definition of Myocardial Infarction. Journal of the [employer] 2012;60:1581-98 Specimen Anatomical Collection Method Collection Time Receive d Time (Source) Location / / Volume Laterality Blood specimen 11/29/2019 2:32 PM 020 2:32 (specimen) EDT PM EDT Resulting Agency Comment Spec In Lab Gretchen Yoon MD CHEMISTRY ORDERABLES Performing Organization Address [facility] [place] [address] (ABNORMAL) APTT (11/29/2019 2:32 PM EDT) athologist Signature PTT 114 25 - 37 [facility] (Critical) [facility] LABORATORY Comment: Critical Result called by ?? [...] Yoon MD HEMATOLOGY ORDERABLES Performing Organization Address [facility] [place] [address] (ABNORMAL) Prothrombin Time (11/29/2019 2:32 PM EDT) P athologist Signature PT 13.5 (H) 9.4 - 12.5 [facility] LABORATORY INR 1.2 [facility] LABORATORY [...] Organization Address City/State/[place] [address] (ABNORMAL) Hepatic Function Panel (11/29/2019 2:32 PM EDT) athologist Signature Total Protein 6.3 6.1 - 8.0 [facility] gm/dL [facility] LABORATORY Albumin 3.6 3.2 - 5.2 [facility] gm/dL [facility] LABORATORY AST 257 (H) 0 - 39 [facility]L [facility] LAB[facility]ATORY ALT 50 0 - 55 [facility]L [facility] LABORATORY Alk Phos 84 40 - 130 [facility] unit/L [facility] LABORATORY Total 0.3 0.2 - 1.3 [facility] Bilirubin mg/dL [facility] LABORATORY Bili, Direct 0.1 0.0 - 0.3 [facility] DOV mg/dL [facility] LABORATORY Specimen Anatomical Collection Method Collection Time Receive d Time (Source) Location / / Volume Laterality Blood specimen 11/29/2019 2:32 PM 020 2:32 (specimen) EDT PM EDT Resulting Agency Comment Spec In Lab Gretchen Yoon MD CHEMISTRY ORDERABLES Performing Organization Address City/[facility]/[place] [address] (ABNORMAL) pro-Brain Natriuretic Peptide (11/29/2019 2:32 PM EDT) P athologist Signature ProBNP 272 (H) <=125 pg/mL [facility] LABORATORY Specimen Anatomical Collection Method Collection Time Receive d Time (Source) Location / / Volume Laterality Blood specimen 11/29/2019 2:32 PM 020 2:32 (specimen) EDT PM EDT Resulting Agency Comment Spec In Lab Gretchen Yoon MD CHEMISTRY ORDERABLES Performing Organization Address City/[facility]/[place] [address] Magnesium (11/29/2019 2:32 PM EDT) athologist Signature Magnesium 0.76 0.69 - 1.07 [facility] mmol/L [facility] LABORATORY Specimen Anatomical Collection Method Collection Time Receive d Time (Source) Location / / Volume Laterality Blood specimen 11/29/2019 2:32 PM 020 2:32 (specimen) EDT PM EDT Resulting Agency Comment Spec In Lab Gretchen Yoon MD CHEMISTRY ORDERABLES Performing Organization Address City/State/ZIP Code Phon e Number [address] (ABNORMAL) Basic Metabolic Panel (non-fasting) (11/29/2019 2:32 PM EDT) athologist Signature Glucose Lvl 149 65 - 199 [facility] mg/dL [facility] LABORATORY Comment: Diabetes: >=200 mg/dL [...] of body mass or the acutely ill. [email or web address] eGFR 93 >=60 mL/min/1.73 m?? [facility] LABORATORY Comment: The eGFR was calculated using the CKD-EP I equation. As with all creatinine based estimates of kidney function, eGFR values calculated with the CKD-EPI equation are not accurate in patients wi th acute kidney failure, extremes of body mass or the acutely ill. [email or web address] VINITAnkf Specimen Anatomical Collection Method Collection Time Receive d Time (Source) Location / / Volume Laterality Blood specimen 11/29/2019 2:32 PM 020 2:32 (specimen) EDT PM EDT Resulting Agency Comment Spec In Lab Gretchen Yoon MD CHEMISTRY ORDERABLES Performing Organization Address City/[facility] [place] [address] EKG 12 Lead (11/29/2019 11:38 AM EDT) [facility] gist Method Time Signature Ventricular rate 60 BPM MUSE SYSTEM Atrial Rate 60 BPM MUSE SYSTEM P-R Interval 140 ms MUSE SYSTEM QRS Duration 86 ms MUSE SYSTEM Q-T Interval 474 ms MUSE SYSTEM QTC Calculated 474 ms MUSE SYSTEM (Bezet) Calculated P Shamokin 48 degrees MUSE SYSTEM Calculated R Shamokin 14 degrees MUSE SYSTEM Calculated T Shamokin 58 degrees MUSE SYSTEM INTERPRETATION Normal sinus [...] Yoon MD ECG ORDERABLES Performing Organization Address City/[facility]/ZIP [facility] Phon e Number MUSE SYSTEM CARDIAC CATHETERIZATION (11/29/2019 11:15 AM EDT) Anatomical Region Laterality Modality Other Specimen (Source) Anatomical Location Collection Method / Collectio n Time Received Time / Laterality Volume Narrative 11/30/2019 1:09 PM EDT ?[facility] ? Cardiac Cathete rization/Intervention Report ? Patient Name: Salinas, Angel Luis H. ? Procedure Date: 11/29/2019 ? A #: [id number] ? Primary Physician: Young, Gretchen N ? Case #: [id number] ? File Name: [id number] ? Catheterization Order Number: [id number] ? [facility] ?Grades 1 Thru 6 [facility] ? Final Report [place], [place] ? Patient Name: ? Angel Luis Salinas ? ID#: ?[id number] ? : ?1945 ? Procedure Date: ? [...] procedure was Emergent. The indication for ?the analytical lab analyst visit is ACS less than or equal [...] dose administered prior to arrival in the analytical lab analyst. ?Recommended anti-platelet/anti- thrombotic regimen: ?Continue aspirin 81 mg daily fo r indefinitely. ?Continue clopidogrel 75 mg marco a y for 12 months then stop. ?These recommendations are made at the time of the intervention. Patient ?and provider preferences or a c hanging clinical situation may require ?modification of this regimen. C marvult [facility] Interventional Cardiology for ?questions. ? [...] be different from the original. [facility] Cardiac Catheterization/Intervention Re port Patient Name: Angel Luis Salinas Procedure Date: 11/29/2019 A #: [id number] Primary Physician: Gretchen Yoon Case #: [id number] File Name: [id number] Catheterization Order Number: [id number] [facility] Final Report [place], [place] Patient Name: Angel Luis Salinas ID#: [id number] : 1945 Procedure Date: November 29, [...] was designated as ASA Class IV. The [facility] clinical frailty scale is 4: Vulnerable. Diagnostic Tests: Electrocardiography: EKG was assessed by ECG. EKG was Abnorm al. EKG showed ST Deviation >= 0.5 mm. Medications Prior to Procedure: Aspirin. Indications for Diagnostic Cath: The priority of the diagnostic procedur e was Emergent. The indication for the analytical lab analyst visit is ACS less than or equal [...] priority for the procedure was Emergent. The [facility] indication for the procedure was S [...] this intervention was 10%. The final TI IN flow was 2. Distal 90% Thrombectomy and [...] this intervention was 10%. The final TI IN flow was 2. Vascular Access: Vascular Access [...] administered prior t o arrival in the analytical lab analyst. Recommended anti-platelet/anti-thrombot ic regimen: Continue aspirin 81 mg daily for indefi nitely. Continue clopidogrel 75 mg daily for 12 months then stop. These recommendations are made at the t loyda of the intervention. Patient and provider preferences or a changing clinical situation may require modification of this regimen. Consult D [facility] Interventional Cardiology for questions. Conclusions: * Two [...] Signature POC pH 7.33 (L) 7.35 - [facility] 7.45 [facility] LABORATORY POC PCO2 33 (L) 35 - 45 [facility] mmHg [facility] LABORATORY POC PO2 56 (L) 85 - 104 [facility] LABORATORY POC Base Excess -8.0 (L) -3.0 - 3.0 [facility] K mmol/L [facility] LABORATORY POC HCO3 17.4 (L) 20.0 - [facility] 26.0 [facility] mmol/[facility] LABORATORY POC Sodium 137 135 - 145 [facility] mmol/L [facility] LABORATORY POC Potassium 3.6 3.5 - 5.0 [facility] mmol/L [facility] POC Ionized Ca 1.15 1.15 - [facility] 1.33 [facility] POC Hematocrit 37.0 (L) 40.0 - [facility] 51.0 % [facility] LABORATORY POC Calc Hgb 12.6 (L) 13.7 - [facility] 17.5 gm/dL [facility] LABORATORY Comment: The calculation of hemoglobin f rom hematocrit assumes a normal MCHC. POC Bgas Loc CC LAB [facility] LABORATORY Specimen Anatomical Collection Method Collection Time Receive d Time (Source) Location / / Volume Laterality Blood specimen 11/29/2019 9:17 AM 020 7:35 (specimen) EDT AM EDT Gretchen Yoon MD CHEMISTRY ORDERABLES Performing Organization Address City/State/[place] [address] EKG 12 Lead (11/29/2019 9:01 AM EDT) Component Value Ref Range Test Analysis Performed Pathologis t Method Time At Signature Ventricular rate 80 BPM MUSE SYSTEM Atrial Rate 79 BPM MUSE SYSTEM QRS Duration 94 ms MUSE SYSTEM Q-T Interval 436 ms MUSE SYSTEM QTC Calculated 502 ms MUSE SYSTEM (Bezet) Calculated R Shamokin 54 degrees MUSE SYSTEM Calculated T Shamokin 80 degrees MUSE SYSTEM INTERPRETATION Normal sinus rhythm MUSE SYSTEM Inferior infarct , possibly acute Prolonged QT * ACUTE IN ?? Consider right ventricular involvement in acute [...] 150 mg, Intravenous, ONCE, 1 dose, On [place] 12/07/19 at 1315, Warning Vesicant/Irritant Medication , [...] CONTINUOUS, Starting on 11/29/19 at 1930, Until [place] 11/30/19 at 0029, Please stop drip once [...] Intravenous, ONCE PRN, 1 dose, Starting on [place] 11/30/19 at 1636, Until [place] 11/30/19 at 1636, Per Protocol, Warning Vesicant/Irritant [...] mL/hr 250 mL/hr, Intravenous, CONTINUOUS, Starting on [place] 12/07/19 at 0145, Until [place] 12/07/19 at 0239 levoFLOXacin (LEVAQUIN) 750 mg in New Bag 11/30/2019 11:03 PM EDT 750 mg 100 mL/hr dextrose 5% 150 mL 750 mg, Intravenous, at 100 mL/hr, EVERY 24 HOURS, First dose on [place] 11/30/19 at 2300, Until Discontinued, Routine, Indication [...] 2 g, Intravenous, ONCE, 1 dose, On [facility] 11/29/19 at 1530, Administer over 120 [...] RN) 150 mg, Intravenous, ONCE, 1 dose, [place] at 1315, Warning Vesicant/Irritant Medication , Routine [...] ONCE, 1 dose, 12/06/19 at 0515, 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
Administer for serum potassium (mMol/L) of 3.9 - 4 See instructions for Potassium Protocol in online policies.
Routine Or potassium chloride ER (K-Dur/Klor-Con) tablet 40 mEqJump to med 40 mEq, Oral, EVERY 4 HOURS PRN, Startin g [place] 11/30/19 at 2016, Until Sun12/08/19 at 1811, hypokalemia
Administer for serum potassium (mMol/L) of 3.6 - 3.8 See instructions for Potassium Protocol in online policies.
Routine documented in this encounter Care Teams Public Address System Operator Relationship Specialty Start Date End Date France Lam MD PCP - General 05/02/13 02/04/20 [address] [place] [address] documented as of this encounter
--- OUTSIDE RECORDS SUMMARY | 2022-04-13 11:02 | XMS_ITS | Encounter Summary ---
:1945 Author Organization [facility] [place] [address] Care Team Providers Name Role Phone France Lam MD Primary Care Provider Encounter Details Date Type Department Care Team Description 11/30/2019 Orders Only Cardiology [facility] [place] [address] Social History Tobacco Use Types Packs/Day [...] fajardo ? (Age): 1945(74y) Med Rec#: ? [id number] ?Sex: ?M ? Site Loc: ? Ht / Wt: ??(cm)/ (kg) ? Pt. Loc: ? Study Date: ?? 11/29/2019 ?Pt. Type: Tape: ? Referring: Faustino Garduno Reading: Dawit Mejia ([id number]) Manager Medicare: [employer] Support Staff: Cedric Eric ([id number]) Interpreting Fellow: Cedric Eric ([phone]) Diagnosis: SUMMARY: 1. Limited bedside echocardiogram perfor med by automation analyst fiber optics technician for hypotension following inferior STEMI . [...] ? Mid-Inferior ?Akinetic ? Mid-Inferoseptal ?Hypokinetic ? [facility]-Septal ? Normal ? [facility]-Anterior ? Normal ? [facility]-Lateral ?Normal ? [facility]-Inferior ? Hypokinetic ? [facility]-Tip ?Normal ? This report has been electronically sign ed by: _ Dawit Mejia MD ? 11/30/2019 12: 53:59 Images reviewed and interpretation [email or web address] [email or web address] [facility] Cardiac Ultrasound Laboratory Procedure Note Dawit Mejia MD - 11/30/2019Formatti ng of this note might be different from the original. Procedure: Transthoracic Echocardiogram Patient: domenica ACOSTA(Age): [age]y) Med Rec#: [id number] Sex: M Site Loc: Ht / Wt: (cm)/ (kg) Pt. Loc: Study Date: 11/29/2019 Pt. Type: Tape: Referring: Faustino Garduno Reading: Dawit Mejia ([id number]) Manager Medicare: [employer] Support Staff: Cedric Eric ([id number]) Interpreting Fellow: Cedric Eric ([phone]) Diagnosis: SUMMARY: 1. Limited bedside echocardiogram perfor med by automation analyst fiber optics technician for hypotension following inferior STEMI . [...] Normal Mid-Posterolateral Akinetic Mid-Inferior Akinetic Mid-Inferoseptal Hypokinetic [facility]-Septal Normal [facility]-Anterior Normal [facility]-Lateral Normal [facility]-Inferior Hypokinetic [facility]-Tip Normal This report has been electronically sign ed by: _ Dawit Mejia MD 11/30/2019 12:53:59 Images reviewed and interpretation verif ied [facility] Cardiac Ultrasound Laboratory Unknown ECHO ORDERABLES documented in this encounter Visit Diagnoses Not on filedocumented in this encounter Care Teams [employer] Sergeant Relationship Specialty Start Date End Date France Lma MD PCP - General 05/02/13 02/04/20 [address] [place] [address] documented as of this encounter
--- OUTSIDE RECORDS SUMMARY | 2022-04-13 11:03 | XMS_ITS | Encounter Summary ---
:1945 [place] [address] Care Team Providers Name Role Phone France Lam MD Primary Care Provider Reason for Visit Auth/Cert Specialty Diagnoses / Procedures Referred By Contact Refer red To Contact Diagnoses STEMI (ST elevation myocardial infarction) STEMI Procedures CARDIAC CATHETERIZATION Referral ID Status Reason Start Date Expiration Date Visits Requ ested Visits Authorized [id number] 1 1 Encounter Details Date Type Department Care Team Description 11/29/2019 Surgery Rnfa Gretchen Corral, CARDIAC CATHETERIZATION [facility] [place] [address] [place] [id number] [phone] (Wo rk) Social History Tobacco Use Types [...] Luis Salinas Patient Age: 74 y.o. 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 Issues after hours and on [...] up to 10mcg/min. He was transferred to [facility] after the cath procedure. Bedside RHC showed CI 2.12, PAWP 11, PAP 38/15 indicating hypovolemic state. He received 1L bolus of NS with improvement of his blood pressure to 124/61. History of PAD, HLD - had side reactions to statins - so taking niacin and red rye grain. Chronic active smoker with more than 65 pack years. Family history of CO in father and two uncles. He's takingbaby [...] Electronically signed by: Angel Luis Barboza MD, [facility] ([phone]), at 11/30/2019 12:[address] Head wo [...] signed by: Angel Luis [facility] ([phone]), at 11/30/2019 5:[address] Angiogram [place] (Exam End: 11/30/2019 4:36 PM) Impression Head CT: Stable hemorrhage in the region of the left optic tract. CTA: Negative exam. No abnormal vasculature in the area of hemorrhage. Thank you for letting us participate in the care of this patient. For questions regarding this report, please contact the number below. Electronically signed by: Angel Luis Barboza MD, [facility] ([phone]), at 11/30/2019 5:04 PM MRI Brain wo [...] Electronically signed by: Angel Luis Barboza MD, [facility] ([phone]), at 12/01/2019 8:02 PM XR Chest One [...] ??? Penicillins Pt doesn't remember reaction ??? Eeabfju-Xjx-Hek Reductase Inhibitors Stiff neck, upset stomach, back [...] FOR ONE MONTH AND THEN STOP. Your mold unloader may tell you to start this medication again after one year. Clopidogrel (Plavix) 75 mg daily - This medication will help prevent clots from forming in your blood, which will help protect the stent that was placed in your heart vessel. TAKE THIS FOR ONE YEAR ANDTHEN DISCUSS WITH YOUR SUPERINTENDENT PIER WHETHER TO STOP. Amiodarone 400mg twice daily [...] follow up: Your primary care provider and mold unloader will manage your blood thinner (apixaban). You do not need lab monitoring of this medication. Diet: Please consume a healthy diet low in cholesterol Follow up Appointments: 12/10/2019 at 3:10PM with PCP Angel Luis Lott Future Appointments Date Time Provider Department Center 12/23/2019 1:30 PM Alfreda Salas APRN [facility] [id number] 12/26/2019 9:40 AM Merlin Sanchez MD [facility] CARD 4A [facility] 12/30/2019 3:40 PM Gretchen Yoon MD [address] Future Appointments and Orders Future Appointments and Orders Future Appointments Provider Department Dept Phone 12/23/2019 1:30 PM Alfreda Salas APRN Neurosurgery at [facility] Arrive at: Home [phone] Please do not come in for this visit. Your provider will call you at the number you provided. 12/26/2019 9:40 AM Merlin Sanchez MD Cardiology at [facility] Arrive at: Home [phone] Please do not come in for this visit. Your provider will call you at the number you provided. 12/30/2019 3:40 PM Gretchen Yoon MD Cardiology at [facility] Arrive at: Home [phone] Please do not come in for this visit. Your provider will call you at the number you provided. Future Orders Complete By Expires Referral to Cardiac Rehab [GIA000 Custom] As directed Process Instructions: If no progress note charted, please enter Clinical details in comments. Scheduling Instructions: Questions: My question or request is: STEMI. Cardiac rehab at [facility] Referral to [facility] [REF43 Custom] As directed Process Instructions: If no progress note charted, please enter Clinical details in comments. Scheduling Instructions: Questions: My question or request is: patient with inferior stemi with history of statin allergy (rash) - please evaluate for psck9 inhibitor. Referral to Home Health - at DISCHARGE [VVV2587 CPT(R)] As directed Process Instructions: Scheduling Instructions: Comments: DOCUMENTATION FOR VNA SERVICES PATIENT'S LOCATION: Angel Luis Corcoran [address] [address] (home) Skilled Helper's Name: Self In discussion with the attending physician, it is certified that this patient is under his/her care and that MD, or an FUSING LINE INSPECTOR, RAIL CAR REPAIR CARMAN, or PA who is working directly with him/her, had a zcsk-fy-awhk encounter that meets the physician wbqo-gj-zskh encounter requirements with this patient on 12/07/2019. [...] HEALTH CARE AGENCY: [facility], PHONE: [phone] FAX: [phone] Start of care: 24-48 hours after hospital [...] MD [address] / [place] [address] All A agencies which cover the area [...] info: PCP Your PCP: France Lam MD [phone] For questions regarding this document or issues relating to this hospitalization on the Cardiology Service, please contact your inpatient physician through the [facility] Mining Plant Operator . Issues after hours and on weekends will be handled by the Public Health Social Worker on-call. Patient Instructions: Neurology Your Diagnosis: Left [...] follow-up appointment in the neurology clinic at [facility]. See below for the appointment time. If [...] [facility] Ar[facility] at: Home [phone] Please do not come in for this visit. Your provider will call you at the number you provided. 12/26/2019 9:40 AM Merlin Sanchez MD Cardiology at [facility] Arrive at: Home [phone] Please do not come in for this visit. Your provider will call you at the number you provided. 12/30/2019 3:40 PM Gretchen Yoon MD Cardiology at [facility] Arrive at: Home [phone] Please do not come in for this visit. Your provider will call you at the number you provided. Future Orders Complete By Expires Referral to Cardiac Rehab [[id number] Custom] As directed Process Instructions: If no progress note charted, please enter Clinical details in comments. Scheduling Instructions: Questions: My question or request is: STEMI. Cardiac rehab at [facility] Referral to [facility] [REF43 Custom] As directed Process Instructions: If no progress note charted, please enter Clinical details in comments. Scheduling Instructions: Questions: My question or request is: patient with inferior stemi with history of statin allergy (rash) - please evaluate for psck9 inhibitor. Referral to Home Health - at DISCHARGE [[id number] CPT(R)] As directed Process Instructions: Scheduling Instructions: Comments: DOCUMENTATION FOR VNA SERVICES PATIENT'S LOCATION: [address] [address] (home) Skilled Helper's Name: Self In discussion with the attending physician, it is certified that this patient is under his/her care and that MD, or an FUSING LINE INSPECTOR, RAIL CAR REPAIR CARMAN, or PA who is working directly with him/her, had a qlyc-ap-zwiw encounter that meets the physician ivfe-ig-akcr encounter requirements with this patient on 12/07/2019. [...] HEALTH CARE AGENCY: [facility], PHONE: [phone] FAX: [phone] Start of care: 24-48 hours after hospital [...] MD [address] / [place] [address] All A agencies which cover the area [...] contact info: PCP Discharge References/Attachments Atrial Fibrillation (Kenyan) Cardiac Rehabilitation (Kenyan) Heart Failure (Kenyan) Heart Failure: Limiting Sodium (Kenyan) Hemorrhagic Stroke: General Info (Kenyan) Smoking: Stopping (Kenyan) Stroke Rehabilitation: General Info (Kenyan) Pulmonary Embolism (Kenyan) Riki Stevens MD PGY-3, Internal Medicine Cardiology S2, #6708 Associated attestation - Paris Dodd MD - 12/09/2019 4:44 PM EDT Cardiology Attending Discharge Addendum I was the assigned attending mold unloader for this clinical encounter. For the purposes [...] complications include novel onset, paroxysmal atrial fibrillation [XBR6CU1VTTF: 5] & L-sided diplopia with potential hemineglect [...] My contact information: Paris Matt MD MPH [address], [place] [address] (office); Pager #[phone] Email: documented in this encounter Discharge Instructions [...] FOR ONE MONTH AND THEN STOP. Your mold unloader may tell you to start this medication again after one year. Clopidogrel (Plavix) 75 mg daily - This medication will help prevent clots from forming in your blood, which will help protect the stent that was placed in your heart vessel. TAKE THIS FOR ONE YEAR ANDTHEN DISCUSS WITH YOUR SUPERINTENDENT PIER WHETHER TO STOP. Amiodarone 400mg twice daily [...] follow up: Your primary care provider and mold unloader will manage your blood thinner (apixaban). You do not need lab monitoring of this medication. Diet: Please consume a healthy diet low in cholesterol Follow up Appointments: 12/10/2019 at 3:10PM with PCP Angel Luis Lott Future Appointments Date Time Provider Department Center 12/23/2019 1:30 PM Alfreda Salas APRN [facility] [id number] [facility] 12/26/2019 [...] [facility] Arrive at: Home [phone] Please do not come in for this visit. Your provider will call you at the number you provided. 12/26/2019 9:40 AM Merlin Sanchez MD Cardiology at [facility] Arrive at: Home [phone] Please do not come in for this visit. Your provider will call you at the number you provided. 12/30/2019 3:40 PM Gretchen Yoon MD Cardiology at [facility] Arrive at: Home [phone] Please do not come in for this visit. Your provider will call you at the number you provided. Future Orders Complete By Expires Referral to Cardiac Rehab [[id number] Custom] As directed Process Instructions: If no progress note charted, please enter Clinical details in comments. Scheduling Instructions: Questions: My question or request is: STEMI. Cardiac rehab at [facility] Referral to [facility] [REF43 Custom] As directed Process Instructions: If no progress note charted, please enter Clinical details in comments. Scheduling Instructions: Questions: My question or request is: patient with inferior stemi with history of statin allergy (rash) - please evaluate for psck9 inhibitor. Referral to Home Health - at DISCHARGE [[id number] CPT(R)] As directed Process Instructions: Scheduling Instructions: Comments: DOCUMENTATION FOR VNA SERVICES PATIENT'S LOCATION: [address] [address] (home) Skilled Helper's Name: Self In discussion with the attending physician, it is certified that this patient is under his/her care and that MD, or an FUSING LINE INSPECTOR, RAIL CAR REPAIR CARMAN, or PA who is working directly with him/her, had a ewqq-zx-kdhv encounter that meets the physician yfta-nz-jcky encounter requirements with this patient on 12/07/2019. [...] HEALTH CARE AGENCY: [facility], PHONE: [phone] FAX: [phone] Start of care: 24-48 hours after hospital [...] MD [address] / [place] [address] All A agencies which cover the area [...] info: PCP Your PCP: France Lam MD [phone] For questions regarding this document or issues relating to this hospitalization on the Cardiology Service, please contact your inpatient physician through the [facility] Mining Plant Operator . Issues after hours and on weekends will be handled by the Public Health Social Worker on-call. Patient Instructions: Neurology Your Diagnosis: Left [...] follow-up appointment in the neurology clinic at [facility]. See below for the appointment time. If you do not have an appointment, you will be called with a time/date for this appointment. ??? Primary Care Provider: Please follow up with your Primary Care Provider within one to 2 weeks ofdischarge. AttachmentsThe following attachments cannot be sent through Care Everywhere. Atrial Fibrillation (Kenyan)Cardiac Rehabilitation (Kenyan)Heart Failure (Kenyan)Heart Failure: Limiting Sodium (Kenyan)Hemorrhagic Stroke: General Info (Kenyan)Smoking: Stopping (Kenyan)Stroke Rehabilitation: General Info (Kenyan)Pulmonary Embolism (Kenyan)documented in this encounter Medications at Time of [...] consulted in the interim. Vikash Rodriguez Pager: [phone] Paris Dodd MD - 12/08/2019 8:57 AM [...] complications include novel onset, paroxysmal atrial fibrillation [VDP3OR1NVNY: 5] & L-sided diplopia with potential hemineglect [...] consulted in the interim. Vikash Rodriguez Pager: [phone] Paris Dodd MD - 12/07/2019 9:55 AM [...] complications include novel onset, paroxysmal atrial fibrillation [GCR9PD6QKUY: 5] & L-sided diplopia with potential hemineglect [...] complications include novel onset, paroxysmal atrial fibrillation [GJM1GD0OTMS: 5] & L-sided diplopia with potential hemineglect [...] complications include novel onset, paroxysmal atrial fibrillation [TNC7II2LPSX: 5] & L-sided diplopia with potential hemineglect [...] today; additional complications include paroxysmal atrial fibrillation [ZPA0ND0KYNJ: 4] c/b possible cardioembolic stroke, ICH from [...] length from neck/greatest diameter to back wall: KYRGYZ 91, CAU 13: 19 mm CORTES 1, [...] a non-culprit artery. S/P DESx3 in the ncamfetr-lr-zdibhf RCA. Aspiration thrombectomy performed, and integrellin bolus [...] complications include novel onset, paroxysmal atrial fibrillation [QYR2YD7HDIN: 5] & L-sided diplopia with potential hemineglect [...] R occipital cardioembolic stroke #Paroxysmal Afib with NF5RMQFO9E score of 5 #New segmental bilateral PEs [...] Glasgow MD PGY1, Internal Medicine Cardiology S2, #4115 Associated attestation - Paris Dodd MD - 12/05/2019 2:59 PM EDT I was the assigned attending mold unloader for this clinical encounter. For the purposes of billing, I was directly involved in the clinical decision making and the plan of care is reasonable. Please see full note below and separate attending note from today for additional details. Paris Mtat MD MPH Advanced Heart Disease & Cardiac [...] 12/04/2019 10:36 AM EDT Office of Care Management(OCM)/Employment Trainer(CM)/Discharge Planning Service: Cardiology S2 team CM Bernie Alexander,RN,BSN,MA,ACM pgr [phone] Reviewed record and in Cardiology Rounds with MD team,CMs, marketing programs specialist, UPHOLSTERY COVERS INSPECTOR. Pt is anticipated ready for d/c [...] complications include novel onset, paroxysmal atrial fibrillation [MDF0GJ2RHDA: 4] & L-sided diplopia with potential hemineglect [...] a non-culprit artery. S/P DESx3 in the nyxplskq-nf-rkktdm RCA. Aspiration thrombectomy performed, and integrellin bolus [...] complications include novel onset, paroxysmal atrial fibrillation [POD9TC3OEEN: 5] & L-sided diplopia with potential hemineglect [...] R occipital cardioembolic stroke #Paroxysmal Afib with IT4XOWJO2P score of 5 - No anticoagulation for [...] Glasgow MD PGY1, Internal Medicine Cardiology S2, #2164 I have seen the patient and reviewed [...] in my clinic. Gretchen Yoon MD Pager [phone] Derian Pascual RN - 12/03/2019 9:29 AM [...] Discharge: None Electronically signed: Derian Pascual RN, Employment Trainer Pgr: [phone] 12/03/2019 9:29 AM Gretchen Yoon [...] complications include novel onset, paroxysmal atrial fibrillation [MLQ5OZ2ONTI: 4] & L-sided diplopia with potential hemineglect [...] a non-culprit artery. S/P DESx3 in the hzvjqmnd-uj-ikygcq RCA. Aspiration thrombectomy performed, and integrellin bolus [...] complications include novel onset, paroxysmal atrial fibrillation [VCD1CA7AJEM: 5] & L-sided diplopia with potential hemineglect [...] MRI showed possible cardioembolic stroke #Afib with IV9XDCVA7T score of 5 - Stroke Team Consulted; [...] Anticoagulation/Arrhythmia # Novel Onset, Paroxsymal Atrial Fibrillation [OIF5JZ6YNFL: 5] - Hold off anticoagulation for at [...] Glasgow MD PGY1, Internal Medicine Cardiology S2, #0839 I have seen the patient and reviewed the resident's above history and I agree with the details as written. The assessment and plan were formulated in discussion with me and I agree with them as documented. Gretchen Yoon MD Pager [phone] Raul Hein RN - 12/03/2019 5:55 AM [...] Negative mcL Appearance UA Clear Clear Spec [place] UA 1.026 1.006 - 1.030 Color UA [...] PGY3 Neurology Resident 12/01/2019 Vascular Neurology Pager [phone] Neurology Attending Attestation I evaluated the patient [...] diet as medical provider deems appropriate. Consider [employer] consult for full evaluation and diet recommendations. [...] complications include novel onset, paroxysmal atrial fibrillation [FUH0ZZ3BZGB: 4] & L-sided diplopia with potential hemineglect [...] a non-culprit artery. S/P DESx3 in the fprfldoc-mo-rlskno RCA. Aspiration thrombectomy performed, and integrellin bolus [...] complications include novel onset, paroxysmal atrial fibrillation [LZD9SR3XMHM: 5] & L-sided diplopia with potential hemineglect [...] Anticoagulation/Arrhythmia # Novel Onset, Paroxsymal Atrial Fibrillation [DWR4NU6DQQK: 5] - Hold off anticoagulation - pending [...] Glasgow MD PGY1, Internal Medicine Cardiology S2, #7860 I have seen the patient and reviewed [...] the ICU team. Gretchen Yoon MD Pager [phone] Natalia Claros APRN - 12/02/2019 8:38 AM [...] - We are signing off. Please page [phone] with any questions or concerns. For questions please call NSGY pager [phone] Natalia Claros APRN 12/02/2019 8:38 AM Clinical Documentation Improvement: Active Hospital Problems Diagnosis ??? Acute ST elevation myocardial infarction (STEMI) of inferior wall ??? Intracranial hemorrhage ??? Hyperlipidemia ??? Tobacco abuse ??? Claudication from peripheral vascular disease, left Resolved Hospital Problems No resolved problems to display. Tello Hsu, INTERLOCKING AND SIGNAL MECHANIC - 12/02/2019 2:06 AM EDT 12/01/192009 Oxygen [...] Scan in afternoon. Upon arrival back in [facility] placed on low flow [...] complications include novel onset, paroxysmal atrial fibrillation [WLK8UB4TQJF: 4] & L-sided diplopia with potential hemineglect for which CVA evaluationto be pursued. Active Problems/Subjective: - 11/28: admitted for inferior STEMI, RV failure requiring pressor - got lytics, aspirin and plavix load, heparin gtt, and eptifibatide. 3 MACARIO stents to RCA. [place] cath - low wedge & CVP so [...] a non-culprit artery. S/P DESx3 in the oqjefgkg-ql-rhzswg RCA. Aspiration thrombectomy performed, and integrellin bolus [...] complications include novel onset, paroxysmal atrial fibrillation [VTE3GL6NUNU: 4] & L-sided diplopia with potential hemineglect [...] Anticoagulation/Arrhythmia # Novel Onset, Paroxsymal Atrial Fibrillation [FVS9VW5SJQB: 4] - Obtain: TTE - Pending CVA [...] MD, PGY1 PGY3, Internal Medicine Cardiology S2, #5410 I have [...] down the line. Gretchen Yoon MD Pager [phone] ?? Gretchen Yoon MD Pager [phone] Natalia Claros APRN - 12/01/2019 1:33 AM [...] per primary team For questions please call Kabongo pager [phone] Natalia Claros APRN 12/01/2019 7:42 AM Clinical Documentation Improvement: Active Hospital Problems Diagnosis ??? Acute ST elevation myocardial infarction (STEMI) of inferior wall ??? Intracranial hemorrhage ??? Hyperlipidemia ??? Tobacco abuse ??? Claudication from peripheral vascular disease, left Resolved Hospital Problems No resolved problems to display. Tello Hsu, INTERLOCKING AND SIGNAL MECHANIC - 11/30/2019 8:44 PM EDT Respiratory Therapy [...] EDT Narrative:Visited in response to request for Road Production General Manager services. Pt was awake, alert, oriented and in bed. Assessment:Patient coping positively with stresses of illness/hospitalization at this time. Pt says that he is hoping to get better and pt is living with and has children and grandchildren. Pt haspurpose of life and has reason to get getter and to be with family. Outcome: Provided emotional and spiritual support and encouraging presence. Road Production General Manager services accepted.Conversation to build trusting relationship.Provided [...] complications include novel onset, paroxysmal atrial fibrillation [MRK6BE9CZGX: 4] & L-sided diplopia with potential hemineglect for which CVA evaluationto be pursued. Active Problems/Subjective: - Overnight, CVP < 12 for which a total of 1 L IVF provided - Today AM, patient complains of subjectively reported, left-sided hemineglect with floaters and diplopia [see: exam]. - Otherwise, c/o neck pain 2/2 R IJ [place] & L radial A line. Otherwise, denies [...] a non-culprit artery. S/P DESx3 in the aikthwdn-sx-nhftjh RCA. Aspiration thrombectomy performed, and integrellin bolus [...] complications include novel onset, paroxysmal atrial fibrillation [FLA7BX3ERTK: 4] & L-sided diplopia with potential hemineglect [...] Anticoagulation/Arrhythmia # Novel Onset, Paroxsymal Atrial Fibrillation [UIP5PC0FDQD: 4] - Obtain: TTE to confirm rhythm [...] MD, PGY3 PGY3, Internal Medicine Cardiology S2, #1390 I have seen the patient and reviewed [...] down the line. Gretchen Yoon MD Pager [phone] Paola Capps RN - 11/30/2019 6:57 AM EDT PT still requiring 4 of levo, several attempts to titrate down (maps in 70;s) But maps would drop toless than 65. Pt very restless in bed Raising and lowering head denies pain . Integrillin stopped [id number] when bottle complete , urine tea colored [...] PCP: France Lam MD PCP phone #: [phone] Machine Stemmer: None ID/Chief Complaint: Chest pain History of [...] up to 10mcg/min. He was transferred to [facility] after the cath procedure. Bedside RHC showed CI 2.12, PAWP 11, PAP 38/15 indicating hypovolemic state. He received 1L bolus of NS with improvement of his blood pressure to 124/61. History of PAD, HLD - had side reactions to statins - so taking niacin and red rye grain. Chronic active smoker with more than 65 pack years. Family history of CO in father and two uncles. He's takingbaby [...] ??? Penicillins Pt doesn't remember reaction ??? Svinplz-Pzb-Zdp Reductase Inhibitors Stiff neck, upset stomach, back pain Family History: Mother: Father: CO 2 Uncles with MIs Social History: Tobacco: Current active smoker 1 ppd. 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 Vitals: Last value Range last [...] in the last 7068 hours. Invalid input(s): GYHGHKUOEKG0V Heme: No results for input(s): LDH, HAPTOGLOBIN, [...] Admit to Cardiology, S2 Team Pager # [phone] #Inferior STEMI, LEYLA [phone] - Resolving EKG [...] with MACARIO x3. Gretchen Yoon MD Pager [phone] documented in this encounter Procedure Notes Juventino [...] to the planned procedure. Hand Hygiene: The regulator pin inserter did perform hand hygiene prior to [...] a suspected line-associated infection. Location of Procedure: [facility] Risks and Benefits: The [...] to the planned procedure. Hand Hygiene: The regulator pin inserter did perform hand hygiene prior to [...] side:right An Introducer (PSI Kit) was used. [place]. Insertion Side: right. Insertion Site: internal jugular. Catheter Details: Number of Lumens: 1 Catheter Type: heparin-coated The line was placed over a guidewire. Confirmation of Venous Placement: Venous placement was confirmed by transducing the pressure. Introducer Insertion Attempts: 1 Comments: Floating the [place] Catheter Attempts: 1 Comments: Sterile Dressing: Biopatch [...] -- Mental Status -- Score -- OTHER Byeer Fall Risk -- Restraint Interventions Safety Promotion/Fall [...] better pt back in SR. Please page [phone] for any more cares or concerns Plan [...] complications include novel onset, paroxysmal atrial fibrillation [[id number]: 5]& L-sided diplopia with potential hemineglect for [...] Total Evaluation Minutes, Occupational Therapy: 10 Pager: [phone] RFANCINE Nuñez Occupational Therapy Rehabilitation Department Plan of [...] complications include novel onset, paroxysmal atrial fibrillation [[id number]: 5] & L-sided diplopia with potential hemineglect [...] hand rails). Baseline Mobility: Independent. Drives. 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 Time IN / OUT: 7748-5640 Total Evaluation Minutes, Physical Therapy: 15(gtx1) Barbara Baldwin, PT Pager: [phone] Physical Therapy Inpatient Rehabilitation Department Plan of Care - Tyrno Callejas RN - 12/03/2019 5:45 PM EDT [...] he receives all he needs through the [facility]. Consult refused. Romain Tran, MSN, RN-, [facility] Tobacco Public Relations Specialist [facility] Pager #[phone] Plan of Care - Romain Oglesby OT [...] complications include novel onset, paroxysmal atrial fibrillation [[id number]: 5] & L-sided diplopia with potential hemineglect [...] and measurable assessment of functional outcome. Pager: [phone] ROMAIN OGLESBY OT 12/03/2019 Occupational Therapy Rehabilitation [...] an outpatient cardiac rehabilitation program at [facility] was discussed. Patient agrees to a referral to this program. His has been a cardiac rehab patient at [facility] and he is familiar with the program. [...] complications include novel onset, paroxysmal atrial fibrillation [[id number]: 5] & L-sided diplopia with potential hemineglect [...] hand rails). Baseline Mobility: Independent. Drives. 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 Time IN / OUT: 6986-1020 Total Evaluation Minutes, Physical Therapy: 25(eval, gtx1) Barbara Baldwin, PT Pager: [phone] Physical Therapy Inpatient Rehabilitation Department Consult Note [...] Please contact JOHANNA NOBLES RN on pager [phone] or the wound care team at [phone] or pager [phone] skin and wound care concerns or questions. [...] Salinas would be surrogate decision maker per [place] surrogate decision making law. Any patient receiving carspousee at [facility] must abide by [place] law. The hierarchy for surrogate decisionmaking is: [...] (i) The agent with financial power of deputy commonwealth's attorney or a conservator appointed in accordance [...] Insurance: N/A Prescription Coverage: Yes Preferred Pharmacy: [place], [place] Other: No Primary Care Provider: France Lam MD [phone] Patient/Caregiver Goals of Treatment: Return home Potential Needs for Transition of Care: Rehab/SNF: Based on discussions with the multi-disciplinary healthcare team, the patient would benefit from SNF level of care at discharge. ?? I have met with the patient to discuss discharge planning needs. I have provided the [facility], Officeof Care Management letter from the [employer] pertaining to rehab referrals. I have also provided a letter describing our affiliations within the [facility] and educated them about their right [...] patient [facility] ?? [facility] [address] [place] [address] ?? [address] , [place] [address] Note routed to [employer] who will communicate referrals to facilities and provide any required information. Home Health: If therapies recommend home w/ VNA, the patient has been provided a list of Home Health Agencies/DME vendors which serve their preferred geographic area. A letter describing our affiliations was reviewed with them and they were educated about their right to choose where referrals are placed. Patient requests referral to [facility]. PHONE: [phone] FAX: [phone] Referral routed to the [employer] for matching with agency/vendor and to provide [...] Insured w/ Medicare. Gets medications filled at [facility] in [place], [place]. Son to transport at discharge Plan: Discharge dispo depending on patient's physical recovery; SNF vs home w/ VNA. A member of the Care Management team will continue to monitor progress, follow for continuity of care and assist with transition of care planning. Derian Pascual RN Pager: [phone] Plan of Care - Estefani Encarnacion RN [...] ??? Penicillins Pt doesn't remember reaction ??? Rgwtzne-Hjm-Xlw Reductase Inhibitors Stiff neck, upset stomach, back [...] noncontrast head CT and CT [place] at 1600 hrs. We will [...] ??? Penicillins Pt doesn't remember reaction ??? Ytbacou-Zmo-Zed Reductase Inhibitors Stiff neck, upset stomach, back [...] file Gets together: Not on file Attends anabaptist service: Not on file Active member of [...] L Elbow flexion 5/5 R, 5/5 L Blood Bank Assistant LE: 5/5 R, 5/5 L Hip [...] PGY3 Neurology Resident 11/30/2019 Vascular Neurology Pager [phone] Standard [facility] [...] diet as medical provider deems appropriate. Consider [employer] consult for full evaluation and diet recommendations. [...] hours. 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 Severe diffuse disease in the distal vessel. Discrete LCX stenosis in a non-culprit artery. S/P DESx3 in the wyzqlord-so-sxbmln RCA. Aspiration thrombectomy performed, and integrellin bolus [...] are i n the results section. CT [place] W STAT 11/30/2019 4:36 Res [...] - 5.0 [facility] mmol/L [facility] LABORATORY Comment: Please note: ??Patients with [...] Organization Address City/State/[place] [address] (ABNORMAL) Hemogram (12/08/2019 12:39 PM EDT) Analysis Performed At Patho logist Time Signature WBC 9.9 (H) 4.0 - 9.5 [facility] x10(3)/[facility] LABORATORY RBC 4.51 (L) 4.58 - [place] OLIVIA 5.54 [facility] x10(6)/[facility] LABORATORY Hemoglobin 13.0 (L) 13.7 - [place] OLIVIA 16.5 gm/dL [facility]ORY Hematocrit 40.5 40.5 - [place] OLIVIA 48.5 % [facility]ORATORY MCV 89.8 82.9 - [facility] OLIVIA 93.1 [facility] LABORATORY MCH 28.8 27.5 - [place] OLIVIA 32.[address] [facility]ORATORY MCHC 32.1 32.0 - [place] OLIVIA 35.7 gm/dL [facility] Platelets 214 145 - 357 [facility] x10(3)/[facility] LABORATORY RDWSD 49.2 (H) 36.0 - [place] OLIVIA 45.0 [facility] LABORATORY RDWCV 15.1 (H) 11.4 - [employer] 13.8 % [facility] LABORATORY MPV 12.1 7.6 - 12.9 [facility] OLIVIA [facility] LABORATORY nRBC % Auto 0.0 % [facility] LABORATORY nRBC Abs Auto 0.000 0.000 - [facility] [employer] 0.000 [facility] x10(3)/[facility] LABORATORY Specimen Anatomical Collection Method Collection Time Receive d Time (Source) Location / / Volume Laterality Blood specimen 12/08/2019 12:39 0 (specimen) PM EDT 12:47 PM EDT Resulting Agency Comment Spec In Lab Gretchen Yoon MD HEMATOLOGY ORDERABLES Performing Organization Address City/State/ZIP Code Phon e Number [address] Hepatic Function Panel (12/08/2019 6:28 AM EDT) athologist Signature Total Protein 6.6 6.1 - 8.0 [place] OLIVIA gm/dL [facility] Albumin 3.2 3.2 - 5.2 [place] OL[place] gm/dL [facility] AST 18 0 - 39 [place] OLIV[place] unit/L [facility] ALT 13 0 - 55 [facility] OLIVIA unit/L [facility] Alk Phos 64 40 - 130 [facility] OLIVIA unit/L [facility] Total 0.4 0.2 - 1.3 [place] OL[place] Bilirubin mg/dL [facility] Bili, Direct 0.1 0.0 - 0.3 [facility] OLIVIA mg/dL [facility]OR[facility]ORY Specimen Anatomical Collection Method Collection Time Receive d Time (Source) Location / / Volume Laterality Blood specimen Venous Draw / 12/08/2019 6:28 AM 2019 6:36 (specimen) Unknown EDT AM EDT Resulting Agency Comment Spec In Lab Riki Stevens MD CHEMISTRY ORDERABLES Performing Organization Address City/[facility]/ZIP Code Phon e Number [address] (ABNORMAL) TSH (12/08/2019 6:28 AM EDT) athologist Signature TSH 5.27 (H) 0.27 - 4.20 [facility] mcIU/mL [facility] LABORATORY Specimen Anatomical Collection Method Collection Time Receive d Time (Source) Location / / Volume Laterality Blood specimen Venous Draw / 12/08/2019 6:28 AM 2019 6:36 (specimen) Unknown EDT AM EDT Resulting Agency Comment Spec In Lab Darrell Glasgow MD CHEMISTRY ORDERABLES Performing Organization Address City/[facility]/ZIP Code Phon e Number [address] Potassium (12/08/2019 6:28 AM EDT) P athologist Signature Potassium 4.2 3.5 - 5.0 [facility] mmol/L [facility] Comment: Please note: ??Patients with [...] Organization Address City/State/[place] [address] (ABNORMAL) Differential, Automated (12/08/2019 12:43 AM EDT) Patholo gist Method Time Signature Neutrophils % 60.7 % [facility] LABORATORY Neutr Abs (ANC) 6.81 (H) 1.70 - [facility] 6.10 [facility] x10(3)/[facility] LABORATORY Lymphocytes % 23.4 % [facility] LABORATORY Lymphocytes Abs 2.6 0.9 - 3.2 [facility] x10(3)/[facility] LABORATORY Monocytes % 10.0 % [facility] LABORATORY Monocyte Abs 1.1 (H) 0.3 - 0.9 [facility] x10(3)/[facility] LABORATORY Eosinophils % 3.7 % [facility] LABORATORY Eosinophils Abs 0.4 0.0 - 0.4 [facility] x10(3)/[facility] LABORATORY Basophils % 1.2 % [facility] LABORATORY Basophils Abs 0.1 0.0 - 0.1 [facility] x10(3)/[facility] LABORATORY Immature Gran % 1.00 % [...] Gran Abs 0.11 (H) 0.00 - 0.04 x10(3)/[facility] LABORATORY Specimen Anatomical Collection Method Collection Time Receive d Time (Source) Location / / Volume Laterality Blood specimen 12/08/2019 12:43 0 (specimen) AM EDT 12:52 AM EDT Resulting Agency Comment Spec In Lab Riki Stevens MD HEMATOLOGY ORDERABLES Performing Organization Address City/State/[place] [address] (ABNORMAL) Hemogram (12/08/2019 12:43 AM EDT) Analysis Performed At Patho logist Time Signature WBC 11.2 (H) 4.0 - 9.5 [facility] x10(3)/[facility] LABORATORY RBC 4.46 (L) 4.58 - [facility] OLIVIA 5.54 [facility] x10(6)/[facility] LABORATORY Hemoglobin 13.1 (L) 13.7 - [facility] 16.5 gm/dL [facility] LABORATORY Hematocrit 40.5 40.5 - [facility] OLIVIA 48.5 % [facility] LABORATORY MCV 90.8 82.9 - [facility] 93.1 [facility] LABORATORY MCH 29.4 27.5 - [facility] OLIVIA 32.[address] [facility] LABORATORY MCHC 32.3 32.0 - [facility] OLIVIA 35.7 gm/dL [facility] LABORATORY Platelets 215 145 - 357 [facility] x10(3)/[facility] LABORATORY RDWSD 49.8 (H) 36.0 - [facility] OLIVIA 45.0 [facility] LABORATORY RDWCV 15.2 (H) 11.4 - [facility] OLIVIA 13.8 % [facility] LABORATORY MPV 12.3 7.6 - 12.9 [facility] LABORATORY nRBC % Auto 0.0 % [facility] LABORATORY nRBC Abs Auto 0.000 0.000 - [facility] [employer] 0.000 [facility] x10(3)/[facility] LABORATORY Specimen Anatomical Collection Method Collection Time Receive d Time (Source) Location / / Volume Laterality Blood specimen 12/08/2019 12:43 0 (specimen) AM EDT 12:52 AM EDT Resulting Agency Comment Spec In Lab Riki Stevens MD HEMATOLOGY ORDERABLES Performing Organization Address City/State/ZIP Code Phon e Number [address] Magnesium (12/08/2019 12:43 AM EDT) athologist Signature Magnesium 1.01 0.69 - 1.07 [facility] mmol/L [facility] LABORATORY Specimen Anatomical Collection Method Collection Time Receive d Time (Source) Location / / Volume Laterality Blood specimen 12/08/2019 12:43 0 (specimen) AM EDT 12:52 AM EDT Resulting Agency Comment Spec In Lab Gretchen Yoon MD CHEMISTRY ORDERABLES Performing Organization Address City/State/[place] [address] (ABNORMAL) BMP w/fasting Glucose (12/08/2019 12:43 AM EDT) P athologist Signature Glucose 106 (H) 65 - 99 [facility] Fasting mg/dL [facility] Comment: ?Fasting* Glucose Interpretive C [...] Mellitus, Position Statement from the [place] [employer]. ??Diabete s Care, Volume 33, Supplement 1, Jul 2009 BUN 14 10 - 20 mg/dL [facility] LABORATORY Creatinine 1.16 0.80 - 1.50 mg/dL [facility] LABORATORY Sodium 134 (L) 135 - [...] of body mass or the acutely ill. http://[employer]/[facility]AL[facility]kf eGFR 72 >=60 mL/min/1.73 m?? [facility] LABORATORY Comment: The eGFR was calculated using the CKD-EP I equation. As with all creatinine based estimates of kidney function, eGFR values calculated with the CKD-EPI equation are not accurate in patients wi th acute kidney failure, extremes of body mass or the acutely ill. http://[employer]/[facility]AL[facility]kf Specimen Anatomical Collection Method Collection Time Receive d Time (Source) Location / / Volume Laterality Blood specimen 12/08/2019 12:43 0 (specimen) AM EDT 12:52 AM EDT Resulting Agency Comment Spec In Lab Gretchen Yoon MD CHEMISTRY ORDERABLES Performing Organization Address City/State/[place] [address] Heparin (unfractionated) Level (12/08/2019 12:43 AM EDT) athologist Signature Heparin UFH 0.60 IU/mL [facility] Comment: Guidelines for therapeutic unfractionate [...] Organization Address City/State/[place] [address] Potassium (12/07/2019 8:39 PM EDT) athologist Signature Potassium 4.1 3.5 - 5.0 [facility] mmol/L [facility] Comment: Please note: ??Patients with [...] Lagos MD CHEMISTRY ORDERABLES Performing Organization Address City/[facility]/[place] [address] Potassium (12/07/2019 4:02 PM EDT) P athologist Signature Potassium 4.0 3.5 - 5.0 [place] OLIVIA mmol/L [facility] Comment: Please note: ??Patients with [...] Yoon MD CHEMISTRY ORDERABLES Performing Organization Address City/[facility]/[place] [address] (ABNORMAL) Hemogram (12/07/2019 4:02 PM EDT) Analysis Performed At Patho logist Time Signature WBC 17.4 (H) 4.0 - 9.5 [place] OLIVIA x10(3)/[facility] LABORATORY RBC 4.58 4.58 - [place] OLIVIA 5.54 [facility] x10(6)/[facility] LABORATORY Hemoglobin 13.5 (L) 13.7 - [place] OLIVIA 16.5 gm/dL [facility] LABORATORY Hematocrit 40.8 40.5 - [place] OLIVIA 48.5 % [facility] LABORATORY MCV 89.1 82.9 - [place] OLIVIA 93.1 [facility] LABORATORY MCH 29.5 27.5 - [place] OLIVIA 32.[address] [facility] LABORATORY MCHC 33.1 32.0 - [place] OLIVIA 35.7 gm/dL [facility] LABORATORY Platelets 238 145 - 357 [place] OLIVIA x10(3)/[facility] LABORATORY RDWSD 48.8 (H) 36.0 - [place] OLIVIA 45.0 [facility] LABORATORY RDWCV 15.0 (H) 11.4 - [facility] 13.8 % [facility] LABORATORY MPV 12.2 7.6 - 12.9 [facility] LABORATORY nRBC % Auto 0.0 % [facility] LABORATORY nRBC Abs Auto 0.000 0.000 - MELINA MARSHOLIVIA 0.000 [facility] x10(3)/[facility] LABORATORY Specimen Anatomical Collection Method Collection Time Receive d Time (Source) Location / / Volume Laterality Blood specimen 12/07/2019 4:02 PM 020 4:08 (specimen) EDT PM EDT Resulting Agency Comment Spec In Lab Gretchen Yoon MD HEMATOLOGY ORDERABLES Performing Organization Address City/[facility] [place] [address] EKG 12 Lead (12/07/2019 [...] (Bezet) Calculated P -12 degrees MUSE SYSTEM Leslie Calculated R 10 degrees MUSE SYSTEM Leslie Calculated T -138 degrees MUSE SYSTEM Leslie INTERPRETATION Supraventricular tachycardia MUSE SYSTEM Low voltage [...] - 5.0 [facility] mmol/L [facility]ORY Comment: Please note: ??Patients with [...] Lagos MD CHEMISTRY ORDERABLES Performing Organization Address City/[facility] [place] [address] Heparin (unfractionated) Level (12/07/2019 [...] Lagos MD HEMATOLOGY ORDERABLES Performing Organization Address [facility]/[place]IP [place] [address] Heparin (unfractionated) Level (12/07/2019 [...] Organization Address City/State/[place] [address] (ABNORMAL) Differential, Automated (12/07/2019 5:20 AM EDT) Patholo gist Method Time Signature Neutrophils % 62.4 % [facility] LABORATORY Neutr Abs (ANC) 5.46 1.70 - [facility] 6.10 [facility] x10(3)/[facility] LABORATORY Lymphocytes % 20.3 % [facility] LABORATORY Lymphocytes Abs 1.8 0.9 - 3.2 [facility] x10(3)/[facility] LABORATORY Monocytes % 11.0 % [facility] LABORATORY Monocyte Abs 1.0 (H) 0.3 - 0.9 [facility] x10(3)/[facility] LABORATORY Eosinophils % 4.5 % [facility] LABORATORY Eosinophils Abs 0.4 0.0 - 0.4 [facility] x10(3)/[facility] LABORATORY Basophils % 0.9 % [facility] LABORATORY Basophils Abs 0.1 0.0 - 0.1 [facility] x10(3)/[facility] LABORATORY Immature Gran % 0.90 % BARRE [...] Gran Abs 0.08 (H) 0.00 - 0.04 x10(3)/[facility] LABORATORY Specimen Anatomical Collection Method Collection Time Receive d Time (Source) Location / / Volume Laterality Blood specimen 12/07/2019 5:20 AM 020 5:37 (specimen) EDT AM EDT Resulting Agency Comment Spec In Lab Riki Stevens MD HEMATOLOGY ORDERABLES Performing Organization Address City/State/ZIP Code Phon e Number [place] [id number] (ABNORMAL) Hemogram (12/07/2019 5:20 AM EDT) Analysis Performed At Patho logist Time Signature WBC 8.7 4.0 - 9.5 [facility] x10(3)/[facility] LABORATORY RBC 4.20 (L) 4.58 - [facility] 5.54 [facility] x10(6)/[facility] LABORATORY Hemoglobin 12.3 (L) 13.7 - [facility] 16.5 gm/dL [facility] LABORATORY Hematocrit 37.4 (L) 40.5 - [facility] 48.5 % [facility] LABORATORY MCV 89.0 82.9 - [facility] [facility] LABORATORY MCH 29.3 27.5 - [facility] 32.[address] [facility] LABORATORY MCHC 32.9 32.0 - MELINA MONAE 35.7 gm/dL [facility] LABORATORY Platelets 181 145 - 357 MELINA MONAE x10(3)/[facility] LABORATORY RDWSD 47.7 (H) 36.0 - MELINA MONAE 45.0 [facility] LABORATORY RDWCV 14.8 (H) 11.4 - [facility] OLIVIA 13.8 % [facility] LABORATORY MPV 12.3 7.6 - 12.9 M[place] OLIVIA [facility] LABORATORY nRBC % Auto 0.0 % [facility] LABORATORY nRBC Abs Auto 0.000 0.000 - MELINA MONAE 0.000 [facility] x10(3)/[facility] LABORATORY Specimen Anatomical Collection Method Collection Time Receive d Time (Source) Location / / Volume Laterality Blood specimen 12/07/2019 5:20 AM 020 5:37 (specimen) EDT AM EDT Resulting Agency Comment Spec In Lab Riki Stevens MD HEMATOLOGY ORDERABLES Performing Organization Address City/State/ZIP Code Phon e Number [address] Magnesium (12/07/2019 5:20 AM EDT) P athologist Signature Magnesium 0.89 0.69 - 1.07 [facility] mmol/L [facility] LABORATORY Specimen Anatomical Collection Method Collection Time Receive d Time (Source) Location / / Volume Laterality Blood specimen 12/07/2019 5:20 AM 020 5:37 (specimen) EDT AM EDT Resulting Agency Comment Spec In Lab Gretchen Yoon MD CHEMISTRY ORDERABLES Performing Organization Address City/State/ZIP Code Phon e Number [address] LABORATORY Drive (ABNORMAL) BMP w/fasting Glucose (12/07/2019 5:20 AM EDT) P athologist Signature Glucose 100 (H) 65 - 99 [facility] Fasting mg/dL [facility] Comment: ?Fasting* Glucose Interpretive C [...] Mellitus, Position Statement from the [place] Diabetes Association. ??Diabete s Care, Volume 33, Supplement 1, Jul 2009 BUN 14 10 - 20 mg/dL [facility] Creatinine 0.83 0.80 - 1.50 mg/dL [facility] Sodium 135 135 - 145 [...] of body mass or the acutely ill. [email or web address]://Link [email or web address] eGFR 101 >=60 mL/min/1.73 m?? [facility] Comment: The eGFR was calculated using the CKD-EP I equation. As with all creatinine based estimates of kidney function, eGFR values calculated with the CKD-EPI equation are not accurate in patients wi th acute kidney failure, extremes of body mass or the acutely ill. [email or web address] Specimen Anatomical Collection Method Collection Time Receive d Time (Source) Location / / Volume Laterality Blood specimen 12/07/2019 5:20 AM 020 5:37 (specimen) EDT AM EDT Resulting Agency Comment Spec In Lab Gretchen Yoon MD CHEMISTRY ORDERABLES Performing Organization Address City/[facility] [place] [address] Heparin (unfractionated) Level (12/06/2019 [...] Lagos MD HEMATOLOGY ORDERABLES Performing Organization Address City/[facility]/[place]IP [place] [address] Head wo Contrast [...] For questions regarding this report, please contact [facility] number below. ? Narrative 12/06/2019 10:06 [...] Signature WBC 10.4 (H) 4.0 - 9.5 [facility] x10(3)/[facility] LABORATORY RBC 4.32 (L) 4.58 - [facility] 5.54 [facility] x10(6)/[facility] LABORATORY Hemoglobin 12.5 (L) 13.7 - [facility] 16.5 gm/dL [facility] Hematocrit 38.4 (L) 40.5 - [facility] 48.5 % [facility] MCV 88.9 82.9 - [facility] 93.1 [facility] LABORATORY MCH 28.9 27.5 - [place] 32.[address] [facility] MCHC 32.6 32.0 - [facility] 35.7 gm/dL [facility] Platelets 194 145 - 357 [facility] x10(3)/[facility] LABORATORY RDWSD 46.9 (H) 36.0 - [facility] 45.0 [facility] LABORATORY RDWCV 14.6 (H) 11.4 - [facility] 13.8 % [facility] MPV 11.9 7.6 - 12.9 [facility] LABORATORY nRBC % Auto 0.0 % [facility] nRBC Abs Auto 0.000 0.000 - [facility] 0.000 [facility] x10(3)/[facility] LABORATORY Specimen Anatomical Collection Method Collection Time Receive d Time (Source) Location / / Volume Laterality Blood specimen 12/06/2019 4:20 PM 020 4:31 (specimen) EDT PM EDT Resulting Agency Comment Spec In Lab Gretchen Yoon MD HEMATOLOGY ORDERABLES Performing Organization Address City/State/[place] [address] Heparin (unfractionated) Level (12/06/2019 [...] Organization Address City/State/[place] [address] Heparin (unfractionated) Level (12/06/2019 [...] Organization Address City/State/ZIP Code Phon e Number [address] Magnesium (12/06/2019 3:36 AM EDT) P athologist Signature Magnesium 0.86 0.69 - 1.07 [facility] mmol/L [facility] Specimen Anatomical Collection Method Collection Time Receive d Time (Source) Location / / Volume Laterality Blood specimen 12/06/2019 3:36 AM 020 3:45 (specimen) EDT AM EDT Resulting Agency Comment Spec In Lab Gretchen Yoon MD CHEMISTRY ORDERABLES Performing Organization Address City/State/Z[place] [address] (ABNORMAL) BMP w/fasting Glucose (12/06/2019 3:36 AM EDT) P athologist Signature Glucose 103 (H) 65 - 99 [facility] Fasting mg/dL [facility] Comment: ?Fasting* Glucose Interpretive C [...] Mellitus, Position Statement from the [place] Diabetes Association. ??Diabete s Care, Volume 33, Supplement 1, Jul 2009 BUN 20 10 - 20 mg/dL [facility] Creatinine 0.88 0.80 - 1.50 mg/dL [facility] Sodium 136 135 - 145 [...] of body mass or the acutely ill. http://Link Medicine/[facility] BUFFALOnkf eGFR 99 >=60 mL/min/1.73 m?? [facility] Comment: The eGFR was calculated using the CKD-EP I equation. As with all creatinine based estimates of kidney function, eGFR values calculated with the CKD-EPI equation are not accurate in patients wi th acute kidney failure, extremes of body mass or the acutely ill. http://Link Medicine/[facility] BUFFALOnkf Specimen Anatomical Collection Method Collection Time Receive d Time (Source) Location / / Volume Laterality Blood specimen 12/06/2019 3:36 AM 020 3:45 (specimen) EDT AM EDT Resulting Agency Comment Spec In Lab Gretchen Yoon MD CHEMISTRY ORDERABLES Performing Organization Address City/State/[place] [address] (ABNORMAL) Hemogram (12/06/2019 3:36 AM EDT) Analysis Performed At Patho logist Time Signature WBC 9.2 4.0 - 9.5 [facility] x10(3[facility] LABORATORY RBC 3.99 (L) 4.58 - [place] 5.54 [facility] x10(6)/[facility] LABORATORY Hemoglobin 11.9 (L) 13.7 - [place] 16.5 gm/dL [facility] Hematocrit 35.5 (L) 40.5 - [facility] 48.5 % [facility] MCV 89.0 82.9 - [facility] 93.1 [facility] LABORATORY MCH 29.8 27.5 - [place] 32.[address] [facility] MCHC 33.5 32.0 - [place] 35.7 gm/dL [facility] Platelets 164 145 - 357 [facility] x10(3)/[facility] LABORATORY RDWSD 47.6 (H) 36.0 - [place] 45.0 [facility] LABORATORY RDWCV 14.7 (H) 11.4 - [facility] 13.8 % [facility] MPV 11.9 7.6 - 12.9 [facility] LABORATORY nRBC % Auto 0.0 % [facility] nRBC Abs Auto 0.000 0.000 - [place] 0.000 [facility] x10(3)/[facility] LABORATORY Specimen Anatomical Collection Method Collection Time Receive d Time (Source) Location / / Volume Laterality Blood specimen 12/06/2019 3:36 AM 020 3:45 (specimen) EDT AM EDT Resulting Agency Comment Spec In Lab Gretchen Yoon MD HEMATOLOGY ORDERABLES Performing Organization Address City/[facility]/[place] [address] (ABNORMAL) Differential, Automated (12/05/2019 10:52 PM EDT) [facility] Method Time Signature Neutrophils % 61.9 % [facility] Neutr Abs (ANC) 6.02 1.70 - [facility] 6.10 [facility] x10(3)/[facility] LABORATORY Lymphocytes % 22.4 % [facility] Lymphocytes Abs 2.2 0.9 - 3.2 [facility] x10(3)/[facility] LABORATORY Monocytes % 10.4 % [facility] Monocyte Abs 1.0 (H) 0.3 - 0.9 [facility] x10(3)/[facility] LABORATORY Eosinophils % 4.1 % [facility] Eosinophils Abs 0.4 0.0 - 0.4 [facility] x10(3)/[facility] LABORATORY Basophils % 0.7 % [facility] Basophils Abs 0.1 0.0 - 0.1 [facility] x10(3)/[facility] LABORATORY Immature Gran % 0.50 % BARRE [...] Gran Abs 0.05 (H) 0.00 - 0.04 x10(3)/[facility] LABORATORY Specimen Anatomical Collection Method Collection Time Receive d Time (Source) Location / / Volume Laterality Blood specimen 12/05/2019 10:52 0 (specimen) PM EDT 10:59 PM EDT Resulting Agency Comment Spec In Lab Mandi Barrera MD HEMATOLOGY ORDERABLES Performing Organization Address City/State/[place] [address] (ABNORMAL) Hemogram (12/05/2019 10:52 PM EDT) Analysis Performed At [facility] logist Time Signature WBC 9.7 (H) 4.0 - 9.5 [facility] x10(3)/[facility] LABORATORY RBC 4.07 (L) 4.58 - [place] 5.54 [facility] x10(6)/[facility] LABORATORY Hemoglobin 11.9 (L) 13.7 - [place] 16.5 gm/dL [facility] Hematocrit 36.4 (L) 40.5 - [place] 48.5 % [facility] MCV 89.4 82.9 - [facility] 93.1 [facility] LABORATORY MCH 29.2 27.5 - [place] 32.[address] [facility] MCHC 32.7 32.0 - [place] 35.7 gm/dL [facility] Platelets 167 145 - 357 [facility] x10(3)/[facility] LABORATORY RDWSD 47.7 (H) 36.0 - [place] 45.0 [facility] RDWCV 14.6 (H) 11.4 - [facility] 13.8 % [facility] MPV 12.1 7.6 - 12.9 [facility] LABORATORY nRBC % Auto 0.0 % [facility] nRBC Abs Auto 0.000 0.000 - [facility] 0.000 [facility] x10(3)/[facility] LABORATORY Specimen Anatomical Collection Method Collection Time Receive d Time (Source) Location / / Volume Laterality Blood specimen 12/05/2019 10:52 0 (specimen) PM EDT 10:59 PM EDT Resulting Agency Comment Spec In Lab Mandi Barrera MD HEMATOLOGY ORDERABLES Performing Organization Address City/State/[place] [address] Heparin (unfractionated) Level (12/05/2019 [...] Organization Address City/State/[place] [address] MRI Brain wwo Contrast [...] - 9.5 [facility] x10(3)/[facility] LABORATORY RBC 4.17 (L) 4.58 - [facility] 5.54 [facility] x10(6)/[facility] LABORATORY Hemoglobin 12.4 (L) 13.7 - [facility] 16.5 gm/dL [facility] Hematocrit 37.0 (L) 40.5 - [facility] 48.5 % [facility] MCV 88.7 82.9 - [facility] 93.1 [facility] LABORATORY MCH 29.7 27.5 - [facility] 32.[address] [facility] MCHC 33.5 32.0 - [facility] 35.7 gm/dL [facility] Platelets 173 145 - 357 [facility] x10(3)/[facility] LABORATORY RDWSD 47.3 (H) 36.0 - [facility] 45.0 [facility] LABORATORY RDWCV 14.6 (H) 11.4 - [facility] 13.8 % [facility] MPV 12.1 7.6 - 12.9 [facility] LABORATORY nRBC % Auto 0.0 % [facility] nRBC Abs Auto 0.000 0.000 - [facility] 0.000 [facility] x10(3)/[facility] LABORATORY Specimen Anatomical Collection Method Collection Time Receive d Time (Source) Location / / Volume Laterality Blood specimen 12/05/2019 1:00 PM 020 1:13 (specimen) EDT PM EDT Resulting Agency Comment Spec In Lab Gretchen Yoon MD HEMATOLOGY ORDERABLES Performing Organization Address City/State/[place] [address] EKG 12 Lead (12/05/2019 10:52 AM EDT) Component Value Ref Range Test Analysis Performed Pathologis t Method Time At Signature Ventricular rate 72 BPM MUSE SYSTEM Atrial Rate 72 BPM MUSE SYSTEM P-R Interval 138 ms MUSE SYSTEM QRS Duration 96 ms MUSE SYSTEM Q-T Interval 396 ms MUSE SYSTEM QTC Calculated 433 ms MUSE SYSTEM (Bezet) Calculated P Leslie 65 degrees MUSE SYSTEM Calculated R Leslie 13 degrees MUSE SYSTEM Calculated T Leslie 0 degrees MUSE SYSTEM INTERPRETATION Sinus rhythm Occasional Premature ventricular complexe s MUSE SYSTEM Possible Inferior infarct (cited on or before 29-NOV-2019) Abnormal ECG When compared with ECG of 04-DEC-2019 10:43, Sinus rhythm has replaced Atrial fibrillation Vent. rate has decreased BY ??86 BPM Confirmed by MD Ceja Daniel ([id number]) on 12/05/2019 3:55:22 PM Specimen Anatomical Collection Method Collection Time Receive d Time (Source) Location / / Volume Laterality 12/05/2019 10:52 12/05/2019 3:55 AM EDT PM EDT Paris Lagos MD ECG ORDERABLES Performing Organization Address City/State/ZIP Code Phon e Number MUSE SYSTEM Duplex Study for DVT, Bilat legs (12/05/2019 7:00 AM EDT) Component Value Ref Test Analysis Performed At [facility] Range Method Time Signature VB Text Department: Vascular Surgery Lab VASCUBASE Report Patient: [id number] (ANGEL LUIS SALINAS) CPT: 51360 ICD10: I26.99 Referring Physician: GRETCHEN YOON ?? [...] - 1.07 [facility] mmol/L [facility] Specimen Anatomical Collection Method Collection Time Receive d Time (Source) Location / / Volume Laterality Blood specimen 12/05/2019 4:18 AM 020 4:31 (specimen) EDT AM EDT Resulting Agency Comment Spec In Lab Gretchen Yoon MD CHEMISTRY ORDERABLES Performing Organization Address City/[facility]/[place]IP [place] [address] (ABNORMAL) BMP w/fasting Glucose (12/05/2019 4:18 AM EDT) P athologist Signature Glucose 104 (H) 65 - 99 [facility] Fasting mg/dL [facility] Comment: ?Fasting* Glucose Interpretive C [...] Mellitus, Position Statement from the [place] Diabetes Association. ??Diabete s Care, Volume 33, Supplement 1, Jul 2009 BUN 21 (H) 10 - 20 mg/dL [facility] Creatinine 1.02 0.80 - 1.50 mg/dL [facility] Sodium 136 135 - 145 [...] of body mass or the acutely ill. http://Link Medicine/[facility] BUFFALOnkf eGFR 84 >=60 mL/min/1.73 m?? [facility] Comment: The eGFR was calculated using the CKD-EP I equation. As with all creatinine based estimates of kidney function, eGFR values calculated with the CKD-EPI equation are not accurate in patients wi th acute kidney failure, extremes of body mass or the acutely ill. http://Link Medicine/[facility] BUFFALOnkf Specimen Anatomical Collection Method Collection Time Receive d Time (Source) Location / / Volume Laterality Blood specimen 12/05/2019 4:18 AM 020 4:31 (specimen) EDT AM EDT Resulting Agency Comment Spec In Lab Gretchen Yoon MD CHEMISTRY ORDERABLES Performing Organization Address City/State/[place] [address] (ABNORMAL) Hemogram (12/05/2019 4:18 AM EDT) Analysis Performed At Patho logist Time Signature WBC 8.6 4.0 - 9.5 [facility] x10(3)/[facility] LABORATORY RBC 4.28 (L) 4.58 - [place] 5.54 [facility] x10(6)/[facility] LABORATORY Hemoglobin 12.4 (L) 13.7 - [facility] 16.5 gm/dL [facility] Hematocrit 37.3 (L) 40.5 - [facility] 48.5 % [facility] MCV 87.1 82.9 - [facility] 93.1 [facility] LABORATORY MCH 29.0 27.5 - [facility] 32.1 pg [facility] MCHC 33.2 32.0 - [facility] 35.7 gm/dL [facility] Platelets 163 145 - 357 [facility] x10(3)/[facility] LABORATORY RDWSD 46.4 (H) 36.0 - [facility]ORY RDWCV 14.4 (H) 11.4 - [facility] 13.8 % [facility] MPV 11.7 7.6 - 12.9 [facility] LABORATORY nRBC % Auto 0.0 % [facility] nRBC Abs Auto 0.000 0.000 - [facility] 0.000 [facility] x10(3)/[facility] LABORATORY Specimen Anatomical Collection Method Collection Time Receive d Time (Source) Location / / Volume Laterality Blood specimen 12/05/2019 4:18 AM 020 4:31 (specimen) EDT AM EDT Resulting Agency Comment Spec In Lab Gretchen Yoon MD HEMATOLOGY ORDERABLES Performing Organization Address City/State/[place] [address] Cardiac for Morphology [...] For questions regarding this report, please contact [facility] number below. ? Narrative 12/04/2019 6:16 [...] from neck/greatest puja meter to back wall: KYRGYZ 91, CAU 13: ??19 mm CORTES ??1, [...] from neck/greatest puja meter to back wall: KYRGYZ 91, CAU 13: 19 mm CORTES 1, [...] Time Signature WBC 8.9 4.0 - 9.5 [facility] x10(3)/[facility] LABORATORY RBC 4.69 4.58 - [facility] 5.54 [facility] x10(6)/[facility] LABORATORY Hemoglobin 13.5 (L) 13.7 - [facility] 16.5 gm/dL [facility] Hematocrit 41.7 40.5 - [facility] 48.5 % [facility] MCV 88.9 82.9 - [facility] 93[facility] [facility] MCH 28.8 27.5 - [place] 32.[address] [facility] MCHC 32.4 32.0 - [facility] 35.7 gm/dL [facility] Platelets 196 145 - 357 [facility] x10(3)/[facility] LABORATORY RDWSD 46.7 (H) 36.0 - [place] 45.0 [facility] LABORATORY RDWCV 14.5 (H) 11.4 - [place] 13.8 % [facility] LABOR[facility]ORY MPV 12.1 7.6 - 12.9 [place] MONAE [facility] LABORATORY nRBC % Auto 0.0 % [facility] nRBC Abs Auto 0.000 0.000 - [place] 0.000 [facility] x10(3)/[facility] LABORATORY Specimen Anatomical Collection Method Collection Time Receive d Time (Source) Location / / Volume Laterality Blood specimen 12/04/2019 12:55 0 1:06 (specimen) PM EDT PM EDT Resulting Agency Comment Spec In Lab Gretchen Yoon MD HEMATOLOGY ORDERABLES Performing Organization Address City/[facility]/[place] [address] EKG 12 Lead (12/04/2019 10:43 AM EDT) Component Value Ref Range Test Analysis Performed Pathologis t Method Time At Signature Ventricular rate 158 BPM MUSE SYSTEM Atrial Rate 102 BPM MUSE SYSTEM QRS Duration 92 ms MUSE SYSTEM Q-T Interval 294 ms MUSE SYSTEM QTC Calculated 476 ms MUSE SYSTEM (Bezet) Calculated R Leslie 17 degrees MUSE SYSTEM Calculated T Leslie 90 degrees MUSE SYSTEM INTERPRETATION Atrial fibrillation with rapid ventricular response MUSE SYSTEM Possible Inferior infarct (cited on or before 29-NOV-2019) Abnormal ECG When compared with ECG of 30-NOV-2019 21:07, Atrial fibrillation has replaced Sinus rhythm Vent. rate has increased BY ??65 BPM Confirmed by MD Ceja Daniel ([id number]) on 12/05/2019 8:59:44 AM Specimen Anatomical Collection Method Collection Time Receive d Time (Source) Location / / Volume Laterality 12/04/2019 10:43 12/05/2019 8:59 AM EDT AM EDT Gretchen Yoon MD ECG ORDERABLES Performing Organization Address City/State/ZIP Code Phon e Number MUSE SYSTEM (ABNORMAL) Magnesium (12/04/2019 4:28 AM EDT) P athologist Signature Magnesium 1.17 (H) 0.69 - 1.07 [facility] mmol/L [facility] Specimen Anatomical Collection Method Collection Time Receive d Time (Source) Location / / Volume Laterality Blood specimen 12/04/2019 4:28 AM 020 4:40 (specimen) EDT AM EDT Resulting Agency Comment Spec In Lab Gretchen Yoon MD CHEMISTRY ORDERABLES Performing Organization Address City/State/[place] [address] (ABNORMAL) BMP w/fasting Glucose (12/04/2019 4:28 AM EDT) athologist Signature Glucose 108 (H) 65 - 99 [facility] Fasting mg/dL [facility] Comment: ?Fasting* Glucose Interpretive C [...] Mellitus, Position Statement from the [place] Diabetes Association. ??Diabete s Care, Volume 33, Supplement 1, Jul 2009 BUN 19 10 - 20 mg/dL [facility] Creatinine 0.89 0.80 - 1.50 mg/dL [facility] Sodium 135 135 - 145 [...] of body mass or the acutely ill. http://Link Medicine/[facility] BUFFALOnk eGFR 98 >=60 mL/min/1.73 m?? [facility] Comment: The eGFR was calculated using the CKD-EP I equation. As with all creatinine based estimates of kidney function, eGFR values calculated with the CKD-EPI equation are not accurate in patients wi th acute kidney failure, extremes of body mass or the acutely ill. http://Link Medicine/[facility] BUFFALOnkf Specimen Anatomical Collection Method Collection Time Receive d Time (Source) Location / / Volume Laterality Blood specimen 12/04/2019 4:28 AM 020 4:40 (specimen) EDT AM EDT Resulting Agency Comment Spec In Lab Gretchen Yoon MD CHEMISTRY ORDERABLES Performing Organization Address City/State/Z[place] [address] (ABNORMAL) Hemogram (12/04/2019 4:28 AM EDT) Analysis Performed At Patho logist Time Signature WBC 7.8 4.0 - 9.5 [facility] x10(3)/[facility] LABORATORY RBC 4.10 (L) 4.58 - [facility] 5.54 [facility] x10(6)/[facility] LABORATORY Hemoglobin 12.0 (L) 13.7 - [facility] 16.5 gm/dL [facility] Hematocrit 36.5 (L) 40.5 - [facility] 48.5 % [facility] MCV 89.0 82.9 - [facility] 93.[address] [facility] MCH 29.3 27.5 - [place] MONEA 32.[address] [facility] MCHC 32.9 32.0 - [place] MONAE 35.7 gm/dL [facility] [facility] LABORATORY Platelets 151 145 - 357 MELINA MARSHOLIVIA x10(3)/[facility] LABORATORY RDWSD 46.9 (H) 36.0 - MELINA MONAE 45.0 [facility] LABORATORY RDWCV 14.4 (H) 11.4 - MELINA MONAE 13.8 % [facility] LABORATORY MPV 12.2 7.6 - 12.9 MELINA MONAE fL [facility] LABORATORY nRBC % Auto 0.0 % [facility] nRBC Abs Auto 0.000 0.000 - MELINA MONAE 0.000 [facility] x10(3)/[facility] LABORATORY Specimen Anatomical Collection Method Collection Time Receive d Time (Source) Location / / Volume Laterality Blood specimen 12/04/2019 4:28 AM 020 4:40 (specimen) EDT AM EDT Resulting Agency Comment Spec In Lab Gretchen Yoon MD HEMATOLOGY ORDERABLES Performing Organization Address City/[facility]/ZIP Code Phon e Number [address] Potassium (12/03/2019 7:55 PM EDT) athologist Signature Potassium 3.9 3.5 - 5.0 [facility]L [facility] LABORATORY Comment: Please note: ??Patients with [...] Organization Address City/State/ZIP Code Phon e Number [address] Potassium (12/03/2019 1:57 PM EDT) athologist Signature Potassium 3.7 3.5 - 5.0 MELINA OLIVIA mmol/L [facility] LABORATORY Comment: Please note: ??Patients with [...] Organization Address City/State/[place] [address] (ABNORMAL) Hemogram (12/03/2019 1:57 PM EDT) Analysis Performed At Patho logist Time Signature WBC 8.8 4.0 - 9.5 [employer] x10(3)/[facility] LABORATORY RBC 4.27 (L) 4.58 - MELINA OLIVIA 5.54 [facility] x10(6)/[facility] LABORATORY Hemoglobin 12.5 (L) 13.7 - MELINA OLIVIA 16.5 gm/dL [facility] LABORATORY Hematocrit 37.5 (L) 40.5 - MELINA OLIVIA 48.5 % [facility] LABORATORY MCV 87.8 82.9 - MELINA OLIVIA 93.1 [facility] LABORATORY MCH 29.3 27.5 - MELINA OLIVIA 32.[address] [facility] LABORATORY MCHC 33.3 32.0 - MELINA OLIVIA 35.7 gm/dL [facility] LABORATORY Platelets 158 145 - 357 [employer] x10(3)/[facility] LABORATORY RDWSD 46.9 (H) 36.0 - MELINA OLIVIA 45.0 [facility] LABORATORY RDWCV 14.5 (H) 11.4 - MELINA OLIVIA 13.8 % [facility] LABORATORY MPV 12.2 7.6 - 12.9 MELINA OLIVIA [facility] LABORATORY nRBC % Auto 0.0 % [facility] LABORATORY nRBC Abs Auto 0.000 0.000 - MELINA OLIVIA 0.000 [facility] x10(3)/[facility] LABORATORY Specimen Anatomical Collection Method Collection Time Receive d Time (Source) Location / / Volume Laterality Blood specimen 12/03/2019 1:57 PM 020 2:21 (specimen) EDT PM EDT Resulting Agency Comment Spec In Lab Gretchen Yoon MD HEMATOLOGY ORDERABLES Performing Organization Address City/State/ZIP Code Phon e Number [address] Magnesium (12/03/2019 4:02 AM EDT) athologist Signature Magnesium 0.79 0.69 - 1.07 [facility] mmol/L [facility] LABORATORY Specimen Anatomical Collection Method Collection Time Receive d Time (Source) Location / / Volume Laterality Blood specimen 12/03/2019 4:02 AM 020 4:16 (specimen) EDT AM EDT Resulting Agency Comment Spec In Lab Gretchen Yoon MD CHEMISTRY ORDERABLES Performing Organization Address City/State/[place] [address] (ABNORMAL) BMP w/fasting Glucose (12/03/2019 4:02 AM EDT) P athologist Signature Glucose 100 (H) 65 - 99 [facility] Fasting mg/dL [facility] LABORATORY Comment: ?Fasting* Glucose Interpretive C [...] Mellitus, Position Statement from the [place] Diabetes Association. ??Diabete s Care, Volume 33, Supplement 1, Jul 2009 BUN 17 10 - 20 mg/dL [facility] LABORATORY Creatinine 0.95 0.80 - 1.50 mg/dL [facility] LABORATORY Sodium 136 135 - 145 [...] of body mass or the acutely ill. http://Link Medicine/[facility] BUFFALOnkf eGFR 92 >=60 mL/min/1.73 m?? [facility] LABORATORY Comment: The eGFR was calculated using the CKD-EP I equation. As with all creatinine based estimates of kidney function, eGFR values calculated with the CKD-EPI equation are not accurate in patients wi th acute kidney failure, extremes of body mass or the acutely ill. http://Link Medicine/DHnkf Specimen Anatomical Collection Method Collection Time Receive d Time (Source) Location / / Volume Laterality Blood specimen 12/03/2019 4:02 AM 020 4:16 (specimen) EDT AM EDT Resulting Agency Comment Spec In Lab Gretchen Yoon MD CHEMISTRY ORDERABLES Performing Organization Address City/State/[place] [address] (ABNORMAL) Hemogram (12/03/2019 4:02 AM EDT) Analysis Performed At Patho logist Time Signature WBC 9.1 4.0 - 9.5 [facility] x10(3)/[facility] LABORATORY RBC 4.01 (L) 4.58 - [facility] 5.54 [facility] x10(6)/[facility] LABORATORY Hemoglobin 11.8 (L) 13.7 - [facility] 16.5 gm/dL [facility] LABORATORY Hematocrit 35.6 (L) 40.5 - [facility] 48.5 % [facility] LABORATORY MCV 88.8 82.9 - [facility] 93.1 [facility] LABORATORY MCH 29.4 27.5 - [facility] 32.[address] [facility] LABORATORY MCHC 33.1 32.0 - [facility] 35.7 gm/dL [facility] LABORATORY Platelets 130 (L) 145 - 357 [facility] x10(3)/[facility] LABORATORY RDWSD 46.6 (H) 36.0 - [facility] 45.0 [facility] LABORATORY RDWCV 14.4 (H) 11.4 - [facility] 13.8 % [facility] LABORATORY MPV 12.4 7.6 - 12.9 [facility] LABORATORY nRBC % Auto 0.0 % [facility] LABORATORY nRBC Abs Auto 0.000 0.000 - [facility] 0.000 [facility] x10(3)/[facility] LABORATORY Specimen Anatomical Collection Method Collection Time Receive d Time (Source) Location / / Volume Laterality Blood specimen 12/03/2019 4:02 AM 020 4:16 (specimen) EDT AM EDT Resulting Agency Comment Spec In Lab Gretchen Yoon MD HEMATOLOGY ORDERABLES Performing Organization Address City/State/[place] [address] XR Chest One View [...] - 9.5 [facility] x10(3)/[facility] LABORATORY RBC 4.00 (L) 4.58 - [facility] 5.54 [facility] x10(6)/[facility] LABORATORY Hemoglobin 11.9 (L) 13.7 - [facility] 16.5 gm/dL [facility] LABORATORY Hematocrit 35.7 (L) 40.5 - [facility] 48.5 % [facility] LABORATORY MCV 89.3 82.9 - [facility] 93.1 [facility] LABORATORY MCH 29.8 27.5 - [facility] 32.[address] [facility] LABORATORY MCHC 33.3 32.0 - [facility] 35.7 gm/dL [facility] LABORATORY Platelets 120 (L) 145 - 357 [facility] x10(3)/[facility] LABORATORY RDWSD 47.5 (H) 36.0 - [facility] 45.0 [facility] LABORATORY RDWCV 14.6 (H) 11.4 - [facility] 13.8 % [facility] LABORATORY MPV 12.0 7.6 - 12.9 [facility] LABORATORY nRBC % Auto 0.0 % [facility] LABORATORY nRBC Abs Auto 0.000 0.000 - [facility] 0.000 [facility] x10(3)/[facility] LABORATORY Specimen Anatomical Collection Method Collection Time Receive d Time (Source) Location / / Volume Laterality Blood specimen 12/02/2019 12:50 0 1:22 (specimen) PM EDT PM EDT Resulting Agency Comment Spec In Lab Gretchen Yoon MD HEMATOLOGY ORDERABLES Performing Organization Address City/State/[place] [address] Blue Tube HOLD (12/02/2019 4:55 AM EDT) P athologist Signature Blue Hold Sample in [facility] lab. [facility] LABORATORY Specimen Anatomical Collection Method Collection Time Receive d Time (Source) Location / / Volume Laterality Blood specimen Venous Draw / 12/02/2019 4:55 AM 2019 5:03 (specimen) Unknown EDT AM EDT Darrell Glasgow MD HEMATOLOGY ORDERABLES Performing Organization Address City/State/ZIP Code Phon e Number [address] Magnesium (12/02/2019 4:55 AM EDT) athologist Signature Magnesium 0.85 0.69 - 1.07 [facility] mmol/L [facility] LABORATORY Specimen Anatomical Collection Method Collection Time Receive d Time (Source) Location / / Volume Laterality Blood specimen 12/02/2019 4:55 AM 020 5:02 (specimen) EDT AM EDT Resulting Agency Comment Spec In Lab Gretchen Yoon MD CHEMISTRY ORDERABLES Performing Organization Address City/[facility]/ZIP [place] [address] (ABNORMAL) BMP w/fasting Glucose (12/02/2019 4:55 AM EDT) athologist Signature Glucose 114 (H) 65 - 99 [facility] Fasting mg/dL [facility] LABORATORY Comment: ?Fasting* Glucose Interpretive C [...] Mellitus, Position Statement from the [place] Diabetes Association. ??Diabete s Care, Volume 33, Supplement 1, Jul 2009 BUN 13 10 - 20 mg/dL [facility] LABORATORY Creatinine 0.93 0.80 - 1.50 mg/dL [facility] LABORATORY Sodium 135 135 - 145 [...] of body mass or the acutely ill. http://Link Medicine/[facility]ALOnkf eGFR 94 >=60 mL/min/1.73 m?? [facility] LABORATORY Comment: The eGFR was calculated using the CKD-EP I equation. As with all creatinine based estimates of kidney function, eGFR values calculated with the CKD-EPI equation are not accurate in patients wi th acute kidney failure, extremes of body mass or the acutely ill. http://Link Medicine/[facility]AL[facility]kf Specimen Anatomical Collection Method Collection Time Receive d Time (Source) Location / / Volume Laterality Blood specimen 12/02/2019 4:55 AM 020 5:02 (specimen) EDT AM EDT Resulting Agency Comment Spec In Lab Gretchen Yoon MD CHEMISTRY ORDERABLES Performing Organization Address City/State/[place] [address] (ABNORMAL) Hemogram (12/02/2019 4:55 AM EDT) Analysis Performed At Patho logist Time Signature WBC 9.3 4.0 - 9.5 [facility] x10(3)/[facility] LABORATORY RBC 3.71 (L) 4.58 - MELINA OLIVIA 5.54 [facility] x10(6)/[facility] LABORATORY Hemoglobin 10.8 (L) 13.7 - [facility] 16.5 gm/dL [facility] LABORATORY Hematocrit 33.1 (L) 40.5 - [facility] 48.5 % [facility] LABORATORY MCV 89.2 82.9 - [facility] 93.1 [facility] LABORATORY MCH 29.1 27.5 - [facility] 32.[address] [facility] LABORATORY MCHC 32.6 32.0 - [facility] 35.7 gm/dL [facility] LABORATORY Platelets 93 (L) 145 - 357 [facility] x10(3)/[facility] LABORATORY RDWSD 47.1 (H) 36.0 - [facility] 45.0 [facility] LABORATORY RDWCV 14.6 (H) 11.4 - [facility] 13.8 % [facility] LABORATORY MPV 11.7 7.6 - 12.9 [facility] LABORATORY nRBC % Auto 0.0 % [facility] LABORATORY nRBC Abs Auto 0.000 0.000 - [facility] 0.000 [facility] x10(3)/[facility] LABORATORY Specimen Anatomical Collection Method Collection Time Receive d Time (Source) Location / / Volume Laterality Blood specimen 12/02/2019 4:55 AM 020 5:02 (specimen) EDT AM EDT Resulting Agency Comment Spec In Lab Gretchen Yoon MD HEMATOLOGY ORDERABLES Performing Organization Address City/State/[place] [address] Transfuse 1 unit platelets, [...] For questions regarding this report, please contact [facility] number below. ? Electronically signed by: Angel Luis Barboza MD, [facility] ([phone]), at 12/01/2019 8:02 PM Narrative 12/01/2019 8:02 [...] For questions regarding this report, please contact [facility] number below. Electronically signed by: Angel Luis Barboza MD, [facility] ([phone]), at 12/01/2019 8:02 PM Gretchen Yoon MD [...] Organization Address City/State/ZIP Code Phon e Number [place] [id number] HOSPITAL LABORATORY Drive Duplex for DVT, Arm, Unilat (12/01/2019 5:08 PM EDT) Component Value Ref Test Analysis Performed At Patholo gist Range Method Time Signature VB Text Department: Vascular Surgery Lab VASCUBASE Report Patient: [id number] (ANGEL LUIS SALINAS) CPT: 47016 ICD10: R60.0 Referring Physician: GRETCHEN YOON ?? [...] For questions regarding this report, please contact [facility] number below. ? Narrative 12/01/2019 3:53 PM EDT EXAMINATION: CT HEAD WO CONTRAST (GENERIC) CLINICAL HISTORY: Headache, intracranial hemorrhage suspected Serial CT scan: please assess for propag ation of known ICH noted on prior Head CT/imaging. TECHNIQUE: CT head performed without intravenous co ntrast administration. COMPARISON: Head CT 11/30/2019. CT angiogram of [place] 11/01. FINDINGS: Ventricles are normal in size. Basal cis terns are patent. Unchanged hyperdense 2.3 x 0.7 x 0.6 cm tubular hemorrhage projecting along the course of the left optic tract (axial se [facility] 2 image 16), consistent with intraparenchymal hematoma. [...] Head CT 11/30/2019. CT angiogram of the [place] 11/01. FINDINGS: Ventricles are normal [...] Scan, Peripheral Blood (12/01/2019 12:51 PM EDT) [facility] Method Time Signature Plat Estimate Decreased [facility] LABORATORY RBC Morphology Normal [facility] LABORATORY Giant Less than 1 /HPF [facility] Platelets [facility] LABORATORY Specimen Anatomical Collection Method Collection Time Receive d Time (Source) Location / / Volume Laterality Blood specimen 12/01/2019 12:51 0 1:05 (specimen) PM EDT PM EDT Resulting Agency Comment Spec In Lab Riki Stevens MD HEMATOLOGY ORDERABLES Performing Organization Address City/State/[place] [address] (ABNORMAL) Differential, Automated (12/01/2019 12:51 PM EDT) [facility] Method Time Signature Neutrophils % 74.9 % [facility] LABORATORY Neutr Abs (ANC) 6.34 (H) 1.70 - [facility] 6.10 [facility] x10(3)/[facility] LABORATORY Lymphocytes % 11.4 % [facility] LABORATORY Lymphocytes Abs 1.0 0.9 - 3.2 [facility] x10(3)/[facility] LABORATORY Monocytes % 12.4 % [facility] LABORATORY Monocyte Abs 1.0 (H) 0.3 - 0.9 [facility] x10(3)/[facility] LABORATORY Eosinophils % 0.4 % [facility] LABORATORY Eosinophils Abs 0.0 0.0 - 0.4 [facility] x10(3)/[facility] LABORATORY Basophils % 0.4 % [facility] LABORATORY Basophils Abs 0.0 0.0 - 0.1 [facility] x10(3)/[facility] LABORATORY Immature Gran % 0.50 % [...] Pita Gran Abs 0.04 0.00 - 0.04 x10(3)/[facility] LABORATORY Specimen Anatomical Collection Method Collection Time Receive d Time (Source) Location / / Volume Laterality Blood specimen 12/01/2019 12:51 0 1:05 (specimen) PM EDT PM EDT Resulting Agency Comment Spec In Lab Riki Stevens MD HEMATOLOGY ORDERABLES Performing Organization Address City/State/[place] [address] (ABNORMAL) Hemogram (12/01/2019 12:51 PM EDT) Analysis Performed At Patho logist Time Signature WBC 8.4 4.0 - 9.5 [facility] x10(3)/[facility] LABORATORY RBC 3.69 (L) 4.58 - [facility] 5.54 [facility] x10(6)/[facility] LABORATORY Hemoglobin 10.8 (L) 13.7 - [facility] 16.5 gm/dL [facility] LABORATORY Hematocrit 32.4 (L) 40.5 - [facility] 48.5 % [facility] LABORATORY MCV 87.8 82.9 - [facility] 93.1 [facility] LABORATORY MCH 29.3 27.5 - [facility] OLIVIA 32.[address] [facility] LABORATORY MCHC 33.3 32.0 - [facility] 35.7 gm/dL [facility] LABORATORY Platelets 72 (L) 145 - 357 [facility] x10(3)/[facility] LABORATORY RDWSD 47.2 (H) 36.0 - [facility] 45.0 [facility] LABORATORY RDWCV 14.6 (H) 11.4 - [facility] 13.8 % [facility] LABORATORY MPV 12.2 7.6 - 12.9 [facility] LABORATORY nRBC % Auto 0.0 % [facility] LABORATORY nRBC Abs Auto 0.000 0.000 - [facility] 0.000 [facility] x10(3)/[facility] LABORATORY Specimen Anatomical Collection Method Collection Time Receive d Time (Source) Location / / Volume Laterality Blood specimen 12/01/2019 12:51 0 1:05 (specimen) PM EDT PM EDT Resulting Agency Comment Spec In Lab Riki Stevens MD HEMATOLOGY ORDERABLES Performing Organization Address City/[facility]/ZIP Code Phon e Number [address] (ABNORMAL) Coox2 (12/01/2019 11:42 AM EDT) Analysis Performed At Patho logist Time Signature pO2 Coox 30 mmHg [facility] LABORATORY Hgb Blood Gas 11.6 (L) 13.7 - [facility] 16.5 gm/dL [facility] LABORATORY O2HB Coox 60.8 % [facility] LABORATORY COHB Coox 0.6 % [facility] LABORATORY Comment: Nonsmokers: 0.5-1.5% COHB Smokers: Variable, but usually less than 10% Toxic: 20-30% COHB Lethal: Greater than 60% COHB METHB Coox 0.6 <=1.5 % [facility] LABORATORY Source Coox Mixed Venous [facility] LABORATORY Specimen Anatomical Collection Method Collection Time Receive d Time (Source) Location / / Volume Laterality Blood specimen 12/01/2019 11:42 0 (specimen) AM EDT 11:42 AM EDT Gretchen Yoon MD CHEMISTRY ORDERABLES Performing Organization Address City/State/[place] [address] Sedimentation rate (12/01/2019 3:55 AM EDT) P athologist Signature Sed Rate 25 3 - 46 [facility] mm/hr [facility] LABORATORY Comment: Effective June 11, 2019 [...] Winn MD HEMATOLOGY ORDERABLES Performing Organization Address City/[facility]/[place]IP [place] [address] (ABNORMAL) CRP, acute inflammation [...] Winn MD CHEMISTRY ORDERABLES Performing Organization Address City/[facility]/ZIP [place] [address] ABORH Recheck Status (12/01/2019 3:55 AM EDT) [facility] Method Time Signature ABORH Recheck Order Placed [facility] LABORATORY ABORH Type Complete [facility] LABORATORY Specimen Anatomical Collection Method Collection Time Receive d Time (Source) Location / / Volume Laterality Blood specimen 12/01/2019 3:55 AM 020 4:15 (specimen) EDT AM EDT Resulting Agency Comment Spec In Lab Lewis Gee MD BLOOD BANK ORDERABLES Performing Organization Address City/[facility]/ZIP [place] [address] Antibody screen (12/01/2019 3:55 AM EDT) [facility] Method Time Signature Ab Screen Negative [facility] LABORATORY Expires at 12/04/2019 [facility] [id number] on: [facility] LABORATORY Specimen Anatomical Collection Method Collection Time Receive d Time (Source) Location / / Volume Laterality Blood specimen 12/01/2019 3:55 AM 020 4:15 (specimen) EDT AM EDT Resulting Agency Comment Spec In Lab Lewis Gee MD BLOOD BANK ORDERABLES Performing Organization Address City/State/Z[place] [address] ABO/Rh Typing (12/01/2019 3:55 AM EDT) athologist Signature ABORh Type AB Pos [facility] LABORATORY Specimen Anatomical Collection Method Collection Time Receive d Time (Source) Location / / Volume Laterality Blood specimen 12/01/2019 3:55 AM 020 4:15 (specimen) EDT AM EDT Resulting Agency Comment Spec In Lab Lewis Gee MD BLOOD BANK ORDERABLES Performing Organization Address City/[facility]/[place]IP [place] [address] (ABNORMAL) Troponin (12/01/2019 3:55 AM EDT) athologist Signature Troponin-T 4.35 (H) 0.00 - [facility] 0.00 ng/mL [facility] LABORATORY Comment: result rechecked-slw The 99th percentile for Troponin T is le ss than 0.01 ng/mL, any detectable cTnT concentration using this assay should be considered elevated. According to the third universal definit ion of myocardial infarction the following criteria with a clinical prese ntation consistent with acute myocardial ischemia meets the diagnosis for a myocardial infarction (CO). Detection of a rise and/or fall of [...] additional sample may be indicated. Reference: Third [place] Definition of Myocardial Infarction. Journal of the [place] [employer]iology 2012;60:1581-98 Specimen Anatomical Collection Method Collection Time Receive d Time (Source) Location / / Volume Laterality Blood specimen 12/01/2019 3:55 AM 020 4:00 (specimen) EDT AM EDT Resulting Agency Comment Spec In Lab Gretchen Yoon MD CHEMISTRY ORDERABLES Performing Organization Address City/[facility]/ZIP Code Phon e Number [address] Magnesium (12/01/2019 3:55 AM EDT) P athologist Signature Magnesium 0.96 0.69 - 1.07 [facility] mmol/L [facility] LABORATORY Specimen Anatomical Collection Method Collection Time Receive d Time (Source) Location / / Volume Laterality Blood specimen 12/01/2019 3:55 AM 020 4:00 (specimen) EDT AM EDT Resulting Agency Comment Spec In Lab Gretchen Yoon MD CHEMISTRY ORDERABLES Performing Organization Address City/State/[place] [address] (ABNORMAL) BMP w/fasting Glucose (12/01/2019 3:55 AM EDT) P athologist Signature Glucose 148 (H) 65 - 99 [facility] Fasting mg/dL [facility] Comment: ?Fasting* Glucose Interpretive C [...] Mellitus, Position Statement from the [place] Diabetes Association. ??Diabete s Care, Volume 33, Supplement 1, Jul 2009 BUN 11 10 - 20 mg/dL [facility] Creatinine 0.96 0.80 - 1.50 mg/dL [facility] LABOR[facility] Sodium 132 (L) 135 - [...] of body mass or the acutely ill. http://Link Medicine/[facility]ALOnkf eGFR 91 >=60 mL/min/1.73 m?? [facility] Comment: The eGFR was calculated using the CKD-EP I equation. As with all creatinine based estimates of kidney function, eGFR values calculated with the CKD-EPI equation are not accurate in patients wi th acute kidney failure, extremes of body mass or the acutely ill. http://Link Medicine/DHnkf Specimen Anatomical Collection Method Collection Time Receive d Time (Source) Location / / Volume Laterality Blood specimen 12/01/2019 3:55 AM 020 4:00 (specimen) EDT AM EDT Resulting Agency Comment Spec In Lab Gretchen Yoon MD CHEMISTRY ORDERABLES Performing Organization Address City/State/ZIP [place] [address] (ABNORMAL) Hemogram (12/01/2019 3:55 AM EDT) Analysis [facility] Time Signature WBC 11.0 (H) 4.0 - 9.5 [facility] x10(3)/[facility] LABORATORY RBC 3.46 (L) 4.58 - [facility] 5.54 [facility] x10(6)/[facility] LABORATORY Hemoglobin 10.2 (L) 13.7 - [facility] 16.5 gm/dL [facility] Hematocrit 31.2 (L) 40.5 - [facility] 48.5 % [facility] MCV 90.2 82.9 - [facility] 93[facility]1 [facility] LAB[facility]ATORY MCH 29.5 27.5 - [facility] 32.[address] [facility] MCHC 32.7 32.0 - [facility] 35.7 gm/dL [facility] Platelets 98 (L) 145 - 357 [facility] x10(3)/[facility] LABORATORY RDWSD 47.9 (H) 36.0 - [facility] 45.0 [facility] LABORATORY RDWCV 14.6 (H) 11.4 - [facility] 13.8 % [facility] LABORATORY MPV 12.3 7.6 - 12.9 [facility] LABORATORY nRBC % Auto 0.0 % [facility] LABORATORY nRBC Abs Auto 0.000 0.000 - [facility] 0.000 [facility] x10(3)/[facility] LABORATORY Specimen Anatomical Collection Method Collection Time Receive d Time (Source) Location / / Volume Laterality Blood specimen 12/01/2019 3:55 AM 020 4:00 (specimen) EDT AM EDT Resulting Agency Comment Spec In Lab Gretchen Yoon MD HEMATOLOGY ORDERABLES Performing Organization Address City/State/[place] [address] (ABNORMAL) BLOOD GAS 2 ARTERIAL (11/30/2019 10:39 PM EDT) Analysis Performed At [facility] Time Signature pH Art 7.45 7.35 - [facility] 7.[address] [facility] LABORATORY pCO2 Art 23 (L) 35 - 45 [facility] LABORATORY pO2 Art 76 (L) 85 - 104 [facility] LABORATORY HCO3 Art 15.3 (L) 20.0 - [facility] 26.0 [facility] mmol/L [facility] LABORATORY BE Art -8.7 (L) -3.0 - 3.0 [facility] mmol/L [facility]ORY Hgb Blood Gas 11.7 (L) 13.7 - [facility] 16.5 gm/dL [facility] O2HB Art 94.2 94.0 - [facility] 97.0 % [facility] LABORATORY COHB Art 0.5 % [facility]OR[facility]ORY Comment: Nonsmokers: 0.5-1.5% COHB Smokers: Variable, but usually less than 10% Toxic: 20-30% COHB Lethal: Greater than 60% COHB METHB Art 0.6 <=1.5 % [facility]ORAT[facility] Na Whole Blood 133 (L) 135 - 145 mmol/L [facility] LABORATORY K Whole Blood 3.8 3.5 - 5.0 mmol/L [facility]ORY Comment: Please note: Patients [...] Blood 109 (H) 98 - 107 mmol/L [facility] LABORATORY Gluc Whole Bld 120 65 - 199 mg/dL [facility] Comment: Diabetes: >=200 mg/dL plus symp toms. Lactate WB 0.8 0.5 - 2.2 mmol/L [facility] LABORATORY FIO2 Art 100 % [facility]OR[facility] PF Ratio Art 76 [facility] LABORATORY Specimen Anatomical Collection Method Collection Time Receive d Time (Source) Location / / Volume Laterality Blood specimen 11/30/2019 10:39 0 (specimen) PM EDT 10:39 PM EDT Gretchen Yoon MD CHEMISTRY ORDERABLES Performing Organization Address City/[facility]/ZIP [place] [address] EKG 12 Lead (11/30/2019 [...] (Bezet) Calculated P 12 degrees MUSE SYSTEM Leslie Calculated R 19 degrees MUSE SYSTEM Leslie Calculated T -47 degrees MUSE SYSTEM Leslie INTERPRETATION Sinus rhythm with Premature supraventricular complexes [...] Yoon MD ECG ORDERABLES Performing Organization Address City/[facility]/ZIP Code Phon e Number MUSE SYSTEM (ABNORMAL) Urinalysis Microscopic Exam (11/30/2019 8:40 PM EDT) P athologist Signature RBC UA 27 (H) 0 - 3 /HPF [facility]OR[facility]ORY WBC UA 4 (H) 0 - 3 /HPF [facility] Hyaline Cast 3 (H) 0 - 2 /LPF [facility] LABORATORY Specimen (Source) Anatomical Collection Method Collection Time Re ceived Time Location / / Volume Laterality Urine specimen 11/30/2019 8:40 11/30/2019 obtained via PM EDT 10:51 PM EDT indwelling urinary catheter (specimen) Resulting Agency Comment Spec In Lab Rossy Winn MD URINE ORDERABLES Performing Organization Address City/[facility]/[place]IP [place] [address] (ABNORMAL) Urinalysis with reflex Culture (11/30/2019 8:40 PM EDT) Patholo gist Method Time Signature Glucose UA Negative Negative [facility] mg/dL [facility] Protein UA Negative Negative [facility] mg/dL [facility] Bilirubin UA Negative Negative [facility] mg/dL [facility] Comment: Clinical correlation required for positi ve Urine Bilirubin results as false positive may occur with some drugs and d rug related products. If a false positive is suspected a serum total bili morales should be considered if clinically indicated. Urobilinogen UA Normal Normal mg/dL [facility] pH UA 5.5 5.0 - 8.0 [facility] Blood UA Moderate (A) Negative mg/dL [facility] Ketones UA 40 (A) Negative mg/dL [facility] Nitrite UA Negative Negative [facility] LABORATORY Leukocytes UA Trace (A) Negative [facility] LABORATORY Appearance UA Clear Clear [facility] Spec [place] UA 1.026 1.006 - 1.030 [facility] Color UA Yellow Yellow [facility] Culture Reflexed No [facility] Specimen (Source) Anatomical Collection Method Collection Time Re ceived Time Location / / Volume Laterality Urine specimen 11/30/2019 8:40 11/30/2019 obtained via PM EDT 10:51 PM EDT indwelling urinary catheter (specimen) Resulting Agency Comment Spec In Lab Gretchen Yoon MD URINE ORDERABLES Performing Organization Address City/State/[place] [address] (ABNORMAL) pro-Brain Natriuretic Peptide (11/30/2019 8:30 PM EDT) P athologist Signature ProBNP 2,802 (H) <=125 [facility] pg/mL [facility] Specimen Anatomical Collection Method Collection Time Receive d Time (Source) Location / / Volume Laterality Blood specimen Venous Draw / 11/30/2019 8:30 PM 2019 8:36 (specimen) Unknown EDT PM EDT Resulting Agency Comment Spec In Lab Rossy Winn MD CHEMISTRY ORDERABLES Performing Organization Address City/[facility]/ZIP [place] [address] (ABNORMAL) Troponin (11/30/2019 8:30 PM EDT) athologist Signature Troponin-T 5.04 (H) 0.00 - M[place] MONAE 0.00 ng/mL [facility] Comment: The 99th percentile for Troponin T is le ss than 0.01 ng/mL, any detectable cTnT concentration using this assay should be considered elevated. According to the third universal definit ion of myocardial infarction the following criteria with a clinical prese ntation consistent with acute myocardial ischemia meets the diagnosis for a myocardial infarction (CO). Detection of a rise and/or fall of [...] additional sample may be indicated. Reference: Third Copenhagen Definition of Myocardial Infarction. Journal of the [place] College of Cardiology 2012;60:1581-98 Specimen Anatomical Collection Method Collection Time Receive d Time (Source) Location / / Volume Laterality Blood specimen Venous Draw / 11/30/2019 8:30 PM 2019 8:36 (specimen) Unknown EDT PM EDT Resulting Agency Comment Spec In Lab Rossy Winn MD CHEMISTRY ORDERABLES Performing Organization Address City/[facility]/ZIP [place] [address] Magnesium (11/30/2019 8:30 PM EDT) athologist Signature Magnesium 0.79 0.69 - 1.07 [place] OLIVIA mmol/L [facility] Specimen Anatomical Collection Method Collection Time Receive d Time (Source) Location / / Volume Laterality Blood specimen 11/30/2019 8:30 PM 020 8:35 (specimen) EDT PM EDT Resulting Agency Comment Spec In Lab Gretchen Yoon MD CHEMISTRY ORDERABLES Performing Organization Address City/State/[place] [address] (ABNORMAL) Basic Metabolic Panel (non-fasting) (11/30/2019 8:30 PM EDT) athologist Signature Glucose Lvl 132 65 - 199 [facility] mg/dL [facility] Comment: Diabetes: >=200 mg/dL plus symp toms BUN 12 10 - 20 mg/dL [facility] Creatinine 0.94 0.80 - 1.50 mg/dL [facility] Sodium 136 135 - 145 [...] of body mass or the acutely ill. http://Link [email or web address] eGFR 93 >=60 mL/min/1.73 m?? [facility] Comment: The eGFR was calculated using the CKD-EP I equation. As with all creatinine based estimates of kidney function, eGFR values calculated with the CKD-EPI equation are not accurate in patients wi th acute kidney failure, extremes of body mass or the acutely ill. [email or web address] [email or web address] Specimen Anatomical Collection Method Collection Time Receive d Time (Source) Location / / Volume Laterality Blood specimen 11/30/2019 8:30 PM 020 8:35 (specimen) EDT PM EDT Resulting Agency Comment Spec In Lab Gretchen Yoon MD CHEMISTRY ORDERABLES Performing Organization Address City/[facility] [place] [address] Blood culture (11/30/2019 8:30 PM EDT) Patholo gist Method Time Signature Blood Culture No growth [place] at 5 days. [facility] Specimen Anatomical Collection Method Collection Time Receive d Time (Source) Location / / Volume Laterality Blood specimen 11/30/2019 8:30 PM 020 9:40 (specimen) EDT PM EDT Comment: L HAND Resulting Agency Comment Spec In Lab Gretchen Yoon MD MICROBIOLOGY - BLOOD ORDERAB LES Performing Organization Address City/[facility]/[place] [address] Blood culture (11/30/2019 8:30 PM EDT) Patholo gist Method Time Signature Blood Culture No growth [place] at 5 days. [facility] Specimen Anatomical Collection Method Collection Time Receive d Time (Source) Location / / Volume Laterality Blood specimen 11/30/2019 8:30 PM 020 9:40 (specimen) EDT PM EDT Comment: R HAND Resulting Agency Comment Spec In Lab Gretchen Yoon MD MICROBIOLOGY - BLOOD ORDERAB LES Performing Organization Address [facility] [place] [address] XR Chest One View [...] 7.35 - [facility] 7.[address] [facility] LAB[facility]ORY pCO2 Art 27 (L) 35 - 45 [facility] mmHg [facility] pO2 Art 68 (L) 85 - 104 [facility] LABORATORY HCO3 Art 18.2 (L) 20.0 - [facility] 26.0 [facility] mmol/[facility] LAB[facility] BE Art -5.9 (L) -3.0 - 3.0 [facility] mmol/L [facility] Hgb Blood Gas 12.4 (L) 13.7 - [facility] 16.5 gm/dL [facility] O2HB Art 93.1 (L) 94.0 - [facility] 97.0 % [facility] COHB Art 0.8 % [facility] Comment: Nonsmokers: 0.5-1.5% COHB Smokers: Variable, but usually less than 10% Toxic: 20-30% COHB Lethal: Greater than 60% COHB METHB Art 0.4 <=1.5 % [facility] Na Whole Blood 133 (L) 135 - 145 mmol/L [facility] K Whole Blood 3.6 3.5 - 5.0 mmol/L [facility]ORY Comment: Please note: Patients [...] Blood 108 (H) 98 - 107 mmol/L [facility] Gluc Whole Bld 121 65 - 199 mg/dL [facility] Comment: Diabetes: >=200 mg/dL plus symp toms. Lactate WB 1.2 0.5 - 2.2 mmol/L [facility] Flow Art 5.0 LPM [facility] Specimen Anatomical Collection Method Collection Time Receive d Time (Source) Location / / Volume Laterality Blood specimen 11/30/2019 8:09 PM 020 8:09 (specimen) EDT PM EDT Gretchen Yoon MD CHEMISTRY ORDERABLES Performing Organization Address City/State/[place] [address] Angiogram [place] (11/30/2019 4:36 PM EDT) Anatomical [...] CT HEAD WO CONTRAST (GENERIC), CT ANGIOGRAM [place] CLINICAL HISTORY: Headache, intracranial hemorrhage suspected F/U on known ICH - assessing for propaga tion TECHNIQUE: CT head performed without intravenous co ntrast administration. CT angiogram [place] 65 cc Omnipaque 350 administered [...] HEAD WO CONTRAST (GENERI C), CT ANGIOGRAM [place] CLINICAL HISTORY: Headache, intracranial hemorrhage suspected F/U on known ICH - assessing for propaga tion TECHNIQUE: CT head performed without intravenous co ntrast administration. CT angiogram [place] 65 cc Omnipaque 350 administered [...] CT HEAD WO CONTRAST (GENERIC), CT ANGIOGRAM [place] CLINICAL HISTORY: Headache, intracranial hemorrhage suspected F/U on known ICH - assessing for propaga tion TECHNIQUE: CT head performed without intravenous co ntrast administration. CT angiogram [place] 65 cc Omnipaque 350 administered [...] HEAD WO CONTRAST (GENERI C), CT ANGIOGRAM [place] CLINICAL HISTORY: Headache, intracranial hemorrhage suspected F/U on known ICH - assessing for propaga tion TECHNIQUE: CT head performed without intravenous co ntrast administration. CT angiogram [place] 65 cc Omnipaque 350 administered [...] Electronically signed by: Angel Luis Barboza MD, [facility] ([phone]), at 11/30/2019 5:04 PM Gretchen Yoon MD [...] 453 ms MUSE SYSTEM (Bezet) Calculated P Leslie 52 degrees MUSE SYSTEM Calculated R Leslie 5 degrees MUSE SYSTEM Calculated T Leslie -60 degrees MUSE SYSTEM INTERPRETATION Sinus rhythm [...] Nilo ? (Age): 1945(74y) Med Rec#: ? [id number] ?Sex: ?M ? Site Loc: ? [facility] ?Ht / Wt: ??178(cm)/64(kg) Pt. Loc: ?[facility] ? BSA: ?1.8 Study Date: ?? 11/30/2019 ?Pt. Type: Inpatient Tape: ? Referring: GILMER Reading: Tello Mejia ([id number]) Director Of Accounting: Friend, Lolita Diagnosis: *ST elevation (STEMI) myocardial [...] Vmax ?0.58 ? m/sec ? MV deceleration knho493.05 ? m sec ? MV A-wave Vmax [...] ? Mid-Inferior ?Akinetic ? Mid-Inferoseptal ?Normal ? [place]-Septal ? Normal ? [place]-Anterior ? Normal ? [place]-Lateral ?Normal ? [place]-Inferior ? Hypokinetic ? [place]-Tip ?Normal ? This report has been electronically sign ed by: _ Tello Mejia MD ? 11/30/2019 12: 45:27 Images reviewed and interpretation [facility] Cardiac Ultrasound Laboratory Procedure Note Tello Mejia MD - 11/30/2019Formatti ng of this note might be different from the original. Procedure: Transthoracic Echocardiogram Patient: RITA ACOSTA(Age): [birth year](74y) Med Rec#: [id number] Sex: M Site Loc: [facility] Ht / Wt: 178(cm)/64(kg) Pt. Loc: [facility] BSA: 1.8 Study Date: 11/30/2019 Pt. Type: Inpatie nt Tape: Referring: VANGIEJ Reading: Tello Mejia ([id number]) Director Of Accounting: Eve Lolita Diagnosis: *ST elevation (STEMI) myocardial [...] MV E-wave Vmax 0.58 m/sec MV deceleration [id number] msec MV A-wave Vmax 0.74 m/sec MV [...] Hypokinetic Mid-Posterolateral Hypokinetic Mid-Inferior Akinetic Mid-Inferoseptal Normal [place]-Septal Normal [place]-Anterior Normal [place]-Lateral Normal [place]-Inferior Hypokinetic [place]-Tip Normal This report has been electronically sign ed by: _ Tello Mejia MD 11/30/2019 12:45:27 Images reviewed and interpretation verif d [facility] Cardiac Ultrasound Laboratory Gretchen Yoon MD ECHO [...] Electronically signed by: Angel Luis Barboza MD, [facility] ([phone]), at 11/30/2019 12:04 PM Narrative 11/30/2019 12:04 [...] [facility] Magnesium 0.88 0.69 - 1.07 [facility] mmol/L [facility] Specimen Anatomical Collection Method Collection Time Receive d Time (Source) Location / / Volume Laterality Blood specimen Venous Draw / 11/30/2019 8:30 AM 2019 8:37 (specimen) Unknown EDT AM EDT Resulting Agency Comment Spec In Lab Rossy Winn MD CHEMISTRY ORDERABLES Performing Organization Address City/State/Z[place] [address] (ABNORMAL) CK (11/30/2019 8:30 AM EDT) athologist [facility] CK, Total 1,645 (H) 0 - 200 [facility] Specimen Anatomical Collection Method Collection Time Receive d Time (Source) Location / / Volume Laterality Blood specimen 11/30/2019 8:30 AM 020 8:32 (specimen) EDT AM EDT Resulting Agency Comment Spec In Lab Gretchen Yoon MD CHEMISTRY ORDERABLES Performing Organization Address City/[facility]/ZIP [facility] [place] [address] (ABNORMAL) Troponin (11/30/2019 8:30 AM EDT) athologist [facility] Troponin-T 8.04 (H) 0.00 - MELINA OLIVIA 0.00 ng/mL [facility] Comment: result rechecked-rancho The 99th percentile for Troponin T is le ss than 0.01 ng/mL, any detectable cTnT concentration using this assay should be considered elevated. According to the third universal definit ion of myocardial infarction the following criteria with a clinical prese ntation consistent with acute myocardial ischemia meets the diagnosis for a myocardial infarction (CO). Detection of a rise and/or fall of [...] additional sample may be indicated. Reference: Third Copenhagen Definition of Myocardial Infarction. Journal of the [place] College of Cardiology 2012;60:1581-98 Specimen Anatomical Collection Method Collection Time Receive d Time (Source) Location / / Volume Laterality Blood specimen 11/30/2019 8:30 AM 020 8:32 (specimen) EDT AM EDT Resulting Agency Comment Spec In Lab Gretchen Yoon MD CHEMISTRY ORDERABLES Performing Organization Address City/State/[place] [address] EKG 12 Lead (11/30/2019 7:57 AM EDT) Component Value Ref Range Test Analysis Performed Pathologis t Method Time At Signature Ventricular rate 64 BPM MUSE SYSTEM Atrial Rate 64 BPM MUSE SYSTEM P-R Interval 132 ms MUSE SYSTEM QRS Duration 78 ms MUSE SYSTEM Q-T Interval 420 ms MUSE SYSTEM QTC Calculated 433 ms MUSE SYSTEM (Bezet) Calculated P Leslie 28 degrees MUSE SYSTEM Calculated R Leslie 7 degrees MUSE SYSTEM Calculated T Leslie -33 degrees MUSE SYSTEM INTERPRETATION Sinus rhythm [...] - 99 [facility] Fasting mg/dL [facility] Comment: ?Fasting* Glucose Interpretive C [...] Mellitus, Position Statement from the [place] Diabetes Association. ??Diabete s Care, Volume 33, Supplement 1, Jul 2009 BUN 13 10 - 20 mg/dL [facility] Creatinine 0.90 0.80 - 1.50 mg/dL [facility] LABOR[facility] Sodium 135 135 - 145 [...] of body mass or the acutely ill. http://Link Medicine/[facility] eGFR 98 >=60 mL/min/1.73 m?? [facility] Comment: The eGFR was calculated using the CKD-EP I equation. As with all creatinine based estimates of kidney function, eGFR values calculated with the CKD-EPI equation are not accurate in patients wi th acute kidney failure, extremes of body mass or the acutely ill. http://Link Medicine/[facility]AL[facility]kf Specimen Anatomical Collection Method Collection Time Receive d Time (Source) Location / / Volume Laterality Blood specimen 11/30/2019 2:15 AM 020 2:29 (specimen) EDT AM EDT Resulting Agency Comment Spec In Lab Gretchen Yoon MD CHEMISTRY ORDERABLES Performing Organization Address City/State/ZIP Code Phon e Number [place] [id number] (ABNORMAL) Hemogram (11/30/2019 2:15 AM EDT) Analysis Performed At Patho logist Time Signature WBC 11.2 (H) 4.0 - 9.5 [facility] x10(3)/[facility] LABORATORY RBC 3.83 (L) 4.58 - [facility] 5.54 [facility] x10(6)/[facility] LABORATORY Hemoglobin 11.4 (L) 13.7 - [facility] 16.5 gm/dL [facility] Hematocrit 35.2 (L) 40.5 - [facility] MCV 91.9 82.9 - [facility] 93.[address] [facility] MCH 29.8 27.5 - [facility] 32.1 [facility] LABORATORY MCHC 32.4 32.0 - MELINA WHITTENCOCK 35.7 gm/dL [facility] LAB[facility] Platelets 122 (L) 145 - 357 MELINA MARSHOLIVIA x10(3)/[facility] [facility] LABORATORY RDWSD 49.8 (H) 36.0 - MELINA WHITTENCOCK 45.0 [facility] LABORATORY RDWCV 14.8 (H) 11.4 - MELINA OLIVIA 13.8 % [facility] LABORATORY MPV 12.1 7.6 - 12.9 MELINA MONAE [facility] LABORATORY nRBC % Auto 0.0 % [facility] LABORATORY nRBC Abs Auto 0.000 0.000 - MELINA MARSHOLIVIA 0.000 [facility] x10(3)/[facility] LABORATORY Specimen Anatomical Collection Method Collection Time Receive d Time (Source) Location / / Volume Laterality Blood specimen 11/30/2019 2:15 AM 020 2:29 (specimen) EDT AM EDT Resulting Agency Comment Spec In Lab Gretchen Yoon MD HEMATOLOGY ORDERABLES Performing Organization Address City/[facility]/ZIP Code Phon e Number [address] (ABNORMAL) CK (11/30/2019 2:15 AM EDT) [facility] CK, Total 1,969 (H) 0 - 200 [facility] LABORATORY Specimen Anatomical Collection Method Collection Time Receive d Time (Source) Location / / Volume Laterality Blood specimen 11/30/2019 2:15 AM 020 2:29 (specimen) EDT AM EDT Resulting Agency Comment Spec In Lab Gretchen Yoon MD CHEMISTRY ORDERABLES Performing Organization Address City/State/[place] [address] (ABNORMAL) Troponin (11/30/2019 2:15 AM EDT) [facility] Troponin-T 11.73 (H) 0.00 - MELINA WHITTENCOCK 0.00 ng/mL [facility] LABORATORY Comment: result rechecked-slw The 99th percentile for Troponin T is le ss than 0.01 ng/mL, any detectable cTnT concentration using this assay should be considered elevated. According to the third universal definit ion of myocardial infarction the following criteria with a clinical prese ntation consistent with acute myocardial ischemia meets the diagnosis for a myocardial infarction (CO). Detection of a rise and/or fall of [...] additional sample may be indicated. Reference: Third Copenhagen Definition of Myocardial Infarction. Journal of the [place] [employer] 2012;60:1581-98 result rechecked- The 99th percentile for Troponin T is le ss than 0.01 ng/mL, any detectable cTnT concentration using this assay should be considered elevated. According to the third universal definit ion of myocardial infarction the following criteria with a clinical prese ntation consistent with acute myocardial ischemia meets the diagnosis for a myocardial infarction (CO). Detection of a rise and/or fall of [...] additional sample may be indicated. Reference: Third Copenhagen Definition of Myocardial Infarction. Journal of the [place] [employer] 2012;60:1581-98 Corrected from 11.73 ng/ml [HI] on 11/29 3:11:51 EDT by Debi Hawley Specimen Anatomical Collection Method Collection Time Receive d Time (Source) Location / / Volume Laterality Blood specimen 11/30/2019 2:15 AM 020 2:29 (specimen) EDT AM EDT Resulting Agency Comment Spec In Lab Gretchen Yoon MD CHEMISTRY ORDERABLES Performing Organization Address City/[facility]/ZIP Code Phon e Number [address] LDL Cholesterol, Direct (11/30/2019 2:15 AM EDT) P athologist Signature LDL Chol 156 mg/dL [facility] LABORATORY Comment: Lowest Risk: <100 mg/dL Lower Risk: 100-129 mg/dL Borderline High Risk: 130-159 mg/dL High Risk: 160-189 mg/dL Very High Risk: >wb=952 mg/dL Specimen Anatomical Collection Method Collection Time Receive d Time (Source) Location / / Volume Laterality Blood specimen 11/30/2019 2:15 AM 020 2:29 (specimen) EDT AM EDT Resulting Agency Comment Spec In Lab Gretchen Yoon MD CHEMISTRY ORDERABLES Performing Organization Address City/[facility]/ZIP Code Phon e Number [address] (ABNORMAL) Hemoglobin A1c (11/30/2019 2:15 AM EDT) Analysis Performed At Patho logist Time Signature Hemoglobin A1C 6.3 (H) 4.3 - 5.6 [facility] LABORATORY Comment: Reference Range: 4.3 [...] Mellitus, Diabetes Care 2013; 36: Suppl. 1, F76-80 Est Avg Gluc See note mg/dL [facility] LABORATORY Comment: Estimated Average Glucose [...] with hemoglobinopathies. Additional resources are available on [facility] ADA website. Kiko CARBAJAL, Jenn J, Silas R, et al. ??Tr anslating the A1C assay into estimated average glucose values. ??Diabetes Care 2008:31(8):7836-8093. Specimen Anatomical Collection Method Collection Time Receive d Time (Source) Location / / Volume Laterality Blood specimen 11/30/2019 2:15 AM 020 2:29 (specimen) EDT AM EDT Resulting Agency Comment Spec In Lab Gretchen Yoon MD CHEMISTRY ORDERABLES Performing Organization Address City/State/[place] [address] Lipid Panel (Reflex Direct LDL) (11/30/2019 2:15 AM EDT) athologist Signature Chol, Total 195 mg/dL [facility] LABORATORY Comment: Lower Risk: <200 mg/dL Average Risk: 200-239 mg/dL Higher Risk: >cr=023 mg/dL Triglycerides 93 mg/dL [facility] LABORATORY Comment: Average Risk/Lower Risk: <150 mg/dL Borderline High Risk: 150-199 mg/dL High Risk: 200-499 mg/dL Very High Risk: >av=924 mg/dL HDL 32 mg/dL [facility] LABORATORY Comment: Males: ?? Higher Risk: <40 mg/dL Females: ?? HIgher Risk: <50 mg/dL LDL Cholesterol 144 mg/dL [facility] LABORATORY Comment: Lowest Risk: <100 mg/dL Lower Risk: 100-129 mg/dL Borderline High Risk: 130-159 mg/dL High Risk: 160-189 mg/dL Very High Risk: >xi=335 mg/dL Chol/HDL Ratio 6.1 ratio [facility] LABORATORY Lipid Interpretation See Note [facility] LABORATORY Comment: Lipid management should be guided by a p atient? s ASCVD risk, goals and preferences. ACC/AHA Guidelines recommend high intens ity statin if clinical ASCVD or LDL greater than or equal to 190 mg/dL. [email or web address]-REZ-[email or web address] Adults aged 40-75 with LDL 70-189 mg/dL should have their 10 year ASCVD risk estimated with the ACC/AHA ASCVD risk es timator http://tools.acc.org/NTVZS-Dbon-Jcoxnfzo r/ Statin should be discussed if risk [...] Organization Address City/State/[place] [address] (ABNORMAL) CK (11/29/2019 6:35 PM EDT) athologist Signature CK, Total 2,780 (H) 0 - 200 [facility] unit/L [facility] LABORATORY Specimen Anatomical Collection Method Collection Time Receive d Time (Source) Location / / Volume Laterality Blood specimen 11/29/2019 6:35 PM 020 6:53 (specimen) EDT PM EDT Resulting Agency Comment Spec In Lab Gretchen Yoon MD CHEMISTRY ORDERABLES Performing Organization Address City/State/[place] [address] (ABNORMAL) Troponin (11/29/2019 6:35 PM EDT) athologist Signature Troponin-T 17.60 (H) 0.00 - [facility] 0.00 ng/mL [facility] LABORATORY Comment: result rechecked-az The 99th percentile for Troponin T is le ss than 0.01 ng/mL, any detectable cTnT concentration using this assay should be considered elevated. According to the third universal definit ion of myocardial infarction the following criteria with a clinical prese ntation consistent with acute myocardial ischemia meets the diagnosis for a myocardial infarction (CO). Detection of a rise and/or fall of [...] additional sample may be indicated. Reference: Third Copenhagen Definition of Myocardial Infarction. Journal of the [place] [employer] 2012;60:1581-98 Specimen Anatomical Collection Method Collection Time Receive d Time (Source) Location / / Volume Laterality Blood specimen 11/29/2019 6:35 PM 020 6:53 (specimen) EDT PM EDT Resulting Agency Comment Spec In Lab Gretchen Yoon MD CHEMISTRY ORDERABLES Performing Organization Address City/State/[place] [address] EKG 12 Lead (11/29/2019 3:58 PM EDT) [facility] gist Method Time Signature Ventricular rate 73 BPM MUSE SYSTEM Atrial Rate 73 BPM MUSE SYSTEM P-R Interval 152 ms MUSE SYSTEM QRS Duration 84 ms MUSE SYSTEM Q-T Interval 404 ms MUSE SYSTEM QTC Calculated 445 ms MUSE SYSTEM (Bezet) Calculated P Leslie 50 degrees MUSE SYSTEM Calculated R Leslie -4 degrees MUSE SYSTEM Calculated T Leslie 19 degrees MUSE SYSTEM INTERPRETATION Sinus rhythm [...] CLINICAL HISTORY: stemi (as entered by o [facility] provider in the order requisition) TECHNIQUE: [...] lung apex is excluded from the imaged [id number]. IMPRESSION: 1. ??New right internal jugular pulmonar [...] lung apex is excluded from the imaged [id number]. Procedure Note Estefani Harris MD - 11/29/2019Formattin [...] lung apex is excluded from the imaged [id number]. IMPRESSION 1. New right internal jugular pulmonary [...] (ABNORMAL) Differential, Automated (11/29/2019 2:32 PM EDT) [facility] Method Time Signature Neutrophils % 83.8 % [facility] LABORATORY Neutr Abs (ANC) 12.12 (H) 1.70 - [facility] 6.10 [facility] x10(3)/[facility] LABORATORY Lymphocytes % 9.1 % [facility] LABORATORY Lymphocytes Abs 1.3 0.9 - 3.2 [facility] x10(3)/[facility] LABORATORY Monocytes % 6.2 % [facility] LABORATORY Monocyte Abs 0.9 0.3 - 0.9 [facility] x10(3)/[facility] LABORATORY Eosinophils % 0.0 % [facility] LABORATORY Eosinophils Abs 0.0 0.0 - 0.4 [facility] x10(3)/[facility] LABORATORY Basophils % 0.3 % [facility] LABORATORY Basophils Abs 0.0 0.0 - 0.1 [facility] x10(3)/[facility] LABORATORY Immature Gran % 0.60 % [...] Gran Abs 0.08 (H) 0.00 - 0.04 x10(3)/[facility] LABORATORY Specimen Anatomical Collection Method Collection Time Receive d Time (Source) Location / / Volume Laterality Blood specimen 11/29/2019 2:32 PM 020 2:55 (specimen) EDT PM EDT Resulting Agency Comment Spec In Lab Darrell Glasgow MD HEMATOLOGY ORDERABLES Performing Organization Address City/State/[place] [address] (ABNORMAL) Hemogram (11/29/2019 2:32 PM EDT) Analysis Performed At Patho logist Time Signature WBC 14.5 (H) 4.0 - 9.5 [facility] x10(3)/[facility] LABORATORY RBC 4.53 (L) 4.58 - [facility] 5.54 [facility] x10(6)/[facility] LABORATORY Hemoglobin 13.1 (L) 13.7 - [facility] 16.5 gm/dL [facility] LABORATORY Hematocrit 40.8 40.5 - [facility] 48.5 % [facility] LABORATORY MCV 90.1 82.9 - [facility] 93.1 [facility] LABORATORY MCH 28.9 27.5 - [facility] 32.[address] [facility] LABORATORY MCHC 32.1 32.0 - [facility] 35.7 gm/dL [facility] LABORATORY Platelets 184 145 - 357 [facility] x10(3)/[facility] LABORATORY RDWSD 47.8 (H) 36.0 - [facility] OLIVIA 45.0 [facility] LABORATORY RDWCV 14.5 (H) 11.4 - [facility] OLIVIA 13.8 % [facility] LABORATORY MPV 11.9 7.6 - 12.9 [facility] nRBC % Auto 0.0 % [facility] LABORATORY nRBC Abs Auto 0.000 0.000 - MELINA OLIVIA 0.000 [facility] x10(3)/[facility] LABORATORY Specimen Anatomical Collection Method Collection Time Receive d Time (Source) Location / / Volume Laterality Blood specimen 11/29/2019 2:32 PM 020 2:55 (specimen) EDT PM EDT Resulting Agency Comment Spec In Lab Darrell Glasgow MD HEMATOLOGY ORDERABLES Performing Organization Address City/State/ZIP Code Phon e Number [address] (ABNORMAL) CK (11/29/2019 2:32 PM EDT) athologist Signature CK, Total 3,282 (H) 0 - 200 [facility] unit/L [facility] LABORATORY Specimen Anatomical Collection Method Collection Time Receive d Time (Source) Location / / Volume Laterality Blood specimen 11/29/2019 2:32 PM 020 2:32 (specimen) EDT PM EDT Resulting Agency Comment Spec In Lab Gretchen Yoon MD CHEMISTRY ORDERABLES Performing Organization Address City/[facility] [place] [address] (ABNORMAL) Troponin (11/29/2019 2:32 PM EDT) athologist Signature Troponin-T 20.33 (H) 0.00 - MELINA OLIVIA 0.00 ng/mL [facility] LABORATORY Comment: The 99th percentile for Troponin T is le ss than 0.01 ng/mL, any detectable cTnT concentration using this assay should be considered elevated. According to the third universal definit ion of myocardial infarction the following criteria with a clinical prese ntation consistent with acute myocardial ischemia meets the diagnosis for a myocardial infarction (CO). Detection of a rise and/or fall of [...] additional sample may be indicated. Reference: Third Copenhagen Definition of Myocardial Infarction. Journal of the [place] [employer] 2012;60:1581-98 Specimen Anatomical Collection Method Collection Time Receive d Time (Source) Location / / Volume Laterality Blood specimen 11/29/2019 2:32 PM 020 2:32 (specimen) EDT PM EDT Resulting Agency Comment Spec In Lab Gretchen Yoon MD CHEMISTRY ORDERABLES Performing Organization Address [facility] [place] [address] (ABNORMAL) APTT (11/29/2019 2:32 PM EDT) P athologist Signature PTT 114 25 - 37 [facility] (Critical) [facility] LABORATORY Comment: Critical Result called by ?? [...] Yoon MD HEMATOLOGY ORDERABLES Performing Organization Address [facility] [place] [address] (ABNORMAL) Prothrombin Time (11/29/2019 2:32 PM EDT) P athologist Signature PT 13.5 (H) 9.4 - 12.5 [facility] LABORATORY INR 1.2 [facility] [...] Organization Address City/State/[place]IP [place] [address] (ABNORMAL) Hepatic Function Panel (11/29/2019 2:32 PM EDT) P athologist Signature Total Protein 6.3 6.1 - 8.0 [facility] gm/dL [facility] LABORATORY Albumin 3.6 3.2 - 5.2 [facility] gm/dL [facility] LABORATORY AST 257 (H) 0 - 39 [facility] unit/L [facility] LABORATORY ALT 50 0 - 55 [facility] unit/L [facility] LABORATORY Alk Phos 84 40 - 130 [facility] unit/L [facility] LABORATORY Total 0.3 0.2 - 1.3 [facility] Bilirubin mg/dL [facility] LABORATORY Bili, Direct 0.1 0.0 - 0.3 [facility] OLIVIA mg/dL [facility] LABORATORY Specimen Anatomical Collection Method Collection Time Receive d Time (Source) Location / / Volume Laterality Blood specimen 11/29/2019 2:32 PM 020 2:32 (specimen) EDT PM EDT Resulting Agency Comment Spec In Lab Gretchen Yoon MD CHEMISTRY ORDERABLES Performing Organization Address City/[facility]/[place] [address] (ABNORMAL) pro-Brain Natriuretic Peptide (11/29/2019 2:32 PM EDT) P athologist Signature ProBNP 272 (H) <=125 pg/mL [facility] LABORATORY Specimen Anatomical Collection Method Collection Time Receive d Time (Source) Location / / Volume Laterality Blood specimen 11/29/2019 2:32 PM 020 2:32 (specimen) EDT PM EDT Resulting Agency Comment Spec In Lab Gretchen Yoon MD CHEMISTRY ORDERABLES Performing Organization Address City/[facility]/ZIP Code Phon e Number [place] OLIVIA[address] Magnesium (11/29/2019 2:32 PM EDT) athologist Signature Magnesium 0.76 0.69 - 1.07 [facility] mmol/L [facility] LABORATORY Specimen Anatomical Collection Method Collection Time Receive d Time (Source) Location / / Volume Laterality Blood specimen 11/29/2019 2:32 PM 020 2:32 (specimen) EDT PM EDT Resulting Agency Comment Spec In Lab Gretchen Yoon MD CHEMISTRY ORDERABLES Performing Organization Address City/State/ZIP Code Phon e Number [address] (ABNORMAL) Basic Metabolic Panel (non-fasting) (11/29/2019 2:32 PM EDT) athologist Signature Glucose Lvl 149 65 - 199 [facility] mg/dL [facility] LABORATORY Comment: Diabetes: >=200 mg/dL plus symp toms BUN 16 10 - 20 mg/dL [facility] LABORATORY Creatinine 0.94 0.80 - 1.50 mg/dL [facility] LABORATORY Sodium 135 135 - 145 [...] of body mass or the acutely ill. http://[employer]/[facility] BUFFALOnkf eGFR 93 >=60 mL/min/1.73 m?? [facility] LABORATORY Comment: The eGFR was calculated using the CKD-EP I equation. As with all creatinine based estimates of kidney function, eGFR values calculated with the CKD-EPI equation are not accurate in patients wi th acute kidney failure, extremes of body mass or the acutely ill. http://[employer]/[facility] BUFFALOnkf Specimen Anatomical Collection Method Collection Time Receive d Time (Source) Location / / Volume Laterality Blood specimen 11/29/2019 2:32 PM 020 2:32 (specimen) EDT PM EDT Resulting Agency Comment Spec In Lab Gretchen Yoon MD CHEMISTRY ORDERABLES Performing Organization Address City/[facility] [place] [address] EKG 12 Lead (11/29/2019 11:38 AM EDT) [facility] gist Method Time Signature Ventricular rate 60 BPM MUSE SYSTEM Atrial Rate 60 BPM MUSE SYSTEM P-R Interval 140 ms MUSE SYSTEM QRS Duration 86 ms MUSE SYSTEM Q-T Interval 474 ms MUSE SYSTEM QTC Calculated 474 ms MUSE SYSTEM (Bezet) Calculated P Leslie 48 degrees MUSE SYSTEM Calculated R Leslie 14 degrees MUSE SYSTEM Calculated T Leslie 58 degrees MUSE SYSTEM INTERPRETATION Normal sinus [...] Yoon MD ECG ORDERABLES Performing Organization Address City/[facility] Phon e Number MUSE SYSTEM CARDIAC CATHETERIZATION (11/29/2019 11:15 AM EDT) Anatomical Region Laterality Modality Other Specimen (Source) Anatomical Location Collection Method / Collectio n Time Received Time / Laterality Volume Narrative 11/30/2019 1:09 PM EDT ?[facility] ? Cardiac Cathete rization/Intervention Report ? Patient Name: Salinas, Angel Luis H. ? Procedure Date: 11/29/2019 ? A #: [id number] ? Primary Physician: Shaan, Gretchen N ? Case #: [id number] ? File Name: [id number] ? Catheterization Order Number: [id number] ? [facility] ? Final Report [place], [place] ? Patient Name: ? Angel Luis Salinas ? ID#: ?[id number] ? : ?1945 ? Procedure Date: ? [...] was Emergent. The indication for ?the laboratory sample carrier visit is ACS less than or equal [...] the RCA. This was a ? de ujsta lesion. This lesion was designated a type [...] administered prior to arrival in the laboratory sample carrier. ?Recommended anti-platelet/anti- thrombotic regimen: ?Continue aspirin 81 [...] note might be different from the original. [facility] Cardiac Catheterization/Intervention Re port Patient Name: SalinasAngel Luis Procedure Date: 11/29/2019 A #: [id number] Primary Physician: Gretchen Yoon Case #: [id number] File Name: [id number] Catheterization Order Number: [id number] [facility] Final Report [place], [place] Patient Name: Angel Luis Salinas ID#: [id number] : 1945 Procedure Date: November 29, [...] was designated as ASA Class IV. The [facility] clinical frailty scale is 4: Vulnerable. Diagnostic Tests: Electrocardiography: EKG was assessed by ECG. EKG was Abnorm al. EKG showed ST Deviation >= 0.5 mm. Medications Prior to Procedure: Aspirin. Indications for Diagnostic Cath: The priority of the diagnostic procedur e was Emergent. The indication for the laboratory sample carrier visit is ACS less than or equal [...] this intervention was 10%. The final TI CO flow was 2. Distal 90% Thrombectomy and [...] this intervention was 10%. The final TI CO flow was 2. Vascular Access: Vascular Access [...] prior t o arrival in the laboratory sample carrier. Recommended anti-platelet/anti-thrombot ic regimen: Continue aspirin 81 mg daily for indefi nitely. Continue clopidogrel 75 mg daily for 12 months then stop. These recommendations are made at the t loyda of the intervention. Patient and provider preferences or a changing clinical situation may require modification of this regimen. Consult [facility] Interventional Cardiology for questions. Conclusions: [...] 7.35 - [facility] 7.[address] [facility] LABORATORY POC PCO2 33 (L) 35 - 45 [facility] mmHg [facility] LABORATORY POC PO2 56 (L) 85 - 104 [facility] LABORATORY POC Base Excess -8.0 (L) -3.0 - 3.0 [facility] K mmol/L [facility] LABORATORY POC HCO3 17.4 (L) 20.0 - [facility] 26.0 [facility] mmol/[facility] POC Sodium 137 135 - 145 [facility] mmol/L [facility] LABORATORY POC Potassium 3.6 3.5 - 5.0 [facility] mmol/L [facility] POC Ionized Ca 1.15 1.15 - [facility] 1.33 [facility] P[facility] Hematocrit 37.0 (L) 40.0 - [facility] 51.0 % [facility] LABORATORY POC Calc Hgb 12.6 (L) 13.7 - [facility] 17.5 gm/dL [facility] LABORATORY Comment: The calculation of hemoglobin f rom hematocrit assumes a normal MCHC. POC Bgas Loc CC LAB [facility] LABORATORY Specimen Anatomical Collection Method Collection Time Receive d Time (Source) Location / / Volume Laterality Blood specimen 11/29/2019 9:17 AM 020 7:35 (specimen) EDT AM EDT Gretchen Yoon MD CHEMISTRY ORDERABLES Performing Organization Address City/State/[place] [address] EKG 12 Lead (11/29/2019 9:01 AM EDT) Component Value Ref Range Test Analysis Performed Pathologis t Method Time At Signature Ventricular rate 80 BPM MUSE SYSTEM Atrial Rate 79 BPM MUSE SYSTEM QRS Duration 94 ms MUSE SYSTEM Q-T Interval 436 ms MUSE SYSTEM QTC Calculated 502 ms MUSE SYSTEM (Bezet) Calculated R Leslie 54 degrees MUSE SYSTEM Calculated T Leslie 80 degrees MUSE SYSTEM INTERPRETATION Normal sinus rhythm MUSE SYSTEM Inferior infarct , possibly acute Prolonged QT * ACUTE CO ?? Consider right ventricular involvement in acute [...] ONCE, 1 dose, 12/06/19 at 0515, Ad radiology clerk over 120 Minutes magnesium sulfate 2 g [...] Provider: Nereyda Rice)1654 (New Bag - Provider: Amaay Anderson RN)1922 (Rate/Dose Change - Provider: Amaya Anderson RN) 0506 (New Bag - Provider: Russell Ventura RN)1228 (Stopped - Provider: mAaya Anderson RN) 1 mg/min (33.3333 mL/hr, rounded [...] Anderson RN)1220 (Rate/Dose Verify - Provider: Amaya nAderson RN) 0921 (Stopped - Provider: Amaya Anderson [...] Bentley, NIURKA) 0-8,000 Units, Intravenous, BOLUS [facility] PROTOCOL, Starting 12/06/19 at 0926, [...] Oral, EVERY 4 HOURS PRN, Startin g [place] 11/30/19 at 2016, Until Sun12/08/19 at 1811, hypokalemia
Administer for serum potassium (mMol/L) of 3.9 - 4 See instructions for Potassium Protocol in online policies.
Routine Or potassium chloride ER (K-Dur/Klor-Con) tablet 40 mEqJump to med 40 mEq, Oral, EVERY 4 HOURS PRN, Startin g [place] 11/30/19 at 2016, Until Sun12/08/19 at 1811, hypokalemia
Administer for serum potassium (mMol/L) of 3.6 - 3.8 See instructions for Potassium Protocol in online policies.
Routine documented in this encounter Care Teams Real Estate Services Administrator Relationship Specialty Start Date End Date France Lam MD PCP - General 05/02/13 02/04/20 [address] [place] [address] documented as of this encounter
--- OUTSIDE RECORDS SUMMARY | 2022-04-13 11:03 | XMS_ITS | Encounter Summary ---
:1945 Author Organization [facility] [place] [address] Care Team Providers Name Role Phone France Lam MD Primary Care Provider Encounter Details Date Type Department Care Team Description 11/29/2019 External Results [place] [address] Social History Tobacco Use Types Packs/Day [...] on filedocumented in this encounter Care Teams Wall Covering Installer Relationship Specialty Start Date End Date France Lam MD PCP - General 05/02/13 02/04/20 [address] [place] [address] documented as of this encounter
--- OUTSIDE RECORDS SUMMARY | 2022-04-13 11:03 | XMS_ITS | Encounter Summary ---
:1945 Author Organization [facility] [place] [address] Care Team Providers Name Role Phone France Lam MD Primary Care Provider Encounter Details Date Type Department Care Team Description 05/13/2013 Orders Only Vascular Surgery at [facility] (xi luis [facility] route sales driver disease) [facility] (Primary Dx) [place] [address] Social History Tobacco Use Types Packs/Day [...] unspecified documented in this encounter Care Teams Process Automation Engineer Relationship Specialty Start Date End Date France Lam MD PCP - General 05/02/13 02/04/20 [address] [place] [address] documented as of this encounter
--- OUTSIDE RECORDS SUMMARY | 2022-04-13 11:03 | XMS_ITS | Encounter Summary ---
:1945 Author Organization [facility] Address [address] [place] [address] Care Team Providers Name Role Phone France Lam MD Primary Care Provider Reason for Visit Reason Comments Claudication Encounter Details Date Type Department Care Team Description 05/13/2013 Office Visit Vascular Surgery at David Sim from [facility] MD Bobby peripheral vascular [facility] dis ease, left (Primary Drive DR Tennille) [place], [place] VASCULAR SURGERY [address] [place] [address] [phone] Social History Tobacco Use Types Packs/Day Years [...] unspecified documented in this encounter Care Teams Assistant Press Operator Offset Relationship Specialty Start Date End Date France Lam MD PCP - General 05/02/13 02/04/20 [address] [place] [address] documented as of this encounter
--- OUTSIDE RECORDS SUMMARY | 2022-04-13 11:03 | XMS_ITS | Encounter Summary ---
:1945 Author Organization [facility] [place] [address] Care Team Providers Name Role Phone France Lam MD Primary Care Provider Encounter Details Date Type Department Care Team Description 05/13/2013 Ancillary Vascular Surgery at Claritza Hall (Primary Appointment [facility] Cesilia [place], [place] Dx) [place] [phone] Social History Tobacco Use Types Packs/Day Years [...] Ref Test Analysis Performed At [facility] gist Range Method Time Signature VB Text VASCUBASE Report Department: Vascular Surgery Lab Patient: [id number] (ANGEL LUIS [place]) CPT Code: 55707 ICD-9: 440.21 Referring Physician: FRANCE LAM Indication: [...] Posterior Tibial (Ankle) Art derrell ??84 ?0.64 ??Bolivar- Biphasic ?? Interpretation: RIGHT: ??Mild lower extremity [...] tabase for comparison. Electronically Signed by: ALLAN GARCAI on 2013-05-13 10:1 1:25 AM VB Text [...] limb documented in this encounter Care Teams Pot Room Supervisor Relationship Specialty Start Date End Date France Lam MD PCP - General 05/02/13 02/04/20 [address] [place] [address] documented as of this encounter
[2022-04-18 10:57] VITALS: BP 116/61; PULSE 49; O2SAT 95
--- OUTSIDE RECORDS SUMMARY | 2022-04-18 10:58 | XMS_ITS | Encounter Summary ---
:1945 Author Organization [facility] Address [address] [place] [address] Care Team Providers Name Role Phone Jennifer Gomez SMOOTH AND BURR WORKER COMPOSITES Primary Care Provider Encounter Details Date Type Department Care Team Description 01/25/2022 Lab Requisition [facility] Outr Resulting Lab, Pathology & Laboratory Provider [facility] [address] [place], [place] [address] Social History Tobacco Use Types Packs/Day Years [...] Pathologist Sig nature Salmonella PCR Negative Negative [facility] SERVICES Shigella/Enteroinvasive Negative Negative [facility] LABORATORY SERVICES HN LAB CAMPYLOBACTER PCR Negative Negative [facility] Shiga Toxin PCR Negative Negative [facility]ORY SERVICES Specimen Feces - Specimen from rectum (specimen) Performing Organization Address City/State/ZIP Code Phon e Number [facility] [address] [place] [address] SERVICES documented in this encounter Visit Diagnoses Not on filedocumented in this encounter Care Teams Teacher'S Assistant Relationship Specialty Start Date End Date Jennifer Gomez, SMOOTH AND BURR WORKER COMPOSITES PCP - General 05/10/15 [facility] [address] [place], [place] [phone] documented as of this encounter
--- OUTSIDE RECORDS SUMMARY | 2022-04-18 10:58 | XMS_ITS | Clinical Summary ---
:1945 Author Organization [facility] [place] [address] Care Team Providers Name Role Phone Jovany Lott MD Primary Care Provider Allergies Active Allergy Reactions Severity Noted Date Comments Penicillins 05/13/2013 Pt doesn't gely mber reaction Jzfchmj-Wgf-Qdi Reductase 05/13/2013 St iff neck, upset stomach, [...] Address City/State/ZIP Code Phon e Number RAD [place], [place] from Last 3 Months Insurance Payer Benefit Plan / Subscriber ID Effective Dates Phone Addre ss Type Group MEDICARE MEDICARE PART [id number] 2019-Prese [phone] [place] [id number] [place] [id number] 2018-Presen [place] [place] [id number] Advance Directives Latest Code Status on File [...] capacity to make decision: Yes Care Teams Stunt Person Relationship Specialty Start Date End Date Jovany Lott MD PCP - General Family Medicine 02/05/20 [address] [place] [id number]
--- OUTSIDE RECORDS SUMMARY | 2022-04-18 10:58 | XMS_ITS | Encounter Summary ---
:1945 Author Organization [facility] Address [address] [place] [address] Care Team Providers Name Role Phone Jennifer Gomez EMERGENCY SERVICES DISPATCHER Primary Care Provider Encounter Details Date Type Department Care Team Description 02/15/2022 Lab Requisition [facility] Outr Resulting Lab, Pathology & Laboratory Provider [facility] [address] [place], [place] [address] Social History Tobacco Use Types Packs/Day Years [...] Free 9.3 (H) 2.8 - 5.3 pg/mL [facility] TORY SERVICES Specimen Blood - Venous blood (substance) Performing Organization Address City/State/ZIP Code Phon e Number [facility] [address] [place] [address] SERVICES documented in this encounter Visit Diagnoses Not on filedocumented in this encounter Care Teams Pierce And Shave Press Operator Relationship Specialty Start Date End Date Jennifer Gomez, EMERGENCY SERVICES DISPATCHER PCP - General 05/10/15 [facility] [address] [place], [place] [phone] documented as of this encounter
--- OUTSIDE RECORDS SUMMARY | 2022-04-18 10:58 | XMS_ITS | Encounter Summary ---
:1945 Author Organization [facility] Address [address] [place] [address] Care Team Providers Name Role Phone Jennifer Gomez SYSTEM SAFETY MANAGER Primary Care Provider Encounter Details Date Type Department Care Team Description 03/19/2019 Hospital Encounter [facility] Syl[facility] Unknown, Provider, [facility] [place] [facility] 0 [facility] [phone] [place] [address] (Work) [phone] Social History Tobacco Use Types Packs/Day Years Used Date Never Assessed Sex Assigned at Date Recorded Not on file documented as of this encounter Discharge Disposition Disposition Code Departure Means Destination Home or Self Snf documented in this encounter Plan of Treatment Not on filedocumented as of this encounter Visit Diagnoses Not on filedocumented in this encounter Care Teams Solutions Consultant Relationship Specialty Start Date End Date Jennifer Gomez, SYSTEM SAFETY MANAGER PCP - General 05/10/15 [facility] [address] [place], [place] [address] documented as of this encounter
--- OUTSIDE RECORDS SUMMARY | 2022-04-18 10:58 | XMS_ITS | Encounter Summary ---
:1945 Author Organization [facility] Address [address] [place] [address] Care Team Providers Name Role Phone Jennifer Gomez FUR COAT SEWER Primary Care Provider Encounter Details Date Type Department Care Team Description 02/07/2020 Lab Requisition [facility] Outr Resulting Lab, Pathology & Laboratory Provider [facility] [address] [place] [address] Social History Tobacco Use Types [...] (02/07/2020 7:59 EDT) COVID-19 rt-PCR NEGATIVE Negative [facility] Result Comment: LABORATORY 2019-novel Coronavirus [...] Organization Address City/State/ZIP Code Phon e Number [facility] [place], [place] COVID-19 TESTING (02/07/2020 7:59 EDT) COVID-19 rt-PCR NEGATIVE Negative [facility] Result Comment: LABORATORY 2019-novel Coronavirus [...] Administration's Emergency Use Authorization. Performing Lab [facility] LABORATORY SERVICES Specimen Swab Performing Organization Address City/State/ZIP Code Phon e Number [facility] [address] [place] [address] SERVICES [facility] [place], [place] documented in this encounter Visit Diagnoses Not on filedocumented in this encounter Care Teams Loan Adviser Relationship Specialty Start Date End Date Jennifer Gomez NP PCP - General 05/10/15 [facility] [address] [place], [place] [address] documented as of this encounter
--- OUTSIDE RECORDS SUMMARY | 2022-04-18 10:58 | XMS_ITS | Encounter Summary ---
:1945 Author Organization [facility] Address [address] [place] [address] Care Team Providers Name Role Phone Jennifer Gomez METAL BOX MAKER Primary Care Provider Encounter Details Date Type Department Care Team Description 09/07/2020 Lab Requisition [facility] Outr Resulting Lab, Pathology & Laboratory Provider [facility] [address] [place], [place] [address] Social History Tobacco Use Types Packs/Day Years Used Date Never Assessed Sex Assigned at Date Recorded Not on file documented as of this encounter Plan of Treatment Not on filedocumented as of this encounter Procedures Procedure Name Priority Date/Time Associated Diagnosis Comme nts COVID-19 TEST [facility] Today 09/07/2020 9:45 EST LAB PCR COVID-19 TESTING Routine 09/07/2020 9:45 EST Resu lts for this procedure are i n the results section. documented in this encounter Results COVID-19 TEST [facility] LAB PCR (09/07/2020 9:45 EST) Specimen Swab - Entire nasopharynx (body structur e) Performing Organization Address City/State/ZIP Code Phon e Number [facility] [address] [place] [address] SERVICES COVID-19 TESTING (09/07/2020 9:45 EST) COVID-19 rt-PCR Negative Negative [facility] Result Comment: CENTER LABORATORY This [...] developed and its performance characteristics determined by [facility]. It has not been [...] defined by the FDA Performed on the Uplogixo 7 Pro RT-PCR System. Performing Lab [facility] Lab [facility]ORAT[facility] SERVICES Specimen Swab Performing Organization Address City/State/ZIP Code Phon e Number [facility] [address] [place] [address] SERVICES documented in this encounter Visit Diagnoses Not on filedocumented in this encounter Care Teams Can Vacuum Tester Relationship Specialty Start Date End Date Jennifer Gomez NP PCP - General 05/10/15 [facility] [address] [place], [place] [address] documented as of this encounter
--- OUTSIDE RECORDS SUMMARY | 2022-04-18 10:58 | XMS_ITS | Encounter Summary ---
:1945 Author Organization [facility] Address [address] [place] [address] Care Team Providers Name Role Phone Unavailable Primary Care Provider Unavailable Encounter Details Date Type Department Care Team Description 09/02/[address] [facility] - Otis Patel MD conversion [address] [facility] [address] [place] [address] [place] [address] (Wo rk) Social History Tobacco Use Types [...] ANGEL LUIS SALINAS ? Accession #: ? [id number] ? : ? 1945 (Age: 58) ??M [...] of the lesion is recommended. ?? (Dr. Mascorro)/[facility] Microscopic Description: ? The epidermis is hype [...] and cords of similar melanocytes that show product assurance engineer maturation with descent. ??There is papillary dermal fibroplasia. ??(Dr. Mascorro)/[facility] Document reviewed and electronically signed by: Mai [...] entirely submitted in one cassette. ??(Dr Stephany Amador)/[facility] End of Report Specimen Performing Organization Address City/State/ZIP Code Phon e Number [facility] [address] [place] [address] SERVICES [facility] [address] [place] [address] documented in this encounter Visit Diagnoses Not on filedocumented in this encounter
--- OUTSIDE RECORDS SUMMARY | 2022-04-18 10:58 | XMS_ITS | Encounter Summary ---
:1945 Author Organization [facility] Address [address] [place] [address] Care Team Providers Name Role Phone Jennifer Gomez SOCIAL INSURANCE ANALYST Primary Care Provider Encounter Details Date Type Department Care Team Description 08/26/2021 Lab Requisition [facility] Najma Valladares for other Pathology & M, DO general examination Laboratory Medicine - [address] [facility] [address] [place] [phone] Social History Tobacco Use Types Packs/Day Years [...] 8:45 EST) Note to Patient The following [facility] pathology results have CENTER been interpreted by your LABORATORY pathologist and may be SERVICES available to you before your health provider has had the opportunity to review them. Please allow time for your provider to receive these results and explore management options, if applicable. Final Diagnosis A. RECTUM, POLYP, BIOPSY : [facility] - Polypoid submucosal anal glands. CENTER - Overlying rectal mucosa negative for dysplasia. LABORATORY - See comment. SERVICES Diagnosis Comment This rectal polyp shows a cantor bmucosal collection of anal duct glands causing a polypoid configuration. The morphology and the immunohistochemical profile are consistent with a benign (non-neoplastic) pro [facility] cess. Healthcare Administrative Assistant slides of this case were reviewed at the gastrointestinal/liver intradepartmental consultation conference. CENTER LABORATORY ANTIBODY(CLONE)(BLOCK):RESULT SERVICES CK7 (RN7, Leica) (A1): Strongly positive PAX-8 (MRQ-50, Coyle) (A1): Negative NKX3.1 (Rabbit Polyclonal, Biocare) (A1): Negative GATA3 (L50-823, Coyle) (A1): Negative NOTE: One or more of [...] laboratory testing. Attestation By the signature below, [facility] Elec tronically the attending physician CENTER sign ed by Odalis, certifies that they have LABORATORY Tami MD edna on 1) personally conducted SERVICES 2021 at 1309 a gross and/or microscopic examination of the described specimen(s), and/or personally interpreted the results of laboratory testing of the described specimen(s), and 2) personally rendered or confirmed the above diagnosis. Clinical History Flex sigmoidoscopy; [facility] diverticulosis, polyp CENTER LABORATORY SERVICES Gross Description A. [facility] Received in formalin mark d with proper patient identification (initials M, J) and rectal polyp is a marr-brown polyp, 0.6 x 0.5 x 0.4 cm. Bisected and entirely submitted in A1. CENTER LABORATORY ETSEFANY NICHOLS(ASCP) 08/26/2021 16:41 SE RVICES Performing Lab [facility] SERVICES Scanned Images [facility] SERVICES Specimen Tissue - Specimen from rectum (specimen) Performing Organization Address City/State/ZIP Code Phon e Number [facility] [address] [place] [address] SERVICES documented in this encounter Visit Diagnoses Diagnosis Encounter for other general examination documented in this encounter Care Teams Wax Pattern Repairer Relationship Specialty Start Date End Date Jennifer Gomez NP PCP - General 05/10/15 [facility] [address] [place] [address] documented as of this encounter
--- OUTSIDE RECORDS SUMMARY | 2022-04-18 10:58 | XMS_ITS | Encounter Summary ---
:1945 Author Organization [facility] Address [address] [place] [address] Care Team Providers Name Role Phone Jovany Lott MD Primary Care Provider Encounter Details Date Type Department Care Team Description 03/10/2022 Ancillary Procedure Radiology Library at Jovany Lott MD [facility] [address] [facility] [address] [place] [address] [phone] Social History Tobacco Use Types Packs/Day Years [...] Organization Address City/State/ZIP Code Phon e Number [place], [place] documented in this encounter Visit Diagnoses Not on filedocumented in this encounter Care Teams Rental Management Trainee Relationship Specialty Start Date End Date Jovany Lott MD PCP - General Family Medicine 02/05/20 [address] [place] [address] documented as of this encounter
--- OUTSIDE RECORDS SUMMARY | 2022-04-18 10:58 | XMS_ITS | Clinical Summary ---
:1945 Author Organization [facility] Address [address] [place] [address] Care Team Providers Name Role Phone Jennifer Gomez Bunny WOOL BROKER Primary Care Provider Encounters Date Type Specialty [...] Free 9.3 (H) 2.8 - 5.3 pg/mL [facility] TORY SERVICES Specimen Blood - Venous blood (substance) Performing Organization Address City/State/ZIP Code Phon e Number [facility] [address] [place] [address] SERVICES FECAL BACTERIAL PATHOGENS BY PCR (01/24/2022 14:50 EDT) Pathologist Sig nature Salmonella PCR Negative Negative [facility] SERVICES Shigella/Enteroinvasive Negative Negative [facility] LABORATORY SERVICES HN LAB CAMPYLOBACTER PCR Negative Negative [facility] ER LABORATORY SERVICES Shiga Toxin PCR Negative Negative [facility] SERVICES Specimen Feces - Specimen from rectum (specimen) Performing Organization Address City/State/ZIP Code Phon e Number [facility] [address] [place] [address] SERVICES from Last 3 Months Insurance Payer Benefit Plan Subscriber ID Effective Phone Address Typ e / Group Dates [employer] OF [employer] OF [id number] 2018-Prese [id number] [place] [address] MEDICARE MEDICARE A/B [id number] 2011-Pres [address] Medicare GL ent [id number] [place] [address] (Work) Jovany Hi Personal/Family Self [address] (Home) [place] [address] (Work) Jovany Hi Personal/Family Self [address] (Home) [place] [address] (Work) Care Teams Radiologic Therapist Relationship Specialty Start Date End Date Jennifer Gomez, WOOL BROKER PCP - General 05/10/15 [facility] [address] [place], [place] [phone]
--- OUTSIDE RECORDS SUMMARY | 2022-04-18 10:58 | XMS_ITS | Encounter Summary ---
:1945 Author Organization [facility] Address [address] [place] [address] Care Team Providers Name Role Phone Unavailable Primary Care Provider Unavailable Encounter Details Date Type Department Care Team Description 09/15/2003 Results Only [facility] - Otis Patel MD conversion [address] [facility] [address] [place] [address] [place] [address] (Wo rk) Social History Tobacco Use Types [...] ANGEL LUIS SALINAS ? Accession #: ? [id number] ? : ? 1945 (Age: 58) ??M ? Collect Date: ? 09/15/2003 ? Location: ? [facility] ? Receive Date: ? 004 ? Provider: OTIS MOSS MD Copy to: MALCOM MCGEE CONTENT DESIGNER ? Final Pathologic Diagnosis: ? Skin of [...] Address City/State/ZIP Code Phon e Number [facility] [address] [place] [address] SERVICES [facility] [address] [place] [address] documented in this encounter Visit Diagnoses Not on filedocumented in this encounter
--- OUTSIDE RECORDS SUMMARY | 2022-04-18 10:58 | XMS_ITS | Encounter Summary ---
:1945 Author Organization [facility] [place] [address] Care Team Providers Name Role Phone Jovany Lott MD Primary Care Provider Encounter Details Date Type Department Care Team Description 10/12/2020 Notes Only Cardiology at [facility] Willow Callejas, NIURKA [facility] [place] [address] Social History Tobacco Use Types Packs/Day [...] want totalk to my doctor at the [facility] and do a little more research before I decide what to do, I'm a little afraid of it. He notes that he has a scheduled clinic visit in November and will discuss with Dr. Garduno at that time. documented in this encounter Plan of Treatment Not on filedocumented as of this encounter Visit Diagnoses Not on filedocumented in this encounter Care Teams Snow Ranger Relationship Specialty Start Date End Date Jovany Lott MD PCP - General Family Medicine 02/05/20 [place] [phone] documented as of this encounter
--- OUTSIDE RECORDS SUMMARY | 2022-04-18 10:58 | XMS_ITS | Encounter Summary ---
:1945 Author Organization [facility] Address [address] [place] [address] Care Team Providers Name Role Phone Jennifer Gomez OPERATING ROOM REGISTERED NURSE Primary Care Provider Encounter Details Date Type Department Care Team Description 12/22/2019 Lab Requisition [facility] Outr Resulting Lab, Pathology & Laboratory Provider [facility] [address], [place] [id number] Social History Tobacco Use Types Packs/Day Years Used Date Never Assessed Sex Assigned at Date Recorded Not on file documented as of this encounter Plan of Treatment Not on filedocumented as of this encounter Procedures Procedure Name Priority Date/Time Associated Diagnosis Comme nts COVID-19 TEST [facility] Today 12/22/2019 10:38 LAB PCR EDT COVID-19 TESTING Routine 12/22/2019 10:38 Results for this EDT procedure are i n the results section. documented in this encounter Results COVID-19 TEST [facility] LAB PCR (12/22/2019 10:38 EDT) Specimen Swab - Entire nasopharynx (body structur e) Performing Organization Address City/State/ZIP Code Phon e Number [facility] [address] [place] [address] SERVICES COVID-19 TESTING (12/22/2019 10:38 EDT) COVID-19 rt-PCR Negative Negative [facility] Result Comment: [facility] Negative results do not prec lude 2019-nCoV infection and should not be used as the sole basis for treatment or other patient management decisions. Negative results must be combined with clinical observa SERVICES tions, patient history, and epidemiological informatio n. This test was developed and its performance characteristics determined by [facility]. It has not been cleared or approved [...] by the FDA Performed on the [employer] [address] Fast. Performing Lab AB [address] [facility] Lab [facility] SERVICES Specimen Swab Performing Organization Address City/State/ZIP Code Phon e Number [facility] [address] [place] [address] SERVICES documented in this encounter Visit Diagnoses Not on filedocumented in this encounter Care Teams Plate Stacker Relationship Specialty Start Date End Date Jennifer Gomez NP PCP - General 05/10/15 [facility] [address] [place], [place] [id number] documented as of this encounter
--- OUTSIDE RECORDS SUMMARY | 2022-04-18 10:59 | XMS_ITS | Encounter Summary ---
:1945 Author Organization [facility] [place] [address] Care Team Providers Name Role Phone France Lam MD Primary Care Provider Encounter Details Date Type Department Care Team Description 01/16/2020 Telephone Vascular Surgery at [facility] Ryan Tran, [place] [address] Social History Tobacco Use Types Packs/Day [...] fidelina. Ryan Tran, MSN, RN-BC, NCTTP Tobacco Waiter And Cashier [facility] Pager #[phone] documented in this encounter Plan of Treatment Not on filedocumented as of this encounter Visit Diagnoses Not on filedocumented in this encounter Care Teams New Accounts Clerk Relationship Specialty Start Date End Date France Lam MD PCP - General 05/02/13 02/04/20 [address] [place] [address] documented as of this encounter
--- OUTSIDE RECORDS SUMMARY | 2022-04-18 10:59 | XMS_ITS | Encounter Summary ---
:1945 Author Organization [facility] [place] [address] Care Team Providers Name Role Phone Jovany Lott MD Primary Care Provider Reason for Visit Consultation (Routine) - Closed Specialty Diagnoses / Procedures Referred By Contact Refer red To Contact Cardiology Diagnoses ST elevation (STEMI) myocardial infarction of unspecified site Hyperlipidemia, unspecified PeriDawit muhammad MD [place] [address] [place] [address] [address] [facility] D EPT [address] [place] [address] Fax: Referral ID Status Reason Start Date Expiration Date Visits V isits Requested Authorized [id number] Closed Consult, Test 02/10/2020 02/09/2021 [facility] PCP Updated and/or Approved Encounter Details Date Type Department Care Team Description 03/12/2020 TH Visit Cardiology at [facility] [place] Melina Payan Fredrickson type IIa hyperli poproteinemia; (TeleHealth) [facility] Hyperglycemia; [facility] Elevated TSH; [facility] Hypothyroidism, acquired [address] CARDIOLOGY DEPT [phone] [place], [place] [address] Social History Tobacco Use Types Packs/Day Years Used Date Former Smoker Cigars 0.5 Quit: 11/29/19 20 Smokeless Tobacco: Former User Comments: Quit chew tobacco years and y ears ago Sex Assigned at Date Recorded Not on file documented as of this encounter Progress Notes Melina Payan MD - 03/12/2020 1:00 PM EDT [facility] [place] [place] [facility]--Initial Consultation [...] Social History: 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 [...] medications for this visit. 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 He has multiple cardiovascular risk factors including peripheral artery disease, hyperlipidemia (elevated LDL, depressed HDL), a 30-qlin-adrr history of smoking, and prediabetes. Jovany quit [...] but Jovany replied: I can't drive to [facility] every 2 weeks for that. I explained [...] hypothyroidism documented in this encounter Care Teams Critical Care Registered Nurse Relationship Specialty Start Date End Date Jovany Lott MD PCP - General Family Medicine 02/05/20 [place] [address] documented as of this encounter
--- OUTSIDE RECORDS SUMMARY | 2022-04-18 10:59 | XMS_ITS | Encounter Summary ---
:1945 Author Organization [facility] [place] [address] Care Team Providers Name Role Phone France Lam MD Primary Care Provider Encounter Details Date Type Department Care Team Description 12/24/2019 Telephone Neurosurgery [place] [facility] [place] Cathy Jay [facility] [place] [address] Social History Tobacco Use Types Packs/Day [...] CT on 12/28. Faxed push request to [facility] Telephone Encounter - Elza Bradshaw - 12/25/2019 11:50 AM EDT Called [employer] Aleman underwriting sales representative I spoke with patient has plan N and does not require authorization. Order faxed with demos to [facility]. Postponing to allow time for scheduling. Telephone Encounter - Cathy Jay - 12/24/2019 11:42 AM EDT Patient needs f/u appointment(s): With [facility] on/around 01/13 3 weeks TOV, s/p Intracranial hemorrhage, [facility] prior 1. [employer] [place] ALLISON? ~~~~~~~~~~~~~~~~~~~~~~~~~~~~~~~~~~~~~~~~~~~~~~~~~~~~~~ Alfreda Salas APRN Sent: Maria Victoria December 23, 2019 ??7:39 PM To: P [facility] [place] Neurosurgery Wheat Cleaner Jovany Hi ( ) : 1945> ?? Follow-up and Dispositions Check-out Note: Follow up head CT and TOV in 3 weeks unless vision worsens or he develops new symptoms in meantime ([facility] for CT) documented in this encounter Plan of Treatment Not on filedocumented as of this encounter Visit Diagnoses Not on filedocumented in this encounter Care Teams Champion Of Sustainable Design Relationship Specialty Start Date End Date France Lam MD PCP - General 05/02/13 02/04/20 [address] [place] [address] documented as of this encounter
--- OUTSIDE RECORDS SUMMARY | 2022-04-18 10:59 | XMS_ITS | Encounter Summary ---
:1945 Author Organization [facility] Address [address] [place] [address] Care Team Providers Name Role Phone France Lam MD Primary Care Provider Encounter Details Date Type Department Care Team Description 12/18/2019 Ancillary Procedure Radiology Library at Debi Lam [facility] [address] [place] [address] [place] [address] [phone] Social History Tobacco Use Types Packs/Day Years [...] is for storage only. France Lam MD [facility] FILM LIBRARY ORDERABLES Performing Organization Address City/State/ZIP Code Phon e Number [place], [place] documented in this encounter Visit Diagnoses Not on filedocumented in this encounter Care Teams Poly Operator Relationship Specialty Start Date End Date France Lam MD PCP - General 05/02/13 02/04/20 [address] [place] [address] documented as of this encounter
--- OUTSIDE RECORDS SUMMARY | 2022-04-18 10:59 | XMS_ITS | Encounter Summary ---
:1945 Author Organization [facility] [place] [address] Care Team Providers Name Role Phone Jovany Lott MD Primary Care Provider Encounter Details Date Type Department Care Team Description 10/05/2020 Notes Only Cardiology Merlin Sanchez MD [facility] [place] [address] CARDIOLOGY DEPT. [phone] [place], [place] [address] (Wo rk) Social History Tobacco [...] have an anterior chicken wing anatomy Min Pateince 17.6 mm, Max Patience 23.9 mm, Mean Patience 20.7 mm These anatomic findings within the range appropriate for BEKAH-C with WM FLX Merlin Sanchez MD [facility] Pager [phone] documented in this encounter Plan of Treatment Not on filedocumented as of this encounter Visit Diagnoses Not on filedocumented in this encounter Care Teams Flag Decorator Relationship Specialty Start Date End Date Jovany Lott MD PCP - General Family Medicine 8/6/20 [address] [place] [address] documented as of this encounter
--- OUTSIDE RECORDS SUMMARY | 2022-04-18 10:59 | XMS_ITS | Encounter Summary ---
:1945 [place] [address] Care Team Providers Name Role Phone France Lam MD Primary Care Provider Encounter Details Date Type Department Care Team Description 12/29/2019 Ancillary Procedure Radiology Library at Ivette Salas [facility] [place] [address] [place] [address] [phone] (Wo rk) Social History Tobacco Use Types [...] is for storage only. Alfreda Salas APRN [facility] FILM LIBRARY ORDERABLES Performing Organization Address City/State/ZIP Code Phon e Number [place], [place] documented in this encounter Visit Diagnoses Not on filedocumented in this encounter Care Teams Civil Structural Designer Relationship Specialty Start Date End Date France Lam MD PCP - General 05/02/13 02/04/20 [address] [place] [address] documented as of this encounter
--- OUTSIDE RECORDS SUMMARY | 2022-04-18 10:59 | XMS_ITS | Encounter Summary ---
:1945 Author Organization [facility] Address [facility] [address] [place] [address] Care Team Providers Name Role Phone France Lam MD Primary Care Provider Encounter Details Date Type Department Care Team Description 12/30/2019 TH Visit Cardiology at [facility] Faustino Garduno Claudication from peripheral vascular disease, left ; (TeleHealth) [facility] MD Jaquan Hyperlipidemia, unspecified hyperlipidem ia type; Drive [facility] Acute ST elevation myocardia l infarction (STEMI) of inferior wall; [place], [place] Center Acute systolic CHF (congestive heart reid lure), NYHA class 3, MILVIA/AHA stage C; [address] [place], [place] Intracranial hemorrhage; [phone] Atrial fibrillation, unspecified type Social History Tobacco Use Types Packs/Day Years Used Date Current Every Day Smoker Cigars 0.5 Sex Assigned at Date Recorded Not on file documented as of this encounter Progress Notes Faustino aGrduno MD - 12/30/2019 3:40 PM EDT CARDIOLOGY [...] with ICH, bilateral PE; paroxysmal atrial fibrillation [[id number]: 5]; PAD; HLD; HTN; smoking and PFO,who [...] a non-culprit artery. S/P DESx3 in the unxdvzqn-pj-jowjns RCA. Aspiration thrombectomy performed, and integrellin bolus [...] with ICH, bilateral PE; paroxysmal atrial fibrillation [[id number]: 5]; PAD; HLD; HTN; smoking and PFO, who presents for post-discharge cardiovascular follow-up. CV issues are currently stable. Plan 1. CAD - CCS Class 0. Recovering well. He has completed 1 month of triple therapy. He may stop his aspirin, and resume clopidogrel and apixaban. Starting cardiac rehab. He wishes to pursue PCSK9 referral via the [place] system. 2. Afib - CHADS2-vasc 5, presently [...] 6 months Faustino Garduno MD Time spent: [id number] 0-5min [id number] 6-10min 5481JGT0 11-15min 1664CRV6 16-20min XXXX 4224UPK8 21-30min 9763WOC9 31-40min 7703GPE4 40+ min documented in this encounter Plan [...] type documented in this encounter Care Teams Assistant Guest Services Manager Relationship Specialty Start Date End Date France Lam MD PCP - General 05/02/13 02/04/20 [address] [place] [address] documented as of this encounter
--- OUTSIDE RECORDS SUMMARY | 2022-04-18 10:59 | XMS_ITS | Encounter Summary ---
:1945 Author Organization [facility] [place] [address] Care Team Providers Name Role Phone rFance Lam MD Primary Care Provider Encounter Details Date Type Department Care Team Description 01/09/2020 TH Visit [place]rology [place] [facility] Efrain Nicole, Intracranial hemorrhage; (TeleHealth) [facility] ESTEFANY Tobacco abuse; [facility] Cerebrovascular accident (CV A) due to embolism of right posterior cerebral artery [facility] [address] NEUROLOGY [phone] [place] [address] Social History Tobacco Use Types Packs/Day Years Used Date Current Every Day Smoker Cigars 0.5 Sex Assigned at Date Recorded Not on file documented as of this encounter Progress Notes Efrain Nicole PA - 01/09/2020 9:00 AM EDT Cerebrovascular Disease and Stroke Program [place] [address] t: [phone] / f: [phone] TELEPHONE ENCOUNTER Date of Appointment: 01/09/2020 I [...] had f/u head CT at [facility] which was stable with resolving known hemorrhage - has not resumed smoking -has been in touch with Dr. Sanchez for Watchman, deferred for duration of anticoagulation for PE Modified [place] Scale (MRS) 0: No symptoms at all [...] -advised vision/eye exam with his local provider ([facility]); consider referral to neuro-ophthalmology here in future [...] artery documented in this encounter Care Teams Special Forces Specialist Relationship Specialty Start Date End Date France Lam MD PCP - General 05/02/13 02/04/20 [address] [place] [address] documented as of this encounter
--- OUTSIDE RECORDS SUMMARY | 2022-04-18 10:59 | XMS_ITS | Encounter Summary ---
:1945 Author Organization [place] [place] [address] Care Team Providers Name Role Phone France Lam MD Primary Care Provider Encounter Details Date Type Department Care Team Description 12/23/2019 TH Visit Neurosurgery at [facility] [place] Alfreda Salas Intracranial (TeleHealth) [facility] C, [place] [address] Center [phone] [place] [address] Social History Tobacco Use Types Packs/Day Years Used Date Current Every Day Smoker Cigars 0.5 Sex Assigned at Date Recorded Not on file documented as of this encounter Progress Notes Alfreda Salas C, DISINTEGRATOR - 12/23/2019 1:30 PM EDT Images from [...] 2 week follow up head CT at [facility], showing slight decrease in size and attenuation [...] 3-4 weeks which may be done at [facility] with follow up TOV [facility]. Head CT 12/18/19 Assessment and Plan Jovany [...] hemorrhage documented in this encounter Care Teams Acute Care Registered Nurse Relationship Specialty Start Date End Date France Lam MD PCP - General 05/02/13 02/04/20 [address] [place] [address] documented as of this encounter
--- OUTSIDE RECORDS SUMMARY | 2022-04-18 10:59 | XMS_ITS | Encounter Summary ---
:1945 Author Organization [facility] Address [facility] [address] [place] [address] Care Team Providers Name Role Phone Jovany Lott MD Primary Care Provider Encounter Details Date Type Department Care Team Description 10/08/2020 Telephone Cardiology at [facility] [place] Faustino Garduno [place] [facility] [address] [place] [address] [phone] (Wo rk) Social History Tobacco Use Types [...] with Dr. Chou, his provider via the [place] (see my prior clinic note). His case was reviewed by our Watchman (left atrial appendage closure team). He has anatomy that would be conducive to closure, should he wish to pursue this for stroke prevention and ability to be off anticoagulation mcc. Left message for callback to our Structural Program (contact Willow Callejas APRN). If he is interested, I would be happy to offerscheduling for him. Faustino Garduno MD Pager [phone] documented in this encounter Plan of Treatment Not on filedocumented as of this encounter Visit Diagnoses Not on filedocumented in this encounter Care Teams Sales Contract Administrator Relationship Specialty Start Date End Date Jovany Lott MD PCP - General Family Medicine 02/05/20 [address] [place] [address] documented as of this encounter
--- OUTSIDE RECORDS SUMMARY | 2022-04-18 10:59 | XMS_ITS | Encounter Summary ---
:1945 Author Organization [facility] Address [facility] [address] [place] [address] Care Team Providers Name Role Phone Jovany Lott MD Primary Care Provider Encounter Details Date Type Department Care Team Description 08/31/2020 TH Visit Cardiology at [facility] Faustino Garduno Atrial fibrillation, unspeci fied type (Primary Dx); (TeleHealth) [facility] MD Jaquan Acute ST elevation myocardial infarction (STEMI) of inferior wall; [facility] Acute systolic CHF (congesti ve heart failure), NYHA class 3, MILVIA/AHA stage C; [place], [place] Center Hyperlipidemia, unspecified hyperlipidem ia type; [address] [place], [place] Intracranial hemorrhage; [phone] [address] PFO (patent foramen ovale); [phone] Claudication fr om peripheral vascular disease, left [...] with ICH, bilateral PE; paroxysmal atrial fibrillation [[id number]: 5]; PAD; HLD; HTN; smoking and PFO,who [...] appointment [facility]. However, he has not grossly noted that [...] a non-culprit artery. S/P DESx3 in the hsskzzhc-zo-rhlkef RCA. Aspiration thrombectomy performed, and integrellin bolus [...] with ICH, bilateral PE; paroxysmal atrial fibrillation [[id number]: 5]; PAD; HLD; HTN; smoking and PFO, [...] Will also discuss further with his local equine pharmacology technician, Dr. Mejia. 3. Bilateral PE - Case discussed with Dr. Sanchez above; likely provoked in lieu of his prolonged hospitalization. He has completed at least 6 months of oral A/C (coinciding treatment for his afib). 4. PAD - Continue optimal medical therapy for now. Will place referral for SET/walking program. F/U 3 months Faustino Garduno MD Time spent: 35 minutes Addendum 09/13/20: Called [phone] or [phone] and was able to speak to Dr. Faustino Chou. Pt also sees Dr. Lott in [facility] for local primary care needs. Dr. Chou [...] unspecified documented in this encounter Care Teams Day Care Center Director Relationship Specialty Start Date End Date Jovany Lott MD PCP - General Family Medicine 02/05/20 [place] [address] documented as of this encounter
--- OUTSIDE RECORDS SUMMARY | 2022-04-18 10:59 | XMS_ITS | Encounter Summary ---
:1945 Author Organization [facility] [place] [address] Care Team Providers Name Role Phone France Lam MD Primary Care Provider Reason for Visit Reason Onset Date Comments TeleHealth 12/22/2019 Appt 12/23/19 Encounter Details Date Type Department Care Team Description 12/22/2019 Telephone Neurosurgery at [facility] Alfreda Salas TeleHealth (Appt [facility] Devin Sebastian, SAFETY ASSOCIATE 12/23/19) [place] [address] [place] [address] [place] [address] Social History Tobacco Use Types Packs/Day [...] on filedocumented in this encounter Care Teams Janitor Custodian Relationship Specialty Start Date End Date France Lam MD PCP - General 05/02/13 02/04/20 [address] [place] [address] documented as of this encounter
--- OUTSIDE RECORDS SUMMARY | 2022-04-18 10:59 | XMS_ITS | Encounter Summary ---
:1945 Author Organization [facility] Address [facility] [place] [address] Care Team Providers Name Role Phone France Lam MD Primary Care Provider Encounter Details Date Type Department Care Team Description 12/22/2019 Telephone Cardiology Riki Stevens, [facility] [place] [address] [facility] [phone] GENERAL INTERNAL MEDICINE [place] [phone] (Wo rk) Social History Tobacco Use Types [...] on filedocumented in this encounter Care Teams Courtroom Reporter Relationship Specialty Start Date End Date France Lam MD PCP - General 05/02/13 02/04/20 [address] [place] [address] documented as of this encounter
--- OUTSIDE RECORDS SUMMARY | 2022-04-18 10:59 | XMS_ITS | Encounter Summary ---
:1945 [place] [address] Care Team Providers Name Role Phone France Lam MD Primary Care Provider Encounter Details Date Type Department Care Team Description 12/08/2019 Orders Only Neurosurgery at [facility] Natalia Delong, Intracranial [facility] [place] [address] Social History Tobacco Use Types Packs/Day Years Used Date Current Every Day Smoker Cigars 0.5 Sex Assigned at Date Recorded Not on file documented as of this encounter Plan of Treatment Not on filedocumented as of this encounter Visit Diagnoses Diagnosis Intracranial hemorrhage Unspecified intracranial hemorrhage documented in this encounter Care Teams Teacher Vocal Relationship Specialty Start Date End Date France Lam MD PCP - General 05/02/13 02/04/20 [address] [place] [address] documented as of this encounter
--- OUTSIDE RECORDS SUMMARY | 2022-04-18 10:59 | XMS_ITS | Encounter Summary ---
:1945 Author Organization [facility] [place] [address] Care Team Providers Name Role Phone France Lam MD Primary Care Provider Encounter Details Date Type Department Care Team Description 12/08/2019 Telephone Neurosurgery at [facility] [place] [address] Social History Tobacco Use Types Packs/Day Years Used Date Current Every Day Smoker Cigars 0.5 Sex Assigned at Date Recorded Not on file documented as of this encounter Miscellaneous Notes Telephone Encounter - Elza Bradshaw - 12/22/2019 6:[address] in [facility] Telephone Encounter - Elza Bradshaw - 12/18/2019 3:43 PM EDT Left message at [facility] requesting they call back to advise if patient has been scheduled for CT. Telephone Encounter - Sarah Boucher - 12/08/2019 3:[address] order to [facility] to schedule, 12/16-12/18 for 12/22 TOV scheduled w/[facility] Telephone Encounter - Sarah Boucher - 12/08/2019 9:50 AM EDT RN, please put in CT order external=[facility] called not able to come to [facility] on 12/[address] requested to have CT locally at [facility] call w/results. documented in this encounter Plan of Treatment Not on filedocumented as of this encounter Visit Diagnoses Not on filedocumented in this encounter Care Teams Cloth Stretcher Relationship Specialty Start Date End Date France Lam MD PCP - General 05/02/13 02/04/20 [address] [place] [address] documented as of this encounter
--- OUTSIDE RECORDS SUMMARY | 2022-04-18 10:59 | XMS_ITS | Encounter Summary ---
:1945 Author Organization [facility] [place] [address] Care Team Providers Name Role Phone France Lam MD Primary Care Provider Reason for Visit Reason Onset Date Comments TeleHealth 01/12/2020 Encounter Details Date Type Department Care Team Description 01/12/2020 Telephone Neurosurgery at [facility] Alfreda Salas, TeleHealth [facility] Devin [address] [address] [facility] [phone] [place], [place] [address] (Wo rk) Social History Tobacco Use Types Packs/Day Years Used Date Current Every Day Smoker Cigars 0.5 Sex Assigned at Date Recorded Not on file documented as of this encounter Miscellaneous Notes Telephone Encounter - Alfreda aHn RN - 01/12/2020 10:16 AM EDT Unable to reach this patient by phone to review medications and allergies prior to upcoming tele-appointment scheduled with Neurosurgery provider. No message left. documented in this encounter Plan of Treatment Not on filedocumented as of this encounter Visit Diagnoses Not on filedocumented in this encounter Care Teams Supervisor Purification Relationship Specialty Start Date End Date France Lam MD PCP - General 05/02/13 02/04/20 [address] [place] [address] documented as of this encounter
--- OUTSIDE RECORDS SUMMARY | 2022-04-18 10:59 | XMS_ITS | Encounter Summary ---
:1945 Author Organization [facility] Address [address] [place] [address] Care Team Providers Name Role Phone France Lam MD Primary Care Provider Reason for Visit Reason Onset Date Comments TeleHealth 01/08/2020 Appt 01/09/20 Encounter Details Date Type Department Care Team Description 01/08/2020 Telephone [place]rology [place] [facility] Efrain Nicole PA TeleHealth (Appt [facility] [address] [place] [address] NEUROLOGY [phone] [place], [place] [address] (Wo rk) Social History Tobacco [...] on filedocumented in this encounter Care Teams Railroad Cook Relationship Specialty Start Date End Date France Lam MD PCP - General 05/02/13 02/04/20 [address] [place] [address] documented as of this encounter
--- OUTSIDE RECORDS SUMMARY | 2022-04-18 11:00 | XMS_ITS | Encounter Summary ---
:1945 Author Organization [facility] [place] [address] Care Team Providers Name Role Phone France Lam MD Primary Care Provider Encounter Details Date Type Department Care Team Description 11/30/2019 Orders Only Cardiology [facility] [place] [address] Social History Tobacco Use Types Packs/Day [...] fajardo ? (Age): 1945(74y) Med Rec#: ? [id number] ?Sex: ?M ? Site Loc: ? Ht / Wt: ??(cm)/ (kg) ? Pt. Loc: ? Study Date: ?? 11/29/2019 ?Pt. Type: Tape: ? Referring: Faustino Garduno Reading: Dawit Mejia ([id number]) Outreach Clinician: [employer] Glass Selector: Cedric Eric ([id number]) Interpreting Fellow: Cedric Eric ([phone] [id number]) Diagnosis: SUMMARY: 1. Limited bedside echocardiogram perfor med by immigration case manager sandblast carver for hypotension following inferior STEMI . 2. [...] ? Mid-Inferior ?Akinetic ? Mid-Inferoseptal ?Hypokinetic ? [place]-Septal ? Normal ? [place]-Anterior ? Normal ? [place]-Lateral ?Normal ? [place]-Inferior ? Hypokinetic ? [place]-Tip ?Normal ? This report has been electronically sign ed by: _ Dawit Mejia MD ? 11/30/2019 12: 53:59 Images reviewed and interpretation rafaela [email or web address] [facility] Cardiac Ultrasound Laboratory Procedure Note Dawit Mejia MD - 11/30/2019Formatti ng of this note might be different from the original. Procedure: Transthoracic Echocardiogram Patient: domenica ACOSTA(Age): 6(74y) Med Rec#: [id number] Sex: M Site Loc: Ht / Wt: (cm)/ (kg) Pt. Loc: Study Date: 11/29/2019 Pt. Type: Tape: Referring: Faustino Garduno Reading: Dawit Mejia ([id number]) Outreach Clinician: [facility] Glass Selector: Cedric Eric ([id number]) Interpreting Fellow: Cedric Eric ([id number]) Diagnosis: SUMMARY: 1. Limited bedside echocardiogram perfor med by immigration case manager sandblast carver for hypotension following inferior STEMI . 2. [...] Normal Mid-Posterolateral Akinetic Mid-Inferior Akinetic Mid-Inferoseptal Hypokinetic [place]-Septal Normal [place]-Anterior Normal [place]-Lateral Normal [place]-Inferior Hypokinetic [place]-Tip Normal This report has been electronically sign ed by: _ Dawit Mejia MD 11/30/2019 12:53:59 Images reviewed and interpretation verif ied [facility] Cardiac Ultrasound Laboratory Unknown ECHO ORDERABLES documented in this encounter Visit Diagnoses Not on filedocumented in this encounter Care Teams Referral Manager Relationship Specialty Start Date End Date France Lam MD PCP - General 05/02/13 02/04/20 [address] [place] [address] documented as of this encounter
--- OUTSIDE RECORDS SUMMARY | 2022-04-18 11:00 | XMS_ITS | Encounter Summary ---
:1945 Author Organization [facility] [place] [address] Care Team Providers Name Role Phone France Lam MD Primary Care Provider Reason for Referral Consultation (Routine) - Specialty Diagnoses / Procedures Referred By Contact Refer red To Contact Cardiology Diagnoses Acute ST elevation myocardial infarction (STEMI) of inferior wall Darrell Glasgow MD [facility] [place] [address] Referral ID Status Reason Start Date Expiration Date Visits V isits Requested Authorized [id number] Consult, 12/08/2019 06/05/2020 1 1 Test & Treat Consultation (Routine) - Closed Specialty Diagnoses / Referred By Contact Referred To Contact Procedures Cardiac Rehabilitation Diagnoses ST elevation myocardial infarction involving right coronary artery Gretchen Yoon, Cardiac Rehab, [address] [place] [address] Fax: Referral ID Status Reason Start Date Expiration Date Visits V isits Requested Authorized [id number] Closed Consult, 12/08/2019 06/05/2020 36 36 Test & Treat Reason for Visit Auth/Cert Specialty Diagnoses / Procedures Referred By Contact Refer red To Contact Diagnoses STEMI (ST elevation myocardial infarction) STEMI Procedures CARDIAC CATHETERIZATION Referral ID Status Reason Start Date Expiration Date Visits Requ ested Visits Authorized [id number] 1 1 Encounter Details Date Type Department Care Team Description 11/29/2019 - Hospital Encounter Cardiac Special YoungBarbra MD [facility] [place] [address] ST elevation myocardial infarction invol ving left main coronary artery; 12/08/2019 Care Unit Paris Lozano MD [facility] [place] [address] ST elevation myocardial infarction invol ving right coronary artery; [facility] Edema of upper extremity; Hospital Intracranial hemorrhage; [facility] Paroxysma l atrial fibrillation; Drive Acute pulmonary embolism, un specified pulmonary embolism type, unspecified whether acute cor pulmonale present; [place], [place] Acute ST elevat ion myocardial infarction (STEMI) of inferior wall [id number] Social History Tobacco Use Types Packs/Day Years [...] Luis Salinas Patient Age: 74 y.o. Language: Albanian Race: White Ethnicity: Not nor Admit date: [...] months on: antiplatelet therapy at discretion of conference producer - Repeat TTE in 3 months to reassess LV function - Repeat BMP in 1-2 weeks given recent start lisinopril - Referred to lipid clinic for consideration of PCSK-9 inhibitor given STEMI with intolerance of statins - Started on amiodarone this admission for recurrent rapid atrial flutter with rates ~170, recommendcontinued assessment of necessity of rhythm control strategy with conference producer - Amiodarone monitoring recommendations as below - [...] please contact your inpatient physician through the [facility] Nurse Practitioner Per Diem . Issues after hours and on weekends [...] took two full strength aspirinand came to [facility] ED. At there was found [...] and Compazine. He was transferred directly to [facility] via [facility] for further management. Patient had an emergent PCI with 3 MACARIO stents placed to his RCA, with mild disease of LCX (report pending) at [facility]. He was found to be persistently hypotensive requiring Levo up to 10mcg/min. He was transferred to [facility] after the cath procedure. Bedside RHC showed CI 2.12, PAWP 11, PAP 38/15 indicating hypovolemic state. He received 1L bolus of NS with improvement of his blood pressure to 124/61. History of PAD, HLD - had side reactions to statins - so taking niacin and red rye grain. Chronic active smoker with more than 65 pack years. Family history of SC in father and two uncles. He's takingbaby [...] drip as described above. On arrival at [facility] he was taken for cardiac cath where [...] below. Electronically signed by: Anegl Luis [facility] ([phone]), at 11/30/2019 12:[address] Head wo [...] signed by: Angel Luis Barboza [facility] ([phone]), at 11/30/2019 5:[address] Angiogram [place] (Exam End: 11/30/2019 4:36 PM) Impression Head CT: Stable hemorrhage in the region of the left optic tract. CTA: Negative exam. No abnormal vasculature in the area of hemorrhage. Thank you for letting us participate in the care of this patient. For questions regarding this report, please contact the number below. Electronically signed by: Angel Luis Barboza MD, [facility] ([phone]), at 11/30/2019 5:04 PM MRI Brain wo [...] signed by: Angel Luis Barboza MD, [facility] ([phone]), at 12/01/2019 8:02 PM XR Chest One [...] ??? Penicillins Pt doesn't remember reaction ??? Zqlktpn-Gax-Azk Reductase Inhibitors Stiff neck, upset stomach, back [...] medications at another hospital and then at [facility] you had a stent placed in a [...] FOR ONE MONTH AND THEN STOP. Your conference producer may tell you to start this medication again after one year. Clopidogrel (Plavix) 75 mg daily - This medication will help prevent clots from forming in your blood, which will help protect the stent that was placed in your heart vessel. TAKE THIS FOR ONE YEAR ANDTHEN DISCUSS WITH YOUR ON SITE MANAGER WHETHER TO STOP. Amiodarone 400mg twice daily [...] follow up: Your primary care provider and conference producer will manage your blood thinner (apixaban). You do not need lab monitoring of this medication. Diet: Please consume a healthy diet low in cholesterol Follow up Appointments: 12/10/2019 at 3:10PM with PCP Angel Luis Lott Future Appointments Date Time Provider Department Center 12/23/2019 1:30 PM Alfreda Salas APRN [address] 12/26/2019 9:40 AM Merlin Sanchez MD [facility] CARD 4A [facility] 12/30/2019 3:40 PM Gretchen Yoon MD [facility] 4A [facility] Future Appointments and Orders Future Appointments and Orders Future Appointments Provider Department Dept Phone 12/23/2019 1:30 PM Alfreda Salas APRN Neurosurgery at [facility] Arrive at: Home [phone] Please do not come in for this visit. Your provider will call you at the number you provided. 12/26/2019 9:40 AM Merlin Sanchez MD Cardiology at [facility] Arrive at: Home [phone] Please do not come in for this visit. Your provider will call you at the number you provided. 12/30/2019 3:40 PM Gretchen Yoon MD Cardiology at [facility] Arrive at: Home [phone] Please do not come in for this visit. Your provider will call you at the number you provided. Future Orders Complete By Expires Referral to Cardiac Rehab [FCJ882 Custom] As directed Process Instructions: If no progress note charted, please enter Clinical details in comments. Scheduling Instructions: Questions: My question or request is: STEMI. Cardiac rehab at [facility] Referral to [facility] [REF43 Custom] As directed Process Instructions: If no progress note charted, please enter Clinical details in comments. Scheduling Instructions: Questions: My question or request is: patient with inferior stemi with history of statin allergy (rash) - please evaluate for psck9 inhibitor. Referral to Home Health - at DISCHARGE [HTT4043 CPT(R)] As directed Process Instructions: Scheduling Instructions: Comments: DOCUMENTATION FOR VNA SERVICES PATIENT'S LOCATION: [address] [phone] (home) Ostrich Farmer's Name: Self In discussion with the attending physician, it is certified that this patient is under his/her care and that MD, or an MICA PARTS SPRAYER, CABLE MAINTAINER, or PA who is working directly with him/her, had a nqqc-no-givh encounter that meets the physician xhdh-kn-ahgc encounter requirements with this patient on 12/07/2019. [...] – [facility], PHONE: [phone] FAX: [phone] Start of care: 24-48 hours after hospital [...] MD [address] / [place] [address] All A agencies which cover the area [...] info: PCP Your PCP: France Lam MD [phone] For questions regarding this document or issues relating to this hospitalization on the Cardiology Service, please contact your inpatient physician through the [facility] Nurse Practitioner Per Diem . Issues after hours and on weekends will be handled by the Junior Net Developer on-call. Patient Instructions: Neurology Your Diagnosis: Left [...] follow-up appointment in the neurology clinic at [facility]. See below for the appointment time. If [...] 1:30 PM Alfreda Salas APRN Neurosurgery at [facility] Arrive at: Home [phone] Please do not come in for this visit. Your provider will call you at the number you provided. 12/26/2019 9:40 AM Merlin Sanchze MD Cardiology at [facility] Arrive at: Home [phone] Please do not come in for this visit. Your provider will call you at the number you provided. 12/30/2019 3:40 PM Gretchen Yoon MD Cardiology at [facility] Arrive at: Home [phone] Please do not come in for this visit. Your provider will call you at the number you provided. Future Orders Complete By Expires Referral to Cardiac Rehab [[id number] Custom] As directed Process Instructions: If no progress note charted, please enter Clinical details in comments. Scheduling Instructions: Questions: My question or request is: STEMI. Cardiac rehab at [facility] Referral to [facility] [REF43 Custom] As directed Process Instructions: If no progress note charted, please enter Clinical details in comments. Scheduling Instructions: Questions: My question or request is: patient with inferior stemi with history of statin allergy (rash) - please evaluate for psck9 inhibitor. Referral to Home Health - at DISCHARGE [[id number] CPT(R)] As directed Process Instructions: Scheduling Instructions: Comments: DOCUMENTATION FOR VNA SERVICES PATIENT'S LOCATION: [address] [phone] (home) Ostrich Farmer's Name: Self In discussion with the attending physician, it is certified that this patient is under his/her care and that MD, or an MICA PARTS SPRAYER, CABLE MAINTAINER, or PA who is working directly with him/her, had a kfwd-am-bbez encounter that meets the physician hqhq-dj-tnea encounter requirements with this patient on 12/07/2019. [...] – [facility], PHONE: [phone] FAX: [phone] Start of care: 24-48 hours after hospital [...] France Lam MD [address] / [facility] [address] All A agencies which cover the area [...] contact info: PCP Discharge References/Attachments Atrial Fibrillation (Albanian) Cardiac Rehabilitation (Albanian) Heart Failure (Albanian) Heart Failure: Limiting Sodium (Albanian) Hemorrhagic Stroke: General Info (Albanian) Smoking: Stopping (Albanian) Stroke Rehabilitation: General Info (Albanian) Pulmonary Embolism (Albanian) Riki Stevens MD PGY-3, Internal Medicine Cardiology S2, #3164 Associated attestation - Paris Dodd MD - 12/09/2019 4:44 PM EDT Cardiology Attending Discharge Addendum I was the assigned attending conference producer for this clinical encounter. For the purposes [...] complications include novel onset, paroxysmal atrial fibrillation [[id number]: 5] & L-sided diplopia with potential hemineglect [...] My contact information: Paris Matt MD MPH [place] [phone] (office); Pager #[phone] Email: [email or web address] documented in this encounter Discharge Instructions Patient InstructionsFiRiki de jesus MD - 12/02/2019 9:56 AM EDT Images from the original note were not included. Why you were hospitalized: You had a heart attack. You received clot-busting medications at another hospital and then at [facility] you had a stent placed in a [...] FOR ONE MONTH AND THEN STOP. Your conference producer may tell you to start this medication again after one year. Clopidogrel (Plavix) 75 mg daily - This medication will help prevent clots from forming in your blood, which will help protect the stent that was placed in your heart vessel. TAKE THIS FOR ONE YEAR ANDTHEN DISCUSS WITH YOUR ON SITE MANAGER WHETHER TO STOP. Amiodarone 400mg twice daily [...] follow up: Your primary care provider and conference producer will manage your blood thinner (apixaban). You do not need lab monitoring of this medication. Diet: Please consume a healthy diet low in cholesterol Follow up Appointments: 12/10/2019 at 3:10PM with PCP Angel Luis Lott Future Appointments Date Time Provider Department Center 12/23/2019 1:30 PM Alfreda Salas APRN [facility] [id number] [facility] 12/26/2019 9:40 AM Merlin Sanchez MD [facility] CARD 4A [facility] 12/30/2019 3:40 PM Gretchen Yoon MD [facility] CARD 4A [facility] Future Appointments and Orders Future Appointments and Orders Future Appointments Provider Department Dept Phone 12/23/2019 1:30 PM Alfreda Salas APRN Neurosurgery at [facility] Arrive at: Home [phone] Please do not come in for this visit. Your provider will call you at the number you provided. 12/26/2019 9:40 AM Merlin Sanchez MD Cardiology at [facility] Arrive at: Home [phone] Please do not come in for this visit. Your provider will call you at the number you provided. 12/30/2019 3:40 PM Gretchen Yoon MD Cardiology at [facility] Arrive at: Home [phone] Please do not come in for this visit. Your provider will call you at the number you provided. Future Orders Complete By Expires Referral to Cardiac Rehab [[id number] Custom] As directed Process Instructions: If no progress note charted, please enter Clinical details in comments. Scheduling Instructions: Questions: My question or request is: STEMI. Cardiac rehab at [facility] Referral to [facility] Treatment Center [REF43 Custom] As directed Process Instructions: If no progress note charted, please enter Clinical details in comments. Scheduling Instructions: Questions: My question or request is: patient with inferior stemi with history of statin allergy (rash) - please evaluate for psck9 inhibitor. Referral to Home Health - at DISCHARGE [[id number] CPT(R)] As directed Process Instructions: Scheduling Instructions: Comments: DOCUMENTATION FOR VNA SERVICES PATIENT'S LOCATION: [address] [phone] (home) Ostrich Farmer's Name: Self In discussion with the attending physician, it is certified that this patient is under his/her care and that MD, or an MICA PARTS SPRAYER, CABLE MAINTAINER, or PA who is working directly with him/her, had a oxum-fn-dcyw encounter that meets the physician lppu-yf-hsnw encounter requirements with this patient on 12/07/2019. [...] – [facility], PHONE: [phone] FAX: [phone] Start of care: 24-48 hours after hospital [...] MD [address] / [place] [address] All A agencies which cover the area [...] info: PCP Your PCP: France Lam MD [phone] For questions regarding this document or issues relating to this hospitalization on the Cardiology Service, please contact your inpatient physician through the [facility] Nurse Practitioner Per Diem . Issues after hours and on weekends will be handled by the Junior Net Developer on-call. Patient Instructions: Neurology Your Diagnosis: Left [...] follow-up appointment in the neurology clinic at [facility]. See below for the appointment time. If you do not have an appointment, you will be called with a time/date for this appointment. ??? Primary Care Provider: Please follow up with your Primary Care Provider within one to 2 weeks ofdischarge. AttachmentsThe following attachments cannot be sent through Care Everywhere. Atrial Fibrillation (Albanian)Cardiac Rehabilitation (Albanian)Heart Failure (Albanian)Heart Failure: Limiting Sodium (Albanian)Hemorrhagic Stroke: General Info (Albanian)Smoking: Stopping (Albanian)Stroke Rehabilitation: General Info (Albanian)Pulmonary Embolism (Albanian)documented in this encounter Medications at Time of [...] at the moment. Telemetry and IVs d/michael. D/michale to personal vehicle. Discharge summary faxed to [...] consulted in the interim. Vikash Rodriguez Pager: [phone] aPris Dodd MD - 12/08/2019 8:57 AM EDT [...] complications include novel onset, paroxysmal atrial fibrillation [QPQ6KH7UJRN: 5] & L-sided diplopia with potential hemineglect [...] consulted in the interim. Vikash Rodriguez Pager: [phone] Paris Dodd MD - 12/07/2019 9:55 AM [...] complications include novel onset, paroxysmal atrial fibrillation [AXH7CM2UOOJ: 5] & L-sided diplopia with potential hemineglect [...] complications include novel onset, paroxysmal atrial fibrillation [FNY5DV3EGYN: 5] & L-sided diplopia with potential hemineglect [...] complications include novel onset, paroxysmal atrial fibrillation [XRN3FU8QURT: 5] & L-sided diplopia with potential hemineglect [...] today; additional complications include paroxysmal atrial fibrillation [EXX8IP3FKUM: 4] c/b possible cardioembolic stroke, ICH from [...] length from neck/greatest diameter to back wall: HONDURAN 91, CAU 13: 19 mm CORTES 1, [...] a non-culprit artery. S/P DESx3 in the waxxiszz-pd-mqgkgy RCA. Aspiration thrombectomy performed, and integrellin bolus [...] complications include novel onset, paroxysmal atrial fibrillation [SEF9FG4OHVL: 5] & L-sided diplopia with potential hemineglect [...] R occipital cardioembolic stroke #Paroxysmal Afib with SL3WQYBH3K score of 5 #New segmental bilateral PEs [...] Glasgow MD PGY1, Internal Medicine Cardiology S2, #2549 Associated attestation - Paris Dodd MD - 12/05/2019 2:59 PM EDT I was the assigned attending conference producer for this clinical encounter. For the purposes [...] 12/04/2019 10:36 AM EDT Office of Care Management(OCM)/Rural Mail Contractor(CM)/Discharge Planning Service: Cardiology S2 team CM Bernie Alexander,RN,BSN,MA,ACM pgr [phone] Reviewed record and in Cardiology Rounds with MD team,CMs, machine shop supervisor, ADULT NEUROPSYCHOLOGIST. Pt is anticipated ready for d/c later today. Met w pt re d/c plan and he continues to agree with home PT/OT/RN w [employer]. His son is bringing his to pick him up together. Discussed Advance Directives and DPOAH- he states he has at home and designated his as primiary; he thought his PCP would have copy. Tel call to PCP who notes no DPOAH on file. Encouraged pt to take his AD to his PCP and to any [facility] appt for each to have on file. [...] complications include novel onset, paroxysmal atrial fibrillation [YQG0RS8CLBS: 4] & L-sided diplopia with potential hemineglect [...] a non-culprit artery. S/P DESx3 in the yjpmnnyo-tq-yfraop RCA. Aspiration thrombectomy performed, and integrellin bolus [...] complications include novel onset, paroxysmal atrial fibrillation [XBG1VJ9LGSI: 5] & L-sided diplopia with potential hemineglect [...] R occipital cardioembolic stroke #Paroxysmal Afib with WQ5RGQVP8N score of 5 - No anticoagulation for [...] Glasgow MD PGY1, Internal Medicine Cardiology S2, #8510 I have seen the patient and reviewed [...] in my clinic. Gretchen Yoon MD Pager [phone] Derian Pascual RN - 12/03/2019 9:29 AM [...] Discharge: None Electronically signed: Derian Pascual RN, Rural Mail Contractor Pgr: [phone] 12/03/2019 9:29 AM Gretchen Yoon [...] complications include novel onset, paroxysmal atrial fibrillation [PVZ1SL4ZBCY: 4] & L-sided diplopia with potential hemineglect [...] a non-culprit artery. S/P DESx3 in the zbsiprxy-cf-uloegn RCA. Aspiration thrombectomy performed, and integrellin bolus [...] complications include novel onset, paroxysmal atrial fibrillation [YTT1EN4GRHS: 5] & L-sided diplopia with potential hemineglect [...] [facility] and follow up with his PCP. Patient voiced strong will to quit smoking now, understood that we have resources available for help. Plan [P]: --Neurologic-- # Concern for Left-Sided Diplopia, r/o Hemineglect # Concern for CVA, last-known well 11/29/19 - MRI showed possible cardioembolic stroke #Afib with EK7LVOBC4H score of 5 - Stroke Team Consulted; [...] Anticoagulation/Arrhythmia # Novel Onset, Paroxsymal Atrial Fibrillation [VNP6RU8QFWA: 5] - Hold off anticoagulation for at [...] w straight cath prn # Nutrition - [facility] Diet, 2g Na. -- Hematology/Oncology-- # Mild [...] Glasgow MD PGY1, Internal Medicine Cardiology S2, #3502 I have seen the patient and reviewed the resident's above history and I agree with the details as written. The assessment and plan were formulated in discussion with me and I agree with them as documented. Gretchen Yoon MD Pager [phone] Raul Hein RN - 12/03/2019 5:55 AM [...] Negative mcL Appearance UA Clear Clear Spec [place] UA 1.026 1.006 - 1.030 Color UA [...] PGY3 Neurology Resident 12/01/2019 Vascular Neurology Pager [phone] Neurology Attending Attestation I evaluated the patient [...] documented. Deepthi Roman MD Vascular Neurology Standard [facility] Swallow Screen: This screen is to be [...] diet as medical provider deems appropriate. Consider INTER COM SERVICER consult for full evaluation and diet recommendations. [...] complications include novel onset, paroxysmal atrial fibrillation [XOQ2EZ0HGHW: 4] & L-sided diplopia with potential hemineglect [...] a non-culprit artery. S/P DESx3 in the bxbnflpf-yr-ysqojy RCA. Aspiration thrombectomy performed, and integrellin bolus [...] complications include novel onset, paroxysmal atrial fibrillation [OJM4UX5TWOU: 5] & L-sided diplopia with potential hemineglect [...] Anticoagulation/Arrhythmia # Novel Onset, Paroxsymal Atrial Fibrillation [KWQ1TQ7OOCK: 5] - Hold off anticoagulation - pending [...] tamsulosin d/t low BP. # Nutrition - [facility] Diet -- Hematology/Oncology-- # Mild Thrombocytopenia, unclear [...] Glasgow MD PGY1, Internal Medicine Cardiology S2, #2137 I have seen the patient and reviewed [...] the ICU team. Gretchen Yoon MD Pager [phone] Natalia Claros APRN - 12/02/2019 8:38 AM [...] - We are signing off. Please page [phone] with any questions or concerns. For questions please call NS pager [phone] Natalia Claros APRN 12/02/2019 8:38 AM Clinical Documentation Improvement: Active Hospital Problems Diagnosis ??? Acute ST elevation myocardial infarction (STEMI) of inferior wall ??? Intracranial hemorrhage ??? Hyperlipidemia ??? Tobacco abuse ??? Claudication from peripheral vascular disease, left Resolved Hospital Problems No resolved problems to display. Tello Hsu, RELIEF MATE - 12/02/2019 2:06 AM EDT 06/01/20 2010 [...] Scan in afternoon. Upon arrival back in [facility] placed on low flow NC [...] complications include novel onset, paroxysmal atrial fibrillation [BCO1SG9NFKS: 4] & L-sided diplopia with potential hemineglect for which CVA evaluationto be pursued. Active Problems/Subjective: - 11/28: admitted for inferior STEMI, RV failure requiring pressor - got lytics, aspirin and plavix load, heparin gtt, and eptifibatide. 3 MACARIO stents to RCA. [place] cath - low wedge & CVP so [...] a non-culprit artery. S/P DESx3 in the uoxgbhkr-ru-eveets RCA. Aspiration thrombectomy performed, and integrellin bolus [...] complications include novel onset, paroxysmal atrial fibrillation [OCK7VW2WCIN: 4] & L-sided diplopia with potential hemineglect [...] Anticoagulation/Arrhythmia # Novel Onset, Paroxsymal Atrial Fibrillation [ESQ9YI8KOEB: 4] - Obtain: TTE - Pending CVA [...] tamsulosin d/t low BP. # Nutrition - [facility] Diet -- Hematology/Oncology-- # Mild Thrombocytopenia, unclear [...] MD, PGY1 PGY3, Internal Medicine Cardiology S2, #[id number] I have seen the patient and reviewed [...] down the line. Gretchen Yoon MD Pager [phone] ?? Gretchen Yoon MD Pager [phone] Natalia Claros APRN - 12/01/2019 1:33 AM [...] per primary team For questions please call [employer] pager [phone] Natalia Claros APRN 12/01/2019 7:42 AM Clinical Documentation Improvement: Active Hospital Problems Diagnosis ??? Acute ST elevation myocardial infarction (STEMI) of inferior wall ??? Intracranial hemorrhage ??? Hyperlipidemia ??? Tobacco abuse ??? Claudication from peripheral vascular disease, left Resolved Hospital Problems No resolved problems to display. Tello Hsu, RELIEF MATE - 11/30/2019 8:44 PM EDT Respiratory Therapy [...] EDT Narrative:Visited in response to request for Manager Floral services. Pt was awake, alert, oriented and in bed. Assessment:Patient coping positively with stresses of illness/hospitalization at this time. Pt says that he is hoping to get better and pt is living with and has children and grandchildren. Pt haspurpose of life and has reason to get getter and to be with family. Outcome: Provided emotional and spiritual support and encouraging presence. Manager Floral services accepted.Conversation to build trusting relationship.Provided pastoral [...] complications include novel onset, paroxysmal atrial fibrillation [[id number]: 4] & L-sided diplopia with potential hemineglect for which CVA evaluationto be pursued. Active Problems/Subjective: - Overnight, CVP < 12 for which a total of 1 L IVF provided - Today AM, patient complains of subjectively reported, left-sided hemineglect with floaters and diplopia [see: exam]. - Otherwise, c/o neck pain 2/2 R IJ [place] & L radial A line. Otherwise, denies [...] a non-culprit artery. S/P DESx3 in the vrdquxaj-ae-pswutp RCA. Aspiration thrombectomy performed, and integrellin bolus [...] complications include novel onset, paroxysmal atrial fibrillation [[id number]: 4] & L-sided diplopia with potential hemineglect [...] Anticoagulation/Arrhythmia # Novel Onset, Paroxsymal Atrial Fibrillation [[id number]: 4] - Obtain: TTE to confirm rhythm [...] tamsulosin d/t low BP. # Nutrition - [facility] Diet -- Hematology/Oncology-- # Mild Thrombocytopenia, unclear [...] MD, PGY3 PGY3, Internal Medicine Cardiology S2, #[id number] I have seen the patient and reviewed [...] down the line. Gretchen Yoon MD Pager [phone] Paola Capps RN - 11/30/2019 6:57 AM EDT PT still requiring 4 of levo, several attempts to titrate down (maps in 70;s) But maps would drop toless than 65. Pt very restless in bed Raising and lowering head denies pain . Integrillin stopped [id number] when bottle complete , urine tea colored [...] PCP: France Lam MD PCP phone #: [phone] Scrap Baller: None ID/Chief Complaint: Chest pain History of Present Illness: 74 y.o male with no significant PMH, was in usual state of health until yesterday when he woke up at 4am this morning with severe crushing substernal chest pain 10/. He took two full strength aspirin and came to [facility] ED. At there was found [...] and Compazine. He was transferred directly to [facility] via [facility] for further management. Patient had an emergent PCI with 3 MACARIO stents placed to his RCA, with mild disease of LCX (report pending) at [facility]. He was found to be persistently hypotensive requiring Levo up to 10mcg/min. He was transferred to [facility] after the cath procedure. Bedside RHC showed CI 2.12, PAWP 11, PAP 38/15 indicating hypovolemic state. He received 1L bolus of NS with improvement of his blood pressure to 124/61. History of PAD, HLD - had side reactions to statins - so taking niacin and red rye grain. Chronic active smoker with more than 65 pack years. Family history of SC in father and two uncles. He's takingbaby [...] ??? Penicillins Pt doesn't remember reaction ??? Axdkmlp-Hte-Vev Reductase Inhibitors Stiff neck, upset stomach, back pain Family History: Mother: Father: SC 2 Uncles with MIs Social History: Tobacco: Current active smoker 1 ppd. 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 Vitals: Last value Range [...] in the last 7068 hours. Invalid input(s): [id number] Heme: No results for input(s): LDH, HAPTOGLOBIN, [...] OSH prior to transfer and PCI at [facility]. Massive inferior STEMI with troponin level 20, currently in CVCC due to pressor requirement. BedsideRHC demonstrated evidence of elevated right sided heart failure, but his wedge was wnl. He received 1L bolus with improvement of his blood pressure and reduction of his pressor requirement. PLAN: Admit to Cardiology, S2 Team Pager # [phone] #Inferior STEMI, LEYLA 149 - Resolving EKG [...] inferior STEMI s/p lytic therapy. Transferred to [facility] and underwent successful PCI of the RCA with MACARIO x3. Gretchen Yoon MD Pager [phone] documented in this encounter Procedure Notes Juventino [...] to the planned procedure. Hand Hygiene: The project management did perform hand hygiene prior to arterial [...] a suspected line-associated infection. Location of Procedure: [facility] Risks and Benefits: The risks [...] to the planned procedure. Hand Hygiene: The project management did perform hand hygiene prior to line [...] side:right An Introducer (PSI Kit) was used. Amlin. Insertion Side: right. Insertion Site: internal jugular. Catheter Details: Number of Lumens: 1 Catheter Type: heparin-coated The line was placed over a guidewire. Confirmation of Venous Placement: Venous placement was confirmed by transducing the pressure. Introducer Insertion Attempts: 1 Comments: Floating the [place] Catheter Attempts: 1 Comments: Sterile Dressing: Biopatch [...] better pt back in SR. Please page [phone] for any more cares or concerns Plan [...] gradual -- OUTCOME EVALUATION NOTE: OUTCOME SUMMARY: Ange lLuis is A&Ox4, afib on tele with rates [...] complications include novel onset, paroxysmal atrial fibrillation [[id number]: 5]& L-sided diplopia with potential hemineglect for [...] Total Evaluation Minutes, Occupational Therapy: 10 Pager: [phone] FRANCINE Nuñez Occupational Therapy Rehabilitation Department Plan [...] complications include novel onset, paroxysmal atrial fibrillation [[id number]: 5] & L-sided diplopia with potential hemineglect [...] hand rails). Baseline Mobility: Independent. Drives. 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 Time IN / OUT: 7531-6744 Total Evaluation Minutes, Physical Therapy: 15(gtx1) Barbara Baldwin, PT Pager: [phone] Physical Therapy Inpatient Rehabilitation Department Plan of [...] receives all he needs through the [facility]. Consult refused. Romain Tran, MSN, RN-, [facility] Tobacco Elevated Motorman [facility] Pager #[phone] Plan of Care - Romain Oglesby OT [...] complications include novel onset, paroxysmal atrial fibrillation [[id number]: 5] & L-sided diplopia with potential hemineglect [...] and measurable assessment of functional outcome. Pager: [phone] ROMAIN OGLESBY OT 12/03/2019 Occupational Therapy Rehabilitation Department Consult Note - Norma Gallegos RN - 12/03/2019 11:32 AM EDT Angel Luis Salnias was seen today by Cardiac Rehabilitation for: [...] in an outpatient cardiac rehabilitation program at [facility] was discussed. Patient agrees to a referral to this program. His has been a cardiac rehab patient at [facility] and he is familiar with the [...] complications include novel onset, paroxysmal atrial fibrillation [[id number]: 5] & L-sided diplopia with potential hemineglect [...] hand rails). Baseline Mobility: Independent. Drives. 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 Time IN / OUT: 8562-8708 Total Evaluation Minutes, Physical Therapy: 25(eval, gtx1) Barbara Baldwin, PT Pager: [phone] Physical Therapy Inpatient Rehabilitation Department Consult Note [...] Please contact JOHANNA NOBLES RN on pager [phone] or the wound care team at [phone] or pager [phone] skin and wound care concerns or questions. [...] Salinas would be surrogate decision maker per [place] surrogate decision making law. Any patient receiving carspousee at [facility] must abide by [place] law. The hierarchy for surrogate decisionmaking is: [...] Insurance: N/A Prescription Coverage: Yes Preferred Pharmacy: [place], [place] Other: No Primary Care Provider: France Lam MD [phone] Patient/Caregiver Goals of Treatment: Return home Potential Needs for Transition of Care: Rehab/SNF: Based on discussions with the multi-disciplinary healthcare team, the patient would benefit from SNF level of care at discharge. ?? I have met with the patient to discuss discharge planning needs. I have provided the [facility], Officeof Care Management letter from the Mri Ct Tech pertaining to rehab referrals. I have also provided a letter describing our affiliations within the [facility] and educated them about their right [...] patient have requested referrals to: ?? 1. [facility] [address] [place] [id number] ?? [address] [place] [address] Note routed to Wash Oil Cooler Operator who will communicate referrals to facilities [...] referrals are placed. Patient requests referral to [facility]. PHONE: [phone] FAX: [phone] Referral routed to the Wash Oil Cooler Operator for matching with agency/vendor and to [...] Insured w/ Medicare. Gets medications filled at [facility] in [place], [place]. Son to transport at discharge Plan: Discharge dispo depending on patient's physical recovery; SNF vs home w/ VNA. A member of the Care Management team will continue to monitor progress, follow for continuity of care and assist with transition of care planning. Derian Pascual, NIURKA Pager: [phone] Plan of Care - Estefani Baeza RN [...] ??? Penicillins Pt doesn't remember reaction ??? Xvbzuau-Oka-Zem Reductase Inhibitors Stiff neck, upset stomach, back [...] noncontrast head CT and CT [place] at 1600 hrs. We will [...] vision concerning for stroke. Patient presented to [facility] in transfer for a STEMI after presenting [...] ??? Penicillins Pt doesn't remember reaction ??? Cllnsyr-Yzx-Xlr Reductase Inhibitors Stiff neck, upset stomach, back [...] file Gets together: Not on file Attends yarsanism service: Not on file Active member of [...] Elbow flexion 5/5 R, 5/5 L Medical Coding Instructor LE: 5/5 R, 5/5 L Hip flexion [...] PGY3 Neurology Resident 11/30/2019 Vascular Neurology Pager [phone] Standard [facility] Swallow Screen: This screen is to be [...] diet as medical provider deems appropriate. Consider INTER COM SERVICER consult for full evaluation and diet recommendations. [...] Afib admitted s/p thrombolysis and Cath-Stent to [facility] who developed R sided visual [...] hours. Evan Mejia MD Department of Neurology [facility] Brief Op Note - Gretchen Yoon MD - 11/29/2019 8:38 PM EDT Brief Operative Note Patient Name: Angel Luis Salinas : [id number] MR#: [id number] Case Date: 11/29/2019 Surgeon: Surgeon(s) and Role: * Gretchen Yoon MD - Primary * Aidan Ward MD - Fellow Preoperative diagnosis: Inferior STEMI Postoperative diagnosis: Inferior STEMI Procedure(s) (LRB): CARDIAC CATHETERIZATION (N/A) Findings: Discrete 90% stenosis in the prox-to-mid RCA. Severe diffuse disease in the distal vessel. Discrete LCX stenosis in a non-culprit artery. S/P DESx3 in the wtqzdykz-uz-ihnvsb RCA. Aspiration thrombectomy performed, and integrellin bolus [...] are i n the results section. CT [place] [facility] STAT 11/30/2019 4:36 Res [...] Potassium 3.9 3.5 - 5.[address] [facility] mmol/L [facility] LAB[facility] Comment: Please note: ??Patients with WBC [...] Organization Address City/State/[place] [address] (ABNORMAL) Hemogram (12/08/2019 12:39 PM EDT) Analysis Performed At Patho logist Time Signature WBC 9.9 (H) 4.0 - 9.5 [facility] LABORATORY RBC 4.51 (L) 4.58 - [place] D[place] 5.54 [facility] x10(6)/[facility] LABORATORY Hemoglobin 13.0 (L) 13.7 - [place] 16.5 gm/dL [facility] Hematocrit 40.5 40.5 - [place] 48.5 % [facility] MCV 89.8 82.9 - [facility] DOV 93.1 [facility] LABORATORY MCH 28.8 27.5 - [place] 32.1 pg [facility] MCHC 32.1 32.0 - [place] 35.7 gm/dL [facility] Platelets 214 145 - [address] [facility] x10(3)/[facility] LABORATORY RDWSD 49.2 (H) 36.0 - [place] 45.0 [facility] LABORATORY RDWCV 15.1 (H) 11.4 - [place] 13.8 % [facility] LABOR[facility]ORY MPV 12.1 7.6 - 12.9 [facility] nRBC % Auto 0.0 % [facility] LABOR[facility]ORY nRBC Abs Auto 0.000 0.000 - [place] 0.000 [facility] x10(3)/[facility] LABORATORY Specimen Anatomical Collection Method Collection Time Receive d Time (Source) Location / / Volume Laterality Blood specimen 12/08/2019 12:39 0 (specimen) PM EDT 12:47 PM EDT Resulting Agency Comment Spec In Lab Gretchen Yoon MD HEMATOLOGY ORDERABLES Performing Organization Address City/State/ZIP Code Phon e Number [address] Hepatic Function Panel (12/08/2019 6:28 AM EDT) athologist Signature Total Protein 6.6 6.1 - 8.0 [facility] DOV gm/dL [facility] Albumin 3.2 3.2 - 5.2 [place] gm/dL [facility] AST 18 0 - 39 [place] unit/L [facility] ALT 13 0 - 55 [place] unit/L [facility] Alk Phos 64 40 - 130 [facility] DOV unit/L [facility] Total 0.4 0.2 - 1.3 [facility] Bilirubin mg/dL [facility] Bili, Direct 0.1 0.0 - 0.3 [facility] DOV mg/dL [facility] Specimen Anatomical Collection Method Collection Time Receive d Time (Source) Location / / Volume Laterality Blood specimen Venous Draw / 12/08/2019 6:28 AM 2019 6:36 (specimen) Unknown EDT AM EDT Resulting Agency Comment Spec In Lab Riki Stevens MD CHEMISTRY ORDERABLES Performing Organization Address City/[facility]/ZIP Code Phon e Number [address] (ABNORMAL) TSH (12/08/2019 6:28 AM EDT) athologist Signature TSH 5.27 (H) 0.27 - 4.20 [facility] DOV mcIU/mL [facility] LABOR[facility]ORY Specimen Anatomical Collection Method Collection Time Receive d Time (Source) Location / / Volume Laterality Blood specimen Venous Draw / 12/08/2019 6:28 AM 2019 6:36 (specimen) Unknown EDT AM EDT Resulting Agency Comment Spec In Lab Darrell Glasgow MD CHEMISTRY ORDERABLES Performing Organization Address City/[facility]/ZIP Code Phon e Number [address] Potassium (12/08/2019 6:28 AM EDT) P athologist Signature Potassium 4.2 3.5 - 5.[address] [facility] mmol/L [facility] Comment: Please note: ??Patients with WBC [...] Organization Address City/State/ZIP Code Phon e Number [place] [id number]OS[address] (ABNORMAL) Differential, Automated (12/08/2019 12:43 AM EDT) Patholo gist Method Time Signature Neutrophils % 60.7 % [facility] Neutr Abs (ANC) 6.81 (H) 1.70 - [facility] 6.10 [facility] x10(3)/[facility] LABORATORY Lymphocytes % 23.4 % [facility] Lymphocytes Abs 2.6 0.9 - 3.[address] [facility] x10(3)/[facility] LABORATORY Monocytes % 10.0 % [facility] Monocyte Abs 1.1 (H) 0.3 - 0.[address] [facility] x10(3)/[facility] LABORATORY Eosinophils % 3.7 % [facility]ORY Eosinophils Abs 0.4 0.0 - 0.[address] [facility] x10(3)/[facility] LABORATORY Basophils % 1.2 % [facility] Basophils Abs 0.1 0.0 - 0.[address] [facility] x10(3)/[facility] LABORATORY Immature Gran % 1.00 % [...] (H) 0.00 - 0.04 x10(3)/[facility] LABORATORY Specimen Anatomical Collection Method Collection Time Receive d Time (Source) Location / / Volume Laterality Blood specimen 12/08/2019 12:43 0 (specimen) AM EDT 12:52 AM EDT Resulting Agency Comment Spec In Lab Riki Stevens MD HEMATOLOGY ORDERABLES Performing Organization Address City/State/[place] [address] (ABNORMAL) Hemogram (12/08/2019 12:43 AM EDT) Analysis Performed At Patho logist Time Signature WBC 11.2 (H) 4.0 - 9.[address] [facility] x10(3)/[facility] LABORATORY RBC 4.46 (L) 4.58 - [facility] DOV 5.54 [facility] x10(6)/[facility] LABORATORY Hemoglobin 13.1 (L) 13.7 - [facility] 16.5 gm/dL [facility] Hematocrit 40.5 40.5 - [facility] DOV 48.5 % [facility] LABORATORY MCV 90.8 82.9 - [facility] 93.1 [facility] LABORATORY MCH 29.4 27.5 - [facility] DOV 32.1 pg [facility] LABORATORY MCHC 32.3 32.0 - [facility] DOV 35.7 gm/dL [facility] LABORATORY Platelets 215 145 - [address] [facility] x10(3)/[facility] LABORATORY RDWSD 49.8 (H) 36.0 - [facility] DOV 45.0 [facility] LABORATORY RDWCV 15.2 (H) 11.4 - [facility] DOV 13.8 % [facility] LABORATORY MPV 12.3 7.6 - 12.9 [facility] LABORATORY nRBC % Auto 0.0 % [facility] LABORATORY nRBC Abs Auto 0.000 0.000 - [facility] DOV 0.000 [facility] x10(3)/[facility] LABORATORY Specimen Anatomical Collection Method Collection Time Receive d Time (Source) Location / / Volume Laterality Blood specimen 12/08/2019 12:43 0 (specimen) AM EDT 12:52 AM EDT Resulting Agency Comment Spec In Lab Riki Stevens MD HEMATOLOGY ORDERABLES Performing Organization Address City/State/ZIP Code Phon e Number [address] Magnesium (12/08/2019 12:43 AM EDT) athologist Signature Magnesium 1.01 0.69 - 1.07 [facility]/L [facility] Specimen Anatomical Collection Method Collection Time Receive d Time (Source) Location / / Volume Laterality Blood specimen 12/08/2019 12:43 0 (specimen) AM EDT 12:52 AM EDT Resulting Agency Comment Spec In Lab Gretchen Yoon MD CHEMISTRY ORDERABLES Performing Organization Address City/State/[place] [address] (ABNORMAL) BMP w/fasting Glucose (12/08/2019 12:43 AM EDT) P athologist Signature Glucose 106 (H) 65 - 99 [facility] Fasting mg/dL [facility] Comment: ?Fasting* Glucose Interpretive C riteria [...] of Diabetes Mellitus, Position Statement from the [place] [employer]. ??Diabete s Care, Volume 33, Supplement 1, Jul 2009 BUN 14 10 - 20 mg/dL [facility] DOV [facility] LABORATORY Creatinine 1.16 0.80 - 1.50 mg/dL [facility] LABORATORY Sodium 134 (L) 135 - 145 mmol/L [facility] LABORATORY Potassium 4.0 3.5 - 5.0 mmol/L [facility] LABORATORY Comment: Please note: ??Patients with [...] LABORATORY Calcium 8.9 8.5 - 10.5 mg/dL [facility] LABORATORY Estimated GFR 62 >=60 mL/min/1.73 m?? [facility] Comment: The eGFR was calculated using the CKD-EP I equation. As with all creatinine based estimates of kidney function, eGFR values calculated with the CKD-EPI equation are not accurate in patients wi th acute kidney failure, extremes of body mass or the acutely ill. [email or web address]/[facility]nkf eGFR 72 >=60 mL/min/1.73 m?? [facility] Comment: The eGFR was calculated using the CKD-EP I equation. As with all creatinine based estimates of kidney function, eGFR values calculated with the CKD-EPI equation are not accurate in patients wi th acute kidney failure, extremes of body mass or the acutely ill. [email or web address]/[facility]IS[facility]f Specimen Anatomical Collection Method Collection Time Receive d Time (Source) Location / / Volume Laterality Blood specimen 12/08/2019 12:43 0 (specimen) AM EDT 12:52 AM EDT Resulting Agency Comment Spec In Lab Gretchen Yoon MD CHEMISTRY ORDERABLES Performing Organization Address City/State/ZIP Code Phon e Number [place] [phone]OS[address] LAB[address] Heparin (unfractionated) Level (12/08/2019 12:43 AM EDT) athologist Signature Heparin UFH 0.60 IU/mL [facility] LABORATORY Comment: Guidelines for therapeutic unfractionate d [...] Organization Address City/State/[place] [address] Potassium (12/07/2019 8:39 PM EDT) athologist Signature Potassium 4.1 3.5 - 5.[address] [facility] mmol/L [facility]ORY Comment: Please note: ??Patients with WBC [...] Organization Address City/State/ZIP Code Phon e Number [address] Potassium (12/07/2019 4:02 PM EDT) P athologist Signature Potassium 4.0 3.5 - 5.0 [facility] mmol/L [facility] Comment: Please note: ??Patients with WBC [...] Yoon MD CHEMISTRY ORDERABLES Performing Organization Address City/[facility]/[place] [address] (ABNORMAL) Hemogram (12/07/2019 4:02 PM EDT) Analysis Performed At Patho logist Time Signature WBC 17.4 (H) 4.0 - 9.5 [place] [facility] x10(3)/[facility] LABORATORY RBC 4.58 4.58 - [place] [facility] 5.54 [facility] x10(6)/[facility] LABORATORY Hemoglobin 13.5 (L) 13.7 - [place] [facility] 16.5 gm/dL [facility] LABORATORY Hematocrit 40.8 40.5 - [place] [facility] 48.5 % [facility] LABORATORY MCV 89.1 82.9 - [place] 93.1 [facility] LABORATORY MCH 29.5 27.5 - [place] 32.1 pg [facility] LABORATORY MCHC 33.1 32.0 - [place] [facility] 35.7 gm/dL [facility] LABORATORY Platelets 238 145 - 357 [place] [facility] x10(3)/[facility] LABORATORY RDWSD 48.8 (H) 36.0 - [place] 45.0 [facility] LABORATORY RDWCV 15.0 (H) 11.4 - [facility] D[facility] 13.8 % [facility] LABORATORY MPV 12.2 7.6 - 12.9 [place] [facility] LABORATORY nRBC % Auto 0.0 % [facility] nRBC Abs Auto 0.000 0.000 - [place] MONAE 0.000 [facility] x10(3)/[facility] LABORATORY Specimen Anatomical Collection Method Collection Time Receive d Time (Source) Location / / Volume Laterality Blood specimen 12/07/2019 4:02 PM 020 4:08 (specimen) EDT PM EDT Resulting Agency Comment Spec In Lab Gretchen Yoon MD HEMATOLOGY ORDERABLES Performing Organization Address City/[facility]/[place] [address] EKG 12 Lead (12/07/2019 [...] (Bezet) Calculated P -12 degrees MUSE SYSTEM [place] Calculated R 10 degrees [facility]USE [place] Calculated T -138 degrees MUSE SYSTEM [place] INTERPRETATION Supraventricular tachycardia MUSE SYSTEM Low voltage [...] athologist Signature Potassium 4.2 3.5 - 5.[address] [facility] mmol/L [facility] LABORATORY Comment: Please note: ??Patients with WBC [...] Lagos MD CHEMISTRY ORDERABLES Performing Organization Address [facility] [place] [address] Heparin (unfractionated) Level (12/07/2019 11:43 AM EDT) athologist Signature Heparin UFH 0.59 IU/mL [facility] LABORATORY Comment: Guidelines for therapeutic unfractionate d [...] Lagos MD HEMATOLOGY ORDERABLES Performing Organization Address [facility] [place] [address] Heparin (unfractionated) Level (12/07/2019 5:20 AM EDT) P athologist Signature Heparin UFH 0.53 IU/mL [facility] LABORATORY Comment: Guidelines for therapeutic unfractionate d [...] Organization Address City/State/[place] [address] (ABNORMAL) Differential, Automated (12/07/2019 5:20 AM EDT) Patholo gist Method Time Signature Neutrophils % 62.4 % [facility] Neutr Abs (ANC) 5.46 1.70 - [facility] 6.10 [facility] x10(3)/[facility] LABORATORY Lymphocytes % 20.3 % [facility] Lymphocytes Abs 1.8 0.9 - 3.[address] [facility] x10(3)/[facility] LABORATORY Monocytes % 11.0 % [facility] Monocyte Abs 1.0 (H) 0.3 - 0.[address] [facility] x10(3)/[facility] LABORATORY Eosinophils % 4.5 % [facility] Eosinophils Abs 0.4 0.0 - 0.[address] [facility] x10(3)/[facility] LABORATORY Basophils % 0.9 % [facility] Basophils Abs 0.1 0.0 - 0.[address] [facility] x10(3)/[facility] LABORATORY Immature Gran % 0.90 % ST [...] (H) 0.00 - 0.04 x10(3)/[facility] LABORATORY Specimen Anatomical Collection Method Collection Time Receive d Time (Source) Location / / Volume Laterality Blood specimen 12/07/2019 5:20 AM 020 5:37 (specimen) EDT AM EDT Resulting Agency Comment Spec In Lab Riki Stevens MD HEMATOLOGY ORDERABLES Performing Organization Address City/State/[place] [address] (ABNORMAL) Hemogram (12/07/2019 5:20 AM EDT) Analysis Performed At Patho logist Time Signature WBC 8.7 4.0 - 9.[address] [facility] x10(3)/[facility] LABORATORY RBC 4.20 (L) 4.58 - [facility] 5.54 [facility] x10(6)/[facility] LABORATORY Hemoglobin 12.3 (L) 13.7 - [facility] 16[facility] gm/dL [facility] Hematocrit 37.4 (L) 40.5 - [facility] 48.5 % [facility] MCV 89.0 82.9 - [facility] 93.1 fL [facility] LABORATORY MCH 29.3 27.5 - [facility] 32.1 pg [facility] LABORATORY MCHC 32.9 32.0 - [facility] MONAE 35.7 gm/dL [facility] LABORATORY Platelets 181 145 - 357 M[facility] MONAE x10(3)/[facility] LABORATORY RDWSD 47.7 (H) 36.0 - [facility] MONAE 45.0 [facility] LABORATORY RDWCV 14.8 (H) 11.4 - [facility] MONAE 13.8 % [facility] LABORATORY MPV 12.3 7.6 - 12.9 [facility] DOV [facility] LABORATORY nRBC % Auto 0.0 % [facility] nRBC Abs Auto 0.000 0.000 - [facility] MONAE 0.000 [facility] x10(3)/[facility] LABORATORY Specimen Anatomical Collection Method Collection Time Receive d Time (Source) Location / / Volume Laterality Blood specimen 12/07/2019 5:20 AM 020 5:37 (specimen) EDT AM EDT Resulting Agency Comment Spec In Lab Riki Stevens MD HEMATOLOGY ORDERABLES Performing Organization Address City/[facility]/ZIP Code Phon e Number [address] Magnesium (12/07/2019 5:20 AM EDT) P athologist Signature Magnesium 0.89 0.69 - 1.07 [facility]L [facility] Specimen Anatomical Collection Method Collection Time Receive d Time (Source) Location / / Volume Laterality Blood specimen 12/07/2019 5:20 AM 020 5:37 (specimen) EDT AM EDT Resulting Agency Comment Spec In Lab Gretchen Yoon MD CHEMISTRY ORDERABLES Performing Organization Address City/[facility]/ZIP Code Phon e Number [address] (ABNORMAL) BMP w/fasting Glucose (12/07/2019 5:20 AM EDT) P athologist Signature Glucose 100 (H) 65 - 99 [facility] Fasting mg/dL [facility] LABORATORY Comment: ?Fasting* Glucose Interpretive C riteria [...] of Diabetes Mellitus, Position Statement from the [employer]. ??Diabete s Care, Volume 33, Supplement 1, Jul 2009 BUN 14 10 - 20 mg/dL [facility] LABORATORY Creatinine 0.83 0.80 - 1.50 mg/dL [facility] LABORATORY Sodium 135 135 - 145 mmol/L [facility] LABORATORY Potassium 3.8 3.5 - 5.0 mmol/L [facility] LABORATORY Comment: Please note: ??Patients with [...] LABORATORY Calcium 8.8 8.5 - 10.5 mg/dL [facility] LABORATORY Estimated GFR 87 >=60 mL/min/1.73 m?? [facility] Comment: The eGFR was calculated using the CKD-EP I equation. As with all creatinine based estimates of kidney function, eGFR values calculated with the CKD-EPI equation are not accurate in patients wi th acute kidney failure, extremes of body mass or the acutely ill. http://[email or web address]/DHMCnkf eGFR 101 >=60 mL/min/1.73 m?? [facility] Comment: The eGFR was calculated using the CKD-EP I equation. As with all creatinine based estimates of kidney function, eGFR values calculated with the CKD-EPI equation are not accurate in patients wi th acute kidney failure, extremes of body mass or the acutely ill. [email or web address] Specimen Anatomical Collection Method Collection Time Receive d Time (Source) Location / / Volume Laterality Blood specimen 12/07/2019 5:20 AM 020 5:37 (specimen) EDT AM EDT Resulting Agency Comment Spec In Lab Gretchen Yoon MD CHEMISTRY ORDERABLES Performing Organization Address [facility] [place] [address] Heparin (unfractionated) Level (12/06/2019 10:14 PM EDT) athologist Signature Heparin UFH 0.29 IU/mL [facility] LABORATORY Comment: Guidelines for therapeutic unfractionate d [...] Lagos MD HEMATOLOGY ORDERABLES Performing Organization Address [facility] [place] [address] Head wo Contrast [...] For questions regarding this report, please contact [employer] number below. ? Narrative 12/06/2019 10:06 PM [...] Signature WBC 10.4 (H) 4.0 - 9.5 [facility] LABORATORY RBC 4.32 (L) 4.58 - [facility] DOV 5.54 [facility] x10(6)/[facility] LABORATORY Hemoglobin 12.5 (L) 13.7 - [facility] 16.[facility] gm/dL [facility] LABORATORY Hematocrit 38.4 (L) 40.5 - [facility] 48.5 % [facility] LABORATORY MCV 88.9 82.9 - [facility] 93.1 [facility] LABORATORY MCH 28.9 27.5 - [facility] 32.1 pg [facility] LABORATORY MCHC 32.6 32.0 - [facility] 35.7 gm/dL [facility] LABORATORY Platelets 194 145 - [address] [facility] x10(3)/[facility] LABORATORY RDWSD 46.9 (H) 36.0 - [facility] 45.0 [facility] LABORATORY RDWCV 14.6 (H) 11.4 - [facility] 13.8 % [facility] LABORATORY MPV 11.9 7.6 - 12.9 [facility] LABORATORY nRBC % Auto 0.0 % [facility] LABOR[facility] nRBC Abs Auto 0.000 0.000 - [facility] DOV 0.000 [facility] x10(3)/[facility] LABORATORY Specimen Anatomical Collection Method Collection Time Receive d Time (Source) Location / / Volume Laterality Blood specimen 12/06/2019 4:20 PM 020 4:31 (specimen) EDT PM EDT Resulting Agency Comment Spec In Lab Gretchen Yoon MD HEMATOLOGY ORDERABLES Performing Organization Address City/State/[place] [address] Heparin (unfractionated) Level (12/06/2019 4:20 PM EDT) P athologist Signature Heparin UFH 0.30 IU/mL [facility] LABORATORY Comment: Guidelines for therapeutic unfractionate d [...] Organization Address City/State/[place] [address] Heparin (unfractionated) Level (12/06/2019 10:02 AM EDT) athologist Signature Heparin UFH <0.04 IU/mL [facility] LABORATORY Comment: Guidelines for therapeutic unfractionate d [...] Lagos MD HEMATOLOGY ORDERABLES Performing Organization Address City/[facility]/ZIP Code Phon e Number [address] Magnesium (12/06/2019 3:36 AM EDT) P athologist Signature Magnesium 0.86 0.69 - 1.[address] [facility] mmol/L [facility] LABORATORY Specimen Anatomical Collection Method Collection Time Receive d Time (Source) Location / / Volume Laterality Blood specimen 12/06/2019 3:36 AM 020 3:45 (specimen) EDT AM EDT Resulting Agency Comment Spec In Lab Gretchen Yoon MD CHEMISTRY ORDERABLES Performing Organization Address City/[facility]/ZIP Code Phon e Number [address] (ABNORMAL) BMP w/fasting Glucose (12/06/2019 3:36 AM EDT) P athologist Signature Glucose 103 (H) 65 - [address] [facility] Fasting mg/dL [facility] LABORATORY Comment: ?Fasting* Glucose Interpretive C riteria [...] of Diabetes Mellitus, Position Statement from the [employer]. ??Diabete s Care, Volume 33, Supplement 1, Jul 2009 BUN 20 10 - 20 mg/dL [facility] LABORATORY Creatinine 0.88 0.80 - 1.50 mg/dL [facility] LABORATORY Sodium 136 135 - 145 mmol/L [facility] LABORATORY Potassium 4.0 3.5 - 5.0 mmol/L [facility] LABORATORY Comment: Please note: ??Patients with [...] LABORATORY Calcium 8.7 8.5 - 10.5 mg/dL [facility] LABORATORY Estimated GFR 85 >=60 mL/min/1.73 m?? [facility] Comment: The eGFR was calculated using the CKD-EP I equation. As with all creatinine based estimates of kidney function, eGFR values calculated with the CKD-EPI equation are not accurate in patients wi th acute kidney failure, extremes of body mass or the acutely ill. http://Guidekick/MCnkf eGFR 99 >=60 mL/min/1.73 m?? [facility] Comment: The eGFR was calculated using the CKD-EP I equation. As with all creatinine based estimates of kidney function, eGFR values calculated with the CKD-EPI equation are not accurate in patients wi th acute kidney failure, extremes of body mass or the acutely ill. http://[email or web address]/DHMCnkf Specimen Anatomical Collection Method Collection Time Receive d Time (Source) Location / / Volume Laterality Blood specimen 12/06/2019 3:36 AM 020 3:45 (specimen) EDT AM EDT Resulting Agency Comment Spec In Lab Gretchen Yoon MD CHEMISTRY ORDERABLES Performing Organization Address City/State/ZIP Code Phon e Number [address] (ABNORMAL) Hemogram (12/06/2019 3:36 AM EDT) Analysis Performed At Patho logist Time Signature WBC 9.2 4.0 - 9.5 [facility] LABORATORY RBC 3.99 (L) 4.58 - [place] DOV 5.54 [facility] x10(6)/[facility] LABORATORY Hemoglobin 11.9 (L) 13.7 - [facility] 16.[facility] gm/dL [facility] LABORATORY Hematocrit 35.5 (L) 40.5 - [facility] 48.5 % [facility] LABORATORY MCV 89.0 82.9 - [facility] 93[facility]1 [facility] LABORATORY MCH 29.8 27.5 - [place] DOV 32.1 pg [facility] LABORATORY MCHC 33.5 32.0 - [place] DOV 35.7 gm/dL [facility] LABORATORY Platelets 164 145 - [address] [facility] x10(3)/[facility] LABORATORY RDWSD 47.6 (H) 36.0 - [place] DOV 45.0 [facility] LABORATORY RDWCV 14.7 (H) 11.4 - [facility] 13.8 % [facility] LABORATORY MPV 11.9 7.6 - 12.9 [facility] LABORATORY nRBC % Auto 0.0 % [facility] LABORATORY nRBC Abs Auto 0.000 0.000 - [facility] DOV 0.000 [facility] x10(3)/[facility] LABORATORY Specimen Anatomical Collection Method Collection Time Receive d Time (Source) Location / / Volume Laterality Blood specimen 12/06/2019 3:36 AM 020 3:45 (specimen) EDT AM EDT Resulting Agency Comment Spec In Lab Gretchen Yoon MD HEMATOLOGY ORDERABLES Performing Organization Address City/[facility]/ZIP Code Phon e Number [address] (ABNORMAL) Differential, Automated (12/05/2019 10:52 PM EDT) Patholo gist Method Time Signature Neutrophils % 61.9 % [facility] LABOR[facility]ORY Neutr Abs (ANC) 6.02 1.70 - [facility] 6.10 [facility] x10(3)/[facility] LABORATORY Lymphocytes % 22.4 % [facility]ORATORY Lymphocytes Abs 2.2 0.9 - 3.[address] [facility] x10(3)/[facility] LABORATORY Monocytes % 10.4 % [facility] LABORATORY Monocyte Abs 1.0 (H) 0.3 - 0.[address] [facility] x10(3)/[facility] LABORATORY Eosinophils % 4.1 % [facility] LABORATORY Eosinophils Abs 0.4 0.0 - 0.[address] [facility] x10(3)/[facility] LABORATORY Basophils % 0.7 % [facility] LABORATORY Basophils Abs 0.1 0.0 - 0.[address] [facility] x10(3)/[facility] LABORATORY Immature Gran % 0.50 % ST [...] (H) 0.00 - 0.04 x10(3)/[facility] LABORATORY Specimen Anatomical Collection Method Collection Time Receive d Time (Source) Location / / Volume Laterality Blood specimen 12/05/2019 10:52 0 (specimen) PM EDT 10:59 PM EDT Resulting Agency Comment Spec In Lab Mandi Barrera MD HEMATOLOGY ORDERABLES Performing Organization Address City/State/[place] [address] (ABNORMAL) Hemogram (12/05/2019 10:52 PM EDT) Analysis Performed At [facility] logist Time Signature WBC 9.7 (H) 4.0 - 9.[address] [facility] x10(3)/[facility] LABORATORY RBC 4.07 (L) 4.58 - [facility] DOV 5.54 [facility] x10(6)/[facility] LABORATORY Hemoglobin 11.9 (L) 13.7 - [place] [place] 16.5 gm/dL [facility] LABORATORY Hematocrit 36.4 (L) 40.5 - [place] [place] 48.5 % [facility] LABORATORY MCV 89.4 82.9 - [facility] 93.1 [facility] LABORATORY MCH 29.2 27.5 - [place] DOV 32.1 pg [facility] LABORATORY MCHC 32.7 32.0 - [place] DOV 35.7 gm/dL [facility] LABORATORY Platelets 167 145 - [address] [facility] x10(3)/[facility] LABORATORY RDWSD 47.7 (H) 36.0 - [facility] 45.0 [facility] LABORATORY RDWCV 14.6 (H) 11.4 - [facility] 13.8 % [facility] LABORATORY MPV 12.1 7.6 - 12.9 [facility] LABORATORY nRBC % Auto 0.0 % [facility] LABORATORY nRBC Abs Auto 0.000 0.000 - [facility] 0.000 [facility] x10(3)/[facility] LABORATORY Specimen Anatomical Collection Method Collection Time Receive d Time (Source) Location / / Volume Laterality Blood specimen 12/05/2019 10:52 0 (specimen) PM EDT 10:59 PM EDT Resulting Agency Comment Spec In Lab Mandi Barrera MD HEMATOLOGY ORDERABLES Performing Organization Address City/State/[place] [address] Heparin (unfractionated) Level (12/05/2019 10:52 PM EDT) P athologist Signature Heparin UFH <0.04 IU/mL [facility] LABORATORY Comment: Guidelines for therapeutic unfractionate d [...] Organization Address City/State/[place] [address] MRI Brain wwo Contrast [...] Time Signature WBC 8.7 4.0 - 9.[address] [facility] x10(3)/[facility] LABORATORY RBC 4.17 (L) 4.58 - [facility] 5.54 [facility] x10(6)/[facility] LABORATORY Hemoglobin 12.4 (L) 13.7 - [facility] 16.[facility] gm/dL [facility] LABORATORY Hematocrit 37.0 (L) 40.5 - [facility] 48.5 % [facility] LABORATORY MCV 88.7 82.9 - [facility] 93.1 [facility] LABORATORY MCH 29.7 27.5 - [facility] 32.1 pg [facility] LABORATORY MCHC 33.5 32.0 - [facility] 35.7 gm/dL [facility] LABORATORY Platelets 173 145 - [address] [facility] x10(3)/[facility] LABORATORY RDWSD 47.3 (H) 36.0 - [facility] 45.0 [facility] LABORATORY RDWCV 14.6 (H) 11.4 - [facility] 13.8 % [facility] LABORATORY MPV 12.1 7.6 - 12.9 [facility] LABORATORY nRBC % Auto 0.0 % [facility]OR[facility]ORY nRBC Abs Auto 0.000 0.000 - [facility] 0.000 [facility] x10(3)/[facility] LABORATORY Specimen Anatomical Collection Method Collection Time Receive d Time (Source) Location / / Volume Laterality Blood specimen 12/05/2019 1:00 PM 020 1:13 (specimen) EDT PM EDT Resulting Agency Comment Spec In Lab Gretchen Yoon MD HEMATOLOGY ORDERABLES Performing Organization Address City/State/[place] [address] EKG 12 Lead (12/05/2019 10:52 AM EDT) Component Value Ref Range Test Analysis Performed Pathologis t Method Time At Signature Ventricular rate 72 BPM MUSE SYSTEM Atrial Rate 72 BPM MUSE SYSTEM P-R Interval 138 ms MUSE SYSTEM QRS Duration 96 ms MUSE SYSTEM Q-T Interval 396 ms MUSE SYSTEM QTC Calculated 433 ms MUSE SYSTEM ([place]zet) Calculated P [place] 65 degrees MUSE SYSTEM Calculated R [place] 13 degrees MUSE SYSTEM Calculated T [place] 0 degrees MUSE SYSTEM INTERPRETATION Sinus rhythm Occasional Premature ventricular complexe s MUSE SYSTEM Possible Inferior infarct (cited on or before 29-NOV-2019) Abnormal ECG When compared with ECG of 04-DEC-2019 10:43, Sinus rhythm has replaced Atrial fibrillation Vent. rate has decreased BY ??86 BPM Confirmed by MD Ceja Daniel ([id number]) on 12/05/2019 3:55:22 PM Specimen Anatomical Collection Method Collection Time Receive d Time (Source) Location / / Volume Laterality 12/05/2019 10:52 12/05/2019 3:55 AM EDT PM EDT Paris Lagos MD ECG ORDERABLES Performing Organization Address City/State/ZIP Code Phon e Number MUSE SYSTEM Duplex Study for DVT, Bilat legs (12/05/2019 7:00 AM EDT) Component Value Ref Test Analysis Performed At [facility] Range Method Time Signature VB Text Department: Vascular Surgery Lab VASCUBASE Report Patient: [id number] (ANGEL LUIS SALINAS) CPT: 77361 ICD10: I26.99 Referring Physician: GRETCHEN YOON ?? [...] athologist Signature Magnesium 0.87 0.69 - 1.[address] [facility] mmol/L [facility] LABORATORY Specimen Anatomical Collection Method Collection Time Receive d Time (Source) Location / / Volume Laterality Blood specimen 12/05/2019 4:18 AM 020 4:31 (specimen) EDT AM EDT Resulting Agency Comment Spec In Lab Gretchen Yoon MD CHEMISTRY ORDERABLES Performing Organization Address City/[facility]/ZIP [facility] [place] [address] (ABNORMAL) BMP w/fasting Glucose (12/05/2019 4:18 AM EDT) P athologist Signature Glucose 104 (H) 65 - [address] [facility] Fasting mg/dL [facility] LABORATORY Comment: ?Fasting* Glucose Interpretive C riteria [...] of Diabetes Mellitus, Position Statement from the [employer]. ??Diabete s Care, Volume 33, Supplement 1, Jul 2009 BUN 21 (H) 10 - 20 mg/dL [facility] LABORATORY Creatinine 1.02 0.80 - 1.50 mg/dL [facility] LABORATORY Sodium 136 135 - 145 mmol/L [facility] LABORATORY Potassium 3.9 3.5 - 5.0 mmol/L [facility] LABORATORY Comment: Please note: ??Patients with [...] LABORATORY Calcium 8.8 8.5 - 10.5 mg/dL [facility] LABORATORY Estimated GFR 73 >=60 mL/min/1.73 m?? [facility] Comment: The eGFR was calculated using the CKD-EP I equation. As with all creatinine based estimates of kidney function, eGFR values calculated with the CKD-EPI equation are not accurate in patients wi th acute kidney failure, extremes of body mass or the acutely ill. [email or web address]/[email or web address] HOLLISnkf eGFR 84 >=60 mL/min/1.73 m?? [facility] Comment: The eGFR was calculated using the CKD-EP I equation. As with all creatinine based estimates of kidney function, eGFR values calculated with the CKD-EPI equation are not accurate in patients wi th acute kidney failure, extremes of body mass or the acutely ill. [email or web address]/[facility] HOLLISnkf Specimen Anatomical Collection Method Collection Time Receive d Time (Source) Location / / Volume Laterality Blood specimen 12/05/2019 4:18 AM 020 4:31 (specimen) EDT AM EDT Resulting Agency Comment Spec In Lab Gretchen Yoon MD CHEMISTRY ORDERABLES Performing Organization Address City/State/[place] [address] (ABNORMAL) Hemogram (12/05/2019 4:18 AM EDT) Analysis Performed At Patho logist Time Signature WBC 8.6 4.0 - 9.[address] [facility] x10(3)/[facility] LABORATORY RBC 4.28 (L) 4.58 - [place] D[facility] 5.54 [facility] x10(6)/[facility] LABORATORY Hemoglobin 12.4 (L) 13.7 - [facility] 16.5 gm/dL [facility] LABORATORY Hematocrit 37.3 (L) 40.5 - [facility] 48.5 % [facility] MCV 87.1 82.9 - [facility] 93.1 [facility] LABORATORY MCH 29.0 27.5 - [facility] 32.1 pg [facility] MCHC 33.2 32.0 - [facility] 35.7 gm/dL [facility] Platelets 163 145 - [address] [facility] x10(3)/[facility] LABORATORY RDWSD 46.4 (H) 36.0 - [facility] 45.0 [facility] LABORATORY RDWCV 14.4 (H) 11.4 - [facility] 13.8 % [facility] MPV 11.7 7.6 - 12.9 [facility] LABORATORY nRBC % Auto 0.0 % [facility] nRBC Abs Auto 0.000 0.000 - [facility] 0.000 [facility] x10(3)/[facility] LABORATORY Specimen Anatomical Collection Method Collection Time Receive d Time (Source) Location / / Volume Laterality Blood specimen 12/05/2019 4:18 AM 020 4:31 (specimen) EDT AM EDT Resulting Agency Comment Spec In Lab Gretchen Yoon MD HEMATOLOGY ORDERABLES Performing Organization Address City/State/[place] [address] Cardiac for Morphology [...] For questions regarding this report, please contact [employer] number below. ? Narrative 12/04/2019 6:16 PM [...] from neck/greatest puja meter to back wall: HONDURAN 91, CAU 13: ??19 mm CORTES ??1, [...] from neck/greatest puja meter to back wall: HONDURAN 91, CAU 13: 19 mm CORTES 1, [...] WBC 8.9 4.0 - 9.5 [facility] DOV x10(3)/[facility] LABORATORY RBC 4.69 4.58 - [facility] DOV 5.54 [facility] x10(6)/[facility] LABORATORY Hemoglobin 13.5 (L) 13.7 - [facility] DOV 16.5 gm/dL [facility] Hematocrit 41.7 40.5 - [facility] DOV 48.5 % [facility] MCV 88.9 82.9 - [facility] DOV 93.1 fL [facility] MCH 28.8 27.5 - [facility] DOV 32.1 pg [facility] MCHC 32.4 32.0 - [facility] DOV 35.7 gm/dL [facility] Platelets 196 145 - 357 [facility] DOV x10(3)/[facility] LABORATORY RDWSD 46.7 (H) 36.0 - [facility] MONAE 45.0 [facility] LABORATORY RDWCV 14.5 (H) 11.4 - [facility] MONAE 13.8 % [facility] MPV 12.1 7.6 - 12.9 MELINA MONAE [facility] LABORATORY nRBC % Auto 0.0 % [facility] nRBC Abs Auto 0.000 0.000 - M[facility] MONAE 0.000 [facility] x10(3)/[facility] LABORATORY Specimen Anatomical Collection Method Collection Time Receive d Time (Source) Location / / Volume Laterality Blood specimen 12/04/2019 12:55 0 1:06 (specimen) PM EDT PM EDT Resulting Agency Comment Spec In Lab Gretchen Yoon MD HEMATOLOGY ORDERABLES Performing Organization Address City/[facility]/[place] [address] EKG 12 Lead (12/04/2019 10:43 AM EDT) Component Value Ref Range Test Analysis Performed Pathologis t Method Time At Signature Ventricular rate 158 BPM MUSE SYSTEM Atrial Rate 102 BPM MUSE SYSTEM QRS Duration 92 ms MUSE SYSTEM Q-T Interval 294 ms MUSE SYSTEM QTC Calculated 476 ms MUSE SYSTEM (Bezet) Calculated R [place] 17 degrees MUSE SYSTEM Calculated T [place] 90 degrees MUSE SYSTEM INTERPRETATION Atrial fibrillation with rapid ventricular response MUSE SYSTEM Possible Inferior infarct (cited on or before 29-NOV-2019) Abnormal ECG When compared with ECG of 30-NOV-2019 21:07, Atrial fibrillation has replaced Sinus rhythm Vent. rate has increased BY ??65 BPM Confirmed by MD Brenna, Faustino ([id number]) on 12/05/2019 8:59:44 AM Specimen Anatomical Collection Method Collection Time Receive d Time (Source) Location / / Volume Laterality 12/04/2019 10:43 12/05/2019 8:59 AM EDT AM EDT Gretchen Yoon MD ECG ORDERABLES Performing Organization Address City/State/ZIP Code Phon e Number MUSE SYSTEM (ABNORMAL) Magnesium (12/04/2019 4:28 AM EDT) P athologist Signature Magnesium 1.17 (H) 0.69 - 1.[address] [facility] mmol/L [facility] Specimen Anatomical Collection Method Collection Time Receive d Time (Source) Location / / Volume Laterality Blood specimen 12/04/2019 4:28 AM 020 4:40 (specimen) EDT AM EDT Resulting Agency Comment Spec In Lab Gretchen Yoon MD CHEMISTRY ORDERABLES Performing Organization Address City/State/[place] [address] (ABNORMAL) BMP w/fasting Glucose (12/04/2019 4:28 AM EDT) athologist Signature Glucose 108 (H) 65 - [address] [facility] Fasting mg/dL [facility] Comment: ?Fasting* Glucose Interpretive C riteria [...] of Diabetes Mellitus, Position Statement from the [employer]. ??Diabete s Care, Volume 33, Supplement 1, Jul 2009 BUN 19 10 - 20 mg/dL [facility] LAB[facility]ORY Creatinine 0.89 0.80 - 1.50 mg/dL [facility] Sodium 135 135 - 145 mmol/L [facility] LABOR[facility]ORY Potassium 4.2 3.5 - 5.0 mmol/L [facility] LAB[facility]ORY Comment: Please note: ??Patients with [...] LABORATORY Calcium 8.5 8.5 - 10.5 mg/dL [facility] LAB[facility] Estimated GFR 85 >=60 mL/min/1.73 m?? [facility] Comment: The eGFR was calculated using the CKD-EP I equation. As with all creatinine based estimates of kidney function, eGFR values calculated with the CKD-EPI equation are not accurate in patients wi th acute kidney failure, extremes of body mass or the acutely ill. [email or web address]/[facility]ISnkf eGFR 98 >=60 mL/min/1.73 m?? [facility] Comment: The eGFR was calculated using the CKD-EP I equation. As with all creatinine based estimates of kidney function, eGFR values calculated with the CKD-EPI equation are not accurate in patients wi th acute kidney failure, extremes of body mass or the acutely ill. http://[email or web address]/[facility]LLISnkf Specimen Anatomical Collection Method Collection Time Receive d Time (Source) Location / / Volume Laterality Blood specimen 12/04/2019 4:28 AM 020 4:40 (specimen) EDT AM EDT Resulting Agency Comment Spec In Lab Gretchen Yoon MD CHEMISTRY ORDERABLES Performing Organization Address City/State/[place] [address] (ABNORMAL) Hemogram (12/04/2019 4:28 AM EDT) Analysis Performed At Patho logist Time Signature WBC 7.8 4.0 - 9.[address] [facility] x10(3)/[facility] LABORATORY RBC 4.10 (L) 4.58 - [facility] 5.54 [facility] x10(6)/[facility] LABORATORY Hemoglobin 12.0 (L) 13.7 - [facility] 16.5 gm/dL [facility] Hematocrit 36.5 (L) 40.5 - [facility] 48.5 % [facility] MCV 89.0 82.9 - [facility] 93.1 fL [facility] MCH 29.3 27.5 - [facility] MONAE 32.1 pg [facility] MCHC 32.9 32.0 - [facility] MONAE 35.7 gm/dL [facility] Platelets 151 145 - 357 [facility] VILLANUEVACK x10(3)/[facility] LABORATORY RDWSD 46.9 (H) 36.0 - M[facility] MONAE 45.0 [facility] LABORATORY RDWCV 14.4 (H) 11.4 - M[facility] MONAE 13.8 % [facility] MPV 12.2 7.6 - 12.9 M[facility] MONAE fL [facility] LAB[facility] nRBC % Auto 0.0 % [facility] nRBC Abs Auto 0.000 0.000 - M[facility]INA MONAE 0.000 [facility] x10(3)/[facility] LABORATORY Specimen Anatomical Collection Method Collection Time Receive d Time (Source) Location / / Volume Laterality Blood specimen 12/04/2019 4:28 AM 020 4:40 (specimen) EDT AM EDT Resulting Agency Comment Spec In Lab Gretchen Yoon MD HEMATOLOGY ORDERABLES Performing Organization Address City/[facility]/ZIP Code Phon e Number [address] Potassium (12/03/2019 7:55 PM EDT) athologist Signature Potassium 3.9 3.5 - 5.0 [facility]L [facility] Comment: Please note: ??Patients with WBC [...] Yoon MD CHEMISTRY ORDERABLES Performing Organization Address City/[facility]/ZIP [facility] Phon e Number [address] Potassium (12/03/2019 1:57 PM EDT) athologist Signature Potassium 3.7 3.5 - 5.0 [facility] mmol/L [facility] Comment: Please note: ??Patients with WBC [...] Organization Address City/State/[place] [address] (ABNORMAL) Hemogram (12/03/2019 1:57 PM EDT) Analysis Performed At Patho logist Time Signature WBC 8.8 4.0 - 9.5 [facility] DOV x10(3)/[facility] LABORATORY RBC 4.27 (L) 4.58 - [facility] DOV 5.54 [facility] x10(6)/[facility] LABORATORY Hemoglobin 12.5 (L) 13.7 - [facility] DOV 16.5 gm/dL [facility]ORY Hematocrit 37.5 (L) 40.5 - [facility] DOV 48.5 % [facility] LABORATORY MCV 87.8 82.9 - [facility] DOV 93.1 [facility] LABORATORY MCH 29.3 27.5 - [facility] DOV 32.1 pg [facility] LABORATORY MCHC 33.3 32.0 - [facility] DOV 35.7 gm/dL [facility] LAB[facility]ORY Platelets 158 145 - 357 [facility] DOV x10(3)/[facility] LABORATORY RDWSD 46.9 (H) 36.0 - [facility] DOV 45.0 [facility] LABORATORY RDWCV 14.5 (H) 11.4 - [facility] DOV 13.8 % [facility] LABORATORY MPV 12.2 7.6 - 12.9 [facility] DOV [facility] LABORATORY nRBC % Auto 0.0 % [facility] LAB[facility] nRBC Abs Auto 0.000 0.000 - [employer] 0.000 [facility] x10(3[facility] LABORATORY Specimen Anatomical Collection Method Collection Time Receive d Time (Source) Location / / Volume Laterality Blood specimen 12/03/2019 1:57 PM 020 2:21 (specimen) EDT PM EDT Resulting Agency Comment Spec In Lab Gretchen Yoon MD HEMATOLOGY ORDERABLES Performing Organization Address City/State/ZIP Code Phon e Number [address] Magnesium (12/03/2019 4:02 AM EDT) P athologist Signature Magnesium 0.79 0.69 - 1.[address] [facility] mmol/L [facility]ORY Specimen Anatomical Collection Method Collection Time Receive d Time (Source) Location / / Volume Laterality Blood specimen 12/03/2019 4:02 AM 020 4:16 (specimen) EDT AM EDT Resulting Agency Comment Spec In Lab Gretchen Yoon MD CHEMISTRY ORDERABLES Performing Organization Address City/State/[place] [address] (ABNORMAL) BMP w/fasting Glucose (12/03/2019 4:02 AM EDT) P athologist Signature Glucose 100 (H) 65 - [address] [facility] Fasting mg/dL [facility] Comment: ?Fasting* Glucose Interpretive C riteria [...] of Diabetes Mellitus, Position Statement from the [employer]. ??Diabete s Care, Volume 33, Supplement 1, Jul 2009 BUN 17 10 - 20 mg/dL [facility] LABORATORY Creatinine 0.95 0.80 - 1.50 mg/dL [facility] LABORATORY Sodium 136 135 - 145 mmol/L [facility] Potassium 3.4 (L) 3.5 - 5.0 mmol/L [facility] Comment: Please note: ??Patients with [...] Calcium 8.3 (L) 8.5 - 10.5 mg/dL [facility] LAB[facility]ORY Estimated GFR 79 >=60 mL/min/1.73 m?? [facility] Comment: The eGFR was calculated using the CKD-EP I equation. As with all creatinine based estimates of kidney function, eGFR values calculated with the CKD-EPI equation are not accurate in patients wi th acute kidney failure, extremes of body mass or the acutely ill. http://[email or web address]/[facility]LLISnkf eGFR 92 >=60 mL/min/1.73 m?? [facility] Comment: The eGFR was calculated using the CKD-EP I equation. As with all creatinine based estimates of kidney function, eGFR values calculated with the CKD-EPI equation are not accurate in patients wi th acute kidney failure, extremes of body mass or the acutely ill. [email or web address] Specimen Anatomical Collection Method Collection Time Receive d Time (Source) Location / / Volume Laterality Blood specimen 12/03/2019 4:02 AM 020 4:16 (specimen) EDT AM EDT Resulting Agency Comment Spec In Lab Gretchen Yoon MD CHEMISTRY ORDERABLES Performing Organization Address City/State/[place] [address] (ABNORMAL) Hemogram (12/03/2019 4:02 AM EDT) Analysis Performed At Patho logist Time Signature WBC 9.1 4.0 - 9.[address] [facility] x10(3)/[facility] LABORATORY RBC 4.01 (L) 4.58 - MELINA MARSHDOV 5.54 [facility] x10(6)/[facility] LABORATORY Hemoglobin 11.8 (L) 13.7 - [facility] 16.5 gm/dL [facility] Hematocrit 35.6 (L) 40.5 - [facility] 48.5 % [facility] MCV 88.8 82.9 - [facility] 93.1 [facility] LABORATORY MCH 29.4 27.5 - [facility] 32.1 pg [facility] MCHC 33.1 32.0 - [facility] 35.7 gm/dL [facility] Platelets 130 (L) 145 - [address] [facility] x10(3)/[facility] LABORATORY RDWSD 46.6 (H) 36.0 - [facility] 45.0 [facility] LABORATORY RDWCV 14.4 (H) 11.4 - [facility] 13.8 % [facility] LABORATORY MPV 12.4 7.6 - 12.9 [facility] LABORATORY nRBC % Auto 0.0 % [facility] nRBC Abs Auto 0.000 0.000 - [facility] 0.000 [facility] x10(3)/[facility] LABORATORY Specimen Anatomical Collection Method Collection Time Receive d Time (Source) Location / / Volume Laterality Blood specimen 12/03/2019 4:02 AM 020 4:16 (specimen) EDT AM EDT Resulting Agency Comment Spec In Lab Gretchen Yoon MD HEMATOLOGY ORDERABLES Performing Organization Address City/State/[place] [address] XR Chest One View [...] Signature WBC 10.6 (H) 4.0 - 9.5 [facility] LABORATORY RBC 4.00 (L) 4.58 - [facility] DOV 5.54 [facility] x10(6)/[facility] LABORATORY Hemoglobin 11.9 (L) 13.7 - [facility] 16.5 gm/dL [facility] Hematocrit 35.7 (L) 40.5 - [facility] 48.5 % [facility] MCV 89.3 82.9 - [facility] 93.1 [facility] LABORATORY MCH 29.8 27.5 - [facility] 32.1 pg [facility]ORY MCHC 33.3 32.0 - [facility] 35.7 gm/dL [facility]ORY Platelets 120 (L) 145 - [address] [facility] x10(3)/[facility] LABORATORY RDWSD 47.5 (H) 36.0 - [facility] 45.0 [facility] LABORATORY RDWCV 14.6 (H) 11.4 - [facility] 13.8 % [facility] LABORATORY MPV 12.0 7.6 - 12.9 [facility] LABORATORY nRBC % Auto 0.0 % [facility] nRBC Abs Auto 0.000 0.000 - [facility] 0.000 [facility] x10(3)/[facility] LABORATORY Specimen Anatomical Collection Method Collection Time Receive d Time (Source) Location / / Volume Laterality Blood specimen 12/02/2019 12:50 0 1:22 (specimen) PM EDT PM EDT Resulting Agency Comment Spec In Lab Gretchen Yoon MD HEMATOLOGY ORDERABLES Performing Organization Address City/State/[place] [address] Blue Tube HOLD (12/02/2019 4:55 AM EDT) P athologist Signature Blue Hold Sample in [facility] lab. [facility] LABORATORY Specimen Anatomical Collection Method Collection Time Receive d Time (Source) Location / / Volume Laterality Blood specimen Venous Draw / 12/02/2019 4:55 AM 2019 5:03 (specimen) Unknown EDT AM EDT Darrell Glasgow MD HEMATOLOGY ORDERABLES Performing Organization Address City/State/ZIP Code Phon e Number [address] Magnesium (12/02/2019 4:55 AM EDT) athologist Signature Magnesium 0.85 0.69 - 1.[address] [facility] mmol/L [facility] LABORATORY Specimen Anatomical Collection Method Collection Time Receive d Time (Source) Location / / Volume Laterality Blood specimen 12/02/2019 4:55 AM 020 5:02 (specimen) EDT AM EDT Resulting Agency Comment Spec In Lab Gretchen Yoon MD CHEMISTRY ORDERABLES Performing Organization Address City/State/[place] [address] (ABNORMAL) BMP w/fasting Glucose (12/02/2019 4:55 AM EDT) athologist Signature Glucose 114 (H) 65 - [address] [facility] Fasting mg/dL [facility]ORY Comment: ?Fasting* Glucose Interpretive C riteria [...] of Diabetes Mellitus, Position Statement from the [employer]. ??Diabete s Care, Volume 33, Supplement 1, Jul 2009 BUN 13 10 - 20 mg/dL [facility] LABORATORY Creatinine 0.93 0.80 - 1.50 mg/dL [facility] LABORATORY Sodium 135 135 - 145 mmol/L [facility] LAB[facility]ORY Potassium 3.7 3.5 - 5.0 mmol/L [facility] LABOR[facility]ORY Comment: Please note: ??Patients with [...] Calcium 8.1 (L) 8.5 - 10.5 mg/dL [facility] LABOR[facility]ORY Estimated GFR 81 >=60 mL/min/1.73 m?? [facility] Comment: The eGFR was calculated using the CKD-EP I equation. As with all creatinine based estimates of kidney function, eGFR values calculated with the CKD-EPI equation are not accurate in patients wi th acute kidney failure, extremes of body mass or the acutely ill. http://[email or web address]/[facility]ISnkf eGFR 94 >=60 mL/min/1.73 m?? [facility] Comment: The eGFR was calculated using the CKD-EP I equation. As with all creatinine based estimates of kidney function, eGFR values calculated with the CKD-EPI equation are not accurate in patients wi th acute kidney failure, extremes of body mass or the acutely ill. [email or web address] Specimen Anatomical Collection Method Collection Time Receive d Time (Source) Location / / Volume Laterality Blood specimen 12/02/2019 4:55 AM 020 5:02 (specimen) EDT AM EDT Resulting Agency Comment Spec In Lab Gretchen Yoon MD CHEMISTRY ORDERABLES Performing Organization Address City/State/[place] [address] (ABNORMAL) Hemogram (12/02/2019 4:55 AM EDT) Analysis Performed At Patho logist Time Signature WBC 9.3 4.0 - 9.5 [facility] LABORATORY RBC 3.71 (L) 4.58 - [facility] DOV 5.54 [facility] x10(6)/[facility] LABORATORY Hemoglobin 10.8 (L) 13.7 - [facility] gm/dL [facility]ATORY Hematocrit 33.1 (L) 40.5 - [facility] 48.5 % [facility] LABORATORY MCV 89.2 82.9 - [facility] 93.1 [facility] LABORATORY MCH 29.1 27.5 - [facility] 32.1 pg [facility] LABORATORY MCHC 32.6 32.0 - [facility] 35.7 gm/dL [facility] LABORATORY Platelets 93 (L) 145 - [address] [facility] x10(3)/[facility] LABORATORY RDWSD 47.1 (H) 36.0 - [facility] 45.0 [facility] LABORATORY RDWCV 14.6 (H) 11.4 - [facility] 13.8 % [facility] LABORATORY MPV 11.7 7.6 - 12.9 [facility] LABORATORY nRBC % Auto 0.0 % [facility] nRBC Abs Auto 0.000 0.000 - [facility] 0.000 [facility] x10(3)/[facility] LABORATORY Specimen Anatomical Collection Method Collection Time Receive d Time (Source) Location / / Volume Laterality Blood specimen 12/02/2019 4:55 AM 020 5:02 (specimen) EDT AM EDT Resulting Agency Comment Spec In Lab Gretchen Yoon MD HEMATOLOGY ORDERABLES Performing Organization Address City/State/[place] [address] Transfuse 1 unit platelets, [...] For questions regarding this report, please contact [employer] number below. ? Electronically signed by: Angel Luis Barboza MD, [facility] ([phone]), at 12/01/2019 8:02 PM Narrative 12/01/2019 8:02 [...] For questions regarding this report, please contact [employer] number below. Electronically signed by: Angel Luis Barboza MD, [facility] ([phone]), at 12/01/2019 8:02 PM Gretchen Yoon MD IMG MRI ORDERABLES Prepare Platelets, Apheresis (12/01/2019 6:20 PM EDT) P athologist Signature Dispensed? Yes [facility] Specimen Anatomical Collection Method Collection Time Receive d Time (Source) Location / / Volume Laterality Blood specimen 12/01/2019 6:20 PM 020 6:18 (specimen) EDT PM EDT Gretchen Yoon MD BLOOD BANK ORDERABLES Performing Organization Address City/[facility]/[place] [address] Duplex for DVT, Arm, Unilat (12/01/2019 5:08 PM EDT) Component Value Ref Test Analysis Performed At Patholo gist Range Method Time Signature VB Text Department: Vascular Surgery Lab VASCUBASE Report Patient: [id number] (ANGEL LUIS SALINAS) CPT: 22936 ICD10: R60.0 Referring Physician: GRETCHEN YOON ?? [...] For questions regarding this report, please contact [employer] number below. ? Narrative 12/01/2019 3:53 PM EDT EXAMINATION: CT HEAD WO CONTRAST (GENERIC) CLINICAL HISTORY: Headache, intracranial hemorrhage suspected Serial CT scan: please assess for propag ation of known ICH noted on prior Head CT/imaging. TECHNIQUE: CT head performed without intravenous co ntrast administration. COMPARISON: Head CT 11/30/2019. CT [facility] [place] [facility] [place] 11/01. FINDINGS: Ventricles are normal in size. Basal cis terns are patent. Unchanged hyperdense 2.3 x 0.7 x 0.6 cm tubular hemorrhage projecting along the course of the left optic tract (axial se [facility] 2 image 16), consistent with [...] Head CT 11/30/2019. CT [facility]ogram [facility] [place] [facility] [place] 11/01. FINDINGS: Ventricles are normal [...] Scan, Peripheral Blood (12/01/2019 12:51 PM EDT) [facility] Method Time Signature Plat Estimate Decreased [facility] RBC Morphology Normal [facility] Less than 1 /HPF [facility] Platelets [facility] LABORATORY Specimen Anatomical Collection Method Collection Time Receive d Time (Source) Location / / Volume Laterality Blood specimen 12/01/2019 12:51 0 1:05 (specimen) PM EDT PM EDT Resulting Agency Comment Spec In Lab Riki Stevens MD HEMATOLOGY ORDERABLES Performing Organization Address City/State/[place] [address] (ABNORMAL) Differential, Automated (12/01/2019 12:51 PM EDT) [facility] Method Time Signature Neutrophils % 74.9 % [facility] Neutr Abs (ANC) 6.34 (H) 1.70 - [facility] 6.10 [facility] x10(3)/[facility] LABORATORY Lymphocytes % 11.4 % [facility] Lymphocytes Abs 1.0 0.9 - 3.[address] [facility] x10(3)/[facility] LABORATORY Monocytes % 12.4 % [facility] Monocyte Abs 1.0 (H) 0.3 - 0.[address] [facility] x10(3)/[facility] LABORATORY Eosinophils % 0.4 % [facility] Eosinophils Abs 0.0 0.0 - 0.[address] [facility] x10(3)/[facility] LABORATORY Basophils % 0.4 % [facility] Basophils Abs 0.0 0.0 - 0.[address] [facility] x10(3)/[facility] LABORATORY Immature Gran % 0.50 % [...] Gran Abs 0.04 0.00 - 0.04 x10(3)/[facility] LABORATORY Specimen Anatomical Collection Method Collection Time Receive d Time (Source) Location / / Volume Laterality Blood specimen 12/01/2019 12:51 0 1:05 (specimen) PM EDT PM EDT Resulting Agency Comment Spec In Lab Riki Stevens MD HEMATOLOGY ORDERABLES Performing Organization Address City/State/ZIP Code Phon e Number [place] [phone] (ABNORMAL) Hemogram (12/01/2019 12:51 PM EDT) Analysis Performed At Patho logist Time Signature WBC 8.4 4.0 - 9.5 [facility] LABORATORY RBC 3.69 (L) 4.58 - [facility] 5.54 [facility] x10(6)/[facility] LABORATORY Hemoglobin 10.8 (L) 13.7 - [facility] 16.5 gm/dL [facility] LABORATORY Hematocrit 32.4 (L) 40.5 - [facility] 48.5 % [facility] LABORATORY MCV 87.8 82.9 - [facility] 93.1 [facility] LABORATORY MCH 29.3 27.5 - M[place] DOV 32.1 pg [facility] LABORATORY MCHC 33.3 32.0 - [facility] DOV 35.7 gm/dL [facility] LABORATORY Platelets 72 (L) 145 - 357 [facility](3[facility] LABORATORY RDWSD 47.2 (H) 36.0 - [facility] 45.0 [facility] LABORATORY RDWCV 14.6 (H) 11.4 - [facility] DOV 13.8 % [facility] LABORATORY MPV 12.2 7.6 - 12.9 [facility] LABORATORY nRBC % Auto 0.0 % [facility] nRBC Abs Auto 0.000 0.000 - [facility] 0.000 [facility] x10(3)/[facility] LABORATORY Specimen Anatomical Collection Method Collection Time Receive d Time (Source) Location / / Volume Laterality Blood specimen 12/01/2019 12:51 0 1:05 (specimen) PM EDT PM EDT Resulting Agency Comment Spec In Lab Riki Stevens MD HEMATOLOGY ORDERABLES Performing Organization Address City/State/ZIP Code Phon e Number [address] (ABNORMAL) Coox2 (12/01/2019 11:42 AM EDT) Analysis Performed At Patho logist Time Signature pO2 Coox [address] [facility] Hgb Blood Gas 11.6 (L) 13.7 - [facility] 16.5 gm/dL [facility] LABORATORY O2HB Coox 60.8 % [facility] COHB Coox 0.6 % [facility] Comment: Nonsmokers: 0.5-1.5% COHB Smokers: Variable, but usually less than 10% Toxic: 20-30% COHB Lethal: Greater than 60% COHB METHB Coox 0.6 <=1.5 % [facility] LABORATORY Source Coox Mixed Venous [facility] Specimen Anatomical Collection Method Collection Time Receive d Time (Source) Location / / Volume Laterality Blood specimen 12/01/2019 11:42 0 (specimen) AM EDT 11:42 AM EDT Gretchen Yoon MD CHEMISTRY ORDERABLES Performing Organization Address City/State/[place] [address] Sedimentation rate (12/01/2019 3:55 AM EDT) P athologist Signature Sed Rate 25 3 - [address] [facility] mm/hr [facility] LABORATORY Comment: Effective June 11, 2019 new [...] Winn MD HEMATOLOGY ORDERABLES Performing Organization Address City/[facility]/[place] [address] (ABNORMAL) CRP, acute inflammation [...] Winn MD CHEMISTRY ORDERABLES Performing Organization Address City/[facility]/ZIP Code Phon e Number [address] ABORH Recheck Status (12/01/2019 3:55 AM EDT) [facility] Method Time Signature ABORH Recheck Order Placed [facility] LABORATORY ABORH Type Complete [facility] LABORATORY Specimen Anatomical Collection Method Collection Time Receive d Time (Source) Location / / Volume Laterality Blood specimen 12/01/2019 3:55 AM 020 4:15 (specimen) EDT AM EDT Resulting Agency Comment Spec In Lab Lewis Gee MD BLOOD BANK ORDERABLES Performing Organization Address City/[facility]/[place] [address] Antibody screen (12/01/2019 3:55 AM EDT) Patholo gist Method Time Signature Ab Screen Negative [facility] LABORATORY Expires at 12/04/[address] [facility] [id number] on: [facility] LABORATORY Specimen Anatomical Collection Method Collection Time Receive d Time (Source) Location / / Volume Laterality Blood specimen 12/01/2019 3:55 AM 020 4:15 (specimen) EDT AM EDT Resulting Agency Comment Spec In Lab Lewis Gee MD BLOOD BANK ORDERABLES Performing Organization Address City/State/[place] [address] ABO/Rh Typing (12/01/2019 3:55 AM EDT) athologist Signature ABORh Type AB Pos [facility] Specimen Anatomical Collection Method Collection Time Receive d Time (Source) Location / / Volume Laterality Blood specimen 12/01/2019 3:55 AM 020 4:15 (specimen) EDT AM EDT Resulting Agency Comment Spec In Lab Lewis Gee MD BLOOD BANK ORDERABLES Performing Organization Address City/[facility] [place] [address] (ABNORMAL) Troponin (12/01/2019 3:55 AM EDT) athologist Signature Troponin-T 4.35 (H) 0.00 - [facility] 0.00 ng/mL [facility] LABORATORY Comment: result rechecked-slw The 99th percentile for Troponin T is le ss than 0.01 ng/mL, any detectable cTnT concentration using this assay should be considered elevated. According to the third universal definit ion of myocardial infarction the following criteria with a clinical prese ntation consistent with acute myocardial ischemia meets the diagnosis for a myocardial infarction (SC). Detection of a rise and/or fall of [...] additional sample may be indicated. Reference: Third Vallejo Definition of Myocardial Infarction. Journal of the [employer] College [employer] 2012;60:1581-98 Specimen Anatomical Collection Method Collection Time Receive d Time (Source) Location / / Volume Laterality Blood specimen 12/01/2019 3:55 AM 020 4:00 (specimen) EDT AM EDT Resulting Agency Comment Spec In Lab Gretchen Yoon MD CHEMISTRY ORDERABLES Performing Organization Address City/State/ZIP Code Phon e Number [address] Magnesium (12/01/2019 3:55 AM EDT) P athologist Signature Magnesium 0.96 0.69 - 1.[address] [facility] mmol/L [facility] LABORATORY Specimen Anatomical Collection Method Collection Time Receive d Time (Source) Location / / Volume Laterality Blood specimen 12/01/2019 3:55 AM 020 4:00 (specimen) EDT AM EDT Resulting Agency Comment Spec In Lab Gretchen Yoon MD CHEMISTRY ORDERABLES Performing Organization Address City/[facility]/[place] [address] (ABNORMAL) BMP w/fasting Glucose (12/01/2019 3:55 AM EDT) P athologist Signature Glucose 148 (H) 65 - [address] [facility] Fasting mg/dL [facility] LABORATORY Comment: ?Fasting* Glucose Interpretive C riteria [...] of Diabetes Mellitus, Position Statement from the [employer]. ??Diabete s Care, Volume 33, Supplement 1, Jul 2009 BUN 11 10 - 20 mg/dL [facility] LABORATORY Creatinine 0.96 0.80 - 1.50 mg/dL [facility] LABORATORY Sodium 132 (L) 135 - 145 mmol/L [facility] LABORATORY Potassium 4.0 3.5 - 5.0 mmol/L [facility] LABORATORY Comment: Please note: ??Patients with [...] Calcium 7.6 (L) 8.5 - 10.5 mg/dL [facility] LABORATORY Estimated GFR 78 >=60 mL/min/1.73 m?? [facility] Comment: The eGFR was calculated using the CKD-EP I equation. As with all creatinine based estimates of kidney function, eGFR values calculated with the CKD-EPI equation are not accurate in patients wi th acute kidney failure, extremes of body mass or the acutely ill. [email or web address] eGFR 91 >=60 mL/min/1.73 m?? [facility] Comment: The eGFR was calculated using the CKD-EP I equation. As with all creatinine based estimates of kidney function, eGFR values calculated with the CKD-EPI equation are not accurate in patients wi th acute kidney failure, extremes of body mass or the acutely ill. [email or web address]/DHnkf Specimen Anatomical Collection Method Collection Time Receive d Time (Source) Location / / Volume Laterality Blood specimen 12/01/2019 3:55 AM 020 4:00 (specimen) EDT AM EDT Resulting Agency Comment Spec In Lab Gretchen Yoon MD CHEMISTRY ORDERABLES Performing Organization Address City/State/[place] [address] (ABNORMAL) Hemogram (12/01/2019 3:55 AM EDT) Analysis Performed At Patho [facility] Time Signature WBC 11.0 (H) 4.0 - 9.[address] [facility] x10(3)/[facility] LABORATORY RBC 3.46 (L) 4.58 - [facility] 5.54 [facility] x10(6)/[facility] LABORATORY Hemoglobin 10.2 (L) 13.7 - [facility] 16.5 gm/dL [facility] LABORATORY Hematocrit 31.2 (L) 40.5 - [facility] 48.5 % [facility] LABORATORY MCV 90.2 82.9 - [facility] 93.1 [facility] LABORATORY MCH 29.5 27.5 - [facility] 32.1 pg [facility] LABORATORY MCHC 32.7 32.0 - [facility] 35.7 gm/dL [facility] LABORATORY Platelets 98 (L) 145 - [address] [facility] x10(3)/[facility] LABORATORY RDWSD 47.9 (H) 36.0 - [facility] 45.0 [facility] LABORATORY RDWCV 14.6 (H) 11.4 - [facility] 13.8 % [facility] LABORATORY MPV 12.3 7.6 - 12.9 [facility] LABORATORY nRBC % Auto 0.0 % [facility] nRBC Abs Auto 0.000 0.000 - [facility] 0.000 [facility] x10(3)/[facility] LABORATORY Specimen Anatomical Collection Method Collection Time Receive d Time (Source) Location / / Volume Laterality Blood specimen 12/01/2019 3:55 AM 020 4:00 (specimen) EDT AM EDT Resulting Agency Comment Spec In Lab Gretchen Yoon MD HEMATOLOGY ORDERABLES Performing Organization Address City/State/[place] [address] (ABNORMAL) BLOOD GAS 2 ARTERIAL (11/30/2019 10:39 PM EDT) Analysis Performed At [facility] Time Signature pH Art 7.45 7.35 - [facility] 7.45 [facility] LABORATORY pCO2 Art 23 (L) 35 - 45 [facility] LABORATORY pO2 Art 76 (L) 85 - 104 [facility] LABORATORY HCO3 Art 15.3 (L) 20.0 - [facility] 26.0 [facility] mmol/[facility] LABORATORY BE Art -8.7 (L) -3.0 - 3.[address] [facility] mmol/L [facility] LABORATORY Hgb Blood Gas 11.7 (L) 13.7 - [facility] 16.5 gm/dL [facility] O2HB Art 94.2 94.0 - [facility] 97.0 % [facility] LABORATORY COHB Art 0.5 % [facility] Comment: Nonsmokers: 0.5-1.5% COHB Smokers: Variable, but usually less than 10% Toxic: 20-30% COHB Lethal: Greater than 60% COHB METHB Art 0.6 <=1.5 % [facility] LABORATORY Na Whole Blood 133 (L) 135 - 145 mmol/L [facility] LABORATORY K Whole Blood 3.8 3.5 - 5.0 mmol/L [facility] LABORATORY Comment: Please note: Patients [...] Blood 109 (H) 98 - 107 mmol/L [facility] LABORATORY Gluc Whole Bld 120 65 - 199 mg/dL [facility] LABORATORY Comment: Diabetes: >=200 mg/dL plus symp toms. Lactate WB 0.8 0.5 - 2.2 mmol/L [facility] LABORATORY FIO2 Art 100 % [facility] LABORATORY PF Ratio Art 76 [facility] LABORATORY Specimen Anatomical Collection Method Collection Time Receive d Time (Source) Location / / Volume Laterality Blood specimen 11/30/2019 10:39 0 (specimen) PM EDT 10:39 PM EDT Gretchen Yoon MD CHEMISTRY ORDERABLES Performing Organization Address City/State/[place] [address] EKG 12 Lead (11/30/2019 [...] (Bezet) Calculated P 12 degrees [facility] [place] Calculated R 19 degrees [facility] [place] Calculated T -47 degrees [facility] [place] INTERPRETATION Sinus rhythm with Premature supraventricular complexes [...] Yoon MD ECG ORDERABLES Performing Organization Address City/[facility]/ZIP Code Phon e Number MUSE SYSTEM (ABNORMAL) Urinalysis Microscopic Exam (11/30/2019 8:40 PM EDT) P athologist Signature RBC UA 27 (H) 0 - 3 /HPF [facility] WBC UA 4 (H) 0 - 3 /HPF [facility] Hyaline Cast 3 (H) 0 - 2 /LPF [facility] LABORATORY Specimen (Source) Anatomical Collection Method Collection Time Re ceived Time Location / / Volume Laterality Urine specimen 11/30/2019 8:40 11/30/2019 obtained via PM EDT 10:51 PM EDT indwelling urinary catheter (specimen) Resulting Agency Comment Spec In Lab Rossy Winn MD URINE ORDERABLES Performing Organization Address City/[facility]/ZIP Code Phon e Number [place] [phone]OS[address] LAB[address]ORY Drive (ABNORMAL) Urinalysis with reflex Culture (11/30/2019 8:40 PM EDT) Patholo gist Method Time Signature Glucose UA Negative Negative [facility] mg/dL [facility] LABORATORY Protein UA Negative Negative [facility] mg/dL [facility] LABORATORY Bilirubin UA Negative Negative [facility] mg/dL [facility] LABORATORY Comment: Clinical correlation required for positi ve Urine Bilirubin results as false positive may occur with some drugs and d rug related products. If a false positive is suspected a serum total bili morales should be considered if clinically indicated. Urobilinogen UA Normal Normal mg/dL [facility] LABORATORY pH UA 5.5 5.0 - 8.0 [facility] LABOR[facility]ORY Blood UA Moderate (A) Negative mg/dL [facility] Ketones UA 40 (A) Negative mg/dL [facility] Nitrite UA Negative Negative [facility]OR[facility]ORY Leukocytes UA Trace (A) Negative [facility] LABORATORY Appearance UA Clear Clear [facility] LABORATORY Spec [place] UA 1.026 1.006 - 1.030 [facility] LABORATORY Color UA Yellow Yellow [facility] LABORATORY Culture Reflexed No [facility] LABORATORY Specimen (Source) Anatomical Collection Method Collection Time Re ceived Time Location / / Volume Laterality Urine specimen 11/30/2019 8:40 11/30/2019 obtained via PM EDT 10:51 PM EDT indwelling urinary catheter (specimen) Resulting Agency Comment Spec In Lab Gretchen Yoon MD URINE ORDERABLES Performing Organization Address City/State/[place] [address] (ABNORMAL) pro-Brain Natriuretic Peptide (11/30/2019 8:30 PM EDT) P athologist Signature ProBNP 2,802 (H) <=125 [facility] pg/mL [facility] LABORATORY Specimen Anatomical Collection Method Collection Time Receive d Time (Source) Location / / Volume Laterality Blood specimen Venous Draw / 11/30/2019 8:30 PM 2019 8:36 (specimen) Unknown EDT PM EDT Resulting Agency Comment Spec In Lab Rossy Winn MD CHEMISTRY ORDERABLES Performing Organization Address City/State/ZIP Code Phon e Number [place] [phone] (ABNORMAL) Troponin (11/30/2019 8:30 PM EDT) athologist Signature Troponin-T 5.04 (H) 0.00 - MELINA MONAE 0.00 ng/mL [facility] LABORATORY Comment: The 99th percentile for Troponin T is le ss than 0.01 ng/mL, any detectable cTnT concentration using this assay should be considered elevated. According to the third universal definit ion of myocardial infarction the following criteria with a clinical prese ntation consistent with acute myocardial ischemia meets the diagnosis for a myocardial infarction (SC). Detection of a rise and/or fall of [...] additional sample may be indicated. Reference: Third Vallejo Definition of Myocardial Infarction. Journal of the [employer] College of Cardiology 2012;60:1581-98 Specimen Anatomical Collection Method Collection Time Receive d Time (Source) Location / / Volume Laterality Blood specimen Venous Draw / 11/30/2019 8:30 PM 2019 8:36 (specimen) Unknown EDT PM EDT Resulting Agency Comment Spec In Lab Rossy Winn MD CHEMISTRY ORDERABLES Performing Organization Address City/State/[place] [address] Magnesium (11/30/2019 8:30 PM EDT) athologist Signature Magnesium 0.79 0.69 - 1.07 [facility]/L [facility] LABORATORY Specimen Anatomical Collection Method Collection Time Receive d Time (Source) Location / / Volume Laterality Blood specimen 11/30/2019 8:30 PM 020 8:35 (specimen) EDT PM EDT Resulting Agency Comment Spec In Lab Gretchen Yoon MD CHEMISTRY ORDERABLES Performing Organization Address City/State/[place] [address] (ABNORMAL) Basic Metabolic Panel (non-fasting) (11/30/2019 8:30 PM EDT) athologist Signature Glucose Lvl 132 65 - [address] [facility] mg/dL [facility] LABORATORY Comment: Diabetes: >=200 mg/dL plus symp toms BUN 12 10 - 20 mg/dL [facility] LABORATORY Creatinine 0.94 0.80 - 1.50 mg/dL [facility] LABORATORY Sodium 136 135 - 145 mmol/L [facility] LABORATORY Potassium 3.9 3.5 - 5.0 mmol/L [facility] LABORATORY Comment: Please note: ??Patients with [...] Calcium 7.9 (L) 8.5 - 10.5 mg/dL [facility] LABORATORY Estimated GFR 80 >=60 mL/min/1.73 m?? [facility] Comment: The eGFR was calculated using the CKD-EP I equation. As with all creatinine based estimates of kidney function, eGFR values calculated with the CKD-EPI equation are not accurate in patients wi th acute kidney failure, extremes of body mass or the acutely ill. http://Guidekick/DHnkf eGFR 93 >=60 mL/min/1.73 m?? [facility] Comment: The eGFR was calculated using the CKD-EP I equation. As with all creatinine based estimates of kidney function, eGFR values calculated with the CKD-EPI equation are not accurate in patients wi th acute kidney failure, extremes of body mass or the acutely ill. http://[email or web address]/DHnkf Specimen Anatomical Collection Method Collection Time Receive d Time (Source) Location / / Volume Laterality Blood specimen 11/30/2019 8:30 PM 020 8:35 (specimen) EDT PM EDT Resulting Agency Comment Spec In Lab Gretchen Yoon MD CHEMISTRY ORDERABLES Performing Organization Address [facility] Phon e Number [address] Blood culture (11/30/2019 8:30 PM EDT) Patholo gist Method Time Signature Blood Culture No growth MELINA MONAE at 5 days. [facility] LABORATORY Specimen Anatomical Collection Method Collection Time Receive d Time (Source) Location / / Volume Laterality Blood specimen 11/30/2019 8:30 PM 020 9:40 (specimen) EDT PM EDT Comment: L HAND Resulting Agency Comment Spec In Lab Gretchen Yono MD MICROBIOLOGY - BLOOD ORDERAB LES Performing Organization Address City/[facility] [place] [address] Blood culture (11/30/2019 8:30 PM EDT) Patholo gist Method Time Signature Blood Culture No growth MELINA MONAE at 5 days. [facility] LABORATORY Specimen Anatomical Collection Method Collection Time Receive d Time (Source) Location / / Volume Laterality Blood specimen 11/30/2019 8:30 PM 020 9:40 (specimen) EDT PM EDT Comment: R HAND Resulting Agency Comment Spec In Lab Gretchen Yoon MD MICROBIOLOGY - BLOOD ORDERAB LES Performing Organization Address [facility] Phon e Number [address] XR Chest One View [...] Art 7.45 7.35 - [facility] 7.45 [facility] LABORATORY pCO2 Art 27 (L) 35 - [address] [facility] mmHg [facility] LABORATORY pO2 Art 68 (L) 85 - 104 [facility] LABORATORY HCO3 Art 18.2 (L) 20.0 - [facility] 26.0 [facility] mmol/[facility] LABORATORY BE Art -5.9 (L) -3.0 - 3.[address] [facility] mmol/L [facility] LABORATORY Hgb Blood Gas 12.4 (L) 13.7 - [facility] 16.5 gm/dL [facility] O2HB Art 93.1 (L) 94.0 - [facility] 97.0 % [facility] LABORATORY COHB Art 0.8 % [facility] Comment: Nonsmokers: 0.5-1.5% COHB Smokers: Variable, but usually less than 10% Toxic: 20-30% COHB Lethal: Greater than 60% COHB METHB Art 0.4 <=1.5 % [facility] LABORATORY Na Whole Blood 133 (L) 135 - 145 mmol/L [facility] LAB[facility]AT[facility] K Whole Blood 3.6 3.5 - 5.0 mmol/L [facility] LABOR[facility]ORY Comment: Please note: Patients [...] Blood 108 (H) 98 - 107 mmol/L [facility] LABORATORY Gluc Whole Bld 121 65 - 199 mg/dL [facility] LABOR[facility]ORY Comment: Diabetes: >=200 mg/dL plus symp toms. Lactate WB 1.2 0.5 - 2.2 mmol/L [facility] LAB[facility] Flow Art 5.0 LPM [facility] LABOR[facility]ORY Specimen Anatomical Collection Method Collection Time Receive d Time (Source) Location / / Volume Laterality Blood specimen 11/30/2019 8:09 PM 020 8:09 (specimen) EDT PM EDT Gretchen Yoon MD CHEMISTRY ORDERABLES Performing Organization Address City/State/ZIP Code Phon e Number [place] [phone] CT Angiogram [place] (11/30/2019 4:36 PM EDT) Anatomical [...] CT HEAD WO CONTRAST (GENERIC), CT ANGIOGRAM [place] CLINICAL HISTORY: Headache, intracranial hemorrhage suspected F/U on known ICH - assessing for propaga tion TECHNIQUE: CT head performed without intravenous co ntrast administration. CT angiogram [place] 65 cc Omnipaque 350 administered [...] HEAD WO CONTRAST (GENERI C), CT ANGIOGRAM [place] CLINICAL HISTORY: Headache, intracranial hemorrhage suspected F/U on known ICH - assessing for propaga tion TECHNIQUE: CT head performed without intravenous co ntrast administration. CT angiogram [place] 65 cc Omnipaque 350 administered [...] CT HEAD WO CONTRAST (GENERIC), CT ANGIOGRAM [place] CLINICAL HISTORY: Headache, intracranial hemorrhage suspected F/U on known ICH - assessing for propaga tion TECHNIQUE: CT head performed without intravenous co ntrast administration. CT angiogram [place] 65 cc Omnipaque 350 administered [...] HEAD WO CONTRAST (GENERI C), CT ANGIOGRAM [place] CLINICAL HISTORY: Headache, intracranial hemorrhage suspected F/U on known ICH - assessing for propaga tion TECHNIQUE: CT head performed without intravenous co ntrast administration. CT angiogram [place] 65 cc Omnipaque 350 administered [...] signed by: Angel Luis Barboza MD, [facility] ([phone]), at 11/30/2019 5:04 PM Gretchen Yoon MD [...] 453 ms MUSE SYSTEM (Bezet) Calculated P [place] 52 degrees MUSE SYSTEM Calculated R [place] 5 degrees MUSE SYSTEM Calculated T [place] -60 degrees MUSE SYSTEM INTERPRETATION Sinus rhythm [...] [place] ? (Age): 1945(74y) Med Rec#: ? [id number] ?Sex: ?M ? Site Loc: ? [facility] ?Ht / Wt: ??178(cm)/64(kg) Pt. Loc: ?[facility]U ? BSA: ?1.8 Study Date: ?? 11/30/2019 ?Pt. Type: Inpatient Tape: ? Referring: GILMER Reading: Tello Mejia ([id number]) Adapted Physical Education Aide: Friend, Lolita Diagnosis: *ST elevation (STEMI) myocardial [...] Vmax ?0.58 ? m/sec ? MV deceleration lqgs362.05 ? m sec ? MV A-wave Vmax [...] ? Mid-Inferior ?Akinetic ? Mid-Inferoseptal ?Normal ? [place]-Septal ? Normal ? [place]-Anterior ? Normal ? [place]-Lateral ?Normal ? [place]-Inferior ? Hypokinetic ? [place]-Tip ?Normal ? This report has been electronically sign ed by: _ Tello Mejia MD ? 11/30/2019 12: 45:27 Images reviewed and [facility] Procedure Note Tello Mejia MD - 11/30/2019Formatti ng of this note might be different from the original. Procedure: Transthoracic Echocardiogram Patient: RITA ACOSTA(Age): [birth year](74y) Med Rec#: [id number] Sex: M Site Loc: [facility] Ht / Wt: 178(cm)/64(kg) Pt. Loc: [facility] BSA: 1.8 Study Date: 11/30/2019 Pt. Type: Inpatie nt Tape: Referring: DONAYMICMUNIRAJ Reading: Tello Mejia ([id number]) Adapted Physical Education Aide: Lolita Prado Diagnosis: *ST elevation (STEMI) myocardial [...] MV E-wave Vmax 0.58 m/sec MV deceleration [id number] msec MV A-wave Vmax 0.74 m/sec MV [...] Hypokinetic Mid-Posterolateral Hypokinetic Mid-Inferior Akinetic Mid-Inferoseptal Normal [place]-Septal Normal [place]-Anterior Normal [place]-Lateral Normal [place]-Inferior Hypokinetic [place]-Tip Normal This report has been electronically sign ed by: _ Tello Mejia MD 11/30/2019 12:45:27 Images reviewed and interpretation rafaela devin [facility] Cardiac Ultrasound Laboratory Gretchen [...] signed by: Angel Luis Barboza MD, [facility] ([phone]), at 11/30/2019 12:04 PM Narrative 11/30/2019 12:04 [...] Emergency Department Magnesium 0.88 0.69 - 1.[address] [facility] mmol/L [facility] LABORATORY Specimen Anatomical Collection Method Collection Time Receive d Time (Source) Location / / Volume Laterality Blood specimen Venous Draw / 11/30/2019 8:30 AM 2019 8:37 (specimen) Unknown EDT AM EDT Resulting Agency Comment Spec In Lab Rossy Winn MD CHEMISTRY ORDERABLES Performing Organization Address City/[facility]/[place] [address] (ABNORMAL) CK (11/30/2019 8:30 AM EDT) athologist [facility] CK, Total 1,645 (H) 0 - 200 [facility] unit/L [facility] LABOR[facility] Specimen Anatomical Collection Method Collection Time Receive d Time (Source) Location / / Volume Laterality Blood specimen 11/30/2019 8:30 AM 020 8:32 (specimen) EDT AM EDT Resulting Agency Comment Spec In Lab Gretchen Yoon MD CHEMISTRY ORDERABLES Performing Organization Address City/[facility] [place] [address] (ABNORMAL) Troponin (11/30/2019 8:30 AM EDT) athologist [facility] Troponin-T 8.04 (H) 0.00 - MELINA DOV 0.00 ng/mL [facility] LABORATORY Comment: result rechecked-rancho The 99th percentile for Troponin T is le ss than 0.01 ng/mL, any detectable cTnT concentration using this assay should be considered elevated. According to the third universal definit ion of myocardial infarction the following criteria with a clinical prese ntation consistent with acute myocardial ischemia meets the diagnosis for a myocardial infarction (SC). Detection of a rise and/or fall of [...] additional sample may be indicated. Reference: Third Vallejo Definition of Myocardial Infarction. Journal of the Indian College of Cardiology 2012;60:1581-98 Specimen Anatomical Collection Method Collection Time Receive d Time (Source) Location / / Volume Laterality Blood specimen 11/30/2019 8:30 AM 020 8:32 (specimen) EDT AM EDT Resulting Agency Comment Spec In Lab Gretchen Yoon MD CHEMISTRY ORDERABLES Performing Organization Address City/State/ZIP Code Phon e Number [place] [phone] EKG 12 Lead (11/30/2019 7:57 AM EDT) Component Value Ref Range Test Analysis Performed Pathologis t Method Time At Signature Ventricular rate 64 BPM MUSE SYSTEM Atrial Rate 64 BPM MUSE SYSTEM P-R Interval 132 ms MUSE SYSTEM QRS Duration 78 ms MUSE SYSTEM Q-T Interval 420 ms MUSE SYSTEM QTC Calculated 433 ms MUSE SYSTEM (Bezet) Calculated P [place] 28 degrees MUSE SYSTEM Calculated R [place] 7 degrees MUSE SYSTEM Calculated T [place] -33 degrees MUSE SYSTEM INTERPRETATION Sinus rhythm [...] Signature Glucose 147 (H) 65 - [address] [facility] Fasting mg/dL [facility] LABORAT[facility] Comment: ?Fasting* Glucose Interpretive C riteria [...] of Diabetes Mellitus, Position Statement from the [employer] Diabetes [employer]. ??Diabete s Care, Volume 33, Supplement 1, Jul 2009 BUN 13 10 - 20 mg/dL [facility] LABORATORY Creatinine 0.90 0.80 - 1.50 mg/dL [facility] LABORATORY Sodium 135 135 - 145 mmol/L [facility] LABORATORY Potassium 3.9 3.5 - 5.0 mmol/L [facility] LABORATORY Comment: Please note: ??Patients with [...] Calcium 7.5 (L) 8.5 - 10.5 mg/dL [facility] LABORATORY Estimated GFR 84 >=60 mL/min/1.73 m?? [facility] Comment: The eGFR was calculated using the CKD-EP I equation. As with all creatinine based estimates of kidney function, eGFR values calculated with the CKD-EPI equation are not accurate in patients wi th acute kidney failure, extremes of body mass or the acutely ill. http://Guidekick/[facility]nkf eGFR 98 >=60 mL/min/1.73 m?? [facility] Comment: The eGFR was calculated using the CKD-EP I equation. As with all creatinine based estimates of kidney function, eGFR values calculated with the CKD-EPI equation are not accurate in patients wi th acute kidney failure, extremes of body mass or the acutely ill. http://Guidekick/[facility]nkf Specimen Anatomical Collection Method Collection Time Receive d Time (Source) Location / / Volume Laterality Blood specimen 11/30/2019 2:15 AM 020 2:29 (specimen) EDT AM EDT Resulting Agency Comment Spec In Lab Gretchen Yoon MD CHEMISTRY ORDERABLES Performing Organization Address City/State/ZIP Code Phon e Number [place] [phone] (ABNORMAL) Hemogram (11/30/2019 2:15 AM EDT) Analysis Performed At Patho logist Time Signature WBC 11.2 (H) 4.0 - 9.[address] [facility] x10(3)/[facility] LABORATORY RBC 3.83 (L) 4.58 - [facility] 5.54 [facility] x10(6)/[facility] LABORATORY Hemoglobin 11.4 (L) 13.7 - [facility] 16.5 gm/dL [facility] LABORATORY Hematocrit 35.2 (L) 40.5 - [facility] 48.5 % [facility] LABORAT[facility] MCV 91.9 82.9 - [facility] 93.1 fL [facility] LABORATORY MCH 29.8 27.5 - [facility] 32.1 pg [facility] LABORATORY MCHC 32.4 32.0 - [facility] MONAE 35.7 gm/dL [facility] LABORATORY Platelets 122 (L) 145 - 357 MELINA MARSHDOV x10(3)/[facility] LABORATORY RDWSD 49.8 (H) 36.0 - M[place] MONAE 45.0 [facility] LABORATORY RDWCV 14.8 (H) 11.4 - [place] 13.8 % [facility] LABORATORY MPV 12.1 7.6 - 12.9 MELINA MONAE [facility] LABORATORY nRBC % Auto 0.0 % [facility] LABORATORY nRBC Abs Auto 0.000 0.000 - M[place] MARSHDOV 0.000 [facility] x10(3)/[facility] LABORATORY Specimen Anatomical Collection Method Collection Time Receive d Time (Source) Location / / Volume Laterality Blood specimen 11/30/2019 2:15 AM 020 2:29 (specimen) EDT AM EDT Resulting Agency Comment Spec In Lab Gretchen Yoon MD HEMATOLOGY ORDERABLES Performing Organization Address City/State/[place] [address] (ABNORMAL) CK (11/30/2019 2:15 AM EDT) athologist [facility] CK, Total 1,969 (H) 0 - 200 [facility] DOV unit/L [facility] LABORATORY Specimen Anatomical Collection Method Collection Time Receive d Time (Source) Location / / Volume Laterality Blood specimen 11/30/2019 2:15 AM 020 2:29 (specimen) EDT AM EDT Resulting Agency Comment Spec In Lab Gretchen Yoon MD CHEMISTRY ORDERABLES Performing Organization Address City/State/[place] [address] (ABNORMAL) Troponin (11/30/2019 2:15 AM EDT) athologist [facility] Troponin-T 11.73 (H) 0.00 - M[place] MONAE 0.00 ng/mL [facility] LAB[facility] Comment: result rechecked-slw The 99th percentile for Troponin T is le ss than 0.01 ng/mL, any detectable cTnT concentration using this assay should be considered elevated. According to the third universal definit ion of myocardial infarction the following criteria with a clinical prese ntation consistent with acute myocardial ischemia meets the diagnosis for a myocardial infarction (SC). Detection of a rise and/or fall of [...] additional sample may be indicated. Reference: Third Vallejo Definition of Myocardial Infarction. Journal of the [employer] College of Cardiology 2012;60:1581-98 result rechecked- The 99th percentile for Troponin T is le ss than 0.01 ng/mL, any detectable cTnT concentration using this assay should be considered elevated. According to the third universal definit ion of myocardial infarction the following criteria with a clinical prese ntation consistent with acute myocardial ischemia meets the diagnosis for a myocardial infarction (SC). Detection of a rise and/or fall of [...] additional sample may be indicated. Reference: Third [place] Definition of Myocardial Infarction. Journal of the [employer] College of Cardiology 2012;60:1581-98 Corrected from 11.73 ng/ml [HI] on 11/29 3:11:51 EDT by Debi Hawley Specimen Anatomical Collection Method Collection Time Receive d Time (Source) Location / / Volume Laterality Blood specimen 11/30/2019 2:15 AM 020 2:29 (specimen) EDT AM EDT Resulting Agency Comment Spec In Lab Gretchen Yoon MD CHEMISTRY ORDERABLES Performing Organization Address City/[facility]/ZIP Code Phon e Number [address] LDL Cholesterol, Direct (11/30/2019 2:15 AM EDT) P athologist Signature LDL Chol 156 mg/dL [facility] LABORATORY Comment: Lowest Risk: <100 mg/dL Lower Risk: 100-129 mg/dL Borderline High Risk: 130-159 mg/dL High Risk: 160-189 mg/dL Very High Risk: >kb=679 mg/dL Specimen Anatomical Collection Method Collection Time Receive d Time (Source) Location / / Volume Laterality Blood specimen 11/30/2019 2:15 AM 020 2:29 (specimen) EDT AM EDT Resulting Agency Comment Spec In Lab Gretchen Yoon MD CHEMISTRY ORDERABLES Performing Organization Address City/[facility]/ZIP Code Phon e Number [address] (ABNORMAL) Hemoglobin A1c (11/30/2019 [...] Mellitus, Diabetes Care 2013; 36: Suppl. 1, O06-59 Est Avg Gluc See note mg/dL [facility] LABORATORY Comment: Estimated Average Glucose not [...] with hemoglobinopathies. Additional resources are available on [employer] ADA website. Kiko CARBAJAL, Jenn J, Silas R, et al. ??Tr anslating the A1C assay into estimated average glucose values. ??Diabetes Care 2008:31(8):7293-0009. Specimen Anatomical Collection Method Collection Time Receive d Time (Source) Location / / Volume Laterality Blood specimen 11/30/2019 2:15 AM 020 2:29 (specimen) EDT AM EDT Resulting Agency Comment Spec In Lab Gretchen Yoon MD CHEMISTRY ORDERABLES Performing Organization Address City/State/[place] [address] Lipid Panel (Reflex Direct LDL) (11/30/2019 2:15 AM EDT) athologist Signature Chol, Total 195 mg/dL [facility] Comment: Lower Risk: <200 mg/dL Average Risk: 200-239 mg/dL Higher Risk: >sc=044 mg/dL Triglycerides 93 mg/dL [facility] LABORATORY Comment: Average Risk/Lower Risk: <150 mg/dL Borderline High Risk: 150-199 mg/dL High Risk: 200-499 mg/dL Very High Risk: >go=552 mg/dL HDL 32 mg/dL [facility] LABORATORY Comment: Males: ?? Higher Risk: <40 mg/dL Females: ?? HIgher Risk: <50 mg/dL LDL Cholesterol 144 mg/dL [facility] Comment: Lowest Risk: <100 mg/dL Lower Risk: 100-129 mg/dL Borderline High Risk: 130-159 mg/dL High Risk: 160-189 mg/dL Very High Risk: >vt=417 mg/dL Chol/HDL Ratio 6.[address] [facility] LABORATORY Lipid Interpretation See Note [facility] LABORATORY Comment: Lipid management should be guided by a p atient? s ASCVD risk, goals and preferences. ACC/AHA Guidelines recommend high intens ity statin if clinical ASCVD or LDL greater than or equal to 190 mg/dL. http://Guidekick/HKT-VOR-Devktxlbh Adults aged 40-75 with LDL 70-189 mg/dL should have their 10 year ASCVD risk estimated with the ACC/AHA ASCVD risk es timator http://tools.acc.org/IYLNO-Tvjf-Bgtywuan r/ Statin should be discussed if risk [...] Organization Address City/State/[place] [address] (ABNORMAL) CK (11/29/2019 6:35 PM EDT) athologist Signature CK, Total 2,780 (H) 0 - [address] [facility] unit/L [facility] LABORATORY Specimen Anatomical Collection Method Collection Time Receive d Time (Source) Location / / Volume Laterality Blood specimen 11/29/2019 6:35 PM 020 6:53 (specimen) EDT PM EDT Resulting Agency Comment Spec In Lab Gretchen Yoon MD CHEMISTRY ORDERABLES Performing Organization Address City/State/[place] [address] (ABNORMAL) Troponin (11/29/2019 6:35 PM EDT) athologist Signature Troponin-T 17.60 (H) 0.00 - [facility] 0.00 ng/mL [facility] LABORATORY Comment: result rechecked-az The 99th percentile for Troponin T is le ss than 0.01 ng/mL, any detectable cTnT concentration using this assay should be considered elevated. According to the third universal definit ion of myocardial infarction the following criteria with a clinical prese ntation consistent with acute myocardial ischemia meets the diagnosis for a myocardial infarction (SC). Detection of a rise and/or fall of [...] additional sample may be indicated. Reference: Third Vallejo Definition of Myocardial Infarction. Journal of the [employer] College of Cardiology 2012;60:1581-98 Specimen Anatomical Collection Method Collection Time Receive d Time (Source) Location / / Volume Laterality Blood specimen 11/29/2019 6:35 PM 020 6:53 (specimen) EDT PM EDT Resulting Agency Comment Spec In Lab Gretchen Yoon MD CHEMISTRY ORDERABLES Performing Organization Address City/State/ZIP Code Phon e Number [place] [phone] EKG 12 Lead (11/29/2019 3:58 PM EDT) [facility] gist Method Time Signature Ventricular rate 73 BPM MUSE SYSTEM Atrial Rate 73 BPM MUSE SYSTEM P-R Interval 152 ms MUSE SYSTEM QRS Duration 84 ms MUSE SYSTEM Q-T Interval 404 ms MUSE SYSTEM QTC Calculated 445 ms MUSE SYSTEM (Bezet) Calculated P [place] 50 degrees MUSE SYSTEM Calculated R [place] -4 degrees MUSE SYSTEM Calculated T [place] 19 degrees MUSE SYSTEM INTERPRETATION Sinus rhythm [...] CLINICAL HISTORY: stemi (as entered by o [facility] provider in the order requisition) TECHNIQUE: [...] lung apex is excluded from the imaged cealr-mc-itud. IMPRESSION: 1. ??New right internal jugular pulmonar [...] lung apex is excluded from the imaged [id number]-[id number]. Procedure Note Estefani Harris MD - 11/29/2019Formattin [...] lung apex is excluded from the imaged [id number]-rw-wapl. IMPRESSION 1. New right internal jugular pulmonary [...] (ABNORMAL) Differential, Automated (11/29/2019 2:32 PM EDT) [facility] Method Time Signature Neutrophils % 83.8 % [facility] LABORATORY Neutr Abs (ANC) 12.12 (H) 1.70 - [facility] 6.10 [facility] x10(3)/[facility] LABORATORY Lymphocytes % 9.1 % [facility] LABORATORY Lymphocytes Abs 1.3 0.9 - 3.[address] [facility] x10(3)/[facility] LABORATORY Monocytes % 6.2 % [facility] LABORATORY Monocyte Abs 0.9 0.3 - 0.[address] [facility] x10(3)/[facility] LABORATORY Eosinophils % 0.0 % [facility] LABORATORY Eosinophils Abs 0.0 0.0 - 0.[address] [facility] x10(3)/[facility] LABORATORY Basophils % 0.3 % [facility] LABORATORY Basophils Abs 0.0 0.0 - 0.[address] [facility] x10(3)/[facility] LABORATORY Immature Gran % 0.60 % [...] (H) 0.00 - 0.04 x10(3)/[facility] LABORATORY Specimen Anatomical Collection Method Collection Time Receive d Time (Source) Location / / Volume Laterality Blood specimen 11/29/2019 2:32 PM 020 2:55 (specimen) EDT PM EDT Resulting Agency Comment Spec In Lab Darrell Glasgow MD HEMATOLOGY ORDERABLES Performing Organization Address City/State/[place] [address] (ABNORMAL) Hemogram (11/29/2019 2:32 PM EDT) Analysis Performed At Patho logist Time Signature WBC 14.5 (H) 4.0 - 9.[address] [facility] x10(3)/[facility] LABORATORY RBC 4.53 (L) 4.58 - [facility] x10(6)/[facility] LABORATORY Hemoglobin 13.1 (L) 13.7 - [facility] 16.5 gm/dL [facility] LABORATORY Hematocrit 40.8 40.5 - [facility] 48.5 % [facility]ATORY MCV 90.1 82.9 - [facility] LABORATORY MCH 28.9 27.5 - [facility] 32.1 pg [facility] LABORATORY MCHC 32.1 32.0 - [facility] 35.7 gm/dL [facility] LABORATORY Platelets 184 145 - [address] [facility] x10(3)/[facility] LABORATORY RDWSD 47.8 (H) 36.0 - [facility] DOV 45.0 [facility] LABORATORY RDWCV 14.5 (H) 11.4 - [facility] DOV 13.8 % [facility] LABORATORY MPV 11.9 7.6 - 12.9 [facility] nRBC % Auto 0.0 % [facility] LABORATORY nRBC Abs Auto 0.000 0.000 - [facility] DOV 0.000 [facility] x10(3)/[facility] LABORATORY Specimen Anatomical Collection Method Collection Time Receive d Time (Source) Location / / Volume Laterality Blood specimen 11/29/2019 2:32 PM 020 2:55 (specimen) EDT PM EDT Resulting Agency Comment Spec In Lab Darrell Glasgow MD HEMATOLOGY ORDERABLES Performing Organization Address City/State/ZIP Code Phon e Number [address] (ABNORMAL) CK (11/29/2019 2:32 PM EDT) athologist Signature CK, Total 3,282 (H) 0 - [address] [facility] unit/L [facility] LABORATORY Specimen Anatomical Collection Method Collection Time Receive d Time (Source) Location / / Volume Laterality Blood specimen 11/29/2019 2:32 PM 020 2:32 (specimen) EDT PM EDT Resulting Agency Comment Spec In Lab Gretchen Yoon MD CHEMISTRY ORDERABLES Performing Organization Address City/[facility]/[place] [address] (ABNORMAL) Troponin (11/29/2019 2:32 PM EDT) athologist Signature Troponin-T 20.33 (H) 0.00 - [facility] 0.00 ng/mL [facility] LABORATORY Comment: The 99th percentile for Troponin T is le ss than 0.01 ng/mL, any detectable cTnT concentration using this assay should be considered elevated. According to the third universal definit ion of myocardial infarction the following criteria with a clinical prese ntation consistent with acute myocardial ischemia meets the diagnosis for a myocardial infarction (SC). Detection of a rise and/or fall of [...] additional sample may be indicated. Reference: Third Vallejo Definition of Myocardial Infarction. Journal of the Indian College of Cardiology 2012;60:1581-98 Specimen Anatomical Collection Method Collection Time Receive d Time (Source) Location / / Volume Laterality Blood specimen 11/29/2019 2:32 PM 020 2:32 (specimen) EDT PM EDT Resulting Agency Comment Spec In Lab Gretchen Yoon MD CHEMISTRY ORDERABLES Performing Organization Address [facility] [place] [address] (ABNORMAL) APTT (11/29/2019 2:32 PM EDT) athologist Signature PTT 114 25 - [address] [facility] (Critical) [facility] LABORATORY Comment: Critical Result called by ?? [...] Yoon MD HEMATOLOGY ORDERABLES Performing Organization Address [facility] [place] [address] (ABNORMAL) Prothrombin Time (11/29/2019 2:32 PM EDT) P athologist Signature PT 13.5 (H) 9.4 - 12.5 [facility] LABORATORY INR 1.2 [facility] [place] [...] Organization Address City/State/[place] [address] (ABNORMAL) Hepatic Function Panel (11/29/2019 2:32 PM EDT) athologist Signature Total Protein 6.3 6.1 - [facility] Albumin 3.6 3.2 - 5.2 [facility] gm/dL [facility] AST 257 (H) 0 - 39 [facility] unit/L [facility] ALT 50 0 - 55 [facility]/L [facility] Alk Phos 84 40 - [address] [facility] unit/L [facility] Total 0.3 0.2 - 1.3 [facility] Bilirubin mg/dL [facility] Bili, Direct 0.1 0.0 - 0.3 [facility] mg/dL [facility] Specimen Anatomical Collection Method Collection Time Receive d Time (Source) Location / / Volume Laterality Blood specimen 11/29/2019 2:32 PM 020 2:32 (specimen) EDT PM EDT Resulting Agency Comment Spec In Lab Gretchen Yoon MD CHEMISTRY ORDERABLES Performing Organization Address City/[facility]/[place] [address] (ABNORMAL) pro-Brain Natriuretic Peptide (11/29/2019 2:32 PM EDT) P athologist Signature ProBNP 272 (H) <=125 pg/mL [facility] Specimen Anatomical Collection Method Collection Time Receive d Time (Source) Location / / Volume Laterality Blood specimen 11/29/2019 2:32 PM 020 2:32 (specimen) EDT PM EDT Resulting Agency Comment Spec In Lab Gretchen Yoon MD CHEMISTRY ORDERABLES Performing Organization Address City/[facility]/[place] [address] Magnesium (11/29/2019 2:32 PM EDT) athologist Signature Magnesium 0.76 0.69 - 1.[address] [facility] mmol/L [facility] Specimen Anatomical Collection Method Collection Time Receive d Time (Source) Location / / Volume Laterality Blood specimen 11/29/2019 2:32 PM 020 2:32 (specimen) EDT PM EDT Resulting Agency Comment Spec In Lab Gretchen Yoon MD CHEMISTRY ORDERABLES Performing Organization Address City/State/ZIP Code Phon e Number [address] (ABNORMAL) Basic Metabolic Panel (non-fasting) (11/29/2019 2:32 PM EDT) athologist Signature Glucose Lvl 149 65 - [address] [facility] mg/dL [facility] Comment: Diabetes: >=200 mg/dL plus symp toms BUN 16 10 - 20 mg/dL [facility] Creatinine 0.94 0.80 - 1.50 mg/dL [facility] Sodium 135 135 - 145 mmol/L [facility] Potassium 4.5 3.5 - 5.0 mmol/L [facility] Comment: Please note: ??Patients with [...] Calcium 8.0 (L) 8.5 - 10.5 mg/dL [facility] Estimated GFR 80 >=60 mL/min/1.73 m?? [facility] Comment: The eGFR was calculated using the CKD-EP I equation. As with all creatinine based estimates of kidney function, eGFR values calculated with the CKD-EPI equation are not accurate in patients wi th acute kidney failure, extremes of body mass or the acutely ill. http://Guidekick/DHnkf eGFR 93 >=60 mL/min/1.73 m?? [facility] Comment: The eGFR was calculated using the CKD-EP I equation. As with all creatinine based estimates of kidney function, eGFR values calculated with the CKD-EPI equation are not accurate in patients wi th acute kidney failure, extremes of body mass or the acutely ill. [email or web address]/[facility]ISnkf Specimen Anatomical Collection Method Collection Time Receive d Time (Source) Location / / Volume Laterality Blood specimen 11/29/2019 2:32 PM 020 2:32 (specimen) EDT PM EDT Resulting Agency Comment Spec In Lab Gretchen Yoon MD CHEMISTRY ORDERABLES Performing Organization Address City/[facility] [place] [address] EKG 12 Lead (11/29/2019 11:38 AM EDT) [facility] gist Method Time Signature Ventricular rate 60 BPM MUSE SYSTEM Atrial Rate 60 BPM MUSE SYSTEM P-R Interval 140 ms MUSE SYSTEM QRS Duration 86 ms MUSE SYSTEM Q-T Interval 474 ms MUSE SYSTEM QTC Calculated 474 ms MUSE SYSTEM (Bezet) Calculated P [place] 48 degrees MUSE SYSTEM Calculated R [place] 14 degrees MUSE SYSTEM Calculated T [place] 58 degrees MUSE SYSTEM INTERPRETATION Normal sinus [...] Yoon MD ECG ORDERABLES Performing Organization Address City/[facility]/ZIP [facility] Phon e Number MUSE SYSTEM CARDIAC CATHETERIZATION (11/29/2019 11:15 AM EDT) Anatomical Region Laterality Modality Other Specimen (Source) Anatomical Location Collection Method / Collectio n Time Received Time / Laterality Volume Narrative 11/30/2019 1:09 PM EDT ?[facility] ? Cardiac Cathete rization/Intervention Report ? Patient Name: Salinas, Angel Luis H. ? Procedure Date: 11/29/2019 ? A #: [id number] ? Primary Physician: Young, Gretchen N ? Case #: [id number] ? File Name: [id number] ? Catheterization Order Number: [id number] ? [facility] ? Final Report [place], [place] ? Patient Name: ? Angel Luis Salinas ? ID#: ?[id number] ? : ?1945 ? Procedure Date: ? [...] was Emergent. The indication for ?the laboratory immunologist visit is ACS less than or equal [...] administered prior to arrival in the laboratory immunologist. ?Recommended anti-platelet/anti- thrombotic regimen: ?Continue aspirin 81 mg daily fo r indefinitely. ?Continue clopidogrel 75 mg marco a y for 12 months then stop. ?These recommendations are made at the time of the intervention. Patient ?and provider preferences or a c hanging clinical situation may require ?modification of this regimen. C marvult [facility] Interventional Cardiology for ?questions. ? Conclusions: ?* [...] note might be different from the original. [facility] Cardiac Catheterization/Intervention Re port Patient Name: Angel Luis Salinas Procedure Date: 11/29/2019 A #: [id number] Primary Physician: Gretchen Yoon Case #: [id number] File Name: [id number] Catheterization Order Number: [id number] [facility] Final Report [place], [place] Patient Name: Angel Luis Salinas ID#: [id number] : 1945 Procedure Date: November 29, [...] designated as ASA Class IV. The [facility] clinical frailty scale is 4: Vulnerable. Diagnostic Tests: Electrocardiography: EKG was assessed by ECG. EKG was Abnorm al. EKG showed ST Deviation >= 0.5 mm. Medications Prior to Procedure: Aspirin. Indications for Diagnostic Cath: The priority of the diagnostic procedur e was Emergent. The indication for the laboratory immunologist visit is ACS less than or equal [...] priority for the procedure was Emergent. The [facility] indication for the procedure was [...] this intervention was 10%. The final TI SC flow was 2. Distal 90% Thrombectomy and [...] this intervention was 10%. The final TI SC flow was 2. Vascular Access: Vascular Access [...] prior t o arrival in the laboratory immunologist. Recommended anti-platelet/anti-thrombot ic regimen: Continue aspirin 81 mg daily for indefi nitely. Continue clopidogrel 75 mg daily for 12 months then stop. These recommendations are made at the t loyda of the intervention. Patient and provider preferences or a changing clinical situation may require modification of this regimen. Consult D [facility] Interventional Cardiology for questions. Conclusions: [...] Signature POC pH 7.33 (L) 7.35 - [facility] 7.45 [facility] POC PCO2 33 (L) 35 - [address] [facility] mmHg [facility] POC PO2 56 (L) 85 - 104 [facility]ATORY POC Base Excess -8.0 (L) -3.0 - 3.0 [facility] K mmol/L [facility] POC HCO3 17.4 (L) 20.0 - [facility] 26.0 [facility] mmol/[facility] POC Sodium 137 135 - [address] [facility] mmol/L [facility] POC Potassium 3.6 3.5 - 5.[address] [facility] mmol/L [facility] POC Ionized Ca 1.15 1.15 - [facility] 1.33 [facility] Hematocrit 37.0 (L) 40.0 - [facility] 51.0 % [facility] POC Calc Hgb 12.6 (L) 13.7 - [facility] 17.5 gm/dL [facility] Comment: The calculation of hemoglobin f rom hematocrit assumes a normal MCHC. POC Bgas Loc CC LAB [facility] Specimen Anatomical Collection Method Collection Time Receive d Time (Source) Location / / Volume Laterality Blood specimen 11/29/2019 9:17 AM 020 7:35 (specimen) EDT AM EDT Gretchen Yoon MD CHEMISTRY ORDERABLES Performing Organization Address City/State/[place] [address] EKG 12 Lead (11/29/2019 9:01 AM EDT) Component Value Ref Range Test Analysis Performed Pathologis t Method Time At Signature Ventricular rate 80 BPM MUSE SYSTEM Atrial Rate 79 BPM MUSE SYSTEM QRS Duration 94 ms MUSE SYSTEM Q-T Interval 436 ms MUSE SYSTEM QTC Calculated 502 ms MUSE SYSTEM (Bezet) Calculated R [place] 54 degrees MUSE SYSTEM Calculated T [place] 80 degrees MUSE SYSTEM INTERPRETATION Normal sinus rhythm MUSE SYSTEM Inferior infarct , possibly acute Prolonged QT * ACUTE SC ?? Consider right ventricular involvement in acute [...] 150 mg, Intravenous, ONCE, 1 dose, On Arjay 12/07/19 at 1315, Warning Vesicant/Irritant Medication , [...] CONTINUOUS, Starting on 11/29/19 at 1930, Until Arjay 11/30/19 at 0029, Please stop drip once [...] Intravenous, ONCE PRN, 1 dose, Starting on Arjay 11/30/19 at 1636, Until Arjay 11/30/19 at 1636, Per Protocol, Warning Vesicant/Irritant [...] mL/hr 250 mL/hr, Intravenous, CONTINUOUS, Starting on Arjay 12/07/19 at 0145, Until Arjay 12/07/19 at 0239 levoFLOXacin (LEVAQUIN) 750 mg in New Bag 11/30/2019 11:03 PM EDT 750 mg 100 mL/hr dextrose 5% 150 mL 750 mg, Intravenous, at 100 mL/hr, EVERY 24 HOURS, First dose on Arjay 11/30/19 at 2300, Until Discontinued, Routine, Indication [...] 2 g, Intravenous, ONCE, 1 dose, On [facility] 11/29/19 at 1530, Administer over 120 [...] RN) 150 mg, Intravenous, ONCE, 1 dose, Arjay at 1315, Warning Vesicant/Irritant Medication , Routine [...] ONCE, 1 dose, 12/06/19 at 0515, Ad line erector apprentice over 120 Minutes magnesium sulfate 2 g [...] Oral, EVERY 4 HOURS PRN, Startin g Arjay 11/30/19 at 2016, Until Sun12/08/19 at 1811, hypokalemia
Administer for serum potassium (mMol/L) of 3.9 - 4 See instructions for Potassium Protocol in online policies.
Routine Or potassium chloride ER (K-Dur/Klor-Con) tablet 40 mEqJump to med 40 mEq, Oral, EVERY 4 HOURS PRN, Startin g Arjay 11/30/19 at 2016, Until Sun12/08/19 at 1811, hypokalemia
Administer for serum potassium (mMol/L) of 3.6 - 3.8 See instructions for Potassium Protocol in online policies.
Routine documented in this encounter Care Teams Division Manager Relationship Specialty Start Date End Date France Lam MD PCP - General 05/02/13 02/04/20 [address] [place] [address] documented as of this encounter
--- OUTSIDE RECORDS SUMMARY | 2022-04-18 11:01 | XMS_ITS | Encounter Summary ---
:1945 Author Organization [facility] [place] [address] Care Team Providers Name Role Phone France Lam MD Primary Care Provider Encounter Details Date Type Department Care Team Description 05/13/2013 Ancillary [facility] (Primary Appointment [facility] Cesilia Sebastian, [place] Dx) [place] [id number] Social History Tobacco Use Types Packs/Day Years [...] Value Ref Test Analysis Performed At [facility] gist Range Method Time Signature VB Text VASCUBASE Report Department: Vascular Surgery Lab Patient: [id number] (ANGEL LUIS HI) CPT Code: 25731 ICD-9: 440.21 Referring Physician: FRANCE LAM Indication: [...] Posterior Tibial (Ankle) Art derrell ??84 ?0.64 ??[place]- Biphasic ?? Interpretation: RIGHT: ??Mild lower extremity [...] limb documented in this encounter Care Teams Licensed Mental Health Counselor Relationship Specialty Start Date End Date France Lam MD PCP - General 05/02/13 02/04/20 [address] [place] [address] documented as of this encounter
--- OUTSIDE RECORDS SUMMARY | 2022-04-18 11:01 | XMS_ITS | Encounter Summary ---
:1945 [place] [address] Care Team Providers Name Role Phone France Lam MD Primary Care Provider Encounter Details Date Type Department Care Team Description 11/29/2019 Telephone Cardiovascular [facility] Silvio piedra MD [facility] Devin coh[place] [address] [place] [address] [phone] (Wo rk) Social History Tobacco Use Types [...] 50s EKG: Inferior STEMI Silvio Real MD Patient Support Partner PGY-4 11/29/2019 documented in this encounter Plan of Treatment Not on filedocumented as of this encounter Visit Diagnoses Not on filedocumented in this encounter Care Teams Hack[employer]igs Relationship Specialty Start Date End Date France Lam MD PCP - General 05/02/13 02/04/20 [address] [place] [address] documented as of this encounter
--- OUTSIDE RECORDS SUMMARY | 2022-04-18 11:01 | XMS_ITS | Encounter Summary ---
:1945 [place] [address] Care Team Providers Name Role Phone France Lam MD Primary Care Provider Reason for Visit Auth/Cert Specialty Diagnoses / Procedures Referred By Contact Refer red To Contact Diagnoses STEMI (ST elevation myocardial infarction) STEMI Procedures CARDIAC CATHETERIZATION Referral ID Status Reason Start Date Expiration Date Visits Requ ested Visits Authorized [id number] 1 1 Encounter Details Date Type Department Care Team Description 11/29/2019 Surgery Fiberglass Insulation Installer Gretchen Corral, CARDIAC CATHETERIZATION [facility] [place] [address] [place] [id number] [phone] (Wo rk) Social History Tobacco Use Types [...] Luis Salinas Patient Age: 74 y.o. Language: Chinese Race: White Ethnicity: Not nor Admit date: [...] months on: antiplatelet therapy at discretion of environmental lawyer - Repeat TTE in 3 months to reassess LV function - Repeat BMP in 1-2 weeks given recent start lisinopril - Referred to lipid clinic for consideration of PCSK-9 inhibitor given STEMI with intolerance of statins - Started on amiodarone this admission for recurrent rapid atrial flutter with rates ~170, recommendcontinued assessment of necessity of rhythm control strategy with environmental lawyer - Amiodarone monitoring recommendations as below - [...] please contact your inpatient physician through the [facility] Potline Monitor . Issues after hours and on weekends [...] took two full strength aspirinand came to [facility] ED. At there was found [...] and Compazine. He was transferred directly to [facility] via [facility] for further management. Patient had an emergent PCI with 3 MACARIO stents placed to his RCA, with mild disease of LCX (report pending) at [facility]. He was found to be persistently hypotensive requiring Levo up to 10mcg/min. He was transferred to [facility] after the cath procedure. Bedside RHC showed CI 2.12, PAWP 11, PAP 38/15 indicating hypovolemic state. He received 1L bolus of NS with improvement of his blood pressure to 124/61. History of PAD, HLD - had side reactions to statins - so taking niacin and red rye grain. Chronic active smoker with more than 65 pack years. Family history of ND in father and two uncles. He's takingbaby [...] ip as described above. On arrival at [facility] he was taken for cardiac cath where [...] priority for the procedure was Emergent. [facility] [...] Electronically signed by: Estefani Harris [facility] ([phone]), at 11/29/2019 4:[address] Head wo Contrast (Generic) (Exam End: 11/30/2019 10:41 AM) Impression Focal hemorrhage with small amount of adjacent edema projecting in the region of the left optic tract. Thank you for letting us participate in the care of this patient. For questions regarding this report, please contact the number below. Electronically signed by: Angel Luis Barboza MD, [facility] ([phone]), at 11/30/2019 12:[address] Head wo [...] below. Electronically signed by: [facility] ([phone]), at 11/30/2019 5:[address] Angiogram [place] [...] by: Angel Luis Barboza MD, [facility] ([phone]), at 11/30/2019 5:04 PM MRI Brain wo [...] by: Angel Luis Barboza MD, [facility] ([phone]), at 12/01/2019 8:02 PM XR Chest One [...] Electronically signed by: Roselyn Luciano [facility] ([phone]), at 12/04/2019 6:16 PM MRI Brain wwo [...] ??? Penicillins Pt doesn't remember reaction ??? Enwvljn-Rba-Mcm Reductase Inhibitors Stiff neck, upset stomach, back [...] medications at another hospital and then at [facility] you had a stent placed in a [...] FOR ONE MONTH AND THEN STOP. Your environmental lawyer may tell you to start this medication again after one year. Clopidogrel (Plavix) 75 mg daily - This medication will help prevent clots from forming in your blood, which will help protect the stent that was placed in your heart vessel. TAKE THIS FOR ONE YEAR ANDTHEN DISCUSS WITH YOUR ELECTRONIC WARFARE SPECIALIST WHETHER TO STOP. Amiodarone 400mg twice daily [...] follow up: Your primary care provider and environmental lawyer will manage your blood thinner (apixaban). You do not need lab monitoring of this medication. Diet: Please consume a healthy diet low in cholesterol Follow up Appointments: 12/10/2019 at 3:10PM with PCP Angel Luis Lott Future Appointments Date Time Provider Department Center 12/23/2019 1:30 PM Alfreda Salas APRN [facility] [id number] 12/26/2019 9:40 AM Merlin Sanchez MD [facility] CARD 4A [facility] 12/30/2019 3:40 PM Gretchen Yoon MD [address] Future Appointments and Orders Future Appointments and Orders Future Appointments Provider Department Dept Phone 12/23/2019 1:30 PM Alfreda Salas APRN Neurosurgery at [facility] Arrive at: Home [phone] Please do not come in for this visit. Your provider will call you at the number you provided. 12/26/2019 9:40 AM Merlin Sanchez MD Cardiology at [facility] Arrive at: Home [phone] Please do not come in for this visit. Your provider will call you at the number you provided. 12/30/2019 3:40 PM Gretchen Yoon MD Cardiology at [facility] Arrive at: Home [phone] Please do not come in for this visit. Your provider will call you at the number you provided. Future Orders Complete By Expires Referral to Cardiac Rehab [[id number] Custom] As directed Process Instructions: If no progress note charted, please enter Clinical details in comments. Scheduling Instructions: Questions: My question or request is: STEMI. Cardiac rehab at [facility] Referral to [facility] [REF43 Custom] As directed Process Instructions: If no progress note charted, please enter Clinical details in comments. Scheduling Instructions: Questions: My question or request is: patient with inferior stemi with history of statin allergy (rash) - please evaluate for psck9 inhibitor. Referral to Home Health - at DISCHARGE [SLI9420 CPT(R)] As directed Process Instructions: Scheduling Instructions: Comments: DOCUMENTATION FOR VNA SERVICES PATIENT'S LOCATION: Angel Luis Corcoran [address] [address] (home) Foster Care Social Worker's Name: Self In discussion with the attending physician, it is certified that this patient is under his/her care and that MD, or an CASINO CHANGE ATTENDANT, EMERGENCY ROOM CLINICIAN, or PA who is working directly with him/her, had a ukuk-fm-cnfk encounter that meets the physician khmp-hn-tgrb encounter requirements with this patient on 12/07/2019. [...] HEALTH CARE AGENCY: [facility], PHONE: [phone] FAX: [phone] Start of care: 24-48 hours after hospital [...] MD [address] / [place] [address] All A agencies which cover the area [...] info: PCP Your PCP: France Lam MD [phone] For questions regarding this document or issues relating to this hospitalization on the Cardiology Service, please contact your inpatient physician through the [facility] Potline Monitor . Issues after hours and on weekends will be handled by the Senior Benefits Specialist on-call. Patient Instructions: Neurology Your Diagnosis: Left [...] follow-up appointment in the neurology clinic at [facility]. See below for the appointment [...] 1:30 PM Alfreda Salas APRN Neurosurgery at [facility] Arrive at: Home [phone] Please do not come in for this visit. Your provider will call you at the number you provided. 12/26/2019 9:40 AM Merlin Sanchez MD Cardiology at [facility] Arrive at: Home [phone] Please do not come in for this visit. Your provider will call you at the number you provided. 12/30/2019 3:40 PM Gretchen Yoon MD Cardiology at [facility] Arrive at: Home [phone] Please do not come in for this visit. Your provider will call you at the number you provided. Future Orders Complete By Expires Referral to Cardiac Rehab [[id number] Custom] As directed Process Instructions: If no progress note charted, please enter Clinical details in comments. Scheduling Instructions: Questions: My question or request is: STEMI. Cardiac rehab at [facility] Referral to [facility] [REF43 Custom] As directed Process Instructions: If no progress note charted, please enter Clinical details in comments. Scheduling Instructions: Questions: My question or request is: patient with inferior stemi with history of statin allergy (rash) - please evaluate for psck9 inhibitor. Referral to Home Health - at DISCHARGE [[id number] CPT(R)] As directed Process Instructions: Scheduling Instructions: Comments: DOCUMENTATION FOR VNA SERVICES PATIENT'S LOCATION: [address] [address] (home) Foster Care Social Worker's Name: Self In discussion with the attending physician, it is certified that this patient is under his/her care and that MD, or an CASINO CHANGE ATTENDANT, EMERGENCY ROOM CLINICIAN, or PA who is working directly with him/her, had a ayor-it-dxwu encounter that meets the physician nqjk-sy-vzev encounter requirements with this patient on 12/07/2019. [...] HEALTH CARE AGENCY: [facility], PHONE: [phone] FAX: [phone] Start of care: 24-48 hours after hospital [...] MD [address] / [place] [address] All A agencies which cover the area [...] contact info: PCP Discharge References/Attachments Atrial Fibrillation (Chinese) Cardiac Rehabilitation (Chinese) Heart Failure (Chinese) Heart Failure: Limiting Sodium (Chinese) Hemorrhagic Stroke: General Info (Chinese) Smoking: Stopping (Chinese) Stroke Rehabilitation: General Info (Chinese) Pulmonary Embolism (Chinese) Riki Stevens MD PGY-3, Internal Medicine Cardiology S2, #7995 Associated attestation - Paris Dodd MD - 12/09/2019 4:44 PM EDT Cardiology Attending Discharge Addendum I was the assigned attending environmental lawyer for this clinical encounter. For the purposes [...] complications include novel onset, paroxysmal atrial fibrillation [[id number]: 5] & L-sided diplopia with potential hemineglect [...] My contact information: Paris Matt MD MPH [address], [place] [address] (office); Pager #[phone] Email: documented in this encounter Discharge Instructions Patient InstructionsFiRiki de jesus MD - 12/02/2019 9:56 AM EDT Images from the original note were not included. Why you were hospitalized: You had a heart attack. You received clot-busting medications at another hospital and then at [facility] you had a stent placed in a [...] FOR ONE MONTH AND THEN STOP. Your environmental lawyer may tell you to start this medication again after one year. Clopidogrel (Plavix) 75 mg daily - This medication will help prevent clots from forming in your blood, which will help protect the stent that was placed in your heart vessel. TAKE THIS FOR ONE YEAR ANDTHEN DISCUSS WITH YOUR ELECTRONIC WARFARE SPECIALIST WHETHER TO STOP. Amiodarone 400mg twice daily [...] follow up: Your primary care provider and environmental lawyer will manage your blood thinner (apixaban). You do not need lab monitoring of this medication. Diet: Please consume a healthy diet low in cholesterol Follow up Appointments: 12/10/2019 at 3:10PM with PCP Angel Luis Lott Future Appointments Date Time Provider Department Center 12/23/2019 1:30 PM Alfreda Salas APRN [facility] [id number] [facility] 12/26/2019 9:40 AM Merlin Sanchez MD [facility] CARD 4A [facility] 12/30/2019 3:40 PM Gretchen Yoon MD [facility] CARD 4A [facility] Future Appointments and Orders Future Appointments and Orders Future Appointments Provider Department Dept Phone 12/23/2019 1:30 PM Alfreda Salas APRN Neurosurgery at [facility] Arrive at: Home [phone] Please do not come in for this visit. Your provider will call you at the number you provided. 12/26/2019 9:40 AM Merlin Sanchez MD Cardiology at [facility] Arrive at: Home [phone] Please do not come in for this visit. Your provider will call you at the number you provided. 12/30/2019 3:40 PM Gretchen Yoon MD Cardiology at [facility] Arrive at: Home [phone] Please do not come in for this visit. Your provider will call you at the number you provided. Future Orders Complete By Expires Referral to Cardiac Rehab [[id number] Custom] As directed Process Instructions: If no progress note charted, please enter Clinical details in comments. Scheduling Instructions: Questions: My question or request is: STEMI. Cardiac rehab at [facility] Referral to [facility] [REF43 Custom] As directed Process Instructions: If no progress note charted, please enter Clinical details in comments. Scheduling Instructions: Questions: My question or request is: patient with inferior stemi with history of statin allergy (rash) - please evaluate for psck9 inhibitor. Referral to Home Health - at DISCHARGE [[id number] CPT(R)] As directed Process Instructions: Scheduling Instructions: Comments: DOCUMENTATION FOR VNA SERVICES PATIENT'S LOCATION: [address] [address] (home) Foster Care Social Worker's Name: Self In discussion with the attending physician, it is certified that this patient is under his/her care and that MD, or an CASINO CHANGE ATTENDANT, EMERGENCY ROOM CLINICIAN, or PA who is working directly with him/her, had a rzqk-zf-uxbe encounter that meets the physician pgpb-iw-tnej encounter requirements with this patient on 12/07/2019. [...] HEALTH CARE AGENCY: [facility], PHONE: [phone] FAX: [phone] Start of care: 24-48 hours after hospital [...] MD [address] / [place] [address] All A agencies which cover the area [...] info: PCP Your PCP: France Lam MD [phone] For questions regarding this document or issues relating to this hospitalization on the Cardiology Service, please contact your inpatient physician through the [facility] Potline Monitor . Issues after hours and on weekends will be handled by the Senior Benefits Specialist on-call. Patient Instructions: Neurology Your Diagnosis: Left [...] follow-up appointment in the neurology clinic at [facility]. See below for the appointment time. If you do not have an appointment, you will be called with a time/date for this appointment. ??? Primary Care Provider: Please follow up with your Primary Care Provider within one to 2 weeks ofdischarge. AttachmentsThe following attachments cannot be sent through Care Everywhere. Atrial Fibrillation (Chinese)Cardiac Rehabilitation (Chinese)Heart Failure (Chinese)Heart Failure: Limiting Sodium (Chinese)Hemorrhagic Stroke: General Info (Chinese)Smoking: Stopping (Chinese)Stroke Rehabilitation: General Info (Chinese)Pulmonary Embolism (Chinese)documented in this encounter Medications at Time of [...] consulted in the interim. Vikash Rodriguez Pager: [phone] Paris Dodd MD - 12/08/2019 8:57 AM [...] complications include novel onset, paroxysmal atrial fibrillation [[id number]: 5] & L-sided diplopia with potential hemineglect [...] consulted in the interim. Vikash Rodriguez Pager: [phone] Paris Dodd MD - 12/07/2019 9:55 AM [...] complications include novel onset, paroxysmal atrial fibrillation [TBV5MW9MLQN: 5] & L-sided diplopia with potential hemineglect [...] complications include novel onset, paroxysmal atrial fibrillation [BNJ2CM7KOCX: 5] & L-sided diplopia with potential hemineglect [...] complications include novel onset, paroxysmal atrial fibrillation [ILN7UW9SWJV: 5] & L-sided diplopia with potential hemineglect [...] today; additional complications include paroxysmal atrial fibrillation [CIR5VM9DCER: 4] c/b possible cardioembolic stroke, ICH from [...] length from neck/greatest diameter to back wall: MALIAN 91, CAU 13: 19 mm CORTES 1, [...] a non-culprit artery. S/P DESx3 in the icpqnpmf-xn-dszwal RCA. Aspiration thrombectomy performed, and integrellin bolus [...] complications include novel onset, paroxysmal atrial fibrillation [KFH2IA6PGDF: 5] & L-sided diplopia with potential hemineglect [...] R occipital cardioembolic stroke #Paroxysmal Afib with QU8CNNGL9Z score of 5 #New segmental bilateral PEs [...] Glasgow MD PGY1, Internal Medicine Cardiology S2, #4359 Associated attestation - Paris Dodd MD - 12/05/2019 2:59 PM EDT I was the assigned attending environmental lawyer for this clinical encounter. For the purposes [...] 12/04/2019 10:36 AM EDT Office of Care Management(OCM)/Central Office Operator Supervisor(CM)/Discharge Planning Service: Cardiology S2 team CM Bernie Alexander,RN,BSN,MA,ACM pgr [phone] Reviewed record and in Cardiology Rounds with MD team,CMs, door patcher, SHIPYARD PAINTING SUPERVISOR. Pt is anticipated ready for d/c later [...] AD to his PCP and to any [facility] appt for each to have on file. [...] complications include novel onset, paroxysmal atrial fibrillation [VYM8QZ1DRVF: 4] & L-sided diplopia with potential hemineglect [...] a non-culprit artery. S/P DESx3 in the xmigjcjm-fn-yqowkx RCA. Aspiration thrombectomy performed, and integrellin bolus [...] complications include novel onset, paroxysmal atrial fibrillation [EKK9GB8ERCL: 5] & L-sided diplopia with potential hemineglect [...] R occipital cardioembolic stroke #Paroxysmal Afib with AB3UEJJD8K score of 5 - No anticoagulation for [...] Glasgow MD PGY1, Internal Medicine Cardiology S2, #7540 I have seen the patient and reviewed [...] in my clinic. Gretchen Yoon MD Pager [phone] Derian Pascual RN - 12/03/2019 9:29 AM [...] Discharge: None Electronically signed: Derian Pascual RN, Central Office Operator Supervisor Pgr: [phone] 12/03/2019 9:29 AM Gretchen [...] complications include novel onset, paroxysmal atrial fibrillation [CEZ6GR5QBRH: 4] & L-sided diplopia with potential hemineglect [...] a non-culprit artery. S/P DESx3 in the uvdkhuzg-nh-rsrhfu RCA. Aspiration thrombectomy performed, and integrellin bolus [...] complications include novel onset, paroxysmal atrial fibrillation [WRL0CV7YWOR: 5] & L-sided diplopia with potential hemineglect [...] [facility] and [facility] with his PCP. Patient voiced strong will to quit smoking now, understood that we have resources available for help. Plan [P]: --Neurologic-- # Concern for Left-Sided Diplopia, r/o Hemineglect # Concern for CVA, last-known well 11/29/19 - MRI showed possible cardioembolic stroke #Afib with KG1CTHEU8I score of 5 - Stroke Team Consulted; [...] Anticoagulation/Arrhythmia # Novel Onset, Paroxsymal Atrial Fibrillation [[id number]: 5] - Hold off anticoagulation for at [...] w straight cath prn # Nutrition - [facility] Diet, 2g Na. -- Hematology/Oncology-- # Mild [...] them as documented. Gretchen Yoon MD Pager [phone] Raul Hein RN - 12/03/2019 5:55 AM [...] Negative mcL Appearance UA Clear Clear Spec [place] UA 1.026 1.006 - 1.030 Color UA [...] PGY3 Neurology Resident 12/01/2019 Vascular Neurology Pager [phone] Neurology Attending Attestation I evaluated the patient [...] documented. Deepthi Roman MD Vascular Neurology Standard [facility] Swallow Screen: This screen is to be [...] diet as medical provider deems appropriate. Consider DENTAL ASSISTING INSTRUCTOR consult for full evaluation and diet recommendations. ??? If NO to any of the responses, stop immediately, keep patient NPO and notify physician. Gretchen Yoon MD - 12/02/2019 9:10 AM EDT Inpatient Cardiology Progress Note Patient Name: Angel Luis Salnias Date of Admission: 11/29/2019 ( Hospital Day [...] complications include novel onset, paroxysmal atrial fibrillation [WGM0LA1IHZA: 4] & L-sided diplopia with potential hemineglect [...] a non-culprit artery. S/P DESx3 in the vbwezhbf-gj-qxfsve RCA. Aspiration thrombectomy performed, and integrellin bolus [...] complications include novel onset, paroxysmal atrial fibrillation [GET2KF9QEOB: 5] & L-sided diplopia with potential hemineglect [...] Anticoagulation/Arrhythmia # Novel Onset, Paroxsymal Atrial Fibrillation [NAN4LB9RVIJ: 5] - Hold off anticoagulation - pending [...] tamsulosin d/t low BP. # Nutrition - [facility] Diet -- Hematology/Oncology-- # Mild Thrombocytopenia, unclear [...] Glasgow MD PGY1, Internal Medicine Cardiology S2, #4379 I have seen the patient and reviewed [...] the ICU team. Gretchen Yoon MD Pager [phone] Natalia Claros APRN - 12/02/2019 8:38 AM [...] - We are signing off. Please page [phone] with any questions or concerns. For questions please call NSGY pager [phone] Natalia Claros APRN 12/02/2019 8:38 AM Clinical Documentation Improvement: Active Hospital Problems Diagnosis ??? Acute ST elevation myocardial infarction (STEMI) of inferior wall ??? Intracranial hemorrhage ??? Hyperlipidemia ??? Tobacco abuse ??? Claudication from peripheral vascular disease, left Resolved Hospital Problems No resolved problems to display. Tello Hsu, COOK MANAGER - 12/02/2019 2:06 AM EDT 12/01/192009 Oxygen [...] Scan in afternoon. Upon arrival back in [facility] placed on low flow NC at [...] complications include novel onset, paroxysmal atrial fibrillation [MRG8YG4BOEV: 4] & L-sided diplopia with potential hemineglect for which CVA evaluationto be pursued. Active Problems/Subjective: - 11/28: admitted for inferior STEMI, RV failure requiring pressor - got lytics, aspirin and plavix load, heparin gtt, and eptifibatide. 3 MACARIO stents to RCA. Merrill cath - low wedge & CVP so [...] a non-culprit artery. S/P DESx3 in the zrgzskab-os-bfrzhz RCA. Aspiration thrombectomy performed, and integrellin bolus [...] complications include novel onset, paroxysmal atrial fibrillation [VXI3FY7XXIO: 4] & L-sided diplopia with potential hemineglect [...] Anticoagulation/Arrhythmia # Novel Onset, Paroxsymal Atrial Fibrillation [[id number]: 4] - Obtain: TTE - Pending CVA [...] tamsulosin d/t low BP. # Nutrition - [facility] Diet -- Hematology/Oncology-- # Mild Thrombocytopenia, unclear [...] MD, PGY1 PGY3, Internal Medicine Cardiology S2, #2388 I have seen the patient and reviewed [...] down the line. Gretchen Yoon MD Pager [phone] ?? Gretchen Yoon MD Pager [phone] Natalia Claros APRN - 12/01/2019 1:33 AM [...] per primary team For questions please call [employer] pager [phone] Natalia Claros APRN 12/01/2019 7:42 AM Clinical Documentation Improvement: Active Hospital Problems Diagnosis ??? Acute ST elevation myocardial infarction (STEMI) of inferior wall ??? Intracranial hemorrhage ??? Hyperlipidemia ??? Tobacco abuse ??? Claudication from peripheral vascular disease, left Resolved Hospital Problems No resolved problems to display. Tello Hsu, COOK MANAGER - 11/30/2019 8:44 PM EDT Respiratory [...] EDT Narrative:Visited in response to request for Double Bass Player services. Pt was awake, alert, oriented and in bed. Assessment:Patient coping positively with stresses of illness/hospitalization at this time. Pt says that he is hoping to get better and pt is living with and has children and grandchildren. Pt haspurpose of life and has reason to get getter and to be with family. Outcome: Provided emotional and spiritual support and encouraging presence. Double Bass Player services accepted.Conversation to build trusting relationship.Provided pastoral [...] complications include novel onset, paroxysmal atrial fibrillation [ZHD7DJ5RAFG: 4] & L-sided diplopia with potential hemineglect for which CVA evaluationto be pursued. Active Problems/Subjective: - Overnight, CVP < 12 for which a total of 1 L IVF provided - Today AM, patient complains of subjectively reported, left-sided hemineglect with floaters and diplopia [see: exam]. - Otherwise, c/o neck pain 2/2 R IJ Merrill & L radial A line. Otherwise, denies [...] a non-culprit artery. S/P DESx3 in the yklgvohd-wr-ypqtto RCA. Aspiration thrombectomy performed, and integrellin bolus [...] complications include novel onset, paroxysmal atrial fibrillation [[id number]: 4] & L-sided diplopia with potential hemineglect [...] Anticoagulation/Arrhythmia # Novel Onset, Paroxsymal Atrial Fibrillation [[id number]: 4] - Obtain: TTE to confirm rhythm [...] tamsulosin d/t low BP. # Nutrition - [facility] Diet -- Hematology/Oncology-- # Mild Thrombocytopenia, unclear [...] MD, PGY3 PGY3, Internal Medicine Cardiology S2, #[id number] I have seen the patient and reviewed [...] down the line. Gretchen Yoon MD Pager [phone] Paola Capps RN - 11/30/2019 6:57 AM EDT PT still requiring 4 of levo, several attempts to titrate down (maps in 70;s) But maps would drop toless than 65. Pt very restless in bed Raising and lowering head denies pain . Integrillin stopped [id number] when bottle complete , urine tea colored [...] PCP: France Lam MD PCP phone #: [phone] Straight Pin Making Machine Operator: None ID/Chief Complaint: Chest pain History of Present Illness: 74 y.o male with no significant PMH, was in usual state of health until yesterday when he woke up at 4am this morning with severe crushing substernal chest pain 04/10. He took two full strength aspirin and came to [facility] ED. At there was found [...] and Compazine. He was transferred directly to [facility] via [facility] for further management. Patient had an emergent PCI with 3 MACARIO stents placed to his RCA, with mild disease of LCX (report pending) at [facility]. He was found to be persistently hypotensive requiring Levo up to 10mcg/min. He was transferred to [facility] after the cath procedure. Bedside RHC showed CI 2.12, PAWP 11, PAP 38/15 indicating hypovolemic state. He received 1L bolus of NS with improvement of his blood pressure to 124/61. History of PAD, HLD - had side reactions to statins - so taking niacin and red rye grain. Chronic active smoker with more than 65 pack years. Family history of ND in father and two uncles. He's takingbaby [...] ??? Penicillins Pt doesn't remember reaction ??? Fyfpvxm-Tzg-Skw Reductase Inhibitors Stiff neck, upset stomach, back pain Family History: Mother: Father: ND 2 Uncles with MIs Social History: Tobacco: Current active smoker 1 ppd. 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 Vitals: Last value Range last [...] in the last 7068 hours. Invalid input(s): [id number] Heme: No results for input(s): LDH, HAPTOGLOBIN, [...] OSH prior to transfer and PCI at [facility]. Massive inferior STEMI with troponin level 20, currently in CVCC due to pressor requirement. BedsideRHC demonstrated evidence of elevated right sided heart failure, but his wedge was wnl. He received 1L bolus with improvement of his blood pressure and reduction of his pressor requirement. PLAN: Admit to Cardiology, S2 Team Pager # [phone] #Inferior STEMI, LEYLA [phone] - Resolving EKG [...] inferior STEMI s/p lytic therapy. Transferred to [facility] and underwent successful PCI of the RCA with MACARIO x3. Gretchen Yoon MD Pager [phone] documented in this encounter Procedure Notes Juventino [...] to the planned procedure. 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 Location of Procedure: [facility] Risks and Benefits: The risks and [...] to the planned procedure. 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 [place]. Insertion Side: right. Insertion Site: internal jugular. Catheter Details: Number of Lumens: 1 Catheter Type: heparin-coated The line was placed over a guidewire. Confirmation of Venous Placement: Venous placement was confirmed by transducing the pressure. Introducer Insertion Attempts: 1 Comments: Floating the Merrill-Mo Catheter Attempts: 1 Comments: Sterile Dressing: Biopatch [...] better pt back in SR. Please page [phone] for any more cares or concerns Plan [...] complications include novel onset, paroxysmal atrial fibrillation [[id number]: 5]& L-sided diplopia with potential hemineglect for [...] Total Evaluation Minutes, Occupational Therapy: 10 Pager: [phone] FRANCINE Nuñez Occupational Therapy Rehabilitation Department Plan [...] complications include novel onset, paroxysmal atrial fibrillation [[id number]: 5] & L-sided diplopia with potential hemineglect [...] hand rails). Baseline Mobility: Independent. Drives. Shares spinner box with his , however her mobility is [...] plan as stated. Time IN / OUT: 8093-8345 Total Evaluation Minutes, Physical Therapy: 15(gtx1) Barbara Baldwin, PT Pager: [phone] Physical Therapy Inpatient Rehabilitation Department Plan of [...] he receives all he needs through the [facility]. Consult refused. Romain Tran, MSN, RN-, [facility] Tobacco Off Premise Service Representative [facility] Pager #[phone] Plan of Care - Romain Oglesby OT [...] complications include novel onset, paroxysmal atrial fibrillation [[id number]: 5] & L-sided diplopia with potential hemineglect [...] and measurable assessment of functional outcome. Pager: [phone] ROMAIN OGLESBY OT 12/03/2019 Occupational Therapy Rehabilitation [...] in an outpatient cardiac rehabilitation program at [facility] was discussed. Patient agrees to a referral to this program. His has been a cardiac rehab patient at [facility] and he is familiar with the [...] complications include novel onset, paroxysmal atrial fibrillation [[id number]: 5] & L-sided diplopia with potential hemineglect [...] hand rails). Baseline Mobility: Independent. Drives. Shares spinner box with his , however her mobility is [...] in this evaluation. Time IN / OUT: 6185-0548 Total Evaluation Minutes, Physical Therapy: 25(eval, gtx1) Barbara Baldwin, PT Pager: [phone] Physical Therapy Inpatient Rehabilitation Department Consult Note [...] Please contact JOHANNA NOBLES RN on pager [phone] or the wound care team at [phone] or pager [phone] skin and wound care concerns or questions. [...] Salinas would be surrogate decision maker per [place] surrogate decision making law. Any patient receiving carspousee at [facility] must abide by [place] law. The hierarchy for surrogate decisionmaking is: [...] (i) The agent with financial power of securities attorney or a conservator appointed in accordance [...] Insurance: N/A Prescription Coverage: Yes Preferred Pharmacy: [place] Other: No Primary Care Provider: France Lam MD [phone] Patient/Caregiver Goals of Treatment: Return home Potential Needs for Transition of Care: Rehab/SNF: Based on discussions with the multi-disciplinary healthcare team, the patient would benefit from SNF level of care at discharge. ?? I have met with the patient to discuss discharge planning needs. I have provided the [facility], Officeof Care Management letter from the [employer] pertaining to rehab referrals. I have also provided a letter describing our affiliations within the [facility] and educated them about their [...] have requested referrals to: ?? [facility] [address] [place] [address] ?? [address] , [place] [address] Note routed to [employer] who will communicate referrals to facilities and provide any required information. Home Health: If therapies recommend home w/ VNA, the patient has been provided a list of Home Health Agencies/DME vendors which serve their preferred geographic area. A letter describing our affiliations was reviewed with them and they were educated about their right to choose where referrals are placed. Patient requests referral to [facility] [employer]. PHONE: [phone] FAX: [phone] Referral routed to the [employer] for matching with agency/vendor and to provide [...] Insured w/ Medicare. Gets medications filled at [facility] in [place], [place]. Son to transport at discharge Plan: Discharge dispo depending on patient's physical recovery; SNF vs home w/ VNA. A member of the Care Management team will continue to monitor progress, follow for continuity of care and assist with transition of care planning. Derian Pascual RN Pager: [phone] Plan of Care - Estefani Encarnacion RN [...] ??? Penicillins Pt doesn't remember reaction ??? Tyfdpzs-Nlc-Wrh Reductase Inhibitors Stiff neck, upset stomach, back [...] noncontrast head CT and CT of the [place] at 1600 hrs. We will [...] per neurology recommendations. Consult Note - Barbara Neslon I - 11/30/2019 11:18 AM EDT Neurology [...] vision concerning for stroke. Patient presented to [facility] in transfer for a STEMI after presenting [...] ??? Penicillins Pt doesn't remember reaction ??? Yahvmbv-Pnn-Yha Reductase Inhibitors Stiff neck, upset stomach, back [...] file Gets together: Not on file Attends denominational service: Not on file Active member of [...] L Elbow flexion 5/5 R, 5/5 L Product Marketing Manager LE: 5/5 R, 5/5 L Hip flexion [...] PGY3 Neurology Resident 11/30/2019 Vascular Neurology Pager [phone] Standard [facility] Swallow Screen: This screen is to be [...] diet as medical provider deems appropriate. Consider DENTAL ASSISTING INSTRUCTOR consult for full evaluation and diet recommendations. [...] admitted s/p thrombolysis and Cath-Stent to [facility] who developed R sided visual symptoms. CT [...] hours. Evan Mejia MD Department of Neurology [facility] Brief Op Note - Gretchen Yoon MD - 11/29/2019 8:38 PM EDT Brief Operative Note Patient Name: Angel Luis Salinas : [id number] MR#: [id number] Case Date: 11/29/2019 Surgeon: Surgeon(s) and Role: * Gretchen Yoon MD - Primary * Aidan Ward MD - Fellow Preoperative diagnosis: Inferior STEMI Postoperative diagnosis: Inferior STEMI Procedure(s) (LRB): CARDIAC CATHETERIZATION (N/A) Findings: Discrete 90% stenosis in the prox-to-mid RCA. Severe diffuse disease in the distal vessel. Discrete LCX stenosis in a non-culprit artery. S/P DESx3 in the hvjnsghw-dd-jmtvkq RCA. Aspiration thrombectomy performed, and integrellin bolus [...] are i n the results section. CT [facility] [facility] [place] [facility] STAT 11/30/2019 4:36 Res [...] athologist Signature Potassium 3.9 3.5 - 5.0 [facility] mmol/L [facility] Comment: Please note: [...] Organization Address City/State/[place] [address] (ABNORMAL) Hemogram (12/08/2019 12:39 PM EDT) Analysis Performed At Patho logist Time Signature WBC 9.9 (H) 4.0 - 9.5 [facility] LABORATORY RBC 4.51 (L) 4.58 - [place] OLIVIA 5.54 [facility] x10(6)/[facility] LABORATORY Hemoglobin 13.0 (L) 13.7 - [place] 16.5 gm/dL [facility] Hematocrit 40.5 40.5 - [place] 48.5 % [facility] MCV 89.8 82.9 - [facility] OLIVIA 93.1 [facility] LABORATORY MCH 28.8 27.5 - [place] 32.1 pg [facility] MCHC 32.1 32.0 - [place] 35.7 gm/dL [facility] Platelets 214 145 - 357 [facility] x10(3)/[facility] LABORATORY RDWSD 49.2 (H) 36.0 - [place] OLIV[place] 45.0 [facility] LABORATORY RDWCV 15.1 (H) 11.4 - [facility] 13.8 % [facility] MPV 12.1 7.6 - 12.9 [facility] OLIVIA [facility] LABORATORY nRBC % Auto 0.0 % [facility] LABORATORY nRBC Abs Auto 0.000 0.000 - [facility] 0.000 [facility] x10(3)/[facility] LABORATORY Specimen Anatomical Collection Method Collection Time Receive d Time (Source) Location / / Volume Laterality Blood specimen 12/08/2019 12:39 0 (specimen) PM EDT 12:47 PM EDT Resulting Agency Comment Spec In Lab Gretchen Yoon MD HEMATOLOGY ORDERABLES Performing Organization Address City/State/ZIP Code Phon e Number [address] Hepatic Function Panel (12/08/2019 6:28 AM EDT) athologist Signature Total Protein 6.6 6.1 - 8.0 [place] gm/dL [facility] Albumin 3.2 3.2 - 5.2 [place] gm/dL [facility] AST 18 0 - 39 [place] unit/L [facility] ALT 13 0 - 55 [facility] OLIVIA unit/L [facility] Alk Phos 64 40 - 130 [facility] OLIVIA unit/L [facility] Total 0.4 0.2 - 1.3 [place] Bilirubin mg/dL [facility] Bili, Direct 0.1 0.0 - 0.3 [facility] OLIVIA mg/dL [facility] Specimen Anatomical Collection Method Collection Time Receive d Time (Source) Location / / Volume Laterality Blood specimen Venous Draw / 12/08/2019 6:28 AM 2019 6:36 (specimen) Unknown EDT AM EDT Resulting Agency Comment Spec In Lab Riki Stevens MD CHEMISTRY ORDERABLES Performing Organization Address City/[facility]/ZIP Code Phon e Number [address] (ABNORMAL) TSH (12/08/2019 6:28 AM EDT) athologist Signature TSH 5.27 (H) 0.27 - 4.20 [facility] mcIU/mL [facility] Specimen Anatomical Collection Method Collection Time Receive d Time (Source) Location / / Volume Laterality Blood specimen Venous Draw / 12/08/2019 6:28 AM 2019 6:36 (specimen) Unknown EDT AM EDT Resulting Agency Comment Spec In Lab Darrell Glasgow MD CHEMISTRY ORDERABLES Performing Organization Address City/[facility]/ZIP Code Phon e Number [address] Potassium (12/08/2019 6:28 AM EDT) P athologist Signature Potassium 4.2 3.5 - 5.0 [facility] mmol/L [facility] Comment: Please note: [...] Organization Address City/State/[place] [address] (ABNORMAL) Differential, Automated (12/08/2019 12:43 AM EDT) Patholo gist Method Time Signature Neutrophils % 60.7 % [facility] Neutr Abs (ANC) 6.81 (H) 1.70 - [facility] 6.10 [facility] x10(3)/[facility] LABORATORY Lymphocytes % 23.4 % [facility] Lymphocytes Abs 2.6 0.9 - 3.2 [facility] x10(3)/[facility] LABORATORY Monocytes % 10.0 % [facility] Monocyte Abs 1.1 (H) 0.3 - 0.9 [facility] x10(3)/[facility] LABORATORY Eosinophils % 3.7 % [facility] Eosinophils Abs 0.4 0.0 - 0.4 [facility] x10(3)/[facility] LABORATORY Basophils % 1.2 % [facility] Basophils Abs 0.1 0.0 - 0.1 [facility] x10(3)/[facility] LABORATORY Immature Gran % 1.00 % [facility] [...] Gran Abs 0.11 (H) 0.00 - 0.04 x10(3)/[facility] LABORATORY Specimen Anatomical Collection Method Collection Time Receive d Time (Source) Location / / Volume Laterality Blood specimen 12/08/2019 12:43 0 (specimen) AM EDT 12:52 AM EDT Resulting Agency Comment Spec In Lab Riki Stevens MD HEMATOLOGY ORDERABLES Performing Organization Address City/State/[place] [address] (ABNORMAL) Hemogram (12/08/2019 12:43 AM EDT) Analysis Performed At Patho logist Time Signature WBC 11.2 (H) 4.0 - 9.5 [facility] x10(3)/[facility] LABORATORY RBC 4.46 (L) 4.58 - [facility] OLIVIA 5.54 [facility] x10(6)/[facility] LABORATORY Hemoglobin 13.1 (L) 13.7 - [facility] 16.5 gm/dL [facility] Hematocrit 40.5 40.5 - [facility] OLIVIA 48.5 % [facility] MCV 90.8 82.9 - [facility] 93.1 [facility] LABORATORY MCH 29.4 27.5 - [facility] OLIVIA 32.1 pg [facility] MCHC 32.3 32.0 - [facility] OLIVIA 35.7 gm/dL [facility] Platelets 215 145 - 357 [facility] x10(3)/[facility] LABORATORY RDWSD 49.8 (H) 36.0 - [facility] OLIVIA 45.0 [facility] LABORATORY RDWCV 15.2 (H) 11.4 - [facility] OLIVIA 13.8 % [facility] MPV 12.3 7.6 - 12.9 [facility] LABORATORY nRBC % Auto 0.0 % [facility] nRBC Abs Auto 0.000 0.000 - [facility] [place] 0.000 [facility] x10(3)/[facility] LABORATORY Specimen Anatomical Collection Method Collection Time Receive d Time (Source) Location / / Volume Laterality Blood specimen 12/08/2019 12:43 0 (specimen) AM EDT 12:52 AM EDT Resulting Agency Comment Spec In Lab Riki Stevens MD HEMATOLOGY ORDERABLES Performing Organization Address City/State/ZIP Code Phon e Number [address] Magnesium (12/08/2019 12:43 AM EDT) athologist Signature Magnesium 1.01 0.69 - 1.07 [facility] mmol/L [facility] Specimen Anatomical Collection Method Collection Time Receive d Time (Source) Location / / Volume Laterality Blood specimen 12/08/2019 12:43 0 (specimen) AM EDT 12:52 AM EDT Resulting Agency Comment Spec In Lab Gretchen Yoon MD CHEMISTRY ORDERABLES Performing Organization Address City/State/[place] [address] (ABNORMAL) BMP w/fasting Glucose (12/08/2019 12:43 AM EDT) P athologist Signature Glucose 106 (H) 65 - 99 [facility] Fasting mg/dL [facility] Comment: ?Fasting* [...] of Diabetes Mellitus, Position Statement from the [place] [employer]. ??Diabete s Care, Volume 33, Supplement 1, Jul 2009 BUN 14 10 - 20 mg/dL [facility] Creatinine 1.16 0.80 - 1.50 mg/dL [facility]OR[facility]ORY Sodium 134 (L) 135 - 145 mmol/L [facility] Potassium 4.0 3.5 - 5.0 mmol/L [facility] Comment: Please note: ??Patients [...] Gap 16 (H) 5 - 15 mmol/L [facility] Calcium 8.9 8.5 - 10.5 mg/dL [facility] Estimated GFR 62 >=60 mL/min/1.73 m?? [facility] Comment: The eGFR was calculated using the CKD-EP I equation. As with all creatinine based estimates of kidney function, eGFR values calculated with the CKD-EPI equation are not accurate in patients wi th acute kidney failure, extremes of body mass or the acutely ill. http://[employer]/[facility]f eGFR 72 >=60 mL/min/1.73 m?? [facility] Comment: The eGFR was calculated using the CKD-EP I equation. As with all creatinine based estimates of kidney function, eGFR values calculated with the CKD-EPI equation are not accurate in patients wi th acute kidney failure, extremes of body mass or the acutely ill. http://[employer]/[facility] Specimen Anatomical Collection Method Collection Time Receive d Time (Source) Location / / Volume Laterality Blood specimen 12/08/2019 12:43 0 (specimen) AM EDT 12:52 AM EDT Resulting Agency Comment Spec In Lab Gretchen Yoon MD CHEMISTRY ORDERABLES Performing Organization Address City/State/[place] [address] Heparin (unfractionated) Level (12/08/2019 12:43 AM EDT) athologist Signature Heparin UFH 0.60 IU/mL [facility] Comment: Guidelines for therapeutic unfractionate d [...] Organization Address City/State/[place] [address] Potassium (12/07/2019 8:39 PM EDT) athologist Signature Potassium 4.1 3.5 - 5.0 [facility] mmol/L [facility] Comment: Please note: [...] Lagos MD CHEMISTRY ORDERABLES Performing Organization Address City/[facility]/[place] [address] Potassium (12/07/2019 4:02 PM [...] MD CHEMISTRY ORDERABLES Performing Organization Address City/[facility]/[place] [address] (ABNORMAL) Hemogram (12/07/2019 4:02 PM EDT) Analysis Performed At Patho logist Time Signature WBC 17.4 (H) 4.0 - 9.5 [place] OLIVIA x10(3)/[facility] LABORATORY RBC 4.58 4.58 - [place] OLIVIA 5.54 [facility] x10(6)/[facility] LABORATORY Hemoglobin 13.5 (L) 13.7 - [place] OLIVIA 16.5 gm/dL [facility] Hematocrit 40.8 40.5 - [place] OLIVIA 48.5 % [facility] MCV 89.1 82.9 - [place] OLIVIA 93.1 [facility] LABORATORY MCH 29.5 27.5 - [place] OLIVIA 32.1 pg [facility] MCHC 33.1 32.0 - [place] OLIVIA 35.7 gm/dL [facility] Platelets 238 145 - 357 [place] OLIV[place] x10(3)/[facility] LABORATORY RDWSD 48.8 (H) 36.0 - [place] OLIVIA 45.0 [facility] LABORATORY RDWCV 15.0 (H) 11.4 - [facility] 13.8 % [facility] MPV 12.2 7.6 - 12.9 [facility] LABORATORY nRBC % Auto 0.0 % [facility]ORY nRBC Abs Auto 0.000 0.000 - [place] MARSHOLIVIA 0.000 [facility] x10(3)/[facility] LABORATORY Specimen Anatomical Collection Method Collection Time Receive d Time (Source) Location / / Volume Laterality Blood specimen 12/07/2019 4:02 PM 020 4:08 (specimen) EDT PM EDT Resulting Agency Comment Spec In Lab Gretchen Yoon MD HEMATOLOGY ORDERABLES Performing Organization Address City/[facility] [place] [address] EKG 12 Lead (12/07/2019 [...] (Bezet) Calculated P -12 degrees MUSE SYSTEM [place] Calculated R 10 degrees [facility]USE SYSTEM [place] Calculated T -138 degrees MUSE SYSTEM [place] INTERPRETATION Supraventricular tachycardia MUSE SYSTEM Low voltage [...] athologist Signature Potassium 4.2 3.5 - 5.0 [facility] mmol/L [facility] Comment: Please note: [...] Lagos MD CHEMISTRY ORDERABLES Performing Organization Address City/[facility] [place] [address] Heparin (unfractionated) Level (12/07/2019 11:43 AM EDT) athologist Signature Heparin UFH 0.59 IU/mL [facility] LABORATORY Comment: Guidelines for therapeutic [...] Lagos MD HEMATOLOGY ORDERABLES Performing Organization Address [facility]/[place] [address] Heparin (unfractionated) Level (12/07/2019 5:20 AM EDT) P athologist Signature Heparin UFH 0.53 IU/mL [facility] LABORATORY Comment: Guidelines for therapeutic [...] Organization Address City/State/[place] [address] (ABNORMAL) Differential, Automated (12/07/2019 5:20 AM EDT) Patholo gist Method Time Signature Neutrophils % 62.4 % [facility] Neutr Abs (ANC) 5.46 1.70 - [facility] 6.10 [facility] x10(3)/[facility] LABORATORY Lymphocytes % 20.3 % [facility] LABORATORY Lymphocytes Abs 1.8 0.9 - 3.2 [facility] x10(3)/[facility] LABORATORY Monocytes % 11.0 % [facility] LABORATORY Monocyte Abs 1.0 (H) 0.3 - 0.9 [facility] x10(3)/[facility] LABORATORY Eosinophils % 4.5 % [facility] LABORATORY Eosinophils Abs 0.4 0.0 - 0.4 [facility] x10(3)/[facility] LABORATORY Basophils % 0.9 % [facility] LABORATORY Basophils Abs 0.1 0.0 - 0.1 [facility] x10(3)/[facility] LABORATORY Immature Gran % 0.90 % [facility] [...] Gran Abs 0.08 (H) 0.00 - 0.04 x10(3)/[facility] LABORATORY Specimen Anatomical Collection Method Collection Time Receive d Time (Source) Location / / Volume Laterality Blood specimen 12/07/2019 5:20 AM 020 5:37 (specimen) EDT AM EDT Resulting Agency Comment Spec In Lab Riki Stevens MD HEMATOLOGY ORDERABLES Performing Organization Address City/State/ZIP Code Phon e Number [place] [id number] HOSPITAL LABORATORY Drive (ABNORMAL) Hemogram (12/07/2019 5:20 AM EDT) Analysis Performed At Patho logist Time Signature WBC 8.7 4.0 - 9.5 [facility] x10(3)/[facility] LABORATORY RBC 4.20 (L) 4.58 - [facility] 5.54 [facility] x10(6)/[facility] LABORATORY Hemoglobin 12.3 (L) 13.7 - [facility] 16.5 gm/dL [facility] LABORATORY Hematocrit 37.4 (L) 40.5 - [facility] 48.5 % [facility] LABORATORY MCV 89.0 82.9 - [facility] 93.1 fL [facility] LABORATORY MCH 29.3 27.5 - [facility] 32.1 pg [facility] LABORATORY MCHC 32.9 32.0 - MEL[facility] MONAE 35.7 gm/dL [facility] LABORATORY Platelets 181 145 - 357 [facility]AE x10(3)/[facility] LABORATORY RDWSD 47.7 (H) 36.0 - M[place] MONAE 45.0 [facility] LABORATORY RDWCV 14.8 (H) 11.4 - [facility] 13.8 % [facility] LABORATORY MPV 12.3 7.6 - 12.9 M[place]INA OLIVIA [facility] LABORATORY nRBC % Auto 0.0 % [facility] LABORATORY nRBC Abs Auto 0.000 0.000 - [facility] MONAE 0.000 [facility] x10(3)/[facility] LABORATORY Specimen Anatomical Collection Method Collection Time Receive d Time (Source) Location / / Volume Laterality Blood specimen 12/07/2019 5:20 AM 020 5:37 (specimen) EDT AM EDT Resulting Agency Comment Spec In Lab Riki Stevens MD HEMATOLOGY ORDERABLES Performing Organization Address City/State/ZIP Code Phon e Number [address] Magnesium (12/07/2019 5:20 AM EDT) P athologist Signature Magnesium 0.89 0.69 - 1.07 [facility] mmol/L [facility] LABORATORY Specimen Anatomical Collection Method Collection Time Receive d Time (Source) Location / / Volume Laterality Blood specimen 12/07/2019 5:20 AM 020 5:37 (specimen) EDT AM EDT Resulting Agency Comment Spec In Lab Gretchen Yoon MD CHEMISTRY ORDERABLES Performing Organization Address City/State/ZIP Code Phon e Number [address] (ABNORMAL) BMP w/fasting Glucose (12/07/2019 5:20 AM EDT) P athologist Signature Glucose 100 (H) 65 - 99 [facility]/dL [facility] LABORATORY Comment: [...] of Diabetes Mellitus, Position Statement from the [place] [employer]. ??Diabete s Care, Volume 33, Supplement 1, Jul 2009 BUN 14 10 - 20 mg/dL [facility] LABORATORY Creatinine 0.83 0.80 - 1.50 mg/dL [facility] LABORATORY Sodium 135 135 - 145 mmol/L [facility] LABORATORY Potassium 3.8 3.5 - 5.0 mmol/L [facility] LABORATORY Comment: Please note: ??Patients [...] Anion Gap 14 5 - 15 mmol/L [facility] LABORATORY Calcium 8.8 8.5 - 10.5 mg/dL [facility] LABORATORY Estimated GFR 87 >=60 mL/min/1.73 m?? [facility] LABORATORY Comment: The eGFR was calculated using the CKD-EP I equation. As with all creatinine based estimates of kidney function, eGFR values calculated with the CKD-EPI equation are not accurate in patients wi th acute kidney failure, extremes of body mass or the acutely ill. [email or web address] eGFR 101 >=60 mL/min/1.73 m?? [facility] LABORATORY Comment: The eGFR was calculated using the CKD-EP I equation. As with all creatinine based estimates of kidney function, eGFR values calculated with the CKD-EPI equation are not accurate in patients wi th acute kidney failure, extremes of body mass or the acutely ill. [email or web address] Specimen Anatomical Collection Method Collection Time Receive d Time (Source) Location / / Volume Laterality Blood specimen 12/07/2019 5:20 AM 020 5:37 (specimen) EDT AM EDT Resulting Agency Comment Spec In Lab Gretchen Yoon MD CHEMISTRY ORDERABLES Performing Organization Address City/[facility] [address] Heparin (unfractionated) Level (12/06/2019 10:14 PM EDT) athologist Signature Heparin UFH 0.29 IU/mL [facility] LABORATORY Comment: Guidelines for therapeutic [...] MD HEMATOLOGY ORDERABLES Performing Organization Address City/[facility]/[place] [address] Head wo Contrast [...] For questions regarding this report, please contact [facility] number below. ? Narrative 12/06/2019 10:06 [...] Signature WBC 10.4 (H) 4.0 - 9.5 [facility] x[facility](3[facility] LABORATORY RBC 4.32 (L) 4.58 - [facility] [place] 5.54 [facility] x10(6)/[facility] LABORATORY Hemoglobin 12.5 (L) 13.7 - [facility] 16.[facility] gm/dL [facility] LABORATORY Hematocrit 38.4 (L) 40.5 - [facility] 48.5 % [facility] LABORATORY MCV 88.9 82.9 - [facility] 93.1 [facility] LABORATORY MCH 28.9 27.5 - MELINA OLIVIA 32.1 pg [facility] LABORATORY MCHC 32.6 32.0 - [facility] 35.7 gm/dL [facility] LABORATORY Platelets 194 145 - 357 [facility] x10(3)/[facility] LABORATORY RDWSD 46.9 (H) 36.0 - [facility] 45.0 [facility] LABORATORY RDWCV 14.6 (H) 11.4 - [facility] 13.8 % [facility] LABORATORY MPV 11.9 7.6 - 12.9 [facility] LABORATORY nRBC % Auto 0.0 % [facility] LABORATORY nRBC Abs Auto 0.000 0.000 - [facility] 0.000 [facility] x10(3)/[facility] LABORATORY Specimen Anatomical Collection Method Collection Time Receive d Time (Source) Location / / Volume Laterality Blood specimen 12/06/2019 4:20 PM 020 4:31 (specimen) EDT PM EDT Resulting Agency Comment Spec In Lab Gretchen Yoon MD HEMATOLOGY ORDERABLES Performing Organization Address City/State/[place] [address] Heparin (unfractionated) Level (12/06/2019 4:20 PM EDT) P athologist Signature Heparin UFH 0.30 IU/mL [facility] LABORATORY Comment: Guidelines for therapeutic [...] Organization Address City/State/[place] [address] Heparin (unfractionated) Level (12/06/2019 10:02 AM EDT) athologist Signature Heparin UFH <0.04 IU/mL [facility] LABORATORY Comment: Guidelines for therapeutic [...] Organization Address City/State/ZIP Code Phon e Number [address] Magnesium (12/06/2019 3:36 AM EDT) P athologist Signature Magnesium 0.86 0.69 - 1.07 [facility] mmol/L [facility] LABORATORY Specimen Anatomical Collection Method Collection Time Receive d Time (Source) Location / / Volume Laterality Blood specimen 12/06/2019 3:36 AM 020 3:45 (specimen) EDT AM EDT Resulting Agency Comment Spec In Lab Gretchen Yoon MD CHEMISTRY ORDERABLES Performing Organization Address City/State/[place] [address] (ABNORMAL) BMP w/fasting Glucose (12/06/2019 3:36 AM EDT) P athologist Signature Glucose 103 (H) 65 - 99 [facility] Fasting mg/dL [facility] LABORATORY Comment: ?Fasting* [...] of Diabetes Mellitus, Position Statement from the [place] [employer]. ??Diabete s Care, Volume 33, Supplement 1, Jul 2009 BUN 20 10 - 20 mg/dL [facility] LABORATORY Creatinine 0.88 0.80 - 1.50 mg/dL [facility] LABORATORY Sodium 136 135 - 145 mmol/L [facility] LABORATORY Potassium 4.0 3.5 - 5.0 mmol/L [facility] LABORATORY Comment: Please note: ??Patients [...] Anion Gap 14 5 - 15 mmol/L [facility] LABORATORY Calcium 8.7 8.5 - 10.5 mg/dL [facility] LABORATORY Estimated GFR 85 >=60 mL/min/1.73 m?? [facility] LABORATORY Comment: The eGFR was calculated using the CKD-EP I equation. As with all creatinine based estimates of kidney function, eGFR values calculated with the CKD-EPI equation are not accurate in patients wi th acute kidney failure, extremes of body mass or the acutely ill. [email or web address]nkf eGFR 99 >=60 mL/min/1.73 m?? [facility] LABORATORY Comment: The eGFR was calculated using the CKD-EP I equation. As with all creatinine based estimates of kidney function, eGFR values calculated with the CKD-EPI equation are not accurate in patients wi th acute kidney failure, extremes of body mass or the acutely ill. http://[email or web address]AH[facility]QUAHnkf Specimen Anatomical Collection Method Collection Time Receive d Time (Source) Location / / Volume Laterality Blood specimen 12/06/2019 3:36 AM 020 3:45 (specimen) EDT AM EDT Resulting Agency Comment Spec In Lab Gretchen Yoon MD CHEMISTRY ORDERABLES Performing Organization Address City/State/[place] [address] (ABNORMAL) Hemogram (12/06/2019 3:36 AM EDT) Analysis Performed At Patho logist Time Signature WBC 9.2 4.0 - 9.5 [facility] x[facility](3[facility] LABORATORY RBC 3.99 (L) 4.58 - M[facility]IA 5.54 [facility] x10(6)/[facility] LABORATORY Hemoglobin 11.9 (L) 13.7 - M[facility] OLIVIA 16.5 gm/dL [facility] LABORATORY Hematocrit 35.5 (L) 40.5 - [facility] 48.5 % [facility] LABORATORY MCV 89.0 82.9 - [facility] 93.1 [facility] LABORATORY MCH 29.8 27.5 - MELINA OLIVIA 32.1 pg [facility] LABORATORY MCHC 33.5 32.0 - [facility] OLIVIA 35.7 gm/dL [facility] LABORATORY Platelets 164 145 - 357 [facility] x10(3)/[facility] LABORATORY RDWSD 47.6 (H) 36.0 - M[facility] OLIVIA 45.0 [facility] LABORATORY RDWCV 14.7 (H) 11.4 - [facility] [place] 13.8 % [facility] LABORATORY MPV 11.9 7.6 - 12.9 [facility] LABORATORY nRBC % Auto 0.0 % [facility] LABORATORY nRBC Abs Auto 0.000 0.000 - [facility]IVIA 0.000 [facility] x10(3)/[facility] LABORATORY Specimen Anatomical Collection Method Collection Time Receive d Time (Source) Location / / Volume Laterality Blood specimen 12/06/2019 3:36 AM 020 3:45 (specimen) EDT AM EDT Resulting Agency Comment Spec In Lab Gretchen Yoon MD HEMATOLOGY ORDERABLES Performing Organization Address City/[facility]/[place] [address] (ABNORMAL) Differential, Automated (12/05/2019 10:52 PM EDT) [facility] Time Signature Neutrophils % 61.9 % [facility] LABORATORY Neutr Abs (ANC) 6.02 1.70 - [facility] 6.10 [facility] x10(3)/[facility] LABORATORY Lymphocytes % 22.4 % [facility] LABORATORY Lymphocytes Abs 2.2 0.9 - 3.2 [facility] x10(3)/[facility] LABORATORY Monocytes % 10.4 % [facility] LABORATORY Monocyte Abs 1.0 (H) 0.3 - 0.9 [facility] x10(3)/[facility] LABORATORY Eosinophils % 4.1 % [facility] LABORATORY Eosinophils Abs 0.4 0.0 - 0.4 [facility] x10(3)/[facility] LABORATORY Basophils % 0.7 % [facility] LABORATORY Basophils Abs 0.1 0.0 - 0.1 [facility] x10(3)/[facility] LABORATORY Immature Gran % 0.50 % [facility] [...] Gran Abs 0.05 (H) 0.00 - 0.04 x10(3)/[facility] LABORATORY Specimen Anatomical Collection Method Collection Time Receive d Time (Source) Location / / Volume Laterality Blood specimen 12/05/2019 10:52 0 (specimen) PM EDT 10:59 PM EDT Resulting Agency Comment Spec In Lab Mandi Barrera MD HEMATOLOGY ORDERABLES Performing Organization Address City/State/[place] [address] (ABNORMAL) Hemogram (12/05/2019 10:52 PM EDT) Analysis Performed At [facility] logist Time Signature WBC 9.7 (H) 4.0 - 9.5 [facility] x10(3)/[facility] LABORATORY RBC 4.07 (L) 4.58 - [facility]ITT[place] 5.54 [facility] x10(6)/[facility] LABORATORY Hemoglobin 11.9 (L) 13.7 - [facility] [place] 16.5 gm/dL [facility] LABORATORY Hematocrit 36.4 (L) 40.5 - [facility] [place] 48.5 % [facility] LABORATORY MCV 89.4 82.9 - [facility] 93.1 [facility] LABORATORY MCH 29.2 27.5 - MELINA [place] 32.1 pg [facility] LABORATORY MCHC 32.7 32.0 - M[facility] [place]OCK 35.7 gm/dL [facility] LABORATORY Platelets 167 145 - 357 [facility] x10(3)/[facility] LABORATORY RDWSD 47.7 (H) 36.0 - [facility] [place] [address] [facility] RDWCV 14.6 (H) 11.4 - [facility] 13.8 % [facility] LABORATORY MPV 12.1 7.6 - 12.9 [facility] LABORATORY nRBC % Auto 0.0 % [facility] LABORATORY nRBC Abs Auto 0.000 0.000 - [facility] [place] 0.000 [facility] x10(3)/[facility] LABORATORY Specimen Anatomical Collection Method Collection Time Receive d Time (Source) Location / / Volume Laterality Blood specimen 12/05/2019 10:52 0 (specimen) PM EDT 10:59 PM EDT Resulting Agency Comment Spec In Lab Mandi Barrera MD HEMATOLOGY ORDERABLES Performing Organization Address City/State/[place] [address] Heparin (unfractionated) Level (12/05/2019 10:52 PM EDT) P athologist Signature Heparin UFH <0.04 IU/mL [facility] LABORATORY Comment: Guidelines for therapeutic [...] Organization Address City/State/[place] [address] MRI Brain wwo Contrast [...] Time Signature WBC 8.7 4.0 - 9.5 [facility] x10(3)/[facility] LABORATORY RBC 4.17 (L) 4.58 - [facility] 5.54 [facility] x10(6)/[facility] LABORATORY Hemoglobin 12.4 (L) 13.7 - [facility] 16.5 gm/dL [facility] LABORATORY Hematocrit 37.0 (L) 40.5 - [facility] 48.5 % [facility] LABORATORY MCV 88.7 82.9 - [facility] 93.1 [facility] LABORATORY MCH 29.7 27.5 - [facility] 32.1 pg [facility] LABORATORY MCHC 33.5 32.0 - [facility] 35.7 gm/dL [facility] LABORATORY Platelets 173 145 - 357 [facility] x10(3)/[facility] LABORATORY RDWSD 47.3 (H) 36.0 - [facility] 45.0 [facility] LABORATORY RDWCV 14.6 (H) 11.4 - [facility] 13.8 % [facility] LABORATORY MPV 12.1 7.6 - 12.9 [facility] LABORATORY nRBC % Auto 0.0 % [facility] LABORATORY nRBC Abs Auto 0.000 0.000 - [facility] 0.000 [facility] x10(3)/[facility] LABORATORY Specimen Anatomical Collection Method Collection Time Receive d Time (Source) Location / / Volume Laterality Blood specimen 12/05/2019 1:00 PM 020 1:13 (specimen) EDT PM EDT Resulting Agency Comment Spec In Lab Gretchen Yoon MD HEMATOLOGY ORDERABLES Performing Organization Address City/State/[place] [address] EKG 12 Lead (12/05/2019 10:52 AM EDT) Component Value Ref Range Test Analysis Performed Pathologis t Method Time At Signature Ventricular rate 72 BPM MUSE SYSTEM Atrial Rate 72 BPM MUSE SYSTEM P-R Interval 138 ms MUSE SYSTEM QRS Duration 96 ms MUSE SYSTEM Q-T Interval 396 ms MUSE SYSTEM QTC Calculated 433 ms MUSE SYSTEM (Bezet) Calculated P [place] 65 degrees MUSE SYSTEM Calculated R [place] 13 degrees MUSE SYSTEM Calculated T [place] 0 degrees MUSE SYSTEM INTERPRETATION Sinus rhythm Occasional Premature ventricular complexe s MUSE SYSTEM Possible Inferior infarct (cited on or before 29-NOV-2019) Abnormal ECG When compared with ECG of 04-DEC-2019 10:43, Sinus rhythm has replaced Atrial fibrillation Vent. rate has decreased BY ??86 BPM Confirmed by MD Ceja Daniel ([id number]) on 12/05/2019 3:55:22 PM Specimen Anatomical Collection Method Collection Time Receive d Time (Source) Location / / Volume Laterality 12/05/2019 10:52 12/05/2019 3:55 AM EDT PM EDT Paris Lagos MD ECG ORDERABLES Performing Organization Address City/State/ZIP Code Phon e Number MUSE SYSTEM Duplex Study for DVT, Bilat legs (12/05/2019 7:00 AM EDT) Component Value Ref Test Analysis Performed At [facility] Range Method Time Signature VB Text Department: Vascular Surgery Lab VASCUBASE Report Patient: [id number] (ANGEL LUIS SALINAS) CPT: 63379 ICD10: I26.99 Referring Physician: GRETCHEN YOON ?? [...] athologist Signature Magnesium 0.87 0.69 - 1.07 [facility] mmol/L [facility] LABORATORY Specimen Anatomical Collection Method Collection Time Receive d Time (Source) Location / / Volume Laterality Blood specimen 12/05/2019 4:18 AM 020 4:31 (specimen) EDT AM EDT Resulting Agency Comment Spec In Lab Gretchen Yoon MD CHEMISTRY ORDERABLES Performing Organization Address City/[facility]/[place] [address] (ABNORMAL) BMP w/fasting Glucose (12/05/2019 4:18 AM EDT) P athologist Signature Glucose 104 (H) 65 - 99 [facility] Fasting mg/dL [facility] LABORATORY Comment: ?Fasting* [...] of Diabetes Mellitus, Position Statement from the [place] [employer]. ??Diabete s Care, Volume 33, Supplement 1, Jul 2009 BUN 21 (H) 10 - 20 mg/dL [facility] LABORATORY Creatinine 1.02 0.80 - 1.50 mg/dL [facility] LABORATORY Sodium 136 135 - 145 mmol/L [facility] LABORATORY Potassium 3.9 3.5 - 5.0 mmol/L [facility] LABORATORY Comment: Please note: ??Patients [...] Anion Gap 12 5 - 15 mmol/L [facility] LABORATORY Calcium 8.8 8.5 - 10.5 mg/dL [facility] LABORATORY Estimated GFR 73 >=60 mL/min/1.73 m?? [facility] LABORATORY Comment: The eGFR was calculated using the CKD-EP I equation. As with all creatinine based estimates of kidney function, eGFR values calculated with the CKD-EPI equation are not accurate in patients wi th acute kidney failure, extremes of body mass or the acutely ill. http://[employer]/[facility] eGFR 84 >=60 mL/min/1.73 m?? [facility] LABORATORY Comment: The eGFR was calculated using the CKD-EP I equation. As with all creatinine based estimates of kidney function, eGFR values calculated with the CKD-EPI equation are not accurate in patients wi th acute kidney failure, extremes of body mass or the acutely ill. http://[employer]/[facility]nkf Specimen Anatomical Collection Method Collection Time Receive d Time (Source) Location / / Volume Laterality Blood specimen 12/05/2019 4:18 AM 020 4:31 (specimen) EDT AM EDT Resulting Agency Comment Spec In Lab Gretchen Yoon MD CHEMISTRY ORDERABLES Performing Organization Address City/State/[place] [address] (ABNORMAL) Hemogram (12/05/2019 4:18 AM EDT) Analysis Performed At Patho logist Time Signature WBC 8.6 4.0 - 9.5 [facility] x10(3)/[facility] LABORATORY RBC 4.28 (L) 4.58 - [facility] 5.54 [facility] x10(6)/[facility] LABORATORY Hemoglobin 12.4 (L) 13.7 - [facility] 16.5 gm/dL [facility] LABORATORY Hematocrit 37.3 (L) 40.5 - [facility] 48.5 % [facility] LABORATORY MCV 87.1 82.9 - [facility] 93.1 [facility] LABORATORY MCH 29.0 27.5 - [facility] 32.1 pg [facility] MCHC 33.2 32.0 - [facility] 35.7 gm/dL [facility] LABORATORY Platelets 163 145 - 357 [facility] x10(3)/[facility] LABORATORY RDWSD 46.4 (H) 36.0 - [facility] 45.0 [facility] LABORATORY RDWCV 14.4 (H) 11.4 - [facility] 13.8 % [facility] LABORATORY MPV 11.7 7.6 - 12.9 [facility] LABORATORY nRBC % Auto 0.0 % [facility] LABORATORY nRBC Abs Auto 0.000 0.000 - [facility] 0.000 [facility] x10(3)/[facility] LABORATORY Specimen Anatomical Collection Method Collection Time Receive d Time (Source) Location / / Volume Laterality Blood specimen 12/05/2019 4:18 AM 020 4:31 (specimen) EDT AM EDT Resulting Agency Comment Spec In Lab Gretchen Yoon MD HEMATOLOGY ORDERABLES Performing Organization Address City/State/[place] [address] Cardiac for Morphology [...] For questions regarding this report, please contact [facility] number below. ? Electronically signed by: Roselyn Luciano [facility] ([phone]), at 12/04/2019 6:16 PM Narrative 12/04/2019 6:16 [...] from neck/greatest puja meter to back wall: MALIAN 91, CAU 13: ??19 mm CORTES ??1, [...] from neck/greatest puja meter to back wall: MALIAN 91, CAU 13: 19 mm CORTES 1, [...] Electronically signed by: Roselyn Luciano, [facility] ([phone]), at 12/04/2019 6:16 PM Gretchen Yoon MD IMG CT ORDERABLES (ABNORMAL) Hemogram (12/04/2019 12:55 PM EDT) Analysis Performed At Patho logist Time Signature WBC 8.9 4.0 - 9.5 [facility] x10(3)/[facility] LABORATORY RBC 4.69 4.58 - [facility] 5.54 [facility] x10(6)/[facility] LABORATORY Hemoglobin 13.5 (L) 13.7 - [facility] 16.5 gm/dL [facility] LABORATORY Hematocrit 41.7 40.5 - [facility] 48.5 % [facility] LABORATORY MCV 88.9 82.9 - [facility] 93.1 fL [facility] LABORATORY MCH 28.8 27.5 - [facility] 32.1 pg [facility] HOSPITAL LABORATORY MCHC 32.4 32.0 - [facility] OLIVIA 35.7 gm/dL [facility] Platelets 196 145 - 357 [facility] x10(3)/[facility] LABORATORY RDWSD 46.7 (H) 36.0 - MEL[place] OLIVIA 45.0 [facility] LABORATORY RDWCV 14.5 (H) 11.4 - MELINA OLIVIA 13.8 % [facility] MPV 12.1 7.6 - 12.9 MELINA MONAE [facility] LABORATORY nRBC % Auto 0.0 % [facility] LABORATORY nRBC Abs Auto 0.000 0.000 - MELINA MONAE 0.000 [facility] x10(3)/[facility] LABORATORY Specimen Anatomical Collection Method Collection Time Receive d Time (Source) Location / / Volume Laterality Blood specimen 12/04/2019 12:55 0 1:06 (specimen) PM EDT PM EDT Resulting Agency Comment Spec In Lab Gretchen Yoon MD HEMATOLOGY ORDERABLES Performing Organization Address City/[facility]/[place] [address] EKG 12 Lead (12/04/2019 10:43 AM EDT) Component Value Ref Range Test Analysis Performed Pathologis t Method Time At Signature Ventricular rate 158 BPM MUSE SYSTEM Atrial Rate 102 BPM MUSE SYSTEM QRS Duration 92 ms MUSE SYSTEM Q-T Interval 294 ms MUSE SYSTEM QTC Calculated 476 ms MUSE SYSTEM (Bezet) Calculated R [place] 17 degrees MUSE SYSTEM Calculated T [place] 90 degrees MUSE SYSTEM INTERPRETATION Atrial fibrillation with rapid ventricular response MUSE SYSTEM Possible Inferior infarct (cited on or before 29-NOV-2019) Abnormal ECG When compared with ECG of 30-NOV-2019 21:07, Atrial fibrillation has replaced Sinus rhythm Vent. rate has increased BY ??65 BPM Confirmed by MD Ceja Daniel ([id number]) on 12/05/2019 8:59:44 AM Specimen Anatomical Collection Method Collection Time Receive d Time (Source) Location / / Volume Laterality 12/04/2019 10:43 12/05/2019 8:59 AM EDT AM EDT Gretchen Yoon MD ECG ORDERABLES Performing Organization Address City/State/ZIP Code Phon e Number MUSE SYSTEM (ABNORMAL) Magnesium (12/04/2019 4:28 AM EDT) P athologist Signature Magnesium 1.17 (H) 0.69 - 1.07 [facility] mmol/L [facility] Specimen Anatomical Collection Method Collection Time Receive d Time (Source) Location / / Volume Laterality Blood specimen 12/04/2019 4:28 AM 020 4:40 (specimen) EDT AM EDT Resulting Agency Comment Spec In Lab Gretchen Yoon MD CHEMISTRY ORDERABLES Performing Organization Address City/State/[place] [address] (ABNORMAL) BMP w/fasting Glucose (12/04/2019 4:28 AM EDT) athologist Signature Glucose 108 (H) 65 - 99 [facility] Fasting mg/dL [facility] Comment: ?Fasting* [...] of Diabetes Mellitus, Position Statement from the [place] [employer]. ??Diabete s Care, Volume 33, Supplement 1, Jul 2009 BUN 19 10 - 20 mg/dL [facility] LABORATORY Creatinine 0.89 0.80 - 1.50 mg/dL [facility] LABORATORY Sodium 135 135 - 145 mmol/L [facility] LABORATORY Potassium 4.2 3.5 - 5.0 mmol/L [facility] LABORATORY Comment: Please note: ??Patients [...] Anion Gap 12 5 - 15 mmol/L [facility] LABORATORY Calcium 8.5 8.5 - 10.5 mg/dL [facility] LABORATORY Estimated GFR 85 >=60 mL/min/1.73 m?? [facility] Comment: The eGFR was calculated using the CKD-EP I equation. As with all creatinine based estimates of kidney function, eGFR values calculated with the CKD-EPI equation are not accurate in patients wi th acute kidney failure, extremes of body mass or the acutely ill. http://[email or web address] eGFR 98 >=60 mL/min/1.73 m?? [facility] LABORAT[facility] Comment: The eGFR was calculated using the CKD-EP I equation. As with all creatinine based estimates of kidney function, eGFR values calculated with the CKD-EPI equation are not accurate in patients wi th acute kidney failure, extremes of body mass or the acutely ill. http://[employer]/[facility]AHnkf Specimen Anatomical Collection Method Collection Time Receive d Time (Source) Location / / Volume Laterality Blood specimen 12/04/2019 4:28 AM 020 4:40 (specimen) EDT AM EDT Resulting Agency Comment Spec In Lab Gretchen Yoon MD CHEMISTRY ORDERABLES Performing Organization Address City/State/[place] [address] (ABNORMAL) Hemogram (12/04/2019 4:28 AM EDT) Analysis Performed At Patho logist Time Signature WBC 7.8 4.0 - 9.5 [facility] x10(3)/[facility] LABORATORY RBC 4.10 (L) 4.58 - [facility] 5.54 [facility] x10(6)/[facility] LABORATORY Hemoglobin 12.0 (L) 13.7 - [facility] 16.5 gm/dL [facility] Hematocrit 36.5 (L) 40.5 - [facility] 48.5 % [facility] MCV 89.0 82.9 - [facility] 93.1 fL [facility] MCH 29.3 27.5 - MELINA MONAE 32.1 pg [facility] MCHC 32.9 32.0 - MELINA MONAE 35.7 gm/dL [facility] Platelets 151 145 - 357 MELINA MARSHOLIVIA x10(3)/[facility] LABORATORY RDWSD 46.9 (H) 36.0 - MELINA MONAE 45.0 [facility] LABORATORY RDWCV 14.4 (H) 11.4 - MELINA MONAE 13.8 % [facility] MPV 12.2 7.6 - 12.9 MELINA MONAE fL [facility] nRBC % Auto 0.0 % [facility] nRBC Abs Auto 0.000 0.000 - MELINA MONAE 0.000 [facility] x10(3)/[facility] LABORATORY Specimen Anatomical Collection Method Collection Time Receive d Time (Source) Location / / Volume Laterality Blood specimen 12/04/2019 4:28 AM 020 4:40 (specimen) EDT AM EDT Resulting Agency Comment Spec In Lab Gretchen Yoon MD HEMATOLOGY ORDERABLES Performing Organization Address City/[facility]/ZIP Code Phon e Number [address] Potassium (12/03/2019 7:55 PM EDT) athologist Signature Potassium 3.9 3.5 - 5.0 [facility] mmol/L [facility] Comment: Please note: [...] Organization Address City/State/ZIP Code Phon e Number [address] Potassium (12/03/2019 1:57 PM [...] Organization Address City/State/[place] [address] (ABNORMAL) Hemogram (12/03/2019 1:57 PM EDT) Analysis Performed At Patho logist Time Signature WBC 8.8 4.0 - 9.5 [facility] x10(3)/[facility] LABORATORY RBC 4.27 (L) 4.58 - MELINA OLIVIA 5.54 [facility] x10(6)/[facility] LABORATORY Hemoglobin 12.5 (L) 13.7 - MELINA OLIVIA 16.5 gm/dL [facility] Hematocrit 37.5 (L) 40.5 - M[place]INA OLIVIA 48.5 % [facility] MCV 87.8 82.9 - M[place] OLIVIA 93.1 [facility] LABORATORY MCH 29.3 27.5 - MELINA OLIVIA 32.1 pg [facility] MCHC 33.3 32.0 - M[place] OLIVIA 35.7 gm/dL [facility] Platelets 158 145 - 357 [employer] x10(3)/[facility] LABORATORY RDWSD 46.9 (H) 36.0 - MEL[place] OLIVIA 45.0 [facility] LABORATORY RDWCV 14.5 (H) 11.4 - MELINA OLIVIA 13.8 % [facility] MPV 12.2 7.6 - 12.9 MELINA OLIVIA [facility] LABORATORY nRBC % Auto 0.0 % [facility] LABORATORY nRBC Abs Auto 0.000 0.000 - M[place] OLIVIA 0.000 [facility] x10(3)/[facility] LABORATORY Specimen Anatomical Collection Method Collection Time Receive d Time (Source) Location / / Volume Laterality Blood specimen 12/03/2019 1:57 PM 020 2:21 (specimen) EDT PM EDT Resulting Agency Comment Spec In Lab Gretchen Yoon MD HEMATOLOGY ORDERABLES Performing Organization Address City/State/ZIP Code Phon e Number [address] Magnesium (12/03/2019 4:02 AM EDT) athologist Signature Magnesium 0.79 0.69 - 1.07 [facility] mmol/L [facility] Specimen Anatomical Collection Method Collection Time Receive d Time (Source) Location / / Volume Laterality Blood specimen 12/03/2019 4:02 AM 020 4:16 (specimen) EDT AM EDT Resulting Agency Comment Spec In Lab Gretchen Yoon MD CHEMISTRY ORDERABLES Performing Organization Address City/State/[place] [address] (ABNORMAL) BMP w/fasting Glucose (12/03/2019 4:02 AM EDT) P athologist Signature Glucose 100 (H) 65 - 99 [facility] Fasting mg/dL [facility] Comment: ?Fasting* [...] of Diabetes Mellitus, Position Statement from the [place] [employer]. ??Diabete s Care, Volume 33, Supplement 1, Jul 2009 BUN 17 10 - 20 mg/dL [facility] LABORATORY Creatinine 0.95 0.80 - 1.50 mg/dL [facility] LABORATORY Sodium 136 135 - 145 mmol/L [facility] LABORATORY Potassium 3.4 (L) 3.5 - 5.0 mmol/L [facility] LABORATORY Comment: Please note: ??Patients [...] Anion Gap 15 5 - 15 mmol/L [facility] LABORATORY Calcium 8.3 (L) 8.5 - 10.5 mg/dL [facility] LABORATORY Estimated GFR 79 >=60 mL/min/1.73 m?? [facility] Comment: The eGFR was calculated using the CKD-EP I equation. As with all creatinine based estimates of kidney function, eGFR values calculated with the CKD-EPI equation are not accurate in patients wi th acute kidney failure, extremes of body mass or the acutely ill. http://[email or web address]nkf eGFR 92 >=60 mL/min/1.73 m?? [facility] LABOR[facility] Comment: The eGFR was calculated using the CKD-EP I equation. As with all creatinine based estimates of kidney function, eGFR values calculated with the CKD-EPI equation are not accurate in patients wi th acute kidney failure, extremes of body mass or the acutely ill. [email or web address] Specimen Anatomical Collection Method Collection Time Receive d Time (Source) Location / / Volume Laterality Blood specimen 12/03/2019 4:02 AM 020 4:16 (specimen) EDT AM EDT Resulting Agency Comment Spec In Lab Gretchen Yoon MD CHEMISTRY ORDERABLES Performing Organization Address City/State/[place] [address] (ABNORMAL) Hemogram (12/03/2019 4:02 AM EDT) Analysis Performed At Patho logist Time Signature WBC 9.1 4.0 - 9.5 [facility] x10(3)/[facility] LABORATORY RBC 4.01 (L) 4.58 - [facility] 5.54 [facility] x10(6)/[facility] LABORATORY Hemoglobin 11.8 (L) 13.7 - [facility] 16.5 gm/dL [facility] Hematocrit 35.6 (L) 40.5 - [facility] 48.5 % [facility] MCV 88.8 82.9 - [facility] 93.1 [facility] LABORATORY MCH 29.4 27.5 - [facility] 32.1 pg [facility] MCHC 33.1 32.0 - [facility] 35.7 gm/dL [facility] Platelets 130 (L) 145 - 357 [facility] x10(3)/[facility] LABORATORY RDWSD 46.6 (H) 36.0 - [facility] 45.0 [facility] LABORATORY RDWCV 14.4 (H) 11.4 - [facility] 13.8 % [facility] MPV 12.4 7.6 - 12.9 [facility] LABORATORY nRBC % Auto 0.0 % [facility] LABORATORY nRBC Abs Auto 0.000 0.000 - [facility] 0.000 [facility] x10(3)/[facility] LABORATORY Specimen Anatomical Collection Method Collection Time Receive d Time (Source) Location / / Volume Laterality Blood specimen 12/03/2019 4:02 AM 020 4:16 (specimen) EDT AM EDT Resulting Agency Comment Spec In Lab Gretchen Yoon MD HEMATOLOGY ORDERABLES Performing Organization Address City/State/[place] [address] XR Chest One View [...] Signature WBC 10.6 (H) 4.0 - 9.5 [facility] x10(3)/[facility] LABORATORY RBC 4.00 (L) 4.58 - [facility] 5.54 [facility] x10(6)/[facility] LABORATORY Hemoglobin 11.9 (L) 13.7 - [facility] 16.5 gm/dL [facility] Hematocrit 35.7 (L) 40.5 - [facility] 48.5 % [facility] MCV 89.3 82.9 - [facility] 93.1 [facility] LABORATORY MCH 29.8 27.5 - [facility] 32.1 pg [facility] MCHC 33.3 32.0 - [facility] 35.7 gm/dL [facility] Platelets 120 (L) 145 - 357 [facility] x10(3)/[facility] LABORATORY RDWSD 47.5 (H) 36.0 - [facility] 45.0 [facility] LABORATORY RDWCV 14.6 (H) 11.4 - [facility] 13.8 % [facility] MPV 12.0 7.6 - 12.9 [facility] LABORATORY nRBC % Auto 0.0 % [facility] LABORATORY nRBC Abs Auto 0.000 0.000 - [facility] 0.000 [facility] x10(3)/[facility] LABORATORY Specimen Anatomical Collection Method Collection Time Receive d Time (Source) Location / / Volume Laterality Blood specimen 12/02/2019 12:50 0 1:22 (specimen) PM EDT PM EDT Resulting Agency Comment Spec In Lab Gretchen Yoon MD HEMATOLOGY ORDERABLES Performing Organization Address City/State/[place] [address] Blue Tube HOLD (12/02/2019 4:55 AM EDT) P athologist Signature Blue Hold Sample in [facility] lab. [facility] LABORATORY Specimen Anatomical Collection Method Collection Time Receive d Time (Source) Location / / Volume Laterality Blood specimen Venous Draw / 12/02/2019 4:55 AM 2019 5:03 (specimen) Unknown EDT AM EDT Darrell Glasgow MD HEMATOLOGY ORDERABLES Performing Organization Address City/State/ZIP Code Phon e Number [address] Magnesium (12/02/2019 4:55 AM EDT) athologist Signature Magnesium 0.85 0.69 - 1.07 [facility] mmol/L [facility] Specimen Anatomical Collection Method Collection Time Receive d Time (Source) Location / / Volume Laterality Blood specimen 12/02/2019 4:55 AM 020 5:02 (specimen) EDT AM EDT Resulting Agency Comment Spec In Lab Gretchen Yoon MD CHEMISTRY ORDERABLES Performing Organization Address City/[facility]/[place] [address] (ABNORMAL) BMP w/fasting Glucose (12/02/2019 4:55 AM EDT) athologist Signature Glucose 114 (H) 65 - 99 [facility] Fasting mg/dL [facility] Comment: ?Fasting* [...] of Diabetes Mellitus, Position Statement from the [place] [employer]. ??Diabete s Care, Volume 33, Supplement 1, Jul 2009 BUN 13 10 - 20 mg/dL [facility] LABORATORY Creatinine 0.93 0.80 - 1.50 mg/dL [facility] LABORATORY Sodium 135 135 - 145 mmol/L [facility] LABORATORY Potassium 3.7 3.5 - 5.0 mmol/L [facility] LAB[facility]ORY Comment: Please note: ??Patients [...] Anion Gap 12 5 - 15 mmol/L [facility] LABORATORY Calcium 8.1 (L) 8.5 - 10.5 mg/dL [facility] LABORATORY Estimated GFR 81 >=60 mL/min/1.73 m?? [facility] Comment: The eGFR was calculated using the CKD-EP I equation. As with all creatinine based estimates of kidney function, eGFR values calculated with the CKD-EPI equation are not accurate in patients wi th acute kidney failure, extremes of body mass or the acutely ill. http://[employer]/[facility]nkf eGFR 94 >=60 mL/min/1.73 m?? [facility] LAB[facility] Comment: The eGFR was calculated using the CKD-EP I equation. As with all creatinine based estimates of kidney function, eGFR values calculated with the CKD-EPI equation are not accurate in patients wi th acute kidney failure, extremes of body mass or the acutely ill. http://[email or web address]nkf Specimen Anatomical Collection Method Collection Time Receive d Time (Source) Location / / Volume Laterality Blood specimen 12/02/2019 4:55 AM 020 5:02 (specimen) EDT AM EDT Resulting Agency Comment Spec In Lab Gretchen Yoon MD CHEMISTRY ORDERABLES Performing Organization Address City/State/[place] [address] (ABNORMAL) Hemogram (12/02/2019 4:55 AM EDT) Analysis Performed At Patho logist Time Signature WBC 9.3 4.0 - 9.5 [facility] x10(3)/[facility] LABORATORY RBC 3.71 (L) 4.58 - MELINA OLIVIA 5.54 [facility] x10(6)/[facility] LABORATORY Hemoglobin 10.8 (L) 13.7 - [facility] 16.5 gm/dL [facility] Hematocrit 33.1 (L) 40.5 - [facility] 48.5 % [facility] MCV 89.2 82.9 - [facility] 93.1 [facility] LABORATORY MCH 29.1 27.5 - [facility] 32.1 pg [facility] MCHC 32.6 32.0 - [facility] 35.7 gm/dL [facility] Platelets 93 (L) 145 - 357 [facility] x10(3)/[facility] LABORATORY RDWSD 47.1 (H) 36.0 - [facility] 45.0 [facility] LABORATORY RDWCV 14.6 (H) 11.4 - [facility] 13.8 % [facility]ORAT[facility] MPV 11.7 7.6 - 12.9 [facility] LABORATORY nRBC % Auto 0.0 % [facility] LABORATORY nRBC Abs Auto 0.000 0.000 - [facility] 0.000 [facility] x10(3)/[facility] LABORATORY Specimen Anatomical Collection Method Collection Time Receive d Time (Source) Location / / Volume Laterality Blood specimen 12/02/2019 4:55 AM 020 5:02 (specimen) EDT AM EDT Resulting Agency Comment Spec In Lab Gretchen Yoon MD HEMATOLOGY ORDERABLES Performing Organization Address City/State/[place] [address] Transfuse 1 unit platelets, [...] For questions regarding this report, please contact [facility] number below. ? Electronically signed by: Angel Luis Barboza MD, [facility] ([phone]), at 12/01/2019 8:02 PM Narrative 12/01/2019 8:02 [...] For questions regarding this report, please contact [facility] number below. Electronically signed by: Angel Luis Barboza MD, [facility] ([phone]), at 12/01/2019 8:02 PM Gretchen Yoon MD [...] Organization Address City/State/ZIP Code Phon e Number [place] [id number] HOSPITAL LABORATORY Drive Duplex for DVT, Arm, Unilat (12/01/2019 5:08 PM EDT) Component Value Ref Test Analysis Performed At Patholo gist Range Method Time Signature VB Text Department: Vascular Surgery Lab VASCUBASE Report Patient: [id number] (ANGEL LUIS SALINAS) CPT: 17285 ICD10: R60.0 Referring Physician: GRETCHEN YOON ?? [...] resident's interpretation and agree with the findings, Mearri Collins at 3:53 PM Thank you for letting us participate in the care of this patient. For questions regarding this report, please contact [facility] number below. ? Narrative 12/01/2019 3:53 PM EDT EXAMINATION: CT HEAD WO CONTRAST (GENERIC) CLINICAL HISTORY: Headache, intracranial hemorrhage suspected Serial CT scan: please assess for propag ation of known ICH noted on prior Head CT/imaging. TECHNIQUE: CT head performed without intravenous co ntrast administration. COMPARISON: Head CT 11/30/2019. CT angiogram of the [place] 11/01. FINDINGS: Ventricles are normal in size. Basal cis terns are patent. Unchanged hyperdense 2.3 x 0.7 x 0.6 cm tubular hemorrhage projecting along the course of the left optic tract (axial se [facility] 2 image 16), consistent with intraparenchymal [...] Head CT 11/30/2019. CT angiogram of the [place] 11/01. FINDINGS: Ventricles are normal [...] Peripheral Blood (12/01/2019 12:51 PM EDT) [facility] Method Time Signature Plat Estimate Decreased [facility] LABORAT[facility] RBC Morphology Normal [facility] LABORAT[facility] Giant Less than 1 /HPF [facility] Platelets [facility] LABORATORY Specimen Anatomical Collection Method Collection Time Receive d Time (Source) Location / / Volume Laterality Blood specimen 12/01/2019 12:51 0 1:05 (specimen) PM EDT PM EDT Resulting Agency Comment Spec In Lab Riki Stevens MD HEMATOLOGY ORDERABLES Performing Organization Address City/State/[place] [address] (ABNORMAL) Differential, Automated (12/01/2019 12:51 PM EDT) [facility] Method Time Signature Neutrophils % 74.9 % [facility] LABORATORY Neutr Abs (ANC) 6.34 (H) 1.70 - [facility] 6.10 [facility] x10(3)/[facility] LABORATORY Lymphocytes % 11.4 % [facility] LABORATORY Lymphocytes Abs 1.0 0.9 - 3.2 [facility] x10(3)/[facility] LABORATORY Monocytes % 12.4 % [facility] LABORATORY Monocyte Abs 1.0 (H) 0.3 - 0.9 [facility] x10(3)/[facility] LABORATORY Eosinophils % 0.4 % [facility] LABORATORY Eosinophils Abs 0.0 0.0 - 0.4 [facility] x10(3)/[facility] LABORATORY Basophils % 0.4 % [facility] LABORATORY Basophils Abs 0.0 0.0 - 0.1 [facility] x10(3)/[facility] LABORATORY Immature Gran % 0.50 % MELINA [...] Pita Gran Abs 0.04 0.00 - 0.04 x10(3)/[facility] LABORATORY Specimen Anatomical Collection Method Collection Time Receive d Time (Source) Location / / Volume Laterality Blood specimen 12/01/2019 12:51 0 1:05 (specimen) PM EDT PM EDT Resulting Agency Comment Spec In Lab Riki Stevens MD HEMATOLOGY ORDERABLES Performing Organization Address City/State/[place] [address] (ABNORMAL) Hemogram (12/01/2019 12:51 PM EDT) Analysis Performed At Patho logist Time Signature WBC 8.4 4.0 - 9.5 [facility] x10(3)/[facility] LABORATORY RBC 3.69 (L) 4.58 - [facility] 5.54 [facility] x10(6)/[facility] LABORATORY Hemoglobin 10.8 (L) 13.7 - [facility] 16.5 gm/dL [facility]ORATORY Hematocrit 32.4 (L) 40.5 - [facility] 48.5 % [facility] MCV 87.8 82.9 - [facility] 93.1 [facility] LABORATORY MCH 29.3 27.5 - [facility] OLIVIA 32.1 pg [facility]AT[facility] MCHC 33.3 32.0 - [facility] 35.7 gm/dL [facility] Platelets 72 (L) 145 - 357 [facility] x10(3)/[facility] LABORATORY RDWSD 47.2 (H) 36.0 - [facility] 45.0 [facility] LABORATORY RDWCV 14.6 (H) 11.4 - [facility] 13.8 % [facility] LABORATORY MPV 12.2 7.6 - 12.9 [facility] LABORATORY nRBC % Auto 0.0 % [facility] LABORATORY nRBC Abs Auto 0.000 0.000 - [facility] 0.000 [facility] x10(3)/[facility] LABORATORY Specimen Anatomical Collection Method Collection Time Receive d Time (Source) Location / / Volume Laterality Blood specimen 12/01/2019 12:51 0 1:05 (specimen) PM EDT PM EDT Resulting Agency Comment Spec In Lab Riki Stevens MD HEMATOLOGY ORDERABLES Performing Organization Address City/[facility]/ZIP Code Phon e Number [address] (ABNORMAL) Coox2 (12/01/2019 11:42 AM EDT) Analysis Performed At Patho logist Time Signature pO2 Coox 30 mmHg [facility] LABORATORY Hgb Blood Gas 11.6 (L) 13.7 - [facility] 16.5 gm/dL [facility] O2HB Coox 60.8 % [facility]OR[facility] COHB Coox 0.6 % [facility] Comment: Nonsmokers: 0.5-1.5% COHB Smokers: Variable, but usually less than 10% Toxic: 20-30% COHB Lethal: Greater than 60% COHB METHB Coox 0.6 <=1.5 % [facility] LABORATORY Source Coox Mixed Venous [facility] LABOR[facility] Specimen Anatomical Collection Method Collection Time Receive d Time (Source) Location / / Volume Laterality Blood specimen 12/01/2019 11:42 0 (specimen) AM EDT 11:42 AM EDT Gretchen Yoon MD CHEMISTRY ORDERABLES Performing Organization Address City/State/[place] [address] Sedimentation rate (12/01/2019 3:55 AM EDT) P athologist Signature Sed Rate 25 3 - 46 [facility] mm/hr [facility]OR[facility]ORY Comment: Effective June [...] MD HEMATOLOGY ORDERABLES Performing Organization Address City/[facility]/[place] [address] (ABNORMAL) CRP, acute inflammation [...] MD CHEMISTRY ORDERABLES Performing Organization Address City/[facility]/[place] [address] ABORH Recheck Status (12/01/2019 3:55 AM EDT) [facility] Method Time Signature ABORH Recheck Order Placed [facility] LABORATORY ABORH Type Complete [facility] LABORATORY Specimen Anatomical Collection Method Collection Time Receive d Time (Source) Location / / Volume Laterality Blood specimen 12/01/2019 3:55 AM 020 4:15 (specimen) EDT AM EDT Resulting Agency Comment Spec In Lab Lewis Gee MD BLOOD BANK ORDERABLES Performing Organization Address City/[facility]/[place] [address] Antibody screen (12/01/2019 3:55 AM EDT) [facility] Method Time Signature Ab Screen Negative [facility] LABORATORY Expires at 12/04/2019 [facility] [id number] on: [facility]ORATORY Specimen Anatomical Collection Method Collection Time Receive d Time (Source) Location / / Volume Laterality Blood specimen 12/01/2019 3:55 AM 020 4:15 (specimen) EDT AM EDT Resulting Agency Comment Spec In Lab Lewis Gee MD BLOOD BANK ORDERABLES Performing Organization Address City/State/[place] [address] ABO/Rh Typing (12/01/2019 3:55 AM EDT) athologist Signature ABORh Type AB Pos [facility] LABOR[facility]ORY Specimen Anatomical Collection Method Collection Time Receive d Time (Source) Location / / Volume Laterality Blood specimen 12/01/2019 3:55 AM 020 4:15 (specimen) EDT AM EDT Resulting Agency Comment Spec In Lab Lewis Gee MD BLOOD BANK ORDERABLES Performing Organization Address City/[facility]/[place] [address] (ABNORMAL) Troponin (12/01/2019 3:55 AM EDT) athologist Signature Troponin-T 4.35 (H) 0.00 - [facility] 0.00 ng/mL [facility] Comment: result rechecked-slw The 99th percentile for Troponin T is le ss than 0.01 ng/mL, any detectable cTnT concentration using this assay should be considered elevated. According to the third universal definit ion of myocardial infarction the following criteria with a clinical prese ntation consistent with acute myocardial ischemia meets the diagnosis for a myocardial infarction (ND). Detection of a rise and/or fall of [...] additional sample may be indicated. Reference: Third [place] Definition of Myocardial Infarction. Journal of the [place] College [employer]iology 2012;60:1581-98 Specimen Anatomical Collection Method Collection Time Receive d Time (Source) Location / / Volume Laterality Blood specimen 12/01/2019 3:55 AM 020 4:00 (specimen) EDT AM EDT Resulting Agency Comment Spec In Lab Gretchen Yoon MD CHEMISTRY ORDERABLES Performing Organization Address City/[facility]/ZIP Code Phon e Number [address] Magnesium (12/01/2019 3:55 AM EDT) P athologist Signature Magnesium 0.96 0.69 - 1.07 [facility] mmol/L [facility] LABORATORY Specimen Anatomical Collection Method Collection Time Receive d Time (Source) Location / / Volume Laterality Blood specimen 12/01/2019 3:55 AM 020 4:00 (specimen) EDT AM EDT Resulting Agency Comment Spec In Lab Gretchen Yoon MD CHEMISTRY ORDERABLES Performing Organization Address City/State/[place] [address] (ABNORMAL) BMP w/fasting Glucose (12/01/2019 3:55 AM EDT) P athologist Signature Glucose 148 (H) 65 - 99 [facility] Fasting mg/dL [facility] Comment: ?Fasting* [...] of Diabetes Mellitus, Position Statement from the [place] [employer] Association. ??Diabete s Care, Volume 33, Supplement 1, Jul 2009 BUN 11 10 - 20 mg/dL [facility] LABORATORY Creatinine 0.96 0.80 - 1.50 mg/dL [facility] LABORATORY Sodium 132 (L) 135 - 145 mmol/L [facility]OR[facility] Potassium 4.0 3.5 - 5.0 mmol/L [facility] LABOR[facility] Comment: Please note: ??Patients [...] Anion Gap 10 5 - 15 mmol/L [facility] LABORATORY Calcium 7.6 (L) 8.5 - 10.5 mg/dL [facility] LABORATORY Estimated GFR 78 >=60 mL/min/1.73 m?? [facility] Comment: The eGFR was calculated using the CKD-EP I equation. As with all creatinine based estimates of kidney function, eGFR values calculated with the CKD-EPI equation are not accurate in patients wi th acute kidney failure, extremes of body mass or the acutely ill. [email or web address]nkf eGFR 91 >=60 mL/min/1.73 m?? [facility] Comment: The eGFR was calculated using the CKD-EP I equation. As with all creatinine based estimates of kidney function, eGFR values calculated with the CKD-EPI equation are not accurate in patients wi th acute kidney failure, extremes of body mass or the acutely ill. [email or web address] Specimen Anatomical Collection Method Collection Time Receive d Time (Source) Location / / Volume Laterality Blood specimen 12/01/2019 3:55 AM 020 4:00 (specimen) EDT AM EDT Resulting Agency Comment Spec In Lab Gretchen Yoon MD CHEMISTRY ORDERABLES Performing Organization Address City/State/ZIP Code Phon e Number [facility] [place] [address] (ABNORMAL) Hemogram (12/01/2019 3:55 AM EDT) Analysis Performed At [facility] Time Signature WBC 11.0 (H) 4.0 - 9.5 [facility] x10(3)/[facility] LABORATORY RBC 3.46 (L) 4.58 - [facility] 5.54 [facility] x10(6)/[facility] LABORATORY Hemoglobin 10.2 (L) 13.7 - [facility] 16.5 gm/dL [facility] Hematocrit 31.2 (L) 40.5 - [facility] 48.5 % [facility] LABORATORY MCV 90.2 82.9 - [facility] 93.1 [facility] LABORATORY MCH 29.5 27.5 - [facility] 32.1 pg [facility] LABORATORY MCHC 32.7 32.0 - [facility] 35.7 gm/dL [facility] Platelets 98 (L) 145 - 357 [facility] x10(3)/[facility] LABORATORY RDWSD 47.9 (H) 36.0 - [facility] 45.0 [facility] LABORATORY RDWCV 14.6 (H) 11.4 - [facility] 13.8 % [facility] LABORATORY MPV 12.3 7.6 - 12.9 [facility] LABORATORY nRBC % Auto 0.0 % [facility] LABORATORY nRBC Abs Auto 0.000 0.000 - [facility] 0.000 [facility] x10(3)/[facility] LABORATORY Specimen Anatomical Collection Method Collection Time Receive d Time (Source) Location / / Volume Laterality Blood specimen 12/01/2019 3:55 AM 020 4:00 (specimen) EDT AM EDT Resulting Agency Comment Spec In Lab Gretchen Yoon MD HEMATOLOGY ORDERABLES Performing Organization Address City/State/[place] [address] (ABNORMAL) BLOOD GAS 2 ARTERIAL (11/30/2019 10:39 PM EDT) Analysis Performed At [facility] Time Signature pH Art 7.45 7.35 - [facility] 7.45 [facility] LABORATORY pCO2 Art 23 (L) 35 - 45 [facility] LABORATORY pO2 Art 76 (L) 85 - 104 [facility] LABORATORY HCO3 Art 15.3 (L) 20.0 - [facility] 26.0 [facility] mmol/L [facility] LABORATORY BE Art -8.7 (L) -3.0 - 3.0 [facility] mmol/L [facility] LABORATORY Hgb Blood Gas 11.7 (L) 13.7 - [facility] 16.5 gm/dL [facility] O2HB Art 94.2 94.0 - [facility] 97.0 % [facility]OR[facility] COHB Art 0.5 % [facility] Comment: Nonsmokers: 0.5-1.5% COHB Smokers: Variable, but usually less than 10% Toxic: 20-30% COHB Lethal: Greater than 60% COHB METHB Art 0.6 <=1.5 % [facility] LABORATORY Na Whole Blood 133 (L) 135 - 145 mmol/L [facility] LABORAT[facility] K Whole Blood 3.8 3.5 - 5.0 mmol/L [facility] Comment: Please note: Patients with [...] Blood 109 (H) 98 - 107 mmol/L [facility]OR[facility] Gluc Whole Bld 120 65 - 199 mg/dL [facility] LABOR[facility]ORY Comment: Diabetes: >=200 mg/dL plus symp toms. Lactate WB 0.8 0.5 - 2.2 mmol/L [facility] LABORATORY FIO2 Art 100 % [facility]ORAT[facility] PF Ratio Art 76 [facility] LABORATORY Specimen Anatomical Collection Method Collection Time Receive d Time (Source) Location / / Volume Laterality Blood specimen 11/30/2019 10:39 0 (specimen) PM EDT 10:39 PM EDT Gretchen Yoon MD CHEMISTRY ORDERABLES Performing Organization Address City/[facility]/[place] [address] EKG 12 Lead (11/30/2019 [...] (Bezet) Calculated P 12 degrees MUSE SYSTEM [place] Calculated R 19 degrees MUSE SYSTEM [place] Calculated T -47 degrees MUSE SYSTEM [place] INTERPRETATION Sinus rhythm with Premature supraventricular complexes [...] MD ECG ORDERABLES Performing Organization Address City/[facility]/ZIP Code Phon e Number MUSE SYSTEM (ABNORMAL) Urinalysis Microscopic Exam (11/30/2019 8:40 PM EDT) P athologist Signature RBC UA 27 (H) 0 - 3 /HPF [facility] LABORATORY WBC UA 4 (H) 0 - 3 /HPF [facility] LABORATORY Hyaline Cast 3 (H) 0 - 2 /LPF [facility] LABORATORY Specimen (Source) Anatomical Collection Method Collection Time Re ceived Time Location / / Volume Laterality Urine specimen 11/30/2019 8:40 11/30/2019 obtained via PM EDT 10:51 PM EDT indwelling urinary catheter (specimen) Resulting Agency Comment Spec In Lab Rossy Winn MD URINE ORDERABLES Performing Organization Address City/[facility]/[place] [address] (ABNORMAL) Urinalysis with reflex Culture (11/30/2019 8:40 PM EDT) Patholo gist Method Time Signature Glucose UA Negative Negative [facility] mg/dL [facility] Protein UA Negative Negative [facility] mg/dL [facility] Bilirubin UA Negative Negative [facility] mg/dL [facility] Comment: Clinical correlation required for positi ve Urine Bilirubin results as false positive may occur with some drugs and d rug related products. If a false positive is suspected a serum total bili morales should be considered if clinically indicated. Urobilinogen UA Normal Normal mg/dL [facility] LABORATORY pH UA 5.5 5.0 - 8.0 [facility]OR[facility] Blood UA Moderate (A) Negative mg/dL [facility] Ketones UA 40 (A) Negative mg/dL [facility] Nitrite UA Negative Negative [facility]ORATORY Leukocytes UA Trace (A) Negative [facility] LABORATORY Appearance UA Clear Clear [facility] LABORATORY Spec [place] UA 1.026 1.006 - 1.030 [facility] LABORATORY Color UA Yellow Yellow [facility]OR[facility] Culture Reflexed No [facility] LABORATORY Specimen (Source) Anatomical Collection Method Collection Time Re ceived Time Location / / Volume Laterality Urine specimen 11/30/2019 8:40 11/30/2019 obtained via PM EDT 10:51 PM EDT indwelling urinary catheter (specimen) Resulting Agency Comment Spec In Lab Gretchen Yoon MD URINE ORDERABLES Performing Organization Address City/State/[place] [address] (ABNORMAL) pro-Brain Natriuretic Peptide (11/30/2019 8:30 PM EDT) P athologist Signature ProBNP 2,802 (H) <=125 [facility] pg/mL [facility] Specimen Anatomical Collection Method Collection Time Receive d Time (Source) Location / / Volume Laterality Blood specimen Venous Draw / 11/30/2019 8:30 PM 2019 8:36 (specimen) Unknown EDT PM EDT Resulting Agency Comment Spec In Lab Rossy Winn MD CHEMISTRY ORDERABLES Performing Organization Address City/[facility]/ZIP Code [place] [address] (ABNORMAL) Troponin (11/30/2019 8:30 [...] meets the diagnosis for a myocardial infarction (ND). Detection of a rise and/or fall of [...] additional sample may be indicated. Reference: Third [place] Definition of Myocardial Infarction. Journal of the [place] College of Cardiology 2012;60:1581-98 Specimen Anatomical Collection Method Collection Time Receive d Time (Source) Location / / Volume Laterality Blood specimen Venous Draw / 11/30/2019 8:30 PM 2019 8:36 (specimen) Unknown EDT PM EDT Resulting Agency Comment Spec In Lab Rossy Winn MD CHEMISTRY ORDERABLES Performing Organization Address City/[facility]/ZIP Code [place] [address] Magnesium (11/30/2019 8:30 PM [...] Organization Address City/State/[place] [address] (ABNORMAL) Basic Metabolic Panel (non-fasting) (11/30/2019 8:30 PM EDT) athologist Signature Glucose Lvl 132 65 - 199 [facility] mg/dL [facility] Comment: Diabetes: >=200 mg/dL plus symp toms BUN 12 10 - 20 mg/dL [facility] Creatinine 0.94 0.80 - 1.50 mg/dL [facility] Sodium 136 135 - 145 mmol/L [facility] Potassium 3.9 3.5 - 5.0 mmol/L [facility] Comment: Please note: ??Patients [...] Anion Gap 11 5 - 15 mmol/L [facility] Calcium 7.9 (L) 8.5 - 10.5 mg/dL [facility] Estimated GFR 80 >=60 mL/min/1.73 m?? [facility] Comment: The eGFR was calculated using the CKD-EP I equation. As with all creatinine based estimates of kidney function, eGFR values calculated with the CKD-EPI equation are not accurate in patients wi th acute kidney failure, extremes of body mass or the acutely ill. http://[email or web address] eGFR 93 >=60 mL/min/1.73 m?? [facility] Comment: The eGFR was calculated using the CKD-EP I equation. As with all creatinine based estimates of kidney function, eGFR values calculated with the CKD-EPI equation are not accurate in patients wi th acute kidney failure, extremes of body mass or the acutely ill. [email or web address] Specimen Anatomical Collection Method Collection Time Receive d Time (Source) Location / / Volume Laterality Blood specimen 11/30/2019 8:30 PM 020 8:35 (specimen) EDT PM EDT Resulting Agency Comment Spec In Lab Gretchen Yoon MD CHEMISTRY ORDERABLES Performing Organization Address City/[facility] [address] Blood culture (11/30/2019 8:30 PM EDT) Patholo gist Method Time Signature Blood Culture No growth [place] at 5 days. [facility] Specimen Anatomical Collection Method Collection Time Receive d Time (Source) Location / / Volume Laterality Blood specimen 11/30/2019 8:30 PM 020 9:40 (specimen) EDT PM EDT Comment: L HAND Resulting Agency Comment Spec In Lab Gretchen Yoon MD MICROBIOLOGY - BLOOD ORDERAB LES Performing Organization Address City/[facility]/[place] [address] Blood culture (11/30/2019 8:30 PM EDT) Patholo gist Method Time Signature Blood Culture No growth [place] at 5 days. [facility] Specimen Anatomical Collection Method Collection Time Receive d Time (Source) Location / / Volume Laterality Blood specimen 11/30/2019 8:30 PM 020 9:40 (specimen) EDT PM EDT Comment: R HAND Resulting Agency Comment Spec In Lab Gretchen Yoon MD MICROBIOLOGY - BLOOD ORDERAB LES Performing Organization Address [facility] [place] [address] XR Chest One View [...] Time Signature pH Art 7.45 7.35 - [facility] 7.45 [facility] pCO2 Art 27 (L) 35 - 45 [facility] mmHg [facility] pO2 Art 68 (L) 85 - 104 [facility] LABORATORY HCO3 Art 18.2 (L) 20.0 - [facility] 26.0 [facility] mmol/[facility] LABORATORY BE Art -5.9 (L) -3.0 - 3.0 [facility] mmol/L [facility] Hgb Blood Gas 12.4 (L) 13.7 - [facility] 16.5 gm/dL [facility] O2HB Art 93.1 (L) 94.0 - [facility] 97.0 % [facility] COHB Art 0.8 % [facility] Comment: Nonsmokers: 0.5-1.5% COHB Smokers: Variable, but usually less than 10% Toxic: 20-30% COHB Lethal: Greater than 60% COHB METHB Art 0.4 <=1.5 % [facility] Na Whole Blood 133 (L) 135 - 145 mmol/L [facility] K Whole Blood 3.6 3.5 - 5.0 mmol/L [facility] Comment: Please note: Patients with [...] Blood 108 (H) 98 - 107 mmol/L [facility] Gluc Whole Bld 121 65 - 199 mg/dL [facility] Comment: Diabetes: >=200 mg/dL plus symp toms. Lactate WB 1.2 0.5 - 2.2 mmol/L [facility] Flow Art 5.0 LPM [facility] Specimen Anatomical Collection Method Collection Time Receive d Time (Source) Location / / Volume Laterality Blood specimen 11/30/2019 8:09 PM 020 8:09 (specimen) EDT PM EDT Gretchen Yoon MD CHEMISTRY ORDERABLES Performing Organization Address City/State/[place] [address] Angiogram [place] of [...] CT HEAD WO CONTRAST (GENERIC), CT ANGIOGRAM [place] CLINICAL HISTORY: Headache, intracranial hemorrhage suspected F/U on known ICH - assessing for propaga tion TECHNIQUE: CT head performed without intravenous co ntrast administration. CT angiogram [place] 65 cc Omnipaque 350 administered [...] HEAD WO CONTRAST (GENERI C), CT ANGIOGRAM [place] CLINICAL HISTORY: Headache, intracranial hemorrhage suspected F/U on known ICH - assessing for propaga tion TECHNIQUE: CT head performed without intravenous co ntrast administration. CT angiogram [place] 65 cc Omnipaque 350 administered [...] CT HEAD WO CONTRAST (GENERIC), CT ANGIOGRAM [place] CLINICAL HISTORY: Headache, intracranial hemorrhage suspected F/U on known ICH - assessing for propaga tion TECHNIQUE: CT head performed without intravenous co ntrast administration. CT angiogram [place] 65 cc Omnipaque 350 administered [...] HEAD WO CONTRAST (GENERI C), CT ANGIOGRAM [place] CLINICAL HISTORY: Headache, intracranial hemorrhage suspected F/U on known ICH - assessing for propaga tion TECHNIQUE: CT head performed without intravenous co ntrast administration. CT angiogram [place] 65 cc Omnipaque 350 administered [...] by: Angel Luis Barboza MD, [facility] ([phone]), at 11/30/2019 5:04 PM Gretchen Yoon MD [...] 453 ms MUSE SYSTEM (Bezet) Calculated P [place] 52 degrees MUSE SYSTEM Calculated R [place] 5 degrees MUSE SYSTEM Calculated T [place] -60 degrees MUSE SYSTEM INTERPRETATION Sinus rhythm [...] Nilo ? (Age): 1945(74y) Med Rec#: ? [id number] ?Sex: ?M ? Site Loc: ? [facility] ?Ht / Wt: ??178(cm)/64(kg) Pt. Loc: ?CCU ? BSA: ?1.8 Study Date: ?? 11/30/2019 ?Pt. Type: Inpatient Tape: ? Referring: GILMER Reading: Tello Mejia ([id number]) Venue Coordinator: Friend, Lolita Diagnosis: *ST elevation (STEMI) myocardial [...] Vmax ?0.58 ? m/sec ? MV deceleration [id number] ? m sec ? MV A-wave Vmax [...] ? Mid-Inferior ?Akinetic ? Mid-Inferoseptal ?Normal ? [place]-Septal ? Normal ? [place]-Anterior ? Normal ? [place]-Lateral ?Normal ? [place]-Inferior ? Hypokinetic ? [place]-Tip ?Normal ? This report has been electronically sign ed by: _ Tello Mejia MD ? 11/30/2019 12: 45:27 Images reviewed and interpretation [facility] Cardiac Ultrasound Laboratory Procedure Note Tello Mejia MD - 11/30/2019Formatti ng of this note might be different from the original. Procedure: Transthoracic Echocardiogram Patient: RITA ACOSTA(Age): [birth year](74y) Med Rec#: [id number] Sex: M Site Loc: [facility] Ht / Wt: 178(cm)/64(kg) Pt. Loc: [facility] BSA: 1.8 Study Date: 11/30/2019 Pt. Type: Inpatie nt Tape: Referring: VANGIEJ Reading: Tello Mejia ([id number]) Venue Coordinator: Eve Lolita Diagnosis: *ST elevation (STEMI) myocardial [...] MV E-wave Vmax 0.58 m/sec MV deceleration [id number] msec MV A-wave Vmax 0.74 m/sec MV [...] Hypokinetic Mid-Posterolateral Hypokinetic Mid-Inferior Akinetic Mid-Inferoseptal Normal [place]-Septal Normal [place]-Anterior Normal [place]-Lateral Normal [place]-Inferior Hypokinetic [place]-Tip Normal This report has been electronically sign ed by: _ Tello Mejia MD 11/30/2019 12:45:27 Images reviewed and interpretation verif d [facility] Cardiac Ultrasound Laboratory Gretchen Yoon MD [...] by: Angel Luis Barboza MD, [facility] ([phone]), at 11/30/2019 12:04 PM Narrative 11/30/2019 12:04 [...] [facility] Magnesium 0.88 0.69 - 1.07 [facility] mmol/L [facility] Specimen Anatomical Collection Method Collection Time Receive d Time (Source) Location / / Volume Laterality Blood specimen Venous Draw / 11/30/2019 8:30 AM 2019 8:37 (specimen) Unknown EDT AM EDT Resulting Agency Comment Spec In Lab Rossy Winn MD CHEMISTRY ORDERABLES Performing Organization Address City/State/[place] [address] (ABNORMAL) CK (11/30/2019 8:30 AM EDT) athologist [facility] CK, Total 1,645 (H) 0 - 200 [facility] unit/L [facility] Specimen Anatomical Collection Method Collection Time Receive d Time (Source) Location / / Volume Laterality Blood specimen 11/30/2019 8:30 AM 020 8:32 (specimen) EDT AM EDT Resulting Agency Comment Spec In Lab Gretchen Yoon MD CHEMISTRY ORDERABLES Performing Organization Address City/[facility]/ZIP [facility] [place] [address] (ABNORMAL) Troponin (11/30/2019 8:30 [...] meets the diagnosis for a myocardial infarction (ND). Detection of a rise and/or fall of [...] additional sample may be indicated. Reference: Third [place] Definition of Myocardial Infarction. Journal of the [place] College of Cardiology 2012;60:1581-98 Specimen Anatomical Collection Method Collection Time Receive d Time (Source) Location / / Volume Laterality Blood specimen 11/30/2019 8:30 AM 020 8:32 (specimen) EDT AM EDT Resulting Agency Comment Spec In Lab Gretchen Yoon MD CHEMISTRY ORDERABLES Performing Organization Address City/State/[place] [address] EKG 12 Lead (11/30/2019 7:57 AM EDT) Component Value Ref Range Test Analysis Performed Pathologis t Method Time At Signature Ventricular rate 64 BPM MUSE SYSTEM Atrial Rate 64 BPM MUSE SYSTEM P-R Interval 132 ms MUSE SYSTEM QRS Duration 78 ms MUSE SYSTEM Q-T Interval 420 ms MUSE SYSTEM QTC Calculated 433 ms MUSE SYSTEM (Bezet) Calculated P [place] 28 degrees MUSE SYSTEM Calculated R [place] 7 degrees MUSE SYSTEM Calculated T [place] -33 degrees MUSE SYSTEM INTERPRETATION Sinus rhythm [...] Signature Glucose 147 (H) 65 - 99 [facility] Fasting mg/dL [facility] Comment: ?Fasting* [...] of Diabetes Mellitus, Position Statement from the [place] Diabetes Association. ??Diabete s Care, Volume 33, Supplement 1, Jul 2009 BUN 13 10 - 20 mg/dL [facility] Creatinine 0.90 0.80 - 1.50 mg/dL [facility] Sodium 135 135 - 145 mmol/L [facility] Potassium 3.9 3.5 - 5.0 mmol/L [facility] Comment: Please note: ??Patients [...] Anion Gap 11 5 - 15 mmol/L [facility] Calcium 7.5 (L) 8.5 - 10.5 mg/dL [facility] Estimated GFR 84 >=60 mL/min/1.73 m?? [facility] Comment: The eGFR was calculated using the CKD-EP I equation. As with all creatinine based estimates of kidney function, eGFR values calculated with the CKD-EPI equation are not accurate in patients wi th acute kidney failure, extremes of body mass or the acutely ill. [email or web address] eGFR 98 >=60 mL/min/1.73 m?? [facility] Comment: The eGFR was calculated using the CKD-EP I equation. As with all creatinine based estimates of kidney function, eGFR values calculated with the CKD-EPI equation are not accurate in patients wi th acute kidney failure, extremes of body mass or the acutely ill. [email or web address]QUAHnkf Specimen Anatomical Collection Method Collection Time Receive d Time (Source) Location / / Volume Laterality Blood specimen 11/30/2019 2:15 AM 020 2:29 (specimen) EDT AM EDT Resulting Agency Comment Spec In Lab Gretchen Yoon MD CHEMISTRY ORDERABLES Performing Organization Address City/State/ZIP Code Phon e Number [place] [id number] (ABNORMAL) Hemogram (11/30/2019 2:15 AM EDT) Analysis Performed At Patho logist Time Signature WBC 11.2 (H) 4.0 - 9.5 [facility] x10(3)/[facility] LABORATORY RBC 3.83 (L) 4.58 - [facility] 5.54 [facility] x10(6)/[facility] LABORATORY Hemoglobin 11.4 (L) 13.7 - [facility] 16.5 gm/dL [facility] Hematocrit 35.2 (L) 40.5 - [facility] 48.5 % [facility] MCV 91.9 82.9 - [facility] 93.1 fL [facility] MCH 29.8 27.5 - [facility] 32.1 [facility] LABORATORY MCHC 32.4 32.0 - [facility] [place] 35.7 gm/dL [facility] Platelets 122 (L) 145 - 357 [facility] x10(3)/[facility] LABORATORY RDWSD 49.8 (H) 36.0 - [place] 45.0 [facility] LABORATORY RDWCV 14.8 (H) 11.4 - [place] OLIVIA 13.8 % [facility] MPV 12.1 7.6 - 12.9 MELINA MONAE [facility] LABORATORY nRBC % Auto 0.0 % [facility] LABORAT[facility] nRBC Abs Auto 0.000 0.000 - [place] [facility] 0.000 [facility] x10(3)/[facility] LABORATORY Specimen Anatomical Collection Method Collection Time Receive d Time (Source) Location / / Volume Laterality Blood specimen 11/30/2019 2:15 AM 020 2:29 (specimen) EDT AM EDT Resulting Agency Comment Spec In Lab Gretchen Yoon MD HEMATOLOGY ORDERABLES Performing Organization Address City/[facility]/ZIP Code Phon e Number [address] (ABNORMAL) CK (11/30/2019 2:15 AM EDT) [facility] CK, Total 1,969 (H) 0 - 200 [facility] unit/L [facility] Specimen Anatomical Collection Method Collection Time Receive d Time (Source) Location / / Volume Laterality Blood specimen 11/30/2019 2:15 AM 020 2:29 (specimen) EDT AM EDT Resulting Agency Comment Spec In Lab Gretchen Yoon MD CHEMISTRY ORDERABLES Performing Organization Address City/State/[place] [address] (ABNORMAL) Troponin (11/30/2019 2:15 AM EDT) [facility] Troponin-T 11.73 (H) 0.00 - MELINA [...] meets the diagnosis for a myocardial infarction (ND). Detection of a rise and/or fall of [...] additional sample may be indicated. Reference: Third [place] Definition of Myocardial Infarction. Journal of the [place] College of Cardiology 2012;60:1581-98 result rechecked- The 99th percentile for Troponin T is le ss than 0.01 ng/mL, any detectable cTnT concentration using this assay should be considered elevated. According to the third universal definit ion of myocardial infarction the following criteria with a clinical prese ntation consistent with acute myocardial ischemia meets the diagnosis for a myocardial infarction (ND). Detection of a rise and/or fall of [...] additional sample may be indicated. Reference: Third [place] Definition of Myocardial Infarction. Journal of the [place] College of Cardiology 2012;60:1581-98 Corrected from 11.73 ng/ml [HI] on 11/29 3:11:51 EDT by Debi Hawley Specimen Anatomical Collection Method Collection Time Receive d Time (Source) Location / / Volume Laterality Blood specimen 11/30/2019 2:15 AM 020 2:29 (specimen) EDT AM EDT Resulting Agency Comment Spec In Lab Gretchen Yoon MD CHEMISTRY ORDERABLES Performing Organization Address City/[facility]/ZIP Code Phon e Number [address] LDL Cholesterol, Direct (11/30/2019 2:15 AM EDT) P athologist Signature LDL Chol 156 mg/dL [facility] LABORATORY Comment: Lowest Risk: <100 mg/dL Lower Risk: 100-129 mg/dL Borderline High Risk: 130-159 mg/dL High Risk: 160-189 mg/dL Very High Risk: >ho=675 mg/dL Specimen Anatomical Collection Method Collection Time Receive d Time (Source) Location / / Volume Laterality Blood specimen 11/30/2019 2:15 AM 020 2:29 (specimen) EDT AM EDT Resulting Agency Comment Spec In Lab Gretchen Yoon MD CHEMISTRY ORDERABLES Performing Organization Address City/[facility]/ZIP Code Phon e Number [address] (ABNORMAL) Hemoglobin A1c (11/30/2019 2:15 AM EDT) Analysis Performed At Patho logist Time Signature Hemoglobin A1C 6.3 (H) 4.3 - 5.6 [facility] Comment: Reference Range: [...] Mellitus, Diabetes Care 2013; 36: Suppl. 1, F73-98 Est Avg Gluc See note mg/dL PORTER [...] with hemoglobinopathies. Additional resources are available on [facility] ADA website. Kiko CARBAJAL, Jenn J, Silas R, et al. ??Tr anslating the A1C assay into estimated average glucose values. ??Diabetes Care 2008:31(8):5157-4515. Specimen Anatomical Collection Method Collection Time Receive d Time (Source) Location / / Volume Laterality Blood specimen 11/30/2019 2:15 AM 020 2:29 (specimen) EDT AM EDT Resulting Agency Comment Spec In Lab Gretchen Yoon MD CHEMISTRY ORDERABLES Performing Organization Address City/State/[place] [address] Lipid Panel (Reflex Direct LDL) (11/30/2019 2:15 AM EDT) athologist Signature Chol, Total 195 mg/dL [facility] Comment: Lower Risk: <200 mg/dL Average Risk: 200-239 mg/dL Higher Risk: >ft=672 mg/dL Triglycerides 93 mg/dL [facility] Comment: Average Risk/Lower Risk: <150 mg/dL Borderline High Risk: 150-199 mg/dL High Risk: 200-499 mg/dL Very High Risk: >yc=603 mg/dL HDL 32 mg/dL [facility] Comment: Males: ?? Higher Risk: <40 mg/dL Females: ?? HIgher Risk: <50 mg/dL LDL Cholesterol 144 mg/dL [facility] Comment: Lowest Risk: <100 mg/dL Lower Risk: 100-129 mg/dL Borderline High Risk: 130-159 mg/dL High Risk: 160-189 mg/dL Very High Risk: >cy=310 mg/dL Chol/HDL Ratio 6.1 ratio [facility] Lipid Interpretation See Note [facility] Comment: Lipid management should be guided by a p atient? s ASCVD risk, goals and preferences. ACC/AHA Guidelines recommend high intens ity statin if clinical ASCVD or LDL greater than or equal to 190 mg/dL. http://[email or web address]/KZU-DGC-Ghgcbepcn Adults aged 40-75 with LDL 70-189 mg/dL should have their 10 year ASCVD risk estimated with the ACC/AHA ASCVD risk es timator http://tools.acc.org/QZFTY-Kiuz-Oqaqtsmt r/ Statin should be discussed if risk [...] Organization Address City/State/[place] [address] (ABNORMAL) CK (11/29/2019 6:35 PM EDT) athologist Signature CK, Total 2,780 (H) 0 - 200 [facility] unit/L [facility] Specimen Anatomical Collection Method Collection Time Receive d Time (Source) Location / / Volume Laterality Blood specimen 11/29/2019 6:35 PM 020 6:53 (specimen) EDT PM EDT Resulting Agency Comment Spec In Lab Gretchen Yoon MD CHEMISTRY ORDERABLES Performing Organization Address City/State/[place] [address] (ABNORMAL) Troponin (11/29/2019 6:35 PM EDT) athologist Signature Troponin-T 17.60 (H) 0.00 - [facility] 0.00 ng/mL [facility] Comment: result rechecked-az The 99th percentile for Troponin T is le ss than 0.01 ng/mL, any detectable cTnT concentration using this assay should be considered elevated. According to the third universal definit ion of myocardial infarction the following criteria with a clinical prese ntation consistent with acute myocardial ischemia meets the diagnosis for a myocardial infarction (ND). Detection of a rise and/or fall of [...] additional sample may be indicated. Reference: Third [place] Definition of Myocardial Infarction. Journal of the [place] College of Cardiology 2012;60:1581-98 Specimen Anatomical Collection Method Collection Time Receive d Time (Source) Location / / Volume Laterality Blood specimen 11/29/2019 6:35 PM 020 6:53 (specimen) EDT PM EDT Resulting Agency Comment Spec In Lab Gretchen Yoon MD CHEMISTRY ORDERABLES Performing Organization Address City/State/[place] [address] EKG 12 Lead (11/29/2019 3:58 PM EDT) [facility] gist Method Time Signature Ventricular rate 73 BPM MUSE SYSTEM Atrial Rate 73 BPM MUSE SYSTEM P-R Interval 152 ms MUSE SYSTEM QRS Duration 84 ms MUSE SYSTEM Q-T Interval 404 ms MUSE SYSTEM QTC Calculated 445 ms MUSE SYSTEM (Bezet) Calculated P [place] 50 degrees MUSE SYSTEM Calculated R [place] -4 degrees MUSE SYSTEM Calculated T [place] 19 degrees MUSE SYSTEM INTERPRETATION Sinus rhythm [...] lung apex is excluded from the imaged [id number]. IMPRESSION: 1. ??New right internal jugular pulmonar [...] lung apex is excluded from the imaged [id number]. Procedure Note Estefani Harris MD - 11/29/2019Formattin [...] lung apex is excluded from the imaged [id number]. IMPRESSION 1. New right internal jugular pulmonary [...] Differential, Automated (11/29/2019 2:32 PM EDT) [facility] Method Time Signature Neutrophils % 83.8 % [facility] Neutr Abs (ANC) 12.12 (H) 1.70 - [facility] 6.10 [facility] x10(3)/[facility] LABORATORY Lymphocytes % 9.1 % [facility]OR[facility] Lymphocytes Abs 1.3 0.9 - 3.2 [facility] x10(3)/[facility] LABORATORY Monocytes % 6.2 % [facility] LABOR[facility] Monocyte Abs 0.9 0.3 - 0.9 [facility] x10(3)/[facility] LABORATORY Eosinophils % 0.0 % [facility] Eosinophils Abs 0.0 0.0 - 0.4 [facility] x10(3)/[facility] LABORATORY Basophils % 0.3 % [facility] Basophils Abs 0.0 0.0 - 0.1 [facility] x10(3)/[facility] LABORATORY Immature Gran % 0.60 % [facility] [...] Gran Abs 0.08 (H) 0.00 - 0.04 x10(3)/[facility] LABORATORY Specimen Anatomical Collection Method Collection Time Receive d Time (Source) Location / / Volume Laterality Blood specimen 11/29/2019 2:32 PM 020 2:55 (specimen) EDT PM EDT Resulting Agency Comment Spec In Lab Darrell Glasgow MD HEMATOLOGY ORDERABLES Performing Organization Address City/State/[place] [address] (ABNORMAL) Hemogram (11/29/2019 2:32 PM EDT) Analysis Performed At Patho logist Time Signature WBC 14.5 (H) 4.0 - 9.5 [facility] x10(3)/[facility] LABORATORY RBC 4.53 (L) 4.58 - [facility] 5.54 [facility] x10(6)/[facility] LABORATORY Hemoglobin 13.1 (L) 13.7 - [facility] 16.5 gm/dL [facility] Hematocrit 40.8 40.5 - [facility] 48.5 % [facility] MCV 90.1 82.9 - [facility] 93.1 [facility] LABORATORY MCH 28.9 27.5 - [facility] 32.1 pg [facility] MCHC 32.1 32.0 - [facility] 35.7 gm/dL [facility] Platelets 184 145 - 357 [facility] x10(3)/[facility] LABORATORY RDWSD 47.8 (H) 36.0 - [facility] 45.0 [facility] LABORATORY RDWCV 14.5 (H) 11.4 - [facility] 13.8 % [facility]ORAT[facility] MPV 11.9 7.6 - 12.9 [facility] nRBC % Auto 0.0 % [facility] LABORATORY nRBC Abs Auto 0.000 0.000 - [place] [facility] 0.000 [facility] x10(3)/[facility] LABORATORY Specimen Anatomical Collection Method Collection Time Receive d Time (Source) Location / / Volume Laterality Blood specimen 11/29/2019 2:32 PM 020 2:55 (specimen) EDT PM EDT Resulting Agency Comment Spec In Lab Darrell Glasgow MD HEMATOLOGY ORDERABLES Performing Organization Address City/State/ZIP Code Phon e Number [address] (ABNORMAL) CK (11/29/2019 2:32 PM EDT) athologist Signature CK, Total 3,282 (H) 0 - 200 [facility] unit/L [facility]ORY Specimen Anatomical Collection Method Collection Time Receive d Time (Source) Location / / Volume Laterality Blood specimen 11/29/2019 2:32 PM 020 2:32 (specimen) EDT PM EDT Resulting Agency Comment Spec In Lab Gretchen Yoon MD CHEMISTRY ORDERABLES Performing Organization Address City/[facility] [place] [address] (ABNORMAL) Troponin (11/29/2019 2:32 [...] meets the diagnosis for a myocardial infarction (ND). Detection of a rise and/or fall of [...] additional sample may be indicated. Reference: Third [place] Definition of Myocardial Infarction. Journal of the [place] College of Cardiology 2012;60:1581-98 Specimen Anatomical Collection Method Collection Time Receive d Time (Source) Location / / Volume Laterality Blood specimen 11/29/2019 2:32 PM 020 2:32 (specimen) EDT PM EDT Resulting Agency Comment Spec In Lab Gretchen Yoon MD CHEMISTRY ORDERABLES Performing Organization Address [facility] [address] (ABNORMAL) APTT (11/29/2019 2:32 PM EDT) P athologist Signature PTT 114 25 - 37 [facility] (Critical) [facility] LABORATORY Comment: Critical Result called by ?? [...] Yoon MD HEMATOLOGY ORDERABLES Performing Organization Address [facility] [address] (ABNORMAL) Prothrombin Time (11/29/2019 2:32 PM EDT) P athologist Signature PT 13.5 (H) 9.4 - 12.5 [facility] LABORATORY INR 1.2 [facility] [...] Organization Address City/State/[place] [address] (ABNORMAL) Hepatic Function Panel (11/29/2019 2:32 PM EDT) P athologist Signature Total Protein 6.3 6.1 - 8.0 [facility] gm/dL [facility] Albumin 3.6 3.2 - 5.2 [facility] gm/dL [facility] AST 257 (H) 0 - 39 [facility]L [facility] ALT 50 0 - 55 [facility]L [facility] Alk Phos 84 40 - 130 [facility]L [facility] Total 0.3 0.2 - 1.3 [facility] Bilirubin mg/dL [facility] Bili, Direct 0.1 0.0 - 0.3 [facility] mg/dL [facility] Specimen Anatomical Collection Method Collection Time Receive d Time (Source) Location / / Volume Laterality Blood specimen 11/29/2019 2:32 PM 020 2:32 (specimen) EDT PM EDT Resulting Agency Comment Spec In Lab Gretchen Yoon MD CHEMISTRY ORDERABLES Performing Organization Address City/[facility]/[place] [address] (ABNORMAL) pro-Brain Natriuretic Peptide [...] MD CHEMISTRY ORDERABLES Performing Organization Address City/[facility]/ZIP Code Phon e Number [place] Magnesium (11/29/2019 2:32 PM EDT) athologist Signature Magnesium 0.76 0.69 - 1.07 [facility] mmol/L [facility] LABORATORY Specimen Anatomical Collection Method Collection Time Receive d Time (Source) Location / / Volume Laterality Blood specimen 11/29/2019 2:32 PM 020 2:32 (specimen) EDT PM EDT Resulting Agency Comment Spec In Lab Gretchen Yoon MD CHEMISTRY ORDERABLES Performing Organization Address City/State/ZIP Code Phon e Number [address] (ABNORMAL) Basic Metabolic Panel (non-fasting) (11/29/2019 2:32 PM EDT) athologist Signature Glucose Lvl 149 65 - 199 [facility] mg/dL [facility] Comment: Diabetes: >=200 mg/dL plus symp toms BUN 16 10 - 20 mg/dL [facility] LABORATORY Creatinine 0.94 0.80 - 1.50 mg/dL [facility] LABORATORY Sodium 135 135 - 145 mmol/L [facility] LABORATORY Potassium 4.5 3.5 - 5.0 mmol/L [facility] LABORATORY Comment: Please note: ??Patients [...] Anion Gap 15 5 - 15 mmol/L [facility] LABORATORY Calcium 8.0 (L) 8.5 - 10.5 mg/dL [facility] LABORATORY Estimated GFR 80 >=60 mL/min/1.73 m?? [facility] Comment: The eGFR was calculated using the CKD-EP I equation. As with all creatinine based estimates of kidney function, eGFR values calculated with the CKD-EPI equation are not accurate in patients wi th acute kidney failure, extremes of body mass or the acutely ill. [email or web address]://[employer]/[facility]f eGFR 93 >=60 mL/min/1.73 m?? [facility] Comment: The eGFR was calculated using the CKD-EP I equation. As with all creatinine based estimates of kidney function, eGFR values calculated with the CKD-EPI equation are not accurate in patients wi th acute kidney failure, extremes of body mass or the acutely ill. [email or web address]://[email or web address]f Specimen Anatomical Collection Method Collection Time Receive d Time (Source) Location / / Volume Laterality Blood specimen 11/29/2019 2:32 PM 020 2:32 (specimen) EDT PM EDT Resulting Agency Comment Spec In Lab Gretchen Yoon MD CHEMISTRY ORDERABLES Performing Organization Address City/[facility] [address] EKG 12 Lead (11/29/2019 11:38 AM EDT) [facility] gist Method Time Signature Ventricular rate 60 BPM MUSE SYSTEM Atrial Rate 60 BPM MUSE SYSTEM P-R Interval 140 ms MUSE SYSTEM QRS Duration 86 ms MUSE SYSTEM Q-T Interval 474 ms MUSE SYSTEM QTC Calculated 474 ms MUSE SYSTEM (Bezet) Calculated P [place] 48 degrees MUSE SYSTEM Calculated R [place] 14 degrees MUSE SYSTEM Calculated T [place] 58 degrees MUSE SYSTEM INTERPRETATION Normal sinus [...] MD ECG ORDERABLES Performing Organization Address City/[facility] Phon e Number MUSE SYSTEM CARDIAC CATHETERIZATION (11/29/2019 11:15 AM EDT) Anatomical Region Laterality Modality Other Specimen (Source) Anatomical Location Collection Method / Collectio n Time Received Time / Laterality Volume Narrative 11/30/2019 1:09 PM EDT ?[facility] ? Cardiac Cathete rization/Intervention Report ? Patient Name: [place]inas, Angel Luis H. ? Procedure Date: 11/29/2019 ? A #: [id number] ? Primary Physician: Shaan, Gretchen N ? Case #: [id number] ? File Name: [id number] ? Catheterization Order Number: [id number] ? [facility] ? Final Report [place], [place] ? Patient Name: ? Angel Luis Salinas ? ID#: ?[id number] ? : ?1945 ? Procedure Date: ? [...] procedure was Emergent. The indication for ?the coreroom foundry laborer visit is ACS less than or [...] dose administered prior to arrival in the coreroom foundry laborer. ?Recommended anti-platelet/anti- thrombotic regimen: ?Continue aspirin 81 mg daily fo r indefinitely. ?Continue clopidogrel 75 mg marco a y for 12 months then stop. ?These recommendations are made at the time of the intervention. Patient ?and provider preferences or a c hanging clinical situation may require ?modification of this regimen. C marvult [facility] Interventional Cardiology for ?questions. ? Conclusions: ?* [...] note might be different from the original. [facility] Cardiac Catheterization/Intervention Re port Patient Name: SalinasAngel Luis Procedure Date: 11/29/2019 A #: [id number] Primary Physician: Gretchen Yoon Case #: [id number] File Name: [id number] Catheterization Order Number: [id number] [facility] Final Report [place], [place] Patient Name: Angel Luis Salinas ID#: [id number] : 1945 Procedure Date: November 29, [...] was designated as ASA Class IV. The [facility] clinical frailty scale is 4: Vulnerable. Diagnostic Tests: Electrocardiography: EKG was assessed by ECG. EKG was Abnorm al. EKG showed ST Deviation >= 0.5 mm. Medications Prior to Procedure: Aspirin. Indications for Diagnostic Cath: The priority of the diagnostic procedur e was Emergent. The indication for the coreroom foundry laborer visit is ACS less than or [...] priority for the procedure was Emergent. [facility] the [facility] was [...] this intervention was 10%. The final TI ND flow was 2. Distal 90% Thrombectomy and [...] this intervention was 10%. The final TI ND flow was 2. Vascular Access: Vascular Access [...] administered prior t o arrival in the coreroom foundry laborer. Recommended anti-platelet/anti-thrombot ic regimen: Continue aspirin 81 mg daily for indefi nitely. Continue clopidogrel 75 mg daily for 12 months then stop. These recommendations are made at the t loyda of the intervention. Patient and provider preferences or a changing clinical situation may require modification of this regimen. Consult D [facility] Interventional Cardiology for questions. Conclusions: [...] Signature POC pH 7.33 (L) 7.35 - [facility] 7.45 [facility] POC PCO2 33 (L) 35 - 45 [facility] mmHg [facility] POC PO2 56 (L) 85 - 104 [facility] LABORATORY POC Base Excess -8.0 (L) -3.0 - 3.0 [facility] K mmol/L [facility] POC HCO3 17.4 (L) 20.0 - [facility] 26.0 [facility] mmol/[facility] POC Sodium 137 135 - 145 [facility] mmol/L [facility] POC Potassium 3.6 3.5 - 5.0 [facility] mmol/L [facility] POC Ionized Ca 1.15 1.15 - [facility] 1.33 [facility] Hematocrit 37.0 (L) 40.0 - [facility] 51.0 % [facility] POC Calc Hgb 12.6 (L) 13.7 - [facility] 17.5 gm/dL [facility] Comment: The [...] Organization Address City/State/[place] [address] EKG 12 Lead (11/29/2019 9:01 AM EDT) Component Value Ref Range Test Analysis Performed Pathologis t Method Time At Signature Ventricular rate 80 BPM MUSE SYSTEM Atrial Rate 79 BPM MUSE SYSTEM QRS Duration 94 ms MUSE SYSTEM Q-T Interval 436 ms MUSE SYSTEM QTC Calculated 502 ms MUSE SYSTEM (Bezet) Calculated R [place] 54 degrees MUSE SYSTEM Calculated T [place] 80 degrees MUSE SYSTEM INTERPRETATION Normal sinus rhythm MUSE SYSTEM Inferior infarct , possibly acute Prolonged QT * ACUTE ND ?? Consider right ventricular involvement in acute [...] ONCE, 1 dose, 12/06/19 at 0515, Ad valuer over 120 Minutes magnesium sulfate 2 g [...] Bentley, NIURKA) 0-8,000 Units, Intravenous, BOLUS PER [facility] PROTOCOL, Starting 12/06/19 at 0926, Until [...] Oral, EVERY 4 HOURS PRN, Startin g Treichlers 11/30/19 at 2016, Until Sun12/08/19 at 1811, hypokalemia
Administer for serum potassium (mMol/L) of 3.9 - 4 See instructions for Potassium Protocol in online policies.
Routine Or potassium chloride ER (K-Dur/Klor-Con) tablet 40 mEqJump to med 40 mEq, Oral, EVERY 4 HOURS PRN, Startin g Treichlers 11/30/19 at 2016, Until Sun12/08/19 at 1811, hypokalemia
Administer for serum potassium (mMol/L) of 3.6 - 3.8 See instructions for Potassium Protocol in online policies.
Routine documented in this encounter Care Teams Screw Cutter Relationship Specialty Start Date End Date France Lam MD PCP - General 05/02/13 02/04/20 [address] [place] [address] documented as of this encounter
--- OUTSIDE RECORDS SUMMARY | 2022-04-18 11:01 | XMS_ITS | Encounter Summary ---
:1945 Author Organization [place] [address] Care Team Providers Name Role Phone France Lam MD Primary Care Provider Encounter Details Date Type Department Care Team Description 11/29/2019 External Results [place] [address] Social History Tobacco Use Types Packs/Day [...] filedocumented in this encounter Care Teams Residential Program Manager Relationship Specialty Start Date End Date France Lam MD PCP - General 05/02/13 02/04/20 [address] [place] [address] documented as of this encounter
--- OUTSIDE RECORDS SUMMARY | 2022-04-18 11:01 | XMS_ITS | Encounter Summary ---
:1945 Author Organization [facility] Address [facility] [address] [place] [address] Care Team Providers Name Role Phone France Lam MD Primary Care Provider Reason for Visit Reason Comments Claudication Encounter Details Date Type Department Care Team Description 05/13/2013 Office Visit Vascular Surgery at [facility] from [facility] MD Bobby peripheral vascular [facility] dis ease, left ([address]) [place], [place] VASCULAR SURGERY [address] [place] [address] [phone] Social History Tobacco Use Types Packs/Day Years [...] unspecified documented in this encounter Care Teams Antique Clocks Repairer Relationship Specialty Start Date End Date Fracne Lam MD PCP - General 05/02/13 02/04/20 [address] [place] [address] documented as of this encounter
[2022-04-20 11:17] VITALS: BP 101/63; PULSE 52; O2SAT 94
[2022-04-25 10:58] VITALS: BP 107/59; PULSE 48
[2022-04-27 10:55] VITALS: BP 108/57; PULSE 46
--- OUTSIDE RECORDS SUMMARY | 2022-04-27 11:05 | XMS_ITS | Encounter Summary ---
:1945 Author Organization [facility] Address [address] [place] [address] Care Team Providers Name Role Phone Jennifer Gomez RAIL CAR OPERATOR Primary Care Provider Encounter Details Date Type Department Care Team Description 02/07/2020 Lab Requisition [facility] Outr Resulting Lab, Pathology & Laboratory Provider [facility] [address] [place] [address] Social History Tobacco Use Types [...] (02/07/2020 7:59 EDT) COVID-19 rt-PCR NEGATIVE Negative [facility] Result Comment: LABORATORY 2019-novel [...] Organization Address City/State/ZIP Code Phon e Number [facility] [place], [place] COVID-19 TESTING (02/07/2020 7:59 EDT) COVID-19 rt-PCR NEGATIVE Negative [facility] Result Comment: LABORATORY 2019-novel [...] Organization Address City/State/ZIP Code Phon e Number [facility] [address] [place] [address] SERVICES [facility] [place], [place] documented in this encounter Visit Diagnoses Not on filedocumented in this encounter Care Teams Warehouse Receiving Supervisor Relationship Specialty Start Date End Date Jennifer Gomez NP PCP - General 05/10/15 [facility] [address] [place], [place] [address] documented as of this encounter
--- OUTSIDE RECORDS SUMMARY | 2022-04-27 11:05 | XMS_ITS | Encounter Summary ---
:1945 Author Organization [facility] Address [address] [place] [address] Care Team Providers Name Role Phone Jennifer Gomez FURNITURE UPHOLSTERER APPRENTICE Primary Care Provider Encounter Details Date Type Department Care Team Description 04/24/2022 Lab Requisition [facility] Outr Resulting Lab, Pathology & Laboratory Provider [facility] [address] [place], [place] [address] Social History Tobacco Use Types Packs/Day Years Used Date Never Assessed Sex Assigned at Date Recorded Not on file documented as of this encounter Plan of Treatment Not on filedocumented as of this encounter Procedures Procedure Name Priority Date/Time Associated Diagnosis Comme nts T3 FREE Routine 04/24/2022 11:50 EDT Results for this procedure are i n the results section . documented in this encounter Results T3 FREE (04/24/2022 11:50 EDT) Pathologist Sig nature T3, Free 2.8 2.8 - 5.3 pg/mL [facility] Specimen Blood - Venous blood (substance) Performing Organization Address City/State/ZIP Code Phon e Number [facility] [address] [place] [address] SERVICES documented in this encounter Visit Diagnoses Not on filedocumented in this encounter Care Teams Skinner Pelts Relationship Specialty Start Date End Date Jennifer Gomez, FURNITURE UPHOLSTERER APPRENTICE PCP - General 05/10/15 [facility] [address] [place] [address] documented as of this encounter
--- OUTSIDE RECORDS SUMMARY | 2022-04-27 11:05 | XMS_ITS | Encounter Summary ---
:1945 Author Organization [facility] Address [address] [place] [address] Care Team Providers Name Role Phone Jennifer Gomez NEEDLE LOOM SETTER Primary Care Provider Encounter Details Date Type Department Care Team Description 12/22/[address] [facility] Outr Resulting Lab, Pathology & Laboratory Provider [facility] [address] [place], [place] [id number] Social History Tobacco Use Types Packs/Day Years Used Date Never Assessed Sex Assigned at Date Recorded Not on file documented as of this encounter Plan of Treatment Not on filedocumented as of this encounter Procedures Procedure Name Priority Date/Time Associated Diagnosis Comme nts COVID-19 TEST [facility] Today 12/22/2019 10:38 LAB PCR EDT COVID-19 TESTING Routine 12/22/2019 10:38 Results for this EDT procedure are i n the results section. documented in this encounter Results COVID-19 TEST [facility] LAB PCR (12/22/2019 10:38 EDT) Specimen Swab - Entire nasopharynx (body structur e) Performing Organization Address City/State/ZIP Code Phon e Number [facility] [address] [place] [address] SERVICES COVID-19 TESTING (12/22/2019 10:38 EDT) COVID-19 rt-PCR Negative Negative [email or web address] MEDICAL Result Comment: [facility]ENTER LABORATORY Negative results do not prec lude 2019-nCoV infection and should not be used as the sole basis for treatment or other patient management decisions. Negative results must be combined with clinical observa SERVICES tions, patient history, and epidemiological informatio n. This test was developed and its performance characteristics determined by [facility]. It has not been cleared or [...] by the FDA Performed on the [employer] [address]. Performing Lab [address] [facility] Lab [facility] SERVICES Specimen Swab Performing Organization Address City/State/ZIP Code Phon e Number [facility] [address] [place] [address] SERVICES documented in this encounter Visit Diagnoses Not on filedocumented in this encounter Care Teams Superintendent Police Relationship Specialty Start Date End Date Jennifer Gomez NP PCP - General 05/10/15 [facility] [address] [place], [place] [id number] documented as of this encounter
--- OUTSIDE RECORDS SUMMARY | 2022-04-27 11:05 | XMS_ITS | Encounter Summary ---
:1945 Author Organization [facility] Address [address] [place] [address] Care Team Providers Name Role Phone Jennifer Gomez PRODUCTION CORRUGATOR Primary Care Provider Encounter Details Date Type Department Care Team Description 08/26/[address] [facility] Najma Valladares for other Pathology & M, DO general examination Laboratory Medicine - [address] [facility] [address] [place] [phone] Social History Tobacco Use Types Packs/Day Years [...] 8:45 EST) Note to Patient The following [facility] MEDICAL pathology results have CENTER been interpreted by your LABORATORY pathologist and may be SERVICES available to you before your health provider has had the opportunity to review them. Please allow time for your provider to receive these results and explore management options, if applicable. Final Diagnosis A. RECTUM, POLYP, BIOPSY : [facility] MEDICAL - Polypoid submucosal anal glands. CENTER - Overlying rectal mucosa negative for dysplasia. LABORATORY - See comment. SERVICES Diagnosis Comment This rectal polyp shows a cantor bmucosal collection of anal duct glands causing a polypoid configuration. The morphology and the immunohistochemical profile are consistent with a benign (non-neoplastic) pro [facility] MEDICAL cess. Chicken Picker slides of this case were reviewed at the gastrointestinal/liver intradepartmental consultation conference. [facility]ENTER LABORATORY ANTIBODY(CLONE)(BLOCK):RESULT SERVICES CK7 (RN7, Leica) (A1): Strongly positive PAX-8 (MRQ-50, Bowen) (A1): Negative NKX3.1 (Rabbit Polyclonal, [employer]oc[employer]) (A1): Negative GATA3 (L50-823, Bowen) (A1): Negative NOTE: One or more of [...] characteristics have been de termined by [facility] and/or by the referring laboratory. [...] Attestation By the signature below, [facility] Elec tronically the attending physician CENTER sign ed by Odalis, certifies that they have LABORATORY Tami MD edna on 1) personally conducted SERVICES 2021 at 1309 a gross and/or microscopic examination of the described specimen(s), and/or personally interpreted the results of laboratory testing of the described specimen(s), and 2) personally rendered or confirmed the above diagnosis. Clinical History Flex sigmoidoscopy; [facility] diverticulosis, polyp [facility]ENTER LABORATORY SERVICES Gross Description A. [facility] Received in formalin mark d with proper patient identification (initials M, J) and rectal polyp is a marr-brown polyp, 0.6 x 0.5 x 0.4 cm. Bisected and entirely submitted in A1. [facility]ENTER LABORATORY ESTEFANY NICHOLS(ASCP) 08/26/2021 16:41 SE RVICES Performing Lab [facility] HOSPITAL LAB [facility] SERVICES Scanned Images [facility] SERVICES Specimen Tissue - Specimen from rectum (specimen) Performing Organization Address City/State/ZIP Code Phon e Number [facility] [address] [place] [address] SERVICES documented in this encounter Visit Diagnoses Diagnosis Encounter for other general examination documented in this encounter Care Teams Ict Sales Representative Relationship Specialty Start Date End Date Jennifer Gomez NP PCP - General 05/10/15 [facility] [address] [place] [phone] documented as of this encounter
--- OUTSIDE RECORDS SUMMARY | 2022-04-27 11:05 | XMS_ITS | Continuity of Care Document ---
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 Z23 Encounter for [place]IE [place] immunizationwith CBO C Provider Comments: Encounter for Immunization Diagnosis: ICD-10-CM Active Diagnosis ST. H90.3 Sensorineural [facility] hearing loss, CBOC bilateralwith Provider Comments: Asymmetrical sensorineural hearing loss (SNOMED CT [id number]) Diagnosis: ICD-10-CM Active Diagnosis ST. I25.10 Athscl heart [facility] disease of [place] CB OC coronary artery w/o ang pctrswith Provider Comments: Atherosclerotic Heart Disease of [place] Coronary Artery without Angina Pectoris Medications Combined list of outpatient medications from Department of Defense and Veterans Affairs facilities. Medications provided include 1) outpatient medications from the last 15 months, and 2) patient-reported medications. Medication Details Route Status Patient Prescription Prescription Last Ordering Order Source Instructions Expires Number Dispense Provider Date Date AMIODARONE TAKE ONE ORAL ACTIVE 02/14/2023 [id number] JORGE A LOZA 02/15/ HCL TABLET 2 N 2021 [place] (PACERONE) BY MOUTH [place] 200MG TAB EVERY VA[facility] DAY AFTER ONE MONTH OF TWICE DAILY DOSING THROUGH 02/26/22 APIXABAN TAKE ONE ORAL ACTIVE 2023 [id number] WILLIE LOZA 01/20/ WHITE 5MG TAB TABLET 2 N 2021 [place] BY MOUTH [place] TWICE A [facility] DAY TO HELP PREVENT BLOOD CLOTS (ANTICOA GULATION CCNRX) APIXABAN TAKE ONE ORAL 12/21/2021 [id number] GIANGR ECO 12/30/ WHITE 5MG TAB TABLET 2 ,MILTON B 2020 [place] BY MOUTH [place] EVERY [facility] TWELVE HOURS TO HELP PREVENT BLOOD CLOTS (ANTICOA GULATION ) ASPIRIN TAKE ONE ORAL ACTIVE GIANGRECO 12/20/ WHI TE 81MG TAB,EC TABLET ,MILTON Will 2020 ANNALEE ER BY MOUTH [place] EVERY [facility] DAY CHOLECALCIF TAKE ONE ORAL ACTIVE IRASEMA,P 04/22/ ST. DARIO 25MCG TABLET KARYY A 2014 [place] (1,000UNIT) BY MOUTH RY CB OC TAB EVERY OTHER DAY FUROSEMIDE TAKE ONE ORAL ACTIVE 12/17/2022 [id number] JORGE A LOZA 12/21/ Departm 20MG TAB TABLET 2 N 2021 ent of BY MOUTH [place] EVERY s OTHER Affairs DAY TO REMOVE FLUID/CO NTROL BLOOD PRESSURE FUROSEMIDE TAKE ONE ORAL 11/12/2021 [id number] SJ PATTONM 11/12/ ST. 20MG TAB TABLET 2 ICHAEL 2020 [place] BY MOUTH RY CBOC EVERY OTHER DAY TO REMOVE FLUID/CO NTROL BLOOD PRESSURE LISINOPRIL TAKE ONE ORAL ACTIVE 12/17/2022 [id number] JORGE A LOZA 12/21/ Departm 5MG TAB TABLET 2 N 2021 ent of BY MOUTH [place] EVERY s DAY TO Affairs CONTROL BLOOD PRESSURE LISINOPRIL TAKE ONE ORAL DISCONT 06/08/2022 [id number] JORGE A LOZA 06/15/ WHITE 5MG TAB TABLET INUED 2 N 2020 [place] BY MOUTH [place] EVERY [facility] DAY TO CONTROL BLOOD PRESSURE LISINOPRIL TAKE ONE ORAL 06/03/2021 [id number] STANBobby PATTON,M 06/08/ ST. 5MG TAB TABLET 1 ICHAEL 2019 [place] BY MOUTH RY CBOC EVERY DAY TO CONTROL BLOOD PRESSURE METOPROLOL TAKE ONE ORAL ACTIVE 02/14/2023 [id number] JORGE A LOZA 02/15/ WHITE SUCCINATE TABLET 2 N 2021 [place] 25MG TAB,SA BY MOUTH [place] EVERY [facility] DAY FOR BLOOD PRESSURE /HEART METOPROLOL TAKE ONE ORAL DISCONT 02/23/2022 [id number] STANL ABDIM 02/28/ ST. SUCCINATE TABLET INUED 2 ICHAEL 2020 [place] 25MG TAB,SA BY MOUTH RY CB OC EVERY DAY FOR BLOOD PRESSURE /HEART NITROGLYCER TAKE ONE SUBLIN 02/23/2022 [id number] S Mery LUO 02/28/ ST. 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 2020 ed [...] [place] FORMULATION Communit y [place] [facility] TD(ADULT) complet W JIMBO UNSPECIFIED [...] result by 1.210 Tests performed on [employer] (405) SN:[id number] [place] eGFR E] IN SERUM Ordering Pr ovider: MILTON UREÑA [facility] PANEL OR PLASMA Report Rele ed Date/Time: Feb 24, 2021 11:18 AM Reporting Lab: [place] [facility] [address] [facility] [address] Performing Lab: [place] [facility] [address] [facility] [address] CREATININ GLOMERULAR 44 60 04/28 L Specimen Ty pe: PLASMA WHITE E WITH FILTRATION /2020 Comment: For eGFR: Race unknown, if multiply result by 1.210 Tests performed on [employer] (405) SN:[id number] [place] eGFR RATE/1.73 Ordering Prov ider: [place] UREÑA [facility] PANEL SQ Report Released Date/Time: Feb 24, 2021 11:18 AM M.PREDICTED Reporting L ab: [place] [facility] [VOLUME [address] [facility] [place] [address] RATE/AREA] Performing L ab: [place] [facility] IN SERUM OR [address] [place] [facility] [place] [facility] [place] [address] PLASMA BY CREATININE- BASED FORMULA (MDRD) CBC NO LEUKOCYTES 5.8 4.5 - 11.0 04/28 Specimen T ype: BLOOD WHITE DIFF [#/VOLUME] /2020 No comment en tered. [place] IN BLOOD BY Ordering Pr ovider: [place] [facility] AUTOMATED Report Releas ed Date/Time: Feb 24, 2021 11:18 AM COUNT Reporting Lab: [place] [facility] [address] [facility] [place] [address] Performing Lab: [place] [facility] [address] [facility] [place] [address] CBC NO ERYTHROCYTE 4.61 4.23 - 04/28 Specimen Typ e: BLOOD WHITE DIFF S 5.66 /2020 No comment enter ed. [place] [#/VOLUME] Ordering Pro vider: [place] UREÑA [facility] IN BLOOD BY Report Rele ased Date/Time: Feb 24, 2021 11:18 AM AUTOMATED Reporting Lab : [place] [facility] COUNT [address] [place] [facility] [place] [address] Performing Lab: [place] [facility] [address] [facility] [address] CBC NO HEMOGLOBIN 13.9 12.8 - 17 04/28 Specimen Ty pe: BLOOD WHITE DIFF [MASS/VOLUM /2020 No comment e ntered. [place] E] IN BLOOD Ordering Pr ovider: MILTON UREÑAOC Report Released Date/Time: Feb 24, 2021 11:18 AM Reporting Lab: [place] [facility] [address] [place] [facility] [place] [address] Performing Lab: [place] [facility] [address] [facility] [place] [address] CBC NO HEMATOCRIT 43.6 39.2 - 04/28 Specimen Type : BLOOD WHITE DIFF [VOLUME 50.4 No comment enter ed. [place] FRACTION] Ordering Prov ider: [place] UREÑA [facility] OF BLOOD BY Report Rele ased Date/Time: Feb 24, 2021 11:18 AM AUTOMATED Reporting Lab : [place] [facility] COUNT [address] [place] [facility] [place] [address] Performing Lab: [place] [facility] [address] [facility] [place] [address] CBC NO MCV 94.6 82 - 99 04/28 Specimen Type: B LOOD WHITE DIFF [ENTITIC /2020 No comment ente red. [place] VOLUME] BY Ordering Pro vider: MILTON UREÑAOC AUTOMATED Report Releas ed Date/Time: Feb 24, 2021 11:18 AM COUNT Reporting Lab: [place] [facility] [address] [place] [facility] [place] [address] Performing Lab: [place] [facility] [address] [facility] [place] [address] CBC NO MCH 30.2 26.2 - 04/28 Specimen Type: B LOOD WHITE DIFF [ENTITIC 32.6 /2020 No comment ente red. [place] MASS] BY Ordering Provi adrian: MILTON UREÑA AUTOMATED Report Releas ed Date/Time: Feb 24, 2021 11:18 AM COUNT Reporting Lab: [place] [facility] [address] [facility] [place] [address] Performing Lab: [place] [facility] [address] [facility] [place] [address] CBC NO MCHC 31.9 30.8 - 04/28 Specimen Type: B LOOD WHITE DIFF [MASS/VOLUM 35.1 /2020 No comment e ntered. [place] E] BY Ordering Provid er: MILTON UREÑA AUTOMATED Report Releas ed Date/Time: Feb 24, 2021 11:18 AM COUNT Reporting Lab: [place] [facility] [address] [facility] [place] [address] Performing Lab: [place] [facility] [address] [facility] [place] [address] CBC NO PLATELETS 141 140 - 360 04/28 Specimen Typ e: BLOOD WHITE DIFF [#/VOLUME] /2020 No comment en tered. [place] IN BLOOD BY Ordering Pr ovider: MIL[place] UREÑ[facility] AUTOMATED Report Releas ed Date/Time: Feb 24, 2021 11:18 AM COUNT Reporting Lab: [place] [facility] [address] [facility] [place] [address] Performing Lab: [place] [facility] [address] [facility] [place] [address] CBC NO PLATELET 12.1 9.2 - 12.4 04/28 Specimen Typ e: BLOOD WHITE DIFF MEAN VOLUME /2020 No comment e ntered. [place] [ENTITIC Ordering Provi adrian: MILTON UREÑA [facility] VOLUME] IN Report Relea sed Date/Time: Feb 24, 2021 11:18 AM BLOOD BY Reporting Lab: [place] [facility] AUTOMATED [address] [place] [facility] [place] [facility] [place] [address] COUNT Performing Lab: [place] [facility] [address] [facility] [place] [address] CBC NO ERYTHROCYTE 15.0 12.0 - 10/28 Specimen Typ e: BLOOD WHITE DIFF DISTRIBUTIO 16.0 /2020 No comment e ntered. [place] N WIDTH Ordering Provid er: MILTON UREÑAOC [RATIO] BY Report Relea sed Date/Time: Feb 24, 2021 11:18 AM AUTOMATED Reporting Lab : [place] [facility] COUNT [address] [place] [facility] [place] [address] Performing Lab: [place] [facility] [address] [facility] [place] [address] CBC NO LEUKOCYTES 6.8 4.5 - 11.0 02/22 Specimen T ype: BLOOD WHITE DIFF [#/VOLUME] /2020 No comment en tered. [place] IN BLOOD BY Ordering Pr ovider: MILTON UREÑA AUTOMATED Report Reletraci ed Date/Time: Dec 20, 2020 02:24 PM COUNT Reporting Lab: [place] [facility] [address] [facility] [place] [address] Performing Lab: [place] [facility] [address] [facility] [place] [address] CBC NO ERYTHROCYTE 5.03 4.23 - 02/22 Specimen Typ e: BLOOD WHITE DIFF S 5.66 /2020 No comment enter ed. [place] [#/VOLUME] Ordering Pro vider: MIL[place] UREÑA [facility] IN BLOOD BY Report Joan ased Date/Time: Dec 20, 2020 02:24 PM AUTOMATED Reporting Lab : [place] [facility] COUNT [address] [facility] [place] [address] Performing Lab: [place] [facility] [address] [facility] [place] [address] CBC NO HEMOGLOBIN 14.9 12.8 - 17 02/22 Specimen Ty pe: BLOOD WHITE DIFF [MASS/VOLUM /2020 No comment e ntered. [place] E] IN BLOOD Ordering Pr ovider: MILTON UREÑA Report Released Date/Time: Dec 20, 2020 02:24 PM Reporting Lab: [place] [facility] [address] [facility] [place] [address] Performing Lab: [place] [facility] [address] [facility] [place] [address] CBC NO HEMATOCRIT 46.7 39.2 - 02/22 Specimen Type : BLOOD WHITE DIFF [VOLUME 50.4 No comment enter ed. [place] FRACTION] Ordering Prov ider: MILTON UREÑA [facility] OF BLOOD BY Report Rele ased Date/Time: Dec 20, 2020 02:24 PM AUTOMATED Reporting Lab : [place] [facility] COUNT [address] [place] [facility] [place] [address] Performing Lab: [place] [facility] [address] [place] [facility] [place] [address] CBC NO MCV 92.8 82 - 99 02/22 Specimen Type: B LOOD WHITE DIFF [ENTITIC /2020 No comment ente red. [place] VOLUME] BY Ordering Pro vider: MILTON UREÑ[facility] AUTOMATED Report Releas ed Date/Time: Dec 20, 2020 02:24 PM COUNT Reporting Lab: [place] [facility] [address] [place] [facility] [place] [address] Performing Lab: [place] [facility] [address] [place] [facility] [place] [address] CBC NO MCH 29.6 26.2 - 02/22 Specimen Type: B LOOD WHITE DIFF [ENTITIC 32.6 No comment ente red. [place] MASS] BY Ordering Provi adrian: MIL[place] UREÑA [facility] AUTOMATED Report Releas ed Date/Time: Dec 20, 2020 02:24 PM COUNT Reporting Lab: [place] [facility] [address] [place] [facility] [place] [address] Performing Lab: [place] [facility] [address] [place] [facility] [place] [address] CBC NO MCHC 31.9 30.8 - 02/22 Specimen Type: B LOOD WHITE DIFF [MASS/VOLUM 35.1 No comment e ntered. [place] E] BY Ordering Provid er: [place] UREÑA [facility] AUTOMATED Report Releas ed Date/Time: Dec 20, 2020 02:24 PM COUNT Reporting Lab: [place] [facility] [address] [place] [facility] [place] [address] Performing Lab: [place] [facility] [address] [place] [facility] [place] [address] CBC NO PLATELETS 159 140 - 360 02/22 Specimen Typ e: BLOOD WHITE DIFF [#/VOLUME] /2020 No comment en tered. [place] IN BLOOD BY Ordering Pr ovider: MILTON UREÑA AUTOMATED Report Releas ed Date/Time: Dec 20, 2020 02:24 PM COUNT Reporting Lab: [place] [facility] [address] [facility] [address] Performing Lab: [place] [facility] [address] [facility] [address] CBC NO PLATELET 13.0 9.2 - 12.4 08/ H Specimen Typ e: BLOOD WHITE DIFF MEAN VOLUME /2020 No comment e ntered. [place] [ENTITIC Ordering Provi adrian: MILTON UREÑA VOLUME] IN Report Relea sed Date/Time: Dec 20, 2020 02:24 PM BLOOD BY Reporting Lab: [place] [facility] AUTOMATED [address] [facility] [address] COUNT Performing Lab: [facility] [facility] [address] [facility] [place] [address] CBC NO ERYTHROCYTE 14.6 12.0 - 02/22 Specimen Typ e: BLOOD WHITE DIFF DISTRIBUTIO 16.0 /2020 No comment e ntered. [place] N WIDTH Ordering Provid er: MILTON UREÑAOC [RATIO] BY Report Relea sed Date/Time: Dec 20, 2020 02:24 PM AUTOMATED Reporting Lab : [place] [facility] COUNT [address] [facility] [address] Performing Lab: [facility] [facility] [address] [facility] [place] [address] CREATININ CREATININE 1.37 0.5 - 1.5 02/22 Specimen Type: PLASMA WHITE E WITH [MASS/VOLUM /2020 Comment: Fo r eGFR: Race unknown, if multiply result by 1.210 Tests performed on [employer] (405) SN:[id number] [place] eGFR E] IN SERUM Ordering Pr ovider: MILTON UREÑAOC PANEL OR PLASMA Report Releas ed Date/Time: Dec 20, 2020 02:24 PM Reporting Lab: [place] [facility] [address] [facility] [address] Performing Lab: [facility] [address] [facility] [address] CREATININ GLOMERULAR 51 60 08/24 L Specimen Ty pe: PLASMA WHITE E WITH FILTRATION /2020 Comment: For eGFR: Race unknown, if multiply result by 1.210 Tests performed on [employer] (405) SN:[id number] [place] eGFR RATE/1.73 Ordering Prov ider: [place] UREÑA [facility] PANEL SQ Report Released Date/Time: Dec 20, 2020 02:24 PM M.PREDICTED Reporting L ab: [facility] [VOLUME [address] [facility] [address] RATE/AREA] Performing L ab: [facility] IN SERUM OR [address] [facility] [address] PLASMA BY CREATININE- BASED FORMULA (MDRD) P4 UREA 20 7 - 25 08/24 Specimen Type: P LASMA ST. GLU,BUN,C NITROGEN /2020 Comment: For eGFR: Race unknown, if multiply result by 1.210 Tests performed on [employer] (405) SN:[id number] IVORY BECKETT [MASS/VOLUM Ordering Provider: GRETCHEN PEREZ CA E] IN SERUM Report Rele ased Date/Time: Feb 22, 2021 10:13 AM OR PLASMA Reporting Lab : [facility] [address] [facility] [address] Performing Lab: [facility] [address] [facility] [address] P4 SODIUM 133 135 - 145 08/24 L Specimen Type: PLASMA ST. GLU,BUN,C [MOLES/VOLU /2020 Comment: For eGFR: Race unknown, if multiply result by 1.210 Tests performed on [employer] (405) SN:[id number] IVORY BECKETT ME] IN Ordering Prov ider: GRETCHEN PEREZ CA SERUM OR Report Release d Date/Time: Feb 22, 2021 10:13 AM PLASMA Reporting Lab: [facility] [address] [facility] [address] Performing Lab: [facility] [address] [facility] [address] P4 POTASSIUM 4.5 3.5 - 5.0 02/22 Specimen Typ e: PLASMA ST. GLU,BUN,C [MOLES/VOLU /2020 Comment: For eGFR: Race unknown, if multiply result by 1.210 Tests performed on [employer] (405) SN:[id number] IVORY BECKETT SD] IN Ordering Prov ider: GRETCHEN PEREZ S,CA SERUM OR Report Release d Date/Time: Feb 22, 2021 10:13 AM PLASMA Reporting Lab: [facility] [address] [place] [facility] [place] [address] Performing Lab: [facility] [address] [facility] [place] [address] P4 CHLORIDE 102 100 - 110 02/22 Specimen Type : PLASMA ST. GLU,BUN,C [MOLES/VOLU /2020 Comment: For eGFR: Race unknown, if multiply result by 1.210 Tests performed on [employer] (405) SN:[id number] IVORY BECKETT SD] IN Ordering Prov ider: GRETCHEN PEREZ S,PRINCESS SERUM OR Report Release d Date/Time: Feb 22, 2021 10:13 AM PLASMA Reporting Lab: [facility] [address] [place] [facility] [place] [address] Performing Lab: [facility] [address] [facility] [place] [address] P4 CARBON 21 - 30 02/22 Specimen Type: P LASMA ST. GLU,BUN,C DIOXIDE, /2020 Comment: For eGFR: Race unknown, if multiply result by 1.210 Tests performed on [employer] (405) SN:[id number] IVORY BECKETT [facility] Ordering Prov ider: GRETCHEN PEREZ S,CA [MOLES/VOLU Report Rele ased Date/Time: Feb 22, 2021 10:13 AM SD] IN Reporting Lab: [facility] SERUM OR [address] [place] [facility] [place] [facility] [place] [address] PLASMA Performing Lab: [facility] [address] [facility] [place] [address] P4 ANION GAP 10 4 - 16 02/22 Specimen Type: PLASMA ST. GLU,BUN,C IN SERUM OR /2020 Comment: For eGFR: Race unknown, if multiply result by 1.210 Tests performed on [employer] (405) SN:[id number] MARCELA NYELYTE PLASMA Ordering Prov ider: GRETCHEN PEREZ CA Report Released Date/Time: Feb 22, 2021 10:13 AM Reporting Lab: [facility] [address] [facility] [address] Performing Lab: [facility] [address] [facility] [address] P4 GLUCOSE 106 65 - 100 08/24 H Specimen Type: PLASMA ST. GLU,BUN,C [MASS/VOLUM /2020 Comment: For eGFR: Race unknown, if multiply result by 1.210 Tests performed on [employer] (405) SN:[id number] MARCELA NYELYTE E] IN SERUM Ordering Provider: GRETCHEN PEREZ CA OR PLASMA Report Rele ed Date/Time: Feb 22, 2021 10:13 AM Reporting Lab: [facility] [address] [facility] [address] Performing Lab: [facility] [address] [facility] [address] P4 CREATININE 1.37 0.5 - 1.5 02/22 Specimen Ty pe: PLASMA ST. GLU,BUN,C [MASS/VOLUM /2020 Comment: For eGFR: Race unknown, if multiply result by 1.210 Tests performed on [employer] (405) SN:[id number] BLAIR BECKETTTE E] IN SERUM Ordering Provider: GRETCHEN PEREZ CA OR PLASMA Report Reletraci ed Date/Time: Feb 22, 2021 10:13 AM Reporting Lab: [facility] [address] [facility] [address] Performing Lab: [facility] [address] [facility] [address] P4 CALCIUM 9.6 8.5 - 10.5 02/22 Specimen Type : PLASMA ST. GLU,BUN,C [MASS/VOLUM /2020 Comment: For eGFR: Race unknown, if multiply result by 1.210 Tests performed on [employer] (405) SN:[id number] MARCELA NYELYTE E] IN SERUM Ordering Provider: ANA,GRETCHEN CBOC S,CA OR PLASMA Report Releas ed Date/Time: Feb 22, 2021 10:13 AM Reporting Lab: [facility] [address] [facility] [address] Performing Lab: [place] [facility] [address] [facility] [address] P4 GLOMERULAR 51 60 02/22 L Specimen Type : PLASMA ST. GLU,BUN,C FILTRATION /2020 Comment: F or eGFR: Race unknown, if multiply result by 1.210 Tests performed on [employer] (405) SN:[id number] MARCELA REIVORY MILLER RATE/1.73 Ordering Pr ovider: GRETCHEN PEREZ CBOC S,CA SQ Report Released Date/Time: Feb 22, 2021 10:13 AM M.PREDICTED Reporting L ab: [facility] [place] [facility] [VOLUME [address] [facility] [address] RATE/AREA] Performing L ab: [facility] IN SERUM OR [address] [facility] [address] PLASMA BY CREATININE- BASED FORMULA (MDRD) LIVER PROTEIN 8.0 6.0 - 8.5 02/22 Specimen Type: PLASMA ST. PROFILE [MASS/VOLUM /2020 Comment: Fo r eGFR: Race unknown, if multiply result by 1.210 Tests performed on [employer] (405) SN:[id number] MARCELA Zhao] IN SERUM Ordering Pr ovider: GRETCHEN PEREZ CBOC OR PLASMA Report Releas ed Date/Time: Feb 22, 2021 10:13 AM Reporting Lab: [facility] [address] [facility] [address] Performing Lab: [facility] [address] [facility] [address] LIVER ALBUMIN 4.0 3.2 - 5.0 02/22 Specimen Type: PLASMA ST. PROFILE [MASS/VOLUM /2020 Comment: Fo r eGFR: Race unknown, if multiply result by 1.210 Tests performed on [employer] (405) SN:[id number] MARCELA E] IN SERUM Ordering Pr ovider: GRETCHEN PEREZ CBOC OR PLASMA Report Releas ed Date/Time: Feb 22, 2021 10:13 AM Reporting Lab: [facility] [address] [facility] [address] Performing Lab: [facility] [address] [facility] [place] [address] LIVER BILIRUBIN.T 0.6 0.2 - 1.2 02/22 Specimen T ype: PLASMA ST. PROFILE OTAL /2020 Comment: For eG FR: Race unknown, if multiply result by 1.210 Tests performed on [employer] (405) SN:[id number] [facility] [MASS/VOLUM Ordering Pr ovider: GRETCHEN PEREZ E] IN SERUM Report Rele ased Date/Time: Feb 22, 2021 10:13 AM OR PLASMA Reporting Lab : [facility] [address] [facility] [address] Performing Lab: [facility] [address] [facility] [address] LIVER ALKALINE 75 40 - 150 02/22 Specimen Type: PLASMA ST. PROFILE PHOSPHATASE Comment: Fo r eGFR: Race unknown, if multiply result by 1.210 Tests performed on [employer] (405) SN:[id number] [facility] [ENZYMATIC Ordering Pro vider: GRECTHEN PEREZ ACTIVITY/VO Report Rele ased Date/Time: Feb 22, 2021 10:13 AM LUME] IN Reporting Lab: [facility] SER[facility] OR [address] [place] [facility] [place] [place] [address] PLASMA Performing Lab: [facility] [address] [facility] [place] [address] LIVER ALANINE 16 7 - 52 02/22 Specimen Type: P LASMA ST. PROFILE AMINOTRANSF Comment: Fo r eGFR: Race unknown, if multiply result by 1.210 Tests performed on [employer] (405) SN:[id number] [facility] ERASE Ordering Provid er: GRETCHEN PEREZ [ENZYMATIC Report Relea sed Date/Time: Feb 22, 2021 10:13 AM ACTIVITY/VO Reporting L ab: [facility] LUME] IN [address] [place] [facility] [place] [address] SERUM OR Performing Lab : [facility] PLASMA [address] [facility] [place] [address] LIVER ASPARTATE 17 5 - 34 02/22 Specimen Type: PLASMA ST. PROFILE AMINOTRANSF Comment: Fo r eGFR: Race unknown, if multiply result by 1.210 Tests performed on [employer] (405) [id number] [facility] ERASE Ordering Provid er: GRETCHEN PEREZ [ENZYMATIC Report Relea sed Date/Time: Feb 22, 2021 10:13 AM ACTIVITY/VO Reporting L [facility]: [facility] IN [address] [facility] [address] SERUM OR Performing Lab : [facility] PLASMA [address] [facility] [place] [address] LIPOPROTE CHOLESTEROL 361 0 - 199 08/24 H Specimen T ype: PLASMA ST. IN [MASS/VOLUM /2020 Comment: Fo r eGFR: Race unknown, if multiply result by 1.210 Tests performed on [employer] (405) SN:[id number] [facility] CHOLESTER E] IN SERUM Ordering Provider: GRETCHEN PEREZ OL FRACT. OR PLASMA Report Rele ased Date/Time: Feb 22, 2021 10:13 AM PANEL Reporting Lab: [facility] [address] [facility] [address] Performing Lab: [facility] [address] [facility] [address] LIPOPROTE TRIGLYCERID 170 0 - 149 08/24 H Specimen T ype: PLASMA ST. IN E Comment: For eG FR: Race unknown, if multiply result by 1.210 Tests performed on [employer] (405) SN:[id number] [facility] [MASS/VOLUM Ordering Provider: GRETCHEN PEREZ OL FRACT. E] IN SERUM Report Re leased Date/Time: Feb 22, 2021 10:13 AM PANEL OR PLASMA Reporting Lab : [facility] [address] [facility] [address] Performing Lab: [facility] [address] [facility] [address] LIPOPROTE CHOLESTEROL 46 40 08/24 Specimen T ype: PLASMA ST. IN IN HDL /2020 Comment: For eG FR: Race unknown, if multiply result by 1.210 Tests performed on [employer] (405) SN:[id number] [facility] CHOLESTER [MASS/VOLUM Ordering Provider: GRETCHEN PEREZ OL FRACT. E] IN SERUM Report Re leased Date/Time: Feb 22, 2021 10:13 AM PANEL OR PLASMA Reporting Lab : [facility] [address] [facility] [address] Performing Lab: [facility] [address] [facility] [address] LIPOPROTE CHOLESTEROL 281 0 - 129 08/24 H Specimen T ype: PLASMA ST. IN IN LDL /2020 Comment: For eG FR: Race unknown, if multiply result by 1.210 Tests performed on [employer] (405) SN:[id number] MARCELA CHOLESTER [MASS/VOLUM Ordering Provider: GRETCHEN PEREZ OL FRACT. E] IN SERUM Report Re leased Date/Time: Feb 22, 2021 10:13 AM PANEL OR PLASMA Reporting Lab : [facility] BY [address] [facility] [address] CALCULATION Performing Lab: [facility] [address] [facility] [address] GLYCOHEMO HEMOGLOBIN 6.2 4.0 - 5.6 08/24 H Specimen Type: BLOOD ST. GLOBIN A1C/HEMOGLO /2020 Comment: Te sts performed on [employer] (405) SN:[id number] MARCELA (A1C BIN.TOTAL Ordering Prov ider: GRETCHEN PEREZ ONLY) IN BLOOD BY Report Rele ased Date/Time: Feb 22, 2021 10:13 AM HPLC Reporting Lab: [facility] [address] [facility] [address] Performing Lab: [facility] [address] [facility] [address] VITAMIN COBALAMIN 312 200 - 900 08 Specimen Typ e: SERUM ST. B-12 (VITAMIN /2020 Comment: Tests performed on [employer] (405) SN:[id number] [facility] B12) Ordering Provid er: GRETCHEN PEREZ [MASS/VOLUM Report Rele ased Date/Time: Feb 22, 2021 10:13 AM E] IN SERUM Reporting L ab: [facility] OR PLASMA [address] [facility] [address] Performing Lab: [facility] [address] [facility] [address] TSH THYROTROPIN 3.14 0.35 - 02/22 Specimen Typ e: SERUM ST. [UNITS/VOLU 5.00 Comment: Te sts performed on [employer] (910) SN:[id number] [facility]] IN Ordering Provid er: GRETCHEN PEREZ SERUM OR Report Release d Date/Time: Feb 22, 2021 10:13 AM PLASMA Reporting Lab: [facility] [address] [facility] [address] Performing Lab: [facility] [address] [facility] [address] Encounters Combined list of: 1) Encounters from Department of Veterans Affairs facilities going back up to the last 18 months. 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 Location Location Encounter Encounter Reason Attending ADM DC Stat us Disposition Source Details Type Number For Provider Date Date Visit Outpatient 97827-4.40 11/11 WHIT E Encounter [id number] /2020 [facility] 32879-0.40 11/11 [facility] Encounter [id number] /[facility] 14993-0.40 11/11 [facility] Encounter [id number] /2020 [facility] 18618-1.40 12/13 WH[facility] E Encounter [id number] /[address] [facility] 91121-1.40 Diagnos ADELITA, 12/20 W JIMBO PHONE CALL [id number] is: MILTON B R IVER 11-20 MIN ICD-10- JCT CM [facility] Z79.01 senior care (curren t) use of anticoa gulants
wi Provide r Comment s: Long-te rm current use of anticoa gulant (SCT 9345522 03) Outpatient [id number] 02/22 WHIT E Encounter [id number] [facility] OFF[facility] O[facility]P 17773-3.40 Diagnos SÁNCHEZ PEREZ 02/22 ST. EST MOD [id number] is: MOSES /2020 JOHNSBU 30-39 MIN 29 ICD-10- RY [facility]OC CM I25.10 Athscl heart disease of [place] coronar y artery w/o ang pctrs<b r/>with Provide r Comment s: Atheros cleroti c Heart Disease of [place] Coronar y Artery without Angina Pectori s Outpatient 02/24 WHIT E Encounter [id number] /[place] [address]-7. 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
wi Provide r Comment s: Long-te rm current use of anticoa gulant (SCT 4902502 ) Outpatient 40 03/02 WHIT E Encounter [id number] [facility] COMPREHENS 17213-3.40 Diagnos RADHA, 04/12 ST. ELA [id number] is[facility] ICD-10- RY [facility] TEST CM H90.3 Sensori neural hearing loss, bilater al
with Provide r Comment s: Asymmet rical sensori neural hearing loss (SNOMED CT 2655810 09) Outpatient 04/15 WHIT E Encounter [id number] /2021 [facility] OFFICE O/P 44206-0.40 Diagnos PETTIGLIO, 04/28 ST. EST [id number] is: SAMMY A JOHNSB U MINIMAL 02 ICD-10- RY CBOC PROB CM Z23 Encount er for immuniz ation<b r/>with Provide r Comment s: Encount er for Immuniz ation HC PRO 48591-4.40 Diagnos NICOLA LEONE 04/29 W JIMBO PHONE CALL [id number] is: AN RIVE R 11-20 MIN ICD-10- JCT CM [facility] Z79.01 senior care (curren t) use of anticoa gulants
wi th Provide r Comment s: Long-te rm current use of anticoa gulant (SCT 1178121 ) Outpatient [id number] 07/04 WHIT E Encounter [id number] [facility] Social History Combined list of available smoking, tobacco, and other social history [facility]. Social History Response Date Comment Source Type Tobacco smoking VA-TOBACCO FORMER 02/22/2021 [facility]OC status NHIS USER History of tobacco VA-TOBACCO QUIT 1 02/22/2021 [facility]OC use TO < 5 YRS History of tobacco VA-TOBACCO FORMER 03/04/2020 [facility] CBOC use USER History of tobacco VA-TOBACCO USE 03/21/2018 [facility] use TOUR ESCORT NO History of tobacco CURRENT SMOKER 01/16/2018 [facility] use History of tobacco CURRENT SMOKER 03/28/2017 [facility] VA use CLINIC History of tobacco CURRENT SMOKER 04/17/2016 smokes about half [facility] use a pack a day History of tobacco CURRENT SMOKER 04/22/2015 smokes about half [facility] use a pack a day Advance Directives List of completed, amended, or rescinded Advance Directives on record at Department of Veterans Affairs facilities. An actual copy of the Directive is not included. Date Advance Directive Provider Source 01/15/2019 ADVANCE DIRECTIVE DISCUSSION STEPHANIE HERNANDEZ [facility]
--- OUTSIDE RECORDS SUMMARY | 2022-04-27 11:05 | XMS_ITS | Clinical Summary ---
:1945 Author Organization [facility] Address [address] [place] [address] Care Team Providers Name Role Phone SuwanneeJennifer vega Bunny STUMPER FELLER Primary Care Provider Encounters Date Type Specialty Care Team Description 04/24/2022 Lab Requisition Clinical Laboratory Outr Resulting Lab , Provider 02/15/2022 Lab Requisition Clinical Laboratory Outr Resulting [...] are i n the results section . T3 FREE Routine 02/15/2022 10:37 EDT Results for this procedure are i n the results section . from Last 3 Months Results T3 FREE (04/24/2022 11:50 EDT)Only the most recent of2 resultswithin the time period is included. Pathologist Sig nature T3, Free 2.8 2.8 - 5.3 pg/mL [facility] Specimen Blood - Venous blood (substance) Performing Organization Address City/State/ZIP Code Phon e Number [facility] [address] [place] [address] SERVICES from Last 3 Months Insurance Payer Benefit Plan Subscriber ID Effective Phone Address Typ e / Group Dates M[employer]UAL OF MUTUAL OF [id number] 2018-Prese [id number] [place] [address] MEDICARE MEDICARE A/B [id number] 2011-Pres [address] Medicare GL ent [id number] [place] [address] (Work) Jovany Hi Personal/Family Self [address] (Home) [facility] [address] (Work) Jovany Hi Personal/Family Self [address] (Home) [place] [address] (Work) Jovany Hi Personal/Family Self [address] (Home) [place] [address] (Work) Jovany Hi Personal/Family Self [address] (Home) [place] [address] (Work) Care Teams Telecommunications Cable Jointer Relationship Specialty Start Date End Date Jennifer Gomez NP PCP - General 05/10/15 [facility] [address] [facility] [place] [phone]
--- OUTSIDE RECORDS SUMMARY | 2022-04-27 11:05 | XMS_ITS | Encounter Summary ---
:[address] [facility] Address [address] [place] [address] Care Team Providers Name Role Phone Jennifer Gomez PARKS AND RECREATION MANAGER Primary Care Provider Encounter Details Date Type Department Care Team Description 09/07/2020 Lab Requisition [facility] Outr Resulting Lab, Pathology & Laboratory Provider [facility] [address] [place], [place] [address] Social History Tobacco Use Types Packs/Day Years [...] [facility] [address] [place] [address] SERVICES COVID-19 TESTING (09/07/2020 9:45 EST) COVID-19 rt-PCR Negative Negative [facility] Result Comment: CENTER [facility] This [...] defined by the FDA Performed on the Netpulseo 7 Pro RT-PCR System. Performing Lab [facility] Lab [facility] Specimen Swab Performing Organization Address City/State/ZIP Code Phon e Number [facility] [address] [place] [address] SERVICES documented in this encounter Visit Diagnoses Not on filedocumented in this encounter Care Teams Die Sinking Machine Operator Relationship Specialty Start Date End Date Jennifer Gomez NP PCP - General 05/10/15 [facility] [address] [place], [place] [address] documented as of this encounter
--- OUTSIDE RECORDS SUMMARY | 2022-04-27 11:05 | XMS_ITS | Encounter Summary ---
:1945 Author Organization [facility] Address [address] [place] [address] Care Team Providers Name Role Phone Jennifer Gomez MECHANICAL SOUND TECHNICIAN Primary Care Provider Encounter Details Date Type Department Care Team Description 02/15/2022 Lab Requisition [facility] Outr Resulting Lab, Pathology & Laboratory Provider [facility] [address] [place], [place] [address] Social History Tobacco Use Types Packs/Day Years [...] Free 9.3 (H) 2.8 - 5.3 pg/mL [facility] Specimen Blood - Venous blood (substance) Performing Organization Address City/State/ZIP Code Phon e Number [facility] [address] [place] [address] SERVICES documented in this encounter Visit Diagnoses Not on filedocumented in this encounter Care Teams Skidder Driver Relationship Specialty Start Date End Date Jennifer Gomez, MECHANICAL SOUND TECHNICIAN PCP - General 05/10/15 [facility] [address] [place], [place] [id number] documented as of this encounter
--- OUTSIDE RECORDS SUMMARY | 2022-04-27 11:05 | XMS_ITS | Encounter Summary ---
:1945 Author Organization [facility] Address [address] [place] [address] Care Team Providers Name Role Phone Jennifer Gomez DRIVER MEDIC Primary Care Provider Encounter Details Date Type Department Care Team Description 01/25/2022 Lab Requisition [facility] Outr Resulting Lab, Pathology & Laboratory Provider [facility] [address] [place], [place] [address] Social History Tobacco Use Types Packs/Day Years [...] Sig nature Salmonella PCR Negative Negative [facility] Shigella/Enteroinvasive Negative Negative [facility] HN LAB CAMPYLOBACTER PCR Negative Negative [facility] Shiga Toxin PCR Negative Negative [facility] Specimen Feces - Specimen from rectum (specimen) Performing Organization Address City/State/ZIP Code Phon e Number [facility] [address] [place] [address] SERVICES documented in this encounter Visit Diagnoses Not on filedocumented in this encounter Care Teams Sales And In Home Delivery Specialist Relationship Specialty Start Date End Date Jennifer Gomez, DRIVER MEDIC PCP - General 05/10/15 [facility] [address] [place], [place] [id number] documented as of this encounter
--- OUTSIDE RECORDS SUMMARY | 2022-04-27 11:06 | XMS_ITS | Encounter Summary ---
:1945 Author Organization [facility] Address [address] [place] [address] Care Team Providers Name Role Phone Jovany Lott MD Primary Care Provider Encounter Details Date Type Department Care Team Description 03/10/2022 Ancillary Procedure Radiology Library at Jovany Lott MD [facility] [address] [facility] [address] [place] [address] [phone] Social History Tobacco Use Types Packs/Day Years [...] Organization Address City/State/ZIP Code Phon e Number [place], [place] documented in this encounter Visit Diagnoses Not on filedocumented in this encounter Care Teams Literature Professor Relationship Specialty Start Date End Date Jovany Lott MD PCP - General Family Medicine 02/05/20 [address] [place] [address] documented as of this encounter
--- OUTSIDE RECORDS SUMMARY | 2022-04-27 11:06 | XMS_ITS | Encounter Summary ---
:1945 Author Organization [facility] Address [place] [address] Care Team Providers Name Role Phone Jovany Lott MD Primary Care Provider Encounter Details Date Type Department Care Team Description 10/08/2020 Telephone Cardiology at [facility] Faustino Garduno [place] [address] [place] [address] [phone] (Wo rk) Social History Tobacco Use Types [...] with Dr. Chou, his provider via the [place] (see my prior clinic note). His case was reviewed by our Watchman (left atrial appendage closure team). He has anatomy that would be conducive to closure, should he wish to pursue this for stroke prevention and ability to be off anticoagulation intermediate. Left message for callback to our Structural Program (contact Willow Callejas APRN). If he is interested, I would be happy to offerscheduling for him. Faustino Garduno MD Pager [phone] documented in this encounter Plan of Treatment Not on filedocumented as of this encounter Visit Diagnoses Not on filedocumented in this encounter Care Teams Esthetician/Owner Relationship Specialty Start Date End Date Jovany Lott MD PCP - General Family Medicine 02/05/20 [address] [place] [address] documented as of this encounter
--- OUTSIDE RECORDS SUMMARY | 2022-04-27 11:06 | XMS_ITS | Encounter Summary ---
:1945 Author Organization [facility] [address] Care Team Providers Name Role Phone France Lam MD Primary Care Provider Encounter Details Date Type Department Care Team Description 01/09/2020 TH Visit Neurology at [facility] Efrain Nicole, Intracranial hemorrhage; (TeleHealth) [facility] ESTEFANY Tobacco abuse; [facility] Cerebrovascular accident (CV A) due to embolism of right posterior cerebral artery [facility] [address] NEUROLOGY [phone] [place] [address] Social History Tobacco Use Types Packs/Day Years Used Date Current Every Day Smoker Cigars 0.5 Sex Assigned at Date Recorded Not on file documented as of this encounter Progress Notes Efrain Nicole PA - 01/09/2020 9:00 AM EDT Cerebro[facility] Disease [facility] Stroke Program [place] [address] t: [phone] / f: [phone] TELEPHONE ENCOUNTER Date of Appointment: 01/09/2020 I [...] cardiology - had f/u head CT at [facility] which was stable with resolving known hemorrhage - has not resumed smoking -has been in touch with Dr. Sanchez for Watchman, deferred for duration of anticoagulation for PE Modified [place] Scale (MRS) 0: No symptoms at all [...] -advised vision/eye exam with his local provider ([facility]); consider referral to neuro-ophthalmology here in future [...] artery documented in this encounter Care Teams Energy Conservation Technician Relationship Specialty Start Date End Date France Lam MD PCP - General 05/02/13 02/04/20 [address] [place] [address] documented as of this encounter
--- OUTSIDE RECORDS SUMMARY | 2022-04-27 11:06 | XMS_ITS | Encounter Summary ---
:[address] [facility] Address [address] [place] [address] Care Team Providers Name Role Phone Unavailable Primary Care Provider Unavailable Encounter Details Date Type Department Care Team Description 09/02/2003 Results Only [facility] Patel MD conversion [address] [facility] [address] [place] [address] [place] [address] (Wo rk) Social History Tobacco Use Types [...] ANGEL LUIS SALINAS ? Accession #: ? [id number] ? : ? 1945 (Age: 58) ??M [...] of the lesion is recommended. ?? (Dr. Mascorro)/[facility] Microscopic Description: ? The epidermis is hype [...] and cords of similar melanocytes that show educational interpreter maturation with descent. ??There is papillary dermal fibroplasia. ??(Dr. Mascorro)/[facility] Document reviewed and electronically signed by: Mai [...] entirely submitted in one cassette. ??(Dr Stephany Amador)/[facility] End of Report Specimen Performing Organization Address City/State/ZIP Code Phon e Number [facility] [address] [place] [address] SERVICES [facility] [address] [place] [address] documented in this encounter Visit Diagnoses Not on filedocumented in this encounter
--- OUTSIDE RECORDS SUMMARY | 2022-04-27 11:06 | XMS_ITS | Encounter Summary ---
:1945 Author Organization [facility] Address [address] [place] [address] Care Team Providers Name Role Phone Jovany Lott MD Primary Care Provider Encounter Details Date Type Department Care Team Description 08/31/2020 TH Visit Cardiology at [facility] Faustino Garduno Atrial fibrillation, unspeci fied type (Primary Dx); (TeleHealth) [facility] MD Jaquan Acute ST elevation myocardial infarction (STEMI) of inferior wall; [facility] Acute systolic CHF (congesti ve heart failure), NYHA class 3, MILVIA/AHA stage C; [place], [place] Center Hyperlipidemia, unspecified hyperlipidem ia type; [address] [place], [place] Intracranial hemorrhage; [phone] [address] PFO (patent foramen ovale); [phone] Claudication fr om peripheral vascular disease, left [...] with ICH, bilateral PE; paroxysmal atrial fibrillation [[id number]: 5]; PAD; HLD; HTN; smoking and PFO,who [...] appointment with Dr. Faustino Chou at the [facility]. However, he has not grossly noted [...] a non-culprit artery. S/P DESx3 in the jopaxwgj-wj-riraiv RCA. Aspiration thrombectomy performed, and integrellin bolus [...] with ICH, bilateral PE; paroxysmal atrial fibrillation [[id number]: 5]; PAD; HLD; HTN; smoking and PFO, [...] Will also discuss further with his local patrol mother, Dr. Mejia. 3. Bilateral PE - Case discussed with Dr. Sanchez above; likely provoked in lieu of his prolonged hospitalization. He has completed at least 6 months of oral A/C (coinciding treatment for his afib). 4. PAD - Continue optimal medical therapy for now. Will place referral for SET/walking program. F/U 3 months Faustino Garduno MD Time spent: 35 minutes Addendum 09/13/20: Called [phone] or [phone] and was able to speak to Dr. Faustino Chou. Pt also sees Dr. Lott in [facility] for local primary care needs. Dr. Chou [...] unspecified documented in this encounter Care Teams Police Sergeant Precinct Relationship Specialty Start Date End Date Jovany Lott MD PCP - General Family Medicine 02/05/20 Con[place] [address] documented as of this encounter
--- OUTSIDE RECORDS SUMMARY | 2022-04-27 11:06 | XMS_ITS | Encounter Summary ---
:1945 [place] [address] Care Team Providers Name Role Phone France Lam MD Primary Care Provider Encounter Details Date Type Department Care Team Description 12/08/2019 Orders Only Neurosurgery at [facility] Natalia Delong, Intracranial [facility] [place] [address] Social History Tobacco Use Types Packs/Day Years Used Date Current Every Day Smoker Cigars 0.5 Sex Assigned at Date Recorded Not on file documented as of this encounter Plan of Treatment Not on filedocumented as of this encounter Visit Diagnoses Diagnosis Intracranial hemorrhage Unspecified intracranial hemorrhage documented in this encounter Care Teams Art Objects Repairer Relationship Specialty Start Date End Date France Lam MD PCP - General 05/02/13 02/04/20 [address] [place] [address] documented as of this encounter
--- OUTSIDE RECORDS SUMMARY | 2022-04-27 11:06 | XMS_ITS | Encounter Summary ---
:1945 Author Organization [facility] [place] [address] Care Team Providers Name Role Phone France Lam MD Primary Care Provider Encounter Details Date Type Department Care Team Description 12/23/2019 TH Visit Neurosurgery at [facility] Alfreda Salas Intracranial (TeleHealth) [facility] C, SCHOOL PSYCHOLOGICAL EXAMINER [place] [address] Center [phone] [place] [address] Social History Tobacco Use Types Packs/Day Years Used Date Current Every Day Smoker Cigars 0.5 Sex Assigned at Date Recorded Not on file documented as of this encounter Progress Notes Alfreda Salas C, SCHOOL PSYCHOLOGICAL EXAMINER - 12/23/2019 1:30 PM EDT Images from [...] [address] up [address] at [facility], showing slight decrease in size [...] 3-4 weeks which may be done at [facility] with follow up TOV [facility]. Head CT 12/18/19 Assessment and [...] hemorrhage documented in this encounter Care Teams Furniture Builder Relationship Specialty Start Date End Date France Lam MD PCP - General 05/02/13 02/04/20 [address] [place] [address] documented as of this encounter
--- OUTSIDE RECORDS SUMMARY | 2022-04-27 11:06 | XMS_ITS | Encounter Summary ---
:1945 Author Organization [facility] [place] [address] Care Team Providers Name Role Phone France Lam MD Primary Care Provider Encounter Details Date Type Department Care Team Description 12/08/2019 Telephone Neurosurgery [place] [facility] [place] [address] Social History Tobacco Use Types Packs/Day Years Used Date Current Every Day Smoker Cigars 0.5 Sex Assigned at Date Recorded Not on file documented as of this encounter Miscellaneous Notes Telephone Encounter - Elza Bradshaw - 12/22/2019 6:[address] in [facility] Telephone Encounter - Elza Bradshaw - 12/18/2019 3:43 PM EDT Left message at [facility] requesting they call back to advise if patient has been scheduled for CT. Telephone Encounter - Sarah Boucher - 12/08/2019 3:[address] order to [facility] to schedule, 12/16-12/18 for 12/22 TOV scheduled w/[facility] Telephone Encounter - Sarah Boucher - 12/08/2019 9:50 AM EDT RN, please put in CT order external=[facility] Pt's called not able to come to [facility] on 12/[address] requested to have CT locally at [facility] call w/results. documented in this encounter Plan of Treatment Not on filedocumented as of this encounter Visit Diagnoses Not on filedocumented in this encounter Care Teams Pole Shaver Helper Relationship Specialty Start Date End Date France Lam MD PCP - General 05/02/13 02/04/20 [address] [place] [address] documented as of this encounter
--- OUTSIDE RECORDS SUMMARY | 2022-04-27 11:06 | XMS_ITS | Encounter Summary ---
:1945 Author Organization [facility] [place] [address] Care Team Providers Name Role Phone France Lam MD Primary Care Provider Encounter Details Date Type Department Care Team Description 12/24/2019 Telephone [place] [facility] Cathy Jay [facility] [place] [address] Social History Tobacco Use Types Packs/Day [...] CT on 12/28. Faxed push request to [facility] Telephone Encounter - Elza Bradshaw - 12/25/2019 11:50 AM EDT Called [employer] [facility]iana Aleman sales representative printing I spoke with patient has plan N and does not require authorization. Order faxed with demos to [facility]. Postponing to allow time for scheduling. Telephone Encounter - Cathy Jay - 12/24/2019 11:42 AM EDT Patient needs f/u appointment(s): With [facility] on/around 01/13 3 weeks TOV, s/p Intracranial hemorrhage, [facility] prior 1. [employer] [place]? ~~~~~~~~~~~~~~~~~~~~~~~~~~~~~~~~~~~~~~~~~~~~~~~~~~~~~~ Alfreda Salas APRN Sent: Maria Victoria December 23, 2019 ??7:39 PM To: P [facility] Neurosurgery Parts Representative Jovany Hi ( ) : 1945> ?? Follow-up and Dispositions Check-out Note: Follow up head CT and TOV in 3 weeks unless vision worsens or he develops new symptoms in meantime ([facility] for CT) documented in this encounter Plan of Treatment Not on filedocumented as of this encounter Visit Diagnoses Not on filedocumented in this encounter Care Teams Chief Drafter Relationship Specialty Start Date End Date France Lam MD PCP - General 05/02/13 02/04/20 [address] [place] [address] documented as of this encounter
--- OUTSIDE RECORDS SUMMARY | 2022-04-27 11:06 | XMS_ITS | Encounter Summary ---
:1945 [place] [address] Care Team Providers Name Role Phone France Lam MD Primary Care Provider Encounter Details Date Type Department Care Team Description 12/29/2019 Ancillary Procedure Radiology Library at Ivette Salas [facility] STEPHANIE [facility] [place] [address] [place] [address] [phone] (Wo rk) Social History Tobacco Use Types [...] is for storage only. Alfreda Salas APRN [facility] FILM LIBRARY ORDERABLES Performing Organization Address City/State/ZIP Code Phon e Number [place], [place] documented in this encounter Visit Diagnoses Not on filedocumented in this encounter Care Teams Geospatial Applications Developer Relationship Specialty Start Date End Date France Lam MD PCP - General 05/02/13 02/04/20 [address] [place] [address] documented as of this encounter
--- OUTSIDE RECORDS SUMMARY | 2022-04-27 11:06 | XMS_ITS | Encounter Summary ---
:1945 Author Organization [facility] [place] [address] Care Team Providers Name Role Phone Jovany Lott MD Primary Care Provider Reason for Visit Consultation (Routine) - Closed Specialty Diagnoses / Procedures Referred By Contact Refer red To Contact Cardiology Diagnoses ST elevation (STEMI) myocardial infarction of unspecified site Hyperlipidemia, unspecified PeriDawit muhammad MD [place] [address] [place] [address] [place] CARDIOLOGY D EPT [address] [place] [address] Fax: Referral ID Status Reason Start Date Expiration Date Visits V isits Requested Authorized [id number] Closed Consult, Test 02/10/2020 02/09/2021 [facility] PCP Updated and/or Approved Encounter Details Date Type Department Care Team Description 03/12/2020 TH Visit Cardiology at [facility] Melina Payan Fredrickson type IIa hyperli poproteinemia; (TeleHealth) [facility] Hyperglycemia; [facility] Elevated TSH; [facility] Hypothyroidism, acquired [id number] CARDIOLOGY DEPT [phone] [place], [place] [address] Social History Tobacco Use Types Packs/Day Years Used Date Former Smoker Cigars 0.5 Quit: 11/29/19 20 Smokeless Tobacco: Former User Comments: Quit chew tobacco years and y ears ago Sex Assigned at Date Recorded Not on file documented as of this encounter Progress Notes Melina Payan MD - 03/12/2020 1:00 PM EDT [facility]--Initial Consultation [...] Social History: 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 [...] medications for this visit. Allergies Penicillins and Etpczmo-mby-srk reductase inhibitors Physical Exam not performed telehealth Assessment Jovany is a very high risk 75-year-old man who suffered a STEMI complicated by A. fib, cardiogenic shock, and a CVA. He has multiple cardiovascular risk factors including peripheral artery disease, hyperlipidemia (elevated LDL, depressed HDL), a 50-lkjp-bmtu history of smoking, and prediabetes. Jovany quit [...] but Jovany replied: I can't drive to [place] 2 weeks for that. I explained [...] hypothyroidism documented in this encounter Care Teams Logger Driving Horses Relationship Specialty Start Date End Date Jovany Lott MD PCP - General Family Medicine 02/05/20 [place] [address] documented as of this encounter
--- OUTSIDE RECORDS SUMMARY | 2022-04-27 11:06 | XMS_ITS | Clinical Summary ---
:1945 Author Organization [facility] [place] [address] Care Team Providers Name Role Phone Jovany Lott MD Primary Care Provider Allergies Active Allergy Reactions Severity Noted Date Comments Penicillins 05/13/2013 Pt doesn't gely mber reaction Jnfprvg-Lxl-Pnp Reductase 05/13/2013 St iff neck, upset stomach, [...] Address City/State/ZIP Code Phon e Number RAD [place], [place] from Last 3 Months Insurance Payer Benefit Plan / Subscriber ID Effective Dates Phone Addre ss Type Group MEDICARE MEDICARE PART [id number] 2019-Prese [phone] [place] [address] [place] [id number] 2018-Presen [employer] [place] [id number] Advance Directives Latest Code Status on File [...] capacity to make decision: Yes Care Teams Collision Estimator Relationship Specialty Start Date End Date Jovany Lott MD PCP - General Family Medicine 02/05/20 [address] [place] [phone]
--- OUTSIDE RECORDS SUMMARY | 2022-04-27 11:06 | XMS_ITS | Encounter Summary ---
:1945 Author Organization [facility] Address [address] [place] [address] Care Team Providers Name Role Phone France Lam MD Primary Care Provider Encounter Details Date Type Department Care Team Description 12/18/2019 Ancillary Procedure Radiology Library at Debi Lam [facility] [address] [place] [id number] [place] [address] [phone] Social History Tobacco Use Types Packs/Day Years [...] is for storage only. France Lam MD [facility] [place] [place] FILM LIBRARY ORDERABLES Performing Organization Address City/State/ZIP Code Phon e Number [place], [place] documented in this encounter Visit Diagnoses Not on filedocumented in this encounter Care Teams Security Compliance Engineer Relationship Specialty Start Date End Date France Lam MD PCP - General 05/02/13 02/04/20 [address] [place] [address] documented as of this encounter
--- OUTSIDE RECORDS SUMMARY | 2022-04-27 11:06 | XMS_ITS | Encounter Summary ---
:1945 Author Organization [facility] [place] [address] Care Team Providers Name Role Phone France Lam MD Primary Care Provider Reason for Visit Reason Onset Date Comments TeleHealth 12/22/2019 Appt 12/23/19 Encounter Details Date Type Department Care Team Description 12/22/2019 Telephone Neurosurgery at [facility] Alfreda Salas TeleHealth (Appt [facility] Devin Sebastian, LOBSTER MAN 12/23/19) [place] [address] [place] [address] [place] [address] Social History Tobacco Use Types Packs/Day [...] on filedocumented in this encounter Care Teams Doctor Of Nurse Anesthesia Relationship Specialty Start Date End Date France Lam MD PCP - General 05/02/13 02/04/20 [address] [place] [address] documented as of this encounter
--- OUTSIDE RECORDS SUMMARY | 2022-04-27 11:06 | XMS_ITS | Encounter Summary ---
:1945 Author Organization [facility] [place] [address] Care Team Providers Name Role Phone Jovany Lott MD Primary Care Provider Encounter Details Date Type Department Care Team Description 11/10/2020 Telephone [facility] [place] [facility] [place] [address] Social History Tobacco Use Types Packs/Day [...] on filedocumented in this encounter Care Teams Medicine Worker Relationship Specialty Start Date End Date Jovany Lott MD PCP - General Family Medicine 02/05/20 [place] [id number] documented as of this encounter
--- OUTSIDE RECORDS SUMMARY | 2022-04-27 11:06 | XMS_ITS | Encounter Summary ---
:1945 Author Organization [facility] [place] [address] Care Team Providers Name Role Phone Jovany Lott MD Primary Care Provider Reason for Visit Reason Onset Date Comments Follow-up 06/15/2020 Tobacco Treatment Encounter Details Date Type Department Care Team Description 06/15/2020 Telephone Vascular Surgery at Ryan Tran-melvin (Tobacco [facility] Sukumar, RN Treatment) [place] [address] Social History Tobacco Use Types Packs/Day [...] updated. Ryan Tran, MSN, RN-BC, NCTTP Tobacco Supervisor Sleeping Bag Department [facility] Pager #[phone] documented in this encounter Plan of Treatment Not on filedocumented as of this encounter Visit Diagnoses Not on filedocumented in this encounter Care Teams Organic Lab Worker Relationship Specialty Start Date End Date Jovany Lott MD PCP - General Family Medicine 02/05/20 [place] [address] documented as of this encounter
--- OUTSIDE RECORDS SUMMARY | 2022-04-27 11:06 | XMS_ITS | Encounter Summary ---
:1945 Author Organization [facility] Address [address] [place] [address] Care Team Providers Name Role Phone France Lam MD Primary Care Provider Reason for Visit Reason Onset Date Comments TeleHealth 01/08/2020 Appt 01/09/20 Encounter Details Date Type Department Care Team Description 01/08/2020 Telephone Neurology at [facility] Efrain Nicole PA TeleHealth (Appt [facility] 12/[address] ) [place] [address] NEUROLOGY [phone] [place], [place] [address] (Wo rk) Social History Tobacco [...] on filedocumented in this encounter Care Teams Engineering Design Manager Relationship Specialty Start Date End Date France Lam MD PCP - General 05/02/13 02/04/20 [address] [place] [address] documented as of this encounter
--- OUTSIDE RECORDS SUMMARY | 2022-04-27 11:06 | XMS_ITS | Encounter Summary ---
:1945 Author Organization [facility] [place] [address] Care Team Providers Name Role Phone France Lam MD Primary Care Provider Reason for Visit Reason Onset Date Comments TeleHealth 01/12/2020 Encounter Details Date Type Department Care Team Description 01/12/2020 Telephone Neurosurgery at [facility] Alfreda Salas, TeleHealth [facility] [place] [address] [facility] [phone] [place], [place] [address] (Wo rk) Social History Tobacco [...] on filedocumented in this encounter Care Teams Cigarette Maker Relationship Specialty Start Date End Date France Lam MD PCP - General 05/02/13 02/04/20 [address] [place] [address] documented as of this encounter
--- OUTSIDE RECORDS SUMMARY | 2022-04-27 11:06 | XMS_ITS | Encounter Summary ---
:1945 Author Organization [facility] Address [facility] [address] [place] [address] Care Team Providers Name Role Phone France Lam MD Primary Care Provider Encounter Details Date Type Department Care Team Description 12/26/2019 TH Visit Cardiology at [facility] Merlin Sanchez V, Claudication from peripheral vascular disease, left ; (TeleHealth) 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 [phone] [place] [address] Social History Tobacco Use Types Packs/Day Years [...] best is to differ this conversation until correction OAC strategy has been set. Specifically, if this is being treated as a provoked dvt/pe, then would re-evaluate to coordinated with OAC discontinuation. I discussed the above findings with the patient and his both of whom appear to understand and is in agreement with the plan going forward. Merlin Sanchez M.D., F.A.C.C. aeronautics commission director Pager 2020 >50% of the 15 minute [...] failure documented in this encounter Care Teams Ediphone Operator Relationship Specialty Start Date End Date France Lam MD PCP - General 05/02/13 02/04/20 [address] [place] [address] documented as of this encounter
--- OUTSIDE RECORDS SUMMARY | 2022-04-27 11:06 | XMS_ITS | Encounter Summary ---
:1945 Author Organization [facility] Address [address] [place] [address] Care Team Providers Name Role Phone Jennifer Gomez SKEIN INSPECTOR Primary Care Provider Encounter Details Date Type Department Care Team Description 03/19/2019 Results Only [facility] Angel Luis Lott MD [phone] [address] [place], [place] [id number] (Wo rk) Social History Tobacco Use Types [...] ANGEL LUIS HI ? Accession #: ? [id number] ? : ? 1945 (Age: 8 3) [...] Organization Address City/State/ZIP Code Phon e Number [facility] [address] [place] [address] SERVICES documented in this encounter Visit Diagnoses Not on filedocumented in this encounter Care Teams Canvassing Manager Relationship Specialty Start Date End Date Jennifer Gomez NP PCP - General 05/10/15 [facility] [address] [place], [place] [id number] documented as of this encounter
--- OUTSIDE RECORDS SUMMARY | 2022-04-27 11:06 | XMS_ITS | Encounter Summary ---
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 S/P DESx3 in the okgoqefe-kq-ccqvdf RCA. Aspiration thrombectomy performed, and integrellin bolus [...] with ICH, bilateral PE; paroxysmal atrial fibrillation [[id number]: 5]; PAD; HLD; HTN; smoking and PFO, who presents for post-discharge cardiovascular follow-up. CV issues are currently stable. Plan 1. CAD - CCS Class 0. Recovering well. He has completed 1 month of triple therapy. He may stop his aspirin, and resume clopidogrel and apixaban. Starting cardiac rehab. He wishes to pursue PCSK9 referral via the [place]. 2. Afib - CHADS2-vasc 5, presently [...] 6 months Faustino Garduno MD Time spent: [id number] 0-5min 9986CWH9 6-10min 1870PWM1 11-15min 5021IKL1 16-20min XXXX 5454QLR7 21-30min 0240WZR8 31-40min 2082UNP2 40+ min documented in this encounter Plan [...] type documented in this encounter Care Teams Lineman Relationship Specialty Start Date End Date France Lam MD PCP - General 05/02/13 02/04/20 [address] [place] [address] documented as of this encounter
--- OUTSIDE RECORDS SUMMARY | 2022-04-27 11:06 | XMS_ITS | Encounter Summary ---
:1945 Author Organization [facility] Address [address] [place] [address] Care Team Providers Name Role Phone Unavailable Primary Care Provider Unavailable Encounter Details Date Type Department Care Team Description 09/15/2003 Results Only [facility] - Otis Patel MD conversion [address] [facility] [address] [place] [address] [place] [address] (Wo rk) Social History Tobacco Use Types [...] ANGEL LUIS SALINAS ? Accession #: ? [id number] ? : ? 1945 (Age: 58) ??M ? Collect Date: ? 09/15/2003 ? Location: ? [facility] ? Receive Date: ? 004 ? Provider: OTIS MOSS MD Copy to: MALCOM MCGEE CREDIT CARD INTERVIEWER ? Final Pathologic Diagnosis: ? Skin of [...] Organization Address City/State/ZIP Code Phon e Number [facility] [address] [place] [address] SERVICES [facility] [address] [place] [address] documented in this encounter Visit Diagnoses Not on filedocumented in this encounter
--- OUTSIDE RECORDS SUMMARY | 2022-04-27 11:06 | XMS_ITS | Encounter Summary ---
:1945 Author Organization [facility] [place] [address] Care Team Providers Name Role Phone Jovany Lott MD Primary Care Provider Encounter Details Date Type Department Care Team Description 10/05/2020 Notes Only Cardiology Merlin Sanchez [place] [address] CARDIOLOGY DEPT. [phone] [place], [place] [address] (Wo rk) Social History Tobacco [...] FLX Merlin Sanchez MD [facility] Pager 2020 documented in this encounter Plan of Treatment Not on filedocumented as of this encounter Visit Diagnoses Not on filedocumented in this encounter Care Teams Water Fitness Instructor Relationship Specialty Start Date End Date Jovany Lott MD PCP - General Family Medicine 8/6/20 [address] [place] [address] documented as of this encounter
--- OUTSIDE RECORDS SUMMARY | 2022-04-27 11:07 | XMS_ITS | Encounter Summary ---
:1945 Author Organization [facility] [place] [address] Care Team Providers Name Role Phone France Lam MD Primary Care Provider Reason for Referral Consultation (Routine) - Specialty Diagnoses / Procedures Referred By Contact Refer red To Contact Cardiology Diagnoses Acute ST elevation myocardial infarction (STEMI) of inferior wall Darrell Glasgow MD [facility] D [facility] [place] [address] Referral ID Status Reason Start Date Expiration Date Visits V isits Requested Authorized [id number] Consult, 12/08/2019 06/05/2020 1 1 Test & Treat Consultation (Routine) - Closed Specialty Diagnoses / Referred By Contact Referred To Contact Procedures Cardiac Rehabilitation Diagnoses ST elevation myocardial infarction involving right coronary artery Gretchen Yoon, Cardiac Rehab, [address] [place] [phone] Fax: Referral ID Status Reason Start Date Expiration Date Visits V isits Requested Authorized [id number] Closed Consult, 12/08/2019 06/05/2020 36 36 Test & Treat Reason for Visit Auth/Cert Specialty Diagnoses / Procedures Referred By Contact Refer red To Contact Diagnoses STEMI (ST elevation myocardial infarction) STEMI Procedures CARDIAC CATHETERIZATION Referral ID Status Reason Start Date Expiration Date Visits Requ ested Visits Authorized [id number] 1 1 Encounter Details Date Type Department Care Team Description 11/29/2019 - Hospital Encounter Cardiac Special YoungBarbra MD [facility] [place] [address] ST elevation myocardial infarction invol ving left main coronary artery; 12/08/2019 Care Unit Paris Lozano MD [facility] [place] [address] ST elevation myocardial infarction invol ving right coronary artery; [facility] Edema of upper extremity; Hospital Intracranial hemorrhage; [facility] Paroxysma l atrial fibrillation; Drive Acute pulmonary embolism, un specified pulmonary embolism type, unspecified whether acute cor pulmonale present; [place], [place] Acute ST elevat ion myocardial infarction (STEMI) of inferior wall [id number] Social History Tobacco Use Types Packs/Day Years [...] Luis Salinas Patient Age: 74 y.o. Language: Indian Race: White Ethnicity: Not nor Admit date: [...] months on: antiplatelet therapy at discretion of car rental service attendant - Repeat TTE in 3 months to reassess LV function - Repeat BMP in 1-2 weeks given recent start lisinopril - Referred to lipid clinic for consideration of PCSK-9 inhibitor given STEMI with intolerance of statins - Started on amiodarone this admission for recurrent rapid atrial flutter with rates ~170, recommendcontinued assessment of necessity of rhythm control strategy with car rental service attendant - Amiodarone monitoring recommendations as below [...] please contact your inpatient physician through the [facility] Masonry Inspector . Issues after hours and on weekends [...] took two full strength aspirinand came to [facility] ED. At there was found to [...] and Compazine. He was transferred directly to [facility] via [facility] for further management. Patient had an emergent PCI with 3 MACARIO stents placed to his RCA, with mild disease of LCX (report pending) at [facility]. He was found to be persistently hypotensive requiring Levo up to 10mcg/min. He was transferred to [facility] after the cath procedure. Bedside RHC showed CI 2.12, PAWP 11, PAP 38/15 indicating hypovolemic state. He received 1L bolus of NS with improvement of his blood pressure to 124/61. History of PAD, HLD - had side reactions to statins - so taking niacin and red rye grain. Chronic active smoker with more than 65 pack years. Family history of ID in father and two uncles. He's takingbaby [...] drip as described above. On arrival at [facility] he was taken for cardiac cath where [...] Electronically signed by: Estefani Harris [facility] ([phone]), at 11/29/2019 4:[address] Head wo [...] report, please contact the number below. Angiogram [place] (Exam End: 11/30/2019 4:36 PM) Impression Head CT: Stable hemorrhage in the region of the left optic tract. CTA: Negative exam. No abnormal vasculature in the area of hemorrhage. Thank you for letting us participate in the care of this patient. For questions regarding this report, please contact the number below. Electronically signed by: Angel Luis Barboza MD, [facility] ([phone]), at 11/30/2019 5:04 PM MRI Brain wo [...] by: Angel Luis Barboza MD, [facility] ([phone]), at 12/01/2019 8:02 PM XR Chest One [...] Electronically signed by: Merari Collins [facility] ([phone]), at 12/01/2019 3:53 PM XR Chest One [...] Electronically signed by: Roselyn Luciano [facility] ([phone]), at 12/04/2019 6:16 PM MRI Brain wwo Contrast (Generic) (Exam End: 12/05/2019 7:59 PM) Impression No significant interval change. Thank you for letting us participate in the care of this patient. For questions regarding this report, please contact the number below. Electronically signed by: Merari Collins [facility] ([phone]), at 12/05/2019 10:[address] Head wo [...] Electronically signed by: Merari Collins [facility] ([phone]), at 12/06/2019 10:06 PM Pending Studies and Lab Data: N/A Discharge Conditions/Prognosis: stable Discharge to: home Updated Allergies/ADRs: Allergies Allergen Reactions ??? Penicillins Pt doesn't remember reaction ??? Mgvjptf-Fuo-Kev Reductase Inhibitors Stiff neck, upset stomach, back [...] medications at another hospital and then at [facility] you had a stent placed in a [...] FOR ONE MONTH AND THEN STOP. Your car rental service attendant may tell you to start this medication again after one year. Clopidogrel (Plavix) 75 mg daily - This medication will help prevent clots from forming in your blood, which will help protect the stent that was placed in your heart vessel. TAKE THIS FOR ONE YEAR ANDTHEN DISCUSS WITH YOUR DEPARTMENT MANAGER WHETHER TO STOP. Amiodarone 400mg twice [...] follow up: Your primary care provider and car rental service attendant will manage your blood thinner (apixaban). You do not need lab monitoring of this medication. Diet: Please consume a healthy diet low in cholesterol Follow up Appointments: 12/10/2019 at 3:10PM with PCP Angel Luis Lott Future Appointments Date Time Provider Department Center 12/23/2019 1:30 PM Alfreda Salas APRN [address] 12/26/2019 9:40 AM Merlin Sanchez MD [facility] CARD 4A [facility] 12/30/2019 3:40 PM Gretchen Yoon MD [facility] 4A [facility] Future Appointments and Orders Future Appointments and Orders Future Appointments Provider Department Dept Phone 12/23/2019 1:30 PM Alfreda Salas APRN Neurosurgery at [facility] Arrive at: Home [phone] Please do not come in for this visit. Your provider will call you at the number you provided. 12/26/2019 9:40 AM Merlin Sanchez MD Cardiology at [facility] Arrive at: Home [phone] Please do not come in for this visit. Your provider will call you at the number you provided. 12/30/2019 3:40 PM Gretchen Yoon MD Cardiology at [facility] Arrive at: Home [phone] Please do not come in for this visit. Your provider will call you at the number you provided. Future Orders Complete By Expires Referral to Cardiac Rehab [[id number] Custom] As directed Process Instructions: If no progress note charted, please enter Clinical details in comments. Scheduling Instructions: Questions: My question or request is: STEMI. Cardiac rehab at [facility] Referral to [facility] [REF43 Custom] As directed Process Instructions: If no progress note charted, please enter Clinical details in comments. Scheduling Instructions: Questions: My question or request is: patient with inferior stemi with history of statin allergy (rash) - please evaluate for psck9 inhibitor. Referral to Home Health - at DISCHARGE [HPL6670 CPT(R)] As directed Process Instructions: Scheduling Instructions: Comments: DOCUMENTATION FOR [facility] SERVICES PATIENT'S LOCATION: [address] [phone] (home) Gluer Machine Setup Operator's Name: Self In discussion with the attending physician, it is certified that this patient is under his/her care and that MD, or an THERAPY DIRECTOR, CROSS COUNTRY COACH, or PA who is working directly with him/her, had a yvar-rv-znpb encounter that meets the physician fvix-sk-gmaj encounter requirements with this patient on 12/07/2019. [...] HEALTH CARE AGENCY: [facility], PHONE: [phone] FAX: [phone] Start of care: 24-48 hours after hospital [...] MD [address] / [place] [address] All A agencies which cover the area of patient's residence have been reviewed, either verbally or in writing, and patient/family have chosen the home health care agency noted. Questions: Agency name and contact information: [facility] Patient location post discharge: Home What services are requested: Registered Nurse Physical Therapy Occupational Therapy Start date: Responsible MD post discharge contact info: PCP Your PCP: France Lam MD [phone] For questions regarding this document or issues relating to this hospitalization on the Cardiology Service, please contact your inpatient physician through the [facility] Masonry Inspector . Issues after hours and on weekends will be handled by the Network Strategist on-call. Patient Instructions: Neurology Your Diagnosis: Left [...] follow-up appointment in the neurology clinic at [facility]. See below for the appointment time. [...] 1:30 PM Alfreda Salas APRN Neurosurgery at [facility] Arrive at: Home [phone] Please do not come in for this visit. Your provider will call you at the number you provided. 12/26/2019 9:40 AM Merlin Sanchez MD Cardiology at [facility] Arrive at: Home [phone] Please do not come in for this visit. Your provider will call you at the number you provided. 12/30/2019 3:40 PM Gretchen Yoon MD Cardiology at [facility] Arrive at: Home [phone] Please do not come in for this visit. Your provider will call you at the number you provided. Future Orders Complete By Expires Referral to Cardiac Rehab [[id number] Custom] As directed Process Instructions: If no progress note charted, please enter Clinical details in comments. Scheduling Instructions: Questions: My question or request is: STEMI. Cardiac rehab at [facility] Referral to [facility] [REF43 Custom] As directed Process Instructions: If no progress note charted, please enter Clinical details in comments. Scheduling Instructions: Questions: My question or request is: patient with inferior stemi with history of statin allergy (rash) - please evaluate for psck9 inhibitor. Referral to Home Health - at DISCHARGE [[id number] CPT(R)] As directed Process Instructions: Scheduling Instructions: Comments: DOCUMENTATION FOR VNA SERVICES PATIENT'S LOCATION: [address] [phone] (home) Gluer Machine Setup Operator's Name: Self In discussion with the attending physician, it is certified that this patient is under his/her care and that MD, or an THERAPY DIRECTOR, CROSS COUNTRY COACH, or PA who is working directly with him/her, had a byub-tm-outk encounter that meets the physician kvdm-om-phwq encounter requirements with this patient on 12/07/2019. [...] HEALTH CARE AGENCY: [facility], PHONE: [phone] FAX: [phone] Start of care: 24-48 hours after hospital [...] France Lam MD [address] / [facility] [address] All A agencies which cover the area of patient's residence have been reviewed, either verbally or in writing, and patient/family have chosen the home health care agency noted. Questions: Agency name and contact information: [facility] Patient location post discharge: Home What services are requested: Registered Nurse Physical Therapy Occupational Therapy Start date: Responsible MD post discharge contact info: PCP Discharge References/Attachments Atrial Fibrillation (Indian) Cardiac Rehabilitation (Indian) Heart Failure (Indian) Heart Failure: Limiting Sodium (Indian) Hemorrhagic Stroke: General Info (Indian) Smoking: Stopping (Indian) Stroke Rehabilitation: General Info (Indian) Pulmonary Embolism (Indian) Riki Stevens MD PGY-3, Internal Medicine Cardiology S2, #4182 Associated attestation - Paris Dodd MD - 12/09/2019 4:44 PM EDT Cardiology Attending Discharge Addendum I was the assigned attending car rental service attendant for this clinical encounter. For the [...] complications include novel onset, paroxysmal atrial fibrillation [[id number]: 5] & L-sided diplopia with potential hemineglect [...] My contact information: Paris Matt MD MPH [place] [phone] (office); Pager #[phone] Email: [email or web address] documented in this encounter Discharge Instructions Patient InstructionsFiRiki de jesus MD - 12/02/2019 9:56 AM EDT Images from the original note were not included. Why you were hospitalized: You had a heart attack. You received clot-busting medications at another hospital and then at [facility] you had a stent placed in a [...] FOR ONE MONTH AND THEN STOP. Your car rental service attendant may tell you to start this medication again after one year. Clopidogrel (Plavix) 75 mg daily - This medication will help prevent clots from forming in your blood, which will help protect the stent that was placed in your heart vessel. TAKE THIS FOR ONE YEAR ANDTHEN DISCUSS WITH YOUR DEPARTMENT MANAGER WHETHER TO STOP. Amiodarone 400mg twice [...] follow up: Your primary care provider and car rental service attendant will manage your blood thinner (apixaban). You do not need lab monitoring of this medication. Diet: Please consume a healthy diet low in cholesterol Follow up Appointments: 12/10/2019 at 3:10PM with PCP Angel Luis Lott Future Appointments Date Time Provider Department Center 12/23/2019 1:30 PM Alfreda Salas APRN [facility] [id number] [facility] 12/26/2019 9:40 AM Merlin Sanchez MD [facility] CARD 4A [facility] 12/30/2019 3:40 PM Gretchen Yoon MD [facility] CARD 4A [facility] Future Appointments and Orders Future Appointments and Orders Future Appointments Provider Department Dept Phone 12/23/2019 1:30 PM Alfreda Salas APRN Neurosurgery at [facility] Arrive at: Home [phone] Please do not come in for this visit. Your provider will call you at the number you provided. 12/26/2019 9:40 AM Merlin Sanchez MD Cardiology at [facility] Arrive at: Home [phone] Please do not come in for this visit. Your provider will call you at the number you provided. 12/30/2019 3:40 PM Gretchen Yoon MD Cardiology at [facility] Arrive at: Home [phone] Please do not come in for this visit. Your provider will call you at the number you provided. Future Orders Complete By Expires Referral to Cardiac Rehab [[id number] Custom] As directed Process Instructions: If no progress note charted, please enter Clinical details in comments. Scheduling Instructions: Questions: My question or request is: STEMI. Cardiac rehab at [facility] Referral to [facility] [REF43 Custom] As directed Process Instructions: If no progress note charted, please enter Clinical details in comments. Scheduling Instructions: Questions: My question or request is: patient with inferior stemi with history of statin allergy (rash) - please evaluate for psck9 inhibitor. Referral to Home Health - at DISCHARGE [[id number] CPT(R)] As directed Process Instructions: Scheduling Instructions: Comments: DOCUMENTATION FOR VNA SERVICES PATIENT'S LOCATION: [address] [phone] (home) Gluer Machine Setup Operator's Name: Self In discussion with the attending physician, it is certified that this patient is under his/her care and that MD, or an THERAPY DIRECTOR, CROSS COUNTRY COACH, or PA who is working directly with him/her, had a pcfy-cb-pvwo encounter that meets the physician mblx-bm-bzrv encounter requirements with this patient on 12/07/2019. [...] HEALTH CARE AGENCY: [facility], PHONE: [phone] FAX: [phone] Start of care: 24-48 hours after hospital [...] MD [address] / [place] [address] All A agencies which cover the area of patient's residence have been reviewed, either verbally or in writing, and patient/family have chosen the home health care agency noted. Questions: Agency name and contact information: [facility] Patient location post discharge: Home What services are requested: Registered Nurse Physical Therapy Occupational Therapy Start date: Responsible MD post discharge contact info: PCP Your PCP: France Lam MD [phone] For questions regarding this document or issues relating to this hospitalization on the Cardiology Service, please contact your inpatient physician through the [facility] Masonry Inspector . Issues after hours and on weekends will be handled by the Network Strategist on-call. Patient Instructions: Neurology Your Diagnosis: Left [...] follow-up appointment in the neurology clinic at [facility]. See below for the appointment time. If you do not have an appointment, you will be called with a time/date for this appointment. ??? Primary Care Provider: Please follow up with your Primary Care Provider within one to 2 weeks ofdischarge. AttachmentsThe following attachments cannot be sent through Care Everywhere. Atrial Fibrillation (Indian)Cardiac Rehabilitation (Indian)Heart Failure (Indian)Heart Failure: Limiting Sodium (Indian)Hemorrhagic Stroke: General Info (Indian)Smoking: Stopping (Indian)Stroke Rehabilitation: General Info (Indian)Pulmonary Embolism (Indian)documented in this encounter Medications at Time of [...] consulted in the interim. Vikash Rodriguez Pager: [phone] Paris Dodd MD - 12/08/2019 8:57 AM [...] complications include novel onset, paroxysmal atrial fibrillation [[id number]: 5] & L-sided diplopia with potential hemineglect [...] consulted in the interim. Vikash Rodriguez Pager: [phone] Paris Dodd MD - 12/07/2019 9:55 AM [...] complications include novel onset, paroxysmal atrial fibrillation [BLK2CJ0PPJA: 5] & L-sided diplopia with potential hemineglect [...] complications include novel onset, paroxysmal atrial fibrillation [KII3CL6JVZB: 5] & L-sided diplopia with potential hemineglect [...] complications include novel onset, paroxysmal atrial fibrillation [EAT9TP2KLRV: 5] & L-sided diplopia with potential hemineglect [...] today; additional complications include paroxysmal atrial fibrillation [[id number]: 4] c/b possible cardioembolic stroke, ICH from [...] a non-culprit artery. S/P DESx3 in the eyqbcrxu-ze-wghurj RCA. Aspiration thrombectomy performed, and integrellin bolus [...] infarct, likely embolic Assessment [A]: Mr. Angel uLis Salinas is a 74 year old M [...] complications include novel onset, paroxysmal atrial fibrillation [XBR4GG7OJVY: 5] & L-sided diplopia with potential hemineglect [...] R occipital cardioembolic stroke #Paroxysmal Afib with WE4TFMGY4Y score of 5 #New segmental bilateral PEs [...] Glasgow MD PGY1, Internal Medicine Cardiology S2, #1999 Associated attestation - Paris Dodd MD - 12/05/2019 2:59 PM EDT I was the assigned attending car rental service attendant for this clinical encounter. For the [...] 12/04/2019 10:36 AM EDT Office of Care Management(OCM)/Freight Forwarder(CM)/Discharge Planning Service: Cardiology S2 team CM Bernie Alexander,RN,BSN,MA,ACM pgr [phone] Reviewed record and in Cardiology Rounds with MD team,CMs, bingo clerk, CYBER OPERATOR. Pt is anticipated ready for d/c later today. Met w pt re d/c plan and he continues to agree with home PT/OT/RN w [facility]. His son is bringing his to pick him up together. Discussed Advance Directives and DPOAH- he states he has at home and designated his as primiary; he thought his PCP would have copy. Tel call to PCP who notes no DPOAH on file. Encouraged pt to take his AD to his PCP and to any [facility] appt for each to have on file. [...] complications include novel onset, paroxysmal atrial fibrillation [XRH0FY0BOLA: 4] & L-sided diplopia with potential hemineglect [...] a non-culprit artery. S/P DESx3 in the vrhusdib-dn-yahweh RCA. Aspiration thrombectomy performed, and integrellin bolus [...] complications include novel onset, paroxysmal atrial fibrillation [FKL4ER8HJPI: 5] & L-sided diplopia with potential hemineglect [...] R occipital cardioembolic stroke #Paroxysmal Afib with PE7LAWPU4C score of 5 - No anticoagulation for [...] Glasgow MD PGY1, Internal Medicine Cardiology S2, #2897 I have seen the patient and reviewed [...] in my clinic. Gretchen Yoon MD Pager [phone] Derian Pascual RN - 12/03/2019 9:29 AM [...] Discharge: None Electronically signed: Derian Pascual RN, Freight Forwarder Pgr: [phone] 12/03/2019 9:29 AM Gretchen Yoon [...] complications include novel onset, paroxysmal atrial fibrillation [UNG8SJ6XABW: 4] & L-sided diplopia with potential hemineglect [...] a non-culprit artery. S/P DESx3 in the vrgxaulh-yk-iedbzb RCA. Aspiration thrombectomy performed, and integrellin bolus [...] complications include novel onset, paroxysmal atrial fibrillation [DWS6TO9CXML: 5] & L-sided diplopia with potential hemineglect [...] [facility] and follow up with his PCP. Patient voiced strong will to quit smoking now, understood that we have resources available for help. Plan [P]: --Neurologic-- # Concern for Left-Sided Diplopia, r/o Hemineglect # Concern for CVA, last-known well 11/29/19 - MRI showed possible cardioembolic stroke #Afib with ZY9UXMPM6W score of 5 - Stroke Team Consulted; [...] Anticoagulation/Arrhythmia # Novel Onset, Paroxsymal Atrial Fibrillation [FCY3GZ9ALJU: 5] - Hold off anticoagulation for at [...] w straight cath prn # Nutrition - [facility] Diet, 2g Na. -- Hematology/Oncology-- # Mild [...] Glasgow MD PGY1, Internal Medicine Cardiology S2, #9939 I have seen the patient and reviewed the resident's above history and I agree with the details as written. The assessment and plan were formulated in discussion with me and I agree with them as documented. Gretchen Yoon MD Pager [phone] Raul Hein RN - 12/03/2019 5:55 AM [...] Negative mcL Appearance UA Clear Clear Spec [place] UA 1.026 1.006 - 1.030 Color UA [...] PGY3 Neurology Resident 12/01/2019 Vascular Neurology Pager [phone] Neurology Attending Attestation I evaluated the patient [...] documented. Deepthi Roman MD Vascular Neurology Standard [facility] Swallow Screen: This screen is to be [...] diet as medical provider deems appropriate. Consider ARBORIST REPRESENTATIVE consult for full evaluation and diet recommendations. [...] complications include novel onset, paroxysmal atrial fibrillation [[id number]: 4] & L-sided diplopia with potential hemineglect [...] a non-culprit artery. S/P DESx3 in the zdrvqiag-qo-hgjywm RCA. Aspiration thrombectomy performed, and integrellin bolus [...] complications include novel onset, paroxysmal atrial fibrillation [[id number]: 5] & L-sided diplopia with potential hemineglect [...] Anticoagulation/Arrhythmia # Novel Onset, Paroxsymal Atrial Fibrillation [[id number]: 5] - Hold off anticoagulation - pending [...] tamsulosin d/t low BP. # Nutrition - [facility] Diet -- Hematology/Oncology-- # Mild Thrombocytopenia, unclear [...] Glasgow MD PGY1, Internal Medicine Cardiology S2, #[id number] I have seen the patient and reviewed [...] the ICU team. Gretchen Yoon MD Pager [phone] Natalia Claros APRN - 12/02/2019 8:38 AM [...] - We are signing off. Please page [phone] with any questions or concerns. For questions please call NS pager [phone] Natalia Claros APRN 12/02/2019 8:38 AM Clinical Documentation Improvement: Active Hospital Problems Diagnosis ??? Acute ST elevation myocardial infarction (STEMI) of inferior wall ??? Intracranial hemorrhage ??? Hyperlipidemia ??? Tobacco abuse ??? Claudication from peripheral vascular disease, left Resolved Hospital Problems No resolved problems to display. Tello Hsu, PROTECTIVE SIGNAL OPERATIONS SUPERVISOR - 12/02/2019 2:06 AM EDT 06/01/20 2010 [...] Scan in afternoon. Upon arrival back in [facility] placed on low flow NC at [...] complications include novel onset, paroxysmal atrial fibrillation [[id number]: 4] & L-sided diplopia with potential hemineglect for which CVA evaluationto be pursued. Active Problems/Subjective: - 11/28: admitted for inferior STEMI, RV failure requiring pressor - got lytics, aspirin and plavix load, heparin gtt, and eptifibatide. 3 MACARIO stents to RCA. Pompey cath - low wedge & CVP so [...] a non-culprit artery. S/P DESx3 in the qmdhyvap-qs-gvxkku RCA. Aspiration thrombectomy performed, and integrellin bolus [...] complications include novel onset, paroxysmal atrial fibrillation [[id number]: 4] & L-sided diplopia with potential hemineglect [...] Anticoagulation/Arrhythmia # Novel Onset, Paroxsymal Atrial Fibrillation [[id number]: 4] - Obtain: TTE - Pending CVA [...] tamsulosin d/t low BP. # Nutrition - [facility] Diet -- Hematology/Oncology-- # Mild Thrombocytopenia, unclear [...] MD, PGY1 PGY3, Internal Medicine Cardiology S2, #[id number] I have seen the patient and reviewed [...] down the line. Gretchen Yoon MD Pager [phone] ?? Gretchen Yoon MD Pager [phone] Natalia Claros APRN - 12/01/2019 1:33 AM [...] per primary team For questions please call [employer] pager [phone] Natalia Claros APRN 12/01/2019 7:42 AM Clinical Documentation Improvement: Active Hospital Problems Diagnosis ??? Acute ST elevation myocardial infarction (STEMI) of inferior wall ??? Intracranial hemorrhage ??? Hyperlipidemia ??? Tobacco abuse ??? Claudication from peripheral vascular disease, left Resolved Hospital Problems No resolved problems to display. Tello Hsu, PROTECTIVE SIGNAL OPERATIONS SUPERVISOR - 11/30/2019 8:44 PM EDT Respiratory [...] EDT Narrative:Visited in response to request for Land Leveler services. Pt was awake, alert, oriented and in bed. Assessment:Patient coping positively with stresses of illness/hospitalization at this time. Pt says that he is hoping to get better and pt is living with and has children and grandchildren. Pt haspurpose of life and has reason to get getter and to be with family. Outcome: Provided emotional and spiritual support and encouraging presence. Land Leveler services accepted.Conversation to build trusting relationship.Provided pastoral [...] complications include novel onset, paroxysmal atrial fibrillation [[id number]: 4] & L-sided diplopia with potential hemineglect for which CVA evaluationto be pursued. Active Problems/Subjective: - Overnight, CVP < 12 for which a total of 1 L IVF provided - Today AM, patient complains of subjectively reported, left-sided hemineglect with floaters and diplopia [see: exam]. - Otherwise, c/o neck pain 2/2 R IJ Pompey & L radial A line. Otherwise, denies [...] a non-culprit artery. S/P DESx3 in the zevpokae-ah-eyczcz RCA. Aspiration thrombectomy performed, and integrellin bolus [...] complications include novel onset, paroxysmal atrial fibrillation [[id number]: 4] & L-sided diplopia with potential hemineglect [...] Anticoagulation/Arrhythmia # Novel Onset, Paroxsymal Atrial Fibrillation [[id number]: 4] - Obtain: TTE to confirm rhythm [...] tamsulosin d/t low BP. # Nutrition - [facility] Diet -- Hematology/Oncology-- # Mild Thrombocytopenia, unclear [...] MD, PGY3 PGY3, Internal Medicine Cardiology S2, #[id number] I have seen the patient and reviewed [...] down the line. Gretchen Yoon MD Pager [phone] Paola Capps RN - 11/30/2019 6:57 AM EDT PT still requiring 4 of levo, several attempts to titrate down (maps in 70;s) But maps would drop toless than 65. Pt very restless in bed Raising and lowering head denies pain . Integrillin stopped [id number] when bottle complete , urine tea colored [...] PCP: France Lam MD PCP phone #: [phone] Shot Core Drill Operator: None ID/Chief Complaint: Chest pain History of Present Illness: 74 y.o male with no significant PMH, was in usual state of health until yesterday when he woke up at 4am this morning with severe crushing substernal chest pain 10/. He took two full strength aspirin and came to [facility] ED. At there was found to [...] and Compazine. He was transferred directly to [facility] via [facility] for further management. Patient had an emergent PCI with 3 MACARIO stents placed to his RCA, with mild disease of LCX (report pending) at [facility]. He was found to be persistently hypotensive requiring Levo up to 10mcg/min. He was transferred to [facility] after the cath procedure. Bedside RHC showed CI 2.12, PAWP 11, PAP 38/15 indicating hypovolemic state. He received 1L bolus of NS with improvement of his blood pressure to 124/61. History of PAD, HLD - had side reactions to statins - so taking niacin and red rye grain. Chronic active smoker with more than 65 pack years. Family history of ID in father and two uncles. He's takingbaby [...] ??? Penicillins Pt doesn't remember reaction ??? Skzyklm-Uwt-Bsu Reductase Inhibitors Stiff neck, upset stomach, back pain Family History: Mother: Father: ID 2 Uncles with MIs Social History: Tobacco: Current active smoker 1 ppd. 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 Vitals: Last value Range last [...] in the last 7068 hours. Invalid input(s): LZNCWRCGFBN0H Heme: No results for input(s): LDH, HAPTOGLOBIN, [...] OSH prior to transfer and PCI at [facility]. Massive inferior STEMI with troponin level 20, currently in CVCC due to pressor requirement. BedsideRHC demonstrated evidence of elevated right sided heart failure, but his wedge was wnl. He received 1L bolus with improvement of his blood pressure and reduction of his pressor requirement. PLAN: Admit to Cardiology, S2 Team Pager # [phone] #Inferior STEMI, LEYLA 149 - Resolving EKG [...] inferior STEMI s/p lytic therapy. Transferred to [facility] and underwent successful PCI of the RCA with MACARIO x3. Gretchen Yoon MD Pager [phone] documented in this encounter Procedure Notes Juventino [...] to the planned procedure. Hand Hygiene: The senior search marketing analyst did perform hand hygiene prior to arterial [...] a suspected line-associated infection. Location of Procedure: [facility] Risks and Benefits: The risks and [...] to the planned procedure. Hand Hygiene: The senior search marketing analyst did perform hand hygiene prior to line [...] side:right An Introducer (PSI Kit) was used. [place]. Insertion Side: right. Insertion Site: internal jugular. Catheter Details: Number of Lumens: 1 Catheter Type: heparin-coated The line was placed over a guidewire. Confirmation of Venous Placement: Venous placement was confirmed by transducing the pressure. Introducer Insertion Attempts: 1 Comments: Floating the Pompey-Mo Catheter Attempts: 1 Comments: Sterile Dressing: Biopatch [...] better pt back in SR. Please page [phone] for any more cares or concerns Plan [...] complications include novel onset, paroxysmal atrial fibrillation [[id number]: 5]& L-sided diplopia with potential hemineglect for [...] Total Evaluation Minutes, Occupational Therapy: 10 Pager: [phone] FARNCINE Nuñez Occupational Therapy Rehabilitation Department Plan of [...] complications include novel onset, paroxysmal atrial fibrillation [[id number]: 5] & L-sided diplopia with potential hemineglect [...] hand rails). Baseline Mobility: Independent. Drives. Shares manufacturing finance manager with his , however her mobility is [...] plan as stated. Time IN / OUT: 1607-8768 Total Evaluation Minutes, Physical Therapy: 15(gtx1) Barbara Baldwin, PT Pager: [phone] Physical Therapy Inpatient Rehabilitation Department Plan of [...] Adolescents. Consult refused. Romain Tran, MSN, RN-, [facility] Tobacco Securities Adviser [facility] Pager #[phone] Plan of Care - Romain Oglesby OT [...] complications include novel onset, paroxysmal atrial fibrillation [[id number]: 5] & L-sided diplopia with potential hemineglect [...] and measurable assessment of functional outcome. Pager: [phone] ROMAIN OGLESBY OT 12/03/2019 Occupational Therapy Rehabilitation [...] in an outpatient cardiac rehabilitation program at [facility] was discussed. Patient agrees to a referral to this program. His has been a cardiac rehab patient at [facility] and he is familiar with the [...] complications include novel onset, paroxysmal atrial fibrillation [[id number]: 5] & L-sided diplopia with potential hemineglect [...] hand rails). Baseline Mobility: Independent. Drives. Shares manufacturing finance manager with his , however her mobility is [...] in this evaluation. Time IN / OUT: 4602-3327 Total Evaluation Minutes, Physical Therapy: 25(eval, gtx1) Barbara Baldwin, PT Pager: [phone] Physical Therapy Inpatient Rehabilitation Department Consult Note [...] 31.2 (L) 12/01/2019 Nutritional Intake Current bed: [facility] Assessment: Patient is with an area [...] Please contact JOHANNA NOBLES RN on pager [phone] or the wound care team at [phone] or pager [phone] skin and wound care concerns or questions. [...] making law. Any patient receiving carspousee at [facility] must abide by [place] law. The hierarchy [...] Insurance: N/A Prescription Coverage: Yes Preferred Pharmacy: [place], [place] Other: No Primary Care Provider: France Lam MD [phone] Patient/Caregiver Goals of Treatment: Return home Potential Needs for Transition of Care: Rehab/SNF: Based on discussions with the multi-disciplinary healthcare team, the patient would benefit from SNF level of care at discharge. ?? I have met with the patient to discuss discharge planning needs. I have provided the [facility], Officeof Care Management letter from the Termite [employer]per pertaining to rehab referrals. I have also provided a letter describing our affiliations within the [facility] and educated them about [...] patient have requested referrals to: ?? 1. [facility] [address] [place] [id number] ?? [address]. [address] [place] [address] Note routed to [employer] who will communicate referrals to facilities and provide any required information. Home Health: If therapies recommend home w/ VNA, the patient has been provided a list of Home Health Agencies/DME vendors which serve their preferred geographic area. A letter describing our affiliations was reviewed with them and they were educated about their right to choose where referrals are placed. Patient requests referral to [facility]. PHONE: [phone] FAX: [phone] Referral routed to the [employer] for matching with agency/vendor and to provide [...] Insured w/ Medicare. Gets medications filled at [facility] in [place], [place]. Son to transport at discharge Plan: Discharge dispo depending on patient's physical recovery; SNF vs home w/ VNA. A member of the Care Management team will continue to monitor progress, follow for continuity of care and assist with transition of care planning. Derian Pascual, NIURKA Pager: [phone] Plan of Care - Estefani Baeza RN [...] ??? Penicillins Pt doesn't remember reaction ??? Zjmtpvv-Ryy-Uso Reductase Inhibitors Stiff neck, upset stomach, back [...] vision concerning for stroke. Patient presented to [facility] in transfer for a STEMI after presenting [...] ??? Penicillins Pt doesn't remember reaction ??? Ckmgrhn-Zfg-Qun Reductase Inhibitors Stiff neck, upset stomach, back [...] L Elbow flexion 5/5 R, 5/5 L Assistant Research Scientist LE: 5/5 R, 5/5 L Hip flexion [...] - HOLD anticoagulation Seen with Dr. Jackie Hernadnez?? Consult service will continue to follow patient. Recommendations are above, please page if further consultation required. Barbara Nelson MD PGY3 Neurology Resident 11/30/2019 Vascular Neurology Pager [phone] Standard [facility] Swallow Screen: This screen is to be [...] diet as medical provider deems appropriate. Consider ARBORIST REPRESENTATIVE consult for full evaluation and diet recommendations. [...] Afib admitted s/p thrombolysis and Cath-Stent to [facility] who developed R sided visual [...] hours. Evan Mejia MD Department of Neurology [facility] Brief Op Note - Gretchen Yoon MD - 11/29/2019 8:38 PM EDT Brief Operative Note Patient Name: Angel Luis Salinas : [id number] MR#: [id number] Case Date: 11/29/2019 Surgeon: Surgeon(s) and Role: * Gretchen Yoon MD - Primary * Aidan Ward MD - Fellow Preoperative diagnosis: Inferior STEMI Postoperative diagnosis: Inferior STEMI Procedure(s) (LRB): CARDIAC CATHETERIZATION (N/A) Findings: Discrete 90% stenosis in the prox-to-mid RCA. Severe diffuse disease in the distal vessel. Discrete LCX stenosis in a non-culprit artery. S/P DESx3 in the tincykys-lt-gijbag RCA. Aspiration thrombectomy performed, and integrellin bolus [...] athologist Signature Potassium 3.9 3.5 - 5.0 [facility] mmol/L [facility] Comment: Please note: ??Patients with [...] City/State/[place] [address] (ABNORMAL) Hemogram (12/08/2019 12:39 PM EDT) Analysis Performed At Patho logist Time Signature WBC 9.9 (H) 4.0 - 9.5 [facility] LABORATORY RBC 4.51 (L) 4.58 - [place] DOV 5.54 [facility] x10(6)/[facility] LABORATORY Hemoglobin 13.0 (L) 13.7 - [place] 16.5 gm/dL [facility] Hematocrit 40.5 40.5 - [place] 48.5 % [facility] MCV 89.8 82.9 - [facility] DOV 93.1 [facility] LABORATORY MCH 28.8 27.5 - [place] 32.1 pg [facility] LAB[facility] MCHC 32.1 32.0 - [place] 35.7 gm/dL [facility] Platelets 214 145 - 357 [facility] x10(3)/[facility] LABORATORY RDWSD 49.2 (H) 36.0 - [place] 45.0 [facility] LABORATORY RDWCV 15.1 (H) 11.4 - [place] 13.8 % [facility] LAB[facility]ORY MPV 12.1 7.6 - 12.9 [facility] nRBC % Auto 0.0 % [facility] LABORATORY nRBC Abs Auto 0.000 0.000 - [place] 0.000 [facility] x10(3)/[facility] LABORATORY Specimen Anatomical Collection Method Collection Time Receive d Time (Source) Location / / Volume Laterality Blood specimen 12/08/2019 12:39 0 (specimen) PM EDT 12:47 PM EDT Resulting Agency Comment Spec In Lab Gretchen Yoon MD HEMATOLOGY ORDERABLES Performing Organization Address City/State/ZIP Code Phon e Number [address] Hepatic Function Panel (12/08/2019 6:28 AM EDT) athologist Signature Total Protein 6.6 6.1 - 8.0 [facility] DOV gm/dL [facility] Albumin 3.2 3.2 - 5.2 [place] gm/dL [facility] AST 18 0 - 39 [place] unit/L [facility] ALT 13 0 - 55 [place] unit/L [facility] Alk Phos 64 40 - 130 [facility] DOV unit/L [facility] Total 0.4 0.2 - 1.3 [place] [facility] Bilirubin mg/dL [facility] Bili, Direct 0.1 0.0 - 0.3 [facility] DOV mg/dL [facility] Specimen Anatomical Collection Method Collection Time Receive d Time (Source) Location / / Volume Laterality Blood specimen Venous Draw / 12/08/2019 6:28 AM 2019 6:36 (specimen) Unknown EDT AM EDT Resulting Agency Comment Spec In Lab Riki Stevens MD CHEMISTRY ORDERABLES Performing Organization Address City/[facility]/ZIP Code Phon e Number [address] (ABNORMAL) TSH (12/08/2019 6:28 AM EDT) athologist Signature TSH 5.27 (H) 0.27 - 4.20 [facility] DOV mcIU/mL [facility] LABORATORY Specimen Anatomical Collection Method Collection Time Receive d Time (Source) Location / / Volume Laterality Blood specimen Venous Draw / 12/08/2019 6:28 AM 2019 6:36 (specimen) Unknown EDT AM EDT Resulting Agency Comment Spec In Lab Darrell Glasgow MD CHEMISTRY ORDERABLES Performing Organization Address City/[facility]/ZIP Code Phon e Number [address] Potassium (12/08/2019 6:28 AM EDT) P athologist Signature Potassium 4.2 3.5 - 5.0 [facility] mmol/L [facility] Comment: Please note: ??Patients with [...] Organization Address City/State/ZIP Code Phon e Number [place] [id number] (ABNORMAL) Differential, Automated (12/08/2019 12:43 AM EDT) Patholo gist Method Time Signature Neutrophils % 60.7 % [facility] Neutr Abs (ANC) 6.81 (H) 1.70 - [facility] 6.10 [facility] x10(3)/[facility] LABORATORY Lymphocytes % 23.4 % [facility] Lymphocytes Abs 2.6 0.9 - 3.2 [facility] x10(3)/[facility] LABORATORY Monocytes % 10.0 % [facility] Monocyte Abs 1.1 (H) 0.3 - 0.9 [facility] x10(3)/[facility] LABORATORY Eosinophils % 3.7 % [facility] Eosinophils Abs 0.4 0.0 - 0.4 [facility] x10(3)/[facility] LABORATORY Basophils % 1.2 % [facility] LABOR[facility]ORY Basophils Abs 0.1 0.0 - 0.1 [facility] x10(3)/[facility] LABORATORY Immature Gran % 1.00 % [facility] [...] Gran Abs 0.11 (H) 0.00 - 0.04 x10(3)/[facility] LABORATORY Specimen Anatomical Collection Method Collection Time Receive d Time (Source) Location / / Volume Laterality Blood specimen 12/08/2019 12:43 0 (specimen) AM EDT 12:52 AM EDT Resulting Agency Comment Spec In Lab Riki Stevens MD HEMATOLOGY ORDERABLES Performing Organization Address City/State/[place] [address] (ABNORMAL) Hemogram (12/08/2019 12:43 AM EDT) Analysis Performed At Patho logist Time Signature WBC 11.2 (H) 4.0 - 9.5 [facility] x10(3)/[facility] LABORATORY RBC 4.46 (L) 4.58 - [facility] DOV 5.54 [facility] x10(6)/[facility] LABORATORY Hemoglobin 13.1 (L) 13.7 - [facility] 16.5 gm/dL [facility] LAB[facility]ORY Hematocrit 40.5 40.5 - [facility] DOV 48.5 % [facility] LABORATORY MCV 90.8 82.9 - [facility] 93.1 [facility] LABORATORY MCH 29.4 27.5 - [facility] DOV 32.1 pg [facility] LABORATORY MCHC 32.3 32.0 - [facility] DOV 35.7 gm/dL [facility] LABORATORY Platelets 215 145 - 357 [facility] x10(3)/[facility] LABORATORY RDWSD 49.8 (H) 36.0 - [facility] DOV 45.0 [facility] LABORATORY RDWCV 15.2 (H) 11.4 - [facility] DOV 13.8 % [facility] LABORATORY MPV 12.3 7.6 - 12.9 [facility] LABORATORY nRBC % Auto 0.0 % [facility] LABORATORY nRBC Abs Auto 0.000 0.000 - [facility] DOV 0.000 [facility] x10(3)/[facility] LABORATORY Specimen Anatomical Collection Method Collection Time Receive d Time (Source) Location / / Volume Laterality Blood specimen 12/08/2019 12:43 0 (specimen) AM EDT 12:52 AM EDT Resulting Agency Comment Spec In Lab Riki Stevens MD HEMATOLOGY ORDERABLES Performing Organization Address City/State/ZIP Code Phon e Number [address] Magnesium (12/08/2019 12:43 AM EDT) athologist Signature Magnesium 1.01 0.69 - 1.07 [facility] mmol/L [facility] LABORATORY Specimen Anatomical Collection Method Collection Time Receive d Time (Source) Location / / Volume Laterality Blood specimen 12/08/2019 12:43 0 (specimen) AM EDT 12:52 AM EDT Resulting Agency Comment Spec In Lab Gretchen Yoon MD CHEMISTRY ORDERABLES Performing Organization Address City/State/[place] [address] (ABNORMAL) BMP w/fasting Glucose (12/08/2019 12:43 AM EDT) P athologist Signature Glucose 106 (H) 65 - 99 [facility] Fasting mg/dL [facility] Comment: ?Fasting* Glucose Interpretive C [...] of Diabetes Mellitus, Position Statement from the [employer]. ??Diabete s Care, Volume 33, Supplement 1, Jul 2009 BUN 14 10 - 20 mg/dL [facility] DOV [facility] LABORATORY Creatinine 1.16 0.80 - 1.50 mg/dL [facility] LABORATORY Sodium 134 (L) 135 - 145 mmol/L [facility] LABOR[facility] Potassium 4.0 3.5 - 5.0 mmol/L [facility] Comment: Please note: ??Patients with [...] Gap 16 (H) 5 - 15 mmol/L [facility] LABORATORY Calcium 8.9 8.5 - 10.5 mg/dL [facility] LABOR[facility]ORY Estimated GFR 62 >=60 mL/min/1.73 m?? [facility] Comment: The eGFR was calculated using the CKD-EP I equation. As with all creatinine based estimates of kidney function, eGFR values calculated with the CKD-EPI equation are not accurate in patients wi th acute kidney failure, extremes of body mass or the acutely ill. http://[employer]/[facility]f eGFR 72 >=60 mL/min/1.73 m?? [facility] Comment: The eGFR was calculated using the CKD-EP I equation. As with all creatinine based estimates of kidney function, eGFR values calculated with the CKD-EPI equation are not accurate in patients wi th acute kidney failure, extremes of body mass or the acutely ill. [email or web address] – [email or web address] Specimen Anatomical Collection Method Collection Time Receive d Time (Source) Location / / Volume Laterality Blood specimen 12/08/2019 12:43 0 (specimen) AM EDT 12:52 AM EDT Resulting Agency Comment Spec In Lab Gretchen Yoon MD CHEMISTRY ORDERABLES Performing Organization Address City/State/ZIP Code Phon e Number [place] [id number] Heparin (unfractionated) Level (12/08/2019 12:43 AM EDT) athologist Signature Heparin UFH 0.60 IU/mL [facility] LABORATORY Comment: [...] City/State/[place] [address] Potassium (12/07/2019 8:39 PM EDT) athologist Signature Potassium 4.1 3.5 - 5.0 [facility] mmol/L [facility] LABORATORY Comment: Please note: ??Patients with [...] Organization Address City/State/ZIP Code Phon e Number [address] Potassium (12/07/2019 4:02 PM EDT) P athologist Signature Potassium 4.0 3.5 - 5.0 [facility] DOV mmol/L [facility] LABORATORY Comment: Please note: ??Patients with [...] Yoon MD CHEMISTRY ORDERABLES Performing Organization Address City/[facility]/[place] [address] (ABNORMAL) Hemogram (12/07/2019 4:02 PM EDT) Analysis Performed At Patho logist Time Signature WBC 17.4 (H) 4.0 - 9.5 [place] DOV x10(3)/[facility] LABORATORY RBC 4.58 4.58 - [place] DOV 5.54 [facility] x10(6)/[facility] LABORATORY Hemoglobin 13.5 (L) 13.7 - [place] DOV 16.5 gm/dL [facility] LABORATORY Hematocrit 40.8 40.5 - [place] DOV 48.5 % [facility] LABORATORY MCV 89.1 82.9 - [place] DOV 93.1 [facility] LABORATORY MCH 29.5 27.5 - [place] DOV 32.1 pg [facility] LABORATORY MCHC 33.1 32.0 - [place] DOV 35.7 gm/dL [facility] LABORATORY Platelets 238 145 - 357 [place] D[facility] x10(3)/[facility] LABORATORY RDWSD 48.8 (H) 36.0 - [place] DOV 45.0 [facility] LABORATORY RDWCV 15.0 (H) 11.4 - [facility] DOV 13.8 % [facility] LABORATORY MPV 12.2 7.6 - 12.9 [place] DOV [facility] LABORATORY nRBC % Auto 0.0 % [facility] LABORATORY nRBC Abs Auto 0.000 0.000 - [place] MONAE 0.000 [facility] x10(3)/[facility] LABORATORY Specimen Anatomical Collection Method Collection Time Receive d Time (Source) Location / / Volume Laterality Blood specimen 12/07/2019 4:02 PM 020 4:08 (specimen) EDT PM EDT Resulting Agency Comment Spec In Lab Gretchen Yoon MD HEMATOLOGY ORDERABLES Performing Organization Address City/[facility]/[place] [address] EKG 12 Lead (12/07/2019 [...] (Bezet) Calculated P -12 degrees MUSE SYSTEM [place] Calculated R 10 degrees MUSE SYSTEM [place] Calculated T -138 degrees MUSE SYSTEM [place] INTERPRETATION Supraventricular tachycardia MUSE SYSTEM Low voltage [...] athologist Signature Potassium 4.2 3.5 - 5.0 [facility] mmol/L [facility] LABORATORY Comment: Please note: ??Patients with [...] Lagos MD CHEMISTRY ORDERABLES Performing Organization Address [facility] [place] [address] Heparin (unfractionated) Level (12/07/2019 [...] Lagos MD HEMATOLOGY ORDERABLES Performing Organization Address [facility] [place] [address] Heparin (unfractionated) Level (12/07/2019 [...] City/State/[place] [address] (ABNORMAL) Differential, Automated (12/07/2019 5:20 AM EDT) Patholo gist Method Time Signature Neutrophils % 62.4 % [facility] LABORATORY Neutr Abs (ANC) 5.46 1.70 - [facility] 6.10 [facility] x10(3)/[facility] LABORATORY Lymphocytes % 20.3 % [facility] LABORATORY Lymphocytes Abs 1.8 0.9 - 3.2 [facility] x10(3)/[facility] LABORATORY Monocytes % 11.0 % [facility] LABORATORY Monocyte Abs 1.0 (H) 0.3 - 0.9 [facility] x10(3)/[facility] LABORATORY Eosinophils % 4.5 % [facility] LABORATORY Eosinophils Abs 0.4 0.0 - 0.4 [facility] x10(3)/[facility] LABORATORY Basophils % 0.9 % [facility] LABORATORY Basophils Abs 0.1 0.0 - 0.1 [facility] x10(3)/[facility] LABORATORY Immature Gran % 0.90 % [...] Gran Abs 0.08 (H) 0.00 - 0.04 x10(3)/[facility] LABORATORY Specimen Anatomical Collection Method Collection Time Receive d Time (Source) Location / / Volume Laterality Blood specimen 12/07/2019 5:20 AM 020 5:37 (specimen) EDT AM EDT Resulting Agency Comment Spec In Lab Riki Stevens MD HEMATOLOGY ORDERABLES Performing Organization Address City/State/[place] [address] (ABNORMAL) Hemogram (12/07/2019 5:20 AM EDT) Analysis Performed At Patho logist Time Signature WBC 8.7 4.0 - 9.5 [facility] x10(3)/[facility] LABORATORY RBC 4.20 (L) 4.58 - [facility] 5.54 [facility] x10(6)/[facility] LABORATORY Hemoglobin 12.3 (L) 13.7 - [facility] 16.[facility] gm/dL [facility] LABORATORY Hematocrit 37.4 (L) 40.5 - [facility] 48.5 % [facility] LABORATORY MCV 89.0 82.9 - [facility] 93.1 fL [facility] LABORATORY MCH 29.3 27.5 - [facility] 32.1 pg [facility] LABORATORY MCHC 32.9 32.0 - [place] MONAE 35.7 gm/dL [facility] LABORATORY Platelets 181 145 - 357 [place] MONAE x10(3)/[facility] LABORATORY RDWSD 47.7 (H) 36.0 - [place] MONAE 45.0 [facility] LABORATORY RDWCV 14.8 (H) 11.4 - [place] MONAE 13.8 % [facility] LABORATORY MPV 12.3 7.6 - 12.9 [place] DOV [facility] LABORATORY nRBC % Auto 0.0 % [facility] LABORATORY nRBC Abs Auto 0.000 0.000 - [place] MONAE 0.000 [facility] x10(3)/[facility] LABORATORY Specimen Anatomical Collection Method Collection Time Receive d Time (Source) Location / / Volume Laterality Blood specimen 12/07/2019 5:20 AM 020 5:37 (specimen) EDT AM EDT Resulting Agency Comment Spec In Lab Riki Stevens MD HEMATOLOGY ORDERABLES Performing Organization Address City/[facility]/ZIP Code Phon e Number [address] Magnesium (12/07/2019 5:20 AM EDT) P athologist Signature Magnesium 0.89 0.69 - 1.07 [facility]/L [facility] LABORATORY Specimen Anatomical Collection Method Collection Time Receive d Time (Source) Location / / Volume Laterality Blood specimen 12/07/2019 5:20 AM 020 5:37 (specimen) EDT AM EDT Resulting Agency Comment Spec In Lab Gretchen Yoon MD CHEMISTRY ORDERABLES Performing Organization Address City/[facility]/ZIP Code Phon e Number [address] (ABNORMAL) BMP w/fasting Glucose (12/07/2019 5:20 AM EDT) P athologist Signature Glucose 100 (H) 65 - 99 [facility] Fasting mg/dL [facility] LABORATORY Comment: ?Fasting* Glucose Interpretive C [...] of Diabetes Mellitus, Position Statement from the [employer]. ??Diabete s Care, Volume 33, Supplement 1, Jul 2009 BUN 14 10 - 20 mg/dL [facility] LABORATORY Creatinine 0.83 0.80 - 1.50 mg/dL [facility] LABORATORY Sodium 135 135 - 145 mmol/L [facility] LABORATORY Potassium 3.8 3.5 - 5.0 mmol/L [facility] LABORATORY Comment: Please note: ??Patients with [...] Anion Gap 14 5 - 15 mmol/L [facility] LABORATORY Calcium 8.8 8.5 - 10.5 mg/dL [facility] LABORATORY Estimated GFR 87 >=60 mL/min/1.73 m?? [facility] LABORATORY Comment: The eGFR was calculated using the CKD-EP I equation. As with all creatinine based estimates of kidney function, eGFR values calculated with the CKD-EPI equation are not accurate in patients wi th acute kidney failure, extremes of body mass or the acutely ill. http://CodeNgo/DHMCnkf eGFR 101 >=60 mL/min/1.73 m?? [facility] LABORATORY Comment: The eGFR was calculated using the CKD-EP I equation. As with all creatinine based estimates of kidney function, eGFR values calculated with the CKD-EPI equation are not accurate in patients wi th acute kidney failure, extremes of body mass or the acutely ill. [email or web address] Specimen Anatomical Collection Method Collection Time Receive d Time (Source) Location / / Volume Laterality Blood specimen 12/07/2019 5:20 AM 020 5:37 (specimen) EDT AM EDT Resulting Agency Comment Spec In Lab Gretchen Yoon MD CHEMISTRY ORDERABLES Performing Organization Address [facility] [place] [address] Heparin (unfractionated) Level (12/06/2019 [...] Lagos MD HEMATOLOGY ORDERABLES Performing Organization Address [facility] [place] [address] Head wo Contrast [...] For questions regarding this report, please contact [facility] number below. ? Electronically signed by: Merari Collins [facility] ([phone]), at 12/06/2019 10:06 PM Narrative 12/06/2019 10:06 [...] Electronically signed by: Merari Collins [facility] ([phone]), at 12/06/2019 10:06 PM [place] Lagos MD IMG CT ORDERABLES (ABNORMAL) Hemogram (12/06/2019 4:20 PM EDT) Analysis Performed At Patho logist Time Signature WBC 10.4 (H) 4.0 - 9.5 [facility] LABORATORY RBC 4.32 (L) 4.58 - [facility] DOV 5.54 [facility] x10(6)/[facility] LABORATORY Hemoglobin 12.5 (L) 13.7 - [facility] 16.5 gm/dL [facility] LABORATORY Hematocrit 38.4 (L) 40.5 - [facility] 48.5 % [facility] LABORATORY MCV 88.9 82.9 - [facility] 93.1 [facility] LABORATORY MCH 28.9 27.5 - [facility] DOV 32.1 pg [facility] LABORATORY MCHC 32.6 32.0 - [facility] 35.7 gm/dL [facility] LABORATORY Platelets 194 145 - 357 [facility] x10(3)/[facility] LABORATORY RDWSD 46.9 (H) 36.0 - [facility] 45.0 [facility] LABORATORY RDWCV 14.6 (H) 11.4 - [facility] 13.8 % [facility] LABORATORY MPV 11.9 7.6 - 12.9 [facility] LABORATORY nRBC % Auto 0.0 % [facility] LABORATORY nRBC Abs Auto 0.000 0.000 - [facility] DOV 0.000 [facility] x10(3)/[facility] LABORATORY Specimen Anatomical Collection Method Collection Time Receive d Time (Source) Location / / Volume Laterality Blood specimen 12/06/2019 4:20 PM 020 4:31 (specimen) EDT PM EDT Resulting Agency Comment Spec In Lab Gretchen Yoon MD HEMATOLOGY ORDERABLES Performing Organization Address City/State/[place] [address] Heparin (unfractionated) Level (12/06/2019 [...] City/State/[place] [address] Heparin (unfractionated) Level (12/06/2019 [...] Lagos MD HEMATOLOGY ORDERABLES Performing Organization Address City/[facility]/ZIP Code Phon e Number [address] Magnesium (12/06/2019 3:36 AM EDT) P athologist Signature Magnesium 0.86 0.69 - 1.07 [facility] mmol/L [facility] LABORATORY Specimen Anatomical Collection Method Collection Time Receive d Time (Source) Location / / Volume Laterality Blood specimen 12/06/2019 3:36 AM 020 3:45 (specimen) EDT AM EDT Resulting Agency Comment Spec In Lab Gretchen Yoon MD CHEMISTRY ORDERABLES Performing Organization Address City/[facility]/ZIP Code Phon e Number [address] (ABNORMAL) BMP w/fasting Glucose (12/06/2019 3:36 AM EDT) P athologist Signature Glucose 103 (H) 65 - 99 [facility] Fasting mg/dL [facility] LABORATORY Comment: ?Fasting* Glucose Interpretive C [...] of Diabetes Mellitus, Position Statement from the [place] [employer]. ??Diabete s Care, Volume 33, Supplement 1, Jul 2009 BUN 20 10 - 20 mg/dL [facility] LABORATORY Creatinine 0.88 0.80 - 1.50 mg/dL [facility] LABORATORY Sodium 136 135 - 145 mmol/L [facility] LABORATORY Potassium 4.0 3.5 - 5.0 mmol/L [facility] LABORATORY Comment: Please note: ??Patients with [...] Anion Gap 14 5 - 15 mmol/L [facility] LABORATORY Calcium 8.7 8.5 - 10.5 mg/dL [facility] LABORATORY Estimated GFR 85 >=60 mL/min/1.73 m?? [facility] LABORATORY Comment: The eGFR was calculated using the CKD-EP I equation. As with all creatinine based estimates of kidney function, eGFR values calculated with the CKD-EPI equation are not accurate in patients wi th acute kidney failure, extremes of body mass or the acutely ill. http://CodeNgo/MCnkf eGFR 99 >=60 mL/min/1.73 m?? [facility] LABORATORY Comment: The eGFR was calculated using the CKD-EP I equation. As with all creatinine based estimates of kidney function, eGFR values calculated with the CKD-EPI equation are not accurate in patients wi th acute kidney failure, extremes of body mass or the acutely ill. http://[email or web address] Specimen Anatomical Collection Method Collection Time Receive d Time (Source) Location / / Volume Laterality Blood specimen 12/06/2019 3:36 AM 020 3:45 (specimen) EDT AM EDT Resulting Agency Comment Spec In Lab Gretchen Yoon MD CHEMISTRY ORDERABLES Performing Organization Address City/State/ZIP Code Phon e Number [address] (ABNORMAL) Hemogram (12/06/2019 3:36 AM EDT) Analysis Performed At Patho logist Time Signature WBC 9.2 4.0 - 9.5 [facility] LABORATORY RBC 3.99 (L) 4.58 - [place] D[facility] 5.54 [facility] x10(6)/[facility] LABORATORY Hemoglobin 11.9 (L) 13.7 - [facility] 16.5 gm/dL [facility] LABORATORY Hematocrit 35.5 (L) 40.5 - [facility] 48.5 % [facility] LABORATORY MCV 89.0 82.9 - [facility] 93.1 [facility] LABORATORY MCH 29.8 27.5 - [place] DOV 32.1 pg [facility] LABORATORY MCHC 33.5 32.0 - [place] DOV 35.7 gm/dL [facility] LABORATORY Platelets 164 145 - 357 [facility] x10(3)/[facility] LABORATORY RDWSD 47.6 (H) 36.0 - [place] DOV 45.0 [facility] LABORATORY RDWCV 14.7 (H) 11.4 - [facility] 13.8 % [facility] LABORATORY MPV 11.9 7.6 - 12.9 [facility] LABORATORY nRBC % Auto 0.0 % [facility] LABORATORY nRBC Abs Auto 0.000 0.000 - [facility] DOV 0.000 [facility] x10(3)/[facility] LABORATORY Specimen Anatomical Collection Method Collection Time Receive d Time (Source) Location / / Volume Laterality Blood specimen 12/06/2019 3:36 AM 020 3:45 (specimen) EDT AM EDT Resulting Agency Comment Spec In Lab Gretchen Yoon MD HEMATOLOGY ORDERABLES Performing Organization Address City/[facility]/ZIP Code Phon e Number [address] (ABNORMAL) Differential, Automated (12/05/2019 10:52 PM EDT) Patholo gist Method Time Signature Neutrophils % 61.9 % [facility] LABORATORY Neutr Abs (ANC) 6.02 1.70 - [facility] 6.10 [facility] x10(3)/[facility] LABORATORY Lymphocytes % 22.4 % [facility] LABORATORY Lymphocytes Abs 2.2 0.9 - 3.2 [facility] x10(3)/[facility] LABORATORY Monocytes % 10.4 % [facility] LABORATORY Monocyte Abs 1.0 (H) 0.3 - 0.9 [facility] x10(3)/[facility] LABORATORY Eosinophils % 4.1 % [facility] LABORATORY Eosinophils Abs 0.4 0.0 - 0.4 [facility] x10(3)/[facility] LABORATORY Basophils % 0.7 % [facility] LABORATORY Basophils Abs 0.1 0.0 - 0.1 [facility] x10(3)/[facility] LABORATORY Immature Gran % 0.50 % [...] Gran Abs 0.05 (H) 0.00 - 0.04 x10(3)/[facility] LABORATORY Specimen Anatomical Collection Method Collection Time Receive d Time (Source) Location / / Volume Laterality Blood specimen 12/05/2019 10:52 0 (specimen) PM EDT 10:59 PM EDT Resulting Agency Comment Spec In Lab Mandi Barrera MD HEMATOLOGY ORDERABLES Performing Organization Address City/State/[place] [address] (ABNORMAL) Hemogram (12/05/2019 10:52 PM EDT) Analysis Performed At [facility] logist Time Signature WBC 9.7 (H) 4.0 - 9.5 [facility] x10(3)/[facility] LABORATORY RBC 4.07 (L) 4.58 - [place] DOV 5.54 [facility] x10(6)/[facility] LABORATORY Hemoglobin 11.9 (L) 13.7 - [place] 16.5 gm/dL [facility] LABORATORY Hematocrit 36.4 (L) 40.5 - [place] 48.5 % [facility] LABORATORY MCV 89.4 82.9 - [facility] 93.1 [facility] LABORATORY MCH 29.2 27.5 - [place] DOV 32.1 pg [facility] LABORATORY MCHC 32.7 32.0 - [place] DOV 35.7 gm/dL [facility] LABORATORY Platelets 167 145 - 357 [facility] x10(3)/[facility] LABORATORY RDWSD 47.7 (H) 36.0 - [facility] 45.0 [facility] LABORATORY RDWCV 14.6 (H) 11.4 - [facility] 13.8 % [facility] LABORATORY MPV 12.1 7.6 - 12.9 [facility] LABORATORY nRBC % Auto 0.0 % [facility] LABORATORY nRBC Abs Auto 0.000 0.000 - [facility] 0.000 [facility] x10(3)/[facility] LABORATORY Specimen Anatomical Collection Method Collection Time Receive d Time (Source) Location / / Volume Laterality Blood specimen 12/05/2019 10:52 0 (specimen) PM EDT 10:59 PM EDT Resulting Agency Comment Spec In Lab Mandi Barrera MD HEMATOLOGY ORDERABLES Performing Organization Address City/State/[place] [address] Heparin (unfractionated) Level (12/05/2019 [...] Organization Address City/State/[place] [address] MRI Brain wwo Contrast [...] Electronically signed by: Merari Collins [facility] ([phone]), at 12/05/2019 10:02 PM Narrative 12/05/2019 10:02 [...] number below. Electronically signed by: ALBA Jenkins [facility] ([phone]), at 12/05/2019 10:02 PM [place] Lagos MD IMG MRI ORDERABLES (ABNORMAL) Hemogram (12/05/2019 1:00 PM EDT) Analysis Performed At Patho logist Time Signature WBC 8.7 4.0 - 9.5 [facility] x10(3)/[facility] LABORATORY RBC 4.17 (L) 4.58 - [facility] 5.54 [facility] x10(6)/[facility] LABORATORY Hemoglobin 12.4 (L) 13.7 - [facility] 16.5 gm/dL [facility] LABORATORY Hematocrit 37.0 (L) 40.5 - [facility] 48.5 % [facility] LABORATORY MCV 88.7 82.9 - [facility] 93.1 [facility] LABORATORY MCH 29.7 27.5 - [facility] 32.1 pg [facility] LABORATORY MCHC 33.5 32.0 - [facility] 35.7 gm/dL [facility] LABORATORY Platelets 173 145 - 357 [facility] x10(3)/[facility] LABORATORY RDWSD 47.3 (H) 36.0 - [facility] 45.0 [facility] LABORATORY RDWCV 14.6 (H) 11.4 - [facility] 13.8 % [facility] LABORATORY MPV 12.1 7.6 - 12.9 [facility] LABORATORY nRBC % Auto 0.0 % [facility] LABORATORY nRBC Abs Auto 0.000 0.000 - [facility] 0.000 [facility] x10(3)/[facility] LABORATORY Specimen Anatomical Collection Method Collection Time Receive d Time (Source) Location / / Volume Laterality Blood specimen 12/05/2019 1:00 PM 020 1:13 (specimen) EDT PM EDT Resulting Agency Comment Spec In Lab Gretchen Yoon MD HEMATOLOGY ORDERABLES Performing Organization Address City/State/[place] [address] EKG 12 Lead (12/05/2019 10:52 AM EDT) Component Value Ref Range Test Analysis Performed Pathologis t Method Time At Signature Ventricular rate 72 BPM MUSE SYSTEM Atrial Rate 72 BPM MUSE SYSTEM P-R Interval 138 ms MUSE SYSTEM QRS Duration 96 ms MUSE SYSTEM Q-T Interval 396 ms MUSE SYSTEM QTC Calculated 433 ms MUSE SYSTEM (Bezet) Calculated P [place] 65 degrees MUSE SYSTEM Calculated R [place] 13 degrees MUSE SYSTEM Calculated T [place] 0 degrees MUSE SYSTEM INTERPRETATION Sinus rhythm Occasional Premature ventricular complexe s MUSE SYSTEM Possible Inferior infarct (cited on or before 29-NOV-2019) Abnormal ECG When compared with ECG of 04-DEC-2019 10:43, Sinus rhythm has replaced Atrial fibrillation Vent. rate has decreased BY ??86 BPM Confirmed by MD Ceja Daniel ([id number]) on 12/05/2019 3:55:22 PM Specimen Anatomical Collection [...] Department: Vascular Surgery Lab VASCUBASE Report Patient: [id number] (ANGEL LUIS SALINAS) CPT: 26434 ICD10: I26.99 Referring Physician: GRETCHEN YOON ?? [...] athologist Signature Magnesium 0.87 0.69 - 1.07 [facility] mmol/L [facility] LABORATORY Specimen Anatomical Collection Method Collection Time Receive d Time (Source) Location / / Volume Laterality Blood specimen 12/05/2019 4:18 AM 020 4:31 (specimen) EDT AM EDT Resulting Agency Comment Spec In Lab Gretchen Yoon MD CHEMISTRY ORDERABLES Performing Organization Address City/[facility]/[place]IP [facility] [place] [address] (ABNORMAL) BMP w/fasting Glucose (12/05/2019 4:18 AM EDT) P athologist Signature Glucose 104 (H) 65 - 99 [facility] Fasting mg/dL [facility] LABORATORY Comment: ?Fasting* Glucose Interpretive C [...] of Diabetes Mellitus, Position Statement from the [place] [employer]. ??Diabete s Care, Volume 33, Supplement 1, Jul 2009 BUN 21 (H) 10 - 20 mg/dL [facility] LABORATORY Creatinine 1.02 0.80 - 1.50 mg/dL [facility] LABORATORY Sodium 136 135 - 145 mmol/L [facility] LABORATORY Potassium 3.9 3.5 - 5.0 mmol/L [facility] Comment: Please note: ??Patients with [...] Anion Gap 12 5 - 15 mmol/L [facility] Calcium 8.8 8.5 - 10.5 mg/dL [facility] Estimated GFR 73 >=60 mL/min/1.73 m?? [facility] Comment: The eGFR was calculated using the CKD-EP I equation. As with all creatinine based estimates of kidney function, eGFR values calculated with the CKD-EPI equation are not accurate in patients wi th acute kidney failure, extremes of body mass or the acutely ill. [email or web address]ONnkf eGFR 84 >=60 mL/min/1.73 m?? [facility] Comment: The eGFR was calculated using the CKD-EP I equation. As with all creatinine based estimates of kidney function, eGFR values calculated with the CKD-EPI equation are not accurate in patients wi th acute kidney failure, extremes of body mass or the acutely ill. [email or web address]ONnkf Specimen Anatomical Collection Method Collection Time Receive d Time (Source) Location / / Volume Laterality Blood specimen 12/05/2019 4:18 AM 020 4:31 (specimen) EDT AM EDT Resulting Agency Comment Spec In Lab Gretchen Yoon MD CHEMISTRY ORDERABLES Performing Organization Address City/State/[place] [address] (ABNORMAL) Hemogram (12/05/2019 4:18 AM EDT) Analysis Performed At Patho logist Time Signature WBC 8.6 4.0 - 9.5 [facility] x10(3)/[facility] LABORATORY RBC 4.28 (L) 4.58 - [facility] DOV 5.54 [facility] x10(6)/[facility] LABORATORY Hemoglobin 12.4 (L) 13.7 - [facility] 16.5 gm/dL [facility] Hematocrit 37.3 (L) 40.5 - [facility] 48.5 % [facility] MCV 87.1 82.9 - [facility] 93.1 [facility]ATORY MCH 29.0 27.5 - [facility] 32.1 pg [facility] MCHC 33.2 32.0 - [facility] 35.7 gm/dL [facility] Platelets 163 145 - 357 [facility] x10(3)/[facility] LABORATORY RDWSD 46.4 (H) 36.0 - [facility] 45.0 [facility] LABORATORY RDWCV 14.4 (H) 11.4 - [facility] 13.8 % [facility] MPV 11.7 7.6 - 12.9 [facility] LABORATORY nRBC % Auto 0.0 % [facility] nRBC Abs Auto 0.000 0.000 - [facility] 0.000 [facility] x10(3)/[facility] LABORATORY Specimen Anatomical Collection Method Collection Time Receive d Time (Source) Location / / Volume Laterality Blood specimen 12/05/2019 4:18 AM 020 4:31 (specimen) EDT AM EDT Resulting Agency Comment Spec In Lab Gretchen Yoon MD HEMATOLOGY ORDERABLES Performing Organization Address City/State/[place] [address] Cardiac for Morphology [...] For questions regarding this report, please contact [facility] number below. ? Electronically signed by: Roselyn Luciano, [facility] ([phone]), at 12/04/2019 6:16 PM Narrative 12/04/2019 6:16 [...] WBC 8.9 4.0 - 9.5 [facility] DOV x10(3)/[facility] LABORATORY RBC 4.69 4.58 - [place] DOV 5.54 [facility] x10(6)/[facility] LABORATORY Hemoglobin 13.5 (L) 13.7 - [place] DOV 16.5 gm/dL [facility] Hematocrit 41.7 40.5 - [place] DOV 48.5 % [facility] MCV 88.9 82.9 - [place] DOV 93.1 fL [facility] MCH 28.8 27.5 - [place] DOV 32.1 pg [facility] MCHC 32.4 32.0 - [place] DOV 35.7 gm/dL [facility] Platelets 196 145 - 357 [facility] DOV x10(3)/[facility] LABORATORY RDWSD 46.7 (H) 36.0 - [place] MONAE 45.0 [facility] LABORATORY RDWCV 14.5 (H) 11.4 - [place] MONAE 13.8 % [facility] MPV 12.1 7.6 - 12.9 M[place] MONAE [facility] LABORATORY nRBC % Auto 0.0 % [facility] nRBC Abs Auto 0.000 0.000 - [facility] MONAE 0.000 [facility] x10(3)/[facility] LABORATORY Specimen Anatomical Collection Method Collection Time Receive d Time (Source) Location / / Volume Laterality Blood specimen 12/04/2019 12:55 0 1:06 (specimen) PM EDT PM EDT Resulting Agency Comment Spec In Lab Gretchen Yoon MD HEMATOLOGY ORDERABLES Performing Organization Address City/[facility]/[place]IP [place] [address] EKG 12 Lead (12/04/2019 10:43 AM EDT) Component Value Ref Range Test Analysis Performed Pathologis t Method Time At Signature Ventricular rate 158 BPM MUSE SYSTEM Atrial Rate 102 BPM MUSE SYSTEM QRS Duration 92 ms MUSE SYSTEM Q-T Interval 294 ms MUSE SYSTEM QTC Calculated 476 ms MUSE SYSTEM (Bezet) Calculated R [place] 17 degrees MUSE SYSTEM Calculated T [place] 90 degrees MUSE SYSTEM INTERPRETATION Atrial fibrillation with rapid ventricular response MUSE SYSTEM Possible Inferior infarct (cited on or before 29-NOV-2019) Abnormal ECG When compared with ECG of 30-NOV-2019 21:07, Atrial fibrillation has replaced Sinus rhythm Vent. rate has increased BY ??65 BPM Confirmed by MD Brenna, Faustino ([id number]) on 12/05/2019 8:59:44 AM Specimen Anatomical Collection Method Collection Time Receive d Time (Source) Location / / Volume Laterality 12/04/2019 10:43 12/05/2019 8:59 AM EDT AM EDT Gretchen Yoon MD ECG ORDERABLES Performing Organization Address City/State/ZIP Code Phon e Number MUSE SYSTEM (ABNORMAL) Magnesium (12/04/2019 4:28 AM EDT) P athologist Signature Magnesium 1.17 (H) 0.69 - 1.07 [facility] mmol/L [facility] Specimen Anatomical Collection Method Collection Time Receive d Time (Source) Location / / Volume Laterality Blood specimen 12/04/2019 4:28 AM 020 4:40 (specimen) EDT AM EDT Resulting Agency Comment Spec In Lab Gretchen Yoon MD CHEMISTRY ORDERABLES Performing Organization Address City/State/[place] [address] (ABNORMAL) BMP w/fasting Glucose (12/04/2019 4:28 AM EDT) athologist Signature Glucose 108 (H) 65 - 99 [facility] Fasting mg/dL [facility] Comment: ?Fasting* Glucose Interpretive C [...] of Diabetes Mellitus, Position Statement from the [employer]. ??Diabete s Care, Volume 33, Supplement 1, Jul 2009 BUN 19 10 - 20 mg/dL [facility] Creatinine 0.89 0.80 - 1.50 mg/dL [facility] Sodium 135 135 - 145 mmol/L [facility] Potassium 4.2 3.5 - 5.0 mmol/L [facility] Comment: Please note: ??Patients with [...] Anion Gap 12 5 - 15 mmol/L [facility] Calcium 8.5 8.5 - 10.5 mg/dL [facility] Estimated GFR 85 >=60 mL/min/1.73 m?? [facility] Comment: The eGFR was calculated using the CKD-EP I equation. As with all creatinine based estimates of kidney function, eGFR values calculated with the CKD-EPI equation are not accurate in patients wi th acute kidney failure, extremes of body mass or the acutely ill. [email or web address]ONnkf eGFR 98 >=60 mL/min/1.73 m?? [facility] Comment: The eGFR was calculated using the CKD-EP I equation. As with all creatinine based estimates of kidney function, eGFR values calculated with the CKD-EPI equation are not accurate in patients wi th acute kidney failure, extremes of body mass or the acutely ill. [email or web address]ONnkf Specimen Anatomical Collection Method Collection Time Receive d Time (Source) Location / / Volume Laterality Blood specimen 12/04/2019 4:28 AM 020 4:40 (specimen) EDT AM EDT Resulting Agency Comment Spec In Lab Gretchen Yoon MD CHEMISTRY ORDERABLES Performing Organization Address City/State/[place] [address] (ABNORMAL) Hemogram (12/04/2019 4:28 AM EDT) Analysis Performed At Patho logist Time Signature WBC 7.8 4.0 - 9.5 [facility] x10(3)/[facility] LABORATORY RBC 4.10 (L) 4.58 - [facility] 5.54 [facility] x10(6)/[facility] LABORATORY Hemoglobin 12.0 (L) 13.7 - [facility] 16.5 gm/dL [facility] Hematocrit 36.5 (L) 40.5 - [facility] 48.5 % [facility] MCV 89.0 82.9 - [facility] 93.1 fL [facility] MCH 29.3 27.5 - [place] MONAE 32.1 pg [facility] MCHC 32.9 32.0 - [place] MONAE 35.7 gm/dL [facility] Platelets 151 145 - 357 [facility] x10(3)/[facility] LABORATORY RDWSD 46.9 (H) 36.0 - [place] MONAE 45.0 [facility] LABORATORY RDWCV 14.4 (H) 11.4 - [place] MONAE 13.8 % [facility] MPV 12.2 7.6 - 12.9 [facility] MONAE fL [facility] nRBC % Auto 0.0 % [facility] nRBC Abs Auto 0.000 0.000 - [facility] MONAE 0.000 [facility] x10(3)/[facility] LABORATORY Specimen Anatomical Collection Method Collection Time Receive d Time (Source) Location / / Volume Laterality Blood specimen 12/04/2019 4:28 AM 020 4:40 (specimen) EDT AM EDT Resulting Agency Comment Spec In Lab Gretchen Yoon MD HEMATOLOGY ORDERABLES Performing Organization Address City/[facility]/ZIP Code Phon e Number [address] Potassium (12/03/2019 7:55 PM EDT) athologist Signature Potassium 3.9 3.5 - 5.0 [facility] mmol/L [facility] Comment: Please note: ??Patients with [...] Yoon MD CHEMISTRY ORDERABLES Performing Organization Address City/[facility]/ZIP [facility] Phon e Number [address] Potassium (12/03/2019 1:57 PM EDT) athologist Signature Potassium 3.7 3.5 - 5.0 [facility] mmol/L [facility] Comment: Please note: ??Patients with [...] City/State/[place] [address] (ABNORMAL) Hemogram (12/03/2019 1:57 PM EDT) Analysis Performed At Patho logist Time Signature WBC 8.8 4.0 - 9.5 [facility] DOV x10(3)/[facility] LABORATORY RBC 4.27 (L) 4.58 - [place] DOV 5.54 [facility] x10(6)/[facility] LABORATORY Hemoglobin 12.5 (L) 13.7 - [place] D[facility] 16.5 gm/dL [facility] Hematocrit 37.5 (L) 40.5 - [place] DOV 48.5 % [facility] MCV 87.8 82.9 - [place] DOV 93.1 [facility] LABORATORY MCH 29.3 27.5 - [place] DOV 32.1 pg [facility] MCHC 33.3 32.0 - [place] DOV 35.7 gm/dL [facility] Platelets 158 145 - 357 [facility] DOV x10(3)/[facility] LABORATORY RDWSD 46.9 (H) 36.0 - M[place] ODV 45.0 [facility] LABORATORY RDWCV 14.5 (H) 11.4 - [place] DOV 13.8 % [facility] MPV 12.2 7.6 - 12.9 [place] DOV [facility] LABORATORY nRBC % Auto 0.0 % [facility] nRBC Abs Auto 0.000 0.000 - [place] [facility] x[facility](3[facility] LABORATORY Specimen Anatomical Collection Method Collection Time Receive d Time (Source) Location / / Volume Laterality Blood specimen 12/03/2019 1:57 PM 020 2:21 (specimen) EDT PM EDT Resulting Agency Comment Spec In Lab Gretchen Yoon MD HEMATOLOGY ORDERABLES Performing Organization Address City/State/ZIP Code Phon e Number [address] Magnesium (12/03/2019 4:02 AM EDT) P athologist Signature Magnesium 0.79 0.69 - 1.07 [facility] mmol/L [facility] Specimen Anatomical Collection Method Collection Time Receive d Time (Source) Location / / Volume Laterality Blood specimen 12/03/2019 4:02 AM 020 4:16 (specimen) EDT AM EDT Resulting Agency Comment Spec In Lab Gretchen Yoon MD CHEMISTRY ORDERABLES Performing Organization Address City/State/[place] [address] (ABNORMAL) BMP w/fasting Glucose (12/03/2019 4:02 AM EDT) P athologist Signature Glucose 100 (H) 65 - 99 [facility] Fasting mg/dL [facility] Comment: ?Fasting* Glucose Interpretive C [...] of Diabetes Mellitus, Position Statement from the [employer]. ??Diabete s Care, Volume 33, Supplement 1, Jul 2009 BUN 17 10 - 20 mg/dL [facility] Creatinine 0.95 0.80 - 1.50 mg/dL [facility] Sodium 136 135 - 145 mmol/L [facility] Potassium 3.4 (L) 3.5 - 5.0 mmol/L [facility] Comment: Please note: ??Patients with [...] Anion Gap 15 5 - 15 mmol/L [facility] Calcium 8.3 (L) 8.5 - 10.5 mg/dL [facility] Estimated GFR 79 >=60 mL/min/1.73 m?? [facility] Comment: The eGFR was calculated using the CKD-EP I equation. As with all creatinine based estimates of kidney function, eGFR values calculated with the CKD-EPI equation are not accurate in patients wi th acute kidney failure, extremes of body mass or the acutely ill. [email or web address]ONnkf eGFR 92 >=60 mL/min/1.73 m?? [facility] Comment: The eGFR was calculated using the CKD-EP I equation. As with all creatinine based estimates of kidney function, eGFR values calculated with the CKD-EPI equation are not accurate in patients wi th acute kidney failure, extremes of body mass or the acutely ill. [email or web address] Specimen Anatomical Collection Method Collection Time Receive d Time (Source) Location / / Volume Laterality Blood specimen 12/03/2019 4:02 AM 020 4:16 (specimen) EDT AM EDT Resulting Agency Comment Spec In Lab rGetchen Yoon MD CHEMISTRY ORDERABLES Performing Organization Address City/State/[place] [address] (ABNORMAL) Hemogram (12/03/2019 4:02 AM EDT) Analysis Performed At Patho logist Time Signature WBC 9.1 4.0 - 9.5 [facility] x10(3)/[facility] LABORATORY RBC 4.01 (L) 4.58 - [facility] MARSHDOV 5.54 [facility] x10(6)/[facility]ORATORY Hemoglobin 11.8 (L) 13.7 - [facility] 16.5 gm/dL [facility] Hematocrit 35.6 (L) 40.5 - [facility] 48.5 % [facility] MCV 88.8 82.9 - [facility] 93.1 [facility]ATORY MCH 29.4 27.5 - [facility] 32.1 pg [facility] MCHC 33.1 32.0 - [facility] 35.7 gm/dL [facility] Platelets 130 (L) 145 - 357 [facility] x10(3)/[facility] LABORATORY RDWSD 46.6 (H) 36.0 - [facility] 45.0 [facility]ATORY RDWCV 14.4 (H) 11.4 - [facility] 13.8 % [facility] MPV 12.4 7.6 - 12.9 [facility] LABORATORY nRBC % Auto 0.0 % [facility] nRBC Abs Auto 0.000 0.000 - [facility] 0.000 [facility] x10(3)/[facility] LABORATORY Specimen Anatomical Collection Method Collection Time Receive d Time (Source) Location / / Volume Laterality Blood specimen 12/03/2019 4:02 AM 020 4:16 (specimen) EDT AM EDT Resulting Agency Comment Spec In Lab Gretchen Yoon MD HEMATOLOGY ORDERABLES Performing Organization Address City/State/[place] [address] XR Chest One View [...] 10.6 (H) 4.0 - 9.5 [facility]ORY RBC 4.00 (L) 4.58 - [facility] DOV 5.54 [facility] x10(6)/[facility] LABORATORY Hemoglobin 11.9 (L) 13.7 - [facility] 16.5 gm/dL [facility] Hematocrit 35.7 (L) 40.5 - [facility] 48.5 % [facility] MCV 89.3 82.9 - [facility] 93.1 [facility] LAB[facility]ATORY MCH 29.8 27.5 - [facility] 32.1 pg [facility] MCHC 33.3 32.0 - [facility] 35.7 gm/dL [facility] Platelets 120 (L) 145 - 357 [facility] x10(3)/[facility]ORATORY RDWSD 47.5 (H) 36.0 - [facility] 45.0 [facility] LABORATORY RDWCV 14.6 (H) 11.4 - [facility] 13.8 % [facility] MPV 12.0 7.6 - 12.9 [facility] LABORATORY nRBC % Auto 0.0 % [facility] nRBC Abs Auto 0.000 0.000 - [facility] 0.000 [facility] x10(3)/[facility] LABORATORY Specimen Anatomical Collection Method Collection Time Receive d Time (Source) Location / / Volume Laterality Blood specimen 12/02/2019 12:50 0 1:22 (specimen) PM EDT PM EDT Resulting Agency Comment Spec In Lab Gretchen Yoon MD HEMATOLOGY ORDERABLES Performing Organization Address City/State/[place] [address] Blue Tube HOLD (12/02/2019 4:55 AM EDT) P athologist Signature Blue Hold Sample in [facility] lab. [facility] Specimen Anatomical Collection Method Collection Time Receive d Time (Source) Location / / Volume Laterality Blood specimen Venous Draw / 12/02/2019 4:55 AM 2019 5:03 (specimen) Unknown EDT AM EDT Darrell Glasgow MD HEMATOLOGY ORDERABLES Performing Organization Address City/State/ZIP Code Phon e Number [address] Magnesium (12/02/2019 4:55 AM EDT) athologist Signature Magnesium 0.85 0.69 - 1.07 [facility] mmol/L [facility] Specimen Anatomical Collection Method Collection Time Receive d Time (Source) Location / / Volume Laterality Blood specimen 12/02/2019 4:55 AM 020 5:02 (specimen) EDT AM EDT Resulting Agency Comment Spec In Lab Gretchen Yoon MD CHEMISTRY ORDERABLES Performing Organization Address City/State/[place] [address] (ABNORMAL) BMP w/fasting Glucose (12/02/2019 4:55 AM EDT) athologist Signature Glucose 114 (H) 65 - 99 [facility] Fasting mg/dL [facility] Comment: ?Fasting* Glucose Interpretive C [...] of Diabetes Mellitus, Position Statement from the [employer] Diabetes [employer]. ??Diabete s Care, Volume 33, Supplement 1, Jul 2009 BUN 13 10 - 20 mg/dL [facility] Creatinine 0.93 0.80 - 1.50 mg/dL [facility] Sodium 135 135 - 145 mmol/L [facility] Potassium 3.7 3.5 - 5.0 mmol/L [facility] Comment: Please note: ??Patients with [...] Anion Gap 12 5 - 15 mmol/L [facility] Calcium 8.1 (L) 8.5 - 10.5 mg/dL [facility] Estimated GFR 81 >=60 mL/min/1.73 m?? [facility] Comment: The eGFR was calculated using the CKD-EP I equation. As with all creatinine based estimates of kidney function, eGFR values calculated with the CKD-EPI equation are not accurate in patients wi th acute kidney failure, extremes of body mass or the acutely ill. [email or web address]nkf eGFR 94 >=60 mL/min/1.73 m?? [facility] Comment: The eGFR was calculated using the CKD-EP I equation. As with all creatinine based estimates of kidney function, eGFR values calculated with the CKD-EPI equation are not accurate in patients wi th acute kidney failure, extremes of body mass or the acutely ill. [email or web address]/[facility]nkf Specimen Anatomical Collection Method Collection Time Receive d Time (Source) Location / / Volume Laterality Blood specimen 12/02/2019 4:55 AM 020 5:02 (specimen) EDT AM EDT Resulting Agency Comment Spec In Lab Gretchen Yoon MD CHEMISTRY ORDERABLES Performing Organization Address City/State/[place] [address] (ABNORMAL) Hemogram (12/02/2019 4:55 AM EDT) Analysis Performed At Patho logist Time Signature WBC 9.3 4.0 - 9.5 [facility] LABORATORY RBC 3.71 (L) 4.58 - [facility] D[facility] 5.54 [facility] x10(6)/[facility] LABORATORY Hemoglobin 10.8 (L) 13.7 - [facility] 16.5 gm/dL [facility] Hematocrit 33.1 (L) 40.5 - [facility] 48.5 % [facility] MCV 89.2 82.9 - [facility] 93.1 [facility] LABORATORY MCH 29.1 27.5 - [facility] 32.1 pg [facility] MCHC 32.6 32.0 - [facility] 35.7 gm/dL [facility] Platelets 93 (L) 145 - 357 [facility] x10(3)/[facility] LABORATORY RDWSD 47.1 (H) 36.0 - [facility] 45.0 [facility] LABORATORY RDWCV 14.6 (H) 11.4 - [facility] 13.8 % [facility] LABORATORY MPV 11.7 7.6 - 12.9 [facility] LABORATORY nRBC % Auto 0.0 % [facility] nRBC Abs Auto 0.000 0.000 - [facility] 0.000 [facility] x10(3)/[facility] LABORATORY Specimen Anatomical Collection Method Collection Time Receive d Time (Source) Location / / Volume Laterality Blood specimen 12/02/2019 4:55 AM 020 5:02 (specimen) EDT AM EDT Resulting Agency Comment Spec In Lab Gretchen Yoon MD HEMATOLOGY ORDERABLES Performing Organization Address City/State/[place] [address] Transfuse 1 unit platelets, [...] For questions regarding this report, please contact [facility] number below. ? Electronically signed by: Angel Luis Barboza MD, [facility] ([phone]), at 12/01/2019 8:02 PM Narrative 12/01/2019 8:02 [...] For questions regarding this report, please contact [facility] number below. Electronically signed by: Angel Luis Barboza MD, [facility] ([phone]), at 12/01/2019 8:02 PM Gretchen Yoon MD IMG MRI ORDERABLES Prepare Platelets, Apheresis (12/01/2019 6:20 PM EDT) P athologist Signature Dispensed? Yes [facility] Specimen Anatomical Collection Method Collection Time Receive d Time (Source) Location / / Volume Laterality Blood specimen 12/01/2019 6:20 PM 020 6:18 (specimen) EDT PM EDT Gretchen Yoon MD BLOOD BANK ORDERABLES Performing Organization Address City/[facility]/[place] [address] Duplex for DVT, Arm, Unilat (12/01/2019 5:08 PM EDT) Component Value Ref Test Analysis Performed At Patholo gist Range Method Time Signature VB Text Department: Vascular Surgery Lab VASCUBASE Report Patient: [id number] (ANGEL LUIS SALINAS) CPT: 68751 ICD10: R60.0 Referring Physician: GRETCHEN YOON ?? [...] For questions regarding this report, please contact [facility] number below. ? Electronically signed by: Merari Collins, [facility] ([phone]), at 12/01/2019 3:53 PM Narrative 12/01/2019 3:53 [...] of the left optic tract (axial se [facility] 2 image 16), consistent with intraparenchymal [...] Decreased [facility] RBC Morphology Normal [facility] Giant Less than 1 /HPF [facility] Platelets [facility] Specimen Anatomical Collection Method Collection Time Receive d Time (Source) Location / / Volume Laterality Blood specimen 12/01/2019 12:51 0 1:05 (specimen) PM EDT PM EDT Resulting Agency Comment Spec In Lab Riki Stevens MD HEMATOLOGY ORDERABLES Performing Organization Address City/State/[place] [address] (ABNORMAL) Differential, Automated (12/01/2019 12:51 PM EDT) [facility] Method Time Signature Neutrophils % 74.9 % [facility] Neutr Abs (ANC) 6.34 (H) 1.70 - [facility] 6.10 [facility] x10(3)/[facility] LABORATORY Lymphocytes % 11.4 % [facility] Lymphocytes Abs 1.0 0.9 - 3.2 [facility] x10(3)/[facility] LABORATORY Monocytes % 12.4 % [facility] Monocyte Abs 1.0 (H) 0.3 - 0.9 [facility] x10(3)/[facility] LABORATORY Eosinophils % 0.4 % [facility] Eosinophils Abs 0.0 0.0 - 0.4 [facility] x10(3)/[facility] LABORATORY Basophils % 0.4 % [facility] Basophils Abs 0.0 0.0 - 0.1 [facility] x10(3)/[facility] LABORATORY Immature Gran % 0.50 % [facility] Comment: Immature granulocytes(IG's)percentage an d absolute count will include metamyelocytes, myelocytes, and promyelo cytes. Blood smears from CBCs yielding IG's will be scanned manually for ana nagy. If this scan disagrees with the automated IG or if promyelocytes are not ed, a manual differential will be performed. Pita Gran Abs 0.04 0.00 - 0.04 x10(3)/[facility] LABORATORY Specimen Anatomical Collection Method Collection Time Receive d Time (Source) Location / / Volume Laterality Blood specimen 12/01/2019 12:51 0 1:05 (specimen) PM EDT PM EDT Resulting Agency Comment Spec In Lab Riki Stevens MD HEMATOLOGY ORDERABLES Performing Organization Address City/State/ZIP Code Phon e Number [place] [phone]OSP[address] LAB[address]ORY [address] (ABNORMAL) Hemogram (12/01/2019 12:51 PM EDT) Analysis Performed At Patho logist Time Signature WBC 8.4 4.0 - 9.5 [facility] LABORATORY RBC 3.69 (L) 4.58 - [facility] 5.54 [facility] x10(6)/[facility] LABORATORY Hemoglobin 10.8 (L) 13.7 - [facility] 16.5 gm/dL [facility] Hematocrit 32.4 (L) 40.5 - [facility] 48.5 % [facility] MCV 87.8 82.9 - [facility] 93.1 [facility] LABORATORY MCH 29.3 27.5 - MELINA DOV 32.1 pg [facility] MCHC 33.3 32.0 - [facility] DOV 35.7 gm/dL [facility] Platelets 72 (L) 145 - 357 [facility] LABORATORY RDWSD 47.2 (H) 36.0 - [facility] 45.0 [facility] LABORATORY RDWCV 14.6 (H) 11.4 - [facility] DOV 13.8 % [facility] MPV 12.2 7.6 - 12.9 [facility] LABORATORY nRBC % Auto 0.0 % [facility] nRBC Abs Auto 0.000 0.000 - [facility] 0.000 [facility] x10(3)/[facility] LABORATORY Specimen Anatomical Collection Method Collection Time Receive d Time (Source) Location / / Volume Laterality Blood specimen 12/01/2019 12:51 0 1:05 (specimen) PM EDT PM EDT Resulting Agency Comment Spec In Lab Riki Stevens MD HEMATOLOGY ORDERABLES Performing Organization Address City/State/ZIP Code Phon e Number [address] (ABNORMAL) Coox2 (12/01/2019 11:42 AM EDT) Analysis Performed At Patho logist Time Signature pO2 Coox 30 mmHg [facility] Hgb Blood Gas 11.6 (L) 13.7 - [facility] 16.5 gm/dL [facility] O2HB Coox 60.8 % [facility] COHB Coox 0.6 % [facility] Comment: Nonsmokers: 0.5-1.5% COHB Smokers: Variable, but usually less than 10% Toxic: 20-30% COHB Lethal: Greater than 60% COHB METHB Coox 0.6 <=1.5 % [facility] Source Coox Mixed Venous [facility] Specimen Anatomical Collection Method Collection Time Receive d Time (Source) Location / / Volume Laterality Blood specimen 12/01/2019 11:42 0 (specimen) AM EDT 11:42 AM EDT Gretchen Yoon MD CHEMISTRY ORDERABLES Performing Organization Address City/State/[place] [address] Sedimentation rate (12/01/2019 3:55 AM EDT) P athologist Signature Sed Rate 25 3 - 46 [facility] mm/hr [facility] Comment: Effective June 11, 2019 [...] Winn MD HEMATOLOGY ORDERABLES Performing Organization Address City/[facility]/[place] [address] (ABNORMAL) CRP, acute inflammation [...] Winn MD CHEMISTRY ORDERABLES Performing Organization Address City/[facility]/ZIP Code Phon e Number [address] ABORH Recheck Status (12/01/2019 3:55 AM EDT) [facility] Method Time Signature ABORH Recheck Order Placed [facility] LABORATORY ABORH Type Complete [facility] LABORATORY Specimen Anatomical Collection Method Collection Time Receive d Time (Source) Location / / Volume Laterality Blood specimen 12/01/2019 3:55 AM 020 4:15 (specimen) EDT AM EDT Resulting Agency Comment Spec In Lab Lewis Gee MD BLOOD BANK ORDERABLES Performing Organization Address City/[facility]/[place] [address] Antibody screen (12/01/2019 3:55 AM EDT) Patholo gist Method Time Signature Ab Screen Negative [facility] LABORATORY Expires at 12/04/2019 [facility] [id number] on: [facility] Specimen Anatomical Collection Method Collection Time Receive d Time (Source) Location / / Volume Laterality Blood specimen 12/01/2019 3:55 AM 020 4:15 (specimen) EDT AM EDT Resulting Agency Comment Spec In Lab Lewis Gee MD BLOOD BANK ORDERABLES Performing Organization Address City/State/[place] [address] ABO/Rh Typing (12/01/2019 3:55 AM EDT) athologist Signature ABORh Type AB Pos [facility] Specimen Anatomical Collection Method Collection Time Receive d Time (Source) Location / / Volume Laterality Blood specimen 12/01/2019 3:55 AM 020 4:15 (specimen) EDT AM EDT Resulting Agency Comment Spec In Lab Lewis Gee MD BLOOD BANK ORDERABLES Performing Organization Address City/[facility] [place] [address] (ABNORMAL) Troponin (12/01/2019 3:55 AM EDT) athologist Signature Troponin-T 4.35 (H) 0.00 - [facility] 0.00 ng/mL [facility] Comment: result rechecked-slw The 99th percentile for Troponin T is le ss than 0.01 ng/mL, any detectable cTnT concentration using this assay should be considered elevated. According to the third universal definit ion of myocardial infarction the following criteria with a clinical prese ntation consistent with acute myocardial ischemia meets the diagnosis for a myocardial infarction (ID). Detection of a rise and/or fall of [...] additional sample may be indicated. Reference: Third [place] Definition of Myocardial Infarction. Journal of the [employer] College [employer] 2012;60:1581-98 Specimen Anatomical Collection Method Collection Time Receive d Time (Source) Location / / Volume Laterality Blood specimen 12/01/2019 3:55 AM 020 4:00 (specimen) EDT AM EDT Resulting Agency Comment Spec In Lab Gretchen Yoon MD CHEMISTRY ORDERABLES Performing Organization Address City/State/ZIP Code Phon e Number [address] Magnesium (12/01/2019 3:55 AM EDT) P athologist Signature Magnesium 0.96 0.69 - 1.07 [facility] mmol/L [facility] Specimen Anatomical Collection Method Collection Time Receive d Time (Source) Location / / Volume Laterality Blood specimen 12/01/2019 3:55 AM 020 4:00 (specimen) EDT AM EDT Resulting Agency Comment Spec In Lab Gretchen Yoon MD CHEMISTRY ORDERABLES Performing Organization Address City/[facility]/[place] [address] (ABNORMAL) BMP w/fasting Glucose (12/01/2019 3:55 AM EDT) P athologist Signature Glucose 148 (H) 65 - 99 [facility] Fasting mg/dL [facility] Comment: ?Fasting* Glucose Interpretive C [...] of Diabetes Mellitus, Position Statement from the [employer]. ??Diabete s Care, Volume 33, Supplement 1, Jul 2009 BUN 11 10 - 20 mg/dL [facility] Creatinine 0.96 0.80 - 1.50 mg/dL [facility] Sodium 132 (L) 135 - 145 mmol/L [facility] Potassium 4.0 3.5 - 5.0 mmol/L [facility] Comment: Please note: ??Patients with [...] Anion Gap 10 5 - 15 mmol/L [facility] Calcium 7.6 (L) 8.5 - 10.5 mg/dL [facility] Estimated GFR 78 >=60 mL/min/1.73 m?? [facility] Comment: The eGFR was calculated using the CKD-EP I equation. As with all creatinine based estimates of kidney function, eGFR values calculated with the CKD-EPI equation are not accurate in patients wi th acute kidney failure, extremes of body mass or the acutely ill. http://CodeNgo/[facility] LAWTONnkf eGFR 91 >=60 mL/min/1.73 m?? [facility] Comment: The eGFR was calculated using the CKD-EP I equation. As with all creatinine based estimates of kidney function, eGFR values calculated with the CKD-EPI equation are not accurate in patients wi th acute kidney failure, extremes of body mass or the acutely ill. http://CodeNgo/DHnkf Specimen Anatomical Collection Method Collection Time Receive d Time (Source) Location / / Volume Laterality Blood specimen 12/01/2019 3:55 AM 020 4:00 (specimen) EDT AM EDT Resulting Agency Comment Spec In Lab Gretchen Yoon MD CHEMISTRY ORDERABLES Performing Organization Address City/State/[place] [address] (ABNORMAL) Hemogram (12/01/2019 3:55 AM EDT) Analysis Performed At Patho [facility] Time Signature WBC 11.0 (H) 4.0 - 9.5 [facility] x10(3)/[facility] LABORATORY RBC 3.46 (L) 4.58 - [facility] 5.54 [facility] x10(6)/[facility] LABORATORY Hemoglobin 10.2 (L) 13.7 - [facility] 16.5 gm/dL [facility] Hematocrit 31.2 (L) 40.5 - [facility] 48.5 % [facility] MCV 90.2 82.9 - [facility] 93.1 [facility] LABORATORY MCH 29.5 27.5 - [facility] 32.1 pg [facility] MCHC 32.7 32.0 - [facility] 35.7 gm/dL [facility] Platelets 98 (L) 145 - 357 [facility] x10(3)/[facility] LABORATORY RDWSD 47.9 (H) 36.0 - [facility] 45.0 [facility] LABORATORY RDWCV 14.6 (H) 11.4 - [facility] 13.8 % [facility]ORY MPV 12.3 7.6 - 12.9 [facility] LABORATORY nRBC % Auto 0.0 % [facility] nRBC Abs Auto 0.000 0.000 - [facility] 0.000 [facility] x10(3)/[facility] LABORATORY Specimen Anatomical Collection Method Collection Time Receive d Time (Source) Location / / Volume Laterality Blood specimen 12/01/2019 3:55 AM 020 4:00 (specimen) EDT AM EDT Resulting Agency Comment Spec In Lab Gretchen Yoon MD HEMATOLOGY ORDERABLES Performing Organization Address City/State/[place] [address] (ABNORMAL) BLOOD GAS 2 ARTERIAL (11/30/2019 10:39 PM EDT) Analysis Performed At [facility] Time Signature pH Art 7.45 7.35 - [facility] 7.45 [facility] pCO2 Art 23 (L) 35 - 45 [facility] LABORATORY pO2 Art 76 (L) 85 - 104 [facility] LABORATORY HCO3 Art 15.3 (L) 20.0 - [facility] 26.0 [facility] mmol/[facility] LABORATORY BE Art -8.7 (L) -3.0 - 3.0 [facility] mmol/L [facility] Hgb Blood Gas 11.7 (L) 13.7 - [facility] 16.5 gm/dL [facility] O2HB Art 94.2 94.0 - [facility] 97.0 % [facility]ORY COHB Art 0.5 % [facility] Comment: Nonsmokers: 0.5-1.5% COHB Smokers: Variable, but usually less than 10% Toxic: 20-30% COHB Lethal: Greater than 60% COHB METHB Art 0.6 <=1.5 % [facility] Na Whole Blood 133 (L) 135 - 145 mmol/L [facility] K Whole Blood 3.8 3.5 [...] Whole Bld 120 65 - 199 mg/dL [facility] Comment: Diabetes: >=200 mg/dL plus symp toms. Lactate WB 0.8 0.5 - 2.2 mmol/L [facility] FIO2 Art 100 % [facility] PF Ratio Art 76 [facility] Specimen Anatomical Collection Method Collection Time Receive d Time (Source) Location / / Volume Laterality Blood specimen 11/30/2019 10:39 0 (specimen) PM EDT 10:39 PM EDT Gretchen Yoon MD CHEMISTRY ORDERABLES Performing Organization Address City/State/[place] [address] EKG 12 Lead (11/30/2019 [...] (Bezet) Calculated P 12 degrees [facility] [place] Calculated R 19 degrees [facility] [place] Calculated T -47 degrees [facility] [place] INTERPRETATION Sinus rhythm with Premature supraventricular complexes [...] Yoon MD ECG ORDERABLES Performing Organization Address City/[facility]/ZIP Code Phon e Number MUSE SYSTEM (ABNORMAL) Urinalysis Microscopic Exam (11/30/2019 8:40 PM EDT) P athologist Signature RBC UA 27 (H) 0 - 3 /HPF [facility] WBC UA 4 (H) 0 - 3 /HPF [facility] Hyaline Cast 3 (H) 0 - 2 /LPF [facility] LABORATORY Specimen (Source) Anatomical Collection Method Collection Time Re ceived Time Location / / Volume Laterality Urine specimen 11/30/2019 8:40 11/30/2019 obtained via PM EDT 10:51 PM EDT indwelling urinary catheter (specimen) Resulting Agency Comment Spec In Lab Rossy Winn MD URINE ORDERABLES Performing Organization Address City/[facility]/ZIP Code Phon e Number [place] [phone] HOSP[address] LAB[address]ORY Drive (ABNORMAL) Urinalysis with reflex Culture (11/30/2019 8:40 PM EDT) Patholo gist Method Time Signature Glucose UA Negative Negative [facility] mg/dL [facility] Protein UA Negative Negative [facility] mg/dL [facility] Bilirubin UA Negative Negative [facility] mg/dL [facility] Comment: Clinical correlation required for [...] LABORATORY Blood UA Moderate (A) Negative mg/dL [facility] Ketones UA 40 (A) Negative mg/dL [facility] Nitrite UA Negative Negative [facility] Leukocytes UA Trace (A) Negative [facility] LABORATORY Appearance UA Clear Clear [facility] Spec [place] UA 1.026 1.006 - 1.030 [facility] Color UA Yellow Yellow [facility] Culture Reflexed No [facility] Specimen (Source) Anatomical Collection Method Collection Time Re ceived Time Location / / Volume Laterality Urine specimen 11/30/2019 8:40 11/30/2019 obtained via PM EDT 10:51 PM EDT indwelling urinary catheter (specimen) Resulting Agency Comment Spec In Lab Gretchen Yoon MD URINE ORDERABLES Performing Organization Address City/State/[place] [address] (ABNORMAL) pro-Brain Natriuretic Peptide (11/30/2019 8:30 PM EDT) P athologist Signature ProBNP 2,802 (H) <=125 [facility] pg/mL [facility] Specimen Anatomical Collection Method Collection Time Receive d Time (Source) Location / / Volume Laterality Blood specimen Venous Draw / 11/30/2019 8:30 PM 2019 8:36 (specimen) Unknown EDT PM EDT Resulting Agency Comment Spec In Lab Rossy Winn MD CHEMISTRY ORDERABLES Performing Organization Address City/State/ZIP Code Phon e Number [place] [phone]OS[address] (ABNORMAL) Troponin (11/30/2019 8:30 PM EDT) athologist Signature Troponin-T 5.04 (H) 0.00 - [facility] MONAE 0.00 ng/mL [facility] Comment: The 99th percentile for Troponin T is le ss than 0.01 ng/mL, any detectable cTnT concentration using this assay should be considered elevated. According to the third universal definit ion of myocardial infarction the following criteria with a clinical prese ntation consistent with acute myocardial ischemia meets the diagnosis for a myocardial infarction (ID). Detection of a rise and/or fall of [...] additional sample may be indicated. Reference: Third [place] Definition of Myocardial Infarction. Journal of the [employer] College of Cardiology 2012;60:1581-98 Specimen Anatomical Collection Method Collection Time Receive d Time (Source) Location / / Volume Laterality Blood specimen Venous Draw / 11/30/2019 8:30 PM 2019 8:36 (specimen) Unknown EDT PM EDT Resulting Agency Comment Spec In Lab Rossy Winn MD CHEMISTRY ORDERABLES Performing Organization Address City/State/[place] [address] Magnesium (11/30/2019 8:30 PM EDT) athologist Signature Magnesium 0.79 0.69 - 1.07 [facility] mmol/L [facility] Specimen Anatomical Collection Method Collection Time Receive d Time (Source) Location / / Volume Laterality Blood specimen 11/30/2019 8:30 PM 020 8:35 (specimen) EDT PM EDT Resulting Agency Comment Spec In Lab Gretchen Yoon MD CHEMISTRY ORDERABLES Performing Organization Address City/State/[place] [address] (ABNORMAL) Basic Metabolic Panel (non-fasting) (11/30/2019 8:30 PM EDT) athologist Signature Glucose Lvl 132 65 - 199 [facility] mg/dL [facility] Comment: Diabetes: >=200 mg/dL plus symp toms BUN 12 10 - 20 mg/dL [facility] Creatinine 0.94 0.80 - 1.50 mg/dL [facility] Sodium 136 135 - 145 mmol/L [facility] Potassium 3.9 3.5 - 5.0 mmol/L [facility] Comment: Please note: ??Patients with [...] Anion Gap 11 5 - 15 mmol/L [facility] Calcium 7.9 (L) 8.5 - 10.5 mg/dL [facility] Estimated GFR 80 >=60 mL/min/1.73 m?? [facility] Comment: The eGFR was calculated using the CKD-EP I equation. As with all creatinine based estimates of kidney function, eGFR values calculated with the CKD-EPI equation are not accurate in patients wi th acute kidney failure, extremes of body mass or the acutely ill. http://CodeNgo/DHnkf eGFR 93 >=60 mL/min/1.73 m?? [facility] Comment: The eGFR was calculated using the CKD-EP I equation. As with all creatinine based estimates of kidney function, eGFR values calculated with the CKD-EPI equation are not accurate in patients wi th acute kidney failure, extremes of body mass or the acutely ill. http://CodeNgo/DHnkf Specimen Anatomical Collection Method Collection Time Receive d Time (Source) Location / / Volume Laterality Blood specimen 11/30/2019 8:30 PM 020 8:35 (specimen) EDT PM EDT Resulting Agency Comment Spec In Lab Gretchen Yoon MD CHEMISTRY ORDERABLES Performing Organization Address [facility] Phon e Number [address] Blood culture (11/30/2019 8:30 PM EDT) Patholo gist Method Time Signature Blood Culture No growth [facility] MON[facility] at 5 days. [facility] Specimen Anatomical Collection Method Collection Time Receive d Time (Source) Location / / Volume Laterality Blood specimen 11/30/2019 8:30 PM 020 9:40 (specimen) EDT PM EDT Comment: L HAND Resulting Agency Comment Spec In Lab Gretchen Yoon MD MICROBIOLOGY - BLOOD ORDERAB LES Performing Organization Address City/[facility] [place] [address] Blood culture (11/30/2019 8:30 PM EDT) Patholo gist Method Time Signature Blood Culture No growth MELINA MONAE at 5 days. [facility] Specimen Anatomical Collection Method Collection Time Receive d Time (Source) Location / / Volume Laterality Blood specimen 11/30/2019 8:30 PM 020 9:40 (specimen) EDT PM EDT Comment: R HAND Resulting Agency Comment Spec In Lab Gretchen Yoon MD MICROBIOLOGY - BLOOD ORDERAB LES Performing Organization Address [facility] Phon e Number [address] XR Chest One View [...] below. ? Electronically signed by: ALBA Watson [facility] ([phone]), at 11/30/2019 8:32 PM Narrative 11/30/2019 8:32 [...] Time Signature pH Art 7.45 7.35 - [facility] 7.45 [facility]OR[facility]ORY pCO2 Art 27 (L) 35 - 45 [facility] mmHg [facility] LABOR[facility]ORY pO2 Art 68 (L) 85 - 104 [facility] LABORATORY HCO3 Art 18.2 (L) 20.0 - [facility] 26.0 [facility] mmol/[facility] LABORATORY BE Art -5.9 (L) -3.0 - 3.0 [facility] mmol/L [facility] Hgb Blood Gas 12.4 (L) 13.7 - [facility] 16.5 gm/dL [facility] O2HB Art 93.1 (L) 94.0 - [facility] 97.0 % [facility]ORY COHB Art 0.8 % [facility] Comment: Nonsmokers: 0.5-1.5% COHB Smokers: Variable, but usually less than 10% Toxic: 20-30% COHB Lethal: Greater than 60% COHB METHB Art 0.4 <=1.5 % [facility] Na Whole Blood 133 (L) 135 - 145 mmol/L [facility] K Whole Blood 3.6 3.5 [...] Whole Bld 121 65 - 199 mg/dL [facility] [facility] Comment: Diabetes: >=200 mg/dL plus symp toms. Lactate WB 1.2 0.5 - 2.2 mmol/L [facility] Flow Art 5.0 LPM [facility] Specimen Anatomical Collection Method Collection Time Receive d Time (Source) Location / / Volume Laterality Blood specimen 11/30/2019 8:09 PM 020 8:09 (specimen) EDT PM EDT Gretchen Yoon MD CHEMISTRY ORDERABLES Performing Organization Address City/State/ZIP Code Phon e Number [place] [phone]OSP[address] LAB[address]ORY [address] CT Angiogram [place] (11/30/2019 4:36 PM EDT) Anatomical [...] by: Angel Luis Barboza MD, [facility] ([phone]), at 11/30/2019 5:04 PM Gretchen Yoon MD [...] 453 ms MUSE SYSTEM (Bezet) Calculated P [place] 52 degrees MUSE SYSTEM Calculated R Green[place] 5 degrees MUSE SYSTEM Calculated T [place] -60 degrees MUSE SYSTEM INTERPRETATION Sinus rhythm [...] Corcoran ? (Age): 1945(74y) Med Rec#: ? [id number] ?Sex: ?M ? Site Loc: ? [facility] ?Ht / Wt: ??178(cm)/64(kg) Pt. Loc: ?CCU ? BSA: ?1.8 Study Date: ?? 11/30/2019 ?Pt. Type: Inpatient Tape: ? Referring: GILMER Reading: Tello Mejia ([id number]) Fertilizer Mixer: Friend, Lolita Diagnosis: *ST elevation (STEMI) myocardial [...] Vmax ?0.58 ? m/sec ? MV deceleration rwup744.05 ? m sec ? MV A-wave Vmax [...] ? Mid-Inferior ?Akinetic ? Mid-Inferoseptal ?Normal ? Lejunior-Septal ? Normal ? Lejunior-Anterior ? Normal ? Lejunior-Lateral ?Normal ? Lejunior-Inferior ? Hypokinetic ? Lejunior-Tip ?Normal ? This report has been electronically sign ed by: _ Tello Mejia MD ? 11/30/2019 12: 45:27 [facility] Procedure Note Tello Mejia MD - 11/30/2019Formatti ng of this note might be different from the original. Procedure: Transthoracic Echocardiogram Patient: RITA ACOSTA(Age): [birth year](74y) Med Rec#: [id number] Sex: M Site Loc: [facility] Ht / Wt: 178(cm)/64(kg) Pt. Loc: [facility] BSA: 1.8 Study Date: 11/30/2019 Pt. Type: Inpatie nt Tape: Referring: DONAYMICMUNIRAJ Reading: Tello Mejia ([id number]) Fertilizer Mixer: Lolita Prado Diagnosis: *ST elevation (STEMI) myocardial [...] MV E-wave Vmax 0.58 m/sec MV deceleration moyv360.05 msec MV A-wave Vmax 0.74 m/sec MV [...] Hypokinetic Mid-Posterolateral Hypokinetic Mid-Inferior Akinetic Mid-Inferoseptal Normal Lejunior-Septal Normal Lejunior-Anterior Normal Lejunior-Lateral Normal Lejunior-Inferior Hypokinetic Lejunior-Tip Normal This report has been electronically sign ed by: _ Tello Mejia MD 11/30/2019 12:45:27 Images reviewed and interpretation rafaela devin [facility] Cardiac Ultrasound Laboratory Gretchen Yoon [...] by: Angel Luis Barboza MD, [facility] ([phone]), at 11/30/2019 12:04 PM Narrative 11/30/2019 12:04 [...] Magnesium (11/30/2019 8:30 AM EDT) athologist [facility] Magnesium 0.88 0.69 - 1.07 [facility] mmol/L [facility] Specimen Anatomical Collection Method Collection Time Receive d Time (Source) Location / / Volume Laterality Blood specimen Venous Draw / 11/30/2019 8:30 AM 2019 8:37 (specimen) Unknown EDT AM EDT Resulting Agency Comment Spec In Lab Rossy Winn MD CHEMISTRY ORDERABLES Performing Organization Address City/[facility]/[place] [address] (ABNORMAL) CK (11/30/2019 8:30 AM EDT) athologist [facility] CK, Total 1,645 (H) 0 - 200 [facility] unit/L [facility] Specimen Anatomical Collection Method Collection Time Receive d Time (Source) Location / / Volume Laterality Blood specimen 11/30/2019 8:30 AM 020 8:32 (specimen) EDT AM EDT Resulting Agency Comment Spec In Lab Gretchen Yoon MD CHEMISTRY ORDERABLES Performing Organization Address City/[facility] [place] [address] (ABNORMAL) Troponin (11/30/2019 8:30 AM EDT) athologist [facility] Troponin-T 8.04 (H) 0.00 - M[place] DOV 0.00 ng/mL [facility] Comment: result rechecked-rancho The 99th percentile for Troponin T is le ss than 0.01 ng/mL, any detectable cTnT concentration using this assay should be considered elevated. According to the third universal definit ion of myocardial infarction the following criteria with a clinical prese ntation consistent with acute myocardial ischemia meets the diagnosis for a myocardial infarction (ID). Detection of a rise and/or fall of [...] additional sample may be indicated. Reference: Third [place] Definition of Myocardial Infarction. Journal of the French College of Cardiology 2012;60:1581-98 Specimen Anatomical Collection Method Collection Time Receive d Time (Source) Location / / Volume Laterality Blood specimen 11/30/2019 8:30 AM 020 8:32 (specimen) EDT AM EDT Resulting Agency Comment Spec In Lab Gretchen Yoon MD CHEMISTRY ORDERABLES Performing Organization Address City/State/ZIP Code Phon e Number [place] [phone] HOSPITAL LABORATORY Drive EKG 12 Lead (11/30/2019 7:57 AM EDT) Component Value Ref Range Test Analysis Performed Pathologis t Method Time At Signature Ventricular rate 64 BPM MUSE SYSTEM Atrial Rate 64 BPM MUSE SYSTEM P-R Interval 132 ms MUSE SYSTEM QRS Duration 78 ms MUSE SYSTEM Q-T Interval 420 ms MUSE SYSTEM QTC Calculated 433 ms MUSE SYSTEM (Bezet) Calculated P [place] 28 degrees MUSE SYSTEM Calculated R [place] 7 degrees MUSE SYSTEM Calculated T [place] -33 degrees MUSE SYSTEM INTERPRETATION Sinus rhythm [...] Signature Glucose 147 (H) 65 - 99 [facility] Fasting mg/dL [facility] Comment: ?Fasting* Glucose Interpretive C [...] of Diabetes Mellitus, Position Statement from the [place] Diabetes Association. ??Diabete s Care, Volume 33, Supplement 1, Jul 2009 BUN 13 10 - 20 mg/dL [facility] Creatinine 0.90 0.80 - 1.50 mg/dL [facility] Sodium 135 135 - 145 mmol/L [facility] Potassium 3.9 3.5 - 5.0 mmol/L [facility] Comment: Please note: ??Patients with [...] Anion Gap 11 5 - 15 mmol/L [facility] Calcium 7.5 (L) 8.5 - 10.5 mg/dL [facility] Estimated GFR 84 >=60 mL/min/1.73 m?? [facility] Comment: The eGFR was calculated using the CKD-EP I equation. As with all creatinine based estimates of kidney function, eGFR values calculated with the CKD-EPI equation are not accurate in patients wi th acute kidney failure, extremes of body mass or the acutely ill. http://CodeNgo/[facility]ONnkf eGFR 98 >=60 mL/min/1.73 m?? [facility] Comment: The eGFR was calculated using the CKD-EP I equation. As with all creatinine based estimates of kidney function, eGFR values calculated with the CKD-EPI equation are not accurate in patients wi th acute kidney failure, extremes of body mass or the acutely ill. http://CodeNgo/[facility]ONnkf Specimen Anatomical Collection Method Collection Time Receive d Time (Source) Location / / Volume Laterality Blood specimen 11/30/2019 2:15 AM 020 2:29 (specimen) EDT AM EDT Resulting Agency Comment Spec In Lab Gretchen Yoon MD CHEMISTRY ORDERABLES Performing Organization Address City/State/ZIP Code Phon e Number [place] [phone] HOSPITAL LABORATORY Drive (ABNORMAL) Hemogram (11/30/2019 2:15 AM EDT) Analysis Performed At Patho logist Time Signature WBC 11.2 (H) 4.0 - 9.5 [facility] x10(3)/[facility] LABORATORY RBC 3.83 (L) 4.58 - [facility] 5.54 [facility] x10(6)/[facility] LABORATORY Hemoglobin 11.4 (L) 13.7 - [facility] 16.5 gm/dL [facility] Hematocrit 35.2 (L) 40.5 - [facility] 48.5 % [facility] MCV 91.9 82.9 - [facility] 93.1 fL [facility] MCH 29.8 27.5 - [facility] 32.1 pg [facility] MCHC 32.4 32.0 - [place] MONAE 35.7 gm/dL [facility] Platelets 122 (L) 145 - 357 [place] MARSHDOV x10(3)/[facility] LABORATORY RDWSD 49.8 (H) 36.0 - [place] MONAE 45.0 [facility] LABORATORY RDWCV 14.8 (H) 11.4 - [place] 13.8 % [facility] MPV 12.1 7.6 - 12.9 [place] MONAE [facility] LABORATORY nRBC % Auto 0.0 % [facility] nRBC Abs Auto 0.000 0.000 - [place] MARSHDOV 0.000 [facility] x10(3)/[facility] LABORATORY Specimen Anatomical Collection Method Collection Time Receive d Time (Source) Location / / Volume Laterality Blood specimen 11/30/2019 2:15 AM 020 2:29 (specimen) EDT AM EDT Resulting Agency Comment Spec In Lab Gretchen Yoon MD HEMATOLOGY ORDERABLES Performing Organization Address City/State/[place] [address] (ABNORMAL) CK (11/30/2019 2:15 AM EDT) athologist [facility] CK, Total 1,969 (H) 0 - 200 [facility] DOV unit/L [facility] Specimen Anatomical Collection Method Collection Time Receive d Time (Source) Location / / Volume Laterality Blood specimen 11/30/2019 2:15 AM 020 2:29 (specimen) EDT AM EDT Resulting Agency Comment Spec In Lab Gretchen Yoon MD CHEMISTRY ORDERABLES Performing Organization Address City/State/[place] [address] (ABNORMAL) Troponin (11/30/2019 2:15 AM EDT) athologist [facility] Troponin-T 11.73 (H) 0.00 - [place] MONAE 0.00 ng/mL [facility] Comment: result rechecked-slw The 99th percentile for Troponin T is le ss than 0.01 ng/mL, any detectable cTnT concentration using this assay should be considered elevated. According to the third universal definit ion of myocardial infarction the following criteria with a clinical prese ntation consistent with acute myocardial ischemia meets the diagnosis for a myocardial infarction (ID). Detection of a rise and/or fall of [...] additional sample may be indicated. Reference: Third [place] Definition of Myocardial Infarction. Journal of the [place] College of Cardiology 2012;60:1581-98 result rechecked- The 99th percentile for Troponin T is le ss than 0.01 ng/mL, any detectable cTnT concentration using this assay should be considered elevated. According to the third universal definit ion of myocardial infarction the following criteria with a clinical prese ntation consistent with acute myocardial ischemia meets the diagnosis for a myocardial infarction (ID). Detection of a rise and/or fall of [...] additional sample may be indicated. Reference: Third [place] Definition of Myocardial Infarction. Journal of the [place] College of Cardiology 2012;60:1581-98 Corrected from 11.73 ng/ml [HI] on 11/29 3:11:51 EDT by Debi Hawley Specimen Anatomical Collection Method Collection Time Receive d Time (Source) Location / / Volume Laterality Blood specimen 11/30/2019 2:15 AM 020 2:29 (specimen) EDT AM EDT Resulting Agency Comment Spec In Lab Gretchen Yoon MD CHEMISTRY ORDERABLES Performing Organization Address City/[facility]/ZIP Code Phon e Number [address] LDL Cholesterol, Direct (11/30/2019 2:15 AM EDT) P athologist Signature LDL Chol 156 mg/dL [facility] Comment: Lowest Risk: <100 mg/dL Lower Risk: 100-129 mg/dL Borderline High Risk: 130-159 mg/dL High Risk: 160-189 mg/dL Very High Risk: >hy=628 mg/dL Specimen Anatomical Collection Method Collection Time Receive d Time (Source) Location / / Volume Laterality Blood specimen 11/30/2019 2:15 AM 020 2:29 (specimen) EDT AM EDT Resulting Agency Comment Spec In Lab Gretchen Yoon MD CHEMISTRY ORDERABLES Performing Organization Address City/[facility]/ZIP Code Phon e Number [address] (ABNORMAL) Hemoglobin A1c (11/30/2019 [...] Mellitus, Diabetes Care 2013; 36: Suppl. 1, W56-89 Est Avg Gluc See note mg/dL [facility] Comment: Estimated Average Glucose [...] with hemoglobinopathies. Additional resources are available on [facility] ADA website. Kiko CARBAJAL, Jenn J, Silas R, et al. ??Tr anslating the A1C assay into estimated average glucose values. ??Diabetes Care 2008:31(8):9398-6833. Specimen Anatomical Collection Method Collection Time Receive d Time (Source) Location / / Volume Laterality Blood specimen 11/30/2019 2:15 AM 020 2:29 (specimen) EDT AM EDT Resulting Agency Comment Spec In Lab Gretchen Yoon MD CHEMISTRY ORDERABLES Performing Organization Address City/State/[place] [address] Lipid Panel (Reflex Direct LDL) (11/30/2019 2:15 AM EDT) athologist Signature Chol, Total 195 mg/dL [facility] Comment: Lower Risk: <200 mg/dL Average Risk: 200-239 mg/dL Higher Risk: >qz=563 mg/dL Triglycerides 93 mg/dL [facility] Comment: Average Risk/Lower Risk: <150 mg/dL Borderline High Risk: 150-199 mg/dL High Risk: 200-499 mg/dL Very High Risk: >mh=275 mg/dL HDL 32 mg/dL [facility] Comment: Males: ?? Higher Risk: <40 mg/dL Females: ?? HIgher Risk: <50 mg/dL LDL Cholesterol 144 mg/dL [facility] Comment: Lowest Risk: <100 mg/dL Lower Risk: 100-129 mg/dL Borderline High Risk: 130-159 mg/dL High Risk: 160-189 mg/dL Very High Risk: >ik=264 mg/dL Chol/HDL Ratio 6.1 ratio [facility] Lipid Interpretation See Note [facility] Comment: Lipid management should be guided by a p atient? s ASCVD risk, goals and preferences. ACC/AHA Guidelines recommend high intens ity statin if clinical ASCVD or LDL greater than or equal to 190 mg/dL. http://CodeNgo/VWP-GQG-Njjkgqtxg Adults aged 40-75 with LDL 70-189 mg/dL should have their 10 year ASCVD risk estimated with the ACC/AHA ASCVD risk es timator http://tools.acc.org/OJLHB-Oewe-Qhfgciva r/ Statin should be discussed if risk [...] City/State/[place] [address] (ABNORMAL) CK (11/29/2019 6:35 PM EDT) athologist Signature CK, Total 2,780 (H) 0 - 200 [facility] unit/L [facility]ORY Specimen Anatomical Collection Method Collection Time Receive d Time (Source) Location / / Volume Laterality Blood specimen 11/29/2019 6:35 PM 020 6:53 (specimen) EDT PM EDT Resulting Agency Comment Spec In Lab Gretchen Yoon MD CHEMISTRY ORDERABLES Performing Organization Address City/State/[place] [address] (ABNORMAL) Troponin (11/29/2019 6:35 PM EDT) athologist Signature Troponin-T 17.60 (H) 0.00 - [facility] 0.00 ng/mL [facility] Comment: result rechecked-az The 99th percentile for Troponin T is le ss than 0.01 ng/mL, any detectable cTnT concentration using this assay should be considered elevated. According to the third universal definit ion of myocardial infarction the following criteria with a clinical prese ntation consistent with acute myocardial ischemia meets the diagnosis for a myocardial infarction (ID). Detection of a rise and/or fall of [...] additional sample may be indicated. Reference: Third [place] Definition of Myocardial Infarction. Journal of the [place] College of Cardiology 2012;60:1581-98 Specimen Anatomical Collection Method Collection Time Receive d Time (Source) Location / / Volume Laterality Blood specimen 11/29/2019 6:35 PM 020 6:53 (specimen) EDT PM EDT Resulting Agency Comment Spec In Lab Gretchen Yoon MD CHEMISTRY ORDERABLES Performing Organization Address City/State/ZIP Code Phon e Number [place] [phone] HOSPITAL LABORATORY Drive EKG 12 Lead (11/29/2019 3:58 PM EDT) [facility] gist Method Time Signature Ventricular rate 73 BPM MUSE SYSTEM Atrial Rate 73 BPM MUSE SYSTEM P-R Interval 152 ms MUSE SYSTEM QRS Duration 84 ms MUSE SYSTEM Q-T Interval 404 ms MUSE SYSTEM QTC Calculated 445 ms MUSE SYSTEM (Bezet) Calculated P [place] 50 degrees MUSE SYSTEM Calculated R [place] -4 degrees MUSE SYSTEM Calculated T [place] 19 degrees MUSE SYSTEM INTERPRETATION Sinus rhythm [...] below. ? Electronically signed by: Devin Solis [facility] ([phone]), at 11/29/2019 5:06 PM --------ORIGINAL REPORT -------- EXAMINATION: XR CHEST ONE VIEW CLINICAL HISTORY: stemi (as entered by o [facility] provider in the order requisition) TECHNIQUE: Portable [...] lung apex is excluded from the imaged [id number]. IMPRESSION: 1. ??New right internal jugular pulmonar [...] below. ? Electronically signed by: Devin Solis [facility] ([phone]), at 11/29/2019 4:36 PM Impressions 11/29/2019 4:36 [...] below. ? Electronically signed by: Devin Solis [facility] ([phone]), at 11/29/2019 4:36 PM Narrative 11/29/2019 4:36 [...] lung apex is excluded from the imaged [id number]. Procedure Note Estefani Harris MD - 11/29/2019Formattin [...] lung apex is excluded from the imaged [id number]. IMPRESSION 1. New right internal jugular pulmonary [...] Neutr Abs (ANC) 12.12 (H) 1.70 - [facility] 6.10 [facility] x10(3)/[facility] LABORATORY Lymphocytes % 9.1 % [facility] Lymphocytes Abs 1.3 0.9 - 3.2 [facility] x10(3)/[facility] LABORATORY Monocytes % 6.2 % [facility] Monocyte Abs 0.9 0.3 - 0.9 [facility] x10(3)/[facility] LABORATORY Eosinophils % 0.0 % [facility] Eosinophils Abs 0.0 0.0 - 0.4 [facility] x10(3)/[facility] LABORATORY Basophils % 0.3 % [facility] Basophils Abs 0.0 0.0 - 0.1 [facility] x10(3)/[facility] LABORATORY Immature Gran % 0.60 % [facility] [...] Gran Abs 0.08 (H) 0.00 - 0.04 x10(3)/[facility] LABORATORY Specimen Anatomical Collection Method Collection Time Receive d Time (Source) Location / / Volume Laterality Blood specimen 11/29/2019 2:32 PM 020 2:55 (specimen) EDT PM EDT Resulting Agency Comment Spec In Lab Darrell Glasgow MD HEMATOLOGY ORDERABLES Performing Organization Address City/State/[place] [address] (ABNORMAL) Hemogram (11/29/2019 2:32 PM EDT) Analysis Performed At Patho logist Time Signature WBC 14.5 (H) 4.0 - 9.5 [facility] x10(3)/[facility] LABORATORY RBC 4.53 (L) 4.58 - [facility] 5.54 [facility] x10(6)/[facility] LABORATORY Hemoglobin 13.1 (L) 13.7 - [facility] 16.5 gm/dL [facility] Hematocrit 40.8 40.5 - [facility] 48.5 % [facility] MCV 90.1 82.9 - [facility] 93.1 [facility] LABORATORY MCH 28.9 27.5 - [facility] 32.1 pg [facility] LAB[facility]ORY MCHC 32.1 32.0 - [facility] 35.7 gm/dL [facility] LAB[facility]ATORY Platelets 184 145 - 357 [facility] x10(3)/[facility] LABORATORY RDWSD 47.8 (H) 36.0 - [facility] DOV 45.0 [facility] LABORATORY RDWCV 14.5 (H) 11.4 - [facility] DOV 13.8 % [facility] LABORATORY MPV 11.9 7.6 - 12.9 [facility] nRBC % Auto 0.0 % [facility] LABOR[facility] nRBC Abs Auto 0.000 0.000 - [facility] DOV 0.000 [facility] x10(3)/[facility] LABORATORY Specimen Anatomical Collection Method Collection Time Receive d Time (Source) Location / / Volume Laterality Blood specimen 11/29/2019 2:32 PM 020 2:55 (specimen) EDT PM EDT Resulting Agency Comment Spec In Lab Darrell Glasgow MD HEMATOLOGY ORDERABLES Performing Organization Address City/State/ZIP Code Phon e Number [address] (ABNORMAL) CK (11/29/2019 2:32 PM EDT) athologist Signature CK, Total 3,282 (H) 0 - 200 [facility] unit/L [facility] LABORATORY Specimen Anatomical Collection Method Collection Time Receive d Time (Source) Location / / Volume Laterality Blood specimen 11/29/2019 2:32 PM 020 2:32 (specimen) EDT PM EDT Resulting Agency Comment Spec In Lab Gretchen Yoon MD CHEMISTRY ORDERABLES Performing Organization Address City/[facility]/[place] [address] (ABNORMAL) Troponin (11/29/2019 2:32 PM EDT) athologist Signature Troponin-T 20.33 (H) 0.00 - [facility] 0.00 ng/mL [facility] LABOR[facility]ORY Comment: The 99th percentile for Troponin T is le ss than 0.01 ng/mL, any detectable cTnT concentration using this assay should be considered elevated. According to the third universal definit ion of myocardial infarction the following criteria with a clinical prese ntation consistent with acute myocardial ischemia meets the diagnosis for a myocardial infarction (ID). Detection of a rise and/or fall of [...] additional sample may be indicated. Reference: Third [place] Definition of Myocardial Infarction. Journal of the [place] College of Cardiology 2012;60:1581-98 Specimen Anatomical Collection Method Collection Time Receive d Time (Source) Location / / Volume Laterality Blood specimen 11/29/2019 2:32 PM 020 2:32 (specimen) EDT PM EDT Resulting Agency Comment Spec In Lab Gretchen Yoon MD CHEMISTRY ORDERABLES Performing Organization Address [facility] [place] [address] (ABNORMAL) APTT (11/29/2019 2:32 PM EDT) athologist Signature PTT 114 25 - 37 [facility] (Critical) [facility] LABORATORY Comment: Critical Result called by ?? [...] Yoon MD HEMATOLOGY ORDERABLES Performing Organization Address [facility] [place] [address] (ABNORMAL) Prothrombin Time (11/29/2019 2:32 PM EDT) P athologist Signature PT 13.5 (H) 9.4 - 12.5 [facility] LABORATORY INR 1.2 [facility] LABORATORY [...] Organization Address City/State/[place] [address] (ABNORMAL) Hepatic Function Panel (11/29/2019 2:32 PM EDT) athologist Signature Total Protein 6.3 6.1 - 8.0 [facility] gm/dL [facility]ORY Albumin 3.6 3.2 - 5.2 [facility] gm/dL [facility] LAB[facility]ORY AST 257 (H) 0 - 39 [facility]L [facility] LAB[facility]ORY ALT 50 0 - 55 [facility]L [facility] LAB[facility]ORY Alk Phos 84 40 - 130 [facility] unit/L [facility] LAB[facility]ATORY Total 0.3 0.2 - 1.3 [facility] Bilirubin mg/dL [facility] LABOR[facility]ORY Bili, Direct 0.1 0.0 - 0.3 [facility] DOV mg/dL [facility] Specimen Anatomical Collection Method Collection Time Receive d Time (Source) Location / / Volume Laterality Blood specimen 11/29/2019 2:32 PM 020 2:32 (specimen) EDT PM EDT Resulting Agency Comment Spec In Lab Gretchen Yoon MD CHEMISTRY ORDERABLES Performing Organization Address City/[facility]/[place] [address] (ABNORMAL) pro-Brain Natriuretic Peptide (11/29/2019 2:32 PM EDT) P athologist Signature ProBNP 272 (H) <=125 pg/mL [facility] Specimen Anatomical Collection Method Collection Time Receive d Time (Source) Location / / Volume Laterality Blood specimen 11/29/2019 2:32 PM 020 2:32 (specimen) EDT PM EDT Resulting Agency Comment Spec In Lab Gretchen Yoon MD CHEMISTRY ORDERABLES Performing Organization Address City/[facility]/[place] [address] Magnesium (11/29/2019 2:32 PM EDT) athologist Signature Magnesium 0.76 0.69 - 1.07 [facility] mmol/L [facility] Specimen Anatomical Collection Method Collection Time Receive d Time (Source) Location / / Volume Laterality Blood specimen 11/29/2019 2:32 PM 020 2:32 (specimen) EDT PM EDT Resulting Agency Comment Spec In Lab Gretchen Yoon MD CHEMISTRY ORDERABLES Performing Organization Address City/State/ZIP Code Phon e Number [address] (ABNORMAL) Basic Metabolic Panel (non-fasting) (11/29/2019 2:32 PM EDT) athologist Signature Glucose Lvl 149 65 - 199 [facility] mg/dL [facility] Comment: Diabetes: >=200 mg/dL plus symp toms BUN 16 10 - 20 mg/dL [facility] Creatinine 0.94 0.80 - 1.50 mg/dL [facility] Sodium 135 135 - 145 mmol/L [facility] Potassium 4.5 3.5 - 5.0 mmol/L [facility] Comment: Please note: ??Patients with [...] Anion Gap 15 5 - 15 mmol/L [facility] Calcium 8.0 (L) 8.5 - 10.5 mg/dL [facility] Estimated GFR 80 >=60 mL/min/1.73 m?? [facility] Comment: The eGFR was calculated using the CKD-EP I equation. As with all creatinine based estimates of kidney function, eGFR values calculated with the CKD-EPI equation are not accurate in patients wi th acute kidney failure, extremes of body mass or the acutely ill. http://CodeNgo/DHnkf eGFR 93 >=60 mL/min/1.73 m?? [facility] Comment: The eGFR was calculated using the CKD-EP I equation. As with all creatinine based estimates of kidney function, eGFR values calculated with the CKD-EPI equation are not accurate in patients wi th acute kidney failure, extremes of body mass or the acutely ill. http://CodeNgo/[facility]f Specimen Anatomical Collection Method Collection Time Receive d Time (Source) Location / / Volume Laterality Blood specimen 11/29/2019 2:32 PM 020 2:32 (specimen) EDT PM EDT Resulting Agency Comment Spec In Lab Gretchen Yoon MD CHEMISTRY ORDERABLES Performing Organization Address City/[facility] [place] [address] EKG 12 Lead (11/29/2019 11:38 AM EDT) [facility] gist Method Time Signature Ventricular rate 60 BPM MUSE SYSTEM Atrial Rate 60 BPM MUSE SYSTEM P-R Interval 140 ms MUSE SYSTEM QRS Duration 86 ms MUSE SYSTEM Q-T Interval 474 ms MUSE SYSTEM QTC Calculated 474 ms MUSE SYSTEM (Bezet) Calculated P Green[place] 48 degrees MUSE SYSTEM Calculated R [place] 14 degrees MUSE SYSTEM Calculated T [place] 58 degrees MUSE SYSTEM INTERPRETATION Normal sinus [...] Yoon MD ECG ORDERABLES Performing Organization Address City/[facility]/ZIP [facility] Phon e Number MUSE SYSTEM CARDIAC CATHETERIZATION (11/29/2019 11:15 AM EDT) Anatomical Region Laterality Modality Other Specimen (Source) Anatomical Location Collection Method / Collectio n Time Received Time / Laterality Volume Narrative 11/30/2019 1:09 PM EDT ?[facility] ? Cardiac Cathete rization/Intervention Report ? Patient Name: Salinas, Angel Luis H. ? Procedure Date: 11/29/2019 ? A #: [id number] ? Primary Physician: Young, Gretchen N ? Case #: [id number] ? File Name: [id number] ? Catheterization Order Number: [id number] ? [facility] ?[facility] ? Final Report [place], [place] ? Patient Name: ? Angel Luis Salinas ? ID#: ?[id number] ? : ?1945 ? Procedure Date: ? [...] was Emergent. The indication for ?the labor arbitrator visit is ACS less than or equal [...] administered prior to arrival in the labor arbitrator. ?Recommended anti-platelet/anti- thrombotic regimen: ?Continue aspirin 81 mg daily fo r indefinitely. ?Continue clopidogrel 75 mg marco a y for 12 months then stop. ?These recommendations are made at the time of the intervention. Patient ?and provider preferences or a c hanging clinical situation may require ?modification of this regimen. C marvult [facility] Interventional Cardiology for ?questions. ? Conclusions: ?* [...] note might be different from the original. [facility] Cardiac Catheterization/Intervention Re port Patient Name: Angel Luis Salinas Procedure Date: 11/29/2019 A #: [id number] Primary Physician: Gretchen Yoon Case #: [id number] File Name: [id number] Catheterization Order Number: [id number] [facility] Final Report [place], [place] Patient Name: Angel Luis Salinas ID#: [id number] : 1945 Procedure Date: November 29, [...] was designated as ASA Class IV. The [facility] clinical frailty scale is 4: Vulnerable. Diagnostic Tests: Electrocardiography: EKG was assessed by ECG. EKG was Abnorm al. EKG showed ST Deviation >= 0.5 mm. Medications Prior to Procedure: Aspirin. Indications for Diagnostic Cath: The priority of the diagnostic procedur e was Emergent. The indication for the labor arbitrator visit is ACS less than or equal [...] priority for the procedure was Emergent. The [facility] indication for the procedure was S [...] this intervention was 10%. The final TI ID flow was 2. Distal 90% Thrombectomy and [...] A premounted 3.00 x 38 mm Resolute MENDZE (MACARIO) was deployed with a maximum inflation [...] this intervention was 10%. The final TI ID flow was 2. Vascular Access: Vascular Access [...] prior t o arrival in the labor arbitrator. Recommended anti-platelet/anti-thrombot ic regimen: Continue aspirin 81 mg daily for indefi nitely. Continue clopidogrel 75 mg daily for 12 months then stop. These recommendations are made at the t loyda of the intervention. Patient and provider preferences or a changing clinical situation may require modification of this regimen. Consult [facility] Interventional Cardiology for questions. Conclusions: * Two [...] Signature POC pH 7.33 (L) 7.35 - [facility] 7.45 [facility] POC PCO2 33 (L) 35 - 45 [facility] mmHg [facility] POC PO2 56 (L) 85 - 104 [facility] LABORATORY POC Base Excess -8.0 (L) -3.0 - 3.0 [facility] K mmol/L [facility] POC HCO3 17.4 (L) 20.0 - [facility] 26.0 [facility] mmol/[facility] LABORATORY POC Sodium 137 135 - 145 [facility] mmol/L [facility] POC Potassium 3.6 3.5 - 5.0 [facility] mmol/L [facility] POC Ionized Ca 1.15 1.15 - [facility] 1.33 [facility] P[facility] Hematocrit 37.0 (L) 40.0 - [facility] 51.0 % [facility] POC Calc Hgb 12.6 (L) 13.7 - [facility] 17.5 gm/dL [facility] Comment: The calculation of hemoglobin f rom hematocrit assumes a normal MCHC. POC Bgas Loc CC LAB [facility] LABOR[facility] Specimen Anatomical Collection Method Collection Time Receive d Time (Source) Location / / Volume Laterality Blood specimen 11/29/2019 9:17 AM 020 7:35 (specimen) EDT AM EDT Gretchen Yoon MD CHEMISTRY ORDERABLES Performing Organization Address City/State/[place] [address] EKG 12 Lead (11/29/2019 9:01 AM EDT) Component Value Ref Range Test Analysis Performed Pathologis t Method Time At Signature Ventricular rate 80 BPM MUSE SYSTEM Atrial Rate 79 BPM MUSE SYSTEM QRS Duration 94 ms MUSE SYSTEM Q-T Interval 436 ms MUSE SYSTEM QTC Calculated 502 ms MUSE SYSTEM (Bezet) Calculated R Greenwood 54 degrees MUSE SYSTEM Calculated T [place] 80 degrees MUSE SYSTEM INTERPRETATION Normal sinus rhythm MUSE SYSTEM Inferior infarct , possibly acute Prolonged QT * ACUTE ID ?? Consider right ventricular involvement in acute [...] 150 mg, Intravenous, ONCE, 1 dose, On Manley 12/07/19 at 1315, Warning Vesicant/Irritant Medication , [...] CONTINUOUS, Starting on 11/29/19 at 1930, Until Manley 11/30/19 at 0029, Please stop drip once [...] Intravenous, ONCE PRN, 1 dose, Starting on Manley 11/30/19 at 1636, Until Manley 11/30/19 at 1636, Per Protocol, Warning Vesicant/Irritant [...] mL/hr 250 mL/hr, Intravenous, CONTINUOUS, Starting on Manley 12/07/19 at 0145, Until Manley 12/07/19 at 0239 levoFLOXacin (LEVAQUIN) 750 mg in New Bag 11/30/2019 11:03 PM EDT 750 mg 100 mL/hr dextrose 5% 150 mL 750 mg, Intravenous, at 100 mL/hr, EVERY 24 HOURS, First dose on Manley 11/30/19 at 2300, Until Discontinued, Routine, Indication [...] RN) 150 mg, Intravenous, ONCE, 1 dose, Manley at 1315, Warning Vesicant/Irritant Medication , Routine [...] ONCE, 1 dose, 12/06/19 at 0515, Ad dirt shoveler over 120 Minutes magnesium sulfate 2 g [...] Not Removed (add comment) - Provider: Amaya Anedrson RN - Comment: not present upon assessment) [...] (dose and location) verified - Provider: Mukesh Bentlye RN) 0900 (Patch (dose and location) verified [...] Oral, EVERY 4 HOURS PRN, Startin g Manley 11/30/19 at 2016, Until Sun12/08/19 at 1811, hypokalemia
Administer for serum potassium (mMol/L) of 3.9 - 4 See instructions for Potassium Protocol in online policies.
Routine Or potassium chloride ER (K-Dur/Klor-Con) tablet 40 mEqJump to med 40 mEq, Oral, EVERY 4 HOURS PRN, Startin g Manley 11/30/19 at 2016, Until Sun12/08/19 at 1811, hypokalemia
Administer for serum potassium (mMol/L) of 3.6 - 3.8 See instructions for Potassium Protocol in online policies.
Routine documented in this encounter Care Teams Cloth Stretcher Relationship Specialty Start Date End Date France Lam MD PCP - General 05/02/13 02/04/20 [address] [place] [address] documented as of this encounter
--- OUTSIDE RECORDS SUMMARY | 2022-04-27 11:07 | XMS_ITS | Encounter Summary ---
:1945 Author Organization [place] [address] Care Team Providers Name Role Phone France Lam MD Primary Care Provider Encounter Details Date Type Department Care Team Description 11/30/2019 Orders Only Cardiology [facility] [place] [address] Social History Tobacco Use Types Packs/Day [...] fajardo ? (Age): 1945(74y) Med Rec#: ? [id number] ?Sex: ?M ? Site Loc: ? Ht / Wt: ??(cm)/ (kg) ? Pt. Loc: ? Study Date: ?? 11/29/2019 ?Pt. Type: Tape: ? Referring: Faustino Garduno Reading: Dawit Mejia ([id number]) Forming Process Worker: [employer] Architect: Cedric Eric ([id number]) Interpreting Fellow: Cedric Eric ([id number]) Diagnosis: SUMMARY: 1. Limited bedside echocardiogram perfor med by admissions evaluator command post craftsman for hypotension following inferior STEMI . 2. [...] ? Mid-Inferior ?Akinetic ? Mid-Inferoseptal ?Hypokinetic ? [place]-Septal ? Normal ? [place]-Anterior ? Normal ? [place]-Lateral ?Normal ? [place]-Inferior ? Hypokinetic ? [place]-Tip ?Normal ? This report has been electronically sign ed by: _ Dawit Mejia MD ? 11/30/2019 12: 53:59 Images reviewed and interpretation rafaela ielokesh [facility] Cardiac Ultrasound Laboratory Procedure Note Dawit Mejia MD - 11/30/2019Formatti ng of this note might be different from the original. Procedure: Transthoracic Echocardiogram Patient: domenica ACOSTA(Age): 6(74y) Med Rec#: [id number] Sex: M Site Loc: Ht / Wt: (cm)/ (kg) Pt. Loc: Study Date: 11/29/2019 Pt. Type: Tape: Referring: Faustino Garduno Reading: Dawit Mejia ([id number]) Forming Process Worker: [employer] Architect: Cedric Eric ([id number]) Interpreting Fellow: Cedric Eric ([id number]) Diagnosis: SUMMARY: 1. Limited bedside echocardiogram perfor med by admissions evaluator command post craftsman for hypotension following inferior STEMI . 2. [...] Normal Mid-Posterolateral Akinetic Mid-Inferior Akinetic Mid-Inferoseptal Hypokinetic [place]-Septal Normal [place]-Anterior Normal [place]-Lateral Normal [place]-Inferior Hypokinetic [place]-Tip Normal This report has been electronically sign ed by: _ Dawit Mejia MD 11/30/2019 12:53:59 Images reviewed and interpretation verif ied [facility] Cardiac Ultrasound Laboratory Unknown ECHO ORDERABLES documented in this encounter Visit Diagnoses Not on filedocumented in this encounter Care Teams Lathe Puller Relationship Specialty Start Date End Date France Lam MD PCP - General 05/02/13 02/04/20 [address] [place] [address] documented as of this encounter
--- OUTSIDE RECORDS SUMMARY | 2022-04-27 11:08 | XMS_ITS | Encounter Summary ---
:1945 Author Organization [facility] [place] [address] Care Team Providers Name Role Phone France Lam MD Primary Care Provider Encounter Details Date Type Department Care Team Description 05/13/2013 Ancillary Vascular Surgery at [facility] (Primary Appointment [facility] Cesilia Sebastian, [place] Dx) [place] [id number] Social History Tobacco Use Types Packs/Day Years [...] Component Value Ref Test Analysis Performed At [facility] gist Range Method Time Signature VB Text VASCUBASE Report Department: Vascular Surgery Lab Patient: [id number] (ANGEL LUIS HI) CPT Code: 77193 ICD-9: 440.21 Referring Physician: FRANCE LAM Indication: [...] Posterior Tibial (Ankle) Art derrell ??84 ?0.64 ??Nuckolls- Biphasic ?? Interpretation: RIGHT: ??Mild lower extremity [...] limb documented in this encounter Care Teams Miter Grinder Operator Relationship Specialty Start Date End Date France Lam MD PCP - General 05/02/13 02/04/20 [address] [place] [address] documented as of this encounter
--- OUTSIDE RECORDS SUMMARY | 2022-04-27 11:08 | XMS_ITS | Encounter Summary ---
:1945 [place] [address] Care Team Providers Name Role Phone France Lam MD Primary Care Provider Encounter Details Date Type Department Care Team Description 11/29/2019 Telephone Cardiovascular [facility] Silvio piedra MD [facility] Devin cohn [place] [address] [place] [address] [phone] (Wo rk) Social History Tobacco Use Types [...] 50s EKG: Inferior STEMI Silvio Real MD [employer] Defense Gunner PGY-4 11/29/2019 documented in this encounter Plan of Treatment Not on filedocumented as of this encounter Visit Diagnoses Not on filedocumented in this encounter Care Teams Park Worker Supervisor Relationship Specialty Start Date End Date France Lam MD PCP - General 05/02/13 02/04/20 [address] [place] [address] documented as of this encounter
--- OUTSIDE RECORDS SUMMARY | 2022-04-27 11:08 | XMS_ITS | Encounter Summary ---
:1945 Author Organization [facility] [place] [address] Care Team Providers Name Role Phone France Lam MD Primary Care Provider Encounter Details Date Type Department Care Team Description 05/13/2013 Orders Only Vascular Surgery at [facility] (xi l[facility] document control coordinator disease) [facility] (Primary Dx) [place] [address] Social History Tobacco Use Types Packs/Day [...] unspecified documented in this encounter Care Teams Balancing Machine Set Up Worker Relationship Specialty Start Date End Date France Lam MD PCP - General 05/02/13 02/04/20 [address] [place] [address] documented as of this encounter
--- OUTSIDE RECORDS SUMMARY | 2022-04-27 11:08 | XMS_ITS | Encounter Summary ---
:1945 Author Organization [facility] Address [facility] [address] [place] [address] Care Team Providers Name Role Phone France Lam MD Primary Care Provider Reason for Visit Reason Comments Claudication Encounter Details Date Type Department Care Team Description 05/13/2013 Office Visit [place]ascular [place] [facility] MD Bobby peripheral vascular [facility] dis ease, left ([address]) [place], [place] VASCULAR SURGERY [address] [place] [address] [phone] Social History Tobacco Use Types Packs/Day Years [...] unspecified documented in this encounter Care Teams Purchasing Director Relationship Specialty Start Date End Date France Lam MD PCP - General 05/02/13 02/04/20 [address] [place] [address] documented as of this encounter
--- OUTSIDE RECORDS SUMMARY | 2022-04-27 11:08 | XMS_ITS | Encounter Summary ---
:1945 [place] [address] Care Team Providers Name Role Phone France Lam MD Primary Care Provider Reason for Visit Auth/Cert Specialty Diagnoses / Procedures Referred By Contact Refer red To Contact Diagnoses STEMI (ST elevation myocardial infarction) STEMI Procedures CARDIAC CATHETERIZATION Referral ID Status Reason Start Date Expiration Date Visits Requ ested Visits Authorized [id number] 1 1 Encounter Details Date Type Department Care Team Description 11/29/2019 Surgery Vertica Architect Gretchen Corral, CARDIAC CATHETERIZATION [facility] [place] [address] [place] [id number] [phone] (Wo rk) Social History Tobacco Use Types [...] Luis Salinas Patient Age: 74 y.o. Language: Anguillan Race: White Ethnicity: Not nor Admit date: [...] months on: antiplatelet therapy at discretion of motor vehicle license clerk - Repeat TTE in 3 months to reassess LV function - Repeat BMP in 1-2 weeks given recent start lisinopril - Referred to lipid clinic for consideration of PCSK-9 inhibitor given STEMI with intolerance of statins - Started on amiodarone this admission for recurrent rapid atrial flutter with rates ~170, recommendcontinued assessment of necessity of rhythm control strategy with motor vehicle license clerk - Amiodarone monitoring recommendations as below - [...] please contact your inpatient physician through the [facility] Account Services Representative . Issues after hours and on [...] and Compazine. He was transferred directly to [facility] via [facility] for further management. Patient had an emergent PCI with 3 MACARIO stents placed to his RCA, with mild disease of LCX (report pending) at [facility]. He was found to be persistently hypotensive requiring Levo up to 10mcg/min. [facility] after the cath [...] than 65 pack years. Family history of GA in father and two uncles. He's takingbaby [...] ip as described above. On arrival at [facility] he was taken for cardiac [...] priority for the procedure was Emergent. [facility] [...] below. Electronically signed by: Angel Luis Bar[facility] ([phone]), at 11/30/2019 5:[address] Angiogram [place] (Exam End: 11/30/2019 4:36 PM) [...] ??? Penicillins Pt doesn't remember reaction ??? Vffuvtf-Fkw-Kvu Reductase Inhibitors Stiff neck, upset stomach, back [...] medications at another hospital and then at [facility] you had a stent placed [...] FOR ONE MONTH AND THEN STOP. Your motor vehicle license clerk may tell you to start this medication again after one year. Clopidogrel (Plavix) 75 mg daily - This medication will help prevent clots from forming in your blood, which will help protect the stent that was placed in your heart vessel. TAKE THIS FOR ONE YEAR ANDTHEN DISCUSS WITH YOUR DUCTFIXING PLUMBER WHETHER TO STOP. Amiodarone 400mg twice daily [...] follow up: Your primary care provider and motor vehicle license clerk will manage your blood thinner (apixaban). You do not need lab monitoring of this medication. Diet: Please consume a healthy diet low in cholesterol Follow up Appointments: 12/10/2019 at 3:10PM with PCP Angel Luis Lott Future Appointments Date Time Provider Department Center 12/23/2019 1:30 PM Alfreda Salas APRN [facility] [id number] 12/26/2019 9:40 AM Merlin Sanchez MD [facility] CARD 4A [facility] 12/30/2019 3:40 PM Gretchen Yoon MD [address] Future Appointments and Orders Future Appointments and Orders Future Appointments Provider Department Dept Phone 12/23/2019 1:30 PM Alfreda Salas APRN Neurosurgery at [facility] Arrive at: Home [phone] Please do not come in for this visit. Your provider will call you at the number you provided. 12/26/2019 9:40 AM Merlin Sanchez MD Cardiology at [facility] Arrive at: Home [phone] Please do not come in for this visit. Your provider will call you at the number you provided. 12/30/2019 3:40 PM Gretchen Yoon MD Cardiology at [facility] Arrive at: Home [phone] Please do not come in for this visit. Your provider will call you at the number you provided. Future Orders Complete By Expires Referral to Cardiac Rehab [[id number] Custom] As directed Process Instructions: If no progress note charted, please enter Clinical details in comments. Scheduling Instructions: Questions: My question or request is: STEMI. Cardiac rehab at [facility] Referral to [facility] [REF43 Custom] As directed Process Instructions: If no progress note charted, please enter Clinical details in comments. Scheduling Instructions: Questions: My question or request is: patient with inferior stemi with history of statin allergy (rash) - please evaluate for psck9 inhibitor. Referral to Home Health - at DISCHARGE [[id number] CPT(R)] As directed Process Instructions: Scheduling Instructions: Comments: DOCUMENTATION FOR VNA SERVICES PATIENT'S LOCATION: Angel Luis Corcoran [address] [address] (home) Accreditation Coordinator's Name: Self In discussion with the attending physician, it is certified that this patient is under his/her care and that MD, or an RN RESOURCE NURSE, CASH CLERK, or PA who is working directly with him/her, had a iyav-ar-mbzq encounter that meets the physician rnhd-fb-jzuo encounter requirements with this patient on 12/07/2019. [...] HEALTH CARE AGENCY: [facility], PHONE: [phone] FAX: [phone] Start of care: 24-48 hours after hospital [...] MD [address] / [place] [address] All A agencies which cover the area [...] info: PCP Your PCP: France Lam MD [phone] For questions regarding this document or issues relating to this hospitalization on the Cardiology Service, please contact your inpatient physician through the [facility] Account Services Representative . Issues after hours and on weekends will be handled by the Stone Splitter on-call. Patient Instructions: Neurology Your Diagnosis: Left [...] follow-up appointment in the neurology clinic at [facility]. See below for the appointment time. [...] 1:30 PM Alfreda Salas APRN Neurosurgery at [facility] Arrive at: Home [phone] Please do not come in for this visit. Your provider will call you at the number you provided. 12/26/2019 9:40 AM Merlin Sanchez MD Cardiology at [facility] Arrive at: Home [phone] Please do not come in for this visit. Your provider will call you at the number you provided. 12/30/2019 3:40 PM Gretchen Yoon MD Cardiology at [facility] Arrive at: Home [phone] Please do not come in for this visit. Your provider will call you at the number you provided. Future Orders Complete By Expires Referral to Cardiac Rehab [[id number] Custom] As directed Process Instructions: If no progress note charted, please enter Clinical details in comments. Scheduling Instructions: Questions: My question or request is: STEMI. Cardiac rehab at [facility] Referral to [facility] [REF43 Custom] As directed Process Instructions: If no progress note charted, please enter Clinical details in comments. Scheduling Instructions: Questions: My question or request is: patient with inferior stemi with history of statin allergy (rash) - please evaluate for psck9 inhibitor. Referral to Home Health - at DISCHARGE [[id number] CPT(R)] As directed Process Instructions: Scheduling Instructions: Comments: DOCUMENTATION FOR VNA SERVICES PATIENT'S LOCATION: [address] [address] (home) Accreditation Coordinator's Name: Self In discussion with the attending physician, it is certified that this patient is under his/her care and that MD, or an RN RESOURCE NURSE, CASH CLERK, or PA who is working directly with him/her, had a bkgc-rh-rboj encounter that meets the physician koit-my-aiof encounter requirements with this patient on 12/07/2019. [...] HEALTH CARE AGENCY: [facility], PHONE: [phone] FAX: [phone] Start of care: 24-48 hours after hospital [...] MD [address] / [place] [address] All A agencies which cover the area [...] contact info: PCP Discharge References/Attachments Atrial Fibrillation (Anguillan) Cardiac Rehabilitation ([place]guillan) Heart Failure ([place]guillan) Heart Failure: Limiting Sodium ([place]guillan) Hemorrhagic Stroke: General Info ([place]guillan) Smoking: Stopping ([place]guillan) Stroke Rehabilitation: General Info ([place]guillan) Pulmonary Embolism ([place]guillan) Riki Stevens MD PGY-3, Internal Medicine Cardiology S2, #[id number] Associated attestation - Paris Dodd MD - 12/09/2019 4:44 PM EDT Cardiology Attending Discharge Addendum I was the assigned attending motor vehicle license clerk for this clinical encounter. For the purposes [...] complications include novel onset, paroxysmal atrial fibrillation [[id number]: 5] & L-sided diplopia with potential hemineglect [...] My contact information: Paris Matt MD MPH [address], [place] [address] (office); Pager #[phone] Email: documented in this encounter Discharge Instructions Patient InstructionsFiRiki de jesus MD - 12/02/2019 9:56 AM EDT Images from the original note were not included. Why you were hospitalized: You had a heart attack. You received clot-busting medications at another hospital and then at [facility] you had a stent placed [...] FOR ONE MONTH AND THEN STOP. Your motor vehicle license clerk may tell you to start this medication again after one year. Clopidogrel (Plavix) 75 mg daily - This medication will help prevent clots from forming in your blood, which will help protect the stent that was placed in your heart vessel. TAKE THIS FOR ONE YEAR ANDTHEN DISCUSS WITH YOUR DUCTFIXING PLUMBER WHETHER TO STOP. Amiodarone 400mg twice daily [...] follow up: Your primary care provider and motor vehicle license clerk will manage your blood thinner (apixaban). You do not need lab monitoring of this medication. Diet: Please consume a healthy diet low in cholesterol Follow up Appointments: 12/10/2019 at 3:10PM with PCP Angel Luis Lott Future Appointments Date Time Provider Department Center 12/23/2019 1:30 PM Alfreda Salas APRN [facility] [id number] [facility] 12/26/2019 9:40 AM Merlin Sanchez MD [facility] CARD 4A [facility] 12/30/2019 3:40 PM Gretchen Yoon MD [facility] CARD 4A [facility] Future Appointments and Orders Future Appointments and Orders Future Appointments Provider Department Dept Phone 12/23/2019 1:30 PM Alfreda Salas APRN Neurosurgery at [facility] Arrive at: Home [phone] Please do not come in for this visit. Your provider will call you at the number you provided. 12/26/2019 9:40 AM Merlin Sanchez MD Cardiology at [facility] Arrive at: Home [phone] Please do not come in for this visit. Your provider will call you at the number you provided. 12/30/2019 3:40 PM Gretchen Yoon MD Cardiology at [facility] Arrive at: Home [phone] Please do not come in for this visit. Your provider will call you at the number you provided. Future Orders Complete By Expires Referral to Cardiac Rehab [[id number] Custom] As directed Process Instructions: If no progress note charted, please enter Clinical details in comments. Scheduling Instructions: Questions: My question or request is: STEMI. Cardiac rehab at [facility] Referral to [facility] [REF43 Custom] As directed Process Instructions: If no progress note charted, please enter Clinical details in comments. Scheduling Instructions: Questions: My question or request is: patient with inferior stemi with history of statin allergy (rash) - please evaluate for psck9 inhibitor. Referral to Home Health - at DISCHARGE [[id number] CPT(R)] As directed Process Instructions: Scheduling Instructions: Comments: DOCUMENTATION FOR VNA SERVICES PATIENT'S LOCATION: [address] [phone] (home) Accreditation Coordinator's Name: Self In discussion with the attending physician, it is certified that this patient is under his/her care and that MD, or an RN RESOURCE NURSE, CASH CLERK, or PA who is working directly with him/her, had a nort-to-brrm encounter that meets the physician uelc-gy-isey encounter requirements with this patient on 12/07/2019. [...] HEALTH CARE AGENCY: [facility], PHONE: [phone] FAX: [phone] Start of care: 24-48 hours after hospital [...] MD [address] / [place] [address] All A agencies which cover the area [...] info: PCP Your PCP: France Lam MD [phone] For questions regarding this document or issues relating to this hospitalization on the Cardiology Service, please contact your inpatient physician through the [facility] Account Services Representative . Issues after hours and on weekends will be handled by the Stone Splitter on-call. Patient Instructions: Neurology Your Diagnosis: Left [...] follow-up appointment in the neurology clinic at [facility]. See below for the appointment time. If you do not have an appointment, you will be called with a time/date for this appointment. ??? Primary Care Provider: Please follow up with your Primary Care Provider within one to 2 weeks ofdischarge. AttachmentsThe following attachments cannot be sent through Care Everywhere. Atrial Fibrillation ([place])Cardiac Rehabilitation ([place]guillan)Heart Failure ([place]guillan)Heart Failure: Limiting Sodium ([place]guillan)Hemorrhagic Stroke: General Info ([place]guillan)Smoking: Stopping ([place]guillan)Stroke Rehabilitation: General Info ([place]guillan)Pulmonary Embolism ([place]guillan)documented in this encounter Medications at Time of [...] consulted in the interim. Vikash Rodriguez Pager: [phone] Paris Dodd MD - 12/08/2019 8:57 AM [...] complications include novel onset, paroxysmal atrial fibrillation [FKG7HU3VJZR: 5] & L-sided diplopia with potential hemineglect [...] consulted in the interim. Vikash Rodriguez Pager: [phone] Paris Dodd MD - 12/07/2019 9:55 AM EDT Cardiology Service Attending Daily Progress Note Patient: Anegl Luis Salinas : 1945 Date of Admission: [...] complications include novel onset, paroxysmal atrial fibrillation [QHN6HJ8QYUY: 5] & L-sided diplopia with potential hemineglect [...] complications include novel onset, paroxysmal atrial fibrillation [STP4KU2MQJE: 5] & L-sided diplopia with potential hemineglect [...] complications include novel onset, paroxysmal atrial fibrillation [FEH8LA8FGKJ: 5] & L-sided diplopia with potential hemineglect [...] today; additional complications include paroxysmal atrial fibrillation [SIR2WJ5TZVH: 4] c/b possible cardioembolic stroke, ICH from [...] length from neck/greatest diameter to back wall: GIBRALTARIAN 91, CAU 13: 19 mm CORTES 1, [...] a non-culprit artery. S/P DESx3 in the mxkzdxhv-zf-fotcvb RCA. Aspiration thrombectomy performed, and integrellin bolus [...] complications include novel onset, paroxysmal atrial fibrillation [CAL3FM5GTOO: 5] & L-sided diplopia with potential hemineglect [...] R occipital cardioembolic stroke #Paroxysmal Afib with YL6YNWCU7O score of 5 #New segmental bilateral PEs [...] C/w Toprol XL 100mg BID - Hold ogpal inhibitors given soft blood pressures Diuresis: - [...] Glasgow MD PGY1, Internal Medicine Cardiology S2, #2523 Associated attestation - Paris Dodd MD - 12/05/2019 2:59 PM EDT I was the assigned attending motor vehicle license clerk for this clinical encounter. For the purposes [...] 12/04/2019 10:36 AM EDT Office of Care Management(OCM)/Optical Mechanic Apprentice(CM)/Discharge Planning Service: Cardiology S2 team CM Bernie Alexander,RN,BSN,MA,ACM pgr [phone] Reviewed record and in Cardiology Rounds with MD team,CMs, truck car and bus cleaner, INTERN RETAIL. Pt is anticipated ready for d/c later [...] AD to his PCP and to any [facility] appt for each to have [...] complications include novel onset, paroxysmal atrial fibrillation [ARJ0YU3TYMP: 4] & L-sided diplopia with potential hemineglect [...] a non-culprit artery. S/P DESx3 in the ghdozrns-dv-dkbzjq RCA. Aspiration thrombectomy performed, and integrellin bolus [...] complications include novel onset, paroxysmal atrial fibrillation [FSM5DY2XIGT: 5] & L-sided diplopia with potential hemineglect [...] R occipital cardioembolic stroke #Paroxysmal Afib with VV7FDMMC2J score of 5 - No anticoagulation for [...] Glasgow MD PGY1, Internal Medicine Cardiology S2, #1686 I have seen the patient and reviewed [...] in my clinic. Gretchen Yoon MD Pager [phone] Derian Pascual RN - 12/03/2019 9:29 AM [...] Discharge: None Electronically signed: Derian Pascual RN, Optical Mechanic Apprentice Pgr: [phone] 12/03/2019 9:29 AM Gretchen Yoon [...] complications include novel onset, paroxysmal atrial fibrillation [YKS3TC2XQXW: 4] & L-sided diplopia with potential hemineglect [...] a non-culprit artery. S/P DESx3 in the yxsiczbt-vk-jrvasj RCA. Aspiration thrombectomy performed, and integrellin bolus [...] complications include novel onset, paroxysmal atrial fibrillation [DYQ4LO0NHMM: 5] & L-sided diplopia with potential hemineglect [...] [facility]. Patient voiced strong will to quit smoking now, understood that we have resources available for help. Plan [P]: --Neurologic-- # Concern for Left-Sided Diplopia, r/o Hemineglect # Concern for CVA, last-known well 11/29/19 - MRI showed possible cardioembolic stroke #Afib with VJ7ZFJPV8U score of 5 - Stroke Team Consulted; [...] Anticoagulation/Arrhythmia # Novel Onset, Paroxsymal Atrial Fibrillation [[id number]: 5] - Hold off anticoagulation for at [...] w straight cath prn # Nutrition - [facility] Diet, 2g Na. -- Hematology/Oncology-- [...] Glasgow MD PGY1, Internal Medicine Cardiology S2, #1011 I have seen the patient and reviewed the resident's above history and I agree with the details as written. The assessment and plan were formulated in discussion with me and I agree with them as documented. Gretchen Yoon MD Pager [phone] Raul Hein RN - 12/03/2019 5:55 AM [...] Negative mcL Appearance UA Clear Clear Spec Union UA 1.026 1.006 - 1.030 Color UA [...] PGY3 Neurology Resident 12/01/2019 Vascular Neurology Pager [phone] Neurology Attending Attestation I evaluated the patient [...] documented. Deepthi Roman MD Vascular Neurology Standard [facility] Swallow Screen: This screen is [...] diet as medical provider deems appropriate. Consider PRODUCTION TESTER consult for full evaluation and diet recommendations. [...] complications include novel onset, paroxysmal atrial fibrillation [SZI3VG4GGMF: 4] & L-sided diplopia with potential hemineglect [...] a non-culprit artery. S/P DESx3 in the ygdhcawj-rk-svufzi RCA. Aspiration thrombectomy performed, and integrellin bolus [...] complications include novel onset, paroxysmal atrial fibrillation [OWL6KW3RANJ: 5] & L-sided diplopia with potential hemineglect [...] Anticoagulation/Arrhythmia # Novel Onset, Paroxsymal Atrial Fibrillation [GYC7PH6IMXN: 5] - Hold off anticoagulation - pending [...] tamsulosin d/t low BP. # Nutrition - [facility] Diet -- Hematology/Oncology-- # Mild [...] Glasgow MD PGY1, Internal Medicine Cardiology S2, #1865 I have seen the patient and reviewed [...] the ICU team. Gretchen Yoon MD Pager [phone] Natalia Claros APRN - 12/02/2019 8:38 AM [...] - We are signing off. Please page [phone] with any questions or concerns. For questions please call NSGY pager [phone] Natalia Claros APRN 12/02/2019 8:38 AM Clinical Documentation Improvement: Active Hospital Problems Diagnosis ??? Acute ST elevation myocardial infarction (STEMI) of inferior wall ??? Intracranial hemorrhage ??? Hyperlipidemia ??? Tobacco abuse ??? Claudication from peripheral vascular disease, left Resolved Hospital Problems No resolved problems to display. Tello Hsu, ENGRAVER TIRE MOLD - 12/02/2019 2:06 AM EDT 12/01/192009 Oxygen [...] Scan in afternoon. [facility] placed on low [...] complications include novel onset, paroxysmal atrial fibrillation [RWX4BU1SZJB: 4] & L-sided diplopia with potential hemineglect for which CVA evaluationto be pursued. Active Problems/Subjective: - 11/28: admitted for inferior STEMI, RV failure requiring pressor - got lytics, aspirin and plavix load, heparin gtt, and eptifibatide. 3 MACARIO stents to RCA. Christine cath - low wedge & CVP so [...] a non-culprit artery. S/P DESx3 in the brizwtyx-xg-fesyrh RCA. Aspiration thrombectomy performed, and integrellin bolus [...] complications include novel onset, paroxysmal atrial fibrillation [QAM8CC1NJJN: 4] & L-sided diplopia with potential hemineglect [...] Anticoagulation/Arrhythmia # Novel Onset, Paroxsymal Atrial Fibrillation [ASV4OP7DHNN: 4] - Obtain: TTE - Pending CVA [...] tamsulosin d/t low BP. # Nutrition - [facility] Diet -- Hematology/Oncology-- # Mild [...] MD, PGY1 PGY3, Internal Medicine Cardiology S2, #2974 I have seen the patient and reviewed [...] down the line. Gretchen Yoon MD Pager [phone] ?? Gretchen Yoon MD Pager [phone] Natalia Claros APRN - 12/01/2019 1:33 AM [...] per primary team For questions please call [employer] pager [phone] Natalia Claros APRN 12/01/2019 7:42 AM Clinical Documentation Improvement: Active Hospital Problems Diagnosis ??? Acute ST elevation myocardial infarction (STEMI) of inferior wall ??? Intracranial hemorrhage ??? Hyperlipidemia ??? Tobacco abuse ??? Claudication from peripheral vascular disease, left Resolved Hospital Problems No resolved problems to display. Tello Hsu, ENGRAVER TIRE MOLD - 11/30/2019 8:44 PM EDT Respiratory Therapy [...] EDT Narrative:Visited in response to request for Woodyard Crane Operator services. Pt was awake, alert, oriented and in bed. Assessment:Patient coping positively with stresses of illness/hospitalization at this time. Pt says that he is hoping to get better and pt is living with and has children and grandchildren. Pt haspurpose of life and has reason to get getter and to be with family. Outcome: Provided emotional and spiritual support and encouraging presence. Woodyard Crane Operator services accepted.Conversation to build trusting relationship.Provided [...] complications include novel onset, paroxysmal atrial fibrillation [OHZ2KV6BWWL: 4] & L-sided diplopia with potential hemineglect for which CVA evaluationto be pursued. Active Problems/Subjective: - Overnight, CVP < 12 for which a total of 1 L IVF provided - Today AM, patient complains of subjectively reported, left-sided hemineglect with floaters and diplopia [see: exam]. - Otherwise, c/o neck pain 2/2 R IJ Christine & L radial A line. Otherwise, denies [...] a non-culprit artery. S/P DESx3 in the edsxqlkc-jo-alljrx RCA. Aspiration thrombectomy performed, and integrellin bolus [...] complications include novel onset, paroxysmal atrial fibrillation [FTH3UM3YEFZ: 4] & L-sided diplopia with potential hemineglect [...] Anticoagulation/Arrhythmia # Novel Onset, Paroxsymal Atrial Fibrillation [FWR6JD5QEZK: 4] - Obtain: TTE to confirm rhythm [...] tamsulosin d/t low BP. # Nutrition - [facility] Diet -- Hematology/Oncology-- # Mild [...] MD, PGY3 PGY3, Internal Medicine Cardiology S2, #5930 I have seen the patient and reviewed [...] down the line. Gretchen Yoon MD Pager [phone] Paola Capps RN - 11/30/2019 6:57 AM EDT PT still requiring 4 of levo, several attempts to titrate down (maps in 70;s) But maps would drop toless than 65. Pt very restless in bed Raising and lowering head denies pain . Integrillin stopped [id number] when bottle complete , urine tea colored [...] PCP: France Lam MD PCP phone #: [phone] Public Opinion Survey Taker: None ID/Chief Complaint: Chest pain History of [...] and Compazine. He was transferred directly to [facility] via [facility] for further management. Patient had an emergent PCI with 3 MACARIO stents placed to his RCA, with mild disease of LCX (report pending) at [facility]. He was found to be persistently hypotensive requiring Levo up to 10mcg/min. [facility] after the cath [...] than 65 pack years. Family history of GA in father and two uncles. He's takingbaby [...] ??? Penicillins Pt doesn't remember reaction ??? Wmepccm-Ebd-Nhv Reductase Inhibitors Stiff neck, upset stomach, back pain Family History: Mother: Father: GA 2 Uncles with MIs Social History: Tobacco: Current active smoker 1 ppd. 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 Vitals: Last value Range last [...] in the last 7068 hours. Invalid input(s): [id number] Heme: No results for input(s): LDH, HAPTOGLOBIN, [...] OSH prior to transfer and PCI at [facility]. Massive inferior STEMI with troponin level 20, currently in CVCC due to pressor requirement. BedsideRHC demonstrated evidence of elevated right sided heart failure, but his wedge was wnl. He received 1L bolus with improvement of his blood pressure and reduction of his pressor requirement. PLAN: Admit to Cardiology, S2 Team Pager # [phone] #Inferior STEMI, LEYLA 149 - Resolving EKG [...] inferior STEMI s/p lytic therapy. Transferred to [facility] and underwent successful PCI of the RCA with MACARIO x3. Gretchen Yoon MD Pager [phone] documented in this encounter Procedure Notes Juventino [...] to the planned procedure. Hand Hygiene: The paper twister did perform hand hygiene prior to arterial [...] a suspected line-associated infection. [facility] Procedure[facility] Risks and Benefits: [...] to the planned procedure. Hand Hygiene: The paper twister did perform hand hygiene prior to line [...] side:right An Introducer (PSI Kit) was used. [place]. Insertion Side: right. Insertion Site: internal jugular. Catheter Details: Number of Lumens: 1 Catheter Type: heparin-coated The line was placed over a guidewire. Confirmation of Venous Placement: Venous placement was confirmed by transducing the pressure. Introducer Insertion Attempts: 1 Comments: Floating the Christine-Mo Catheter Attempts: 1 Comments: Sterile Dressing: Biopatch [...] better pt back in SR. Please page [phone] for any more cares or concerns Plan [...] complications include novel onset, paroxysmal atrial fibrillation [[id number]: 5]& L-sided diplopia with potential hemineglect for [...] Total Evaluation Minutes, Occupational Therapy: 10 Pager: [phone] FRANCINE Nuñez Occupational Therapy Rehabilitation Department Plan [...] complications include novel onset, paroxysmal atrial fibrillation [[id number]: 5] & L-sided diplopia with potential hemineglect [...] hand rails). Baseline Mobility: Independent. Drives. 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 Time IN / OUT: 8444-8838 Total Evaluation Minutes, Physical Therapy: 15(gtx1) Barbara Baldwin, PT Pager: [phone] Physical Therapy Inpatient Rehabilitation Department Plan of [...] he receives all he needs through the [facility]. Consult refused. Romain Tran, MSN, RN-, [facility] Tobacco Precision Lens [employer] [facility] Pager #[phone] Plan of Care - Romain Oglesby OT [...] complications include novel onset, paroxysmal atrial fibrillation [[id number]: 5] & L-sided diplopia with potential hemineglect [...] and measurable assessment of functional outcome. Pager: [phone] ROMAIN OGLESBY OT 12/03/2019 Occupational Therapy Rehabilitation [...] in an outpatient cardiac rehabilitation program at [facility] was discussed. Patient agrees to a referral to this program. His has been a cardiac rehab patient at [facility] and he is familiar with the program. [...] complications include novel onset, paroxysmal atrial fibrillation [[id number]: 5] & L-sided diplopia with potential hemineglect [...] hand rails). Baseline Mobility: Independent. Drives. 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 Time IN / OUT: 4967-4128 Total Evaluation Minutes, Physical Therapy: 25(eval, gtx1) Barbara Baldwin, PT Pager: [phone] Physical Therapy Inpatient Rehabilitation Department Consult Note [...] Please contact JOHANNA NOBLES RN on pager [phone] or the wound care team at [phone] or pager [phone] skin and wound care concerns or questions. [...] making law. Any patient receiving carspousee at [facility] must abide by [place] law. The hierarchy [...] (i) The agent with financial power of quality assurance supervisor trim or a conservator appointed in accordance with [...] Insurance: N/A Prescription Coverage: Yes Preferred Pharmacy[place] Other: No Primary Care Provider: France Lam MD [phone] Patient/Caregiver Goals of Treatment: Return home Potential Needs for Transition of Care: Rehab/SNF: Based on discussions with the multi-disciplinary healthcare team, the patient would benefit from SNF level of care at discharge. ?? I have met with the patient to discuss discharge planning needs. I have provided the [facility], Officeof Care Management letter from the Behavioral Health Rn pertaining to rehab referrals. I have also provided a letter describing our affiliations within the [facility] and educated them about their [...] to: ?? [facility]. [facility] [address] [place] [address] ?? [address]. [address] , [place] [address] Note routed to [facility] [employer] who will communicate referrals to facilities and provide any required information. Home Health: If therapies recommend home w/ VNA, the patient has been provided a list of Home Health Agencies/DME vendors which serve their preferred geographic area. A letter describing our affiliations was reviewed with them and they were educated about their right to choose where referrals are placed. Patient requests referral to [facility] [employer]. PHONE: [phone] FAX: [phone] Referral routed to the [facility] for matching with agency/vendor and to provide [...] Insured w/ Medicare. Gets medications filled at [facility] in [place], [place]. Son to transport at discharge Plan: Discharge dispo depending on patient's physical recovery; SNF vs home w/ VNA. A member of the Care Management team will continue to monitor progress, follow for continuity of care and assist with transition of care planning. Derian Pascual RN Pager: [phone] Plan of Care - Estefani Encarnacion RN [...] ??? Penicillins Pt doesn't remember reaction ??? Elgxglq-Phu-Ubs Reductase Inhibitors Stiff neck, upset stomach, back [...] noncontrast head CT and CT of the [place] at 1600 hrs. We will [...] vision concerning for stroke. Patient presented to [facility] in transfer for a STEMI [...] ??? Penicillins Pt doesn't remember reaction ??? Oowpcqr-Sdq-Jlq Reductase Inhibitors Stiff neck, upset stomach, back [...] file Gets together: Not on file Attends caodaism service: Not on file Active member of [...] Elbow flexion 5/5 R, 5/5 L Community Health Nursing Director LE: 5/5 R, 5/5 L Hip [...] PGY3 Neurology Resident 11/30/2019 Vascular Neurology Pager [phone] Standard [facility] Swallow Screen: This screen is [...] diet as medical provider deems appropriate. Consider PRODUCTION TESTER consult for full evaluation and diet recommendations. [...] admitted s/p thrombolysis and Cath-Stent to [facility] who developed R sided visual symptoms. [...] hours. Evan Mejia MD Department of Neurology [facility] Brief Op Note - Gretchen Yoon MD - 11/29/2019 8:38 PM EDT Brief Operative Note Patient Name: Angel Luis Salinas : [id number] MR#: [id number] Case Date: 11/29/2019 Surgeon: Surgeon(s) and Role: * Gretchen Yoon MD - Primary * Aidan Ward MD - Fellow Preoperative diagnosis: Inferior STEMI Postoperative diagnosis: Inferior STEMI Procedure(s) (LRB): CARDIAC CATHETERIZATION (N/A) Findings: Discrete 90% stenosis in the prox-to-mid RCA. Severe diffuse disease in the distal vessel. Discrete LCX stenosis in a non-culprit artery. S/P DESx3 in the wcdjfzcs-rl-ddxcoi RCA. Aspiration thrombectomy performed, and integrellin bolus [...] are i n the results section. CT [place] W STAT 11/30/2019 4:36 Res [...] 3.9 3.5 - 5.0 [facility] mmol/L [facility] Comment: Please note: ??Patients with WBC [...] Organization Address City/State/ZIP [place] [address] (ABNORMAL) Hemogram (12/08/2019 12:39 PM EDT) Analysis Performed At Patho logist Time Signature WBC 9.9 (H) 4.0 - 9.5 [facility] x[facility](3[facility] LABORATORY RBC 4.51 (L) 4.58 - [place]IV[place] 5.54 [facility] x10(6)/[facility] LABORATORY Hemoglobin 13.0 (L) 13.7 - [place] 16.5 gm/dL [facility] Hematocrit 40.5 40.5 - [place] 48.5 % [facility] MCV 89.8 82.9 - [facility] OLIVIA 93.1 [facility] LABORATORY MCH 28.8 27.5 - [place] 32.1 pg [facility] MCHC 32.1 32.0 - [place] 35.7 gm/dL [facility] Platelets 214 145 - 357 [facility] x10(3)/[facility] LABORATORY RDWSD 49.2 (H) 36.0 - [place] 45.0 [facility] LABORATORY RDWCV 15.1 (H) 11.4 - [facility] 13.8 % [facility] MPV 12.1 7.6 - 12.9 [facility] OLIVIA [facility] LABORATORY nRBC % Auto 0.0 % [facility] LABORATORY nRBC Abs Auto 0.000 0.000 - [facility] 0.000 [facility] x10(3)/[facility] LABORATORY Specimen Anatomical Collection Method Collection Time Receive d Time (Source) Location / / Volume Laterality Blood specimen 12/08/2019 12:39 0 (specimen) PM EDT 12:47 PM EDT Resulting Agency Comment Spec In Lab Gretchen Yoon MD HEMATOLOGY ORDERABLES Performing Organization Address City/State/ZIP Code Phon e Number [address] Hepatic Function Panel (12/08/2019 6:28 AM EDT) athologist Signature Total Protein 6.6 6.1 - 8.0 [place] gm/dL [facility] Albumin 3.2 3.2 - 5.2 [place] gm/dL [facility] AST 18 0 - 39 [place] unit/L [facility] ALT 13 0 - 55 [facility] OLIVIA unit/L [facility] Alk Phos 64 40 - 130 [facility] OLIVIA unit/L [facility] Total 0.4 0.2 - 1.3 [place] Bilirubin mg/dL [facility] Bili, Direct 0.1 0.0 - 0.3 [facility] OLIVIA mg/dL [facility] Specimen Anatomical Collection Method Collection Time Receive d Time (Source) Location / / Volume Laterality Blood specimen Venous Draw / 12/08/2019 6:28 AM 2019 6:36 (specimen) Unknown EDT AM EDT Resulting Agency Comment Spec In Lab Riki Stevens MD CHEMISTRY ORDERABLES Performing Organization Address City/[facility]/ZIP Code Phon e Number [address] (ABNORMAL) TSH (12/08/2019 6:28 AM EDT) athologist Signature TSH 5.27 (H) 0.27 - 4.20 [facility] mcIU/mL [facility] Specimen Anatomical Collection Method Collection Time Receive d Time (Source) Location / / Volume Laterality Blood specimen Venous Draw / 12/08/2019 6:28 AM 2019 6:36 (specimen) Unknown EDT AM EDT Resulting Agency Comment Spec In Lab Darrell Glasgow MD CHEMISTRY ORDERABLES Performing Organization Address City/[facility]/ZIP Code Phon e Number [address] Potassium (12/08/2019 6:28 AM EDT) P athologist Signature Potassium 4.2 3.5 - 5.0 [facility] mmol/L [facility] Comment: Please note: ??Patients with WBC [...] Organization Address City/State/ZIP [place] [address] (ABNORMAL) Differential, Automated (12/08/2019 12:43 AM EDT) Patholo gist Method Time Signature Neutrophils % 60.7 % [facility]ORY Neutr Abs (ANC) 6.81 (H) 1.70 - [facility] 6.10 [facility] x10(3)/[facility] LABORATORY Lymphocytes % 23.4 % [facility] LABORATORY Lymphocytes Abs 2.6 0.9 - 3.2 [facility] x10(3)/[facility] LABORATORY Monocytes % 10.0 % [facility]ORY Monocyte Abs 1.1 (H) 0.3 - 0.9 [facility] x10(3)/[facility] LABORATORY Eosinophils % 3.7 % [facility] Eosinophils Abs 0.4 0.0 - 0.4 [facility] x10(3)/[facility] LABORATORY Basophils % 1.2 % [facility] LABORATORY Basophils Abs 0.1 0.0 - 0.1 [facility] x10(3)/[facility] LABORATORY Immature Gran % 1.00 % [facility] [...] Abs 0.11 (H) 0.00 - 0.04 x10(3)/[facility] LABORATORY Specimen Anatomical Collection Method Collection Time Receive d Time (Source) Location / / Volume Laterality Blood specimen 12/08/2019 12:43 0 (specimen) AM EDT 12:52 AM EDT Resulting Agency Comment Spec In Lab Riki Stevens MD HEMATOLOGY ORDERABLES Performing Organization Address City/State/ZIP [place] [address] (ABNORMAL) Hemogram (12/08/2019 12:43 AM EDT) Analysis Performed At Patho logist Time Signature WBC 11.2 (H) 4.0 - 9.5 [facility] x10(3)/[facility] LABORATORY RBC 4.46 (L) 4.58 - [facility] OLIVIA 5.54 [facility] x10(6)/[facility] LABORATORY Hemoglobin 13.1 (L) 13.7 - [facility] 16.5 gm/dL [facility] Hematocrit 40.5 40.5 - [facility] OLIVIA 48.5 % [facility] MCV 90.8 82.9 - [facility] 93.1 [facility] LABORATORY MCH 29.4 27.5 - [facility] OLIVIA 32.1 pg [facility] MCHC 32.3 32.0 - [facility] OLIVIA 35.7 gm/dL [facility] Platelets 215 145 - 357 [facility] x10(3)/[facility] LABORATORY RDWSD 49.8 (H) 36.0 - [facility] OLIVIA 45.0 [facility] LABORATORY RDWCV 15.2 (H) 11.4 - [facility] OLIVIA 13.8 % [facility] MPV 12.3 7.6 - 12.9 [facility] LABORATORY nRBC % Auto 0.0 % [facility] LABORATORY nRBC Abs Auto 0.000 0.000 - [facility] JouleX 0.000 [facility] x10(3)/[facility] LABORATORY Specimen Anatomical Collection Method Collection Time Receive d Time (Source) Location / / Volume Laterality Blood specimen 12/08/2019 12:43 0 (specimen) AM EDT 12:52 AM EDT Resulting Agency Comment Spec In Lab Riki Stevens MD HEMATOLOGY ORDERABLES Performing Organization Address City/State/ZIP Code Phon e Number [address] Magnesium (12/08/2019 12:43 AM EDT) athologist Signature Magnesium 1.01 0.69 - 1.07 [facility] mmol/L [facility] Specimen Anatomical Collection Method Collection Time Receive d Time (Source) Location / / Volume Laterality Blood specimen 12/08/2019 12:43 0 (specimen) AM EDT 12:52 AM EDT Resulting Agency Comment Spec In Lab Gretchen Yoon MD CHEMISTRY ORDERABLES Performing Organization Address City/State/[place] [address] (ABNORMAL) BMP w/fasting Glucose (12/08/2019 12:43 AM EDT) P athologist Signature Glucose 106 (H) 65 - 99 [facility] Fasting mg/dL [facility] Comment: ?Fasting* Glucose Interpretive C riteria [...] of Diabetes Mellitus, Position Statement from the [place] [employer]. ??Diabete s Care, Volume 33, Supplement 1, Jul 2009 BUN 14 10 - 20 mg/dL [facility] LABORATORY Creatinine 1.16 0.80 - 1.50 mg/dL [...] of body mass or the acutely ill. http://Ad[employer]/[facility]kf eGFR 72 >=60 mL/min/1.73 m?? [facility] Comment: The eGFR was calculated using the CKD-EP I equation. As with all creatinine based estimates of kidney function, eGFR values calculated with the CKD-EPI equation are not accurate in patients wi th acute kidney failure, extremes of body mass or the acutely ill. http://[employer]/[facility] Specimen Anatomical Collection Method Collection Time Receive d Time (Source) Location / / Volume Laterality Blood specimen 12/08/2019 12:43 0 (specimen) AM EDT 12:52 AM EDT Resulting Agency Comment Spec In Lab Gretchen Yoon MD CHEMISTRY ORDERABLES Performing Organization Address City/State/ZIP [place] [address] Heparin (unfractionated) Level (12/08/2019 12:43 AM EDT) athologist Signature Heparin UFH 0.60 IU/mL [facility] Comment: [...] Organization Address City/State/ZIP [place] [address] Potassium (12/07/2019 8:39 PM EDT) athologist Signature Potassium 4.1 3.5 - 5.0 [facility] mmol/L [facility] Comment: Please note: ??Patients with WBC [...] Lagos MD CHEMISTRY ORDERABLES Performing Organization Address City/[facility]/[place] [address] Potassium (12/07/2019 4:02 PM EDT) P athologist Signature Potassium 4.0 3.5 - 5.0 [place] mmol/L [facility] Comment: Please note: ??Patients with WBC [...] Yoon MD CHEMISTRY ORDERABLES Performing Organization Address City/[facility]/[place] [address] (ABNORMAL) Hemogram (12/07/2019 4:02 PM EDT) Analysis Performed At Patho logist Time Signature WBC 17.4 (H) 4.0 - 9.5 [place] x10(3)/[facility] LABORATORY RBC 4.58 4.58 - [place] 5.54 [facility] x10(6)/[facility] LABORATORY Hemoglobin 13.5 (L) 13.7 - [place] OLIVIA 16.5 gm/dL [facility] Hematocrit 40.8 40.5 - [place] 48.5 % [facility] MCV 89.1 82.9 - [place] OLIVIA 93.1 [facility] LABORATORY MCH 29.5 27.5 - [place] OLIVIA 32.1 pg [facility] MCHC 33.1 32.0 - [place] OLIVIA 35.7 gm/dL [facility] Platelets 238 145 - 357 [place] OLIV[place] x10(3)/[facility] LABORATORY RDWSD 48.8 (H) 36.0 - [place] OLIVIA 45.0 [facility] LABORATORY RDWCV 15.0 (H) 11.4 - [facility] 13.8 % [facility] MPV 12.2 7.6 - 12.9 [facility] LABORATORY nRBC % Auto 0.0 % [facility] LABORATORY nRBC Abs Auto 0.000 0.000 - [place] MARSHOLIVIA 0.000 [facility] x10(3)/[facility] LABORATORY Specimen Anatomical Collection Method Collection Time Receive d Time (Source) Location / / Volume Laterality Blood specimen 12/07/2019 4:02 PM 020 4:08 (specimen) EDT PM EDT Resulting Agency Comment Spec In Lab Gretchen Yoon MD HEMATOLOGY ORDERABLES Performing Organization Address City/[facility] [place] [address] EKG 12 Lead (12/07/2019 [...] (Bezet) Calculated P -12 degrees MUSE SYSTEM [place] Calculated R 10 degrees MUSE SYSTEM [place] Calculated T -138 degrees MUSE SYSTEM [place] INTERPRETATION Supraventricular tachycardia MUSE SYSTEM Low voltage [...] 4.2 3.5 - 5.0 [facility] mmol/L [facility] Comment: Please note: ??Patients with WBC [...] Lagos MD CHEMISTRY ORDERABLES Performing Organization Address City/[facility] [place] [address] Heparin (unfractionated) Level (12/07/2019 11:43 AM EDT) athologist Signature Heparin UFH 0.59 IU/mL [facility] Comment: Guidelines for therapeutic unfractionate d [...] Lagos MD HEMATOLOGY ORDERABLES Performing Organization Address [facility]/ZIP [place] [address] Heparin (unfractionated) Level (12/07/2019 5:20 AM EDT) P athologist Signature Heparin UFH 0.53 IU/mL [facility]ORY Comment: Guidelines for therapeutic unfractionate d [...] Organization Address City/State/[place] [address] (ABNORMAL) Differential, Automated (12/07/2019 5:20 AM EDT) Patholo gist Method Time Signature Neutrophils % 62.4 % [facility] Neutr Abs (ANC) 5.46 1.70 - [facility] 6.10 [facility] x10(3)/[facility] LABORATORY Lymphocytes % 20.3 % [facility] Lymphocytes Abs 1.8 0.9 - 3.2 [facility] x10(3)/[facility] LABORATORY Monocytes % 11.0 % [facility] Monocyte Abs 1.0 (H) 0.3 - 0.9 [facility] x10(3)/[facility] LABORATORY Eosinophils % 4.5 % [facility] Eosinophils Abs 0.4 0.0 - 0.4 [facility] x10(3)/[facility] LABORATORY Basophils % 0.9 % [facility] Basophils Abs 0.1 0.0 - 0.1 [facility] x10(3)/[facility] LABORATORY Immature Gran % 0.90 % [facility] [...] Abs 0.08 (H) 0.00 - 0.04 x10(3)/[facility] LABORATORY Specimen Anatomical Collection Method Collection Time Receive d Time (Source) Location / / Volume Laterality Blood specimen 12/07/2019 5:20 AM 020 5:37 (specimen) EDT AM EDT Resulting Agency Comment Spec In Lab Riki Stevens MD HEMATOLOGY ORDERABLES Performing Organization Address City/State/ZIP Code Phon e Number [place] [id number] (ABNORMAL) Hemogram (12/07/2019 5:20 AM EDT) Analysis Performed At Patho logist Time Signature WBC 8.7 4.0 - 9.5 [facility] x10(3)/[facility] LABORATORY RBC 4.20 (L) 4.58 - [facility] 5.54 [facility] x10(6)/[facility] LABORATORY Hemoglobin 12.3 (L) 13.7 - [facility] 16.5 gm/dL [facility] Hematocrit 37.4 (L) 40.5 - [facility] 48.5 % [facility] MCV 89.0 82.9 - [facility] 93.1 fL [facility] MCH 29.3 27.5 - [facility] 32.1 pg [facility] MCHC 32.9 32.0 - [place]EL[place] MONAE 35.7 gm/dL [facility] Platelets 181 145 - 357 MELINA MONAE x10(3)/[facility] LABORATORY RDWSD 47.7 (H) 36.0 - MELINA MONAE 45.0 [facility] LABORATORY RDWCV 14.8 (H) 11.4 - [facility] OLIVIA 13.8 % [facility] MPV 12.3 7.6 - 12.9 [place] OLIVIA [facility] LABORATORY nRBC % Auto 0.0 % [facility]ORY nRBC Abs Auto 0.000 0.000 - [place] MONAE 0.000 [facility] x10(3)/[facility] LABORATORY Specimen Anatomical Collection Method Collection Time Receive d Time (Source) Location / / Volume Laterality Blood specimen 12/07/2019 5:20 AM 020 5:37 (specimen) EDT AM EDT Resulting Agency Comment Spec In Lab Riki Stevens MD HEMATOLOGY ORDERABLES Performing Organization Address City/State/ZIP Code Phon e Number [address] Magnesium (12/07/2019 5:20 AM EDT) P athologist Signature Magnesium 0.89 0.69 - 1.07 [facility] mmol/L [facility] Specimen Anatomical Collection Method Collection Time Receive d Time (Source) Location / / Volume Laterality Blood specimen 12/07/2019 5:20 AM 020 5:37 (specimen) EDT AM EDT Resulting Agency Comment Spec In Lab Gretchen Yoon MD CHEMISTRY ORDERABLES Performing Organization Address City/State/ZIP Code Phon e Number [address] (ABNORMAL) BMP w/fasting Glucose (12/07/2019 5:20 AM EDT) P athologist Signature Glucose 100 (H) 65 - 99 [facility]dL [facility] Comment: ?Fasting* Glucose Interpretive C riteria [...] of Diabetes Mellitus, Position Statement from the [place] [employer]. ??Diabete s Care, Volume 33, [...] of body mass or the acutely ill. [email or web address] eGFR 101 >=60 mL/min/1.73 m?? [facility] LABOR[facility]ORY Comment: The eGFR was calculated using the CKD-EP I equation. As with all creatinine based estimates of kidney function, eGFR values calculated with the CKD-EPI equation are not accurate in patients wi th acute kidney failure, extremes of body mass or the acutely ill. [email or web address] Specimen Anatomical Collection Method Collection Time Receive d Time (Source) Location / / Volume Laterality Blood specimen 12/07/2019 5:20 AM 020 5:37 (specimen) EDT AM EDT Resulting Agency Comment Spec In Lab Gretchen Yoon MD CHEMISTRY ORDERABLES Performing Organization Address City/[facility] [place] [address] Heparin (unfractionated) Level (12/06/2019 10:14 PM EDT) athologist Signature Heparin UFH 0.29 IU/mL [facility] LABORATORY Comment: Guidelines for therapeutic unfractionate d [...] Lagos MD HEMATOLOGY ORDERABLES Performing Organization Address City/[facility]/[place]IP [place] [address] Head wo Contrast [...] For questions regarding this report, please contact [facility] number below. ? Narrative 12/06/2019 10:06 [...] Signature WBC 10.4 (H) 4.0 - 9.5 [facility] x10(3)/[facility] LABORATORY RBC 4.32 (L) 4.58 - [facility] OLIVIA 5.54 [facility] x10(6)/[facility] LABORATORY Hemoglobin 12.5 (L) 13.7 - [facility] 16.5 gm/dL [facility] Hematocrit 38.4 (L) 40.5 - [facility] 48.5 % [facility] MCV 88.9 82.9 - [facility] 93.1 [facility] LABORATORY MCH 28.9 27.5 - [place]IV[place] 32.1 pg [facility] MCHC 32.6 32.0 - [facility] 35.7 gm/dL [facility] Platelets 194 145 - 357 [facility] x10(3)/[facility] LABORATORY RDWSD 46.9 (H) 36.0 - [facility] 45.0 [facility] LABORATORY RDWCV 14.6 (H) 11.4 - [facility] OLIVIA 13.8 % [facility] MPV 11.9 7.6 - 12.9 [facility] [place] [facility] LABORATORY nRBC % Auto 0.0 % [facility] LABORATORY nRBC Abs Auto 0.000 0.000 - [facility] OLIVIA 0.000 [facility] x10(3)/[facility] LABORATORY Specimen Anatomical Collection Method Collection Time Receive d Time (Source) Location / / Volume Laterality Blood specimen 12/06/2019 4:20 PM 020 4:31 (specimen) EDT PM EDT Resulting Agency Comment Spec In Lab Gretchen Yoon MD HEMATOLOGY ORDERABLES Performing Organization Address City/State/ZIP [place] [address] Heparin (unfractionated) Level (12/06/2019 4:20 PM EDT) P athologist Signature Heparin UFH 0.30 IU/mL [facility] LABORATORY Comment: Guidelines for therapeutic unfractionate d [...] Organization Address City/State/ZIP [place] [address] Heparin (unfractionated) Level (12/06/2019 10:02 AM EDT) athologist Signature Heparin UFH <0.04 IU/mL [facility] LABORATORY Comment: Guidelines for therapeutic unfractionate d [...] Organization Address City/State/ZIP Code Phon e Number [address] Magnesium (12/06/2019 3:36 AM EDT) P athologist Signature Magnesium 0.86 0.69 - 1.07 [facility] mmol/L [facility] Specimen Anatomical Collection Method Collection Time Receive d Time (Source) Location / / Volume Laterality Blood specimen 12/06/2019 3:36 AM 020 3:45 (specimen) EDT AM EDT Resulting Agency Comment Spec In Lab Gretchen Yoon MD CHEMISTRY ORDERABLES Performing Organization Address City/State/[place] [address] (ABNORMAL) BMP w/fasting Glucose (12/06/2019 3:36 AM EDT) P athologist Signature Glucose 103 (H) 65 - 99 [facility] Fasting mg/dL [facility] Comment: ?Fasting* Glucose Interpretive C riteria [...] of Diabetes Mellitus, Position Statement from the [place] [employer]. ??Diabete s Care, Volume 33, [...] of body mass or the acutely ill. http://AdMob/[facility] AMERICA – TULSAnkf eGFR 99 >=60 mL/min/1.73 m?? [facility] Comment: The eGFR was calculated using the CKD-EP I equation. As with all creatinine based estimates of kidney function, eGFR values calculated with the CKD-EPI equation are not accurate in patients wi th acute kidney failure, extremes of body mass or the acutely ill. http://AdMob/[facility] AMERICA – TULSAnkf Specimen Anatomical Collection Method Collection Time Receive d Time (Source) Location / / Volume Laterality Blood specimen 12/06/2019 3:36 AM 020 3:45 (specimen) EDT AM EDT Resulting Agency Comment Spec In Lab Gretchen Yoon MD CHEMISTRY ORDERABLES Performing Organization Address City/State/[place] [address] (ABNORMAL) Hemogram (12/06/2019 3:36 AM EDT) Analysis Performed At Patho logist Time Signature WBC 9.2 4.0 - 9.5 [facility] LABORATORY RBC 3.99 (L) 4.58 - [place] 5.54 [facility] x10(6)/[facility] LABORATORY Hemoglobin 11.9 (L) 13.7 - [place] 16.5 gm/dL [facility] Hematocrit 35.5 (L) 40.5 - [facility] 48.5 % [facility] MCV 89.0 82.9 - [facility] 93.1 [facility] LABORATORY MCH 29.8 27.5 - [place] 32.1 pg [facility] MCHC 33.5 32.0 - [place] 35.7 gm/dL [facility] Platelets 164 145 - 357 [facility] x10(3)/[facility] LABORATORY RDWSD 47.6 (H) 36.0 - [place] 45.0 [facility] LABORATORY RDWCV 14.7 (H) 11.4 - [facility] OLIVIA 13.8 % [facility] MPV 11.9 7.6 - 12.9 [facility] LABORATORY nRBC % Auto 0.0 % [facility] LABORATORY nRBC Abs Auto 0.000 0.000 - [place] 0.000 [facility] x10(3)/[facility] LABORATORY Specimen Anatomical Collection Method Collection Time Receive d Time (Source) Location / / Volume Laterality Blood specimen 12/06/2019 3:36 AM 020 3:45 (specimen) EDT AM EDT Resulting Agency Comment Spec In Lab Gretchen Yoon MD HEMATOLOGY ORDERABLES Performing Organization Address City/[facility]/[place] [address] (ABNORMAL) Differential, Automated (12/05/2019 10:52 PM EDT) [facility] Method Time Signature Neutrophils % 61.9 % [facility] LABORATORY Neutr Abs (ANC) 6.02 1.70 - [facility] 6.10 [facility] x10(3)/[facility] LABORATORY Lymphocytes % 22.4 % [facility] LABORATORY Lymphocytes Abs 2.2 0.9 - 3.2 [facility] x10(3)/[facility] LABORATORY Monocytes % 10.4 % [facility] LABORATORY Monocyte Abs 1.0 (H) 0.3 - 0.9 [facility] x10(3)/[facility] LABORATORY Eosinophils % 4.1 % [facility] LABORAT[facility] Eosinophils Abs 0.4 0.0 - 0.4 [facility] x10(3)/[facility] LABORATORY Basophils % 0.7 % [facility] LABORATORY Basophils Abs 0.1 0.0 - 0.1 [facility] x10(3)/[facility] LABORATORY Immature Gran % 0.50 [...] Abs 0.05 (H) 0.00 - 0.04 x10(3)/[facility] LABORATORY Specimen Anatomical Collection Method Collection Time Receive d Time (Source) Location / / Volume Laterality Blood specimen 12/05/2019 10:52 0 (specimen) PM EDT 10:59 PM EDT Resulting Agency Comment Spec In Lab Mandi Barrera MD HEMATOLOGY ORDERABLES Performing Organization Address City/State/ZIP [place] [address] (ABNORMAL) Hemogram (12/05/2019 10:52 PM EDT) Analysis Performed At [facility] logist Time Signature WBC 9.7 (H) 4.0 - 9.5 [facility] x10(3)/[facility] LABORATORY RBC 4.07 (L) 4.58 - [place] 5.54 [facility] x10(6)/[facility] LABORATORY Hemoglobin 11.9 (L) 13.7 - [place] 16.5 gm/dL [facility] Hematocrit 36.4 (L) 40.5 - [place] 48.5 % [facility] MCV 89.4 82.9 - [facility] OLIVIA 93.1 [facility] LABORATORY MCH 29.2 27.5 - [place] 32.1 pg [facility] MCHC 32.7 32.0 - [place] 35.7 gm/dL [facility] Platelets 167 145 - 357 [facility] x10(3)/[facility] LABORATORY RDWSD 47.7 (H) 36.0 - [place] 45.0 [facility] RDWCV 14.6 (H) 11.4 - [facility] 13.8 % [facility] MPV 12.1 7.6 - 12.9 [facility] LABORATORY nRBC % Auto 0.0 % [facility] LABORATORY nRBC Abs Auto 0.000 0.000 - [facility] [place] 0.000 [facility] x10(3)/[facility] LABORATORY Specimen Anatomical Collection Method Collection Time Receive d Time (Source) Location / / Volume Laterality Blood specimen 12/05/2019 10:52 0 (specimen) PM EDT 10:59 PM EDT Resulting Agency Comment Spec In Lab Mnadi Barrera MD HEMATOLOGY ORDERABLES Performing Organization Address City/State/ZIP [place] [address] Heparin (unfractionated) Level (12/05/2019 10:52 PM EDT) P athologist Signature Heparin UFH <0.04 IU/mL [facility] LABORATORY Comment: Guidelines for therapeutic unfractionate d [...] Organization Address City/State/[place] [address] MRI Brain wwo Contrast [...] Electronically signed by: ALBA Jenkins [facility] ([phone]), at 12/05/2019 10:02 PM Paris Lagos MD IMG MRI ORDERABLES (ABNORMAL) Hemogram (12/05/2019 1:00 PM EDT) Analysis Performed At Patho logist Time Signature WBC 8.7 4.0 - 9.5 [facility] x10(3)/[facility] LABORATORY RBC 4.17 (L) 4.58 - [facility] 5.54 [facility] x10(6)/[facility] LABORATORY Hemoglobin 12.4 (L) 13.7 - [facility] 16.5 gm/dL [facility] Hematocrit 37.0 (L) 40.5 - [facility] 48.5 % [facility] MCV 88.7 82.9 - [facility] 93.1 [facility] LABORATORY MCH 29.7 27.5 - [facility] 32.1 pg [facility] MCHC 33.5 32.0 - [facility] 35.7 gm/dL [facility] Platelets 173 145 - 357 [facility] x10(3)/[facility] LABORATORY RDWSD 47.3 (H) 36.0 - [facility] 45.0 [facility] LABORATORY RDWCV 14.6 (H) 11.4 - [facility] 13.8 % [facility] MPV 12.1 7.6 - 12.9 [facility] LABORATORY nRBC % Auto 0.0 % [facility] LABORATORY nRBC Abs Auto 0.000 0.000 - [facility] 0.000 [facility] x10(3)/[facility] LABORATORY Specimen Anatomical Collection Method Collection Time Receive d Time (Source) Location / / Volume Laterality Blood specimen 12/05/2019 1:00 PM 020 1:13 (specimen) EDT PM EDT Resulting Agency Comment Spec In Lab Gretchen Yoon MD HEMATOLOGY ORDERABLES Performing Organization Address City/State/ZIP [place] [address] EKG 12 Lead (12/05/2019 10:52 AM EDT) Component Value Ref Range Test Analysis Performed Pathologis t Method Time At Signature Ventricular rate 72 BPM MUSE SYSTEM Atrial Rate 72 BPM MUSE SYSTEM P-R Interval 138 ms MUSE SYSTEM QRS Duration 96 ms MUSE SYSTEM Q-T Interval 396 ms MUSE SYSTEM QTC Calculated 433 ms MUSE SYSTEM (Bezet) Calculated P Monument 65 degrees MUSE SYSTEM Calculated R Monument 13 degrees MUSE SYSTEM Calculated T Monument 0 degrees MUSE SYSTEM INTERPRETATION Sinus rhythm Occasional Premature ventricular complexe s MUSE SYSTEM Possible Inferior infarct (cited on or before 29-NOV-2019) Abnormal ECG When compared with ECG of 04-DEC-2019 10:43, Sinus rhythm has replaced Atrial fibrillation Vent. rate has decreased BY ??86 BPM Confirmed by MD Ceja Daniel ([id number]) on 12/05/2019 3:55:22 PM Specimen Anatomical Collection Method Collection Time Receive d Time (Source) Location / / Volume Laterality 12/05/2019 10:52 12/05/2019 3:55 AM EDT PM EDT Paris Lagos MD ECG ORDERABLES Performing Organization Address City/State/ZIP Code Phon e Number MUSE SYSTEM Duplex Study for DVT, Bilat legs (12/05/2019 7:00 AM EDT) Component Value Ref Test Analysis Performed At [facility] Range Method Time Signature VB Text Department: Vascular Surgery Lab VASCUBASE Report Patient: [id number] (ANGEL LUIS SALINAS) CPT: 01313 ICD10: I26.99 Referring Physician: GRETCHEN YOON ?? [...] 0.87 0.69 - 1.07 [facility] mmol/L [facility] Specimen Anatomical Collection Method Collection Time Receive d Time (Source) Location / / Volume Laterality Blood specimen 12/05/2019 4:18 AM 020 4:31 (specimen) EDT AM EDT Resulting Agency Comment Spec In Lab Gretchen Yoon MD CHEMISTRY ORDERABLES Performing Organization Address City/[facility]/[place] [address] (ABNORMAL) BMP w/fasting Glucose (12/05/2019 4:18 AM EDT) P athologist Signature Glucose 104 (H) 65 - 99 [facility] Fasting mg/dL [facility] Comment: ?Fasting* Glucose Interpretive C riteria [...] of Diabetes Mellitus, Position Statement from the [place] [employer]. ??Diabete s Care, Volume 33, [...] of body mass or the acutely ill. http://AdMob/[facility] AMERICA [facility] TULSAnkf eGFR 84 >=60 mL/min/1.73 m?? [facility] Comment: The eGFR was calculated using the CKD-EP I equation. As with all creatinine based estimates of kidney function, eGFR values calculated with the CKD-EPI equation are not accurate in patients wi th acute kidney failure, extremes of body mass or the acutely ill. http://AdMob/[facility] AMERICA [facility] TULSAnkf Specimen Anatomical Collection Method Collection Time Receive d Time (Source) Location / / Volume Laterality Blood specimen 12/05/2019 4:18 AM 020 4:31 (specimen) EDT AM EDT Resulting Agency Comment Spec In Lab Gretchen Yoon MD CHEMISTRY ORDERABLES Performing Organization Address City/State/ZIP [place] [address] (ABNORMAL) Hemogram (12/05/2019 4:18 AM EDT) Analysis Performed At Patho logist Time Signature WBC 8.6 4.0 - 9.5 [facility] x10(3)/[facility] LABORATORY RBC 4.28 (L) 4.58 - [place] 5.54 [facility] x10(6)/[facility] LABORATORY Hemoglobin 12.4 (L) 13.7 - [facility] 16.5 gm/dL [facility] Hematocrit 37.3 (L) 40.5 - [facility] 48.5 % [facility] MCV 87.1 82.9 - [facility] 93.1 [facility] LABORATORY MCH 29.0 27.5 - [facility] 32.1 pg [facility] MCHC 33.2 32.0 - [facility] 35.7 gm/dL [facility] Platelets 163 145 - 357 [facility] x10(3)/[facility] LABORATORY RDWSD 46.4 (H) 36.0 - [facility] 45.0 [facility] LABORATORY RDWCV 14.4 (H) 11.4 - [facility] 13.8 % [facility] MPV 11.7 7.6 - 12.9 [facility] LABORATORY nRBC % Auto 0.0 % [facility]OR[facility] nRBC Abs Auto 0.000 0.000 - [facility] 0.000 [facility] x10(3)/[facility] LABORATORY Specimen Anatomical Collection Method Collection Time Receive d Time (Source) Location / / Volume Laterality Blood specimen 12/05/2019 4:18 AM 020 4:31 (specimen) EDT AM EDT Resulting Agency Comment Spec In Lab Gretchen Yoon MD HEMATOLOGY ORDERABLES Performing Organization Address City/State/ZIP [place] [address] Cardiac for Morphology [...] For questions regarding this report, please contact [facility] number below. ? Narrative 12/04/2019 6:16 [...] from neck/greatest puja meter to back wall: G[place] 91, CAU 13: ??19 mm CORTES ??1, [...] from neck/greatest puja meter to back wall: [place] 91, CAU 13: 19 mm CORTES 1, [...] Time Signature WBC 8.9 4.0 - 9.5 [facility] OLIV[place] x10(3)/[facility] LABORATORY RBC 4.69 4.58 - [facility] OLIVIA 5.54 [facility] x10(6)/[facility] LABORATORY Hemoglobin 13.5 (L) 13.7 - [facility] 16.5 gm/dL [facility] Hematocrit 41.7 40.5 - [facility] OLIVIA 48.5 % [facility] MCV 88.9 82.9 - [facility] 93.1 fL [facility] MCH 28.8 27.5 - [place] 32.1 pg [facility] MCHC 32.4 32.0 - [facility] [place] 35.7 gm/dL [facility] Platelets 196 145 - 357 [facility] x10(3)/[facility] LABORATORY RDWSD 46.7 (H) 36.0 - [place] 45.0 [facility] LABORATORY RDWCV 14.5 (H) 11.4 - [place] 13.8 % [facility] MPV 12.1 7.6 - 12.9 [place] MON[place] [facility] LABORATORY nRBC % Auto 0.0 % [facility]ORATORY nRBC Abs Auto 0.000 0.000 - [place] 0.000 [facility] x10(3)/[facility] LABORATORY Specimen Anatomical Collection Method Collection Time Receive d Time (Source) Location / / Volume Laterality Blood specimen 12/04/2019 12:55 0 1:06 (specimen) PM EDT PM EDT Resulting Agency Comment Spec In Lab Gretchen Yoon MD HEMATOLOGY ORDERABLES Performing Organization Address City/[facility]/[place] [address] EKG 12 Lead (12/04/2019 10:43 AM EDT) Component Value Ref Range Test Analysis Performed Pathologis t Method Time At Signature Ventricular rate 158 BPM MUSE SYSTEM Atrial Rate 102 BPM MUSE SYSTEM QRS Duration 92 ms MUSE SYSTEM Q-T Interval 294 ms MUSE SYSTEM QTC Calculated 476 ms MUSE SYSTEM (Bezet) Calculated R Monument 17 degrees MUSE SYSTEM Calculated T Monument 90 degrees MUSE SYSTEM INTERPRETATION Atrial fibrillation with rapid ventricular response MUSE SYSTEM Possible Inferior infarct (cited on or before 29-NOV-2019) Abnormal ECG When compared with ECG of 30-NOV-2019 21:07, Atrial fibrillation has replaced Sinus rhythm Vent. rate has increased BY ??65 BPM Confirmed by MD Ceja Daniel ([id number]) on 12/05/2019 8:59:44 AM Specimen Anatomical Collection Method Collection Time Receive d Time (Source) Location / / Volume Laterality 12/04/2019 10:43 12/05/2019 8:59 AM EDT AM EDT Gretchen Yoon MD ECG ORDERABLES Performing Organization Address City/State/ZIP Code Phon e Number MUSE SYSTEM (ABNORMAL) Magnesium (12/04/2019 4:28 AM EDT) P athologist Signature Magnesium 1.17 (H) 0.69 - 1.07 [facility] mmol/L [facility] Specimen Anatomical Collection Method Collection Time Receive d Time (Source) Location / / Volume Laterality Blood specimen 12/04/2019 4:28 AM 020 4:40 (specimen) EDT AM EDT Resulting Agency Comment Spec In Lab Gretchen Yoon MD CHEMISTRY ORDERABLES Performing Organization Address City/State/ZIP [place] [address] (ABNORMAL) BMP w/fasting Glucose (12/04/2019 4:28 AM EDT) athologist Signature Glucose 108 (H) 65 - 99 [facility] Fasting mg/dL [facility] Comment: ?Fasting* Glucose Interpretive C riteria [...] of Diabetes Mellitus, Position Statement from the [place] [employer]. ??Diabete s Care, Volume 33, [...] of body mass or the acutely ill. http://AdMob/[facility] AMERICA [facility] TULSAnk eGFR 98 >=60 mL/min/1.73 m?? [facility] Comment: The eGFR was calculated using the CKD-EP I equation. As with all creatinine based estimates of kidney function, eGFR values calculated with the CKD-EPI equation are not accurate in patients wi th acute kidney failure, extremes of body mass or the acutely ill. http://AdMob/[facility] TULSAnkf Specimen Anatomical Collection Method Collection Time Receive d Time (Source) Location / / Volume Laterality Blood specimen 12/04/2019 4:28 AM 020 4:40 (specimen) EDT AM EDT Resulting Agency Comment Spec In Lab Gretchen Yoon MD CHEMISTRY ORDERABLES Performing Organization Address City/State/[place] [address] (ABNORMAL) Hemogram (12/04/2019 4:28 AM EDT) Analysis Performed At Patho logist Time Signature WBC 7.8 4.0 - 9.5 [facility] x10(3)/[facility] LABORATORY RBC 4.10 (L) 4.58 - [facility] 5.54 [facility] x10(6)/[facility] LABORATORY Hemoglobin 12.0 (L) 13.7 - [facility] 16.5 gm/dL [facility] Hematocrit 36.5 (L) 40.5 - [facility] 48.5 % [facility] MCV 89.0 82.9 - [facility] 93.1 fL [facility] MCH 29.3 27.5 - [place] 32.1 pg [facility] MCHC 32.9 32.0 - [place] 35.7 gm/dL [facility] Platelets 151 145 - 357 [place] [facility] x10(3)/[facility] LABORATORY RDWSD 46.9 (H) 36.0 - [place] 45.0 [facility] LABORATORY RDWCV 14.4 (H) 11.4 - [place] 13.8 % [facility] MPV 12.2 7.6 - 12.9 [place] fL [facility] nRBC % Auto 0.0 % [facility] nRBC Abs Auto 0.000 0.000 - [place] 0.000 [facility] x10(3)/[facility] LABORATORY Specimen Anatomical Collection Method Collection Time Receive d Time (Source) Location / / Volume Laterality Blood specimen 12/04/2019 4:28 AM 020 4:40 (specimen) EDT AM EDT Resulting Agency Comment Spec In Lab Gretchen Yoon MD HEMATOLOGY ORDERABLES Performing Organization Address City/[facility]/ZIP Code Phon e Number [address] Potassium (12/03/2019 7:55 PM EDT) athologist Signature Potassium 3.9 3.5 - 5.0 [facility]L [facility] Comment: Please note: ??Patients with WBC [...] Organization Address City/State/ZIP Code Phon e Number [address] Potassium (12/03/2019 1:57 PM EDT) athologist Signature Potassium 3.7 3.5 - 5.0 MELINA OLIVIA mmol/L [facility] Comment: Please note: ??Patients with WBC [...] Organization Address City/State/Z[place] [address] (ABNORMAL) Hemogram (12/03/2019 1:57 PM EDT) Analysis Performed At Patho logist Time Signature WBC 8.8 4.0 - 9.5 [facility]IVIA x10(3)/[facility] LABORATORY RBC 4.27 (L) 4.58 - MELINA OLIVIA 5.54 [facility] x10(6)/[facility] LABORATORY Hemoglobin 12.5 (L) 13.7 - MELINA OLIVIA 16.5 gm/dL [facility] Hematocrit 37.5 (L) 40.5 - MELINA OLIVIA 48.5 % [facility] MCV 87.8 82.9 - MELINA OLIVIA 93.1 [facility] LABORATORY MCH 29.3 27.5 - MELINA OLIVIA 32.1 pg [facility] MCHC 33.3 32.0 - MELINA OLIVIA 35.7 gm/dL [facility] Platelets 158 145 - 357 [employer] x10(3)/[facility] LABORATORY RDWSD 46.9 (H) 36.0 - MELINA OLIVIA 45.0 [facility] LABORATORY RDWCV 14.5 (H) 11.4 - MELINA OLIVIA 13.8 % [facility] MPV 12.2 7.6 - 12.9 MELINA OLIVIA [facility] LABORATORY nRBC % Auto 0.0 % [facility] nRBC Abs Auto 0.000 0.000 - MELINA OLIVIA 0.000 [facility] x10(3)/[facility] LABORATORY Specimen Anatomical Collection Method Collection Time Receive d Time (Source) Location / / Volume Laterality Blood specimen 12/03/2019 1:57 PM 020 2:21 (specimen) EDT PM EDT Resulting Agency Comment Spec In Lab Gretchen Yoon MD HEMATOLOGY ORDERABLES Performing Organization Address City/State/ZIP Code Phon e Number [address] Magnesium (12/03/2019 4:02 AM EDT) athologist Signature Magnesium 0.79 0.69 - 1.07 [facility] mmol/L [facility] Specimen Anatomical Collection Method Collection Time Receive d Time (Source) Location / / Volume Laterality Blood specimen 12/03/2019 4:02 AM 020 4:16 (specimen) EDT AM EDT Resulting Agency Comment Spec In Lab Gretchen Yoon MD CHEMISTRY ORDERABLES Performing Organization Address City/State/[place] [address] (ABNORMAL) BMP w/fasting Glucose (12/03/2019 4:02 AM EDT) P athologist Signature Glucose 100 (H) 65 - 99 [facility]/dL [facility] Comment: ?Fasting* Glucose Interpretive C riteria [...] of Diabetes Mellitus, Position Statement from the [place] [employer]. ??Diabete s Care, Volume 33, [...] of body mass or the acutely ill. http://AdMob/[facility] AMERICA – TULSAnkf eGFR 92 >=60 mL/min/1.73 m?? [facility] Comment: The eGFR was calculated using the CKD-EP I equation. As with all creatinine based estimates of kidney function, eGFR values calculated with the CKD-EPI equation are not accurate in patients wi th acute kidney failure, extremes of body mass or the acutely ill. [email or web address] Specimen Anatomical Collection Method Collection Time Receive d Time (Source) Location / / Volume Laterality Blood specimen 12/03/2019 4:02 AM 020 4:16 (specimen) EDT AM EDT Resulting Agency Comment Spec In Lab Gretchen Yoon MD CHEMISTRY ORDERABLES Performing Organization Address City/State/ZIP [place] [address] (ABNORMAL) Hemogram (12/03/2019 4:02 AM EDT) Analysis Performed At Patho logist Time Signature WBC 9.1 4.0 - 9.5 [facility] x10(3)/[facility] LABORATORY RBC 4.01 (L) 4.58 - [facility] 5.54 [facility] x10(6)/[facility] LABORATORY Hemoglobin 11.8 (L) 13.7 - [facility] 16.5 gm/dL [facility] Hematocrit 35.6 (L) 40.5 - [facility] 48.5 % [facility] MCV 88.8 82.9 - [facility] 93.1 [facility] LABORATORY MCH 29.4 27.5 - [facility] 32.1 pg [facility] MCHC 33.1 32.0 - [facility] 35.7 gm/dL [facility] Platelets 130 (L) 145 - 357 [facility] x10(3)/[facility] LABORATORY RDWSD 46.6 (H) 36.0 - [facility] 45.0 [facility] LABORATORY RDWCV 14.4 (H) 11.4 - [facility] 13.8 % [facility] MPV 12.4 7.6 - 12.9 [facility] LABORATORY nRBC % Auto 0.0 % [facility]ORY nRBC Abs Auto 0.000 0.000 - [facility] 0.000 [facility] x10(3)/[facility] LABORATORY Specimen Anatomical Collection Method Collection Time Receive d Time (Source) Location / / Volume Laterality Blood specimen 12/03/2019 4:02 AM 020 4:16 (specimen) EDT AM EDT Resulting Agency Comment Spec In Lab Gretchen Yoon MD HEMATOLOGY ORDERABLES Performing Organization Address City/State/ZIP [place] [address] XR Chest One View [...] Signature WBC 10.6 (H) 4.0 - 9.5 [facility] x10(3)/[facility] LABORATORY RBC 4.00 (L) 4.58 - [facility] 5.54 [facility] x10(6)/[facility] LABORATORY Hemoglobin 11.9 (L) 13.7 - [facility] 16.5 gm/dL [facility] Hematocrit 35.7 (L) 40.5 - [facility] 48.5 % [facility] MCV 89.3 82.9 - [facility] 93.1 [facility] LABORATORY MCH 29.8 27.5 - [facility] 32.1 pg [facility] MCHC 33.3 32.0 - [facility] 35.7 gm/dL [facility] Platelets 120 (L) 145 - 357 [facility] x10(3)/[facility] LABORATORY RDWSD 47.5 (H) 36.0 - [facility] 45.0 [facility] LABORATORY RDWCV 14.6 (H) 11.4 - [facility] 13.8 % [facility] MPV 12.0 7.6 - 12.9 [facility] LABORATORY nRBC % Auto 0.0 % [facility] nRBC Abs Auto 0.000 0.000 - [facility] 0.000 [facility] x10(3)/[facility] LABORATORY Specimen Anatomical Collection Method Collection Time Receive d Time (Source) Location / / Volume Laterality Blood specimen 12/02/2019 12:50 0 1:22 (specimen) PM EDT PM EDT Resulting Agency Comment Spec In Lab Gretchen Yoon MD HEMATOLOGY ORDERABLES Performing Organization Address City/State/ZIP [place] [address] Blue Tube HOLD (12/02/2019 4:55 AM EDT) P athologist Signature Blue Hold Sample in [facility] lab. [facility] Specimen Anatomical Collection Method Collection Time Receive d Time (Source) Location / / Volume Laterality Blood specimen Venous Draw / 12/02/2019 4:55 AM 2019 5:03 (specimen) Unknown EDT AM EDT Darrell Glasgow MD HEMATOLOGY ORDERABLES Performing Organization Address City/State/ZIP Code Phon e Number [address] Magnesium (12/02/2019 4:55 AM EDT) athologist Signature Magnesium 0.85 0.69 - 1.07 [facility] mmol/L [facility] Specimen Anatomical Collection Method Collection Time Receive d Time (Source) Location / / Volume Laterality Blood specimen 12/02/2019 4:55 AM 020 5:02 (specimen) EDT AM EDT Resulting Agency Comment Spec In Lab Gretchen Yoon MD CHEMISTRY ORDERABLES Performing Organization Address City/[facility]/ZIP [place] [address] (ABNORMAL) BMP w/fasting Glucose (12/02/2019 4:55 AM EDT) athologist Signature Glucose 114 (H) 65 - 99 [facility] Fasting mg/dL [facility] Comment: ?Fasting* Glucose Interpretive C riteria [...] of Diabetes Mellitus, Position Statement from the [place] [employer]. ??Diabete s Care, Volume 33, [...] of body mass or the acutely ill. http://AdMob/[facility] TULSAnkf eGFR 94 >=60 mL/min/1.73 m?? [facility] Comment: The eGFR was calculated using the CKD-EP I equation. As with all creatinine based estimates of kidney function, eGFR values calculated with the CKD-EPI equation are not accurate in patients wi th acute kidney failure, extremes of body mass or the acutely ill. http://AdMob/[facility] AMERICA [facility] TULSAnkf Specimen Anatomical Collection Method Collection Time Receive d Time (Source) Location / / Volume Laterality Blood specimen 12/02/2019 4:55 AM 020 5:02 (specimen) EDT AM EDT Resulting Agency Comment Spec In Lab Gretchen Yoon MD CHEMISTRY ORDERABLES Performing Organization Address City/State/ZIP [place] [address] (ABNORMAL) Hemogram (12/02/2019 4:55 AM EDT) Analysis Performed At Patho logist Time Signature WBC 9.3 4.0 - 9.5 [facility] x10(3)/[facility] LABORATORY RBC 3.71 (L) 4.58 - MELINA OLIVIA 5.54 [facility] x10(6)/[facility] LABORATORY Hemoglobin 10.8 (L) 13.7 - [facility] 16.5 gm/dL [facility] Hematocrit 33.1 (L) 40.5 - [facility] 48.5 % [facility] MCV 89.2 82.9 - [facility] 93.1 [facility] LABORATORY MCH 29.1 27.5 - [facility] 32.1 pg [facility] MCHC 32.6 32.0 - [facility] 35.7 gm/dL [facility] Platelets 93 (L) 145 - 357 [facility] x10(3)/[facility] LABORATORY RDWSD 47.1 (H) 36.0 - [facility] 45.0 [facility] LABORATORY RDWCV 14.6 (H) 11.4 - [facility] 13.8 % [facility] MPV 11.7 7.6 - 12.9 [facility] LABORATORY nRBC % Auto 0.0 % [facility]ORATORY nRBC Abs Auto 0.000 0.000 - [facility] 0.000 [facility] x10(3)/[facility] LABORATORY Specimen Anatomical Collection Method Collection Time Receive d Time (Source) Location / / Volume Laterality Blood specimen 12/02/2019 4:55 AM 020 5:02 (specimen) EDT AM EDT Resulting Agency Comment Spec In Lab Gretchen Yoon MD HEMATOLOGY ORDERABLES Performing Organization Address City/State/Z[place] [address] Transfuse 1 unit platelets, [...] For questions regarding this report, please contact [facility] number below. ? Narrative 12/01/2019 8:02 [...] For questions regarding this report, please contact [facility] number below. Gretchen Yoon MD IMG [...] Organization Address City/State/ZIP Code Phon e Number [place] [id number] Duplex for DVT, Arm, Unilat (12/01/2019 5:08 PM EDT) Component Value Ref Test Analysis Performed At Patholo gist Range Method Time Signature VB Text Department: Vascular Surgery Lab VASCUBASE Report Patient: [id number] (ANGEL LUIS SALINAS) CPT: 56744 ICD10: R60.0 Referring Physician: GRETCHEN YOON ?? [...] For questions regarding this report, please contact [facility] number below. ? Narrative 12/01/2019 3:53 PM EDT EXAMINATION: CT HEAD WO CONTRAST (GENERIC) CLINICAL HISTORY: Headache, intracranial hemorrhage suspected Serial CT scan: please assess for propag ation of known ICH noted on prior Head CT/imaging. TECHNIQUE: CT head performed without intravenous co ntrast administration. COMPARISON: Head CT 11/30/2019. CT angiogram of the [place] 11/01. FINDINGS: Ventricles are normal in size. Basal cis terns are patent. Unchanged hyperdense 2.3 x 0.7 x 0.6 cm tubular hemorrhage projecting along the course of the left optic tract ([facility] image 16), consistent with intraparenchymal [...] Head CT 11/30/2019. CT angiogram of the [place] 11/01. FINDINGS: Ventricles are normal [...] Scan, Peripheral Blood (12/01/2019 12:51 PM EDT) [facility] Method Time Signature Plat Estimate Decreased [facility] RBC Morphology Normal [facility] Giant Less than 1 /HPF [facility] Platelets [facility] Specimen Anatomical Collection Method Collection Time Receive d Time (Source) Location / / Volume Laterality Blood specimen 12/01/2019 12:51 0 1:05 (specimen) PM EDT PM EDT Resulting Agency Comment Spec In Lab Riki Stevens MD HEMATOLOGY ORDERABLES Performing Organization Address City/State/[place] [address] (ABNORMAL) Differential, Automated (12/01/2019 12:51 PM EDT) [facility] Method Time Signature Neutrophils % 74.9 % [facility] Neutr Abs (ANC) 6.34 (H) 1.70 - [facility] 6.10 [facility] x10(3)/[facility] LABORATORY Lymphocytes % 11.4 % [facility] Lymphocytes Abs 1.0 0.9 - 3.2 [facility] x10(3)/[facility] LABORATORY Monocytes % 12.4 % [facility] Monocyte Abs 1.0 (H) 0.3 - 0.9 [facility] x10(3)/[facility] LABORATORY Eosinophils % 0.4 % [facility] Eosinophils Abs 0.0 0.0 - 0.4 [facility] x10(3)/[facility] LABORATORY Basophils % 0.4 % [facility] Basophils Abs 0.0 0.0 - 0.1 [facility] x10(3)/[facility] LABORATORY Immature Gran % 0.50 % [...] Pita Gran Abs 0.04 0.00 - 0.04 x10(3)/[facility]3] LABORATORY Specimen Anatomical Collection Method Collection Time Receive d Time (Source) Location / / Volume Laterality Blood specimen 12/01/2019 12:51 0 1:05 (specimen) PM EDT PM EDT Resulting Agency Comment Spec In Lab Riki Stevens MD HEMATOLOGY ORDERABLES Performing Organization Address City/State/ZIP [place] [address] (ABNORMAL) Hemogram (12/01/2019 12:51 PM EDT) Analysis Performed At Patho logist Time Signature WBC 8.4 4.0 - 9.5 [facility] x10(3)/[facility] LABORATORY RBC 3.69 (L) 4.58 - [facility] 5.54 [facility] x10(6)/[facility] LABORATORY Hemoglobin 10.8 (L) 13.7 - [facility] 16.5 gm/dL [facility] Hematocrit 32.4 (L) 40.5 - [facility] 48.5 % [facility] MCV 87.8 82.9 - [facility] 93.1 [facility] LABORATORY MCH 29.3 27.5 - [facility] OLIVIA 32.1 pg [facility] MCHC 33.3 32.0 - [facility] 35.7 gm/dL [facility] Platelets 72 (L) 145 - 357 [facility] x10(3)/[facility] LABORATORY RDWSD 47.2 (H) 36.0 - [facility] 45.0 [facility] LABORATORY RDWCV 14.6 (H) 11.4 - [facility] 13.8 % [facility] MPV 12.2 7.6 - 12.9 [facility] LABORATORY nRBC % Auto 0.0 % [facility] nRBC Abs Auto 0.000 0.000 - [facility] 0.000 [facility] x10(3)/[facility] LABORATORY Specimen Anatomical Collection Method Collection Time Receive d Time (Source) Location / / Volume Laterality Blood specimen 12/01/2019 12:51 0 1:05 (specimen) PM EDT PM EDT Resulting Agency Comment Spec In Lab Riki Stevens MD HEMATOLOGY ORDERABLES Performing Organization Address City/[facility]/ZIP Code Phon e Number [address] (ABNORMAL) Coox2 (12/01/2019 11:42 AM EDT) Analysis Performed At Patho logist Time Signature pO2 Coox 30 mmHg [facility] Hgb Blood Gas 11.6 (L) 13.7 - [facility] 16.5 gm/dL [facility] O2HB Coox 60.8 % [facility] COHB Coox 0.6 % [facility] Comment: Nonsmokers: 0.5-1.5% COHB Smokers: Variable, but usually less than 10% Toxic: 20-30% COHB Lethal: Greater than 60% COHB METHB Coox 0.6 <=1.5 % [facility] Source Coox Mixed Venous [facility] Specimen Anatomical Collection Method Collection Time Receive d Time (Source) Location / / Volume Laterality Blood specimen 12/01/2019 11:42 0 (specimen) AM EDT 11:42 AM EDT Gretchen Yoon MD CHEMISTRY ORDERABLES Performing Organization Address City/State/[place] [address] Sedimentation rate (12/01/2019 3:55 AM EDT) P athologist Signature Sed Rate 25 3 - 46 [facility] mm/hr [facility] Comment: Effective June 11, 2019 new [...] Winn MD HEMATOLOGY ORDERABLES Performing Organization Address City/[facility]/[place] [address] (ABNORMAL) CRP, acute inflammation [...] Winn MD CHEMISTRY ORDERABLES Performing Organization Address City/[facility]/[place] [address] ABORH Recheck Status (12/01/2019 3:55 AM EDT) [facility] Method Time Signature ABORH Recheck Order Placed [facility] LABORATORY ABORH Type Complete [facility] LABORATORY Specimen Anatomical Collection Method Collection Time Receive d Time (Source) Location / / Volume Laterality Blood specimen 12/01/2019 3:55 AM 020 4:15 (specimen) EDT AM EDT Resulting Agency Comment Spec In Lab Lewis Gee MD BLOOD BANK ORDERABLES Performing Organization Address City/[facility]/[place] [address] Antibody screen (12/01/2019 3:55 AM EDT) [facility] Method Time Signature Ab Screen Negative [facility] LABORATORY Expires at 12/04/2019 [facility] [id number] on: [facility] Specimen Anatomical Collection Method Collection Time Receive d Time (Source) Location / / Volume Laterality Blood specimen 12/01/2019 3:55 AM 020 4:15 (specimen) EDT AM EDT Resulting Agency Comment Spec In Lab Lewis Gee MD BLOOD BANK ORDERABLES Performing Organization Address City/State/[place] [address] ABO/Rh Typing (12/01/2019 3:55 AM EDT) athologist Signature ABORh Type AB Pos [facility] Specimen Anatomical Collection Method Collection Time Receive d Time (Source) Location / / Volume Laterality Blood specimen 12/01/2019 3:55 AM 020 4:15 (specimen) EDT AM EDT Resulting Agency Comment Spec In Lab Lewis Gee MD BLOOD BANK ORDERABLES Performing Organization Address City/[facility]/[place] [address] (ABNORMAL) Troponin (12/01/2019 3:55 AM EDT) athologist Signature Troponin-T 4.35 (H) 0.00 - [facility] 0.00 ng/mL [facility] Comment: result rechecked-slw The 99th percentile for Troponin T is le ss than 0.01 ng/mL, any detectable cTnT concentration using this assay should be considered elevated. According to the third universal definit ion of myocardial infarction the following criteria with a clinical prese ntation consistent with acute myocardial ischemia meets the diagnosis for a myocardial infarction ([place]). Detection of a rise and/or fall of [...] additional sample may be indicated. Reference: Third [place] Definition of Myocardial Infarction. Journal of the [place] [employer] 2012;60:1581-98 Specimen Anatomical Collection Method Collection Time Receive d Time (Source) Location / / Volume Laterality Blood specimen 12/01/2019 3:55 AM 020 4:00 (specimen) EDT AM EDT Resulting Agency Comment Spec In Lab Gretchen Yoon MD CHEMISTRY ORDERABLES Performing Organization Address City/[facility]/ZIP Code Phon e Number [address] Magnesium (12/01/2019 3:55 AM EDT) P athologist Signature Magnesium 0.96 0.69 - 1.07 [facility] mmol/L [facility] Specimen Anatomical Collection Method Collection Time Receive d Time (Source) Location / / Volume Laterality Blood specimen 12/01/2019 3:55 AM 020 4:00 (specimen) EDT AM EDT Resulting Agency Comment Spec In Lab Gretchen Yoon MD CHEMISTRY ORDERABLES Performing Organization Address City/State/[place] [address] (ABNORMAL) BMP w/fasting Glucose (12/01/2019 3:55 AM EDT) P athologist Signature Glucose 148 (H) 65 - 99 [facility] Fasting mg/dL [facility] Comment: ?Fasting* Glucose Interpretive C riteria [...] of Diabetes Mellitus, Position Statement from the [place] [employer]. ??Diabete s Care, Volume 33, [...] of body mass or the acutely ill. http://AdMob/[facility] AMERICA – TULSAnkf eGFR 91 >=60 mL/min/1.73 m?? [facility] Comment: The eGFR was calculated using the CKD-EP I equation. As with all creatinine based estimates of kidney function, eGFR values calculated with the CKD-EPI equation are not accurate in patients wi th acute kidney failure, extremes of body mass or the acutely ill. http://AdMob/DHnkf Specimen Anatomical Collection Method Collection Time Receive d Time (Source) Location / / Volume Laterality Blood specimen 12/01/2019 3:55 AM 020 4:00 (specimen) EDT AM EDT Resulting Agency Comment Spec In Lab Gretchen Yoon MD CHEMISTRY ORDERABLES Performing Organization Address City/State/ZIP Code Phon [place] [address] (ABNORMAL) Hemogram (12/01/2019 3:55 AM EDT) [facility] Time Signature WBC 11.0 (H) 4.0 - 9.5 [facility] x10(3)/[facility] LABORATORY RBC 3.46 (L) 4.58 - [facility] 5.54 [facility] x10(6)/[facility] LABORATORY Hemoglobin 10.2 (L) 13.7 - [facility] 16.5 gm/dL [facility] Hematocrit 31.2 (L) 40.5 - [facility] 48.5 % [facility] MCV 90.2 82.9 - [facility] 93.1 [facility] LABORATORY MCH 29.5 27.5 - [facility] 32.1 pg [facility] MCHC 32.7 32.0 - [facility] 35.7 gm/dL [facility] Platelets 98 (L) 145 - 357 [facility] x10(3)/[facility] LABORATORY RDWSD 47.9 (H) 36.0 - [facility] 45.0 [facility] LABORATORY RDWCV 14.6 (H) 11.4 - [facility] 13.8 % [facility] MPV 12.3 7.6 - 12.9 [facility] LABORATORY nRBC % Auto 0.0 % [facility] nRBC Abs Auto 0.000 0.000 - [facility] 0.000 [facility] x10(3)/[facility] LABORATORY Specimen Anatomical Collection Method Collection Time Receive d Time (Source) Location / / Volume Laterality Blood specimen 12/01/2019 3:55 AM 020 4:00 (specimen) EDT AM EDT Resulting Agency Comment Spec In Lab Gretchen Yoon MD HEMATOLOGY ORDERABLES Performing Organization Address City/State/ZIP [place] [address] (ABNORMAL) BLOOD GAS 2 ARTERIAL (11/30/2019 10:39 PM EDT) Analysis Performed At [facility] Time Signature pH Art 7.45 7.35 - [facility] 7.45 [facility] pCO2 Art 23 (L) 35 - 45 [facility] LABORATORY pO2 Art 76 (L) 85 - 104 [facility] LABORATORY HCO3 Art 15.3 (L) 20.0 - [facility] 26.0 [facility] mmol/L [facility] LABORATORY BE Art -8.7 (L) -3.0 - 3.0 [facility] mmol/L [facility] Hgb Blood Gas 11.7 (L) 13.7 - [facility] 16.5 gm/dL [facility] O2HB Art 94.2 94.0 - [facility] 97.0 % [facility] COHB Art 0.5 % [facility] Comment: Nonsmokers: 0.5-1.5% COHB Smokers: Variable, but usually less than 10% Toxic: 20-30% COHB Lethal: Greater than 60% COHB METHB Art 0.6 <=1.5 % [facility]ATORY Na Whole Blood 133 (L) 135 - 145 mmol/L [facility] LAB[facility]ORY K Whole Blood 3.8 [...] [facility] FIO2 Art 100 % [facility] PF Ratio Art 76 [facility] LABORATORY Specimen Anatomical Collection Method Collection Time Receive d Time (Source) Location / / Volume Laterality Blood specimen 11/30/2019 10:39 0 (specimen) PM EDT 10:39 PM EDT Gretchen Yoon MD CHEMISTRY ORDERABLES Performing Organization Address City/[facility]/[place] [address] EKG 12 Lead (11/30/2019 [...] (Bezet) Calculated P 12 degrees MUSE SYSTEM [place] Calculated R 19 degrees MUSE SYSTEM [place] Calculated T -47 degrees MUSE SYSTEM [place] INTERPRETATION Sinus rhythm with Premature supraventricular complexes [...] Yoon MD ECG ORDERABLES Performing Organization Address City/[facility]/ZIP Code Phon e Number MUSE SYSTEM (ABNORMAL) Urinalysis Microscopic Exam (11/30/2019 8:40 PM EDT) P athologist Signature RBC UA 27 (H) 0 - 3 /HPF [facility] WBC UA 4 (H) 0 - 3 /HPF [facility] Hyaline Cast 3 (H) 0 - 2 /LPF [facility] Specimen (Source) Anatomical Collection Method Collection Time Re ceived Time Location / / Volume Laterality Urine specimen 11/30/2019 8:40 11/30/2019 obtained via PM EDT 10:51 PM EDT indwelling urinary catheter (specimen) Resulting Agency Comment Spec In Lab Rossy Winn MD URINE ORDERABLES Performing Organization Address City/[facility]/[place] [address] (ABNORMAL) Urinalysis with reflex Culture (11/30/2019 8:40 PM EDT) Patholo gist Method Time Signature Glucose UA Negative Negative [facility]dL [facility] Protein UA Negative Negative [facility] mg/dL [facility] Bilirubin UA Negative Negative [facility] mg/dL [facility] Comment: Clinical correlation required for positi [...] CARE [facility]PITAL LAB[facility]ORY Nitrite UA Negative Negative [facility] Leukocytes UA Trace (A) Negative [facility] LABORATORY Appearance UA Clear Clear [facility] Spec Union UA 1.026 1.006 - 1.030 [facility] Color UA Yellow Yellow [facility] Culture Reflexed No [facility] Specimen (Source) Anatomical Collection Method Collection Time Re ceived Time Location / / Volume Laterality Urine specimen 11/30/2019 8:40 11/30/2019 obtained via PM EDT 10:51 PM EDT indwelling urinary catheter (specimen) Resulting Agency Comment Spec In Lab Gretchen Yoon MD URINE ORDERABLES Performing Organization Address City/State/ZIP [place] [address] (ABNORMAL) pro-Brain Natriuretic Peptide (11/30/2019 8:30 PM EDT) P athologist Signature ProBNP 2,802 (H) <=125 [facility] Specimen Anatomical Collection Method Collection Time Receive d Time (Source) Location / / Volume Laterality Blood specimen Venous Draw / 11/30/2019 8:30 PM 2019 8:36 (specimen) Unknown EDT PM EDT Resulting Agency Comment Spec In Lab Rossy Winn MD CHEMISTRY ORDERABLES Performing Organization Address City/[facility]/ZIP Code [place] [address] (ABNORMAL) Troponin (11/30/2019 8:30 PM EDT) athologist Signature Troponin-T 5.04 (H) 0.00 - MELINA MONAE 0.00 ng/mL [facility] Comment: The 99th percentile for Troponin T is le ss than 0.01 ng/mL, any detectable cTnT concentration using this assay should be considered elevated. According to the third universal definit ion of myocardial infarction the following criteria with a clinical prese ntation consistent with acute myocardial ischemia meets the diagnosis for a myocardial infarction ([place]). Detection of a rise and/or fall of [...] additional sample may be indicated. Reference: Third [place] Definition of Myocardial Infarction. Journal of the [place] [employer] 2012;60:1581-98 Specimen Anatomical Collection Method Collection Time Receive d Time (Source) Location / / Volume Laterality Blood specimen Venous Draw / 11/30/2019 8:30 PM 2019 8:36 (specimen) Unknown EDT PM EDT Resulting Agency Comment Spec In Lab Rossy Winn MD CHEMISTRY ORDERABLES Performing Organization Address City/[facility]/ZIP Code [place] [address] Magnesium (11/30/2019 8:30 PM EDT) athologist Signature Magnesium 0.79 0.69 - 1.07 MELINA OLIVIA mmol/L [facility] Specimen Anatomical Collection Method Collection Time Receive d Time (Source) Location / / Volume Laterality Blood specimen 11/30/2019 8:30 PM 020 8:35 (specimen) EDT PM EDT Resulting Agency Comment Spec In Lab Gretchen Yoon MD CHEMISTRY ORDERABLES Performing Organization Address City/State/ZIP [place] [address] (ABNORMAL) Basic Metabolic Panel (non-fasting) (11/30/2019 8:30 PM EDT) athologist Signature Glucose Lvl 132 65 - 199 [facility] mg/dL [facility] Comment: Diabetes: >=200 mg/dL plus symp [...] of body mass or the acutely ill. http://[email or web address] eGFR 93 >=60 mL/min/1.73 m?? [facility] Comment: The eGFR was calculated using the CKD-EP I equation. As with all creatinine based estimates of kidney function, eGFR values calculated with the CKD-EPI equation are not accurate in patients wi th acute kidney failure, extremes of body mass or the acutely ill. http://AdMob/DHMCnkf Specimen Anatomical Collection Method Collection Time Receive d Time (Source) Location / / Volume Laterality Blood specimen 11/30/2019 8:30 PM 020 8:35 (specimen) EDT PM EDT Resulting Agency Comment Spec In Lab Gretchen Yoon MD CHEMISTRY ORDERABLES Performing Organization Address City/[facility] [place] [address] Blood culture (11/30/2019 8:30 PM EDT) Patholo gist Method Time Signature Blood Culture No growth MELINA [place]ITT[place]OCK at 5 days. [facility] Specimen Anatomical Collection Method Collection Time Receive d Time (Source) Location / / Volume Laterality Blood specimen 11/30/2019 8:30 PM 020 9:40 (specimen) EDT PM EDT Comment: L HAND Resulting Agency Comment Spec In Lab Gretchen Yoon MD MICROBIOLOGY - BLOOD ORDERAB LES Performing Organization Address City/[facility]/[place] [address] Blood culture (11/30/2019 8:30 PM EDT) Patholo gist Method Time Signature Blood Culture No growth MELINA WHITTENCOCK at 5 days. [facility] Specimen Anatomical Collection Method Collection Time Receive d Time (Source) Location / / Volume Laterality Blood specimen 11/30/2019 8:30 PM 020 9:40 (specimen) EDT PM EDT Comment: R HAND Resulting Agency Comment Spec In Lab Gretchen Yoon MD MICROBIOLOGY - BLOOD ORDERAB LES Performing Organization Address [facility] [place] [address] XR Chest One View [...] Electronically signed by: ALBA Watson [facility] ([phone]), at 11/30/2019 8:32 PM Narrative 11/30/2019 8:32 [...] Art 7.45 7.35 - [facility] 7.45 [facility] pCO2 Art 27 (L) 35 - 45 [facility] mmHg [facility] pO2 Art 68 (L) 85 - 104 [facility] LABORATORY HCO3 Art 18.2 (L) 20.0 - [facility] 26.0 [facility] mmol/[facility] LABORATORY BE Art -5.9 (L) -3.0 - 3.0 [facility] mmol/L [facility] Hgb Blood Gas 12.4 (L) 13.7 - [facility] 16.5 gm/dL [facility] O2HB Art 93.1 (L) 94.0 - [facility] 97.0 % [facility] COHB Art 0.8 % [facility] Comment: Nonsmokers: 0.5-1.5% COHB Smokers: Variable, but usually less than 10% Toxic: 20-30% COHB Lethal: Greater than 60% COHB METHB Art 0.4 <=1.5 % [facility] Na Whole Blood 133 (L) 135 - 145 mmol/L [facility] K Whole Blood 3.6 [...] [facility] Flow Art 5.0 LPM [facility] Specimen Anatomical Collection Method Collection Time Receive d Time (Source) Location / / Volume Laterality Blood specimen 11/30/2019 8:09 PM 020 8:09 (specimen) EDT PM EDT Gretchen Yoon MD CHEMISTRY ORDERABLES Performing Organization Address City/State/ZIP [place] [address] Angiogram [place] (11/30/2019 4:36 PM EDT) Anatomical [...] CT HEAD WO CONTRAST (GENERIC), CT ANGIOGRAM [place] CLINICAL HISTORY: Headache, intracranial hemorrhage suspected F/U on known ICH - assessing for propaga tion TECHNIQUE: CT head performed without intravenous co ntrast administration. CT angiogram [place] 65 cc Omnipaque 350 administered [...] HEAD WO CONTRAST (GENERI C), CT ANGIOGRAM [place] CLINICAL HISTORY: Headache, intracranial hemorrhage suspected F/U on known ICH - assessing for propaga tion TECHNIQUE: CT head performed without intravenous co ntrast administration. CT angiogram [place] 65 cc Omnipaque 350 administered [...] CT HEAD WO CONTRAST (GENERIC), CT ANGIOGRAM [place] CLINICAL HISTORY: Headache, intracranial hemorrhage suspected F/U on known ICH - assessing for propaga tion TECHNIQUE: CT head performed without intravenous co ntrast administration. CT angiogram [place] 65 cc Omnipaque 350 administered [...] HEAD WO CONTRAST (GENERI C), CT ANGIOGRAM [place] CLINICAL HISTORY: Headache, intracranial hemorrhage suspected F/U on known ICH - assessing for propaga tion TECHNIQUE: CT head performed without intravenous co ntrast administration. CT angiogram [place] 65 cc Omnipaque 350 administered [...] 453 ms MUSE SYSTEM (Bezet) Calculated P Monument 52 degrees MUSE SYSTEM Calculated R Monument 5 degrees MUSE SYSTEM Calculated T [place] -60 degrees MUSE SYSTEM INTERPRETATION Sinus rhythm [...] Nilo ? (Age): 1945(74y) Med Rec#: ? [id number] ?Sex: ?M ? Site Loc: ? [facility] ?Ht / Wt: ??178(cm)/64(kg) Pt. Loc: ?CCU ? BSA: ?1.8 Study Date: ?? 11/30/2019 ?Pt. Type: Inpatient Tape: ? Referring: GILMER Reading: Tello Mejia ([id number]) Envelope Sealer: Friend, Lolita Diagnosis: *ST elevation (STEMI) myocardial [...] Vmax ?0.58 ? m/sec ? MV deceleration [id number] ? m sec ? MV A-wave Vmax [...] ? Mid-Inferior ?Akinetic ? Mid-Inferoseptal ?Normal ? [place]-Septal ? Normal ? [place]-Anterior ? Normal ? [place]-Lateral ?Normal ? [place]-Inferior ? Hypokinetic ? [place]-Tip ?Normal ? This report has been electronically sign ed by: _ Tello Mejia MD ? 11/30/2019 12: 45:27 Images reviewed and interpretation [facility] Cardiac Ultrasound Laboratory Procedure Note Tello Mejia MD - 11/30/2019Formatti ng of this note might be different from the original. Procedure: Transthoracic Echocardiogram Patient: RITA ACOSTA(Age): [birth year](74y) Med Rec#: [id number] Sex: M Site Loc: [facility] Ht / Wt: 178(cm)/64(kg) Pt. Loc: [facility] BSA: 1.8 Study Date: 11/30/2019 Pt. Type: Inpatie nt Tape: Referring: VANGIEJ Reading: Tello Mejia ([id number]) Envelope Sealer: Eve Lolita Diagnosis: *ST elevation (STEMI) myocardial [...] MV E-wave Vmax 0.58 m/sec MV deceleration [id number] msec MV A-wave Vmax 0.74 m/sec MV [...] Hypokinetic Mid-Posterolateral Hypokinetic Mid-Inferior Akinetic Mid-Inferoseptal Normal [place]-Septal Normal [place]-Anterior Normal [place]-Lateral Normal [place]-Inferior Hypokinetic [place]-Tip Normal This report has been electronically sign ed by: _ Tello Mejia MD 11/30/2019 12:45:27 Images reviewed and interpretation verif d [facility] Cardiac Ultrasound Laboratory Gretchen Yoon [...] ORDERABLES Magnesium (11/30/2019 8:30 AM EDT) athologist [facility] Magnesium 0.88 0.69 - 1.07 [facility] mmol/L [facility] Specimen Anatomical Collection Method Collection Time Receive d Time (Source) Location / / Volume Laterality Blood specimen Venous Draw / 11/30/2019 8:30 AM 2019 8:37 (specimen) Unknown EDT AM EDT Resulting Agency Comment Spec In Lab Rossy Winn MD CHEMISTRY ORDERABLES Performing Organization Address City/State/[place] [address] (ABNORMAL) CK (11/30/2019 8:30 AM EDT) athologist [facility] CK, Total 1,645 (H) 0 - 200 [facility] Specimen Anatomical Collection Method Collection Time Receive d Time (Source) Location / / Volume Laterality Blood specimen 11/30/2019 8:30 AM 020 8:32 (specimen) EDT AM EDT Resulting Agency Comment Spec In Lab Gretchen Yoon MD CHEMISTRY ORDERABLES Performing Organization Address City/[facility]/ZIP [facility] [place] [address] (ABNORMAL) Troponin (11/30/2019 8:30 AM EDT) athologist [facility] Troponin-T 8.04 (H) 0.00 - MELINA OLIVIA 0.00 ng/mL [facility] Comment: result rechecked-rancho The 99th percentile for Troponin T is le ss than 0.01 ng/mL, any detectable cTnT concentration using this assay should be considered elevated. According to the third universal definit ion of myocardial infarction the following criteria with a clinical prese ntation consistent with acute myocardial ischemia meets the diagnosis for a myocardial infarction ([place]). Detection of a rise and/or fall of [...] additional sample may be indicated. Reference: Third [place] Definition of Myocardial Infarction. Journal of the [place] [employer] 2012;60:1581-98 Specimen Anatomical Collection Method Collection Time Receive d Time (Source) Location / / Volume Laterality Blood specimen 11/30/2019 8:30 AM 020 8:32 (specimen) EDT AM EDT Resulting Agency Comment Spec In Lab Gretchen Yoon MD CHEMISTRY ORDERABLES Performing Organization Address City/State/ZIP [place] [address] EKG 12 Lead (11/30/2019 7:57 AM EDT) Component Value Ref Range Test Analysis Performed Pathologis t Method Time At Signature Ventricular rate 64 BPM MUSE SYSTEM Atrial Rate 64 BPM MUSE SYSTEM P-R Interval 132 ms MUSE SYSTEM QRS Duration 78 ms MUSE SYSTEM Q-T Interval 420 ms MUSE SYSTEM QTC Calculated 433 ms MUSE SYSTEM (Bezet) Calculated P Monument 28 degrees MUSE SYSTEM Calculated R Mon[place] 7 degrees MUSE SYSTEM Calculated T [place] -33 degrees MUSE SYSTEM INTERPRETATION Sinus rhythm [...] 65 - 99 [facility] Fasting mg/dL [facility] Comment: ?Fasting* Glucose Interpretive C riteria [...] of Diabetes Mellitus, Position Statement from the [place] [employer]. ??Diabete s Care, Volume 33, [...] of body mass or the acutely ill. http://AdMob/[facility]Ank eGFR 98 >=60 mL/min/1.73 m?? [facility] Comment: The eGFR was calculated using the CKD-EP I equation. As with all creatinine based estimates of kidney function, eGFR values calculated with the CKD-EPI equation are not accurate in patients wi th acute kidney failure, extremes of body mass or the acutely ill. http://AdMob/[facility] TULSAnkf Specimen Anatomical Collection Method Collection Time Receive d Time (Source) Location / / Volume Laterality Blood specimen 11/30/2019 2:15 AM 020 2:29 (specimen) EDT AM EDT Resulting Agency Comment Spec In Lab Gretchen Yoon MD CHEMISTRY ORDERABLES Performing Organization Address City/State/ZIP Code Phon e Number [place] [id number] (ABNORMAL) Hemogram (11/30/2019 2:15 AM EDT) Analysis Performed At Patho logist Time Signature WBC 11.2 (H) 4.0 - 9.5 [facility] x10(3)/[facility] LABORATORY RBC 3.83 (L) 4.58 - [facility] 5.54 [facility] x10(6)/[facility] LABORATORY Hemoglobin 11.4 (L) 13.7 - [facility] 16.5 gm/dL [facility] Hematocrit 35.2 (L) 40.5 - [facility] 48.5 % [facility] MCV 91.9 82.9 - [facility] 93.1 fL [facility] MCH 29.8 27.5 - [facility] 32.1 [facility] LABORATORY MCHC 32.4 32.0 - MELINA WHITTENCOCK 35.7 gm/dL [facility] Platelets 122 (L) 145 - 357 MELINA [facility]IVIA x10(3)/[facility] LABORATORY RDWSD 49.8 (H) 36.0 - MELINA WHITTENCOCK 45.0 [facility] LABORATORY RDWCV 14.8 (H) 11.4 - MELINA OLIVIA 13.8 % [facility] MPV 12.1 7.6 - 12.9 MELINA MONAE [facility] LABORATORY nRBC % Auto 0.0 % [facility] nRBC Abs Auto 0.000 0.000 - [place] MARSH[place]IVIA 0.000 [facility] x10(3)/[facility] LABORATORY Specimen Anatomical Collection Method Collection Time Receive d Time (Source) Location / / Volume Laterality Blood specimen 11/30/2019 2:15 AM 020 2:29 (specimen) EDT AM EDT Resulting Agency Comment Spec In Lab Gretchen Yoon MD HEMATOLOGY ORDERABLES Performing Organization Address City/[facility]/ZIP Code Phon e Number [address] (ABNORMAL) CK (11/30/2019 2:15 AM EDT) [facility], Total 1,969 (H) 0 - 200 [facility]L [facility] Specimen Anatomical Collection Method Collection Time Receive d Time (Source) Location / / Volume Laterality Blood specimen 11/30/2019 2:15 AM 020 2:29 (specimen) EDT AM EDT Resulting Agency Comment Spec In Lab Gretchen Yoon MD CHEMISTRY ORDERABLES Performing Organization Address City/State/[place] [address] (ABNORMAL) Troponin (11/30/2019 2:15 AM EDT) [facility] Troponin-T 11.73 (H) 0.00 - MELINA WHITTENCOCK 0.00 ng/mL [facility] Comment: result rechecked-slw The 99th percentile for Troponin T is le ss than 0.01 ng/mL, any detectable cTnT concentration using this assay should be considered elevated. According to the third universal definit ion of myocardial infarction the following criteria with a clinical prese ntation consistent with acute myocardial ischemia meets the diagnosis for a myocardial infarction ([place]). Detection of a rise and/or fall of [...] additional sample may be indicated. Reference: Third [place] Definition of Myocardial Infarction. Journal of the [place] [employer] 2012;60:1581-98 result rechecked- The 99th percentile for Troponin T is le ss than 0.01 ng/mL, any detectable cTnT concentration using this assay should be considered elevated. According to the third universal definit ion of myocardial infarction the following criteria with a clinical prese ntation consistent with acute myocardial ischemia meets the diagnosis for a myocardial infarction ([place]). Detection of a rise and/or fall of [...] additional sample may be indicated. Reference: Third [place] Definition of Myocardial Infarction. Journal of the [place] [employer] 2012;60:1581-98 Corrected from 11.73 ng/ml [HI] on 11/29 3:11:51 EDT by Debi Hawley Specimen Anatomical Collection Method Collection Time Receive d Time (Source) Location / / Volume Laterality Blood specimen 11/30/2019 2:15 AM 020 2:29 (specimen) EDT AM EDT Resulting Agency Comment Spec In Lab Gretchen Yoon MD CHEMISTRY ORDERABLES Performing Organization Address City/[facility]/ZIP Code Phon e Number [address] LDL Cholesterol, Direct (11/30/2019 2:15 AM EDT) P athologist Signature LDL Chol 156 mg/dL [facility] LABORATORY Comment: Lowest Risk: <100 mg/dL Lower Risk: 100-129 mg/dL Borderline High Risk: 130-159 mg/dL High Risk: 160-189 mg/dL Very High Risk: >jp=872 mg/dL Specimen Anatomical Collection Method Collection Time Receive d Time (Source) Location / / Volume Laterality Blood specimen 11/30/2019 2:15 AM 020 2:29 (specimen) EDT AM EDT Resulting Agency Comment Spec In Lab Gretchen Yoon MD CHEMISTRY ORDERABLES Performing Organization Address City/[facility]/ZIP Code Phon e Number [address] (ABNORMAL) Hemoglobin A1c (11/30/2019 2:15 AM EDT) Analysis Performed At Patho logist Time Signature Hemoglobin A1C 6.3 (H) 4.3 - 5.6 [facility] LABOR[facility]ORY Comment: Reference Range: 4.3 - [...] Mellitus, Diabetes Care 2013; 36: Suppl. 1, R29-99 Est Avg Gluc See note mg/dL [facility] Comment: Estimated Average Glucose not [...] with hemoglobinopathies. Additional resources are available on [facility] ADA website. Kiko CARBAJAL, Jenn J, Silas R, et al. ??Tr anslating the A1C assay into estimated average glucose values. ??Diabetes Care 2008:31(8):1020-9812. Specimen Anatomical Collection Method Collection Time Receive d Time (Source) Location / / Volume Laterality Blood specimen 11/30/2019 2:15 AM 020 2:29 (specimen) EDT AM EDT Resulting Agency Comment Spec In Lab Gretchen Yoon MD CHEMISTRY ORDERABLES Performing Organization Address City/State/ZIP [place] [address] Lipid Panel (Reflex Direct LDL) (11/30/2019 2:15 AM EDT) athologist Signature Chol, Total 195 mg/dL [facility] Comment: Lower Risk: <200 mg/dL Average Risk: 200-239 mg/dL Higher Risk: >rp=805 mg/dL Triglycerides 93 mg/dL [facility] Comment: Average Risk/Lower Risk: <150 mg/dL Borderline High Risk: 150-199 mg/dL High Risk: 200-499 mg/dL Very High Risk: >ey=882 mg/dL HDL 32 mg/dL [facility] Comment: Males: ?? Higher Risk: <40 mg/dL Females: ?? HIgher Risk: <50 mg/dL LDL Cholesterol 144 mg/dL [facility] Comment: Lowest Risk: <100 mg/dL Lower Risk: 100-129 mg/dL Borderline High Risk: 130-159 mg/dL High Risk: 160-189 mg/dL Very High Risk: >ec=314 mg/dL Chol/HDL Ratio 6.1 ratio [facility] Lipid Interpretation See Note [facility] Comment: Lipid management should be guided by a p atient? s ASCVD risk, goals and preferences. ACC/AHA Guidelines recommend high intens ity statin if clinical ASCVD or LDL greater than or equal to 190 mg/dL. http://[employer].PicPrizes/AEV-SUQ-Bxfrthbzq Adults aged 40-75 with LDL 70-189 mg/dL should have their 10 year ASCVD risk estimated with the ACC/AHA ASCVD risk es timator http://tools.acc.org/JJHYA-Anjo-Imufddev r/ Statin should be discussed if risk [...] Organization Address City/State/ZIP [place] [address] (ABNORMAL) CK (11/29/2019 6:35 PM EDT) athologist Signature CK, Total 2,780 (H) 0 - 200 [facility] unit/L [facility] Specimen Anatomical Collection Method Collection Time Receive d Time (Source) Location / / Volume Laterality Blood specimen 11/29/2019 6:35 PM 020 6:53 (specimen) EDT PM EDT Resulting Agency Comment Spec In Lab Gretchen Yoon MD CHEMISTRY ORDERABLES Performing Organization Address City/State/ZIP [place] [address] (ABNORMAL) Troponin (11/29/2019 6:35 PM EDT) athologist Signature Troponin-T 17.60 (H) 0.00 - [facility] 0.00 ng/mL [facility] Comment: result rechecked-az The 99th percentile for Troponin T is le ss than 0.01 ng/mL, any detectable cTnT concentration using this assay should be considered elevated. According to the third universal definit ion of myocardial infarction the following criteria with a clinical prese ntation consistent with acute myocardial ischemia meets the diagnosis for a myocardial infarction ([place]). Detection of a rise and/or fall of [...] additional sample may be indicated. Reference: Third [place] Definition of Myocardial Infarction. Journal of the [place] [employer] 2012;60:1581-98 Specimen Anatomical Collection Method Collection Time Receive d Time (Source) Location / / Volume Laterality Blood specimen 11/29/2019 6:35 PM 020 6:53 (specimen) EDT PM EDT Resulting Agency Comment Spec In Lab Gretchen Yoon MD CHEMISTRY ORDERABLES Performing Organization Address City/State/ZIP [place] [address] EKG 12 Lead (11/29/2019 3:58 PM EDT) [facility] gist Method Time Signature Ventricular rate 73 BPM MUSE SYSTEM Atrial Rate 73 BPM MUSE SYSTEM P-R Interval 152 ms MUSE SYSTEM QRS Duration 84 ms MUSE SYSTEM Q-T Interval 404 ms MUSE SYSTEM QTC Calculated 445 ms MUSE SYSTEM (Bezet) Calculated P Monument 50 degrees MUSE SYSTEM Calculated R Monument -4 degrees MUSE SYSTEM Calculated T Monument 19 degrees MUSE SYSTEM INTERPRETATION Sinus rhythm [...] Electronically signed by: Devin Solis [facility] ([phone]), at 11/29/2019 5:06 PM --------ORIGINAL REPORT -------- [...] lung apex is excluded from the imaged [id number]. IMPRESSION: 1. ??New right internal jugular pulmonar [...] Electronically signed by: Devin Solis [facility] ([phone]), at 11/29/2019 4:36 PM Impressions 11/29/2019 4:36 [...] Electronically signed by: Devin Solis [facility] ([phone]), at 11/29/2019 4:36 PM Narrative 11/29/2019 4:36 [...] lung apex is excluded from the imaged [id number]. Procedure Note Estefani Harris MD - 11/29/2019Formattin [...] lung apex is excluded from the imaged deivq-az-[id number]. IMPRESSION 1. New right internal jugular pulmonary [...] Electronically signed by: Devin Solis [facility] ([phone]), at 11/29/2019 4:36 PM Juventino Concepcion MD IMG DX ORDERABLES (ABNORMAL) Differential, Automated (11/29/2019 2:32 PM EDT) [facility] Method Time Signature Neutrophils % 83.8 % [facility] LABORATORY Neutr Abs (ANC) 12.12 (H) 1.70 - [facility] 6.10 [facility] x10(3)/[facility] LABORATORY Lymphocytes % 9.1 % [facility] LABORATORY Lymphocytes Abs 1.3 0.9 - 3.2 [facility] x10(3)/[facility] LABORATORY Monocytes % 6.2 % [facility] LABORATORY Monocyte Abs 0.9 0.3 - 0.9 [facility] x10(3)/[facility] LABORATORY Eosinophils % 0.0 % [facility] LABORATORY Eosinophils Abs 0.0 0.0 - 0.4 [facility] x10(3)/[facility] LABORATORY Basophils % 0.3 % [facility] LABORATORY Basophils Abs 0.0 0.0 - 0.1 [facility] x10(3)/[facility] LABORATORY Immature Gran % 0.60 % [facility] [...] Abs 0.08 (H) 0.00 - 0.04 x10(3)/[facility] LABORATORY Specimen Anatomical Collection Method Collection Time Receive d Time (Source) Location / / Volume Laterality Blood specimen 11/29/2019 2:32 PM 020 2:55 (specimen) EDT PM EDT Resulting Agency Comment Spec In Lab Darrell Glasgow MD HEMATOLOGY ORDERABLES Performing Organization Address City/State/ZIP [place] [address] (ABNORMAL) Hemogram (11/29/2019 2:32 PM EDT) Analysis Performed At Patho logist Time Signature WBC 14.5 (H) 4.0 - 9.5 [facility] x10(3)/[facility] LABORATORY RBC 4.53 (L) 4.58 - [facility] 5.54 [facility] x10(6)/[facility] LABORATORY Hemoglobin 13.1 (L) 13.7 - [facility] 16.5 gm/dL [facility] Hematocrit 40.8 40.5 - [facility] 48.5 % [facility] MCV 90.1 82.9 - [facility] 93.1 [facility] LABORATORY MCH 28.9 27.5 - [facility] 32.1 pg [facility] MCHC 32.1 32.0 - [facility] 35.7 gm/dL [facility] Platelets 184 145 - 357 [facility] x10(3)/[facility] LABORATORY RDWSD 47.8 (H) 36.0 - [facility] 45.0 [facility] LABORATORY RDWCV 14.5 (H) 11.4 - [facility] [place] 13.8 % [facility] MPV 11.9 7.6 - 12.9 [facility] LAB[facility] nRBC % Auto 0.0 % [facility] LABORATORY nRBC Abs Auto 0.000 0.000 - [place] 0.000 [facility] x10(3)/[facility] LABORATORY Specimen Anatomical Collection Method Collection Time Receive d Time (Source) Location / / Volume Laterality Blood specimen 11/29/2019 2:32 PM 020 2:55 (specimen) EDT PM EDT Resulting Agency Comment Spec In Lab Darrell Glasgow MD HEMATOLOGY ORDERABLES Performing Organization Address City/State/ZIP Code Phon e Number [address] (ABNORMAL) CK (11/29/2019 2:32 PM EDT) athologist Signature CK, Total 3,282 (H) 0 - 200 [facility] unit/L [facility] Specimen Anatomical Collection Method Collection Time Receive d Time (Source) Location / / Volume Laterality Blood specimen 11/29/2019 2:32 PM 020 2:32 (specimen) EDT PM EDT Resulting Agency Comment Spec In Lab Gretchen Yoon MD CHEMISTRY ORDERABLES Performing Organization Address City/[facility] [place] [address] (ABNORMAL) Troponin (11/29/2019 2:32 PM EDT) athologist Signature Troponin-T 20.33 (H) 0.00 - [place] 0.00 ng/mL [facility] Comment: The 99th percentile for Troponin T is le ss than 0.01 ng/mL, any detectable cTnT concentration using this assay should be considered elevated. According to the third universal definit ion of myocardial infarction the following criteria with a clinical prese ntation consistent with acute myocardial ischemia meets the diagnosis for a myocardial infarction (GA). Detection of a rise and/or fall of [...] additional sample may be indicated. Reference: Third [place] Definition of Myocardial Infarction. Journal of the [place] [employer] 2012;60:1581-98 Specimen Anatomical Collection Method Collection Time Receive d Time (Source) Location / / Volume Laterality Blood specimen 11/29/2019 2:32 PM 020 2:32 (specimen) EDT PM EDT Resulting Agency Comment Spec In Lab Gretchen Yoon MD CHEMISTRY ORDERABLES Performing Organization Address [facility] [place] [address] (ABNORMAL) APTT (11/29/2019 2:32 PM EDT) P athologist Signature PTT 114 25 - 37 [facility] (Critical) [facility] LABORATORY Comment: Critical Result called by ?? [...] Yoon MD HEMATOLOGY ORDERABLES Performing Organization Address [facility] [place] [address] (ABNORMAL) Prothrombin Time (11/29/2019 2:32 PM EDT) P athologist Signature PT 13.5 (H) 9.4 - 12.5 [facility] LABORATORY INR 1.2 [facility] Organization Address City/State/[place] [address] (ABNORMAL) Hepatic Function Panel (11/29/2019 2:32 PM EDT) P athologist Signature Total Protein 6.3 6.1 - 8.0 [facility] gm/dL [facility] Albumin 3.6 3.2 - 5.2 [facility] gm/dL [facility] AST 257 (H) 0 - 39 [facility]L [facility] ALT 50 0 - 55 [facility]L [facility] Alk Phos 84 40 - 130 [facility]L [facility] Total 0.3 0.2 - 1.3 [facility] Bilirubin mg/dL [facility] Bili, Direct 0.1 0.0 - 0.3 [facility] mg/dL [facility] Specimen Anatomical Collection Method Collection Time Receive d Time (Source) Location / / Volume Laterality Blood specimen 11/29/2019 2:32 PM 020 2:32 (specimen) EDT PM EDT Resulting Agency Comment Spec In Lab Gretchen Yoon MD CHEMISTRY ORDERABLES Performing Organization Address City/[facility]/[place] [address] (ABNORMAL) pro-Brain Natriuretic Peptide [...] Yoon MD CHEMISTRY ORDERABLES Performing Organization Address City/[facility]/ZIP Code Phon e Number [place] Magnesium (11/29/2019 2:32 PM EDT) athologist Signature Magnesium 0.76 0.69 - 1.07 [facility] mmol/L [facility] Specimen Anatomical Collection Method Collection Time Receive d Time (Source) Location / / Volume Laterality Blood specimen 11/29/2019 2:32 PM 020 2:32 (specimen) EDT PM EDT Resulting Agency Comment Spec In Lab Gretchen Yoon MD CHEMISTRY ORDERABLES Performing Organization Address City/State/ZIP Code Phon e Number [address] (ABNORMAL) Basic Metabolic Panel (non-fasting) (11/29/2019 2:32 PM EDT) athologist Signature Glucose Lvl 149 65 - 199 [facility] mg/dL [facility] Comment: Diabetes: >=200 mg/dL plus symp [...] of body mass or the acutely ill. http://[employer]/[facility]kf eGFR 93 >=60 mL/min/1.73 m?? [facility] LABOR[facility]ORY Comment: The eGFR was calculated using the CKD-EP I equation. As with all creatinine based estimates of kidney function, eGFR values calculated with the CKD-EPI equation are not accurate in patients wi th acute kidney failure, extremes of body mass or the acutely ill. http://[employer]/[facility]ULSAnkf Specimen Anatomical Collection Method Collection Time Receive d Time (Source) Location / / Volume Laterality Blood specimen 11/29/2019 2:32 PM 020 2:32 (specimen) EDT PM EDT Resulting Agency Comment Spec In Lab Gretchen Yoon MD CHEMISTRY ORDERABLES Performing Organization Address City/[facility] [place] [address] EKG 12 Lead (11/29/2019 11:38 AM EDT) [facility] gist Method Time Signature Ventricular rate 60 BPM MUSE SYSTEM Atrial Rate 60 BPM MUSE SYSTEM P-R Interval 140 ms MUSE SYSTEM QRS Duration 86 ms MUSE SYSTEM Q-T Interval 474 ms MUSE SYSTEM QTC Calculated 474 ms MUSE SYSTEM (Bezet) Calculated P Monument 48 degrees MUSE SYSTEM Calculated R Monument 14 degrees MUSE SYSTEM Calculated T Monument 58 degrees MUSE SYSTEM INTERPRETATION Normal sinus [...] Yoon MD ECG ORDERABLES Performing Organization Address City/[facility] Phon e Number MUSE SYSTEM CARDIAC CATHETERIZATION (11/29/2019 11:15 AM EDT) Anatomical Region Laterality Modality Other Specimen (Source) Anatomical Location Collection Method / Collectio n Time Received Time / Laterality Volume Narrative 11/30/2019 1:09 PM EDT ?[facility] ? Cardiac Cathete rization/Intervention Report ? Patient Name: Salinas, Angel Luis H. ? Procedure Date: 11/29/2019 ? A #: [id number] ? Primary Physician: Shaan, Gretchen N ? Case #: [id number] ? File Name: [id number] ? Catheterization Order Number: [id number] ? [facility] ? Final Report [place], [place] ? Patient Name: ? Angel Luis Salinas ? ID#: ?[id number] ? : ?1945 ? Procedure Date: ? [...] procedure was Emergent. The indication for ?the chemical laboratory assistant visit is ACS less than or [...] dose administered prior to arrival in the chemical laboratory assistant. ?Recommended anti-platelet/anti- thrombotic regimen: ?Continue aspirin 81 mg daily fo r indefinitely. ?Continue clopidogrel 75 mg marco a y for 12 months then stop. ?These recommendations are made at the time of the intervention. Patient ?and provider preferences or a c hanging clinical situation may require ?modification of this regimen. C marvult [facility] Interventional Cardiology for ?questions. ? [...] note might be different from the original. [facility] Cardiac Catheterization/Intervention Re port Patient Name: SalinasAngel Luis Procedure Date: 11/29/2019 A #: [id number] Primary Physician: Gretchen Yoon Case #: [id number] File Name: [id number] Catheterization Order Number: [id number] [facility] Final Report [place], [place] Patient Name: Angel Luis Salinas ID#: [id number] : 1945 Procedure Date: November 29, [...] was designated as ASA Class IV. The [facility] clinical frailty scale is 4: Vulnerable. Diagnostic Tests: Electrocardiography: EKG was assessed by ECG. EKG was Abnorm al. EKG showed ST Deviation >= 0.5 mm. Medications Prior to Procedure: Aspirin. Indications for Diagnostic Cath: The priority of the diagnostic procedur e was Emergent. The indication for the chemical laboratory assistant visit is ACS less than or [...] priority for the procedure was Emergent. [facility] indication for the procedure was [...] this intervention was 10%. The final TI GA flow was 2. Distal 90% Thrombectomy and [...] this intervention was 10%. The final TI GA flow was 2. Vascular Access: Vascular Access [...] administered prior t o arrival in the chemical laboratory assistant. Recommended anti-platelet/anti-thrombot ic regimen: Continue aspirin 81 mg daily for indefi nitely. Continue clopidogrel 75 mg daily for 12 months then stop. These recommendations are made at the t loyda of the intervention. Patient and provider preferences or a changing clinical situation may require modification of this regimen. Consult D [facility] Interventional Cardiology for questions. [...] 7.33 (L) 7.35 - [facility] 7.45 [facility] POC PCO2 33 (L) 35 - 45 [facility] mmHg [facility] POC PO2 56 (L) 85 - 104 [facility] LABORATORY POC Base Excess -8.0 (L) -3.0 - 3.0 [facility] K mmol/L [facility] POC HCO3 17.4 (L) 20.0 - [facility] 26.0 [facility] mmol/[facility] LABORATORY POC Sodium 137 135 - 145 [facility] mmol/L [facility] POC Potassium 3.6 3.5 - 5.0 [facility] mmol/L [facility] POC Ionized Ca 1.15 1.15 - [facility] 1.33 [facility] POC Hematocrit 37.0 (L) 40.0 - [facility] 51.0 % [facility] POC Calc Hgb 12.6 (L) 13.7 - [facility] 17.5 gm/dL [facility] Comment: The calculation of hemoglobin f rom hematocrit assumes a normal MCHC. POC Bgas Loc CC LAB [facility] LABORATORY Specimen Anatomical Collection Method Collection Time Receive d Time (Source) Location / / Volume Laterality Blood specimen 11/29/2019 9:17 AM 020 7:35 (specimen) EDT AM EDT Gretchen Yoon MD CHEMISTRY ORDERABLES Performing Organization Address City/State/ZIP [place] [address] EKG 12 Lead (11/29/2019 9:01 AM EDT) Component Value Ref Range Test Analysis Performed Pathologis t Method Time At Signature Ventricular rate 80 BPM MUSE SYSTEM Atrial Rate 79 BPM MUSE SYSTEM QRS Duration 94 ms MUSE SYSTEM Q-T Interval 436 ms MUSE SYSTEM QTC Calculated 502 ms MUSE SYSTEM (Bezet) Calculated R Monument 54 degrees MUSE SYSTEM Calculated T Monument 80 degrees MUSE SYSTEM INTERPRETATION Normal sinus rhythm MUSE SYSTEM Inferior infarct , possibly acute Prolonged QT * ACUTE GA ?? Consider right ventricular involvement in acute [...] 1 dose, 12/06/19 at 0515, Ad assistant therapy aide over 120 Minutes magnesium sulfate 2 g [...] Anderson RN)2335 (Rate/Dose Change - Provider: Mukesh Bentely RN) 0704 (Rate/Dose Verify - Provider: Amaya [...] Bentley, NIURKA) 0-8,000 Units, Intravenous, BOLUS PER [facility] PROTOCOL, Starting 12/06/19 at 0926, Until [...] Oral, EVERY 4 HOURS PRN, Startin g [place] 11/30/19 at 2016, Until Sun12/08/19 at 1811, hypokalemia
Administer for serum potassium (mMol/L) of 3.9 - 4 See instructions for Potassium Protocol in online policies.
Routine Or potassium chloride ER (K-Dur/Klor-Con) tablet 40 mEqJump to med 40 mEq, Oral, EVERY 4 HOURS PRN, Startin g [place] 11/30/19 at 2016, Until Sun12/08/19 at 1811, hypokalemia
Administer for serum potassium (mMol/L) of 3.6 - 3.8 See instructions for Potassium Protocol in online policies.
Routine documented in this encounter Care Teams Body Press Operator Relationship Specialty Start Date End Date France Lam MD PCP - General 05/02/13 02/04/20 [address] [place] [address] documented as of this encounter
--- OUTSIDE RECORDS SUMMARY | 2022-04-27 11:08 | XMS_ITS | Encounter Summary ---
:1945 Author Organization [facility] [place] [address] Care Team Providers Name Role Phone France Lam MD Primary Care Provider Encounter Details Date Type Department Care Team Description 11/29/2019 External Results [place] [address] Social History Tobacco Use Types Packs/Day [...] on filedocumented in this encounter Care Teams Assistant Health Educator Relationship Specialty Start Date End Date France Lam MD PCP - General 05/02/13 02/04/20 [address] [place] [address] documented as of this encounter
== END 2022-05-01 23:59 | disposition home or self-care (01) ==
LOC: CR 10:59
PROVIDERS: PCP Family Medicine; Visit Provider Internal Medicine Cardiovascular Disease
DX: R69 Illness, unspecified (principal)
CPT/HCPCS: S9472

== ENCOUNTER 2022-05-30 10:57 | Outpatient (RCR) | payer SELFPAY ==
[2022-05-02 00:08] VITALS: BP 108/57; PULSE 46
--- OUTSIDE RECORDS SUMMARY | 2022-05-02 11:20 | XMS_ITS | Encounter Summary ---
:1945 Author Organization [facility] Address [address] [place] [address] Care Team Providers Name Role Phone Unavailable Primary Care Provider Unavailable Encounter Details Date Type Department Care Team Description 09/02/2003 Results Only [facility] - Otis Patel MD conversion [address] [facility] [address] [place] [address] [place] [address] (Wo rk) Social History Tobacco Use Types [...] ANGEL LUIS SALINAS ? Accession #: ? [id number] ? : ? 1945 (Age: 58) ??M [...] of the lesion is recommended. ?? (Dr. Mascorro)/[facility] Microscopic Description: ? The epidermis is hype [...] and cords of similar melanocytes that show steam shovel engineer maturation with descent. ??There is papillary dermal fibroplasia. ??(Dr. Mascorro)/[facility] Document reviewed and electronically signed by: Mai [...] entirely submitted in one cassette. ??(Dr Stephany Amador)/[facility] End of Report Specimen Performing Organization Address City/State/ZIP Code Phon e Number [facility] LABORATORY [address] [place] [address] [facility] [address] [place] [address] documented in this encounter Visit Diagnoses Not on filedocumented in this encounter
--- OUTSIDE RECORDS SUMMARY | 2022-05-02 11:20 | XMS_ITS | Clinical Summary ---
:1945 Author Organization [facility] [place] [address] Care Team Providers Name Role Phone Jovany Lott MD Primary Care Provider Allergies Active Allergy Reactions Severity Noted Date Comments Penicillins 05/13/2013 Pt doesn't gely mber reaction Bvmumdx-Fto-Xea Reductase 05/13/2013 St iff neck, upset stomach, [...] Address City/State/ZIP Code Phon e Number [place], [place] from Last 3 Months Insurance Payer Benefit Plan / Subscriber ID Effective Dates Phone Addre ss Type Group MEDICARE MEDICARE PART [id number] 2019-Prese [phone] [place] [id number] [place] [id number] 2018-Presen [employer] [place] [id number] Advance Directives Latest Code Status on File [...] capacity to make decision: Yes Care Teams Medical Logistics Specialist Relationship Specialty Start Date End Date Jovany Lott MD PCP - General Family Medicine 02/05/20 [address] [place] [phone]
--- OUTSIDE RECORDS SUMMARY | 2022-05-02 11:20 | XMS_ITS | Encounter Summary ---
:1945 Author Organization [facility] Address [address] [place] [address] Care Team Providers Name Role Phone Jennifer Gomez STORE CONSULTANT Primary Care Provider Encounter Details Date Type Department Care Team Description 03/19/2019 Hospital Encounter [facility]- Sylvia Unknown, Provider, [facility] [phone] [place] [address] (Work) [phone] Social History Tobacco Use Types Packs/Day Years Used Date Never Assessed Sex Assigned at Date Recorded Not on file documented as of this encounter Discharge Disposition Disposition Code Departure Means Destination Home or Self [place] documented in this encounter Plan of Treatment Not on filedocumented as of this encounter Visit Diagnoses Not on filedocumented in this encounter Care Teams Systems Programmer Relationship Specialty Start Date End Date Jennifer Gomez, STORE CONSULTANT PCP - General 05/10/15 [facility] [address] [place], [place] [id number] documented as of this encounter
--- OUTSIDE RECORDS SUMMARY | 2022-05-02 11:20 | XMS_ITS | Encounter Summary ---
:1945 Author Organization [facility] [place] [address] Care Team Providers Name Role Phone Jovany Lott MD Primary Care Provider Encounter Details Date Type Department Care Team Description 10/12/2020 Notes Only Cardiology at [facility] Willow Callejas, NIURKA [facility] [place] [address] Social History Tobacco Use Types Packs/Day [...] want totalk to my doctor at the [place] and do a little more research before I decide what to do, I'm a little afraid of it. He notes that he has a scheduled clinic visit in November and will discuss with Dr. Garduno at that time. documented in this encounter Plan of Treatment Not on filedocumented as of this encounter Visit Diagnoses Not on filedocumented in this encounter Care Teams Reimbursement Auditor Relationship Specialty Start Date End Date Jovany Lott MD PCP - General Family Medicine 02/05/20 [place] [phone] documented as of this encounter
--- OUTSIDE RECORDS SUMMARY | 2022-05-02 11:20 | XMS_ITS | Encounter Summary ---
:1945 Author Organization [facility] Address [address] [place] [address] Care Team Providers Name Role Phone Jennifer Gomez FLASK FITTER Primary Care Provider Encounter Details Date Type Department Care Team Description 08/26/2021 Lab Requisition [facility] Najma Valladares for other Pathology & M, DO general examination Laboratory Medicine - [address] [facility] [address] [place] [id number] Social History Tobacco Use Types Packs/Day Years [...] 8:45 EST) Note to Patient The following [facility] pathology results have CENTER been interpreted by your LABORATORY pathologist and may be SERVICES available to you before your health provider has had the opportunity to review them. Please allow time for your provider to receive these results and explore management options, if applicable. Final Diagnosis A. RECTUM, POLYP, BIOPSY : [facility] - Polypoid submucosal anal glands. CENTER - Overlying rectal mucosa negative for dysplasia. LABORATORY - See comment. SERVICES Diagnosis Comment This rectal polyp shows a cantor bmucosal collection of anal duct glands causing a polypoid configuration. The morphology and the immunohistochemical profile are consistent with a benign (non-neoplastic) pro [facility] cess. [employer] Scientific Aid slides of this case were reviewed at the gastrointestinal/liver intradepartmental consultation conference. CENTER LABORATORY ANTIBODY(CLONE)(BLOCK):RESULT SERVICES CK7 (RN7, Leica) (A1): Strongly positive PAX-8 (MRQ-50, Ophir) (A1): Negative NKX3.1 (Rabbit Polyclonal, Biocare) (A1): Negative GATA3 (L50-823, Ophir) (A1): Negative NOTE: One or more of [...] laboratory testing. Attestation By the signature below, [facility] Elec tronically the attending physician CENTER sign ed by Odalis, certifies that they have LABORATORY Tami MD edna on 1) personally conducted SERVICES 2021 at 1309 a gross and/or microscopic examination of the described specimen(s), and/or personally interpreted the results of laboratory testing of the described specimen(s), and 2) personally rendered or confirmed the above diagnosis. Clinical History Flex sigmoidoscopy; [facility] diverticulosis, polyp CENTER LABORATORY SERVICES Gross Description A. [facility] Received in formalin mark d with proper patient identification (initials M, J) and rectal polyp is a marr-brown polyp, 0.6 x 0.5 x 0.4 cm. Bisected and entirely submitted in A1. CENTER LABORATORY ESTEFANY NICHOLS(ASCP) 08/26/2021 16:41 SE RVICES Performing Lab [facility] LABOR[facility] SERVICES Scanned Images [facility] LABOR[facility] SERVICES Specimen Tissue - Specimen from rectum (specimen) Performing Organization Address City/State/ZIP Code Phon e Number [facility] [address] [place] [address] SERVICES documented in this encounter Visit Diagnoses Diagnosis Encounter for other general examination documented in this encounter Care Teams Food Production Worker Relationship Specialty Start Date End Date Jennifer Gomez NP PCP - General 05/10/15 [facility] [address] [place] [id number] documented as of this encounter
--- OUTSIDE RECORDS SUMMARY | 2022-05-02 11:20 | XMS_ITS | Encounter Summary ---
:1945 Author Organization [facility] [place] [address] Care Team Providers Name Role Phone Jovany Lott MD Primary Care Provider Reason for Visit Consultation (Routine) - Closed Specialty Diagnoses / Procedures Referred By Contact Refer red To Contact Cardiology Diagnoses ST elevation (STEMI) myocardial infarction of unspecified site Hyperlipidemia, unspecified PeriDawit muhammad [place] [address] [place] [address] [address] [facility] [place] [facility] D EPT [address] [place] [address] Fax: Referral ID Status Reason Start Date Expiration Date Visits V isits Requested Authorized [id number] Closed Consult, Test 02/10/2020 02/09/2021 [facility] PCP Updated and/or Approved Encounter Details Date Type Department Care Team Description 03/12/2020 TH Visit Cardiology at [facility] Melina Payan Fredrickson type IIa hyperli poproteinemia; (TeleHealth) [facility] Hyperglycemia; [facility] Elevated TSH; [facility] Hypothyroidism, acquired [id number] CARDIOLOGY DEPT [phone] [place], [place] [address] Social History Tobacco Use Types Packs/Day Years Used Date Former Smoker Cigars 0.5 Quit: 11/29/19 20 Smokeless Tobacco: Former User Comments: Quit chew tobacco years and y ears ago Sex Assigned at Date Recorded Not on file documented as of this encounter Progress Notes Melina Payan MD - 03/12/2020 1:00 PM EDT [facility]--Initial Consultation [...] Social History: 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 They have [...] medications for this visit. 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 He has multiple cardiovascular risk factors including peripheral artery disease, hyperlipidemia (elevated LDL, depressed HDL), a 06-ffud-surh history of smoking, and prediabetes. Jovany quit [...] but Jovany replied: I can't drive to [place] every 2 weeks for that. I explained [...] hypothyroidism documented in this encounter Care Teams Employment And Claims Aide Relationship Specialty Start Date End Date Jovany Lott MD PCP - General Family Medicine 02/05/20 [place] [address] documented as of this encounter
--- OUTSIDE RECORDS SUMMARY | 2022-05-02 11:20 | XMS_ITS | Encounter Summary ---
:1945 Author Organization [facility] [place] [address] Care Team Providers Name Role Phone Jovany Lott MD Primary Care Provider Encounter Details Date Type Department Care Team Description 10/05/2020 Notes Only Cardiology Merlin Sanchez [place] [address] CARDIOLOGY DEPT. [phone] [place], [place] [address] (Wo rk) Social History Tobacco [...] with [facility] Merlin Sanchez MD [facility] Pager 2020 documented in this encounter Plan of Treatment Not on filedocumented as of this encounter Visit Diagnoses Not on filedocumented in this encounter Care Teams Headlight Assembler Relationship Specialty Start Date End Date Jovany Lott MD PCP - General Family Medicine 8/6/20 [address] [place] [address] documented as of this encounter
--- OUTSIDE RECORDS SUMMARY | 2022-05-02 11:20 | XMS_ITS | Encounter Summary ---
:1945 Author Organization [place] [address] Care Team Providers Name Role Phone Jovany Lott MD Primary Care Provider Encounter Details Date Type Department Care Team Description 11/10/2020 Telephone Cardiology at [facility] [phone] Social History Tobacco Use Types Packs/Day [...] on filedocumented in this encounter Care Teams Prop Setter Relationship Specialty Start Date End Date Jovany Lott MD PCP - General Family Medicine 02/05/20 [place] [id number] documented as of this encounter
--- OUTSIDE RECORDS SUMMARY | 2022-05-02 11:20 | XMS_ITS | Continuity of Care Document ---
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 Z23 Encounter for [place] immunizationwith CBO C Provider Comments: Encounter for Immunization Diagnosis: ICD-10-CM Active Diagnosis ST. H90.3 Sensorineural [facility] hearing loss, CBOC bilateralwith Provider Comments: Asymmetrical sensorineural hearing loss (SNOMED CT [id number]) Diagnosis: ICD-10-CM Active Diagnosis ST. I25.10 Athscl heart [facility] disease of [place] CB OC coronary artery w/o ang pctrswith Provider Comments: Atherosclerotic Heart Disease of [place] Coronary Artery without Angina Pectoris Medications Combined list of outpatient medications from Department of Defense and Veterans Affairs facilities. Medications provided include 1) outpatient medications from the last 15 months, and 2) patient-reported medications. Medication Details Route Status Patient Prescription Prescription Last Ordering Order Source Instructions Expires Number Dispense Provider Date Date AMIODARONE TAKE ONE ORAL ACTIVE 02/14/2023 [id number] JORGE A LOZA HCL TABLET 2 N 2021 [place] (PACERONE) BY MOUTH [place] 200MG TAB EVERY [facility]OC DAY AFTER ONE MONTH OF TWICE DAILY DOSING THROUGH 02/26/22 APIXABAN TAKE ONE ORAL ACTIVE 2023 [id number] WILLIE LOZA 01/20/ WHITE 5MG TAB TABLET 2 N 2021 [place] BY MOUTH [place] TWICE A [facility] DAY TO HELP PREVENT BLOOD CLOTS (ANTICOA GULATION CCNRX) APIXABAN TAKE ONE ORAL 12/21/2021 [id number] GIANGR ECO 12/30/ WHITE 5MG TAB TABLET 2 ,MILTON B 2020 [place] BY MOUTH [place] EVERY [facility] TWELVE HOURS TO HELP PREVENT BLOOD CLOTS (ANTICOA GULATION ) ASPIRIN TAKE ONE ORAL ACTIVE GIANGRECO 12/20/ WHI TE 81MG TAB,EC TABLET ,MILTON B 2020 ANNALEE ER BY MOUTH [place] EVERY [facility] DAY CHOLECALCIF TAKE ONE ORAL ACTIVE IRASEMA,P 04/22/ ST. DARIO 25MCG TABLET EGGY A 2014 [place] (1,000UNIT) BY MOUTH RY CB OC TAB EVERY OTHER DAY FUROSEMIDE TAKE ONE ORAL ACTIVE 12/17/2022 [id number] JORGE A LOZA 12/21/ WHITE 20MG TAB TABLET 2 N 2021 [place] BY MOUTH [place] EVERY [facility] OTHER DAY TO REMOVE FLUID/CO NTROL BLOOD PRESSURE FUROSEMIDE TAKE ONE ORAL 11/12/2021 [id number] SJ PATTON,M 11/12/ ST. 20MG TAB TABLET 2 ICHAEL 2020 [place] BY MOUTH RY CBOC EVERY OTHER DAY TO REMOVE FLUID/CO NTROL BLOOD PRESSURE LISINOPRIL TAKE ONE ORAL ACTIVE 12/17/2022 [id number] JORGE A LOZA 12/21/ WHITE 5MG TAB TABLET 2 N 2021 [place] BY MOUTH [place] EVERY [facility] DAY TO CONTROL BLOOD PRESSURE LISINOPRIL TAKE ONE ORAL DISCONT 06/08/2022 [id number] JORGE A LOZA 06/15/ WHITE 5MG TAB TABLET INUED 2 N 2020 [place] BY MOUTH [place] EVERY [facility] DAY TO CONTROL BLOOD PRESSURE LISINOPRIL TAKE ONE ORAL 06/03/2021 [id number] STANL EY,M 06/08/ ST. 5MG TAB TABLET 1 ICHAEL 2019 [place] BY MOUTH RY CBOC EVERY DAY TO CONTROL BLOOD PRESSURE METOPROLOL TAKE ONE ORAL ACTIVE 02/14/2023 [id number] JORGE A LOZA 02/15/ WHITE SUCCINATE TABLET 2 N 2021 [place] 25MG TAB,SA BY MOUTH [place] EVERY [facility] DAY FOR BLOOD PRESSURE /HEART METOPROLOL TAKE ONE ORAL DISCONT 02/23/2022 [id number] Mery BLEVINS 02/28/ ST. SUCCINATE TABLET INUED 2 ICHAEL 2020 [place] 25MG TAB,SA BY MOUTH RY CB OC EVERY DAY FOR BLOOD PRESSURE /HEART NITROGLYCER TAKE ONE SUBLIN 02/23/2022 [id number] Mery LR 02/28/ ST. IN 0.4MG TABLET GUAL 1 2020 [place] TAB,SUBLING UNDER RY CBOC UAL THE TONGUE EVERY 5 MINUTES NEEDED FOR CHEST PAIN (ANGINA) MAY REPEAT FOR THREE DOSES (IF NO RELIEF,S [facility] N PROMPTLY ) TIOTROPIUM INHALE DISCONT 07/16/2021 [id number] Tamra LOZA 07/21/ WHITE 18MCG ONE INUED 1 N 2020 [place] CAP,INHL,90 CAPSULE [place] IN [facility] INHALER BY MOUTH EVERY DAY [...] atus Comments Source Given By Number Code Corporate Statistical Financial Analyst ZOSTER [address] RECOMBINANT 2020 ed [...] result by 1.210 Tests performed on [employer] (405) SN:[id number] [place] eGFR E] IN SERUM Ordering Pr ovider: [place] UREÑA [facility] PANEL OR PLASMA Report Releas ed Date/Time: Feb 24, 2021 11:18 AM Reporting Lab: [place] [facility] [address] [facility] [address] Performing Lab: [place] [facility] [address] [facility] [address] CREATININ GLOMERULAR 44 60 04/28 L Specimen Ty pe: PLASMA WHITE E WITH FILTRATION /2020 Comment: For eGFR: Race unknown, if multiply result by 1.210 Tests performed on [employer] (405) SN:[id number] [place] eGFR RATE/1.73 Ordering Prov ider: [place] [facility] PANEL SQ Report Released Date/Time: Feb 24, 2021 11:18 AM M.PREDICTED Reporting L ab: [place] [facility] [VOLUME [address] [place] [facility] [place] [address] RATE/AREA] Performing L ab: [place] [facility] IN SERUM OR [address] [place] [facility] [place] [address] PLASMA BY CREATININE- BASED FORMULA (MDRD) CBC NO LEUKOCYTES 5.8 4.5 - 11.0 04/28 Specimen T ype: BLOOD WHITE DIFF [#/VOLUME] /2020 No comment en tered. [place] IN BLOOD BY Ordering Pr ovider: [place] [facility] AUTOMATED Report Rele ed Date/Time: Feb 24, 2021 11:18 AM COUNT Reporting Lab: [place] [facility] [address] [place] [facility] [place] [address] Performing Lab: [place] [facility] [address] [place] [facility] [place] [address] CBC NO ERYTHROCYTE 4.61 4.23 - 04/28 Specimen Typ e: BLOOD WHITE DIFF S 5.66 /2020 No comment enter ed. [place] [#/VOLUME] Ordering Pro vider: [place] [facility] IN BLOOD BY Report Rele ased Date/Time: Feb 24, 2021 11:18 AM AUTOMATED Reporting Lab : [place] [facility] COUNT [address] [facility] [place] [address] Performing Lab: [place] [facility] [address] [facility] [place] [address] CBC NO HEMOGLOBIN 13.9 12.8 - 17 04/28 Specimen Ty pe: BLOOD WHITE DIFF [MASS/VOLUM /2020 No comment e ntered. [place] E] IN BLOOD Ordering Pr ovider: MILTON UREÑAOC Report Released Date/Time: Feb 24, 2021 11:18 AM Reporting Lab: [place] [facility] [address] [facility] [place] [address] Performing Lab: [place] [facility] [address] [place] [facility] [place] [address] CBC NO HEMATOCRIT 43.6 39.2 - 04/28 Specimen Type : BLOOD WHITE DIFF [VOLUME 50.4 No comment enter ed. [place] FRACTION] Ordering Prov ider: [place] UREÑA [facility] OF BLOOD BY Report Rele ased Date/Time: Feb 24, 2021 11:18 AM AUTOMATED Reporting Lab : [place] [facility] COUNT [address] [facility] [place] [address] Performing Lab: [place] [facility] [address] [place] [facility] [place] [address] CBC NO MCV 94.6 82 - 99 04/28 Specimen Type: B LOOD WHITE DIFF [ENTITIC /2020 No comment ente red. [place] VOLUME] BY Ordering Pro vider: MILTON UREÑAOC AUTOMATED Report Releas ed Date/Time: Feb 24, 2021 11:18 AM COUNT Reporting Lab: [place] [facility] [address] [facility] [place] [address] Performing Lab: [place] [facility] [address] [facility] [place] [address] CBC NO MCH 30.2 26.2 - 04/28 Specimen Type: B LOOD WHITE DIFF [ENTITIC 32.6 /2020 No comment ente red. [place] MASS] BY Ordering Provi adrian: MILTON UREÑA AUTOMATED Report Releas ed Date/Time: Feb 24, 2021 11:18 AM COUNT Reporting Lab: [place] [facility] [address] [place] [facility] [place] [address] Performing Lab: [place] [facility] [address] [place] [facility] [place] [address] CBC NO MCHC 31.9 30.8 - 04/28 Specimen Type: B LOOD WHITE DIFF [MASS/VOLUM 35.1 /2020 No comment e ntered. [place] E] BY Ordering Provid er: MILTON UREÑA AUTOMATED Report Releas ed Date/Time: Feb 24, 2021 11:18 AM COUNT Reporting Lab: [place] [facility] [address] [place] [facility] [place] [address] Performing Lab: [place] [facility] [address] [place] [facility] [place] [address] CBC NO PLATELETS 141 140 - 360 04/28 Specimen Typ e: BLOOD WHITE DIFF [#/VOLUME] /2020 No comment en tered. [place] IN BLOOD BY Ordering Pr ovider: MILTON UREÑA AUTOMATED Report Releas ed Date/Time: Feb 24, 2021 11:18 AM COUNT Reporting Lab: [place] [facility] [address] [place] [facility] [place] [address] Performing Lab: [place] [facility] [address] [place] [facility] [place] [address] CBC NO PLATELET 12.1 9.2 - 12.4 04/28 Specimen Typ e: BLOOD WHITE DIFF MEAN VOLUME /2020 No comment e ntered. [place] [ENTITIC Ordering Provi adrian: MILTON UREÑAOC VOLUME] IN Report Relea sed Date/Time: Feb 24, 2021 11:18 AM BLOOD BY Reporting Lab: [place] [facility] AUTOMATED [address] [place] [facility] [place] [address] COUNT Performing Lab: [place] [facility] [address] [place] [facility] [place] [address] CBC NO ERYTHROCYTE 15.0 12.0 - 04/28 Specimen Typ e: BLOOD WHITE DIFF DISTRIBUTIO 16.0 /2020 No comment e ntered. [place] N WIDTH Ordering Provid er: MILTON UREÑAOC [RATIO] BY Report Relea sed Date/Time: Feb 24, 2021 11:18 AM AUTOMATED Reporting Lab : [place] [facility] COUNT [address] [place] [facility] [place] [address] Performing Lab: [place] [facility] [address] [place] [facility] [place] [address] CREATININ CREATININE 1.37 0.5 - 1.5 02/22 Specimen Type: PLASMA WHITE E WITH [MASS/VOLUM /2020 Comment: Fo r eGFR: Race unknown, if multiply result by 1.210 Tests performed on [employer] (405) SN:[id number] [place] eGFR E] IN SERUM Ordering Pr ovider: MILTON UREÑ[facility] PANEL OR PLASMA Report Releas ed Date/Time: Dec 20, 2020 02:24 PM Reporting Lab: [place] [facility] [address] [place] [facility] [place] [address] Performing Lab: [place] [facility] [address] [place] [facility] [place] [address] CREATININ GLOMERULAR 51 60 02/22 L Specimen Ty pe: PLASMA WHITE E WITH FILTRATION /2020 Comment: For eGFR: Race unknown, if multiply result by 1.210 Tests performed on [employer] (405) SN:[id number] [place] eGFR RATE/1.73 Ordering Prov ider: [place] UREÑ[facility]ROC PANEL SQ Report Released Date/Time: Dec 20, 2020 02:24 PM M.PREDICTED Reporting L ab: [place] [facility] [VOLUME [address] [place] [facility] [place] [address] RATE/AREA] Performing L ab: [place] [facility] IN SERUM OR [address] [place] [facility] [place] [address] PLASMA BY CREATININE- BASED FORMULA (MDRD) CBC NO LEUKOCYTES 6.8 4.5 - 11.0 02/22 Specimen T ype: BLOOD WHITE DIFF [#/VOLUME] /2020 No comment en tered. [place] IN BLOOD BY Ordering Pr ovider: [facility] [facility] AUTOMATED Report Releas ed Date/Time: Dec 20, 2020 02:24 PM COUNT Reporting Lab: [place] [facility] [address] [facility] [address] Performing Lab: [place] [facility] [address] [place] [facility] [place] [address] CBC NO ERYTHROCYTE 5.03 4.23 - 08 Specimen Typ e: BLOOD WHITE DIFF S 5.66 /2020 No comment enter ed. [place] [#/VOLUME] Ordering Pro vider: MILTON UREÑ[facility] IN BLOOD BY Report Rele ased Date/Time: Dec 20, 2020 02:24 PM AUTOMATED Reporting Lab : [place] [facility] COUNT [address] [facility] [address] Performing Lab: [place] [facility] [address] [facility] [address] CBC NO HEMOGLOBIN 14.9 12.8 - 17 02/22 Specimen Ty pe: BLOOD WHITE DIFF [MASS/VOLUM /2020 No comment e ntered. [place] E] IN BLOOD Ordering Pr ovider: MILTON UREÑA Report Released Date/Time: Dec 20, 2020 02:24 PM Reporting Lab: [place] [facility] [address] [place] [facility] [place] [address] Performing Lab: [place] [facility] [address] [place] [facility] [place] [address] CBC NO HEMATOCRIT 46.7 39.2 - 02/22 Specimen Type : BLOOD WHITE DIFF [VOLUME 50.4 No comment enter ed. [place] FRACTION] Ordering Prov ider: MILTON UREÑAOC OF BLOOD BY Report Rele ased Date/Time: Dec 20, 2020 02:24 PM AUTOMATED Reporting Lab : [place] [facility] COUNT [address] [place] [facility] [place] [address] Performing Lab: [place] [facility] [address] [place] [facility] [place] [address] CBC NO MCV 92.8 82 - 99 02/22 Specimen Type: B LOOD WHITE DIFF [ENTITIC /2020 No comment ente red. [place] VOLUME] BY Ordering Pro vider: MILTON UREÑAOC AUTOMATED Report Releas ed Date/Time: Dec 20, 2020 02:24 PM COUNT Reporting Lab: [place] [facility] [address] [facility] [address] Performing Lab: [place] [facility] [address] [facility] [address] CBC NO MCH 29.6 26.2 - 08 Specimen Type: B LOOD WHITE DIFF [ENTITIC 32.6 /2020 No comment ente red. [place] MASS] BY Ordering Provi adrian: MILTON UREÑA AUTOMATED Report Releas ed Date/Time: Dec 20, 2020 02:24 PM COUNT Reporting Lab: [place] [facility] [address] [facility] [address] Performing Lab: [place] [facility] [address] [facility] [address] CBC NO MCHC 31.9 30.8 - 02/22 Specimen Type: B LOOD WHITE DIFF [MASS/VOLUM 35.1 /2020 No comment e ntered. [place] E] BY Ordering Provid er: MILTON UREÑA AUTOMATED Report Releas ed Date/Time: Dec 20, 2020 02:24 PM COUNT Reporting Lab: [place] [facility] [address] [facility] [address] Performing Lab: [place] [facility] [address] [facility] [address] CBC NO PLATELETS 159 140 - 360 08 Specimen Typ e: BLOOD WHITE DIFF [#/VOLUME] /2020 No comment en tered. [place] IN BLOOD BY Ordering Pr ovider: MILTON UREÑA AUTOMATED Report Releas ed Date/Time: Dec 20, 2020 02:24 PM COUNT Reporting Lab: [place] [facility] [address] [facility] [address] Performing Lab : [place] [facility] [address] [facility] [address] CBC NO PLATELET 13.0 9.2 - 12.4 08/24 H Specimen Typ e: BLOOD WHITE DIFF MEAN VOLUME /2020 No comment e ntered. [place] [ENTITIC Ordering Provi adrian: MILTON UREÑA VOLUME] IN Report Relea sed Date/Time: Dec 20, 2020 02:24 PM BLOOD BY Reporting Lab: [facility] [address] [facility] [address] COUNT Performing Lab: [facility] [address] [facility] [address] CBC NO ERYTHROCYTE 14.6 12.0 - 0824 Specimen Typ e: BLOOD WHITE DIFF DISTRIBUTIO 16.0 No comment e ntered. [place] N WIDTH Ordering Provid er: [facility]A [facility] [RATIO] BY Report Relea sed Date/Time: Dec 20, 2020 02:24 PM AUTOMATED Reporting Lab : [facility] COUNT [address] [facility] [address] Performing Lab: [facility] [address] [facility] [address] P4 UREA 20 7 - 25 08 Specimen Type: P LASMA ST. GLU,BUN,C NITROGEN /2020 Comment: For eGFR: Race unknown, if multiply result by 1.210 Tests performed on [employer] (405) SN:[id number] IVORY BECKETT [MASS/VOLUM Ordering Provider: GRETCHEN PEREZ CA E] IN SERUM Report Rele ased Date/Time: Feb 22, 2021 10:13 AM OR PLASMA Reporting Lab : [facility] [address] [facility] [address] Performing Lab: [facility] [address] [facility] [address] P4 SODIUM 133 135 - 145 08/24 L Specimen Type: PLASMA ST. GLU,BUN,C [MOLES/VOLU /2020 Comment: For eGFR: Race unknown, if multiply result by 1.210 Tests performed on [employer] (405) SN:[id number] IVORY BECKETT ME] IN Ordering Prov ider: GRETCHEN PEREZ CA SERUM OR Report Release d Date/Time: Feb 22, 2021 10:13 AM PLASMA Reporting Lab: [facility] [address] [facility] [address] Performing Lab: [facility] [address] [facility] [address] P4 POTASSIUM 4.5 3.5 - 5.0 02/22 Specimen Typ e: PLASMA ST. GLU,BUN,C [MOLES/VOLU /2020 Comment: For eGFR: Race unknown, if multiply result by 1.210 Tests performed on [employer] (405) SN:[id number]] IN Ordering Prov ider: GRETCHEN PEREZ CA SERUM OR Report Release d Date/Time: Feb 22, 2021 10:13 AM PLASMA Reporting Lab: [facility] [address] [facility] [place] [address] Performing Lab: [facility] [address] [place] [facility] [place] [address] P4 CHLORIDE 102 100 - 110 02/22 Specimen Type : PLASMA ST. GLU,BUN,C [MOLES/VOLU /2020 Comment: For eGFR: Race unknown, if multiply result by 1.210 Tests performed on [employer] (405) SN:[id number]] IN Ordering Prov ider: GRETCHEN PEREZ CA SERUM OR Report Release d Date/Time: Feb 22, 2021 10:13 AM PLASMA Reporting Lab: [facility] [address] [facility] [place] [address] Performing Lab: [facility] [address] [facility] [place] [address] P4 CARBON 21 20 - 30 02/22 Specimen Type: P LASMA ST. GLU,BUN,C DIOXIDE, /2020 Comment: For eGFR: Race unknown, if multiply result by 1.210 Tests performed on [employer] (405) SN:[id number] IVORY BECKETT [facility] Ordering Prov ider: GRETCHEN PEREZ S,CA [MOLES/VOLU Report Rele ased Date/Time: Feb 22, 2021 10:[address]] IN Reporting Lab: [facility] SERUM OR [address] [place] [facility] [place] [place] [address] PLASMA Performing Lab: [facility] [address] [place] [facility] [place] [address] P4 ANION GAP 10 4 - 16 02/22 Specimen Type: PLASMA ST. GLU,BUN,C IN SERUM OR /2020 Comment: For eGFR: Race unknown, if multiply result by 1.210 Tests performed on [employer] (405) SN:[id number] MARCELA NYELYTE PLASMA Ordering Prov ider: GRETCHEN PEREZ CA Report Released Date/Time: Feb 22, 2021 10:13 AM Reporting Lab: [facility] [address] [facility] [address] [facility] [address] [facility] [address] P4 GLUCOSE 106 65 - 100 08/24 H Specimen Type: PLASMA ST. GLU,BUN,C [MASS/VOLUM /2020 Comment: For eGFR: Race unknown, if multiply result by 1.210 Tests performed on [employer] (405) SN:[id number] MARCELA LOPEZATLYTE E] IN SERUM Ordering Provider: GRETCHEN PEREZ CA OR PLASMA Report Releas ed Date/Time: Feb 22, 2021 10:13 AM Reporting Lab: [facility] [address] [facility] [address] Performing Lab: [facility] [address] [facility] [address] P4 CREATININE 1.37 0.5 - 1.5 02/22 Specimen Ty pe: PLASMA ST. GLU,BUN,C [MASS/VOLUM /2020 Comment: For eGFR: Race unknown, if multiply result by 1.210 Tests performed on [employer] (405) SN:[id number] MARCELA NYELYTE E] IN SERUM Ordering Provider: GRETCHEN PEREZ CA OR PLASMA Report Releas ed Date/Time: Feb 22, 2021 10:13 AM Reporting Lab: [facility] [address] [facility] [address] Performing Lab: [facility] [address] [facility] [address] P4 CALCIUM 9.6 8.5 - 10.5 02/22 Specimen Type : PLASMA ST. GLU,BUN,C [MASS/VOLUM /2020 Comment: For eGFR: Race unknown, if multiply result by 1.210 Tests performed on [employer] (405) SN:[id number] MARCELA NYELYTE E] IN SERUM Ordering Provider: ANA,GRETCHEN CBOC S,CA OR PLASMA Report Releas ed Date/Time: Feb 22, 2021 10:13 AM Reporting Lab: [facility] [address] [facility] [address] Performing Lab: [place] [facility] [address] [facility] [address] P4 GLOMERULAR 51 60 02/22 L Specimen Type : PLASMA ST. GLU,BUN,C FILTRATION /2020 Comment: F or eGFR: Race unknown, if multiply result by 1.210 Tests performed on [employer] (405) SN:[id number] MARCELA REAT,LYTE RATE/1.73 Ordering Pr ovider: GRETCHEN PEREZ CBOC S,CA SQ Report Released Date/Time: Feb 22, 2021 10:13 AM M.PREDICTED Reporting L ab: [facility] [place] [facility] [VOLUME [address] [facility] [address] RATE/AREA] Performing L ab: [facility] IN SERUM OR [address] [facility] [address] PLASMA BY CREATININE- BASED FORMULA (MDRD) LIVER PROTEIN 8.0 6.0 - 8.5 02/22 Specimen Type: PLASMA ST. PROFILE [MASS/VOLUM /2020 Comment: Fo r eGFR: Race unknown, if multiply result by 1.210 Tests performed on [employer] (405) SN:[id number] MARCELA Zhao] IN SERUM Ordering Pr ovider: GRETCHEN PEREZ CBOC OR PLASMA Report Releas ed Date/Time: Feb 22, 2021 10:13 AM Reporting Lab: [facility] [address] [facility] [address] Performing Lab: [facility] [address] [facility] [address] LIVER ALBUMIN 4.0 3.2 - 5.0 02/22 Specimen Type: PLASMA ST. PROFILE [MASS/VOLUM /2020 Comment: Fo r eGFR: Race unknown, if multiply result by 1.210 Tests performed on [employer] (405) SN:[id number] MARCELA E] IN SERUM Ordering Pr ovider: GRETCHEN PEREZ OR PLASMA Report Releas ed Date/Time: Feb 22, 2021 10:13 AM Reporting Lab: [facility] [address] [facility] [address] Performing Lab: [facility] [address] [place] [facility] [place] [address] LIVER BILIRUBIN.T 0.6 0.2 - 1.2 02/22 Specimen T ype: PLASMA ST. PROFILE OTAL /2020 Comment: For eG FR: Race unknown, if multiply result by 1.210 Tests performed on [employer] (405) SN:[id number] [facility] [MASS/VOLUM Ordering Pr ovider: GRETCHEN PEREZ E] IN SERUM Report Rele ased Date/Time: Feb 22, 2021 10:13 AM OR PLASMA Reporting Lab : [facility] [address] [facility] [address] Per[facility]: [facility] [address] [facility] [address] LIVER ALKALINE 75 40 - 150 02/22 Specimen Type: PLASMA ST. PROFILE PHOSPHATASE /2020 Comment: Fo r eGFR: Race unknown, if multiply result by 1.210 Tests performed on [employer] (405) SN:[id number] [facility] [ENZYMATIC Ordering Pro vider: GRETCHEN PEREZ ACTIVITY/VO Report Rele ased Date/Time: Feb 22, 2021 10:13 AM LUME] IN Reporting Lab[facility] [address] [facility] [address] PLASMA Performing Lab: [facility] [address] [place] [facility] [place] [address] LIVER ALANINE 16 7 - 52 02/22 Specimen Type: P LASMA ST. PROFILE AMINOTRANSF Comment: Fo r eGFR: Race unknown, if multiply result by 1.210 Tests performed on [employer] (405) SN:[id number] [facility] ERASE Ordering Provid er: GRETCHEN PEREZ [ENZYMATIC Report Relea sed Date/Time: Feb 22, 2021 10:13 AM ACTIVITY/VO Reporting L ab: [facility] LUME] IN [address] [facility] [address] SERUM OR Performing Lab : [facility] [address] [place] [facility] [place] [address] LIVER ASPARTATE 17 5 - 34 02/22 Specimen Type: PLASMA ST. PROFILE AMINOTRANSF Comment: Fo r eGFR: Race unknown, if multiply result by 1.210 Tests performed on [employer] (405) SN:[id number] [facility] ERASE Ordering Provid er: GRETCHEN PEREZ [ENZYMATIC Report Relea sed Date/Time: Feb 22, 2021 10:13 AM ACTIVITY/VO Reporting L ab: [facility] LUME] IN [address] [facility] [address] SERUM OR Performing Lab : [facility] PLASMA [address] [facility] [address] LIPOPROTE CHOLESTEROL 361 0 - 199 08/24 H Specimen T ype: PLASMA ST. IN [MASS/VOLUM /2020 Comment: Fo r eGFR: Race unknown, if multiply result by 1.210 Tests performed on [employer] (405) SN:[id number] [facility] CHOLESTER E] IN SERUM Ordering Provider: GRETCHEN PEREZ OL FRACT. OR PLASMA Report Rele ased Date/Time: Feb 22, 2021 10:13 AM PANEL Reporting [facility] [address] [facility] [address] [facility] [address] [facility] [address] LIPOPROTE TRIGLYCERID 170 0 - 149 08/24 H Specimen T ype: PLASMA ST. IN E Comment: For eG FR: Race unknown, if multiply result by 1.210 Tests performed on [employer] (405) SN:[id number] [facility] CHOLESTER [MASS/VOLUM Ordering Provider: GRETCHEN PEREZ OL FRACT. E] IN SERUM Report Re leased Date/Time: Feb 22, 2021 10:13 AM PANEL OR PLASMA Reporting [facility] [address] [facility] [address] [facility]forming [facility] [address] [facility] [address] LIPOPROTE CHOLESTEROL 46 40 08/24 Specimen T ype: PLASMA ST. IN IN HDL /2020 Comment: For eG FR: Race unknown, if multiply result by 1.210 Tests performed on [employer] (405) SN:[id number] [facility] CHOLESTER [MASS/VOLUM Ordering Provider: GRETCHEN PEREZ OL FRACT. E] IN SERUM Report Re leased Date/Time: Feb 22, 2021 10:13 AM PANEL OR PLASMA Reporting Lab : [facility] [address] [address] Performing Lab: [facility] [address] [address] LIPOPROTE CHOLESTEROL 281 0 - 129 08/24 H Specimen T ype: PLASMA ST. IN IN LDL /2020 Comment: For eG FR: Race unknown, if multiply result by 1.210 Tests performed on Gonsalez Clinical Education Specialist (405) SN:[id number] MARCELA CHOLESTER [MASS/VOLUM Ordering Provider: GRETCHEN PEREZ OL FRACT. E] IN SERUM Report Re leased Date/Time: Feb 22, 2021 10:13 AM PANEL OR PLASMA Reporting Lab : [facility] BY [address] [address] CALCULATION Performing [facility]: [facility] [address] [address] VITAMIN COBALAMIN 312 200 - 900 08/24 Specimen Typ e: SERUM ST. B-12 (VITAMIN /2020 Comment: Tests performed on Gonsalez Clinical Education Specialist (405) SN:[id number] MARCELA B12) Ordering Provid er: GRETCHEN PEREZ [MASS/VOLUM Report Rele ased Date/Time: Feb 22, 2021 10:13 AM E] IN SERUM Reporting L ab: [facility] OR PLASMA [address] [facility] [address] Performing Lab: [facility] [address] [address] GLYCOHEMO HEMOGLOBIN 6.2 4.0 - 5.6 08/24 H Specimen Type: BLOOD ST. GLOBIN A1C/HEMOGLO /2020 Comment: Te sts performed on Gonsalez Clinical Education Specialist (405) SN:[id number] MARCELA (A1C BIN.TOTAL Ordering Prov ider: GRETCHEN PEREZ ONLY) IN BLOOD BY Report Rele ased Date/Time: Feb 22, 2021 10:13 AM HPLC Reporting Lab: [facility] [address] [address] Performing Lab: [facility] [address] [address] VIT D CALCIFEROL 40.8 20 - 50 08/24 Specimen Type : SERUM ST. 25-OH(WRJ (VIT D2) /2020 Comment: Kirsten ts performed on Gonsalez Clinical Education Specialist (405) SN:[id number] [facility] ) [MASS/VOLUM Ordering Pr ovider: GRETCHEN PEREZ CBOC E] IN SERUM Report Rele ased Date/Time: Feb 22, 2021 10:13 AM OR PLASMA Reporting [facility] [address] [address] Performing Lab: [facility] [address] [address] Encounters Combined list of: 1) Encounters from Department of Veterans Affairs facilities going back up to the last 18 months. 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 Location Location Encounter Encounter Reason Attending ADM DC Stat us Disposition Source Details Type Number For Provider Date Date Visit Outpatient [id number] 11/11 [facility] Encounter [id number] /2020 [facility] 19996-6.40 11/11 [facility] Encounter [id number] /2020 [facility] 37238-6.40 11/11 [facility] Encounter [id number] /2020 [facility] 81998-4.40 12/13 [facility] En[facility] [id number] /2020 [facility] 06664-7.40 Diagnos ADELITA, 12/20 W JIMBO PHONE CALL [id number] is: MILTON B /2020 R IVER 11-20 MIN ICD-10- [facility] [facility] Z79.01 ocean transportation intermediary (curren t) use of anticoa gulants
wi th Provide r Comment s: Long-te rm current use of anticoa gulant (SCT 6889223 03) Outpatient [id number] 02/22 WH[facility] E Encounter [id number] /2020 [facility] OFF[facility] O/P 68762-2.40 Diagnos SÁNCHEZ PEREZ 02/22 ST. EST MOD [id number] is: MOSES /2020 JOHNSBU 30-39 MIN 29 ICD-10- RY [facility]OC CM I25.10 Athscl heart disease of [place] coronar y artery w/o ang pctrs<b r/>with Provide r Comment s: Atheros cleroti c Heart Disease of [place] Coronar y Artery without Angina Pectori s Outpatient 69264-702/24 WHIT E Encounter [id number] /20[place] [address]-2.40 Diagnos ADELITA, 02/24 WH[facility] PHARM EST [id number] is: MILTON RI DORI 15 MIN ICD-10- [facility] [facility] Z79.01 ocean transportation intermediary (curren t) use of anticoa gulants
wi Provide r Comment s: Long-te rm current use of anticoa gulant (SCT 1018923 03) Outpatient 40 03/02 WH[facility] E Encounter [id number] [facility] COMPREHENS 80915-5.40 Diagnos RADHA, 04/12 ST. ELA [id number] is: HLEY [facility] HEARING 39 ICD-10- R[facility] TEST CM H90.3 Sensori neural hearing loss, bilater al
with Provide r Comment s: Asymmet rical sensori neural hearing loss (SNOMED CT 1527703 09) Outpatient 04/15 WHIT E Encounter [id number] /2021 [facility] OFFICE O/P 14489-9.40 Diagnos PETTIGLIO, 04/28 ST. EST [id number] is: SAMMY A JOHNSB U MINIMAL 02 ICD-10- RY CBOC PROB CM Z23 Encount er for immuniz ation<b r/>with Provide r Comment s: Encount er for Immuniz ation HC PRO 11615-9.40 Diagnos NICOLA LEONE 04/29 W JIMBO PHONE CALL [id number] is: AN RIVE R 11-20 MIN ICD-10- [facility] [facility] Z79.01 ocean transportation intermediary (curren t) use of anticoa gulants
wi th Provide r Comment s: Long-te rm current use of anticoa gulant (SCT 8788627 03) Outpatient [id number] 07/04 WHIT E Encounter [id number] [facility] Outpatient [id number] 03/03 WHIT E Encounter [id number] [facility] Social History Combined list of available smoking, tobacco, and other social history [facility] 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 An actual copy of the Directive is not included. Date Advance Directive Provider Source 01/15/2019 ADVANCE DIRECTIVE DISCUSSION STEPHANIE HERNANDEZ [facility]
--- OUTSIDE RECORDS SUMMARY | 2022-05-02 11:20 | XMS_ITS | Encounter Summary ---
:1945 Author Organization [facility] Address [address] [place] [address] Care Team Providers Name Role Phone Jennifer Gomez WASTE AND BATTING WASTE CHOPPER Primary Care Provider Encounter Details Date Type Department Care Team Description 03/19/2019 Results Only [facility] Angel Luis Lott MD [phone] [address] [place], [place] [id number] (Wo rk) Social History Tobacco Use Types [...] (03/19/2019 16:47 EDT) Pathology SURGICAL PATHOLOGY REPORT [facility] Report: Reports generated via electronic interface conta in original data; CENTER LABORATORY however they are lacking the format of the original re port. SERVICES Caution should be taken when reading/interpreting unfo rmatted reports. Name: ? ANGEL LUIS HI ? Accession #: ? [id number] ? : ? 1945 (Age: 8 3) [...] Organization Address City/State/ZIP Code Phon e Number [facility] [address] [place] [address] SERVICES documented in this encounter Visit Diagnoses Not on filedocumented in this encounter Care Teams Visual And Stock Associate Relationship Specialty Start Date End Date Jennifer Gomez NP PCP - General 05/10/15 [facility] [address] [place], [place] [id number] documented as of this encounter
--- OUTSIDE RECORDS SUMMARY | 2022-05-02 11:20 | XMS_ITS | Encounter Summary ---
:1945 Author Organization [facility] Address [facility] [place] [address] Care Team Providers Name Role Phone Jovany Lott MD Primary Care Provider Encounter Details Date Type Department Care Team Description 10/08/2020 Telephone Cardiology at [facility] Faustino Garduno [place] [address] [place] [address] [phone] (Wo rk) Social History Tobacco Use Types [...] with Dr. Chou, his provider via the [facility] (see my prior clinic note). His case was reviewed by our Watchman (left atrial appendage closure team). He has anatomy that would be conducive to closure, should he wish to pursue this for stroke prevention and ability to be off anticoagulation correction. Left message for callback to our Structural Program (contact Willow Callejas APRN). If he is interested, I would be happy to offerscheduling for him. Faustino Garduno MD Pager [phone] documented in this encounter Plan of Treatment Not on filedocumented as of this encounter Visit Diagnoses Not on filedocumented in this encounter Care Teams Cardiology Clinical Consultant Relationship Specialty Start Date End Date Jovnay Lott MD PCP - General Family Medicine 02/05/20 [address] [place] [address] documented as of this encounter
--- OUTSIDE RECORDS SUMMARY | 2022-05-02 11:20 | XMS_ITS | Encounter Summary ---
:1945 Author Organization [facility] Address [address] [place] [address] Care Team Providers Name Role Phone Jennifer Gomez LATENT FINGERPRINT EXAMINER Primary Care Provider Encounter Details Date Type Department Care Team Description 01/25/2022 Lab Requisition [facility] Outr Resulting Lab, Pathology & Laboratory Provider [facility] [address] [place], [place] [address] Social History Tobacco Use Types Packs/Day Years [...] Pathologist Sig nature Salmonella PCR Negative Negative [facility] SERVICES Shigella/Enteroinvasive Negative Negative [facility] HN LAB CAMPYLOBACTER PCR Negative Negative [facility] LABORATORY SERVICES Shiga Toxin PCR Negative Negative [facility] SERVICES Specimen Feces - Specimen from rectum (specimen) Performing Organization Address City/State/ZIP Code Phon e Number [facility] [address] [place] [address] SERVICES documented in this encounter Visit Diagnoses Not on filedocumented in this encounter Care Teams Baggage Security Checker Relationship Specialty Start Date End Date Jennifer Gomez, LATENT FINGERPRINT EXAMINER PCP - General 05/10/15 [facility] [address] [place], [place] [phone] documented as of this encounter
--- OUTSIDE RECORDS SUMMARY | 2022-05-02 11:20 | XMS_ITS | Clinical Summary ---
:1945 Author Organization [facility] Address [address] [place] [address] Care Team Providers Name Role Phone WabashaJennifer vega Bunny CONCRETE LABORER Primary Care Provider Encounters Date Type Specialty [...] T3, Free 2.8 2.8 - 5.3 pg/mL [facility] TORY SERVICES Specimen Blood - Venous blood (substance) Performing Organization Address City/State/ZIP Code Phon e Number [facility] [address] [place] [address] SERVICES from Last 3 Months Insurance Payer Benefit Plan Subscriber ID Effective Phone Address Typ e / Group Dates MUTUAL OF M[employer]UAL OF [id number] 2018-Prese [id number] [place] [address] MEDICARE MEDICARE A/B [id number] 2011-Pres [address] Medicare GL ent [id number] [place] [address] (Work) Jovany Hi Personal/Family Self [address] (Home) [place] [address] (Work) Jovany Hi Personal/Family Self [address] (Home) [place] [address] (Work) Jovany Hi Personal/Family Self [address] (Home) [place] [address] (Work) Care Teams Transportation Assistant Relationship Specialty Start Date End Date Jennifer Gomez NP PCP - General 05/10/15 [facility] [address] [facility] [place] [phone]
--- OUTSIDE RECORDS SUMMARY | 2022-05-02 11:20 | XMS_ITS | Encounter Summary ---
:1945 Author Organization [facility] Address [address] [place] [address] Care Team Providers Name Role Phone Jennifer Gomez TOBACCO BALER Primary Care Provider Encounter Details Date Type Department Care Team Description 09/07/2020 Lab Requisition [facility] Outr Resulting Lab, Pathology & Laboratory Provider [facility] [address] [place], [place] [address] Social History Tobacco Use Types Packs/Day Years Used Date Never Assessed Sex Assigned at Date Recorded Not on file documented as of this encounter Plan of Treatment Not on filedocumented as of this encounter Procedures Procedure Name Priority Date/Time Associated Diagnosis Comme nts COVID-19 TEST [facility] Today 09/07/2020 9:45 EST LAB PCR COVID-19 TESTING Routine 09/07/2020 9:45 EST Resu lts for this procedure are i n the results section. documented in this encounter Results COVID-19 TEST [facility] LAB PCR (09/07/2020 9:45 EST) Specimen Swab - Entire nasopharynx (body structur e) Performing Organization Address City/State/ZIP Code Phon e Number [facility] [address] [place] [address] SERVICES COVID-19 TESTING (09/07/2020 9:45 EST) COVID-19 rt-PCR Negative Negative [facility] Result Comment: CENTER LABORATORY [...] developed and its performance characteristics determined by [facility]. It has not been cleared [...] defined by the FDA Performed on the [employer] 7 Pro RT-PCR System. Performing Lab [facility] Lab [facility] SERVICES Specimen Swab Performing Organization Address City/State/ZIP Code Phon e Number [facility] [address] [place] [address] SERVICES documented in this encounter Visit Diagnoses Not on filedocumented in this encounter Care Teams Route Deliverer Relationship Specialty Start Date End Date Jennifer Gomez NP PCP - General 05/10/15 [facility] [address] [place], [place] [address] documented as of this encounter
--- OUTSIDE RECORDS SUMMARY | 2022-05-02 11:20 | XMS_ITS | Encounter Summary ---
:1945 Author Organization [facility] Address [address] [place] [address] Care Team Providers Name Role Phone Jennifer Gomez PATIENT SCHEDULING MANAGER Primary Care Provider Encounter Details Date Type Department Care Team Description 12/22/2019 Lab Requisition [facility] Outr Resulting Lab, Pathology & Laboratory Provider [facility] [address] [place], [place] [address] Social History Tobacco Use Types Packs/Day Years Used Date Never Assessed Sex Assigned at Date Recorded Not on file documented as of this encounter Plan of Treatment Not on filedocumented as of this encounter Procedures Procedure Name Priority Date/Time Associated Diagnosis Comme nts COVID-19 TEST [facility] Today 12/22/2019 10:38 LAB PCR EDT COVID-19 TESTING Routine 12/22/2019 10:38 Results for this EDT procedure are i n the results section. documented in this encounter Results COVID-19 TEST [facility] LAB PCR (12/22/2019 10:38 EDT) Specimen Swab - Entire nasopharynx (body structur e) Performing Organization Address City/State/ZIP Code Phon e Number [facility] [address] [place] [address] SERVICES COVID-19 TESTING (12/22/2019 10:38 EDT) COVID-19 rt-PCR Negative Negative [facility] Result Comment: CENTER LABORATORY Negative results do not prec lude 2019-nCoV infection and should not be used as the sole basis for treatment or other patient management decisions. Negative results must be combined with clinical observa SERVICES tions, patient history, and epidemiological informatio n. This test was developed and its performance characteristics determined by [facility]. It has not been cleared [...] by the FDA Performed on the [employer] 7500 Fast. Performing Lab AB [address] [facility] Lab [facility] LABORATORY SERVICES Specimen Swab Performing Organization Address City/State/ZIP Code Phon e Number [facility] [address] [place] [address] SERVICES documented in this encounter Visit Diagnoses Not on filedocumented in this encounter Care Teams Stem Lead Former Relationship Specialty Start Date End Date Jennifer Gomez NP PCP - General 05/10/15 [facility] [address] [place], [place] [phone] documented as of this encounter
--- OUTSIDE RECORDS SUMMARY | 2022-05-02 11:20 | XMS_ITS | Encounter Summary ---
:1945 Author Organization [facility] [place] [address] Care Team Providers Name Role Phone Jovany Lott MD Primary Care Provider Reason for Visit Reason Onset Date Comments Follow-up 06/15/2020 Tobacco Treatment Encounter Details Date Type Department Care Team Description 06/15/2020 Telephone Vascular Surgery at [facility] Tran-melvin (Tobacco [facility] Sukumar, RN Treatment) [place] [address] Social History Tobacco Use Types Packs/Day [...] updated. Ryan Tran, MSN, RN-BC, NCTTP Tobacco Small Products I Assembler [facility] Pager #[phone] documented in this encounter Plan of Treatment Not on filedocumented as of this encounter Visit Diagnoses Not on filedocumented in this encounter Care Teams Hand Spinner Relationship Specialty Start Date End Date Jovany Lott MD PCP - General Family Medicine 02/05/20 [place] [address] documented as of this encounter
--- OUTSIDE RECORDS SUMMARY | 2022-05-02 11:20 | XMS_ITS | Encounter Summary ---
:1945 Author Organization [facility] Address [address] [place] [address] Care Team Providers Name Role Phone Jennifer Gomez BUS OPERATOR Primary Care Provider Encounter Details Date Type Department Care Team Description 04/24/2022 Lab Requisition [facility] Outr Resulting Lab, Pathology & Laboratory Provider [facility] [address] [place], [place] [address] Social History Tobacco Use Types Packs/Day Years [...] 2.8 2.8 - 5.3 pg/mL [facility] LABORA TORY SERVICES Specimen Blood - Venous blood (substance) Performing Organization Address City/State/ZIP Code Phon e Number [facility] [address] [place] [address] SERVICES documented in this encounter Visit Diagnoses Not on filedocumented in this encounter Care Teams It Technician Relationship Specialty Start Date End Date Jennifer Gomez, BUS OPERATOR PCP - General 05/10/15 [facility] [address] [place] [address] documented as of this encounter
--- OUTSIDE RECORDS SUMMARY | 2022-05-02 11:20 | XMS_ITS | Encounter Summary ---
:1945 Author Organization [facility] Address [address] [place], [place] [address] Support Name Relationship Address Phone FRANCI SALINAS Unavailable [address] [facility] [place] [address] FRANCI SALINAS Unavailable [address] [place] [address] [place] [address] Insurance Providers: All historical and current Section Date Range: From patient's date of to the date document was created.This section includes the names of all active insurance providers for the patient. Insurance Type of Plan Start of End of Group Member Insurance Policy P atient's Provider Coverage Name Policy Policy Number ID Provider's Gregg's Relationship Coverage Coverage Telephone Name to Policy Number Gregg [facility] MED[facility] PLAN- Dec 30, PLAND [id number] [phone] SALINAS WILLIE PATIENT LIFE AND PLAN D D [phone] HN ANNUITY MEDICARE MEDICARE PART Dec 30, PART B [id number] [phone] WILLIE SALINAS PATIENT (WNR) (M) B 2012 [id number] HN MEDICARE MEDICARE PART May 02, PART A [id number] [phone] RITA WILLIE PATIENT (WNR) (M) A 2010 [id number] 1 HN MUTUAL OF MEDIGAP Jul 02, PLANN [id number] [phone] WILLIE SALINAS PATIENT [employer] INS PLAN N 2019 4 0 HN CO Selected Encounter This section includes the information on record at [place] for the Encounter. Date/Time Encounter Type Encounter Description Reason Provider Source Mar 03, 2022 09:00 Outpatient Encounter [facility]ITY [facility] AM CONSULT IHE Encounter Template Text not used by [facility] Advance Directives: All historical and current Section [...] 15, 2019 ADVANCE DIRECTIVE DISCUSSION STEPH[facility]Z [facility]
--- OUTSIDE RECORDS SUMMARY | 2022-05-02 11:20 | XMS_ITS | Encounter Summary ---
:1945 Author Organization [facility] Address [address] [place] [address] Care Team Providers Name Role Phone Jennifer Gomez OPTOMETRIC TECHNOLOGIST Primary Care Provider Encounter Details Date Type Department Care Team Description 02/07/[address] [facility] Outr Resulting Lab, Pathology & Laboratory Provider [facility] [address] [place] [address] Social History Tobacco Use Types [...] (02/07/2020 7:59 EDT) COVID-19 rt-PCR NEGATIVE Negative [facility] Result Comment: LABORATORY 2019-novel Coronavirus [...] Address City/State/ZIP Code Phon e Number [facility] [place], [place] COVID-19 TESTING (02/07/2020 7:59 EDT) COVID-19 rt-PCR NEGATIVE Negative [facility] Result Comment: LABORATORY 2019-novel Coronavirus [...] Administration's Emergency Use Authorization. Performing Lab [facility] LABORATORY SERVICES Specimen Swab Performing Organization Address City/State/ZIP Code Phon e Number [facility] [address] [place] [address] SERVICES [facility]OR[facility]ORY [place], [place] documented in this encounter Visit Diagnoses Not on filedocumented in this encounter Care Teams Cartographic Aide Relationship Specialty Start Date End Date Jennifer Gomez NP PCP - General 05/10/15 [facility] [address] [place], [place] [address] documented as of this encounter
--- OUTSIDE RECORDS SUMMARY | 2022-05-02 11:21 | XMS_ITS | Encounter Summary ---
:1945 [place] [address] Care Team Providers Name Role Phone France Lam MD Primary Care Provider Encounter Details Date Type Department Care Team Description 12/29/2019 Ancillary Procedure Radiology Library at Ivette Salas [facility] STEPHANIE [facility] [place] [address] [place] [address] [phone] (Wo rk) Social History Tobacco Use Types [...] is for storage only. Alfreda Salas APRN [facility] FILM LIBRARY ORDERABLES Performing Organization Address City/State/ZIP Code Phon e Number [place], [place] documented in this encounter Visit Diagnoses Not on filedocumented in this encounter Care Teams Wax Blender Relationship Specialty Start Date End Date France Lam MD PCP - General 05/02/13 02/04/20 [address] [place] [address] documented as of this encounter
--- OUTSIDE RECORDS SUMMARY | 2022-05-02 11:21 | XMS_ITS | Encounter Summary ---
:1945 Author Organization [facility] [place] [address] Care Team Providers Name Role Phone France Lam MD Primary Care Provider Encounter Details Date Type Department Care Team Description 12/23/2019 TH Visit Neurosurgery at [facility] Alfreda Salas Intracranial (TeleHealth) [facility] C, BRAZING FURNACE [place] [address] Center [phone] [place] [address] Social History Tobacco Use Types Packs/Day Years Used Date Current Every Day Smoker Cigars 0.5 Sex Assigned at Date Recorded Not on file documented as of this encounter Progress Notes Alfreda Salas C, BRAZING FURNACE FEEDER - 12/23/2019 1:30 PM EDT Images from [...] 2 week follow up head [address] at [facility], showing slight decrease in size and [...] 3-4 weeks which may be done at [facility] with follow up TOV [facility]. Head CT 12/18/19 Assessment and Plan [...] hemorrhage documented in this encounter Care Teams Marine Extension Agent Relationship Specialty Start Date End Date France Lam MD PCP - General 05/02/13 02/04/20 [address] [place] [address] documented as of this encounter
--- OUTSIDE RECORDS SUMMARY | 2022-05-02 11:21 | XMS_ITS | Encounter Summary ---
:1945 Author Organization [facility] Address [address] [place] [address] Care Team Providers Name Role Phone France Lam MD Primary Care Provider Reason for Visit Reason Onset Date Comments TeleHealth 01/08/2020 Appt 01/09/20 Encounter Details Date Type Department Care Team Description 01/08/2020 Telephone Neurology at [facility] Efrain Nicole PA TeleHealth (Appt Critical access hospital 12/30 ) [address] [place] [address] NEUROLOGY [phone] [place], [place] [address] (Wo rk) Social History Tobacco [...] on filedocumented in this encounter Care Teams Stationary Engineer Supervisor Relationship Specialty Start Date End Date France Lam MD PCP - General 05/02/13 02/04/20 [address] [place] [address] documented as of this encounter
--- OUTSIDE RECORDS SUMMARY | 2022-05-02 11:21 | XMS_ITS | Encounter Summary ---
:1945 Author Organization [facility] [place] [address] Care Team Providers Name Role Phone France Lam MD Primary Care Provider Reason for Visit Reason Onset Date Comments TeleHealth 12/22/2019 Appt 12/23/19 Encounter Details Date Type Department Care Team Description 12/22/2019 Telephone Neurosurgery at [facility] Alfreda Salas TeleHealth (Appt [facility] Devin Sebastian, VP DIRECTOR OF CREATIVE STRATEGY 12/23/19) [place] [address] [place] [address] [place] [address] Social History Tobacco Use Types [...] on filedocumented in this encounter Care Teams College Tutor Relationship Specialty Start Date End Date France Lam MD PCP - General 05/02/13 02/04/20 [address] [place] [address] documented as of this encounter
--- OUTSIDE RECORDS SUMMARY | 2022-05-02 11:21 | XMS_ITS | Encounter Summary ---
:1945 Author Organization [facility] Address [address] [address] Care Team Providers Name Role Phone France Lam MD Primary Care Provider Encounter Details Date Type Department Care Team Description 12/18/2019 Ancillary Procedure Radiology Library at Debi Lam [facility] [address] [place] [id number] [place] [address] [phone] Social History Tobacco Use Types Packs/Day Years [...] storage only. France Lam MD [facility]M LIBRARY ORDERABLES Performing Organization Address City/State/ZIP Code Phon e Number [place], [place] documented in this encounter Visit Diagnoses Not on filedocumented in this encounter Care Teams Diesel Fitter Mechanic Relationship Specialty Start Date End Date France Lam MD PCP - General 05/02/13 02/04/20 [address] [place] [address] documented as of this encounter
--- OUTSIDE RECORDS SUMMARY | 2022-05-02 11:21 | XMS_ITS | Encounter Summary ---
:1945 Author Organization [facility] Address [facility] [address] [place] [address] Care Team Providers Name Role Phone France Lam MD Primary Care Provider Encounter Details Date Type Department Care Team Description 12/26/2019 TH Visit Cardiology at 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 [phone] [place] [address] Social History Tobacco Use Types Packs/Day Years [...] best is to differ this conversation until residential OAC strategy has been set. Specifically, if this is being treated as a provoked dvt/pe, then would re-evaluate to coordinated with OAC discontinuation. I discussed the above findings with the patient and his both of whom appear to understand and is in agreement with the plan going forward. Merlin Sanchez M.D., F.A.C.C. garnishment specialist Pager [phone] >50% of the 15 [...] failure documented in this encounter Care Teams Coal Washer Tender Relationship Specialty Start Date End Date France Lam MD PCP - General 05/02/13 02/04/20 [address] [place] [address] documented as of this encounter
--- OUTSIDE RECORDS SUMMARY | 2022-05-02 11:21 | XMS_ITS | Encounter Summary ---
:1945 Author Organization [facility] [place] [address] Care Team Providers Name Role Phone France Lam MD Primary Care Provider Encounter Details Date Type Department Care Team Description 12/08/2019 Telephone Neurosurgery at [facility] Sarah Boucher [facility] [place] [address] Social History Tobacco Use Types Packs/Day Years Used Date Current Every Day Smoker Cigars 0.5 Sex Assigned at Date Recorded Not on file documented as of this encounter Miscellaneous Notes Telephone Encounter - Elza Bradshaw - 12/22/2019 6:[address] in [facility] Telephone Encounter - Elza Bradshaw - 12/18/2019 3:43 PM EDT Left message at [facility] requesting they call back to advise if patient has been scheduled for CT. Telephone Encounter - Sarah Boucher - 12/08/2019 3:[address] order to [facility] to schedule, 12/16-12/18 for 12/22 TOV scheduled w/[facility] Telephone Encounter - Sarah Boucher - 12/08/2019 9:50 AM EDT RN, please put in CT order external=[facility] Pt's called not able to come to [facility] on 12/[address] requested to have CT locally at [facility] call w/results. documented in this encounter Plan of Treatment Not on filedocumented as of this encounter Visit Diagnoses Not on filedocumented in this encounter Care Teams Major Appliance Assembly Supervisor Relationship Specialty Start Date End Date France Lam MD PCP - General 05/02/13 02/04/20 [address] [place] [address] documented as of this encounter
--- OUTSIDE RECORDS SUMMARY | 2022-05-02 11:21 | XMS_ITS | Encounter Summary ---
:1945 Author Organization [facility] [place] [address] Care Team Providers Name Role Phone France Lam MD Primary Care Provider Encounter Details Date Type Department Care Team Description 01/16/2020 Telephone Vascular Surgery at [facility] Ryan Tran, [place] [address] Social History Tobacco Use Types Packs/Day [...] fidelina. Ryan Tran, MSN, RN-BC, NCTTP Tobacco Heating And Cooling Systems Engineer [facility] Pager #[phone] documented in this encounter Plan of Treatment Not on filedocumented as of this encounter Visit Diagnoses Not on filedocumented in this encounter Care Teams Ware Server Relationship Specialty Start Date End Date France Lam MD PCP - General 05/02/13 02/04/20 [address] [facility] [address] documented as of this encounter
--- OUTSIDE RECORDS SUMMARY | 2022-05-02 11:21 | XMS_ITS | Encounter Summary ---
:1945 Author Organization [facility] [place] [address] Care Team Providers Name Role Phone France Lam MD Primary Care Provider Encounter Details Date Type Department Care Team Description 12/24/2019 Telephone Neurosurgery at [facility] Cathy Jay [facility] [place] [address] Social History Tobacco Use Types Packs/Day [...] CT on 12/28. Faxed push request to [facility] Telephone Encounter - Elza Bradshaw - 12/25/2019 11:50 AM EDT Called [place] [facility] [place] representative I spoke with patient has plan N and does not require authorization. Order faxed with demos to [facility]. Postponing to allow time for scheduling. Telephone Encounter - Cathy Jay - 12/24/2019 11:42 AM EDT Patient needs f/u appointment(s): With [facility] on/around 01/13 3 weeks TOV, s/p Intracranial hemorrhage, [facility] prior 1. [place] [facility] [place]? ~~~~~~~~~~~~~~~~~~~~~~~~~~~~~~~~~~~~~~~~~~~~~~~~~~~~~~ Alfreda Salas APRN Sent: Maria Victoria December 23, 2019 ??7:39 PM To: P [facility] [place] Neurosurgery World Designer Jovany Hi ( ) : 1945> ?? Follow-up and Dispositions Check-out Note: Follow up head CT and TOV in 3 weeks unless vision worsens or he develops new symptoms in meantime ([facility] for CT) documented in this encounter Plan of Treatment Not on filedocumented as of this encounter Visit Diagnoses Not on filedocumented in this encounter Care Teams Indoor Landscape Architect Relationship Specialty Start Date End Date France Lam MD PCP - General 05/02/13 02/04/20 [address] [place] [address] documented as of this encounter
--- OUTSIDE RECORDS SUMMARY | 2022-05-02 11:21 | XMS_ITS | Encounter Summary ---
:1945 Author Organization [facility] Address [address] [place] [address] Care Team Providers Name Role Phone France Lam MD Primary Care Provider Encounter Details Date Type Department Care Team Description 12/30/2019 TH Visit Cardiology at [facility] Faustino Garduno Claudication from peripheral vascular disease, left ; (TeleHealth) [facility] MD Jaquan Hyperlipidemia, unspecified hyperlipidem ia type; Drive [facility] Acute ST elevation myocardia l infarction (STEMI) of inferior wall; [place], [place] Center Acute systolic CHF (congestive heart reid lure), NYHA class 3, MILVIA/AHA stage C; [address] [place], [place] Intracranial hemorrhage; [phone] Atrial fibrillation, unspecified type Social History Tobacco Use Types Packs/Day Years Used Date Current Every Day Smoker Cigars 0.5 Sex Assigned at Date Recorded Not on file documented as of this encounter Progress Notes Faustino Garduno MD - 12/30/2019 3:40 PM EDT CARDIOLOGY TELE VISIT NOTE Jovnay Hi 12/30/19 The patient consented to this being a virtual visit. HPI: Jovany iH is a 74 y.o. year old male with a past medical history significant for CAD s/p inferior STEMI [s/p MACARIO to RCA x3, residual LCx disease - non-culprit artery; s/p lytics] with complicated clinical course 11/28-12/04/19 (RV failure manifesting as cardiogenic shock, left sided diplopia with ICH, bilateral PE; paroxysmal atrial fibrillation [[id number]: 5]; PAD; HLD; HTN; smoking and PFO,who [...] a non-culprit artery. S/P DESx3 in the qzvleysg-og-abhcyl RCA. Aspiration thrombectomy performed, and integrellin bolus [...] with ICH, bilateral PE; paroxysmal atrial fibrillation [[id number]: 5]; PAD; HLD; HTN; smoking and PFO, who presents for post-discharge cardiovascular follow-up. CV issues are currently stable. Plan 1. CAD - CCS Class 0. Recovering well. He has completed 1 month of triple therapy. He may stop his aspirin, and resume clopidogrel and apixaban. Starting cardiac rehab. He wishes to pursue PCSK9 referral via the [place] system. 2. Afib - CHADS2-vasc 5, presently [...] 6 months Faustino Garduno MD Time spent: [id number] 0-5min [id number] 6-10min [id number] 11-15min [id number] 16-20min XXXX [id number] 21-30min [id number] 31-40min [id number] 40+ min documented in this encounter Plan [...] type documented in this encounter Care Teams Asphalt Tamping Machine Operator Relationship Specialty Start Date End Date France Lam MD PCP - General 05/02/13 02/04/20 [address] [place] [address] documented as of this encounter
--- OUTSIDE RECORDS SUMMARY | 2022-05-02 11:21 | XMS_ITS | Encounter Summary ---
:1945 Author Organization [facility] [place] [address] Care Team Providers Name Role Phone France Lam MD Primary Care Provider Reason for Visit Reason Onset Date Comments TeleHealth 01/12/2020 Encounter Details Date Type Department Care Team Description 01/12/2020 Telephone Neurosurgery at [facility] Alfreda Salas, TeleHealth [facility] Dev[place] [address] [facility] [phone] [place], [place] [address] (Wo rk) Social History Tobacco [...] on filedocumented in this encounter Care Teams Scrap Crusher Relationship Specialty Start Date End Date France Lam MD PCP - General 05/02/13 02/04/20 [address] [place] [address] documented as of this encounter
--- OUTSIDE RECORDS SUMMARY | 2022-05-02 11:22 | XMS_ITS | Encounter Summary ---
:1945 Author Organization [facility] [place] [address] Care Team Providers Name Role Phone France Lam MD Primary Care Provider Reason for Referral Consultation (Routine) - Specialty Diagnoses / Procedures Referred By Contact Refer red To Contact Cardiology Diagnoses Acute ST elevation myocardial infarction (STEMI) of inferior wall Darrell Glasgow MD [facility] [place] [address] Referral ID Status Reason Start Date Expiration Date Visits V isits Requested Authorized [id number] Consult, 12/08/2019 06/05/2020 1 1 Test & Treat Consultation (Routine) - Closed Specialty Diagnoses / Referred By Contact Referred To Contact Procedures Cardiac Rehabilitation Diagnoses ST elevation myocardial infarction involving right coronary artery Gretchen Yoon, Cardiac Rehab, [address] [place] [id number] Fax: Referral ID Status Reason Start Date Expiration Date Visits V isits Requested Authorized [id number] Closed Consult, 12/08/2019 06/05/2020 36 36 Test & Treat Reason for Visit Auth/Cert Specialty Diagnoses / Procedures Referred By Contact Refer red To Contact Diagnoses STEMI (ST elevation myocardial infarction) STEMI Procedures CARDIAC CATHETERIZATION Referral ID Status Reason Start Date Expiration Date Visits Requ ested Visits Authorized [id number] 1 1 Encounter Details Date Type Department Care Team Description 11/29/2019 - Hospital Encounter Cardiac Special YoungBarbra MD [facility] [place] [address] ST elevation myocardial infarction invol ving left main coronary artery; 12/08/2019 Care Unit Paris Lozano MD [facility] [place] [address] ST elevation myocardial infarction invol ving right coronary artery; [facility] Edema of upper extremity; Hospital Intracranial hemorrhage; [facility] Paroxysma l atrial fibrillation; Drive Acute pulmonary embolism, un specified pulmonary embolism type, unspecified whether acute cor pulmonale present; [place], [place] Acute ST elevat ion myocardial infarction (STEMI) of inferior wall [id number] Social History Tobacco Use Types Packs/Day Years [...] Luis Salinas Patient Age: 74 y.o. Language: Macanese Race: White Ethnicity: Not nor Admit date: [...] months on: antiplatelet therapy at discretion of ui developer with angular js - Repeat TTE in 3 months to reassess LV function - Repeat BMP in 1-2 weeks given recent start lisinopril - Referred to lipid clinic for consideration of PCSK-9 inhibitor given STEMI with intolerance of statins - Started on amiodarone this admission for recurrent rapid atrial flutter with rates ~170, recommendcontinued assessment of necessity of rhythm control strategy with ui developer with angular js - Amiodarone monitoring recommendations as below - [...] please contact your inpatient physician through the [facility] Weld Engineer . Issues after hours and on weekends [...] and Compazine. He was transferred directly to [facility] via [facility] for further management. Patient had an emergent PCI with 3 MACARIO stents placed to his RCA, with mild disease of LCX (report pending) at [facility]. He was found to be persistently hypotensive requiring Levo up to 10mcg/min. He was transferred to [facility] after the cath procedure. Bedside RHC showed CI 2.12, PAWP 11, PAP 38/15 indicating hypovolemic state. He received 1L bolus of NS with improvement of his blood pressure to 124/61. History of PAD, HLD - had side reactions to statins - so taking niacin and red rye grain. Chronic active smoker with more than 65 pack years. Family history of NC in father and two uncles. He's takingbaby [...] drip as described above. On arrival at [facility] he was taken for cardiac cath where [...] below. Electronically signed by: Angel Luis Bar[facility] ([phone]), at 11/30/2019 12:[address] Head wo [...] below. Electronically signed by: Angel Luis Barboza [facility]Hal[facility] ([phone]), at 11/30/2019 5:[address] Angiogram [place] [facility] [place] (Exam End: 11/30/2019 4:36 PM) [...] ??? Penicillins Pt doesn't remember reaction ??? Qpwmlcz-Hfv-Yza Reductase Inhibitors Stiff neck, upset stomach, back [...] medications at another hospital and then at [facility] you had a stent placed in a [...] FOR ONE MONTH AND THEN STOP. Your ui developer with angular js may tell you to start this medication again after one year. Clopidogrel (Plavix) 75 mg daily - This medication will help prevent clots from forming in your blood, which will help protect the stent that was placed in your heart vessel. TAKE THIS FOR ONE YEAR ANDTHEN DISCUSS WITH YOUR CALCIMINER WHETHER TO STOP. Amiodarone 400mg twice daily [...] follow up: Your primary care provider and ui developer with angular js will manage your blood thinner (apixaban). You do not need lab monitoring of this medication. Diet: Please consume a healthy diet low in cholesterol Follow up Appointments: 12/10/2019 at 3:10PM with PCP Angel Luis Lott Future Appointments Date Time Provider Department Center 12/23/2019 1:30 PM Alfreda Salas APRN [address] 12/26/2019 9:40 AM Merlin Sanchez MD [facility] CARD 4A [facility] 12/30/2019 3:40 PM Gretchen Yoon MD [facility] 4A [facility] Future Appointments and Orders Future Appointments and Orders Future Appointments Provider Department Dept Phone 12/23/2019 1:30 PM Alfreda Salas APRN Neurosurgery at [facility] Arrive at: Home [phone] Please do not come in for this visit. Your provider will call you at the number you provided. 12/26/2019 9:40 AM Merlin Sanchez MD Cardiology at [facility] Arrive at: Home [phone] Please do not come in for this visit. Your provider will call you at the number you provided. 12/30/2019 3:40 PM Gretchen Yoon MD Cardiology at [facility] Arrive at: Home [phone] Please do not come in for this visit. Your provider will call you at the number you provided. Future Orders Complete By Expires Referral to Cardiac Rehab [SXS102 Custom] As directed Process Instructions: If no [...] Referral to Home Health - at DISCHARGE [ONV2397 CPT(R)] As directed Process Instructions: Scheduling Instructions: Comments: DOCUMENTATION FOR VNA SERVICES PATIENT'S LOCATION: [address] [phone] (home) Fitness Plan Coordinator's Name: Self In discussion with the attending physician, it is certified that this patient is under his/her care and that MD, or an SLACK LINE YARDER, COMPOSITE BOAT BUILDER, or PA who is working directly with him/her, had a wsra-au-zovc encounter that meets the physician knfn-bv-alev encounter requirements with this patient on 12/07/2019. [...] for managing ADLs. HOME HEALTH CARE AGENCY: [facility], PHONE: [phone] FAX: [phone] Start of care: 24-48 hours after hospital [...] MD [address] / [place] [address] All A agencies which cover the area of patient's residence have been reviewed, either verbally or in writing, and patient/family have chosen the home health care agency noted. Questions: Agency name and contact information: [facility] Patient location post discharge: Home What services are requested: Registered Nurse Physical Therapy Occupational Therapy Start date: Responsible MD post discharge contact info: PCP Your PCP: France Lam MD [phone] For questions regarding this document or issues relating to this hospitalization on the Cardiology Service, please contact your inpatient physician through the [facility] Weld Engineer . Issues after hours and on weekends will be handled by the Filenet Architect on-call. Patient Instructions: Neurology Your Diagnosis: [...] appointment in the neurology clinic at [facility]. See below for the appointment time. If [...] 1:30 PM Alfreda Salas APRN Neurosurgery at [facility] Arrive at: Home [phone] Please do not come in for this visit. Your provider will call you at the number you provided. 12/26/2019 9:40 AM Merlin Sanchez MD Cardiology at [facility] Arrive at: Home [phone] Please do not come in for this visit. Your provider will call you at the number you provided. 12/30/2019 3:40 PM Gretchen Yoon MD Cardiology at [facility] Arrive at: Home [phone] Please do not come in for this visit. Your provider will call you at the number you provided. Future Orders Complete By Expires Referral to Cardiac Rehab [[id number] Custom] As directed Process Instructions: If no [...] Referral to Home Health - at DISCHARGE [KSW4955 CPT(R)] As directed Process Instructions: Scheduling Instructions: Comments: DOCUMENTATION FOR VNA SERVICES PATIENT'S LOCATION: [address] [phone] (home) Fitness Plan Coordinator's Name: Self In discussion with the attending physician, it is certified that this patient is under his/her care and that MD, or an SLACK LINE YARDER, COMPOSITE BOAT BUILDER, or PA who is working directly with him/her, had a epsj-rc-uvop encounter that meets the physician yexb-ot-qlma encounter requirements with this patient on 12/07/2019. [...] for managing ADLs. HOME HEALTH CARE AGENCY: [facility], PHONE: [phone] FAX: [phone] Start of care: 24-48 hours after hospital [...] France Lam MD [address] / [facility] [address] All A agencies which cover the area of patient's residence have been reviewed, either verbally or in writing, and patient/family have chosen the home health care agency noted. Questions: Agency name and contact information: [facility] Patient location post discharge: Home What services are requested: Registered Nurse Physical Therapy Occupational Therapy Start date: Responsible MD post discharge contact info: PCP Discharge References/Attachments Atrial Fibrillation (Macanese) Cardiac Rehabilitation (Macanese) Heart Failure (Macanese) Heart Failure: Limiting Sodium (Macanese) Hemorrhagic Stroke: General Info (Macanese) Smoking: Stopping (Macanese) Stroke Rehabilitation: General Info (Macanese) Pulmonary Embolism (Macanese) Riki Stevens MD PGY-3, Internal Medicine Cardiology S2, #0411 Associated attestation - Paris Dodd MD - 12/09/2019 4:44 PM EDT Cardiology Attending Discharge Addendum I was the assigned attending ui developer with angular js for this clinical encounter. For the purposes [...] complications include novel onset, paroxysmal atrial fibrillation [[id number]: 5] & L-sided diplopia with potential hemineglect [...] My contact information: Paris Matt MD MPH [place] [phone] (office); Pager #[phone] Email: [email or web address] documented in this encounter Discharge Instructions Patient InstructionsFiRiki de jesus MD - 12/02/2019 9:56 AM EDT Images from the original note were not included. Why you were hospitalized: You had a heart attack. You received clot-busting medications at another hospital and then at [facility] you had a stent placed in a [...] FOR ONE MONTH AND THEN STOP. Your ui developer with angular js may tell you to start this medication again after one year. Clopidogrel (Plavix) 75 mg daily - This medication will help prevent clots from forming in your blood, which will help protect the stent that was placed in your heart vessel. TAKE THIS FOR ONE YEAR ANDTHEN DISCUSS WITH YOUR CALCIMINER WHETHER TO STOP. Amiodarone 400mg twice daily [...] follow up: Your primary care provider and ui developer with angular js will manage your blood thinner (apixaban). You do not need lab monitoring of this medication. Diet: Please consume a healthy diet low in cholesterol Follow up Appointments: 12/10/2019 at 3:10PM with PCP Angel Luis Lott Future Appointments Date Time Provider Department Center 12/23/2019 1:30 PM Alfreda Salas APRN [facility] [id number] [facility] 12/26/2019 9:40 AM Merlin Sanchez MD [facility] CARD 4A [facility] 12/30/2019 3:40 PM Gretchen Yoon MD [facility] CARD 4A [facility] Future Appointments and Orders Future Appointments and Orders Future Appointments Provider Department Dept Phone 12/23/2019 1:30 PM Alfreda Salas APRN Neurosurgery at [facility] Arrive at: Home [phone] Please do not come in for this visit. Your provider will call you at the number you provided. 12/26/2019 9:40 AM Merlin Sanchez MD Cardiology at [facility] Arrive at: Home [phone] Please do not come in for this visit. Your provider will call you at the number you provided. 12/30/2019 3:40 PM Gretchen Yoon MD Cardiology at [facility] Arrive at: Home [phone] Please do not come in for this visit. Your provider will call you at the number you provided. Future Orders Complete By Expires Referral to Cardiac Rehab [[id number] Custom] As directed Process Instructions: If no [...] Referral to Home Health - at DISCHARGE [PSG1059 CPT(R)] As directed Process Instructions: Scheduling Instructions: Comments: DOCUMENTATION FOR VNA SERVICES PATIENT'S LOCATION: [address] [phone] (home) Fitness Plan Coordinator's Name: Self In discussion with the attending physician, it is certified that this patient is under his/her care and that MD, or an SLACK LINE YARDER, COMPOSITE BOAT BUILDER, or PA who is working directly with him/her, had a ennj-qv-cgym encounter that meets the physician bgjo-iw-tmee encounter requirements with this patient on 12/07/2019. [...] for managing ADLs. HOME HEALTH CARE AGENCY: [facility], PHONE: [phone] FAX: [phone] Start of care: 24-48 hours after hospital [...] MD [address] / [place] [address] All A agencies which cover the area of patient's residence have been reviewed, either verbally or in writing, and patient/family have chosen the home health care agency noted. Questions: Agency name and contact information: [facility] Patient location post discharge: Home What services are requested: Registered Nurse Physical Therapy Occupational Therapy Start date: Responsible MD post discharge contact info: PCP Your PCP: France Lam MD [phone] For questions regarding this document or issues relating to this hospitalization on the Cardiology Service, please contact your inpatient physician through the [facility] Weld Engineer . Issues after hours and on weekends will be handled by the Filenet Architect on-call. Patient Instructions: Neurology Your Diagnosis: [...] appointment in the neurology clinic at [facility]. See below for the appointment time. If you do not have an appointment, you will be called with a time/date for this appointment. ??? Primary Care Provider: Please follow up with your Primary Care Provider within one to 2 weeks ofdischarge. AttachmentsThe following attachments cannot be sent through Care Everywhere. Atrial Fibrillation (Macanese)Cardiac Rehabilitation (Macanese)Heart Failure (Macanese)Heart Failure: Limiting Sodium (Macanese)Hemorrhagic Stroke: General Info (Macanese)Smoking: Stopping (Macanese)Stroke Rehabilitation: General Info (Macanese)Pulmonary Embolism (Macanese)documented in this encounter Medications at Time of [...] consulted in the interim. Vikash Rodriguez Pager: [phone] Paris Dodd MD - 12/08/2019 8:57 AM [...] complications include novel onset, paroxysmal atrial fibrillation [FAT9IG2IBGJ: 5] & L-sided diplopia with potential hemineglect [...] consulted in the interim. Vikash Rodriguez Pager: [phone] Paris Dodd MD - 12/07/2019 9:55 AM [...] complications include novel onset, paroxysmal atrial fibrillation [BIF1HQ5QQHQ: 5] & L-sided diplopia with potential hemineglect [...] complications include novel onset, paroxysmal atrial fibrillation [TQB1DV7QDOE: 5] & L-sided diplopia with potential hemineglect [...] complications include novel onset, paroxysmal atrial fibrillation [KDG8TF3CZGS: 5] & L-sided diplopia with potential hemineglect [...] today; additional complications include paroxysmal atrial fibrillation [NHD6OO6OTQY: 4] c/b possible cardioembolic stroke, ICH from [...] length from neck/greatest diameter to back wall: DANISH 91, CAU 13: 19 mm CORTES 1, [...] a non-culprit artery. S/P DESx3 in the ycipdkgv-pw-tagopl RCA. Aspiration thrombectomy performed, and integrellin bolus [...] complications include novel onset, paroxysmal atrial fibrillation [XLC2NP4OBPX: 5] & L-sided diplopia with potential hemineglect [...] R occipital cardioembolic stroke #Paroxysmal Afib with CM0DPDHB0J score of 5 #New segmental bilateral PEs [...] Glasgow MD PGY1, Internal Medicine Cardiology S2, #2289 Associated attestation - Paris Dodd MD - 12/05/2019 2:59 PM EDT I was the assigned attending ui developer with angular js for this clinical encounter. For the purposes [...] 12/04/2019 10:36 AM EDT Office of Care Management(OCM)/Medical Or Surgical Instrument Maker(CM)/Discharge Planning Service: Cardiology S2 team CM Bernie Alexander,RN,BSN,MA,ACM pgr [phone] Reviewed record and in Cardiology Rounds with MD team,CMs, golf club manager, ASSOCIATE ACCOUNTANT. Pt is anticipated ready for d/c later today. Met w pt re d/c plan and he continues to agree with home PT/OT/RN w [facility]. His son is bringing his to pick him up together. Discussed Advance Directives and DPOAH- he states he has at home and designated his as primiary; he thought his PCP would have copy. Tel call to PCP who notes no DPOAH on file. Encouraged pt to take his AD to his PCP and to any [facility] appt for each to have on file. [...] complications include novel onset, paroxysmal atrial fibrillation [HVC5PE4ZOLD: 4] & L-sided diplopia with potential hemineglect [...] a non-culprit artery. S/P DESx3 in the mebbxbev-zd-slfxaz RCA. Aspiration thrombectomy performed, and integrellin bolus [...] complications include novel onset, paroxysmal atrial fibrillation [BJS1MC9TSIV: 5] & L-sided diplopia with potential hemineglect [...] R occipital cardioembolic stroke #Paroxysmal Afib with OL8VASMO1M score of 5 - No anticoagulation for [...] Glasgow MD PGY1, Internal Medicine Cardiology S2, #7740 I have seen the patient and reviewed [...] in my clinic. Gretchen Yoon MD Pager [phone] Derian Pascual RN - 12/03/2019 9:29 AM [...] Discharge: None Electronically signed: Derian Pascual RN, Medical Or Surgical Instrument Maker Pgr: [phone] 12/03/2019 9:29 AM Gretchen Yoon [...] complications include novel onset, paroxysmal atrial fibrillation [OWM8TO4MPRG: 4] & L-sided diplopia with potential hemineglect [...] a non-culprit artery. S/P DESx3 in the obpuixec-kb-hvveiv RCA. Aspiration thrombectomy performed, and integrellin bolus [...] complications include novel onset, paroxysmal atrial fibrillation [SPU2TD7HPAO: 5] & L-sided diplopia with potential hemineglect [...] would like to [facility] and follow up with his PCP. Patient voiced strong will to quit smoking now, understood that we have resources available for help. Plan [P]: --Neurologic-- # Concern for Left-Sided Diplopia, r/o Hemineglect # Concern for CVA, last-known well 11/29/19 - MRI showed possible cardioembolic stroke #Afib with CP4ZDZCW9P score of 5 - Stroke Team Consulted; [...] Anticoagulation/Arrhythmia # Novel Onset, Paroxsymal Atrial Fibrillation [FCJ7TR6FOYI: 5] - Hold off anticoagulation for at [...] w straight cath prn # Nutrition - [facility] Diet, 2g Na. -- Hematology/Oncology-- # Mild [...] Glasgow MD PGY1, Internal Medicine Cardiology S2, #0905 I have seen the patient and reviewed the resident's above history and I agree with the details as written. The assessment and plan were formulated in discussion with me and I agree with them as documented. Gretchen Yoon MD Pager [phone] Raul Hein RN - 12/03/2019 5:55 AM [...] Negative mcL Appearance UA Clear Clear Spec [place] UA 1.026 1.006 - 1.030 Color UA [...] PGY3 Neurology Resident 12/01/2019 Vascular Neurology Pager [phone] Neurology Attending Attestation I evaluated the patient [...] documented. Deepthi Roman MD Vascular Neurology Standard [facility] Swallow Screen: This screen is to be [...] diet as medical provider deems appropriate. Consider NON DESTRUCTIVE TESTING INSPECTOR consult for full evaluation and diet recommendations. [...] complications include novel onset, paroxysmal atrial fibrillation [XMU0WH2PDJB: 4] & L-sided diplopia with potential hemineglect [...] a non-culprit artery. S/P DESx3 in the owstinoa-xx-nimmwy RCA. Aspiration thrombectomy performed, and integrellin bolus [...] complications include novel onset, paroxysmal atrial fibrillation [ILQ4FC6IORQ: 5] & L-sided diplopia with potential hemineglect [...] Anticoagulation/Arrhythmia # Novel Onset, Paroxsymal Atrial Fibrillation [HHY4TR7RCML: 5] - Hold off anticoagulation - pending [...] tamsulosin d/t low BP. # Nutrition - [facility] Diet -- Hematology/Oncology-- # Mild Thrombocytopenia, unclear [...] Glasgow MD PGY1, Internal Medicine Cardiology S2, #3017 I have seen the patient and reviewed [...] the ICU team. Gretchen Yoon MD Pager [phone] Natalia Claros APRN - 12/02/2019 8:38 AM [...] - We are signing off. Please page [phone] with any questions or concerns. For questions please call NS pager [phone] Natalia Claros APRN 12/02/2019 8:38 AM Clinical Documentation Improvement: Active Hospital Problems Diagnosis ??? Acute ST elevation myocardial infarction (STEMI) of inferior wall ??? Intracranial hemorrhage ??? Hyperlipidemia ??? Tobacco abuse ??? Claudication from peripheral vascular disease, left Resolved Hospital Problems No resolved problems to display. Tello Hsu, [facility] - 12/02/2019 2:06 AM EDT 06/01/20 2010 [...] Scan in afternoon. Upon arrival back in [facility] placed on low flow NC at [...] complications include novel onset, paroxysmal atrial fibrillation [ZRK0UJ1ZYLQ: 4] & L-sided diplopia with potential hemineglect for which CVA evaluationto be pursued. Active Problems/Subjective: - 11/28: admitted for inferior STEMI, RV failure requiring pressor - got lytics, aspirin and plavix load, heparin gtt, and eptifibatide. 3 MACARIO stents to RCA. [place] cath - low wedge & CVP so [...] a non-culprit artery. S/P DESx3 in the zjdknxbw-zt-epwzkm RCA. Aspiration thrombectomy performed, and integrellin bolus [...] complications include novel onset, paroxysmal atrial fibrillation [SXN9CW8MMAH: 4] & L-sided diplopia with potential hemineglect [...] Anticoagulation/Arrhythmia # Novel Onset, Paroxsymal Atrial Fibrillation [VRL5XA8YICI: 4] - Obtain: TTE - Pending CVA [...] tamsulosin d/t low BP. # Nutrition - [facility] Diet -- Hematology/Oncology-- # Mild Thrombocytopenia, unclear [...] MD, PGY1 PGY3, Internal Medicine Cardiology S2, #5497 I have seen the patient and reviewed [...] down the line. Gretchen Yoon MD Pager [phone] ?? Gretchen Yoon MD Pager [phone] Natalia Claros APRN - 12/01/2019 1:33 AM [...] per primary team For questions please call [place] pager [phone] Natalia Claros APRN 12/01/2019 7:42 AM Clinical Documentation Improvement: Active Hospital Problems Diagnosis ??? Acute ST elevation myocardial infarction (STEMI) of inferior wall ??? Intracranial hemorrhage ??? Hyperlipidemia ??? Tobacco abuse ??? Claudication from peripheral vascular disease, left Resolved Hospital Problems No resolved problems to display. Tello Hsu, [facility] - 11/30/2019 8:44 PM EDT Respiratory Therapy [...] EDT Narrative:Visited in response to request for Supervisor Force Adjustment services. Pt was awake, alert, oriented and in bed. Assessment:Patient coping positively with stresses of illness/hospitalization at this time. Pt says that he is hoping to get better and pt is living with and has children and grandchildren. Pt haspurpose of life and has reason to get getter and to be with family. Outcome: Provided emotional and spiritual support and encouraging presence. Supervisor Force Adjustment services accepted.Conversation to build trusting relationship.Provided pastoral [...] complications include novel onset, paroxysmal atrial fibrillation [[id number]: 4] & L-sided diplopia with potential hemineglect for which CVA evaluationto be pursued. Active Problems/Subjective: - Overnight, CVP < 12 for which a total of 1 L IVF provided - Today AM, patient complains of subjectively reported, left-sided hemineglect with floaters and diplopia [see: exam]. - Otherwise, c/o neck pain 2/2 R IJ Elmore & L radial A line. Otherwise, denies [...] a non-culprit artery. S/P DESx3 in the bsgalmwd-yr-hogain RCA. Aspiration thrombectomy performed, and integrellin bolus [...] complications include novel onset, paroxysmal atrial fibrillation [[id number]: 4] & L-sided diplopia with potential hemineglect [...] Anticoagulation/Arrhythmia # Novel Onset, Paroxsymal Atrial Fibrillation [[id number]: 4] - Obtain: TTE to confirm rhythm [...] tamsulosin d/t low BP. # Nutrition - [facility] Diet -- Hematology/Oncology-- # Mild Thrombocytopenia, unclear [...] MD, PGY3 PGY3, Internal Medicine Cardiology S2, #[phone] I have seen the patient and reviewed [...] down the line. Gretchen Yoon MD Pager [phone] Paola Capps RN - 11/30/2019 6:57 AM EDT PT still requiring 4 of levo, several attempts to titrate down (maps in 70;s) But maps would drop toless than 65. Pt very restless in bed Raising and lowering head denies pain . Integrillin stopped [id number] when bottle complete , urine tea colored [...] PCP: France Lam MD PCP phone #: [phone] Detonator Assembler: None ID/Chief Complaint: Chest pain History of [...] and Compazine. He was transferred directly to [facility] via [facility] for further management. Patient had an emergent PCI with 3 MACARIO stents placed to his RCA, with mild disease of LCX (report pending) at [facility]. He was found to be persistently hypotensive requiring Levo up to 10mcg/min. He was transferred to [facility] after the cath procedure. Bedside RHC showed CI 2.12, PAWP 11, PAP 38/15 indicating hypovolemic state. He received 1L bolus of NS with improvement of his blood pressure to 124/61. History of PAD, HLD - had side reactions to statins - so taking niacin and red rye grain. Chronic active smoker with more than 65 pack years. Family history of NC in father and two uncles. He's takingbaby [...] ??? Penicillins Pt doesn't remember reaction ??? Hicvrsz-Far-Wtk Reductase Inhibitors Stiff neck, upset stomach, back pain Family History: Mother: Father: NC 2 Uncles with MIs Social History: Tobacco: Current active smoker 1 ppd. 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 Vitals: Last value Range last [...] in the last 7068 hours. Invalid input(s): [id number] Heme: No results for input(s): LDH, HAPTOGLOBIN, [...] OSH prior to transfer and PCI at [facility]. Massive inferior STEMI with troponin level 20, currently in CVCC due to pressor requirement. BedsideRHC demonstrated evidence of elevated right sided heart failure, but his wedge was wnl. He received 1L bolus with improvement of his blood pressure and reduction of his pressor requirement. PLAN: Admit to Cardiology, S2 Team Pager # [phone] #Inferior STEMI, LEYLA 149 - Resolving EKG [...] inferior STEMI s/p lytic therapy. Transferred to [facility] and underwent successful PCI of the RCA with MACARIO x3. Gretchen Yoon MD Pager [phone] documented in this encounter Procedure Notes Juventino [...] to the planned procedure. Hand Hygiene: The equipment service lead did perform hand hygiene prior to arterial [...] a suspected line-associated infection. Location of Procedure: [facility] Risks and Benefits: The risks and [...] to the planned procedure. Hand Hygiene: The equipment service lead did perform hand hygiene prior to line [...] side:right An Introducer (PSI Kit) was used. [place]. Insertion Side: right. Insertion Site: internal jugular. Catheter Details: Number of Lumens: 1 Catheter Type: heparin-coated The line was placed over a guidewire. Confirmation of Venous Placement: Venous placement was confirmed by transducing the pressure. Introducer Insertion Attempts: 1 Comments: Floating the Elmore-Mo Catheter Attempts: 1 Comments: Sterile Dressing: Biopatch [...] Miscellaneous Notes Plan of Care - Russell Vnetura RN - 12/08/2019 2:59 AM EDT Problem: [...] better pt back in SR. Please page [phone] for any more cares or concerns Plan [...] complications include novel onset, paroxysmal atrial fibrillation [[id number]: 5]& L-sided diplopia with potential hemineglect for [...] Total Evaluation Minutes, Occupational Therapy: 10 Pager: [phone] FRANCINE Nuñez Occupational Therapy Rehabilitation Department Plan [...] complications include novel onset, paroxysmal atrial fibrillation [[id number]: 5] & L-sided diplopia with potential hemineglect [...] hand rails). Baseline Mobility: Independent. Drives. Shares rn ante partum with his , however her mobility is [...] plan as stated. Time IN / OUT: 5262-8245 Total Evaluation Minutes, Physical Therapy: 15(gtx1) Barbara Baldwin, PT Pager: [phone] Physical Therapy Inpatient Rehabilitation Department Plan of [...] Health. Consult refused. Romain Tran, MSN, RN-, [facility] [employer] [facility] Pager #[phone] Plan of Care - Romani Oglesby OT - 12/03/2019 1:19 PM EDT [...] complications include novel onset, paroxysmal atrial fibrillation [[id number]: 5] & L-sided diplopia with potential hemineglect [...] and measurable assessment of functional outcome. Pager: [phone] ROMAIN OGLESBY OT 12/03/2019 Occupational Therapy Rehabilitation [...] complications include novel onset, paroxysmal atrial fibrillation [[id number]: 5] & L-sided diplopia with potential hemineglect [...] hand rails). Baseline Mobility: Independent. Drives. Shares rn ante partum with his , however her mobility is [...] in this evaluation. Time IN / OUT: 1335-3381 Total Evaluation Minutes, Physical Therapy: 25(eval, gtx1) Barbara Baldwin, PT Pager: [phone] Physical Therapy Inpatient Rehabilitation Department Consult Note [...] Please contact JOHANNA NOBLES RN on pager [phone] or the wound care team at [phone] or pager [phone] skin and wound care concerns or questions. [...] Sal[place] would be surrogate decision maker per [place] surrogate decision making law. Any patient receiving carspousee at [facility] must abide by [place] law. The hierarchy for surrogate decisionmaking is: [...] (i) The agent with financial power of county attorney or a conservator appointed in accordance [...] Insurance: N/A Prescription Coverage: Yes Preferred Pharmacy: [place], [place] Other: No Primary Care Provider: France Lam MD [phone] Patient/Caregiver Goals of Treatment: Return home Potential Needs for Transition of Care: Rehab/SNF: Based on discussions with the multi-disciplinary healthcare team, the patient would benefit from SNF level of care at discharge. ?? I have met with the patient to discuss discharge planning needs. I have provided the [facility], Officeof Care Management letter from the Technical Engineer pertaining to rehab referrals. I have also provided a letter describing our affiliations within the [facility] and educated them about their [...] patient have requested referrals to: ?? 1. [facility] [address] [place] [id number] ?? [address] [place] [address] Note routed to Blending Operator who will communicate referrals to facilities [...] referrals are placed. Patient requests referral to [facility] [place]. PHONE: [phone] FAX: [phone] Referral routed to the Blending Operator for matching with agency/vendor and to [...] Insured w/ Medicare. Gets medications filled at [facility] in [place], [place]. Son to transport at discharge Plan: Discharge dispo depending on patient's physical recovery; SNF vs home w/ VNA. A member of the Care Management team will continue to monitor progress, follow for continuity of care and assist with transition of care planning. Derian Pascual, NIURKA Pager: [phone] Plan of Care - Estefani Baeza RN [...] ??? Penicillins Pt doesn't remember reaction ??? Czpmefv-Fws-Jzf Reductase Inhibitors Stiff neck, upset stomach, back [...] noncontrast head CT and CT of the [place] at 1600 hrs. We will [...] vision concerning for stroke. Patient presented to [facility] in transfer for a STEMI after presenting [...] ??? Penicillins Pt doesn't remember reaction ??? Oiqocco-Cnn-Kyd Reductase Inhibitors Stiff neck, upset stomach, back [...] L Elbow flexion 5/5 R, 5/5 L Computer Graphics Illustrator LE: 5/5 R, 5/5 L Hip flexion [...] PGY3 Neurology Resident 11/30/2019 Vascular Neurology Pager [phone] Standard [facility] Swallow Screen: This screen is to be [...] diet as medical provider deems appropriate. Consider NON DESTRUCTIVE TESTING INSPECTOR consult for full evaluation and diet recommendations. [...] Afib admitted s/p thrombolysis and Cath-Stent to [facility] who developed R sided visual [...] Evan Mejia MD Department of Neurology [facility] Brief Op Note - Gretchen Yoon MD - 11/29/2019 8:38 PM EDT Brief Operative Note Patient Name: Angel Luis Salinas : [id number] MR#: [id number] Case Date: 11/29/2019 Surgeon: Surgeon(s) and Role: * Gretchen Yoon MD - Primary * Aidan Ward MD - Fellow Preoperative diagnosis: Inferior STEMI Postoperative diagnosis: Inferior STEMI Procedure(s) (LRB): CARDIAC CATHETERIZATION (N/A) Findings: Discrete 90% stenosis in the prox-to-mid RCA. Severe diffuse disease in the distal vessel. Discrete LCX stenosis in a non-culprit artery. S/P DESx3 in the whlhxqzd-qo-baziap RCA. Aspiration thrombectomy performed, and integrellin bolus [...] are i n the results section. CT [place] [facility] STAT 11/30/2019 4:36 Res [...] athologist Signature Potassium 3.9 3.5 - 5.0 [facility] mmol/L [facility] LABOR[facility] Comment: Please note: ??Patients with WBC [...] Organization Address City/State/[place] [address] (ABNORMAL) Hemogram (12/08/2019 12:39 PM EDT) Analysis Performed At Patho logist Time Signature WBC 9.9 (H) 4.0 - 9.5 [facility] LABORATORY RBC 4.51 (L) 4.58 - [place] D[place] 5.54 [facility] x10(6)/[facility] LABORATORY Hemoglobin 13.0 (L) 13.7 - [place] 16.5 gm/dL [facility]OR[facility]ORY Hematocrit 40.5 40.5 - [place] 48.5 % [facility] LABORATORY MCV 89.8 82.9 - [facility] DOV 93.1 [facility] LABORATORY MCH 28.8 27.5 - [place] 32.1 pg [facility] LABORATORY MCHC 32.1 32.0 - [place] 35.7 gm/dL [facility] LAB[facility]ORY Platelets 214 145 - 357 [facility] x10(3)/[facility] LABORATORY RDWSD 49.2 (H) 36.0 - [place] 45.0 [facility] LABORATORY RDWCV 15.1 (H) 11.4 - [place] 13.8 % [facility] LABORATORY MPV 12.1 7.6 - 12.9 [facility] nRBC % Auto 0.0 % [facility] LAB[facility] nRBC Abs Auto 0.000 0.000 - [place] 0.000 [facility] x10(3)/[facility] LABORATORY Specimen Anatomical Collection Method Collection Time Receive d Time (Source) Location / / Volume Laterality Blood specimen 12/08/2019 12:39 0 (specimen) PM EDT 12:47 PM EDT Resulting Agency Comment Spec In Lab Gretchen Yoon MD HEMATOLOGY ORDERABLES Performing Organization Address City/State/ZIP Code Phon e Number [address] Hepatic Function Panel (12/08/2019 6:28 AM EDT) athologist Signature Total Protein 6.6 6.1 - 8.0 [facility] DOV gm/dL [facility]ORY Albumin 3.2 3.2 - 5.2 [place] gm/dL [facility] AST 18 0 - 39 [place] unit/L [facility] ALT 13 0 - 55 [place] unit/L [facility] Alk Phos 64 40 - 130 [facility] DOV unit/L [facility] LAB[facility]ORY Total 0.4 0.2 - 1.3 [facility] [facility] Bilirubin mg/dL [facility] LABOR[facility]ORY Bili, Direct 0.1 0.0 - 0.3 [facility] DOV mg/dL [facility] LABORATORY Specimen Anatomical Collection Method Collection Time Receive d Time (Source) Location / / Volume Laterality Blood specimen Venous Draw / 12/08/2019 6:28 AM 2019 6:36 (specimen) Unknown EDT AM EDT Resulting Agency Comment Spec In Lab Riki Stevens MD CHEMISTRY ORDERABLES Performing Organization Address City/[facility]/ZIP Code Phon e Number [address] (ABNORMAL) TSH (12/08/2019 6:28 AM EDT) athologist Signature TSH 5.27 (H) 0.27 - 4.20 [facility] DOV mcIU/mL [facility] LABOR[facility]ORY Specimen Anatomical Collection Method Collection Time Receive d Time (Source) Location / / Volume Laterality Blood specimen Venous Draw / 12/08/2019 6:28 AM 2019 6:36 (specimen) Unknown EDT AM EDT Resulting Agency Comment Spec In Lab Darrell Glasgow MD CHEMISTRY ORDERABLES Performing Organization Address City/[facility]/ZIP Code Phon e Number [address] Potassium (12/08/2019 6:28 AM EDT) P athologist Signature Potassium 4.2 3.5 - 5.0 [facility] mmol/L [facility] Comment: Please note: ??Patients with WBC [...] Organization Address City/State/ZIP Code Phon e Number [place] [id number] (ABNORMAL) Differential, Automated (12/08/2019 12:43 AM EDT) Patholo gist Method Time Signature Neutrophils % 60.7 % [facility] LABORATORY Neutr Abs (ANC) 6.81 (H) 1.70 - [facility] 6.10 [facility] x10(3)/[facility] LABORATORY Lymphocytes % 23.4 % [facility] LABORATORY Lymphocytes Abs 2.6 0.9 - 3.2 [facility] x10(3)/[facility] LABORATORY Monocytes % 10.0 % [facility] LABORATORY Monocyte Abs 1.1 (H) 0.3 - 0.9 [facility] x10(3)/[facility] LABORATORY Eosinophils % 3.7 % [facility] Eosinophils Abs 0.4 0.0 - 0.4 [facility] x10(3)/[facility] LABORATORY Basophils % 1.2 % [facility] LAB[facility]ORY Basophils Abs 0.1 0.0 - 0.1 [facility] x10(3)/[facility] LABORATORY Immature Gran % 1.00 % [...] Organization Address City/State/[place] [address] (ABNORMAL) Hemogram (12/08/2019 12:43 AM EDT) Analysis Performed At Patho logist Time Signature WBC 11.2 (H) 4.0 - 9.5 [facility] x10(3)/[facility] LABORATORY RBC 4.46 (L) 4.58 - [facility] DOV 5.54 [facility] x10(6)/[facility] LABORATORY Hemoglobin 13.1 (L) 13.7 - [facility] 16.5 gm/dL [facility] LABORATORY Hematocrit 40.5 40.5 - [facility] DOV 48.5 % [facility] LABORATORY MCV 90.8 82.9 - [facility] 93.1 [facility] LABORATORY MCH 29.4 27.5 - [facility] DOV 32.1 pg [facility] LABORATORY MCHC 32.3 32.0 - [facility] DOV 35.7 gm/dL [facility] LABORATORY Platelets 215 145 - 357 [facility] x10(3)/[facility] LABORATORY RDWSD 49.8 (H) 36.0 - [facility] DOV 45.0 [facility] LABORATORY RDWCV 15.2 (H) 11.4 - [facility] DOV 13.8 % [facility] LABORATORY MPV 12.3 7.6 - 12.9 [facility] LABORATORY nRBC % Auto 0.0 % [facility] LABORATORY nRBC Abs Auto 0.000 0.000 - [facility] DOV 0.000 [facility] x10(3)/[facility] LABORATORY Specimen Anatomical Collection Method Collection Time Receive d Time (Source) Location / / Volume Laterality Blood specimen 12/08/2019 12:43 0 (specimen) AM EDT 12:52 AM EDT Resulting Agency Comment Spec In Lab Riki Stevens MD HEMATOLOGY ORDERABLES Performing Organization Address City/State/ZIP Code Phon e Number [address] Magnesium (12/08/2019 12:43 AM EDT) athologist Signature Magnesium 1.01 0.69 - 1.07 [facility] mmol/L [facility] LABORATORY Specimen Anatomical Collection Method Collection Time Receive d Time (Source) Location / / Volume Laterality Blood specimen 12/08/2019 12:43 0 (specimen) AM EDT 12:52 AM EDT Resulting Agency Comment Spec In Lab Gretchen Yoon MD CHEMISTRY ORDERABLES Performing Organization Address City/State/[place] [address] (ABNORMAL) BMP w/fasting Glucose (12/08/2019 12:43 AM EDT) P athologist Signature Glucose 106 (H) 65 - 99 [facility] Fasting mg/dL [facility] Comment: ?Fasting* Glucose Interpretive C riteria [...] 2009 BUN 14 10 - 20 mg/dL [facility] Creatinine 1.16 0.80 - 1.50 mg/dL [facility] LABORATORY Sodium 134 (L) 135 - [...] Gap 16 (H) 5 - 15 mmol/L [facility] LABORATORY Calcium 8.9 8.5 - 10.5 [...] of body mass or the acutely ill. [email or web address] eGFR 72 >=60 mL/min/1.73 m?? [facility] Comment: The eGFR was calculated using the CKD-EP I equation. As with all creatinine based estimates of kidney function, eGFR values calculated with the CKD-EPI equation are not accurate in patients wi th acute kidney failure, extremes of body mass or the acutely ill. [email or web address] Specimen Anatomical Collection Method Collection Time Receive d Time (Source) Location / / Volume Laterality Blood specimen 12/08/2019 12:43 0 (specimen) AM EDT 12:52 AM EDT Resulting Agency Comment Spec In Lab Gretchen Yoon MD CHEMISTRY ORDERABLES Performing Organization Address City/State/ZIP Code Phon e Number [place] [id number]OS[address] Heparin (unfractionated) Level (12/08/2019 [...] Organization Address City/State/[place] [address] Potassium (12/07/2019 8:39 PM EDT) athologist Signature Potassium 4.1 3.5 - 5.0 [facility] mmol/L [facility] Comment: Please note: ??Patients with WBC [...] Organization Address City/State/ZIP Code Phon e Number [address] Potassium (12/07/2019 4:02 PM EDT) P athologist Signature Potassium 4.0 3.5 - 5.0 [facility] mmol/L [facility] Comment: Please note: ??Patients with WBC [...] Yoon MD CHEMISTRY ORDERABLES Performing Organization Address City/[facility]/[place] [address] (ABNORMAL) Hemogram (12/07/2019 4:02 PM EDT) Analysis Performed At Patho logist Time Signature WBC 17.4 (H) 4.0 - 9.5 [place] x10(3)/[facility] LABORATORY RBC 4.58 4.58 - [place] DOV 5.54 [facility] x10(6)/[facility] LABORATORY Hemoglobin 13.5 (L) 13.7 - [place] 16.5 gm/dL [facility] Hematocrit 40.8 40.5 - [place] D[place] 48.5 % [facility]ORATORY MCV 89.1 82.9 - [place] 93.1 [facility] LABORATORY MCH 29.5 27.5 - [place] 32.1 pg [facility] LABORATORY MCHC 33.1 32.0 - [place] 35.7 gm/dL [facility] LABORATORY Platelets 238 145 - 357 [place] [facility] x10(3)/[facility] LABORATORY RDWSD 48.8 (H) 36.0 - [place] 45.0 [facility] LABORATORY RDWCV 15.0 (H) 11.4 - [facility] DOV 13.8 % [facility] LABORATORY MPV 12.2 7.6 - 12.9 [place] D[place] [facility] LABORATORY nRBC % Auto 0.0 % [facility] LAB[facility] nRBC Abs Auto 0.000 0.000 - [place] MONAE 0.000 [facility] x10(3)/[facility] LABORATORY Specimen Anatomical Collection Method Collection Time Receive d Time (Source) Location / / Volume Laterality Blood specimen 12/07/2019 4:02 PM 020 4:08 (specimen) EDT PM EDT Resulting Agency Comment Spec In Lab Gretchen Yoon MD HEMATOLOGY ORDERABLES Performing Organization Address City/[facility]/[place] [address] EKG 12 Lead (12/07/2019 [...] (Bezet) Calculated P -12 degrees [facility] [place] Calculated R 10 degrees [facility] [place] Calculated T -138 degrees [facility]USE [facility] [place] INTERPRETATION Supraventricular tachycardia MUSE SYSTEM Low voltage [...] athologist Signature Potassium 4.2 3.5 - 5.0 [facility] mmol/L [facility] Comment: Please note: ??Patients with WBC [...] ORDERABLES Performing Organization Address [facility] [place] [address] Heparin (unfractionated) Level (12/07/2019 [...] ORDERABLES Performing Organization Address [facility] [place] [address] Heparin (unfractionated) Level (12/07/2019 [...] Organization Address City/State/[place] [address] (ABNORMAL) Differential, Automated (12/07/2019 5:20 AM EDT) Patholo gist Method Time Signature Neutrophils % 62.4 % [facility] Neutr Abs (ANC) 5.46 1.70 - [facility] 6.10 [facility] x10(3)/[facility] LABORATORY Lymphocytes % 20.3 % [facility] LABOR[facility]ORY Lymphocytes Abs 1.8 0.9 - 3.2 [facility] x10(3)/[facility] LABORATORY Monocytes % 11.0 % [facility] LABOR[facility]ORY Monocyte Abs 1.0 (H) 0.3 - 0.9 [facility] x10(3)/[facility] LABORATORY Eosinophils % 4.5 % [facility] LABORATORY Eosinophils Abs 0.4 0.0 - 0.4 [facility] x10(3)/[facility] LABORATORY Basophils % 0.9 % [facility] LABORATORY Basophils Abs 0.1 0.0 - 0.1 [facility] x10(3)/[facility] LABORATORY Immature Gran % 0.90 % [facility] [...] Organization Address City/State/[place] [address] (ABNORMAL) Hemogram (12/07/2019 5:20 AM EDT) Analysis Performed At Patho logist Time Signature WBC 8.7 4.0 - 9.5 [facility] x10(3)/[facility] LABORATORY RBC 4.20 (L) 4.58 - [facility] 5.54 [facility] x10(6)/[facility] LABORATORY Hemoglobin 12.3 (L) 13.7 - [facility] 16.5 gm/dL [facility] LABORATORY Hematocrit 37.4 (L) 40.5 - [facility] 48.5 % [facility] LABORATORY MCV 89.0 82.9 - [facility] 93.1 fL [facility] LABORATORY MCH 29.3 27.5 - [facility] 32.1 pg [facility] LABORATORY MCHC 32.9 32.0 - [place] MONAE 35.7 gm/dL [facility] LABORATORY Platelets 181 145 - 357 [place] MONAE x10(3)/[facility] LABORATORY RDWSD 47.7 (H) 36.0 - [place] MONAE 45.0 [facility] LABORATORY RDWCV 14.8 (H) 11.4 - [place] MONAE 13.8 % [facility] LABORATORY MPV 12.3 7.6 - 12.9 [place] DOV [facility] LABORATORY nRBC % Auto 0.0 % [facility] LABORATORY nRBC Abs Auto 0.000 0.000 - [place] MONAE 0.000 [facility] x10(3)/[facility] LABORATORY Specimen Anatomical Collection Method Collection Time Receive d Time (Source) Location / / Volume Laterality Blood specimen 12/07/2019 5:20 AM 020 5:37 (specimen) EDT AM EDT Resulting Agency Comment Spec In Lab Riki Stevens MD HEMATOLOGY ORDERABLES Performing Organization Address City/[facility]/ZIP Code Phon e Number [address] Magnesium (12/07/2019 5:20 AM EDT) P athologist Signature Magnesium 0.89 0.69 - 1.07 [facility]L [facility] LABORATORY Specimen Anatomical Collection Method Collection Time Receive d Time (Source) Location / / Volume Laterality Blood specimen 12/07/2019 5:20 AM 020 5:37 (specimen) EDT AM EDT Resulting Agency Comment Spec In Lab Gretchen Yoon MD CHEMISTRY ORDERABLES Performing Organization Address City/[facility]/ZIP Code Phon e Number [address] (ABNORMAL) BMP w/fasting Glucose (12/07/2019 5:20 AM EDT) P athologist Signature Glucose 100 (H) 65 - 99 [facility] Fasting mg/dL [facility] LABORATORY Comment: ?Fasting* Glucose Interpretive C riteria [...] 2009 BUN 14 10 - 20 mg/dL [facility] LABORATORY Creatinine 0.83 0.80 - 1.50 mg/dL [facility] LABORATORY Sodium 135 135 - 145 [...] Anion Gap 14 5 - 15 mmol/L [facility] LABORATORY Calcium 8.8 8.5 - 10.5 [...] of body mass or the acutely ill. [email or web address] eGFR 101 >=60 mL/min/1.73 m?? [facility] LABORATORY Comment: The eGFR was calculated using the CKD-EP I equation. As with all creatinine based estimates of kidney function, eGFR values calculated with the CKD-EPI equation are not accurate in patients wi th acute kidney failure, extremes of body mass or the acutely ill. [email or web address]://[email or web address] Specimen Anatomical Collection Method Collection Time Receive d Time (Source) Location / / Volume Laterality Blood specimen 12/07/2019 5:20 AM 020 5:37 (specimen) EDT AM EDT Resulting Agency Comment Spec In Lab Gretchen Yoon MD CHEMISTRY ORDERABLES Performing Organization Address [facility] [place] [address] Heparin (unfractionated) Level (12/06/2019 [...] ORDERABLES Performing Organization Address [facility] [place] [address] Head wo Contrast [...] For questions regarding this report, please contact [facility] number below. ? Narrative 12/06/2019 10:06 PM [...] 10.4 (H) 4.0 - 9.5 [facility] LABORATORY RBC 4.32 (L) 4.58 - [facility] DOV 5.54 [facility] x10(6)/[facility] LABORATORY Hemoglobin 12.5 (L) 13.7 - [facility] 16.[facility] gm/dL [facility] LABORATORY Hematocrit 38.4 (L) 40.5 - [facility] 48.5 % [facility] LABORATORY MCV 88.9 82.9 - [facility] 93.1 [facility] LABORATORY MCH 28.9 27.5 - [facility] DOV 32.1 pg [facility] LABORATORY MCHC 32.6 32.0 - [facility] 35.7 gm/dL [facility] LABORATORY Platelets 194 145 - 357 [facility] x10(3)/[facility] LABORATORY RDWSD 46.9 (H) 36.0 - [facility] 45.0 [facility] LABORATORY RDWCV 14.6 (H) 11.4 - [facility] 13.8 % [facility] LABORATORY MPV 11.9 7.6 - 12.9 [facility] LABORATORY nRBC % Auto 0.0 % [facility] LABORATORY nRBC Abs Auto 0.000 0.000 - [facility] DOV 0.000 [facility] x10(3)/[facility] LABORATORY Specimen Anatomical Collection Method Collection Time Receive d Time (Source) Location / / Volume Laterality Blood specimen 12/06/2019 4:20 PM 020 4:31 (specimen) EDT PM EDT Resulting Agency Comment Spec In Lab Gretchen Yoon MD HEMATOLOGY ORDERABLES Performing Organization Address City/State/[place] [address] Heparin (unfractionated) Level (12/06/2019 [...] Organization Address City/State/[place] [address] Heparin (unfractionated) Level (12/06/2019 [...] Lagos MD HEMATOLOGY ORDERABLES Performing Organization Address City/[facility]/ZIP Code Phon e Number [address] Magnesium (12/06/2019 3:36 AM EDT) P athologist Signature Magnesium 0.86 0.69 - 1.07 [facility] mmol/L [facility] LABORATORY Specimen Anatomical Collection Method Collection Time Receive d Time (Source) Location / / Volume Laterality Blood specimen 12/06/2019 3:36 AM 020 3:45 (specimen) EDT AM EDT Resulting Agency Comment Spec In Lab Gretchen Yoon MD CHEMISTRY ORDERABLES Performing Organization Address City/[facility]/ZIP Code Phon e Number [address] (ABNORMAL) BMP w/fasting Glucose (12/06/2019 3:36 AM EDT) P athologist Signature Glucose 103 (H) 65 - 99 [facility] Fasting mg/dL [facility] LABORATORY Comment: ?Fasting* Glucose Interpretive C riteria [...] 2009 BUN 20 10 - 20 mg/dL [facility] LABORATORY Creatinine 0.88 0.80 - 1.50 mg/dL [facility] LABORATORY Sodium 136 135 - 145 [...] Anion Gap 14 5 - 15 mmol/L [facility] LABORATORY Calcium 8.7 8.5 - 10.5 [...] of body mass or the acutely ill. [email or web address] eGFR 99 >=60 mL/min/1.73 m?? [facility] LABORATORY Comment: The eGFR was calculated using the CKD-EP I equation. As with all creatinine based estimates of kidney function, eGFR values calculated with the CKD-EPI equation are not accurate in patients wi th acute kidney failure, extremes of body mass or the acutely ill. [email or web address] Specimen Anatomical Collection Method Collection Time Receive d Time (Source) Location / / Volume Laterality Blood specimen 12/06/2019 3:36 AM 020 3:45 (specimen) EDT AM EDT Resulting Agency Comment Spec In Lab Gretchen Yoon MD CHEMISTRY ORDERABLES Performing Organization Address City/State/ZIP Code Phon e Number [address] (ABNORMAL) Hemogram (12/06/2019 3:36 AM EDT) Analysis Performed At Patho logist Time Signature WBC 9.2 4.0 - 9.5 [facility](3[facility] LABORATORY RBC 3.99 (L) 4.58 - [place] [facility] 5.54 [facility] x10(6)/[facility] LABORATORY Hemoglobin 11.9 (L) 13.7 - [facility] 16.5 gm/dL [facility] LABORATORY Hematocrit 35.5 (L) 40.5 - [facility] 48.5 % [facility] LABORATORY MCV 89.0 82.9 - [facility] 93.1 [facility] LABORATORY MCH 29.8 27.5 - [place] [facility] 32.1 pg [facility] LABORATORY MCHC 33.5 32.0 - [place] D[facility] 35.7 gm/dL [facility] LABORATORY Platelets 164 145 - 357 [facility] x10(3)/[facility] LABORATORY RDWSD 47.6 (H) 36.0 - [place] [facility] 45.0 [facility] LABORATORY RDWCV 14.7 (H) 11.4 - [facility] 13.8 % [facility] LABORATORY MPV 11.9 7.6 - 12.9 [facility] LABORATORY nRBC % Auto 0.0 % [facility] LABORATORY nRBC Abs Auto 0.000 0.000 - [facility] DOV 0.000 [facility] x10(3)/[facility] LABORATORY Specimen Anatomical Collection Method Collection Time Receive d Time (Source) Location / / Volume Laterality Blood specimen 12/06/2019 3:36 AM 020 3:45 (specimen) EDT AM EDT Resulting Agency Comment Spec In Lab Gretchen Yoon MD HEMATOLOGY ORDERABLES Performing Organization Address City/[facility]/ZIP Code Phon e Number [address] (ABNORMAL) Differential, Automated (12/05/2019 10:52 PM EDT) Patholo gist Method Time Signature Neutrophils % 61.9 % [facility] LABORATORY Neutr Abs (ANC) 6.02 1.70 - [facility] 6.10 [facility] x10(3)/[facility] LABORATORY Lymphocytes % 22.4 % [facility] LABORATORY Lymphocytes Abs 2.2 0.9 - 3.2 [facility] x10(3)/[facility] LABORATORY Monocytes % 10.4 % [facility] LABORATORY Monocyte Abs 1.0 (H) 0.3 - 0.9 [facility] x10(3)/[facility] LABORATORY Eosinophils % 4.1 % [facility] LABORATORY Eosinophils Abs 0.4 0.0 - 0.4 [facility] x10(3)/[facility] LABORATORY Basophils % 0.7 % [facility] LABORATORY Basophils Abs 0.1 0.0 - 0.1 [facility] x10(3)/[facility] LABORATORY Immature Gran % 0.50 % MAY[facility] [...] Organization Address City/State/[place] [address] (ABNORMAL) Hemogram (12/05/2019 10:52 PM EDT) Analysis Performed At [facility] logist Time Signature WBC 9.7 (H) 4.0 - 9.5 [facility] x10(3)/[facility] LABORATORY RBC 4.07 (L) 4.58 - [place] [facility] 5.54 [facility] x10(6)/[facility] LABORATORY Hemoglobin 11.9 (L) 13.7 - [place] [facility] 16.5 gm/dL [facility] LABORATORY Hematocrit 36.4 (L) 40.5 - [place] 48.5 % [facility] LABORATORY MCV 89.4 82.9 - [facility] 93.1 [facility] LABORATORY MCH 29.2 27.5 - [place] D[facility] 32.1 pg [facility] LABORATORY MCHC 32.7 32.0 - [place] DOV 35.7 gm/dL [facility] LABORATORY Platelets 167 145 - 357 [facility] x10(3)/[facility] LABORATORY RDWSD 47.7 (H) 36.0 - [facility] 45.0 [facility] LABORATORY RDWCV 14.6 (H) 11.4 - [facility] 13.8 % [facility] LABORATORY MPV 12.1 7.6 - 12.9 [facility] LABORATORY nRBC % Auto 0.0 % [facility] LABORATORY nRBC Abs Auto 0.000 0.000 - [facility] 0.000 [facility] x10(3)/[facility] LABORATORY Specimen Anatomical Collection Method Collection Time Receive d Time (Source) Location / / Volume Laterality Blood specimen 12/05/2019 10:52 0 (specimen) PM EDT 10:59 PM EDT Resulting Agency Comment Spec In Lab Mandi Barrera MD HEMATOLOGY ORDERABLES Performing Organization Address City/State/[place] [address] Heparin (unfractionated) Level (12/05/2019 [...] Organization Address City/State/[place] [address] MRI Brain wwo Contrast [...] contact e number below. Electronically signed by: LABA Jenkins [facility] ([phone]), at 12/05/2019 10:02 PM Paris Lagos MD IMG MRI ORDERABLES (ABNORMAL) Hemogram (12/05/2019 1:00 PM EDT) Analysis Performed At Patho logist Time Signature WBC 8.7 4.0 - 9.5 [facility] x10(3)/[facility] LABORATORY RBC 4.17 (L) 4.58 - [facility] 5.54 [facility] x10(6)/[facility] LABORATORY Hemoglobin 12.4 (L) 13.7 - [facility] 16.5 gm/dL [facility] LABORATORY Hematocrit 37.0 (L) 40.5 - [facility] 48.5 % [facility] LABORATORY MCV 88.7 82.9 - [facility] 93.1 [facility] LABORATORY MCH 29.7 27.5 - [facility] 32.1 pg [facility] LABORATORY MCHC 33.5 32.0 - [facility] 35.7 gm/dL [facility] LABORATORY Platelets 173 145 - 357 [facility] x10(3)/[facility] LABORATORY RDWSD 47.3 (H) 36.0 - [facility] 45.0 [facility] LABORATORY RDWCV 14.6 (H) 11.4 - [facility] 13.8 % [facility] LABORATORY MPV 12.1 7.6 - 12.9 [facility] LABORATORY nRBC % Auto 0.0 % [facility] LABORATORY nRBC Abs Auto 0.000 0.000 - [facility] 0.000 [facility] x10(3)/[facility] LABORATORY Specimen Anatomical Collection Method Collection Time Receive d Time (Source) Location / / Volume Laterality Blood specimen 12/05/2019 1:00 PM 020 1:13 (specimen) EDT PM EDT Resulting Agency Comment Spec In Lab Gretchen Yoon MD HEMATOLOGY ORDERABLES Performing Organization Address City/State/[place] [address] EKG 12 Lead (12/05/2019 10:52 AM EDT) Component Value Ref Range Test Analysis Performed Pathologis t Method Time At Signature Ventricular rate 72 BPM MUSE SYSTEM Atrial Rate 72 BPM MUSE SYSTEM P-R Interval 138 ms MUSE SYSTEM QRS Duration 96 ms MUSE SYSTEM Q-T Interval 396 ms MUSE SYSTEM QTC Calculated 433 ms MUSE SYSTEM (Bezet) Calculated P [place] 65 degrees MUSE SYSTEM Calculated R [place] 13 degrees MUSE SYSTEM Calculated T [place] 0 degrees MUSE SYSTEM INTERPRETATION Sinus rhythm Occasional Premature ventricular complexe s MUSE SYSTEM Possible Inferior infarct (cited on or before 29-NOV-2019) Abnormal ECG When compared with ECG of 04-DEC-2019 10:43, Sinus rhythm has replaced Atrial fibrillation Vent. rate has decreased BY ??86 BPM Confirmed by MD Ceja Daniel ([id number]) on 12/05/2019 3:55:22 PM Specimen Anatomical Collection Method Collection Time Receive d Time (Source) Location / / Volume Laterality 12/05/2019 10:52 12/05/2019 3:55 AM EDT PM EDT Paris Lagos MD ECG ORDERABLES Performing Organization Address City/State/ZIP Code Phon e Number MUSE SYSTEM Duplex Study for DVT, Bilat legs (12/05/2019 7:00 AM EDT) Component Value Ref Test Analysis Performed At [facility] Range Method Time Signature VB Text Department: Vascular Surgery Lab VASCUBASE Report Patient: [id number] (ANGEL LUIS SALINAS) CPT: 84555 ICD10: I26.99 Referring Physician: GRETCHEN YOON ?? [...] athologist Signature Magnesium 0.87 0.69 - 1.07 [facility] mmol/L [facility] LABORATORY Specimen Anatomical Collection Method Collection Time Receive d Time (Source) Location / / Volume Laterality Blood specimen 12/05/2019 4:18 AM 020 4:31 (specimen) EDT AM EDT Resulting Agency Comment Spec In Lab Gretchen Yoon MD CHEMISTRY ORDERABLES Performing Organization Address City/[facility]/ZIP [facility] [place] [address] (ABNORMAL) BMP w/fasting Glucose (12/05/2019 4:18 AM EDT) P athologist Signature Glucose 104 (H) 65 - 99 [facility] Fasting mg/dL [facility] LABORATORY Comment: ?Fasting* Glucose Interpretive C riteria [...] BUN 21 (H) 10 - 20 mg/dL [facility] LABORATORY Creatinine 1.02 0.80 - 1.50 mg/dL [facility] LABORATORY Sodium 136 135 - 145 [...] Anion Gap 12 5 - 15 mmol/L [facility] LABORATORY Calcium 8.8 8.5 - 10.5 [...] of body mass or the acutely ill. [email or web address] NORMANnkf eGFR 84 >=60 mL/min/1.73 m?? [facility] LABORATORY Comment: The eGFR was calculated using the CKD-EP I equation. As with all creatinine based estimates of kidney function, eGFR values calculated with the CKD-EPI equation are not accurate in patients wi th acute kidney failure, extremes of body mass or the acutely ill. [email or web address] NORMANnkf Specimen Anatomical Collection Method Collection Time Receive d Time (Source) Location / / Volume Laterality Blood specimen 12/05/2019 4:18 AM 020 4:31 (specimen) EDT AM EDT Resulting Agency Comment Spec In Lab Gretchen Yoon MD CHEMISTRY ORDERABLES Performing Organization Address City/State/[place] [address] (ABNORMAL) Hemogram (12/05/2019 4:18 AM EDT) Analysis Performed At Patho logist Time Signature WBC 8.6 4.0 - 9.5 [facility] x10(3)/[facility] LABORATORY RBC 4.28 (L) 4.58 - [place] [facility] 5.54 [facility] x10(6)/[facility] LABORATORY Hemoglobin 12.4 (L) 13.7 - [facility] 16.5 gm/dL [facility] LABORATORY Hematocrit 37.3 (L) 40.5 - [facility] 48.5 % [facility] LABORATORY MCV 87.1 82.9 - [facility] 93.1 [facility] LABORATORY MCH 29.0 27.5 - [facility] 32.1 pg [facility] LABORATORY MCHC 33.2 32.0 - [facility] 35.7 gm/dL [facility] LABORATORY Platelets 163 145 - 357 [facility] x10(3)/[facility] LABORATORY RDWSD 46.4 (H) 36.0 - [facility] 45.0 [facility] LABORATORY RDWCV 14.4 (H) 11.4 - [facility] 13.8 % [facility] LABORATORY MPV 11.7 7.6 - 12.9 [facility] LABORATORY nRBC % Auto 0.0 % [facility] LABORATORY nRBC Abs Auto 0.000 0.000 - [facility] 0.000 [facility] x10(3)/[facility] LABORATORY Specimen Anatomical Collection Method Collection Time Receive d Time (Source) Location / / Volume Laterality Blood specimen 12/05/2019 4:18 AM 020 4:31 (specimen) EDT AM EDT Resulting Agency Comment Spec In Lab Gretchen Yoon MD HEMATOLOGY ORDERABLES Performing Organization Address City/State/[place] [address] Cardiac for Morphology [...] pleural effusions. Findings called by Dr. Maciel atikns and discussed with Dr. Stevens at 12/04/2019 6:10 PM. I verified that he und erstood these results. I have personally reviewed the image(s) and the resident's interpretation and agree with the findings, Roselyn Luciano at 12/04/2019 6:16 PM Thank you for letting us participate in the care of this patient. For questions regarding this report, please contact [facility] number below. ? Narrative 12/04/2019 6:16 PM [...] from neck/greatest puja meter to back wall: DANISH 91, CAU 13: ??19 mm CORTES ??1, [...] from neck/greatest puja meter to back wall: DANISH 91, CAU 13: 19 mm CORTES 1, [...] WBC 8.9 4.0 - 9.5 [place] [facility] x10(3)/[facility] LABORATORY RBC 4.69 4.58 - [place] [facility] 5.54 [facility] x10(6)/[facility] LABORATORY Hemoglobin 13.5 (L) 13.7 - [place] [facility] 16.5 gm/dL [facility] LABORATORY Hematocrit 41.7 40.5 - [place] [facility] 48.5 % [facility] LABORATORY MCV 88.9 82.9 - [place] [facility] 93.1 fL [facility] LABORATORY MCH 28.8 27.5 - [place] [facility] 32.1 pg [facility] LABORATORY MCHC 32.4 32.0 - [place] [facility] 35.7 gm/dL [facility] LABORATORY Platelets 196 145 - 357 [place] [facility] x10(3)/[facility] LABORATORY RDWSD 46.7 (H) 36.0 - [place] [facility] 45.0 [facility] LABORATORY RDWCV 14.5 (H) 11.4 - [place] 13.8 % [facility] LABORATORY MPV 12.1 7.6 - 12.9 [place] [facility] LABORATORY nRBC % Auto 0.0 % [facility] LABORATORY nRBC Abs Auto 0.000 0.000 - [place] 0.000 [facility] x10(3)/[facility] LABORATORY Specimen Anatomical Collection Method Collection Time Receive d Time (Source) Location / / Volume Laterality Blood specimen 12/04/2019 12:55 0 1:06 (specimen) PM EDT PM EDT Resulting Agency Comment Spec In Lab Gretchen Yoon MD HEMATOLOGY ORDERABLES Performing Organization Address City/[facility]/[place] [address] EKG 12 Lead (12/04/2019 10:43 AM EDT) Component Value Ref Range Test Analysis Performed Pathologis t Method Time At Signature Ventricular rate 158 BPM MUSE SYSTEM Atrial Rate 102 BPM MUSE SYSTEM QRS Duration 92 ms MUSE SYSTEM Q-T Interval 294 ms MUSE SYSTEM QTC Calculated 476 ms MUSE SYSTEM (Bezet) Calculated R [place] 17 degrees MUSE SYSTEM Calculated T [place] 90 degrees MUSE SYSTEM INTERPRETATION Atrial fibrillation with rapid ventricular response MUSE SYSTEM Possible Inferior infarct (cited on or before 29-NOV-2019) Abnormal ECG When compared with ECG of 30-NOV-2019 21:07, Atrial fibrillation has replaced Sinus rhythm Vent. rate has increased BY ??65 BPM Confirmed by MD Brenna, Faustino ([id number]) on 12/05/2019 8:59:44 AM Specimen Anatomical Collection Method Collection Time Receive d Time (Source) Location / / Volume Laterality 12/04/2019 10:43 12/05/2019 8:59 AM EDT AM EDT Gretchen Yoon MD ECG ORDERABLES Performing Organization Address City/State/ZIP Code Phon e Number MUSE SYSTEM (ABNORMAL) Magnesium (12/04/2019 4:28 AM EDT) P athologist Signature Magnesium 1.17 (H) 0.69 - 1.07 [facility] mmol/L [facility] LABORATORY Specimen Anatomical Collection Method Collection Time Receive d Time (Source) Location / / Volume Laterality Blood specimen 12/04/2019 4:28 AM 020 4:40 (specimen) EDT AM EDT Resulting Agency Comment Spec In Lab Gretchen Yoon MD CHEMISTRY ORDERABLES Performing Organization Address City/State/[place] [address] (ABNORMAL) BMP w/fasting Glucose (12/04/2019 4:28 AM EDT) athologist Signature Glucose 108 (H) 65 - 99 [facility] Fasting mg/dL [facility] LABORATORY Comment: ?Fasting* Glucose Interpretive C riteria [...] 2009 BUN 19 10 - 20 mg/dL [facility] LABORATORY Creatinine 0.89 0.80 - 1.50 mg/dL [facility] LABORATORY Sodium 135 135 - 145 [...] Anion Gap 12 5 - 15 mmol/L [facility] LABORATORY Calcium 8.5 8.5 - 10.5 [...] of body mass or the acutely ill. [email or web address]nkf eGFR 98 >=60 mL/min/1.73 m?? [facility] LAB[facility] Comment: The eGFR was calculated using the CKD-EP I equation. As with all creatinine based estimates of kidney function, eGFR values calculated with the CKD-EPI equation are not accurate in patients wi th acute kidney failure, extremes of body mass or the acutely ill. [email or web address] Specimen Anatomical Collection Method Collection Time Receive d Time (Source) Location / / Volume Laterality Blood specimen 12/04/2019 4:28 AM 020 4:40 (specimen) EDT AM EDT Resulting Agency Comment Spec In Lab Gretchen Yoon MD CHEMISTRY ORDERABLES Performing Organization Address City/State/[place] [address] (ABNORMAL) Hemogram (12/04/2019 4:28 AM EDT) Analysis Performed At Patho logist Time Signature WBC 7.8 4.0 - 9.5 [facility] x10(3)/[facility] LABORATORY RBC 4.10 (L) 4.58 - [facility] 5.54 [facility] x10(6)/[facility] LABORATORY Hemoglobin 12.0 (L) 13.7 - [facility] 16.5 gm/dL [facility] LABORATORY Hematocrit 36.5 (L) 40.5 - [facility] 48.5 % [facility] LABORATORY MCV 89.0 82.9 - [facility] 93.1 fL [facility] LABORATORY MCH 29.3 27.5 - MELINA MONAE 32.1 pg [facility] LABORATORY MCHC 32.9 32.0 - MELINA MONAE 35.7 gm/dL [facility] LABORATORY Platelets 151 145 - 357 MELINA VILLANUEVACK x10(3)/[facility] LABORATORY RDWSD 46.9 (H) 36.0 - M[place] MONAE 45.0 [facility] LABORATORY RDWCV 14.4 (H) 11.4 - MEL[place] MONAE 13.8 % [facility] LABORATORY MPV 12.2 7.6 - 12.9 MELINA MONAE fL [facility] LABORATORY nRBC % Auto 0.0 % [facility] LABORATORY nRBC Abs Auto 0.000 0.000 - MELINA MONAE 0.000 [facility] x10(3)/[facility] LABORATORY Specimen Anatomical Collection Method Collection Time Receive d Time (Source) Location / / Volume Laterality Blood specimen 12/04/2019 4:28 AM 020 4:40 (specimen) EDT AM EDT Resulting Agency Comment Spec In Lab Gretchen Yoon MD HEMATOLOGY ORDERABLES Performing Organization Address City/[facility]/ZIP Code Phon e Number [address] Potassium (12/03/2019 7:55 PM EDT) athologist Signature Potassium 3.9 3.5 - 5.0 [facility]L [facility] LAB[facility]ORY Comment: Please note: ??Patients with WBC [...] Yoon MD CHEMISTRY ORDERABLES Performing Organization Address City/[facility]/ZIP [facility] Phon e Number [address] Potassium (12/03/2019 1:57 PM EDT) athologist Signature Potassium 3.7 3.5 - 5.0 [facility]/L [facility] LABORATORY Comment: Please note: ??Patients with WBC [...] Organization Address City/State/[place] [address] (ABNORMAL) Hemogram (12/03/2019 1:57 PM EDT) Analysis Performed At Patho logist Time Signature WBC 8.8 4.0 - 9.5 MELINA DOV x10(3)/[facility] LABORATORY RBC 4.27 (L) 4.58 - M[place] DOV 5.54 [facility] x10(6)/[facility] LABORATORY Hemoglobin 12.5 (L) 13.7 - M[place] DOV 16.5 gm/dL [facility] LABORATORY Hematocrit 37.5 (L) 40.5 - M[place] DOV 48.5 % [facility] LABORATORY MCV 87.8 82.9 - [place] DOV 93.1 [facility] LABORATORY MCH 29.3 27.5 - M[place] DOV 32.1 pg [facility] LABORATORY MCHC 33.3 32.0 - M[place] DOV 35.7 gm/dL [facility] LABORATORY Platelets 158 145 - 357 MELINA DOV x10(3)/[facility] LABORATORY RDWSD 46.9 (H) 36.0 - [place] DOV 45.0 [facility] LABORATORY RDWCV 14.5 (H) 11.4 - M[place] DOV 13.8 % [facility] LABORATORY MPV 12.2 7.6 - 12.9 M[place] DOV [facility] LABORATORY nRBC % Auto 0.0 % [facility] LABORATORY nRBC Abs Auto 0.000 0.000 - [facility] [facility] 0.000 [facility] x10(3)/[facility] LABORATORY Specimen Anatomical Collection Method Collection Time Receive d Time (Source) Location / / Volume Laterality Blood specimen 12/03/2019 1:57 PM 020 2:21 (specimen) EDT PM EDT Resulting Agency Comment Spec In Lab Gretchen Yoon MD HEMATOLOGY ORDERABLES Performing Organization Address City/State/ZIP Code Phon e Number [address] Magnesium (12/03/2019 4:02 AM EDT) P athologist Signature Magnesium 0.79 0.69 - 1.07 [facility] mmol/L [facility] LABORATORY Specimen Anatomical Collection Method Collection Time Receive d Time (Source) Location / / Volume Laterality Blood specimen 12/03/2019 4:02 AM 020 4:16 (specimen) EDT AM EDT Resulting Agency Comment Spec In Lab Gretchen Yoon MD CHEMISTRY ORDERABLES Performing Organization Address City/State/[place] [address] (ABNORMAL) BMP w/fasting Glucose (12/03/2019 4:02 AM EDT) P athologist Signature Glucose 100 (H) 65 - 99 [facility] Fasting mg/dL [facility] LABORATORY Comment: ?Fasting* Glucose Interpretive C riteria [...] 2009 BUN 17 10 - 20 mg/dL [facility] LABORATORY Creatinine 0.95 0.80 - 1.50 mg/dL [facility] LABORATORY Sodium 136 135 - 145 [...] Anion Gap 15 5 - 15 mmol/L [facility] LABORATORY Calcium 8.3 (L) 8.5 - [...] of body mass or the acutely ill. [email or web address]MANnkf eGFR 92 >=60 mL/min/1.73 m?? [facility] Comment: The eGFR was calculated using the CKD-EP I equation. As with all creatinine based estimates of kidney function, eGFR values calculated with the CKD-EPI equation are not accurate in patients wi th acute kidney failure, extremes of body mass or the acutely ill. [email or web address] Specimen Anatomical Collection Method Collection Time Receive d Time (Source) Location / / Volume Laterality Blood specimen 12/03/2019 4:02 AM 020 4:16 (specimen) EDT AM EDT Resulting Agency Comment Spec In Lab Gretchen Yoon MD CHEMISTRY ORDERABLES Performing Organization Address City/State/[place] [address] (ABNORMAL) Hemogram (12/03/2019 4:02 AM EDT) Analysis Performed At Patho logist Time Signature WBC 9.1 4.0 - 9.5 [facility] x10(3)/[facility] LABORATORY RBC 4.01 (L) 4.58 - MELINA MARSHDOV 5.54 [facility] x10(6)/[facility] LABORATORY Hemoglobin 11.8 (L) 13.7 - [facility] 16.5 gm/dL [facility] LABORATORY Hematocrit 35.6 (L) 40.5 - [facility] 48.5 % [facility] LABORATORY MCV 88.8 82.9 - [facility] 93.1 [facility] LABORATORY MCH 29.4 27.5 - [facility] 32.1 pg [facility] LABORATORY MCHC 33.1 32.0 - [facility] 35.7 gm/dL [facility] LABORATORY Platelets 130 (L) 145 - 357 [facility] x10(3)/[facility] LABORATORY RDWSD 46.6 (H) 36.0 - [facility] 45.0 [facility] LABORATORY RDWCV 14.4 (H) 11.4 - [facility] 13.8 % [facility] LABORATORY MPV 12.4 7.6 - 12.9 [facility] LABORATORY nRBC % Auto 0.0 % [facility] LABORATORY nRBC Abs Auto 0.000 0.000 - [facility] 0.000 [facility] x10(3)/[facility] LABORATORY Specimen Anatomical Collection Method Collection Time Receive d Time (Source) Location / / Volume Laterality Blood specimen 12/03/2019 4:02 AM 020 4:16 (specimen) EDT AM EDT Resulting Agency Comment Spec In Lab Gretchen Yoon MD HEMATOLOGY ORDERABLES Performing Organization Address City/State/[place] [address] XR Chest One View [...] Signature WBC 10.6 (H) 4.0 - 9.5 [facility] x[facility](3[facility] LABORATORY RBC 4.00 (L) 4.58 - [facility] DOV 5.54 [facility] x10(6)/[facility] LABORATORY Hemoglobin 11.9 (L) 13.7 - [facility] 16.5 gm/dL [facility] LABORATORY Hematocrit 35.7 (L) 40.5 - [facility] 48.5 % [facility] LABORATORY MCV 89.3 82.9 - [facility] 93.1 [facility] LABORATORY MCH 29.8 27.5 - [facility] 32.1 pg [facility] LABORATORY MCHC 33.3 32.0 - [facility] 35.7 gm/dL [facility] LABORATORY Platelets 120 (L) 145 - 357 [facility] x10(3)/[facility] LABORATORY RDWSD 47.5 (H) 36.0 - [facility] 45.0 [facility] LABORATORY RDWCV 14.6 (H) 11.4 - [facility] 13.8 % [facility] LABORATORY MPV 12.0 7.6 - 12.9 [facility] LABORATORY nRBC % Auto 0.0 % [facility] LABORATORY nRBC Abs Auto 0.000 0.000 - [facility] 0.000 [facility] x10(3)/[facility] LABORATORY Specimen Anatomical Collection Method Collection Time Receive d Time (Source) Location / / Volume Laterality Blood specimen 12/02/2019 12:50 0 1:22 (specimen) PM EDT PM EDT Resulting Agency Comment Spec In Lab Gretchen Yoon MD HEMATOLOGY ORDERABLES Performing Organization Address City/State/[place] [address] Blue Tube HOLD (12/02/2019 4:55 AM EDT) P athologist Signature Blue Hold Sample in [facility] lab. [facility] LABORATORY Specimen Anatomical Collection Method Collection Time Receive d Time (Source) Location / / Volume Laterality Blood specimen Venous Draw / 12/02/2019 4:55 AM 2019 5:03 (specimen) Unknown EDT AM EDT Darrell Glasgow MD HEMATOLOGY ORDERABLES Performing Organization Address City/State/ZIP Code Phon e Number [address] Magnesium (12/02/2019 4:55 AM EDT) athologist Signature Magnesium 0.85 0.69 - 1.07 [facility] mmol/L [facility] LABORATORY Specimen Anatomical Collection Method Collection Time Receive d Time (Source) Location / / Volume Laterality Blood specimen 12/02/2019 4:55 AM 020 5:02 (specimen) EDT AM EDT Resulting Agency Comment Spec In Lab Gretchen Yoon MD CHEMISTRY ORDERABLES Performing Organization Address City/State/[place] [address] (ABNORMAL) BMP w/fasting Glucose (12/02/2019 4:55 AM EDT) athologist Signature Glucose 114 (H) 65 - 99 [facility] Fasting mg/dL [facility] LABORATORY Comment: ?Fasting* Glucose Interpretive C riteria [...] 2009 BUN 13 10 - 20 mg/dL [facility] LABORATORY Creatinine 0.93 0.80 - 1.50 mg/dL [facility] LABORATORY Sodium 135 135 - 145 [...] Anion Gap 12 5 - 15 mmol/L [facility] LABORATORY Calcium 8.1 (L) 8.5 - [...] of body mass or the acutely ill. [email or web address]MANnkf eGFR 94 >=60 mL/min/1.73 m?? [facility] Comment: The eGFR was calculated using the CKD-EP I equation. As with all creatinine based estimates of kidney function, eGFR values calculated with the CKD-EPI equation are not accurate in patients wi th acute kidney failure, extremes of body mass or the acutely ill. [email or web address] Specimen Anatomical Collection Method Collection Time Receive d Time (Source) Location / / Volume Laterality Blood specimen 12/02/2019 4:55 AM 020 5:02 (specimen) EDT AM EDT Resulting Agency Comment Spec In Lab Gretchen Yoon MD CHEMISTRY ORDERABLES Performing Organization Address City/State/[place] [address] (ABNORMAL) Hemogram (12/02/2019 4:55 AM EDT) Analysis Performed At Patho logist Time Signature WBC 9.3 4.0 - 9.5 [facility] x[facility](3[facility] LABORATORY RBC 3.71 (L) 4.58 - M[place] DOV 5.54 [facility] x10(6)/[facility] LABORATORY Hemoglobin 10.8 (L) 13.7 - [facility] 16.5 gm/dL [facility] LABORATORY Hematocrit 33.1 (L) 40.5 - [facility] 48.5 % [facility] LABORATORY MCV 89.2 82.9 - [facility] 93[facility]1 [facility] LABORATORY MCH 29.1 27.5 - [facility] 32.1 pg [facility] LABORATORY MCHC 32.6 32.0 - [facility] 35.7 gm/dL [facility] LABORATORY Platelets 93 (L) 145 - 357 [facility] x10(3)/[facility] LABORATORY RDWSD 47.1 (H) 36.0 - [facility] 45.0 [facility] LABORATORY RDWCV 14.6 (H) 11.4 - [facility] 13.8 % [facility] LABORATORY MPV 11.7 7.6 - 12.9 [facility] LABORATORY nRBC % Auto 0.0 % [facility] LABORATORY nRBC Abs Auto 0.000 0.000 - [facility] 0.000 [facility] x10(3)/[facility] LABORATORY Specimen Anatomical Collection Method Collection Time Receive d Time (Source) Location / / Volume Laterality Blood specimen 12/02/2019 4:55 AM 020 5:02 (specimen) EDT AM EDT Resulting Agency Comment Spec In Lab Gretchen Yoon MD HEMATOLOGY ORDERABLES Performing Organization Address City/State/[place] [address] Transfuse 1 unit platelets, [...] For questions regarding this report, please contact [facility] number below. ? Narrative 12/01/2019 8:02 PM [...] For questions regarding this report, please contact [facility] number below. Gretchen Yoon MD IMG MRI ORDERABLES Prepare Platelets, Apheresis (12/01/2019 6:20 PM EDT) P athologist Signature Dispensed? Yes [facility] LABORATORY Specimen Anatomical Collection Method Collection Time Receive d Time (Source) Location / / Volume Laterality Blood specimen 12/01/2019 6:20 PM 020 6:18 (specimen) EDT PM EDT Gretchen Yoon MD BLOOD BANK ORDERABLES Performing Organization Address City/[facility]/[place] [address] Duplex for DVT, Arm, Unilat (12/01/2019 5:08 PM EDT) Component Value Ref Test Analysis Performed At Patholo gist Range Method Time Signature VB Text Department: Vascular Surgery Lab VASCUBASE Report Patient: [id number] (ANGEL LUIS SALINAS) CPT: 45653 ICD10: R60.0 Referring Physician: GRETCHEN YOON ?? [...] For questions regarding this report, please contact [facility] number below. ? Narrative 12/01/2019 3:53 PM EDT EXAMINATION: CT HEAD WO CONTRAST (GENERIC) CLINICAL HISTORY: Headache, intracranial hemorrhage suspected Serial CT scan: please assess for propag ation of known ICH noted on prior Head CT/imaging. TECHNIQUE: CT head performed without intravenous co ntrast administration. COMPARISON: Head CT 11/30/2019. CT [facility] [place] 11/01. FINDINGS: Ventricles are normal in size. Basal cis terns are patent. Unchanged hyperdense 2.3 x 0.7 x 0.6 cm tubular hemorrhage projecting along the course of the left optic tract (axial se [facility] 2 image 16), consistent with [...] Head CT 11/30/2019. CT [facility] [place] 11/01. FINDINGS: Ventricles are normal [...] Scan, Peripheral Blood (12/01/2019 12:51 PM EDT) [facility] Method Time Signature Plat Estimate Decreased [facility] RBC Morphology Normal [facility] Giant Less than 1 /HPF [facility] Platelets [facility] LABORATORY Specimen Anatomical Collection Method Collection Time Receive d Time (Source) Location / / Volume Laterality Blood specimen 12/01/2019 12:51 0 1:05 (specimen) PM EDT PM EDT Resulting Agency Comment Spec In Lab Riki Stevens MD HEMATOLOGY ORDERABLES Performing Organization Address City/State/[place] [address] (ABNORMAL) Differential, Automated (12/01/2019 12:51 PM EDT) [facility] Method Time Signature Neutrophils % 74.9 % [facility] Neutr Abs (ANC) 6.34 (H) 1.70 - [facility] 6.10 [facility] x10(3)/[facility] LABORATORY Lymphocytes % 11.4 % [facility] LABOR[facility]ORY Lymphocytes Abs 1.0 0.9 - 3.2 [facility] x10(3)/[facility] LABORATORY Monocytes % 12.4 % [facility] LABORATORY Monocyte Abs 1.0 (H) 0.3 - 0.9 [facility] x10(3)/[facility] LABORATORY Eosinophils % 0.4 % [facility]ORY Eosinophils Abs 0.0 0.0 - 0.4 [facility] x10(3)/[facility] LABORATORY Basophils % 0.4 % [facility] LABOR[facility]ORY Basophils Abs 0.0 0.0 - 0.1 [facility] x10(3)/[facility] LABORATORY Immature Gran % 0.50 % MAY[facility] [...] Pita Gran Abs 0.04 0.00 - 0.04 x10(3)/[facility] LAB[facility]ORY Specimen Anatomical Collection Method Collection Time Receive d Time (Source) Location / / Volume Laterality Blood specimen 12/01/2019 12:51 0 1:05 (specimen) PM EDT PM EDT Resulting Agency Comment Spec In Lab Riki Stevens MD HEMATOLOGY ORDERABLES Performing Organization Address City/State/ZIP Code Phon e Number [place] [id number]OS[address] Drive (ABNORMAL) Hemogram (12/01/2019 12:51 PM EDT) Analysis Performed At Patho logist Time Signature WBC 8.4 4.0 - 9.5 [facility](3[facility] LABORATORY RBC 3.69 (L) 4.58 - [facility] 5.54 [facility] x10(6)/[facility] LABORATORY Hemoglobin 10.8 (L) 13.7 - [facility] 16.5 gm/dL [facility] LABORATORY Hematocrit 32.4 (L) 40.5 - [facility] 48.5 % [facility] LABORATORY MCV 87.8 82.9 - [facility] 93.1 [facility] LABORATORY MCH 29.3 27.5 - [place] DOV 32.1 pg [facility] LABORATORY MCHC 33.3 32.0 - [facility] DOV 35.7 gm/dL [facility] LABORATORY Platelets 72 (L) 145 - 357 [facility](3[facility] LABORATORY RDWSD 47.2 (H) 36.0 - [facility] 45.0 [facility] LABORATORY RDWCV 14.6 (H) 11.4 - [facility] DOV 13.8 % [facility] LABORATORY MPV 12.2 7.6 - 12.9 [facility] LABORATORY nRBC % Auto 0.0 % [facility] LABORATORY nRBC Abs Auto 0.000 0.000 - [facility] 0.000 [facility] x10(3)/[facility] LABORATORY Specimen Anatomical Collection Method Collection Time Receive d Time (Source) Location / / Volume Laterality Blood specimen 12/01/2019 12:51 0 1:05 (specimen) PM EDT PM EDT Resulting Agency Comment Spec In Lab Riki Stevens MD HEMATOLOGY ORDERABLES Performing Organization Address City/State/ZIP Code Phon e Number [address] (ABNORMAL) Coox2 (12/01/2019 11:42 AM EDT) Analysis Performed At Patho logist Time Signature pO2 Coox 30 mmHg [facility] LABORATORY Hgb Blood Gas 11.6 (L) 13.7 - [facility] 16.5 gm/dL [facility] LABORATORY O2HB Coox 60.8 % [facility] [...] Organization Address City/State/[place] [address] Sedimentation rate (12/01/2019 3:55 AM EDT) P athologist Signature Sed Rate 25 3 - 46 [facility] mm/hr [facility] LABORATORY Comment: Effective June 11, 2019 new [...] Winn MD HEMATOLOGY ORDERABLES Performing Organization Address City/[facility]/[place] [address] (ABNORMAL) CRP, acute inflammation [...] Winn MD CHEMISTRY ORDERABLES Performing Organization Address City/[facility]/ZIP Code Phon e Number [address] ABORH Recheck Status (12/01/2019 3:55 AM EDT) [facility] Method Time Signature ABORH Recheck Order Placed [facility] LABORATORY ABORH Type Complete [facility] LABORATORY Specimen Anatomical Collection Method Collection Time Receive d Time (Source) Location / / Volume Laterality Blood specimen 12/01/2019 3:55 AM 020 4:15 (specimen) EDT AM EDT Resulting Agency Comment Spec In Lab Lewis eGe MD BLOOD BANK ORDERABLES Performing Organization Address City/[facility]/[place] [address] Antibody screen (12/01/2019 3:55 AM EDT) Patholo gist Method Time Signature Ab Screen Negative [facility] LABORATORY Expires at 12/04/2019 [facility] [id number] on: [facility] LABORATORY Specimen Anatomical Collection Method Collection Time Receive d Time (Source) Location / / Volume Laterality Blood specimen 12/01/2019 3:55 AM 020 4:15 (specimen) EDT AM EDT Resulting Agency Comment Spec In Lab Lewis Gee MD BLOOD BANK ORDERABLES Performing Organization Address City/State/[place] [address] ABO/Rh Typing (12/01/2019 3:55 AM EDT) athologist Signature ABORh Type AB Pos [facility] LABORATORY Specimen Anatomical Collection Method Collection Time Receive d Time (Source) Location / / Volume Laterality Blood specimen 12/01/2019 3:55 AM 020 4:15 (specimen) EDT AM EDT Resulting Agency Comment Spec In Lab Lewis Gee MD BLOOD BANK ORDERABLES Performing Organization Address City/[facility] [place] [address] (ABNORMAL) Troponin (12/01/2019 3:55 AM EDT) athologist Signature Troponin-T 4.35 (H) 0.00 - [facility] 0.00 ng/mL [facility] LABORATORY Comment: result rechecked-slw The 99th percentile for Troponin T is le ss than 0.01 ng/mL, any detectable cTnT concentration using this assay should be considered elevated. According to the third universal definit ion of myocardial infarction the following criteria with a clinical prese ntation consistent with acute myocardial ischemia meets the diagnosis for a myocardial infarction (NC). Detection of a rise and/or fall of [...] additional sample may be indicated. Reference: Third Granger Definition of Myocardial Infarction. Journal of the [place] [employer] 2012;60:1581-98 Specimen Anatomical Collection Method Collection Time Receive d Time (Source) Location / / Volume Laterality Blood specimen 12/01/2019 3:55 AM 020 4:00 (specimen) EDT AM EDT Resulting Agency Comment Spec In Lab Gretchen Yoon MD CHEMISTRY ORDERABLES Performing Organization Address City/State/ZIP Code Phon e Number [address] Magnesium (12/01/2019 3:55 AM EDT) P athologist Signature Magnesium 0.96 0.69 - 1.07 [facility] mmol/L [facility] LABORATORY Specimen Anatomical Collection Method Collection Time Receive d Time (Source) Location / / Volume Laterality Blood specimen 12/01/2019 3:55 AM 020 4:00 (specimen) EDT AM EDT Resulting Agency Comment Spec In Lab Gretchen Yoon MD CHEMISTRY ORDERABLES Performing Organization Address City/[facility]/[place]IP [place] [address] (ABNORMAL) BMP w/fasting Glucose (12/01/2019 3:55 AM EDT) P athologist Signature Glucose 148 (H) 65 - 99 [facility] Fasting mg/dL [facility] LABORATORY Comment: ?Fasting* Glucose Interpretive C riteria [...] 2009 BUN 11 10 - 20 mg/dL [facility] LABORATORY Creatinine 0.96 0.80 - 1.50 mg/dL [facility] LABORATORY Sodium 132 (L) 135 - [...] Anion Gap 10 5 - 15 mmol/L [facility] LABORATORY Calcium 7.6 (L) 8.5 - [...] of body mass or the acutely ill. [email or web address] eGFR 91 >=60 mL/min/1.73 m?? [facility] Comment: The eGFR was calculated using the CKD-EP I equation. As with all creatinine based estimates of kidney function, eGFR values calculated with the CKD-EPI equation are not accurate in patients wi th acute kidney failure, extremes of body mass or the acutely ill. [email or web address] Specimen Anatomical Collection Method Collection Time Receive d Time (Source) Location / / Volume Laterality Blood specimen 12/01/2019 3:55 AM 020 4:00 (specimen) EDT AM EDT Resulting Agency Comment Spec In Lab Gretchen Yoon MD CHEMISTRY ORDERABLES Performing Organization Address City/State/[place] [address] (ABNORMAL) Hemogram (12/01/2019 3:55 AM EDT) Analysis Performed At Patho [facility] Time Signature WBC 11.0 (H) 4.0 - 9.5 [facility] x10(3)/[facility] LABORATORY RBC 3.46 (L) 4.58 - [facility] 5.54 [facility] x10(6)/[facility] LABORATORY Hemoglobin 10.2 (L) 13.7 - [facility] 16.5 gm/dL [facility] LABORATORY Hematocrit 31.2 (L) 40.5 - [facility] 48.5 % [facility] LABORATORY MCV 90.2 82.9 - [facility] 93.1 [facility] LABORATORY MCH 29.5 27.5 - [facility] 32.1 pg [facility] LABORATORY MCHC 32.7 32.0 - [facility] 35.7 gm/dL [facility] LABORATORY Platelets 98 (L) 145 - 357 [facility] x10(3)/[facility] LABORATORY RDWSD 47.9 (H) 36.0 - [facility] 45.0 [facility] LABORATORY RDWCV 14.6 (H) 11.4 - [facility] 13.8 % [facility] LABORATORY MPV 12.3 7.6 - 12.9 [facility] LABORATORY nRBC % Auto 0.0 % [facility] nRBC Abs Auto 0.000 0.000 - [facility] 0.000 [facility] x10(3)/[facility] LABORATORY Specimen Anatomical Collection Method Collection Time Receive d Time (Source) Location / / Volume Laterality Blood specimen 12/01/2019 3:55 AM 020 4:00 (specimen) EDT AM EDT Resulting Agency Comment Spec In Lab Gretchen Yoon MD HEMATOLOGY ORDERABLES Performing Organization Address City/State/[place] [address] (ABNORMAL) BLOOD GAS 2 ARTERIAL (11/30/2019 10:39 PM EDT) Analysis Performed At [facility] Time Signature pH Art 7.45 7.35 - [facility] 7.45 [facility] LABORATORY pCO2 Art 23 (L) 35 - 45 [facility] LABORATORY pO2 Art 76 (L) 85 - 104 [facility] LABORATORY HCO3 Art 15.3 (L) 20.0 - [facility] 26.0 [facility] mmol/[facility] LABORATORY BE Art -8.7 (L) -3.0 - 3.0 [facility] mmol/L [facility] LABORATORY Hgb Blood Gas 11.7 (L) 13.7 - [facility] 16.5 gm/dL [facility] O2HB Art 94.2 94.0 - [facility] 97.0 % [facility] LABORATORY COHB Art 0.5 % [facility] [...] Organization Address City/State/[place] [address] EKG 12 Lead (11/30/2019 [...] (Bezet) Calculated P 12 degrees MUSE SYSTEM [place] Calculated R 19 degrees MUSE SYSTEM [place] Calculated T -47 degrees MUSE SYSTEM [place] INTERPRETATION Sinus rhythm with Premature supraventricular complexes [...] Yoon MD ECG ORDERABLES Performing Organization Address City/[facility]/ZIP Code Phon e Number MUSE SYSTEM (ABNORMAL) Urinalysis Microscopic Exam (11/30/2019 8:40 PM EDT) P athologist Signature RBC UA 27 (H) 0 - 3 /HPF [facility] LABORATORY WBC UA 4 (H) 0 - 3 /HPF [facility] Hyaline Cast 3 (H) 0 - 2 /LPF [facility] LABORATORY Specimen (Source) Anatomical Collection Method Collection Time Re ceived Time Location / / Volume Laterality Urine specimen 11/30/2019 8:40 11/30/2019 obtained via PM EDT 10:51 PM EDT indwelling urinary catheter (specimen) Resulting Agency Comment Spec In Lab Rossy Winn MD URINE ORDERABLES Performing Organization Address City/[facility]/ZIP Code Phon e Number [place] [phone] (ABNORMAL) Urinalysis with reflex Culture (11/30/2019 8:40 PM EDT) Patholo gist Method Time Signature Glucose UA Negative Negative [facility] mg/dL [facility] LABORATORY Protein UA Negative Negative [facility] mg/dL [facility] LABORATORY Bilirubin UA Negative Negative [facility] mg/dL [facility] LABORATORY Comment: Clinical correlation required for positi ve Urine Bilirubin results as false positive may occur with some drugs and d rug related products. If a false positive is suspected a serum total bili morales should be considered if clinically indicated. Urobilinogen UA Normal Normal mg/dL [facility] LABORATORY pH UA 5.5 5.0 - 8.0 [facility] LABORATORY Blood UA Moderate (A) Negative mg/dL [facility]OR[facility] Ketones UA 40 (A) Negative mg/dL [facility] Nitrite UA Negative Negative [facility] LABORATORY Leukocytes UA Trace (A) Negative [facility] LABORATORY Appearance UA Clear Clear [facility] LABORATORY Spec [place] UA 1.026 1.006 - 1.030 [facility] LABORATORY Color UA Yellow Yellow [facility] LABORATORY Culture Reflexed No [facility] LABORATORY Specimen (Source) Anatomical Collection Method Collection Time Re ceived Time Location / / Volume Laterality Urine specimen 11/30/2019 8:40 11/30/2019 obtained via PM EDT 10:51 PM EDT indwelling urinary catheter (specimen) Resulting Agency Comment Spec In Lab Gretchen Yoon MD URINE ORDERABLES Performing Organization Address City/State/[place] [address] (ABNORMAL) pro-Brain Natriuretic Peptide (11/30/2019 8:30 PM EDT) P athologist Signature ProBNP 2,802 (H) <=125 [facility] pg/mL [facility] LABORATORY Specimen Anatomical Collection Method Collection Time Receive d Time (Source) Location / / Volume Laterality Blood specimen Venous Draw / 11/30/2019 8:30 PM 2019 8:36 (specimen) Unknown EDT PM EDT Resulting Agency Comment Spec In Lab Rossy Winn MD CHEMISTRY ORDERABLES Performing Organization Address City/State/ZIP Code Phon e Number [place] [phone] (ABNORMAL) Troponin (11/30/2019 8:30 PM EDT) athologist Signature Troponin-T 5.04 (H) 0.00 - MELINA MONAE 0.00 ng/mL [facility] LABORATORY Comment: The 99th percentile for Troponin T is le ss than 0.01 ng/mL, any detectable cTnT concentration using this assay should be considered elevated. According to the third universal definit ion of myocardial infarction the following criteria with a clinical prese ntation consistent with acute myocardial ischemia meets the diagnosis for a myocardial infarction (NC). Detection of a rise and/or fall of [...] additional sample may be indicated. Reference: Third Granger Definition of Myocardial Infarction. Journal of the [place] [employer] 2012;60:1581-98 Specimen Anatomical Collection Method Collection Time Receive d Time (Source) Location / / Volume Laterality Blood specimen Venous Draw / 11/30/2019 8:30 PM 2019 8:36 (specimen) Unknown EDT PM EDT Resulting Agency Comment Spec In Lab Rossy Winn MD CHEMISTRY ORDERABLES Performing Organization Address City/State/[place] [address] Magnesium (11/30/2019 8:30 PM EDT) athologist Signature Magnesium 0.79 0.69 - 1.07 [facility]L [facility] LABORATORY Specimen Anatomical Collection Method Collection Time Receive d Time (Source) Location / / Volume Laterality Blood specimen 11/30/2019 8:30 PM 020 8:35 (specimen) EDT PM EDT Resulting Agency Comment Spec In Lab Gretchen Yoon MD CHEMISTRY ORDERABLES Performing Organization Address City/State/[place] [address] (ABNORMAL) Basic Metabolic Panel (non-fasting) (11/30/2019 8:30 PM EDT) athologist Signature Glucose Lvl 132 65 - 199 [facility] mg/dL [facility] LABORATORY Comment: Diabetes: >=200 mg/dL plus symp toms BUN 12 10 - 20 mg/dL [facility] LABORATORY Creatinine 0.94 0.80 - 1.50 mg/dL [facility] LABORATORY Sodium 136 135 - 145 [...] Anion Gap 11 5 - 15 mmol/L [facility] LABORATORY Calcium 7.9 (L) 8.5 - [...] of body mass or the acutely ill. [email or web address] eGFR 93 >=60 mL/min/1.73 m?? [facility] LAB[facility] Comment: The eGFR was calculated using the CKD-EP I equation. As with all creatinine based estimates of kidney function, eGFR values calculated with the CKD-EPI equation are not accurate in patients wi th acute kidney failure, extremes of body mass or the acutely ill. [email or web address] Specimen Anatomical Collection Method Collection Time Receive d Time (Source) Location / / Volume Laterality Blood specimen 11/30/2019 8:30 PM 020 8:35 (specimen) EDT PM EDT Resulting Agency Comment Spec In Lab Gretchen Yoon MD CHEMISTRY ORDERABLES Performing Organization Address [facility] Phon e Number [address] Blood culture (11/30/2019 8:30 PM EDT) Patholo gist Method Time Signature Blood Culture No growth [facility] MON[facility] at 5 days. [facility] LABORATORY Specimen Anatomical Collection Method Collection Time Receive d Time (Source) Location / / Volume Laterality Blood specimen 11/30/2019 8:30 PM 020 9:40 (specimen) EDT PM EDT Comment: L HAND Resulting Agency Comment Spec In Lab Gretchen Yoon MD MICROBIOLOGY - BLOOD ORDERAB LES Performing Organization Address City/[facility] [place] [address] Blood culture (11/30/2019 8:30 PM EDT) Patholo gist Method Time Signature Blood Culture No growth MELINA MONAE at 5 days. [facility] LABORATORY Specimen Anatomical Collection Method Collection Time Receive d Time (Source) Location / / Volume Laterality Blood specimen 11/30/2019 8:30 PM 020 9:40 (specimen) EDT PM EDT Comment: R HAND Resulting Agency Comment Spec In Lab Gretchen Yoon MD MICROBIOLOGY - BLOOD ORDERAB LES Performing Organization Address [facility] Phon e Number [address] XR Chest One View [...] below. ? Electronically signed by: ALBA Watson [facility] ([phone]), at 11/30/2019 8:32 PM Narrative 11/30/2019 8:32 [...] Time Signature pH Art 7.45 7.35 - [facility] 7.45 [facility] LABORATORY pCO2 Art 27 (L) 35 - 45 [facility] mmHg [facility] LABORATORY pO2 Art 68 (L) 85 - 104 [facility] LABORATORY HCO3 Art 18.2 (L) 20.0 - [facility] 26.0 [facility] mmol/[facility] LABORATORY BE Art -5.9 (L) -3.0 - 3.0 [facility] mmol/L [facility] LABORATORY Hgb Blood Gas 12.4 (L) 13.7 - [facility] 16.5 gm/dL [facility] O2HB Art 93.1 (L) 94.0 - [facility] 97.0 % [facility] LABORATORY COHB Art 0.8 % [facility] [...] Organization Address City/State/ZIP Code Phon e Number [place] [phone] HOSPITAL LABOR[address]ORY Drive CT Angiogram [place] of [place] (11/30/2019 4:36 PM EDT) Anatomical [...] CT HEAD WO CONTRAST (GENERIC), CT ANGIOGRAM [place] OF [place] CLINICAL HISTORY: Headache, intracranial hemorrhage suspected F/U on known ICH - assessing for propaga tion TECHNIQUE: CT head performed without intravenous co ntrast administration. CT angiogram [place] of [place] 65 cc Omnipaque 350 administered [...] HEAD WO CONTRAST (GENERI C), CT ANGIOGRAM [place] CLINICAL HISTORY: Headache, intracranial hemorrhage suspected F/U on known ICH - assessing for propaga tion TECHNIQUE: CT head performed without intravenous co ntrast administration. CT angiogram [place] of [place] 65 cc Omnipaque 350 administered [...] CT HEAD WO CONTRAST (GENERIC), CT ANGIOGRAM [place] CLINICAL HISTORY: Headache, intracranial hemorrhage suspected F/U on known ICH - assessing for propaga tion TECHNIQUE: CT head performed without intravenous co ntrast administration. CT angiogram [place] of [place] 65 cc Omnipaque 350 administered [...] HEAD WO CONTRAST (GENERI C), CT ANGIOGRAM [place] CLINICAL HISTORY: Headache, intracranial hemorrhage suspected F/U on known ICH - assessing for propaga tion TECHNIQUE: CT head performed without intravenous co ntrast administration. CT angiogram [place] of [place] 65 cc Omnipaque 350 administered [...] 453 ms MUSE SYSTEM (Bezet) Calculated P [place] 52 degrees MUSE SYSTEM Calculated R [place] 5 degrees MUSE SYSTEM Calculated T [place] -60 degrees MUSE SYSTEM INTERPRETATION Sinus rhythm [...] [place] ? (Age): 1945(74y) Med Rec#: ? [id number] ?Sex: ?M ? Site Loc: ? [facility] ?Ht / Wt: ??178(cm)/64(kg) Pt. Loc: ?[facility] ? BSA: ?1.8 Study Date: ?? 11/30/2019 ?Pt. Type: Inpatient Tape: ? Referring: GILMER Reading: Tello Mejia ([id number]) Poacher Operator: Friend, Lolita Diagnosis: *ST elevation (STEMI) [...] Vmax ?0.58 ? m/sec ? MV deceleration [id number] ? m sec ? MV A-wave Vmax [...] ? Mid-Inferior ?Akinetic ? Mid-Inferoseptal ?Normal ? [place]-Septal ? Normal ? [place]-Anterior ? Normal ? [place]-Lateral ?Normal ? [place]-Inferior ? Hypokinetic ? [place]-Tip ?Normal ? This report has been electronically sign ed by: _ Tello Mejia MD ? 11/30/2019 12: 45:27 Images [facility] and [facility] Procedure Note Tello Mejia MD - 11/30/2019Formatti ng of this note might be different from the original. Procedure: Transthoracic Echocardiogram Patient: RITA ACOSTA(Age): [birth year](74y) Med Rec#: [id number] Sex: M Site Loc: [facility] Ht / Wt: 178(cm)/64(kg) Pt. Loc: [facility] BSA: 1.8 Study Date: 11/30/2019 Pt. Type: Inpatie nt Tape: Referring: DONAYMICMUNIRAJ Reading: Tello Mejia ([id number]) Poacher Operator: Lolita Prado Diagnosis: *ST elevation (STEMI) [...] MV E-wave Vmax 0.58 m/sec MV deceleration [id number] msec MV A-wave Vmax 0.74 m/sec MV [...] Hypokinetic Mid-Posterolateral Hypokinetic Mid-Inferior Akinetic Mid-Inferoseptal Normal [place]-Septal Normal [place]-Anterior Normal [place]-Lateral Normal [place]-Inferior Hypokinetic [place]-Tip Normal This report has been electronically sign ed by: _ Tello Mejia MD 11/30/2019 12:45:27 Images reviewed and interpretation rafaela devin [facility] Cardiac Ultrasound Laboratory Gretchen Yoon [...] Magnesium (11/30/2019 8:30 AM EDT) athologist [facility] Magnesium 0.88 0.69 - 1.07 [facility] mmol/L [facility] LABORATORY Specimen Anatomical Collection Method Collection Time Receive d Time (Source) Location / / Volume Laterality Blood specimen Venous Draw / 11/30/2019 8:30 AM 2019 8:37 (specimen) Unknown EDT AM EDT Resulting Agency Comment Spec In Lab Rossy Winn MD CHEMISTRY ORDERABLES Performing Organization Address City/[facility]/[place] [address] (ABNORMAL) CK (11/30/2019 8:30 AM EDT) athologist [facility] CK, Total 1,645 (H) 0 - 200 [facility]L [facility] LABORATORY Specimen Anatomical Collection Method Collection Time Receive d Time (Source) Location / / Volume Laterality Blood specimen 11/30/2019 8:30 AM 020 8:32 (specimen) EDT AM EDT Resulting Agency Comment Spec In Lab Gretchen Yoon MD CHEMISTRY ORDERABLES Performing Organization Address City/[facility] [place] [address] (ABNORMAL) Troponin (11/30/2019 8:30 AM EDT) athologist [facility] Troponin-T 8.04 (H) 0.00 - [facility]OV 0.00 ng/mL [facility] LABORATORY Comment: result rechecked-rancho The 99th percentile for Troponin T is le ss than 0.01 ng/mL, any detectable cTnT concentration using this assay should be considered elevated. According to the third universal definit ion of myocardial infarction the following criteria with a clinical prese ntation consistent with acute myocardial ischemia meets the diagnosis for a myocardial infarction (NC). Detection of a rise and/or fall of [...] additional sample may be indicated. Reference: Third Granger Definition of Myocardial Infarction. Journal of the [place] [employer] 2012;60:1581-98 Specimen Anatomical Collection Method Collection Time Receive d Time (Source) Location / / Volume Laterality Blood specimen 11/30/2019 8:30 AM 020 8:32 (specimen) EDT AM EDT Resulting Agency Comment Spec In Lab Gretchen Yoon MD CHEMISTRY ORDERABLES Performing Organization Address City/State/ZIP Code Phon e Number [place] [phone]OS[address] Drive EKG 12 Lead (11/30/2019 7:57 AM EDT) Component Value Ref Range Test Analysis Performed Pathologis t Method Time At Signature Ventricular rate 64 BPM MUSE SYSTEM Atrial Rate 64 BPM MUSE SYSTEM P-R Interval 132 ms MUSE SYSTEM QRS Duration 78 ms MUSE SYSTEM Q-T Interval 420 ms MUSE SYSTEM QTC Calculated 433 ms MUSE SYSTEM (Bezet) Calculated P [place] 28 degrees MUSE SYSTEM Calculated R [place] 7 degrees MUSE SYSTEM Calculated T [place] -33 degrees MUSE SYSTEM INTERPRETATION Sinus rhythm [...] Signature Glucose 147 (H) 65 - 99 [facility] Fasting mg/dL [facility] LABORATORY Comment: ?Fasting* Glucose Interpretive C riteria [...] 2009 BUN 13 10 - 20 mg/dL [facility] LABORATORY Creatinine 0.90 0.80 - 1.50 mg/dL [facility] LABORATORY Sodium 135 135 - 145 [...] Anion Gap 11 5 - 15 mmol/L [facility] LABORATORY Calcium 7.5 (L) 8.5 - [...] of body mass or the acutely ill. [email or web address] eGFR 98 >=60 mL/min/1.73 m?? [facility] Comment: The eGFR was calculated using the CKD-EP I equation. As with all creatinine based estimates of kidney function, eGFR values calculated with the CKD-EPI equation are not accurate in patients wi th acute kidney failure, extremes of body mass or the acutely ill. [email or web address] Specimen Anatomical Collection Method Collection Time Receive d Time (Source) Location / / Volume Laterality Blood specimen 11/30/2019 2:15 AM 020 2:29 (specimen) EDT AM EDT Resulting Agency Comment Spec In Lab Gretchen Yoon MD CHEMISTRY ORDERABLES Performing Organization Address City/State/ZIP Code Phon e Number [place] [phone] (ABNORMAL) Hemogram (11/30/2019 2:15 AM EDT) Analysis Performed At Patho logist Time Signature WBC 11.2 (H) 4.0 - 9.5 [facility] x10(3)/[facility] LABORATORY RBC 3.83 (L) 4.58 - [facility] 5.54 [facility] x10(6)/[facility] LABORATORY Hemoglobin 11.4 (L) 13.7 - [facility] 16.5 gm/dL [facility] LABORATORY Hematocrit 35.2 (L) 40.5 - [facility] 48.5 % [facility] LABORATORY MCV 91.9 82.9 - [facility] 93.1 fL [facility] LABORATORY MCH 29.8 27.5 - [facility] 32.1 pg [facility] [facility]OR[facility] MCHC 32.4 32.0 - MLEINA MONAE 35.7 gm/dL [facility] Platelets 122 (L) 145 - 357 MELINA MARSHDOV x10(3)/[facility] LABORATORY RDWSD 49.8 (H) 36.0 - MELINA MONAE 45.0 [facility] LABORATORY RDWCV 14.8 (H) 11.4 - MELINA WHITTENCOCK 13.8 % [facility] MPV 12.1 7.6 - 12.9 MELINA MONAE [facility] LABORATORY nRBC % Auto 0.0 % [facility] nRBC Abs Auto 0.000 0.000 - MELINA MARSHDOV 0.000 [facility] x10(3)/[facility] LABORATORY Specimen Anatomical Collection Method Collection Time Receive d Time (Source) Location / / Volume Laterality Blood specimen 11/30/2019 2:15 AM 020 2:29 (specimen) EDT AM EDT Resulting Agency Comment Spec In Lab Gretchen Yoon MD HEMATOLOGY ORDERABLES Performing Organization Address City/State/[place] [address] (ABNORMAL) CK (11/30/2019 2:15 AM EDT) athologist [facility] CK, Total 1,969 (H) 0 - 200 [facility] DOV unit/L [facility] Specimen Anatomical Collection Method Collection Time Receive d Time (Source) Location / / Volume Laterality Blood specimen 11/30/2019 2:15 AM 020 2:29 (specimen) EDT AM EDT Resulting Agency Comment Spec In Lab Gretchen Yoon MD CHEMISTRY ORDERABLES Performing Organization Address City/State/[place] [address] (ABNORMAL) Troponin (11/30/2019 2:15 AM EDT) athologist [facility] Troponin-T 11.73 (H) 0.00 - MELINA MONAE 0.00 ng/mL [facility] Comment: result rechecked-slw The 99th percentile for Troponin T is le ss than 0.01 ng/mL, any detectable cTnT concentration using this assay should be considered elevated. According to the third universal definit ion of myocardial infarction the following criteria with a clinical prese ntation consistent with acute myocardial ischemia meets the diagnosis for a myocardial infarction (NC). Detection of a rise and/or fall of [...] additional sample may be indicated. Reference: Third Granger Definition of Myocardial Infarction. Journal of the [...] meets the diagnosis for a myocardial infarction (NC). Detection of a rise and/or fall of [...] additional sample may be indicated. Reference: Third Granger Definition of Myocardial Infarction. Journal of the [...] Yoon MD CHEMISTRY ORDERABLES Performing Organization Address City/[facility]/ZIP Code Phon e Number [address] LDL Cholesterol, Direct (11/30/2019 2:15 AM EDT) P athologist Signature LDL Chol 156 mg/dL [facility] LABORATORY Comment: Lowest Risk: <100 mg/dL Lower Risk: 100-129 mg/dL Borderline High Risk: 130-159 mg/dL High Risk: 160-189 mg/dL Very High Risk: >ii=938 mg/dL Specimen Anatomical Collection Method Collection Time Receive d Time (Source) Location / / Volume Laterality Blood specimen 11/30/2019 2:15 AM 020 2:29 (specimen) EDT AM EDT Resulting Agency Comment Spec In Lab Gretchen Yoon MD CHEMISTRY ORDERABLES Performing Organization Address City/[facility]/ZIP Code Phon e Number [address] (ABNORMAL) Hemoglobin A1c (11/30/2019 [...] Mellitus, Diabetes Care 2013; 36: Suppl. 1, S56-28 Est Avg Gluc See note mg/dL ST. [...] with hemoglobinopathies. Additional resources are available on [facility] ADA website. Kiko CARBAJAL, Jenn J, Silas R, et al. ??Tr anslating the A1C assay into estimated average glucose values. ??Diabetes Care 2008:31(8):2122-3849. Specimen Anatomical Collection Method Collection Time Receive d Time (Source) Location / / Volume Laterality Blood specimen 11/30/2019 2:15 AM 020 2:29 (specimen) EDT AM EDT Resulting Agency Comment Spec In Lab Gretchen Yoon MD CHEMISTRY ORDERABLES Performing Organization Address City/State/[place] [address] Lipid Panel (Reflex Direct LDL) (11/30/2019 2:15 AM EDT) athologist Signature Chol, Total 195 mg/dL [facility] Comment: Lower Risk: <200 mg/dL Average Risk: 200-239 mg/dL Higher Risk: >if=667 mg/dL Triglycerides 93 mg/dL [facility] LAB[facility] Comment: Average Risk/Lower Risk: <150 mg/dL Borderline High Risk: 150-199 mg/dL High Risk: 200-499 mg/dL Very High Risk: >cv=714 mg/dL HDL 32 mg/dL [facility] LAB[facility] Comment: Males: ?? Higher Risk: <40 mg/dL Females: ?? HIgher Risk: <50 mg/dL LDL Cholesterol 144 mg/dL [facility] Comment: Lowest Risk: <100 mg/dL Lower Risk: 100-129 mg/dL Borderline High Risk: 130-159 mg/dL High Risk: 160-189 mg/dL Very High Risk: >ey=004 mg/dL Chol/HDL Ratio 6.1 ratio [facility] Lipid Interpretation See Note [facility] Comment: Lipid management should be guided by a p atient? s ASCVD risk, goals and preferences. ACC/AHA Guidelines recommend high intens ity statin if clinical ASCVD or LDL greater than or equal to 190 mg/dL. http://[email or web address]/[email or web address]-Rhjdzabsk Adults aged 40-75 with LDL 70-189 mg/dL should have their 10 year ASCVD risk estimated with the ACC/AHA ASCVD risk es timator http://tools.acc.org/OATSS-Zbwg-Mntdfeit r/ Statin should be discussed if risk [...] Organization Address City/State/[place] [address] (ABNORMAL) CK (11/29/2019 6:35 PM EDT) athologist Signature CK, Total 2,780 (H) 0 - 200 [facility] unit/L [facility] Specimen Anatomical Collection Method Collection Time Receive d Time (Source) Location / / Volume Laterality Blood specimen 11/29/2019 6:35 PM 020 6:53 (specimen) EDT PM EDT Resulting Agency Comment Spec In Lab Gretchen Yoon MD CHEMISTRY ORDERABLES Performing Organization Address City/State/[place] [address] (ABNORMAL) Troponin (11/29/2019 6:35 PM EDT) athologist Signature Troponin-T 17.60 (H) 0.00 - [facility] 0.00 ng/mL [facility] Comment: result rechecked-az The 99th percentile for Troponin T is le ss than 0.01 ng/mL, any detectable cTnT concentration using this assay should be considered elevated. According to the third universal definit ion of myocardial infarction the following criteria with a clinical prese ntation consistent with acute myocardial ischemia meets the diagnosis for a myocardial infarction (NC). Detection of a rise and/or fall of [...] additional sample may be indicated. Reference: Third Granger Definition of Myocardial Infarction. Journal of the [place] College [employer] 2012;60:1581-98 Specimen Anatomical Collection Method Collection Time Receive d Time (Source) Location / / Volume Laterality Blood specimen 11/29/2019 6:35 PM 020 6:53 (specimen) EDT PM EDT Resulting Agency Comment Spec In Lab Gretchen Yoon MD CHEMISTRY ORDERABLES Performing Organization Address City/State/ZIP Code Phon e Number [place] [id number] EKG 12 Lead (11/29/2019 3:58 PM EDT) [facility] gist Method Time Signature Ventricular rate 73 BPM MUSE SYSTEM Atrial Rate 73 BPM MUSE SYSTEM P-R Interval 152 ms MUSE SYSTEM QRS Duration 84 ms MUSE SYSTEM Q-T Interval 404 ms MUSE SYSTEM QTC Calculated 445 ms MUSE SYSTEM (Bezet) Calculated P [place] 50 degrees MUSE SYSTEM Calculated R [place] -4 degrees MUSE SYSTEM Calculated T [place] 19 degrees MUSE SYSTEM INTERPRETATION Sinus rhythm [...] below. ? Electronically signed by: Devin Solis [facility] ([phone]), at 11/29/2019 5:06 PM --------ORIGINAL REPORT -------- EXAMINATION: XR CHEST ONE VIEW CLINICAL HISTORY: stemi (as entered by o [facility] provider in the order requisition) [...] lung apex is excluded from the imaged yaysp-by-oekv. IMPRESSION: 1. ??New right internal jugular pulmonar [...] below. ? Electronically signed by: Devin Solis [facility] ([phone]), at 11/29/2019 4:36 PM Impressions 11/29/2019 4:36 [...] below. ? Electronically signed by: Devin Solis [facility] ([phone]), at 11/29/2019 4:36 PM Narrative 11/29/2019 4:36 [...] lung apex is excluded from the imaged [id number]-wurz. Procedure Note Estefani Harris MD - 11/29/2019Formattin [...] lung apex is excluded from the imaged [id number]. IMPRESSION 1. New right internal jugular pulmonary [...] (ABNORMAL) Differential, Automated (11/29/2019 2:32 PM EDT) [facility] Method Time Signature Neutrophils % 83.8 % [facility] Neutr Abs (ANC) 12.12 (H) 1.70 - [facility] 6.10 [facility] x10(3)/[facility] LABORATORY Lymphocytes % 9.1 % [facility] Lymphocytes Abs 1.3 0.9 - 3.2 [facility] x10(3)/[facility] LABORATORY Monocytes % 6.2 % [facility] Monocyte Abs 0.9 0.3 - 0.9 [facility] x10(3)/[facility] LABORATORY Eosinophils % 0.0 % [facility] Eosinophils Abs 0.0 0.0 - 0.4 [facility] x10(3)/[facility] LABORATORY Basophils % 0.3 % [facility] Basophils Abs 0.0 0.0 - 0.1 [facility] x10(3)/[facility] LABORATORY Immature Gran % 0.60 % [...] Organization Address City/State/[place] [address] (ABNORMAL) Hemogram (11/29/2019 2:32 PM EDT) Analysis Performed At Patho logist Time Signature WBC 14.5 (H) 4.0 - 9.5 [facility] x10(3)/[facility] LABORATORY RBC 4.53 (L) 4.58 - [facility] 5.54 [facility] x10(6)/[facility] LABORATORY Hemoglobin 13.1 (L) 13.7 - [facility] 16.5 gm/dL [facility] LABORATORY Hematocrit 40.8 40.5 - [facility] 48.5 % [facility] MCV 90.1 82.9 - [facility] LABORATORY MCH 28.9 27.5 - [facility] 32.1 pg [facility] LAB[facility]ATORY MCHC 32.1 32.0 - [facility] 35.7 gm/dL [facility] LAB[facility]ORY Platelets 184 145 - 357 [facility] x10(3)/[facility] LABORATORY RDWSD 47.8 (H) 36.0 - [facility] DOV 45.0 [facility] LABORATORY RDWCV 14.5 (H) 11.4 - [facility] DOV 13.8 % [facility] LABORATORY MPV 11.9 7.6 - 12.9 [facility] nRBC % Auto 0.0 % [facility] nRBC Abs Auto 0.000 0.000 - [facility] DOV 0.000 [facility] x10(3)/[facility] LABORATORY Specimen Anatomical Collection Method Collection Time Receive d Time (Source) Location / / Volume Laterality Blood specimen 11/29/2019 2:32 PM 020 2:55 (specimen) EDT PM EDT Resulting Agency Comment Spec In Lab Darrell Glasgow MD HEMATOLOGY ORDERABLES Performing Organization Address City/State/ZIP Code Phon e Number [address] (ABNORMAL) CK (11/29/2019 2:32 PM EDT) athologist Signature CK, Total 3,282 (H) 0 - 200 [facility] unit/L [facility] Specimen Anatomical Collection Method Collection Time Receive d Time (Source) Location / / Volume Laterality Blood specimen 11/29/2019 2:32 PM 020 2:32 (specimen) EDT PM EDT Resulting Agency Comment Spec In Lab Gretchen Yoon MD CHEMISTRY ORDERABLES Performing Organization Address City/[facility]/[place] [address] (ABNORMAL) Troponin (11/29/2019 2:32 PM EDT) athologist Signature Troponin-T 20.33 (H) 0.00 - [facility] 0.00 ng/mL [facility] Comment: The 99th percentile for Troponin T is le ss than 0.01 ng/mL, any detectable cTnT concentration using this assay should be considered elevated. According to the third universal definit ion of myocardial infarction the following criteria with a clinical prese ntation consistent with acute myocardial ischemia meets the diagnosis for a myocardial infarction (NC). Detection of a rise and/or fall of [...] additional sample may be indicated. Reference: Third Granger Definition of Myocardial Infarction. Journal of the [place] College [employer] 2012;60:1581-98 Specimen Anatomical Collection Method Collection Time Receive d Time (Source) Location / / Volume Laterality Blood specimen 11/29/2019 2:32 PM 020 2:32 (specimen) EDT PM EDT Resulting Agency Comment Spec In Lab Gretchen Yoon MD CHEMISTRY ORDERABLES Performing Organization Address [facility] [place] [address] (ABNORMAL) APTT (11/29/2019 2:32 PM EDT) athologist Signature PTT 114 25 - 37 [facility] (Critical) [facility] LABORATORY Comment: Critical [...] ORDERABLES Performing Organization Address [facility] [place] [address] (ABNORMAL) Prothrombin Time (11/29/2019 2:32 PM EDT) P athologist Signature PT 13.5 (H) 9.4 - 12.5 [facility] LABORATORY INR 1.2 [facility] [...] Organization Address City/State/[place] [address] (ABNORMAL) Hepatic Function Panel (11/29/2019 2:32 PM EDT) athologist Signature Total Protein 6.3 6.1 - 8.0 [facility] gm/dL [facility]ORY Albumin 3.6 3.2 - 5.2 [facility] gm/dL [facility] LABORATORY AST 257 (H) 0 - 39 [facility]L [facility] ALT 50 0 - 55 [facility]L [facility] LABORATORY Alk Phos 84 40 - 130 [facility] unit/L [facility] LAB[facility]ATORY Total 0.3 0.2 - 1.3 [facility] Bilirubin mg/dL [facility] LABORATORY Bili, Direct 0.1 0.0 - 0.3 [facility] DOV mg/dL [facility] LABORATORY Specimen Anatomical Collection Method Collection Time Receive d Time (Source) Location / / Volume Laterality Blood specimen 11/29/2019 2:32 PM 020 2:32 (specimen) EDT PM EDT Resulting Agency Comment Spec In Lab Gretchen Yoon MD CHEMISTRY ORDERABLES Performing Organization Address City/[facility]/[place] [address] (ABNORMAL) pro-Brain Natriuretic Peptide (11/29/2019 2:32 PM EDT) P athologist Signature ProBNP 272 (H) <=125 pg/mL [facility] LABORATORY Specimen Anatomical Collection Method Collection Time Receive d Time (Source) Location / / Volume Laterality Blood specimen 11/29/2019 2:32 PM 020 2:32 (specimen) EDT PM EDT Resulting Agency Comment Spec In Lab Gretchen Yoon MD CHEMISTRY ORDERABLES Performing Organization Address City/[facility]/[place] [address] Magnesium (11/29/2019 2:32 PM EDT) athologist Signature Magnesium 0.76 0.69 - 1.07 [facility] mmol/L [facility] LABORATORY Specimen Anatomical Collection Method Collection Time Receive d Time (Source) Location / / Volume Laterality Blood specimen 11/29/2019 2:32 PM 020 2:32 (specimen) EDT PM EDT Resulting Agency Comment Spec In Lab Gretchen Yoon MD CHEMISTRY ORDERABLES Performing Organization Address City/State/ZIP Code Phon e Number [address] (ABNORMAL) Basic Metabolic Panel (non-fasting) (11/29/2019 2:32 PM EDT) athologist Signature Glucose Lvl 149 65 - 199 [facility] mg/dL [facility] LAB[facility]ORY Comment: Diabetes: >=200 mg/dL plus symp toms BUN 16 10 - 20 mg/dL [facility] LABORATORY Creatinine 0.94 0.80 - 1.50 mg/dL [facility] LABORATORY Sodium 135 135 - 145 [...] Anion Gap 15 5 - 15 mmol/L [facility] LABORATORY Calcium 8.0 (L) 8.5 - [...] of body mass or the acutely ill. http://Xceligent/DHnkf eGFR 93 >=60 mL/min/1.73 m?? [facility] LAB[facility] Comment: The eGFR was calculated using the CKD-EP I equation. As with all creatinine based estimates of kidney function, eGFR values calculated with the CKD-EPI equation are not accurate in patients wi th acute kidney failure, extremes of body mass or the acutely ill. [email or web address]/[facility]MANnkf Specimen Anatomical Collection Method Collection Time Receive d Time (Source) Location / / Volume Laterality Blood specimen 11/29/2019 2:32 PM 020 2:32 (specimen) EDT PM EDT Resulting Agency Comment Spec In Lab Gretchen Yoon MD CHEMISTRY ORDERABLES Performing Organization Address City/[facility] [place] [address] EKG 12 Lead (11/29/2019 11:38 AM EDT) [facility] gist Method Time Signature Ventricular rate 60 BPM MUSE SYSTEM Atrial Rate 60 BPM MUSE SYSTEM P-R Interval 140 ms MUSE SYSTEM QRS Duration 86 ms MUSE SYSTEM Q-T Interval 474 ms MUSE SYSTEM QTC Calculated 474 ms MUSE SYSTEM (Bezet) Calculated P [place] 48 degrees MUSE SYSTEM Calculated R [place] 14 degrees MUSE SYSTEM Calculated T [place] 58 degrees MUSE SYSTEM INTERPRETATION Normal sinus [...] Yoon MD ECG ORDERABLES Performing Organization Address City/[facility]/ZIP [facility] Phon e Number MUSE SYSTEM CARDIAC CATHETERIZATION (11/29/2019 11:15 AM EDT) Anatomical Region Laterality Modality Other Specimen (Source) Anatomical Location Collection Method / Collectio n Time Received Time / Laterality Volume Narrative 11/30/2019 1:09 PM EDT ?[facility] ? Cardiac Cathete rization/Intervention Report ? Patient Name: Salinas, Angel Luis H. ? Procedure Date: 11/29/2019 ? A #: [id number] ? Primary Physician: Young, Gretchen N ? Case #: [id number] ? File Name: [id number] ? Catheterization Order Number: [id number] ? [facility] ? Final Report [place], [place] ? Patient Name: ? Angel Luis Salinas ? ID#: ?[id number] ? : ?1945 ? Procedure Date: ? [...] procedure was Emergent. The indication for ?the record label intern visit is ACS less than or equal [...] dose administered prior to arrival in the record label intern. ?Recommended anti-platelet/anti- thrombotic regimen: ?Continue aspirin 81 mg daily fo r indefinitely. ?Continue clopidogrel 75 mg marco a y for 12 months then stop. ?These recommendations are made at the time of the intervention. Patient ?and provider preferences or a c hanging clinical situation may require ?modification of this regimen. C marvult [facility] Interventional Cardiology for ?questions. ? Conclusions: ?* [...] might be different from the original. [facility] Cardiac Catheterization/Intervention Re port Patient Name: Angel Luis Salinas Procedure Date: 11/29/2019 A #: [id number] Primary Physician: Gretchen Yoon Case #: [id number] File Name: [id number] Catheterization Order Number: [id number] [facility] Final Report [place], [place] Patient Name: Angel Luis Salinas ID#: [id number] : 1945 Procedure Date: November 29, [...] e was Emergent. The indication for the record label intern visit is ACS less than or equal [...] for the procedure was Emergent. The [facility] indication for the procedure was [...] this intervention was 10%. The final TI NC flow was 2. Distal 90% Thrombectomy and [...] this intervention was 10%. The final TI NC flow was 2. Vascular Access: Vascular Access [...] administered prior t o arrival in the record label intern. Recommended anti-platelet/anti-thrombot ic regimen: Continue aspirin 81 [...] Signature POC pH 7.33 (L) 7.35 - [facility] 7.45 [facility] LABORATORY POC PCO2 33 (L) 35 - 45 [facility] mmHg [facility] LABORATORY POC PO2 56 (L) 85 - 104 [facility] LABORATORY POC Base Excess -8.0 (L) -3.0 - 3.0 [facility] K mmol/L [facility] LABORATORY POC HCO3 17.4 (L) 20.0 - [facility] 26.0 [facility] mmol/[facility] LABORATORY POC Sodium 137 135 - 145 [facility] mmol/L [facility] LABORATORY POC Potassium 3.6 3.5 - 5.0 [facility] mmol/L [facility] POC Ionized Ca 1.15 1.15 - [facility] 1.33 [facility] mmol[facility] POC Hematocrit 37.0 (L) 40.0 - [facility] 51.0 % [facility] LABORATORY POC Calc Hgb 12.6 (L) 13.7 - [facility] 17.5 gm/dL [facility] LABORATORY Comment: The calculation of hemoglobin f rom hematocrit assumes a normal MCHC. POC Bgas Loc CC LAB [facility] LABORATORY Specimen Anatomical Collection Method Collection Time Receive d Time (Source) Location / / Volume Laterality Blood specimen 11/29/2019 9:17 AM 020 7:35 (specimen) EDT AM EDT Gretchen Yoon MD CHEMISTRY ORDERABLES Performing Organization Address City/State/[place] [address] EKG 12 Lead (11/29/2019 9:01 AM EDT) Component Value Ref Range Test Analysis Performed Pathologis t Method Time At Signature Ventricular rate 80 BPM MUSE SYSTEM Atrial Rate 79 BPM MUSE SYSTEM QRS Duration 94 ms MUSE SYSTEM Q-T Interval 436 ms MUSE SYSTEM QTC Calculated 502 ms MUSE SYSTEM (Bezet) Calculated R [place] 54 degrees MUSE SYSTEM Calculated T [place] 80 degrees MUSE SYSTEM INTERPRETATION Normal sinus rhythm MUSE SYSTEM Inferior infarct , possibly acute Prolonged QT * ACUTE NC ?? Consider right ventricular involvement in acute [...] 150 mg, Intravenous, ONCE, 1 dose, On [place] 12/07/19 at 1315, Warning Vesicant/Irritant Medication , [...] CONTINUOUS, Starting on 11/29/19 at 1930, Until [place] 11/30/19 at 0029, Please stop drip once [...] Intravenous, ONCE PRN, 1 dose, Starting on [place] 11/30/19 at 1636, Until [place] 11/30/19 at 1636, Per Protocol, Warning Vesicant/Irritant [...] mL/hr 250 mL/hr, Intravenous, CONTINUOUS, Starting on [place] 12/07/19 at 0145, Until [place] 12/07/19 at 0239 levoFLOXacin (LEVAQUIN) 750 mg in New Bag 11/30/2019 11:03 PM EDT 750 mg 100 mL/hr dextrose 5% 150 mL 750 mg, Intravenous, at 100 mL/hr, EVERY 24 HOURS, First dose on [place] 11/30/19 at 2300, Until Discontinued, Routine, Indication [...] 2 g, Intravenous, ONCE, 1 dose, On 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
Administer for serum potassium (mMol/L) of 3.9 - 4 See instructions for Potassium Protocol in online policies.
Routine Or potassium chloride ER (K-Dur/Klor-Con) tablet 40 mEqJump to med 40 mEq, Oral, EVERY 4 HOURS PRN, Startin g [place] 11/30/19 at 2016, Until Sun12/08/19 at 1811, hypokalemia
Administer for serum potassium (mMol/L) of 3.6 - 3.8 See instructions for Potassium Protocol in online policies.
Routine documented in this encounter Care Teams Sleep Lab Technician Relationship Specialty Start Date End Date France Lam MD PCP - General 05/02/13 02/04/20 [address] [place] [address] documented as of this encounter
--- OUTSIDE RECORDS SUMMARY | 2022-05-02 11:22 | XMS_ITS | Encounter Summary ---
:1945 Author Organization [facility] [place] [address] Care Team Providers Name Role Phone France Lam MD Primary Care Provider Encounter Details Date Type Department Care Team Description 11/30/2019 Orders Only Cardiology [facility] [place] [address] Social History Tobacco Use Types Packs/Day [...] fajardo ? (Age): 1945(74y) Med Rec#: ? [id number] ?Sex: ?M ? Site Loc: ? Ht / Wt: ??(cm)/ (kg) ? Pt. Loc: ? Study Date: ?? 11/29/2019 ?Pt. Type: Tape: ? Referring: Faustino Garduno Reading: Dawit Mejia ([id number]) Cottonseed Meat Presser: [employer] Repairer Shoe Sticks: Cedric Eric ([id number]) Interpreting Fellow: Cedric Eric ([id number]) Diagnosis: SUMMARY: 1. Limited bedside echocardiogram perfor med by mortgage protection specialist gas turbine powerplant mechanic for hypotension following inferior STEMI . 2. [...] ? Mid-Inferior ?Akinetic ? Mid-Inferoseptal ?Hypokinetic ? Stanton-Septal ? Normal ? Stanton-Anterior ? Normal ? Stanton-Lateral ?Normal ? Stanton-Inferior ? Hypokinetic ? Stanton-Tip ?Normal ? This report has been electronically sign ed by: _ Dawit Mejia MD ? 11/30/2019 12: 53:59 Images reviewed and interpretation [email or web address] [email or web address] [facility] Cardiac Ultrasound Laboratory Procedure Note Dawit Mejia MD - 11/30/2019Formatti ng of this note might be different from the original. Procedure: Transthoracic Echocardiogram Patient: domenica ACOSTA(Age): [age]y) Med Rec#: [id number] Sex: M Site Loc: Ht / Wt: (cm)/ (kg) Pt. Loc: Study Date: 11/29/2019 Pt. Type: Tape: Referring: Faustino Garduno Reading: Dawit Mejia ([id number]) Cotton[employer] Meat Presser: [employer] Repairer Shoe Sticks: Cedric Eric ([id number]) Interpreting Fellow: Cedric Eric ([phone]) Diagnosis: SUMMARY: 1. Limited bedside echocardiogram perfor med by mortgage protection specialist gas turbine powerplant mechanic for hypotension following inferior STEMI . 2. [...] Normal Mid-Posterolateral Akinetic Mid-Inferior Akinetic Mid-Inferoseptal Hypokinetic Stanton-Septal Normal Stanton-Anterior Normal Stanton-Lateral Normal Stanton-Inferior Hypokinetic Stanton-Tip Normal This report has been electronically sign ed by: _ Dawit Mejia MD 11/30/2019 12:53:59 Images reviewed and interpretation verif ied [facility] Cardiac Ultrasound Laboratory Unknown ECHO ORDERABLES documented in this encounter Visit Diagnoses Not on filedocumented in this encounter Care Teams Tumble Tailstock Turret Lathe Operator Relationship Specialty Start Date End Date France Lam MD PCP - General 05/02/13 02/04/20 [address] [place] [address] documented as of this encounter
--- OUTSIDE RECORDS SUMMARY | 2022-05-02 11:23 | XMS_ITS | Encounter Summary ---
:1945 Author Organization [facility] [place] [address] Care Team Providers Name Role Phone France Lam MD Primary Care Provider Encounter Details Date Type Department Care Team Description 11/29/2019 External Results [place] [address] Social History Tobacco Use Types Packs/Day [...] filedocumented in this encounter Care Teams Welfare Administrator Relationship Specialty Start Date End Date France Lam MD PCP - General 05/02/13 02/04/20 [address] [place] [address] documented as of this encounter
--- OUTSIDE RECORDS SUMMARY | 2022-05-02 11:23 | XMS_ITS | Encounter Summary ---
:1945 Author Organization [facility] Address [facility] [place] [address] Care Team Providers Name Role Phone France Lam MD Primary Care Provider Reason for Visit Reason Comments Claudication Encounter Details Date Type Department Care Team Description 05/13/2013 Office Visit Vascular Surgery at [facility] from [facility] MD Bobby peripheral vascular [facility] dis ease, left ([address] [place]) [place], [place] VASCULAR SURGERY [address] [place] [address] [phone] Social History Tobacco Use Types Packs/Day Years [...] unspecified documented in this encounter Care Teams Rouge Sifter And Miller Relationship Specialty Start Date End Date France Lam MD PCP - General 05/02/13 02/04/20 [address] [place] [address] documented as of this encounter
--- OUTSIDE RECORDS SUMMARY | 2022-05-02 11:23 | XMS_ITS | Encounter Summary ---
:1945 [place] [address] Care Team Providers Name Role Phone France Lam MD Primary Care Provider Reason for Visit Auth/Cert Specialty Diagnoses / Procedures Referred By Contact Refer red To Contact Diagnoses STEMI (ST elevation myocardial infarction) STEMI Procedures CARDIAC CATHETERIZATION Referral ID Status Reason Start Date Expiration Date Visits Requ ested Visits Authorized [id number] 1 1 Encounter Details Date Type Department Care Team Description 11/29/2019 Surgery Grey Washer Gretchen Corral, CARDIAC CATHETERIZATION [facility] [place] [address] [place] [id number] [phone] (Wo rk) Social History Tobacco Use Types [...] Luis Salinas Patient Age: 74 y.o. Language: Lithuanian Race: White Ethnicity: Not nor Admit date: [...] months on: antiplatelet therapy at discretion of logging rafter laborer - Repeat TTE in 3 months to reassess LV function - Repeat BMP in 1-2 weeks given recent start lisinopril - Referred to lipid clinic for consideration of PCSK-9 inhibitor given STEMI with intolerance of statins - Started on amiodarone this admission for recurrent rapid atrial flutter with rates ~170, recommendcontinued assessment of necessity of rhythm control strategy with logging rafter laborer - Amiodarone monitoring recommendations as below - [...] please contact your inpatient physician through the [facility] Rubber Goods Tester . Issues after hours and on weekends [...] took two full strength aspirinand came to [facility] ED. At there was found [...] and Compazine. He was transferred directly to [facility] via [facility] for further management. Patient had an emergent PCI with 3 MACARIO stents placed to his RCA, with mild disease of LCX (report pending) at [facility]. He was found to be persistently hypotensive requiring Levo up to 10mcg/min. He was transferred to [facility] after the cath procedure. Bedside RHC showed CI 2.12, PAWP 11, PAP 38/15 indicating hypovolemic state. He received 1L bolus of NS with improvement of his blood pressure to 124/61. History of PAD, HLD - had side reactions to statins - so taking niacin and red rye grain. Chronic active smoker with more than 65 pack years. Family history of MA in father and two uncles. He's takingbaby [...] ip as described above. On arrival at [facility] he was taken for cardiac cath where [...] priority for the procedure was Emergent. [facility] procedure was STEMI [...] number below. Electronically signed by: Estefani Harris [facility] ([phone]), at 11/29/2019 4:[address] Head wo Contrast (Generic) (Exam End: 11/30/2019 10:41 AM) Impression Focal hemorrhage with small amount of adjacent edema projecting in the region of the left optic tract. Thank you for letting us participate in the care of this patient. For questions regarding this report, please contact the number below. Electronically signed by: Angel Luis Barboza MD, [facility] ([phone]), at 11/30/2019 12:[address] Head wo [...] below. Electronically signed by: [facility] ([phone]), at 11/30/2019 5:[address] Angiogram [place] (Exam End: 11/30/2019 4:36 PM) Impression Head CT: Stable hemorrhage in the region of the left optic tract. CTA: Negative exam. No abnormal vasculature in the area of hemorrhage. Thank you for letting us participate in the care of this patient. For questions regarding this report, please contact the number below. Electronically signed by: Angel Luis Barboza MD, [facility] ([phone]), at 11/30/2019 5:04 PM MRI Brain wo [...] signed by: Angel Luis Barboza MD, [facility] ([phone]), at 12/01/2019 8:02 PM XR Chest One [...] number below. Electronically signed by: Merari Collins [facility] ([phone]), at 12/01/2019 3:53 PM XR Chest One [...] number below. Electronically signed by: Roselyn Luciano [facility] ([phone]), at 12/04/2019 6:16 PM MRI Brain wwo Contrast (Generic) (Exam End: 12/05/2019 7:59 PM) Impression No significant interval change. Thank you for letting us participate in the care of this patient. For questions regarding this report, please contact the number below. Electronically signed by: Merari Collins [facility] ([phone]), at 12/05/2019 10:[address] Head wo [...] number below. Electronically signed by: Merari Collins [facility] ([phone]), at 12/06/2019 10:06 PM Pending Studies and Lab Data: N/A Discharge Conditions/Prognosis: stable Discharge to: home Updated Allergies/ADRs: Allergies Allergen Reactions ??? Penicillins Pt doesn't remember reaction ??? Keezfnd-Osg-Uau Reductase Inhibitors Stiff neck, upset stomach, back [...] medications at another hospital and then at [facility] you had a stent placed in a [...] FOR ONE MONTH AND THEN STOP. Your logging rafter laborer may tell you to start this medication again after one year. Clopidogrel (Plavix) 75 mg daily - This medication will help prevent clots from forming in your blood, which will help protect the stent that was placed in your heart vessel. TAKE THIS FOR ONE YEAR ANDTHEN DISCUSS WITH YOUR FOLDER INSPECTOR WHETHER TO STOP. Amiodarone 400mg twice [...] follow up: Your primary care provider and logging rafter laborer will manage your blood thinner (apixaban). You do not need lab monitoring of this medication. Diet: Please consume a healthy diet low in cholesterol Follow up Appointments: 12/10/2019 at 3:10PM with PCP Angel Luis Lott Future Appointments Date Time Provider Department Center 12/23/2019 1:30 PM Alfreda Salas APRN [facility] [id number] 12/26/2019 9:40 AM Merlin Sanchez MD [facility] CARD 4A [facility] 12/30/2019 3:40 PM Gretchen Yoon MD [address] Future Appointments and Orders Future Appointments and Orders Future Appointments Provider Department Dept Phone 12/23/2019 1:30 PM Alfreda Salas APRN Neurosurgery at [facility] Arrive at: Home [phone] Please do not come in for this visit. Your provider will call you at the number you provided. 12/26/2019 9:40 AM Merlin Sanchez MD Cardiology at [facility] Arrive at: Home [phone] Please do not come in for this visit. Your provider will call you at the number you provided. 12/30/2019 3:40 PM Gretchen Yoon MD Cardiology at [facility] Arrive at: Home [phone] Please do not come in for this visit. Your provider will call you at the number you provided. Future Orders Complete By Expires Referral to Cardiac Rehab [[id number] Custom] As directed Process Instructions: If no progress note charted, please enter Clinical details in comments. Scheduling Instructions: Questions: My question or request is: STEMI. Cardiac rehab at [facility] Referral to [facility] [REF43 Custom] As directed Process Instructions: If no progress note charted, please enter Clinical details in comments. Scheduling Instructions: Questions: My question or request is: patient with inferior stemi with history of statin allergy (rash) - please evaluate for psck9 inhibitor. Referral to Home Health - at DISCHARGE [FYN3272 CPT(R)] As directed Process Instructions: Scheduling Instructions: Comments: DOCUMENTATION FOR VNA SERVICES PATIENT'S LOCATION: Angel Luis Corcoran [address] [address] (home) Ripsaw Operator's Name: Self In discussion with the attending physician, it is certified that this patient is under his/her care and that MD, or an MOTION PICTURE SET GRIP, BELT BRANDER, or PA who is working directly with him/her, had a nzgq-sc-vgqq encounter that meets the physician gseo-yq-qjjr encounter requirements with this patient on 12/07/2019. [...] for managing ADLs. HOME HEALTH CARE AGENCY: [facility], PHONE: [phone] FAX: [phone] Start of care: 24-48 hours after hospital [...] MD [address] / [place] [address] All A agencies which cover the area of patient's residence have been reviewed, either verbally or in writing, and patient/family have chosen the home health care agency noted. Questions: Agency name and contact information: [facility] Patient location post discharge: Home What services are requested: Registered Nurse Physical Therapy Occupational Therapy Start date: Responsible MD post discharge contact info: PCP Your PCP: France Lam MD [phone] For questions regarding this document or issues relating to this hospitalization on the Cardiology Service, please contact your inpatient physician through the [facility] Rubber Goods Tester . Issues after hours and on weekends will be handled by the Track Oiler on-call. Patient Instructions: Neurology Your Diagnosis: Left [...] follow-up appointment in the neurology clinic at [facility]. See below for the appointment [...] 1:30 PM Alfreda Salas APRN Neurosurgery at [facility] Arrive at: Home [phone] Please do not come in for this visit. Your provider will call you at the number you provided. 12/26/2019 9:40 AM Merlin Sanchez MD Cardiology at [facility] Arrive at: Home [phone] Please do not come in for this visit. Your provider will call you at the number you provided. 12/30/2019 3:40 PM Gretchen Yoon MD Cardiology at [facility] Arrive at: Home [phone] Please do not come in for this visit. Your provider will call you at the number you provided. Future Orders Complete By Expires Referral to Cardiac Rehab [[id number] Custom] As directed Process Instructions: If no progress note charted, please enter Clinical details in comments. Scheduling Instructions: Questions: My question or request is: STEMI. Cardiac rehab at [facility] Referral to [facility] [REF43 Custom] As directed Process Instructions: If no progress note charted, please enter Clinical details in comments. Scheduling Instructions: Questions: My question or request is: patient with inferior stemi with history of statin allergy (rash) - please evaluate for psck9 inhibitor. Referral to Home Health - at DISCHARGE [LVJ7313 CPT(R)] As directed Process Instructions: Scheduling Instructions: Comments: DOCUMENTATION FOR VNA SERVICES PATIENT'S LOCATION: [address] [address] (home) Ripsaw Operator's Name: Self In discussion with the attending physician, it is certified that this patient is under his/her care and that MD, or an MOTION PICTURE SET GRIP, BELT BRANDER, or PA who is working directly with him/her, had a tetz-gr-xlib encounter that meets the physician myxx-gp-oljk encounter requirements with this patient on 12/07/2019. [...] for managing ADLs. HOME HEALTH CARE AGENCY: [facility], PHONE: [phone] FAX: [phone] Start of care: 24-48 hours after hospital [...] MD [address] / [place] [address] All A agencies which cover the area of patient's residence have been reviewed, either verbally or in writing, and patient/family have chosen the home health care agency noted. Questions: Agency name and contact information: [facility] Patient location post discharge: Home What services are requested: Registered Nurse Physical Therapy Occupational Therapy Start date: Responsible MD post discharge contact info: PCP Discharge References/Attachments Atrial Fibrillation (Lithuanian) Cardiac Rehabilitation (Lithuanian) Heart Failure (Lithuanian) Heart Failure: Limiting Sodium (Lithuanian) Hemorrhagic Stroke: General Info (Lithuanian) Smoking: Stopping (Lithuanian) Stroke Rehabilitation: General Info (Lithuanian) Pulmonary Embolism (Lithuanian) Riki Stevens MD PGY-3, Internal Medicine Cardiology S2, #1270 Associated attestation - Paris Dodd MD - 12/09/2019 4:44 PM EDT Cardiology Attending Discharge Addendum I was the assigned attending logging rafter laborer for this clinical encounter. For the purposes [...] complications include novel onset, paroxysmal atrial fibrillation [[id number]: 5] & L-sided diplopia with potential hemineglect [...] My contact information: Paris Matt MD MPH [address], [place] [address] (office); Pager #[phone] Email: documented in this encounter Discharge Instructions Patient InstructionsFiRiki de jesus MD - 12/02/2019 9:56 AM EDT Images from the original note were not included. Why you were hospitalized: You had a heart attack. You received clot-busting medications at another hospital and then at [facility] you had a stent placed in a [...] FOR ONE MONTH AND THEN STOP. Your logging rafter laborer may tell you to start this medication again after one year. Clopidogrel (Plavix) 75 mg daily - This medication will help prevent clots from forming in your blood, which will help protect the stent that was placed in your heart vessel. TAKE THIS FOR ONE YEAR ANDTHEN DISCUSS WITH YOUR FOLDER INSPECTOR WHETHER TO STOP. Amiodarone 400mg twice [...] follow up: Your primary care provider and logging rafter laborer will manage your blood thinner (apixaban). You do not need lab monitoring of this medication. Diet: Please consume a healthy diet low in cholesterol Follow up Appointments: 12/10/2019 at 3:10PM with PCP Angel Luis Lott Future Appointments Date Time Provider Department Center 12/23/2019 1:30 PM Alfreda Salas APRN [facility] [id number] [facility] 12/26/2019 9:40 AM Merlin Sanchez MD [facility] CARD 4A [facility] 12/30/2019 3:40 PM Gretchen Yoon MD [facility] CARD 4A [facility] Future Appointments and Orders Future Appointments and Orders Future Appointments Provider Department Dept Phone 12/23/2019 1:30 PM Alfreda Salas APRN Neurosurgery at [facility] Arrive at: Home [phone] Please do not come in for this visit. Your provider will call you at the number you provided. 12/26/2019 9:40 AM Merlin Sanchez MD Cardiology at [facility] Arrive at: Home [phone] Please do not come in for this visit. Your provider will call you at the number you provided. 12/30/2019 3:40 PM Gretchen Yoon MD Cardiology at [facility] Arrive at: Home [phone] Please do not come in for this visit. Your provider will call you at the number you provided. Future Orders Complete By Expires Referral to Cardiac Rehab [[id number] Custom] As directed Process Instructions: If no progress note charted, please enter Clinical details in comments. Scheduling Instructions: Questions: My question or request is: STEMI. Cardiac rehab at [facility] Referral to [facility] [REF43 Custom] As directed Process Instructions: If no progress note charted, please enter Clinical details in comments. Scheduling Instructions: Questions: My question or request is: patient with inferior stemi with history of statin allergy (rash) - please evaluate for psck9 inhibitor. Referral to Home Health - at DISCHARGE [[id number] CPT(R)] As directed Process Instructions: Scheduling Instructions: Comments: DOCUMENTATION FOR VNA SERVICES PATIENT'S LOCATION: [address] [address] (home) Ripsaw Operator's Name: Self In discussion with the attending physician, it is certified that this patient is under his/her care and that MD, or an MOTION PICTURE SET GRIP, BELT BRANDER, or PA who is working directly with him/her, had a bjpi-lx-ghog encounter that meets the physician vlyk-bt-yxtg encounter requirements with this patient on 12/07/2019. [...] for managing ADLs. HOME HEALTH CARE AGENCY: [facility], PHONE: [phone] FAX: [phone] Start of care: 24-48 hours after hospital [...] MD [address] / [place] [address] All A agencies which cover the area of patient's residence have been reviewed, either verbally or in writing, and patient/family have chosen the home health care agency noted. Questions: Agency name and contact information: [facility] Patient location post discharge: Home What services are requested: Registered Nurse Physical Therapy Occupational Therapy Start date: Responsible MD post discharge contact info: PCP Your PCP: France Lam MD [phone] For questions regarding this document or issues relating to this hospitalization on the Cardiology Service, please contact your inpatient physician through the [facility] Rubber Goods Tester . Issues after hours and on weekends will be handled by the Track Oiler on-call. Patient Instructions: Neurology Your Diagnosis: Left [...] follow-up appointment in the neurology clinic at [facility]. See below for the appointment time. If you do not have an appointment, you will be called with a time/date for this appointment. ??? Primary Care Provider: Please follow up with your Primary Care Provider within one to 2 weeks ofdischarge. AttachmentsThe following attachments cannot be sent through Care Everywhere. Atrial Fibrillation (Lithuanian)Cardiac Rehabilitation (Lithuanian)Heart Failure (Lithuanian)Heart Failure: Limiting Sodium (Lithuanian)Hemorrhagic Stroke: General Info (Lithuanian)Smoking: Stopping (Lithuanian)Stroke Rehabilitation: General Info (Lithuanian)Pulmonary Embolism (Lithuanian)documented in this encounter Medications at Time of [...] consulted in the interim. Vikash Rodriguez Pager: [phone] Paris Dodd MD - 12/08/2019 8:57 AM [...] complications include novel onset, paroxysmal atrial fibrillation [GTX7UR4YVZX: 5] & L-sided diplopia with potential hemineglect [...] consulted in the interim. Vikash Rodriguez Pager: [phone] Paris Dodd MD - 12/07/2019 9:55 AM [...] complications include novel onset, paroxysmal atrial fibrillation [YHK0QH4FNOZ: 5] & L-sided diplopia with potential hemineglect [...] complications include novel onset, paroxysmal atrial fibrillation [VFM7RM8DWHJ: 5] & L-sided diplopia with potential hemineglect [...] complications include novel onset, paroxysmal atrial fibrillation [RFL9ZE5ZNJW: 5] & L-sided diplopia with potential hemineglect [...] today; additional complications include paroxysmal atrial fibrillation [QJE6PD0YADC: 4] c/b possible cardioembolic stroke, ICH from [...] length from neck/greatest diameter to back wall: [place] 91, CAU 13: 19 mm CORTES [...] a non-culprit artery. S/P DESx3 in the xbyakgce-sm-qkioyh RCA. Aspiration thrombectomy performed, and integrellin bolus [...] complications include novel onset, paroxysmal atrial fibrillation [FPZ4OI0WDHP: 5] & L-sided diplopia with potential hemineglect [...] R occipital cardioembolic stroke #Paroxysmal Afib with RE6WDKDK9D score of 5 #New segmental bilateral PEs [...] Glasgow MD PGY1, Internal Medicine Cardiology S2, #8858 Associated attestation - Paris Dodd MD - 12/05/2019 2:59 PM EDT I was the assigned attending logging rafter laborer for this clinical encounter. For the purposes [...] 12/04/2019 10:36 AM EDT Office of Care Management(OCM)/Auto Clutch Specialist(CM)/Discharge Planning Service: Cardiology S2 team CM Bernie Alexander,RN,BSN,MA,ACM pgr [phone] Reviewed record and in Cardiology Rounds with MD team,CMs, ship carpenter, GATE SHEAR OPERATOR. Pt is anticipated ready for d/c [...] AD to his PCP and to any [facility] appt for each to have on file. [...] complications include novel onset, paroxysmal atrial fibrillation [TZE2II1WXSO: 4] & L-sided diplopia with potential hemineglect [...] a non-culprit artery. S/P DESx3 in the adikdzjz-fu-tljpbu RCA. Aspiration thrombectomy performed, and integrellin bolus [...] complications include novel onset, paroxysmal atrial fibrillation [OQM5QM7QSWP: 5] & L-sided diplopia with potential hemineglect [...] R occipital cardioembolic stroke #Paroxysmal Afib with SR0VALQL7S score of 5 - No anticoagulation for [...] Glasgow MD PGY1, Internal Medicine Cardiology S2, #8776 I have seen the patient and reviewed [...] in my clinic. Gretchen Yoon MD Pager [phone] Derian Pascual RN - 12/03/2019 9:29 AM [...] Discharge: None Electronically signed: Derian Pascual RN, Auto Clutch Specialist Pgr: [phone] 12/03/2019 9:29 AM Gretchen [...] complications include novel onset, paroxysmal atrial fibrillation [GPF7FM9VEID: 4] & L-sided diplopia with potential hemineglect [...] a non-culprit artery. S/P DESx3 in the eoijvgkm-vk-gnubah RCA. Aspiration thrombectomy performed, and integrellin bolus [...] complications include novel onset, paroxysmal atrial fibrillation [YCA6ZW3BMFN: 5] & L-sided diplopia with potential hemineglect [...] MRI showed possible cardioembolic stroke #Afib with PA0LJKGH6Z score of 5 - Stroke Team Consulted; [...] Anticoagulation/Arrhythmia # Novel Onset, Paroxsymal Atrial Fibrillation [HHE4QK0EGBR: 5] - Hold off anticoagulation for at [...] w straight cath prn # Nutrition - [facility] Diet, 2g Na. -- Hematology/Oncology-- # Mild [...] Glasgow MD PGY1, Internal Medicine Cardiology S2, #9254 I have seen the patient and reviewed the resident's above history and I agree with the details as written. The assessment and plan were formulated in discussion with me and I agree with them as documented. Gretchen Yoon MD Pager [phone] Raul Hein RN - 12/03/2019 5:55 AM [...] Negative mcL Appearance UA Clear Clear Spec [place] UA 1.026 1.006 - 1.030 Color UA [...] PGY3 Neurology Resident 12/01/2019 Vascular Neurology Pager [phone] Neurology Attending Attestation I evaluated the patient [...] documented. Deepthi Roman MD Vascular Neurology Standard [facility] Swallow Screen: This screen is to be [...] diet as medical provider deems appropriate. Consider MACHINE MAINTENANCE SUPERVISOR consult for full evaluation and diet recommendations. [...] complications include novel onset, paroxysmal atrial fibrillation [MVB6LA1VOKM: 4] & L-sided diplopia with potential hemineglect [...] a non-culprit artery. S/P DESx3 in the jwuwgykz-vi-hbztpd RCA. Aspiration thrombectomy performed, and integrellin bolus [...] complications include novel onset, paroxysmal atrial fibrillation [FXS5RI4VMJW: 5] & L-sided diplopia with potential hemineglect [...] Anticoagulation/Arrhythmia # Novel Onset, Paroxsymal Atrial Fibrillation [HER6SM3ZTNG: 5] - Hold off anticoagulation - pending [...] tamsulosin d/t low BP. # Nutrition - [facility] Diet -- Hematology/Oncology-- # Mild Thrombocytopenia, unclear [...] Glasgow MD PGY1, Internal Medicine Cardiology S2, #4434 I have seen the patient and reviewed [...] the ICU team. Gretchen Yoon MD Pager [phone] Natalia Claros APRN - 12/02/2019 8:38 AM [...] - We are signing off. Please page [phone] with any questions or concerns. For questions please call NSGY pager [phone] Natalia Claros APRN 12/02/2019 8:38 AM Clinical Documentation Improvement: Active Hospital Problems Diagnosis ??? Acute ST elevation myocardial infarction (STEMI) of inferior wall ??? Intracranial hemorrhage ??? Hyperlipidemia ??? Tobacco abuse ??? Claudication from peripheral vascular disease, left Resolved Hospital Problems No resolved problems to display. Tello Hsu, SIGN OUT CLERK - 12/02/2019 2:06 AM EDT 12/01/192009 Oxygen [...] afternoon. Upon arrival back in [facility] placed on low flow NC at [...] complications include novel onset, paroxysmal atrial fibrillation [QLE7AI4KRXU: 4] & L-sided diplopia with potential hemineglect for which CVA evaluationto be pursued. Active Problems/Subjective: - 11/28: admitted for inferior STEMI, RV failure requiring pressor - got lytics, aspirin and plavix load, heparin gtt, and eptifibatide. 3 MACARIO stents to RCA. [place] cath - low wedge & CVP so [...] a non-culprit artery. S/P DESx3 in the wgkvmfwt-uk-sujeak RCA. Aspiration thrombectomy performed, and integrellin bolus [...] complications include novel onset, paroxysmal atrial fibrillation [[id number]: 4] & L-sided diplopia with potential hemineglect [...] Anticoagulation/Arrhythmia # Novel Onset, Paroxsymal Atrial Fibrillation [[id number]: 4] - Obtain: TTE - Pending CVA [...] tamsulosin d/t low BP. # Nutrition - [facility] Diet -- Hematology/Oncology-- # Mild Thrombocytopenia, unclear [...] MD, PGY1 PGY3, Internal Medicine Cardiology S2, #[id number] I have seen the patient and reviewed [...] down the line. Gretchen Yoon MD Pager [phone] ?? Gretchen Yoon MD Pager [phone] Natalia Claros APRN - 12/01/2019 1:33 AM [...] per primary team For questions please call Circl pager [phone] Natalia Claros APRN 12/01/2019 7:42 AM Clinical Documentation Improvement: Active Hospital Problems Diagnosis ??? Acute ST elevation myocardial infarction (STEMI) of inferior wall ??? Intracranial hemorrhage ??? Hyperlipidemia ??? Tobacco abuse ??? Claudication from peripheral vascular disease, left Resolved Hospital Problems No resolved problems to display. Tello Hsu, SIGN OUT CLERK - 11/30/2019 8:44 PM EDT Respiratory Therapy [...] EDT Narrative:Visited in response to request for Foam Rubber Mixer services. Pt was awake, alert, oriented and in bed. Assessment:Patient coping positively with stresses of illness/hospitalization at this time. Pt says that he is hoping to get better and pt is living with and has children and grandchildren. Pt haspurpose of life and has reason to get getter and to be with family. Outcome: Provided emotional and spiritual support and encouraging presence. Foam Rubber Mixer services accepted.Conversation to build trusting relationship.Provided pastoral [...] complications include novel onset, paroxysmal atrial fibrillation [[id number]: 4] & L-sided diplopia with potential hemineglect for which CVA evaluationto be pursued. Active Problems/Subjective: - Overnight, CVP < 12 for which a total of 1 L IVF provided - Today AM, patient complains of subjectively reported, left-sided hemineglect with floaters and diplopia [see: exam]. - Otherwise, c/o neck pain 2/2 R IJ [place] & L radial A line. Otherwise, denies [...] a non-culprit artery. S/P DESx3 in the njdzcscu-lp-yewdrs RCA. Aspiration thrombectomy performed, and integrellin bolus [...] complications include novel onset, paroxysmal atrial fibrillation [[id number]: 4] & L-sided diplopia with potential hemineglect [...] Anticoagulation/Arrhythmia # Novel Onset, Paroxsymal Atrial Fibrillation [[id number]: 4] - Obtain: TTE to confirm rhythm [...] tamsulosin d/t low BP. # Nutrition - [facility] Diet -- Hematology/Oncology-- # Mild Thrombocytopenia, unclear [...] MD, PGY3 PGY3, Internal Medicine Cardiology S2, #[id number] I have seen the patient and reviewed [...] down the line. Gretchen Yoon MD Pager [phone] Paola Capps RN - 11/30/2019 6:57 AM EDT PT still requiring 4 of levo, several attempts to titrate down (maps in 70;s) But maps would drop toless than 65. Pt very restless in bed Raising and lowering head denies pain . Integrillin stopped [id number] when bottle complete , urine tea colored [...] PCP: France Lam MD PCP phone #: [phone] Industrial Organizational Psychologist: None ID/Chief Complaint: Chest pain History of Present Illness: 74 y.o male with no significant PMH, was in usual state of health until yesterday when he woke up at 4am this morning with severe crushing substernal chest pain 04/10. He took two full strength aspirin and came to [facility] ED. At there was found [...] and Compazine. He was transferred directly to [facility] via [facility] for further management. Patient had an emergent PCI with 3 MACARIO stents placed to his RCA, with mild disease of LCX (report pending) at [facility]. He was found to be persistently hypotensive requiring Levo up to 10mcg/min. He was transferred to [facility] after the cath procedure. Bedside RHC showed CI 2.12, PAWP 11, PAP 38/15 indicating hypovolemic state. He received 1L bolus of NS with improvement of his blood pressure to 124/61. History of PAD, HLD - had side reactions to statins - so taking niacin and red rye grain. Chronic active smoker with more than 65 pack years. Family history of MA in father and two uncles. He's takingbaby [...] ??? Penicillins Pt doesn't remember reaction ??? Dvrnjcb-Chb-Mtc Reductase Inhibitors Stiff neck, upset stomach, back pain Family History: Mother: Father: MA 2 Uncles with MIs Social History: Tobacco: Current active smoker 1 ppd. 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 Vitals: Last value Range last [...] in the last 7068 hours. Invalid input(s): [id number] Heme: No results for input(s): LDH, HAPTOGLOBIN, [...] OSH prior to transfer and PCI at [facility]. Massive inferior STEMI with troponin level 20, currently in CVCC due to pressor requirement. BedsideRHC demonstrated evidence of elevated right sided heart failure, but his wedge was wnl. He received 1L bolus with improvement of his blood pressure and reduction of his pressor requirement. PLAN: Admit to Cardiology, S2 Team Pager # [phone] #Inferior STEMI, LEYLA 149 - Resolving EKG [...] inferior STEMI s/p lytic therapy. Transferred to [facility] and underwent successful PCI of the RCA with MACARIO x3. Gretchen Yoon MD Pager [phone] documented in this encounter Procedure Notes Juventino [...] to the planned procedure. Hand Hygiene: The crop pest control specialist did perform hand hygiene prior to [...] line-associated infection. Location of Procedure: [facility] Risks and Benefits: The risks and [...] to the planned procedure. Hand Hygiene: The crop pest control specialist did perform hand hygiene prior to [...] side:right An Introducer (PSI Kit) was used. [place]. Insertion Side: right. Insertion Site: internal jugular. Catheter Details: Number of Lumens: 1 Catheter Type: heparin-coated The line was placed over a guidewire. Confirmation of Venous Placement: Venous placement was confirmed by transducing the pressure. Introducer Insertion Attempts: 1 Comments: Floating the [place]-Mo Catheter Attempts: 1 Comments: Sterile Dressing: Biopatch [...] better pt back in SR. Please page [phone] for any more cares or concerns Plan [...] complications include novel onset, paroxysmal atrial fibrillation [[id number]: 5]& L-sided diplopia with potential hemineglect for [...] Total Evaluation Minutes, Occupational Therapy: 10 Pager: [phone] FRANCINE Nuñez Occupational Therapy Rehabilitation Department Plan [...] complications include novel onset, paroxysmal atrial fibrillation [[id number]: 5] & L-sided diplopia with potential hemineglect [...] hand rails). Baseline Mobility: Independent. Drives. Shares solar lab technician with his , however her mobility is [...] plan as stated. Time IN / OUT: 6952-0329 Total Evaluation Minutes, Physical Therapy: 15(gtx1) Barbara Baldwin, PT Pager: [phone] Physical Therapy Inpatient Rehabilitation Department Plan of [...] he receives all he needs through the [facility]. Consult refused. Romain Tran, MSN, RN-, [place] Tobacco Scale Installer [facility] Pager #[phone] Plan of Care - Romain Oglesby OT [...] complications include novel onset, paroxysmal atrial fibrillation [FVX2SS0DGTD: 5] & L-sided diplopia with potential hemineglect [...] and measurable assessment of functional outcome. Pager: [phone] ROMAIN OGLESBY OT 12/03/2019 Occupational Therapy Rehabilitation [...] in an outpatient cardiac rehabilitation program at [facility] was discussed. Patient agrees to a referral to this program. His has been a cardiac rehab patient at [facility] and he is familiar [...] complications include novel onset, paroxysmal atrial fibrillation [[id number]: 5] & L-sided diplopia with potential hemineglect [...] hand rails). Baseline Mobility: Independent. Drives. Shares solar lab technician with his , however her mobility is [...] in this evaluation. Time IN / OUT: 3555-0805 Total Evaluation Minutes, Physical Therapy: 25(eval, gtx1) Barbara Baldwin, PT Pager: [phone] Physical Therapy Inpatient Rehabilitation Department Consult Note [...] (L) 12/01/2019 Nutritional Intake Current bed: [facility] A.I[facility]R. Assessment: Patient is with an [...] Please contact JOHANNA NOBLES RN on pager [phone] or the wound care team at [phone] or pager [phone] skin and wound care concerns or questions. [...] Salinas would be surrogate decision maker per [place] surrogate decision making law. Any patient receiving carspousee at [facility] must abide by [place] law. The hierarchy for surrogate decisionmaking is: [...] Insurance: N/A Prescription Coverage: Yes Preferred Pharmacy: [place], [place] Other: No Primary Care Provider: France Lam MD [phone] Patient/Caregiver Goals of Treatment: Return home Potential Needs for Transition of Care: Rehab/SNF: Based on discussions with the multi-disciplinary healthcare team, the patient would benefit from SNF level of care at discharge. ?? I have met with the patient to discuss discharge planning needs. I have provided the [facility], Officeof Care Management letter from the Sheet Metal Assembler pertaining to rehab referrals. I have also provided a letter describing our affiliations within the [facility] and educated them about their right [...] requested referrals to: ?? [facility]. [facility] [address] [place] [address] ?? [address]. [address] , [place] [address] Note routed to Osteopathic Medicine Teacher who will communicate referrals to facilities and provide any required information. Home Health: If therapies recommend home w/ VNA, the patient has been provided a list of Home Health Agencies/DME vendors which serve their preferred geographic area. A letter describing our affiliations was reviewed with them and they were educated about their right to choose where referrals are placed. Patient requests referral to [facility] PHONE: [phone] FAX: [phone] Referral routed to the Osteopathic Medicine Teacher for matching with agency/vendor and to provide [...] Insured w/ Medicare. Gets medications filled at [facility] in [place], [place]. Son to transport at discharge Plan: Discharge dispo depending on patient's physical recovery; SNF vs home w/ VNA. A member of the Care Management team will continue to monitor progress, follow for continuity of care and assist with transition of care planning. Derian Pascual RN Pager: [phone] Plan of Care - Estefani Encarnacion RN [...] ??? Penicillins Pt doesn't remember reaction ??? Ocphygb-Fht-Hec Reductase Inhibitors Stiff neck, upset stomach, back [...] noncontrast head CT and CT of the new [place] at 1600 hrs. We will [...] vision concerning for stroke. Patient presented to [facility] in transfer for a STEMI after presenting [...] ??? Penicillins Pt doesn't remember reaction ??? Zmgotpn-Xpj-Gbm Reductase Inhibitors Stiff neck, upset stomach, back [...] L Elbow flexion 5/5 R, 5/5 L Cardiology Teacher LE: 5/5 R, 5/5 L Hip flexion [...] PGY3 Neurology Resident 11/30/2019 Vascular Neurology Pager [phone] Standard [facility] Swallow Screen: This screen is to be [...] diet as medical provider deems appropriate. Consider MACHINE MAINTENANCE SUPERVISOR consult for full evaluation and diet recommendations. [...] Afib admitted s/p thrombolysis and Cath-Stent to [facility] who developed R sided [...] hours. Evan Mejia MD Department of Neurology [facility] Brief Op Note - Gretchen Yoon MD - 11/29/2019 8:38 PM EDT Brief Operative Note Patient Name: Angel Luis Salinas : [id number] MR#: [id number] Case Date: 11/29/2019 Surgeon: Surgeon(s) and Role: * Gretchen Yoon MD - Primary * Aidan Ward MD - Fellow Preoperative diagnosis: Inferior STEMI Postoperative diagnosis: Inferior STEMI Procedure(s) (LRB): CARDIAC CATHETERIZATION (N/A) Findings: Discrete 90% stenosis in the prox-to-mid RCA. Severe diffuse disease in the distal vessel. Discrete LCX stenosis in a non-culprit artery. S/P DESx3 in the wcxgwgos-zu-ctamel RCA. Aspiration thrombectomy performed, and integrellin bolus [...] are i n the results section. CT [place] OF [place] W STAT 11/30/2019 4:36 Res [...] athologist Signature Potassium 3.9 3.5 - 5.0 [facility] mmol/L [facility] LABORATORY Comment: Please note: [...] Organization Address City/State/ZIP [place] [address] (ABNORMAL) Hemogram (12/08/2019 12:39 PM EDT) Analysis Performed At Patho logist Time Signature WBC 9.9 (H) 4.0 - 9.5 [facility] x[facility](3[facility] LABORATORY RBC 4.51 (L) 4.58 - MELINA OLIVIA 5.54 [facility] x10(6)/[facility] LABORATORY Hemoglobin 13.0 (L) 13.7 - [place] OLIVIA 16.5 gm/dL [facility] LABORATORY Hematocrit 40.5 40.5 - [place] OLIVIA 48.5 % [facility] LABORATORY MCV 89.8 82.9 - [facility] OLIVIA 93.1 [facility] LABORATORY MCH 28.8 27.5 - [place] OLIVIA 32.1 pg [facility] LABORATORY MCHC 32.1 32.0 - [place] OLIVIA 35.7 gm/dL [facility] LABORATORY Platelets 214 145 - 357 [facility] x10(3)/[facility] LABORATORY RDWSD 49.2 (H) 36.0 - MEL[place] OLIVIA 45.0 [facility] LABORATORY RDWCV 15.1 (H) 11.4 - [facility]IV[facility] 13.8 % [facility] LABORATORY MPV 12.1 7.6 - 12.9 [facility] OLIVIA [facility] LABORATORY nRBC % Auto 0.0 % [facility] LABORATORY nRBC Abs Auto 0.000 0.000 - [facility] 0.000 [facility] x10(3)/[facility] LABORATORY Specimen Anatomical Collection Method Collection Time Receive d Time (Source) Location / / Volume Laterality Blood specimen 12/08/2019 12:39 0 (specimen) PM EDT 12:47 PM EDT Resulting Agency Comment Spec In Lab Gretchen Yoon MD HEMATOLOGY ORDERABLES Performing Organization Address City/State/ZIP Code Phon e Number [address] Hepatic Function Panel (12/08/2019 6:28 AM EDT) athologist Signature Total Protein 6.6 6.1 - 8.0 [place] OLIVIA gm/dL [facility] LABORATORY Albumin 3.2 3.2 - 5.2 [place] OL[place] gm/dL [facility] LABORATORY AST 18 0 - 39 [place] OLIVIA unit/L [facility] LABORATORY ALT 13 0 - 55 [facility] OLIVIA unit/L [facility] LABORATORY Alk Phos 64 40 - 130 [facility] OLIVIA unit/L [facility] LABORATORY Total 0.4 0.2 - 1.3 [place] OLIVIA Bilirubin mg/dL [facility] LABORATORY Bili, Direct 0.1 0.0 - 0.3 [facility] OLIVIA mg/dL [facility] LABORATORY Specimen Anatomical Collection Method Collection Time Receive d Time (Source) Location / / Volume Laterality Blood specimen Venous Draw / 12/08/2019 6:28 AM 2019 6:36 (specimen) Unknown EDT AM EDT Resulting Agency Comment Spec In Lab Riki Stevens MD CHEMISTRY ORDERABLES Performing Organization Address City/[facility]/ZIP Code Phon e Number [address] (ABNORMAL) TSH (12/08/2019 6:28 AM EDT) athologist Signature TSH 5.27 (H) 0.27 - 4.20 [employer] mcIU/mL [facility] LABORATORY Specimen Anatomical Collection Method Collection Time Receive d Time (Source) Location / / Volume Laterality Blood specimen Venous Draw / 12/08/2019 6:28 AM 2019 6:36 (specimen) Unknown EDT AM EDT Resulting Agency Comment Spec In Lab Darrell Glasgow MD CHEMISTRY ORDERABLES Performing Organization Address City/[facility]/ZIP Code Phon e Number [address] Potassium (12/08/2019 6:28 AM EDT) P athologist Signature Potassium 4.2 3.5 - 5.0 [facility] mmol/L [facility] LABORATORY Comment: Please note: [...] Organization Address City/State/[place] [address] (ABNORMAL) Differential, Automated (12/08/2019 12:43 AM EDT) Patholo gist Method Time Signature Neutrophils % 60.7 % [facility] LABORATORY Neutr Abs (ANC) 6.81 (H) 1.70 - [facility] 6.10 [facility] x10(3)/[facility] LABORATORY Lymphocytes % 23.4 % [facility] LABORATORY Lymphocytes Abs 2.6 0.9 - 3.2 [facility] x10(3)/[facility] LABORATORY Monocytes % 10.0 % [facility] LABORATORY Monocyte Abs 1.1 (H) 0.3 - 0.9 [facility] x10(3)/[facility] LABORATORY Eosinophils % 3.7 % [facility] LABORATORY Eosinophils Abs 0.4 0.0 - 0.4 [facility] x10(3)/[facility] LABORATORY Basophils % 1.2 % [facility] LABORATORY Basophils Abs 0.1 0.0 - 0.1 [facility] x10(3)/[facility] LABORATORY Immature [...] Abs 0.11 (H) 0.00 - 0.04 x10(3)/[facility] LABORATORY Specimen Anatomical Collection Method Collection Time Receive d Time (Source) Location / / Volume Laterality Blood specimen 12/08/2019 12:43 0 (specimen) AM EDT 12:52 AM EDT Resulting Agency Comment Spec In Lab Riki Stevens MD HEMATOLOGY ORDERABLES Performing Organization Address City/State/ZIP [place] [address] (ABNORMAL) Hemogram (12/08/2019 12:43 AM EDT) Analysis Performed At Patho logist Time Signature WBC 11.2 (H) 4.0 - 9.5 [facility] x10(3)/[facility] LABORATORY RBC 4.46 (L) 4.58 - [facility] OLIVIA 5.54 [facility] x10(6)/[facility] LABORATORY Hemoglobin 13.1 (L) 13.7 - [facility] 16.5 gm/dL [facility] LABORATORY Hematocrit 40.5 40.5 - [facility] OLIVIA 48.5 % [facility] LABORATORY MCV 90.8 82.9 - [facility] 93.1 [facility] LABORATORY MCH 29.4 27.5 - [facility] OLIVIA 32.1 pg [facility] LABORATORY MCHC 32.3 32.0 - [facility] OLIVIA 35.7 gm/dL [facility] LABORATORY Platelets 215 145 - 357 [facility] x10(3)/[facility] LABORATORY RDWSD 49.8 (H) 36.0 - [facility] OLIVIA 45.0 [facility] LABORATORY RDWCV 15.2 (H) 11.4 - [facility] OLIVIA 13.8 % [facility] LABORATORY MPV 12.3 7.6 - 12.9 [facility] LABORATORY nRBC % Auto 0.0 % [facility] LABORATORY nRBC Abs Auto 0.000 0.000 - [facility] Farman 0.000 [facility] x10(3)/[facility] LABORATORY Specimen Anatomical Collection Method Collection Time Receive d Time (Source) Location / / Volume Laterality Blood specimen 12/08/2019 12:43 0 (specimen) AM EDT 12:52 AM EDT Resulting Agency Comment Spec In Lab Riki Stevens MD HEMATOLOGY ORDERABLES Performing Organization Address City/State/ZIP Code Phon e Number [address] Magnesium (12/08/2019 12:43 AM EDT) athologist Signature Magnesium 1.01 0.69 - 1.07 [facility] mmol/L [facility] LABORATORY Specimen Anatomical Collection Method Collection Time Receive d Time (Source) Location / / Volume Laterality Blood specimen 12/08/2019 12:43 0 (specimen) AM EDT 12:52 AM EDT Resulting Agency Comment Spec In Lab Gretchen Yoon MD CHEMISTRY ORDERABLES Performing Organization Address City/State/[place] [address] (ABNORMAL) BMP w/fasting Glucose (12/08/2019 12:43 AM EDT) P athologist Signature Glucose 106 (H) 65 - 99 [facility] Fasting mg/dL [facility] LABORATORY Comment: ?Fasting* Glucose Interpretive C [...] of Diabetes Mellitus, Position Statement from the [place] [employer]. ??Diabete s Care, Volume 33, Supplement 1, Jul 2009 BUN 14 10 - 20 mg/dL [facility] LABORATORY Creatinine 1.16 0.80 - 1.50 mg/dL [facility] LABORATORY Sodium 134 (L) 135 - [...] Gap 16 (H) 5 - 15 mmol/L [facility] LABORATORY Calcium 8.9 8.5 - [...] of body mass or the acutely ill. [email or web address] eGFR 72 >=60 mL/min/1.73 m?? [facility] LABORATORY Comment: The eGFR was calculated using the CKD-EP I equation. As with all creatinine based estimates of kidney function, eGFR values calculated with the CKD-EPI equation are not accurate in patients wi th acute kidney failure, extremes of body mass or the acutely ill. [email or web address] Specimen Anatomical Collection Method Collection Time Receive d Time (Source) Location / / Volume Laterality Blood specimen 12/08/2019 12:43 0 (specimen) AM EDT 12:52 AM EDT Resulting Agency Comment Spec In Lab Gretchen Yoon MD CHEMISTRY ORDERABLES Performing Organization Address City/State/Z[place] [address] Heparin (unfractionated) Level (12/08/2019 12:43 AM EDT) athologist Signature Heparin UFH 0.60 IU/mL [facility] Comment: Guidelines for therapeutic [...] Organization Address City/State/Z[place] [address] Potassium (12/07/2019 8:39 PM EDT) athologist Signature Potassium 4.1 3.5 - 5.0 [facility] mmol/L [facility] LABORATORY Comment: Please note: [...] Lagos MD CHEMISTRY ORDERABLES Performing Organization Address City/[facility]/[place] [address] Potassium (12/07/2019 4:02 PM EDT) P athologist Signature Potassium 4.0 3.5 - 5.0 M[place] OLIVIA mmol/L [facility] LABORATORY Comment: Please note: [...] Yoon MD CHEMISTRY ORDERABLES Performing Organization Address City/[facility]/[place] [address] (ABNORMAL) Hemogram (12/07/2019 4:02 PM EDT) Analysis Performed At Patho logist Time Signature WBC 17.4 (H) 4.0 - 9.5 MELINA OLIVIA x10(3)/[facility] LABORATORY RBC 4.58 4.58 - M[place] OLIVIA 5.54 [facility] x10(6)/[facility] LABORATORY Hemoglobin 13.5 (L) 13.7 - MELINA OLIVIA 16.5 gm/dL [facility] LABORATORY Hematocrit 40.8 40.5 - M[place] OLIVIA 48.5 % [facility] LABORATORY MCV 89.1 82.9 - MELINA OLIVIA 93.1 [facility] LABORATORY MCH 29.5 27.5 - M[place]INA OLIVIA 32.1 pg [facility] LABORATORY MCHC 33.1 32.0 - MELINA OLIVIA 35.7 gm/dL [facility] LABORATORY Platelets 238 145 - 357 MELINA OLIVIA x10(3)/[facility] LABORATORY RDWSD 48.8 (H) 36.0 - MELINA OLIVIA 45.0 [facility] LABORATORY RDWCV 15.0 (H) 11.4 - [facility] 13.8 % [facility] LABORATORY MPV 12.2 7.6 - 12.9 [facility] LABORATORY nRBC % Auto 0.0 % [facility] LABORATORY nRBC Abs Auto 0.000 0.000 - MELINA MARSHOLIVIA 0.000 [facility] x10(3)/[facility] LABORATORY Specimen Anatomical Collection Method Collection Time Receive d Time (Source) Location / / Volume Laterality Blood specimen 12/07/2019 4:02 PM 020 4:08 (specimen) EDT PM EDT Resulting Agency Comment Spec In Lab Gretchen Yoon MD HEMATOLOGY ORDERABLES Performing Organization Address City/[facility] [place] [address] EKG 12 Lead (12/07/2019 [...] (Bezet) Calculated P -12 degrees MUSE SYSTEM [place] Calculated R 10 degrees MUSE SYSTEM [place] Calculated T -138 degrees MUSE SYSTEM [place] INTERPRETATION Supraventricular tachycardia MUSE SYSTEM Low voltage [...] athologist Signature Potassium 4.2 3.5 - 5.0 [facility] mmol/L [facility] LABORATORY Comment: Please note: [...] Lagos MD CHEMISTRY ORDERABLES Performing Organization Address City/[facility] [address] Heparin (unfractionated) Level (12/07/2019 11:43 AM EDT) athologist Signature Heparin UFH 0.59 IU/mL [facility] LABORATORY Comment: Guidelines for therapeutic unfractionate d [...] Lagos MD HEMATOLOGY ORDERABLES Performing Organization Address [facility]/[place] [address] Heparin (unfractionated) Level (12/07/2019 5:20 AM EDT) P athologist Signature Heparin UFH 0.53 IU/mL [facility] LABORATORY Comment: Guidelines for therapeutic unfractionate d [...] Organization Address City/State/[place] [address] (ABNORMAL) Differential, Automated (12/07/2019 5:20 AM EDT) Patholo gist Method Time Signature Neutrophils % 62.4 % [facility] LABORATORY Neutr Abs (ANC) 5.46 1.70 - [facility] 6.10 [facility] x10(3)/[facility] LABORATORY Lymphocytes % 20.3 % [facility] LABORATORY Lymphocytes Abs 1.8 0.9 - 3.2 [facility] x10(3)/[facility] LABORATORY Monocytes % 11.0 % [facility]ORATORY Monocyte Abs 1.0 (H) 0.3 - 0.9 [facility] x10(3)/[facility] LABORATORY Eosinophils % 4.5 % [facility]ATORY Eosinophils Abs 0.4 0.0 - 0.4 [facility] x10(3)/[facility] LABORATORY Basophils % 0.9 % [facility] LABORATORY Basophils Abs 0.1 0.0 - 0.1 [facility] x10(3)/[facility] LABORATORY Immature Gran % 0.90 % ST. [...] Abs 0.08 (H) 0.00 - 0.04 x10(3)/[facility] LABORATORY Specimen Anatomical Collection Method Collection Time Receive d Time (Source) Location / / Volume Laterality Blood specimen 12/07/2019 5:20 AM 020 5:37 (specimen) EDT AM EDT Resulting Agency Comment Spec In Lab Riki Stevens MD HEMATOLOGY ORDERABLES Performing Organization Address City/State/ZIP Code Phon e Number [place] [id number]OSP[address]ORY [address] (ABNORMAL) Hemogram (12/07/2019 5:20 AM EDT) Analysis Performed At Patho logist Time Signature WBC 8.7 4.0 - 9.5 [facility] x10(3)/[facility] LABORATORY RBC 4.20 (L) 4.58 - [facility] 5.54 [facility] x10(6)/[facility] LABORATORY Hemoglobin 12.3 (L) 13.7 - [facility] 16.5 gm/dL [facility] LABORATORY Hematocrit 37.4 (L) 40.5 - [facility] 48.5 % [facility]ATORY MCV 89.0 82.9 - [facility] 93.1 fL [facility] LABORATORY MCH 29.3 27.5 - [facility] 32.1 pg [facility] LABORATORY MCHC 32.9 32.0 - MELINA MONAE 35.7 gm/dL [facility] LABORATORY Platelets 181 145 - 357 MELINA MONAE x10(3)/[facility] LABORATORY RDWSD 47.7 (H) 36.0 - MELINA MONAE 45.0 [facility] LABORATORY RDWCV 14.8 (H) 11.4 - [facility] OLIVIA 13.8 % [facility] LABORATORY MPV 12.3 7.6 - 12.9 MELINA OLIVIA [facility] LABORATORY nRBC % Auto 0.0 % [facility] LABORATORY nRBC Abs Auto 0.000 0.000 - MELINA MONAE 0.000 [facility] x10(3)/[facility] LABORATORY Specimen Anatomical Collection Method Collection Time Receive d Time (Source) Location / / Volume Laterality Blood specimen 12/07/2019 5:20 AM 020 5:37 (specimen) EDT AM EDT Resulting Agency Comment Spec In Lab Riki Stevens MD HEMATOLOGY ORDERABLES Performing Organization Address City/State/ZIP Code Phon e Number [address] Magnesium (12/07/2019 5:20 AM EDT) P athologist Signature Magnesium 0.89 0.69 - 1.07 [facility] mmol/L [facility] LABORATORY Specimen Anatomical Collection Method Collection Time Receive d Time (Source) Location / / Volume Laterality Blood specimen 12/07/2019 5:20 AM 020 5:37 (specimen) EDT AM EDT Resulting Agency Comment Spec In Lab Gretchen Yoon MD CHEMISTRY ORDERABLES Performing Organization Address City/State/ZIP Code Phon e Number [address] (ABNORMAL) BMP w/fasting Glucose (12/07/2019 5:20 AM EDT) P athologist Signature Glucose 100 (H) 65 - 99 [facility]/dL [facility] LABORATORY Comment: ?Fasting* Glucose Interpretive C [...] of Diabetes Mellitus, Position Statement from the [place] [employer]. ??Diabete s Care, Volume 33, Supplement 1, Jul 2009 BUN 14 10 - 20 mg/dL [facility] LABORATORY Creatinine 0.83 0.80 - 1.50 mg/dL [facility] LABORATORY Sodium 135 135 - 145 [...] Anion Gap 14 5 - 15 mmol/L [facility] LABORATORY Calcium 8.8 8.5 - [...] of body mass or the acutely ill. [email or web address] eGFR 101 >=60 mL/min/1.73 m?? [facility] LABORATORY Comment: The eGFR was calculated using the CKD-EP I equation. As with all creatinine based estimates of kidney function, eGFR values calculated with the CKD-EPI equation are not accurate in patients wi th acute kidney failure, extremes of body mass or the acutely ill. [email or web address] Specimen Anatomical Collection Method Collection Time Receive d Time (Source) Location / / Volume Laterality Blood specimen 12/07/2019 5:20 AM 020 5:37 (specimen) EDT AM EDT Resulting Agency Comment Spec In Lab Gretchen Yoon MD CHEMISTRY ORDERABLES Performing Organization Address City/[facility] [address] Heparin (unfractionated) Level (12/06/2019 10:14 PM EDT) athologist Signature Heparin UFH 0.29 IU/mL [facility] LABORATORY Comment: Guidelines for therapeutic unfractionate d [...] Lagos MD HEMATOLOGY ORDERABLES Performing Organization Address City/[facility]/[place] [address] Head wo Contrast [...] questions regarding this report, please contact [facility] number below. ? Electronically signed by: Merari Collins [facility] ([phone]), at 12/06/2019 10:06 PM Narrative 12/06/2019 10:06 [...] number below. Electronically signed by: Merari Collins [facility] ([phone]), at 12/06/2019 10:06 PM Paris Lagos MD IMG CT ORDERABLES (ABNORMAL) Hemogram (12/06/2019 4:20 PM EDT) Analysis Performed At Patho logist Time Signature WBC 10.4 (H) 4.0 - 9.5 [facility] x[facility](3[facility] LABORATORY RBC 4.32 (L) 4.58 - [facility] OLIVIA 5.54 [facility] x10(6)/[facility] LABORATORY Hemoglobin 12.5 (L) 13.7 - [facility] gm/dL [facility]ORY Hematocrit 38.4 (L) 40.5 - [facility] 48.5 % [facility] LABORATORY MCV 88.9 82.9 - [facility] 93.1 [facility] LABORATORY MCH 28.9 27.5 - MELINA OLIVIA 32.1 pg [facility] LABORATORY MCHC 32.6 32.0 - [facility] 35.7 gm/dL [facility] LABORATORY Platelets 194 145 - 357 [facility] x10(3)/[facility] LABORATORY RDWSD 46.9 (H) 36.0 - [facility] 45.0 [facility] LABORATORY RDWCV 14.6 (H) 11.4 - [facility] OLIVIA 13.8 % [facility] LABORATORY MPV 11.9 7.6 - 12.9 [facility] OLIVIA [facility] LABORATORY nRBC % Auto 0.0 % [facility] LABORATORY nRBC Abs Auto 0.000 0.000 - [facility] OLIVIA 0.000 [facility] x10(3)/[facility] LABORATORY Specimen Anatomical Collection Method Collection Time Receive d Time (Source) Location / / Volume Laterality Blood specimen 12/06/2019 4:20 PM 020 4:31 (specimen) EDT PM EDT Resulting Agency Comment Spec In Lab Gretchen Yoon MD HEMATOLOGY ORDERABLES Performing Organization Address City/State/ZIP [place] [address] Heparin (unfractionated) Level (12/06/2019 4:20 PM EDT) P athologist Signature Heparin UFH 0.30 IU/mL [facility] LABORATORY Comment: Guidelines for therapeutic unfractionate d [...] Organization Address City/State/ZIP [place] [address] Heparin (unfractionated) Level (12/06/2019 10:02 AM EDT) athologist Signature Heparin UFH <0.04 IU/mL [facility] LABORATORY Comment: Guidelines for therapeutic unfractionate d [...] Address City/State/ZIP Code Phon e Number [address] Magnesium (12/06/2019 3:36 AM EDT) P athologist Signature Magnesium 0.86 0.69 - 1.07 [facility] mmol/L [facility] LABORATORY Specimen Anatomical Collection Method Collection Time Receive d Time (Source) Location / / Volume Laterality Blood specimen 12/06/2019 3:36 AM 020 3:45 (specimen) EDT AM EDT Resulting Agency Comment Spec In Lab Gretchen Yoon MD CHEMISTRY ORDERABLES Performing Organization Address City/State/[place] [address] (ABNORMAL) BMP w/fasting Glucose (12/06/2019 3:36 AM EDT) P athologist Signature Glucose 103 (H) 65 - 99 [facility] Fasting mg/dL [facility] LABORATORY Comment: ?Fasting* Glucose Interpretive C [...] of Diabetes Mellitus, Position Statement from the [place] [employer]. ??Diabete s Care, Volume 33, Supplement 1, Jul 2009 BUN 20 10 - 20 mg/dL [facility] LABORATORY Creatinine 0.88 0.80 - 1.50 mg/dL [facility] LABORATORY Sodium 136 135 - 145 [...] Anion Gap 14 5 - 15 mmol/L [facility] LABOR[facility]ORY Calcium 8.7 8.5 - [...] of body mass or the acutely ill. [email or web address] eGFR 99 >=60 mL/min/1.73 m?? [facility] LAB[facility]ORY Comment: The eGFR was calculated using the CKD-EP I equation. As with all creatinine based estimates of kidney function, eGFR values calculated with the CKD-EPI equation are not accurate in patients wi th acute kidney failure, extremes of body mass or the acutely ill. [email or web address] Specimen Anatomical Collection Method Collection Time Receive d Time (Source) Location / / Volume Laterality Blood specimen 12/06/2019 3:36 AM 020 3:45 (specimen) EDT AM EDT Resulting Agency Comment Spec In Lab Gretchen Yoon MD CHEMISTRY ORDERABLES Performing Organization Address City/State/[place] [address] (ABNORMAL) Hemogram (12/06/2019 3:36 AM EDT) Analysis Performed At Patho logist Time Signature WBC 9.2 4.0 - 9.5 [facility] x[facility](3[facility] LABORATORY RBC 3.99 (L) 4.58 - MELINA OLIVIA 5.54 [facility] x10(6)/[facility] LABORATORY Hemoglobin 11.9 (L) 13.7 - MELINA OLIVIA 16.5 gm/dL [facility] LABORATORY Hematocrit 35.5 (L) 40.5 - [facility] 48.5 % [facility] LABORATORY MCV 89.0 82.9 - [facility] 93.1 [facility] LABORATORY MCH 29.8 27.5 - MELINA OLIVIA 32.1 pg [facility] LABORATORY MCHC 33.5 32.0 - MELINA OLIVIA 35.7 gm/dL [facility] LABORATORY Platelets 164 145 - 357 [facility] x10(3)/[facility] LABORATORY RDWSD 47.6 (H) 36.0 - MELINA OLIVIA 45.0 [facility] LABORATORY RDWCV 14.7 (H) 11.4 - [facility] OLIVIA 13.8 % [facility] LABORATORY MPV 11.9 7.6 - 12.9 [facility] LABORATORY nRBC % Auto 0.0 % [facility] LABORATORY nRBC Abs Auto 0.000 0.000 - MELINA OLIVIA 0.000 [facility] x10(3)/[facility] LABORATORY Specimen Anatomical Collection Method Collection Time Receive d Time (Source) Location / / Volume Laterality Blood specimen 12/06/2019 3:36 AM 020 3:45 (specimen) EDT AM EDT Resulting Agency Comment Spec In Lab Gretchen Yoon MD HEMATOLOGY ORDERABLES Performing Organization Address City/[facility]/[place] [address] (ABNORMAL) Differential, Automated (12/05/2019 10:52 PM EDT) [facility] Method Time Signature Neutrophils % 61.9 % [facility] LABORATORY Neutr Abs (ANC) 6.02 1.70 - [facility] 6.10 [facility] x10(3)/[facility] LABORATORY Lymphocytes % 22.4 % [facility] LABORATORY Lymphocytes Abs 2.2 0.9 - 3.2 [facility] x10(3)/[facility] LABORATORY Monocytes % 10.4 % [facility] LABORATORY Monocyte Abs 1.0 (H) 0.3 - 0.9 [facility] x10(3)/[facility] LABORATORY Eosinophils % 4.1 % [facility] LABOR[facility]ORY Eosinophils Abs 0.4 0.0 - 0.4 [facility] x10(3)/[facility] LABORATORY Basophils % 0.7 % [facility] LABORATORY Basophils Abs 0.1 0.0 - 0.1 [facility] x10(3)/[facility] LABORATORY Immature Gran % 0.50 % ST. [...] Abs 0.05 (H) 0.00 - 0.04 x10(3)/[facility] LABORATORY Specimen Anatomical Collection Method Collection Time Receive d Time (Source) Location / / Volume Laterality Blood specimen 12/05/2019 10:52 0 (specimen) PM EDT 10:59 PM EDT Resulting Agency Comment Spec In Lab Mandi Barrera MD HEMATOLOGY ORDERABLES Performing Organization Address City/State/ZIP [place] [address] (ABNORMAL) Hemogram (12/05/2019 10:52 PM EDT) Analysis Performed At [facility] logist Time Signature WBC 9.7 (H) 4.0 - 9.5 [facility] x10(3)/[facility] LABORATORY RBC 4.07 (L) 4.58 - MELINA WHITTENCOCK 5.54 [facility] x10(6)/[facility] LABORATORY Hemoglobin 11.9 (L) 13.7 - MELINA [place]ITT[place] 16.5 gm/dL [facility] LABORATORY Hematocrit 36.4 (L) 40.5 - MELINA WH[place] 48.5 % [facility] LABORATORY MCV 89.4 82.9 - [facility] OLIVIA 93.1 [facility] LABORATORY MCH 29.2 27.5 - MELINA [place]ITT[place] 32.1 pg [facility] LABORATORY MCHC 32.7 32.0 - MELINA [place] 35.7 gm/dL [facility] LABORATORY Platelets 167 145 - 357 [facility] x10(3)/[facility] LABORATORY RDWSD 47.7 (H) 36.0 - MELINA WHITTENCOCK 45.0 [facility] RDWCV 14.6 (H) 11.4 - [facility] 13.8 % [facility] LABORATORY MPV 12.1 7.6 - 12.9 [facility] LABORATORY nRBC % Auto 0.0 % [facility] LABORATORY nRBC Abs Auto 0.000 0.000 - [facility] OLIVIA 0.000 [facility] x10(3)/[facility] LABORATORY Specimen Anatomical Collection Method Collection Time Receive d Time (Source) Location / / Volume Laterality Blood specimen 12/05/2019 10:52 0 (specimen) PM EDT 10:59 PM EDT Resulting Agency Comment Spec In Lab Mandi Barrera MD HEMATOLOGY ORDERABLES Performing Organization Address City/State/ZIP [place] [address] Heparin (unfractionated) Level (12/05/2019 10:52 PM EDT) P athologist Signature Heparin UFH <0.04 IU/mL [facility] LABORATORY Comment: Guidelines for therapeutic unfractionate d [...] Organization Address City/State/[place] [address] MRI Brain wwo Contrast [...] Time Signature WBC 8.7 4.0 - 9.5 [facility] x10(3)/[facility] LABORATORY RBC 4.17 (L) 4.58 - [facility] 5.54 [facility] x10(6)/[facility] LABORATORY Hemoglobin 12.4 (L) 13.7 - [facility] 16.5 gm/dL [facility] LABORATORY Hematocrit 37.0 (L) 40.5 - [facility] 48.5 % [facility] LABORATORY MCV 88.7 82.9 - [facility] 93.1 [facility] LABORATORY MCH 29.7 27.5 - [facility] 32.1 pg [facility] LABORATORY MCHC 33.5 32.0 - [facility] 35.7 gm/dL [facility] LABORATORY Platelets 173 145 - 357 [facility] x10(3)/[facility] LABORATORY RDWSD 47.3 (H) 36.0 - [facility] 45.0 [facility] LABORATORY RDWCV 14.6 (H) 11.4 - [facility] 13.8 % [facility] LABORATORY MPV 12.1 7.6 - 12.9 [facility] LABORATORY nRBC % Auto 0.0 % [facility] LABORATORY nRBC Abs Auto 0.000 0.000 - [facility] 0.000 [facility] x10(3)/[facility] LABORATORY Specimen Anatomical Collection Method Collection Time Receive d Time (Source) Location / / Volume Laterality Blood specimen 12/05/2019 1:00 PM 020 1:13 (specimen) EDT PM EDT Resulting Agency Comment Spec In Lab Gretchen Yoon MD HEMATOLOGY ORDERABLES Performing Organization Address City/State/ZIP [place] [address] EKG 12 Lead (12/05/2019 10:52 AM EDT) Component Value Ref Range Test Analysis Performed Pathologis t Method Time At Signature Ventricular rate 72 BPM MUSE SYSTEM Atrial Rate 72 BPM MUSE SYSTEM P-R Interval 138 ms MUSE SYSTEM QRS Duration 96 ms MUSE SYSTEM Q-T Interval 396 ms MUSE SYSTEM QTC Calculated 433 ms MUSE SYSTEM (Bezet) Calculated P [place] 65 degrees MUSE SYSTEM Calculated R [place] 13 degrees MUSE SYSTEM Calculated T [place] 0 degrees MUSE SYSTEM INTERPRETATION Sinus rhythm Occasional Premature ventricular complexe s MUSE SYSTEM Possible Inferior infarct (cited on or before 29-NOV-2019) Abnormal ECG When compared with ECG of 04-DEC-2019 10:43, Sinus rhythm has replaced Atrial fibrillation Vent. rate has decreased BY ??86 BPM Confirmed by MD Ceja Daniel ([id number]) on 12/05/2019 3:55:22 PM Specimen Anatomical Collection Method Collection Time Receive d Time (Source) Location / / Volume Laterality 12/05/2019 10:52 12/05/2019 3:55 AM EDT PM EDT Paris Lagos MD ECG ORDERABLES Performing Organization Address City/State/ZIP Code Phon e Number MUSE SYSTEM Duplex Study for DVT, Bilat legs (12/05/2019 7:00 AM EDT) Component Value Ref Test Analysis Performed At [facility] Range Method Time Signature VB Text Department: Vascular Surgery Lab VASCUBASE Report Patient: [id number] (ANGEL LUIS SALINAS) CPT: 35046 ICD10: I26.99 Referring Physician: GRETCHEN YOON ?? [...] athologist Signature Magnesium 0.87 0.69 - 1.07 [facility] mmol/L [facility] LABORATORY Specimen Anatomical Collection Method Collection Time Receive d Time (Source) Location / / Volume Laterality Blood specimen 12/05/2019 4:18 AM 020 4:31 (specimen) EDT AM EDT Resulting Agency Comment Spec In Lab Gretchen Yoon MD CHEMISTRY ORDERABLES Performing Organization Address City/[facility]/[place] [address] (ABNORMAL) BMP w/fasting Glucose (12/05/2019 4:18 AM EDT) P athologist Signature Glucose 104 (H) 65 - 99 [facility] Fasting mg/dL [facility] LABORATORY Comment: ?Fasting* Glucose Interpretive C [...] of Diabetes Mellitus, Position Statement from the [place] [employer]. ??Diabete s Care, Volume 33, Supplement 1, Jul 2009 BUN 21 (H) 10 - 20 mg/dL [facility] LABORATORY Creatinine 1.02 0.80 - 1.50 mg/dL [facility] LABORATORY Sodium 136 135 - 145 [...] Anion Gap 12 5 - 15 mmol/L [facility] LABORATORY Calcium 8.8 8.5 - [...] of body mass or the acutely ill. [email or web address] eGFR 84 >=60 mL/min/1.73 m?? [facility] LAB[facility]ORY Comment: The eGFR was calculated using the CKD-EP I equation. As with all creatinine based estimates of kidney function, eGFR values calculated with the CKD-EPI equation are not accurate in patients wi th acute kidney failure, extremes of body mass or the acutely ill. [email or web address] Specimen Anatomical Collection Method Collection Time Receive d Time (Source) Location / / Volume Laterality Blood specimen 12/05/2019 4:18 AM 020 4:31 (specimen) EDT AM EDT Resulting Agency Comment Spec In Lab Gretchen Yoon MD CHEMISTRY ORDERABLES Performing Organization Address City/State/Z[place] [address] (ABNORMAL) Hemogram (12/05/2019 4:18 AM EDT) Analysis Performed At Patho logist Time Signature WBC 8.6 4.0 - 9.5 [facility] x10(3)/[facility] [facility] LABORATORY RBC 4.28 (L) 4.58 - MEL[place] OLIVIA 5.54 [facility] x10(6)/[facility] LABORATORY Hemoglobin 12.4 (L) 13.7 - [facility] 16.[facility] gm/dL [facility] LABORATORY Hematocrit 37.3 (L) 40.5 - [facility] 48.5 % [facility] LABORATORY MCV 87.1 82.9 - [facility] 93.1 [facility] LABORATORY MCH 29.0 27.5 - [facility] 32[facility] [facility] MCHC 33.2 32.0 - [facility] 35.7 gm/dL [facility] LABORATORY Platelets 163 145 - 357 [facility] x10(3)/[facility] LABORATORY RDWSD 46.4 (H) 36.0 - [facility] 45.0 [facility] LABORATORY RDWCV 14.4 (H) 11.4 - [facility] 13.8 % [facility] LABORATORY MPV 11.7 7.6 - 12.9 [facility] LABORATORY nRBC % Auto 0.0 % [facility] LABORATORY nRBC Abs Auto 0.000 0.000 - [facility] 0.000 [facility] x10(3)/[facility] LABORATORY Specimen Anatomical Collection Method Collection Time Receive d Time (Source) Location / / Volume Laterality Blood specimen 12/05/2019 4:18 AM 020 4:31 (specimen) EDT AM EDT Resulting Agency Comment Spec In Lab Gretchen Yoon MD HEMATOLOGY ORDERABLES Performing Organization Address City/State/[place] [address] Cardiac for Morphology [...] questions regarding this report, please contact [facility] number below. ? Electronically signed by: Roselyn Luciano [facility] ([phone]), at 12/04/2019 6:16 PM Narrative 12/04/2019 6:16 [...] from neck/greatest puja meter to back wall: [place] 91, CAU 13: ??19 mm CORTES [...] from neck/greatest puja meter to back wall: [place] 91, CAU 13: 19 mm CORTES [...] number below. Electronically signed by: Roselyn Luciano, [facility] ([phone]), at 12/04/2019 6:16 PM Gretchen Yoon MD IMG CT ORDERABLES (ABNORMAL) Hemogram (12/04/2019 12:55 PM EDT) Analysis Performed At Patho logist Time Signature WBC 8.9 4.0 - 9.5 [facility] OLIVIA x10(3)/[facility] LABORATORY RBC 4.69 4.58 - [facility] OLIVIA 5.54 [facility] x10(6)/[facility] LABORATORY Hemoglobin 13.5 (L) 13.7 - [facility] 16.5 gm/dL [facility] LABORATORY Hematocrit 41.7 40.5 - [facility] OLIVIA 48.5 % [facility] LABORATORY MCV 88.9 82.9 - [facility] 93.1 fL [facility] LABORATORY MCH 28.8 27.5 - [place] OLIVIA 32.1 pg [facility] LABORATORY MCHC 32.4 32.0 - [facility] OLIVIA 35.7 gm/dL [facility] LABORATORY Platelets 196 145 - 357 [facility] x10(3)/[facility] LABORATORY RDWSD 46.7 (H) 36.0 - [place] OLIVIA 45.0 [facility] LABORATORY RDWCV 14.5 (H) 11.4 - [place] OLIVIA 13.8 % [facility] LABORATORY MPV 12.1 7.6 - 12.9 MELINA MONAE [facility] LABORATORY nRBC % Auto 0.0 % [facility] LABORATORY nRBC Abs Auto 0.000 0.000 - MELINA MONAE 0.000 [facility] x10(3)/[facility] LABORATORY Specimen Anatomical Collection Method Collection Time Receive d Time (Source) Location / / Volume Laterality Blood specimen 12/04/2019 12:55 0 1:06 (specimen) PM EDT PM EDT Resulting Agency Comment Spec In Lab Gretchen Yoon MD HEMATOLOGY ORDERABLES Performing Organization Address City/[facility]/[place] [address] EKG 12 Lead (12/04/2019 10:43 AM EDT) Component Value Ref Range Test Analysis Performed Pathologis t Method Time At Signature Ventricular rate 158 BPM MUSE SYSTEM Atrial Rate 102 BPM MUSE SYSTEM QRS Duration 92 ms MUSE SYSTEM Q-T Interval 294 ms MUSE SYSTEM QTC Calculated 476 ms MUSE SYSTEM (Bezet) Calculated R [place] 17 degrees MUSE SYSTEM Calculated T [place] 90 degrees MUSE SYSTEM INTERPRETATION Atrial fibrillation with rapid ventricular response MUSE SYSTEM Possible Inferior infarct (cited on or before 29-NOV-2019) Abnormal ECG When compared with ECG of 30-NOV-2019 21:07, Atrial fibrillation has replaced Sinus rhythm Vent. rate has increased BY ??65 BPM Confirmed by MD Ceja Daniel ([id number]) on 12/05/2019 8:59:44 AM Specimen Anatomical Collection Method Collection Time Receive d Time (Source) Location / / Volume Laterality 12/04/2019 10:43 12/05/2019 8:59 AM EDT AM EDT Gretchen Yoon MD ECG ORDERABLES Performing Organization Address City/State/ZIP Code Phon e Number MUSE SYSTEM (ABNORMAL) Magnesium (12/04/2019 4:28 AM EDT) P athologist Signature Magnesium 1.17 (H) 0.69 - 1.07 [facility] mmol/L [facility] LABORATORY Specimen Anatomical Collection Method Collection Time Receive d Time (Source) Location / / Volume Laterality Blood specimen 12/04/2019 4:28 AM 020 4:40 (specimen) EDT AM EDT Resulting Agency Comment Spec In Lab Gretchen Yoon MD CHEMISTRY ORDERABLES Performing Organization Address City/State/Z[place] [address] (ABNORMAL) BMP w/fasting Glucose (12/04/2019 4:28 AM EDT) athologist Signature Glucose 108 (H) 65 - 99 [facility] Fasting mg/dL [facility] LABORATORY Comment: ?Fasting* Glucose Interpretive C [...] of Diabetes Mellitus, Position Statement from the [place] [employer]. ??Diabete s Care, Volume 33, Supplement 1, Jul 2009 BUN 19 10 - 20 mg/dL [facility] LABORATORY Creatinine 0.89 0.80 - 1.50 mg/dL [facility] LABORATORY Sodium 135 135 - 145 [...] Anion Gap 12 5 - 15 mmol/L [facility] LABORATORY Calcium 8.5 8.5 - [...] of body mass or the acutely ill. [email or web address] [email or web address] eGFR 98 >=60 mL/min/1.73 m?? [facility] LABORATORY Comment: The eGFR was calculated using the CKD-EP I equation. As with all creatinine based estimates of kidney function, eGFR values calculated with the CKD-EPI equation are not accurate in patients wi th acute kidney failure, extremes of body mass or the acutely ill. [email or web address] [email or web address] Specimen Anatomical Collection Method Collection Time Receive d Time (Source) Location / / Volume Laterality Blood specimen 12/04/2019 4:28 AM 020 4:40 (specimen) EDT AM EDT Resulting Agency Comment Spec In Lab Gretchen Yoon MD CHEMISTRY ORDERABLES Performing Organization Address City/State/[place] [address] (ABNORMAL) Hemogram (12/04/2019 4:28 AM EDT) Analysis Performed At Patho logist Time Signature WBC 7.8 4.0 - 9.5 [facility] x10(3)/[facility] LABORATORY RBC 4.10 (L) 4.58 - [facility] 5.54 [facility] x10(6)/[facility] LABORATORY Hemoglobin 12.0 (L) 13.7 - [facility] 16.5 gm/dL [facility] LABORATORY Hematocrit 36.5 (L) 40.5 - [facility] 48.5 % [facility] LABORATORY MCV 89.0 82.9 - [facility] 93.1 fL [facility] LABORATORY MCH 29.3 27.5 - [place] MONAE 32.1 pg [facility] LABORATORY MCHC 32.9 32.0 - M[place] MONAE 35.7 gm/dL [facility] LABORATORY Platelets 151 145 - 357 MELINA MARSHOLIVIA x10(3)/[facility] LABORATORY RDWSD 46.9 (H) 36.0 - MEL[place] MONAE 45.0 [facility] LABORATORY RDWCV 14.4 (H) 11.4 - M[place] MONAE 13.8 % [facility] LABORATORY MPV 12.2 7.6 - 12.9 MELINA MONAE fL [facility] LABORATORY nRBC % Auto 0.0 % [facility] nRBC Abs Auto 0.000 0.000 - [place] MONAE 0.000 [facility] x10(3)/[facility] LABORATORY Specimen Anatomical Collection Method Collection Time Receive d Time (Source) Location / / Volume Laterality Blood specimen 12/04/2019 4:28 AM 020 4:40 (specimen) EDT AM EDT Resulting Agency Comment Spec In Lab Gretchen Yoon MD HEMATOLOGY ORDERABLES Performing Organization Address City/[facility]/ZIP Code Phon e Number [address] Potassium (12/03/2019 7:55 PM EDT) athologist Signature Potassium 3.9 3.5 - 5.0 [facility] mmol/L [facility] LABORATORY Comment: Please note: [...] Address City/State/ZIP Code Phon e Number [address] Potassium (12/03/2019 1:57 PM EDT) athologist Signature Potassium 3.7 3.5 - 5.0 [place] OLIVIA mmol/L [facility] LABORATORY Comment: Please note: [...] Organization Address City/State/ZIP [place] [address] (ABNORMAL) Hemogram (12/03/2019 1:57 PM EDT) Analysis Performed At Patho logist Time Signature WBC 8.8 4.0 - 9.5 [facility] x10(3)/[facility] LABORATORY RBC 4.27 (L) 4.58 - [place] OLIVIA 5.54 [facility] x10(6)/[facility] LABORATORY Hemoglobin 12.5 (L) 13.7 - [place] OLIVIA 16.5 gm/dL [facility] LABORATORY Hematocrit 37.5 (L) 40.5 - [place] OLIVIA 48.5 % [facility] LABORATORY MCV 87.8 82.9 - [place] OLIVIA 93.1 [facility] LABORATORY MCH 29.3 27.5 - [place] OLIVIA 32.1 pg [facility] LABORATORY MCHC 33.3 32.0 - [place] OLIVIA 35.7 gm/dL [facility] LABORATORY Platelets 158 145 - 357 [employer] x10(3)/[facility] LABORATORY RDWSD 46.9 (H) 36.0 - [place] OLIVIA 45.0 [facility] LABORATORY RDWCV 14.5 (H) 11.4 - [place] OLIVIA 13.8 % [facility] LABORATORY MPV 12.2 7.6 - 12.9 MELINA OLIVIA [facility] LABORATORY nRBC % Auto 0.0 % [facility] LABORATORY nRBC Abs Auto 0.000 0.000 - [place] OLIVIA 0.000 [facility] x10(3)/[facility] LABORATORY Specimen Anatomical Collection Method Collection Time Receive d Time (Source) Location / / Volume Laterality Blood specimen 12/03/2019 1:57 PM 020 2:21 (specimen) EDT PM EDT Resulting Agency Comment Spec In Lab Gretchen Yoon MD HEMATOLOGY ORDERABLES Performing Organization Address City/State/ZIP Code Phon e Number [address] Magnesium (12/03/2019 4:02 AM EDT) athologist Signature Magnesium 0.79 0.69 - 1.07 [facility] mmol/L [facility] LABORATORY Specimen Anatomical Collection Method Collection Time Receive d Time (Source) Location / / Volume Laterality Blood specimen 12/03/2019 4:02 AM 020 4:16 (specimen) EDT AM EDT Resulting Agency Comment Spec In Lab Gretchen Yoon MD CHEMISTRY ORDERABLES Performing Organization Address City/State/[place] [address] (ABNORMAL) BMP w/fasting Glucose (12/03/2019 4:02 AM EDT) P athologist Signature Glucose 100 (H) 65 - 99 [facility] Fasting mg/dL [facility] LABORATORY Comment: ?Fasting* Glucose Interpretive C [...] of Diabetes Mellitus, Position Statement from the [place] [employer]. ??Diabete s Care, Volume 33, Supplement 1, Jul 2009 BUN 17 10 - 20 mg/dL [facility] LABORATORY Creatinine 0.95 0.80 - 1.50 mg/dL [facility] LABORATORY Sodium 136 135 - 145 [...] Anion Gap 15 5 - 15 mmol/L [facility] LABORATORY Calcium 8.3 (L) 8.5 [...] of body mass or the acutely ill. [email or web address] [email or web address] eGFR 92 >=60 mL/min/1.73 m?? [facility] LABORATORY Comment: The eGFR was calculated using the CKD-EP I equation. As with all creatinine based estimates of kidney function, eGFR values calculated with the CKD-EPI equation are not accurate in patients wi th acute kidney failure, extremes of body mass or the acutely ill. [email or web address] Specimen Anatomical Collection Method Collection Time Receive d Time (Source) Location / / Volume Laterality Blood specimen 12/03/2019 4:02 AM 020 4:16 (specimen) EDT AM EDT Resulting Agency Comment Spec In Lab Gretchen Yoon MD CHEMISTRY ORDERABLES Performing Organization Address City/State/ZIP [place] [address] (ABNORMAL) Hemogram (12/03/2019 4:02 AM EDT) Analysis Performed At Patho logist Time Signature WBC 9.1 4.0 - 9.5 [facility] x10(3)/[facility] LABORATORY RBC 4.01 (L) 4.58 - [facility] 5[facility]54 [facility] x10(6)/[facility] LABORATORY Hemoglobin 11.8 (L) 13.7 - [facility] 16.5 gm/dL [facility] LABORATORY Hematocrit 35.6 (L) 40.5 - [facility] 48.5 % [facility] LABORATORY MCV 88.8 82.9 - [facility] 93.1 [facility] LABORATORY MCH 29.4 27.5 - [facility] 32.1 pg [facility] LABORATORY MCHC 33.1 32.0 - [facility] 35.7 gm/dL [facility] LABORATORY Platelets 130 (L) 145 - 357 [facility] x10(3)/[facility] LABORATORY RDWSD 46.6 (H) 36.0 - [facility] 45.0 [facility] LABORATORY RDWCV 14.4 (H) 11.4 - [facility] 13.8 % [facility] LABORATORY MPV 12.4 7.6 - 12.9 [facility] LABORATORY nRBC % Auto 0.0 % [facility] LABORATORY nRBC Abs Auto 0.000 0.000 - [facility] 0.000 [facility] x10(3)/[facility] LABORATORY Specimen Anatomical Collection Method Collection Time Receive d Time (Source) Location / / Volume Laterality Blood specimen 12/03/2019 4:02 AM 020 4:16 (specimen) EDT AM EDT Resulting Agency Comment Spec In Lab Gretchen Yoon MD HEMATOLOGY ORDERABLES Performing Organization Address City/State/Z[place] [address] XR Chest One View [...] Signature WBC 10.6 (H) 4.0 - 9.5 [facility] x10(3)/[facility] LABORATORY RBC 4.00 (L) 4.58 - [facility] 5.54 [facility] x10(6)/[facility] LABORATORY Hemoglobin 11.9 (L) 13.7 - [facility] 16.5 gm/dL [facility] LABORATORY Hematocrit 35.7 (L) 40.5 - [facility] 48.5 % [facility] LABORATORY MCV 89.3 82.9 - [facility] 93.1 [facility] LABORATORY MCH 29.8 27.5 - [facility] 32.1 pg [facility] LABORATORY MCHC 33.3 32.0 - [facility] 35.7 gm/dL [facility] LABORATORY Platelets 120 (L) 145 - 357 [facility] x10(3)/[facility] LABORATORY RDWSD 47.5 (H) 36.0 - [facility] 45.0 [facility] LABORATORY RDWCV 14.6 (H) 11.4 - [facility] 13.8 % [facility] LABORATORY MPV 12.0 7.6 - 12.9 [facility] LABORATORY nRBC % Auto 0.0 % [facility] LABORATORY nRBC Abs Auto 0.000 0.000 - [facility] 0.000 [facility] x10(3)/[facility] LABORATORY Specimen Anatomical Collection Method Collection Time Receive d Time (Source) Location / / Volume Laterality Blood specimen 12/02/2019 12:50 0 1:22 (specimen) PM EDT PM EDT Resulting Agency Comment Spec In Lab Gretchen Yoon MD HEMATOLOGY ORDERABLES Performing Organization Address City/State/Z[place] [address] Blue Tube HOLD (12/02/2019 4:55 AM EDT) P athologist Signature Blue Hold Sample in [facility] lab. [facility] LABORATORY Specimen Anatomical Collection Method Collection Time Receive d Time (Source) Location / / Volume Laterality Blood specimen Venous Draw / 12/02/2019 4:55 AM 2019 5:03 (specimen) Unknown EDT AM EDT Darrell Glasgow MD HEMATOLOGY ORDERABLES Performing Organization Address City/State/ZIP Code Phon e Number [address] Magnesium (12/02/2019 4:55 AM EDT) athologist Signature Magnesium 0.85 0.69 - 1.07 [facility] mmol/L [facility] LABORATORY Specimen Anatomical Collection Method Collection Time Receive d Time (Source) Location / / Volume Laterality Blood specimen 12/02/2019 4:55 AM 020 5:02 (specimen) EDT AM EDT Resulting Agency Comment Spec In Lab Gretchen Yoon MD CHEMISTRY ORDERABLES Performing Organization Address City/[facility]/[place] [address] (ABNORMAL) BMP w/fasting Glucose (12/02/2019 4:55 AM EDT) athologist Signature Glucose 114 (H) 65 - 99 [facility] Fasting mg/dL [facility] LABORATORY Comment: ?Fasting* Glucose Interpretive C [...] of Diabetes Mellitus, Position Statement from the [place] [employer]. ??Diabete s Care, Volume 33, Supplement 1, Jul 2009 BUN 13 10 - 20 mg/dL [facility] LABORATORY Creatinine 0.93 0.80 - 1.50 mg/dL [facility] LABORATORY Sodium 135 135 - 145 [...] Anion Gap 12 5 - 15 mmol/L [facility] LABORATORY Calcium 8.1 (L) 8.5 [...] of body mass or the acutely ill. [email or web address]AVERnkf eGFR 94 >=60 mL/min/1.73 m?? [facility] LABORATORY Comment: The eGFR was calculated using the CKD-EP I equation. As with all creatinine based estimates of kidney function, eGFR values calculated with the CKD-EPI equation are not accurate in patients wi th acute kidney failure, extremes of body mass or the acutely ill. [email or web address] Specimen Anatomical Collection Method Collection Time Receive d Time (Source) Location / / Volume Laterality Blood specimen 12/02/2019 4:55 AM 020 5:02 (specimen) EDT AM EDT Resulting Agency Comment Spec In Lab Gretchen Yoon MD CHEMISTRY ORDERABLES Performing Organization Address City/State/Z[place] [address] (ABNORMAL) Hemogram (12/02/2019 4:55 AM EDT) Analysis Performed At Patho logist Time Signature WBC 9.3 4.0 - 9.5 [facility] x10(3)/[facility] LABORATORY RBC 3.71 (L) 4.58 - MELINA OLIVIA 5.54 [facility] x10(6)/[facility] LABORATORY Hemoglobin 10.8 (L) 13.7 - [facility] 16.5 gm/dL [facility] LABORATORY Hematocrit 33.1 (L) 40.5 - [facility] 48.5 % [facility] LABORATORY MCV 89.2 82.9 - [facility] 93.1 [facility] LABORATORY MCH 29.1 27.5 - [facility] 32.1 pg [facility] LABORATORY MCHC 32.6 32.0 - [facility] 35.7 gm/dL [facility] LABORATORY Platelets 93 (L) 145 - 357 [facility] x10(3)/[facility] LABORATORY RDWSD 47.1 (H) 36.0 - [facility] 45.0 [facility] LABORATORY RDWCV 14.6 (H) 11.4 - [facility] 13.8 % [facility] LABORATORY MPV 11.7 7.6 - 12.9 [facility] LABORATORY nRBC % Auto 0.0 % [facility] LABORATORY nRBC Abs Auto 0.000 0.000 - [facility] 0.000 [facility] x10(3)/[facility] LABORATORY Specimen Anatomical Collection Method Collection Time Receive d Time (Source) Location / / Volume Laterality Blood specimen 12/02/2019 4:55 AM 020 5:02 (specimen) EDT AM EDT Resulting Agency Comment Spec In Lab Gretchen Yoon MD HEMATOLOGY ORDERABLES Performing Organization Address City/State/Z[place] [address] Transfuse 1 unit platelets, [...] questions regarding this report, please contact [facility] number below. ? Electronically signed by: Angel Luis Barboza MD, [facility] ([phone]), at 12/01/2019 8:02 PM Narrative 12/01/2019 8:02 [...] questions regarding this report, please contact [facility] number below. Electronically signed by: Angel Luis Barboza MD, [facility] ([phone]), at 12/01/2019 8:02 PM Gretchen Yoon MD [...] Organization Address City/State/ZIP Code Phon e Number [place] [id number] HOSPITAL LABORATORY Drive Duplex for DVT, Arm, Unilat (12/01/2019 5:08 PM EDT) Component Value Ref Test Analysis Performed At Patholo gist Range Method Time Signature VB Text Department: Vascular Surgery Lab VASCUBASE Report Patient: [id number] (ANGEL LUIS SALINAS) CPT: 10412 ICD10: R60.0 Referring Physician: GRETCHEN YOON ?? [...] questions regarding this report, please contact [facility] number below. ? Electronically signed by: Merari Collins [facility] ([phone]), at 12/01/2019 3:53 PM Narrative 12/01/2019 3:53 PM EDT EXAMINATION: CT HEAD WO CONTRAST (GENERIC) CLINICAL HISTORY: Headache, intracranial hemorrhage suspected Serial CT scan: please assess for propag ation of known ICH noted on prior Head CT/imaging. TECHNIQUE: CT head performed without intravenous co ntrast administration. COMPARISON: Head CT 11/30/2019. CT angiogram of the [place] 11/01. FINDINGS: Ventricles are normal in size. Basal cis terns are patent. Unchanged hyperdense 2.3 x 0.7 x 0.6 cm tubular hemorrhage projecting along the course of the left optic tract (axial se [facility] 2 image 16), consistent with [...] Head CT 11/30/2019. CT angiogram of the [place] 11/01. FINDINGS: Ventricles are normal [...] Scan, Peripheral Blood (12/01/2019 12:51 PM EDT) [facility] Method Time Signature Plat Estimate Decreased [facility] LABORATORY RBC Morphology Normal [facility] Giant Less than 1 /HPF [facility] Platelets [facility] LABORATORY Specimen Anatomical Collection Method Collection Time Receive d Time (Source) Location / / Volume Laterality Blood specimen 12/01/2019 12:51 0 1:05 (specimen) PM EDT PM EDT Resulting Agency Comment Spec In Lab Riki Stevens MD HEMATOLOGY ORDERABLES Performing Organization Address City/State/[place] [address] [address] (ABNORMAL) Differential, Automated (12/01/2019 12:51 PM EDT) [facility] Method Time Signature Neutrophils % 74.9 % [facility] LABORATORY Neutr Abs (ANC) 6.34 (H) 1.70 - [facility] 6.10 [facility] x10(3)/[facility] LABORATORY Lymphocytes % 11.4 % [facility] Lymphocytes Abs 1.0 0.9 - 3.2 [facility] x10(3)/[facility] LABORATORY Monocytes % 12.4 % [facility] Monocyte Abs 1.0 (H) 0.3 - 0.9 [facility] x10(3)/[facility] LABORATORY Eosinophils % 0.4 % [facility] Eosinophils Abs 0.0 0.0 - 0.4 [facility] x10(3)/[facility] LABORATORY Basophils % 0.4 % [facility] Basophils Abs 0.0 0.0 - 0.1 [facility] x10(3)/[facility] LABORATORY Immature [...] Pita Gran Abs 0.04 0.00 - 0.04 x10(3)/[facility] MAR Y [facility] LABORATORY Specimen Anatomical Collection Method Collection Time Receive d Time (Source) Location / / Volume Laterality Blood specimen 12/01/2019 12:51 0 1:05 (specimen) PM EDT PM EDT Resulting Agency Comment Spec In Lab Riki Stevens MD HEMATOLOGY ORDERABLES Performing Organization Address City/State/[place] [address] (ABNORMAL) Hemogram (12/01/2019 12:51 PM EDT) Analysis Performed At Patho logist Time Signature WBC 8.4 4.0 - 9.5 [facility] x10(3)/[facility] LABORATORY RBC 3.69 (L) 4.58 - [facility] 5.54 [facility] x10(6)/[facility] LABORATORY Hemoglobin 10.8 (L) 13.7 - [facility] 16.[facility] gm/dL [facility] LABORATORY Hematocrit 32.4 (L) 40.5 - [facility] 48.5 % [facility] LABORATORY MCV 87.8 82.9 - [facility] 93.1 [facility] LABORATORY MCH 29.3 27.5 - [facility] OLIVIA 32.1 pg [facility] LABORATORY MCHC 33.3 32.0 - [facility] 35.7 gm/dL [facility] LABORATORY Platelets 72 (L) 145 - 357 [facility] x10(3)/[facility] LABORATORY RDWSD 47.2 (H) 36.0 - [facility] 45.0 [facility] LABORATORY RDWCV 14.6 (H) 11.4 - [facility] 13.8 % [facility] LABORATORY MPV 12.2 7.6 - 12.9 [facility] LABORATORY nRBC % Auto 0.0 % [facility] LAB[facility]ATORY nRBC Abs Auto 0.000 0.000 - [facility] 0.000 [facility] x10(3)/[facility] LABORATORY Specimen Anatomical Collection Method Collection Time Receive d Time (Source) Location / / Volume Laterality Blood specimen 12/01/2019 12:51 0 1:05 (specimen) PM EDT PM EDT Resulting Agency Comment Spec In Lab Riki Stevens MD HEMATOLOGY ORDERABLES Performing Organization Address City/[facility]/ZIP Code Phon e Number [address] (ABNORMAL) Coox2 (12/01/2019 11:42 AM EDT) Analysis Performed At Patho logist Time Signature pO2 Coox [address] [facility] LABORATORY Hgb Blood Gas 11.6 (L) 13.7 - [facility] 16.5 gm/dL [facility] LABORATORY O2HB Coox 60.8 % [facility] [...] Organization Address City/State/[place] [address] Sedimentation rate (12/01/2019 3:55 AM EDT) P athologist Signature Sed Rate 25 3 - 46 [facility] mm/hr [facility] LABORATORY Comment: Effective June 11, 2019 [...] Winn MD HEMATOLOGY ORDERABLES Performing Organization Address City/[facility]/[place] [address] (ABNORMAL) CRP, acute inflammation [...] Winn MD CHEMISTRY ORDERABLES Performing Organization Address City/[facility]/[place] [address] ABORH Recheck Status (12/01/2019 3:55 AM EDT) [facility] Method Time Signature ABORH Recheck Order Placed [facility] LABORATORY ABORH Type Complete [facility] LABORATORY Specimen Anatomical Collection Method Collection Time Receive d Time (Source) Location / / Volume Laterality Blood specimen 12/01/2019 3:55 AM 020 4:15 (specimen) EDT AM EDT Resulting Agency Comment Spec In Lab Lewis Gee MD BLOOD BANK ORDERABLES Performing Organization Address City/[facility]/[place] [address] Antibody screen (12/01/2019 3:55 AM EDT) [facility] Method Time Signature Ab Screen Negative [facility] LABORATORY Expires at 12/04/2019 [facility] 2077 on: [facility] LABORATORY Specimen Anatomical Collection Method Collection Time Receive d Time (Source) Location / / Volume Laterality Blood specimen 12/01/2019 3:55 AM 020 4:15 (specimen) EDT AM EDT Resulting Agency Comment Spec In Lab Lewis Gee MD BLOOD BANK ORDERABLES Performing Organization Address City/State/[place] [address] ABO/Rh Typing (12/01/2019 3:55 AM EDT) athologist Signature ABORh Type AB Pos [facility] LABORATORY Specimen Anatomical Collection Method Collection Time Receive d Time (Source) Location / / Volume Laterality Blood specimen 12/01/2019 3:55 AM 020 4:15 (specimen) EDT AM EDT Resulting Agency Comment Spec In Lab Lewis Gee MD BLOOD BANK ORDERABLES Performing Organization Address City/[facility]/[place] [address] (ABNORMAL) Troponin (12/01/2019 3:55 AM EDT) athologist Signature Troponin-T 4.35 (H) 0.00 - [facility] 0.00 ng/mL [facility] LABORATORY Comment: result rechecked-slw The 99th percentile for Troponin T is le ss than 0.01 ng/mL, any detectable cTnT concentration using this assay should be considered elevated. According to the third universal definit ion of myocardial infarction the following criteria with a clinical prese ntation consistent with acute myocardial ischemia meets the diagnosis for a myocardial infarction (MA). Detection of a rise and/or fall of [...] additional sample may be indicated. Reference: Third [place] Definition of Myocardial Infarction. Journal of the [place] [employer] 2012;60:1581-98 Specimen Anatomical Collection Method Collection Time Receive d Time (Source) Location / / Volume Laterality Blood specimen 12/01/2019 3:55 AM 020 4:00 (specimen) EDT AM EDT Resulting Agency Comment Spec In Lab Gretchen Yoon MD CHEMISTRY ORDERABLES Performing Organization Address City/[facility]/ZIP Code Phon e Number [address] Magnesium (12/01/2019 3:55 AM EDT) P athologist Signature Magnesium 0.96 0.69 - 1.07 [facility] mmol/L [facility] LABORATORY Specimen Anatomical Collection Method Collection Time Receive d Time (Source) Location / / Volume Laterality Blood specimen 12/01/2019 3:55 AM 020 4:00 (specimen) EDT AM EDT Resulting Agency Comment Spec In Lab Gretchen Yoon MD CHEMISTRY ORDERABLES Performing Organization Address City/State/[place] [address] (ABNORMAL) BMP w/fasting Glucose (12/01/2019 3:55 AM EDT) P athologist Signature Glucose 148 (H) 65 - 99 [facility] Fasting mg/dL [facility] LABORATORY Comment: ?Fasting* Glucose Interpretive C [...] of Diabetes Mellitus, Position Statement from the [place] [employer]. ??Diabete s Care, Volume 33, Supplement 1, Jul 2009 BUN 11 10 - 20 mg/dL [facility] LABORATORY Creatinine 0.96 0.80 - 1.50 mg/dL [facility] LABORATORY Sodium 132 (L) 135 - [...] Anion Gap 10 5 - 15 mmol/L [facility] LABORATORY Calcium 7.6 (L) 8.5 [...] of body mass or the acutely ill. [email or web address] eGFR 91 >=60 mL/min/1.73 m?? [facility]ORY Comment: The eGFR was calculated using the CKD-EP I equation. As with all creatinine based estimates of kidney function, eGFR values calculated with the CKD-EPI equation are not accurate in patients wi th acute kidney failure, extremes of body mass or the acutely ill. [email or web address] Specimen Anatomical Collection Method Collection Time Receive d Time (Source) Location / / Volume Laterality Blood specimen 12/01/2019 3:55 AM 020 4:00 (specimen) EDT AM EDT Resulting Agency Comment Spec In Lab Gretchen Yoon MD CHEMISTRY ORDERABLES Performing Organization Address City/State/ZIP Code Phon [place] Number [facility] [place] [address] (ABNORMAL) Hemogram (12/01/2019 3:55 AM EDT) Analysis [facility] Time Signature WBC 11.0 (H) 4.0 - 9.5 [facility] x10(3)/[facility] LABORATORY RBC 3.46 (L) 4.58 - [facility] 5.54 [facility] x10(6)/[facility] LABORATORY Hemoglobin 10.2 (L) 13.7 - [facility] 16.5 gm/dL [facility] LABORATORY Hematocrit 31.2 (L) 40.5 - [facility] 48.5 % [facility] LABORATORY MCV 90.2 82.9 - [facility] 93.1 [facility] LABORATORY MCH 29.5 27.5 - [facility] 32.1 pg [facility] LABORATORY MCHC 32.7 32.0 - [facility] 35.7 gm/dL [facility] LABORATORY Platelets 98 (L) 145 - 357 [facility] x10(3)/[facility] LABORATORY RDWSD 47.9 (H) 36.0 - [facility] 45.0 [facility] LABORATORY RDWCV 14.6 (H) 11.4 - [facility] 13.8 % [facility] LABORATORY MPV 12.3 7.6 - 12.9 [facility] LABORATORY nRBC % Auto 0.0 % [facility] LABORATORY nRBC Abs Auto 0.000 0.000 - [facility] 0.000 [facility] x10(3)/[facility] LABORATORY Specimen Anatomical Collection Method Collection Time Receive d Time (Source) Location / / Volume Laterality Blood specimen 12/01/2019 3:55 AM 020 4:00 (specimen) EDT AM EDT Resulting Agency Comment Spec In Lab Gretchen Yoon MD HEMATOLOGY ORDERABLES Performing Organization Address City/State/Z[place] [address] (ABNORMAL) BLOOD GAS 2 ARTERIAL (11/30/2019 10:39 PM EDT) Analysis Performed At [facility] Time Signature pH Art 7.45 7.35 - [facility] 7.45 [facility] LABORATORY pCO2 Art 23 (L) 35 - 45 [facility] LABORATORY pO2 Art 76 (L) 85 - 104 [facility] LABORATORY HCO3 Art 15.3 (L) 20.0 - [facility] 26.0 [facility] mmol/L [facility] LABORATORY BE Art -8.7 (L) -3.0 - 3.0 [facility] mmol/L [facility] LABORATORY Hgb Blood Gas 11.7 (L) 13.7 - [facility] 16.5 gm/dL [facility] O2HB Art 94.2 94.0 - [facility] 97.0 % [facility] LABORATORY COHB Art 0.5 % [facility] LABORATORY Comment: Nonsmokers: 0.5-1.5% COHB Smokers: Variable, but usually less than 10% Toxic: 20-30% COHB Lethal: Greater than 60% COHB METHB Art 0.6 <=1.5 % [facility] LABORATORY Na Whole Blood 133 (L) 135 - 145 mmol/L [facility] LABORATORY K Whole Blood 3.8 3.5 - 5.0 mmol/L [facility] LABORATORY Comment: Please note: Patients [...] Blood 109 (H) 98 - 107 mmol/L [facility] LABORATORY Gluc Whole Bld 120 65 - 199 mg/dL [facility] LABORATORY Comment: Diabetes: >=200 mg/dL plus symp toms. Lactate WB 0.8 0.5 - 2.2 mmol/L [facility] LABORATORY FIO2 Art 100 % [facility] LABORATORY PF Ratio Art 76 [facility] LABORATORY Specimen Anatomical Collection Method Collection Time Receive d Time (Source) Location / / Volume Laterality Blood specimen 11/30/2019 10:39 0 (specimen) PM EDT 10:39 PM EDT Gretchen Yoon MD CHEMISTRY ORDERABLES Performing Organization Address City/[facility]/[place] [address] EKG 12 Lead (11/30/2019 [...] (Bezet) Calculated P 12 degrees [facility] [place] Calculated R 19 degrees [facility] [place] Calculated T -47 degrees [facility] [place] INTERPRETATION Sinus rhythm with Premature supraventricular complexes [...] Yoon MD ECG ORDERABLES Performing Organization Address City/[facility]/ZIP Code Phon e Number MUSE SYSTEM (ABNORMAL) Urinalysis Microscopic Exam (11/30/2019 8:40 PM EDT) P athologist Signature RBC UA 27 (H) 0 - 3 /HPF [facility] LABORATORY WBC UA 4 (H) 0 - 3 /HPF [facility] LABORATORY Hyaline Cast 3 (H) 0 - 2 /LPF [facility] LABORATORY Specimen (Source) Anatomical Collection Method Collection Time Re ceived Time Location / / Volume Laterality Urine specimen 11/30/2019 8:40 11/30/2019 obtained via PM EDT 10:51 PM EDT indwelling urinary catheter (specimen) Resulting Agency Comment Spec In Lab Rossy Winn MD URINE ORDERABLES Performing Organization Address City/[facility]/[place] [address] (ABNORMAL) Urinalysis with reflex Culture (11/30/2019 8:40 PM EDT) Patholo gist Method Time Signature Glucose UA Negative Negative [facility] mg/dL [facility] LABORATORY Protein UA Negative Negative [facility] mg/dL [facility] LABORATORY Bilirubin UA Negative Negative [facility] mg/dL [facility] LABORATORY Comment: Clinical correlation required for positi ve Urine Bilirubin results as false positive may occur with some drugs and d rug related products. If a false positive is suspected a serum total bili morales should be considered if clinically indicated. Urobilinogen UA Normal Normal mg/dL [facility] LABORATORY pH UA 5.5 5.0 - 8.0 [facility] LABORATORY Blood UA Moderate (A) Negative mg/dL [facility] LABORATORY Ketones UA 40 (A) Negative mg/dL [facility] Nitrite UA Negative Negative [facility] LABORATORY Leukocytes UA Trace (A) Negative [facility] LABORATORY Appearance UA Clear Clear [facility] LABORATORY Spec [place] UA 1.026 1.006 - 1.030 [facility] LABORATORY Color UA Yellow Yellow [facility] LABORATORY Culture Reflexed No [facility] LABORATORY Specimen (Source) Anatomical Collection Method Collection Time Re ceived Time Location / / Volume Laterality Urine specimen 11/30/2019 8:40 11/30/2019 obtained via PM EDT 10:51 PM EDT indwelling urinary catheter (specimen) Resulting Agency Comment Spec In Lab Gretchen Yoon MD URINE ORDERABLES Performing Organization Address City/State/Z[place] [address] (ABNORMAL) pro-Brain Natriuretic Peptide (11/30/2019 8:30 PM EDT) P athologist Signature ProBNP 2,802 (H) <=125 [facility] pg[facility] LABORATORY Specimen Anatomical Collection Method Collection Time Receive d Time (Source) Location / / Volume Laterality Blood specimen Venous Draw / 11/30/2019 8:30 PM 2019 8:36 (specimen) Unknown EDT PM EDT Resulting Agency Comment Spec In Lab Rossy Winn MD CHEMISTRY ORDERABLES Performing Organization Address City/[facility]/ZIP [place] [address] (ABNORMAL) Troponin (11/30/2019 8:30 PM EDT) athologist Signature Troponin-T 5.04 (H) 0.00 - [place] MONAE 0.00 ng/mL [facility] LABORATORY Comment: The 99th percentile for Troponin T is le ss than 0.01 ng/mL, any detectable cTnT concentration using this assay should be considered elevated. According to the third universal definit ion of myocardial infarction the following criteria with a clinical prese ntation consistent with acute myocardial ischemia meets the diagnosis for a myocardial infarction (MA). Detection of a rise and/or fall of [...] additional sample may be indicated. Reference: Third [place] Definition of Myocardial Infarction. Journal of the [place] [employer] 2012;60:1581-98 Specimen Anatomical Collection Method Collection Time Receive d Time (Source) Location / / Volume Laterality Blood specimen Venous Draw / 11/30/2019 8:30 PM 2019 8:36 (specimen) Unknown EDT PM EDT Resulting Agency Comment Spec In Lab Rossy Winn MD CHEMISTRY ORDERABLES Performing Organization Address City/[facility]/ZIP Code [place] [address] Magnesium (11/30/2019 8:30 PM EDT) athologist Signature Magnesium 0.79 0.69 - 1.07 [place] mmol/L [facility] LABORATORY Specimen Anatomical Collection Method Collection Time Receive d Time (Source) Location / / Volume Laterality Blood specimen 11/30/2019 8:30 PM 020 8:35 (specimen) EDT PM EDT Resulting Agency Comment Spec In Lab Gretchen Yoon MD CHEMISTRY ORDERABLES Performing Organization Address City/State/ZIP [place] [address] (ABNORMAL) Basic Metabolic Panel (non-fasting) (11/30/2019 8:30 PM EDT) athologist Signature Glucose Lvl 132 65 - 199 [facility] mg/dL [facility] LABORATORY Comment: Diabetes: >=200 mg/dL plus symp toms BUN 12 10 - 20 mg/dL [facility] LABORATORY Creatinine 0.94 0.80 - 1.50 mg/dL [facility] LABORATORY Sodium 136 135 - 145 [...] Anion Gap 11 5 - 15 mmol/L [facility] LABORATORY Calcium 7.9 (L) 8.5 [...] of body mass or the acutely ill. [email or web address] eGFR 93 >=60 mL/min/1.73 m?? [facility]ORY Comment: The eGFR was calculated using the CKD-EP I equation. As with all creatinine based estimates of kidney function, eGFR values calculated with the CKD-EPI equation are not accurate in patients wi th acute kidney failure, extremes of body mass or the acutely ill. [email or web address] Specimen Anatomical Collection Method Collection Time Receive d Time (Source) Location / / Volume Laterality Blood specimen 11/30/2019 8:30 PM 020 8:35 (specimen) EDT PM EDT Resulting Agency Comment Spec In Lab Gretchen Yoon MD CHEMISTRY ORDERABLES Performing Organization Address City/[facility] [place] [address] Blood culture (11/30/2019 8:30 PM EDT) Patholo gist Method Time Signature Blood Culture No growth [place] at [address] [facility] Specimen Anatomical Collection Method Collection Time Receive d Time (Source) Location / / Volume Laterality Blood specimen 11/30/2019 8:30 PM 020 9:40 (specimen) EDT PM EDT Comment: L HAND Resulting Agency Comment Spec In Lab Gretchen Yoon MD MICROBIOLOGY - BLOOD ORDERAB LES Performing Organization Address City/[facility]/[place] [address] Blood culture (11/30/2019 8:30 PM EDT) Patholo gist Method Time Signature Blood Culture No growth [place] at [address] [facility] Specimen Anatomical Collection Method Collection Time Receive d Time (Source) Location / / Volume Laterality Blood specimen 11/30/2019 8:30 PM 020 9:40 (specimen) EDT PM EDT Comment: R HAND Resulting Agency Comment Spec In Lab Gretchen Yoon MD MICROBIOLOGY - BLOOD ORDERAB LES Performing Organization Address [facility] [place] [address] XR Chest One View [...] Time Signature pH Art 7.45 7.35 - [facility] 7.45 [facility] LABORATORY pCO2 Art 27 (L) 35 - 45 [facility] mmHg [facility] LABORATORY pO2 Art 68 (L) 85 - 104 [facility] LABORATORY HCO3 Art 18.2 (L) 20.0 - [facility] 26.0 [facility] mmol/[facility] LABORATORY BE Art -5.9 (L) -3.0 - 3.0 [facility] mmol/L [facility] LABORATORY Hgb Blood Gas 12.4 (L) 13.7 - [facility] 16.5 gm/dL [facility] O2HB Art 93.1 (L) 94.0 - [facility] 97.0 % [facility] LABORATORY COHB Art 0.8 % [facility] LAB[facility]ORY Comment: Nonsmokers: 0.5-1.5% COHB Smokers: Variable, but usually less than 10% Toxic: 20-30% COHB Lethal: Greater than 60% COHB METHB Art 0.4 <=1.5 % [facility] LABORATORY Na Whole Blood 133 (L) 135 - 145 mmol/L [facility] LABORATORY K Whole Blood 3.6 3.5 - 5.0 mmol/L [facility]ORY Comment: Please note: Patients [...] Blood 108 (H) 98 - 107 mmol/L [facility] LABOR[facility]ORY Gluc Whole Bld 121 65 - 199 mg/dL [facility] LABOR[facility]ORY Comment: Diabetes: >=200 mg/dL plus symp toms. Lactate WB 1.2 0.5 - 2.2 mmol/L [facility] LABORATORY Flow Art 5.0 LPM [facility] LABORATORY Specimen Anatomical Collection Method Collection Time Receive d Time (Source) Location / / Volume Laterality Blood specimen 11/30/2019 8:09 PM 020 8:09 (specimen) EDT PM EDT Gretchen Yoon MD CHEMISTRY ORDERABLES Performing Organization Address City/State/Z[place] [address] Angiogram [place] (11/30/2019 4:36 PM EDT) Anatomical [...] signed by: Angel Luis Barboza MD, Radiology [place] ([phone]), at 11/30/2019 5:04 PM Narrative 11/30/2019 5:04 PM EDT EXAMINATION: CT HEAD WO CONTRAST (GENERIC), CT ANGIOGRAM [place] CLINICAL HISTORY: Headache, intracranial hemorrhage suspected F/U on known ICH - assessing for propaga tion TECHNIQUE: CT head performed without intravenous co ntrast administration. CT angiogram [place] 65 cc Omnipaque 350 administered [...] HEAD WO CONTRAST (GENERI C), CT ANGIOGRAM [place] CLINICAL HISTORY: Headache, intracranial hemorrhage suspected F/U on known ICH - assessing for propaga tion TECHNIQUE: CT head performed without intravenous co ntrast administration. CT angiogram [place] 65 cc Omnipaque 350 administered [...] signed by: Angel Luis Barboza MD, [facility] [place] ([phone]), at 11/30/2019 5:04 PM Gretchen Yoon MD [...] signed by: Angel Luis Barboza MD, [facility] [place] ([phone]), at 11/30/2019 5:04 PM Narrative 11/30/2019 5:04 PM EDT EXAMINATION: CT HEAD WO CONTRAST (GENERIC), CT ANGIOGRAM [place] OF [place] CLINICAL HISTORY: Headache, intracranial hemorrhage suspected F/U on known ICH - assessing for propaga tion TECHNIQUE: CT head performed without intravenous co ntrast administration. CT angiogram [place] of [place] 65 cc Omnipaque 350 administered [...] HEAD WO CONTRAST (GENERI C), CT ANGIOGRAM [place] CLINICAL HISTORY: Headache, intracranial hemorrhage suspected F/U on known ICH - assessing for propaga tion TECHNIQUE: CT head performed without intravenous co ntrast administration. CT angiogram [place] 65 cc Omnipaque 350 administered [...] signed by: Angel Luis Barboza MD, [facility] ([phone]), at 11/30/2019 5:04 PM Gretchen Yoon MD [...] 453 ms MUSE SYSTEM (Bezet) Calculated P [place] 52 degrees MUSE SYSTEM Calculated R [place] 5 degrees MUSE SYSTEM Calculated T [place] -60 degrees MUSE SYSTEM INTERPRETATION Sinus rhythm [...] Nilo ? (Age): 1945(74y) Med Rec#: ? [id number] ?Sex: ?M ? Site Loc: ? [facility] ?Ht / Wt: ??178(cm)/64(kg) Pt. Loc: ?CCU ? BSA: ?1.8 Study Date: ?? 11/30/2019 ?Pt. Type: Inpatient Tape: ? Referring: GILMER Reading: Tello Mejia ([id number]) Vulcan Crewmember: Friend, Lolita Diagnosis: *ST elevation (STEMI) myocardial [...] Vmax ?0.58 ? m/sec ? MV deceleration qgbo650.05 ? m sec ? MV A-wave Vmax [...] ? Mid-Inferior ?Akinetic ? Mid-Inferoseptal ?Normal ? Goode-Septal ? Normal ? Goode-Anterior ? Normal ? Goode-Lateral ?Normal ? Goode-Inferior ? Hypokinetic ? Goode-Tip ?Normal ? This report has been electronically sign ed by: _ Tello Mejia MD ? 11/30/2019 12: 45:27 Images reviewed and interpretation [facility] Cardiac Ultrasound Laboratory Procedure Note Tello Mejia MD - 11/30/2019Formatti ng of this note might be different from the original. Procedure: Transthoracic Echocardiogram Patient: RITA ACOSTA(Age): [birth year](74y) Med Rec#: [id number] Sex: M Site Loc: [facility] Ht / Wt: 178(cm)/64(kg) Pt. Loc: [facility] BSA: 1.8 Study Date: 11/30/2019 Pt. Type: Inpatie nt Tape: Referring: VANGIEJ Reading: Tello Mejia ([id number]) Vulcan Crewmember: Eve Lolita Diagnosis: *ST elevation (STEMI) myocardial [...] MV E-wave Vmax 0.58 m/sec MV deceleration ywfr497.05 msec MV A-wave Vmax 0.74 m/sec MV [...] Hypokinetic Mid-Posterolateral Hypokinetic Mid-Inferior Akinetic Mid-Inferoseptal Normal Goode-Septal Normal Goode-Anterior Normal Goode-Lateral Normal Goode-Inferior Hypokinetic Goode-Tip Normal This report has been electronically sign ed by: _ Tello Mejia MD 11/30/2019 12:45:27 Images reviewed and interpretation verif d [facility] Cardiac Ultrasound Laboratory Gretchen Yoon [...] signed by: Angel Luis Barboza MD, [facility] ([phone]), at 11/30/2019 12:04 PM Narrative 11/30/2019 12:04 [...] signed by: Angel Luis Barboza MD, [facility] [place] ([phone]), at 11/30/2019 12:04 PM Gretchen Yoon MD IMG CT ORDERABLES Magnesium (11/30/2019 8:30 AM EDT) athologist [facility] Magnesium 0.88 0.69 - 1.07 [facility]/L [facility] LABORATORY Specimen Anatomical Collection Method Collection Time Receive d Time (Source) Location / / Volume Laterality Blood specimen Venous Draw / 11/30/2019 8:30 AM 2019 8:37 (specimen) Unknown EDT AM EDT Resulting Agency Comment Spec In Lab Rossy Winn MD CHEMISTRY ORDERABLES Performing Organization Address City/State/[place] [address] (ABNORMAL) CK (11/30/2019 8:30 AM EDT) athologist [facility] CK, Total 1,645 (H) 0 - 200 [facility] LABORATORY Specimen Anatomical Collection Method Collection Time Receive d Time (Source) Location / / Volume Laterality Blood specimen 11/30/2019 8:30 AM 020 8:32 (specimen) EDT AM EDT Resulting Agency Comment Spec In Lab Gretchen Yoon MD CHEMISTRY ORDERABLES Performing Organization Address City/[facility]/ZIP [facility] [place] [address] (ABNORMAL) Troponin (11/30/2019 8:30 AM EDT) athologist [facility] Department Troponin-T 8.04 (H) 0.00 - M[place] OLIVIA 0.00 ng/mL [facility] LABORATORY Comment: result rechecked-rancho The 99th percentile for Troponin T is le ss than 0.01 ng/mL, any detectable cTnT concentration using this assay should be considered elevated. According to the third universal definit ion of myocardial infarction the following criteria with a clinical prese ntation consistent with acute myocardial ischemia meets the diagnosis for a myocardial infarction (MA). Detection of a rise and/or fall of [...] additional sample may be indicated. Reference: Third [place] Definition of Myocardial Infarction. Journal of the [place] [employer] 2012;60:1581-98 Specimen Anatomical Collection Method Collection Time Receive d Time (Source) Location / / Volume Laterality Blood specimen 11/30/2019 8:30 AM 020 8:32 (specimen) EDT AM EDT Resulting Agency Comment Spec In Lab Gretchen Yoon MD CHEMISTRY ORDERABLES Performing Organization Address City/State/Z[place] [address] EKG 12 Lead (11/30/2019 7:57 AM EDT) Component Value Ref Range Test Analysis Performed Pathologis t Method Time At Signature Ventricular rate 64 BPM MUSE SYSTEM Atrial Rate 64 BPM MUSE SYSTEM P-R Interval 132 ms MUSE SYSTEM QRS Duration 78 ms MUSE SYSTEM Q-T Interval 420 ms MUSE SYSTEM QTC Calculated 433 ms MUSE SYSTEM (Bezet) Calculated P [place] 28 degrees MUSE SYSTEM Calculated R [place] 7 degrees MUSE SYSTEM Calculated T [place] -33 degrees MUSE SYSTEM INTERPRETATION Sinus rhythm [...] Signature Glucose 147 (H) 65 - 99 [facility] Fasting mg/dL [facility] LABORATORY Comment: ?Fasting* Glucose Interpretive C [...] of Diabetes Mellitus, Position Statement from the [place] [employer]. ??Diabete s Care, Volume 33, Supplement 1, Jul 2009 BUN 13 10 - 20 mg/dL [facility] LABORATORY Creatinine 0.90 0.80 - 1.50 mg/dL [facility] LABORATORY Sodium 135 135 - 145 [...] Anion Gap 11 5 - 15 mmol/L [facility] LAB[facility]ORY Calcium 7.5 (L) 8.5 [...] of body mass or the acutely ill. [email or web address]nk eGFR 98 >=60 mL/min/1.73 m?? [facility] LABORATORY Comment: The eGFR was calculated using the CKD-EP I equation. As with all creatinine based estimates of kidney function, eGFR values calculated with the CKD-EPI equation are not accurate in patients wi th acute kidney failure, extremes of body mass or the acutely ill. [email or web address]ERnkf Specimen Anatomical Collection Method Collection Time Receive d Time (Source) Location / / Volume Laterality Blood specimen 11/30/2019 2:15 AM 020 2:29 (specimen) EDT AM EDT Resulting Agency Comment Spec In Lab Gretchen Yoon MD CHEMISTRY ORDERABLES Performing Organization Address City/State/ZIP Code Phon e Number [place] [id number] (ABNORMAL) Hemogram (11/30/2019 2:15 AM EDT) Analysis Performed At Patho logist Time Signature WBC 11.2 (H) 4.0 - 9.5 [facility] x10(3)/[facility] LABORATORY RBC 3.83 (L) 4.58 - [facility] 5.54 [facility] x10(6)/[facility] LABORATORY Hemoglobin 11.4 (L) 13.7 - [facility] 16.5 gm/dL [facility] LABORATORY Hematocrit 35.2 (L) 40.5 - [facility] 48.5 % [facility] LABORATORY MCV 91.9 82.9 - [facility] 93.1 fL [facility] LABORATORY MCH 29.8 27.5 - [facility] 32.1 [facility] LABORATORY MCHC 32.4 32.0 - [place] 35.7 gm/dL [facility] LABORATORY Platelets 122 (L) 145 - 357 MELINA MARSHOLIVIA x10(3)/[facility] LABORATORY RDWSD 49.8 (H) 36.0 - [place] 45.0 [facility] LABORATORY RDWCV 14.8 (H) 11.4 - [place] OLIVIA 13.8 % [facility] LABORATORY MPV 12.1 7.6 - 12.9 MELINA MONAE [facility] LABORATORY nRBC % Auto 0.0 % [facility] LABORATORY nRBC Abs Auto 0.000 0.000 - [place] MARSH[place]IV[place] 0.000 [facility] x10(3)/[facility] LABORATORY Specimen Anatomical Collection Method Collection Time Receive d Time (Source) Location / / Volume Laterality Blood specimen 11/30/2019 2:15 AM 020 2:29 (specimen) EDT AM EDT Resulting Agency Comment Spec In Lab Gretchen Yoon MD HEMATOLOGY ORDERABLES Performing Organization Address City/[facility]/ZIP Code Phon e Number [address] (ABNORMAL) CK (11/30/2019 2:15 AM EDT) [facility], Total 1,969 (H) 0 - 200 [facility]L [facility] LABORATORY Specimen Anatomical Collection Method Collection Time Receive d Time (Source) Location / / Volume Laterality Blood specimen 11/30/2019 2:15 AM 020 2:29 (specimen) EDT AM EDT Resulting Agency Comment Spec In Lab Gretchen Yoon MD CHEMISTRY ORDERABLES Performing Organization Address City/State/[place] [address] (ABNORMAL) Troponin (11/30/2019 2:15 AM EDT) [facility] Troponin-T 11.73 (H) 0.00 - [place] 0.00 ng/mL [facility] LABORATORY Comment: result rechecked-slw The 99th percentile for Troponin T is le ss than 0.01 ng/mL, any detectable cTnT concentration using this assay should be considered elevated. According to the third universal definit ion of myocardial infarction the following criteria with a clinical prese ntation consistent with acute myocardial ischemia meets the diagnosis for a myocardial infarction (MA). Detection of a rise and/or fall of [...] additional sample may be indicated. Reference: Third [place] Definition of Myocardial Infarction. Journal of the [place] [employer] 2012;60:1581-98 result rechecked- The 99th percentile for Troponin T is le ss than 0.01 ng/mL, any detectable cTnT concentration using this assay should be considered elevated. According to the third universal definit ion of myocardial infarction the following criteria with a clinical prese ntation consistent with acute myocardial ischemia meets the diagnosis for a myocardial infarction (MA). Detection of a rise and/or fall of [...] additional sample may be indicated. Reference: Third [place] Definition of Myocardial Infarction. Journal of the [place] [employer] 2012;60:1581-98 Corrected from 11.73 ng/ml [HI] on 11/29 3:11:51 EDT by Debi Hawley Specimen Anatomical Collection Method Collection Time Receive d Time (Source) Location / / Volume Laterality Blood specimen 11/30/2019 2:15 AM 020 2:29 (specimen) EDT AM EDT Resulting Agency Comment Spec In Lab Gretchen Yoon MD CHEMISTRY ORDERABLES Performing Organization Address City/[facility]/ZIP Code Phon e Number [address] LDL Cholesterol, Direct (11/30/2019 2:15 AM EDT) P athologist Signature LDL Chol 156 mg/dL [facility] LABORATORY Comment: Lowest Risk: <100 mg/dL Lower Risk: 100-129 mg/dL Borderline High Risk: 130-159 mg/dL High Risk: 160-189 mg/dL Very High Risk: >rk=002 mg/dL Specimen Anatomical Collection Method Collection Time Receive d Time (Source) Location / / Volume Laterality Blood specimen 11/30/2019 2:15 AM 020 2:29 (specimen) EDT AM EDT Resulting Agency Comment Spec In Lab Gretchen Yoon MD CHEMISTRY ORDERABLES Performing Organization Address City/[facility]/ZIP Code Phon e Number [address] (ABNORMAL) Hemoglobin A1c (11/30/2019 2:15 AM EDT) Analysis Performed At Patho logist Time Signature Hemoglobin A1C 6.3 (H) 4.3 - 5.6 [facility] LABORATORY Comment: Reference Range: 4.3 - [...] Mellitus, Diabetes Care 2013; 36: Suppl. 1, W99-68 Est Avg Gluc See note mg/dL KERBS [...] hemoglobinopathies. Additional resources are available on [facility] ADA website. Kiko CARBAJAL, Jenn J, Silas R, et al. ??Tr anslating the A1C assay into estimated average glucose values. ??Diabetes Care 2008:31(8):6669-3495. Specimen Anatomical Collection Method Collection Time Receive d Time (Source) Location / / Volume Laterality Blood specimen 11/30/2019 2:15 AM 020 2:29 (specimen) EDT AM EDT Resulting Agency Comment Spec In Lab Gretchen Yoon MD CHEMISTRY ORDERABLES Performing Organization Address City/State/[place] [address] Lipid Panel (Reflex Direct LDL) (11/30/2019 2:15 AM EDT) athologist Signature Chol, Total 195 mg/dL [facility] LABORATORY Comment: Lower Risk: <200 mg/dL Average Risk: 200-239 mg/dL Higher Risk: >lf=074 mg/dL Triglycerides 93 mg/dL [facility] LABORATORY Comment: Average Risk/Lower Risk: <150 mg/dL Borderline High Risk: 150-199 mg/dL High Risk: 200-499 mg/dL Very High Risk: >gz=788 mg/dL HDL 32 mg/dL [facility] LABORATORY Comment: Males: ?? Higher Risk: <40 mg/dL Females: ?? HIgher Risk: <50 mg/dL LDL Cholesterol 144 mg/dL [facility] LABORATORY Comment: Lowest Risk: <100 mg/dL Lower Risk: 100-129 mg/dL Borderline High Risk: 130-159 mg/dL High Risk: 160-189 mg/dL Very High Risk: >nk=247 mg/dL Chol/HDL Ratio 6.[address] [facility] LABORATORY Lipid Interpretation See Note [facility] LABORATORY Comment: Lipid management should be guided by a p atient? s ASCVD risk, goals and preferences. ACC/AHA Guidelines recommend high intens ity statin if clinical ASCVD or LDL greater than or equal to 190 mg/dL. [email or web address] Adults aged 40-75 with LDL 70-189 mg/dL should have their 10 year ASCVD risk estimated with the ACC/AHA ASCVD risk es timator http://tools.acc.org/EFAUQ-Ryqh-Jhrrgqcb r/ Statin should be discussed if risk [...] Organization Address City/State/Z[place] [address] (ABNORMAL) CK (11/29/2019 6:35 PM EDT) athologist Signature CK, Total 2,780 (H) 0 - 200 [facility] unit/L [facility] LABORATORY Specimen Anatomical Collection Method Collection Time Receive d Time (Source) Location / / Volume Laterality Blood specimen 11/29/2019 6:35 PM 020 6:53 (specimen) EDT PM EDT Resulting Agency Comment Spec In Lab Gretchen Yoon MD CHEMISTRY ORDERABLES Performing Organization Address City/State/Z[place] [address] (ABNORMAL) Troponin (11/29/2019 6:35 PM EDT) athologist Signature Troponin-T 17.60 (H) 0.00 - [facility] 0.00 ng/mL [facility] LABORATORY Comment: result rechecked-az The 99th percentile for Troponin T is le ss than 0.01 ng/mL, any detectable cTnT concentration using this assay should be considered elevated. According to the third universal definit ion of myocardial infarction the following criteria with a clinical prese ntation consistent with acute myocardial ischemia meets the diagnosis for a myocardial infarction (MA). Detection of a rise and/or fall of [...] additional sample may be indicated. Reference: Third [place] Definition of Myocardial Infarction. Journal of the [place] [employer] 2012;60:1581-98 Specimen Anatomical Collection Method Collection Time Receive d Time (Source) Location / / Volume Laterality Blood specimen 11/29/2019 6:35 PM 020 6:53 (specimen) EDT PM EDT Resulting Agency Comment Spec In Lab Gretchen Yoon MD CHEMISTRY ORDERABLES Performing Organization Address City/State/Z[place] [address] EKG 12 Lead (11/29/2019 3:58 PM EDT) [facility] gist Method Time Signature Ventricular rate 73 BPM MUSE SYSTEM Atrial Rate 73 BPM MUSE SYSTEM P-R Interval 152 ms MUSE SYSTEM QRS Duration 84 ms MUSE SYSTEM Q-T Interval 404 ms MUSE SYSTEM QTC Calculated 445 ms MUSE SYSTEM (Bezet) Calculated P [place] 50 degrees MUSE SYSTEM Calculated R [place] -4 degrees MUSE SYSTEM Calculated T [place] 19 degrees MUSE SYSTEM INTERPRETATION Sinus rhythm [...] CLINICAL HISTORY: stemi (as entered by o [facility] provider in the order requisition) TECHNIQUE: [...] lung apex is excluded from the imaged [id number]. IMPRESSION: 1. ??New right internal jugular pulmonar [...] lung apex is excluded from the imaged [id number]. Procedure Note Estefani Harris MD - 11/29/2019Formattin [...] lung apex is excluded from the imaged [id number]. IMPRESSION 1. New right internal jugular pulmonary [...] (ABNORMAL) Differential, Automated (11/29/2019 2:32 PM EDT) [facility] Method Time Signature Neutrophils % 83.8 % [facility] LABORATORY Neutr Abs (ANC) 12.12 (H) 1.70 - [facility] 6.10 [facility] x10(3)/[facility] LABORATORY Lymphocytes % 9.1 % [facility] LABORATORY Lymphocytes Abs 1.3 0.9 - 3.2 [facility] x10(3)/[facility] LABORATORY Monocytes % 6.2 % [facility] LABORATORY Monocyte Abs 0.9 0.3 - 0.9 [facility] x10(3)/[facility] LABORATORY Eosinophils % 0.0 % [facility]ORATORY Eosinophils Abs 0.0 0.0 - 0.4 [facility] x10(3)/[facility] LABORATORY Basophils % 0.3 % [facility] LABORATORY Basophils Abs 0.0 0.0 - 0.1 [facility] x10(3)/[facility] LABORATORY Immature [...] Abs 0.08 (H) 0.00 - 0.04 x10(3)/[facility] LABORATORY Specimen Anatomical Collection Method Collection Time Receive d Time (Source) Location / / Volume Laterality Blood specimen 11/29/2019 2:32 PM 020 2:55 (specimen) EDT PM EDT Resulting Agency Comment Spec In Lab Darrell Glasgow MD HEMATOLOGY ORDERABLES Performing Organization Address City/State/Z[place] [address] (ABNORMAL) Hemogram (11/29/2019 2:32 PM EDT) Analysis Performed At Patho logist Time Signature WBC 14.5 (H) 4.0 - 9.5 [facility] x10(3)/[facility] LABORATORY RBC 4.53 (L) 4.58 - [facility] 5.54 [facility] x10(6)/[facility] LABORATORY Hemoglobin 13.1 (L) 13.7 - [facility] 16.5 gm/dL [facility] LABORATORY Hematocrit 40.8 40.5 - [facility] 48.5 % [facility] LABORATORY MCV 90.1 82.9 - [facility] 93.1 [facility] LABORATORY MCH 28.9 27.5 - [facility] 32.1 pg [facility] LABORATORY MCHC 32.1 32.0 - [facility] 35.7 gm/dL [facility] LABORATORY Platelets 184 145 - 357 [facility] x10(3)/[facility] LABORATORY RDWSD 47.8 (H) 36.0 - [facility] OLIVIA 45.0 [facility] LABORATORY RDWCV 14.5 (H) 11.4 - [facility] OLIVIA 13.8 % [facility] LABORATORY MPV 11.9 7.6 - 12.9 [facility] nRBC % Auto 0.0 % [facility] LABORATORY nRBC Abs Auto 0.000 0.000 - [place] OLIVIA 0.000 [facility] x10(3)/[facility] LABORATORY Specimen Anatomical Collection Method Collection Time Receive d Time (Source) Location / / Volume Laterality Blood specimen 11/29/2019 2:32 PM 020 2:55 (specimen) EDT PM EDT Resulting Agency Comment Spec In Lab Darrell Glasgow MD HEMATOLOGY ORDERABLES Performing Organization Address City/State/ZIP Code Phon e Number [address] (ABNORMAL) CK (11/29/2019 2:32 PM EDT) athologist Signature CK, Total 3,282 (H) 0 - 200 [facility] unit/L [facility] LABORATORY Specimen Anatomical Collection Method Collection Time Receive d Time (Source) Location / / Volume Laterality Blood specimen 11/29/2019 2:32 PM 020 2:32 (specimen) EDT PM EDT Resulting Agency Comment Spec In Lab Gretchen Yoon MD CHEMISTRY ORDERABLES Performing Organization Address City/[facility] [place] [address] (ABNORMAL) Troponin (11/29/2019 2:32 PM EDT) athologist Signature Troponin-T 20.33 (H) 0.00 - [place] OLIVIA 0.00 ng/mL [facility] LABORATORY Comment: The 99th percentile for Troponin T is le ss than 0.01 ng/mL, any detectable cTnT concentration using this assay should be considered elevated. According to the third universal definit ion of myocardial infarction the following criteria with a clinical prese ntation consistent with acute myocardial ischemia meets the diagnosis for a myocardial infarction (MA). Detection of a rise and/or fall of [...] additional sample may be indicated. Reference: Third [place] Definition of Myocardial Infarction. Journal of the [place] [employer] 2012;60:1581-98 Specimen Anatomical Collection Method Collection Time Receive d Time (Source) Location / / Volume Laterality Blood specimen 11/29/2019 2:32 PM 020 2:32 (specimen) EDT PM EDT Resulting Agency Comment Spec In Lab Gretchen Yoon MD CHEMISTRY ORDERABLES Performing Organization Address [facility] [place] [address] (ABNORMAL) APTT (11/29/2019 2:32 PM EDT) P athologist Signature PTT 114 25 - 37 [facility] (Critical) [facility] LABORATORY Comment: Critical Result called by [...] Yoon MD HEMATOLOGY ORDERABLES Performing Organization Address [facility] [place] [address] (ABNORMAL) Prothrombin Time (11/29/2019 2:32 PM EDT) P athologist Signature PT 13.5 (H) 9.4 - 12.5 [facility] LABORATORY INR 1.2 [facility] LABORATORY [...] Organization Address City/State/[place] [address] (ABNORMAL) Hepatic Function Panel (11/29/2019 2:32 PM EDT) P athologist Signature Total Protein 6.3 6.1 - 8.0 [facility] gm/dL [facility] LABORATORY Albumin 3.6 3.2 - 5.2 [facility] gm/dL [facility] LABORATORY AST 257 (H) 0 - 39 [facility] LAB[facility]ATORY ALT 50 0 - 55 [facility]ORY Alk Phos 84 40 - 130 [facility]L [facility] LABORATORY Total 0.3 0.2 - 1.3 [facility] Bil[facility] mg/dL [facility] LABORATORY Bili, Direct 0.1 0.0 - 0.3 [facility] mg/dL [facility] LABORATORY Specimen Anatomical Collection Method Collection Time Receive d Time (Source) Location / / Volume Laterality Blood specimen 11/29/2019 2:32 PM 020 2:32 (specimen) EDT PM EDT Resulting Agency Comment Spec In Lab Gretchen Yoon MD CHEMISTRY ORDERABLES Performing Organization Address City/[facility]/[place] [address] (ABNORMAL) pro-Brain Natriuretic Peptide (11/29/2019 2:32 PM EDT) P athologist Signature ProBNP 272 (H) <=125 pg/mL [facility] LABORATORY Specimen Anatomical Collection Method Collection Time Receive d Time (Source) Location / / Volume Laterality Blood specimen 11/29/2019 2:32 PM 020 2:32 (specimen) EDT PM EDT Resulting Agency Comment Spec In Lab Gretchen Yoon MD CHEMISTRY ORDERABLES Performing Organization Address City/[facility]/ZIP Code Phon e Number [place] Magnesium (11/29/2019 2:32 PM EDT) athologist Signature Magnesium 0.76 0.69 - 1.07 [facility] mmol/L [facility] LABORATORY Specimen Anatomical Collection Method Collection Time Receive d Time (Source) Location / / Volume Laterality Blood specimen 11/29/2019 2:32 PM 020 2:32 (specimen) EDT PM EDT Resulting Agency Comment Spec In Lab Gretchen Yoon MD CHEMISTRY ORDERABLES Performing Organization Address City/State/ZIP Code Phon e Number [address] (ABNORMAL) Basic Metabolic Panel (non-fasting) (11/29/2019 2:32 PM EDT) athologist Signature Glucose Lvl 149 65 - 199 [facility] mg/dL [facility] LABORATORY Comment: Diabetes: >=200 mg/dL plus symp toms BUN 16 10 - 20 mg/dL [facility] LABORATORY Creatinine 0.94 0.80 - 1.50 mg/dL [facility] LABOR[facility]ORY Sodium 135 135 - 145 [...] Anion Gap 15 5 - 15 mmol/L [facility] LABOR[facility]ORY Calcium 8.0 (L) 8.5 [...] of body mass or the acutely ill. [email or web address]/[facility]ERnkf eGFR 93 >=60 mL/min/1.73 m?? [facility] LAB[facility] Comment: The eGFR was calculated using the CKD-EP I equation. As with all creatinine based estimates of kidney function, eGFR values calculated with the CKD-EPI equation are not accurate in patients wi th acute kidney failure, extremes of body mass or the acutely ill. http://[employer]/[facility]nkf Specimen Anatomical Collection Method Collection Time Receive d Time (Source) Location / / Volume Laterality Blood specimen 11/29/2019 2:32 PM 020 2:32 (specimen) EDT PM EDT Resulting Agency Comment Spec In Lab Gretchen Yoon MD CHEMISTRY ORDERABLES Performing Organization Address City/[facility] [address] EKG 12 Lead (11/29/2019 11:38 AM EDT) [facility] gist Method Time Signature Ventricular rate 60 BPM MUSE SYSTEM Atrial Rate 60 BPM MUSE SYSTEM P-R Interval 140 ms MUSE SYSTEM QRS Duration 86 ms MUSE SYSTEM Q-T Interval 474 ms MUSE SYSTEM QTC Calculated 474 ms MUSE SYSTEM (Bezet) Calculated P [place] 48 degrees MUSE SYSTEM Calculated R [place] 14 degrees MUSE SYSTEM Calculated T [place] 58 degrees MUSE SYSTEM INTERPRETATION Normal sinus [...] Yoon MD ECG ORDERABLES Performing Organization Address City/[facility] Phon e Number MUSE SYSTEM CARDIAC CATHETERIZATION (11/29/2019 11:15 AM EDT) Anatomical Region Laterality Modality Other Specimen (Source) Anatomical Location Collection Method / Collectio n Time Received Time / Laterality Volume Narrative 11/30/2019 1:09 PM EDT ?[facility] ? Cardiac Cathete rization/Intervention Report ? Patient Name: Salinas, Angel Luis H. ? Procedure Date: 11/29/2019 ? A #: [id number] ? Primary Physician: Shaan, Gretchen N ? Case #: [id number] ? File Name: [id number] ? Catheterization Order Number: [id number] ? [facility] ? Final Report [place], [place] ? Patient Name: ? Angel Luis Salinas ? ID#: ?[id number] ? : ?1945 ? Procedure Date: ? November 29, 2019 ? Case #: ? [id number] ? Room: ? 5 ? Case Physician: ? Gretchen Yoon M.D. ?Start: ?09:11 ?Fellow: ? iAdan mckee, M.D. ?Admission: ??11/29/2019 ? Discharge: ??12/08/2019 [...] procedure was Emergent. 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 ?Recommended anti-platelet/anti- thrombotic regimen: ?Continue aspirin 81 mg daily fo r indefinitely. ?Continue clopidogrel 75 mg marco a y for 12 months then stop. ?These recommendations are made at the time of the intervention. Patient ?and provider preferences or a c hanging clinical situation may require ?modification of this regimen. C marvult [facility] Interventional Cardiology for ?questions. ? Conclusions: ?* [...] note might be different from the original. [facility] Cardiac Catheterization/Intervention Re port Patient Name: SalinasAngel Luis Procedure Date: 11/29/2019 A #: [id number] Primary Physician: Gretchen Yoon Case #: [id number] File Name: [id number] Catheterization Order Number: [id number] [facility] Final Report [place], [place] Patient Name: Angel Luis Salinas ID#: [id number] : 1945 Procedure Date: November 29, 2019 Case #: [id number] Room: 5 Case Physician: Gretchen Yoon M.D. art: 09:11 Fellow: Aidan Ward M.D. Admission: 11/29/2019 Discharge: 12/08/2019 Procedures: * Coronary Angiography * Left Heart Catheterization * Coronary Stent Insertion * Coronary Embolic Protection/Thrombect zoe * Arterial Blood Gases Pre Case Status: These procedures were performed on an e mergent basis. History AngelL uis Salinas is a 74 year old man. [...] designated as ASA Class IV. The [facility] clinical frailty scale is 4: Vulnerable. Diagnostic Tests: Electrocardiography: EKG was assessed by ECG. EKG was Abnorm al. EKG showed ST Deviation >= 0.5 mm. Medications Prior to Procedure: Aspirin. Indications for Diagnostic Cath: The priority of the diagnostic procedur e was Emergent. 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 The [facility] indication for the procedure was S [...] this intervention was 10%. The final TI MA flow was 2. Distal 90% Thrombectomy and [...] this intervention was 10%. The final TI MA flow was 2. 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 Recommended anti-platelet/anti-thrombot ic regimen: Continue aspirin 81 mg daily for indefi nitely. Continue clopidogrel 75 mg daily for 12 months then stop. These recommendations are made at the t loyda of the intervention. Patient and provider preferences or a changing clinical situation may require modification of this regimen. Consult [facility] Interventional Cardiology for questions. Conclusions: * Two [...] Signature POC pH 7.33 (L) 7.35 - [facility] 7.45 [facility] LABORATORY POC PCO2 33 (L) 35 - 45 [facility] mmHg [facility] LABORATORY POC PO2 56 (L) 85 - 104 [facility] LABORATORY POC Base Excess -8.0 (L) -3.0 - 3.0 [facility] K mmol/L [facility] LABORATORY POC HCO3 17.4 (L) 20.0 - [facility] 26.0 [facility] mmol/[facility] LABORATORY POC Sodium 137 135 - 145 [facility] mmol/L [facility] LABORATORY POC Potassium 3.6 3.5 - 5.0 [facility] mmol/L [facility] POC Ionized Ca 1.15 1.15 - [facility] 1.33 [facility] POC Hematocrit 37.0 (L) 40.0 - [facility] 51.0 % [facility] LABORATORY POC Calc Hgb 12.6 (L) 13.7 - [facility] 17.5 gm/dL [facility] LABORATORY Comment: The calculation of hemoglobin f rom hematocrit assumes a normal MCHC. POC Bgas Loc CC LAB [facility] LABORATORY Specimen Anatomical Collection Method Collection Time Receive d Time (Source) Location / / Volume Laterality Blood specimen 11/29/2019 9:17 AM 020 7:35 (specimen) EDT AM EDT Gretchen Yoon MD CHEMISTRY ORDERABLES Performing Organization Address City/State/ZIP [place] [address] EKG 12 Lead (11/29/2019 9:01 AM EDT) Component Value Ref Range Test Analysis Performed Pathologis t Method Time At Signature Ventricular rate 80 BPM MUSE SYSTEM Atrial Rate 79 BPM MUSE SYSTEM QRS Duration 94 ms MUSE SYSTEM Q-T Interval 436 ms MUSE SYSTEM QTC Calculated 502 ms MUSE SYSTEM (Bezet) Calculated R [place] 54 degrees MUSE SYSTEM Calculated T [place] 80 degrees MUSE SYSTEM INTERPRETATION Normal sinus rhythm MUSE SYSTEM Inferior infarct , possibly acute Prolonged QT * ACUTE MA ?? 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
Administer for serum potassium (mMol/L) of 3.9 - 4 See instructions for Potassium Protocol in online policies.
Routine Or potassium chloride ER (K-Dur/Klor-Con) tablet 40 mEqJump to med 40 mEq, Oral, EVERY 4 HOURS PRN, Startin g [place] 11/30/19 at 2016, Until Sun12/08/19 at 1811, hypokalemia
Administer for serum potassium (mMol/L) of 3.6 - 3.8 See instructions for Potassium Protocol in online policies.
Routine documented in this encounter Care Teams Refrigerating Technician Relationship Specialty Start Date End Date France Lam MD PCP - General 05/02/13 02/04/20 [address] [place] [address] documented as of this encounter
--- OUTSIDE RECORDS SUMMARY | 2022-05-02 11:23 | XMS_ITS | Encounter Summary ---
:1945 Author Organization [facility] [place] [address] Care Team Providers Name Role Phone France Lam MD Primary Care Provider Encounter Details Date Type Department Care Team Description 05/13/2013 Ancillary Vascular Surgery at [facility] (Primary Appointment [facility] Cesilia Sebastian, [place] Dx) [place] [id number] Social History Tobacco Use Types Packs/Day Years [...] Value Ref Test Analysis Performed At [facility] gist Range Method Time Signature VB Text VASCUBASE Report Department: Vascular Surgery Lab Patient: [id number] (ANGEL LUIS HI) CPT Code: 37281 ICD-9: 440.21 Referring Physician: FRANCE LAM Indication: [...] Posterior Tibial (Ankle) Art derrell ??84 ?0.64 ??Iroquois- Biphasic ?? Interpretation: RIGHT: ??Mild lower extremity [...] limb documented in this encounter Care Teams Transportation Agent Relationship Specialty Start Date End Date France Lam MD PCP - General 05/02/13 02/04/20 [address] [place] [address] documented as of this encounter
--- OUTSIDE RECORDS SUMMARY | 2022-05-02 11:23 | XMS_ITS | Encounter Summary ---
:1945 [place] [address] Care Team Providers Name Role Phone France Lam MD Primary Care Provider Encounter Details Date Type Department Care Team Description 11/29/2019 Telephone Cardiovascular [facility] Silvio piedra MD [facility] Devin coh[place] [address] [place] [address] [phone] (Wo rk) Social History Tobacco Use Types [...] 50s EKG: Inferior STEMI Silvio Real MD Professor Of Mathematics PGY-4 11/29/2019 documented in this encounter Plan of Treatment Not on filedocumented as of this encounter Visit Diagnoses Not on filedocumented in this encounter Care Teams Nursing Education Specialist Relationship Specialty Start Date End Date France Lam MD PCP - General 05/02/13 02/04/20 [address] [place] [address] documented as of this encounter
--- OUTSIDE RECORDS SUMMARY | 2022-05-02 11:23 | XMS_ITS | Encounter Summary ---
:1945 Author Organization [place] [address] Care Team Providers Name Role Phone France Lam MD Primary Care Provider Encounter Details Date Type Department Care Team Description 05/13/2013 Orders Only Vascular Surgery at [facility] (xi luis [facility] hair worker disease) [facility] (Primary Dx) [place] [address] Social History Tobacco Use Types Packs/Day [...] unspecified documented in this encounter Care Teams Cold Header Relationship Specialty Start Date End Date France Lam MD PCP - General 05/02/13 02/04/20 [address] [place] [address] documented as of this encounter
[2022-05-02 11:43] VITALS: BP 110/62; PULSE 48
[2022-05-04 11:00] VITALS: BP 120/63; PULSE 47; O2SAT 94
--- OUTSIDE RECORDS SUMMARY | 2022-05-04 11:01 | XMS_ITS | Encounter Summary ---
:1945 Author Organization [facility] Address [address] [place] [address] Care Team Providers Name Role Phone Jennifer Gomez ANGIOGRAPHY NURSE Primary Care Provider Encounter Details Date Type Department Care Team Description 02/15/2022 Lab Requisition [facility] Outr Resulting Lab, Pathology & Laboratory Provider [facility] [address], [place] [address] Social History Tobacco Use Types Packs/Day Years [...] Free 9.3 (H) 2.8 - 5.3 pg/mL [facility] Specimen Blood - Venous blood (substance) Performing Organization Address City/State/ZIP Code Phon e Number [facility] [address] [place] [address] SERVICES documented in this encounter Visit Diagnoses Not on filedocumented in this encounter Care Teams 3Rd Grade Teacher Relationship Specialty Start Date End Date Jennifer Gomez, ANGIOGRAPHY NURSE PCP - General 05/10/15 [facility] [address] [place], [place] [id number] documented as of this encounter
--- OUTSIDE RECORDS SUMMARY | 2022-05-04 11:01 | XMS_ITS | Continuity of Care Document ---
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 Z23 Encounter for [place] immunizationwith CBO C Provider Comments: Encounter for Immunization Diagnosis: ICD-10-CM Active Diagnosis ST. H90.3 Sensorineural [facility] hearing loss, CBOC bilateralwith Provider Comments: Asymmetrical sensorineural hearing loss (SNOMED CT [id number]) Diagnosis: ICD-10-CM Active Diagnosis ST. I25.10 Athscl heart [facility] disease of nondalton CB OC coronary artery w/o ang pctrswith Provider Comments: Atherosclerotic Heart Disease of [place] Coronary Artery without Angina Pectoris Medications Combined list of outpatient medications from Department of Defense and Veterans Affairs facilities. Medications provided include 1) outpatient medications from the last 15 months, and 2) patient-reported medications. Medication Details Route Status Patient Prescription Prescription Last Ordering Order Source Instructions Expires Number Dispense Provider Date Date AMIODARONE TAKE ONE ORAL ACTIVE 02/14/2023 [id number] JORGE A LOZA HCL TABLET 2 N 2021 [place] (PACERONE) BY MOUTH [place] 200MG TAB EVERY [facility] DAY AFTER ONE MONTH OF TWICE DAILY DOSING THROUGH 02/26/22 APIXABAN TAKE ONE ORAL ACTIVE 2023 [id number] WILLIE LOZA 01/20/ WHITE 5MG TAB TABLET 2 N 2021 [place] BY MOUTH [place] TWICE A [facility] DAY TO HELP PREVENT BLOOD CLOTS (ANTICOA GULATION CCNRX) APIXABAN TAKE ONE ORAL 12/21/2021 [id number] GIANGR ECO 12/30/ WHITE 5MG TAB TABLET [...] DAY FUROSEMIDE TAKE ONE ORAL ACTIVE 12/17/2022 [id number] JORGE A LOZA 12/21/ WHITE 20MG TAB TABLET 2 N 2021 [place] BY MOUTH [place] EVERY [facility] OTHER DAY TO REMOVE FLUID/CO NTROL BLOOD PRESSURE FUROSEMIDE TAKE ONE ORAL 11/12/2021 [id number] SJ PATTON,M 11/12/ ST. 20MG TAB TABLET 2 ICHAEL 2020 [place] BY MOUTH RY CBOC EVERY OTHER DAY TO REMOVE FLUID/CO NTROL BLOOD PRESSURE LISINOPRIL TAKE ONE ORAL ACTIVE 12/17/2022 [id number] JORGE A LOZA 12/21/ WHITE 5MG TAB TABLET 2 N 2021 [place] BY MOUTH [place] EVERY [facility] DAY TO CONTROL BLOOD PRESSURE LISINOPRIL TAKE ONE ORAL DISCONT 06/08/2022 [id number] JORGE A LOZA 06/15/ WHITE 5MG TAB TABLET INUED 2 N 2020 [place] BY MOUTH [place] EVERY [facility] DAY TO CONTROL BLOOD PRESSURE LISINOPRIL TAKE ONE ORAL 06/03/2021 [id number] STANL EY,M 06/08/ ST. 5MG TAB TABLET 1 ICHAEL 2019 [place] BY MOUTH RY CBOC EVERY DAY TO CONTROL BLOOD PRESSURE METOPROLOL TAKE ONE ORAL ACTIVE 02/14/2023 [id number] JORGE A LOZA 02/15/ WHITE SUCCINATE TABLET 2 N 2021 RIVER 25MG TAB,SA BY MOUTH [place] EVERY [facility] DAY FOR BLOOD PRESSURE /HEART METOPROLOL TAKE ONE ORAL DISCONT 02/23/2022 [id number] Mery BLEVINS 02/28/ ST. SUCCINATE TABLET INUED 2 ICHAEL 2020 [place] 25MG TAB,SA BY MOUTH RY CB OC EVERY DAY FOR BLOOD PRESSURE /HEART NITROGLYCER TAKE ONE SUBLIN 02/23/2022 [id number] Mery LR 02/28/ ST. IN 0.4MG TABLET GUAL 1 2020 [place] TAB,SUBLING UNDER RY CBOC UAL THE TONGUE EVERY 5 MINUTES NEEDED FOR CHEST PAIN (ANGINA) MAY REPEAT FOR THREE DOSES (IF NO RELIEF,S TUOLUMNE MEDICAL ATTENTIO N PROMPTLY ) TIOTROPIUM INHALE DISCONT 07/16/2021 [id number] Tamra LOZA 07/21/ WHITE 18MCG ONE INUED 1 N 2020 [place] CAP,INHL,90 CAPSULE [place] IN [facility] INHALER BY MOUTH EVERY DAY FOR BREATHIN [...] atus Comments Source Given By Number Code Manager Editorial ZOSTER [address] RECOMBINANT 2020 ed [...] result by 1.210 Tests performed on Gonsalez SolveBoard (405) SN:[id number] [place] eGFR E] IN SERUM Ordering Pr ovider: MIL[place] UREÑA [facility] PANEL OR PLASMA Report Releas ed Date/Time: Feb 24, 2021 11:18 AM Reporting Lab: [place] [facility] [address] [facility] [address] Performing Lab: [place] [facility] [address] [facility] [address] CREATININ GLOMERULAR 44 60 04/28 L Specimen Ty pe: PLASMA WHITE E WITH FILTRATION /2020 Comment: For eGFR: Race unknown, if multiply result by 1.210 Tests performed on G[employer]alez SolveBoard (405) SN:[id number] [place] eGFR RATE/1.73 Ordering Prov ider: [facility] [facility] PANEL SQ Report Released Date/Time: Feb 24, 2021 11:18 AM M.PREDICTED Reporting L ab: [place] [facility] [VOLUME [address] [place] [facility] [place] [address] RATE/AREA] Performing L ab: [place] [facility] IN SERUM OR [address] [place] [facility] [place] [address] PLASMA BY CREATININE- BASED FORMULA (MDRD) CBC NO LEUKOCYTES 5.8 4.5 - 11.0 04/28 Specimen T ype: BLOOD WHITE DIFF [#/VOLUME] /2020 No comment en tered. [place] IN BLOOD BY Ordering Pr ovider: [facility] AUTOMATED Report Rele ed Date/Time: Feb 24, 2021 11:18 AM COUNT Reporting Lab: [place] [facility] [address] [place] [facility] [place] [address] Performing Lab: [place] [facility] [address] [place] [facility] [place] [address] CBC NO ERYTHROCYTE 4.61 4.23 - 04/28 Specimen Typ e: BLOOD WHITE DIFF S 5.66 /2020 No comment enter ed. [place] [#/VOLUME] Ordering Pro vider: [place] [facility] IN BLOOD BY Report Rele ased Date/Time: Feb 24, 2021 11:18 AM AUTOMATED Reporting Lab : [place] [facility] COUNT [address] [facility] [place] [address] Performing Lab: [place] [facility] [address] [facility] [place] [address] CBC NO HEMOGLOBIN 13.9 12.8 - 17 04/28 Specimen Ty pe: BLOOD WHITE DIFF [MASS/VOLUM /2020 No comment e ntered. [place] E] IN BLOOD Ordering Pr ovider: MILTON UREÑAOC Report Released Date/Time: Feb 24, 2021 11:18 AM Reporting Lab: [place] [facility] [address] [facility] [place] [address] Performing Lab: [place] [facility] [address] [place] [facility] [place] [address] CBC NO HEMATOCRIT 43.6 39.2 - 04/28 Specimen Type : BLOOD WHITE DIFF [VOLUME 50.4 No comment enter ed. [place] FRACTION] Ordering Prov ider: [place] UREÑA [facility] OF BLOOD BY Report Rele ased Date/Time: Feb 24, 2021 11:18 AM AUTOMATED Reporting Lab : [place] [facility] COUNT [address] [facility] [place] [address] Performing Lab: [place] [facility] [address] [place] [facility] [place] [address] CBC NO MCV 94.6 82 - 99 04/28 Specimen Type: B LOOD WHITE DIFF [ENTITIC /2020 No comment ente red. [place] VOLUME] BY Ordering Pro vider: MILTON UREÑAOC AUTOMATED Report Releas ed Date/Time: Feb 24, 2021 11:18 AM COUNT Reporting Lab: [place] [facility] [address] [facility] [place] [address] Performing Lab: [place] [facility] [address] [facility] [place] [address] CBC NO MCH 30.2 26.2 - 04/28 Specimen Type: B LOOD WHITE DIFF [ENTITIC 32.6 /2020 No comment ente red. [place] MASS] BY Ordering Provi adrian: MILTON UREÑA AUTOMATED Report Releas ed Date/Time: Feb 24, 2021 11:18 AM COUNT Reporting Lab: [place] [facility] [address] [place] [facility] [place] [address] Performing Lab: [place] [facility] [address] [place] [facility] [place] [address] CBC NO MCHC 31.9 30.8 - 04/28 Specimen Type: B LOOD WHITE DIFF [MASS/VOLUM 35.1 /2020 No comment e ntered. [place] E] BY Ordering Provid er: MILTON UREÑA AUTOMATED Report Releas ed Date/Time: Feb 24, 2021 11:18 AM COUNT Reporting Lab: [place] [facility] [address] [place] [facility] [place] [address] Performing Lab: [place] [facility] [address] [place] [facility] [place] [address] CBC NO PLATELETS 141 140 - 360 04/28 Specimen Typ e: BLOOD WHITE DIFF [#/VOLUME] /2020 No comment en tered. [place] IN BLOOD BY Ordering Pr ovider: MILTON UREÑA AUTOMATED Report Releas ed Date/Time: Feb 24, 2021 11:18 AM COUNT Reporting Lab: [place] [facility] [address] [place] [facility] [place] [address] Performing Lab: [place] [facility] [address] [place] [facility] [place] [address] CBC NO PLATELET 12.1 9.2 - 12.4 04/28 Specimen Typ e: BLOOD WHITE DIFF MEAN VOLUME /2020 No comment e ntered. [place] [ENTITIC Ordering Provi adrian: MILTON UREÑAOC VOLUME] IN Report Relea sed Date/Time: Feb 24, 2021 11:18 AM BLOOD BY Reporting Lab: [place] [facility] AUTOMATED [address] [place] [facility] [place] [address] COUNT Performing Lab: [place] [facility] [address] [place] [facility] [place] [address] CBC NO ERYTHROCYTE 15.0 12.0 - 04/28 Specimen Typ e: BLOOD WHITE DIFF DISTRIBUTIO 16.0 /2020 No comment e ntered. [place] N WIDTH Ordering Provid er: MILTON UREÑAOC [RATIO] BY Report Relea sed Date/Time: Feb 24, 2021 11:18 AM AUTOMATED Reporting Lab : [place] [facility] COUNT [address] [place] [facility] [place] [address] Performing Lab: [place] [facility] [address] [place] [facility] [place] [address] CREATININ CREATININE 1.37 0.5 - 1.5 02/22 Specimen Type: PLASMA WHITE E WITH [MASS/VOLUM /2020 Comment: Fo r eGFR: Race unknown, if multiply result by 1.210 Tests performed on Gonsalez Director Of Cardiology (405) SN:[id number] [place] eGFR E] IN SERUM Ordering Pr ovider: MIL[place] UREÑ[facility] PANEL OR PLASMA Report Releas ed Date/Time: Dec 20, 2020 02:24 PM Reporting Lab: [place] [facility] [address] [place] [facility] [place] [address] Performing Lab: [place] [facility] [address] [place] [facility] [place] [address] CREATININ GLOMERULAR 51 60 02/22 L Specimen Ty pe: PLASMA WHITE E WITH FILTRATION /2020 Comment: For eGFR: Race unknown, if multiply result by 1.210 Tests performed on G[employer]alez SolveBoard (405) SN:[id number] [place] eGFR RATE/1.73 Ordering Prov ider: MILTON UREÑ[facility] PANEL SQ Report Released Date/Time: Dec 20, 2020 02:24 PM M.PREDICTED Reporting L ab: [place] [facility] [VOLUME [address] [place] [facility] [place] [address] RATE/AREA] Performing L ab: [place] [facility] IN SERUM OR [address] [place] [facility] [place] [address] PLASMA BY CREATININE- BASED FORMULA (MDRD) CBC NO LEUKOCYTES 6.8 4.5 - 11.0 02/22 Specimen T ype: BLOOD WHITE DIFF [#/VOLUME] /2020 No comment en tered. [place] IN BLOOD BY Ordering Pr ovider: [facility] AUTOMATED Report Releas ed Date/Time: Dec 20, 2020 02:24 PM COUNT Reporting Lab: [place] [facility] [address] [facility] [address] Performing Lab: [place] [facility] [address] [place] [facility] [place] [address] CBC NO ERYTHROCYTE 5.03 4.23 - 08 Specimen Typ e: BLOOD WHITE DIFF S 5.66 /2020 No comment enter ed. [place] [#/VOLUME] Ordering Pro vider: MILTON UREÑ[facility] IN BLOOD BY Report Rele ased Date/Time: Dec 20, 2020 02:24 PM AUTOMATED Reporting Lab : [place] [facility] COUNT [address] [facility] [address] Performing Lab: [place] [facility] [address] [facility] [address] CBC NO HEMOGLOBIN 14.9 12.8 - 17 02/22 Specimen Ty pe: BLOOD WHITE DIFF [MASS/VOLUM /2020 No comment e ntered. [place] E] IN BLOOD Ordering Pr ovider: MILTON UREÑA Report Released Date/Time: Dec 20, 2020 02:24 PM Reporting Lab: [place] [facility] [address] [place] [facility] [place] [address] Performing Lab: [place] [facility] [address] [place] [facility] [place] [address] CBC NO HEMATOCRIT 46.7 39.2 - 02/22 Specimen Type : BLOOD WHITE DIFF [VOLUME 50.4 No comment enter ed. [place] FRACTION] Ordering Prov ider: MILTON UREÑAOC OF BLOOD BY Report Rele ased Date/Time: Dec 20, 2020 02:24 PM AUTOMATED Reporting Lab : [place] [facility] COUNT [address] [place] [facility] [place] [address] Performing Lab: [place] [facility] [address] [place] [facility] [place] [address] CBC NO MCV 92.8 82 - 99 02/22 Specimen Type: B LOOD WHITE DIFF [ENTITIC /2020 No comment ente red. [place] VOLUME] BY Ordering Pro vider: MILTON UREÑAOC AUTOMATED Report Releas ed Date/Time: Dec 20, 2020 02:24 PM COUNT Reporting Lab: [place] [facility] [address] [facility] [address] Performing Lab: [place] [facility] [address] [facility] [address] CBC NO MCH 29.6 26.2 - 08 Specimen Type: B LOOD WHITE DIFF [ENTITIC 32.6 /2020 No comment ente red. [place] MASS] BY Ordering Provi adrian: MILTON UREÑA AUTOMATED Report Releas ed Date/Time: Dec 20, 2020 02:24 PM COUNT Reporting Lab: [place] [facility] [address] [facility] [address] Performing Lab: [place] [facility] [address] [facility] [address] CBC NO MCHC 31.9 30.8 - 02/22 Specimen Type: B LOOD WHITE DIFF [MASS/VOLUM 35.1 /2020 No comment e ntered. [place] E] BY Ordering Provid er: MILTON UREÑA AUTOMATED Report Releas ed Date/Time: Dec 20, 2020 02:24 PM COUNT Reporting Lab: [place] [facility] [address] [facility] [address] Performing Lab: [place] [facility] [address] [facility] [address] CBC NO PLATELETS 159 140 - 360 08 Specimen Typ e: BLOOD WHITE DIFF [#/VOLUME] /2020 No comment en tered. [place] IN BLOOD BY Ordering Pr ovider: MILTON UREÑA AUTOMATED Report Releas ed Date/Time: Dec 20, 2020 02:24 PM COUNT Reporting Lab: [place] [facility] [address] [facility] [address] Performing Lab : [place] [facility] [address] [facility] [address] CBC NO PLATELET 13.0 9.2 - 12.4 08/24 H Specimen Typ e: BLOOD WHITE DIFF MEAN VOLUME /2020 No comment e ntered. [place] [ENTITIC Ordering Provi adrian: MILTON UREÑA VOLUME] IN Report Relea sed Date/Time: Dec 20, 2020 02:24 PM BLOOD BY Reporting Lab: [facility]OMATED [address] [facility] [address] COUNT Performing [facility] [address] [facility] [address] CBC NO ERYTHROCYTE 14.6 12.0 - 0824 Specimen Typ e: BLOOD WHITE DIFF DISTRIBUTIO 16.0 No comment e ntered. [place] N WIDTH Ordering Provid er: [facility] [RATIO] BY Report Relea sed Date/Time: Dec 20, 2020 02:24 PM AUTOMATED Reporting Lab : [facility] COUNT [address] [facility] [address] Performing Lab: [facility] [address] [facility] [address] P4 UREA 20 7 - 25 08 Specimen Type: P LASMA ST. GLU,BUN,C NITROGEN /2020 Comment: For eGFR: Race unknown, if multiply result by 1.210 Tests performed on G[employer]alez SolveBoard (405) SN:[id number] IVORY BECKETT [MASS/VOLUM Ordering Provider: GRETCHEN PEREZ CA E] IN SERUM Report Rele ased Date/Time: Feb 22, 2021 10:13 AM OR PLASMA Reporting Lab : [facility] [address] [facility] [address] Per[facility] Lab: [facility] [address] [facility] [address] P4 SODIUM 133 135 - 145 08/24 L Specimen Type: PLASMA ST. GLU,BUN,C [MOLES/VOLU /2020 Comment: For eGFR: Race unknown, if multiply result by 1.210 Tests performed on G[employer]alez SolveBoard (405) SN:[id number] IVORY BECKETT ME] IN Ordering Prov ider: GRETCHEN PEREZ CA SERUM OR Report Release d Date/Time: Feb 22, 2021 10:13 AM PLASMA Reporting Lab: [facility] [address] [facility] [address] Performing Lab[facility] [address] [facility] [address] P4 POTASSIUM 4.5 3.5 - 5.0 02/22 Specimen Typ e: PLASMA ST. GLU,BUN,C [MOLES/VOLU /2020 Comment: For eGFR: Race unknown, if multiply result by 1.210 Tests performed on G[employer]alez SolveBoard (405) SN:[id number] IVORY BECKETT RI] IN Ordering Prov ider: GRETCHEN PEREZ CA SERUM OR Report Release d Date/Time: Feb 22, 2021 10:13 AM PLASMA Reporting Lab: [facility] [address] [facility] [place] [address] Performing Lab: [facility] [address] [place] [facility] [place] [address] P4 CHLORIDE 102 100 - 110 02/22 Specimen Type : PLASMA ST. GLU,BUN,C [MOLES/VOLU /2020 Comment: For eGFR: Race unknown, if multiply result by 1.210 Tests performed on G[employer]alez SolveBoard (405) SN:[id number] IVORY BECKETT RI] IN Ordering Prov ider: GRETCHEN PEREZ CA SERUM OR Report Release d Date/Time: Feb 22, 2021 10:13 AM PLASMA Reporting Lab: [facility] [address] [facility] [place] [address] Performing Lab: [facility] [address] [facility] [place] [address] P4 CARBON 21 20 - 30 02/22 Specimen Type: P LASMA ST. GLU,BUN,C DIOXIDE, /2020 Comment: For eGFR: Race unknown, if multiply result by 1.210 Tests performed on Gonsalez SolveBoard (405) SN:[id number] IVORY BECKETT [facility] Ordering Prov ider: GRETCHEN PEREZ S,CA [MOLES/VOLU Report Rele ased Date/Time: Feb 22, 2021 10:13 AM RI] IN Reporting Lab: [facility] SERUM OR [address] [facility] [place] [place] [address] PLASMA Performing Lab: [facility] [address] [place] [facility] [place] [address] P4 ANION GAP 10 4 - 16 02/22 Specimen Type: PLASMA ST. GLU,BUN,C IN SERUM OR /2020 Comment: For eGFR: Race unknown, if multiply result by 1.210 Tests performed on Gonsalez Director Of Cardiology (405) SN:[id number] MARCELA NYELYTE PLASMA Ordering Prov ider: GRETCHEN PEREZ CA Report Released Date/Time: Feb 22, 2021 10:13 AM Reporting Lab: [facility] [address] [facility] [address] Performing Lab: [facility] [address] [facility] [address] P4 GLUCOSE 106 65 - 100 08/24 H Specimen Type: PLASMA ST. GLU,BUN,C [MASS/VOLUM /2020 Comment: For eGFR: Race unknown, if multiply result by 1.210 Tests performed on Gonsalez Director Of Cardiology (405) SN:[id number] MARCELA LOPEZATLYTE E] IN SERUM Ordering Provider: GRETCHEN PEREZ CA OR PLASMA Report Releas ed Date/Time: Feb 22, 2021 10:13 AM Reporting Lab: [facility] [address] [facility] [address] Performing Lab: [facility] [address] [facility] [address] P4 CREATININE 1.37 0.5 - 1.5 02/22 Specimen Ty pe: PLASMA ST. GLU,BUN,C [MASS/VOLUM /2020 Comment: For eGFR: Race unknown, if multiply result by 1.210 Tests performed on Gonsalez Director Of Cardiology (405) SN:[id number] MARCELA NYELYTE E] IN SERUM Ordering Provider: GRETCHEN PEREZ CA OR PLASMA Report Releas ed Date/Time: Feb 22, 2021 10:13 AM Reporting Lab: [facility] [address] [facility] [address] Performing Lab: [facility] [address] [facility] [address] P4 CALCIUM 9.6 8.5 - 10.5 02/22 Specimen Type : PLASMA ST. GLU,BUN,C [MASS/VOLUM /2020 Comment: For eGFR: Race unknown, if multiply result by 1.210 Tests performed on Gonsalez Director Of Cardiology (405) SN:[id number] MARCELA NYELYTE E] IN SERUM Ordering Provider: ANA,GRETCHEN CBOC S,CA OR PLASMA Report Releas ed Date/Time: Feb 22, 2021 10:13 AM Reporting Lab: [facility] [address] [facility] [address] Performing Lab: [place] [facility] [address] [facility] [address] P4 GLOMERULAR 51 60 02/22 L Specimen Type : PLASMA ST. GLU,BUN,C FILTRATION /2020 Comment: F or eGFR: Race unknown, if multiply result by 1.210 Tests performed on G[employer]alez SolveBoard (405) SN:[id number] MARCELA REAT,LYTE RATE/1.73 Ordering Pr ovider: GRETCHEN PEREZ CBOC S,CA SQ Report Released Date/Time: Feb 22, 2021 10:13 AM M.PREDICTED Reporting L ab: [place] [facility] [VOLUME [address] [facility] [address] RATE/AREA] Performing L ab: [facility] IN SERUM OR [address] [facility] [address] PLASMA BY CREATININE- BASED FORMULA (MDRD) LIVER PROTEIN 8.0 6.0 - 8.5 02/22 Specimen Type: PLASMA ST. PROFILE [MASS/VOLUM /2020 Comment: Fo r eGFR: Race unknown, if multiply result by 1.210 Tests performed on [email or web address] (405) SN:[id number] MARCELA Zhao] IN SERUM Ordering Pr ovider: GRETCHEN PEREZ CBOC OR PLASMA Report Releas ed Date/Time: Feb 22, 2021 10:13 AM Reporting Lab: [facility] [address] [facility] [address] Performing Lab: [facility] [facility] [address] [facility] [address] LIVER ALBUMIN 4.0 3.2 - 5.0 02/22 Specimen Type: PLASMA ST. PROFILE [MASS/VOLUM /2020 Comment: Fo r eGFR: Race unknown, if multiply result by 1.210 Tests performed on [email or web address] (405) SN:[id number] MARCELA E] IN SERUM Ordering Pr ovider: GRETCHEN PEREZ OR PLASMA Report Releas ed Date/Time: Feb 22, 2021 10:13 AM Reporting Lab: [facility] [address] [facility] [address] Performing Lab: [facility] [address] [place] [facility] [place] [address] LIVER BILIRUBIN.T 0.6 0.2 - 1.2 02/22 Specimen T ype: PLASMA ST. PROFILE OTAL /2020 Comment: For eG FR: Race unknown, if multiply result by 1.210 Tests performed on [employer] SolveBoard (405) SN:[id number] [facility] [MASS/VOLUM Ordering Pr ovider: GRETCHEN PEREZ E] IN SERUM Report Rele ased Date/Time: Feb 22, 2021 10:13 AM OR PLASMA Reporting Lab : [facility] [address] [facility] [address] Performing Lab: [facility] [address] [facility] [address] LIVER ALKALINE 75 40 - 150 02/22 Specimen Type: PLASMA ST. PROFILE PHOSPHATASE /2020 Comment: Fo r eGFR: Race unknown, if multiply result by 1.210 Tests performed on G[employer] SolveBoard (405) SN:[id number] [facility] [ENZYMATIC Ordering Pro vider: GRETCHEN PEREZ ACTIVITY/VO Report Rele ased Date/Time: Feb 22, 2021 10:13 AM LUME] IN Reporting Lab: [facility] SER[facility] OR [address] [facility] [address] PLASMA Performing Lab: [facility] [address] [place] [facility] [place] [address] LIVER ALANINE 16 7 - 52 02/22 Specimen Type: P LASMA ST. PROFILE AMINOTRANSF Comment: Fo r eGFR: Race unknown, if multiply result by 1.210 Tests performed on [employer] SolveBoard (405) SN:[id number] [facility] ERASE Ordering Provid er: GRETCHEN PEREZ [ENZYMATIC Report Relea sed Date/Time: Feb 22, 2021 10:13 AM ACTIVITY/VO Reporting L ab: [facility] LUME] IN [address] [facility] [address] SERUM OR Performing Lab : [facility] [address] [place] [facility] [place] [address] LIVER ASPARTATE 17 5 - 34 02/22 Specimen Type: PLASMA ST. PROFILE AMINOTRANSF Comment: Fo r eGFR: Race unknown, if multiply result by 1.210 Tests performed on Gonsalez Director Of Cardiology (405) SN:[id number] [facility] ERASE Ordering Provid er: GRETCHEN PEREZ [ENZYMATIC Report Relea sed Date/Time: Feb 22, 2021 10:13 AM ACTIVITY/VO Reporting L ab: [facility] LU[facility] IN [address] [facility] [address] SERUM OR Performing Lab : [facility] PLASMA [address] [facility] [address] LIPOPROTE CHOLESTEROL 361 0 - 199 08/24 H Specimen T ype: PLASMA ST. IN [MASS/VOLUM /2020 Comment: Fo r eGFR: Race unknown, if multiply result by 1.210 Tests performed on Gonsalez Director Of Cardiology (405) SN:[id number] [facility] CHOLESTER E] IN SERUM Ordering Provider: GRETCHEN PEREZ OL FRACT. OR PLASMA Report Rele ased Date/Time: Feb 22, 2021 10:13 AM PANEL Reporting [facility]: [facility] [address] [facility] [address] Performing Lab: [facility] [address] [facility] [address] LIPOPROTE TRIGLYCERID 170 0 - 149 08/24 H Specimen T ype: PLASMA ST. IN E Comment: For eG FR: Race unknown, if multiply result by 1.210 Tests performed on Gonsalez [employer] (405) SN:[id number] [facility] CHOLESTER [MASS/VOLUM Ordering Provider: GRETCHEN PEREZ OL FRACT. E] IN SERUM Report Re leased Date/Time: Feb 22, 2021 10:13 AM PANEL OR PLASMA Reporting Lab : [facility] [address] [facility] [address] Performing Lab: [facility] [address] [facility] [address] LIPOPROTE CHOLESTEROL 46 40 08/24 Specimen T ype: PLASMA ST. IN IN HDL /2020 Comment: For eG FR: Race unknown, if multiply result by 1.210 Tests performed on Gonsalez [employer] (405) SN:[id number] [facility] CHOLESTER [MASS/VOLUM Ordering Provider: GRETCHEN PEREZ OL FRACT. E] IN SERUM Report Re leased Date/Time: Feb 22, 2021 10:13 AM PANEL OR PLASMA Reporting Lab : [facility] [address] [facility] [address] Performing Lab: [facility] [address] [facility] [address] LIPOPROTE CHOLESTEROL 281 0 - 129 08/24 H Specimen T ype: PLASMA ST. IN IN LDL /2020 Comment: For eG FR: Race unknown, if multiply result by 1.210 Tests performed on Gonsalez Director Of Cardiology (405) SN:[id number] MARCELA CHOLESTER [MASS/VOLUM Ordering Provider: GRETCHEN PEREZ OL FRACT. E] IN SERUM Report Re leased Date/Time: Feb 22, 2021 10:13 AM PANEL OR PLASMA Reporting Lab : [facility] [address] [facility] [address] CALCULATION Performing Lab: [facility] [address] [facility] [address] VITAMIN COBALAMIN 312 200 - 900 08/24 Specimen Typ e: SERUM ST. B-12 (VITAMIN /2020 Comment: Tests performed on Gonsalez Director Of Cardiology (405) SN:[id number] MARCELA B12) Ordering Provid er: GRETCHEN PEREZ [MASS/VOLUM Report Rele ased Date/Time: Feb 22, 2021 10:13 AM E] IN SERUM Reporting L ab: [facility] OR PLASMA [address] [facility] [address] Performing Lab: [facility] [address] [facility] [address] GLYCOHEMO HEMOGLOBIN 6.2 4.0 - 5.6 08/24 H Specimen Type: BLOOD ST. GLOBIN A1C/HEMOGLO /2020 Comment: Te sts performed on Gonsalez Director Of Cardiology (405) SN:[id number] MARCELA (A1C BIN.TOTAL Ordering Prov ider: GRETCHEN PEREZ ONLY) IN BLOOD BY Report Rele ased Date/Time: Feb 22, 2021 10:13 AM HPLC Reporting Lab: [facility] [address] [facility] [address] Performing Lab: [facility] [address] [facility] [address] VIT D CALCIFEROL 40.8 20 - 50 08/24 Specimen Type : SERUM ST. 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 Location Location Encounter Encounter Reason Attending ADM DC Stat us Disposition Source Details Type Number For Provider Date Date Visit Outpatient 72451-940 11/11 WHIT E Encounter [id number] /2020 [facility] 10931-7.40 11/11 WH[facility] E Encounter [id number] /2020 [facility] 07601-9.40 11/11 WH[facility] Encounter [id number] /2020 [facility] 66146-7.40 12/13 [facility] E [id number] /[facility] 53841-9.40 Diagnos ADELITA, 12/20 W JIMBO PHONE CALL [id number] is: MILTON B /2020 R IVER 11-20 MIN ICD-10- [facility]CT [facility] Z79.01 medical terminologist (curren t) use of anticoa gulants
wi th Provide r Comment s: Long-te rm current use of anticoa gulant (SCT 6902987 03) Outpatient 75338-3.40 02/22 WHIT E Encounter [id number] /2020 [facility]P 11779-2.40 Diagnos SÁNCHEZ PEREZ 02/22 ST. EST MOD [id number] is: MOSES /2020 JOHNSBU 30-39 MIN 29 ICD-10- RY CBOC CM I25.10 Athscl heart disease of [place] coronar y artery w/o ang pctrs<b r/>with Provide r Comment s: Atheros cleroti c Heart Disease of [place] Coronar y Artery without Angina Pectori s Outpatient 47696-102/24 WHIT E Encounter [id number] /20[place] [address]-3.40 Diagnos ADELITA, 02/24 WHITE PHARM EST [id number] is: MILTON RI DORI 15 MIN ICD-10- [facility] Z79.01 medical terminologist (curren t) use of anticoa gulants
wi Provide r Comment s: Long-te rm current use of anticoa gulant (SCT 5512951 03) Outpatient 40 03/02 WH[facility] E Encounter [id number] [facility] COMPREHENS 05833-6.40 Diagnos RADHA, 04/12 ST. ELA [id number] is: HLEY [facility] HEARING 39 ICD-10- RY [facility] TEST CM H90.3 Sensori neural hearing loss, bilater al
with Provide r Comment s: Asymmet rical sensori neural hearing loss (SNOMED CT 8914214 09) Outpatient 04/15 WHIT E Encounter [id number] /2021 [facility] OFFICE O/P 36274-1.40 Diagnos PETTIGLIO, 04/28 ST. EST [id number] is: SAMMY A JOHNSB U MINIMAL 02 ICD-10- RY CBOC PROB CM Z23 Encount er for immuniz ation<b r/>with Provide r Comment s: Encount er for Immuniz ation HC PRO 34093-7.40 Diagnos NICOLA LEONE 04/29 W JIMBO PHONE CALL [id number] is: AN RIVE R 11-20 MIN ICD-10- [facility] Z79.01 medical terminologist (curren t) use of anticoa gulants
wi th Provide r Comment s: Long-te rm current use of anticoa gulant (SCT [id number] 03) Outpatient 98508-6.40 07/04 WHIT E Encounter [id number] [facility] Outpatient 39210-2.40 03/03 WHIT E Encounter [id number] [facility] Social History Combined list of available smoking, tobacco, and other social history [facility] 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 An actual copy of the Directive is not included. Date Advance Directive Provider Source 01/15/2019 ADVANCE DIRECTIVE DISCUSSION STEPHANIE HERNANDEZ [facility]
--- OUTSIDE RECORDS SUMMARY | 2022-05-04 11:01 | XMS_ITS | Encounter Summary ---
:1945 Author Organization [facility] Address [address] [place] [address] Care Team Providers Name Role Phone Jennifer Gomez SUPERVISOR KENNEL Primary Care Provider Encounter Details Date Type Department Care Team Description 01/25/2022 Lab Requisition [facility] Outr Resulting Lab, Pathology & Laboratory Provider [facility] [address], [place] [address] Social History Tobacco Use Types Packs/Day Years [...] nature Salmonella PCR Negative Negative [facility] Shigella/Enteroinvasive Negative Negative [facility] HN LAB CAMPYLOBACTER PCR Negative Negative [facility] Shiga Toxin PCR Negative Negative [facility] SERVICES Specimen Feces - Specimen from rectum (specimen) Performing Organization Address City/State/ZIP Code Phon e Number [facility] [address] [place] [address] SERVICES documented in this encounter Visit Diagnoses Not on filedocumented in this encounter Care Teams Gravel Inspector Relationship Specialty Start Date End Date Jennifer Gomez, SUPERVISOR KENNEL PCP - General 05/10/15 [facility] [address] [place], [place] [id number] documented as of this encounter
--- OUTSIDE RECORDS SUMMARY | 2022-05-04 11:01 | XMS_ITS | Encounter Summary ---
:1945 Author Organization [facility] Address [address] [place] [address] Care Team Providers Name Role Phone Jennifer Gomez EXTENSION EDUCATOR Primary Care Provider Encounter Details Date Type Department Care Team Description 04/24/2022 Lab Requisition [facility] Outr Resulting Lab, Pathology & Laboratory Provider [facility] [address], [place] [address] Social History Tobacco Use Types Packs/Day Years [...] T3, Free 2.8 2.8 - 5.3 pg/mL [facility] SERVICES Specimen Blood - Venous blood (substance) Performing Organization Address City/State/ZIP Code Phon e Number [facility] [address] [place] [address] SERVICES documented in this encounter Visit Diagnoses Not on filedocumented in this encounter Care Teams It Support Consultant Relationship Specialty Start Date End Date Jennifer Gomez, EXTENSION EDUCATOR PCP - General 05/10/15 [facility] [address] [place] [address] documented as of this encounter
--- OUTSIDE RECORDS SUMMARY | 2022-05-04 11:01 | XMS_ITS | Clinical Summary ---
:1945 Author Organization [facility] Address [address] [place] [address] Care Team Providers Name Role Phone PinalJennifer vega Bunny ICING MAKER Primary Care Provider Encounters Date Type Specialty [...] T3, Free 2.8 2.8 - 5.3 pg/mL [facility] SERVICES Specimen Blood - Venous blood (substance) Performing Organization Address City/State/ZIP Code Phon e Number [facility] [address] [place] [address] SERVICES from Last 3 Months Insurance Payer Benefit Plan Subscriber ID Effective Phone Address Typ e / Group Dates MUTUAL OF MUTUAL OF [id number] 2018-Prese [id number] [place] [address] MEDICARE MEDICARE A/B [id number] 2011-Pres [address] Medicare GL ent [id number] [place] [address] (Work) Jovany Hi Personal/Family Self [address] (Home) [place] [address] (Work) Jovany Hi Personal/Family Self [address] (Home) [place] [address] (Work) Jovany Hi Personal/Family Self [address] (Home) [place] [address] (Work) Care Teams Life Sciences Teacher Relationship Specialty Start Date End Date Jennifer Gomez NP PCP - General 05/10/15 [facility] [address] [facility] [place] [id number]
--- OUTSIDE RECORDS SUMMARY | 2022-05-04 11:02 | XMS_ITS | Encounter Summary ---
:1945 Author Organization [facility] Address [address] [place] [address] Care Team Providers Name Role Phone Unavailable Primary Care Provider Unavailable Encounter Details Date Type Department Care Team Description 09/02/2003 Results Only [facility] - Otis Patel MD conversion [address] [facility] [address] [place] [address] [place] [address] (Wo rk) Social History Tobacco Use Types [...] ANGEL LUIS SALINAS ? Accession #: ? [id number] ? : ? 1945 (Age: 58) ??M [...] of the lesion is recommended. ?? (Dr. Mascorro)/[employer] Microscopic Description: ? The epidermis is hype [...] and cords of similar melanocytes that show community relations police lieutenant maturation with descent. ??There is papillary dermal fibroplasia. ??(Dr. Mascorro)/[employer] Document reviewed and electronically signed by: Mai [...] entirely submitted in one cassette. ??(Dr Stephany Amador)/[facility] End of Report Specimen Performing Organization Address City/State/ZIP Code Phon e Number [facility] [address] [place] [address] SERVICES [facility] [address] [place] [address] documented in this encounter Visit Diagnoses Not on filedocumented in this encounter
--- OUTSIDE RECORDS SUMMARY | 2022-05-04 11:02 | XMS_ITS | Encounter Summary ---
:1945 Author Organization [facility] [place] [address] Care Team Providers Name Role Phone France Lam MD Primary Care Provider Encounter Details Date Type Department Care Team Description 01/16/2020 Telephone Vascular Surgery at [facility] Ryan [place]an, [place] [address] Social History Tobacco Use Types Packs/Day [...] fidelina. Ryan Tran, MSN, RN-BC, NCTTP Tobacco Float Remover [facility] Pager #[phone] documented in this encounter Plan of Treatment Not on filedocumented as of this encounter Visit Diagnoses Not on filedocumented in this encounter Care Teams Certified Surgical First Assistant Relationship Specialty Start Date End Date France Lam MD PCP - General 05/02/13 02/04/20 [address] [place] [place] [address] documented as of this encounter
--- OUTSIDE RECORDS SUMMARY | 2022-05-04 11:02 | XMS_ITS | Encounter Summary ---
:1945 Author Organization [facility] [place] [address] Care Team Providers Name Role Phone Jovany Lott MD Primary Care Provider Encounter Details Date Type Department Care Team Description 11/10/2020 Telephone Cardiology at [facility] [address] Social History Tobacco Use Types Packs/Day [...] on filedocumented in this encounter Care Teams Stapler Machine Relationship Specialty Start Date End Date Jovany Lott MD PCP - General Family Medicine 02/05/20 [place] [id number] documented as of this encounter
--- OUTSIDE RECORDS SUMMARY | 2022-05-04 11:02 | XMS_ITS | Encounter Summary ---
:1945 Author Organization [facility] Address [address] [place] [address] Care Team Providers Name Role Phone Jovany Lott MD Primary Care Provider Encounter Details Date Type Department Care Team Description 10/08/2020 Telephone Cardiology at [facility] Faustino Garduno [place] [facility] [place] [address] [place] [address] [phone] (Wo rk) Social History Tobacco Use Types [...] with Dr. Chou, his provider via the [place] (see my prior clinic note). His case was reviewed by our Watchman (left atrial appendage closure team). He has anatomy that would be conducive to closure, should he wish to pursue this for stroke prevention and ability to be off anticoagulation snf. Left message for callback to our Structural Program (contact Willow Callejas APRN). If he is interested, I would be happy to offerscheduling for him. Faustino Garduno MD Pager [phone] documented in this encounter Plan of Treatment Not on filedocumented as of this encounter Visit Diagnoses Not on filedocumented in this encounter Care Teams Content Strategist Relationship Specialty Start Date End Date Jovany Lott MD PCP - General Family Medicine 02/05/20 [address] [place] [address] documented as of this encounter
--- OUTSIDE RECORDS SUMMARY | 2022-05-04 11:02 | XMS_ITS | Encounter Summary ---
:1945 Author Organization [facility] [place] [address] Care Team Providers Name Role Phone Jovany Lott MD Primary Care Provider Reason for Visit Reason Onset Date Comments Follow-up 06/15/2020 Tobacco Treatment Encounter Details Date Type Department Care Team Description 06/15/2020 Telephone Vascular Surgery at Ryan Tran-melvin (Tobacco [facility] Sukumar, RN Treatment) [place] [address] Social History Tobacco Use Types Packs/Day [...] updated. Ryan Tran, MSN, RN-BC, NCTTP Tobacco Dimension Stone Quarry Supervisor [facility] Pager #[phone] documented in this encounter Plan of Treatment Not on filedocumented as of this encounter Visit Diagnoses Not on filedocumented in this encounter Care Teams Director Of Property Management Relationship Specialty Start Date End Date Jovany Lott MD PCP - General Family Medicine 02/05/20 [place] [address] documented as of this encounter
--- OUTSIDE RECORDS SUMMARY | 2022-05-04 11:02 | XMS_ITS | Encounter Summary ---
:1945 Author Organization [facility] Address [address] [place] [address] Care Team Providers Name Role Phone Jennifer Gomez OIL DELIVERER Primary Care Provider Encounter Details Date Type Department Care Team Description 08/26/2021 Lab Requisition [facility] Najma Valladares for other Pathology & M, DO general examination Laboratory Medicine - [email or web address] [facility] [address] [place] [phone] Social History Tobacco Use Types Packs/Day Years [...] 8:45 EST) Note to Patient The following [facility] MEDICAL pathology results have CENTER been interpreted by your LABORATORY pathologist and may be SERVICES available to you before your health provider has had the opportunity to review them. Please allow time for your provider to receive these results and explore management options, if applicable. Final Diagnosis A. RECTUM, POLYP, BIOPSY : [facility] MEDICAL - Polypoid submucosal anal glands. CENTER - Overlying rectal mucosa negative for dysplasia. LABORATORY - See comment. SERVICES Diagnosis Comment This rectal polyp shows a cantor bmucosal collection of anal duct glands causing a polypoid configuration. The morphology and the immunohistochemical profile are consistent with a benign (non-neoplastic) pro [facility] MEDICAL cess. Liquor Rectifier slides of this case were reviewed at the gastrointestinal/liver intradepartmental consultation conference. CENTER LABORATORY ANTIBODY(CLONE)(BLOCK):RESULT SERVICES CK7 (RN7, Leica) (A1): Strongly positive PAX-8 (MRQ-50, Sheldon) (A1): Negative NKX3.1 (Rabbit Polyclonal, Biocare) (A1): Negative GATA3 (L50-823, Sheldon) (A1): Negative NOTE: One or more of [...] have been de termined by [facility] and/or by the referring laboratory. The [...] laboratory testing. Attestation By the signature below, [facility] Elec tronically the attending physician CENTER sign ed by Odalis, certifies that they have LABORATORY Tami MD edna on 1) personally conducted SERVICES 2021 at 1309 a gross and/or microscopic examination of the described specimen(s), and/or personally interpreted the results of laboratory testing of the described specimen(s), and 2) personally rendered or confirmed the above diagnosis. Clinical History Flex sigmoidoscopy; [facility] diverticulosis, polyp CENTER LABORATORY SERVICES Gross Description A. [facility] Received in formalin mark d with proper patient identification (initials M, J) and rectal polyp is a marr-brown polyp, 0.6 x 0.5 x 0.4 cm. Bisected and entirely submitted in A1. CENTER LABORATORY ESTEFANY NICHOLS(ASCP) 08/26/2021 16:41 SE RVICES Performing Lab [facility] Scanned Images [facility] SERVICES Specimen Tissue - Specimen from rectum (specimen) Performing Organization Address City/State/ZIP Code Phon e Number [facility] [address] [place] [address] SERVICES documented in this encounter Visit Diagnoses Diagnosis Encounter for other general examination documented in this encounter Care Teams Statistics Intern Relationship Specialty Start Date End Date Jennifer Gomez NP PCP - General 05/10/15 [facility] [address] [place] [address] documented as of this encounter
--- OUTSIDE RECORDS SUMMARY | 2022-05-04 11:02 | XMS_ITS | Encounter Summary ---
:1945 Author Organization [facility] Address [facility] [place] [address] Care Team Providers Name Role Phone France Lam MD Primary Care Provider Encounter Details Date Type Department Care Team Description 12/30/2019 TH Visit Cardiology at [facility] Faustino Garduno Claudication from peripheral vascular disease, left ; (TeleHealth) [facility] MD Jaquan Hyperlipidemia, unspecified hyperlipidem ia type; Drive [facility] Acute ST elevation myocardia l infarction (STEMI) of inferior wall; [place], [place] Center Acute systolic CHF (congestive heart reid lure), NYHA class 3, MILVIA/AHA stage C; [address] [place], [place] Intracranial hemorrhage; [phone] [id number] Atrial fibrillation, unspecified type Social History Tobacco [...] with ICH, bilateral PE; paroxysmal atrial fibrillation [[id number]: 5]; PAD; HLD; HTN; smoking and PFO,who [...] a non-culprit artery. S/P DESx3 in the rzijlikt-kh-ypfcmd RCA. Aspiration thrombectomy performed, and integrellin bolus [...] with ICH, bilateral PE; paroxysmal atrial fibrillation [[id number]: 5]; PAD; HLD; HTN; smoking and PFO, who presents for post-discharge cardiovascular follow-up. CV issues are currently stable. Plan 1. CAD - CCS Class 0. Recovering well. He has completed 1 month of triple therapy. He may stop his aspirin, and resume clopidogrel and apixaban. Starting cardiac rehab. He wishes to pursue PCSK9 referral via the [place] system. 2. Afib - CHADS2-vasc 5, presently [...] 6 months Faustino Garduno MD Time spent: [id number] 0-5min 7195WKF6 6-10min 4418ZJT1 11-15min 5719NSP3 16-20min XXXX [id number] 21-30min 4026QKZ3 31-40min 5318AQC3 40+ min documented in this encounter Plan [...] type documented in this encounter Care Teams Application Infrastructure Engineer Relationship Specialty Start Date End Date France Lam MD PCP - General 05/02/13 02/04/20 [address] [place] [address] documented as of this encounter
--- OUTSIDE RECORDS SUMMARY | 2022-05-04 11:02 | XMS_ITS | Encounter Summary ---
:1945 Author Organization [facility] Address [address] [place] [address] Care Team Providers Name Role Phone Unavailable Primary Care Provider Unavailable Encounter Details Date Type Department Care Team Description 09/15/2003 Results Only [facility] - Otis Patel MD conversion [address] [facility] [address] [place] [address] [place] [address] (Wo rk) Social History Tobacco Use Types [...] ANGEL LUIS SALINAS ? Accession #: ? [id number] ? : ? 1945 (Age: 58) ??M ? Collect Date: ? 09/15/2003 ? Location: ? [facility] ? Receive Date: ? 004 ? Provider: OTIS MOSS MD Copy to: MALCOM MCGEE SOFTWARE DEVELOPER MID LEVEL ? Final Pathologic Diagnosis: ? Skin of [...] e Number [facility] [address] [place] [address] SERVICES [facility] [address] [place] [address] documented in this encounter Visit Diagnoses Not on filedocumented in this encounter
--- OUTSIDE RECORDS SUMMARY | 2022-05-04 11:02 | XMS_ITS | Encounter Summary ---
:1945 [place] [address] Care Team Providers Name Role Phone France Lam MD Primary Care Provider Encounter Details Date Type Department Care Team Description 12/29/2019 Ancillary Procedure Radiology Library at Ivette Salas [facility] [place] [address] [place] [address] [phone] (Wo rk) Social History Tobacco Use Types [...] is for storage only. Alfreda Salas APRN [facility] FILM LIBRARY ORDERABLES Performing Organization Address City/State/ZIP Code Phon e Number [place], [place] documented in this encounter Visit Diagnoses Not on filedocumented in this encounter Care Teams Pizza Chef Relationship Specialty Start Date End Date France Lam MD PCP - General 05/02/13 02/04/20 [address] [place] [address] documented as of this encounter
--- OUTSIDE RECORDS SUMMARY | 2022-05-04 11:02 | XMS_ITS | Encounter Summary ---
:1945 Author Organization [facility] Address [address] [place] [address] Care Team Providers Name Role Phone Jovany Lott MD Primary Care Provider Encounter Details Date Type Department Care Team Description 08/31/2020 TH Visit Cardiology at [facility] Faustino Garduno Atrial fibrillation, unspeci fied type (Primary Dx); (TeleHealth) [facility] Jaquan Acute ST elevation myocardial infarction (STEMI) of inferior wall; [facility] Acute systolic CHF (congesti ve heart failure), NYHA class 3, MILVIA/AHA stage C; [place], [place] Center Hyperlipidemia, unspecified hyperlipidem ia type; [address] [place], [place] Intracranial hemorrhage; [phone] [address] PFO (patent foramen ovale); [phone] Claudication fr om peripheral vascular disease, left [...] with ICH, bilateral PE; paroxysmal atrial fibrillation [[id number]: 5]; PAD; HLD; HTN; smoking and PFO,who [...] with Dr. Faustino Chou at the [facility]. However, he has not grossly noted that [...] a non-culprit artery. S/P DESx3 in the jftudazv-wq-xthsce RCA. Aspiration thrombectomy performed, and integrellin bolus [...] with ICH, bilateral PE; paroxysmal atrial fibrillation [[id number]: 5]; PAD; HLD; HTN; smoking and PFO, [...] Will also discuss further with his local hull molder, Dr. Mejia. 3. Bilateral PE - Case discussed with Dr. Sanchez above; likely provoked in lieu of his prolonged hospitalization. He has completed at least 6 months of oral A/C (coinciding treatment for his afib). 4. PAD - Continue optimal medical therapy for now. Will place referral for SET/walking program. F/U 3 months Faustino Garduno MD Time spent: 35 minutes Addendum 09/13/20: Called [phone] or [phone] and was able to speak to Dr. Faustino Chou. Pt also sees Dr. Lott in [facility] for local primary care needs. Dr. Chou [...] unspecified documented in this encounter Care Teams Wood Window And Door Craftsman Relationship Specialty Start Date End Date Jovany Lott MD PCP - General Family Medicine 02/05/20 [place] [id number] documented as of this encounter
--- OUTSIDE RECORDS SUMMARY | 2022-05-04 11:02 | XMS_ITS | Encounter Summary ---
:1945 Author Organization [facility] Address [address] [place] [address] Care Team Providers Name Role Phone France Lam MD Primary Care Provider Reason for Visit Reason Onset Date Comments TeleHealth 01/08/2020 Appt 01/09/20 Encounter Details Date Type Department Care Team Description 01/08/2020 Telephone Neurology at [facility] Efrain Nicole PA TeleHealth (Appt [facility] 12/30 ) [place] [address] NEUROLOGY [phone] [place], [place] [address] (Wo rk) Social History [...] on filedocumented in this encounter Care Teams Criminal Intelligence Analyst Relationship Specialty Start Date End Date France Lam MD PCP - General 05/02/13 02/04/20 [address] [place] [address] documented as of this encounter
--- OUTSIDE RECORDS SUMMARY | 2022-05-04 11:02 | XMS_ITS | Encounter Summary ---
:1945 Author Organization [facility] [place] [address] Care Team Providers Name Role Phone France Lam MD Primary Care Provider Reason for Visit Reason Onset Date Comments TeleHealth 01/12/2020 Encounter Details Date Type Department Care Team Description 01/12/2020 Telephone Neurosurgery at [facility] Alfreda Salas, TeleHealth [facility] [place] [address] [facility] [phone] [place], [place] [address] (Wo rk) Social History Tobacco [...] filedocumented in this encounter Care Teams Gear Repair Supervisor Relationship Specialty Start Date End Date France Lam MD PCP - General 05/02/13 02/04/20 [address] [place] [address] documented as of this encounter
--- OUTSIDE RECORDS SUMMARY | 2022-05-04 11:02 | XMS_ITS | Encounter Summary ---
:1945 Author Organization [facility] Address [facility] [address] [place] [address] Care Team Providers Name Role Phone France Lam MD Primary Care Provider Encounter Details Date Type Department Care Team Description 12/22/2019 Telephone Cardiology Riki Stevens, [facility] [place] [address] [facility] [phone] [facility] [place] [phone] (Wo rk) Social History Tobacco Use Types [...] on filedocumented in this encounter Care Teams Classics Professor Relationship Specialty Start Date End Date France Lam MD PCP - General 05/02/13 02/04/20 [address] [place] [address] documented as of this encounter
--- OUTSIDE RECORDS SUMMARY | 2022-05-04 11:02 | XMS_ITS | Encounter Summary ---
:1945 Author Organization [facility] Address [address] [place] [address] Care Team Providers Name Role Phone Jennifer Gomez ASSEMBLY ADJUSTER Primary Care Provider Encounter Details Date Type Department Care Team Description 03/19/2019 Hospital Encounter [facility] Unknown, Provider, [facility] 0 [facility] [phone] [place] [address] (Work) [phone] Social History Tobacco Use Types Packs/Day Years Used Date Never Assessed Sex Assigned at Date Recorded Not on file documented as of this encounter Discharge Disposition Disposition Code Departure Means Destination Home or Self [facility] documented in this encounter Plan of Treatment Not on filedocumented as of this encounter Visit Diagnoses Not on filedocumented in this encounter Care Teams Inventory Control Supervisor Relationship Specialty Start Date End Date Jennifer Gomez, ASSEMBLY ADJUSTER PCP - General 05/10/15 [facility] [address] [place], [place] [address] documented as of this encounter
--- OUTSIDE RECORDS SUMMARY | 2022-05-04 11:02 | XMS_ITS | Encounter Summary ---
:1945 Author Organization [facility] [address] Care Team Providers Name Role Phone France Lam MD Primary Care Provider Encounter Details Date Type Department Care Team Description 01/09/2020 TH Visit Neurology at [facility] Efrain Nicole, Intracranial hemorrhage; (TeleHealth) [facility] ESTEFANY Tobacco abuse; [facility] Cerebrovascular accident (CV A) due to embolism of right posterior cerebral artery [facility] [id number] NEUROLOGY [phone] [place] [address] Social History Tobacco Use Types Packs/Day Years Used Date Current Every Day Smoker Cigars 0.5 Sex Assigned at Date Recorded Not on file documented as of this encounter Progress Notes Efrain Nicole PA - 01/09/2020 9:00 AM EDT Cerebrovascular Disease and Stroke Program Department [place] [address] t: [phone] / f: [phone] TELEPHONE ENCOUNTER Date of Appointment: 01/09/2020 I [...] for duration of anticoagulation for PE Modified [place] Scale (MRS) 0: No symptoms at all [...] -advised vision/eye exam with his local provider ([facility]); consider referral to neuro-ophthalmology here in [...] artery documented in this encounter Care Teams Director Gift Relationship Specialty Start Date End Date France Lam MD PCP - General 05/02/13 02/04/20 [address] [place] [address] documented as of this encounter
--- OUTSIDE RECORDS SUMMARY | 2022-05-04 11:02 | XMS_ITS | Encounter Summary ---
:1945 Author Organization [facility] [place] [address] Care Team Providers Name Role Phone France Lam MD Primary Care Provider Encounter Details Date Type Department Care Team Description 12/08/2019 Telephone Neurosurgery at [facility] [place] [address] Social History Tobacco Use Types Packs/Day Years Used Date Current Every Day Smoker Cigars 0.5 Sex Assigned at Date Recorded Not on file documented as of this encounter Miscellaneous Notes Telephone Encounter - Elza Bradshaw - 12/22/2019 6:[address] in [facility] Telephone Encounter - Elza Bradshaw - 12/18/2019 3:43 PM EDT Left message at [facility] requesting they call back to advise if patient has been scheduled for CT. Telephone Encounter - Sarah Boucher - 12/08/2019 3:[address] order to [facility] to schedule, 12/16-12/18 for 12/22 TOV scheduled w/[facility] Telephone Encounter - Sarah Boucher - 12/08/2019 9:50 AM EDT RN, please put in CT order external=[facility] Pt's called not able to come to [facility] on 12/[address] to have CT locally at [facility] call w/results. documented in this encounter Plan of Treatment Not on filedocumented as of this encounter Visit Diagnoses Not on filedocumented in this encounter Care Teams It Service Manager Relationship Specialty Start Date End Date France Lam MD PCP - General 05/02/13 02/04/20 [address] [place] [address] documented as of this encounter
--- OUTSIDE RECORDS SUMMARY | 2022-05-04 11:02 | XMS_ITS | Encounter Summary ---
:1945 Author Organization [place] [address] Care Team Providers Name Role Phone Jovany Lott MD Primary Care Provider Encounter Details Date Type Department Care Team Description 10/05/2020 Notes Only Cardiology Merlin Sanchez MD [facility] [place] [address] CARDIOLOGY DEPT. [phone] [place], [place] [address] (Wo rk) Social History Tobacco [...] BEKAH-C with [facility] Merlin Sanchez MD [facility] Pager 2020 documented in this encounter Plan of Treatment Not on filedocumented as of this encounter Visit Diagnoses Not on filedocumented in this encounter Care Teams Packer Dried Beef Relationship Specialty Start Date End Date Jovany Lott MD PCP - General Family Medicine 8/6/20 [address] [place] [address] documented as of this encounter
--- OUTSIDE RECORDS SUMMARY | 2022-05-04 11:02 | XMS_ITS | Encounter Summary ---
:1945 Author Organization [facility] Address [address] [place] [address] Care Team Providers Name Role Phone Jennifer Gomez COREMAKING SUPERVISOR Primary Care Provider Encounter Details Date Type Department Care Team Description 02/07/2020 Lab Requisition [facility] Outr Resulting Lab, Pathology & Laboratory Provider [facility] [address] [place] [address] Social History Tobacco Use Types [...] (02/07/2020 7:59 EDT) COVID-19 rt-PCR NEGATIVE Negative [facility] Result Comment: LABORATORY 2019-novel [...] Address City/State/ZIP Code Phon e Number [facility] [place], [place] COVID-19 TESTING (02/07/2020 7:59 EDT) COVID-19 rt-PCR NEGATIVE Negative [facility] Result Comment: LABORATORY 2019-novel [...] Administration's Emergency Use Authorization. Performing Lab [facility] LABORATORY SERVICES Specimen Swab Performing Organization Address City/State/ZIP Code Phon e Number [facility] [address] [place] [address] SERVICES [facility] [place], [place] documented in this encounter Visit Diagnoses Not on filedocumented in this encounter Care Teams Meat Puller Relationship Specialty Start Date End Date Jennifer Gomez NP PCP - General 05/10/15 [facility] [address] [place], [place] [address] documented as of this encounter
--- OUTSIDE RECORDS SUMMARY | 2022-05-04 11:02 | XMS_ITS | Encounter Summary ---
:1945 Author Organization [facility] Address [address] [place] [address] Care Team Providers Name Role Phone Jennifer Gomez ELECTRIC ACCOUNTING MACHINE OPERATOR Primary Care Provider Encounter Details Date Type Department Care Team Description 03/19/2019 Results Only [facility] Angel Luis Lott MD [phone] [address] [place], [place] [id number] (Wo rk) Social History Tobacco Use Types [...] (03/19/2019 16:47 EDT) Pathology SURGICAL PATHOLOGY REPORT [facility] Report: Reports generated via electronic interface conta in original data; CENTER LABORATORY however they are lacking the format of the original re port. SERVICES Caution should be taken when reading/interpreting unfo rmatted reports. Name: ? ANGEL LUIS HI ? Accession #: ? [id number] ? : ? 1945 (Age: 8 3) [...] shown in i ntradepartmental consultation conference. ??(Dr. Cononlly)/jadiel Microscopic Description: Sections consist of a punch [...] Organization Address City/State/ZIP Code Phon e Number [facility] [address] [place] [address] SERVICES documented in this encounter Visit Diagnoses Not on filedocumented in this encounter Care Teams Freight Weigher Relationship Specialty Start Date End Date Jennifer Gomez NP PCP - General 05/10/15 [facility] [address] [place], [place] [id number] documented as of this encounter
--- OUTSIDE RECORDS SUMMARY | 2022-05-04 11:02 | XMS_ITS | Encounter Summary ---
:1945 [place] [address] Care Team Providers Name Role Phone France Lam MD Primary Care Provider Encounter Details Date Type Department Care Team Description 12/08/2019 Orders Only Neurosurgery at [facility] Natalia Delong, Intracranial [facility] [place] [address] Social History Tobacco Use Types Packs/Day Years Used Date Current Every Day Smoker Cigars 0.5 Sex Assigned at Date Recorded Not on file documented as of this encounter Plan of Treatment Not on filedocumented as of this encounter Visit Diagnoses Diagnosis Intracranial hemorrhage Unspecified intracranial hemorrhage documented in this encounter Care Teams Aircraft Tool Maker Relationship Specialty Start Date End Date France Lam MD PCP - General 05/02/13 02/04/20 [address] [place] [address] documented as of this encounter
--- OUTSIDE RECORDS SUMMARY | 2022-05-04 11:02 | XMS_ITS | Encounter Summary ---
:1945 Author Organization [facility] Address [address] [place] [address] Care Team Providers Name Role Phone Jovany Lott MD Primary Care Provider Encounter Details Date Type Department Care Team Description 03/10/2022 Ancillary Procedure Radiology Library at Jovany Lott MD [facility] [address] [facility] [address] [place] [address] [phone] Social History Tobacco Use Types Packs/Day Years [...] Organization Address City/State/ZIP Code Phon e Number [place], [place] documented in this encounter Visit Diagnoses Not on filedocumented in this encounter Care Teams Associate Director Regulatory Affairs Relationship Specialty Start Date End Date Jovany Lott MD PCP - General Family Medicine 02/05/20 [address] [place] [address] documented as of this encounter
--- OUTSIDE RECORDS SUMMARY | 2022-05-04 11:02 | XMS_ITS | Encounter Summary ---
:1945 Author Organization [facility] [place] [address] Care Team Providers Name Role Phone France Lam MD Primary Care Provider Encounter Details Date Type Department Care Team Description 12/23/2019 TH Visit Neurosurgery [place] [facility] Alfreda Salas Intracranial (TeleHealth) [facility] C, PILLING MACHINE [place] [address] Center [phone] [place] [address] Social History Tobacco Use Types Packs/Day Years Used Date Current Every Day Smoker Cigars 0.5 Sex Assigned at Date Recorded Not on file documented as of this encounter Progress Notes Alfreda Salas C, PILLING MACHINE OPERATOR - 12/23/2019 1:30 PM EDT Images [...] hemorrhage documented in this encounter Care Teams Litigation Assistant Relationship Specialty Start Date End Date France Lam MD PCP - General 05/02/13 02/04/20 [address] [place] [address] documented as of this encounter
--- OUTSIDE RECORDS SUMMARY | 2022-05-04 11:02 | XMS_ITS | Encounter Summary ---
:1945 Author Organization [facility] [place] [address] Care Team Providers Name Role Phone France Lam MD Primary Care Provider Reason for Visit Reason Onset Date Comments TeleHealth 12/22/2019 Appt 12/23/19 Encounter Details Date Type Department Care Team Description 12/22/2019 Telephone Neurosurgery at [facility] Alfreda Salas TeleHealth (Appt [facility] Devin Sebastian, BOOM PUMP OPERATOR 12/23/19) [place] [address] [place] [address] [place] [address] Social History Tobacco Use Types Packs/Day [...] on filedocumented in this encounter Care Teams Motor Polarizer Relationship Specialty Start Date End Date France Lam MD PCP - General 05/02/13 02/04/20 [address] [place] [address] documented as of this encounter
--- OUTSIDE RECORDS SUMMARY | 2022-05-04 11:02 | XMS_ITS | Encounter Summary ---
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 [phone] [place] [address] Social History Tobacco Use Types Packs/Day Years [...] best is to differ this conversation until mcc OAC strategy has been set. Specifically, if this is being treated as a provoked dvt/pe, then would re-evaluate to coordinated with OAC discontinuation. I discussed the above findings with the patient and his both of whom appear to understand and is in agreement with the plan going forward. Merlin Sanchez M.D., F.A.C.C. product builder Pager 2020 >50% of the 15 minute [...] failure documented in this encounter Care Teams Lunch Wagon Operator Relationship Specialty Start Date End Date France Lam MD PCP - General 05/02/13 02/04/20 [address] [place] [address] documented as of this encounter
--- OUTSIDE RECORDS SUMMARY | 2022-05-04 11:02 | XMS_ITS | Clinical Summary ---
:1945 Author Organization [facility] [place] [address] Care Team Providers Name Role Phone Jovany Lott MD Primary Care Provider Allergies Active Allergy Reactions Severity Noted Date Comments Penicillins 05/13/2013 Pt doesn't gely mber reaction Fnawacg-Jtj-Yrd Reductase 05/13/2013 St iff neck, upset stomach, [...] Address City/State/ZIP Code Phon e Number [place], [place] from Last 3 Months Insurance Payer Benefit Plan / Subscriber ID Effective Dates Phone Addre ss Type Group MEDICARE MEDICARE PART [id number] 2019-Prese [phone] [place] [phone] [place] [id number] 2018-Presen [employer] [place] [id number] Advance Directives Latest Code Status on File [...] capacity to make decision: Yes Care Teams Commercial Litigation Attorney Relationship Specialty Start Date End Date Jovany Lott MD PCP - General Family Medicine 02/05/20 [address] [place] [id number]
--- OUTSIDE RECORDS SUMMARY | 2022-05-04 11:03 | XMS_ITS | Encounter Summary ---
:1945 Author Organization [facility] [place] [address] Care Team Providers Name Role Phone France Lam MD Primary Care Provider Reason for Referral Consultation (Routine) - Specialty Diagnoses / Procedures Referred By Contact Refer red To Contact Cardiology Diagnoses Acute ST elevation myocardial infarction (STEMI) of inferior wall Darrell Glasgow MD [facility] [place] [address] Referral ID Status Reason Start Date Expiration Date Visits V isits Requested Authorized [id number] Consult, 12/08/2019 06/05/2020 1 1 Test & Treat Consultation (Routine) - Closed Specialty Diagnoses / Referred By Contact Referred To Contact Procedures Cardiac Rehabilitation Diagnoses ST elevation myocardial infarction involving right coronary artery Gretchen Yoon, Cardiac Rehab, [address] [place] [address] Fax: Referral ID Status Reason Start Date Expiration Date Visits V isits Requested Authorized [id number] Closed Consult, 12/08/2019 06/05/2020 36 36 Test & Treat Reason for Visit Auth/Cert Specialty Diagnoses / Procedures Referred By Contact Refer red To Contact Diagnoses STEMI (ST elevation myocardial infarction) STEMI Procedures CARDIAC CATHETERIZATION Referral ID Status Reason Start Date Expiration Date Visits Requ ested Visits Authorized [id number] 1 1 Encounter Details Date Type Department Care Team Description 11/29/2019 - Hospital Encounter Cardiac Special YoungBarbra MD [facility] [place] [address] ST elevation myocardial infarction invol ving left main coronary artery; 12/08/2019 Care Unit Paris Lozano MD [facility] [place] [address] ST elevation myocardial infarction invol ving right coronary artery; [facility] Edema of upper extremity; Hospital Intracranial hemorrhage; [facility] Paroxysma l atrial fibrillation; Drive Acute pulmonary embolism, un specified pulmonary embolism type, unspecified whether acute cor pulmonale present; [place], [place] Acute ST elevat ion myocardial infarction (STEMI) of inferior wall [id number] Social History Tobacco Use Types Packs/Day Years [...] Luis Salinas Patient Age: 74 y.o. Language: Italian Race: White Ethnicity: Not nor Admit date: [...] months on: antiplatelet therapy at discretion of lapel baster - Repeat TTE in 3 months to reassess LV function - Repeat BMP in 1-2 weeks given recent start lisinopril - Referred to lipid clinic for consideration of PCSK-9 inhibitor given STEMI with intolerance of statins - Started on amiodarone this admission for recurrent rapid atrial flutter with rates ~170, recommendcontinued assessment of necessity of rhythm control strategy with lapel baster - Amiodarone monitoring recommendations as below - [...] please contact your inpatient physician through the [facility] Food Services Coordinator . Issues after hours and on weekends [...] and Compazine. He was transferred directly to [facility] via [facility] for further management. Patient had an emergent PCI with 3 MACARIO stents placed to his RCA, with mild disease of LCX (report pending) at [facility]. He was found to be persistently hypotensive requiring Levo up to 10mcg/min. He was transferred to [facility] after the cath procedure. Bedside [...] drip as described above. On arrival at [facility] he was taken for cardiac cath where [...] premounted 3.50 x 26 mm Resolute MENDEZ (MAACRIO) was deployed with a maximum inflation pressure [...] number below. Electronically signed by: Estefani Harris [facility] ([phone]), at 11/29/2019 4:[address] Head wo Contrast (Generic) (Exam End: 11/30/2019 10:41 AM) Impression Focal hemorrhage with small amount of adjacent edema projecting in the region of the left optic tract. Thank you for letting us participate in the care of this patient. For questions regarding this report, please contact the number below. Electronically signed by: [facility] ([phone]), at 11/30/2019 12:[address] Head wo [...] below. Electronically signed by: [facility] Luis [facility] ([phone]), at 11/30/2019 5:[address] Angiogram [place] (Exam End: 11/30/2019 4:36 PM) Impression Head CT: Stable hemorrhage in the region of the left optic tract. CTA: Negative exam. No abnormal vasculature in the area of hemorrhage. Thank you for letting us participate in the care of this patient. For questions regarding this report, please contact the number below. Electronically signed by: Angel Luis Barboza MD, [facility] ([phone]), at 11/30/2019 5:04 PM MRI Brain wo [...] Electronically signed by: Angel Luis Barboza MD, [facility] ([phone]), at 12/01/2019 8:02 PM XR Chest One [...] number below. Electronically signed by: Latoya Ivey [facility] ([phone]), at 11/30/2019 8:[address] Head wo [...] number below. Electronically signed by: Merari Collins [facility] ([phone]), at 12/01/2019 3:53 PM XR Chest One View (Exam End: 12/02/2019 1:00 PM) Impression Slightly increased small bibasilar pleural effusions and atelectasis. Thank you for letting us participate in the care of this patient. For questions regarding this report, please contact the number below. Electronically signed by: Ashly Marley [facility] ([phone]), at 12/02/2019 1:[address] Cardiac for [...] number below. Electronically signed by: Roselyn Luciano [facility] ([phone]), at 12/04/2019 6:16 PM MRI Brain wwo Contrast (Generic) (Exam End: 12/05/2019 7:59 PM) Impression No significant interval change. Thank you for letting us participate in the care of this patient. For questions regarding this report, please contact the number below. Electronically signed by: Merari Collins [facility] ([phone]), at 12/05/2019 10:[address] Head wo [...] number below. Electronically signed by: Merari Collins [facility] ([phone]), at 12/06/2019 10:06 PM Pending Studies and Lab Data: N/A Discharge Conditions/Prognosis: stable Discharge to: home Updated Allergies/ADRs: Allergies Allergen Reactions ??? Penicillins Pt doesn't remember reaction ??? Fmhkoxd-Csj-Xeu Reductase Inhibitors Stiff neck, upset stomach, back [...] medications at another hospital and then at [facility] you had a stent placed in a [...] FOR ONE MONTH AND THEN STOP. Your lapel baster may tell you to start this medication again after one year. Clopidogrel (Plavix) 75 mg daily - This medication will help prevent clots from forming in your blood, which will help protect the stent that was placed in your heart vessel. TAKE THIS FOR ONE YEAR ANDTHEN DISCUSS WITH YOUR SULFONATION EQUIPMENT OPERATOR WHETHER TO STOP. Amiodarone 400mg twice daily [...] follow up: Your primary care provider and lapel baster will manage your blood thinner (apixaban). You do not need lab monitoring of this medication. Diet: Please consume a healthy diet low in cholesterol Follow up Appointments: 12/10/2019 at 3:10PM with PCP Angel Luis Lott Future Appointments Date Time Provider Department Center 12/23/2019 1:30 PM Alfreda Salas APRN [address] 12/26/2019 9:40 AM Merlin Sanchez MD [facility] CARD 4A [facility] 12/30/2019 3:40 PM Gretchen Yoon MD [facility] 4A [facility] Future Appointments and Orders Future Appointments and Orders Future Appointments Provider Department Dept Phone 12/23/2019 1:30 PM Alfreda Salas APRN Neurosurgery at [facility] Arrive at: Home [phone] Please do not come in for this visit. Your provider will call you at the number you provided. 12/26/2019 9:40 AM Merlin Sanchez MD Cardiology at [facility] Arrive at: Home [phone] Please do not come in for this visit. Your provider will call you at the number you provided. 12/30/2019 3:40 PM Gretchen Yoon MD Cardiology at [facility] Arrive at: Home [phone] Please do not come in for this visit. Your provider will call you at the number you provided. Future Orders Complete By Expires Referral to Cardiac Rehab [[id number] Custom] As directed Process Instructions: If no progress note charted, please enter Clinical details in comments. Scheduling Instructions: Questions: My question or request is: STEMI. Cardiac rehab at [facility] Referral to [facility] [REF43 Custom] As directed Process Instructions: If no progress note charted, please enter Clinical details in comments. Scheduling Instructions: Questions: My question or request is: patient with inferior stemi with history of statin allergy (rash) - please evaluate for psck9 inhibitor. Referral to Home Health - at DISCHARGE [ZCC8950 CPT(R)] As directed Process Instructions: Scheduling Instructions: Comments: DOCUMENTATION FOR VNA SERVICES PATIENT'S LOCATION: [address] [phone] (home) Cardiology Clinical Consultant's Name: Self In discussion with the attending physician, it is certified that this patient is under his/her care and that MD, or an NEWSPAPER WRITER, MARKET RISK SPECIALIST, or PA who is working directly with him/her, had a dlqg-yt-dxch encounter that meets the physician siir-pc-ibxf encounter requirements with this patient on 12/07/2019. [...] HEALTH CARE AGENCY: [facility], PHONE: [phone] FAX: [phone] Start of care: 24-48 hours after hospital [...] MD [address] / [place] [address] All A agencies which cover the area [...] info: PCP Your PCP: France Lam MD [phone] For questions regarding this document or issues relating to this hospitalization on the Cardiology Service, please contact your inpatient physician through the [facility] Food Services Coordinator . Issues after hours and on weekends will be handled by the Director Digital Catalogue on-call. Patient Instructions: Neurology Your Diagnosis: Left [...] follow-up appointment in the neurology clinic at [facility]. See below for the appointment time. [...] 1:30 PM Alfreda Salas APRN Neurosurgery at [facility] Arrive at: Home [phone] Please do not come in for this visit. Your provider will call you at the number you provided. 12/26/2019 9:40 AM Merlin Sanchez MD Cardiology at [facility] Arrive at: Home [phone] Please do not come in for this visit. Your provider will call you at the number you provided. 12/30/2019 3:40 PM Gretchen Yoon MD Cardiology at [facility] Arrive at: Home [phone] Please do not come in for this visit. Your provider will call you at the number you provided. Future Orders Complete By Expires Referral to Cardiac Rehab [[id number] Custom] As directed Process Instructions: If no progress note charted, please enter Clinical details in comments. Scheduling Instructions: Questions: My question or request is: STEMI. Cardiac rehab at [facility] Referral to [facility] [REF43 Custom] As directed Process Instructions: If no progress note charted, please enter Clinical details in comments. Scheduling Instructions: Questions: My question or request is: patient with inferior stemi with history of statin allergy (rash) - please evaluate for psck9 inhibitor. Referral to Home Health - at DISCHARGE [ATB5182 CPT(R)] As directed Process Instructions: Scheduling Instructions: Comments: DOCUMENTATION FOR VNA SERVICES PATIENT'S LOCATION: [address] [phone] (home) Cardiology Clinical Consultant's Name: Self In discussion with the attending physician, it is certified that this patient is under his/her care and that MD, or an NEWSPAPER WRITER, MARKET RISK SPECIALIST, or PA who is working directly with him/her, had a mhmd-lu-lnry encounter that meets the physician txba-ud-ruld encounter requirements with this patient on 12/07/2019. [...] HEALTH CARE AGENCY: [facility], PHONE: [phone] FAX: [phone] Start of care: 24-48 hours after hospital [...] France Lam MD [address] / [facility] [address] All A agencies which cover the area [...] contact info: PCP Discharge References/Attachments Atrial Fibrillation (Italian) Cardiac Rehabilitation (Italian) Heart Failure (Italian) Heart Failure: Limiting Sodium (Italian) Hemorrhagic Stroke: General Info (Italian) Smoking: Stopping (Italian) Stroke Rehabilitation: General Info (Italian) Pulmonary Embolism (Italian) Riki Stevens MD PGY-3, Internal Medicine Cardiology S2, #2147 Associated attestation - Paris Dodd MD - 12/09/2019 4:44 PM EDT Cardiology Attending Discharge Addendum I was the assigned attending lapel baster for this clinical encounter. For the purposes [...] complications include novel onset, paroxysmal atrial fibrillation [[id number]: 5] & L-sided diplopia with potential hemineglect [...] My contact information: Paris Matt MD MPH [place] [phone] (office); Pager #[phone] Email: [email or web address] documented in this encounter Discharge Instructions Patient InstructionsFiRiki de jesus MD - 12/02/2019 9:56 AM EDT Images from the original note were not included. Why you were hospitalized: You had a heart attack. You received clot-busting medications at another hospital and then at [facility] you had a stent placed in a [...] FOR ONE MONTH AND THEN STOP. Your lapel baster may tell you to start this medication again after one year. Clopidogrel (Plavix) 75 mg daily - This medication will help prevent clots from forming in your blood, which will help protect the stent that was placed in your heart vessel. TAKE THIS FOR ONE YEAR ANDTHEN DISCUSS WITH YOUR SULFONATION EQUIPMENT OPERATOR WHETHER TO STOP. Amiodarone 400mg twice daily [...] follow up: Your primary care provider and lapel baster will manage your blood thinner (apixaban). You do not need lab monitoring of this medication. Diet: Please consume a healthy diet low in cholesterol Follow up Appointments: 12/10/2019 at 3:10PM with PCP Angel Luis Lott Future Appointments Date Time Provider Department Center 12/23/2019 1:30 PM Alfreda Salas APRN [facility] [id number] [facility] 12/26/2019 9:40 AM Merlin Sanchez MD [facility] CARD 4A [facility] 12/30/2019 3:40 PM Gretchen Yoon MD [facility] CARD 4A [facility] Future Appointments and Orders Future Appointments and Orders Future Appointments Provider Department Dept Phone 12/23/2019 1:30 PM Alfreda Salas APRN Neurosurgery at [facility] Arrive at: Home [phone] Please do not come in for this visit. Your provider will call you at the number you provided. 12/26/2019 9:40 AM Merlin Sanchez MD Cardiology at [facility] Arrive at: Home [phone] Please do not come in for this visit. Your provider will call you at the number you provided. 12/30/2019 3:40 PM Gretchen Yoon MD Cardiology at [facility] Arrive at: Home [phone] Please do not come in for this visit. Your provider will call you at the number you provided. Future Orders Complete By Expires Referral to Cardiac Rehab [[id number] Custom] As directed Process Instructions: If no progress note charted, please enter Clinical details in comments. Scheduling Instructions: Questions: My question or request is: STEMI. Cardiac rehab at [facility] Referral to [facility] [REF43 Custom] As directed Process Instructions: If no progress note charted, please enter Clinical details in comments. Scheduling Instructions: Questions: My question or request is: patient with inferior stemi with history of statin allergy (rash) - please evaluate for psck9 inhibitor. Referral to Home Health - at DISCHARGE [[id number] CPT(R)] As directed Process Instructions: Scheduling Instructions: Comments: DOCUMENTATION FOR VNA SERVICES PATIENT'S LOCATION: [address] [phone] (home) Cardiology Clinical Consultant's Name: Self In discussion with the attending physician, it is certified that this patient is under his/her care and that MD, or an NEWSPAPER WRITER, MARKET RISK SPECIALIST, or PA who is working directly with him/her, had a wgft-ur-ecvb encounter that meets the physician lpya-rj-rcqy encounter requirements with this patient on 12/07/2019. [...] HEALTH CARE AGENCY: [facility], PHONE: [phone] FAX: [phone] Start of care: 24-48 hours after hospital [...] MD [address] / [place] [address] All A agencies which cover the area [...] info: PCP Your PCP: France Lam MD [phone] For questions regarding this document or issues relating to this hospitalization on the Cardiology Service, please contact your inpatient physician through the [facility] Food Services Coordinator . Issues after hours and on weekends will be handled by the Director Digital Catalogue on-call. Patient Instructions: Neurology Your Diagnosis: Left [...] follow-up appointment in the neurology clinic at [facility]. See below for the appointment time. If you do not have an appointment, you will be called with a time/date for this appointment. ??? Primary Care Provider: Please follow up with your Primary Care Provider within one to 2 weeks ofdischarge. AttachmentsThe following attachments cannot be sent through Care Everywhere. Atrial Fibrillation (Italian)Cardiac Rehabilitation (Italian)Heart Failure (Italian)Heart Failure: Limiting Sodium (Italian)Hemorrhagic Stroke: General Info (Italian)Smoking: Stopping (Italian)Stroke Rehabilitation: General Info (Italian)Pulmonary Embolism (Italian)documented in this encounter Medications at Time of [...] consulted in the interim. Vikash Rodriguez Pager: [phone] Paris Dodd MD - 12/08/2019 8:57 AM [...] complications include novel onset, paroxysmal atrial fibrillation [[id number]: 5] & L-sided diplopia with potential hemineglect [...] consulted in the interim. Vikash Rodriguez Pager: [phone] Paris Dodd MD - 12/07/2019 9:55 AM [...] complications include novel onset, paroxysmal atrial fibrillation [RZW5VR2AJAK: 5] & L-sided diplopia with potential hemineglect [...] complications include novel onset, paroxysmal atrial fibrillation [KVT5NZ9KNDQ: 5] & L-sided diplopia with potential hemineglect [...] complications include novel onset, paroxysmal atrial fibrillation [VFY6YF0LMGG: 5] & L-sided diplopia with potential hemineglect [...] today; additional complications include paroxysmal atrial fibrillation [VUA3NT4GVML: 4] c/b possible cardioembolic stroke, ICH from [...] length from neck/greatest diameter to back wall: AUSTRIAN 91, CAU 13: 19 mm CORTES 1, [...] a non-culprit artery. S/P DESx3 in the hwqumybb-cj-qmfbml RCA. Aspiration thrombectomy performed, and integrellin bolus [...] complications include novel onset, paroxysmal atrial fibrillation [YWD7LG0ROFK: 5] & L-sided diplopia with potential hemineglect [...] R occipital cardioembolic stroke #Paroxysmal Afib with RP3MBLNP5R score of 5 #New segmental bilateral PEs [...] Glasgow MD PGY1, Internal Medicine Cardiology S2, #6789 Associated attestation - Paris Dodd MD - 12/05/2019 2:59 PM EDT I was the assigned attending lapel baster for this clinical encounter. For the purposes [...] 12/04/2019 10:36 AM EDT Office of Care Management(OCM)/Rv Body Mechanic(CM)/Discharge Planning Service: Cardiology S2 team CM Bernie Alexander,RN,BSN,MA,ACM pgr [phone] Reviewed record and in Cardiology Rounds with MD team,CMs, migratory farm hand, ASSEMBLY DEPARTMENT SUPERVISOR. Pt is anticipated ready for d/c later today. Met w pt re d/c plan and he continues to agree with home PT/OT/RN w [place]. His son is bringing his to pick him up together. Discussed Advance Directives and DPOAH- he states he has at home and designated his as primiary; he thought his PCP would have copy. Tel call to PCP who notes no DPOAH on file. Encouraged pt to take his AD to his PCP and to any [facility] appt for each to have on file. [...] monitoring]: Tele, pulse ox, purposeful rounding, call churhcill in reach Patient-specific fall prevention interventions for [...] complications include novel onset, paroxysmal atrial fibrillation [HDB6GG3DGDW: 4] & L-sided diplopia with potential hemineglect [...] a non-culprit artery. S/P DESx3 in the bnjsxwcf-ta-lrqaqm RCA. Aspiration thrombectomy performed, and integrellin bolus [...] complications include novel onset, paroxysmal atrial fibrillation [PUK6FD9FNOX: 5] & L-sided diplopia with potential hemineglect [...] R occipital cardioembolic stroke #Paroxysmal Afib with TG7RUCRU3Z score of 5 - No anticoagulation for [...] Glasgow MD PGY1, Internal Medicine Cardiology S2, #9397 I have seen the patient and reviewed [...] in my clinic. Gretchen Yoon MD Pager [phone] Derian Pascual RN - 12/03/2019 9:29 AM [...] Discharge: None Electronically signed: Derian Pascual RN, Rv Body Mechanic Pgr: [phone] 12/03/2019 9:29 AM Gretchen [...] complications include novel onset, paroxysmal atrial fibrillation [VXX5RP4TAUS: 4] & L-sided diplopia with potential hemineglect [...] a non-culprit artery. S/P DESx3 in the ldfcgsxq-ks-mesvhc RCA. Aspiration thrombectomy performed, and integrellin bolus [...] complications include novel onset, paroxysmal atrial fibrillation [HEI8XN0UNNP: 5] & L-sided diplopia with potential hemineglect [...] [facility] and [facility] with [facility]. Patient voiced strong will to quit smoking now, understood that we have resources available for help. Plan [P]: --Neurologic-- # Concern for Left-Sided Diplopia, r/o Hemineglect # Concern for CVA, last-known well 11/29/19 - MRI showed possible cardioembolic stroke #Afib with JK3WNVZP6E score of 5 - Stroke Team Consulted; [...] Anticoagulation/Arrhythmia # Novel Onset, Paroxsymal Atrial Fibrillation [WDL1KF8QGVZ: 5] - Hold off anticoagulation for at [...] w straight cath prn # Nutrition - [facility] Diet, 2g Na. -- Hematology/Oncology-- # Mild [...] Glasgow MD PGY1, Internal Medicine Cardiology S2, #0358 I have seen the patient and reviewed the resident's above history and I agree with the details as written. The assessment and plan were formulated in discussion with me and I agree with them as documented. Gretchen Yoon MD Pager [phone] Raul Hein RN - 12/03/2019 5:55 AM [...] Negative mcL Appearance UA Clear Clear Spec [place] UA 1.026 1.006 - 1.030 Color UA [...] PGY3 Neurology Resident 12/01/2019 Vascular Neurology Pager [phone] Neurology Attending Attestation I evaluated the patient [...] documented. Deepthi Roman MD Vascular Neurology Standard [facility] Swallow Screen: This screen is to be [...] diet as medical provider deems appropriate. Consider RELAY ASSEMBLER consult for full evaluation and diet recommendations. [...] complications include novel onset, paroxysmal atrial fibrillation [ONM6WP9WFBA: 4] & L-sided diplopia with potential hemineglect [...] a non-culprit artery. S/P DESx3 in the nmvbnrum-mj-qiriqe RCA. Aspiration thrombectomy performed, and integrellin bolus [...] complications include novel onset, paroxysmal atrial fibrillation [DIE3TO3VSTZ: 5] & L-sided diplopia with potential hemineglect [...] Anticoagulation/Arrhythmia # Novel Onset, Paroxsymal Atrial Fibrillation [KBV6DW2TELU: 5] - Hold off anticoagulation - pending [...] tamsulosin d/t low BP. # Nutrition - [facility] Diet -- Hematology/Oncology-- # Mild Thrombocytopenia, unclear [...] Glasgow MD PGY1, Internal Medicine Cardiology S2, #[id number] I have seen the patient and reviewed [...] the ICU team. Gretchen Yoon MD Pager [phone] Natalia Claros APRN - 12/02/2019 8:38 AM [...] - We are signing off. Please page [phone] with any questions or concerns. For questions please call NS pager [phone] Natalia Claros APRN 12/02/2019 8:38 AM Clinical Documentation Improvement: Active Hospital Problems Diagnosis ??? Acute ST elevation myocardial infarction (STEMI) of inferior wall ??? Intracranial hemorrhage ??? Hyperlipidemia ??? Tobacco abuse ??? Claudication from peripheral vascular disease, left Resolved Hospital Problems No resolved problems to display. Tello Hsu, RELINER - 12/02/2019 2:06 AM EDT 06/01/20 2010 [...] number below. Electronically signed by: Latoya Ivey [facility] ([phone]), at 11/30/2019 8:32 PM ASSESSMENT: Patient states he is breathing easier than last night. Still increased WOB PLAN: Wean FiO2 as tolerated. Patient to CT Scan in afternoon. Upon arrival back in [facility] placed on low flow NC [...] complications include novel onset, paroxysmal atrial fibrillation [[id number]: 4] & L-sided diplopia with potential hemineglect for which CVA evaluationto be pursued. Active Problems/Subjective: - 11/28: admitted for inferior STEMI, RV failure requiring pressor - got lytics, aspirin and plavix load, heparin gtt, and eptifibatide. 3 MACARIO stents to RCA. [place] cath - low wedge & CVP so [...] a non-culprit artery. S/P DESx3 in the ooswevix-or-ppucuw RCA. Aspiration thrombectomy performed, and integrellin bolus [...] complications include novel onset, paroxysmal atrial fibrillation [[id number]: 4] & L-sided diplopia with potential hemineglect [...] Anticoagulation/Arrhythmia # Novel Onset, Paroxsymal Atrial Fibrillation [[id number]: 4] - Obtain: TTE - Pending CVA [...] tamsulosin d/t low BP. # Nutrition - [facility] Diet -- Hematology/Oncology-- # Mild Thrombocytopenia, unclear [...] MD, PGY1 PGY3, Internal Medicine Cardiology S2, #2924 I have seen the patient and reviewed [...] down the line. Gretchen Yoon MD Pager [phone] ?? Gretchen Yoon MD Pager [phone] Natalia Claros APRN - 12/01/2019 1:33 AM [...] per primary team For questions please call farmhopping pager [phone] Natalia Claros APRN 12/01/2019 7:42 AM Clinical Documentation Improvement: Active Hospital Problems Diagnosis ??? Acute ST elevation myocardial infarction (STEMI) of inferior wall ??? Intracranial hemorrhage ??? Hyperlipidemia ??? Tobacco abuse ??? Claudication from peripheral vascular disease, left Resolved Hospital Problems No resolved problems to display. Tello Hsu, RELINER - 11/30/2019 8:44 PM EDT Respiratory Therapy [...] number below. Electronically signed by: Latoya Ivey [facility] ([phone]), at 11/30/2019 8:32 PM ASSESSMENT: Patient had [...] EDT Narrative:Visited in response to request for Thermodynamics Engineer services. Pt was awake, alert, oriented and in bed. Assessment:Patient coping positively with stresses of illness/hospitalization at this time. Pt says that he is hoping to get better and pt is living with and has children and grandchildren. Pt haspurpose of life and has reason to get getter and to be with family. Outcome: Provided emotional and spiritual support and encouraging presence. Thermodynamics Engineer services accepted.Conversation to build trusting relationship.Provided pastoral [...] complications include novel onset, paroxysmal atrial fibrillation [[id number]: 4] & L-sided diplopia with potential hemineglect for which CVA evaluationto be pursued. Active Problems/Subjective: - Overnight, CVP < 12 for which a total of 1 L IVF provided - Today AM, patient complains of subjectively reported, left-sided hemineglect with floaters and diplopia [see: exam]. - Otherwise, c/o neck pain 2/2 R IJ [place] & L radial A line. Otherwise, denies [...] a non-culprit artery. S/P DESx3 in the ossynsqo-pu-egyhge RCA. Aspiration thrombectomy performed, and integrellin bolus [...] complications include novel onset, paroxysmal atrial fibrillation [[id number]: 4] & L-sided diplopia with potential hemineglect [...] Anticoagulation/Arrhythmia # Novel Onset, Paroxsymal Atrial Fibrillation [[id number]: 4] - Obtain: TTE to confirm rhythm [...] tamsulosin d/t low BP. # Nutrition - [facility] Diet -- Hematology/Oncology-- # Mild Thrombocytopenia, unclear [...] MD, PGY3 PGY3, Internal Medicine Cardiology S2, #5511 I have seen the patient and reviewed [...] down the line. Gretchen Yoon MD Pager [phone] Paola Capps RN - 11/30/2019 6:57 AM EDT PT still requiring 4 of levo, several attempts to titrate down (maps in 70;s) But maps would drop toless than 65. Pt very restless in bed Raising and lowering head denies pain . Integrillin stopped [id number] when bottle complete , urine tea colored [...] PCP: France Lam MD PCP phone #: [phone] Chief Legal Officer: None ID/Chief Complaint: Chest pain History [...] and Compazine. He was transferred directly to [facility] via [facility] for further management. Patient had an emergent PCI with 3 MACARIO stents placed to his RCA, with mild disease of LCX (report pending) at [facility]. He was found to be persistently hypotensive requiring Levo up to 10mcg/min. He was transferred to [facility] after the cath procedure. Bedside [...] ??? Penicillins Pt doesn't remember reaction ??? Ifcarez-Bxd-Oky Reductase Inhibitors Stiff neck, upset stomach, back pain Family History: Mother: Father: [place] 2 Uncles with MIs Social History: Tobacco: Current active smoker 1 ppd. 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 Vitals: Last value Range [...] in the last 7068 hours. Invalid input(s): HQUJAXESQOR3V Heme: No results for input(s): LDH, HAPTOGLOBIN, [...] OSH prior to transfer and PCI at [facility]. Massive inferior STEMI with troponin level 20, currently in CVCC due to pressor requirement. BedsideRHC demonstrated evidence of elevated right sided heart failure, but his wedge was wnl. He received 1L bolus with improvement of his blood pressure and reduction of his pressor requirement. PLAN: Admit to Cardiology, S2 Team Pager # [phone] #Inferior STEMI, LEYLA 149 - Resolving EKG [...] inferior STEMI s/p lytic therapy. Transferred to [facility] and underwent successful PCI of the RCA with MACARIO x3. Gretchen Yoon MD Pager [phone] documented in this encounter Procedure Notes Juventino [...] to the planned procedure. Hand Hygiene: The assistant professor of surgery did perform hand hygiene prior to arterial [...] a suspected line-associated infection. Location of Procedure: [facility] Risks and Benefits: The risks [...] to the planned procedure. Hand Hygiene: The assistant professor of surgery did perform hand hygiene prior to line [...] side:right An Introducer (PSI Kit) was used. [place]. Insertion Side: right. Insertion Site: internal jugular. Catheter Details: Number of Lumens: 1 Catheter Type: heparin-coated The line was placed over a guidewire. Confirmation of Venous Placement: Venous placement was confirmed by transducing the pressure. Introducer Insertion Attempts: 1 Comments: Floating the [place]-Mo Catheter Attempts: 1 Comments: Sterile Dressing: Biopatch [...] better pt back in SR. Please page [phone] for any more cares or concerns Plan [...] feelings encouraged -- Plan of Care - uMkesh Bentley RN - 12/06/2019 3:49 AM EDT [...] complications include novel onset, paroxysmal atrial fibrillation [[id number]: 5]& L-sided diplopia with potential hemineglect for [...] Total Evaluation Minutes, Occupational Therapy: 10 Pager: [phone] FRANCINE Nuñez Occupational Therapy Rehabilitation Department Plan [...] complications include novel onset, paroxysmal atrial fibrillation [[id number]: 5] & L-sided diplopia with potential hemineglect [...] hand rails). Baseline Mobility: Independent. Drives. Shares cell tender with his , however her mobility is [...] plan as stated. Time IN / OUT: 1565-0748 Total Evaluation Minutes, Physical Therapy: 15(gtx1) Barbara Baldwin, PT Pager: [phone] Physical Therapy Inpatient Rehabilitation Department Plan of [...] (Interventions Implemented as Appropriate) 12/02/19200312/03/19 0812/03/19 1147 [place] Fall Risk History of Falling -- 0 [...] he receives all he needs through the [facility]. Consult refused. Romain Tran, MSN, RN-, [facility] Tobacco Bridge Gang Worker [facility] Pager #[phone] Plan of Care - Romain Oglesby OT [...] complications include novel onset, paroxysmal atrial fibrillation [[id number]: 5] & L-sided diplopia with potential hemineglect [...] and measurable assessment of functional outcome. Pager: [phone] ROMAIN OGLESBY OT 12/03/2019 Occupational Therapy Rehabilitation [...] in an outpatient cardiac rehabilitation program at [facility] was discussed. Patient agrees to a referral to this program. His has been a cardiac rehab patient at [facility] and he is familiar with [...] complications include novel onset, paroxysmal atrial fibrillation [[id number]: 5] & L-sided diplopia with potential hemineglect [...] hand rails). Baseline Mobility: Independent. Drives. Shares cell tender with his , however her mobility is [...] in this evaluation. Time IN / OUT: 1698-9555 Total Evaluation Minutes, Physical Therapy: 25(eval, gtx1) Barbara Baldwin, PT Pager: [phone] Physical Therapy Inpatient Rehabilitation Department Consult Note [...] (L) 12/01/2019 Nutritional Intake Current bed: [facility] Assessment: Patient is with an area [...] Please contact JOHANNA NOBLES RN on pager [phone] or the wound care team at [phone] or pager [phone] skin and wound care concerns or questions. [...] making law. Any patient receiving carspousee at [facility] must abide by [place] law. The hierarchy [...] (i) The agent with financial power of criminal defense attorney or a conservator appointed in [...] Insurance: N/A Prescription Coverage: Yes Preferred Pharmacy: [place], [place] Other: No Primary Care Provider: France Lam MD [phone] Patient/Caregiver Goals of Treatment: Return home Potential Needs for Transition of Care: Rehab/SNF: Based on discussions with the multi-disciplinary healthcare team, the patient would benefit from SNF level of care at discharge. ?? I have met with the patient to discuss discharge planning needs. I have provided the [facility], Officeof Care Management letter from the Clerk Entry Level pertaining to rehab referrals. I have also provided a letter describing our affiliations within the [facility] and educated them about their [...] patient have requested referrals to: ?? 1. [facility] [address] [place] [id number] ?? [address]. [address] [place] [address] Note routed to Field Crop Technical Officer who will communicate referrals to facilities and provide any required information. Home Health: If therapies recommend home w/ VNA, the patient has been provided a list of Home Health Agencies/DME vendors which serve their preferred geographic area. A letter describing our affiliations was reviewed with them and they were educated about their right to choose where referrals are placed. Patient requests referral to [facility]. PHONE: [phone] FAX: [phone] Referral routed to the Field Crop Technical Officer for matching with agency/vendor and to provide [...] Insured w/ Medicare. Gets medications filled at [facility] in [place], [place]. Son to transport at discharge Plan: Discharge dispo depending on patient's physical recovery; SNF vs home w/ VNA. A member of the Care Management team will continue to monitor progress, follow for continuity of care and assist with transition of care planning. Derian Pascual, NIURKA Pager: [phone] Plan of Care - Estefani Baeza RN [...] ??? Penicillins Pt doesn't remember reaction ??? Vhbkdar-Xwl-Sur Reductase Inhibitors Stiff neck, upset stomach, back [...] noncontrast head CT and CT of the ambler of Bray at 1600 hrs. We will [...] vision concerning for stroke. Patient presented to [facility] in transfer for a STEMI after presenting [...] ??? Penicillins Pt doesn't remember reaction ??? Xwfaysn-Ceh-Msx Reductase Inhibitors Stiff neck, upset stomach, back [...] file Gets together: Not on file Attends cheondoism service: Not on file Active member of [...] L Elbow flexion 5/5 R, 5/5 L Hotbed Lever Operator LE: 5/5 R, 5/5 L Hip [...] PGY3 Neurology Resident 11/30/2019 Vascular Neurology Pager [phone] Standard [facility] Swallow Screen: This screen is to be [...] diet as medical provider deems appropriate. Consider RELAY ASSEMBLER consult for full evaluation and diet recommendations. [...] hours. Evan Mejia MD Department of Neurology [facility] Brief Op Note - Gretchen Yoon MD - 11/29/2019 8:38 PM EDT Brief Operative Note Patient Name: Angel Luis Salinas : [id number] MR#: [id number] Case Date: 11/29/2019 Surgeon: Surgeon(s) and Role: * Gretchen Yoon MD - Primary * Aidan Ward MD - Fellow Preoperative diagnosis: Inferior STEMI Postoperative diagnosis: Inferior STEMI Procedure(s) (LRB): CARDIAC CATHETERIZATION (N/A) Findings: Discrete 90% stenosis in the prox-to-mid RCA. Severe diffuse disease in the distal vessel. Discrete LCX stenosis in a non-culprit artery. S/P DESx3 in the kpamvhyk-ds-pwrgzx RCA. Aspiration thrombectomy performed, and integrellin bolus [...] [facility] mmol/L [facility] Comment: Please note: ??Patients with [...] Organization Address City/State/[place] [address] (ABNORMAL) Hemogram (12/08/2019 12:39 PM EDT) Analysis Performed At Patho logist Time Signature WBC 9.9 (H) 4.0 - 9.5 [facility] x[facility](3[facility] LABORATORY RBC 4.51 (L) 4.58 - [place] DOV 5.54 [facility] x10(6)/[facility] LABORATORY Hemoglobin 13.0 (L) 13.7 - [place] DOV 16.5 gm/dL [facility] Hematocrit 40.5 40.5 - [place] 48.5 % [facility] MCV 89.8 82.9 - [facility] DOV 93.1 [facility] LABORATORY MCH 28.8 27.5 - [place] D[place] 32.1 pg [facility] MCHC 32.1 32.0 - [place] DOV 35.7 gm/dL [facility] Platelets 214 145 - 357 [facility] x10(3)/[facility] LABORATORY RDWSD 49.2 (H) 36.0 - [place] D[place] 45.0 [facility] LABORATORY RDWCV 15.1 (H) 11.4 - [place] DOV 13.8 % [facility] LABOR[facility]ORY MPV 12.1 7.6 - 12.9 [facility] nRBC % Auto 0.0 % [facility] LABORATORY nRBC Abs Auto 0.000 0.000 - [place] DOV 0.000 [facility] x10(3)/[facility] LABORATORY Specimen Anatomical Collection Method Collection Time Receive d Time (Source) Location / / Volume Laterality Blood specimen 12/08/2019 12:39 0 (specimen) PM EDT 12:47 PM EDT Resulting Agency Comment Spec In Lab Gretchen Yoon MD HEMATOLOGY ORDERABLES Performing Organization Address City/State/ZIP Code Phon e Number [address] Hepatic Function Panel (12/08/2019 6:28 AM EDT) athologist Signature Total Protein 6.6 6.1 - 8.0 [facility] DOV gm/dL [facility] Albumin 3.2 3.2 - 5.2 [place] gm/dL [facility] AST 18 0 - 39 [place] unit/L [facility] ALT 13 0 - 55 [place] unit/L [facility] Alk Phos 64 40 - 130 [facility] ODV unit/L [facility] Total 0.4 0.2 - 1.3 [facility] Bilirubin mg/dL [facility] Bili, Direct 0.1 0.0 - 0.3 [facility] DOV mg/dL [facility] Specimen Anatomical Collection Method Collection Time Receive d Time (Source) Location / / Volume Laterality Blood specimen Venous Draw / 12/08/2019 6:28 AM 2019 6:36 (specimen) Unknown EDT AM EDT Resulting Agency Comment Spec In Lab Riki Stevens MD CHEMISTRY ORDERABLES Performing Organization Address City/[facility]/ZIP Code Phon e Number [address] (ABNORMAL) TSH (12/08/2019 6:28 AM EDT) athologist Signature TSH 5.27 (H) 0.27 - 4.20 [facility] DOV mcIU/mL [facility]OR[facility]ORY Specimen Anatomical Collection Method Collection Time Receive d Time (Source) Location / / Volume Laterality Blood specimen Venous Draw / 12/08/2019 6:28 AM 2019 6:36 (specimen) Unknown EDT AM EDT Resulting Agency Comment Spec In Lab Darrell Glasgow MD CHEMISTRY ORDERABLES Performing Organization Address City/[facility]/ZIP Code Phon e Number [address] Potassium (12/08/2019 6:28 AM EDT) P athologist Signature Potassium 4.2 3.5 - 5.0 [facility] mmol/L [facility] Comment: Please note: ??Patients with [...] Organization Address City/State/ZIP Code Phon e Number [place] [id number] (ABNORMAL) Differential, Automated (12/08/2019 12:43 AM EDT) Patholo gist Method Time Signature Neutrophils % 60.7 % [facility]ORY Neutr Abs (ANC) 6.81 (H) 1.70 - [facility] 6.10 [facility] x10(3)/[facility] LABORATORY Lymphocytes % 23.4 % [facility] LABORATORY Lymphocytes Abs 2.6 0.9 - 3.2 [facility] x10(3)/[facility] LABORATORY Monocytes % 10.0 % [facility] LABORATORY Monocyte Abs 1.1 (H) 0.3 - 0.9 [facility] x10(3)/[facility] LABORATORY Eosinophils % 3.7 % [facility] LABORATORY Eosinophils Abs 0.4 0.0 - 0.4 [facility] x10(3)/[facility] LABORATORY Basophils % 1.2 % [facility] LABORATORY Basophils Abs 0.1 0.0 - 0.1 [facility] x10(3)/[facility] LABORATORY Immature Gran % 1.00 % [...] Gran Abs 0.11 (H) 0.00 - 0.04 x10(3)/[facility] LABORATORY Specimen Anatomical Collection Method Collection Time Receive d Time (Source) Location / / Volume Laterality Blood specimen 12/08/2019 12:43 0 (specimen) AM EDT 12:52 AM EDT Resulting Agency Comment Spec In Lab Riki Stevens MD HEMATOLOGY ORDERABLES Performing Organization Address City/State/[place] [address] (ABNORMAL) Hemogram (12/08/2019 12:43 AM EDT) Analysis Performed At Patho logist Time Signature WBC 11.2 (H) 4.0 - 9.5 [facility] x10(3)/[facility] LABORATORY RBC 4.46 (L) 4.58 - [facility] DOV 5.54 [facility] x10(6)/[facility] LABORATORY Hemoglobin 13.1 (L) 13.7 - [facility] 16.5 gm/dL [facility] Hematocrit 40.5 40.5 - [facility] DOV 48.5 % [facility]ORY MCV 90.8 82.9 - [facility] 93.1 [facility] LABORATORY MCH 29.4 27.5 - [facility] DOV 32.1 pg [facility] MCHC 32.3 32.0 - [facility] DOV 35.7 gm/dL [facility] Platelets 215 145 - 357 [facility] x10(3)/[facility] LABORATORY RDWSD 49.8 (H) 36.0 - [facility] DOV 45.0 [facility] LABORATORY RDWCV 15.2 (H) 11.4 - [facility] DOV 13.8 % [facility] LABORATORY MPV 12.3 7.6 - 12.9 [facility] LABORATORY nRBC % Auto 0.0 % [facility] LABORATORY nRBC Abs Auto 0.000 0.000 - [facility] DOV 0.000 [facility] x10(3)/[facility] LABORATORY Specimen Anatomical Collection Method Collection Time Receive d Time (Source) Location / / Volume Laterality Blood specimen 12/08/2019 12:43 0 (specimen) AM EDT 12:52 AM EDT Resulting Agency Comment Spec In Lab Riki Stevens MD HEMATOLOGY ORDERABLES Performing Organization Address City/State/ZIP Code Phon e Number [address] Magnesium (12/08/2019 12:43 AM EDT) athologist Signature Magnesium 1.01 0.69 - 1.07 [facility] mmol/L [facility] Specimen Anatomical Collection Method Collection Time Receive d Time (Source) Location / / Volume Laterality Blood specimen 12/08/2019 12:43 0 (specimen) AM EDT 12:52 AM EDT Resulting Agency Comment Spec In Lab Gretchen Yoon MD CHEMISTRY ORDERABLES Performing Organization Address City/State/[place] [address] (ABNORMAL) BMP w/fasting Glucose (12/08/2019 12:43 AM EDT) P athologist Signature Glucose 106 (H) 65 - 99 [facility] Fasting mg/dL [facility] Comment: ?Fasting* Glucose Interpretive C [...] 2009 BUN 14 10 - 20 mg/dL [facility] DOV [facility] LABORATORY Creatinine 1.16 0.80 - 1.50 mg/dL [facility] LABORATORY Sodium 134 (L) 135 - [...] of body mass or the acutely ill. http://[email or web address]/[facility]nkf eGFR 72 >=60 mL/min/1.73 m?? [facility] Comment: The eGFR was calculated using the CKD-EP I equation. As with all creatinine based estimates of kidney function, eGFR values calculated with the CKD-EPI equation are not accurate in patients wi th acute kidney failure, extremes of body mass or the acutely ill. http://Win[employer]/[facility] Specimen Anatomical Collection Method Collection Time Receive d Time (Source) Location / / Volume Laterality Blood specimen 12/08/2019 12:43 0 (specimen) AM EDT 12:52 AM EDT Resulting Agency Comment Spec In Lab Gretchen Yoon MD CHEMISTRY ORDERABLES Performing Organization Address City/State/ZIP Code Phon e Number [place] [id number]OS[address] Heparin (unfractionated) Level (12/08/2019 12:43 AM EDT) athologist Signature Heparin UFH 0.60 IU/mL [facility] LABORATORY Comment: Guidelines for therapeutic [...] Organization Address City/State/[place] [address] Potassium (12/07/2019 8:39 PM EDT) athologist Signature Potassium 4.1 3.5 - 5.0 [facility] mmol/L [facility] Comment: Please note: ??Patients with [...] Address City/State/ZIP Code Phon e Number [address] Potassium (12/07/2019 4:02 PM EDT) P athologist Signature Potassium 4.0 3.5 - 5.0 [facility] DOV mmol/L [facility] Comment: Please note: ??Patients with [...] CHEMISTRY ORDERABLES Performing Organization Address City/[facility]/ZIP [place] [address] (ABNORMAL) Hemogram (12/07/2019 4:02 PM EDT) Analysis Performed At Patho logist Time Signature WBC 17.4 (H) 4.0 - 9.5 [place] D[place] x10(3)/[facility] LABORATORY RBC 4.58 4.58 - [place] DOV 5.54 [facility] x10(6)/[facility] LABORATORY Hemoglobin 13.5 (L) 13.7 - [place] DOV 16.5 gm/dL [facility] Hematocrit 40.8 40.5 - MELINA DOV 48.5 % [facility] LABORATORY MCV 89.1 82.9 - MELINA DOV 93.1 [facility] LABORATORY MCH 29.5 27.5 - MELINA DOV 32.1 pg [facility] MCHC 33.1 32.0 - MELINA DOV 35.7 gm/dL [facility] Platelets 238 145 - 357 MELINA DOV x10(3)/[facility] LABORATORY RDWSD 48.8 (H) 36.0 - MELINA DOV 45.0 [facility] LABORATORY RDWCV 15.0 (H) 11.4 - [facility] DOV 13.8 % [facility] MPV 12.2 7.6 - 12.9 MELINA DOV [facility] LABORATORY nRBC % Auto 0.0 % [facility] LABORATORY nRBC Abs Auto 0.000 0.000 - MELINA MONAE 0.000 [facility] x10(3)/[facility] LABORATORY Specimen Anatomical Collection Method Collection Time Receive d Time (Source) Location / / Volume Laterality Blood specimen 12/07/2019 4:02 PM 020 4:08 (specimen) EDT PM EDT Resulting Agency Comment Spec In Lab Gretchen Yoon MD HEMATOLOGY ORDERABLES Performing Organization Address City/[facility]/[place] [address] EKG 12 Lead (12/07/2019 [...] (Bezet) Calculated P -12 degrees MUSE SYSTEM [place] Calculated R 10 degrees MUSE SYSTEM [place] Calculated T -138 degrees MUSE SYSTEM [place] INTERPRETATION Supraventricular tachycardia MUSE SYSTEM Low voltage [...] [facility] mmol/L [facility] Comment: Please note: ??Patients with [...] Lagos MD CHEMISTRY ORDERABLES Performing Organization Address [facility] [place] [address] Heparin (unfractionated) Level (12/07/2019 11:43 AM EDT) athologist Signature Heparin UFH 0.59 IU/mL [facility] LABORATORY Comment: Guidelines for therapeutic [...] Lagos MD HEMATOLOGY ORDERABLES Performing Organization Address [facility] [place] [address] Heparin (unfractionated) Level (12/07/2019 5:20 AM EDT) P athologist Signature Heparin UFH 0.53 IU/mL [facility] LABORATORY Comment: Guidelines for therapeutic [...] Organization Address City/State/[place] [address] (ABNORMAL) Differential, Automated (12/07/2019 5:20 AM EDT) Patholo gist Method Time Signature Neutrophils % 62.4 % [facility] LABORATORY Neutr Abs (ANC) 5.46 1.70 - [facility] 6.10 [facility] x10(3)/[facility] LABORATORY Lymphocytes % 20.3 % [facility]OR[facility]ORY Lymphocytes Abs 1.8 0.9 - 3.2 [facility] x10(3)/[facility] LABORATORY Monocytes % 11.0 % [facility] LABORATORY Monocyte Abs 1.0 (H) 0.3 - 0.9 [facility] x10(3)/[facility] LABORATORY Eosinophils % 4.5 % [facility] Eosinophils Abs 0.4 0.0 - 0.4 [facility] x10(3)/[facility] LABORATORY Basophils % 0.9 % [facility] LABORATORY Basophils Abs 0.1 0.0 - 0.1 [facility] x10(3)/[facility] [...] Gran Abs 0.08 (H) 0.00 - 0.04 x10(3)/[facility] LABORATORY Specimen Anatomical Collection Method Collection Time Receive d Time (Source) Location / / Volume Laterality Blood specimen 12/07/2019 5:20 AM 020 5:37 (specimen) EDT AM EDT Resulting Agency Comment Spec In Lab Riki Stevens MD HEMATOLOGY ORDERABLES Performing Organization Address City/State/[place] [address] (ABNORMAL) Hemogram (12/07/2019 5:20 AM EDT) Analysis Performed At Patho logist Time Signature WBC 8.7 4.0 - 9.5 [facility] x10(3)/[facility] LABORATORY RBC 4.20 (L) 4.58 - [facility] 5.54 [facility] x10(6)/[facility] LABORATORY Hemoglobin 12.3 (L) 13.7 - [facility] 16.5 gm/dL [facility] Hematocrit 37.4 (L) 40.5 - [facility] 48.5 % [facility] MCV 89.0 82.9 - [facility] 93.1 fL [facility] MCH 29.3 27.5 - [facility] 32.1 pg [facility] MCHC 32.9 32.0 - MELINA MONAE 35.7 gm/dL [facility] Platelets 181 145 - 357 MELINA MONAE x10(3)/[facility] LABORATORY RDWSD 47.7 (H) 36.0 - MELINA MONAE 45.0 [facility] LABORATORY RDWCV 14.8 (H) 11.4 - MELINA MONAE 13.8 % [facility] MPV 12.3 7.6 - 12.9 MELINA DOV [facility] LABORATORY nRBC % Auto 0.0 % [facility] LABORATORY nRBC Abs Auto 0.000 0.000 - MELINA MONAE 0.000 [facility] x10(3)/[facility] LABORATORY Specimen Anatomical Collection Method Collection Time Receive d Time (Source) Location / / Volume Laterality Blood specimen 12/07/2019 5:20 AM 020 5:37 (specimen) EDT AM EDT Resulting Agency Comment Spec In Lab Riki Stevens MD HEMATOLOGY ORDERABLES Performing Organization Address City/[facility]/ZIP Code Phon e Number [address] Magnesium (12/07/2019 5:20 AM EDT) P athologist Signature Magnesium 0.89 0.69 - 1.07 [facility]/L [facility] Specimen Anatomical Collection Method Collection Time Receive d Time (Source) Location / / Volume Laterality Blood specimen 12/07/2019 5:20 AM 020 5:37 (specimen) EDT AM EDT Resulting Agency Comment Spec In Lab Gretchen Yoon MD CHEMISTRY ORDERABLES Performing Organization Address City/[facility]/ZIP Code Phon e Number [address] (ABNORMAL) BMP w/fasting Glucose (12/07/2019 5:20 AM EDT) P athologist Signature Glucose 100 (H) 65 - 99 [facility] Fasting mg/dL [facility] LAB[facility] Comment: ?Fasting* Glucose Interpretive C [...] LABORATORY Creatinine 0.83 0.80 - 1.50 mg/dL [facility] LABORATORY Sodium 135 135 - 145 [...] of body mass or the acutely ill. [email or web address] eGFR 101 >=60 mL/min/1.73 m?? [facility] LABORATORY Comment: The eGFR was calculated using the CKD-EP I equation. As with all creatinine based estimates of kidney function, eGFR values calculated with the CKD-EPI equation are not accurate in patients wi th acute kidney failure, extremes of body mass or the acutely ill. [email or web address] Specimen Anatomical Collection Method Collection Time Receive d Time (Source) Location / / Volume Laterality Blood specimen 12/07/2019 5:20 AM 020 5:37 (specimen) EDT AM EDT Resulting Agency Comment Spec In Lab Gretchen Yoon MD CHEMISTRY ORDERABLES Performing Organization Address [facility] [place] [address] Heparin (unfractionated) Level (12/06/2019 10:14 PM EDT) athologist Signature Heparin UFH 0.29 IU/mL [facility] LABORATORY Comment: Guidelines for therapeutic [...] Lagos MD HEMATOLOGY ORDERABLES Performing Organization Address [facility] [place] [address] Head wo Contrast [...] For questions regarding this report, please contact [email or web address] number below. ? Electronically signed by: Merari Collins [facility] ([phone]), at 12/06/2019 10:06 PM Narrative 12/06/2019 10:06 [...] number below. Electronically signed by: Merari Collins [facility] ([phone]), at 12/06/2019 10:06 PM Paris Lagos MD IMG CT ORDERABLES (ABNORMAL) Hemogram (12/06/2019 4:20 PM EDT) Analysis Performed At Patho logist Time Signature WBC 10.4 (H) 4.0 - 9.5 [facility](3[facility] LABORATORY RBC 4.32 (L) 4.58 - [facility] DOV 5.54 [facility] x10(6)/[facility] LABORATORY Hemoglobin 12.5 (L) 13.7 - [facility] 16.5 gm/dL [facility] Hematocrit 38.4 (L) 40.5 - [facility] 48.5 % [facility] MCV 88.9 82.9 - [facility] 93.1 [facility] LABORATORY MCH 28.9 27.5 - [facility] DOV 32.1 pg [facility] MCHC 32.6 32.0 - [facility] 35.7 gm/dL [facility] Platelets 194 145 - 357 [facility] x10(3)/[facility] LABORATORY RDWSD 46.9 (H) 36.0 - [facility] 45.0 [facility] LABORATORY RDWCV 14.6 (H) 11.4 - [facility] 13.8 % [facility] LABORATORY MPV 11.9 7.6 - 12.9 [facility] LABORATORY nRBC % Auto 0.0 % [facility] LABORATORY nRBC Abs Auto 0.000 0.000 - [facility] DOV 0.000 [facility] x10(3)/[facility] LABORATORY Specimen Anatomical Collection Method Collection Time Receive d Time (Source) Location / / Volume Laterality Blood specimen 12/06/2019 4:20 PM 020 4:31 (specimen) EDT PM EDT Resulting Agency Comment Spec In Lab Gretchen Yoon MD HEMATOLOGY ORDERABLES Performing Organization Address City/State/[place] [address] Heparin (unfractionated) Level (12/06/2019 4:20 PM EDT) P athologist Signature Heparin UFH 0.30 IU/mL [facility] LABORATORY Comment: Guidelines for therapeutic [...] Organization Address City/State/[place] [address] Heparin (unfractionated) Level (12/06/2019 10:02 AM EDT) athologist Signature Heparin UFH <0.04 IU/mL [facility] LABORATORY Comment: Guidelines for therapeutic [...] HEMATOLOGY ORDERABLES Performing Organization Address City/[facility]/ZIP Code Phon e Number [address] Magnesium (12/06/2019 3:36 AM EDT) P athologist Signature Magnesium 0.86 0.69 - 1.07 [facility] mmol/L [facility] LABORATORY Specimen Anatomical Collection Method Collection Time Receive d Time (Source) Location / / Volume Laterality Blood specimen 12/06/2019 3:36 AM 020 3:45 (specimen) EDT AM EDT Resulting Agency Comment Spec In Lab Gretchen Yoon MD CHEMISTRY ORDERABLES Performing Organization Address City/[facility]/ZIP Code Phon e Number [address] (ABNORMAL) BMP w/fasting Glucose (12/06/2019 3:36 AM EDT) P athologist Signature Glucose 103 (H) 65 - 99 [facility] Fasting mg/dL [facility] LABORATORY Comment: ?Fasting* Glucose Interpretive C [...] LABORATORY Creatinine 0.88 0.80 - 1.50 mg/dL [facility] LABORATORY Sodium 136 135 - 145 [...] of body mass or the acutely ill. [email or web address] eGFR 99 >=60 mL/min/1.73 m?? [facility] LABORATORY Comment: The eGFR was calculated using the CKD-EP I equation. As with all creatinine based estimates of kidney function, eGFR values calculated with the CKD-EPI equation are not accurate in patients wi th acute kidney failure, extremes of body mass or the acutely ill. [email or web address] Specimen Anatomical Collection Method Collection Time Receive d Time (Source) Location / / Volume Laterality Blood specimen 12/06/2019 3:36 AM 020 3:45 (specimen) EDT AM EDT Resulting Agency Comment Spec In Lab Gretchen Yoon MD CHEMISTRY ORDERABLES Performing Organization Address City/State/ZIP Code Phon e Number [address] (ABNORMAL) Hemogram (12/06/2019 3:36 AM EDT) Analysis Performed At Patho logist Time Signature WBC 9.2 4.0 - 9.5 [facility](3[facility] LABORATORY RBC 3.99 (L) 4.58 - MELINA DOV 5.54 [facility] x10(6)/[facility] LABORATORY Hemoglobin 11.9 (L) 13.7 - [facility] 16.5 gm/dL [facility] Hematocrit 35.5 (L) 40.5 - [facility] 48.5 % [facility] MCV 89.0 82.9 - [facility] 93.1 [facility] LABORATORY MCH 29.8 27.5 - MELINA DOV 32.1 pg [facility] LABORATORY MCHC 33.5 32.0 - MELINA DOV 35.7 gm/dL [facility] LABOR[facility]ORY Platelets 164 145 - 357 [facility] x10(3)/[facility] LABORATORY RDWSD 47.6 (H) 36.0 - MELINA DOV 45.0 [facility] LABORATORY RDWCV 14.7 (H) 11.4 - [facility] 13.8 % [facility] LABORATORY MPV 11.9 7.6 - 12.9 [facility] LABORATORY nRBC % Auto 0.0 % [facility] LABORATORY nRBC Abs Auto 0.000 0.000 - [facility] DOV 0.000 [facility] x10(3)/[facility] LABORATORY Specimen Anatomical Collection Method Collection Time Receive d Time (Source) Location / / Volume Laterality Blood specimen 12/06/2019 3:36 AM 020 3:45 (specimen) EDT AM EDT Resulting Agency Comment Spec In Lab Gretchen Yoon MD HEMATOLOGY ORDERABLES Performing Organization Address City/[facility]/ZIP Code Phon e Number [address] (ABNORMAL) Differential, Automated (12/05/2019 10:52 PM EDT) Patholo gist Method Time Signature Neutrophils % 61.9 % [facility] LABORATORY Neutr Abs (ANC) 6.02 1.70 - [facility] 6.10 [facility] x10(3)/[facility] LABORATORY Lymphocytes % 22.4 % [facility] LABORATORY Lymphocytes Abs 2.2 0.9 - 3.2 [facility] x10(3)/[facility] LABORATORY Monocytes % 10.4 % [facility] LABORATORY Monocyte Abs 1.0 (H) 0.3 - 0.9 [facility] x10(3)/[facility] LABORATORY Eosinophils % 4.1 % [facility] LABORATORY Eosinophils Abs 0.4 0.0 - 0.4 [facility] x10(3)/[facility] LABORATORY Basophils % 0.7 % [facility] LABORATORY Basophils Abs 0.1 0.0 - 0.1 [facility] x10(3)/[facility] [...] Gran Abs 0.05 (H) 0.00 - 0.04 x10(3)/[facility] LABORATORY Specimen Anatomical Collection Method Collection Time Receive d Time (Source) Location / / Volume Laterality Blood specimen 12/05/2019 10:52 0 (specimen) PM EDT 10:59 PM EDT Resulting Agency Comment Spec In Lab Mandi Barrera MD HEMATOLOGY ORDERABLES Performing Organization Address City/State/[place] [address] (ABNORMAL) Hemogram (12/05/2019 10:52 PM EDT) Analysis Performed At [facility] logist Time Signature WBC 9.7 (H) 4.0 - 9.5 [facility] x10(3)/[facility] LABORATORY RBC 4.07 (L) 4.58 - M[place] DOV 5.54 [facility] x10(6)/[facility] LABORATORY Hemoglobin 11.9 (L) 13.7 - [place] 16.5 gm/dL [facility] LABORATORY Hematocrit 36.4 (L) 40.5 - [place] 48.5 % [facility] MCV 89.4 82.9 - [facility] 93[facility]1 [facility] LABORATORY MCH 29.2 27.5 - MELINA DOV 32.1 pg [facility] LABORATORY MCHC 32.7 32.0 - MELINA DOV 35.7 gm/dL [facility] LABOR[facility]ORY Platelets 167 145 - 357 [facility] x10(3)/[facility] LABORATORY RDWSD 47.7 (H) 36.0 - [facility] 45.0 [facility] LABORATORY RDWCV 14.6 (H) 11.4 - [facility] 13.8 % [facility] LABORATORY MPV 12.1 7.6 - 12.9 [facility] LABORATORY nRBC % Auto 0.0 % [facility] LABORATORY nRBC Abs Auto 0.000 0.000 - [facility] 0.000 [facility] x10(3)/[facility] LABORATORY Specimen Anatomical Collection Method Collection Time Receive d Time (Source) Location / / Volume Laterality Blood specimen 12/05/2019 10:52 0 (specimen) PM EDT 10:59 PM EDT Resulting Agency Comment Spec In Lab Mandi Barrera MD HEMATOLOGY ORDERABLES Performing Organization Address City/State/[place] [address] Heparin (unfractionated) Level (12/05/2019 10:52 PM EDT) P athologist Signature Heparin UFH <0.04 IU/mL [facility] LABORATORY Comment: Guidelines for therapeutic [...] Organization Address City/State/Z[place] [address] MRI Brain wwo Contrast [...] below. ? Electronically signed by: Merari Collins [facility] ([phone]), at 12/05/2019 10:02 PM Narrative 12/05/2019 10:02 [...] 4.0 - 9.5 [facility] x10(3)/[facility] LABORATORY RBC 4.17 (L) 4.58 - [facility] 5.54 [facility] x10(6)/[facility] LABORATORY Hemoglobin 12.4 (L) 13.7 - [facility] 16.5 gm/dL [facility] LABOR[facility]ORY Hematocrit 37.0 (L) 40.5 - [facility] 48.5 % [facility]ORY MCV 88.7 82.9 - [facility] 93[facility]1 [facility] LABORATORY MCH 29.7 27.5 - [facility] 32.1 pg [facility] MCHC 33.5 32.0 - [facility] 35.7 gm/dL [facility] LABOR[facility]ORY Platelets 173 145 - 357 [facility] x10(3)/[facility] LABORATORY RDWSD 47.3 (H) 36.0 - [facility] 45.0 [facility] LABORATORY RDWCV 14.6 (H) 11.4 - [facility] 13.8 % [facility] LABORATORY MPV 12.1 7.6 - 12.9 [facility] LABORATORY nRBC % Auto 0.0 % [facility] LABORATORY nRBC Abs Auto 0.000 0.000 - [facility] 0.000 [facility] x10(3)/[facility] LABORATORY Specimen Anatomical Collection Method Collection Time Receive d Time (Source) Location / / Volume Laterality Blood specimen 12/05/2019 1:00 PM 020 1:13 (specimen) EDT PM EDT Resulting Agency Comment Spec In Lab Gretchen Yoon MD HEMATOLOGY ORDERABLES Performing Organization Address City/State/[place] [address] EKG 12 Lead (12/05/2019 10:52 AM EDT) Component Value Ref Range Test Analysis Performed Pathologis t Method Time At Signature Ventricular rate 72 BPM MUSE SYSTEM Atrial Rate 72 BPM MUSE SYSTEM P-R Interval 138 ms MUSE SYSTEM QRS Duration 96 ms MUSE SYSTEM Q-T Interval 396 ms MUSE SYSTEM QTC Calculated 433 ms MUSE SYSTEM (Bezet) Calculated P [place] 65 degrees MUSE SYSTEM Calculated R [place] 13 degrees MUSE SYSTEM Calculated T [place] 0 degrees MUSE SYSTEM INTERPRETATION Sinus rhythm Occasional Premature ventricular complexe s MUSE SYSTEM Possible Inferior infarct (cited on or before 29-NOV-2019) Abnormal ECG When compared with ECG of 04-DEC-2019 10:43, Sinus rhythm has replaced Atrial fibrillation Vent. rate has decreased BY ??86 BPM Confirmed by MD Ceja Daniel ([id number]) on 12/05/2019 3:55:22 PM Specimen Anatomical Collection Method Collection Time Receive d Time (Source) Location / / Volume Laterality 12/05/2019 10:52 12/05/2019 3:55 AM EDT PM EDT Paris Lagos MD ECG ORDERABLES Performing Organization Address City/State/ZIP Code Phon e Number MUSE SYSTEM Duplex Study for DVT, Bilat legs (12/05/2019 7:00 AM EDT) Component Value Ref Test Analysis Performed At [facility] Range Method Time Signature VB Text Department: Vascular Surgery Lab VASCUBASE Report Patient: [id number] (ANGEL LUIS SALINAS) CPT: 49504 ICD10: I26.99 Referring Physician: GRETCHEN YOON ?? [...] [facility] mmol/L [facility] LABORATORY Specimen Anatomical Collection Method Collection Time Receive d Time (Source) Location / / Volume Laterality Blood specimen 12/05/2019 4:18 AM 020 4:31 (specimen) EDT AM EDT Resulting Agency Comment Spec In Lab Gretchen Yoon MD CHEMISTRY ORDERABLES Performing Organization Address City/[facility]/[place]IP [facility] [place] [address] (ABNORMAL) BMP w/fasting Glucose (12/05/2019 4:18 AM EDT) P athologist Signature Glucose 104 (H) 65 - 99 [facility] Fasting mg/dL [facility] LABORATORY Comment: ?Fasting* Glucose Interpretive C [...] LABORATORY Creatinine 1.02 0.80 - 1.50 mg/dL [facility] LABORATORY Sodium 136 135 - 145 [...] of body mass or the acutely ill. [email or web address]://WinDensity/[facility] eGFR 84 >=60 mL/min/1.73 m?? [facility] LABORATORY Comment: The eGFR was calculated using the CKD-EP I equation. As with all creatinine based estimates of kidney function, eGFR values calculated with the CKD-EPI equation are not accurate in patients wi th acute kidney failure, extremes of body mass or the acutely ill. [email or web address]://WinDensity/[facility] Specimen Anatomical Collection Method Collection Time Receive d Time (Source) Location / / Volume Laterality Blood specimen 12/05/2019 4:18 AM 020 4:31 (specimen) EDT AM EDT Resulting Agency Comment Spec In Lab Gretchen Yoon MD CHEMISTRY ORDERABLES Performing Organization Address City/State/[place] [address] (ABNORMAL) Hemogram (12/05/2019 4:18 AM EDT) Analysis Performed At Patho logist Time Signature WBC 8.6 4.0 - 9.5 [facility] x10(3)/[facility] LABORATORY RBC 4.28 (L) 4.58 - [place] DOV 5.54 [facility] x10(6)/[facility] LABORATORY Hemoglobin 12.4 (L) 13.7 - [facility] 16.5 gm/dL [facility]ORY Hematocrit 37.3 (L) 40.5 - [facility] 48.5 % [facility] LAB[facility]ATORY MCV 87.1 82.9 - [facility] 93.1 [facility] LABORATORY MCH 29.0 27.5 - [facility] 32.1 pg [facility] LAB[facility]AT[facility] MCHC 33.2 32.0 - [facility] 35.7 gm/dL [facility] LAB[facility] Platelets 163 145 - 357 [facility] x10(3)/[facility] LABORATORY RDWSD 46.4 (H) 36.0 - [facility] 45.0 [facility] LABORATORY RDWCV 14.4 (H) 11.4 - [facility] 13.8 % [facility] LABORATORY MPV 11.7 7.6 - 12.9 [facility] LABORATORY nRBC % Auto 0.0 % [facility] LABORATORY nRBC Abs Auto 0.000 0.000 - [facility] 0.000 [facility] x10(3)/[facility] LABORATORY Specimen Anatomical Collection Method Collection Time Receive d Time (Source) Location / / Volume Laterality Blood specimen 12/05/2019 4:18 AM 020 4:31 (specimen) EDT AM EDT Resulting Agency Comment Spec In Lab Gretchen Yoon MD HEMATOLOGY ORDERABLES Performing Organization Address City/State/[place] [address] Cardiac for Morphology [...] For questions regarding this report, please contact [facility] number below. ? Electronically signed by: Roselyn Luciano, [facility] ([phone]), at 12/04/2019 6:16 PM Narrative 12/04/2019 6:16 [...] from neck/greatest puja meter to back wall: AUSTRIAN 91, CAU 13: ??19 mm CORTES ??1, [...] from neck/greatest puja meter to back wall: AUSTRIAN 91, CAU 13: 19 mm CORTES 1, [...] WBC 8.9 4.0 - 9.5 MELINA DOV x10(3)/[facility] LABORATORY RBC 4.69 4.58 - MELINA DOV 5.54 [facility] x10(6)/[facility] LABORATORY Hemoglobin 13.5 (L) 13.7 - MELINA DOV 16.5 gm/dL [facility] LABORATORY Hematocrit 41.7 40.5 - MELINA DOV 48.5 % [facility] LABORATORY MCV 88.9 82.9 - MELINA DOV 93.1 fL [facility] LABORATORY MCH 28.8 27.5 - MELINA DOV 32.1 pg [facility] LABORATORY MCHC 32.4 32.0 - MELINA DOV 35.7 gm/dL [facility] LABORATORY Platelets 196 145 - 357 MELINA DOV x10(3)/[facility] LABORATORY RDWSD 46.7 (H) 36.0 - MELINA MONAE 45.0 [facility] LABORATORY RDWCV 14.5 (H) 11.4 - MELINA MONAE 13.8 % [facility] LABORATORY MPV 12.1 7.6 - 12.9 MELINA MONAE [facility] LABORATORY nRBC % Auto 0.0 % [facility] LABORATORY nRBC Abs Auto 0.000 0.000 - MELINA MONAE 0.000 [facility] x10(3)/[facility] LABORATORY Specimen Anatomical Collection Method Collection Time Receive d Time (Source) Location / / Volume Laterality Blood specimen 12/04/2019 12:55 0 1:06 (specimen) PM EDT PM EDT Resulting Agency Comment Spec In Lab Gretchen Yoon MD HEMATOLOGY ORDERABLES Performing Organization Address City/[facility]/ZIP [place] [address] EKG 12 Lead (12/04/2019 10:43 AM EDT) Component Value Ref Range Test Analysis Performed Pathologis t Method Time At Signature Ventricular rate 158 BPM MUSE SYSTEM Atrial Rate 102 BPM MUSE SYSTEM QRS Duration 92 ms MUSE SYSTEM Q-T Interval 294 ms MUSE SYSTEM QTC Calculated 476 ms MUSE SYSTEM (Bezet) Calculated R [place] 17 degrees MUSE SYSTEM Calculated T [place] 90 degrees MUSE SYSTEM INTERPRETATION Atrial fibrillation with rapid ventricular response MUSE SYSTEM Possible Inferior infarct (cited on or before 29-NOV-2019) Abnormal ECG When compared with ECG of 30-NOV-2019 21:07, Atrial fibrillation has replaced Sinus rhythm Vent. rate has increased BY ??65 BPM Confirmed by MD Brenna, Faustino ([id number]) on 12/05/2019 8:59:44 AM Specimen Anatomical Collection [...] [facility] mmol/L [facility] LABORATORY Specimen Anatomical Collection Method Collection Time Receive d Time (Source) Location / / Volume Laterality Blood specimen 12/04/2019 4:28 AM 020 4:40 (specimen) EDT AM EDT Resulting Agency Comment Spec In Lab Gretchen Yoon MD CHEMISTRY ORDERABLES Performing Organization Address City/State/[place] [address] (ABNORMAL) BMP w/fasting Glucose (12/04/2019 4:28 AM EDT) athologist Signature Glucose 108 (H) 65 - 99 [facility] Fasting mg/dL [facility] LABORATORY Comment: ?Fasting* Glucose Interpretive C [...] LABORATORY Creatinine 0.89 0.80 - 1.50 mg/dL [facility] LABORATORY Sodium 135 135 - 145 [...] of body mass or the acutely ill. http://WinDensity/[facility] eGFR 98 >=60 mL/min/1.73 m?? [facility] LABORATORY Comment: The eGFR was calculated using the CKD-EP I equation. As with all creatinine based estimates of kidney function, eGFR values calculated with the CKD-EPI equation are not accurate in patients wi th acute kidney failure, extremes of body mass or the acutely ill. http://WinDensity/[facility] Specimen Anatomical Collection Method Collection Time Receive d Time (Source) Location / / Volume Laterality Blood specimen 12/04/2019 4:28 AM 020 4:40 (specimen) EDT AM EDT Resulting Agency Comment Spec In Lab Gretchen Yoon MD CHEMISTRY ORDERABLES Performing Organization Address City/State/[place] [address] (ABNORMAL) Hemogram (12/04/2019 4:28 AM EDT) Analysis Performed At Patho logist Time Signature WBC 7.8 4.0 - 9.5 [facility] x10(3)/[facility] LABORATORY RBC 4.10 (L) 4.58 - [facility] 5.54 [facility] x10(6)/[facility] LABORATORY Hemoglobin 12.0 (L) 13.7 - [facility] 16.5 gm/dL [facility] LABORATORY Hematocrit 36.5 (L) 40.5 - [facility] 48.5 % [facility] LABORATORY MCV 89.0 82.9 - [facility] 93.1 fL [facility] LABORATORY MCH 29.3 27.5 - MELINA MONAE 32.1 pg [facility] LABORATORY MCHC 32.9 32.0 - MELINA MONAE 35.7 gm/dL [facility] LABORATORY Platelets 151 145 - 357 MELINA VILLANUEVACK x10(3)/[facility] LABORATORY RDWSD 46.9 (H) 36.0 - MELINA MONAE 45.0 [facility] LABORATORY RDWCV 14.4 (H) 11.4 - MELINA MONAE 13.8 % [facility] LABORATORY MPV 12.2 7.6 - 12.9 MELINA MONAE fL [facility] LABORATORY nRBC % Auto 0.0 % [facility] LABORATORY nRBC Abs Auto 0.000 0.000 - MELINA MONAE 0.000 [facility] x10(3)/[facility] LABORATORY Specimen Anatomical Collection Method Collection Time Receive d Time (Source) Location / / Volume Laterality Blood specimen 12/04/2019 4:28 AM 020 4:40 (specimen) EDT AM EDT Resulting Agency Comment Spec In Lab Gretchen Yoon MD HEMATOLOGY ORDERABLES Performing Organization Address City/[facility]/ZIP Code Phon e Number [address] Potassium (12/03/2019 7:55 PM EDT) athologist Signature Potassium 3.9 3.5 - 5.0 [facility]/L [facility] LABORATORY Comment: Please note: ??Patients with [...] CHEMISTRY ORDERABLES Performing Organization Address City/[facility]/ZIP [facility] [place]on [place] Number [address] Potassium (12/03/2019 1:57 PM EDT) athologist Signature Potassium 3.7 3.5 - 5.0 [facility] mmol/L [facility] LABORATORY Comment: Please note: ??Patients with [...] Organization Address City/State/[place] [address] (ABNORMAL) Hemogram (12/03/2019 1:57 PM EDT) Analysis Performed At Patho logist Time Signature WBC 8.8 4.0 - 9.5 MELINA DOV x10(3)/[facility] LABORATORY RBC 4.27 (L) 4.58 - MELINA DOV 5.54 [facility] x10(6)/[facility] LABORATORY Hemoglobin 12.5 (L) 13.7 - MELINA DOV 16.5 gm/dL [facility] LABORATORY Hematocrit 37.5 (L) 40.5 - MELINA DOV 48.5 % [facility] LABORATORY MCV 87.8 82.9 - MELINA DOV 93.1 [facility] LABORATORY MCH 29.3 27.5 - MELINA DOV 32.1 pg [facility] LABORATORY MCHC 33.3 32.0 - MELINA DOV 35.7 gm/dL [facility] LABORATORY Platelets 158 145 - 357 MELINA DOV x10(3)/[facility] LABORATORY RDWSD 46.9 (H) 36.0 - MELINA DOV 45.0 [facility] LABORATORY RDWCV 14.5 (H) 11.4 - MELINA DOV 13.8 % [facility] LABORATORY MPV 12.2 7.6 - 12.9 MELINA DOV [facility] LABORATORY nRBC % Auto 0.0 % [facility] LABORATORY nRBC Abs Auto 0.000 0.000 - [facility]ubeDOV 0.000 [facility] x10(3[facility] LABORATORY Specimen Anatomical Collection Method Collection Time Receive d Time (Source) Location / / Volume Laterality Blood specimen 12/03/2019 1:57 PM 020 2:21 (specimen) EDT PM EDT Resulting Agency Comment Spec In Lab Gretchen Yoon MD HEMATOLOGY ORDERABLES Performing Organization Address City/State/ZIP Code Phon e Number [address] Magnesium (12/03/2019 4:02 AM EDT) P athologist Signature Magnesium 0.79 0.69 - 1.07 [facility] mmol/L [facility] LABORATORY Specimen Anatomical Collection Method Collection Time Receive d Time (Source) Location / / Volume Laterality Blood specimen 12/03/2019 4:02 AM 020 4:16 (specimen) EDT AM EDT Resulting Agency Comment Spec In Lab Gretchen Yoon MD CHEMISTRY ORDERABLES Performing Organization Address City/State/Z[place] [address] (ABNORMAL) BMP w/fasting Glucose (12/03/2019 4:02 AM EDT) P athologist Signature Glucose 100 (H) 65 - 99 [facility] Fasting mg/dL [facility] LABORATORY Comment: ?Fasting* Glucose Interpretive C [...] LABORATORY Creatinine 0.95 0.80 - 1.50 mg/dL [facility] LABORATORY Sodium 136 135 - 145 [...] of body mass or the acutely ill. http://WinDensity/[facility] eGFR 92 >=60 mL/min/1.73 m?? [facility] LABORATORY Comment: The eGFR was calculated using the CKD-EP I equation. As with all creatinine based estimates of kidney function, eGFR values calculated with the CKD-EPI equation are not accurate in patients wi th acute kidney failure, extremes of body mass or the acutely ill. http://WinDensity/DHnkf Specimen Anatomical Collection Method Collection Time Receive d Time (Source) Location / / Volume Laterality Blood specimen 12/03/2019 4:02 AM 020 4:16 (specimen) EDT AM EDT Resulting Agency Comment Spec In Lab Gretchen Yoon MD CHEMISTRY ORDERABLES Performing Organization Address City/State/[place] [address] (ABNORMAL) Hemogram (12/03/2019 4:02 AM EDT) Analysis Performed At Patho logist Time Signature WBC 9.1 4.0 - 9.5 [facility] x10(3)/[facility] LABORATORY RBC 4.01 (L) 4.58 - MELINA MARSHDOV 5.54 [facility] x10(6)/[facility] LABORATORY Hemoglobin 11.8 (L) 13.7 - [facility] 16.5 gm/dL [facility] LABORATORY Hematocrit 35.6 (L) 40.5 - [facility] 48.5 % [facility] LABORATORY MCV 88.8 82.9 - [facility] 93.1 [facility] LABORATORY MCH 29.4 27.5 - [facility] 32.1 pg [facility] LABORATORY MCHC 33.1 32.0 - [facility] 35.7 gm/dL [facility] LABORATORY Platelets 130 (L) 145 - 357 [facility] x10(3)/[facility] LABORATORY RDWSD 46.6 (H) 36.0 - [facility] 45.0 [facility] LABORATORY RDWCV 14.4 (H) 11.4 - [facility] 13.8 % [facility] LABORATORY MPV 12.4 7.6 - 12.9 [facility] LABORATORY nRBC % Auto 0.0 % [facility] LABORATORY nRBC Abs Auto 0.000 0.000 - [facility] 0.000 [facility] x10(3)/[facility] LABORATORY Specimen Anatomical Collection Method Collection Time Receive d Time (Source) Location / / Volume Laterality Blood specimen 12/03/2019 4:02 AM 020 4:16 (specimen) EDT AM EDT Resulting Agency Comment Spec In Lab Gretchen Yoon MD HEMATOLOGY ORDERABLES Performing Organization Address City/State/[place] [address] XR Chest One View [...] below. ? Electronically signed by: Ashly Marley [facility] ([phone]), at 12/02/2019 1:35 PM Narrative 12/02/2019 1:35 [...] number below. Electronically signed by: Ashly Marley [facility] ([phone]), at 12/02/2019 1:35 PM Gretchen Yoon MD IMG DX ORDERABLES (ABNORMAL) Hemogram (12/02/2019 12:50 PM EDT) Analysis Performed At Patho logist Time Signature WBC 10.6 (H) 4.0 - 9.5 [facility](3[facility] LABORATORY RBC 4.00 (L) 4.58 - [facility] DOV 5.54 [facility] x10(6)/[facility] LABORATORY Hemoglobin 11.9 (L) 13.7 - [facility] 16.5 gm/dL [facility] LABORATORY Hematocrit 35.7 (L) 40.5 - [facility] 48.5 % [facility] LABORATORY MCV 89.3 82.9 - [facility] 93.1 [facility] LABORATORY MCH 29.8 27.5 - [facility] 32.1 pg [facility] LABORATORY MCHC 33.3 32.0 - [facility] 35.7 gm/dL [facility] LABORATORY Platelets 120 (L) 145 - 357 [facility] x10(3)/[facility] LABORATORY RDWSD 47.5 (H) 36.0 - [facility] 45.0 [facility] LABORATORY RDWCV 14.6 (H) 11.4 - [facility] 13.8 % [facility] LABORATORY MPV 12.0 7.6 - 12.9 [facility] LABORATORY nRBC % Auto 0.0 % [facility] LABORATORY nRBC Abs Auto 0.000 0.000 - [facility] 0.000 [facility] x10(3)/[facility] LABORATORY Specimen Anatomical Collection Method Collection Time Receive d Time (Source) Location / / Volume Laterality Blood specimen 12/02/2019 12:50 0 1:22 (specimen) PM EDT PM EDT Resulting Agency Comment Spec In Lab Gretchen Yoon MD HEMATOLOGY ORDERABLES Performing Organization Address City/State/[place] [address] Blue Tube HOLD (12/02/2019 4:55 AM EDT) P athologist Signature Blue Hold Sample in [facility] lab. [facility] LABORATORY Specimen Anatomical Collection Method Collection Time Receive d Time (Source) Location / / Volume Laterality Blood specimen Venous Draw / 12/02/2019 4:55 AM 2019 5:03 (specimen) Unknown EDT AM EDT Darrell Glasgow MD HEMATOLOGY ORDERABLES Performing Organization Address City/State/ZIP Code Phon e Number [address] Magnesium (12/02/2019 4:55 AM EDT) athologist Signature Magnesium 0.85 0.69 - 1.07 [facility] mmol/L [facility] LABORATORY Specimen Anatomical Collection Method Collection Time Receive d Time (Source) Location / / Volume Laterality Blood specimen 12/02/2019 4:55 AM 020 5:02 (specimen) EDT AM EDT Resulting Agency Comment Spec In Lab Gretchen Yoon MD CHEMISTRY ORDERABLES Performing Organization Address City/State/Z[place] [address] (ABNORMAL) BMP w/fasting Glucose (12/02/2019 4:55 AM EDT) athologist Signature Glucose 114 (H) 65 - 99 [facility] Fasting mg/dL [facility] LABORATORY Comment: ?Fasting* Glucose Interpretive C [...] LABORATORY Creatinine 0.93 0.80 - 1.50 mg/dL [facility] LABORATORY Sodium 135 135 - 145 [...] of body mass or the acutely ill. http://WinDensity/[facility] eGFR 94 >=60 mL/min/1.73 m?? [facility] LABORATORY Comment: The eGFR was calculated using the CKD-EP I equation. As with all creatinine based estimates of kidney function, eGFR values calculated with the CKD-EPI equation are not accurate in patients wi th acute kidney failure, extremes of body mass or the acutely ill. http://WinDensity/[facility]nkf Specimen Anatomical Collection Method Collection Time Receive d Time (Source) Location / / Volume Laterality Blood specimen 12/02/2019 4:55 AM 020 5:02 (specimen) EDT AM EDT Resulting Agency Comment Spec In Lab Gretchen Yoon MD CHEMISTRY ORDERABLES Performing Organization Address City/State/[place] [address] (ABNORMAL) Hemogram (12/02/2019 4:55 AM EDT) Analysis Performed At Patho logist Time Signature WBC 9.3 4.0 - 9.5 [facility] x[facility](3[facility] LABORATORY RBC 3.71 (L) 4.58 - MELINA DOV 5.54 [facility] x10(6)/[facility] LABORATORY Hemoglobin 10.8 (L) 13.7 - [facility] 16.[facility] gm/dL [facility] LABORATORY Hematocrit 33.1 (L) 40.5 - [facility] 48.5 % [facility] LABORATORY MCV 89.2 82.9 - [facility] 93.1 [facility] LABORATORY MCH 29.1 27.5 - [facility] 32.1 pg [facility] LABORATORY MCHC 32.6 32.0 - [facility] 35.7 gm/dL [facility] LABORATORY Platelets 93 (L) 145 - 357 [facility] x10(3)/[facility] LABORATORY RDWSD 47.1 (H) 36.0 - [facility] 45.0 [facility] LABORATORY RDWCV 14.6 (H) 11.4 - [facility] 13.8 % [facility] LABORATORY MPV 11.7 7.6 - 12.9 [facility] LABORATORY nRBC % Auto 0.0 % [facility] LABORATORY nRBC Abs Auto 0.000 0.000 - [facility] 0.000 [facility] x10(3)/[facility] LABORATORY Specimen Anatomical Collection Method Collection Time Receive d Time (Source) Location / / Volume Laterality Blood specimen 12/02/2019 4:55 AM 020 5:02 (specimen) EDT AM EDT Resulting Agency Comment Spec In Lab Gretchen Yoon MD HEMATOLOGY ORDERABLES Performing Organization Address City/State/[place] [address] Transfuse 1 unit platelets, [...] For questions regarding this report, please contact [facility] number below. ? Electronically signed by: Angel Luis Barboza MD, [facility] ([phone]), at 12/01/2019 8:02 PM Narrative 12/01/2019 8:02 [...] For questions regarding this report, please contact [facility] number below. Electronically signed by: Angel Luis Barboza MD, [facility] ([phone]), at 12/01/2019 8:02 PM Gretchen Yoon MD IMG MRI ORDERABLES Prepare Platelets, Apheresis (12/01/2019 6:20 PM EDT) P athologist Signature Dispensed? Yes [facility] LABORATORY Specimen Anatomical Collection Method Collection Time Receive d Time (Source) Location / / Volume Laterality Blood specimen 12/01/2019 6:20 PM 020 6:18 (specimen) EDT PM EDT Gretchen Yoon MD BLOOD BANK ORDERABLES Performing Organization Address City/[facility]/[place] [address] Duplex for DVT, Arm, Unilat (12/01/2019 5:08 PM EDT) Component Value Ref Test Analysis Performed At Patholo gist Range Method Time Signature VB Text Department: Vascular Surgery Lab VASCUBASE Report Patient: [id number] (ANGEL LUIS SALINAS) CPT: 04006 ICD10: R60.0 Referring Physician: GRETCHEN YOON ?? [...] For questions regarding this report, please contact [facility] number below. ? Electronically signed by: Merari Collins, [facility] ([phone]), at 12/01/2019 3:53 PM Narrative 12/01/2019 3:53 PM EDT EXAMINATION: CT HEAD WO CONTRAST (GENERIC) CLINICAL HISTORY: Headache, intracranial hemorrhage suspected Serial CT scan: please assess for propag ation of known ICH noted on prior Head CT/imaging. TECHNIQUE: CT head performed without intravenous co ntrast administration. COMPARISON: Head CT 11/30/2019. CT angiogram of the [place] 11/01. FINDINGS: Ventricles are normal in size. Basal cis terns are patent. Unchanged hyperdense 2.3 x 0.7 x 0.6 cm tubular hemorrhage projecting along the course of the left optic tract (axial se [facility] 2 image 16), consistent with [...] Head CT 11/30/2019. CT angiogram of the [place] [facility] [place] 11/01. FINDINGS: Ventricles are normal [...] Scan, Peripheral Blood (12/01/2019 12:51 PM EDT) [facility] Method Time Signature Plat Estimate Decreased [facility] LABORATORY RBC Morphology Normal [facility] Giant Less than 1 /HPF [facility] Platelets [facility] LABORATORY Specimen Anatomical Collection Method Collection Time Receive d Time (Source) Location / / Volume Laterality Blood specimen 12/01/2019 12:51 0 1:05 (specimen) PM EDT PM EDT Resulting Agency Comment Spec In Lab Riki Stevens MD HEMATOLOGY ORDERABLES Performing Organization Address City/State/Z[place] [address] (ABNORMAL) Differential, Automated (12/01/2019 12:51 PM EDT) [facility] Method Time Signature Neutrophils % 74.9 % [facility] LABORATORY Neutr Abs (ANC) 6.34 (H) 1.70 - [facility] 6.10 [facility] x10(3)/[facility] LABORATORY Lymphocytes % 11.4 % [facility] LABORATORY Lymphocytes Abs 1.0 0.9 - 3.2 [facility] x10(3)/[facility] LABORATORY Monocytes % 12.4 % [facility] LABORATORY Monocyte Abs 1.0 (H) 0.3 - 0.9 [facility] x10(3)/[facility] LABORATORY Eosinophils % 0.4 % [facility] LABORATORY Eosinophils Abs 0.0 0.0 - 0.4 [facility] x10(3)/[facility] LABORATORY Basophils % 0.4 % [facility] LABORATORY Basophils Abs 0.0 0.0 - 0.1 [facility] x10(3)/[facility] LABORATORY Immature Gran % 0.50 % [facility] [...] Gran Abs 0.04 0.00 - 0.04 x10(3)/[facility] LABORATORY Specimen Anatomical Collection Method Collection Time Receive d Time (Source) Location / / Volume Laterality Blood specimen 12/01/2019 12:51 0 1:05 (specimen) PM EDT PM EDT Resulting Agency Comment Spec In Lab Riki Stevens MD HEMATOLOGY ORDERABLES Performing Organization Address City/State/ZIP Code Phon e Number [place] [id number] HOS[address] LAB[address]ORY Drive (ABNORMAL) Hemogram (12/01/2019 12:51 PM EDT) Analysis Performed At Patho logist Time Signature WBC 8.4 4.0 - 9.5 [facility] x[facility](3[facility] LABORATORY RBC 3.69 (L) 4.58 - [facility] 5.54 [facility] x10(6)/[facility] LABORATORY Hemoglobin 10.8 (L) 13.7 - [facility] 16.5 gm/dL [facility] LABORATORY Hematocrit 32.4 (L) 40.5 - [facility] 48.5 % [facility] LABORATORY MCV 87.8 82.9 - [facility] 93.1 [facility] LABORATORY MCH 29.3 27.5 - MELINA DOV 32.1 pg [facility] LABORATORY MCHC 33.3 32.0 - [facility] DOV 35.7 gm/dL [facility] LABORATORY Platelets 72 (L) 145 - 357 [facility](3[facility] LABORATORY RDWSD 47.2 (H) 36.0 - [facility] 45.0 [facility] LABORATORY RDWCV 14.6 (H) 11.4 - [facility] DOV 13.8 % [facility] LABORATORY MPV 12.2 7.6 - 12.9 [facility] LABORATORY nRBC % Auto 0.0 % [facility] LABORATORY nRBC Abs Auto 0.000 0.000 - [facility] 0.000 [facility] x10(3)/[facility] LABORATORY Specimen Anatomical Collection Method Collection Time Receive d Time (Source) Location / / Volume Laterality Blood specimen 12/01/2019 12:51 0 1:05 (specimen) PM EDT PM EDT Resulting Agency Comment Spec In Lab Riki Stevens MD HEMATOLOGY ORDERABLES Performing Organization Address City/State/ZIP Code Phon e Number [address] (ABNORMAL) Coox2 (12/01/2019 11:42 AM EDT) Analysis Performed At Patho logist Time Signature pO2 Coox 30 mmHg [facility] LABORATORY Hgb Blood Gas 11.6 (L) 13.7 - [facility] 16.5 gm/dL [facility] LABORATORY O2HB Coox 60.8 % [facility] LABORATORY COHB Coox 0.6 % [facility] LABORATORY Comment: Nonsmokers: 0.5-1.5% COHB Smokers: Variable, but usually less than 10% Toxic: 20-30% COHB Lethal: Greater than 60% COHB METHB Coox 0.6 <=1.5 % [facility] LABORATORY Source Coox Mixed Venous [facility]OR[facility]ORY Specimen Anatomical Collection Method Collection Time Receive d Time (Source) Location / / Volume Laterality Blood specimen 12/01/2019 11:42 0 (specimen) AM EDT 11:42 AM EDT Gretchen Yoon MD CHEMISTRY ORDERABLES Performing Organization Address City/State/[place] [address] Sedimentation rate (12/01/2019 3:55 AM EDT) P athologist Signature Sed Rate 25 3 - 46 [facility] mm/hr [facility] LABORATORY Comment: Effective June 11, 2019 [...] HEMATOLOGY ORDERABLES Performing Organization Address City/[facility]/[place]IP [place] [address] (ABNORMAL) CRP, acute inflammation [...] CHEMISTRY ORDERABLES Performing Organization Address City/[facility]/ZIP Code Phon e Number [address] ABORH Recheck Status (12/01/2019 3:55 AM EDT) [facility] Method Time Signature ABORH Recheck Order Placed [facility] LABORATORY ABORH Type Complete [facility] LABORATORY Specimen Anatomical Collection Method Collection Time Receive d Time (Source) Location / / Volume Laterality Blood specimen 12/01/2019 3:55 AM 020 4:15 (specimen) EDT AM EDT Resulting Agency Comment Spec In Lab Lewis Gee MD BLOOD BANK ORDERABLES Performing Organization Address City/[facility]/[place] [address] Antibody screen (12/01/2019 3:55 AM EDT) Patholo gist Method Time Signature Ab Screen Negative [facility] LABORATORY Expires at 12/04/2019 [facility] [id number] on: [facility] LABORATORY Specimen Anatomical Collection Method Collection Time Receive d Time (Source) Location / / Volume Laterality Blood specimen 12/01/2019 3:55 AM 020 4:15 (specimen) EDT AM EDT Resulting Agency Comment Spec In Lab Lewis Gee MD BLOOD BANK ORDERABLES Performing Organization Address City/State/[place] [address] ABO/Rh Typing (12/01/2019 3:55 AM EDT) athologist Signature ABORh Type AB Pos [facility] LABORATORY Specimen Anatomical Collection Method Collection Time Receive d Time (Source) Location / / Volume Laterality Blood specimen 12/01/2019 3:55 AM 020 4:15 (specimen) EDT AM EDT Resulting Agency Comment Spec In Lab Lewis Gee MD BLOOD BANK ORDERABLES Performing Organization Address City/[facility] [place] [address] (ABNORMAL) Troponin (12/01/2019 3:55 AM EDT) athologist Signature Troponin-T 4.35 (H) 0.00 - [facility] 0.00 ng/mL [facility] LABORATORY Comment: result rechecked-slw The 99th [...] additional sample may be indicated. Reference: Third [place] Definition of Myocardial Infarction. Journal of the [place] [employer] 2012;60:1581-98 Specimen Anatomical Collection Method Collection Time Receive d Time (Source) Location / / Volume Laterality Blood specimen 12/01/2019 3:55 AM 020 4:00 (specimen) EDT AM EDT Resulting Agency Comment Spec In Lab Gretchen Yoon MD CHEMISTRY ORDERABLES Performing Organization Address City/State/ZIP Code Phon e Number [address] Magnesium (12/01/2019 3:55 AM EDT) P athologist Signature Magnesium 0.96 0.69 - 1.07 [facility] mmol/L [facility] LABORATORY Specimen Anatomical Collection Method Collection Time Receive d Time (Source) Location / / Volume Laterality Blood specimen 12/01/2019 3:55 AM 020 4:00 (specimen) EDT AM EDT Resulting Agency Comment Spec In Lab Gretchen Yoon MD CHEMISTRY ORDERABLES Performing Organization Address City/[facility]/ZIP [place] [address] (ABNORMAL) BMP w/fasting Glucose (12/01/2019 3:55 AM EDT) P athologist Signature Glucose 148 (H) 65 - 99 [facility] Fasting mg/dL [facility] LABORATORY Comment: ?Fasting* Glucose Interpretive C [...] LABORATORY Creatinine 0.96 0.80 - 1.50 mg/dL [facility] LABORATORY Sodium 132 (L) 135 - [...] of body mass or the acutely ill. [email or web address]/[facility] eGFR 91 >=60 mL/min/1.73 m?? [facility]OR[facility]ORY Comment: The eGFR was calculated using the CKD-EP I equation. As with all creatinine based estimates of kidney function, eGFR values calculated with the CKD-EPI equation are not accurate in patients wi th acute kidney failure, extremes of body mass or the acutely ill. [email or web address] Specimen Anatomical Collection Method Collection Time Receive d Time (Source) Location / / Volume Laterality Blood specimen 12/01/2019 3:55 AM 020 4:00 (specimen) EDT AM EDT Resulting Agency Comment Spec In Lab Gretchen Yoon MD CHEMISTRY ORDERABLES Performing Organization Address City/State/[place] [address] (ABNORMAL) Hemogram (12/01/2019 3:55 AM EDT) Analysis Performed At [facility]o [facility] Time Signature WBC 11.0 (H) 4.0 - 9.5 [facility] x10(3)/[facility] LABORATORY RBC 3.46 (L) 4.58 - [facility] 5.54 [facility] x10(6)/[facility] LABORATORY Hemoglobin 10.2 (L) 13.7 - [facility] 16.5 gm/dL [facility] LABORATORY Hematocrit 31.2 (L) 40.5 - [facility] 48.5 % [facility] LABORATORY MCV 90.2 82.9 - [facility] 93.1 [facility] LABORATORY MCH 29.5 27.5 - [facility] 32.1 pg [facility] LABORATORY MCHC 32.7 32.0 - [facility] 35.7 gm/dL [facility] LABORATORY Platelets 98 (L) 145 - 357 [facility] x10(3)/[facility] LABORATORY RDWSD 47.9 (H) 36.0 - [facility] 45.0 [facility] LABORATORY RDWCV 14.6 (H) 11.4 - [facility] 13.8 % [facility] LABORATORY MPV 12.3 7.6 - 12.9 [facility] LABORATORY nRBC % Auto 0.0 % [facility] LABORATORY nRBC Abs Auto 0.000 0.000 - [facility] 0.000 [facility] x10(3)/[facility] LABORATORY Specimen Anatomical Collection Method Collection Time Receive d Time (Source) Location / / Volume Laterality Blood specimen 12/01/2019 3:55 AM 020 4:00 (specimen) EDT AM EDT Resulting Agency Comment Spec In Lab Gretchen Yoon MD HEMATOLOGY ORDERABLES Performing Organization Address City/State/[place] [address] (ABNORMAL) BLOOD GAS 2 ARTERIAL (11/30/2019 10:39 PM EDT) Analysis Performed At [facility] Time Signature pH Art 7.45 7.35 - [facility] 7.45 [facility] LABORATORY pCO2 Art 23 (L) 35 - 45 [facility] LABORATORY pO2 Art 76 (L) 85 - 104 [facility] LABORATORY HCO3 Art 15.3 (L) 20.0 - [facility] 26.0 [facility] mmol/[facility] LABORATORY BE Art -8.7 (L) -3.0 - 3.0 [facility] mmol/L [facility] LABORATORY Hgb Blood Gas 11.7 (L) 13.7 - [facility] 16.5 gm/dL [facility] O2HB Art 94.2 94.0 - [facility] 97.0 % [facility] LABORATORY COHB Art 0.5 % [facility] FIO2 Art 100 % [facility] LABORATORY PF Ratio Art 76 [facility] LABORATORY Specimen Anatomical Collection Method Collection Time Receive d Time (Source) Location / / Volume Laterality Blood specimen 11/30/2019 10:39 0 (specimen) PM EDT 10:39 PM EDT Gretchen Yoon MD CHEMISTRY ORDERABLES Performing Organization Address City/State/[place] [address] EKG 12 Lead (11/30/2019 [...] (Bezet) Calculated P 12 degrees MUSE SYSTEM [place] Calculated R 19 degrees MUSE SYSTEM [place] Calculated T -47 degrees MUSE SYSTEM [place] INTERPRETATION Sinus rhythm with Premature supraventricular complexes [...] ECG ORDERABLES Performing Organization Address City/[facility]/ZIP Code Phon e Number MUSE SYSTEM (ABNORMAL) Urinalysis Microscopic Exam (11/30/2019 8:40 PM EDT) P athologist Signature RBC UA 27 (H) 0 - 3 /HPF [facility] LABORATORY WBC UA 4 (H) 0 - 3 /HPF [facility] LABOR[facility]ORY Hyaline Cast 3 (H) 0 - 2 /LPF [facility] LABORATORY Specimen (Source) Anatomical Collection Method Collection Time Re ceived Time Location / / Volume Laterality Urine specimen 11/30/2019 8:40 11/30/2019 obtained via PM EDT 10:51 PM EDT indwelling urinary catheter (specimen) Resulting Agency Comment Spec In Lab Rossy Winn MD URINE ORDERABLES Performing Organization Address City/[facility]/ZIP Code Phon e Number [place] [phone]OS[address]ORY Drive (ABNORMAL) Urinalysis with reflex Culture (11/30/2019 8:40 PM EDT) Patholo gist Method Time Signature Glucose UA Negative Negative [facility] mg/dL [facility] LAB[facility]ORY Protein UA Negative Negative [facility] mg/dL [facility] LAB[facility]ORY Bilirubin UA Negative Negative [facility] mg/dL [facility] LAB[facility] Comment: Clinical correlation required for positi ve Urine Bilirubin results as false positive may occur with some drugs and d rug related products. If a false positive is suspected a serum total bili morales should be considered if clinically indicated. Urobilinogen UA Normal Normal mg/dL [facility] LABORATORY pH UA 5.5 5.0 - 8.[address] [facility] LABOR[facility] Blood UA Moderate (A) Negative mg/dL [facility] LABORATORY Ketones UA 40 (A) Negative mg/dL [facility] Nitrite UA Negative Negative [facility] Leukocytes UA Trace (A) Negative [facility] LABORATORY Appearance UA Clear Clear [facility] LABORATORY Spec [place] UA 1.026 1.006 - 1.030 [facility] LABORATORY Color UA Yellow Yellow ST [...] Organization Address City/State/[place] [address] (ABNORMAL) pro-Brain Natriuretic Peptide (11/30/2019 8:30 PM EDT) P athologist Signature ProBNP 2,802 (H) <=125 [facility] pg/mL [facility] LABORATORY Specimen Anatomical Collection Method Collection Time Receive d Time (Source) Location / / Volume Laterality Blood specimen Venous Draw / 11/30/2019 8:30 PM 2019 8:36 (specimen) Unknown EDT PM EDT Resulting Agency Comment Spec In Lab Rossy Winn MD CHEMISTRY ORDERABLES Performing Organization Address City/State/ZIP Code Phon e Number [place] [id number] (ABNORMAL) Troponin (11/30/2019 8:30 PM EDT) athologist Signature Troponin-T 5.04 (H) 0.00 - MELINA MONAE 0.00 ng/mL [facility] LAB[facility] Comment: The 99th percentile for [...] additional sample may be indicated. Reference: Third [place] Definition of Myocardial Infarction. Journal of the [place] [employer] 2012;60:1581-98 Specimen Anatomical Collection Method Collection Time Receive d Time (Source) Location / / Volume Laterality Blood specimen Venous Draw / 11/30/2019 8:30 PM 2019 8:36 (specimen) Unknown EDT PM EDT Resulting Agency Comment Spec In Lab Rossy Winn MD CHEMISTRY ORDERABLES Performing Organization Address City/State/[place] [address] Magnesium (11/30/2019 8:30 PM EDT) athologist Signature Magnesium 0.79 0.69 - 1.07 [facility]/L [facility] LAB[facility]ORY Specimen Anatomical Collection Method Collection Time Receive d Time (Source) Location / / Volume Laterality Blood specimen 11/30/2019 8:30 PM 020 8:35 (specimen) EDT PM EDT Resulting Agency Comment Spec In Lab Gretchen Yoon MD CHEMISTRY ORDERABLES Performing Organization Address City/State/[place] [address] (ABNORMAL) Basic Metabolic Panel (non-fasting) (11/30/2019 8:30 PM EDT) athologist Signature Glucose Lvl 132 65 - 199 [facility] mg/dL [facility] LAB[facility] Comment: Diabetes: >=200 mg/dL plus symp toms BUN 12 10 - 20 mg/dL [facility] LABORATORY Creatinine 0.94 0.80 - 1.50 mg/dL [facility] LABORATORY Sodium 136 135 - 145 [...] of body mass or the acutely ill. [email or web address] eGFR 93 >=60 mL/min/1.73 m?? [facility] LABORATORY Comment: The eGFR was calculated using the CKD-EP I equation. As with all creatinine based estimates of kidney function, eGFR values calculated with the CKD-EPI equation are not accurate in patients wi th acute kidney failure, extremes of body mass or the acutely ill. [email or web address] Specimen Anatomical Collection Method Collection Time Receive d Time (Source) Location / / Volume Laterality Blood specimen 11/30/2019 8:30 PM 020 8:35 (specimen) EDT PM EDT Resulting Agency Comment Spec In Lab Gretchen Yoon MD CHEMISTRY ORDERABLES Performing Organization Address [facility] Phon e Number [address] Blood culture (11/30/2019 8:30 PM EDT) Patholo gist Method Time Signature Blood Culture No growth MELINA MONAE at 5 days. [facility] LABORATORY Specimen Anatomical Collection Method Collection Time Receive d Time (Source) Location / / Volume Laterality Blood specimen 11/30/2019 8:30 PM 020 9:40 (specimen) EDT PM EDT Comment: L HAND Resulting Agency Comment Spec In Lab Gretchen Yoon MD MICROBIOLOGY - BLOOD ORDERAB LES Performing Organization Address City/[facility] [place] [address] Blood culture (11/30/2019 8:30 PM EDT) Patholo gist Method Time Signature Blood Culture No growth MELINA MONAE at 5 days. [facility] LABORATORY Specimen Anatomical Collection Method Collection Time Receive d Time (Source) Location / / Volume Laterality Blood specimen 11/30/2019 8:30 PM 020 9:40 (specimen) EDT PM EDT Comment: R HAND Resulting Agency Comment Spec In Lab Gretchen Yoon MD MICROBIOLOGY - BLOOD ORDERAB LES Performing Organization Address [facility] Phon e Number [address] XR Chest One View [...] [facility] 7.45 [facility] LABORATORY pCO2 Art 27 (L) 35 - 45 [facility] mmHg [facility] LABORATORY pO2 Art 68 (L) 85 - 104 [facility] LABORATORY HCO3 Art 18.2 (L) 20.0 - [facility] 26.0 [facility] mmol/[facility] LABORATORY BE Art -5.9 (L) -3.0 - 3.0 [facility] mmol/L [facility] LABORATORY Hgb Blood Gas 12.4 (L) 13.7 - [facility] 16.5 gm/dL [facility] O2HB Art 93.1 (L) 94.0 - [facility] 97.0 % [facility] LAB[facility] COHB Art 0.8 % [facility] Flow Art 5.[address] [facility] Specimen Anatomical Collection Method Collection Time Receive d Time (Source) Location / / Volume Laterality Blood specimen 11/30/2019 8:09 PM 020 8:09 (specimen) EDT PM EDT Gretchen Yoon MD CHEMISTRY ORDERABLES Performing Organization Address City/State/ZIP Code Phon e Number [place] [phone] HOSPITAL LAB[address]ORY [address] CT Angiogram [place] (11/30/2019 4:36 PM EDT) Anatomical [...] without intravenous co ntrast administration. CT angiogram [place] 65 cc Omnipaque 350 administered [...] without intravenous co ntrast administration. CT angiogram [place] 65 cc Omnipaque 350 administered [...] without intravenous co ntrast administration. CT angiogram [place] 65 cc Omnipaque 350 administered [...] without intravenous co ntrast administration. CT angiogram [place] 65 cc Omnipaque 350 administered [...] Electronically signed by: Angel Luis Barboza MD, [facility] ([phone]), at 11/30/2019 5:04 PM Gretchen Yoon MD [...] 453 ms MUSE SYSTEM (Bezet) Calculated P [place] 52 degrees MUSE SYSTEM Calculated R [place] 5 degrees MUSE SYSTEM Calculated T [place] -60 degrees MUSE SYSTEM INTERPRETATION Sinus rhythm [...] [place]an ? (Age): 1945(74y) Med Rec#: ? [id number] ?Sex: ?M ? Site Loc: ? [facility] ?Ht / Wt: ??178(cm)/64(kg) Pt. Loc: ?[facility] ? BSA: ?1.8 Study Date: ?? 11/30/2019 ?Pt. Type: Inpatient Tape: ? Referring: GILMER Reading: Tello Mejia ([id number]) Residential Sales Associate: Friend, Lolita Diagnosis: *ST elevation (STEMI) myocardial [...] Vmax ?0.58 ? m/sec ? MV deceleration kree121.05 ? m sec ? MV A-wave Vmax [...] ? Mid-Inferior ?Akinetic ? Mid-Inferoseptal ?Normal ? Roscoe-Septal ? Normal ? [place]-Anterior ? Normal ? [place]-Lateral ?Normal ? [place]-Inferior ? Hypokinetic ? [place]-Tip ?Normal ? This report has been electronically sign ed by: _ Tello Mejia MD ? 11/30/2019 12: 45:27 Images reviewed and interpretation [facility] Procedure Note Tello Mejia MD - 11/30/2019Formatti ng of this note might be different from the original. Procedure: Transthoracic Echocardiogram Patient: RITA ACOSTA(Age): [birth year](74y) Med Rec#: [id number] Sex: M Site Loc: [facility] Ht / Wt: 178(cm)/64(kg) [facility]. [facility]: [facility] BSA: 1.8 Study Date: 11/30/2019 Pt. Type: Inpatie nt Tape: Referring: DONAYMICMUNIRAJ Reading: Tello Mejia ([id number]) Residential Sales Associate: Lolita Prado Diagnosis: *ST elevation (STEMI) myocardial [...] MV E-wave Vmax 0.58 m/sec MV deceleration [id number] msec MV A-wave Vmax 0.74 m/sec MV [...] Hypokinetic Mid-Posterolateral Hypokinetic Mid-Inferior Akinetic Mid-Inferoseptal Normal [place]coe-Septal Normal [place]coe-Anterior Normal [place]-Lateral Normal [place]coe-Inferior Hypokinetic Roscoe-Tip Normal This report has been electronically sign ed by: _ Tello Mejia MD 11/30/2019 12:45:27 Images reviewed and interpretation rafaela devin [facility] Cardiac Ultrasound Laboratory Gretchen Yoon MD [...] Electronically signed by: Angel Luis Barboza MD, [facility] ([phone]), at 11/30/2019 12:04 PM Narrative 11/30/2019 12:04 [...] ORDERABLES Magnesium (11/30/2019 8:30 AM EDT) athologist [facility] Magnesium 0.88 0.69 - 1.07 [facility] mmol/L [facility] LABORATORY Specimen Anatomical Collection Method Collection Time Receive d Time (Source) Location / / Volume Laterality Blood specimen Venous Draw / 11/30/2019 8:30 AM 2019 8:37 (specimen) Unknown EDT AM EDT Resulting Agency Comment Spec In Lab Rossy Winn MD CHEMISTRY ORDERABLES Performing Organization Address City/[facility]/[place] [address] (ABNORMAL) CK (11/30/2019 8:30 AM EDT) athologist [facility] CK, Total 1,645 (H) 0 - 200 [facility] unit/L [facility] LABORATORY Specimen Anatomical Collection Method Collection Time Receive d Time (Source) Location / / Volume Laterality Blood specimen 11/30/2019 8:30 AM 020 8:32 (specimen) EDT AM EDT Resulting Agency Comment Spec In Lab Gretchen Yoon MD CHEMISTRY ORDERABLES Performing Organization Address City/[facility] [place] [address] (ABNORMAL) Troponin (11/30/2019 8:30 AM EDT) athologist [facility] Troponin-T 8.04 (H) 0.00 - MELINA DOV 0.00 ng/mL [facility] LABOR[facility]ORY Comment: result rechecked-rancho The 99th [...] additional sample may be indicated. Reference: Third [place] Definition of Myocardial Infarction. Journal of the [place] [employer] 2012;60:1581-98 Specimen Anatomical Collection Method Collection Time Receive d Time (Source) Location / / Volume Laterality Blood specimen 11/30/2019 8:30 AM 020 8:32 (specimen) EDT AM EDT Resulting Agency Comment Spec In Lab Gretchen Yoon MD CHEMISTRY ORDERABLES Performing Organization Address City/State/ZIP Code Phon e Number [place] [phone] HOS[address] LAB[address] Drive EKG 12 Lead (11/30/2019 7:57 AM EDT) Component Value Ref Range Test Analysis Performed Pathologis t Method Time At Signature Ventricular rate 64 BPM MUSE SYSTEM Atrial Rate 64 BPM MUSE SYSTEM P-R Interval 132 ms MUSE SYSTEM QRS Duration 78 ms MUSE SYSTEM Q-T Interval 420 ms MUSE SYSTEM QTC Calculated 433 ms MUSE SYSTEM (Bezet) Calculated P [place] 28 degrees MUSE SYSTEM Calculated R [place] 7 degrees MUSE SYSTEM Calculated T [place] -33 degrees MUSE SYSTEM INTERPRETATION Sinus rhythm [...] [facility] Fasting mg/dL [facility] LABORATORY Comment: ?Fasting* Glucose Interpretive C [...] LABORATORY Creatinine 0.90 0.80 - 1.50 mg/dL [facility] LABORATORY Sodium 135 135 - 145 [...] of body mass or the acutely ill. [email or web address]://WinDensity/[facility] eGFR 98 >=60 mL/min/1.73 m?? [facility] LABORATORY Comment: The eGFR was calculated using the CKD-EP I equation. As with all creatinine based estimates of kidney function, eGFR values calculated with the CKD-EPI equation are not accurate in patients wi th acute kidney failure, extremes of body mass or the acutely ill. http://WinDensity/[facility] Specimen Anatomical Collection Method Collection Time Receive d Time (Source) Location / / Volume Laterality Blood specimen 11/30/2019 2:15 AM 020 2:29 (specimen) EDT AM EDT Resulting Agency Comment Spec In Lab Gretchen Yoon MD CHEMISTRY ORDERABLES Performing Organization Address City/State/ZIP Code Phon e Number [place] [phone]OS[address] LAB[address] Drive (ABNORMAL) Hemogram (11/30/2019 2:15 AM EDT) Analysis Performed At Patho logist Time Signature WBC 11.2 (H) 4.0 - 9.5 [facility] x10(3)/[facility] LABORATORY RBC 3.83 (L) 4.58 - [facility] 5.54 [facility] x10(6)/[facility] LABORATORY Hemoglobin 11.4 (L) 13.7 - [facility] 16.5 gm/dL [facility] LABORATORY Hematocrit 35.2 (L) 40.5 - [facility] 48.5 % [facility] LABORATORY MCV 91.9 82.9 - [facility] 93.1 fL [facility] [facility] MCH 29.8 27.5 - [facility] 32.1 pg [facility] MCHC 32.4 32.0 - MELINA MONAE 35.7 gm/dL [facility] Platelets 122 (L) 145 - 357 MELINA MARSHDOV x10(3)/[facility] LABORATORY RDWSD 49.8 (H) 36.0 - MELINA MONAE 45.0 [facility] LABORATORY RDWCV 14.8 (H) 11.4 - MELINA WHITTENCOCK 13.8 % [facility] MPV 12.1 7.6 - 12.9 MELINA MONAE [facility] LABORATORY nRBC % Auto 0.0 % [facility] nRBC Abs Auto 0.000 0.000 - MELINA MARSHDOV 0.000 [facility] x10(3)/[facility] LABORATORY Specimen Anatomical Collection Method Collection Time Receive d Time (Source) Location / / Volume Laterality Blood specimen 11/30/2019 2:15 AM 020 2:29 (specimen) EDT AM EDT Resulting Agency Comment Spec In Lab Gretchen Yoon MD HEMATOLOGY ORDERABLES Performing Organization Address City/State/[place] [address] (ABNORMAL) CK (11/30/2019 2:15 AM EDT) athologist [facility] CK, Total 1,969 (H) 0 - 200 [facility] DOV unit/L [facility] Specimen Anatomical Collection Method Collection Time Receive d Time (Source) Location / / Volume Laterality Blood specimen 11/30/2019 2:15 AM 020 2:29 (specimen) EDT AM EDT Resulting Agency Comment Spec In Lab Gretchen Yoon MD CHEMISTRY ORDERABLES Performing Organization Address City/State/[place] [address] (ABNORMAL) Troponin (11/30/2019 2:15 AM EDT) athologist [facility] Troponin-T 11.73 (H) 0.00 - MELINA MONAE 0.00 ng/mL [facility] Comment: result rechecked-slw The 99th [...] additional sample may be indicated. Reference: Third [place] Definition of Myocardial Infarction. Journal of the [...] additional sample may be indicated. Reference: [place] Definition of Myocardial Infarction. Journal of the [...] CHEMISTRY ORDERABLES Performing Organization Address City/[facility]/ZIP Code Phon e Number [address] LDL Cholesterol, Direct (11/30/2019 2:15 AM EDT) P athologist Signature LDL Chol 156 mg/dL [facility] LABORATORY Comment: Lowest Risk: <100 mg/dL Lower Risk: 100-129 mg/dL Borderline High Risk: 130-159 mg/dL High Risk: 160-189 mg/dL Very High Risk: >qb=957 mg/dL Specimen Anatomical Collection Method Collection Time Receive d Time (Source) Location / / Volume Laterality Blood specimen 11/30/2019 2:15 AM 020 2:29 (specimen) EDT AM EDT Resulting Agency Comment Spec In Lab Gretchen Yoon MD CHEMISTRY ORDERABLES Performing Organization Address City/[facility]/ZIP Code Phon e Number [address] (ABNORMAL) Hemoglobin A1c (11/30/2019 [...] Mellitus, Diabetes Care 2013; 36: Suppl. 1, U54-83 Est Avg Gluc See note mg/dL [facility] Comment: Estimated Average Glucose not [...] with hemoglobinopathies. Additional resources are available on [facility] ADA website. Kiko CARBAJAL, Jenn J, Silas R, et al. ??Tr anslating the A1C assay into estimated average glucose values. ??Diabetes Care 2008:31(8):1337-1231. Specimen Anatomical Collection Method Collection Time Receive d Time (Source) Location / / Volume Laterality Blood specimen 11/30/2019 2:15 AM 020 2:29 (specimen) EDT AM EDT Resulting Agency Comment Spec In Lab Gretchen Yoon MD CHEMISTRY ORDERABLES Performing Organization Address City/State/[place] [address] Lipid Panel (Reflex Direct LDL) (11/30/2019 2:15 AM EDT) athologist Signature Chol, Total 195 mg/dL [facility] Comment: Lower Risk: <200 mg/dL Average Risk: 200-239 mg/dL Higher Risk: >nt=682 mg/dL Triglycerides 93 mg/dL [facility] Comment: Average Risk/Lower Risk: <150 mg/dL Borderline High Risk: 150-199 mg/dL High Risk: 200-499 mg/dL Very High Risk: >xq=286 mg/dL HDL 32 mg/dL [facility] Comment: Males: ?? Higher Risk: <40 mg/dL Females: ?? HIgher Risk: <50 mg/dL LDL Cholesterol 144 mg/dL [facility] Comment: Lowest Risk: <100 mg/dL Lower Risk: 100-129 mg/dL Borderline High Risk: 130-159 mg/dL High Risk: 160-189 mg/dL Very High Risk: >oh=729 mg/dL Chol/HDL Ratio 6.1 ratio [facility] Lipid Interpretation See Note [facility] Comment: Lipid management should be guided by a p atient? s ASCVD risk, goals and preferences. ACC/AHA Guidelines recommend high intens ity statin if clinical ASCVD or LDL greater than or equal to 190 mg/dL. http://WinDensity/HOU-YHT-Heesdwkls Adults aged 40-75 with LDL 70-189 mg/dL should have their 10 year ASCVD risk estimated with the ACC/AHA ASCVD risk es timator http://tools.acc.org/HCSLZ-Vtod-Ixmualje r/ Statin should be discussed if risk [...] Organization Address City/State/[place] [address] (ABNORMAL) CK (11/29/2019 6:35 PM EDT) athologist Signature CK, Total 2,780 (H) 0 - 200 [facility] unit/L [facility] Specimen Anatomical Collection Method Collection Time Receive d Time (Source) Location / / Volume Laterality Blood specimen 11/29/2019 6:35 PM 020 6:53 (specimen) EDT PM EDT Resulting Agency Comment Spec In Lab Gretchen Yoon MD CHEMISTRY ORDERABLES Performing Organization Address City/State/[place] [address] (ABNORMAL) Troponin (11/29/2019 6:35 PM EDT) athologist Signature Troponin-T 17.60 (H) 0.00 - [facility] 0.00 ng/mL [facility] Comment: result rechecked-az The 99th [...] additional sample may be indicated. Reference: [place] Definition of Myocardial Infarction. Journal of the [place] [employer] 2012;60:1581-98 Specimen Anatomical Collection Method Collection Time Receive d Time (Source) Location / / Volume Laterality Blood specimen 11/29/2019 6:35 PM 020 6:53 (specimen) EDT PM EDT Resulting Agency Comment Spec In Lab Gretchen Yoon MD CHEMISTRY ORDERABLES Performing Organization Address City/State/ZIP Code Phon e Number [place] [id number]ORY [address] EKG 12 Lead (11/29/2019 3:58 PM EDT) [facility] [employer] [facility] [employer] gist Method Time Signature Ventricular rate 73 BPM MUSE SYSTEM Atrial Rate 73 BPM MUSE SYSTEM P-R Interval 152 ms MUSE SYSTEM QRS Duration 84 ms MUSE SYSTEM Q-T Interval 404 ms MUSE SYSTEM QTC Calculated 445 ms MUSE SYSTEM (Bezet) Calculated P [place] 50 degrees MUSE SYSTEM Calculated R [place] -4 degrees MUSE SYSTEM Calculated T [place] 19 degrees MUSE SYSTEM INTERPRETATION Sinus rhythm [...] HISTORY: stemi (as entered by o [facility] provider in the order requisition) [...] lung apex is excluded from the imaged [id number]. IMPRESSION: 1. ??New right internal jugular pulmonar [...] lung apex is excluded from the imaged [id number]. Procedure Note Estefani Harris MD - 11/29/2019Formattin [...] lung apex is excluded from the imaged [id number]. IMPRESSION 1. New right internal jugular pulmonary [...] (ABNORMAL) Differential, Automated (11/29/2019 2:32 PM EDT) [facility] Method Time Signature Neutrophils % 83.8 % [facility] Neutr Abs (ANC) 12.12 (H) 1.70 - [facility] 6.10 [facility] x10(3)/[facility] LABORATORY Lymphocytes % 9.1 % [facility] Lymphocytes Abs 1.3 0.9 - 3.2 [facility] x10(3)/[facility] LABORATORY Monocytes % 6.2 % [facility] Monocyte Abs 0.9 0.3 - 0.9 [facility] x10(3)/[facility] LABORATORY Eosinophils % 0.0 % [facility] Eosinophils Abs 0.0 0.0 - 0.4 [facility] x10(3)/[facility] LABORATORY Basophils % 0.3 % [facility] Basophils Abs 0.0 0.0 - 0.1 [facility] x10(3)/[facility] LABORATORY Immature Gran % 0.60 % [...] Gran Abs 0.08 (H) 0.00 - 0.04 x10(3)/[facility] LABORATORY Specimen Anatomical Collection Method Collection Time Receive d Time (Source) Location / / Volume Laterality Blood specimen 11/29/2019 2:32 PM 020 2:55 (specimen) EDT PM EDT Resulting Agency Comment Spec In Lab Darrell Glasgow MD HEMATOLOGY ORDERABLES Performing Organization Address City/State/[place] [address] (ABNORMAL) Hemogram (11/29/2019 2:32 PM EDT) Analysis Performed At Patho logist Time Signature WBC 14.5 (H) 4.0 - 9.5 [facility] x10(3)/[facility] LABORATORY RBC 4.53 (L) 4.58 - [facility] 5.54 [facility] x10(6)/[facility] LABORATORY Hemoglobin 13.1 (L) 13.7 - [facility] 16.5 gm/dL [facility] Hematocrit 40.8 40.5 - [facility] 48.5 % [facility] MCV 90.1 82.9 - [facility]1 [facility] LAB[facility]ATORY MCH 28.9 27.5 - [facility] 32.1 pg [facility] MCHC 32.1 32.0 - [facility] 35.7 gm/dL [facility] Platelets 184 145 - 357 [facility] x10(3)/[facility] LABORATORY RDWSD 47.8 (H) 36.0 - [facility] DOV 45.0 [facility] LABORATORY RDWCV 14.5 (H) 11.4 - [facility] DOV 13.8 % [facility] MPV 11.9 7.6 - 12.9 [facility] nRBC % Auto 0.0 % [facility] nRBC Abs Auto 0.000 0.000 - [facility] DOV 0.000 [facility] x10(3)/[facility] LABORATORY Specimen Anatomical Collection Method Collection Time Receive d Time (Source) Location / / Volume Laterality Blood specimen 11/29/2019 2:32 PM 020 2:55 (specimen) EDT PM EDT Resulting Agency Comment Spec In Lab Darrell Glasgow MD HEMATOLOGY ORDERABLES Performing Organization Address City/State/ZIP Code Phon e Number [address] (ABNORMAL) CK (11/29/2019 2:32 PM EDT) athologist Signature CK, Total 3,282 (H) 0 - 200 [facility] unit/L [facility] Specimen Anatomical Collection Method Collection Time Receive d Time (Source) Location / / Volume Laterality Blood specimen 11/29/2019 2:32 PM 020 2:32 (specimen) EDT PM EDT Resulting Agency Comment Spec In Lab Gretchen Yoon MD CHEMISTRY ORDERABLES Performing Organization Address City/[facility]/[place] [address] (ABNORMAL) Troponin (11/29/2019 2:32 PM EDT) athologist Signature Troponin-T 20.33 (H) 0.00 - [facility] 0.00 ng/mL [facility] Comment: The 99th percentile for [...] additional sample may be indicated. Reference: Third [place] Definition of Myocardial Infarction. Journal of the [place] College of Cardiology 2012;60:1581-98 Specimen Anatomical Collection Method Collection Time Receive d Time (Source) Location / / Volume Laterality Blood specimen 11/29/2019 2:32 PM 020 2:32 (specimen) EDT PM EDT Resulting Agency Comment Spec In Lab Gretchen Yoon MD CHEMISTRY ORDERABLES Performing Organization Address [facility] [place] [address] (ABNORMAL) APTT (11/29/2019 2:32 PM EDT) athologist Signature PTT 114 25 - 37 [facility] (Critical) [facility] LABORATORY Comment: Critical Result called by ?? [...] Yoon MD HEMATOLOGY ORDERABLES Performing Organization Address [facility] [place] [address] (ABNORMAL) Prothrombin Time (11/29/2019 2:32 PM EDT) P athologist Signature PT 13.5 (H) 9.4 - 12.5 [facility] LABORATORY INR 1.2 [facility] [...] Organization Address City/State/[place] [address] (ABNORMAL) Hepatic Function Panel (11/29/2019 2:32 PM EDT) athologist Signature Total Protein 6.3 6.1 - 8.0 [facility] Albumin 3.6 3.2 - 5.2 [facility] gm/dL [facility] AST 257 (H) 0 - 39 [facility]L [facility] ALT 50 0 - 55 [facility]L [facility] Alk Phos 84 40 - 130 [facility] unit/L [facility] Total 0.3 0.2 - 1.3 [facility] Bilirubin mg/dL [facility] Bili, Direct 0.1 0.0 - 0.3 [facility] DOV mg/dL [facility] Specimen Anatomical Collection Method Collection Time Receive d Time (Source) Location / / Volume Laterality Blood specimen 11/29/2019 2:32 PM 020 2:32 (specimen) EDT PM EDT Resulting Agency Comment Spec In Lab Gretchen Yoon MD CHEMISTRY ORDERABLES Performing Organization Address City/[facility]/[place] [address] (ABNORMAL) pro-Brain Natriuretic Peptide [...] CHEMISTRY ORDERABLES Performing Organization Address City/[facility]/Z[place] [address] Magnesium (11/29/2019 2:32 PM EDT) athologist Signature Magnesium 0.76 0.69 - 1.07 [facility] mmol/L [facility] Specimen Anatomical Collection Method Collection Time Receive d Time (Source) Location / / Volume Laterality Blood specimen 11/29/2019 2:32 PM 020 2:32 (specimen) EDT PM EDT Resulting Agency Comment Spec In Lab Gretchen Yoon MD CHEMISTRY ORDERABLES Performing Organization Address City/State/ZIP Code Phon e Number [address] (ABNORMAL) Basic Metabolic Panel (non-fasting) (11/29/2019 2:32 PM EDT) athologist Signature Glucose Lvl 149 65 - 199 [facility] mg/dL [facility] Comment: Diabetes: >=200 mg/dL plus symp toms BUN 16 10 - 20 mg/dL [facility] Creatinine 0.94 0.80 - 1.50 mg/dL [facility] Sodium 135 135 - 145 [...] of body mass or the acutely ill. http://WinDensity/DHnkf eGFR 93 >=60 mL/min/1.73 m?? [facility] Comment: The eGFR was calculated using the CKD-EP I equation. As with all creatinine based estimates of kidney function, eGFR values calculated with the CKD-EPI equation are not accurate in patients wi th acute kidney failure, extremes of body mass or the acutely ill. http://WinDensity/[facility]ANDnkf Specimen Anatomical Collection Method Collection Time Receive d Time (Source) Location / / Volume Laterality Blood specimen 11/29/2019 2:32 PM 020 2:32 (specimen) EDT PM EDT Resulting Agency Comment Spec In Lab Gretchen Yoon MD CHEMISTRY ORDERABLES Performing Organization Address City/[facility] [place] [address] EKG 12 Lead (11/29/2019 11:38 AM EDT) [employer] gist Method Time Signature Ventricular rate 60 BPM MUSE SYSTEM Atrial Rate 60 BPM MUSE SYSTEM P-R Interval 140 ms MUSE SYSTEM QRS Duration 86 ms MUSE SYSTEM Q-T Interval 474 ms MUSE SYSTEM QTC Calculated 474 ms MUSE SYSTEM (Bezet) Calculated P [place] 48 degrees MUSE SYSTEM Calculated R [place] 14 degrees MUSE SYSTEM Calculated T [place] 58 degrees MUSE SYSTEM INTERPRETATION Normal sinus [...] ECG ORDERABLES Performing Organization Address City/[facility]/ZIP [facility] [place] MUSE SYSTEM CARDIAC CATHETERIZATION (11/29/2019 11:15 AM EDT) Anatomical Region Laterality Modality Other Specimen (Source) Anatomical Location Collection Method / Collectio n Time Received Time / Laterality Volume Narrative 11/30/2019 1:09 PM EDT ?[facility] ? Cardiac Cathete rization/Intervention Report ? Patient Name: Salinas, Angel Luis H. ? Procedure Date: 11/29/2019 ? A #: [id number] ? Primary Physician: Young, Gretchen N ? Case #: [id number] ? File Name: [id number] ? Catheterization Order Number: [id number] ? [facility] ? Final Report [place], [place] ? Patient Name: ? Angel Luis Salinas ? ID#: ?[id number] ? : ?1945 ? Procedure Date: ? [...] procedure was Emergent. The indication for ?the boot and shoe laborer visit is ACS less than or [...] this interventi on was 10%. The final DILOLN flow was 2. ? Vascular Access: ?Vascular [...] dose administered prior to arrival in the boot and shoe laborer. ?Recommended anti-platelet/anti- thrombotic regimen: ?Continue aspirin 81 mg daily fo r indefinitely. ?Continue clopidogrel 75 mg marco a y for 12 months then stop. ?These recommendations are made at the time of the intervention. Patient ?and provider preferences or a c hanging clinical situation may require ?modification of this regimen. C marvult [facility] Interventional Cardiology for ?questions. ? Conclusions: ?* [...] note might be different from the original. [facility] Cardiac Catheterization/Intervention Re port Patient Name: Angel Luis Salinas Procedure Date: 11/29/2019 A #: [id number] Primary Physician: Gretchen Yoon Case #: [id number] File Name: [id number] Catheterization Order Number: [id number] [facility] Final Report [place], [place] Patient Name: Angel Luis Salinas ID#: [id number] : 1945 Procedure Date: November 29, [...] was designated as ASA Class IV. The [facility] clinical frailty scale is 4: Vulnerable. Diagnostic Tests: Electrocardiography: EKG was assessed by ECG. EKG was Abnorm al. EKG showed ST Deviation >= 0.5 mm. Medications Prior to Procedure: Aspirin. Indications for Diagnostic Cath: The priority of the diagnostic procedur e was Emergent. The indication for the boot and shoe laborer visit is ACS less than or [...] for the procedure was Emergent. The [facility] indication for the procedure was [...] administered prior t o arrival in the boot and shoe laborer. Recommended anti-platelet/anti-thrombot ic regimen: Continue aspirin 81 mg daily for indefi nitely. Continue clopidogrel 75 mg daily for 12 months then stop. These recommendations are made at the t loyda of the intervention. Patient and provider preferences or a changing clinical situation may require modification of this regimen. Consult D [facility] Interventional Cardiology for questions. Conclusions: * Two [...] [facility] 7.45 [facility] POC PCO2 33 (L) 35 - 45 [facility] mmHg [facility] POC PO2 56 (L) 85 - 104 [facility] LABORATORY POC Base Excess -8.0 (L) -3.0 - 3.0 [facility] K mmol/L [facility] POC HCO3 17.4 (L) 20.0 - [facility] 26.0 [facility] mmol/[facility] LABORATORY POC Sodium 137 135 - 145 [facility] mmol/L [facility] POC Potassium 3.6 3.5 - 5.0 [facility] mmol/L [facility] POC Ionized Ca 1.15 1.15 - [facility] 1.33 [facility] POC Hematocrit 37.0 (L) 40.0 - [facility] 51.0 % [facility] POC Calc Hgb 12.6 (L) 13.7 - [facility] 17.5 gm/dL [facility] Comment: The calculation of hemoglobin f rom hematocrit assumes a normal MCHC. POC Bgas Loc CC LAB [facility] LABORATORY Specimen Anatomical Collection Method Collection Time Receive d Time (Source) Location / / Volume Laterality Blood specimen 11/29/2019 9:17 AM 020 7:35 (specimen) EDT AM EDT Gretchen Yoon MD CHEMISTRY ORDERABLES Performing Organization Address City/State/[place] [address] EKG 12 Lead (11/29/2019 9:01 AM EDT) Component Value Ref Range Test Analysis Performed Pathologis t Method Time At Signature Ventricular rate 80 BPM MUSE SYSTEM Atrial Rate 79 BPM MUSE SYSTEM QRS Duration 94 ms MUSE SYSTEM Q-T Interval 436 ms MUSE SYSTEM QTC Calculated 502 ms MUSE SYSTEM (Bezet) Calculated R [place] 54 degrees MUSE SYSTEM Calculated T [place] 80 degrees MUSE SYSTEM INTERPRETATION Normal sinus [...] 150 mg, Intravenous, ONCE, 1 dose, On [place] 12/07/19 at 1315, Warning Vesicant/Irritant Medication , [...] CONTINUOUS, Starting on 11/29/19 at 1930, Until [place] 11/30/19 at 0029, Please stop drip once [...] Intravenous, ONCE PRN, 1 dose, Starting on [place] 11/30/19 at 1636, Until [place] 11/30/19 at 1636, Per Protocol, Warning Vesicant/Irritant [...] mL/hr 250 mL/hr, Intravenous, CONTINUOUS, Starting on [place] 12/07/19 at 0145, Until [place] 12/07/19 at 0239 levoFLOXacin (LEVAQUIN) 750 mg in New Bag 11/30/2019 11:03 PM EDT 750 mg 100 mL/hr dextrose 5% 150 mL 750 mg, Intravenous, at 100 mL/hr, EVERY 24 HOURS, First dose on [place] 11/30/19 at 2300, Until Discontinued, Routine, Indication [...] 2 g, Intravenous, ONCE, 1 dose, On [facility] 11/29/19 at 1530, Administer over 120 [...] RN) 150 mg, Intravenous, ONCE, 1 dose, [place] at 1315, Warning Vesicant/Irritant Medication , Routine [...] ONCE, 1 dose, 12/06/19 at 0515, Ad director of individual giving over 120 Minutes magnesium sulfate 2 g [...] Bentley RN) 0-8,000 Units, Intravenous, BOLUS PER BEÉLN ELAINE PROTOCOL, Starting 12/06/19 at 0926, Until [...] Oral, EVERY 4 HOURS PRN, Startin g [place] 11/30/19 at 2016, Until Sun12/08/19 at 1811, hypokalemia
Administer for serum potassium (mMol/L) of 3.9 - 4 See instructions for Potassium Protocol in online policies.
Routine Or potassium chloride ER (K-Dur/Klor-Con) tablet 40 mEqJump to med 40 mEq, Oral, EVERY 4 HOURS PRN, Startin g [place] 11/30/19 at 2016, Until Sun12/08/19 at 1811, hypokalemia
Administer for serum potassium (mMol/L) of 3.6 - 3.8 See instructions for Potassium Protocol in online policies.
Routine documented in this encounter Care Teams Radiological Metallurgist Relationship Specialty Start Date End Date France Lam MD PCP - General 05/02/13 02/04/20 [address] [place] [address] documented as of this encounter
--- OUTSIDE RECORDS SUMMARY | 2022-05-04 11:04 | XMS_ITS | Encounter Summary ---
:1945 [place] [address] Care Team Providers Name Role Phone France Lam MD Primary Care Provider Reason for Visit Auth/Cert Specialty Diagnoses / Procedures Referred By Contact Refer red To Contact Diagnoses STEMI (ST elevation myocardial infarction) STEMI Procedures CARDIAC CATHETERIZATION Referral ID Status Reason Start Date Expiration Date Visits Requ ested Visits Authorized [id number] 1 1 Encounter Details Date Type Department Care Team Description 11/29/2019 Surgery Director Of Exhibits Gretchen Corral, CARDIAC CATHETERIZATION [facility] [place] [address] [place] [id number] [phone] (Wo rk) Social History Tobacco Use Types [...] Luis Salinas Patient Age: 74 y.o. Language: Chilean Race: White Ethnicity: Not nor Admit date: [...] months on: antiplatelet therapy at discretion of hop picker - Repeat TTE in 3 months to reassess LV function - Repeat BMP in 1-2 weeks given recent start lisinopril - Referred to lipid clinic for consideration of PCSK-9 inhibitor given STEMI with intolerance of statins - Started on amiodarone this admission for recurrent rapid atrial flutter with rates ~170, recommendcontinued assessment of necessity of rhythm control strategy with hop picker - Amiodarone monitoring recommendations as below - [...] please contact your inpatient physician through the [facility] Construction Lab[employer] . Issues after hours and on [...] and Compazine. He was transferred directly to [facility] via [facility] for further management. Patient had an emergent PCI with 3 MACARIO stents placed to his RCA, with mild disease of LCX (report pending) at [facility]. He was found to be persistently hypotensive requiring Levo up to 10mcg/min. He was transferred to [facility] after the cath procedure. Bedside RHC showed CI 2.12, PAWP 11, PAP 38/15 indicating hypovolemic state. He received 1L bolus of NS with improvement of his blood pressure to 124/61. History of PAD, HLD - had side reactions to statins - so taking niacin and red rye grain. Chronic active smoker with more than 65 pack years. Family history of VT in father and two uncles. He's takingbaby [...] ip as described above. On arrival at [facility] he was taken for cardiac [...] priority for the procedure was Emergent. [facility] [...] number below. Electronically signed by: Estefani Harris [facility] ([phone]), at 11/29/2019 4:[address] Head wo Contrast (Generic) (Exam End: 11/30/2019 10:41 AM) Impression Focal hemorrhage with small amount of adjacent edema projecting in the region of the left optic tract. Thank you for letting us participate in the care of this patient. For questions regarding this report, please contact the number below. Electronically signed by: Angel Luis Barboza MD, [facility] ([phone]), at 11/30/2019 12:[address] Head wo Contrast (Generic) (Exam End: 11/30/2019 4:36 PM) Impression Head CT: Stable hemorrhage in the region of the left optic tract. CTA: Negative exam. No abnormal vasculature in the area of hemorrhage. Thank you for letting us participate in the care of this patient. For questions regarding this report, please contact the number below. Angiogram [place] [facility] [place] (Exam End: 11/30/2019 4:36 PM) Impression Head CT: Stable hemorrhage in the region of the left optic tract. CTA: Negative exam. No abnormal vasculature in the area of hemorrhage. Thank you for letting us participate in the care of this patient. For questions regarding this report, please contact the number below. Electronically signed by: Angel Luis Barboza MD, [facility] ([phone]), at 11/30/2019 5:04 PM MRI Brain wo [...] Electronically signed by: Angel Luis Barboza MD, [facility] ([phone]), at 12/01/2019 8:02 PM XR Chest One [...] number below. Electronically signed by: Latoya Ivey, [facility] ([phone]), at 11/30/2019 8:[address] Head wo [...] number below. Electronically signed by: Merari Collins [facility] ([phone]), at 12/01/2019 3:53 PM XR Chest One View (Exam End: 12/02/2019 1:00 PM) Impression Slightly increased small bibasilar pleural effusions and atelectasis. Thank you for letting us participate in the care of this patient. For questions regarding this report, please contact the number below. Electronically signed by: Ashly Marley [facility] ([phone]), at 12/02/2019 1:[address] Cardiac for [...] number below. Electronically signed by: Roselyn Luciano [facility] ([phone]), at 12/04/2019 6:16 PM MRI Brain wwo Contrast (Generic) (Exam End: 12/05/2019 7:59 PM) Impression No significant interval change. Thank you for letting us participate in the care of this patient. For questions regarding this report, please contact the number below. Electronically signed by: Merari Collins [facility] ([phone]), at 12/05/2019 10:[address] Head wo [...] number below. Electronically signed by: Merari Collins [facility] ([phone]), at 12/06/2019 10:06 PM Pending Studies and Lab Data: N/A Discharge Conditions/Prognosis: stable Discharge to: home Updated Allergies/ADRs: Allergies Allergen Reactions ??? Penicillins Pt doesn't remember reaction ??? Nlhtjbf-Ebs-Igg Reductase Inhibitors Stiff neck, upset stomach, back [...] medications at another hospital and then at [facility] you had a stent placed [...] FOR ONE MONTH AND THEN STOP. Your hop picker may tell you to start this medication again after one year. Clopidogrel (Plavix) 75 mg daily - This medication will help prevent clots from forming in your blood, which will help protect the stent that was placed in your heart vessel. TAKE THIS FOR ONE YEAR ANDTHEN DISCUSS WITH YOUR LIBRARY MEDIA TECHNICIAN WHETHER TO STOP. Amiodarone 400mg twice daily [...] follow up: Your primary care provider and hop picker will manage your blood thinner (apixaban). You do not need lab monitoring of this medication. Diet: Please consume a healthy diet low in cholesterol Follow up Appointments: 12/10/2019 at 3:10PM with PCP Angel Luis Lott Future Appointments Date Time Provider Department Center 12/23/2019 1:30 PM Alfreda Salas APRN [facility] [id number] 12/26/2019 9:40 AM Merlin Sanchez MD [facility] CARD 4A [facility] 12/30/2019 3:40 PM Gretchen Yoon MD [address] Future Appointments and Orders Future Appointments and Orders Future Appointments Provider Department Dept Phone 12/23/2019 1:30 PM Alfreda Salas APRN Neurosurgery at [facility] Arrive at: Home [phone] Please do not come in for this visit. Your provider will call you at the number you provided. 12/26/2019 9:40 AM Merlin Sanchez MD Cardiology at [facility] Arrive at: Home [phone] Please do not come in for this visit. Your provider will call you at the number you provided. 12/30/2019 3:40 PM Gretchen Yoon MD Cardiology at [facility] Arrive at: Home [phone] Please do not come in for this visit. Your provider will call you at the number you provided. Future Orders Complete By Expires Referral to Cardiac Rehab [CVT638 Custom] As directed Process Instructions: If no progress note charted, please enter Clinical details in comments. Scheduling Instructions: Questions: My question or request is: STEMI. Cardiac rehab at [facility] Referral to [facility] [REF43 Custom] As directed Process Instructions: If no progress note charted, please enter Clinical details in comments. Scheduling Instructions: Questions: My question or request is: patient with inferior stemi with history of statin allergy (rash) - please evaluate for psck9 inhibitor. Referral to Home Health - at DISCHARGE [ALO9183 CPT(R)] As directed Process Instructions: Scheduling Instructions: Comments: DOCUMENTATION FOR VNA SERVICES PATIENT'S LOCATION: Angel Luis Corcoran [address] [address] (home) Emergency Response Officer's Name: Self In discussion with the attending physician, it is certified that this patient is under his/her care and that MD, or an CREDIT COUNSELOR, HEADING REPAIRER, or PA who is working directly with him/her, had a zgbm-mc-gtun encounter that meets the physician sceb-ub-cpes encounter requirements with this patient on 12/07/2019. [...] for managing ADLs. HOME HEALTH CARE AGENCY: [facility], PHONE: [phone] FAX: [phone] Start of care: 24-48 hours after hospital [...] MD [address] / [place] [address] All A agencies which cover the area of patient's residence have been reviewed, either verbally or in writing, and patient/family have chosen the home health care agency noted. Questions: Agency name and contact information: [facility] Patient location post discharge: Home What services are requested: Registered Nurse Physical Therapy Occupational Therapy Start date: Responsible MD post discharge contact info: PCP Your PCP: France Lam MD [phone] For questions regarding this document or issues relating to this hospitalization on the Cardiology Service, please contact your inpatient physician through the [facility] Construction [employer] . Issues after hours and on weekends will be handled by the Payroll Technician on-call. Patient Instructions: Neurology Your Diagnosis: Left [...] in the neurology clinic at [facility]. See below for the appointment time. If [...] 1:30 PM Alfreda Salas APRN Neurosurgery at [facility] Arrive at: Home [phone] Please do not come in for this visit. Your provider will call you at the number you provided. 12/26/2019 9:40 AM Merlin Sanchez MD Cardiology at [facility] Arrive at: Home [phone] Please do not come in for this visit. Your provider will call you at the number you provided. 12/30/2019 3:40 PM Gretchen Yoon MD Cardiology at [facility] Arrive at: Home [phone] Please do not come in for this visit. Your provider will call you at the number you provided. Future Orders Complete By Expires Referral to Cardiac Rehab [[id number] Custom] As directed Process Instructions: If no progress note charted, please enter Clinical details in comments. Scheduling Instructions: Questions: My question or request is: STEMI. Cardiac rehab at [facility] Referral to [facility] [REF43 Custom] As directed Process Instructions: If no progress note charted, please enter Clinical details in comments. Scheduling Instructions: Questions: My question or request is: patient with inferior stemi with history of statin allergy (rash) - please evaluate for psck9 inhibitor. Referral to Home Health - at DISCHARGE [BAF3851 CPT(R)] As directed Process Instructions: Scheduling Instructions: Comments: DOCUMENTATION FOR VNA SERVICES PATIENT'S LOCATION: [address] [address] (home) Emergency Response Officer's Name: Self In discussion with the attending physician, it is certified that this patient is under his/her care and that MD, or an CREDIT COUNSELOR, HEADING REPAIRER, or PA who is working directly with him/her, had a wxfs-re-vqza encounter that meets the physician dcgh-cw-leff encounter requirements with this patient on 12/07/2019. [...] for managing ADLs. HOME HEALTH CARE AGENCY: [facility], PHONE: [phone] FAX: [phone] Start of care: 24-48 hours after hospital [...] MD [address] / [place] [address] All A agencies which cover the area of patient's residence have been reviewed, either verbally or in writing, and patient/family have chosen the home health care agency noted. Questions: Agency name and contact information: [facility] Patient location post discharge: Home What services are requested: Registered Nurse Physical Therapy Occupational Therapy Start date: Responsible MD post discharge contact info: PCP Discharge References/Attachments Atrial Fibrillation (Chilean) Cardiac Rehabilitation (Chilean) Heart Failure (Chilean) Heart Failure: Limiting Sodium (Chilean) Hemorrhagic Stroke: General Info (Chilean) Smoking: Stopping (Chilean) Stroke Rehabilitation: General Info (Chilean) Pulmonary Embolism (Chilean) Riki Stevens MD PGY-3, Internal Medicine Cardiology S2, #[id number] Associated attestation - Paris Dodd MD - 12/09/2019 4:44 PM EDT Cardiology Attending Discharge Addendum I was the assigned attending hop picker for this clinical encounter. For the purposes [...] complications include novel onset, paroxysmal atrial fibrillation [[id number]: 5] & L-sided diplopia with potential hemineglect [...] My contact information: Paris Matt MD MPH [address], [place] [address] (office); Pager #[phone] Email: documented in this encounter Discharge Instructions Patient InstructionsFiRiki de jesus MD - 12/02/2019 9:56 AM EDT Images from the original note were not included. Why you were hospitalized: You had a heart attack. You received clot-busting medications at another hospital and then at [facility] you had a stent placed [...] FOR ONE MONTH AND THEN STOP. Your hop picker may tell you to start this medication again after one year. Clopidogrel (Plavix) 75 mg daily - This medication will help prevent clots from forming in your blood, which will help protect the stent that was placed in your heart vessel. TAKE THIS FOR ONE YEAR ANDTHEN DISCUSS WITH YOUR LIBRARY MEDIA TECHNICIAN WHETHER TO STOP. Amiodarone 400mg twice daily [...] follow up: Your primary care provider and hop picker will manage your blood thinner (apixaban). You do not need lab monitoring of this medication. Diet: Please consume a healthy diet low in cholesterol Follow up Appointments: 12/10/2019 at 3:10PM with PCP Angel Luis Lott Future Appointments Date Time Provider Department Center 12/23/2019 1:30 PM Alfreda Salas APRN [facility] [id number] [facility] 12/26/2019 9:40 AM Merlin Sanchez MD [facility] CARD 4A [facility] 12/30/2019 3:40 PM Gretchen Yoon MD [facility] CARD 4A [facility] Future Appointments and Orders Future Appointments and Orders Future Appointments Provider Department Dept Phone 12/23/2019 1:30 PM Alfreda Salas APRN Neurosurgery at [facility] Arrive at: Home [phone] Please do not come in for this visit. Your provider will call you at the number you provided. 12/26/2019 9:40 AM Merlin Sanchez MD Cardiology at [facility] Arrive at: Home [phone] Please do not come in for this visit. Your provider will call you at the number you provided. 12/30/2019 3:40 PM Gretchen Yoon MD Cardiology at [facility] Arrive at: Home [phone] Please do not come in for this visit. Your provider will call you at the number you provided. Future Orders Complete By Expires Referral to Cardiac Rehab [[id number] Custom] As directed Process Instructions: If no progress note charted, please enter Clinical details in comments. Scheduling Instructions: Questions: My question or request is: STEMI. Cardiac rehab at [facility] Referral to [facility] [REF43 Custom] As directed Process Instructions: If no progress note charted, please enter Clinical details in comments. Scheduling Instructions: Questions: My question or request is: patient with inferior stemi with history of statin allergy (rash) - please evaluate for psck9 inhibitor. Referral to Home Health - at DISCHARGE [[id number] CPT(R)] As directed Process Instructions: Scheduling Instructions: Comments: DOCUMENTATION FOR VNA SERVICES PATIENT'S LOCATION: [address] [phone] (home) Emergency Response Officer's Name: Self In discussion with the attending physician, it is certified that this patient is under his/her care and that MD, or an CREDIT COUNSELOR, HEADING REPAIRER, or PA who is working directly with him/her, had a efek-st-nsxf encounter that meets the physician kumk-lm-jwia encounter requirements with this patient on 12/07/2019. [...] for managing ADLs. HOME HEALTH CARE AGENCY: [facility], PHONE: [phone] FAX: [phone] Start of care: 24-48 hours after hospital [...] MD [address] / [place] [address] All A agencies which cover the area of patient's residence have been reviewed, either verbally or in writing, and patient/family have chosen the home health care agency noted. Questions: Agency name and contact information: [facility] Patient location post discharge: Home What services are requested: Registered Nurse Physical Therapy Occupational Therapy Start date: Responsible MD post discharge contact info: PCP Your PCP: France Lam MD [phone] For questions regarding this document or issues relating to this hospitalization on the Cardiology Service, please contact your inpatient physician through the [facility] Construction Laborer . Issues after hours and on weekends will be handled by the Payroll Technician on-call. Patient Instructions: Neurology Your Diagnosis: Left [...] in the neurology clinic at [facility]. See below for the appointment time. If you do not have an appointment, you will be called with a time/date for this appointment. ??? Primary Care Provider: Please follow up with your Primary Care Provider within one to 2 weeks ofdischarge. AttachmentsThe following attachments cannot be sent through Care Everywhere. Atrial Fibrillation (Chilean)Cardiac Rehabilitation (Chilean)Heart Failure (Chilean)Heart Failure: Limiting Sodium (Chilean)Hemorrhagic Stroke: General Info (Chilean)Smoking: Stopping (Chilean)Stroke Rehabilitation: General Info (Chilean)Pulmonary Embolism (Chilean)documented in this encounter Medications at Time of [...] consulted in the interim. Vikash Rodriguez Pager: [phone] Paris Dodd MD - 12/08/2019 8:57 AM [...] complications include novel onset, paroxysmal atrial fibrillation [[id number]: 5] & L-sided diplopia with potential hemineglect [...] consulted in the interim. Vikash Rodriguez Pager: [phone] Paris Dodd MD - 12/07/2019 9:55 AM [...] complications include novel onset, paroxysmal atrial fibrillation [JKJ8JI2QYRF: 5] & L-sided diplopia with potential hemineglect [...] complications include novel onset, paroxysmal atrial fibrillation [GFJ6GO6WKFZ: 5] & L-sided diplopia with potential hemineglect [...] complications include novel onset, paroxysmal atrial fibrillation [ZFP4PB1BRDM: 5] & L-sided diplopia with potential hemineglect [...] today; additional complications include paroxysmal atrial fibrillation [OTD1BS3CIHN: 4] c/b possible cardioembolic stroke, ICH from [...] length from neck/greatest diameter to back wall: SAMOAN 91, CAU 13: 19 mm CORTES 1, [...] a non-culprit artery. S/P DESx3 in the dordywpv-ax-gajhce RCA. Aspiration thrombectomy performed, and integrellin bolus [...] complications include novel onset, paroxysmal atrial fibrillation [WPA2QY7PTID: 5] & L-sided diplopia with potential hemineglect [...] R occipital cardioembolic stroke #Paroxysmal Afib with ML3HVMPF5V score of 5 #New segmental bilateral PEs [...] Glasgow MD PGY1, Internal Medicine Cardiology S2, #4249 Associated attestation - Paris Dodd MD - 12/05/2019 2:59 PM EDT I was the assigned attending hop picker for this clinical encounter. For the purposes [...] 12/04/2019 10:36 AM EDT Office of Care Management(OCM)/Quality Control Analyst(CM)/Discharge Planning Service: Cardiology S2 team CM Bernie Alexander,RN,BSN,MA,ACM pgr [phone] Reviewed record and in Cardiology Rounds with MD team,CMs, clay preparation supervisor, SCIENCE CENTER DISPLAY BUILDER. Pt is anticipated ready for d/c later [...] AD to his PCP and to any [facility] appt for each to have [...] complications include novel onset, paroxysmal atrial fibrillation [SYR2AT5LAPL: 4] & L-sided diplopia with potential hemineglect [...] a non-culprit artery. S/P DESx3 in the mcgvxgay-bs-bzdqcd RCA. Aspiration thrombectomy performed, and integrellin bolus [...] complications include novel onset, paroxysmal atrial fibrillation [VAA2SN7JCZY: 5] & L-sided diplopia with potential hemineglect [...] R occipital cardioembolic stroke #Paroxysmal Afib with PC7CLZDE9N score of 5 - No anticoagulation for [...] Glasgow MD PGY1, Internal Medicine Cardiology S2, #6010 I have seen the patient and reviewed [...] discharge home with followup in my clinic. rGetchen Yoon MD Pager [phone] Derian Pascual RN - 12/03/2019 9:29 AM [...] Discharge: None Electronically signed: Derian Pascual RN, Quality Control Analyst Pgr: [phone] 12/03/2019 9:29 AM Gretchen Yoon [...] complications include novel onset, paroxysmal atrial fibrillation [DYP0UT9WXJN: 4] & L-sided diplopia with potential hemineglect [...] a non-culprit artery. S/P DESx3 in the fbrphhge-xj-defxxm RCA. Aspiration thrombectomy performed, and integrellin bolus [...] complications include novel onset, paroxysmal atrial fibrillation [ELU0ZE1JATE: 5] & L-sided diplopia with potential hemineglect [...] [facility] and follow [facility] with his PCP. Patient voiced strong will to quit smoking now, understood that we have resources available for help. Plan [P]: --Neurologic-- # Concern for Left-Sided Diplopia, r/o Hemineglect # Concern for CVA, last-known well 11/29/19 - MRI showed possible cardioembolic stroke #Afib with IN4KVHYN2S score of 5 - Stroke Team Consulted; [...] Anticoagulation/Arrhythmia # Novel Onset, Paroxsymal Atrial Fibrillation [JJE2NE1MQCN: 5] - Hold off anticoagulation for at [...] w straight cath prn # Nutrition - [facility] Diet, 2g Na. -- Hematology/Oncology-- [...] Glasgow MD PGY1, Internal Medicine Cardiology S2, #7708 I have seen the patient and reviewed the resident's above history and I agree with the details as written. The assessment and plan were formulated in discussion with me and I agree with them as documented. Gretchen Yoon MD Pager [phone] Raul Hein RN - 12/03/2019 5:55 AM [...] Negative mcL Appearance UA Clear Clear Spec Clarita UA 1.026 1.006 - 1.030 Color UA [...] PGY3 Neurology Resident 12/01/2019 Vascular Neurology Pager [phone] Neurology Attending Attestation I evaluated the patient [...] documented. Deepthi Roman MD Vascular Neurology Standard [facility] Swallow Screen: This screen is [...] diet as medical provider deems appropriate. Consider UTILITIES AND MAINTENANCE SUPERVISOR consult for full evaluation and [...] complications include novel onset, paroxysmal atrial fibrillation [FBC7RV5DUZP: 4] & L-sided diplopia with potential hemineglect [...] a non-culprit artery. S/P DESx3 in the pxgdslfz-hc-bbmvnb RCA. Aspiration thrombectomy performed, and integrellin bolus [...] complications include novel onset, paroxysmal atrial fibrillation [BTG7GW7BZRC: 5] & L-sided diplopia with potential hemineglect [...] Anticoagulation/Arrhythmia # Novel Onset, Paroxsymal Atrial Fibrillation [LHQ8GO8POFE: 5] - Hold off anticoagulation - pending [...] tamsulosin d/t low BP. # Nutrition - [facility] Diet -- Hematology/Oncology-- # Mild [...] Glasgow MD PGY1, Internal Medicine Cardiology S2, #3300 I have seen the patient and reviewed [...] the ICU team. Gretchen Yoon MD Pager [phone] Natalia Claros APRN - 12/02/2019 8:38 AM [...] - We are signing off. Please page [phone] with any questions or concerns. For questions please call NSGY pager [phone] Natalia Claros APRN 12/02/2019 8:38 AM Clinical Documentation Improvement: Active Hospital Problems Diagnosis ??? Acute ST elevation myocardial infarction (STEMI) of inferior wall ??? Intracranial hemorrhage ??? Hyperlipidemia ??? Tobacco abuse ??? Claudication from peripheral vascular disease, left Resolved Hospital Problems No resolved problems to display. Tello Hsu, TITLE OFFICER - 12/02/2019 2:06 AM EDT 12/01/192009 Oxygen [...] number below. Electronically signed by: Latoya Ivey [facility] ([phone]), at 11/30/2019 8:32 PM ASSESSMENT: Patient states he is breathing easier than last night. Still increased WOB PLAN: Wean FiO2 as tolerated. Patient to CT Scan in afternoon. Upon arrival back in [facility] placed on low flow NC [...] complications include novel onset, paroxysmal atrial fibrillation [[id number]: 4] & L-sided diplopia with potential hemineglect for which CVA evaluationto be pursued. Active Problems/Subjective: - 11/28: admitted for inferior STEMI, RV failure requiring pressor - got lytics, aspirin and plavix load, heparin gtt, and eptifibatide. 3 MACARIO stents to RCA. Elgin cath - low wedge & CVP so [...] a non-culprit artery. S/P DESx3 in the pwjogyto-ei-sivvpk RCA. Aspiration thrombectomy performed, and integrellin bolus [...] complications include novel onset, paroxysmal atrial fibrillation [[id number]: 4] & L-sided diplopia with potential hemineglect [...] Anticoagulation/Arrhythmia # Novel Onset, Paroxsymal Atrial Fibrillation [[id number]: 4] - Obtain: TTE - Pending CVA [...] tamsulosin d/t low BP. # Nutrition - [facility] Diet -- Hematology/Oncology-- # Mild [...] MD, PGY1 PGY3, Internal Medicine Cardiology S2, #1161 I have seen the patient and reviewed [...] down the line. Gretchen Yoon MD Pager [phone] ?? Gretchen Yoon MD Pager [phone] Natalia Claros APRN - 12/01/2019 1:33 AM [...] per primary team For questions please call [employer] pager [phone] Natalia Claros APRN 12/01/2019 7:42 AM Clinical Documentation Improvement: Active Hospital Problems Diagnosis ??? Acute ST elevation myocardial infarction (STEMI) of inferior wall ??? Intracranial hemorrhage ??? Hyperlipidemia ??? Tobacco abuse ??? Claudication from peripheral vascular disease, left Resolved Hospital Problems No resolved problems to display. Tello Hsu, TITLE OFFICER - 11/30/2019 8:44 PM EDT Respiratory Therapy [...] number below. Electronically signed by: Latoya Ivey [facility] ([phone]), at 11/30/2019 8:32 PM ASSESSMENT: Patient had [...] EDT Narrative:Visited in response to request for Air Cargo Specialist services. Pt was awake, alert, oriented and in bed. Assessment:Patient coping positively with stresses of illness/hospitalization at this time. Pt says that he is hoping to get better and pt is living with and has children and grandchildren. Pt haspurpose of life and has reason to get getter and to be with family. Outcome: Provided emotional and spiritual support and encouraging presence. Air Cargo Specialist services accepted.Conversation to build trusting relationship.Provided pastoral [...] complications include novel onset, paroxysmal atrial fibrillation [[id number]: 4] & L-sided diplopia with potential hemineglect for which CVA evaluationto be pursued. Active Problems/Subjective: - Overnight, CVP < 12 for which a total of 1 L IVF provided - Today AM, patient complains of subjectively reported, left-sided hemineglect with floaters and diplopia [see: exam]. - Otherwise, c/o neck pain 2/2 R IJ Elgin & L radial A line. Otherwise, denies [...] a non-culprit artery. S/P DESx3 in the nfrfkdzp-ed-kgrrjb RCA. Aspiration thrombectomy performed, and integrellin bolus [...] complications include novel onset, paroxysmal atrial fibrillation [[id number]: 4] & L-sided diplopia with potential hemineglect [...] Anticoagulation/Arrhythmia # Novel Onset, Paroxsymal Atrial Fibrillation [[id number]: 4] - Obtain: TTE to confirm rhythm [...] tamsulosin d/t low BP. # Nutrition - [facility] Diet -- Hematology/Oncology-- # Mild [...] MD, PGY3 PGY3, Internal Medicine Cardiology S2, #9008 I have seen the patient and reviewed [...] down the line. Gretchen Yoon MD Pager [phone] Paola Capps RN - 11/30/2019 6:57 AM EDT PT still requiring 4 of levo, several attempts to titrate down (maps in 70;s) But maps would drop toless than 65. Pt very restless in bed Raising and lowering head denies pain . Integrillin stopped [id number] when bottle complete , urine tea colored [...] PCP: France Lam MD PCP phone #: [phone] Advertising Solicitor: None ID/Chief Complaint: Chest pain History of [...] and Compazine. He was transferred directly to [facility] via [facility] for further management. Patient had an emergent PCI with 3 MACARIO stents placed to his RCA, with mild disease of LCX (report pending) at [facility]. He was found to be persistently hypotensive requiring Levo up to 10mcg/min. He was transferred to [facility] after the cath procedure. Bedside RHC showed CI 2.12, PAWP 11, PAP 38/15 indicating hypovolemic state. He received 1L bolus of NS with improvement of his blood pressure to 124/61. History of PAD, HLD - had side reactions to statins - so taking niacin and red rye grain. Chronic active smoker with more than 65 pack years. Family history of [place] in father and two uncles. He's takingbaby [...] ??? Penicillins Pt doesn't remember reaction ??? Eymtkdv-Eqe-Xhr Reductase Inhibitors Stiff neck, upset stomach, back pain Family History: Mother: Father: [place] 2 Uncles with MIs Social History: Tobacco: Current active smoker 1 ppd. 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 Vitals: Last value Range last [...] in the last 7068 hours. Invalid input(s): FOPPLVRUKRB4J Heme: No results for input(s): LDH, HAPTOGLOBIN, [...] OSH prior to transfer and PCI at [facility]. Massive inferior STEMI with troponin level 20, currently in CVCC due to pressor requirement. BedsideRHC demonstrated evidence of elevated right sided heart failure, but his wedge was wnl. He received 1L bolus with improvement of his blood pressure and reduction of his pressor requirement. PLAN: Admit to Cardiology, S2 Team Pager # [phone] #Inferior STEMI, LEYLA 149 - Resolving EKG [...] inferior STEMI s/p lytic therapy. Transferred to [facility] and underwent successful PCI of the RCA with MACARIO x3. Gretchen Yoon MD Pager [phone] documented in this encounter Procedure Notes Juventino [...] to the planned procedure. Hand Hygiene: The manager science did perform hand hygiene prior to arterial [...] a suspected line-associated infection. Location of Procedure: [facility] Risks and Benefits: The risks [...] to the planned procedure. Hand Hygiene: The manager science did perform hand hygiene prior to line [...] side:right An Introducer (PSI Kit) was used. [place]. Insertion Side: right. Insertion Site: internal jugular. Catheter Details: Number of Lumens: 1 Catheter Type: heparin-coated The line was placed over a guidewire. Confirmation of Venous Placement: Venous placement was confirmed by transducing the pressure. Introducer Insertion Attempts: 1 Comments: Floating the Elgin-Mo Catheter Attempts: 1 Comments: Sterile Dressing: Biopatch [...] better pt back in SR. Please page [phone] for any more cares or concerns Plan [...] complications include novel onset, paroxysmal atrial fibrillation [[id number]: 5]& L-sided diplopia with potential hemineglect for [...] Total Evaluation Minutes, Occupational Therapy: 10 Pager: [phone] FRANCINE Nuñez Occupational Therapy Rehabilitation Department Plan [...] complications include novel onset, paroxysmal atrial fibrillation [[id number]: 5] & L-sided diplopia with potential hemineglect [...] hand rails). Baseline Mobility: Independent. Drives. 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 Assessment: nAgel Luis Salinas was seen today for physical [...] plan as stated. Time IN / OUT: 9195-4364 Total Evaluation Minutes, Physical Therapy: 15(gtx1) Barbara Baldwin, PT Pager: [phone] Physical Therapy Inpatient Rehabilitation Department Plan of [...] he receives all he needs [facility] the [facility]. Consult refused. Romain Tran, MSN, RN-, [facility] Tobacco Supervisor [facility] Pager #[phone] Plan of Care - Romain Oglesby OT [...] complications include novel onset, paroxysmal atrial fibrillation [QPI2PF5WGHZ: 5] & L-sided diplopia with potential hemineglect [...] and measurable assessment of functional outcome. Pager: [phone] ROMAIN OGLESBY OT 12/03/2019 Occupational Therapy Rehabilitation [...] in an outpatient cardiac rehabilitation program at [facility] was discussed. Patient agrees to a referral to this program. His has been a cardiac rehab patient at [facility] and he is familiar with [...] complications include novel onset, paroxysmal atrial fibrillation [[id number]: 5] & L-sided diplopia with potential hemineglect [...] hand rails). Baseline Mobility: Independent. Drives. 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 Time IN / OUT: 9129-6287 Total Evaluation Minutes, Physical Therapy: 25(eval, gtx1) Barbara Baldwin, PT Pager: [phone] Physical Therapy Inpatient Rehabilitation Department Consult Note [...] (L) 12/01/2019 Nutritional Intake Current bed: [facility] Assessment: Patient is with [...] Please contact JOHANNA NOBLES RN on pager [phone] or the wound care team at [phone] or pager [phone] skin and wound care concerns or questions. [...] making law. Any patient receiving carspousee at [facility] must abide by [place] law. The hierarchy [...] (i) The agent with financial power of sap technical developer or a conservator appointed in accordance with [...] Insurance: N/A Prescription Coverage: Yes [place] Other: No Primary Care Provider: France Lam MD [phone] Patient/Caregiver Goals of Treatment: Return home Potential Needs for Transition of Care: Rehab/SNF: Based on discussions with the multi-disciplinary healthcare team, the patient would benefit from SNF level of care at discharge. ?? I have met with the patient to discuss discharge planning needs. I have provided the [facility], Officeof Care Management letter from the Insurance Claims Assistant pertaining to rehab referrals. I have also [...] have [facility] to: ?? [facility] [address] [place] [address] ?? [address]. [address] , [place] [address] Note routed to Biological Science Technician who will communicate referrals to facilities and provide any required information. Home Health: If therapies recommend home w/ VNA, the patient has been provided a list of Home Health Agencies/DME vendors which serve their preferred geographic area. A letter describing our affiliations was reviewed with them and they were educated about their right to choose where referrals are placed. Patient requests referral to [facility]. PHONE: [phone] FAX: [phone] Referral routed to the Biological Science Technician for matching with agency/vendor and to provide [...] Insured w/ Medicare. [facility] [place], [place]. Son to transport at discharge Plan: Discharge dispo depending on patient's physical recovery; SNF vs home w/ VNA. A member of the Care Management team will continue to monitor progress, follow for continuity of care and assist with transition of care planning. Derian Pascual RN Pager: [phone] Plan of Care - Estefani Encarnacion RN [...] ??? Penicillins Pt doesn't remember reaction ??? Eqxiyml-Dhd-Smm Reductase Inhibitors Stiff neck, upset stomach, back [...] noncontrast head CT and CT of the [place] at 1600 hrs. We will [...] vision concerning for stroke. Patient presented to [facility] in transfer for a STEMI [...] ??? Penicillins Pt doesn't remember reaction ??? Bjjzefu-Ndc-Hxf Reductase Inhibitors Stiff neck, upset stomach, back [...] L Elbow flexion 5/5 R, 5/5 L Tool Designer LE: 5/5 R, 5/5 L Hip [...] PGY3 Neurology Resident 11/30/2019 Vascular Neurology Pager [phone] Standard [facility] Swallow Screen: This screen is [...] diet as medical provider deems appropriate. Consider UTILITIES AND MAINTENANCE SUPERVISOR consult for full evaluation and [...] Afib admitted s/p thrombolysis and Cath-Stent to [facility] who developed R sided [...] Mejia MD Department of Neurology [facility] Brief Op Note - Gretchen Yoon MD - 11/29/2019 8:38 PM EDT Brief Operative Note Patient Name: Angel Luis Salinas : [id number] MR#: [id number] Case Date: 11/29/2019 Surgeon: Surgeon(s) and Role: * Gretchen Yoon MD - Primary * Aidan Ward MD - Fellow Preoperative diagnosis: Inferior STEMI Postoperative diagnosis: Inferior STEMI Procedure(s) (LRB): CARDIAC CATHETERIZATION (N/A) Findings: Discrete 90% stenosis in the prox-to-mid RCA. Severe diffuse disease in the distal vessel. Discrete LCX stenosis in a non-culprit artery. S/P DESx3 in the fcheofae-cv-hiddbj RCA. Aspiration thrombectomy performed, and integrellin bolus [...] are i n the results section. CT [place] W STAT 11/30/2019 4:36 Res [...] athologist Signature Potassium 3.9 3.5 - 5.0 [facility] mmol/L [facility] Comment: Please note: ??Patients with [...] Organization Address City/State/[place] [address] (ABNORMAL) Hemogram (12/08/2019 12:39 PM EDT) Analysis Performed At Patho logist Time Signature WBC 9.9 (H) 4.0 - 9.5 [facility] x10(3)/[facility] LABORATORY RBC 4.51 (L) 4.58 - [place] OLIVIA 5.54 [facility] x10(6)/[facility] LABORATORY Hemoglobin 13.0 (L) 13.7 - [place] 16.5 gm/dL [facility] Hematocrit 40.5 40.5 - [place] 48.5 % [facility] MCV 89.8 82.9 - [facility] OLIVIA 93.1 [facility] LABORATORY MCH 28.8 27.5 - [place] 32.1 pg [facility] MCHC 32.1 32.0 - [place] 35.7 gm/dL [facility] Platelets 214 145 - 357 [facility] x10(3)/[facility] LABORATORY RDWSD 49.2 (H) 36.0 - [place] 45.0 [facility] LABORATORY RDWCV 15.1 (H) 11.4 - [place] 13.8 % [facility] MPV 12.1 7.6 - 12.9 [facility] OLIVIA [facility] LABORATORY nRBC % Auto 0.0 % [facility] LABORATORY nRBC Abs Auto 0.000 0.000 - [place] 0.000 [facility] x10(3)/[facility] LABORATORY Specimen Anatomical Collection Method Collection Time Receive d Time (Source) Location / / Volume Laterality Blood specimen 12/08/2019 12:39 0 (specimen) PM EDT 12:47 PM EDT Resulting Agency Comment Spec In Lab Gretchen Yoon MD HEMATOLOGY ORDERABLES Performing Organization Address City/State/ZIP Code Phon e Number [address] Hepatic Function Panel (12/08/2019 6:28 AM EDT) athologist Signature Total Protein 6.6 6.1 - 8.0 [place] gm/dL [facility] Albumin 3.2 3.2 - 5.2 [place] gm/dL [facility] AST 18 0 - 39 [place] unit/L [facility] ALT 13 0 - 55 [facility] OLIVIA unit/L [facility] Alk Phos 64 40 - 130 [facility] OL[place]IA unit/L [facility] Total 0.4 0.2 - 1.3 [place] Bilirubin mg/dL [facility] Bili, Direct 0.1 0.0 - 0.3 [facility] [place] mg/dL [facility] Specimen Anatomical Collection Method Collection Time Receive d Time (Source) Location / / Volume Laterality Blood specimen Venous Draw / 12/08/2019 6:28 AM 2019 6:36 (specimen) Unknown EDT AM EDT Resulting Agency Comment Spec In Lab Riki Stevens MD CHEMISTRY ORDERABLES Performing Organization Address City/[facility]/ZIP Code Phon e Number [address] (ABNORMAL) TSH (12/08/2019 6:28 AM EDT) athologist Signature TSH 5.27 (H) 0.27 - 4.20 [employer] [place] mcIU/mL [facility] Specimen Anatomical Collection Method Collection Time Receive d Time (Source) Location / / Volume Laterality Blood specimen Venous Draw / 12/08/2019 6:28 AM 2019 6:36 (specimen) Unknown EDT AM EDT Resulting Agency Comment Spec In Lab Darrell Glasgow MD CHEMISTRY ORDERABLES Performing Organization Address City/[facility]/ZIP Code Phon e Number [address] Potassium (12/08/2019 6:28 AM EDT) P athologist Signature Potassium 4.2 3.5 - 5.0 [facility] mmol/L [facility] Comment: Please note: ??Patients with [...] Organization Address City/State/[place] [address] (ABNORMAL) Differential, Automated (12/08/2019 12:43 AM EDT) Patholo gist Method Time Signature Neutrophils % 60.7 % [facility] Neutr Abs (ANC) 6.81 (H) 1.70 - [facility] 6.10 [facility] x10(3)/[facility] LABORATORY Lymphocytes % 23.4 % [facility] Lymphocytes Abs 2.6 0.9 - 3.2 [facility] x10(3)/[facility] LABORATORY Monocytes % 10.0 % [facility] Monocyte Abs 1.1 (H) 0.3 - 0.9 [facility] x10(3)/[facility] LABORATORY Eosinophils % 3.7 % [facility] Eosinophils Abs 0.4 0.0 - 0.4 [facility] x10(3)/[facility] LABORATORY Basophils % 1.2 % [facility] Basophils Abs 0.1 0.0 - 0.1 [facility] x10(3)/[facility] LABORATORY Immature Gran % 1.00 % [facility] Comment: Immature granulocytes(IG's)percentage an d absolute count will include metamyelocytes, myelocytes, and promyelo cytes. Blood smears from CBCs yielding IG's will be scanned manually for ana nagy. If this scan disagrees with the automated IG or if promyelocytes are not ed, a manual differential will be performed. Pita Gran Abs 0.11 (H) 0.00 - 0.04 x10(3)/[facility] LABORATORY Specimen Anatomical Collection Method Collection Time Receive d Time (Source) Location / / Volume Laterality Blood specimen 12/08/2019 12:43 0 (specimen) AM EDT 12:52 AM EDT Resulting Agency Comment Spec In Lab Riki Stevens MD HEMATOLOGY ORDERABLES Performing Organization Address City/State/[place] [address] (ABNORMAL) Hemogram (12/08/2019 12:43 AM EDT) Analysis Performed At Patho logist Time Signature WBC 11.2 (H) 4.0 - 9.5 [facility] x10(3)/[facility] LABORATORY RBC 4.46 (L) 4.58 - [facility] OLIVIA 5.54 [facility] x10(6)/[facility] LABORATORY Hemoglobin 13.1 (L) 13.7 - [facility] 16.5 gm/dL [facility] Hematocrit 40.5 40.5 - [facility] OLIVIA 48.5 % [facility] MCV 90.8 82.9 - [facility] 93.1 [facility] LABORATORY MCH 29.4 27.5 - [facility] OLIVIA 32.1 pg [facility] MCHC 32.3 32.0 - [facility] OLIVIA 35.7 gm/dL [facility] Platelets 215 145 - 357 [facility] x10(3)/[facility] LABORATORY RDWSD 49.8 (H) 36.0 - [facility] OLIVIA 45.0 [facility] LABORATORY RDWCV 15.2 (H) 11.4 - [facility] OLIVIA 13.8 % [facility] MPV 12.3 7.6 - 12.9 [facility] LABORATORY nRBC % Auto 0.0 % [facility]ORY nRBC Abs Auto 0.000 0.000 - [facility] Spling 0.000 [facility] x10(3)/[facility] LABORATORY Specimen Anatomical Collection Method Collection Time Receive d Time (Source) Location / / Volume Laterality Blood specimen 12/08/2019 12:43 0 (specimen) AM EDT 12:52 AM EDT Resulting Agency Comment Spec In Lab Riki Stevens MD HEMATOLOGY ORDERABLES Performing Organization Address City/State/ZIP Code Phon e Number [address] Magnesium (12/08/2019 12:43 AM EDT) athologist Signature Magnesium 1.01 0.69 - 1.07 [facility] mmol/L [facility] Specimen Anatomical Collection Method Collection Time Receive d Time (Source) Location / / Volume Laterality Blood specimen 12/08/2019 12:43 0 (specimen) AM EDT 12:52 AM EDT Resulting Agency Comment Spec In Lab Gretchen Yoon MD CHEMISTRY ORDERABLES Performing Organization Address City/State/Z[place] [address] (ABNORMAL) BMP w/fasting Glucose (12/08/2019 12:43 AM EDT) P athologist Signature Glucose 106 (H) 65 - 99 [facility] Fasting mg/dL [facility] Comment: ?Fasting* Glucose Interpretive C [...] of Diabetes Mellitus, Position Statement from the [place] [employer]. ??Diabete s Care, Volume 33, Supplement 1, Jul 2009 BUN 14 10 - 20 mg/dL [facility] Creatinine 1.16 0.80 - 1.50 mg/dL [facility] Sodium 134 (L) 135 - 145 mmol/L [facility] Potassium 4.0 3.5 - 5.0 mmol/L [facility] Comment: Please note: ??Patients with WBC >100,00 0 may have falsely elevated Potassium levels. ??For accurate Potassium quantif ication in these patients send serum separator tube (gold top) for subsequent determinations. ??Contact the Clinical Chemistry Laboratory if there are any qu estions. Chloride 99 98 - 107 mmol/L [facility] CO2 19 (L) 22 - 31 mmol/L [facility] Anion Gap 16 (H) 5 - 15 mmol/L [facility] Calcium 8.9 8.5 - 10.5 mg/dL [facility] Estimated GFR 62 >=60 mL/min/1.73 m?? [facility] Comment: The eGFR was calculated using the CKD-EP I equation. As with all creatinine based estimates of kidney function, eGFR values calculated with the CKD-EPI equation are not accurate in patients wi th acute kidney failure, extremes of body mass or the acutely ill. http://[employer]/[facility] eGFR 72 >=60 mL/min/1.73 m?? [facility] Comment: The eGFR was calculated using the CKD-EP I equation. As with all creatinine based estimates of kidney function, eGFR values calculated with the CKD-EPI equation are not accurate in patients wi th acute kidney failure, extremes of body mass or the acutely ill. http://[employer]/[facility]kf Specimen Anatomical Collection Method Collection Time Receive d Time (Source) Location / / Volume Laterality Blood specimen 12/08/2019 12:43 0 (specimen) AM EDT 12:52 AM EDT Resulting Agency Comment Spec In Lab Gretchen Yoon MD CHEMISTRY ORDERABLES Performing Organization Address City/State/[place] [address] Heparin (unfractionated) Level (12/08/2019 12:43 AM EDT) athologist Signature Heparin UFH 0.60 IU/mL [facility] Comment: Guidelines for therapeutic unfractionate [...] Organization Address City/State/[place] [address] Potassium (12/07/2019 8:39 PM EDT) athologist Signature Potassium 4.1 3.5 - 5.0 [facility] mmol/L [facility] LABORATORY Comment: Please note: ??Patients with [...] Organization Address City/[facility]/[place] [address] Potassium (12/07/2019 4:02 PM EDT) P athologist Signature Potassium 4.0 3.5 - 5.0 [facility] [place] mmol/L [facility] LABORATORY Comment: Please note: ??Patients with [...] Organization Address City/[facility]/[place] [address] (ABNORMAL) Hemogram (12/07/2019 4:02 PM EDT) Analysis Performed At Patho logist Time Signature WBC 17.4 (H) 4.0 - 9.5 [place] OLIV[place] x10(3)/[facility] LABORATORY RBC 4.58 4.58 - M[place] OLIVIA 5.54 [facility] x10(6)/[facility] LABORATORY Hemoglobin 13.5 (L) 13.7 - [place] OLIVIA 16.5 gm/dL [facility] LABORATORY Hematocrit 40.8 40.5 - [place] OLIVIA 48.5 % [facility] LABORATORY MCV 89.1 82.9 - [place] OLIV[place] 93.1 [facility] LABORATORY MCH 29.5 27.5 - [place] OLIVIA 32.1 pg [facility] LABORATORY MCHC 33.1 32.0 - [place] 35.7 gm/dL [facility] LABORATORY Platelets 238 145 - 357 [place]IV[place] x10(3)/[facility] LABORATORY RDWSD 48.8 (H) 36.0 - [place] OLIVIA 45.0 [facility] LABORATORY RDWCV 15.0 (H) 11.4 - [facility] 13.8 % [facility] LABORATORY MPV 12.2 7.6 - 12.9 [facility] LABORATORY nRBC % Auto 0.0 % [facility] LABORATORY nRBC Abs Auto 0.000 0.000 - MELINA MARSHOLIVIA 0.000 [facility] x10(3)/[facility] LABORATORY Specimen Anatomical Collection Method Collection Time Receive d Time (Source) Location / / Volume Laterality Blood specimen 12/07/2019 4:02 PM 020 4:08 (specimen) EDT PM EDT Resulting Agency Comment Spec In Lab Gretchen Yoon MD HEMATOLOGY ORDERABLES Performing Organization Address City/[facility] [place] [address] EKG 12 Lead (12/07/2019 [...] (Bezet) Calculated P -12 degrees MUSE SYSTEM [place] Calculated R 10 degrees MUSE SYSTEM [place] Calculated T -138 degrees MUSE SYSTEM [place] INTERPRETATION Supraventricular tachycardia MUSE SYSTEM Low voltage [...] athologist Signature Potassium 4.2 3.5 - 5.0 [facility] mmol/L [facility] LABORATORY Comment: Please note: ??Patients with [...] Organization Address City/[facility] [place] [address] Heparin (unfractionated) Level (12/07/2019 11:43 AM EDT) athologist Signature Heparin UFH 0.59 IU/mL [facility] LABORATORY Comment: Guidelines for therapeutic [...] Lagos MD HEMATOLOGY ORDERABLES Performing Organization Address [facility]/[place]IP [place] [address] Heparin (unfractionated) Level (12/07/2019 5:20 AM EDT) P athologist Signature Heparin UFH 0.53 IU/mL [facility] LABORATORY Comment: Guidelines for therapeutic [...] Organization Address City/State/[place] [address] (ABNORMAL) Differential, Automated (12/07/2019 5:20 AM EDT) Patholo gist Method Time Signature Neutrophils % 62.4 % [facility] LABORATORY Neutr Abs (ANC) 5.46 1.70 - [facility] 6.10 [facility] x10(3)/[facility] LABORATORY Lymphocytes % 20.3 % [facility] LABORATORY Lymphocytes Abs 1.8 0.9 - 3.2 [facility] x10(3)/[facility] LABORATORY Monocytes % 11.0 % [facility] LABORATORY Monocyte Abs 1.0 (H) 0.3 - 0.9 [facility] x10(3)/[facility] LABORATORY Eosinophils % 4.5 % [facility] LABORATORY Eosinophils Abs 0.4 0.0 - 0.4 [facility] x10(3)/[facility] LABORATORY Basophils % 0.9 % [facility] LABORATORY Basophils Abs 0.1 0.0 - 0.1 [facility] x10(3)/[facility] LABORATORY Immature Gran % 0.90 % [facility] LABORATORY Comment: Immature granulocytes(IG's)percentage an d absolute count will include metamyelocytes, myelocytes, and promyelo cytes. Blood smears from CBCs yielding IG's will be scanned manually for concor dance. If this scan disagrees with the automated IG or if promyelocytes are not ed, a manual differential will be performed. Pita Gran Abs 0.08 (H) 0.00 - 0.04 x10(3)/[facility] LABORATORY Specimen Anatomical Collection Method Collection Time Receive d Time (Source) Location / / Volume Laterality Blood specimen 12/07/2019 5:20 AM 020 5:37 (specimen) EDT AM EDT Resulting Agency Comment Spec In Lab Riki Stevens MD HEMATOLOGY ORDERABLES Performing Organization Address City/State/ZIP Code Phon e Number [place] [id number] (ABNORMAL) Hemogram (12/07/2019 5:20 AM EDT) Analysis Performed At Patho logist Time Signature WBC 8.7 4.0 - 9.5 [facility] x10(3)/[facility] LABORATORY RBC 4.20 (L) 4.58 - [facility] 5.54 [facility] x10(6)/[facility] LABORATORY Hemoglobin 12.3 (L) 13.7 - [facility] 16.5 gm/dL [facility] LABORATORY Hematocrit 37.4 (L) 40.5 - [facility] 48.5 % [facility] MCV 89.0 82.9 - [facility] 93.1 fL [facility] LAB[facility]AT[facility] MCH 29.3 27.5 - [facility] 32.1 pg [facility] LABORATORY MCHC 32.9 32.0 - M[facility] MONAE 35.7 gm/dL [facility] LABORATORY Platelets 181 145 - 357 MELINA MONAE x10(3)/[facility] LABORATORY RDWSD 47.7 (H) 36.0 - MELINA MONAE 45.0 [facility] LABORATORY RDWCV 14.8 (H) 11.4 - [facility] OLIVIA 13.8 % [facility] LABORATORY MPV 12.3 7.6 - 12.9 M[place] OLIVIA [facility] LABORATORY nRBC % Auto 0.0 % [facility] LABORATORY nRBC Abs Auto 0.000 0.000 - MELINA MONAE 0.000 [facility] x10(3)/[facility] LABORATORY Specimen Anatomical Collection Method Collection Time Receive d Time (Source) Location / / Volume Laterality Blood specimen 12/07/2019 5:20 AM 020 5:37 (specimen) EDT AM EDT Resulting Agency Comment Spec In Lab Riki Stevens MD HEMATOLOGY ORDERABLES Performing Organization Address City/State/ZIP Code Phon e Number [address] Magnesium (12/07/2019 5:20 AM EDT) P athologist Signature Magnesium 0.89 0.69 - 1.07 [facility] mmol/L [facility] LABORATORY Specimen Anatomical Collection Method Collection Time Receive d Time (Source) Location / / Volume Laterality Blood specimen 12/07/2019 5:20 AM 020 5:37 (specimen) EDT AM EDT Resulting Agency Comment Spec In Lab Gretchen Yoon MD CHEMISTRY ORDERABLES Performing Organization Address City/State/ZIP Code Phon e Number [address] (ABNORMAL) BMP w/fasting Glucose (12/07/2019 5:20 AM EDT) P athologist Signature Glucose 100 (H) 65 - 99 [facility] Fasting mg/dL [facility] LABORATORY Comment: ?Fasting* Glucose Interpretive C [...] of Diabetes Mellitus, Position Statement from the [place] [employer]. ??Diabete s Care, Volume 33, Supplement 1, Jul 2009 BUN 14 10 - 20 mg/dL [facility] LABORATORY Creatinine 0.83 0.80 - 1.50 mg/dL [facility] LABORATORY Sodium 135 135 - 145 mmol/L [facility] LABORATORY Potassium 3.8 3.5 - 5.0 mmol/L [facility] LABORATORY Comment: Please note: ??Patients with WBC >100,00 0 may have falsely elevated Potassium levels. ??For accurate Potassium quantif ication in these patients send serum separator tube (gold top) for subsequent determinations. ??Contact the Clinical Chemistry Laboratory if there are any qu estions. Chloride 101 98 - 107 mmol/L [facility] LABORATORY CO2 20 (L) 22 - 31 mmol/L [facility] LABORATORY Anion Gap 14 5 - 15 mmol/L [facility] LABORATORY Calcium 8.8 8.5 - 10.5 mg/dL [facility] LABORATORY Estimated GFR 87 >=60 mL/min/1.73 m?? [facility] LABORATORY Comment: The eGFR was calculated using the CKD-EP I equation. As with all creatinine based estimates of kidney function, eGFR values calculated with the CKD-EPI equation are not accurate in patients wi th acute kidney failure, extremes of body mass or the acutely ill. http://[employer]/DHMCnkf eGFR 101 >=60 mL/min/1.73 m?? [facility] LABORATORY Comment: The eGFR was calculated using the CKD-EP I equation. As with all creatinine based estimates of kidney function, eGFR values calculated with the CKD-EPI equation are not accurate in patients wi th acute kidney failure, extremes of body mass or the acutely ill. http://[employer].canvs.co/DHMCnkf Specimen Anatomical Collection Method Collection Time Receive d Time (Source) Location / / Volume Laterality Blood specimen 12/07/2019 5:20 AM 020 5:37 (specimen) EDT AM EDT Resulting Agency Comment Spec In Lab Gretchen Yoon MD CHEMISTRY ORDERABLES Performing Organization Address City/[facility] [place] [address] Heparin (unfractionated) Level (12/06/2019 10:14 PM EDT) athologist Signature Heparin UFH 0.29 IU/mL [facility] LABORATORY Comment: Guidelines for therapeutic [...] Organization Address City/[facility]/[place] [address] Head wo Contrast [...] For questions regarding this report, please contact [facility] number below. ? Electronically signed by: Merari Collins [facility] ([phone]), at 12/06/2019 10:06 PM Narrative 12/06/2019 10:06 [...] number below. Electronically signed by: Merari Collins [facility] ([phone]), at 12/06/2019 10:06 PM [place] Lagos MD IMG CT ORDERABLES (ABNORMAL) Hemogram (12/06/2019 4:20 PM EDT) Analysis Performed At Patho logist Time Signature WBC 10.4 (H) 4.0 - 9.5 [facility] x10(3)/[facility] LABORATORY RBC 4.32 (L) 4.58 - [facility] OLIVIA 5.54 [facility] x10(6)/[facility] LABORATORY Hemoglobin 12.5 (L) 13.7 - [facility] 16.5 gm/dL [facility] LABORATORY Hematocrit 38.4 (L) 40.5 - [facility] 48.5 % [facility] LABORATORY MCV 88.9 82.9 - [facility] 93.1 [facility] LABORATORY MCH 28.9 27.5 - M[place] OLIVIA 32.1 pg [facility] LABORATORY MCHC 32.6 32.0 - [facility] 35.7 gm/dL [facility] LABORATORY Platelets 194 145 - 357 [facility] x10(3)/[facility] LABORATORY RDWSD 46.9 (H) 36.0 - [facility] 45.0 [facility] LABORATORY RDWCV 14.6 (H) 11.4 - [facility] OLIVIA 13.8 % [facility] LABORATORY MPV 11.9 7.6 - 12.9 [facility] OLIVIA [facility] LABORATORY nRBC % Auto 0.0 % [facility] LABORATORY nRBC Abs Auto 0.000 0.000 - [facility] OLIVIA 0.000 [facility] x10(3)/[facility] LABORATORY Specimen Anatomical Collection Method Collection Time Receive d Time (Source) Location / / Volume Laterality Blood specimen 12/06/2019 4:20 PM 020 4:31 (specimen) EDT PM EDT Resulting Agency Comment Spec In Lab Gretchen Yoon MD HEMATOLOGY ORDERABLES Performing Organization Address City/State/[place] [address] Heparin (unfractionated) Level (12/06/2019 4:20 PM EDT) P athologist Signature Heparin UFH 0.30 IU/mL [facility] LABORATORY Comment: Guidelines for therapeutic [...] Organization Address City/State/[place] [address] Heparin (unfractionated) Level (12/06/2019 10:02 AM EDT) athologist Signature Heparin UFH <0.04 IU/mL [facility] LABORATORY Comment: Guidelines for therapeutic [...] Address City/State/ZIP Code Phon e Number [address] Magnesium (12/06/2019 3:36 AM EDT) P athologist Signature Magnesium 0.86 0.69 - 1.07 [facility] mmol/L [facility] LABORATORY Specimen Anatomical Collection Method Collection Time Receive d Time (Source) Location / / Volume Laterality Blood specimen 12/06/2019 3:36 AM 020 3:45 (specimen) EDT AM EDT Resulting Agency Comment Spec In Lab Gretchen Yoon MD CHEMISTRY ORDERABLES Performing Organization Address City/State/Z[place] [address] (ABNORMAL) BMP w/fasting Glucose (12/06/2019 3:36 AM EDT) P athologist Signature Glucose 103 (H) 65 - 99 [facility] Fasting mg/dL [facility] LABORATORY Comment: ?Fasting* Glucose Interpretive C [...] of Diabetes Mellitus, Position Statement from the [place] [employer]. ??Diabete s Care, Volume 33, Supplement 1, Jul 2009 BUN 20 10 - 20 mg/dL [facility] LABORATORY Creatinine 0.88 0.80 - 1.50 mg/dL [facility] LABORATORY Sodium 136 135 - 145 mmol/L [facility] LABORATORY Potassium 4.0 3.5 - 5.0 mmol/L [facility] LABORATORY Comment: Please note: ??Patients with WBC >100,00 0 may have falsely elevated Potassium levels. ??For accurate Potassium quantif ication in these patients send serum separator tube (gold top) for subsequent determinations. ??Contact the Clinical Chemistry Laboratory if there are any qu estions. Chloride 103 98 - 107 mmol/L [facility] LABORATORY CO2 19 (L) 22 - 31 mmol/L [facility] LABORATORY Anion Gap 14 5 - 15 mmol/L [facility] LABORATORY Calcium 8.7 8.5 - 10.5 mg/dL [facility] LABORATORY Estimated GFR 85 >=60 mL/min/1.73 m?? [facility] LABORATORY Comment: The eGFR was calculated using the CKD-EP I equation. As with all creatinine based estimates of kidney function, eGFR values calculated with the CKD-EPI equation are not accurate in patients wi th acute kidney failure, extremes of body mass or the acutely ill. http://[employer]/[facility] TULSAnkf eGFR 99 >=60 mL/min/1.73 m?? [facility] LABORATORY Comment: The eGFR was calculated using the CKD-EP I equation. As with all creatinine based estimates of kidney function, eGFR values calculated with the CKD-EPI equation are not accurate in patients wi th acute kidney failure, extremes of body mass or the acutely ill. http://[employer]/[facility] TULSAnkf Specimen Anatomical Collection Method Collection Time Receive d Time (Source) Location / / Volume Laterality Blood specimen 12/06/2019 3:36 AM 020 3:45 (specimen) EDT AM EDT Resulting Agency Comment Spec In Lab Gretchen Yoon MD CHEMISTRY ORDERABLES Performing Organization Address City/State/Z[place] [address] (ABNORMAL) Hemogram (12/06/2019 3:36 AM EDT) Analysis Performed At Patho logist Time Signature WBC 9.2 4.0 - 9.5 [facility] x10(3[facility] LABORATORY RBC 3.99 (L) 4.58 - MELINA OLIVIA 5.54 [facility] x10(6)/[facility] LABORATORY Hemoglobin 11.9 (L) 13.7 - M[place] OLIVIA 16.5 gm/dL [facility] LABORATORY Hematocrit 35.5 (L) 40.5 - [facility] 48.5 % [facility] LABORATORY MCV 89.0 82.9 - [facility] 93.1 [facility] LABORATORY MCH 29.8 27.5 - MELINA OLIVIA 32.1 pg [facility] LABORATORY MCHC 33.5 32.0 - M[place] OLIVIA 35.7 gm/dL [facility] LABORATORY Platelets 164 145 - 357 [facility] x10(3)/[facility] LABORATORY RDWSD 47.6 (H) 36.0 - MELINA OLIVIA 45.0 [facility] LABORATORY RDWCV 14.7 (H) 11.4 - [facility] OLIVIA 13.8 % [facility] LABORATORY MPV 11.9 7.6 - 12.9 [facility] LABORATORY nRBC % Auto 0.0 % [facility] LABORATORY nRBC Abs Auto 0.000 0.000 - MELINA OLIVIA 0.000 [facility] x10(3)/[facility] LABORATORY Specimen Anatomical Collection Method Collection Time Receive d Time (Source) Location / / Volume Laterality Blood specimen 12/06/2019 3:36 AM 020 3:45 (specimen) EDT AM EDT Resulting Agency Comment Spec In Lab Gretchen Yoon MD HEMATOLOGY ORDERABLES Performing Organization Address City/[facility]/[place] [address] (ABNORMAL) Differential, Automated (12/05/2019 10:52 PM EDT) [facility] Method Time Signature Neutrophils % 61.9 % [facility] LABORATORY Neutr Abs (ANC) 6.02 1.70 - [facility] 6.10 [facility] x10(3)/[facility] LABORATORY Lymphocytes % 22.4 % [facility] LABORATORY Lymphocytes Abs 2.2 0.9 - 3.2 [facility] x10(3)/[facility] LABORATORY Monocytes % 10.4 % [facility] LABORATORY Monocyte Abs 1.0 (H) 0.3 - 0.9 [facility] x10(3)/[facility] LABORATORY Eosinophils % 4.1 % [facility] LABORATORY Eosinophils Abs 0.4 0.0 - 0.4 [facility] x10(3)/[facility] LABORATORY Basophils % 0.7 % [facility] LABORATORY Basophils Abs 0.1 0.0 - 0.1 [facility] x10(3)/[facility] LABORATORY Immature Gran % 0.50 % [facility] LABORATORY Comment: Immature granulocytes(IG's)percentage an d absolute count will include metamyelocytes, myelocytes, and promyelo cytes. Blood smears from CBCs yielding IG's will be scanned manually for concor dance. If this scan disagrees with the automated IG or if promyelocytes are not ed, a manual differential will be performed. Pita Gran Abs 0.05 (H) 0.00 - 0.04 x10(3)/[facility] LABORATORY Specimen Anatomical Collection Method Collection Time Receive d Time (Source) Location / / Volume Laterality Blood specimen 12/05/2019 10:52 0 (specimen) PM EDT 10:59 PM EDT Resulting Agency Comment Spec In Lab Mandi Barrera MD HEMATOLOGY ORDERABLES Performing Organization Address City/State/[place] [address] (ABNORMAL) Hemogram (12/05/2019 10:52 PM EDT) Analysis Performed At [facility] logist Time Signature WBC 9.7 (H) 4.0 - 9.5 [facility] x10(3)/[facility] LABORATORY RBC 4.07 (L) 4.58 - MELINA [place] 5.54 [facility] x10(6)/[facility] LABORATORY Hemoglobin 11.9 (L) 13.7 - M[facility]INA [place] 16.5 gm/dL [facility] LABORATORY Hematocrit 36.4 (L) 40.5 - M[facility]INA [place] 48.5 % [facility] LABORATORY MCV 89.4 82.9 - [facility] OLIVIA 93.1 [facility] LABORATORY MCH 29.2 27.5 - MELINA [place] 32.1 pg [facility] LABORATORY MCHC 32.7 32.0 - MELINA [place] 35.7 gm/dL [facility] LABORATORY Platelets 167 145 - 357 [facility] x10(3)/[facility] LABORATORY RDWSD 47.7 (H) 36.0 - MELINA [place] 45.0 [facility] RDWCV 14.6 (H) 11.4 - [facility] 13.8 % [facility] LABORATORY MPV 12.1 7.6 - 12.9 [facility] LABORATORY nRBC % Auto 0.0 % [facility] LABORATORY nRBC Abs Auto 0.000 0.000 - [facility] OLIVIA 0.000 [facility] x10(3)/[facility] LABORATORY Specimen Anatomical Collection Method Collection Time Receive d Time (Source) Location / / Volume Laterality Blood specimen 12/05/2019 10:52 0 (specimen) PM EDT 10:59 PM EDT Resulting Agency Comment Spec In Lab Mandi Barrera MD HEMATOLOGY ORDERABLES Performing Organization Address City/State/[place] [address] Heparin (unfractionated) Level (12/05/2019 10:52 PM EDT) P athologist Signature Heparin UFH <0.04 IU/mL [facility] LABORATORY Comment: Guidelines for therapeutic [...] Organization Address City/State/[place] [address] MRI Brain wwo Contrast [...] original. EXAMINATION: MRI BRAIN WWO CONTRAST (GEN ITTI) CLINICAL HISTORY: Intracranial hemorrhag e, follow up [...] Time Signature WBC 8.7 4.0 - 9.5 [facility] x10(3)/[facility] LABORATORY RBC 4.17 (L) 4.58 - [facility] 5.54 [facility] x10(6)/[facility] LABORATORY Hemoglobin 12.4 (L) 13.7 - [facility] 16.5 gm/dL [facility] LABORATORY Hematocrit 37.0 (L) 40.5 - [facility] 48.5 % [facility] LABORATORY MCV 88.7 82.9 - [facility] 93.1 [facility] LABORATORY MCH 29.7 27.5 - [facility] 32.1 pg [facility]AT[facility] MCHC 33.5 32.0 - [facility] 35.7 gm/dL [facility] LABORAT[facility] Platelets 173 145 - 357 [facility] x10(3)/[facility] LABORATORY RDWSD 47.3 (H) 36.0 - [facility] 45.0 [facility] LABORATORY RDWCV 14.6 (H) 11.4 - [facility] 13.8 % [facility] LABORATORY MPV 12.1 7.6 - 12.9 [facility] LABORATORY nRBC % Auto 0.0 % [facility] LABORATORY nRBC Abs Auto 0.000 0.000 - [facility] 0.000 [facility] x10(3)/[facility] LABORATORY Specimen Anatomical Collection Method Collection Time Receive d Time (Source) Location / / Volume Laterality Blood specimen 12/05/2019 1:00 PM 020 1:13 (specimen) EDT PM EDT Resulting Agency Comment Spec In Lab Gretchen Yoon MD HEMATOLOGY ORDERABLES Performing Organization Address City/State/[place] [address] EKG 12 Lead (12/05/2019 10:52 AM EDT) Component Value Ref Range Test Analysis Performed Pathologis t Method Time At Signature Ventricular rate 72 BPM MUSE SYSTEM Atrial Rate 72 BPM MUSE SYSTEM P-R Interval 138 ms MUSE SYSTEM QRS Duration 96 ms MUSE SYSTEM Q-T Interval 396 ms MUSE SYSTEM QTC Calculated 433 ms MUSE SYSTEM (Bezet) Calculated P [place] 65 degrees MUSE SYSTEM Calculated R [place] 13 degrees MUSE SYSTEM Calculated T [place] 0 degrees MUSE SYSTEM INTERPRETATION Sinus rhythm Occasional Premature ventricular complexe s MUSE SYSTEM Possible Inferior infarct (cited on or before 29-NOV-2019) Abnormal ECG When compared with ECG of 04-DEC-2019 10:43, Sinus rhythm has replaced Atrial fibrillation Vent. rate has decreased BY ??86 BPM Confirmed by MD Ceja Daniel ([id number]) on 12/05/2019 3:55:22 PM Specimen Anatomical Collection Method Collection Time Receive d Time (Source) Location / / Volume Laterality 12/05/2019 10:52 12/05/2019 3:55 AM EDT PM EDT Paris Lagos MD ECG ORDERABLES Performing Organization Address City/State/ZIP Code Phon e Number MUSE SYSTEM Duplex Study for DVT, Bilat legs (12/05/2019 7:00 AM EDT) Component Value Ref Test Analysis Performed At [facility] Range Method Time Signature VB Text Department: Vascular Surgery Lab VASCUBASE Report Patient: [id number] (ANGEL LUIS SALINAS) CPT: 25010 ICD10: I26.99 Referring Physician: GRETCHEN YOON ?? [...] athologist Signature Magnesium 0.87 0.69 - 1.07 [facility] mmol/L [facility] Specimen Anatomical Collection Method Collection Time Receive d Time (Source) Location / / Volume Laterality Blood specimen 12/05/2019 4:18 AM 020 4:31 (specimen) EDT AM EDT Resulting Agency Comment Spec In Lab Gretchen Yoon MD CHEMISTRY ORDERABLES Performing Organization Address City/[facility]/[place]IP [place] [address] (ABNORMAL) BMP w/fasting Glucose (12/05/2019 4:18 AM EDT) P athologist Signature Glucose 104 (H) 65 - 99 [facility] Fasting mg/dL [facility] Comment: ?Fasting* Glucose Interpretive C [...] of Diabetes Mellitus, Position Statement from the [place] [employer]. ??Diabete s Care, Volume 33, Supplement 1, Jul 2009 BUN 21 (H) 10 - 20 mg/dL [facility] Creatinine 1.02 0.80 - 1.50 mg/dL [facility] Sodium 136 135 - 145 mmol/L [facility] Potassium 3.9 3.5 - 5.0 mmol/L [facility] Comment: Please note: ??Patients with WBC >100,00 0 may have falsely elevated Potassium levels. ??For accurate Potassium quantif ication in these patients send serum separator tube (gold top) for subsequent determinations. ??Contact the Clinical Chemistry Laboratory if there are any qu estions. Chloride 103 98 - 107 mmol/L [facility] CO2 21 (L) 22 - 31 mmol/L [facility] Anion Gap 12 5 - 15 mmol/L [facility] Calcium 8.8 8.5 - 10.5 mg/dL [facility] Estimated GFR 73 >=60 mL/min/1.73 m?? [facility] Comment: The eGFR was calculated using the CKD-EP I equation. As with all creatinine based estimates of kidney function, eGFR values calculated with the CKD-EPI equation are not accurate in patients wi th acute kidney failure, extremes of body mass or the acutely ill. http://[employer]/[facility]ULSAnkf eGFR 84 >=60 mL/min/1.73 m?? [facility] Comment: The eGFR was calculated using the CKD-EP I equation. As with all creatinine based estimates of kidney function, eGFR values calculated with the CKD-EPI equation are not accurate in patients wi th acute kidney failure, extremes of body mass or the acutely ill. http://[employer]/[facility]ULSAnkf Specimen Anatomical Collection Method Collection Time Receive d Time (Source) Location / / Volume Laterality Blood specimen 12/05/2019 4:18 AM 020 4:31 (specimen) EDT AM EDT Resulting Agency Comment Spec In Lab Gretchen Yoon MD CHEMISTRY ORDERABLES Performing Organization Address City/State/[place] [address] (ABNORMAL) Hemogram (12/05/2019 4:18 AM EDT) Analysis Performed At Patho logist Time Signature WBC 8.6 4.0 - 9.5 [facility] x10(3)/[facility] LABORATORY RBC 4.28 (L) 4.58 - [place] OLIVIA 5.54 [facility] x10(6)/[facility] LABORATORY Hemoglobin 12.4 (L) 13.7 - [facility] 16.5 gm/dL [facility] Hematocrit 37.3 (L) 40.5 - [facility] 48.5 % [facility] MCV 87.1 82.9 - [facility] 93.1 [facility] LABORATORY MCH 29.0 27.5 - [facility] 32.1 pg [facility] MCHC 33.2 32.0 - [facility] 35.7 gm/dL [facility] Platelets 163 145 - 357 [facility] x10(3)/[facility] LABORATORY RDWSD 46.4 (H) 36.0 - [facility] 45.0 [facility] LABORATORY RDWCV 14.4 (H) 11.4 - [facility] 13.8 % [facility] MPV 11.7 7.6 - 12.9 [facility] LABORATORY nRBC % Auto 0.0 % [facility] nRBC Abs Auto 0.000 0.000 - [facility] 0.000 [facility] x10(3)/[facility] LABORATORY Specimen Anatomical Collection Method Collection Time Receive d Time (Source) Location / / Volume Laterality Blood specimen 12/05/2019 4:18 AM 020 4:31 (specimen) EDT AM EDT Resulting Agency Comment Spec In Lab Grecthen Yoon MD HEMATOLOGY ORDERABLES Performing Organization Address City/State/[place] [address] Cardiac for Morphology [...] For questions regarding this report, please contact [facility] number below. ? Electronically signed by: Roselyn Luciano [facility] ([phone]), at 12/04/2019 6:16 PM Narrative 12/04/2019 6:16 [...] from neck/greatest puja meter to back wall: SAMOAN 91, CAU 13: ??19 mm CORTES ??1, [...] from neck/greatest puja meter to back wall: SAMOAN 91, CAU 13: 19 mm CORTES 1, [...] number below. Electronically signed by: Roselyn Luciano, [facility] ([phone]), at 12/04/2019 6:16 PM Gretchen Yoon MD IMG CT ORDERABLES (ABNORMAL) Hemogram (12/04/2019 12:55 PM EDT) Analysis Performed At Patho logist Time Signature WBC 8.9 4.0 - 9.5 [facility] OLIVIA x10(3)/[facility] LABORATORY RBC 4.69 4.58 - [facility] OLIVIA 5.54 [facility] x10(6)/[facility] LABORATORY Hemoglobin 13.5 (L) 13.7 - [facility] 16.5 gm/dL [facility] Hematocrit 41.7 40.5 - [facility] OLIVIA 48.5 % [facility] MCV 88.9 82.9 - [facility] 93.1 fL [facility] MCH 28.8 27.5 - [place] [facility] 32.1 pg [facility] MCHC 32.4 32.0 - [facility] OLIVIA 35.7 gm/dL [facility] Platelets 196 145 - 357 [facility] x10(3)/[facility] LABORATORY RDWSD 46.7 (H) 36.0 - [place] 45.0 [facility] LABORATORY RDWCV 14.5 (H) 11.4 - [facility] 13.8 % [facility] MPV 12.1 7.6 - 12.9 [facility] MONAE [facility] LABORATORY nRBC % Auto 0.0 % [facility] nRBC Abs Auto 0.000 0.000 - [place] MONAE 0.000 [facility] x10(3)/[facility] LABORATORY Specimen Anatomical Collection Method Collection Time Receive d Time (Source) Location / / Volume Laterality Blood specimen 12/04/2019 12:55 0 1:06 (specimen) PM EDT PM EDT Resulting Agency Comment Spec In Lab Gretchen Yoon MD HEMATOLOGY ORDERABLES Performing Organization Address City/[facility]/[place] [address] EKG 12 Lead (12/04/2019 10:43 AM EDT) Component Value Ref Range Test Analysis Performed Pathologis t Method Time At Signature Ventricular rate 158 BPM MUSE SYSTEM Atrial Rate 102 BPM MUSE SYSTEM QRS Duration 92 ms MUSE SYSTEM Q-T Interval 294 ms MUSE SYSTEM QTC Calculated 476 ms MUSE SYSTEM (Bezet) Calculated R [place] 17 degrees MUSE SYSTEM Calculated T [place] 90 degrees MUSE SYSTEM INTERPRETATION Atrial fibrillation with rapid ventricular response MUSE SYSTEM Possible Inferior infarct (cited on or before 29-NOV-2019) Abnormal ECG When compared with ECG of 30-NOV-2019 21:07, Atrial fibrillation has replaced Sinus rhythm Vent. rate has increased BY ??65 BPM Confirmed by MD Ceja Daniel ([id number]) on 12/05/2019 8:59:44 AM Specimen Anatomical Collection Method Collection Time Receive d Time (Source) Location / / Volume Laterality 12/04/2019 10:43 12/05/2019 8:59 AM EDT AM EDT Gretchen Yoon MD ECG ORDERABLES Performing Organization Address City/State/ZIP Code Phon e Number MUSE SYSTEM (ABNORMAL) Magnesium (12/04/2019 4:28 AM EDT) P athologist Signature Magnesium 1.17 (H) 0.69 - 1.07 [facility] mmol/L [facility] Specimen Anatomical Collection Method Collection Time Receive d Time (Source) Location / / Volume Laterality Blood specimen 12/04/2019 4:28 AM 020 4:40 (specimen) EDT AM EDT Resulting Agency Comment Spec In Lab Gretchen Yoon MD CHEMISTRY ORDERABLES Performing Organization Address City/State/[place] [address] (ABNORMAL) BMP w/fasting Glucose (12/04/2019 4:28 AM EDT) athologist Signature Glucose 108 (H) 65 - 99 [facility] Fasting mg/dL [facility] Comment: ?Fasting* Glucose Interpretive C [...] of Diabetes Mellitus, Position Statement from the [place] [employer]. ??Diabete s Care, Volume 33, Supplement 1, Jul 2009 BUN 19 10 - 20 mg/dL [facility] Creatinine 0.89 0.80 - 1.50 mg/dL [facility] Sodium 135 135 - 145 mmol/L [facility] Potassium 4.2 3.5 - 5.0 mmol/L [facility] Comment: Please note: ??Patients with WBC >100,00 0 may have falsely elevated Potassium levels. ??For accurate Potassium quantif ication in these patients send serum separator tube (gold top) for subsequent determinations. ??Contact the Clinical Chemistry Laboratory if there are any qu estions. Chloride 104 98 - 107 mmol/L [facility] CO2 19 (L) 22 - 31 mmol/L [facility] Anion Gap 12 5 - 15 mmol/L [facility] Calcium 8.5 8.5 - 10.5 mg/dL [facility] Estimated GFR 85 >=60 mL/min/1.73 m?? [facility] Comment: The eGFR was calculated using the CKD-EP I equation. As with all creatinine based estimates of kidney function, eGFR values calculated with the CKD-EPI equation are not accurate in patients wi th acute kidney failure, extremes of body mass or the acutely ill. http://[employer]/[facility]SAnk eGFR 98 >=60 mL/min/1.73 m?? [facility] Comment: The eGFR was calculated using the CKD-EP I equation. As with all creatinine based estimates of kidney function, eGFR values calculated with the CKD-EPI equation are not accurate in patients wi th acute kidney failure, extremes of body mass or the acutely ill. http://[employer]/[facility]SAnkf Specimen Anatomical Collection Method Collection Time Receive d Time (Source) Location / / Volume Laterality Blood specimen 12/04/2019 4:28 AM 020 4:40 (specimen) EDT AM EDT Resulting Agency Comment Spec In Lab Gretchen Yoon MD CHEMISTRY ORDERABLES Performing Organization Address City/State/Z[place] [address] (ABNORMAL) Hemogram (12/04/2019 4:28 AM EDT) Analysis Performed At Patho logist Time Signature WBC 7.8 4.0 - 9.5 [facility] x10(3)/[facility] LABORATORY RBC 4.10 (L) 4.58 - [facility] 5.54 [facility] x10(6)/[facility] LABORATORY Hemoglobin 12.0 (L) 13.7 - [facility] 16.5 gm/dL [facility] Hematocrit 36.5 (L) 40.5 - [facility] 48.5 % [facility] MCV 89.0 82.9 - [facility] 93.1 fL [facility] MCH 29.3 27.5 - [facility] MON[facility] 32.1 pg [facility] MCHC 32.9 32.0 - [facility] MON[facility] 35.7 gm/dL [facility] Platelets 151 145 - 357 [place] MARSH[facility]IV[facility] x10(3)/[facility] LABORATORY RDWSD 46.9 (H) 36.0 - [place] MON[facility] 45.0 [facility] LABORATORY RDWCV 14.4 (H) 11.4 - [facility] MON[facility] 13.8 % [facility] MPV 12.2 7.6 - 12.9 [facility] fL [facility] nRBC % Auto 0.0 % [facility] nRBC Abs Auto 0.000 0.000 - [place] MON[facility] 0.000 [facility] x10(3)/[facility] LABORATORY Specimen Anatomical Collection Method Collection Time Receive d Time (Source) Location / / Volume Laterality Blood specimen 12/04/2019 4:28 AM 020 4:40 (specimen) EDT AM EDT Resulting Agency Comment Spec In Lab Gretchen Yoon MD HEMATOLOGY ORDERABLES Performing Organization Address City/[facility]/ZIP Code Phon e Number [address] Potassium (12/03/2019 7:55 PM EDT) athologist Signature Potassium 3.9 3.5 - 5.0 [facility] mmol/L [facility] Comment: Please note: ??Patients with [...] Address City/State/ZIP Code Phon e Number [address] Potassium (12/03/2019 1:57 PM EDT) athologist Signature Potassium 3.7 3.5 - 5.0 [facility] mmol/L [facility] Comment: Please note: ??Patients with [...] Organization Address City/State/[place] [address] (ABNORMAL) Hemogram (12/03/2019 1:57 PM EDT) Analysis Performed At Patho logist Time Signature WBC 8.8 4.0 - 9.5 [facility] x10(3)/[facility] LABORATORY RBC 4.27 (L) 4.58 - [place] OL[place] 5.54 [facility] x10(6)/[facility] LABORATORY Hemoglobin 12.5 (L) 13.7 - [place] 16.5 gm/dL [facility] Hematocrit 37.5 (L) 40.5 - [facility] 48.5 % [facility] MCV 87.8 82.9 - [facility] 93.1 [facility] LABORATORY MCH 29.3 27.5 - [place] 32.1 pg [facility] MCHC 33.3 32.0 - [place] [place] 35.7 gm/dL [facility] Platelets 158 145 - 357 [employer] x10(3)/[facility] LABORATORY RDWSD 46.9 (H) 36.0 - [place] 45.0 [facility] LABORATORY RDWCV 14.5 (H) 11.4 - [place] [place] 13.8 % [facility] MPV 12.2 7.6 - 12.9 [facility] LABORATORY nRBC % Auto 0.0 % [facility] nRBC Abs Auto 0.000 0.000 - [place] 0.000 [facility] x10(3)/[facility] LABORATORY Specimen Anatomical Collection Method Collection Time Receive d Time (Source) Location / / Volume Laterality Blood specimen 12/03/2019 1:57 PM 020 2:21 (specimen) EDT PM EDT Resulting Agency Comment Spec In Lab Gretchen Yoon MD HEMATOLOGY ORDERABLES Performing Organization Address City/State/ZIP Code Phon e Number [address] Magnesium (12/03/2019 4:02 AM EDT) athologist Signature Magnesium 0.79 0.69 - 1.07 [facility] mmol/L [facility] Specimen Anatomical Collection Method Collection Time Receive d Time (Source) Location / / Volume Laterality Blood specimen 12/03/2019 4:02 AM 020 4:16 (specimen) EDT AM EDT Resulting Agency Comment Spec In Lab Gretchen Yoon MD CHEMISTRY ORDERABLES Performing Organization Address City/State/Z[place] [address] (ABNORMAL) BMP w/fasting Glucose (12/03/2019 4:02 AM EDT) P athologist Signature Glucose 100 (H) 65 - 99 [facility] Fasting mg/dL [facility] Comment: ?Fasting* Glucose Interpretive C [...] of Diabetes Mellitus, Position Statement from the [place] [employer]. ??Diabete s Care, Volume 33, Supplement 1, Jul 2009 BUN 17 10 - 20 mg/dL [facility] Creatinine 0.95 0.80 - 1.50 mg/dL [facility] Sodium 136 135 - 145 mmol/L [facility] Potassium 3.4 (L) 3.5 - 5.0 mmol/L [facility] Comment: Please note: ??Patients with WBC >100,00 0 may have falsely elevated Potassium levels. ??For accurate Potassium quantif ication in these patients send serum separator tube (gold top) for subsequent determinations. ??Contact the Clinical Chemistry Laboratory if there are any qu estions. Chloride 103 98 - 107 mmol/L [facility] CO2 18 (L) 22 - 31 mmol/L [facility] Anion Gap 15 5 - 15 mmol/L [facility] Calcium 8.3 (L) 8.5 - 10.5 mg/dL [facility] Estimated GFR 79 >=60 mL/min/1.73 m?? [facility] Comment: The eGFR was calculated using the CKD-EP I equation. As with all creatinine based estimates of kidney function, eGFR values calculated with the CKD-EPI equation are not accurate in patients wi th acute kidney failure, extremes of body mass or the acutely ill. http://[employer]/[facility]SAnkf eGFR 92 >=60 mL/min/1.73 m?? [facility] Comment: The eGFR was calculated using the CKD-EP I equation. As with all creatinine based estimates of kidney function, eGFR values calculated with the CKD-EPI equation are not accurate in patients wi th acute kidney failure, extremes of body mass or the acutely ill. http://[employer]/DHnkf Specimen Anatomical Collection Method Collection Time Receive d Time (Source) Location / / Volume Laterality Blood specimen 12/03/2019 4:02 AM 020 4:16 (specimen) EDT AM EDT Resulting Agency Comment Spec In Lab Gretchen Yoon MD CHEMISTRY ORDERABLES Performing Organization Address City/State/[place] [address] (ABNORMAL) Hemogram (12/03/2019 4:02 AM EDT) Analysis Performed At Patho logist Time Signature WBC 9.1 4.0 - 9.5 [facility] x10(3)/[facility] LABORATORY RBC 4.01 (L) 4.58 - [facility] 5.54 [facility] x10(6)/[facility] LABORATORY Hemoglobin 11.8 (L) 13.7 - [facility] 16.5 gm/dL [facility] Hematocrit 35.6 (L) 40.5 - [facility] 48.5 % [facility] MCV 88.8 82.9 - [facility] 93.1 [facility]ORATORY MCH 29.4 27.5 - [facility] 32.1 pg [facility] MCHC 33.1 32.0 - [facility] 35.7 gm/dL [facility] Platelets 130 (L) 145 - 357 [facility] x10(3)/[facility] LABORATORY RDWSD 46.6 (H) 36.0 - [facility] 45.0 [facility] LABORATORY RDWCV 14.4 (H) 11.4 - [facility] 13.8 % [facility] MPV 12.4 7.6 - 12.9 [facility] LABORATORY nRBC % Auto 0.0 % [facility] nRBC Abs Auto 0.000 0.000 - [facility] 0.000 [facility] x10(3)/[facility] LABORATORY Specimen Anatomical Collection Method Collection Time Receive d Time (Source) Location / / Volume Laterality Blood specimen 12/03/2019 4:02 AM 020 4:16 (specimen) EDT AM EDT Resulting Agency Comment Spec In Lab Gretchen Yoon MD HEMATOLOGY ORDERABLES Performing Organization Address City/State/[place] [address] XR Chest One View [...] Signature WBC 10.6 (H) 4.0 - 9.5 [facility] x10(3)/[facility] LABORATORY RBC 4.00 (L) 4.58 - [facility] 5.54 [facility] x10(6)/[facility] LABORATORY Hemoglobin 11.9 (L) 13.7 - [facility] 16.5 gm/dL [facility] Hematocrit 35.7 (L) 40.5 - [facility] 48.5 % [facility] MCV 89.3 82.9 - [facility] 93.1 [facility] LABORATORY MCH 29.8 27.5 - [facility] 32.1 pg [facility] MCHC 33.3 32.0 - [facility] 35.7 gm/dL [facility] Platelets 120 (L) 145 - 357 [facility] x10(3)/[facility] LABORATORY RDWSD 47.5 (H) 36.0 - [facility] 45.0 [facility] LABORATORY RDWCV 14.6 (H) 11.4 - [facility] 13.8 % [facility] MPV 12.0 7.6 - 12.9 [facility] LABORATORY nRBC % Auto 0.0 % [facility] nRBC Abs Auto 0.000 0.000 - [facility] 0.000 [facility] x10(3)/[facility] LABORATORY Specimen Anatomical Collection Method Collection Time Receive d Time (Source) Location / / Volume Laterality Blood specimen 12/02/2019 12:50 0 1:22 (specimen) PM EDT PM EDT Resulting Agency Comment Spec In Lab Gretchen Yoon MD HEMATOLOGY ORDERABLES Performing Organization Address City/State/[place] [address] Blue Tube HOLD (12/02/2019 4:55 AM EDT) P athologist Signature Blue Hold Sample in [facility] lab. [facility] Specimen Anatomical Collection Method Collection Time Receive d Time (Source) Location / / Volume Laterality Blood specimen Venous Draw / 12/02/2019 4:55 AM 2019 5:03 (specimen) Unknown EDT AM EDT Darrell Glasgow MD HEMATOLOGY ORDERABLES Performing Organization Address City/State/ZIP Code Phon e Number [address] Magnesium (12/02/2019 4:55 AM EDT) athologist Signature Magnesium 0.85 0.69 - 1.07 [facility] mmol/L [facility] Specimen Anatomical Collection Method Collection Time Receive d Time (Source) Location / / Volume Laterality Blood specimen 12/02/2019 4:55 AM 020 5:02 (specimen) EDT AM EDT Resulting Agency Comment Spec In Lab Gretchen Yoon MD CHEMISTRY ORDERABLES Performing Organization Address City/[facility]/ZIP [place] [address] (ABNORMAL) BMP w/fasting Glucose (12/02/2019 4:55 AM EDT) athologist Signature Glucose 114 (H) 65 - 99 [facility] Fasting mg/dL [facility] Comment: ?Fasting* Glucose Interpretive C [...] of Diabetes Mellitus, Position Statement from the [employer] [employer]. ??Diabete s Care, Volume 33, Supplement 1, Jul 2009 BUN 13 10 - 20 mg/dL [facility] Creatinine 0.93 0.80 - 1.50 mg/dL [facility] Sodium 135 135 - 145 mmol/L [facility] Potassium 3.7 3.5 - 5.0 mmol/L [facility] Comment: Please note: ??Patients with WBC >100,00 0 may have falsely elevated Potassium levels. ??For accurate Potassium quantif ication in these patients send serum separator tube (gold top) for subsequent determinations. ??Contact the Clinical Chemistry Laboratory if there are any qu estions. Chloride 105 98 - 107 mmol/L [facility] CO2 18 (L) 22 - 31 mmol/L [facility] Anion Gap 12 5 - 15 mmol/L [facility] Calcium 8.1 (L) 8.5 - 10.5 mg/dL [facility] Estimated GFR 81 >=60 mL/min/1.73 m?? [facility] Comment: The eGFR was calculated using the CKD-EP I equation. As with all creatinine based estimates of kidney function, eGFR values calculated with the CKD-EPI equation are not accurate in patients wi th acute kidney failure, extremes of body mass or the acutely ill. http://[employer]/[facility]SAnkf eGFR 94 >=60 mL/min/1.73 m?? [facility] Comment: The eGFR was calculated using the CKD-EP I equation. As with all creatinine based estimates of kidney function, eGFR values calculated with the CKD-EPI equation are not accurate in patients wi th acute kidney failure, extremes of body mass or the acutely ill. [email or web address] Specimen Anatomical Collection Method Collection Time Receive d Time (Source) Location / / Volume Laterality Blood specimen 12/02/2019 4:55 AM 020 5:02 (specimen) EDT AM EDT Resulting Agency Comment Spec In Lab Gretchen Yoon MD CHEMISTRY ORDERABLES Performing Organization Address City/State/[place] [address] (ABNORMAL) Hemogram (12/02/2019 4:55 AM EDT) Analysis Performed At Patho logist Time Signature WBC 9.3 4.0 - 9.5 [facility] x10(3)/[facility] LABORATORY RBC 3.71 (L) 4.58 - [place] OLIVIA 5.54 [facility] x10(6)/[facility] LABORATORY Hemoglobin 10.8 (L) 13.7 - [facility] 16.5 gm/dL [facility] LABORATORY Hematocrit 33.1 (L) 40.5 - [facility] 48.5 % [facility] LABORATORY MCV 89.2 82.9 - [facility] 93.1 [facility] LABORATORY MCH 29.1 27.5 - [facility] 32.1 pg [facility] LAB[facility]ATORY MCHC 32.6 32.0 - [facility] 35.7 gm/dL [facility] LAB[facility]ATORY Platelets 93 (L) 145 - 357 [facility] x10(3)/[facility] LABORATORY RDWSD 47.1 (H) 36.0 - [facility] 45.0 [facility] LABORATORY RDWCV 14.6 (H) 11.4 - [facility] 13.8 % [facility] LABORATORY MPV 11.7 7.6 - 12.9 [facility] LABORATORY nRBC % Auto 0.0 % [facility] LABORATORY nRBC Abs Auto 0.000 0.000 - [facility] 0.000 [facility] x10(3)/[facility] LABORATORY Specimen Anatomical Collection Method Collection Time Receive d Time (Source) Location / / Volume Laterality Blood specimen 12/02/2019 4:55 AM 020 5:02 (specimen) EDT AM EDT Resulting Agency Comment Spec In Lab Grethcen Yoon MD HEMATOLOGY ORDERABLES Performing Organization Address City/State/[place] [address] Transfuse 1 unit platelets, [...] For questions regarding this report, please contact [facility] number below. ? Electronically signed by: Angel Luis Barboza MD, [facility] ([phone]), at 12/01/2019 8:02 PM Narrative 12/01/2019 8:02 [...] For questions regarding this report, please contact [facility] number below. Electronically signed by: Angel Luis Barboza MD, [facility] ([phone]), at 12/01/2019 8:02 PM Gretchen Yoon MD IMG MRI ORDERABLES Prepare Platelets, Apheresis (12/01/2019 6:20 PM EDT) P athologist Signature Dispensed? Yes [facility] LABORATORY Specimen Anatomical Collection Method Collection Time Receive d Time (Source) Location / / Volume Laterality Blood specimen 12/01/2019 6:20 PM 020 6:18 (specimen) EDT PM EDT Gretchen Yoon MD BLOOD BANK ORDERABLES Performing Organization Address City/State/ZIP Code Phon e Number [place] [id number]OS[address] LAB[address]ORY Drive Duplex for DVT, Arm, Unilat (12/01/2019 5:08 PM EDT) Component Value Ref Test Analysis Performed At Patholo gist Range Method Time Signature VB Text Department: Vascular Surgery Lab VASCUBASE Report Patient: [id number] (ANGEL LUIS SALINAS) CPT: 44140 ICD10: R60.0 Referring Physician: GRETCHEN YOON ?? [...] For questions regarding this report, please contact [facility] number below. ? Electronically signed by: Merari Collins [facility] ([phone]), at 12/01/2019 3:53 PM Narrative 12/01/2019 3:53 PM EDT EXAMINATION: CT HEAD WO CONTRAST (GENERIC) CLINICAL HISTORY: Headache, intracranial hemorrhage suspected Serial CT scan: please assess for propag ation of known ICH noted on prior Head CT/imaging. TECHNIQUE: CT head performed without intravenous co ntrast administration. COMPARISON: Head CT 11/30/2019. CT angiogram of the [place] 11/01. FINDINGS: Ventricles are normal [...] Head CT 11/30/2019. CT angiogram of the [place] 11/01. FINDINGS: Ventricles are normal [...] Scan, Peripheral Blood (12/01/2019 12:51 PM EDT) [facility] Method Time Signature Plat Estimate Decreased [facility] LABORATORY RBC Morphology Normal [facility] LABORATORY Giant Less than 1 /HPF [facility] Platelets [facility] LABORATORY Specimen Anatomical Collection Method Collection Time Receive d Time (Source) Location / / Volume Laterality Blood specimen 12/01/2019 12:51 0 1:05 (specimen) PM EDT PM EDT Resulting Agency Comment Spec In Lab Riki Stevens MD HEMATOLOGY ORDERABLES Performing Organization Address City/State/Z[place] [address] (ABNORMAL) Differential, Automated (12/01/2019 12:51 PM EDT) [facility] Method Time Signature Neutrophils % 74.9 % [facility] LABORATORY Neutr Abs (ANC) 6.34 (H) 1.70 - [facility] 6.10 [facility] x10(3)/[facility] LABORATORY Lymphocytes % 11.4 % [facility] LABORATORY Lymphocytes Abs 1.0 0.9 - 3.2 [facility] x10(3)/[facility] LABORATORY Monocytes % 12.4 % [facility] LABORATORY Monocyte Abs 1.0 (H) 0.3 - 0.9 [facility] x10(3)/[facility] LABORATORY Eosinophils % 0.4 % [facility] LABORATORY Eosinophils Abs 0.0 0.0 - 0.4 [facility] x10(3)/[facility] LABORATORY Basophils % 0.4 % [facility] LABORATORY Basophils Abs 0.0 0.0 - 0.1 [facility] x10(3)/[facility] LABORATORY Immature Gran % 0.50 % MELINA [...] Pita Gran Abs 0.04 0.00 - 0.04 x10(3)/[facility] LABORATORY Specimen Anatomical Collection Method Collection Time Receive d Time (Source) Location / / Volume Laterality Blood specimen 12/01/2019 12:51 0 1:05 (specimen) PM EDT PM EDT Resulting Agency Comment Spec In Lab Riki Stevens MD HEMATOLOGY ORDERABLES Performing Organization Address City/State/[place] [address] (ABNORMAL) Hemogram (12/01/2019 12:51 PM EDT) Analysis Performed At Patho logist Time Signature WBC 8.4 4.0 - 9.5 [facility] x10(3)/[facility] LABORATORY RBC 3.69 (L) 4.58 - [facility] 5.54 [facility] x10(6)/[facility] LABORATORY Hemoglobin 10.8 (L) 13.7 - [facility] 16.5 gm/dL [facility] LABORATORY Hematocrit 32.4 (L) 40.5 - [facility] 48.5 % [facility] LABORATORY MCV 87.8 82.9 - [facility] 93.1 [facility] LABORATORY MCH 29.3 27.5 - [facility] OLIVIA 32.1 pg [facility] LABORATORY MCHC 33.3 32.0 - [facility] 35.7 gm/dL [facility] LABORATORY Platelets 72 (L) 145 - 357 [facility] x10(3)/[facility] LABORATORY RDWSD 47.2 (H) 36.0 - [facility] 45.0 [facility] LABORATORY RDWCV 14.6 (H) 11.4 - [facility] 13.8 % [facility] LABORATORY MPV 12.2 7.6 - 12.9 [facility] LABORATORY nRBC % Auto 0.0 % [facility] LABORATORY nRBC Abs Auto 0.000 0.000 - [facility] 0.000 [facility] x10(3)/[facility] LABORATORY Specimen Anatomical Collection Method Collection Time Receive d Time (Source) Location / / Volume Laterality Blood specimen 12/01/2019 12:51 0 1:05 (specimen) PM EDT PM EDT Resulting Agency Comment Spec In Lab Riki Stevens MD HEMATOLOGY ORDERABLES Performing Organization Address City/[facility]/ZIP Code Phon e Number [address] (ABNORMAL) Coox2 (12/01/2019 11:42 AM EDT) Analysis Performed At Patho logist Time Signature pO2 Coox 30 mmHg [facility] LABORATORY Hgb Blood Gas 11.6 (L) 13.7 - [facility] 16.5 gm/dL [facility] LABORATORY O2HB Coox 60.8 % [facility] LABORATORY COHB Coox 0.6 % [facility] LABORATORY Comment: Nonsmokers: 0.5-1.5% COHB Smokers: Variable, but usually less than 10% Toxic: 20-30% COHB Lethal: Greater than 60% COHB METHB Coox 0.6 <=1.5 % [facility] LABORATORY Source Coox Mixed Venous [facility] LABORATORY Specimen Anatomical Collection Method Collection Time Receive d Time (Source) Location / / Volume Laterality Blood specimen 12/01/2019 11:42 0 (specimen) AM EDT 11:42 AM EDT Gretchen Yoon MD CHEMISTRY ORDERABLES Performing Organization Address City/State/[place] [address] Sedimentation rate (12/01/2019 3:55 AM EDT) P athologist Signature Sed Rate 25 3 - 46 [facility] mm/hr [facility] LABORATORY Comment: Effective June 11, 2019 [...] Organization Address City/[facility]/[place] [address] (ABNORMAL) CRP, acute inflammation (12/01/2019 3:55 AM EDT) P athologist Signature CRP 92.5 (H) <=4.9 mg/L [facility] LABORATORY Specimen Anatomical Collection Method Collection Time Receive d Time (Source) Location / / Volume Laterality Blood specimen Venous Draw / 12/01/2019 3:55 AM 2019 4:06 (specimen) Unknown EDT AM EDT Resulting Agency Comment Spec In Lab Rossy Winn MD CHEMISTRY ORDERABLES Performing Organization Address City/[facility]/[place]IP [place] [address] ABORH Recheck Status (12/01/2019 3:55 AM EDT) [facility] Method Time Signature ABORH Recheck Order Placed [facility] LABORATORY ABORH Type Complete [facility] LABORATORY Specimen Anatomical Collection Method Collection Time Receive d Time (Source) Location / / Volume Laterality Blood specimen 12/01/2019 3:55 AM 020 4:15 (specimen) EDT AM EDT Resulting Agency Comment Spec In Lab Lewis Gee MD BLOOD BANK ORDERABLES Performing Organization Address City/[facility]/[place] [address] Antibody screen (12/01/2019 3:55 AM EDT) [facility] Method Time Signature Ab Screen Negative [facility] LABORATORY Expires at 12/04/2019 [facility] [id number] on: [facility] LABORATORY Specimen Anatomical Collection Method Collection Time Receive d Time (Source) Location / / Volume Laterality Blood specimen 12/01/2019 3:55 AM 020 4:15 (specimen) EDT AM EDT Resulting Agency Comment Spec In Lab Lewis Gee MD BLOOD BANK ORDERABLES Performing Organization Address City/State/[place] [address] ABO/Rh Typing (12/01/2019 3:55 AM EDT) athologist Signature ABORh Type AB Pos [facility] LABORATORY Specimen Anatomical Collection Method Collection Time Receive d Time (Source) Location / / Volume Laterality Blood specimen 12/01/2019 3:55 AM 020 4:15 (specimen) EDT AM EDT Resulting Agency Comment Spec In Lab Lewis Gee MD BLOOD BANK ORDERABLES Performing Organization Address City/[facility]/[place] [address] (ABNORMAL) Troponin (12/01/2019 3:55 AM EDT) athologist Signature Troponin-T 4.35 (H) 0.00 - [facility] 0.00 ng/mL [facility] LABORATORY Comment: result rechecked-slw The 99th percentile for Troponin T is le ss than 0.01 ng/mL, any detectable cTnT concentration using this assay should be considered elevated. According to the third universal definit ion of myocardial infarction the following criteria with a clinical prese ntation consistent with acute myocardial ischemia meets the diagnosis for a myocardial infarction (VT). Detection of a rise and/or fall of [...] additional sample may be indicated. Reference: Third [place] Definition of Myocardial Infarction. Journal of the [employer] 2012;60:1581-98 Specimen Anatomical Collection Method Collection Time Receive d Time (Source) Location / / Volume Laterality Blood specimen 12/01/2019 3:55 AM 020 4:00 (specimen) EDT AM EDT Resulting Agency Comment Spec In Lab Gretchen Yoon MD CHEMISTRY ORDERABLES Performing Organization Address City/[facility]/ZIP Code Phon e Number [address] Magnesium (12/01/2019 3:55 AM EDT) P athologist Signature Magnesium 0.96 0.69 - 1.07 [facility] mmol/L [facility] LABORATORY Specimen Anatomical Collection Method Collection Time Receive d Time (Source) Location / / Volume Laterality Blood specimen 12/01/2019 3:55 AM 020 4:00 (specimen) EDT AM EDT Resulting Agency Comment Spec In Lab Gretchen Yoon MD CHEMISTRY ORDERABLES Performing Organization Address City/State/Z[place] [address] (ABNORMAL) BMP w/fasting Glucose (12/01/2019 3:55 AM EDT) P athologist Signature Glucose 148 (H) 65 - 99 [facility] Fasting mg/dL [facility] LABORATORY Comment: ?Fasting* Glucose Interpretive C [...] of Diabetes Mellitus, Position Statement from the [place] [employer]. ??Diabete s Care, Volume 33, Supplement 1, Jul 2009 BUN 11 10 - 20 mg/dL [facility] LABORATORY Creatinine 0.96 0.80 - 1.50 mg/dL [facility] LABORATORY Sodium 132 (L) 135 - 145 mmol/L [facility] LABORATORY Potassium 4.0 3.5 - 5.0 mmol/L [facility] LABORATORY Comment: Please note: ??Patients with WBC >100,00 0 may have falsely elevated Potassium levels. ??For accurate Potassium quantif ication in these patients send serum separator tube (gold top) for subsequent determinations. ??Contact the Clinical Chemistry Laboratory if there are any qu estions. Chloride 105 98 - 107 mmol/L [facility] LABORATORY CO2 17 (L) 22 - 31 mmol/L [facility] LABORATORY Anion Gap 10 5 - 15 mmol/L [facility] LABORATORY Calcium 7.6 (L) 8.5 - 10.5 mg/dL [facility] LABORATORY Estimated GFR 78 >=60 mL/min/1.73 m?? [facility] LABORATORY Comment: The eGFR was calculated using the CKD-EP I equation. As with all creatinine based estimates of kidney function, eGFR values calculated with the CKD-EPI equation are not accurate in patients wi th acute kidney failure, extremes of body mass or the acutely ill. [email or web address]/[email or web address] eGFR 91 >=60 mL/min/1.73 m?? [facility] LABORATORY Comment: The eGFR was calculated using the CKD-EP I equation. As with all creatinine based estimates of kidney function, eGFR values calculated with the CKD-EPI equation are not accurate in patients wi th acute kidney failure, extremes of body mass or the acutely ill. [email or web address] Specimen Anatomical Collection Method Collection Time Receive d Time (Source) Location / / Volume Laterality Blood specimen 12/01/2019 3:55 AM 020 4:00 (specimen) EDT AM EDT Resulting Agency Comment Spec In Lab Gretchen Yoon MD CHEMISTRY ORDERABLES Performing Organization Address City/State/ZIP Code Phon e Number [facility] [place] [address] (ABNORMAL) Hemogram (12/01/2019 3:55 AM EDT) Analysis [facility]formed [facility] Time Signature WBC 11.0 (H) 4.0 - 9.5 [facility] x10(3)/[facility] LABORATORY RBC 3.46 (L) 4.58 - [facility] 5.54 [facility] x10(6)/[facility] LABORATORY Hemoglobin 10.2 (L) 13.7 - [facility] 16.5 gm/dL [facility] LABORATORY Hematocrit 31.2 (L) 40.5 - [facility] 48.5 % [facility] LABORATORY MCV 90.2 82.9 - [facility] 93.1 [facility] LABORATORY MCH 29.5 27.5 - [facility] 32.1 pg [facility] LABORATORY MCHC 32.7 32.0 - [facility] 35.7 gm/dL [facility] LABORATORY Platelets 98 (L) 145 - 357 [facility] x10(3)/[facility] LABORATORY RDWSD 47.9 (H) 36.0 - [facility] 45.0 [facility] LABORATORY RDWCV 14.6 (H) 11.4 - [facility] 13.8 % [facility] LABORATORY MPV 12.3 7.6 - 12.9 [facility] LABORATORY nRBC % Auto 0.0 % [facility] LABORATORY nRBC Abs Auto 0.000 0.000 - [facility] 0.000 [facility] x10(3)/[facility] LABORATORY Specimen Anatomical Collection Method Collection Time Receive d Time (Source) Location / / Volume Laterality Blood specimen 12/01/2019 3:55 AM 020 4:00 (specimen) EDT AM EDT Resulting Agency Comment Spec In Lab Gretchen Yoon MD HEMATOLOGY ORDERABLES Performing Organization Address City/State/[place] [address] (ABNORMAL) BLOOD GAS 2 ARTERIAL (11/30/2019 10:39 PM EDT) Analysis Performed At [facility] Time Signature pH Art 7.45 7.35 - [facility] 7.45 [facility] LABORATORY pCO2 Art 23 (L) 35 - 45 [facility] LABORATORY pO2 Art 76 (L) 85 - 104 [facility] LABORATORY HCO3 Art 15.3 (L) 20.0 - [facility] 26.0 [facility] mmol/L [facility] LABORATORY BE Art -8.7 (L) -3.0 - 3.0 [facility] mmol/L [facility] LABORATORY Hgb Blood Gas 11.7 (L) 13.7 - [facility] 16.5 gm/dL [facility] O2HB Art 94.2 94.0 - [facility] 97.0 % [facility] LABORATORY COHB Art 0.5 % [facility] LABORATORY Comment: Nonsmokers: 0.5-1.5% COHB [...] Blood 1.10 (L) 1.15 - 1.33 mmol/L [facility] LABORATORY Comment: Note: ??Total bilirubin [...] MEDICAL CENTER LABORATORY FIO2 Art 100 % [facility] LABORATORY PF Ratio Art 76 [facility] LABORATORY Specimen Anatomical Collection Method Collection Time Receive d Time (Source) Location / / Volume Laterality Blood specimen 11/30/2019 10:39 0 (specimen) PM EDT 10:39 PM EDT Gretchen Yono MD CHEMISTRY ORDERABLES Performing Organization Address City/[facility]/[place] [address] EKG 12 Lead (11/30/2019 [...] (Bezet) Calculated P 12 degrees [facility] [place] Calculated R 19 degrees [facility] [place] Calculated T -47 degrees [facility] [place] INTERPRETATION Sinus rhythm with Premature supraventricular complexes [...] Organization Address City/[facility]/ZIP Code Phon e Number MUSE SYSTEM (ABNORMAL) Urinalysis Microscopic Exam (11/30/2019 8:40 PM EDT) P athologist Signature RBC UA 27 (H) 0 - 3 /HPF [facility] LABORATORY WBC UA 4 (H) 0 - 3 /HPF [facility] LABORATORY Hyaline Cast 3 (H) 0 - 2 /LPF [facility] LABORATORY Specimen (Source) Anatomical Collection Method Collection Time Re ceived Time Location / / Volume Laterality Urine specimen 11/30/2019 8:40 11/30/2019 obtained via PM EDT 10:51 PM EDT indwelling urinary catheter (specimen) Resulting Agency Comment Spec In Lab Rossy Winn MD URINE ORDERABLES Performing Organization Address City/[facility]/Z[place] [address] (ABNORMAL) Urinalysis with reflex Culture (11/30/2019 8:40 PM EDT) Patholo gist Method Time Signature Glucose UA Negative Negative [facility] mg/dL [facility] Protein UA Negative Negative [facility] mg/dL [facility] Bilirubin UA Negative Negative [facility] mg/dL [facility] Comment: Clinical correlation required for [...] LABORATORY Ketones UA 40 (A) Negative mg/dL [facility] LABORATORY Nitrite UA Negative Negative [facility] LABORATORY Leukocytes UA Trace (A) Negative [facility] LABORATORY Appearance UA Clear Clear [facility] LABORATORY Spec Clarita UA 1.026 1.006 - 1.030 [facility] LABORATORY Color UA Yellow Yellow [facility] LABORATORY Culture Reflexed No [facility] LABORATORY Specimen (Source) Anatomical Collection Method Collection Time Re ceived Time Location / / Volume Laterality Urine specimen 11/30/2019 8:40 11/30/2019 obtained via PM EDT 10:51 PM EDT indwelling urinary catheter (specimen) Resulting Agency Comment Spec In Lab Gretchen Yoon MD URINE ORDERABLES Performing Organization Address City/State/[place] [address] (ABNORMAL) pro-Brain Natriuretic Peptide (11/30/2019 8:30 PM EDT) P athologist Signature ProBNP 2,802 (H) <=125 [facility] pg/mL [facility]OR[facility] Specimen Anatomical Collection Method Collection Time Receive d Time (Source) Location / / Volume Laterality Blood specimen Venous Draw / 11/30/2019 8:30 PM 2019 8:36 (specimen) Unknown EDT PM EDT Resulting Agency Comment Spec In Lab Rossy Winn MD CHEMISTRY ORDERABLES Performing Organization Address City/[facility]/ZIP [place] [address] (ABNORMAL) Troponin (11/30/2019 8:30 PM EDT) athologist Signature Troponin-T 5.04 (H) 0.00 - [place] MONAE 0.00 ng/mL [facility]OR[facility] Comment: The 99th percentile for Troponin T is le ss than 0.01 ng/mL, any detectable cTnT concentration using this assay should be considered elevated. According to the third universal definit ion of myocardial infarction the following criteria with a clinical prese ntation consistent with acute myocardial ischemia meets the diagnosis for a myocardial infarction (VT). Detection of a rise and/or fall of [...] additional sample may be indicated. Reference: Third [place] Definition of Myocardial Infarction. Journal of the [place] [employer] 2012;60:1581-98 Specimen Anatomical Collection Method Collection Time Receive d Time (Source) Location / / Volume Laterality Blood specimen Venous Draw / 11/30/2019 8:30 PM 2019 8:36 (specimen) Unknown EDT PM EDT Resulting Agency Comment Spec In Lab Rossy Winn MD CHEMISTRY ORDERABLES Performing Organization Address City/[facility]/ZIP [place] [address] Magnesium (11/30/2019 8:30 PM EDT) athologist Signature Magnesium 0.79 0.69 - 1.07 [place]IV[place] mmol/L [facility] LABORATORY Specimen Anatomical Collection Method Collection Time Receive d Time (Source) Location / / Volume Laterality Blood specimen 11/30/2019 8:30 PM 020 8:35 (specimen) EDT PM EDT Resulting Agency Comment Spec In Lab Gretchen Yoon MD CHEMISTRY ORDERABLES Performing Organization Address City/State/[place] [address] (ABNORMAL) Basic Metabolic Panel (non-fasting) (11/30/2019 8:30 PM EDT) athologist Signature Glucose Lvl 132 65 - 199 [facility] mg/dL [facility] Comment: Diabetes: >=200 mg/dL plus symp toms BUN 12 10 - 20 mg/dL [facility] LABORATORY Creatinine 0.94 0.80 - 1.50 mg/dL [facility] LABORATORY Sodium 136 135 - 145 mmol/L [facility] Potassium 3.9 3.5 - 5.0 mmol/L [facility] Comment: Please note: ??Patients with WBC >100,00 0 may have falsely elevated Potassium levels. ??For accurate Potassium quantif ication in these patients send serum separator tube (gold top) for subsequent determinations. ??Contact the Clinical Chemistry Laboratory if there are any qu estions. Chloride 108 (H) 98 - 107 mmol/L [facility]OR[facility]ORY CO2 17 (L) 22 - 31 mmol/L [facility] Anion Gap 11 5 - 15 mmol/L [facility] LABORATORY Calcium 7.9 (L) 8.5 - 10.5 mg/dL [facility] Estimated GFR 80 >=60 mL/min/1.73 m?? [facility] Comment: The eGFR was calculated using the CKD-EP I equation. As with all creatinine based estimates of kidney function, eGFR values calculated with the CKD-EPI equation are not accurate in patients wi th acute kidney failure, extremes of body mass or the acutely ill. http://[employer]/DHnkf eGFR 93 >=60 mL/min/1.73 m?? [facility] Comment: The eGFR was calculated using the CKD-EP I equation. As with all creatinine based estimates of kidney function, eGFR values calculated with the CKD-EPI equation are not accurate in patients wi th acute kidney failure, extremes of body mass or the acutely ill. http://[employer]/DHMCnkf Specimen Anatomical Collection Method Collection Time Receive d Time (Source) Location / / Volume Laterality Blood specimen 11/30/2019 8:30 PM 020 8:35 (specimen) EDT PM EDT Resulting Agency Comment Spec In Lab Gretchen Yoon MD CHEMISTRY ORDERABLES Performing Organization Address City/[facility] [place] [address] Blood culture (11/30/2019 8:30 PM EDT) Patholo gist Method Time Signature Blood Culture No growth MELINA WHITTENCOCK at 5 days. [facility] Specimen Anatomical Collection Method Collection Time Receive d Time (Source) Location / / Volume Laterality Blood specimen 11/30/2019 8:30 PM 020 9:40 (specimen) EDT PM EDT Comment: L HAND Resulting Agency Comment Spec In Lab Gretchen Yoon MD MICROBIOLOGY - BLOOD ORDERAB LES Performing Organization Address City/[facility]/[place]IP [place] [address] Blood culture (11/30/2019 8:30 PM EDT) Patholo gist Method Time Signature Blood Culture No growth MELINA WHITTENCOCK at 5 days. [facility] Specimen Anatomical Collection Method Collection Time Receive d Time (Source) Location / / Volume Laterality Blood specimen 11/30/2019 8:30 PM 020 9:40 (specimen) EDT PM EDT Comment: R HAND Resulting Agency Comment Spec In Lab Gretchen Yoon MD MICROBIOLOGY - BLOOD ORDERAB LES Performing Organization Address [facility] [place] [address] XR Chest One View [...] Time Signature pH Art 7.45 7.35 - [facility] 7.45 [facility] pCO2 Art 27 (L) 35 - 45 [facility] mmHg [facility] pO2 Art 68 (L) 85 - 104 [facility] LABORATORY HCO3 Art 18.2 (L) 20.0 - [facility] 26.0 [facility] mmol/[facility] LABORATORY BE Art -5.9 (L) -3.0 - 3.0 [facility] mmol/L [facility] Hgb Blood Gas 12.4 (L) 13.7 - [facility] 16.5 gm/dL [facility] O2HB Art 93.1 (L) 94.0 - [facility] 97.0 % [facility] COHB Art 0.8 % [facility] Comment: Nonsmokers: 0.5-1.5% COHB [...] Blood 1.13 (L) 1.15 - 1.33 mmol/L [facility] Comment: Note: ??Total bilirubin [...] [facility] LABORATORY Flow Art 5.0 LPM [facility] LABOR[facility] Specimen Anatomical Collection Method Collection Time Receive d Time (Source) Location / / Volume Laterality Blood specimen 11/30/2019 8:09 PM 020 8:09 (specimen) EDT PM EDT Gretchen Yoon MD CHEMISTRY ORDERABLES Performing Organization Address City/State/[place] [address] Angiogram [place] [facility] [place] (11/30/2019 4:36 PM EDT) Anatomical [...] CT HEAD WO CONTRAST (GENERIC), CT ANGIOGRAM [place] CLINICAL HISTORY: Headache, intracranial hemorrhage suspected F/U on known ICH - assessing for propaga tion TECHNIQUE: CT head performed without intravenous co ntrast administration. CT angiogram [place] of [place] 65 cc Omnipaque 350 administered [...] HEAD WO CONTRAST (GENERI C), CT ANGIOGRAM [place] CLINICAL HISTORY: Headache, intracranial hemorrhage suspected F/U on known ICH - assessing for propaga tion TECHNIQUE: CT head performed without intravenous co ntrast administration. CT angiogram [place] 65 cc Omnipaque 350 administered [...] CT HEAD WO CONTRAST (GENERIC), CT ANGIOGRAM [place] CLINICAL HISTORY: Headache, intracranial hemorrhage suspected F/U on known ICH - assessing for propaga tion TECHNIQUE: CT head performed without intravenous co ntrast administration. CT angiogram [place] 65 cc Omnipaque 350 administered [...] HEAD WO CONTRAST (GENERI C), CT ANGIOGRAM [place] CLINICAL HISTORY: Headache, intracranial hemorrhage suspected F/U on known ICH - assessing for propaga tion TECHNIQUE: CT head performed without intravenous co ntrast administration. CT angiogram [place] 65 cc Omnipaque 350 administered [...] Electronically signed by: Angel Luis Barboza MD, [facility] ([phone]), at 11/30/2019 5:04 PM Gretchen Yoon MD [...] 453 ms MUSE SYSTEM (Bezet) Calculated P [place] 52 degrees MUSE SYSTEM Calculated R [place] 5 degrees MUSE SYSTEM Calculated T [place] -60 degrees MUSE SYSTEM INTERPRETATION Sinus rhythm [...] Nilo ? (Age): 1945(74y) Med Rec#: ? [id number] ?Sex: ?M ? Site Loc: ? [facility] ?Ht / Wt: ??178(cm)/64(kg) Pt. Loc: ?CCU ? BSA: ?1.8 Study Date: ?? 11/30/2019 ?Pt. Type: Inpatient Tape: ? Referring: GILMER Reading: Tello Mejia ([id number]) Boat Deckhand: Friend, Lolita Diagnosis: *ST elevation (STEMI) myocardial [...] n present. Tricuspid Valve: ? The tricuspid renetat ve leaflets are morphologically normal. ?There is [...] Vmax ?0.58 ? m/sec ? MV deceleration zfem671.05 ? m sec ? MV A-wave Vmax [...] ? Mid-Inferior ?Akinetic ? Mid-Inferoseptal ?Normal ? [place]-Septal ? Normal ? [place]-Anterior ? Normal ? [place]-Lateral ?Normal ? [place]-Inferior ? Hypokinetic ? [place]-Tip ?Normal ? This report has been electronically sign ed by: _ Tello Mejia MD ? 11/30/2019 12: 45:27 Images reviewed and interpretation [facility] Cardiac Ultrasound Laboratory Procedure Note Tello Mejia MD - 11/30/2019Formatti ng of this note might be different from the original. Procedure: Transthoracic Echocardiogram Patient: RITA ACOSTA(Age): [birth year](74y) Med Rec#: [id number] Sex: M Site Loc: [facility] Ht / Wt: 178(cm)/64(kg) Pt. Loc: [facility] BSA: 1.8 Study Date: 11/30/2019 Pt. Type: Inpatie nt Tape: Referring: VANGIEJ Reading: Tello Mejia ([id number]) Boat Deckhand: Eve Lolita Diagnosis: *ST elevation (STEMI) myocardial [...] MV E-wave Vmax 0.58 m/sec MV deceleration [id number] msec MV A-wave Vmax 0.74 m/sec MV [...] Hypokinetic Mid-Posterolateral Hypokinetic Mid-Inferior Akinetic Mid-Inferoseptal Normal [place]-Septal Normal [place]-Anterior Normal [place]-Lateral Normal [place]-Inferior Hypokinetic [place]-Tip Normal This report has been electronically sign ed by: _ Tello Mejia MD 11/30/2019 12:45:27 Images reviewed and interpretation verif d [facility] Cardiac Ultrasound Laboratory Gretchen Yoon MD [...] Electronically signed by: Angel Luis Barboza MD, [facility] ([phone]), at 11/30/2019 12:04 PM Narrative 11/30/2019 12:04 [...] Magnesium (11/30/2019 8:30 AM EDT) athologist [facility] Magnesium 0.88 0.69 - 1.07 [facility] mmol/L [facility] Specimen Anatomical Collection Method Collection Time Receive d Time (Source) Location / / Volume Laterality Blood specimen Venous Draw / 11/30/2019 8:30 AM 2019 8:37 (specimen) Unknown EDT AM EDT Resulting Agency Comment Spec In Lab Rossy Winn MD CHEMISTRY ORDERABLES Performing Organization Address City/State/Z[place] [address] (ABNORMAL) CK (11/30/2019 8:30 AM EDT) athologist [facility] CK, Total 1,645 (H) 0 - 200 [facility] unit/L [facility] Specimen Anatomical Collection Method Collection Time Receive d Time (Source) Location / / Volume Laterality Blood specimen 11/30/2019 8:30 AM 020 8:32 (specimen) EDT AM EDT Resulting Agency Comment Spec In Lab Gretchen Yoon MD CHEMISTRY ORDERABLES Performing Organization Address City/[facility]/ZIP [facility] [place] [address] (ABNORMAL) Troponin (11/30/2019 8:30 AM EDT) athologist [facility] Troponin-T 8.04 (H) 0.00 - MELINA OLIVIA 0.00 ng/mL [facility] Comment: result rechecked-rancho The 99th percentile for Troponin T is le ss than 0.01 ng/mL, any detectable cTnT concentration using this assay should be considered elevated. According to the third universal definit ion of myocardial infarction the following criteria with a clinical prese ntation consistent with acute myocardial ischemia meets the diagnosis for a myocardial infarction (VT). Detection of a rise and/or fall of [...] additional sample may be indicated. Reference: Third [place] Definition of Myocardial Infarction. Journal of the [place] [employer] 2012;60:1581-98 Specimen Anatomical Collection Method Collection Time Receive d Time (Source) Location / / Volume Laterality Blood specimen 11/30/2019 8:30 AM 020 8:32 (specimen) EDT AM EDT Resulting Agency Comment Spec In Lab Gretchen Yoon MD CHEMISTRY ORDERABLES Performing Organization Address City/State/[place] [address] EKG 12 Lead (11/30/2019 7:57 AM EDT) Component Value Ref Range Test Analysis Performed Pathologis t Method Time At Signature Ventricular rate 64 BPM MUSE SYSTEM Atrial Rate 64 BPM MUSE SYSTEM P-R Interval 132 ms MUSE SYSTEM QRS Duration 78 ms MUSE SYSTEM Q-T Interval 420 ms MUSE SYSTEM QTC Calculated 433 ms MUSE SYSTEM (Bezet) Calculated P [place] 28 degrees MUSE SYSTEM Calculated R [place] 7 degrees MUSE SYSTEM Calculated T [place] -33 degrees MUSE SYSTEM INTERPRETATION Sinus rhythm [...] Signature Glucose 147 (H) 65 - 99 [facility] Fasting mg/dL [facility] Comment: ?Fasting* Glucose Interpretive C [...] of Diabetes Mellitus, Position Statement from the [place] [employer]. ??Diabete s Care, Volume 33, Supplement 1, Jul 2009 BUN 13 10 - 20 mg/dL [facility] Creatinine 0.90 0.80 - 1.50 mg/dL [facility]OR[facility] Sodium 135 135 - 145 mmol/L [facility] Potassium 3.9 3.5 - 5.0 mmol/L [facility] Comment: Please note: ??Patients with WBC >100,00 0 may have falsely elevated Potassium levels. ??For accurate Potassium quantif ication in these patients send serum separator tube (gold top) for subsequent determinations. ??Contact the Clinical Chemistry Laboratory if there are any qu estions. Chloride 108 (H) 98 - 107 mmol/L [facility] CO2 16 (L) 22 - 31 mmol/L [facility] Anion Gap 11 5 - 15 mmol/L [facility] Calcium 7.5 (L) 8.5 - 10.5 mg/dL [facility] Estimated GFR 84 >=60 mL/min/1.73 m?? [facility] Comment: The eGFR was calculated using the CKD-EP I equation. As with all creatinine based estimates of kidney function, eGFR values calculated with the CKD-EPI equation are not accurate in patients wi th acute kidney failure, extremes of body mass or the acutely ill. http://[employer]/[facility]k eGFR 98 >=60 mL/min/1.73 m?? [facility] Comment: The eGFR was calculated using the CKD-EP I equation. As with all creatinine based estimates of kidney function, eGFR values calculated with the CKD-EPI equation are not accurate in patients wi th acute kidney failure, extremes of body mass or the acutely ill. http://[employer]/[facility]SAnkf Specimen Anatomical Collection Method Collection Time Receive d Time (Source) Location / / Volume Laterality Blood specimen 11/30/2019 2:15 AM 020 2:29 (specimen) EDT AM EDT Resulting Agency Comment Spec In Lab Gretchen Yoon MD CHEMISTRY ORDERABLES Performing Organization Address City/State/ZIP Code Phon e Number [place] [id number]OS[address] LAB[address]ORY Drive (ABNORMAL) Hemogram (11/30/2019 2:15 AM EDT) Analysis Performed At Patho logist Time Signature WBC 11.2 (H) 4.0 - 9.5 [facility] x10(3)/[facility] LABORATORY RBC 3.83 (L) 4.58 - [facility] 5.54 [facility] x10(6)/[facility] LABORATORY Hemoglobin 11.4 (L) 13.7 - [facility] 16.5 gm/dL [facility] Hematocrit 35.2 (L) 40.5 - [facility] 48.5 % [facility] MCV 91.9 82.9 - [facility] 93.1 fL [facility] MCH 29.8 27.5 - [facility] 32.1 [facility] LABORATORY MCHC 32.4 32.0 - MELINA WHITTENCOCK 35.7 gm/dL [facility] Platelets 122 (L) 145 - 357 MELINA MARSHOLIVIA x10(3)/[facility] LABORATORY RDWSD 49.8 (H) 36.0 - MELINA WHITTENCOCK 45.0 [facility] LABORATORY RDWCV 14.8 (H) 11.4 - MELINA OLIVIA 13.8 % [facility] MPV 12.1 7.6 - 12.9 MELNIA MONAE [facility] LABORATORY nRBC % Auto 0.0 % [facility] nRBC Abs Auto 0.000 0.000 - MELINA MARSHOLIVIA 0.000 [facility] x10(3)/[facility] LABORATORY Specimen Anatomical Collection Method Collection Time Receive d Time (Source) Location / / Volume Laterality Blood specimen 11/30/2019 2:15 AM 020 2:29 (specimen) EDT AM EDT Resulting Agency Comment Spec In Lab Gretchen Yoon MD HEMATOLOGY ORDERABLES Performing Organization Address City/[facility]/ZIP Code Phon e Number [address] (ABNORMAL) CK (11/30/2019 2:15 AM EDT) [facility], Total 1,969 (H) 0 - 200 [facility] unit/L [facility] Specimen Anatomical Collection Method Collection Time Receive d Time (Source) Location / / Volume Laterality Blood specimen 11/30/2019 2:15 AM 020 2:29 (specimen) EDT AM EDT Resulting Agency Comment Spec In Lab Gretchen Yoon MD CHEMISTRY ORDERABLES Performing Organization Address City/State/ZIP [place] [address] (ABNORMAL) Troponin (11/30/2019 2:15 AM EDT) [facility] Trop[facility]-T 11.73 (H) 0.00 - MELINA WHITTENCOCK 0.00 ng/mL [facility] Comment: result rechecked-slw The 99th percentile for Troponin T is le ss than 0.01 ng/mL, any detectable cTnT concentration using this assay should be considered elevated. According to the third universal definit ion of myocardial infarction the following criteria with a clinical prese ntation consistent with acute myocardial ischemia meets the diagnosis for a myocardial infarction (VT). Detection of a rise and/or fall of [...] additional sample may be indicated. Reference: Third [place] Definition of Myocardial Infarction. Journal of the [place] [employer] 2012;60:1581-98 result rechecked- The 99th percentile for Troponin T is le ss than 0.01 ng/mL, any detectable cTnT concentration using this assay should be considered elevated. According to the third universal definit ion of myocardial infarction the following criteria with a clinical prese ntation consistent with acute myocardial ischemia meets the diagnosis for a myocardial infarction (VT). Detection of a rise and/or fall of [...] additional sample may be indicated. Reference: Third [place] Definition of Myocardial Infarction. Journal of the [place] [employer] 2012;60:1581-98 Corrected from 11.73 ng/ml [HI] on 11/29 3:11:51 EDT by Debi Hawley Specimen Anatomical Collection Method Collection Time Receive d Time (Source) Location / / Volume Laterality Blood specimen 11/30/2019 2:15 AM 020 2:29 (specimen) EDT AM EDT Resulting Agency Comment Spec In Lab Gretchen Yoon MD CHEMISTRY ORDERABLES Performing Organization Address City/[facility]/ZIP Code Phon e Number [address] LDL Cholesterol, Direct (11/30/2019 2:15 AM EDT) P athologist Signature LDL Chol 156 mg/dL [facility] LABORATORY Comment: Lowest Risk: <100 mg/dL Lower Risk: 100-129 mg/dL Borderline High Risk: 130-159 mg/dL High Risk: 160-189 mg/dL Very High Risk: >yh=513 mg/dL Specimen Anatomical Collection Method Collection Time Receive d Time (Source) Location / / Volume Laterality Blood specimen 11/30/2019 2:15 AM 020 2:29 (specimen) EDT AM EDT Resulting Agency Comment Spec In Lab Gretchen Yoon MD CHEMISTRY ORDERABLES Performing Organization Address City/[facility]/ZIP Code Phon e Number [address] (ABNORMAL) Hemoglobin A1c (11/30/2019 [...] Mellitus, Diabetes Care 2013; 36: Suppl. 1, P23-01 Est Avg Gluc See note mg/dL [facility] LABORATORY Comment: Estimated Average Glucose [...] with hemoglobinopathies. Additional resources are available on [facility] ADA website. Kiko CARBAJAL, Jenn J, Silas R, et al. ??Tr anslating the A1C assay into estimated average glucose values. ??Diabetes Care 2008:31(8):0583-9810. Specimen Anatomical Collection Method Collection Time Receive d Time (Source) Location / / Volume Laterality Blood specimen 11/30/2019 2:15 AM 020 2:29 (specimen) EDT AM EDT Resulting Agency Comment Spec In Lab Gretchen Yoon MD CHEMISTRY ORDERABLES Performing Organization Address City/State/[place] [address] Lipid Panel (Reflex Direct LDL) (11/30/2019 2:15 AM EDT) athologist Signature Chol, Total 195 mg/dL [facility] Comment: Lower Risk: <200 mg/dL Average Risk: 200-239 mg/dL Higher Risk: >vr=769 mg/dL Triglycerides 93 mg/dL [facility] Comment: Average Risk/Lower Risk: <150 mg/dL Borderline High Risk: 150-199 mg/dL High Risk: 200-499 mg/dL Very High Risk: >ke=250 mg/dL HDL 32 mg/dL [facility] Comment: Males: ?? Higher Risk: <40 mg/dL Females: ?? HIgher Risk: <50 mg/dL LDL Cholesterol 144 mg/dL [facility] Comment: Lowest Risk: <100 mg/dL Lower Risk: 100-129 mg/dL Borderline High Risk: 130-159 mg/dL High Risk: 160-189 mg/dL Very High Risk: >qd=816 mg/dL Chol/HDL Ratio 6.1 ratio [facility] Lipid Interpretation See Note [facility] Comment: Lipid management should be guided by a p atient? s ASCVD risk, goals and preferences. ACC/AHA Guidelines recommend high intens ity statin if clinical ASCVD or LDL greater than or equal to 190 mg/dL. http://[employer].canvs.co/DDJ-NFT-Bdavsaiyf Adults aged 40-75 with LDL 70-189 mg/dL should have their 10 year ASCVD risk estimated with the ACC/AHA ASCVD risk es timator http://tools.acc.org/TZQBD-Prni-Pexfqpjn r/ Statin should be discussed if risk [...] Organization Address City/State/[place] [address] (ABNORMAL) CK (11/29/2019 6:35 PM EDT) athologist Signature CK, Total 2,780 (H) 0 - 200 [facility] unit/L [facility] Specimen Anatomical Collection Method Collection Time Receive d Time (Source) Location / / Volume Laterality Blood specimen 11/29/2019 6:35 PM 020 6:53 (specimen) EDT PM EDT Resulting Agency Comment Spec In Lab Gretchen Yoon MD CHEMISTRY ORDERABLES Performing Organization Address City/State/[place] [address] (ABNORMAL) Troponin (11/29/2019 6:35 PM EDT) athologist Signature Troponin-T 17.60 (H) 0.00 - [facility] 0.00 ng/mL [facility] Comment: result rechecked-az The 99th percentile for Troponin T is le ss than 0.01 ng/mL, any detectable cTnT concentration using this assay should be considered elevated. According to the third universal definit ion of myocardial infarction the following criteria with a clinical prese ntation consistent with acute myocardial ischemia meets the diagnosis for a myocardial infarction (VT). Detection of a rise and/or fall of [...] additional sample may be indicated. Reference: Third [place] Definition of Myocardial Infarction. Journal of the [place] [employer]iology 2012;60:1581-98 Specimen Anatomical Collection Method Collection Time Receive d Time (Source) Location / / Volume Laterality Blood specimen 11/29/2019 6:35 PM 020 6:53 (specimen) EDT PM EDT Resulting Agency Comment Spec In Lab Gretchen Yoon MD CHEMISTRY ORDERABLES Performing Organization Address City/State/[place] [address] EKG 12 Lead (11/29/2019 3:58 PM EDT) [facility] gist Method Time Signature Ventricular rate 73 BPM MUSE SYSTEM Atrial Rate 73 BPM MUSE SYSTEM P-R Interval 152 ms MUSE SYSTEM QRS Duration 84 ms MUSE SYSTEM Q-T Interval 404 ms MUSE SYSTEM QTC Calculated 445 ms MUSE SYSTEM (Bezet) Calculated P [place] 50 degrees MUSE SYSTEM Calculated R [place] -4 degrees MUSE SYSTEM Calculated T [place] 19 degrees MUSE SYSTEM INTERPRETATION Sinus rhythm [...] lung apex is excluded from the imaged [id number]. IMPRESSION: 1. ??New right internal jugular pulmonar [...] lung apex is excluded from the imaged [id number]. Procedure Note Estefani Harris MD - 11/29/2019Formattin [...] lung apex is excluded from the imaged [id number]. IMPRESSION 1. New right internal jugular pulmonary [...] (ABNORMAL) Differential, Automated (11/29/2019 2:32 PM EDT) [facility] Method Time Signature Neutrophils % 83.8 % [facility]OR[facility] Neutr Abs (ANC) 12.12 (H) 1.70 - [facility] 6.10 [facility] x10(3)/[facility] LABORATORY Lymphocytes % 9.1 % [facility]ORATORY Lymphocytes Abs 1.3 0.9 - 3.2 [facility] x10(3)/[facility] LABORATORY Monocytes % 6.2 % [facility]OR[facility]ORY Monocyte Abs 0.9 0.3 - 0.9 [facility] x10(3)/[facility] LABORATORY Eosinophils % 0.0 % [facility]OR[facility] Eosinophils Abs 0.0 0.0 - 0.4 [facility] x10(3)/[facility] LABORATORY Basophils % 0.3 % [facility]OR[facility]ORY Basophils Abs 0.0 0.0 - 0.1 [facility] x10(3)/[facility] LABORATORY Immature Gran % 0.60 % [facility] Comment: Immature granulocytes(IG's)percentage an d absolute count will include metamyelocytes, myelocytes, and promyelo cytes. Blood smears from CBCs yielding IG's will be scanned manually for concor dance. If this scan disagrees with the automated IG or if promyelocytes are not ed, a manual differential will be performed. Pita Gran Abs 0.08 (H) 0.00 - 0.04 x10(3)/[facility] LABORATORY Specimen Anatomical Collection Method Collection Time Receive d Time (Source) Location / / Volume Laterality Blood specimen 11/29/2019 2:32 PM 020 2:55 (specimen) EDT PM EDT Resulting Agency Comment Spec In Lab Darrell Glasgow MD HEMATOLOGY ORDERABLES Performing Organization Address City/State/[place] [address] (ABNORMAL) Hemogram (11/29/2019 2:32 PM EDT) Analysis Performed At Patho logist Time Signature WBC 14.5 (H) 4.0 - 9.5 [facility] x10(3)/[facility] LABORATORY RBC 4.53 (L) 4.58 - [facility] 5.54 [facility] x10(6)/[facility] LABORATORY Hemoglobin 13.1 (L) 13.7 - [facility] 16.5 gm/dL [facility] Hematocrit 40.8 40.5 - [facility] 48.5 % [facility] MCV 90.1 82.9 - [facility] 93.1 [facility] LABORATORY MCH 28.9 27.5 - [facility] 32.1 pg [facility] MCHC 32.1 32.0 - [facility] 35.7 gm/dL [facility] Platelets 184 145 - 357 [facility] x10(3)/[facility] LABORATORY RDWSD 47.8 (H) 36.0 - [facility] OLIVIA 45.0 [facility] LABORATORY RDWCV 14.5 (H) 11.4 - [facility] OLIVIA 13.8 % [facility] MPV 11.9 7.6 - 12.9 [facility] nRBC % Auto 0.0 % [facility] nRBC Abs Auto 0.000 0.000 - MELINA OLIVIA 0.000 [facility] x10(3)/[facility] LABORATORY Specimen Anatomical Collection Method Collection Time Receive d Time (Source) Location / / Volume Laterality Blood specimen 11/29/2019 2:32 PM 020 2:55 (specimen) EDT PM EDT Resulting Agency Comment Spec In Lab Darrell Glasgow MD HEMATOLOGY ORDERABLES Performing Organization Address City/State/ZIP Code Phon e Number [address] (ABNORMAL) CK (11/29/2019 2:32 PM EDT) athologist Signature CK, Total 3,282 (H) 0 - 200 [facility] unit/L [facility] Specimen Anatomical Collection Method Collection Time Receive d Time (Source) Location / / Volume Laterality Blood specimen 11/29/2019 2:32 PM 020 2:32 (specimen) EDT PM EDT Resulting Agency Comment Spec In Lab Gretchen Yoon MD CHEMISTRY ORDERABLES Performing Organization Address City/[facility] [place] [address] (ABNORMAL) Troponin (11/29/2019 2:32 PM EDT) athologist Signature Troponin-T 20.33 (H) 0.00 - [place] OLIVIA 0.00 ng/mL [facility] Comment: The 99th percentile for Troponin T is le ss than 0.01 ng/mL, any detectable cTnT concentration using this assay should be considered elevated. According to the third universal definit ion of myocardial infarction the following criteria with a clinical prese ntation consistent with acute myocardial ischemia meets the diagnosis for a myocardial infarction (VT). Detection of a rise and/or fall of [...] additional sample may be indicated. Reference: Third [place] Definition of Myocardial Infarction. Journal of the [place] [employer] 2012;60:1581-98 Specimen Anatomical Collection Method Collection Time Receive d Time (Source) Location / / Volume Laterality Blood specimen 11/29/2019 2:32 PM 020 2:32 (specimen) EDT PM EDT Resulting Agency Comment Spec In Lab Gretchen Yoon MD CHEMISTRY ORDERABLES Performing Organization Address [facility] [place] [address] (ABNORMAL) APTT (11/29/2019 2:32 PM EDT) P athologist Signature PTT 114 25 - 37 [facility] (Critical) [facility] [...] Yoon MD HEMATOLOGY ORDERABLES Performing Organization Address [facility] [place] [address] (ABNORMAL) Prothrombin Time (11/29/2019 2:32 PM EDT) P athologist Signature PT 13.5 (H) 9.4 - 12.5 [facility] LABORATORY INR 1.2 [facility] Comment: An INR <2.0 [...] Organization Address City/State/[place] [address] (ABNORMAL) Hepatic Function Panel (11/29/2019 2:32 PM EDT) P athologist Signature Total Protein 6.3 6.1 - 8.0 [facility] gm/dL [facility] Albumin 3.6 3.2 - 5.2 [facility] gm/dL [facility] AST 257 (H) 0 - 39 [facility] unit[facility]L [facility] ALT 50 0 - 55 [facility] unit/L [facility] Alk Phos 84 40 - 130 [facility] unit/L [facility] Total 0.3 0.2 - 1.3 [facility] Bilirubin mg/dL [facility] Bili, Direct 0.1 0.0 - 0.3 [facility] OLIVIA mg/dL [facility] Specimen Anatomical Collection Method Collection Time Receive d Time (Source) Location / / Volume Laterality Blood specimen 11/29/2019 2:32 PM 020 2:32 (specimen) EDT PM EDT Resulting Agency Comment Spec In Lab Gretchen Yoon MD CHEMISTRY ORDERABLES Performing Organization Address City/[facility]/[place]IP [place] [address] (ABNORMAL) pro-Brain Natriuretic Peptide (11/29/2019 2:32 PM EDT) P athologist Signature ProBNP 272 (H) <=125 pg/mL [facility] Specimen Anatomical Collection Method Collection Time Receive d Time (Source) Location / / Volume Laterality Blood specimen 11/29/2019 2:32 PM 020 2:32 (specimen) EDT PM EDT Resulting Agency Comment Spec In Lab Gretchen Yoon MD CHEMISTRY ORDERABLES Performing Organization Address City/[facility]/ZIP Code Phon e Number [place] OL[place]IA[address] Magnesium (11/29/2019 2:32 PM EDT) athologist Signature Magnesium 0.76 0.69 - 1.07 [facility] mmol/L [facility] Specimen Anatomical Collection Method Collection Time Receive d Time (Source) Location / / Volume Laterality Blood specimen 11/29/2019 2:32 PM 020 2:32 (specimen) EDT PM EDT Resulting Agency Comment Spec In Lab Gretchen Yoon MD CHEMISTRY ORDERABLES Performing Organization Address City/State/ZIP Code Phon e Number [address] (ABNORMAL) Basic Metabolic Panel (non-fasting) (11/29/2019 2:32 PM EDT) athologist Signature Glucose Lvl 149 65 - 199 [facility] mg/dL [facility] Comment: Diabetes: >=200 mg/dL plus symp toms BUN 16 10 - 20 mg/dL [facility] Creatinine 0.94 0.80 - 1.50 mg/dL [facility] Sodium 135 135 - 145 mmol/L [facility] Potassium 4.5 3.5 - 5.0 mmol/L [facility] Comment: Please note: ??Patients with WBC >100,00 0 may have falsely elevated Potassium levels. ??For accurate Potassium quantif ication in these patients send serum separator tube (gold top) for subsequent determinations. ??Contact the Clinical Chemistry Laboratory if there are any qu estions. Chloride 105 98 - 107 mmol/L [facility] CO2 15 (L) 22 - 31 mmol/L [facility] Anion Gap 15 5 - 15 mmol/L [facility] Calcium 8.0 (L) 8.5 - 10.5 mg/dL [facility] Estimated GFR 80 >=60 mL/min/1.73 m?? [facility] Comment: The eGFR was calculated using the CKD-EP I equation. As with all creatinine based estimates of kidney function, eGFR values calculated with the CKD-EPI equation are not accurate in patients wi th acute kidney failure, extremes of body mass or the acutely ill. http://[employer]/[facility]ULSAnkf eGFR 93 >=60 mL/min/1.73 m?? [facility] Comment: The eGFR was calculated using the CKD-EP I equation. As with all creatinine based estimates of kidney function, eGFR values calculated with the CKD-EPI equation are not accurate in patients wi th acute kidney failure, extremes of body mass or the acutely ill. http://[employer]/[facility] TULSAnkf Specimen Anatomical Collection Method Collection Time Receive d Time (Source) Location / / Volume Laterality Blood specimen 11/29/2019 2:32 PM 020 2:32 (specimen) EDT PM EDT Resulting Agency Comment Spec In Lab Gretchen Yoon MD CHEMISTRY ORDERABLES Performing Organization Address City/[facility] [place] [address] EKG 12 Lead (11/29/2019 11:38 AM EDT) [facility] gist Method Time Signature Ventricular rate 60 BPM MUSE SYSTEM Atrial Rate 60 BPM MUSE SYSTEM P-R Interval 140 ms MUSE SYSTEM QRS Duration 86 ms MUSE SYSTEM Q-T Interval 474 ms MUSE SYSTEM QTC Calculated 474 ms MUSE SYSTEM (Bezet) Calculated P [place] 48 degrees MUSE SYSTEM Calculated R [place] 14 degrees MUSE SYSTEM Calculated T [place] 58 degrees MUSE SYSTEM INTERPRETATION Normal sinus [...] Organization Address City/[facility] Phon e Number MUSE SYSTEM CARDIAC CATHETERIZATION (11/29/2019 11:15 AM EDT) Anatomical Region Laterality Modality Other Specimen (Source) Anatomical Location Collection Method / Collectio n Time Received Time / Laterality Volume Narrative 11/30/2019 1:09 PM EDT ?[facility] ? Cardiac Cathete rization/Intervention Report ? Patient Name: Salinas, Angel Luis H. ? Procedure Date: 11/29/2019 ? A #: [id number] ? Primary Physician: Shaan, Gretchen N ? Case #: [id number] ? File Name: [id number] ? Catheterization Order Number: [id number] ? [facility] ?[facility] ? Final Report [place], [place] ? Patient Name: ? Angel Luis Salinas ? ID#: ?[id number] ? : ?1945 ? Procedure Date: ? [...] require ?modification of this regimen. C marvult [facility] Interventional Cardiology for ?questions. ? [...] be different from the original. [facility] Cardiac Catheterization/Intervention Re port Patient Name: SalinasAngel Luis Procedure Date: 11/29/2019 A #: [id number] Primary Physician: Gretchen Yoon Case #: [id number] File Name: [id number] Catheterization Order Number: [id number] [facility] Final Report [place], [place] Patient Name: Angel Luis Salinas ID#: [id number] : 1945 Procedure Date: November 29, [...] was designated as ASA Class IV. The [facility] clinical frailty scale is 4: [...] priority for the procedure was Emergent. The [facility] for the procedure was [...] this intervention was 10%. The final TI VT flow was 2. Distal 90% Thrombectomy and [...] this intervention was 10%. The final TI VT flow was 2. Vascular Access: Vascular Access [...] require modification of this regimen. Consult D [facility] Interventional Cardiology for questions. [...] Signature POC pH 7.33 (L) 7.35 - [facility] 7.45 [facility] POC PCO2 33 (L) 35 - 45 [facility] mmHg [facility] POC PO2 56 (L) 85 - 104 [facility] LABORATORY POC Base Excess -8.0 (L) -3.0 - 3.0 [facility] K mmol/L [facility] POC HCO3 17.4 (L) 20.0 - [facility] 26.0 [facility] mmol/[facility] LABORATORY POC Sodium 137 135 - 145 [facility] mmol/L [facility] POC Potassium 3.6 3.5 - 5.0 [facility] mmol/L [facility] POC Ionized Ca 1.15 1.15 - [facility] 1.33 [facility] POC Hematocrit 37.0 (L) 40.0 - [facility] 51.0 % [facility] POC Calc Hgb 12.6 (L) 13.7 - [facility] 17.5 gm/dL [facility] Comment: The calculation of hemoglobin f rom hematocrit assumes a normal MCHC. POC Bgas Loc CC LAB [facility] Specimen Anatomical Collection Method Collection Time Receive d Time (Source) Location / / Volume Laterality Blood specimen 11/29/2019 9:17 AM 020 7:35 (specimen) EDT AM EDT Gretchen Yoon MD CHEMISTRY ORDERABLES Performing Organization Address City/State/[place] [address] EKG 12 Lead (11/29/2019 9:01 AM EDT) Component Value Ref Range Test Analysis Performed Pathologis t Method Time At Signature Ventricular rate 80 BPM MUSE SYSTEM Atrial Rate 79 BPM MUSE SYSTEM QRS Duration 94 ms MUSE SYSTEM Q-T Interval 436 ms MUSE SYSTEM QTC Calculated 502 ms MUSE SYSTEM (Bezet) Calculated R [place] 54 degrees MUSE SYSTEM Calculated T [place] 80 degrees MUSE SYSTEM INTERPRETATION Normal sinus rhythm MUSE SYSTEM Inferior infarct , possibly acute Prolonged QT * ACUTE VT ?? Consider right ventricular involvement in acute [...] tablet 75 mg 0955 (Given - Provider: Rebecac Anderson RN) 08 (Given - Provider: Amaya [...] ONCE, 1 dose, 12/06/19 at 0515, Ad surgical aides teacher over 120 Minutes magnesium sulfate 2 g [...] mg(Linked Group 1) 0954 (Given - Provider: Aamya Anderson RN) 0925 (Given - Provider: Amaya [...] Amaya Anderson RN)1922 (Rate/Dose Change - Provider: Amaay Anderson RN) 0506 (New Bag - Provider: [...] Bentley, NIURKA) 0-8,000 Units, Intravenous, BOLUS PER [facility] PROTOCOL, Starting 12/06/19 at 0926, Until [...] Oral, EVERY 4 HOURS PRN, Startin g Davilla 11/30/19 at 2016, Until Sun12/08/19 at 1811, hypokalemia
Administer for serum potassium (mMol/L) of 3.9 - 4 See instructions for Potassium Protocol in online policies.
Routine Or potassium chloride ER (K-Dur/Klor-Con) tablet 40 mEqJump to med 40 mEq, Oral, EVERY 4 HOURS PRN, Startin g Davilla 11/30/19 at 2016, Until Sun12/08/19 at 1811, hypokalemia
Administer for serum potassium (mMol/L) of 3.6 - 3.8 See instructions for Potassium Protocol in online policies.
Routine documented in this encounter Care Teams Government Relations Director Relationship Specialty Start Date End Date France Lam MD PCP - General 05/02/13 02/04/20 [address] [place] [address] documented as of this encounter
--- OUTSIDE RECORDS SUMMARY | 2022-05-04 11:04 | XMS_ITS | Encounter Summary ---
:1945 Author Organization [facility] [place] [address] Care Team Providers Name Role Phone France Lam MD Primary Care Provider Encounter Details Date Type Department Care Team Description 11/30/2019 Orders Only Cardiology [facility] [place] [address] Social History Tobacco Use Types Packs/Day [...] fajardo ? (Age): 1945(74y) Med Rec#: ? [id number] ?Sex: ?M ? Site Loc: ? Ht / Wt: ??(cm)/ (kg) ? Pt. Loc: ? Study Date: ?? 11/29/2019 ?Pt. Type: Tape: ? Referring: Faustino Garduno Reading: Dawit Mejia ([id number]) Foreign Service Officer: [employer] Enroller: Cedric Eric ([id number]) Interpreting Fellow: Cedric Eric ([id number]) Diagnosis: SUMMARY: 1. Limited bedside echocardiogram perfor med by container filler geology teacher for hypotension following inferior STEMI . 2. [...] ? Mid-Inferior ?Akinetic ? Mid-Inferoseptal ?Hypokinetic ? [place]-Septal ? Normal ? [place]-Anterior ? Normal ? [place]-Lateral ?Normal ? [place]-Inferior ? Hypokinetic ? [place]-Tip ?Normal ? This report has been electronically sign ed by: _ Dawit Mejia MD ? 11/30/2019 12: 53:59 Images reviewed and interpretation rafaela ielokesh [facility] Cardiac Ultrasound Laboratory Procedure Note Dawti Mejia MD - 11/30/2019Formatti ng of this note might be different from the original. Procedure: Transthoracic Echocardiogram Patient: domenica ACOSTA(Age): 6(74y) Med Rec#: [id number] Sex: M Site Loc: Ht / Wt: (cm)/ (kg) Pt. Loc: Study Date: 11/29/2019 Pt. Type: Tape: Referring: Faustino Garduno Reading: Dawit Mejia ([id number]) Foreign Service Officer: [employer] Enroller: Cedric Eric ([id number]) Interpreting Fellow: Cedric Eric ([id number]) Diagnosis: SUMMARY: 1. Limited bedside echocardiogram perfor med by container filler geology teacher for hypotension following inferior STEMI . 2. [...] Normal Mid-Posterolateral Akinetic Mid-Inferior Akinetic Mid-Inferoseptal Hypokinetic [place]-Septal Normal [place]-Anterior Normal [place]-Lateral Normal [place]-Inferior Hypokinetic [place]-Tip Normal This report has been electronically sign ed by: _ Dawit Mejia MD 11/30/2019 12:53:59 Images reviewed and interpretation verif ied [facility] Cardiac Ultrasound Laboratory Unknown ECHO ORDERABLES documented in this encounter Visit Diagnoses Not on filedocumented in this encounter Care Teams Top Precipitator Operator Relationship Specialty Start Date End Date France Lam MD PCP - General 05/02/13 02/04/20 [address] [place] [address] documented as of this encounter
--- OUTSIDE RECORDS SUMMARY | 2022-05-04 11:05 | XMS_ITS | Encounter Summary ---
:1945 Author Organization [facility] [place] [address] Care Team Providers Name Role Phone France Lam MD Primary Care Provider Encounter Details Date Type Department Care Team Description 11/29/2019 External Results [place] [address] Social History Tobacco Use Types Packs/Day [...] on filedocumented in this encounter Care Teams Science Intern Relationship Specialty Start Date End Date France Lam MD PCP - General 05/02/13 02/04/20 [address] [place] [address] documented as of this encounter
--- OUTSIDE RECORDS SUMMARY | 2022-05-04 11:05 | XMS_ITS | Encounter Summary ---
:1945 Author Organization [facility] [place] [address] Care Team Providers Name Role Phone France Lam MD Primary Care Provider Encounter Details Date Type Department Care Team Description 05/13/2013 Orders Only Vascular Surgery at [facility] (xi l[facility] political cartoonist disease) [facility] (Primary Dx) [place] [address] Social History Tobacco Use Types Packs/Day [...] unspecified documented in this encounter Care Teams Sewage Plant Operator Relationship Specialty Start Date End Date France Lam MD PCP - General 05/02/13 02/04/20 [address] [place] [address] documented as of this encounter
--- OUTSIDE RECORDS SUMMARY | 2022-05-04 11:05 | XMS_ITS | Encounter Summary ---
:1945 [place] [address] Care Team Providers Name Role Phone France Lam MD Primary Care Provider Encounter Details Date Type Department Care Team Description 11/29/2019 Telephone Cardiovascular [facility] Silvio piedra MD [facility] Devin coh[place] [address] [place] [address] [phone] (Wo rk) Social History Tobacco Use Types [...] 50s EKG: Inferior STEMI Silvio Real MD Systems Consultant PGY-4 11/29/2019 documented in this encounter Plan of Treatment Not on filedocumented as of this encounter Visit Diagnoses Not on filedocumented in this encounter Care Teams Director Of Product Development Relationship Specialty Start Date End Date France Lam MD PCP - General 05/02/13 02/04/20 [address] [place] [address] documented as of this encounter
--- OUTSIDE RECORDS SUMMARY | 2022-05-04 11:05 | XMS_ITS | Encounter Summary ---
:1945 Author Organization [facility] [place] [address] Care Team Providers Name Role Phone France Lam MD Primary Care Provider Encounter Details Date Type Department Care Team Description 05/13/2013 Ancillary Vascular Surgery at [facility] (Primary Appointment [facility] Cesilia [place], [place] Dx) [place] [id number] Social History Tobacco Use Types Packs/Day Years [...] Component Value Ref Test Analysis Performed At [facility] gist Range Method Time Signature VB Text VASCUBASE Report Department: Vascular Surgery Lab Patient: [id number] (ANGEL LUIS HI) CPT Code: 79999 ICD-9: 440.21 Referring Physician: FRANCE LAM Indication: [...] Posterior Tibial (Ankle) Art derrell ??84 ?0.64 ??Drew- Biphasic ?? Interpretation: RIGHT: ??Mild lower extremity [...] limb documented in this encounter Care Teams Customer Accounts Advisor Relationship Specialty Start Date End Date France Lam MD PCP - General 05/02/13 02/04/20 [address] [place] [address] documented as of this encounter
--- OUTSIDE RECORDS SUMMARY | 2022-05-04 11:05 | XMS_ITS | Encounter Summary ---
:1945 Author Organization [facility] Address [facility] [address] [place] [address] Care Team Providers Name Role Phone Fracne Lam MD Primary Care Provider Reason for Visit Reason Comments Claudication Encounter Details Date Type Department Care Team Description 05/13/2013 Office Visit Vascular Surgery at David Sim from [facility] MD Bobby peripheral vascular Critical access hospital dis ease, left ([address] Drive [address] Tenn[address]) [place], [place] VASCULAR SURGERY [address] [place] [address] [phone] Social History Tobacco Use Types Packs/Day Years [...] unspecified documented in this encounter Care Teams Senior Web Engineer Relationship Specialty Start Date End Date France Lam MD PCP - General 05/02/13 02/04/20 [address] [place] [address] documented as of this encounter
[2022-05-09 11:08] VITALS: BP 106/61; PULSE 48
--- OUTSIDE RECORDS SUMMARY | 2022-05-09 11:12 | XMS_ITS | Encounter Summary ---
:1945 Author Organization [facility] Address [address] [place] [address] Care Team Providers Name Role Phone Jennifer Gomez MARKET NEWS REPORTER Primary Care Provider Encounter Details Date Type Department Care Team Description 01/25/2022 Lab Requisition [facility] Center Outr Resulting Lab, Pathology & Laboratory Provider [facility] [address], [place] [id number] Social History Tobacco Use Types Packs/Day Years Used Date Smoking Tobacco: Never Assessed Sex Assigned at Date Recorded [...] BACTERIAL PATHOGENS BY PCR (01/24/2022 14:50 EDT) [facility] Method Time Signature Salmonella PCR Negative Negative 01/25/2022 [facility] 22:03 EDT [facility] Shigella/Enteroin Negative Negative 01/25/2022 [facility] vasive E. coli 22:03 EDT CENTER LABORATORY SERVICES HN LAB Negative Negative 01/25/2022 [facility] CAMPYLOBACTER PCR 22:03 EDT CENTER LAB[facility] SERVICES Shiga Toxin PCR Negative Negative 01/25/2022 [facility] 22:03 EDT CENTER LAB[facility] SERVICES Specimen Anatomical Collection Method Collection Time Receive d Time (Source) Location / / Volume Laterality Feces SPECIMEN FROM 01/24/2022 14:50 01/25/2022 [facility] / Unknown EDT 17:30 EDT Provider Outr Resulting Lab MICROBIOLOGY - GENERAL ORD ERABLES Performing Organization Address City/State/[facility] Code Phon e Number [facility] [address] [place] [address] SERVICES documented in this encounter Visit Diagnoses Not on filedocumented in this encounter Care Teams Cdl Company Driver Relationship Specialty Start Date End Date Jennifer Gomez, NAMITA PCP - General 05/10/15 [facility] [address] [place] [address] documented as of this encounter
--- OUTSIDE RECORDS SUMMARY | 2022-05-09 11:12 | XMS_ITS | Encounter Summary ---
:1945 Author Organization [facility] Address [address] [place] [address] Care Team Providers Name Role Phone Jennifer Gomez ONCOLOGY REGISTRAR Primary Care Provider Encounter Details Date Type Department Care Team Description 02/15/2022 Lab Requisition [facility] Outr Resulting Lab, Pathology & Laboratory Provider [facility] [address] [id number] Social History Tobacco Use Types Packs/Day Years [...] Results (ABNORMAL) T3 FREE (02/15/2022 10:37 EDT) P athologist Signature T3, Free 9.3 (H) 2.8 - 5.3 02/15/2022 [facility] MEDICAL pg/mL 21:51 EDT CENTER LAB[facility] SERVICES Specimen Anatomical Collection Method Collection Time Receive d Time (Source) Location / / Volume Laterality Blood VENOUS BLOOD / 02/15/2022 10:37 Unknown EDT 21:20 EDT Provider Outr Resulting Lab CHEMISTRY & BLOOD GAS CHLOE Duncan Organization Address City/State/ZIP Code Phon e Number [facility] [address] [place] [address] SERVICES documented in this encounter Visit Diagnoses Not on filedocumented in this encounter Care Teams Supervisor Motor Vehicle Assembly Relationship Specialty Start Date End Date Jennifer Gomez, ONCOLOGY REGISTRAR PCP - General 05/10/15 [facility] [address] [place] [address] documented as of this encounter
--- OUTSIDE RECORDS SUMMARY | 2022-05-09 11:12 | XMS_ITS | Encounter Summary ---
:1945 Author Organization [facility] Address [address] [place] [address] Care Team Providers Name Role Phone Jennifer Gomez CHECK EXAMINER Primary Care Provider Encounter Details Date Type Department Care Team Description 04/24/2022 Lab Requisition [facility] Outr Resulting Lab, Pathology & Laboratory Provider [facility] [address] [id number] Social History Tobacco Use Types Packs/Day Years [...] encounter Results T3 FREE (04/24/2022 11:50 EDT) P athologist Signature T3, Free 2.8 2.8 - 5.3 04/25/2022 [facility] MEDICAL pg/mL 21:09 EDT CENTER LABORATORY SERVICES Specimen Anatomical Collection Method Collection Time Receive d Time (Source) Location / / Volume Laterality Blood VENOUS BLOOD / 04/24/2022 11:50 Unknown EDT 20:27 EDT Provider Outr Resulting Lab CHEMISTRY & BLOOD GAS CHLOE IBARRA Performing Organization Address City/State/ZIP Code Phon e Number [facility] [address] [place] [address] SERVICES documented in this encounter Visit Diagnoses Not on filedocumented in this encounter Care Teams Signs And Displays Sales Representative Relationship Specialty Start Date End Date Jennifer Gomez, CHECK EXAMINER PCP - General 05/10/15 [facility] [address] [place] [address] documented as of this encounter
--- OUTSIDE RECORDS SUMMARY | 2022-05-09 11:13 | XMS_ITS | Encounter Summary ---
:1945 Author Organization [facility] Address [facility] [place] [address] Care Team Providers Name Role Phone Jovany Lott MD Primary Care Provider Encounter Details Date Type Department Care Team Description 08/31/2020 TH Visit Cardiology at [facility] Faustino Garduno Atrial fibrillation, unspeci fied type (Primary Dx); (TeleHealth) [facility] MD Jaquan Acute ST elevation myocardial infarction (STEMI) of inferior wall; [facility] Acute systolic CHF (congesti ve heart failure), NYHA class 3, MILVIA/AHA stage C; [place], [place] Center Hyperlipidemia, unspecified hyperlipidem ia type; [id number] [place], [place] Intracranial hemorrhage; [phone] PFO (patent foramen ovale); [phone] Claudication fr om peripheral vascular disease, left [...] with ICH, bilateral PE; paroxysmal atrial fibrillation [[id number]: 5]; PAD; HLD; HTN; smoking and PFO,who [...] Chou at the [facility] [address]. However, he has not grossly noted that [...] a non-culprit artery. S/P DESx3 in the pyhbwqyv-bm-bgcyea RCA. Aspiration thrombectomy performed, and integrellin bolus [...] with ICH, bilateral PE; paroxysmal atrial fibrillation [[id number]: 5]; PAD; HLD; HTN; smoking and PFO, [...] Will also discuss further with his local general magistrate, Dr. Mejia. 3. Bilateral PE - Case discussed with Dr. Sanchez above; likely provoked in lieu of his prolonged hospitalization. He has completed at least 6 months of oral A/C (coinciding treatment for his afib). 4. PAD - Continue optimal medical therapy for now. Will place referral for SET/walking program. F/U 3 months Faustino Garduno MD Time spent: 35 minutes Addendum 09/13/20: Called [phone] or [phone] and was able to speak to Dr. Faustino Chou. [place] [facility] [place] [facility]. Dr. 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 5RBCs also noted on urinanalysis that subsequently cleared on repeat testing. documented in this encounter Plan of Treatment Upcoming Encounters Date Type Specialty Care Team Description 06/30/2022 Office Visit Endocrinology Alan Terrell MD [facility] ENDOCRINOLOGY [place], [place] [address] (Wo rk) documented as of this encounter Visit Diagnoses Diagnosis [...] unspecified documented in this encounter Care Teams Numerical Control Nesting Operator Relationship Specialty Start Date End Date Jovany Lott MD PCP - General Family Medicine 02/05/[address] [place] [address] [place] [phone] documented as of this encounter
--- OUTSIDE RECORDS SUMMARY | 2022-05-09 11:13 | XMS_ITS | Encounter Summary ---
:1945 Author Organization [facility] [place] [address] Care Team Providers Name Role Phone Jovany Lott MD Primary Care Provider Encounter Details Date Type Department Care Team Description 10/12/2020 Notes Only Cardiology at [facility] Willow Callejas RN [facility] [place] [address] Social History Tobacco Use Types Packs/Day Years Used Date Former Smoker Cigars 0.5 Quit: 11/29/19 20 Smokeless Tobacco: Former User Sex Assigned at Date Recorded Not on file documented as of this encounter Progress Notes Willow Clalejas RN - 10/12/2020 2:06 PM EDTSummary: Structural Heart Notes Contacted Mr. Hi to discuss interest in scheduling left atrial appendage closure (BEKAH). He verbalizes preference to postpone and states, I haven't made up my mind yet about the Watchman, I want totalk to my doctor at the [facility] and do a little more research before I decide what to do, I'm a little afraid of it. He notes that he has a scheduled clinic visit in November and will discuss with Dr. Garduno at that time. documented in this encounter Plan of Treatment Upcoming Encounters Date Type Specialty Care Team Description 06/30/2022 Office Visit Endocrinology Alan Terrell MD [facility] [address] [place], [place] [address] (Wo rk) documented as of this encounter Visit Diagnoses Not on filedocumented in this encounter Care Teams Biometrics Specialist Relationship Specialty Start Date End Date Jovany Lott MD PCP - General Family Medicine 02/05/20 [address] [place] [address] documented as of this encounter
--- OUTSIDE RECORDS SUMMARY | 2022-05-09 11:13 | XMS_ITS | Encounter Summary ---
:1945 Author Organization [facility] Address [address] [place] [address] Care Team Providers Name Role Phone Jennifer Gomez ORTHOPEDIC SHOE FITTER Primary Care Provider Encounter Details Date Type Department Care Team Description 09/07/2020 Lab Requisition [facility] Outr Resulting Lab, Pathology & Laboratory Provider [facility] [address] [id number] Social History Tobacco Use Types Packs/Day Years Used Date Smoking Tobacco: Never Assessed Sex Assigned at Date Recorded Not on file documented as of this encounter Plan of Treatment Not on filedocumented as of this encounter Procedures Procedure Name Priority Date/Time Associated Diagnosis Comme nts COVID-19 TEST UVC Today 09/07/2020 9:45 EST LAB PCR COVID-19 TESTING Routine 09/07/2020 9:45 EST Resu lts for this procedure are i n the results section. documented in this encounter Results COVID-19 TEST UVC LAB PCR (09/07/2020 9:45 EST) Specimen Anatomical Location Collection Method Collection Time Received Time (Source) / Laterality / Volume Swab ENTIRE NASOPHARYNX 09/07/2020 9:45 2020 / Unknown EST 20:56 EST Provider Outr Resulting Lab MICROBIOLOGY - GENERAL ORD ERABLES Performing Organization Address City/State/ZIP Code Phon e Number [facility] [address] [place] [address] SERVICES COVID-19 TESTING (09/07/2020 9:45 EST) Analysis Performed At Patho logist Time Signature COVID-19 Negative Negative 09/08/2020 [facility] MEDICAL rt-PCR Result 14:27 EST CENTER LABORATORY SERVICES Comment: This test has not been FDA cleared or ap proved. This test has been authorized by FDA under an EUA for use by authorized laboratories. This test has been authorized only for detection of nucleic acid fro m 2019-nCoV, not for any other viruses o r pathogens. This test is only authorized for the duration of the declaration that circumstances exist justifying the authorization of emergency use of in vitro d iagnostic tests for detection and/or puja gnosis of 2019-nCoV under section 564(b)(1) of Act, 21 U.S.C ?? 360bbb-3(b) (1), unless the authorization is terminated or revoked sooner. Negative results do not preclude 2019-nC oV infection and should not be used as the sole basis for treatment or other patient management decisions. Negative results must be combined with clinical observa tions, patient history, and epidemiologi álvaro information. This test was developed and its performa nce characteristics determined by [facility]. It has not been cleared or approved by the US Food and Drug Administration. FDA does not require this test to go through premarket FDA review. This test is used for clinical purposes. It should not be regarded as investigational or for research. This laboratory is certified under the Clinical Laboratory Improvement Amendm ents (CLIA) as qualified to perform high complexity clinical laboratory testing. This test is based on the [facility] COVID-19 E mergency Use Authorization (EUA) assay, with minor modification as defined by the FDA Performed on the Absolute Antibodyo 7 Pro RT-PCR System. Performing Lab [facility] Lab 09/08/2020 14:27 EST [facility] SERVICES Specimen Anatomical Collection Method Collection Time Receive d Time (Source) Location / / Volume Laterality Swab 09/07/2020 9:45 09/07/2020 EST 20:56 EST Provider Outr Resulting Lab MICROBIOLOGY - GENERAL ORD ERABLES Performing Organization Address City/State/ZIP Code Phon e Number [facility] [address] [place] [address] SERVICES documented in this encounter Visit Diagnoses Not on filedocumented in this encounter Care Teams Offset Printer Relationship Specialty Start Date End Date Jennifer Gomez NP PCP - General 05/10/15 [facility] [address] [place] [address] documented as of this encounter
--- OUTSIDE RECORDS SUMMARY | 2022-05-09 11:13 | XMS_ITS | Encounter Summary ---
:[address] [facility] Address [address] [place] [address] Care Team Providers Name Role Phone Jennifer Gomez BIOSECURITY OFFICER Primary Care Provider Encounter Details Date Type Department Care Team Description 02/07/2020 Lab Requisition [facility] Outr Resulting Lab, Pathology & Laboratory Provider [facility] [address] [place] [address] Social History Tobacco Use Types [...] - [facility] COVID TEST (02/07/2020 7:59 EDT) Analysis Performed At [facility] Time Signature COVID-19 NEGATIVE Negative 02/08/2020 [facility] rt-PCR Result 14:09 EDT [facility] Comment: 2019-novel Coronavirus (2019-nCoV) not d etected by the qRT-PCR assay. Consider testing for other respiratory viruses or re-collecting for 2019-nCoV testing. Note: Optimum timing for peak viral levels du ring infections caused by 2019-nCoV have not been determined. Collection of multiple specimens from the same patient may be necessary to detect the virus. Limitations Positive results are indicative of activ e infection with SARS-CoV-2 but do not rule out bacterial infection or co-infection with other viruses. The agent detected may not be the definite cause of diseas e. In addition, detection of viral RNA m ay not indicate the presence of infectious virus or that SARS-CoV-2 is the causative agent for clinical symptoms. Negative results do not preclude SARS-Co V-2 infection and should not be used as the sole basis for patient management decisions. Negative results must be combined with clinical observations, patient his tory, and epidemiological information. F alse negative results may also occur if amplification inhibitors are present in the specimen or if inadequate numbers of organisms are present in the specimen. Op timum specimen types and timing for peak viral levels during infections caused by SARS-CoV-2 have not been fully determined. Collection of multiple specimens (types and time points) from the same patient may be necessary to detect the virus. The test was validated for use with uppe r respiratory specimens obtained via nasopharyngeal or oropharyngeal swabs in VTM, UTM, M4, M5, M6, saline, and MTM media. The performance of this test has not be en established for other specimens. Spec imens collected using other FDA recommended Specimen Collection Materials listed in the FDA COVID-19 Diagnostic Technologies communication (September 25, 2019) are pr ocessed with the caveat that they were n ot all validated for use with this test and the result must be interpreted in this context. Furthermore, a false negative results may occur if a specimen is improperly collected, transported or handled. If the virus mutates in the RT-PCR targe t region, SARS-CoV-2 may not be detected or may be detected less predictably. Inhibitors or other types of interferenc e may produce a false negative result. An interference study evaluating the effect of common cold medications was not performed. This test is not FDA-cleared but its per formance characteristics were established by our CLIA-certified, CAP-accredited, high complexity laboratory in accordance with CLIA regulations, College of Americ an Pathologists (CAP) guidelines (Aug), and FDA guidance (Aug 30, 2019). This test is only for use under the Food and Drug Administration's Emergency Use Authorization. Specimen Anatomical Location Collection Method Collection Time Received Time (Source) / Laterality / Volume Swab ENTIRE NASOPHARYNX 02/07/2020 7:59 2019 / Unknown EDT 23:07 EDT Provider Outr Resulting Lab MICROBIOLOGY - GENERAL ORD ERABLES Performing Organization Address City/State/ZIP Code Phon e Number [facility] [place] COVID-19 TESTING (02/07/2020 7:59 EDT) Analysis Performed At [facility] Time Signature COVID-19 NEGATIVE Negative 02/08/2020 [facility] rt-PCR Result 17:47 EDT [facility] Comment: 2019-novel Coronavirus (2019-nCoV) not d etected by the qRT-PCR assay. Consider testing for other respiratory viruses or re-collecting for 2019-nCoV testing. Note: Optimum timing for peak viral levels du ring infections caused by 2019-nCoV have not been determined. Collection of multiple specimens from the same patient may be necessary to detect the virus. Limitations Positive results are indicative of activ e infection with SARS-CoV-2 but do not rule out bacterial infection or co-infection with other viruses. The agent detected may not be the definite cause of diseas e. In addition, detection of viral RNA m ay not indicate the presence of infectious virus or that SARS-CoV-2 is the causative agent for clinical symptoms. Negative results do not preclude SARS-Co V-2 infection and should not be used as the sole basis for patient management decisions. Negative results must be combined with clinical observations, patient his tory, and epidemiological information. F alse negative results may also occur if amplification inhibitors are present in the specimen or if inadequate numbers of organisms are present in the specimen. Op timum specimen types and timing for peak viral levels during infections caused by SARS-CoV-2 have not been fully determined. Collection of multiple specimens (types and time points) from the same patient may be necessary to detect the virus. The test was validated for use with uppe r respiratory specimens obtained via nasopharyngeal or oropharyngeal swabs in VTM, UTM, M4, M5, M6, saline, and MTM media. The performance of this test has not be en established for other specimens. Spec imens collected using other FDA recommended Specimen Collection Materials listed in the FDA COVID-19 [employer] communication (September 25, 2019) are pr ocessed with the caveat that they were n ot all validated for use with this test and the result must be interpreted in this context. Furthermore, a false negative results may occur if a specimen is improperly collected, transported or handled. If the virus mutates in the RT-PCR targe t region, SARS-CoV-2 may not be detected or may be detected less predictably. Inhibitors or other types of interferenc e may produce a false negative result. An interference study evaluating the effect of common cold medications was not performed. This test is not FDA-cleared but its per formance characteristics were established by our CLIA-certified, CAP-accredited, high complexity laboratory in accordance with CLIA regulations, College of Americ an Pathologists (CAP) guidelines (Aug), and FDA guidance (Aug 30, 2019). This test is only for use under the Food and Drug Administration's Emergency Use Authorization. Performing Lab [facility] 02/08/2020 17:4 7 EDT [facility] SERVICES Specimen Anatomical Collection Method Collection Time Receive d Time (Source) Location / / Volume Laterality Swab 02/07/2020 7:59 02/07/2020 EDT 23:07 EDT Provider Outr Resulting Lab MICROBIOLOGY - GENERAL ORD ERABLES Performing Organization Address City/State/ZIP Code Phon e Number [facility] [address] [place] [address] SERVICES [facility] [place], [place] documented in this encounter Visit Diagnoses Not on filedocumented in this encounter Care Teams Tank Truck Loader Relationship Specialty Start Date End Date Jennifer Gomez NP PCP - General 05/10/15 [facility] [address] [place], [place] [id number] documented as of this encounter
--- OUTSIDE RECORDS SUMMARY | 2022-05-09 11:13 | XMS_ITS | Encounter Summary ---
:1945 Author Organization [facility] [place] [address] Care Team Providers Name Role Phone France Lam MD Primary Care Provider Encounter Details Date Type Department Care Team Description 12/29/2019 Ancillary Procedure Radiology Library at Ivette Salas [facility] [place] [address] [place] [address] [phone] (Wo rk) Social History Tobacco Use Types Packs/Day Years Used Date Current Every Day Smoker Cigars 0.5 Sex Assigned at Date Recorded Not on file documented as of this encounter Plan of Treatment Upcoming Encounters Date Type Specialty Care Team Description 06/30/2022 Office Visit Endocrinology Alan Terrell MD [facility] ENDOCRINOLOGY [place], [place] [address] (Wo rk) documented as of this encounter Procedures Procedure [...] Time Received Time / Laterality Volume Narrative RAD - 01/08/2020 5:00 PM EDT This exam is auto-finalizing. It's purpo se is for storage only. Alfreda Salas APRN [facility] FILM LIBRARY ORDERABLES Performing Organization Address City/State/ZIP Code Phon e Number [facility] [place], [place] documented in this encounter Visit Diagnoses Not on filedocumented in this encounter Care Teams Commercial Property Manager Relationship Specialty Start Date End Date France Lam MD PCP - General 05/02/13 02/04/20 [address] [place] [address] documented as of this encounter
--- OUTSIDE RECORDS SUMMARY | 2022-05-09 11:13 | XMS_ITS | Encounter Summary ---
:1945 Author Organization [facility] [place] [address] Care Team Providers Name Role Phone France Lam MD Primary Care Provider Encounter Details Date Type Department Care Team Description 12/08/2019 Telephone Neurosurgery at [facility] [place] [address] Social History Tobacco Use Types Packs/Day Years Used Date Current Every Day Smoker Cigars 0.5 Sex Assigned at Date Recorded Not on file documented as of this encounter Miscellaneous Notes Telephone Encounter - Elza Bradshaw - 12/22/2019 6:[address] in e[facility] Telephone Encounter - Elza Bradshaw - 12/18/2019 3:43 PM EDT Left message at [facility] requesting they call back to advise if patient has been scheduled for CT. Telephone Encounter - Sarah Boucher - 12/08/2019 3:[address] order to [facility] to schedule, 12/16-12/18 for 12/22 TOV scheduled w/[facility] Telephone Encounter - Sarah Boucher - 12/08/2019 9:50 AM EDT RN, please put in CT order external=[place] Pt's called not able to come to [facility] on 12/[address] to have [address] locally at [facility] call w/results. documented in this encounter Plan of Treatment Upcoming Encounters Date Type Specialty Care Team Description 06/30/2022 Office Visit Endocrinology Alan Terrell MD [facility] ENDOCRINOLOGY [place], [place] [address] (Wo rk) documented as of this encounter Visit Diagnoses Not on filedocumented in this encounter Care Teams Manager Lighting Relationship Specialty Start Date End Date France Lam MD PCP - General 05/02/13 02/04/20 [address] [place] [address] documented as of this encounter
--- OUTSIDE RECORDS SUMMARY | 2022-05-09 11:13 | XMS_ITS | Clinical Summary ---
:1945 Author Organization [facility] [place] [address] Care Team Providers Name Role Phone Jovany Lott MD Primary Care Provider Allergies Active Allergy Reactions Severity Noted Date Comments Penicillins 05/13/2013 Pt doesn't gely mber reaction Cximirk-Vyy-Dqx Reductase 05/13/2013 St iff neck, upset stomach, [...] 12/05/2019 2:53 PM EDT Plan of Treatment Upcoming Encounters Date Type Specialty Care Team Description 06/30/2022 Office Visit Endocrinology EchtAlan MD [facility] ENDOCRINOLOGY [place], [place] [address] (Wo rk) Health Maintenance Due Date Last Done Comments [...] Time / Laterality Volume Narrative RAD - 03/11/2022 2:40 AM EDT This exam is auto-finalizing. It's purpo se is for storage only. Jovany Lott MD IMG FILM LIBRARY ORDERABLES Performing Organization Address City/State/ZIP Code Phon e Number [place], [place] from Last 3 Months Insurance Payer Benefit Plan / Subscriber ID Effective Dates Phone Addre ss Type Group MEDICARE MEDICARE PART [id number] 2019-Prese [phone] [place] [id number] [place] [id number] 2018-Presen [employer] [place] [id number] Advance Directives Latest Code Status on File [...] capacity to make decision: Yes Care Teams Attendant Sales Relationship Specialty Start Date End Date Jovany Lott MD PCP - General Family Medicine 02/05/20 [place] [address] (Qjtd)
--- OUTSIDE RECORDS SUMMARY | 2022-05-09 11:13 | XMS_ITS | Encounter Summary ---
:1945 Author Organization [facility] [place] [address] Care Team Providers Name Role Phone Jovany Lott MD Primary Care Provider Reason for Visit Consultation (Routine) - Closed Specialty Diagnoses / Procedures Referred By Contact Refer red To Contact Cardiology Diagnoses ST elevation (STEMI) myocardial infarction of unspecified site Hyperlipidemia, unspecified PeriDawit muhammad MD [place] [address] [place] [address] DR [facility] CARDIOLOGY D EPT [address] [place] [address] Fax: Referral ID Status Reason Start Date Expiration Date Visits V isits Requested Authorized [id number] Closed Consult, Test 02/10/2020 02/09/2021 [facility] PCP Updated and/or Approved Encounter Details Date Type Department Care Team Description 03/12/2020 TH Visit Cardiology at [facility] Melina Payan Fredrickson type IIa hyperli poproteinemia; (TeleHealth) [facility] Hyperglycemia; [facility] Elevated TSH; [facility] Hypothyroidism, acquired [address] CARDIOLOGY DEPT [phone] [place], [place] [address] Social History Tobacco Use Types Packs/Day Years Used Date Former Smoker Cigars 0.5 Quit: 11/29/19 20 Smokeless Tobacco: Former User Comments: Quit chew tobacco years and y ears ago Sex Assigned at Date Recorded Not on file documented as of this encounter Progress Notes Melina Payan MD - 03/12/2020 1:00 PM EDT [facility] [...] Social History: 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 [...] medications for this visit. Allergies Penicillins and Fqdluca-vpt-wtt reductase inhibitors Physical Exam not performed telehealth Assessment Jovany is a very high risk 75-year-old man who suffered a STEMI complicated by A. fib, cardiogenic shock, and a CVA. He has multiple cardiovascular risk factors including peripheral artery disease, hyperlipidemia (elevated LDL, depressed HDL), a 47-crud-dmba history of smoking, and prediabetes. Jovany quit [...] but Jovany replied: I can't drive to [employer] every 2 weeks for that. I explained [...] 06/30/2022 Office Visit Endocrinology Alan Terrell MD [facility] ENDOCRINOLOGY [place], [place] [address] (Wo rk) documented as of this encounter Visit Diagnoses Diagnosis Tiny type IIa hyperlipoproteinemi a Pure hypercholesterolemia Hyperglycemia Other abnormal glucose Elevated TSH Other abnormal blood chemistry Hypothyroidism, acquired Unspecified hypothyroidism documented in this encounter Care Teams Director Educational Radio Relationship Specialty Start Date End Date Jovany Lott MD PCP - General Family Medicine 02/05/20 [address] [place] [address] documented as of this encounter
--- OUTSIDE RECORDS SUMMARY | 2022-05-09 11:13 | XMS_ITS | Encounter Summary ---
:1945 Author Organization 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 S/P DESx3 in the gsikykin-gg-ruuija RCA. Aspiration thrombectomy performed, and integrellin bolus [...] with ICH, bilateral PE; paroxysmal atrial fibrillation [[id number]: 5]; PAD; HLD; HTN; smoking and PFO, who presents for post-discharge cardiovascular follow-up. CV issues are currently stable. Plan 1. CAD - CCS Class 0. Recovering well. He has completed 1 month of triple therapy. He may stop his aspirin, and resume clopidogrel and apixaban. Starting cardiac rehab. He wishes to [facility]. 2. Afib - CHADS2-vasc 5, presently [...] 6 months Faustino Garduno MD Time spent: [id number] 0-5min 6481LFS8 6-10min 2413AWI3 11-15min 4660MLI9 16-20min XXXX 6056YCH8 21-30min 6634LYU4 31-40min 3851FOV7 40+ min documented in this encounter Plan of Treatment Upcoming Encounters Date Type Specialty Care Team Description 06/30/2022 Office Visit Endocrinology Alan Terrell MD [facility] [address] [place] [address] (Wo rk) documented as of this [...] type documented in this encounter Care Teams Carbide Die Maker Relationship Specialty Start Date End Date France Lam MD PCP - General 05/02/13 02/04/20 [address] [place] [address] documented as of this encounter
--- OUTSIDE RECORDS SUMMARY | 2022-05-09 11:13 | XMS_ITS | Encounter Summary ---
:1945 Author Organization [facility] Address [facility] [place] [address] Care Team Providers Name Role Phone Jovany Lott MD Primary Care Provider Encounter Details Date Type Department Care Team Description 10/08/2020 Telephone Cardiology at [facility] Faustino Garduno MD [facility] [place] [address] [place] [address] [phone] (Wo rk) Social History Tobacco Use Types [...] with Dr. Chou, his provider via the [place] (see my prior clinic note). His case was reviewed by our Watchman (left atrial appendage closure team). He has anatomy that would be conducive to closure, should he wish to pursue this for stroke prevention and ability to be off anticoagulation usp. Left message for callback to our Structural Program (contact Willow Callejas APRN). If he is interested, I would be happy to offerscheduling for him. Faustino Garduno MD Pager [phone] documented in this encounter Plan of Treatment Upcoming Encounters Date Type Specialty Care Team Description 06/30/2022 Office Visit Endocrinology EchtAlan MD [facility] ENDOCRINOLOGY [place], [place] [address] (Wo rk) documented as of this encounter Visit Diagnoses Not on filedocumented in this encounter Care Teams Foreign Food Specialty Cook Relationship Specialty Start Date End Date Jovany Lott MD PCP - General Family Medicine 02/05/20 [address] [place] [address] documented as of this encounter
--- OUTSIDE RECORDS SUMMARY | 2022-05-09 11:13 | XMS_ITS | Encounter Summary ---
:1945 Author Organization [facility] Address [facility] [place] [address] Care Team Providers Name Role Phone Jovany Lott MD Primary Care Provider Encounter Details Date Type Department Care Team Description 10/05/2020 Notes Only Cardiology Merlin Sanchez MD [facility] [place] [address] CARDIOLOGY DEPT. [phone] [place], [place] [address] (Wo rk) Social History Tobacco [...] Description 06/30/2022 Office Visit Endocrinology EchtAlan MD [facility] ER [address] [place] [address] (Wo rk) documented as of this encounter Visit Diagnoses Not on filedocumented in this encounter Care Teams Sensor Specialist Relationship Specialty Start Date End Date Jovany Lott MD PCP - General Family Medicine 02/05/20 [address] [place] [address] documented as of this encounter
--- OUTSIDE RECORDS SUMMARY | 2022-05-09 11:13 | XMS_ITS | Encounter Summary ---
:[address] [facility] Address [address] [place] [address] Care Team Providers Name Role Phone Jennifer Gomez MICROFILM CLERK Primary Care Provider Encounter Details Date Type Department Care Team Description 12/22/2019 Lab Requisition [facility] Outr Resulting Lab, Pathology & Laboratory Provider [facility] [address] [place], [place] [id number] Social History Tobacco Use Types Packs/Day Years Used Date Smoking Tobacco: Never Assessed Sex Assigned at Date Recorded Not on file documented as of this encounter Plan of Treatment Not on filedocumented as of this encounter Procedures Procedure Name Priority Date/Time Associated Diagnosis Comme nts COVID-19 TEST [facility] Today 12/22/2019 10:38 LAB PCR EDT COVID-19 TESTING Routine 12/22/2019 10:38 Results for this EDT procedure are i n the results section. documented in this encounter Results COVID-19 TEST [facility] LAB PCR (12/22/2019 10:38 EDT) Specimen Anatomical Location Collection Method Collection Time Received Time (Source) / Laterality / Volume Swab ENTIRE NASOPHARYNX 12/22/2019 10:38 12/21 / Unknown EDT 16:05 EDT Provider Outr Resulting Lab MICROBIOLOGY - GENERAL ORD ERABLES Performing Organization Address City/State/ZIP Code Phon e Number [facility] [address] [place] [address] SERVICES COVID-19 TESTING (12/22/2019 10:38 EDT) Analysis Performed At Patho logist Time Signature COVID-19 Negative Negative 12/23/2019 [facility] rt-PCR Result 19:43 EDT CENTER LABORATORY SERVICES Comment: Negative results do not preclude 2019-nC oV infection and should not be used as the sole basis for treatment or other patient management decisions. Negative results must be combined with clinical observa tions, patient history, and epidemiologi álvaro information. This test was developed and its performa nce characteristics determined by [facility]. It has not been cleared or approved [...] testing. This test is based on the CDC COVID-19 E mergency Use Authorization (EUA) assay, with minor modification as defined by the FDA Performed on the [employer] [address] Fast. Performing Lab AB [address] [facility] Lab 12/23/2019 19:43 EDT [facility] SERVICES Specimen Anatomical Collection Method Collection Time Receive d Time (Source) Location / / Volume Laterality Swab 12/22/2019 10:38 12/22/2019 EDT 16:05 EDT Provider Outr Resulting Lab MICROBIOLOGY - GENERAL ORD ERABLES Performing Organization Address City/State/ZIP Code Phon e Number [facility] [address] [place] [address] SERVICES documented in this encounter Visit Diagnoses Not on filedocumented in this encounter Care Teams Computer Technology Teacher Relationship Specialty Start Date End Date Jennifer Gomez NP PCP - General 05/10/15 [facility] [address] [place], [place] [address] documented as of this encounter
--- OUTSIDE RECORDS SUMMARY | 2022-05-09 11:13 | XMS_ITS | Encounter Summary ---
:1945 Author Organization [facility] Address [address] [place] [address] Care Team Providers Name Role Phone Jennifer Gomez PNEUMATIC TUBE REPAIRER Primary Care Provider Encounter Details Date Type Department Care Team Description 03/19/2019 Hospital Encounter [facility] [place] Unknown, Provider, [facility] 0 [facility] [phone] [place] [address] (Work) [phone] Social History Tobacco Use Types Packs/Day Years Used Date Smoking Tobacco: Never Assessed Sex Assigned at Date Recorded Not on file documented as of this encounter Discharge Disposition Disposition Code Departure Means Destination Home or Self Long-Term documented in this encounter Plan of Treatment Not on filedocumented as of this encounter Visit Diagnoses Not on filedocumented in this encounter Care Teams Street Light Repairer Relationship Specialty Start Date End Date Jennifer Gomez, PNEUMATIC TUBE REPAIRER PCP - General 05/10/15 [facility] [address] [place], [place] [address] documented as of this encounter
--- OUTSIDE RECORDS SUMMARY | 2022-05-09 11:13 | XMS_ITS | Encounter Summary ---
:1945 Author Organization [facility] [place] [address] Care Team Providers Name Role Phone France Lam MD Primary Care Provider Reason for Visit Reason Onset Date Comments TeleHealth 01/12/2020 Encounter Details Date Type Department Care Team Description 01/12/2020 Telephone Neurosurgery at [facility] Alfreda Salas, TeleHealth [facility] [place] [address] [facility] [phone] [place], [place] [address] (Wo rk) Social History Tobacco [...] 06/30/2022 Office Visit Endocrinology Alan Terrell MD [facility] ER ENDOCRINOLOGY [place], [place] [address] (Wo rk) documented as of this encounter Visit Diagnoses Not on filedocumented in this encounter Care Teams Dentist Relationship Specialty Start Date End Date France Lam MD PCP - General 05/02/13 02/04/20 [address] [place] [address] documented as of this encounter
--- OUTSIDE RECORDS SUMMARY | 2022-05-09 11:13 | XMS_ITS | Encounter Summary ---
:1945 Author Organization [facility] Address [address] [place] [address] Care Team Providers Name Role Phone Unavailable Primary Care Provider Unavailable Encounter Details Date Type Department Care Team Description 09/02/2003 Results Only [facility] - Otis Patel MD conversion [address] [facility] [address] [place], [place] [address] [place] [address] (Wo rk) Social History Tobacco Use Types Packs/Day Years Used Date Smoking Tobacco: Never Assessed Sex Assigned at Date Recorded Not on file documented as of this encounter Plan of Treatment Not on filedocumented as of this encounter Procedures Procedure Name Priority Date/Time Associated Diagnosis Comme [facility] SURGICAL PATHOLOGY Routine 09/02/2003 0:00 EST Re sults for this procedure are i n the results section. documented in this encounter Results SURGICAL PATHOLOGY (09/02/2003 0:00 EST) Component Value Ref Test Analysis Performed At [facility] Method Time Signature Pathology SURGICAL PATHOLOGY REPORT ZAYNAB MARINELLI Report: Reports generated via electronic interface contain catherinea l data; MARLI MENDOZA however they are lacking the format of the original report. Caution should be taken when reading/interpreting unformatte d reports. Name: ? ANGEL LUIS SALINAS ? Accession #: ? [id number] ? : ? 1945 (Age: 58) ??M ? Collect Date: ? 09/02/2003 ? Location: ? [facility] ? Receive Date: ? 09/03/2003 ? Provider: OTIS MOSS MD Copy to: [...] moderate to severe degree of cytologic atypia. ??Given the degree of atypia, and extension of the lesion to the edge of the biopsy specimen, complete conservative excision of the lesion is recommended. ??(Dr. Jaz weller)/[email or web address] Microscopic Description: ? The epidermis is hype rplastic with elongate and anastomosing rete ridges. There is a compound prolifer ation of melanocytes with both epidermal and dermal components. ??The junctional melanocytes are arranged in nests and as individual cells. ??The nests predominate but vary to moderate degree in size, shape, and spacing. ??The nests are located between and the sides of re te ridges, in addition to at the tips [...] and cords of similar melanocytes that show airfield engineer officer maturation with descent. 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 ??(Dr. Mascorro)/[email or web address] Document reviewed and electronically signed by: Mai Mascorro MD Report ??Date: 09/04/2003 16:48 By the signature above, the attending physician certifies th at he/she has personally conducted a gross and/or microscopic examin ation of the described specimens and rendered or confirmed the above diagnosis. Specimen(s) Received: ? Atypical nevus ??low back [...] bisected and entirely submitted in one cassette. ??(Dr. Alejandro jacobsen)/[facility] End of Report Specimen (Source) Anatomical Collection Method Collection Time Re ceived Time Location / / Volume Laterality 09/02/2003 09/03/2003 15:2 7 EST Otis Moss MD PATHOLOGY ORDERABLES Performing Organization Address City/State/ZIP Code Phon e Number [facility] [address] [place] [address] SERVICES [facility] [address] [place] [phone] documented in this encounter Visit Diagnoses Not on filedocumented in this encounter
--- OUTSIDE RECORDS SUMMARY | 2022-05-09 11:13 | XMS_ITS | Encounter Summary ---
:1945 Author Organization [facility] [place] [address] Care Team Providers Name Role Phone France Lam MD Primary Care Provider Reason for Visit Reason Onset Date Comments TeleHealth 12/22/2019 Appt 12/23/19 Encounter Details Date Type Department Care Team Description 12/22/2019 Telephone Neurosurgery at [facility] Alfreda Salas TeleHealth (Appt [facility] Devin Sebastian, CELLULAR EQUIPMENT INSTALLER 12/23/19) [place] [address] [place] [address] [address] [place] [address] Social History Tobacco Use Types Packs/Day [...] 06/30/2022 Office Visit Endocrinology Alan Terrell MD [facility] ER ENDOCRINOLOGY [place] [address] (Wo rk) documented as of this encounter Visit Diagnoses Not on filedocumented in this encounter Care Teams Mechanical Detailer Relationship Specialty Start Date End Date France Lam MD PCP - General 05/02/13 02/04/20 [address] [place] [address] documented as of this encounter
--- OUTSIDE RECORDS SUMMARY | 2022-05-09 11:13 | XMS_ITS | Encounter Summary ---
:1945 Author Organization [facility] Address [facility] [place] [address] Care Team Providers Name Role Phone France Lam MD Primary Care Provider Encounter Details Date Type Department Care Team Description 12/22/2019 Telephone Cardiology Riki Stevens, [facility] [place] [address] [facility] [phone] GENERAL INTERNAL MEDICINE [place], [place] [address] (Wo rk) Social History Tobacco [...] Care Team Description 06/30/2022 Office Visit Endocrinology Echt, Alan Beatty MD [facility] ER DR [address] [place], [place] [address] (Wo rk) documented as of this encounter Visit Diagnoses Not on filedocumented in this encounter Care Teams Neuroscientist Relationship Specialty Start Date End Date France Lam MD PCP - General 05/02/13 02/04/20 [address] [place] [address] documented as of this encounter
--- OUTSIDE RECORDS SUMMARY | 2022-05-09 11:13 | XMS_ITS | Encounter Summary ---
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 [phone] [place] [address] Social History Tobacco Use Types Packs/Day Years [...] best is to differ this conversation until senior care OAC strategy has been set. Specifically, if this is being treated as a provoked dvt/pe, then would re-evaluate to coordinated with OAC discontinuation. I discussed the above findings with the patient and his both of whom appear to understand and is in agreement with the plan going forward. Merlin Sanchez M.D., F.A.C.C. trade economist Pager 2020 >50% of the 15 minute evaluation was spent in direct conversation/counselling documented in this encounter Plan of Treatment Upcoming Encounters Date Type Specialty Care Team Description 06/30/2022 Office Visit Endocrinology EchtAlan MD [facility] ENDOCRINOLOGY [place], [place] [address] (Wo rk) documented as of this encounter Visit Diagnoses Diagnosis Claudication from peripheral vascular di sease, left Peripheral vascular disease, unspecified Hyperlipidemia, unspecified hyperlipidem ia type Acute ST elevation myocardial infarction (STEMI) of inferior wall Acute systolic CHF (congestive heart reid lure), NYHA class 3, MILVIA/AHA stage C Acute systolic heart failure documented in this encounter Care Teams Qc Lab Technician Relationship Specialty Start Date End Date France Lam MD PCP - General 05/02/13 02/04/20 [address] [place] [address] documented as of this encounter
--- OUTSIDE RECORDS SUMMARY | 2022-05-09 11:13 | XMS_ITS | Encounter Summary ---
:1945 Author Organization [facility] Address [facility] [place] [address] Care Team Providers Name Role Phone France Lam MD Primary Care Provider Reason for Visit Reason Onset Date Comments TeleHealth 01/08/2020 Appt 01/09/20 Encounter Details Date Type Department Care Team Description 01/08/2020 Telephone Neurology at [facility] Efrain Nicole PA TeleHealth (Appt [facility] 12[address] [place] [address] NEUROLOGY [phone] [place], [place] [address] (Wo rk) Social History Tobacco [...] 06/30/2022 Office Visit Endocrinology Alan Terrell MD [facility] ER ENDOCRINOLOGY [place] [address] (Wo rk) documented as of this encounter Visit Diagnoses Not on filedocumented in this encounter Care Teams Mohs Surgeon/General Dermatologist Relationship Specialty Start Date End Date France Lam MD PCP - General 05/02/13 02/04/20 [address] [place] [address] documented as of this encounter
--- OUTSIDE RECORDS SUMMARY | 2022-05-09 11:13 | XMS_ITS | Encounter Summary ---
:1945 Author Organization [facility] Address [address] [place] [address] Care Team Providers Name Role Phone Unavailable Primary Care Provider Unavailable Encounter Details Date Type Department Care Team Description 09/15/2003 Results Only [facility] - Otis Patel MD conversion [address] [facility] [address] [place] [address] [place] [address] (Wo rk) Social History Tobacco Use Types Packs/Day Years Used Date Smoking Tobacco: Never Assessed Sex Assigned at Date Recorded Not on file documented as of this encounter Plan of Treatment Not on filedocumented as of this encounter Procedures Procedure Name Priority Date/Time Associated Diagnosis [facility] SURGICAL PATHOLOGY Routine 09/15/2003 0:00 EST Re sults for this procedure are i n the results section. documented in this encounter Results SURGICAL PATHOLOGY (09/15/2003 0:00 EST) Component Value Ref Test Analysis Performed At [facility] Method Time Signature Pathology SURGICAL PATHOLOGY REPORT ZAYNAB MARINELLI Report: Reports generated via electronic interface contain catherinea l data; MARLI MENDOZA however they are lacking the format of the original report. Caution should be taken when reading/interpreting unformatte d reports. Name: ? ANGEL LUIS SALINAS ? Accession #: ? [id number] ? : ? 1945 (Age: 58) ??M ? Collect Date: ? 09/15/2003 ? Location: ? [facility] ? Receive Date: ? 09/16/2003 ? Provider: OTIS MOSS MD Copy to: [facility] ? Final Pathologic Diagnosis: ? Skin of back, re-excision: 1. ?Cicatrix. 2. ?No residual atypical melanocytic nevus is i dentified. Document reviewed and electronically signed by: Johnathan Florez MD Report ??Date: 09/17/2003 16:41 By the signature above, the attending physician certifies th at he/she has personally conducted a gross and/or microscopic examin ation of the described specimens and rendered or confirmed the above diagnosis. Specimen(s) Received: ? Excision atypical nevus (previous [...] specimen is black inked, serially sectioned and submitted as follows: BLOCK CAM A1 ?Tips, reverse en face A2 ?Middle sections (Dr. Puga)/tmg ?? End of Report Specimen (Source) Anatomical Collection Method Collection Time Re ceived Time Location / / Volume Laterality 09/15/2003 09/16/2003 15:3 8 EST Otis Moss MD PATHOLOGY ORDERABLES Performing Organization Address City/State/ZIP Code Phon e Number [facility] [address] [place] [address] SERVICES [facility] [address] [place] [address] documented in this encounter Visit Diagnoses Not on filedocumented in this encounter
--- OUTSIDE RECORDS SUMMARY | 2022-05-09 11:14 | XMS_ITS | Encounter Summary ---
:1945 Author Organization [facility] [place] [address] Care Team Providers Name Role Phone France Lam MD Primary Care Provider Reason for Referral Consultation (Routine) - Specialty Diagnoses / Procedures Referred By Contact Refer red To Contact Cardiology Diagnoses Acute ST elevation myocardial infarction (STEMI) of inferior wall Darrell Glasgow MD [facility] [place] [address] Referral ID Status Reason Start Date Expiration Date Visits V isits Requested Authorized [id number] Consult, 12/08/2019 06/05/2020 1 1 Test & Treat Consultation (Routine) - Closed Specialty Diagnoses / Referred By Contact Referred To Contact Procedures Cardiac Rehabilitation Diagnoses ST elevation myocardial infarction involving right coronary artery Gretchen Yoon, Cardiac Rehab, [address] [place] [phone] Fax: Referral ID Status Reason Start Date Expiration Date Visits V isits Requested Authorized [id number] Closed Consult, 12/08/2019 06/05/2020 36 36 Test & Treat Reason for Visit Auth/Cert Specialty Diagnoses / Procedures Referred By Contact Refer red To Contact Diagnoses STEMI (ST elevation myocardial infarction) STEMI Procedures CARDIAC CATHETERIZATION Referral ID Status Reason Start Date Expiration Date Visits Requ ested Visits Authorized [id number] 1 1 Encounter Details Date Type Department Care Team Description 11/29/2019 - Hospital Encounter Cardiac Special YoungBarbra MD [facility] [place] [address] ST elevation myocardial infarction invol ving left main coronary artery; 12/08/2019 Care Unit Paris Lozano MD [facility] [place] [address] ST elevation myocardial infarction invol ving right coronary artery; [facility] Edema of upper extremity; Hospital Intracranial hemorrhage; [facility] Paroxysma l atrial fibrillation; Drive Acute pulmonary embolism, un specified pulmonary embolism type, unspecified whether acute cor pulmonale present; [place], [place] Acute ST elevat ion myocardial infarction (STEMI) of inferior wall [id number] Social History Tobacco Use Types Packs/Day Years [...] Luis Salinas Patient Age: 74 y.o. Language: Trinidadian Race: White Ethnicity: Not nor Admit date: [...] months on: antiplatelet therapy at discretion of lan engineer - Repeat TTE in 3 months to reassess LV function - Repeat BMP in 1-2 weeks given recent start lisinopril - Referred to lipid clinic for consideration of PCSK-9 inhibitor given STEMI with intolerance of statins - Started on amiodarone this admission for recurrent rapid atrial flutter with rates ~170, recommendcontinued assessment of necessity of rhythm control strategy with lan engineer - Amiodarone monitoring recommendations as below [...] please contact your inpatient physician through the [facility] . Issues after hours and on weekends [...] and Compazine. He was transferred directly to [facility] via [facility] for further management. Patient had an emergent PCI with 3 MACARIO stents placed to his RCA, with mild disease of LCX (report pending) at [facility]. He was found to be persistently hypotensive requiring Levo up to 10mcg/min. He was transferred to [facility] after the cath procedure. Bedside RHC showed CI 2.12, PAWP 11, PAP 38/15 indicating hypovolemic state. He received 1L bolus of NS with improvement of his blood pressure to 124/61. History of PAD, HLD - had side reactions to statins - so taking niacin and red rye grain. Chronic active smoker with more than 65 pack years. Family history of [place] in father and two uncles. He's takingbaby [...] drip as described above. On arrival at [facility] he was taken for cardiac cath where [...] number below. Electronically signed by: Estefani Harris [facility] ([phone]), at 11/29/2019 4:[address] Head wo Contrast (Generic) (Exam End: 11/30/2019 10:41 AM) Impression Focal hemorrhage with small amount of adjacent edema projecting in the region of the left optic tract. Thank you for letting us participate in the care of this patient. For questions regarding this report, please contact the number below. Electronically signed by: [facility] ([phone]), at 11/30/2019 12:[address] Head wo [...] below. Electronically signed by: Angel Luis [facility] ([phone]), at 11/30/2019 5:[address] Angiogram [place] (Exam End: 11/30/2019 4:36 PM) Impression Head CT: Stable hemorrhage in the region of the left optic tract. CTA: Negative exam. No abnormal vasculature in the area of hemorrhage. Thank you for letting us participate in the care of this patient. For questions regarding this report, please contact the number below. Electronically signed by: Angel Luis Barboza MD, [facility] ([phone]), at 11/30/2019 5:04 PM MRI Brain wo [...] Electronically signed by: Angel Luis Barboza MD, [facility] ([phone]), at 12/01/2019 8:02 PM XR Chest One [...] number below. Electronically signed by: Roselyn Luciano [facility] ([phone]), at 12/04/2019 6:16 PM MRI Brain wwo [...] ??? Penicillins Pt doesn't remember reaction ??? Dmatqqj-Mie-Pdw Reductase Inhibitors Stiff neck, upset stomach, back [...] medications at another hospital and then at [facility] you had a stent placed in a [...] FOR ONE MONTH AND THEN STOP. Your lan engineer may tell you to start this medication again after one year. Clopidogrel (Plavix) 75 mg daily - This medication will help prevent clots from forming in your blood, which will help protect the stent that was placed in your heart vessel. TAKE THIS FOR ONE YEAR ANDTHEN DISCUSS WITH YOUR TICKET MARKER WHETHER TO STOP. Amiodarone 400mg twice daily [...] follow up: Your primary care provider and lan engineer will manage your blood thinner (apixaban). You do not need lab monitoring of this medication. Diet: Please consume a healthy diet low in cholesterol Follow up Appointments: 12/10/2019 at 3:10PM with PCP Angel Luis Lott Future Appointments Date Time Provider Department Center 12/23/2019 1:30 PM Alfreda Salas APRN [address] 12/26/2019 9:40 AM Merlin Sanchez MD [facility] CARD 4A [facility] 12/30/2019 3:40 PM Gretchen Yoon MD [facility] 4A [facility] Future Appointments and Orders Future Appointments and Orders Future Appointments Provider Department Dept Phone 12/23/2019 1:30 PM Alfreda Salas APRN Neurosurgery at [facility] Arrive at: Home [phone] Please do not come in for this visit. Your provider will call you at the number you provided. 12/26/2019 9:40 AM Merlin Sanchez MD Cardiology at [facility] Arrive at: Home [phone] Please do not come in for this visit. Your provider will call you at the number you provided. 12/30/2019 3:40 PM Gretchen Yoon MD Cardiology at [facility] Arrive at: Home [phone] Please do not come in for this visit. Your provider will call you at the number you provided. Future Orders Complete By Expires Referral to Cardiac Rehab [SIA076 Custom] As directed Process Instructions: If no [...] Referral to Home Health - at DISCHARGE [INN7761 CPT(R)] As directed Process Instructions: Scheduling Instructions: Comments: DOCUMENTATION FOR VNA SERVICES PATIENT'S LOCATION: [address] [phone] (home) Mold Maker Helper's Name: Self In discussion with the attending physician, it is certified that this patient is under his/her care and that MD, or an DRUG CLERK, NIGHT BAKER, or PA who is working directly with him/her, had a lefr-lh-rolv encounter that meets the physician urdd-gb-rcrn encounter requirements with this patient on 12/07/2019. [...] CARE AGENCY: [facility], PHONE: [phone] FAX: [phone] Start of care: 24-48 hours after hospital [...] MD [address] / [place] [address] All A agencies which cover the area of patient's residence have been reviewed, either verbally or in writing, and patient/family have chosen the home health care agency noted. Questions: Agency name and contact information: [facility] Patient location post discharge: Home What services are requested: Registered Nurse Physical Therapy Occupational Therapy Start date: Responsible MD post discharge contact info: PCP Your PCP: France Lam MD [phone] For questions regarding this document or issues relating to this hospitalization on the Cardiology Service, please contact your inpatient physician through the [facility] . Issues after hours and on weekends will be handled by the Dark Room Attendant on-call. Patient Instructions: Neurology Your Diagnosis: Left [...] in the neurology clinic at [facility]. See below for the appointment time. [...] 1:30 PM Alfreda Salas APRN Neurosurgery at [facility] Arrive at: Home [phone] Please do not come in for this visit. Your provider will call you at the number you provided. 12/26/2019 9:40 AM Merlin Sanchez MD Cardiology at [facility] Arrive at: Home [phone] Please do not come in for this visit. Your provider will call you at the number you provided. 12/30/2019 3:40 PM Gretchen Yoon MD Cardiology at [facility] Arrive at: Home [phone] Please do not come in for this visit. Your provider will call you at the number you provided. Future Orders Complete By Expires Referral to Cardiac Rehab [[id number] Custom] As directed Process Instructions: If no [...] Referral to Home Health - at DISCHARGE [WMU0098 CPT(R)] As directed Process Instructions: Scheduling Instructions: Comments: DOCUMENTATION FOR VNA SERVICES PATIENT'S LOCATION: [address] [phone] (home) Mold Maker Helper's Name: Self In discussion with the attending physician, it is certified that this patient is under his/her care and that MD, or an DRUG CLERK, NIGHT BAKER, or PA who is working directly with him/her, had a wfdl-la-kwfg encounter that meets the physician sbfs-um-rcdd encounter requirements with this patient on 12/07/2019. [...] CARE AGENCY: [facility], PHONE: [phone] FAX: [phone] Start of care: 24-48 hours after hospital [...] [address] / [facility] [address] All A agencies which cover the area of patient's residence have been reviewed, either verbally or in writing, and patient/family have chosen the home health care agency noted. Questions: Agency name and contact information: [facility] Patient location post discharge: Home What services are requested: Registered Nurse Physical Therapy Occupational Therapy Start date: Responsible MD post discharge contact info: PCP Discharge References/Attachments Atrial Fibrillation (Trinidadian) Cardiac Rehabilitation (Trinidadian) Heart Failure (Trinidadian) Heart Failure: Limiting Sodium (Trinidadian) Hemorrhagic Stroke: General Info (Trinidadian) Smoking: Stopping (Trinidadian) Stroke Rehabilitation: General Info (Trinidadian) Pulmonary Embolism (Trinidadian) Riki Stevens MD PGY-3, Internal Medicine Cardiology S2, #[id number] Associated attestation - Paris Dodd MD - 12/09/2019 4:44 PM EDT Cardiology Attending Discharge Addendum I was the assigned attending lan engineer for this clinical encounter. For the [...] complications include novel onset, paroxysmal atrial fibrillation [[id number]: 5] & L-sided diplopia with potential hemineglect [...] My contact information: Paris Matt MD MPH [place] [phone] (office); Pager #[phone] Email: [email or web address] documented in this encounter Discharge Instructions Patient InstructionsFiRiki de jesus MD - 12/02/2019 9:56 AM EDT Images from the original note were not included. Why you were hospitalized: You had a heart attack. You received clot-busting medications at another hospital and then at [facility] you had a stent placed in a [...] FOR ONE MONTH AND THEN STOP. Your lan engineer may tell you to start this medication again after one year. Clopidogrel (Plavix) 75 mg daily - This medication will help prevent clots from forming in your blood, which will help protect the stent that was placed in your heart vessel. TAKE THIS FOR ONE YEAR ANDTHEN DISCUSS WITH YOUR TICKET MARKER WHETHER TO STOP. Amiodarone 400mg twice daily [...] follow up: Your primary care provider and lan engineer will manage your blood thinner (apixaban). You do not need lab monitoring of this medication. Diet: Please consume a healthy diet low in cholesterol Follow up Appointments: 12/10/2019 at 3:10PM with PCP Angel Luis Lott Future Appointments Date Time Provider Department Center 12/23/2019 1:30 PM Alfreda Salas APRN [facility] [id number] [facility] 12/26/2019 9:40 AM Merlin Sanchez MD [facility] CARD 4A [facility] 12/30/2019 3:40 PM Gretchen Yoon MD [facility] CARD 4A [facility] Future Appointments and Orders Future Appointments and Orders Future Appointments Provider Department Dept Phone 12/23/2019 1:30 PM Alfreda Salas APRN Neurosurgery at [facility] Arrive at: Home [phone] Please do not come in for this visit. Your provider will call you at the number you provided. 12/26/2019 9:40 AM Merlin Sanchez MD Cardiology at [facility] Arrive at: Home [phone] Please do not come in for this visit. Your provider will call you at the number you provided. 12/30/2019 3:40 PM Gretchen Yoon MD Cardiology at [facility] Arrive at: Home [phone] Please do not come in for this visit. Your provider will call you at the number you provided. Future Orders Complete By Expires Referral to Cardiac Rehab [[id number] Custom] As directed Process Instructions: If no [...] Referral to Home Health - at DISCHARGE [CTY6506 CPT(R)] As directed Process Instructions: Scheduling Instructions: Comments: DOCUMENTATION FOR VNA SERVICES PATIENT'S LOCATION: [address] [phone] (home) Mold Maker Helper's Name: Self In discussion with the attending physician, it is certified that this patient is under his/her care and that MD, or an DRUG CLERK, NIGHT BAKER, or PA who is working directly with him/her, had a fdpa-kr-ggif encounter that meets the physician yonz-xa-xkgv encounter requirements with this patient on 12/07/2019. [...] CARE AGENCY: [facility], PHONE: [phone] FAX: [phone] Start of care: 24-48 hours after hospital [...] MD [address] / [place] [address] All A agencies which cover the area of patient's residence have been reviewed, either verbally or in writing, and patient/family have chosen the home health care agency noted. Questions: Agency name and contact information: [facility] Patient location post discharge: Home What services are requested: Registered Nurse Physical Therapy Occupational Therapy Start date: Responsible MD post discharge contact info: PCP Your PCP: France Lam MD [phone] For questions regarding this document or issues relating to this hospitalization on the Cardiology Service, please contact your inpatient physician through the [facility] [employer] . Issues after hours and on weekends will be handled by the Dark Room Attendant on-call. Patient Instructions: Neurology Your Diagnosis: Left [...] in the neurology clinic at [facility]. See below for the appointment time. If you do not have an appointment, you will be called with a time/date for this appointment. ??? Primary Care Provider: Please follow up with your Primary Care Provider within one to 2 weeks ofdischarge. AttachmentsThe following attachments cannot be sent through Care Everywhere. Atrial Fibrillation (Trinidadian)Cardiac Rehabilitation (Trinidadian)Heart Failure (Trinidadian)Heart Failure: Limiting Sodium (Trinidadian)Hemorrhagic Stroke: General Info (Trinidadian)Smoking: Stopping (Trinidadian)Stroke Rehabilitation: General Info (Trinidadian)Pulmonary Embolism (Trinidadian)documented in this encounter Medications at Time of [...] consulted in the interim. Vikash Rodriguez Pager: [phone] Paris Dodd MD - 12/08/2019 8:57 AM [...] complications include novel onset, paroxysmal atrial fibrillation [LHE5FE1QZUS: 5] & L-sided diplopia with potential hemineglect [...] consulted in the interim. Vikash Rodriguez Pager: [phone] Paris Dodd MD - 12/07/2019 9:55 AM [...] complications include novel onset, paroxysmal atrial fibrillation [BRT8ZJ1LJLJ: 5] & L-sided diplopia with potential hemineglect [...] complications include novel onset, paroxysmal atrial fibrillation [APR4UD7EAAD: 5] & L-sided diplopia with potential hemineglect [...] complications include novel onset, paroxysmal atrial fibrillation [BYC6RM8FXIC: 5] & L-sided diplopia with potential hemineglect [...] today; additional complications include paroxysmal atrial fibrillation [EAH0AL0MKTU: 4] c/b possible cardioembolic stroke, ICH from [...] length from neck/greatest diameter to back wall: INDONESIAN 91, CAU 13: 19 mm CORTES 1, [...] a non-culprit artery. S/P DESx3 in the hjzqdbnc-bh-vqoefg RCA. Aspiration thrombectomy performed, and integrellin bolus [...] complications include novel onset, paroxysmal atrial fibrillation [BFS1RD0UQWH: 5] & L-sided diplopia with potential hemineglect [...] R occipital cardioembolic stroke #Paroxysmal Afib with [id number] score of 5 #New segmental bilateral PEs [...] Glasgow MD PGY1, Internal Medicine Cardiology S2, #4469 Associated attestation - Paris Dodd MD - 12/05/2019 2:59 PM EDT I was the assigned attending lan engineer for this clinical encounter. For the [...] 12/04/2019 10:36 AM EDT Office of Care Management(OCM)/Maid Supervisor(CM)/Discharge Planning Service: Cardiology S2 team CM Bernie Alexander,RN,BSN,MA,ACM pgr [phone] Reviewed record and in Cardiology Rounds with MD team,CMs, elevator mechanic, TOUR OPERATOR. Pt is anticipated ready for d/c later today. Met w pt re d/c plan and he continues to agree with home PT/OT/RN w [facility]. His son is bringing his to pick him up together. Discussed Advance Directives and DPOAH- he states he has at home and designated his as primiary; he thought his PCP would have copy. Tel call to PCP who notes no DPOAH on file. Encouraged pt to take his AD to his PCP and to any [facility] appt for each to have on file. [...] complications include novel onset, paroxysmal atrial fibrillation [FTM9AS1XHTQ: 4] & L-sided diplopia with potential hemineglect [...] a non-culprit artery. S/P DESx3 in the vroruvtf-qp-wpiwsg RCA. Aspiration thrombectomy performed, and integrellin bolus [...] complications include novel onset, paroxysmal atrial fibrillation [FEM5JC3OTUM: 5] & L-sided diplopia with potential hemineglect [...] R occipital cardioembolic stroke #Paroxysmal Afib with RS7LFCUF3Y score of 5 - No anticoagulation for [...] Glasgow MD PGY1, Internal Medicine Cardiology S2, #8164 I have seen the patient and reviewed [...] in my clinic. Gretchen Yoon MD Pager [phone] Derian Pascual RN - 12/03/2019 9:29 AM [...] Discharge: None Electronically signed: Derian Pascual RN, Maid Supervisor Pgr: [phone] 12/03/2019 9:29 AM Gretchen [...] complications include novel onset, paroxysmal atrial fibrillation [TMV2CN8UVZG: 4] & L-sided diplopia with potential hemineglect [...] a non-culprit artery. S/P DESx3 in the sjnqclic-um-xmpdrn RCA. Aspiration thrombectomy performed, and integrellin bolus [...] complications include novel onset, paroxysmal atrial fibrillation [FFR8KV1BHXM: 5] & L-sided diplopia with potential hemineglect [...] would [facility] and follow up with his PCP. Patient voiced strong will to quit smoking now, understood that we have resources available for help. Plan [P]: --Neurologic-- # Concern for Left-Sided Diplopia, r/o Hemineglect # Concern for CVA, last-known well 11/29/19 - MRI showed possible cardioembolic stroke #Afib with ZU8PBPZH5T score of 5 - Stroke Team Consulted; [...] Anticoagulation/Arrhythmia # Novel Onset, Paroxsymal Atrial Fibrillation [BKR0EH4YBVW: 5] - Hold off anticoagulation for at [...] w straight cath prn # Nutrition - [facility] Diet, 2g Na. -- Hematology/Oncology-- # Mild [...] Glasgow MD PGY1, Internal Medicine Cardiology S2, #8463 I have seen the patient and reviewed the resident's above history and I agree with the details as written. The assessment and plan were formulated in discussion with me and I agree with them as documented. Gretchen Yoon MD Pager [phone] Raul Hein RN - 12/03/2019 5:55 AM [...] Negative mcL Appearance UA Clear Clear Spec [place] UA 1.026 1.006 - 1.030 Color UA [...] PGY3 Neurology Resident 12/01/2019 Vascular Neurology Pager [phone] Neurology Attending Attestation I evaluated the patient [...] documented. Deepthi Roman MD Vascular Neurology Standard [facility] Swallow Screen: This screen is to be [...] diet as medical provider deems appropriate. Consider AGRICULTURE MECHANIC consult for full evaluation and diet recommendations. [...] complications include novel onset, paroxysmal atrial fibrillation [XTC8IW2ENZM: 4] & L-sided diplopia with potential hemineglect [...] a non-culprit artery. S/P DESx3 in the djxlpvzx-xi-mawtew RCA. Aspiration thrombectomy performed, and integrellin bolus [...] complications include novel onset, paroxysmal atrial fibrillation [VCI8IT8SAIA: 5] & L-sided diplopia with potential hemineglect [...] RCA; non-MIRTHA LCx; s/p lytics] # STEMI [LEYAL: 187, DILLON: 7, Killip: 4] - Continue: [...] Anticoagulation/Arrhythmia # Novel Onset, Paroxsymal Atrial Fibrillation [KDP8HN4ANDA: 5] - Hold off anticoagulation - pending [...] tamsulosin d/t low BP. # Nutrition - [facility] Diet -- Hematology/Oncology-- # Mild Thrombocytopenia, unclear [...] Glasgow MD PGY1, Internal Medicine Cardiology S2, #9733 I have seen the patient and reviewed [...] the ICU team. Gretchen Yoon MD Pager [phone] Natalia Claros APRN - 12/02/2019 8:38 AM [...] - We are signing off. Please page [phone] with any questions or concerns. For questions please call NS pager [phone] Natalia Claros APRN 12/02/2019 8:38 AM Clinical Documentation Improvement: Active Hospital Problems Diagnosis ??? Acute ST elevation myocardial infarction (STEMI) of inferior wall ??? Intracranial hemorrhage ??? Hyperlipidemia ??? Tobacco abuse ??? Claudication from peripheral vascular disease, left Resolved Hospital Problems No resolved problems to display. Tello Hsu, PARKING PATROLLER - 12/02/2019 2:06 AM EDT 06/01/20 2010 [...] Scan in afternoon. Upon arrival back in [facility] placed on low flow NC at [...] complications include novel onset, paroxysmal atrial fibrillation [RAC3LT2APIO: 4] & L-sided diplopia with potential hemineglect for which CVA evaluationto be pursued. Active Problems/Subjective: - 11/28: admitted for inferior STEMI, RV failure requiring pressor - got lytics, aspirin and plavix load, heparin gtt, and eptifibatide. 3 MACARIO stents to RCA. [place] cath - low wedge & CVP so [...] a non-culprit artery. S/P DESx3 in the elkgfyen-em-nrptga RCA. Aspiration thrombectomy performed, and integrellin bolus [...] complications include novel onset, paroxysmal atrial fibrillation [IVY8GC5MUXY: 4] & L-sided diplopia with potential hemineglect [...] Anticoagulation/Arrhythmia # Novel Onset, Paroxsymal Atrial Fibrillation [[id number]: 4] - Obtain: TTE - Pending CVA [...] tamsulosin d/t low BP. # Nutrition - [facility] Diet -- Hematology/Oncology-- # Mild Thrombocytopenia, unclear [...] MD, PGY1 PGY3, Internal Medicine Cardiology S2, #[id number] I have seen the patient and reviewed [...] down the line. Gretchen Yoon MD Pager [phone] ?? Gretchen Yoon MD Pager [phone] Natalia Claros APRN - 12/01/2019 1:33 AM [...] per primary team For questions please call [employer] pager [phone] Natalia Claros APRN 12/01/2019 7:42 AM Clinical Documentation Improvement: Active Hospital Problems Diagnosis ??? Acute ST elevation myocardial infarction (STEMI) of inferior wall ??? Intracranial hemorrhage ??? Hyperlipidemia ??? Tobacco abuse ??? Claudication from peripheral vascular disease, left Resolved Hospital Problems No resolved problems to display. Tello Hsu, PARKING PATROLLER - 11/30/2019 8:44 PM EDT Respiratory Therapy [...] EDT Narrative:Visited in response to request for Balance Wheel Screw Hole Tapper services. Pt was awake, alert, oriented and in bed. Assessment:Patient coping positively with stresses of illness/hospitalization at this time. Pt says that he is hoping to get better and pt is living with and has children and grandchildren. Pt haspurpose of life and has reason to get getter and to be with family. Outcome: Provided emotional and spiritual support and encouraging presence. Balance Wheel Screw Hole Tapper services accepted.Conversation to build trusting relationship.Provided pastoral [...] complications include novel onset, paroxysmal atrial fibrillation [[id number]: 4] & L-sided diplopia with potential hemineglect for which CVA evaluationto be pursued. Active Problems/Subjective: - Overnight, CVP < 12 for which a total of 1 L IVF provided - Today AM, patient complains of subjectively reported, left-sided hemineglect with floaters and diplopia [see: exam]. - Otherwise, c/o neck pain 2/2 R IJ [place] & L radial A line. Otherwise, denies [...] a non-culprit artery. S/P DESx3 in the tyqykuhg-lt-roaftj RCA. Aspiration thrombectomy performed, and integrellin bolus [...] complications include novel onset, paroxysmal atrial fibrillation [[id number]: 4] & L-sided diplopia with potential hemineglect [...] Anticoagulation/Arrhythmia # Novel Onset, Paroxsymal Atrial Fibrillation [[id number]: 4] - Obtain: TTE to confirm rhythm [...] tamsulosin d/t low BP. # Nutrition - [facility] Diet -- Hematology/Oncology-- # Mild Thrombocytopenia, unclear [...] MD, PGY3 PGY3, Internal Medicine Cardiology S2, #[id number] I have seen the patient and reviewed [...] down the line. Gretchen Yoon MD Pager [phone] Paola Capps RN - 11/30/2019 6:57 AM EDT PT still requiring 4 of levo, several attempts to titrate down (maps in 70;s) But maps would drop toless than 65. Pt very restless in bed Raising and lowering head denies pain . Integrillin stopped [id number] when bottle complete , urine tea colored [...] PCP: France Lam MD PCP phone #: [phone] Lmft: None ID/Chief Complaint: Chest pain History of [...] and Compazine. He was transferred directly to [facility] via [facility] for further management. Patient had an emergent PCI with 3 MACARIO stents placed to his RCA, with mild disease of LCX (report pending) at [facility]. He was found to be persistently hypotensive requiring Levo up to 10mcg/min. He was transferred to [facility] after the cath procedure. Bedside RHC showed CI 2.12, PAWP 11, PAP 38/15 indicating hypovolemic state. He received 1L bolus of NS with improvement of his blood pressure to 124/61. History of PAD, HLD - had side reactions to statins - so taking niacin and red rye grain. Chronic active smoker with more than 65 pack years. Family history of RI in father and two uncles. He's takingbaby [...] ??? Penicillins Pt doesn't remember reaction ??? Rhgjsmn-Pfx-Hcr Reductase Inhibitors Stiff neck, upset stomach, back pain Family History: Mother: Father: RI 2 Uncles with MIs Social History: Tobacco: Current active smoker 1 ppd. 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 Vitals: Last value Range last [...] in the last 7068 hours. Invalid input(s): [id number] Heme: No results for input(s): LDH, HAPTOGLOBIN, [...] OSH prior to transfer and PCI at [facility]. Massive inferior STEMI with troponin level 20, currently in CVCC due to pressor requirement. BedsideRHC demonstrated evidence of elevated right sided heart failure, but his wedge was wnl. He received 1L bolus with improvement of his blood pressure and reduction of his pressor requirement. PLAN: Admit to Cardiology, S2 Team Pager # [phone] #Inferior STEMI, LEYLA 149 - Resolving EKG [...] inferior STEMI s/p lytic therapy. Transferred to [facility] and underwent successful PCI of the RCA with MACARIO x3. Gretchen Yoon MD Pager [phone] documented in this encounter Procedure Notes Juventino [...] to the planned procedure. Hand Hygiene: The punchboard inserter did perform hand hygiene prior to [...] a suspected line-associated infection. Location of Procedure: [facility] Risks and Benefits: The risks and [...] to the planned procedure. Hand Hygiene: The punchboard inserter did perform hand hygiene prior to [...] side:right An Introducer (PSI Kit) was used. [place]. Insertion Side: right. Insertion Site: internal jugular. Catheter Details: Number of Lumens: 1 Catheter Type: heparin-coated The line was placed over a guidewire. Confirmation of Venous Placement: Venous placement was confirmed by transducing the pressure. Introducer Insertion Attempts: 1 Comments: Floating the [place] Catheter Attempts: 1 Comments: Sterile Dressing: Biopatch [...] better pt back in SR. Please page [phone] for any more cares or concerns Plan [...] complications include novel onset, paroxysmal atrial fibrillation [[id number]: 5]& L-sided diplopia with potential hemineglect for [...] Total Evaluation Minutes, Occupational Therapy: 10 Pager: [phone] FRANCINE Nuñez Occupational Therapy Rehabilitation Department Plan [...] complications include novel onset, paroxysmal atrial fibrillation [[id number]: 5] & L-sided diplopia with potential hemineglect [...] hand rails). Baseline Mobility: Independent. Drives. 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 Time IN / OUT: 9744-1454 Total Evaluation Minutes, Physical Therapy: 15(gtx1) Barbara Baldwin, PT Pager: [phone] Physical Therapy Inpatient Rehabilitation Department Plan of [...] he receives all he needs through the [facility]. Consult refused. Romain Tran, MSN, RN-, [facility] Tobacco Presentation Manager [facility] Pager #[phone] Plan of Care - Romain Oglesby OT [...] complications include novel onset, paroxysmal atrial fibrillation [UNR0HJ4PUCC: 5] & L-sided diplopia with potential hemineglect [...] and measurable assessment of functional outcome. Pager: [phone] ROMAIN OGLESBY OT 12/03/2019 Occupational Therapy Rehabilitation [...] complications include novel onset, paroxysmal atrial fibrillation [[id number]: 5] & L-sided diplopia with potential hemineglect [...] hand rails). Baseline Mobility: Independent. Drives. 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 Time IN / OUT: 3663-3486 Total Evaluation Minutes, Physical Therapy: 25(eval, gtx1) Barbara Baldwin, PT Pager: [phone] Physical Therapy Inpatient Rehabilitation Department Consult Note - Johnana Nobles RN - 12/02/2019 12:49 PM EDT [...] 31.2 (L) 12/01/2019 Nutritional Intake Current bed: [facility] Assessment: Patient is with an area [...] Please contact JOHANNA NOBLES RN on pager [phone] or the wound care team at [phone] or pager [phone] skin and wound care concerns or questions. [...] making law. Any patient receiving carspousee at [facility] must abide by [place] law. The hierarchy [...] (i) The agent with financial power of district resource officer or a conservator appointed in accordance [...] Insurance: N/A Prescription Coverage: Yes Preferred Pharmacy: [place], [place] Other: No Primary Care Provider: France Lam MD [phone] Patient/Caregiver Goals of Treatment: Return home Potential Needs for Transition of Care: Rehab/SNF: Based on discussions with the multi-disciplinary healthcare team, the patient would benefit from SNF level of care at discharge. ?? I have met with the patient to discuss discharge planning needs. I have provided the [facility], Officeof Care Management letter from the [employer] pertaining to rehab referrals. I have also provided a letter describing our affiliations within the [facility] and educated them about [...] 1. [facility] [address] [place] [phone] ?? [address]. [address] [place] [address] Note routed to Coping Machine Assembler who will communicate referrals to facilities and provide any required information. Home Health: If therapies recommend home w/ VNA, the patient has been provided a list of Home Health Agencies/DME vendors which serve their preferred geographic area. A letter describing our affiliations was reviewed with them and they were educated about their right to choose where referrals are placed. Patient requests referral to [facility]. PHONE: [phone] FAX: [phone] Referral routed to the Coping Machine Assembler for matching with agency/vendor and to provide [...] Insured w/ Medicare. Gets medications filled at [facility] in [place], [place]. Son to transport at discharge Plan: Discharge dispo depending on patient's physical recovery; SNF vs home w/ VNA. A member of the Care Management team will continue to monitor progress, follow for continuity of care and assist with transition of care planning. Derian Pascual, NIURKA Pager: [phone] Plan of Care - Estefani Baeza RN [...] ??? Penicillins Pt doesn't remember reaction ??? Uagyfhf-Wsk-Kgs Reductase Inhibitors Stiff neck, upset stomach, back [...] noncontrast head CT and CT of [place] at 1600 hrs. We will [...] vision concerning for stroke. Patient presented to [facility] in transfer for a STEMI after presenting [...] ??? Penicillins Pt doesn't remember reaction ??? Zmzkrlv-Dkt-Bos Reductase Inhibitors Stiff neck, upset stomach, back [...] file Gets together: Not on file Attends sabianist service: Not on file Active member of [...] L Elbow flexion 5/5 R, 5/5 L Kitchen Steward LE: 5/5 R, 5/5 L Hip flexion [...] PGY3 Neurology Resident 11/30/2019 Vascular Neurology Pager [phone] Standard [facility] Swallow Screen: This screen is to be [...] diet as medical provider deems appropriate. Consider AGRICULTURE MECHANIC consult for full evaluation and diet recommendations. [...] Afib admitted s/p thrombolysis and Cath-Stent to [facility] who developed R sided [...] MD Department of Neurology [facility] Brief Op Note - Gretchen Yoon MD - 11/29/2019 8:38 PM EDT Brief Operative Note Patient Name: Angel Luis Salinas : [id number] MR#: [id number] Case Date: 11/29/2019 Surgeon: Surgeon(s) and Role: * Gretchen Yoon MD - Primary * Aidan Ward MD - Fellow Preoperative diagnosis: Inferior STEMI Postoperative diagnosis: Inferior STEMI Procedure(s) (LRB): CARDIAC CATHETERIZATION (N/A) Findings: Discrete 90% stenosis in the prox-to-mid RCA. Severe diffuse disease in the distal vessel. Discrete LCX stenosis in a non-culprit artery. S/P DESx3 in the wacekbnu-pz-bmixly RCA. Aspiration thrombectomy performed, and integrellin bolus x2+ infusion. Nicardipine given during case due to intermittent sluggish flow. Complications: None documented in this encounter Plan of Treatment Upcoming Encounters Date Type Specialty Care Team Description 06/30/2022 Office Visit Endocrinology Alan Terrell MD [facility] [address] ENDOCRINOLOGY [place], [place] [address] (Wo rk) Scheduled Referrals Name Type Priority Associated Order [...] are i n the results section. CT [place] W STAT 11/30/2019 4:36 Res [...] athologist Signature Potassium 3.9 3.5 - 5.0 [facility] [employer] mmol/L [facility] Comment: Please note: ??Patients with [...] Organization Address City/State/[place] [address] (ABNORMAL) Hemogram (12/08/2019 12:39 PM EDT) Analysis Performed At Patho logist Time Signature WBC 9.9 (H) 4.0 - 9.5 [place] DOV x10(3)/[facility] LABORATORY RBC 4.51 (L) 4.58 - [facility] 5.54 [facility] x10(6)/[facility] LABORATORY Hemoglobin 13.0 (L) 13.7 - [place] DOV 16.5 gm/dL [facility] Hematocrit 40.5 40.5 - [facility] 48.5 % [facility] MCV 89.8 82.9 - [place] D[place] 93.1 [facility] LABORATORY MCH 28.8 27.5 - [facility] 32.1 pg [facility] MCHC 32.1 32.0 - [facility] 35.7 gm/dL [facility] Platelets 214 145 - 357 [place] [employer] x10(3)/[facility] LABORATORY RDWSD 49.2 (H) 36.0 - [facility] 45.0 [facility] LABORATORY RDWCV 15.1 (H) 11.4 - [facility] 13.8 % [facility] MPV 12.1 7.6 - 12.9 [place] [employer] [facility] LABORATORY nRBC % Auto 0.0 % [facility] nRBC Abs Auto 0.000 0.000 - [place] DOV 0.000 [facility] x10(3)/[facility] LABORATORY Specimen Anatomical Collection Method Collection Time Receive d Time (Source) Location / / Volume Laterality Blood specimen 12/08/2019 12:39 0 (specimen) PM EDT 12:47 PM EDT Resulting Agency Comment Spec In Lab Gretchen Yoon MD HEMATOLOGY ORDERABLES Performing Organization Address City/[facility]/ZIP Code Phon e Number [address] Hepatic Function Panel (12/08/2019 6:28 AM EDT) athologist Signature Total Protein 6.6 6.1 - 8.0 [facility] DOV gm/dL [facility] Albumin 3.2 3.2 - 5.2 [facility] DOV gm/dL [facility] AST 18 0 - 39 [facility]L [facility] ALT 13 0 - 55 [facility] DOV unit/L [facility] Alk Phos 64 40 - 130 [facility] unit/L [facility] Total 0.4 0.2 - 1.3 [place] D[facility] Bilirubin mg/dL [facility] Bili, Direct 0.1 0.0 - 0.3 [facility] DOV mg/dL [facility] Specimen Anatomical Collection Method Collection Time Receive d Time (Source) Location / / Volume Laterality Blood specimen Venous Draw / 12/08/2019 6:28 AM 2019 6:36 (specimen) Unknown EDT AM EDT Resulting Agency Comment Spec In Lab Riki Stevens MD CHEMISTRY ORDERABLES Performing Organization Address City/[facility]/ZIP Code Phon e Number [address] (ABNORMAL) TSH (12/08/2019 6:28 AM EDT) athologist Signature TSH 5.27 (H) 0.27 - 4.20 [place] D[facility] mcIU/mL [facility] Specimen Anatomical Collection Method Collection Time Receive d Time (Source) Location / / Volume Laterality Blood specimen Venous Draw / 12/08/2019 6:28 AM 2019 6:36 (specimen) Unknown EDT AM EDT Resulting Agency Comment Spec In Lab Darrell Glasgow MD CHEMISTRY ORDERABLES Performing Organization Address City/[facility]/ZIP Code Phon e Number [address] Potassium (12/08/2019 6:28 AM EDT) P athologist Signature Potassium 4.2 3.5 - 5.0 [facility] mmol/L [facility] Comment: Please note: ??Patients with [...] Lagos MD CHEMISTRY ORDERABLES Performing Organization Address City/[facility]/[place] [address] (ABNORMAL) Differential, Automated (12/08/2019 12:43 AM EDT) Patholo gist Method Time Signature Neutrophils % 60.7 % [facility] Neutr Abs (ANC) 6.81 (H) 1.70 - [facility] 6.10 [facility] x10(3)/[facility] LABORATORY Lymphocytes % 23.4 % [facility] Lymphocytes Abs 2.6 0.9 - 3.2 [facility] x10(3)/[facility] LABORATORY Monocytes % 10.0 % [facility] Monocyte Abs 1.1 (H) 0.3 - 0.9 [facility] x10(3)/[facility] LABORATORY Eosinophils % 3.7 % [facility] Eosinophils Abs 0.4 0.0 - 0.4 [facility] x10(3)/[facility] LABORATORY Basophils % 1.2 % [facility] Basophils Abs 0.1 0.0 - 0.1 [facility] x10(3)/[facility] LABORATORY Immature Gran % 1.00 % [facility] Comment: Immature granulocytes(IG's)percentage an d absolute count will include metamyelocytes, myelocytes, and promyelo cytes. Blood smears from CBCs yielding IG's will be scanned manually for concor dandirk. If this scan disagrees with the automated IG or if promyelocytes are not ed, a manual differential will be performed. Pita Gran Abs 0.11 (H) 0.00 - 0.04 x10(3)/[facility] LABORATORY Specimen Anatomical Collection Method Collection Time Receive d Time (Source) Location / / Volume Laterality Blood specimen 12/08/2019 12:43 0 (specimen) AM EDT 12:52 AM EDT Resulting Agency Comment Spec In Lab Riki Stevens MD HEMATOLOGY ORDERABLES Performing Organization Address City/State/[place] [address] (ABNORMAL) Hemogram (12/08/2019 12:43 AM EDT) Analysis Performed At Patho logist Time Signature WBC 11.2 (H) 4.0 - 9.5 [facility] x10(3)/[facility] LABORATORY RBC 4.46 (L) 4.58 - [facility] 5.54 [facility] x10(6)/[facility] LABORATORY Hemoglobin 13.1 (L) 13.7 - [facility] 16.5 gm/dL [facility] Hematocrit 40.5 40.5 - [facility] 48.5 % [facility] MCV 90.8 82.9 - [facility] 93.1 [facility] LABORATORY MCH 29.4 27.5 - [place] DOV 32.1 pg [facility] MCHC 32.3 32.0 - [facility] 35.7 gm/dL [facility] Platelets 215 145 - 357 [facility] x10(3)/[facility] LABORATORY RDWSD 49.8 (H) 36.0 - [facility] 45.0 [facility] LABORATORY RDWCV 15.2 (H) 11.4 - [facility] 13.8 % [facility] MPV 12.3 7.6 - 12.9 [facility] LABORATORY nRBC % Auto 0.0 % [facility] nRBC Abs Auto 0.000 0.000 - [facility] 0.000 [facility] x10(3)/[facility] LABORATORY Specimen Anatomical Collection Method Collection Time Receive d Time (Source) Location / / Volume Laterality Blood specimen 12/08/2019 12:43 0 (specimen) AM EDT 12:52 AM EDT Resulting Agency Comment Spec In Lab Riki Stevens MD HEMATOLOGY ORDERABLES Performing Organization Address City/State/ZIP Code Phon e Number [address] Magnesium (12/08/2019 12:43 AM EDT) P athologist Signature Magnesium 1.01 0.69 - 1.07 [facility] mmol/L [facility] Specimen Anatomical Collection Method Collection Time Receive d Time (Source) Location / / Volume Laterality Blood specimen 12/08/2019 12:43 0 (specimen) AM EDT 12:52 AM EDT Resulting Agency Comment Spec In Lab Gretchen Yoon MD CHEMISTRY ORDERABLES Performing Organization Address City/State/ZIP Code Phon e Number [address] (ABNORMAL) BMP w/fasting Glucose (12/08/2019 12:43 AM EDT) P athologist Signature Glucose 106 (H) 65 - 99 [facility] Fasting mg/dL [facility] Comment: ?Fasting* Glucose Interpretive C [...] mg/dL [facility] LABORATORY Creatinine 1.16 0.80 - 1.50 [...] of body mass or the acutely ill. [email or web address]nkPatent Safari eGFR 72 >=60 mL/min/1.73 m?? [facility] Comment: The eGFR was calculated using the CKD-EP I equation. As with all creatinine based estimates of kidney function, eGFR values calculated with the CKD-EPI equation are not accurate in patients wi th acute kidney failure, extremes of body mass or the acutely ill. [email or web address] L[facility]Ynkf Specimen Anatomical Collection Method Collection Time Receive d Time (Source) Location / / Volume Laterality Blood specimen 12/08/2019 12:43 0 (specimen) AM EDT 12:52 AM EDT Resulting Agency Comment Spec In Lab Gretchen Yoon MD CHEMISTRY ORDERABLES Performing Organization Address [facility] Phon e Number [place] [id number]OS[address] Heparin (unfractionated) Level (12/08/2019 12:43 AM EDT) athologist Signature Heparin UFH 0.60 IU/mL [facility] LABORATORY Comment: Guidelines for [...] Lagos MD HEMATOLOGY ORDERABLES Performing Organization Address [facility]/[place] [address] [facility] [address] Potassium (12/07/2019 8:39 PM EDT) athologist Signature Potassium 4.1 3.5 - 5.0 [facility] mmol/L [facility] Comment: Please note: ??Patients with [...] Lagos MD CHEMISTRY ORDERABLES Performing Organization Address [facility]/ZIP [facility] [place] [address] Potassium (12/07/2019 4:02 PM EDT) P athologist Signature Potassium 4.0 3.5 - 5.0 [facility] DOV mmol/L [facility] Comment: Please note: ??Patients with [...] Yoon MD CHEMISTRY ORDERABLES Performing Organization Address City/[facility] [place] [address] (ABNORMAL) Hemogram (12/07/2019 4:02 PM EDT) Analysis Performed At Patho logist Time Signature WBC 17.4 (H) 4.0 - 9.5 [place] DOV x10(3)/[facility] LABORATORY RBC 4.58 4.58 - [facility] 5.54 [facility] x10(6)/[facility] LABORATORY Hemoglobin 13.5 (L) 13.7 - [place] DOV 16.5 gm/dL [facility] Hematocrit 40.8 40.5 - [place] DOV 48.5 % [facility] MCV 89.1 82.9 - [facility] 93.1 fL [facility] MCH 29.5 27.5 - [employer] 32.1 pg [facility] MCHC 33.1 32.0 - MELINA MONAE 35.7 gm/dL [facility] Platelets 238 145 - 357 [facility] x10(3)/[facility] LABORATORY RDWSD 48.8 (H) 36.0 - [place] DOV 45.0 [facility] LABORATORY RDWCV 15.0 (H) 11.4 - [facility] DOV 13.8 % [facility] MPV 12.2 7.6 - 12.9 [facility] DOV [facility] LABORATORY nRBC % Auto 0.0 % [facility] nRBC Abs Auto 0.000 0.000 - MELINA MARSHDOV 0.000 [facility] x10(3)/[facility] LABORATORY Specimen Anatomical Collection Method Collection Time Receive d Time (Source) Location / / Volume Laterality Blood specimen 12/07/2019 4:02 PM 020 4:08 (specimen) EDT PM EDT Resulting Agency Comment Spec In Lab Gretchen Yoon MD HEMATOLOGY ORDERABLES Performing Organization Address City/State/[place] [address] EKG 12 Lead (12/07/2019 [...] (Bezet) Calculated P -12 degrees [facility] [place] Calculated R 10 degrees [facility] [place] Calculated T -138 degrees MUSE SYSTEM [place] INTERPRETATION Supraventricular tachycardia MUSE SYSTEM Low voltage QRS Abnormal ECG When compared with ECG of 05-DEC-2019 10:52, Significant changes have occurred Confirmed by MD Lobo, Gumaro ([id number]) on 12/07/2019 12:29:52 PM Specimen Anatomical Collection Method Collection Time Receive d Time (Source) Location / / Volume Laterality 12/07/2019 11:58 12/07/2019 AM EDT 12:29 PM EDT Prais Lagos MD ECG ORDERABLES Performing Organization Address City/State/ZIP Code Phon e Number MUSE SYSTEM Potassium (12/07/2019 11:43 AM EDT) P athologist Signature Potassium 4.2 3.5 - 5.0 [facility] mmol/L [facility] Comment: Please note: ??Patients with [...] Organization Address City/State/[place] [address] Heparin (unfractionated) Level (12/07/2019 11:43 AM EDT) athologist Signature Heparin UFH 0.59 IU/mL [facility] LABORATORY Comment: Guidelines for [...] Lagos MD HEMATOLOGY ORDERABLES Performing Organization Address City/[facility]/ZIP Code Phon e Number [place] [phone] Heparin (unfractionated) Level (12/07/2019 5:20 AM EDT) athologist Signature Heparin UFH 0.53 IU/mL [facility] LABORATORY Comment: Guidelines for [...] Lagos MD HEMATOLOGY ORDERABLES Performing Organization Address City/[facility]/[place] [address] (ABNORMAL) Differential, Automated (12/07/2019 5:20 AM EDT) Patholo gist Method Time Signature Neutrophils % 62.4 % [facility] Neutr Abs (ANC) 5.46 1.70 - [facility] DOV 6.10 [facility] x10(3)/[facility] LABORATORY Lymphocytes % 20.3 % [facility] Lymphocytes Abs 1.8 0.9 - 3.2 [facility] x10(3)/[facility] LABORATORY Monocytes % 11.0 % [facility] Monocyte Abs 1.0 (H) 0.3 - 0.9 [facility] x10(3)/[facility] LABORATORY Eosinophils % 4.5 % [facility] Eosinophils Abs 0.4 0.0 - 0.4 [facility] x10(3)/[facility] LABORATORY Basophils % 0.9 % [facility] Basophils Abs 0.1 0.0 - 0.1 [facility] x10(3)/[facility] LABORATORY Immature Gran % 0.90 % [facility] [...] Gran Abs 0.08 (H) 0.00 - 0.04 x10(3)/[facility] LABORATORY Specimen Anatomical Collection Method Collection Time Receive d Time (Source) Location / / Volume Laterality Blood specimen 12/07/2019 5:20 AM 020 5:37 (specimen) EDT AM EDT Resulting Agency Comment Spec In Lab Riki Stevens MD HEMATOLOGY ORDERABLES Performing Organization Address City/State/[place] [address] (ABNORMAL) Hemogram (12/07/2019 5:20 AM EDT) Analysis Performed At Patho logist Time Signature WBC 8.7 4.0 - 9.5 [facility] x10(3)/[facility] LABORATORY RBC 4.20 (L) 4.58 - [facility] 5.54 [facility] x10(6)/[facility] LABORATORY Hemoglobin 12.3 (L) 13.7 - [facility] 16.5 gm/dL [facility] Hematocrit 37.4 (L) 40.5 - [facility] [place] 48.5 % [facility] MCV 89.0 82.9 - [place] MARSHD[place] 93.1 [facility] LABORATORY MCH 29.3 27.5 - [place] MARSHDOV 32.1 pg [facility] MCHC 32.9 32.0 - [place] MAR[place] 35.7 gm/dL [facility] Platelets 181 145 - 357 [facility] LAB[facility]ATORY RDWSD 47.7 (H) 36.0 - [place] MARSHDOV 45.0 [facility] LABORATORY RDWCV 14.8 (H) 11.4 - [place] 13.8 % [facility] MPV 12.3 7.6 - 12.9 [place] [facility] LABORATORY nRBC % Auto 0.0 % [facility] nRBC Abs Auto 0.000 0.000 - [place] 0.000 [facility] x10(3)/[facility] LABORATORY Specimen Anatomical Collection Method Collection Time Receive d Time (Source) Location / / Volume Laterality Blood specimen 12/07/2019 5:20 AM 020 5:37 (specimen) EDT AM EDT Resulting Agency Comment Spec In Lab Riki Stevens MD HEMATOLOGY ORDERABLES Performing Organization Address City/State/ZIP Code Phon e Number [address] Magnesium (12/07/2019 5:20 AM EDT) P athologist Signature Magnesium 0.89 0.69 - 1.07 [facility] mmol/L [facility] Specimen Anatomical Collection Method Collection Time Receive d Time (Source) Location / / Volume Laterality Blood specimen 12/07/2019 5:20 AM 020 5:37 (specimen) EDT AM EDT Resulting Agency Comment Spec In Lab Gretchen Yoon MD CHEMISTRY ORDERABLES Performing Organization Address City/[facility]/ZIP Code Phon e Number [address] (ABNORMAL) BMP w/fasting Glucose (12/07/2019 5:20 AM EDT) athologist Signature Glucose 100 (H) 65 - 99 [facility] Fasting mg/dL [facility] Comment: ?Fasting* Glucose Interpretive C [...] of body mass or the acutely ill. [email or web address] [email or web address] eGFR 101 >=60 mL/min/1.73 m?? [facility] Comment: The eGFR was calculated using the CKD-EP I equation. As with all creatinine based estimates of kidney function, eGFR values calculated with the CKD-EPI equation are not accurate in patients wi th acute kidney failure, extremes of body mass or the acutely ill. [email or web address] [email or web address] Specimen Anatomical Collection Method Collection Time Receive d Time (Source) Location / / Volume Laterality Blood specimen 12/07/2019 5:20 AM 020 5:37 (specimen) EDT AM EDT Resulting Agency Comment Spec In Lab Gretchen Yoon MD CHEMISTRY ORDERABLES Performing Organization Address City/State/[place] [address] Heparin (unfractionated) Level (12/06/2019 10:14 PM EDT) P athologist Signature Heparin UFH 0.29 IU/mL [facility] LABORATORY Comment: Guidelines for [...] City/State/ZIP Code Phon e Number [place] [phone] HOSPITAL LABORATORY Drive CT Head wo Contrast [...] For questions regarding this report, please contact [facility] number below. ? Narrative 12/06/2019 10:06 [...] Signature WBC 10.4 (H) 4.0 - 9.5 [facility] LABORATORY RBC 4.32 (L) 4.58 - [facility] DOV 5.54 [facility] x10(6)/[facility] LABORATORY Hemoglobin 12.5 (L) 13.7 - [facility] DOV 16.5 gm/dL [facility] Hematocrit 38.4 (L) 40.5 - [facility] 48.5 % [facility] MCV 88.9 82.9 - [facility] DOV 93.1 [facility] LABORATORY MCH 28.9 27.5 - [place] DOV 32.1 pg [facility] MCHC 32.6 32.0 - [facility] DOV 35.7 gm/dL [facility] Platelets 194 145 - 357 [facility] x10(3)/[facility] LABORATORY RDWSD 46.9 (H) 36.0 - [facility] ODV 45.0 [facility] LABORATORY RDWCV 14.6 (H) 11.4 - [facility] DOV 13.8 % [facility] MPV 11.9 7.6 - 12.9 [facility] DOV [facility] LABORATORY nRBC % Auto 0.0 % [facility] nRBC Abs Auto 0.000 0.000 - [facility] DOV 0.000 [facility] x10(3)/[facility] LABORATORY Specimen Anatomical Collection Method Collection Time Receive d Time (Source) Location / / Volume Laterality Blood specimen 12/06/2019 4:20 PM 020 4:31 (specimen) EDT PM EDT Resulting Agency Comment Spec In Lab Gretchen Yoon MD HEMATOLOGY ORDERABLES Performing Organization Address City/State/ZIP Code [place] [address] Heparin (unfractionated) Level (12/06/2019 4:20 PM EDT) athologist Signature Heparin UFH 0.30 IU/mL [facility] LABORATORY Comment: Guidelines for [...] Organization Address City/State/[place] [address] [facility] [address] Drive Heparin (unfractionated) Level (12/06/2019 10:02 AM EDT) athologist Signature Heparin UFH <0.04 IU/mL [facility] LABORATORY Comment: Guidelines for [...] Lagos MD HEMATOLOGY ORDERABLES Performing Organization Address City/[facility]/[place] [address] Magnesium (12/06/2019 3:36 AM EDT) P athologist Signature Magnesium 0.86 0.69 - 1.[facility]L [facility] Specimen Anatomical Collection Method Collection Time Receive d Time (Source) Location / / Volume Laterality Blood specimen 12/06/2019 3:36 AM 020 3:45 (specimen) EDT AM EDT Resulting Agency Comment Spec In Lab Gretchen Yoon MD CHEMISTRY ORDERABLES Performing Organization Address City/[facility]/ZIP Code Phon e Number [address] (ABNORMAL) BMP w/fasting Glucose (12/06/2019 3:36 AM EDT) P athologist Signature Glucose 103 (H) 65 - 99 [facility] Fasting mg/dL [facility] Comment: ?Fasting* Glucose Interpretive C [...] of body mass or the acutely ill. [email or web address] eGFR 99 >=60 mL/min/1.73 m?? [facility] Comment: The eGFR was calculated using the CKD-EP I equation. As with all creatinine based estimates of kidney function, eGFR values calculated with the CKD-EPI equation are not accurate in patients wi th acute kidney failure, extremes of body mass or the acutely ill. [email or web address] Specimen Anatomical Collection Method Collection Time Receive d Time (Source) Location / / Volume Laterality Blood specimen 12/06/2019 3:36 AM 020 3:45 (specimen) EDT AM EDT Resulting Agency Comment Spec In Lab Gretchen Yoon MD CHEMISTRY ORDERABLES Performing Organization Address City/State/[place] [address] (ABNORMAL) Hemogram (12/06/2019 3:36 AM EDT) Analysis Performed At Patho logist Time Signature WBC 9.2 4.0 - 9.5 [facility] x10(3)/[facility] LABORATORY RBC 3.99 (L) 4.58 - [facility] 5.54 [facility] x10(6)/[facility] LABORATORY Hemoglobin 11.9 (L) 13.7 - [facility] 16.5 gm/dL [facility] Hematocrit 35.5 (L) 40.5 - [facility] 48.5 % [facility] MCV 89.0 82.9 - [facility] LABORATORY MCH 29.8 27.5 - [place] DOV 32.1 pg [facility] MCHC 33.5 32.0 - [facility] 35.7 gm/dL [facility] Platelets 164 145 - 357 [facility] x10(3)/[facility] LABORATORY RDWSD 47.6 (H) 36.0 - [place] DOV 45.0 [facility] LABORATORY RDWCV 14.7 (H) 11.4 - [place] DOV 13.8 % [facility] MPV 11.9 7.6 - 12.9 [facility] LABORATORY nRBC % Auto 0.0 % [facility] nRBC Abs Auto 0.000 0.000 - [place] DOV 0.000 [facility] x10(3)/[facility] LABORATORY Specimen Anatomical Collection Method Collection Time Receive d Time (Source) Location / / Volume Laterality Blood specimen 12/06/2019 3:36 AM 020 3:45 (specimen) EDT AM EDT Resulting Agency Comment Spec In Lab Gretchen Yoon MD HEMATOLOGY ORDERABLES Performing Organization Address City/State/[place] [address] (ABNORMAL) Differential, Automated (12/05/2019 10:52 PM EDT) [facility] Method Time Signature Neutrophils % 61.9 % [facility] Neutr Abs (ANC) 6.02 1.70 - [facility] 6.10 [facility] x10(3)/[facility] LABORATORY Lymphocytes % 22.4 % [facility] Lymphocytes Abs 2.2 0.9 - 3.2 [facility] x10(3)/[facility] LABORATORY Monocytes % 10.4 % [facility] Monocyte Abs 1.0 (H) 0.3 - 0.9 [facility] x10(3)/[facility] LABORATORY Eosinophils % 4.1 % [facility] Eosinophils Abs 0.4 0.0 - 0.4 [facility] x10(3)/[facility] LABORATORY Basophils % 0.7 % [facility] Basophils Abs 0.1 0.0 - 0.1 [facility] x10(3)/[facility] LABORATORY Immature Gran % 0.50 % [facility] [...] Gran Abs 0.05 (H) 0.00 - 0.04 x10(3)/[facility] LABORATORY Specimen Anatomical Collection Method Collection Time Receive d Time (Source) Location / / Volume Laterality Blood specimen 12/05/2019 10:52 0 (specimen) PM EDT 10:59 PM EDT Resulting Agency Comment Spec In Lab Mandi Barrera MD HEMATOLOGY ORDERABLES Performing Organization Address City/[facility]/[place] [address] (ABNORMAL) Hemogram (12/05/2019 10:52 PM EDT) Analysis Performed At Patho logist Time Signature WBC 9.7 (H) 4.0 - 9.5 [facility] x10(3)/[facility] LABORATORY RBC 4.07 (L) 4.58 - [place] MARSHDOV 5.54 [facility] x10(6)/[facility] LABORATORY Hemoglobin 11.9 (L) 13.7 - [facility] gm/dL [facility] Hematocrit 36.4 (L) 40.5 - [facility] 48.5 % [facility] MCV 89.4 82.9 - [facility] 93.1 [facility] LABORATORY MCH 29.2 27.5 - [facility] DOV 32.1 pg [facility] MCHC 32.7 32.0 - [place] DOV 35.7 gm/dL [facility] Platelets 167 145 - 357 [facility] x10(3)/[facility] LABORATORY RDWSD 47.7 (H) 36.0 - [place] DOV 45.0 [facility] LABORATORY RDWCV 14.6 (H) 11.4 - [facility] DOV 13.8 % [facility] MPV 12.1 7.6 - 12.9 [facility] LABORATORY nRBC % Auto 0.0 % [facility] nRBC Abs Auto 0.000 0.000 - [facility] DOV 0.000 [facility] x10(3)/[facility] LABORATORY Specimen Anatomical Collection Method Collection Time Receive d Time (Source) Location / / Volume Laterality Blood specimen 12/05/2019 10:52 0 (specimen) PM EDT 10:59 PM EDT Resulting Agency Comment Spec In Lab Mandi Barrera MD HEMATOLOGY ORDERABLES Performing Organization Address City/State/[place] [address] Heparin (unfractionated) Level (12/05/2019 10:52 PM EDT) P athologist Signature Heparin UFH <0.04 IU/mL [facility] LABORATORY Comment: Guidelines for [...] Organization Address City/State/[place] [address] MRI Brain wwo Contrast [...] Time Signature WBC 8.7 4.0 - 9.5 [facility] x10(3)/[facility] LABORATORY RBC 4.17 (L) 4.58 - [facility] D[facility] 5.54 [facility] x10(6)/[facility] LABORATORY Hemoglobin 12.4 (L) 13.7 - [facility] gm/dL [facility] Hematocrit 37.0 (L) 40.5 - [facility] 48.5 % [facility] MCV 88.7 82.9 - [facility] LABORATORY MCH 29.7 27.5 - [place] DOV 32.1 pg [facility] MCHC 33.5 32.0 - [facility] 35.7 gm/dL [facility] Platelets 173 145 - 357 [facility] x10(3)/[facility] LABORATORY RDWSD 47.3 (H) 36.0 - [facility]0 [facility] LABORATORY RDWCV 14.6 (H) 11.4 - [facility] DOV 13.8 % [facility] MPV 12.1 7.6 - 12.9 [facility] LABORATORY nRBC % Auto 0.0 % [facility] nRBC Abs Auto 0.000 0.000 - [facility] DOV 0.000 [facility] x10(3)/[facility] LABORATORY Specimen Anatomical Collection Method Collection Time Receive d Time (Source) Location / / Volume Laterality Blood specimen 12/05/2019 1:00 PM 020 1:13 (specimen) EDT PM EDT Resulting Agency Comment Spec In Lab Gretchen Yoon MD HEMATOLOGY ORDERABLES Performing Organization Address City/State/[place] [address] EKG 12 Lead (12/05/2019 10:52 AM EDT) Component Value Ref Range Test Analysis Performed Pathologis t Method Time At Signature Ventricular rate 72 BPM MUSE SYSTEM Atrial Rate 72 BPM MUSE SYSTEM P-R Interval 138 ms MUSE SYSTEM QRS Duration 96 ms MUSE SYSTEM Q-T Interval 396 ms MUSE SYSTEM QTC Calculated 433 ms MUSE SYSTEM (Bezet) Calculated P Webster 65 degrees MUSE SYSTEM Calculated R Webster 13 degrees MUSE SYSTEM Calculated T Webster 0 degrees MUSE SYSTEM INTERPRETATION Sinus rhythm Occasional Premature ventricular complexe s MUSE SYSTEM Possible Inferior infarct (cited on or before 29-NOV-2019) Abnormal ECG When compared with ECG of 04-DEC-2019 10:43, Sinus rhythm has replaced Atrial fibrillation Vent. rate has decreased BY ??86 BPM Confirmed by MD Ceja Daniel ([id number]) on 12/05/2019 3:55:22 PM Specimen Anatomical Collection [...] Department: Vascular Surgery Lab VASCUBASE Report Patient: [id number] (ANGEL LUIS SALINAS) CPT: 54206 ICD10: I26.99 Referring Physician: GRETCHEN YOON ?? [...] athologist Signature Magnesium 0.87 0.69 - 1.07 [facility] mmol/L [facility] Specimen Anatomical Collection Method Collection Time Receive d Time (Source) Location / / Volume Laterality Blood specimen 12/05/2019 4:18 AM 020 4:31 (specimen) EDT AM EDT Resulting Agency Comment Spec In Lab Gretchen Yoon MD CHEMISTRY ORDERABLES Performing Organization Address City/[facility]/[place] [address] (ABNORMAL) BMP w/fasting Glucose (12/05/2019 4:18 AM EDT) P athologist Signature Glucose 104 (H) 65 - 99 [facility] Fasting mg/dL [facility] Comment: ?Fasting* Glucose Interpretive C [...] of body mass or the acutely ill. [email or web address] [email or web address] eGFR 84 >=60 mL/min/1.73 m?? [facility] Comment: The eGFR was calculated using the CKD-EP I equation. As with all creatinine based estimates of kidney function, eGFR values calculated with the CKD-EPI equation are not accurate in patients wi th acute kidney failure, extremes of body mass or the acutely ill. [email or web address] [email or web address] Specimen Anatomical Collection Method Collection Time Receive d Time (Source) Location / / Volume Laterality Blood specimen 12/05/2019 4:18 AM 020 4:31 (specimen) EDT AM EDT Resulting Agency Comment Spec In Lab Gretchen Yoon MD CHEMISTRY ORDERABLES Performing Organization Address City/State/[place] [address] (ABNORMAL) Hemogram (12/05/2019 4:18 AM EDT) Analysis Performed At Patho logist Time Signature WBC 8.6 4.0 - 9.5 [facility] x10(3)/[facility] LABORATORY RBC 4.28 (L) 4.58 - [place] DOV 5.54 [facility] x10(6)/[facility] LABORATORY Hemoglobin 12.4 (L) 13.7 - [facility] gm/dL [facility] Hematocrit 37.3 (L) 40.5 - [facility] 48.5 % [facility] MCV 87.1 82.9 - [facility] 93[facility]1 [facility] LABORATORY MCH 29.0 27.5 - [place] DOV 32.1 pg [facility] MCHC 33.2 32.0 - [place] DOV 35.7 gm/dL [facility] Platelets 163 145 - 357 [facility] x10(3)/[facility] LABORATORY RDWSD 46.4 (H) 36.0 - [place] DOV 45.0 [facility] LABORATORY RDWCV 14.4 (H) 11.4 - [place] DOV 13.8 % [facility] MPV 11.7 7.6 - 12.9 [place] DOV [facility] LABORATORY nRBC % Auto 0.0 % [facility] nRBC Abs Auto 0.000 0.000 - [place] DOV 0.000 [facility] x10(3)/[facility] LABORATORY Specimen Anatomical Collection Method Collection Time Receive d Time (Source) Location / / Volume Laterality Blood specimen 12/05/2019 4:18 AM 020 4:31 (specimen) EDT AM EDT Resulting Agency Comment Spec In Lab Gretchen Yoon MD HEMATOLOGY ORDERABLES Performing Organization Address City/State/[place] [address] Cardiac for Morphology [...] For questions regarding this report, please contact [facility] number below. ? Electronically signed by: Roselyn Luciano [facility] ([phone]), at 12/04/2019 6:16 PM Narrative 12/04/2019 6:16 PM EDT EXAMINATION: CT CARDIAC FOR MORPHOLOGY & FUNCTION CLINICAL HISTORY: Pt with AFib and intra cranial hemorrhage, evaluation for possible left atrial appendage closure TECHNIQUE: After timing bolus, 0.6 mm [facility] axial contiguous sections were obtained through the [...] from neck/greatest puja meter to back wall: INDONESIAN 91, CAU 13: ??19 mm CORTES ??1, [...] from neck/greatest puja meter to back wall: INDONESIAN 91, CAU 13: 19 mm CORTES 1, [...] For questions regarding this report, please contact [facility] number below. Electronically signed by: Roselyn Luciano, [facility] ([phone]), at 12/04/2019 6:16 PM Gretchen Yoon MD IMG CT ORDERABLES (ABNORMAL) Hemogram (12/04/2019 12:55 PM EDT) Analysis Performed At Patho logist Time Signature WBC 8.9 4.0 - 9.5 [facility] x10(3)/[facility] LABORATORY RBC 4.69 4.58 - [facility] 5.54 [facility] x10(6)/[facility] LABORATORY Hemoglobin 13.5 (L) 13.7 - [facility] 16.5 gm/dL [facility] Hematocrit 41.7 40.5 - [facility] 48.5 % [facility] MCV 88.9 82.9 - [facility] MONAE 93.1 [facility] LABORATORY MCH 28.8 27.5 - [place] MONAE 32.1 pg [facility] MCHC 32.4 32.0 - [place] MONAE 35.7 gm/dL [facility] Platelets 196 145 - 357 [facility] x10(3)/[facility] LABORATORY RDWSD 46.7 (H) 36.0 - [place] DOV 45.0 [facility] LABORATORY RDWCV 14.5 (H) 11.4 - [place] DOV 13.8 % [facility] MPV 12.1 7.6 - 12.9 [facility] MARSHDOV [facility] LABORATORY nRBC % Auto 0.0 % [facility] nRBC Abs Auto 0.000 0.000 - [place] MONAE 0.000 [facility] x10(3)/[facility] LABORATORY Specimen Anatomical Collection Method Collection Time Receive d Time (Source) Location / / Volume Laterality Blood specimen 12/04/2019 12:55 0 1:06 (specimen) PM EDT PM EDT Resulting Agency Comment Spec In Lab Gretchen Yoon MD HEMATOLOGY ORDERABLES Performing Organization Address City/State/[place] [address] EKG 12 Lead (12/04/2019 10:43 AM EDT) Component Value Ref Range Test Analysis Performed Pathologis t Method Time At Signature Ventricular rate 158 BPM MUSE SYSTEM Atrial Rate 102 BPM MUSE SYSTEM QRS Duration 92 ms MUSE SYSTEM Q-T Interval 294 ms MUSE SYSTEM QTC Calculated 476 ms MUSE SYSTEM (Bezet) Calculated R Webster 17 degrees MUSE SYSTEM Calculated T Webster 90 degrees MUSE SYSTEM INTERPRETATION Atrial fibrillation with rapid ventricular response MUSE SYSTEM Possible Inferior infarct (cited on or before 29-NOV-2019) Abnormal ECG When compared with ECG of 30-NOV-2019 21:07, Atrial fibrillation has replaced Sinus rhythm Vent. rate has increased BY ??65 BPM Confirmed by MD Ceja Daniel ([id number]) on 12/05/2019 8:59:44 AM Specimen Anatomical Collection Method Collection Time Receive d Time (Source) Location / / Volume Laterality 12/04/2019 10:43 12/05/2019 8:59 AM EDT AM EDT Gretchen Yoon MD ECG ORDERABLES Performing Organization Address City/State/ZIP Code Phon e Number MUSE SYSTEM (ABNORMAL) Magnesium (12/04/2019 4:28 AM EDT) P athologist Signature Magnesium 1.17 (H) 0.69 - 1.07 [facility] mmol/L [facility] Specimen Anatomical Collection Method Collection Time Receive d Time (Source) Location / / Volume Laterality Blood specimen 12/04/2019 4:28 AM 020 4:40 (specimen) EDT AM EDT Resulting Agency Comment Spec In Lab Gretchen Yoon MD CHEMISTRY ORDERABLES Performing Organization Address City/State/[place] [address] (ABNORMAL) BMP w/fasting Glucose (12/04/2019 4:28 AM EDT) P athologist Signature Glucose 108 (H) 65 - 99 [facility] Fasting mg/dL [facility] Comment: ?Fasting* Glucose Interpretive C [...] of body mass or the acutely ill. [email or web address] eGFR 98 >=60 mL/min/1.73 m?? [facility] Comment: The eGFR was calculated using the CKD-EP I equation. As with all creatinine based estimates of kidney function, eGFR values calculated with the CKD-EPI equation are not accurate in patients wi th acute kidney failure, extremes of body mass or the acutely ill. [email or web address] [email or web address] Specimen Anatomical Collection Method Collection Time Receive d Time (Source) Location / / Volume Laterality Blood specimen 12/04/2019 4:28 AM 020 4:40 (specimen) EDT AM EDT Resulting Agency Comment Spec In Lab Gretchen Yoon MD CHEMISTRY ORDERABLES Performing Organization Address City/State/[place] [address] (ABNORMAL) Hemogram (12/04/2019 4:28 AM EDT) Analysis Performed At Patho logist Time Signature WBC 7.8 4.0 - 9.5 [facility] x10(3)/[facility] LABORATORY RBC 4.10 (L) 4.58 - [facility] 5.54 [facility] x10(6)/[facility] LABORATORY Hemoglobin 12.0 (L) 13.7 - [facility] 16.5 gm/dL [facility] Hematocrit 36.5 (L) 40.5 - MELINA MONAE 48.5 % [facility] MCV 89.0 82.9 - M[place]INA VILLANUEVACK 93.1 [facility] LABORATORY MCH 29.3 27.5 - [place] VILL[place]ACK 32.1 pg [facility] MCHC 32.9 32.0 - MELINA VILLANUEVACK 35.7 gm/dL [facility] Platelets 151 145 - 357 [place] x10(3)/[facility] LABORATORY RDWSD 46.9 (H) 36.0 - MELINA MONAE 45.0 [facility] LABORATORY RDWCV 14.4 (H) 11.4 - MELINA MONAE 13.8 % [facility] MPV 12.2 7.6 - 12.9 MELINA MONAE [facility] LABORATORY nRBC % Auto 0.0 % [facility] nRBC Abs Auto 0.000 0.000 - MELINA MONAE 0.000 [facility] x10(3)/[facility] LABORATORY Specimen Anatomical Collection Method Collection Time Receive d Time (Source) Location / / Volume Laterality Blood specimen 12/04/2019 4:28 AM 020 4:40 (specimen) EDT AM EDT Resulting Agency Comment Spec In Lab Gretchen Yoon MD HEMATOLOGY ORDERABLES Performing Organization Address City/State/[place] [address] Potassium (12/03/2019 7:55 PM EDT) P athologist Signature Potassium 3.9 3.5 - 5.0 [facility]/L [facility] Comment: Please note: ??Patients with [...] Organization Address City/State/[place] [address] Potassium (12/03/2019 1:57 PM EDT) P athologist Signature Potassium 3.7 3.5 - 5.0 M[place] DOV mmol/L [facility] Comment: Please note: ??Patients with [...] Yoon MD CHEMISTRY ORDERABLES Performing Organization Address [facility]/[place]IP [place] [address] (ABNORMAL) Hemogram (12/03/2019 1:57 PM EDT) Analysis Performed At Patho logist Time Signature WBC 8.8 4.0 - 9.5 M[place] DOV x10(3)/[facility] LABORATORY RBC 4.27 (L) 4.58 - M[place] DOV 5.54 [facility] x10(6)/[facility] LABORATORY Hemoglobin 12.5 (L) 13.7 - [place] DOV 16.5 gm/dL [facility] Hematocrit 37.5 (L) 40.5 - M[place] DOV 48.5 % [facility] MCV 87.8 82.9 - M[place] DOV 93.1 [facility] LABORATORY MCH 29.3 27.5 - M[place] DOV 32.1 pg [facility] MCHC 33.3 32.0 - M[place] DOV 35.7 gm/dL [facility] Platelets 158 145 - 357 MELINA DOV x10(3)/[facility] LABORATORY RDWSD 46.9 (H) 36.0 - M[place] DOV 45.0 [facility] LABORATORY RDWCV 14.5 (H) 11.4 - M[place] DOV 13.8 % [facility] MPV 12.2 7.6 - 12.9 MELINA MONAE fL [facility] nRBC % Auto 0.0 % [facility] nRBC Abs Auto 0.000 0.000 - MELINA MONAE 0.000 [facility] x10(3)/[facility] LABORATORY Specimen Anatomical Collection Method Collection Time Receive d Time (Source) Location / / Volume Laterality Blood specimen 12/03/2019 1:57 PM 020 2:21 (specimen) EDT PM EDT Resulting Agency Comment Spec In Lab Gretchen Yoon MD HEMATOLOGY ORDERABLES Performing Organization Address City/State/ZIP Code Phon e Number [address] Magnesium (12/03/2019 4:02 AM EDT) P athologist Signature Magnesium 0.79 0.69 - 1.07 [facility] mmol/L [facility] Specimen Anatomical Collection Method Collection Time Receive d Time (Source) Location / / Volume Laterality Blood specimen 12/03/2019 4:02 AM 020 4:16 (specimen) EDT AM EDT Resulting Agency Comment Spec In Lab Gretchen Yoon MD CHEMISTRY ORDERABLES Performing Organization Address City/State/ZIP Code Phon e Number [address] (ABNORMAL) BMP w/fasting Glucose (12/03/2019 4:02 AM EDT) P athologist Signature Glucose 100 (H) 65 - 99 [facility] Fasting mg/dL [facility] Comment: ?Fasting* Glucose Interpretive C [...] of body mass or the acutely ill. [email or web address] [email or web address] eGFR 92 >=60 mL/min/1.73 m?? [facility] Comment: The eGFR was calculated using the CKD-EP I equation. As with all creatinine based estimates of kidney function, eGFR values calculated with the CKD-EPI equation are not accurate in patients wi th acute kidney failure, extremes of body mass or the acutely ill. [email or web address] [email or web address] Specimen Anatomical Collection Method Collection Time Receive d Time (Source) Location / / Volume Laterality Blood specimen 12/03/2019 4:02 AM 020 4:16 (specimen) EDT AM EDT Resulting Agency Comment Spec In Lab Gretchen Yoon MD CHEMISTRY ORDERABLES Performing Organization Address City/State/[place] [address] (ABNORMAL) Hemogram (12/03/2019 4:02 AM EDT) Analysis Performed At Patho logist Time Signature WBC 9.1 4.0 - 9.5 [facility] x[facility](3[facility] LABORATORY RBC 4.01 (L) 4.58 - MELINA DOV 5.54 [facility] x10(6)/[facility] LABORATORY Hemoglobin 11.8 (L) 13.7 [facility] 16[facility] gm/dL [facility] Hematocrit 35.6 (L) 40.5 - [facility] 48.5 % [facility] MCV 88.8 82.9 - [facility] 93.1 [facility] LABORATORY MCH 29.4 27.5 - [facility] 32.1 pg [facility] MCHC 33.1 32.0 - M[place] DOV 35.7 gm/dL [facility] Platelets 130 (L) 145 - 357 [facility] x10(3)/[facility] LABORATORY RDWSD 46.6 (H) 36.0 - [place] DOV 45.0 [facility] LABORATORY RDWCV 14.4 (H) 11.4 - [facility] DOV 13.8 % [facility] MPV 12.4 7.6 - 12.9 [facility] LABORATORY nRBC % Auto 0.0 % [facility] nRBC Abs Auto 0.000 0.000 - [place] DOV 0.000 [facility] x10(3)/[facility] LABORATORY Specimen Anatomical Collection Method Collection Time Receive d Time (Source) Location / / Volume Laterality Blood specimen 12/03/2019 4:02 AM 020 4:16 (specimen) EDT AM EDT Resulting Agency Comment Spec In Lab Gretchen Yoon MD HEMATOLOGY ORDERABLES Performing Organization Address City/State/[place] [address] XR Chest One View [...] WBC 10.6 (H) 4.0 - 9.5 [facility] LAB[facility]ATORY RBC 4.00 (L) 4.58 - M[place] DOV 5.54 [facility] x10(6)/[facility] LABORATORY Hemoglobin 11.9 (L) 13.7 - [place] DOV 16.5 gm/dL [facility] Hematocrit 35.7 (L) 40.5 - [facility] DOV 48.5 % [facility] MCV 89.3 82.9 - [facility] DOV 93.1 [facility] LABORATORY MCH 29.8 27.5 - [place] DOV 32.1 pg [facility] MCHC 33.3 32.0 - [place] DOV 35.7 gm/dL [facility] Platelets 120 (L) 145 - 357 [facility] x10(3)/[facility] LABORATORY RDWSD 47.5 (H) 36.0 - [facility] DOV 45.0 [facility] LABORATORY RDWCV 14.6 (H) 11.4 - [facility] DOV 13.8 % [facility] MPV 12.0 7.6 - 12.9 [facility] DOV [facility] LABORATORY nRBC % Auto 0.0 % [facility] nRBC Abs Auto 0.000 0.000 - [place] DOV 0.000 [facility] x10(3)/[facility] LABORATORY Specimen Anatomical Collection Method Collection Time Receive d Time (Source) Location / / Volume Laterality Blood specimen 12/02/2019 12:50 0 1:22 (specimen) PM EDT PM EDT Resulting Agency Comment Spec In Lab Gretchen Yoon MD HEMATOLOGY ORDERABLES Performing Organization Address City/State/ZIP Code Phon e Number [address] Blue Tube HOLD (12/02/2019 4:55 AM EDT) athologist Signature Blue Hold Sample in [facility] lab. [facility] Specimen Anatomical Collection Method Collection Time Receive d Time (Source) Location / / Volume Laterality Blood specimen Venous Draw / 12/02/2019 4:55 AM 2019 5:03 (specimen) Unknown EDT AM EDT Darrell Glasgow MD HEMATOLOGY ORDERABLES Performing Organization Address City/State/ZIP Code Phon e Number [address] Magnesium (12/02/2019 4:55 AM EDT) athologist Signature Magnesium 0.85 0.69 - 1.07 [facility] mmol/L [facility] Specimen Anatomical Collection Method Collection Time Receive d Time (Source) Location / / Volume Laterality Blood specimen 12/02/2019 4:55 AM 020 5:02 (specimen) EDT AM EDT Resulting Agency Comment Spec In Lab Gretchen Yoon MD CHEMISTRY ORDERABLES Performing Organization Address City/State/ZIP Code Phon e Number [address] (ABNORMAL) BMP w/fasting Glucose (12/02/2019 4:55 AM EDT) athologist Signature Glucose 114 (H) 65 - 99 [facility] Fasting mg/dL [facility] Comment: ?Fasting* Glucose Interpretive C [...] of body mass or the acutely ill. [email or web address] eGFR 94 >=60 mL/min/1.73 m?? [facility] Comment: The eGFR was calculated using the CKD-EP I equation. As with all creatinine based estimates of kidney function, eGFR values calculated with the CKD-EPI equation are not accurate in patients wi th acute kidney failure, extremes of body mass or the acutely ill. [email or web address] Specimen Anatomical Collection Method Collection Time Receive d Time (Source) Location / / Volume Laterality Blood specimen 12/02/2019 4:55 AM 020 5:02 (specimen) EDT AM EDT Resulting Agency Comment Spec In Lab Gretchen Yoon MD CHEMISTRY ORDERABLES Performing Organization Address City/State/ZIP Code Phon e Number [address] (ABNORMAL) Hemogram (12/02/2019 4:55 AM EDT) Analysis Performed At Patho logist Time Signature WBC 9.3 4.0 - 9.5 [facility] DOV x10(3)/[facility] LABORATORY RBC 3.71 (L) 4.58 - [place] DOV 5.54 [facility] x10(6)/[facility] LABORATORY Hemoglobin 10.8 (L) 13.7 - [facility] 16[facility] gm/dL [facility] Hematocrit 33.1 (L) 40.5 - [facility] 48.5 % [facility] MCV 89.2 82.9 - [facility] 93[facility]1 [facility] LABORATORY MCH 29.1 27.5 - [place] DOV 32.1 pg [facility] MCHC 32.6 32.0 - [place] DOV 35.7 gm/dL [facility] Platelets 93 (L) 145 - 357 [facility] x10(3)/[facility] LABORATORY RDWSD 47.1 (H) 36.0 - [place] DOV 45.0 [facility] LABORATORY RDWCV 14.6 (H) 11.4 - [facility] 13.8 % [facility] MPV 11.7 7.6 - 12.9 [facility] nRBC % Auto 0.0 % [facility] nRBC Abs Auto 0.000 0.000 - [facility] DOV 0.000 [facility] x10(3)/[facility] LABORATORY Specimen Anatomical Collection Method Collection Time Receive d Time (Source) Location / / Volume Laterality Blood specimen 12/02/2019 4:55 AM 020 5:02 (specimen) EDT AM EDT Resulting Agency Comment Spec In Lab Gretchen Yoon MD HEMATOLOGY ORDERABLES Performing Organization Address City/State/ZIP Code Phon e Number [address] Transfuse 1 unit platelets, apheresis [...] For questions regarding this report, please contact [facility] number below. ? Electronically signed by: Angel Luis Barboza MD, [facility] ([phone]), at 12/01/2019 8:02 PM Narrative 12/01/2019 8:02 [...] e number below. Gretchen Yoon MD IMG MRI ORDERABLES Prepare Platelets, Apheresis (12/01/2019 6:20 PM EDT) athologist Signature Dispensed? Yes [facility] Specimen Anatomical Collection Method Collection Time Receive d Time (Source) Location / / Volume Laterality Blood specimen 12/01/2019 6:20 PM 020 6:18 (specimen) EDT PM EDT Gretchen Yoon MD BLOOD BANK ORDERABLES Performing Organization Address City/[facility] [place] [place] [address] Duplex for DVT, Arm, Unilat (12/01/2019 5:08 PM EDT) Component Value Ref Test Analysis Performed At [facility] Range Method Time Signature VB Text Department: Vascular Surgery Lab VASCUBASE Report Patient: [id number] (ANGEL LUIS SALINAS) CPT: 30532 ICD10: R60.0 Referring Physician: GRETCHEN YOON ?? [...] please contact e number below. ? Narrative 12/01/2019 3:53 PM EDT EXAMINATION: CT HEAD WO CONTRAST (GENERIC) CLINICAL HISTORY: Headache, intracranial hemorrhage suspected Serial CT scan: please assess for propag ation of known ICH noted on prior Head CT/imaging. TECHNIQUE: CT head performed without intravenous co ntrast administration. COMPARISON: Head CT 11/30/2019. CT angiogram of the [place] 11/01. FINDINGS: Ventricles are normal [...] Head CT 11/30/2019. CT angiogram of [facility] [place] 11/01. FINDINGS: Ventricles are normal [...] Scan, Peripheral Blood (12/01/2019 12:51 PM EDT) [facility] Method Time Signature Plat Estimate Decreased [facility] RBC Morphology Normal [facility] Giant Less than 1 /HPF [facility] Platelets [facility] Specimen Anatomical Collection Method Collection Time Receive d Time (Source) Location / / Volume Laterality Blood specimen 12/01/2019 12:51 0 1:05 (specimen) PM EDT PM EDT Resulting Agency Comment Spec In Lab Riki Stevens MD HEMATOLOGY ORDERABLES Performing Organization Address City/State/[place] [address] (ABNORMAL) Differential, Automated (12/01/2019 12:51 PM EDT) [facility] Method Time Signature Neutrophils % 74.9 % [facility] Neutr Abs (ANC) 6.34 (H) 1.70 - [facility] 6.10 [facility] x10(3)/[facility] LABORATORY Lymphocytes % 11.4 % [facility] Lymphocytes Abs 1.0 0.9 - 3.2 [facility] x10(3)/[facility] LABORATORY Monocytes % 12.4 % [facility] Monocyte Abs 1.0 (H) 0.3 - 0.9 [facility] x10(3)/[facility] LABORATORY Eosinophils % 0.4 % [facility] Eosinophils Abs 0.0 0.0 - 0.4 [facility] x10(3)/[facility] LABORATORY Basophils % 0.4 % [facility] Basophils Abs 0.0 0.0 - 0.1 [facility] x10(3)/[facility] LABORATORY Immature Gran % 0.50 % [...] 0.04 x10(3)/[facility] Y [facility] LABORATORY Specimen Anatomical Collection Method Collection Time Receive d Time (Source) Location / / Volume Laterality Blood specimen 12/01/2019 12:51 0 1:05 (specimen) PM EDT PM EDT Resulting Agency Comment Spec In Lab Riki Stevens MD HEMATOLOGY ORDERABLES Performing Organization Address City/State/[place] [address] (ABNORMAL) Hemogram (12/01/2019 12:51 PM EDT) Analysis Performed At Patho logist Time Signature WBC 8.4 4.0 - 9.5 [facility] x10(3)/[facility] LABORATORY RBC 3.69 (L) 4.58 - [facility] 5.54 [facility] x10(6)/[facility] LABORATORY Hemoglobin 10.8 (L) 13.7 - [facility] 16.5 gm/dL [facility] Hematocrit 32.4 (L) 40.5 - [facility] 48.5 % [facility] MCV 87.8 82.9 - [facility] 93.1 [facility] LABORATORY MCH 29.3 27.5 - [facility] 32.1 pg [facility] MCHC 33.3 32.0 - [facility] 35.7 gm/dL [facility] Platelets 72 (L) 145 - 357 [facility] x10(3)/[facility] LABORATORY RDWSD 47.2 (H) 36.0 - [facility] 45.0 [facility] RDWCV 14.6 (H) 11.4 - [facility] 13.8 % [facility] MPV 12.2 7.6 - 12.9 [facility] LABORATORY nRBC % Auto 0.0 % [facility] nRBC Abs Auto 0.000 0.000 - [facility] 0.000 [facility] x10(3)/[facility] LABORATORY Specimen Anatomical Collection Method Collection Time Receive d Time (Source) Location / / Volume Laterality Blood specimen 12/01/2019 12:51 0 1:05 (specimen) PM EDT PM EDT Resulting Agency Comment Spec In Lab Riki Stevens MD HEMATOLOGY ORDERABLES Performing Organization Address City/[facility]/ZIP Code Phon e Number [address] (ABNORMAL) Coox2 (12/01/2019 11:42 AM EDT) Analysis Performed At Patho logist Time Signature pO2 Coox 30 mmHg [facility] Hgb Blood Gas 11.6 (L) 13.7 - [facility] 16.5 gm/dL [facility] O2HB Coox 60.8 % [facility] COHB Coox 0.6 % [facility] Comment: Nonsmokers: 0.5-1.5% COHB Smokers: Variable, but usually less than 10% Toxic: 20-30% COHB Lethal: Greater than 60% COHB METHB Coox 0.6 <=1.5 % [facility] LABORATORY Source Coox Mixed Venous [facility] Specimen Anatomical Collection Method Collection Time Receive d Time (Source) Location / / Volume Laterality Blood specimen 12/01/2019 11:42 0 (specimen) AM EDT 11:42 AM EDT Gretchen Yoon MD CHEMISTRY ORDERABLES Performing Organization Address City/[facility]/ZIP Code Phon e Number [address] Sedimentation rate (12/01/2019 3:55 AM EDT) P athologist Signature Sed Rate 25 3 - 46 [facility]/hr [facility] Comment: Effective June 11, 2019 [...] Winn MD HEMATOLOGY ORDERABLES Performing Organization Address City/[facility]/ZIP Code Phon e Number [address] (ABNORMAL) CRP, acute inflammation (12/01/2019 [...] Winn MD CHEMISTRY ORDERABLES Performing Organization Address City/[facility]/ZIP Code Phon e Number [address] ABORH Recheck Status (12/01/2019 3:55 AM EDT) [facility] Method Time Signature ABORH Recheck Order Placed [facility] ABORH Type Complete [facility] LABORATORY Specimen Anatomical Collection Method Collection Time Receive d Time (Source) Location / / Volume Laterality Blood specimen 12/01/2019 3:55 AM 020 4:15 (specimen) EDT AM EDT Resulting Agency Comment Spec In Lab Lewis Gee MD BLOOD BANK ORDERABLES Performing Organization Address City/[facility]/[place] [address] Antibody screen (12/01/2019 3:55 AM EDT) Patholo gist Method Time Signature Ab Screen Negative [facility] LABORATORY Expires at 12/04/2019 [facility] [id number] on: [facility] Specimen Anatomical Collection Method Collection Time Receive d Time (Source) Location / / Volume Laterality Blood specimen 12/01/2019 3:55 AM 020 4:15 (specimen) EDT AM EDT Resulting Agency Comment Spec In Lab Lewis Gee MD BLOOD BANK ORDERABLES Performing Organization Address City/[facility]/[place] [address] ABO/Rh Typing (12/01/2019 3:55 AM EDT) athologist Signature ABORh Type AB Pos [facility] Specimen Anatomical Collection Method Collection Time Receive d Time (Source) Location / / Volume Laterality Blood specimen 12/01/2019 3:55 AM 020 4:15 (specimen) EDT AM EDT Resulting Agency Comment Spec In Lab Lewis Gee MD BLOOD BANK ORDERABLES Performing Organization Address City/[facility] [place] [address] (ABNORMAL) Troponin (12/01/2019 3:55 AM EDT) athologist Signature Troponin-T 4.35 (H) 0.00 - [facility] 0.00 ng/mL [facility] Comment: result rechecked-slw The 99th percentile for Troponin T is le ss than 0.01 ng/mL, any detectable cTnT concentration using this assay should be considered elevated. According to the third universal definit ion of myocardial infarction the following criteria with a clinical prese ntation consistent with acute myocardial ischemia meets the diagnosis for a myocardial infarction (RI). Detection of a rise and/or fall of [...] additional sample may be indicated. Reference: Third Jerome Definition of Myocardial Infarction. Journal of the [place] [employer] 2012;60:1581-98 Specimen Anatomical Collection Method Collection Time Receive d Time (Source) Location / / Volume Laterality Blood specimen 12/01/2019 3:55 AM 020 4:00 (specimen) EDT AM EDT Resulting Agency Comment Spec In Lab Gretchen Yoon MD CHEMISTRY ORDERABLES Performing Organization Address City/State/ZIP Code Phon e Number [address] Magnesium (12/01/2019 3:55 AM EDT) P athologist Signature Magnesium 0.96 0.69 - 1.07 [facility] mmol/L [facility] Specimen Anatomical Collection Method Collection Time Receive d Time (Source) Location / / Volume Laterality Blood specimen 12/01/2019 3:55 AM 020 4:00 (specimen) EDT AM EDT Resulting Agency Comment Spec In Lab Gretchen Yoon MD CHEMISTRY ORDERABLES Performing Organization Address City/State/[place] [address] (ABNORMAL) BMP w/fasting Glucose (12/01/2019 3:55 AM EDT) P athologist Signature Glucose 148 (H) 65 - 99 [facility] Fasting mg/dL [facility] Comment: ?Fasting* Glucose Interpretive C [...] of body mass or the acutely ill. [email or web address] eGFR 91 >=60 mL/min/1.73 m?? [facility] Comment: The eGFR was calculated using the CKD-EP I equation. As with all creatinine based estimates of kidney function, eGFR values calculated with the CKD-EPI equation are not accurate in patients wi th acute kidney failure, extremes of body mass or the acutely ill. [email or web address] [email or web address] Specimen Anatomical Collection Method Collection Time Receive d Time (Source) Location / / Volume Laterality Blood specimen 12/01/2019 3:55 AM 020 4:00 (specimen) EDT AM EDT Resulting Agency Comment Spec In Lab Gretchen Yoon MD CHEMISTRY ORDERABLES Performing Organization Address City/State/ZIP Code Phon e Number [address] (ABNORMAL) Hemogram (12/01/2019 3:55 AM EDT) Analysis Performed At Patho logist Time Signature WBC 11.0 (H) 4.0 - 9.5 [facility] LAB[facility]ATORY RBC 3.46 (L) 4.58 - [place] DOV 5.54 [facility] x10(6)/[facility] LABORATORY Hemoglobin 10.2 (L) 13.7 - [facility] 16.5 gm/dL [facility] Hematocrit 31.2 (L) 40.5 - [facility] 48.5 % [facility] MCV 90.2 82.9 - [facility] 93.1 [facility] LABORATORY MCH 29.5 27.5 - [place] DOV 32.1 pg [facility]ORY MCHC 32.7 32.0 - [place] DOV 35.7 gm/dL [facility] Platelets 98 (L) 145 - 357 [facility] x10(3)/[facility] LABORATORY RDWSD 47.9 (H) 36.0 - [facility] DOV 45.0 [facility] LABORATORY RDWCV 14.6 (H) 11.4 - [facility] DOV 13.8 % [facility] LABORATORY MPV 12.3 7.6 - 12.9 [facility] nRBC % Auto 0.0 % [facility] nRBC Abs Auto 0.000 0.000 - [place] DOV 0.000 [facility] x10(3)/[facility] LABORATORY Specimen Anatomical Collection Method Collection Time Receive d Time (Source) Location / / Volume Laterality Blood specimen 12/01/2019 3:55 AM 020 4:00 (specimen) EDT AM EDT Resulting Agency Comment Spec In Lab Gretchen Yoon MD HEMATOLOGY ORDERABLES Performing Organization Address City/State/ZIP Code Phon e Number [address] (ABNORMAL) BLOOD GAS 2 ARTERIAL (11/30/2019 10:39 PM EDT) Analysis Performed At Patho logist Time Signature pH Art 7.45 7.35 - [facility] 7.45 [facility] pCO2 Art 23 (L) 35 - 45 [facility] mmHg [facility] pO2 Art 76 (L) 85 - 104 [facility] mmHg [facility] HCO3 Art 15.3 (L) 20.0 - [facility] 26.0 [facility] mmol/L [facility] LABORATORY BE Art -8.7 (L) -3.0 - 3.0 [facility] mmol/L [facility] Hgb Blood Gas 11.7 (L) 13.7 - [facility] 16.5 gm/dL [facility] O2HB Art 94.2 94.0 - [facility] 97.0 % [facility] COHB Art 0.5 % [facility] Comment: Nonsmokers: 0.5-1.5% COHB Smokers: Variable, but usually less than 10% Toxic: 20-30% COHB Lethal: Greater than 60% COHB METHB Art 0.6 <=1.5 % [facility] LABORATORY Na Whole Blood 133 (L) 135 - 145 mmol/L [facility] LABORAT[facility] K Whole Blood 3.8 3.5 [...] Whole Bld 120 65 - 199 mg/dL [facility] Comment: Diabetes: >=200 mg/dL plus symp toms. Lactate WB 0.8 0.5 - 2.2 mmol/L [facility]ORAT[facility] FIO2 Art 100 % [facility] PF Ratio Art 76 [facility] Specimen Anatomical Collection Method Collection Time Receive d Time (Source) Location / / Volume Laterality Blood specimen 11/30/2019 10:39 0 (specimen) PM EDT 10:39 PM EDT Gretchen Yoon MD CHEMISTRY ORDERABLES Performing Organization Address City/[facility]/[place]IP [place] [address] EKG 12 Lead (11/30/2019 [...] (Bezet) Calculated P 12 degrees MUSE SYSTEM Webster Calculated R 19 degrees MUSE SYSTEM Webster Calculated T -47 degrees MUSE SYSTEM Webster INTERPRETATION Sinus rhythm with Premature supraventricular complexes [...] Yoon MD ECG ORDERABLES Performing Organization Address City/[facility]/ZIP Code Phon e Number MUSE SYSTEM (ABNORMAL) Urinalysis Microscopic Exam (11/30/2019 8:40 PM EDT) P athologist Signature RBC UA 27 (H) 0 - 3 /HPF [facility] WBC UA 4 (H) 0 - 3 /HPF [facility] Hyaline Cast 3 (H) 0 - 2 /LPF [facility] LABORATORY Specimen (Source) Anatomical Collection Method Collection Time Re ceived Time Location / / Volume Laterality Urine specimen 11/30/2019 8:40 11/30/2019 obtained via PM EDT 10:51 PM EDT indwelling urinary catheter (specimen) Resulting Agency Comment Spec In Lab Rossy Winn MD URINE ORDERABLES Performing Organization Address City/State/[place] [address] (ABNORMAL) Urinalysis with reflex Culture (11/30/2019 8:40 PM EDT) Patholo gist Method Time Signature Glucose UA Negative Negative [facility] mg/dL [facility] Protein UA Negative Negative [facility] mg/dL [facility] Bilirubin UA Negative Negative [facility] mg/dL [facility] Comment: Clinical correlation required for [...] [facility] Nitrite UA Negative Negative [facility] LABORATORY Leukocytes UA Trace (A) Negative [facility] LABORATORY Appearance UA Clear Clear [facility] LABORATORY Spec [place] UA 1.026 1.006 - 1.030 [facility] LABORATORY Color UA Yellow Yellow [facility] LABORATORY Culture Reflexed No [facility] LABORATORY Specimen (Source) Anatomical Collection Method Collection Time Re ceived Time Location / / Volume Laterality Urine specimen 11/30/2019 8:40 11/30/2019 obtained via PM EDT 10:51 PM EDT indwelling urinary catheter (specimen) Resulting Agency Comment Spec In Lab Gretchen Yoon MD URINE ORDERABLES Performing Organization Address City/[facility]/[place] [address] [facility] [address] (ABNORMAL) pro-Brain Natriuretic Peptide (11/30/2019 8:30 PM EDT) P athologist Signature ProBNP 2,802 (H) <=125 [facility] pg/mL [facility] Specimen Anatomical Collection Method Collection Time Receive d Time (Source) Location / / Volume Laterality Blood specimen Venous Draw / 11/30/2019 8:30 PM 2019 8:36 (specimen) Unknown EDT PM EDT Resulting Agency Comment Spec In Lab Rossy Winn MD CHEMISTRY ORDERABLES Performing Organization Address City/[facility]/[place] [address] (ABNORMAL) Troponin (11/30/2019 8:30 PM EDT) athologist Signature Troponin-T 5.04 (H) 0.00 - [place] MONAE 0.00 ng/mL [facility] Comment: The 99th percentile for Troponin T is le ss than 0.01 ng/mL, any detectable cTnT concentration using this assay should be considered elevated. According to the third universal definit ion of myocardial infarction the following criteria with a clinical prese ntation consistent with acute myocardial ischemia meets the diagnosis for a myocardial infarction (RI). Detection of a rise and/or fall of [...] additional sample may be indicated. Reference: Third Jerome Definition of Myocardial Infarction. Journal of the [place] [employer] 2012;60:1581-98 Specimen Anatomical Collection Method Collection Time Receive d Time (Source) Location / / Volume Laterality Blood specimen Venous Draw / 11/30/2019 8:30 PM 2019 8:36 (specimen) Unknown EDT PM EDT Resulting Agency Comment Spec In Lab Rossy Winn MD CHEMISTRY ORDERABLES Performing Organization Address City/[facility]/ZIP Code Phon e Number [place] [address] Magnesium (11/30/2019 8:30 PM EDT) athologist Signature Magnesium 0.79 0.69 - 1.07 [facility] mmol/L [facility] Specimen Anatomical Collection Method Collection Time Receive d Time (Source) Location / / Volume Laterality Blood specimen 11/30/2019 8:30 PM 020 8:35 (specimen) EDT PM EDT Resulting Agency Comment Spec In Lab Gretchen Yoon MD CHEMISTRY ORDERABLES Performing Organization Address City/State/ZIP Code Phon e Number [address] (ABNORMAL) Basic Metabolic Panel (non-fasting) (11/30/2019 8:30 PM EDT) athologist Signature Glucose Lvl 132 65 - 199 [facility] mg/dL [facility] Comment: Diabetes: >=200 mg/dL plus [...] of body mass or the acutely ill. [email or web address] [email or web address] eGFR 93 >=60 mL/min/1.73 m?? [facility] Comment: The eGFR was calculated using the CKD-EP I equation. As with all creatinine based estimates of kidney function, eGFR values calculated with the CKD-EPI equation are not accurate in patients wi th acute kidney failure, extremes of body mass or the acutely ill. [email or web address] Specimen Anatomical Collection Method Collection Time Receive d Time (Source) Location / / Volume Laterality Blood specimen 11/30/2019 8:30 PM 020 8:35 (specimen) EDT PM EDT Resulting Agency Comment Spec In Lab Gretchen Yoon MD CHEMISTRY ORDERABLES Performing Organization Address [facility] Phon e Number [address] Blood culture (11/30/2019 8:30 PM EDT) Patholo gist Method Time Signature Blood Culture No growth MELINA MONAE at 5 days. [facility] Specimen Anatomical Collection Method Collection Time Receive d Time (Source) Location / / Volume Laterality Blood specimen 11/30/2019 8:30 PM 020 9:40 (specimen) EDT PM EDT Comment: L HAND Resulting Agency Comment Spec In Lab Gretchen Yoon MD MICROBIOLOGY - BLOOD ORDERAB LES Performing Organization Address [facility] [place] [address] Blood culture (11/30/2019 8:30 PM EDT) Patholo gist Method Time Signature Blood Culture No growth MELINA WHITTENCOCK at 5 days. [facility] Specimen Anatomical Collection Method Collection Time Receive d Time (Source) Location / / Volume Laterality Blood specimen 11/30/2019 8:30 PM 020 9:40 (specimen) EDT PM EDT Comment: R HAND Resulting Agency Comment Spec In Lab Gretchen Yoon MD MICROBIOLOGY - BLOOD ORDERAB LES Performing Organization Address City/[facility] [place] [address] XR Chest One View [...] Time Signature pH Art 7.45 7.35 - [facility] 7.45 [facility] pCO2 Art 27 (L) 35 - 45 [facility] mmHg [facility] pO2 Art 68 (L) 85 - 104 [facility] mmHg [facility] HCO3 Art 18.2 (L) 20.0 - [facility] 26.0 [facility] mmol/L [facility] LABORATORY BE Art -5.9 (L) -3.0 - 3.0 [facility] mmol/L [facility] Hgb Blood Gas 12.4 (L) 13.7 - [facility] 16.5 gm/dL [facility] O2HB Art 93.1 (L) 94.0 - [facility] 97.0 % [facility] COHB Art 0.8 % [facility] Comment: Nonsmokers: 0.5-1.5% COHB Smokers: Variable, but usually less than 10% Toxic: 20-30% COHB Lethal: Greater than 60% COHB METHB Art 0.4 <=1.5 % [facility] LABOR[facility]ORY Na Whole Blood 133 (L) 135 - 145 mmol/L [facility] K Whole Blood 3.6 3.5 [...] Whole Bld 121 65 - 199 mg/dL [facility] Comment: Diabetes: >=200 mg/dL plus symp toms. Lactate WB 1.2 0.5 - 2.2 mmol/L [facility] Flow Art 5.0 LPM [facility] Specimen Anatomical Collection Method Collection Time Receive d Time (Source) Location / / Volume Laterality Blood specimen 11/30/2019 8:09 PM 020 8:09 (specimen) EDT PM EDT Gretchen Yoon MD CHEMISTRY ORDERABLES Performing Organization Address City/State/[place] [address] Angiogram [place] (11/30/2019 4:36 PM EDT) Anatomical [...] For questions regarding this report, please contact [facility] number below. ? Electronically signed by: Angel Luis Barboza MD, [facility] ([phone]), at 11/30/2019 5:04 PM Narrative 11/30/2019 5:04 PM EDT EXAMINATION: CT HEAD WO CONTRAST (GENERIC), CT ANGIOGRAM [place] CLINICAL HISTORY: Headache, intracranial hemorrhage suspected F/U on known ICH - assessing for propaga tion TECHNIQUE: CT head performed without intravenous co ntrast administration. CT angiogram [place] 65 cc Omnipaque 350 administered [...] HEAD WO CONTRAST (GENERI C), CT ANGIOGRAM [place] CLINICAL HISTORY: Headache, intracranial hemorrhage suspected F/U on known ICH - assessing for propaga tion TECHNIQUE: CT head performed without intravenous co ntrast administration. CT angiogram [place] 65 cc Omnipaque 350 administered [...] For questions regarding this report, please contact th e number below. Gretchen Yoon MD IMG CT ORDERABLES CT Head wo Contrast (Generic) [...] CT HEAD WO CONTRAST (GENERIC), CT ANGIOGRAM [place] CLINICAL HISTORY: Headache, intracranial hemorrhage suspected F/U on known ICH - assessing for propaga tion TECHNIQUE: CT head performed without intravenous co ntrast administration. CT angiogram [place] 65 cc Omnipaque 350 administered [...] HEAD WO CONTRAST (GENERI C), CT ANGIOGRAM [place] CLINICAL HISTORY: Headache, intracranial hemorrhage suspected F/U on known ICH - assessing for propaga tion TECHNIQUE: CT head performed without intravenous co ntrast administration. CT angiogram [place] 65 cc Omnipaque 350 administered [...] Electronically signed by: Angel Luis Barboza MD, [facility] ([phone]), at 11/30/2019 5:04 PM Gretchen Yoon MD [...] 453 ms MUSE SYSTEM (Bezet) Calculated P Webster 52 degrees MUSE SYSTEM Calculated R Webster 5 degrees MUSE SYSTEM Calculated T Webster -60 degrees MUSE SYSTEM INTERPRETATION Sinus rhythm [...] EDT Procedure: ?Transthoracic Echocardiogram Patient: ?RITA HEIN H ? (Age): 1945(74y) Med Rec#: ? [id number] ?Sex: ?M ? Site Loc: ? DH ?Ht / Wt: ??178(cm)/64(kg) Pt. Loc: ?CCU ? BSA: ?1.8 Study Date: ?? 11/30/2019 ?Pt. Type: Inpatient Tape: ? Referring: LAHEYMICHAELJ Reading: Tello Mejia ([id number]) Director Of Special Events: Friend, Lolita Diagnosis: *ST elevation (STEMI) myocardial [...] Vmax ?0.58 ? m/sec ? MV deceleration [id number] ? m sec ? MV A-wave Vmax [...] ? Mid-Inferior ?Akinetic ? Mid-Inferoseptal ?Normal ? [place]-Septal ? Normal ? [place]-Anterior ? Normal ? [place]-Lateral ?Normal ? [place]-Inferior ? Hypokinetic ? [place]-Tip ?Normal ? This report has been electronically sign ed by: _ Tello Mejia MD ? 11/30/2019 12: 45:27 Images reviewed and interpretation [facility] Cardiac Ultrasound Laboratory Procedure Note Tello Mejia MD - 11/30/2019Formatti ng of this note might be different from the original. Procedure: Transthoracic Echocardiogram Patient: RITA Corcoran (Age): [birth year](74y) Med Rec#: [id number] Sex: M [facility] Loc[facility] Ht / Wt: 178(cm)/64(kg) Pt. Loc: U BSA: 1.8 Study Date: 11/30/2019 Pt. Type: Inpatie nt Tape: Referring: GILMER Reading: Tello Mejia ([id number]) Director Of Special Events: EveLolita Diagnosis: *ST elevation (STEMI) myocardial infarc tion [...] MV E-wave Vmax 0.58 m/sec MV deceleration [id number] msec MV A-wave Vmax 0.74 m/sec MV [...] Hypokinetic Mid-Posterolateral Hypokinetic Mid-Inferior Akinetic Mid-Inferoseptal Normal [place]-Septal Normal [place]-Anterior Normal [place]-Lateral Normal [place]-Inferior Hypokinetic [place]-Tip Normal This report has been electronically sign ed by: _ Tello Mejia MD 11/30/2019 12:45:27 Images reviewed and interpretation verif d [facility] Cardiac Ultrasound Laboratory Gretchen Yoon MD [...] For questions regarding this report, please contact [facility] number below. ? Electronically signed by: Angel Luis Barboza MD, [facility] ([phone]), at 11/30/2019 12:04 PM Narrative 11/30/2019 12:04 [...] ORDERABLES Magnesium (11/30/2019 8:30 AM EDT) athologist Signature Magnesium 0.88 0.69 - 1.07 [facility] mmol/[facility] LABORATORY Specimen Anatomical Collection Method Collection Time Receive d Time (Source) Location / / Volume Laterality Blood specimen Venous Draw / 11/30/2019 8:30 AM 2019 8:37 (specimen) Unknown EDT AM EDT Resulting Agency Comment Spec In Lab Rossy Winn MD CHEMISTRY ORDERABLES Performing Organization Address City/State/[place] [address] (ABNORMAL) CK (11/30/2019 8:30 AM EDT) athologist Signature CK, Total 1,645 (H) 0 - 200 [facility] unit/[facility] LAB[facility]ORY Specimen Anatomical Collection Method Collection Time Receive d Time (Source) Location / / Volume Laterality Blood specimen 11/30/2019 8:30 AM 020 8:32 (specimen) EDT AM EDT Resulting Agency Comment Spec In Lab Gretchen Yoon MD CHEMISTRY ORDERABLES Performing Organization Address City/[facility]/[place] [address] (ABNORMAL) Troponin (11/30/2019 8:30 AM EDT) athologist Signature Troponin-T 8.04 (H) 0.00 - MEL[place] MONAE 0.00 ng/mL [facility] Comment: result rechecked-rancho The 99th percentile for Troponin T is le ss than 0.01 ng/mL, any detectable cTnT concentration using this assay should be considered elevated. According to the third universal definit ion of myocardial infarction the following criteria with a clinical prese ntation consistent with acute myocardial ischemia meets the diagnosis for a myocardial infarction (RI). Detection of a rise and/or fall of [...] additional sample may be indicated. Reference: Third Jerome Definition of Myocardial Infarction. Journal of the [place] College [employer]iology 2012;60:1581-98 Specimen Anatomical Collection Method Collection Time Receive d Time (Source) Location / / Volume Laterality Blood specimen 11/30/2019 8:30 AM 020 8:32 (specimen) EDT AM EDT Resulting Agency Comment Spec In Lab Gretchen Yoon MD CHEMISTRY ORDERABLES Performing Organization Address City/State/ZIP Code Phon e [place] [address] EKG 12 Lead (11/30/2019 7:57 AM EDT) Component Value Ref Range Test Analysis Performed Pathologis t Method Time At Signature Ventricular rate 64 BPM MUSE SYSTEM Atrial Rate 64 BPM MUSE SYSTEM P-R Interval 132 ms MUSE SYSTEM QRS Duration 78 ms MUSE SYSTEM Q-T Interval 420 ms MUSE SYSTEM QTC Calculated 433 ms MUSE SYSTEM (Bezet) Calculated P Webster 28 degrees MUSE SYSTEM Calculated R Webster 7 degrees MUSE SYSTEM Calculated T Webster -33 degrees MUSE SYSTEM INTERPRETATION Sinus rhythm [...] Signature Glucose 147 (H) 65 - 99 [facility] Fasting mg/dL [facility] Comment: ?Fasting* Glucose Interpretive C [...] of body mass or the acutely ill. [email or web address] eGFR 98 >=60 mL/min/1.73 m?? [facility] Comment: The eGFR was calculated using the CKD-EP I equation. As with all creatinine based estimates of kidney function, eGFR values calculated with the CKD-EPI equation are not accurate in patients wi th acute kidney failure, extremes of body mass or the acutely ill. [email or web address] Specimen Anatomical Collection Method Collection Time Receive d Time (Source) Location / / Volume Laterality Blood specimen 11/30/2019 2:15 AM 020 2:29 (specimen) EDT AM EDT Resulting Agency Comment Spec In Lab Gretchen Yoon MD CHEMISTRY ORDERABLES Performing Organization Address City/State/[place] [address] (ABNORMAL) Hemogram (11/30/2019 2:15 AM EDT) Analysis Performed At Patho logist Time Signature WBC 11.2 (H) 4.0 - 9.5 [facility] x10(3)/[facility] LABORATORY RBC 3.83 (L) 4.58 - [facility] 5.54 [facility] x10(6)/[facility] LABORATORY Hemoglobin 11.4 (L) 13.7 - [facility] 16.5 gm/dL [facility] Hematocrit 35.2 (L) 40.5 - MELINA WHITTENCOCK 48.5 % [facility] MCV 91.9 82.9 - M[place]INA DOV 93.1 [facility] LABORATORY MCH 29.8 27.5 - M[place]INA MARSHDOV 32.1 pg [facility] MCHC 32.4 32.0 - MEILNA MARSHDOV 35.7 gm/dL [facility] Platelets 122 (L) 145 - 357 [facility] x10(3)/[facility] LABORATORY RDWSD 49.8 (H) 36.0 - MELINA MARSHDOV 45.0 [facility] LABORATORY RDWCV 14.8 (H) 11.4 - [facility] DOV 13.8 % [facility] LABORATORY MPV 12.1 7.6 - 12.9 [facility] LABORATORY nRBC % Auto 0.0 % [facility] nRBC Abs Auto 0.000 0.000 - [facility] 0.000 [facility] x10(3)/[facility] LABORATORY Specimen Anatomical Collection Method Collection Time Receive d Time (Source) Location / / Volume Laterality Blood specimen 11/30/2019 2:15 AM 020 2:29 (specimen) EDT AM EDT Resulting Agency Comment Spec In Lab Gretchen Yoon MD HEMATOLOGY ORDERABLES Performing Organization Address City/[facility]/ZIP Code Phon e Number [address] (ABNORMAL) CK (11/30/2019 2:15 AM EDT) athologist [facility] CK, Total 1,969 (H) 0 - 200 [facility]ORY Specimen Anatomical Collection Method Collection Time Receive d Time (Source) Location / / Volume Laterality Blood specimen 11/30/2019 2:15 AM 020 2:29 (specimen) EDT AM EDT Resulting Agency Comment Spec In Lab Gretchen Yoon MD CHEMISTRY ORDERABLES Performing Organization Address City/[facility]/ZIP [facility] Phon e Number [address] (ABNORMAL) Troponin (11/30/2019 2:15 AM EDT) athologist Signature Troponin-T 11.73 (H) 0.00 - MELINA MONAE 0.00 ng/mL [facility] Comment: result rechecked-slw The 99th percentile for Troponin T is le ss than 0.01 ng/mL, any detectable cTnT concentration using this assay should be considered elevated. According to the third universal definit ion of myocardial infarction the following criteria with a clinical prese ntation consistent with acute myocardial ischemia meets the diagnosis for a myocardial infarction (RI). Detection of a rise and/or fall of [...] additional sample may be indicated. Reference: Third Jerome Definition of Myocardial Infarction. Journal of the [...] meets the diagnosis for a myocardial infarction (RI). Detection of a rise and/or fall of [...] additional sample may be indicated. Reference: Third Jerome Definition of Myocardial Infarction. Journal of the [...] Yoon MD CHEMISTRY ORDERABLES Performing Organization Address City/[facility]/ZIP Code Phon e Number [address] LDL Cholesterol, Direct (11/30/2019 2:15 AM EDT) P athologist Signature LDL Chol 156 mg/dL [facility] LABORATORY Comment: Lowest Risk: <100 mg/dL Lower Risk: 100-129 mg/dL Borderline High Risk: 130-159 mg/dL High Risk: 160-189 mg/dL Very High Risk: >zx=422 mg/dL Specimen Anatomical Collection Method Collection Time Receive d Time (Source) Location / / Volume Laterality Blood specimen 11/30/2019 2:15 AM 020 2:29 (specimen) EDT AM EDT Resulting Agency Comment Spec In Lab Gretchen Yoon MD CHEMISTRY ORDERABLES Performing Organization Address City/[facility]/ZIP [facility] [place] [address] (ABNORMAL) Hemoglobin A1c (11/30/2019 2:15 [...] Mellitus, Diabetes Care 2013; 36: Suppl. 1, S67-80 Est Avg Gluc See note mg/dL [facility] [...] with hemoglobinopathies. Additional resources are available on ADA website. Kiko CARBAJAL, Jenn J, Silas R, et al. ??Tr anslating the A1C assay into estimated average glucose values. ??Diabetes Care 2008:31(8):8443-6081. Specimen Anatomical Collection Method Collection Time Receive d Time (Source) Location / / Volume Laterality Blood specimen 11/30/2019 2:15 AM 020 2:29 (specimen) EDT AM EDT Resulting Agency Comment Spec In Lab Gretchen Yoon MD CHEMISTRY ORDERABLES Performing Organization Address City/State/[place] [address] Lipid Panel (Reflex Direct LDL) (11/30/2019 2:15 AM EDT) athologist Signature Chol, Total 195 mg/dL [facility] LABORATORY Comment: Lower Risk: <200 mg/dL Average Risk: 200-239 mg/dL Higher Risk: >no=795 mg/dL Triglycerides 93 mg/dL [facility] LABORATORY Comment: Average Risk/Lower Risk: <150 mg/dL Borderline High Risk: 150-199 mg/dL High Risk: 200-499 mg/dL Very High Risk: >ph=704 mg/dL HDL 32 mg/dL [facility] LABORATORY Comment: Males: ?? Higher Risk: <40 mg/dL Females: ?? HIgher Risk: <50 mg/dL LDL Cholesterol 144 mg/dL [facility] LABORATORY Comment: Lowest Risk: <100 mg/dL Lower Risk: 100-129 mg/dL Borderline High Risk: 130-159 mg/dL High Risk: 160-189 mg/dL Very High Risk: >is=888 mg/dL Chol/HDL Ratio 6.1 ratio [facility] LABORATORY Lipid Interpretation See Note [facility] LABORATORY Comment: Lipid management should be guided by a p atient? s ASCVD risk, goals and preferences. ACC/AHA Guidelines recommend high intens ity statin if clinical ASCVD or LDL greater than or equal to 190 mg/dL. [email or web address] Adults aged 40-75 with LDL 70-189 mg/dL should have their 10 year ASCVD risk estimated with the ACC/AHA ASCVD risk es timator http://tools.acc.org/BTDJE-Pird-Zqwkladj r/ Statin should be discussed if risk [...] Organization Address City/State/ZIP Code Phon e Number [address] (ABNORMAL) CK (11/29/2019 6:35 PM EDT) athologist Signature CK, Total 2,780 (H) 0 - 200 [facility] unit/L [facility] LABORATORY Specimen Anatomical Collection Method Collection Time Receive d Time (Source) Location / / Volume Laterality Blood specimen 11/29/2019 6:35 PM 020 6:53 (specimen) EDT PM EDT Resulting Agency Comment Spec In Lab Gretchen Yoon MD CHEMISTRY ORDERABLES Performing Organization Address City/[facility]/[place] [address] (ABNORMAL) Troponin (11/29/2019 6:35 PM EDT) athologist Signature Troponin-T 17.60 (H) 0.00 [facility]mL [facility] LABORATORY Comment: result rechecked-az The 99th percentile for Troponin T is le ss than 0.01 ng/mL, any detectable cTnT concentration using this assay should be considered elevated. According to the third universal definit ion of myocardial infarction the following criteria with a clinical prese ntation consistent with acute myocardial ischemia meets the diagnosis for a myocardial infarction (RI). Detection of a rise and/or fall of [...] additional sample may be indicated. Reference: Third Jerome Definition of Myocardial Infarction. Journal of the [place] College [employer] 2012;60:1581-98 Specimen Anatomical Collection Method Collection Time Receive d Time (Source) Location / / Volume Laterality Blood specimen 11/29/2019 6:35 PM 020 6:53 (specimen) EDT PM EDT Resulting Agency Comment Spec In Lab Gretchen Yoon MD CHEMISTRY ORDERABLES Performing Organization Address City/[facility]/[place] [address] EKG 12 Lead (11/29/2019 3:58 PM EDT) [facility] gist Method Time Signature Ventricular rate 73 BPM MUSE SYSTEM Atrial Rate 73 BPM MUSE SYSTEM P-R Interval 152 ms MUSE SYSTEM QRS Duration 84 ms MUSE SYSTEM Q-T Interval 404 ms MUSE SYSTEM QTC Calculated 445 ms MUSE SYSTEM (Bezet) Calculated P Webster 50 degrees MUSE SYSTEM Calculated R Webster -4 degrees MUSE SYSTEM Calculated T Webster 19 degrees MUSE SYSTEM INTERPRETATION Sinus rhythm [...] Concepcion MD ECG ORDERABLES Performing Organization Address City/[facility]/ZIP Code Phon e Number MUSE SYSTEM XR [...] HISTORY: stemi (as entered by [facility] provider in the order requisition) TECHNIQUE: Portable [...] lung apex is excluded from the imaged [id number]. IMPRESSION: 1. ??New right internal jugular pulmonar [...] lung apex is excluded from the imaged [id number]. Procedure Note Estefani Harris MD - 11/29/2019Formattin [...] lung apex is excluded from the imaged [id number]. IMPRESSION 1. New right internal jugular pulmonary [...] (ABNORMAL) Differential, Automated (11/29/2019 2:32 PM EDT) [facility] Method Time Signature Neutrophils % 83.8 % [facility] LABORATORY Neutr Abs (ANC) 12.12 (H) 1.70 - [facility] 6.10 [facility] x10(3)/[facility] LABORATORY Lymphocytes % 9.1 % [facility] LABORATORY Lymphocytes Abs 1.3 0.9 - 3.2 [facility] x10(3)/[facility] LABORATORY Monocytes % 6.2 % [facility] LABORATORY Monocyte Abs 0.9 0.3 - 0.9 [facility] x10(3)/[facility] LABORATORY Eosinophils % 0.0 % [facility] LABORATORY Eosinophils Abs 0.0 0.0 - 0.4 [facility] x10(3)/[facility] LABORATORY Basophils % 0.3 % [facility] LABORATORY Basophils Abs 0.0 0.0 - 0.1 [facility] x10(3)/[facility] LABORATORY Immature Gran % 0.60 % NORTH [...] Gran Abs 0.08 (H) 0.00 - 0.04 x10(3)/[facility] LABORATORY Specimen Anatomical Collection Method Collection Time Receive d Time (Source) Location / / Volume Laterality Blood specimen 11/29/2019 2:32 PM 020 2:55 (specimen) EDT PM EDT Resulting Agency Comment Spec In Lab Darrell Glasgow MD HEMATOLOGY ORDERABLES Performing Organization Address City/State/[place] [address] (ABNORMAL) Hemogram (11/29/2019 2:32 PM EDT) Analysis Performed At Patho logist Time Signature WBC 14.5 (H) 4.0 - 9.5 [facility] x10(3)/[facility] LABORATORY RBC 4.53 (L) 4.58 - [facility] DOV 5.54 [facility] x10(6)/[facility] LABORATORY Hemoglobin 13.1 (L) 13.7 - [facility] 16.[facility] gm/dL [facility] LABORATORY Hematocrit 40.8 40.5 - [facility] 48.5 % [facility] LABORATORY MCV 90.1 82.9 - [facility] 93.1 [facility] LABORATORY MCH 28.9 27.5 - [facility] DOV 32.1 pg [facility] LABORATORY MCHC 32.1 32.0 - [facility] DOV 35.7 gm/dL [facility] LABORATORY Platelets 184 145 - 357 [facility] x10(3)/[facility] LABORATORY RDWSD 47.8 (H) 36.0 - [facility] DOV 45.0 [facility] LABORATORY RDWCV 14.5 (H) 11.4 - [facility] DOV 13.8 % [facility] LABORATORY MPV 11.9 7.6 - 12.9 [facility] LABORATORY nRBC % Auto 0.0 % [facility] LABORATORY nRBC Abs Auto 0.000 0.000 - [facility] 0.000 [facility] x10(3)/[facility] LABORATORY Specimen Anatomical Collection Method Collection Time Receive d Time (Source) Location / / Volume Laterality Blood specimen 11/29/2019 2:32 PM 020 2:55 (specimen) EDT PM EDT Resulting Agency Comment Spec In Lab Darrell Glasgow MD HEMATOLOGY ORDERABLES Performing Organization Address City/[facility]/ZIP Code Phon e Number [address] (ABNORMAL) CK (11/29/2019 2:32 PM EDT) athologist Signature CK, Total 3,282 (H) 0 - 200 [facility] unit/L [facility] LABORATORY Specimen Anatomical Collection Method Collection Time Receive d Time (Source) Location / / Volume Laterality Blood specimen 11/29/2019 2:32 PM 020 2:32 (specimen) EDT PM EDT Resulting Agency Comment Spec In Lab Gretchen Yoon MD CHEMISTRY ORDERABLES Performing Organization Address City/[facility]/ZIP Code Phon e Number [address] (ABNORMAL) Troponin (11/29/2019 2:32 PM EDT) athologist Signature Troponin-T 20.33 (H) 0.00 - [facility] 0.00 ng/mL [facility] LABORATORY Comment: The 99th percentile for Troponin T is le ss than 0.01 ng/mL, any detectable cTnT concentration using this assay should be considered elevated. According to the third universal definit ion of myocardial infarction the following criteria with a clinical prese ntation consistent with acute myocardial ischemia meets the diagnosis for a myocardial infarction (RI). Detection of a rise and/or fall of [...] additional sample may be indicated. Reference: Third Jerome Definition of Myocardial Infarction. Journal of the [place] College of [employer]iology 2012;60:1581-98 Specimen Anatomical Collection Method Collection Time Receive d Time (Source) Location / / Volume Laterality Blood specimen 11/29/2019 2:32 PM 020 2:32 (specimen) EDT PM EDT Resulting Agency Comment Spec In Lab Gretchen Yoon MD CHEMISTRY ORDERABLES Performing Organization Address [facility] [place] [address] (ABNORMAL) APTT (11/29/2019 2:32 PM EDT) athologist Signature PTT 114 25 - 37 [facility] (Critical) [facility] LABORATORY Comment: Critical Result called by [...] Yoon MD HEMATOLOGY ORDERABLES Performing Organization Address City/[facility]/[place] [address] (ABNORMAL) Prothrombin Time (11/29/2019 2:32 PM EDT) P athologist Signature PT 13.5 (H) 9.4 - 12.5 [facility] LABORATORY INR 1.2 [facility] [...] Yoon MD HEMATOLOGY ORDERABLES Performing Organization Address City/[facility]/[place] [address] (ABNORMAL) Hepatic Function Panel (11/29/2019 2:32 PM EDT) P athologist Signature Total Protein 6.3 6.1 - 8.0 [facility] DOV gm/dL [facility] LABORATORY Albumin 3.6 3.2 - 5.2 [facility] D[facility] gm/dL [facility] LABORATORY AST 257 (H) 0 - 39 [facility] D[facility] unit/L [facility] LABORATORY ALT 50 0 - 55 [facility] unit/L [facility] LABORATORY Alk Phos 84 40 - 130 [facility] unit/L [facility] LABORATORY Total 0.3 0.2 - 1.3 [facility] Bilirubin mg/dL [facility] LABORATORY Bili, Direct 0.1 0.0 - 0.3 [facility] D[facility] mg/dL [facility] LABORATORY Specimen Anatomical Collection Method Collection Time Receive d Time (Source) Location / / Volume Laterality Blood specimen 11/29/2019 2:32 PM 020 2:32 (specimen) EDT PM EDT Resulting Agency Comment Spec In Lab Gretchen Yoon MD CHEMISTRY ORDERABLES Performing Organization Address City/[facility]/[place] [address] (ABNORMAL) pro-Brain Natriuretic Peptide (11/29/2019 2:32 PM EDT) P athologist Signature ProBNP 272 (H) <=125 pg/mL [facility] LABORATORY Specimen Anatomical Collection Method Collection Time Receive d Time (Source) Location / / Volume Laterality Blood specimen 11/29/2019 2:32 PM 020 2:32 (specimen) EDT PM EDT Resulting Agency Comment Spec In Lab Gretchen Yoon MD CHEMISTRY ORDERABLES Performing Organization Address City/[facility]/ZIP Code Phon e Number [address] Magnesium (11/29/2019 2:32 PM EDT) athologist Signature Magnesium 0.76 0.69 - 1.07 [facility] mmol/L [facility] LABORATORY Specimen Anatomical Collection Method Collection Time Receive d Time (Source) Location / / Volume Laterality Blood specimen 11/29/2019 2:32 PM 020 2:32 (specimen) EDT PM EDT Resulting Agency Comment Spec In Lab Gretchen Yoon MD CHEMISTRY ORDERABLES Performing Organization Address City/[facility]/[place] [address] (ABNORMAL) Basic Metabolic Panel (non-fasting) (11/29/2019 2:32 PM EDT) athologist Signature Glucose Lvl 149 65 - 199 [facility] mg/dL [facility] LABORATORY Comment: Diabetes: >=200 mg/dL plus [...] of body mass or the acutely ill. [email or web address] eGFR 93 >=60 mL/min/1.73 m?? [facility] LABORATORY Comment: The eGFR was calculated using the CKD-EP I equation. As with all creatinine based estimates of kidney function, eGFR values calculated with the CKD-EPI equation are not accurate in patients wi th acute kidney failure, extremes of body mass or the acutely ill. [email or web address] Specimen Anatomical Collection Method Collection Time Receive d Time (Source) Location / / Volume Laterality Blood specimen 11/29/2019 2:32 PM 020 2:32 (specimen) EDT PM EDT Resulting Agency Comment Spec In Lab Gretchen Yoon MD CHEMISTRY ORDERABLES Performing Organization Address City/State/ZIP Code Phon e Number [place] [id number] EKG 12 Lead (11/29/2019 11:38 AM EDT) [facility] gist Method Time Signature Ventricular rate 60 BPM MUSE SYSTEM Atrial Rate 60 BPM MUSE SYSTEM P-R Interval 140 ms MUSE SYSTEM QRS Duration 86 ms MUSE SYSTEM Q-T Interval 474 ms MUSE SYSTEM QTC Calculated 474 ms MUSE SYSTEM (Bezet) Calculated P Webster 48 degrees MUSE SYSTEM Calculated R Webster 14 degrees MUSE SYSTEM Calculated T Webster 58 degrees MUSE SYSTEM INTERPRETATION Normal sinus rhythm MUSE SYSTEM Possible Inferior infarct (cited on or before 29-NOV-2019) Abnormal ECG When compared with ECG of 29-NOV-2019 09:01, Sinus rhythm has replaced Junctional rhythm Serial changes of evolving Inferior infarct Present Confirmed by MD Roberto, Tello Crowell (1949) on 11/29/2019 1:38:0 6 PM Specimen Anatomical Collection Method Collection Time Receive d Time (Source) Location / / Volume Laterality 11/29/2019 11:38 11/29/2019 1:38 AM EDT PM EDT Gretchen Yoon MD ECG ORDERABLES Performing Organization Address City/State/ZIP Code Phon e Number MUSE SYSTEM CARDIAC CATHETERIZATION (11/29/2019 11:15 AM EDT) Anatomical Region Laterality Modality Other Specimen (Source) Anatomical Location Collection Method / Collectio n Time Received Time / Laterality Volume Narrative 11/30/2019 1:09 PM EDT ?[facility] ? Cardiac Cathete rization/Intervention Report ? Patient Name: Salinas, Angel Luis H. ? Procedure Date: 11/29/2019 ? A #: [id number] ? Primary Physician: Gretchen Yoon ? Case #: [id number] ? File Name: [id number] ? Catheterization Order Number: [id number] ? [facility] ? Final Report [place], [place] ? Patient Name: ? Angel Luis Salinas ? ID#: ?[id number] ? : ?1945 ? Procedure Date: ? [...] procedure was Emergent. 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 ?Recommended anti-platelet/anti- thrombotic regimen: ?Continue aspirin 81 mg daily fo r indefinitely. ?Continue clopidogrel 75 mg marco a y for 12 months then stop. ?These recommendations are made at the time of the intervention. Patient ?and provider preferences or a c hanging clinical situation may require ?modification of this regimen. C onsult [facility] Interventional Cardiology for ?questions. ? Conclusions: ?* [...] different from the original. [facility] Cardiac Catheterization/Intervention Re port Patient Name: Angel Luis Salinas Procedure Date: 11/29/2019 A #: [id number] Primary Physician: Gretchen Yoon Case #: [id number] File Name: [id number] Catheterization Order Number: [id number] [facility] Final Report [place], [place] Patient Name: Angel Luis Salinas ID#: [id number] : 1945 Procedure Date: November 29, [...] e was Emergent. 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 The final TI RI flow was 2. Distal 90% Thrombectomy and [...] this intervention was 10%. The final TI RI flow was 2. 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 Recommended anti-platelet/anti-thrombot ic regimen: Continue aspirin 81 mg daily for indefi nitely. Continue clopidogrel 75 mg daily for 12 months then stop. These recommendations are made at the t loyda of the intervention. Patient and provider preferences or a changing clinical situation may require modification of this regimen. Consult [facility] Interventional Cardiology for [...] Signature POC pH 7.33 (L) 7.35 - [facility] 7.45 [facility] LABORATORY POC PCO2 33 (L) 35 - 45 [facility] mmHg [facility] LABORATORY POC PO2 56 (L) 85 - 104 [facility] LABORATORY POC Base Excess -8.0 (L) -3.0 - 3.0 [facility] K mmol/L [facility] LABORATORY POC HCO3 17.4 (L) 20.0 - [facility] 26.0 [facility] POC Sodium 137 135 - 145 [facility] mmol/L [facility] LABORATORY POC Potassium 3.6 3.5 - 5.0 [facility] mmol/L [facility] LABORATORY POC Ionized Ca 1.15 1.15 - [facility] 1.33 [facility] LAB[facility] POC Hematocrit 37.0 (L) 40.0 - [facility] 51.0 % [facility] LABORATORY POC Calc Hgb 12.6 (L) 13.7 - [facility] 17.5 gm/dL [facility] LABORATORY Comment: The calculation of hemoglobin f rom hematocrit assumes a normal MCHC. POC Bgas Loc CC LAB [facility] LABORATORY Specimen Anatomical Collection Method Collection Time Receive d Time (Source) Location / / Volume Laterality Blood specimen 11/29/2019 9:17 AM 020 7:35 (specimen) EDT AM EDT Gretchen Yoon MD CHEMISTRY ORDERABLES Performing Organization Address City/State/[place] [address] EKG 12 Lead (11/29/2019 9:01 AM EDT) Component Value Ref Range Test Analysis Performed Pathologis t Method Time At Signature Ventricular rate 80 BPM MUSE SYSTEM Atrial Rate 79 BPM MUSE SYSTEM QRS Duration 94 ms MUSE SYSTEM Q-T Interval 436 ms MUSE SYSTEM QTC Calculated 502 ms MUSE SYSTEM (Bezet) Calculated R Webster 54 degrees MUSE SYSTEM Calculated T Webster 80 degrees MUSE SYSTEM INTERPRETATION Normal sinus rhythm MUSE SYSTEM Inferior infarct , possibly acute Prolonged QT * ACUTE RI ?? Consider right ventricular involvement in acute [...] to 33.3 mL/hr), Intravenous, CONTINUOUS, Starting on Marceline 12/07/19 at 1315, Until Sun12/08/19 at 1203, [...] 150 mg, Intravenous, ONCE, 1 dose, On Marceline 12/07/19 at 1315, Warning Vesicant/Irritant Medication , [...] 20 mg, Intravenous, ONCE, 1 dose, On 12/01/19 at 1015, STAT furosemide (LASIX) injection 20 [...] PROTOCOL, Starting on 12/06/19 at 0926, Until 12/08/19 at 0901, [...] Intravenous, ONCE PRN, 1 dose, Starting on Marceline 11/30/19 at 1636, Until Marceline 11/30/19 at 1636, Per Protocol, Warning Vesicant/Irritant [...] mL/hr 250 mL/hr, Intravenous, CONTINUOUS, Starting on Marceline 12/07/19 at 0145, Until Marceline 12/07/19 at 0239 levoFLOXacin (LEVAQUIN) 750 mg in New Bag 11/30/2019 11:03 PM EDT 750 mg 100 mL/hr dextrose 5% 150 mL 750 mg, Intravenous, at 100 mL/hr, EVERY 24 HOURS, First dose on Marceline 11/30/19 at 2300, Until Discontinued, Routine, Indication [...] 2 g, Intravenous, ONCE, 1 dose, On 12/07/19 at 1330, Administer over 120 Minutes, Minimum [...] dose, Starting on 12/07/19 at 1226, Until 12/07/19 at 1241, Amaya Anderson: cabinet override metoprolol [...] 25 mg, Oral, ONCE, 1 dose, On Sun12/04/19 at 1415, DO NOT CRUSH OR OPEN, [...] 2 mg, Intravenous, ONCE, 1 dose, On 11/30/19 at 2345, Routine morphine 2 mg/mL injection syringe 2 mg Given 12/01/2019 4:30 AM EDT 2 mg 2 mg, Intravenous, ONCE, 1 dose, On 12/01/19 at 0445, Routine nicotine (NICODERM CQ) 14 [...] mcg/min (0-60 mL/hr), Intravenous, CONTINUOUS, Starting on 11/30/19 at 2200, Until 12/02/19 at 0924, Titrate to angina pain 3/10 [...] PRN, Starting on 11/30/19 at 2017, Until Sun12/08/19 at 1811, [...] 40 mEq, Oral, ONCE, 1 dose, On 12/03/19 at 0645, 20 mEq tablet may be [...] tablet 1,000 Units 0954 (Given - Provider: Aamya Anderson RN) 0824 (Given - Provider: Amaya Anderson RN) 0925 (Given - Provider: Amaya Anderson RN) 1,000 Units, Oral, DAILY, First dose on Sun11/29/19 at 1330, Until Discontinued, 40 units is equivalent to 1 mcg of cholecalciferol., Routine clopidogreL (Plavix) tablet 75 mg 0955 (Given - Provider: Rebecca Anderson RN) 0824 (Given - Provider: Amaya Anderson RN) 0925 (Given - Provider: Amaya Anderson RN) 75 mg, Oral, DAILY, First dose on Sun at 0900, Until Discontinued, Recovery (Recovery-Hospital Unit), Routine colchicine (Colcrys) tablet 0.6 mg (CANCELED) 0954 (Gi lizett - Provider: Amaya Anderson RN) 0823 (Given - Provider: Amaya Anderson RN) 0.6 [...] ONCE, 1 dose, 12/06/19 at 0515, Ad tool builder over 120 Minutes magnesium sulfate 2 g [...] XL (Toprol-XL) tablet 50 mg (COMP LETED) 122 (Given - Provider: Amaya Anderson RN) 50 [...] Anderson RN) Transdermal, DAILY, First dose on 12/01/19 at [...] Bentley, NIURKA) 0-8,000 Units, Intravenous, BOLUS PER BELÉN ELAINE PROTOCOL, Starting 12/06/19 at 0926, Until 12/08/19 [...] RN) 0230 (Given - Provider: Russell Ventura , NIURKA)1354 (Given - Provider: Amaya Anderson RN) 20 [...] patch), Transdermal, DAILY, Fir st dose on Marceline 11/30/19 at 1615, Until Discontinued, Routine And [...] Oral, EVERY 4 HOURS PRN, Startin g Marceline 11/30/19 at 2017, Until Sun12/08/19 at 181, hypokalemia
Administer for serum potassium (mMol/L) of 3.9 - 4 See instructions for Potassium Protocol in online policies.
Routine Or potassium chloride ER (K-Dur/Klor-Con) tablet 40 mEqJump to med 40 mEq, Oral, EVERY 4 HOURS PRN, Startin g Marceline 11/30/19 at 2016, Until Sun12/08/19 at 1811, hypokalemia
Administer for serum potassium (mMol/L) of 3.6 - 3.8 See instructions for Potassium Protocol in online policies.
Routine documented in this encounter Care Teams Finance Broker Relationship Specialty Start Date End Date France Lam MD PCP - General 05/02/13 02/04/20 [address] [place] [address] documented as of this encounter
--- OUTSIDE RECORDS SUMMARY | 2022-05-09 11:14 | XMS_ITS | Encounter Summary ---
:1945 Author Organization [facility] [place] [address] Care Team Providers Name Role Phone France Lam MD Primary Care Provider Encounter Details Date Type Department Care Team Description 11/30/2019 Orders Only Cardiology [facility] [place] [address] Social History Tobacco Use Types Packs/Day Years Used Date Current Every Day Smoker Cigars 0.5 Sex Assigned at Date Recorded Not on file documented as of this encounter Plan of Treatment Upcoming Encounters Date Type Specialty Care Team Description 06/30/2022 Office Visit Endocrinology Alan Terrell MD [facility] ENDOCRINOLOGY [place], [place] [address] (Wo rk) documented as of [...] fajardo ? (Age): 1945(74y) Med Rec#: ? [id number] ?Sex: ?M ? Site Loc: ? Ht / Wt: ??(cm)/ (kg) ? Pt. Loc: ? Study Date: ?? 11/29/2019 ?Pt. Type: Tape: ? Referring: Faustino Garduno Reading: Dawit Mejia ([id number]) Communication Arts Lecturer: [employer] Liner Worker: Cedric Eric ([id number]) Interpreting Fellow: Cedric Eric ([phone]) Diagnosis: SUMMARY: 1. Limited bedside echocardiogram perfor med by citizen participation specialist furniture finisher helper for hypotension following inferior STEMI . 2. [...] ? Mid-Inferior ?Akinetic ? Mid-Inferoseptal ?Hypokinetic ? [place]-Septal ? Normal ? [place]-Anterior ? Normal ? [place]-Lateral ?Normal ? [place]-Inferior ? Hypokinetic ? [place]-Tip ?Normal ? This report has been electronically sign ed by: _ Dawit Mejia MD ? 11/30/2019 12: 53:59 Images reviewed [facility] Procedure Note Dawit Mejia MD - 11/30/2019Formatti ng of this note might be different from the original. Procedure: Transthoracic Echocardiogram Patient: domenica ACOSTA(Age): [age]y) Med Rec#: [id number] Sex: M Site Loc: Ht / Wt: (cm)/ (kg) Pt. Loc: Study Date: 11/29/2019 Pt. Type: Tape: Referring: Faustino Garduno Reading: Dawit Mejia ([id number]) Communication Arts Lecturer: [employer] Liner Worker: Cedric Eric ([id number]) Interpreting Fellow: Cedric Eric ([phone]) Diagnosis: SUMMARY: 1. Limited bedside echocardiogram perfor med by citizen participation specialist furniture finisher helper for hypotension following inferior STEMI . 2. [...] Normal Mid-Posterolateral Akinetic Mid-Inferior Akinetic Mid-Inferoseptal Hypokinetic [place]-Septal Normal [place]-Anterior Normal [place]-Lateral Normal [place]-Inferior Hypokinetic [place]-Tip Normal This report has been electronically sign ed by: _ Dawit Mejia MD 11/30/2019 12:53:59 Images reviewed and interpretation ver ied [facility] Cardiac Ultrasound Laboratory Unknown ECHO ORDERABLES documented in this encounter Visit Diagnoses Not on filedocumented in this encounter Care Teams Mapping Specialist Relationship Specialty Start Date End Date France Lam MD PCP - General 05/02/13 02/04/20 [address] [place] [address] documented as of this encounter
--- OUTSIDE RECORDS SUMMARY | 2022-05-09 11:15 | XMS_ITS | Encounter Summary ---
:1945 [place] [address] Care Team Providers Name Role Phone France Lam MD Primary Care Provider Reason for Visit Auth/Cert Specialty Diagnoses / Procedures Referred By Contact Refer red To Contact Diagnoses STEMI (ST elevation myocardial infarction) STEMI Procedures CARDIAC CATHETERIZATION Referral ID Status Reason Start Date Expiration Date Visits Requ ested Visits Authorized [id number] 1 1 Encounter Details Date Type Department Care Team Description 11/29/2019 Surgery Unit Control Worker Gretchen Corral, CARDIAC CATHETERIZATION [facility] [place] [address] [place] [id number] [phone] (Wo rk) Social History Tobacco Use Types [...] Luis Salinas Patient Age: 74 y.o. Language: Eritrean Race: White Ethnicity: Not nor Admit date: [...] months on: antiplatelet therapy at discretion of brake engineer - Repeat TTE in 3 months to reassess LV function - Repeat BMP in 1-2 weeks given recent start lisinopril - Referred to lipid clinic for consideration of PCSK-9 inhibitor given STEMI with intolerance of statins - Started on amiodarone this admission for recurrent rapid atrial flutter with rates ~170, recommendcontinued assessment of necessity of rhythm control strategy with brake engineer - Amiodarone monitoring recommendations as below [...] please contact your inpatient physician through the [facility] Nick Setter . Issues after hours and on weekends [...] and Compazine. He was transferred directly to [facility] via [facility] for further management. Patient had an emergent PCI with 3 MACARIO stents placed to his RCA, with mild disease of LCX (report pending) at [facility]. He was found to be persistently hypotensive requiring Levo up to 10mcg/min. He was transferred to [facility] after the cath procedure. Bedside RHC showed [...] ip as described above. On arrival at [facility] he was taken for cardiac cath where [...] priority for the procedure was Emergent. [facility] [...] number below. Electronically signed by: Estefani Harris [facility] ([phone]), at 11/29/2019 4:[address] Head wo Contrast (Generic) (Exam End: 11/30/2019 10:41 AM) Impression Focal hemorrhage with small amount of adjacent edema projecting in the region of the left optic tract. Thank you for letting us participate in the care of this patient. For questions regarding this report, please contact the number below. Electronically signed by: Angel Luis Barboza MD, [facility] ([phone]), at 11/30/2019 12:[address] Head wo [...] [facility] ([phone]), at 11/30/2019 5:[address] Angiogram [place] [facility] [place] (Exam End: 11/30/2019 4:36 PM) Impression Head CT: Stable hemorrhage in the region of the left optic tract. CTA: Negative exam. No abnormal vasculature in the area of hemorrhage. Thank you for letting us participate in the care of this patient. For questions regarding this report, please contact the number below. Electronically signed by: Angel Luis Barboza MD, [facility] ([phone]), at 11/30/2019 5:04 PM MRI Brain wo [...] Electronically signed by: Angel Luis Barboza MD, [facility] ([phone]), at 12/01/2019 8:02 PM XR Chest One [...] number below. Electronically signed by: Merari Collins [facility] ([phone]), at 12/01/2019 3:53 PM XR Chest One [...] number below. Electronically signed by: Roselyn Luciano [facility] ([phone]), at 12/04/2019 6:16 PM MRI Brain wwo Contrast (Generic) (Exam End: 12/05/2019 7:59 PM) Impression No significant interval change. Thank you for letting us participate in the care of this patient. For questions regarding this report, please contact the number below. Electronically signed by: Merari Collins [facility] ([phone]), at 12/05/2019 10:[address] Head wo [...] number below. Electronically signed by: Merari Collins [facility] ([phone]), at 12/06/2019 10:06 PM Pending Studies and Lab Data: N/A Discharge Conditions/Prognosis: stable Discharge to: home Updated Allergies/ADRs: Allergies Allergen Reactions ??? Penicillins Pt doesn't remember reaction ??? Qutaazy-Isn-Kxq Reductase Inhibitors Stiff neck, upset stomach, back [...] medications at another hospital and then at [facility] you had a stent placed in a [...] FOR ONE MONTH AND THEN STOP. Your brake engineer may tell you to start this medication again after one year. Clopidogrel (Plavix) 75 mg daily - This medication will help prevent clots from forming in your blood, which will help protect the stent that was placed in your heart vessel. TAKE THIS FOR ONE YEAR ANDTHEN DISCUSS WITH YOUR BASKETBALL PLAYER WHETHER TO STOP. Amiodarone 400mg twice daily [...] follow up: Your primary care provider and brake engineer will manage your blood thinner (apixaban). You do not need lab monitoring of this medication. Diet: Please consume a healthy diet low in cholesterol Follow up Appointments: 12/10/2019 at 3:10PM with PCP Angel Luis Lott Future Appointments Date Time Provider Department Center 12/23/2019 1:30 PM Alfreda Salas APRN [facility] [id number] 12/26/2019 9:40 AM Merlin Sanchez MD [facility] CARD 4A [facility] 12/30/2019 3:40 PM Gretchen Yoon MD [address] Future Appointments and Orders Future Appointments and Orders Future Appointments Provider Department Dept Phone 12/23/2019 1:30 PM Alfreda Salas APRN Neurosurgery at [facility] Arrive at: Home [phone] Please do not come in for this visit. Your provider will call you at the number you provided. 12/26/2019 9:40 AM Merlin Sanchez MD Cardiology at [facility] Arrive at: Home [phone] Please do not come in for this visit. Your provider will call you at the number you provided. 12/30/2019 3:40 PM Gretchen Yoon MD Cardiology at [facility] Arrive at: Home [phone] Please do not come in for this visit. Your provider will call you at the number you provided. Future Orders Complete By Expires Referral to Cardiac Rehab [GPY137 Custom] As directed Process Instructions: If no progress note charted, please enter Clinical details in comments. Scheduling Instructions: Questions: My question or request is: STEMI. Cardiac rehab at [facility] Referral to [facility] [REF43 Custom] As directed Process Instructions: If no progress note charted, please enter Clinical details in comments. Scheduling Instructions: Questions: My question or request is: patient with inferior stemi with history of statin allergy (rash) - please evaluate for psck9 inhibitor. Referral to Home Health - at DISCHARGE [SPV4176 CPT(R)] As directed Process Instructions: Scheduling Instructions: Comments: DOCUMENTATION FOR VNA SERVICES PATIENT'S LOCATION: Angel Luis Corcoran [address] [address] (home) Glass Crusher's Name: Self In discussion with the attending physician, it is certified that this patient is under his/her care and that MD, or an ELECTRICAL PROSPECTING SUPERVISOR, TAXI DRIVER SUPERVISOR, or PA who is working directly with him/her, had a yloa-to-xeiv encounter that meets the physician ucji-hf-chpn encounter requirements with this patient on 12/07/2019. [...] for managing ADLs. HOME HEALTH CARE AGENCY: [facility], PHONE: [phone] FAX: [phone] Start of care: 24-48 hours after hospital [...] MD [address] / [place] [id number] All A agencies which cover the area of patient's residence have been reviewed, either verbally or in writing, and patient/family have chosen the home health care agency noted. Questions: Agency name and contact information: [facility] Patient location post discharge: Home What services are requested: Registered Nurse Physical Therapy Occupational Therapy Start date: Responsible MD post discharge contact info: PCP Your PCP: France Lam MD [phone] For questions regarding this document or issues relating to this hospitalization on the Cardiology Service, please contact your inpatient physician through the [facility] Nick Setter . Issues after hours and on weekends will be handled by the Road Oiling Truck Driver on-call. Patient Instructions: Neurology Your Diagnosis: Left [...] follow-up appointment in the neurology clinic at [facility]. See below for the appointment [...] 1:30 PM Alfreda Salas APRN Neurosurgery at [facility] Arrive at: Home [phone] Please do not come in for this visit. Your provider will call you at the number you provided. 12/26/2019 9:40 AM Merlin Sanchez MD Cardiology at [facility] Arrive at: Home [phone] Please do not come in for this visit. Your provider will call you at the number you provided. 12/30/2019 3:40 PM Gretchen Yoon MD Cardiology at [facility] Arrive at: Home [phone] Please do not come in for this visit. Your provider will call you at the number you provided. Future Orders Complete By Expires Referral to Cardiac Rehab [EJF032 Custom] As directed Process Instructions: If no progress note charted, please enter Clinical details in comments. Scheduling Instructions: Questions: My question or request is: STEMI. Cardiac rehab at [facility] Referral to [facility] [REF43 Custom] As directed Process Instructions: If no progress note charted, please enter Clinical details in comments. Scheduling Instructions: Questions: My question or request is: patient with inferior stemi with history of statin allergy (rash) - please evaluate for psck9 inhibitor. Referral to Home Health - at DISCHARGE [FLH5731 CPT(R)] As directed Process Instructions: Scheduling Instructions: Comments: DOCUMENTATION FOR VNA SERVICES PATIENT'S LOCATION: [address] [address] (home) Glass Crusher's Name: Self In discussion with the attending physician, it is certified that this patient is under his/her care and that MD, or an ELECTRICAL PROSPECTING SUPERVISOR, TAXI DRIVER SUPERVISOR, or PA who is working directly with him/her, had a cuzi-ch-wqqs encounter that meets the physician ypin-ep-dubz encounter requirements with this patient on 12/07/2019. [...] for managing ADLs. HOME HEALTH CARE AGENCY: [facility], PHONE: [phone] FAX: [phone] Start of care: 24-48 hours after hospital [...] MD [address] / [place] [address] All A agencies which cover the area of patient's residence have been reviewed, either verbally or in writing, and patient/family have chosen the home health care agency noted. Questions: Agency name and contact information: [facility] Patient location post discharge: Home What services are requested: Registered Nurse Physical Therapy Occupational Therapy Start date: Responsible MD post discharge contact info: PCP Discharge References/Attachments Atrial Fibrillation (Eritrean) Cardiac Rehabilitation (Eritrean) Heart Failure (Eritrean) Heart Failure: Limiting Sodium (Eritrean) Hemorrhagic Stroke: General Info (Eritrean) Smoking: Stopping (Eritrean) Stroke Rehabilitation: General Info (Eritrean) Pulmonary Embolism (Eritrean) Riki Stevens MD PGY-3, Internal Medicine Cardiology S2, #0090 Associated attestation - Paris Dodd MD - 12/09/2019 4:44 PM EDT Cardiology Attending Discharge Addendum I was the assigned attending brake engineer for this clinical encounter. For the [...] complications include novel onset, paroxysmal atrial fibrillation [[id number]: 5] & L-sided diplopia with potential hemineglect [...] My contact information: Paris Matt MD MPH [address], [place] [address] (office); Pager #[phone] Email: documented in this encounter Discharge Instructions Patient InstructionsFiRiki de jesus MD - 12/02/2019 9:56 AM EDT Images from the original note were not included. Why you were hospitalized: You had a heart attack. You received clot-busting medications at another hospital and then at [facility] you had a stent placed in a [...] FOR ONE MONTH AND THEN STOP. Your brake engineer may tell you to start this medication again after one year. Clopidogrel (Plavix) 75 mg daily - This medication will help prevent clots from forming in your blood, which will help protect the stent that was placed in your heart vessel. TAKE THIS FOR ONE YEAR ANDTHEN DISCUSS WITH YOUR BASKETBALL PLAYER WHETHER TO STOP. Amiodarone 400mg twice daily [...] follow up: Your primary care provider and brake engineer will manage your blood thinner (apixaban). You do not need lab monitoring of this medication. Diet: Please consume a healthy diet low in cholesterol Follow up Appointments: 12/10/2019 at 3:10PM with PCP Angel Luis Lott Future Appointments Date Time Provider Department Center 12/23/2019 1:30 PM Alfreda Salas APRN [facility] [id number] [facility] 12/26/2019 9:40 AM Merlin Sanchez MD [facility] CARD 4A [facility] 12/30/2019 3:40 PM Gretchen Yoon MD [facility] CARD 4A [facility] Future Appointments and Orders Future Appointments and Orders Future Appointments Provider Department Dept Phone 12/23/2019 1:30 PM Alfreda Salas APRN Neurosurgery at [facility] Arrive at: Home [phone] Please do not come in for this visit. Your provider will call you at the number you provided. 12/26/2019 9:40 AM Merlin Sanchez MD Cardiology at [facility] Arrive at: Home [phone] Please do not come in for this visit. Your provider will call you at the number you provided. 12/30/2019 3:40 PM Gretchen Yoon MD Cardiology at [facility] Arrive at: Home [phone] Please do not come in for this visit. Your provider will call you at the number you provided. Future Orders Complete By Expires Referral to Cardiac Rehab [[id number] Custom] As directed Process Instructions: If no progress note charted, please enter Clinical details in comments. Scheduling Instructions: Questions: My question or request is: STEMI. Cardiac rehab at [facility] Referral to [facility] [REF43 Custom] As directed Process Instructions: If no progress note charted, please enter Clinical details in comments. Scheduling Instructions: Questions: My question or request is: patient with inferior stemi with history of statin allergy (rash) - please evaluate for psck9 inhibitor. Referral to Home Health - at DISCHARGE [NPT5488 CPT(R)] As directed Process Instructions: Scheduling Instructions: Comments: DOCUMENTATION FOR VNA SERVICES PATIENT'S LOCATION: [address] [address] (home) Glass Crusher's Name: Self In discussion with the attending physician, it is certified that this patient is under his/her care and that MD, or an ELECTRICAL PROSPECTING SUPERVISOR, TAXI DRIVER SUPERVISOR, or PA who is working directly with him/her, had a vbsh-bc-uddb encounter that meets the physician ryar-iz-mush encounter requirements with this patient on 12/07/2019. [...] for managing ADLs. HOME HEALTH CARE AGENCY: [facility], PHONE: [phone] FAX: [phone] Start of care: 24-48 hours after hospital [...] MD [address] / [place] [address] All A agencies which cover the area of patient's residence have been reviewed, either verbally or in writing, and patient/family have chosen the home health care agency noted. Questions: Agency name and contact information: [facility] Patient location post discharge: Home What services are requested: Registered Nurse Physical Therapy Occupational Therapy Start date: Responsible MD post discharge contact info: PCP Your PCP: France Lam MD [phone] For questions regarding this document or issues relating to this hospitalization on the Cardiology Service, please contact your inpatient physician through the [facility] Nick Setter . Issues after hours and on weekends will be handled by the Road Oiling Truck Driver on-call. Patient Instructions: Neurology Your Diagnosis: Left [...] follow-up appointment in the neurology clinic at [facility]. See below for the appointment time. If you do not have an appointment, you will be called with a time/date for this appointment. ??? Primary Care Provider: Please follow up with your Primary Care Provider within one to 2 weeks ofdischarge. AttachmentsThe following attachments cannot be sent through Care Everywhere. Atrial Fibrillation (Eritrean)Cardiac Rehabilitation (Eritrean)Heart Failure (Eritrean)Heart Failure: Limiting Sodium (Eritrean)Hemorrhagic Stroke: General Info (Eritrean)Smoking: Stopping (Eritrean)Stroke Rehabilitation: General Info (Eritrean)Pulmonary Embolism (Eritrean)documented in this encounter Medications at Time of [...] consulted in the interim. Vikash Rodriguez Pager: [phone] Paris Dodd MD - 12/08/2019 8:57 AM [...] complications include novel onset, paroxysmal atrial fibrillation [UTT2CY4ZIHU: 5] & L-sided diplopia with potential hemineglect [...] consulted in the interim. Vikash Rodriguez Pager: [phone] Paris Dodd MD - 12/07/2019 9:55 AM [...] complications include novel onset, paroxysmal atrial fibrillation [JXH5PC2OIAR: 5] & L-sided diplopia with potential hemineglect [...] complications include novel onset, paroxysmal atrial fibrillation [JWY8TG5GLEU: 5] & L-sided diplopia with potential hemineglect [...] complications include novel onset, paroxysmal atrial fibrillation [PDD0WU4QBXO: 5] & L-sided diplopia with potential hemineglect [...] today; additional complications include paroxysmal atrial fibrillation [IWB2XT3ANLD: 4] c/b possible cardioembolic stroke, ICH from [...] length from neck/greatest diameter to back wall: LUXEMBOURGER 91, CAU 13: 19 mm CORTES 1, [...] a non-culprit artery. S/P DESx3 in the faybaljy-cv-kycqvc RCA. Aspiration thrombectomy performed, and integrellin bolus [...] complications include novel onset, paroxysmal atrial fibrillation [XJZ0GG5NBGH: 5] & L-sided diplopia with potential hemineglect [...] R occipital cardioembolic stroke #Paroxysmal Afib with MW0FNKKQ2U score of 5 #New segmental bilateral PEs [...] Glasgow MD PGY1, Internal Medicine Cardiology S2, #7549 Associated attestation - Paris Dodd MD - 12/05/2019 2:59 PM EDT I was the assigned attending brake engineer for this clinical encounter. For the [...] 12/04/2019 10:36 AM EDT Office of Care Management(OCM)/Converting Technician(CM)/Discharge Planning Service: Cardiology S2 team CM Bernie Alexander,RN,BSN,MA,ACM pgr [phone] Reviewed record and in Cardiology Rounds with MD team,CMs, quality assurance engineer, OPERATING SYSTEM PROGRAMMER. Pt is anticipated ready for d/c later [...] AD to his PCP and to any [facility] appt for each to have on file. [...] complications include novel onset, paroxysmal atrial fibrillation [UDZ1DV8MIAY: 4] & L-sided diplopia with potential hemineglect [...] a non-culprit artery. S/P DESx3 in the wmrfqwgq-sw-poiwcr RCA. Aspiration thrombectomy performed, and integrellin bolus [...] complications include novel onset, paroxysmal atrial fibrillation [CFW5RC5FLMF: 5] & L-sided diplopia with potential hemineglect [...] R occipital cardioembolic stroke #Paroxysmal Afib with XF0EQOEH6C score of 5 - No anticoagulation for [...] Glasgow MD PGY1, Internal Medicine Cardiology S2, #1382 I have seen the patient and reviewed [...] in my clinic. Gretchen Yoon MD Pager [phone] Derian Pascual RN - 12/03/2019 9:29 AM [...] Discharge: None Electronically signed: Derian Pascual RN, Converting Technician Pgr: [phone] 12/03/2019 9:29 AM Gretchen [...] complications include novel onset, paroxysmal atrial fibrillation [PCH4EU6DMBR: 4] & L-sided diplopia with potential hemineglect [...] a non-culprit artery. S/P DESx3 in the alqyhdhd-nj-iprafw RCA. Aspiration thrombectomy performed, and integrellin bolus [...] complications include novel onset, paroxysmal atrial fibrillation [TKJ3UK2YVVJ: 5] & L-sided diplopia with potential hemineglect [...] [facility] and [facility] with [facility]. Patient voiced strong will to quit smoking now, understood that we have resources available for help. Plan [P]: --Neurologic-- # Concern for Left-Sided Diplopia, r/o Hemineglect # Concern for CVA, last-known well 11/29/19 - MRI showed possible cardioembolic stroke #Afib with VI8FCZWM4G score of 5 - Stroke Team Consulted; [...] Anticoagulation/Arrhythmia # Novel Onset, Paroxsymal Atrial Fibrillation [TCB1NC1YULH: 5] - Hold off anticoagulation for at [...] w straight cath prn # Nutrition - [facility] Diet, 2g Na. -- Hematology/Oncology-- # Mild [...] Glasgow MD PGY1, Internal Medicine Cardiology S2, #7200 I have seen the patient and reviewed the resident's above history and I agree with the details as written. The assessment and plan were formulated in discussion with me and I agree with them as documented. Gretchen Yoon MD Pager [phone] Raul Hein RN - 12/03/2019 5:55 AM [...] applicable: CPG GOAL OUTCOME EVALUATION: ongoing Deepthi oRman MD - 12/02/2019 12:29 PM EDT Neurology [...] Negative mcL Appearance UA Clear Clear Spec [place] UA 1.026 1.006 - 1.030 Color UA [...] PGY3 Neurology Resident 12/01/2019 Vascular Neurology Pager [phone] Neurology Attending Attestation I evaluated the patient [...] documented. Deepthi Roman MD Vascular Neurology Standard [facility] Swallow Screen: This screen is to be [...] diet as medical provider deems appropriate. Consider FEEDER CATCHER consult for full evaluation and diet recommendations. [...] complications include novel onset, paroxysmal atrial fibrillation [KNH0GR7INCK: 4] & L-sided diplopia with potential hemineglect [...] a non-culprit artery. S/P DESx3 in the wgcrxlpk-bq-yzatqx RCA. Aspiration thrombectomy performed, and integrellin bolus [...] likely represents a benign hemangioma or venous sevreino. 3. Dental disease as detailed above. 4. [...] likely embolic Assessment [A]: Mr. Angel Luis Salnias is a 74 year old M with a PMH of PAD, HLD, Active Tobacco Use & HTN who was admitted for inferior STEMI [s/p MACARIO to RCA x3, residual LCx disease - non-culprit artery; s/p lytics] with clinical course complicated by RV failure manifesting as cardiogenic shock, for which ionotropic support to be initiated today; additional complications include novel onset, paroxysmal atrial fibrillation [MPE1MZ2EYEZ: 5] & L-sided diplopia with potential hemineglect [...] Anticoagulation/Arrhythmia # Novel Onset, Paroxsymal Atrial Fibrillation [VCV5ZS5AYHG: 5] - Hold off anticoagulation - pending [...] tamsulosin d/t low BP. # Nutrition - [facility] Diet -- Hematology/Oncology-- # Mild Thrombocytopenia, unclear [...] Glasgow MD PGY1, Internal Medicine Cardiology S2, #9061 I have seen the patient and reviewed [...] the ICU team. Gretchen Yoon MD Pager [phone] Natalia Claros APRN - 12/02/2019 8:38 AM [...] - We are signing off. Please page [phone] with any questions or concerns. For questions please call NSGY pager [phone] Natalia Claros APRN 12/02/2019 8:38 AM Clinical Documentation Improvement: Active Hospital Problems Diagnosis ??? Acute ST elevation myocardial infarction (STEMI) of inferior wall ??? Intracranial hemorrhage ??? Hyperlipidemia ??? Tobacco abuse ??? Claudication from peripheral vascular disease, left Resolved Hospital Problems No resolved problems to display. Tello Hsu, INSIDE UPHOLSTERER - 12/02/2019 2:06 AM EDT 12/01/192009 Oxygen [...] afternoon. Upon arrival back in [facility] placed on low flow NC at 4 [...] complications include novel onset, paroxysmal atrial fibrillation [[id number]: 4] & L-sided diplopia with potential hemineglect for which CVA evaluationto be pursued. Active Problems/Subjective: - 11/28: admitted for inferior STEMI, RV failure requiring pressor - got lytics, aspirin and plavix load, heparin gtt, and eptifibatide. 3 MACARIO stents to RCA. Tyler cath - low wedge & CVP so [...] a non-culprit artery. S/P DESx3 in the shdtoqna-nc-rthbtg RCA. Aspiration thrombectomy performed, and integrellin bolus [...] complications include novel onset, paroxysmal atrial fibrillation [[id number]: 4] & L-sided diplopia with potential hemineglect [...] Anticoagulation/Arrhythmia # Novel Onset, Paroxsymal Atrial Fibrillation [[id number]: 4] - Obtain: TTE - Pending CVA [...] tamsulosin d/t low BP. # Nutrition - [facility] Diet -- Hematology/Oncology-- # Mild Thrombocytopenia, unclear [...] MD, PGY1 PGY3, Internal Medicine Cardiology S2, #1004 I have seen the patient and reviewed [...] down the line. Gretchen Yoon MD Pager [phone] ?? Gretchen Yoon MD Pager [phone] Natalia Claros APRN - 12/01/2019 1:33 AM [...] per primary team For questions please call [email or web address] pager [phone] Natalia Claros APRN 12/01/2019 7:42 AM Clinical Documentation Improvement: Active Hospital Problems Diagnosis ??? Acute ST elevation myocardial infarction (STEMI) of inferior wall ??? Intracranial hemorrhage ??? Hyperlipidemia ??? Tobacco abuse ??? Claudication from peripheral vascular disease, left Resolved Hospital Problems No resolved problems to display. Tello Hsu, INSIDE UPHOLSTERER - 11/30/2019 8:44 PM EDT Respiratory Therapy [...] EDT Narrative:Visited in response to request for Agate Setter services. Pt was awake, alert, oriented and in bed. Assessment:Patient coping positively with stresses of illness/hospitalization at this time. Pt says that he is hoping to get better and pt is living with and has children and grandchildren. Pt haspurpose of life and has reason to get getter and to be with family. Outcome: Provided emotional and spiritual support and encouraging presence. Agate Setter services accepted.Conversation to build trusting relationship.Provided [...] complications include novel onset, paroxysmal atrial fibrillation [[id number]: 4] & L-sided diplopia with potential hemineglect for which CVA evaluationto be pursued. Active Problems/Subjective: - Overnight, CVP < 12 for which a total of 1 L IVF provided - Today AM, patient complains of subjectively reported, left-sided hemineglect with floaters and diplopia [see: exam]. - Otherwise, c/o neck pain 2/2 R IJ Tyler & L radial A line. Otherwise, denies [...] a non-culprit artery. S/P DESx3 in the knropyim-bk-oejmol RCA. Aspiration thrombectomy performed, and integrellin bolus [...] complications include novel onset, paroxysmal atrial fibrillation [[id number]: 4] & L-sided diplopia with potential hemineglect [...] Anticoagulation/Arrhythmia # Novel Onset, Paroxsymal Atrial Fibrillation [[id number]: 4] - Obtain: TTE to confirm rhythm [...] tamsulosin d/t low BP. # Nutrition - [facility] Diet -- Hematology/Oncology-- # Mild Thrombocytopenia, unclear [...] MD, PGY3 PGY3, Internal Medicine Cardiology S2, #2059 I have seen the patient and reviewed [...] down the line. Gretchen Yoon MD Pager [phone] Paola Capps RN - 11/30/2019 6:57 AM EDT PT still requiring 4 of levo, several attempts to titrate down (maps in 70;s) But maps would drop toless than 65. Pt very restless in bed Raising and lowering head denies pain . Integrillin stopped [id number] when bottle complete , urine tea colored [...] Responsible Attending: Gretchen Yoon MD PCP: France Lma MD PCP phone #: [phone] Decorating Consultant: None ID/Chief Complaint: Chest pain History of [...] and Compazine. He was transferred directly to [facility] via [facility] for further management. Patient had an emergent PCI with 3 MACARIO stents placed to his RCA, with mild disease of LCX (report pending) at [facility]. He was found to be persistently hypotensive requiring Levo up to 10mcg/min. He was transferred to [facility] after the cath procedure. Bedside RHC showed [...] ??? Penicillins Pt doesn't remember reaction ??? Guxdiee-Mbm-Wcf Reductase Inhibitors Stiff neck, upset stomach, back pain Family History: Mother: Father: [place] 2 Uncles with MIs Social History: Tobacco: Current active smoker 1 ppd. 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 Vitals: Last value Range [...] in the last 7068 hours. Invalid input(s): [id number] Heme: No results for input(s): LDH, HAPTOGLOBIN, [...] OSH prior to transfer and PCI at [facility]. Massive inferior STEMI with troponin level 20, currently in CVCC due to pressor requirement. BedsideRHC demonstrated evidence of elevated right sided heart failure, but his wedge was wnl. He received 1L bolus with improvement of his blood pressure and reduction of his pressor requirement. PLAN: Admit to Cardiology, S2 Team Pager # [phone] #Inferior STEMI, LEYLA 149 - Resolving EKG [...] inferior STEMI s/p lytic therapy. Transferred to [facility] and underwent successful PCI of the RCA with MACARIO x3. Gretchen Yoon MD Pager [phone] documented in this encounter Procedure Notes Juventino [...] to the planned procedure. Hand Hygiene: The rodding anode worker did perform hand hygiene prior to arterial [...] line-associated infection. Location of Procedure: [facility] Risks and Benefits: The risks and benefits [...] to the planned procedure. Hand Hygiene: The rodding anode worker did perform hand hygiene prior to line [...] side:right An Introducer (PSI Kit) was used. [place]. Insertion Side: right. Insertion Site: internal jugular. Catheter Details: Number of Lumens: 1 Catheter Type: heparin-coated The line was placed over a guidewire. Confirmation of Venous Placement: Venous placement was confirmed by transducing the pressure. Introducer Insertion Attempts: 1 Comments: Floating the Tyler-Mo Catheter Attempts: 1 Comments: Sterile Dressing: Biopatch [...] better pt back in SR. Please page [phone] for any more cares or concerns Plan [...] SOB. Pt in SR/SB (HR 40-88, non idvya 39) w/ int afib HR 120-140s. Call [...] complications include novel onset, paroxysmal atrial fibrillation [[id number]: 5]& L-sided diplopia with potential hemineglect for [...] Total Evaluation Minutes, Occupational Therapy: 10 Pager: [phone] FRANCINE Nuñez Occupational Therapy Rehabilitation Department Plan [...] complications include novel onset, paroxysmal atrial fibrillation [[id number]: 5] & L-sided diplopia with potential hemineglect [...] rails). Baseline Mobility: Independent. Drives. Shares manager sound with his , however her mobility is [...] plan as stated. Time IN / OUT: 5686-1714 Total Evaluation Minutes, Physical Therapy: 15(gtx1) Barbara Baldwin, PT Pager: [phone] Physical Therapy Inpatient Rehabilitation Department Plan of [...] he receives all he needs through the [facility]. Consult refused. Romain Tran, MSN, RN-, [place] Tobacco Security Operations Center Operator [facility] Pager #[phone] Plan of Care - Romain Oglesby OT [...] complications include novel onset, paroxysmal atrial fibrillation [[id number]: 5] & L-sided diplopia with potential hemineglect [...] and measurable assessment of functional outcome. Pager: [phone] ROMAIN OGLESBY OT 12/03/2019 Occupational Therapy Rehabilitation [...] in an outpatient cardiac rehabilitation program at [facility] was discussed. Patient agrees to a referral to this program. His has been a cardiac rehab patient at [facility] and he is familiar with the [...] complications include novel onset, paroxysmal atrial fibrillation [[id number]: 5] & L-sided diplopia with potential hemineglect [...] rails). Baseline Mobility: Independent. Drives. Shares manager sound with his , however her mobility is [...] in this evaluation. Time IN / OUT: 8117-3859 Total Evaluation Minutes, Physical Therapy: 25(eval, gtx1) Barbara Baldwin, PT Pager: [phone] Physical Therapy Inpatient Rehabilitation Department Consult Note [...] Please contact JOHANNA NOBLES RN on pager [phone] or the wound care team at [phone] or pager [phone] skin and wound care concerns or questions. [...] making law. Any patient receiving carspousee at [facility] must abide by [place] law. The hierarchy [...] (i) The agent with financial power of director revenue or a conservator appointed in accordance with [...] Insurance: N/A Prescription Coverage: Yes Preferred Pharmacy: [place], [place] Other: No Primary Care Provider: France Lam MD [phone] Patient/Caregiver Goals of Treatment: Return home Potential Needs for Transition of Care: Rehab/SNF: Based on discussions with the multi-disciplinary healthcare team, the patient would benefit from SNF level of care at discharge. ?? I have met with the patient to discuss discharge planning needs. I have provided the [facility], Officeof Care Management letter from the Personal Driver pertaining to rehab referrals. I have [...] patient have [facility] to: ?? [facility]. [facility] [address] [place] [address] ?? [address] , [place] [address] Note routed to Humidifier Maintenance Worker who will communicate referrals to facilities and provide any required information. Home Health: If therapies recommend home w/ VNA, the patient has been provided a list of Home Health Agencies/DME vendors which serve their preferred geographic area. A letter describing our affiliations was reviewed with them and they were educated about their right to choose where referrals are placed. Patient requests referral to [facility]. PHONE: [phone] FAX: [phone] Referral routed to the Humidifier Maintenance Worker for matching with agency/vendor and to provide [...] Insured w/ Medicare. Gets medications filled at [email or web address] in [place], [place]. Son to transport at discharge Plan: Discharge dispo depending on patient's physical recovery; SNF vs home w/ VNA. A member of the Care Management team will continue to monitor progress, follow for continuity of care and assist with transition of care planning. Derian Pascual RN Pager: [phone] Plan of Care - Estefani Encarnacion RN [...] ??? Penicillins Pt doesn't remember reaction ??? Skhlhkk-Cvm-Kmm Reductase Inhibitors Stiff neck, upset stomach, back [...] noncontrast head CT and CT of the [place] at 1600 hrs. We will [...] vision concerning for stroke. Patient presented to [facility] in transfer for a STEMI after presenting [...] ??? Penicillins Pt doesn't remember reaction ??? Kmuwirm-Xse-Wnu Reductase Inhibitors Stiff neck, upset stomach, back [...] file Gets together: Not on file Attends episcopal service: Not on file Active member of [...] L Elbow flexion 5/5 R, 5/5 L Violin Teacher LE: 5/5 R, 5/5 L Hip [...] PGY3 Neurology Resident 11/30/2019 Vascular Neurology Pager [phone] Standard [facility] Swallow Screen: This screen is to be [...] diet as medical provider deems appropriate. Consider FEEDER CATCHER consult for full evaluation and diet recommendations. [...] Afib admitted s/p thrombolysis and Cath-Stent to [facility] who developed R sided visual symptoms. [...] hours. Evan Mejia MD Department of Neurology [facility] Brief Op Note - Gretchen Yoon MD - 11/29/2019 8:38 PM EDT Brief Operative Note Patient Name: Angel Luis Salinas : [id number] MR#: [id number] Case Date: 11/29/2019 Surgeon: Surgeon(s) and Role: * Gretchen Yoon MD - Primary * Aidan Ward MD - Fellow Preoperative diagnosis: Inferior STEMI Postoperative diagnosis: Inferior STEMI Procedure(s) (LRB): CARDIAC CATHETERIZATION (N/A) Findings: Discrete 90% stenosis in the prox-to-mid RCA. Severe diffuse disease in the distal vessel. Discrete LCX stenosis in a non-culprit artery. S/P DESx3 in the muvupjpa-qj-wmtjei RCA. Aspiration thrombectomy performed, and integrellin bolus x2+ infusion. Nicardipine given during case due to intermittent sluggish flow. Complications: None documented in this encounter Plan of Treatment Upcoming Encounters Date Type Specialty Care Team Description 06/30/2022 Office Visit Endocrinology Alan Terrell MD [facility] DR ENDOCRINOLOGY [place], [place] [address] (Wo rk) Scheduled Referrals Name Type Priority [...] are i n the results section. CT [facility] [facility] [facility] [place] W STAT 11/30/2019 4:36 Res [...] athologist Signature Potassium 3.9 3.5 - 5.0 [facility] mmol/L [facility] Comment: Please note: ??Patients [...] Organization Address City/State/ZIP Code Phon e Number [place] [id number] (ABNORMAL) Hemogram (12/08/2019 12:39 PM EDT) Analysis Performed At Patho logist Time Signature WBC 9.9 (H) 4.0 - 9.5 [place] x10(3)/[facility] LABORATORY RBC 4.51 (L) 4.58 - [place] 5.54 [facility] x10(6)/[facility] LABORATORY Hemoglobin 13.0 (L) 13.7 - [place] 16.5 gm/dL [facility] Hematocrit 40.5 40.5 - [place] 48.5 % [facility] MCV 89.8 82.9 - [place] 93.1 [facility] LABORATORY MCH 28.8 27.5 - [place] 32.1 pg [facility] MCHC 32.1 32.0 - [place] 35.7 gm/dL [facility] Platelets 214 145 - 357 [place] x10(3)/[facility] LABORATORY RDWSD 49.2 (H) 36.0 - [place] 45.0 [facility] LABORATORY RDWCV 15.1 (H) 11.4 - [facility] 13.8 % [facility] MPV 12.1 7.6 - 12.9 [facility] OLIV[place] [facility] LABORATORY nRBC % Auto 0.0 % [facility] nRBC Abs Auto 0.000 0.000 - [place] 0.000 [facility] x10(3)/[facility] LABORATORY Specimen Anatomical Collection Method Collection Time Receive d Time (Source) Location / / Volume Laterality Blood specimen 12/08/2019 12:39 0 (specimen) PM EDT 12:47 PM EDT Resulting Agency Comment Spec In Lab Gretchen Yoon MD HEMATOLOGY ORDERABLES Performing Organization Address City/[facility]/ZIP Code Phon e Number [address] Hepatic Function Panel (12/08/2019 6:28 AM EDT) athologist Signature Total Protein 6.6 6.1 - 8.0 [place] gm/dL [facility] Albumin 3.2 3.2 - 5.2 [facility] [place] gm/dL [facility] AST 18 0 - 39 [facility] unit/L [facility] ALT 13 0 - 55 [facility] [place] unit/L [facility] Alk Phos 64 40 - 130 [facility] unit/L [facility] Total 0.4 0.2 - 1.3 [place] Bilirubin mg/dL [facility] Bili, Direct 0.1 0.0 - 0.3 [facility] [place] mg/dL [facility] Specimen Anatomical Collection Method Collection Time Receive d Time (Source) Location / / Volume Laterality Blood specimen Venous Draw / 12/08/2019 6:28 AM 2019 6:36 (specimen) Unknown EDT AM EDT Resulting Agency Comment Spec In Lab Riki Stevens MD CHEMISTRY ORDERABLES Performing Organization Address City/[facility]/ZIP Code Phon e Number [place], [place] [id number] [place] [address] (ABNORMAL) TSH (12/08/2019 6:28 AM EDT) P athologist Signature TSH 5.27 (H) 0.27 - 4.20 [place] mcIU/mL [facility] Specimen Anatomical Collection Method Collection Time Receive d Time (Source) Location / / Volume Laterality Blood specimen Venous Draw / 12/08/2019 6:28 AM 2019 6:36 (specimen) Unknown EDT AM EDT Resulting Agency Comment Spec In Lab Darrell Glasgow MD CHEMISTRY ORDERABLES Performing Organization Address City/[facility]/[place] [address] Potassium (12/08/2019 6:28 AM EDT) P athologist Signature Potassium 4.2 3.5 - 5.0 [facility] mmol/L [facility] Comment: Please note: ??Patients [...] Lagos MD CHEMISTRY ORDERABLES Performing Organization Address City/[facility]/[place] [address] (ABNORMAL) Differential, Automated (12/08/2019 12:43 AM EDT) Patholo gist Method Time Signature Neutrophils % 60.7 % [facility] Neutr Abs (ANC) 6.81 (H) 1.70 - [facility] 6.10 [facility] x10(3)/[facility] LABORATORY Lymphocytes % 23.4 % [facility] Lymphocytes Abs 2.6 0.9 - 3.2 [facility] x10(3)/[facility] LABORATORY Monocytes % 10.0 % [facility] Monocyte Abs 1.1 (H) 0.3 - 0.9 [facility] x10(3)/[facility] LABORATORY Eosinophils % 3.7 % [facility] Eosinophils Abs 0.4 0.0 - 0.4 [facility] x10(3)/[facility] LABORATORY Basophils % 1.2 % [facility] Basophils Abs 0.1 0.0 - 0.1 [facility] x10(3)/[facility] LABORATORY Immature Gran % 1.00 % ST. [...] Gran Abs 0.11 (H) 0.00 - 0.04 x10(3)/[facility] LABORATORY Specimen Anatomical Collection Method Collection Time Receive d Time (Source) Location / / Volume Laterality Blood specimen 12/08/2019 12:43 0 (specimen) AM EDT 12:52 AM EDT Resulting Agency Comment Spec In Lab Riki Stevens MD HEMATOLOGY ORDERABLES Performing Organization Address City/State/[place] [address] (ABNORMAL) Hemogram (12/08/2019 12:43 AM EDT) Analysis Performed At Patho logist Time Signature WBC 11.2 (H) 4.0 - 9.5 [facility] x10(3)/[facility] LABORATORY RBC 4.46 (L) 4.58 - [facility] 5.54 [facility] x10(6)/[facility] LABORATORY Hemoglobin 13.1 (L) 13.7 - [facility] 16.5 gm/dL [facility] Hematocrit 40.5 40.5 - [facility] OLIVIA 48.5 % [facility] MCV 90.8 82.9 - [facility] 93.1 [facility] LABORATORY MCH 29.4 27.5 - [facility] OLIVIA 32.1 pg [facility] MCHC 32.3 32.0 - [facility] 35.7 gm/dL [facility] Platelets 215 145 - 357 [facility] x10(3)/[facility] RDWSD 49.8 (H) 36.0 - [facility] OLIVIA 45.0 [facility] RDWCV 15.2 (H) 11.4 - [facility] OLIVIA 13.8 % [facility] MPV 12.3 7.6 - 12.9 [facility] LABORATORY nRBC % Auto 0.0 % [facility] nRBC Abs Auto 0.000 0.000 - [place] MARSH[facility] 0.000 [facility] x10(3)/[facility] LABORATORY Specimen Anatomical Collection Method Collection Time Receive d Time (Source) Location / / Volume Laterality Blood specimen 12/08/2019 12:43 0 (specimen) AM EDT 12:52 AM EDT Resulting Agency Comment Spec In Lab Riki Stevens MD HEMATOLOGY ORDERABLES Performing Organization Address City/State/ZIP Code Phon e Number [address] Magnesium (12/08/2019 12:43 AM EDT) P athologist Signature Magnesium 1.01 0.69 - 1.07 [facility] mmol/L [facility] Specimen Anatomical Collection Method Collection Time Receive d Time (Source) Location / / Volume Laterality Blood specimen 12/08/2019 12:43 0 (specimen) AM EDT 12:52 AM EDT Resulting Agency Comment Spec In Lab Gretchen Yoon MD CHEMISTRY ORDERABLES Performing Organization Address City/State/ZIP Code Phon e Number [address] (ABNORMAL) BMP w/fasting Glucose (12/08/2019 12:43 AM EDT) P athologist Signature Glucose 106 (H) 65 - 99 [facility] Fasting mg/dL [facility] Comment: ?Fasting* Glucose Interpretive C riteria Normal [...] of Diabetes Mellitus, Position Statement from the [place] [employer]. ??Diabete s Care, Volume 33, Supplement 1, Jul 2009 BUN 14 10 - 20 mg/dL [facility] Creatinine 1.16 0.80 - 1.50 mg/dL [facility] LABORATORY Sodium 134 (L) 135 - 145 mmol/L [facility] LABORATORY Potassium 4.0 3.5 - 5.0 mmol/L [facility] Comment: Please note: ??Patients [...] Gap 16 (H) 5 - 15 mmol/L [facility] Calcium 8.9 8.5 - 10.5 mg/dL [facility] LABORATORY Estimated GFR 62 >=60 mL/min/1.73 m?? [facility] Comment: The eGFR was calculated using the CKD-EP I equation. As with all creatinine based estimates of kidney function, eGFR values calculated with the CKD-EPI equation are not accurate in patients wi th acute kidney failure, extremes of body mass or the acutely ill. [email or web address] eGFR 72 >=60 mL/min/1.73 m?? [facility] Comment: The eGFR was calculated using the CKD-EP I equation. As with all creatinine based estimates of kidney function, eGFR values calculated with the CKD-EPI equation are not accurate in patients wi th acute kidney failure, extremes of body mass or the acutely ill. [email or web address] Specimen Anatomical Collection Method Collection Time Receive d Time (Source) Location / / Volume Laterality Blood specimen 12/08/2019 12:43 0 (specimen) AM EDT 12:52 AM EDT Resulting Agency Comment Spec In Lab Gretchen Yoon MD CHEMISTRY ORDERABLES Performing Organization Address [facility] [place] [address] Heparin (unfractionated) Level (12/08/2019 12:43 AM EDT) athologist Signature Heparin UFH 0.60 IU/mL [facility] LABORATORY Comment: Guidelines for therapeutic unfractionate d [...] HEMATOLOGY ORDERABLES Performing Organization Address [facility]/ZIP Code Phon e Number [place] [id number] [facility] LABORATORY Drive Potassium (12/07/2019 8:39 PM EDT) athologist Signature Potassium 4.1 3.5 - 5.0 [facility] mmol/L [facility] Comment: Please note: ??Patients [...] Lagos MD CHEMISTRY ORDERABLES Performing Organization Address City/[facility]/[place] [address] Potassium (12/07/2019 4:02 PM EDT) P athologist Signature Potassium 4.0 3.5 - 5.0 [facility] [place] mmol/L [facility] Comment: Please note: ??Patients [...] Yoon MD CHEMISTRY ORDERABLES Performing Organization Address City/[facility] [place] [address] (ABNORMAL) Hemogram (12/07/2019 4:02 PM EDT) Analysis Performed At Patho logist Time Signature WBC 17.4 (H) 4.0 - 9.5 MELINA OLIVIA x10(3)/[facility] LABORATORY RBC 4.58 4.58 - AnavexOLIVIA 5.54 [facility] x10(6)/[facility] LABORATORY Hemoglobin 13.5 (L) 13.7 - MELINA OLIVIA 16.5 gm/dL [facility] LABORATORY Hematocrit 40.8 40.5 - AnavexOLIVIA 48.5 % [facility] LABORATORY MCV 89.1 82.9 - MEILNA OLIVIA 93.1 fL [facility] LABORATORY MCH 29.5 27.5 - AnavexOLIVIA 32.1 [facility] LABORATORY MCHC 33.1 32.0 - MELINA MONAE 35.7 gm/dL [facility] LABORATORY Platelets 238 145 - 357 [facility] x10(3)/[facility] LABORATORY RDWSD 48.8 (H) 36.0 - MELINA OLIVIA 45.0 [facility] LABORATORY RDWCV 15.0 (H) 11.4 - [facility] 13.8 % [facility] LABORATORY MPV 12.2 7.6 - 12.9 [facility] LABORATORY nRBC % Auto 0.0 % [facility] LABORATORY nRBC Abs Auto 0.000 0.000 - MELINA OLIVIA 0.000 [facility] x10(3)/[facility] LABORATORY Specimen Anatomical Collection Method Collection Time Receive d Time (Source) Location / / Volume Laterality Blood specimen 12/07/2019 4:02 PM 020 4:08 (specimen) EDT PM EDT Resulting Agency Comment Spec In Lab Gretchen Yoon MD HEMATOLOGY ORDERABLES Performing Organization Address City/State/[place] [address] EKG 12 Lead (12/07/2019 [...] (Bezet) Calculated P -12 degrees MUSE SYSTEM Reserve Calculated R 10 degrees MUSE SYSTEM Reserve Calculated T -138 degrees MUSE SYSTEM Reserve INTERPRETATION Supraventricular tachycardia MUSE SYSTEM Low voltage [...] 5.0 [facility] mmol/L [facility] LABORATORY Comment: Please note: ??Patients [...] Address City/State/[place] [address] Heparin (unfractionated) Level (12/07/2019 11:43 AM EDT) athologist Signature Heparin UFH 0.59 IU/mL [facility] LABORATORY Comment: Guidelines for therapeutic unfractionate d [...] Lagos MD HEMATOLOGY ORDERABLES Performing Organization Address City/[facility]/[place] [address] Heparin (unfractionated) Level (12/07/2019 5:20 AM EDT) P athologist Signature Heparin UFH 0.53 IU/mL [facility] LABORATORY Comment: Guidelines for therapeutic unfractionate d [...] Lagos MD HEMATOLOGY ORDERABLES Performing Organization Address City/[facility]/[place] [address] [facility] [address]ORY [address] (ABNORMAL) Differential, Automated (12/07/2019 5:20 AM EDT) Patholo gist Method Time Signature Neutrophils % 62.4 % [facility] LABORATORY Neutr Abs (ANC) 5.46 1.70 - [facility] 6.10 [facility] x10(3)/[facility] LABORATORY Lymphocytes % 20.3 % [facility] LABORATORY Lymphocytes Abs 1.8 0.9 - 3.2 [facility] x10(3)/[facility] LABORATORY Monocytes % 11.0 % [facility] LABORATORY Monocyte Abs 1.0 (H) 0.3 - 0.9 [facility] x10(3)/[facility] LABORATORY Eosinophils % 4.5 % [facility] LABORATORY Eosinophils Abs 0.4 0.0 - 0.4 [facility] x10(3)/[facility] LABORATORY Basophils % 0.9 % [facility] LABORATORY Basophils Abs 0.1 0.0 - 0.1 [facility] x10(3)/[facility] LABORATORY Immature Gran % 0.90 % ST. [...] Gran Abs 0.08 (H) 0.00 - 0.04 x10(3)/[facility] LABORATORY Specimen Anatomical Collection Method Collection Time Receive d Time (Source) Location / / Volume Laterality Blood specimen 12/07/2019 5:20 AM 020 5:37 (specimen) EDT AM EDT Resulting Agency Comment Spec In Lab Riki Stevens MD HEMATOLOGY ORDERABLES Performing Organization Address City/State/[place] [address] (ABNORMAL) Hemogram (12/07/2019 5:20 AM EDT) Analysis Performed At Patho logist Time Signature WBC 8.7 4.0 - 9.5 [facility] x10(3)/[facility] LABORATORY RBC 4.20 (L) 4.58 - [facility] 5.54 [facility] x10(6)/[facility] LABORATORY Hemoglobin 12.3 (L) 13.7 - [facility] 16.5 gm/dL [facility] LABORATORY Hematocrit 37.4 (L) 40.5 - MELINA MONAE 48.5 % [facility] LABORATORY MCV 89.0 82.9 - MELINA MONAE 93.1 [facility] LABORATORY MCH 29.3 27.5 - MELINA VILLANUEVACK 32.1 pg [facility] LABORATORY MCHC 32.9 32.0 - MELINA MONAE 35.7 gm/dL [facility] LABORATORY Platelets 181 145 - 357 MELINA STARKE x10(3)/[facility] LABORATORY RDWSD 47.7 (H) 36.0 - MELINA MONAE 45.0 [facility] LABORATORY RDWCV 14.8 (H) 11.4 - MELINA MONAE 13.8 % [facility] LABORATORY MPV 12.3 7.6 - 12.9 MELINA MARSHOLIVIA [facility] LABORATORY nRBC % Auto 0.0 % [facility] LABORATORY nRBC Abs Auto 0.000 0.000 - MELINA MARSHOLIVIA 0.000 [facility] x10(3)/[facility] LABORATORY Specimen Anatomical Collection Method Collection Time Receive d Time (Source) Location / / Volume Laterality Blood specimen 12/07/2019 5:20 AM 020 5:37 (specimen) EDT AM EDT Resulting Agency Comment Spec In Lab Riki Stevens MD HEMATOLOGY ORDERABLES Performing Organization Address City/State/ZIP Code Phon e Number [address] Magnesium (12/07/2019 5:20 AM EDT) athologist Signature Magnesium 0.89 0.69 - 1.07 [facility] mmol/L [facility] LABORATORY Specimen Anatomical Collection Method Collection Time Receive d Time (Source) Location / / Volume Laterality Blood specimen 12/07/2019 5:20 AM 020 5:37 (specimen) EDT AM EDT Resulting Agency Comment Spec In Lab Gretchen Yoon MD CHEMISTRY ORDERABLES Performing Organization Address City/[facility]/ZIP Code Phon e Number [address] (ABNORMAL) BMP w/fasting Glucose (12/07/2019 5:20 AM EDT) athologist Signature Glucose 100 (H) 65 - 99 [facility] Fasting mg/dL [facility] LABORATORY Comment: ?Fasting* Glucose Interpretive [...] of Diabetes Mellitus, Position Statement from the [place] [employer]. ??Diabete s Care, Volume 33, Supplement 1, Jul 2009 BUN 14 10 - 20 mg/dL [facility] LABORATORY Creatinine 0.83 0.80 - 1.50 mg/dL [facility] LABORATORY Sodium 135 135 - 145 mmol/L [facility] LABORATORY Potassium 3.8 3.5 - 5.0 mmol/L [facility] LABORATORY Comment: Please note: ??Patients [...] Anion Gap 14 5 - 15 mmol/L [facility] LABORATORY Calcium 8.8 8.5 - 10.5 mg/dL [facility] LABORATORY Estimated GFR 87 >=60 mL/min/1.73 m?? [facility] LABORATORY Comment: The eGFR was calculated using the CKD-EP I equation. As with all creatinine based estimates of kidney function, eGFR values calculated with the CKD-EPI equation are not accurate in patients wi th acute kidney failure, extremes of body mass or the acutely ill. [email or web address] [email or web address] eGFR 101 >=60 mL/min/1.73 m?? [facility] LABORATORY Comment: The eGFR was calculated using the CKD-EP I equation. As with all creatinine based estimates of kidney function, eGFR values calculated with the CKD-EPI equation are not accurate in patients wi th acute kidney failure, extremes of body mass or the acutely ill. [email or web address] [email or web address] Specimen Anatomical Collection Method Collection Time Receive d Time (Source) Location / / Volume Laterality Blood specimen 12/07/2019 5:20 AM 020 5:37 (specimen) EDT AM EDT Resulting Agency Comment Spec In Lab Gretchen Yoon MD CHEMISTRY ORDERABLES Performing Organization Address City/State/[place] [address] Heparin (unfractionated) Level (12/06/2019 10:14 PM EDT) athologist Signature Heparin UFH 0.29 IU/mL [facility] LABORATORY Comment: Guidelines for therapeutic unfractionate d [...] Performing Organization Address City/State/Z[place] [address] [place] Head wo Contrast [...] below. ? Electronically signed by: Merari Collins [facility] ([phone]), at 12/06/2019 10:06 PM Narrative 12/06/2019 10:06 [...] Signature WBC 10.4 (H) 4.0 - 9.5 [facility] x[facility](3[facility] LABORATORY RBC 4.32 (L) 4.58 - [facility] OLIVIA 5.54 [facility] x10(6)/[facility] LABORATORY Hemoglobin 12.5 (L) 13.7 - [facility] 16.5 gm/dL [facility] LABORATORY Hematocrit 38.4 (L) 40.5 - [facility] 48.5 % [facility] LABORATORY MCV 88.9 82.9 - [facility] OLIVIA 93.1 [facility] LABORATORY MCH 28.9 27.5 - MELINA OLIVIA 32.1 pg [facility] LABORATORY MCHC 32.6 32.0 - [facility] OLIVIA 35.7 gm/dL [facility] LABORATORY Platelets 194 145 - 357 [facility] x10(3)/[facility] LABORATORY RDWSD 46.9 (H) 36.0 - [facility] OLIVIA 45.0 [facility] LABORATORY RDWCV 14.6 (H) 11.4 - [facility] OLIVIA 13.8 % [facility] LABORATORY MPV 11.9 7.6 - 12.9 [facility] OLIVIA [facility] LABORATORY nRBC % Auto 0.0 % [facility] LABORATORY nRBC Abs Auto 0.000 0.000 - [facility] OLIVIA 0.000 [facility] x10(3)/[facility] LABORATORY Specimen Anatomical Collection Method Collection Time Receive d Time (Source) Location / / Volume Laterality Blood specimen 12/06/2019 4:20 PM 020 4:31 (specimen) EDT PM EDT Resulting Agency Comment Spec In Lab Gretchen Yoon MD HEMATOLOGY ORDERABLES Performing Organization Address City/State/ZIP Code Phon e Number [place] [id number] HOSPITAL LABORATORY Drive Heparin (unfractionated) Level (12/06/2019 4:20 PM EDT) athologist Signature Heparin UFH 0.30 IU/mL [facility] LABORATORY Comment: Guidelines for therapeutic unfractionate d [...] Address City/State/ZIP Code Phon e Number [address] Heparin (unfractionated) Level (12/06/2019 10:02 AM EDT) athologist Signature Heparin UFH <0.04 IU/mL [facility] LABORATORY Comment: Guidelines for therapeutic unfractionate d [...] Lagos MD HEMATOLOGY ORDERABLES Performing Organization Address City/[facility]/[place] [address] Magnesium (12/06/2019 3:36 AM EDT) P athologist Signature Magnesium 0.86 0.69 - 1.07 [facility] mmol/L [facility] LABORATORY Specimen Anatomical Collection Method Collection Time Receive d Time (Source) Location / / Volume Laterality Blood specimen 12/06/2019 3:36 AM 020 3:45 (specimen) EDT AM EDT Resulting Agency Comment Spec In Lab Gretchen Yoon MD CHEMISTRY ORDERABLES Performing Organization Address City/[facility]/[place] [address] (ABNORMAL) BMP w/fasting Glucose (12/06/2019 3:36 AM EDT) P athologist Signature Glucose 103 (H) 65 - 99 [facility] Fasting mg/dL [facility] LABORATORY Comment: ?Fasting* Glucose Interpretive [...] of Diabetes Mellitus, Position Statement from the [place] [employer]. ??Diabete s Care, Volume 33, Supplement 1, Jul 2009 BUN 20 10 - 20 mg/dL [facility] LABORATORY Creatinine 0.88 0.80 - 1.50 mg/dL [facility] LABORATORY Sodium 136 135 - 145 mmol/L [facility] LABORATORY Potassium 4.0 3.5 - 5.0 mmol/L [facility] LABORATORY Comment: Please note: ??Patients [...] Anion Gap 14 5 - 15 mmol/L [facility] LABORATORY Calcium 8.7 8.5 - 10.5 mg/dL [facility] LABORATORY Estimated GFR 85 >=60 mL/min/1.73 m?? [facility] LABORATORY Comment: The eGFR was calculated using the CKD-EP I equation. As with all creatinine based estimates of kidney function, eGFR values calculated with the CKD-EPI equation are not accurate in patients wi th acute kidney failure, extremes of body mass or the acutely ill. [email or web address] eGFR 99 >=60 mL/min/1.73 m?? [facility] LABORATORY Comment: The eGFR was calculated using the CKD-EP I equation. As with all creatinine based estimates of kidney function, eGFR values calculated with the CKD-EPI equation are not accurate in patients wi th acute kidney failure, extremes of body mass or the acutely ill. [email or web address] Specimen Anatomical Collection Method Collection Time Receive d Time (Source) Location / / Volume Laterality Blood specimen 12/06/2019 3:36 AM 020 3:45 (specimen) EDT AM EDT Resulting Agency Comment Spec In Lab Gretchen Yoon MD CHEMISTRY ORDERABLES Performing Organization Address City/State/[place] [address] (ABNORMAL) Hemogram (12/06/2019 3:36 AM EDT) Analysis Performed At Patho logist Time Signature WBC 9.2 4.0 - 9.5 [facility] x[facility](3[facility] LABORATORY RBC 3.99 (L) 4.58 - MELINA OLIVIA 5.54 [facility] x10(6)/[facility] LABORATORY Hemoglobin 11.9 (L) 13.7 - [facility] OLIVIA 16.5 gm/dL [facility] LABORATORY Hematocrit 35.5 (L) 40.5 - [facility] OLIVIA 48.5 % [facility] LABORATORY MCV 89.0 82.9 - [facility] OLIVIA 93.1 [facility] LABORATORY MCH 29.8 27.5 - MELINA OLIVIA 32.1 pg [facility] LABORATORY MCHC 33.5 32.0 - [facility] OLIVIA 35.7 gm/dL [facility] LABORATORY Platelets 164 145 - 357 [facility] x[facility](3[facility] LABORATORY RDWSD 47.6 (H) 36.0 - MELINA OLIVIA 45.0 [facility] LABORATORY RDWCV 14.7 (H) 11.4 - MELINA OLIVIA 13.8 % [facility] LABORATORY MPV 11.9 7.6 - 12.9 [facility] nRBC % Auto 0.0 % [facility] LABORATORY nRBC Abs Auto 0.000 0.000 - MELINA OLIVIA 0.000 [facility] x10(3)/[facility] LABORATORY Specimen Anatomical Collection Method Collection Time Receive d Time (Source) Location / / Volume Laterality Blood specimen 12/06/2019 3:36 AM 020 3:45 (specimen) EDT AM EDT Resulting Agency Comment Spec In Lab Gretchen Yoon MD HEMATOLOGY ORDERABLES Performing Organization Address City/State/[place] [address] (ABNORMAL) Differential, Automated (12/05/2019 10:52 PM EDT) [facility] Method Time Signature Neutrophils % 61.9 % [facility] LABORATORY Neutr Abs (ANC) 6.02 1.70 - [facility] 6.10 [facility] x10(3)/[facility] LABORATORY Lymphocytes % 22.4 % [facility] LABORATORY Lymphocytes Abs 2.2 0.9 - 3.2 [facility] x10(3)/[facility] LABORATORY Monocytes % 10.4 % [facility] LABORATORY Monocyte Abs 1.0 (H) 0.3 - 0.9 [facility] x10(3)/[facility] LABORATORY Eosinophils % 4.1 % [facility] LABORATORY Eosinophils Abs 0.4 0.0 - 0.4 [facility] x10(3)/[facility] LABORATORY Basophils % 0.7 % [facility] LABORATORY Basophils Abs 0.1 0.0 - 0.1 [facility] x10(3)/[facility] LABORATORY Immature Gran % 0.50 % ST. [...] Gran Abs 0.05 (H) 0.00 - 0.04 x10(3)/[facility] LABORATORY Specimen Anatomical Collection Method Collection Time Receive d Time (Source) Location / / Volume Laterality Blood specimen 12/05/2019 10:52 0 (specimen) PM EDT 10:59 PM EDT Resulting Agency Comment Spec In Lab Mandi Barrera MD HEMATOLOGY ORDERABLES Performing Organization Address City/State/ZIP Code Phon e Number MELINA [place] [id number] HOSPITAL LABORATORY Drive (ABNORMAL) Hemogram (12/05/2019 10:52 PM EDT) Analysis Performed At Patho logist Time Signature WBC 9.7 (H) 4.0 - 9.5 [facility] x10(3)/[facility] LABORATORY RBC 4.07 (L) 4.58 - [facility] 5.54 [facility] x10(6)/[facility] LABORATORY Hemoglobin 11.9 (L) 13.7 - [facility] 16.5 gm/dL [facility] LABORATORY Hematocrit 36.4 (L) 40.5 - [facility] 48.5 % [facility] LABORATORY MCV 89.4 82.9 - [facility] 93.1 [facility] LABORATORY MCH 29.2 27.5 - [facility] 32.1 pg [facility] LABORATORY MCHC 32.7 32.0 - [facility] 35.7 gm/dL [facility] LABORATORY Platelets 167 145 - 357 [facility] x10(3)/[facility] LABORATORY RDWSD 47.7 (H) 36.0 - [facility] 45.0 [facility] LABORATORY RDWCV 14.6 (H) 11.4 - [facility] 13.8 % [facility] LABORATORY MPV 12.1 7.6 - 12.9 [facility] LABORATORY nRBC % Auto 0.0 % [facility] nRBC Abs Auto 0.000 0.000 - [facility] 0.000 [facility] x10(3)/[facility] LABORATORY Specimen Anatomical Collection Method Collection Time Receive d Time (Source) Location / / Volume Laterality Blood specimen 12/05/2019 10:52 0 (specimen) PM EDT 10:59 PM EDT Resulting Agency Comment Spec In Lab Mandi Barrera MD HEMATOLOGY ORDERABLES Performing Organization Address City/State/[place] [address] Heparin (unfractionated) Level (12/05/2019 10:52 PM EDT) P athologist Signature Heparin UFH <0.04 IU/mL [facility] LABORATORY Comment: Guidelines for therapeutic unfractionate d [...] Organization Address City/State/[place] [address] MRI Brain wwo Contrast [...] number below. ? Electronically signed by: ALBA Jenkins [facility] ([phone]), at 12/05/2019 10:02 PM Narrative 12/05/2019 10:02 [...] number below. Electronically signed by: Merari Collins [facility] ([phone]), at 12/05/2019 10:02 PM Paris Lagos MD IMG MRI ORDERABLES (ABNORMAL) Hemogram (12/05/2019 1:00 PM EDT) Analysis Performed At Patho logist Time Signature WBC 8.7 4.0 - 9.5 [facility] x[facility](3[facility] LABORATORY RBC 4.17 (L) 4.58 - MELINA OLIVIA 5.54 [facility] x10(6)/[facility] LABORATORY Hemoglobin 12.4 (L) 13.7 - MELINA OLIVIA 16.5 gm/dL [facility] LABORATORY Hematocrit 37.0 (L) 40.5 - [facility] OLIVIA 48.5 % [facility] LABORATORY MCV 88.7 82.9 - [facility] OLIVIA 93.1 [facility] LABORATORY MCH 29.7 27.5 - MELINA OLIVIA 32.1 pg [facility] LABORATORY MCHC 33.5 32.0 - [facility] OLIVIA 35.7 gm/dL [facility] LABORATORY Platelets 173 145 - 357 [facility] x10(3)/[facility] LABORATORY RDWSD 47.3 (H) 36.0 - [facility] OLIVIA 45.0 [facility] LABORATORY RDWCV 14.6 (H) 11.4 - [facility] OLIVIA 13.8 % [facility] LABORATORY MPV 12.1 7.6 - 12.9 [facility] OLIVIA [facility] LABORATORY nRBC % Auto 0.0 % [facility] LABORATORY nRBC Abs Auto 0.000 0.000 - MELINA OLIVIA 0.000 [facility] x10(3)/[facility] LABORATORY Specimen Anatomical Collection Method Collection Time Receive d Time (Source) Location / / Volume Laterality Blood specimen 12/05/2019 1:00 PM 020 1:13 (specimen) EDT PM EDT Resulting Agency Comment Spec In Lab Gretchen Yoon MD HEMATOLOGY ORDERABLES Performing Organization Address City/State/[place] [address] EKG 12 Lead (12/05/2019 10:52 AM EDT) Component Value Ref Range Test Analysis Performed Pathologis t Method Time At Signature Ventricular rate 72 BPM MUSE SYSTEM Atrial Rate 72 BPM MUSE SYSTEM P-R Interval 138 ms MUSE SYSTEM QRS Duration 96 ms MUSE SYSTEM Q-T Interval 396 ms MUSE SYSTEM QTC Calculated 433 ms MUSE SYSTEM (Bezet) Calculated P Reserve 65 degrees MUSE SYSTEM Calculated R Reserve 13 degrees MUSE SYSTEM Calculated T Reserve 0 degrees MUSE SYSTEM INTERPRETATION Sinus rhythm Occasional Premature ventricular complexe s MUSE SYSTEM Possible Inferior infarct (cited on or before 29-NOV-2019) Abnormal ECG When compared with ECG of 04-DEC-2019 10:43, Sinus rhythm has replaced Atrial fibrillation Vent. rate has decreased BY ??86 BPM Confirmed by MD Ceja Daniel ([id number]) on 12/05/2019 3:55:22 PM Specimen Anatomical Collection Method Collection Time Receive d Time (Source) Location / / Volume Laterality 12/05/2019 10:52 12/05/2019 3:55 AM EDT PM EDT Paris Lagos MD ECG ORDERABLES Performing Organization Address City/State/ZIP Code Phon e Number MUSE SYSTEM Duplex Study for DVT, Bilat legs (12/05/2019 7:00 AM EDT) Component Value Ref Test Analysis Performed At [facility] gist Range Method Time Signature VB Text Department: Vascular Surgery Lab VASCUBASE Report Patient: [id number] (ANGEL LUIS SALINAS) CPT: 32370 ICD10: I26.99 Referring Physician: GRETCHEN YOON ?? [...] 1.07 [facility] mmol/L [facility] LABORATORY Specimen Anatomical Collection Method Collection Time Receive d Time (Source) Location / / Volume Laterality Blood specimen 12/05/2019 4:18 AM 020 4:31 (specimen) EDT AM EDT Resulting Agency Comment Spec In Lab Gretchen Yoon MD CHEMISTRY ORDERABLES Performing Organization Address City/State/[place] [address] (ABNORMAL) BMP w/fasting Glucose (12/05/2019 4:18 AM EDT) P athologist Signature Glucose 104 (H) 65 - 99 [facility] Fasting mg/dL [facility] LABORATORY Comment: ?Fasting* Glucose Interpretive [...] of Diabetes Mellitus, Position Statement from the [place] [employer]. ??Diabete s Care, Volume 33, Supplement 1, Jul 2009 BUN 21 (H) 10 - 20 mg/dL [facility] LABORATORY Creatinine 1.02 0.80 - 1.50 mg/dL [facility] LABORATORY Sodium 136 135 - 145 mmol/L [facility] LABORATORY Potassium 3.9 3.5 - 5.0 mmol/L [facility] LABORATORY Comment: Please note: ??Patients [...] Anion Gap 12 5 - 15 mmol/L [facility] LABORATORY Calcium 8.8 8.5 - 10.5 mg/dL [facility] LABORATORY Estimated GFR 73 >=60 mL/min/1.73 m?? [facility] LABORATORY Comment: The eGFR was calculated using the CKD-EP I equation. As with all creatinine based estimates of kidney function, eGFR values calculated with the CKD-EPI equation are not accurate in patients wi th acute kidney failure, extremes of body mass or the acutely ill. [email or web address] eGFR 84 >=60 mL/min/1.73 m?? [facility] Comment: The eGFR was calculated using the CKD-EP I equation. As with all creatinine based estimates of kidney function, eGFR values calculated with the CKD-EPI equation are not accurate in patients wi th acute kidney failure, extremes of body mass or the acutely ill. [email or web address] Specimen Anatomical Collection Method Collection Time Receive d Time (Source) Location / / Volume Laterality Blood specimen 12/05/2019 4:18 AM 020 4:31 (specimen) EDT AM EDT Resulting Agency Comment Spec In Lab Gretchen Yoon MD CHEMISTRY ORDERABLES Performing Organization Address City/State/[place] [address] (ABNORMAL) Hemogram (12/05/2019 4:18 AM EDT) Analysis Performed At Patho logist Time Signature WBC 8.6 4.0 - 9.5 [facility](3[facility] LABORATORY RBC 4.28 (L) 4.58 - MELINA OLIVIA 5.54 [facility] x10(6)/[facility] LABORATORY Hemoglobin 12.4 (L) 13.7 - [facility] 16.5 gm/dL [facility] Hematocrit 37.3 (L) 40.5 - [facility] 48.5 % [facility] MCV 87.1 82.9 - [facility] 93.1 [facility] LABORATORY MCH 29.0 27.5 - MELINA OLIVAI 32.1 pg [facility] MCHC 33.2 32.0 - [facility] OLIVIA 35.7 gm/dL [facility] Platelets 163 145 - 357 [facility] x10(3)/[facility] LABORATORY RDWSD 46.4 (H) 36.0 - [facility] OLIVIA 45.0 [facility] LABORATORY RDWCV 14.4 (H) 11.4 - [facility] OLIVIA 13.8 % [facility] MPV 11.7 7.6 - 12.9 [facility] LABORATORY nRBC % Auto 0.0 % [facility] nRBC Abs Auto 0.000 0.000 - [facility] Rentalutions 0.000 [facility] x10(3)/[facility] LABORATORY Specimen Anatomical Collection Method Collection Time Receive d Time (Source) Location / / Volume Laterality Blood specimen 12/05/2019 4:18 AM 020 4:31 (specimen) EDT AM EDT Resulting Agency Comment Spec In Lab Gretchen Yoon MD HEMATOLOGY ORDERABLES Performing Organization Address City/State/[place] [address] Cardiac for Morphology [...] below. ? Electronically signed by: Roselyn Luciano [facility] ([phone]), at 12/04/2019 6:16 PM Narrative 12/04/2019 6:16 [...] from neck/greatest puja meter to back wall: LUXEMBOURGER 91, CAU 13: ??19 mm CORTES ??1, [...] from neck/greatest puja meter to back wall: LUXEMBOURGER 91, CAU 13: 19 mm CORTES 1, [...] e number below. Electronically signed by: Roselyn Luciano [facility] ([phone]), at 12/04/2019 6:16 PM Gretchen Yoon MD IMG CT ORDERABLES (ABNORMAL) Hemogram (12/04/2019 12:55 PM EDT) Analysis Performed At Patho logist Time Signature WBC 8.9 4.0 - 9.5 [facility] x10(3)/[facility] LABORATORY RBC 4.69 4.58 - [facility] 5.54 [facility] x10(6)/[facility] LABORATORY Hemoglobin 13.5 (L) 13.7 - [facility] 16.5 gm/dL [facility] Hematocrit 41.7 40.5 - [facility] 48.5 % [facility] MCV 88.9 82.9 - MELINA MONAE 93.1 [facility] LABORATORY MCH 28.8 27.5 - MELINA MONAE 32.1 pg [facility] MCHC 32.4 32.0 - MELINA MONAE 35.7 gm/dL [facility] Platelets 196 145 - 357 [facility] x10(3)/[facility] LABORATORY RDWSD 46.7 (H) 36.0 - MELINA MONAE 45.0 [facility] LABORATORY RDWCV 14.5 (H) 11.4 - MELINA MONAE 13.8 % [facility] MPV 12.1 7.6 - 12.9 [facility] nRBC % Auto 0.0 % [facility] nRBC Abs Auto 0.000 0.000 - MELINA MONAE 0.000 [facility] x10(3)/[facility] LABORATORY Specimen Anatomical Collection Method Collection Time Receive d Time (Source) Location / / Volume Laterality Blood specimen 12/04/2019 12:55 0 1:06 (specimen) PM EDT PM EDT Resulting Agency Comment Spec In Lab Gretchen Yoon MD HEMATOLOGY ORDERABLES Performing Organization Address City/State/[place] [address] EKG 12 Lead (12/04/2019 10:43 AM EDT) Component Value Ref Range Test Analysis Performed Pathologis t Method Time At Signature Ventricular rate 158 BPM MUSE SYSTEM Atrial Rate 102 BPM MUSE SYSTEM QRS Duration 92 ms MUSE SYSTEM Q-T Interval 294 ms MUSE SYSTEM QTC Calculated 476 ms MUSE SYSTEM (Bezet) Calculated R Reserve 17 degrees MUSE SYSTEM Calculated T Reserve 90 degrees MUSE SYSTEM INTERPRETATION Atrial fibrillation with rapid ventricular response MUSE SYSTEM Possible Inferior infarct (cited on or before 29-NOV-2019) Abnormal ECG When compared with ECG of 30-NOV-2019 21:07, Atrial fibrillation has replaced Sinus rhythm Vent. rate has increased BY ??65 BPM Confirmed by MD Ceja Daniel ([id number]) on 12/05/2019 8:59:44 AM Specimen Anatomical Collection Method Collection Time Receive d Time (Source) Location / / Volume Laterality 12/04/2019 10:43 12/05/2019 8:59 AM EDT AM EDT Gretchen Yoon MD ECG ORDERABLES Performing Organization Address City/State/ZIP Code Phon e Number MUSE SYSTEM (ABNORMAL) Magnesium (12/04/2019 4:28 AM EDT) P athologist Signature Magnesium 1.17 (H) 0.69 - 1.07 [facility] mmol/L [facility] Specimen Anatomical Collection Method Collection Time Receive d Time (Source) Location / / Volume Laterality Blood specimen 12/04/2019 4:28 AM 020 4:40 (specimen) EDT AM EDT Resulting Agency Comment Spec In Lab Gretchen Yoon MD CHEMISTRY ORDERABLES Performing Organization Address City/State/[place] [address] (ABNORMAL) BMP w/fasting Glucose (12/04/2019 4:28 AM EDT) P athologist Signature Glucose 108 (H) 65 - 99 [facility] Fasting mg/dL [facility] Comment: ?Fasting* Glucose Interpretive [...] of Diabetes Mellitus, Position Statement from the [place] [employer]. ??Diabete s Care, Volume 33, Supplement 1, Jul 2009 BUN 19 10 - 20 mg/dL [facility] Creatinine 0.89 0.80 - 1.50 mg/dL [facility] LABORATORY Sodium 135 135 - 145 mmol/L [facility] LABORATORY Potassium 4.2 3.5 - 5.0 mmol/L [facility] Comment: Please note: ??Patients [...] Anion Gap 12 5 - 15 mmol/L [facility] Calcium 8.5 8.5 - 10.5 mg/dL [facility] LABORATORY Estimated GFR 85 >=60 mL/min/1.73 m?? [facility] Comment: The eGFR was calculated using the CKD-EP I equation. As with all creatinine based estimates of kidney function, eGFR values calculated with the CKD-EPI equation are not accurate in patients wi th acute kidney failure, extremes of body mass or the acutely ill. [email or web address] eGFR 98 >=60 mL/min/1.73 m?? [facility] Comment: The eGFR was calculated using the CKD-EP I equation. As with all creatinine based estimates of kidney function, eGFR values calculated with the CKD-EPI equation are not accurate in patients wi th acute kidney failure, extremes of body mass or the acutely ill. [email or web address] Specimen Anatomical Collection Method Collection Time Receive d Time (Source) Location / / Volume Laterality Blood specimen 12/04/2019 4:28 AM 020 4:40 (specimen) EDT AM EDT Resulting Agency Comment Spec In Lab Gretchen Yoon MD CHEMISTRY ORDERABLES Performing Organization Address City/State/[place] [address] (ABNORMAL) Hemogram (12/04/2019 4:28 AM EDT) Analysis Performed At Patho logist Time Signature WBC 7.8 4.0 - 9.5 [facility] x10(3)/[facility] LABORATORY RBC 4.10 (L) 4.58 - [facility] 5.54 [facility] x10(6)/[facility] LABORATORY Hemoglobin 12.0 (L) 13.7 - [facility] 16.[facility] gm/dL [facility] Hematocrit 36.5 (L) 40.5 - MELINA WHITTENCOCK 48.5 % [facility] MCV 89.0 82.9 - MELINA WHITTENCOCK 93.1 [facility] LABORATORY MCH 29.3 27.5 - MELINA WHITTENCOCK 32.1 pg [facility] MCHC 32.9 32.0 - MELINA WHITTENCOCK 35.7 gm/dL [facility] Platelets 151 145 - 357 [facility] x10(3)/[facility] LABORATORY RDWSD 46.9 (H) 36.0 - MELINA WHITTENCOCK 45.0 [facility] LABORATORY RDWCV 14.4 (H) 11.4 - M[place] OLIVIA 13.8 % [facility] MPV 12.2 7.6 - 12.9 MELINA WHITTENCOCK [facility] LABORATORY nRBC % Auto 0.0 % [facility] nRBC Abs Auto 0.000 0.000 - MELINA VILLANUEVACK 0.000 [facility] x10(3)/[facility] LABORATORY Specimen Anatomical Collection Method Collection Time Receive d Time (Source) Location / / Volume Laterality Blood specimen 12/04/2019 4:28 AM 020 4:40 (specimen) EDT AM EDT Resulting Agency Comment Spec In Lab Gretchen Yoon MD HEMATOLOGY ORDERABLES Performing Organization Address City/State/[place] [address] Potassium (12/03/2019 7:55 PM EDT) P athologist Signature Potassium 3.9 3.5 - 5.0 [facility] mmol/L [facility] Comment: Please note: ??Patients [...] Address City/State/[place] [address] Potassium (12/03/2019 1:57 PM EDT) P athologist Signature Potassium 3.7 3.5 - 5.0 MELINA OLIVIA mmol/L [facility] Comment: Please note: ??Patients [...] Yoon MD CHEMISTRY ORDERABLES Performing Organization Address City/[facility]/[place] [address] (ABNORMAL) Hemogram (12/03/2019 1:57 PM EDT) Analysis Performed At Patho logist Time Signature WBC 8.8 4.0 - 9.5 M[place]INA OLIVIA x10(3)/[facility] LABORATORY RBC 4.27 (L) 4.58 - M[place] OLIVIA 5.54 [facility] x10(6)/[facility] LABORATORY Hemoglobin 12.5 (L) 13.7 - MELINA OLIVIA 16.5 gm/dL [facility] Hematocrit 37.5 (L) 40.5 - MELINA OLIVIA 48.5 % [facility] MCV 87.8 82.9 - MELINA OLIVIA 93.1 [facility] LABORATORY MCH 29.3 27.5 - MELINA OLIVIA 32.1 pg [facility] MCHC 33.3 32.0 - M[place] OLIVIA 35.7 gm/dL [facility] Platelets 158 145 - 357 MELINA OLIVIA x10(3)/[facility] LABORATORY RDWSD 46.9 (H) 36.0 - MELINA OLIVIA 45.0 [facility] LABORATORY RDWCV 14.5 (H) 11.4 - MELINA OLIVIA 13.8 % [facility] MPV 12.2 7.6 - 12.9 [facility] fL [facility] nRBC % Auto 0.0 % [facility] nRBC Abs Auto 0.000 0.000 - MELINA MONAE 0.000 [facility] x10(3)/[facility] LABORATORY Specimen Anatomical Collection Method Collection Time Receive d Time (Source) Location / / Volume Laterality Blood specimen 12/03/2019 1:57 PM 020 2:21 (specimen) EDT PM EDT Resulting Agency Comment Spec In Lab Gretchen Yoon MD HEMATOLOGY ORDERABLES Performing Organization Address City/State/ZIP Code Phon e Number [address] Magnesium (12/03/2019 4:02 AM EDT) P athologist Signature Magnesium 0.79 0.69 - 1.07 [facility] mmol/L [facility] Specimen Anatomical Collection Method Collection Time Receive d Time (Source) Location / / Volume Laterality Blood specimen 12/03/2019 4:02 AM 020 4:16 (specimen) EDT AM EDT Resulting Agency Comment Spec In Lab Gretchen Yoon MD CHEMISTRY ORDERABLES Performing Organization Address City/[facility]/ZIP Code Phon e Number [address] (ABNORMAL) BMP w/fasting Glucose (12/03/2019 4:02 AM EDT) P athologist Signature Glucose 100 (H) 65 - 99 [facility] Fasting mg/dL [facility] Comment: ?Fasting* Glucose Interpretive [...] of Diabetes Mellitus, Position Statement from the [place] [employer]. ??Diabete s Care, Volume 33, Supplement 1, Jul 2009 BUN 17 10 - 20 mg/dL [facility] Creatinine 0.95 0.80 - 1.50 mg/dL [facility]ORY Sodium 136 135 - 145 mmol/L [facility]OR[facility]ORY Potassium 3.4 (L) 3.5 - 5.0 mmol/L [facility] Comment: Please note: ??Patients [...] Anion Gap 15 5 - 15 mmol/L [facility] Calcium 8.3 (L) 8.5 - 10.5 mg/dL [facility] LABORATORY Estimated GFR 79 >=60 mL/min/1.73 m?? [facility] Comment: The eGFR was calculated using the CKD-EP I equation. As with all creatinine based estimates of kidney function, eGFR values calculated with the CKD-EPI equation are not accurate in patients wi th acute kidney failure, extremes of body mass or the acutely ill. [email or web address] eGFR 92 >=60 mL/min/1.73 m?? [facility] Comment: The eGFR was calculated using the CKD-EP I equation. As with all creatinine based estimates of kidney function, eGFR values calculated with the CKD-EPI equation are not accurate in patients wi th acute kidney failure, extremes of body mass or the acutely ill. [email or web address] Specimen Anatomical Collection Method Collection Time Receive d Time (Source) Location / / Volume Laterality Blood specimen 12/03/2019 4:02 AM 020 4:16 (specimen) EDT AM EDT Resulting Agency Comment Spec In Lab Gretchen Yoon MD CHEMISTRY ORDERABLES Performing Organization Address City/State/ZIP Code Phon e Number [address] (ABNORMAL) Hemogram (12/03/2019 4:02 AM EDT) Analysis Performed At Patho logist Time Signature WBC 9.1 4.0 - 9.5 M[place] OLIVIA x10(3)/[facility] LABORATORY RBC 4.01 (L) 4.58 - M[place]INA OLIVIA 5.54 [facility] x10(6)/[facility] LABORATORY Hemoglobin 11.8 (L) 13.7 - [facility] 16.5 gm/dL [facility] Hematocrit 35.6 (L) 40.5 - [facility] 48.5 % [facility] MCV 88.8 82.9 - [facility] 93.1 [facility] LABORATORY MCH 29.4 27.5 - MELINA OLIVIA 32.1 pg [facility] MCHC 33.1 32.0 - MELINA OLIVIA 35.7 gm/dL [facility] Platelets 130 (L) 145 - 357 [facility] LABORATORY RDWSD 46.6 (H) 36.0 - MELINA OLIVIA 45.0 [facility] LABORATORY RDWCV 14.4 (H) 11.4 - [facility] OLIVIA 13.8 % [facility] MPV 12.4 7.6 - 12.9 [facility] nRBC % Auto 0.0 % [facility] nRBC Abs Auto 0.000 0.000 - MELINA OLIVIA 0.000 [facility] x10(3)/[facility] LABORATORY Specimen Anatomical Collection Method Collection Time Receive d Time (Source) Location / / Volume Laterality Blood specimen 12/03/2019 4:02 AM 020 4:16 (specimen) EDT AM EDT Resulting Agency Comment Spec In Lab Gretchen Yoon MD HEMATOLOGY ORDERABLES Performing Organization Address City/State/ZIP Code Phon e Number [address] XR Chest One View (12/02/2019 [...] Signature WBC 10.6 (H) 4.0 - 9.5 [facility] x[facility](3[facility] LABORATORY RBC 4.00 (L) 4.58 - MELINA OLIVIA 5.54 [facility] x10(6)/[facility] LABORATORY Hemoglobin 11.9 (L) 13.7 - MELINA OLIVIA 16.5 gm/dL [facility] Hematocrit 35.7 (L) 40.5 - MELINA OLIVIA 48.5 % [facility] MCV 89.3 82.9 - MELINA OLIVIA 93.1 [facility] LABORATORY MCH 29.8 27.5 - MELINA OLIVIA 32.1 pg [facility] MCHC 33.3 32.0 - MELINA OLIVIA 35.7 gm/dL [facility] Platelets 120 (L) 145 - 357 [facility] x10(3)/[facility] LABORATORY RDWSD 47.5 (H) 36.0 - MELINA OLIVIA 45.0 [facility] LABORATORY RDWCV 14.6 (H) 11.4 - MELINA OLIVIA 13.8 % [facility] MPV 12.0 7.6 - 12.9 MELINA OLIVIA [facility] LABORATORY nRBC % Auto 0.0 % [facility] nRBC Abs Auto 0.000 0.000 - MELINA OLIVIA 0.000 [facility] x10(3)/[facility] LABORATORY Specimen Anatomical Collection Method Collection Time Receive d Time (Source) Location / / Volume Laterality Blood specimen 12/02/2019 12:50 0 1:22 (specimen) PM EDT PM EDT Resulting Agency Comment Spec In Lab Gretchen Yoon MD HEMATOLOGY ORDERABLES Performing Organization Address City/State/ZIP Code Phon e Number [address] Blue Tube HOLD (12/02/2019 4:55 AM EDT) P athologist Signature Blue Hold Sample in [facility] lab. [facility] Specimen Anatomical Collection Method Collection Time Receive d Time (Source) Location / / Volume Laterality Blood specimen Venous Draw / 12/02/2019 4:55 AM 2019 5:03 (specimen) Unknown EDT AM EDT Darrell Glasgow MD HEMATOLOGY ORDERABLES Performing Organization Address City/State/ZIP Code Phon e Number [address] Magnesium (12/02/2019 4:55 AM EDT) athologist Signature Magnesium 0.85 0.69 - 1.07 [facility] mmol/L [facility] Specimen Anatomical Collection Method Collection Time Receive d Time (Source) Location / / Volume Laterality Blood specimen 12/02/2019 4:55 AM 020 5:02 (specimen) EDT AM EDT Resulting Agency Comment Spec In Lab Gretchen Yoon MD CHEMISTRY ORDERABLES Performing Organization Address City/[facility]/ZIP Code Phon e Number [address] (ABNORMAL) BMP w/fasting Glucose (12/02/2019 4:55 AM EDT) P athologist Signature Glucose 114 (H) 65 - 99 [facility] Fasting mg/dL [facility] Comment: ?Fasting* Glucose Interpretive [...] of Diabetes Mellitus, Position Statement from the [place] [employer]. ??Diabete s Care, Volume 33, Supplement 1, Jul 2009 BUN 13 10 - 20 mg/dL [facility] Creatinine 0.93 0.80 - 1.50 mg/dL [facility]ORY Sodium 135 135 - 145 mmol/L [facility]ORATORY Potassium 3.7 3.5 - 5.0 mmol/L [facility]ORY Comment: Please note: ??Patients [...] Anion Gap 12 5 - 15 mmol/L [facility] Calcium 8.1 (L) 8.5 - 10.5 mg/dL [facility] LABORATORY Estimated GFR 81 >=60 mL/min/1.73 m?? [facility] Comment: The eGFR was calculated using the CKD-EP I equation. As with all creatinine based estimates of kidney function, eGFR values calculated with the CKD-EPI equation are not accurate in patients wi th acute kidney failure, extremes of body mass or the acutely ill. [email or web address] eGFR 94 >=60 mL/min/1.73 m?? [facility] Comment: The eGFR was calculated using the CKD-EP I equation. As with all creatinine based estimates of kidney function, eGFR values calculated with the CKD-EPI equation are not accurate in patients wi th acute kidney failure, extremes of body mass or the acutely ill. [email or web address] Specimen Anatomical Collection Method Collection Time Receive d Time (Source) Location / / Volume Laterality Blood specimen 12/02/2019 4:55 AM 06/02/2 020 5:02 (specimen) EDT AM EDT Resulting Agency Comment Spec In Lab Gretchen Yoon MD CHEMISTRY ORDERABLES Performing Organization Address City/State/ZIP Code Phon e Number [address] (ABNORMAL) Hemogram (12/02/2019 4:55 AM EDT) Analysis Performed At Patho logist Time Signature WBC 9.3 4.0 - 9.5 M[place] OLIVIA x10(3)/[facility] LABORATORY RBC 3.71 (L) 4.58 - MELINA OLIVIA 5.54 [facility] x10(6)/[facility] LABORATORY Hemoglobin 10.8 (L) 13.7 - [facility] 16.5 gm/dL [facility] Hematocrit 33.1 (L) 40.5 - MELINA OLIVIA 48.5 % [facility] MCV 89.2 82.9 - MELINA OLIVIA 93.1 [facility] LABORATORY MCH 29.1 27.5 - MELINA OLIVIA 32.1 pg [facility] MCHC 32.6 32.0 - M[place] OLIVIA 35.7 gm/dL [facility] Platelets 93 (L) 145 - 357 [facility] LABORATORY RDWSD 47.1 (H) 36.0 - MELINA OLIVIA 45.0 [facility] LABORATORY RDWCV 14.6 (H) 11.4 - MELINA OLIVIA 13.8 % [facility] MPV 11.7 7.6 - 12.9 [facility] OLIVIA [facility] LABORATORY nRBC % Auto 0.0 % [facility] nRBC Abs Auto 0.000 0.000 - MELINA OLIVIA 0.000 [facility] x10(3)/[facility] LABORATORY Specimen Anatomical Collection Method Collection Time Receive d Time (Source) Location / / Volume Laterality Blood specimen 12/02/2019 4:55 AM 020 5:02 (specimen) EDT AM EDT Resulting Agency Comment Spec In Lab Gretchen Yoon MD HEMATOLOGY ORDERABLES Performing Organization Address City/State/ZIP Code Phon e Number [address] Transfuse 1 unit platelets, [...] Electronically signed by: Angel Luis Barboza MD, [facility] ([phone]), at 12/01/2019 8:02 PM Narrative 12/01/2019 8:02 [...] 6:20 PM EDT) athologist Signature Dispensed? Yes [facility] Specimen Anatomical Collection Method Collection Time Receive d Time (Source) Location / / Volume Laterality Blood specimen 12/01/2019 6:20 PM 020 6:18 (specimen) EDT PM EDT Gretchen Yoon MD BLOOD BANK ORDERABLES Performing Organization Address City/State/ZIP Code [facility] e Number [place] [id number] HOSPITAL LABOR[address]ORY Drive Duplex for DVT, Arm, Unilat (12/01/2019 5:08 PM EDT) Component Value Ref Test Analysis Performed At [facility] Range Method Time Signature VB Text Department: Vascular Surgery Lab VASCUBASE Report Patient: [id number] (ANGEL LUIS SALINAS) CPT: 01192 ICD10: R60.0 Referring Physician: GRETCHEN YOON ?? [...] below. ? Electronically signed by: Merari Collins [facility] ([phone]), at 12/01/2019 3:53 PM Narrative 12/01/2019 3:53 PM EDT EXAMINATION: CT HEAD WO CONTRAST (GENERIC) CLINICAL HISTORY: Headache, intracranial hemorrhage suspected Serial CT scan: please assess for propag ation of known ICH noted on prior Head CT/imaging. TECHNIQUE: CT head performed without intravenous co ntrast administration. COMPARISON: Head CT 11/30/2019. CT angiogram of the [place] 11/01. FINDINGS: Ventricles are normal [...] Head CT 11/30/2019. CT angiogram of the [place] 11/01. FINDINGS: Ventricles are normal [...] Scan, Peripheral Blood (12/01/2019 12:51 PM EDT) [facility] Method Time Signature Plat Estimate Decreased [facility] RBC Morphology Normal [facility] Giant Less than 1 /HPF [facility] Platelets [facility] Specimen Anatomical Collection Method Collection Time Receive d Time (Source) Location / / Volume Laterality Blood specimen 12/01/2019 12:51 0 1:05 (specimen) PM EDT PM EDT Resulting Agency Comment Spec In Lab Riki Stevens MD HEMATOLOGY ORDERABLES Performing Organization Address City/State/[place] [address] (ABNORMAL) Differential, Automated (12/01/2019 12:51 PM EDT) [facility] Method Time Signature Neutrophils % 74.9 % [facility] Neutr Abs (ANC) 6.34 (H) 1.70 - [facility] 6.10 [facility] x10(3)/[facility] L LABORATORY Lymphocytes % 11.4 % [facility] Lymphocytes Abs 1.0 0.9 - 3.2 [facility] x10(3)/[facility] LABORATORY Monocytes % 12.4 % [facility] Monocyte Abs 1.0 (H) 0.3 - 0.9 [facility] x10(3)/[facility] LABORATORY Eosinophils % 0.4 % [facility] Eosinophils Abs 0.0 0.0 - 0.4 [facility] x10(3)/[facility] LABORATORY Basophils % 0.4 % [facility] Basophils Abs 0.0 0.0 - 0.1 [facility] x10(3)/[facility] LABORATORY Immature Gran % 0.50 % ST. [...] Pita Gran Abs 0.04 0.00 - 0.04 x10(3)/[facility] LABORATORY Specimen Anatomical Collection Method Collection Time Receive d Time (Source) Location / / Volume Laterality Blood specimen 12/01/2019 12:51 0 1:05 (specimen) PM EDT PM EDT Resulting Agency Comment Spec In Lab Riki Stevens MD HEMATOLOGY ORDERABLES Performing Organization Address City/State/[place] [address] (ABNORMAL) Hemogram (12/01/2019 12:51 PM EDT) Analysis Performed At Patho logist Time Signature WBC 8.4 4.0 - 9.5 [facility] x10(3)/[facility] LABORATORY RBC 3.69 (L) 4.58 - [facility]54 [facility] x10(6)/[facility] LABORATORY Hemoglobin 10.8 (L) 13.7 - [facility] 16.[facility] gm/dL [facility] Hematocrit 32.4 (L) 40.5 - [facility] 48.5 % [facility] MCV 87.8 82.9 - [facility] 93.1 fL [facility] MCH 29.3 27.5 - [facility] 32.1 pg [facility] MCHC 33.3 32.0 - [facility] 35.7 gm/dL [facility] Platelets 72 (L) 145 - 357 [facility] x10(3)/[facility] LABORATORY RDWSD 47.2 (H) 36.0 - [facility] 45.0 [facility] LABORATORY RDWCV 14.6 (H) 11.4 - [facility] 13.8 % [facility] MPV 12.2 7.6 - 12.9 [facility] LABORATORY nRBC % Auto 0.0 % [facility] nRBC Abs Auto 0.000 0.000 - [facility] 0.000 [facility] x10(3)/[facility] LABORATORY Specimen Anatomical Collection Method Collection Time Receive d Time (Source) Location / / Volume Laterality Blood specimen 12/01/2019 12:51 0 1:05 (specimen) PM EDT PM EDT Resulting Agency Comment Spec In Lab Riki Stevens MD HEMATOLOGY ORDERABLES Performing Organization Address City/[facility]/ZIP Code Phon e Number [address] (ABNORMAL) Coox2 (12/01/2019 11:42 AM EDT) Analysis Performed At Patho logist Time Signature pO2 Coox [address] [facility] Hgb Blood Gas 11.6 (L) 13.7 - [facility] 16.5 gm/dL [facility] O2HB Coox 60.8 % [facility] COHB Coox 0.6 % [facility] Comment: Nonsmokers: 0.5-1.5% COHB Smokers: Variable, but usually less than 10% Toxic: 20-30% COHB Lethal: Greater than 60% COHB METHB Coox 0.6 <=1.5 % [facility] Source Coox Mixed Venous [facility] Specimen Anatomical Collection Method Collection Time Receive d Time (Source) Location / / Volume Laterality Blood specimen 12/01/2019 11:42 0 (specimen) AM EDT 11:42 AM EDT Gretchen Yoon MD CHEMISTRY ORDERABLES Performing Organization Address City/[facility]/ZIP Code Phon e Number [address] Sedimentation rate (12/01/2019 3:55 AM EDT) P athologist Signature Sed Rate 25 3 - 46 [facility] mm/hr [facility] Comment: Effective June 11, [...] Winn MD HEMATOLOGY ORDERABLES Performing Organization Address City/[facility]/ZIP Code Phon e Number [address] (ABNORMAL) CRP, acute inflammation [...] Winn MD CHEMISTRY ORDERABLES Performing Organization Address City/[facility]/ZIP Code Phon e Number [address] ABORH Recheck Status (12/01/2019 3:55 AM EDT) [facility] Method Time Signature ABORH Recheck Order Placed [facility] LABORATORY ABORH Type Complete [facility] LABORATORY Specimen Anatomical Collection Method Collection Time Receive d Time (Source) Location / / Volume Laterality Blood specimen 12/01/2019 3:55 AM 020 4:15 (specimen) EDT AM EDT Resulting Agency Comment Spec In Lab Lewis Gee MD BLOOD BANK ORDERABLES Performing Organization Address City/[facility]/[place] [address] Antibody screen (12/01/2019 3:55 AM EDT) Patholo gist Method Time Signature Ab Screen Negative [facility] LABORATORY Expires at 12/04/2019 [facility] [id number] on: [facility] Specimen Anatomical Collection Method Collection Time Receive d Time (Source) Location / / Volume Laterality Blood specimen 12/01/2019 3:55 AM 020 4:15 (specimen) EDT AM EDT Resulting Agency Comment Spec In Lab Lewis Gee MD BLOOD BANK ORDERABLES Performing Organization Address City/[facility] [place] [address] ABO/Rh Typing (12/01/2019 3:55 AM EDT) athologist [facility] ABORh Type AB Pos [facility] Specimen Anatomical Collection Method Collection Time Receive d Time (Source) Location / / Volume Laterality Blood specimen 12/01/2019 3:55 AM 020 4:15 (specimen) EDT AM EDT Resulting Agency Comment Spec In Lab Lewis Gee MD BLOOD BANK ORDERABLES Performing Organization Address City/[facility] [place] [address] (ABNORMAL) Troponin (12/01/2019 3:55 AM EDT) athologist [facility] Troponin-T 4.35 (H) 0.00 - [facility] 0.00 ng/mL [facility] Comment: result rechecked-slw The [...] additional sample may be indicated. Reference: Third [place] Definition of Myocardial Infarction. Journal of the [place] [employer] 2012;60:1581-98 Specimen Anatomical Collection Method Collection Time Receive d Time (Source) Location / / Volume Laterality Blood specimen 12/01/2019 3:55 AM 020 4:00 (specimen) EDT AM EDT Resulting Agency Comment Spec In Lab Gretchen Yoon MD CHEMISTRY ORDERABLES Performing Organization Address City/State/ZIP Code Phon e Number [address] Magnesium (12/01/2019 3:55 AM EDT) athologist Signature Magnesium 0.96 0.69 - 1.07 [facility] mmol/L [facility] Specimen Anatomical Collection Method Collection Time Receive d Time (Source) Location / / Volume Laterality Blood specimen 12/01/2019 3:55 AM 020 4:00 (specimen) EDT AM EDT Resulting Agency Comment Spec In Lab Gretchen Yoon MD CHEMISTRY ORDERABLES Performing Organization Address City/[facility]/ZIP [facility] [place] [address] (ABNORMAL) BMP w/fasting Glucose (12/01/2019 3:55 AM EDT) P athologist Signature Glucose 148 (H) 65 - 99 [facility] Fasting mg/dL [facility] Comment: ?Fasting* Glucose Interpretive [...] of Diabetes Mellitus, Position Statement from the [place] [employer]. ??Diabete s Care, Volume 33, Supplement 1, Jul 2009 BUN 11 10 - 20 mg/dL [facility] Creatinine 0.96 0.80 - 1.50 mg/dL [facility] Sodium 132 (L) 135 - 145 mmol/L [facility]ORY Potassium 4.0 3.5 - 5.0 mmol/L [facility]ORY Comment: Please note: ??Patients [...] Anion Gap 10 5 - 15 mmol/L [facility] Calcium 7.6 (L) 8.5 - 10.5 mg/dL [facility] LABORATORY Estimated GFR 78 >=60 mL/min/1.73 m?? [facility] Comment: The eGFR was calculated using the CKD-EP I equation. As with all creatinine based estimates of kidney function, eGFR values calculated with the CKD-EPI equation are not accurate in patients wi th acute kidney failure, extremes of body mass or the acutely ill. [email or web address] [email or web address] eGFR 91 >=60 mL/min/1.73 m?? [facility] Comment: The eGFR was calculated using the CKD-EP I equation. As with all creatinine based estimates of kidney function, eGFR values calculated with the CKD-EPI equation are not accurate in patients wi th acute kidney failure, extremes of body mass or the acutely ill. [email or web address] [email or web address] Specimen Anatomical Collection Method Collection Time Receive d Time (Source) Location / / Volume Laterality Blood specimen 12/01/2019 3:55 AM 020 4:00 (specimen) EDT AM EDT Resulting Agency Comment Spec In Lab Gretchen Yoon MD CHEMISTRY ORDERABLES Performing Organization Address City/State/[place] [address] (ABNORMAL) Hemogram (12/01/2019 3:55 AM EDT) Analysis Performed At Patho logist Time Signature WBC 11.0 (H) 4.0 - 9.5 [facility] x10(3)/[facility] LABORATORY RBC 3.46 (L) 4.58 - M[place]INA OLIVIA 5.54 [facility] x10(6)/[facility] LABORATORY Hemoglobin 10.2 (L) 13.7 - [facility] 16.5 gm/dL [facility] Hematocrit 31.2 (L) 40.5 - [facility] 48.5 % [facility] MCV 90.2 82.9 - [facility] 93.1 [facility] LABORATORY MCH 29.5 27.5 - [place] OL[facility]IA 32.1 pg [facility] MCHC 32.7 32.0 - [place] [facility] 35.7 gm/dL [facility] Platelets 98 (L) 145 - 357 [facility] x[facility](3[facility] LABORATORY RDWSD 47.9 (H) 36.0 - [facility] 45.0 [facility] LABORATORY RDWCV 14.6 (H) 11.4 - [facility] 13.8 % [facility] MPV 12.3 7.6 - 12.9 [facility] nRBC % Auto 0.0 % [facility] nRBC Abs Auto 0.000 0.000 - [place]IA 0.000 [facility] x10(3)/[facility] LABORATORY Specimen Anatomical Collection Method Collection Time Receive d Time (Source) Location / / Volume Laterality Blood specimen 12/01/2019 3:55 AM 020 4:00 (specimen) EDT AM EDT Resulting Agency Comment Spec In Lab Gretchen Yoon MD HEMATOLOGY ORDERABLES Performing Organization Address City/State/ZIP Code [place] [facility] [address] (ABNORMAL) BLOOD GAS 2 ARTERIAL (11/30/2019 10:39 PM EDT) Analysis Performed At Patho logist Time Signature pH Art 7.45 7.35 - [facility] 7.45 [facility] pCO2 Art 23 (L) 35 - 45 [facility] mmHg [facility] pO2 Art 76 (L) 85 - 104 [facility] mmHg [facility] HCO3 Art 15.3 (L) 20.0 - [facility] 26.0 [facility] mmol/L [facility] BE Art -8.7 (L) -3.0 - 3.0 [facility] mmol/L [facility] Hgb Blood Gas 11.7 (L) 13.7 - [facility] 16.5 gm/dL [facility] O2HB Art 94.2 94.0 - [facility] 97.0 % [facility] COHB Art 0.5 % [facility] Comment: Nonsmokers: 0.5-1.5% COHB Smokers: Variable, but usually less than 10% Toxic: 20-30% COHB Lethal: Greater than 60% COHB METHB Art 0.6 <=1.5 % [facility] Na Whole Blood 133 (L) 135 - 145 mmol/L [facility] K Whole Blood 3.8 3.5 - 5.0 mmol/L [facility] Comment: Please note: Patients with [...] Blood 109 (H) 98 - 107 mmol/L [facility] Gluc Whole Bld 120 65 - 199 mg/dL [facility] Comment: Diabetes: >=200 mg/dL plus symp toms. Lactate WB 0.8 0.5 - 2.2 mmol/L [facility] FIO2 Art 100 % [facility] PF Ratio Art 76 [facility] Specimen Anatomical Collection Method Collection Time Receive d Time (Source) Location / / Volume Laterality Blood specimen 11/30/2019 10:39 0 (specimen) PM EDT 10:39 PM EDT Gretchen Yoon MD CHEMISTRY ORDERABLES Performing Organization Address [facility]/ZIP [facility] [place] [address] EKG 12 Lead (11/30/2019 [...] (Bezet) Calculated P 12 degrees MUSE SYSTEM Reserve Calculated R 19 degrees MUSE SYSTEM Reserve Calculated T -47 degrees MUSE SYSTEM Reserve INTERPRETATION Sinus rhythm with Premature supraventricular complexes [...] Yoon MD ECG ORDERABLES Performing Organization Address City/[facility]/ZIP [facility] Phon e Number MUSE SYSTEM (ABNORMAL) Urinalysis Microscopic Exam (11/30/2019 8:40 PM EDT) P athologist Signature RBC UA 27 (H) 0 - 3 /HPF [facility] WBC UA 4 (H) 0 - 3 /HPF [facility] Hyaline Cast 3 (H) 0 - 2 /LPF [facility] Specimen (Source) Anatomical Collection Method Collection Time Re ceived Time Location / / Volume Laterality Urine specimen 11/30/2019 8:40 11/30/2019 obtained via PM EDT 10:51 PM EDT indwelling urinary catheter (specimen) Resulting Agency Comment Spec In Lab Rossy Winn MD URINE ORDERABLES Performing Organization Address City/State/ZIP Code Phon e Number [address] (ABNORMAL) Urinalysis with reflex Culture (11/30/2019 8:40 PM EDT) Patholo gist Method Time Signature Glucose UA Negative Negative [facility] mg/dL [facility] Protein UA Negative Negative [facility] mg/dL [facility] Bilirubin UA Negative Negative [facility] mg/dL [facility] Comment: Clinical correlation required [facility] Nitrite UA Negative Negative [facility] Leukocytes UA Trace (A) Negative [facility] LABORATORY Appearance UA Clear Clear [facility] Spec [place] UA 1.026 1.006 - 1.030 [facility] Color UA Yellow Yellow [facility] Culture Reflexed No [facility]OR[facility]ORY Specimen (Source) Anatomical Collection Method Collection Time Re ceived Time Location / / Volume Laterality Urine specimen 11/30/2019 8:40 11/30/2019 obtained via PM EDT 10:51 PM EDT indwelling urinary catheter (specimen) Resulting Agency Comment Spec In Lab Gretchen Yoon MD URINE ORDERABLES Performing Organization Address City/[facility]/[place] [address] [facility] [address] Drive (ABNORMAL) pro-Brain Natriuretic Peptide (11/30/2019 8:30 PM EDT) athologist Signature ProBNP 2,802 (H) <=125 [facility] pg/mL [facility] Specimen Anatomical Collection Method Collection Time Receive d Time (Source) Location / / Volume Laterality Blood specimen Venous Draw / 11/30/2019 8:30 PM 2019 8:36 (specimen) Unknown EDT PM EDT Resulting Agency Comment Spec In Lab Rossy Winn MD CHEMISTRY ORDERABLES Performing Organization Address City/[facility]/[place] [address] (ABNORMAL) Troponin (11/30/2019 8:30 PM EDT) athologist Signature Troponin-T 5.04 (H) 0.00 - M[place] MONAE 0.00 ng/mL [facility] Comment: The 99th percentile [...] additional sample may be indicated. Reference: Third [place] Definition of Myocardial Infarction. Journal of the [place] [employer] 2012;60:1581-98 Specimen Anatomical Collection Method Collection Time Receive d Time (Source) Location / / Volume Laterality Blood specimen Venous Draw / 11/30/2019 8:30 PM 2019 8:36 (specimen) Unknown EDT PM EDT Resulting Agency Comment Spec In Lab Rossy Winn MD CHEMISTRY ORDERABLES Performing Organization Address City/[facility]/[place] [address] [facility] [address] Magnesium (11/30/2019 8:30 PM EDT) athologist Signature Magnesium 0.79 0.69 - 1.07 [facility] mmol/L [facility] Specimen Anatomical Collection Method Collection Time Receive d Time (Source) Location / / Volume Laterality Blood specimen 11/30/2019 8:30 PM 020 8:35 (specimen) EDT PM EDT Resulting Agency Comment Spec In Lab Gretchen Yoon MD CHEMISTRY ORDERABLES Performing Organization Address City/State/ZIP Code Phon e Number [address] (ABNORMAL) Basic Metabolic Panel (non-fasting) (11/30/2019 8:30 PM EDT) athologist Signature Glucose Lvl 132 65 - 199 [facility] mg/dL [facility] Comment: Diabetes: >=200 mg/dL plus symp toms BUN 12 10 - 20 mg/dL [facility] Creatinine 0.94 0.80 - 1.50 mg/dL [facility] Sodium 136 135 - 145 mmol/L [facility] Potassium 3.9 3.5 - 5.0 mmol/L [facility] Comment: Please note: ??Patients [...] Anion Gap 11 5 - 15 mmol/L [facility] Calcium 7.9 (L) 8.5 - 10.5 mg/dL [facility]ORY Estimated GFR 80 >=60 mL/min/1.73 m?? [facility] Comment: The eGFR was calculated using the CKD-EP I equation. As with all creatinine based estimates of kidney function, eGFR values calculated with the CKD-EPI equation are not accurate in patients wi th acute kidney failure, extremes of body mass or the acutely ill. [email or web address] eGFR 93 >=60 mL/min/1.73 m?? [facility] Comment: The eGFR was calculated using the CKD-EP I equation. As with all creatinine based estimates of kidney function, eGFR values calculated with the CKD-EPI equation are not accurate in patients wi th acute kidney failure, extremes of body mass or the acutely ill. [email or web address] Specimen Anatomical Collection Method Collection Time Receive d Time (Source) Location / / Volume Laterality Blood specimen 11/30/2019 8:30 PM 020 8:35 (specimen) EDT PM EDT Resulting Agency Comment Spec In Lab Gretchen Yoon MD CHEMISTRY ORDERABLES Performing Organization Address [facility] [place] [address] Blood culture (11/30/2019 8:30 PM EDT) Patholo gist Method Time Signature Blood Culture No growth MELINA [place] at 5 days. [facility] Specimen Anatomical Collection Method Collection Time Receive d Time (Source) Location / / Volume Laterality Blood specimen 11/30/2019 8:30 PM 020 9:40 (specimen) EDT PM EDT Comment: L HAND Resulting Agency Comment Spec In Lab Gretchen Yoon MD MICROBIOLOGY - BLOOD ORDERAB LES Performing Organization Address [facility] [place] [address] Blood culture (11/30/2019 8:30 PM EDT) Patholo gist Method Time Signature Blood Culture No growth MELINA MARSHOLIVIA at 5 days. [facility] Specimen Anatomical Collection Method Collection Time Receive d Time (Source) Location / / Volume Laterality Blood specimen 11/30/2019 8:30 PM 020 9:40 (specimen) EDT PM EDT Comment: R HAND Resulting Agency Comment Spec In Lab Gretchen Yoon MD MICROBIOLOGY - BLOOD ORDERAB LES Performing Organization Address City/State/ZIP Code Phon e Number [place] [id number] HOSPITAL LABORATORY Drive XR Chest One View [...] - [facility] 7.45 [facility] pCO2 Art 27 (L) 35 - 45 [facility] mmHg [facility] pO2 Art 68 (L) 85 - 104 [facility] mmHg [facility] HCO3 Art 18.2 (L) 20.0 - [facility] 26.0 [facility] mmol/L HOSPITAL LABORATORY BE Art -5.9 (L) -3.0 - 3.0 [facility] mmol/L [facility] Hgb Blood Gas 12.4 (L) 13.7 - [facility] 16.5 gm/dL [facility] O2HB Art 93.1 (L) 94.0 - [facility] 97.0 % [facility] COHB Art 0.8 % [facility] Comment: Nonsmokers: 0.5-1.5% COHB Smokers: Variable, but usually less than 10% Toxic: 20-30% COHB Lethal: Greater than 60% COHB METHB Art 0.4 <=1.5 % [facility] Na Whole Blood 133 (L) 135 - 145 mmol/L [facility] K Whole Blood 3.6 3.5 - 5.0 mmol/L [facility] Comment: Please note: Patients with [...] Blood 108 (H) 98 - 107 mmol/L [facility] Gluc Whole Bld 121 65 - 199 mg/dL [facility] Comment: Diabetes: >=200 mg/dL plus symp toms. Lactate WB 1.2 0.5 - 2.2 mmol/L [facility] Flow Art 5.0 LPM [facility] Specimen Anatomical Collection Method Collection Time Receive d Time (Source) Location / / Volume Laterality Blood specimen 11/30/2019 8:09 PM 020 8:09 (specimen) EDT PM EDT Gretchen Yoon MD CHEMISTRY ORDERABLES Performing Organization Address City/State/[place] [address] Angiogram [place] (11/30/2019 4:36 PM EDT) Anatomical [...] Electronically signed by: Angel Luis Barboza MD, [facility] ([phone]), at 11/30/2019 5:04 PM Narrative 11/30/2019 5:04 PM EDT EXAMINATION: CT HEAD WO CONTRAST (GENERIC), CT ANGIOGRAM [place] CLINICAL HISTORY: Headache, intracranial hemorrhage suspected F/U on known ICH - assessing for propaga tion TECHNIQUE: CT head performed without intravenous co ntrast administration. CT angiogram [place] 65 cc Omnipaque 350 administered [...] HEAD WO CONTRAST (GENERI C), CT ANGIOGRAM [place] CLINICAL HISTORY: Headache, intracranial hemorrhage suspected F/U on known ICH - assessing for propaga tion TECHNIQUE: CT head performed without intravenous co ntrast administration. CT angiogram [place] 65 cc Omnipaque 350 administered [...] CT HEAD WO CONTRAST (GENERIC), CT ANGIOGRAM [place] CLINICAL HISTORY: Headache, intracranial hemorrhage suspected F/U on known ICH - assessing for propaga tion TECHNIQUE: CT head performed without intravenous co ntrast administration. CT angiogram [place] 65 cc Omnipaque 350 administered [...] HEAD WO CONTRAST (GENERI C), CT ANGIOGRAM [place] CLINICAL HISTORY: Headache, intracranial hemorrhage suspected F/U on known ICH - assessing for propaga tion TECHNIQUE: CT head performed without intravenous co ntrast administration. CT angiogram [place] 65 cc Omnipaque 350 administered [...] Electronically signed by: Angel Luis Barboza MD, [facility] ([phone]), at 11/30/2019 5:04 PM Gretchen Yoon MD [...] 453 ms MUSE SYSTEM (Bezet) Calculated P Reserve 52 degrees MUSE SYSTEM Calculated R Reserve 5 degrees MUSE SYSTEM Calculated T Reserve -60 degrees MUSE SYSTEM INTERPRETATION Sinus rhythm [...] [place] ? (Age): 1945(74y) Med Rec#: ? [id number] ?Sex: ?M ? [place] Loc: ? [facility] [place]Ht / Wt: ??178(cm)/64(kg) Pt. Loc: ?CCU ? BSA: ?1.8 Study Date: ?? 11/30/2019 ?Pt. Type: Inpatient Tape: ? Referring: DONAYMICCAROLYNNLJ Reading: Tello Mejia ([id number]) Dope Heater: Eve Lolita Diagnosis: *ST elevation (STEMI) myocardial [...] Vmax ?0.58 ? m/sec ? MV deceleration djtd368.05 ? m sec ? MV A-wave Vmax [...] ? Mid-Inferior ?Akinetic ? Mid-Inferoseptal ?Normal ? Waka-Septal ? Normal ? Waka-Anterior ? Normal ? Waka-Lateral ?Normal ? Waka-Inferior ? Hypokinetic ? Waka-Tip ?Normal ? This report has been electronically sign ed by: _ Tello Mejia MD ? 11/30/2019 12: 45:27 [facility] Procedure Note Tello Mejia MD - 11/30/2019Formatti ng of this note might be different from the original. Procedure: Transthoracic Echocardiogram Patient: RITA ACOSTA(Age): [birth year](74y) Med Rec#: [id number] Sex: M Site Loc: [facility] Ht / Wt: 178(cm)/64(kg) Pt. Loc: CCU BSA: 1.8 Study Date: 11/30/2019 Pt. Type: Inpatie nt Tape: Referring: GILMER Reading: Tello Mejia ([id number]) Dope Heater: EveLolita Diagnosis: *ST elevation (STEMI) myocardial infarc [...] MV E-wave Vmax 0.58 m/sec MV deceleration iodo895.05 msec MV A-wave Vmax 0.74 m/sec MV [...] Hypokinetic Mid-Posterolateral Hypokinetic Mid-Inferior Akinetic Mid-Inferoseptal Normal Waka-Septal Normal Waka-Anterior Normal Waka-Lateral Normal Waka-Inferior Hypokinetic Waka-Tip Normal This report has been electronically sign ed by: _ Tello Mejia MD 11/30/2019 12:45:27 Images [facility] Gretchen Yoon [...] below. ? Electronically signed by: Angel Luis Barboaz MD, [facility] ([phone]), at 11/30/2019 12:04 PM Narrative 11/30/2019 12:04 [...] athologist Signature Magnesium 0.88 0.69 - 1.07 [facility] mmol/L [facility] Specimen Anatomical Collection Method Collection Time Receive d Time (Source) Location / / Volume Laterality Blood specimen Venous Draw / 11/30/2019 8:30 AM 2019 8:37 (specimen) Unknown EDT AM EDT Resulting Agency Comment Spec In Lab Rossy Winn MD CHEMISTRY ORDERABLES Performing Organization Address City/[facility]/[place] [address] (ABNORMAL) CK (11/30/2019 8:30 AM EDT) athologist Signature CK, Total 1,645 (H) 0 - 200 [facility] unit/[facility] Specimen Anatomical Collection Method Collection Time Receive d Time (Source) Location / / Volume Laterality Blood specimen 11/30/2019 8:30 AM 020 8:32 (specimen) EDT AM EDT Resulting Agency Comment Spec In Lab Gretchen Yoon MD CHEMISTRY ORDERABLES Performing Organization Address City/[facility]/ZIP [facility] [place] [address] (ABNORMAL) Troponin (11/30/2019 8:30 AM EDT) P athologist Signature Troponin-T 8.04 (H) 0.00 - MELINA MONAE 0.00 ng/mL [facility] Comment: result rechecked-rancho The [...] additional sample may be indicated. Reference: Third [place] Definition of Myocardial Infarction. Journal of the [place] [employer] 2012;60:1581-98 Specimen Anatomical Collection Method Collection Time Receive d Time (Source) Location / / Volume Laterality Blood specimen 11/30/2019 8:30 AM 020 8:32 (specimen) EDT AM EDT Resulting Agency Comment Spec In Lab Gretchen Yoon MD CHEMISTRY ORDERABLES Performing Organization Address City/State/ZIP Code Phon [place] [address] EKG 12 Lead (11/30/2019 7:57 AM EDT) Component Value Ref Range Test Analysis Performed Pathologis t Method Time At Signature Ventricular rate 64 BPM MUSE SYSTEM Atrial Rate 64 BPM MUSE SYSTEM P-R Interval 132 ms MUSE SYSTEM QRS Duration 78 ms MUSE SYSTEM Q-T Interval 420 ms MUSE SYSTEM QTC Calculated 433 ms MUSE SYSTEM (Bezet) Calculated P Reserve 28 degrees MUSE SYSTEM Calculated R Reserve 7 degrees MUSE SYSTEM Calculated T Reserve -33 degrees MUSE SYSTEM INTERPRETATION Sinus rhythm [...] [facility] Fasting mg/dL [facility] Comment: ?Fasting* Glucose Interpretive [...] of Diabetes Mellitus, Position Statement from the [place] [employer]. ??Diabete s Care, Volume 33, Supplement 1, Jul 2009 BUN 13 10 - 20 mg/dL [facility] Creatinine 0.90 0.80 - 1.50 mg/dL [facility] Sodium 135 135 - 145 mmol/L [facility] Potassium 3.9 3.5 - 5.0 mmol/L [facility] Comment: Please note: ??Patients [...] Anion Gap 11 5 - 15 mmol/L [facility] Calcium 7.5 (L) 8.5 - 10.5 mg/dL [facility] Estimated GFR 84 >=60 mL/min/1.73 m?? [facility] Comment: The eGFR was calculated using the CKD-EP I equation. As with all creatinine based estimates of kidney function, eGFR values calculated with the CKD-EPI equation are not accurate in patients wi th acute kidney failure, extremes of body mass or the acutely ill. [email or web address] eGFR 98 >=60 mL/min/1.73 m?? [facility] Comment: The eGFR was calculated using the CKD-EP I equation. As with all creatinine based estimates of kidney function, eGFR values calculated with the CKD-EPI equation are not accurate in patients wi th acute kidney failure, extremes of body mass or the acutely ill. [email or web address] [email or web address] Specimen Anatomical Collection Method Collection Time Receive d Time (Source) Location / / Volume Laterality Blood specimen 11/30/2019 2:15 AM 020 2:29 (specimen) EDT AM EDT Resulting Agency Comment Spec In Lab Gretchen Yoon MD CHEMISTRY ORDERABLES Performing Organization Address City/State/[place] [address] (ABNORMAL) Hemogram (11/30/2019 2:15 AM EDT) Analysis Performed At Patho logist Time Signature WBC 11.2 (H) 4.0 - 9.5 [facility] x10(3)/[facility] LABORATORY RBC 3.83 (L) 4.58 - [facility] 5.54 [facility] x10(6)/[facility] LABORATORY Hemoglobin 11.4 (L) 13.7 - [facility] 16.5 gm/dL [facility] Hematocrit 35.2 (L) 40.5 - MELINA [place] 48.5 % [facility] MCV 91.9 82.9 - [facility] 93.1 [facility] LABORATORY MCH 29.8 27.5 - MELINA MARSHOLIVIA 32.1 pg [facility] MCHC 32.4 32.0 - MELINA MARSHOLIVIA 35.7 gm/dL [facility] Platelets 122 (L) 145 - 357 [facility] x10(3)/[facility] LABORATORY RDWSD 49.8 (H) 36.0 - MELINA MARSHOLIVIA 45.0 [facility] LABORATORY RDWCV 14.8 (H) 11.4 - [facility] 13.8 % [facility] MPV 12.1 7.6 - 12.9 [facility] LABORATORY nRBC % Auto 0.0 % [facility] nRBC Abs Auto 0.000 0.000 - [facility] 0.000 [facility] x10(3)/[facility] LABORATORY Specimen Anatomical Collection Method Collection Time Receive d Time (Source) Location / / Volume Laterality Blood specimen 11/30/2019 2:15 AM 020 2:29 (specimen) EDT AM EDT Resulting Agency Comment Spec In Lab Gretchen Yoon MD HEMATOLOGY ORDERABLES Performing Organization Address City/State/ZIP Code Phon e Number [address] (ABNORMAL) CK (11/30/2019 2:15 AM EDT) [facility] CK, Total 1,969 (H) 0 - 200 [facility] unit/L [facility] Specimen Anatomical Collection Method Collection Time Receive d Time (Source) Location / / Volume Laterality Blood specimen 11/30/2019 2:15 AM 020 2:29 (specimen) EDT AM EDT Resulting Agency Comment Spec In Lab Gretchen Yoon MD CHEMISTRY ORDERABLES Performing Organization Address City/State/ZIP Code Phon e Number [address] (ABNORMAL) Troponin (11/30/2019 2:15 AM EDT) [facility] Troponin-T 11.73 (H) 0.00 - MELINA MONAE 0.00 ng/mL [facility] Comment: result rechecked-slw The [...] additional sample may be indicated. Reference: Third [place] Definition of Myocardial Infarction. Journal of the [place] [employer] 2012;60:1581-98 result rechecked- The [...] additional sample may be indicated. Reference: Third [place] Definition of Myocardial Infarction. Journal of the [place] College [employer]iology 2012;60:1581-98 Corrected from 11.73 ng/ml [HI] on 11/29 3:11:51 EDT by Debi Hawley Specimen Anatomical Collection Method Collection Time Receive d Time (Source) Location / / Volume Laterality Blood specimen 11/30/2019 2:15 AM 020 2:29 (specimen) EDT AM EDT Resulting Agency Comment Spec In Lab Gretchen Yoon MD CHEMISTRY ORDERABLES Performing Organization Address City/[facility]/ZIP Code Phon e Number [address] LDL Cholesterol, Direct (11/30/2019 2:15 AM EDT) P athologist Signature LDL Chol 156 mg/dL [facility] Comment: Lowest Risk: <100 mg/dL Lower Risk: 100-129 mg/dL Borderline High Risk: 130-159 mg/dL High Risk: 160-189 mg/dL Very High Risk: >rv=084 mg/dL Specimen Anatomical Collection Method Collection Time Receive d Time (Source) Location / / Volume Laterality Blood specimen 11/30/2019 2:15 AM 020 2:29 (specimen) EDT AM EDT Resulting Agency Comment Spec In Lab Gretchen Yoon MD CHEMISTRY ORDERABLES Performing Organization Address City/[facility]/ZIP [facility] [place] [address] (ABNORMAL) Hemoglobin A1c (11/30/2019 [...] Mellitus, Diabetes Care 2013; 36: Suppl. 1, S67-74 Est Avg Gluc See note mg/dL MELINA OLIVIA [facility] Comment: Estimated Average Glucose not [...] into estimated average glucose values. ??Diabetes Care 2008:31(8):2529-6393. Specimen Anatomical Collection Method Collection Time Receive d Time (Source) Location / / Volume Laterality Blood specimen 11/30/2019 2:15 AM 020 2:29 (specimen) EDT AM EDT Resulting Agency Comment Spec In Lab Gretchen Yoon MD CHEMISTRY ORDERABLES Performing Organization Address City/State/[place] [address] Lipid Panel (Reflex Direct LDL) (11/30/2019 2:15 AM EDT) athologist Signature Chol, Total 195 mg/dL [facility] Comment: Lower Risk: <200 mg/dL Average Risk: 200-239 mg/dL Higher Risk: >um=223 mg/dL Triglycerides 93 mg/dL [facility] Comment: Average Risk/Lower Risk: <150 mg/dL Borderline High Risk: 150-199 mg/dL High Risk: 200-499 mg/dL Very High Risk: >lr=185 mg/dL HDL 32 mg/dL [facility] Comment: Males: ?? Higher Risk: <40 mg/dL Females: ?? HIgher Risk: <50 mg/dL LDL Cholesterol 144 mg/dL [facility] Comment: Lowest Risk: <100 mg/dL Lower Risk: 100-129 mg/dL Borderline High Risk: 130-159 mg/dL High Risk: 160-189 mg/dL Very High Risk: >lj=724 mg/dL Chol/HDL Ratio 6.[address] [facility] Lipid Interpretation See Note [facility] Comment: Lipid management should be guided by a p atient? s ASCVD risk, goals and preferences. ACC/AHA Guidelines recommend high intens ity statin if clinical ASCVD or LDL greater than or equal to 190 mg/dL. http://PVPower.Modelinia/WYH-NAH-Olpcywykf Adults aged 40-75 with LDL 70-189 mg/dL should have their 10 year ASCVD risk estimated with the ACC/AHA ASCVD risk es timator http://tools.acc.org/OYECC-Wxqt-Ushmrttb r/ Statin should be discussed if risk [...] Address City/State/ZIP Code Phon e Number [address] (ABNORMAL) CK (11/29/2019 6:35 PM EDT) athologist Signature CK, Total 2,780 (H) 0 - 200 [facility] unit/L [facility] Specimen Anatomical Collection Method Collection Time Receive d Time (Source) Location / / Volume Laterality Blood specimen 11/29/2019 6:35 PM 020 6:53 (specimen) EDT PM EDT Resulting Agency Comment Spec In Lab Gretchen Yoon MD CHEMISTRY ORDERABLES Performing Organization Address City/[facility]/[place] [address] (ABNORMAL) Troponin (11/29/2019 6:35 PM EDT) athologist Signature Troponin-T 17.60 (H) 0.00 - [facility] 0.00 ng/mL [facility] Comment: result rechecked-az The [...] additional sample may be indicated. Reference: Third [place] Definition of Myocardial Infarction. Journal of the [place] [employer]iology 2012;60:1581-98 Specimen Anatomical Collection Method Collection Time Receive d Time (Source) Location / / Volume Laterality Blood specimen 11/29/2019 6:35 PM 020 6:53 (specimen) EDT PM EDT Resulting Agency Comment Spec In Lab Gretchen Yoon MD CHEMISTRY ORDERABLES Performing Organization Address City/State/[place] [address] EKG 12 Lead (11/29/2019 3:58 PM EDT) [facility] gist Method Time Signature Ventricular rate 73 BPM MUSE SYSTEM Atrial Rate 73 BPM MUSE SYSTEM P-R Interval 152 ms MUSE SYSTEM QRS Duration 84 ms MUSE SYSTEM Q-T Interval 404 ms MUSE SYSTEM QTC Calculated 445 ms MUSE SYSTEM (Bezet) Calculated P Reserve 50 degrees MUSE SYSTEM Calculated R Reserve -4 degrees MUSE SYSTEM Calculated T Reserve 19 degrees MUSE SYSTEM INTERPRETATION Sinus rhythm with Premature atrial complexes MUSE SYSTEM Possible Inferior infarct (cited on or before 29-NOV-2019) Abnormal ECG When compared with ECG of 29-NOV-2019 11:38, Premature atrial complexes are now Present Confirmed by MD Charlene, Pepe Dawn ([id number]) on 11/30/2019 10:48:52 AM Specimen Anatomical Collection Method Collection Time Receive d Time (Source) Location / / Volume Laterality 11/29/2019 3:58 PM 0 EDT 10:48 AM EDT Juventino Concepcion MD ECG ORDERABLES Performing Organization Address City/[facility]/ZIP Code Phon e Number MUSE SYSTEM XR [...] report, please contact th e number below. ? Electronically signed by: Devin Solis [facility] ([phone]), at 11/29/2019 5:06 PM --------ORIGINAL REPORT -------- EXAMINATION: XR CHEST ONE VIEW CLINICAL HISTORY: stemi (as entered by [facility] provider in the order requisition) [...] lung apex is excluded from the imaged [id number]. IMPRESSION: 1. ??New right internal jugular pulmonar [...] report, please contact th e number below. ? Electronically signed by: Devin Solis [facility] ([phone]), at 11/29/2019 4:36 PM Impressions 11/29/2019 4:36 [...] below. ? Electronically signed by: Devin Solis [facility] ([phone]), at 11/29/2019 4:36 PM Narrative 11/29/2019 4:36 [...] lung apex is excluded from the imaged [id number]. Procedure Note Estefani Harris MD - 11/29/2019Formattin [...] lung apex is excluded from the imaged [id number]. IMPRESSION 1. New right internal jugular pulmonary [...] number below. Electronically signed by: Devin Solis [facility] ([phone]), at 11/29/2019 4:36 PM Juventino Concepcion MD IMG DX ORDERABLES (ABNORMAL) Differential, Automated (11/29/2019 2:32 PM EDT) [facility] Method Time Signature Neutrophils % 83.8 % [facility] Neutr Abs (ANC) 12.12 (H) 1.70 - [facility] 6.10 [facility] x10(3)/[facility] LABORATORY Lymphocytes % 9.1 % [facility] Lymphocytes Abs 1.3 0.9 - 3.2 [facility] x10(3)/[facility] LABORATORY Monocytes % 6.2 % [facility] Monocyte Abs 0.9 0.3 - 0.9 [facility] x10(3)/[facility] LABORATORY Eosinophils % 0.0 % [facility] Eosinophils Abs 0.0 0.0 - 0.4 [facility] x10(3)/[facility] LABORATORY Basophils % 0.3 % [facility] Basophils Abs 0.0 0.0 - 0.1 [facility] x10(3)/[facility] LABORATORY Immature Gran % 0.60 % ST. [...] Gran Abs 0.08 (H) 0.00 - 0.04 x10(3)/[facility] LABORATORY Specimen Anatomical Collection Method Collection Time Receive d Time (Source) Location / / Volume Laterality Blood specimen 11/29/2019 2:32 PM 020 2:55 (specimen) EDT PM EDT Resulting Agency Comment Spec In Lab Darrell Glasgow MD HEMATOLOGY ORDERABLES Performing Organization Address City/State/[place] [address] (ABNORMAL) Hemogram (11/29/2019 2:32 PM EDT) Analysis Performed At Patho logist Time Signature WBC 14.5 (H) 4.0 - 9.5 [facility] x[facility](3[facility] LABORATORY RBC 4.53 (L) 4.58 - [facility] OLIVIA 5.54 [facility] x10(6)/[facility] LABORATORY Hemoglobin 13.1 (L) 13.7 - [facility] OLIVIA 16.5 gm/dL [facility] Hematocrit 40.8 40.5 - [facility] 48.5 % [facility] MCV 90.1 82.9 - [facility] 93.1 [facility] LABORATORY MCH 28.9 27.5 - [facility] OLIV[facility] 32.1 pg [facility] MCHC 32.1 32.0 - [facility] 35.7 gm/dL [facility] Platelets 184 145 - 357 [facility](3[facility] LABORATORY RDWSD 47.8 (H) 36.0 - [facility] OLIVIA 45.0 [facility] LABORATORY RDWCV 14.5 (H) 11.4 - [facility] OLIVIA 13.8 % [facility] MPV 11.9 7.6 - 12.9 [facility] LABORATORY nRBC % Auto 0.0 % [facility] nRBC Abs Auto 0.000 0.000 - MELINA [place] 0.000 [facility] x10(3)/[facility] LABORATORY Specimen Anatomical Collection Method Collection Time Receive d Time (Source) Location / / Volume Laterality Blood specimen 11/29/2019 2:32 PM 020 2:55 (specimen) EDT PM EDT Resulting Agency Comment Spec In Lab Darrell Glasgow MD HEMATOLOGY ORDERABLES Performing Organization Address City/[facility]/ZIP Code Phon e Number [address] (ABNORMAL) CK (11/29/2019 2:32 PM EDT) athologist Signature CK, Total 3,282 (H) 0 - 200 [facility] Specimen Anatomical Collection Method Collection Time Receive d Time (Source) Location / / Volume Laterality Blood specimen 11/29/2019 2:32 PM 020 2:32 (specimen) EDT PM EDT Resulting Agency Comment Spec In Lab Gretchen Yoon MD CHEMISTRY ORDERABLES Performing Organization Address City/State/[place] [address] (ABNORMAL) Troponin (11/29/2019 2:32 PM EDT) athologist Signature Troponin-T 20.33 (H) 0.00 - MELINA MONAE 0.00 ng/mL [facility] Comment: The 99th percentile [...] additional sample may be indicated. Reference: Third [place] Definition of Myocardial Infarction. Journal of the [place] [employer] 2012;60:1581-98 Specimen Anatomical Collection Method Collection Time Receive d Time (Source) Location / / Volume Laterality Blood specimen 11/29/2019 2:32 PM 020 2:32 (specimen) EDT PM EDT Resulting Agency Comment Spec In Lab Gretchen Yoon MD CHEMISTRY ORDERABLES Performing Organization Address [facility]/[place] [address] (ABNORMAL) APTT (11/29/2019 2:32 PM EDT) P athologist Signature PTT 114 25 - 37 [facility] (Critical) [facility] LABORATORY Comment: Critical [...] Yoon MD HEMATOLOGY ORDERABLES Performing Organization Address City/[facility]/[place] [address] (ABNORMAL) Prothrombin Time (11/29/2019 2:32 PM EDT) P athologist Signature PT 13.5 (H) 9.4 - 12.5 [facility] LABORATORY INR 1.2 [facility] [...] Organization Address City/State/[place] [address] (ABNORMAL) Hepatic Function Panel (11/29/2019 2:32 PM EDT) P athologist Signature Total Protein 6.3 6.1 - 8.0 [facility] gm/dL [facility] Albumin 3.6 3.2 - 5.2 MELINA OLIVIA gm/dL [facility] AST 257 (H) 0 - 39 [facility] unit/L [facility] ALT 50 0 - 55 [facility] unit/L [facility] Alk Phos 84 40 - 130 [facility] unit/L [facility] HOSPITAL LABORATORY Total 0.3 0.2 - 1.3 [facility] Bilirubin mg/dL [facility] Bili, Direct 0.1 0.0 - 0.3 [facility] mg/dL [facility] Specimen Anatomical Collection Method Collection Time Receive d Time (Source) Location / / Volume Laterality Blood specimen 11/29/2019 2:32 PM 020 2:32 (specimen) EDT PM EDT Resulting Agency Comment Spec In Lab Gretchen Yoon MD CHEMISTRY ORDERABLES Performing Organization Address City/[facility]/[place] [address] (ABNORMAL) pro-Brain Natriuretic Peptide (11/29/2019 2:32 PM EDT) P athologist Signature ProBNP 272 (H) <=125 pg/mL [facility] Specimen Anatomical Collection Method Collection Time Receive d Time (Source) Location / / Volume Laterality Blood specimen 11/29/2019 2:32 PM 020 2:32 (specimen) EDT PM EDT Resulting Agency Comment Spec In Lab Gretchen Yoon MD CHEMISTRY ORDERABLES Performing Organization Address City/[facility]/ZIP Code Phon e Number [address] Magnesium (11/29/2019 2:32 PM EDT) athologist Signature Magnesium 0.76 0.69 - 1.07 [facility] mmol/L [facility] Specimen Anatomical Collection Method Collection Time Receive d Time (Source) Location / / Volume Laterality Blood specimen 11/29/2019 2:32 PM 020 2:32 (specimen) EDT PM EDT Resulting Agency Comment Spec In Lab Gretchen Yoon MD CHEMISTRY ORDERABLES Performing Organization Address City/[facility] Code Phon e Number [address] (ABNORMAL) Basic Metabolic Panel (non-fasting) (11/29/2019 2:32 PM EDT) athologist Signature Glucose Lvl 149 65 - 199 [facility] mg/dL [facility] Comment: Diabetes: >=200 mg/dL plus symp toms BUN 16 10 - 20 mg/dL [facility] Creatinine 0.94 0.80 - 1.50 mg/dL [facility] Sodium 135 135 - 145 mmol/L [facility] Potassium 4.5 3.5 - 5.0 mmol/L [facility] Comment: Please note: ??Patients [...] Anion Gap 15 5 - 15 mmol/L [facility] Calcium 8.0 (L) 8.5 - 10.5 mg/dL [facility] LABORATORY Estimated GFR 80 >=60 mL/min/1.73 m?? [facility] Comment: The eGFR was calculated using the CKD-EP I equation. As with all creatinine based estimates of kidney function, eGFR values calculated with the CKD-EPI equation are not accurate in patients wi th acute kidney failure, extremes of body mass or the acutely ill. [email or web address]/[facility] eGFR 93 >=60 mL/min/1.73 m?? [facility] Comment: The eGFR was calculated using the CKD-EP I equation. As with all creatinine based estimates of kidney function, eGFR values calculated with the CKD-EPI equation are not accurate in patients wi th acute kidney failure, extremes of body mass or the acutely ill. http://[employer]/[facility] Specimen Anatomical Collection Method Collection Time Receive d Time (Source) Location / / Volume Laterality Blood specimen 11/29/2019 2:32 PM 020 2:32 (specimen) EDT PM EDT Resulting Agency Comment Spec In Lab Gretchen Yoon MD CHEMISTRY ORDERABLES Performing Organization Address City/State/ZIP Code Phon e Number [place] [id number] HOSPITAL LAB[address]ATORY Drive EKG 12 Lead (11/29/2019 11:38 AM EDT) [facility] gist Method Time Signature Ventricular rate 60 BPM MUSE SYSTEM Atrial Rate 60 BPM MUSE SYSTEM P-R Interval 140 ms MUSE SYSTEM QRS Duration 86 ms MUSE SYSTEM Q-T Interval 474 ms MUSE SYSTEM QTC Calculated 474 ms MUSE SYSTEM (Bezet) Calculated P Reserve 48 degrees MUSE SYSTEM Calculated R Reserve 14 degrees MUSE SYSTEM Calculated T Reserve 58 degrees MUSE SYSTEM INTERPRETATION Normal sinus [...] Laterality Volume Narrative 11/30/2019 1:09 PM EDT ?[facility] ? Cardiac Cathete rization/Intervention Report ? Patient Name: Angel Luis Salinas. ? Procedure Date: 11/29/2019 ? A #: [id number] ? Primary Physician: Gretchen Yoon ? Case #: [id number] ? File Name: [id number] ? Catheterization Order Number: [id number] ? [facility] ? Final Report [place], [place] ? Patient Name: ? Angel Luis Salinas ? ID#: ?[id number] ? : ?1945 ? Procedure Date: ? November 29, 2019 ? Case #: ? [id number] ? Room: ? 5 ? Case Physician: [...] was Emergent. The indication for ?the labor and employment paralegal visit is ACS less than or equal [...] administered prior to arrival in the labor and employment paralegal. ?Recommended anti-platelet/anti- thrombotic regimen: ?Continue aspirin 81 mg daily fo r indefinitely. ?Continue clopidogrel 75 mg marco a y for 12 months then stop. ?These recommendations are made at the time of the intervention. Patient ?and provider preferences or a c hanging clinical situation may require ?modification of this regimen. C onsult [facility] Interventional Cardiology for ?questions. ? Conclusions: ?* [...] the sedation nurse. ??Case time = 01:59. ?Aries Conrad d the coronary angiography, left heart ?catheterization, stent insertion-c oronary, ABG and embolic ?protection/thrombectomy-coronary. ? Gretchen Yoon M.D. ? Electronically Signed by: Gretchen lockett M.D. ? Report Finalized: 11/30/2019 ??13:04 ? Report Last Ammended: 01/01/2020 ??16:32 ? Procedure Note Gretchen Yoon MD - 01/01/2020Formatt ing of this note might be different from the original. [facility] Cardiac Catheterization/Intervention Re port Patient Name: Angel Luis Salinas Procedure Date: 11/29/2019 A #: [id number] Primary Physician: Gretchen Yoon Case #: [id number] File Name: [id number] Catheterization Order Number: [id number] [facility] Final Report [place], [place] Patient Name: Angel Luis Salinas ID#: [id number] : 1945 Procedure Date: November 29, [...] was designated as ASA Class IV. The [facility] clinical frailty scale is 4: Vulnerable. Diagnostic Tests: Electrocardiography: EKG was assessed by ECG. EKG was Abnorm al. EKG showed ST Deviation >= 0.5 mm. Medications Prior to Procedure: Aspirin. Indications for Diagnostic Cath: The priority of the diagnostic procedur e was Emergent. The indication for the labor and employment paralegal visit is ACS less than or equal [...] prior t o arrival in the labor and employment paralegal. Recommended anti-platelet/anti-thrombot ic regimen: Continue aspirin 81 mg daily for indefi nitely. Continue clopidogrel 75 mg daily for 12 months then stop. These recommendations are made at the t loyda of the intervention. Patient and provider preferences or a changing clinical situation may require modification of this regimen. Consult [facility] Interventional Cardiology for questions. [...] - [facility] 7.45 [facility] POC PCO2 33 (L) 35 - 45 [facility] mmHg [facility] POC PO2 56 (L) 85 - 104 [facility] LABORATORY POC Base Excess -8.0 (L) -3.0 - 3.0 [facility] K mmol/L [facility] POC HCO3 17.4 (L) 20.0 - [facility] 26.0 [facility] Sodium 137 135 - 145 [facility] mmol/L [facility] POC Potassium 3.6 3.5 - 5.0 [facility] mmol/L [facility] POC Ionized Ca 1.15 1.15 - [facility] 1.33 [facility] POC Hematocrit 37.0 (L) 40.0 - [facility] 51.0 % [facility] POC Calc Hgb 12.6 (L) 13.7 - [facility] 17.5 gm/dL [facility] Comment: The calculation of [...] Address City/State/[place] [address] EKG 12 Lead (11/29/2019 9:01 AM EDT) Component Value Ref Range Test Analysis Performed Pathologis t Method Time At Signature Ventricular rate 80 BPM MUSE SYSTEM Atrial Rate 79 BPM MUSE SYSTEM QRS Duration 94 ms MUSE SYSTEM Q-T Interval 436 ms MUSE SYSTEM QTC Calculated 502 ms MUSE SYSTEM (Bezet) Calculated R Reserve 54 degrees MUSE SYSTEM Calculated T Reserve 80 degrees MUSE SYSTEM INTERPRETATION Normal sinus [...] 9:01 AM 0 5:12 EDT PM EDT Grecthen Yoon MD ECG ORDERABLES Performing Organization Address [...] doses, Starting on 12/07/19 at 1236, Until Sun12/08/19 at 1811, Elevated [...] (1 patch), Transdermal, DAILY, First dose on Sun11/30/19 at 1615, Until Discontinued, Routine Given 12/07/2019 [...] RN) 150 mg, Intravenous, ONCE, 1 dose, Pierce at 1315, Warning Vesicant/Irritant Medication , Routine [...] D) 0517 (New Bag - Provider: Mukesh Bentley, NIURKA)0717 (Stopped - Provider: Amaya Anderson RN) 2 g, Intravenous, ONCE, 1 dose, 12/06/19 at 0515, Ad national stormwater leader over 120 Minutes magnesium sulfate 2 g [...] Bentley RN) 0-8,000 Units, Intravenous, BOLUS PER [place] [...] mg 1241 (Give n - Provider: Amaya Anderson, RN) 5 mg, Intravenous, EVERY 5 MIN [...] PRN, Startin g 11/30/19 at 2016, Until 12/08/19 at 181, hypokalemia, Administer for [...] 11/30/19 at 2017, Until Sun12/08/19 at 1811, hypokalemia
Administer for serum potassium (mMol/L) of 3.9 - 4 See instructions for Potassium Protocol in online policies.
Routine Or potassium chloride ER (K-Dur/Klor-Con) tablet 40 mEqJump to med 40 mEq, Oral, EVERY 4 HOURS PRN, Startin g Pierce 11/30/19 at 2016, Until Sun12/08/19 at 1811, hypokalemia
Administer for serum potassium (mMol/L) of 3.6 - 3.8 See instructions for Potassium Protocol in online policies.
Routine documented in this encounter Care Teams Roustabout Crew Leader Relationship Specialty Start Date End Date France Lam MD PCP - General 05/02/13 02/04/20 [address] [place] [address] documented as of this encounter
--- OUTSIDE RECORDS SUMMARY | 2022-05-09 11:15 | XMS_ITS | Encounter Summary ---
:1945 Author Organization [facility] [place] [address] Care Team Providers Name Role Phone France Lam MD Primary Care Provider Encounter Details Date Type Department Care Team Description 05/13/2013 Ancillary Vascular Surgery at Claritza Hall (Primary Appointment [facility] Cesilia Sebastian, [place] Dx) [place] [id number] Social History Tobacco Use Types Packs/Day Years Used Date Current Every Day Smoker Cigars 0.5 Sex Assigned at Date Recorded Not on file documented as of this encounter Plan of Treatment Upcoming Encounters Date Type Specialty Care Team Description 06/30/2022 Office Visit Endocrinology Alan Terrell MD [facility] ER ENDOCRINOLOGY [place], [place] [address] (Wo rk) documented as of this encounter Procedures Procedure Name Priority Date/Time Associated Diagnosis Comme nts IGNACIO, LEGS, MULTIPLE Routine 05/13/2013 8:34 AM Calf pain Re sults for this LEVELS EST procedure are i n the results section. documented in this encounter Results IGNACIO, legs, multiple levels (05/13/2013 8:34 AM EST) Component Value Ref Test Analysis Performed At [facility] Range Method Time Signature VB Text VASCUBASE Report Department: Vascular Surgery Lab Patient: [id number] (ANGEL LUIS HI) CPT Code: 03761 ICD-9: 440.21 Referring Physician: FRANCE LAM Indication: [...] Posterior Tibial (Ankle) Art derrell ??84 ?0.64 ??Burt- Biphasic ?? Interpretation: RIGHT: ??Mild lower extremity [...] limb documented in this encounter Care Teams Data Reduction Technician Relationship Specialty Start Date End Date France Lam MD PCP - General 05/02/13 02/04/20 [address] [place] [address] documented as of this encounter
--- OUTSIDE RECORDS SUMMARY | 2022-05-09 11:15 | XMS_ITS | Encounter Summary ---
:1945 Author Organization [facility] [place] [address] Care Team Providers Name Role Phone France Lam MD Primary Care Provider Encounter Details Date Type Department Care Team Description 05/13/2013 Orders Only Vascular Surgery at Anabella Sanchez PVD (xi luis [facility] clinical resource coordinator disease) [facility] (Primary Dx) [place] [address] Social History Tobacco Use Types Packs/Day [...] 06/30/2022 Office Visit Endocrinology Alan Terrell MD [facility] ER DR ENDOCRINOLOGY [place], [place] [address] (Wo rk) documented as of this encounter Visit Diagnoses Diagnosis PVD (peripheral vascular disease) - Prim kayy Peripheral vascular disease, unspecified documented in this encounter Care Teams Wheel Blocker Relationship Specialty Start Date End Date France Lam MD PCP - General 05/02/13 02/04/20 [address] [place] [address] documented as of this encounter
--- OUTSIDE RECORDS SUMMARY | 2022-05-09 11:15 | XMS_ITS | Encounter Summary ---
:1945 Author Organization [facility] Address [facility] [place] [address] Care Team Providers Name Role Phone France Lam MD Primary Care Provider Reason for Visit Reason Comments Claudication Encounter Details Date Type Department Care Team Description 05/13/2013 Office Visit Vascular Surgery at David Sim from [facility] MD Bobby peripheral vascular [facility] dis ease, left (Primary Drive DR [place]) [place], [place] VASCULAR SURGERY [address] [place] [address] [phone] Social History Tobacco Use Types Packs/Day Years [...] Endocrinology Alan Terrell MD [facility] [address] [place] [address] (Wo rk) documented as of this encounter Visit Diagnoses Diagnosis Claudication from peripheral vascular di sease, left - Primary Peripheral vascular disease, unspecified documented in this encounter Care Teams Home Companion Relationship Specialty Start Date End Date France Lam MD PCP - General 05/02/13 02/04/20 [address] [place] [address] documented as of this encounter
--- OUTSIDE RECORDS SUMMARY | 2022-05-09 11:15 | XMS_ITS | Encounter Summary ---
:1945 Author Organization [facility] [place] [address] Care Team Providers Name Role Phone France Lam MD Primary Care Provider Encounter Details Date Type Department Care Team Description 11/29/2019 External Results [place] [address] Social History Tobacco Use Types Packs/Day Years Used Date Current Every Day Smoker Cigars 0.5 Sex Assigned at Date Recorded Not on file documented as of this encounter Plan of Treatment Upcoming Encounters Date Type Specialty Care Team Description 06/30/2022 Office Visit Endocrinology Alan Terrell MD [facility] ER ENDOCRINOLOGY [place], [place] [address] (Wo rk) documented as of [...] that is no t available. Historical Provider MD COTE MGR SCAN EXT ORDR/RSLT Scan Doc: ECG (11/29/2019) Narrative This result has an attachment that is no t available. Historical Provider MD COTE MGR SCAN EXT ORDR/RSLT documented in this encounter Visit Diagnoses Not on filedocumented in this encounter Care Teams Haz Tech Relationship Specialty Start Date End Date France Lam MD PCP - General 05/02/13 02/04/20 [address] [place] [address] documented as of this encounter
[2022-05-11 10:54] VITALS: BP 124/59; PULSE 45; O2SAT 93
--- OUTSIDE RECORDS SUMMARY | 2022-05-16 13:52 | XMS_ITS | Encounter Summary ---
:1945 Author Organization [facility] [place] [address] Care Team Providers Name Role Phone France Lam MD Primary Care Provider Encounter Details Date Type Department Care Team Description 12/29/2019 Ancillary Procedure Radiology Library at Ivette Salas [facility] [place] [address] [place] [address] [phone] (Wo rk) Social History Tobacco Use Types Packs/Day Years Used Date Smoking Tobacco: Every Day Cigarettes 0.5 Cigars Sex Assigned at Date Recorded Not on file documented as of this encounter Plan of Treatment Upcoming Encounters Date Type Specialty Care Team Description 06/30/2022 Office Visit Endocrinology Alan Terrell MD [facility] ER ENDOCRINOLOGY [place], [place] [address] (Wo rk) documented as of [...] is for storage only. Alfreda Salas APRN [facility] FILM LIBRARY ORDERABLES Performing Organization Address City/State/ZIP Code Phon e Number RAD [place], [place] documented in this encounter Visit Diagnoses Not on filedocumented in this encounter Care Teams Production Line Technician Relationship Specialty Start Date End Date France Lam MD PCP - General 05/02/13 02/04/20 [address] [place] [address] documented as of this encounter
--- OUTSIDE RECORDS SUMMARY | 2022-05-16 13:52 | XMS_ITS | Encounter Summary ---
:1945 Author Organization [facility] Address [address] [place] [address] Care Team Providers Name Role Phone Jennifer Gomez INSURANCE CONSULTANT Primary Care Provider Encounter Details Date Type Department Care Team Description 02/15/2022 Lab Requisition [facility] Outr Resulting Lab, Pathology & Laboratory Provider [facility] [address] [place] [id number] Social History Tobacco Use Types Packs/Day Years [...] Free 9.3 (H) 2.8 - 5.3 02/15/2022 [facility] pg/mL 21:51 EDT CENTER LABORATORY SERVICES Specimen Anatomical Collection Method Collection Time Receive d Time (Source) Location / / Volume Laterality Blood VENOUS BLOOD / 02/15/2022 10:37 Unknown EDT 21:20 EDT Provider Outr Resulting Lab CHEMISTRY & BLOOD GAS CHLOE Duncan Organization Address City/State/ZIP Code Phon e Number [facility] LABORATORY [address] [place] [address] SERVICES documented in this encounter Visit Diagnoses Not on filedocumented in this encounter Care Teams Optometric Aide Relationship Specialty Start Date End Date Jennifer Gomez, INSURANCE CONSULTANT PCP - General 05/10/15 [facility] [address] [place] [address] documented as of this encounter
--- OUTSIDE RECORDS SUMMARY | 2022-05-16 13:52 | XMS_ITS | Encounter Summary ---
:1945 Author Organization [facility] Address [address] [place] [address] Care Team Providers Name Role Phone Jennifer Gomez COMMERCIAL STRIPPER Primary Care Provider Encounter Details Date Type Department Care Team Description 08/26/2021 Lab Requisition [facility] Najma Valladares for other Pathology & M, DO general examination Laboratory Medicine - [address] [facility] [address] [place] [id number] Social History Tobacco Use Types Packs/Day Years [...] encounter Results SURGICAL PATHOLOGY (08/26/2021 8:45 EST) Component Value Ref Test Analysis Performed Pathologis t Range Method Time At Signature Note to The following 09/02/2021 [facility] Patient pathology results 13:09 EST CENTER have been interpreted LABORATO RY by your pathologist SERVICES and may be available to you before your health provider has had the opportunity to review them. Please allow time for your provider to receive these results and explore management options, if applicable. Final A. RECTUM, POLYP, BIOPSY : 09/02/2021 [facility] Diagnosis - Polypoid submucosal anal glands. 13:09 EST CENTER - Overlying rectal mucosa negative for dysplasia. LABORATORY - See comment. SERVICES Diagnosis This rectal polyp shows a cantor bmucosal collection of anal duct glands causing a polypoid configuration. The morphology and the immunohistochemical profile are consistent with a benign (non-neoplastic) pro 09/02/2021 [facility] Comment cess. Manager Of Enterprise slides of this case were reviewed at the gastrointestinal/liver intradepartmental consultation conference. : [facility] ANTIBODY(CLONE)(BLOCK):RESULT SERVICES CK7 (RN7, Leica) (A1): Strongly positive PAX-8 (MRQ-50, [employer]) (A1): Negative NKX3.1 (Rabbit Polyclonal, [employer]) (A1): Negative GATA3 (L50-823, [employer]) (A1): Negative NOTE: One or more of [...] clinical laboratory testing. Attestation By the signature 09/02/2021 [facility] Electronically below, the attending 13:09 [facility] signed by physician certifies LABORATORY Jacobo, that they have 1) SERVICES Tory roberts MD on personally conducted 09/02/2021 at a gross and/or 1309 microscopic examination of the described specimen(s), and/or personally interpreted the results of laboratory testing of the described specimen(s), and 2) personally rendered or confirmed the above diagnosis. Clinical Flex sigmoidoscopy; 09/02/2021 [facility] AL History diverticulosis, polyp : [facility] SERVICES Gross A. 09/02/2021 [facility] Description Received in formalin mark d with proper patient identification (initials M, J) and rectal polyp is a marr-brown polyp, 0.6 x 0.5 x 0.4 cm. Bisected and entirely submitted in A1. 13: [facility] LABORATORY ESTEFANY NICHOLS(ASCP) 08/26/2021 16:41 SERVICES Performing [facility] 09/02/2021 [facility] AL Lab 13:09 [facility] CENTER LABORATORY SERVICES Scanned 09/02/2021 [facility] Images 13:09 [facility] CENTER LABORATORY SERVICES Specimen Anatomical Collection Method Collection Time Receive d Time (Source) Location / / Volume Laterality Tissue SPECIMEN FROM 08/26/2021 8:45 08/26/2021 RECTUM / Unknown EST 16:37 EST Najma Valladares DO PATHOLOGY ORDERABLES Performing Organization Address City/State/ZIP Code Phon e Number [facility]ORY [address] [place] [address] SERVICES documented in this encounter Visit Diagnoses Diagnosis Encounter for other general examination documented in this encounter Care Teams Change Management Relationship Specialty Start Date End Date Jennifer Gomez NP PCP - General 05/10/15 [facility] [address] [place], [place] [address] documented as of this encounter
--- OUTSIDE RECORDS SUMMARY | 2022-05-16 13:52 | XMS_ITS | Encounter Summary ---
:1945 Author Organization [facility] [place] [address] Care Team Providers Name Role Phone Jovany Lott MD Primary Care Provider Reason for Visit Consultation (Routine) - Closed Specialty Diagnoses / Procedures Referred By Contact Refer red To Contact Cardiology Diagnoses ST elevation (STEMI) myocardial infarction of unspecified site Hyperlipidemia, unspecified PeriDawit muhammad MD [place] [address] [place] [address] [address] [facility] D EPT [address] [place] [address] Fax: Referral ID Status Reason Start Date Expiration Date Visits V isits Requested Authorized [id number] Closed Consult, Test 02/10/2020 02/09/2021 [facility] PCP Updated and/or Approved Encounter Details Date Type Department Care Team Description 03/12/2020 [place] Cardiology [place] [facility] [place]ina Payan Fredrickson type IIa hyperli poproteinemia; (TeleHealth) [facility] Hyperglycemia; [facility] Elevated TSH; [facility] Hypothyroidism, acquired [address] CARDIOLOGY DEPT [phone] [place], [place] [address] Social History Tobacco Use Types Packs/Day Years Used Date Smoking Tobacco: Former Cigarettes 0.5 Quit : 11/29/2019 Cigars Smokeless Tobacco: Former Comments: Quit chew tobacco years and y ears ago Sex Assigned at Date Recorded Not on file documented as of this encounter Progress Notes Melina Payan MD - 03/12/2020 1:00 PM EDT [facility] [place] Heart and [...] Social History: 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 They have [...] medications for this visit. 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 He has multiple cardiovascular risk factors including peripheral artery disease, hyperlipidemia (elevated LDL, depressed HDL), a 87-xvct-dwba history of smoking, and prediabetes. Jovany quit [...] but Jovany replied: I can't drive to [facility] every 2 weeks for that. I explained [...] his departure Follow up in 3 months EMLINA PAYAN MD 03/12/2020 CC: Jovany Lott MD Estefani Camarillo LNA - 03/12/2020 1:00 PM EDT Pt is taken all Med's, Current Bp 136/68 Hr pt wasn't sure. Wt is about 140 lb, Ht 5'7 ISAI Gamino documented in this encounter Plan of Treatment Upcoming Encounters Date Type Specialty Care Team Description 06/30/2022 Office Visit Endocrinology Alan Terrell MD [facility] ER DR ROSARIO [place], [place] [address] (Wo rk) documented as of this encounter Visit Diagnoses Diagnosis Tiny type IIa hyperlipoproteinemi a Pure hypercholesterolemia Hyperglycemia Other abnormal glucose Elevated TSH Other abnormal blood chemistry Hypothyroidism, acquired Unspecified hypothyroidism documented in this encounter Care Teams Addiction Medicine Physician Relationship Specialty Start Date End Date Jovany Lott MD PCP - General Family Medicine 02/05/20 [address] [place] [address] documented as of this encounter
--- OUTSIDE RECORDS SUMMARY | 2022-05-16 13:52 | XMS_ITS | Encounter Summary ---
:1945 Author Organization [facility] Address [address] [address] Care Team Providers Name Role Phone France Lam MD Primary Care Provider Reason for Visit Reason Onset Date Comments TeleHealth 01/08/2020 Appt 01/09/20 Encounter Details Date Type Department Care Team Description 01/08/2020 Telephone Neurology at [facility] Efrain Nicole PA TeleHealth (Appt Formerly [facility] [address] [place] [address] NEUROLOGY [phone] [place], [place] [address] (Wo rk) Social History Tobacco [...] 06/30/2022 Office Visit Endocrinology Alan Terrell MD [facility] ER [place]CR[place]OLOGY [place], [place] [address] (Wo rk) documented as of this encounter Visit Diagnoses Not on filedocumented in this encounter Care Teams Handle Sewer Relationship Specialty Start Date End Date France Lam MD PCP - General 05/02/13 02/04/20 [address] [place] [address] documented as of this encounter
--- OUTSIDE RECORDS SUMMARY | 2022-05-16 13:52 | XMS_ITS | Encounter Summary ---
:1945 Author Organization [facility] [place] [address] Care Team Providers Name Role Phone Jovany Lott MD Primary Care Provider Encounter Details Date Type Department Care Team Description 10/12/2020 Notes Only Cardiology at [facility] Willow Callejas RN [facility] [place] [address] Social History Tobacco Use Types Packs/Day Years Used Date Smoking Tobacco: Former Cigarettes 0.5 Quit : 11/29/2019 Cigars Smokeless Tobacco: Former Sex Assigned at Date Recorded Not on [...] want totalk to my doctor at the [place] and do a little more research before I decide what to do, I'm a little afraid of it. He notes that he has a scheduled clinic visit in November and will discuss with Dr. Garduno at that time. documented in this encounter Plan of Treatment Upcoming Encounters Date Type Specialty Care Team Description 06/30/2022 Office Visit Endocrinology Alan Terrell MD [facility] ER DR [place], [place] [address] (Wo rk) documented as of this encounter Visit Diagnoses Not on filedocumented in this encounter Care Teams Shift Superintendent Caustic Cresylate Relationship Specialty Start Date End Date Jovany Lott MD PCP - General Family Medicine 02/05/20 [address] [place] [address] documented as of this encounter
--- OUTSIDE RECORDS SUMMARY | 2022-05-16 13:52 | XMS_ITS | Encounter Summary ---
:1945 Author Organization [facility] [place] [address] Care Team Providers Name Role Phone Jovany Lott MD Primary Care Provider Encounter Details Date Type Department Care Team Description 11/10/2020 Telephone Cardiology at [facility] [place] [address] Social History Tobacco Use Types Packs/Day [...] Alan Terrell MD [facility] ER ENDOCRINOLOGY [place], [place] [address] (Wo rk) documented as of this encounter Visit Diagnoses Not on filedocumented in this encounter Care Teams Production Administrative Assistant Relationship Specialty Start Date End Date Jovany Lott MD PCP - General Family Medicine 02/05/20 [address] [place] [address] documented as of this encounter
--- OUTSIDE RECORDS SUMMARY | 2022-05-16 13:52 | XMS_ITS | Encounter Summary ---
:1945 Author Organization [facility] Address [facility] [place] [address] Care Team Providers Name Role Phone Jovany Lott MD Primary Care Provider Encounter Details Date Type Department Care Team Description 08/31/2020 [place] [facility] [place]ustino Garduno Atrial fibrillation, unspeci fied type (Primary Dx); (TeleHealth) [facility] MD Jaquan Acute ST elevation myocardial infarction (STEMI) of inferior wall; [facility] Acute systolic CHF (congesti ve heart failure), NYHA class 3, MILVIA/AHA stage C; [place], [place] Center Hyperlipidemia, unspecified hyperlipidem ia type; [address] [place], [place] Intracranial hemorrhage; [phone] PFO (patent foramen ovale); [phone] Claudication fr om peripheral vascular disease, left [...] with ICH, bilateral PE; paroxysmal atrial fibrillation [[id number]: 5]; PAD; HLD; HTN; smoking and PFO,who presents for cardiovascular follow-up. Since our last visit together, he has visited with our expert lipidologist Dr. Valdviia on 03/12/20 (patient not interested in alirocumab [...] a non-culprit artery. S/P DESx3 in the lgdpwwoj-md-tcqvrt RCA. Aspiration thrombectomy performed, and integrellin bolus [...] with ICH, bilateral PE; paroxysmal atrial fibrillation [[id number]: 5]; PAD; HLD; HTN; smoking and PFO, [...] Will also discuss further with his local blog writer, Dr. Mejia. 3. Bilateral PE - Case discussed with Dr. Sanchez above; likely provoked in lieu of his prolonged hospitalization. He has completed at least 6 months of oral A/C (coinciding treatment for his afib). 4. PAD - Continue optimal medical therapy for now. Will place referral for SET/walking program. F/U 3 months Faustino Garduno MD Time spent: 35 minutes Addendum 3/15/21: Called [phone] or [phone] and was able to speak to Dr. Faustino Chou. Pt also sees Dr. Lott in [facility] for local primary care needs. Dr. 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 5RBCs also noted on urinanalysis that subsequently cleared on repeat testing. documented in this encounter Plan of Treatment Upcoming Encounters Date Type Specialty Care Team Description 06/30/2022 Office Visit Endocrinology Alan Terrell MD [facility] ER ENDOCRINOLOGY [place], [place] [address] (Wo rk) documented as of [...] unspecified documented in this encounter Care Teams Rn Staff Relationship Specialty Start Date End Date Jovany Lott MD PCP - General Family Medicine 02/05/[address] [place] [address] [place] [address] documented as of this encounter
--- OUTSIDE RECORDS SUMMARY | 2022-05-16 13:52 | XMS_ITS | Encounter Summary ---
:1945 Author Organization [facility] [place] [address] Care Team Providers Name Role Phone Jovany Lott MD Primary Care Provider Reason for Visit Reason Onset Date Comments Follow-up 06/15/2020 Tobacco Treatment Encounter Details Date Type Department Care Team Description 06/15/2020 Telephone Vascular Surgery at [facility]- [place]T[facility] [place], RN Treatment) [place] [address] Social History Tobacco Use Types Packs/Day [...] updated. Ryan Tran, MSN, RN-BC, NCTTP Tobacco Tomato Pulper Operator [facility] Pager #[phone] documented in this encounter Plan of Treatment Upcoming Encounters Date Type Specialty Care Team Description 06/30/2022 Office Visit Endocrinology Alan Terrell MD [facility] ENDOCRINOLOGY [place], [place] [address] (Wo rk) documented as of this encounter Visit Diagnoses Not on filedocumented in this encounter Care Teams Wood Products Manufacturer Relationship Specialty Start Date End Date Jovany Lott MD PCP - General Family Medicine 02/05/20 [address] [place] [address] documented as of this encounter
--- OUTSIDE RECORDS SUMMARY | 2022-05-16 13:52 | XMS_ITS | Encounter Summary ---
:1945 Author Organization [facility] [place] [address] Care Team Providers Name Role Phone France Lam MD Primary Care Provider Encounter Details Date Type Department Care Team Description 01/16/2020 Telephone Vascular Surgery at [facility] [place] [place] [address] Social History Tobacco Use Types Packs/Day [...] fidelina. Ryan Tran, MSN, RN-BC, NCTTP Tobacco Supervising Deputy [facility] Pager #[phone] documented in this encounter Plan of Treatment Upcoming Encounters Date Type Specialty Care Team Description 06/30/2022 Office Visit Endocrinology Alan Terrell MD [facility] ER DR ROSARIO [place], [place] [address] (Wo rk) documented as of this encounter Visit Diagnoses Not on filedocumented in this encounter Care Teams Highway Engineer Relationship Specialty Start Date End Date France Lam MD PCP - General 05/02/13 02/04/20 [address] [place] [address] documented as of this encounter
--- OUTSIDE RECORDS SUMMARY | 2022-05-16 13:52 | XMS_ITS | Encounter Summary ---
:1945 Author Organization [facility] Address [facility] [place] [address] Care Team Providers Name Role Phone France Lam MD Primary Care Provider Encounter Details Date Type Department Care Team Description 12/22/2019 Telephone Cardiology Riki Stevens, [facility] [place] [address] [facility] [phone] GENERAL INTERNAL MEDICINE [place], [place] [address] (Wo rk) Social History Tobacco [...] Office Visit Endocrinology Echt, Alan Beatty MD [facility] ER DR ROSARIO [place], [place] [address] (Wo rk) documented as of this encounter Visit Diagnoses Not on filedocumented in this encounter Care Teams Customer Advisor Relationship Specialty Start Date End Date France Lam MD PCP - General 05/02/13 02/04/20 [address] [place] [address] documented as of this encounter
--- OUTSIDE RECORDS SUMMARY | 2022-05-16 13:52 | XMS_ITS | Encounter Summary ---
:1945 Author Organization [facility] [address] Care Team Providers Name Role Phone France Lam MD Primary Care Provider Encounter Details Date Type Department Care Team Description 12/23/2019 TH Visit Neurosurgery at [facility] Alfreda Salas Intracranial (TeleHealth) [facility] C, LOSS PREVENTION [place] [address] Center [phone] [place] [address] Social History Tobacco Use Types Packs/Day Years Used Date Smoking Tobacco: Every Day Cigarettes 0.5 Cigars Sex Assigned at Date Recorded Not on file documented as of this encounter Progress Notes Alfreda Salas, LOSS PREVENTION AUDITOR - 12/23/2019 1:30 PM EDT Images from [...] 2 week follow up head [address] at [facility], showing slight decrease in size [...] 3-4 weeks which may be done at [facility] with follow up TOV [facility]. Head CT 12/18/19 Assessment and [...] Alan Terrell MD [facility] DR ENDOCRINOLOGY [place], [place] [address] (Wo rk) documented as of this encounter Visit Diagnoses Diagnosis Intracranial hemorrhage Unspecified intracranial hemorrhage documented in this encounter Care Teams Crusher Operator Relationship Specialty Start Date End Date France Lam MD PCP - General 05/02/13 02/04/20 [address] [place] [address] documented as of this encounter
--- OUTSIDE RECORDS SUMMARY | 2022-05-16 13:52 | XMS_ITS | Encounter Summary ---
:1945 Author Organization [facility] Address [facility] [place] [address] Care Team Providers Name Role Phone France Lam MD Primary Care Provider Encounter Details Date Type Department Care Team Description 12/30/2019 TH Visit Cardiology at [facility] Faustino Garduno Claudication from peripheral vascular disease, left ; (TeleHealth) [facility] MD Jaquan Hyperlipidemia, unspecified hyperlipidem ia type; Drive [facility] Acute ST elevation myocardia l infarction (STEMI) of inferior wall; [place], [place] Center Acute systolic CHF (congestive heart reid lure), NYHA class 3, MILVIA/AHA stage C; [address] [place], [place] Intracranial hemorrhage; [phone] Atrial fibrillation, unspecified type Social History Tobacco [...] with ICH, bilateral PE; paroxysmal atrial fibrillation [[id number]: 5]; PAD; HLD; HTN; smoking and PFO,who [...] CHF (congestive heart failure), NYHA class 3, MLIVIA/AHA stage C 12/03/2019 ??? Intracranial hemorrhage 11/30/2019 [...] a non-culprit artery. S/P DESx3 in the tfadipvb-fs-cjqqdo RCA. Aspiration thrombectomy performed, and integrellin bolus [...] with ICH, bilateral PE; paroxysmal atrial fibrillation [[id number]: 5]; PAD; HLD; HTN; smoking and PFO, [...] 6 months Faustino Garduno MD Time spent: [id number] 0-5min [id number] 6-10min 0204LPP1 11-15min 4061NZU0 16-20min XXXX 2104BZM9 21-30min 4908QEI3 31-40min 5737UOU6 40+ min documented in this encounter Plan of Treatment Upcoming Encounters Date Type Specialty Care Team Description 06/30/2022 Office Visit Endocrinology Alan Terrell MD [facility] [address] [place], [place] [address] (Wo rk) documented as of this [...] type documented in this encounter Care Teams Anchor Tack Puller Relationship Specialty Start Date End Date France Lam MD PCP - General 05/02/13 02/04/20 [address] [place] [address] documented as of this encounter
--- OUTSIDE RECORDS SUMMARY | 2022-05-16 13:52 | XMS_ITS | Encounter Summary ---
:1945 Author Organization [facility] Address [address] [place] [address] Care Team Providers Name Role Phone Jennifer Gomez MELLOWING MACHINE OPERATOR Primary Care Provider Encounter Details Date Type Department Care Team Description 09/07/2020 Lab Requisition [facility] Outr Resulting Lab, Pathology & Laboratory Provider [facility] [address] [id number] Social History Tobacco Use Types Packs/Day Years [...] City/State/ZIP Code Phon e Number [facility] [address] [place] [address] SERVICES COVID-19 TESTING (09/07/2020 9:45 EST) Analysis Performed At Patho logist Time Signature COVID-19 Negative Negative 09/08/2020 [facility] MEDICAL rt-PCR Result 14:27 EST CENTER LABORATORY [...] and its performa nce characteristics determined by [facility]. It has not been cleared or [...] testing. This test is based on the [facility] COVID-19 E mergency Use Authorization (EUA) assay, with minor modification as defined by the FDA Performed on the M[employer] 7 Pro RT-PCR System. Performing Lab [facility] Lab 09/08/2020 14:27 EST [facility] SERVICES Specimen Anatomical Collection Method Collection Time Receive d Time (Source) Location / / Volume Laterality Swab 09/07/2020 9:45 09/07/2020 EST 20:56 EST Provider Outr Resulting Lab MICROBIOLOGY - GENERAL ORD ERABLES Performing Organization Address City/State/ZIP Code Phon e Number [facility] [address] [place] [address] SERVICES documented in this encounter Visit Diagnoses Not on filedocumented in this encounter Care Teams Combination Operator Relationship Specialty Start Date End Date Jennifer Gomez NP PCP - General 05/10/15 [facility] [address] [place] [address] documented as of this encounter
--- OUTSIDE RECORDS SUMMARY | 2022-05-16 13:52 | XMS_ITS | Encounter Summary ---
:1945 Author Organization [facility] Address [address] [place] [address] Care Team Providers Name Role Phone Unavailable Primary Care Provider Unavailable Encounter Details Date Type Department Care Team Description 09/15/2003 Results Only [facility] - Otis Patel MD conversion [address] [facility] [address] [place] [address] [place] [address] (Wo rk) Social History Tobacco Use Types Packs/Day Years Used Date Smoking Tobacco: Never Assessed Sex Assigned at Date Recorded Not on file documented as of this encounter Plan of Treatment Not on filedocumented as of this encounter Procedures Procedure Name Priority Date/Time Associated Diagnosis Comme [facility] SURGICAL PATHOLOGY Routine 09/15/2003 0:00 EST Re sults for this procedure are i n the results section. documented in this encounter Results SURGICAL PATHOLOGY (09/15/2003 0:00 EST) Component Value Ref Test Analysis Performed At [facility] Method Time Signature Pathology SURGICAL PATHOLOGY REPORT ZAYNAB MARINELLI Report: Reports generated via electronic interface contain catherinea l data; MARLI MENDOZA however they are lacking the format of the original report. Caution should be taken when reading/interpreting unformatte d reports. Name: ? ANGEL LUIS SALINAS ? Accession #: ? [id number] ? : ? 1945 (Age: 58) ??M ? Collect Date: ? 09/15/2003 ? Location: ? [facility] ? Receive Date: ? 09/16/2003 ? Provider: OTIS MOSS MD Copy to: MALCOM MCGEE FOOT ROENTGENOLOGIST ? Final Pathologic Diagnosis: ? Skin of [...] City/State/ZIP Code Phon e Number [facility] [address] [place] [address] SERVICES [facility] [address] [place] [address] documented in this encounter Visit Diagnoses Not on filedocumented in this encounter
--- OUTSIDE RECORDS SUMMARY | 2022-05-16 13:52 | XMS_ITS | Encounter Summary ---
:1945 Author Organization [facility] Address [facility] [place] [address] Care Team Providers Name Role Phone Jovany Lott MD Primary Care Provider Encounter Details Date Type Department Care Team Description 10/05/2020 Notes Only Cardiology Merlin Sanchez MD [facility] [place] [address] CARDIOLOGY DEPT. [phone] [place], [place] [address] (Wo rk) Social History Tobacco [...] BEKAH-C with [facility] Merlin Sanchez MD [facility] Pager [phone] documented in this encounter Plan of Treatment Upcoming Encounters Date Type Specialty Care Team Description 06/30/2022 Office Visit Endocrinology EchtAlna MD [facility] ER [address] [place], [place] [address] (Wo rk) documented as of this encounter Visit Diagnoses Not on filedocumented in this encounter Care Teams Obiee Obia Solution Architect Relationship Specialty Start Date End Date Jovany Lott MD PCP - General Family Medicine 02/05/20 [address] [place] [address] documented as of this encounter
--- OUTSIDE RECORDS SUMMARY | 2022-05-16 13:52 | XMS_ITS | Continuity of Care Document ---
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 Z23 Encounter for [place] immunizationwith CBO C Provider Comments: Encounter for Immunization Diagnosis: ICD-10-CM Active Diagnosis ST. H90.3 Sensorineural [facility] hearing loss, CBOC bilateralwith Provider Comments: Asymmetrical sensorineural hearing loss (SNOMED CT [id number]) Diagnosis: ICD-10-CM Active Diagnosis ST. I25.10 Athscl heart [facility] disease of [place] CB OC coronary artery w/o ang pctrswith Provider Comments: Atherosclerotic Heart Disease of [place] Coronary Artery without Angina Pectoris Medications Combined list of outpatient medications from Department of Defense and Veterans Affairs facilities. Medications provided include 1) outpatient medications from the last 15 months, and 2) patient-reported medications. Medication Details Route Status Patient Prescription Prescription Last Ordering Order Source Instructions Expires Number Dispense Provider Date Date AMIODARONE TAKE ONE ORAL ACTIVE 02/14/2023 [id number] JORGE A LOZA HCL TABLET 2 N 2021 [place] (PACERONE) BY MOUTH [place] 200MG TAB EVERY [facility] DAY AFTER ONE MONTH OF TWICE DAILY DOSING THROUGH 02/26/22 APIXABAN TAKE ONE ORAL ACTIVE 2023 [id number] WILLIE LOZA 01/20/ WHITE 5MG TAB TABLET 2 N 2021 [place] BY MOUTH [place] TWICE A [facility] DAY TO HELP PREVENT BLOOD CLOTS (ANTICOA GULATION CCNRX) APIXABAN TAKE ONE ORAL 12/21/2021 [id number] GIANGR ECO 12/30/ WHITE 5MG TAB TABLET [...] DAY FUROSEMIDE TAKE ONE ORAL ACTIVE 12/17/2022 [id number] JORGE A LOZA 12/21/ WHITE 20MG TAB TABLET 2 N 2021 [place] BY MOUTH [place] EVERY [facility] OTHER DAY TO REMOVE FLUID/CO NTROL BLOOD PRESSURE FUROSEMIDE TAKE ONE ORAL 11/12/2021 [id number] SJ PATTON,M 11/12/ ST. 20MG TAB TABLET 2 ICHAEL 2020 [place] BY MOUTH RY CBOC EVERY OTHER DAY TO REMOVE FLUID/CO NTROL BLOOD PRESSURE LISINOPRIL TAKE ONE ORAL ACTIVE 12/17/2022 [id number] JORGE A LOZA 12/21/ WHITE 5MG TAB TABLET 2 N 2021 [place] BY MOUTH [place] EVERY [facility] DAY TO CONTROL BLOOD PRESSURE LISINOPRIL TAKE ONE ORAL DISCONT 06/08/2022 [id number] JORGE A LOZA 06/15/ WHITE 5MG TAB TABLET INUED 2 N 2020 [place] BY MOUTH [place] EVERY [facility] DAY TO CONTROL BLOOD PRESSURE LISINOPRIL TAKE ONE ORAL 06/03/2021 [id number] STANL EY,M 06/08/ ST. 5MG TAB TABLET 1 ICHAEL 2019 [place] BY MOUTH RY CBOC EVERY DAY TO CONTROL BLOOD PRESSURE METOPROLOL TAKE ONE ORAL ACTIVE 02/14/2023 [id number] JORGE A LOZA 02/15/ WHITE SUCCINATE TABLET 2 N 2021 [place] 25MG TAB,SA BY MOUTH [place] EVERY [facility] DAY FOR BLOOD PRESSURE /HEART METOPROLOL TAKE ONE ORAL DISCONT 02/23/2022 [id number] Mery BLEVINS 02/28/ ST. SUCCINATE TABLET INUED 2 ICHAEL 2020 [place] 25MG TAB,SA BY MOUTH RY CB OC EVERY DAY FOR BLOOD PRESSURE /HEART NITROGLYCER TAKE ONE SUBLIN 02/23/2022 [id number] Mery LR 02/28/ ST. 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 RECOMBINANT 2020 ed [...] result by 1.210 Tests performed on Gonsalez WineSimple (405) SN:[id number] [place] eGFR E] IN SERUM Ordering Pr ovider: [facility] [facility] PANEL OR PLASMA Report Releas ed Date/Time: Feb 24, 2021 11:18 AM Reporting Lab: [place] [facility] [address] [facility] [address] Performing Lab: [place] [facility] [address] [facility] [address] CREATININ GLOMERULAR 44 60 04/28 L Specimen Ty pe: PLASMA WHITE E WITH FILTRATION /2020 Comment: For eGFR: Race unknown, if multiply result by 1.210 Tests performed on G[employer]alez WineSimple (405) SN:[id number] [place] eGFR RATE/1.73 Ordering Prov ider: [facility] PANEL SQ Report Released Date/Time: Feb 24, 2021 11:18 AM M.PREDICTED Reporting L ab: [place] [facility] [VOLUME [address] [place] [facility] [place] [address] RATE/AREA] Performing L ab: [place] [facility] IN SERUM OR [address] [place] [facility] [place] [address] PLASMA BY CREATININE- BASED FORMULA (MDRD) CBC NO LEUKOCYTES 5.8 4.5 - 11.0 04/28 Specimen T ype: BLOOD WHITE DIFF [#/VOLUME] /2020 No comment en tered. [place] IN BLOOD BY Ordering Pr ovider: [facility] [facility] AUTOMATED Report Rele ed Date/Time: Feb 24, 2021 11:18 AM COUNT Reporting Lab: [place] [facility] [address] [place] [facility] [place] [address] Performing Lab: [place] [facility] [address] [place] [facility] [place] [address] CBC NO ERYTHROCYTE 4.61 4.23 - 04/28 Specimen Typ e: BLOOD WHITE DIFF S 5.66 /2020 No comment enter ed. [place] [#/VOLUME] Ordering Pro vider: [facility] [facility] IN BLOOD BY Report Rele ased Date/Time: Feb 24, 2021 11:18 AM AUTOMATED Reporting Lab : [place] [facility] COUNT [address] [place] [facility] [place] [address] Performing Lab: [place] [facility] [address] [place] [facility] [place] [address] CBC NO HEMOGLOBIN 13.9 12.8 - 17 04/28 Specimen Ty pe: BLOOD WHITE DIFF [MASS/VOLUM /2020 No comment e ntered. [place] E] IN BLOOD Ordering Pr ovider: MILTON UREÑAOC Report Released Date/Time: Feb 24, 2021 11:18 AM Reporting Lab: [place] [facility] [address] [place] [facility] [place] [address] Performing Lab: [place] [facility] [address] [place] [facility] [place] [address] CBC NO HEMATOCRIT 43.6 39.2 - 04/28 Specimen Type : BLOOD WHITE DIFF [VOLUME 50.4 No comment enter ed. [place] FRACTION] Ordering Prov ider: [facility] [facility] OF BLOOD BY Report Rele ased Date/Time: Feb 24, 2021 11:18 AM AUTOMATED Reporting Lab : [place] [facility] COUNT [address] [place] [facility] [place] [address] Performing Lab: [place] [facility] [address] [place] [facility] [place] [address] CBC NO MCV 94.6 82 - 99 04/28 Specimen Type: B LOOD WHITE DIFF [ENTITIC /2020 No comment ente red. [place] VOLUME] BY Ordering Pro vider: MILTON UREÑAOC AUTOMATED Report Releas ed Date/Time: Feb 24, 2021 11:18 AM COUNT Reporting Lab: [place] [facility] [address] [place] [facility] [place] [address] Performing Lab: [place] [facility] [address] [place] [facility] [place] [address] CBC NO MCH 30.2 26.2 - 04/28 Specimen Type: B LOOD WHITE DIFF [ENTITIC 32.6 /2020 No comment ente red. [place] MASS] BY Ordering Provi adrian: MILTON UREÑA AUTOMATED Report Releas ed Date/Time: Feb 24, 2021 11:18 AM COUNT Reporting Lab: [place] [facility] [address] [place] [facility] [place] [address] Performing Lab: [place] [facility] [address] [place] [facility] [place] [address] CBC NO MCHC 31.9 30.8 - 04/28 Specimen Type: B LOOD WHITE DIFF [MASS/VOLUM 35.1 /2020 No comment e ntered. [place] E] BY Ordering Provid er: MILTON UREÑA AUTOMATED Report Releas ed Date/Time: Feb 24, 2021 11:18 AM COUNT Reporting Lab: [place] [facility] [address] [place] [facility] [place] [address] Performing Lab: [place] [facility] [address] [place] [facility] [place] [address] CBC NO PLATELETS 141 140 - 360 04/28 Specimen Typ e: BLOOD WHITE DIFF [#/VOLUME] /2020 No comment en tered. [place] IN BLOOD BY Ordering Pr ovider: MILTON UREÑA AUTOMATED Report Releas ed Date/Time: Feb 24, 2021 11:18 AM COUNT Reporting Lab: [place] [facility] [address] [place] [facility] [place] [address] Performing Lab: [place] [facility] [address] [place] [facility] [place] [address] CBC NO PLATELET 12.1 9.2 - 12.4 04/28 Specimen Typ e: BLOOD WHITE DIFF MEAN VOLUME /2020 No comment e ntered. [place] [ENTITIC Ordering Provi adrian: MIL[place] UREÑAOC VOLUME] IN Report Relea sed Date/Time: Feb 24, 2021 11:18 AM BLOOD BY Reporting Lab: [place] [facility] AUTOMATED [address] [place] [facility] [place] [address] COUNT Performing Lab: [place] [facility] [address] [place] [facility] [place] [address] CBC NO ERYTHROCYTE 15.0 12.0 - 04/28 Specimen Typ e: BLOOD WHITE DIFF DISTRIBUTIO 16.0 /2020 No comment e ntered. [place] N WIDTH Ordering Provid er: MILTON UREÑAOC [RATIO] BY Report Relea sed Date/Time: Feb 24, 2021 11:18 AM AUTOMATED Reporting Lab : [place] [facility] COUNT [address] [place] [facility] [place] [address] Performing Lab: [place] [facility] [address] [place] [facility] [place] [address] CREATININ CREATININE 1.37 0.5 - 1.5 02/22 Specimen Type: PLASMA WHITE E WITH [MASS/VOLUM /2020 Comment: Fo r eGFR: Race unknown, if multiply result by 1.210 Tests performed on Gonsalez Wing [employer]er Machine Operator (405) SN:[id number] [place] eGFR E] IN SERUM Ordering Pr ovider: MIL[place] UREÑ[facility] PANEL OR PLASMA Report Releas ed Date/Time: Dec 20, 2020 02:24 PM Reporting Lab: [place] [facility] [address] [place] [facility] [place] [address] Performing Lab: [place] [facility] [address] [place] [facility] [place] [address] CREATININ GLOMERULAR 51 60 02/22 L Specimen Ty pe: PLASMA WHITE E WITH FILTRATION /2020 Comment: For eGFR: Race unknown, if multiply result by 1.210 Tests performed on G[employer]alez WineSimple (405) SN:[id number] [place] eGFR RATE/1.73 Ordering Prov ider: [place] UREÑ[facility] PANEL SQ Report Released Date/Time: Dec 20, 2020 02:24 PM M.PREDICTED Reporting L ab: [place] [facility] [VOLUME [address] [place] [facility] [place] [address] RATE/AREA] Performing L ab: [place] [facility] IN SERUM OR [address] [place] [facility] [place] [address] PLASMA BY CREATININE- BASED FORMULA (MDRD) CBC NO LEUKOCYTES 6.8 4.5 - 11.0 02/22 Specimen T ype: BLOOD WHITE DIFF [#/VOLUME] /2020 No comment en tered. [place] IN BLOOD BY Ordering Pr ovider: [facility] AUTOMATED Report Releas ed Date/Time: Dec 20, 2020 02:24 PM COUNT Reporting Lab: [place] [facility] [address] [facility] [address] Performing Lab: [place] [facility] [address] [place] [facility] [place] [address] CBC NO ERYTHROCYTE 5.03 4.23 - 08 Specimen Typ e: BLOOD WHITE DIFF S 5.66 /2020 No comment enter ed. [place] [#/VOLUME] Ordering Pro vider: [place] U[facility] IN BLOOD BY Report Rele ased Date/Time: Dec 20, 2020 02:24 PM AUTOMATED Reporting Lab : [place] [facility] COUNT [address] [facility] [address] Performing Lab: [place] [facility] [address] [facility] [address] CBC NO HEMOGLOBIN 14.9 12.8 - 17 02/22 Specimen Ty pe: BLOOD WHITE DIFF [MASS/VOLUM /2020 No comment e ntered. [place] E] IN BLOOD Ordering Pr ovider: MILTON UREÑA Report Released Date/Time: Dec 20, 2020 02:24 PM Reporting Lab: [place] [facility] [address] [place] [facility] [place] [address] Performing Lab: [place] [facility] [address] [place] [facility] [place] [address] CBC NO HEMATOCRIT 46.7 39.2 - 02/22 Specimen Type : BLOOD WHITE DIFF [VOLUME 50.4 No comment enter ed. [place] FRACTION] Ordering Prov ider: MIL[place] UREÑAOC OF BLOOD BY Report Rele ased Date/Time: Dec 20, 2020 02:24 PM AUTOMATED Reporting Lab : [place] [facility] COUNT [address] [place] [facility] [place] [address] Performing Lab: [place] [facility] [address] [place] [facility] [place] [address] CBC NO MCV 92.8 82 - 99 02/22 Specimen Type: B LOOD WHITE DIFF [ENTITIC /2020 No comment ente red. [place] VOLUME] BY Ordering Pro vider: MIL[place] UREÑAOC AUTOMATED Report Releas ed Date/Time: Dec 20, 2020 02:24 PM COUNT Reporting Lab: [place] [facility] [address] [facility] [address] Performing Lab: [place] [facility] [address] [facility] [address] CBC NO MCH 29.6 26.2 - 08 Specimen Type: B LOOD WHITE DIFF [ENTITIC 32.6 /2020 No comment ente red. [place] MASS] BY Ordering Provi adrian: MILTON UREÑA AUTOMATED Report Releas ed Date/Time: Dec 20, 2020 02:24 PM COUNT Reporting Lab: [place] [facility] [address] [facility] [address] Performing Lab: [place] [facility] [address] [facility] [address] CBC NO MCHC 31.9 30.8 - 02/22 Specimen Type: B LOOD WHITE DIFF [MASS/VOLUM 35.1 /2020 No comment e ntered. [place] E] BY Ordering Provid er: MILTON UREÑA AUTOMATED Report Releas ed Date/Time: Dec 20, 2020 02:24 PM COUNT Reporting Lab: [place] [facility] [address] [facility] [address] Performing Lab: [place] [facility] [address] [facility] [address] CBC NO PLATELETS 159 140 - 360 08 Specimen Typ e: BLOOD WHITE DIFF [#/VOLUME] /2020 No comment en tered. [place] IN BLOOD BY Ordering Pr ovider: MILTON UREÑA AUTOMATED Report Releas ed Date/Time: Dec 20, 2020 02:24 PM COUNT Reporting Lab: [place] [facility] [address] [facility] [address] Performing Lab : [place] [facility] [address] [facility] [address] CBC NO PLATELET 13.0 9.2 - 12.4 08/24 H Specimen Typ e: BLOOD WHITE DIFF MEAN VOLUME /2020 No comment e ntered. [place] [ENTITIC Ordering Provi adrian: MILTON UREÑA VOLUME] IN Report Relea sed Date/Time: Dec 20, 2020 02:24 PM BLOOD BY Reporting Lab: [facility] [address] [facility] [address] COUNT Performing Lab[facility] [address] [facility] [address] CBC NO ERYTHROCYTE 14.6 12.0 - 0824 Specimen Typ e: BLOOD WHITE DIFF DISTRIBUTIO 16.0 No comment e ntered. [place] N WIDTH Ordering Provid er: [facility] [RATIO] BY Report Relea sed Date/Time: Dec 20, 2020 02:24 PM AUTOMATED Reporting Lab : [facility] COUNT [address] [facility] [address] Performing Lab: [facility] [address] [facility] [address] P4 UREA 20 7 - 25 08 Specimen Type: P LASMA ST. GLU,BUN,C NITROGEN /2020 Comment: For eGFR: Race unknown, if multiply result by 1.210 Tests performed on G[employer]alez WineSimple (405) SN:[id number] IVORY BECKETT [MASS/VOLUM Ordering Provider: GRETCHEN PEREZ CA E] IN SERUM Report Rele ased Date/Time: Feb 22, 2021 10:13 AM OR PLASMA Reporting Lab : [facility] [address] [facility] [address] Performing Lab: [facility] [address] [facility] [address] P4 SODIUM 133 135 - 145 08/24 L Specimen Type: PLASMA ST. GLU,BUN,C [MOLES/VOLU /2020 Comment: For eGFR: Race unknown, if multiply result by 1.210 Tests performed on G[employer]alez WineSimple (405) SN:[id number] IVORY BECKETT ME] IN Ordering Prov ider: GRETCHEN PEREZ CA SERUM OR Report Release d Date/Time: Feb 22, 2021 10:13 AM PLASMA Reporting Lab: [facility] [address] [facility] [address] Performing Lab: [facility] [address] [facility] [address] P4 POTASSIUM 4.5 3.5 - 5.0 02/22 Specimen Typ e: PLASMA ST. GLU,BUN,C [MOLES/VOLU /2020 Comment: For eGFR: Race unknown, if multiply result by 1.210 Tests performed on G[employer]alez WineSimple (405) SN:[id number] IVORY BECKETT HI] IN Ordering Prov ider: GRETCHEN PEREZ CA SERUM OR Report Release d Date/Time: Feb 22, 2021 10:13 AM PLASMA Reporting Lab: [facility] [address] [place] [facility] [place] [address] Performing Lab: [facility] [address] [place] [facility] [place] [address] P4 CHLORIDE 102 100 - 110 02/22 Specimen Type : PLASMA ST. GLU,BUN,C [MOLES/VOLU /2020 Comment: For eGFR: Race unknown, if multiply result by 1.210 Tests performed on G[employer]alez WineSimple (405) SN:[id number] IVROY BECKETT HI] IN Ordering Prov ider: GRETCHEN PEREZ CA SERUM OR Report Release d Date/Time: Feb 22, 2021 10:13 AM PLASMA Reporting Lab: [facility] [address] [place] [facility] [place] [address] Performing Lab: [facility] [address] [place] [facility] [place] [address] P4 CARBON 21 20 - 30 02/22 Specimen Type: P LASMA ST. GLU,BUN,C DIOXIDE, /2020 Comment: For eGFR: Race unknown, if multiply result by 1.210 Tests performed on Gonsalez WineSimple (405) SN:[id number] IVORY BECKETT [facility] Ordering Prov ider: GRETCHEN PEREZ S,CA [MOLES/VOLU Report Rele ased Date/Time: Feb 22, 2021 10:13 AM HI] IN Reporting Lab: [facility] SERUM OR [address] [place] [facility] [place] [address] PLASMA Performing Lab: [facility] [address] [place] [facility] [place] [address] P4 ANION GAP 10 4 - 16 02/22 Specimen Type: PLASMA ST. GLU,BUN,C IN SERUM OR /2020 Comment: For eGFR: Race unknown, if multiply result by 1.210 Tests performed on Gonsalez Wing [employer]er Machine Operator (405) SN:[id number] MARCELA NYELYTE PLASMA Ordering Prov ider: GRETCHEN PEREZ CA Report Released Date/Time: Feb 22, 2021 10:13 AM Reporting Lab: [facility] [address] [facility] [address] [facility]forming [facility]: [facility] [address] [facility] [address] P4 GLUCOSE 106 65 - 100 08/24 H Specimen Type: PLASMA ST. GLU,BUN,C [MASS/VOLUM /2020 Comment: For eGFR: Race unknown, if multiply result by 1.210 Tests performed on G[employer]alez [employer] Machine Operator (405) SN:[id number] MARCELA LOPEZATLYTE E] IN SERUM Ordering Provider: GRETCHEN PEREZ CA OR PLASMA Report Releas ed Date/Time: Feb 22, 2021 10:13 AM Reporting Lab: [facility] [address] [facility] [address] Performing Lab: [facility] [address] [facility] [address] P4 CREATININE 1.37 0.5 - 1.5 02/22 Specimen Ty pe: PLASMA ST. GLU,BUN,C [MASS/VOLUM /2020 Comment: For eGFR: Race unknown, if multiply result by 1.210 Tests performed on Gonsalez [employer] Machine Operator (405) SN:[id number] MARCELA NYELYTE E] IN SERUM Ordering Provider: GRETCHEN PEREZ CA OR PLASMA Report Releas ed Date/Time: Feb 22, 2021 10:13 AM Reporting Lab: [facility] [address] [facility] [address] Performing Lab: [facility] [address] [facility] [address] P4 CALCIUM 9.6 8.5 - 10.5 02/22 Specimen Type : PLASMA ST. GLU,BUN,C [MASS/VOLUM /2020 Comment: For eGFR: Race unknown, if multiply result by 1.210 Tests performed on Gonsalez Wing [employer]er Machine Operator (405) SN:[id number] MARCELA NYELYTE E] IN SERUM Ordering Provider: ANA,GRETCHEN CBOC S,CA OR PLASMA Report Releas ed Date/Time: Feb 22, 2021 10:13 AM Reporting Lab: [facility] [address] [facility] [address] Performing Lab: [place] [facility] [address] [facility] [address] P4 GLOMERULAR 51 60 02/22 L Specimen Type : PLASMA ST. GLU,BUN,C FILTRATION /2020 Comment: F or eGFR: Race unknown, if multiply result by 1.210 Tests performed on G[employer]alez WineSimple (405) SN:[id number] MARCELA REAT,LYTE RATE/1.73 Ordering Pr ovider: GRETCHEN PEREZ CBOC S,CA SQ Report Released Date/Time: Feb 22, 2021 10:13 AM M.PREDICTED Reporting L ab: [facility] [facility] [VOLUME [address] [facility] [address] RATE/AREA] Performing L ab: [facility] IN SERUM OR [address] [facility] [address] PLASMA BY CREATININE- BASED FORMULA (MDRD) LIVER PROTEIN 8.0 6.0 - 8.5 02/22 Specimen Type: PLASMA ST. PROFILE [MASS/VOLUM /2020 Comment: Fo r eGFR: Race unknown, if multiply result by 1.210 Tests performed on Ampulse (405) SN:[id number] MARCELA Zhao] IN SERUM Ordering Pr ovider: GRETCHEN PEREZ CBOC OR PLASMA Report Releas ed Date/Time: Feb 22, 2021 10:13 AM Reporting Lab: [facility] [address] [facility] [address] Performing Lab: [facility] [place] [facility] [address] [facility] [address] LIVER ALBUMIN 4.0 3.2 - 5.0 02/22 Specimen Type: PLASMA ST. PROFILE [MASS/VOLUM /2020 Comment: Fo r eGFR: Race unknown, if multiply result by 1.210 Tests performed on Ampulse (405) SN:[id number] MARCELA E] IN SERUM Ordering Pr ovider: GRETCHEN PEREZ OR PLASMA Report Releas ed Date/Time: Feb 22, 2021 10:13 AM Reporting Lab: [facility] [address] [facility] [address] Performing Lab: [facility] [address] [place] [facility] [place] [address] LIVER BILIRUBIN.T 0.6 0.2 - 1.2 02/22 Specimen T ype: PLASMA ST. PROFILE OTAL /2020 Comment: For eG FR: Race unknown, if multiply result by 1.210 Tests performed on G[employer]alez WineSimple (405) SN:[id number] [facility] [MASS/VOLUM Ordering Pr ovider: GRETCHEN PEREZ E] IN SERUM Report Rele ased Date/Time: Feb 22, 2021 10:13 AM OR PLASMA Reporting Lab : [facility] [address] [facility] [address] Performing Lab: [facility] [address] [facility] [address] LIVER ALKALINE 75 40 - 150 02/22 Specimen Type: PLASMA ST. PROFILE PHOSPHATASE /2020 Comment: Fo r eGFR: Race unknown, if multiply result by 1.210 Tests performed on Gonsalez WineSimple (405) SN:[id number] [facility] [ENZYMATIC Ordering Pro vider: GRETCHEN PEREZ ACTIVITY/VO Report Rele ased Date/Time: Feb 22, 2021 10:13 AM LUME] IN Reporting Lab: [facility] SER[facility] OR [address] [facility] [address] PLASMA Performing Lab: [facility] [address] [place] [facility] [place] [address] LIVER ALANINE 16 7 - 52 02/22 Specimen Type: P LASMA ST. PROFILE AMINOTRANSF Comment: Fo r eGFR: Race unknown, if multiply result by 1.210 Tests performed on Gonsalez WineSimple (405) SN:[id number] [facility] ERASE Ordering Provid er: GRETCHEN PEREZ [ENZYMATIC Report Relea sed Date/Time: Feb 22, 2021 10:13 AM ACTIVITY/VO Reporting L ab: [facility] LUME] IN [address] [facility] [address] SERUM OR Performing Lab : [facility] [address] [place] [facility] [place] [address] LIVER ASPARTATE 17 5 - 34 02/22 Specimen Type: PLASMA ST. PROFILE AMINOTRANSF Comment: Fo r eGFR: Race unknown, if multiply result by 1.210 Tests performed on Gonsalez Wing [employer]er Machine Operator (405) SN:[id number] [facility] ERASE Ordering Provid er: GRETCHEN PEREZ [ENZYMATIC Report Relea sed Date/Time: Feb 22, 2021 10:13 AM ACTIVITY/VO Reporting L ab[facility] IN [address] [facility] [address] SERUM OR Performing Lab : [facility] PLASMA [address] [facility] [address] LIPOPROTE CHOLESTEROL 361 0 - 199 08/24 H Specimen T ype: PLASMA ST. IN [MASS/VOLUM /2020 Comment: Fo r eGFR: Race unknown, if multiply result by 1.210 Tests performed on [employer] (405) SN:[id number] [facility] CHOLESTER E] IN SERUM Ordering Provider: GRETCHEN PEREZ OL FRACT. OR PLASMA Report Rele ased Date/Time: Feb 22, 2021 10:13 AM PANEL Reporting Lab: [facility] [address] [facility] [address] Performing Lab: [facility] [address] [facility] [address] LIPOPROTE TRIGLYCERID 170 0 - 149 08/24 H Specimen T ype: PLASMA ST. IN E Comment: For eG FR: Race unknown, if multiply result by 1.210 Tests performed on [employer] (405) SN:[id number] [facility] CHOLESTER [MASS/VOLUM Ordering Provider: GRETCHEN PEREZ OL FRACT. E] IN SERUM Report Re leased Date/Time: Feb 22, 2021 10:13 AM PANEL OR PLASMA Reporting Lab : [facility] [address] [facility] [address] [facility]: [facility] [address] [facility] [address] LIPOPROTE CHOLESTEROL 46 40 08/24 Specimen T ype: PLASMA ST. IN IN HDL /2020 Comment: For eG FR: Race unknown, if multiply result by 1.210 Tests performed on [employer] (405) SN:[id number] [facility] CHOLESTER [MASS/VOLUM Ordering Provider: GRETCHEN PEREZ OL FRACT. E] IN SERUM Report Re leased Date/Time: Feb 22, 2021 10:13 AM PANEL OR PLASMA Reporting Lab : [facility] [address] [facility] [address] Performing Lab: [facility] [address] [facility] [address] LIPOPROTE CHOLESTEROL 281 0 - 129 08/24 H Specimen T ype: PLASMA ST. IN IN LDL /2020 Comment: For eG FR: Race unknown, if multiply result by 1.210 Tests performed on Gonsalez Wing Mailer Machine Operator (405) SN:[id number] MARCELA CHOLESTER [MASS/VOLUM Ordering Provider: GRETCHEN PEREZ OL FRACT. E] IN SERUM Report Re leased Date/Time: Feb 22, 2021 10:13 AM PANEL OR PLASMA Reporting Lab : [facility] [place] [facility] BY [address] [facility] [address] CALCULATION Performing Lab: [facility] [address] [facility] [address] VITAMIN COBALAMIN 312 200 - 900 08/24 Specimen Typ e: SERUM ST. B-12 (VITAMIN /2020 Comment: Tests performed on Gonsalez Wing Mailer Machine Operator (405) SN:[id number] MARCELA B12) Ordering Provid er: GRETCHEN PEREZ [MASS/VOLUM Report Rele ased Date/Time: Feb 22, 2021 10:13 AM E] IN SERUM Reporting L ab: [facility] OR PLASMA [address] [facility] [address] Performing Lab: [facility] [address] [facility] [address] GLYCOHEMO HEMOGLOBIN 6.2 4.0 - 5.6 08/24 H Specimen Type: BLOOD ST. GLOBIN A1C/HEMOGLO /2020 Comment: Te sts performed on Gonsalez Wing Mailer Machine Operator (405) SN:[id number] MARCELA (A1C BIN.TOTAL Ordering Prov ider: GRETCHEN PEREZ ONLY) IN BLOOD BY Report Rele ased Date/Time: Feb 22, 2021 10:13 AM HPLC Reporting Lab: [facility] [address] [facility] [address] Performing Lab: [facility] [place] [facility] [address] [facility] [address] VIT D CALCIFEROL 40.8 20 - 50 08/24 Specimen Type : SERUM ST. 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 Location Location Encounter Encounter Reason Attending ADM DC Stat us Disposition Source Details Type Number For Provider Date Date Visit Outpatient [id number] 11/11 WH[facility] E Encounter [id number] /2020 [facility] 39671-7.40 11/11 WH[facility] E Encounter [id number] /2020 [facility] 99095-5.40 11/11 WH[facility] Encounter [id number] /2020 [facility] 36252-2.40 12/13 WH[facility] E En[facility] [id number] /2020 [facility] 02385-5.40 Diagnos ADELITA, 12/20 W [place] PHONE CALL [id number] is: MILTON B /2020 R IVER 11-20 MIN ICD-10- JCT CM [facility] Z79.01 FPC (curren t) use of anticoa gulants
wi th Provide r Comment s: Long-te rm current use of anticoa gulant (SCT [id number] 03) Outpatient [id number] 02/22 WHIT E Encounter [id number] /2020 [facility] OFF[facility] O/P 93314-5.40 Diagnos SÁNCHEZ PEREZ 02/22 ST. 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
wi Provide r Comment s: Long-te rm current use of anticoa gulant (SCT 2995752 03) Outpatient 40 03/02 WH[facility] E Encounter [id number] [facility] COMPREHENS 29950-5.40 Diagnos RADHA, 04/12 ST. ELA [id number] is: [facility] HEARING 39 ICD-10- RY [facility] TEST CM H90.3 Sensori neural hearing loss, bilater al
with Provide r Comment s: Asymmet rical sensori neural hearing loss (SNOMED CT 6565962 09) Outpatient 04/15 WHIT E Encounter [id number] /2021 [place] [facility] OFFICE O/P 50886-3.40 Diagnos PETTIGLIO, 04/28 ST. EST [id number] is: SAMMY A JOHNSB U MINIMAL 02 ICD-10- RY CBOC PROB CM Z23 Encount er for immuniz ation<b r/>with Provide r Comment s: Encount er for Immuniz ation HC PRO 90357-1.40 Diagnos NICOLA LEONE 04/29 W [place]IM[place] PHONE CALL [id number] is: AN RIVE R 11-20 MIN ICD-10- JCT CM [facility] Z79.01 FPC (curren t) use of anticoa gulants
wi th Provide r Comment s: Long-te rm current use of anticoa gulant (SCT 7082909 03) Outpatient [id number] 07/04 WHIT E Encounter [id number] [facility] Outpatient [id number] 03/03 WHIT E Encounter [id number] [facility] Social History Combined list of available smoking, tobacco, and other social history [facility]. 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 An actual copy of the Directive is not included. Date Advance Directive Provider Source 01/15/2019 ADVANCE DIRECTIVE DISCUSSION STEPHANIE HERNANDEZ [facility]
--- OUTSIDE RECORDS SUMMARY | 2022-05-16 13:52 | XMS_ITS | Encounter Summary ---
:1945 Author Organization [facility] Address [address] [place] [address] Care Team Providers Name Role Phone Jennifer Gomez MED ASST Primary Care Provider Encounter Details Date Type Department Care Team Description 03/19/2019 Hospital Encounter [facility]- Sylvia Unknown, Provider, [facility] [phone] [place] [address] (Work) [phone] Social History Tobacco Use Types Packs/Day Years Used Date Smoking Tobacco: Never Assessed Sex Assigned at Date Recorded Not on file documented as of this encounter Discharge Disposition Disposition Code Departure Means Destination Home or Self Alf documented in this encounter Plan of Treatment Not on filedocumented as of this encounter Visit Diagnoses Not on filedocumented in this encounter Care Teams General Sales Manager Relationship Specialty Start Date End Date Jennifer Gomez, MED ASST PCP - General 05/10/15 [facility] [address] [place], [place] [address] documented as of this encounter
--- OUTSIDE RECORDS SUMMARY | 2022-05-16 13:52 | XMS_ITS | Encounter Summary ---
:1945 Author Organization [facility] Address [address] [place] [address] Care Team Providers Name Role Phone Unavailable Primary Care Provider Unavailable Encounter Details Date Type Department Care Team Description 09/02/2003 Results Only [facility] - Otis Patel MD conversion [address] [facility] [address] [place], [place] [phone] [place] [address] (Wo rk) Social History Tobacco Use Types Packs/Day Years Used Date Smoking Tobacco: Never Assessed Sex Assigned at Date Recorded Not on file documented as of this encounter Plan of Treatment Not on filedocumented as of this encounter Procedures Procedure Name Priority Date/Time Associated Diagnosis Comme [facility] SURGICAL PATHOLOGY Routine 09/02/2003 0:00 EST Re sults for this procedure are i n the results section. documented in this encounter Results SURGICAL PATHOLOGY (09/02/2003 0:00 EST) Component Value Ref Test Analysis Performed At [facility] Method Time Signature Pathology SURGICAL PATHOLOGY REPORT ZAYNAB MARINELLI Report: Reports generated via electronic interface contain catherinea l data; MARLI MENDOZA however they are lacking the format of the original report. Caution should be taken when reading/interpreting unformatte d reports. Name: ? ANGEL LUIS SALINAS ? Accession #: ? [id number] ? : ? 1945 (Age: 58) ??M [...] of the lesion is recommended. ??(Dr. Jaz weller)/[employer] Microscopic Description: ? The epidermis is hype [...] and cords of similar melanocytes that show membership correspondent maturation with descent. 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 ??(Dr. Mascorro)/[employer] Document reviewed and electronically signed by: Mai [...] entirely submitted in one cassette. ??(Dr. Alejandro jacobsen)/[facility] End of Report Specimen (Source) Anatomical Collection Method Collection Time Re ceived Time Location / / Volume Laterality 09/02/2003 09/03/2003 15:2 7 EST Otis Moss MD PATHOLOGY ORDERABLES Performing Organization Address City/State/ZIP Code Phon e Number [facility] [address] [place] [address] SERVICES [facility] [address] [place] [phone] documented in this encounter Visit Diagnoses Not on filedocumented in this encounter
--- OUTSIDE RECORDS SUMMARY | 2022-05-16 13:52 | XMS_ITS | Encounter Summary ---
:1945 Author Organization [facility] Address [address] [place] [address] Care Team Providers Name Role Phone Jennifer Gomez HEEL SLICKER Primary Care Provider Encounter Details Date Type Department Care Team Description 12/22/2019 Lab Requisition [facility] Outr Resulting Lab, Pathology & Laboratory Provider [facility] [address] [place], [place] [id number] Social History Tobacco Use Types Packs/Day Years [...] Organization Address City/State/ZIP Code Phon e Number [facility] [address] [place] [address] SERVICES COVID-19 TESTING (12/22/2019 10:38 EDT) Analysis Performed At Patho logist Time Signature COVID-19 Negative Negative 12/23/2019 [facility] rt-PCR Result 19:43 EDT CENTER [facility] SERVICES Comment: Negative results do not preclude 2019-nC oV infection and should not be used as the sole basis for treatment or other patient management decisions. Negative results must be combined with clinical observa tions, patient history, and epidemiologi álvaro information. This test was developed and its performa nce characteristics determined by [facility]. It has not been cleared or approved [...] by the FDA Performed on the [employer] [address] Fast. Performing Lab AB [address] [facility] Lab 12/23/2019 19:43 EDT [facility] SERVICES Specimen Anatomical Collection Method Collection Time Receive d Time (Source) Location / / Volume Laterality Swab 12/22/2019 10:38 12/22/2019 EDT 16:05 EDT Provider Outr Resulting Lab MICROBIOLOGY - GENERAL ORD ERABLES Performing Organization Address City/State/ZIP Code Phon e Number [facility] [address] [place] [address] SERVICES documented in this encounter Visit Diagnoses Not on filedocumented in this encounter Care Teams Surgical Garment Assembler Relationship Specialty Start Date End Date Jennifer Gomez NP PCP - General 05/10/15 [facility] [address] [place], [place] [address] documented as of this encounter
--- OUTSIDE RECORDS SUMMARY | 2022-05-16 13:52 | XMS_ITS | Encounter Summary ---
:1945 Author Organization [facility] Address [address] [place] [address] Care Team Providers Name Role Phone Jennifer Gomez ADMINISTRATIVE SERVICES SPECIALIST Primary Care Provider Encounter Details Date Type Department Care Team Description 01/25/2022 Lab Requisition [facility] Center Outr Resulting Lab, Pathology & Laboratory Provider [facility] [address] [place], [place] [phone] Social History Tobacco Use Types Packs/Day Years [...] BACTERIAL PATHOGENS BY PCR (01/24/2022 14:50 EDT) [facility] Method Time Signature Salmonella PCR Negative Negative 01/25/2022 [facility] 22:03 EDT [facility] Shigella/Enteroin Negative Negative 01/25/2022 [facility] vasive E. coli 22:03 EDT CENTER LAB[facility]ATORY SERVICES HN LAB Negative Negative 01/25/2022 [facility] CAMPY[facility] PCR 22:03 EDT CENTER [facility] SERVICES Shiga Toxin PCR Negative Negative 01/25/2022 [facility] 22:03 EDT [facility] Specimen Anatomical Collection Method Collection Time Receive d Time (Source) Location / / Volume Laterality Feces SPECIMEN FROM 01/24/2022 14:50 01/25/2022 [facility] / Unknown EDT 17:30 EDT Provider Outr Resulting Lab MICROBIOLOGY - GENERAL ORD ERABLES Performing Organization Address City/State/[facility] Code Phon e Number [facility] [address] [place] [address] SERVICES documented in this encounter Visit Diagnoses Not on filedocumented in this encounter Care Teams Mirror Installer Relationship Specialty Start Date End Date Jennifer Gomez, NAMITA PCP - General 05/10/15 [facility] [address] [place] [address] documented as of this encounter
--- OUTSIDE RECORDS SUMMARY | 2022-05-16 13:52 | XMS_ITS | Encounter Summary ---
:1945 Author Organization [facility] Address [address] [place] [address] Care Team Providers Name Role Phone Jennifer Gomez BUS INSPECTOR Primary Care Provider Encounter Details Date Type Department Care Team Description 03/19/2019 Results Only [facility] Angel Luis Lott MD [phone] [address] [place], [place] [phone] (Wo rk) Social History Tobacco Use Types [...] encounter Results SURGICAL PATHOLOGY (03/19/2019 16:47 EDT) Component Value Ref Test Analysis Performed At [facility] Method Time Signature Pathology SURGICAL PATHOLOGY REPORT [facility] MEDICAL Report: Reports generated via electronic interface contain [facility] data; CENTER however they are lacking the format of the original report. LABORATORY Caution should be taken when reading/interpreting unformat pepper reports. SERVICES Name: ? ANGEL LUIS HI ? Accession #: ? [id number] ? : ? 1945 (Age: [age]) ??M ? Collect Date: ? 03/19/2019 ? Location: ? [facility] ? Receive Date: ? 03/20/2019 ? Provider: ANGEL LUIS LOTT MD Copy [...] features are not noted within the current material . There is no evidence of vasculitis. This [...] , predominantly perivascular, lymphomononuclear infiltrate. The lymphomononuclear cells ar e small with a spectrum of forms. There is erythrocyte extravasation. There is no evidence of vasculitis. PAS-D stain is negative for fungal organis ms. Deeper levels have been examined. (Dr. Connolly)/jds Document reviewed and electronically signed by: ROSA CONNOLLY MD Report ??Date: 03/24/2019 13:52 By the signature above, the attending physician certifies th at he/she has personally conducted a gross and/or microscopic examin ation of the described specimens and rendered or confirmed the above diagnosis. Specimen(s) Received: 5 mm punch of margin of lesion R thigh Clinical History: Annular rash on legs, recently started statin, no response t o anti fungal Gross Description: ? Received in formalin labelled with proper patient identification (initials M, J) and RT thigh is a ce ntrally crimped 0.5 cm marr circular skin excised to a depth of 0.5 cm. Bisected and entirely submitted in 1. ESTEFANY Brown ([facility]) 03/20/2019 5:33 PM End of Report Specimen Anatomical Collection Method Collection Time Receive d Time (Source) Location / / Volume Laterality 03/19/2019 16:47 03/20/2019 EDT 16:47 EDT Angel Luis Lott MD PATHOLOGY ORDERABLES Performing Organization Address City/State/ZIP Code Phon e Number [facility] [address] [place] [address] SERVICES documented in this encounter Visit Diagnoses Not on filedocumented in this encounter Care Teams Hydrogen Operator Relationship Specialty Start Date End Date Jennifer Gomez NP PCP - General 05/10/15 [facility] [address] [place] [address] documented as of this encounter
--- OUTSIDE RECORDS SUMMARY | 2022-05-16 13:52 | XMS_ITS | Encounter Summary ---
:1945 Author Organization [facility] [address] Care Team Providers Name Role Phone Jovany Lott MD Primary Care Provider Encounter Details Date Type Department Care Team Description 03/10/2022 Ancillary Procedure Radiology Library at Jovany Lott MD [facility] [address] [facility] [address] [place] [address] [phone] Social History Tobacco Use Types Packs/Day Years Used Date Smoking Tobacco: Former Cigarettes 0.5 Quit : 11/29/2019 Cigars Smokeless Tobacco: Former Sex Assigned at Date Recorded Not on file documented as of this encounter Plan of Treatment Upcoming Encounters Date Type Specialty Care Team Description 06/30/2022 Office Visit Endocrinology Alan Terrell MD [facility] ENDOCRINOLOGY [place], [place] [address] (Wo rk) documented as of [...] City/State/ZIP Code Phon e Number [facility] [place], [place] documented in this encounter Visit Diagnoses Not on filedocumented in this encounter Care Teams Manager Lpn Relationship Specialty Start Date End Date Jovany Lott MD PCP - General Family Medicine 02/05/20 [address] [place] [address] documented as of this encounter
--- OUTSIDE RECORDS SUMMARY | 2022-05-16 13:52 | XMS_ITS | Clinical Summary ---
:1945 Author Organization [place] [address] Care Team Providers Name Role Phone Jovany Lott MD Primary Care Provider Allergies Active Allergy Reactions Severity Noted Date Comments Penicillins 05/13/2013 Pt doesn't gely mber reaction Goccofb-Gey-Hgl Reductase 05/13/2013 St iff neck, upset stomach, [...] MD [facility] ENDOCRINOLOGY [place], [place] [address] (Wo rk) Health Maintenance Due [...] Time Received Time / Laterality Volume Narrative ALBA HANSEN - 03/11/2022 2:40 AM EDT This exam is auto-finalizing. It's purpo se is for storage only. Jovany Lott MD IMG FILM LIBRARY ORDERABLES Performing Organization Address City/State/ZIP Code Phon e Number [place], [place] from Last 3 Months Insurance Payer Benefit Plan / Subscriber ID Effective Dates Phone Addre ss Type Group MEDICARE MEDICARE PART [id number] 2019-Prese [phone] [facility] MD [place] [id number] [employer] [place] [id number] 2018-Presen [employer] [place] [id number] Advance Directives Latest Code Status on File Code Status Date Activated Date Inactivated Comments DNR 11/29/2019 5:16 PM 12/08/2019 6:16 PM Question Answer Comments Does patient have capacity to make Yes decision: Content of discussion: discussed code status with patient wh o was alert, oriented x3 and understood completely the benefits/risks. Code Status History Code Status Date Activated Date Inactivated Comments Full Code 11/29/2019 1:03 PM 11/29/2019 5:16 PM Question Answer Comments Does patient have capacity to make decision: Yes Full Code 11/29/2019 11:01 AM 11/29/2019 1:03 PM Question Answer Comments Does patient have capacity to make decision: Yes Care Teams Outside Residential Sales Professional Relationship Specialty Start Date End Date Jovany Lott MD PCP - General Family Medicine 02/05/20 [address] [place] [address]
--- OUTSIDE RECORDS SUMMARY | 2022-05-16 13:52 | XMS_ITS | Clinical Summary ---
:1945 Author Organization [facility] Address [address] [place] [address] Care Team Providers Name Role Phone Jennifer Gomez Bunny AITCHBONE BREAKER Primary Care Provider Encounters Date Type Specialty [...] Comments Hepatitis C Screen 1945 COVID-19 Vaccine (#1) 1945 Fall Risk Screening 2011 Procedures Procedure Name [...] of2 resultswithin the time period is included. P athologist Signature T3, Free 2.8 2.8 - 5.3 04/25/2022 [facility] pg/mL 21:09 EDT [facility]ENTER [facility] SERVICES Specimen Anatomical Collection Method Collection Time Receive d Time (Source) Location / / Volume Laterality Blood VENOUS BLOOD / 04/24/2022 11:50 Unknown EDT 20:27 EDT Provider Outr Resulting Lab CHEMISTRY & BLOOD GAS CHLOE IBARRA Performing Organization Address City/State/ZIP Code Phon e Number [facility] [address] [place] [address] SERVICES from Last 3 Months Insurance Payer Benefit Plan Subscriber ID Effective Phone Address Typ e / Group Dates [employer] OF [employer] OF [id number] 2018-Prese [id number] [place] [address] MEDICARE MEDICARE A/B [id number] 2011-Pres [address] Medicare GL ent [id number] [place] [address] (Work) Jovany Hi Personal/Family Self [address] (Home) [place] [address] (Work) Jovany Hi Personal/Family Self [address] (Home) [place] [address] (Work) Care Teams Assembler Dc Field Yoke Relationship Specialty Start Date End Date Jennifer Gomez, AITCHBONE BREAKER PCP - General 05/10/15 [facility] [address] [place], [place] [phone]
--- OUTSIDE RECORDS SUMMARY | 2022-05-16 13:52 | XMS_ITS | Encounter Summary ---
:1945 Author Organization [facility] Address [address] [place] [address] Care Team Providers Name Role Phone Jennifer Gomez STAVE PLANER TENDER Primary Care Provider Encounter Details Date Type Department Care Team Description 02/07/2020 Lab Requisition [facility] Outr Resulting Lab, Pathology & Laboratory Provider [facility] [address] [place] [address] Social History Tobacco Use Types [...] TEST (02/07/2020 7:59 EDT) Analysis Performed At [facility] Time Signature COVID-19 NEGATIVE Negative 02/08/2020 BROAD [...] Organization Address City/State/ZIP Code Phon e Number [facility] [place], [place] COVID-19 TESTING (02/07/2020 7:59 EDT) Analysis Performed At [facility] Time Signature COVID-19 NEGATIVE Negative 02/08/2020 BROAD [...] Administration's Emergency Use Authorization. Performing Lab [facility] 02/08/2020 17:4 7 EDT [facility] SERVICES Specimen Anatomical Collection Method Collection Time Receive d Time (Source) Location / / Volume Laterality Swab 02/07/2020 7:59 02/07/2020 EDT 23:07 EDT Provider Outr Resulting Lab MICROBIOLOGY - GENERAL ORD ERABLES Performing Organization Address City/State/ZIP Code Phon e Number [facility] [address] [place] [address] SERVICES [facility] [place], [place] documented in this encounter Visit Diagnoses Not on filedocumented in this encounter Care Teams Car Restorer Relationship Specialty Start Date End Date Jennifer Gomez NP PCP - General 05/10/15 [facility] [address] [place], [place] [phone] documented as of this encounter
--- OUTSIDE RECORDS SUMMARY | 2022-05-16 13:52 | XMS_ITS | Encounter Summary ---
:1945 Author Organization [facility] [place] [address] Care Team Providers Name Role Phone France Lam MD Primary Care Provider Encounter Details Date Type Department Care Team Description 01/09/2020 TH Visit Neurology at [facility] Efrain Nicole, Intracranial hemorrhage; (TeleHealth) [facility] ESTEFANY Tobacco abuse; [facility] Cerebrovascular accident (CV A) due to embolism of right posterior cerebral artery [facility] [id number] NEUROLOGY [phone] [place] [address] Social History Tobacco Use Types Packs/Day Years Used Date Smoking Tobacco: Every Day Cigarettes 0.5 Cigars Sex Assigned at Date Recorded Not on file documented as of this encounter Progress Notes Efrain Nicole PA - 01/09/2020 9:00 AM EDT Cerebrovascular Disease and Stroke Program Department [place] [address] t: [phone] / f: [phone] TELEPHONE ENCOUNTER Date of Appointment: 01/09/2020 I [...] cardiology - had f/u head CT at [facility] which was stable with resolving known hemorrhage - has not resumed smoking -has been in touch with Dr. Sanchez for Watchman, deferred for duration of anticoagulation for PE Modified [place] Scale (MRS) 0: No symptoms at all [...] -advised vision/eye exam with his local provider ([facility]); consider referral to neuro-ophthalmology here in [...] Visit Endocrinology Alan Terrell MD [facility] ER ENDOCRINOLOGY [place], [place] [address] (Wo rk) documented as of this encounter Visit Diagnoses Diagnosis Intracranial hemorrhage Unspecified intracranial hemorrhage Tobacco abuse Tobacco use disorder Cerebrovascular accident (CVA) due to em bolism of right posterior cerebral artery documented in this encounter Care Teams Neuroscience Director Na Relationship Specialty Start Date End Date France Lam MD PCP - General 05/02/13 02/04/20 [address] [place] [address] documented as of this encounter
--- OUTSIDE RECORDS SUMMARY | 2022-05-16 13:52 | XMS_ITS | Encounter Summary ---
:1945 Author Organization [facility] [place] [address] Care Team Providers Name Role Phone France Lam MD Primary Care Provider Encounter Details Date Type Department Care Team Description 12/24/2019 Telephone Neurosurgery at [facility] Cathy Jay [facility] [place] [address] Social History Tobacco Use Types Packs/Day Years Used Date Smoking Tobacco: Every Day Cigarettes 0.5 Cigars Sex Assigned at Date Recorded Not on file documented as of this encounter Miscellaneous Notes Telephone Encounter - Elza Bradshaw - 01/08/2020 4:53 PM EDT Spoke with Naa in the film library, CT available, uploading not. Scheduled patient for TOV with B. Telephone Encounter - Elza Bradshaw - 01/01/2020 5:28 PM EDT Patient completed CT on 12/28. Faxed push request to [facility] Telephone Encounter - Elza Bradshaw - 12/25/2019 11:50 AM EDT Called [place] [employer] safety representative I spoke with patient has plan N and does not require authorization. Order faxed with demos to [facility]. Postponing to allow time for scheduling. Telephone Encounter - Cathy Jay - 12/24/2019 11:42 AM EDT Patient needs f/u appointment(s): With [facility] on/around 01/13 3 weeks TOV, s/p Intracranial hemorrhage, [facility] prior 1. [place] [employer] ALLISON? ~~~~~~~~~~~~~~~~~~~~~~~~~~~~~~~~~~~~~~~~~~~~~~~~~~~~~~ Alfreda Salas APRN Sent: e December 23, 2019 ??7:39 PM To: P [facility] Neurosurgery Nuisance Wildlife Trapper Jovany Hi ( ) : 1945> ?? Follow-up and Dispositions Check-out Note: Follow up head CT and TOV in 3 weeks unless vision worsens or he develops new symptoms in meantime ([facility] for CT) documented in this encounter Plan of Treatment Upcoming Encounters Date Type Specialty Care Team Description 06/30/2022 Office Visit Endocrinology Alan Terrell MD [facility] ER DR ENDOCRINOLOGY [place], [place] [address] (Wo rk) documented as of this encounter Visit Diagnoses Not on filedocumented in this encounter Care Teams Optical Sales Associate Relationship Specialty Start Date End Date France Lam MD PCP - General 05/02/13 02/04/20 [address] [place] [address] documented as of this encounter
--- OUTSIDE RECORDS SUMMARY | 2022-05-16 13:52 | XMS_ITS | Encounter Summary ---
:1945 Author Organization [facility] [place] [address] Care Team Providers Name Role Phone France Lam MD Primary Care Provider Reason for Visit Reason Onset Date Comments TeleHealth 01/12/2020 Encounter Details Date Type Department Care Team Description 01/12/2020 Telephone Neurosurgery at [facility] Alfreda Salas, TeleHealth [facility] [place] [address] [facility] [phone] [place], [place] [address] (Wo rk) Social History Tobacco [...] Care Team Description 06/30/2022 Office Visit Endocrinology GenietAlan MD [facility] ER ENDOCRINOLOGY [place], [place] [address] (Wo rk) documented as of this encounter Visit Diagnoses Not on filedocumented in this encounter Care Teams Rocket Propellant Plant Supervisor Relationship Specialty Start Date End Date France Lam MD PCP - General 05/02/13 02/04/20 [address] [place] [address] documented as of this encounter
--- OUTSIDE RECORDS SUMMARY | 2022-05-16 13:53 | XMS_ITS | Encounter Summary ---
:1945 Author Organization [facility] [place] [address] Care Team Providers Name Role Phone France Lam MD Primary Care Provider Encounter Details Date Type Department Care Team Description 12/08/2019 Telephone Neurosurgery at [facility] [place] [address] Social History Tobacco Use Types Packs/Day Years Used Date Smoking Tobacco: Every Day Cigarettes 0.5 Cigars Sex Assigned at Date Recorded Not on file documented as of this encounter Miscellaneous Notes Telephone Encounter - Elza Bradshaw - 12/22/2019 6:[address] in [facility] Telephone Encounter - Elza Bradshaw - 12/18/2019 3:43 PM EDT Left message at [facility] requesting they call back to advise if patient has been scheduled for CT. Telephone Encounter - Sarah Boucher - 12/08/2019 3:[address] order to [facility] to schedule, 12/16-12/18 for 12/22 TOV scheduled w/[facility] Telephone Encounter - Sarah Boucher - 12/08/2019 9:50 AM EDT RN, please put in CT order external=Josue Pt's called not able to come to [facility] on 12/[address] requested to have CT locally at [facility] call w/results. documented in this encounter Plan of Treatment Upcoming Encounters Date Type Specialty Care Team Description 06/30/2022 Office Visit Endocrinology Alan Terrell MD [facility] ER ENDOCRINOLOGY [place], [place] [address] (Wo rk) documented as of this encounter Visit Diagnoses Not on filedocumented in this encounter Care Teams Retail Route Supervisor Relationship Specialty Start Date End Date France Lam MD PCP - General 05/02/13 02/04/20 [address] [place] [address] documented as of this encounter
--- OUTSIDE RECORDS SUMMARY | 2022-05-16 13:53 | XMS_ITS | Encounter Summary ---
:1945 Author Organization [facility] [place] [address] Care Team Providers Name Role Phone France Lam MD Primary Care Provider Reason for Visit Reason Onset Date Comments TeleHealth 12/22/2019 Appt 12/23/19 Encounter Details Date Type Department Care Team Description 12/22/2019 Telephone Neurosurgery at [facility] Alfreda Salas TeleHealth (Appt [facility] Devin Sebastian, EMPLOYEE PLACEMENT SPECIALIST 12/23/19) [place] [address] [place] [address] [place] [address] Social History Tobacco Use Types Packs/Day [...] Description 06/30/2022 Office Visit Endocrinology GenietAlan MD [facility] ER [address] [place] [address] (Wo rk) documented as of this encounter Visit Diagnoses Not on filedocumented in this encounter Care Teams Development Manager Relationship Specialty Start Date End Date France Lam MD PCP - General 05/02/13 02/04/20 [address] [place] [address] documented as of this encounter
--- OUTSIDE RECORDS SUMMARY | 2022-05-16 13:53 | XMS_ITS | Encounter Summary ---
:1945 [place] [address] Care Team Providers Name Role Phone France Lam MD Primary Care Provider Encounter Details Date Type Department Care Team Description 12/08/2019 Orders Only Neurosurgery at [facility] Natalia Delong, Madhavi [facility] [place] [address] Social History Tobacco Use Types Packs/Day Years Used Date Smoking Tobacco: Every Day Cigarettes 0.5 Cigars Sex Assigned at Date Recorded Not on file documented as of this encounter Plan of Treatment Upcoming Encounters Date Type Specialty Care Team Description 06/30/2022 Office Visit Endocrinology Alan Terrell MD [facility] ER ENDOCRINOLOGY [place], [place] [address] (Wo rk) documented as of this encounter Visit Diagnoses Diagnosis Intracranial hemorrhage Unspecified intracranial hemorrhage documented in this encounter Care Teams Pediatric Oncologist Relationship Specialty Start Date End Date France Lam MD PCP - General 05/02/13 02/04/20 [address] [place] [address] documented as of this encounter
--- OUTSIDE RECORDS SUMMARY | 2022-05-16 13:53 | XMS_ITS | Encounter Summary ---
:1945 Author Organization [facility] [place] [address] Care Team Providers Name Role Phone France Lam MD Primary Care Provider Encounter Details Date Type Department Care Team Description 12/18/2019 Ancillary Procedure Radiology Library at Debi Lam [facility] [address] [address] [place] [address] [phone] Social History Tobacco Use Types Packs/Day Years Used Date Smoking Tobacco: Every Day Cigarettes 0.5 Cigars Sex Assigned at Date Recorded Not on file documented as of this encounter Plan of Treatment Upcoming Encounters Date Type Specialty Care Team Description 06/30/2022 Office Visit Endocrinology Alan Terrell MD [facility] [address] [place], [place] [address] (Wo rk) documented as of [...] Time / Laterality Volume Narrative RAD - 12/18/2019 5:04 PM EDT This exam is auto-finalizing. It's purpo se is for storage only. France Lam MD G FILM LIBRARY ORDERABLES Performing Organization Address City/State/ZIP Code Phon e Number DH RAD [place], [place] documented in this encounter Visit Diagnoses Not on filedocumented in this encounter Care Teams Senior Media Planner Relationship Specialty Start Date End Date France Lam MD PCP - General 05/02/13 02/04/20 [address] [place] [address] documented as of this encounter
--- OUTSIDE RECORDS SUMMARY | 2022-05-16 13:54 | XMS_ITS | Encounter Summary ---
:1945 Author Organization [facility] [place] [address] Care Team Providers Name Role Phone France Lam MD Primary Care Provider Encounter Details Date Type Department Care Team Description 11/30/2019 Orders Only Cardiology [facility] [place] [address] Social History Tobacco Use Types Packs/Day Years Used Date Smoking Tobacco: Every Day Cigarettes 0.5 Cigars Sex Assigned at Date Recorded Not on file documented as of this encounter Plan of Treatment Upcoming Encounters Date Type Specialty Care Team Description 06/30/2022 Office Visit Endocrinology Alan Terrell MD [facility] ER ENDOCRINOLOGY [place], [place] [address] (Wo rk) documented as of [...] fajardo ? (Age): 1945(74y) Med Rec#: ? [id number] ?Sex: ?M ? Site Loc: ? Ht / Wt: ??(cm)/ (kg) ? Pt. Loc: ? Study Date: ?? 11/29/2019 ?Pt. Type: Tape: ? Referring: Faustino Garduno Reading: Dawit Mejia ([id number]) Air Conditioner Installer Helper: [employer] Hr Analyst: Cedric Eric ([id number]) Interpreting Fellow: Cedric Eric ([phone]) Diagnosis: SUMMARY: 1. Limited bedside echocardiogram perfor med by low emission automobile designer accounting clerks supervisor for hypotension following inferior STEMI . [...] ? Mid-Inferior ?Akinetic ? Mid-Inferoseptal ?Hypokinetic ? [place]-Septal ? Normal ? [place]-Anterior ? Normal ? [place]-Lateral ?Normal ? [place]-Inferior ? Hypokinetic ? [place]-Tip ?Normal ? This report has been electronically sign ed by: _ Dawit Mejia MD ? 11/30/2019 12: 53:59 Images reviewed and interpretation verif ied [facility] Cardiac Ultrasound Laboratory Procedure Note Dawit Mejia MD - 11/30/2019Formatti ng of this note might be different from the original. Procedure: Transthoracic Echocardiogram Patient: domenica ACOSTA(Age): [age]y) Med Rec#: [id number] Sex: M Site Loc: Ht / Wt: (cm)/ (kg) Pt. Loc: Study Date: 11/29/2019 Pt. Type: Tape: Referring: Faustino Garduno Reading: Dawit Mejia ([id number]) Air Conditioner Installer Helper: [employer] Hr Analyst: Cedric Eric ([id number]) Interpreting Fellow: Cedric Eric ([phone]) Diagnosis: SUMMARY: 1. Limited bedside echocardiogram perfor med by low emission automobile designer accounting clerks supervisor for hypotension following inferior STEMI . [...] Normal Mid-Posterolateral Akinetic Mid-Inferior Akinetic Mid-Inferoseptal Hypokinetic [place]-Septal Normal [place]-Anterior Normal [place]-Lateral Normal [place]-Inferior Hypokinetic [place]-Tip Normal This report has been electronically sign ed by: _ Dawit Mejia MD 11/30/2019 12:53:59 Images reviewed and interpretation [facility] Cardiac Ultrasound Laboratory Unknown ECHO ORDERABLES documented in this encounter Visit Diagnoses Not on filedocumented in this encounter Care Teams Pharmacy Customer Care Specialist Relationship Specialty Start Date End Date France Lam MD PCP - General 05/02/13 02/04/20 [address] [place] [address] documented as of this encounter
--- OUTSIDE RECORDS SUMMARY | 2022-05-16 13:54 | XMS_ITS | Encounter Summary ---
:1945 Author Organization [facility] [place] [address] Care Team Providers Name Role Phone France Lam MD Primary Care Provider Reason for Referral Consultation (Routine) - Specialty Diagnoses / Procedures Referred By Contact Refer red To Contact Cardiology Diagnoses Acute ST elevation myocardial infarction (STEMI) of inferior wall Darrell Glasgow MD [facility] [place] [address] Referral ID Status Reason Start Date Expiration Date Visits V isits Requested Authorized [id number] Consult, 12/08/2019 06/05/2020 1 1 Test & Treat Consultation (Routine) - Closed Specialty Diagnoses / Referred By Contact Referred To Contact Procedures Cardiac Rehabilitation Diagnoses ST elevation myocardial infarction involving right coronary artery Gretchen Yoon, Cardiac Rehab, [address] [place] [address] Fax: Referral ID Status Reason Start Date Expiration Date Visits V isits Requested Authorized [id number] Closed Consult, 12/08/2019 06/05/2020 36 36 Test & Treat Reason for Visit Auth/Cert Specialty Diagnoses / Procedures Referred By Contact Refer red To Contact Diagnoses STEMI (ST elevation myocardial infarction) STEMI Procedures CARDIAC CATHETERIZATION Referral ID Status Reason Start Date Expiration Date Visits Requ ested Visits Authorized [id number] 1 1 Encounter Details Date Type Department Care Team Description 11/29/2019 - Hospital Encounter Cardiac Special YoungBarbra MD [facility] [place] [address] ST elevation myocardial infarction invol ving left main coronary artery; 12/08/2019 Care Unit Paris Lozano MD [facility] [place] [address] ST elevation myocardial infarction invol ving right coronary artery; [facility] Edema of upper extremity; Hospital Intracranial hemorrhage; [facility] Paroxysma l atrial fibrillation; Drive Acute pulmonary embolism, un specified pulmonary embolism type, unspecified whether acute cor pulmonale present; [place], [place] Acute ST elevat ion myocardial infarction (STEMI) of inferior wall [id number] Social History Tobacco Use Types Packs/Day Years [...] months on: antiplatelet therapy at discretion of water quality assistant - Repeat TTE in 3 months to reassess LV function - Repeat BMP in 1-2 weeks given recent start lisinopril - Referred to lipid clinic for consideration of PCSK-9 inhibitor given STEMI with intolerance of statins - Started on amiodarone this admission for recurrent rapid atrial flutter with rates ~170, recommendcontinued assessment of necessity of rhythm control strategy with water quality assistant - Amiodarone monitoring recommendations as below - [...] contact your inpatient physician through the [facility] Housekeeper Caregiver . Issues after hours and on weekends [...] took two full strength aspirinand came to [facility] ED. At there was found to have ST elevation in inferior leads, slightly elevated troponin of 0.08. A STEMI code was called. He received Heparin bolus and gtt, loading of aspirin, plavix, TNK and sublingual nitrates. He's still having significant pain 10 after these interventions, with no significant ST changes to interval EKG. He then had some nausea and vomiting and was treated with 1 time of Zofran and Compazine. He was transferred directly to [facility] via [facility] for further management. Patient had an emergent PCI with 3 MACARIO stents placed to his RCA, with mild disease of LCX (report pending) at [facility]. He was found to be persistently hypotensive requiring Levo up to 10mcg/min. He was transferred to [facility] after the cath procedure. Bedside RHC [...] as described above. On arrival at [facility] he was taken for cardiac cath where [...] 168 hours. Last 3 TFT Recent Labs 12/08/19 0628 TSH 5.27* Studies: Cardiac catheterization 11/28: Hemodynamics: [...] number below. Electronically signed by: Estefani Harris [facility] ([phone]), at 11/29/2019 4:[address] Head wo [...] report, please contact the number below. Angiogram [facility] [place] (Exam End: 11/30/2019 4:36 PM) [...] Electronically signed by: Angel Luis Barboza MD, [facility] ([phone]), at 12/01/2019 8:02 PM XR Chest One [...] number below. Electronically signed by: Latoya Ivey [facility] ([phone]), at 11/30/2019 8:[address] Head wo [...] number below. Electronically signed by: Merari Collins [facility] ([phone]), at 12/01/2019 3:53 PM XR Chest One View (Exam End: 12/02/2019 1:00 PM) Impression Slightly increased small bibasilar pleural effusions and atelectasis. Thank you for letting us participate in the care of this patient. For questions regarding this report, please contact the number below. Electronically signed by: Ashly Marley [facility] ([phone]), at 12/02/2019 1:[address] Cardiac for [...] number below. Electronically signed by: Roselyn Luciano [facility] ([phone]), at 12/04/2019 6:16 PM MRI Brain wwo Contrast (Generic) (Exam End: 12/05/2019 7:59 PM) Impression No significant interval change. Thank you for letting us participate in the care of this patient. For questions regarding this report, please contact the number below. Electronically signed by: Merari Collins [facility] ([phone]), at 12/05/2019 10:[address] Head wo [...] number below. Electronically signed by: Merari Collins [facility] ([phone]), at 12/06/2019 10:06 PM Pending Studies and Lab Data: N/A Discharge Conditions/Prognosis: stable Discharge to: home Updated Allergies/ADRs: Allergies Allergen Reactions ??? Penicillins Pt doesn't remember reaction ??? Bvjwfre-Fnh-Qfg Reductase Inhibitors Stiff neck, upset stomach, back [...] at another hospital and then at [facility] you had a stent placed in a [...] FOR ONE MONTH AND THEN STOP. Your water quality assistant may tell you to start this medication again after one year. Clopidogrel (Plavix) 75 mg daily - This medication will help prevent clots from forming in your blood, which will help protect the stent that was placed in your heart vessel. TAKE THIS FOR ONE YEAR ANDTHEN DISCUSS WITH YOUR INFORMATION SECURITY CONSULTANT WHETHER TO STOP. Amiodarone 400mg twice daily [...] follow up: Your primary care provider and water quality assistant will manage your blood thinner (apixaban). You do not need lab monitoring of this medication. Diet: Please consume a healthy diet low in cholesterol Follow up Appointments: 12/10/2019 at 3:10PM with PCP Angel Luis Lott Future Appointments Date Time Provider Department Center 12/23/2019 1:30 PM Alrfeda Salas APRN [address] 12/26/2019 9:40 AM Merlin Sanchez MD [facility] CARD 4A [facility] 12/30/2019 3:40 PM Gretchen Yoon MD [facility] 4A [facility] Future Appointments and Orders Future Appointments and Orders Future Appointments Provider Department Dept Phone 12/23/2019 1:30 PM Alfreda Salas APRN Neurosurgery at [facility] Arrive at: Home [phone] Please do not come in for this visit. Your provider will call you at the number you provided. 12/26/2019 9:40 AM Merlin Sanchez MD Cardiology at [facility] Arrive at: Home [phone] Please do not come in for this visit. Your provider will call you at the number you provided. 12/30/2019 3:40 PM Gretchen Yoon MD Cardiology at [facility] Arrive at: Home [phone] Please do not come in for this visit. Your provider will call you at the number you provided. Future Orders Complete By Expires Referral to Cardiac Rehab [REH100 Custom] As directed Process Instructions: If no progress note charted, please enter Clinical details in comments. Scheduling Instructions: Questions: My question or request is: STEMI. Cardiac rehab at [facility] Referral to [facility] [REF43 Custom] As directed Process Instructions: If no progress note charted, please enter Clinical details in comments. Scheduling Instructions: Questions: My question or request is: patient with inferior stemi with history of statin allergy (rash) - please evaluate for psck9 inhibitor. Referral to Home Health - at DISCHARGE [GKQ6864 CPT(R)] As directed Process Instructions: Scheduling Instructions: Comments: DOCUMENTATION FOR [facility] SERVICES PATIENT'S LOCATION: Angel Luis Corcoran [address] [phone] (home) Typo Machine Operator's Name: Self In discussion with the attending physician, it is certified that this patient is under his/her care and that MD, or an SOCIAL MEDIA EDITOR, MANAGER ADULT, or PA who is working directly with him/her, had a ofkv-pn-ckrj encounter that meets the physician tzqf-ef-goxi encounter requirements with this patient on 12/07/2019. [...] HEALTH CARE AGENCY: [facility], PHONE: [phone] FAX: [phone] Start of care: 24-48 hours after hospital [...] MD [address] / [place] [address] All A agencies which cover the area [...] info: PCP Your PCP: France Lam MD [phone] For questions regarding this document or issues relating to this hospitalization on the Cardiology Service, please contact your inpatient physician through the [facility] Housekeeper Caregiver . Issues after hours and on weekends will be handled by the Rn Hyperbaric on-call. Patient Instructions: Neurology Your Diagnosis: Left [...] follow-up appointment in the neurology clinic at [facility]. See below for the appointment time. If [...] PM Alfreda Salas APRN Neurosurgery at [facility] Arrive at: Home [phone] Please do not come in for this visit. Your provider will call you at the number you provided. 12/26/2019 9:40 AM Merlin Sanchez MD Cardiology at [facility] Arrive at: Home [phone] Please do not come in for this visit. Your provider will call you at the number you provided. 12/30/2019 3:40 PM Gretchen Yoon MD Cardiology at [facility] Arrive at: Home [phone] Please do not come in for this visit. Your provider will call you at the number you provided. Future Orders Complete By Expires Referral to Cardiac Rehab [[id number] Custom] As directed Process Instructions: If no progress note charted, please enter Clinical details in comments. Scheduling Instructions: Questions: My question or request is: STEMI. Cardiac rehab at [facility] Referral to [facility] [REF43 Custom] As directed Process Instructions: If no progress note charted, please enter Clinical details in comments. Scheduling Instructions: Questions: My question or request is: patient with inferior stemi with history of statin allergy (rash) - please evaluate for psck9 inhibitor. Referral to Home Health - at DISCHARGE [[id number] CPT(R)] As directed Process Instructions: Scheduling Instructions: Comments: DOCUMENTATION FOR [facility] SERVICES PATIENT'S LOCATION: [address] [phone] (home) Typo Machine Operator's Name: Self In discussion with the attending physician, it is certified that this patient is under his/her care and that MD, or an SOCIAL MEDIA EDITOR, MANAGER ADULT, or PA who is working directly with him/her, had a jdld-fc-diqm encounter that meets the physician awco-cp-qtey encounter requirements with this patient on 12/07/2019. [...] HEALTH CARE AGENCY: [facility], PHONE: [phone] FAX: [phone] Start of care: 24-48 hours after hospital [...] France Lam MD [address] / [place] [address] All A agencies which cover the area [...] Stevens MD PGY-3, Internal Medicine Cardiology S2, #8394 Associated attestation - Shaka Lagos, Paris Lockett MD - 12/09/2019 4:44 PM EDT Cardiology Attending Discharge Addendum I was the assigned attending water quality assistant for this clinical encounter. For the purposes [...] complications include novel onset, paroxysmal atrial fibrillation [[id number]: 5] & L-sided diplopia with potential hemineglect [...] contact information: Paris Matt MD MPH [address], [place] [phone] (office); Pager #[phone] Email: [email or web address] documented in this encounter Discharge Instructions Patient InstructionsFiRiki de jesus MD - 12/02/2019 9:56 AM EDT Images from the original note were not included. Why you were hospitalized: You had a heart attack. You received clot-busting medications at another hospital and then at [facility] you had a stent placed in a [...] FOR ONE MONTH AND THEN STOP. Your water quality assistant may tell you to start this medication again after one year. Clopidogrel (Plavix) 75 mg daily - This medication will help prevent clots from forming in your blood, which will help protect the stent that was placed in your heart vessel. TAKE THIS FOR ONE YEAR ANDTHEN DISCUSS WITH YOUR INFORMATION SECURITY CONSULTANT WHETHER TO STOP. Amiodarone 400mg twice daily [...] follow up: Your primary care provider and water quality assistant will manage your blood thinner (apixaban). You do not need lab monitoring of this medication. Diet: Please consume a healthy diet low in cholesterol Follow up Appointments: 12/10/2019 at 3:10PM with PCP Angel Luis Lott Future Appointments Date Time Provider Department Center 12/23/2019 1:30 PM Alfreda Salas APRN [facility] [id number] [facility] 12/26/2019 9:40 AM Merlin Sanchez MD [facility] CARD 4A [facility] 12/30/2019 3:40 PM Gretchen Yoon MD [facility] CARD 4A [facility] Future Appointments and Orders Future Appointments and Orders Future Appointments Provider Department Dept Phone 12/23/2019 1:30 PM Alfreda Salas APRN Neurosurgery at [facility] Arrive at: Home [phone] Please do not come in for this visit. Your provider will call you at the number you provided. 12/26/2019 9:40 AM Merlin Sanchez MD Cardiology at [facility] Arrive at: Home [phone] Please do not come in for this visit. Your provider will call you at the number you provided. 12/30/2019 3:40 PM Gretchen Yoon MD Cardiology at [facility] Arrive at: Home [phone] Please do not come in for this visit. Your provider will call you at the number you provided. Future Orders Complete By Expires Referral to Cardiac Rehab [[id number] Custom] As directed Process Instructions: If no progress note charted, please enter Clinical details in comments. Scheduling Instructions: Questions: My question or request is: STEMI. Cardiac rehab at [facility] Referral to [facility] Treatment [facility] [REF43 Custom] As directed Process Instructions: If no progress note charted, please enter Clinical details in comments. Scheduling Instructions: Questions: My question or request is: patient with inferior stemi with history of statin allergy (rash) - please evaluate for psck9 inhibitor. Referral to Home Health - at DISCHARGE [SZC2071 CPT(R)] As directed Process Instructions: Scheduling Instructions: Comments: DOCUMENTATION FOR VNA SERVICES PATIENT'S LOCATION: [address] [phone] (home) Typo Machine Operator's Name: Self In discussion with the attending physician, it is certified that this patient is under his/her care and that MD, or an SOCIAL MEDIA EDITOR, MANAGER ADULT, or PA who is working directly with him/her, had a ivdn-ir-xmdt encounter that meets the physician vzkr-bs-spis encounter requirements with this patient on 12/07/2019. [...] HEALTH CARE AGENCY: [facility], PHONE: [phone] FAX: [phone] Start of care: 24-48 hours after hospital [...] MD [address] / [place] [address] All A agencies which cover the area [...] info: PCP Your PCP: France Lam MD [phone] For questions regarding this document or issues relating to this hospitalization on the Cardiology Service, please contact your inpatient physician through the [facility] Housekeeper Caregiver . Issues after hours and on weekends will be handled by the Rn Hyperbaric on-call. Patient Instructions: Neurology Your Diagnosis: Left [...] follow-up appointment in the neurology clinic at [facility]. See below for the appointment time. If [...] to personal vehicle. Discharge summary faxed to [facility]. Vikash Rodriguez - 12/08/2019 10:59 AM EDT [...] consulted in the interim. Vikash Rodriguez Pager: [phone] Paris Dodd MD - 12/08/2019 8:57 AM [...] complications include novel onset, paroxysmal atrial fibrillation [[id number]: 5] & L-sided diplopia with potential hemineglect [...] consulted in the interim. Vikash Rodriguez Pager: [phone] Paris Dodd MD - 12/07/2019 9:55 AM [...] complications include novel onset, paroxysmal atrial fibrillation [JJH5GU5IJLU: 5] & L-sided diplopia with potential hemineglect [...] complications include novel onset, paroxysmal atrial fibrillation [ZTD9NT5ZOXR: 5] & L-sided diplopia with potential hemineglect [...] complications include novel onset, paroxysmal atrial fibrillation [QHQ4EX6CHYM: 5] & L-sided diplopia with potential hemineglect [...] today; additional complications include paroxysmal atrial fibrillation [PXG5VC2BGGT: 4] c/b possible cardioembolic stroke, ICH from [...] length from neck/greatest diameter to back wall: FRENCH 91, CAU 13: 19 mm CORTES 1, [...] a non-culprit artery. S/P DESx3 in the rygwzjdc-uf-mfkqtx RCA. Aspiration thrombectomy performed, and integrellin bolus [...] complications include novel onset, paroxysmal atrial fibrillation [XJA2PY4HLAC: 5] & L-sided diplopia with potential hemineglect [...] R occipital cardioembolic stroke #Paroxysmal Afib with FR8IRVOK2I score of 5 #New segmental bilateral PEs [...] Glasgow MD PGY1, Internal Medicine Cardiology S2, #6569 Associated attestation - Paris Dodd MD - 12/05/2019 2:59 PM EDT I was the assigned attending water quality assistant for this clinical encounter. For the purposes [...] 12/04/2019 10:36 AM EDT Office of Care Management(OCM)/Barrel Rifler Operator(CM)/Discharge Planning Service: Cardiology S2 team CM Bernie Alexander,RN,BSN,MA,ACM pgr [phone] Reviewed record and in Cardiology Rounds with MD team,CMs, construction field engineer, CUSTODIAL SUPERVISOR. Pt is anticipated ready for d/c [...] to his PCP and to any [facility] appt for each to have on file. [...] complications include novel onset, paroxysmal atrial fibrillation [QYN7PN0ZIIR: 4] & L-sided diplopia with potential hemineglect [...] a non-culprit artery. S/P DESx3 in the zhrkwiml-lo-cxmywu RCA. Aspiration thrombectomy performed, and integrellin bolus [...] complications include novel onset, paroxysmal atrial fibrillation [TSO6CN5LNOQ: 5] & L-sided diplopia with potential hemineglect [...] R occipital cardioembolic stroke #Paroxysmal Afib with WV0GZFPV7G score of 5 - No anticoagulation for [...] Glasgow MD PGY1, Internal Medicine Cardiology S2, #0851 I have seen the patient and reviewed [...] in my clinic. Gretchen Yoon MD Pager [phone] Derian Pascual RN - 12/03/2019 9:29 AM [...] Discharge: None Electronically signed: Derian Pascual RN, Barrel Rifler Operator Pgr: [phone] 12/03/2019 9:29 AM Gretchen [...] complications include novel onset, paroxysmal atrial fibrillation [IYW6IR8DVWX: 4] & L-sided diplopia with potential hemineglect [...] a non-culprit artery. S/P DESx3 in the ybqzjlwd-al-kjuxhe RCA. Aspiration thrombectomy performed, and integrellin bolus [...] complications include novel onset, paroxysmal atrial fibrillation [FCH8TT1BBJP: 5] & L-sided diplopia with potential hemineglect [...] [facility] and follow up with his [facility]CP. Patient voiced strong will to quit smoking now, understood that we have resources available for help. Plan [P]: --Neurologic-- # Concern for Left-Sided Diplopia, r/o Hemineglect # Concern for CVA, last-known well 11/29/19 - MRI showed possible cardioembolic stroke #Afib with VC5HWCBD9P score of 5 - Stroke Team Consulted; [...] Anticoagulation/Arrhythmia # Novel Onset, Paroxsymal Atrial Fibrillation [RBV1SR5PLNW: 5] - Hold off anticoagulation for at [...] straight cath prn # Nutrition - [facility] Diet, 2g Na. -- Hematology/Oncology-- # Mild [...] Glasgow MD PGY1, Internal Medicine Cardiology S2, #6178 I have seen the patient and reviewed the resident's above history and I agree with the details as written. The assessment and plan were formulated in discussion with me and I agree with them as documented. Gretchen Yoon MD Pager [phone] Raul Hein RN - 12/03/2019 5:55 AM [...] Negative mcL Appearance UA Clear Clear Spec Crum Lynne UA 1.026 1.006 - 1.030 Color UA [...] PGY3 Neurology Resident 12/01/2019 Vascular Neurology Pager [phone] Neurology Attending Attestation I evaluated the patient [...] Deepthi Roman MD Vascular Neurology Standard [facility] Swallow Screen: This screen is to be [...] diet as medical provider deems appropriate. Consider SENIOR RESIDENT CARE DIRECTOR consult for full evaluation and diet recommendations. [...] complications include novel onset, paroxysmal atrial fibrillation [OKY4YY5XNBS: 4] & L-sided diplopia with potential hemineglect [...] a non-culprit artery. S/P DESx3 in the kmkhsaff-fo-jtoyvs RCA. Aspiration thrombectomy performed, and integrellin bolus [...] complications include novel onset, paroxysmal atrial fibrillation [MUK7NF3WVBW: 5] & L-sided diplopia with potential hemineglect [...] Anticoagulation/Arrhythmia # Novel Onset, Paroxsymal Atrial Fibrillation [DTA1AR3PZYC: 5] - Hold off anticoagulation - pending [...] d/t low BP. # Nutrition - [facility] Diet -- Hematology/Oncology-- # Mild Thrombocytopenia, unclear [...] Glasgow MD PGY1, Internal Medicine Cardiology S2, #0424 I have seen the patient and reviewed [...] the ICU team. Gretchen Yoon MD Pager [phone] Natalia Claros APRN - 12/02/2019 8:38 AM [...] midline MOTOR: RUE:5/5 LUE:5/5 RLE: 5/5 LLE: 5/ No pronator drift LABS: Recent Labs 12/02/19 [...] - We are signing off. Please page [phone] with any questions or concerns. For questions please call [facility] pager [phone] Natalia Claros APRN 12/02/2019 8:38 AM Clinical Documentation Improvement: Active Hospital Problems Diagnosis ??? Acute ST elevation myocardial infarction (STEMI) of inferior wall ??? Intracranial hemorrhage ??? Hyperlipidemia ??? Tobacco abuse ??? Claudication from peripheral vascular disease, left Resolved Hospital Problems No resolved problems to display. Tello Hsu, FENCE POST CUTTER - 12/02/2019 2:06 AM EDT 12/01/192009 Oxygen [...] number below. Electronically signed by: Latoya Ivey [facility] ([phone]), at 11/30/2019 8:32 PM ASSESSMENT: Patient states he is breathing easier than last night. Still increased WOB PLAN: Wean FiO2 as tolerated. Patient to CT Scan in afternoon. Upon arrival back in [facility] placed on low flow NC at 4 lpm with sats in low 90's. CATESBY GROSS, RCP2 Darrell Glasgow MD - 12/01/2019 7:08 AM [...] complications include novel onset, paroxysmal atrial fibrillation [UMH2SJ4OXGE: 4] & L-sided diplopia with potential hemineglect for which CVA evaluationto be pursued. Active Problems/Subjective: - 11/28: admitted for inferior STEMI, RV failure requiring pressor - got lytics, aspirin and plavix load, heparin gtt, and eptifibatide. 3 MACARIO stents to RCA. [place] cath - low wedge & CVP so [...] 68, pCO2 27. Repleted Mag & K. 9/10 chest pain: ekg no significant change, with [...] a non-culprit artery. S/P DESx3 in the iorurmvu-lj-wlqcdv RCA. Aspiration thrombectomy performed, and integrellin bolus [...] complications include novel onset, paroxysmal atrial fibrillation [HQN7HV9YEVG: 4] & L-sided diplopia with potential hemineglect [...] Anticoagulation/Arrhythmia # Novel Onset, Paroxsymal Atrial Fibrillation [[id number]: 4] - Obtain: TTE - Pending CVA [...] d/t low BP. # Nutrition - [facility] Diet -- Hematology/Oncology-- # Mild Thrombocytopenia, unclear [...] MD, PGY1 PGY3, Internal Medicine Cardiology S2, #[id number] I have seen the patient and reviewed [...] down the line. Gretchen Yoon MD Pager [phone] ?? Gretchen Yoon MD Pager [phone] Natalia Claros APRN - 12/01/2019 1:33 AM [...] Q24H ??? metroNIDAZOLE 500 mg Intravenous Q8H EBCK ??? melatonin 3 mg Oral Nightly ??? [...] No facial asymmetry Tongue midline MOTOR: RUE:55 LUE:5/5 RLE: 55 LLE: 5 No pronator drift LABS: Recent Labs 12/01/19 [...] per primary team For questions please call [employer] pager [phone] Natalia Claros APRN 12/01/2019 7:42 AM Clinical Documentation Improvement: Active Hospital Problems Diagnosis ??? Acute ST elevation myocardial infarction (STEMI) of inferior wall ??? Intracranial hemorrhage ??? Hyperlipidemia ??? Tobacco abuse ??? Claudication from peripheral vascular disease, left Resolved Hospital Problems No resolved problems to display. Tello Hsu, FENCE POST CUTTER - 11/30/2019 8:44 PM EDT Respiratory Therapy [...] number below. Electronically signed by: Latoya Ivey [facility] ([phone]), at 11/30/2019 8:32 PM ASSESSMENT: Patient had [...] comfort and wean FIO2 as tolerated. TELLO HSU RRT Clement Almaraz - 11/30/2019 4:06 PM EDT Narrative:Visited in response to request for Psychology Intern services. Pt was awake, alert, oriented and in bed. Assessment:Patient coping positively with stresses of illness/hospitalization at this time. Pt says that he is hoping to get better and pt is living with and has children and grandchildren. Pt haspurpose of life and has reason to get getter and to be with family. Outcome: Provided emotional and spiritual support and encouraging presence. Psychology Intern services accepted.Conversation to build trusting relationship.Provided pastoral [...] complications include novel onset, paroxysmal atrial fibrillation [[id number]: 4] & L-sided diplopia with potential hemineglect for which CVA evaluationto be pursued. Active Problems/Subjective: - Overnight, CVP < 12 for which a total of 1 L IVF provided - Today AM, patient complains of subjectively reported, left-sided hemineglect with floaters and diplopia [see: exam]. - Otherwise, c/o neck pain 2/2 R IJ [place] & L radial A line. Otherwise, denies [...] a non-culprit artery. S/P DESx3 in the tbfnmcyk-zq-bzwbfs RCA. Aspiration thrombectomy performed, and integrellin bolus [...] complications include novel onset, paroxysmal atrial fibrillation [[id number]: 4] & L-sided diplopia with potential hemineglect [...] Anticoagulation/Arrhythmia # Novel Onset, Paroxsymal Atrial Fibrillation [[id number]: 4] - Obtain: TTE to confirm rhythm [...] d/t low BP. # Nutrition - [facility] Diet -- Hematology/Oncology-- # Mild Thrombocytopenia, unclear [...] MD, PGY3 PGY3, Internal Medicine Cardiology S2, #[id number] I have seen the patient and reviewed [...] down the line. Gretchen Yoon MD Pager [phone] Paola Capps RN - 11/30/2019 6:57 AM EDT PT still requiring 4 of levo, several attempts to titrate down (maps in 70;s) But maps would drop toless than 65. Pt very restless in bed Raising and lowering head denies pain . Integrillin stopped [id number] when bottle complete , urine tea colored [...] PCP: France Lam MD PCP phone #: [phone] Synthetic Department Supervisor: None ID/Chief Complaint: Chest pain History of Present Illness: 74 y.o male with no significant PMH, was in usual state of health until yesterday when he woke up at 4am this morning with severe crushing substernal chest pain /. He took two full strength aspirin and came to [facility] ED. At there was found [...] Compazine. He was transferred directly to [facility] via [facility] for further management. Patient had an emergent PCI with 3 MACARIO stents placed to his RCA, with mild disease of LCX (report pending) at [facility]. He was found to be persistently hypotensive requiring Levo up to 10mcg/min. He was transferred to [facility] after the cath procedure. Bedside RHC [...] ??? Penicillins Pt doesn't remember reaction ??? Slitxpp-Cvp-Dne Reductase Inhibitors Stiff neck, upset stomach, back pain Family History: Mother: Father: [place] 2 Uncles with MIs Social History: Tobacco: Current active smoker 1 ppd. 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 Vitals: Last value Range last 24 [...] in the last 7068 hours. Invalid input(s): LEUDOFEODOM1A Heme: No results for input(s): LDH, HAPTOGLOBIN, [...] prior to transfer and PCI at [facility]. Massive inferior STEMI with troponin level 20, currently in CVCC due to pressor requirement. BedsideRHC demonstrated evidence of elevated right sided heart failure, but his wedge was wnl. He received 1L bolus with improvement of his blood pressure and reduction of his pressor requirement. PLAN: Admit to Cardiology, S2 Team Pager # [phone] #Inferior STEMI, LEYLA 149 - Resolving EKG [...] STEMI s/p lytic therapy. Transferred to [facility] and underwent successful PCI of the RCA with MACARIO x3. Gretchen Yoon MD Pager [phone] documented in this encounter Procedure Notes Juventino [...] a suspected line-associated infection. Location of Procedure: [facility] Risks and Benefits: The risks and [...] side:right An Introducer (PSI Kit) was used. [place]. Insertion Side: right. Insertion Site: internal jugular. Catheter Details: Number of Lumens: 1 Catheter Type: heparin-coated The line was placed over a guidewire. Confirmation of Venous Placement: Venous placement was confirmed by transducing the pressure. Introducer Insertion Attempts: 1 Comments: Floating the [place]-Mo Catheter Attempts: 1 Comments: Sterile Dressing: Biopatch [...] better pt back in SR. Please page [phone] for any more cares or concerns Plan [...] complications include novel onset, paroxysmal atrial fibrillation [[id number]: 5]& L-sided diplopia with potential hemineglect for [...] Total Evaluation Minutes, Occupational Therapy: 10 Pager: [phone] FRANCINE Nuñez Occupational Therapy Rehabilitation Department Plan [...] complications include novel onset, paroxysmal atrial fibrillation [[id number]: 5] & L-sided diplopia with potential hemineglect [...] hand rails). Baseline Mobility: Independent. Drives. 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 Time IN / OUT: 3145-0154 Total Evaluation Minutes, Physical Therapy: 15(gtx1) Barbara Baldwin, PT Pager: [phone] Physical Therapy Inpatient Rehabilitation Department Plan of [...] he receives all he needs through [facility]. Consult refused. Romain Tran, MSN, RN-, [facility] Tobacco Sap Basis Administrator [facility] Pager #[phone] Plan of Care - Romain Oglesby OT - 12/03/2019 1:19 PM EDT Occupational Therapy Evaluation Patient profile: Angel Luis Slainas is a 74 y.o. 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 Pager: [phone] ROMAIN OGLESBY OT 12/03/2019 Occupational Therapy Rehabilitation [...] in an outpatient cardiac rehabilitation program at [facility] was discussed. Patient agrees to a referral to this program. His has been a cardiac rehab patient at [facility] and he is familiar with [...] complications include novel onset, paroxysmal atrial fibrillation [DXA5QZ7WTYK: 5] & L-sided diplopia with potential hemineglect [...] hand rails). Baseline Mobility: Independent. Drives. 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 Time IN / OUT: 7037-3950 Total Evaluation Minutes, Physical Therapy: 25(eval, gtx1) Barbara Baldwin, PT Pager: [phone] Physical Therapy Inpatient Rehabilitation Department Consult Note [...] Cuff, ECG Leads, gutierres, IV sites, SCD's/venodynes, [place] sites - tubing, A line Board Nutritional [...] (L) 12/01/2019 Nutritional Intake Current bed: [facility] Assessment: Patient is with an area [...] Please contact JOHANNA NOBLES RN on pager [phone] or the wound care team at [phone] or pager [phone] skin and wound care concerns or questions. [...] Salinas would be surrogate decision maker per [place] surrogate decision making law. Any patient receiving carspousee at [facility] must abide by [place] law. The hierarchy for surrogate decisionmaking is: [...] (i) The agent with financial power of stab setter and driller or a conservator appointed in accordance with [...] Insurance: N/A Prescription Coverage: Yes Preferred Pharmacy: [place], [place] Other: No Primary Care Provider: France Lam MD [phone] Patient/Caregiver Goals of Treatment: Return home Potential Needs for Transition of Care: Rehab/SNF: Based on discussions with the multi-disciplinary healthcare team, the patient would benefit from SNF level of care at discharge. ?? I have met with the patient to discuss discharge planning needs. I have provided the [facility], Officeof Care Management letter from the Herb Doctor pertaining to rehab referrals. I have also provided a letter describing our affiliations within the [facility] and educated them about their [...] patient have [facility]: ?? [facility] [address] [place] [address] ?? [address]. [address] , [place] [address] Note routed to Stagecraft Teacher who will communicate referrals to facilities [...] referrals are placed. Patient requests referral to [facility] [employer]. PHONE: [phone] FAX: [phone] Referral routed to the Stagecraft Teacher for matching with agency/vendor and to [...] Insured w/ Medicare. Gets medications filled at [facility] in [place], [place]. Son to transport at discharge Plan: Discharge dispo depending on patient's physical recovery; SNF vs home w/ VNA. A member of the Care Management team will continue to monitor progress, follow for continuity of care and assist with transition of care planning. Derian Pascual, RN Pager: [phone] Plan of Care - Estefani Baeza RN [...] sl nitroglycerin tablet now. 2137: Pain now 6/10 nitro gtt initiated. Goal as discussed with Dr. Winn is MAP >60, SBP <160, pain free. 5: Pain continues to move between 5-7/10. Dr. Winn here, contacting Dr. Downs. Now [...] ??? Penicillins Pt doesn't remember reaction ??? Zphfjwd-Rfc-Ijj Reductase Inhibitors Stiff neck, upset stomach, back [...] concerning for stroke. Patient presented to [facility] in transfer for a STEMI after presenting [...] ??? Penicillins Pt doesn't remember reaction ??? Vukfcht-Ozi-Zuj Reductase Inhibitors Stiff neck, upset stomach, back [...] file Gets together: Not on file Attends jewish service: Not on file Active member of [...] L Elbow flexion 5/5 R, 5/5 L Cigar Wrapper Tender Automatic LE: 5/5 R, 5/5 L Hip flexion [...] PGY3 Neurology Resident 11/30/2019 Vascular Neurology Pager [phone] Standard [facility] Swallow Screen: This screen is to be [...] diet as medical provider deems appropriate. Consider SENIOR RESIDENT CARE DIRECTOR consult for full evaluation and diet recommendations. [...] Afib admitted s/p thrombolysis and Cath-Stent to [facility] who developed R sided visual symptoms. [...] hours. Evan Mejia MD Department of Neurology [facility] Brief Op Note - Gretchen Yoon MD - 11/29/2019 8:38 PM EDT Brief Operative Note Patient Name: Angel Luis Salinas : [id number] MR#: [id number] Case Date: 11/29/2019 Surgeon: Surgeon(s) and Role: * Gretchen Yoon MD - Primary * Aidan Ward MD - Fellow Preoperative diagnosis: Inferior STEMI Postoperative diagnosis: Inferior STEMI Procedure(s) (LRB): CARDIAC CATHETERIZATION (N/A) Findings: Discrete 90% stenosis in the prox-to-mid RCA. Severe diffuse disease in the distal vessel. Discrete LCX stenosis in a non-culprit artery. S/P DESx3 in the nzzcgahb-lv-hayyld RCA. Aspiration thrombectomy performed, and integrellin bolus x2+ infusion. Nicardipine given during case due to intermittent sluggish flow. Complications: None documented in this encounter Plan of Treatment Upcoming Encounters Date Type Specialty Care Team Description 06/30/2022 Office Visit Endocrinology Alan Terrell MD [facility] ENDOCRINOLOGY [place], [place] 0[address] (Wo rk) Scheduled Referrals Name [...] are i n the results section. CT MODOC OF BRAY W STAT 11/30/2019 4:36 Res [...] athologist Signature Potassium 3.9 3.5 - 5.0 [facility] [employer] mmol/L [facility] Comment: Please note: ??Patients with [...] Organization Address City/State/[place] [address] (ABNORMAL) Hemogram (12/08/2019 12:39 PM EDT) Analysis Performed At Patho logist Time Signature WBC 9.9 (H) 4.0 - 9.5 M[place] JAN x10(3)/[facility] LABORATORY RBC 4.51 (L) 4.58 - [place] JAN 5.54 [facility] x10(6)/[facility] LABORATORY Hemoglobin 13.0 (L) 13.7 - [place] JAN 16.5 gm/dL [facility] Hematocrit 40.5 40.5 - [employer] 48.5 % [facility] MCV 89.8 82.9 - [place] JAN 93.1 [facility] LABORATORY MCH 28.8 27.5 - [employer] 32.1 pg [facility] MCHC 32.1 32.0 - [place] JAN 35.7 gm/dL [facility] Platelets 214 145 - 357 MELINA [employer] x10(3)/[facility] LAB[facility]ORY RDWSD 49.2 (H) 36.0 - [employer] 45.0 [facility] LABORATORY RDWCV 15.1 (H) 11.4 - [place] JAN 13.8 % [facility] MPV 12.1 7.6 - 12.9 [facility] nRBC % Auto 0.0 % [facility] nRBC Abs Auto 0.000 0.000 - [place] JAN 0.000 [facility] x10(3)/[facility] LABORATORY Specimen Anatomical Collection Method Collection Time Receive d Time (Source) Location / / Volume Laterality Blood specimen 12/08/2019 12:39 0 (specimen) PM EDT 12:47 PM EDT Resulting Agency Comment Spec In Lab Gretchen Yoon MD HEMATOLOGY ORDERABLES Performing Organization Address City/[facility]/ZIP Code Phon e Number [address] Hepatic Function Panel (12/08/2019 6:28 AM EDT) athologist Signature Total Protein 6.6 6.1 - 8.0 [place] JAN gm/dL [facility] Albumin 3.2 3.2 - 5.2 [facility] JAN gm/dL [facility] AST 18 0 - 39 [facility] unit/L [facility] ALT 13 0 - 55 [facility] unit/L [facility] Alk Phos 64 40 - 130 [facility] unit/L [facility] Total 0.4 0.2 - 1.3 [facility] JAN Bilirubin mg/dL [facility] Bili, Direct 0.1 0.0 - 0.3 [facility] JAN mg/dL [facility] Specimen Anatomical Collection Method Collection Time Receive d Time (Source) Location / / Volume Laterality Blood specimen Venous Draw / 12/08/2019 6:28 AM 2019 6:36 (specimen) Unknown EDT AM EDT Resulting Agency Comment Spec In Lab Riki Stevens MD CHEMISTRY ORDERABLES Performing Organization Address City/[facility]/ZIP Code Phon e Number [address] (ABNORMAL) TSH (12/08/2019 6:28 AM EDT) athologist Signature TSH 5.27 (H) 0.27 - 4.20 [place] JAN mcIU/mL [facility] Specimen Anatomical Collection Method Collection Time Receive d Time (Source) Location / / Volume Laterality Blood specimen Venous Draw / 12/08/2019 6:28 AM 2019 6:36 (specimen) Unknown EDT AM EDT Resulting Agency Comment Spec In Lab Darrell Glasgow MD CHEMISTRY ORDERABLES Performing Organization Address City/[facility]/[place]IP [place] [address] Potassium (12/08/2019 6:28 AM EDT) P athologist Signature Potassium 4.2 3.5 - 5.0 [facility] mmol/L [facility] Comment: Please note: ??Patients with [...] Lagos MD CHEMISTRY ORDERABLES Performing Organization Address City/[facility]/[place]IP [place] [address] (ABNORMAL) Differential, Automated (12/08/2019 12:43 AM EDT) Patholo gist Method Time Signature Neutrophils % 60.7 % [facility] Neutr Abs (ANC) 6.81 (H) 1.70 - [facility] 6.10 [facility] x10(3)/[facility] LABORATORY Lymphocytes % 23.4 % [facility] Lymphocytes Abs 2.6 0.9 - 3.2 [facility] x10(3)/[facility] LABORATORY Monocytes % 10.0 % [facility] Monocyte Abs 1.1 (H) 0.3 - 0.9 [facility] x10(3)/[facility] LABORATORY Eosinophils % 3.7 % [facility]ORY Eosinophils Abs 0.4 0.0 - 0.4 [facility] x10(3)/[facility] LABORATORY Basophils % 1.2 % [facility]OR[facility]ORY Basophils Abs 0.1 0.0 - 0.1 [facility] x10(3)/[facility] LABORATORY Immature Gran % 1.00 % [facility] [...] Organization Address City/State/ZIP Code Phon e Number [place] [id number] (ABNORMAL) Hemogram (12/08/2019 12:43 AM EDT) Analysis Performed At Patho logist Time Signature WBC 11.2 (H) 4.0 - 9.5 [facility] x10(3)/[facility]ORY RBC 4.46 (L) 4.58 - [facility] 5.54 [facility] x10(6)/[facility] LABORATORY Hemoglobin 13.1 (L) 13.7 - [facility] 16.5 gm/dL [facility] Hematocrit 40.5 40.5 - [facility] 48.5 % [facility] MCV 90.8 82.9 - [facility] 93.1 [facility] LABORATORY MCH 29.4 27.5 - [facility] 32.1 pg [facility] MCHC 32.3 32.0 - [facility] 35.7 gm/dL [facility] Platelets 215 145 - 357 [facility] x10(3)/[facility] LABORATORY RDWSD 49.8 (H) 36.0 - [facility] JAN 45.0 [facility] RDWCV 15.2 (H) 11.4 - [facility] 13.8 % [facility] MPV 12.3 7.6 - 12.9 M[place] JAN [facility] LABORATORY nRBC % Auto 0.0 % [facility]OR[facility]ORY nRBC Abs Auto 0.000 0.000 - MELINA MONAE 0.000 [facility] x10(3)/[facility] LABORATORY Specimen Anatomical Collection Method Collection Time Receive d Time (Source) Location / / Volume Laterality Blood specimen 12/08/2019 12:43 0 (specimen) AM EDT 12:52 AM EDT Resulting Agency Comment Spec In Lab Riki Stevens MD HEMATOLOGY ORDERABLES Performing Organization Address City/State/ZIP Code Phon e Number [address] Magnesium (12/08/2019 12:43 AM EDT) P athologist Signature Magnesium 1.01 0.69 - 1.07 [facility] mmol/L [facility] Specimen Anatomical Collection Method Collection Time Receive d Time (Source) Location / / Volume Laterality Blood specimen 12/08/2019 12:43 0 (specimen) AM EDT 12:52 AM EDT Resulting Agency Comment Spec In Lab Gretchen Yoon MD CHEMISTRY ORDERABLES Performing Organization Address City/State/ZIP Code Phon e Number [address] (ABNORMAL) BMP w/fasting Glucose (12/08/2019 12:43 AM EDT) P athologist Signature Glucose 106 (H) 65 - 99 [facility] Fasting mg/dL [facility] Comment: ?Fasting* Glucose Interpretive C [...] of Diabetes Mellitus, Position Statement from the [place] [employer]. ??Diabete s Care, Volume 33, Supplement 1, Jul 2009 BUN 14 10 - 20 mg/dL [facility] Creatinine 1.16 0.80 - 1.50 [...] of body mass or the acutely ill. http://[employer]/[facility] eGFR 72 >=60 mL/min/1.73 m?? [facility] Comment: The eGFR was calculated using the CKD-EP I equation. As with all creatinine based estimates of kidney function, eGFR values calculated with the CKD-EPI equation are not accurate in patients wi th acute kidney failure, extremes of body mass or the acutely ill. http://[employer]/[facility] Specimen Anatomical Collection Method Collection Time Receive d Time (Source) Location / / Volume Laterality Blood specimen 12/08/2019 12:43 0 (specimen) AM EDT 12:52 AM EDT Resulting Agency Comment Spec In Lab Gretchen Yoon MD CHEMISTRY ORDERABLES Performing Organization Address [facility] [place] [address] Heparin (unfractionated) Level (12/08/2019 12:43 AM EDT) athologist Signature Heparin UFH 0.60 IU/mL [facility] LABORATORY Comment: [...] Lagos MD HEMATOLOGY ORDERABLES Performing Organization Address [facility]/ZIP Code Phon e Number [address] Potassium (12/07/2019 8:39 PM EDT) athologist Signature Potassium 4.1 3.5 - 5.0 [facility] mmol/L [facility] Comment: Please note: ??Patients with [...] Lagos MD CHEMISTRY ORDERABLES Performing Organization Address City/[facility]/ZIP [place] [address] Potassium (12/07/2019 4:02 PM EDT) P athologist Signature Potassium 4.0 3.5 - 5.0 [facility] mmol/L [facility] Comment: Please note: ??Patients with [...] Yoon MD CHEMISTRY ORDERABLES Performing Organization Address City/[facility]/ZIP [place] [address] (ABNORMAL) Hemogram (12/07/2019 4:02 PM EDT) Analysis Performed At Patho logist Time Signature WBC 17.4 (H) 4.0 - 9.5 [facility] [facility] x10(3)/[facility] LABORATORY RBC 4.58 4.58 - [employer] 5.54 [facility] x10(6)/[facility] LABORATORY Hemoglobin 13.5 (L) 13.7 - M[place] JAN 16.5 gm/dL [facility] Hematocrit 40.8 40.5 - [place] JAN 48.5 % [facility] MCV 89.1 82.9 - M[place] JAN 93.1 fL [facility] MCH 29.5 27.5 - MELINA JAN 32.[address] [facility] LABORATORY MCHC 33.1 32.0 - M[place]INA MONAE 35.7 gm/dL [facility] Platelets 238 145 - 357 [facility] x10(3)/[facility] LABORATORY RDWSD 48.8 (H) 36.0 - MELINA MONAE 45.0 [facility] LABORATORY RDWCV 15.0 (H) 11.4 - [facility] JAN 13.8 % [facility] MPV 12.2 7.6 - 12.9 [facility] nRBC % Auto 0.0 % [facility] LABORATORY nRBC Abs Auto 0.000 0.000 - MELINA MARSHJAN 0.000 [facility] x10(3)/[facility] LABORATORY Specimen Anatomical Collection Method Collection Time Receive d Time (Source) Location / / Volume Laterality Blood specimen 12/07/2019 4:02 PM 020 4:08 (specimen) EDT PM EDT Resulting Agency Comment Spec In Lab Gretchen Yoon MD HEMATOLOGY ORDERABLES Performing Organization Address City/State/Z[place] [address] EKG 12 Lead (12/07/2019 [...] (Bezet) Calculated P -12 degrees MUSE SYSTEM Arlee Calculated R 10 degrees MUSE SYSTEM Arlee Calculated T -138 degrees MUSE SYSTEM Arlee INTERPRETATION Supraventricular tachycardia MUSE SYSTEM Low voltage [...] athologist Signature Potassium 4.2 3.5 - 5.0 [facility] mmol/L [facility] Comment: Please note: ??Patients with [...] Organization Address City/State/[place] [address] Heparin (unfractionated) Level (12/07/2019 [...] Lagos MD HEMATOLOGY ORDERABLES Performing Organization Address City/[facility]/ZIP Code Phon e Number [place] [phone]OS[address] Heparin (unfractionated) Level (12/07/2019 [...] Lagos MD HEMATOLOGY ORDERABLES Performing Organization Address [facility]/[place] [address] (ABNORMAL) Differential, Automated (12/07/2019 5:20 AM EDT) Patholo gist Method Time Signature Neutrophils % 62.4 % [facility] Neutr Abs (ANC) 5.46 1.70 - [facility] 6.10 [facility] x10(3)/[facility] LABORATORY Lymphocytes % 20.3 % [facility] Lymphocytes Abs 1.8 0.9 - 3.2 [facility] x10(3)/[facility]ORY Monocytes % 11.0 % [facility] Monocyte Abs 1.0 (H) 0.3 - 0.9 [facility] x10(3[facility]ORY Eosinophils % 4.5 % [facility] Eosinophils Abs 0.4 0.0 - 0.4 [facility] x10(3[facility]ORY Basophils % 0.9 % [facility] Basophils Abs 0.1 0.0 - 0.1 [facility] x10(3)/[facility]ATORY Immature Gran % 0.90 % [...] Organization Address City/State/[place] [address] (ABNORMAL) Hemogram (12/07/2019 5:20 AM EDT) Analysis Performed At Patho logist Time Signature WBC 8.7 4.0 - 9.5 [facility] x10(3)/[facility] LAB[facility]ATORY RBC 4.20 (L) 4.58 - [facility] 5.54 [facility] x10(6)/[facility] LABORATORY Hemoglobin 12.3 (L) 13.7 - [facility] 16.5 gm/dL [facility] Hematocrit 37.4 (L) 40.5 - MELINA MONAE 48.5 % [facility] MCV 89.0 82.9 - M[place]INA [place] 93.1 [facility] LABORATORY MCH 29.3 27.5 - MELINA [place] 32.1 pg [facility] MCHC 32.9 32.0 - MELINA [place] 35.7 gm/dL [facility] Platelets 181 145 - 357 [facility] x10(3[facility]ATORY RDWSD 47.7 (H) 36.0 - MELINA [place] 45.0 [facility] LABORATORY RDWCV 14.8 (H) 11.4 - MELINA MONAE 13.8 % [facility] MPV 12.3 7.6 - 12.9 MELINA MONAE [facility] LABORATORY nRBC % Auto 0.0 % [facility] nRBC Abs Auto 0.000 0.000 - MELINA MONAE 0.000 [facility] x10(3)/[facility] LABORATORY Specimen Anatomical Collection Method Collection Time Receive d Time (Source) Location / / Volume Laterality Blood specimen 12/07/2019 5:20 AM 020 5:37 (specimen) EDT AM EDT Resulting Agency Comment Spec In Lab Riki Stevens MD HEMATOLOGY ORDERABLES Performing Organization Address City/State/Z[place] [address] Magnesium (12/07/2019 5:20 AM EDT) P athologist Signature Magnesium 0.89 0.69 - 1.07 [facility] mmol/L [facility] Specimen Anatomical Collection Method Collection Time Receive d Time (Source) Location / / Volume Laterality Blood specimen 12/07/2019 5:20 AM 020 5:37 (specimen) EDT AM EDT Resulting Agency Comment Spec In Lab Gretchen Yoon MD CHEMISTRY ORDERABLES Performing Organization Address City/[facility]/ZIP Code Phon e Number [address] (ABNORMAL) BMP w/fasting Glucose (12/07/2019 5:20 AM EDT) P athologist Signature Glucose 100 (H) 65 - 99 [facility] Fasting mg/dL [facility] Comment: ?Fasting* Glucose Interpretive C [...] of Diabetes Mellitus, Position Statement from the [place] [employer]. ??Diabete s Care, Volume 33, [...] of body mass or the acutely ill. http://[employer]/[facility] eGFR 101 >=60 mL/min/1.73 m?? [facility] Comment: The eGFR was calculated using the CKD-EP I equation. As with all creatinine based estimates of kidney function, eGFR values calculated with the CKD-EPI equation are not accurate in patients wi th acute kidney failure, extremes of body mass or the acutely ill. http://[employer]/[facility]ANT[facility] Specimen Anatomical Collection Method Collection Time Receive d Time (Source) Location / / Volume Laterality Blood specimen 12/07/2019 5:20 AM 020 5:37 (specimen) EDT AM EDT Resulting Agency Comment Spec In Lab Gretchen Yoon MD CHEMISTRY ORDERABLES Performing Organization Address City/State/[place] [address] Heparin (unfractionated) Level (12/06/2019 [...] Organization Address City/State/[place] [address] Head wo Contrast [...] questions regarding this report, please contact [facility] number below. ? Electronically signed by: Merari Collins [facility] ([phone]), at 12/06/2019 10:06 PM Narrative 12/06/2019 10:06 [...] Signature WBC 10.4 (H) 4.0 - 9.5 [facility] RBC 4.32 (L) 4.58 - [facility] JAN 5.54 [facility] x10(6)/[facility] LABORATORY Hemoglobin 12.5 (L) 13.7 - [facility] JAN 16.5 gm/dL [facility] Hematocrit 38.4 (L) 40.5 - [facility] 48.5 % [facility] MCV 88.9 82.9 - [facility] JAN 93.1 [facility] LABORATORY MCH 28.9 27.5 - MELINA JAN 32.1 pg [facility] MCHC 32.6 32.0 - [facility] JAN 35.7 gm/dL [facility] Platelets 194 145 - 357 [facility] x10(3)/[facility]ATORY RDWSD 46.9 (H) 36.0 - [facility] JAN 45.0 [facility] LABORATORY RDWCV 14.6 (H) 11.4 - [facility] JAN 13.8 % [facility] MPV 11.9 7.6 - 12.9 [facility] JAN [facility] LABORATORY nRBC % Auto 0.0 % [facility] nRBC Abs Auto 0.000 0.000 - [facility] JAN 0.000 [facility] x10(3)/[facility] LABORATORY Specimen Anatomical Collection Method Collection Time Receive d Time (Source) Location / / Volume Laterality Blood specimen 12/06/2019 4:20 PM 020 4:31 (specimen) EDT PM EDT Resulting Agency Comment Spec In Lab Gretchen Yoon MD HEMATOLOGY ORDERABLES Performing Organization Address City/State/ZIP Code Phon e Number [place] [phone]OS[address] LAB[address]ORY Drive Heparin (unfractionated) Level (12/06/2019 [...] Organization Address City/State/ZIP Code Phon e Number [place] [phone] [facility] LAB[address]ORY Drive Heparin (unfractionated) Level (12/06/2019 [...] Lagos MD HEMATOLOGY ORDERABLES Performing Organization Address City/[facility]/ZIP [place] [address] Magnesium (12/06/2019 3:36 AM EDT) P athologist Signature Magnesium 0.86 0.69 - 1.07 [facility] mmol/L [facility] Specimen Anatomical Collection Method Collection Time Receive d Time (Source) Location / / Volume Laterality Blood specimen 12/06/2019 3:36 AM 020 3:45 (specimen) EDT AM EDT Resulting Agency Comment Spec In Lab Gretchen Yoon MD CHEMISTRY ORDERABLES Performing Organization Address City/[facility]/ZIP [place] [address] (ABNORMAL) BMP w/fasting Glucose (12/06/2019 3:36 AM EDT) P athologist Signature Glucose 103 (H) 65 - 99 [facility] Fasting mg/dL [facility] Comment: ?Fasting* Glucose Interpretive C [...] of Diabetes Mellitus, Position Statement from the [place] [employer]. ??Diabete s Care, Volume 33, [...] of body mass or the acutely ill. http://[employer]/DHMCnkf eGFR 99 >=60 mL/min/1.73 m?? [facility] Comment: The eGFR was calculated using the CKD-EP I equation. As with all creatinine based estimates of kidney function, eGFR values calculated with the CKD-EPI equation are not accurate in patients wi th acute kidney failure, extremes of body mass or the acutely ill. http://[employer]/DHMCnkf Specimen Anatomical Collection Method Collection Time Receive d Time (Source) Location / / Volume Laterality Blood specimen 12/06/2019 3:36 AM 020 3:45 (specimen) EDT AM EDT Resulting Agency Comment Spec In Lab Gretchen Yoon MD CHEMISTRY ORDERABLES Performing Organization Address City/State/[place] [address] (ABNORMAL) Hemogram (12/06/2019 3:36 AM EDT) Analysis Performed At Patho logist Time Signature WBC 9.2 4.0 - 9.5 [facility]ORY RBC 3.99 (L) 4.58 - [facility] JAN 5.54 [facility] x10(6)/[facility] LABORATORY Hemoglobin 11.9 (L) 13.7 - [facility] JAN 16.5 gm/dL [facility] Hematocrit 35.5 (L) 40.5 - [facility] JAN 48.5 % [facility] MCV 89.0 82.9 - [facility] JAN 93.1 [facility] LABORATORY MCH 29.8 27.5 - MELINA JAN 32.1 pg [facility] MCHC 33.5 32.0 - [facility] JAN 35.7 gm/dL [facility] Platelets 164 145 - 357 [facility] x10(3)/[facility] LABORATORY RDWSD 47.6 (H) 36.0 - MELINA JAN 45.0 [facility] LABORATORY RDWCV 14.7 (H) 11.4 - MELINA JAN 13.8 % [facility] MPV 11.9 7.6 - 12.9 [facility] nRBC % Auto 0.0 % [facility]ORY nRBC Abs Auto 0.000 0.000 - [facility]AN 0.000 [facility] x10(3)/[facility] LABORATORY Specimen Anatomical Collection Method Collection Time Receive d Time (Source) Location / / Volume Laterality Blood specimen 12/06/2019 3:36 AM 020 3:45 (specimen) EDT AM EDT Resulting Agency Comment Spec In Lab Gretchen Yoon MD HEMATOLOGY ORDERABLES Performing Organization Address City/State/[place] [address] (ABNORMAL) Differential, Automated (12/05/2019 10:52 PM EDT) [facility] Method Time Signature Neutrophils % 61.9 % [facility] Neutr Abs (ANC) 6.02 1.70 - [facility] 6.10 [facility] x10(3)/[facility] LABORATORY Lymphocytes % 22.4 % [facility] Lymphocytes Abs 2.2 0.9 - 3.2 [facility] x10(3)/[facility] Monocytes % 10.4 % [facility] Monocyte Abs 1.0 (H) 0.3 - 0.9 [facility] x10(3)/[facility] Eosinophils % 4.1 % [facility] Eosinophils Abs 0.4 0.0 - 0.4 [facility] x10(3)/[facility] Basophils % 0.7 % [facility] Basophils Abs 0.1 0.0 - 0.1 [facility] x10(3)/[facility]ORY Immature Gran % 0.50 % [...] Barrera MD HEMATOLOGY ORDERABLES Performing Organization Address City/[facility]/[place] [address] (ABNORMAL) Hemogram (12/05/2019 10:52 PM EDT) Analysis Performed At Patho logist Time Signature WBC 9.7 (H) 4.0 - 9.5 [facility] x10(3)/[facility] LABORATORY RBC 4.07 (L) 4.58 - MELINA JAN 5.54 [facility] x10(6)/[facility] LABORATORY Hemoglobin 11.9 (L) 13.7 - [facility] 16.5 gm/dL [facility] Hematocrit 36.4 (L) 40.5 - [facility] 48.5 % [facility] MCV 89.4 82.9 - [facility] 93.1 [facility] LABORATORY MCH 29.2 27.5 - [facility] 32.1 pg [facility] MCHC 32.7 32.0 - [facility] 35.7 gm/dL [facility] Platelets 167 145 - 357 [facility] x10(3)/[facility]ORATORY RDWSD 47.7 (H) 36.0 - [facility] JAN 45.0 [facility] LABORATORY RDWCV 14.6 (H) 11.4 - [facility] JAN 13.8 % [facility] MPV 12.1 7.6 - 12.9 [facility] LABORATORY nRBC % Auto 0.0 % [facility]OR[facility]ORY nRBC Abs Auto 0.000 0.000 - [facility] 0.000 [facility] x10(3)/[facility] LABORATORY Specimen Anatomical Collection Method Collection Time Receive d Time (Source) Location / / Volume Laterality Blood specimen 12/05/2019 10:52 0 (specimen) PM EDT 10:59 PM EDT Resulting Agency Comment Spec In Lab Mandi Barrera MD HEMATOLOGY ORDERABLES Performing Organization Address City/State/[place] [address] Heparin (unfractionated) Level (12/05/2019 [...] Organization Address City/State/ZIP Code Phon e Number [place] [phone] HOSPITAL LAB[address]ORY Drive MRI Brain wwo Contrast [...] below. ? Electronically signed by: ALBA Jenkins [facility] ([phone]), at 12/05/2019 10:02 PM Narrative 12/05/2019 10:02 [...] Time Signature WBC 8.7 4.0 - 9.5 [facility]ORY RBC 4.17 (L) 4.58 - MEL[place] JAN 5.54 [facility] x10(6)/[facility] LABORATORY Hemoglobin 12.4 (L) 13.7 - MELINA JAN 16.5 gm/dL [facility] Hematocrit 37.0 (L) 40.5 - [facility] JAN 48.5 % [facility] MCV 88.7 82.9 - [facility] JAN 93.1 [facility] LABORATORY MCH 29.7 27.5 - [facility] 32.1 pg [facility] MCHC 33.5 32.0 - MELINA JAN 35.7 gm/dL [facility] Platelets 173 145 - 357 [facility] x10(3)/[facility] LABORATORY RDWSD 47.3 (H) 36.0 - [facility] JAN 45.0 [facility] LABORATORY RDWCV 14.6 (H) 11.4 - [facility] JAN 13.8 % [facility] MPV 12.1 7.6 - 12.9 [facility] JAN [facility] LABORATORY nRBC % Auto 0.0 % [facility] LABORATORY nRBC Abs Auto 0.000 0.000 - M[place]INA JAN 0.000 [facility] x10(3)/[facility] LABORATORY Specimen Anatomical Collection Method Collection Time Receive d Time (Source) Location / / Volume Laterality Blood specimen 12/05/2019 1:00 PM 020 1:13 (specimen) EDT PM EDT Resulting Agency Comment Spec In Lab Gretchen Yoon MD HEMATOLOGY ORDERABLES Performing Organization Address City/State/[place] [address] EKG 12 Lead (12/05/2019 10:52 AM EDT) Component Value Ref Range Test Analysis Performed Pathologis t Method Time At Signature Ventricular rate 72 BPM MUSE SYSTEM Atrial Rate 72 BPM MUSE SYSTEM P-R Interval 138 ms MUSE SYSTEM QRS Duration 96 ms MUSE SYSTEM Q-T Interval 396 ms MUSE SYSTEM QTC Calculated 433 ms MUSE SYSTEM (Bezet) Calculated P Arlee 65 degrees MUSE SYSTEM Calculated R Arlee 13 degrees MUSE SYSTEM Calculated T Arlee 0 degrees MUSE SYSTEM INTERPRETATION Sinus rhythm Occasional Premature ventricular complexe s MUSE SYSTEM Possible Inferior infarct (cited on or before 29-NOV-2019) Abnormal ECG When compared with ECG of 04-DEC-2019 10:43, Sinus rhythm has replaced Atrial fibrillation Vent. rate has decreased BY ??86 BPM Confirmed by MD Ceja Daniel ([id number]) on 12/05/2019 3:55:22 PM Specimen Anatomical Collection [...] Department: Vascular Surgery Lab VASCUBASE Report Patient: [id number] (ANGEL LUIS SALINAS) CPT: 03743 ICD10: I26.99 Referring Physician: GRETCHEN YOON ?? [...] athologist Signature Magnesium 0.87 0.69 - 1.07 [facility] mmol/L [facility] Specimen Anatomical Collection Method Collection Time Receive d Time (Source) Location / / Volume Laterality Blood specimen 12/05/2019 4:18 AM 020 4:31 (specimen) EDT AM EDT Resulting Agency Comment Spec In Lab Gretchen Yoon MD CHEMISTRY ORDERABLES Performing Organization Address City/State/Z[place] [address] (ABNORMAL) BMP w/fasting Glucose (12/05/2019 4:18 AM EDT) P athologist Signature Glucose 104 (H) 65 - 99 [facility] Fasting mg/dL [facility] Comment: ?Fasting* Glucose Interpretive C [...] of Diabetes Mellitus, Position Statement from the [place] [employer]. ??Diabete s Care, Volume 33, [...] of body mass or the acutely ill. http://[employer]/[facility]ANT[facility] eGFR 84 >=60 mL/min/1.73 m?? [facility] Comment: The eGFR was calculated using the CKD-EP I equation. As with all creatinine based estimates of kidney function, eGFR values calculated with the CKD-EPI equation are not accurate in patients wi th acute kidney failure, extremes of body mass or the acutely ill. http://[employer]/DHnkf Specimen Anatomical Collection Method Collection Time Receive d Time (Source) Location / / Volume Laterality Blood specimen 12/05/2019 4:18 AM 020 4:31 (specimen) EDT AM EDT Resulting Agency Comment Spec In Lab Gretchen Yoon MD CHEMISTRY ORDERABLES Performing Organization Address City/State/Z[place] [address] (ABNORMAL) Hemogram (12/05/2019 4:18 AM EDT) Analysis Performed At Patho logist Time Signature WBC 8.6 4.0 - 9.5 [facility]ORY RBC 4.28 (L) 4.58 - MELINA JAN 5.54 [facility] x10(6)/[facility] LABORATORY Hemoglobin 12.4 (L) 13.7 - [facility] 16.5 gm/dL [facility] Hematocrit 37.3 (L) 40.5 - [facility] 48.5 % [facility] MCV 87.1 82.9 - [facility] 93.1 [facility] LABORATORY MCH 29.0 27.5 - MELINA JAN 32.1 pg [facility] MCHC 33.2 32.0 - [place] JAN 35.7 gm/dL [facility] Platelets 163 145 - 357 [facility] x10(3)/[facility]ORATORY RDWSD 46.4 (H) 36.0 - [facility] JAN 45.0 [facility] LABORATORY RDWCV 14.4 (H) 11.4 - [facility] JAN 13.8 % [facility] MPV 11.7 7.6 - 12.9 [facility] LABORATORY nRBC % Auto 0.0 % [facility] LABORATORY nRBC Abs Auto 0.000 0.000 - [facility] JAN 0.000 [facility] x10(3)/[facility] LABORATORY Specimen Anatomical Collection Method Collection Time Receive d Time (Source) Location / / Volume Laterality Blood specimen 12/05/2019 4:18 AM 020 4:31 (specimen) EDT AM EDT Resulting Agency Comment Spec In Lab Gretchen Yoon MD HEMATOLOGY ORDERABLES Performing Organization Address City/State/[place] [address] Cardiac for Morphology [...] questions regarding this report, please contact [facility] number below. ? Electronically signed by: Roselyn Luciano [facility] ([phone]), at 12/04/2019 6:16 PM Narrative 12/04/2019 6:16 PM EDT EXAMINATION: CT CARDIAC FOR MORPHOLOGY & FUNCTION CLINICAL HISTORY: Pt with AFib and intra cranial hemorrhage, evaluation for possible left atrial appendage closure TECHNIQUE: After timing bolus, 0.6 mm [facility] axial contiguous sections were obtained through [...] from neck/greatest puja meter to back wall: FRENCH 91, CAU 13: ??19 mm CORTES ??1, [...] from neck/greatest puja meter to back wall: FRENCH 91, CAU 13: 19 mm CORTES 1, [...] number below. Electronically signed by: Roselyn Luciano [facility] ([phone]), at 12/04/2019 6:16 PM Gretchen Yoon MD IMG CT ORDERABLES (ABNORMAL) Hemogram (12/04/2019 12:55 PM EDT) Analysis Performed At Patho logist Time Signature WBC 8.9 4.0 - 9.5 [facility] x10(3)/[facility] LABORATORY RBC 4.69 4.58 - [facility] 5.54 [facility] x10(6)/[facility] LABORATORY Hemoglobin 13.5 (L) 13.7 - [facility] 16.5 gm/dL [facility] Hematocrit 41.7 40.5 - [facility] 48.[facility] % [facility] MCV 88.9 82.9 - MELINA MONAE 93.1 [facility] LABORATORY MCH 28.8 27.5 - MELINA MONAE 32.1 pg [facility] MCHC 32.4 32.0 - MELINA MONAE 35.7 gm/dL [facility] Platelets 196 145 - 357 [facility] x10(3)/[facility] LABORATORY RDWSD 46.7 (H) 36.0 - MELINA JAN 45.0 [facility] LABORATORY RDWCV 14.5 (H) 11.4 - MELINA JAN 13.8 % [facility] MPV 12.1 7.6 - 12.9 [facility] nRBC % Auto 0.0 % [facility] LABORATORY nRBC Abs Auto 0.000 0.000 - MELINA MONAE 0.000 [facility] x10(3)/[facility] LABORATORY Specimen Anatomical Collection Method Collection Time Receive d Time (Source) Location / / Volume Laterality Blood specimen 12/04/2019 12:55 0 1:06 (specimen) PM EDT PM EDT Resulting Agency Comment Spec In Lab Gretchen Yoon MD HEMATOLOGY ORDERABLES Performing Organization Address City/State/[place] [address] EKG 12 Lead (12/04/2019 10:43 AM EDT) Component Value Ref Range Test Analysis Performed Pathologis t Method Time At Signature Ventricular rate 158 BPM MUSE SYSTEM Atrial Rate 102 BPM MUSE SYSTEM QRS Duration 92 ms MUSE SYSTEM Q-T Interval 294 ms MUSE SYSTEM QTC Calculated 476 ms MUSE SYSTEM (Bezet) Calculated R Arlee 17 degrees MUSE SYSTEM Calculated T Arlee 90 degrees MUSE SYSTEM INTERPRETATION Atrial fibrillation with rapid ventricular response MUSE SYSTEM Possible Inferior infarct (cited on or before 29-NOV-2019) Abnormal ECG When compared with ECG of 30-NOV-2019 21:07, Atrial fibrillation has replaced Sinus rhythm Vent. rate has increased BY ??65 BPM Confirmed by MD Ceja Daniel ([id number]) on 12/05/2019 8:59:44 AM Specimen Anatomical Collection Method Collection Time Receive d Time (Source) Location / / Volume Laterality 12/04/2019 10:43 12/05/2019 8:59 AM EDT AM EDT Gretchen Yoon MD ECG ORDERABLES Performing Organization Address City/State/ZIP Code Phon e Number MUSE SYSTEM (ABNORMAL) Magnesium (12/04/2019 4:28 AM EDT) athologist Signature Magnesium 1.17 (H) 0.69 - 1.07 [facility]/L [facility] Specimen Anatomical Collection Method Collection Time Receive d Time (Source) Location / / Volume Laterality Blood specimen 12/04/2019 4:28 AM 020 4:40 (specimen) EDT AM EDT Resulting Agency Comment Spec In Lab Gretchen Yoon MD CHEMISTRY ORDERABLES Performing Organization Address City/State/Z[place] [address] (ABNORMAL) BMP w/fasting Glucose (12/04/2019 4:28 AM EDT) P athologist Signature Glucose 108 (H) 65 - 99 [facility] Fasting mg/dL [facility] Comment: ?Fasting* Glucose Interpretive C [...] of Diabetes Mellitus, Position Statement from the [place] [employer]. ??Diabete s Care, Volume 33, [...] of body mass or the acutely ill. http://[employer]/[facility] eGFR 98 >=60 mL/min/1.73 m?? [facility] Comment: The eGFR was calculated using the CKD-EP I equation. As with all creatinine based estimates of kidney function, eGFR values calculated with the CKD-EPI equation are not accurate in patients wi th acute kidney failure, extremes of body mass or the acutely ill. http://[employer]/[facility] Specimen Anatomical Collection Method Collection Time Receive d Time (Source) Location / / Volume Laterality Blood specimen 12/04/2019 4:28 AM 020 4:40 (specimen) EDT AM EDT Resulting Agency Comment Spec In Lab Gretchen Yoon MD CHEMISTRY ORDERABLES Performing Organization Address City/State/[place] [address] (ABNORMAL) Hemogram (12/04/2019 4:28 AM EDT) Analysis Performed At Patho logist Time Signature WBC 7.8 4.0 - 9.5 [facility] x10(3)/[facility] LABORATORY RBC 4.10 (L) 4.58 - [facility] 5.54 [facility] x10(6)/[facility] LABORATORY Hemoglobin 12.0 (L) 13.7 - [facility] 16.5 gm/dL [facility] Hematocrit 36.5 (L) 40.5 - MELINA MONAE 48.5 % [facility] MCV 89.0 82.9 - M[place]INA [place] 93.1 [facility] LABORATORY MCH 29.3 27.5 - [place] 32.1 pg [facility] MCHC 32.9 32.0 - [place] 35.7 gm/dL [facility] Platelets 151 145 - 357 [facility] x10(3)/[facility] LABORATORY RDWSD 46.9 (H) 36.0 - MELINA MONAE 45.0 [facility] LABORATORY RDWCV 14.4 (H) 11.4 - MELINA JAN 13.8 % [facility] MPV 12.2 7.6 - 12.9 [facility] LAB[facility] nRBC % Auto 0.0 % [facility] nRBC Abs Auto 0.000 0.000 - MELINA MONAE 0.000 [facility] x10(3)/[facility] LABORATORY Specimen Anatomical Collection Method Collection Time Receive d Time (Source) Location / / Volume Laterality Blood specimen 12/04/2019 4:28 AM 020 4:40 (specimen) EDT AM EDT Resulting Agency Comment Spec In Lab Gretchen Yoon MD HEMATOLOGY ORDERABLES Performing Organization Address City/State/[place] [address] Potassium (12/03/2019 7:55 PM EDT) P athologist Signature Potassium 3.9 3.5 - 5.0 [facility]/L [facility] Comment: Please note: ??Patients with [...] Organization Address City/State/[place] [address] Potassium (12/03/2019 1:57 PM EDT) P athologist Signature Potassium 3.7 3.5 - 5.0 MELINA JAN mmol/L [facility] Comment: Please note: ??Patients with [...] Yoon MD CHEMISTRY ORDERABLES Performing Organization Address City/[facility]/ZIP [place] [address] (ABNORMAL) Hemogram (12/03/2019 1:57 PM EDT) Analysis Performed At Patho logist Time Signature WBC 8.8 4.0 - 9.5 MELINA JAN x10(3)/[facility] LABORATORY RBC 4.27 (L) 4.58 - MELINA JAN 5.54 [facility] x10(6)/[facility] LABORATORY Hemoglobin 12.5 (L) 13.7 - MELINA JAN 16.5 gm/dL [facility] Hematocrit 37.5 (L) 40.5 - MELINA JAN 48.5 % [facility] MCV 87.8 82.9 - MELINA JAN 93.1 [facility] LABORATORY MCH 29.3 27.5 - MELINA JAN 32.1 pg [facility] MCHC 33.3 32.0 - MELINA JAN 35.7 gm/dL [facility] Platelets 158 145 - 357 MELINA JAN x10(3)/[facility] LABORATORY RDWSD 46.9 (H) 36.0 - MELINA JAN 45.0 [facility] LABORATORY RDWCV 14.5 (H) 11.4 - MELINA JAN 13.8 % [facility] MPV 12.2 7.6 - 12.9 MELINA MONAE fL [facility] nRBC % Auto 0.0 % [facility] nRBC Abs Auto 0.000 0.000 - MELINA MONAE 0.000 [facility] x10(3)/[facility] LABORATORY Specimen Anatomical Collection Method Collection Time Receive d Time (Source) Location / / Volume Laterality Blood specimen 12/03/2019 1:57 PM 020 2:21 (specimen) EDT PM EDT Resulting Agency Comment Spec In Lab Gretchen Yoon MD HEMATOLOGY ORDERABLES Performing Organization Address City/State/ZIP Code Phon e Number [address] Magnesium (12/03/2019 4:02 AM EDT) P athologist Signature Magnesium 0.79 0.69 - 1.07 [facility] mmol/L [facility] Specimen Anatomical Collection Method Collection Time Receive d Time (Source) Location / / Volume Laterality Blood specimen 12/03/2019 4:02 AM 020 4:16 (specimen) EDT AM EDT Resulting Agency Comment Spec In Lab Gretchen Yoon MD CHEMISTRY ORDERABLES Performing Organization Address City/[facility]/ZIP Code Phon e Number [address] (ABNORMAL) BMP w/fasting Glucose (12/03/2019 4:02 AM EDT) P athologist Signature Glucose 100 (H) 65 - 99 [facility] Fasting mg/dL [facility] Comment: ?Fasting* Glucose Interpretive C [...] of Diabetes Mellitus, Position Statement from the [place] [employer]. ??Diabete s Care, Volume 33, [...] of body mass or the acutely ill. http://[employer]/[facility] eGFR 92 >=60 mL/min/1.73 m?? [facility] Comment: The eGFR was calculated using the CKD-EP I equation. As with all creatinine based estimates of kidney function, eGFR values calculated with the CKD-EPI equation are not accurate in patients wi th acute kidney failure, extremes of body mass or the acutely ill. http://[employer]/[facility] Specimen Anatomical Collection Method Collection Time Receive d Time (Source) Location / / Volume Laterality Blood specimen 12/03/2019 4:02 AM 020 4:16 (specimen) EDT AM EDT Resulting Agency Comment Spec In Lab Gretchen Yoon MD CHEMISTRY ORDERABLES Performing Organization Address City/State/ZIP [place] [address] (ABNORMAL) Hemogram (12/03/2019 4:02 AM EDT) Analysis Performed At Patho logist Time Signature WBC 9.1 4.0 - 9.5 [facility] LAB[facility]ORY RBC 4.01 (L) 4.58 - MELINA JAN 5.54 [facility] x10(6)/[facility] LABORATORY Hemoglobin 11.8 (L) 13.7 - [facility] 16.5 gm/dL [facility] Hematocrit 35.6 (L) 40.5 - [facility] 48.5 % [facility] MCV 88.8 82.9 - [facility] 93.1 [facility] LABORATORY MCH 29.4 27.5 - MELINA JAN 32.1 pg [facility] MCHC 33.1 32.0 - MELINA JAN 35.7 gm/dL [facility] Platelets 130 (L) 145 - 357 [facility] x10(3)/[facility] LABORATORY RDWSD 46.6 (H) 36.0 - MELINA JAN 45.0 [facility] LABORATORY RDWCV 14.4 (H) 11.4 - [facility] 13.8 % [facility] MPV 12.4 7.6 - 12.9 [facility] LABORATORY nRBC % Auto 0.0 % [facility] nRBC Abs Auto 0.000 0.000 - MELINA JAN 0.000 [facility] x10(3)/[facility] LABORATORY Specimen Anatomical Collection Method Collection Time Receive d Time (Source) Location / / Volume Laterality Blood specimen 12/03/2019 4:02 AM 020 4:16 (specimen) EDT AM EDT Resulting Agency Comment Spec In Lab Gretchen Yoon MD HEMATOLOGY ORDERABLES Performing Organization Address City/State/[place] [address] XR Chest One View [...] below. ? Electronically signed by: Ashly Marley [facility] ([phone]), at 12/02/2019 1:35 PM Narrative 12/02/2019 1:35 [...] - 9.5 [facility] x10(3[facility] LABORATORY RBC 4.00 (L) 4.58 - MELINA JAN 5.54 [facility] x10(6)/[facility] LABORATORY Hemoglobin 11.9 (L) 13.7 - MELINA JAN 16.5 gm/dL [facility] Hematocrit 35.7 (L) 40.5 - [facility] JAN 48.5 % [facility] MCV 89.3 82.9 - MELINA JAN 93.1 [facility] LABORATORY MCH 29.8 27.5 - MELINA JAN 32.1 pg [facility] MCHC 33.3 32.0 - MELINA JAN 35.7 gm/dL [facility] Platelets 120 (L) 145 - 357 [facility] x[facility](3[facility] LABORATORY RDWSD 47.5 (H) 36.0 - MELINA JAN 45.0 [facility] LABORATORY RDWCV 14.6 (H) 11.4 - MELINA JAN 13.8 % [facility] MPV 12.0 7.6 - 12.9 MELINA JAN [facility] LABORATORY nRBC % Auto 0.0 % [facility] nRBC Abs Auto 0.000 0.000 - MELINA JAN 0.000 [facility] x10(3)/[facility] LABORATORY Specimen Anatomical Collection Method Collection Time Receive d Time (Source) Location / / Volume Laterality Blood specimen 12/02/2019 12:50 0 1:22 (specimen) PM EDT PM EDT Resulting Agency Comment Spec In Lab Gretchen Yoon MD HEMATOLOGY ORDERABLES Performing Organization Address City/State/ZIP Code Phon e Number [address] Blue Tube HOLD (12/02/2019 4:55 AM EDT) athologist Signature Blue Hold Sample in [facility] lab. [facility] Specimen Anatomical Collection Method Collection Time Receive d Time (Source) Location / / Volume Laterality Blood specimen Venous Draw / 12/02/2019 4:55 AM 2019 5:03 (specimen) Unknown EDT AM EDT Darrell Glasgow MD HEMATOLOGY ORDERABLES Performing Organization Address City/State/ZIP Code Phon e Number [address] Magnesium (12/02/2019 4:55 AM EDT) athologist Signature Magnesium 0.85 0.69 - 1.07 [facility] mmol/L [facility] Specimen Anatomical Collection Method Collection Time Receive d Time (Source) Location / / Volume Laterality Blood specimen 12/02/2019 4:55 AM 020 5:02 (specimen) EDT AM EDT Resulting Agency Comment Spec In Lab Gretchen Yoon MD CHEMISTRY ORDERABLES Performing Organization Address City/State/ZIP Code Phon e Number [address] (ABNORMAL) BMP w/fasting Glucose (12/02/2019 4:55 AM EDT) athologist Signature Glucose 114 (H) 65 - 99 [facility] Fasting mg/dL [facility] Comment: ?Fasting* Glucose Interpretive C [...] of Diabetes Mellitus, Position Statement from the [place] [employer]. ??Diabete s Care, Volume 33, [...] of body mass or the acutely ill. http://[employer]/[facility] eGFR 94 >=60 mL/min/1.73 m?? [facility] Comment: The eGFR was calculated using the CKD-EP I equation. As with all creatinine based estimates of kidney function, eGFR values calculated with the CKD-EPI equation are not accurate in patients wi th acute kidney failure, extremes of body mass or the acutely ill. http://[employer]/[facility]MCnkf Specimen Anatomical Collection Method Collection Time Receive d Time (Source) Location / / Volume Laterality Blood specimen 12/02/2019 4:55 AM 020 5:02 (specimen) EDT AM EDT Resulting Agency Comment Spec In Lab Gretchen Yoon MD CHEMISTRY ORDERABLES Performing Organization Address City/State/ZIP Code Phon e Number [address] (ABNORMAL) Hemogram (12/02/2019 4:55 AM EDT) Analysis Performed At Patho logist Time Signature WBC 9.3 4.0 - 9.5 MELINA JAN x10(3)/[facility] LABORATORY RBC 3.71 (L) 4.58 - MELINA JAN 5.54 [facility] x10(6)/[facility] LABORATORY Hemoglobin 10.8 (L) 13.7 - [facility] 16.5 gm/dL [facility] Hematocrit 33.1 (L) 40.5 - [facility] 48.5 % [facility] MCV 89.2 82.9 - [facility] 93.1 [facility] LABORATORY MCH 29.1 27.5 - MELINA JAN 32.1 pg [facility] MCHC 32.6 32.0 - MELINA JAN 35.7 gm/dL [facility] Platelets 93 (L) 145 - 357 [facility] LABORATORY RDWSD 47.1 (H) 36.0 - MELINA JAN 45.0 [facility] LABORATORY RDWCV 14.6 (H) 11.4 - [facility] 13.8 % [facility] MPV 11.7 7.6 - 12.9 [facility] nRBC % Auto 0.0 % [facility]ORY nRBC Abs Auto 0.000 0.000 - MELINA JAN 0.000 [facility] x10(3)/[facility] LABORATORY Specimen Anatomical Collection Method Collection Time Receive d Time (Source) Location / / Volume Laterality Blood specimen 12/02/2019 4:55 AM 020 5:02 (specimen) EDT AM EDT Resulting Agency Comment Spec In Lab Gretchen Yoon MD HEMATOLOGY ORDERABLES Performing Organization Address City/[facility]/ZIP Code Phon e Number [address] Transfuse 1 unit platelets, [...] questions regarding this report, please contact [facility] number below. ? Electronically signed by: Angel Luis Barboza MD, [facility] ([phone]), at 12/01/2019 8:02 PM Narrative 12/01/2019 8:02 [...] 6:20 PM EDT) athologist Signature Dispensed? Yes [facility]ORY Specimen Anatomical Collection Method Collection Time Receive d Time (Source) Location / / Volume Laterality Blood specimen 12/01/2019 6:20 PM 020 6:18 (specimen) EDT PM EDT Gretchen Yoon MD BLOOD BANK ORDERABLES Performing Organization Address City/[facility] Code [facility] [place] [address] Duplex for DVT, Arm, Unilat (12/01/2019 5:08 PM EDT) Component Value Ref Test Analysis Performed At [facility] Range Method Time Signature VB Text Department: Vascular Surgery Lab VASCUBASE Report Patient: [id number] (ANGEL LUIS SALINAS) CPT: 84244 ICD10: R60.0 Referring Physician: GRETCHEN YOON ?? [...] / Volume Laterality 12/01/2019 5:08 PM EDT Gertchen Yoon MD VASCULAR ORDERABLES Performing Organization Address [...] below. ? Electronically signed by: Merari Collins [facility] ([phone]), at 12/01/2019 3:53 PM Narrative 12/01/2019 3:53 [...] Scan, Peripheral Blood (12/01/2019 12:51 PM EDT) [facility] Method Time Signature Plat Estimate Decreased [facility] RBC Morphology Normal [facility] Giant Less than 1 /HPF [facility] Platelets [facility] Specimen Anatomical Collection Method Collection Time Receive d Time (Source) Location / / Volume Laterality Blood specimen 12/01/2019 12:51 0 1:05 (specimen) PM EDT PM EDT Resulting Agency Comment Spec In Lab Riki Stevens MD HEMATOLOGY ORDERABLES Performing Organization Address City/State/ZIP [place] [address] (ABNORMAL) Differential, Automated (12/01/2019 12:51 PM EDT) [facility] Method Time Signature Neutrophils % 74.9 % [facility] LABORATORY Neutr Abs (ANC) 6.34 (H) 1.70 - [facility] 6.10 [facility] x10(3)/[facility] L LABORATORY Lymphocytes % 11.4 % [facility] LABORATORY Lymphocytes Abs 1.0 0.9 - 3.2 [facility] x10(3)/[facility] LABORATORY Monocytes % 12.4 % [facility] LABORATORY Monocyte Abs 1.0 (H) 0.3 - 0.9 [facility] x10(3)/[facility] LABORATORY Eosinophils % 0.4 % [facility] LABORATORY Eosinophils Abs 0.0 0.0 - 0.4 [facility] x10(3)/[facility] LABORATORY Basophils % 0.4 % [facility] LABORATORY Basophils Abs 0.0 0.0 - 0.1 [facility] x10(3)/[facility] LABORATORY Immature Gran % 0.50 % WHITE [...] Pita Gran Abs 0.04 0.00 - 0.04 x10(3)/[facility] LABORATORY Specimen Anatomical Collection Method Collection Time Receive d Time (Source) Location / / Volume Laterality Blood specimen 12/01/2019 12:51 0 1:05 (specimen) PM EDT PM EDT Resulting Agency Comment Spec In Lab Riki Stevens MD HEMATOLOGY ORDERABLES Performing Organization Address City/State/[place] [address] (ABNORMAL) Hemogram (12/01/2019 12:51 PM EDT) Analysis Performed At Patho logist Time Signature WBC 8.4 4.0 - 9.5 [facility] x10(3)/[facility] LABORATORY RBC 3.69 (L) 4.58 - [facility] 5.54 [facility] x10(6)/[facility] LABORATORY Hemoglobin 10.8 (L) 13.7 - [facility] 16.5 gm/dL [facility] Hematocrit 32.4 (L) 40.5 - [facility] 48.5 % [facility] MCV 87.8 82.9 - [facility] 93.1 [facility] LABORATORY MCH 29.3 27.5 - [facility] 32.[address] [facility] LABORATORY MCHC 33.3 32.0 - [facility] 35.7 gm/dL [facility] Platelets 72 (L) 145 - 357 [facility] x10(3)/[facility] LABORATORY RDWSD 47.2 (H) 36.0 - [facility] 45.0 [facility] LABORATORY RDWCV 14.6 (H) 11.4 - [facility] 13.8 % [facility] MPV 12.2 7.6 - 12.9 [facility] LABORATORY nRBC % Auto 0.0 % [facility] LABOR[facility]ORY nRBC Abs Auto 0.000 0.000 - [facility] 0.000 [facility] x10(3)/[facility] LABORATORY Specimen Anatomical Collection Method Collection Time Receive d Time (Source) Location / / Volume Laterality Blood specimen 12/01/2019 12:51 0 1:05 (specimen) PM EDT PM EDT Resulting Agency Comment Spec In Lab Riki Stevens MD HEMATOLOGY ORDERABLES Performing Organization Address City/[facility]/ZIP Code Phon e Number [address] (ABNORMAL) Coox2 (12/01/2019 11:42 AM EDT) Analysis Performed At Patho logist Time Signature pO2 Coox 30 mmHg [facility] LABORATORY Hgb Blood Gas 11.6 (L) 13.7 - [facility] 16.5 gm/dL [facility] O2HB Coox 60.8 % [facility] LABORATORY COHB Coox 0.6 % [facility]ATORY Comment: Nonsmokers: 0.5-1.5% COHB Smokers: Variable, but usually less than 10% Toxic: 20-30% COHB Lethal: Greater than 60% COHB METHB Coox 0.6 <=1.5 % [facility] LABORATORY Source Coox Mixed Venous [facility] LABORATORY Specimen Anatomical Collection Method Collection Time Receive d Time (Source) Location / / Volume Laterality Blood specimen 12/01/2019 11:42 0 (specimen) AM EDT 11:42 AM EDT Gretchen Yoon MD CHEMISTRY ORDERABLES Performing Organization Address City/[facility]/ZIP Code Phon e Number [address] Sedimentation rate (12/01/2019 3:55 AM EDT) P athologist Signature Sed Rate 25 3 - 46 [facility] mm/hr [facility] Comment: Effective June 11, 2019 [...] Winn MD HEMATOLOGY ORDERABLES Performing Organization Address City/[facility]/ZIP Code Phon e Number [address] (ABNORMAL) CRP, acute inflammation [...] Winn MD CHEMISTRY ORDERABLES Performing Organization Address City/[facility]/ZIP Code Phon e Number [address] ABORH Recheck Status (12/01/2019 3:55 AM EDT) [facility] Method Time Signature ABORH Recheck Order Placed [facility] LABORATORY ABORH Type Complete [facility] LABORATORY Specimen Anatomical Collection Method Collection Time Receive d Time (Source) Location / / Volume Laterality Blood specimen 12/01/2019 3:55 AM 020 4:15 (specimen) EDT AM EDT Resulting Agency Comment Spec In Lab Lewis Gee MD BLOOD BANK ORDERABLES Performing Organization Address City/[facility]/ZIP [place] [address] Antibody screen (12/01/2019 3:55 AM EDT) [facility] Method Time Signature Ab Screen Negative [facility] LABORATORY Expires at 12/04/2019 [facility] [id number] on: [facility] Specimen Anatomical Collection Method Collection Time Receive d Time (Source) Location / / Volume Laterality Blood specimen 12/01/2019 3:55 AM 020 4:15 (specimen) EDT AM EDT Resulting Agency Comment Spec In Lab Lewis Gee MD BLOOD BANK ORDERABLES Performing Organization Address City/[facility] [place] [address] ABO/Rh Typing (12/01/2019 3:55 AM EDT) athologist [facility] ABORh Type AB Pos [facility] LABORATORY Specimen Anatomical Collection Method Collection Time Receive d Time (Source) Location / / Volume Laterality Blood specimen 12/01/2019 3:55 AM 020 4:15 (specimen) EDT AM EDT Resulting Agency Comment Spec In Lab Lewis Gee MD BLOOD BANK ORDERABLES Performing Organization Address City/[facility] [place] [address] (ABNORMAL) Troponin (12/01/2019 3:55 AM EDT) athologist [facility] Troponin-T 4.35 (H) 0.00 - [facility] 0.00 ng/mL [facility] Comment: result rechecked-slw The 99th [...] additional sample may be indicated. Reference: Third [place] Definition of Myocardial Infarction. Journal of the [place] [employer] 2012;60:1581-98 Specimen Anatomical Collection Method Collection Time Receive d Time (Source) Location / / Volume Laterality Blood specimen 12/01/2019 3:55 AM 020 4:00 (specimen) EDT AM EDT Resulting Agency Comment Spec In Lab Gretchen Yoon MD CHEMISTRY ORDERABLES Performing Organization Address City/State/ZIP Code Phon e Number [address] Magnesium (12/01/2019 3:55 AM EDT) P athologist Signature Magnesium 0.96 0.69 - 1.07 [facility] mmol/L [facility] Specimen Anatomical Collection Method Collection Time Receive d Time (Source) Location / / Volume Laterality Blood specimen 12/01/2019 3:55 AM 020 4:00 (specimen) EDT AM EDT Resulting Agency Comment Spec In Lab Gretchen Yoon MD CHEMISTRY ORDERABLES Performing Organization Address City/State/ZIP [place] [address] (ABNORMAL) BMP w/fasting Glucose (12/01/2019 3:55 AM EDT) P athologist Signature Glucose 148 (H) 65 - 99 [facility] Fasting mg/dL [facility] Comment: ?Fasting* Glucose Interpretive C [...] of Diabetes Mellitus, Position Statement from the [place] [employer]. ??Diabete s Care, Volume 33, [...] of body mass or the acutely ill. http://[employer]/[facility] eGFR 91 >=60 mL/min/1.73 m?? [facility] Comment: The eGFR was calculated using the CKD-EP I equation. As with all creatinine based estimates of kidney function, eGFR values calculated with the CKD-EPI equation are not accurate in patients wi th acute kidney failure, extremes of body mass or the acutely ill. http://[employer]/DHnkf Specimen Anatomical Collection Method Collection Time Receive d Time (Source) Location / / Volume Laterality Blood specimen 12/01/2019 3:55 AM 020 4:00 (specimen) EDT AM EDT Resulting Agency Comment Spec In Lab Gretchen Yoon MD CHEMISTRY ORDERABLES Performing Organization Address City/State/[place] [address] (ABNORMAL) Hemogram (12/01/2019 3:55 AM EDT) Analysis Performed At Patho logist Time Signature WBC 11.0 (H) 4.0 - 9.5 [facility] JAN x10(3[facility] LABORATORY RBC 3.46 (L) 4.58 - MELINA JAN 5.54 [facility] x10(6)/[facility] LABORATORY Hemoglobin 10.2 (L) 13.7 - [facility] 16.5 gm/dL [facility] LABORATORY Hematocrit 31.2 (L) 40.5 - [facility] 48.5 % [facility] LABORATORY MCV 90.2 82.9 - [facility] 93.1 [facility] LABORATORY MCH 29.5 27.5 - MELINA JAN 32.1 pg [facility] LABORATORY MCHC 32.7 32.0 - MELINA JAN 35.7 gm/dL [facility] LABORATORY Platelets 98 (L) 145 - 357 [facility] x10(3)/[facility] LABORATORY RDWSD 47.9 (H) 36.0 - [facility] JAN 45.0 [facility] LABORATORY RDWCV 14.6 (H) 11.4 - [facility] JAN 13.8 % [facility] LABORATORY MPV 12.3 7.6 - 12.9 [facility] nRBC % Auto 0.0 % [facility] LABORATORY nRBC Abs Auto 0.000 0.000 - [facility] JAN 0.000 [facility] x10(3)/[facility] LABORATORY Specimen Anatomical Collection Method Collection Time Receive d Time (Source) Location / / Volume Laterality Blood specimen 12/01/2019 3:55 AM 020 4:00 (specimen) EDT AM EDT Resulting Agency Comment Spec In Lab Gretchen Yoon MD HEMATOLOGY ORDERABLES Performing Organization Address City/State/[place] [address] (ABNORMAL) BLOOD GAS 2 ARTERIAL (11/30/2019 10:39 PM EDT) Analysis Performed At Patho logist Time Signature pH Art 7.45 7.35 - [facility] 7.45 [facility] LABORATORY pCO2 Art 23 (L) 35 - 45 [facility] mmHg [facility] LABORATORY pO2 Art 76 (L) 85 - 104 [facility] mmHg [facility] LABORATORY HCO3 Art 15.3 (L) 20.0 - [facility] 26.0 [facility] mmol/L [facility] LABORATORY BE Art -8.7 (L) -3.0 - 3.0 [facility] mmol/L [facility] LABORATORY Hgb Blood Gas 11.7 (L) 13.7 - [facility] 16.5 gm/dL [facility] LABORATORY O2HB Art 94.2 94.0 - [facility] 97.0 % [facility] LABORATORY COHB Art 0.5 % [facility] LABORATORY Comment: Nonsmokers: 0.5-1.5% COHB Smokers: Variable, but usually less than 10% Toxic: 20-30% COHB Lethal: Greater than 60% COHB METHB Art 0.6 <=1.5 % [facility] LABORATORY Na Whole Blood 133 (L) 135 - 145 mmol/L [facility] LABORATORY K Whole Blood 3.8 [...] Whole Bld 120 65 - 199 mg/dL [facility] LABORATORY Comment: Diabetes: >=200 mg/dL plus symp toms. Lactate WB 0.8 0.5 - 2.2 mmol/L [facility] LABORATORY FIO2 Art 100 % [facility] LABORATORY PF Ratio Art 76 [facility] LABORATORY Specimen Anatomical Collection Method Collection Time Receive d Time (Source) Location / / Volume Laterality Blood specimen 11/30/2019 10:39 0 (specimen) PM EDT 10:39 PM EDT Gretchen Yoon MD CHEMISTRY ORDERABLES Performing Organization Address City/[facility]/[place] [address] EKG 12 Lead (11/30/2019 [...] (Bezet) Calculated P 12 degrees MUSE SYSTEM Arlee Calculated R 19 degrees MUSE SYSTEM Arlee Calculated T -47 degrees MUSE SYSTEM Arlee INTERPRETATION Sinus rhythm with Premature supraventricular complexes [...] Yoon MD ECG ORDERABLES Performing Organization Address City/[facility]/ZIP Code Phon e Number MUSE SYSTEM (ABNORMAL) Urinalysis Microscopic Exam (11/30/2019 8:40 PM EDT) P athologist Signature RBC UA 27 (H) 0 - 3 /HPF [facility] LABORATORY WBC UA 4 (H) 0 - 3 /HPF [facility] LABORATORY Hyaline Cast 3 (H) 0 - 2 /LPF [facility] LABORATORY Specimen (Source) Anatomical Collection Method Collection Time Re ceived Time Location / / Volume Laterality Urine specimen 11/30/2019 8:40 11/30/2019 obtained via PM EDT 10:51 PM EDT indwelling urinary catheter (specimen) Resulting Agency Comment Spec In Lab Rossy Winn MD URINE ORDERABLES Performing Organization Address City/State/[place] [address] [facility] [address] (ABNORMAL) Urinalysis with reflex Culture (11/30/2019 8:40 PM EDT) Patholo gist Method Time Signature Glucose UA Negative Negative [facility] mg/dL [facility]OR[facility] Protein UA Negative Negative [facility] mg/dL [facility] Bilirubin UA Negative Negative [facility] mg/dL [facility] LABORATORY Comment: Clinical correlation required for positi ve Urine Bilirubin results as false positive may occur with some drugs and d rug related products. If a false positive is suspected a serum total bili morales should be considered if clinically indicated. Urobilinogen UA Normal Normal mg/dL [facility] LABORATORY pH UA 5.5 5.0 - 8.0 [facility] LABORATORY Blood UA Moderate (A) Negative mg/dL [facility] LABORATORY Ketones UA 40 (A) Negative mg/dL [facility] LABORATORY Nitrite UA Negative Negative [facility] LABORATORY Leukocytes UA Trace (A) Negative [facility] LABORATORY Appearance UA Clear Clear [facility] LABORATORY Spec Crum Lynne UA 1.026 1.006 - 1.030 [facility] LABORATORY Color UA Yellow Yellow [facility] LABORATORY Culture Reflexed No [facility] LABORATORY Specimen (Source) Anatomical Collection Method Collection Time Re ceived Time Location / / Volume Laterality Urine specimen 11/30/2019 8:40 11/30/2019 obtained via PM EDT 10:51 PM EDT indwelling urinary catheter (specimen) Resulting Agency Comment Spec In Lab Gretchen Yoon MD URINE ORDERABLES Performing Organization Address City/[facility]/ZIP Code Phon e Number [place] [phone] [facility] LABORATORY Drive (ABNORMAL) pro-Brain Natriuretic Peptide (11/30/2019 8:30 PM EDT) P athologist Signature ProBNP 2,802 (H) <=125 [facility] pg/mL [facility] LABORATORY Specimen Anatomical Collection Method Collection Time Receive d Time (Source) Location / / Volume Laterality Blood specimen Venous Draw / 11/30/2019 8:30 PM 2019 8:36 (specimen) Unknown EDT PM EDT Resulting Agency Comment Spec In Lab Rossy Winn MD CHEMISTRY ORDERABLES Performing Organization Address City/[facility]/[place] [address] (ABNORMAL) Troponin (11/30/2019 8:30 PM EDT) athologist Signature Troponin-T 5.04 (H) 0.00 - MELINA MONAE 0.00 ng/mL [facility] LABORATORY Comment: The 99th percentile for [...] additional sample may be indicated. Reference: Third [place] Definition of Myocardial Infarction. Journal of the [place] College [employer] 2012;60:1581-98 Specimen Anatomical Collection Method Collection Time Receive d Time (Source) Location / / Volume Laterality Blood specimen Venous Draw / 11/30/2019 8:30 PM 2019 8:36 (specimen) Unknown EDT PM EDT Resulting Agency Comment Spec In Lab Rossy Winn MD CHEMISTRY ORDERABLES Performing Organization Address City/[facility]/ZIP Code Phon e Number MEL[place] [address] Magnesium (11/30/2019 8:30 PM EDT) athologist Signature Magnesium 0.79 0.69 - 1.07 [facility] mmol/L [facility] LABORATORY Specimen Anatomical Collection Method Collection Time Receive d Time (Source) Location / / Volume Laterality Blood specimen 11/30/2019 8:30 PM 020 8:35 (specimen) EDT PM EDT Resulting Agency Comment Spec In Lab Gretchen Yoon MD CHEMISTRY ORDERABLES Performing Organization Address City/State/ZIP Code Phon e Number [address] (ABNORMAL) Basic Metabolic Panel (non-fasting) (11/30/2019 8:30 PM EDT) athologist Signature Glucose Lvl 132 65 - 199 [facility] mg/dL [facility] LABORATORY Comment: Diabetes: >=200 mg/dL plus [...] of body mass or the acutely ill. http://[employer]/[facility] eGFR 93 >=60 mL/min/1.73 m?? [facility] LABORATORY Comment: The eGFR was calculated using the CKD-EP I equation. As with all creatinine based estimates of kidney function, eGFR values calculated with the CKD-EPI equation are not accurate in patients wi th acute kidney failure, extremes of body mass or the acutely ill. http://[employer]/DHnkf Specimen Anatomical Collection Method Collection Time Receive d Time (Source) Location / / Volume Laterality Blood specimen 11/30/2019 8:30 PM 020 8:35 (specimen) EDT PM EDT Resulting Agency Comment Spec In Lab Gretchen Yoon MD CHEMISTRY ORDERABLES Performing Organization Address [facility] Phon e Number [address] Blood culture (11/30/2019 8:30 PM EDT) Patholo gist Method Time Signature Blood Culture No growth MELINA MONAE at 5 days. [facility] Specimen Anatomical Collection Method Collection Time Receive d Time (Source) Location / / Volume Laterality Blood specimen 11/30/2019 8:30 PM 020 9:40 (specimen) EDT PM EDT Comment: L HAND Resulting Agency Comment Spec In Lab Gretchen Yoon MD MICROBIOLOGY - BLOOD ORDERAB LES Performing Organization Address City/[facility] [place] [address] Blood culture (11/30/2019 8:30 [...] - BLOOD ORDERAB LES Performing Organization Address City/[facility] [place] [address] XR Chest One View [...] contact e number below. Electronically signed by: Latoya Sims [facility] ([phone]), at 11/30/2019 8:32 PM Gretchen Yoon MD IMG DX ORDERABLES (ABNORMAL) BLOOD GAS 2 ARTERIAL (11/30/2019 8:09 PM EDT) Analysis Performed At Patho logist Time Signature pH Art 7.45 7.35 - [facility] 7.45 [facility] LABORATORY pCO2 Art 27 (L) 35 - 45 [facility] mmHg [facility] LABORATORY pO2 Art 68 (L) 85 - 104 [facility] mmHg [facility] LABORAT[facility] HCO3 Art 18.2 (L) 20.0 - [facility] 26.0 [facility] mmol/L [facility] LABORATORY BE Art -5.9 (L) -3.0 - 3.0 [facility] mmol/L [facility] LABORATORY Hgb Blood Gas 12.4 (L) 13.7 - [facility] 16.5 gm/dL [facility] LABORATORY O2HB Art 93.1 (L) 94.0 - [facility] 97.0 % [facility] LABORATORY COHB Art 0.8 % [facility] Comment: Nonsmokers: 0.5-1.5% COHB Smokers: Variable, but usually less than 10% Toxic: 20-30% COHB Lethal: Greater than 60% COHB METHB Art 0.4 <=1.5 % [facility] LABORATORY Na Whole Blood 133 (L) 135 - 145 mmol/L [facility] LABORATORY K Whole Blood 3.6 [...] Whole Bld 121 65 - 199 mg/dL [facility] LABORATORY Comment: Diabetes: >=200 mg/dL plus symp toms. Lactate WB 1.2 0.5 - 2.2 mmol/L [facility] LABORATORY Flow Art 5.0 LPM [facility] LABORATORY Specimen Anatomical Collection Method Collection Time Receive d Time (Source) Location / / Volume Laterality Blood specimen 11/30/2019 8:09 PM 020 8:09 (specimen) EDT PM EDT Gretchen Yoon MD CHEMISTRY ORDERABLES Performing Organization Address City/State/[place] [address] Angiogram [place] of [place] (11/30/2019 4:36 PM EDT) Anatomical [...] Electronically signed by: Angel Luis Barboza MD, [facility] ([phone]), at 11/30/2019 5:04 PM Narrative 11/30/2019 5:04 PM EDT EXAMINATION: CT HEAD WO CONTRAST (GENERIC), CT ANGIOGRAM MODOC OF BRAY CLINICAL HISTORY: Headache, intracranial hemorrhage [...] HEAD WO CONTRAST (GENERI C), CT ANGIOGRAM [place] OF [place] CLINICAL HISTORY: Headache, intracranial hemorrhage [...] CT HEAD WO CONTRAST (GENERIC), CT ANGIOGRAM [place] OF [place]RAY CLINICAL HISTORY: Headache, intracranial hemorrhage [...] HEAD WO CONTRAST (GENERI C), CT ANGIOGRAM [place] OF [place] CLINICAL HISTORY: Headache, intracranial hemorrhage [...] Electronically signed by: Angel Luis Barboza MD, [facility] ([phone]), at 11/30/2019 5:04 PM Gretchen Yoon MD [...] 453 ms MUSE SYSTEM (Bezet) Calculated P Arlee 52 degrees MUSE SYSTEM Calculated R Arlee 5 degrees MUSE SYSTEM Calculated T Arlee -60 degrees MUSE SYSTEM INTERPRETATION Sinus rhythm [...] Corcoran ? (Age): 1945(74y) Med Rec#: ? [id number] ?Sex: ?M ? [facility] ? [facility] ?Ht / Wt: ??178(cm)/64(kg) Pt. Loc: ?CCU ? BSA: ?1.8 Study Date: ?? 11/30/2019 ?Pt. Type: Inpatient Tape: ? Referring: VANGIEJ Reading: Tello Mejia ([id number]) Head Of Sales And Marketing: Friend Lolita Diagnosis: *ST elevation (STEMI) myocardial infarc [...] Vmax ?0.58 ? m/sec ? MV deceleration [id number] ? m sec ? MV A-wave Vmax [...] ? Mid-Inferior ?Akinetic ? Mid-Inferoseptal ?Normal ? [place]-Septal ? Normal ? [place]-Anterior ? Normal ? [place]-Lateral ?Normal ? [place]-Inferior ? Hypokinetic ? [place]-Tip ?Normal ? This report has been electronically sign ed by: _ Tello Mejia MD ? 11/30/2019 12: 45:27 [facility] Procedure Note Tello Mejia MD - 11/30/2019Formatti ng of this note might be different from the original. Procedure: Transthoracic Echocardiogram Patient: RITA ACOSTA(Age): [birth year](74y) Med Rec#: [id number] Sex: M [facility] Loc: [facility] Ht / Wt: 178(cm)/64(kg) Pt. Loc: CCU BSA: 1.8 Study Date: 11/30/2019 Pt. Type: Inpatie nt Tape: Referring: GILMER Reading: Tello Mejia ([id number]) Head Of Sales And Marketing: Eve Lolita Diagnosis: *ST elevation (STEMI) myocardial [...] MV E-wave Vmax 0.58 m/sec MV deceleration [id number] msec MV A-wave Vmax 0.74 m/sec MV [...] Hypokinetic Mid-Posterolateral Hypokinetic Mid-Inferior Akinetic Mid-Inferoseptal Normal Walnut-Septal Normal Wal[place]-Anterior Normal Wal[place]-Lateral Normal Wal[place]-Inferior Hypokinetic Wal[place]-Tip Normal This report has been electronically sign ed by: _ Tello Mejia MD 11/30/2019 12:45:27 Images reviewed and interpretation [facility] Gretchen Yoon MD [...] questions regarding this report, please contact [facility] number below. ? Electronically signed by: Angel Luis Barboza MD, [facility] ([phone]), at 11/30/2019 12:04 PM Narrative 11/30/2019 12:04 [...] athologist Signature Magnesium 0.88 0.69 - 1.07 [facility] mmol/L [facility] LABORATORY Specimen Anatomical Collection Method Collection Time Receive d Time (Source) Location / / Volume Laterality Blood specimen Venous Draw / 11/30/2019 8:30 AM 2019 8:37 (specimen) Unknown EDT AM EDT Resulting Agency Comment Spec In Lab Rossy Winn MD CHEMISTRY ORDERABLES Performing Organization Address City/State/[place] [address] (ABNORMAL) CK (11/30/2019 8:30 AM EDT) athologist Signature CK, Total 1,645 (H) 0 - 200 [facility] unit/[facility] LABORATORY Specimen Anatomical Collection Method Collection Time Receive d Time (Source) Location / / Volume Laterality Blood specimen 11/30/2019 8:30 AM 020 8:32 (specimen) EDT AM EDT Resulting Agency Comment Spec In Lab Gretchen Yoon MD CHEMISTRY ORDERABLES Performing Organization Address City/[facility]/ZIP [place] [address] (ABNORMAL) Troponin (11/30/2019 8:30 AM EDT) athologist Signature Troponin-T 8.04 (H) 0.00 - MELINA MONAE 0.00 ng/mL [facility] Comment: result rechecked-rancho The 99th [...] additional sample may be indicated. Reference: Third [place] Definition of Myocardial Infarction. Journal of the [place] College [employer]iology 2012;60:1581-98 Specimen Anatomical Collection Method Collection Time Receive d Time (Source) Location / / Volume Laterality Blood specimen 11/30/2019 8:30 AM 020 8:32 (specimen) EDT AM EDT Resulting Agency Comment Spec In Lab Gretchen Yoon MD CHEMISTRY ORDERABLES Performing Organization Address City/State/ZIP Code Phon [place] [address] EKG 12 Lead (11/30/2019 7:57 AM EDT) Component Value Ref Range Test Analysis Performed Pathologis t Method Time At Signature Ventricular rate 64 BPM MUSE SYSTEM Atrial Rate 64 BPM MUSE SYSTEM P-R Interval 132 ms MUSE SYSTEM QRS Duration 78 ms MUSE SYSTEM Q-T Interval 420 ms MUSE SYSTEM QTC Calculated 433 ms MUSE SYSTEM (Bezet) Calculated P Arlee 28 degrees MUSE SYSTEM Calculated R Arlee 7 degrees MUSE SYSTEM Calculated T Arlee -33 degrees MUSE SYSTEM INTERPRETATION Sinus rhythm [...] Signature Glucose 147 (H) 65 - 99 [facility] Fasting mg/dL [facility] Comment: ?Fasting* Glucose Interpretive C [...] of Diabetes Mellitus, Position Statement from the [place] [employer]. ??Diabete s Care, Volume 33, [...] of body mass or the acutely ill. http://[employer] eGFR 98 >=60 mL/min/1.73 m?? [facility] LABORATORY Comment: The eGFR was calculated using the CKD-EP I equation. As with all creatinine based estimates of kidney function, eGFR values calculated with the CKD-EPI equation are not accurate in patients wi th acute kidney failure, extremes of body mass or the acutely ill. http://[employer]/[facility] Specimen Anatomical Collection Method Collection Time Receive d Time (Source) Location / / Volume Laterality Blood specimen 11/30/2019 2:15 AM 020 2:29 (specimen) EDT AM EDT Resulting Agency Comment Spec In Lab Gretchen Yoon MD CHEMISTRY ORDERABLES Performing Organization Address City/State/[place] [address] (ABNORMAL) Hemogram (11/30/2019 2:15 AM EDT) Analysis Performed At Patho logist Time Signature WBC 11.2 (H) 4.0 - 9.5 [facility] x10(3)/[facility] LABORATORY RBC 3.83 (L) 4.58 - [facility] 5.54 [facility] x10(6)/[facility] LABORATORY Hemoglobin 11.4 (L) 13.7 - [facility] 16.5 gm/dL [facility] Hematocrit 35.2 (L) 40.5 - MELINA MARSHJAN 48.5 % [facility]AT[facility] MCV 91.9 82.9 - [facility] 93.1 [facility] LABORATORY MCH 29.8 27.5 - MELINA MARSHJAN 32.1 pg [facility] MCHC 32.4 32.0 - MELINA MARSHJAN 35.7 gm/dL [facility] Platelets 122 (L) 145 - 357 [facility] x10(3)/[facility] LABORATORY RDWSD 49.8 (H) 36.0 - MELINA MARSHJAN 45.0 [facility] LABORATORY RDWCV 14.8 (H) 11.4 - [facility] 13.8 % [facility] LABORATORY MPV 12.1 7.6 - 12.9 [facility] LABORATORY nRBC % Auto 0.0 % [facility] LABORATORY nRBC Abs Auto 0.000 0.000 [facility] x[facility](3)/[facility] LABORATORY Specimen Anatomical Collection Method Collection Time Receive d Time (Source) Location / / Volume Laterality Blood specimen 11/30/2019 2:15 AM 020 2:29 (specimen) EDT AM EDT Resulting Agency Comment Spec In Lab Gretchen Yoon MD HEMATOLOGY ORDERABLES Performing Organization Address City/[facility]/ZIP Code Phon e Number [address] (ABNORMAL) CK (11/30/2019 2:15 AM EDT) athologist [facility] CK, Total 1,969 (H) 0 - 200 [facility] unit/L [facility] LABORATORY Specimen Anatomical Collection Method Collection Time Receive d Time (Source) Location / / Volume Laterality Blood specimen 11/30/2019 2:15 AM 020 2:29 (specimen) EDT AM EDT Resulting Agency Comment Spec In Lab Gretchen Yoon MD CHEMISTRY ORDERABLES Performing Organization Address City/[facility]/ZIP [facility] Phon e Number [address] (ABNORMAL) Troponin (11/30/2019 2:15 AM EDT) athologist Signature Troponin-T 11.73 (H) 0.00 - MELINA MONAE 0.00 ng/mL [facility] Comment: result rechecked-slw The 99th [...] additional sample may be indicated. Reference: Third [place] Definition of Myocardial Infarction. Journal of the [place] College [employer]iology 2012;60:1581-98 result rechecked- The [...] additional sample may be indicated. Reference: Third [place] Definition of Myocardial Infarction. Journal of the [place] College [employer]iology 2012;60:1581-98 Corrected from 11.73 ng/ml [HI] on 11/29 3:11:51 EDT by Debi Hawley Specimen Anatomical Collection Method Collection Time Receive d Time (Source) Location / / Volume Laterality Blood specimen 11/30/2019 2:15 AM 020 2:29 (specimen) EDT AM EDT Resulting Agency Comment Spec In Lab Gretchen Yoon MD CHEMISTRY ORDERABLES Performing Organization Address City/[facility]/ZIP Code Phon e Number [address] LDL Cholesterol, Direct (11/30/2019 2:15 AM EDT) P athologist Signature LDL Chol 156 mg/dL [facility] LABORATORY Comment: Lowest Risk: <100 mg/dL Lower Risk: 100-129 mg/dL Borderline High Risk: 130-159 mg/dL High Risk: 160-189 mg/dL Very High Risk: >qe=662 mg/dL Specimen Anatomical Collection Method Collection Time Receive d Time (Source) Location / / Volume Laterality Blood specimen 11/30/2019 2:15 AM 020 2:29 (specimen) EDT AM EDT Resulting Agency Comment Spec In Lab Gretchen Yoon MD CHEMISTRY ORDERABLES Performing Organization Address City/[facility]/ZIP [facility] [place] [address] (ABNORMAL) Hemoglobin A1c (11/30/2019 [...] [id number] Est Avg Gluc See note mg/dL KERBS [...] hemoglobinopathies. Additional resources are available on [facility] ADA website. Kiko CARBAJAL, Jenn J, Silas R, et al. ??Tr anslating the A1C assay into estimated average glucose values. ??Diabetes Care 2008:31(8):3009-2373. Specimen Anatomical Collection Method Collection Time Receive d Time (Source) Location / / Volume Laterality Blood specimen 11/30/2019 2:15 AM 020 2:29 (specimen) EDT AM EDT Resulting Agency Comment Spec In Lab Gretchen Yoon MD CHEMISTRY ORDERABLES Performing Organization Address City/State/[place] [address] Lipid Panel (Reflex Direct LDL) (11/30/2019 2:15 AM EDT) athologist Signature Chol, Total 195 mg/dL [facility] LABORATORY Comment: Lower Risk: <200 mg/dL Average Risk: 200-239 mg/dL Higher Risk: >hh=029 mg/dL Triglycerides 93 mg/dL [facility] LABORATORY Comment: Average Risk/Lower Risk: <150 mg/dL Borderline High Risk: 150-199 mg/dL High Risk: 200-499 mg/dL Very High Risk: >fs=619 mg/dL HDL 32 mg/dL [facility] LABORATORY Comment: Males: ?? Higher Risk: <40 mg/dL Females: ?? HIgher Risk: <50 mg/dL LDL Cholesterol 144 mg/dL [facility] LABORATORY Comment: Lowest Risk: <100 mg/dL Lower Risk: 100-129 mg/dL Borderline High Risk: 130-159 mg/dL High Risk: 160-189 mg/dL Very High Risk: >yt=692 mg/dL Chol/HDL Ratio 6.1 ratio [facility] LABORATORY Lipid Interpretation See Note [facility] LABORATORY Comment: Lipid management should be guided by a p atient? s ASCVD risk, goals and preferences. ACC/AHA Guidelines recommend high intens ity statin if clinical ASCVD or LDL greater than or equal to 190 mg/dL. http://[employer] Diabetes.com/ADV-WTS-Wulowqdly Adults aged 40-75 with LDL 70-189 mg/dL should have their 10 year ASCVD risk estimated with the ACC/AHA ASCVD risk es timator http://tools.acc.org/XAGQW-Kqre-Ehdsnryx r/ Statin should be discussed if risk [...] Organization Address City/State/ZIP Code Phon e Number [address] (ABNORMAL) CK (11/29/2019 6:35 PM EDT) athologist Signature CK, Total 2,780 (H) 0 - 200 [facility] unit/L [facility] Specimen Anatomical Collection Method Collection Time Receive d Time (Source) Location / / Volume Laterality Blood specimen 11/29/2019 6:35 PM 020 6:53 (specimen) EDT PM EDT Resulting Agency Comment Spec In Lab Gretchen Yoon MD CHEMISTRY ORDERABLES Performing Organization Address City/[facility]/[place]IP [place] [address] (ABNORMAL) Troponin (11/29/2019 6:35 PM EDT) athologist [facility] Troponin-T 17.60 (H) 0.00 - [facility] 0.00 ng/mL [facility] Comment: result rechecked-az The 99th [...] additional sample may be indicated. Reference: Third [place] Definition of Myocardial Infarction. Journal of the [place] [employer] 2012;60:1581-98 Specimen Anatomical Collection Method Collection Time Receive d Time (Source) Location / / Volume Laterality Blood specimen 11/29/2019 6:35 PM 020 6:53 (specimen) EDT PM EDT Resulting Agency Comment Spec In Lab Gretchen Yoon MD CHEMISTRY ORDERABLES Performing Organization Address City/[facility]/ZIP Code Phon e Number [place] [phone]OS[address] EKG 12 Lead (11/29/2019 3:58 PM EDT) [facility] gist Method Time Signature Ventricular rate 73 BPM MUSE SYSTEM Atrial Rate 73 BPM MUSE SYSTEM P-R Interval 152 ms MUSE SYSTEM QRS Duration 84 ms MUSE SYSTEM Q-T Interval 404 ms MUSE SYSTEM QTC Calculated 445 ms MUSE SYSTEM (Bezet) Calculated P Arlee 50 degrees MUSE SYSTEM Calculated R Arlee -4 degrees MUSE SYSTEM Calculated T Arlee 19 degrees MUSE SYSTEM INTERPRETATION Sinus rhythm [...] Electronically signed by: Devin Solis [facility] ([phone]), at 11/29/2019 5:06 PM --------ORIGINAL REPORT -------- EXAMINATION: XR CHEST ONE VIEW CLINICAL HISTORY: stemi (as entered by o clear view behavioral health provider in the order [...] lung apex is excluded from the imaged [id number]. IMPRESSION: 1. ??New right internal jugular pulmonar [...] Electronically signed by: Devin Solis [facility] ([phone]), at 11/29/2019 4:36 PM Impressions 11/29/2019 4:36 [...] Electronically signed by: Devin Solis [facility] ([phone]), at 11/29/2019 4:36 PM Narrative 11/29/2019 4:36 [...] lung apex is excluded from the imaged [id number]. Procedure Note Estefani Harris MD - 11/29/2019Formattin [...] lung apex is excluded from the imaged [id number]. IMPRESSION 1. New right internal jugular pulmonary [...] Electronically signed by: Devin Solis [facility] ([phone]), at 11/29/2019 4:36 PM Juventino Concepcion MD IMG DX ORDERABLES (ABNORMAL) Differential, Automated (11/29/2019 2:32 PM EDT) [facility] Method Time Signature Neutrophils % 83.8 % [facility] Neutr Abs (ANC) 12.12 (H) 1.70 - [facility] 6.10 [facility] x10(3)/[facility] LABORATORY Lymphocytes % 9.1 % [facility] Lymphocytes Abs 1.3 0.9 - 3.2 [facility] x10(3)/[facility] LABORATORY Monocytes % 6.2 % [facility] Monocyte Abs 0.9 0.3 - 0.9 [facility] x10(3)/[facility] LABORATORY Eosinophils % 0.0 % [facility] Eosinophils Abs 0.0 0.0 - 0.4 [facility] x10(3)/[facility] LABORATORY Basophils % 0.3 % [facility] Basophils Abs 0.0 0.0 - 0.1 [facility] x10(3)/[facility] LABORATORY Immature Gran % 0.60 % WHITE [...] Organization Address City/State/ZIP Code Phon e Number [place] [phone]OS[address]ORY [address] (ABNORMAL) Hemogram (11/29/2019 2:32 PM EDT) Analysis Performed At Patho logist Time Signature WBC 14.5 (H) 4.0 - 9.5 [facility] x10(3)/[facility] LABORATORY RBC 4.53 (L) 4.58 - [facility] JAN 5.54 [facility] x10(6)/[facility] LABORATORY Hemoglobin 13.1 (L) 13.7 - [facility] 16.5 gm/dL [facility] Hematocrit 40.8 40.5 - [facility] 48.5 % [facility] MCV 90.1 82.9 - [facility] 93.1 [facility] LABORATORY MCH 28.9 27.5 - [facility] J[facility] 32.1 pg [facility] MCHC 32.1 32.0 - [facility] 35.7 gm/dL [facility] Platelets 184 145 - 357 [facility] x10(3)/[facility] LABORATORY RDWSD 47.8 (H) 36.0 - [facility] JAN 45.0 [facility] LABORATORY RDWCV 14.5 (H) 11.4 - [facility] JAN 13.8 % [facility] MPV 11.9 7.6 - 12.9 [facility] LABORATORY nRBC % Auto 0.0 % [facility] nRBC Abs Auto 0.000 0.000 - [place] [place] 0.000 [facility] x10(3)/[facility] LABORATORY Specimen Anatomical Collection Method Collection Time Receive d Time (Source) Location / / Volume Laterality Blood specimen 11/29/2019 2:32 PM 020 2:55 (specimen) EDT PM EDT Resulting Agency Comment Spec In Lab Darrell Glasgow MD HEMATOLOGY ORDERABLES Performing Organization Address City/State/ZIP Code Phon e Number [address] (ABNORMAL) CK (11/29/2019 2:32 PM EDT) athologist Signature CK, Total 3,282 (H) 0 - 200 [facility] unit/L [facility] Specimen Anatomical Collection Method Collection Time Receive d Time (Source) Location / / Volume Laterality Blood specimen 11/29/2019 2:32 PM 020 2:32 (specimen) EDT PM EDT Resulting Agency Comment Spec In Lab Gretchen Yoon MD CHEMISTRY ORDERABLES Performing Organization Address City/[facility]/ZIP Code Phon e Number [address] (ABNORMAL) Troponin (11/29/2019 2:32 PM EDT) athologist Signature Troponin-T 20.33 (H) 0.00 - [facility] [place] 0.00 ng/mL [facility] Comment: The 99th percentile for [...] additional sample may be indicated. Reference: Third [place] Definition of Myocardial Infarction. Journal of the [place] College of [employer]iology 2012;60:1581-98 Specimen Anatomical Collection Method Collection Time Receive d Time (Source) Location / / Volume Laterality Blood specimen 11/29/2019 2:32 PM 020 2:32 (specimen) EDT PM EDT Resulting Agency Comment Spec In Lab Gretchen Yoon MD CHEMISTRY ORDERABLES Performing Organization Address [facility] [place] [address] (ABNORMAL) APTT (11/29/2019 2:32 PM EDT) P athologist Signature PTT 114 25 - 37 [facility] (Critical) [facility]ORY Comment: Critical Result called by [...] Yoon MD HEMATOLOGY ORDERABLES Performing Organization Address City/[facility]/[place] [address] (ABNORMAL) Prothrombin Time (11/29/2019 2:32 PM EDT) P athologist Signature PT 13.5 (H) 9.4 - 12.5 [facility] LABORATORY INR 1.2 [facility] [place] Organization Address City/State/[place] [address] (ABNORMAL) Hepatic Function Panel (11/29/2019 2:32 PM EDT) P athologist Signature Total Protein 6.3 6.1 - 8.0 [facility] JAN gm/dL [facility] Albumin 3.6 3.2 - 5.2 [facility] gm/dL [facility] AST 257 (H) 0 - 39 [facility] unit/L [facility] ALT 50 0 - 55 [facility] unit/L [facility] Alk Phos 84 40 - 130 [facility] unit/L [facility] Total 0.3 0.2 - 1.3 [facility] Bilirubin mg/dL [facility] Bili, Direct 0.1 0.0 - 0.3 [facility] JAN mg/dL [facility] Specimen Anatomical Collection Method Collection Time Receive d Time (Source) Location / / Volume Laterality Blood specimen 11/29/2019 2:32 PM 020 2:32 (specimen) EDT PM EDT Resulting Agency Comment Spec In Lab Gretchen Yoon MD CHEMISTRY ORDERABLES Performing Organization Address City/[facility]/ZIP [place] [address] (ABNORMAL) pro-Brain Natriuretic Peptide [...] Yoon MD CHEMISTRY ORDERABLES Performing Organization Address City/[facility]/ZIP Code Phon e Number [address] Magnesium (11/29/2019 2:32 PM EDT) athologist Signature Magnesium 0.76 0.69 - 1.07 [facility] mmol/L [facility] Specimen Anatomical Collection Method Collection Time Receive d Time (Source) Location / / Volume Laterality Blood specimen 11/29/2019 2:32 PM 020 2:32 (specimen) EDT PM EDT Resulting Agency Comment Spec In Lab Gretchen Yoon MD CHEMISTRY ORDERABLES Performing Organization Address City/[facility] [place] [address] (ABNORMAL) Basic Metabolic Panel (non-fasting) (11/29/2019 2:32 PM EDT) athologist Signature Glucose Lvl 149 65 - 199 [facility] mg/dL [facility] Comment: Diabetes: >=200 mg/dL plus [...] of body mass or the acutely ill. http://[employer]/[facility] eGFR 93 >=60 mL/min/1.73 m?? [facility] Comment: The eGFR was calculated using the CKD-EP I equation. As with all creatinine based estimates of kidney function, eGFR values calculated with the CKD-EPI equation are not accurate in patients wi th acute kidney failure, extremes of body mass or the acutely ill. http://[employer]/[facility] Specimen Anatomical Collection Method Collection Time Receive d Time (Source) Location / / Volume Laterality Blood specimen 11/29/2019 2:32 PM 020 2:32 (specimen) EDT PM EDT Resulting Agency Comment Spec In Lab Gretchen Yoon MD CHEMISTRY ORDERABLES Performing Organization Address City/State/[place] [address] EKG 12 Lead (11/29/2019 11:38 AM EDT) [facility] gist Method Time Signature Ventricular rate 60 BPM MUSE SYSTEM Atrial Rate 60 BPM MUSE SYSTEM P-R Interval 140 ms MUSE SYSTEM QRS Duration 86 ms MUSE SYSTEM Q-T Interval 474 ms MUSE SYSTEM QTC Calculated 474 ms MUSE SYSTEM (Bezet) Calculated P Arlee 48 degrees MUSE SYSTEM Calculated R Arlee 14 degrees MUSE SYSTEM Calculated T Arlee 58 degrees MUSE SYSTEM INTERPRETATION Normal sinus rhythm MUSE SYSTEM Possible Inferior infarct (cited on or before 29-NOV-2019) Abnormal ECG When compared with ECG of 29-NOV-2019 09:01, Sinus rhythm has replaced Junctional rhythm Serial changes of evolving Inferior infarct Present Confirmed by MD Roberto, Tello Crowell ([id number]) on 11/29/2019 1:38:0 6 PM Specimen Anatomical [...] Laterality Volume Narrative 11/30/2019 1:09 PM EDT ?[facility] ? Cardiac Cathete rization/Intervention Report ? Patient Name: Angel Luis Salinas H. ? Procedure Date: 11/29/2019 ? A #: [id number] ? Primary Physician: Gretchen Yoon ? Case #: [id number] ? File Name: [id number] ? Catheterization Order Number: [id number] ? [facility] ? Final Report [place], [place] ? Patient Name: ? Angel Luis Salinas ? ID#: ?[id number] ? : ?1945 ? Procedure Date: ? [...] procedure was Emergent. The indication for ?the label sewer visit is ACS less than or equal to 24 hrs. Chest pain ?symptom assessment was: Typical Angina. ? Technique: ?A 6Fr sheath was inserted in e right radial artery utilizing the ?Seldinger [...] dose administered prior to arrival in the label sewer. ?Recommended anti-platelet/anti- thrombotic regimen: ?Continue aspirin 81 mg daily fo r indefinitely. ?Continue clopidogrel 75 mg marco a y for 12 months then stop. ?These recommendations are made at the time of the intervention. Patient ?and provider preferences or a c hanging clinical situation may require ?modification of this regimen. C [facility] Interventional Cardiology for ?questions. ? Conclusions: ?* [...] note might be different from the original. [facility] Cardiac Catheterization/Intervention Re port Patient Name: Angel Luis Salinas Procedure Date: 11/29/2019 A #: [id number] Primary Physician: Gretchen Yoon Case #: [id number] File Name: [id number] Catheterization Order Number: [id number] [facility] Final Report [place], [place] Patient Name: Angel Luis Salinas ID#: [id number] : 1945 Procedure Date: November 29, [...] was designated as ASA Class IV. The [facility] clinical frailty scale is 4: Vulnerable. Diagnostic Tests: Electrocardiography: EKG was assessed by ECG. EKG was Abnorm al. EKG showed ST Deviation >= 0.5 mm. Medications Prior to Procedure: Aspirin. Indications for Diagnostic Cath: The priority of the diagnostic procedur e was Emergent. The indication for the label sewer visit is ACS less than or equal [...] administered prior t o arrival in the label sewer. Recommended anti-platelet/anti-thrombot ic regimen: Continue aspirin 81 mg daily for indefi nitely. Continue clopidogrel 75 mg daily for 12 months then stop. These recommendations are made at the t loyda of the intervention. Patient and provider preferences or a changing clinical situation may require modification of this regimen. Consult D [facility] Interventional Cardiology for questions. Conclusions: [...] Signature POC pH 7.33 (L) 7.35 - [facility] 7.45 [facility] POC PCO2 33 (L) 35 - 45 [facility] LABORATORY POC PO2 56 (L) 85 - 104 [facility] LABORATORY POC Base Excess -8.0 (L) -3.0 - 3.0 [facility] K mmol/L [facility] POC HCO3 17.4 (L) 20.0 - [facility] 26.0 [facility] POC Sodium 137 135 - 145 [facility] mmol/L [facility] POC Potassium 3.6 3.5 - 5.0 [facility] mmol/L [facility] POC Ionized Ca 1.15 1.15 - [facility] 1.33 [facility] POC Hematocrit 37.0 (L) 40.0 - [facility] 51.0 % [facility] POC Calc Hgb 12.6 (L) 13.7 - [facility] 17.5 gm/dL [facility] Comment: The calculation of hemoglobin f rom hematocrit assumes a normal MCHC. POC Bgas Loc CC LAB [facility] Specimen Anatomical Collection Method Collection Time Receive d Time (Source) Location / / Volume Laterality Blood specimen 11/29/2019 9:17 AM 020 7:35 (specimen) EDT AM EDT Gretchen Yoon MD CHEMISTRY ORDERABLES Performing Organization Address City/State/[place] [address] EKG 12 Lead (11/29/2019 9:01 AM EDT) Component Value Ref Range Test Analysis Performed Pathologis t Method Time At Signature Ventricular rate 80 BPM MUSE SYSTEM Atrial Rate 79 BPM MUSE SYSTEM QRS Duration 94 ms MUSE SYSTEM Q-T Interval 436 ms MUSE SYSTEM QTC Calculated 502 ms MUSE SYSTEM (Bezet) Calculated R Arlee 54 degrees MUSE SYSTEM Calculated T Arlee 80 degrees MUSE SYSTEM INTERPRETATION Normal sinus [...] type, unspecified whether acute cor pulmonale present Acute ST elevation myocardial infarction (STEMI) of inferior wall Hyperlipidemia Other and unspecified hyperlipidemia Tobacco abuse Tobacco use disorder Claudication from peripheral vascular di sease, left Peripheral vascular disease, unspecified Intracranial hemorrhage Unspecified intracranial hemorrhage Acute systolic CHF (congestive heart reid lure), [...] to 33.3 mL/hr), Intravenous, CONTINUOUS, Starting on Sun12/07/19 at 1315, Until Sun12/08/19 at 1203, 1mg/min [...] 150 mg, Intravenous, ONCE, 1 dose, On 12/07/19 at 1315, Warning Vesicant/Irritant Medication , [...] CONTINUOUS, Starting on 11/30/19 at 0930, Until 12/02/19 at 0924, Titrate to keep cardiac index [...] on 12/06/19 at 0926, Until Sun12/08/19 at 09, Per Protocol, START ADJUSTMENT SCHEDULE 6 HOURS [...] CONTINUOUS, Starting on 12/06/19 at 0945, Until Sun12/08/19 at 09, Begin infusion at 950 units per hr [...] mL/hr 250 mL/hr, Intravenous, CONTINUOUS, Starting on Mather 12/07/19 at 0145, Until Mather 12/07/19 at 0239 levoFLOXacin (LEVAQUIN) 750 mg in New Bag 11/30/2019 11:03 PM EDT 750 mg 100 mL/hr dextrose 5% 150 mL 750 mg, Intravenous, at 100 mL/hr, EVERY 24 HOURS, First dose on Mather 11/30/19 at 2300, Until Discontinued, Routine, Indication [...] SCHEDULED, First dose (after last modification) on Tu12/02/19 at 1015, Until Discontinued, Hold for HR [...] TIMES DAILY, 6 doses, First dose on Lisandra 12/04/19 at [...] CONTINUOUS, Starting on 11/29/19 at 1445, Until Tu12/02/19 at 0919, Titrate to keep MAP greater [...] on 11/30/19 at 2017, Until Sun12/08/19 at 181, [...] ONCE, 1 dose, 12/06/19 at 0515, Ad chemical process engineer 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
Administer for serum potassium (mMol/L) of 3.9 - 4 See instructions for Potassium Protocol in online policies.
Routine Or potassium chloride ER (K-Dur/Klor-Con) tablet 40 mEqJump to med 40 mEq, Oral, EVERY 4 HOURS PRN, Startin g 11/30/19 at 2016, Until Sun12/08/19 at 1811, hypokalemia
Administer for serum potassium (mMol/L) of 3.6 - 3.8 See instructions for Potassium Protocol in online policies.
Routine documented in this encounter Care Teams Dietetic Aide Relationship Specialty Start Date End Date France Lam MD PCP - General 05/02/13 02/04/20 [address] [place] [address] documented as of this encounter
--- OUTSIDE RECORDS SUMMARY | 2022-05-16 13:55 | XMS_ITS | Encounter Summary ---
:1945 Author Organization [facility] Address [address] [place] [address] Care Team Providers Name Role Phone France Lam MD Primary Care Provider Reason for Visit Reason Comments Claudication Encounter Details Date Type Department Care Team Description 05/13/2013 Office Visit Vascular Surgery at David Sim from [facility] [place] MD Bobby peripheral vascular [facility] dis ease, left ([address] Drive [address] [place]) [place], [place] VASCULAR SURGERY [address] [place] [address] [phone] Social History Tobacco Use Types Packs/Day Years [...] Endocrinology Alan Terrell MD [facility] [address] [place], [place] [address] (Wo rk) documented as of this encounter Visit Diagnoses Diagnosis Claudication from peripheral vascular di sease, left - Primary Peripheral vascular disease, unspecified documented in this encounter Care Teams Gravity Prospecting Operator Helper Relationship Specialty Start Date End Date France Lam MD PCP - General 05/02/13 02/04/20 [address] [place] [address] documented as of this encounter
--- OUTSIDE RECORDS SUMMARY | 2022-05-16 13:55 | XMS_ITS | Encounter Summary ---
:1945 [place] [address] Care Team Providers Name Role Phone France Lam MD Primary Care Provider Encounter Details Date Type Department Care Team Description 11/29/2019 Telephone Cardiovascular [facility] Silvio piedra MD [facility] Devin cohn [place] [address] [place] [address] [phone] (Wo rk) Social History Tobacco Use Types [...] 50s EKG: Inferior STEMI Silvio Real MD Sidehand PGY-4 11/29/2019 documented in this encounter Plan of Treatment Upcoming Encounters Date Type Specialty Care Team Description 06/30/2022 Office Visit Endocrinology EchtAlan MD [facility] ENDOCRINOLOGY [place], [place] [address] (Wo rk) documented as of this encounter Visit Diagnoses Not on filedocumented in this encounter Care Teams Facilities Flight Check Pilot Relationship Specialty Start Date End Date France Lam MD PCP - General 05/02/13 02/04/20 [address] [place] [address] documented as of this encounter
--- OUTSIDE RECORDS SUMMARY | 2022-05-16 13:55 | XMS_ITS | Encounter Summary ---
:1945 Author Organization [facility] [place] [address] Care Team Providers Name Role Phone France Lam MD Primary Care Provider Encounter Details Date Type Department Care Team Description 05/13/2013 Ancillary Vascular Surgery at Clarit[facility] (Primary Appointment [facility] Cesilia Sebastian, [place] Dx) [place] [address] Social History Tobacco Use Types Packs/Day Years Used Date Smoking Tobacco: Every Day Cigarettes 0.5 Cigars Sex Assigned at Date Recorded Not on file documented as of this encounter Plan of Treatment Upcoming Encounters Date Type Specialty Care Team Description 06/30/2022 Office Visit Endocrinology Alan Terrell MD [facility] ER DR ENDOCRINOLOGY [place] [id number] (Wo rk) documented as of this encounter Procedures Procedure Name Priority Date/Time Associated Diagnosis Comme nts IGNACIO, LEGS, MULTIPLE Routine 05/13/2013 8:34 AM Calf pain Re sults for this LEVELS EST procedure are i n the results section. documented in this encounter Results IGNACIO, legs, multiple levels (05/13/2013 8:34 AM EST) Component Value Ref Test Analysis Performed At [facility] Range Method Time Signature VB Text VASCUBASE Report Department: Vascular Surgery Lab Patient: [id number] (ANGEL LUIS [place]) CPT Code: 31694 ICD-9: 440.21 Referring Physician: FRANCE LAM Indication: [...] Posterior Tibial (Ankle) Art derrell ??84 ?0.64 ??Shoshone- Biphasic ?? Interpretation: RIGHT: ??Mild lower extremity [...] limb documented in this encounter Care Teams Pilot Highway Patrol Relationship Specialty Start Date End Date France Lam MD PCP - General 05/02/13 02/04/20 [address] [place] [address] documented as of this encounter
--- OUTSIDE RECORDS SUMMARY | 2022-05-16 13:55 | XMS_ITS | Encounter Summary ---
:1945 Author Organization [facility] [place] [address] Care Team Providers Name Role Phone France Lam MD Primary Care Provider Encounter Details Date Type Department Care Team Description 05/13/2013 Orders Only Vascular Surgery at [facility] Sanchez P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) [facility] (Primary Dx) [place] [address] Social History Tobacco Use Types Packs/Day [...] 06/30/2022 Office Visit Endocrinology Alan Terrell MD [facility] ER DR ENDOCRINOLOGY [place], [place] [address] (Wo rk) documented as of this encounter Visit Diagnoses Diagnosis PVD (peripheral vascular disease) - Prim kayy Peripheral vascular disease, unspecified documented in this encounter Care Teams Fish Housekeeper Relationship Specialty Start Date End Date France Lam MD PCP - General 05/02/13 02/04/20 [address] [place] [address] documented as of this encounter
--- OUTSIDE RECORDS SUMMARY | 2022-05-16 13:55 | XMS_ITS | Encounter Summary ---
:1945 Author Organization [facility] [place] [address] Care Team Providers Name Role Phone France Lam MD Primary Care Provider Encounter Details Date Type Department Care Team Description 11/29/2019 External Results [place] [id number] Social History Tobacco Use Types Packs/Day Years Used Date Smoking Tobacco: Every Day Cigarettes 0.5 Cigars Sex Assigned at Date Recorded Not on file documented as of this encounter Plan of Treatment Upcoming Encounters Date Type Specialty Care Team Description 06/30/2022 Office Visit Endocrinology Alan Terrell MD [facility] ENDOCRINOLOGY [place], [place] [address] (Wo rk) documented as of [...] filedocumented in this encounter Care Teams Solar Phot[employer]oltaic Systems Engineer Relationship Specialty Start Date End Date France Lam MD PCP - General 05/02/13 02/04/20 [address] [place] [address] documented as of this encounter
--- OUTSIDE RECORDS SUMMARY | 2022-05-16 13:55 | XMS_ITS | Encounter Summary ---
:1945 [place] [address] Care Team Providers Name Role Phone France Lam MD Primary Care Provider Reason for Visit Auth/Cert Specialty Diagnoses / Procedures Referred By Contact Refer red To Contact Diagnoses STEMI (ST elevation myocardial infarction) STEMI Procedures CARDIAC CATHETERIZATION Referral ID Status Reason Start Date Expiration Date Visits Requ ested Visits Authorized [id number] 1 1 Encounter Details Date Type Department Care Team Description 11/29/2019 Surgery Adult Literacy Instructor Gretchen Corral, CARDIAC CATHETERIZATION [facility] [place] [address] [place] [id number] [phone] (Wo rk) Social History Tobacco Use Types [...] Luis Salinas Patient Age: 74 y.o. Language: Dutch Race: White Ethnicity: Not nor Admit date: [...] months on: antiplatelet therapy at discretion of spinning mule operator - Repeat TTE in 3 months to reassess LV function - Repeat BMP in 1-2 weeks given recent start lisinopril - Referred to lipid clinic for consideration of PCSK-9 inhibitor given STEMI with intolerance of statins - Started on amiodarone this admission for recurrent rapid atrial flutter with rates ~170, recommendcontinued assessment of necessity of rhythm control strategy with spinning mule operator - Amiodarone monitoring recommendations as below [...] contact your inpatient physician through the [facility] Manager Membership . Issues after hours and on weekends [...] Compazine. He was transferred directly to [facility] via [facility] for further management. Patient had an emergent PCI with 3 MACARIO stents placed to his RCA, with mild disease of LCX (report pending) at [facility]. He was found to be persistently hypotensive requiring Levo up to 10mcg/min. He was transferred to CV after the cath procedure. Bedside RHC showed CI 2.12, PAWP 11, PAP 38/15 indicating hypovolemic state. He received 1L bolus of NS with improvement of his blood pressure to 124/61. History of PAD, HLD - had side reactions to statins - so taking niacin and red rye grain. Chronic active smoker with more than 65 pack years. Family history of AL in father and two uncles. He's takingbaby [...] as described above. On arrival at [facility] he was taken [...] priority for the procedure was Emergent. [facility] the [facility] [...] by: Angel Luis [facility] ([phone]), at 11/30/2019 5:[address] Angiogram [place] (Exam End: 11/30/2019 4:36 PM) [...] resident's interpretation and agree with the findings, Merair Collins at 12/01/2019 3:53 PM Thank you [...] ??? Penicillins Pt doesn't remember reaction ??? Tcnugzh-Dxi-Kek Reductase Inhibitors Stiff neck, upset stomach, back [...] at another hospital and then at [facility] you had a [...] FOR ONE MONTH AND THEN STOP. Your spinning mule operator may tell you to start this medication again after one year. Clopidogrel (Plavix) 75 mg daily - This medication will help prevent clots from forming in your blood, which will help protect the stent that was placed in your heart vessel. TAKE THIS FOR ONE YEAR ANDTHEN DISCUSS WITH YOUR COPRA PROCESSOR WHETHER TO STOP. Amiodarone 400mg twice daily [...] follow up: Your primary care provider and spinning mule operator will manage your blood thinner (apixaban). You do not need lab monitoring of this medication. Diet: Please consume a healthy diet low in cholesterol Follow up Appointments: 12/10/2019 at 3:10PM with PCP Angel Luis Lott Future Appointments Date Time Provider Department Center 12/23/2019 1:30 PM Alfreda Salas APRN [facility] [id number] 12/26/2019 9:40 AM Merlin Sanchez MD [facility] CARD 4A [facility] 12/30/2019 3:40 PM Gretchen Yoon MD [address] Future Appointments and Orders Future Appointments and Orders Future Appointments Provider Department Dept Phone 12/23/2019 1:30 PM Alfreda Salas APRN Neurosurgery at [facility] Arrive at: Home [phone] Please do not come in for this visit. Your provider will call you at the number you provided. 12/26/2019 9:40 AM Merlin Sanchez MD Cardiology at [facility] Arrive at: Home [phone] Please do not come in for this visit. Your provider will call you at the number you provided. 12/30/2019 3:40 PM Gretchen Yoon MD Cardiology at [facility] Arrive at: Home [phone] Please do not come in for this visit. Your provider will call you at the number you provided. Future Orders Complete By Expires Referral to Cardiac Rehab [[id number] Custom] As directed Process Instructions: If no progress note charted, please enter Clinical details in comments. Scheduling Instructions: Questions: My question or request is: STEMI. Cardiac rehab at [facility] Referral to [facility] [REF43 Custom] As directed Process Instructions: If no progress note charted, please enter Clinical details in comments. Scheduling Instructions: Questions: My question or request is: patient with inferior stemi with history of statin allergy (rash) - please evaluate for psck9 inhibitor. Referral to Home Health - at DISCHARGE [[id number] CPT(R)] As directed Process Instructions: Scheduling Instructions: Comments: DOCUMENTATION FOR VNA SERVICES PATIENT'S LOCATION: Angel Luis Corcoran [address] [address] (home) Boiler Testing Technician's Name: Self In discussion with the attending physician, it is certified that this patient is under his/her care and that MD, or an PICKER MACHINE OPERATOR, RODENT EXTERMINATOR, or PA who is working directly with him/her, had a zlbt-mi-kers encounter that meets the physician hobu-lp-kpwj encounter requirements with this patient on 12/07/2019. [...] for managing ADLs. HOME HEALTH CARE AGENCY: [facility], PHONE: [phone] FAX: [phone] Start of care: 24-48 hours after hospital [...] France Lam MD [address] / [place] [address] All A agencies which cover the area of patient's residence have been reviewed, either verbally or in writing, and patient/family have chosen the home health care agency noted. Questions: Agency name and contact information: [facility] Patient location post discharge: Home What services are requested: Registered Nurse Physical Therapy Occupational Therapy Start date: Responsible MD post discharge contact info: PCP Your PCP: France Lam MD [phone] For questions regarding this document or issues relating to this hospitalization on the Cardiology Service, please contact your inpatient physician through the [facility] Manager Membership . Issues after hours and on weekends will be handled by the Land Law Examiner on-call. Patient Instructions: Neurology Your Diagnosis: Left [...] Care Provider [facility] General Instructions None Future Appointments and Orders Future Appointments and Orders Future Appointments Provider Department Dept Phone 12/23/2019 1:30 PM Alfreda Saals APRN Neurosurgery at [facility] Arrive at: Home [phone] Please do not come in for this visit. Your provider will call you at the number you provided. 12/26/2019 9:40 AM Merlin Sanchez MD Cardiology at [facility] Arrive at: Home [phone] Please do not come in for this visit. Your provider will call you at the number you provided. 12/30/2019 3:40 PM Gretchen Yoon MD Cardiology at [facility] Arrive at: Home [phone] Please do not come in for this visit. Your provider will call you at the number you provided. Future Orders Complete By Expires Referral to Cardiac Rehab [[id number] Custom] As directed Process Instructions: If no progress note charted, please enter Clinical details in comments. Scheduling Instructions: Questions: My question or request is: STEMI. Cardiac rehab at [facility] Referral to [facility] [REF43 Custom] As directed Process Instructions: If no progress note charted, please enter Clinical details in comments. Scheduling Instructions: Questions: My question or request is: patient with inferior stemi with history of statin allergy (rash) - please evaluate for psck9 inhibitor. Referral to Home Health - at DISCHARGE [XNH1077 CPT(R)] As directed Process Instructions: Scheduling Instructions: Comments: DOCUMENTATION FOR VNA SERVICES PATIENT'S LOCATION: [address] [address] (home) Boiler Testing Technician's Name: Self In discussion with the attending physician, it is certified that this patient is under his/her care and that MD, or an PICKER MACHINE OPERATOR, RODENT EXTERMINATOR, or PA who is working directly with him/her, had a thbu-ct-cdyt encounter that meets the physician emxr-by-lcth encounter requirements with this patient on 12/07/2019. [...] for managing ADLs. HOME HEALTH CARE AGENCY: [facility], PHONE: [phone] FAX: [phone] Start of care: 24-48 hours after hospital [...] MD [address] / [place] [address] All A agencies which cover the area of patient's residence have been reviewed, either verbally or in writing, and patient/family have chosen the home health care agency noted. Questions: Agency name and contact information: [facility] Patient location post discharge: Home What services are requested: Registered Nurse Physical Therapy Occupational Therapy Start date: Responsible MD post discharge contact info: PCP Discharge References/Attachments Atrial Fibrillation (Dutch) Cardiac Rehabilitation (Dutch) Heart Failure (Dutch) Heart Failure: Limiting Sodium (Dutch) Hemorrhagic Stroke: General Info (Dutch) Smoking: Stopping (Dutch) Stroke Rehabilitation: General Info (Dutch) Pulmonary Embolism (Dutch) Riki Stevens MD PGY-3, Internal Medicine Cardiology S2, #[id number] Associated attestation - Shaka Lagos, Paris Lockett MD - 12/09/2019 4:44 PM EDT Cardiology Attending Discharge Addendum I was the assigned attending spinning mule operator for this clinical encounter. For the [...] complications include novel onset, paroxysmal atrial fibrillation [[id number]: 5] & L-sided diplopia with potential hemineglect [...] My contact information: Paris Matt MD MPH [address] [address] (office); Pager #[phone] Email: [email or web address] documented in this encounter Discharge Instructions Patient InstructionsFiRiki de jesus MD - 12/02/2019 9:56 AM EDT Images from the original note were not included. Why you were hospitalized: You had a heart attack. You received clot-busting medications at another hospital and then at [facility] you had a [...] FOR ONE MONTH AND THEN STOP. Your spinning mule operator may tell you to start this medication again after one year. Clopidogrel (Plavix) 75 mg daily - This medication will help prevent clots from forming in your blood, which will help protect the stent that was placed in your heart vessel. TAKE THIS FOR ONE YEAR ANDTHEN DISCUSS WITH YOUR COPRA PROCESSOR WHETHER TO STOP. Amiodarone 400mg twice daily [...] follow up: Your primary care provider and spinning mule operator will manage your blood thinner (apixaban). You do not need lab monitoring of this medication. Diet: Please consume a healthy diet low in cholesterol Follow up Appointments: 12/10/2019 at 3:10PM with PCP Angel Luis Lott Future Appointments Date Time Provider Department Center 12/23/2019 1:30 PM Alfreda Salas APRN [facility] [id number] [facility] 12/26/2019 9:40 AM Merlin Sanchez MD [facility] CARD 4A [facility] 12/30/2019 3:40 PM Gretchen Yoon MD [facility] CARD 4A [facility] Future Appointments and Orders Future Appointments and Orders Future Appointments Provider Department Dept Phone 12/23/2019 1:30 PM Alfreda Salas APRN Neurosurgery at [facility] Arrive at: Home [phone] Please do not come in for this visit. Your provider will call you at the number you provided. 12/26/2019 9:40 AM Merlin Sanchez MD Cardiology at [facility] Arrive at: Home [phone] Please do not come in for this visit. Your provider will call you at the number you provided. 12/30/2019 3:40 PM Gretchen Yoon MD Cardiology at [facility] Arrive at: Home [phone] Please do not come in for this visit. Your provider will call you at the number you provided. Future Orders Complete By Expires Referral to Cardiac Rehab [[id number] Custom] As directed Process Instructions: If no progress note charted, please enter Clinical details in comments. Scheduling Instructions: Questions: My question or request is: STEMI. Cardiac rehab at [facility] Referral to [facility] [REF43 Custom] As directed Process Instructions: If no progress note charted, please enter Clinical details in comments. Scheduling Instructions: Questions: My question or request is: patient with inferior stemi with history of statin allergy (rash) - please evaluate for psck9 inhibitor. Referral to Home Health - at DISCHARGE [[id number] CPT(R)] As directed Process Instructions: Scheduling Instructions: Comments: DOCUMENTATION FOR VNA SERVICES PATIENT'S LOCATION: [address] [address] (home) Boiler Testing Technician's Name: Self In discussion with the attending physician, it is certified that this patient is under his/her care and that MD, or an PICKER MACHINE OPERATOR, RODENT EXTERMINATOR, or PA who is working directly with him/her, had a buka-hq-swdg encounter that meets the physician sbsv-wd-bmdq encounter requirements with this patient on 12/07/2019. [...] for managing ADLs. HOME HEALTH CARE AGENCY: [facility], PHONE: [phone] FAX: [phone] Start of care: 24-48 hours after hospital [...] MD [address] / [place] [address] All A agencies which cover the area of patient's residence have been reviewed, either verbally or in writing, and patient/family have chosen the home health care agency noted. Questions: Agency name and contact information: [facility] Patient location post discharge: Home What services are requested: Registered Nurse Physical Therapy Occupational Therapy Start date: Responsible MD post discharge contact info: PCP Your PCP: France Lam MD [phone] For questions regarding this document or issues relating to this hospitalization on the Cardiology Service, please contact your inpatient physician through the [facility] Manager Membership . Issues after hours and on weekends will be handled by the Land Law Examiner on-call. Patient Instructions: Neurology Your Diagnosis: Left [...] be sent through Care Everywhere. Atrial Fibrillation (Dutch)Cardiac Rehabilitation (Dutch)Heart Failure (Dutch)Heart Failure: Limiting Sodium (Dutch)Hemorrhagic Stroke: General Info (Dutch)Smoking: Stopping (Dutch)Stroke Rehabilitation: General Info (Dutch)Pulmonary Embolism (Dutch)documented in this encounter Medications at Time of [...] consulted in the interim. Vikash Rodriguez Pager: [phone] Paris Dodd MD - 12/08/2019 8:57 AM [...] complications include novel onset, paroxysmal atrial fibrillation [DNG4QB4WDSQ: 5] & L-sided diplopia with potential hemineglect [...] consulted in the interim. Vikash Rodriguez Pager: [phone] Paris Dodd MD - 12/07/2019 9:55 AM [...] complications include novel onset, paroxysmal atrial fibrillation [PET0DP9RHCF: 5] & L-sided diplopia with potential hemineglect [...] complications include novel onset, paroxysmal atrial fibrillation [IBH4BU3NFSA: 5] & L-sided diplopia with potential hemineglect [...] complications include novel onset, paroxysmal atrial fibrillation [VTG6HY8KCOE: 5] & L-sided diplopia with potential hemineglect [...] today; additional complications include paroxysmal atrial fibrillation [EHG8RJ6GPMD: 4] c/b possible cardioembolic stroke, ICH from [...] Recent Labs 12/05/19 0418 12/04/19 0428 12/03/19 19512/03/19 0402 NA 136 135 -- -- 136 [...] length from neck/greatest diameter to back wall: TURKISH 91, CAU 13: 19 mm CORTES 1, [...] a non-culprit artery. S/P DESx3 in the ngnemltx-va-qrjgqh RCA. Aspiration thrombectomy performed, and integrellin bolus [...] complications include novel onset, paroxysmal atrial fibrillation [VZL4FH7YCXF: 5] & L-sided diplopia with potential hemineglect [...] R occipital cardioembolic stroke #Paroxysmal Afib with RH8UJMFO6T score of 5 #New segmental bilateral PEs [...] Glasgow MD PGY1, Internal Medicine Cardiology S2, #2855 Associated attestation - Paris Dodd MD - 12/05/2019 2:59 PM EDT I was the assigned attending spinning mule operator for this clinical encounter. For the [...] 12/04/2019 10:36 AM EDT Office of Care Management(OCM)/Loss Claim Clerk(CM)/Discharge Planning Service: Cardiology S2 team CM Bernie Alexander,RN,BSN,MA,ACM pgr [phone] Reviewed record and in Cardiology Rounds with MD team,CMs, adventure education teacher, SALES SECRETARY. Pt is anticipated ready for d/c later [...] to his PCP and to any [facility] appt for each [...] complications include novel onset, paroxysmal atrial fibrillation [QJP2BQ2DOGU: 4] & L-sided diplopia with potential hemineglect [...] a non-culprit artery. S/P DESx3 in the wvdcavtk-pk-odrcja RCA. Aspiration thrombectomy performed, and integrellin bolus [...] complications include novel onset, paroxysmal atrial fibrillation [BJD5AI4GTJO: 5] & L-sided diplopia with potential hemineglect [...] R occipital cardioembolic stroke #Paroxysmal Afib with PU0CPIGU3K score of 5 - No anticoagulation for [...] Glasgow MD PGY1, Internal Medicine Cardiology S2, #6828 I have seen the patient and reviewed [...] in my clinic. Gretchen Yoon MD Pager [phone] Derian Pascual RN - 12/03/2019 9:29 AM [...] Discharge: None Electronically signed: Derian Pascual RN, Loss Claim Clerk Pgr: [phone] 12/03/2019 9:29 AM Gretchen Yoon [...] complications include novel onset, paroxysmal atrial fibrillation [OOT4ST8PLPT: 4] & L-sided diplopia with potential hemineglect [...] a non-culprit artery. S/P DESx3 in the apuawnyn-ub-lgegmg RCA. Aspiration thrombectomy performed, and integrellin bolus [...] complications include novel onset, paroxysmal atrial fibrillation [BRB2XK3WYGP: 5] & L-sided diplopia with potential hemineglect [...] [facility] and follow up with his PCP. Patient voiced strong will to quit smoking now, understood that we have resources available for help. Plan [P]: --Neurologic-- # Concern for Left-Sided Diplopia, r/o Hemineglect # Concern for CVA, last-known well 11/29/19 - MRI showed possible cardioembolic stroke #Afib with CT2HWNMI2N score of 5 - Stroke Team Consulted; [...] Anticoagulation/Arrhythmia # Novel Onset, Paroxsymal Atrial Fibrillation [RSZ8JF8ZNQP: 5] - Hold off anticoagulation for at [...] straight cath prn # Nutrition - [facility] Diet, 2g Na. [...] Glasgow MD PGY1, Internal Medicine Cardiology S2, #8155 I have seen the patient and reviewed the resident's above history and I agree with the details as written. The assessment and plan were formulated in discussion with me and I agree with them as documented. Gretchen Yoon MD Pager [phone] Raul Hein RN - 12/03/2019 5:55 AM [...] Negative mcL Appearance UA Clear Clear Spec Dixon UA 1.026 1.006 - 1.030 Color UA [...] PGY3 Neurology Resident 12/01/2019 Vascular Neurology Pager [phone] Neurology Attending Attestation I evaluated the patient [...] Deepthi Roman MD Vascular Neurology Standard [facility] Swallow Screen: This [...] diet as medical provider deems appropriate. Consider INFLATED PAD BUFFER consult for full evaluation and diet recommendations. [...] complications include novel onset, paroxysmal atrial fibrillation [IGF4AO9RQAU: 4] & L-sided diplopia with potential hemineglect [...] 0.3 BILIDIR 0.1 Recent Labs 12/02/19 0455 12/01/1935411/30/192029 CALCIUM 8.1* 7.6* 7.9* MAGNESIUM 0.85 0.96 0.79 Recent Labs 11/29/19 1432 INR 1.2 PT 13.5* PTT 114* Recent Labs 12/01/19 0355 11/30/19202911/30/19 0830 11/30/19 02111/29/19 1835 CK -- -- 1,645* 1,969* 2,780* TROPONINT 4.35* 5.04* 8.04* 11.73* 17.60* No results for input(s): POCGLU in the last 168 hours. Recent Labs 12/01/19 0355 SEDRATE 25 CRP 92.5* Imaging/Studies: 1. Cardiac Catheterization, 11/29/19: Discrete 90% stenosis in the prox-to-mid RCA. Severe diffuse disease in the distal vessel. Discrete LCX stenosis in a non-culprit artery. S/P DESx3 in the jshksanp-ug-cfhmkd RCA. Aspiration thrombectomy performed, and integrellin bolus [...] complications include novel onset, paroxysmal atrial fibrillation [VGC3UH5UDJB: 5] & L-sided diplopia with potential hemineglect [...] Anticoagulation/Arrhythmia # Novel Onset, Paroxsymal Atrial Fibrillation [MFF6JW4VMEB: 5] - Hold off anticoagulation - pending [...] d/t low BP. # Nutrition - [facility] Diet -- Hematology/Oncology-- [...] Glasgow MD PGY1, Internal Medicine Cardiology S2, #5110 I have seen the patient and reviewed [...] the ICU team. Gretchen Yoon MD Pager [phone] Natalia Claros APRN - 12/02/2019 8:38 AM [...] DOBUTamine Stopped (12/01/19 1642) ??? nitroGLYcerin Stopped (12/01/19628) ??? NORepinephrine Stopped (12/01/19 0538) PRN: diphenhydrAMINE, [...] - We are signing off. Please page [phone] with any questions or concerns. For questions please call NSGY pager [phone] Natalia Claros APRN 12/02/2019 8:38 AM Clinical Documentation Improvement: Active Hospital Problems Diagnosis ??? Acute ST elevation myocardial infarction (STEMI) of inferior wall ??? Intracranial hemorrhage ??? Hyperlipidemia ??? Tobacco abuse ??? Claudication from peripheral vascular disease, left Resolved Hospital Problems No resolved problems to display. Tello Hsu, GPS NAVIGATION INSTALLER - 12/02/2019 2:06 AM EDT 12/01/192009 Oxygen [...] Scan in afternoon. Upon arrival back in [facility] placed on low flow NC [...] complications include novel onset, paroxysmal atrial fibrillation [ZCH0MP9UFIU: 4] & L-sided diplopia with potential hemineglect for which CVA evaluationto be pursued. Active Problems/Subjective: - 11/28: admitted for inferior STEMI, RV failure requiring pressor - got lytics, aspirin and plavix load, heparin gtt, and eptifibatide. 3 MACARIO stents to RCA. [place] cath - low wedge & CVP so [...] a non-culprit artery. S/P DESx3 in the mtkdagov-al-valgqy RCA. Aspiration thrombectomy performed, and integrellin bolus [...] complications include novel onset, paroxysmal atrial fibrillation [XEP6XY5WTUH: 4] & L-sided diplopia with potential hemineglect [...] Anticoagulation/Arrhythmia # Novel Onset, Paroxsymal Atrial Fibrillation [GIV1BI5EHAP: 4] - Obtain: TTE - Pending CVA [...] d/t low BP. # Nutrition - [facility] Diet -- Hematology/Oncology-- [...] MD, PGY1 PGY3, Internal Medicine Cardiology S2, #4897 I have seen the patient and reviewed [...] down the line. Gretchen Yoon MD Pager [phone] ?? Gretchen Yoon MD Pager [phone] Natalia Claros APRN - 12/01/2019 1:33 AM [...] Stopped (12/01/19 06) ??? NORepinephrine Stopped (12/01/19 05) PRN: potassium chloride ER, 20 mEq, Q4H [...] full. No facial asymmetry Tongue midline MOTOR: RUE:5 LUE:11/03 RLE: 11/03 LLE: 11/03 No pronator [...] per primary team For questions please call [facility] [place] [place] pager [phone] Natalia Claros APRN 12/01/2019 7:42 AM Clinical Documentation Improvement: Active Hospital Problems Diagnosis ??? Acute ST elevation myocardial infarction (STEMI) of inferior wall ??? Intracranial hemorrhage ??? Hyperlipidemia ??? Tobacco abuse ??? Claudication from peripheral vascular disease, left Resolved Hospital Problems No resolved problems to display. Tello Hsu, GPS NAVIGATION INSTALLER - 11/30/2019 8:44 PM EDT Respiratory [...] EDT Narrative:Visited in response to request for Planned Giving Officer services. Pt was awake, alert, oriented and in bed. Assessment:Patient coping positively with stresses of illness/hospitalization at this time. Pt says that he is hoping to get better and pt is living with and has children and grandchildren. Pt haspurpose of life and has reason to get getter and to be with family. Outcome: Provided emotional and spiritual support and encouraging presence. Planned Giving Officer services accepted.Conversation to build trusting relationship.Provided pastoral [...] complications include novel onset, paroxysmal atrial fibrillation [[id number]: 4] & L-sided diplopia with potential hemineglect for which CVA evaluationto be pursued. Active Problems/Subjective: - Overnight, CVP < 12 for which a total of 1 L IVF provided - Today AM, patient complains of subjectively reported, left-sided hemineglect with floaters and diplopia [see: exam]. - Otherwise, c/o neck pain 2/2 R IJ [place] & L radial A line. Otherwise, denies [...] 13.5* PTT 114* Recent Labs 11/30/19 0830 11/30/19214 11/29/19 1835 CK 1,645* 1,969* 2,780* TROPONINT 8.04* 11.73* 17.60* No results for input(s): POCGLU in the last 168 hours. Imaging/Studies: 1. Cardiac Catheterization, 11/29/19: Discrete 90% stenosis in the prox-to-mid RCA. Severe diffuse disease in the distal vessel. Discrete LCX stenosis in a non-culprit artery. S/P DESx3 in the hpywxvwo-le-rpmkfv RCA. Aspiration thrombectomy performed, and integrellin bolus [...] complications include novel onset, paroxysmal atrial fibrillation [[id number]: 4] & L-sided diplopia with potential hemineglect [...] Anticoagulation/Arrhythmia # Novel Onset, Paroxsymal Atrial Fibrillation [[id number]: 4] - Obtain: TTE to confirm rhythm [...] d/t low BP. # Nutrition - [facility] Diet -- Hematology/Oncology-- [...] MD, PGY3 PGY3, Internal Medicine Cardiology S2, #[id number] I have seen the patient and reviewed [...] down the line. Gretchen Yoon MD Pager [phone] Paola Capps RN - 11/30/2019 6:57 AM EDT PT still requiring 4 of levo, several attempts to titrate down (maps in 70;s) But maps would drop toless than 65. Pt very restless in bed Raising and lowering head denies pain . Integrillin stopped [id number] when bottle complete , urine tea colored [...] PCP: France Lam MD PCP phone #: [phone] Loading Machine Tool Setter: None ID/Chief Complaint: Chest pain History [...] Compazine. He was transferred directly to [facility] via [facility] for further management. Patient had an emergent PCI with 3 MACARIO stents placed to his RCA, with mild disease of LCX (report pending) at [facility]. He was found to be persistently hypotensive requiring Levo up to 10mcg/min. He was transferred to [facility] after the cath procedure. Bedside RHC showed CI 2.12, PAWP 11, PAP 38/15 indicating hypovolemic state. He received 1L bolus of NS with improvement of his blood pressure to 124/61. History of PAD, HLD - had side reactions to statins - so taking niacin and red rye grain. Chronic active smoker with more than 65 pack years. Family history of AL in father and two uncles. He's takingbaby [...] ??? Penicillins Pt doesn't remember reaction ??? Qvstsip-Ziq-Ydr Reductase Inhibitors Stiff neck, upset stomach, back pain Family History: Mother: Father: AL 2 Uncles with MIs Social History: Tobacco: Current active smoker 1 ppd. 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 Vitals: Last value Range last [...] in the last 7068 hours. Invalid input(s): [id number] Heme: No results for input(s): LDH, HAPTOGLOBIN, [...] prior to transfer and PCI at [facility]. Massive inferior STEMI with troponin level 20, currently in CVCC due to pressor requirement. BedsideRHC demonstrated evidence of elevated right sided heart failure, but his wedge was wnl. He received 1L bolus with improvement of his blood pressure and reduction of his pressor requirement. PLAN: Admit to Cardiology, S2 Team Pager # [phone] #Inferior STEMI, LEYLA 149 - Resolving EKG [...] STEMI s/p lytic therapy. Transferred to [facility] and underwent successful PCI of the RCA with MACARIO x3. Gretchen Yoon MD Pager [phone] documented in this encounter Procedure Notes Juventino [...] to the planned procedure. Hand Hygiene: The certified performance technologist did perform hand hygiene prior to arterial [...] a suspected line-associated infection. Location of Procedure: [facility] Risks and Benefits: The risks [...] to the planned procedure. Hand Hygiene: The certified performance technologist did perform hand hygiene prior to line [...] side:right An Introducer (PSI Kit) was used. [place]. Insertion Side: right. Insertion Site: internal jugular. Catheter Details: Number of Lumens: 1 Catheter Type: heparin-coated The line was placed over a guidewire. Confirmation of Venous Placement: Venous placement was confirmed by transducing the pressure. Introducer Insertion Attempts: 1 Comments: Floating the [place] Catheter Attempts: 1 Comments: Sterile Dressing: Biopatch [...] better pt back in SR. Please page [phone] for any more cares or concerns Plan [...] Handling Outcome: Ongoing (Interventions Implemented as Appropriate) 12/05/19195212/06/19 1200 12/06/19 1600 Beyer Fall Risk History [...] encouraged -- Plan of Care - Mukesh Betnley RN - 12/06/2019 3:49 AM EDT Problem: Patient Care Overview Goal: Plan of Care Review 12/04/19 16412/05/191952 Coping/Psychosocial Plan Of Care Reviewed With -- [...] complications include novel onset, paroxysmal atrial fibrillation [[id number]: 5]& L-sided diplopia with potential hemineglect for which CVA evaluation to be pursued.?MRI brain showed known hemorrhagic bleed, but also possible small embolic stroke at right occipital lobe Precautions/Special Considerations: HR less than 110, bleeding precautions, DNR, supplemental O2 2 liters ?? Interval History: NAYELI Mathias: I'm familiar with all of this. RE [...] Total Evaluation Minutes, Occupational Therapy: 10 Pager: [phone] FRANCINE Nuñez Occupational Therapy Rehabilitation Department Plan [...] complications include novel onset, paroxysmal atrial fibrillation [EGE2IX1XLEB: 5] & L-sided diplopia with potential hemineglect [...] hand rails). Baseline Mobility: Independent. Drives. 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 Time IN / OUT: 7510-5538 Total Evaluation Minutes, Physical Therapy: 15(gtx1) Barbara Baldwin, PT Pager: [phone] Physical Therapy Inpatient Rehabilitation Department Plan of Care - Tyron Callejas RN - 12/03/2019 5:45 PM EDT Problem: Patient Care Overview Goal: Plan of Care Review Outcome: Ongoing (Interventions Implemented as Appropriate) 11/30/19203512/03/19 08 Coping/Psychosocial Plan Of Care Reviewed With -- [...] he receives all he needs through the [facility]. Consult refused. Romain Tran, MSN, RN-, [facility] Tobacco Cs Associate [facility] Pager #[phone] Plan of Care - Romain Oglesby OT [...] complications include novel onset, paroxysmal atrial fibrillation [BIK6UG7WGHC: 5] & L-sided diplopia with potential hemineglect [...] and measurable assessment of functional outcome. Pager: [phone] ROMAIN OGLESBY OT 12/03/2019 Occupational Therapy Rehabilitation [...] in an outpatient cardiac rehabilitation program at [facility] was discussed. Patient agrees to a referral to this program. His has been a cardiac rehab patient at [facility] and he is familiar with the program. The referral will be sent at discharge and the patient should be contacted by the Program within 1- 2 weeks from discharge. Plan of Care - Barbara Baldwin, PT - 12/03/2019 10:35 AM EDT Physical Therapy Evaluation Patient profile: Angel Luis Slainas is a 74 year old M with a PMH of PAD, HLD, Active Tobacco Use & HTNwho was admitted for inferior STEMI [s/p MACARIO to RCA x3, residual LCx disease - non-culprit artery; s/p lytics] with clinical course complicated by RV failure manifesting as cardiogenic shock, for whichionotropic support to be initiated today; additional complications include novel onset, paroxysmal atrial fibrillation [ZLO3TQ6XFGL: 5] & L-sided diplopia with potential hemineglect [...] hand rails). Baseline Mobility: Independent. Drives. Shares digital marketing officer with his , however her mobility is [...] in this evaluation. Time IN / OUT: 2649-2568 Total Evaluation Minutes, Physical Therapy: 25(eval, gtx1) Barbara Baldwin, PT Pager: [phone] Physical Therapy Inpatient Rehabilitation Department Consult Note [...] Please contact JOHANNA NOBLES RN on pager [phone] or the wound care team at [phone] or pager [phone] skin and wound care concerns or questions. [...] law. Any patient receiving carspousee at [facility] must abide by [place] law. The hierarchy [...] Insurance: N/A Prescription Coverage: Yes Preferred Pharmacy: [place], [place] Other: No Primary Care Provider: France Lam MD [phone] Patient/Caregiver Goals of Treatment: Return home Potential Needs for Transition of Care: Rehab/SNF: Based on discussions with the multi-disciplinary healthcare team, the patient would benefit from SNF level of care at discharge. ?? I have met with the patient to discuss discharge planning needs. I have provided the [facility], Officeof Care Management letter from the Auditing Coder pertaining to rehab referrals. I have also provided a letter describing our affiliations within the [facility] and educated them about their right [...] have [facility]: ?? [facility] [address] [place] [id number] ?? [address]. [address] , [place] [address] Note routed to Manager Merchandising who will communicate referrals to facilities and provide any required information. Home Health: If therapies recommend home w/ VNA, the patient has been provided a list of Home Health Agencies/DME vendors which serve their preferred geographic area. A letter describing our affiliations was reviewed with them and they were educated about their right to choose where referrals are placed. Patient requests referral to [facility]. PHONE: [phone] FAX: [phone] Referral routed to the Manager Merchandising for matching with agency/vendor and to provide [...] Insured w/ Medicare. Gets medications filled at [facility] in [place], [place]. Son to transport at discharge Plan: Discharge dispo depending on patient's physical recovery; SNF vs home w/ VNA. A member of the Care Management team will continue to monitor progress, follow for continuity of care and assist with transition of care planning. Derian Pascual RN Pager: [phone] Plan of Care - Estefani Encarnacion RN [...] sl nitroglycerin tablet now. 2137: Pain now /10 nitro gtt initiated. Goal as discussed with [...] ??? Penicillins Pt doesn't remember reaction ??? Gubzavl-Kbk-Rne Reductase Inhibitors Stiff neck, upset stomach, back [...] noncontrast head CT and CT of the [place] at 1600 hrs. We will [...] concerning for stroke. Patient presented to [facility] in transfer for [...] ??? Penicillins Pt doesn't remember reaction ??? Qyqhsom-Wxr-Zyj Reductase Inhibitors Stiff neck, upset stomach, back [...] file Gets together: Not on file Attends nondenominational service: Not on file Active member of [...] L Elbow flexion 5/5 R, 5/5 L Special Services Coordinator LE: 5/5 R, 5/5 L Hip flexion [...] Resident 11/30/2019 Vascular Neurology Pager [phone] Standard [facility] Swallow Screen: This [...] diet as medical provider deems appropriate. Consider INFLATED PAD BUFFER consult for full evaluation and diet recommendations. [...] Afib admitted s/p thrombolysis and Cath-Stent to [facility] who developed R sided visual symptoms. CT [...] Note Patient Name: Angel Luis Salinas : [id number] MR#: [id number] Case Date: 11/29/2019 Surgeon: Surgeon(s) and Role: * Gretchen Yoon MD - Primary * Aidan Ward MD - Fellow Preoperative diagnosis: Inferior STEMI Postoperative diagnosis: Inferior STEMI Procedure(s) (LRB): CARDIAC CATHETERIZATION (N/A) Findings: Discrete 90% stenosis in the prox-to-mid RCA. Severe diffuse disease in the distal vessel. Discrete LCX stenosis in a non-culprit artery. S/P DESx3 in the hxgdmkus-sy-uxmter RCA. Aspiration thrombectomy performed, and integrellin bolus x2+ infusion. Nicardipine given during case due to intermittent sluggish flow. Complications: None documented in this encounter Plan of Treatment Upcoming Encounters Date Type Specialty Care Team Description 06/30/2022 Office Visit Endocrinology Alan Terrell MD [facility] [address] ENDOCRINOLOGY [place], [place] [address] (Wo rk) Scheduled Referrals Name [...] are i n the results section. CT [facility] [place] W STAT 11/30/2019 4:36 Res [...] athologist Signature Potassium 3.9 3.5 - 5.0 [facility] DOV mmol/L [facility] [...] Organization Address City/State/ZIP Code Phon e Number [place] [id number] (ABNORMAL) Hemogram (12/08/2019 12:39 PM EDT) Analysis Performed At Patho logist Time Signature WBC 9.9 (H) 4.0 - 9.5 [place] x10(3[facility] LAB[facility]ATORY RBC 4.51 (L) 4.58 - [place] 5.54 [facility] x10(6)/[facility] LABORATORY Hemoglobin 13.0 (L) 13.7 - [place] 16.5 gm/dL [facility] LABORATORY Hematocrit 40.5 40.5 - [place] 48.5 % [facility] LABORATORY MCV 89.8 82.9 - [place] 93.1 [facility] LABORATORY MCH 28.8 27.5 - [place] 32.1 pg [facility] LABORATORY MCHC 32.1 32.0 - [place] 35.7 gm/dL [facility] LABORATORY Platelets 214 145 - 357 [place] x10(3[facility] LABORATORY RDWSD 49.2 (H) 36.0 - [place] 45.0 [facility] LABORATORY RDWCV 15.1 (H) 11.4 - [place] 13.8 % [facility] LABORATORY MPV 12.1 7.6 - 12.9 [place] [facility] LABORATORY nRBC % Auto 0.0 % [facility] LABORATORY nRBC Abs Auto 0.000 0.000 - [place] 0.000 [facility] x10(3)/[facility] LABORATORY Specimen Anatomical Collection Method Collection Time Receive d Time (Source) Location / / Volume Laterality Blood specimen 12/08/2019 12:39 0 (specimen) PM EDT 12:47 PM EDT Resulting Agency Comment Spec In Lab Gretchen Yoon MD HEMATOLOGY ORDERABLES Performing Organization Address City/[facility]/ZIP Code Phon e Number [address] Hepatic Function Panel (12/08/2019 6:28 AM EDT) P athologist Signature Total Protein 6.6 6.1 - 8.0 [facility] DOV gm/dL [facility] LABORATORY Albumin 3.2 3.2 - 5.2 [facility] DOV gm/dL [facility] LABORATORY AST 18 0 - 39 [facility] unit/L [facility] LABORATORY ALT 13 0 - 55 [facility] DOV unit/L [facility] LABORATORY Alk Phos 64 40 - 130 [facility] LABORATORY Total 0.4 0.2 - 1.3 [facility] Bilirubin mg/dL [facility] LABORATORY Bili, Direct 0.1 0.0 - 0.3 [facility] DOV mg/dL [facility] LABORATORY Specimen Anatomical Collection Method Collection Time Receive d Time (Source) Location / / Volume Laterality Blood specimen Venous Draw / 12/08/2019 6:28 AM 2019 6:36 (specimen) Unknown EDT AM EDT Resulting Agency Comment Spec In Lab Riki Stevens MD CHEMISTRY ORDERABLES Performing Organization Address City/State/ZIP Code Phon e Number [place], [place] [phone] [place] [address] (ABNORMAL) TSH (12/08/2019 6:28 AM EDT) P athologist Signature TSH 5.27 (H) 0.27 - 4.20 [place] D[place] mcIU/mL [facility] LABORATORY Specimen Anatomical Collection Method Collection Time Receive d Time (Source) Location / / Volume Laterality Blood specimen Venous Draw / 12/08/2019 6:28 AM 2019 6:36 (specimen) Unknown EDT AM EDT Resulting Agency Comment Spec In Lab Darrell Glasgow MD CHEMISTRY ORDERABLES Performing Organization Address City/State/[place] [address] Potassium (12/08/2019 6:28 AM EDT) P athologist Signature Potassium 4.2 3.5 - 5.0 [facility] mmol/L [facility] [...] Lagos MD CHEMISTRY ORDERABLES Performing Organization Address City/[facility]/[place] [address] (ABNORMAL) Differential, Automated (12/08/2019 12:43 AM EDT) Patholo gist Method Time Signature Neutrophils % 60.7 % [facility] LABORATORY Neutr Abs (ANC) 6.81 (H) 1.70 - [facility] 6.10 [facility] x10(3)/[facility] LABORATORY Lymphocytes % 23.4 % [facility] LABORATORY Lymphocytes Abs 2.6 0.9 - 3.2 [facility] x10(3)/[facility] LABORATORY Monocytes % 10.0 % [facility] LABORATORY Monocyte Abs 1.1 (H) 0.3 - 0.9 [facility] x10(3)/[facility] LABORATORY Eosinophils % 3.7 % [facility] LABORATORY Eosinophils Abs 0.4 0.0 - 0.4 [facility] x10(3)/[facility] LABORATORY Basophils % 1.2 % [facility] LABORATORY Basophils Abs 0.1 0.0 - 0.1 [facility] x10(3)/[facility] LABORATORY Immature Gran % 1.00 % [facility] LABORATORY Comment: Immature granulocytes(IG's)percentage an d absolute count will include metamyelocytes, myelocytes, and promyelo cytes. Blood smears from CBCs yielding IG's will be scanned manually for concor dance. If this scan disagrees with the automated IG or if promyelocytes are not ed, a manual differential will be performed. Pita Gran Abs 0.11 (H) 0.00 - 0.04 x10(3)/[facility] LABORATORY Specimen Anatomical Collection Method Collection Time Receive d Time (Source) Location / / Volume Laterality Blood specimen 12/08/2019 12:43 0 (specimen) AM EDT 12:52 AM EDT Resulting Agency Comment Spec In Lab Riki Stevens MD HEMATOLOGY ORDERABLES Performing Organization Address City/State/ZIP Code Phon e Number [place] [phone] (ABNORMAL) Hemogram (12/08/2019 12:43 AM EDT) Analysis Performed At Patho logist Time Signature WBC 11.2 (H) 4.0 - 9.5 [facility] x10(3)/[facility] LABORATORY RBC 4.46 (L) 4.58 - [facility] 5.54 [facility] x10(6)/[facility] LABORATORY Hemoglobin 13.1 (L) 13.7 - [facility] 16.5 gm/dL [facility] LABORATORY Hematocrit 40.5 40.5 - [facility] DOV 48.5 % [facility] LABORATORY MCV 90.8 82.9 - [facility] 93.1 [facility] LABORATORY MCH 29.4 27.5 - [place] D[place] 32.1 pg [facility] LABORATORY MCHC 32.3 32.0 - [facility] 35.7 gm/dL [facility] LABORATORY Platelets 215 145 - 357 [facility] x10(3)/[facility] LABORATORY RDWSD 49.8 (H) 36.0 - [place] DOV 45.0 [facility] LABORATORY RDWCV 15.2 (H) 11.4 - [facility] DOV 13.8 % [facility] LABORATORY MPV 12.3 7.6 - 12.9 [facility] LABORATORY nRBC % Auto 0.0 % [facility] LABORATORY nRBC Abs Auto 0.000 0.000 - [place] 0.000 [facility] x10(3)/[facility] LABORATORY Specimen Anatomical Collection Method Collection Time Receive d Time (Source) Location / / Volume Laterality Blood specimen 12/08/2019 12:43 0 (specimen) AM EDT 12:52 AM EDT Resulting Agency Comment Spec In Lab Riki Stevens MD HEMATOLOGY ORDERABLES Performing Organization Address City/State/ZIP Code Phon e Number [address] Magnesium (12/08/2019 12:43 AM EDT) P athologist Signature Magnesium 1.01 0.69 - 1.07 [facility] mmol/L [facility] LABORATORY Specimen Anatomical Collection Method Collection Time Receive d Time (Source) Location / / Volume Laterality Blood specimen 12/08/2019 12:43 0 (specimen) AM EDT 12:52 AM EDT Resulting Agency Comment Spec In Lab Gretchen Yoon MD CHEMISTRY ORDERABLES Performing Organization Address City/State/ZIP Code Phon e Number [address] (ABNORMAL) BMP w/fasting Glucose (12/08/2019 12:43 AM EDT) P athologist Signature Glucose 106 (H) 65 - 99 [facility] Fasting mg/dL [facility] [...] of Diabetes Mellitus, Position Statement from the [place] [employer]. ??Diabete s Care, Volume 33, Supplement 1, Jul 2009 BUN 14 10 - 20 mg/dL [facility] LABORATORY Creatinine 1.16 0.80 - 1.50 [...] estions. Chloride 99 98 - 107 mmol/L [facility] LABORATORY CO2 19 (L) 22 - 31 mmol/L [facility] LABORATORY Anion Gap 16 (H) 5 - 15 mmol/L [facility] LABORATORY Calcium 8.9 8.5 - 10.5 mg/dL [facility] LABORATORY Estimated GFR 62 >=60 mL/min/1.73 m?? [facility] LABORATORY Comment: The eGFR was calculated using the CKD-EP I equation. As with all creatinine based estimates of kidney function, eGFR values calculated with the CKD-EPI equation are not accurate in patients wi th acute kidney failure, extremes of body mass or the acutely ill. [email or web address] [place]nkBruxie eGFR 72 >=60 mL/min/1.73 m?? [facility] LABORATORY Comment: The eGFR was calculated using the CKD-EP I equation. As with all creatinine based estimates of kidney function, eGFR values calculated with the CKD-EPI equation are not accurate in patients wi th acute kidney failure, extremes of body mass or the acutely ill. [email or web address] [place] CITYnkf Specimen Anatomical Collection Method Collection Time Receive d Time (Source) Location / / Volume Laterality Blood specimen 12/08/2019 12:43 0 (specimen) AM EDT 12:52 AM EDT Resulting Agency Comment Spec In Lab Gretchen Yoon MD CHEMISTRY ORDERABLES Performing Organization Address [facility]/[place] [address] Heparin (unfractionated) Level (12/08/2019 12:43 AM EDT) athologist Signature Heparin UFH 0.60 IU/mL [facility] LABORATORY Comment: Guidelines for therapeutic unfractionate [...] Lagos MD HEMATOLOGY ORDERABLES Performing Organization Address [facility]/[place] [address] [facility] [address] Potassium (12/07/2019 8:39 PM EDT) athologist Signature Potassium 4.1 3.5 - 5.0 [facility] mmol/L [facility], [...] Lagos MD CHEMISTRY ORDERABLES Performing Organization Address City/[facility]/[place] [address] Potassium (12/07/2019 4:02 PM EDT) P athologist Signature Potassium 4.0 3.5 - 5.0 [facility]/L [facility] [...] Yoon MD CHEMISTRY ORDERABLES Performing Organization Address City/[facility] [place] [address] (ABNORMAL) Hemogram (12/07/2019 4:02 PM EDT) Analysis Performed At Patho logist Time Signature WBC 17.4 (H) 4.0 - 9.5 [facility] DOV x10(3[facility] LAB[facility] RBC 4.58 4.58 - Rewind MeDOV 5.54 [facility] x10(6)/[facility] LABORATORY Hemoglobin 13.5 (L) 13.7 - MELINA DOV 16.5 gm/dL [facility] LABORATORY Hematocrit 40.8 40.5 - MELINA DOV 48.5 % [facility] LABORATORY MCV 89.1 82.9 - MELINA DOV 93.1 fL [facility] LABORATORY MCH 29.5 27.5 - MELINA DOV 32.1 [facility] LABORATORY MCHC 33.1 32.0 - MELINA MONAE 35.7 gm/dL [facility] LABORATORY Platelets 238 145 - 357 [facility] x10(3)/[facility] LAB[facility]ATORY RDWSD 48.8 (H) 36.0 - MELINA MONAE 45.0 [facility] LABORATORY RDWCV 15.0 (H) 11.4 - [facility] DOV 13.8 % [facility] LABORATORY MPV 12.2 7.6 - 12.9 [facility] LABORATORY nRBC % Auto 0.0 % [facility] LABORATORY nRBC Abs Auto 0.000 0.000 - MELINA DOV 0.000 [facility] x10(3)/[facility] LABORATORY Specimen Anatomical Collection Method Collection Time Receive d Time (Source) Location / / Volume Laterality Blood specimen 12/07/2019 4:02 PM 020 4:08 (specimen) EDT PM EDT Resulting Agency Comment Spec In Lab Gretchen Yoon MD HEMATOLOGY ORDERABLES Performing Organization Address City/State/[place] [address] EKG 12 Lead (12/07/2019 [...] (Bezet) Calculated P -12 degrees MUSE SYSTEM [place] Calculated R 10 degrees MUSE SYSTEM [place] Calculated T -138 degrees MUSE SYSTEM [place] INTERPRETATION Supraventricular tachycardia MUSE SYSTEM Low voltage [...] MUSE SYSTEM Potassium (12/07/2019 11:43 AM EDT) athologist Signature Potassium 4.2 3.5 - 5.0 [facility] mmol/L [facility], [...] Organization Address City/State/[place] [address] Heparin (unfractionated) Level (12/07/2019 11:43 AM EDT) athologist Signature Heparin UFH 0.59 IU/mL [facility] LABORATORY Comment: Guidelines for therapeutic unfractionate [...] Lagos MD HEMATOLOGY ORDERABLES Performing Organization Address City/[facility]/ZIP Code Phon e Number [place] [id number]OS[address] Heparin (unfractionated) Level (12/07/2019 5:20 AM EDT) P athologist Signature Heparin UFH 0.53 IU/mL [facility] LABORATORY Comment: Guidelines for therapeutic unfractionate [...] Lagos MD HEMATOLOGY ORDERABLES Performing Organization Address City/[facility]/ZIP Code Phon e Number [address] (ABNORMAL) Differential, Automated (12/07/2019 5:20 AM EDT) Patholo gist Method Time Signature Neutrophils % 62.4 % [facility] LABORATORY Neutr Abs (ANC) 5.46 1.70 - [facility] 6.10 [facility] x10(3)/[facility] LABORATORY Lymphocytes % 20.3 % [facility] LABORATORY Lymphocytes Abs 1.8 0.9 - 3.2 [facility] x10(3)/[facility]ORY Monocytes % 11.0 % [facility] LABORATORY Monocyte Abs 1.0 (H) 0.3 - 0.9 [facility] x10(3)/[facility] LAB[facility]ATORY Eosinophils % 4.5 % [facility] LABORATORY Eosinophils Abs 0.4 0.0 - 0.4 [facility] x10(3)/[facility] LAB[facility]ATORY Basophils % 0.9 % [facility] LABORATORY Basophils Abs 0.1 0.0 - 0.1 [facility] x10(3)/[facility] LABORATORY Immature Gran % 0.90 % [facility] LABORATORY Comment: Immature granulocytes(IG's)percentage an d absolute count will include metamyelocytes, myelocytes, and promyelo cytes. Blood smears from CBCs yielding IG's will be scanned manually for concor dance. If this scan disagrees with the automated IG or if promyelocytes are not ed, a manual differential will be performed. Pita Gran Abs 0.08 (H) 0.00 - 0.04 x10(3)/[facility] LABORATORY Specimen Anatomical Collection Method Collection Time Receive d Time (Source) Location / / Volume Laterality Blood specimen 12/07/2019 5:20 AM 020 5:37 (specimen) EDT AM EDT Resulting Agency Comment Spec In Lab Riki Stevens MD HEMATOLOGY ORDERABLES Performing Organization Address City/State/[place] [address] (ABNORMAL) Hemogram (12/07/2019 5:20 AM EDT) Analysis Performed At Patho logist Time Signature WBC 8.7 4.0 - 9.5 [facility] x10(3[facility] LAB[facility]ATORY RBC 4.20 (L) 4.58 - [facility] 5.54 [facility] x10(6)/[facility] LABORATORY Hemoglobin 12.3 (L) 13.7 - [facility] 16.5 gm/dL [facility] LABORATORY Hematocrit 37.4 (L) 40.5 - MELINA MONAE 48.5 % [facility] LABORATORY MCV 89.0 82.9 - MELINA VILLANUEVACK 93.1 [facility] LABORATORY MCH 29.3 27.5 - MELINA VILLANUEVACK 32.1 pg [facility] LABORATORY MCHC 32.9 32.0 - MELINA [place] 35.7 gm/dL [facility] LABORATORY Platelets 181 145 - 357 [facility] x10(3)/[facility] LABORATORY RDWSD 47.7 (H) 36.0 - MELINA [place] 45.0 [facility] LABORATORY RDWCV 14.8 (H) 11.4 - MELINA VILLANUEVACK 13.8 % [facility] LABORATORY MPV 12.3 7.6 - 12.9 [facility] LABORATORY nRBC % Auto 0.0 % [facility] LABORATORY nRBC Abs Auto 0.000 0.000 - MELINA MARSHDOV 0.000 [facility] x10(3)/[facility] LABORATORY Specimen Anatomical Collection Method Collection Time Receive d Time (Source) Location / / Volume Laterality Blood specimen 12/07/2019 5:20 AM 020 5:37 (specimen) EDT AM EDT Resulting Agency Comment Spec In Lab Riki Stevens MD HEMATOLOGY ORDERABLES Performing Organization Address City/[facility]/ZIP Code Phon e Number [address] Magnesium (12/07/2019 5:20 AM EDT) athologist Signature Magnesium 0.89 0.69 - 1.07 [facility] mmol/L [facility] LABORATORY Specimen Anatomical Collection Method Collection Time Receive d Time (Source) Location / / Volume Laterality Blood specimen 12/07/2019 5:20 AM 020 5:37 (specimen) EDT AM EDT Resulting Agency Comment Spec In Lab Gretchen Yoon MD CHEMISTRY ORDERABLES Performing Organization Address City/[facility]/ZIP Code Phon e Number [address] (ABNORMAL) BMP w/fasting Glucose (12/07/2019 5:20 AM EDT) athologist Signature Glucose 100 (H) 65 - 99 [facility] Fasting mg/dL [facility] [...] of Diabetes Mellitus, Position Statement from the [place] [employer]. ??Diabete s Care, Volume 33, [...] estions. Chloride 101 98 - 107 mmol/L [facility] LABORATORY CO2 20 (L) 22 - 31 mmol/L [facility] LABORATORY Anion Gap 14 5 - 15 mmol/L [facility] LABORATORY Calcium 8.8 8.5 - 10.5 mg/dL [facility] LABORATORY Estimated GFR 87 >=60 mL/min/1.73 m?? [facility] LABORATORY Comment: The eGFR was calculated using the CKD-EP I equation. As with all creatinine based estimates of kidney function, eGFR values calculated with the CKD-EPI equation are not accurate in patients wi th acute kidney failure, extremes of body mass or the acutely ill. [email or web address] OK[facility] CITYnkf eGFR 101 >=60 mL/min/1.73 m?? [facility] LABORATORY Comment: The eGFR was calculated using the CKD-EP I equation. As with all creatinine based estimates of kidney function, eGFR values calculated with the CKD-EPI equation are not accurate in patients wi th acute kidney failure, extremes of body mass or the acutely ill. [email or web address] CITYnkf Specimen Anatomical Collection Method Collection Time Receive d Time (Source) Location / / Volume Laterality Blood specimen 12/07/2019 5:20 AM 020 5:37 (specimen) EDT AM EDT Resulting Agency Comment Spec In Lab Gretchen Yoon MD CHEMISTRY ORDERABLES Performing Organization Address City/State/[place] [address] Heparin (unfractionated) Level (12/06/2019 10:14 PM EDT) athologist Signature Heparin UFH 0.29 IU/mL [facility] LABORATORY Comment: Guidelines for therapeutic unfractionate [...] Organization Address City/State/[place] [address] [place] Head wo Contrast [...] For questions regarding this report, please contact [facility] number below. ? Narrative 12/06/2019 10:06 [...] Signature WBC 10.4 (H) 4.0 - 9.5 [facility] Adictiz x10(3)/[facility] LABORATORY RBC 4.32 (L) 4.58 - MELINA DOV 5.54 [facility] x10(6)/[facility] LABORATORY Hemoglobin 12.5 (L) 13.7 - MELINA DOV 16.5 gm/dL [facility] LABORATORY Hematocrit 38.4 (L) 40.5 - MELINA DOV 48.5 % [facility] LABORATORY MCV 88.9 82.9 - [facility] DOV 93.1 [facility] LABORATORY MCH 28.9 27.5 - Rewind MeDOV 32.1 pg [facility] LABORATORY MCHC 32.6 32.0 - MELINA DOV 35.7 gm/dL [facility] LABORATORY Platelets 194 145 - 357 [facility] x10(3[facility] LAB[facility]ORY RDWSD 46.9 (H) 36.0 - [facility] DOV 45.0 [facility] LABORATORY RDWCV 14.6 (H) 11.4 - MELINA DOV 13.8 % [facility] LABORATORY MPV 11.9 7.6 - 12.9 [facility] DOV [facility] LABORATORY nRBC % Auto 0.0 % [facility] LABORATORY nRBC Abs Auto 0.000 0.000 - Boxee[facility]OCK 0.000 [facility] x10(3)/[facility] LABORATORY Specimen Anatomical Collection Method Collection Time Receive d Time (Source) Location / / Volume Laterality Blood specimen 12/06/2019 4:20 PM 020 4:31 (specimen) EDT PM EDT Resulting Agency Comment Spec In Lab Gretchen Yoon MD HEMATOLOGY ORDERABLES Performing Organization Address City/State/ZIP Code Phon e Number [place] [id number]OS[address] LAB[address]ORY Drive Heparin (unfractionated) Level (12/06/2019 4:20 PM EDT) athologist Signature Heparin UFH 0.30 IU/mL [facility] LABORATORY Comment: Guidelines for therapeutic unfractionate [...] Address City/State/ZIP Code Phon e Number [address] Heparin (unfractionated) Level (12/06/2019 10:02 AM EDT) athologist Signature Heparin UFH <0.04 IU/mL [facility] LABORATORY Comment: Guidelines for therapeutic unfractionate [...] City/State/[place] [address] Magnesium (12/06/2019 3:36 AM EDT) P athologist Signature Magnesium 0.86 0.69 - 1.07 [facility] mmol/L [facility] LABORATORY Specimen Anatomical Collection Method Collection Time Receive d Time (Source) Location / / Volume Laterality Blood specimen 12/06/2019 3:36 AM 020 3:45 (specimen) EDT AM EDT Resulting Agency Comment Spec In Lab Gretchen Yoon MD CHEMISTRY ORDERABLES Performing Organization Address City/State/[place] [address] (ABNORMAL) BMP w/fasting Glucose (12/06/2019 3:36 AM EDT) P athologist Signature Glucose 103 (H) 65 - 99 [facility] Fasting mg/dL [facility] [...] of Diabetes Mellitus, Position Statement from the [place] [employer]. ??Diabete s Care, Volume 33, [...] estions. Chloride 103 98 - 107 mmol/L [facility] LABORATORY CO2 19 (L) 22 - 31 mmol/L [facility] LABORATORY Anion Gap 14 5 - 15 mmol/L [facility] LABORATORY Calcium 8.7 8.5 - 10.5 mg/dL [facility] LABORATORY Estimated GFR 85 >=60 mL/min/1.73 m?? [facility] LABORATORY Comment: The eGFR was calculated using the CKD-EP I equation. As with all creatinine based estimates of kidney function, eGFR values calculated with the CKD-EPI equation are not accurate in patients wi th acute kidney failure, extremes of body mass or the acutely ill. [email or web address] eGFR 99 >=60 mL/min/1.73 m?? [facility] LABORATORY Comment: The eGFR was calculated using the CKD-EP I equation. As with all creatinine based estimates of kidney function, eGFR values calculated with the CKD-EPI equation are not accurate in patients wi th acute kidney failure, extremes of body mass or the acutely ill. [email or web address] Specimen Anatomical Collection Method Collection Time Receive d Time (Source) Location / / Volume Laterality Blood specimen 12/06/2019 3:36 AM 020 3:45 (specimen) EDT AM EDT Resulting Agency Comment Spec In Lab Gretchen Yoon MD CHEMISTRY ORDERABLES Performing Organization Address City/State/[place] [address] (ABNORMAL) Hemogram (12/06/2019 3:36 AM EDT) Analysis Performed At Patho logist Time Signature WBC 9.2 4.0 - 9.5 [facility] x10(3[facility] RBC 3.99 (L) 4.58 - MELINA DOV 5.54 [facility] x10(6)/[facility] LABORATORY Hemoglobin 11.9 (L) 13.7 - [facility] DOV 16.5 gm/dL [facility] LABORATORY Hematocrit 35.5 (L) 40.5 - MELINA DOV 48.5 % [facility] LABORATORY MCV 89.0 82.9 - [facility] DOV 93.1 [facility] LABORATORY MCH 29.8 27.5 - MELINA DOV 32.1 pg [facility] LABORATORY MCHC 33.5 32.0 - [facility] DOV 35.7 gm/dL [facility] LABORATORY Platelets 164 145 - 357 [facility] x10(3[facility] RDWSD 47.6 (H) 36.0 - [facility] DOV 45.0 [facility] LABORATORY RDWCV 14.7 (H) 11.4 - MELINA DOV 13.8 % [facility] LABORATORY MPV 11.9 7.6 - 12.9 [facility] nRBC % Auto 0.0 % [facility] LABORATORY nRBC Abs Auto 0.000 0.000 - Rewind MeDOV 0.000 [facility] x10(3)/[facility] LABORATORY Specimen Anatomical Collection Method Collection Time Receive d Time (Source) Location / / Volume Laterality Blood specimen 12/06/2019 3:36 AM 020 3:45 (specimen) EDT AM EDT Resulting Agency Comment Spec In Lab Gretchen Yoon MD HEMATOLOGY ORDERABLES Performing Organization Address City/State/[place] [address] (ABNORMAL) Differential, Automated (12/05/2019 10:52 PM EDT) [facility] Method Time Signature Neutrophils % 61.9 % [facility] LABORATORY Neutr Abs (ANC) 6.02 1.70 - [facility] 6.10 [facility] x10(3)/[facility] LABORATORY Lymphocytes % 22.4 % [facility] LABORATORY Lymphocytes Abs 2.2 0.9 - 3.2 [facility] x10(3)/[facility] Monocytes % 10.4 % [facility] LABORATORY Monocyte Abs 1.0 (H) 0.3 - 0.9 [facility] x10(3)/[facility]ORY Eosinophils % 4.1 % [facility] LABORATORY Eosinophils Abs 0.4 0.0 - 0.4 [facility] x10(3)/[facility]ORY Basophils % 0.7 % [facility] LABORATORY Basophils Abs 0.1 0.0 - 0.1 [facility] x10(3)/[facility] LAB[facility]ATORY Immature Gran % 0.50 % [facility] LABORATORY Comment: Immature granulocytes(IG's)percentage an d absolute count will include metamyelocytes, myelocytes, and promyelo cytes. Blood smears from CBCs yielding IG's will be scanned manually for concor dance. If this scan disagrees with the automated IG or if promyelocytes are not ed, a manual differential will be performed. Pita Gran Abs 0.05 (H) 0.00 - 0.04 x10(3)/[facility] LABORATORY Specimen Anatomical Collection Method Collection Time Receive d Time (Source) Location / / Volume Laterality Blood specimen 12/05/2019 10:52 0 (specimen) PM EDT 10:59 PM EDT Resulting Agency Comment Spec In Lab Mandi Barrera MD HEMATOLOGY ORDERABLES Performing Organization Address City/State/[place] [address] (ABNORMAL) Hemogram (12/05/2019 10:52 PM EDT) Analysis Performed At Patho logist Time Signature WBC 9.7 (H) 4.0 - 9.5 [facility] x10(3)/[facility] LAB[facility]ATORY RBC 4.07 (L) 4.58 - [facility] DOV 5.54 [facility] x10(6)/[facility] LABORATORY Hemoglobin 11.9 (L) 13.7 - [facility] 16.[facility] gm/dL [facility] LABORATORY Hematocrit 36.4 (L) 40.5 - [facility] 48.5 % [facility] LABORATORY MCV 89.4 82.9 - [facility] 93.1 [facility] LABORATORY MCH 29.2 27.5 - [facility] DOV 32.1 pg [facility] LABORATORY MCHC 32.7 32.0 - [facility] DOV 35.7 gm/dL [facility] LABORATORY Platelets 167 145 - 357 [facility] x10(3[facility]ORY RDWSD 47.7 (H) 36.0 - [facility] DOV 45.0 [facility] LABORATORY RDWCV 14.6 (H) 11.4 - [facility] DOV 13.8 % [facility] LABORATORY MPV 12.1 7.6 - 12.9 [facility] LABORATORY nRBC % Auto 0.0 % [facility] LABORATORY nRBC Abs Auto 0.000 0.000 - [facility] DOV 0.000 [facility] x10(3)/[facility] LABORATORY Specimen Anatomical Collection Method Collection Time Receive d Time (Source) Location / / Volume Laterality Blood specimen 12/05/2019 10:52 0 (specimen) PM EDT 10:59 PM EDT Resulting Agency Comment Spec In Lab Mandi Barrera MD HEMATOLOGY ORDERABLES Performing Organization Address City/State/[place] [address] Heparin (unfractionated) Level (12/05/2019 10:52 PM EDT) P athologist Signature Heparin UFH <0.04 IU/mL [facility] LABORATORY Comment: Guidelines for therapeutic unfractionate [...] City/State/[place] [address] MRI Brain wwo Contrast [...] Time Signature WBC 8.7 4.0 - 9.5 [facility] x10(3[facility]ORY RBC 4.17 (L) 4.58 - MELINA DOV 5.54 [facility] x10(6)/[facility] LABORATORY Hemoglobin 12.4 (L) 13.7 - [facility] 16.5 gm/dL [facility] LABORATORY Hematocrit 37.0 (L) 40.5 - [facility] DOV 48.5 % [facility] LABORATORY MCV 88.7 82.9 - [facility] DOV 93.1 [facility] LABORATORY MCH 29.7 27.5 - MELINA DOV 32.1 pg [facility] LABORATORY MCHC 33.5 32.0 - [facility] DOV 35.7 gm/dL [facility] LABORATORY Platelets 173 145 - 357 [facility] x10(3[facility] RDWSD 47.3 (H) 36.0 - [facility] DOV 45.0 [facility] LABORATORY RDWCV 14.6 (H) 11.4 - [facility] DOV 13.8 % [facility] LABORATORY MPV 12.1 7.6 - 12.9 [facility] nRBC % Auto 0.0 % [facility] LABORATORY nRBC Abs Auto 0.000 0.000 - M[place]INA DOV 0.000 [facility] x10(3)/[facility] LABORATORY Specimen Anatomical Collection Method Collection Time Receive d Time (Source) Location / / Volume Laterality Blood specimen 12/05/2019 1:00 PM 020 1:13 (specimen) EDT PM EDT Resulting Agency Comment Spec In Lab Gretchen Yoon MD HEMATOLOGY ORDERABLES Performing Organization Address City/State/[place] [address] EKG 12 Lead (12/05/2019 10:52 AM EDT) Component Value Ref Range Test Analysis Performed Pathologis t Method Time At Signature Ventricular rate 72 BPM MUSE SYSTEM Atrial Rate 72 BPM MUSE SYSTEM P-R Interval 138 ms MUSE SYSTEM QRS Duration 96 ms MUSE SYSTEM Q-T Interval 396 ms MUSE SYSTEM QTC Calculated 433 ms MUSE SYSTEM (Bezet) Calculated P [place] 65 degrees MUSE SYSTEM Calculated R [place] 13 degrees MUSE SYSTEM Calculated T [place] 0 degrees MUSE SYSTEM INTERPRETATION Sinus rhythm Occasional Premature ventricular complexe s MUSE SYSTEM Possible Inferior infarct (cited on or before 29-NOV-2019) Abnormal ECG When compared with ECG of 04-DEC-2019 10:43, Sinus rhythm has replaced Atrial fibrillation Vent. rate has decreased BY ??86 BPM Confirmed by MD Ceja Daniel ([id number]) on 12/05/2019 3:55:22 PM Specimen Anatomical Collection Method Collection Time Receive d Time (Source) Location / / Volume Laterality 12/05/2019 10:52 12/05/2019 3:55 AM EDT PM EDT Paris Lagos MD ECG ORDERABLES Performing Organization Address City/State/ZIP Code Phon e Number MUSE SYSTEM Duplex Study for DVT, Bilat legs (12/05/2019 7:00 AM EDT) Component Value Ref Test Analysis Performed At [facility] gist Range Method Time Signature VB Text Department: Vascular Surgery Lab VASCUBASE Report Patient: [id number] (ANGEL LUIS SALINAS) CPT: 89322 ICD10: I26.99 Referring Physician: GRETCHEN YOON ?? [...] athologist Signature Magnesium 0.87 0.69 - 1.07 [facility] mmol/L [facility] LABORATORY Specimen Anatomical Collection Method Collection Time Receive d Time (Source) Location / / Volume Laterality Blood specimen 12/05/2019 4:18 AM 020 4:31 (specimen) EDT AM EDT Resulting Agency Comment Spec In Lab Gretchen Yoon MD CHEMISTRY ORDERABLES Performing Organization Address City/State/[place] [address] (ABNORMAL) BMP w/fasting Glucose (12/05/2019 4:18 AM EDT) P athologist Signature Glucose 104 (H) 65 - 99 [facility] Fasting mg/dL [facility] [...] of Diabetes Mellitus, Position Statement from the [employer]. ??Diabete s Care, Volume 33, [...] estions. Chloride 103 98 - 107 mmol/L [facility] CO2 21 (L) 22 - 31 mmol/L [facility] Anion Gap 12 5 - 15 mmol/L [facility] Calcium 8.8 8.5 - 10.5 mg/dL [facility] Estimated GFR 73 >=60 mL/min/1.73 m?? [facility] Comment: The eGFR was calculated using the CKD-EP I equation. As with all creatinine based estimates of kidney function, eGFR values calculated with the CKD-EPI equation are not accurate in patients wi th acute kidney failure, extremes of body mass or the acutely ill. [email or web address] CITYnkf eGFR 84 >=60 mL/min/1.73 m?? [facility] Comment: The eGFR was calculated using the CKD-EP I equation. As with all creatinine based estimates of kidney function, eGFR values calculated with the CKD-EPI equation are not accurate in patients wi th acute kidney failure, extremes of body mass or the acutely ill. [email or web address] [place] Specimen Anatomical Collection Method Collection Time Receive d Time (Source) Location / / Volume Laterality Blood specimen 12/05/2019 4:18 AM 020 4:31 (specimen) EDT AM EDT Resulting Agency Comment Spec In Lab Gretchen Yoon MD CHEMISTRY ORDERABLES Performing Organization Address City/State/[place] [address] (ABNORMAL) Hemogram (12/05/2019 4:18 AM EDT) Analysis Performed At Patho logist Time Signature WBC 8.6 4.0 - 9.5 [facility] RBC 4.28 (L) 4.58 - [place] DOV 5.54 [facility] x10(6)/[facility] LABORATORY Hemoglobin 12.4 (L) 13.7 [facility] gm/dL [facility] LABORATORY Hematocrit 37.3 (L) 40.5 - [facility] 48.5 % [facility] LABORATORY MCV 87.1 82.9 - [facility] 93[facility]1 [facility] LABORATORY MCH 29.0 27.5 - [place] DOV 32.1 pg [facility] LABORATORY MCHC 33.2 32.0 - [place] DOV 35.7 gm/dL [facility] LABORATORY Platelets 163 145 - 357 [facility] RDWSD 46.4 (H) 36.0 - [facility] DOV 45.0 [facility] LABORATORY RDWCV 14.4 (H) 11.4 - [facility] DOV 13.8 % [facility] LABORATORY MPV 11.7 7.6 - 12.9 [facility] nRBC % Auto 0.0 % [facility]OR[facility] nRBC Abs Auto 0.000 0.000 - [place] DOV 0.000 [facility] x10(3)/[facility] LABORATORY Specimen Anatomical Collection Method Collection Time Receive d Time (Source) Location / / Volume Laterality Blood specimen 12/05/2019 4:18 AM 020 4:31 (specimen) EDT AM EDT Resulting Agency Comment Spec In Lab Gretchen Yoon MD HEMATOLOGY ORDERABLES Performing Organization Address City/State/[place] [address] Cardiac for Morphology [...] For questions regarding this report, please contact [facility] number below. ? Narrative 12/04/2019 6:16 PM EDT EXAMINATION: CT CARDIAC FOR MORPHOLOGY & FUNCTION CLINICAL HISTORY: Pt with AFib and intra cranial hemorrhage, evaluation for possible left atrial appendage closure TECHNIQUE: After timing bolus, 0.6 mm [facility] axial contiguous sections were obtained through the [...] from neck/greatest puja meter to back wall: TURKISH 91, CAU 13: ??19 mm CORTES ??1, [...] from neck/greatest puja meter to back wall: TURKISH 91, CAU 13: 19 mm CORTES 1, [...] Time Signature WBC 8.9 4.0 - 9.5 [facility] x10(3[facility] LAB[facility]ORY RBC 4.69 4.58 - [facility] 5.54 [facility] x10(6)/[facility] LABORATORY Hemoglobin 13.5 (L) 13.7 - [facility] 16.5 gm/dL [facility] LABORATORY Hematocrit 41.7 40.5 - [facility] 48.5 % [facility] LABORATORY MCV 88.9 82.9 - [place] MONAE 93.1 [facility] LABORATORY MCH 28.8 27.5 - [place] MONAE 32.1 pg [facility] LABORATORY MCHC 32.4 32.0 - [place] MONAE 35.7 gm/dL [facility] Platelets 196 145 - 357 [facility] x10(3[facility] LAB[facility]ATORY RDWSD 46.7 (H) 36.0 - M[place] MONAE 45.0 [facility] LABORATORY RDWCV 14.5 (H) 11.4 - [place] DOV 13.8 % [facility] LABORATORY MPV 12.1 7.6 - 12.9 [facility] LABORATORY nRBC % Auto 0.0 % [facility] nRBC Abs Auto 0.000 0.000 - [place] MONAE 0.000 [facility] x10(3)/[facility] LABORATORY Specimen Anatomical Collection Method Collection Time Receive d Time (Source) Location / / Volume Laterality Blood specimen 12/04/2019 12:55 0 1:06 (specimen) PM EDT PM EDT Resulting Agency Comment Spec In Lab Gretchen Yoon MD HEMATOLOGY ORDERABLES Performing Organization Address City/State/[place] [address] EKG 12 Lead (12/04/2019 10:43 AM EDT) Component Value Ref Range Test Analysis Performed Pathologis t Method Time At Signature Ventricular rate 158 BPM MUSE SYSTEM Atrial Rate 102 BPM MUSE SYSTEM QRS Duration 92 ms MUSE SYSTEM Q-T Interval 294 ms MUSE SYSTEM QTC Calculated 476 ms MUSE SYSTEM (Bezet) Calculated R [place] 17 degrees MUSE SYSTEM Calculated T [place] 90 degrees MUSE SYSTEM INTERPRETATION Atrial fibrillation with rapid ventricular response MUSE SYSTEM Possible Inferior infarct (cited on or before 29-NOV-2019) Abnormal ECG When compared with ECG of 30-NOV-2019 21:07, Atrial fibrillation has replaced Sinus rhythm Vent. rate has increased BY ??65 BPM Confirmed by MD Ceja Daniel ([id number]) on 12/05/2019 8:59:44 AM Specimen Anatomical Collection Method Collection Time Receive d Time (Source) Location / / Volume Laterality 12/04/2019 10:43 12/05/2019 8:59 AM EDT AM EDT Gretchen Yoon MD ECG ORDERABLES Performing Organization Address City/State/ZIP Code Phon e Number MUSE SYSTEM (ABNORMAL) Magnesium (12/04/2019 4:28 AM EDT) athologist Signature Magnesium 1.17 (H) 0.69 - 1.07 [facility] mmol/L [facility] LABORATORY Specimen Anatomical Collection Method Collection Time Receive d Time (Source) Location / / Volume Laterality Blood specimen 12/04/2019 4:28 AM 020 4:40 (specimen) EDT AM EDT Resulting Agency Comment Spec In Lab Gretchen Yoon MD CHEMISTRY ORDERABLES Performing Organization Address City/State/[place] [address] (ABNORMAL) BMP w/fasting Glucose (12/04/2019 4:28 AM EDT) P athologist Signature Glucose 108 (H) 65 - 99 [facility] Fasting mg/dL [facility] [...] of Diabetes Mellitus, Position Statement from the [employer]. ??Diabete s Care, Volume 33, [...] estions. Chloride 104 98 - 107 mmol/L [facility] CO2 19 (L) 22 - 31 mmol/L [facility] Anion Gap 12 5 - 15 mmol/L [facility] Calcium 8.5 8.5 - 10.5 mg/dL [facility] Estimated GFR 85 >=60 mL/min/1.73 m?? [facility] Comment: The eGFR was calculated using the CKD-EP I equation. As with all creatinine based estimates of kidney function, eGFR values calculated with the CKD-EPI equation are not accurate in patients wi th acute kidney failure, extremes of body mass or the acutely ill. [email or web address]nkf eGFR 98 >=60 mL/min/1.73 m?? [facility] Comment: The eGFR was calculated using the CKD-EP I equation. As with all creatinine based estimates of kidney function, eGFR values calculated with the CKD-EPI equation are not accurate in patients wi th acute kidney failure, extremes of body mass or the acutely ill. [email or web address] [place] [place]nkf Specimen Anatomical Collection Method Collection Time Receive d Time (Source) Location / / Volume Laterality Blood specimen 12/04/2019 4:28 AM 020 4:40 (specimen) EDT AM EDT Resulting Agency Comment Spec In Lab Gretchen Yoon MD CHEMISTRY ORDERABLES Performing Organization Address City/State/[place] [address] (ABNORMAL) Hemogram (12/04/2019 4:28 AM EDT) Analysis Performed At Patho logist Time Signature WBC 7.8 4.0 - 9.5 [facility] x10(3[facility] LAB[facility]ORY RBC 4.10 (L) 4.58 - [facility] 5.54 [facility] x10(6)/[facility] LABORATORY Hemoglobin 12.0 (L) 13.7 - M[place]ITT[place] 16.5 gm/dL [facility] LABORATORY Hematocrit 36.5 (L) 40.5 - M[place]INA VILLANUEVACK 48.5 % [facility] LABORATORY MCV 89.0 82.9 - [place] 93.1 [facility] LABORATORY MCH 29.3 27.5 - [place] 32.1 pg [facility] LABORATORY MCHC 32.9 32.0 - [place] 35.7 gm/dL [facility] LABORATORY Platelets 151 145 - 357 [facility] x10(3[facility] LAB[facility]ATORY RDWSD 46.9 (H) 36.0 - [place] 45.0 [facility] LABORATORY RDWCV 14.4 (H) 11.4 - [place] DOV 13.8 % [facility] LABORATORY MPV 12.2 7.6 - 12.9 MELINA MARSHDOV [facility] LABORATORY nRBC % Auto 0.0 % [facility]OR[facility] nRBC Abs Auto 0.000 0.000 - [place] VILLANUEVACK 0.000 [facility] x10(3)/[facility] LABORATORY Specimen Anatomical Collection Method Collection Time Receive d Time (Source) Location / / Volume Laterality Blood specimen 12/04/2019 4:28 AM 020 4:40 (specimen) EDT AM EDT Resulting Agency Comment Spec In Lab Gretchen Yoon MD HEMATOLOGY ORDERABLES Performing Organization Address City/State/[place] [address] Potassium (12/03/2019 7:55 PM EDT) athologist Signature Potassium 3.9 3.5 - 5.0 [facility] mmol/L [facility] [...] Yoon MD CHEMISTRY ORDERABLES Performing Organization Address City/[facility]/[place] [address] Potassium (12/03/2019 1:57 PM EDT) P athologist Signature Potassium 3.7 3.5 - 5.0 [facility] DOV mmol/L [facility] [...] Yoon MD CHEMISTRY ORDERABLES Performing Organization Address City/[facility]/[place] [address] (ABNORMAL) Hemogram (12/03/2019 1:57 PM EDT) Analysis Performed At Patho logist Time Signature WBC 8.8 4.0 - 9.5 [facility] D[facility] x10(3[facility] LAB[facility]ORY RBC 4.27 (L) 4.58 - [place] DOV 5.54 [facility] x10(6)/[facility] LABORATORY Hemoglobin 12.5 (L) 13.7 - [place] DOV 16.5 gm/dL [facility] LABORATORY Hematocrit 37.5 (L) 40.5 - [place] DOV 48.5 % [facility] LABORATORY MCV 87.8 82.9 - [place] DOV 93.1 [facility] LABORATORY MCH 29.3 27.5 - [place] DOV 32.1 pg [facility] LABORATORY MCHC 33.3 32.0 - [place] DOV 35.7 gm/dL [facility] LABORATORY Platelets 158 145 - 357 [place] DOV x10(3[facility] LAB[facility]ORY RDWSD 46.9 (H) 36.0 - [place] DOV 45.0 [facility] LABORATORY RDWCV 14.5 (H) 11.4 - [place] DOV 13.8 % [facility] LABORATORY MPV 12.2 7.6 - 12.9 [facility] fL [facility] LABORATORY nRBC % Auto 0.0 % [facility] nRBC Abs Auto 0.000 0.000 - [place] MONAE 0.000 [facility] x10(3)/[facility] LABORATORY Specimen Anatomical Collection Method Collection Time Receive d Time (Source) Location / / Volume Laterality Blood specimen 12/03/2019 1:57 PM 020 2:21 (specimen) EDT PM EDT Resulting Agency Comment Spec In Lab Gretchen Yoon MD HEMATOLOGY ORDERABLES Performing Organization Address City/State/ZIP Code Phon e Number [address] Magnesium (12/03/2019 4:02 AM EDT) P athologist Signature Magnesium 0.79 0.69 - 1.07 [facility] mmol/L [facility] LABORATORY Specimen Anatomical Collection Method Collection Time Receive d Time (Source) Location / / Volume Laterality Blood specimen 12/03/2019 4:02 AM 020 4:16 (specimen) EDT AM EDT Resulting Agency Comment Spec In Lab Gretchen Yoon MD CHEMISTRY ORDERABLES Performing Organization Address City/State/ZIP Code Phon e Number [address] (ABNORMAL) BMP w/fasting Glucose (12/03/2019 4:02 AM EDT) P athologist Signature Glucose 100 (H) 65 - 99 [facility] Fasting mg/dL [facility] [...] of Diabetes Mellitus, Position Statement from the [place] [employer]. ??Diabete s Care, Volume 33, [...] estions. Chloride 103 98 - 107 mmol/L [facility] CO2 18 (L) 22 - 31 mmol/L [facility] Anion Gap 15 5 - 15 mmol/L [facility]ORY Calcium 8.3 (L) 8.5 - 10.5 mg/dL [facility] Estimated GFR 79 >=60 mL/min/1.73 m?? [facility] Comment: The eGFR was calculated using the CKD-EP I equation. As with all creatinine based estimates of kidney function, eGFR values calculated with the CKD-EPI equation are not accurate in patients wi th acute kidney failure, extremes of body mass or the acutely ill. [email or web address]nkf eGFR 92 >=60 mL/min/1.73 m?? [facility] Comment: The eGFR was calculated using the CKD-EP I equation. As with all creatinine based estimates of kidney function, eGFR values calculated with the CKD-EPI equation are not accurate in patients wi th acute kidney failure, extremes of body mass or the acutely ill. [email or web address] Specimen Anatomical Collection Method Collection Time Receive d Time (Source) Location / / Volume Laterality Blood specimen 12/03/2019 4:02 AM 06/03/2 020 4:16 (specimen) EDT AM EDT Resulting Agency Comment Spec In Lab Gretchen Yoon MD CHEMISTRY ORDERABLES Performing Organization Address City/State/ZIP Code Phon e Number [address] (ABNORMAL) Hemogram (12/03/2019 4:02 AM EDT) Analysis Performed At Patho logist Time Signature WBC 9.1 4.0 - 9.5 [facility] D[facility] x10(3[facility]ORY RBC 4.01 (L) 4.58 - [place] DOV 5.54 [facility] x10(6)/[facility] LABORATORY Hemoglobin 11.8 (L) 13.7 - [facility] DOV 16.5 gm/dL [facility] LABORATORY Hematocrit 35.6 (L) 40.5 - [place] DOV 48.5 % [facility] LABORATORY MCV 88.8 82.9 - [facility] DOV 93.1 [facility] LABORATORY MCH 29.4 27.5 - [place] DOV 32.1 pg [facility] LABORATORY MCHC 33.1 32.0 - [place] DOV 35.7 gm/dL [facility] LABORATORY Platelets 130 (L) 145 - 357 [facility] RDWSD 46.6 (H) 36.0 - [place] DOV 45.0 [facility] LABORATORY RDWCV 14.4 (H) 11.4 - [place] DOV 13.8 % [facility] LABORATORY MPV 12.4 7.6 - 12.9 [facility] DOV [facility] LABORATORY nRBC % Auto 0.0 % [facility] nRBC Abs Auto 0.000 0.000 - [place] DOV 0.000 [facility] x10(3)/[facility] LABORATORY Specimen Anatomical Collection Method Collection Time Receive d Time (Source) Location / / Volume Laterality Blood specimen 12/03/2019 4:02 AM 020 4:16 (specimen) EDT AM EDT Resulting Agency Comment Spec In Lab Gretchen Yoon MD HEMATOLOGY ORDERABLES Performing Organization Address City/State/[place] [address] XR Chest One View [...] Signature WBC 10.6 (H) 4.0 - 9.5 [facility] x10(3[facility] RBC 4.00 (L) 4.58 - [place] DOV 5.54 [facility] x10(6)/[facility] LABORATORY Hemoglobin 11.9 (L) 13.7 - [facility] DOV 16.5 gm/dL [facility] LABORATORY Hematocrit 35.7 (L) 40.5 - [place] DOV 48.5 % [facility] LABORATORY MCV 89.3 82.9 - [place] DOV 93.1 [facility] LABORATORY MCH 29.8 27.5 - [place] DOV 32.1 pg [facility] LABORATORY MCHC 33.3 32.0 - [place] DOV 35.7 gm/dL [facility] LABORATORY Platelets 120 (L) 145 - 357 [facility] x10(3[facility]ORY RDWSD 47.5 (H) 36.0 - [place] DOV 45.0 [facility] LABORATORY RDWCV 14.6 (H) 11.4 - [place] DOV 13.8 % [facility] LABORATORY MPV 12.0 7.6 - 12.9 [facility] DOV [facility] LABORATORY nRBC % Auto 0.0 % [facility] nRBC Abs Auto 0.000 0.000 - [place] DOV 0.000 [facility] x10(3)/[facility] LABORATORY Specimen Anatomical Collection Method Collection Time Receive d Time (Source) Location / / Volume Laterality Blood specimen 12/02/2019 12:50 0 1:22 (specimen) PM EDT PM EDT Resulting Agency Comment Spec In Lab Gretchen Yoon MD HEMATOLOGY ORDERABLES Performing Organization Address City/State/ZIP Code Phon e Number [address] Blue Tube HOLD (12/02/2019 4:55 AM EDT) P athologist Signature Blue Hold Sample in [facility] lab. [facility] LABORATORY Specimen Anatomical Collection Method Collection Time Receive d Time (Source) Location / / Volume Laterality Blood specimen Venous Draw / 12/02/2019 4:55 AM 2019 5:03 (specimen) Unknown EDT AM EDT Darrell Glasgow MD HEMATOLOGY ORDERABLES Performing Organization Address City/[facility]/ZIP Code Phon e Number [address] Magnesium (12/02/2019 4:55 AM EDT) athologist Signature Magnesium 0.85 0.69 - 1.07 [facility] mmol/L [facility] LABORATORY Specimen Anatomical Collection Method Collection Time Receive d Time (Source) Location / / Volume Laterality Blood specimen 12/02/2019 4:55 AM 020 5:02 (specimen) EDT AM EDT Resulting Agency Comment Spec In Lab Gretchen Yoon MD CHEMISTRY ORDERABLES Performing Organization Address City/[facility]/ZIP Code Phon e Number [address] (ABNORMAL) BMP w/fasting Glucose (12/02/2019 4:55 AM EDT) P athologist Signature Glucose 114 (H) 65 - 99 [facility] Fasting mg/dL [facility] [...] of Diabetes Mellitus, Position Statement from the [employer]. ??Diabete s Care, Volume 33, [...] estions. Chloride 105 98 - 107 mmol/L [facility]ORATORY CO2 18 (L) 22 - 31 mmol/L [facility]ORY Anion Gap 12 5 - 15 mmol/L [facility]ORY Calcium 8.1 (L) 8.5 - 10.5 mg/dL [facility]ORY Estimated GFR 81 >=60 mL/min/1.73 m?? [facility] Comment: The eGFR was calculated using the CKD-EP I equation. As with all creatinine based estimates of kidney function, eGFR values calculated with the CKD-EPI equation are not accurate in patients wi th acute kidney failure, extremes of body mass or the acutely ill. [email or web address] CITYnk[facility] eGFR 94 >=60 mL/min/1.73 m?? [facility] Comment: The eGFR was calculated using the CKD-EP I equation. As with all creatinine based estimates of kidney function, eGFR values calculated with the CKD-EPI equation are not accurate in patients wi th acute kidney failure, extremes of body mass or the acutely ill. [email or web address] CITYnkf Specimen Anatomical Collection Method Collection Time Receive d Time (Source) Location / / Volume Laterality Blood specimen 12/02/2019 4:55 AM 020 5:02 (specimen) EDT AM EDT Resulting Agency Comment Spec In Lab Gretchen Yoon MD CHEMISTRY ORDERABLES Performing Organization Address City/State/ZIP Code Phon e Number [address] (ABNORMAL) Hemogram (12/02/2019 4:55 AM EDT) Analysis Performed At Patho logist Time Signature WBC 9.3 4.0 - 9.5 [facility] x10(3[facility] LAB[facility]ORY RBC 3.71 (L) 4.58 - [place] DOV 5.54 [facility] x10(6)/[facility] LABORATORY Hemoglobin 10.8 (L) 13.7 - [place] DOV 16.5 gm/dL [facility] LABORATORY Hematocrit 33.1 (L) 40.5 - [place] DOV 48.5 % [facility] LABORATORY MCV 89.2 82.9 - [facility] DOV 93.1 [facility] LABORATORY MCH 29.1 27.5 - [place] DOV 32.1 pg [facility] LABORATORY MCHC 32.6 32.0 - [place] DOV 35.7 gm/dL [facility] LABORATORY Platelets 93 (L) 145 - 357 [facility] RDWSD 47.1 (H) 36.0 - [facility] DOV 45.0 [facility] LABORATORY RDWCV 14.6 (H) 11.4 - [place] DOV 13.8 % [facility] LABORATORY MPV 11.7 7.6 - 12.9 [facility] DOV [facility] LABORATORY nRBC % Auto 0.0 % [facility] LABORATORY nRBC Abs Auto 0.000 0.000 - [place] DOV 0.000 [facility] x10(3)/[facility] LABORATORY Specimen Anatomical Collection Method Collection Time Receive d Time (Source) Location / / Volume Laterality Blood specimen 12/02/2019 4:55 AM 020 5:02 (specimen) EDT AM EDT Resulting Agency Comment Spec In Lab Gretchen Yoon MD HEMATOLOGY ORDERABLES Performing Organization Address City/State/ZIP Code Phon e Number [address] Transfuse 1 unit platelets, [...] For questions regarding this report, please contact [facility] number below. ? Narrative 12/01/2019 8:02 [...] 6:20 PM EDT) athologist Signature Dispensed? Yes [facility] LABORATORY Specimen Anatomical Collection Method Collection Time Receive d Time (Source) Location / / Volume Laterality Blood specimen 12/01/2019 6:20 PM 020 6:18 (specimen) EDT PM EDT Gretchen Yoon MD BLOOD BANK ORDERABLES Performing Organization Address City/State/[place] [address] Duplex for DVT, Arm, Unilat (12/01/2019 5:08 PM EDT) Component Value Ref Test Analysis Performed At [facility] Range Method Time Signature VB Text Department: Vascular Surgery Lab VASCUBASE Report Patient: [id number] (ANGEL LUIS SALINAS) CPT: 50065 ICD10: R60.0 Referring Physician: GRETCHEN YOON ?? [...] Head CT 11/30/2019. CT angiogram of [place] 11/01. FINDINGS: Ventricles are normal in size. Basal cis terns are patent. Unchanged hyperdense 2.3 x 0.7 x 0.6 cm tubular hemorrhage projecting along the course of the left optic tract (axial [facility] 2 image 16), consistent [...] Head CT 11/30/2019. CT angiogram [place] 11/01. FINDINGS: Ventricles are normal [...] Scan, Peripheral Blood (12/01/2019 12:51 PM EDT) [facility] Method Time Signature Plat Estimate Decreased [facility] LABORATORY RBC Morphology Normal [facility] LABORATORY Giant Less than 1 /HPF [facility] LABORATORY Specimen Anatomical Collection Method Collection Time Receive d Time (Source) Location / / Volume Laterality Blood specimen 12/01/2019 12:51 0 1:05 (specimen) PM EDT PM EDT Resulting Agency Comment Spec In Lab Riki Stevens MD HEMATOLOGY ORDERABLES Performing Organization Address City/State/[place] [address] (ABNORMAL) Differential, Automated (12/01/2019 12:51 PM EDT) [facility] Method Time Signature Neutrophils % 74.9 % [facility] LABORATORY Neutr Abs (ANC) 6.34 (H) 1.70 - [facility] 6.10 [facility] x10(3)/[facility] L LABORATORY Lymphocytes % 11.4 % [facility] LABORATORY Lymphocytes Abs 1.0 0.9 - 3.2 [facility] x10(3)/[facility] LABORATORY Monocytes % 12.4 % [facility] LABORATORY Monocyte Abs 1.0 (H) 0.3 - 0.9 [facility] x10(3)/[facility] LABORATORY Eosinophils % 0.4 % [facility] LABORATORY Eosinophils Abs 0.0 0.0 - 0.4 [facility] x10(3)/[facility] LABORATORY Basophils % 0.4 % [facility] LABORATORY Basophils Abs 0.0 0.0 - 0.1 [facility] x10(3)/[facility] LABORATORY Immature Gran % 0.50 % [facility] LABORATORY Comment: Immature granulocytes(IG's)percentage an d absolute count will include metamyelocytes, myelocytes, and promyelo cytes. Blood smears from CBCs yielding IG's will be scanned manually for concor dance. If this scan disagrees with the automated IG or if promyelocytes are not ed, a manual differential will be performed. Pita Gran Abs 0.04 0.00 - 0.04 x10(3)/[facility] LABORATORY Specimen Anatomical Collection Method Collection Time Receive d Time (Source) Location / / Volume Laterality Blood specimen 12/01/2019 12:51 0 1:05 (specimen) PM EDT PM EDT Resulting Agency Comment Spec In Lab Riki Stevens MD HEMATOLOGY ORDERABLES Performing Organization Address City/State/[place] [address] (ABNORMAL) Hemogram (12/01/2019 12:51 PM EDT) Analysis Performed At Patho logist Time Signature WBC 8.4 4.0 - 9.5 [facility] x10(3[facility] LAB[facility]ORY RBC 3.69 (L) 4.58 - [facility] 5.54 [facility] x10(6)/[facility] LABORATORY Hemoglobin 10.8 (L) 13.7 - [facility] 16.5 gm/dL [facility] LABORATORY Hematocrit 32.4 (L) 40.5 - [facility] 48[facility] % [facility] LABORATORY MCV 87.8 82.9 - [facility] 93.1 fL [facility] LABORATORY MCH 29.3 27.5 - [facility] 32.1 pg [facility] LABORATORY MCHC 33.3 32.0 - [facility] 35.7 gm/dL [facility] LABORATORY Platelets 72 (L) 145 - 357 [facility] x10(3[facility] LAB[facility]ORY RDWSD 47.2 (H) 36.0 - [facility] 45.0 [facility] LABORATORY RDWCV 14.6 (H) 11.4 - [facility] 13.8 % [facility] LABORATORY MPV 12.2 7.6 - 12.9 [facility] LABORATORY nRBC % Auto 0.0 % [facility] LABORATORY nRBC Abs Auto 0.000 0.000 - [facility] 0.000 [facility] x10(3)/[facility] LABORATORY Specimen Anatomical Collection Method Collection Time Receive d Time (Source) Location / / Volume Laterality Blood specimen 12/01/2019 12:51 0 1:05 (specimen) PM EDT PM EDT Resulting Agency Comment Spec In Lab Riki Stevens MD HEMATOLOGY ORDERABLES Performing Organization Address City/[facility]/ZIP Code Phon e Number [address] (ABNORMAL) Coox2 (12/01/2019 11:42 AM EDT) Analysis Performed At Patho logist Time Signature pO2 Coox 30 mmHg [facility] LABORATORY Hgb Blood Gas 11.6 (L) 13.7 - [facility] 16.5 gm/dL [facility] LABORATORY O2HB Coox 60.8 % [facility] LABORATORY COHB Coox 0.6 % [facility] LABORATORY Comment: Nonsmokers: 0.5-1.5% COHB Smokers: Variable, but usually less than 10% Toxic: 20-30% COHB Lethal: Greater than 60% COHB METHB Coox 0.6 <=1.5 % [facility] LABORATORY Source Coox Mixed Venous [facility] LABORATORY Specimen Anatomical Collection Method Collection Time Receive d Time (Source) Location / / Volume Laterality Blood specimen 12/01/2019 11:42 0 (specimen) AM EDT 11:42 AM EDT Gretchen Yoon MD CHEMISTRY ORDERABLES Performing Organization Address City/State/[place] [address] Sedimentation rate (12/01/2019 3:55 AM EDT) P athologist Signature Sed Rate 25 3 - 46 [facility] mm/hr [facility], [...] Winn MD HEMATOLOGY ORDERABLES Performing Organization Address City/[facility]/ZIP Code Phon e Number [address] (ABNORMAL) CRP, acute inflammation (12/01/2019 3:55 AM EDT) P athologist Signature CRP 92.5 (H) <=4.9 mg/L [facility] LABORATORY Specimen Anatomical Collection Method Collection Time Receive d Time (Source) Location / / Volume Laterality Blood specimen Venous Draw / 12/01/2019 3:55 AM 2019 4:06 (specimen) Unknown EDT AM EDT Resulting Agency Comment Spec In Lab Rossy Winn MD CHEMISTRY ORDERABLES Performing Organization Address City/[facility]/ZIP Code Phon e Number [address] ABORH Recheck Status (12/01/2019 3:55 AM EDT) [facility] Invup Method Time Signature ABORH Recheck Order Placed [facility] LABORATORY ABORH Type Complete [facility] LABORATORY Specimen Anatomical Collection Method Collection Time Receive d Time (Source) Location / / Volume Laterality Blood specimen 12/01/2019 3:55 AM 020 4:15 (specimen) EDT AM EDT Resulting Agency Comment Spec In Lab Lewis Gee MD BLOOD BANK ORDERABLES Performing Organization Address City/[facility]/[place] [address] Antibody screen (12/01/2019 3:55 AM EDT) Patholo gist Method Time Signature Ab Screen Negative [facility] LABORATORY Expires at 12/04/2019 [place] MARSHDOV [id number] on: [facility] LABORATORY Specimen Anatomical Collection Method Collection Time Receive d Time (Source) Location / / Volume Laterality Blood specimen 12/01/2019 3:55 AM 020 4:15 (specimen) EDT AM EDT Resulting Agency Comment Spec In Lab Lewis Gee MD BLOOD BANK ORDERABLES Performing Organization Address [facility] [place] [address] ABO/Rh Typing (12/01/2019 3:55 AM EDT) athologist Signature ABORh Type AB Pos [facility] LABORATORY Specimen Anatomical Collection Method Collection Time Receive d Time (Source) Location / / Volume Laterality Blood specimen 12/01/2019 3:55 AM 020 4:15 (specimen) EDT AM EDT Resulting Agency Comment Spec In Lab Lewis Gee MD BLOOD BANK ORDERABLES Performing Organization Address [facility] [place] [address] (ABNORMAL) Troponin (12/01/2019 3:55 AM EDT) athologist [facility] Troponin-T 4.35 (H) 0.00 - [facility] 0.00 ng/mL [facility] [...] meets the diagnosis for a myocardial infarction (AL). Detection of a rise and/or fall of [...] additional sample may be indicated. Reference: Third Logan Definition of Myocardial Infarction. Journal of the [employer] 2012;60:1581-98 Specimen Anatomical Collection Method Collection Time Receive d Time (Source) Location / / Volume Laterality Blood specimen 12/01/2019 3:55 AM 020 4:00 (specimen) EDT AM EDT Resulting Agency Comment Spec In Lab Gretchen Yoon MD CHEMISTRY ORDERABLES Performing Organization Address City/State/ZIP Code Phon e Number [address] Magnesium (12/01/2019 3:55 AM EDT) athologist Signature Magnesium 0.96 0.69 - 1.07 [facility] mmol/L [facility] LABORATORY Specimen Anatomical Collection Method Collection Time Receive d Time (Source) Location / / Volume Laterality Blood specimen 12/01/2019 3:55 AM 020 4:00 (specimen) EDT AM EDT Resulting Agency Comment Spec In Lab Gretchen Yoon MD CHEMISTRY ORDERABLES Performing Organization Address City/State/[place] [address] (ABNORMAL) BMP w/fasting Glucose (12/01/2019 3:55 AM EDT) P athologist Signature Glucose 148 (H) 65 - 99 [facility] Fasting mg/dL [facility] [...] of Diabetes Mellitus, Position Statement from the [employer]. ??Diabete s Care, Volume 33, [...] estions. Chloride 105 98 - 107 mmol/L [facility] LABORATORY CO2 17 (L) 22 - 31 mmol/L [facility] LABORATORY Anion Gap 10 5 - 15 mmol/L [facility] LABORATORY Calcium 7.6 (L) 8.5 - 10.5 mg/dL [facility] LABORATORY Estimated GFR 78 >=60 mL/min/1.73 m?? [facility] LABORATORY Comment: The eGFR was calculated using the CKD-EP I equation. As with all creatinine based estimates of kidney function, eGFR values calculated with the CKD-EPI equation are not accurate in patients wi th acute kidney failure, extremes of body mass or the acutely ill. [email or web address] CITYnkf eGFR 91 >=60 mL/min/1.73 m?? [facility] LABORATORY Comment: The eGFR was calculated using the CKD-EP I equation. As with all creatinine based estimates of kidney function, eGFR values calculated with the CKD-EPI equation are not accurate in patients wi th acute kidney failure, extremes of body mass or the acutely ill. [email or web address] Specimen Anatomical Collection Method Collection Time Receive d Time (Source) Location / / Volume Laterality Blood specimen 12/01/2019 3:55 AM 020 4:00 (specimen) EDT AM EDT Resulting Agency Comment Spec In Lab Gretchen Yoon MD CHEMISTRY ORDERABLES Performing Organization Address City/State/[place] [address] (ABNORMAL) Hemogram (12/01/2019 3:55 AM EDT) Analysis Performed At Patho logist Time Signature WBC 11.0 (H) 4.0 - 9.5 [facility] RBC 3.46 (L) 4.58 - [facility] DOV 5.54 [facility] x10(6)/[facility] LABORATORY Hemoglobin 10.2 (L) 13.7 - [facility] 16.[facility] gm/dL [facility] LABORATORY Hematocrit 31.2 (L) 40.5 - [facility] 48.5 % [facility] LABORATORY MCV 90.2 82.9 - [facility] 93.1 [facility] LABORATORY MCH 29.5 27.5 - [place] DOV 32.1 pg [facility] LABORATORY MCHC 32.7 32.0 - [place] DOV 35.7 gm/dL [facility] LABORATORY Platelets 98 (L) 145 - 357 [facility] x10(3[facility] LAB[facility]ATORY RDWSD 47.9 (H) 36.0 - [facility] DOV 45.0 [facility] LABORATORY RDWCV 14.6 (H) 11.4 - [facility] DOV 13.8 % [facility] LABORATORY MPV 12.3 7.6 - 12.9 [facility] nRBC % Auto 0.0 % [facility] LABORATORY nRBC Abs Auto 0.000 0.000 - [place] DOV 0.000 [facility] x10(3)/[facility] LABORATORY Specimen Anatomical Collection Method Collection Time Receive d Time (Source) Location / / Volume Laterality Blood specimen 12/01/2019 3:55 AM 020 4:00 (specimen) EDT AM EDT Resulting Agency Comment Spec In Lab Gretchen Yoon MD HEMATOLOGY ORDERABLES Performing Organization Address City/State/ZIP Code [place] [address] (ABNORMAL) BLOOD GAS 2 ARTERIAL (11/30/2019 10:39 PM EDT) Analysis Performed At Patho logist Time Signature pH Art 7.45 7.35 - [facility] 7.45 [facility] LABORATORY pCO2 Art 23 (L) 35 - 45 [facility] mmHg [facility] LABORATORY pO2 Art 76 (L) 85 - 104 [facility] mmHg [facility] LABORATORY HCO3 Art 15.3 (L) 20.0 - [facility] 26.0 [facility] mmol/L [facility] LABORATORY BE Art -8.7 (L) -3.0 - 3.0 [facility] mmol/L [facility] LABORATORY Hgb Blood Gas 11.7 (L) 13.7 - [facility] 16.5 gm/dL [facility] LABORATORY O2HB Art 94.2 94.0 - [facility] 97.0 % [facility] LABORATORY COHB Art 0.5 % [facility] LABORATORY Comment: Nonsmokers: 0.5-1.5% COHB Smokers: [...] Blood 1.10 (L) 1.15 - 1.33 mmol/L [facility] LABORATORY Comment: Note: ??Total bilirubin higher than 20 m g/dL may lead to falsely low ionized calcium. CL Whole Blood 109 (H) 98 - 107 mmol/L [facility] LABORATORY Gluc Whole Bld 120 65 - 199 mg/dL [facility] LABORATORY Comment: Diabetes: >=200 mg/dL plus symp toms. Lactate WB 0.8 0.5 - 2.2 mmol/L [facility] LABORATORY FIO2 Art 100 % [facility] LABORATORY PF Ratio Art 76 [facility] LABORATORY Specimen Anatomical Collection Method Collection Time Receive d Time (Source) Location / / Volume Laterality Blood specimen 11/30/2019 10:39 0 (specimen) PM EDT 10:39 PM EDT Gretchen Yoon MD CHEMISTRY ORDERABLES Performing Organization Address City/[facility]/[place] [address] EKG 12 Lead (11/30/2019 [...] (Bezet) Calculated P 12 degrees [facility] [place] Calculated R 19 degrees [facility] [place] Calculated T -47 degrees [facility] [place] INTERPRETATION Sinus rhythm with Premature supraventricular complexes [...] Yoon MD ECG ORDERABLES Performing Organization Address City/[facility]/ZIP Code Phon e Number MUSE SYSTEM (ABNORMAL) Urinalysis Microscopic Exam (11/30/2019 8:40 PM EDT) P athologist Signature RBC UA 27 (H) 0 - 3 /HPF [facility] LABORATORY WBC UA 4 (H) 0 - 3 /HPF [facility] LABORATORY Hyaline Cast 3 (H) 0 - 2 /LPF [facility] LABORATORY Specimen (Source) Anatomical Collection Method Collection Time Re ceived Time Location / / Volume Laterality Urine specimen 11/30/2019 8:40 11/30/2019 obtained via PM EDT 10:51 PM EDT indwelling urinary catheter (specimen) Resulting Agency Comment Spec In Lab Rossy Winn MD URINE ORDERABLES Performing Organization Address City/State/ZIP Code Phon e Number [address] (ABNORMAL) Urinalysis with reflex Culture (11/30/2019 8:40 PM EDT) Patholo gist Method Time Signature Glucose UA Negative Negative [facility] mg/dL [facility] LABORATORY Protein UA Negative Negative [facility] mg/dL [facility] LABORATORY Bilirubin UA Negative Negative [facility] mg/dL [facility], [...] LABORATORY Blood UA Moderate (A) Negative mg/dL [facility] LABORATORY Ketones UA 40 (A) Negative mg/dL [facility] LABORATORY Nitrite UA Negative Negative [facility] LABORATORY Leukocytes UA Trace (A) Negative [facility] LABORATORY Appearance UA Clear Clear [facility] LABORATORY Spec Dixon UA 1.026 1.006 - 1.030 [facility] LABORATORY Color UA Yellow Yellow [facility] LABORATORY Culture Reflexed No [facility] LABORATORY Specimen (Source) Anatomical Collection Method Collection Time Re ceived Time Location / / Volume Laterality Urine specimen 11/30/2019 8:40 11/30/2019 obtained via PM EDT 10:51 PM EDT indwelling urinary catheter (specimen) Resulting Agency Comment Spec In Lab Gretchen Yoon MD URINE ORDERABLES Performing Organization Address City/[facility]/ZIP Code Phon e Number [address] (ABNORMAL) pro-Brain Natriuretic Peptide (11/30/2019 8:30 PM EDT) P athologist Signature ProBNP 2,802 (H) <=125 [place] DOV pg/mL [facility] LABORATORY Specimen Anatomical Collection Method Collection Time Receive d Time (Source) Location / / Volume Laterality Blood specimen Venous Draw / 11/30/2019 8:30 PM 2019 8:36 (specimen) Unknown EDT PM EDT Resulting Agency Comment Spec In Lab Rossy Winn MD CHEMISTRY ORDERABLES Performing Organization Address City/[facility]/[place] [address] (ABNORMAL) Troponin (11/30/2019 8:30 [...] meets the diagnosis for a myocardial infarction (AL). Detection of a rise and/or fall of [...] additional sample may be indicated. Reference: Third Logan Definition of Myocardial Infarction. Journal of the [place] College [employer]iology 2012;60:1581-98 Specimen Anatomical Collection Method Collection Time Receive d Time (Source) Location / / Volume Laterality Blood specimen Venous Draw / 11/30/2019 8:30 PM 2019 8:36 (specimen) Unknown EDT PM EDT Resulting Agency Comment Spec In Lab Rossy Winn MD CHEMISTRY ORDERABLES Performing Organization Address City/[facility]/[place] [address] [facility] [address]ORY Drive Magnesium (11/30/2019 8:30 PM EDT) athologist Signature Magnesium 0.79 0.69 - 1.07 [facility] mmol/L [facility] LABORATORY Specimen Anatomical Collection Method Collection Time Receive d Time (Source) Location / / Volume Laterality Blood specimen 11/30/2019 8:30 PM 020 8:35 (specimen) EDT PM EDT Resulting Agency Comment Spec In Lab Gretchen Yoon MD CHEMISTRY ORDERABLES Performing Organization Address City/State/ZIP Code Phon e Number [place] [id number] [facility] LABORATORY Drive (ABNORMAL) Basic Metabolic Panel (non-fasting) (11/30/2019 8:30 PM EDT) athologist Signature Glucose Lvl 132 65 - 199 [facility] mg/dL [facility], [...] Chloride 108 (H) 98 - 107 mmol/L [facility] LABORATORY CO2 17 (L) 22 - 31 mmol/L [facility] LABORATORY Anion Gap 11 5 - 15 mmol/L [facility] LABOR[facility]ORY Calcium 7.9 (L) 8.5 - 10.5 mg/dL [facility] LABOR[facility]ORY Estimated GFR 80 >=60 mL/min/1.73 m?? [facility] Comment: The eGFR was calculated using the CKD-EP I equation. As with all creatinine based estimates of kidney function, eGFR values calculated with the CKD-EPI equation are not accurate in patients wi th acute kidney failure, extremes of body mass or the acutely ill. [email or web address] CITYnkf eGFR 93 >=60 mL/min/1.73 m?? [facility] LABORATORY Comment: The eGFR was calculated using the CKD-EP I equation. As with all creatinine based estimates of kidney function, eGFR values calculated with the CKD-EPI equation are not accurate in patients wi th acute kidney failure, extremes of body mass or the acutely ill. [email or web address] CITYnkf Specimen Anatomical Collection Method Collection Time Receive d Time (Source) Location / / Volume Laterality Blood specimen 11/30/2019 8:30 PM 020 8:35 (specimen) EDT PM EDT Resulting Agency Comment Spec In Lab Gretchen Yoon MD CHEMISTRY ORDERABLES Performing Organization Address [facility] Phon e Number [address] Blood culture (11/30/2019 8:30 PM EDT) Patholo gist Method Time Signature Blood Culture No growth [place] at 5 days. [facility] Specimen Anatomical Collection Method Collection Time Receive d Time (Source) Location / / Volume Laterality Blood specimen 11/30/2019 8:30 PM 020 9:40 (specimen) EDT PM EDT Comment: L HAND Resulting Agency Comment Spec In Lab Gretchen Yoon MD MICROBIOLOGY - BLOOD ORDERAB LES Performing Organization Address [facility] Phon e Number [address] Blood culture (11/30/2019 8:30 PM EDT) Patholo gist Method Time Signature Blood Culture No growth MELINA MARSHDOV at 5 days. [facility] Specimen Anatomical Collection Method Collection Time Receive d Time (Source) Location / / Volume Laterality Blood specimen 11/30/2019 8:30 PM 020 9:40 (specimen) EDT PM EDT Comment: R HAND Resulting Agency Comment Spec In Lab Gretchen Yoon MD MICROBIOLOGY - BLOOD ORDERAB LES Performing Organization Address City/State/ZIP Code Phon e Number [place]INA [place] [id number] LAB[address] XR Chest One View [...] Time Signature pH Art 7.45 7.35 - [facility] 7.45 [facility] LABORATORY pCO2 Art 27 (L) 35 - 45 [facility] mmHg [facility] LABORATORY pO2 Art 68 (L) 85 - 104 [facility] mmHg [facility] LABORATORY HCO3 Art 18.2 (L) 20.0 - [facility] 26.0 [facility] mmol/L [facility] LABORATORY BE Art -5.9 (L) -3.0 - 3.0 [facility] mmol/L [facility] LABORATORY Hgb Blood Gas 12.4 (L) 13.7 - [facility] 16.5 gm/dL [facility] LABORATORY O2HB Art 93.1 (L) 94.0 - [facility] 97.0 % [facility] LABORATORY COHB Art 0.8 % [facility] LABORATORY Comment: Nonsmokers: 0.5-1.5% COHB Smokers: [...] Blood 1.13 (L) 1.15 - 1.33 mmol/L [facility] LABORATORY Comment: Note: ??Total bilirubin higher than 20 m g/dL may lead to falsely low ionized calcium. CL Whole Blood 108 (H) 98 - 107 mmol/L [facility] LABORATORY Gluc Whole Bld 121 65 - 199 mg/dL [facility] LABORATORY Comment: Diabetes: >=200 mg/dL plus symp toms. Lactate WB 1.2 0.5 - 2.2 mmol/L [facility] LABORATORY Flow Art 5.0 LPM [facility] LABORATORY Specimen Anatomical Collection Method Collection Time Receive d Time (Source) Location / / Volume Laterality Blood specimen 11/30/2019 8:09 PM 020 8:09 (specimen) EDT PM EDT Gretchen Yoon MD CHEMISTRY ORDERABLES Performing Organization Address City/State/[place] [address] Angiogram [place] (11/30/2019 4:36 PM EDT) Anatomical [...] CT HEAD WO CONTRAST (GENERIC), CT ANGIOGRAM [place] CLINICAL HISTORY: Headache, intracranial hemorrhage suspected F/U on known ICH - assessing for propaga tion TECHNIQUE: CT head performed without intravenous co ntrast administration. CT angiogram [place] 65 cc Omnipaque 350 administered [...] HEAD WO CONTRAST (GENERI C), CT ANGIOGRAM [place] CLINICAL HISTORY: Headache, intracranial hemorrhage suspected F/U on known ICH - assessing for propaga tion TECHNIQUE: CT head performed without intravenous co ntrast administration. CT angiogram [place] 65 cc Omnipaque 350 administered [...] CT HEAD WO CONTRAST (GENERIC), CT ANGIOGRAM [place] CLINICAL HISTORY: Headache, intracranial hemorrhage suspected F/U on known ICH - assessing for propaga tion TECHNIQUE: CT head performed without intravenous co ntrast administration. CT angiogram [place] 65 cc Omnipaque 350 administered [...] HEAD WO CONTRAST (GENERI C), CT ANGIOGRAM [place] CLINICAL HISTORY: Headache, intracranial hemorrhage suspected F/U on known ICH - assessing for propaga tion TECHNIQUE: CT head performed without intravenous co ntrast administration. CT angiogram [place] 65 cc Omnipaque 350 administered [...] 453 ms MUSE SYSTEM (Bezet) Calculated P [place] 52 degrees MUSE SYSTEM Calculated R [place] 5 degrees MUSE SYSTEM Calculated T [place] -60 degrees MUSE SYSTEM INTERPRETATION Sinus rhythm Occasional Ned ature ventricular complexes and Premature atrial complexes MUSE SYSTEM Inferior infarct (cited on or before 29-NOV-2019) Abnormal ECG When compared with ECG of 30-NOV-2019 07:57, Premature atrial complexes are now Present Confirmed by Suamnth Akbar MD ([id number]) on 12/02/2019 8:39:30 AM [...] H ? (Age): 1945(74y) Med Rec#: ? [id number] ?Sex: ?M ? Site Loc: ? [facility] ?Ht / Wt: ??178(cm)/64(kg) Pt. Loc: ?CCU ? BSA: ?1.8 Study Date: ?? 11/30/2019 ?Pt. Type: Inpatient Tape: ? Referring: LAHEYMICHAELJ Reading: Tello Mejia ([id number]) Clinical Psychologist: Eve Lolita Diagnosis: *ST elevation (STEMI) myocardial [...] Vmax ?0.58 ? m/sec ? MV deceleration zqpx483.05 ? m sec ? MV A-wave Vmax [...] ? Mid-Inferior ?Akinetic ? Mid-Inferoseptal ?Normal ? Lambert-Septal ? Normal ? Lambert-Anterior ? Normal ? Lambert-Lateral ?Normal ? Lambert-Inferior ? Hypokinetic ? Lambert-Tip ?Normal ? This report has been electronically sign ed by: _ Tello Mejia MD ? 11/30/2019 12: 45:27 [facility] Procedure Note Tello Mejia MD - 11/30/2019Formatti ng of this note might be different from the original. Procedure: Transthoracic Echocardiogram Patient: RITA Corcoran DOB(Age): [birth year](74y) Med Rec#: [id number] Sex: M Site Loc: [facility] Ht / Wt: 178(cm)/64(kg) Pt. Loc: CCU BSA: 1.8 Study Date: 11/30/2019 Pt. Type: Inpatie nt Tape: Referring: GILMER Reading: Tello Mejia ([id number]) Clinical Psychologist: Eve Lolita Diagnosis: *ST elevation (STEMI) myocardial [...] MV E-wave Vmax 0.58 m/sec MV deceleration erwe044.05 msec MV A-wave Vmax 0.74 m/sec MV [...] Hypokinetic Mid-Posterolateral Hypokinetic Mid-Inferior Akinetic Mid-Inferoseptal Normal Lambert-Septal Normal Lambert-Anterior Normal Lambert-Lateral Normal Lambert-Inferior Hypokinetic Lambert-Tip Normal This report has been electronically sign ed by: _ Tello Mejia MD 11/30/2019 12:45:27 Images reviewed and interpretation verif ied [facility] Cardiac Ultrasound Laboratory Gretchen [...] For questions regarding this report, please contact [facility] number below. ? Narrative 11/30/2019 12:04 PM [...] athologist Signature Magnesium 0.88 0.69 - 1.07 [facility] mmol/L [facility] LABORATORY Specimen Anatomical Collection Method Collection Time Receive d Time (Source) Location / / Volume Laterality Blood specimen Venous Draw / 11/30/2019 8:30 AM 2019 8:37 (specimen) Unknown EDT AM EDT Resulting Agency Comment Spec In Lab Rossy Winn MD CHEMISTRY ORDERABLES Performing Organization Address City/[facility]/[place] [address] (ABNORMAL) CK (11/30/2019 8:30 AM EDT) athologist Signature CK, Total 1,645 (H) 0 - 200 [facility] unit/[facility] LABORATORY Specimen Anatomical Collection Method Collection Time Receive d Time (Source) Location / / Volume Laterality Blood specimen 11/30/2019 8:30 AM 020 8:32 (specimen) EDT AM EDT Resulting Agency Comment Spec In Lab Gretchen Yoon MD CHEMISTRY ORDERABLES Performing Organization Address City/[facility]/[place] [address] (ABNORMAL) Troponin (11/30/2019 8:30 [...] meets the diagnosis for a myocardial infarction (AL). Detection of a rise and/or fall of [...] additional sample may be indicated. Reference: Third Logan Definition of Myocardial Infarction. Journal of the [place] College of Cardiology 2012;60:1581-98 Specimen Anatomical Collection Method Collection Time Receive d Time (Source) Location / / Volume Laterality Blood specimen 11/30/2019 8:30 AM 020 8:32 (specimen) EDT AM EDT Resulting Agency Comment Spec In Lab Gretchen Yoon MD CHEMISTRY ORDERABLES Performing Organization Address City/State/ZIP Code [place] [address] EKG 12 Lead (11/30/2019 7:57 AM EDT) Component Value Ref Range Test Analysis Performed Pathologis t Method Time At Signature Ventricular rate 64 BPM MUSE SYSTEM Atrial Rate 64 BPM MUSE SYSTEM P-R Interval 132 ms MUSE SYSTEM QRS Duration 78 ms MUSE SYSTEM Q-T Interval 420 ms MUSE SYSTEM QTC Calculated 433 ms MUSE SYSTEM (Bezet) Calculated P [place] 28 degrees MUSE SYSTEM Calculated R [place] 7 degrees MUSE SYSTEM Calculated T [place] -33 degrees MUSE SYSTEM INTERPRETATION Sinus rhythm [...] Signature Glucose 147 (H) 65 - 99 [facility] Fasting mg/dL [facility] [...] mg/dL should be repeated on a subseq day. Diagnosis and Classification of Diabetes Mellitus, Position Statement from the [place] Diabetes Association. ??Diabete s Care, Volume 33, [...] Chloride 108 (H) 98 - 107 mmol/L [facility] LABORATORY CO2 16 (L) 22 - 31 mmol/L [facility] LABORATORY Anion Gap 11 5 - 15 mmol/L [facility] LABORATORY Calcium 7.5 (L) 8.5 - 10.5 mg/dL [facility] LABORATORY Estimated GFR 84 >=60 mL/min/1.73 m?? [facility] LABORATORY Comment: The eGFR was calculated using the CKD-EP I equation. As with all creatinine based estimates of kidney function, eGFR values calculated with the CKD-EPI equation are not accurate in patients wi th acute kidney failure, extremes of body mass or the acutely ill. [email or web address] eGFR 98 >=60 mL/min/1.73 m?? [facility] LABORATORY Comment: The eGFR was calculated using the CKD-EP I equation. As with all creatinine based estimates of kidney function, eGFR values calculated with the CKD-EPI equation are not accurate in patients wi th acute kidney failure, extremes of body mass or the acutely ill. [email or web address] Specimen Anatomical Collection Method Collection Time Receive d Time (Source) Location / / Volume Laterality Blood specimen 11/30/2019 2:15 AM 020 2:29 (specimen) EDT AM EDT Resulting Agency Comment Spec In Lab Gretchen Yoon MD CHEMISTRY ORDERABLES Performing Organization Address City/State/[place] [address] (ABNORMAL) Hemogram (11/30/2019 2:15 AM EDT) Analysis Performed At Patho logist Time Signature WBC 11.2 (H) 4.0 - 9.5 [facility] x10(3[facility] LAB[facility]ORY RBC 3.83 (L) 4.58 - [facility] 5.54 [facility] x10(6)/[facility] LABORATORY Hemoglobin 11.4 (L) 13.7 - [facility] 16.5 gm/dL [facility] LABORATORY Hematocrit 35.2 (L) 40.5 - M[place]INA [place] 48.5 % [facility] LABORATORY MCV 91.9 82.9 - MELINA DOV 93.1 [facility] LABORATORY MCH 29.8 27.5 - MELINA MARSHDOV 32.1 pg [facility] LABORATORY MCHC 32.4 32.0 - MELINA MARSHDOV 35.7 gm/dL [facility] LABORATORY Platelets 122 (L) 145 - 357 [facility] x10(3)/[facility] LABORATORY RDWSD 49.8 (H) 36.0 - MELINA MARSHDOV 45.0 [facility] LABORATORY RDWCV 14.8 (H) 11.4 - [facility] DOV 13.8 % [facility] LABORATORY MPV 12.1 7.6 - 12.9 [facility] LABORATORY nRBC % Auto 0.0 % [facility] LABORATORY nRBC Abs Auto 0.000 0.000 - MELINA DOV 0.000 [facility] x10(3)/[facility] LABORATORY Specimen Anatomical Collection Method Collection Time Receive d Time (Source) Location / / Volume Laterality Blood specimen 11/30/2019 2:15 AM 020 2:29 (specimen) EDT AM EDT Resulting Agency Comment Spec In Lab Gretchen Yoon MD HEMATOLOGY ORDERABLES Performing Organization Address City/[facility]/[place] [address] (ABNORMAL) CK (11/30/2019 2:15 AM EDT) athologist [facility] CK, Total 1,969 (H) 0 - 200 MELINA DOV unit/L [facility] LABORATORY Specimen Anatomical Collection Method Collection Time Receive d Time (Source) Location / / Volume Laterality Blood specimen 11/30/2019 2:15 AM 020 2:29 (specimen) EDT AM EDT Resulting Agency Comment Spec In Lab Gretchen Yoon MD CHEMISTRY ORDERABLES Performing Organization Address City/[facility]/[place] [address] (ABNORMAL) Troponin (11/30/2019 2:15 [...] meets the diagnosis for a myocardial infarction (AL). Detection of a rise and/or fall of [...] additional sample may be indicated. Reference: Third Logan Definition of Myocardial Infarction. Journal of the [place] College of Cardiology 2012;60:1581-98 result rechecked- The 99th percentile for Troponin T is le ss than 0.01 ng/mL, any detectable cTnT concentration using this assay should be considered elevated. According to the third universal definit ion of myocardial infarction the following criteria with a clinical prese ntation consistent with acute myocardial ischemia meets the diagnosis for a myocardial infarction (AL). Detection of a rise and/or fall of [...] additional sample may be indicated. Reference: Third Logan Definition of Myocardial Infarction. Journal of the [employer] College of Cardiology 2012;60:1581-98 Corrected from 11.73 ng/ml [HI] on 11/29 3:11:51 EDT by Debi Hawley Specimen Anatomical Collection Method Collection Time Receive d Time (Source) Location / / Volume Laterality Blood specimen 11/30/2019 2:15 AM 020 2:29 (specimen) EDT AM EDT Resulting Agency Comment Spec In Lab Gretchen Yoon MD CHEMISTRY ORDERABLES Performing Organization Address City/[facility]/ZIP Code Phon e Number [address] LDL Cholesterol, Direct (11/30/2019 2:15 AM EDT) P athologist Signature LDL Chol 156 mg/dL [facility] LABORATORY Comment: Lowest Risk: <100 mg/dL Lower Risk: 100-129 mg/dL Borderline High Risk: 130-159 mg/dL High Risk: 160-189 mg/dL Very High Risk: >fw=406 mg/dL Specimen Anatomical Collection Method Collection Time Receive d Time (Source) Location / / Volume Laterality Blood specimen 11/30/2019 2:15 AM 020 2:29 (specimen) EDT AM EDT Resulting Agency Comment Spec In Lab Gretchen Yoon MD CHEMISTRY ORDERABLES Performing Organization Address City/[facility]/ZIP [facility] [place] [address] (ABNORMAL) Hemoglobin A1c (11/30/2019 [...] Est Avg Gluc See note mg/dL [facility] LAB[facility] Comment: Estimated Average Glucose not [...] into estimated average glucose values. ??Diabetes Care 2008:31(8):3185-0076. Specimen Anatomical Collection Method Collection Time Receive d Time (Source) Location / / Volume Laterality Blood specimen 11/30/2019 2:15 AM 020 2:29 (specimen) EDT AM EDT Resulting Agency Comment Spec In Lab Gretchen Yoon MD CHEMISTRY ORDERABLES Performing Organization Address City/State/ZIP Code [place] [address] Lipid Panel (Reflex Direct LDL) (11/30/2019 2:15 AM EDT) athologist Signature Chol, Total 195 mg/dL [facility] LABORATORY Comment: Lower Risk: <200 mg/dL Average Risk: 200-239 mg/dL Higher Risk: >sn=425 mg/dL Triglycerides 93 mg/dL [facility] LABORATORY Comment: Average Risk/Lower Risk: <150 mg/dL Borderline High Risk: 150-199 mg/dL High Risk: 200-499 mg/dL Very High Risk: >jo=519 mg/dL HDL 32 mg/dL [facility] LABORATORY Comment: Males: ?? Higher Risk: <40 mg/dL Females: ?? HIgher Risk: <50 mg/dL LDL Cholesterol 144 mg/dL [facility] LABORATORY Comment: Lowest Risk: <100 mg/dL Lower Risk: 100-129 mg/dL Borderline High Risk: 130-159 mg/dL High Risk: 160-189 mg/dL Very High Risk: >mi=391 mg/dL Chol/HDL Ratio 6.1 ratio [facility] LABORATORY Lipid Interpretation See Note [facility] LABORATORY Comment: Lipid management should be guided by a p atient? s ASCVD risk, goals and preferences. ACC/AHA Guidelines recommend high intens ity statin if clinical ASCVD or LDL greater than or equal to 190 mg/dL. http://[employer].In[employer]ivioLink/MVQ-MRI-Wbgyekyut Adults aged 40-75 with LDL 70-189 mg/dL should have their 10 year ASCVD risk estimated with the ACC/AHA ASCVD risk es timator http://tools.acc.org/MCGXR-Olut-Osyxqynb r/ Statin should be discussed if risk [...] Address City/State/ZIP Code Phon e Number [address] (ABNORMAL) CK (11/29/2019 6:35 PM EDT) athologist Signature CK, Total 2,780 (H) 0 - 200 [facility] unit/L [facility] LABORATORY Specimen Anatomical Collection Method Collection Time Receive d Time (Source) Location / / Volume Laterality Blood specimen 11/29/2019 6:35 PM 020 6:53 (specimen) EDT PM EDT Resulting Agency Comment Spec In Lab Gretchen Yoon MD CHEMISTRY ORDERABLES Performing Organization Address City/[facility]/[place] [address] (ABNORMAL) Troponin (11/29/2019 6:35 PM EDT) athologist Signature Troponin-T 17.60 (H) 0.00 [facility] ng/mL [facility] [...] meets the diagnosis for a myocardial infarction (AL). Detection of a rise and/or fall of [...] additional sample may be indicated. Reference: Third Logan Definition of Myocardial Infarction. Journal of the [place] College of Cardiology 2012;60:1581-98 Specimen Anatomical Collection Method Collection Time Receive d Time (Source) Location / / Volume Laterality Blood specimen 11/29/2019 6:35 PM 020 6:53 (specimen) EDT PM EDT Resulting Agency Comment Spec In Lab Gretchen Yoon MD CHEMISTRY ORDERABLES Performing Organization Address City/State/ZIP Code Phon e Number [place] [id number]OS[address] LAB[address] Drive EKG 12 Lead (11/29/2019 3:58 PM EDT) [facility] gist Method Time Signature Ventricular rate 73 BPM MUSE SYSTEM Atrial Rate 73 BPM MUSE SYSTEM P-R Interval 152 ms MUSE SYSTEM QRS Duration 84 ms MUSE SYSTEM Q-T Interval 404 ms MUSE SYSTEM QTC Calculated 445 ms MUSE SYSTEM (Bezet) Calculated P [place] 50 degrees MUSE SYSTEM Calculated R [place] -4 degrees MUSE SYSTEM Calculated T [place] 19 degrees MUSE SYSTEM INTERPRETATION Sinus rhythm [...] Concepcion MD ECG ORDERABLES Performing Organization Address City/[facility]/ZIP Code Phon e Number MUSE SYSTEM XR Chest One View (11/29/2019 3:08 PM EDT) Anatomical Region Laterality Modality Chest N/A Digital Radiography Specimen (Source) Anatomical Location Collection Method / Collectio n Time Received Time / Laterality Volume Addenda Addendum by Estefani Hraris MD on 2019 5:11 PM EDT --------ADDENDUM [...] CLINICAL HISTORY: stemi (as entered by o [facility] provider in the order requisition) TECHNIQUE: [...] lung apex is excluded from the imaged [id number]. IMPRESSION: 1. ??New right internal jugular pulmonar [...] please contact th e number below. ? Impressions 11/29/2019 4:36 [...] lung apex is excluded from the imaged [id number]. Procedure Note Estefani Harris MD - 11/29/2019Formattin [...] lung apex is excluded from the imaged [id number]. IMPRESSION 1. New right internal jugular pulmonary [...] (ABNORMAL) Differential, Automated (11/29/2019 2:32 PM EDT) [facility] Method Time Signature Neutrophils % 83.8 % [facility] LABORATORY Neutr Abs (ANC) 12.12 (H) 1.70 - [facility] 6.10 [facility] x10(3)/[facility] LABORATORY Lymphocytes % 9.1 % [facility] LABORATORY Lymphocytes Abs 1.3 0.9 - 3.2 [facility] x10(3)/[facility] LABORATORY Monocytes % 6.2 % [facility] LABORATORY Monocyte Abs 0.9 0.3 - 0.9 [facility] x10(3)/[facility] LABORATORY Eosinophils % 0.0 % [facility] LABORATORY Eosinophils Abs 0.0 0.0 - 0.4 [facility] x10(3)/[facility] LABORATORY Basophils % 0.3 % [facility] LABORATORY Basophils Abs 0.0 0.0 - 0.1 [facility] x10(3)/[facility] LABORATORY Immature Gran % 0.60 % [facility] LABORATORY Comment: Immature granulocytes(IG's)percentage an d absolute count will include metamyelocytes, myelocytes, and promyelo cytes. Blood smears from CBCs yielding IG's will be scanned manually for ana nagy. If this scan disagrees with the automated IG or if promyelocytes are not ed, a manual differential will be performed. Pita Gran Abs 0.08 (H) 0.00 - 0.04 x10(3)/[facility] LABORATORY Specimen Anatomical Collection Method Collection Time Receive d Time (Source) Location / / Volume Laterality Blood specimen 11/29/2019 2:32 PM 020 2:55 (specimen) EDT PM EDT Resulting Agency Comment Spec In Lab Darrell Glasgow MD HEMATOLOGY ORDERABLES Performing Organization Address City/State/[place] [address] (ABNORMAL) Hemogram (11/29/2019 2:32 PM EDT) Analysis Performed At Patho logist Time Signature WBC 14.5 (H) 4.0 - 9.5 [facility] RBC 4.53 (L) 4.58 - [facility] DOV 5.54 [facility] x10(6)/[facility] LABORATORY Hemoglobin 13.1 (L) 13.7 - [facility] gm/dL [facility] LABORATORY Hematocrit 40.8 40.5 - [facility] DOV 48.5 % [facility] LABORATORY MCV 90.1 82.9 - [facility]1 [facility] LABORATORY MCH 28.9 27.5 - [facility] DOV 32.1 pg [facility] LABORATORY MCHC 32.1 32.0 - [facility] DOV 35.7 gm/dL [facility] LABORATORY Platelets 184 145 - 357 [facility] x10(3[facility] LAB[facility]ATORY RDWSD 47.8 (H) 36.0 - [facility] DOV 45.0 [facility] LABORATORY RDWCV 14.5 (H) 11.4 - [facility] DOV 13.8 % [facility] LABORATORY MPV 11.9 7.6 - 12.9 [facility] LABORATORY nRBC % Auto 0.0 % [facility] LABORATORY nRBC Abs Auto 0.000 0.000 - MELINA [place] 0.000 [facility] x10(3)/[facility] LABORATORY Specimen Anatomical Collection Method Collection Time Receive d Time (Source) Location / / Volume Laterality Blood specimen 11/29/2019 2:32 PM 020 2:55 (specimen) EDT PM EDT Resulting Agency Comment Spec In Lab Darrell Glasgow MD HEMATOLOGY ORDERABLES Performing Organization Address City/[facility]/ZIP Code Phon e Number [address] (ABNORMAL) CK (11/29/2019 2:32 PM EDT) athologist Signature CK, Total 3,282 (H) 0 - 200 [facility] [facility] unit/L [facility] LABORATORY Specimen Anatomical Collection Method Collection Time Receive d Time (Source) Location / / Volume Laterality Blood specimen 11/29/2019 2:32 PM 020 2:32 (specimen) EDT PM EDT Resulting Agency Comment Spec In Lab Gretchen Yoon MD CHEMISTRY ORDERABLES Performing Organization Address City/[facility]/[place] [address] (ABNORMAL) Troponin (11/29/2019 2:32 [...] meets the diagnosis for a myocardial infarction (AL). Detection of a rise and/or fall of [...] additional sample may be indicated. Reference: Third Logan Definition of Myocardial Infarction. Journal of the [employer] 2012;60:1581-98 Specimen Anatomical Collection Method Collection Time Receive d Time (Source) Location / / Volume Laterality Blood specimen 11/29/2019 2:32 PM 020 2:32 (specimen) EDT PM EDT Resulting Agency Comment Spec In Lab Gretchen Yoon MD CHEMISTRY ORDERABLES Performing Organization Address [facility] [place] [address] (ABNORMAL) APTT (11/29/2019 2:32 PM EDT) P athologist Signature PTT 114 25 - 37 [facility] (Critical) [facility] LABORATORY Comment: Critical Result called by [...] Yoon MD HEMATOLOGY ORDERABLES Performing Organization Address City/[facility]/[place] [address] (ABNORMAL) Prothrombin Time (11/29/2019 2:32 PM EDT) P athologist Signature PT 13.5 (H) 9.4 - 12.5 [facility] LABORATORY INR 1.2 [facility] LABORATORY Comment: An INR <2.0 indicates [...] City/State/[place] [address] (ABNORMAL) Hepatic Function Panel (11/29/2019 2:32 PM EDT) athologist Signature Total Protein 6.3 6.1 - 8.0 [facility] DOV gm/dL [facility] LABOR[facility]ORY Albumin 3.6 3.2 - 5.2 [facility] DOV gm/dL [facility] LABORATORY AST 257 (H) 0 - 39 [facility] DOV unit/L [facility] ALT 50 0 - 55 [facility] DOV unit/L [facility]ORATORY Alk Phos 84 40 - 130 [facility] DOV unit/L [facility] LAB[facility]ATORY Total 0.3 0.2 - 1.3 [facility] DOV Bilirubin mg/dL [facility] LAB[facility] Bili, Direct 0.1 0.0 - 0.3 [facility] DOV mg/dL [facility] LAB[facility] Specimen Anatomical Collection Method Collection Time Receive d Time (Source) Location / / Volume Laterality Blood specimen 11/29/2019 2:32 PM 020 2:32 (specimen) EDT PM EDT Resulting Agency Comment Spec In Lab Gretchen Yoon MD CHEMISTRY ORDERABLES Performing Organization Address City/State/[place] [address] (ABNORMAL) pro-Brain Natriuretic Peptide (11/29/2019 2:32 PM EDT) P athologist Signature ProBNP 272 (H) <=125 pg/mL [facility] LABORATORY Specimen Anatomical Collection Method Collection Time Receive d Time (Source) Location / / Volume Laterality Blood specimen 11/29/2019 2:32 PM 020 2:32 (specimen) EDT PM EDT Resulting Agency Comment Spec In Lab Gretchen Yoon MD CHEMISTRY ORDERABLES Performing Organization Address City/[facility]/ZIP Code Phon e Number [address] Magnesium (11/29/2019 2:32 PM EDT) athologist Signature Magnesium 0.76 0.69 - 1.07 [facility] mmol/L [facility]ORY Specimen Anatomical Collection Method Collection Time Receive d Time (Source) Location / / Volume Laterality Blood specimen 11/29/2019 2:32 PM 020 2:32 (specimen) EDT PM EDT Resulting Agency Comment Spec In Lab Gretchen Yoon MD CHEMISTRY ORDERABLES Performing Organization Address City/[facility] [place] [address] (ABNORMAL) Basic Metabolic Panel (non-fasting) (11/29/2019 2:32 PM EDT) athologist Signature Glucose Lvl 149 65 - 199 [facility] mg/dL [facility] [...] estions. Chloride 105 98 - 107 mmol/L [facility] LABOR[facility]ORY CO2 15 (L) 22 - 31 mmol/L [facility] Anion Gap 15 5 - 15 mmol/L [facility] LABOR[facility]ORY Calcium 8.0 (L) 8.5 - 10.5 mg/dL [facility] LAB[facility]ORY Estimated GFR 80 >=60 mL/min/1.73 m?? [facility] LAB[facility] Comment: The eGFR was calculated using the CKD-EP I equation. As with all creatinine based estimates of kidney function, eGFR values calculated with the CKD-EPI equation are not accurate in patients wi th acute kidney failure, extremes of body mass or the acutely ill. [email or web address] CITYnkf eGFR 93 >=60 mL/min/1.73 m?? [facility] LABOR[facility]ORY Comment: The eGFR was calculated using the CKD-EP I equation. As with all creatinine based estimates of kidney function, eGFR values calculated with the CKD-EPI equation are not accurate in patients wi th acute kidney failure, extremes of body mass or the acutely ill. [email or web address] [place] Specimen Anatomical Collection Method Collection Time Receive d Time (Source) Location / / Volume Laterality Blood specimen 11/29/2019 2:32 PM 020 2:32 (specimen) EDT PM EDT Resulting Agency Comment Spec In Lab Gretchen Yoon MD CHEMISTRY ORDERABLES Performing Organization Address City/State/ZIP Code Phon e Number [place] [id number] EKG 12 Lead (11/29/2019 11:38 AM EDT) [facility] gist Method Time Signature Ventricular rate 60 BPM MUSE SYSTEM Atrial Rate 60 BPM MUSE SYSTEM P-R Interval 140 ms MUSE SYSTEM QRS Duration 86 ms MUSE SYSTEM Q-T Interval 474 ms MUSE SYSTEM QTC Calculated 474 ms MUSE SYSTEM (Bezet) Calculated P [place] 48 degrees MUSE SYSTEM Calculated R [place] 14 degrees MUSE SYSTEM Calculated T [place] 58 degrees MUSE SYSTEM INTERPRETATION Normal sinus [...] ? Procedure Date: 11/29/2019 ? A #: [id number] ? Primary Physician: Gretchen Yoon ? Case #: [id number] ? File Name: [id number] ? Catheterization Order Number: [id number] ? [facility] ? Final Report [place], [place] ? Patient Name: ? Angel Luis Salinas ? ID#: ?[id number] ? : ?1945 ? Procedure Date: ? [...] performed on an emergent basis. ? History ?AngelL uis Salinas is a 74 year old [...] procedure was Emergent. The indication for ?the assistant laboratory director visit is ACS less than [...] dose administered prior to arrival in the assistant laboratory director. ?Recommended anti-platelet/anti- thrombotic regimen: ?Continue aspirin 81 mg daily fo r indefinitely. ?Continue clopidogrel 75 mg marco a y for 12 months then stop. ?These recommendations are made at the time of the intervention. Patient ?and provider preferences or a c hanging clinical situation may require ?modification of this regimen. C onsult [facility] Interventional Cardiology for [...] Luis Salinas Procedure Date: 11/29/2019 A #: [id number] Primary Physician: Gretchen Yoon Case #: [id number] File Name: [id number] Catheterization Order Number: [id number] [facility] Final Report [place], [place] Patient Name: Angel Luis Salinas ID#: [id number] : 1945 Procedure Date: November 29, [...] was designated as ASA Class IV. The [facility] clinical frailty scale is 4: Vulnerable. Diagnostic Tests: Electrocardiography: EKG was assessed by ECG. EKG was Abnorm al. EKG showed ST Deviation >= 0.5 mm. Medications Prior to Procedure: Aspirin. Indications for Diagnostic Cath: The priority of the diagnostic procedur e was Emergent. The indication for the assistant laboratory director visit is ACS less than [...] this intervention was 10%. The final TI AL flow was 2. Distal 90% Thrombectomy and [...] this intervention was 10%. The final TI AL flow was 2. Vascular Access: Vascular Access [...] administered prior t o arrival in the assistant laboratory director. Recommended anti-platelet/anti-thrombot ic regimen: Continue aspirin 81 mg daily for indefi nitely. Continue clopidogrel 75 mg daily for 12 months then stop. These recommendations are made at the t loyda of the intervention. Patient and provider preferences or a changing clinical situation may require modification of this regimen. Consult [facility] Interventional Cardiology for questions. Conclusions: * Two [...] Signature POC pH 7.33 (L) 7.35 - [facility] 7.45 [facility] LABOR[facility]ORY POC PCO2 33 (L) 35 - 45 [facility] mmHg [facility] LABOR[facility]ORY POC PO2 56 (L) 85 - 104 [facility] LABORATORY POC Base Excess -8.0 (L) -3.0 - 3.[address] [facility] K mmol/L [facility] LABORATORY POC HCO3 17.4 (L) 20.0 - [facility] 26.0 [facility] POC Sodium 137 135 - 145 [facility] mmol/L [facility] LABORATORY POC Potassium 3.6 3.5 - 5.0 [facility] mmol/L [facility] LABORATORY POC Ionized Ca 1.15 1.15 - [facility] 1.33 [facility] POC Hematocrit 37.0 (L) 40.0 - [facility] 51.0 % [facility] LABOR[facility]ORY POC Calc Hgb 12.6 (L) 13.7 - [facility] 17.5 gm/dL [facility] [...] Organization Address City/State/[place] [address] EKG 12 Lead (11/29/2019 9:01 AM EDT) Component Value Ref Range Test Analysis Performed Pathologis t Method Time At Signature Ventricular rate 80 BPM MUSE SYSTEM Atrial Rate 79 BPM MUSE SYSTEM QRS Duration 94 ms MUSE SYSTEM Q-T Interval 436 ms MUSE SYSTEM QTC Calculated 502 ms MUSE SYSTEM (Bezet) Calculated R [place] 54 degrees MUSE SYSTEM Calculated T [place] 80 degrees MUSE SYSTEM INTERPRETATION Normal sinus rhythm MUSE SYSTEM Inferior infarct , possibly acute Prolonged QT * ACUTE AL ?? 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
Administer for serum potassium (mMol/L) of 3.9 - 4 See instructions for Potassium Protocol in online policies.
Routine Or potassium chloride ER (K-Dur/Klor-Con) tablet 40 mEqJump to med 40 mEq, Oral, EVERY 4 HOURS PRN, Startin g [place] 11/30/19 at 2017, Until Sun12/08/19 at 1811, hypokalemia
Administer for serum potassium (mMol/L) of 3.6 - 3.8 See instructions for Potassium Protocol in online policies.
Routine documented in this encounter Care Teams Diagrammer Relationship Specialty Start Date End Date France Lam MD PCP - General 05/02/13 02/04/20 [address] [place] [address] documented as of this encounter
--- OUTSIDE RECORDS SUMMARY | 2022-05-18 11:06 | XMS_ITS | Continuity of Care Document ---
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 Z23 Encounter for [place] immunizationwith CBO C Provider Comments: Encounter for Immunization Diagnosis: ICD-10-CM Active Diagnosis ST. H90.3 Sensorineural [facility] hearing loss, CBOC bilateralwith Provider Comments: Asymmetrical sensorineural hearing loss (SNOMED CT [id number]) Diagnosis: ICD-10-CM Active Diagnosis ST. I25.10 Athscl heart [facility] disease of [place] CB OC coronary artery w/o ang pctrswith Provider Comments: Atherosclerotic Heart Disease of [place] Coronary Artery without Angina Pectoris Medications Combined list of outpatient medications from Department of Defense and Veterans Affairs facilities. Medications provided include 1) outpatient medications from the last 15 months, and 2) patient-reported medications. Medication Details Route Status Patient Prescription Prescription Last Ordering Order Source Instructions Expires Number Dispense Provider Date Date AMIODARONE TAKE ONE ORAL ACTIVE 02/14/2023 [id number] JORGE A LOZA HCL TABLET 2 N 2021 [place] (PACERONE) BY MOUTH [place] 200MG TAB EVERY [facility] DAY AFTER ONE MONTH OF TWICE DAILY DOSING THROUGH 02/26/22 APIXABAN TAKE ONE ORAL ACTIVE 2023 [id number] WILLIE LOZA 01/20/ WHITE 5MG TAB TABLET 2 N 2021 [place] BY MOUTH [place] TWICE A [facility] DAY TO HELP PREVENT BLOOD CLOTS (ANTICOA GULATION CCNRX) APIXABAN TAKE ONE ORAL 12/21/2021 [id number] GIANGR ECO 12/30/ WHITE 5MG TAB TABLET [...] DAY FUROSEMIDE TAKE ONE ORAL ACTIVE 12/17/2022 [id number] JORGE A LOZA 12/21/ WHITE 20MG TAB TABLET 2 N 2021 [place] BY MOUTH [place] EVERY [facility] OTHER DAY TO REMOVE FLUID/CO NTROL BLOOD PRESSURE FUROSEMIDE TAKE ONE ORAL 11/12/2021 [id number] SJ PATTON,M 11/12/ ST. 20MG TAB TABLET 2 ICHAEL 2020 [place] BY MOUTH RY CBOC EVERY OTHER DAY TO REMOVE FLUID/CO NTROL BLOOD PRESSURE LISINOPRIL TAKE ONE ORAL ACTIVE 12/17/2022 [id number] JORGE A LOZA 12/21/ WHITE 5MG TAB TABLET 2 N 2021 [place] BY MOUTH [place] EVERY [facility] DAY TO CONTROL BLOOD PRESSURE LISINOPRIL TAKE ONE ORAL DISCONT 06/08/2022 [id number] JORGE A LOZA 06/15/ WHITE 5MG TAB TABLET INUED 2 N 2020 [place] BY MOUTH [place] EVERY [facility] DAY TO CONTROL BLOOD PRESSURE LISINOPRIL TAKE ONE ORAL 06/03/2021 [id number] STANL EY,M 06/08/ ST. 5MG TAB TABLET 1 ICHAEL 2019 [place] BY MOUTH RY CBOC EVERY DAY TO CONTROL BLOOD PRESSURE METOPROLOL TAKE ONE ORAL ACTIVE 02/14/2023 [id number] JORGE A LOZA 02/15/ WHITE SUCCINATE TABLET 2 N 2021 [place] 25MG TAB,SA BY MOUTH [place] EVERY [facility] DAY FOR BLOOD PRESSURE /HEART METOPROLOL TAKE ONE ORAL DISCONT 02/23/2022 [id number] Mery BLEVINS 02/28/ ST. SUCCINATE TABLET INUED 2 ICHAEL 2020 [place] 25MG TAB,SA BY MOUTH RY CB OC EVERY DAY FOR BLOOD PRESSURE /HEART NITROGLYCER TAKE ONE SUBLIN 02/23/2022 [id number] Mery LR 02/28/ ST. 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 RECOMBINANT 2020 ed [...] result by 1.210 Tests performed on [employer] (405) SN:[id number] [place] eGFR E] IN SERUM Ordering Pr ovider: [place] U[place]ÑA [facility] PANEL OR PLASMA Report Releas ed Date/Time: Feb 24, 2021 11:18 AM Reporting Lab: [place] [facility] [address] [facility] [address] Performing Lab: [place] [facility] [address] [facility] [address] CREATININ GLOMERULAR 44 60 04/28 L Specimen Ty pe: PLASMA WHITE E WITH FILTRATION /2020 Comment: For eGFR: Race unknown, if multiply result by 1.210 Tests performed on [employer] (405) SN:[id number] [place] eGFR RATE/1.73 Ordering Prov ider: [place] [facility] PANEL SQ Report Released Date/Time: Feb 24, 2021 11:18 AM M.PREDICTED Reporting L ab: [place] [facility] [VOLUME [address] [place] [facility] [place] [address] RATE/AREA] Performing L ab: [place] [facility] IN SERUM OR [address] [facility] [place] [address] PLASMA BY CREATININE- BASED FORMULA (MDRD) CBC NO LEUKOCYTES 5.8 4.5 - 11.0 04/28 Specimen T ype: BLOOD WHITE DIFF [#/VOLUME] /2020 No comment en tered. [place] IN BLOOD BY Ordering Pr ovider: [place] [facility] AUTOMATED Report Rele ed Date/Time: Feb 24, 2021 11:18 AM COUNT Reporting Lab: [place] [facility] [address] [place] [facility] [place] [address] Performing Lab: [place] [facility] [address] [place] [facility] [place] [address] CBC NO ERYTHROCYTE 4.61 4.23 - 04/28 Specimen Typ e: BLOOD WHITE DIFF S 5.66 /2020 No comment enter ed. [place] [#/VOLUME] Ordering Pro vider: [place] [facility] IN BLOOD BY Report Rele ased Date/Time: Feb 24, 2021 11:18 AM AUTOMATED Reporting Lab : [place] [facility] COUNT [address] [place] [facility] [place] [address] Performing Lab: [place] [facility] [address] [place] [facility] [place] [address] CBC NO HEMOGLOBIN 13.9 12.8 - 17 04/28 Specimen Ty pe: BLOOD WHITE DIFF [MASS/VOLUM /2020 No comment e ntered. [place] E] IN BLOOD Ordering Pr ovider: MILTON UREÑAOC Report Released Date/Time: Feb 24, 2021 11:18 AM Reporting Lab: [place] [facility] [address] [place] [facility] [place] [address] Performing Lab: [place] [facility] [address] [place] [facility] [place] [address] CBC NO HEMATOCRIT 43.6 39.2 - 04/28 Specimen Type : BLOOD WHITE DIFF [VOLUME 50.4 No comment enter ed. [place] FRACTION] Ordering Prov ider: [place] U[place] OF BLOOD BY Report Rele ased Date/Time: Feb 24, 2021 11:18 AM AUTOMATED Reporting Lab : [place] [facility] COUNT [address] [place] [facility] [place] [address] Performing Lab: [place] [facility] [address] [place] [facility] [place] [address] CBC NO MCV 94.6 82 - 99 04/28 Specimen Type: B LOOD WHITE DIFF [ENTITIC /2020 No comment ente red. [place] VOLUME] BY Ordering Pro vider: MILTON UREÑAOC AUTOMATED Report Releas ed Date/Time: Feb 24, 2021 11:18 AM COUNT Reporting Lab: [place] [facility] [address] [place] [facility] [place] [address] Performing Lab: [place] [facility] [address] [place] [facility] [place] [address] CBC NO MCH 30.2 26.2 - 04/28 Specimen Type: B LOOD WHITE DIFF [ENTITIC 32.6 /2020 No comment ente red. [place] MASS] BY Ordering Provi adrian: MILTON UREÑA AUTOMATED Report Releas ed Date/Time: Feb 24, 2021 11:18 AM COUNT Reporting Lab: [place] [facility] [address] [place] [facility] [place] [address] Performing Lab: [place] [facility] [address] [place] [facility] [place] [address] CBC NO MCHC 31.9 30.8 - 04/28 Specimen Type: B LOOD WHITE DIFF [MASS/VOLUM 35.1 /2020 No comment e ntered. [place] E] BY Ordering Provid er: MILTON UREÑA AUTOMATED Report Releas ed Date/Time: Feb 24, 2021 11:18 AM COUNT Reporting Lab: [place] [facility] [address] [place] [facility] [place] [address] Performing Lab: [place] [facility] [address] [place] [facility] [place] [address] CBC NO PLATELETS 141 140 - 360 04/28 Specimen Typ e: BLOOD WHITE DIFF [#/VOLUME] /2020 No comment en tered. [place] IN BLOOD BY Ordering Pr ovider: MILTON UREÑA AUTOMATED Report Releas ed Date/Time: Feb 24, 2021 11:18 AM COUNT Reporting Lab: [place] [facility] [address] [place] [facility] [place] [address] Performing Lab: [place] [facility] [address] [place] [facility] [place] [address] CBC NO PLATELET 12.1 9.2 - 12.4 04/28 Specimen Typ e: BLOOD WHITE DIFF MEAN VOLUME /2020 No comment e ntered. [place] [ENTITIC Ordering Provi adrian: MILTON UREÑAOC VOLUME] IN Report Relea sed Date/Time: Feb 24, 2021 11:18 AM BLOOD BY Reporting Lab: [place] [facility] AUTOMATED [address] [facility] [place] [address] COUNT Performing Lab: [place] [facility] [address] [place] [facility] [place] [address] CBC NO ERYTHROCYTE 15.0 12.0 - 04/28 Specimen Typ e: BLOOD WHITE DIFF DISTRIBUTIO 16.0 /2020 No comment e ntered. [place] N WIDTH Ordering Provid er: MILTON UREÑAOC [RATIO] BY Report Relea sed Date/Time: Feb 24, 2021 11:18 AM AUTOMATED Reporting Lab : [place] [facility] COUNT [address] [place] [facility] [place] [address] Performing Lab: [place] [facility] [address] [place] [facility] [place] [address] CREATININ CREATININE 1.37 0.5 - 1.5 02/22 Specimen Type: PLASMA WHITE E WITH [MASS/VOLUM /2020 Comment: Fo r eGFR: Race unknown, if multiply result by 1.210 Tests performed on [employer] (405) SN:[id number] [place] eGFR E] IN SERUM Ordering Pr ovider: [place] UREÑ[facility] PANEL OR PLASMA Report Releas ed Date/Time: Dec 20, 2020 02:24 PM Reporting Lab: [place] [facility] [address] [place] [facility] [place] [address] Performing Lab: [place] [facility] [address] [place] [facility] [place] [address] CREATININ GLOMERULAR 51 60 02/22 L Specimen Ty pe: PLASMA WHITE E WITH FILTRATION /2020 Comment: For eGFR: Race unknown, if multiply result by 1.210 Tests performed on [employer] (405) SN:[id number] [place] eGFR RATE/1.73 Ordering Prov ider: [place] UREÑ[facility] PANEL SQ Report Released Date/Time: Dec 20, 2020 02:24 PM M.PREDICTED Reporting L ab: [place] [facility] [VOLUME [address] [place] [facility] [place] [address] RATE/AREA] Performing L ab: [place] [facility] IN SERUM OR [address] [facility] [place] [address] PLASMA BY CREATININE- BASED FORMULA (MDRD) CBC NO LEUKOCYTES 6.8 4.5 - 11.0 02/22 Specimen T ype: BLOOD WHITE DIFF [#/VOLUME] /2020 No comment en tered. [place] IN BLOOD BY Ordering Pr ovider: [facility] AUTOMATED Report Releas ed Date/Time: Dec 20, 2020 02:24 PM COUNT Reporting Lab: [facility] [facility] [address] [facility] [address] Performing Lab: [place] [facility] [address] [place] [facility] [place] [address] CBC NO ERYTHROCYTE 5.03 4.23 - 08 Specimen Typ e: BLOOD WHITE DIFF S 5.66 /2020 No comment enter ed. [place] [#/VOLUME] Ordering Pro vider: [place] UREÑ[facility] IN BLOOD BY Report Rele ased Date/Time: Dec 20, 2020 02:24 PM AUTOMATED Reporting Lab : [place] [facility] COUNT [address] [facility] [address] Performing Lab: [place] [facility] [address] [facility] [address] CBC NO HEMOGLOBIN 14.9 12.8 - 17 02/22 Specimen Ty pe: BLOOD WHITE DIFF [MASS/VOLUM /2020 No comment e ntered. [place] E] IN BLOOD Ordering Pr ovider: MILTON UERÑA Report Released Date/Time: Dec 20, 2020 02:24 PM Reporting Lab: [place] [facility] [address] [place] [facility] [place] [address] Performing Lab: [place] [facility] [address] [place] [facility] [place] [address] CBC NO HEMATOCRIT 46.7 39.2 - 02/22 Specimen Type : BLOOD WHITE DIFF [VOLUME 50.4 No comment enter ed. [place] FRACTION] Ordering Prov ider: MILTON UREÑAOC OF BLOOD BY Report Rele ased Date/Time: Dec 20, 2020 02:24 PM AUTOMATED Reporting Lab : [place] [facility] COUNT [address] [place] [facility] [place] [address] Performing Lab: [place] [facility] [address] [place] [facility] [place] [address] CBC NO MCV 92.8 82 - 99 02/22 Specimen Type: B LOOD WHITE DIFF [ENTITIC /2020 No comment ente red. [place] VOLUME] BY Ordering Pro vider: MIL[place] UREÑAOC AUTOMATED Report Releas ed Date/Time: Dec 20, 2020 02:24 PM COUNT Reporting Lab: [place] [facility] [address] [facility] [address] Performing Lab: [place] [facility] [address] [facility] [address] CBC NO MCH 29.6 26.2 - 08 Specimen Type: B LOOD WHITE DIFF [ENTITIC 32.6 /2020 No comment ente red. [place] MASS] BY Ordering Provi adrian: MILTON UREÑA AUTOMATED Report Releas ed Date/Time: Dec 20, 2020 02:24 PM COUNT Reporting Lab: [place] [facility] [address] [facility] [address] Performing Lab: [place] [facility] [address] [facility] [address] CBC NO MCHC 31.9 30.8 - 02/22 Specimen Type: B LOOD WHITE DIFF [MASS/VOLUM 35.1 /2020 No comment e ntered. [place] E] BY Ordering Provid er: MILTON UREÑA AUTOMATED Report Releas ed Date/Time: Dec 20, 2020 02:24 PM COUNT Reporting Lab: [facility] [facility] [address] [facility] [address] Performing Lab: [place] [facility] [address] [facility] [address] CBC NO PLATELETS 159 140 - 360 08 Specimen Typ e: BLOOD WHITE DIFF [#/VOLUME] /2020 No comment en tered. [place] IN BLOOD BY Ordering Pr ovider: MILTON UREÑA AUTOMATED Report Releas ed Date/Time: Dec 20, 2020 02:24 PM COUNT Reporting Lab: [place] [facility] [address] [facility] [address] Performing Lab : [place] [facility] [address] [facility] [address] CBC NO PLATELET 13.0 9.2 - 12.4 08/24 H Specimen Typ e: BLOOD WHITE DIFF MEAN VOLUME /2020 No comment e ntered. [place] [ENTITIC Ordering Provi adrian: MILTON UREÑA VOLUME] IN Report Relea sed Date/Time: Dec 20, 2020 02:24 PM BLOOD BY Reporting Lab: [facility] [address] [facility] [address] COUNT Performing Lab[facility] [address] [facility] [address] CBC NO ERYTHROCYTE 14.6 12.0 - 0824 Specimen Typ e: BLOOD WHITE DIFF DISTRIBUTIO 16.0 No comment e ntered. [place] N WIDTH Ordering Provid er: [facility] [RATIO] BY Report Relea sed Date/Time: Dec 20, 2020 02:24 PM AUTOMATED Reporting Lab : [facility] COUNT [address] [facility] [address] Performing Lab: [facility] [address] [facility] [address] P4 UREA 20 7 - 25 08 Specimen Type: P LASMA ST. GLU,BUN,C NITROGEN /2020 Comment: For eGFR: Race unknown, if multiply result by 1.210 Tests performed on [employer] (405) SN:[id number] IVORY BECKETT [MASS/VOLUM Ordering Provider: GRETCHEN PEREZ CA E] IN SERUM Report Rele ased Date/Time: Feb 22, 2021 10:13 AM OR PLASMA Reporting Lab : [facility] [address] [facility] [address] Performing Lab: [facility] [address] [facility] [address] P4 SODIUM 133 135 - 145 08/24 L Specimen Type: PLASMA ST. GLU,BUN,C [MOLES/VOLU /2020 Comment: For eGFR: Race unknown, if multiply result by 1.210 Tests performed on [employer] (405) SN:[id number] IVORY BECKETT ME] IN Ordering Prov ider: GRETCHEN PEREZ CA SERUM OR Report Release d Date/Time: Feb 22, 2021 10:13 AM PLASMA Reporting Lab: [facility] [address] [facility] [address] Per[facility]: [facility] [address] [facility] [address] P4 POTASSIUM 4.5 3.5 - 5.0 02/22 Specimen Typ e: PLASMA ST. GLU,BUN,C [MOLES/VOLU /2020 Comment: For eGFR: Race unknown, if multiply result by 1.210 Tests performed on [employer] (405) SN:[id number] IVORY BECKETT [place]] IN Ordering Prov ider: GRETCHEN PERZE CA SERUM OR Report Release d Date/Time: Feb 22, 2021 10:13 AM PLASMA Reporting Lab: [facility] [address] [place] [facility] [place] [address] Performing Lab: [facility] [address] [place] [facility] [place] [address] P4 CHLORIDE 102 100 - 110 02/22 Specimen Type : PLASMA ST. GLU,BUN,C [MOLES/VOLU /2020 Comment: For eGFR: Race unknown, if multiply result by 1.210 Tests performed on [employer] (405) SN:[id number] IVORY BECKETT LA] IN Ordering Prov ider: GRETCHEN PEREZ CA SERUM OR Report Release d Date/Time: Feb 22, 2021 10:13 AM PLASMA Reporting Lab: [facility] [address] [place] [facility] [place] [address] Performing Lab: [facility] [address] [place] [facility] [place] [address] P4 CARBON 21 20 - 30 02/22 Specimen Type: P LASMA ST. GLU,BUN,C DIOXIDE, /2020 Comment: For eGFR: Race unknown, if multiply result by 1.210 Tests performed on [employer] (405) SN:[id number] IVORY BECKETT [facility] Ordering Prov ider: GRETCHEN PEREZ S,CA [MOLES/VOLU Report Rele ased Date/Time: Feb 22, 2021 10:13 AM LA] IN Reporting Lab: [facility] SERUM OR [address] [place] [facility] [place] [facility] [place] [address] PLASMA Performing Lab: [facility] [address] [place] [facility] [place] [address] P4 ANION GAP 10 4 - 16 02/22 Specimen Type: PLASMA ST. GLU,BUN,C IN SERUM OR /2020 Comment: For eGFR: Race unknown, if multiply result by 1.210 Tests performed on [employer] (405) SN:[id number] MARCELA NYELYTE PLASMA Ordering Prov ider: GRETCHEN PEREZ CA Report Released Date/Time: Feb 22, 2021 10:13 AM Reporting Lab: [facility] [address] [facility] [address] [facility]forming [facility]: [facility] [address] [facility] [address] P4 GLUCOSE 106 65 - 100 08/24 H Specimen Type: PLASMA ST. GLU,BUN,C [MASS/VOLUM /2020 Comment: For eGFR: Race unknown, if multiply result by 1.210 Tests performed on [employer] (405) SN:[id number] MARCELA LOPEZATLYTE E] IN SERUM Ordering Provider: GRETCHEN PEREZ CA OR PLASMA Report Releas ed Date/Time: Feb 22, 2021 10:13 AM Reporting Lab: [facility] [address] [facility] [address] Performing Lab: [facility] [address] [facility] [address] P4 CREATININE 1.37 0.5 - 1.5 02/22 Specimen Ty pe: PLASMA ST. GLU,BUN,C [MASS/VOLUM /2020 Comment: For eGFR: Race unknown, if multiply result by 1.210 Tests performed on [employer] (405) SN:[id number] MARCELA NYELYTE E] IN SERUM Ordering Provider: GRETCHEN PEREZ CA OR PLASMA Report Releas ed Date/Time: Feb 22, 2021 10:13 AM Reporting Lab: [facility] [address] [facility] [address] Performing Lab: [facility] [address] [facility] [address] P4 CALCIUM 9.6 8.5 - 10.5 02/22 Specimen Type : PLASMA ST. GLU,BUN,C [MASS/VOLUM /2020 Comment: For eGFR: Race unknown, if multiply result by 1.210 Tests performed on [employer] (405) SN:[id number] MARCELA NYELYTE E] IN SERUM Ordering Provider: ANA,GRETCHEN CBOC S,CA OR PLASMA Report Releas ed Date/Time: Feb 22, 2021 10:13 AM Reporting Lab: [facility] [address] [facility] [address] Performing Lab: [place] [facility] [address] [facility] [address] P4 GLOMERULAR 51 60 02/22 L Specimen Type : PLASMA ST. GLU,BUN,C FILTRATION /2020 Comment: F or eGFR: Race unknown, if multiply result by 1.210 Tests performed on [employer] (405) SN:[id number] MARCELA REAT,LYTE RATE/1.73 Ordering Pr ovider: GRETCHEN PEREZ CBOC S,CA SQ Report Released Date/Time: Feb 22, 2021 10:13 AM M.PREDICTED Reporting L ab: [facility] [place] [facility] [VOLUME [address] [facility] [address] RATE/AREA] Performing L ab: [facility] IN SERUM OR [address] [facility] [address] PLASMA BY CREATININE- BASED FORMULA (MDRD) LIVER PROTEIN 8.0 6.0 - 8.5 02/22 Specimen Type: PLASMA ST. PROFILE [MASS/VOLUM /2020 Comment: Fo r eGFR: Race unknown, if multiply result by 1.210 Tests performed on [employer] (405) SN:[id number] MARCELA Zhao] IN SERUM Ordering Pr ovider: GRETCHEN PEREZ CBOC OR PLASMA Report Releas ed Date/Time: Feb 22, 2021 10:13 AM Reporting Lab: [facility] [address] [facility] [address] Performing Lab: [facility] [facility] [address] [facility] [address] LIVER ALBUMIN 4.0 3.2 - 5.0 02/22 Specimen Type: PLASMA ST. PROFILE [MASS/VOLUM /2020 Comment: Fo r eGFR: Race unknown, if multiply result by 1.210 Tests performed on [employer] (405) SN:[id number] MARCELA E] IN SERUM Ordering Pr ovider: GRETCHEN PEREZ OR PLASMA Report Releas ed Date/Time: Feb 22, 2021 10:13 AM Reporting Lab: [facility] [address] [facility] [address] Performing Lab: [facility] [address] [place] [facility] [place] [address] LIVER BILIRUBIN.T 0.6 0.2 - 1.2 02/22 Specimen T ype: PLASMA ST. PROFILE OTAL /2020 Comment: For eG FR: Race unknown, if multiply result by 1.210 Tests performed on [employer] (405) SN:[id number] [facility] [MASS/VOLUM Ordering Pr ovider: GRETCHEN PEREZ E] IN SERUM Report Rele ased Date/Time: Feb 22, 2021 10:13 AM OR PLASMA Reporting Lab : [facility] [address] [facility] [address] Performing [facility]: [facility] [address] [facility] [address] LIVER ALKALINE 75 40 - 150 02/22 Specimen Type: PLASMA ST. PROFILE PHOSPHATASE /2020 Comment: Fo r eGFR: Race unknown, if multiply result by 1.210 Tests performed on [employer] (405) SN:[id number] [facility] [ENZYMATIC Ordering Pro vider: GRETCHEN PEREZ ACTIVITY/VO Report Rele ased Date/Time: Feb 22, 2021 10:13 AM LUME] IN Reporting Lab: [facility] SER[facility] OR [address] [facility] [address] PLASMA Performing Lab: [facility] [address] [place] [facility] [place] [address] LIVER ALANINE 16 7 - 52 02/22 Specimen Type: P LASMA ST. PROFILE AMINOTRANSF Comment: Fo r eGFR: Race unknown, if multiply result by 1.210 Tests performed on [employer] (405) SN:[id number] [facility] ERASE Ordering Provid er: GRETCHEN PEREZ [ENZYMATIC Report Relea sed Date/Time: Feb 22, 2021 10:13 AM ACTIVITY/VO Reporting L ab: [facility] LUME] IN [address] [facility] [address] SERUM OR Performing Lab : [facility] [address] [place] [facility] [place] [address] LIVER ASPARTATE 17 5 - 34 02/22 Specimen Type: PLASMA ST. PROFILE AMINOTRANSF Comment: Fo r eGFR: Race unknown, if multiply result by 1.210 Tests performed on [employer] (405) SN:[id number] [facility] ERASE Ordering Provid er: GRETCHEN PEREZ [ENZYMATIC Report Relea sed Date/Time: Feb 22, 2021 10:13 AM ACTIVITY/VO Reporting L ab: [facility] LUME] IN [address] [facility] [address] SERUM OR Performing Lab : [facility] PLASMA [address] [facility] [address] LIPOPROTE CHOLESTEROL 361 0 - 199 08/24 H Specimen T ype: PLASMA ST. IN [MASS/VOLUM /2020 Comment: Fo r eGFR: Race unknown, if multiply result by 1.210 Tests performed on [employer] (405) SN:[id number] [facility] CHOLESTER E] IN SERUM Ordering Provider: GRETCHEN PEREZ OL FRACT. OR PLASMA Report Rele ased Date/Time: Feb 22, 2021 10:13 AM PANEL Reporting Lab: [facility] [address] [facility] [address] [facility]forming Lab: [facility] [address] [facility] [address] LIPOPROTE TRIGLYCERID 170 0 - 149 08/24 H Specimen T ype: PLASMA ST. IN E Comment: For eG FR: Race unknown, if multiply result by 1.210 Tests performed on [employer] (405) [id number] [facility] CHOLESTER [MASS/VOLUM Ordering Provider: GRETCHEN PEREZ OL FRACT. E] IN SERUM Report Re leased Date/Time: Feb 22, 2021 10:13 AM PANEL OR PLASMA Reporting Lab : [facility] [address] [facility] [address] Performing [facility]: [facility] [address] [facility] [address] LIPOPROTE CHOLESTEROL 46 40 08/24 Specimen T ype: PLASMA ST. IN IN HDL /2020 Comment: For eG FR: Race unknown, if multiply result by 1.210 Tests performed on [employer] (405) [id number] [facility] CHOLESTER [MASS/VOLUM Ordering Provider: GRETCHEN PEREZ OL FRACT. E] IN SERUM Report Re leased Date/Time: Feb 22, 2021 10:13 AM PANEL OR PLASMA Reporting Lab : [facility] [address] [facility] [address] Performing Lab: [facility] [address] [facility] [address] LIPOPROTE CHOLESTEROL 281 0 - 129 08/24 H Specimen T ype: PLASMA ST. IN IN LDL /2020 Comment: For eG FR: Race unknown, if multiply result by 1.210 Tests performed on [employer] (405) SN:[id number] MARCELA CHOLESTER [MASS/VOLUM Ordering Provider: GRETCHEN PEREZ OL FRACT. E] IN SERUM Report Re leased Date/Time: Feb 22, 2021 10:13 AM PANEL OR PLASMA Reporting Lab : [facility] BY [address] [facility] [address] CALCULATION Performing Lab: [facility] [address] [facility] [address] VITAMIN COBALAMIN 312 200 - 900 08/24 Specimen Typ e: SERUM ST. B-12 (VITAMIN /2020 Comment: Tests performed on [employer] (405) SN:[id number] MARCELA B12) Ordering Provid er: GRETCHEN PEREZ [MASS/VOLUM Report Rele ased Date/Time: Feb 22, 2021 10:13 AM E] IN SERUM Reporting L ab: [facility] OR PLASMA [address] [facility] [address] Performing Lab: [facility] [address] [facility] [address] GLYCOHEMO HEMOGLOBIN 6.2 4.0 - 5.6 08/24 H Specimen Type: BLOOD ST. GLOBIN A1C/HEMOGLO /2020 Comment: Te sts performed on [employer] (405) SN:[id number] MARCELA (A1C BIN.TOTAL Ordering Prov ider: GRETCHEN PEREZ ONLY) IN BLOOD BY Report Rele ased Date/Time: Feb 22, 2021 10:13 AM HPLC Reporting Lab: [facility] [address] [facility] [address] Performing Lab: [facility] [address] [facility] [address] VIT D CALCIFEROL 40.8 20 - 50 08/24 Specimen Type : SERUM ST. 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 Location Location Encounter Encounter Reason Attending ADM DC Stat us Disposition Source Details Type Number For Provider Date Date Visit Outpatient [id number] 11/11 WHIT E Encounter [id number] /2020 [facility] 01779-4.40 11/11 WH[facility] Encounter [id number] /2020 [facility] Out[facility] 59389-5.40 11/11 WH[facility] E Encounter [id number] /2020 [facility] 64235-8.40 12/13 [facility] E En[facility] [id number] /[facility] 94508-0.40 Diagnos ADELITA, 12/20 W JIMBO PHONE CALL [id number] is: MILTON B /2020 R IVER 11-20 MIN ICD-10- [facility]CT [facility] Z79.01 [facility] (curren t) use of anticoa gulants
wi th Provide r Comment s: Long-te rm current use of anticoa gulant (SCT 4586628 03) Outpatient [id number] 02/22 WHIT E Encounter [id number] /2020 [facility] OFF[facility]P 30996-0.40 Diagnos SÁNCHEZ PEREZ 02/22 ST. 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
wi Provide r Comment s: Long-te rm current use of anticoa gulant (SCT 0686598 03) Outpatient 40 03/02 WH[facility] E Encounter [id number] [facility] COMPREHENS 60394-5.40 Diagnos RADHA, 04/12 ST. ELA [id number] is: HLEY [facility] HEARING 39 ICD-10- RY [facility] TEST CM H90.3 Sensori neural hearing loss, bilater al
with Provide r Comment s: Asymmet rical sensori neural hearing loss (SNOMED CT 7525280 09) Outpatient 04/15 WHIT E Encounter [id number] /2021 [facility] OFFICE O/P 58081-7.40 Diagnos PETTIGLIO, 04/28 ST. EST [id number] is: SAMMY A JOHNSB U MINIMAL 02 ICD-10- RY CBOC PROB CM Z23 Encount er for immuniz ation<b r/>with Provide r Comment s: Encount er for Immuniz ation HC PRO 70893-5.40 Diagnos NICOLA LEONE 04/29 W JIMBO PHONE CALL [id number] is: AN RIVE R 11-20 MIN ICD-10- [facility] Z79.01 [facility] (curren t) use of anticoa gulants
wi th Provide r Comment s: Long-te rm current use of anticoa gulant (SCT [id number] 03) Outpatient [id number] 07/04 WHIT E Encounter [id number] [facility] Outpatient [id number] 03/03 WHIT E Encounter [id number] [facility] Social History Combined list of available smoking, tobacco, and other social history [facility] 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 An actual copy of the Directive is not included. Date Advance Directive Provider Source 01/15/2019 ADVANCE DIRECTIVE DISCUSSION STEPHANIE HERNANDEZ [facility]
--- OUTSIDE RECORDS SUMMARY | 2022-05-18 11:07 | XMS_ITS | Encounter Summary ---
:1945 Author Organization [facility] [place] [address] Care Team Providers Name Role Phone France Lam MD Primary Care Provider Encounter Details Date Type Department Care Team Description 01/16/2020 Telephone Vascular Surgery at [facility] [place] [address] Social History Tobacco Use Types Packs/Day [...] fidelina. Ryan Tran, MSN, RN-BC, NCTTP Tobacco Operations Officer [employer] [facility] Pager #[phone] documented in this encounter Plan of Treatment Upcoming Encounters Date Type Specialty Care Team Description 06/30/2022 Office Visit Endocrinology Alan Terrell MD [facility] ER [facility] [place] [place], [place] [address] (Wo rk) documented as of this encounter Visit Diagnoses Not on filedocumented in this encounter Care Teams Utility Repairer Relationship Specialty Start Date End Date France Lam MD PCP - General 05/02/13 02/04/20 [address] [place] [address] documented as of this encounter
--- OUTSIDE RECORDS SUMMARY | 2022-05-18 11:07 | XMS_ITS | Clinical Summary ---
:1945 Author Organization [facility] [address] Care Team Providers Name Role Phone Jovany Lott MD Primary Care Provider Allergies Active Allergy Reactions Severity Noted Date Comments Penicillins 05/13/2013 Pt doesn't gely mber reaction Pyekrsw-Die-Wjd Reductase 05/13/2013 St iff neck, upset stomach, [...] MD [facility] DR ENDOCRINOLOGY [place], [place] [address] (Wo rk) Health Maintenance Due Date Last Done Comments Covid-19 Vaccine (#1) 1945 Pneumoccocal Vaccine: 65+ (1 - PCV) 01/21/1952 Hepatitis C Screening 01/21/1964 Tdap adult 1965 Tetanus vaccine 1965 Zoster vaccine (1 of 2) 01/21/1996 Advance Directive 2001 Influenza (Flu) vaccine (1 of 1 - Influenza standard 03/02/2022 series) Lipid Screening Discontinued 11/30/2019 Procedures Procedure Name Priority Date/Time Associated Comments [...] Organization Address City/State/ZIP Code Phon e Number [place], [place] from Last 3 Months Insurance Payer Benefit Plan / Subscriber ID Effective Dates Phone Addre ss Type Group MEDICARE MEDICARE PART [id number] 2019-Prese [phone] [place] [id number] [place] [id number] 2018-Presen [employer] [place] [id number] Advance Directives Latest Code Status on File [...] capacity to make decision: Yes Care Teams Supervisor Whipped Topping Relationship Specialty Start Date End Date Jovany Lott MD PCP - General Family Medicine 02/05/20 [address] [place] [address]
--- OUTSIDE RECORDS SUMMARY | 2022-05-18 11:07 | XMS_ITS | Encounter Summary ---
:1945 Author Organization [facility] [place] [address] Care Team Providers Name Role Phone France Lam MD Primary Care Provider Encounter Details Date Type Department Care Team Description 12/29/2019 Ancillary Procedure Radiology Library at Ivette Salas [facility] [address] [place] [address] [phone] (Wo rk) Social History Tobacco Use Types Packs/Day Years Used Date Smoking Tobacco: Every Day Cigarettes 0.5 Cigars Sex Assigned at Date Recorded Not on file documented as of this encounter Plan of Treatment Upcoming Encounters Date Type Specialty Care Team Description 06/30/2022 Office Visit Endocrinology Alan Terrell MD [facility] ER ENDOCRINOLOGY [place], [place] [address] (Wo rk) documented as of [...] is for storage only. Alfreda Salas APRN [facility] FILM LIBRARY ORDERABLES Performing Organization Address City/State/ZIP Code Phon e Number RAD [place], [place] documented in this encounter Visit Diagnoses Not on filedocumented in this encounter Care Teams Capacitor Assembler Relationship Specialty Start Date End Date France Lam MD PCP - General 05/02/13 02/04/20 [address] [place] [address] documented as of this encounter
--- OUTSIDE RECORDS SUMMARY | 2022-05-18 11:07 | XMS_ITS | Encounter Summary ---
:[address] [facility] Address [address] [place] [address] Care Team Providers Name Role Phone Jennifer Gomez GLASS FURNACE TENDER Primary Care Provider Encounter Details Date Type Department Care Team Description 12/22/2019 Lab Requisition [facility] Center Outr Resulting Lab, Pathology & Laboratory Provider [facility] [address], [place] [id number] Social History Tobacco Use Types Packs/Day Years [...] Organization Address City/State/ZIP Code Phon e Number [facility] [address] [place] [address] SERVICES COVID-19 TESTING (12/22/2019 10:38 EDT) Analysis Performed At Patho logist Time Signature COVID-19 Negative Negative 12/23/2019 [facility] rt-PCR Result 19:43 EDT CENTER LABORATORY SERVICES Comment: Negative results do not preclude 2019-nC oV infection and should not be used as the sole basis for treatment or other patient management decisions. Negative results must be combined with clinical observa tions, patient history, and epidemiologi álvaro information. This test was developed and its performa nce characteristics determined by [facility]. It has not been cleared [...] by the FDA Performed on the [employer] [address] Fast. Performing Lab AB [address] [facility] Lab 12/23/2019 19:43 EDT [facility] SERVICES Specimen Anatomical Collection Method Collection Time Receive d Time (Source) Location / / Volume Laterality Swab 12/22/2019 10:38 12/22/2019 EDT 16:05 EDT Provider Outr Resulting Lab MICROBIOLOGY - GENERAL ORD ERABLES Performing Organization Address City/State/ZIP Code Phon e Number [facility] [address] [place] [address] SERVICES documented in this encounter Visit Diagnoses Not on filedocumented in this encounter Care Teams Mlt Relationship Specialty Start Date End Date Jennifer Gomez NP PCP - General 05/10/15 [facility] [address] [place], [place] [address] documented as of this encounter
--- OUTSIDE RECORDS SUMMARY | 2022-05-18 11:07 | XMS_ITS | Encounter Summary ---
:1945 Author Organization [facility] Address [facility] [place] [address] Care Team Providers Name Role Phone Jovany Lott MD Primary Care Provider Encounter Details Date Type Department Care Team Description 08/31/2020 TH Visit Cardiology at [facility] Faustino Garduno Atrial fibrillation, unspeci fied type (Primary Dx); (TeleHealth) [facility] MD Jaquan Acute ST elevation myocardial infarction (STEMI) of inferior wall; [facility] Acute systolic CHF (congesti ve heart failure), NYHA class 3, MILVIA/AHA stage C; [place], [place] Center Hyperlipidemia, unspecified hyperlipidem ia type; [address] [place], [place] Intracranial hemorrhage; [phone] PFO (patent foramen ovale); [phone] Claudication fr om peripheral vascular disease, left [...] with ICH, bilateral PE; paroxysmal atrial fibrillation [[id number]: 5]; PAD; HLD; HTN; smoking and PFO,who [...] appointment with Dr. Faustino Chou at the [facility]. However, he has not grossly noted [...] a non-culprit artery. S/P DESx3 in the wwthijpo-cf-mwttfz RCA. Aspiration thrombectomy performed, and integrellin bolus [...] with ICH, bilateral PE; paroxysmal atrial fibrillation [[id number]: 5]; PAD; HLD; HTN; smoking and PFO, [...] Will also discuss further with his local patient safety officer, Dr. Mejia. 3. Bilateral PE - Case discussed with Dr. Sanchez above; likely provoked in lieu of his prolonged hospitalization. He has completed at least 6 months of oral A/C (coinciding treatment for his afib). 4. PAD - Continue optimal medical therapy for now. Will place referral for SET/walking program. F/U 3 months Faustino Garduno MD Time spent: 35 minutes Addendum 3/15/21: Called [phone] or [phone] and was able to speak to Dr. Faustino Chou. Pt also sees Dr. Lott in [facility] for local primary care needs. Dr. 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 5RBCs also noted on urinanalysis that subsequently cleared on repeat testing. documented in this encounter Plan of Treatment Upcoming Encounters Date Type Specialty Care Team Description 06/30/2022 Office Visit Endocrinology Alan Terrell MD [facility] ER ENDOCRINOLOGY [place], [place] [address] (Wo rk) documented as of [...] unspecified documented in this encounter Care Teams Yarn Spinner Relationship Specialty Start Date End Date Jovany Lott MD PCP - General Family Medicine 02/05/[address] [place] [address] [place] [phone] documented as of this encounter
--- OUTSIDE RECORDS SUMMARY | 2022-05-18 11:07 | XMS_ITS | Encounter Summary ---
:1945 Author Organization [facility] Address [facility] [place] [address] Care Team Providers Name Role Phone France Lam MD Primary Care Provider Encounter Details Date Type Department Care Team Description 12/30/2019 TH Visit Cardiology at [facility] Faustino Garduno Claudication from peripheral vascular disease, left ; (TeleHealth) [facility] MD Jaquan Hyperlipidemia, unspecified hyperlipidem ia type; Drive [facility] Acute ST elevation myocardia l infarction (STEMI) of inferior wall; [place], [place] Center Acute systolic CHF (congestive heart reid lure), NYHA class 3, MILVIA/AHA stage C; [address] [place], [place] Intracranial hemorrhage; [phone] Atrial fibrillation, unspecified type Social History Tobacco [...] with ICH, bilateral PE; paroxysmal atrial fibrillation [[id number]: 5]; PAD; HLD; HTN; smoking and PFO,who [...] a non-culprit artery. S/P DESx3 in the pelrnfmz-ya-fdigqx RCA. Aspiration thrombectomy performed, and integrellin bolus [...] with ICH, bilateral PE; paroxysmal atrial fibrillation [[id number]: 5]; PAD; HLD; HTN; smoking and PFO, [...] 6 months Faustino Garduno MD Time spent: [id number] 0-5min [id number] 6-10min 1753WXW2 11-15min 9657RID1 16-20min XXXX 8338GFR9 21-30min 2359YBN1 31-40min 3471LTF2 40+ min documented in this encounter Plan of Treatment Upcoming Encounters Date Type Specialty Care Team Description 06/30/2022 Office Visit Endocrinology Alan Terrell MD [facility] [address] [place], [place] [address] (Wo rk) documented as of [...] type documented in this encounter Care Teams Hair Or Beauty Salon Assistant Relationship Specialty Start Date End Date France Lam MD PCP - General 05/02/13 02/04/20 [address] [place] [address] documented as of this encounter
--- OUTSIDE RECORDS SUMMARY | 2022-05-18 11:07 | XMS_ITS | Encounter Summary ---
:[address] [facility] Address [address] [place] [address] Care Team Providers Name Role Phone Unavailable Primary Care Provider Unavailable Encounter Details Date Type Department Care Team Description 09/02/2003 Results Only [facility] - Otis Patel MD conversion [address] [facility] [address] [place], [place] [address] [place] [address] (Wo rk) Social History Tobacco Use Types Packs/Day Years Used Date Smoking Tobacco: Never Assessed Sex Assigned at Date Recorded Not on file documented as of this encounter Plan of Treatment Not on filedocumented as of this encounter Procedures Procedure Name Priority Date/Time Associated Diagnosis Comme [facility] SURGICAL PATHOLOGY Routine 09/02/2003 0:00 EST Re sults for this procedure are i n the results section. documented in this encounter Results SURGICAL PATHOLOGY (09/02/2003 0:00 EST) Component Value Ref Test Analysis Performed At [facility] Method Time Signature Pathology SURGICAL PATHOLOGY REPORT ZAYNAB MARINELLI Report: Reports generated via electronic interface contain catherinea l data; MARLI MENDOZA however they are lacking the format of the original report. Caution should be taken when reading/interpreting unformatte d reports. Name: ? ANGLE LUIS SALINAS ? Accession #: ? [id number] ? : ? 1945 (Age: 58) ??M [...] of the lesion is recommended. ??(Dr. Jaz weller)/Ullink Microscopic Description: ? The epidermis is hype [...] and cords of similar melanocytes that show care transition manager maturation with descent. 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 ??(Dr. Mascorro)/Ullink Document reviewed and electronically signed by: Mai [...] entirely submitted in one cassette. ??(Dr. Alejandro jacobsen)/[facility] End of Report Specimen (Source) Anatomical Collection Method Collection Time Re ceived Time Location / / Volume Laterality 09/02/2003 09/03/2003 15:2 7 EST Otis Moss MD PATHOLOGY ORDERABLES Performing Organization Address City/State/ZIP Code Phon e Number [facility] [address] [place] [address] SERVICES [facility] [address] [place] [phone] documented in this encounter Visit Diagnoses Not on filedocumented in this encounter
--- OUTSIDE RECORDS SUMMARY | 2022-05-18 11:07 | XMS_ITS | Encounter Summary ---
:1945 Author Organization [facility] Address [address] [place] [address] Care Team Providers Name Role Phone Jennifer Gomez NEWSPAPER PUBLISHER Primary Care Provider Encounter Details Date Type Department Care Team Description 02/15/2022 Lab Requisition [facility] Outr Resulting Lab, Pathology & Laboratory Provider [facility] [address] [place] [id number] Social History Tobacco Use Types Packs/Day Years [...] Free 9.3 (H) 2.8 - 5.3 02/15/2022 [facility] pg/mL 21:51 EDT CENTER LABORATORY SERVICES Specimen Anatomical Collection Method Collection Time Receive d Time (Source) Location / / Volume Laterality Blood VENOUS BLOOD / 02/15/2022 10:37 Unknown EDT 21:20 EDT Provider Outr Resulting Lab CHEMISTRY & BLOOD GAS CHLOE Duncan Organization Address City/State/ZIP Code Phon e Number [facility] [address] [place] [address] SERVICES documented in this encounter Visit Diagnoses Not on filedocumented in this encounter Care Teams Welder Plasma Arc Relationship Specialty Start Date End Date Jennifer Gomez, NEWSPAPER PUBLISHER PCP - General 05/10/15 [facility] [address] [place] [address] documented as of this encounter
--- OUTSIDE RECORDS SUMMARY | 2022-05-18 11:07 | XMS_ITS | Encounter Summary ---
:1945 Author Organization [facility] Address [address] [place] [address] Care Team Providers Name Role Phone Jennifer Gomez ASSOCIATE PROGRAMMER Primary Care Provider Encounter Details Date Type Department Care Team Description 04/24/2022 Lab Requisition [facility] Outr Resulting Lab, Pathology & Laboratory Provider [facility] [address] [address] Social History Tobacco Use Types Packs/Day Years [...] Free 2.8 2.8 - 5.3 04/25/2022 [facility] pg/mL 21:09 EDT CENTER LABORATORY SERVICES Specimen Anatomical Collection Method Collection Time Receive d Time (Source) Location / / Volume Laterality Blood VENOUS BLOOD / 04/24/2022 11:50 Unknown EDT 20:27 EDT Provider Outr Resulting Lab CHEMISTRY & BLOOD GAS CHLOE IBARRA Performing Organization Address City/State/ZIP Code Phon e Number [facility] [address] [place] [address] SERVICES documented in this encounter Visit Diagnoses Not on filedocumented in this encounter Care Teams Marine Welder Relationship Specialty Start Date End Date Jennifer Gomez, ASSOCIATE PROGRAMMER PCP - General 05/10/15 [facility] [address] [place] [address] documented as of this encounter
--- OUTSIDE RECORDS SUMMARY | 2022-05-18 11:07 | XMS_ITS | Encounter Summary ---
:1945 Author Organization [facility] [address] Care Team Providers Name Role Phone France Lam MD Primary Care Provider Encounter Details Date Type Department Care Team Description 12/24/2019 Telephone Neurosurgery at [facility] Cathy Jay [facility] [place] [address] Social History Tobacco Use Types Packs/Day [...] CT on 12/28. Faxed push request to [facility] Telephone Encounter - Elza Bradshaw - 12/25/2019 11:50 AM EDT Called [employer] student services representative I spoke with patient has plan N and does not require authorization. Order faxed with demos to [facility]. Postponing to allow time for scheduling. Telephone Encounter - Cathy Jay - 12/24/2019 11:42 AM EDT Patient needs f/u appointment(s): With [facility] on/around 01/13 3 weeks TOV, s/p Intracranial hemorrhage, [facility] prior 1. [employer] [facility]? ~~~~~~~~~~~~~~~~~~~~~~~~~~~~~~~~~~~~~~~~~~~~~~~~~~~~~~ Alfreda Salas APRN Sent: e December 23, 2019 ??7:39 PM To: P [facility] Neurosurgery Clean Rice Broker Jovany Hi ( ) : 1945> ?? Follow-up and Dispositions Check-out Note: Follow up head CT and TOV in 3 weeks unless vision worsens or he develops new symptoms in meantime ([facility] for CT) documented in this encounter Plan of Treatment Upcoming Encounters Date Type Specialty Care Team Description 06/30/2022 Office Visit Endocrinology Alan Terrell MD [facility] ER DR ENDOCRINOLOGY [place], [place] [address] (Wo rk) documented as of this encounter Visit Diagnoses Not on filedocumented in this encounter Care Teams Rotary Shear Operator Relationship Specialty Start Date End Date France Lam MD PCP - General 05/02/13 02/04/20 [address] [place] [address] documented as of this encounter
--- OUTSIDE RECORDS SUMMARY | 2022-05-18 11:07 | XMS_ITS | Encounter Summary ---
:1945 Author Organization [facility] Address [facility] [place] [address] Care Team Providers Name Role Phone France Lam MD Primary Care Provider Encounter Details Date Type Department Care Team Description 12/26/2019 TH Visit Cardiology at [facility] Merlin Sanchez V, Claudication from peripheral vascular disease, left ; (TeleHealth) [facility] Hyperlipidemia, unspecified hyperlipidem ia type; Drive [facility] Acute ST elevation myocardia l infarction (STEMI) of inferior wall; [place], [place] CENTER Acute systolic CHF (congestive heart reid lure), NYHA class 3, MILVIA/AHA stage C [address] CARDI[address]Y DEPT. [phone] [place] [address] Social History Tobacco Use Types Packs/Day Years [...] plan going forward. Merlin Sanchez M.D., F.A.C.C. manager fiber Pager 2020 >50% of the 15 minute evaluation was spent in direct conversation/counselling documented in this encounter Plan of Treatment Upcoming Encounters Date Type Specialty Care Team Description 06/30/2022 Office Visit Endocrinology EchtAlan MD [facility] ENDOCRINOLOGY [place], [place] [address] (Wo rk) documented as of this encounter Visit Diagnoses Diagnosis Claudication from peripheral vascular di sease, left Peripheral vascular disease, unspecified Hyperlipidemia, unspecified hyperlipidem ia type Acute ST elevation myocardial infarction (STEMI) of inferior wall Acute systolic CHF (congestive heart reid lure), NYHA class 3, MILVIA/AHA stage C Acute systolic heart failure documented in this encounter Care Teams Business Office Manager Relationship Specialty Start Date End Date France Lam MD PCP - General 05/02/13 02/04/20 [address] [place] [address] documented as of this encounter
--- OUTSIDE RECORDS SUMMARY | 2022-05-18 11:07 | XMS_ITS | Encounter Summary ---
:1945 Author Organization [facility] Address [address] [place] [address] Care Team Providers Name Role Phone Jennifer Gomez ROBOTIC MAINTENANCE TECHNICIAN Primary Care Provider Encounter Details Date Type Department Care Team Description 08/26/[address] [facility] Najma Valladares for other Pathology & M, DO general examination Laboratory Medicine - [address] [facility] [address] [place] [phone] Social History Tobacco Use Types Packs/Day Years [...] At Signature Note to The following 09/02/2021 [facility] MEDICAL Patient pathology results 13:09 EST CENTER have been interpreted LABORATO RY by your pathologist SERVICES and may be available to you before your health provider has had the opportunity to review them. Please allow time for your provider to receive these results and explore management options, if applicable. Final A. RECTUM, POLYP, BIOPSY : 09/02/[address] [facility] Diagnosis - Polypoid submucosal anal glands. 13:09 EST CENTER - Overlying rectal mucosa negative for dysplasia. LABORATORY - See comment. SERVICES Diagnosis This rectal polyp shows a cantor bmucosal collection of anal duct glands causing a polypoid configuration. The morphology and the immunohistochemical profile are consistent with a benign (non-neoplastic) pro 09/02/2021 [facility] MEDICAL Comment cess. Slate Roofer slides of this case were reviewed at the gastrointestinal/liver intradepartmental consultation conference. : [facility] LABOR[facility]ORY ANTIBODY(CLONE)(BLOCK):RESULT SERVICES CK7 (RN7, Leica) (A1): Strongly positive PAX-8 (MRQ-50, [facility]) (A1): Negative NKX3.1 (Rabbit Polyclonal, [facility]) (A1): Negative GATA3 (L50-823, [facility]) (A1): Negative NOTE: One or more of [...] laboratory testing. Attestation By the signature 09/02/2021 [facility] MEDICA L Electronically below, the attending 13:09 [facility] signed by physician certifies LABORATORY Jacobo, that they have 1) SERVICES Tory roberts MD on personally conducted 09/02/2021 at a gross and/or 1309 microscopic examination of the described specimen(s), and/or personally interpreted the results of laboratory testing of the described specimen(s), and 2) personally rendered or confirmed the above diagnosis. Clinical Flex sigmoidoscopy; 09/02/2021 [facility] MEDIC AL History diverticulosis, polyp : [facility]OR[facility] SERVICES Gross A. 09/02/2021 [facility] MEDICAL Description Received in formalin mark d with proper patient identification (initials M, J) and rectal polyp is a marr-brown polyp, 0.6 x 0.5 x 0.4 cm. Bisected and entirely submitted in A1. 13: [facility] ESTEFANY NICHOLS(ASCP) 08/26/2021 16:41 SERVICES Performing [facility] LAB 09/02/2021 [facility] MEDIC AL Lab 13:09 [facility] CENTER LABORATORY SERVICES Scanned 09/02/2021 [facility] MEDICAL Images 13:09 [facility] CENTER LABORATORY SERVICES Specimen Anatomical Collection Method Collection Time Receive d Time (Source) Location / / Volume Laterality Tissue SPECIMEN FROM 08/26/2021 8:45 08/26/2021 RECTUM / Unknown EST 16:37 EST Najma Valladares DO PATHOLOGY ORDERABLES Performing Organization Address City/State/ZIP Code Phon e Number [facility] [address] [place] [address] SERVICES documented in this encounter Visit Diagnoses Diagnosis Encounter for other general examination documented in this encounter Care Teams Sales Commissions Analyst Relationship Specialty Start Date End Date Jennifer Gomez NP PCP - General 05/10/15 [facility] [address] [place], [place] [address] documented as of this encounter
--- OUTSIDE RECORDS SUMMARY | 2022-05-18 11:07 | XMS_ITS | Encounter Summary ---
:1945 Author Organization [facility] [place] [address] Care Team Providers Name Role Phone Jovany Lott MD Primary Care Provider Encounter Details Date Type Department Care Team Description 10/12/2020 Notes Only [place] [facility] [place]ow Callejas RN [facility] [place] [address] Social History Tobacco Use Types Packs/Day [...] Alan Terrell MD [facility] ER [address] [place], [place] [address] (Wo rk) documented as of this encounter Visit Diagnoses Not on filedocumented in this encounter Care Teams Vending Mechanic Relationship Specialty Start Date End Date Jovany Lott MD PCP - General Family Medicine 02/05/20 [address] [place] [address] documented as of this encounter
--- OUTSIDE RECORDS SUMMARY | 2022-05-18 11:07 | XMS_ITS | Encounter Summary ---
:1945 Author Organization [facility] [place] [address] Care Team Providers Name Role Phone France Lam MD Primary Care Provider Reason for Visit Reason Onset Date Comments TeleHealth 12/22/2019 Appt 12/23/19 Encounter Details Date Type Department Care Team Description 12/22/2019 Telephone Neurosurgery at [facility] Alfreda Salas TeleHealth (Appt [facility] Devin Sebastian, VALIDATION SPECIALIST 12/23/19) [place] [address] [place] [address] [address] [place] [address] Social History Tobacco Use Types [...] Description 06/30/2022 Office Visit Endocrinology GenietAlan MD [facility] ER [address]LEN[address] [place] [address] (Wo rk) documented as of this encounter Visit Diagnoses Not on filedocumented in this encounter Care Teams Distribution Collection Operator Relationship Specialty Start Date End Date France Lam MD PCP - General 05/02/13 02/04/20 [address] [place] [address] documented as of this encounter
--- OUTSIDE RECORDS SUMMARY | 2022-05-18 11:07 | XMS_ITS | Encounter Summary ---
:1945 Author Organization [facility] Address [address] [place] [address] Care Team Providers Name Role Phone Jennifer Gomez PROCESS EXCELLENCE MANAGER Primary Care Provider Encounter Details Date Type Department Care Team Description 03/19/2019 Hospital Encounter [facility] Unknown, Provider, [facility] 0 [facility] [phone] [place] [address] (Work) [phone] Social History Tobacco Use Types Packs/Day Years Used Date Smoking Tobacco: Never Assessed Sex Assigned at Date Recorded Not on file documented as of this encounter Discharge Disposition Disposition Code Departure Means Destination Home or Self Prison documented in this encounter Plan of Treatment Not on filedocumented as of this encounter Visit Diagnoses Not on filedocumented in this encounter Care Teams Lamp Developer Relationship Specialty Start Date End Date Jennifer Gomez, PROCESS EXCELLENCE MANAGER PCP - General 05/10/15 [facility] [address] [place], [place] [address] documented as of this encounter
--- OUTSIDE RECORDS SUMMARY | 2022-05-18 11:07 | XMS_ITS | Encounter Summary ---
:1945 Author Organization [facility] [place] [address] Care Team Providers Name Role Phone Jovany Lott MD Primary Care Provider Encounter Details Date Type Department Care Team Description 11/10/2020 Telephone Cardiology [place] [facility] Wilver Davey [facility] [place] [address] Social History Tobacco Use Types Packs/Day [...] 06/30/2022 Office Visit Endocrinology Alan Terrell MD [facility] ER ENDOCRINOLOGY [place], [place] [address] (Wo rk) documented as of this encounter Visit Diagnoses Not on filedocumented in this encounter Care Teams Front Desk Receptionist Relationship Specialty Start Date End Date Jovany Lott MD PCP - General Family Medicine 02/05/20 [address] [place] [address] documented as of this encounter
--- OUTSIDE RECORDS SUMMARY | 2022-05-18 11:07 | XMS_ITS | Encounter Summary ---
:1945 Author Organization [facility] [place] [address] Care Team Providers Name Role Phone France Lam MD Primary Care Provider Encounter Details Date Type Department Care Team Description 12/23/2019 TH Visit Neurosurgery at [facility] Alfreda Salas Intracranial (TeleHealth) [facility] C, COMPRESSED [place] [address] Center [phone] [place] [address] Social History Tobacco Use Types Packs/Day Years Used Date Smoking Tobacco: Every Day Cigarettes 0.5 Cigars Sex Assigned at Date Recorded Not on file documented as of this encounter Progress Notes Alfreda Salas, COMPRESSED GAS TESTER - 12/23/2019 1:30 PM EDT Images from [...] 2 [address] up head [address] at [facility], showing slight decrease in size [...] 3-4 weeks which may be done at [facility] with follow up [facility]. Head CT 12/18/19 Assessment and [...] 06/30/2022 Office Visit Endocrinology Alan Terrell MD [facility] DR ENDOCRINOLOGY [place], [place] [address] (Wo rk) documented as of this encounter Visit Diagnoses Diagnosis Intracranial hemorrhage Unspecified intracranial hemorrhage documented in this encounter Care Teams Floorhand Relationship Specialty Start Date End Date France Lam MD PCP - General 05/02/13 02/04/20 [address] [place] [address] documented as of this encounter
--- OUTSIDE RECORDS SUMMARY | 2022-05-18 11:07 | XMS_ITS | Encounter Summary ---
:1945 Author Organization [facility] Address [facility] [place] [address] Care Team Providers Name Role Phone France Lam MD Primary Care Provider Reason for Visit Reason Onset Date Comments TeleHealth 01/08/2020 Appt 01/09/20 Encounter Details Date Type Department Care Team Description 01/08/2020 Telephone Neurology at [facility] Efrain Nicole PA TeleHealth (Appt [facility] 12/[address] ) [place] [address] NEUROLOGY [phone] [place], [place] [address] (Wo rk) Social History Tobacco [...] 06/30/2022 Office Visit Endocrinology Alan Terrell MD [facility] ER [place]OLOGY [place], [place] [address] (Wo rk) documented as of this encounter Visit Diagnoses Not on filedocumented in this encounter Care Teams Electrotype Caster Relationship Specialty Start Date End Date France Lam MD PCP - General 05/02/13 02/04/20 [address] [place] [address] documented as of this encounter
--- OUTSIDE RECORDS SUMMARY | 2022-05-18 11:07 | XMS_ITS | Encounter Summary ---
:1945 Author Organization [facility] [place] [address] Care Team Providers Name Role Phone Jovany Lott MD Primary Care Provider Reason for Visit Reason Onset Date Comments Follow-up 06/15/2020 Tobacco Treatment Encounter Details Date Type Department Care Team Description 06/15/2020 Telephone Vascular Surgery at [facility]- (Tobacco [facility] Sukumar, RN Treatment) [place] [address] Social History Tobacco Use Types Packs/Day [...] updated. Ryan Tran, MSN, RN-BC, NCTTP Tobacco Palliative Care Coordinator [facility] Pager #[phone] documented in this encounter Plan of Treatment Upcoming Encounters Date Type Specialty Care Team Description 06/30/2022 Office Visit Endocrinology Alan Terrell MD [facility] ENDOCRINOLOGY [place], [place] [address] (Wo rk) documented as of this encounter Visit Diagnoses Not on filedocumented in this encounter Care Teams Pigment Pumper Relationship Specialty Start Date End Date Jovany Lott MD PCP - General Family Medicine 02/05/20 [address] [place] [address] documented as of this encounter
--- OUTSIDE RECORDS SUMMARY | 2022-05-18 11:07 | XMS_ITS | Encounter Summary ---
:1945 Author Organization [facility] [place] [address] Care Team Providers Name Role Phone Jovany Lott MD Primary Care Provider Reason for Visit Consultation (Routine) - Closed Specialty Diagnoses / Procedures Referred By Contact Refer red To Contact Cardiology Diagnoses ST elevation (STEMI) myocardial infarction of unspecified site Hyperlipidemia, unspecified PeriDawit muhammad MD [place] [address] [place] [address] DR [facility] CARDI[facility] D EPT [address] [place] [address] Fax: Referral ID Status Reason Start Date Expiration Date Visits V isits Requested Authorized [id number] Closed Consult, Test 02/10/2020 02/09/2021 [facility] PCP Updated and/or Approved Encounter Details Date Type Department Care Team Description 03/12/2020 TH Visit Cardiology at [facility] Melina Payan Fredrickson type IIa hyperli poproteinemia; (TeleHealth) [facility] Hyperglycemia; [facility] Elevated TSH; [employer] Hypothyroidism, acquired [address] CARDIOLOGY DEPT [phone] [place], [place] [address] Social History Tobacco Use Types Packs/Day Years Used Date Smoking Tobacco: Former Cigarettes 0.5 Quit : 11/29/2019 Cigars Smokeless Tobacco: Former Comments: Quit chew tobacco years and y ears ago Sex Assigned at Date Recorded Not on file documented as of this encounter Progress Notes Melina Payan MD - 03/12/2020 1:00 PM EDT [facility] Heart and Vascular [...] Social History: 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 They have [...] medications for this visit. 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 He has multiple cardiovascular risk factors including peripheral artery disease, hyperlipidemia (elevated LDL, depressed HDL), a 55-dhak-tler history of smoking, and prediabetes. Jovany quit [...] but Jovany replied: I can't drive to [employer] every 2 weeks for that. I explained [...] Visit Endocrinology Alan Terrell MD [facility] ER [address]AR[address] [place], [place] [address] (Wo rk) documented as of this encounter Visit Diagnoses Diagnosis Tiny type IIa hyperlipoproteinemi a Pure hypercholesterolemia Hyperglycemia Other abnormal glucose Elevated TSH Other abnormal blood chemistry Hypothyroidism, acquired Unspecified hypothyroidism documented in this encounter Care Teams Cocktail Waitress Relationship Specialty Start Date End Date Jovany Lott MD PCP - General Family Medicine 02/05/20 [address] [place] [address] documented as of this encounter
--- OUTSIDE RECORDS SUMMARY | 2022-05-18 11:07 | XMS_ITS | Encounter Summary ---
:1945 Author Organization Health system Address [address] [place] [address] Care Team Providers Name Role Phone Unavailable Primary Care Provider Unavailable Encounter Details Date Type Department Care Team Description 09/15/2003 Results Only [facility] - Otis Patel MD conversion [address] [facility] [address] [place] [address] [place] [address] (Wo rk) Social History Tobacco Use Types Packs/Day Years Used Date Smoking Tobacco: Never Assessed Sex Assigned at Date Recorded Not on file documented as of this encounter Plan of Treatment Not on filedocumented as of this encounter Procedures Procedure Name Priority Date/Time Associated Diagnosis Comme [facility] SURGICAL PATHOLOGY Routine 09/15/2003 0:00 EST Re sults for this procedure are i n the results section. documented in this encounter Results SURGICAL PATHOLOGY (09/15/2003 0:00 EST) Component Value Ref Test Analysis Performed At [facility] Method Time Signature Pathology SURGICAL PATHOLOGY REPORT ZAYNAB MARINELLI Report: Reports generated via electronic interface contain catherinea l data; MARLI MENDOZA however they are lacking the format of the original report. Caution should be taken when reading/interpreting unformatte d reports. Name: ? ANGEL LUIS SALINAS ? Accession #: ? [id number] ? : ? 1945 (Age: 58) ??M ? Collect Date: ? 09/15/2003 ? Location: ? [facility] ? Receive Date: ? 09/16/2003 ? Provider: OTIS MOSS MD Copy to: MALCOM MCGEE DRILLING MACHINE RUNNER ? Final Pathologic Diagnosis: ? Skin of [...] Code Phon e Number [facility] [address] [place] [address] SERVICES [facility] [address] [place] [address] documented in this encounter Visit Diagnoses Not on filedocumented in this encounter
--- OUTSIDE RECORDS SUMMARY | 2022-05-18 11:07 | XMS_ITS | Encounter Summary ---
:1945 Author Organization [facility] Address [address] [place] [address] Care Team Providers Name Role Phone Jennifer Gomez CLICKING MACHINE OPERATOR Primary Care Provider Encounter Details Date Type Department Care Team Description 09/07/2020 Lab Requisition [facility] Outr Resulting Lab, Pathology & Laboratory Provider [facility] [address] [place] [address] Social History Tobacco Use Types Packs/Day Years [...] City/State/ZIP Code Phon e Number [facility] [address] [place] [address] SERVICES COVID-19 TESTING (09/07/2020 9:45 EST) Analysis Performed At Patho logist Time Signature COVID-19 Negative Negative 09/08/2020 [facility] MEDICAL rt-PCR Result 14:27 EST CENTER [...] and its performa nce characteristics determined by [facility]. It has not been cleared or [...] This test is based on the [facility] COVID-19 E mergency Use Authorization (EUA) assay, with minor modification as defined by the FDA Performed on the Vineo 7 Pro RT-PCR System. Performing Lab [facility] Lab 09/08/2020 14:27 EST [facility] SERVICES Specimen Anatomical Collection Method Collection Time Receive d Time (Source) Location / / Volume Laterality Swab 09/07/2020 9:45 09/07/2020 EST 20:56 EST Provider Outr Resulting Lab MICROBIOLOGY - GENERAL ORD ERABLES Performing Organization Address City/State/ZIP Code Phon e Number [facility] [address] [place] [address] SERVICES documented in this encounter Visit Diagnoses Not on filedocumented in this encounter Care Teams Patient Educator Relationship Specialty Start Date End Date Jennifer Gomez NP PCP - General 05/10/15 [facility] [address] [place] [address] documented as of this encounter
--- OUTSIDE RECORDS SUMMARY | 2022-05-18 11:07 | XMS_ITS | Encounter Summary ---
:1945 Author Organization [facility] Address [facility] [place] [address] Care Team Providers Name Role Phone Jovany Lott MD Primary Care Provider Encounter Details Date Type Department Care Team Description 10/05/2020 Notes Only Cardiology Merlin Sanchez [place] [address] CARDIOLOGY DEPT. [phone] [place], [place] [address] (Wo rk) Social History Tobacco [...] BEKAH-C with [facility] Merlin Sanchez MD [facility] Pager 2020 documented in this encounter Plan of Treatment Upcoming Encounters Date Type Specialty Care Team Description 06/30/2022 Office Visit Endocrinology EchtAlan MD [facility] ER [address] [place], [place] [address] (Wo rk) documented as of this encounter Visit Diagnoses Not on filedocumented in this encounter Care Teams Dynamo Tender Relationship Specialty Start Date End Date Jovany Lott MD PCP - General Family Medicine 02/05/20 [address] [place] [address] documented as of this encounter
--- OUTSIDE RECORDS SUMMARY | 2022-05-18 11:07 | XMS_ITS | Encounter Summary ---
:1945 Author Organization [facility] Address [address] [place] [address] Care Team Providers Name Role Phone Jennifer Gomez TITLE VEHICLE SERVICE ATTENDANT Primary Care Provider Encounter Details Date Type Department Care Team Description 03/19/2019 Results Only [facility] Angel Luis Lott MD [phone] [address] [place], [place] [phone] (Wo rk) Social History Tobacco Use Types [...] Component Value Ref Test Analysis Performed At [facility] Method Time Signature Pathology SURGICAL PATHOLOGY REPORT [facility] MED[facility] Report: Reports generated via electronic interface contain [facility] data; CENTER however they are lacking the format of the original report. LABORATORY Caution should be taken when reading/interpreting unformat pepper reports. SERVICES Name: ? ANGEL LUIS HI ? Accession #: ? [id number] ? : ? 1945 (Age: 8 3) [...] and entirely submitted in 1. ESTEFANY Brown ([facility]) 03/20/2019 5:33 PM End of Report Specimen Anatomical Collection Method Collection Time Receive d Time (Source) Location / / Volume Laterality 03/19/2019 16:47 03/20/2019 EDT 16:47 EDT Angel Luis Lott MD PATHOLOGY ORDERABLES Performing Organization Address City/State/ZIP Code Phon e Number [facility] [address] [place] [address] SERVICES documented in this encounter Visit Diagnoses Not on filedocumented in this encounter Care Teams Sewer Builder Relationship Specialty Start Date End Date Jennifer Gomez NP PCP - General 05/10/15 [facility] [address] [place] [address] documented as of this encounter
--- OUTSIDE RECORDS SUMMARY | 2022-05-18 11:07 | XMS_ITS | Encounter Summary ---
:1945 Author Organization [facility] Address [address] [place] [address] Care Team Providers Name Role Phone Jovany Lott MD Primary Care Provider Encounter Details Date Type Department Care Team Description 10/08/2020 Telephone Cardiology at [facility] Faustino Garduno MD [facility] [place] [address] [place] [address] [phone] (Wo rk) Social History Tobacco Use Types [...] with Dr. Chou, his provider via the [place] (see my prior clinic note). His case [...] offerscheduling for him. Faustino Garduno MD Pager [phone] documented in this encounter Plan of Treatment Upcoming Encounters Date Type Specialty Care Team Description 06/30/2022 Office Visit Endocrinology EchtAlan MD [facility] ENDOCRINOLOGY [place], [place] [address] (Wo rk) documented as of this encounter Visit Diagnoses Not on filedocumented in this encounter Care Teams Statue Maker Relationship Specialty Start Date End Date Jovany Lott MD PCP - General Family Medicine 02/05/20 [address] [place] [id number] documented as of this encounter
--- OUTSIDE RECORDS SUMMARY | 2022-05-18 11:07 | XMS_ITS | Encounter Summary ---
:1945 Author Organization [facility] [place] [address] Care Team Providers Name Role Phone France Lam MD Primary Care Provider Encounter Details Date Type Department Care Team Description 01/09/2020 TH Visit Neurology at [facility] Efrain Nicole, Intracranial hemorrhage; (TeleHealth) [facility] ESTEFANY Tobacco abuse; [facility] Cerebrovascular accident (CV A) due to embolism of right posterior cerebral artery [facility] [id number] NEUROLOGY [phone] [place] [address] Social History Tobacco Use Types Packs/Day Years Used Date Smoking Tobacco: Every Day Cigarettes 0.5 Cigars Sex Assigned at Date Recorded Not on file documented as of this encounter Progress Notes Efrain Nicole PA - 01/09/2020 9:00 AM EDT [facility] Stroke [facility] [place] [address] t: [phone] / f: [phone] TELEPHONE ENCOUNTER Date of Appointment: 01/09/2020 I [...] cardiology - had f/u head CT at [facility] which was stable with resolving known hemorrhage - has not resumed smoking -has been in touch with Dr. Sanchez for Watchman, deferred for duration of anticoagulation for PE Modified Bates Scale (MRS) 0: No symptoms at all [...] -advised vision/eye exam with his local provider ([facility]); consider referral to neuro-ophthalmology here in [...] Visit Endocrinology Alan Terrell MD [facility] ENDOCRINOLOGY [place], [place] [address] (Wo rk) documented as of this encounter Visit Diagnoses Diagnosis Intracranial hemorrhage Unspecified intracranial hemorrhage Tobacco abuse Tobacco use disorder Cerebrovascular accident (CVA) due to em bolism of right posterior cerebral artery documented in this encounter Care Teams Lavender Farm Worker Relationship Specialty Start Date End Date France Lam MD PCP - General 05/02/13 02/04/20 [address] [place] [address] documented as of this encounter
--- OUTSIDE RECORDS SUMMARY | 2022-05-18 11:07 | XMS_ITS | Encounter Summary ---
:1945 Author Organization [facility] Address [address] [place] [address] Care Team Providers Name Role Phone Jennifer Gomez PAPETERIE TABLE ASSEMBLER Primary Care Provider Encounter Details Date Type Department Care Team Description 02/07/2020 Lab Requisition [facility] Outr Resulting Lab, Pathology & Laboratory Provider [facility] [address] [place] [address] Social History Tobacco Use Types [...] TEST (02/07/2020 7:59 EDT) Analysis Performed At [facility] Time Signature COVID-19 NEGATIVE Negative 02/08/2020 [...] Address City/State/ZIP Code Phon e Number [facility] [place] [place] COVID-19 TESTING (02/07/2020 7:59 EDT) Analysis Performed At [facility] Time Signature COVID-19 NEGATIVE Negative 02/08/2020 [...] Administration's Emergency Use Authorization. Performing Lab [employer] 02/08/2020 17:4 7 EDT [facility] Specimen Anatomical Collection Method Collection Time Receive d Time (Source) Location / / Volume Laterality Swab 02/07/2020 7:59 02/07/2020 EDT 23:07 EDT Provider Outr Resulting Lab MICROBIOLOGY - GENERAL ORD ERABLES Performing Organization Address City/State/ZIP Code Phon e Number [facility] [address] [place] [address] SERVICES [facility] [place] [place] documented in this encounter Visit Diagnoses Not on filedocumented in this encounter Care Teams Cutter Gas Relationship Specialty Start Date End Date Jennifer Gomez NP PCP - General 05/10/15 [facility] [address] [place], [place] [id number] documented as of this encounter
--- OUTSIDE RECORDS SUMMARY | 2022-05-18 11:07 | XMS_ITS | Encounter Summary ---
:1945 Author Organization [facility] Address [address] [place] [address] Care Team Providers Name Role Phone Jennifer Gomez UNDERCOAT SPRAYER Primary Care Provider Encounter Details Date Type Department Care Team Description 01/25/2022 Lab Requisition [facility] Outr Resulting Lab, Pathology & Laboratory Provider [facility] [address], [place] [id number] Social History Tobacco Use Types Packs/Day Years [...] BACTERIAL PATHOGENS BY PCR (01/24/2022 14:50 EDT) [facility] Method Time Signature Salmonella PCR Negative Negative 01/25/2022 [facility] 22:03 EDT [facility] Shigella/Enteroin Negative Negative 01/25/2022 [facility] vasive E. coli 22:03 EDT [facility] HN LAB Negative Negative 01/25/2022 [facility] CAMPYLOBACTER PCR 22:03 EDT [facility] Shiga Toxin PCR Negative Negative 01/25/2022 [facility] 22:03 EDT [facility] Specimen Anatomical Collection Method Collection Time Receive d Time (Source) Location / / Volume Laterality Feces SPECIMEN FROM 01/24/2022 14:50 01/25/2022 [facility] / Unknown EDT 17:30 EDT Provider Outr Resulting Lab MICROBIOLOGY - GENERAL ORD ERABLES Performing Organization Address City/State/[facility] Code Phon e Number [facility] [address] [place] [address] SERVICES documented in this encounter Visit Diagnoses Not on filedocumented in this encounter Care Teams Chief Maintenance Supervisor Relationship Specialty Start Date End Date Jennifer Gomez, NAMITA PCP - General 05/10/15 [facility] [address] [place] [address] documented as of this encounter
--- OUTSIDE RECORDS SUMMARY | 2022-05-18 11:07 | XMS_ITS | Clinical Summary ---
:1945 Author Organization [facility] Address [address] [place] [address] Care Team Providers Name Role Phone Jennifer Gomez Bunny FIRING PIN GAUGER Primary Care Provider Encounters Date Type Specialty [...] T3, Free 2.8 2.8 - 5.3 04/25/2022 [facility] pg/mL 21:09 EDT [facility] Specimen Anatomical Collection Method Collection Time Receive d Time (Source) Location / / Volume Laterality Blood VENOUS BLOOD / 04/24/2022 11:50 Unknown EDT 20:27 EDT Provider Outr Resulting Lab CHEMISTRY & BLOOD GAS CHLOE IBARRA Performing Organization Address City/State/ZIP Code Phon e Number [facility] [address] [place] [address] SERVICES from Last 3 Months Insurance Payer Benefit Plan Subscriber ID Effective Phone Address Typ e / Group Dates [employer] OF [employer] OF [id number] 2018-Prese [id number] [place] [address] MEDICARE MEDICARE A/B [id number] 2011-Pres [address] Medicare GL ent [id number] [place] [address] (Work) Jovany Hi Personal/Family Self [address] (Home) [place] [address] (Work) Jovany Hi Personal/Family Self [address] (Home) [place] [address] (Work) Care Teams Frame Feeder Relationship Specialty Start Date End Date Jennifer Gomez, FIRING PIN GAUGER PCP - General 05/10/15 [facility] [address] [place], [place] [phone]
--- OUTSIDE RECORDS SUMMARY | 2022-05-18 11:08 | XMS_ITS | Encounter Summary ---
:1945 Author Organization [facility] [place] [address] Care Team Providers Name Role Phone France Lam MD Primary Care Provider Encounter Details Date Type Department Care Team Description 12/18/2019 Ancillary Procedure Radiology Library at Debi Lam [facility] [address] [address] [place] [address] [phone] Social History Tobacco Use Types Packs/Day Years Used Date Smoking Tobacco: Every Day Cigarettes 0.5 Cigars Sex Assigned at Date Recorded Not on file documented as of this encounter Plan of Treatment Upcoming Encounters Date Type Specialty Care Team Description 06/30/2022 Office Visit Endocrinology Alan Terrell MD [facility] [address] [place], [place] [address] (Wo rk) documented as of [...] City/State/ZIP Code Phon e Number [facility] [place], [place] documented in this encounter Visit Diagnoses Not on filedocumented in this encounter Care Teams Boat Person Relationship Specialty Start Date End Date France Lam MD PCP - General 05/02/13 02/04/20 [address] [place] [address] documented as of this encounter
--- OUTSIDE RECORDS SUMMARY | 2022-05-18 11:08 | XMS_ITS | Encounter Summary ---
:1945 [place] [address] Care Team Providers Name Role Phone France Lam MD Primary Care Provider Encounter Details Date Type Department Care Team Description 12/08/2019 Orders Only Neurosurgery at [facility] Natalia Delong, Madhavi [facility] [place] [address] Social History Tobacco Use Types Packs/Day Years Used Date Smoking Tobacco: Every Day Cigarettes 0.5 Cigars Sex Assigned at Date Recorded Not on file documented as of this encounter Plan of Treatment Upcoming Encounters Date Type Specialty Care Team Description 06/30/2022 Office Visit Endocrinology Alan Terrell MD [facility] ENDOCRINOLOGY [place], [place] [address] (Wo rk) documented as of this encounter Visit Diagnoses Diagnosis Intracranial hemorrhage Unspecified intracranial hemorrhage documented in this encounter Care Teams Behavioral Health Worker Relationship Specialty Start Date End Date France Lam MD PCP - General 05/02/13 02/04/20 [address] [place] [address] documented as of this encounter
--- OUTSIDE RECORDS SUMMARY | 2022-05-18 11:08 | XMS_ITS | Encounter Summary ---
:1945 Author Organization [facility] [place] [address] Care Team Providers Name Role Phone France Lam MD Primary Care Provider Encounter Details Date Type Department Care Team Description 12/08/2019 Telephone Neurosurgery at [facility] [place] [address] Social History Tobacco Use Types Packs/Day Years Used Date Smoking Tobacco: Every Day Cigarettes 0.5 Cigars Sex Assigned at Date Recorded Not on file documented as of this encounter Miscellaneous Notes Telephone Encounter - Elza Bradshaw - 12/22/2019 6:[address] in [facility] Telephone Encounter - Elza Bradshaw - 12/18/2019 3:43 PM EDT Left message at [facility] requesting they call back to advise if patient has been scheduled for CT. Telephone Encounter - Sarah Boucher - 12/08/2019 3:[address] order to [facility] to schedule, 12/16-12/18 for 12/22 TOV scheduled w/[facility] Telephone Encounter - Sarah Boucher - 12/08/2019 9:50 AM EDT RN, please put in CT order external=Josue Pt's called not able to come to [facility] on 12/[address] to have CT locally at [facility] call w/results. documented in this encounter Plan of Treatment Upcoming Encounters Date Type Specialty Care Team Description 06/30/2022 Office Visit Endocrinology Alan Terrell MD [facility] ENDOCRINOLOGY [place], [place] [address] (Wo rk) documented as of this encounter Visit Diagnoses Not on filedocumented in this encounter Care Teams Merchandise Team Manager Relationship Specialty Start Date End Date France Lam MD PCP - General 05/02/13 02/04/20 [address] [place] [address] documented as of this encounter
--- OUTSIDE RECORDS SUMMARY | 2022-05-18 11:08 | XMS_ITS | Encounter Summary ---
:1945 Author Organization [place] [address] Care Team Providers Name Role Phone France Lam MD Primary Care Provider Reason for Referral Consultation (Routine) - Specialty Diagnoses / Procedures Referred By Contact Refer red To Contact Cardiology Diagnoses Acute ST elevation myocardial infarction (STEMI) of inferior wall Darrell Glasgow MD [facility] [place] [address] Referral ID Status Reason Start Date Expiration Date Visits V isits Requested Authorized [id number] Consult, 12/08/2019 06/05/2020 1 1 Test & Treat Consultation (Routine) - Closed Specialty Diagnoses / Referred By Contact Referred To Contact Procedures Cardiac Rehabilitation Diagnoses ST elevation myocardial infarction involving right coronary artery Gretchen Yoon, Cardiac Rehab, [address] [place] [phone] Fax: Referral ID Status Reason Start Date Expiration Date Visits V isits Requested Authorized [id number] Closed Consult, 12/08/2019 06/05/2020 36 36 Test & Treat Reason for Visit Auth/Cert Specialty Diagnoses / Procedures Referred By Contact Refer red To Contact Diagnoses STEMI (ST elevation myocardial infarction) STEMI Procedures CARDIAC CATHETERIZATION Referral ID Status Reason Start Date Expiration Date Visits Requ ested Visits Authorized [id number] 1 1 Encounter Details Date Type Department Care Team Description 11/29/2019 - Hospital Encounter Cardiac Special YoungBarbra MD [facility] [place] [address] ST elevation myocardial infarction invol ving left main coronary artery; 12/08/2019 Care Unit Paris Lozano MD [facility] [place] [address] ST elevation myocardial infarction invol ving right coronary artery; [facility] Edema of upper extremity; Hospital Intracranial hemorrhage; [facility] Paroxysma l atrial fibrillation; Drive Acute pulmonary embolism, un specified pulmonary embolism type, unspecified whether acute cor pulmonale present; [place], [place] Acute ST elevat ion myocardial infarction (STEMI) of inferior wall [id number] Social History Tobacco Use Types Packs/Day Years [...] Luis Salinas Patient Age: 74 y.o. Language: Palauan Race: White Ethnicity: Not nor Admit date: [...] months on: antiplatelet therapy at discretion of warp placer - Repeat TTE in 3 months to reassess LV function - Repeat BMP in 1-2 weeks given recent start lisinopril - Referred to lipid clinic for consideration of PCSK-9 inhibitor given STEMI with intolerance of statins - Started on amiodarone this admission for recurrent rapid atrial flutter with rates ~170, recommendcontinued assessment of necessity of rhythm control strategy with warp placer - Amiodarone monitoring recommendations as below - [...] contact your inpatient physician through the [facility] Adjunct Lecturer . Issues after hours and on weekends [...] took two full strength aspirinand came to [facility] ED. At there was [...] Compazine. He was transferred directly to [facility] via [facility] for further management. Patient had an emergent PCI with 3 MACARIO stents placed to his RCA, with mild disease of LCX (report pending) at [facility]. He was found to be persistently hypotensive requiring Levo up to 10mcg/min. He was transferred to [facility] after the cath procedure. Bedside RHC [...] drip as described above. On arrival at [facility] he was taken for [...] number below. Electronically signed by: Estefani Harris [facility] ([phone]), at 11/29/2019 4:[address] Head wo Contrast (Generic) (Exam End: 11/30/2019 10:41 AM) Impression Focal hemorrhage with small amount of adjacent edema projecting in the region of the left optic tract. Thank you for letting us participate in the care of this patient. For questions regarding this report, please contact the number below. Electronically signed by: [facility] ([phone]), at 11/30/2019 12:[address] Head wo [...] Electronically signed by: Angel Luis [facility] ([phone]), at 11/30/2019 5:[address] Angiogram [place] of [place] (Exam End: 11/30/2019 4:36 PM) Impression Head CT: Stable hemorrhage in the region of the left optic tract. CTA: Negative exam. No abnormal vasculature in the area of hemorrhage. Thank you for letting us participate in the care of this patient. For questions regarding this report, please contact the number below. Electronically signed by: Angel Luis [facility] ([phone]), at 11/30/2019 5:04 PM MRI Brain wo [...] Electronically signed by: Angel Luis Barboza MD, [facility] ([phone]), at 12/01/2019 8:02 PM XR Chest One [...] number below. Electronically signed by: Latoya Ivey [facility] ([phone]), at 11/30/2019 8:[address] Head wo [...] number below. Electronically signed by: Merari Collins [facility] ([phone]), at 12/01/2019 3:53 PM XR Chest One View (Exam End: 12/02/2019 1:00 PM) Impression Slightly increased small bibasilar pleural effusions and atelectasis. Thank you for letting us participate in the care of this patient. For questions regarding this report, please contact the number below. Electronically signed by: Ashly Marley [facility] ([phone]), at 12/02/2019 1:[address] Cardiac for [...] number below. Electronically signed by: Roselyn Luciano [facility] ([phone]), at 12/04/2019 6:16 PM MRI Brain wwo Contrast (Generic) (Exam End: 12/05/2019 7:59 PM) Impression No significant interval change. Thank you for letting us participate in the care of this patient. For questions regarding this report, please contact the number below. Electronically signed by: Merari Collins [facility] ([phone]), at 12/05/2019 10:[address] Head wo [...] number below. Electronically signed by: Merari Collins [facility] ([phone]), at 12/06/2019 10:06 PM Pending Studies and Lab Data: N/A Discharge Conditions/Prognosis: stable Discharge to: home Updated Allergies/ADRs: Allergies Allergen Reactions ??? Penicillins Pt doesn't remember reaction ??? Sevoerj-Mrq-Hfz Reductase Inhibitors Stiff neck, upset stomach, back [...] at another hospital and then at [facility] you had a stent [...] FOR ONE MONTH AND THEN STOP. Your warp placer may tell you to start this medication again after one year. Clopidogrel (Plavix) 75 mg daily - This medication will help prevent clots from forming in your blood, which will help protect the stent that was placed in your heart vessel. TAKE THIS FOR ONE YEAR ANDTHEN DISCUSS WITH YOUR INFORMATION TECHNOLOGY ASSOCIATE WHETHER TO STOP. Amiodarone 400mg twice daily [...] follow up: Your primary care provider and warp placer will manage your blood thinner (apixaban). You do not need lab monitoring of this medication. Diet: Please consume a healthy diet low in cholesterol Follow up Appointments: 12/10/2019 at 3:10PM with PCP Angel Luis Lott Future Appointments Date Time Provider Department Center 12/23/2019 1:30 PM Alfreda Salas APRN [address] 12/26/2019 9:40 AM Merlin Sanchez MD [facility] CARD 4A [facility] 12/30/2019 3:40 PM Gretchen Yoon MD [facility] 4A [facility] Future Appointments and Orders Future Appointments and Orders Future Appointments Provider Department Dept Phone 12/23/2019 1:30 PM Alfreda Salas APRN Neurosurgery at [facility] Arrive at: Home [phone] Please do not come in for this visit. Your provider will call you at the number you provided. 12/26/2019 9:40 AM Merlin Sanchez MD Cardiology at [facility] Arrive at: Home [phone] Please do not come in for this visit. Your provider will call you at the number you provided. 12/30/2019 3:40 PM Gretchen Yoon MD Cardiology at [facility] Arrive at: Home [phone] Please do not come in for this visit. Your provider will call you at the number you provided. Future Orders Complete By Expires Referral to Cardiac Rehab [GBQ767 Custom] As directed Process Instructions: If no [...] Referral to Home Health - at DISCHARGE [IMA9563 CPT(R)] As directed Process Instructions: Scheduling Instructions: Comments: DOCUMENTATION FOR VNA SERVICES PATIENT'S LOCATION: Angel Luis Corcoran [address] [phone] (home) Central Office Frame Wirer's Name: Self In discussion with the attending physician, it is certified that this patient is under his/her care and that MD, or an ELECTRICAL ENGINEERING INTERN, LADIES' LOCKER ROOM ATTENDANT, or PA who is working directly with him/her, had a sjur-uw-qzzu encounter that meets the physician hcqq-og-mvks encounter requirements with this patient on 12/07/2019. [...] HEALTH CARE AGENCY: [facility], PHONE: [phone] FAX: [phone] Start of care: 24-48 hours after hospital [...] MD [address] / [place] [id number] All A agencies which cover the area [...] info: PCP Your PCP: France Lam MD [phone] For questions regarding this document or issues relating to this hospitalization on the Cardiology Service, please contact your inpatient physician through the [facility] Adjunct Lecturer . Issues after hours and on weekends will be handled by the General Merchandise Salesperson on-call. Patient Instructions: Neurology Your Diagnosis: Left [...] follow-up appointment in the neurology clinic at [facility]. See below for the appointment [...] PM Alfreda Salas APRN Neurosurgery at [facility] Arrive at: Home [phone] Please do not come in for this visit. Your provider will call you at the number you provided. 12/26/2019 9:40 AM Merlin Sanchez MD Cardiology at [facility] Arrive at: Home [phone] Please do not come in for this visit. Your provider will call you at the number you provided. 12/30/2019 3:40 PM Gretchen Yoon MD Cardiology at [facility] Arrive at: Home [phone] Please do not come in for this visit. Your provider will call you at the number you provided. Future Orders Complete By Expires Referral to Cardiac Rehab [[id number] Custom] As directed Process Instructions: If no [...] Referral to Home Health - at DISCHARGE [ZAW7169 CPT(R)] As directed Process Instructions: Scheduling Instructions: Comments: DOCUMENTATION FOR VNA SERVICES PATIENT'S LOCATION: [address] [phone] (home) Central Office Frame Wirer's Name: Self In discussion with the attending physician, it is certified that this patient is under his/her care and that MD, or an ELECTRICAL ENGINEERING INTERN, LADIES' LOCKER ROOM ATTENDANT, or PA who is working directly with him/her, had a fljn-cd-ppqd encounter that meets the physician eejd-rf-nptr encounter requirements with this patient on 12/07/2019. [...] HEALTH CARE AGENCY: [facility], PHONE: [phone] FAX: [phone] Start of care: 24-48 hours after hospital [...] France Lam MD [address] / [place] [address] All A agencies which cover the area [...] contact info: PCP Discharge References/Attachments Atrial Fibrillation (Palauan) Cardiac Rehabilitation (Palauan) Heart Failure (Palauan) Heart Failure: Limiting Sodium (Palauan) Hemorrhagic Stroke: General Info (Palauan) Smoking: Stopping (Palauan) Stroke Rehabilitation: General Info (Palauan) Pulmonary Embolism (Palauan) Riki Stevens MD PGY-3, Internal Medicine Cardiology S2, #[id number] Associated attestation - Shaka Lagos, Paris Lockett MD - 12/09/2019 4:44 PM EDT Cardiology Attending Discharge Addendum I was the assigned attending warp placer for this clinical encounter. For the purposes [...] complications include novel onset, paroxysmal atrial fibrillation [[id number]: 5] & L-sided diplopia with potential hemineglect [...] My contact information: Paris Matt MD MPH [address], [place] [phone] (office); Pager #[phone] Email: [email or web address] documented in this encounter Discharge Instructions Patient InstructionsFiRiki de jesus MD - 12/02/2019 9:56 AM EDT Images from the original note were not included. Why you were hospitalized: You had a heart attack. You received clot-busting medications at another hospital and then at [facility] you had a stent [...] FOR ONE MONTH AND THEN STOP. Your warp placer may tell you to start this medication again after one year. Clopidogrel (Plavix) 75 mg daily - This medication will help prevent clots from forming in your blood, which will help protect the stent that was placed in your heart vessel. TAKE THIS FOR ONE YEAR ANDTHEN DISCUSS WITH YOUR INFORMATION TECHNOLOGY ASSOCIATE WHETHER TO STOP. Amiodarone 400mg twice daily [...] follow up: Your primary care provider and warp placer will manage your blood thinner (apixaban). You do not need lab monitoring of this medication. Diet: Please consume a healthy diet low in cholesterol Follow up Appointments: 12/10/2019 at 3:10PM with PCP Angel Luis Lott Future Appointments Date Time Provider Department Center 12/23/2019 1:30 PM Alfreda Salas APRN [facility] OFFDI7D [facility] 12/26/2019 9:40 AM Merlin Sanchez MD [facility] CARD 4A [facility] 12/30/2019 3:40 PM Gretchen Yoon MD [facility] CARD 4A [facility] Future Appointments and Orders Future Appointments and Orders Future Appointments Provider Department Dept Phone 12/23/2019 1:30 PM Alfreda Salas APRN Neurosurgery at [facility] Arrive at: Home [phone] Please do not come in for this visit. Your provider will call you at the number you provided. 12/26/2019 9:40 AM Merlin Sanchez MD Cardiology at [facility] Arrive at: Home [phone] Please do not come in for this visit. Your provider will call you at the number you provided. 12/30/2019 3:40 PM Gretchen Yoon MD Cardiology at [facility] Arrive at: Home [phone] Please do not come in for this visit. Your provider will call you at the number you provided. Future Orders Complete By Expires Referral to Cardiac Rehab [[id number] Custom] As directed Process Instructions: If no [...] Referral to Home Health - at DISCHARGE [[id number] CPT(R)] As directed Process Instructions: Scheduling Instructions: Comments: DOCUMENTATION FOR VNA SERVICES PATIENT'S LOCATION: [address] [phone] (home) Central Office Frame Wirer's Name: Self In discussion with the attending physician, it is certified that this patient is under his/her care and that MD, or an ELECTRICAL ENGINEERING INTERN, LADIES' LOCKER ROOM ATTENDANT, or PA who is working directly with him/her, had a rrgk-hb-fkdh encounter that meets the physician xqmd-ul-zyoi encounter requirements with this patient on 12/07/2019. [...] HEALTH CARE AGENCY: [facility], PHONE: [phone] FAX: [phone] Start of care: 24-48 hours after hospital [...] MD [address] / [place] [address] All A agencies which cover the area [...] info: PCP Your PCP: France Lam MD [phone] For questions regarding this document or issues relating to this hospitalization on the Cardiology Service, please contact your inpatient physician through the [facility] Adjunct Lecturer . Issues after hours and on weekends will be handled by the General Merchandise Salesperson on-call. Patient Instructions: Neurology Your Diagnosis: Left [...] follow-up appointment in the neurology clinic at [facility]. See below for the appointment time. If you do not have an appointment, you will be called with a time/date for this appointment. ??? Primary Care Provider: Please follow up with your Primary Care Provider within one to 2 weeks ofdischarge. AttachmentsThe following attachments cannot be sent through Care Everywhere. Atrial Fibrillation (Palauan)Cardiac Rehabilitation (Palauan)Heart Failure (Palauan)Heart Failure: Limiting Sodium (Palauan)Hemorrhagic Stroke: General Info (Palauan)Smoking: Stopping (Palauan)Stroke Rehabilitation: General Info (Palauan)Pulmonary Embolism (Palauan)documented in this encounter Medications at Time of [...] consulted in the interim. Vikash Rodriguez Pager: [phone] Paris Dodd MD - 12/08/2019 8:57 AM [...] complications include novel onset, paroxysmal atrial fibrillation [[id number]: 5] & L-sided diplopia with potential hemineglect [...] consulted in the interim. Vikash Rodriguez Pager: [phone] Paris Dodd MD - 12/07/2019 9:55 AM [...] complications include novel onset, paroxysmal atrial fibrillation [RFC5YE3UWPK: 5] & L-sided diplopia with potential hemineglect [...] complications include novel onset, paroxysmal atrial fibrillation [REV9BE6ZUUN: 5] & L-sided diplopia with potential hemineglect [...] complications include novel onset, paroxysmal atrial fibrillation [KRI1HG3IFWJ: 5] & L-sided diplopia with potential hemineglect [...] today; additional complications include paroxysmal atrial fibrillation [IJF9HE4VBMU: 4] c/b possible cardioembolic stroke, ICH from [...] length from neck/greatest diameter to back wall: ESTONIAN 91, CAU 13: 19 mm CORTES 1, [...] a non-culprit artery. S/P DESx3 in the xigzhcpp-af-gddyjx RCA. Aspiration thrombectomy performed, and integrellin bolus [...] complications include novel onset, paroxysmal atrial fibrillation [BHV8KP7EWJM: 5] & L-sided diplopia with potential hemineglect [...] R occipital cardioembolic stroke #Paroxysmal Afib with YJ0XRFPV4L score of 5 #New segmental bilateral PEs [...] Glasgow MD PGY1, Internal Medicine Cardiology S2, #0529 Associated attestation - Paris Dodd MD - 12/05/2019 2:59 PM EDT I was the assigned attending warp placer for this clinical encounter. For the purposes [...] 10:36 AM EDT Office of Care Management(OCM)/Vp Informatics(CM)/Discharge Planning Service: Cardiology S2 team CM Bernie Alexander,RN,BSN,MA,ACM pgr [phone] Reviewed record and in Cardiology Rounds with MD team,CMs, hazardous materials waste technician, MOBILE TESTER. Pt is anticipated ready for d/c later [...] to his PCP and to any [facility] appt for each to [...] complications include novel onset, paroxysmal atrial fibrillation [PDM9SP8UJKN: 4] & L-sided diplopia with potential hemineglect [...] a non-culprit artery. S/P DESx3 in the bxtwopyp-nv-yezfsd RCA. Aspiration thrombectomy performed, and integrellin bolus [...] complications include novel onset, paroxysmal atrial fibrillation [RRA0DQ2FITN: 5] & L-sided diplopia with potential hemineglect [...] R occipital cardioembolic stroke #Paroxysmal Afib with CX0QNNIP3O score of 5 - No anticoagulation for [...] Glasgow MD PGY1, Internal Medicine Cardiology S2, #1876 I have seen the patient and reviewed [...] in my clinic. Gretchen Yoon MD Pager [phone] Derian Pascual RN - 12/03/2019 9:29 AM [...] None Electronically signed: Derian Pascual RN, Vp Informatics Pgr: [phone] 12/03/2019 9:29 AM Gretchen Yoon MD - 12/03/2019 9:01 AM EDT Inpatient Cardiology Progress Note Patient Name: Angel Luis Salinas Date of Admission: 11/29/2019 ( Hospital Day 4 days ) Service: S2 ID: Mr. nAgel Luis Salinas is a 74 year old [...] complications include novel onset, paroxysmal atrial fibrillation [SNP4IP7JBUH: 4] & L-sided diplopia with potential hemineglect [...] a non-culprit artery. S/P DESx3 in the wmvbxutm-xk-rbqivr RCA. Aspiration thrombectomy performed, and integrellin bolus [...] complications include novel onset, paroxysmal atrial fibrillation [LEZ7VK6VBYC: 5] & L-sided diplopia with potential hemineglect [...] [facility] and follow up with his PCP. Patient voiced strong will to quit smoking now, understood that we have resources available for help. Plan [P]: --Neurologic-- # Concern for Left-Sided Diplopia, r/o Hemineglect # Concern for CVA, last-known well 11/29/19 - MRI showed possible cardioembolic stroke #Afib with IY1NHUCC8R score of 5 - Stroke Team Consulted; [...] Anticoagulation/Arrhythmia # Novel Onset, Paroxsymal Atrial Fibrillation [JEK6VW9JPFP: 5] - Hold off anticoagulation for at [...] straight cath prn # Nutrition - [facility] Diet, 2g Na. -- [...] Glasgow MD PGY1, Internal Medicine Cardiology S2, #8033 I have seen the patient and reviewed the resident's above history and I agree with the details as written. The assessment and plan were formulated in discussion with me and I agree with them as documented. Gretchen Yoon MD Pager [phone] Raul Hein RN - 12/03/2019 5:55 AM [...] Negative mcL Appearance UA Clear Clear Spec [place] UA 1.026 1.006 - 1.030 Color UA [...] PGY3 Neurology Resident 12/01/2019 Vascular Neurology Pager [phone] Neurology Attending Attestation I evaluated the patient [...] Deepthi Roman MD Vascular Neurology Standard [facility] Swallow Screen: This screen [...] as medical provider deems appropriate. Consider STOCK CONTROLLER consult for full evaluation and diet recommendations. [...] complications include novel onset, paroxysmal atrial fibrillation [FKS8AE9VPCC: 4] & L-sided diplopia with potential hemineglect [...] a non-culprit artery. S/P DESx3 in the kuuouise-tj-winodx RCA. Aspiration thrombectomy performed, and integrellin bolus [...] complications include novel onset, paroxysmal atrial fibrillation [ZEW5TI4NAFM: 5] & L-sided diplopia with potential hemineglect [...] Anticoagulation/Arrhythmia # Novel Onset, Paroxsymal Atrial Fibrillation [BGC7CG4USXG: 5] - Hold off anticoagulation - pending [...] d/t low BP. # Nutrition - [facility] Diet -- Hematology/Oncology-- # [...] Glasgow MD PGY1, Internal Medicine Cardiology S2, #5265 I have seen the patient and reviewed [...] the ICU team. Gretchen Yoon MD Pager [phone] Natalia Claros APRN - 12/02/2019 8:38 AM [...] - We are signing off. Please page [phone] with any questions or concerns. For questions please call [facility] pager [phone] Natalia Claros APRN 12/02/2019 8:38 AM Clinical Documentation Improvement: Active Hospital Problems Diagnosis ??? Acute ST elevation myocardial infarction (STEMI) of inferior wall ??? Intracranial hemorrhage ??? Hyperlipidemia ??? Tobacco abuse ??? Claudication from peripheral vascular disease, left Resolved Hospital Problems No resolved problems to display. Tello Hsu, [employer] OR LECTURE HALL MANAGER - 12/02/2019 2:06 AM EDT 12/01/192009 [...] number below. Electronically signed by: Latoya Ivey [facility] ([phone]), at 11/30/2019 8:32 PM ASSESSMENT: Patient states he is breathing easier than last night. Still increased WOB PLAN: Wean FiO2 as tolerated. Patient to CT Scan in afternoon. Upon arrival back in [facility] placed on low flow NC at [...] complications include novel onset, paroxysmal atrial fibrillation [BBK4NO5WUEP: 4] & L-sided diplopia with potential hemineglect for which CVA evaluationto be pursued. Active Problems/Subjective: - 11/28: admitted for inferior STEMI, RV failure requiring pressor - got lytics, aspirin and plavix load, heparin gtt, and eptifibatide. 3 MACARIO stents to RCA. [place] cath - low wedge & CVP so [...] a non-culprit artery. S/P DESx3 in the hjdvrfrp-qi-qpfeyf RCA. Aspiration thrombectomy performed, and integrellin bolus [...] complications include novel onset, paroxysmal atrial fibrillation [HEC7NT2OBPB: 4] & L-sided diplopia with potential hemineglect [...] Anticoagulation/Arrhythmia # Novel Onset, Paroxsymal Atrial Fibrillation [PZI8PF9JFCU: 4] - Obtain: TTE - Pending CVA [...] d/t low BP. # Nutrition - [facility] Diet -- Hematology/Oncology-- # [...] MD, PGY1 PGY3, Internal Medicine Cardiology S2, #7383 I have seen the patient and reviewed [...] down the line. Gretchen Yoon MD Pager [phone] ?? Gretchen Yoon MD Pager [phone] Natalia Claros APRN - 12/01/2019 1:33 AM [...] per primary team For questions please call [employer] pager [phone] Natalia Claros APRN 12/01/2019 7:42 AM Clinical Documentation Improvement: Active Hospital Problems Diagnosis ??? Acute ST elevation myocardial infarction (STEMI) of inferior wall ??? Intracranial hemorrhage ??? Hyperlipidemia ??? Tobacco abuse ??? Claudication from peripheral vascular disease, left Resolved Hospital Problems No resolved problems to display. Tello Hsu, CONCERT OR LECTURE HALL MANAGER - 11/30/2019 8:44 PM EDT Respiratory [...] number below. Electronically signed by: Latoya Ivey [facility] ([phone]), at 11/30/2019 8:32 PM ASSESSMENT: Patient had [...] EDT Narrative:Visited in response to request for Registered Safety Engineer services. Pt was awake, alert, oriented and in bed. Assessment:Patient coping positively with stresses of illness/hospitalization at this time. Pt says that he is hoping to get better and pt is living with and has children and grandchildren. Pt haspurpose of life and has reason to get getter and to be with family. Outcome: Provided emotional and spiritual support and encouraging presence. Registered Safety Engineer services accepted.Conversation to build trusting relationship.Provided [...] complications include novel onset, paroxysmal atrial fibrillation [[id number]: 4] & L-sided diplopia with potential hemineglect for which CVA evaluationto be pursued. Active Problems/Subjective: - Overnight, CVP < 12 for which a total of 1 L IVF provided - Today AM, patient complains of subjectively reported, left-sided hemineglect with floaters and diplopia [see: exam]. - Otherwise, c/o neck pain 2/2 R IJ [place] & L radial A line. Otherwise, denies [...] a non-culprit artery. S/P DESx3 in the fqnxsanh-kx-utnfii RCA. Aspiration thrombectomy performed, and integrellin bolus [...] complications include novel onset, paroxysmal atrial fibrillation [[id number]: 4] & L-sided diplopia with potential hemineglect [...] Anticoagulation/Arrhythmia # Novel Onset, Paroxsymal Atrial Fibrillation [[id number]: 4] - Obtain: TTE to confirm rhythm [...] d/t low BP. # Nutrition - [facility] Diet -- Hematology/Oncology-- # [...] MD, PGY3 PGY3, Internal Medicine Cardiology S2, #1280 I have seen the patient and reviewed [...] down the line. Gretchen Yoon MD Pager [phone] Paola Capps RN - 11/30/2019 6:57 AM EDT PT still requiring 4 of levo, several attempts to titrate down (maps in 70;s) But maps would drop toless than 65. Pt very restless in bed Raising and lowering head denies pain . Integrillin stopped [id number] when bottle complete , urine tea colored [...] PCP: France Lam MD PCP phone #: [phone] Shutdown Coordinator: None ID/Chief Complaint: Chest pain History of Present Illness: 74 y.o male with no significant PMH, was in usual state of health until yesterday when he woke up at 4am this morning with severe crushing substernal chest pain /. He took two full strength aspirin and came to [facility] ED. At there was [...] Compazine. He was transferred directly to [facility] via [facility] for further management. Patient had an emergent PCI with 3 MACAIRO stents placed to his RCA, with mild disease of LCX (report pending) at [facility]. He was found to be persistently hypotensive requiring Levo up to 10mcg/min. He was transferred to [facility] after the cath procedure. Bedside RHC [...] ??? Penicillins Pt doesn't remember reaction ??? Muieiyq-Lxe-Aii Reductase Inhibitors Stiff neck, upset stomach, back pain Family History: Mother: Father: [place] 2 Uncles with MIs Social History: Tobacco: Current active smoker 1 ppd. 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 Vitals: Last value Range [...] in the last 7068 hours. Invalid input(s): [id number] Heme: No results for input(s): LDH, HAPTOGLOBIN, [...] prior to transfer and PCI at [facility]. Massive inferior STEMI with troponin level 20, currently in CVCC due to pressor requirement. BedsideRHC demonstrated evidence of elevated right sided heart failure, but his wedge was wnl. He received 1L bolus with improvement of his blood pressure and reduction of his pressor requirement. PLAN: Admit to Cardiology, S2 Team Pager # [phone] #Inferior STEMI, LEYLA 149 - Resolving EKG [...] STEMI s/p lytic therapy. Transferred to [facility] and underwent successful PCI of the RCA with MACARIO x3. Gretchen Yoon MD Pager [phone] documented in this encounter Procedure Notes Juventino [...] to the planned procedure. Hand Hygiene: The sequins stringer did perform hand hygiene prior to arterial [...] a suspected line-associated infection. Location of Procedure: [facility] Risks and Benefits: The risks and [...] to the planned procedure. Hand Hygiene: The sequins stringer did perform hand hygiene prior to line [...] side:right An Introducer (PSI Kit) was used. [place]. Insertion Side: right. Insertion Site: internal jugular. Catheter Details: Number of Lumens: 1 Catheter Type: heparin-coated The line was placed over a guidewire. Confirmation of Venous Placement: Venous placement was confirmed by transducing the pressure. Introducer Insertion Attempts: 1 Comments: Floating the [place] Catheter Attempts: 1 Comments: Sterile Dressing: Biopatch [...] better pt back in SR. Please page [phone] for any more cares or concerns Plan [...] complications include novel onset, paroxysmal atrial fibrillation [[id number]: 5]& L-sided diplopia with potential hemineglect for [...] Total Evaluation Minutes, Occupational Therapy: 10 Pager: [phone] FRANCINE Nuñez Occupational Therapy Rehabilitation Department Plan [...] complications include novel onset, paroxysmal atrial fibrillation [[id number]: 5] & L-sided diplopia with potential hemineglect [...] hand rails). Baseline Mobility: Independent. Drives. 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 Time IN / OUT: 6380-5484 Total Evaluation Minutes, Physical Therapy: 15(gtx1) Barbara Baldwin, PT Pager: [phone] Physical Therapy Inpatient Rehabilitation Department Plan of [...] he receives all he needs through the [facility]. Consult refused. Romain Trna, MSN, RN-, [facility] Tobacco Functional Director [facility] Pager #[phone] Plan of Care - Romain Oglesby OT [...] complications include novel onset, paroxysmal atrial fibrillation [[id number]: 5] & L-sided diplopia with potential hemineglect [...] and measurable assessment of functional outcome. Pager: [phone] ROMAIN OGLESBY OT 12/03/2019 Occupational Therapy Rehabilitation [...] complications include novel onset, paroxysmal atrial fibrillation [[id number]: 5] & L-sided diplopia with potential hemineglect [...] hand rails). Baseline Mobility: Independent. Drives. 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 Time IN / OUT: 5741-3543 Total Evaluation Minutes, Physical Therapy: 25(eval, gtx1) Barbara Baldwin, PT Pager: [phone] Physical Therapy Inpatient Rehabilitation Department Consult Note [...] Cuff, ECG Leads, gutierres, IV sites, SCD's/venodynes, Alexander sites - tubing, A line Board Nutritional [...] Please contact JOHANNA NOBLES RN on pager [phone] or the wound care team at [phone] or pager [phone] skin and wound care concerns or questions. [...] law. Any patient receiving carspousee at [facility] must abide by [place] law. The hierarchy [...] (i) The agent with financial power of finance attorney or a conservator appointed in accordance [...] Insurance: N/A Prescription Coverage: Yes Preferred Pharmacy: [place], [place] Other: No Primary Care Provider: France Lam MD [phone] Patient/Caregiver Goals of Treatment: Return home Potential Needs for Transition of Care: Rehab/SNF: Based on discussions with the multi-disciplinary healthcare team, the patient would benefit from SNF level of care at discharge. ?? I have met with the patient to discuss discharge planning needs. I have provided the [facility], Officeof Care Management letter from the Senior Cyber Security Analyst pertaining to rehab referrals. I have also [...] patient have requested ref[facility] to: ?? [facility] [address] [place] [address] ?? [address]. [address] , [place] [address] Note routed to Cook Chief who will communicate referrals to facilities and provide any required information. Home Health: If therapies recommend home w/ VNA, the patient has been provided a list of Home Health Agencies/DME vendors which serve their preferred geographic area. A letter describing our affiliations was reviewed with them and they were educated about their right to choose where referrals are placed. Patient requests referral to [facility] [employer]. PHONE: [phone] FAX: [phone] Referral routed to the Cook Chief for matching with agency/vendor and to provide [...] w/ Medicare. Gets medications filled at [facility] in [place], [place]. Son to transport at discharge Plan: Discharge dispo depending on patient's physical recovery; SNF vs home w/ VNA. A member of the Care Management team will continue to monitor progress, follow for continuity of care and assist with transition of care planning. Derian Pascual, RN Pager: [phone] Plan of Care - Estefani Baeza RN [...] ??? Penicillins Pt doesn't remember reaction ??? Nibnhpz-Qyx-Hgk Reductase Inhibitors Stiff neck, upset stomach, back [...] noncontrast head CT and CT of the [place] at 1600 hrs. We will [...] concerning for stroke. Patient presented to [facility] in transfer for a [...] ??? Penicillins Pt doesn't remember reaction ??? Xmkjnqe-Xsg-Spg Reductase Inhibitors Stiff neck, upset stomach, back [...] L Elbow flexion 5/5 R, 5/5 L Mechanical Supervisor LE: 5/5 R, 5/5 L Hip flexion [...] PGY3 Neurology Resident 11/30/2019 Vascular Neurology Pager [phone] Standard [facility] Swallow Screen: This screen [...] as medical provider deems appropriate. Consider STOCK CONTROLLER consult for full evaluation and diet recommendations. [...] Afib admitted s/p thrombolysis and Cath-Stent to [facility] who developed R sided [...] hours. Evan Mejia MD Department of Neurology [facility] Brief Op Note - Gretchen Yoon MD - 11/29/2019 8:38 PM EDT Brief Operative Note Patient Name: Angel Luis Salinas : [id number] MR#: [id number] Case Date: 11/29/2019 Surgeon: Surgeon(s) and Role: * Gretchen Yoon MD - Primary * Aidan Ward MD - Fellow Preoperative diagnosis: Inferior STEMI Postoperative diagnosis: Inferior STEMI Procedure(s) (LRB): CARDIAC CATHETERIZATION (N/A) Findings: Discrete 90% stenosis in the prox-to-mid RCA. Severe diffuse disease in the distal vessel. Discrete LCX stenosis in a non-culprit artery. S/P DESx3 in the mfcwttzd-tz-qhiwcr RCA. Aspiration thrombectomy performed, and integrellin bolus x2+ infusion. Nicardipine given during case due to intermittent sluggish flow. Complications: None documented in this encounter Plan of Treatment Upcoming Encounters Date Type Specialty Care Team Description 06/30/2022 Office Visit Endocrinology Alan Terrell MD [facility] [address] ENDOCRINOLOGY [place], [place] [address] (Wo rk) Scheduled Referrals Name [...] are i n the results section. CT [facility] [place] W STAT 11/30/2019 4:36 Res [...] athologist Signature Potassium 3.9 3.5 - 5.0 [facility] [employer] mmol/L [facility] Comment: Please note: ??Patients with WBC [...] Organization Address City/State/[place] [address] (ABNORMAL) Hemogram (12/08/2019 12:39 PM EDT) Analysis Performed At Patho logist Time Signature WBC 9.9 (H) 4.0 - 9.5 M[place] JAN x10(3)/[facility] LABORATORY RBC 4.51 (L) 4.58 - MEL[place] JAN 5.54 [facility] x10(6)/[facility] LABORATORY Hemoglobin 13.0 (L) 13.7 - MELINA JAN 16.5 gm/dL [facility] Hematocrit 40.5 40.5 - [employer] 48.5 % [facility] MCV 89.8 82.9 - M[place] JAN 93.1 [facility] LABORATORY MCH 28.8 27.5 - [employer]AN 32.1 pg [facility] MCHC 32.1 32.0 - [place] JAN 35.7 gm/dL [facility] Platelets 214 145 - 357 MELINA [employer] x10(3)/[facility] LABORATORY RDWSD 49.2 (H) 36.0 - [employer]AN 45.0 [facility] LABORATORY RDWCV 15.1 (H) 11.4 - MEL[place] JAN 13.8 % [facility] MPV 12.1 7.6 - 12.9 [facility] nRBC % Auto 0.0 % [facility] nRBC Abs Auto 0.000 0.000 - MEL[place] JAN 0.000 [facility] x10(3)/[facility] LABORATORY Specimen Anatomical Collection Method Collection Time Receive d Time (Source) Location / / Volume Laterality Blood specimen 12/08/2019 12:39 0 (specimen) PM EDT 12:47 PM EDT Resulting Agency Comment Spec In Lab Gretchen Yoon MD HEMATOLOGY ORDERABLES Performing Organization Address City/[facility]/ZIP Code Phon e Number [address] Hepatic Function Panel (12/08/2019 6:28 AM EDT) athologist Signature Total Protein 6.6 6.1 - 8.0 MELINA JAN gm/dL [facility] Albumin 3.2 3.2 - 5.2 [facility] JAN gm/dL [facility] AST 18 0 - 39 [facility] ALT 13 0 - 55 [facility]/L [facility] Alk Phos 64 40 - 130 [facility]L [facility] Total 0.4 0.2 - 1.3 [facility] JAN Bilirubin mg/dL [facility] Bili, Direct 0.1 0.0 - 0.3 [facility] JAN mg/dL [facility] Specimen Anatomical Collection Method Collection Time Receive d Time (Source) Location / / Volume Laterality Blood specimen Venous Draw / 12/08/2019 6:28 AM 2019 6:36 (specimen) Unknown EDT AM EDT Resulting Agency Comment Spec In Lab Riki Stevens MD CHEMISTRY ORDERABLES Performing Organization Address City/[facility]/ZIP Code Phon e Number [address] (ABNORMAL) TSH (12/08/2019 6:28 AM EDT) athologist Signature TSH 5.27 (H) 0.27 - 4.20 MEL[place] JAN mcIU/mL [facility] Specimen Anatomical Collection Method Collection Time Receive d Time (Source) Location / / Volume Laterality Blood specimen Venous Draw / 12/08/2019 6:28 AM 2019 6:36 (specimen) Unknown EDT AM EDT Resulting Agency Comment Spec In Lab Darrell Glasgow MD CHEMISTRY ORDERABLES Performing Organization Address City/[facility]/[place] [address] Potassium (12/08/2019 6:28 AM EDT) P athologist Signature Potassium 4.2 3.5 - 5.0 [facility] mmol/L [facility] Comment: Please note: ??Patients with WBC [...] Lagos MD CHEMISTRY ORDERABLES Performing Organization Address City/[facility]/[place] [address] (ABNORMAL) Differential, Automated (12/08/2019 12:43 AM EDT) Patholo gist Method Time Signature Neutrophils % 60.7 % [facility] Neutr Abs (ANC) 6.81 (H) 1.70 - [facility] 6.10 [facility] x10(3)/[facility] LABORATORY Lymphocytes % 23.4 % [facility] Lymphocytes Abs 2.6 0.9 - 3.2 [facility] x10(3)/[facility] LABORATORY Monocytes % 10.0 % [facility] Monocyte Abs 1.1 (H) 0.3 - 0.9 [facility] x10(3)/[facility] LABORATORY Eosinophils % 3.7 % [facility] Eosinophils Abs 0.4 0.0 - 0.4 [facility] x10(3)/[facility] LABORATORY Basophils % 1.2 % [facility] Basophils Abs 0.1 0.0 - 0.1 [facility] x10(3)/[facility] LABORATORY Immature Gran % 1.00 % GRACE [...] Gran Abs 0.11 (H) 0.00 - 0.04 x10(3)/[facility] LABORATORY Specimen Anatomical Collection Method Collection Time Receive d Time (Source) Location / / Volume Laterality Blood specimen 12/08/2019 12:43 0 (specimen) AM EDT 12:52 AM EDT Resulting Agency Comment Spec In Lab Riki Stevens MD HEMATOLOGY ORDERABLES Performing Organization Address City/State/ZIP Code Phon e Number [place] [id number] (ABNORMAL) Hemogram (12/08/2019 12:43 AM EDT) Analysis Performed At Patho logist Time Signature WBC 11.2 (H) 4.0 - 9.5 [facility] x10(3)/[facility] LABORATORY RBC 4.46 (L) 4.58 - [facility] 5.54 [facility] x10(6)/[facility] LABORATORY Hemoglobin 13.1 (L) 13.7 - [facility] 16.5 gm/dL [facility] Hematocrit 40.5 40.5 - [facility] 48.5 % [facility] MCV 90.8 82.9 - [facility] 93.1 [facility] LABORATORY MCH 29.4 27.5 - [facility] 32.1 pg [facility] MCHC 32.3 32.0 - [facility] 35.7 gm/dL [facility] Platelets 215 145 - 357 [facility] x10(3)/[facility] LABORATORY RDWSD 49.8 (H) 36.0 - [facility] JAN 45.0 [facility] RDWCV 15.2 (H) 11.4 - [facility] 13.8 % [facility] MPV 12.3 7.6 - 12.9 MELINA JAN [facility] LABORATORY nRBC % Auto 0.0 % [facility] nRBC Abs Auto 0.000 0.000 - MELINA MONAE 0.000 [facility] x10(3)/[facility] LABORATORY Specimen Anatomical Collection Method Collection Time Receive d Time (Source) Location / / Volume Laterality Blood specimen 12/08/2019 12:43 0 (specimen) AM EDT 12:52 AM EDT Resulting Agency Comment Spec In Lab Riki Stevens MD HEMATOLOGY ORDERABLES Performing Organization Address City/State/ZIP Code Phon e Number [address] Magnesium (12/08/2019 12:43 AM EDT) P athologist Signature Magnesium 1.01 0.69 - 1.07 [facility] mmol/L [facility] Specimen Anatomical Collection Method Collection Time Receive d Time (Source) Location / / Volume Laterality Blood specimen 12/08/2019 12:43 0 (specimen) AM EDT 12:52 AM EDT Resulting Agency Comment Spec In Lab Gretchen Yoon MD CHEMISTRY ORDERABLES Performing Organization Address City/State/ZIP Code Phon e Number [address] (ABNORMAL) BMP w/fasting Glucose (12/08/2019 12:43 AM EDT) P athologist Signature Glucose 106 (H) 65 - 99 [facility] Fasting mg/dL [facility] Comment: ?Fasting* Glucose Interpretive C riteria [...] of Diabetes Mellitus, Position Statement from the [place] [employer]. ??Diabete s Care, Volume 33, Supplement 1, Jul 2009 BUN 14 10 - 20 mg/dL [facility] Creatinine 1.16 0.80 - 1.50 mg/dL [facility] Sodium 134 (L) 135 - 145 mmol/L [facility] Potassium 4.0 3.5 - 5.0 mmol/L [facility] Comment: Please note: ??Patients with [...] LABORATORY Calcium 8.9 8.5 - 10.5 mg/dL [facility] Estimated GFR 62 >=60 mL/min/1.73 m?? [facility] Comment: The eGFR was calculated using the CKD-EP I equation. As with all creatinine based estimates of kidney function, eGFR values calculated with the CKD-EPI equation are not accurate in patients wi th acute kidney failure, extremes of body mass or the acutely ill. [email or web address]f eGFR 72 >=60 mL/min/1.73 m?? [facility] Comment: The eGFR was calculated using the CKD-EP I equation. As with all creatinine based estimates of kidney function, eGFR values calculated with the CKD-EPI equation are not accurate in patients wi th acute kidney failure, extremes of body mass or the acutely ill. [email or web address]/[facility]ONnkf Specimen Anatomical Collection Method Collection Time Receive d Time (Source) Location / / Volume Laterality Blood specimen 12/08/2019 12:43 0 (specimen) AM EDT 12:52 AM EDT Resulting Agency Comment Spec In Lab Gretchen Yoon MD CHEMISTRY ORDERABLES Performing Organization Address [facility] [place] [address] Heparin (unfractionated) Level (12/08/2019 12:43 AM EDT) athologist Signature Heparin UFH 0.60 IU/mL [facility] LABORATORY Comment: Guidelines for therapeutic unfractionate d [...] Lagos MD HEMATOLOGY ORDERABLES Performing Organization Address [facility]/ZIP Code Phon e Number [address] Potassium (12/07/2019 8:39 PM EDT) athologist Signature Potassium 4.1 3.5 - 5.0 [facility] mmol/L [facility] Comment: Please note: ??Patients with WBC [...] Lagos MD CHEMISTRY ORDERABLES Performing Organization Address City/[facility]/[place] [address] Potassium (12/07/2019 4:02 PM EDT) P athologist Signature Potassium 4.0 3.5 - 5.0 [facility] mmol/L [facility] Comment: Please note: ??Patients with WBC [...] Yoon MD CHEMISTRY ORDERABLES Performing Organization Address City/[facility]/[place] [address] (ABNORMAL) Hemogram (12/07/2019 4:02 PM EDT) Analysis Performed At Patho logist Time Signature WBC 17.4 (H) 4.0 - 9.5 MELINA JAN x10(3)/[facility] LABORATORY RBC 4.58 4.58 - [employer] 5.54 [facility] x10(6)/[facility] LABORATORY Hemoglobin 13.5 (L) 13.7 - MELINA JAN 16.5 gm/dL [facility] Hematocrit 40.8 40.5 - MELINA JAN 48.5 % [facility] MCV 89.1 82.9 - MELINA JAN 93.1 fL [facility] MCH 29.5 27.5 - MELINA JAN 32.1 [facility] LABORATORY MCHC 33.1 32.0 - MELINA MONAE 35.7 gm/dL [facility] Platelets 238 145 - 357 [facility] x10(3)/[facility] LABORATORY RDWSD 48.8 (H) 36.0 - MELINA MONAE 45.0 [facility] LABORATORY RDWCV 15.0 (H) 11.4 - [facility] JAN 13.8 % [facility] MPV 12.2 7.6 - 12.9 [facility] nRBC % Auto 0.0 % [facility] nRBC Abs Auto 0.000 0.000 - MELINA MARSHJAN 0.000 [facility] x10(3)/[facility] LABORATORY Specimen Anatomical Collection Method Collection Time Receive d Time (Source) Location / / Volume Laterality Blood specimen 12/07/2019 4:02 PM 020 4:08 (specimen) EDT PM EDT Resulting Agency Comment Spec In Lab Gretchen Yoon MD HEMATOLOGY ORDERABLES Performing Organization Address City/State/[place] [address] EKG 12 Lead (12/07/2019 [...] athologist Signature Potassium 4.2 3.5 - 5.0 [facility] mmol/L [facility] Comment: Please note: ??Patients with WBC [...] Organization Address City/State/[place] [address] Heparin (unfractionated) Level (12/07/2019 11:43 AM EDT) athologist Signature Heparin UFH 0.59 IU/mL [facility] Comment: Guidelines for therapeutic unfractionate d [...] Lagos MD HEMATOLOGY ORDERABLES Performing Organization Address City/[facility]/ZIP Code Phon e Number [place] [phone]OSP[address] LAB[address] Drive Heparin (unfractionated) Level (12/07/2019 5:20 AM EDT) P athologist Signature Heparin UFH 0.53 IU/mL [facility] Comment: Guidelines for therapeutic unfractionate d [...] Lagos MD HEMATOLOGY ORDERABLES Performing Organization Address [facility]/[place] [address] (ABNORMAL) Differential, Automated (12/07/2019 5:20 AM EDT) Patholo gist Method Time Signature Neutrophils % 62.4 % [facility] Neutr Abs (ANC) 5.46 1.70 - [facility] 6.10 [facility] x10(3)/[facility] LABORATORY Lymphocytes % 20.3 % [facility] Lymphocytes Abs 1.8 0.9 - 3.2 [facility] x10(3)/[facility] LABORATORY Monocytes % 11.0 % [facility] Monocyte Abs 1.0 (H) 0.3 - 0.9 [facility] x10(3)/[facility] LABORATORY Eosinophils % 4.5 % [facility] Eosinophils Abs 0.4 0.0 - 0.4 [facility] x10(3)/[facility] LABORATORY Basophils % 0.9 % [facility] Basophils Abs 0.1 0.0 - 0.1 [facility] x10(3)/[facility] LABORATORY Immature Gran % 0.90 % [...] Gran Abs 0.08 (H) 0.00 - 0.04 x10(3)/[facility] LABORATORY Specimen Anatomical Collection Method Collection Time Receive d Time (Source) Location / / Volume Laterality Blood specimen 12/07/2019 5:20 AM 020 5:37 (specimen) EDT AM EDT Resulting Agency Comment Spec In Lab Riki Stevens MD HEMATOLOGY ORDERABLES Performing Organization Address City/State/[place] [address] (ABNORMAL) Hemogram (12/07/2019 5:20 AM EDT) Analysis Performed At Patho logist Time Signature WBC 8.7 4.0 - 9.5 [facility] x10(3)/[facility] LABORATORY RBC 4.20 (L) 4.58 - [facility] 5.54 [facility] x10(6)/[facility] LABORATORY Hemoglobin 12.3 (L) 13.7 - [facility] 16.5 gm/dL [facility] Hematocrit 37.4 (L) 40.5 - MELINA MONAE 48.5 % [facility] MCV 89.0 82.9 - MELINA [place] 93.1 [facility]ORATORY MCH 29.3 27.5 - MELINA VILLANUEVACK 32.1 pg [facility] MCHC 32.9 32.0 - MELINA [place] 35.7 gm/dL [facility] Platelets 181 145 - 357 [facility] x10(3)/[facility] LABORATORY RDWSD 47.7 (H) 36.0 - MEL[place] 45.0 [facility] LABORATORY RDWCV 14.8 (H) 11.4 - MELINA MONAE 13.8 % [facility] MPV 12.3 7.6 - 12.9 MELINA MONAE [facility] LABORATORY nRBC % Auto 0.0 % [facility] nRBC Abs Auto 0.000 0.000 - MELINA MONAE 0.000 [facility] x10(3)/[facility] LABORATORY Specimen Anatomical Collection Method Collection Time Receive d Time (Source) Location / / Volume Laterality Blood specimen 12/07/2019 5:20 AM 020 5:37 (specimen) EDT AM EDT Resulting Agency Comment Spec In Lab Riki Stevens MD HEMATOLOGY ORDERABLES Performing Organization Address City/State/[place] [address] Magnesium (12/07/2019 5:20 AM EDT) P athologist Signature Magnesium 0.89 0.69 - 1.07 [facility] mmol/L [facility] Specimen Anatomical Collection Method Collection Time Receive d Time (Source) Location / / Volume Laterality Blood specimen 12/07/2019 5:20 AM 020 5:37 (specimen) EDT AM EDT Resulting Agency Comment Spec In Lab Gretchen Yoon MD CHEMISTRY ORDERABLES Performing Organization Address City/[facility]/ZIP Code Phon e Number [address] (ABNORMAL) BMP w/fasting Glucose (12/07/2019 5:20 AM EDT) P athologist Signature Glucose 100 (H) 65 - 99 [facility] Fasting mg/dL [facility] Comment: ?Fasting* Glucose Interpretive C riteria [...] of Diabetes Mellitus, Position Statement from the [place] [employer]. ??Diabete s Care, Volume 33, Supplement 1, Jul 2009 BUN 14 10 - 20 mg/dL [facility] Creatinine 0.83 0.80 - 1.50 mg/dL [facility] Sodium 135 135 - 145 mmol/L [facility] Potassium 3.8 3.5 - 5.0 mmol/L [facility] Comment: Please note: ??Patients with [...] LABORATORY Calcium 8.8 8.5 - 10.5 mg/dL [facility] Estimated GFR 87 >=60 mL/min/1.73 m?? [facility] Comment: The eGFR was calculated using the CKD-EP I equation. As with all creatinine based estimates of kidney function, eGFR values calculated with the CKD-EPI equation are not accurate in patients wi th acute kidney failure, extremes of body mass or the acutely ill. http://Hotelicopter/[facility]WTONnkf eGFR 101 >=60 mL/min/1.73 m?? [facility] Comment: The eGFR was calculated using the CKD-EP I equation. As with all creatinine based estimates of kidney function, eGFR values calculated with the CKD-EPI equation are not accurate in patients wi th acute kidney failure, extremes of body mass or the acutely ill. http://Hotelicopter/[facility]WTONnkf Specimen Anatomical Collection Method Collection Time Receive d Time (Source) Location / / Volume Laterality Blood specimen 12/07/2019 5:20 AM 020 5:37 (specimen) EDT AM EDT Resulting Agency Comment Spec In Lab Gretchen Yoon MD CHEMISTRY ORDERABLES Performing Organization Address City/State/[place] [address] Heparin (unfractionated) Level (12/06/2019 10:14 PM EDT) athologist Signature Heparin UFH 0.29 IU/mL [facility] Comment: Guidelines for therapeutic unfractionate d [...] Organization Address City/State/[place] [address] Head wo Contrast [...] For questions regarding this report, please contact [facility] number below. ? Electronically signed by: Merari Collins [facility] ([phone]), at 12/06/2019 10:06 PM Narrative 12/06/2019 10:06 [...] WBC 10.4 (H) 4.0 - 9.5 [facility] x[facility](3[facility]ATORY RBC 4.32 (L) 4.58 - [facility] JAN 5.54 [facility] x10(6)/[facility] LABORATORY Hemoglobin 12.5 (L) 13.7 - [facility] JAN 16.5 gm/dL [facility] Hematocrit 38.4 (L) 40.5 - [facility] 48.5 % [facility] MCV 88.9 82.9 - [facility] JAN 93.1 [facility] LABORATORY MCH 28.9 27.5 - MELINA JAN 32.1 pg [facility] MCHC 32.6 32.0 - [facility] JAN 35.7 gm/dL [facility] Platelets 194 145 - 357 [facility] x10(3)/[facility]ORATORY RDWSD 46.9 (H) 36.0 - [facility] JAN 45.0 [facility]ORATORY RDWCV 14.6 (H) 11.4 - [facility] JAN 13.8 % [facility] MPV 11.9 7.6 - 12.9 [facility] JAN [facility]OR[facility]ORY nRBC % Auto 0.0 % [facility] nRBC Abs Auto 0.000 0.000 - [facility] JAN 0.000 [facility] x10(3)/[facility] LABORATORY Specimen Anatomical Collection Method Collection Time Receive d Time (Source) Location / / Volume Laterality Blood specimen 12/06/2019 4:20 PM 020 4:31 (specimen) EDT PM EDT Resulting Agency Comment Spec In Lab Gretchen Yoon MD HEMATOLOGY ORDERABLES Performing Organization Address City/State/ZIP Code Phon e Number [place] [phone] HOSPITAL LAB[address]ORY Drive Heparin (unfractionated) Level (12/06/2019 4:20 PM EDT) athologist Signature Heparin UFH 0.30 IU/mL [facility] Comment: Guidelines for therapeutic unfractionate d [...] Organization Address City/State/ZIP Code Phon e Number [place] [phone] [facility] LAB[address]ORY Drive Heparin (unfractionated) Level (12/06/2019 10:02 AM EDT) athologist Signature Heparin UFH <0.04 IU/mL [facility] Comment: Guidelines for therapeutic unfractionate d [...] Lagos MD HEMATOLOGY ORDERABLES Performing Organization Address City/[facility]/[place] [address] Magnesium (12/06/2019 3:36 AM EDT) P athologist Signature Magnesium 0.86 0.69 - 1.07 [facility]/L [facility] Specimen Anatomical Collection Method Collection Time Receive d Time (Source) Location / / Volume Laterality Blood specimen 12/06/2019 3:36 AM 020 3:45 (specimen) EDT AM EDT Resulting Agency Comment Spec In Lab Gretchen Yoon MD CHEMISTRY ORDERABLES Performing Organization Address City/[facility]/[place] [address] (ABNORMAL) BMP w/fasting Glucose (12/06/2019 3:36 AM EDT) P athologist Signature Glucose 103 (H) 65 - 99 [facility] Fasting mg/dL [facility] Comment: ?Fasting* Glucose Interpretive C riteria [...] of Diabetes Mellitus, Position Statement from the [place] [employer]. ??Diabete s Care, Volume 33, Supplement 1, Jul 2009 BUN 20 10 - 20 mg/dL [facility] Creatinine 0.88 0.80 - 1.50 mg/dL [facility] Sodium 136 135 - 145 mmol/L [facility] Potassium 4.0 3.5 - 5.0 mmol/L [facility] Comment: Please note: ??Patients with [...] LABORATORY Calcium 8.7 8.5 - 10.5 mg/dL [facility] Estimated GFR 85 >=60 mL/min/1.73 m?? [facility] Comment: The eGFR was calculated using the CKD-EP I equation. As with all creatinine based estimates of kidney function, eGFR values calculated with the CKD-EPI equation are not accurate in patients wi th acute kidney failure, extremes of body mass or the acutely ill. http://Hotelicopter/[facility]MCnkf eGFR 99 >=60 mL/min/1.73 m?? [facility] Comment: The eGFR was calculated using the CKD-EP I equation. As with all creatinine based estimates of kidney function, eGFR values calculated with the CKD-EPI equation are not accurate in patients wi th acute kidney failure, extremes of body mass or the acutely ill. [email or web address]/DHMCnkf Specimen Anatomical Collection Method Collection Time Receive d Time (Source) Location / / Volume Laterality Blood specimen 12/06/2019 3:36 AM 020 3:45 (specimen) EDT AM EDT Resulting Agency Comment Spec In Lab Gretchen Yoon MD CHEMISTRY ORDERABLES Performing Organization Address City/State/[place] [address] (ABNORMAL) Hemogram (12/06/2019 3:36 AM EDT) Analysis Performed At Patho logist Time Signature WBC 9.2 4.0 - 9.5 [facility] x[facility](3[facility]ATORY RBC 3.99 (L) 4.58 - [facility] JAN 5.54 [facility] x10(6)/[facility] LABORATORY Hemoglobin 11.9 (L) 13.7 - [facility] JAN 16.5 gm/dL [facility] Hematocrit 35.5 (L) 40.5 - [facility] JAN 48.5 % [facility] MCV 89.0 82.9 - [facility] JAN 93.1 [facility] LABORATORY MCH 29.8 27.5 - MELINA JAN 32.1 pg [facility] MCHC 33.5 32.0 - [facility] JAN 35.7 gm/dL [facility] Platelets 164 145 - 357 [facility] x10(3)/[facility] LABORATORY RDWSD 47.6 (H) 36.0 - [place] JAN 45.0 [facility] LABORATORY RDWCV 14.7 (H) 11.4 - MELINA JAN 13.8 % [facility] MPV 11.9 7.6 - 12.9 [facility] nRBC % Auto 0.0 % [facility] nRBC Abs Auto 0.000 0.000 - [employer] 0.000 [facility] x10(3)/[facility] LABORATORY Specimen Anatomical Collection Method Collection Time Receive d Time (Source) Location / / Volume Laterality Blood specimen 12/06/2019 3:36 AM 020 3:45 (specimen) EDT AM EDT Resulting Agency Comment Spec In Lab Gretchen Yoon MD HEMATOLOGY ORDERABLES Performing Organization Address City/State/[place] [address] (ABNORMAL) Differential, Automated (12/05/2019 10:52 PM EDT) [facility] Method Time Signature Neutrophils % 61.9 % [facility] Neutr Abs (ANC) 6.02 1.70 - [facility] 6.10 [facility] x10(3)/[facility] LABORATORY Lymphocytes % 22.4 % [facility] Lymphocytes Abs 2.2 0.9 - 3.2 [facility] x10(3)/[facility]ORATORY Monocytes % 10.4 % [facility] Monocyte Abs 1.0 (H) 0.3 - 0.9 [facility] x10(3)/[facility]ORATORY Eosinophils % 4.1 % [facility] Eosinophils Abs 0.4 0.0 - 0.4 [facility] x10(3)/[facility]ORATORY Basophils % 0.7 % [facility] Basophils Abs 0.1 0.0 - 0.1 [facility] x10(3)/[facility] LABORATORY Immature Gran % [...] Gran Abs 0.05 (H) 0.00 - 0.04 x10(3)/[facility] LABORATORY Specimen Anatomical Collection Method Collection Time Receive d Time (Source) Location / / Volume Laterality Blood specimen 12/05/2019 10:52 0 (specimen) PM EDT 10:59 PM EDT Resulting Agency Comment Spec In Lab Mandi Barrera MD HEMATOLOGY ORDERABLES Performing Organization Address City/[facility]/[place] [address] (ABNORMAL) Hemogram (12/05/2019 10:52 PM EDT) Analysis Performed At Patho logist Time Signature WBC 9.7 (H) 4.0 - 9.5 [facility] x10(3)/[facility] LABORATORY RBC 4.07 (L) 4.58 - MELINA JAN 5.54 [facility] x10(6)/[facility] LABORATORY Hemoglobin 11.9 (L) 13.7 - [facility] 16.5 gm/dL [facility] Hematocrit 36.4 (L) 40.5 - [facility] 48.5 % [facility] MCV 89.4 82.9 - [facility] 93.1 [facility] LABORATORY MCH 29.2 27.5 - [facility] 32.1 pg [facility] MCHC 32.7 32.0 - [facility] 35.7 gm/dL [facility] Platelets 167 145 - 357 [facility] x10(3)/[facility] LABORATORY RDWSD 47.7 (H) 36.0 - [facility] JAN 45.0 [facility] LABORATORY RDWCV 14.6 (H) 11.4 - [facility] JAN 13.8 % [facility] MPV 12.1 7.6 - 12.9 [facility] LABORATORY nRBC % Auto 0.0 % [facility] nRBC Abs Auto 0.000 0.000 - [facility] 0.000 [facility] x10(3)/[facility] LABORATORY Specimen Anatomical Collection Method Collection Time Receive d Time (Source) Location / / Volume Laterality Blood specimen 12/05/2019 10:52 0 (specimen) PM EDT 10:59 PM EDT Resulting Agency Comment Spec In Lab Mandi Barrera MD HEMATOLOGY ORDERABLES Performing Organization Address City/State/[place] [address] Heparin (unfractionated) Level (12/05/2019 10:52 PM EDT) P athologist Signature Heparin UFH <0.04 IU/mL [facility] Comment: Guidelines for therapeutic unfractionate d [...] Organization Address City/State/ZIP Code Phon e Number [place] [id number] HOSPITAL LABORATORY Drive MRI Brain wwo Contrast [...] below. ? Electronically signed by: ALBA Jenkins [facility] ([phone]), at 12/05/2019 10:02 PM Narrative 12/05/2019 10:02 [...] Time Signature WBC 8.7 4.0 - 9.5 [facility] x[facility](3[facility]ORY RBC 4.17 (L) 4.58 - [place] JAN 5.54 [facility] x10(6)/[facility] LABORATORY Hemoglobin 12.4 (L) 13.7 - [place] JAN 16.5 gm/dL [facility] Hematocrit 37.0 (L) 40.5 - [facility] JAN 48.5 % [facility] MCV 88.7 82.9 - [facility] JAN 93.1 [facility] LABORATORY MCH 29.7 27.5 - [employer] 32.1 pg [facility] MCHC 33.5 32.0 - [place] JAN 35.7 gm/dL [facility] Platelets 173 145 - 357 [facility] x10(3)/[facility]ATORY RDWSD 47.3 (H) 36.0 - [facility] JAN 45.0 [facility] LABORATORY RDWCV 14.6 (H) 11.4 - [facility] JAN 13.8 % [facility] MPV 12.1 7.6 - 12.9 [facility] JAN [facility] LABORATORY nRBC % Auto 0.0 % [facility] nRBC Abs Auto 0.000 0.000 - M[place]INA JAN 0.000 [facility] x10(3)/[facility] LABORATORY Specimen Anatomical Collection Method Collection Time Receive d Time (Source) Location / / Volume Laterality Blood specimen 12/05/2019 1:00 PM 020 1:13 (specimen) EDT PM EDT Resulting Agency Comment Spec In Lab Gretchen Yoon MD HEMATOLOGY ORDERABLES Performing Organization Address City/State/[place] [address] EKG 12 Lead (12/05/2019 [...] ??86 BPM Confirmed by MD Ceja Daniel ([id number]) on 12/05/2019 3:55:22 PM Specimen Anatomical Collection [...] Department: Vascular Surgery Lab VASCUBASE Report Patient: [id number] (ANGEL LUIS SALINAS) CPT: 33669 ICD10: I26.99 Referring Physician: GRETCHEN YOON ?? [...] athologist Signature Magnesium 0.87 0.69 - 1.07 [facility] mmol/L [facility] Specimen Anatomical Collection Method Collection Time Receive d Time (Source) Location / / Volume Laterality Blood specimen 12/05/2019 4:18 AM 020 4:31 (specimen) EDT AM EDT Resulting Agency Comment Spec In Lab Gretchen Yoon MD CHEMISTRY ORDERABLES Performing Organization Address City/State/[place] [address] (ABNORMAL) BMP w/fasting Glucose (12/05/2019 4:18 AM EDT) P athologist Signature Glucose 104 (H) 65 - 99 [facility] Fasting mg/dL [facility] Comment: ?Fasting* Glucose Interpretive C riteria [...] of Diabetes Mellitus, Position Statement from the [place] [employer]. ??Diabete s Care, Volume 33, Supplement 1, Jul 2009 BUN 21 (H) 10 - 20 mg/dL [facility] Creatinine 1.02 0.80 - 1.50 mg/dL [facility] Sodium 136 135 - 145 mmol/L [facility] Potassium 3.9 3.5 - 5.0 mmol/L [facility] Comment: Please note: ??Patients with [...] LABORATORY Calcium 8.8 8.5 - 10.5 mg/dL [facility] Estimated GFR 73 >=60 mL/min/1.73 m?? [facility] Comment: The eGFR was calculated using the CKD-EP I equation. As with all creatinine based estimates of kidney function, eGFR values calculated with the CKD-EPI equation are not accurate in patients wi th acute kidney failure, extremes of body mass or the acutely ill. http://Hotelicopter/[facility]ONnkf eGFR 84 >=60 mL/min/1.73 m?? [facility] Comment: The eGFR was calculated using the CKD-EP I equation. As with all creatinine based estimates of kidney function, eGFR values calculated with the CKD-EPI equation are not accurate in patients wi th acute kidney failure, extremes of body mass or the acutely ill. [email or web address]/DHnkf Specimen Anatomical Collection Method Collection Time Receive d Time (Source) Location / / Volume Laterality Blood specimen 12/05/2019 4:18 AM 020 4:31 (specimen) EDT AM EDT Resulting Agency Comment Spec In Lab Gretchen Yoon MD CHEMISTRY ORDERABLES Performing Organization Address City/State/[place] [address] (ABNORMAL) Hemogram (12/05/2019 4:18 AM EDT) Analysis Performed At Patho logist Time Signature WBC 8.6 4.0 - 9.5 [facility] x[facility](3[facility] LABORATORY RBC 4.28 (L) 4.58 - M[place]INA JAN 5.54 [facility] x10(6)/[facility] LABORATORY Hemoglobin 12.4 (L) 13.7 - [facility] 16.5 gm/dL [facility] Hematocrit 37.3 (L) 40.5 - [facility] 48.5 % [facility] MCV 87.1 82.9 - [facility] 93.1 [facility] LABORATORY MCH 29.0 27.5 - [place] JAN 32.1 pg [facility] MCHC 33.2 32.0 - [place] JAN 35.7 gm/dL [facility] Platelets 163 145 - 357 [facility] x10(3)/[facility] LABORATORY RDWSD 46.4 (H) 36.0 - [facility] JAN 45.0 [facility] LABORATORY RDWCV 14.4 (H) 11.4 - [facility] JAN 13.8 % [facility] MPV 11.7 7.6 - 12.9 [facility] LABORATORY nRBC % Auto 0.0 % [facility] nRBC Abs Auto 0.000 0.000 - [facility] JAN 0.000 [facility] x10(3)/[facility] LABORATORY Specimen Anatomical Collection Method Collection Time Receive d Time (Source) Location / / Volume Laterality Blood specimen 12/05/2019 4:18 AM 020 4:31 (specimen) EDT AM EDT Resulting Agency Comment Spec In Lab Gretchen Yoon MD HEMATOLOGY ORDERABLES Performing Organization Address City/State/[place] [address] Cardiac for Morphology [...] For questions regarding this report, please contact [facility] number below. ? Electronically signed by: Roselyn Luciano [facility] ([phone]), at 12/04/2019 6:16 PM Narrative 12/04/2019 6:16 PM EDT EXAMINATION: CT CARDIAC FOR MORPHOLOGY & FUNCTION CLINICAL HISTORY: Pt with AFib and intra cranial hemorrhage, evaluation for possible left atrial appendage closure TECHNIQUE: After timing bolus, 0.6 [facility] contiguous sections were obtained through the [...] from neck/greatest puja meter to back wall: ESTONIAN 91, CAU 13: ??19 mm CORTES ??1, [...] from neck/greatest puja meter to back wall: ESTONIAN 91, CAU 13: 19 mm CORTES 1, [...] number below. Electronically signed by: Roselyn Luciano [facility] ([phone]), at 12/04/2019 6:16 PM Gretchen Yoon MD IMG CT ORDERABLES (ABNORMAL) Hemogram (12/04/2019 12:55 PM EDT) Analysis Performed At Patho logist Time Signature WBC 8.9 4.0 - 9.5 [facility] x10(3)/[facility] LABORATORY RBC 4.69 4.58 - [facility] 5.54 [facility] x10(6)/[facility] LABORATORY Hemoglobin 13.5 (L) 13.7 - [facility] 16.5 gm/dL [facility] Hematocrit 41.7 40.5 - [facility] % [facility] MCV 88.9 82.9 - MELINA MONAE 93.1 [facility] LABORATORY MCH 28.8 27.5 - MELINA MONAE 32.1 pg [facility] MCHC 32.4 32.0 - MELINA MONAE 35.7 gm/dL [facility] Platelets 196 145 - 357 [facility] x10(3)/[facility] LABORATORY RDWSD 46.7 (H) 36.0 - MELINA JAN 45.0 [facility] LABORATORY RDWCV 14.5 (H) 11.4 - MELINA JAN 13.8 % [facility] MPV 12.1 7.6 - 12.9 [facility] nRBC % Auto 0.0 % [facility] nRBC Abs Auto 0.000 0.000 - MELINA MONAE 0.000 [facility] x10(3)/[facility] LABORATORY Specimen Anatomical Collection Method Collection Time Receive d Time (Source) Location / / Volume Laterality Blood specimen 12/04/2019 12:55 0 1:06 (specimen) PM EDT PM EDT Resulting Agency Comment Spec In Lab Gretchen Yoon MD HEMATOLOGY ORDERABLES Performing Organization Address City/State/[place] [address] EKG 12 Lead (12/04/2019 [...] ??65 BPM Confirmed by MD Ceja Daniel ([id number]) on 12/05/2019 8:59:44 AM Specimen Anatomical Collection Method Collection Time Receive d Time (Source) Location / / Volume Laterality 12/04/2019 10:43 12/05/2019 8:59 AM EDT AM EDT Gretchen Yoon MD ECG ORDERABLES Performing Organization Address City/State/ZIP Code Phon e Number MUSE SYSTEM (ABNORMAL) Magnesium (12/04/2019 4:28 AM EDT) athologist Signature Magnesium 1.17 (H) 0.69 - 1.07 [facility] mmol/L [facility] Specimen Anatomical Collection Method Collection Time Receive d Time (Source) Location / / Volume Laterality Blood specimen 12/04/2019 4:28 AM 020 4:40 (specimen) EDT AM EDT Resulting Agency Comment Spec In Lab Gretchen Yoon MD CHEMISTRY ORDERABLES Performing Organization Address City/State/[place] [address] (ABNORMAL) BMP w/fasting Glucose (12/04/2019 4:28 AM EDT) P athologist Signature Glucose 108 (H) 65 - 99 [facility] Fasting mg/dL [facility] Comment: ?Fasting* Glucose Interpretive C riteria [...] of Diabetes Mellitus, Position Statement from the [place] [employer]. ??Diabete s Care, Volume 33, Supplement 1, Jul 2009 BUN 19 10 - 20 mg/dL [facility] Creatinine 0.89 0.80 - 1.50 mg/dL [facility] Sodium 135 135 - 145 mmol/L [facility] Potassium 4.2 3.5 - 5.0 mmol/L [facility] Comment: Please note: ??Patients with [...] LABORATORY Calcium 8.5 8.5 - 10.5 mg/dL [facility] Estimated GFR 85 >=60 mL/min/1.73 m?? [facility] Comment: The eGFR was calculated using the CKD-EP I equation. As with all creatinine based estimates of kidney function, eGFR values calculated with the CKD-EPI equation are not accurate in patients wi th acute kidney failure, extremes of body mass or the acutely ill. http://Hotelicopter/[facility]WTONnkf eGFR 98 >=60 mL/min/1.73 m?? [facility] Comment: The eGFR was calculated using the CKD-EP I equation. As with all creatinine based estimates of kidney function, eGFR values calculated with the CKD-EPI equation are not accurate in patients wi th acute kidney failure, extremes of body mass or the acutely ill. http://Hotelicopter/[facility]WTONnkf Specimen Anatomical Collection Method Collection Time Receive d Time (Source) Location / / Volume Laterality Blood specimen 12/04/2019 4:28 AM 020 4:40 (specimen) EDT AM EDT Resulting Agency Comment Spec In Lab Gretchen Yoon MD CHEMISTRY ORDERABLES Performing Organization Address City/State/[place] [address] (ABNORMAL) Hemogram (12/04/2019 4:28 AM EDT) Analysis Performed At Patho logist Time Signature WBC 7.8 4.0 - 9.5 [facility] x10(3)/[facility] LABORATORY RBC 4.10 (L) 4.58 - [facility] 5.54 [facility] x10(6)/[facility] LABORATORY Hemoglobin 12.0 (L) 13.7 - [facility] 16.5 gm/dL [facility] Hematocrit 36.5 (L) 40.5 - MELINA MONAE 48.5 % [facility] MCV 89.0 82.9 - MELINA WHITTENCOCK 93.1 [facility] LABORATORY MCH 29.3 27.5 - MELINA WHITT[place]OCK 32.1 pg [facility] MCHC 32.9 32.0 - MELINA WHITTENCOCK 35.7 gm/dL [facility] Platelets 151 145 - 357 [facility] x10(3)/[facility] LABORATORY RDWSD 46.9 (H) 36.0 - MELINA MONAE 45.0 [facility] LABORATORY RDWCV 14.4 (H) 11.4 - MELINA JAN 13.8 % [facility] MPV 12.2 7.6 - 12.9 [facility] LABORAT[facility] nRBC % Auto 0.0 % [facility] nRBC Abs Auto 0.000 0.000 - MELINA MONAE 0.000 [facility] x10(3)/[facility] LABORATORY Specimen Anatomical Collection Method Collection Time Receive d Time (Source) Location / / Volume Laterality Blood specimen 12/04/2019 4:28 AM 020 4:40 (specimen) EDT AM EDT Resulting Agency Comment Spec In Lab Gretchen Yoon MD HEMATOLOGY ORDERABLES Performing Organization Address City/State/[place] [address] Potassium (12/03/2019 7:55 PM EDT) P athologist Signature Potassium 3.9 3.5 - 5.0 [facility]/L [facility] Comment: Please note: ??Patients with WBC [...] Organization Address City/State/[place] [address] Potassium (12/03/2019 1:57 PM EDT) P athologist Signature Potassium 3.7 3.5 - 5.0 MELINA JAN mmol/L [facility] Comment: Please note: ??Patients with WBC [...] Yoon MD CHEMISTRY ORDERABLES Performing Organization Address City/[facility]/[place] [address] (ABNORMAL) Hemogram (12/03/2019 1:57 PM EDT) Analysis Performed At Patho logist Time Signature WBC 8.8 4.0 - 9.5 MELINA JAN x10(3)/[facility] LABORATORY RBC 4.27 (L) 4.58 - MELINA JAN 5.54 [facility] x10(6)/[facility] LABORATORY Hemoglobin 12.5 (L) 13.7 - MELINA JAN 16.5 gm/dL [facility] Hematocrit 37.5 (L) 40.5 - MELINA JAN 48.5 % [facility] MCV 87.8 82.9 - MELINA JAN 93.1 [facility] LABORATORY MCH 29.3 27.5 - MELINA JAN 32.1 pg [facility] MCHC 33.3 32.0 - MELINA JAN 35.7 gm/dL [facility] Platelets 158 145 - 357 MELINA JAN x10(3)/[facility] LABORATORY RDWSD 46.9 (H) 36.0 - MELINA JAN 45.0 [facility] LABORATORY RDWCV 14.5 (H) 11.4 - MELINA JAN 13.8 % [facility] MPV 12.2 7.6 - 12.9 MELINA MONAE fL [facility] nRBC % Auto 0.0 % [facility] nRBC Abs Auto 0.000 0.000 - MELINA MONAE 0.000 [facility] x10(3)/[facility] LABORATORY Specimen Anatomical Collection Method Collection Time Receive d Time (Source) Location / / Volume Laterality Blood specimen 12/03/2019 1:57 PM 020 2:21 (specimen) EDT PM EDT Resulting Agency Comment Spec In Lab Gretchen Yoon MD HEMATOLOGY ORDERABLES Performing Organization Address City/State/ZIP Code Phon e Number [address] Magnesium (12/03/2019 4:02 AM EDT) P athologist Signature Magnesium 0.79 0.69 - 1.07 [facility] mmol/L [facility] Specimen Anatomical Collection Method Collection Time Receive d Time (Source) Location / / Volume Laterality Blood specimen 12/03/2019 4:02 AM 020 4:16 (specimen) EDT AM EDT Resulting Agency Comment Spec In Lab Gretchen Yoon MD CHEMISTRY ORDERABLES Performing Organization Address City/[facility]/ZIP Code Phon e Number [address] (ABNORMAL) BMP w/fasting Glucose (12/03/2019 4:02 AM EDT) P athologist Signature Glucose 100 (H) 65 - 99 [facility] Fasting mg/dL [facility] Comment: ?Fasting* Glucose Interpretive C riteria [...] of Diabetes Mellitus, Position Statement from the [place] [employer]. ??Diabete s Care, Volume 33, Supplement 1, Jul 2009 BUN 17 10 - 20 mg/dL [facility] Creatinine 0.95 0.80 - 1.50 mg/dL [facility] Sodium 136 135 - 145 mmol/L [facility] Potassium 3.4 (L) 3.5 - 5.0 mmol/L [facility] Comment: Please note: ??Patients with [...] Calcium 8.3 (L) 8.5 - 10.5 mg/dL [facility] Estimated GFR 79 >=60 mL/min/1.73 m?? [facility] Comment: The eGFR was calculated using the CKD-EP I equation. As with all creatinine based estimates of kidney function, eGFR values calculated with the CKD-EPI equation are not accurate in patients wi th acute kidney failure, extremes of body mass or the acutely ill. http://Hotelicopter/[facility]WTONnkf eGFR 92 >=60 mL/min/1.73 m?? [facility] Comment: The eGFR was calculated using the CKD-EP I equation. As with all creatinine based estimates of kidney function, eGFR values calculated with the CKD-EPI equation are not accurate in patients wi th acute kidney failure, extremes of body mass or the acutely ill. http://Hotelicopter/[facility]WTONnkf Specimen Anatomical Collection Method Collection Time Receive d Time (Source) Location / / Volume Laterality Blood specimen 12/03/2019 4:02 AM 020 4:16 (specimen) EDT AM EDT Resulting Agency Comment Spec In Lab Gretchen Yoon MD CHEMISTRY ORDERABLES Performing Organization Address City/State/[place] [address] (ABNORMAL) Hemogram (12/03/2019 4:02 AM EDT) Analysis Performed At Patho logist Time Signature WBC 9.1 4.0 - 9.5 [facility] x[facility](3[facility] LABORATORY RBC 4.01 (L) 4.58 - MELINA JAN 5.54 [facility] x10(6)/[facility] LABORATORY Hemoglobin 11.8 (L) 13.7 - [facility] 16.5 gm/dL [facility] Hematocrit 35.6 (L) 40.5 - [facility] 48.5 % [facility] MCV 88.8 82.9 - [facility] 93.1 [facility]ORATORY MCH 29.4 27.5 - MELINA JAN 32.1 pg [facility] MCHC 33.1 32.0 - MELINA JAN 35.7 gm/dL [facility] Platelets 130 (L) 145 - 357 [facility] x10(3)/[facility] LABORATORY RDWSD 46.6 (H) 36.0 - MELINA JAN 45.0 [facility] LABORATORY RDWCV 14.4 (H) 11.4 - [facility] 13.8 % [facility] MPV 12.4 7.6 - 12.9 [facility] LABORATORY nRBC % Auto 0.0 % [facility] nRBC Abs Auto 0.000 0.000 - MELINA JAN 0.000 [facility] x10(3)/[facility] LABORATORY Specimen Anatomical Collection Method Collection Time Receive d Time (Source) Location / / Volume Laterality Blood specimen 12/03/2019 4:02 AM 020 4:16 (specimen) EDT AM EDT Resulting Agency Comment Spec In Lab Gretchen Yoon MD HEMATOLOGY ORDERABLES Performing Organization Address City/State/[place] [address] XR Chest One View [...] below. ? Electronically signed by: Ashly Marley [facility] ([phone]), at 12/02/2019 1:35 PM Narrative 12/02/2019 1:35 [...] Signature WBC 10.6 (H) 4.0 - 9.5 [facility] LABORATORY RBC 4.00 (L) 4.58 - MELINA JAN 5.54 [facility] x10(6)/[facility] LABORATORY Hemoglobin 11.9 (L) 13.7 - MELINA JAN 16.5 gm/dL [facility] Hematocrit 35.7 (L) 40.5 - [facility] JAN 48.5 % [facility] MCV 89.3 82.9 - MELINA JAN 93.1 [facility] LABORATORY MCH 29.8 27.5 - MELINA JAN 32.1 pg [facility] MCHC 33.3 32.0 - MELINA JAN 35.7 gm/dL [facility] Platelets 120 (L) 145 - 357 [facility] x[facility](3[facility] LABORATORY RDWSD 47.5 (H) 36.0 - MELINA JAN 45.0 [facility] LABORATORY RDWCV 14.6 (H) 11.4 - MELINA JAN 13.8 % [facility] MPV 12.0 7.6 - 12.9 MELINA JAN [facility] LABORATORY nRBC % Auto 0.0 % [facility] nRBC Abs Auto 0.000 0.000 - MELINA JAN 0.000 [facility] x10(3)/[facility] LABORATORY Specimen Anatomical Collection Method Collection Time Receive d Time (Source) Location / / Volume Laterality Blood specimen 12/02/2019 12:50 0 1:22 (specimen) PM EDT PM EDT Resulting Agency Comment Spec In Lab Gretchen Yoon MD HEMATOLOGY ORDERABLES Performing Organization Address City/State/ZIP Code Phon e Number [address] Blue Tube HOLD (12/02/2019 4:55 AM EDT) athologist Signature Blue Hold Sample in [facility] lab. [facility] Specimen Anatomical Collection Method Collection Time Receive d Time (Source) Location / / Volume Laterality Blood specimen Venous Draw / 12/02/2019 4:55 AM 2019 5:03 (specimen) Unknown EDT AM EDT Darrell Glasgow MD HEMATOLOGY ORDERABLES Performing Organization Address City/State/ZIP Code Phon e Number [address] Magnesium (12/02/2019 4:55 AM EDT) athologist Signature Magnesium 0.85 0.69 - 1.07 [facility] mmol/L [facility] Specimen Anatomical Collection Method Collection Time Receive d Time (Source) Location / / Volume Laterality Blood specimen 12/02/2019 4:55 AM 020 5:02 (specimen) EDT AM EDT Resulting Agency Comment Spec In Lab Gretchen Yoon MD CHEMISTRY ORDERABLES Performing Organization Address City/State/ZIP Code Phon e Number [address] (ABNORMAL) BMP w/fasting Glucose (12/02/2019 4:55 AM EDT) athologist Signature Glucose 114 (H) 65 - 99 [facility] Fasting mg/dL [facility] Comment: ?Fasting* Glucose Interpretive C riteria [...] of Diabetes Mellitus, Position Statement from the [place] [employer]. ??Diabete s Care, Volume 33, Supplement 1, Jul 2009 BUN 13 10 - 20 mg/dL [facility] Creatinine 0.93 0.80 - 1.50 mg/dL [facility] Sodium 135 135 - 145 mmol/L [facility] Potassium 3.7 3.5 - 5.0 mmol/L [facility] Comment: Please note: ??Patients with [...] Calcium 8.1 (L) 8.5 - 10.5 mg/dL [facility] Estimated GFR 81 >=60 mL/min/1.73 m?? [facility] Comment: The eGFR was calculated using the CKD-EP I equation. As with all creatinine based estimates of kidney function, eGFR values calculated with the CKD-EPI equation are not accurate in patients wi th acute kidney failure, extremes of body mass or the acutely ill. http://Hotelicopter/[facility]WTONnkf eGFR 94 >=60 mL/min/1.73 m?? [facility] Comment: The eGFR was calculated using the CKD-EP I equation. As with all creatinine based estimates of kidney function, eGFR values calculated with the CKD-EPI equation are not accurate in patients wi th acute kidney failure, extremes of body mass or the acutely ill. [email or web address] Specimen Anatomical Collection Method Collection Time Receive d Time (Source) Location / / Volume Laterality Blood specimen 12/02/2019 4:55 AM 020 5:02 (specimen) EDT AM EDT Resulting Agency Comment Spec In Lab Gretchen Yoon MD CHEMISTRY ORDERABLES Performing Organization Address City/State/ZIP Code Phon e Number [address] (ABNORMAL) Hemogram (12/02/2019 4:55 AM EDT) Analysis Performed At Patho logist Time Signature WBC 9.3 4.0 - 9.5 MELINA JAN x10(3)/[facility] LABORATORY RBC 3.71 (L) 4.58 - MELINA JAN 5.54 [facility] x10(6)/[facility] LABORATORY Hemoglobin 10.8 (L) 13.7 - [facility] 16.5 gm/dL [facility] Hematocrit 33.1 (L) 40.5 - [facility] 48.5 % [facility] MCV 89.2 82.9 - [facility] 93.1 [facility] LABORATORY MCH 29.1 27.5 - MELINA JAN 32.1 pg [facility] MCHC 32.6 32.0 - MELINA JAN 35.7 gm/dL [facility] Platelets 93 (L) 145 - 357 [facility] x[facility](3[facility] LABORATORY RDWSD 47.1 (H) 36.0 - MELINA JAN 45.0 [facility] LABORATORY RDWCV 14.6 (H) 11.4 - [facility] 13.8 % [facility] MPV 11.7 7.6 - 12.9 [facility] nRBC % Auto 0.0 % [facility] nRBC Abs Auto 0.000 0.000 - MELINA JAN 0.000 [facility] x10(3)/[facility] LABORATORY Specimen Anatomical Collection Method Collection Time Receive d Time (Source) Location / / Volume Laterality Blood specimen 12/02/2019 4:55 AM 020 5:02 (specimen) EDT AM EDT Resulting Agency Comment Spec In Lab Gretchen Yoon MD HEMATOLOGY ORDERABLES Performing Organization Address City/[facility]/ZIP Code Phon e Number [address] Transfuse 1 unit platelets, [...] For questions regarding this report, please contact [facility] number below. ? Electronically signed by: Angel Luis Barboza MD, [facility] ([phone]), at 12/01/2019 8:02 PM Narrative 12/01/2019 8:02 [...] MD BLOOD BANK ORDERABLES Performing Organization Address City/[facility] Code [facility] [place] [address] Duplex for DVT, Arm, Unilat (12/01/2019 5:08 PM EDT) Component Value Ref Test Analysis Performed At [facility] Range Method Time Signature VB Text Department: Vascular Surgery Lab VASCUBASE Report Patient: [id number] (ANGEL LUIS SALINAS) CPT: 01223 ICD10: R60.0 Referring Physician: GRETCHEN YOON ?? [...] below. ? Electronically signed by: Merari Collins [facility] ([phone]), at 12/01/2019 3:53 PM Narrative 12/01/2019 3:53 PM EDT EXAMINATION: CT HEAD WO CONTRAST (GENERIC) CLINICAL HISTORY: Headache, intracranial hemorrhage suspected Serial CT scan: please assess for propag ation of known ICH noted on prior Head CT/imaging. TECHNIQUE: CT head performed without intravenous co ntrast administration. COMPARISON: Head CT 11/30/2019. CT angiogram of the [place] 11/01. FINDINGS: Ventricles are normal in size. Basal cis terns are patent. Unchanged hyperdense 2.3 x 0.7 x 0.6 cm tubular hemorrhage projecting along the course of the left optic tract (axial se [facility] image 16), consistent with intraparenchymal hematoma. [...] Head CT 11/30/2019. CT angiogram of the [place] 11/01. FINDINGS: Ventricles are normal [...] Scan, Peripheral Blood (12/01/2019 12:51 PM EDT) [facility] Method Time Signature Plat Estimate Decreased [facility] RBC Morphology Normal [facility] Giant Less than 1 /HPF [facility] Platelets [facility] Specimen Anatomical Collection Method Collection Time Receive d Time (Source) Location / / Volume Laterality Blood specimen 12/01/2019 12:51 0 1:05 (specimen) PM EDT PM EDT Resulting Agency Comment Spec In Lab Riki Stevens MD HEMATOLOGY ORDERABLES Performing Organization Address City/State/[place] [address] (ABNORMAL) Differential, Automated (12/01/2019 12:51 PM EDT) [facility] Method Time Signature Neutrophils % 74.9 % [facility]ORY Neutr Abs (ANC) 6.34 (H) 1.70 - [facility] 6.10 [facility] x10(3)/[facility] L LABORATORY Lymphocytes % 11.4 % [facility]ORATORY Lymphocytes Abs 1.0 0.9 - 3.2 [facility] x10(3)/[facility] LABORATORY Monocytes % 12.4 % [facility]ORATORY Monocyte Abs 1.0 (H) 0.3 - 0.9 [facility] x10(3)/[facility] LABORATORY Eosinophils % 0.4 % [facility] Eosinophils Abs 0.0 0.0 - 0.4 [facility] x10(3)/[facility] LABORATORY Basophils % 0.4 % [facility]OR[facility]ORY Basophils Abs 0.0 0.0 - 0.1 [facility] x10(3)/[facility] LABORATORY Immature Gran % 0.50 % GRACE [...] Pita Gran Abs 0.04 0.00 - 0.04 x10(3)/[facility] LABORATORY Specimen Anatomical Collection Method Collection Time Receive d Time (Source) Location / / Volume Laterality Blood specimen 12/01/2019 12:51 0 1:05 (specimen) PM EDT PM EDT Resulting Agency Comment Spec In Lab Riki Stevens MD HEMATOLOGY ORDERABLES Performing Organization Address City/State/Z[place] [address] (ABNORMAL) Hemogram (12/01/2019 12:51 PM EDT) Analysis Performed At Patho logist Time Signature WBC 8.4 4.0 - 9.5 [facility] x10(3)/[facility] LABORATORY RBC 3.69 (L) 4.58 - [facility] 5.54 [facility] x10(6)/[facility] LABORATORY Hemoglobin 10.8 (L) 13.7 - [facility] 16.5 gm/dL [facility] Hematocrit 32.4 (L) 40.5 - [facility] 48.5 % [facility] MCV 87.8 82.9 - [facility] 93.1 [facility] LABORATORY MCH 29.3 27.5 - [facility] 32.1 [facility] LABORATORY MCHC 33.3 32.0 - [facility] 35.7 gm/dL [facility] Platelets 72 (L) 145 - 357 [facility] x10(3)/[facility] LABORATORY RDWSD 47.2 (H) 36.0 - [facility] 45.0 [facility] LABORATORY RDWCV 14.6 (H) 11.4 - [facility] 13.8 % [facility] MPV 12.2 7.6 - 12.9 [facility] LABORATORY nRBC % Auto 0.0 % [facility] LABORATORY nRBC Abs Auto 0.000 0.000 - [facility] 0.000 [facility] x10(3)/[facility] LABORATORY Specimen Anatomical Collection Method Collection Time Receive d Time (Source) Location / / Volume Laterality Blood specimen 12/01/2019 12:51 0 1:05 (specimen) PM EDT PM EDT Resulting Agency Comment Spec In Lab Riki Stevens MD HEMATOLOGY ORDERABLES Performing Organization Address City/[facility]/ZIP Code Phon e Number [address] (ABNORMAL) Coox2 (12/01/2019 11:42 AM EDT) Analysis Performed At Patho logist Time Signature pO2 Coox 30 mmHg [facility] LABORATORY Hgb Blood Gas 11.6 (L) 13.7 - [facility] 16.5 gm/dL [facility] O2HB Coox 60.8 % [facility] LABORATORY COHB Coox 0.6 % [facility] LAB[facility]ATORY Comment: Nonsmokers: 0.5-1.5% COHB Smokers: Variable, but usually less than 10% Toxic: 20-30% COHB Lethal: Greater than 60% COHB METHB Coox 0.6 <=1.5 % [facility] Source Coox Mixed Venous [facility] Specimen Anatomical Collection Method Collection Time Receive d Time (Source) Location / / Volume Laterality Blood specimen 12/01/2019 11:42 0 (specimen) AM EDT 11:42 AM EDT Gretchen Yoon MD CHEMISTRY ORDERABLES Performing Organization Address City/[facility]/ZIP Code Phon e Number [address] Sedimentation rate (12/01/2019 3:55 AM EDT) P athologist Signature Sed Rate 25 3 - 46 [facility] mm/hr [facility] Comment: Effective June 11, 2019 new [...] Winn MD HEMATOLOGY ORDERABLES Performing Organization Address City/[facility]/ZIP Code Phon e Number [address] (ABNORMAL) CRP, acute inflammation [...] Winn MD CHEMISTRY ORDERABLES Performing Organization Address City/[facility]/ZIP Code Phon e Number [address] ABORH Recheck Status (12/01/2019 3:55 AM EDT) [facility] Method Time Signature ABORH Recheck Order Placed [facility] LABORATORY ABORH Type Complete [facility] LABORATORY Specimen Anatomical Collection Method Collection Time Receive d Time (Source) Location / / Volume Laterality Blood specimen 12/01/2019 3:55 AM 020 4:15 (specimen) EDT AM EDT Resulting Agency Comment Spec In Lab Lewis Gee MD BLOOD BANK ORDERABLES Performing Organization Address City/[facility]/[place] [address] Antibody screen (12/01/2019 3:55 AM EDT) [facility] Method Time Signature Ab Screen Negative [facility] LABORATORY Expires at 12/04/2019 [facility] [id number] on: [facility] Specimen Anatomical Collection Method Collection Time Receive d Time (Source) Location / / Volume Laterality Blood specimen 12/01/2019 3:55 AM 020 4:15 (specimen) EDT AM EDT Resulting Agency Comment Spec In Lab Lewis Gee MD BLOOD BANK ORDERABLES Performing Organization Address City/[facility] [place] [address] ABO/Rh Typing (12/01/2019 3:55 AM EDT) athologist [facility] ABORh Type AB Pos [facility] Specimen Anatomical Collection Method Collection Time Receive d Time (Source) Location / / Volume Laterality Blood specimen 12/01/2019 3:55 AM 020 4:15 (specimen) EDT AM EDT Resulting Agency Comment Spec In Lab Lewis Gee MD BLOOD BANK ORDERABLES Performing Organization Address City/[facility] [place] [address] (ABNORMAL) Troponin (12/01/2019 3:55 AM EDT) athologist [facility] Troponin-T 4.35 (H) 0.00 - [facility] 0.00 ng/mL [facility] Comment: result rechecked-slw The 99th percentile [...] additional sample may be indicated. Reference: Third [place] Definition of Myocardial Infarction. Journal of the [place] [employer] 2012;60:1581-98 Specimen Anatomical Collection Method Collection Time Receive d Time (Source) Location / / Volume Laterality Blood specimen 12/01/2019 3:55 AM 020 4:00 (specimen) EDT AM EDT Resulting Agency Comment Spec In Lab Gretchen Yoon MD CHEMISTRY ORDERABLES Performing Organization Address City/State/ZIP Code Phon e Number [address] Magnesium (12/01/2019 3:55 AM EDT) P athologist Signature Magnesium 0.96 0.69 - 1.07 [facility] mmol/L [facility] Specimen Anatomical Collection Method Collection Time Receive d Time (Source) Location / / Volume Laterality Blood specimen 12/01/2019 3:55 AM 020 4:00 (specimen) EDT AM EDT Resulting Agency Comment Spec In Lab Gretchen Yoon MD CHEMISTRY ORDERABLES Performing Organization Address City/State/[place] [address] (ABNORMAL) BMP w/fasting Glucose (12/01/2019 3:55 AM EDT) P athologist Signature Glucose 148 (H) 65 - 99 [facility] Fasting mg/dL [facility] Comment: ?Fasting* Glucose Interpretive C riteria [...] of Diabetes Mellitus, Position Statement from the [place] [employer]. ??Diabete s Care, Volume 33, Supplement 1, Jul 2009 BUN 11 10 - 20 mg/dL [facility] Creatinine 0.96 0.80 - 1.50 mg/dL [facility] Sodium 132 (L) 135 - 145 mmol/L [facility] Potassium 4.0 3.5 - 5.0 mmol/L [facility] Comment: Please note: ??Patients with [...] Calcium 7.6 (L) 8.5 - 10.5 mg/dL [facility] Estimated GFR 78 >=60 mL/min/1.73 m?? [facility] Comment: The eGFR was calculated using the CKD-EP I equation. As with all creatinine based estimates of kidney function, eGFR values calculated with the CKD-EPI equation are not accurate in patients wi th acute kidney failure, extremes of body mass or the acutely ill. http://Hotelicopter/[facility]ONnkf eGFR 91 >=60 mL/min/1.73 m?? [facility] Comment: The eGFR was calculated using the CKD-EP I equation. As with all creatinine based estimates of kidney function, eGFR values calculated with the CKD-EPI equation are not accurate in patients wi th acute kidney failure, extremes of body mass or the acutely ill. [email or web address] Specimen Anatomical Collection Method Collection Time Receive d Time (Source) Location / / Volume Laterality Blood specimen 12/01/2019 3:55 AM 020 4:00 (specimen) EDT AM EDT Resulting Agency Comment Spec In Lab Gretchen Yoon MD CHEMISTRY ORDERABLES Performing Organization Address City/State/[place] [address] (ABNORMAL) Hemogram (12/01/2019 3:55 AM EDT) Analysis Performed At Patho logist Time Signature WBC 11.0 (H) 4.0 - 9.5 [facility] JAN x10(3)/[facility] LABORATORY RBC 3.46 (L) 4.58 - [place] JAN 5.54 [facility] x10(6)/[facility] LABORATORY Hemoglobin 10.2 (L) 13.7 - [facility] 16.5 gm/dL [facility] Hematocrit 31.2 (L) 40.5 - [facility] 48.5 % [facility] MCV 90.2 82.9 - [facility] 93.1 [facility] LABORATORY MCH 29.5 27.5 - [place] JAN 32.1 pg [facility] MCHC 32.7 32.0 - [place] JAN 35.7 gm/dL [facility] Platelets 98 (L) 145 - 357 [facility] x10(3)/[facility] LABORATORY RDWSD 47.9 (H) 36.0 - [facility] JAN 45.0 [facility] LABORATORY RDWCV 14.6 (H) 11.4 - [facility] JAN 13.8 % [facility] MPV 12.3 7.6 - 12.9 [facility] nRBC % Auto 0.0 % [facility] nRBC Abs Auto 0.000 0.000 - [facility] JAN 0.000 [facility] x10(3)/[facility] LABORATORY Specimen Anatomical Collection Method Collection Time Receive d Time (Source) Location / / Volume Laterality Blood specimen 12/01/2019 3:55 AM 020 4:00 (specimen) EDT AM EDT Resulting Agency Comment Spec In Lab Gretchen Yoon MD HEMATOLOGY ORDERABLES Performing Organization Address City/State/[place] [address] (ABNORMAL) BLOOD GAS 2 ARTERIAL (11/30/2019 10:39 PM EDT) Analysis Performed At Patho logist Time Signature pH Art 7.45 7.35 - [facility] 7.45 [facility] pCO2 Art 23 (L) 35 - 45 [facility] mmHg [facility] pO2 Art 76 (L) 85 - 104 [facility] mmHg [facility] HCO3 Art 15.3 (L) 20.0 - [facility] 26.0 [facility] mmol/L [facility] BE Art -8.7 (L) -3.0 - 3.0 [facility] mmol/L [facility] Hgb Blood Gas 11.7 (L) 13.7 - [facility] 16.5 gm/dL [facility] O2HB Art 94.2 94.0 - [facility] 97.0 % [facility] COHB Art 0.5 % [facility] FIO2 Art 100 % [facility] PF Ratio Art 76 [facility] Specimen Anatomical Collection Method Collection Time Receive d Time (Source) Location / / Volume Laterality Blood specimen 11/30/2019 10:39 0 (specimen) PM EDT 10:39 PM EDT Gretchen Yoon MD CHEMISTRY ORDERABLES Performing Organization Address City/[facility]/[place] [address] EKG 12 Lead (11/30/2019 [...] Yoon MD ECG ORDERABLES Performing Organization Address City/[facility]/ZIP Code Phon e Number MUSE SYSTEM [...] Organization Address City/State/ZIP [place] [address] [facility] [address] Drive (ABNORMAL) Urinalysis with reflex Culture (11/30/2019 8:40 PM EDT) Patholo gist Method Time Signature Glucose UA Negative Negative [facility] mg/dL [facility] Protein UA Negative Negative [facility] mg/dL [facility] Bilirubin UA Negative Negative [facility] mg/dL [facility] Comment: Clinical correlation required for positi [facility] Nitrite UA Negative Negative [facility] Leukocytes UA Trace (A) Negative [facility] LABORATORY Appearance UA Clear Clear [facility] Spec [place] UA 1.026 1.006 - 1.030 [facility] Color UA Yellow Yellow [facility] Culture Reflexed No [facility] Specimen (Source) Anatomical Collection Method Collection Time Re ceived Time Location / / Volume Laterality Urine specimen 11/30/2019 8:40 11/30/2019 obtained via PM EDT 10:51 PM EDT indwelling urinary catheter (specimen) Resulting Agency Comment Spec In Lab Gretchen Yoon MD URINE ORDERABLES Performing Organization Address City/[facility]/ZIP Code Phon e Number [place] [id number] [facility] LAB[address]ORY Drive (ABNORMAL) pro-Brain Natriuretic Peptide (11/30/2019 8:30 PM EDT) P athologist Signature ProBNP 2,802 (H) <=125 [facility] pg/mL [facility] Specimen Anatomical Collection Method Collection Time Receive d Time (Source) Location / / Volume Laterality Blood specimen Venous Draw / 11/30/2019 8:30 PM 2019 8:36 (specimen) Unknown EDT PM EDT Resulting Agency Comment Spec In Lab Rossy Winn MD CHEMISTRY ORDERABLES Performing Organization Address City/[facility]/[place] [address] (ABNORMAL) Troponin (11/30/2019 8:30 PM EDT) athologist Signature Troponin-T 5.04 (H) 0.00 - [place] MON[place] 0.00 ng/mL [facility] Comment: The 99th percentile for Troponin [...] additional sample may be indicated. Reference: Third [place] Definition of Myocardial Infarction. Journal of the [place] [employer] 2012;60:1581-98 Specimen Anatomical Collection Method Collection Time Receive d Time (Source) Location / / Volume Laterality Blood specimen Venous Draw / 11/30/2019 8:30 PM 2019 8:36 (specimen) Unknown EDT PM EDT Resulting Agency Comment Spec In Lab Rossy Winn MD CHEMISTRY ORDERABLES Performing Organization Address City/[facility]/ZIP Code Phon e Number [place] [address] Magnesium (11/30/2019 8:30 PM EDT) athologist Signature Magnesium 0.79 0.69 - 1.07 [facility] mmol/L [facility] Specimen Anatomical Collection Method Collection Time Receive d Time (Source) Location / / Volume Laterality Blood specimen 11/30/2019 8:30 PM 020 8:35 (specimen) EDT PM EDT Resulting Agency Comment Spec In Lab Gretchen Yoon MD CHEMISTRY ORDERABLES Performing Organization Address City/State/ZIP Code Phon e Number [address] (ABNORMAL) Basic Metabolic Panel (non-fasting) (11/30/2019 8:30 PM EDT) athologist Signature Glucose Lvl 132 65 - 199 [facility] mg/dL [facility] Comment: Diabetes: >=200 mg/dL plus symp toms BUN 12 10 - 20 mg/dL [facility] Creatinine 0.94 0.80 - 1.50 mg/dL [facility] Sodium 136 135 - 145 mmol/L [facility] Potassium 3.9 3.5 - 5.0 mmol/L [facility] Comment: Please note: ??Patients with [...] Calcium 7.9 (L) 8.5 - 10.5 mg/dL [facility] Estimated GFR 80 >=60 mL/min/1.73 m?? [facility] Comment: The eGFR was calculated using the CKD-EP I equation. As with all creatinine based estimates of kidney function, eGFR values calculated with the CKD-EPI equation are not accurate in patients wi th acute kidney failure, extremes of body mass or the acutely ill. [email or web address]/[facility]WTONnkf eGFR 93 >=60 mL/min/1.73 m?? [facility] Comment: The eGFR was calculated using the CKD-EP I equation. As with all creatinine based estimates of kidney function, eGFR values calculated with the CKD-EPI equation are not accurate in patients wi th acute kidney failure, extremes of body mass or the acutely ill. [email or web address] Specimen Anatomical Collection Method Collection Time Receive d Time (Source) Location / / Volume Laterality Blood specimen 11/30/2019 8:30 PM 020 8:35 (specimen) EDT PM EDT Resulting Agency Comment Spec In Lab Gretchen Yoon MD CHEMISTRY ORDERABLES Performing Organization Address [facility] Phon e Number [address] Blood culture (11/30/2019 8:30 PM EDT) Patholo gist Method Time Signature Blood Culture No growth [place] MONAE at 5 days. [facility] Specimen Anatomical Collection Method Collection Time Receive d Time (Source) Location / / Volume Laterality Blood specimen 11/30/2019 8:30 PM 020 9:40 (specimen) EDT PM EDT Comment: L HAND Resulting Agency Comment Spec In Lab Gretchen Yoon MD MICROBIOLOGY - BLOOD ORDERAB LES Performing Organization Address City/[facility] [place] [address] Blood culture (11/30/2019 8:30 PM EDT) Patholo gist Method Time Signature Blood Culture No growth [place] at 5 days. [facility] Specimen Anatomical Collection Method Collection Time Receive d Time (Source) Location / / Volume Laterality Blood specimen 11/30/2019 8:30 PM 020 9:40 (specimen) EDT PM EDT Comment: R HAND Resulting Agency Comment Spec In Lab Gretchen Yoon MD MICROBIOLOGY - BLOOD ORDERAB LES Performing Organization Address City/[facility] [place] [address] XR Chest One View [...] number below. Electronically signed by: Latoya Sims [facility] ([phone]), at 11/30/2019 8:32 PM Gretchen Yoon MD IMG DX ORDERABLES (ABNORMAL) BLOOD GAS 2 ARTERIAL (11/30/2019 8:09 PM EDT) Analysis Performed At Patho logist Time Signature pH Art 7.45 7.35 - [facility] 7.45 [facility] pCO2 Art 27 (L) 35 - 45 [facility] mmHg [facility] pO2 Art 68 (L) 85 - 104 [facility] mmHg [facility] HCO3 Art 18.2 (L) 20.0 - [facility] 26.0 [facility] mmol/L [facility] BE Art -5.9 (L) -3.0 - 3.0 [facility] mmol/L [facility] Hgb Blood Gas 12.4 (L) 13.7 - [facility] 16.5 gm/dL [facility] O2HB Art 93.1 (L) 94.0 - [facility] 97.0 % [facility] COHB Art 0.8 % [facility] Comment: Nonsmokers: 0.5-1.5% COHB Smokers: Variable, but [...] [facility] Flow Art 5.[address] [facility] Specimen Anatomical Collection Method Collection Time Receive d Time (Source) Location / / Volume Laterality Blood specimen 11/30/2019 8:09 PM 020 8:09 (specimen) EDT PM EDT Gretchen Yoon MD CHEMISTRY ORDERABLES Performing Organization Address City/State/[place] [address] Angiogram [place] (11/30/2019 4:36 PM EDT) Anatomical [...] Electronically signed by: Angel Luis Barboza MD, [facility] ([phone]), at 11/30/2019 5:04 PM Narrative 11/30/2019 5:04 PM EDT EXAMINATION: CT HEAD WO CONTRAST (GENERIC), CT ANGIOGRAM [place] CLINICAL HISTORY: Headache, intracranial hemorrhage suspected F/U on known ICH - assessing for propaga tion TECHNIQUE: CT head performed without intravenous co ntrast administration. CT angiogram [place] 65 cc Omnipaque 350 administered [...] HEAD WO CONTRAST (GENERI C), CT ANGIOGRAM [place] CLINICAL HISTORY: Headache, intracranial hemorrhage suspected F/U on known ICH - assessing for propaga tion TECHNIQUE: CT head performed without intravenous co ntrast administration. CT angiogram [place] 65 cc Omnipaque 350 administered [...] CT HEAD WO CONTRAST (GENERIC), CT ANGIOGRAM [place] CLINICAL HISTORY: Headache, intracranial hemorrhage suspected F/U on known ICH - assessing for propaga tion TECHNIQUE: CT head performed without intravenous co ntrast administration. CT angiogram [place] 65 cc Omnipaque 350 administered [...] HEAD WO CONTRAST (GENERI C), CT ANGIOGRAM [place] CLINICAL HISTORY: Headache, intracranial hemorrhage suspected F/U on known ICH - assessing for propaga tion TECHNIQUE: CT head performed without intravenous co ntrast administration. CT angiogram [place] 65 cc Omnipaque 350 administered [...] Electronically signed by: Angel Luis Barboza MD, [facility] ([phone]), at 11/30/2019 5:04 PM Gretchen Yoon MD [...] [place] ? (Age): 1945(74y) Med Rec#: ? [id number] ?Sex: ?M ? Site Loc: ? [facility] ?Ht / Wt: ??178(cm)/64(kg) Pt. Loc: ?CCU ? BSA: ?1.8 Study Date: ?? 11/30/2019 ?Pt. Type: Inpatient Tape: ? Referring: VANGIEJ Reading: Tello Mejia ([id number]) Dermatological Surgeon: Friend Lolita Diagnosis: *ST elevation (STEMI) myocardial [...] Vmax ?0.58 ? m/sec ? MV deceleration [id number] ? m sec ? MV A-wave Vmax [...] ? Mid-Inferior ?Akinetic ? Mid-Inferoseptal ?Normal ? Man[place]-Septal ? Normal ? [place]-Anterior ? Normal ? [place]-Lateral ?Normal ? [place]-Inferior ? Hypokinetic ? [place]-Tip ?Normal ? This report has been electronically sign ed by: _ Tello Mejia MD ? 11/30/2019 12: 45:27 Images [facility] Procedure Note Tello Mejia MD - 11/30/2019Formatti ng of this note might be different from the original. Procedure: Transthoracic Echocardiogram Patient: RITA ACOSTA(Age): [birth year](74y) Med Rec#: [id number] Sex: M Site Loc: [facility] Ht / Wt: 178(cm)/64(kg) Pt. Loc: CCU BSA: 1.8 Study Date: 11/30/2019 Pt. Type: Inpatie nt Tape: Referring: GILMER Reading: Tello Mejia ([id number]) Dermatological Surgeon: Eve Lolita Diagnosis: *ST elevation (STEMI) myocardial [...] MV E-wave Vmax 0.58 m/sec MV deceleration [id number] msec MV A-wave Vmax 0.74 m/sec MV [...] Hypokinetic Mid-Posterolateral Hypokinetic Mid-Inferior Akinetic Mid-Inferoseptal Normal Man[place]-Septal Normal [place]-Anterior Normal [place]-Lateral Normal [place]-Inferior Hypokinetic [place]-Tip Normal This report has been electronically sign ed by: _ Tello Mejia MD 11/30/2019 12:45:27 Images reviewed and interpretation [facility] Gretchen Yoon MD ECHO [...] For questions regarding this report, please contact [facility] number below. ? Electronically signed by: Angel Luis Barboza MD, [facility] ([phone]), at 11/30/2019 12:04 PM Narrative 11/30/2019 12:04 [...] athologist Signature Magnesium 0.88 0.69 - 1.07 [facility] mmol/L [facility] Specimen Anatomical Collection Method Collection Time Receive d Time (Source) Location / / Volume Laterality Blood specimen Venous Draw / 11/30/2019 8:30 AM 2019 8:37 (specimen) Unknown EDT AM EDT Resulting Agency Comment Spec In Lab Rossy Winn MD CHEMISTRY ORDERABLES Performing Organization Address City/State/[place] [address] (ABNORMAL) CK (11/30/2019 8:30 AM EDT) athologist Signature CK, Total 1,645 (H) 0 - 200 [facility] unit/[facility] Specimen Anatomical Collection Method Collection Time Receive d Time (Source) Location / / Volume Laterality Blood specimen 11/30/2019 8:30 AM 020 8:32 (specimen) EDT AM EDT Resulting Agency Comment Spec In Lab Gretchen Yoon MD CHEMISTRY ORDERABLES Performing Organization Address City/[facility]/[place] [address] (ABNORMAL) Troponin (11/30/2019 8:30 AM EDT) athologist Signature Troponin-T 8.04 (H) 0.00 - [place] MONAE 0.00 ng/mL [facility] Comment: result rechecked-rancho The 99th percentile [...] additional sample may be indicated. Reference: Third [place] Definition of Myocardial Infarction. Journal of the [place] [employer] 2012;60:1581-98 Specimen Anatomical Collection Method Collection Time Receive d Time (Source) Location / / Volume Laterality Blood specimen 11/30/2019 8:30 AM 020 8:32 (specimen) EDT AM EDT Resulting Agency Comment Spec In Lab Gretchen Yoon MD CHEMISTRY ORDERABLES Performing Organization Address City/State/ZIP Code [place] [address] EKG 12 Lead (11/30/2019 [...] Signature Glucose 147 (H) 65 - 99 [facility] Fasting mg/dL [facility] Comment: ?Fasting* Glucose Interpretive C riteria [...] of Diabetes Mellitus, Position Statement from the [place] [employer]. ??Diabete s Care, Volume 33, Supplement 1, Jul 2009 BUN 13 10 - 20 mg/dL [facility] Creatinine 0.90 0.80 - 1.50 mg/dL [facility] Sodium 135 135 - 145 mmol/L [facility] Potassium 3.9 3.5 - 5.0 mmol/L [facility] Comment: Please note: ??Patients with [...] Calcium 7.5 (L) 8.5 - 10.5 mg/dL [facility] Estimated GFR 84 >=60 mL/min/1.73 m?? [facility] Comment: The eGFR was calculated using the CKD-EP I equation. As with all creatinine based estimates of kidney function, eGFR values calculated with the CKD-EPI equation are not accurate in patients wi th acute kidney failure, extremes of body mass or the acutely ill. [email or web address] eGFR 98 >=60 mL/min/1.73 m?? [facility] Comment: The eGFR was calculated using the CKD-EP I equation. As with all creatinine based estimates of kidney function, eGFR values calculated with the CKD-EPI equation are not accurate in patients wi th acute kidney failure, extremes of body mass or the acutely ill. [email or web address]/[facility]nkf Specimen Anatomical Collection Method Collection Time Receive d Time (Source) Location / / Volume Laterality Blood specimen 11/30/2019 2:15 AM 020 2:29 (specimen) EDT AM EDT Resulting Agency Comment Spec In Lab Gretchen Yoon MD CHEMISTRY ORDERABLES Performing Organization Address City/State/[place] [address] (ABNORMAL) Hemogram (11/30/2019 2:15 AM EDT) Analysis Performed At Patho logist Time Signature WBC 11.2 (H) 4.0 - 9.5 [facility] x10(3)/[facility] LABORATORY RBC 3.83 (L) 4.58 - [facility] 5.54 [facility] x10(6)/[facility] LABORATORY Hemoglobin 11.4 (L) 13.7 - [facility] 16.5 gm/dL [facility] LABORATORY Hematocrit 35.2 (L) 40.5 - MELINA MARSHJAN 48.5 % [facility] LABORATORY MCV 91.9 82.9 - [facility]1 [facility] LABORATORY MCH 29.8 27.5 - MELINA MARSHJAN 32.1 pg [facility] LABORATORY MCHC 32.4 32.0 - MELINA MARSHJAN 35.7 gm/dL [facility] LABORATORY Platelets 122 (L) 145 - 357 [facility] x10(3)/[facility] LABORATORY RDWSD 49.8 (H) 36.0 - MELINA MARSHJAN 45.0 [facility] LABORATORY RDWCV 14.8 (H) 11.4 - [facility] 13.8 % [facility] LABORATORY MPV 12.1 7.6 - 12.9 [facility] LABORATORY nRBC % Auto 0.0 % [facility] LABORATORY nRBC Abs Auto 0.000 0.000 - [facility] x10(3)/[facility] LABORATORY Specimen Anatomical Collection Method Collection Time Receive d Time (Source) Location / / Volume Laterality Blood specimen 11/30/2019 2:15 AM 020 2:29 (specimen) EDT AM EDT Resulting Agency Comment Spec In Lab Gretchen Yoon MD HEMATOLOGY ORDERABLES Performing Organization Address City/[facility]/ZIP Code Phon e Number [address] (ABNORMAL) CK (11/30/2019 2:15 AM EDT) athologist [facility] CK, Total 1,969 (H) 0 - 200 [facility] unit/L [facility] LABORATORY Specimen Anatomical Collection Method Collection Time Receive d Time (Source) Location / / Volume Laterality Blood specimen 11/30/2019 2:15 AM 020 2:29 (specimen) EDT AM EDT Resulting Agency Comment Spec In Lab Gretchen Yoon MD CHEMISTRY ORDERABLES Performing Organization Address City/[facility]/ZIP [facility] Phon e Number [address] (ABNORMAL) Troponin (11/30/2019 2:15 AM EDT) athologist Signature Troponin-T 11.73 (H) 0.00 - MELINA MONAE 0.00 ng/mL [facility] LABORATORY Comment: result rechecked-slw The 99th percentile [...] additional sample may be indicated. Reference: Third [place] Definition of Myocardial Infarction. Journal of the [place] [employer] 2012;60:1581-98 result rechecked- The [...] additional sample may be indicated. Reference: Third [place] Definition of Myocardial Infarction. Journal of the [place] [employer] 2012;60:1581-98 Corrected from 11.73 ng/ml [HI] on 11/29 3:11:51 EDT by Debi Hawley Specimen Anatomical Collection Method Collection Time Receive d Time (Source) Location / / Volume Laterality Blood specimen 11/30/2019 2:15 AM 020 2:29 (specimen) EDT AM EDT Resulting Agency Comment Spec In Lab Gretchen Yoon MD CHEMISTRY ORDERABLES Performing Organization Address City/[facility]/ZIP Code Phon e Number [address] LDL Cholesterol, Direct (11/30/2019 2:15 AM EDT) P athologist Signature LDL Chol 156 mg/dL [facility] LABORATORY Comment: Lowest Risk: <100 mg/dL Lower Risk: 100-129 mg/dL Borderline High Risk: 130-159 mg/dL High Risk: 160-189 mg/dL Very High Risk: >ae=431 mg/dL Specimen Anatomical Collection Method Collection Time Receive d Time (Source) Location / / Volume Laterality Blood specimen 11/30/2019 2:15 AM 020 2:29 (specimen) EDT AM EDT Resulting Agency Comment Spec In Lab Gretchen Yoon MD CHEMISTRY ORDERABLES Performing Organization Address City/[facility]/ZIP [facility] [place] [address] (ABNORMAL) Hemoglobin A1c (11/30/2019 2:15 AM EDT) Analysis Performed At Patho logist Time Signature Hemoglobin A1C 6.3 (H) 4.3 - 5.6 [facility] LABORATORY Comment: Reference Range: 4.3 [...] S67-74 Est Avg Gluc See note mg/dL [facility] [...] with hemoglobinopathies. Additional resources are available on [facility] ADA website. Kiko CARBAJAL, Jenn J, Silas R, et al. ??Tr anslating the A1C assay into estimated average glucose values. ??Diabetes Care 2008:31(8):5066-2908. Specimen Anatomical Collection Method Collection Time Receive d Time (Source) Location / / Volume Laterality Blood specimen 11/30/2019 2:15 AM 020 2:29 (specimen) EDT AM EDT Resulting Agency Comment Spec In Lab Gretchen Yoon MD CHEMISTRY ORDERABLES Performing Organization Address City/State/Z[place] [address] Lipid Panel (Reflex Direct LDL) (11/30/2019 2:15 AM EDT) athologist Signature Chol, Total 195 mg/dL [facility] LABORATORY Comment: Lower Risk: <200 mg/dL Average Risk: 200-239 mg/dL Higher Risk: >df=917 mg/dL Triglycerides 93 mg/dL [facility] LABORATORY Comment: Average Risk/Lower Risk: <150 mg/dL Borderline High Risk: 150-199 mg/dL High Risk: 200-499 mg/dL Very High Risk: >up=045 mg/dL HDL 32 mg/dL [facility] LABORATORY Comment: Males: ?? Higher Risk: <40 mg/dL Females: ?? HIgher Risk: <50 mg/dL LDL Cholesterol 144 mg/dL [facility] LABORATORY Comment: Lowest Risk: <100 mg/dL Lower Risk: 100-129 mg/dL Borderline High Risk: 130-159 mg/dL High Risk: 160-189 mg/dL Very High Risk: >ck=160 mg/dL Chol/HDL Ratio 6.1 ratio [facility] LABORATORY Lipid Interpretation See Note [facility] LABORATORY Comment: Lipid management should be guided by a p atient? s ASCVD risk, goals and preferences. ACC/AHA Guidelines recommend high intens ity statin if clinical ASCVD or LDL greater than or equal to 190 mg/dL. http://GZ.com.com/YGY-ITY-Dlbsupeqk Adults aged 40-75 with LDL 70-189 mg/dL should have their 10 year ASCVD risk estimated with the ACC/AHA ASCVD risk es timator http://tools.acc.org/JAQWA-Ckzu-Txxgfpea r/ Statin should be discussed if risk [...] Address City/State/ZIP Code Phon e Number [address] (ABNORMAL) CK (11/29/2019 6:35 PM EDT) athologist Signature CK, Total 2,780 (H) 0 - 200 [facility] unit/L [facility] LABORATORY Specimen Anatomical Collection Method Collection Time Receive d Time (Source) Location / / Volume Laterality Blood specimen 11/29/2019 6:35 PM 020 6:53 (specimen) EDT PM EDT Resulting Agency Comment Spec In Lab Gretchen Yoon MD CHEMISTRY ORDERABLES Performing Organization Address City/[facility]/[place] [address] (ABNORMAL) Troponin (11/29/2019 6:35 PM EDT) athologist [facility] Troponin-T 17.60 (H) 0.00 - [facility] 0.00 ng/mL [facility] LABORATORY Comment: result rechecked-az The 99th percentile [...] additional sample may be indicated. Reference: Third [place] Definition of Myocardial Infarction. Journal of the [place] [employer] 2012;60:1581-98 Specimen Anatomical Collection Method Collection Time Receive d Time (Source) Location / / Volume Laterality Blood specimen 11/29/2019 6:35 PM 020 6:53 (specimen) EDT PM EDT Resulting Agency Comment Spec In Lab Gretchen Yoon MD CHEMISTRY ORDERABLES Performing Organization Address City/[facility]/ZIP Code Phon e Number [place] [id number] EKG 12 Lead (11/29/2019 3:58 PM EDT) [facility] gist Method Time Signature Ventricular rate [...] below. ? Electronically signed by: Devin Solis [facility] ([phone]), at 11/29/2019 5:06 PM --------ORIGINAL REPORT -------- EXAMINATION: XR CHEST ONE VIEW CLINICAL HISTORY: stemi (as entered by [facility] provider in the order requisition) TECHNIQUE: Portable [...] lung apex is excluded from the imaged [id number]. IMPRESSION: 1. ??New right internal jugular pulmonar [...] below. ? Electronically signed by: Devin Solis [facility] ([phone]), at 11/29/2019 4:36 PM Impressions 11/29/2019 4:36 [...] below. ? Electronically signed by: Devin Solis [facility] ([phone]), at 11/29/2019 4:36 PM Narrative 11/29/2019 4:36 [...] lung apex is excluded from the imaged [id number]. Procedure Note Estefani Harris MD - 11/29/2019Formattin [...] lung apex is excluded from the imaged [id number]. IMPRESSION 1. New right internal jugular pulmonary [...] number below. Electronically signed by: Devin Solis [facility] ([phone]), at 11/29/2019 4:36 PM Juventino Concepcion MD IMG DX ORDERABLES (ABNORMAL) Differential, Automated (11/29/2019 2:32 PM EDT) [facility] Method Time Signature Neutrophils % 83.8 % [facility] LABORATORY Neutr Abs (ANC) 12.12 (H) 1.70 - [facility] 6.10 [facility] x10(3)/[facility] LABORATORY Lymphocytes % 9.1 % [facility] LABORATORY Lymphocytes Abs 1.3 0.9 - 3.2 [facility] x10(3)/[facility] LABORATORY Monocytes % 6.2 % [facility] LABORATORY Monocyte Abs 0.9 0.3 - 0.9 [facility] x10(3)/[facility] LABORATORY Eosinophils % 0.0 % [facility] LABORATORY Eosinophils Abs 0.0 0.0 - 0.4 [facility] x10(3)/[facility] LABORATORY Basophils % 0.3 % [facility] LABORATORY Basophils Abs 0.0 0.0 - 0.1 [facility] x10(3)/[facility] LABORATORY Immature Gran % 0.60 % GRACE [...] Gran Abs 0.08 (H) 0.00 - 0.04 x10(3)/[facility] LABORATORY Specimen Anatomical Collection Method Collection Time Receive d Time (Source) Location / / Volume Laterality Blood specimen 11/29/2019 2:32 PM 020 2:55 (specimen) EDT PM EDT Resulting Agency Comment Spec In Lab Darrell Glasgow MD HEMATOLOGY ORDERABLES Performing Organization Address City/State/ZIP Code Phon e Number [place] [id number]ORY Drive (ABNORMAL) Hemogram (11/29/2019 2:32 PM EDT) Analysis Performed At Patho logist Time Signature WBC 14.5 (H) 4.0 - 9.5 [facility] x10(3)/[facility] LABORATORY RBC 4.53 (L) 4.58 - [facility] JAN 5.54 [facility] x10(6)/[facility] LABORATORY Hemoglobin 13.1 (L) 13.7 - [facility] 16.5 gm/dL [facility] LABORATORY Hematocrit 40.8 40.5 - [facility] 48.5 % [facility] LABORATORY MCV 90.1 82.9 - [facility] 93.1 [facility] LABORATORY MCH 28.9 27.5 - [facility] JAN 32.1 pg [facility] LABORATORY MCHC 32.1 32.0 - [facility] 35.7 gm/dL [facility] LABORATORY Platelets 184 145 - 357 [facility] x10(3)/[facility] LABORATORY RDWSD 47.8 (H) 36.0 - [facility] JAN 45.0 [facility] LABORATORY RDWCV 14.5 (H) 11.4 - [facility] JAN 13.8 % [facility] LABORATORY MPV 11.9 7.6 - 12.9 [facility] LABORATORY nRBC % Auto 0.0 % [facility] LABORATORY nRBC Abs Auto 0.000 0.000 - MELINA WHITTENCOCK 0.000 [facility] x10(3)/[facility] LABORATORY Specimen Anatomical Collection Method Collection Time Receive d Time (Source) Location / / Volume Laterality Blood specimen 11/29/2019 2:32 PM 020 2:55 (specimen) EDT PM EDT Resulting Agency Comment Spec In Lab Darrell Glasgow MD HEMATOLOGY ORDERABLES Performing Organization Address City/State/ZIP Code Phon e Number [address] (ABNORMAL) CK (11/29/2019 2:32 PM EDT) athologist Signature CK, Total 3,282 (H) 0 - 200 [facility] unit/L [facility] LABORATORY Specimen Anatomical Collection Method Collection Time Receive d Time (Source) Location / / Volume Laterality Blood specimen 11/29/2019 2:32 PM 020 2:32 (specimen) EDT PM EDT Resulting Agency Comment Spec In Lab Gretchen Yoon MD CHEMISTRY ORDERABLES Performing Organization Address City/[facility]/ZIP Code Phon e Number [address] (ABNORMAL) Troponin (11/29/2019 2:32 PM EDT) athologist Signature Troponin-T 20.33 (H) 0.00 - MELINA MONAE 0.00 ng/mL [facility] LABORATORY Comment: The 99th percentile for Troponin [...] additional sample may be indicated. Reference: Third [place] Definition of Myocardial Infarction. Journal of the [place] [employer] 2012;60:1581-98 Specimen Anatomical Collection Method Collection Time Receive d Time (Source) Location / / Volume Laterality Blood specimen 11/29/2019 2:32 PM 020 2:32 (specimen) EDT PM EDT Resulting Agency Comment Spec In Lab Gretchen Yoon MD CHEMISTRY ORDERABLES Performing Organization Address [facility] [place] [address] (ABNORMAL) APTT (11/29/2019 2:32 PM EDT) P athologist Signature PTT 114 25 - 37 [facility] (Critical) [facility] [...] Yoon MD HEMATOLOGY ORDERABLES Performing Organization Address City/[facility]/[place] [address] (ABNORMAL) Prothrombin Time (11/29/2019 2:32 PM EDT) P athologist Signature PT 13.5 (H) 9.4 - 12.5 [facility] LABORATORY INR 1.2 [facility] LABORATORY [...] Organization Address City/State/[place] [address] (ABNORMAL) Hepatic Function Panel (11/29/2019 2:32 PM EDT) P athologist Signature Total Protein 6.3 6.1 - 8.0 [facility] JAN gm/dL [facility] LABORATORY Albumin 3.6 3.2 - 5.2 [facility] JAN gm/dL [facility] LABORATORY AST 257 (H) 0 - 39 [facility] JNA unit/L [facility] LABORATORY ALT 50 0 - 55 [facility] JAN unit/L [facility] LABORATORY Alk Phos 84 40 - 130 [facility] JAN unit/L [facility] LABORATORY Total 0.3 0.2 - 1.3 MELINA JAN Bilirubin mg/dL [facility] LABORATORY Bili, Direct 0.1 0.0 - 0.3 [facility] JAN mg/dL [facility] LABORATORY Specimen Anatomical Collection Method Collection Time Receive d Time (Source) Location / / Volume Laterality Blood specimen 11/29/2019 2:32 PM 020 2:32 (specimen) EDT PM EDT Resulting Agency Comment Spec In Lab Gretchen Yoon MD CHEMISTRY ORDERABLES Performing Organization Address City/[facility]/[place] [address] (ABNORMAL) pro-Brain Natriuretic Peptide (11/29/2019 2:32 PM EDT) P athologist Signature ProBNP 272 (H) <=125 pg/mL [facility] LABORATORY Specimen Anatomical Collection Method Collection Time Receive d Time (Source) Location / / Volume Laterality Blood specimen 11/29/2019 2:32 PM 020 2:32 (specimen) EDT PM EDT Resulting Agency Comment Spec In Lab Gretchen Yoon MD CHEMISTRY ORDERABLES Performing Organization Address City/[facility]/ZIP Code Phon e Number [address] Magnesium (11/29/2019 2:32 PM EDT) athologist Signature Magnesium 0.76 0.69 - 1.07 [facility] mmol/L [facility] LABORATORY Specimen Anatomical Collection Method Collection Time Receive d Time (Source) Location / / Volume Laterality Blood specimen 11/29/2019 2:32 PM 020 2:32 (specimen) EDT PM EDT Resulting Agency Comment Spec In Lab Gretchen Yoon MD CHEMISTRY ORDERABLES Performing Organization Address City/[facility] [place] [address] (ABNORMAL) Basic Metabolic Panel (non-fasting) (11/29/2019 2:32 PM EDT) athologist Signature Glucose Lvl 149 65 - 199 [facility] mg/dL [facility] LABORATORY Comment: Diabetes: >=200 mg/dL plus symp toms BUN 16 10 - 20 mg/dL [facility] LABORATORY Creatinine 0.94 0.80 - 1.50 mg/dL [facility] LABORATORY Sodium 135 135 - 145 mmol/L [facility] LABORATORY Potassium 4.5 3.5 - 5.0 mmol/L [facility] LABORATORY Comment: Please note: ??Patients with [...] Calcium 8.0 (L) 8.5 - 10.5 mg/dL [facility] LABORATORY Estimated GFR 80 >=60 mL/min/1.73 m?? [facility] LABORATORY Comment: The eGFR was calculated using the CKD-EP I equation. As with all creatinine based estimates of kidney function, eGFR values calculated with the CKD-EPI equation are not accurate in patients wi th acute kidney failure, extremes of body mass or the acutely ill. http://Hotelicopter/[facility]WTONnkf eGFR 93 >=60 mL/min/1.73 m?? [facility] LABORATORY Comment: The eGFR was calculated using the CKD-EP I equation. As with all creatinine based estimates of kidney function, eGFR values calculated with the CKD-EPI equation are not accurate in patients wi th acute kidney failure, extremes of body mass or the acutely ill. http://Hotelicopter/[facility]WTONnkf Specimen Anatomical Collection Method Collection Time Receive d Time (Source) Location / / Volume Laterality Blood specimen 11/29/2019 2:32 PM 020 2:32 (specimen) EDT PM EDT Resulting Agency Comment Spec In Lab Gretchen Yoon MD CHEMISTRY ORDERABLES Performing Organization Address City/State/[place] [address] EKG 12 Lead (11/29/2019 11:38 AM EDT) [facility] gist Method Time Signature Ventricular rate [...] Laterality Volume Narrative 11/30/2019 1:09 PM EDT ?[facility] ? Cardiac Cathete rization/Intervention Report ? Patient Name: Angel Luis Salinas H. ? Procedure Date: 11/29/2019 ? A #: [id number] ? Primary Physician: Gretchen Yoon ? Case #: [id number] ? File Name: [id number] ? Catheterization Order Number: [id number] ? [facility] ? Final Report [place], [place] ? Patient Name: ? Angel Luis Salinas ? ID#: ?[id number] ? : ?1945 ? Procedure Date: ? [...] procedure was Emergent. The indication for ?the wharf labourer visit is ACS less than or equal [...] dose administered prior to arrival in the wharf labourer. ?Recommended anti-platelet/anti- thrombotic regimen: ?Continue aspirin 81 mg daily fo r indefinitely. ?Continue clopidogrel 75 mg marco a y for 12 months then stop. ?These recommendations are made at the time of the intervention. Patient ?and provider preferences or a c hanging clinical situation may require ?modification of this regimen. [facility] Interventional Cardiology for ?questions. ? Conclusions: ?* [...] note might be different from the original. [facility] Cardiac Catheterization/Intervention Re port Patient Name: Angel Luis Salinas Procedure Date: 11/29/2019 A #: [id number] Primary Physician: Gretchen Yoon Case #: [id number] File Name: [id number] Catheterization Order Number: [id number] [facility] Final Report [place], [place] Patient Name: Angel Luis Salinas ID#: [id number] : 1945 Procedure Date: November 29, [...] was designated as ASA Class IV. The [facility] clinical frailty scale is 4: Vulnerable. Diagnostic Tests: Electrocardiography: EKG was assessed by ECG. EKG was Abnorm al. EKG showed ST Deviation >= 0.5 mm. Medications Prior to Procedure: Aspirin. Indications for Diagnostic Cath: The priority of the diagnostic procedur e was Emergent. The indication for the wharf labourer visit is ACS less than or equal [...] administered prior t o arrival in the wharf labourer. Recommended anti-platelet/anti-thrombot ic regimen: Continue aspirin 81 mg daily for indefi nitely. Continue clopidogrel 75 mg daily for 12 months then stop. These recommendations are made at the t loyda of the intervention. Patient and provider preferences or a changing clinical situation may require modification of this regimen. Consult [facility] Interventional Cardiology for questions. Conclusions: [...] Signature POC pH 7.33 (L) 7.35 - [facility] 7.45 [facility] LABORATORY POC PCO2 33 (L) 35 - 45 [facility] LABORATORY POC PO2 56 (L) 85 - 104 [facility] LABORATORY POC Base Excess -8.0 (L) -3.0 - 3.0 [facility] K mmol/L [facility] LABORATORY POC HCO3 17.4 (L) 20.0 - [facility] 26.0 [facility] POC Sodium 137 135 - 145 [facility] mmol/L [facility] LABORATORY POC Potassium 3.6 3.5 - 5.0 [facility] mmol/L [facility] LABORAT[facility] POC Ionized Ca 1.15 1.15 - [facility] 1.33 [facility] POC Hematocrit 37.0 (L) 40.0 - [facility] 51.0 % [facility] POC Calc Hgb 12.6 (L) 13.7 - [facility] 17.5 gm/dL [facility]ATORY Comment: The calculation of hemoglobin f rom hematocrit assumes a normal MCHC. POC Bgas Loc CC LAB [facility] LABORATORY Specimen Anatomical Collection Method Collection Time Receive d Time (Source) Location / / Volume Laterality Blood specimen 11/29/2019 9:17 AM 020 7:35 (specimen) EDT AM EDT Gretchen Yoon MD CHEMISTRY ORDERABLES Performing Organization Address City/State/[place] [address] EKG 12 Lead (11/29/2019 [...] Intravenous, ONCE PRN, 1 dose, Starting on Lsiandra 12/04/19 at 1356, Until Lisandra 12/04/19 at 1356, Per Protocol, Warning Vesicant/Irritant Medication , Radiology Contrast, Routine lactated ringers infusion New Bag 12/07/2019 1:34 AM EDT 250 mL/hr 250 mL/hr 250 mL/hr, Intravenous, CONTINUOUS, Starting on [place] 12/07/19 at 0145, Until [place] 12/07/19 at 0239 levoFLOXacin (LEVAQUIN) 750 mg in New Bag 11/30/2019 11:03 PM EDT 750 mg 100 mL/hr dextrose 5% 150 mL 750 mg, Intravenous, at 100 mL/hr, EVERY 24 HOURS, First dose on [place] 11/30/19 at 2300, Until Discontinued, Routine, Indication [...] ONCE, 1 dose, 12/06/19 at 0515, Ad enrollment management vice president over 120 Minutes magnesium sulfate 2 g [...] Oral, EVERY 4 HOURS PRN, Startin g [place] 11/30/19 at 2017, Until Sun12/08/19 at 1811, [...]
Routine documented in this encounter Care Teams [employer] Relationship Specialty Start Date End Date France Lam MD PCP - General 05/02/13 02/04/20 [address] [place] [address] documented as of this encounter
--- OUTSIDE RECORDS SUMMARY | 2022-05-18 11:09 | XMS_ITS | Encounter Summary ---
:1945 Author Organization [facility] [place] [address] Care Team Providers Name Role Phone France Lam MD Primary Care Provider Encounter Details Date Type Department Care Team Description 11/30/2019 Orders Only Cardiology [facility] [place] [address] Social History Tobacco Use Types Packs/Day Years Used Date Smoking Tobacco: Every Day Cigarettes 0.5 Cigars Sex Assigned at Date Recorded Not on file documented as of this encounter Plan of Treatment Upcoming Encounters Date Type Specialty Care Team Description 06/30/2022 Office Visit Endocrinology Alan Terrell MD [facility] ENDOCRINOLOGY [place], [place] [address] (Wo rk) documented as of [...] fajardo ? (Age): 1945(74y) Med Rec#: ? [id number] ?Sex: ?M ? Site Loc: ? Ht / Wt: ??(cm)/ (kg) ? Pt. Loc: ? Study Date: ?? 11/29/2019 ?Pt. Type: Tape: ? Referring: Faustino Garduno Reading: Dawit Mejia ([id number]) Electrical Research Engineer: [employer] Glass Mechanic: Cedric Eric ([id number]) Interpreting Fellow: Cedric Eric ([id number]) Diagnosis: SUMMARY: 1. Limited bedside echocardiogram perfor med by behavioral modification assistant garnett room worker for hypotension following inferior STEMI . 2. [...] ? Mid-Inferior ?Akinetic ? Mid-Inferoseptal ?Hypokinetic ? Scott-Septal ? Normal ? Scott-Anterior ? Normal ? Scott-Lateral ?Normal ? Scott-Inferior ? Hypokinetic ? Scott-Tip ?Normal ? This report has been electronically sign ed by: _ Dawit Mejia MD ? 11/30/2019 12: 53:59 Images reviewed and interpretation verif ied [facility] Cardiac Ultrasound Laboratory Procedure Note Dawit Mejia MD - 11/30/2019Formatti ng of this note might be different from the original. Procedure: Transthoracic Echocardiogram Patient: domenica ACOSTA(Age): 6(74y) Med Rec#: [id number] Sex: M Site Loc: Ht / Wt: (cm)/ (kg) Pt. Loc: Study Date: 11/29/2019 Pt. Type: Tape: Referring: Faustino Garduno Reading: Dawit Mejia ([id number]) Electrical Research Engineer: [employer] Glass Mechanic: Cedric Eric ([id number]) Interpreting Fellow: Cedric Eric ([id number]) Diagnosis: SUMMARY: 1. Limited bedside echocardiogram perfor med by behavioral modification assistant garnett room worker for hypotension following inferior STEMI . 2. [...] Normal Mid-Posterolateral Akinetic Mid-Inferior Akinetic Mid-Inferoseptal Hypokinetic Scott-Septal Normal Scott-Anterior Normal Scott-Lateral Normal Scott-Inferior Hypokinetic Scott-Tip Normal This report has been electronically sign ed by: _ Dawit Mejia MD 11/30/2019 12:53:59 Images reviewed and interpretation [facility] Cardiac Ultrasound Laboratory Unknown ECHO ORDERABLES documented in this encounter Visit Diagnoses Not on filedocumented in this encounter Care Teams Painter Barrel Relationship Specialty Start Date End Date France Lam MD PCP - General 05/02/13 02/04/20 [address] [place] [address] documented as of this encounter
[2022-05-18 11:10] VITALS: BP 123/64; PULSE 47
--- OUTSIDE RECORDS SUMMARY | 2022-05-18 11:10 | XMS_ITS | Encounter Summary ---
:1945 Author Organization [facility] Address [facility] [place] [address] Care Team Providers Name Role Phone France Lam MD Primary Care Provider Reason for Visit Reason Comments Claudication Encounter Details Date Type Department Care Team Description 05/13/2013 Office Visit Vascular Surgery at [facility] from [facility] [place] Bobby peripheral vascular [facility] dis ease, left ([address] [place]) [place], [place] VASCULAR SURGERY [id number] [place] [address] [phone] Social History Tobacco Use Types Packs/Day Years [...] 06/30/2022 Office Visit Endocrinology Alan Terrell MD [facility] [address], [place] [address] (Wo rk) documented as of this encounter Visit Diagnoses Diagnosis Claudication from peripheral vascular di sease, left - Primary Peripheral vascular disease, unspecified documented in this encounter Care Teams Stretch Box Tender Relationship Specialty Start Date End Date France Lam MD PCP - General 05/02/13 02/04/20 [address] [place] [address] documented as of this encounter
--- OUTSIDE RECORDS SUMMARY | 2022-05-18 11:10 | XMS_ITS | Encounter Summary ---
:1945 [place] [address] Care Team Providers Name Role Phone France Lam MD Primary Care Provider Reason for Visit Auth/Cert Specialty Diagnoses / Procedures Referred By Contact Refer red To Contact Diagnoses STEMI (ST elevation myocardial infarction) STEMI Procedures CARDIAC CATHETERIZATION Referral ID Status Reason Start Date Expiration Date Visits Requ ested Visits Authorized [id number] 1 1 Encounter Details Date Type Department Care Team Description 11/29/2019 Surgery Water Mechanic Gretchen Corral, CARDIAC CATHETERIZATION [facility] [place] [address] [place] [id number] [phone] (Wo rk) Social History Tobacco Use Types [...] Luis Salinas Patient Age: 74 y.o. Language: Scottish Race: White Ethnicity: Not nor Admit date: [...] months on: antiplatelet therapy at discretion of hr administrator - Repeat TTE in 3 months to reassess LV function - Repeat BMP in 1-2 weeks given recent start lisinopril - Referred to lipid clinic for consideration of PCSK-9 inhibitor given STEMI with intolerance of statins - Started on amiodarone this admission for recurrent rapid atrial flutter with rates ~170, recommendcontinued assessment of necessity of rhythm control strategy with hr administrator - Amiodarone monitoring recommendations as below - [...] please contact your inpatient physician through the [facility] Sweet Goods Machine Operator . Issues after hours and [...] and Compazine. He was transferred directly to [facility] via [facility] for further management. Patient had an emergent PCI with 3 MACARIO stents placed to his RCA, with mild disease of LCX (report pending) at [facility]. He was found to be persistently hypotensive [...] drip as described above. On arrival at [facility] he was taken for cardiac cath where [...] priority for the procedure was Emergent. [facility] the [facility] [...] Estefani Harris [facility] ([phone]), at 11/29/2019 4:[address] Head wo [...] Barboza MD, [facility] ([phone]), at 11/30/2019 12:[address] Head wo [...] signed by: Angel [facility] ([phone]), at 11/30/2019 5:[address] Angiogram [place] [facility] [place] (Exam End: 11/30/2019 4:36 PM) [...] Barboza MD, [facility] ([phone]), at 11/30/2019 5:04 PM MRI Brain wo [...] Barboza MD, [facility] ([phone]), at 12/01/2019 8:02 PM XR Chest One [...] Merari Collins [facility] ([phone]), at 12/01/2019 3:53 PM XR Chest One [...] Roselyn Luciano [facility] ([phone]), at 12/04/2019 6:16 PM MRI Brain wwo Contrast (Generic) (Exam End: 12/05/2019 7:59 PM) Impression No significant interval change. Thank you for letting us participate in the care of this patient. For questions regarding this report, please contact the number below. Electronically signed by: Merari Collins [facility] ([phone]), at 12/05/2019 10:[address] Head wo [...] Merari Collins [facility] ([phone]), at 12/06/2019 10:06 PM Pending Studies and Lab Data: N/A Discharge Conditions/Prognosis: stable Discharge to: home Updated Allergies/ADRs: Allergies Allergen Reactions ??? Penicillins Pt doesn't remember reaction ??? Xtpqhiw-Uli-Ueq Reductase Inhibitors Stiff neck, upset stomach, back [...] medications at another hospital and then at [facility] you had a stent placed in a [...] FOR ONE MONTH AND THEN STOP. Your hr administrator may tell you to start this medication again after one year. Clopidogrel (Plavix) 75 mg daily - This medication will help prevent clots from forming in your blood, which will help protect the stent that was placed in your heart vessel. TAKE THIS FOR ONE YEAR ANDTHEN DISCUSS WITH YOUR BUDGET TECHNICIAN WHETHER TO STOP. Amiodarone 400mg twice [...] follow up: Your primary care provider and hr administrator will manage your blood thinner (apixaban). You do not need lab monitoring of this medication. Diet: Please consume a healthy diet low in cholesterol Follow up Appointments: 12/10/2019 at 3:10PM with PCP Angel Luis Lott Future Appointments Date Time Provider Department Center 12/23/2019 1:30 PM Alfreda Salas APRN [facility] [id number] 12/26/2019 9:40 AM Merlin Sanchez MD [facility] CARD 4A [facility] 12/30/2019 3:40 PM Gretchen Yoon MD [address] Future Appointments and Orders Future Appointments and Orders Future Appointments Provider Department Dept Phone 12/23/2019 1:30 PM Alfreda Salas APRN Neurosurgery at [facility] Arrive at: Home [phone] Please do not come in for this visit. Your provider will call you at the number you provided. 12/26/2019 9:40 AM Merlin Sanchez MD Cardiology at [facility] Arrive at: Home [phone] Please do not come in for this visit. Your provider will call you at the number you provided. 12/30/2019 3:40 PM Gretchen Yoon MD Cardiology at [facility] Arrive at: Home [phone] Please do not come in for this visit. Your provider will call you at the number you provided. Future Orders Complete By Expires Referral to Cardiac Rehab [[id number] Custom] As directed Process Instructions: If no progress note charted, please enter Clinical details in comments. Scheduling Instructions: Questions: My question or request is: STEMI. Cardiac rehab at [facility] Referral to [facility] [REF43 Custom] As directed Process Instructions: If no progress note charted, please enter Clinical details in comments. Scheduling Instructions: Questions: My question or request is: patient with inferior stemi with history of statin allergy (rash) - please evaluate for psck9 inhibitor. Referral to Home Health - at DISCHARGE [FIU5580 CPT(R)] As directed Process Instructions: Scheduling Instructions: Comments: DOCUMENTATION FOR VNA SERVICES PATIENT'S LOCATION: Angel Luis Corcoran [address] [address] (home) Trench Shovel Operator's Name: Self In discussion with the attending physician, it is certified that this patient is under his/her care and that MD, or an TUFT MACHINE OPERATOR, LIFE SKILLS COORDINATOR, or PA who is working directly with him/her, had a jndu-vf-qhhp encounter that meets the physician jyih-pu-mikf encounter requirements with this patient on 12/07/2019. [...] ADLs. HOME HEALTH CARE AGENCY: [facility], PHONE: [phone] FAX: [phone] Start of care: 24-48 hours after hospital [...] Lam MD [address] / [place] [address] All A agencies which cover the area of patient's residence have been reviewed, either verbally or in writing, and patient/family have chosen the home health care agency noted. Questions: Agency name and contact information: [facility] Patient location post discharge: Home What services are requested: Registered Nurse Physical Therapy Occupational Therapy Start date: Responsible MD post discharge contact info: PCP Your PCP: France Lam MD [phone] For questions regarding this document or issues relating to this hospitalization on the Cardiology Service, please contact your inpatient physician through the [facility] Sweet Good[employer] Machine Operator . Issues after hours and on weekends will be handled by the Solution Developer on-call. Patient Instructions: Neurology Your Diagnosis: [...] follow-up appointment in the neurology clinic at [facility]. See below for the appointment time. If you do not have an appointment, you will be called with a time/date for this appointment. ??? Primary Care Provider: Please follow up with your Primary Care Provider [facility] General Instructions None Future Appointments and Orders Future Appointments and Orders Future Appointments Provider Department Dept Phone 12/23/2019 1:30 PM Alfreda Salas APRN Neurosurgery at [facility] Arrive at: Home [phone] Please do not come in for this visit. Your provider will call you at the number you provided. 12/26/2019 9:40 AM Merlin Sanchez MD Cardiology at [facility] Arrive at: Home [phone] Please do not come in for this visit. Your provider will call you at the number you provided. 12/30/2019 3:40 PM Gretchen Yoon MD Cardiology at [facility] Arrive at: Home [phone] Please do not come in for this visit. Your provider will call you at the number you provided. Future Orders Complete By Expires Referral to Cardiac Rehab [[id number] Custom] As directed Process Instructions: If no progress note charted, please enter Clinical details in comments. Scheduling Instructions: Questions: My question or request is: STEMI. Cardiac rehab at [facility] Referral to [facility] [REF43 Custom] As directed Process Instructions: If no progress note charted, please enter Clinical details in comments. Scheduling Instructions: Questions: My question or request is: patient with inferior stemi with history of statin allergy (rash) - please evaluate for psck9 inhibitor. Referral to Home Health - at DISCHARGE [[id number] CPT(R)] As directed Process Instructions: Scheduling Instructions: Comments: DOCUMENTATION FOR VNA SERVICES PATIENT'S LOCATION: [address] [address] (home) Trench Shovel Operator's Name: Self In discussion with the attending physician, it is certified that this patient is under his/her care and that MD, or an TUFT MACHINE OPERATOR, LIFE SKILLS COORDINATOR, or PA who is working directly with him/her, had a jqxb-wi-ufpr encounter that meets the physician vxxe-sw-fqjb encounter requirements with this patient on 12/07/2019. [...] ADLs. HOME HEALTH CARE AGENCY: [facility], PHONE: [phone] FAX: [phone] Start of care: 24-48 hours after hospital [...] MD [address] / [place] [address] All A agencies which cover the area of patient's residence have been reviewed, either verbally or in writing, and patient/family have chosen the home health care agency noted. Questions: Agency name and contact information: [facility] Patient location post discharge: Home What services are requested: Registered Nurse Physical Therapy Occupational Therapy Start date: Responsible MD post discharge contact info: PCP Discharge References/Attachments Atrial Fibrillation (Scottish) Cardiac Rehabilitation (Scottish) Heart Failure (Scottish) Heart Failure: Limiting Sodium (Scottish) Hemorrhagic Stroke: General Info (Scottish) Smoking: Stopping (Scottish) Stroke Rehabilitation: General Info (Scottish) Pulmonary Embolism (Scottish) Riki Stevens MD PGY-3, Internal Medicine Cardiology S2, #[id number] Associated attestation - Shaka Lagos, Paris Lockett MD - 12/09/2019 4:44 PM EDT Cardiology Attending Discharge Addendum I was the assigned attending hr administrator for this clinical encounter. For the purposes [...] complications include novel onset, paroxysmal atrial fibrillation [[id number]: 5] & L-sided diplopia with potential hemineglect [...] My contact information: Paris Matt MD MPH [address] [address] (office); Pager #[phone] Email: [email or web address] documented in this encounter Discharge Instructions Patient InstructionsFiRiki de jesus MD - 12/02/2019 9:56 AM EDT Images from the original note were not included. Why you were hospitalized: You had a heart attack. You received clot-busting medications at another hospital and then at [facility] you had a stent placed in a [...] FOR ONE MONTH AND THEN STOP. Your hr administrator may tell you to start this medication again after one year. Clopidogrel (Plavix) 75 mg daily - This medication will help prevent clots from forming in your blood, which will help protect the stent that was placed in your heart vessel. TAKE THIS FOR ONE YEAR ANDTHEN DISCUSS WITH YOUR BUDGET TECHNICIAN WHETHER TO STOP. Amiodarone 400mg twice [...] follow up: Your primary care provider and hr administrator will manage your blood thinner (apixaban). You do not need lab monitoring of this medication. Diet: Please consume a healthy diet low in cholesterol Follow up Appointments: 12/10/2019 at 3:10PM with PCP Angel Luis Lott Future Appointments Date Time Provider Department Center 12/23/2019 1:30 PM Alfreda Salas APRN [facility] [id number] [facility] 12/26/2019 9:40 AM Merlin Sanchez MD [facility] CARD 4A [facility] 12/30/2019 3:40 PM Gretchen Yoon MD [facility] CARD 4A [facility] Future Appointments and Orders Future Appointments and Orders Future Appointments Provider Department Dept Phone 12/23/2019 1:30 PM Alfreda Salas APRN Neurosurgery at [facility] Arrive at: Home [phone] Please do not come in for this visit. Your provider will call you at the number you provided. 12/26/2019 9:40 AM Merlin Sanchez MD Cardiology at [facility] Arrive at: Home [phone] Please do not come in for this visit. Your provider will call you at the number you provided. 12/30/2019 3:40 PM Gretchen Yoon MD Cardiology at [facility] Arrive at: Home [phone] Please do not come in for this visit. Your provider will call you at the number you provided. Future Orders Complete By Expires Referral to Cardiac Rehab [[id number] Custom] As directed Process Instructions: If no progress note charted, please enter Clinical details in comments. Scheduling Instructions: Questions: My question or request is: STEMI. Cardiac rehab at [facility] Referral to [facility] [REF43 Custom] As directed Process Instructions: If no progress note charted, please enter Clinical details in comments. Scheduling Instructions: Questions: My question or request is: patient with inferior stemi with history of statin allergy (rash) - please evaluate for psck9 inhibitor. Referral to Home Health - at DISCHARGE [[id number] CPT(R)] As directed Process Instructions: Scheduling Instructions: Comments: DOCUMENTATION FOR VNA SERVICES PATIENT'S LOCATION: [address] [address] (home) Trench Shovel Operator's Name: Self In discussion with the attending physician, it is certified that this patient is under his/her care and that MD, or an TUFT MACHINE OPERATOR, LIFE SKILLS COORDINATOR, or PA who is working directly with him/her, had a svmz-na-nrlq encounter that meets the physician znzn-ez-brjh encounter requirements with this patient on 12/07/2019. [...] ADLs. HOME HEALTH CARE AGENCY: [facility], PHONE: [phone] FAX: [phone] Start of care: 24-48 hours after hospital [...] MD [address] / [place] [address] All A agencies which cover the area of patient's residence have been reviewed, either verbally or in writing, and patient/family have chosen the home health care agency noted. Questions: Agency name and contact information: [facility] Patient location post discharge: Home What services are requested: Registered Nurse Physical Therapy Occupational Therapy Start date: Responsible MD post discharge contact info: PCP Your PCP: France Lam MD [phone] For questions regarding this document or issues relating to this hospitalization on the Cardiology Service, please contact your inpatient physician through the [facility] Sweet Goods Machine Operator . Issues after hours and on weekends will be handled by the Solution Developer on-call. Patient Instructions: Neurology Your Diagnosis: [...] follow-up appointment in the neurology clinic at [facility]. See below for the appointment time. If you do not have an appointment, you will be called with a time/date for this appointment. ??? Primary Care Provider: Please follow up with your Primary Care Provider within one to 2 weeks ofdischarge. AttachmentsThe following attachments cannot be sent through Care Everywhere. Atrial Fibrillation (Scottish)Cardiac Rehabilitation (Scottish)Heart Failure (Scottish)Heart Failure: Limiting Sodium (Scottish)Hemorrhagic Stroke: General Info (Scottish)Smoking: Stopping (Scottish)Stroke Rehabilitation: General Info (Scottish)Pulmonary Embolism (Scottish)documented in this encounter Medications at Time of [...] Nutrition Services Note - Low Nutrition Acuity Ange lLuis Salinas is a 74 y.o. male Reason [...] consulted in the interim. Vikash Rodriguez Pager: [phone] Paris Dodd MD - 12/08/2019 8:57 AM [...] complications include novel onset, paroxysmal atrial fibrillation [[id number]: 5] & L-sided diplopia with potential hemineglect [...] consulted in the interim. Vikash Rodriguez Pager: [phone] Paris Dodd MD - 12/07/2019 9:55 AM [...] complications include novel onset, paroxysmal atrial fibrillation [TXA0WG9VXCR: 5] & L-sided diplopia with potential hemineglect [...] complications include novel onset, paroxysmal atrial fibrillation [ZAP0CD3FIQJ: 5] & L-sided diplopia with potential hemineglect [...] complications include novel onset, paroxysmal atrial fibrillation [GLF5DY6NNMH: 5] & L-sided diplopia with potential hemineglect [...] today; additional complications include paroxysmal atrial fibrillation [CRX5OD4SQJR: 4] c/b possible cardioembolic stroke, ICH from [...] length from neck/greatest diameter to back wall: NIGERIEN 91, CAU 13: 19 mm CORTES 1, [...] a non-culprit artery. S/P DESx3 in the fmrgcvvx-yf-aesjsm RCA. Aspiration thrombectomy performed, and integrellin bolus [...] complications include novel onset, paroxysmal atrial fibrillation [JVW0LW9AOEK: 5] & L-sided diplopia with potential hemineglect [...] R occipital cardioembolic stroke #Paroxysmal Afib with ZY0NXYAA9V score of 5 #New segmental bilateral PEs [...] Glasgow MD PGY1, Internal Medicine Cardiology S2, #7128 Associated attestation - Paris Dodd MD - 12/05/2019 2:59 PM EDT I was the assigned attending hr administrator for this clinical encounter. For the purposes [...] 12/04/2019 10:36 AM EDT Office of Care Management(OCM)/Securities Consultant(CM)/Discharge Planning Service: Cardiology S2 team CM Bernie Alexander,RN,BSN,MA,ACM pgr [phone] Reviewed record and in Cardiology Rounds with MD team,CMs, child care director, SUSTAINABILITY COACH. Pt is anticipated ready for d/c later [...] AD to his PCP and to any [facility] appt for each to have on file. [...] complications include novel onset, paroxysmal atrial fibrillation [BHJ0WX6NFWD: 4] & L-sided diplopia with potential hemineglect [...] a non-culprit artery. S/P DESx3 in the qwsbxgbo-qb-wzxqdk RCA. Aspiration thrombectomy performed, and integrellin bolus [...] complications include novel onset, paroxysmal atrial fibrillation [ADQ4ZK7DAIW: 5] & L-sided diplopia with potential hemineglect [...] R occipital cardioembolic stroke #Paroxysmal Afib with GB3AXHPS3E score of 5 - No anticoagulation for [...] Glasgow MD PGY1, Internal Medicine Cardiology S2, #2778 I have seen the patient and reviewed [...] in my clinic. Gretchen Yoon MD Pager [phone] Derian Pascual RN - 12/03/2019 9:29 AM [...] Discharge: None Electronically signed: Derian Pascual RN, Securities Consultant Pgr: [phone] 12/03/2019 9:29 AM Gretchen [...] complications include novel onset, paroxysmal atrial fibrillation [LIJ5LX8YKTV: 4] & L-sided diplopia with potential hemineglect [...] a non-culprit artery. S/P DESx3 in the rrzksxww-uv-fuxnjq RCA. Aspiration thrombectomy performed, and integrellin bolus [...] complications include novel onset, paroxysmal atrial fibrillation [OPW7FM3UUJL: 5] & L-sided diplopia with potential hemineglect [...] [facility]. Patient voiced strong will to quit smoking now, understood that we have resources available for help. Plan [P]: --Neurologic-- # Concern for Left-Sided Diplopia, r/o Hemineglect # Concern for CVA, last-known well 11/29/19 - MRI showed possible cardioembolic stroke #Afib with NL5RXHIE9A score of 5 - Stroke Team Consulted; [...] Anticoagulation/Arrhythmia # Novel Onset, Paroxsymal Atrial Fibrillation [YQQ0XL7SJRK: 5] - Hold off anticoagulation for at [...] w straight cath prn # Nutrition - [facility] Diet, 2g Na. -- Hematology/Oncology-- # Mild [...] Glasgow MD PGY1, Internal Medicine Cardiology S2, #6802 I have seen the patient and reviewed the resident's above history and I agree with the details as written. The assessment and plan were formulated in discussion with me and I agree with them as documented. Gretchen Yoon MD Pager [phone] Raul Hein RN - 12/03/2019 5:55 AM [...] Negative mcL Appearance UA Clear Clear Spec [place] UA 1.026 1.006 - 1.030 Color UA [...] PGY3 Neurology Resident 12/01/2019 Vascular Neurology Pager [phone] Neurology Attending Attestation I evaluated the patient [...] documented. Deepthi Roman MD Vascular Neurology Standard [facility] Swallow Screen: This screen is to be [...] diet as medical provider deems appropriate. Consider SMOKING TOBACCO CUTTER OPERATOR consult for full evaluation and diet [...] complications include novel onset, paroxysmal atrial fibrillation [QGO1EK4PGSR: 4] & L-sided diplopia with potential hemineglect [...] a non-culprit artery. S/P DESx3 in the yngcnhap-pd-yewxrl RCA. Aspiration thrombectomy performed, and integrellin bolus [...] complications include novel onset, paroxysmal atrial fibrillation [PHS0JP6BVYW: 5] & L-sided diplopia with potential hemineglect [...] Anticoagulation/Arrhythmia # Novel Onset, Paroxsymal Atrial Fibrillation [HZG0GW4PXEB: 5] - Hold off anticoagulation - pending [...] tamsulosin d/t low BP. # Nutrition - [facility] Diet -- Hematology/Oncology-- # Mild Thrombocytopenia, unclear [...] Glasgow MD PGY1, Internal Medicine Cardiology S2, #1960 I have seen the patient and reviewed [...] the ICU team. Gretchen Yoon MD Pager [phone] Natalia Claros APRN - 12/02/2019 8:38 AM [...] - We are signing off. Please page [phone] with any questions or concerns. For questions please call NSGY pager [phone] Natalia Claros APRN 12/02/2019 8:38 AM Clinical Documentation Improvement: Active Hospital Problems Diagnosis ??? Acute ST elevation myocardial infarction (STEMI) of inferior wall ??? Intracranial hemorrhage ??? Hyperlipidemia ??? Tobacco abuse ??? Claudication from peripheral vascular disease, left Resolved Hospital Problems No resolved problems to display. Tello Hsu, MAP COMPILER - 12/02/2019 2:06 AM EDT 12/01/192009 Oxygen [...] Scan in afternoon. Upon arrival back in [facility] placed on low flow NC at [...] complications include novel onset, paroxysmal atrial fibrillation [SQZ4LY0XAXF: 4] & L-sided diplopia with potential hemineglect for which CVA evaluationto be pursued. Active Problems/Subjective: - 11/28: admitted for inferior STEMI, RV failure requiring pressor - got lytics, aspirin and plavix load, heparin gtt, and eptifibatide. 3 MACARIO stents to RCA. [place] cath - low wedge & CVP so [...] a non-culprit artery. S/P DESx3 in the ukajosni-tu-xpdbca RCA. Aspiration thrombectomy performed, and integrellin bolus [...] complications include novel onset, paroxysmal atrial fibrillation [DOK3LR0NFHM: 4] & L-sided diplopia with potential hemineglect [...] Anticoagulation/Arrhythmia # Novel Onset, Paroxsymal Atrial Fibrillation [[id number]: 4] - Obtain: TTE - Pending CVA [...] tamsulosin d/t low BP. # Nutrition - [facility] Diet -- Hematology/Oncology-- # Mild Thrombocytopenia, unclear [...] MD, PGY1 PGY3, Internal Medicine Cardiology S2, #[id number] I have seen the patient and reviewed [...] down the line. Gretchen Yoon MD Pager [phone] ?? Gretchen Yoon MD Pager [phone] Natalia Claros APRN - 12/01/2019 1:33 AM [...] per primary team For questions please call [facility] pager [phone] Natalia Claros APRN 12/01/2019 7:42 AM Clinical Documentation Improvement: Active Hospital Problems Diagnosis ??? Acute ST elevation myocardial infarction (STEMI) of inferior wall ??? Intracranial hemorrhage ??? Hyperlipidemia ??? Tobacco abuse ??? Claudication from peripheral vascular disease, left Resolved Hospital Problems No resolved problems to display. Tello Hsu, MAP COMPILER - 11/30/2019 8:44 PM EDT Respiratory Therapy [...] Narrative:Visited in response to request for Air Bag Curer services. Pt was awake, alert, oriented and in bed. Assessment:Patient coping positively with stresses of illness/hospitalization at this time. Pt says that he is hoping to get better and pt is living with and has children and grandchildren. Pt haspurpose of life and has reason to get getter and to be with family. Outcome: Provided emotional and spiritual support and encouraging presence. Air Bag Curer services accepted.Conversation to build trusting relationship.Provided pastoral [...] complications include novel onset, paroxysmal atrial fibrillation [[id number]: 4] & L-sided diplopia with potential hemineglect for which CVA evaluationto be pursued. Active Problems/Subjective: - Overnight, CVP < 12 for which a total of 1 L IVF provided - Today AM, patient complains of subjectively reported, left-sided hemineglect with floaters and diplopia [see: exam]. - Otherwise, c/o neck pain 2/2 R IJ [place] & L radial A line. Otherwise, denies [...] a non-culprit artery. S/P DESx3 in the vgkxtthp-il-hidmdq RCA. Aspiration thrombectomy performed, and integrellin bolus [...] complications include novel onset, paroxysmal atrial fibrillation [[id number]: 4] & L-sided diplopia with potential hemineglect [...] Anticoagulation/Arrhythmia # Novel Onset, Paroxsymal Atrial Fibrillation [[id number]: 4] - Obtain: TTE to confirm rhythm [...] tamsulosin d/t low BP. # Nutrition - [facility] Diet -- Hematology/Oncology-- # Mild Thrombocytopenia, unclear [...] MD, PGY3 PGY3, Internal Medicine Cardiology S2, #[id number] I have seen the patient and reviewed [...] down the line. Gretchen Yoon MD Pager [phone] Paola Capps RN - 11/30/2019 6:57 AM EDT PT still requiring 4 of levo, several attempts to titrate down (maps in 70;s) But maps would drop toless than 65. Pt very restless in bed Raising and lowering head denies pain . Integrillin stopped [id number] when bottle complete , urine tea colored [...] PCP: France Lam MD PCP phone #: [phone] Perishable Freight Inspector: None ID/Chief Complaint: Chest pain History of [...] and Compazine. He was transferred directly to [facility] via [facility] for further management. Patient had an emergent PCI with 3 MACARIO stents placed to his RCA, with mild disease of LCX (report pending) at [facility]. He was found to be persistently hypotensive requiring Levo up to 10mcg/min. He was transferred to [facility] after the cath procedure. Bedside RHC [...] ??? Penicillins Pt doesn't remember reaction ??? Rnhnnnf-Ndr-Rzn Reductase Inhibitors Stiff neck, upset stomach, back pain Family History: Mother: Father: [place] 2 Uncles with MIs Social History: Tobacco: Current active smoker 1 ppd. 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 Vitals: Last value Range last [...] in the last 7068 hours. Invalid input(s): [id number] Heme: No results for input(s): LDH, HAPTOGLOBIN, [...] OSH prior to transfer and PCI at [facility]. Massive inferior STEMI with troponin level 20, currently in CVCC due to pressor requirement. BedsideRHC demonstrated evidence of elevated right sided heart failure, but his wedge was wnl. He received 1L bolus with improvement of his blood pressure and reduction of his pressor requirement. PLAN: Admit to Cardiology, S2 Team Pager # [phone] #Inferior STEMI, LEYLA 149 - Resolving EKG [...] inferior STEMI s/p lytic therapy. Transferred to [facility] and underwent successful PCI of the RCA with MACARIO x3. Gretchen Yono MD Pager [phone] documented in this encounter Procedure Notes Juventino [...] to the planned procedure. Hand Hygiene: The rig hand did perform hand hygiene prior to arterial [...] a suspected line-associated infection. Location of Procedure: [facility] Risks and Benefits: The risks and [...] to the planned procedure. Hand Hygiene: The rig hand did perform hand hygiene prior to line [...] Introducer Insertion Attempts: 1 Comments: Floating the [place] Catheter Attempts: 1 Comments: Sterile Dressing: Biopatch [...] better pt back in SR. Please page [phone] for any more cares or concerns Plan [...] complications include novel onset, paroxysmal atrial fibrillation [[id number]: 5]& L-sided diplopia with potential hemineglect for [...] Total Evaluation Minutes, Occupational Therapy: 10 Pager: [phone] FRANCINE Nuñez Occupational Therapy Rehabilitation Department Plan [...] complications include novel onset, paroxysmal atrial fibrillation [OXH5JW0NBTL: 5] & L-sided diplopia with potential hemineglect [...] rails). Baseline Mobility: Independent. Drives. 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 Time IN / OUT: 0474-0266 Total Evaluation Minutes, Physical Therapy: 15(gtx1) Barbara Baldwin, PT Pager: [phone] Physical Therapy Inpatient Rehabilitation Department Plan of [...] received. Chart reviewed. I met with Angel Lusi this afternoon to discuss his tobacco use and assess his readiness to quit. He declined tobacco treatment services reporting that he receives all he needs through the [facility]. Consult refused. Romain Tran, MSN, RN-, [facility] Tobacco Director Data Architecture [facility] Pager #[phone] Plan of Care - Romain Oglesby OT [...] complications include novel onset, paroxysmal atrial fibrillation [[id number]: 5] & L-sided diplopia with potential hemineglect [...] and measurable assessment of functional outcome. Pager: [phone] ROMAIN OGLESBY OT 12/03/2019 Occupational Therapy Rehabilitation [...] in an outpatient cardiac rehabilitation program at [facility] was discussed. Patient agrees to a referral to this program. His has been a cardiac rehab patient at [facility] and he is familiar with [...] complications include novel onset, paroxysmal atrial fibrillation [GRA2HJ9DSCW: 5] & L-sided diplopia with potential hemineglect [...] rails). Baseline Mobility: Independent. Drives. 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 Time IN / OUT: 8149-6065 Total Evaluation Minutes, Physical Therapy: 25(eval, gtx1) Barbara Baldwin, PT Pager: [phone] Physical Therapy Inpatient Rehabilitation Department Consult Note [...] Please contact JOHANNA NOBLES RN on pager [phone] or the wound care team at [phone] or pager [phone] skin and wound care concerns or questions. [...] making law. Any patient receiving carspousee at [facility] must abide by [place] law. The hierarchy [...] (i) The agent with financial power of degreaser or a conservator appointed in accordance with [...] Insurance: N/A Prescription Coverage: Yes Preferred Pharmacy: [place], [place] Other: No Primary Care Provider: France Lam MD [phone] Patient/Caregiver Goals of Treatment: Return home Potential Needs for Transition of Care: Rehab/SNF: Based on discussions with the multi-disciplinary healthcare team, the patient would benefit from SNF level of care at discharge. ?? I have met with the patient to discuss discharge planning needs. I have provided the [facility], Officeof Care Management letter from the Green Jobs Trainer pertaining to rehab referrals. I have also provided a letter describing our affiliations within the [facility] and educated them about their right [...] referrals to: ?? [facility] [address] [place] [id number] ?? [address] , [place] [address] Note routed to Informatics Physician who will communicate referrals to facilities and provide any required information. Home Health: If therapies recommend home w/ VNA, the patient has been provided a list of Home Health Agencies/DME vendors which serve their preferred geographic area. A letter describing our affiliations was reviewed with them and they were educated about their right to choose where referrals are placed. Patient requests referral to [facility]. PHONE: [phone] FAX: [phone] Referral routed to the Informatics Physician for matching with agency/vendor and to provide [...] Insured w/ Medicare. Gets medications filled at [facility] in [place], [place]. Son to transport at discharge Plan: Discharge dispo depending on patient's physical recovery; SNF vs home w/ VNA. A member of the Care Management team will continue to monitor progress, follow for continuity of care and assist with transition of care planning. Derian Pascual RN Pager: [phone] Plan of Care - Estefani Encarnacion RN [...] ??? Penicillins Pt doesn't remember reaction ??? Brxyxum-Unr-Dac Reductase Inhibitors Stiff neck, upset stomach, back [...] noncontrast head CT and CT of [place] at 1600 hrs. We will [...] vision concerning for stroke. Patient presented to [facility] in transfer for a STEMI after presenting [...] ??? Penicillins Pt doesn't remember reaction ??? Icwwzns-Ipu-Njq Reductase Inhibitors Stiff neck, upset stomach, back [...] file Gets together: Not on file Attends holiness service: Not on file Active member of [...] L Elbow flexion 5/5 R, 5/5 L It Business Analyst LE: 5/5 R, 5/5 L Hip flexion [...] PGY3 Neurology Resident 11/30/2019 Vascular Neurology Pager [phone] Standard [facility] Swallow Screen: This screen is to be [...] diet as medical provider deems appropriate. 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 Evan Mejia MD Department of Neurology [facility] Brief Op Note - Gretchen Yoon MD - 11/29/2019 8:38 PM EDT Brief Operative Note Patient Name: Angel Luis Salinas : [id number] MR#: [id number] Case Date: 11/29/2019 Surgeon: Surgeon(s) and Role: * Gretchen Yoon MD - Primary * Aidan Ward MD - Fellow Preoperative diagnosis: Inferior STEMI Postoperative diagnosis: Inferior STEMI Procedure(s) (LRB): CARDIAC CATHETERIZATION (N/A) Findings: Discrete 90% stenosis in the prox-to-mid RCA. Severe diffuse disease in the distal vessel. Discrete LCX stenosis in a non-culprit artery. S/P DESx3 in the jrdvtdbm-no-kzacpc RCA. Aspiration thrombectomy performed, and integrellin bolus x2+ infusion. Nicardipine given during case due to intermittent sluggish flow. Complications: None documented in this encounter Plan of Treatment Upcoming Encounters Date Type Specialty Care Team Description 06/30/2022 Office Visit Endocrinology Alan Terrell MD [facility] ENDOCRINOLOGY [place], [place] [address] (Wo rk) Scheduled Referrals Name [...] are i n the results section. CT [place] W STAT 11/30/2019 4:36 Res [...] Potassium 3.9 3.5 - 5.0 [facility] D[facility] mmol/L [facility] Comment: Please note: ??Patients [...] Organization Address City/State/ZIP Code Phon e Number [place] [id number] (ABNORMAL) Hemogram (12/08/2019 12:39 PM EDT) Analysis Performed At Patho logist Time Signature WBC 9.9 (H) 4.0 - 9.5 [place] x10(3)/[facility] LABORATORY RBC 4.51 (L) 4.58 - [place] 5.54 [facility] x10(6)/[facility] LABORATORY Hemoglobin 13.0 (L) 13.7 - [place] 16.5 gm/dL [facility] Hematocrit 40.5 40.5 - [place] 48.5 % [facility] MCV 89.8 82.9 - [place] 93.1 [facility] LABORATORY MCH 28.8 27.5 - [place] 32.1 pg [facility] MCHC 32.1 32.0 - [place] 35.7 gm/dL [facility] Platelets 214 145 - 357 [place] x10(3)/[facility] LABORATORY RDWSD 49.2 (H) 36.0 - [place] 45.0 [facility] LABORATORY RDWCV 15.1 (H) 11.4 - [place] 13.8 % [facility] MPV 12.1 7.6 - 12.9 [place] [facility] LABORATORY nRBC % Auto 0.0 % [facility] nRBC Abs Auto 0.000 0.000 - [place] 0.000 [facility] x10(3)/[facility] LABORATORY Specimen Anatomical Collection Method Collection Time Receive d Time (Source) Location / / Volume Laterality Blood specimen 12/08/2019 12:39 0 (specimen) PM EDT 12:47 PM EDT Resulting Agency Comment Spec In Lab Gretchen Yoon MD HEMATOLOGY ORDERABLES Performing Organization Address City/[facility]/ZIP Code Phon e Number [address] Hepatic Function Panel (12/08/2019 6:28 AM EDT) P athologist Signature Total Protein 6.6 6.1 - 8.0 [facility] DOV gm/dL [facility] Albumin 3.2 3.2 - 5.2 [facility] D[facility] gm/dL [facility] AST 18 0 - 39 [facility] unit/L [facility] ALT 13 0 - 55 [facility] unit/L [facility] Alk Phos 64 40 - 130 [facility] unit/L [facility] Total 0.4 0.2 - 1.3 [facility] Bilirubin mg/dL [facility] Bili, Direct 0.1 0.0 - 0.3 [facility] mg/dL [facility] Specimen Anatomical Collection Method Collection Time Receive d Time (Source) Location / / Volume Laterality Blood specimen Venous Draw / 12/08/2019 6:28 AM 2019 6:36 (specimen) Unknown EDT AM EDT Resulting Agency Comment Spec In Lab Riki Stevens MD CHEMISTRY ORDERABLES Performing Organization Address City/State/ZIP Code Phon e Number [place], [place] [id number] [place] [address] (ABNORMAL) TSH (12/08/2019 6:28 AM EDT) P athologist Signature TSH 5.27 (H) 0.27 - 4.20 [place] mcIU/mL [facility] Specimen Anatomical Collection Method Collection Time Receive d Time (Source) Location / / Volume Laterality Blood specimen Venous Draw / 12/08/2019 6:28 AM 2019 6:36 (specimen) Unknown EDT AM EDT Resulting Agency Comment Spec In Lab Darrell Glasgow MD CHEMISTRY ORDERABLES Performing Organization Address City/State/[place] [address] Potassium (12/08/2019 6:28 AM EDT) P athologist Signature Potassium 4.2 3.5 - 5.0 [facility] mmol/L [facility] Comment: Please note: ??Patients [...] Lagos MD CHEMISTRY ORDERABLES Performing Organization Address City/[facility]/[place] [address] (ABNORMAL) Differential, Automated (12/08/2019 12:43 AM EDT) Patholo gist Method Time Signature Neutrophils % 60.7 % [facility] Neutr Abs (ANC) 6.81 (H) 1.70 - [facility] 6.10 [facility] x10(3)/[facility] LABORATORY Lymphocytes % 23.4 % [facility] Lymphocytes Abs 2.6 0.9 - 3.2 [facility] x10(3)/[facility] LABORATORY Monocytes % 10.0 % [facility] Monocyte Abs 1.1 (H) 0.3 - 0.9 [facility] x10(3)/[facility] LABORATORY Eosinophils % 3.7 % [facility] Eosinophils Abs 0.4 0.0 - 0.4 [facility] x10(3)/[facility] LABORATORY Basophils % 1.2 % [facility] Basophils Abs 0.1 0.0 - 0.1 [facility] x10(3)/[facility] LABORATORY Immature Gran % 1.00 % [place] [...] Gran Abs 0.11 (H) 0.00 - 0.04 x10(3)/[facility] LABORATORY Specimen Anatomical Collection Method Collection Time Receive d Time (Source) Location / / Volume Laterality Blood specimen 12/08/2019 12:43 0 (specimen) AM EDT 12:52 AM EDT Resulting Agency Comment Spec In Lab Riki Stevens MD HEMATOLOGY ORDERABLES Performing Organization Address City/State/ZIP Code Phon e Number [place] [phone] (ABNORMAL) Hemogram (12/08/2019 12:43 AM EDT) Analysis Performed At Patho logist Time Signature WBC 11.2 (H) 4.0 - 9.5 [facility] x10(3)/[facility] LABORATORY RBC 4.46 (L) 4.58 - [facility] 5.54 [facility] x10(6)/[facility] LABORATORY Hemoglobin 13.1 (L) 13.7 - [facility] 16.5 gm/dL [facility] Hematocrit 40.5 40.5 - [facility] DOV 48.5 % [facility] MCV 90.8 82.9 - [facility] 93.1 [facility] LABORATORY MCH 29.4 27.5 - [place] 32.1 pg [facility] MCHC 32.3 32.0 - [facility] 35.7 gm/dL [facility] Platelets 215 145 - 357 [facility] x10(3)/[facility] LABORATORY RDWSD 49.8 (H) 36.0 - [place] 45.0 [facility] LABORATORY RDWCV 15.2 (H) 11.4 - [facility] DOV 13.8 % [facility] MPV 12.3 7.6 - 12.9 [facility] LABORATORY nRBC % Auto 0.0 % [facility] nRBC Abs Auto 0.000 0.000 - [place] 0.000 [facility] x10(3)/[facility] LABORATORY Specimen Anatomical Collection Method Collection Time Receive d Time (Source) Location / / Volume Laterality Blood specimen 12/08/2019 12:43 0 (specimen) AM EDT 12:52 AM EDT Resulting Agency Comment Spec In Lab Riki Stevens MD HEMATOLOGY ORDERABLES Performing Organization Address City/State/ZIP Code Phon e Number [address] Magnesium (12/08/2019 12:43 AM EDT) P athologist Signature Magnesium 1.01 0.69 - 1.07 [facility] mmol/L [facility] Specimen Anatomical Collection Method Collection Time Receive d Time (Source) Location / / Volume Laterality Blood specimen 12/08/2019 12:43 0 (specimen) AM EDT 12:52 AM EDT Resulting Agency Comment Spec In Lab Gretchen Yoon MD CHEMISTRY ORDERABLES Performing Organization Address City/State/ZIP Code Phon e Number [address] (ABNORMAL) BMP w/fasting Glucose (12/08/2019 12:43 AM EDT) P athologist Signature Glucose 106 (H) 65 - 99 [facility] Fasting mg/dL [facility] Comment: ?Fasting* Glucose Interpretive [...] of Diabetes Mellitus, Position Statement from the [place] [employer]. ??Diabete s Care, Volume 33, Supplement 1, Jul 2009 BUN 14 10 - 20 mg/dL [facility] Creatinine 1.16 0.80 - 1.50 [...] of body mass or the acutely ill. http://[employer]/[facility]nkChristophe & Co eGFR 72 >=60 mL/min/1.73 m?? [facility] Comment: The eGFR was calculated using the CKD-EP I equation. As with all creatinine based estimates of kidney function, eGFR values calculated with the CKD-EPI equation are not accurate in patients wi th acute kidney failure, extremes of body mass or the acutely ill. http://[employer]/[facility]VIEWnkf Specimen Anatomical Collection Method Collection Time Receive d Time (Source) Location / / Volume Laterality Blood specimen 12/08/2019 12:43 0 (specimen) AM EDT 12:52 AM EDT Resulting Agency Comment Spec In Lab Gretchen Yoon MD CHEMISTRY ORDERABLES Performing Organization Address [facility]/[place] [address] Heparin (unfractionated) Level (12/08/2019 12:43 AM EDT) athologist Signature Heparin UFH 0.60 IU/mL [facility] LABORATORY Comment: Guidelines for therapeutic unfractionate d [...] Lagos MD HEMATOLOGY ORDERABLES Performing Organization Address [facility]/ZIP [place] [address] [facility] LAB[address] Potassium (12/07/2019 8:39 PM EDT) athologist Signature Potassium 4.1 3.5 - 5.0 [facility] mmol/L [facility] Comment: Please note: ??Patients [...] Lagos MD CHEMISTRY ORDERABLES Performing Organization Address City/[facility]/[place] [address] Potassium (12/07/2019 4:02 PM EDT) P athologist Signature Potassium 4.0 3.5 - 5.0 [facility] mmol/L [facility] Comment: Please note: ??Patients [...] Yoon MD CHEMISTRY ORDERABLES Performing Organization Address City/[facility] [place] [address] (ABNORMAL) Hemogram (12/07/2019 4:02 PM EDT) Analysis Performed At Patho logist Time Signature WBC 17.4 (H) 4.0 - 9.5 [place] D[facility] x10(3)/[facility] LABORATORY RBC 4.58 4.58 - [employer] [facility] 5.54 [facility] x10(6)/[facility] LABORATORY Hemoglobin 13.5 (L) 13.7 - [place] 16.5 gm/dL [facility] Hematocrit 40.8 40.5 - [place] 48.5 % [facility] MCV 89.1 82.9 - [place] 93.1 fL [facility] MCH 29.5 27.5 - [place] 32.1 [facility] LABORATORY MCHC 33.1 32.0 - [place] MONAE 35.7 gm/dL [facility] Platelets 238 145 - 357 [facility] x10(3)/[facility] LABORATORY RDWSD 48.8 (H) 36.0 - [place] MONAE 45.0 [facility] LABORATORY RDWCV 15.0 (H) 11.4 - [facility] DOV 13.8 % [facility] MPV 12.2 7.6 - 12.9 [facility] LABORATORY nRBC % Auto 0.0 % [facility] nRBC Abs Auto 0.000 0.000 - [place] D[facility] 0.000 [facility] x10(3)/[facility] LABORATORY Specimen Anatomical Collection Method Collection Time Receive d Time (Source) Location / / Volume Laterality Blood specimen 12/07/2019 4:02 PM 020 4:08 (specimen) EDT PM EDT Resulting Agency Comment Spec In Lab Gretchen Yoon MD HEMATOLOGY ORDERABLES Performing Organization Address City/State/[place] [address] EKG 12 Lead (12/07/2019 [...] (Bezet) Calculated P -12 degrees [employer]USE [employer] [place] Calculated R 10 degrees [facility]USE [facility] [place] Calculated T -138 degrees MUSE SYSTEM [place] INTERPRETATION Supraventricular tachycardia MUSE SYSTEM Low voltage [...] athologist Signature Potassium 4.2 3.5 - 5.0 [facility] mmol/L [facility] Comment: Please note: ??Patients [...] Organization Address City/State/[place] [address] Heparin (unfractionated) Level (12/07/2019 11:43 AM EDT) athologist Signature Heparin UFH 0.59 IU/mL [facility] LABORATORY Comment: Guidelines for therapeutic unfractionate d [...] Lagos MD HEMATOLOGY ORDERABLES Performing Organization Address City/[facility]/ZIP Code Phon e Number [place] [id number] Heparin (unfractionated) Level (12/07/2019 5:20 AM EDT) P athologist Signature Heparin UFH 0.53 IU/mL [facility] LABORATORY Comment: Guidelines for therapeutic unfractionate d [...] Lagos MD HEMATOLOGY ORDERABLES Performing Organization Address City/[facility]/ZIP Code Phon e Number [address] (ABNORMAL) Differential, Automated (12/07/2019 5:20 AM EDT) Patholo gist Method Time Signature Neutrophils % 62.4 % [facility] LABORATORY Neutr Abs (ANC) 5.46 1.70 - [facility] 6.10 [facility] x10(3)/[facility] LABORATORY Lymphocytes % 20.3 % [facility] LABORATORY Lymphocytes Abs 1.8 0.9 - 3.2 [facility] x10(3)/[facility] LABORATORY Monocytes % 11.0 % [facility] LABORATORY Monocyte Abs 1.0 (H) 0.3 - 0.9 [facility] x10(3)/[facility] LABORATORY Eosinophils % 4.5 % [facility] LABORATORY Eosinophils Abs 0.4 0.0 - 0.4 [facility] x10(3)/[facility] LABORATORY Basophils % 0.9 % [facility] LABORATORY Basophils Abs 0.1 0.0 - 0.1 [facility] x10(3)/[facility] LABORATORY Immature Gran % [...] Gran Abs 0.08 (H) 0.00 - 0.04 x10(3)/[facility] LABORATORY Specimen Anatomical Collection Method Collection Time Receive d Time (Source) Location / / Volume Laterality Blood specimen 12/07/2019 5:20 AM 020 5:37 (specimen) EDT AM EDT Resulting Agency Comment Spec In Lab Riki Stevens MD HEMATOLOGY ORDERABLES Performing Organization Address City/State/[place] [address] (ABNORMAL) Hemogram (12/07/2019 5:20 AM EDT) Analysis Performed At Patho logist Time Signature WBC 8.7 4.0 - 9.5 [facility] x10(3)/[facility] LABORATORY RBC 4.20 (L) 4.58 - [facility] 5.54 [facility] x10(6)/[facility] LABORATORY Hemoglobin 12.3 (L) 13.7 - [facility] 16.5 gm/dL [facility] LABORATORY Hematocrit 37.4 (L) 40.5 - MELINA MONAE 48.5 % [facility] LABORATORY MCV 89.0 82.9 - MELINA VILLANUEVACK 93.1 [facility] LABORATORY MCH 29.3 27.5 - MELINA VILLANUEVACK 32.1 pg [facility] LABORATORY MCHC 32.9 32.0 - MELINA WHITTENCOCK 35.7 gm/dL [facility] LABORATORY Platelets 181 145 - 357 [facility] x10(3)/[facility] LABORATORY RDWSD 47.7 (H) 36.0 - MELINA WHITTENCOCK 45.0 [facility] LABORATORY RDWCV 14.8 (H) 11.4 - MELINA VILLANUEVACK 13.8 % [facility] LABORATORY MPV 12.3 7.6 - 12.9 [facility] LABORATORY nRBC % Auto 0.0 % [facility] LABORATORY nRBC Abs Auto 0.000 0.000 - MELINA MARSHDOV 0.000 [facility] x10(3)/[facility] LABORATORY Specimen Anatomical Collection Method Collection Time Receive d Time (Source) Location / / Volume Laterality Blood specimen 12/07/2019 5:20 AM 020 5:37 (specimen) EDT AM EDT Resulting Agency Comment Spec In Lab Riki Stevens MD HEMATOLOGY ORDERABLES Performing Organization Address City/[facility]/ZIP Code Phon e Number [address] Magnesium (12/07/2019 5:20 AM EDT) athologist Signature Magnesium 0.89 0.69 - 1.07 [facility] mmol/L [facility] LABORATORY Specimen Anatomical Collection Method Collection Time Receive d Time (Source) Location / / Volume Laterality Blood specimen 12/07/2019 5:20 AM 020 5:37 (specimen) EDT AM EDT Resulting Agency Comment Spec In Lab Gretchen Yoon MD CHEMISTRY ORDERABLES Performing Organization Address City/[facility]/ZIP Code Phon e Number [address] (ABNORMAL) BMP w/fasting Glucose (12/07/2019 5:20 AM EDT) athologist Signature Glucose 100 (H) 65 - 99 [facility] Fasting mg/dL [facility] LABORATORY Comment: ?Fasting* Glucose Interpretive [...] of Diabetes Mellitus, Position Statement from the [place] [employer]. ??Diabete s Care, Volume 33, [...] of body mass or the acutely ill. http://[employer]/[facility] FAIRVIEWnkf eGFR 101 >=60 mL/min/1.73 m?? [facility] LABORATORY Comment: The eGFR was calculated using the CKD-EP I equation. As with all creatinine based estimates of kidney function, eGFR values calculated with the CKD-EPI equation are not accurate in patients wi th acute kidney failure, extremes of body mass or the acutely ill. http://[employer]/[facility]IRVIEWnkf Specimen Anatomical Collection Method Collection Time Receive d Time (Source) Location / / Volume Laterality Blood specimen 12/07/2019 5:20 AM 020 5:37 (specimen) EDT AM EDT Resulting Agency Comment Spec In Lab Gretchen Yoon MD CHEMISTRY ORDERABLES Performing Organization Address City/State/[place] [address] Heparin (unfractionated) Level (12/06/2019 10:14 PM EDT) athologist Signature Heparin UFH 0.29 IU/mL [facility] LABORATORY Comment: Guidelines for therapeutic unfractionate d [...] Organization Address City/State/ZIP [place] [address] Head wo Contrast [...] For questions regarding this report, please contact [facility] number below. ? Electronically signed by: Merari Collins [facility] ([phone]), at 12/06/2019 10:06 PM Narrative 12/06/2019 10:06 [...] Merari Collins [facility] ([phone]), at 12/06/2019 10:06 PM Paris Lagos MD IMG CT ORDERABLES (ABNORMAL) Hemogram (12/06/2019 4:20 PM EDT) Analysis Performed At Patho logist Time Signature WBC 10.4 (H) 4.0 - 9.5 [facility] [employer] x10(3)/[facility] LABORATORY RBC 4.32 (L) 4.58 - MELINA DOV 5.54 [facility] x10(6)/[facility] LABORATORY Hemoglobin 12.5 (L) 13.7 - MELINA DOV 16.5 gm/dL [facility] LABORATORY Hematocrit 38.4 (L) 40.5 - MELINA DOV 48.5 % [facility] LABORATORY MCV 88.9 82.9 - [facility] DOV 93.1 [facility] LABORATORY MCH 28.9 27.5 - [employer] 32.1 pg [facility] LABORATORY MCHC 32.6 32.0 - MELINA DOV 35.7 gm/dL [facility] LABORATORY Platelets 194 145 - 357 [facility] x10(3)/[facility] LABORATORY RDWSD 46.9 (H) 36.0 - [facility] DOV 45.0 [facility] LABORATORY RDWCV 14.6 (H) 11.4 - MELINA DOV 13.8 % [facility] LABORATORY MPV 11.9 7.6 - 12.9 [facility] DOV [facility] LABORATORY nRBC % Auto 0.0 % [facility] LABORATORY nRBC Abs Auto 0.000 0.000 - [employer] 0.000 [facility] x10(3)/[facility] LABORATORY Specimen Anatomical Collection Method Collection Time Receive d Time (Source) Location / / Volume Laterality Blood specimen 12/06/2019 4:20 PM 020 4:31 (specimen) EDT PM EDT Resulting Agency Comment Spec In Lab Gretchen Yoon MD HEMATOLOGY ORDERABLES Performing Organization Address City/State/ZIP Code Phon e Number [place] [id number] LAB[address]ORY Drive Heparin (unfractionated) Level (12/06/2019 4:20 PM EDT) athologist Signature Heparin UFH 0.30 IU/mL [facility] LABORATORY Comment: Guidelines for therapeutic unfractionate d [...] Address City/State/ZIP Code Phon e Number [address] Heparin (unfractionated) Level (12/06/2019 10:02 AM EDT) athologist Signature Heparin UFH <0.04 IU/mL [facility] LABORATORY Comment: Guidelines for therapeutic unfractionate d [...] Organization Address City/State/[place] [address] Magnesium (12/06/2019 3:36 AM EDT) P athologist Signature Magnesium 0.86 0.69 - 1.07 [facility] mmol/L [facility] LABORATORY Specimen Anatomical Collection Method Collection Time Receive d Time (Source) Location / / Volume Laterality Blood specimen 12/06/2019 3:36 AM 020 3:45 (specimen) EDT AM EDT Resulting Agency Comment Spec In Lab Gretchen Yoon MD CHEMISTRY ORDERABLES Performing Organization Address City/State/[place] [address] (ABNORMAL) BMP w/fasting Glucose (12/06/2019 3:36 AM EDT) P athologist Signature Glucose 103 (H) 65 - 99 [facility] Fasting mg/dL [facility] LABORATORY Comment: ?Fasting* Glucose Interpretive [...] of Diabetes Mellitus, Position Statement from the [place] [employer]. ??Diabete s Care, Volume 33, [...] of body mass or the acutely ill. http://[employer]/[facility]MCnkf eGFR 99 >=60 mL/min/1.73 m?? [facility] LABORATORY Comment: The eGFR was calculated using the CKD-EP I equation. As with all creatinine based estimates of kidney function, eGFR values calculated with the CKD-EPI equation are not accurate in patients wi th acute kidney failure, extremes of body mass or the acutely ill. http://[employer]/DHMCnkf Specimen Anatomical Collection Method Collection Time Receive d Time (Source) Location / / Volume Laterality Blood specimen 12/06/2019 3:36 AM 020 3:45 (specimen) EDT AM EDT Resulting Agency Comment Spec In Lab Gretchen Yoon MD CHEMISTRY ORDERABLES Performing Organization Address City/State/[place] [address] (ABNORMAL) Hemogram (12/06/2019 3:36 AM EDT) Analysis Performed At Patho logist Time Signature WBC 9.2 4.0 - 9.5 [facility] x10(3)/[facility] LABORATORY RBC 3.99 (L) 4.58 - MELINA DOV 5.54 [facility] x10(6)/[facility] LABORATORY Hemoglobin 11.9 (L) 13.7 - [facility] DOV 16.5 gm/dL [facility] LABORATORY Hematocrit 35.5 (L) 40.5 - MELINA DOV 48.5 % [facility] LABORATORY MCV 89.0 82.9 - [facility] DOV 93.1 [facility] LABORATORY MCH 29.8 27.5 - MELINA DOV 32.1 pg [facility] LABORATORY MCHC 33.5 32.0 - [facility] DOV 35.7 gm/dL [facility] LABORATORY Platelets 164 145 - 357 [facility] x10(3)/[facility] LABORATORY RDWSD 47.6 (H) 36.0 - [facility] DOV 45.0 [facility] LABORATORY RDWCV 14.7 (H) 11.4 - MELINA DOV 13.8 % [facility] LABORATORY MPV 11.9 7.6 - 12.9 [facility] LABORATORY nRBC % Auto 0.0 % [facility] LABORATORY nRBC Abs Auto 0.000 0.000 - [employer] 0.000 [facility] x10(3)/[facility] LABORATORY Specimen Anatomical Collection Method Collection Time Receive d Time (Source) Location / / Volume Laterality Blood specimen 12/06/2019 3:36 AM 020 3:45 (specimen) EDT AM EDT Resulting Agency Comment Spec In Lab Gretchen Yoon MD HEMATOLOGY ORDERABLES Performing Organization Address City/State/[place] [address] (ABNORMAL) Differential, Automated (12/05/2019 10:52 PM EDT) [facility] Method Time Signature Neutrophils % 61.9 % [facility] LABORATORY Neutr Abs (ANC) 6.02 1.70 - [facility] 6.10 [facility] x10(3)/[facility] LABORATORY Lymphocytes % 22.4 % [facility] LABORATORY Lymphocytes Abs 2.2 0.9 - 3.2 [facility] x10(3)/[facility] LABORATORY Monocytes % 10.4 % [facility] LABORATORY Monocyte Abs 1.0 (H) 0.3 - 0.9 [facility] x10(3)/[facility] LABORATORY Eosinophils % 4.1 % [facility] LABORATORY Eosinophils Abs 0.4 0.0 - 0.4 [facility] x10(3)/[facility] LABORATORY Basophils % 0.7 % [facility] LABORATORY Basophils Abs 0.1 0.0 - 0.1 [facility] x10(3)/[facility] LABORATORY Immature Gran % [...] Gran Abs 0.05 (H) 0.00 - 0.04 x10(3)/[facility] LABORATORY Specimen Anatomical Collection Method Collection Time Receive d Time (Source) Location / / Volume Laterality Blood specimen 12/05/2019 10:52 0 (specimen) PM EDT 10:59 PM EDT Resulting Agency Comment Spec In Lab Mandi Barrera MD HEMATOLOGY ORDERABLES Performing Organization Address City/State/[place] [address] (ABNORMAL) Hemogram (12/05/2019 10:52 PM EDT) Analysis Performed At Patho logist Time Signature WBC 9.7 (H) 4.0 - 9.5 [facility] x10(3)/[facility] LABORATORY RBC 4.07 (L) 4.58 - [facility] DOV 5.54 [facility] x10(6)/[facility] LABORATORY Hemoglobin 11.9 (L) 13.7 - [facility] 16.5 gm/dL [facility] LABORATORY Hematocrit 36.4 (L) 40.5 - [facility] 48.5 % [facility] LABORATORY MCV 89.4 82.9 - [facility] 93.1 [facility] LABORATORY MCH 29.2 27.5 - [facility] DOV 32.1 pg [facility] LABORATORY MCHC 32.7 32.0 - [facility] DOV 35.7 gm/dL [facility] LABORATORY Platelets 167 145 - 357 [facility] x10(3)/[facility] LABORATORY RDWSD 47.7 (H) 36.0 - [facility] DOV 45.0 [facility] LABORATORY RDWCV 14.6 (H) 11.4 - [facility] DOV 13.8 % [facility] LABORATORY MPV 12.1 7.6 - 12.9 [facility] LABORATORY nRBC % Auto 0.0 % [facility] LABORATORY nRBC Abs Auto 0.000 0.000 - [facility] ODV 0.000 [facility] x10(3)/[facility] LABORATORY Specimen Anatomical Collection Method Collection Time Receive d Time (Source) Location / / Volume Laterality Blood specimen 12/05/2019 10:52 0 (specimen) PM EDT 10:59 PM EDT Resulting Agency Comment Spec In Lab Mandi Barrera MD HEMATOLOGY ORDERABLES Performing Organization Address City/State/[place] [address] Heparin (unfractionated) Level (12/05/2019 10:52 PM EDT) P athologist Signature Heparin UFH <0.04 IU/mL [facility] LABORATORY Comment: Guidelines for therapeutic unfractionate d [...] Organization Address City/State/[place] [address] MRI Brain wwo Contrast [...] Merari Collins [facility] ([phone]), at 12/05/2019 10:02 PM Paris Lagos MD IMG MRI ORDERABLES (ABNORMAL) Hemogram (12/05/2019 1:00 PM EDT) Analysis Performed At Patho logist Time Signature WBC 8.7 4.0 - 9.5 [facility] x10(3)/[facility] LABORATORY RBC 4.17 (L) 4.58 - MELINA DOV 5.54 [facility] x10(6)/[facility] LABORATORY Hemoglobin 12.4 (L) 13.7 - [facility] 16.5 gm/dL [facility] LABORATORY Hematocrit 37.0 (L) 40.5 - [facility] DOV 48.5 % [facility] LABORATORY MCV 88.7 82.9 - [facility] DOV 93.1 [facility] LABORATORY MCH 29.7 27.5 - M[place]INA DOV 32.1 pg [facility] LABORATORY MCHC 33.5 32.0 - [facility] DOV 35.7 gm/dL [facility] LABORATORY Platelets 173 145 - 357 [facility] x10(3)/[facility] LABORATORY RDWSD 47.3 (H) 36.0 - [facility] DOV 45.0 [facility] LABORATORY RDWCV 14.6 (H) 11.4 - [facility] DOV 13.8 % [facility] LABORATORY MPV 12.1 7.6 - 12.9 [facility] LAB[facility]ATORY nRBC % Auto 0.0 % [facility] LABORATORY nRBC Abs Auto 0.000 0.000 - M[place]INA DOV 0.000 [facility] x10(3)/[facility] LABORATORY Specimen Anatomical Collection Method Collection Time Receive d Time (Source) Location / / Volume Laterality Blood specimen 12/05/2019 1:00 PM 020 1:13 (specimen) EDT PM EDT Resulting Agency Comment Spec In Lab Gretchen Yoon MD HEMATOLOGY ORDERABLES Performing Organization Address City/State/[place] [address] EKG 12 Lead (12/05/2019 10:52 AM EDT) Component Value Ref Range Test Analysis Performed Pathologis t Method Time At Signature Ventricular rate 72 BPM MUSE SYSTEM Atrial Rate 72 BPM MUSE SYSTEM P-R Interval 138 ms MUSE SYSTEM QRS Duration 96 ms MUSE SYSTEM Q-T Interval 396 ms MUSE SYSTEM QTC Calculated 433 ms MUSE SYSTEM (Bezet) Calculated P [place] 65 degrees MUSE SYSTEM Calculated R [place] 13 degrees MUSE SYSTEM Calculated T [place] 0 degrees MUSE SYSTEM INTERPRETATION Sinus rhythm Occasional Premature ventricular complexe s MUSE SYSTEM Possible Inferior infarct (cited on or before 29-NOV-2019) Abnormal ECG When compared with ECG of 04-DEC-2019 10:43, Sinus rhythm has replaced Atrial fibrillation Vent. rate has decreased BY ??86 BPM Confirmed by MD Ceja Daniel ([id number]) on 12/05/2019 3:55:22 PM Specimen Anatomical Collection Method Collection Time Receive d Time (Source) Location / / Volume Laterality 12/05/2019 10:52 12/05/2019 3:55 AM EDT PM EDT Paris Lagos MD ECG ORDERABLES Performing Organization Address City/State/ZIP Code Phon e Number MUSE SYSTEM Duplex Study for DVT, Bilat legs (12/05/2019 7:00 AM EDT) Component Value Ref Test Analysis Performed At [facility] gist Range Method Time Signature VB Text Department: Vascular Surgery Lab VASCUBASE Report Patient: [id number] (ANGEL LUIS SALINAS) CPT: 17415 ICD10: I26.99 Referring Physician: GRETCHEN YOON ?? [...] athologist Signature Magnesium 0.87 0.69 - 1.07 [facility] mmol/L [facility] LABORATORY Specimen Anatomical Collection Method Collection Time Receive d Time (Source) Location / / Volume Laterality Blood specimen 12/05/2019 4:18 AM 020 4:31 (specimen) EDT AM EDT Resulting Agency Comment Spec In Lab Gretchen Yoon MD CHEMISTRY ORDERABLES Performing Organization Address City/State/[place] [address] (ABNORMAL) BMP w/fasting Glucose (12/05/2019 4:18 AM EDT) P athologist Signature Glucose 104 (H) 65 - 99 [facility] Fasting mg/dL [facility] LABORATORY Comment: ?Fasting* Glucose Interpretive [...] of Diabetes Mellitus, Position Statement from the [place] [employer]. ??Diabete s Care, Volume 33, [...] of body mass or the acutely ill. http://[employer]/[facility] FAIRVIEWnkf eGFR 84 >=60 mL/min/1.73 m?? [facility] LABORATORY Comment: The eGFR was calculated using the CKD-EP I equation. As with all creatinine based estimates of kidney function, eGFR values calculated with the CKD-EPI equation are not accurate in patients wi th acute kidney failure, extremes of body mass or the acutely ill. http://[employer]/[facility]IRVIEWnkf Specimen Anatomical Collection Method Collection Time Receive d Time (Source) Location / / Volume Laterality Blood specimen 12/05/2019 4:18 AM 020 4:31 (specimen) EDT AM EDT Resulting Agency Comment Spec In Lab Gretchen Yoon MD CHEMISTRY ORDERABLES Performing Organization Address City/State/[place] [address] (ABNORMAL) Hemogram (12/05/2019 4:18 AM EDT) Analysis Performed At Patho logist Time Signature WBC 8.6 4.0 - 9.5 [facility] x10(3)/[facility] LABORATORY RBC 4.28 (L) 4.58 - MELINA DOV 5.54 [facility] x10(6)/[facility] LABORATORY Hemoglobin 12.4 (L) 13.7 - [facility] 16.5 gm/dL [facility] LABORATORY Hematocrit 37.3 (L) 40.5 - [facility] 48.5 % [facility] LABORATORY MCV 87.1 82.9 - [facility] 93.1 [facility] LABORATORY MCH 29.0 27.5 - M[place]INA DOV 32.1 pg [facility] LABORATORY MCHC 33.2 32.0 - [place] DOV 35.7 gm/dL [facility] LABORATORY Platelets 163 145 - 357 [facility] x10(3)/[facility] LABORATORY RDWSD 46.4 (H) 36.0 - [facility] DOV 45.0 [facility] LABORATORY RDWCV 14.4 (H) 11.4 - [facility] DOV 13.8 % [facility] LABORATORY MPV 11.7 7.6 - 12.9 [facility] LABORATORY nRBC % Auto 0.0 % [facility] LABORATORY nRBC Abs Auto 0.000 0.000 - MELINA DOV 0.000 [facility] x10(3)/[facility] LABORATORY Specimen Anatomical Collection Method Collection Time Receive d Time (Source) Location / / Volume Laterality Blood specimen 12/05/2019 4:18 AM 020 4:31 (specimen) EDT AM EDT Resulting Agency Comment Spec In Lab Gretchen Yoon MD HEMATOLOGY ORDERABLES Performing Organization Address City/State/[place] [address] Cardiac for Morphology [...] For questions regarding this report, please contact [facility] number below. ? Electronically signed by: Roselyn Luciano [facility] ([phone]), at 12/04/2019 6:16 PM Narrative 12/04/2019 6:16 PM EDT EXAMINATION: CT CARDIAC FOR MORPHOLOGY & FUNCTION CLINICAL HISTORY: Pt with AFib and intra cranial hemorrhage, evaluation for possible left atrial appendage closure TECHNIQUE: After timing bolus, 0.6 [facility] contiguous sections were obtained through the [...] from neck/greatest puja meter to back wall: NIGERIEN 91, CAU 13: ??19 mm CORTES ??1, [...] from neck/greatest puja meter to back wall: NIGERIEN 91, CAU 13: 19 mm CORTES 1, [...] Roselyn Luciano [facility] ([phone]), at 12/04/2019 6:16 PM Gretchen Yoon MD IMG CT ORDERABLES (ABNORMAL) Hemogram (12/04/2019 12:55 PM EDT) Analysis Performed At Patho logist Time Signature WBC 8.9 4.0 - 9.5 [facility] x10(3)/[facility] LABORATORY RBC 4.69 4.58 - [facility] 5.54 [facility] x10(6)/[facility] LABORATORY Hemoglobin 13.5 (L) 13.7 - [facility] 16.5 gm/dL [facility] LABORATORY Hematocrit 41.7 40.5 - [facility] 48.5 % [facility] LABORATORY MCV 88.9 82.9 - MELINA MONAE 93.1 [facility] LABORATORY MCH 28.8 27.5 - MELINA MONAE 32.1 pg [facility] LABORATORY MCHC 32.4 32.0 - MELINA MONAE 35.7 gm/dL [facility] Platelets 196 145 - 357 [facility] x10(3)/[facility] LABORATORY RDWSD 46.7 (H) 36.0 - MELINA MONAE 45.0 [facility] LABORATORY RDWCV 14.5 (H) 11.4 - M[place] DOV 13.8 % [facility] LABORATORY MPV 12.1 7.6 - 12.9 [facility] LABORATORY nRBC % Auto 0.0 % [facility] nRBC Abs Auto 0.000 0.000 - MELINA MONAE 0.000 [facility] x10(3)/[facility] LABORATORY Specimen Anatomical Collection Method Collection Time Receive d Time (Source) Location / / Volume Laterality Blood specimen 12/04/2019 12:55 0 1:06 (specimen) PM EDT PM EDT Resulting Agency Comment Spec In Lab Grethcen Yoon MD HEMATOLOGY ORDERABLES Performing Organization Address City/State/[place] [address] EKG 12 Lead (12/04/2019 10:43 AM EDT) Component Value Ref Range Test Analysis Performed Pathologis t Method Time At Signature Ventricular rate 158 BPM MUSE SYSTEM Atrial Rate 102 BPM MUSE SYSTEM QRS Duration 92 ms MUSE SYSTEM Q-T Interval 294 ms MUSE SYSTEM QTC Calculated 476 ms MUSE SYSTEM (Bezet) Calculated R [place] 17 degrees MUSE SYSTEM Calculated T [place] 90 degrees MUSE SYSTEM INTERPRETATION Atrial fibrillation with rapid ventricular response MUSE SYSTEM Possible Inferior infarct (cited on or before 29-NOV-2019) Abnormal ECG When compared with ECG of 30-NOV-2019 21:07, Atrial fibrillation has replaced Sinus rhythm Vent. rate has increased BY ??65 BPM Confirmed by MD Ceja Daniel ([id number]) on 12/05/2019 8:59:44 AM Specimen Anatomical Collection Method Collection Time Receive d Time (Source) Location / / Volume Laterality 12/04/2019 10:43 12/05/2019 8:59 AM EDT AM EDT Gretchen Yoon MD ECG ORDERABLES Performing Organization Address City/State/ZIP Code Phon e Number MUSE SYSTEM (ABNORMAL) Magnesium (12/04/2019 4:28 AM EDT) athologist Signature Magnesium 1.17 (H) 0.69 - 1.07 [facility] mmol/L [facility] LABORATORY Specimen Anatomical Collection Method Collection Time Receive d Time (Source) Location / / Volume Laterality Blood specimen 12/04/2019 4:28 AM 020 4:40 (specimen) EDT AM EDT Resulting Agency Comment Spec In Lab Gretchen Yoon MD CHEMISTRY ORDERABLES Performing Organization Address City/State/[place] [address] (ABNORMAL) BMP w/fasting Glucose (12/04/2019 4:28 AM EDT) P athologist Signature Glucose 108 (H) 65 - 99 [facility] Fasting mg/dL [facility] LABORATORY Comment: ?Fasting* Glucose Interpretive [...] of Diabetes Mellitus, Position Statement from the [place] [employer]. ??Diabete s Care, Volume 33, [...] of body mass or the acutely ill. http://[employer]/[facility] eGFR 98 >=60 mL/min/1.73 m?? [facility] LABORATORY Comment: The eGFR was calculated using the CKD-EP I equation. As with all creatinine based estimates of kidney function, eGFR values calculated with the CKD-EPI equation are not accurate in patients wi th acute kidney failure, extremes of body mass or the acutely ill. http://[employer]/[facility] Specimen Anatomical Collection Method Collection Time Receive d Time (Source) Location / / Volume Laterality Blood specimen 12/04/2019 4:28 AM 020 4:40 (specimen) EDT AM EDT Resulting Agency Comment Spec In Lab Gretchen Yoon MD CHEMISTRY ORDERABLES Performing Organization Address City/State/[place] [address] (ABNORMAL) Hemogram (12/04/2019 4:28 AM EDT) Analysis Performed At Patho logist Time Signature WBC 7.8 4.0 - 9.5 [facility] x10(3)/[facility] LABORATORY RBC 4.10 (L) 4.58 - [facility] 5.54 [facility] x10(6)/[facility] LABORATORY Hemoglobin 12.0 (L) 13.7 - MELINA WHITTENCOCK 16.5 gm/dL [facility] LABORATORY Hematocrit 36.5 (L) 40.5 - MELINA VILLANUEVACK 48.5 % [facility] LABORATORY MCV 89.0 82.9 - MELINA WHITTENCOCK 93.1 [facility] LABORATORY MCH 29.3 27.5 - MELINA WHITTENCOCK 32.1 pg [facility] LABORATORY MCHC 32.9 32.0 - MELINA WHITTENCOCK 35.7 gm/dL [facility] LABORATORY Platelets 151 145 - 357 [facility] x10(3)/[facility] LABORATORY RDWSD 46.9 (H) 36.0 - MELINA WHITTENCOCK 45.0 [facility] LABORATORY RDWCV 14.4 (H) 11.4 - MELINA DOV 13.8 % [facility] LABORATORY MPV 12.2 7.6 - 12.9 MELINA MARSHDOV [facility] LABORATORY nRBC % Auto 0.0 % [facility] LABORATORY nRBC Abs Auto 0.000 0.000 - MELINA VILLANUEVACK 0.000 [facility] x10(3)/[facility] LABORATORY Specimen Anatomical Collection Method Collection Time Receive d Time (Source) Location / / Volume Laterality Blood specimen 12/04/2019 4:28 AM 020 4:40 (specimen) EDT AM EDT Resulting Agency Comment Spec In Lab Gretchen Yoon MD HEMATOLOGY ORDERABLES Performing Organization Address City/State/[place] [address] Potassium (12/03/2019 7:55 PM EDT) athologist Signature Potassium 3.9 3.5 - 5.0 [facility] mmol/L [facility] LABORATORY Comment: Please note: ??Patients [...] Yoon MD CHEMISTRY ORDERABLES Performing Organization Address City/[facility]/[place] [address] Potassium (12/03/2019 1:57 PM EDT) P athologist Signature Potassium 3.7 3.5 - 5.0 [facility] DOV mmol/L [facility] LABORATORY Comment: Please note: ??Patients [...] Yoon MD CHEMISTRY ORDERABLES Performing Organization Address City/[facility]/[place] [address] (ABNORMAL) Hemogram (12/03/2019 1:57 PM EDT) Analysis Performed At Patho logist Time Signature WBC 8.8 4.0 - 9.5 MELINA DOV x10(3)/[facility] LABORATORY RBC 4.27 (L) 4.58 - MELINA DOV 5.54 [facility] x10(6)/[facility] LABORATORY Hemoglobin 12.5 (L) 13.7 - MELINA DOV 16.5 gm/dL [facility] LABORATORY Hematocrit 37.5 (L) 40.5 - MELINA DOV 48.5 % [facility] LABORATORY MCV 87.8 82.9 - MELINA DOV 93.1 [facility] LABORATORY MCH 29.3 27.5 - MELINA DOV 32.1 pg [facility] LABORATORY MCHC 33.3 32.0 - MELINA DOV 35.7 gm/dL [facility] LABORATORY Platelets 158 145 - 357 MELINA DOV x10(3)/[facility] LABORATORY RDWSD 46.9 (H) 36.0 - MELINA DOV 45.0 [facility] LABORATORY RDWCV 14.5 (H) 11.4 - MELINA DOV 13.8 % [facility] LABORATORY MPV 12.2 7.6 - 12.9 [facility] fL [facility] LABORATORY nRBC % Auto 0.0 % [facility] LABORATORY nRBC Abs Auto 0.000 0.000 - MELINA MONAE 0.000 [facility] x10(3)/[facility] LABORATORY Specimen Anatomical Collection Method Collection Time Receive d Time (Source) Location / / Volume Laterality Blood specimen 12/03/2019 1:57 PM 020 2:21 (specimen) EDT PM EDT Resulting Agency Comment Spec In Lab Gretchen Yoon MD HEMATOLOGY ORDERABLES Performing Organization Address City/State/ZIP Code Phon e Number [address] Magnesium (12/03/2019 4:02 AM EDT) P athologist Signature Magnesium 0.79 0.69 - 1.07 [facility] mmol/L [facility] LABORATORY Specimen Anatomical Collection Method Collection Time Receive d Time (Source) Location / / Volume Laterality Blood specimen 12/03/2019 4:02 AM 020 4:16 (specimen) EDT AM EDT Resulting Agency Comment Spec In Lab Gretchen Yoon MD CHEMISTRY ORDERABLES Performing Organization Address City/State/ZIP Code Phon e Number [address] (ABNORMAL) BMP w/fasting Glucose (12/03/2019 4:02 AM EDT) P athologist Signature Glucose 100 (H) 65 - 99 [facility] Fasting mg/dL [facility] LABORATORY Comment: ?Fasting* Glucose Interpretive [...] of Diabetes Mellitus, Position Statement from the [place] [employer]. ??Diabete s Care, Volume 33, [...] of body mass or the acutely ill. http://[employer]/[facility]VIEWnkf eGFR 92 >=60 mL/min/1.73 m?? [facility] LABORATORY Comment: The eGFR was calculated using the CKD-EP I equation. As with all creatinine based estimates of kidney function, eGFR values calculated with the CKD-EPI equation are not accurate in patients wi th acute kidney failure, extremes of body mass or the acutely ill. http://[employer]/[facility] Specimen Anatomical Collection Method Collection Time Receive d Time (Source) Location / / Volume Laterality Blood specimen 12/03/2019 4:02 AM 06/03/2 020 4:16 (specimen) EDT AM EDT Resulting Agency Comment Spec In Lab Gretchen Yoon MD CHEMISTRY ORDERABLES Performing Organization Address City/State/ZIP Code Phon e Number [address] (ABNORMAL) Hemogram (12/03/2019 4:02 AM EDT) Analysis Performed At Patho logist Time Signature WBC 9.1 4.0 - 9.5 MELINA DOV x10(3)/[facility] LABORATORY RBC 4.01 (L) 4.58 - MELINA DOV 5.54 [facility] x10(6)/[facility] LABORATORY Hemoglobin 11.8 (L) 13.7 - [facility] D[facility] 16.5 gm/dL [facility] LABORATORY Hematocrit 35.6 (L) 40.5 - MELINA DOV 48.5 % [facility] LABORATORY MCV 88.8 82.9 - [facility] D[facility] 93.1 [facility] LABORATORY MCH 29.4 27.5 - MELINA DOV 32.1 pg [facility] LABORATORY MCHC 33.1 32.0 - MELINA DOV 35.7 gm/dL [facility] LABORATORY Platelets 130 (L) 145 - 357 [facility] x[facility](3[facility] LABORATORY RDWSD 46.6 (H) 36.0 - MELINA DOV 45.0 [facility] LABORATORY RDWCV 14.4 (H) 11.4 - MELINA DOV 13.8 % [facility] LABORATORY MPV 12.4 7.6 - 12.9 [facility] DOV [facility] LABORATORY nRBC % Auto 0.0 % [facility] LABORATORY nRBC Abs Auto 0.000 0.000 - MELINA DOV 0.000 [facility] x10(3)/[facility] LABORATORY Specimen Anatomical Collection Method Collection Time Receive d Time (Source) Location / / Volume Laterality Blood specimen 12/03/2019 4:02 AM 020 4:16 (specimen) EDT AM EDT Resulting Agency Comment Spec In Lab Gretchen Yoon MD HEMATOLOGY ORDERABLES Performing Organization Address City/State/[place] [address] XR Chest One View [...] Signature WBC 10.6 (H) 4.0 - 9.5 [facility] x10(3)/[facility] LABORATORY RBC 4.00 (L) 4.58 - MELINA DOV 5.54 [facility] x10(6)/[facility] LABORATORY Hemoglobin 11.9 (L) 13.7 - [facility] D[facility] 16.5 gm/dL [facility] LABORATORY Hematocrit 35.7 (L) 40.5 - MELINA DOV 48.5 % [facility] LABORATORY MCV 89.3 82.9 - MELINA DOV 93.1 [facility] LABORATORY MCH 29.8 27.5 - MELINA DOV 32.1 pg [facility] LABORATORY MCHC 33.3 32.0 - MELINA DOV 35.7 gm/dL [facility] LABORATORY Platelets 120 (L) 145 - 357 [facility] x10(3)/[facility] LABORATORY RDWSD 47.5 (H) 36.0 - MELINA DOV 45.0 [facility] LABORATORY RDWCV 14.6 (H) 11.4 - MELINA DOV 13.8 % [facility] LABORATORY MPV 12.0 7.6 - 12.9 [facility] DOV [facility] LABORATORY nRBC % Auto 0.0 % [facility] LABORATORY nRBC Abs Auto 0.000 0.000 - MELINA DOV 0.000 [facility] x10(3)/[facility] LABORATORY Specimen Anatomical Collection Method Collection Time Receive d Time (Source) Location / / Volume Laterality Blood specimen 12/02/2019 12:50 0 1:22 (specimen) PM EDT PM EDT Resulting Agency Comment Spec In Lab Gretchen Yoon MD HEMATOLOGY ORDERABLES Performing Organization Address City/State/ZIP Code Phon e Number [address] Blue Tube HOLD (12/02/2019 4:55 AM EDT) P athologist Signature Blue Hold Sample in [facility] lab. [facility] LABORATORY Specimen Anatomical Collection Method Collection Time Receive d Time (Source) Location / / Volume Laterality Blood specimen Venous Draw / 12/02/2019 4:55 AM 2019 5:03 (specimen) Unknown EDT AM EDT Darrell Glasgow MD HEMATOLOGY ORDERABLES Performing Organization Address City/[facility]/ZIP Code Phon e Number [address] Magnesium (12/02/2019 4:55 AM EDT) athologist Signature Magnesium 0.85 0.69 - 1.07 [facility] mmol/L [facility] LABORATORY Specimen Anatomical Collection Method Collection Time Receive d Time (Source) Location / / Volume Laterality Blood specimen 12/02/2019 4:55 AM 020 5:02 (specimen) EDT AM EDT Resulting Agency Comment Spec In Lab Gretchen Yoon MD CHEMISTRY ORDERABLES Performing Organization Address City/[facility]/ZIP Code Phon e Number [address] (ABNORMAL) BMP w/fasting Glucose (12/02/2019 4:55 AM EDT) P athologist Signature Glucose 114 (H) 65 - 99 [facility] Fasting mg/dL [facility] LABORATORY Comment: ?Fasting* Glucose Interpretive [...] of Diabetes Mellitus, Position Statement from the [place] [employer]. ??Diabete s Care, Volume 33, [...] of body mass or the acutely ill. http://[employer]/[facility]VIEWnk[facility] eGFR 94 >=60 mL/min/1.73 m?? [facility] LABORATORY Comment: The eGFR was calculated using the CKD-EP I equation. As with all creatinine based estimates of kidney function, eGFR values calculated with the CKD-EPI equation are not accurate in patients wi th acute kidney failure, extremes of body mass or the acutely ill. http://[employer]/[facility]nkf Specimen Anatomical Collection Method Collection Time Receive d Time (Source) Location / / Volume Laterality Blood specimen 12/02/2019 4:55 AM 020 5:02 (specimen) EDT AM EDT Resulting Agency Comment Spec In Lab Gretchen Yoon MD CHEMISTRY ORDERABLES Performing Organization Address City/State/ZIP Code Phon e Number [address] (ABNORMAL) Hemogram (12/02/2019 4:55 AM EDT) Analysis Performed At Patho logist Time Signature WBC 9.3 4.0 - 9.5 MELINA DOV x10(3)/[facility] LABORATORY RBC 3.71 (L) 4.58 - MELINA DOV 5.54 [facility] x10(6)/[facility] LABORATORY Hemoglobin 10.8 (L) 13.7 - MELINA DOV 16.5 gm/dL [facility] LABORATORY Hematocrit 33.1 (L) 40.5 - MELINA DOV 48.5 % [facility] LABORATORY MCV 89.2 82.9 - [facility] D[facility] 93.1 [facility] LABORATORY MCH 29.1 27.5 - MELINA DOV 32.1 pg [facility] LABORATORY MCHC 32.6 32.0 - MELINA DOV 35.7 gm/dL [facility] LABORATORY Platelets 93 (L) 145 - 357 [facility] x10(3)/[facility] LABORATORY RDWSD 47.1 (H) 36.0 - [facility] D[facility] 45.0 [facility] LABORATORY RDWCV 14.6 (H) 11.4 - MELINA DOV 13.8 % [facility] LABORATORY MPV 11.7 7.6 - 12.9 [facility] DOV [facility] LABORATORY nRBC % Auto 0.0 % [facility] LABORATORY nRBC Abs Auto 0.000 0.000 - MELINA DOV 0.000 [facility] x10(3)/[facility] LABORATORY Specimen Anatomical Collection Method Collection Time Receive d Time (Source) Location / / Volume Laterality Blood specimen 12/02/2019 4:55 AM 020 5:02 (specimen) EDT AM EDT Resulting Agency Comment Spec In Lab Gretchen Yoon MD HEMATOLOGY ORDERABLES Performing Organization Address City/State/ZIP Code Phon e Number [address] Transfuse 1 unit platelets, [...] For questions regarding this report, please contact [facility] number below. ? Electronically signed by: Angel Luis Barboza MD, [facility] ([phone]), at 12/01/2019 8:02 PM Narrative 12/01/2019 8:02 [...] 6:20 PM EDT) athologist Signature Dispensed? Yes [facility] LABORATORY Specimen Anatomical Collection Method Collection Time Receive d Time (Source) Location / / Volume Laterality Blood specimen 12/01/2019 6:20 PM 020 6:18 (specimen) EDT PM EDT Gretchen Yoon MD BLOOD BANK ORDERABLES Performing Organization Address City/State/[place] [address] Duplex for DVT, Arm, Unilat (12/01/2019 5:08 PM EDT) Component Value Ref Test Analysis Performed At [facility] Range Method Time Signature VB Text Department: Vascular Surgery Lab VASCUBASE Report Patient: [id number] (ANGEL LUIS SALINAS) CPT: 78972 ICD10: R60.0 Referring Physician: GRETCHEN YOON ?? [...] Merari Collins [facility] ([phone]), at 12/01/2019 3:53 PM Narrative 12/01/2019 3:53 PM EDT EXAMINATION: CT HEAD WO CONTRAST (GENERIC) CLINICAL HISTORY: Headache, intracranial hemorrhage suspected Serial CT scan: please assess for propag ation of known ICH noted on prior Head CT/imaging. TECHNIQUE: CT head performed without intravenous co ntrast administration. COMPARISON: Head CT 11/30/2019. CT angiogram of [place] 11/01. FINDINGS: Ventricles are normal [...] Head CT 11/30/2019. CT angiogram of [place] 11/01. FINDINGS: Ventricles are normal [...] Scan, Peripheral Blood (12/01/2019 12:51 PM EDT) [facility] Method Time Signature Plat Estimate Decreased [facility] LABORATORY RBC Morphology Normal [facility] LABORATORY Giant Less than 1 /HPF [facility] LABORATORY Specimen Anatomical Collection Method Collection Time Receive d Time (Source) Location / / Volume Laterality Blood specimen 12/01/2019 12:51 0 1:05 (specimen) PM EDT PM EDT Resulting Agency Comment Spec In Lab Riki Stevens MD HEMATOLOGY ORDERABLES Performing Organization Address City/State/[place] [address] (ABNORMAL) Differential, Automated (12/01/2019 12:51 PM EDT) [facility] Method Time Signature Neutrophils % 74.9 % [facility] LABORATORY Neutr Abs (ANC) 6.34 (H) 1.70 - [facility] 6.10 [facility] x10(3)/[facility] L LABORATORY Lymphocytes % 11.4 % [facility] LABORATORY Lymphocytes Abs 1.0 0.9 - 3.2 [facility] x10(3)/[facility] LABORATORY Monocytes % 12.4 % [facility] LABORATORY Monocyte Abs 1.0 (H) 0.3 - 0.9 [facility] x10(3)/[facility] LABORATORY Eosinophils % 0.4 % [facility] LABORATORY Eosinophils Abs 0.0 0.0 - 0.4 [facility] x10(3)/[facility] LABORATORY Basophils % 0.4 % [facility] LABORATORY Basophils Abs 0.0 0.0 - 0.1 [facility] x10(3)/[facility] LABORATORY Immature Gran % 0.50 [...] Pita Gran Abs 0.04 0.00 - 0.04 x10(3)/[facility] LABORATORY Specimen Anatomical Collection Method Collection Time Receive d Time (Source) Location / / Volume Laterality Blood specimen 12/01/2019 12:51 0 1:05 (specimen) PM EDT PM EDT Resulting Agency Comment Spec In Lab Riki Stevens MD HEMATOLOGY ORDERABLES Performing Organization Address City/State/[place] [address] (ABNORMAL) Hemogram (12/01/2019 12:51 PM EDT) Analysis Performed At Patho logist Time Signature WBC 8.4 4.0 - 9.5 [facility] x10(3)/[facility] LABORATORY RBC 3.69 (L) 4.58 - [facility] 5.54 [facility] x10(6)/[facility] LABORATORY Hemoglobin 10.8 (L) 13.7 - [facility] 16.5 gm/dL [facility] LABORATORY Hematocrit 32.4 (L) 40.5 - [facility] 48.5 % [facility] LABORATORY MCV 87.8 82.9 - [facility] 93.1 fL [facility] LABORATORY MCH 29.3 27.5 - [facility] 32.1 pg [facility] LABORATORY MCHC 33.3 32.0 - [facility] 35.7 gm/dL [facility] LABORATORY Platelets 72 (L) 145 - 357 [facility] x10(3)/[facility] LABORATORY RDWSD 47.2 (H) 36.0 - [facility] 45.0 [facility] LABORATORY RDWCV 14.6 (H) 11.4 - [facility] 13.8 % [facility] LABORATORY MPV 12.2 7.6 - 12.9 [facility] LABORATORY nRBC % Auto 0.0 % [facility] LABORATORY nRBC Abs Auto 0.000 0.000 - [facility] 0.000 [facility] x10(3)/[facility] LABORATORY Specimen Anatomical Collection Method Collection Time Receive d Time (Source) Location / / Volume Laterality Blood specimen 12/01/2019 12:51 0 1:05 (specimen) PM EDT PM EDT Resulting Agency Comment Spec In Lab Riki Stevens MD HEMATOLOGY ORDERABLES Performing Organization Address City/[facility]/ZIP Code Phon e Number [address] (ABNORMAL) Coox2 (12/01/2019 11:42 AM EDT) Analysis Performed At Patho logist Time Signature pO2 Coox 30 mmHg [facility] LABORATORY Hgb Blood Gas 11.6 (L) 13.7 - [facility] 16.5 gm/dL [facility] LABORATORY O2HB Coox 60.8 % [facility] LABORATORY COHB Coox 0.6 % [facility] LABORATORY Comment: Nonsmokers: 0.5-1.5% COHB Smokers: Variable, but usually less than 10% Toxic: 20-30% COHB Lethal: Greater than 60% COHB METHB Coox 0.6 <=1.5 % [facility] LABORATORY Source Coox Mixed Venous [facility] LABORATORY Specimen Anatomical Collection Method Collection Time Receive d Time (Source) Location / / Volume Laterality Blood specimen 12/01/2019 11:42 0 (specimen) AM EDT 11:42 AM EDT Gretchen Yoon MD CHEMISTRY ORDERABLES Performing Organization Address City/State/[place] [address] Sedimentation rate (12/01/2019 3:55 AM EDT) P athologist Signature Sed Rate 25 3 - 46 [facility] mm/hr [facility] LABORATORY Comment: Effective June 11, [...] Winn MD HEMATOLOGY ORDERABLES Performing Organization Address City/[facility]/ZIP Code Phon e Number [address] (ABNORMAL) CRP, acute inflammation [...] Winn MD CHEMISTRY ORDERABLES Performing Organization Address City/[facility]/ZIP Code Phon e Number [address] ABORH Recheck Status (12/01/2019 3:55 AM EDT) [facility] Method Time Signature ABORH Recheck Order Placed [facility] LABORATORY ABORH Type Complete [facility] LABORATORY Specimen Anatomical Collection Method Collection Time Receive d Time (Source) Location / / Volume Laterality Blood specimen 12/01/2019 3:55 AM 020 4:15 (specimen) EDT AM EDT Resulting Agency Comment Spec In Lab Lewis Gee MD BLOOD BANK ORDERABLES Performing Organization Address City/[facility]/[place] [address] Antibody screen (12/01/2019 3:55 AM EDT) Patholo gist Method Time Signature Ab Screen Negative [facility] LABORATORY Expires at 12/04/2019 MELINA MARSHDOV [id number] on: [facility] LABORATORY Specimen Anatomical Collection Method Collection Time Receive d Time (Source) Location / / Volume Laterality Blood specimen 12/01/2019 3:55 AM 020 4:15 (specimen) EDT AM EDT Resulting Agency Comment Spec In Lab Lewis Gee MD BLOOD BANK ORDERABLES Performing Organization Address [facility] [place] [address] ABO/Rh Typing (12/01/2019 3:55 AM EDT) athologist Signature ABORh Type AB Pos [facility] LABORATORY Specimen Anatomical Collection Method Collection Time Receive d Time (Source) Location / / Volume Laterality Blood specimen 12/01/2019 3:55 AM 020 4:15 (specimen) EDT AM EDT Resulting Agency Comment Spec In Lab Lewis Gee MD BLOOD BANK ORDERABLES Performing Organization Address [facility] [place] [address] (ABNORMAL) Troponin (12/01/2019 3:55 AM EDT) athologist [facility] Troponin-T 4.35 (H) 0.00 - [facility] 0.00 ng/mL [facility] LABORATORY Comment: result rechecked-slw The [...] additional sample may be indicated. Reference: Third Lowgap Definition of Myocardial Infarction. Journal of the [place] [employer] 2012;60:1581-98 Specimen Anatomical Collection Method Collection Time Receive d Time (Source) Location / / Volume Laterality Blood specimen 12/01/2019 3:55 AM 020 4:00 (specimen) EDT AM EDT Resulting Agency Comment Spec In Lab Gretchen Yoon MD CHEMISTRY ORDERABLES Performing Organization Address City/State/ZIP Code Phon e Number [address] Magnesium (12/01/2019 3:55 AM EDT) athologist Signature Magnesium 0.96 0.69 - 1.07 [facility] mmol/L [facility] LABORATORY Specimen Anatomical Collection Method Collection Time Receive d Time (Source) Location / / Volume Laterality Blood specimen 12/01/2019 3:55 AM 020 4:00 (specimen) EDT AM EDT Resulting Agency Comment Spec In Lab Gretchen Yoon MD CHEMISTRY ORDERABLES Performing Organization Address City/State/[place] [address] (ABNORMAL) BMP w/fasting Glucose (12/01/2019 3:55 AM EDT) P athologist Signature Glucose 148 (H) 65 - 99 [facility] Fasting mg/dL [facility] LABORATORY Comment: ?Fasting* Glucose Interpretive [...] of Diabetes Mellitus, Position Statement from the [place] [employer]. ??Diabete s Care, Volume 33, [...] of body mass or the acutely ill. http://[employer]/[facility]nk[facility] eGFR 91 >=60 mL/min/1.73 m?? [facility] LABORATORY Comment: The eGFR was calculated using the CKD-EP I equation. As with all creatinine based estimates of kidney function, eGFR values calculated with the CKD-EPI equation are not accurate in patients wi th acute kidney failure, extremes of body mass or the acutely ill. http://[employer]/[facility] Specimen Anatomical Collection Method Collection Time Receive d Time (Source) Location / / Volume Laterality Blood specimen 12/01/2019 3:55 AM 020 4:00 (specimen) EDT AM EDT Resulting Agency Comment Spec In Lab Gretchen Yoon MD CHEMISTRY ORDERABLES Performing Organization Address City/State/[place] [address] (ABNORMAL) Hemogram (12/01/2019 3:55 AM EDT) Analysis Performed At Patho logist Time Signature WBC 11.0 (H) 4.0 - 9.5 [facility] x10(3[facility] LABORATORY RBC 3.46 (L) 4.58 - [facility] DOV 5.54 [facility] x10(6)/[facility] LABORATORY Hemoglobin 10.2 (L) 13.7 - [facility] 16.5 gm/dL [facility] LABORAT[facility] Hematocrit 31.2 (L) 40.5 - [facility] 48.5 % [facility] MCV 90.2 82.9 - [facility] 93.1 [facility] LABORATORY MCH 29.5 27.5 - [place] D[place] 32.1 pg [facility] LABORATORY MCHC 32.7 32.0 - [place] D[place] 35.7 gm/dL [facility] LABORATORY Platelets 98 (L) 145 - 357 [facility] x10(3)/[facility] LABORATORY RDWSD 47.9 (H) 36.0 - [facility] DOV 45.0 [facility] LABORATORY RDWCV 14.6 (H) 11.4 - [facility] DOV 13.8 % [facility] LABORATORY MPV 12.3 7.6 - 12.9 [facility] nRBC % Auto 0.0 % [facility] LABORATORY nRBC Abs Auto 0.000 0.000 - [place] DOV 0.000 [facility] x10(3)/[facility] LABORATORY Specimen Anatomical Collection Method Collection Time Receive d Time (Source) Location / / Volume Laterality Blood specimen 12/01/2019 3:55 AM 020 4:00 (specimen) EDT AM EDT Resulting Agency Comment Spec In Lab Gretchen Yoon MD HEMATOLOGY ORDERABLES Performing Organization Address City/State/ZIP [place] [address] (ABNORMAL) BLOOD GAS 2 ARTERIAL (11/30/2019 10:39 PM EDT) Analysis Performed At Patho logist Time Signature pH Art 7.45 7.35 - [facility] 7.45 [facility] LABORATORY pCO2 Art 23 (L) 35 - 45 [facility] mmHg [facility] LABORATORY pO2 Art 76 (L) 85 - 104 [facility] mmHg [facility] LABORATORY HCO3 Art 15.3 (L) 20.0 - [facility] 26.0 [facility] mmol/L [facility] LABORATORY BE Art -8.7 (L) -3.0 - 3.0 [facility] mmol/L [facility] LABORATORY Hgb Blood Gas 11.7 (L) 13.7 - [facility] 16.5 gm/dL [facility] LABORATORY O2HB Art 94.2 94.0 - [facility] 97.0 % [facility] LABORAT[facility] COHB Art 0.5 % [facility] LABORATORY Comment: Nonsmokers: 0.5-1.5% COHB Smokers: Variable, but usually less than 10% Toxic: 20-30% COHB Lethal: Greater than 60% COHB METHB Art 0.6 <=1.5 % [facility] LABORATORY Na Whole Blood 133 (L) 135 - 145 mmol/L [facility] LABORATORY K Whole Blood 3.8 3.5 - 5.0 mmol/L [facility] LABORATORY Comment: Please note: Patients [...] Blood 109 (H) 98 - 107 mmol/L [facility] LABORATORY Gluc Whole Bld 120 65 - 199 mg/dL [facility] LABORATORY Comment: Diabetes: >=200 mg/dL plus symp toms. Lactate WB 0.8 0.5 - 2.2 mmol/L [facility] LABORATORY FIO2 Art 100 % [facility] LABORAT[facility] PF Ratio Art 76 [facility] LABORATORY Specimen Anatomical Collection Method Collection Time Receive d Time (Source) Location / / Volume Laterality Blood specimen 11/30/2019 10:39 0 (specimen) PM EDT 10:39 PM EDT Gretchen Yoon MD CHEMISTRY ORDERABLES Performing Organization Address City/[facility]/[place] [address] EKG 12 Lead (11/30/2019 [...] (Bezet) Calculated P 12 degrees MUSE SYSTEM [place] Calculated R 19 degrees MUSE SYSTEM [place] Calculated T -47 degrees MUSE SYSTEM [place] INTERPRETATION Sinus rhythm with Premature supraventricular complexes [...] Yoon MD ECG ORDERABLES Performing Organization Address City/[facility]/ZIP Code Phon e Number MUSE SYSTEM (ABNORMAL) Urinalysis Microscopic Exam (11/30/2019 8:40 PM EDT) P athologist Signature RBC UA 27 (H) 0 - 3 /HPF [facility] LABORATORY WBC UA 4 (H) 0 - 3 /HPF [facility] LABORATORY Hyaline Cast 3 (H) 0 - 2 /LPF [facility] LABORATORY Specimen (Source) Anatomical Collection Method Collection Time Re ceived Time Location / / Volume Laterality Urine specimen 11/30/2019 8:40 11/30/2019 obtained via PM EDT 10:51 PM EDT indwelling urinary catheter (specimen) Resulting Agency Comment Spec In Lab Rossy Winn MD URINE ORDERABLES Performing Organization Address City/State/ZIP Code Phon e Number [address] (ABNORMAL) Urinalysis with reflex Culture (11/30/2019 8:40 PM EDT) Patholo gist Method Time Signature Glucose UA Negative Negative [facility] mg/dL [facility] Protein UA Negative Negative [facility] mg/dL [facility] Bilirubin UA Negative Negative [facility] mg/dL [facility] Comment: Clinical correlation required for positi ve Urine Bilirubin results as false positive may occur with some drugs and d rug related products. If a false positive is suspected a serum total bili morales should be considered if clinically indicated. Urobilinogen UA Normal Normal mg/dL [facility] LABORATORY pH UA 5.5 5.0 - 8.0 [facility] LABORATORY Blood UA Moderate (A) Negative mg/dL [facility] LABORAT[facility] Ketones UA 40 (A) Negative mg/dL [facility] LABORATORY Nitrite UA Negative Negative [facility] LABORATORY Leukocytes UA Trace (A) Negative [facility] LABORATORY Appearance UA Clear Clear [facility] LABORATORY Spec [place] UA 1.026 1.006 - 1.030 [facility] LABORATORY Color UA Yellow Yellow [facility] LABORATORY Culture Reflexed No [facility] LABORATORY Specimen (Source) Anatomical Collection Method Collection Time Re ceived Time Location / / Volume Laterality Urine specimen 11/30/2019 8:40 11/30/2019 obtained via PM EDT 10:51 PM EDT indwelling urinary catheter (specimen) Resulting Agency Comment Spec In Lab Gretchen Yoon MD URINE ORDERABLES Performing Organization Address City/[facility]/ZIP Code Phon e Number [address] (ABNORMAL) pro-Brain Natriuretic Peptide (11/30/2019 8:30 PM EDT) P athologist Signature ProBNP 2,802 (H) <=125 [place] pg/mL [facility] LABORATORY Specimen Anatomical Collection Method Collection Time Receive d Time (Source) Location / / Volume Laterality Blood specimen Venous Draw / 11/30/2019 8:30 PM 2019 8:36 (specimen) Unknown EDT PM EDT Resulting Agency Comment Spec In Lab Rossy Winn MD CHEMISTRY ORDERABLES Performing Organization Address City/[facility]/[place] [address] (ABNORMAL) Troponin (11/30/2019 8:30 PM EDT) athologist Signature Troponin-T 5.04 (H) 0.00 - [place] MONAE 0.00 ng/mL [facility]OR[facility] Comment: The 99th percentile [...] additional sample may be indicated. Reference: Third Lowgap Definition of Myocardial Infarction. Journal of the [place] [employer] 2012;60:1581-98 Specimen Anatomical Collection Method Collection Time Receive d Time (Source) Location / / Volume Laterality Blood specimen Venous Draw / 11/30/2019 8:30 PM 2019 8:36 (specimen) Unknown EDT PM EDT Resulting Agency Comment Spec In Lab Rossy Winn MD CHEMISTRY ORDERABLES Performing Organization Address City/[facility]/[place] [address] [facility] [address] Magnesium (11/30/2019 8:30 PM EDT) athologist Signature Magnesium 0.79 0.69 - 1.07 [facility] mmol/L [facility] LABORATORY Specimen Anatomical Collection Method Collection Time Receive d Time (Source) Location / / Volume Laterality Blood specimen 11/30/2019 8:30 PM 020 8:35 (specimen) EDT PM EDT Resulting Agency Comment Spec In Lab Gretchen Yoon MD CHEMISTRY ORDERABLES Performing Organization Address City/State/ZIP Code Phon e Number [place] [phone] [facility] LAB[address]ORY Drive (ABNORMAL) Basic Metabolic Panel (non-fasting) (11/30/2019 8:30 PM EDT) athologist Signature Glucose Lvl 132 65 - 199 [facility] mg/dL [facility] LAB[facility] Comment: Diabetes: >=200 mg/dL [...] of body mass or the acutely ill. http://[employer]/[facility]VIEWnkf eGFR 93 >=60 mL/min/1.73 m?? [facility] LABORATORY Comment: The eGFR was calculated using the CKD-EP I equation. As with all creatinine based estimates of kidney function, eGFR values calculated with the CKD-EPI equation are not accurate in patients wi th acute kidney failure, extremes of body mass or the acutely ill. http://[employer]/[facility]nkf Specimen Anatomical Collection Method Collection Time Receive d Time (Source) Location / / Volume Laterality Blood specimen 11/30/2019 8:30 PM 020 8:35 (specimen) EDT PM EDT Resulting Agency Comment Spec In Lab Gretchen Yoon MD CHEMISTRY ORDERABLES Performing Organization Address [facility] Phon e Number [address] Blood culture (11/30/2019 8:30 PM EDT) Patholo gist Method Time Signature Blood Culture No growth [place] at 5 days. [facility] Specimen Anatomical Collection Method Collection Time Receive d Time (Source) Location / / Volume Laterality Blood specimen 11/30/2019 8:30 PM 020 9:40 (specimen) EDT PM EDT Comment: L HAND Resulting Agency Comment Spec In Lab Gretchen Yoon MD MICROBIOLOGY - BLOOD ORDERAB LES Performing Organization Address [facility] Phon e Number [address] Blood culture (11/30/2019 8:30 PM EDT) Patholo gist Method Time Signature Blood Culture No growth [place] MARSHDOV at 5 days. [facility] Specimen Anatomical Collection Method Collection Time Receive d Time (Source) Location / / Volume Laterality Blood specimen 11/30/2019 8:30 PM 020 9:40 (specimen) EDT PM EDT Comment: R HAND Resulting Agency Comment Spec In Lab Gretchen Yoon MD MICROBIOLOGY - BLOOD ORDERAB LES Performing Organization Address City/State/ZIP Code Phon e Number [place] [phone]OSP[address] LAB[address]ORY Drive XR Chest One View [...] Time Signature pH Art 7.45 7.35 - [facility] 7.45 [facility] LABORATORY pCO2 Art 27 (L) 35 - 45 [facility] mmHg [facility]OR[facility] pO2 Art 68 (L) 85 - 104 [facility] mmHg [facility] LABORATORY HCO3 Art 18.2 (L) 20.0 - [facility] 26.0 [facility] mmol/L [facility] LABORATORY BE Art -5.9 (L) -3.0 - 3.0 [facility] mmol/L [facility] LABORATORY Hgb Blood Gas 12.4 (L) 13.7 - [facility] 16.5 gm/dL [facility] LABORATORY O2HB Art 93.1 (L) 94.0 - [facility] 97.0 % [facility] COHB Art 0.8 % [facility] LABORATORY Comment: Nonsmokers: 0.5-1.5% COHB Smokers: Variable, but usually less than 10% Toxic: 20-30% COHB Lethal: Greater than 60% COHB METHB Art 0.4 <=1.5 % [facility] LABORATORY Na Whole Blood 133 (L) 135 - 145 mmol/L [facility] LABORAT[facility] K Whole Blood 3.6 3.5 - 5.0 mmol/L [facility] LABORATORY Comment: Please note: Patients [...] Blood 108 (H) 98 - 107 mmol/L [facility] LABORATORY Gluc Whole Bld 121 65 - 199 mg/dL [facility] LABORATORY Comment: Diabetes: >=200 mg/dL plus symp toms. Lactate WB 1.2 0.5 - 2.2 mmol/L [facility] LABORATORY Flow Art 5.0 LPM [facility] LABORATORY Specimen Anatomical Collection Method Collection Time Receive d Time (Source) Location / / Volume Laterality Blood specimen 11/30/2019 8:09 PM 020 8:09 (specimen) EDT PM EDT Gretchen Yoon MD CHEMISTRY ORDERABLES Performing Organization Address City/State/[place] [address] Angiogram [place] (11/30/2019 4:36 PM EDT) Anatomical [...] CT HEAD WO CONTRAST (GENERIC), CT ANGIOGRAM [place] CLINICAL HISTORY: Headache, intracranial hemorrhage suspected F/U on known ICH - assessing for propaga tion TECHNIQUE: CT head performed without intravenous co ntrast administration. CT angiogram [place] 65 cc Omnipaque 350 administered [...] HEAD WO CONTRAST (GENERI C), CT ANGIOGRAM [place] CLINICAL HISTORY: Headache, intracranial hemorrhage suspected F/U on known ICH - assessing for propaga tion TECHNIQUE: CT head performed without intravenous co ntrast administration. CT angiogram [place] 65 cc Omnipaque 350 administered [...] Barboza MD, [facility] ([phone]), at 11/30/2019 5:04 PM Narrative 11/30/2019 5:04 PM EDT EXAMINATION: CT HEAD WO CONTRAST (GENERIC), CT ANGIOGRAM [place] CLINICAL HISTORY: Headache, intracranial hemorrhage suspected F/U on known ICH - assessing for propaga tion TECHNIQUE: CT head performed without intravenous co ntrast administration. CT angiogram [place] 65 cc Omnipaque 350 administered [...] HEAD WO CONTRAST (GENERI C), CT ANGIOGRAM [place] CLINICAL HISTORY: Headache, intracranial hemorrhage suspected F/U on known ICH - assessing for propaga tion TECHNIQUE: CT head performed without intravenous co ntrast administration. CT angiogram [place] 65 cc Omnipaque 350 administered [...] Barboza MD, [facility] ([phone]), at 11/30/2019 5:04 PM Gretchen Yoon MD [...] 453 ms MUSE SYSTEM (Bezet) Calculated P [place] 52 degrees MUSE SYSTEM Calculated R [place] 5 degrees MUSE SYSTEM Calculated T [place] -60 degrees MUSE SYSTEM INTERPRETATION Sinus rhythm [...] H ? (Age): 1945(74y) Med Rec#: ? [id number] ?Sex: ?M ? Site Loc: ? [facility] ?Ht / Wt: ??178(cm)/64(kg) Pt. Loc: ?CCU ? BSA: ?1.8 Study Date: ?? 11/30/2019 ?Pt. Type: Inpatient Tape: ? Referring: LAHEYMICHAELJ Reading: Tello Mejia ([id number]) Airport Screener: Eve Lolita Diagnosis: *ST elevation (STEMI) myocardial [...] Vmax ?0.58 ? m/sec ? MV deceleration dvwy354.05 ? m sec ? MV A-wave Vmax [...] ? Mid-Inferior ?Akinetic ? Mid-Inferoseptal ?Normal ? [place]-Septal ? Normal ? [place]-Anterior ? Normal ? [place]-Lateral ?Normal ? [place]-Inferior ? Hypokinetic ? [place]-Tip ?Normal ? This report has been electronically sign ed by: _ Tello Mejia MD ? 11/30/2019 12: 45:27 Images reviewed and interpretation [facility] Procedure Note Tello Mejia MD - 11/30/2019Formatti ng of this note might be different from the original. Procedure: Transthoracic Echocardiogram Patient: RITA Corcoran DOB(Age): [birth year](74y) Med Rec#: [id number] Sex: M Site Loc: [facility] Ht / Wt: 178(cm)/64(kg) Pt. Loc: CCU BSA: 1.8 Study Date: 11/30/2019 Pt. Type: Inpatie nt Tape: Referring: GILMER Reading: Tello Mejia ([id number]) Airport Screener: Eve Lolita Diagnosis: *ST elevation (STEMI) myocardial [...] MV E-wave Vmax 0.58 m/sec MV deceleration snys409.05 msec MV A-wave Vmax 0.74 m/sec MV [...] Hypokinetic Mid-Posterolateral Hypokinetic Mid-Inferior Akinetic Mid-Inferoseptal Normal [place]-Septal Normal [place]-Anterior Normal [place]-Lateral Normal [place]-Inferior Hypokinetic [place]-Tip Normal This report has been electronically sign ed by: _ Tello Mejia MD 11/30/2019 12:45:27 Images reviewed and interpretation verif ied [facility] Cardiac Ultrasound Laboratory Gretchen Yoon MD [...] For questions regarding this report, please contact [facility] number below. ? Electronically signed by: Angel Luis Barboza MD, [facility] ([phone]), at 11/30/2019 12:04 PM Narrative 11/30/2019 12:04 [...] normal in size.. Procedure Note Angel Luis oL MD - 11/30/2019Formatt ing of this note [...] athologist Signature Magnesium 0.88 0.69 - 1.07 [facility] mmol/L [facility] LABORATORY Specimen Anatomical Collection Method Collection Time Receive d Time (Source) Location / / Volume Laterality Blood specimen Venous Draw / 11/30/2019 8:30 AM 2019 8:37 (specimen) Unknown EDT AM EDT Resulting Agency Comment Spec In Lab Rossy Winn MD CHEMISTRY ORDERABLES Performing Organization Address City/[facility]/[place] [address] (ABNORMAL) CK (11/30/2019 8:30 AM EDT) athologist Signature CK, Total 1,645 (H) 0 - 200 [facility] unit/[facility] LABORATORY Specimen Anatomical Collection Method Collection Time Receive d Time (Source) Location / / Volume Laterality Blood specimen 11/30/2019 8:30 AM 020 8:32 (specimen) EDT AM EDT Resulting Agency Comment Spec In Lab Gretchen Yoon MD CHEMISTRY ORDERABLES Performing Organization Address City/[facility]/[place] [address] (ABNORMAL) Troponin (11/30/2019 8:30 AM EDT) P athologist Signature Troponin-T 8.04 (H) 0.00 - [place] MONAE 0.00 ng/mL [facility] LABORATORY Comment: result rechecked-rancho The [...] additional sample may be indicated. Reference: Third Lowgap Definition of Myocardial Infarction. Journal of the [place] [employer] 2012;60:1581-98 Specimen Anatomical Collection Method Collection Time Receive d Time (Source) Location / / Volume Laterality Blood specimen 11/30/2019 8:30 AM 020 8:32 (specimen) EDT AM EDT Resulting Agency Comment Spec In Lab Gretchen Yoon MD CHEMISTRY ORDERABLES Performing Organization Address City/State/ZIP Code [place] [address] EKG 12 Lead (11/30/2019 7:57 AM EDT) Component Value Ref Range Test Analysis Performed Pathologis t Method Time At Signature Ventricular rate 64 BPM MUSE SYSTEM Atrial Rate 64 BPM MUSE SYSTEM P-R Interval 132 ms MUSE SYSTEM QRS Duration 78 ms MUSE SYSTEM Q-T Interval 420 ms MUSE SYSTEM QTC Calculated 433 ms MUSE SYSTEM (Bezet) Calculated P [place] 28 degrees MUSE SYSTEM Calculated R [place] 7 degrees MUSE SYSTEM Calculated T [place] -33 degrees MUSE SYSTEM INTERPRETATION Sinus rhythm [...] Signature Glucose 147 (H) 65 - 99 [facility] Fasting mg/dL [facility] LABORATORY Comment: ?Fasting* Glucose Interpretive [...] of Diabetes Mellitus, Position Statement from the [place] [employer]. ??Diabete s Care, Volume 33, [...] of body mass or the acutely ill. http://[employer]/[facility]nk[facility] eGFR 98 >=60 mL/min/1.73 m?? [facility] LABORATORY Comment: The eGFR was calculated using the CKD-EP I equation. As with all creatinine based estimates of kidney function, eGFR values calculated with the CKD-EPI equation are not accurate in patients wi th acute kidney failure, extremes of body mass or the acutely ill. http://[employer]/[facility]f Specimen Anatomical Collection Method Collection Time Receive d Time (Source) Location / / Volume Laterality Blood specimen 11/30/2019 2:15 AM 020 2:29 (specimen) EDT AM EDT Resulting Agency Comment Spec In Lab Gretchen Yoon MD CHEMISTRY ORDERABLES Performing Organization Address City/State/[place] [address] (ABNORMAL) Hemogram (11/30/2019 2:15 AM EDT) Analysis Performed At Patho logist Time Signature WBC 11.2 (H) 4.0 - 9.5 [facility] x10(3)/[facility] LABORATORY RBC 3.83 (L) 4.58 - [facility] 5.54 [facility] x10(6)/[facility] LABORATORY Hemoglobin 11.4 (L) 13.7 - [facility] 16.5 gm/dL [facility] LABORATORY Hematocrit 35.2 (L) 40.5 - [place] 48.5 % [facility] LABORATORY MCV 91.9 82.9 - [place] DOV 93.1 [facility] LABORATORY MCH 29.8 27.5 - [place] MARSHDOV 32.1 pg [facility] LABORATORY MCHC 32.4 32.0 - [place] MARSHDOV 35.7 gm/dL [facility] LABORAT[facility] Platelets 122 (L) 145 - 357 [facility] x10(3)/[facility] LABORATORY RDWSD 49.8 (H) 36.0 - [place] MARSHDOV 45.0 [facility] LABORATORY RDWCV 14.8 (H) 11.4 - [facility] DOV 13.8 % [facility] MPV 12.1 7.6 - 12.9 [facility] LABORATORY nRBC % Auto 0.0 % [facility] nRBC Abs Auto 0.000 0.000 - MELINA DOV 0.000 [facility] x10(3)/[facility] LABORATORY Specimen Anatomical Collection Method Collection Time Receive d Time (Source) Location / / Volume Laterality Blood specimen 11/30/2019 2:15 AM 020 2:29 (specimen) EDT AM EDT Resulting Agency Comment Spec In Lab Gretchen Yoon MD HEMATOLOGY ORDERABLES Performing Organization Address City/[facility]/[place] [address] (ABNORMAL) CK (11/30/2019 2:15 AM EDT) athologist [facility] CK, Total 1,969 (H) 0 - 200 MELINA DOV unit/L [facility] Specimen Anatomical Collection Method Collection Time Receive d Time (Source) Location / / Volume Laterality Blood specimen 11/30/2019 2:15 AM 020 2:29 (specimen) EDT AM EDT Resulting Agency Comment Spec In Lab Gretchen Yoon MD CHEMISTRY ORDERABLES Performing Organization Address City/[facility]/[place] [address] (ABNORMAL) Troponin (11/30/2019 2:15 AM EDT) athologist Signature Troponin-T 11.73 (H) 0.00 - MELINA MONAE 0.00 ng/mL [facility] Comment: result rechecked-slw The [...] additional sample may be indicated. Reference: Third Lowgap Definition of Myocardial Infarction. Journal of the [place] [employer] 2012;60:1581-98 result rechecked- The [...] additional sample may be indicated. Reference: Third Lowgap Definition of Myocardial Infarction. Journal of the [place] [employer] 2012;60:1581-98 Corrected from 11.73 ng/ml [HI] on 11/29 3:11:51 EDT by Debi Hawley Specimen Anatomical Collection Method Collection Time Receive d Time (Source) Location / / Volume Laterality Blood specimen 11/30/2019 2:15 AM 020 2:29 (specimen) EDT AM EDT Resulting Agency Comment Spec In Lab Gretchen Yoon MD CHEMISTRY ORDERABLES Performing Organization Address City/[facility]/ZIP Code Phon e Number [address] LDL Cholesterol, Direct (11/30/2019 2:15 AM EDT) P athologist Signature LDL Chol 156 mg/dL [facility] LABORATORY Comment: Lowest Risk: <100 mg/dL Lower Risk: 100-129 mg/dL Borderline High Risk: 130-159 mg/dL High Risk: 160-189 mg/dL Very High Risk: >ai=453 mg/dL Specimen Anatomical Collection Method Collection Time Receive d Time (Source) Location / / Volume Laterality Blood specimen 11/30/2019 2:15 AM 020 2:29 (specimen) EDT AM EDT Resulting Agency Comment Spec In Lab Gretchen Yoon MD CHEMISTRY ORDERABLES Performing Organization Address City/[facility]/ZIP [facility] [place] [address] (ABNORMAL) Hemoglobin A1c (11/30/2019 [...] Avg Gluc See note mg/dL MELINA MONAE [facility] Comment: Estimated Average Glucose not appropriat [...] into estimated average glucose values. ??Diabetes Care 2008:31(8):7420-0101. Specimen Anatomical Collection Method Collection Time Receive d Time (Source) Location / / Volume Laterality Blood specimen 11/30/2019 2:15 AM 020 2:29 (specimen) EDT AM EDT Resulting Agency Comment Spec In Lab Gretchen Yoon MD CHEMISTRY ORDERABLES Performing Organization Address City/State/ZIP Code [place] [address] Lipid Panel (Reflex Direct LDL) (11/30/2019 2:15 AM EDT) athologist Signature Chol, Total 195 mg/dL [facility] Comment: Lower Risk: <200 mg/dL Average Risk: 200-239 mg/dL Higher Risk: >gt=569 mg/dL Triglycerides 93 mg/dL [facility] Comment: Average Risk/Lower Risk: <150 mg/dL Borderline High Risk: 150-199 mg/dL High Risk: 200-499 mg/dL Very High Risk: >rr=535 mg/dL HDL 32 mg/dL [facility] Comment: Males: ?? Higher Risk: <40 mg/dL Females: ?? HIgher Risk: <50 mg/dL LDL Cholesterol 144 mg/dL [facility] Comment: Lowest Risk: <100 mg/dL Lower Risk: 100-129 mg/dL Borderline High Risk: 130-159 mg/dL High Risk: 160-189 mg/dL Very High Risk: >rv=520 mg/dL Chol/HDL Ratio 6.1 ratio [facility] Lipid Interpretation See Note [facility] Comment: Lipid management should be guided by a p atient? s ASCVD risk, goals and preferences. ACC/AHA Guidelines recommend high intens ity statin if clinical ASCVD or LDL greater than or equal to 190 mg/dL. http://[employer].Software 2000/WUZ-QYX-Pdvatyxto Adults aged 40-75 with LDL 70-189 mg/dL should have their 10 year ASCVD risk estimated with the ACC/AHA ASCVD risk es timator http://tools.acc.org/OVBDA-Qhub-Fhkcoqef r/ Statin should be discussed if risk [...] Address City/State/ZIP Code Phon e Number [address] (ABNORMAL) CK (11/29/2019 6:35 PM EDT) athologist Signature CK, Total 2,780 (H) 0 - 200 [facility] unit/L [facility] Specimen Anatomical Collection Method Collection Time Receive d Time (Source) Location / / Volume Laterality Blood specimen 11/29/2019 6:35 PM 020 6:53 (specimen) EDT PM EDT Resulting Agency Comment Spec In Lab Gretchen Yoon MD CHEMISTRY ORDERABLES Performing Organization Address City/[facility]/[place] [address] (ABNORMAL) Troponin (11/29/2019 6:35 PM EDT) athologist Signature Troponin-T 17.60 (H) 0.00 [facility] ng/mL [facility] Comment: result rechecked-az The [...] additional sample may be indicated. Reference: Third Lowgap Definition of Myocardial Infarction. Journal of the [place] [employer] 2012;60:1581-98 Specimen Anatomical Collection Method Collection Time Receive d Time (Source) Location / / Volume Laterality Blood specimen 11/29/2019 6:35 PM 020 6:53 (specimen) EDT PM EDT Resulting Agency Comment Spec In Lab Gretchen Yoon MD CHEMISTRY ORDERABLES Performing Organization Address City/State/ZIP Code Phon e Number [place] [id number] EKG 12 Lead (11/29/2019 3:58 PM EDT) [facility] gist Method Time Signature Ventricular rate 73 BPM MUSE SYSTEM Atrial Rate 73 BPM MUSE SYSTEM P-R Interval 152 ms MUSE SYSTEM QRS Duration 84 ms MUSE SYSTEM Q-T Interval 404 ms MUSE SYSTEM QTC Calculated 445 ms MUSE SYSTEM (Bezet) Calculated P [place] 50 degrees MUSE SYSTEM Calculated R [place] -4 degrees MUSE SYSTEM Calculated T [place] 19 degrees MUSE SYSTEM INTERPRETATION Sinus rhythm [...] Concepcion MD ECG ORDERABLES Performing Organization Address City/[facility]/ZIP Code Phon e Number MUSE SYSTEM [...] CLINICAL HISTORY: stemi (as entered by o community hospital provider in the order requisition) [...] lung apex is excluded from the imaged [id number]. IMPRESSION: 1. ??New right internal jugular pulmonar [...] lung apex is excluded from the imaged [id number]. Procedure Note Estefani Harris MD - 11/29/2019Formattin [...] lung apex is excluded from the imaged [id number]. IMPRESSION 1. New right internal jugular pulmonary [...] (ABNORMAL) Differential, Automated (11/29/2019 2:32 PM EDT) [facility] Method Time Signature Neutrophils % 83.8 % [facility] Neutr Abs (ANC) 12.12 (H) 1.70 - [facility] 6.10 [facility] x10(3)/[facility] LABORATORY Lymphocytes % 9.1 % [facility] Lymphocytes Abs 1.3 0.9 - 3.2 [facility] x10(3)/[facility] LABORATORY Monocytes % 6.2 % [facility] Monocyte Abs 0.9 0.3 - 0.9 [facility] x10(3)/[facility] LABORATORY Eosinophils % 0.0 % [facility] Eosinophils Abs 0.0 0.0 - 0.4 [facility] x10(3)/[facility] LABORATORY Basophils % 0.3 % [facility] Basophils Abs 0.0 0.0 - 0.1 [facility] x10(3)/[facility] LABORATORY Immature Gran % 0.60 % [place] [...] Gran Abs 0.08 (H) 0.00 - 0.04 x10(3)/[facility] LABORATORY Specimen Anatomical Collection Method Collection Time Receive d Time (Source) Location / / Volume Laterality Blood specimen 11/29/2019 2:32 PM 020 2:55 (specimen) EDT PM EDT Resulting Agency Comment Spec In Lab Darrell Glasgow MD HEMATOLOGY ORDERABLES Performing Organization Address City/State/[place] [address] (ABNORMAL) Hemogram (11/29/2019 2:32 PM EDT) Analysis Performed At Patho logist Time Signature WBC 14.5 (H) 4.0 - 9.5 [facility] x10(3[facility] LABORATORY RBC 4.53 (L) 4.58 - [facility] DOV 5.54 [facility] x10(6)/[facility] LABORATORY Hemoglobin 13.1 (L) 13.7 - [facility] 16.5 gm/dL [facility] Hematocrit 40.8 40.5 - [facility] DOV 48.5 % [facility] MCV 90.1 82.9 - [facility] 93.1 [facility] LABORATORY MCH 28.9 27.5 - [facility] DOV 32.1 pg [facility] MCHC 32.1 32.0 - [facility] DOV 35.7 gm/dL [facility] Platelets 184 145 - 357 [facility] x10(3)/[facility] LABORATORY RDWSD 47.8 (H) 36.0 - [facility] DOV 45.0 [facility] LABORATORY RDWCV 14.5 (H) 11.4 - [facility] DOV 13.8 % [facility] MPV 11.9 7.6 - 12.9 [facility] LABORATORY nRBC % Auto 0.0 % [facility] nRBC Abs Auto 0.000 0.000 - MELINA [place] 0.000 [facility] x10(3)/[facility] LABORATORY Specimen Anatomical Collection Method Collection Time Receive d Time (Source) Location / / Volume Laterality Blood specimen 11/29/2019 2:32 PM 020 2:55 (specimen) EDT PM EDT Resulting Agency Comment Spec In Lab Darrell Glasgow MD HEMATOLOGY ORDERABLES Performing Organization Address City/[facility]/ZIP Code Phon e Number [address] (ABNORMAL) CK (11/29/2019 2:32 PM EDT) athologist Signature CK, Total 3,282 (H) 0 - 200 [facility] unit/L [facility] Specimen Anatomical Collection Method Collection Time Receive d Time (Source) Location / / Volume Laterality Blood specimen 11/29/2019 2:32 PM 020 2:32 (specimen) EDT PM EDT Resulting Agency Comment Spec In Lab Gretchen Yoon MD CHEMISTRY ORDERABLES Performing Organization Address City/[facility]/[place] [address] (ABNORMAL) Troponin (11/29/2019 2:32 PM EDT) athologist Signature Troponin-T 20.33 (H) 0.00 - MELINA MONAE 0.00 ng/mL [facility] Comment: The 99th percentile [...] additional sample may be indicated. Reference: Third Lowgap Definition of Myocardial Infarction. Journal of the [place] [employer] 2012;60:1581-98 Specimen Anatomical Collection Method Collection Time Receive d Time (Source) Location / / Volume Laterality Blood specimen 11/29/2019 2:32 PM 020 2:32 (specimen) EDT PM EDT Resulting Agency Comment Spec In Lab Gretchen Yoon MD CHEMISTRY ORDERABLES Performing Organization Address [facility] [place] [address] (ABNORMAL) APTT (11/29/2019 2:32 PM EDT) P athologist Signature PTT 114 25 - 37 [facility] (Critical) [facility] LABORATORY Comment: Critical Result called by [...] Yoon MD HEMATOLOGY ORDERABLES Performing Organization Address City/[facility]/[place] [address] (ABNORMAL) Prothrombin Time (11/29/2019 2:32 PM EDT) P athologist Signature PT 13.5 (H) 9.4 - 12.5 [facility] LABORATORY INR 1.2 [facility] LABORATORY [...] Organization Address City/State/[place] [address] (ABNORMAL) Hepatic Function Panel (11/29/2019 2:32 PM EDT) athologist Signature Total Protein 6.3 6.1 - 8.0 [facility] DOV gm/dL [facility] Albumin 3.6 3.2 - 5.2 MELINA DOV gm/dL [facility] AST 257 (H) 0 - 39 [facility] DOV unit/L [facility] ALT 50 0 - 55 [facility] DOV unit/L [facility] Alk Phos 84 40 - 130 [facility] DOV unit/L [facility] Total 0.3 0.2 - 1.3 MELINA DOV Bilirubin mg/dL [facility] Bili, Direct 0.1 0.0 - 0.3 [facility] DOV mg/dL [facility] Specimen Anatomical Collection Method Collection Time Receive d Time (Source) Location / / Volume Laterality Blood specimen 11/29/2019 2:32 PM 020 2:32 (specimen) EDT PM EDT Resulting Agency Comment Spec In Lab Gretchen Yoon MD CHEMISTRY ORDERABLES Performing Organization Address City/State/[place] [address] (ABNORMAL) pro-Brain Natriuretic Peptide (11/29/2019 2:32 PM EDT) P athologist Signature ProBNP 272 (H) <=125 pg/mL [facility] Specimen Anatomical Collection Method Collection Time Receive d Time (Source) Location / / Volume Laterality Blood specimen 11/29/2019 2:32 PM 020 2:32 (specimen) EDT PM EDT Resulting Agency Comment Spec In Lab Gretchen Yoon MD CHEMISTRY ORDERABLES Performing Organization Address City/[facility]/ZIP Code Phon e Number [address] Magnesium (11/29/2019 2:32 PM EDT) athologist Signature Magnesium 0.76 0.69 - 1.07 [facility] mmol/L [facility] Specimen Anatomical Collection Method Collection Time Receive d Time (Source) Location / / Volume Laterality Blood specimen 11/29/2019 2:32 PM 020 2:32 (specimen) EDT PM EDT Resulting Agency Comment Spec In Lab Gretchen Yoon MD CHEMISTRY ORDERABLES Performing Organization Address City/[facility] [place] [address] (ABNORMAL) Basic Metabolic Panel (non-fasting) (11/29/2019 2:32 PM EDT) athologist Signature Glucose Lvl 149 65 - 199 [facility] mg/dL [facility] Comment: Diabetes: >=200 mg/dL [...] of body mass or the acutely ill. http://[employer]/[facility]IRVIEWnkf eGFR 93 >=60 mL/min/1.73 m?? [facility] Comment: The eGFR was calculated using the CKD-EP I equation. As with all creatinine based estimates of kidney function, eGFR values calculated with the CKD-EPI equation are not accurate in patients wi th acute kidney failure, extremes of body mass or the acutely ill. http://[employer]/[facility] FAIRVIEWnkf Specimen Anatomical Collection Method Collection Time Receive d Time (Source) Location / / Volume Laterality Blood specimen 11/29/2019 2:32 PM 020 2:32 (specimen) EDT PM EDT Resulting Agency Comment Spec In Lab Gretchen Yoon MD CHEMISTRY ORDERABLES Performing Organization Address City/State/ZIP Code Phon e Number [place] [id number] EKG 12 Lead (11/29/2019 11:38 AM EDT) [facility] gist Method Time Signature Ventricular rate 60 BPM MUSE SYSTEM Atrial Rate 60 BPM MUSE SYSTEM P-R Interval 140 ms MUSE SYSTEM QRS Duration 86 ms MUSE SYSTEM Q-T Interval 474 ms MUSE SYSTEM QTC Calculated 474 ms MUSE SYSTEM (Bezet) Calculated P [place] 48 degrees MUSE SYSTEM Calculated R [place] 14 degrees MUSE SYSTEM Calculated T [place] 58 degrees MUSE SYSTEM INTERPRETATION Normal sinus [...] Laterality Volume Narrative 11/30/2019 1:09 PM EDT ?[facility] ? Cardiac Cathete rization/Intervention Report ? Patient Name: Angel Luis Salinas. ? Procedure Date: 11/29/2019 ? A #: [id number] ? Primary Physician: Gretchen Yoon ? Case #: [id number] ? File Name: [id number] ? Catheterization Order Number: [id number] ? [facility] ? Final Report [place], [place] ? Patient Name: ? Angel Luis Salinas ? ID#: ?[id number] ? : ?1945 ? Procedure Date: ? [...] was Emergent. The indication for ?the laboratory apparatus glass blower visit is ACS less than or equal [...] administered prior to arrival in the laboratory apparatus glass blower. ?Recommended anti-platelet/anti- thrombotic regimen: ?Continue aspirin 81 mg daily fo r indefinitely. ?Continue clopidogrel 75 mg marco a y for 12 months then stop. ?These recommendations are made at the time of the intervention. Patient ?and provider preferences or a c hanging clinical situation may require ?modification of this regimen. C onsult [facility] Interventional Cardiology for ?questions. ? Conclusions: ?* [...] note might be different from the original. [facility] Cardiac Catheterization/Intervention Re port Patient Name: Angel Luis Salinas Procedure Date: 11/29/2019 A #: [id number] Primary Physician: Gretchen Yoon Case #: [id number] File Name: [id number] Catheterization Order Number: [id number] [facility] Final Report [place], [place] Patient Name: Angel Luis Salinas ID#: [id number] : 1945 Procedure Date: November 29, [...] was Emergent. The indication for the laboratory apparatus glass blower visit is ACS less than or equal [...] prior t o arrival in the laboratory apparatus glass blower. Recommended anti-platelet/anti-thrombot ic regimen: Continue aspirin 81 mg daily for indefi nitely. Continue clopidogrel 75 mg daily for 12 months then stop. These recommendations are made at the t loyda of the intervention. Patient and provider preferences or a changing clinical situation may require modification of this regimen. Consult [facility] Interventional Cardiology for questions. Conclusions: * Two [...] Signature POC pH 7.33 (L) 7.35 - [facility] 7.45 [facility] POC PCO2 33 (L) 35 - 45 [facility] mmHg [facility] POC PO2 56 (L) 85 - 104 [facility] LABORATORY POC Base Excess -8.0 (L) -3.0 - 3.0 [facility] K mmol/L [facility] POC HCO3 17.4 (L) 20.0 - [facility] 26.0 [facility] POC Sodium 137 135 - 145 [facility] mmol/L [facility] POC Potassium 3.6 3.5 - 5.0 [facility] mmol/L [facility] POC Ionized Ca 1.15 1.15 - [facility] 1.33 [facility] POC Hematocrit 37.0 (L) 40.0 - [facility] 51.0 % [facility] POC Calc Hgb 12.6 (L) 13.7 - [facility] 17.5 gm/dL [facility] Comment: The calculation of hemoglobin f rom hematocrit assumes a normal MCHC. POC Bgas Loc CC LAB [facility] LABORATORY Specimen Anatomical Collection Method Collection Time Receive d Time (Source) Location / / Volume Laterality Blood specimen 11/29/2019 9:17 AM 020 7:35 (specimen) EDT AM EDT Gretchen Yoon MD CHEMISTRY ORDERABLES Performing Organization Address City/State/[place] [address] EKG 12 Lead (11/29/2019 9:01 AM EDT) Component Value Ref Range Test Analysis Performed Pathologis t Method Time At Signature Ventricular rate 80 BPM MUSE SYSTEM Atrial Rate 79 BPM MUSE SYSTEM QRS Duration 94 ms MUSE SYSTEM Q-T Interval 436 ms MUSE SYSTEM QTC Calculated 502 ms MUSE SYSTEM (Bezet) Calculated R [place] 54 degrees MUSE SYSTEM Calculated T [place] 80 degrees MUSE SYSTEM INTERPRETATION Normal sinus [...] RN) 150 mg, Intravenous, ONCE, 1 dose, [place] at 1315, Warning Vesicant/Irritant Medication , Routine [...] ONCE, 1 dose, 12/06/19 at 0515, Ad knuckle strap sewer over 120 Minutes magnesium sulfate 2 g [...] Bentley RN) 0-8,000 Units, Intravenous, BOLUS PER [facility] PROT[facility]OL, Starting 12/06/19 at 0926, Until Sun12/08/19 [...] Oral, EVERY 4 HOURS PRN, Startin g [place] 11/30/19 at 2017, Until Sun12/08/19 at 1811, hypokalemia
Administer for serum potassium (mMol/L) of 3.9 - 4 See instructions for Potassium Protocol in online policies.
Routine Or potassium chloride ER (K-Dur/Klor-Con) tablet 40 mEqJump to med 40 mEq, Oral, EVERY 4 HOURS PRN, Startin g [place] 11/30/19 at 2017, Until Sun12/08/19 at 1811, hypokalemia
Administer for serum potassium (mMol/L) of 3.6 - 3.8 See instructions for Potassium Protocol in online policies.
Routine documented in this encounter Care Teams Floor Sweeper Relationship Specialty Start Date End Date France Lam MD PCP - General 05/02/13 02/04/20 [address] [place] [address] documented as of this encounter
--- OUTSIDE RECORDS SUMMARY | 2022-05-18 11:10 | XMS_ITS | Encounter Summary ---
:1945 Author Organization [employer] [place] [address] Care Team Providers Name Role Phone France Lam MD Primary Care Provider Encounter Details Date Type Department Care Team Description 05/13/2013 Ancillary [facility]ascular [facility] (Primary Appointment [facility] Cesilia Sebastian, [place] Dx) [place] [address] Social History Tobacco Use Types Packs/Day Years Used Date Smoking Tobacco: Every Day Cigarettes 0.5 Cigars Sex Assigned at Date Recorded Not on file documented as of this encounter Plan of Treatment Upcoming Encounters Date Type Specialty Care Team Description 06/30/2022 Office Visit Endocrinology Alan Terrell MD [facility] ER DR ENDOCRINOLOGY [place] [id number] (Wo rk) documented as of this encounter Procedures Procedure Name Priority Date/Time Associated Diagnosis Comme nts IGNACIO, LEGS, MULTIPLE Routine 05/13/2013 8:34 AM Calf pain Re sults for this LEVELS EST procedure are i n the results section. documented in this encounter Results IGNACIO, legs, multiple levels (05/13/2013 8:34 AM EST) Component Value Ref Test Analysis Performed At [facility] Range Method Time Signature VB Text VASCUBASE Report Department: Vascular Surgery Lab Patient: [id number] (ANGEL LUIS [place]) CPT Code: 72586 ICD-9: 440.21 Referring Physician: FRANCE LAM Indication: [...] Posterior Tibial (Ankle) Art derrell ??84 ?0.64 ??[place]- Biphasic ?? 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
--- OUTSIDE RECORDS SUMMARY | 2022-05-18 11:10 | XMS_ITS | Encounter Summary ---
:1945 Author Organization [facility] [place] [address] Care Team Providers Name Role Phone France Lam MD Primary Care Provider Encounter Details Date Type Department Care Team Description 11/29/2019 External Results [place] [address] Social History Tobacco Use Types Packs/Day Years Used Date Smoking Tobacco: Every Day Cigarettes 0.5 Cigars Sex Assigned at Date Recorded Not on file documented as of this encounter Plan of Treatment Upcoming Encounters Date Type Specialty Care Team Description 06/30/2022 Office Visit Endocrinology Alan Terrell MD [facility] ER ENDOCRINOLOGY [place], [place] [address] (Wo rk) documented as [...] on filedocumented in this encounter Care Teams Bench Carpenter Relationship Specialty Start Date End Date France Lam MD PCP - General 05/02/13 02/04/20 [address] [place] [address] documented as of this encounter
--- OUTSIDE RECORDS SUMMARY | 2022-05-18 11:10 | XMS_ITS | Encounter Summary ---
:1945 [place] [address] Care Team Providers Name Role Phone France Lam MD Primary Care Provider Encounter Details Date Type Department Care Team Description 11/29/2019 Telephone Cardiovascular [facility] Silvio piedra MD [facility] Devin [place] [address] [place] [address] [phone] (Wo rk) Social History Tobacco Use Types [...] 50s EKG: Inferior STEMI Silvio Real MD Press Operator Assistant PGY-4 11/29/2019 documented in this encounter Plan of Treatment Upcoming Encounters Date Type Specialty Care Team Description 06/30/2022 Office Visit Endocrinology EchtAlan MD [facility] ENDOCRINOLOGY [place], [place] [address] (Wo rk) documented as of this encounter Visit Diagnoses Not on filedocumented in this encounter Care Teams Cellar Pumper Relationship Specialty Start Date End Date France Lam MD PCP - General 05/02/13 02/04/20 [address] [place] [address] documented as of this encounter
--- OUTSIDE RECORDS SUMMARY | 2022-05-18 11:10 | XMS_ITS | Encounter Summary ---
:1945 Author Organization [facility] [place] [address] Care Team Providers Name Role Phone France Lam MD Primary Care Provider Encounter Details Date Type Department Care Team Description 05/13/2013 Orders Only Vascular Surgery at [facility] cable tower operator disease) [facility] (Primary Dx) [place] [address] Social History Tobacco Use Types Packs/Day [...] Alan Terrell MD [facility] ER DR ENDOCRINOLOGY [place], [place] [address] (Wo rk) documented as of this encounter Visit Diagnoses Diagnosis PVD (peripheral vascular disease) - Prim kayy Peripheral vascular disease, unspecified documented in this encounter Care Teams Chairman And Chief Executive Officer Relationship Specialty Start Date End Date France Lam MD PCP - General 05/02/13 02/04/20 [address] [place] [address] documented as of this encounter
[2022-05-23 10:59] VITALS: BP 117/63; PULSE 50
--- OUTSIDE RECORDS SUMMARY | 2022-05-23 11:06 | XMS_ITS | Encounter Summary ---
:1945 Author Organization [facility] [place] [address] Care Team Providers Name Role Phone Jovany Lott MD Primary Care Provider Encounter Details Date Type Department Care Team Description 10/08/2020 Telephone Cardiology at [facility] Faustino Garduno MD [facility] [place] [address] [place] [address] [phone] (Wo rk) Social History Tobacco Use Types [...] with Dr. Chou, his provider via the [place] (see my prior clinic note). His case [...] offerscheduling for him. Faustino Garduno MD Pager [phone] documented in this encounter Plan of Treatment Upcoming Encounters Date Type Specialty Care Team Description 06/30/2022 Office Visit Endocrinology Alan Terrell MD [facility] ER ENDOCRINOLOGY [place], [place] [address] (Wo rk) documented as of this encounter Visit Diagnoses Not on filedocumented in this encounter Care Teams Consumer Science Teacher Relationship Specialty Start Date End Date Jovany Lott MD PCP - General Family Medicine 02/05/20 [address] [place] [address] documented as of this encounter
--- OUTSIDE RECORDS SUMMARY | 2022-05-23 11:06 | XMS_ITS | Encounter Summary ---
:1945 [place] [address] Care Team Providers Name Role Phone France Lam MD Primary Care Provider Encounter Details Date Type Department Care Team Description 12/29/2019 Ancillary Procedure Radiology Library at Ivette Salas [facility] [place] [address] [place] [address] [phone] (Wo rk) Social History Tobacco Use Types Packs/Day Years Used Date Smoking Tobacco: Every Day Cigarettes 0.5 Cigars Sex Assigned at Date Recorded Not on file documented as of this encounter Plan of Treatment Upcoming Encounters Date Type Specialty Care Team Description 06/30/2022 Office Visit Endocrinology EchAlan coley MD [facility] ENDOCRINOLOGY [place], [place] [address] (Wo rk) documented as of [...] / Laterality Volume Narrative ALBA HANSEN - 01/08/2020 5:00 PM EDT This exam is auto-finalizing. It's purpo se is for storage only. Alfreda Salas HOSPICE CARE CONSULTANT [facility] FILM LIBRARY ORDERABLES Performing Organization Address City/State/ZIP Code Phon e Number [facility] [place], [place] documented in this encounter Visit Diagnoses Not on filedocumented in this encounter Care Teams Passenger Locomotive Engineer Relationship Specialty Start Date End Date France Lam MD PCP - General 05/02/13 02/04/20 [address] [place] [address] documented as of this encounter
--- OUTSIDE RECORDS SUMMARY | 2022-05-23 11:06 | XMS_ITS | Clinical Summary ---
:1945 Author Organization [facility] [place] [address] Care Team Providers Name Role Phone Jovany Lott MD Primary Care Provider Allergies Active Allergy Reactions Severity Noted Date Comments Penicillins 05/13/2013 Pt doesn't gely mber reaction Erskrgo-Ska-Fqs Reductase 05/13/2013 St iff neck, upset stomach, [...] Office Visit Endocrinology Echt, Alan Beatty MD [facility] MEDICAL [facility] DR ENDOCRINOLOGY [place], [place] [address] (Wo rk) Health Maintenance Due [...] Organization Address City/State/ZIP Code Phon e Number [place], [place] from Last 3 Months Insurance Payer Benefit Plan / Subscriber ID Effective Dates Phone Addre ss Type Group MEDICARE MEDICARE PART [id number] 2019-Prese [phone] JUAN MD JUST[place] [id number] [place] [id number] 2018-Presen [employer] [place] [id number] Advance Directives Latest Code Status on File [...] capacity to make decision: Yes Care Teams Voice Data Communications Engineer Relationship Specialty Start Date End Date Jovany Lott MD PCP - General Family Medicine 02/05/20 [address] [facility] [id number]
--- OUTSIDE RECORDS SUMMARY | 2022-05-23 11:06 | XMS_ITS | Encounter Summary ---
:1945 Author Organization [facility] Address [address] [place] [address] Care Team Providers Name Role Phone Jennifer Gomez HEAD CONTROL CLERK Primary Care Provider Encounter Details Date Type Department Care Team Description 09/07/2020 Lab Requisition [facility] Outr Resulting Lab, Pathology & Laboratory Provider [facility] [address] [id number] Social History Tobacco Use Types Packs/Day Years [...] Phon e Number [facility] [address] [place] [address] SERVICES COVID-19 TESTING (09/07/2020 9:45 EST) Analysis Performed At Patho logist Time Signature COVID-19 Negative Negative 09/08/2020 [facility] MEDICAL rt-PCR Result 14:27 EST [...] and its performa nce characteristics determined by [facility]. It has not been cleared [...] testing. This test is based on the [facility] COVID-19 E mergency Use Authorization (EUA) assay, with minor modification as defined by the FDA Performed on the SciQuesto 7 Pro RT-PCR System. Performing Lab [facility] Lab 09/08/2020 14:27 EST [facility] SERVICES Specimen Anatomical Collection Method Collection Time Receive d Time (Source) Location / / Volume Laterality Swab 09/07/2020 9:45 09/07/2020 EST 20:56 EST Provider Outr Resulting Lab MICROBIOLOGY - GENERAL ORD ERABLES Performing Organization Address City/State/ZIP Code Phon e Number [facility] [address] [place] [address] SERVICES documented in this encounter Visit Diagnoses Not on filedocumented in this encounter Care Teams All Around Patternmaker Relationship Specialty Start Date End Date Jennifer Gomez NP PCP - General 05/10/15 [facility] [address] [place] [address] documented as of this encounter
--- OUTSIDE RECORDS SUMMARY | 2022-05-23 11:06 | XMS_ITS | Encounter Summary ---
:1945 Author Organization [facility] Address [facility] [place] [address] Care Team Providers Name Role Phone Jovany Lott MD Primary Care Provider Encounter Details Date Type Department Care Team Description 08/31/2020 TH Visit Cardiology at [facility] Faustino Garduno Atrial fibrillation, unspeci fied type (Primary Dx); (TeleHealth) [facility] MD Jaquan Acute ST elevation myocardial infarction (STEMI) of inferior wall; Drive [facility] Acute systolic CHF (congesti ve heart failure), NYHA class 3, MILVIA/AHA stage C; [place], [place] Center Hyperlipidemia, unspecified hyperlipidem ia type; [address] [place], [place] Intracranial hemorrhage; [phone] PFO (patent foramen ovale); [phone] Claudication fr om peripheral vascular disease, left [...] with ICH, bilateral PE; paroxysmal atrial fibrillation [[id number]: 5]; PAD; HLD; HTN; smoking and PFO,who [...] appointment with Dr. Faustino Chou at the [facility]. However, he has not grossly noted that [...] a non-culprit artery. S/P DESx3 in the qgjfiomr-oz-japcld RCA. Aspiration thrombectomy performed, and integrellin bolus [...] with ICH, bilateral PE; paroxysmal atrial fibrillation [[id number]: 5]; PAD; HLD; HTN; smoking and PFO, [...] Will also discuss further with his local director of rehabilitation, Dr. Mejia. 3. Bilateral PE - Case discussed with Dr. Sanchez above; likely provoked in lieu of his prolonged hospitalization. He has completed at least 6 months of oral A/C (coinciding treatment for his afib). 4. PAD - Continue optimal medical therapy for now. Will place referral for SET/walking program. F/U 3 months Faustino Garduno MD Time spent: 35 minutes Addendum 09/13/20: Called [phone] or [phone] and was able to speak to Dr. Faustino Chou. Pt also sees Dr. Lott in [facility] for local primary care needs. Dr. 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 5RBCs also noted on urinanalysis that subsequently cleared on repeat testing. documented in this encounter Plan of Treatment Upcoming Encounters Date Type Specialty Care Team Description 06/30/2022 Office Visit Endocrinology EchtAlan MD [facility] ENDOCRINOLOGY [place], [place] [address] (Wo rk) documented as of [...] unspecified documented in this encounter Care Teams Electronic Publishing Specialist Relationship Specialty Start Date End Date Jovany Lott MD PCP - General Family Medicine 02/05/[address] [place] [address] documented as of this encounter
--- OUTSIDE RECORDS SUMMARY | 2022-05-23 11:06 | XMS_ITS | Encounter Summary ---
:1945 Author Organization [facility] Address [address] [place] [address] Care Team Providers Name Role Phone Unavailable Primary Care Provider Unavailable Encounter Details Date Type Department Care Team Description 09/15/2003 Results Only [facility] - Otis Patel MD conversion [address] [employer] [employer] [address] [place] [address] [place] [address] (Wo rk) Social History Tobacco Use Types [...] Value Ref Test Analysis Performed At [facility] Method Time Signature Pathology SURGICAL PATHOLOGY REPORT ZAYNAB MARINELLI Report: Reports generated via electronic interface contain catherinea l data; MARLI MENDOZA however they are lacking the format of the original report. Caution should be taken when reading/interpreting unformatte d reports. Name: ? ANGEL LUIS SALINAS ? Accession #: ? [id number] ? : ? 1945 (Age: 58) ??M ? Collect Date: ? 09/15/2003 ? Location: ? [facility] ? Receive Date: ? 09/16/2003 ? Provider: OTIS MOSS MD Copy to: MALCOM MCGEE NUT SORTER ? Final Pathologic Diagnosis: ? Skin of [...] City/State/ZIP Code Phon e Number [facility] [address] [place] [address] SERVICES [facility] [address] [place] [address] documented in this encounter Visit Diagnoses Not on filedocumented in this encounter
--- OUTSIDE RECORDS SUMMARY | 2022-05-23 11:06 | XMS_ITS | Encounter Summary ---
:1945 Author Organization [facility] Address [facility] [place] [address] Care Team Providers Name Role Phone France Lam MD Primary Care Provider Encounter Details Date Type Department Care Team Description 12/30/2019 TH Visit Cardiology at [facility] Faustino Garduno Claudication from peripheral vascular disease, left ; (TeleHealth) [facility] MD Jaquan Hyperlipidemia, unspecified hyperlipidem ia type; Drive [facility] Acute ST elevation myocardia l infarction (STEMI) of inferior wall; [place], [place] Center Acute systolic CHF (congestive heart reid lure), NYHA class 3, MILVIA/AHA stage C; [address] [place], [place] Intracranial hemorrhage; [phone] Atrial fibrillation, unspecified type Social History Tobacco [...] with ICH, bilateral PE; paroxysmal atrial fibrillation [[id number]: 5]; PAD; HLD; HTN; smoking and PFO,who [...] a non-culprit artery. S/P DESx3 in the tseihjzg-hs-faxlom RCA. Aspiration thrombectomy performed, and integrellin bolus [...] with ICH, bilateral PE; paroxysmal atrial fibrillation [[id number]: 5]; PAD; HLD; HTN; smoking and PFO, who presents for post-discharge cardiovascular follow-up. CV issues are currently stable. Plan 1. CAD - CCS Class 0. Recovering well. He has completed 1 month of triple therapy. He may stop his aspirin, and resume clopidogrel and apixaban. Starting cardiac rehab. He wishes to pursue PCSK9 referral via the [place] system. 2. Afib - CHADS2-vasc 5, presently [...] 6 months Faustino Garduno MD Time spent: [id number] 0-5min 8814VVR0 6-10min 8822VHA9 11-15min 1111SGM1 16-20min XXXX [id number] 21-30min 0566QSL7 31-40min 1806CLL4 40+ min documented in this encounter Plan of Treatment Upcoming Encounters Date Type Specialty Care Team Description 06/30/2022 Office Visit Endocrinology Alan Terrell MD [facility] [address] [place], [place] [address] (Wo rk) documented as of [...] type documented in this encounter Care Teams Stationary Engineer Relationship Specialty Start Date End Date France Lam MD PCP - General 05/02/13 02/04/20 [address] [place] [address] documented as of this encounter
--- OUTSIDE RECORDS SUMMARY | 2022-05-23 11:06 | XMS_ITS | Encounter Summary ---
:1945 Author Organization [facility] Address [address] [place] [address] Care Team Providers Name Role Phone Jennifer Gomez TILE DESIGNER Primary Care Provider Encounter Details Date Type Department Care Team Description 04/24/2022 Lab Requisition [facility] Outr Resulting Lab, Pathology & Laboratory Provider [facility] [address] [address] Social History Tobacco Use Types Packs/Day Years [...] T3, Free 2.8 2.8 - 5.3 04/25/2022 [facility] pg/mL 21:09 EDT CENTER LABORATORY SERVICES Specimen Anatomical Collection Method Collection Time Receive d Time (Source) Location / / Volume Laterality Blood VENOUS BLOOD / 04/24/2022 11:50 Unknown EDT 20:27 EDT Provider Outr Resulting Lab CHEMISTRY & BLOOD GAS CHLOE IBARRA Performing Organization Address City/State/ZIP Code Phon e Number [facility] [address] [place] [address] SERVICES documented in this encounter Visit Diagnoses Not on filedocumented in this encounter Care Teams Regulatory Technician Relationship Specialty Start Date End Date Jennifer Gomez, TILE DESIGNER PCP - General 05/10/15 [facility] [address] [place] [address] documented as of this encounter
--- OUTSIDE RECORDS SUMMARY | 2022-05-23 11:06 | XMS_ITS | Continuity of Care Document ---
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 Z23 Encounter for [place] immunizationwith CBO C Provider Comments: Encounter for Immunization Diagnosis: ICD-10-CM Active Diagnosis ST. H90.3 Sensorineural [facility] hearing loss, CBOC bilateralwith Provider Comments: Asymmetrical sensorineural hearing loss (SNOMED CT [id number]) Diagnosis: ICD-10-CM Active Diagnosis ST. I25.10 Athscl heart [facility] disease of [place] CB OC coronary artery w/o ang pctrswith Provider Comments: Atherosclerotic Heart Disease of [place] Coronary Artery without Angina Pectoris Medications Combined list of outpatient medications from Department of Defense and Veterans Affairs facilities. Medications provided include 1) outpatient medications from the last 15 months, and 2) patient-reported medications. Medication Details Route Status Patient Prescription Prescription Last Ordering Order Source Instructions Expires Number Dispense Provider Date Date AMIODARONE TAKE ONE ORAL ACTIVE 02/14/2023 [id number] JORGE A LOZA 02/15/ CARLOS HCL TABLET 2 N 2021 [place] (PACERONE) BY MOUTH [place] 200MG TAB EVERY [facility] DAY AFTER ONE MONTH OF TWICE DAILY DOSING THROUGH 02/26/22 APIXABAN TAKE ONE ORAL ACTIVE 2023 [id number] WILLIE LOZA 01/20/ WHITE 5MG TAB TABLET 2 N 2021 [place] BY MOUTH [place] TWICE A [facility] DAY TO HELP PREVENT BLOOD CLOTS (ANTICOA GULATION CCNRX) APIXABAN TAKE ONE ORAL 12/21/2021 [id number] GIANGR ECO 12/30/ WHITE 5MG TAB TABLET [...] DAY FUROSEMIDE TAKE ONE ORAL ACTIVE 12/17/2022 [id number] JORGE A LOZA 12/21/ WHITE 20MG TAB TABLET 2 N 2021 [place] BY MOUTH [place] EVERY [facility] OTHER DAY TO REMOVE FLUID/CO NTROL BLOOD PRESSURE FUROSEMIDE TAKE ONE ORAL 11/12/2021 [id number] SJ PATTON,M 11/12/ ST. 20MG TAB TABLET 2 ICHAEL 2020 [place] BY MOUTH RY CBOC EVERY OTHER DAY TO REMOVE FLUID/CO NTROL BLOOD PRESSURE LISINOPRIL TAKE ONE ORAL ACTIVE 12/17/2022 [id number] JORGE A LOZA 12/21/ WHITE 5MG TAB TABLET 2 N 2021 [place] BY MOUTH [place] EVERY [facility] DAY TO CONTROL BLOOD PRESSURE LISINOPRIL TAKE ONE ORAL DISCONT 06/08/2022 [id number] JORGE A LOZA 06/15/ WHITE 5MG TAB TABLET INUED 2 N 2020 [place] BY MOUTH [place] EVERY [facility] DAY TO CONTROL BLOOD PRESSURE LISINOPRIL TAKE ONE ORAL 06/03/2021 [id number] STANL EY,M 06/08/ ST. 5MG TAB TABLET 1 ICHAEL 2019 [place] BY MOUTH RY CBOC EVERY DAY TO CONTROL BLOOD PRESSURE METOPROLOL TAKE ONE ORAL ACTIVE 02/14/2023 [id number] JORGEA LOZA 02/15/ WHITE SUCCINATE TABLET 2 N 2021 [place] 25MG TAB,SA BY MOUTH [place] EVERY [facility] DAY FOR BLOOD PRESSURE /HEART METOPROLOL TAKE ONE ORAL DISCONT 02/23/2022 [id number] Mery BLEVINS 02/28/ ST. SUCCINATE TABLET INUED 2 ICHAEL 2020 [place] 25MG TAB,SA BY MOUTH RY CB OC EVERY DAY FOR BLOOD PRESSURE /HEART NITROGLYCER TAKE ONE SUBLIN 02/23/2022 [id number] Stew LUOMery 02/28/ ST. IN 0.4MG TABLET GUAL 1 2020 [place] TAB,SUBLING UNDER RY CBOC UAL THE TONGUE EVERY 5 MINUTES NEEDED FOR CHEST PAIN (ANGINA) MAY REPEAT FOR THREE DOSES (IF NO RELIEF,S [facility] N PROMPTLY ) Allergies, Adverse Reactions, Alerts Combined list of allergies from Department of Defense and Veterans Affairs facilities. It does not include entries that were removed or entered in error. Substance Category Reaction Severity Reaction Status Date Comments S ource type Reported ATORVASTATIN/ Propensity Headache Propensity active WHITE EZETIMIBE to adverse to adverse 5 [place]IVER reactions reactions [place] to drug to drug [facility] (finding) (finding) EVOLOCUMAB Propensity Joint Propensity active [...] to drug to drug [facility] (finding) (finding) PENICILLIN Propensity Propensity active WHITE [...] atus Comments Source Given By Number Code Rn Triage ZOSTER [address] RECOMBINANT 2020 ed [...] R Y CBOC INFLUENZA, complet WHITE UNSPECIFIED 2016 ed RI DORI FORMULATION ANILA T [facility] [...] H Specimen Type: PLASMA WHITE E WITH [MASS/ Comment: Fo r eGFR: Race unknown, if multiply result by 1.210 Tests performed on [facility] Radiological Technologist (405) SN:[id number] [place] eGFR E] IN SERUM Ordering Pr ovider: MILTON UREÑA [facility] PANEL OR PLASMA Report Releas ed Date/Time: Feb 24, 2021 11:18 AM Reporting Lab: [place] [facility] [address] [facility] [place] [address] Performing Lab: [place] [facility] [address] [place] [facility] [place] [address] CREATININ GLOMERULAR 44 60 04/28 L Specimen Ty pe: PLASMA WHITE E WITH FILTRATION /2020 Comment: For eGFR: Race unknown, if multiply result by 1.210 Tests performed on [facility] Radiological Technologist (405) SN:[id number] [place] eGFR RATE/1.73 Ordering Prov ider: MIL[place] UREÑA [facility] PANEL SQ Report Released Date/Time: Feb 24, 2021 11:18 AM M.PREDICTED Reporting L ab: [place] [facility] [VOLUME [address] [place] [facility] [place] [address] RATE/AREA] Performing L ab: [place] [facility] IN SERUM OR [address] [place] [facility] [place] [address] PLASMA BY CREATININE- BASED FORMULA (MDRD) CBC NO LEUKOCYTES 5.8 4.5 - 11.0 04/28 Specimen T ype: BLOOD WHITE DIFF [#/VOLUME] /2020 No comment en tered. [place] IN BLOOD BY Ordering Pr ovider: [place] [facility] AUTOMATED Report Releas ed Date/Time: Feb 24, 2021 11:18 AM COUNT Reporting Lab: [place] [facility] [address] [facility] [place] [address] Performing Lab: [place] [facility] [address] [place] [facility] [place] [address] CBC NO ERYTHROCYTE 4.61 4.23 - 04/28 Specimen Typ e: BLOOD WHITE DIFF S 5.66 /2020 No comment enter ed. [place] [#/VOLUME] Ordering Pro vider: MIL[place] UREÑA [facility] IN BLOOD BY Report Rele ased Date/Time: Feb 24, 2021 11:18 AM AUTOMATED Reporting Lab : [place] [facility] COUNT [address] [place] [facility] [place] [address] Performing Lab: [place] [facility] [address] [facility] [address] CBC NO HEMOGLOBIN 13.9 12.8 - 17 04/28 Specimen Ty pe: BLOOD WHITE DIFF [MASS/VOLUM /2020 No comment e ntered. [place] E] IN BLOOD Ordering Pr ovider: MILTON UREÑAOC Report Released Date/Time: Feb 24, 2021 11:18 AM Reporting Lab: [place] [facility] [address] [facility] [address] Performing Lab: [place] [facility] [address] [facility] [address] CBC NO HEMATOCRIT 43.6 39.2 - 04/28 Specimen Type : BLOOD WHITE DIFF [VOLUME 50.4 No comment enter ed. [place] FRACTION] Ordering Prov ider: MILTON UREÑA [facility] OF BLOOD BY Report Rele ased Date/Time: Feb 24, 2021 11:18 AM AUTOMATED Reporting Lab : [place] [facility] COUNT [address] [facility] [address] Performing Lab: [place] [facility] [address] [facility] [address] CBC NO MCV 94.6 82 - 99 04/28 Specimen Type: B LOOD WHITE DIFF [ENTITIC /2020 No comment ente red. [place] VOLUME] BY Ordering Pro vider: MILTON UREÑ[facility] AUTOMATED Report Releas ed Date/Time: Feb 24, 2021 11:18 AM COUNT Reporting Lab: [place] [facility] [address] [place] [facility] [place] [address] Performing Lab: [place] [facility] [address] [place] [facility] [place] [address] CBC NO MCH 30.2 26.2 - 04/28 Specimen Type: B LOOD WHITE DIFF [ENTITIC 32.6 No comment ente red. [place] MASS] BY Ordering Provi adrian: MILTON UREÑAOC AUTOMATED Report Releas ed Date/Time: Feb 24, 2021 11:18 AM COUNT Reporting Lab: [place] [facility] [address] [facility] [address] Performing Lab: [place] [facility] [address] [facility] [address] CBC NO MCHC 31.9 30.8 - 04/28 Specimen Type: B LOOD WHITE DIFF [MASS/VOLUM 35.1 No comment e ntered. [place] E] BY Ordering Provid er: MILTON UREÑA AUTOMATED Report Releas ed Date/Time: Feb 24, 2021 11:18 AM COUNT Reporting Lab: [place] [facility] [address] [facility] [address] Performing Lab: [place] [facility] [address] [facility] [address] CBC NO PLATELETS 141 140 - 360 04/28 Specimen Typ e: BLOOD WHITE DIFF [#/VOLUME] /2020 No comment en tered. [place] IN BLOOD BY Ordering Pr ovider: MILTON UREÑA AUTOMATED Report Releas ed Date/Time: Feb 24, 2021 11:18 AM COUNT Reporting Lab: [place] [facility] [address] [facility] [address] Performing Lab: [place] [facility] [address] [facility] [address] CBC NO PLATELET 12.1 9.2 - 12.4 04/28 Specimen Typ e: BLOOD WHITE DIFF MEAN VOLUME /2020 No comment e ntered. [place] [ENTITIC Ordering Provi adrian: MILTON UREÑAOC VOLUME] IN Report Relea sed Date/Time: Feb 24, 2021 11:18 AM BLOOD BY Reporting Lab: [place] [facility] AUTOMATED [address] [facility] [address] COUNT Performing Lab: [place] [facility] [address] [facility] [address] CBC NO ERYTHROCYTE 15.0 12.0 - 04/28 Specimen Typ e: BLOOD WHITE DIFF DISTRIBUTIO 16.0 No comment e ntered. [place] N WIDTH Ordering Provid er: MILTON UREÑAOC [RATIO] BY Report Relea sed Date/Time: Feb 24, 2021 11:18 AM AUTOMATED Reporting Lab : [place] [facility] COUNT [address] [facility] [address] Performing Lab: [place] [facility] [address] [facility] [address] CREATININ CREATININE 1.37 0.5 - 1.5 02/22 Specimen Type: PLASMA WHITE E WITH [MASS/VOLUM /2020 Comment: Fo r eGFR: Race unknown, if multiply result by 1.210 Tests performed on [employer] (405) SN:[id number] [place] eGFR E] IN SERUM Ordering Pr ovider: MIL[place] UREÑA [facility] PANEL OR PLASMA Report Releas ed Date/Time: Dec 20, 2020 02:24 PM Reporting Lab: [place] [facility] [address] [facility] [address] Performing Lab: [place] [facility] [address] [facility] [address] CREATININ GLOMERULAR 51 60 02/22 L Specimen Ty pe: PLASMA WHITE E WITH FILTRATION /2020 Comment: For eGFR: Race unknown, if multiply result by 1.210 Tests performed on [facility] Radiological Technologist (405) SN:[id number] [place] eGFR RATE/1.73 Ordering Prov ider: [place] U[place]ÑA [facility] PANEL SQ Report Released Date/Time: Dec 20, 2020 02:24 PM M.PREDICTED Reporting L ab: [place] [facility] [VOLUME [address] [facility] [address] RATE/AREA] Performing L ab: [place] [facility] IN SERUM OR [address] [facility] [address] PLASMA BY CREATININE- BASED FORMULA (MDRD) CBC NO LEUKOCYTES 6.8 4.5 - 11.0 02/22 Specimen T ype: BLOOD WHITE DIFF [#/VOLUME] /2020 No comment en tered. [place] IN BLOOD BY Ordering Pr ovider: [place] [facility] AUTOMATED Report Rele ed Date/Time: Dec 20, 2020 02:24 PM COUNT Reporting Lab: [place] [facility] [address] [facility] [address] Performing Lab: [place] [facility] [address] [facility] [address] CBC NO ERYTHROCYTE 5.03 4.23 - 08/24 Specimen Typ e: BLOOD WHITE DIFF S 5.66 /2020 No comment enter ed. [place] [#/VOLUME] Ordering Pro vider: MILTON UREÑA [facility] IN BLOOD BY Report Rele ased Date/Time: Dec 20, 2020 02:24 PM AUTOMATED Reporting Lab : [place] [facility] COUNT [address] [facility] [place] [address] Performing Lab: [place] [facility] [address] [facility] [place] [address] CBC NO HEMOGLOBIN 14.9 12.8 - 17 02/22 Specimen Ty pe: BLOOD WHITE DIFF [MASS/VOLUM /2020 No comment e ntered. [place] E] IN BLOOD Ordering Pr ovider: MILTON UREÑAOC Report Released Date/Time: Dec 20, 2020 02:24 PM Reporting Lab: [place] [facility] [address] [facility] [place] [address] Performing Lab: [place] [facility] [address] [facility] [place] [address] CBC NO HEMATOCRIT 46.7 39.2 - 02/22 Specimen Type : BLOOD WHITE DIFF [VOLUME 50.4 No comment enter ed. [place] FRACTION] Ordering Prov ider: MILTON UREÑA [facility] OF BLOOD BY Report Rele ased Date/Time: Dec 20, 2020 02:24 PM AUTOMATED Reporting Lab : [place] [facility] COUNT [address] [facility] [place] [address] Performing Lab: [place] [facility] [address] [facility] [place] [address] CBC NO MCV 92.8 82 - 99 02/22 Specimen Type: B LOOD WHITE DIFF [ENTITIC /2020 No comment ente red. [place] VOLUME] BY Ordering Pro vider: MILTON UREÑ[facility] AUTOMATED Report Releas ed Date/Time: Dec 20, 2020 02:24 PM COUNT Reporting Lab: [place] [facility] [address] [facility] [place] [address] Performing Lab: [place] [facility] [address] [facility] [place] [address] CBC NO MCH 29.6 26.2 - 02/22 Specimen Type: B LOOD WHITE DIFF [ENTITIC 32.6 /2020 No comment ente red. [place] MASS] BY Ordering Provi adrian: MILTON UREÑA AUTOMATED Report Releas ed Date/Time: Dec 20, 2020 02:24 PM COUNT Reporting Lab: [place] [facility] [address] [facility] [place] [address] Performing Lab: [place] [facility] [address] [place] [facility] [place] [address] CBC NO MCHC 31.9 30.8 - 08 Specimen Type: B LOOD WHITE DIFF [MASS/VOLUM 35.1 /2020 No comment e ntered. [place] E] BY Ordering Provid er: MILTON UREÑA AUTOMATED Report Releas ed Date/Time: Dec 20, 2020 02:24 PM COUNT Reporting Lab: [place] [facility] [address] [place] [facility] [place] [address] Performing Lab: [place] [facility] [address] [place] [facility] [place] [address] CBC NO PLATELETS 159 140 - 360 08 Specimen Typ e: BLOOD WHITE DIFF [#/VOLUME] /2020 No comment en tered. [place] IN BLOOD BY Ordering Pr ovider: MILTON UREÑ[facility] AUTOMATED Report Releas ed Date/Time: Dec 20, 2020 02:24 PM COUNT Reporting Lab: [place] [facility] [address] [place] [facility] [place] [address] Performing Lab: [place] [facility] [address] [place] [facility] [place] [address] CBC NO PLATELET 13.0 9.2 - 12.4 08/24 H Specimen Typ e: BLOOD WHITE DIFF MEAN VOLUME /2020 No comment e ntered. [place] [ENTITIC Ordering Provi adrian: MILTON UREÑA VAOC VOLUME] IN Report Relea sed Date/Time: Dec 20, 2020 02:24 PM BLOOD BY Reporting Lab: [place] [facility] AUTOMATED [address] [place] [facility] [place] [facility] [place] [address] COUNT Performing Lab: [place] [facility] [address] [place] [facility] [place] [address] CBC NO ERYTHROCYTE 14.6 12.0 - 08 Specimen Typ e: BLOOD WHITE DIFF DISTRIBUTIO 16.0 /2020 No comment e ntered. [place] N WIDTH Ordering Provid er: [facility] [RATIO] BY Report Relea sed Date/Time: Dec 20, 2020 02:24 PM AUTOMATED Reporting Lab : [facility] [address] [facility] [address] Performing Lab: [facility] [address] [facility] [address] P4 UREA 20 7 - 25 02/22 Specimen Type: P LASMA ST. GLU,BUN,C NITROGEN /2020 Comment: For eGFR: Race unknown, if multiply result by 1.210 Tests performed on [employer] (405) SN:[id number] IVORY BECKETT [MASS/VOLUM Ordering Provider: GRETCHEN PEREZ CA E] IN SERUM Report Rele ased Date/Time: Feb 22, 2021 10:13 AM OR PLASMA Reporting Lab : [facility] [address] [facility] [address] Per[facility]: [facility] [address] [facility] [address] P4 SODIUM 133 135 - 145 / L Specimen Type: PLASMA ST. GLU,BUN,C [MOLES/VOLU /2020 Comment: For eGFR: Race unknown, if multiply result by 1.210 Tests performed on [employer] (405) SN:[id number] IVORY BECKETT PR] IN Ordering Prov ider: GRETCHEN PEREZ CA SERUM OR Report Release d Date/Time: Feb 22, 2021 10:13 AM PLASMA Reporting Lab: [facility] [address] [facility] [address] Per[facility]: [facility] [address] [facility] [address] P4 POTASSIUM 4.5 3.5 - 5.0 02/22 Specimen Typ e: PLASMA ST. GLU,BUN,C [MOLES/VOLU /2020 Comment: For eGFR: Race unknown, if multiply result by 1.210 Tests performed on [employer] (405) SN:[id number] IVORY BECKETT PR] IN Ordering Prov ider: GRETCHEN PEREZ CA SERUM OR Report Release d Date/Time: Feb 22, 2021 10:13 AM PLASMA Reporting [facility] [address] [place] [facility] [place] [address] [facility]: [facility] [address] [facility] [address] P4 CHLORIDE 102 100 - 110 02/22 Specimen Type : PLASMA ST. GLU,BUN,C [MOLES/VOLU /2020 Comment: For eGFR: Race unknown, if multiply result by 1.210 Tests performed on [facility] Radiological Technologist (405) SN:[id number] MARCELA REAT,LYTE ME] IN Ordering Prov ider: GRETCHEN PEREZ CA SERUM OR Report Release d Date/Time: Feb 22, 2021 10:13 AM PLASMA Reporting Lab: [facility] [address] [place] [facility] [place] [address] Per[facility]: [facility] [address] [place] [facility] [place] [address] P4 CARBON 21 20 - 30 02/22 Specimen Type: P LASMA ST. GLU,BUN,C DIOXIDE, /2020 Comment: For eGFR: Race unknown, if multiply result by 1.210 Tests performed on [employer] (405) SN:[id number] JOHNSCAESAR REAT,LYTE TOTAL Ordering Prov ider: GRETCHEN PEREZ CA [MOLES/VOLU Report Rele ased Date/Time: Feb 22, 2021 10:13 AM ME] IN Reporting Lab: [facility] [address] [place] [facility] [place] [address] PLASMA Performing Lab: [facility] [address] [place] [facility] [place] [address] P4 ANION GAP 10 4 - 16 02/22 Specimen Type: PLASMA ST. GLU,BUN,C IN SERUM OR /2020 Comment: For eGFR: Race unknown, if multiply result by 1.210 Tests performed on [employer] (405) SN:[id number] JOHNSCAESAR REAT,LYTE PLASMA Ordering Prov ider: GRETCHEN PEREZ CA Report Released Date/Time: Feb 22, 2021 10:13 AM Reporting Lab: [facility] [address] [place] [facility] [place] [address] Per[facility]: [facility] [address] [facility] [address] P4 GLUCOSE 106 65 - 100 08/24 H Specimen Type: PLASMA ST. GLU,BUN,C [MASS/VOLUM /2020 Comment: For eGFR: Race unknown, if multiply result by 1.210 Tests performed on [employer] (405) SN:[id number] IVORY BECKETT] IN SERUM Ordering Provider: GRETCHEN PEREZCA OR PLASMA Report Releas ed Date/Time: Feb 22, 2021 10:13 AM Reporting Lab: [facility] [address] [facility] [address] Performing Lab: [facility] [address] [facility] [address] P4 CREATININE 1.37 0.5 - 1.5 08/24 Specimen Ty pe: PLASMA ST. GLU,BUN,C [MASS/VOLUM /2020 Comment: For eGFR: Race unknown, if multiply result by 1.210 Tests performed on [employer] (405) SN:[id number] BLAIR BECKETTTE E] IN SERUM Ordering Provider: GRETCHEN PEREZ CA OR PLASMA Report Releas ed Date/Time: Feb 22, 2021 10:13 AM Reporting Lab: [facility] [address] [facility] [address] Performing Lab: [facility] [address] [facility] [address] P4 CALCIUM 9.6 8.5 - 10.5 02/22 Specimen Type : PLASMA ST. GLU,BUN,C [MASS/VOLUM /2020 Comment: For eGFR: Race unknown, if multiply result by 1.210 Tests performed on [employer] (405) SN:[id number] BLAIR BECKETTTE E] IN SERUM Ordering Provider: GRETCHEN PEREZCA OR PLASMA Report Releas ed Date/Time: Feb 22, 2021 10:13 AM Reporting Lab: [facility] [address] [facility] [address] Performing [facility]: [facility] [address] [facility] [address] P4 GLOMERULAR 51 60 08/24 L Specimen Type : PLASMA ST. GLU,BUN,C FILTRATION /2020 Comment: F or eGFR: Race unknown, if multiply result by 1.210 Tests performed on [employer] (405) SN:[id number] IVORY BECKETT RATE/1.73 Ordering Pr ovider: GRETCHEN PEREZ S,CA SQ Report Released Date/Time: Feb 22, 2021 10:13 AM M.PREDICTED Reporting L ab: [place] [facility] [VOLUME [address] [facility] [address] RATE/AREA] Performing L ab: [place] [facility] IN SERUM OR [address] [facility] [address] PLASMA BY CREATININE- BASED FORMULA (MDRD) LIVER PROTEIN 8.0 6.0 - 8.5 02/22 Specimen Type: PLASMA ST. PROFILE [MASS/VOLUM /2020 Comment: Fo r eGFR: Race unknown, if multiply result by 1.210 Tests performed on [employer] Radiological Technologist (405) SN:[id number] MARCELA E] IN SERUM Ordering Pr ovider: GRETCHEN PEREZ OR PLASMA Report Releas ed Date/Time: Feb 22, 2021 10:13 AM Reporting Lab: [place] [facility] [address] [facility] [place] [address] Performing Lab: [place] [facility] [address] [place] [facility] [place] [address] LIVER ALBUMIN 4.0 3.2 - 5.0 02/22 Specimen Type: PLASMA ST. PROFILE [MASS/VOLUM /2020 Comment: Fo r eGFR: Race unknown, if multiply result by 1.210 Tests performed on [employer] (405) SN:[id number] MARCELA E] IN SERUM Ordering Pr ovider: GRETCHEN PEREZ OR PLASMA Report Releas ed Date/Time: Feb 22, 2021 10:13 AM Reporting Lab: [place] [facility] [address] [facility] [place] [address] Performing Lab: [place] [facility] [address] [place] [facility] [place] [address] LIVER BILIRUBIN.T 0.6 0.2 - 1.2 02/22 Specimen T ype: PLASMA ST. PROFILE OTAL /2020 Comment: For eG FR: Race unknown, if multiply result by 1.210 Tests performed on [employer] (405) SN:[id number] [facility] [MASS/VOLUM Ordering Pr ovider: GRETCHEN PEREZ E] IN SERUM Report Rele ased Date/Time: Feb 22, 2021 10:13 AM OR PLASMA Reporting Lab : [facility] [address] [facility] [address] Per[facility]: [facility] [address] [facility] [address] LIVER ALKALINE 75 40 - 150 08 Specimen Type: PLASMA ST. PROFILE PHOSPHATASE /2020 Comment: Fo r eGFR: Race unknown, if multiply result by 1.210 Tests performed on [employer] (405) SN:[id number] [facility] [ENZYMATIC Ordering Pro vider: GRETCHEN PEREZ ACTIVITY/VO Report Rele ased Date/Time: Feb 22, 2021 10:13 AM LUME] IN Reporting Lab: [facility] SERUM OR [address] [facility] [address] PLASMA Performing Lab: [facility] [address] [facility] [address] LIVER ALANINE 16 7 - 52 02/22 Specimen Type: P LASMA ST. PROFILE AMINOTRANSF /2020 Comment: Fo r eGFR: Race unknown, if multiply result by 1.210 Tests performed on [employer] (405) SN:[id number] [facility] ERASE Ordering Provid er: GRETCHEN PEREZ [ENZYMATIC Report Relea sed Date/Time: Feb 22, 2021 10:13 AM ACTIVITY/VO Reporting L ab: [facility] LUME] IN [address] [place] [facility] [place] [address] SERUM OR Performing Lab : [facility] PLASMA [address] [place] [facility] [place] [address] LIVER ASPARTATE 17 5 - 34 02/22 Specimen Type: PLASMA ST. PROFILE AMINOTRANSF /2020 Comment: Fo r eGFR: Race unknown, if multiply result by 1.210 Tests performed on [employer] Software (405) SN:[id number] [facility] ERASE Ordering Provid er: GRETCHEN PEREZ [ENZYMATIC Report Relea sed Date/Time: Feb 22, 2021 10:13 AM ACTIVITY/VO Reporting L ab: [facility] [place]] IN [address] [facility] [address] SERUM OR Performing Lab : [facility] PLASMA [address] [place] [facility] [place] [address] LIPOPROTE CHOLESTEROL 361 0 - 199 08/24 H Specimen T ype: PLASMA ST. IN [MASS/VOLUM /2020 Comment: Fo r eGFR: Race unknown, if multiply result by 1.210 Tests performed on [employer] (405) SN:[id number] [employer] CHOLESTER E] IN SERUM Ordering Provider: GRETCHEN PEREZ OL FRACT. OR PLASMA Report Rele ased Date/Time: Feb 22, 2021 10:13 AM PANEL Reporting Lab: [facility] [address] [facility] [address] Performing Lab: [facility] [address] [facility] [address] LIPOPROTE TRIGLYCERID 170 0 - 149 08/24 H Specimen T ype: PLASMA ST. IN E Comment: For eG FR: Race unknown, if multiply result by 1.210 Tests performed on Gonsalez Act[employer] Software (405) SN:[id number] [facility] CHO[facility] [MASS/VOLUM Ordering Provider: GRETCHEN PEREZ OL FRACT. E] IN SERUM Report Re leased Date/Time: Feb 22, 2021 10:13 AM PANEL OR PLASMA Reporting Lab : [facility] [address] [facility] [address] Performing Lab: [facility] [address] [facility] [address] LIPOPROTE CHOLESTEROL 46 40 08/24 Specimen T ype: PLASMA ST. IN IN HDL /2020 Comment: For eG FR: Race unknown, if multiply result by 1.210 Tests performed on [employer] (405) SN:[id number] [place] CHOLESTER [MASS/VOLUM Ordering Provider: GRETCHEN PEREZ OL FRACT. E] IN SERUM Report Re leased Date/Time: Feb 22, 2021 10:13 AM PANEL OR PLASMA Reporting Lab : [facility] [address] [facility] [address] Performing Lab: [facility] [address] [facility] [address] LIPOPROTE CHOLESTEROL 281 0 - 129 08/24 H Specimen T ype: PLASMA ST. IN IN LDL /2020 Comment: For eG FR: Race unknown, if multiply result by 1.210 Tests performed on Gonsalez Cath Lab Radiological Technologist (405) SN:[id number] MARCELA CHOLESTER [MASS/VOLUM Ordering Provider: GRETCHEN PEREZ OL FRACT. E] IN SERUM Report Re leased Date/Time: Feb 22, 2021 10:13 AM PANEL OR PLASMA Reporting Lab : [facility] [address] [facility] [address] CALCULATION Performing Lab: [facility] [address] [facility] [address] GLYCOHEMO HEMOGLOBIN 6.2 4.0 - 5.6 08/24 H Specimen Type: BLOOD ST. GLOBIN A1C/HEMOGLO /2020 Comment: Te sts performed on Gonsalez Cath Lab Radiological Technologist (405) SN:[id number] MARCELA (A1C BIN.TOTAL Ordering Prov ider: GRETCHEN PEREZ ONLY) IN BLOOD BY Report Rele ased Date/Time: Feb 22, 2021 10:13 AM HPLC Reporting Lab: [facility] [address] [facility] [address] Performing Lab: [facility] [address] [facility] [address] VITAMIN COBALAMIN 312 200 - 900 02/22 Specimen Typ e: SERUM ST. B-12 (VITAMIN /2020 Comment: Tests performed on Gonsalez Cath Lab Radiological Technologist (405) SN:[id number] MARCELA B12) Ordering Provid er: GRETCHEN PEREZ [MASS/VOLUM Report Rele ased Date/Time: Feb 22, 2021 10:13 AM E] IN SERUM Reporting L ab: [facility] OR PLASMA [address] [facility] [address] Performing Lab: [facility] [address] [facility] [address] TSH THYROTROPIN 3.14 0.35 - 02/22 Specimen Typ e: SERUM ST. [UNITS/VOLU 5.00 /2020 Comment: Te sts performed on Gonsalez Cath Lab Radiological Technologist (405) SN:[id number] MARCELA PR] IN Ordering Provid er: GRETCHEN PEREZ SERUM OR Report Release d Date/Time: Feb 22, 2021 10:13 AM PLASMA Reporting Lab: [facility] [address] [place] [facility] [place] [address] Performing Lab: [facility] [address] [facility] [address] Encounters Combined list of: 1) Encounters from Department of Veterans Affairs facilities going back up to the last 18 months. 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
wi th Provide r Comment s: Long-te rm current use of anticoa gulant (SCT [id number] ) Outpatient 02/22 WHIT E Encounter [id number] [facility] OFFICE O/P 89165-9 Diagnos [place], [place] 02/22 ST. EST MOD [id number] is: MOSES JOHNSBU 30-39 MIN 29 ICD-10- RY CBOC CM I25.10 Athscl heart disease of [place] coronar y artery w/o ang pctrs<b r/>with Provide r Comment s: Atheros cleroti c Heart Disease of [place] Coronar y Artery without Angina Pectori s Outpatient 02/24 WHIT E Encounter [id number] [facility] MTMS BY Diagnos GIYANIRABINGO, 02/24 WHITE PHARM EST [id number] is: MILTON RI DORI 15 MIN ICD-10- JCT CM [facility] Z79.01 correction (curren t) use of anticoa gulants
wi th Provide r Comment s: Long-te rm current use of anticoa gulant (SCT [id number] ) Outpatient [id number] 03/02 WHIT E [id number] [facility] 39354-3.40 Diagnos RADHA, 04/12 ST. ELA [id number] is: [facility] ICD-10- RY CBOC TEST CM H90.3 Sensori neural hearing loss, bilater al
with Provide r Comment s: Asymmet rical sensori neural hearing loss (SNOMED CT 6143389 09) Outpatient [id number] 04/15 WHIT E Encounter [id number] /2021 [facility] OFFICE O/P 41877-2.40 Diagnos PETTIGLIO, 04/28 ST. EST [id number] is: SAMMY A JOHNSB U MINIMAL 02 ICD-10- RY CBOC PROB CM Z23 Encount er for immuniz ation<b r/>with Provide r Comment s: Encount er for Immuniz ation HC PRO 62011-7.40 Diagnos NICOLA LEONE 04/29 W JIMBO PHONE CALL [id number] is: AN RIVE R 11-20 MIN ICD-10- JCT CM [facility] Z79.01 correction (curren t) use of anticoa gulants
wi Provide r Comment s: Long-te rm current use of anticoa gulant ([facility] [id number] 03) Outpatient [id number] 07/04 WHIT E Encounter [id number] [facility] Outpatient [id number] 03/03 WHIT E Encounter [id number] [facility] Social History Combined list of available smoking, tobacco, and other social history from Department of Defense andVeterans Affairs facilities. Social History Response Date Comment Source Type Tobacco smoking VA-TOBACCO FORMER 02/22/2021 [facility]OC status NHIS USER History of tobacco VA-TOBACCO QUIT 1 02/22/2021 [facility] CBOC use TO < 5 YRS History of tobacco VA-TOBACCO FORMER 03/04/2020 [facility] CBOC use USER History of tobacco VA-TOBACCO USE 03/21/2018 [facility] use PEDIATRIC PHYSIATRIST NO History of tobacco CURRENT SMOKER 01/16/2018 [facility] use History of tobacco CURRENT SMOKER 03/28/2017 [facility] VA use CLINIC History of [...] Source 01/15/2019 ADVANCE DIRECTIVE DISCUSSION STEPHANIE HERNANDEZ [facility]
--- OUTSIDE RECORDS SUMMARY | 2022-05-23 11:06 | XMS_ITS | Clinical Summary ---
:1945 Author Organization [facility] Address [address] [place] [address] Care Team Providers Name Role Phone Jennifer Gomez Bunny TRUCK CHAUFFEUR Primary Care Provider Encounters Date Type Specialty [...] 3 Months Results T3 FREE (04/24/2022 11:50 EDT) P athologist Signature T3, Free 2.8 2.8 - 5.3 04/25/2022 [facility] MEDICAL pg/mL 21:09 EDT CENTER LABORATORY SERVICES Specimen Anatomical Collection Method Collection Time Receive d Time (Source) Location / / Volume Laterality Blood VENOUS BLOOD / 04/24/2022 11:50 2 Unknown EDT 20:27 EDT Provider Outr Resulting Lab CHEMISTRY & BLOOD GAS CHLOE IBARRA Performing Organization Address City/State/ZIP Code Phon e Number [facility] [address] [place] [address] SERVICES from Last 3 Months Insurance Payer Benefit Plan Subscriber ID Effective Phone Address Typ e / Group Dates MUTUAL OF MUTUAL OF [id number] 2018-Prese [id number] [place] [address] MEDICARE MEDICARE A/B [id number] 2011-Pres [address] Medicare GL ent [id number] [phone] (Work) Jovany Hi Personal/Family Self [address] (Home) [place] [address] (Work) Jovany Hi Personal/Family Self [address] (Home) [place] [address] (Work) Care Teams Trials Manager Relationship Specialty Start Date End Date Jennifer Gomez NP PCP - General 05/10/15 [facility] [address] [place], [place] [address] (work)
--- OUTSIDE RECORDS SUMMARY | 2022-05-23 11:06 | XMS_ITS | Encounter Summary ---
:1945 Author Organization [facility] [address] Care Team Providers Name Role Phone France Lam MD Primary Care Provider Encounter Details Date Type Department Care Team Description 01/09/2020 TH Visit Neurology at [facility] [place] [place] Efrain Nicole, Intracranial hemorrhage; (TeleHealth) [facility] ESTEFANY Tobacco abuse; Drive [facility] Cerebrovascular accident (CV A) due to embolism of right posterior cerebral artery [facility] [address] NEUROLOGY [phone] [place] [address] Social History Tobacco Use Types Packs/Day Years Used Date Smoking Tobacco: Every Day Cigarettes 0.5 Cigars Sex Assigned at Date Recorded Not on file documented as of this encounter Progress Notes Efrain Nicole PA - 01/09/2020 9:00 AM EDT [facility] [place] [address] t: [phone] / f: [phone] TELEPHONE ENCOUNTER Date of Appointment: 01/09/2020 I [...] cardiology - had f/u head CT at [facility] which was stable with resolving known hemorrhage - has not resumed smoking -has been in touch with Dr. Sanchez for Watchman, deferred for duration of anticoagulation for PE Modified Buck Scale (MRS) 0: No symptoms at all [...] -advised vision/eye exam with his local provider ([facility]); consider referral to neuro-ophthalmology here [...] Visit Endocrinology Alan Terrell MD [facility] ER ENDOCRINOLOGY [place], [place] [address] (Wo rk) documented as of this encounter Visit Diagnoses Diagnosis Intracranial hemorrhage Unspecified intracranial hemorrhage Tobacco abuse Tobacco use disorder Cerebrovascular accident (CVA) due to em bolism of right posterior cerebral artery documented in this encounter Care Teams Machine Folder Relationship Specialty Start Date End Date France Lam MD PCP - General 05/02/13 02/04/20 [address] [place] [address] documented as of this encounter
--- OUTSIDE RECORDS SUMMARY | 2022-05-23 11:06 | XMS_ITS | Encounter Summary ---
:1945 Author Organization [facility] [place] [address] Care Team Providers Name Role Phone France Lam MD Primary Care Provider Encounter Details Date Type Department Care Team Description 01/16/2020 Telephone Vascular Surgery at [facility] Ryan Tran, [place] [address] Social History Tobacco Use Types Packs/Day [...] the 6 month fidelina. Ryan Tran, MSN, RN-, NCTTP Tobacco Machine Clipper [facility] Pager #[phone] documented in this encounter Plan of Treatment Upcoming Encounters Date Type Specialty Care Team Description 06/30/2022 Office Visit Endocrinology EchtAlan MD [facility] ER DR ROSARIO [place], [place] [address] (Wo rk) documented as of this encounter Visit Diagnoses Not on filedocumented in this encounter Care Teams Family Centered Specialist Relationship Specialty Start Date End Date France Lam MD PCP - General 05/02/13 02/04/20 [address] [place] [address] documented as of this encounter
--- OUTSIDE RECORDS SUMMARY | 2022-05-23 11:06 | XMS_ITS | Encounter Summary ---
:1945 Author Organization [facility] [place] [address] Care Team Providers Name Role Phone France Lam MD Primary Care Provider Reason for Visit Reason Onset Date Comments TeleHealth 12/22/2019 Appt 12/23/19 Encounter Details Date Type Department Care Team Description 12/22/2019 Telephone Neurosurgery at [facility] Alfreda Salas TeleHealth (Appt [facility] Devin Sebastian, MARKETING TEAM LEAD 12/23/19) [place] [address] [facility] [phone] [place] [address] Social History Tobacco Use Types Packs/Day [...] 06/30/2022 Office Visit Endocrinology Alan Terrell MD [facility] ER DR [place]E [place], [place] [address] (Wo rk) documented as of this encounter Visit Diagnoses Not on filedocumented in this encounter Care Teams Director Of Residence Life Relationship Specialty Start Date End Date France Lam MD PCP - General 05/02/13 02/04/20 [address] [place] [address] documented as of this encounter
--- OUTSIDE RECORDS SUMMARY | 2022-05-23 11:06 | XMS_ITS | Encounter Summary ---
:1945 Author Organization [facility] [place] [address] Care Team Providers Name Role Phone Jovany Lott MD Primary Care Provider Encounter Details Date Type Department Care Team Description 10/12/2020 Notes Only Cardiology at [facility] Willow Callejas RN [facility] [place] [address] Social History Tobacco Use Types Packs/Day [...] want totalk to my doctor at the [place] and do a little more research before I decide what to do, I'm a little afraid of it. He notes that he has a scheduled clinic visit in November and will discuss with Dr. Garduno at that time. documented in this encounter Plan of Treatment Upcoming Encounters Date Type Specialty Care Team Description 06/30/2022 Office Visit Endocrinology Alan Terrell MD [facility] DR [address]AR[address] [place], [place] [address] (Wo rk) documented as of this encounter Visit Diagnoses Not on filedocumented in this encounter Care Teams Market Research Specialist Relationship Specialty Start Date End Date Jovany Lott MD PCP - General Family Medicine 02/05/20 [address] [place] [address] documented as of this encounter
--- OUTSIDE RECORDS SUMMARY | 2022-05-23 11:06 | XMS_ITS | Encounter Summary ---
:1945 Author Organization [facility] Address [facility] [place] [address] Care Team Providers Name Role Phone France Lam MD Primary Care Provider Encounter Details Date Type Department Care Team Description 12/26/2019 TH Visit Cardiology [place] [facility] Merlin Sanchez V, Claudication from peripheral vascular disease, left ; (TeleHealth) [facility] Hyperlipidemia, unspecified hyperlipidem ia type; Drive [facility] Acute ST elevation myocardia l infarction (STEMI) of inferior wall; [place], [place] CENTER Acute systolic CHF (congestive heart reid lure), NYHA class 3, MILVIA/AHA stage C [address] [address] [phone] [place] [address] Social History Tobacco Use Types Packs/Day Years [...] best is to differ this conversation until halfway OAC strategy has been set. Specifically, if this is being treated as a provoked dvt/pe, then would re-evaluate to coordinated with OAC discontinuation. I discussed the above findings with the patient and his both of whom appear to understand and is in agreement with the plan going forward. Merlin Sanchez M.D., F.A.C.C. project consultant Pager 2020 >50% of the 15 minute evaluation was spent in direct conversation/counselling documented in this encounter Plan of Treatment Upcoming Encounters Date Type Specialty Care Team Description 06/30/2022 Office Visit Endocrinology Alan Terrell MD [facility] ENDOCRINOLOGY [place], [place] [address] (Wo rk) documented as of this encounter Visit Diagnoses Diagnosis Claudication from peripheral vascular di sease, left Peripheral vascular disease, unspecified Hyperlipidemia, unspecified hyperlipidem ia type Acute ST elevation myocardial infarction (STEMI) of inferior wall Acute systolic CHF (congestive heart reid lure), NYHA class 3, MILVIA/AHA stage C Acute systolic heart failure documented in this encounter Care Teams Fishing Guide Relationship Specialty Start Date End Date France Lam MD PCP - General 05/02/13 02/04/20 [address] [place] [address] documented as of this encounter
--- OUTSIDE RECORDS SUMMARY | 2022-05-23 11:06 | XMS_ITS | Encounter Summary ---
:1945 Author Organization [facility] Address [address] [place] [address] Care Team Providers Name Role Phone Unavailable Primary Care Provider Unavailable Encounter Details Date Type Department Care Team Description 09/02/2003 Results Only [facility] - Otis Patel MD conversion [address] [facility] [address] [place], [place] [id number] [place] [address] (Wo rk) Social History Tobacco Use Types Packs/Day Years Used Date Smoking Tobacco: Never Assessed Sex Assigned at Date Recorded Not on file documented as of this encounter Plan of Treatment Not on filedocumented as of this encounter Procedures Procedure Name Priority Date/Time Associated Diagnosis Comme [facility] SURGICAL PATHOLOGY Routine 09/02/2003 0:00 EST Re sults for this procedure are i n the results section. documented in this encounter Results SURGICAL PATHOLOGY (09/02/2003 0:00 EST) Component Value Ref Test Analysis Performed At [facility] Method Time Signature Pathology SURGICAL PATHOLOGY REPORT ZAYNAB MARINELLI Report: Reports generated via electronic interface contain catherinea l data; MARLI MENDOZA however they are lacking the format of the original report. Caution should be taken when reading/interpreting unformatte d reports. Name: ? ANGEL LUIS SALINAS ? Accession #: ? [id number] ? : ? 1945 (Age: 58) ??M [...] of the lesion is recommended. ??(Dr. Jaz weller)/[employer] Microscopic Description: ? The epidermis is hype [...] and cords of similar melanocytes that show home agent maturation with descent. 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 ??(Dr. Mascorro)/[employer] Document reviewed and electronically signed by: Mai [...] entirely submitted in one cassette. ??(Dr. Alejandro jacobsen)/[facility] End of Report Specimen (Source) Anatomical Collection Method Collection Time Re ceived Time Location / / Volume Laterality 09/02/2003 09/03/2003 15:2 7 EST Otis Moss MD PATHOLOGY ORDERABLES Performing Organization Address City/State/ZIP Code Phon e Number [facility] [address] [place] [address] SERVICES [facility] [address] [place] [phone] documented in this encounter Visit Diagnoses Not on filedocumented in this encounter
--- OUTSIDE RECORDS SUMMARY | 2022-05-23 11:06 | XMS_ITS | Encounter Summary ---
:1945 Author Organization [facility] [place] [address] Care Team Providers Name Role Phone Jovany Lott MD Primary Care Provider Encounter Details Date Type Department Care Team Description 10/05/2020 Notes Only Cardiology Merlin Sanchez MD [facility] [place] [address] CARDIOLOGY DEPT. [phone] [place], [place] [address] (Wo rk) Social History Tobacco [...] BEKAH-C with [facility] Merlin Sanchez MD [facility] Pager 2020 documented in this encounter Plan of Treatment Upcoming Encounters Date Type Specialty Care Team Description 06/30/2022 Office Visit Endocrinology EchtAlan MD [facility] ER DR MARLENE [place], [place] [address] (Wo rk) documented as of this encounter Visit Diagnoses Not on filedocumented in this encounter Care Teams X Ray Developing Machine Operator Relationship Specialty Start Date End Date Jovany Lott MD PCP - General Family Medicine 02/05/20 [address] [place] [address] documented as of this encounter
--- OUTSIDE RECORDS SUMMARY | 2022-05-23 11:06 | XMS_ITS | Encounter Summary ---
:[address] [facility] Address [address] [place] [address] Care Team Providers Name Role Phone Jennifer Gomez MUSIC JOURNALIST Primary Care Provider Encounter Details Date Type Department Care Team Description 12/22/2019 Lab Requisition [facility] Center Outr Resulting Lab, Pathology & Laboratory Provider [facility] [address] [place], [place] [id number] Social History Tobacco Use Types Packs/Day Years [...] Organization Address City/State/ZIP Code Phon e Number [facility] [address] [place] [address] SERVICES COVID-19 TESTING (12/22/2019 10:38 EDT) Analysis Performed At Patho logist Time Signature COVID-19 Negative Negative 12/23/2019 [facility] rt-PCR Result 19:43 EDT CENTER LABORATORY SERVICES Comment: Negative results do not preclude 2019-nC oV infection and should not be used as the sole basis for treatment or other patient management decisions. Negative results must be combined with clinical observa tions, patient history, and epidemiologi álvaro information. This test was developed and its performa nce characteristics determined by [facility]. It has not been cleared or [...] by the FDA Performed on the [employer] [address] Fast. Performing Lab AB [address] [facility] Lab 12/23/2019 19:43 EDT [facility] SERVICES Specimen Anatomical Collection Method Collection Time Receive d Time (Source) Location / / Volume Laterality Swab 12/22/2019 10:38 12/22/2019 EDT 16:05 EDT Provider Outr Resulting Lab MICROBIOLOGY - GENERAL ORD ERABLES Performing Organization Address City/State/ZIP Code Phon e Number [facility] [address] [place] [address] SERVICES documented in this encounter Visit Diagnoses Not on filedocumented in this encounter Care Teams Gate Operator Relationship Specialty Start Date End Date Jennifer Gomez NP PCP - General 05/10/15 [facility] [address] [place], [place] [address] documented as of this encounter
--- OUTSIDE RECORDS SUMMARY | 2022-05-23 11:06 | XMS_ITS | Encounter Summary ---
:1945 Author Organization [facility] Address [address] [place] [address] Care Team Providers Name Role Phone Jennifer Gomez [employer] Primary Care Provider Encounter Details Date Type Department Care Team Description 02/07/2020 Lab Requisition [facility] Outr Resulting Lab, Pathology & Laboratory Provider [facility] [address] [place] [address] Social History Tobacco Use Types [...] TEST (02/07/2020 7:59 EDT) Analysis Performed At [facility] Time Signature COVID-19 NEGATIVE Negative 02/08/2020 [...] Address City/State/ZIP Code Phon e Number [facility] [place] COVID-19 TESTING (02/07/2020 7:59 EDT) Analysis Performed At [facility] Time Signature COVID-19 NEGATIVE Negative 02/08/2020 [...] Administration's Emergency Use Authorization. Performing Lab [employer] 02/08/2020 17:4 7 EDT [facility] SERVICES Specimen Anatomical Collection Method Collection Time Receive d Time (Source) Location / / Volume Laterality Swab 02/07/2020 7:59 02/07/2020 EDT 23:07 EDT Provider Outr Resulting Lab MICROBIOLOGY - GENERAL ORD ERABLES Performing Organization Address City/State/ZIP Code Phon e Number [facility] [address] [place] [address] [facility] [place] documented in this encounter Visit Diagnoses Not on filedocumented in this encounter Care Teams Medical Secretary Relationship Specialty Start Date End Date Jennifer Gomez NP PCP - General 05/10/15 [facility] [address] [place], [place] [id number] documented as of this encounter
--- OUTSIDE RECORDS SUMMARY | 2022-05-23 11:06 | XMS_ITS | Encounter Summary ---
:1945 Author Organization [facility] Address [address] [place] [address] Care Team Providers Name Role Phone Jennifer Gomez ECHO TECHNOLOGIST Primary Care Provider Encounter Details Date Type Department Care Team Description 01/25/2022 Lab Requisition [facility] Center Outr Resulting Lab, Pathology & Laboratory Provider [facility] [address], [place] [id number] Social History Tobacco Use Types Packs/Day Years [...] BACTERIAL PATHOGENS BY PCR (01/24/2022 14:50 EDT) [facility] Method Time Signature Salmonella PCR Negative Negative 01/25/2022 [facility] MEDICAL 22:03 EDT CENTER LABORATORY SERVICES Shigella/Enteroin Negative Negative 01/25/2022 [facility] vasive E. coli 22:03 EDT CENTER LABORATORY SERVICES HN LAB Negative Negative 01/25/2022 [facility] CAMPYLOBACTER PCR 22:03 EDT CENTER LABORATORY SERVICES Shiga Toxin PCR Negative Negative 01/25/2022 [facility] MEDICAL 22:03 EDT CENTER LABORATORY SERVICES Specimen Anatomical Collection Method Collection Time Receive d Time (Source) Location / / Volume Laterality Feces SPECIMEN FROM 01/24/2022 14:50 01/25/2022 [facility] / Unknown EDT 17:30 EDT Provider Outr Resulting Lab MICROBIOLOGY - GENERAL ORD ERABLES Performing Organization Address City/State/[facility] [[email or web address]] Code Phon e Number [facility] MEDICAL CENTER LABORATORY [address] [place] [address] SERVICES documented in this encounter Visit Diagnoses Not on filedocumented in this encounter Care Teams Camouflage Assembler Relationship Specialty Start Date End Date Jennifer Gomez, NAMITA PCP - General 05/10/15 [facility] [address] [place] [address] documented as of this encounter
--- OUTSIDE RECORDS SUMMARY | 2022-05-23 11:06 | XMS_ITS | Encounter Summary ---
:1945 Author Organization [facility] [place] [address] Care Team Providers Name Role Phone France Lam MD Primary Care Provider Reason for Visit Reason Onset Date Comments TeleHealth 01/12/2020 Encounter Details Date Type Department Care Team Description 01/12/2020 Telephone Neurosurgery at [facility] Alfreda Salas, TeleHealth [facility] [place] [address] [facility] [phone] [place], [place] [address] (Wo rk) Social History Tobacco [...] 06/30/2022 Office Visit Endocrinology Alan Terrell MD [facility] ER ENDOCRINOLOGY [place], [place] [address] (Wo rk) documented as of this encounter Visit Diagnoses Not on filedocumented in this encounter Care Teams Insights Manager Relationship Specialty Start Date End Date France Lam MD PCP - General 05/02/13 02/04/20 [address] [place] [address] documented as of this encounter
--- OUTSIDE RECORDS SUMMARY | 2022-05-23 11:06 | XMS_ITS | Encounter Summary ---
:1945 Author Organization [facility] Address [address] [place] [address] Care Team Providers Name Role Phone Jennifer Gomez SAMPLE EXAMINER Primary Care Provider Encounter Details Date Type Department Care Team Description 02/15/2022 Lab Requisition [facility] Outr Resulting Lab, Pathology & Laboratory Provider [facility] [address] [id number] Social History Tobacco Use Types Packs/Day Years [...] Free 9.3 (H) 2.8 - 5.3 02/15/2022 [facility] MEDICAL pg/mL 21:51 EDT CENTER LABORATORY SERVICES Specimen Anatomical Collection Method Collection Time Receive d Time (Source) Location / / Volume Laterality Blood VENOUS BLOOD / 02/15/2022 10:37 Unknown EDT 21:20 EDT Provider Outr Resulting Lab CHEMISTRY & BLOOD GAS CHLOE Duncan Organization Address City/State/ZIP Code Phon e Number [facility] LABORATORY [address] [place] [address] SERVICES documented in this encounter Visit Diagnoses Not on filedocumented in this encounter Care Teams Pig Lead Melter Helper Relationship Specialty Start Date End Date Jennifer Gomez, SAMPLE EXAMINER PCP - General 05/10/15 [facility] [address] [place] [address] documented as of this encounter
--- OUTSIDE RECORDS SUMMARY | 2022-05-23 11:06 | XMS_ITS | Encounter Summary ---
:[address] [facility] Address [address] [place] [address] Care Team Providers Name Role Phone Jennifer Gomez MEDICAL LAB SPECIALIST Primary Care Provider Encounter Details Date Type Department Care Team Description 08/26/2021 Lab Requisition [facility] Najma Valladares for other Pathology & M, DO general examination Laboratory Medicine - [address] [employer] [facility] [address] [place] [phone] Social History Tobacco Use Types Packs/Day Years [...] At Signature Note to The following 09/02/2021 [facility] MEDICAL Patient pathology results 13:09 EST CENTER have been interpreted LABORATO RY by your pathologist SERVICES and may be available to you before your health provider has had the opportunity to review them. Please allow time for your provider to receive these results and explore management options, if applicable. Final A. RECTUM, POLYP, BIOPSY : 09/02/2021 [facility] MEDICAL Diagnosis - Polypoid submucosal anal glands. 13:09 EST CENTER - Overlying rectal mucosa negative for dysplasia. LABORATORY - See comment. SERVICES Diagnosis This rectal polyp shows a cantor bmucosal collection of anal duct glands causing a polypoid configuration. The morphology and the immunohistochemical profile are consistent with a benign (non-neoplastic) pro 09/02/2021 [facility] MEDICAL Comment cess. Varnish Blender slides of this case were reviewed at the gastrointestinal/liver intradepartmental consultation conference. : [facility] LABORATORY ANTIBODY(CLONE)(BLOCK):RESULT SERVICES CK7 (RN7, Leica) (A1): Strongly positive PAX-8 (MRQ-50, [place]) (A1): Negative NKX3.1 (Rabbit Polyclonal, [employer]) (A1): Negative GATA3 (L50-823, [place]) (A1): Negative NOTE: One or more of [...] characteristics have been de termined by [facility] and/or by the referring laboratory. [...] laboratory testing. Attestation By the signature 09/02/2021 [facility]ICA L Electronically below, the attending 13:09 [facility] signed by physician certifies LABORATORY Jacobo, that they have 1) SERVICES Tory roberts MD on personally conducted 09/02/2021 at a gross and/or 1309 microscopic examination of the described specimen(s), and/or personally interpreted the results of laboratory testing of the described specimen(s), and 2) personally rendered or confirmed the above diagnosis. Clinical Flex sigmoidoscopy; 09/02/2021 [facility] AL History diverticulosis, polyp : [facility] LABORATORY SERVICES Gross A. 09/02/2021 [facility]ICAL Description Received in formalin mark d with proper patient identification (initials M, J) and rectal polyp is a marr-brown polyp, 0.6 x 0.5 x 0.4 cm. Bisected and entirely submitted in A1. 13: [facility] LABORATORY ESTEFANY NICHOLS(ASCP) 08/26/2021 16:41 SERVICES Performing [facility] 09/02/2021 [facility] AL Lab 13:09 [facility] LABORATORY SERVICES Scanned 09/02/2021 [facility] MED[facility] Images 13:09 [facility] LABORATORY SERVICES Specimen Anatomical Collection Method Collection Time Receive d Time (Source) Location / / Volume Laterality Tissue SPECIMEN FROM 08/26/2021 8:45 08/26/2021 [facility] / Unknown EST 16:37 EST Najma Valladares DO PATHOLOGY ORDERABLES Performing Organization Address City/State/ZIP Code Phon e Number [facility] LABORATORY [address] [place] [address] SERVICES documented in this encounter Visit Diagnoses Diagnosis Encounter for other general examination documented in this encounter Care Teams Sheriffs Detective Relationship Specialty Start Date End Date Jennifer Gomez NP PCP - General 05/10/15 [facility] [address] [place], [place] [address] documented as of this encounter
--- OUTSIDE RECORDS SUMMARY | 2022-05-23 11:06 | XMS_ITS | Encounter Summary ---
:1945 Author Organization [facility] [place] [address] Care Team Providers Name Role Phone Jovany Lott MD Primary Care Provider Reason for Visit Consultation (Routine) - Closed Specialty Diagnoses / Procedures Referred By Contact Refer red To Contact Cardiology Diagnoses ST elevation (STEMI) myocardial infarction of unspecified site Hyperlipidemia, unspecified Dawit Mejia MD [place] [address] [place] [address] [address] [place], [place] CARDIOLOGY D EPT [address] [place] [address] Fax: Referral ID Status Reason Start Date Expiration Date Visits V isits Requested Authorized [id number] Closed Consult, Test 02/10/2020 02/09/2021 [facility] PCP Updated and/or Approved Encounter Details Date Type Department Care Team Description 03/12/2020 TH Visit Cardiology at [facility] Melina Payan Fredrickson type IIa hyperli poproteinemia; (TeleHealth) [facility] Hyperglycemia; 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 [...] medications for this visit. 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 He has multiple cardiovascular risk factors including peripheral artery disease, hyperlipidemia (elevated LDL, depressed HDL), a 18-dhdn-cpov history of smoking, and prediabetes. Jovany quit [...] but Jovany replied: I can't drive to [facility] every 2 weeks for that. I explained [...] Alan Terrell MD [facility] ENDOCRINOLOGY [place], [place] [address] (Wo rk) documented as of this encounter Visit Diagnoses Diagnosis Tiny type IIa hyperlipoproteinemi a Pure hypercholesterolemia Hyperglycemia Other abnormal glucose Elevated TSH Other abnormal blood chemistry Hypothyroidism, acquired Unspecified hypothyroidism documented in this encounter Care Teams Bilingual Instructor Relationship Specialty Start Date End Date Jovany Lott MD PCP - General Family Medicine 02/05/20 [address] [place] [address] documented as of this encounter
--- OUTSIDE RECORDS SUMMARY | 2022-05-23 11:06 | XMS_ITS | Encounter Summary ---
:1945 Author Organization [facility] [place] [address] Care Team Providers Name Role Phone Jovany Lott MD Primary Care Provider Encounter Details Date Type Department Care Team Description 11/10/[address] [facility] Wilver Davey [facility] [place] [address] Social History Tobacco Use Types Packs/Day [...] 06/30/2022 Office Visit Endocrinology Alan Terrell MD [facility] ER ENDOCRINOLOGY [place], [place] [address] (Wo rk) documented as of this encounter Visit Diagnoses Not on filedocumented in this encounter Care Teams Mogul Operator Relationship Specialty Start Date End Date Jovany Lott MD PCP - General Family Medicine 02/05/20 [place] [id number] documented as of this encounter
--- OUTSIDE RECORDS SUMMARY | 2022-05-23 11:06 | XMS_ITS | Encounter Summary ---
:1945 Author Organization [facility] Address [facility] [place] [address] Care Team Providers Name Role Phone France Lam MD Primary Care Provider Reason for Visit Reason Onset Date Comments TeleHealth 01/08/2020 Appt 01/09/20 Encounter Details Date Type Department Care Team Description 01/08/2020 Telephone Neurology at [facility] Efrain Nicole PA TeleHealth (Appt [facility] [address] [place] [address] NEUROLOGY [phone] [place], [place] [address] (Wo rk) Social History Tobacco [...] Alan Terrell MD [facility] ER ENDOCRINOLOGY [place], [place] [address] (Wo rk) documented as of this encounter Visit Diagnoses Not on filedocumented in this encounter Care Teams Senior Linux Systems Engineer Relationship Specialty Start Date End Date France Lam MD PCP - General 05/02/13 02/04/20 [address] [place] [address] documented as of this encounter
--- OUTSIDE RECORDS SUMMARY | 2022-05-23 11:06 | XMS_ITS | Encounter Summary ---
:1945 Author Organization [facility] [place] [address] Care Team Providers Name Role Phone France Lam MD Primary Care Provider Encounter Details Date Type Department Care Team Description 12/23/2019 TH Visit Neurosurgery at [facility] Alfreda Salas Intracranial (TeleHealth) [facility] C, LONG WALL SHEAR [place] [address] [phone] [place] [address] Social History Tobacco Use Types Packs/Day Years Used Date Smoking Tobacco: Every Day Cigarettes 0.5 Cigars Sex Assigned at Date Recorded Not on file documented as of this encounter Progress Notes Alfreda Salas, LONG WALL SHEAR OPERATOR - 12/23/2019 1:30 PM EDT Images [...] week follow up head CT at [facility], showing slight decrease in size [...] weeks which may be done at [facility] with follow up TOV [facility]. Head CT 12/18/19 Assessment and [...] Office Visit Endocrinology Alan Terrell MD [facility] ER ENDOCRINOLOGY [place], [place] [address] (Wo rk) documented as of this encounter Visit Diagnoses Diagnosis Intracranial hemorrhage Unspecified intracranial hemorrhage documented in this encounter Care Teams Turbo Generator Oiler Relationship Specialty Start Date End Date France Lam MD PCP - General 05/02/13 02/04/20 [address] [place] [address] documented as of this encounter
--- OUTSIDE RECORDS SUMMARY | 2022-05-23 11:06 | XMS_ITS | Encounter Summary ---
:1945 Author Organization [facility] Address [address] [place] [address] Care Team Providers Name Role Phone Jennifer Gomez TOILET AND LAUNDRY SOAP SUPERVISOR Primary Care Provider Encounter Details Date Type Department Care Team Description 03/19/2019 Results Only [facility] Angel Luis Lott MD [phone] [address] [place], [place] [id number] (Wo rk) Social History Tobacco Use Types [...] Component Value Ref Test Analysis Performed At [facility] Method Time Signature Pathology SURGICAL PATHOLOGY REPORT [facility] MEDICAL Report: Reports generated via electronic interface contain [facility] data; CENTER however they are lacking the format of the original report. LABORATORY Caution should be taken when reading/interpreting unformat pepper reports. SERVICES Name: ? ANGEL LUIS HI ? Accession #: ? [id number] ? : ? 1945 (Age: 8 3) [...] and entirely submitted in 1. ESTEFANY Brown ([facility]) 03/20/2019 5:33 PM End of Report Specimen Anatomical Collection Method Collection Time Receive d Time (Source) Location / / Volume Laterality 03/19/2019 16:47 03/20/2019 EDT 16:47 EDT Angel Luis Lott MD PATHOLOGY ORDERABLES Performing Organization Address City/State/ZIP Code Phon e Number [facility] [address] [place] [address] SERVICES documented in this encounter Visit Diagnoses Not on filedocumented in this encounter Care Teams Residential Tech Relationship Specialty Start Date End Date Jennifer Gomez NP PCP - General 05/10/15 [facility] [address] [place] [address] documented as of this encounter
--- OUTSIDE RECORDS SUMMARY | 2022-05-23 11:06 | XMS_ITS | Encounter Summary ---
:1945 Author Organization [facility] Address [facility] [address] [place] [address] Care Team Providers Name Role Phone France Lam MD Primary Care Provider Encounter Details Date Type Department Care Team Description 12/22/2019 Telephone Cardiology Riki Stevens, [facility] [place] [address] [facility] [phone] GENERAL INTERNAL MEDICINE [place] [address] (Wo rk) Social History Tobacco Use Types [...] Description 06/30/2022 Office Visit Endocrinology EchtAlan MD [facility] ER DR [place]LEN[place], [place] [address] (Wo rk) documented as of this encounter Visit Diagnoses Not on filedocumented in this encounter Care Teams Inventory Auditor Relationship Specialty Start Date End Date France Lam MD PCP - General 05/02/13 02/04/20 [address] [place] [address] documented as of this encounter
--- OUTSIDE RECORDS SUMMARY | 2022-05-23 11:07 | XMS_ITS | Encounter Summary ---
:1945 Author Organization [facility] [place] [address] Care Team Providers Name Role Phone France Lam MD Primary Care Provider Encounter Details Date Type Department Care Team Description 12/08/2019 Orders Only Neurosurgery at [facility] Natalia Delong, Intracranial [facility] [place] [address] Social History Tobacco Use Types Packs/Day Years Used Date Smoking Tobacco: Every Day Cigarettes 0.5 Cigars Sex Assigned at Date Recorded Not on file documented as of this encounter Plan of Treatment Upcoming Encounters Date Type Specialty Care Team Description 06/30/2022 Office Visit Endocrinology Alan Terrell MD [facility] ER ENDOCRINOLOGY [place], [place] [address] (Wo rk) documented as of this encounter Visit Diagnoses Diagnosis Intracranial hemorrhage Unspecified intracranial hemorrhage documented in this encounter Care Teams Flamer Sealer Relationship Specialty Start Date End Date France Lam MD PCP - General 05/02/13 02/04/20 [address] [place] [address] documented as of this encounter
--- OUTSIDE RECORDS SUMMARY | 2022-05-23 11:07 | XMS_ITS | Encounter Summary ---
:1945 Author Organization [facility] [place] [address] Care Team Providers Name Role Phone France Lam MD Primary Care Provider Encounter Details Date Type Department Care Team Description 12/18/2019 Ancillary Procedure Radiology Library at Debi Lam [facility] [address] [place] [address] [place] [address] [phone] Social History Tobacco Use Types Packs/Day Years Used Date Smoking Tobacco: Every Day Cigarettes 0.5 Cigars Sex Assigned at Date Recorded Not on file documented as of this encounter Plan of Treatment Upcoming Encounters Date Type Specialty Care Team Description 06/30/2022 Office Visit Endocrinology Alan Terrell MD [facility] DR [place], [place] [address] (Wo rk) documented as of [...] is for storage only. France Lam MD [facility] FILM LIBRARY ORDERABLES Performing Organization Address City/State/ZIP Code Phon e Number [facility] [place], [place] documented in this encounter Visit Diagnoses Not on filedocumented in this encounter Care Teams Sales Representative Door To Door Relationship Specialty Start Date End Date France Lam MD PCP - General 05/02/13 02/04/20 [address] [place] [address] documented as of this encounter
--- OUTSIDE RECORDS SUMMARY | 2022-05-23 11:07 | XMS_ITS | Encounter Summary ---
:1945 Author Organization [facility] [place] [address] Care Team Providers Name Role Phone France Lam MD Primary Care Provider Encounter Details Date Type Department Care Team Description 12/08/2019 Telephone Neurosurgery at [facility] [address] Social History Tobacco Use Types Packs/Day Years Used Date Smoking Tobacco: Every Day Cigarettes 0.5 Cigars Sex Assigned at Date Recorded Not on file documented as of this encounter Miscellaneous Notes Telephone Encounter - Elza Bradshaw - 12/22/2019 6:[address] in eDH Telephone Encounter - Elza Bradshaw - 12/18/2019 3:43 PM EDT Left message at [facility] requesting they call back to advise if patient has been scheduled for CT. Telephone Encounter - Sarha Boucher - 12/08/2019 3:[address] order to [facility] to schedule, 12/16-12/18 for 12/22 TOV scheduled w/[facility] Telephone Encounter - Sarah Boucher - 12/08/2019 9:50 AM EDT RN, please put in CT order external=Josue Pt's called not able to come to [facility] on 12/[address] to have CT locally at [facility] call w/results. documented in this encounter Plan of Treatment Upcoming Encounters Date Type Specialty Care Team Description 06/30/2022 Office Visit Endocrinology GenietAlan MD [facility] MEDICAL [facility] ER ENDOCRINOLOGY [place], [place] [address] (Wo rk) documented as of this encounter Visit Diagnoses Not on filedocumented in this encounter Care Teams Doggy Daycare Activities Director Relationship Specialty Start Date End Date France Lam MD PCP - General 05/02/13 02/04/20 [address] [place] [address] documented as of this encounter
--- OUTSIDE RECORDS SUMMARY | 2022-05-23 11:08 | XMS_ITS | Encounter Summary ---
:1945 Author Organization [facility] [place] [address] Care Team Providers Name Role Phone France Lam MD Primary Care Provider Encounter Details Date Type Department Care Team Description 11/30/2019 Orders Only Cardiology [facility] [place] [address] Social History Tobacco Use Types Packs/Day Years Used Date Smoking Tobacco: Every Day Cigarettes 0.5 Cigars Sex Assigned at Date Recorded Not on file documented as of this encounter Plan of Treatment Upcoming Encounters Date Type Specialty Care Team Description 06/30/2022 Office Visit Endocrinology EchtAlan MD [facility] ENDOCRINOLOGY [place], [place] [address] (Wo rk) documented as of [...] fajardo ? (Age): 1945(74y) Med Rec#: ? [id number] ?Sex: ?M ? Site Loc: ? Ht / Wt: ??(cm)/ (kg) ? Pt. Loc: ? Study Date: ?? 11/29/2019 ?Pt. Type: Tape: ? Referring: Faustino Garduno Reading: Dawit Mejia ([id number]) Manager Of Production: USNereyda Lens Engraver: Cedric Eric ([id number]) Interpreting Fellow: Cedric Eric ([phone]) Diagnosis: SUMMARY: 1. Limited bedside echocardiogram perfor med by partition assembly machine operator hooker machine tender for hypotension following inferior STEMI . 2. [...] ? Mid-Inferior ?Akinetic ? Mid-Inferoseptal ?Hypokinetic ? [place]-Septal ? Normal ? [place]-Anterior ? Normal ? [place]-Lateral ?Normal ? [place]-Inferior ? Hypokinetic ? [place]-Tip ?Normal ? This report has been electronically sign ed by: _ Dawit Sebastian. MD Roberto ? 11/30/2019 12: 53:59 Images reviewed and interpretation veraustin casey [facility] Cardiac Ultrasound Laboratory Procedure Note Dawit Mejia MD - 11/30/2019Formatti ng of this note might be different from the original. Procedure: Transthoracic Echocardiogram Patient: domenica ACOSTA(Age): [age]y) Med Rec#: [id number] Sex: M Site Loc: Ht / Wt: (cm)/ (kg) Pt. Loc: Study Date: 11/29/2019 Pt. Type: Tape: Referring: Faustino Garduno Reading: Dawit Mejia ([id number]) Manager Of Production: [employer] Lens Engraver: Cedric Eric ([id number]) Interpreting Fellow: Cedric Eric ([phone]) Diagnosis: SUMMARY: 1. Limited bedside echocardiogram perfor med by partition assembly machine operator hooker machine tender for hypotension following inferior STEMI . 2. [...] Normal Mid-Posterolateral Akinetic Mid-Inferior Akinetic Mid-Inferoseptal Hypokinetic [place]-Septal Normal [place]-Anterior Normal [place]-Lateral Normal [place]-Inferior Hypokinetic [place]-Tip Normal This report has been electronically sign ed by: _ Dawit Mejia MD 11/30/2019 12:53:59 Images reviewed and interpretation [facility] Cardiac Ultrasound Laboratory Unknown ECHO ORDERABLES documented in this encounter Visit Diagnoses Not on filedocumented in this encounter Care Teams Radiator Core Tester Relationship Specialty Start Date End Date France Lam MD PCP - General 05/02/13 02/04/20 [address] [place] [address] documented as of this encounter
--- OUTSIDE RECORDS SUMMARY | 2022-05-23 11:08 | XMS_ITS | Encounter Summary ---
:1945 Author Organization [facility] [place] [address] Care Team Providers Name Role Phone France Lam MD Primary Care Provider Reason for Referral Consultation (Routine) - Specialty Diagnoses / Procedures Referred By Contact Refer red To Contact Cardiology Diagnoses Acute ST elevation myocardial infarction (STEMI) of inferior wall Darrell Glasgow MD [facility] [place] [address] Referral ID Status Reason Start Date Expiration Date Visits V isits Requested Authorized [id number] Consult, 12/08/2019 06/05/2020 1 1 Test & Treat Consultation (Routine) - Closed Specialty Diagnoses / Referred By Contact Referred To Contact Procedures Cardiac Rehabilitation Diagnoses ST elevation myocardial infarction involving right coronary artery Gretchen Yoon, Cardiac Rehab, [address] [place] [phone] Fax: Referral ID Status Reason Start Date Expiration Date Visits V isits Requested Authorized [id number] Closed Consult, 12/08/2019 06/05/2020 36 36 Test & Treat Reason for Visit Auth/Cert Specialty Diagnoses / Procedures Referred By Contact Refer red To Contact Diagnoses STEMI (ST elevation myocardial infarction) STEMI Procedures CARDIAC CATHETERIZATION Referral ID Status Reason Start Date Expiration Date Visits Requ ested Visits Authorized [id number] 1 1 Encounter Details Date Type Department Care Team Description 11/29/2019 - Hospital Encounter Cardiac Special YoungBarbra MD [facility] [place] [address] ST elevation myocardial infarction invol ving left main coronary artery; 12/08/2019 Care Unit Paris Lozano MD [facility] [place] [address] ST elevation myocardial infarction invol ving right coronary artery; [facility] Edema of upper extremity; Hospital Intracranial hemorrhage; [facility] Paroxysma l atrial fibrillation; Drive Acute pulmonary embolism, un specified pulmonary embolism type, unspecified whether acute cor pulmonale present; [place], [place] Acute ST elevat ion myocardial infarction (STEMI) of inferior wall [id number] Social History Tobacco Use Types Packs/Day Years [...] Luis Salinas Patient Age: 74 y.o. Language: Marshallese Race: White Ethnicity: Not nor Admit date: [...] months on: antiplatelet therapy at discretion of music journalist - Repeat TTE in 3 months to reassess LV function - Repeat BMP in 1-2 weeks given recent start lisinopril - Referred to lipid clinic for consideration of PCSK-9 inhibitor given STEMI with intolerance of statins - Started on amiodarone this admission for recurrent rapid atrial flutter with rates ~170, recommendcontinued assessment of necessity of rhythm control strategy with music journalist - Amiodarone monitoring recommendations as below - [...] please contact your inpatient physician through the [facility] Sandblasting Supervisor . Issues after hours and on weekends [...] and Compazine. He was transferred directly to [facility] via [facility] for further management. Patient had an emergent PCI with 3 MACARIO stents placed to his RCA, with mild disease of LCX (report pending) at [facility]. He was found to be [...] drip as described above. On arrival at [facility] he was taken for cardiac [...] priority for the procedure was Emergent. [facility] [...] Electronically signed by: [facility] ([phone]), at 11/30/2019 5:[address] Angiogram [place] (Exam End: 11/30/2019 4:36 PM) [...] ??? Penicillins Pt doesn't remember reaction ??? Voiyydf-Efi-Vfa Reductase Inhibitors Stiff neck, upset stomach, back [...] medications at another hospital and then at [facility] you had a stent placed [...] FOR ONE MONTH AND THEN STOP. Your music journalist may tell you to start this medication again after one year. Clopidogrel (Plavix) 75 mg daily - This medication will help prevent clots from forming in your blood, which will help protect the stent that was placed in your heart vessel. TAKE THIS FOR ONE YEAR ANDTHEN DISCUSS WITH YOUR SMOKED MEAT PREPARER WHETHER TO STOP. Amiodarone 400mg twice daily [...] follow up: Your primary care provider and music journalist will manage your blood thinner (apixaban). You do not need lab monitoring of this medication. Diet: Please consume a healthy diet low in cholesterol Follow up Appointments: 12/10/2019 at 3:10PM with PCP Angel Luis Lott Future Appointments Date Time Provider Department Center 12/23/2019 1:30 PM Alfreda Salas APRN [facility] [id number] 12/26/2019 9:40 AM Merlin Sanchez MD [facility] CARD 4A [facility] 12/30/2019 3:40 PM Gretchen Yoon MD [address] Future Appointments and Orders Future Appointments and Orders Future Appointments Provider Department Dept Phone 12/23/2019 1:30 PM Alfreda Salas APRN Neurosurgery at [facility] Arrive at: Home [phone] Please do not come in for this visit. Your provider will call you at the number you provided. 12/26/2019 9:40 AM Merlin Sanchez MD Cardiology at [facility] Arrive at: Home [phone] Please do not come in for this visit. Your provider will call you at the number you provided. 12/30/2019 3:40 PM Gretchen Yoon MD Cardiology at [facility] Arrive at: Home [phone] Please do not come in for this visit. Your provider will call you at the number you provided. Future Orders Complete By Expires Referral to Cardiac Rehab [PZB012 Custom] As directed Process Instructions: If no [...] Referral to Home Health - at DISCHARGE [WIG9921 CPT(R)] As directed Process Instructions: Scheduling Instructions: Comments: DOCUMENTATION FOR VNA SERVICES PATIENT'S LOCATION: Angel Luis Corcoran [address] [address] (home) Lesson Instructor's Name: Self In discussion with the attending physician, it is certified that this patient is under his/her care and that MD, or an SOUND ENGINEERING TECHNICIAN, EMPLOYEE BENEFITS ADMINISTRATOR, or PA who is working directly with him/her, had a tzsa-jz-wokh encounter that meets the physician wzkz-le-avdr encounter requirements with this patient on 12/07/2019. [...] – [facility], PHONE: [phone] FAX: [phone] Start of care: 24-48 hours after hospital [...] France Lam MD [address] / [place] [address] All A agencies which cover the area [...] info: PCP Your PCP: France Lam MD [phone] For questions regarding this document or issues relating to this hospitalization on the Cardiology Service, please contact your inpatient physician through the [facility] Sandblasting Supervisor . Issues after hours and on weekends will be handled by the Drug Inspector on-call. Patient Instructions: Neurology Your Diagnosis: [...] follow-up appointment in the neurology clinic at [facility]. See below for the appointment time. If you do not have an appointment, you will be called with a time/date for this appointment. ??? Primary Care Provider: Please follow up with your Primary Care Provider within one to 2 weeks ofsummit campusrge. General Instructions None Future Appointments and Orders Future Appointments and Orders Future Appointments Provider Department Dept Phone 12/23/2019 1:30 PM Alfreda Salas APRN Neurosurgery at [facility] Arrive at: Home [phone] Please do not come in for this visit. Your provider will call you at the number you provided. 12/26/2019 9:40 AM Merlin Sanchez MD Cardiology at [facility] Arrive at: Home [phone] Please do not come in for this visit. Your provider will call you at the number you provided. 12/30/2019 3:40 PM Gretchen Yoon MD Cardiology at [facility] Arrive at: Home [phone] Please do not come in for this visit. Your provider will call you at the number you provided. Future Orders Complete By Expires Referral to Cardiac Rehab [[id number] Custom] As directed Process Instructions: If no [...] Referral to Home Health - at DISCHARGE [[id number] CPT(R)] As directed Process Instructions: Scheduling Instructions: Comments: DOCUMENTATION FOR VNA SERVICES PATIENT'S LOCATION: [address] [address] (home) Lesson Instructor's Name: Self In discussion with the attending physician, it is certified that this patient is under his/her care and that MD, or an SOUND ENGINEERING TECHNICIAN, EMPLOYEE BENEFITS ADMINISTRATOR, or PA who is working directly with him/her, had a ixch-gs-gufo encounter that meets the physician diah-hr-vfah encounter requirements with this patient on 12/07/2019. [...] – [facility], PHONE: [phone] FAX: [phone] Start of care: 24-48 hours after hospital [...] MD [address] / [place] [address] All A agencies which cover the area [...] contact info: PCP Discharge References/Attachments Atrial Fibrillation (Marshallese) Cardiac Rehabilitation (Marshallese) Heart Failure (Marshallese) Heart Failure: Limiting Sodium (Marshallese) Hemorrhagic Stroke: General Info (Marshallese) Smoking: Stopping (Marshallese) Stroke Rehabilitation: General Info (Marshallese) Pulmonary Embolism (Marshallese) Riki Stevens MD PGY-3, Internal Medicine Cardiology S2, #3211 Associated attestation - Shaka Lagos, Paris Lockett MD - 12/09/2019 4:44 PM EDT Cardiology Attending Discharge Addendum I was the assigned attending music journalist for this clinical encounter. For the purposes [...] complications include novel onset, paroxysmal atrial fibrillation [[id number]: 5] & L-sided diplopia with potential hemineglect [...] contact information: Paris Matt MD MPH [address] [address] (office); Pager #[phone] Email: [email or web address] documented in this encounter Discharge Instructions Patient InstructionsFiRiki de jesus MD - 12/02/2019 9:56 AM EDT Images from the original note were not included. Why you were hospitalized: You had a heart attack. You received clot-busting medications at another hospital and then at [facility] you had a stent placed [...] FOR ONE MONTH AND THEN STOP. Your music journalist may tell you to start this medication again after one year. Clopidogrel (Plavix) 75 mg daily - This medication will help prevent clots from forming in your blood, which will help protect the stent that was placed in your heart vessel. TAKE THIS FOR ONE YEAR ANDTHEN DISCUSS WITH YOUR SMOKED MEAT PREPARER WHETHER TO STOP. Amiodarone 400mg twice daily [...] follow up: Your primary care provider and music journalist will manage your blood thinner (apixaban). You do not need lab monitoring of this medication. Diet: Please consume a healthy diet low in cholesterol Follow up Appointments: 12/10/2019 at 3:10PM with PCP Angel Luis Lott Future Appointments Date Time Provider Department Center 12/23/2019 1:30 PM Alfreda Salas APRN [facility] [id number] [facility] 12/26/2019 9:40 AM Merlin Sanchez MD [facility] CARD 4A [facility] 12/30/2019 3:40 PM Gretchen Yoon MD [facility] CARD 4A [facility] Future Appointments and Orders Future Appointments and Orders Future Appointments Provider Department Dept Phone 12/23/2019 1:30 PM Alfreda Salsa APRN Neurosurgery at [facility] Arrive at: Home [phone] Please do not come in for this visit. Your provider will call you at the number you provided. 12/26/2019 9:40 AM Merlin Sanchez MD Cardiology at [facility] Arrive at: Home [phone] Please do not come in for this visit. Your provider will call you at the number you provided. 12/30/2019 3:40 PM Gretchen Yoon MD Cardiology at [facility] Arrive at: Home [phone] Please do not come in for this visit. Your provider will call you at the number you provided. Future Orders Complete By Expires Referral to Cardiac Rehab [[id number] Custom] As directed Process Instructions: If no [...] Referral to Home Health - at DISCHARGE [[id number] CPT(R)] As directed Process Instructions: Scheduling Instructions: Comments: DOCUMENTATION FOR VNA SERVICES PATIENT'S LOCATION: [address] [address] (home) Lesson Instructor's Name: Self In discussion with the attending physician, it is certified that this patient is under his/her care and that MD, or an SOUND ENGINEERING TECHNICIAN, EMPLOYEE BENEFITS ADMINISTRATOR, or PA who is working directly with him/her, had a bmfx-pt-xaoz encounter that meets the physician dmts-hp-ktcl encounter requirements with this patient on 12/07/2019. [...] – [facility], PHONE: [phone] FAX: [phone] Start of care: 24-48 hours after hospital [...] MD [address] / [place] [address] All A agencies which cover the area [...] info: PCP Your PCP: France Lam MD [phone] For questions regarding this document or issues relating to this hospitalization on the Cardiology Service, please contact your inpatient physician through the [facility] Sandblasting Supervisor . Issues after hours and on weekends will be handled by the Drug Inspector on-call. Patient Instructions: Neurology Your Diagnosis: [...] follow-up appointment in the neurology clinic at [facility]. See below for the appointment time. If you do not have an appointment, you will be called with a time/date for this appointment. ??? Primary Care Provider: Please follow up with your Primary Care Provider within one to 2 weeks ofdischarge. AttachmentsThe following attachments cannot be sent through Care Everywhere. Atrial Fibrillation (Marshallese)Cardiac Rehabilitation (Marshallese)Heart Failure (Marshallese)Heart Failure: Limiting Sodium (Marshallese)Hemorrhagic Stroke: General Info (Marshallese)Smoking: Stopping (Marshallese)Stroke Rehabilitation: General Info (Marshallese)Pulmonary Embolism (Marshallese)documented in this encounter Medications at Time of [...] consulted in the interim. Vikash Rodriguez Pager: [phone] Paris Dodd MD - 12/08/2019 8:57 AM [...] complications include novel onset, paroxysmal atrial fibrillation [PJH6YM9VXJK: 5] & L-sided diplopia with potential hemineglect [...] consulted in the interim. Vikash Rodriguez Pager: [phone] Paris Dodd MD - 12/07/2019 9:55 AM [...] complications include novel onset, paroxysmal atrial fibrillation [FYC1RB7YGHS: 5] & L-sided diplopia with potential hemineglect [...] complications include novel onset, paroxysmal atrial fibrillation [BFS4ZP1NQJI: 5] & L-sided diplopia with potential hemineglect [...] complications include novel onset, paroxysmal atrial fibrillation [NJE4ZE1SOTZ: 5] & L-sided diplopia with potential hemineglect [...] today; additional complications include paroxysmal atrial fibrillation [UWK0XI7MXUN: 4] c/b possible cardioembolic stroke, ICH from [...] length from neck/greatest diameter to back wall: NIUEAN 91, CAU 13: 19 mm CORTES 1, [...] a non-culprit artery. S/P DESx3 in the awfqugga-pa-adkwmw RCA. Aspiration thrombectomy performed, and integrellin bolus [...] complications include novel onset, paroxysmal atrial fibrillation [FFK8UN2AHUW: 5] & L-sided diplopia with potential hemineglect [...] R occipital cardioembolic stroke #Paroxysmal Afib with WF1DWQSS2N score of 5 #New segmental bilateral PEs [...] Glasgow MD PGY1, Internal Medicine Cardiology S2, #7781 Associated attestation - Paris Dodd MD - 12/05/2019 2:59 PM EDT I was the assigned attending music journalist for this clinical encounter. For the purposes [...] 12/04/2019 10:36 AM EDT Office of Care Management(OCM)/Nba Player(CM)/Discharge Planning Service: Cardiology S2 team CM Bernie Alexander,RN,BSN,MA,ACM pgr [phone] Reviewed record and in Cardiology Rounds with MD team,CMs, camera storage clerk, ROTOR BALANCER. Pt is anticipated ready for d/c later [...] AD to his PCP and to any [facility] appt for each to have [...] complications include novel onset, paroxysmal atrial fibrillation [PDM6OB2QNHX: 4] & L-sided diplopia with potential hemineglect [...] a non-culprit artery. S/P DESx3 in the vmynehtc-kt-dkbjmh RCA. Aspiration thrombectomy performed, and integrellin bolus [...] complications include novel onset, paroxysmal atrial fibrillation [AYN7SY0SBNY: 5] & L-sided diplopia with potential hemineglect [...] R occipital cardioembolic stroke #Paroxysmal Afib with JW7TJWRY8M score of 5 - No anticoagulation for [...] Glasgow MD PGY1, Internal Medicine Cardiology S2, #1027 I have seen the patient and reviewed [...] in my clinic. Gretchen Yoon MD Pager [phone] Derian Pascual RN - 12/03/2019 9:29 AM [...] Discharge: None Electronically signed: Derian Pascual RN, Nba Player Pgr: [phone] 12/03/2019 9:29 AM Gretchen Yoon [...] complications include novel onset, paroxysmal atrial fibrillation [MFW9ST3TNFE: 4] & L-sided diplopia with potential hemineglect [...] a non-culprit artery. S/P DESx3 in the bdntifsu-ou-ecptfm RCA. Aspiration thrombectomy performed, and integrellin bolus [...] complications include novel onset, paroxysmal atrial fibrillation [VQZ3JJ2WCEI: 5] & L-sided diplopia with potential hemineglect [...] MRI showed possible cardioembolic stroke #Afib with KZ8OKBCU5Z score of 5 - Stroke Team Consulted; [...] Anticoagulation/Arrhythmia # Novel Onset, Paroxsymal Atrial Fibrillation [LGB2XJ2HFJK: 5] - Hold off anticoagulation for at [...] w straight cath prn # Nutrition - [facility] Diet, 2g Na. -- Hematology/Oncology-- [...] Glasgow MD PGY1, Internal Medicine Cardiology S2, #5916 I have seen the patient and reviewed the resident's above history and I agree with the details as written. The assessment and plan were formulated in discussion with me and I agree with them as documented. Gretchen Yoon MD Pager [phone] Raul Hein RN - 12/03/2019 5:55 AM [...] Negative mcL Appearance UA Clear Clear Spec [place] UA 1.026 1.006 - 1.030 Color UA [...] PGY3 Neurology Resident 12/01/2019 Vascular Neurology Pager [phone] Neurology Attending Attestation I evaluated the patient [...] documented. Deepthi Roman MD Vascular Neurology Standard [facility] Swallow Screen: This screen is [...] diet as medical provider deems appropriate. Consider HOT PIPE GAUGER consult for full evaluation and diet recommendations. [...] complications include novel onset, paroxysmal atrial fibrillation [CRB0TQ4UVZR: 4] & L-sided diplopia with potential hemineglect [...] a non-culprit artery. S/P DESx3 in the ebefqadt-wk-equvbk RCA. Aspiration thrombectomy performed, and integrellin bolus [...] complications include novel onset, paroxysmal atrial fibrillation [NAM2AJ6IHZX: 5] & L-sided diplopia with potential hemineglect [...] Anticoagulation/Arrhythmia # Novel Onset, Paroxsymal Atrial Fibrillation [IYR3SG3LOZD: 5] - Hold off anticoagulation - pending [...] tamsulosin d/t low BP. # Nutrition - [facility] Diet -- Hematology/Oncology-- # Mild [...] Glasgow MD PGY1, Internal Medicine Cardiology S2, #6621 I have seen the patient and reviewed [...] the ICU team. Gretchen Yoon MD Pager [phone] Natalia Claros APRN - 12/02/2019 8:38 AM [...] - We are signing off. Please page [phone] with any questions or concerns. For questions please call [facility] pager [phone] Natalia Claros APRN 12/02/2019 8:38 AM Clinical Documentation Improvement: Active Hospital Problems Diagnosis ??? Acute ST elevation myocardial infarction (STEMI) of inferior wall ??? Intracranial hemorrhage ??? Hyperlipidemia ??? Tobacco abuse ??? Claudication from peripheral vascular disease, left Resolved Hospital Problems No resolved problems to display. Tello Hsu, PRECISION ASSEMBLY INSPECTOR - 12/02/2019 2:06 AM EDT 12/01/192009 Oxygen [...] Scan in afternoon. Upon arrival back in [facility] placed on low flow NC [...] complications include novel onset, paroxysmal atrial fibrillation [CPV8GO6EBFQ: 4] & L-sided diplopia with potential hemineglect for which CVA evaluationto be pursued. Active Problems/Subjective: - 11/28: admitted for inferior STEMI, RV failure requiring pressor - got lytics, aspirin and plavix load, heparin gtt, and eptifibatide. 3 MACARIO stents to RCA. [place] cath - low wedge & CVP so [...] a non-culprit artery. S/P DESx3 in the qnishqjt-on-phjbon RCA. Aspiration thrombectomy performed, and integrellin bolus [...] complications include novel onset, paroxysmal atrial fibrillation [XVQ8SE9ATEA: 4] & L-sided diplopia with potential hemineglect [...] Anticoagulation/Arrhythmia # Novel Onset, Paroxsymal Atrial Fibrillation [JDN7UG2NQFO: 4] - Obtain: TTE - Pending CVA [...] tamsulosin d/t low BP. # Nutrition - [facility] Diet -- Hematology/Oncology-- # Mild [...] MD, PGY1 PGY3, Internal Medicine Cardiology S2, #9386 I have seen the patient and reviewed [...] down the line. Gretchen Yoon MD Pager [phone] ?? Gretchen Yoon MD Pager [phone] Natalia Claros APRN - 12/01/2019 1:33 AM [...] per primary team For questions please call [facility] pager [phone] Natalia Claros APRN 12/01/2019 7:42 AM Clinical Documentation Improvement: Active Hospital Problems Diagnosis ??? Acute ST elevation myocardial infarction (STEMI) of inferior wall ??? Intracranial hemorrhage ??? Hyperlipidemia ??? Tobacco abuse ??? Claudication from peripheral vascular disease, left Resolved Hospital Problems No resolved problems to display. Tello Hsu, PRECISION ASSEMBLY INSPECTOR - 11/30/2019 8:44 PM EDT Respiratory Therapy [...] EDT Narrative:Visited in response to request for Repair Mechanic services. Pt was awake, alert, oriented and in bed. Assessment:Patient coping positively with stresses of illness/hospitalization at this time. Pt says that he is hoping to get better and pt is living with and has children and grandchildren. Pt haspurpose of life and has reason to get getter and to be with family. Outcome: Provided emotional and spiritual support and encouraging presence. Repair Mechanic services accepted.Conversation to build trusting relationship.Provided pastoral [...] complications include novel onset, paroxysmal atrial fibrillation [HJM1BZ8DXWR: 4] & L-sided diplopia with potential hemineglect for which CVA evaluationto be pursued. Active Problems/Subjective: - Overnight, CVP < 12 for which a total of 1 L IVF provided - Today AM, patient complains of subjectively reported, left-sided hemineglect with floaters and diplopia [see: exam]. - Otherwise, c/o neck pain 2/2 R IJ [place] & L radial A line. Otherwise, denies [...] a non-culprit artery. S/P DESx3 in the arlroncr-vg-wywzlr RCA. Aspiration thrombectomy performed, and integrellin bolus [...] complications include novel onset, paroxysmal atrial fibrillation [YPH5LC0AENG: 4] & L-sided diplopia with potential hemineglect [...] Anticoagulation/Arrhythmia # Novel Onset, Paroxsymal Atrial Fibrillation [DLG9IV1WQEJ: 4] - Obtain: TTE to confirm rhythm [...] tamsulosin d/t low BP. # Nutrition - [facility] Diet -- Hematology/Oncology-- # Mild [...] MD, PGY3 PGY3, Internal Medicine Cardiology S2, #9645 I have seen the patient and reviewed [...] down the line. Gretchen Yoon MD Pager [phone] Paola Capps RN - 11/30/2019 6:57 AM EDT PT still requiring 4 of levo, several attempts to titrate down (maps in 70;s) But maps would drop toless than 65. Pt very restless in bed Raising and lowering head denies pain . Integrillin stopped [id number] when bottle complete , urine tea colored [...] PCP: France Lam MD PCP phone #: [phone] Machine Egg Washer: None ID/Chief Complaint: Chest pain History of [...] and Compazine. He was transferred directly to [facility] via [facility] for further management. Patient had an emergent PCI with 3 MACARIO stents placed to his RCA, with mild disease of LCX (report pending) at [facility]. He was found to be persistently hypotensive requiring Levo up to 10mcg/min. He was transferred to [facility] after the cath procedure. Bedside [...] ??? Penicillins Pt doesn't remember reaction ??? Merqjwl-Ugp-Veo Reductase Inhibitors Stiff neck, upset stomach, back pain Family History: Mother: Father: [place] 2 Uncles with MIs Social History: Tobacco: Current active smoker 1 ppd. 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 Vitals: Last value Range [...] in the last 7068 hours. Invalid input(s): [id number] Heme: No results for input(s): LDH, HAPTOGLOBIN, [...] OSH prior to transfer and PCI at [facility]. Massive inferior STEMI with troponin level 20, currently in CVCC due to pressor requirement. BedsideRHC demonstrated evidence of elevated right sided heart failure, but his wedge was wnl. He received 1L bolus with improvement of his blood pressure and reduction of his pressor requirement. PLAN: Admit to Cardiology, S2 Team Pager # [phone] #Inferior STEMI, LEYLA 149 - Resolving EKG [...] inferior STEMI s/p lytic therapy. Transferred to [facility] and underwent successful PCI of the RCA with MACARIO x3. Gretchen Yoon MD Pager [phone] documented in this encounter Procedure Notes Juventino [...] to the planned procedure. Hand Hygiene: The wood heel flap inserter did perform hand hygiene prior to [...] a suspected line-associated infection. Location of Procedure: [facility] Risks and Benefits: The risks [...] to the planned procedure. Hand Hygiene: The wood heel flap inserter did perform hand hygiene prior to [...] side:right An Introducer (PSI Kit) was used. [place]. Insertion Side: right. Insertion Site: internal jugular. Catheter Details: Number of Lumens: 1 Catheter Type: heparin-coated The line was placed over a guidewire. Confirmation of Venous Placement: Venous placement was confirmed by transducing the pressure. Introducer Insertion Attempts: 1 Comments: Floating the [place] Catheter Attempts: 1 Comments: Sterile Dressing: Biopatch [...] better pt back in SR. Please page [phone] for any more cares or concerns Plan [...] complications include novel onset, paroxysmal atrial fibrillation [[id number]: 5]& L-sided diplopia with potential hemineglect for [...] Total Evaluation Minutes, Occupational Therapy: 10 Pager: [phone] FRANCINE Nuñez Occupational Therapy Rehabilitation Department Plan [...] complications include novel onset, paroxysmal atrial fibrillation [[id number]: 5] & L-sided diplopia with potential hemineglect [...] hand rails). Baseline Mobility: Independent. Drives. 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 Time IN / OUT: 5864-7665 Total Evaluation Minutes, Physical Therapy: 15(gtx1) Barbara Baldwin, PT Pager: [phone] Physical Therapy Inpatient Rehabilitation Department Plan of [...] he receives all he needs through the [facility]. Consult refused. Romain Tran, MSN, RN-, [facility] [employer] Carpet Measurer [facility] Pager #[phone] Plan of Care - Romain Oglesby OT [...] complications include novel onset, paroxysmal atrial fibrillation [[id number]: 5] & L-sided diplopia with potential hemineglect [...] and measurable assessment of functional outcome. Pager: [phone] ROMAIN OGLESBY OT 12/03/2019 Occupational Therapy Rehabilitation [...] complications include novel onset, paroxysmal atrial fibrillation [[id number]: 5] & L-sided diplopia with potential hemineglect [...] hand rails). Baseline Mobility: Independent. Drives. 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 Time IN / OUT: 1116-1081 Total Evaluation Minutes, Physical Therapy: 25(eval, gtx1) Barbara Baldwin, PT Pager: [phone] Physical Therapy Inpatient Rehabilitation Department Consult Note [...] Please contact JOHANNA NOBLES RN on pager [phone] or the wound care team at [phone] or pager [phone] skin and wound care concerns or questions. [...] Salinas would be surrogate decision maker per [place] surrogate decision making law. Any patient receiving carspousee at [facility] must abide by [place] law. The hierarchy for surrogate decisionmaking is: [...] The agent with financial power of district attorney or a conservator appointed in accordance [...] Insurance: N/A Prescription Coverage: Yes Preferred Pharmacy: [place], [place] Other: No Primary Care Provider: France Lam MD [phone] Patient/Caregiver Goals of Treatment: Return home Potential Needs for Transition of Care: Rehab/SNF: Based on discussions with the multi-disciplinary healthcare team, the patient would benefit from SNF level of care at discharge. ?? I have met with the patient to discuss discharge planning needs. I have provided the [facility], Officeof Care Management letter from the [employer] pertaining to rehab referrals. I have also provided a letter describing our affiliations within the [facility] and educated them about their right [...] patient [facility] ?? [facility] [address] [place] [id number] ?? [address] , [place] [address] Note routed to [employer] Supervisor who will communicate referrals to facilities and provide any required information. Home Health: If therapies recommend home w/ VNA, the patient has been provided a list of Home Health Agencies/DME vendors which serve their preferred geographic area. A letter describing our affiliations was reviewed with them and they were educated about their right to choose where referrals are placed. Patient requests referral to [facility]. PHONE: [phone] FAX: [phone] Referral routed to the [employer] Supervisor for matching with agency/vendor and to provide [...] Insured w/ Medicare. Gets medications filled at [facility] in [place], [place]. Son to transport at discharge Plan: Discharge dispo depending on patient's physical recovery; SNF vs home w/ VNA. A member of the Care Management team will continue to monitor progress, follow for continuity of care and assist with transition of care planning. Derian Pascual RN Pager: [phone] Plan of Care - Estefani Baeza RN [...] ??? Penicillins Pt doesn't remember reaction ??? Yhbizfy-Mzg-Ibr Reductase Inhibitors Stiff neck, upset stomach, back [...] noncontrast head CT and CT of the [place] at 1600 hrs. We will [...] vision concerning for stroke. Patient presented to [facility] in transfer for a STEMI [...] ??? Penicillins Pt doesn't remember reaction ??? Bvfzgqr-Dnk-Lek Reductase Inhibitors Stiff neck, upset stomach, back [...] file Gets together: Not on file Attends scientology service: Not on file Active member of [...] L Elbow flexion 5/5 R, 5/5 L Process Line Operator LE: 5/5 R, 5/5 L Hip [...] PGY3 Neurology Resident 11/30/2019 Vascular Neurology Pager [phone] Standard [facility] Swallow Screen: This screen is [...] diet as medical provider deems appropriate. Consider HOT PIPE GAUGER consult for full evaluation and diet recommendations. [...] admitted s/p thrombolysis and Cath-Stent to [facility] who developed R sided [...] hours. 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 Severe diffuse disease in the distal vessel. Discrete LCX stenosis in a non-culprit artery. S/P DESx3 in the wfqmszqg-zu-bgkium RCA. Aspiration thrombectomy performed, and integrellin bolus x2+ infusion. Nicardipine given during case due to intermittent sluggish flow. Complications: None documented in this encounter Plan of Treatment Upcoming Encounters Date Type Specialty Care Team Description 06/30/2022 Office Visit Endocrinology Alan Terrell MD [facility] ENDOCRINOLOGY [place], [place] [address] (Wo rk) Scheduled Referrals Name [...] are i n the results section. CT [facility] [place] W STAT 11/30/2019 4:36 Res [...] athologist Signature Potassium 3.9 3.5 - 5.0 [facility] D[facility] mmol/L [facility] LABORATORY Comment: Please note: ??Patients [...] Organization Address City/State/ZIP Code Phon e Number [place] [id number] LAB[address]ORY [address] (ABNORMAL) Hemogram (12/08/2019 12:39 PM EDT) Analysis Performed At Patho logist Time Signature WBC 9.9 (H) 4.0 - 9.5 [place] DOV x10(3)/[facility] LABORATORY RBC 4.51 (L) 4.58 - [place] DOV 5.54 [facility] x10(6)/[facility] LABORATORY Hemoglobin 13.0 (L) 13.7 - [place] DOV 16.5 gm/dL [facility] LABORATORY Hematocrit 40.5 40.5 - [place] DOV 48.5 % [facility] LABORATORY MCV 89.8 82.9 - [place] DOV 93.1 [facility] LABORATORY MCH 28.8 27.5 - [place] DOV 32.1 pg [facility] LABORATORY MCHC 32.1 32.0 - [place] DOV 35.7 gm/dL [facility] LABORATORY Platelets 214 145 - 357 [place] DOV x10(3)/[facility] LABORATORY RDWSD 49.2 (H) 36.0 - [place] DOV 45.0 [facility] LABORATORY RDWCV 15.1 (H) 11.4 - [place] DOV 13.8 % [facility] LABORATORY MPV 12.1 7.6 - 12.9 [place] DOV [facility] LABORATORY nRBC % Auto 0.0 % [facility] LABORATORY nRBC Abs Auto 0.000 0.000 - [place] DOV 0.000 [facility] x10(3)/[facility] LABORATORY Specimen Anatomical Collection Method Collection Time Receive d Time (Source) Location / / Volume Laterality Blood specimen 12/08/2019 12:39 0 (specimen) PM EDT 12:47 PM EDT Resulting Agency Comment Spec In Lab Gretchen Yoon MD HEMATOLOGY ORDERABLES Performing Organization Address City/[facility]/ZIP Code Phon e Number [address] Hepatic Function Panel (12/08/2019 6:28 AM EDT) P athologist Signature Total Protein 6.6 6.1 - 8.0 [facility] DOV gm/dL [facility] LABORATORY Albumin 3.2 3.2 - 5.2 [facility] D[facility] gm/dL [facility]ORATORY AST 18 0 - 39 [facility] ALT 13 0 - 55 [facility] unit/L [facility] LABORATORY Alk Phos 64 40 - 130 [facility] LABORATORY Total 0.4 0.2 - 1.3 [facility] Bilirubin mg/dL [facility] LABORATORY Bili, Direct 0.1 0.0 - 0.3 [facility] D[facility] mg/dL [facility] LABORATORY Specimen Anatomical Collection Method Collection Time Receive d Time (Source) Location / / Volume Laterality Blood specimen Venous Draw / 12/08/2019 6:28 AM 2019 6:36 (specimen) Unknown EDT AM EDT Resulting Agency Comment Spec In Lab Riki Stevens MD CHEMISTRY ORDERABLES Performing Organization Address City/State/ZIP Code Phon e Number [place], [place] [id number] [place] [address] (ABNORMAL) TSH (12/08/2019 6:28 AM EDT) P athologist Signature TSH 5.27 (H) 0.27 - 4.20 [place] DOV mcIU/mL [facility] LABORATORY Specimen Anatomical Collection Method Collection Time Receive d Time (Source) Location / / Volume Laterality Blood specimen Venous Draw / 12/08/2019 6:28 AM 2019 6:36 (specimen) Unknown EDT AM EDT Resulting Agency Comment Spec In Lab Darrell Glasgow MD CHEMISTRY ORDERABLES Performing Organization Address City/State/[place] [address] Potassium (12/08/2019 6:28 AM EDT) P athologist Signature Potassium 4.2 3.5 - 5.0 [facility] mmol/L [facility] LABORATORY Comment: Please note: ??Patients [...] Lagos MD CHEMISTRY ORDERABLES Performing Organization Address City/[facility]/[place] [address] (ABNORMAL) Differential, Automated (12/08/2019 12:43 AM EDT) Patholo gist Method Time Signature Neutrophils % 60.7 % [facility] LABORATORY Neutr Abs (ANC) 6.81 (H) 1.70 - [facility] 6.10 [facility] x10(3)/[facility] LABORATORY Lymphocytes % 23.4 % [facility] LABORATORY Lymphocytes Abs 2.6 0.9 - 3.2 [facility] x10(3)/[facility] LABORATORY Monocytes % 10.0 % [facility] LABORATORY Monocyte Abs 1.1 (H) 0.3 - 0.9 [facility] x10(3)/[facility] LABORATORY Eosinophils % 3.7 % [facility] LABORATORY Eosinophils Abs 0.4 0.0 - 0.4 [facility] x10(3)/[facility] LABORATORY Basophils % 1.2 % [facility] LABORATORY Basophils Abs 0.1 0.0 - 0.1 [facility] x10(3)/[facility] LABORATORY Immature Gran % 1.00 [...] Abs 0.11 (H) 0.00 - 0.04 x10(3)/[facility] LABORATORY Specimen Anatomical Collection Method Collection Time Receive d Time (Source) Location / / Volume Laterality Blood specimen 12/08/2019 12:43 0 (specimen) AM EDT 12:52 AM EDT Resulting Agency Comment Spec In Lab Riki Stevens MD HEMATOLOGY ORDERABLES Performing Organization Address City/State/ZIP Code Phon e Number [place] [id number] LAB[address]ORY Drive (ABNORMAL) Hemogram (12/08/2019 12:43 AM EDT) Analysis Performed At Patho logist Time Signature WBC 11.2 (H) 4.0 - 9.5 [facility] x10(3)/[facility] LABORATORY RBC 4.46 (L) 4.58 - [facility] 5.54 [facility] x10(6)/[facility] LABORATORY Hemoglobin 13.1 (L) 13.7 - [facility] 16.5 gm/dL [facility] LABORATORY Hematocrit 40.5 40.5 - [facility] DOV 48.5 % [facility] LABORATORY MCV 90.8 82.9 - [facility] 93.1 [facility] LABORATORY MCH 29.4 27.5 - [place] DOV 32.1 pg [facility] LABORATORY MCHC 32.3 32.0 - [facility] 35.7 gm/dL [facility] LABORATORY Platelets 215 145 - 357 [facility] x10(3)/[facility] LABORATORY RDWSD 49.8 (H) 36.0 - [place] DOV 45.0 [facility] LABORATORY RDWCV 15.2 (H) 11.4 - [facility] DOV 13.8 % [facility] LABORATORY MPV 12.3 7.6 - 12.9 [facility] LABORATORY nRBC % Auto 0.0 % [facility] LABORATORY nRBC Abs Auto 0.000 0.000 - [place] DOV 0.000 [facility] x10(3)/[facility] LABORATORY Specimen Anatomical Collection Method Collection Time Receive d Time (Source) Location / / Volume Laterality Blood specimen 12/08/2019 12:43 0 (specimen) AM EDT 12:52 AM EDT Resulting Agency Comment Spec In Lab Riki Stevens MD HEMATOLOGY ORDERABLES Performing Organization Address City/State/ZIP Code Phon e Number [address] Magnesium (12/08/2019 12:43 AM EDT) P athologist Signature Magnesium 1.01 0.69 - 1.07 [facility] mmol/L [facility] LABORATORY Specimen Anatomical Collection Method Collection Time Receive d Time (Source) Location / / Volume Laterality Blood specimen 12/08/2019 12:43 0 (specimen) AM EDT 12:52 AM EDT Resulting Agency Comment Spec In Lab Gretchen Yoon MD CHEMISTRY ORDERABLES Performing Organization Address City/State/ZIP Code Phon e Number [address] (ABNORMAL) BMP w/fasting Glucose (12/08/2019 12:43 AM EDT) P athologist Signature Glucose 106 (H) 65 - 99 [facility] Fasting mg/dL [facility] LABORATORY Comment: ?Fasting* Glucose Interpretive [...] of Diabetes Mellitus, Position Statement from the [place] [employer]. ??Diabete s Care, Volume 33, Supplement 1, Jul 2009 BUN 14 10 - 20 mg/dL [facility] LABORATORY Creatinine 1.16 0.80 - 1.50 [...] of body mass or the acutely ill. http://[email or web address]SAnkShopWell eGFR 72 >=60 mL/min/1.73 m?? [facility] LABORATORY Comment: The eGFR was calculated using the CKD-EP I equation. As with all creatinine based estimates of kidney function, eGFR values calculated with the CKD-EPI equation are not accurate in patients wi th acute kidney failure, extremes of body mass or the acutely ill. [email or web address]SAnkf Specimen Anatomical Collection Method Collection Time Receive d Time (Source) Location / / Volume Laterality Blood specimen 12/08/2019 12:43 0 (specimen) AM EDT 12:52 AM EDT Resulting Agency Comment Spec In Lab Gretchen Yoon MD CHEMISTRY ORDERABLES Performing Organization Address [facility]/[place] [address] Heparin (unfractionated) Level (12/08/2019 12:43 AM EDT) athologist Signature Heparin UFH 0.60 IU/mL [facility] LABORATORY Comment: Guidelines for therapeutic unfractionate [...] Lagos MD HEMATOLOGY ORDERABLES Performing Organization Address [facility]/ZIP [place] [address] [facility] LAB[address]ORY Drive Potassium (12/07/2019 8:39 PM EDT) athologist Signature Potassium 4.1 3.5 - 5.0 [facility] mmol/L [facility] LABORATORY Comment: Please note: ??Patients [...] Lagos MD CHEMISTRY ORDERABLES Performing Organization Address City/[facility]/[place] [address] Potassium (12/07/2019 4:02 PM EDT) P athologist Signature Potassium 4.0 3.5 - 5.0 [facility] mmol/L [facility] LABORATORY Comment: Please note: ??Patients [...] Yoon MD CHEMISTRY ORDERABLES Performing Organization Address City/[facility] [place] [address] (ABNORMAL) Hemogram (12/07/2019 4:02 PM EDT) Analysis Performed At Patho logist Time Signature WBC 17.4 (H) 4.0 - 9.5 [place] DOV x10(3)/[facility] LABORATORY RBC 4.58 4.58 - [facility] 5.54 [facility] x10(6)/[facility] LABORATORY Hemoglobin 13.5 (L) 13.7 - [place] DOV 16.5 gm/dL [facility] LABORATORY Hematocrit 40.8 40.5 - [place] DOV 48.5 % [facility] LABORATORY MCV 89.1 82.9 - [place] DOV 93.1 fL [facility] LABORATORY MCH 29.5 27.5 - [place] DOV 32.1 [facility] LABORATORY MCHC 33.1 32.0 - MELINA MONAE 35.7 gm/dL [facility] LABORATORY Platelets 238 145 - 357 [facility] x10(3)/[facility] LABORATORY RDWSD 48.8 (H) 36.0 - [place] MONAE 45.0 [facility] LABORATORY RDWCV 15.0 (H) 11.4 - [facility] DOV 13.8 % [facility] LABORATORY MPV 12.2 7.6 - 12.9 [facility] LABORATORY nRBC % Auto 0.0 % [facility] LABORATORY nRBC Abs Auto 0.000 0.000 - [place] DOV 0.000 [facility] x10(3)/[facility] LABORATORY Specimen Anatomical Collection Method Collection Time Receive d Time (Source) Location / / Volume Laterality Blood specimen 12/07/2019 4:02 PM 020 4:08 (specimen) EDT PM EDT Resulting Agency Comment Spec In Lab Gretchen Yoon MD HEMATOLOGY ORDERABLES Performing Organization Address City/State/[place] [address] EKG 12 Lead (12/07/2019 [...] (Bezet) Calculated P -12 degrees [facility] [place] Calculated R 10 degrees [facility] [place] Calculated T -138 degrees [facility] [place] INTERPRETATION Supraventricular tachycardia MUSE SYSTEM Low voltage [...] athologist Signature Potassium 4.2 3.5 - 5.0 [facility] mmol/L [facility] LABORATORY Comment: Please note: ??Patients [...] Organization Address City/State/Z[place] [address] Heparin (unfractionated) Level (12/07/2019 11:43 AM EDT) athologist Signature Heparin UFH 0.59 IU/mL [facility] LABORATORY Comment: Guidelines for therapeutic unfractionate [...] Lagos MD HEMATOLOGY ORDERABLES Performing Organization Address City/[facility]/ZIP Code Phon e Number [place] [id number] Heparin (unfractionated) Level (12/07/2019 5:20 AM EDT) P athologist Signature Heparin UFH 0.53 IU/mL [facility] LABORATORY Comment: Guidelines for therapeutic unfractionate [...] Lagos MD HEMATOLOGY ORDERABLES Performing Organization Address City/[facility]/ZIP Code Phon e Number [address] (ABNORMAL) Differential, Automated (12/07/2019 5:20 AM EDT) Patholo gist Method Time Signature Neutrophils % 62.4 % [facility] LABORATORY Neutr Abs (ANC) 5.46 1.70 - [facility] 6.10 [facility] x10(3)/[facility] LABORATORY Lymphocytes % 20.3 % [facility] LABORATORY Lymphocytes Abs 1.8 0.9 - 3.2 [facility] x10(3)/[facility] LABORATORY Monocytes % 11.0 % [facility] LABORATORY Monocyte Abs 1.0 (H) 0.3 - 0.9 [facility] x10(3)/[facility] LABORATORY Eosinophils % 4.5 % [facility] LABORATORY Eosinophils Abs 0.4 0.0 - 0.4 [facility] x10(3)/[facility] LABORATORY Basophils % 0.9 % [facility] LABORATORY Basophils Abs 0.1 0.0 - 0.1 [facility] x10(3)/[facility] LABORATORY Immature Gran % 0.90 % [...] Abs 0.08 (H) 0.00 - 0.04 x10(3)/[facility] LABORATORY Specimen Anatomical Collection Method Collection Time Receive d Time (Source) Location / / Volume Laterality Blood specimen 12/07/2019 5:20 AM 020 5:37 (specimen) EDT AM EDT Resulting Agency Comment Spec In Lab Riki Stevens MD HEMATOLOGY ORDERABLES Performing Organization Address City/State/ZIP [place] [address] (ABNORMAL) Hemogram (12/07/2019 5:20 AM EDT) Analysis Performed At Patho logist Time Signature WBC 8.7 4.0 - 9.5 [facility] x10(3)/[facility] LABORATORY RBC 4.20 (L) 4.58 - [facility] 5.54 [facility] x10(6)/[facility] LABORATORY Hemoglobin 12.3 (L) 13.7 - [facility] 16.5 gm/dL [facility] LABORATORY Hematocrit 37.4 (L) 40.5 - MELINA MONAE 48.5 % [facility] LABORATORY MCV 89.0 82.9 - MELINA VILLAN[place]VACK 93.1 [facility] LABORATORY MCH 29.3 27.5 - MELINA VILLANUEVACK 32.1 pg [facility] LABORATORY MCHC 32.9 32.0 - [place] 35.7 gm/dL [facility] LABORATORY Platelets 181 145 - 357 [facility] x10(3)/[facility] LABORATORY RDWSD 47.7 (H) 36.0 - [place] 45.0 [facility] LABORATORY RDWCV 14.8 (H) 11.4 - MELINA VILLAN[place]ACK 13.8 % [facility] LABORATORY MPV 12.3 7.6 - 12.9 [facility] LABORATORY nRBC % Auto 0.0 % [facility] LABORATORY nRBC Abs Auto 0.000 0.000 - MELINA MARSHDOV 0.000 [facility] x10(3)/[facility] LABORATORY Specimen Anatomical Collection Method Collection Time Receive d Time (Source) Location / / Volume Laterality Blood specimen 12/07/2019 5:20 AM 020 5:37 (specimen) EDT AM EDT Resulting Agency Comment Spec In Lab Riki Stevens MD HEMATOLOGY ORDERABLES Performing Organization Address City/[facility]/ZIP Code Phon e Number [address] Magnesium (12/07/2019 5:20 AM EDT) athologist Signature Magnesium 0.89 0.69 - 1.07 [facility]/L [facility] LABORATORY Specimen Anatomical Collection Method Collection Time Receive d Time (Source) Location / / Volume Laterality Blood specimen 12/07/2019 5:20 AM 020 5:37 (specimen) EDT AM EDT Resulting Agency Comment Spec In Lab Gretchen Yoon MD CHEMISTRY ORDERABLES Performing Organization Address City/[facility]/ZIP Code Phon e Number [address] (ABNORMAL) BMP w/fasting Glucose (12/07/2019 5:20 AM EDT) athologist Signature Glucose 100 (H) 65 - 99 [facility] Fasting mg/dL [facility] LABORATORY Comment: ?Fasting* Glucose Interpretive [...] of Diabetes Mellitus, Position Statement from the [place] [employer]. ??Diabete s Care, Volume 33, [...] of body mass or the acutely ill. [email or web address] [email or web address] eGFR 101 >=60 mL/min/1.73 m?? [facility] LABORATORY Comment: The eGFR was calculated using the CKD-EP I equation. As with all creatinine based estimates of kidney function, eGFR values calculated with the CKD-EPI equation are not accurate in patients wi th acute kidney failure, extremes of body mass or the acutely ill. [email or web address] [email or web address] Specimen Anatomical Collection Method Collection Time Receive d Time (Source) Location / / Volume Laterality Blood specimen 12/07/2019 5:20 AM 020 5:37 (specimen) EDT AM EDT Resulting Agency Comment Spec In Lab Gretchen Yoon MD CHEMISTRY ORDERABLES Performing Organization Address City/State/ZIP [place] [address] Heparin (unfractionated) Level (12/06/2019 10:14 PM EDT) athologist Signature Heparin UFH 0.29 IU/mL [facility] LABORATORY Comment: Guidelines for therapeutic unfractionate [...] Organization Address City/State/ZIP [place] [address] Head wo Contrast [...] For questions regarding this report, please contact [facility] number [facility]. ? Narrative 12/06/2019 10:06 [...] Signature WBC 10.4 (H) 4.0 - 9.5 [facility] [employer] x10(3)/[facility] LABORATORY RBC 4.32 (L) 4.58 - [place] DOV 5.54 [facility] x10(6)/[facility] LABORATORY Hemoglobin 12.5 (L) 13.7 - [place] DOV 16.5 gm/dL [facility] LABORATORY Hematocrit 38.4 (L) 40.5 - [place] DOV 48.5 % [facility] LABORATORY MCV 88.9 82.9 - [facility] DOV 93.1 [facility] LABORATORY MCH 28.9 27.5 - CopybarDOV 32.1 pg [facility] LABORATORY MCHC 32.6 32.0 - [place] DOV 35.7 gm/dL [facility] LABORATORY Platelets 194 145 - 357 [facility] LABORATORY RDWSD 46.9 (H) 36.0 - [facility] DOV 45.0 [facility] LABORATORY RDWCV 14.6 (H) 11.4 - [place] DOV 13.8 % [facility] LABORATORY MPV 11.9 7.6 - 12.9 [facility] DOV [facility] LABORATORY nRBC % Auto 0.0 % [facility] LABORATORY nRBC Abs Auto 0.000 0.000 - [facility] 0.000 [facility] x10(3)/[facility] LABORATORY Specimen Anatomical Collection Method Collection Time Receive d Time (Source) Location / / Volume Laterality Blood specimen 12/06/2019 4:20 PM 020 4:31 (specimen) EDT PM EDT Resulting Agency Comment Spec In Lab Gretchen Yoon MD HEMATOLOGY ORDERABLES Performing Organization Address City/State/ZIP Code Phon e Number [place] [id number]OSP[address] LAB[address]ORY Drive Heparin (unfractionated) Level (12/06/2019 4:20 PM EDT) athologist Signature Heparin UFH 0.30 IU/mL [facility] LABORATORY Comment: Guidelines for therapeutic unfractionate [...] Organization Address City/State/ZIP Code Phon e Number [address] Heparin (unfractionated) Level (12/06/2019 10:02 AM EDT) athologist Signature Heparin UFH <0.04 IU/mL [facility] LABORATORY Comment: Guidelines for therapeutic unfractionate [...] Organization Address City/State/[place] [address] Magnesium (12/06/2019 3:36 AM EDT) P athologist Signature Magnesium 0.86 0.69 - 1.07 [facility] mmol/L [facility] LABORATORY Specimen Anatomical Collection Method Collection Time Receive d Time (Source) Location / / Volume Laterality Blood specimen 12/06/2019 3:36 AM 020 3:45 (specimen) EDT AM EDT Resulting Agency Comment Spec In Lab Gretchen Yoon MD CHEMISTRY ORDERABLES Performing Organization Address City/State/[place] [address] (ABNORMAL) BMP w/fasting Glucose (12/06/2019 3:36 AM EDT) P athologist Signature Glucose 103 (H) 65 - 99 [facility] Fasting mg/dL [facility] LABORATORY Comment: ?Fasting* Glucose Interpretive [...] of Diabetes Mellitus, Position Statement from the [place] [employer]. ??Diabete s Care, Volume 33, [...] of body mass or the acutely ill. [email or web address] eGFR 99 >=60 mL/min/1.73 m?? [facility] LABORATORY Comment: The eGFR was calculated using the CKD-EP I equation. As with all creatinine based estimates of kidney function, eGFR values calculated with the CKD-EPI equation are not accurate in patients wi th acute kidney failure, extremes of body mass or the acutely ill. [email or web address] Specimen Anatomical Collection Method Collection Time Receive d Time (Source) Location / / Volume Laterality Blood specimen 12/06/2019 3:36 AM 020 3:45 (specimen) EDT AM EDT Resulting Agency Comment Spec In Lab Gretchen Yoon MD CHEMISTRY ORDERABLES Performing Organization Address City/State/ZIP [place] [address] (ABNORMAL) Hemogram (12/06/2019 3:36 AM EDT) Analysis Performed At Patho logist Time Signature WBC 9.2 4.0 - 9.5 [facility](3[facility] LABORATORY RBC 3.99 (L) 4.58 - [place] DOV 5.54 [facility] x10(6)/[facility] LABORATORY Hemoglobin 11.9 (L) 13.7 - [facility] DOV 16.5 gm/dL [facility] LABORATORY Hematocrit 35.5 (L) 40.5 - [place] DOV 48.5 % [facility] LABORATORY MCV 89.0 82.9 - [facility] DOV 93.1 [facility] LABORATORY MCH 29.8 27.5 - [place] DOV 32.1 pg [facility] LABORATORY MCHC 33.5 32.0 - [facility] DOV 35.7 gm/dL [facility] LABORATORY Platelets 164 145 - 357 [facility] LABORATORY RDWSD 47.6 (H) 36.0 - [facility] DOV 45.0 [facility] LABORATORY RDWCV 14.7 (H) 11.4 - [place] DOV 13.8 % [facility] LABORATORY MPV 11.9 7.6 - 12.9 [facility] nRBC % Auto 0.0 % [facility] LABORATORY nRBC Abs Auto 0.000 0.000 - CopybarDOV 0.000 [facility] x10(3)/[facility] LABORATORY Specimen Anatomical Collection Method Collection Time Receive d Time (Source) Location / / Volume Laterality Blood specimen 12/06/2019 3:36 AM 020 3:45 (specimen) EDT AM EDT Resulting Agency Comment Spec In Lab Gretchen Yoon MD HEMATOLOGY ORDERABLES Performing Organization Address City/State/ZIP [place] [address] (ABNORMAL) Differential, Automated (12/05/2019 10:52 PM EDT) [facility] Method Time Signature Neutrophils % 61.9 % [facility] LABORATORY Neutr Abs (ANC) 6.02 1.70 - [facility] 6.10 [facility] x10(3)/[facility] LABORATORY Lymphocytes % 22.4 % [facility] LABORATORY Lymphocytes Abs 2.2 0.9 - 3.2 [facility] x10(3)/[facility] LABORATORY Monocytes % 10.4 % [facility] LABORATORY Monocyte Abs 1.0 (H) 0.3 - 0.9 [facility] x10(3)/[facility] LABORATORY Eosinophils % 4.1 % [facility] LABORATORY Eosinophils Abs 0.4 0.0 - 0.4 [facility] x10(3)/[facility] LABORATORY Basophils % 0.7 % [facility] LABORATORY Basophils Abs 0.1 0.0 - 0.1 [facility] x10(3)/[facility] LABORATORY Immature Gran % 0.50 % [...] Abs 0.05 (H) 0.00 - 0.04 x10(3)/[facility] LABORATORY Specimen Anatomical Collection Method Collection Time Receive d Time (Source) Location / / Volume Laterality Blood specimen 12/05/2019 10:52 0 (specimen) PM EDT 10:59 PM EDT Resulting Agency Comment Spec In Lab Mandi Barrera MD HEMATOLOGY ORDERABLES Performing Organization Address City/State/ZIP [place] [address] (ABNORMAL) Hemogram (12/05/2019 10:52 PM EDT) Analysis Performed At Patho logist Time Signature WBC 9.7 (H) 4.0 - 9.5 [facility] x10(3)/[facility] LABORATORY RBC 4.07 (L) 4.58 - [facility] DOV 5.54 [facility] x10(6)/[facility] LABORATORY Hemoglobin 11.9 (L) 13.7 - [facility] 16.5 gm/dL [facility] LABORATORY Hematocrit 36.4 (L) 40.5 - [facility] 48.5 % [facility] LABORATORY MCV 89.4 82.9 - [facility] 93.1 [facility] LABORATORY MCH 29.2 27.5 - [facility] DOV 32.1 pg [facility] LABORATORY MCHC 32.7 32.0 - [facility] DOV 35.7 gm/dL [facility] LABORATORY Platelets 167 145 - 357 [facility] x10(3)/[facility] LABORATORY RDWSD 47.7 (H) 36.0 - [facility] DOV 45.0 [facility] LABORATORY RDWCV 14.6 (H) 11.4 - [facility] DOV 13.8 % [facility] LABORATORY MPV 12.1 7.6 - 12.9 [facility] LABORATORY nRBC % Auto 0.0 % [facility] LABORATORY nRBC Abs Auto 0.000 0.000 - [facility] DOV 0.000 [facility] x10(3)/[facility] LABORATORY Specimen Anatomical Collection Method Collection Time Receive d Time (Source) Location / / Volume Laterality Blood specimen 12/05/2019 10:52 0 (specimen) PM EDT 10:59 PM EDT Resulting Agency Comment Spec In Lab Mandi Barrera MD HEMATOLOGY ORDERABLES Performing Organization Address City/State/ZIP [place] [address] Heparin (unfractionated) Level (12/05/2019 10:52 PM EDT) P athologist Signature Heparin UFH <0.04 IU/mL [facility] LABORATORY Comment: Guidelines for therapeutic unfractionate [...] Organization Address City/State/[place] [address] MRI Brain wwo Contrast [...] Time Signature WBC 8.7 4.0 - 9.5 [facility] x10(3)/[facility] LABORATORY RBC 4.17 (L) 4.58 - [place] DOV 5.54 [facility] x10(6)/[facility] LABORATORY Hemoglobin 12.4 (L) 13.7 - [facility] 16.5 gm/dL [facility] LABORATORY Hematocrit 37.0 (L) 40.5 - [facility] DOV 48.5 % [facility] LABORATORY MCV 88.7 82.9 - [facility] DOV 93.1 [facility] LABORATORY MCH 29.7 27.5 - [place] DOV 32.1 pg [facility] LABORATORY MCHC 33.5 32.0 - [facility] DOV 35.7 gm/dL [facility] LABORATORY Platelets 173 145 - 357 [facility] x10(3)/[facility] LABORATORY RDWSD 47.3 (H) 36.0 - [facility] DOV 45.0 [facility] LABORATORY RDWCV 14.6 (H) 11.4 - [facility] DOV 13.8 % [facility] LABORATORY MPV 12.1 7.6 - 12.9 [facility] nRBC % Auto 0.0 % [facility] LABORATORY nRBC Abs Auto 0.000 0.000 - [place] DOV 0.000 [facility] x10(3)/[facility] LABORATORY Specimen Anatomical Collection Method Collection Time Receive d Time (Source) Location / / Volume Laterality Blood specimen 12/05/2019 1:00 PM 020 1:13 (specimen) EDT PM EDT Resulting Agency Comment Spec In Lab Gretchen Yoon MD HEMATOLOGY ORDERABLES Performing Organization Address City/State/ZIP [place] [address] EKG 12 Lead (12/05/2019 10:52 AM EDT) Component Value Ref Range Test Analysis Performed Pathologis t Method Time At Signature Ventricular rate 72 BPM MUSE SYSTEM Atrial Rate 72 BPM MUSE SYSTEM P-R Interval 138 ms MUSE SYSTEM QRS Duration 96 ms MUSE SYSTEM Q-T Interval 396 ms MUSE SYSTEM QTC Calculated 433 ms MUSE SYSTEM (Bezet) Calculated P [place] 65 degrees MUSE SYSTEM Calculated R [place] 13 degrees MUSE SYSTEM Calculated T [place] 0 degrees MUSE SYSTEM INTERPRETATION Sinus rhythm Occasional Premature ventricular complexe s MUSE SYSTEM Possible Inferior infarct (cited on or before 29-NOV-2019) Abnormal ECG When compared with ECG of 04-DEC-2019 10:43, Sinus rhythm has replaced Atrial fibrillation Vent. rate has decreased BY ??86 BPM Confirmed by MD Ceja Daniel ([id number]) on 12/05/2019 3:55:22 PM Specimen Anatomical Collection Method Collection Time Receive d Time (Source) Location / / Volume Laterality 12/05/2019 10:52 12/05/2019 3:55 AM EDT PM EDT Paris Lagos MD ECG ORDERABLES Performing Organization Address City/State/ZIP Code Phon e Number MUSE SYSTEM Duplex Study for DVT, Bilat legs (12/05/2019 7:00 AM EDT) Component Value Ref Test Analysis Performed At [facility] gist Range Method Time Signature VB Text Department: Vascular Surgery Lab VASCUBASE Report Patient: [id number] (ANGEL LUIS SALINAS) CPT: 50881 ICD10: I26.99 Referring Physician: GRETCHEN YOON ?? [...] athologist Signature Magnesium 0.87 0.69 - 1.07 [facility] mmol/L [facility] LABORATORY Specimen Anatomical Collection Method Collection Time Receive d Time (Source) Location / / Volume Laterality Blood specimen 12/05/2019 4:18 AM 020 4:31 (specimen) EDT AM EDT Resulting Agency Comment Spec In Lab Gretchen Yoon MD CHEMISTRY ORDERABLES Performing Organization Address City/State/[place] [address] (ABNORMAL) BMP w/fasting Glucose (12/05/2019 4:18 AM EDT) P athologist Signature Glucose 104 (H) 65 - 99 [facility] Fasting mg/dL [facility] LABORATORY Comment: ?Fasting* Glucose Interpretive [...] of Diabetes Mellitus, Position Statement from the [place] [employer]. ??Diabete s Care, Volume 33, [...] of body mass or the acutely ill. [email or web address] eGFR 84 >=60 mL/min/1.73 m?? [facility] LABORATORY Comment: The eGFR was calculated using the CKD-EP I equation. As with all creatinine based estimates of kidney function, eGFR values calculated with the CKD-EPI equation are not accurate in patients wi th acute kidney failure, extremes of body mass or the acutely ill. [email or web address]ULSAnkf Specimen Anatomical Collection Method Collection Time Receive d Time (Source) Location / / Volume Laterality Blood specimen 12/05/2019 4:18 AM 020 4:31 (specimen) EDT AM EDT Resulting Agency Comment Spec In Lab Gretchen Yoon MD CHEMISTRY ORDERABLES Performing Organization Address City/State/ZIP [place] [address] (ABNORMAL) Hemogram (12/05/2019 4:18 AM EDT) Analysis Performed At Patho logist Time Signature WBC 8.6 4.0 - 9.5 [facility](3[facility] LABORATORY RBC 4.28 (L) 4.58 - [place] DOV 5.54 [facility] x10(6)/[facility] LABORATORY Hemoglobin 12.4 (L) 13.7 - [facility] 16.5 gm/dL [facility] LABORATORY Hematocrit 37.3 (L) 40.5 - [facility] 48.5 % [facility] LABORATORY MCV 87.1 82.9 - [facility] 93.1 [facility] LABORATORY MCH 29.0 27.5 - [place] DOV 32.1 pg [facility] LABORATORY MCHC 33.2 32.0 - [place] DOV 35.7 gm/dL [facility] LABORATORY Platelets 163 145 - 357 [facility] LABORATORY RDWSD 46.4 (H) 36.0 - [facility] DOV 45.0 [facility] LABORATORY RDWCV 14.4 (H) 11.4 - [facility] DOV 13.8 % [facility] LABORATORY MPV 11.7 7.6 - 12.9 [facility] nRBC % Auto 0.0 % [facility] LABORATORY nRBC Abs Auto 0.000 0.000 - [place] DOV 0.000 [facility] x10(3)/[facility] LABORATORY Specimen Anatomical Collection Method Collection Time Receive d Time (Source) Location / / Volume Laterality Blood specimen 12/05/2019 4:18 AM 020 4:31 (specimen) EDT AM EDT Resulting Agency Comment Spec In Lab Gretchen Yoon MD HEMATOLOGY ORDERABLES Performing Organization Address City/State/ZIP [place] [address] Cardiac for Morphology [...] For questions regarding this report, please contact [facility]. ? Narrative 12/04/2019 6:16 PM EDT EXAMINATION: CT CARDIAC FOR MORPHOLOGY & FUNCTION CLINICAL HISTORY: Pt with AFib and intra cranial hemorrhage, evaluation for possible left atrial appendage closure TECHNIQUE: After timing bolus, 0.6 [facility] contiguous sections were obtained through [...] from neck/greatest puja meter to back wall: NIUEAN 91, CAU 13: ??19 mm CORTES ??1, [...] from neck/greatest puja meter to back wall: NIUEAN 91, CAU 13: 19 mm CORTES 1, [...] Time Signature WBC 8.9 4.0 - 9.5 [facility] x10(3)/[facility] LABORATORY RBC 4.69 4.58 - [facility] 5.54 [facility] x10(6)/[facility] LABORATORY Hemoglobin 13.5 (L) 13.7 - [facility] 16.5 gm/dL [facility] LABORATORY Hematocrit 41.7 40.5 - [facility] 48.5 % [facility] LABORATORY MCV 88.9 82.9 - [place] MONAE 93.1 [facility] LABORATORY MCH 28.8 27.5 - [place] MONAE 32.1 pg [facility] LABORATORY MCHC 32.4 32.0 - [place] MONAE 35.7 gm/dL [facility] Platelets 196 145 - 357 [facility] x10(3)/[facility] LABORATORY RDWSD 46.7 (H) 36.0 - [place] MONAE 45.0 [facility] LABORATORY RDWCV 14.5 (H) 11.4 - [place] DOV 13.8 % [facility] LABORATORY MPV 12.1 7.6 - 12.9 [facility] LABORATORY nRBC % Auto 0.0 % [facility] nRBC Abs Auto 0.000 0.000 - [place] MONAE 0.000 [facility] x10(3)/[facility] LABORATORY Specimen Anatomical Collection Method Collection Time Receive d Time (Source) Location / / Volume Laterality Blood specimen 12/04/2019 12:55 0 1:06 (specimen) PM EDT PM EDT Resulting Agency Comment Spec In Lab Gretchen Yoon MD HEMATOLOGY ORDERABLES Performing Organization Address City/State/Z[place] [address] EKG 12 Lead (12/04/2019 10:43 AM EDT) Component Value Ref Range Test Analysis Performed Pathologis t Method Time At Signature Ventricular rate 158 BPM MUSE SYSTEM Atrial Rate 102 BPM MUSE SYSTEM QRS Duration 92 ms MUSE SYSTEM Q-T Interval 294 ms MUSE SYSTEM QTC Calculated 476 ms MUSE SYSTEM (Bezet) Calculated R [place] 17 degrees MUSE SYSTEM Calculated T [place] 90 degrees MUSE SYSTEM INTERPRETATION Atrial fibrillation with rapid ventricular response MUSE SYSTEM Possible Inferior infarct (cited on or before 29-NOV-2019) Abnormal ECG When compared with ECG of 30-NOV-2019 21:07, Atrial fibrillation has replaced Sinus rhythm Vent. rate has increased BY ??65 BPM Confirmed by MD Ceja Daniel ([id number]) on 12/05/2019 8:59:44 AM Specimen Anatomical Collection Method Collection Time Receive d Time (Source) Location / / Volume Laterality 12/04/2019 10:43 12/05/2019 8:59 AM EDT AM EDT Gretchen Yoon MD ECG ORDERABLES Performing Organization Address City/State/ZIP Code Phon e Number MUSE SYSTEM (ABNORMAL) Magnesium (12/04/2019 4:28 AM EDT) athologist Signature Magnesium 1.17 (H) 0.69 - 1.07 [facility] mmol/L [facility] LABORATORY Specimen Anatomical Collection Method Collection Time Receive d Time (Source) Location / / Volume Laterality Blood specimen 12/04/2019 4:28 AM 020 4:40 (specimen) EDT AM EDT Resulting Agency Comment Spec In Lab Gretchen Yoon MD CHEMISTRY ORDERABLES Performing Organization Address City/State/[place] [address] (ABNORMAL) BMP w/fasting Glucose (12/04/2019 4:28 AM EDT) P athologist Signature Glucose 108 (H) 65 - 99 [facility] Fasting mg/dL [facility] LABORATORY Comment: ?Fasting* Glucose Interpretive [...] of Diabetes Mellitus, Position Statement from the [place] [employer]. ??Diabete s Care, Volume 33, [...] of body mass or the acutely ill. [email or web address] [email or web address] eGFR 98 >=60 mL/min/1.73 m?? [facility] LABORATORY Comment: The eGFR was calculated using the CKD-EP I equation. As with all creatinine based estimates of kidney function, eGFR values calculated with the CKD-EPI equation are not accurate in patients wi th acute kidney failure, extremes of body mass or the acutely ill. [email or web address]ULSAnkf Specimen Anatomical Collection Method Collection Time Receive d Time (Source) Location / / Volume Laterality Blood specimen 12/04/2019 4:28 AM 020 4:40 (specimen) EDT AM EDT Resulting Agency Comment Spec In Lab Gretchen Yoon MD CHEMISTRY ORDERABLES Performing Organization Address City/State/ZIP [place] [address] (ABNORMAL) Hemogram (12/04/2019 4:28 AM EDT) Analysis Performed At Patho logist Time Signature WBC 7.8 4.0 - 9.5 [facility] x10(3)/[facility] LABORATORY RBC 4.10 (L) 4.58 - [facility] 5.54 [facility] x10(6)/[facility] LABORATORY Hemoglobin 12.0 (L) 13.7 - [place] 16.5 gm/dL [facility] LABORATORY Hematocrit 36.5 (L) 40.5 - [place]ACK 48.5 % [facility] LABORATORY MCV 89.0 82.9 - [place] 93.1 [facility] LABORATORY MCH 29.3 27.5 - [place] 32.1 pg [facility] LABORATORY MCHC 32.9 32.0 - [place] 35.7 gm/dL [facility] LABORATORY Platelets 151 145 - 357 [facility] x10(3)/[facility] LABORATORY RDWSD 46.9 (H) 36.0 - [place] 45.0 [facility] LABORATORY RDWCV 14.4 (H) 11.4 - [place] DOV 13.8 % [facility] [facility] LABORATORY MPV 12.2 7.6 - 12.9 MELINA MARSHDOV [facility] LABORATORY nRBC % Auto 0.0 % [facility] LABORATORY nRBC Abs Auto 0.000 0.000 - MELINA VILLANUEVACK 0.000 [facility] x10(3)/[facility] LABORATORY Specimen Anatomical Collection Method Collection Time Receive d Time (Source) Location / / Volume Laterality Blood specimen 12/04/2019 4:28 AM 020 4:40 (specimen) EDT AM EDT Resulting Agency Comment Spec In Lab Gretchen Yoon MD HEMATOLOGY ORDERABLES Performing Organization Address City/State/[place] [address] Potassium (12/03/2019 7:55 PM EDT) athologist Signature Potassium 3.9 3.5 - 5.0 [facility] mmol/L [facility]ORY Comment: Please note: ??Patients [...] Yoon MD CHEMISTRY ORDERABLES Performing Organization Address City/[facility]/ZIP [place] [address] Potassium (12/03/2019 1:57 PM EDT) P athologist Signature Potassium 3.7 3.5 - 5.0 [facility] DOV mmol/L [facility]ORY Comment: Please note: ??Patients [...] Yoon MD CHEMISTRY ORDERABLES Performing Organization Address City/[facility]/ZIP [place] [address] (ABNORMAL) Hemogram (12/03/2019 1:57 PM EDT) Analysis Performed At Patho logist Time Signature WBC 8.8 4.0 - 9.5 MELINA DOV x10(3)/[facility] LABORATORY RBC 4.27 (L) 4.58 - MELINA DOV 5.54 [facility] x10(6)/[facility] LABORATORY Hemoglobin 12.5 (L) 13.7 - MELINA DOV 16.5 gm/dL [facility]ORATORY Hematocrit 37.5 (L) 40.5 - MELINA DOV 48.5 % [facility] LABORATORY MCV 87.8 82.9 - MELINA DOV 93.1 [facility] LABORATORY MCH 29.3 27.5 - MELINA DOV 32.1 pg [facility]ORATORY MCHC 33.3 32.0 - MELINA DOV 35.7 gm/dL [facility] LABORATORY Platelets 158 145 - 357 MELINA DOV x10(3)/[facility] LABORATORY RDWSD 46.9 (H) 36.0 - MELINA DOV 45.0 [facility] LABORATORY RDWCV 14.5 (H) 11.4 - MELINA DOV 13.8 % [facility] LABORATORY MPV 12.2 7.6 - 12.9 [facility] fL [facility] LABORATORY nRBC % Auto 0.0 % [facility] LABORATORY nRBC Abs Auto 0.000 0.000 - MELINA MONAE 0.000 [facility] x10(3)/[facility] LABORATORY Specimen Anatomical Collection Method Collection Time Receive d Time (Source) Location / / Volume Laterality Blood specimen 12/03/2019 1:57 PM 020 2:21 (specimen) EDT PM EDT Resulting Agency Comment Spec In Lab Gretchen Yoon MD HEMATOLOGY ORDERABLES Performing Organization Address City/State/ZIP Code Phon e Number [address] Magnesium (12/03/2019 4:02 AM EDT) P athologist Signature Magnesium 0.79 0.69 - 1.07 [facility] mmol/L [facility] LABORATORY Specimen Anatomical Collection Method Collection Time Receive d Time (Source) Location / / Volume Laterality Blood specimen 12/03/2019 4:02 AM 020 4:16 (specimen) EDT AM EDT Resulting Agency Comment Spec In Lab Gretchen Yoon MD CHEMISTRY ORDERABLES Performing Organization Address City/State/ZIP Code Phon e Number [address] (ABNORMAL) BMP w/fasting Glucose (12/03/2019 4:02 AM EDT) P athologist Signature Glucose 100 (H) 65 - 99 [facility] Fasting mg/dL [facility] LABORATORY Comment: ?Fasting* Glucose Interpretive [...] of Diabetes Mellitus, Position Statement from the [place] [employer]. ??Diabete s Care, Volume 33, [...] of body mass or the acutely ill. [email or web address]ULSAnkf eGFR 92 >=60 mL/min/1.73 m?? [facility] LABORATORY Comment: The eGFR was calculated using the CKD-EP I equation. As with all creatinine based estimates of kidney function, eGFR values calculated with the CKD-EPI equation are not accurate in patients wi th acute kidney failure, extremes of body mass or the acutely ill. [email or web address] Specimen Anatomical Collection Method Collection Time Receive d Time (Source) Location / / Volume Laterality Blood specimen 12/03/2019 4:02 AM 06/03/2 020 4:16 (specimen) EDT AM EDT Resulting Agency Comment Spec In Lab Gretchen Yoon MD CHEMISTRY ORDERABLES Performing Organization Address City/State/ZIP Code Phon e Number [address] (ABNORMAL) Hemogram (12/03/2019 4:02 AM EDT) Analysis Performed At Patho logist Time Signature WBC 9.1 4.0 - 9.5 MELINA DOV x10(3)/[facility] LABORATORY RBC 4.01 (L) 4.58 - MELINA DOV 5.54 [facility] x10(6)/[facility] LABORATORY Hemoglobin 11.8 (L) 13.7 - [facility] DOV 16.5 gm/dL [facility] LABORATORY Hematocrit 35.6 (L) 40.5 - MELINA DOV 48.5 % [facility] LABORATORY MCV 88.8 82.9 - [facility] DOV 93.1 [facility] LABORATORY MCH 29.4 27.5 - MELINA DOV 32.1 pg [facility] LABORATORY MCHC 33.1 32.0 - MELINA DOV 35.7 gm/dL [facility] LABORATORY Platelets 130 (L) 145 - 357 [facility] LABORATORY RDWSD 46.6 (H) 36.0 - MELINA DOV 45.0 [facility] LABORATORY RDWCV 14.4 (H) 11.4 - MELINA DOV 13.8 % [facility] LABORATORY MPV 12.4 7.6 - 12.9 [facility] DOV [facility] LABORATORY nRBC % Auto 0.0 % [facility] LABORATORY nRBC Abs Auto 0.000 0.000 - MELINA DOV 0.000 [facility] x10(3)/[facility] LABORATORY Specimen Anatomical Collection Method Collection Time Receive d Time (Source) Location / / Volume Laterality Blood specimen 12/03/2019 4:02 AM 020 4:16 (specimen) EDT AM EDT Resulting Agency Comment Spec In Lab Gretchen Yoon MD HEMATOLOGY ORDERABLES Performing Organization Address City/State/[place] [address] XR Chest One View [...] Signature WBC 10.6 (H) 4.0 - 9.5 [facility] x10(3)/[facility] LABORATORY RBC 4.00 (L) 4.58 - MELINA DOV 5.54 [facility] x10(6)/[facility] LABORATORY Hemoglobin 11.9 (L) 13.7 - [facility] DOV 16.5 gm/dL [facility] LABORATORY Hematocrit 35.7 (L) 40.5 - MELINA DOV 48.5 % [facility] LABORATORY MCV 89.3 82.9 - MELINA DOV 93.1 [facility] LABORATORY MCH 29.8 27.5 - MELINA DOV 32.1 pg [facility] LABORATORY MCHC 33.3 32.0 - MELINA DOV 35.7 gm/dL [facility] LABORATORY Platelets 120 (L) 145 - 357 [facility] x10(3)/[facility] LABORATORY RDWSD 47.5 (H) 36.0 - MELINA DOV 45.0 [facility] LABORATORY RDWCV 14.6 (H) 11.4 - MELINA DOV 13.8 % [facility] LABORATORY MPV 12.0 7.6 - 12.9 [facility] DOV [facility] LABORATORY nRBC % Auto 0.0 % [facility] LABORATORY nRBC Abs Auto 0.000 0.000 - MELINA DOV 0.000 [facility] x10(3)/[facility] LABORATORY Specimen Anatomical Collection Method Collection Time Receive d Time (Source) Location / / Volume Laterality Blood specimen 12/02/2019 12:50 0 1:22 (specimen) PM EDT PM EDT Resulting Agency Comment Spec In Lab Gretchen Yoon MD HEMATOLOGY ORDERABLES Performing Organization Address City/State/ZIP Code Phon e Number [address] Blue Tube HOLD (12/02/2019 4:55 AM EDT) P athologist Signature Blue Hold Sample in [facility] lab. [facility] LABORATORY Specimen Anatomical Collection Method Collection Time Receive d Time (Source) Location / / Volume Laterality Blood specimen Venous Draw / 12/02/2019 4:55 AM 2019 5:03 (specimen) Unknown EDT AM EDT Darrell Glasgow MD HEMATOLOGY ORDERABLES Performing Organization Address City/[facility]/ZIP Code Phon e Number [address] Magnesium (12/02/2019 4:55 AM EDT) athologist Signature Magnesium 0.85 0.69 - 1.07 [facility] mmol/L [facility] LABORATORY Specimen Anatomical Collection Method Collection Time Receive d Time (Source) Location / / Volume Laterality Blood specimen 12/02/2019 4:55 AM 020 5:02 (specimen) EDT AM EDT Resulting Agency Comment Spec In Lab Gretchen Yoon MD CHEMISTRY ORDERABLES Performing Organization Address City/[facility]/ZIP Code Phon e Number [address] (ABNORMAL) BMP w/fasting Glucose (12/02/2019 4:55 AM EDT) P athologist Signature Glucose 114 (H) 65 - 99 [facility] Fasting mg/dL [facility] LABORATORY Comment: ?Fasting* Glucose Interpretive [...] of Diabetes Mellitus, Position Statement from the [place] [employer]. ??Diabete s Care, Volume 33, [...] of body mass or the acutely ill. [email or web address]ULSAnkf eGFR 94 >=60 mL/min/1.73 m?? [facility] LABORATORY Comment: The eGFR was calculated using the CKD-EP I equation. As with all creatinine based estimates of kidney function, eGFR values calculated with the CKD-EPI equation are not accurate in patients wi th acute kidney failure, extremes of body mass or the acutely ill. [email or web address]SAnkf Specimen Anatomical Collection Method Collection Time Receive d Time (Source) Location / / Volume Laterality Blood specimen 12/02/2019 4:55 AM 020 5:02 (specimen) EDT AM EDT Resulting Agency Comment Spec In Lab Gretchen Yoon MD CHEMISTRY ORDERABLES Performing Organization Address City/State/ZIP Code Phon e Number [address] (ABNORMAL) Hemogram (12/02/2019 4:55 AM EDT) Analysis Performed At Patho logist Time Signature WBC 9.3 4.0 - 9.5 MELINA DOV x10(3)/[facility] LABORATORY RBC 3.71 (L) 4.58 - MELINA DOV 5.54 [facility] x10(6)/[facility] LABORATORY Hemoglobin 10.8 (L) 13.7 - MELINA DOV 16.5 gm/dL [facility] LABORATORY Hematocrit 33.1 (L) 40.5 - MELINA DOV 48.5 % [facility] LABORATORY MCV 89.2 82.9 - [facility] DOV 93.1 [facility] LABORATORY MCH 29.1 27.5 - MELINA DOV 32.1 pg [facility] LABORATORY MCHC 32.6 32.0 - MELINA DOV 35.7 gm/dL [facility] LABORATORY Platelets 93 (L) 145 - 357 [facility] LABORATORY RDWSD 47.1 (H) 36.0 - [facility] DOV 45.0 [facility] LABORATORY RDWCV 14.6 (H) 11.4 - MELINA DOV 13.8 % [facility] LABORATORY MPV 11.7 7.6 - 12.9 [facility] DOV [facility] LABORATORY nRBC % Auto 0.0 % [facility] LABORATORY nRBC Abs Auto 0.000 0.000 - MELINA DOV 0.000 [facility] x10(3)/[facility] LABORATORY Specimen Anatomical Collection Method Collection Time Receive d Time (Source) Location / / Volume Laterality Blood specimen 12/02/2019 4:55 AM 020 5:02 (specimen) EDT AM EDT Resulting Agency Comment Spec In Lab Gretchen Yoon MD HEMATOLOGY ORDERABLES Performing Organization Address City/State/ZIP Code Phon e Number [address] Transfuse 1 unit platelets, [...] For questions regarding this report, please [facility]. ? Narrative 12/01/2019 8:02 PM [...] signed by: Angel Luis Barboza MD, Radiology [place] ([phone]), at 12/01/2019 8:02 PM Gretchen Yoon MD [...] Organization Address City/State/Z[place] [address] Duplex for DVT, Arm, Unilat (12/01/2019 5:08 PM EDT) Component Value Ref Test Analysis Performed At [facility] Range Method Time Signature VB Text Department: Vascular Surgery Lab VASCUBASE Report Patient: [id number] (ANGEL LUIS SALINAS) CPT: 53438 ICD10: R60.0 Referring Physician: GRETCHEN YOON ?? [...] Head CT 11/30/2019. CT angiogram of the [place] 11/01. FINDINGS: Ventricles are normal in size. Basal cis terns are patent. Unchanged hyperdense 2.3 x 0.7 x 0.6 cm tubular hemorrhage projecting along the course of the left optic tract (axial se [facility] 2 image 16), consistent with [...] Head CT 11/30/2019. CT angiogram of the [place] 11/01. FINDINGS: Ventricles are normal [...] Peripheral Blood (12/01/2019 12:51 PM EDT) [facility] Method Time Signature Plat Estimate Decreased [facility] LABORATORY RBC Morphology Normal [facility] LABORATORY Giant Less than 1 /HPF [facility] LABORATORY Specimen Anatomical Collection Method Collection Time Receive d Time (Source) Location / / Volume Laterality Blood specimen 12/01/2019 12:51 0 1:05 (specimen) PM EDT PM EDT Resulting Agency Comment Spec In Lab Riki Stevens MD HEMATOLOGY ORDERABLES Performing Organization Address City/State/[place] [address] (ABNORMAL) Differential, Automated (12/01/2019 12:51 PM EDT) [facility] Method Time Signature Neutrophils % 74.9 % [facility] LABORATORY Neutr Abs (ANC) 6.34 (H) 1.70 - [facility] 6.10 [facility] x10(3)/[facility] L LABORATORY Lymphocytes % 11.4 % [facility] LABORATORY Lymphocytes Abs 1.0 0.9 - 3.2 [facility] x10(3)/[facility] LABORATORY Monocytes % 12.4 % [facility] LABORATORY Monocyte Abs 1.0 (H) 0.3 - 0.9 [facility] x10(3)/[facility] LABORATORY Eosinophils % 0.4 % [facility] LABORATORY Eosinophils Abs 0.0 0.0 - 0.4 [facility] x10(3)/[facility] LABORATORY Basophils % 0.4 % [facility] LABORATORY Basophils Abs 0.0 0.0 - 0.1 [facility] x10(3)/[facility] LABORATORY Immature Gran % 0.50 [...] Pita Gran Abs 0.04 0.00 - 0.04 x10(3)/[facility] MAR Y [facility] LABORATORY Specimen Anatomical Collection Method Collection Time Receive d Time (Source) Location / / Volume Laterality Blood specimen 12/01/2019 12:51 0 1:05 (specimen) PM EDT PM EDT Resulting Agency Comment Spec In Lab Riki Stevens MD HEMATOLOGY ORDERABLES Performing Organization Address City/State/Z[place] [address] (ABNORMAL) Hemogram (12/01/2019 12:51 PM EDT) Analysis Performed At Patho logist Time Signature WBC 8.4 4.0 - 9.5 [facility] x10(3)/[facility] LABORATORY RBC 3.69 (L) 4.58 - [facility] 5.54 [facility] x10(6)/[facility] LABORATORY Hemoglobin 10.8 (L) 13.7 - [facility] 16.5 gm/dL [facility] LABORATORY Hematocrit 32.4 (L) 40.5 - [facility] 48.5 % [facility] LAB[facility]ATORY MCV 87.8 82.9 - [facility] 93.1 fL [facility] LABORATORY MCH 29.3 27.5 - [facility] 32.1 pg [facility] LABORATORY MCHC 33.3 32.0 - [facility] 35.7 gm/dL [facility] LABORATORY Platelets 72 (L) 145 - 357 [facility] x10(3)/[facility] LABORATORY RDWSD 47.2 (H) 36.0 - [facility] 45.0 [facility] LABORATORY RDWCV 14.6 (H) 11.4 - [facility] 13.8 % [facility] LABORATORY MPV 12.2 7.6 - 12.9 [facility] LABORATORY nRBC % Auto 0.0 % [facility] LABORATORY nRBC Abs Auto 0.000 0.000 - [facility] 0.000 [facility] x10(3)/[facility] LABORATORY Specimen Anatomical Collection Method Collection Time Receive d Time (Source) Location / / Volume Laterality Blood specimen 12/01/2019 12:51 0 1:05 (specimen) PM EDT PM EDT Resulting Agency Comment Spec In Lab Riki Stevens MD HEMATOLOGY ORDERABLES Performing Organization Address City/[facility]/ZIP Code Phon e Number [address] (ABNORMAL) Coox2 (12/01/2019 11:42 AM EDT) Analysis Performed At Patho logist Time Signature pO2 Coox 30 mmHg [facility] LABORATORY Hgb Blood Gas 11.6 (L) 13.7 - [facility] 16.5 gm/dL [facility] LABORATORY O2HB Coox 60.8 % [place] [...] Organization Address City/State/[place] [address] Sedimentation rate (12/01/2019 3:55 AM EDT) P athologist Signature Sed Rate 25 3 - 46 [facility] mm/hr [facility] LABORATORY Comment: Effective June 11, [...] Winn MD HEMATOLOGY ORDERABLES Performing Organization Address City/[facility]/ZIP Code Phon e Number [address] (ABNORMAL) CRP, acute inflammation [...] Winn MD CHEMISTRY ORDERABLES Performing Organization Address City/[facility]/ZIP Code Phon e Number [address] ABORH Recheck Status (12/01/2019 3:55 AM EDT) [facility] [employer] Method Time Signature ABORH Recheck Order Placed [facility] LABORATORY ABORH Type Complete [facility] LABORATORY Specimen Anatomical Collection Method Collection Time Receive d Time (Source) Location / / Volume Laterality Blood specimen 12/01/2019 3:55 AM 020 4:15 (specimen) EDT AM EDT Resulting Agency Comment Spec In Lab Lewis Gee MD BLOOD BANK ORDERABLES Performing Organization Address City/[facility]/[place] [address] Antibody screen (12/01/2019 3:55 AM EDT) Patholo gist Method Time Signature Ab Screen Negative [facility] LABORATORY Expires at 12/04/2019 MELINA MARSHDOV [id number] on: [facility] LABORATORY Specimen Anatomical Collection Method Collection Time Receive d Time (Source) Location / / Volume Laterality Blood specimen 12/01/2019 3:55 AM 020 4:15 (specimen) EDT AM EDT Resulting Agency Comment Spec In Lab Lewis Gee MD BLOOD BANK ORDERABLES Performing Organization Address [facility] [place] [address] ABO/Rh Typing (12/01/2019 3:55 AM EDT) athologist Signature ABORh Type AB Pos [facility] LABORATORY Specimen Anatomical Collection Method Collection Time Receive d Time (Source) Location / / Volume Laterality Blood specimen 12/01/2019 3:55 AM 020 4:15 (specimen) EDT AM EDT Resulting Agency Comment Spec In Lab Lewis Gee MD BLOOD BANK ORDERABLES Performing Organization Address [facility] [place] [address] (ABNORMAL) Troponin (12/01/2019 3:55 AM EDT) athologist [facility] Troponin-T 4.35 (H) 0.00 - [facility] 0.00 ng/mL [facility] LABORATORY Comment: result rechecked-slw The [...] additional sample may be indicated. Reference: Third [place] Definition of Myocardial Infarction. Journal of the [place] [employer] 2012;60:1581-98 Specimen Anatomical Collection Method Collection Time Receive d Time (Source) Location / / Volume Laterality Blood specimen 12/01/2019 3:55 AM 020 4:00 (specimen) EDT AM EDT Resulting Agency Comment Spec In Lab Gretchen Yoon MD CHEMISTRY ORDERABLES Performing Organization Address City/State/ZIP Code Phon e Number [address] Magnesium (12/01/2019 3:55 AM EDT) athologist Signature Magnesium 0.96 0.69 - 1.07 [facility] mmol/L [facility] LABORATORY Specimen Anatomical Collection Method Collection Time Receive d Time (Source) Location / / Volume Laterality Blood specimen 12/01/2019 3:55 AM 020 4:00 (specimen) EDT AM EDT Resulting Agency Comment Spec In Lab Gretchen Yoon MD CHEMISTRY ORDERABLES Performing Organization Address City/State/[place] [address] (ABNORMAL) BMP w/fasting Glucose (12/01/2019 3:55 AM EDT) P athologist Signature Glucose 148 (H) 65 - 99 [facility] Fasting mg/dL [facility] LABORATORY Comment: ?Fasting* Glucose Interpretive [...] of Diabetes Mellitus, Position Statement from the [place] [employer]. ??Diabete s Care, Volume 33, [...] of body mass or the acutely ill. [email or web address]SAnkf eGFR 91 >=60 mL/min/1.73 m?? [facility] LABORATORY Comment: The eGFR was calculated using the CKD-EP I equation. As with all creatinine based estimates of kidney function, eGFR values calculated with the CKD-EPI equation are not accurate in patients wi th acute kidney failure, extremes of body mass or the acutely ill. [email or web address] Specimen Anatomical Collection Method Collection Time Receive d Time (Source) Location / / Volume Laterality Blood specimen 12/01/2019 3:55 AM 020 4:00 (specimen) EDT AM EDT Resulting Agency Comment Spec In Lab Gretchen Yoon MD CHEMISTRY ORDERABLES Performing Organization Address City/State/Z[place] [address] (ABNORMAL) Hemogram (12/01/2019 3:55 AM EDT) Analysis Performed At Patho logist Time Signature WBC 11.0 (H) 4.0 - 9.5 [facility] LABORATORY RBC 3.46 (L) 4.58 - [facility] DOV 5.54 [facility] x10(6)/[facility] LABORATORY Hemoglobin 10.2 (L) 13.7 - [facility] 16.5 gm/dL [facility] LABORATORY Hematocrit 31.2 (L) 40.5 - [facility] 48.5 % [facility] LABORATORY MCV 90.2 82.9 - [facility] 93.1 [facility] LABORATORY MCH 29.5 27.5 - [place] DOV 32.1 pg [facility] LABORATORY MCHC 32.7 32.0 - [place] DOV 35.7 gm/dL [facility] LABORATORY Platelets 98 (L) 145 - 357 [facility] x10(3)/[facility] LABORATORY RDWSD 47.9 (H) 36.0 - [facility] DOV 45.0 [facility] LABORATORY RDWCV 14.6 (H) 11.4 - [facility] DOV 13.8 % [facility] LABORATORY MPV 12.3 7.6 - 12.9 [facility] nRBC % Auto 0.0 % [facility] LABORATORY nRBC Abs Auto 0.000 0.000 - [place] DOV 0.000 [facility] x10(3)/[facility] LABORATORY Specimen Anatomical Collection Method Collection Time Receive d Time (Source) Location / / Volume Laterality Blood specimen 12/01/2019 3:55 AM 020 4:00 (specimen) EDT AM EDT Resulting Agency Comment Spec In Lab Gretchen Yoon MD HEMATOLOGY ORDERABLES Performing Organization Address City/State/ZIP [place] [address] (ABNORMAL) BLOOD GAS 2 ARTERIAL (11/30/2019 10:39 PM EDT) Analysis Performed At Patho logist Time Signature pH Art 7.45 7.35 - [facility] 7.45 [facility] pCO2 Art 23 (L) 35 - 45 [facility] mmHg [facility] pO2 Art 76 (L) 85 - 104 [facility] mmHg [facility] HCO3 Art 15.3 (L) 20.0 - [facility] 26.0 [facility] mmol/L [facility] BE Art -8.7 (L) -3.0 - 3.0 [facility] mmol/L [facility] Hgb Blood Gas 11.7 (L) 13.7 - [facility] 16.5 gm/dL [facility] O2HB Art 94.2 94.0 - [facility] 97.0 % [facility] COHB Art 0.5 % [facility] Comment: Nonsmokers: 0.5-1.5% COHB Smokers: Variable, but usually less than 10% Toxic: 20-30% COHB Lethal: Greater than 60% COHB METHB Art 0.6 <=1.5 % [facility] Na Whole Blood 133 (L) 135 - 145 mmol/L [facility] K Whole Blood [...] Whole Bld 120 65 - 199 mg/dL [facility] Comment: Diabetes: >=200 mg/dL plus symp toms. Lactate WB 0.8 0.5 - 2.2 mmol/L [facility] FIO2 Art 100 % [facility] PF Ratio Art 76 [facility] Specimen Anatomical Collection Method Collection Time Receive d Time (Source) Location / / Volume Laterality Blood specimen 11/30/2019 10:39 0 (specimen) PM EDT 10:39 PM EDT Gretchen Yoon MD CHEMISTRY ORDERABLES Performing Organization Address City/[facility]/[place] [address] EKG 12 Lead (11/30/2019 [...] (Bezet) Calculated P 12 degrees MUSE SYSTEM [place] Calculated R 19 degrees MUSE SYSTEM [place] Calculated T -47 degrees MUSE SYSTEM [place] INTERPRETATION Sinus rhythm with Premature supraventricular complexes [...] Yoon MD ECG ORDERABLES Performing Organization Address City/[facility]/ZIP Code Phon e Number MUSE SYSTEM (ABNORMAL) Urinalysis Microscopic Exam (11/30/2019 8:40 PM EDT) P athologist Signature RBC UA 27 (H) 0 - 3 /HPF [facility] WBC UA 4 (H) 0 - 3 /HPF [facility] Hyaline Cast 3 (H) 0 - 2 /LPF [facility] Specimen (Source) Anatomical Collection Method Collection Time Re ceived Time Location / / Volume Laterality Urine specimen 11/30/2019 8:40 11/30/2019 obtained via PM EDT 10:51 PM EDT indwelling urinary catheter (specimen) Resulting Agency Comment Spec In Lab Rossy Winn MD URINE ORDERABLES Performing Organization Address City/State/ZIP Code Phon e Number [address] (ABNORMAL) Urinalysis with reflex Culture (11/30/2019 8:40 PM EDT) Patholo gist Method Time Signature Glucose UA Negative Negative [facility]dL [facility] Protein UA Negative Negative [facility] mg/dL [facility] Bilirubin UA Negative Negative [facility] mg/dL [facility] Comment: Clinical correlation required for positi ve Urine Bilirubin results as false positive may occur with some drugs and d rug related products. If a false positive is suspected a serum total bili morales should be considered if clinically indicated. Urobilinogen UA Normal Normal mg/dL [facility] pH UA 5.5 5.0 - 8.0 [facility] Blood UA Moderate (A) Negative mg/dL [facility] Ketones UA 40 (A) Negative mg/dL [facility] Nitrite UA Negative Negative [facility] Leukocytes UA Trace (A) Negative [facility] Appearance UA Clear Clear [facility] Spec Garland UA 1.026 1.006 - 1.030 [facility] Color UA Yellow Yellow [facility] Culture Reflexed No [facility] Specimen (Source) Anatomical Collection Method Collection Time Re ceived Time Location / / Volume Laterality Urine specimen 11/30/2019 8:40 11/30/2019 obtained via PM EDT 10:51 PM EDT indwelling urinary catheter (specimen) Resulting Agency Comment Spec In Lab Gretchen Yoon MD URINE ORDERABLES Performing Organization Address City/[facility]/ZIP Code Phon e Number [address] (ABNORMAL) pro-Brain Natriuretic Peptide (11/30/2019 8:30 PM EDT) P athologist Signature ProBNP 2,802 (H) <=125 MELINA DOV pg/mL [facility] Specimen Anatomical Collection Method Collection Time Receive d Time (Source) Location / / Volume Laterality Blood specimen Venous Draw / 11/30/2019 8:30 PM 2019 8:36 (specimen) Unknown EDT PM EDT Resulting Agency Comment Spec In Lab Rossy Winn MD CHEMISTRY ORDERABLES Performing Organization Address City/[facility]/ZIP [place] [address] (ABNORMAL) Troponin (11/30/2019 8:30 PM EDT) athologist Signature Troponin-T 5.04 (H) 0.00 - MELINA MONAE 0.00 ng/mL [facility] Comment: The 99th percentile [...] additional sample may be indicated. Reference: Third Delavan Definition of Myocardial Infarction. Journal of the [place] College [employer]iology 2012;60:1581-98 Specimen Anatomical Collection Method Collection Time Receive d Time (Source) Location / / Volume Laterality Blood specimen Venous Draw / 11/30/2019 8:30 PM 2019 8:36 (specimen) Unknown EDT PM EDT Resulting Agency Comment Spec In Lab Rossy Winn MD CHEMISTRY ORDERABLES Performing Organization Address City/[facility]/ZIP [place] [address] [facility] LAB[address]ORY Drive Magnesium (11/30/2019 8:30 PM EDT) athologist Signature Magnesium 0.79 0.69 - 1.07 [facility] mmol/L [facility] Specimen Anatomical Collection Method Collection Time Receive d Time (Source) Location / / Volume Laterality Blood specimen 11/30/2019 8:30 PM 020 8:35 (specimen) EDT PM EDT Resulting Agency Comment Spec In Lab Gretchen Yoon MD CHEMISTRY ORDERABLES Performing Organization Address City/State/ZIP Code Phon e Number [place] [phone] [facility] LABORATORY Drive (ABNORMAL) Basic Metabolic Panel (non-fasting) (11/30/2019 8:30 PM EDT) athologist Signature Glucose Lvl 132 65 - 199 [facility] mg/dL [facility] Comment: Diabetes: >=200 mg/dL [...] of body mass or the acutely ill. http://[email or web address]kf eGFR 93 >=60 mL/min/1.73 m?? [facility] Comment: The eGFR was calculated using the CKD-EP I equation. As with all creatinine based estimates of kidney function, eGFR values calculated with the CKD-EPI equation are not accurate in patients wi th acute kidney failure, extremes of body mass or the acutely ill. [email or web address]kf Specimen Anatomical Collection Method Collection Time Receive d Time (Source) Location / / Volume Laterality Blood specimen 11/30/2019 8:30 PM 020 8:35 (specimen) EDT PM EDT Resulting Agency Comment Spec In Lab Gretchen Yoon MD CHEMISTRY ORDERABLES Performing Organization Address [facility] Phon e Number [address] Blood culture (11/30/2019 8:30 PM EDT) Patholo gist Method Time Signature Blood Culture No growth MELINA WHITTENCOCK at 5 days. [facility] Specimen Anatomical Collection Method Collection Time Receive d Time (Source) Location / / Volume Laterality Blood specimen 11/30/2019 8:30 PM 020 9:40 (specimen) EDT PM EDT Comment: L HAND Resulting Agency Comment Spec In Lab Gretchen Yoon MD MICROBIOLOGY - BLOOD ORDERAB LES Performing Organization Address [facility] Phon e Number [address] Blood culture (11/30/2019 8:30 PM EDT) Patholo gist Method Time Signature Blood Culture No growth MELINA MARSHDOV at 5 days. [facility] Specimen Anatomical Collection Method Collection Time Receive d Time (Source) Location / / Volume Laterality Blood specimen 11/30/2019 8:30 PM 020 9:40 (specimen) EDT PM EDT Comment: R HAND Resulting Agency Comment Spec In Lab Gretchen Yoon MD MICROBIOLOGY - BLOOD ORDERAB LES Performing Organization Address City/State/ZIP Code Phon e Number MELINA [place] [phone]OS[address] LAB[address]ORY Drive XR Chest One View [...] Time Signature pH Art 7.45 7.35 - [facility] 7.45 [facility] pCO2 Art 27 (L) 35 - 45 [facility] mmHg [facility] pO2 Art 68 (L) 85 - 104 [facility] mmHg [facility] HCO3 Art 18.2 (L) 20.0 - [facility] 26.0 [facility] mmol/L [facility] BE Art -5.9 (L) -3.0 - 3.0 [facility] mmol/L [facility] Hgb Blood Gas 12.4 (L) 13.7 - [facility] 16.5 gm/dL [facility] O2HB Art 93.1 (L) 94.0 - [facility] 97.0 % [facility] COHB Art 0.8 % [facility] Comment: Nonsmokers: 0.5-1.5% COHB Smokers: Variable, but usually less than 10% Toxic: 20-30% COHB Lethal: Greater than 60% COHB METHB Art 0.4 <=1.5 % [facility] Na Whole Blood 133 (L) 135 - 145 mmol/L [facility] K Whole Blood [...] Whole Bld 121 65 - 199 mg/dL [facility] Comment: Diabetes: >=200 mg/dL plus symp toms. Lactate WB 1.2 0.5 - 2.2 mmol/L [facility] Flow Art 5.0 LPM [facility] Specimen Anatomical Collection Method Collection Time Receive d Time (Source) Location / / Volume Laterality Blood specimen 11/30/2019 8:09 PM 020 8:09 (specimen) EDT PM EDT Gretchen Yoon MD CHEMISTRY ORDERABLES Performing Organization Address City/State/Z[place] [address] Angiogram [place] (11/30/2019 4:36 PM EDT) Anatomical [...] signed by: Angel Luis Barboza MD, Radiology [place] ([phone]), at 11/30/2019 5:04 PM Narrative 11/30/2019 5:04 PM EDT EXAMINATION: CT HEAD WO CONTRAST (GENERIC), CT ANGIOGRAM [place] CLINICAL HISTORY: Headache, intracranial hemorrhage suspected F/U on known ICH - assessing for propaga tion TECHNIQUE: CT head performed without intravenous co ntrast administration. CT angiogram [place] 65 cc Omnipaque 350 administered [...] HEAD WO CONTRAST (GENERI C), CT ANGIOGRAM [place] CLINICAL HISTORY: Headache, intracranial hemorrhage suspected F/U on known ICH - assessing for propaga tion TECHNIQUE: CT head performed without intravenous co ntrast administration. CT angiogram [place] 65 cc Omnipaque 350 administered [...] signed by: Angel Luis Barboza MD, Radiology [place] ([phone]), at 11/30/2019 5:04 PM Gretchen Yoon MD IMG CT ORDERABLES CT [...] CT HEAD WO CONTRAST (GENERIC), CT ANGIOGRAM [place] CLINICAL HISTORY: Headache, intracranial hemorrhage suspected F/U on known ICH - assessing for propaga tion TECHNIQUE: CT head performed without intravenous co ntrast administration. CT angiogram [place] 65 cc Omnipaque 350 administered [...] HEAD WO CONTRAST (GENERI C), CT ANGIOGRAM [place] CLINICAL HISTORY: Headache, intracranial hemorrhage suspected F/U on known ICH - assessing for propaga tion TECHNIQUE: CT head performed without intravenous co ntrast administration. CT angiogram [place] 65 cc Omnipaque 350 administered [...] 453 ms MUSE SYSTEM (Bezet) Calculated P [place] 52 degrees MUSE SYSTEM Calculated R [place] 5 degrees MUSE SYSTEM Calculated T [place] -60 degrees MUSE SYSTEM INTERPRETATION Sinus rhythm [...] H ? (Age): 1945(74y) Med Rec#: ? [id number] ?Sex: ?M ? Site Loc: ? [facility] ?Ht / Wt: ??178(cm)/64(kg) Pt. Loc: ?CCU ? BSA: ?1.8 Study Date: ?? 11/30/2019 ?Pt. Type: Inpatient Tape: ? Referring: LAHEYMICHAELJ Reading: Tello Mejia ([id number]) Drilling Field Operator: Eve Lolita Diagnosis: *ST elevation (STEMI) [...] Vmax ?0.58 ? m/sec ? MV deceleration [id number] ? m sec ? MV A-wave Vmax [...] ? Mid-Inferior ?Akinetic ? Mid-Inferoseptal ?Normal ? [place]-Septal ? Normal ? [place]-Anterior ? Normal ? [place]-Lateral ?Normal ? [place]-Inferior ? Hypokinetic ? [place]-Tip ?Normal ? This report has been electronically sign ed by: _ Tello Mejia MD ? 11/30/2019 12: 45:27 Images reviewed and interpretation [email or web address] Procedure Note Tello Mejia MD - 11/30/2019Formatti ng of this note might be different from the original. Procedure: Transthoracic Echocardiogram Patient: RITA Corcoran DOB(Age): [birth year](74y) Med Rec#: [id number] Sex: M Site Loc: [facility] Ht / Wt: 178(cm)/64(kg) Pt. Loc: CCU BSA: 1.8 Study Date: 11/30/2019 Pt. Type: Inpatie nt Tape: Referring: GILMER Reading: Tello Mejia ([id number]) Drilling Field Operator: Eve Lolita Diagnosis: *ST elevation (STEMI) [...] MV E-wave Vmax 0.58 m/sec MV deceleration [id number] msec MV A-wave Vmax 0.74 m/sec MV [...] Hypokinetic Mid-Posterolateral Hypokinetic Mid-Inferior Akinetic Mid-Inferoseptal Normal [place]-Septal Normal [place]-Anterior Normal [place]-Lateral Normal [place]-Inferior Hypokinetic [place]-Tip Normal This report has been electronically sign ed by: _ Tello Mejia MD 11/30/2019 12:45:27 Images reviewed and interpretation verif ied [facility] Cardiac Ultrasound Laboratory Gretchen Yoon MD [...] For questions regarding this report, please [facility]. ? Narrative 11/30/2019 12:04 PM [...] signed by: Angel Luis Barboza MD, Radiology [place] ([phone]), at 11/30/2019 12:04 PM Gretchen Yoon MD IMG CT ORDERABLES Magnesium (11/30/2019 8:30 AM EDT) athologist Signature Magnesium 0.88 0.69 - 1.07 [facility] mmol/L [facility] Specimen Anatomical Collection Method Collection Time Receive d Time (Source) Location / / Volume Laterality Blood specimen Venous Draw / 11/30/2019 8:30 AM 2019 8:37 (specimen) Unknown EDT AM EDT Resulting Agency Comment Spec In Lab Rossy Winn MD CHEMISTRY ORDERABLES Performing Organization Address City/[facility]/[place] [address] (ABNORMAL) CK (11/30/2019 8:30 AM EDT) athologist Signature CK, Total 1,645 (H) 0 - 200 [facility] unit/[facility] Specimen Anatomical Collection Method Collection Time Receive d Time (Source) Location / / Volume Laterality Blood specimen 11/30/2019 8:30 AM 020 8:32 (specimen) EDT AM EDT Resulting Agency Comment Spec In Lab Gretchen Yoon MD CHEMISTRY ORDERABLES Performing Organization Address City/[facility]/[place] [address] (ABNORMAL) Troponin (11/30/2019 8:30 AM EDT) P athologist Signature Troponin-T 8.04 (H) 0.00 - MELINA MONAE 0.00 ng/mL [facility] Comment: result rechecked-rancho The [...] additional sample may be indicated. Reference: Third Delavan Definition of Myocardial Infarction. Journal of the [place] College [employer] 2012;60:1581-98 Specimen Anatomical Collection Method Collection Time Receive d Time (Source) Location / / Volume Laterality Blood specimen 11/30/2019 8:30 AM 020 8:32 (specimen) EDT AM EDT Resulting Agency Comment Spec In Lab Gretchen Yoon MD CHEMISTRY ORDERABLES Performing Organization Address City/State/ZIP Code [place] [address] EKG 12 Lead (11/30/2019 7:57 AM EDT) Component Value Ref Range Test Analysis Performed Pathologis t Method Time At Signature Ventricular rate 64 BPM MUSE SYSTEM Atrial Rate 64 BPM MUSE SYSTEM P-R Interval 132 ms MUSE SYSTEM QRS Duration 78 ms MUSE SYSTEM Q-T Interval 420 ms MUSE SYSTEM QTC Calculated 433 ms MUSE SYSTEM (Bezet) Calculated P [place] 28 degrees MUSE SYSTEM Calculated R [place] 7 degrees MUSE SYSTEM Calculated T [place] -33 degrees MUSE SYSTEM INTERPRETATION Sinus rhythm [...] Signature Glucose 147 (H) 65 - 99 [facility] Fasting mg/dL [facility] Comment: ?Fasting* Glucose Interpretive [...] of Diabetes Mellitus, Position Statement from the [place] [employer]. ??Diabete s Care, Volume 33, [...] of body mass or the acutely ill. [email or web address]://LEYIO/[email or web address]Ankf eGFR 98 >=60 mL/min/1.73 m?? [facility] Comment: The eGFR was calculated using the CKD-EP I equation. As with all creatinine based estimates of kidney function, eGFR values calculated with the CKD-EPI equation are not accurate in patients wi th acute kidney failure, extremes of body mass or the acutely ill. [email or web address] Specimen Anatomical Collection Method Collection Time Receive d Time (Source) Location / / Volume Laterality Blood specimen 11/30/2019 2:15 AM 020 2:29 (specimen) EDT AM EDT Resulting Agency Comment Spec In Lab Gretchen Yoon MD CHEMISTRY ORDERABLES Performing Organization Address City/State/Z[place] [address] (ABNORMAL) Hemogram (11/30/2019 2:15 AM EDT) Analysis Performed At Patho logist Time Signature WBC 11.2 (H) 4.0 - 9.5 [facility] x10(3)/[facility] LABORATORY RBC 3.83 (L) 4.58 - [facility] 5.54 [facility] x10(6)/[facility] LABORATORY Hemoglobin 11.4 (L) 13.7 - [facility] 16.5 gm/dL [facility] Hematocrit 35.2 (L) 40.5 - MELINA WHITTENCOCK 48.5 % [facility] MCV 91.9 82.9 - MELINA DOV 93.1 [facility] LABORATORY MCH 29.8 27.5 - MELINA MARSHDOV 32.1 pg [facility]ORY MCHC 32.4 32.0 - MELINA MARSHDOV 35.7 gm/dL [facility] Platelets 122 (L) 145 - 357 [facility] x10(3)/[facility] LABORATORY RDWSD 49.8 (H) 36.0 - MELINA MARSHDOV 45.0 [facility] LABORATORY RDWCV 14.8 (H) 11.4 - [facility] DOV 13.8 % [facility]ORY MPV 12.1 7.6 - 12.9 [facility] LABORATORY nRBC % Auto 0.0 % [facility]ORY nRBC Abs Auto 0.000 0.000 - MELINA DOV 0.000 [facility] x10(3)/[facility] LABORATORY Specimen Anatomical Collection Method Collection Time Receive d Time (Source) Location / / Volume Laterality Blood specimen 11/30/2019 2:15 AM 020 2:29 (specimen) EDT AM EDT Resulting Agency Comment Spec In Lab Gretchen Yoon MD HEMATOLOGY ORDERABLES Performing Organization Address City/[facility]/[place] [address] (ABNORMAL) CK (11/30/2019 2:15 AM EDT) athologist [facility] CK, Total 1,969 (H) 0 - 200 MELINA DOV unit/L [facility] Specimen Anatomical Collection Method Collection Time Receive d Time (Source) Location / / Volume Laterality Blood specimen 11/30/2019 2:15 AM 020 2:29 (specimen) EDT AM EDT Resulting Agency Comment Spec In Lab Gretchen Yoon MD CHEMISTRY ORDERABLES Performing Organization Address City/[facility]/[place] [address] (ABNORMAL) Troponin (11/30/2019 2:15 AM EDT) athologist Signature Troponin-T 11.73 (H) 0.00 - MELINA MONAE 0.00 ng/mL [facility] Comment: result rechecked-slw The [...] additional sample may be indicated. Reference: Third Delavan Definition of Myocardial Infarction. Journal of the [place] College [employer] 2012;60:1581-98 result rechecked- The [...] additional sample may be indicated. Reference: Third [place] Definition of Myocardial Infarction. Journal of the [place] College [employer]iology 2012;60:1581-98 Corrected from 11.73 ng/ml [HI] on 11/29 3:11:51 EDT by Debi Hawley Specimen Anatomical Collection Method Collection Time Receive d Time (Source) Location / / Volume Laterality Blood specimen 11/30/2019 2:15 AM 020 2:29 (specimen) EDT AM EDT Resulting Agency Comment Spec In Lab Gretchen Yoon MD CHEMISTRY ORDERABLES Performing Organization Address City/[facility]/ZIP Code Phon e Number [address] LDL Cholesterol, Direct (11/30/2019 2:15 AM EDT) P athologist Signature LDL Chol 156 mg/dL [facility] LABORATORY Comment: Lowest Risk: <100 mg/dL Lower Risk: 100-129 mg/dL Borderline High Risk: 130-159 mg/dL High Risk: 160-189 mg/dL Very High Risk: >lg=624 mg/dL Specimen Anatomical Collection Method Collection Time Receive d Time (Source) Location / / Volume Laterality Blood specimen 11/30/2019 2:15 AM 020 2:29 (specimen) EDT AM EDT Resulting Agency Comment Spec In Lab Gretchen Yoon MD CHEMISTRY ORDERABLES Performing Organization Address City/[facility]/ZIP [facility] [place] [address] (ABNORMAL) Hemoglobin A1c (11/30/2019 [...] Avg Gluc See note mg/dL MELINA MONAE [facility] LABORATORY Comment: Estimated Average Glucose not [...] into estimated average glucose values. ??Diabetes Care 2008:31(8):0861-4259. Specimen Anatomical Collection Method Collection Time Receive d Time (Source) Location / / Volume Laterality Blood specimen 11/30/2019 2:15 AM 020 2:29 (specimen) EDT AM EDT Resulting Agency Comment Spec In Lab Gretchen Yoon MD CHEMISTRY ORDERABLES Performing Organization Address City/State/ZIP Code [place] [address] Lipid Panel (Reflex Direct LDL) (11/30/2019 2:15 AM EDT) athologist Signature Chol, Total 195 mg/dL [facility] LAB[facility]ORY Comment: Lower Risk: <200 mg/dL Average Risk: 200-239 mg/dL Higher Risk: >fj=365 mg/dL Triglycerides 93 mg/dL [facility] LABORATORY Comment: Average Risk/Lower Risk: <150 mg/dL Borderline High Risk: 150-199 mg/dL High Risk: 200-499 mg/dL Very High Risk: >tu=664 mg/dL HDL 32 mg/dL [facility] Comment: Males: ?? Higher Risk: <40 mg/dL Females: ?? HIgher Risk: <50 mg/dL LDL Cholesterol 144 mg/dL [facility] LABOR[facility]ORY Comment: Lowest Risk: <100 mg/dL Lower Risk: 100-129 mg/dL Borderline High Risk: 130-159 mg/dL High Risk: 160-189 mg/dL Very High Risk: >wl=022 mg/dL Chol/HDL Ratio 6.1 ratio [facility] LABORATORY Lipid Interpretation See Note [facility] LABORATORY Comment: Lipid management should be guided by a p atient? s ASCVD risk, goals and preferences. ACC/AHA Guidelines recommend high intens ity statin if clinical ASCVD or LDL greater than or equal to 190 mg/dL. http://[employer]/BHX-ADE-Bzsoptzzx Adults aged 40-75 with LDL 70-189 mg/dL should have their 10 year ASCVD risk estimated with the ACC/AHA ASCVD risk es timator http://tools.acc.org/MBKZE-Lqcv-Fgyzqdpp r/ Statin should be discussed if risk [...] Organization Address City/State/ZIP Code Phon e Number [address] (ABNORMAL) CK (11/29/2019 6:35 PM EDT) athologist Signature CK, Total 2,780 (H) 0 - 200 [facility] unit/L [facility] LABORATORY Specimen Anatomical Collection Method Collection Time Receive d Time (Source) Location / / Volume Laterality Blood specimen 11/29/2019 6:35 PM 020 6:53 (specimen) EDT PM EDT Resulting Agency Comment Spec In Lab Gretchen Yoon MD CHEMISTRY ORDERABLES Performing Organization Address City/[facility]/[place] [address] (ABNORMAL) Troponin (11/29/2019 6:35 PM EDT) athologist Signature Troponin-T 17.60 (H) [facility].00 [facility]/mL [facility] Comment: result rechecked-az The [...] additional sample may be indicated. Reference: Third Delavan Definition of Myocardial Infarction. Journal of the [place] [employer] 2012;60:1581-98 Specimen Anatomical Collection Method Collection Time Receive d Time (Source) Location / / Volume Laterality Blood specimen 11/29/2019 6:35 PM 020 6:53 (specimen) EDT PM EDT Resulting Agency Comment Spec In Lab Gretchen Yoon MD CHEMISTRY ORDERABLES Performing Organization Address City/State/ZIP Code Phon e Number [place] [id number] EKG 12 Lead (11/29/2019 3:58 PM EDT) [facility] gist Method Time Signature Ventricular rate 73 BPM MUSE SYSTEM Atrial Rate 73 BPM MUSE SYSTEM P-R Interval 152 ms MUSE SYSTEM QRS Duration 84 ms MUSE SYSTEM Q-T Interval 404 ms MUSE SYSTEM QTC Calculated 445 ms MUSE SYSTEM (Bezet) Calculated P [place] 50 degrees MUSE SYSTEM Calculated R [place] -4 degrees MUSE SYSTEM Calculated T [place] 19 degrees MUSE SYSTEM INTERPRETATION Sinus rhythm [...] Concepcion MD ECG ORDERABLES Performing Organization Address City/[facility]/ZIP Code Phon e Number MUSE SYSTEM [...] CLINICAL HISTORY: stemi (as entered by o [facility] provider in the order [...] lung apex is excluded from the imaged [id number]. IMPRESSION: 1. ??New right internal jugular pulmonar [...] lung apex is excluded from the imaged [id number]. Procedure Note Estefani Harris MD - 11/29/2019Formattin [...] lung apex is excluded from the imaged [id number]. IMPRESSION 1. New right internal jugular pulmonary [...] Differential, Automated (11/29/2019 2:32 PM EDT) [facility] Method Time Signature Neutrophils % 83.8 % [facility] LABORATORY Neutr Abs (ANC) 12.12 (H) 1.70 - [facility] 6.10 [facility] x10(3)/[facility] LABORATORY Lymphocytes % 9.1 % [facility] LABORATORY Lymphocytes Abs 1.3 0.9 - 3.2 [facility] x10(3)/[facility] LABORATORY Monocytes % 6.2 % [facility] LABORATORY Monocyte Abs 0.9 0.3 - 0.9 [facility] x10(3)/[facility] LABORATORY Eosinophils % 0.0 % [facility] LABORATORY Eosinophils Abs 0.0 0.0 - 0.4 [facility] x10(3)/[facility] LABORATORY Basophils % 0.3 % [facility] LABORATORY Basophils Abs 0.0 0.0 - 0.1 [facility] x10(3)/[facility] LABORATORY Immature Gran % 0.60 [...] Abs 0.08 (H) 0.00 - 0.04 x10(3)/[facility] LABORATORY Specimen Anatomical Collection Method Collection Time Receive d Time (Source) Location / / Volume Laterality Blood specimen 11/29/2019 2:32 PM 020 2:55 (specimen) EDT PM EDT Resulting Agency Comment Spec In Lab Darrell Glasgow MD HEMATOLOGY ORDERABLES Performing Organization Address City/State/[place] [address] (ABNORMAL) Hemogram (11/29/2019 2:32 PM EDT) Analysis Performed At Patho logist Time Signature WBC 14.5 (H) 4.0 - 9.5 [facility] LABORATORY RBC 4.53 (L) 4.58 - [facility] DOV 5.54 [facility] x10(6)/[facility] LABORATORY Hemoglobin 13.1 (L) 13.7 - [facility] 16.[facility] gm/dL [facility] Hematocrit 40.8 40.5 - [facility] DOV 48.5 % [facility] LAB[facility]ATORY MCV 90.1 82.9 - [facility] 93.1 [facility] LABORATORY MCH 28.9 27.5 - [facility] DOV 32.1 pg [facility] LABORATORY MCHC 32.1 32.0 - [facility] DOV 35.7 gm/dL [facility] LABORATORY Platelets 184 145 - 357 [facility] x10(3)/[facility] LABORATORY RDWSD 47.8 (H) 36.0 - [facility] DOV 45.0 [facility] LABORATORY RDWCV 14.5 (H) 11.4 - [facility] DOV 13.8 % [facility] LABORATORY MPV 11.9 7.6 - 12.9 [facility] LABORATORY nRBC % Auto 0.0 % [facility] LABORATORY nRBC Abs Auto 0.000 0.000 - [place] 0.000 [facility] x10(3)/[facility] LABORATORY Specimen Anatomical Collection Method Collection Time Receive d Time (Source) Location / / Volume Laterality Blood specimen 11/29/2019 2:32 PM 020 2:55 (specimen) EDT PM EDT Resulting Agency Comment Spec In Lab Darrell Glasgow MD HEMATOLOGY ORDERABLES Performing Organization Address City/[facility]/ZIP Code Phon e Number [address] (ABNORMAL) CK (11/29/2019 2:32 PM EDT) athologist Signature CK, Total 3,282 (H) 0 - 200 [facility] unit/L [facility] LABORATORY Specimen Anatomical Collection Method Collection Time Receive d Time (Source) Location / / Volume Laterality Blood specimen 11/29/2019 2:32 PM 020 2:32 (specimen) EDT PM EDT Resulting Agency Comment Spec In Lab Gretchen Yoon MD CHEMISTRY ORDERABLES Performing Organization Address City/[facility]/[place] [address] (ABNORMAL) Troponin (11/29/2019 2:32 PM EDT) athologist Signature Troponin-T 20.33 (H) 0.00 - [place] 0.00 ng/mL [facility] LABORATORY Comment: The 99th percentile [...] additional sample may be indicated. Reference: Third Delavan Definition of Myocardial Infarction. Journal of the [place] [employer] 2012;60:1581-98 Specimen Anatomical Collection Method Collection Time Receive d Time (Source) Location / / Volume Laterality Blood specimen 11/29/2019 2:32 PM 020 2:32 (specimen) EDT PM EDT Resulting Agency Comment Spec In Lab Gretchen Yoon MD CHEMISTRY ORDERABLES Performing Organization Address [facility] [place] [place] [address] (ABNORMAL) APTT (11/29/2019 2:32 PM EDT) P athologist Signature PTT 114 25 - 37 [facility] (Critical) [facility] LABORATORY Comment: Critical Result called by [...] Yoon MD HEMATOLOGY ORDERABLES Performing Organization Address City/[facility]/ZIP [place] [address] (ABNORMAL) Prothrombin Time (11/29/2019 [...] Organization Address City/State/[place] [address] (ABNORMAL) Hepatic Function Panel (11/29/2019 2:32 PM EDT) athologist Signature Total Protein 6.3 6.1 - 8.0 [facility] DOV gm/dL [facility] LABORATORY Albumin 3.6 3.2 - 5.2 [place] DOV gm/dL [facility] LABORATORY AST 257 (H) 0 - 39 [facility] DOV unit/L [facility] LAB[facility] ALT 50 0 - 55 [facility] DOV unit/L [facility] LABORATORY Alk Phos 84 40 - 130 [facility] DOV unit/L [facility] LABORATORY Total 0.3 0.2 - 1.3 [place] DOV Bilirubin mg/dL [facility] LABORATORY Bili, Direct 0.1 0.0 - 0.3 [facility] DOV mg/dL [facility] LABORATORY Specimen Anatomical Collection Method Collection Time Receive d Time (Source) Location / / Volume Laterality Blood specimen 11/29/2019 2:32 PM 020 2:32 (specimen) EDT PM EDT Resulting Agency Comment Spec In Lab Gretchen Yoon MD CHEMISTRY ORDERABLES Performing Organization Address City/State/[place] [address] (ABNORMAL) pro-Brain Natriuretic Peptide [...] Yoon MD CHEMISTRY ORDERABLES Performing Organization Address City/[facility]/ZIP Code Phon e Number [address] Magnesium (11/29/2019 2:32 PM EDT) athologist Signature Magnesium 0.76 0.69 - 1.07 [facility] mmol/L [facility] LABORATORY Specimen Anatomical Collection Method Collection Time Receive d Time (Source) Location / / Volume Laterality Blood specimen 11/29/2019 2:32 PM 020 2:32 (specimen) EDT PM EDT Resulting Agency Comment Spec In Lab Gretchen Yoon MD CHEMISTRY ORDERABLES Performing Organization Address City/[facility] [address] (ABNORMAL) Basic Metabolic Panel (non-fasting) (11/29/2019 2:32 PM EDT) athologist Signature Glucose Lvl 149 65 - 199 [facility] mg/dL [facility] LABORATORY Comment: Diabetes: >=200 mg/dL [...] of body mass or the acutely ill. [email or web address] eGFR 93 >=60 mL/min/1.73 m?? [facility] LABORATORY Comment: The eGFR was calculated using the CKD-EP I equation. As with all creatinine based estimates of kidney function, eGFR values calculated with the CKD-EPI equation are not accurate in patients wi th acute kidney failure, extremes of body mass or the acutely ill. [email or web address] Specimen Anatomical Collection Method Collection Time Receive d Time (Source) Location / / Volume Laterality Blood specimen 11/29/2019 2:32 PM 020 2:32 (specimen) EDT PM EDT Resulting Agency Comment Spec In Lab Gretchen Yoon MD CHEMISTRY ORDERABLES Performing Organization Address City/State/ZIP Code Phon e Number [place] [id number] LAB[address] EKG 12 Lead (11/29/2019 11:38 AM EDT) [facility] gist Method Time Signature Ventricular rate 60 BPM MUSE SYSTEM Atrial Rate 60 BPM MUSE SYSTEM P-R Interval 140 ms MUSE SYSTEM QRS Duration 86 ms MUSE SYSTEM Q-T Interval 474 ms MUSE SYSTEM QTC Calculated 474 ms MUSE SYSTEM (Bezet) Calculated P [place] 48 degrees MUSE SYSTEM Calculated R [place] 14 degrees MUSE SYSTEM Calculated T [place] 58 degrees MUSE SYSTEM INTERPRETATION Normal sinus [...] Laterality Volume Narrative 11/30/2019 1:09 PM EDT ?[facility] ? Cardiac Cathete rization/Intervention Report ? Patient Name: Angel Luis Salinas. ? Procedure Date: 11/29/2019 ? A #: [id number] ? Primary Physician: Gretchen Yoon ? Case #: [id number] ? File Name: [id number] ? Catheterization Order Number: [id number] ? [facility] ? Final Report [place], [place] ? Patient Name: ? Angel Luis Salinas ? ID#: ?[id number] ? : ?1945 ? Procedure Date: ? [...] was Emergent. The indication for ?the laboratory equipment cleaner visit is ACS less than or equal [...] administered prior to arrival in the laboratory equipment cleaner. ?Recommended anti-platelet/anti- thrombotic regimen: ?Continue aspirin 81 mg daily fo r indefinitely. ?Continue clopidogrel 75 mg marco a y for 12 months then stop. ?These recommendations are made at the time of the intervention. Patient ?and provider preferences or a c hanging clinical situation may require ?modification of this regimen. C onsult [facility] Interventional Cardiology for ?questions. ? [...] note might be different from the original. [facility] Cardiac Catheterization/Intervention Re port Patient Name: Angel Luis Salinas Procedure Date: 11/29/2019 A #: [id number] Primary Physician: Gretchen Yoon Case #: [id number] File Name: [id number] Catheterization Order Number: [id number] [facility] Final Report [place], [place] Patient Name: Angel Luis Salinas ID#: [id number] : 1945 Procedure Date: November 29, [...] was designated as ASA Class IV. The [facility] clinical frailty scale is 4: Vulnerable. Diagnostic Tests: Electrocardiography: EKG was assessed by ECG. EKG was Abnorm al. EKG showed ST Deviation >= 0.5 mm. Medications Prior to Procedure: Aspirin. Indications for Diagnostic Cath: The priority of the diagnostic procedur e was Emergent. The indication for the laboratory equipment cleaner visit is ACS less than or equal [...] prior t o arrival in the laboratory equipment cleaner. Recommended anti-platelet/anti-thrombot ic regimen: Continue aspirin 81 [...] Signature POC pH 7.33 (L) 7.35 - [facility] 7.45 [facility] LABORATORY POC PCO2 33 (L) 35 - 45 [facility] mmHg [facility] LABORATORY POC PO2 56 (L) 85 - 104 [facility] LABORATORY POC Base Excess -8.0 (L) -3.0 - 3.0 [facility] K mmol/L [facility] LABORATORY POC HCO3 17.4 (L) 20.0 - [facility] 26.0 [facility] POC Sodium 137 135 - 145 [facility] mmol/L [facility] LABORATORY POC Potassium 3.6 3.5 - 5.0 [facility] mmol/L [facility] LABORATORY POC Ionized Ca 1.15 1.15 - [facility] 1.33 [facility]INTER[facility] LAB[facility] POC Hematocrit 37.0 (L) 40.0 - [facility] 51.0 % [facility] LABORATORY POC Calc Hgb 12.6 (L) 13.7 - [facility] 17.5 gm/dL [facility] LABORATORY Comment: The calculation of hemoglobin f rom hematocrit assumes a normal MCHC. POC Bgas Loc CC LAB [facility] LABORATORY Specimen Anatomical Collection Method Collection Time Receive d Time (Source) Location / / Volume Laterality Blood specimen 11/29/2019 9:17 AM 020 7:35 (specimen) EDT AM EDT Gretchen Yoon MD CHEMISTRY ORDERABLES Performing Organization Address City/State/ZIP [place] [address] EKG 12 Lead (11/29/2019 9:01 AM EDT) Component Value Ref Range Test Analysis Performed Pathologis t Method Time At Signature Ventricular rate 80 BPM MUSE SYSTEM Atrial Rate 79 BPM MUSE SYSTEM QRS Duration 94 ms MUSE SYSTEM Q-T Interval 436 ms MUSE SYSTEM QTC Calculated 502 ms MUSE SYSTEM (Bezet) Calculated R [place] 54 degrees MUSE SYSTEM Calculated T [place] 80 degrees MUSE SYSTEM INTERPRETATION Normal sinus [...] 150 mg, Intravenous, ONCE, 1 dose, On [place] 12/07/19 at 1315, Warning Vesicant/Irritant Medication , [...] mL/hr 250 mL/hr, Intravenous, CONTINUOUS, Starting on [place] 12/07/19 at 0145, Until 12/07/19 at 0239 levoFLOXacin (LEVAQUIN) 750 mg in New Bag 11/30/2019 11:03 PM EDT 750 mg 100 mL/hr dextrose 5% 150 mL 750 mg, Intravenous, at 100 mL/hr, EVERY 24 HOURS, First dose on 11/30/19 at 2300, Until Discontinued, Routine, Indication [...] ONCE, 1 dose, 12/06/19 at 0515, Ad crepe sole wire brusher over 120 Minutes magnesium sulfate 2 g [...] [place] PROTOCOL, Starting 12/06/19 at 0926, Until 12/08/19 [...] Starting 12/07/19 at 1236, Until Sun12/08/19 at 1811, [...] DAILY PRN, Starting Sun at 0615, Until 12/08/19 at 1811, [...] patch), Transdermal, DAILY, Fir st dose on [place] 11/30/19 at 1615, Until Discontinued, Routine And [...] Oral, EVERY 4 HOURS PRN, Startin g [place] 11/30/19 at 2017, Until Sun12/08/19 at 1811, hypokalemia
Administer for serum potassium (mMol/L) of 3.9 - 4 See instructions for Potassium Protocol in online policies.
Routine Or potassium chloride ER (K-Dur/Klor-Con) tablet 40 mEqJump to med 40 mEq, Oral, EVERY 4 HOURS PRN, Startin g [place] 11/30/19 at 2016, Until Sun12/08/19 at 1811, hypokalemia
Administer for serum potassium (mMol/L) of 3.6 - 3.8 See instructions for Potassium Protocol in online policies.
Routine documented in this encounter Care Teams [employer] Relationship Specialty Start Date End Date France Lam MD PCP - General 05/02/13 02/04/20 [address] [place] [address] documented as of this encounter
--- OUTSIDE RECORDS SUMMARY | 2022-05-23 11:09 | XMS_ITS | Encounter Summary ---
:1945 Author Organization [facility] [place] [address] Care Team Providers Name Role Phone France Lam MD Primary Care Provider Encounter Details Date Type Department Care Team Description 11/29/2019 External Results [facility] [place] [phone] Social History Tobacco Use Types Packs/Day Years Used Date Smoking Tobacco: Every Day Cigarettes 0.5 Cigars Sex Assigned at Date Recorded Not on file documented as of this encounter Plan of Treatment Upcoming Encounters Date Type Specialty Care Team Description 06/30/2022 Office Visit Endocrinology Alan Terrell MD [facility] ER ENDOCRINOLOGY [place], [place] [address] (Wo rk) documented as of [...] on filedocumented in this encounter Care Teams Leather Grainer Relationship Specialty Start Date End Date France Lam MD PCP - General 05/02/13 02/04/20 [address] [place] [address] documented as of this encounter
--- OUTSIDE RECORDS SUMMARY | 2022-05-23 11:09 | XMS_ITS | Encounter Summary ---
:1945 Author Organization [facility] [address] Care Team Providers Name Role Phone France Lam MD Primary Care Provider Reason for Visit Auth/Cert Specialty Diagnoses / Procedures Referred By Contact Refer red To Contact Diagnoses STEMI (ST elevation myocardial infarction) STEMI Procedures CARDIAC CATHETERIZATION Referral ID Status Reason Start Date Expiration Date Visits Requ ested Visits Authorized [id number] 1 1 Encounter Details Date Type Department Care Team Description 11/29/2019 Surgery Stage Electrician Helper Gretchen Corral, CARDIAC CATHETERIZATION [facility] [place] [address] [place] [id number] (Wo rk) Social History Tobacco Use Types [...] Luis Salinas Patient Age: 74 y.o. Language: Norwegian Race: White Ethnicity: Not nor Admit date: [...] months on: antiplatelet therapy at discretion of glass mechanic - Repeat TTE in 3 months to reassess LV function - Repeat BMP in 1-2 weeks given recent start lisinopril - Referred to lipid clinic for consideration of PCSK-9 inhibitor given STEMI with intolerance of statins - Started on amiodarone this admission for recurrent rapid atrial flutter with rates ~170, recommendcontinued assessment of necessity of rhythm control strategy with glass mechanic - Amiodarone monitoring recommendations as below - [...] through the [facility] Jukebox Checker . Issues after hours and on weekends [...] up to 10mcg/min. He was transferred to [facility] after the cath procedure. Bedside RHC [...] drip as described above. [facility] [...] the medication [place] was prohib[place] pharmacy. He was strongly encouraged to quit [...] priority for the procedure was Emergent. [facility] was STEMI (after [...] Estefani Harris [facility] ([phone]), at 11/29/2019 4:[address] Head wo [...] Barboza MD, [facility] ([phone]), at 11/30/2019 12:[address] Head wo [...] below. Electronically signed by: Angel [facility] ([phone]), at 11/30/2019 5:[address] Angiogram [place] (Exam End: 11/30/2019 4:36 PM) [...] Barboza MD, [facility] ([phone]), at 11/30/2019 5:04 PM MRI Brain wo [...] Barboza MD, [facility] ([phone]), at 12/01/2019 8:02 PM XR Chest One [...] Latoya Ivey [facility] ([phone]), at 11/30/2019 8:[address] Head wo [...] Merari Collins [facility] ([phone]), at 12/01/2019 3:53 PM XR Chest One View (Exam End: 12/02/2019 1:00 PM) Impression Slightly increased small bibasilar pleural effusions and atelectasis. Thank you for letting us participate in the care of this patient. For questions regarding this report, please contact the number below. Electronically signed by: Ashly Marley [facility] ([phone]), at 12/02/2019 1:[address] Cardiac for [...] Roselyn Luciano [facility] ([phone]), at 12/04/2019 6:16 PM MRI Brain wwo Contrast (Generic) (Exam End: 12/05/2019 7:59 PM) Impression No significant interval change. Thank you for letting us participate in the care of this patient. For questions regarding this report, please contact the number below. Electronically signed by: Merari Collins [facility] ([phone]), at 12/05/2019 10:[address] Head wo [...] Merari Collins [facility] ([phone]), at 12/06/2019 10:06 PM Pending Studies and Lab Data: N/A Discharge Conditions/Prognosis: stable Discharge to: home Updated Allergies/ADRs: Allergies Allergen Reactions ??? Penicillins Pt doesn't remember reaction ??? Jfaejbi-Udj-Cok Reductase Inhibitors Stiff neck, upset stomach, back [...] FOR ONE MONTH AND THEN STOP. Your glass mechanic may tell you to start this medication again after one year. Clopidogrel (Plavix) 75 mg daily - This medication will help prevent clots from forming in your blood, which will help protect the stent that was placed in your heart vessel. TAKE THIS FOR ONE YEAR ANDTHEN DISCUSS WITH YOUR VAULT ATTENDANT WHETHER TO STOP. Amiodarone 400mg twice daily [...] follow up: Your primary care provider and glass mechanic will manage your blood thinner (apixaban). You do not need lab monitoring of this medication. Diet: Please consume a healthy diet low in cholesterol Follow up Appointments: 12/10/2019 at 3:10PM with PCP Angel Luis Lott Future Appointments Date Time Provider Department Center 12/23/2019 1:30 PM Alfreda Salas APRN [facility] CLUOY4A [facility] 12/26/2019 9:40 AM Merlin Sanchez MD [facility] CARD 4A [facility] 12/30/2019 3:40 PM Gretchen Yoon MD [address] Future Appointments and Orders Future Appointments and Orders Future Appointments Provider Department Dept Phone 12/23/2019 1:30 PM Alfreda Salas APRN Neurosurgery at [facility] Arrive at: Home [phone] Please do not come in for this visit. Your provider will call you at the number you provided. 12/26/2019 9:40 AM Merlin Sanchez MD Cardiology at [facility] Arrive at: Home [phone] Please do not come in for this visit. Your provider will call you at the number you provided. 12/30/2019 3:40 PM Gretchen Yoon MD Cardiology at [facility] Arrive at: Home [phone] Please do not come in for this visit. Your provider will call you at the number you provided. Future Orders Complete By Expires Referral to Cardiac Rehab [[id number] Custom] As directed Process Instructions: If no [...] Referral to Home Health - at DISCHARGE [ZLF7358 CPT(R)] As directed Process Instructions: Scheduling Instructions: Comments: DOCUMENTATION FOR VNA SERVICES PATIENT'S LOCATION: [address] [address] (home) Telemetry Rn's Name: Self In discussion with the attending physician, it is certified that this patient is under his/her care and that MD, or an TOOL MAINTENANCE TECHNICIAN, PROCTOLOGIST, or PA who is working directly with him/her, had a qjnl-ur-xvrk encounter that meets the physician fmbv-cp-ohdg encounter requirements with this patient on 12/07/2019. [...] for managing ADLs. HOME HEALTH CARE AGENCY: [facility], PHONE: [phone] FAX: [phone] Start of care: 24-48 hours after hospital [...] Lam MD [address] / [place] [address] All A agencies which cover the area of patient's residence have been reviewed, either verbally or in writing, and patient/family have chosen the home health care agency noted. Questions: Agency name and contact information: [facility] Patient location post discharge: Home What services are requested: Registered Nurse Physical Therapy Occupational Therapy Start date: Responsible MD post discharge contact info: PCP Your PCP: France Lam MD [phone] For questions regarding this document or issues relating to this hospitalization on the Cardiology Service, please contact your inpatient physician through the [facility] Jukebox Checker . Issues after hours and on weekends will be handled by the Varnish Mixer on-call. Patient Instructions: Neurology Your Diagnosis: Left [...] [facility] [place] [phone] Please do not come in for this visit. Your provider will call you at the number you provided. 12/26/2019 9:40 AM Merlin Sanchez MD Cardiology at [facility] Arrive at: Home [phone] Please do not come in for this visit. Your provider will call you at the number you provided. 12/30/2019 3:40 PM Gretchen Yoon MD Cardiology at [facility] Arrive at: Home [phone] Please do not come in for this visit. Your provider will call you at the number you provided. Future Orders Complete By Expires Referral to Cardiac Rehab [[id number] Custom] As directed Process Instructions: If no [...] Referral to Home Health - at DISCHARGE [[id number] CPT(R)] As directed Process Instructions: Scheduling Instructions: Comments: DOCUMENTATION FOR VNA SERVICES PATIENT'S LOCATION: [address] [address] (home) Telemetry Rn's Name: Self In discussion with the attending physician, it is certified that this patient is under his/her care and that MD, or an TOOL MAINTENANCE TECHNICIAN, PROCTOLOGIST, or PA who is working directly with him/her, had a yuun-mr-wixt encounter that meets the physician umfs-kn-tvrx encounter requirements with this patient on 12/07/2019. [...] for managing ADLs. HOME HEALTH CARE AGENCY: [facility], PHONE: [phone] FAX: [phone] Start of care: 24-48 hours after hospital [...] MD [address] / [place] [address] All A agencies which cover the area of patient's residence have been reviewed, either verbally or in writing, and patient/family have chosen the home health care agency noted. Questions: Agency name and contact information: [facility] Patient location post discharge: Home What services are requested: Registered Nurse Physical Therapy Occupational Therapy Start date: Responsible MD post discharge contact info: PCP Discharge References/Attachments Atrial Fibrillation (Norwegian) Cardiac Rehabilitation (Norwegian) Heart Failure (Norwegian) Heart Failure: Limiting Sodium (Norwegian) Hemorrhagic Stroke: General Info (Norwegian) Smoking: Stopping (Norwegian) Stroke Rehabilitation: General Info (Norwegian) Pulmonary Embolism (Norwegian) Riki Stevens MD PGY-3, Internal Medicine Cardiology S2, #[id number] Associated attestation - Paris Dodd MD - 12/09/2019 4:44 PM EDT Cardiology Attending Discharge Addendum I was the assigned attending glass mechanic for this clinical encounter. For the purposes [...] complications include novel onset, paroxysmal atrial fibrillation [[id number]: 5] & L-sided diplopia with potential hemineglect [...] My contact information: Paris Matt MD MPH [address] [address] (office); Pager #[phone] Email: [email or web address] documented in this encounter Discharge Instructions Patient [...] FOR ONE MONTH AND THEN STOP. Your glass mechanic may tell you to start this medication again after one year. Clopidogrel (Plavix) 75 mg daily - This medication will help prevent clots from forming in your blood, which will help protect the stent that was placed in your heart vessel. TAKE THIS FOR ONE YEAR ANDTHEN DISCUSS WITH YOUR VAULT ATTENDANT WHETHER TO STOP. Amiodarone 400mg twice daily [...] follow up: Your primary care provider and glass mechanic will manage your blood thinner (apixaban). You do not need lab monitoring of this medication. Diet: Please consume a healthy diet low in cholesterol Follow up Appointments: 12/10/2019 at 3:10PM with PCP Angel Luis Lott Future Appointments Date Time Provider Department Center 12/23/2019 1:30 PM Alfreda Salas APRN [facility] [id number] [facility] 12/26/2019 9:40 [...] [facility] [place] at: Home [phone] Please do not come in for this visit. Your provider will call you at the number you provided. 12/26/2019 9:40 AM Merlin Sanchez MD Cardiology at [facility] Arrive at: Home [phone] Please do not come in for this visit. Your provider will call you at the number you provided. 12/30/2019 3:40 PM Gretchen Yoon MD Cardiology at [facility] Arrive at: Home [phone] Please do not come in for this visit. Your provider will call you at the number you provided. Future Orders Complete By Expires Referral to Cardiac Rehab [[id number] Custom] As directed Process Instructions: If no [...] Referral to Home Health - at DISCHARGE [CPL9615 CPT(R)] As directed Process Instructions: Scheduling Instructions: Comments: DOCUMENTATION FOR VNA SERVICES PATIENT'S LOCATION: [address] [address] (home) Telemetry Rn's Name: Self In discussion with the attending physician, it is certified that this patient is under his/her care and that MD, or an TOOL MAINTENANCE TECHNICIAN, PROCTOLOGIST, or PA who is working directly with him/her, had a ujio-zi-abji encounter that meets the physician ilsu-qi-upuc encounter requirements with this patient on 12/07/2019. [...] for managing ADLs. HOME HEALTH CARE AGENCY: [facility], PHONE: [phone] FAX: [phone] Start of care: 24-48 hours after hospital [...] MD [address] / [place] [address] All A agencies which cover the area of patient's residence have been reviewed, either verbally or in writing, and patient/family have chosen the home health care agency noted. Questions: Agency name and contact information: [facility] Patient location post discharge: Home What services are requested: Registered Nurse Physical Therapy Occupational Therapy Start date: Responsible MD post discharge contact info: PCP Your PCP: France Lam MD [phone] For questions regarding this document or issues relating to this hospitalization on the Cardiology Service, please contact your inpatient physician through the [facility] Jukebox Checker . Issues after hours and on weekends will be handled by the Varnish Mixer on-call. Patient Instructions: Neurology Your Diagnosis: Left [...] be sent through Care Everywhere. Atrial Fibrillation (Norwegian)Cardiac Rehabilitation (Norwegian)Heart Failure (Norwegian)Heart Failure: Limiting Sodium (Norwegian)Hemorrhagic Stroke: General Info (Norwegian)Smoking: Stopping (Norwegian)Stroke Rehabilitation: General Info (Norwegian)Pulmonary Embolism (Norwegian)documented in this encounter Medications at Time of [...] consulted in the interim. Vikash Rodriguez Pager: [phone] Paris Dodd MD - 12/08/2019 8:57 AM EDT Cardiology Service Attending Daily Progress Note Patient: Angel Luis Salinas : 1945 Date of Admission: 11/29/2019 Reason for Admission: AMI/stroke LOS: 9 Please see today's progress note from /NAMITA [...] complications include novel onset, paroxysmal atrial fibrillation [[id number]: 5] & L-sided diplopia with potential hemineglect [...] Cardiac Transplant Attending 12/08/2019, 8:57 AM Amaya Anderson, NIURKA - 12/07/2019 7:41 PM EDT Patient is [...] consulted in the interim. Vikash Rodriguez Pager: [phone] Paris Dodd MD - 12/07/2019 9:55 AM [...] complications include novel onset, paroxysmal atrial fibrillation [VKI6VA8YXPH: 5] & L-sided diplopia with potential hemineglect [...] complications include novel onset, paroxysmal atrial fibrillation [HHB9SP3GLXJ: 5] & L-sided diplopia with potential hemineglect [...] complications include novel onset, paroxysmal atrial fibrillation [FAT5WS8DLMD: 5] & L-sided diplopia with potential hemineglect [...] today; additional complications include paroxysmal atrial fibrillation [KNT7ZC1MQHJ: 4] c/b possible cardioembolic stroke, ICH from [...] ml Lines: PIV cumulative I/O's since admission: -,223cc Patient Vitals for the past 168 hrs: [...] length from neck/greatest diameter to back wall: LIBYAN 91, CAU 13: 19 mm CORTES 1, [...] a non-culprit artery. S/P DESx3 in the aauszams-jx-wydufe RCA. Aspiration thrombectomy performed, and integrellin bolus [...] complications include novel onset, paroxysmal atrial fibrillation [MDG6FV8NNJY: 5] & L-sided diplopia with potential hemineglect [...] R occipital cardioembolic stroke #Paroxysmal Afib with IX7UEPMO2O score of 5 #New segmental bilateral PEs [...] - Dispo:ICCU, pending afib and anticoagulation ?? aDrrell Glasgow MD PGY1, Internal Medicine Cardiology S2, #[id number] Associated attestation - Paris Dodd MD - 12/05/2019 2:59 PM EDT I was the assigned attending glass mechanic for this clinical encounter. For the purposes [...] 12/04/2019 10:36 AM EDT Office of Care Management(OCM)/Lead Project Engineer(CM)/Discharge Planning Service: Cardiology S2 team CM Bernie Alexander,RN,BSN,MA,ACM pgr [phone] Reviewed record and in Cardiology Rounds with MD team,CMs, rn first assistant, E BUSINESS MANAGER. Pt is anticipated ready for d/c later [...] complications include novel onset, paroxysmal atrial fibrillation [RHU1OW7CTNK: 4] & L-sided diplopia with potential hemineglect [...] a non-culprit artery. S/P DESx3 in the rdndmnks-kg-rnqccn RCA. Aspiration thrombectomy performed, and integrellin bolus [...] complications include novel onset, paroxysmal atrial fibrillation [WXZ8OD1WADH: 5] & L-sided diplopia with potential hemineglect [...] R occipital cardioembolic stroke #Paroxysmal Afib with VJ0BJLXB8Q score of 5 - No anticoagulation for [...] Glasgow MD PGY1, Internal Medicine Cardiology S2, #[id number] I have seen the patient and reviewed [...] in my clinic. Gretchen Yoon MD Pager [phone] Derian Pascual RN - 12/03/2019 9:29 AM [...] Discharge: None Electronically signed: Derian Pascual RN, Lead Project Engineer Pgr: [phone] 12/03/2019 9:29 AM Gretchen [...] complications include novel onset, paroxysmal atrial fibrillation [BEW4XB0PXIH: 4] & L-sided diplopia with potential hemineglect [...] a non-culprit artery. S/P DESx3 in the vuroqptx-fz-gzciof RCA. Aspiration thrombectomy performed, and integrellin bolus [...] complications include novel onset, paroxysmal atrial fibrillation [ZYY4TG1QQCV: 5] & L-sided diplopia with potential hemineglect [...] would like to see Dr. Mejia in [facility] and follow up with his PCP. Patient voiced strong will to quit smoking now, understood that we have resources available for help. Plan [P]: --Neurologic-- # Concern for Left-Sided Diplopia, r/o Hemineglect # Concern for CVA, last-known well 11/29/19 - MRI showed possible cardioembolic stroke #Afib with NC5BMLMY9V score of 5 - Stroke Team Consulted; [...] Anticoagulation/Arrhythmia # Novel Onset, Paroxsymal Atrial Fibrillation [XOM2FH3PPFL: 5] - Hold off anticoagulation for at [...] Glasgow MD PGY1, Internal Medicine Cardiology S2, #9290 I have seen the patient and reviewed the resident's above history and I agree with the details as written. The assessment and plan were formulated in discussion with me and I agree with them as documented. Gretchen Yoon MD Pager [phone] Raul Hein RN - 12/03/2019 5:55 AM [...] Negative mcL Appearance UA Clear Clear Spec [place] UA 1.026 1.006 - 1.030 Color UA [...] PGY3 Neurology Resident 12/01/2019 Vascular Neurology Pager [phone] Neurology Attending Attestation I evaluated the patient [...] diet as medical provider deems appropriate. Consider COIL WINDER consult for full evaluation and diet recommendations. [...] complications include novel onset, paroxysmal atrial fibrillation [QLZ4OE3IFTZ: 4] & L-sided diplopia with potential hemineglect [...] - c/d/i Gutierres cumulative I/O's since admission: -,220cc Patient Vitals for the past 168 hrs: [...] a non-culprit artery. S/P DESx3 in the duxijlal-ra-oeurta RCA. Aspiration thrombectomy performed, and integrellin bolus [...] complications include novel onset, paroxysmal atrial fibrillation [WVP8LM3FKPE: 5] & L-sided diplopia with potential hemineglect [...] Anticoagulation/Arrhythmia # Novel Onset, Paroxsymal Atrial Fibrillation [CCQ7BC1FFIO: 5] - Hold off anticoagulation - pending [...] Glasgow MD PGY1, Internal Medicine Cardiology S2, #8499 I have seen the patient and reviewed [...] the ICU team. Gretchen Yoon MD Pager [phone] Natalia Claros APRN - 12/02/2019 8:38 AM [...] - We are signing off. Please page [phone] with any questions or concerns. For questions please call [facility] pager [phone] Natalia Claros APRN 12/02/2019 8:38 AM Clinical Documentation Improvement: Active Hospital Problems Diagnosis ??? Acute ST elevation myocardial infarction (STEMI) of inferior wall ??? Intracranial hemorrhage ??? Hyperlipidemia ??? Tobacco abuse ??? Claudication from peripheral vascular disease, left Resolved Hospital Problems No resolved problems to display. Tello Hsu, PARKING METER SERVICER - 12/02/2019 2:06 AM EDT 12/01/192009 Oxygen [...] Latoya Ivey [facility] ([phone]), at 11/30/2019 8:32 PM ASSESSMENT: Patient states he is breathing easier than last night. Still increased WOB PLAN: Wean FiO2 as tolerated. Patient to CT Scan in afternoon. Upon arrival back in [facility] placed on low flow NC at [...] complications include novel onset, paroxysmal atrial fibrillation [YTA4FW5BKJN: 4] & L-sided diplopia with potential hemineglect for which CVA evaluationto be pursued. Active Problems/Subjective: - 11/28: admitted for inferior STEMI, RV failure requiring pressor - got lytics, aspirin and plavix load, heparin gtt, and eptifibatide. 3 MACARIO stents to RCA. [place] cath - low wedge & CVP so [...] - c/d/i R IJ line - c/d/i Nenita cumulative I/O's since admission: +689cc Patient Vitals [...] 0.3 BILIDIR 0.1 Recent Labs 12/01/19 0355 11/30/19 2030 11/30/19 0830 11/30/19 0215 CALCIUM 7.6* 7.9* -- [...] a non-culprit artery. S/P DESx3 in the beegrspo-ii-vtvhna RCA. Aspiration thrombectomy performed, and integrellin bolus [...] complications include novel onset, paroxysmal atrial fibrillation [VFS3KY9HLOD: 4] & L-sided diplopia with potential hemineglect [...] Anticoagulation/Arrhythmia # Novel Onset, Paroxsymal Atrial Fibrillation [LVW5AO4EQTI: 4] - Obtain: TTE - Pending CVA [...] MD, PGY1 PGY3, Internal Medicine Cardiology S2, #7502 I have seen the patient and reviewed [...] down the line. Gretchen Yoon MD Pager [phone] Gretchen Yoon MD Pager [phone] Natalia Claros APRN - 12/01/2019 1:33 AM [...] No facial asymmetry Tongue midline MOTOR: RUE:5 LUE:5 RLE: 11/03 LLE: 11/03 No pronator drift [...] per primary team For questions please call [facility] pager [phone] Natalia Claros APRN 12/01/2019 7:42 AM Clinical Documentation Improvement: Active Hospital Problems Diagnosis ??? Acute ST elevation myocardial infarction (STEMI) of inferior wall ??? Intracranial hemorrhage ??? Hyperlipidemia ??? Tobacco abuse ??? Claudication from peripheral vascular disease, left Resolved Hospital Problems No resolved problems to display. Tello Hsu, PARKING METER SERVICER - 11/30/2019 8:44 PM EDT Respiratory Therapy [...] Latoya Ivey [facility] ([phone]), at 11/30/2019 8:32 PM ASSESSMENT: Patient had [...] EDT Narrative:Visited in response to request for Ophthalmic Assistant services. Pt was awake, alert, oriented and in bed. Assessment:Patient coping positively with stresses of illness/hospitalization at this time. Pt says that he is hoping to get better and pt is living with and has children and grandchildren. Pt haspurpose of life and has reason to get getter and to be with family. Outcome: Provided emotional and spiritual support and encouraging presence. Ophthalmic Assistant services accepted.Conversation to build trusting relationship.Provided pastoral [...] complications include novel onset, paroxysmal atrial fibrillation [TFD2XD3DBQO: 4] & L-sided diplopia with potential hemineglect for which CVA evaluationto be pursued. Active Problems/Subjective: - Overnight, CVP < 12 for which a total of 1 L IVF provided - Today AM, patient complains of subjectively reported, left-sided hemineglect with floaters and diplopia [see: exam]. - Otherwise, c/o neck pain 2/2 R IJ [place] & L radial A line. Otherwise, denies [...] - PA cath PIVs Labs Recent Labs 11/30/19 02111/29/19 1432 WBC 11.2* 14.5* HGB 11.4* 13.1* HCT 35.2* 40.8 PLATELET 122* 184 Recent Labs 11/30/19 0215 11/29/19 1432 NA 135 135 K 3.9 4.5 CL 108* 105 CO2 16* 15* BUN 13 16 CREATININE 0.90 0.94 Recent Labs 11/29/19 1432 AST 257* ALT 50 ALKPHOS 84 BILITOT 0.3 BILIDIR 0.1 Recent Labs 11/30/19 0215 11/29/19 1432 CALCIUM 7.5* 8.0* MAGNESIUM -- 0.76 Recent Labs 11/29/19 1432 INR 1.2 PT 13.5* PTT 114* Recent Labs 11/30/19 0830 11/30/19 0215 11/29/19 1835 CK 1,645* 1,969* 2,780* TROPONINT 8.04* 11.73* 17.60* No results for input(s): POCGLU in the last 168 hours. Imaging/Studies: 1. Cardiac Catheterization, 11/29/19: Discrete 90% stenosis in the prox-to-mid RCA. Severe diffuse disease in the distal vessel. Discrete LCX stenosis in a non-culprit artery. S/P DESx3 in the vakaflsk-gs-mbhaew RCA. Aspiration thrombectomy performed, and integrellin bolus [...] complications include novel onset, paroxysmal atrial fibrillation [[id number]: 4] & L-sided diplopia with potential hemineglect [...] Anticoagulation/Arrhythmia # Novel Onset, Paroxsymal Atrial Fibrillation [[id number]: 4] - Obtain: TTE to confirm rhythm [...] MD, PGY3 PGY3, Internal Medicine Cardiology S2, #[id number] I have seen the patient and reviewed [...] down the line. Gretchen Yoon MD Pager [phone] Paola Capps RN - 11/30/2019 6:57 AM EDT PT still requiring 4 of levo, several attempts to titrate down (maps in 70;s) But maps would drop toless than 65. Pt very restless in bed Raising and lowering head denies pain . Integrillin stopped [id number] when bottle complete , urine tea colored [...] PCP: France Lam MD PCP phone #: [phone] Stoker Installation Mechanic: None ID/Chief Complaint: Chest pain History of [...] up to 10mcg/min. He was transferred to [facility] after the cath procedure. Bedside RHC [...] ??? Penicillins Pt doesn't remember reaction ??? U[place]uk-Nyc-Lxa Reductase Inhibitors Stiff neck, upset stomach, back pain Family History: Mother: Father: [place] 2 Uncles with MIs Social History: Tobacco: Current active smoker 1 ppd. 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 Vitals: Last value Range [...] in the last 7068 hours. Invalid input(s): [id number] Heme: No results for input(s): LDH, HAPTOGLOBIN, [...] Admit to Cardiology, S2 Team Pager # [phone] #Inferior STEMI, LEYLA 149 - Resolving EKG [...] with MACARIO x3. Gretchen Yoon MD Pager [phone] documented in this encounter Procedure Notes Juventino [...] the planned procedure. Hand Hygiene: The senior technical support engineer did perform hand hygiene prior to arterial [...] a suspected line-associated infection. Location of Procedure: [facility] Risks and Benefits: The risks and [...] the planned procedure. Hand Hygiene: The senior technical support engineer did perform hand hygiene prior to line [...] side:right An Introducer (PSI Kit) was used. [place]. Insertion Side: right. Insertion Site: internal jugular. Catheter Details: Number of Lumens: 1 Catheter Type: heparin-coated The line was placed over a guidewire. Confirmation of Venous Placement: Venous placement was confirmed by transducing the pressure. Introducer Insertion Attempts: 1 Comments: Floating the [place] Catheter Attempts: 1 Comments: Sterile Dressing: Biopatch [...] better pt back in SR. Please page [phone] for any more cares or concerns Plan [...] Ongoing assessment Goal: Fall Prevention-Safe Patient Handling 12/06/198 12/07/19 0350 12/07/19 0400 Beyer Fall Risk History [...] complications include novel onset, paroxysmal atrial fibrillation [[id number]: 5]& L-sided diplopia with potential hemineglect for [...] Total Evaluation Minutes, Occupational Therapy: 10 Pager: [phone] FRANCINE Nuñez Occupational Therapy Rehabilitation Department Plan [...] complications include novel onset, paroxysmal atrial fibrillation [[id number]: 5] & L-sided diplopia with potential hemineglect [...] hand rails). Baseline Mobility: Independent. Drives. Shares fisher eel with his , however her mobility is [...] plan as stated. Time IN / OUT: 0251-8841 Total Evaluation Minutes, Physical Therapy: 15(gtx1) Barbara Baldwin, PT Pager: [phone] Physical Therapy Inpatient Rehabilitation Department Plan of [...] Handling Outcome: Ongoing (Interventions Implemented as Appropriate) 12/02/19200312/03/1979912/03/19 1147 Beyer Fall Risk History of Falling [...] he receives all he needs through the [facility]. Consult refused. Romain Tran, MSN, RN-, [facility] Tobacco Assistant Manager [facility] Pager #[phone] Plan of Care - Romain Oglesby OT [...] complications include novel onset, paroxysmal atrial fibrillation [[id number]: 5] & L-sided diplopia with potential hemineglect [...] and measurable assessment of functional outcome. Pager: [phone] ROMAIN OGLESBY OT 12/03/2019 Occupational Therapy Rehabilitation [...] complications include novel onset, paroxysmal atrial fibrillation [[id number]: 5] & L-sided diplopia with potential hemineglect [...] hand rails). Baseline Mobility: Independent. Drives. Shares fisher eel with his , however her mobility is [...] in this evaluation. Time IN / OUT: 6524-7672 Total Evaluation Minutes, Physical Therapy: 25(eval, gtx1) Barbara Baldwin, PT Pager: [phone] Physical Therapy Inpatient Rehabilitation Department Consult Note [...] Provided: Patient was seen today in the [facility] sitting up in bed, oxygen on via [...] Please contact JOHANNA NOBLES RN on pager [phone] or the wound care team at [phone] or pager [phone] skin and wound care concerns or questions. [...] Salinas would be surrogate decision maker per [place] surrogate decision making law. Any patient receiving carspousee at [facility] must abide by [place] law. The hierarchy for surrogate decisionmaking is: [...] (i) The agent with financial power of collections attorney or a conservator appointed in accordance [...] Insurance: N/A Prescription Coverage: Yes Preferred Pharmacy: [place], [place] Other: No Primary Care Provider: France Lam MD [phone] Patient/Caregiver Goals of Treatment: Return home Potential Needs for Transition of Care: Rehab/SNF: Based on discussions with the multi-disciplinary healthcare team, the patient would benefit from SNF level of care at discharge. ?? I have met with the patient to discuss discharge planning needs. I have provided the [facility], Officeof Care Management letter from the Salvage Clerk pertaining to rehab referrals. I have also [...] patient have requested referrals to: ?? 1. [facility] [address] [place] [address] ?? [address] , [place] [address] Note routed to Stock Crane Operator who will communicate referrals to facilities [...] referrals are placed. Patient requests referral to [facility]. PHONE: [phone] FAX: [phone] Referral routed to the Stock Crane Operator for matching with agency/vendor and to [...] Insured w/ Medicare. Gets medications filled at [facility] in [place], [place]. Son to transport at discharge Plan: Discharge dispo depending on patient's physical recovery; SNF vs home w/ VNA. A member of the Care Management team will continue to monitor progress, follow for continuity of care and assist with transition of care planning. Derian Pascual RN Pager: [phone] Plan of Care - Estefani Encarnacion RN [...] ??? Penicillins Pt doesn't remember reaction ??? Ysuqtcr-Uce-Iqb Reductase Inhibitors Stiff neck, upset stomach, back [...] noncontrast head CT and CT of the [place] at 1600 hrs. We will [...] stroke per neurology recommendations. Consult Note - Odermann, Barbara I - 11/30/2019 11:18 AM EDT Neurology [...] ??? Penicillins Pt doesn't remember reaction ??? Vshapmc-Kud-Yhg Reductase Inhibitors Stiff neck, upset stomach, back [...] file Gets together: Not on file Attends presybeterian service: Not on file Active member of [...] L Elbow flexion 5/5 R, 5/5 L Business Unit Manager LE: 5/5 R, 5/5 L Hip [...] PGY3 Neurology Resident 11/30/2019 Vascular Neurology Pager [phone] Standard [facility] Swallow [...] diet as medical provider deems appropriate. Consider COIL WINDER consult for full evaluation and diet recommendations. [...] Afib admitted s/p thrombolysis and Cath-St[facility] to [facility] who developed R sided visual symptoms. 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 Severe diffuse disease in the distal vessel. Discrete LCX stenosis in a non-culprit artery. S/P DESx3 in the skrawpuj-rj-uikmtg RCA. Aspiration thrombectomy performed, and integrellin bolus x2+ infusion. Nicardipine given during case due to intermittent sluggish flow. Complications: None documented in this encounter Plan of Treatment Upcoming Encounters Date Type Specialty Care Team Description 06/30/2022 Office Visit Endocrinology Alan Terrell MD [facility] ENDOCRINOLOGY [place], [place] [address] (Wo rk) Scheduled Referrals Name [...] are i n the results section. CT [place] [facility] [place] W STAT 11/30/2019 4:36 Res [...] athologist Signature Potassium 3.9 3.5 - 5.0 [facility] DOV mmol/L [facility] LABORATORY Comment: Please note: ??Patients with WBC [...] Organization Address City/State/[place] [address] (ABNORMAL) Hemogram (12/08/2019 12:39 PM EDT) Analysis Performed At Patho logist Time Signature WBC 9.9 (H) 4.0 - 9.5 [place] DOV x10(3)/[facility] LABORATORY RBC 4.51 (L) 4.58 - [place] DOV 5.54 [facility] x10(6)/[facility] LABORATORY Hemoglobin 13.0 (L) 13.7 - [place] D[facility] 16.5 gm/dL [facility] LABORATORY Hematocrit 40.5 40.5 - GadgetATMDOV 48.5 % [facility] LABORATORY MCV 89.8 82.9 - [place] D[place] 93.1 [facility] LABORATORY MCH 28.8 27.5 - [place] D[facility] 32.1 pg [facility] LABORATORY MCHC 32.1 32.0 - [place] D[facility] 35.7 gm/dL [facility] LABORATORY Platelets 214 145 - 357 [place] DOV x10(3)/[facility] LABORATORY RDWSD 49.2 (H) 36.0 - [place] DOV 45.0 [facility] LABORATORY RDWCV 15.1 (H) 11.4 - [facility]OV 13.8 % [facility] LABORATORY MPV 12.1 7.6 - 12.9 [place] DOV [facility] LABORATORY nRBC % Auto 0.0 % [facility] LABORATORY nRBC Abs Auto 0.000 0.000 - [place] DOV 0.000 [facility] x10(3)/[facility] LABORATORY Specimen Anatomical Collection Method Collection Time Receive d Time (Source) Location / / Volume Laterality Blood specimen 12/08/2019 12:39 0 (specimen) PM EDT 12:47 PM EDT Resulting Agency Comment Spec In Lab Gretchen Yoon MD HEMATOLOGY ORDERABLES Performing Organization Address City/State/ZIP Code Phon e Number [address] Hepatic Function Panel (12/08/2019 6:28 AM EDT) athologist Signature Total Protein 6.6 6.1 - 8.0 [facility] gm/dL [facility] LAB[facility]ORY Albumin 3.2 3.2 - 5.2 [facility]dL [facility] LAB[facility]ORY AST 18 0 - 39 [facility] unit/L [facility] ALT 13 0 - 55 [facility] unit/L [facility] Alk Phos 64 40 - 130 [facility] unit/L [facility] LAB[facility]ORY Total 0.4 0.2 - 1.3 [facility] Bilirubin mg/dL [facility] LAB[facility]ORY Bili, Direct 0.1 0.0 - 0.3 [facility] mg/dL [facility] LABOR[facility]ORY Specimen Anatomical Collection Method Collection Time Receive d Time (Source) Location / / Volume Laterality Blood specimen Venous Draw / 12/08/2019 6:28 AM 2019 6:36 (specimen) Unknown EDT AM EDT Resulting Agency Comment Spec In Lab Riki Stevens MD CHEMISTRY ORDERABLES Performing Organization Address City/State/ZIP Code Phon e Number [address] (ABNORMAL) TSH (12/08/2019 6:28 AM EDT) P athologist Signature TSH 5.27 (H) 0.27 - 4.20 [facility] DOV mcIU/mL [facility] LABOR[facility]ORY Specimen Anatomical Collection Method Collection Time Receive d Time (Source) Location / / Volume Laterality Blood specimen Venous Draw / 12/08/2019 6:28 AM 2019 6:36 (specimen) Unknown EDT AM EDT Resulting Agency Comment Spec In Lab Darrell Glasgow MD CHEMISTRY ORDERABLES Performing Organization Address City/State/ZIP Code Phon e Number [address] Potassium (12/08/2019 6:28 AM EDT) P athologist Signature Potassium 4.2 3.5 - 5.0 [facility] mmol/L [facility]ORY Comment: Please note: ??Patients with WBC [...] Lagos MD CHEMISTRY ORDERABLES Performing Organization Address City/[facility]/[place] [address] (ABNORMAL) Differential, Automated (12/08/2019 12:43 AM EDT) Patholo gist Method Time Signature Neutrophils % 60.7 % [facility] LABORATORY Neutr Abs (ANC) 6.81 (H) 1.70 - [facility] 6.10 [facility] x10(3)/[facility] LABORATORY Lymphocytes % 23.4 % [facility] LABORATORY Lymphocytes Abs 2.6 0.9 - 3.2 [facility] x10(3)/[facility] LABORATORY Monocytes % 10.0 % [facility] LABORATORY Monocyte Abs 1.1 (H) 0.3 - 0.9 [facility] x10(3)/[facility] LABORATORY Eosinophils % 3.7 % [facility] LABORATORY Eosinophils Abs 0.4 0.0 - 0.4 [facility] x10(3)/[facility] LABORATORY Basophils % 1.2 % [facility] LABORATORY Basophils Abs 0.1 0.0 - 0.1 [facility] DOV x10(3)/[facility] LABORATORY Immature [...] Abs 0.11 (H) 0.00 - 0.04 x10(3)/[facility] LABORATORY Specimen Anatomical Collection Method Collection Time Receive d Time (Source) Location / / Volume Laterality Blood specimen 12/08/2019 12:43 0 (specimen) AM EDT 12:52 AM EDT Resulting Agency Comment Spec In Lab Riki Stevens MD HEMATOLOGY ORDERABLES Performing Organization Address City/State/[place] [address] (ABNORMAL) Hemogram (12/08/2019 12:43 AM EDT) Analysis Performed At Patho logist Time Signature WBC 11.2 (H) 4.0 - 9.5 [facility] x10(3)/[facility] LABORATORY RBC 4.46 (L) 4.58 - [facility] DOV 5.54 [facility] x10(6)/[facility] LABORATORY Hemoglobin 13.1 (L) 13.7 - [facility] 16.5 gm/dL [facility] LABORATORY Hematocrit 40.5 40.5 - [place] DOV 48.5 % [facility] LABORATORY MCV 90.8 82.9 - [facility] 93.1 [facility] LABORATORY MCH 29.4 27.5 - [place] DOV 32.1 pg [facility] LABORATORY MCHC 32.3 32.0 - [facility] DOV 35.7 gm/dL [facility] LABORATORY Platelets 215 145 - 357 [facility] x10(3)/[facility] RDWSD 49.8 (H) 36.0 - [place] DOV 45.0 [facility] LABORATORY RDWCV 15.2 (H) 11.4 - [place] MONAE 13.8 % [facility] LABORATORY MPV 12.3 7.6 - 12.9 [place] MONAE fL [facility] LABORATORY nRBC % Auto 0.0 % [facility] LABORATORY nRBC Abs Auto 0.000 0.000 - [place] MONAE 0.000 [facility] x10(3)/[facility] LABORATORY Specimen Anatomical Collection Method Collection Time Receive d Time (Source) Location / / Volume Laterality Blood specimen 12/08/2019 12:43 0 (specimen) AM EDT 12:52 AM EDT Resulting Agency Comment Spec In Lab Riki Stevens MD HEMATOLOGY ORDERABLES Performing Organization Address City/State/ZIP Code Phon e Number [address] Magnesium (12/08/2019 12:43 AM EDT) P athologist Signature Magnesium 1.01 0.69 - 1.07 [facility] mmol/L [facility] LABORATORY Specimen Anatomical Collection Method Collection Time Receive d Time (Source) Location / / Volume Laterality Blood specimen 12/08/2019 12:43 0 (specimen) AM EDT 12:52 AM EDT Resulting Agency Comment Spec In Lab Gretchen Yoon MD CHEMISTRY ORDERABLES Performing Organization Address City/State/ZIP Code Phon e Number [address] (ABNORMAL) BMP w/fasting Glucose (12/08/2019 12:43 AM EDT) P athologist Signature Glucose 106 (H) 65 - 99 [facility] Fasting mg/dL [facility] LAB[facility]ATORY Comment: ?Fasting* Glucose Interpretive C riteria [...] of Diabetes Mellitus, Position Statement from the [employer]. ??Diabete s Care, Volume 33, Supplement 1, Jul 2009 BUN 14 10 - 20 mg/dL [facility] LABORATORY Creatinine 1.16 0.80 - 1.50 mg/dL [facility] LABORATORY Sodium 134 (L) 135 - [...] of body mass or the acutely ill. http://My [employer] Database/[facility] eGFR 72 >=60 mL/min/1.73 m?? [facility] LABORATORY Comment: The eGFR was calculated using the CKD-EP I equation. As with all creatinine based estimates of kidney function, eGFR values calculated with the CKD-EPI equation are not accurate in patients wi th acute kidney failure, extremes of body mass or the acutely ill. http://[employer]/[facility] Specimen Anatomical Collection Method Collection Time Receive d Time (Source) Location / / Volume Laterality Blood specimen 12/08/2019 12:43 0 (specimen) AM EDT 12:52 AM EDT Resulting Agency Comment Spec In Lab Gretchen Yoon MD CHEMISTRY ORDERABLES Performing Organization Address [facility] [place] [address] Heparin (unfractionated) Level (12/08/2019 12:43 AM EDT) athologist Signature Heparin UFH 0.60 IU/mL [facility] LABORATORY Comment: Guidelines for therapeutic unfractionate [...] Organization Address [facility]/[place] [address] [facility] LABORATORY Drive Potassium (12/07/2019 8:39 PM EDT) athologist Signature Potassium 4.1 3.5 - 5.0 [facility] mmol/L [facility] LABORATORY Comment: Please note: ??Patients with WBC [...] Lagos MD CHEMISTRY ORDERABLES Performing Organization Address City/[facility]/[place] [address] Potassium (12/07/2019 4:02 PM EDT) P athologist Signature Potassium 4.0 3.5 - 5.0 [facility] mmol/L [facility] LABORATORY Comment: Please note: ??Patients with WBC [...] Yoon MD CHEMISTRY ORDERABLES Performing Organization Address City/[facility] [place] [address] (ABNORMAL) Hemogram (12/07/2019 4:02 PM EDT) Analysis Performed At Patho logist Time Signature WBC 17.4 (H) 4.0 - 9.5 [place] [facility] x10(3)/[facility] LABORATORY RBC 4.58 4.58 - [place] DOV 5.54 [facility] x10(6)/[facility] LABORATORY Hemoglobin 13.5 (L) 13.7 - [place] DOV 16.5 gm/dL [facility] LABORATORY Hematocrit 40.8 40.5 - [place] DOV 48.5 % [facility] LABORATORY MCV 89.1 82.9 - [place] DOV 93.1 fL [facility] LABORATORY MCH 29.5 27.5 - [place] MONAE 32.1 pg [facility] LABORATORY MCHC 33.1 32.0 - [place] MONAE 35.7 gm/dL [facility] LABORATORY Platelets 238 145 - 357 [facility] x10(3)/[facility] LABORATORY RDWSD 48.8 (H) 36.0 - [place] MONAE 45.0 [facility] LABORATORY RDWCV 15.0 (H) 11.4 - [facility] DOV 13.8 % [facility] LABORATORY MPV 12.2 7.6 - 12.9 [place] MONAE [facility] LABORATORY nRBC % Auto 0.0 % [facility] LABORATORY nRBC Abs Auto 0.000 0.000 - [place] MONAE 0.000 [facility] x10(3)/[facility] LABORATORY Specimen Anatomical Collection Method Collection Time Receive d Time (Source) Location / / Volume Laterality Blood specimen 12/07/2019 4:02 PM 020 4:08 (specimen) EDT PM EDT Resulting Agency Comment Spec In Lab Gretchne Yoon MD HEMATOLOGY ORDERABLES Performing Organization Address City/State/[place] [address] EKG 12 Lead (12/07/2019 [...] (Bezet) Calculated P -12 degrees [facility] [place] Calculated R 10 degrees [facility] [place] Calculated T -138 degrees [facility] [place] INTERPRETATION Supraventricular tachycardia MUSE SYSTEM Low voltage [...] athologist Signature Potassium 4.2 3.5 - 5.0 [facility] mmol/L [facility] LAB[facility]ORY Comment: Please note: ??Patients with WBC [...] EDT Resulting Agency Comment Spec In Lab Prais Lagos MD CHEMISTRY ORDERABLES Performing Organization Address City/State/[place] [address] Heparin (unfractionated) Level (12/07/2019 11:43 AM EDT) athologist Signature Heparin UFH 0.59 IU/mL [facility] LABORATORY Comment: Guidelines for therapeutic unfractionate [...] / Volume Laterality Blood specimen 12/07/2019 11:43 06/07/202 0 (specimen) AM EDT 12:05 PM EDT Resulting Agency Comment Spec In Lab Paris Lagos MD HEMATOLOGY ORDERABLES Performing Organization Address City/[facility]/[place] [address] Heparin (unfractionated) Level (12/07/2019 5:20 AM EDT) athologist Signature Heparin UFH 0.53 IU/mL [facility] LABORATORY Comment: Guidelines for therapeutic unfractionate [...] Lagos MD HEMATOLOGY ORDERABLES Performing Organization Address City/[facility]/[place] [address] [facility] LABORATORY Drive (ABNORMAL) Differential, Automated (12/07/2019 5:20 AM EDT) Patholo gist Method Time Signature Neutrophils % 62.4 % [facility] LABORATORY Neutr Abs (ANC) 5.46 1.70 - [facility] 6.10 [facility] x10(3)/[facility] LABORATORY Lymphocytes % 20.3 % [facility] LABORATORY Lymphocytes Abs 1.8 0.9 - 3.2 [facility] x10(3)/[facility] LABORATORY Monocytes % 11.0 % [facility] LABORATORY Monocyte Abs 1.0 (H) 0.3 - 0.9 [facility] x10(3)/[facility] LABORATORY Eosinophils % 4.5 % [facility] LABORATORY Eosinophils Abs 0.4 0.0 - 0.4 [facility] x10(3)/[facility] LABORATORY Basophils % 0.9 % [facility] LABORATORY Basophils Abs 0.1 0.0 - 0.1 [facility] x10(3)/[facility] LABORATORY Immature Gran % 0.90 % [facility] [...] Abs 0.08 (H) 0.00 - 0.04 x10(3)/[facility] LABORATORY Specimen Anatomical Collection Method Collection Time Receive d Time (Source) Location / / Volume Laterality Blood specimen 12/07/2019 5:20 AM 020 5:37 (specimen) EDT AM EDT Resulting Agency Comment Spec In Lab Riki Stevens MD HEMATOLOGY ORDERABLES Performing Organization Address City/State/[place] [address] (ABNORMAL) Hemogram (12/07/2019 5:20 AM EDT) Analysis Performed At Patho logist Time Signature WBC 8.7 4.0 - 9.5 [facility] x10(3)/[facility] LABORATORY RBC 4.20 (L) 4.58 - [facility] 5.54 [facility] x10(6)/[facility] LABORATORY Hemoglobin 12.3 (L) 13.7 - [facility] 16.5 gm/dL [facility] LABORATORY Hematocrit 37.4 (L) 40.5 - MELINA MONAE 48.5 % [facility] LABORATORY MCV 89.0 82.9 - MELINA MONAE 93.1 [facility] LABORATORY MCH 29.3 27.5 - MELINA VILLANUEVACK 32.1 pg [facility] LABORATORY MCHC 32.9 32.0 - MELINA MONAE 35.7 gm/dL [facility] LABORATORY Platelets 181 145 - 357 MELINA MIDNIGHT x10(3)/[facility] LABORATORY RDWSD 47.7 (H) 36.0 - MELINA MONAE 45.0 [facility] LABORATORY RDWCV 14.8 (H) 11.4 - [facility] DOV 13.8 % [facility] LABORATORY MPV 12.3 7.6 - 12.9 [facility] LABORATORY nRBC % Auto 0.0 % [facility] LABORATORY nRBC Abs Auto 0.000 0.000 - MELINA MARSHDOV 0.000 [facility] x10(3)/[facility] LABORATORY Specimen Anatomical Collection Method Collection Time Receive d Time (Source) Location / / Volume Laterality Blood specimen 12/07/2019 5:20 AM 020 5:37 (specimen) EDT AM EDT Resulting Agency Comment Spec In Lab Riki Stevens MD HEMATOLOGY ORDERABLES Performing Organization Address City/[facility]/[place] [address] Magnesium (12/07/2019 5:20 AM EDT) athologist Signature Magnesium 0.89 0.69 - 1.07 [facility] mmol/L [facility] LABORATORY Specimen Anatomical Collection Method Collection Time Receive d Time (Source) Location / / Volume Laterality Blood specimen 12/07/2019 5:20 AM 020 5:37 (specimen) EDT AM EDT Resulting Agency Comment Spec In Lab Gretchen Yoon MD CHEMISTRY ORDERABLES Performing Organization Address City/[facility] [place] [address] (ABNORMAL) BMP w/fasting Glucose (12/07/2019 5:20 AM EDT) athologist Signature Glucose 100 (H) 65 - 99 [facility] Fasting mg/dL [facility] LABORATORY Comment: ?Fasting* Glucose Interpretive C riteria [...] of Diabetes Mellitus, Position Statement from the [employer]. ??Diabete s Care, Volume 33, Supplement 1, Jul 2009 BUN 14 10 - 20 mg/dL [facility] LABORATORY Creatinine 0.83 0.80 - 1.50 mg/dL [facility] LABORATORY Sodium 135 135 - 145 [...] of body mass or the acutely ill. [email or web address]/[facility] CITYnkf eGFR 101 >=60 mL/min/1.73 m?? [facility] LABORATORY Comment: The eGFR was calculated using the CKD-EP I equation. As with all creatinine based estimates of kidney function, eGFR values calculated with the CKD-EPI equation are not accurate in patients wi th acute kidney failure, extremes of body mass or the acutely ill. http://My Fashion Database/[facility] [place]nkf Specimen Anatomical Collection Method Collection Time Receive d Time (Source) Location / / Volume Laterality Blood specimen 12/07/2019 5:20 AM 020 5:37 (specimen) EDT AM EDT Resulting Agency Comment Spec In Lab Gretchen Yoon MD CHEMISTRY ORDERABLES Performing Organization Address City/State/[place] [address] Heparin (unfractionated) Level (12/06/2019 10:14 PM EDT) athologist Signature Heparin UFH 0.29 IU/mL [facility] LABORATORY Comment: Guidelines for therapeutic unfractionate [...] / Volume Laterality Blood specimen 12/06/2019 10:14 06/06/202 0 (specimen) PM EDT 10:27 PM EDT Resulting Agency Comment Spec In Lab Paris Lagos MD HEMATOLOGY ORDERABLES Performing Organization Address City/State/[place] [address] Head wo Contrast [...] For questions regarding this report, please contact [facility]. ? Electronically signed by: Merari Collins [facility] ([phone]), at 12/06/2019 10:06 PM Narrative 12/06/2019 10:06 [...] Merari Collins [facility] ([phone]), at 12/06/2019 10:06 PM Paris Lagos MD IMG CT ORDERABLES (ABNORMAL) Hemogram (12/06/2019 4:20 PM EDT) Analysis Performed At Patho logist Time Signature WBC 10.4 (H) 4.0 - 9.5 [facility] DOV x10(3)/[facility] LABORATORY RBC 4.32 (L) 4.58 - MELINA DOV 5.54 [facility] x10(6)/[facility] LABORATORY Hemoglobin 12.5 (L) 13.7 - [facility] DOV 16.5 gm/dL [facility] LABORATORY Hematocrit 38.4 (L) 40.5 - [facility] DOV 48.5 % [facility] LABORATORY MCV 88.9 82.9 - [facility] DOV 93.1 [facility] LABORATORY MCH 28.9 27.5 - M[place]INA DOV 32.1 pg [facility] LABORATORY MCHC 32.6 32.0 - [place] DOV 35.7 gm/dL [facility] LABORATORY Platelets 194 145 - 357 [facility] x10(3)/[facility] LABORATORY RDWSD 46.9 (H) 36.0 - [facility] DOV 45.0 [facility] LABORATORY RDWCV 14.6 (H) 11.4 - [facility] DOV 13.8 % [facility] LABORATORY MPV 11.9 7.6 - 12.9 [facility] nRBC % Auto 0.0 % [facility] LABORATORY nRBC Abs Auto 0.000 0.000 - [place] DOV 0.000 [facility] x10(3)/[facility] LABORATORY Specimen Anatomical Collection Method Collection Time Receive d Time (Source) Location / / Volume Laterality Blood specimen 12/06/2019 4:20 PM 020 4:31 (specimen) EDT PM EDT Resulting Agency Comment Spec In Lab Gretchen Yoon MD HEMATOLOGY ORDERABLES Performing Organization Address City/State/ZIP Code Phon e Number [place] [id number] [address]OS[address] LAB[address]ORY [address] Heparin (unfractionated) Level (12/06/2019 4:20 PM EDT) athologist Signature Heparin UFH 0.30 IU/mL [facility] LABORATORY Comment: Guidelines for therapeutic unfractionate [...] Organization Address [facility] [place] [address] [facility] LABORATORY Drive Heparin (unfractionated) Level (12/06/2019 10:02 AM EDT) athologist Signature Heparin UFH <0.04 IU/mL [facility] LABORATORY Comment: Guidelines for therapeutic unfractionate [...] Lagos MD HEMATOLOGY ORDERABLES Performing Organization Address City/[facility]/[place] [address] Magnesium (12/06/2019 3:36 AM EDT) P athologist Signature Magnesium 0.86 0.69 - 1.07 [facility] mmol/L [facility] LABORATORY Specimen Anatomical Collection Method Collection Time Receive d Time (Source) Location / / Volume Laterality Blood specimen 12/06/2019 3:36 AM 020 3:45 (specimen) EDT AM EDT Resulting Agency Comment Spec In Lab Gretchen Yoon MD CHEMISTRY ORDERABLES Performing Organization Address City/State/[place] [address] (ABNORMAL) BMP w/fasting Glucose (12/06/2019 3:36 AM EDT) P athologist Signature Glucose 103 (H) 65 - 99 [facility] Fasting mg/dL [facility] LABORATORY Comment: ?Fasting* Glucose Interpretive C riteria [...] of Diabetes Mellitus, Position Statement from the [employer]. ??Diabete s Care, Volume 33, Supplement 1, Jul 2009 BUN 20 10 - 20 mg/dL [facility] LABORATORY Creatinine 0.88 0.80 - 1.50 mg/dL [facility] LABORATORY Sodium 136 135 - 145 [...] of body mass or the acutely ill. http://My Fashion Database/DHMCnkf eGFR 99 >=60 mL/min/1.73 m?? [facility] LABORATORY Comment: The eGFR was calculated using the CKD-EP I equation. As with all creatinine based estimates of kidney function, eGFR values calculated with the CKD-EPI equation are not accurate in patients wi th acute kidney failure, extremes of body mass or the acutely ill. http://My Fashion Database/DHMCnkf Specimen Anatomical Collection Method Collection Time Receive d Time (Source) Location / / Volume Laterality Blood specimen 12/06/2019 3:36 AM 020 3:45 (specimen) EDT AM EDT Resulting Agency Comment Spec In Lab Gretchen Yoon MD CHEMISTRY ORDERABLES Performing Organization Address City/State/[place] [address] (ABNORMAL) Hemogram (12/06/2019 3:36 AM EDT) Analysis Performed At Patho logist Time Signature WBC 9.2 4.0 - 9.5 [facility] x10(3)/[facility] LABORATORY RBC 3.99 (L) 4.58 - [facility] DOV 5.54 [facility] x10(6)/[facility] LABORATORY Hemoglobin 11.9 (L) 13.7 - [facility] DOV 16.5 gm/dL [facility] LABORATORY Hematocrit 35.5 (L) 40.5 - [facility] 48.5 % [facility] LABORATORY MCV 89.0 82.9 - [facility] 93.1 [facility] LABORATORY MCH 29.8 27.5 - MELINA DOV 32.1 pg [facility] LABORATORY MCHC 33.5 32.0 - [facility] 35.7 gm/dL [facility] LABORATORY Platelets 164 145 - 357 [facility] x10(3)/[facility] LABORATORY RDWSD 47.6 (H) 36.0 - [place] DOV 45.0 [facility] LABORATORY RDWCV 14.7 (H) 11.4 - [place] DOV 13.8 % [facility] LABORATORY MPV 11.9 7.6 - 12.9 [facility] LABORATORY nRBC % Auto 0.0 % [facility] LABORATORY nRBC Abs Auto 0.000 0.000 - [place] DOV 0.000 [facility] x10(3)/[facility] LABORATORY Specimen Anatomical Collection Method Collection Time Receive d Time (Source) Location / / Volume Laterality Blood specimen 12/06/2019 3:36 AM 020 3:45 (specimen) EDT AM EDT Resulting Agency Comment Spec In Lab Gretchen Yoon MD HEMATOLOGY ORDERABLES Performing Organization Address City/State/[place] [address] (ABNORMAL) Differential, Automated (12/05/2019 10:52 PM EDT) [facility] Method Time Signature Neutrophils % 61.9 % [facility] LABORATORY Neutr Abs (ANC) 6.02 1.70 - [facility] 6.10 [facility] x10(3)/[facility] LABORATORY Lymphocytes % 22.4 % [facility] LABORATORY Lymphocytes Abs 2.2 0.9 - 3.2 [facility] x10(3)/[facility] LABORATORY Monocytes % 10.4 % [facility] LABORATORY Monocyte Abs 1.0 (H) 0.3 - 0.9 [facility] x10(3)/[facility] LABORATORY Eosinophils % 4.1 % [facility] LABORATORY Eosinophils Abs 0.4 0.0 - 0.4 [facility] x10(3)/[facility] LABORATORY Basophils % 0.7 % [facility] LABORATORY Basophils Abs 0.1 0.0 - 0.1 [facility] x10(3)/[facility] LABORATORY Immature Gran % 0.50 % MAY[facility] [...] Abs 0.05 (H) 0.00 - 0.04 x10(3)/[facility] LABORATORY Specimen Anatomical Collection Method Collection Time Receive d Time (Source) Location / / Volume Laterality Blood specimen 12/05/2019 10:52 0 (specimen) PM EDT 10:59 PM EDT Resulting Agency Comment Spec In Lab Mandi Barrera MD HEMATOLOGY ORDERABLES Performing Organization Address City/State/[place] [address] (ABNORMAL) Hemogram (12/05/2019 10:52 PM EDT) Analysis Performed At Patho logist Time Signature WBC 9.7 (H) 4.0 - 9.5 [facility] DOV x10(3)/[facility] LABORATORY RBC 4.07 (L) 4.58 - [place] DOV 5.54 [facility] x10(6)/[facility] LABORATORY Hemoglobin 11.9 (L) 13.7 - [facility] DOV 16.5 gm/dL [facility] LABORATORY Hematocrit 36.4 (L) 40.5 - [facility] 48.5 % [facility] LABORATORY MCV 89.4 82.9 - [facility] 93.1 [facility] LABORATORY MCH 29.2 27.5 - [facility] DOV 32.1 pg [facility] LABORATORY MCHC 32.7 32.0 - [facility] DOV 35.7 gm/dL [facility] LABORATORY Platelets 167 145 - 357 [facility] x10(3)/[facility] LABORATORY RDWSD 47.7 (H) 36.0 - [facility] DOV 45.0 [facility] LABORATORY RDWCV 14.6 (H) 11.4 - [facility] DOV 13.8 % [facility] LABORATORY MPV 12.1 7.6 - 12.9 [facility] DOV [facility] LABORATORY nRBC % Auto 0.0 % [facility] LABORATORY nRBC Abs Auto 0.000 0.000 - [facility] DOV 0.000 [facility] x10(3)/[facility] LABORATORY Specimen Anatomical Collection Method Collection Time Receive d Time (Source) Location / / Volume Laterality Blood specimen 12/05/2019 10:52 0 (specimen) PM EDT 10:59 PM EDT Resulting Agency Comment Spec In Lab Mandi Barrera MD HEMATOLOGY ORDERABLES Performing Organization Address City/State/ZIP Code Phon e Number [place] [id number] [address]OSPITAL LAB[address]ORY Drive Heparin (unfractionated) Level (12/05/2019 10:52 PM EDT) P athologist Signature Heparin UFH <0.04 IU/mL [facility] LABORATORY Comment: Guidelines for therapeutic unfractionate [...] Organization Address City/State/ZIP Code Phon e Number [place] [id number] HOSPITAL LAB[address]ORY Drive MRI Brain wwo Contrast [...] below. ? Electronically signed by: ALBA Jenkins [facility] ([phone]), at 12/05/2019 10:02 PM Narrative 12/05/2019 10:02 [...] Merari Collins [facility] ([phone]), at 12/05/2019 10:02 PM Paris Lagos MD IMG MRI ORDERABLES (ABNORMAL) Hemogram (12/05/2019 1:00 PM EDT) Analysis Performed At Patho logist Time Signature WBC 8.7 4.0 - 9.5 [facility] LABORATORY RBC 4.17 (L) 4.58 - [place] DOV 5.54 [facility] x10(6)/[facility] LABORATORY Hemoglobin 12.4 (L) 13.7 - [place] DOV 16.5 gm/dL [facility] LABORATORY Hematocrit 37.0 (L) 40.5 - [place] DOV 48.5 % [facility] LABORATORY MCV 88.7 82.9 - [place] DOV 93.1 [facility] LABORATORY MCH 29.7 27.5 - [place] DOV 32.1 pg [facility] LABORATORY MCHC 33.5 32.0 - [place] DOV 35.7 gm/dL [facility] LABORATORY Platelets 173 145 - 357 [facility] x10(3)/[facility] LABORATORY RDWSD 47.3 (H) 36.0 - [facility] DOV 45.0 [facility] LABORATORY RDWCV 14.6 (H) 11.4 - [place] DOV 13.8 % [facility] LABORATORY MPV 12.1 7.6 - 12.9 [facility] DOV [facility] LABORATORY nRBC % Auto 0.0 % [facility] LABORATORY nRBC Abs Auto 0.000 0.000 - [place] DOV 0.000 [facility] x10(3)/[facility] LABORATORY Specimen Anatomical Collection Method Collection Time Receive d Time (Source) Location / / Volume Laterality Blood specimen 12/05/2019 1:00 PM 020 1:13 (specimen) EDT PM EDT Resulting Agency Comment Spec In Lab Gretchen Yoon MD HEMATOLOGY ORDERABLES Performing Organization Address City/State/ZIP Code Phon e Number MELINA [place] [id number]OSP[address] LABORATORY Drive EKG 12 Lead (12/05/2019 10:52 AM EDT) Component Value Ref Range Test Analysis Performed Pathologis t Method Time At Signature Ventricular rate 72 BPM MUSE SYSTEM Atrial Rate 72 BPM MUSE SYSTEM P-R Interval 138 ms MUSE SYSTEM QRS Duration 96 ms MUSE SYSTEM Q-T Interval 396 ms MUSE SYSTEM QTC Calculated 433 ms MUSE SYSTEM (Bezet) Calculated P [place] 65 degrees MUSE SYSTEM Calculated R [place] 13 degrees MUSE SYSTEM Calculated T [place] 0 degrees MUSE SYSTEM INTERPRETATION Sinus rhythm Occasional Premature ventricular complexe s MUSE SYSTEM Possible Inferior infarct (cited on or before 29-NOV-2019) Abnormal ECG When compared with ECG of 04-DEC-2019 10:43, Sinus rhythm has replaced Atrial fibrillation Vent. rate has decreased BY ??86 BPM Confirmed by MD Ceja Daniel ([id number]) on 12/05/2019 3:55:22 PM Specimen Anatomical Collection Method Collection Time Receive d Time (Source) Location / / Volume Laterality 12/05/2019 10:52 12/05/2019 3:55 AM EDT PM EDT Paris Lagos MD ECG ORDERABLES Performing Organization Address City/State/ZIP Code Phon e Number MUSE SYSTEM Duplex Study for DVT, Bilat legs (12/05/2019 7:00 AM EDT) Component Value Ref Test Analysis Performed At [facility] gist Range Method Time Signature VB Text Department: Vascular Surgery Lab VASCUBASE Report Patient: [id number] (ANGEL LUIS SALINAS) CPT: 48588 ICD10: I26.99 Referring Physician: GRETCHEN YOON ?? [...] athologist Signature Magnesium 0.87 0.69 - 1.07 [facility] mmol/L [facility] LABORATORY Specimen Anatomical Collection Method Collection Time Receive d Time (Source) Location / / Volume Laterality Blood specimen 12/05/2019 4:18 AM 020 4:31 (specimen) EDT AM EDT Resulting Agency Comment Spec In Lab Gretchen Yoon MD CHEMISTRY ORDERABLES Performing Organization Address City/State/[place] [address] (ABNORMAL) BMP w/fasting Glucose (12/05/2019 4:18 AM EDT) P athologist Signature Glucose 104 (H) 65 - 99 [facility] Fasting mg/dL [facility] LABORATORY Comment: ?Fasting* Glucose Interpretive C riteria [...] of Diabetes Mellitus, Position Statement from the [employer]. ??Diabete s Care, Volume 33, Supplement 1, Jul 2009 BUN 21 (H) 10 - 20 mg/dL [facility] LABORATORY Creatinine 1.02 0.80 - 1.50 mg/dL [facility] LABORATORY Sodium 136 135 - 145 [...] of body mass or the acutely ill. http://My Fashion Database/[facility] [place] CITYnkActive-Semi eGFR 84 >=60 mL/min/1.73 m?? [facility] LABORATORY Comment: The eGFR was calculated using the CKD-EP I equation. As with all creatinine based estimates of kidney function, eGFR values calculated with the CKD-EPI equation are not accurate in patients wi th acute kidney failure, extremes of body mass or the acutely ill. http://My Fashion Database/[facility] [place] CITYnkf Specimen Anatomical Collection Method Collection Time Receive d Time (Source) Location / / Volume Laterality Blood specimen 12/05/2019 4:18 AM 020 4:31 (specimen) EDT AM EDT Resulting Agency Comment Spec In Lab Gretchen Yoon MD CHEMISTRY ORDERABLES Performing Organization Address City/State/[place] [address] (ABNORMAL) Hemogram (12/05/2019 4:18 AM EDT) Analysis Performed At Patho logist Time Signature WBC 8.6 4.0 - 9.5 [facility] x10(3)/[facility] LABORATORY RBC 4.28 (L) 4.58 - [place] DOV 5.54 [facility] x10(6)/[facility] LABORATORY Hemoglobin 12.4 (L) 13.7 - [facility] DOV 16.5 gm/dL [facility] LABORATORY Hematocrit 37.3 (L) 40.5 - [facility] 48.5 % [facility] LABORATORY MCV 87.1 82.9 - [facility] 93.1 [facility] LABORATORY MCH 29.0 27.5 - [place] DOV 32.1 pg [facility] LABORATORY MCHC 33.2 32.0 - [place] DOV 35.7 gm/dL [facility] LABORATORY Platelets 163 145 - 357 [facility] x10(3)/[facility] LABORATORY RDWSD 46.4 (H) 36.0 - [facility] DOV 45.0 [facility] LABORATORY RDWCV 14.4 (H) 11.4 - [facility] DOV 13.8 % [facility] LABORATORY MPV 11.7 7.6 - 12.9 [facility]OV[facility] LAB[facility]ORY nRBC % Auto 0.0 % [facility] LABORATORY nRBC Abs Auto 0.000 0.000 - [place] [employer] 0.000 [facility] x10(3)/[facility] LABORATORY Specimen Anatomical Collection Method Collection Time Receive d Time (Source) Location / / Volume Laterality Blood specimen 12/05/2019 4:18 AM 020 4:31 (specimen) EDT AM EDT Resulting Agency Comment Spec In Lab Gretchen Yoon MD HEMATOLOGY ORDERABLES Performing Organization Address City/State/[place] [address] Cardiac for Morphology [...] For questions regarding this report, please contact [facility]. ? Electronically signed by: Roselyn Luciano [facility] ([phone]), at 12/04/2019 6:16 PM Narrative 12/04/2019 6:16 [...] from neck/greatest puja meter to back wall: LIBYAN 91, CAU 13: ??19 mm CORTES ??1, [...] from neck/greatest puja meter to back wall: LIBYAN 91, CAU 13: 19 mm CORTES 1, [...] pleural effusions. Findings called by Dr. Maciel Haines no and discussed with Dr. Stevens at 12/04/2019 [...] Roselyn Luciano [facility] ([phone]), at 12/04/2019 6:16 PM Gretchen Yoon MD IMG CT ORDERABLES (ABNORMAL) Hemogram (12/04/2019 12:55 PM EDT) Analysis Performed At Patho logist Time Signature WBC 8.9 4.0 - 9.5 [facility] x10(3)/[facility] LABORATORY RBC 4.69 4.58 - [facility] 5.54 [facility] x10(6)/[facility] LABORATORY Hemoglobin 13.5 (L) 13.7 - [facility] 16.5 gm/dL [facility] LABORATORY Hematocrit 41.7 40.5 - [place] MONAE 48.5 % [facility] LABORATORY MCV 88.9 82.9 - [place] MONAE 93.1 [facility] LABORATORY MCH 28.8 27.5 - [place] MONAE 32.1 pg [facility] LABORATORY MCHC 32.4 32.0 - [place] MONAE 35.7 gm/dL [facility] Platelets 196 145 - 357 [place] [facility] x10(3)/[facility] LABORATORY RDWSD 46.7 (H) 36.0 - [place] MONAE 45.0 [facility] LABORATORY RDWCV 14.5 (H) 11.4 - [place] MONAE 13.8 % [facility] LABORATORY MPV 12.1 7.6 - 12.9 [place] DOV [facility] LABORATORY nRBC % Auto 0.0 % [facility] nRBC Abs Auto 0.000 0.000 - [place] MONAE 0.000 [facility] x10(3)/[facility] LABORATORY Specimen Anatomical Collection Method Collection Time Receive d Time (Source) Location / / Volume Laterality Blood specimen 12/04/2019 12:55 0 1:06 (specimen) PM EDT PM EDT Resulting Agency Comment Spec In Lab Gretchen Yoon MD HEMATOLOGY ORDERABLES Performing Organization Address City/State/[place] [address] EKG 12 Lead (12/04/2019 10:43 AM EDT) Component Value Ref Range Test Analysis Performed Pathologis t Method Time At Signature Ventricular rate 158 BPM MUSE SYSTEM Atrial Rate 102 BPM MUSE SYSTEM QRS Duration 92 ms MUSE SYSTEM Q-T Interval 294 ms MUSE SYSTEM QTC Calculated 476 ms MUSE SYSTEM (Bezet) Calculated R [place] 17 degrees MUSE SYSTEM Calculated T [place] 90 degrees MUSE SYSTEM INTERPRETATION Atrial fibrillation with rapid ventricular response MUSE SYSTEM Possible Inferior infarct (cited on or before 29-NOV-2019) Abnormal ECG When compared with ECG of 30-NOV-2019 21:07, Atrial fibrillation has replaced Sinus rhythm Vent. rate has increased BY ??65 BPM Confirmed by MD Ceja Daniel ([id number]) on 12/05/2019 8:59:44 AM Specimen Anatomical Collection Method Collection Time Receive d Time (Source) Location / / Volume Laterality 12/04/2019 10:43 12/05/2019 8:59 AM EDT AM EDT Gretchen Yoon MD ECG ORDERABLES Performing Organization Address City/State/ZIP Code Phon e Number MUSE SYSTEM (ABNORMAL) Magnesium (12/04/2019 4:28 AM EDT) P athologist Signature Magnesium 1.17 (H) 0.69 - 1.07 [facility] mmol/L [facility] LABORATORY Specimen Anatomical Collection Method Collection Time Receive d Time (Source) Location / / Volume Laterality Blood specimen 12/04/2019 4:28 AM 020 4:40 (specimen) EDT AM EDT Resulting Agency Comment Spec In Lab Gretchen Yoon MD CHEMISTRY ORDERABLES Performing Organization Address City/State/[place] [address] (ABNORMAL) BMP w/fasting Glucose (12/04/2019 4:28 AM EDT) P athologist Signature Glucose 108 (H) 65 - 99 [facility] Fasting mg/dL [facility] LAB[facility]ORY Comment: ?Fasting* Glucose Interpretive C riteria [...] of Diabetes Mellitus, Position Statement from the [employer]. ??Diabete s Care, Volume 33, Supplement 1, Jul 2009 BUN 19 10 - 20 mg/dL [facility] LABORATORY Creatinine 0.89 0.80 - 1.50 mg/dL [facility] LABORAT[facility] Sodium 135 135 - 145 [...] of body mass or the acutely ill. http://My Fashion Database/[facility] [place] [place] eGFR 98 >=60 mL/min/1.73 m?? [facility] Comment: The eGFR was calculated using the CKD-EP I equation. As with all creatinine based estimates of kidney function, eGFR values calculated with the CKD-EPI equation are not accurate in patients wi th acute kidney failure, extremes of body mass or the acutely ill. http://My [employer] Database/[facility] [place] Specimen Anatomical Collection Method Collection Time Receive d Time (Source) Location / / Volume Laterality Blood specimen 12/04/2019 4:28 AM 020 4:40 (specimen) EDT AM EDT Resulting Agency Comment Spec In Lab Gretchen Yoon MD CHEMISTRY ORDERABLES Performing Organization Address City/State/[place] [address] (ABNORMAL) Hemogram (12/04/2019 4:28 AM EDT) Analysis Performed At Patho logist Time Signature WBC 7.8 4.0 - 9.5 [facility] x10(3)/[facility] LABORATORY RBC 4.10 (L) 4.58 - [facility] 5.54 [facility] x10(6)/[facility] LABORATORY Hemoglobin 12.0 (L) 13.7 - M[facility] MONAE 16.5 gm/dL [facility] LAB[facility]ORY Hematocrit 36.5 (L) 40.5 - [place] MONAE 48.5 % [facility] LAB[facility]ATORY MCV 89.0 82.9 - [facility]1 [facility] LABORATORY MCH 29.3 27.5 - MELINA VILLANUEVACK 32.1 pg [facility] LABORATORY MCHC 32.9 32.0 - [place] MONAE 35.7 gm/dL [facility] LAB[facility]ATORY Platelets 151 145 - 357 [facility] x10(3)/[facility] LABORATORY RDWSD 46.9 (H) 36.0 - [place] MONAE 45.0 [facility] LABORATORY RDWCV 14.4 (H) 11.4 - [place] DOV 13.8 % [facility] LAB[facility]ATORY MPV 12.2 7.6 - 12.9 [facility] nRBC % Auto 0.0 % [facility] LAB[facility] nRBC Abs Auto 0.000 0.000 - [place] MONAE 0.000 [facility] x10(3)/[facility] LABORATORY Specimen Anatomical Collection Method Collection Time Receive d Time (Source) Location / / Volume Laterality Blood specimen 12/04/2019 4:28 AM 020 4:40 (specimen) EDT AM EDT Resulting Agency Comment Spec In Lab Gretchen Yoon MD HEMATOLOGY ORDERABLES Performing Organization Address City/State/[place] [address] Potassium (12/03/2019 7:55 PM EDT) P athologist Signature Potassium 3.9 3.5 - 5.0 [facility] mmol/L [facility] Comment: Please note: ??Patients with WBC [...] Yoon MD CHEMISTRY ORDERABLES Performing Organization Address City/[facility]/[place] [address] Potassium (12/03/2019 1:57 PM EDT) P athologist Signature Potassium 3.7 3.5 - 5.0 [facility] DOV mmol/L [facility] Comment: Please note: ??Patients with WBC [...] Yoon MD CHEMISTRY ORDERABLES Performing Organization Address City/[facility]/[place] [address] (ABNORMAL) Hemogram (12/03/2019 1:57 PM EDT) Analysis Performed At Patho logist Time Signature WBC 8.8 4.0 - 9.5 [facility] DOV x10(3)/[facility] LABORATORY RBC 4.27 (L) 4.58 - [place] DOV 5.54 [facility] x10(6)/[facility] LABORATORY Hemoglobin 12.5 (L) 13.7 - [place] DOV 16.5 gm/dL [facility]ORY Hematocrit 37.5 (L) 40.5 - [place] DOV 48.5 % [facility] LABORATORY MCV 87.8 82.9 - [place] DOV 93.1 [facility] LABORATORY MCH 29.3 27.5 - [place] DOV 32.1 pg [facility] LAB[facility]ORY MCHC 33.3 32.0 - [place] DOV 35.7 gm/dL [facility] LAB[facility]ATORY Platelets 158 145 - 357 [facility] DOV x10(3)/[facility] LABORATORY RDWSD 46.9 (H) 36.0 - [place] DOV 45.0 [facility] LABORATORY RDWCV 14.5 (H) 11.4 - [place] MONAE 13.8 % [facility] LABORATORY MPV 12.2 7.6 - 12.9 [facility] MONAE fL [facility] LAB[facility]ORY nRBC % Auto 0.0 % [facility]AT[facility] nRBC Abs Auto 0.000 0.000 - [place] MONAE 0.000 [facility] x10(3)/[facility] LABORATORY Specimen Anatomical Collection Method Collection Time Receive d Time (Source) Location / / Volume Laterality Blood specimen 12/03/2019 1:57 PM 020 2:21 (specimen) EDT PM EDT Resulting Agency Comment Spec In Lab Gretchen Yoon MD HEMATOLOGY ORDERABLES Performing Organization Address City/State/ZIP Code Phon e Number [address] Magnesium (12/03/2019 4:02 AM EDT) athologist Signature Magnesium 0.79 0.69 - 1.07 [facility] mmol/L [facility]ORY Specimen Anatomical Collection Method Collection Time Receive d Time (Source) Location / / Volume Laterality Blood specimen 12/03/2019 4:02 AM 020 4:16 (specimen) EDT AM EDT Resulting Agency Comment Spec In Lab Gretchen Yoon MD CHEMISTRY ORDERABLES Performing Organization Address City/[facility]/ZIP Code Phon e Number [address] (ABNORMAL) BMP w/fasting Glucose (12/03/2019 4:02 AM EDT) P athologist Signature Glucose 100 (H) 65 - 99 [facility] Fasting mg/dL [facility] Comment: ?Fasting* Glucose Interpretive C riteria [...] of Diabetes Mellitus, Position Statement from the [employer]. ??Diabete s Care, Volume 33, Supplement 1, Jul 2009 BUN 17 10 - 20 mg/dL [facility] LABORATORY Creatinine 0.95 0.80 - 1.50 mg/dL [facility] LABORATORY Sodium 136 135 - 145 [...] of body mass or the acutely ill. http://My [employer] Database/[facility] [place] eGFR 92 >=60 mL/min/1.73 m?? [facility] Comment: The eGFR was calculated using the CKD-EP I equation. As with all creatinine based estimates of kidney function, eGFR values calculated with the CKD-EPI equation are not accurate in patients wi th acute kidney failure, extremes of body mass or the acutely ill. http://My [employer] Database/[facility] [place] Specimen Anatomical Collection Method Collection Time Receive d Time (Source) Location / / Volume Laterality Blood specimen 12/03/2019 4:02 AM 020 4:16 (specimen) EDT AM EDT Resulting Agency Comment Spec In Lab Gretchen Yoon MD CHEMISTRY ORDERABLES Performing Organization Address City/State/ZIP Code Phon e Number [address] (ABNORMAL) Hemogram (12/03/2019 4:02 AM EDT) Analysis Performed At Patho logist Time Signature WBC 9.1 4.0 - 9.5 [facility] DOV x10(3)/[facility] LABORATORY RBC 4.01 (L) 4.58 - [place] DOV 5.54 [facility] x10(6)/[facility] LABORATORY Hemoglobin 11.8 (L) 13.7 - [place] DOV 16.5 gm/dL [facility] LABORATORY Hematocrit 35.6 (L) 40.5 - [place] DOV 48.5 % [facility] LABORATORY MCV 88.8 82.9 - [facility] 93.1 [facility] LABORATORY MCH 29.4 27.5 - [place] DOV 32.1 pg [facility] LABORATORY MCHC 33.1 32.0 - [place] DOV 35.7 gm/dL [facility] LABORATORY Platelets 130 (L) 145 - 357 [facility] x10(3)/[facility] LABORATORY RDWSD 46.6 (H) 36.0 - [facility] DOV 45.0 [facility] LABORATORY RDWCV 14.4 (H) 11.4 - [facility] DOV 13.8 % [facility] LABORATORY MPV 12.4 7.6 - 12.9 [facility] DOV [facility] LABORATORY nRBC % Auto 0.0 % [facility] LABOR[facility] nRBC Abs Auto 0.000 0.000 - [place] DOV 0.000 [facility] x10(3)/[facility] LABORATORY Specimen Anatomical Collection Method Collection Time Receive d Time (Source) Location / / Volume Laterality Blood specimen 12/03/2019 4:02 AM 020 4:16 (specimen) EDT AM EDT Resulting Agency Comment Spec In Lab Gretchen Yoon MD HEMATOLOGY ORDERABLES Performing Organization Address City/State/[place] [address] XR Chest One View [...] below. ? Electronically signed by: Ashly Marley [facility] ([phone]), at 12/02/2019 1:35 PM Narrative 12/02/2019 1:35 [...] 10.6 (H) 4.0 - 9.5 [facility] x10(3)/[facility] LABORATORY RBC 4.00 (L) 4.58 - [place] DOV 5.54 [facility] x10(6)/[facility] LABORATORY Hemoglobin 11.9 (L) 13.7 - [facility] DOV 16.5 gm/dL [facility] LABORATORY Hematocrit 35.7 (L) 40.5 - [place] DOV 48.5 % [facility] LABORATORY MCV 89.3 82.9 - [place] DOV 93.1 [facility] LABORATORY MCH 29.8 27.5 - [place] DOV 32.1 pg [facility] LABORATORY MCHC 33.3 32.0 - [place] DOV 35.7 gm/dL [facility] LABORATORY Platelets 120 (L) 145 - 357 [facility] x10(3)/[facility] LABORATORY RDWSD 47.5 (H) 36.0 - [place] DOV 45.0 [facility] LABORATORY RDWCV 14.6 (H) 11.4 - [place] DOV 13.8 % [facility] LABORATORY MPV 12.0 7.6 - 12.9 [facility] nRBC % Auto 0.0 % [facility] LABORATORY nRBC Abs Auto 0.000 0.000 - [place] DOV 0.000 [facility] x10(3)/[facility] LABORATORY Specimen Anatomical Collection Method Collection Time Receive d Time (Source) Location / / Volume Laterality Blood specimen 12/02/2019 12:50 0 1:22 (specimen) PM EDT PM EDT Resulting Agency Comment Spec In Lab Gretchen Yoon MD HEMATOLOGY ORDERABLES Performing Organization Address City/State/ZIP Code Phon e Number [address] Blue Tube HOLD (12/02/2019 4:55 AM EDT) P athologist Signature Blue Hold Sample in [facility]. [facility] LABORATORY Specimen Anatomical Collection Method Collection Time Receive d Time (Source) Location / / Volume Laterality Blood specimen Venous Draw / 12/02/2019 4:55 AM 2019 5:03 (specimen) Unknown EDT AM EDT Darrell Glasgow MD HEMATOLOGY ORDERABLES Performing Organization Address City/[facility]/ZIP Code Phon e Number [address] Magnesium (12/02/2019 4:55 AM EDT) athologist Signature Magnesium 0.85 0.69 - 1.07 [facility] mmol/L [facility] LABORATORY Specimen Anatomical Collection Method Collection Time Receive d Time (Source) Location / / Volume Laterality Blood specimen 12/02/2019 4:55 AM 020 5:02 (specimen) EDT AM EDT Resulting Agency Comment Spec In Lab Gretchen Yoon MD CHEMISTRY ORDERABLES Performing Organization Address City/State/ZIP Code Phon e Number [address] (ABNORMAL) BMP w/fasting Glucose (12/02/2019 4:55 AM EDT) P athologist Signature Glucose 114 (H) 65 - 99 [facility] Fasting mg/dL [facility]ORY Comment: ?Fasting* Glucose Interpretive C riteria [...] of Diabetes Mellitus, Position Statement from the [employer]. ??Diabete s Care, Volume 33, Supplement 1, Jul 2009 BUN 13 10 - 20 mg/dL [facility] LABORATORY Creatinine 0.93 0.80 - 1.50 mg/dL [facility] LABORATORY Sodium 135 135 - 145 [...] of body mass or the acutely ill. http://My [employer] Database/[facility] [place] eGFR 94 >=60 mL/min/1.73 m?? [facility] Comment: The eGFR was calculated using the CKD-EP I equation. As with all creatinine based estimates of kidney function, eGFR values calculated with the CKD-EPI equation are not accurate in patients wi th acute kidney failure, extremes of body mass or the acutely ill. http://My [employer] Database/[facility] [place] Specimen Anatomical Collection Method Collection Time Receive d Time (Source) Location / / Volume Laterality Blood specimen 12/02/2019 4:55 AM 020 5:02 (specimen) EDT AM EDT Resulting Agency Comment Spec In Lab Gretchen Yoon MD CHEMISTRY ORDERABLES Performing Organization Address City/State/ZIP Code Phon e Number [address] (ABNORMAL) Hemogram (12/02/2019 4:55 AM EDT) Analysis Performed At Patho logist Time Signature WBC 9.3 4.0 - 9.5 [facility] LABORATORY RBC 3.71 (L) 4.58 - [place] DOV 5.54 [facility] x10(6)/[facility] LABORATORY Hemoglobin 10.8 (L) 13.7 - [facility] 16.5 gm/dL [facility] LABORATORY Hematocrit 33.1 (L) 40.5 - [facility] 48.5 % [facility] LABORATORY MCV 89.2 82.9 - [facility] 93.1 [facility] LABORATORY MCH 29.1 27.5 - [place] DOV 32.1 pg [facility] LABORATORY MCHC 32.6 32.0 - [place] DOV 35.7 gm/dL [facility] LABORATORY Platelets 93 (L) 145 - 357 [facility] x10(3)/[facility] LABORATORY RDWSD 47.1 (H) 36.0 - [facility] DOV 45.0 [facility] LABORATORY RDWCV 14.6 (H) 11.4 - [facility] DOV 13.8 % [facility] LABORATORY MPV 11.7 7.6 - 12.9 [facility]ORY nRBC % Auto 0.0 % [facility] nRBC Abs Auto 0.000 0.000 - [place] DOV 0.000 [facility] x10(3)/[facility] LABORATORY Specimen Anatomical Collection Method Collection Time Receive d Time (Source) Location / / Volume Laterality Blood specimen 12/02/2019 4:55 AM 020 5:02 (specimen) EDT AM EDT Resulting Agency Comment Spec In Lab Gretchen Yoon MD HEMATOLOGY ORDERABLES Performing Organization Address City/State/[place] [address] Transfuse 1 unit platelets, [...] For questions regarding this report, please contact [facility] number below. ? Electronically signed by: Angel Luis Barboza MD, [facility] ([phone]), at 12/01/2019 8:02 PM Narrative 12/01/2019 8:02 [...] signed by: Angel Luis Barboza MD, [facility] [place] ([phone]), at 12/01/2019 8:02 PM Gretchen Yoon MD IMG MRI ORDERABLES Prepare Platelets, Apheresis (12/01/2019 6:20 PM EDT) athologist Signature Dispensed? Yes [facility] Specimen Anatomical Collection Method Collection Time Receive d Time (Source) Location / / Volume Laterality Blood specimen 12/01/2019 6:20 PM 020 6:18 (specimen) EDT PM EDT Gretchen Yoon MD BLOOD BANK ORDERABLES Performing Organization Address City/State/[place] [address] Duplex for DVT, Arm, Unilat (12/01/2019 5:08 PM EDT) Component Value Ref Test Analysis Performed At [facility] Range Method Time Signature VB Text Department: Vascular Surgery Lab VASCUBASE Report Patient: [id number] (ANGEL LUIS SALINAS) CPT: 11550 ICD10: R60.0 Referring Physician: GRETCHEN YOON ?? [...] For questions regarding this report, please contact [facility] number below. ? Electronically signed by: Merari Collins [facility] ([phone]), at 12/01/2019 3:53 PM Narrative 12/01/2019 3:53 PM EDT EXAMINATION: CT HEAD WO CONTRAST (GENERIC) CLINICAL HISTORY: Headache, intracranial hemorrhage suspected Serial CT scan: please assess for propag ation of known ICH noted on prior Head CT/imaging. TECHNIQUE: CT head performed without intravenous co ntrast administration. COMPARISON: Head CT 11/30/2019. CT angiogram of the [place] 11/01. FINDINGS: Ventricles are normal [...] Head CT 11/30/2019. CT angiogram of the [place] 11/01. FINDINGS: Ventricles are normal [...] Scan, Peripheral Blood (12/01/2019 12:51 PM EDT) [facility] Method Time Signature Plat Estimate Decreased [facility] RBC Morphology Normal [facility] Giant Less than 1 /HPF [facility] LABORATORY Specimen Anatomical Collection Method Collection Time Receive d Time (Source) Location / / Volume Laterality Blood specimen 12/01/2019 12:51 0 1:05 (specimen) PM EDT PM EDT Resulting Agency Comment Spec In Lab Riki Stevens MD HEMATOLOGY ORDERABLES Performing Organization Address City/State/[place] [address] (ABNORMAL) Differential, Automated (12/01/2019 12:51 PM EDT) [facility] Method Time Signature Neutrophils % 74.9 % [facility] Neutr Abs (ANC) 6.34 (H) 1.70 - [facility] 6.10 [facility] x10(3)/[facility] LABORATORY Lymphocytes % 11.4 % [facility] Lymphocytes Abs 1.0 0.9 - 3.2 [facility] x10(3)/[facility] LABORATORY Monocytes % 12.4 % [facility] Monocyte Abs 1.0 (H) 0.3 - 0.9 [facility] x10(3)/[facility] LABORATORY Eosinophils % 0.4 % [facility] Eosinophils Abs 0.0 0.0 - 0.4 [facility] x10(3)/[facility] LABORATORY Basophils % 0.4 % [facility] Basophils Abs 0.0 0.0 - 0.1 [facility] x10(3)/[facility] LABORATORY Immature [...] Pita Gran Abs 0.04 0.00 - 0.04 x10(3)/[facility] LABORATORY Specimen Anatomical Collection Method Collection Time Receive d Time (Source) Location / / Volume Laterality Blood specimen 12/01/2019 12:51 0 1:05 (specimen) PM EDT PM EDT Resulting Agency Comment Spec In Lab Riki Stevens MD HEMATOLOGY ORDERABLES Performing Organization Address City/State/[place] [address] (ABNORMAL) Hemogram (12/01/2019 12:51 PM EDT) Analysis Performed At Patho logist Time Signature WBC 8.4 4.0 - 9.5 [facility] x10(3)/[facility] LABORATORY RBC 3.69 (L) 4.58 - [facility] 5.54 [facility] x10(6)/[facility] LABORATORY Hemoglobin 10.8 (L) 13.7 - [facility] 16.5 gm/dL [facility] LABORATORY Hematocrit 32.4 (L) 40.5 - [facility] 48.5 % [facility] LABORATORY MCV 87.8 82.9 - [facility] 93.1 fL [facility] LABORATORY MCH 29.3 27.5 - [facility] 32.1 pg [facility] LABORATORY MCHC 33.3 32.0 - [facility] 35.7 gm/dL [facility] LABORATORY Platelets 72 (L) 145 - 357 [facility] x10(3)/[facility] LABORATORY RDWSD 47.2 (H) 36.0 - [facility] 45.0 [facility] LABORATORY RDWCV 14.6 (H) 11.4 - [facility] 13.8 % [facility] LABORATORY MPV 12.2 7.6 - 12.9 [facility] LABORATORY nRBC % Auto 0.0 % [facility] nRBC Abs Auto 0.000 0.000 - [facility] 0.000 [facility] x10(3)/[facility] LABORATORY Specimen Anatomical Collection Method Collection Time Receive d Time (Source) Location / / Volume Laterality Blood specimen 12/01/2019 12:51 0 1:05 (specimen) PM EDT PM EDT Resulting Agency Comment Spec In Lab Riki Stevens MD HEMATOLOGY ORDERABLES Performing Organization Address City/[facility]/ZIP Code Phon e Number [address] (ABNORMAL) Coox2 (12/01/2019 11:42 AM EDT) Analysis Performed At Patho logist Time Signature pO2 Coox 30 mmHg [facility] Hgb Blood Gas 11.6 (L) 13.7 - [facility] 16.5 gm/dL [facility] LABORATORY O2HB Coox 60.8 % [facility] COHB Coox 0.6 % [facility] Comment: Nonsmokers: 0.5-1.5% COHB Smokers: Variable, but usually less than 10% Toxic: 20-30% COHB Lethal: Greater than 60% COHB METHB Coox 0.6 <=1.5 % [facility] LABORATORY Source Coox Mixed Venous [facility] Specimen Anatomical Collection Method Collection Time Receive d Time (Source) Location / / Volume Laterality Blood specimen 12/01/2019 11:42 0 (specimen) AM EDT 11:42 AM EDT Gretchen Yoon MD CHEMISTRY ORDERABLES Performing Organization Address City/[facility]/ZIP Code Phon e Number [address] Sedimentation rate (12/01/2019 3:55 AM EDT) P athologist Signature Sed Rate 25 3 - 46 [facility] mm/hr [facility] LABORATORY Comment: Effective June 11, 2019 new [...] Winn MD HEMATOLOGY ORDERABLES Performing Organization Address City/[facility]/ZIP Code Phon e Number [address] (ABNORMAL) CRP, acute inflammation [...] Winn MD CHEMISTRY ORDERABLES Performing Organization Address City/[facility]/ZIP Code Phon e Number [address] ABORH Recheck Status (12/01/2019 3:55 AM EDT) Patholo gist Method Time Signature ABORH Recheck Order Placed [facility] LABORATORY ABORH Type Complete [facility] LABORATORY Specimen Anatomical Collection Method Collection Time Receive d Time (Source) Location / / Volume Laterality Blood specimen 12/01/2019 3:55 AM 020 4:15 (specimen) EDT AM EDT Resulting Agency Comment Spec In Lab Lewis Gee MD BLOOD BANK ORDERABLES Performing Organization Address City/[facility]/ZIP Code Phon e Number [address] Antibody screen (12/01/2019 3:55 AM EDT) Patholo gist Method Time Signature Ab Screen Negative [facility] LABORATORY Expires at 12/04/2019 MELINA MARSHDOV [id number] on: [facility] LABORATORY Specimen Anatomical Collection Method Collection Time Receive d Time (Source) Location / / Volume Laterality Blood specimen 12/01/2019 3:55 AM 020 4:15 (specimen) EDT AM EDT Resulting Agency Comment Spec In Lab Lewis Gee MD BLOOD BANK ORDERABLES Performing Organization Address City/[facility]/[place] [address] ABO/Rh Typing (12/01/2019 3:55 AM EDT) athologist Signature ABORh Type AB Pos [facility] LABORATORY Specimen Anatomical Collection Method Collection Time Receive d Time (Source) Location / / Volume Laterality Blood specimen 12/01/2019 3:55 AM 020 4:15 (specimen) EDT AM EDT Resulting Agency Comment Spec In Lab Lewis Gee MD BLOOD BANK ORDERABLES Performing Organization Address City/[facility] [place] [address] (ABNORMAL) Troponin (12/01/2019 3:55 AM EDT) athologist [facility] Troponin-T 4.35 (H) 0.00 - [facility] 0.00 ng/mL [facility] LABORATORY Comment: result rechecked-slw The 99th percentile [...] additional sample may be indicated. Reference: [place] Definition of Myocardial Infarction. Journal of the Stateless College of Cardiology 2012;60:1581-98 Specimen Anatomical Collection Method Collection Time Receive d Time (Source) Location / / Volume Laterality Blood specimen 12/01/2019 3:55 AM 020 4:00 (specimen) EDT AM EDT Resulting Agency Comment Spec In Lab Gretchen Yoon MD CHEMISTRY ORDERABLES Performing Organization Address City/[facility]/ZIP Code Phon e Number [address] Magnesium (12/01/2019 3:55 AM EDT) athologist Signature Magnesium 0.96 0.69 - 1.07 [facility] mmol/L [facility] LABORATORY Specimen Anatomical Collection Method Collection Time Receive d Time (Source) Location / / Volume Laterality Blood specimen 12/01/2019 3:55 AM 020 4:00 (specimen) EDT AM EDT Resulting Agency Comment Spec In Lab Gretchen Yoon MD CHEMISTRY ORDERABLES Performing Organization Address City/[facility]/ZIP [facility] [place] [address] (ABNORMAL) BMP w/fasting Glucose (12/01/2019 3:55 AM EDT) P athologist Signature Glucose 148 (H) 65 - 99 [facility] Fasting mg/dL [facility] LABORATORY Comment: ?Fasting* Glucose Interpretive C riteria [...] of Diabetes Mellitus, Position Statement from the Stateless Diabetes Association. ??Diabete s Care, Volume 33, Supplement 1, Jul 2009 BUN 11 10 - 20 mg/dL [facility] LABORATORY Creatinine 0.96 0.80 - 1.50 mg/dL [facility] LABORATORY Sodium 132 (L) 135 - [...] of body mass or the acutely ill. http://My Fashion Database/[facility] [place] eGFR 91 >=60 mL/min/1.73 m?? [facility] LABORATORY Comment: The eGFR was calculated using the CKD-EP I equation. As with all creatinine based estimates of kidney function, eGFR values calculated with the CKD-EPI equation are not accurate in patients wi th acute kidney failure, extremes of body mass or the acutely ill. http://My Fashion Database/[facility] [place] Specimen Anatomical Collection Method Collection Time Receive d Time (Source) Location / / Volume Laterality Blood specimen 12/01/2019 3:55 AM 020 4:00 (specimen) EDT AM EDT Resulting Agency Comment Spec In Lab Gretchen Yoon MD CHEMISTRY ORDERABLES Performing Organization Address City/State/[place] [address] (ABNORMAL) Hemogram (12/01/2019 3:55 AM EDT) Analysis Performed At Patho logist Time Signature WBC 11.0 (H) 4.0 - 9.5 [facility] x10(3)/[facility] LABORATORY RBC 3.46 (L) 4.58 - [facility] DOV 5.54 [facility] x10(6)/[facility] LABORATORY Hemoglobin 10.2 (L) 13.7 - [facility] 16.[facility] gm/dL [facility] LABORATORY Hematocrit 31.2 (L) 40.5 - [facility] 48.5 % [facility] LABORATORY MCV 90.2 82.9 - [facility] 93.1 [facility] LABORATORY MCH 29.5 27.5 - [facility] 32.1 pg [facility] LABORATORY MCHC 32.7 32.0 - [facility] 35.7 gm/dL [facility] LABORATORY Platelets 98 (L) 145 - 357 [facility] x10(3)/[facility] LABORATORY RDWSD 47.9 (H) 36.0 - [facility] 45.0 [facility] LABORATORY RDWCV 14.6 (H) 11.4 - [facility] DOV 13.8 % [facility] LABORATORY MPV 12.3 7.6 - 12.9 [facility] LABORATORY nRBC % Auto 0.0 % [facility] LABORATORY nRBC Abs Auto 0.000 0.000 - [facility] 0.000 [facility] x10(3)/[facility] LABORATORY Specimen Anatomical Collection Method Collection Time Receive d Time (Source) Location / / Volume Laterality Blood specimen 12/01/2019 3:55 AM 020 4:00 (specimen) EDT AM EDT Resulting Agency Comment Spec In Lab Gretchen Yoon MD HEMATOLOGY ORDERABLES Performing Organization Address City/State/[place] [address] (ABNORMAL) BLOOD GAS 2 ARTERIAL (11/30/2019 10:39 PM EDT) Analysis Performed At Patho logist Time Signature pH Art 7.45 7.35 - [facility] 7.45 [facility] LABORATORY pCO2 Art 23 (L) 35 - 45 [facility] mmHg [facility] LABORATORY pO2 Art 76 (L) 85 - 104 [facility] mmHg [facility] LABORATORY HCO3 Art 15.3 (L) 20.0 - [facility] 26.0 [facility] mmol/L [facility] LABORATORY BE Art -8.7 (L) -3.0 - 3.0 [facility] mmol/L [facility] LABORATORY Hgb Blood Gas 11.7 (L) 13.7 - [facility] 16.5 gm/dL [facility] LABORATORY O2HB Art 94.2 94.0 - [facility] 97.0 % [facility] LABORATORY COHB Art 0.5 % [facility] LABORATORY Comment: Nonsmokers: 0.5-1.5% COHB Smokers: Variable, but usually less than 10% Toxic: 20-30% COHB Lethal: Greater than 60% COHB METHB Art 0.6 <=1.5 % [facility] LABORATORY Na Whole Blood 133 (L) 135 - 145 mmol/L [facility] LABORATORY K Whole Blood 3.8 3.5 [...] [facility] FIO2 Art 100 % [facility] LABORATORY PF Ratio Art 76 [facility] LABORATORY Specimen Anatomical Collection Method Collection Time Receive d Time (Source) Location / / Volume Laterality Blood specimen 11/30/2019 10:39 0 (specimen) PM EDT 10:39 PM EDT Gretchen Yoon MD CHEMISTRY ORDERABLES Performing Organization Address City/[facility]/[place] [address] EKG 12 Lead (11/30/2019 [...] (Bezet) Calculated P 12 degrees [facility] SYSTEM [place] Calculated R 19 degrees MUSE SYSTEM [place] Calculated T -47 degrees MUSE SYSTEM [place] INTERPRETATION Sinus rhythm with Premature supraventricular complexes [...] Yoon MD ECG ORDERABLES Performing Organization Address City/[facility]/ZIP Code Phon e Number MUSE SYSTEM (ABNORMAL) Urinalysis Microscopic Exam (11/30/2019 8:40 PM EDT) P athologist Signature RBC UA 27 (H) 0 - 3 /HPF [facility] LABORATORY WBC UA 4 (H) 0 - 3 /HPF [facility] LABORATORY Hyaline Cast 3 (H) 0 - 2 /LPF [facility] LABORATORY Specimen (Source) Anatomical Collection Method Collection Time Re ceived Time Location / / Volume Laterality Urine specimen 11/30/2019 8:40 11/30/2019 obtained via PM EDT 10:51 PM EDT indwelling urinary catheter (specimen) Resulting Agency Comment Spec In Lab Rossy Winn MD URINE ORDERABLES Performing Organization Address City/State/ZIP Code Phon e Number [address] (ABNORMAL) Urinalysis with reflex Culture (11/30/2019 8:40 PM EDT) Patholo gist Method Time Signature Glucose UA Negative Negative [facility] mg/dL [facility] LABORATORY Protein UA Negative Negative [facility] mg/dL [facility] LABORATORY Bilirubin UA Negative Negative [facility] mg/dL [facility] LABORATORY Comment: Clinical correlation required for positi ve Urine Bilirubin results as false positive may occur with some drugs and d rug related products. If a false positive is suspected a serum total bili morales should be considered if clinically indicated. Urobilinogen UA Normal Normal mg/dL [facility] LABORATORY pH UA 5.5 5.0 - 8.0 [facility] LABORATORY Blood UA Moderate (A) Negative mg/dL [facility] LABORATORY Ketones UA 40 (A) Negative mg/dL [facility] LABORATORY Nitrite UA Negative Negative [facility] LABORATORY Leukocytes UA Trace (A) Negative [facility] LABORATORY Appearance UA Clear Clear [facility] LABORATORY Spec [place] UA 1.026 1.006 - 1.030 [facility] LABORATORY Color UA Yellow Yellow [facility] LABORATORY Culture Reflexed No [facility] LABORATORY Specimen (Source) Anatomical Collection Method Collection Time Re ceived Time Location / / Volume Laterality Urine specimen 11/30/2019 8:40 11/30/2019 obtained via PM EDT 10:51 PM EDT indwelling urinary catheter (specimen) Resulting Agency Comment Spec In Lab Gretchen Yoon MD URINE ORDERABLES Performing Organization Address City/[facility]/ZIP Code Phon e Number [address] (ABNORMAL) pro-Brain Natriuretic Peptide (11/30/2019 8:30 PM EDT) athologist Signature ProBNP 2,802 (H) <=125 [facility]/mL [facility] LABORATORY Specimen Anatomical Collection Method Collection Time Receive d Time (Source) Location / / Volume Laterality Blood specimen Venous Draw / 11/30/2019 8:30 PM 2019 8:36 (specimen) Unknown EDT PM EDT Resulting Agency Comment Spec In Lab Rossy Winn MD CHEMISTRY ORDERABLES Performing Organization Address City/[facility]/ZIP Code [place] [address] (ABNORMAL) Troponin (11/30/2019 8:30 PM EDT) P athologist Signature Troponin-T 5.04 (H) 0.00 - MELINA MONAE 0.00 ng/mL [facility] LABORATORY Comment: The 99th percentile for Troponin [...] additional sample may be indicated. Reference: [place] Definition of Myocardial Infarction. Journal of the [employer] College of Cardiology 2012;60:1581-98 Specimen Anatomical Collection Method Collection Time Receive d Time (Source) Location / / Volume Laterality Blood specimen Venous Draw / 11/30/2019 8:30 PM 2019 8:36 (specimen) Unknown EDT PM EDT Resulting Agency Comment Spec In Lab Rossy Winn MD CHEMISTRY ORDERABLES Performing Organization Address City/State/[place] [address] [facility] LAB[address] Drive Magnesium (11/30/2019 8:30 PM EDT) athologist Signature Magnesium 0.79 0.69 - 1.07 [facility] mmol/L [facility] LABORATORY Specimen Anatomical Collection Method Collection Time Receive d Time (Source) Location / / Volume Laterality Blood specimen 11/30/2019 8:30 PM 020 8:35 (specimen) EDT PM EDT Resulting Agency Comment Spec In Lab Gretchen Yoon MD CHEMISTRY ORDERABLES Performing Organization Address City/State/ZIP Code Phon e Number [address] (ABNORMAL) Basic Metabolic Panel (non-fasting) (11/30/2019 8:30 PM EDT) athologist Signature Glucose Lvl 132 65 - 199 [facility] mg/dL [facility] LABORATORY Comment: Diabetes: >=200 mg/dL plus symp toms BUN 12 10 - 20 mg/dL [facility] LABORATORY Creatinine 0.94 0.80 - 1.50 mg/dL [facility] LABORATORY Sodium 136 135 - 145 [...] of body mass or the acutely ill. http://My Fashion Database/[facility] [place] [place]nk[facility] eGFR 93 >=60 mL/min/1.73 m?? [facility] LABORATORY Comment: The eGFR was calculated using the CKD-EP I equation. As with all creatinine based estimates of kidney function, eGFR values calculated with the CKD-EPI equation are not accurate in patients wi th acute kidney failure, extremes of body mass or the acutely ill. http://My [employer] Database/[facility] [place] [place] Specimen Anatomical Collection Method Collection Time Receive d Time (Source) Location / / Volume Laterality Blood specimen 11/30/2019 8:30 PM 020 8:35 (specimen) EDT PM EDT Resulting Agency Comment Spec In Lab Gretchen Yoon MD CHEMISTRY ORDERABLES Performing Organization Address [facility]/ZIP [facility] Phon e Number [address] Blood culture (11/30/2019 8:30 PM EDT) Patholo gist Method Time Signature Blood Culture No growth MELINA MONAE at [address]. [facility] Specimen Anatomical Collection Method Collection Time Receive d Time (Source) Location / / Volume Laterality Blood specimen 11/30/2019 8:30 PM 020 9:40 (specimen) EDT PM EDT Comment: L HAND Resulting Agency Comment Spec In Lab Gretchen Yoon MD MICROBIOLOGY - BLOOD ORDERAB LES Performing Organization Address City/[facility] Code Phon e Number [address] Blood culture (11/30/2019 8:30 PM EDT) Patholo gist Method Time Signature Blood Culture No growth MELINA WHITTENCOCK at 5 days. [facility] Specimen Anatomical Collection Method Collection Time Receive d Time (Source) Location / / Volume Laterality Blood specimen 11/30/2019 8:30 PM 020 9:40 (specimen) EDT PM EDT Comment: R HAND Resulting Agency Comment Spec In Lab Gretchen Yoon MD MICROBIOLOGY - BLOOD ORDERAB LES Performing Organization Address City/State/ZIP Code Phon e Number [place] [id number] HOSPITAL LAB[address]ORY Drive XR Chest One View [...] number below. Electronically signed by: Latoya Sims [facility] ([phone]), at 11/30/2019 8:32 PM Gretchen Yoon MD IMG DX ORDERABLES (ABNORMAL) BLOOD GAS 2 ARTERIAL (11/30/2019 8:09 PM EDT) Analysis Performed At Patho logist Time Signature pH Art 7.45 7.35 - [facility] 7.45 [facility] LABORATORY pCO2 Art 27 (L) 35 - 45 [facility] mmHg [facility] LABORATORY pO2 Art 68 (L) 85 - 104 [facility] mmHg [facility] LABORATORY HCO3 Art 18.2 (L) 20.0 - [facility] 26.0 [facility] mmol/L HOSPITAL LABORATORY BE Art -5.9 (L) -3.0 - 3.0 [facility] mmol/L [facility] LABORATORY Hgb Blood Gas 12.4 (L) 13.7 - [facility] 16.5 gm/dL [facility] LABORATORY O2HB Art 93.1 (L) 94.0 - [facility] 97.0 % [facility] LABORATORY COHB Art 0.8 % [facility] LABORATORY Comment: Nonsmokers: 0.5-1.5% COHB Smokers: Variable, but usually less than 10% Toxic: 20-30% COHB Lethal: Greater than 60% COHB METHB Art 0.4 <=1.5 % [facility] LABORATORY Na Whole Blood 133 (L) 135 - 145 mmol/L [facility] LABORATORY K Whole Blood 3.6 3.5 [...] [facility] LABOR[facility] Flow Art 5.0 LPM [facility] LABORATORY Specimen Anatomical Collection Method Collection Time Receive d Time (Source) Location / / Volume Laterality Blood specimen 11/30/2019 8:09 PM 020 8:09 (specimen) EDT PM EDT Gretchen Yoon MD CHEMISTRY ORDERABLES Performing Organization Address City/State/[place] [address] Angiogram [place] (11/30/2019 4:36 PM EDT) Anatomical [...] signed by: Angel Luis Barboza MD, [facility] [place] ([phone]), at 11/30/2019 5:04 PM Narrative 11/30/2019 5:04 PM EDT EXAMINATION: CT HEAD WO CONTRAST (GENERIC), CT ANGIOGRAM [place] CLINICAL HISTORY: Headache, intracranial hemorrhage suspected F/U on known ICH - assessing for propaga tion TECHNIQUE: CT head performed without intravenous co ntrast administration. CT angiogram [place] 65 cc Omnipaque 350 administered [...] HEAD WO CONTRAST (GENERI C), CT ANGIOGRAM [place] CLINICAL HISTORY: Headache, intracranial hemorrhage suspected F/U on known ICH - assessing for propaga tion TECHNIQUE: CT head performed without intravenous co ntrast administration. CT angiogram [place] 65 cc Omnipaque 350 administered [...] signed by: Angel Luis Barboza MD, [facility] [place] ([phone]), at 11/30/2019 5:04 PM Gretchen Yoon MD [...] signed by: Angel Luis Barboza MD, [facility] [place] ([phone]), at 11/30/2019 5:04 PM Narrative 11/30/2019 5:04 PM EDT EXAMINATION: CT HEAD WO CONTRAST (GENERIC), CT ANGIOGRAM [place] CLINICAL HISTORY: Headache, intracranial hemorrhage suspected F/U on known ICH - assessing for propaga tion TECHNIQUE: CT head performed without intravenous co ntrast administration. CT angiogram [place] 65 cc Omnipaque 350 administered [...] HEAD WO CONTRAST (GENERI C), CT ANGIOGRAM [place] CLINICAL HISTORY: Headache, intracranial hemorrhage suspected F/U on known ICH - assessing for propaga tion TECHNIQUE: CT head performed without intravenous co ntrast administration. CT angiogram [place] 65 cc Omnipaque 350 administered [...] Barboza MD, [facility] ([phone]), at 11/30/2019 5:04 PM Gretchen Yoon MD [...] 453 ms MUSE SYSTEM (Bezet) Calculated P [place] 52 degrees MUSE SYSTEM Calculated R [place] 5 degrees MUSE SYSTEM Calculated T [place] -60 degrees MUSE SYSTEM INTERPRETATION Sinus rhythm [...] [place] ? (Age): 1945(74y) Med Rec#: ? [id number] ?Sex: ?M ? Site Loc: ? [facility] ?Ht / Wt: ??178(cm)/64(kg) Pt. Loc: ?CCU ? BSA: ?1.8 Study Date: ?? 11/30/2019 ?Pt. Type: Inpatient Tape: ? Referring: LAHEYMICHAELJ Reading: Tello Mejia ([id number]) Dredge Operator: Eve Lolita Diagnosis: *ST elevation (STEMI) [...] Vmax ?0.58 ? m/sec ? MV deceleration [id number] ? m sec ? MV A-wave Vmax [...] ? Mid-Inferior ?Akinetic ? Mid-Inferoseptal ?Normal ? Lewis-Septal ? Normal ? Lewis-Anterior ? Normal ? Lewis-Lateral ?Normal ? Lewis-Inferior ? Hypokinetic ? Lewis-Tip ?Normal ? This report has been electronically sign ed by: _ Tello Mejia MD ? 11/30/2019 12: 45:27 Images reviewed and interpretation [facility] Cardiac Ultrasound Laboratory Procedure Note Tello Mejia MD - 11/30/2019Formatti ng of this note might be different from the original. Procedure: Transthoracic Echocardiogram Patient: RITA ACOSTA(Age): [birth year](74y) Med Rec#: [id number] Sex: M Site Loc: [facility] Ht / Wt: 178(cm)/64(kg) Pt. Loc: CCU BSA: 1.8 Study Date: 11/30/2019 Pt. Type: Inpatie nt Tape: Referring: GILMER Reading: Tello Mejia ([id number]) Dredge Operator: Eve Lolita Diagnosis: *ST elevation (STEMI) [...] MV E-wave Vmax 0.58 m/sec MV deceleration [id number] msec MV A-wave Vmax 0.74 m/sec MV [...] Hypokinetic Mid-Posterolateral Hypokinetic Mid-Inferior Akinetic Mid-Inferoseptal Normal Lewis-Septal Normal Lewis-Anterior Normal Lewis-Lateral Normal Lewis-Inferior Hypokinetic Lewis-Tip Normal This report has been electronically sign ed by: _ Tello Mejia MD 11/30/2019 12:45:27 Images [facility] and [facility] Card[facility] Gretchen Yoon [...] For questions regarding this report, please contact [facility]. ? Electronically signed by: Angel Luis Barboza MD, [facility] ([phone]), at 11/30/2019 12:04 PM Narrative 11/30/2019 12:04 [...] signed by: Angel Luis Barboza MD, [facility] [place] ([phone]), at 11/30/2019 12:04 PM Gretchen Yoon MD IMG CT ORDERABLES Magnesium (11/30/2019 8:30 AM EDT) athologist Signature Magnesium 0.88 0.69 - 1.07 [facility] mmol/L [facility] LABORATORY Specimen Anatomical Collection Method Collection Time Receive d Time (Source) Location / / Volume Laterality Blood specimen Venous Draw / 11/30/2019 8:30 AM 2019 8:37 (specimen) Unknown EDT AM EDT Resulting Agency Comment Spec In Lab Rossy Winn MD CHEMISTRY ORDERABLES Performing Organization Address City/State/[place] [address] (ABNORMAL) CK (11/30/2019 8:30 AM EDT) athologist Signature CK, Total 1,645 (H) 0 - 200 [facility] unit/L [facility] LABORATORY Specimen Anatomical Collection Method Collection Time Receive d Time (Source) Location / / Volume Laterality Blood specimen 11/30/2019 8:30 AM 020 8:32 (specimen) EDT AM EDT Resulting Agency Comment Spec In Lab Gretchen Yoon MD CHEMISTRY ORDERABLES Performing Organization Address City/[facility]/[place] [address] (ABNORMAL) Troponin (11/30/2019 8:30 AM EDT) P athologist Signature Troponin-T 8.04 (H) 0.00 - MELINA MONAE 0.00 ng/mL [facility] LABORATORY Comment: result rechecked-rancho The 99th percentile [...] additional sample may be indicated. Reference: [place] Definition of Myocardial Infarction. Journal of the [employer] College [employer] 2012;60:1581-98 Specimen Anatomical Collection Method Collection Time Receive d Time (Source) Location / / Volume Laterality Blood specimen 11/30/2019 8:30 AM 020 8:32 (specimen) EDT AM EDT Resulting Agency Comment Spec In Lab Gretchen Yoon MD CHEMISTRY ORDERABLES Performing Organization Address City/State/ZIP Code Phon e Number [place] [address] EKG 12 Lead (11/30/2019 7:57 AM EDT) Component Value Ref Range Test Analysis Performed Pathologis t Method Time At Signature Ventricular rate 64 BPM MUSE SYSTEM Atrial Rate 64 BPM MUSE SYSTEM P-R Interval 132 ms MUSE SYSTEM QRS Duration 78 ms MUSE SYSTEM Q-T Interval 420 ms MUSE SYSTEM QTC Calculated 433 ms MUSE SYSTEM (Bezet) Calculated P [place] 28 degrees MUSE SYSTEM Calculated R [place] 7 degrees MUSE SYSTEM Calculated T [place] -33 degrees MUSE SYSTEM INTERPRETATION Sinus rhythm [...] BMP w/fasting Glucose (11/30/2019 2:15 AM EDT) P athologist Signature Glucose 147 (H) 65 - 99 [facility] Fasting mg/dL [facility] Comment: ?Fasting* Glucose Interpretive C riteria [...] of Diabetes Mellitus, Position Statement from the [employer]eless Diabetes [employer]. ??Diabete s Care, Volume 33, Supplement 1, Jul 2009 BUN 13 10 - 20 mg/dL [facility] Creatinine 0.90 0.80 - 1.50 mg/dL [facility] Sodium 135 135 - 145 [...] of body mass or the acutely ill. http://My [employer] Database/[facility] eGFR 98 >=60 mL/min/1.73 m?? [facility] Comment: The eGFR was calculated using the CKD-EP I equation. As with all creatinine based estimates of kidney function, eGFR values calculated with the CKD-EPI equation are not accurate in patients wi th acute kidney failure, extremes of body mass or the acutely ill. http://[employer]/[facility] [place] Specimen Anatomical Collection Method Collection Time Receive d Time (Source) Location / / Volume Laterality Blood specimen 11/30/2019 2:15 AM 020 2:29 (specimen) EDT AM EDT Resulting Agency Comment Spec In Lab Gretchen Yoon MD CHEMISTRY ORDERABLES Performing Organization Address City/State/[place] [address] (ABNORMAL) Hemogram (11/30/2019 2:15 AM EDT) Analysis Performed At Patho logist Time Signature WBC 11.2 (H) 4.0 - 9.5 [facility] x10(3)/[facility] LABORATORY RBC 3.83 (L) 4.58 - [facility] 5.54 [facility] x10(6)/[facility] LABORATORY Hemoglobin 11.4 (L) 13.7 - [place] DOV 16.5 gm/dL [facility] Hematocrit 35.2 (L) 40.5 - [place] 48.5 % [facility] MCV 91.9 82.9 - [place] MARSHDOV 93.1 [facility] LABORATORY MCH 29.8 27.5 - [place] MARSHDOV 32.1 pg [facility] LAB[facility] MCHC 32.4 32.0 - [place] MARSHDOV 35.7 gm/dL [facility] Platelets 122 (L) 145 - 357 [place] DOV x10(3)/[facility] LABORATORY RDWSD 49.8 (H) 36.0 - [place] MARSHDOV 45.0 [facility] LABORATORY RDWCV 14.8 (H) 11.4 - [place] DOV 13.8 % [facility]ORY MPV 12.1 7.6 - 12.9 [facility] LABORATORY nRBC % Auto 0.0 % [facility] nRBC Abs Auto 0.000 0.000 - [place] DOV 0.000 [facility] x10(3)/[facility] LABORATORY Specimen Anatomical Collection Method Collection Time Receive d Time (Source) Location / / Volume Laterality Blood specimen 11/30/2019 2:15 AM 020 2:29 (specimen) EDT AM EDT Resulting Agency Comment Spec In Lab Gretchen Yoon MD HEMATOLOGY ORDERABLES Performing Organization Address City/[facility]/ZIP Code Phon e Number [address] (ABNORMAL) CK (11/30/2019 2:15 AM EDT) athologist Signature CK, Total 1,969 (H) 0 - 200 [facility] DOV unit/L [facility] Specimen Anatomical Collection Method Collection Time Receive d Time (Source) Location / / Volume Laterality Blood specimen 11/30/2019 2:15 AM 020 2:29 (specimen) EDT AM EDT Resulting Agency Comment Spec In Lab Gretchen Yoon MD CHEMISTRY ORDERABLES Performing Organization Address City/State/ZIP Code Phon e Number [address] (ABNORMAL) Troponin (11/30/2019 2:15 AM EDT) athologist Signature Troponin-T 11.73 (H) 0.00 - [place] MONAE 0.00 ng/mL [facility] Comment: result rechecked-slw The 99th percentile [...] additional sample may be indicated. Reference: [place] Definition of Myocardial Infarction. Journal of the [employer]eless College of Cardiology 2012;60:1581-98 result rechecked- The [...] additional sample may be indicated. Reference: [place] Definition of Myocardial Infarction. Journal of the [employer]eless College of Cardiology 2012;60:1581-98 Corrected from 11.73 ng/ml [HI] on 11/29 3:11:51 EDT by Debi Hawley Specimen Anatomical Collection Method Collection Time Receive d Time (Source) Location / / Volume Laterality Blood specimen 11/30/2019 2:15 AM 020 2:29 (specimen) EDT AM EDT Resulting Agency Comment Spec In Lab Gretchen Yoon MD CHEMISTRY ORDERABLES Performing Organization Address City/[facility]/[place] [address] LDL Cholesterol, Direct (11/30/2019 2:15 AM EDT) P athologist Signature LDL Chol 156 mg/dL [facility] LABORATORY Comment: Lowest Risk: <100 mg/dL Lower Risk: 100-129 mg/dL Borderline High Risk: 130-159 mg/dL High Risk: 160-189 mg/dL Very High Risk: >qe=316 mg/dL Specimen Anatomical Collection Method Collection Time Receive d Time (Source) Location / / Volume Laterality Blood specimen 11/30/2019 2:15 AM 020 2:29 (specimen) EDT AM EDT Resulting Agency Comment Spec In Lab Gretchen Yoon MD CHEMISTRY ORDERABLES Performing Organization Address City/[facility]/[place] [address] (ABNORMAL) Hemoglobin A1c (11/30/2019 2:15 AM EDT) Analysis Performed At Patho logist Time Signature Hemoglobin A1C 6.3 (H) 4.3 - 5.6 [facility] Comment: Reference Range: 4.3 [...] Mellitus, Diabetes Care 2013; 36: Suppl. 1, S67-40 Est Avg Gluc See note mg/dL [place] MONAE [facility] Comment: Estimated Average Glucose [...] with hemoglobinopathies. Additional resources are available on [facility] ADA website. Kiko CARBAJAL, Jenn J, Silas R, et al. ??Tr anslating the A1C assay into estimated average glucose values. ??Diabetes Care 2008:31(8):9173-8747. Specimen Anatomical Collection Method Collection Time Receive d Time (Source) Location / / Volume Laterality Blood specimen 11/30/2019 2:15 AM 020 2:29 (specimen) EDT AM EDT Resulting Agency Comment Spec In Lab Gretchen Yoon MD CHEMISTRY ORDERABLES Performing Organization Address City/State/[place] [address] Lipid Panel (Reflex Direct LDL) (11/30/2019 2:15 AM EDT) P athologist Signature Chol, Total 195 mg/dL [facility] Comment: Lower Risk: <200 mg/dL Average Risk: 200-239 mg/dL Higher Risk: >sy=576 mg/dL Triglycerides 93 mg/dL [facility] Comment: Average Risk/Lower Risk: <150 mg/dL Borderline High Risk: 150-199 mg/dL High Risk: 200-499 mg/dL Very High Risk: >um=059 mg/dL HDL 32 mg/dL [facility] Comment: Males: ?? Higher Risk: <40 mg/dL Females: ?? HIgher Risk: <50 mg/dL LDL Cholesterol 144 mg/dL [facility] Comment: Lowest Risk: <100 mg/dL Lower Risk: 100-129 mg/dL Borderline High Risk: 130-159 mg/dL High Risk: 160-189 mg/dL Very High Risk: >rc=276 mg/dL Chol/HDL Ratio 6.1 ratio [facility] Lipid Interpretation See Note [facility] Comment: Lipid management should be guided by a p atient? s ASCVD risk, goals and preferences. ACC/AHA Guidelines recommend high intens ity statin if clinical ASCVD or LDL greater than or equal to 190 mg/dL. http://[employer]/ZMU-BPH-Oxjwgsxsx Adults aged 40-75 with LDL 70-189 mg/dL should have their 10 year ASCVD risk estimated with the ACC/AHA ASCVD risk es timator http://tools.acc.org/QEPDN-Xryc-Grelgium r/ Statin should be discussed if risk [...] Organization Address City/State/ZIP Code Phon e Number [address] (ABNORMAL) CK (11/29/2019 6:35 PM EDT) athologist Signature CK, Total 2,780 (H) 0 - 200 [facility] unit/L [facility] Specimen Anatomical Collection Method Collection Time Receive d Time (Source) Location / / Volume Laterality Blood specimen 11/29/2019 6:35 PM 020 6:53 (specimen) EDT PM EDT Resulting Agency Comment Spec In Lab Gretchen Yoon MD CHEMISTRY ORDERABLES Performing Organization Address City/[facility]/[place] [address] (ABNORMAL) Troponin (11/29/2019 6:35 PM EDT) athologist Signature Troponin-T 17.60 (H) 0.00 - [facility] 0.00 ng/mL [facility] Comment: result rechecked-az The 99th percentile [...] additional sample may be indicated. Reference: [place] Definition of Myocardial Infarction. Journal of the Stateless College of Cardiology 2012;60:1581-98 Specimen Anatomical Collection Method Collection Time Receive d Time (Source) Location / / Volume Laterality Blood specimen 11/29/2019 6:35 PM 020 6:53 (specimen) EDT PM EDT Resulting Agency Comment Spec In Lab Gretchen Yoon MD CHEMISTRY ORDERABLES Performing Organization Address City/State/[place] [address] EKG 12 Lead (11/29/2019 3:58 PM EDT) [facility] gist Method Time Signature Ventricular rate 73 BPM MUSE SYSTEM Atrial Rate 73 BPM MUSE SYSTEM P-R Interval 152 ms MUSE SYSTEM QRS Duration 84 ms MUSE SYSTEM Q-T Interval 404 ms MUSE SYSTEM QTC Calculated 445 ms MUSE SYSTEM (Bezet) Calculated P [place] 50 degrees MUSE SYSTEM Calculated R [place] -4 degrees MUSE SYSTEM Calculated T [place] 19 degrees MUSE SYSTEM INTERPRETATION Sinus rhythm [...] please contact th e number below. ? --------ORIGINAL REPORT -------- EXAMINATION: XR CHEST ONE VIEW CLINICAL HISTORY: stemi (as entered by o ering provider in the order requisition) TECHNIQUE: Portable [...] lung apex is excluded from the imaged drrro-zz-jxil. IMPRESSION: 1. ??New right internal jugular pulmonar [...] lung apex is excluded from the imaged hutsl-uu-ciag. Procedure Note Estefani Harris MD - 11/29/2019Formattin [...] lung apex is excluded from the imaged [id number]. IMPRESSION 1. New right internal jugular pulmonary [...] (ABNORMAL) Differential, Automated (11/29/2019 2:32 PM EDT) [facility] Method Time Signature Neutrophils % 83.8 % [facility] Neutr Abs (ANC) 12.12 (H) 1.70 - [facility] 6.10 [facility] x10(3)/[facility] LABORATORY Lymphocytes % 9.1 % [facility] Lymphocytes Abs 1.3 0.9 - 3.2 [facility] x10(3)/[facility] LABORATORY Monocytes % 6.2 % [facility] Monocyte Abs 0.9 0.3 - 0.9 [facility] x10(3)/[facility] LABORATORY Eosinophils % 0.0 % [facility] Eosinophils Abs 0.0 0.0 - 0.4 [facility] x10(3)/[facility] LABORATORY Basophils % 0.3 % [facility] Basophils Abs 0.0 0.0 - 0.1 [facility] x10(3)/[facility] LABORATORY Immature Gran % 0.60 % [facility] Comment: Immature granulocytes(IG's)percentage an d absolute count will include metamyelocytes, myelocytes, and promyelo cytes. Blood smears from CBCs yielding IG's will be scanned manually for concmoises dandirk. If this scan disagrees with the automated IG or if promyelocytes are not ed, a manual differential will be performed. Pita Gran Abs 0.08 (H) 0.00 - 0.04 x10(3)/[facility] LABORATORY Specimen Anatomical Collection Method Collection Time Receive d Time (Source) Location / / Volume Laterality Blood specimen 11/29/2019 2:32 PM 020 2:55 (specimen) EDT PM EDT Resulting Agency Comment Spec In Lab Darrell Glasgow MD HEMATOLOGY ORDERABLES Performing Organization Address City/State/[place] [address] (ABNORMAL) Hemogram (11/29/2019 2:32 PM EDT) Analysis Performed At Patho logist Time Signature WBC 14.5 (H) 4.0 - 9.5 [facility] x10(3)/[facility] LABORATORY RBC 4.53 (L) 4.58 - [facility] 5.[facility] x10(6)/[facility] LABORATORY Hemoglobin 13.1 (L) 13.7 - [facility] 16.5 gm/dL [facility]ORY Hematocrit 40.8 40.5 - [facility] 48.5 % [facility] LAB[facility]ORY MCV 90.1 82.9 - [facility] 93.1 [facility] LABORATORY MCH 28.9 27.5 - [facility] DOV 32.1 pg [facility] LABORATORY MCHC 32.1 32.0 - [facility] 35.7 gm/dL [facility] LAB[facility]ORY Platelets 184 145 - 357 [facility] x10(3)/[facility] LABORATORY RDWSD 47.8 (H) 36.0 - [facility] 45.0 [facility] LABORATORY RDWCV 14.5 (H) 11.4 - [facility] DOV 13.8 % [facility] LABORATORY MPV 11.9 7.6 - 12.9 [facility] LABORATORY nRBC % Auto 0.0 % [facility] nRBC Abs Auto 0.000 0.000 - [facility] 0.000 [facility] x10(3)/[facility] LABORATORY Specimen Anatomical Collection Method Collection Time Receive d Time (Source) Location / / Volume Laterality Blood specimen 11/29/2019 2:32 PM 020 2:55 (specimen) EDT PM EDT Resulting Agency Comment Spec In Lab Darrell Glasgow MD HEMATOLOGY ORDERABLES Performing Organization Address City/[facility]/ZIP Code Phon e Number [address] (ABNORMAL) CK (11/29/2019 2:32 PM EDT) athologist Signature CK, Total 3,282 (H) 0 - 200 [facility] unit/[facility] LABORATORY Specimen Anatomical Collection Method Collection Time Receive d Time (Source) Location / / Volume Laterality Blood specimen 11/29/2019 2:32 PM 020 2:32 (specimen) EDT PM EDT Resulting Agency Comment Spec In Lab Gretchen Yoon MD CHEMISTRY ORDERABLES Performing Organization Address City/[facility]/[place] [address] (ABNORMAL) Troponin (11/29/2019 2:32 PM EDT) athologist Signature Troponin-T 20.33 (H) 0.00 - [facility] 0.00 ng/mL [facility] Comment: The 99th percentile for Troponin [...] additional sample may be indicated. Reference: [place] Definition of Myocardial Infarction. Journal of the Stateless College of Cardiology 2012;60:1581-98 Specimen Anatomical Collection Method Collection Time Receive d Time (Source) Location / / Volume Laterality Blood specimen 11/29/2019 2:32 PM 020 2:32 (specimen) EDT PM EDT Resulting Agency Comment Spec In Lab Gretchen Yoon MD CHEMISTRY ORDERABLES Performing Organization Address City/[facility] [place] [address] (ABNORMAL) APTT (11/29/2019 2:32 PM EDT) athologist Signature PTT 114 25 - 37 [facility] (Critical) [facility] LABORATORY Comment: Critical Result called by ?? [...] Yoon MD HEMATOLOGY ORDERABLES Performing Organization Address City/[facility] [place] [address] (ABNORMAL) Prothrombin Time (11/29/2019 2:32 PM EDT) P athologist Signature PT 13.5 (H) 9.4 - 12.5 [facility] LABORATORY INR 1.2 [facility] Yoon MD HEMATOLOGY ORDERABLES Performing Organization Address City/[facility]/[place] [address] (ABNORMAL) Hepatic Function Panel (11/29/2019 2:32 PM EDT) P athologist Signature Total Protein 6.3 6.1 - 8.0 [facility] DOV gm/dL [facility] LABORATORY Albumin 3.6 3.2 - 5.2 [place] DOV gm/dL [facility] LABORATORY AST 257 (H) 0 - 39 [place] DOV unit/L [facility] LAB[facility]ORY ALT 50 0 - 55 [place] DOV unit/L [facility]ORY Alk Phos 84 40 - 130 [place] DOV unit/L [facility] LAB[facility]ATORY Total 0.3 0.2 - 1.3 [facility] Bilirubin mg/dL [facility] LAB[facility]ATORY Bili, Direct 0.1 0.0 - 0.3 [place] DOV mg/dL [facility] LAB[facility]ORY Specimen Anatomical Collection Method Collection Time Receive d Time (Source) Location / / Volume Laterality Blood specimen 11/29/2019 2:32 PM 020 2:32 (specimen) EDT PM EDT Resulting Agency Comment Spec In Lab Gretchen Yoon MD CHEMISTRY ORDERABLES Performing Organization Address City/[facility]/[place] [address] (ABNORMAL) pro-Brain Natriuretic Peptide (11/29/2019 2:32 PM EDT) P athologist Signature ProBNP 272 (H) <=125 pg/mL [facility] Specimen Anatomical Collection Method Collection Time Receive d Time (Source) Location / / Volume Laterality Blood specimen 11/29/2019 2:32 PM 020 2:32 (specimen) EDT PM EDT Resulting Agency Comment Spec In Lab Gretchen Yoon MD CHEMISTRY ORDERABLES Performing Organization Address City/[facility]/ZIP Code Phon e Number [address] Magnesium (11/29/2019 2:32 PM EDT) athologist Signature Magnesium 0.76 0.69 - 1.07 [facility] mmol/L [facility] LAB[facility]ORY Specimen Anatomical Collection Method Collection Time Receive d Time (Source) Location / / Volume Laterality Blood specimen 11/29/2019 2:32 PM 020 2:32 (specimen) EDT PM EDT Resulting Agency Comment Spec In Lab Gretchen Yoon MD CHEMISTRY ORDERABLES Performing Organization Address City/[facility] Phon e Number [address] (ABNORMAL) Basic Metabolic Panel (non-fasting) (11/29/2019 2:32 PM EDT) athologist Signature Glucose Lvl 149 65 - 199 [facility] mg/dL [facility] LAB[facility]ORY Comment: Diabetes: >=200 mg/dL plus symp toms BUN 16 10 - 20 mg/dL [facility] LABORATORY Creatinine 0.94 0.80 - 1.50 mg/dL [facility] Sodium 135 135 - 145 [...] of body mass or the acutely ill. http://[employer]/[facility] eGFR 93 >=60 mL/min/1.73 m?? [facility] Comment: The eGFR was calculated using the CKD-EP I equation. As with all creatinine based estimates of kidney function, eGFR values calculated with the CKD-EPI equation are not accurate in patients wi th acute kidney failure, extremes of body mass or the acutely ill. http://[employer]/[facility] Specimen Anatomical Collection Method Collection Time Receive d Time (Source) Location / / Volume Laterality Blood specimen 11/29/2019 2:32 PM 020 2:32 (specimen) EDT PM EDT Resulting Agency Comment Spec In Lab Gretchen Yoon MD CHEMISTRY ORDERABLES Performing Organization Address City/State/[place] [address] EKG 12 Lead (11/29/2019 11:38 AM EDT) [facility] gist Method Time Signature Ventricular rate 60 BPM MUSE SYSTEM Atrial Rate 60 BPM MUSE SYSTEM P-R Interval 140 ms MUSE SYSTEM QRS Duration 86 ms MUSE SYSTEM Q-T Interval 474 ms MUSE SYSTEM QTC Calculated 474 ms MUSE SYSTEM (Bezet) Calculated P [place] 48 degrees MUSE SYSTEM Calculated R [place] 14 degrees MUSE SYSTEM Calculated T [place] 58 degrees MUSE SYSTEM INTERPRETATION Normal sinus [...] rization/Intervention Report ? Patient Name: Angel Luis aSlinas. ? Procedure Date: 11/29/2019 ? A #: [id number] ? Primary Physician: Gretchen Yoon ? Case #: [id number] ? File Name: [id number] ? Catheterization Order Number: [id number] ? [facility] ? Final Report [place], [place] ? Patient Name: ? Angel Luis Salinas ? ID#: ?[id number] ? : ?1945 ? Procedure Date: ? [...] was Emergent. The indication for ?the catheter finisher and inspector visit is ACS less than or equal [...] administered prior to arrival in the catheter finisher and inspector. ?Recommended anti-platelet/anti- thrombotic regimen: ?Continue aspirin 81 mg daily fo r indefinitely. ?Continue clopidogrel 75 mg marco a y for 12 months then stop. ?These recommendations are made at the time of the intervention. Patient ?and provider preferences or a c hanging clinical situation may require ?modification of this regimen. C onsult [facility] Interventional Cardiology [...] Luis Salinas Procedure Date: 11/29/2019 A #: [id number] Primary Physician: Gretchen Yoon Case #: [id number] File Name: [id number] Catheterization Order Number: [id number] [facility] Final Report [place], [place] Patient Name: Angel Luis Salinas ID#: [id number] : 1945 Procedure Date: November 29, [...] was designated as ASA Class IV. The [facility] clinical frailty scale is 4: Vulnerable. Diagnostic Tests: Electrocardiography: EKG was assessed by ECG. EKG was Abnorm al. EKG showed ST Deviation >= 0.5 mm. Medications Prior to Procedure: Aspirin. Indications for Diagnostic Cath: The priority of the diagnostic procedur e was Emergent. The indication for the catheter finisher and inspector visit is ACS less than or equal [...] A premounted 3.50 x 26 mm Resolute MEDNEZ (MACARIO) was deployed wit h a maximum [...] prior t o arrival in the catheter finisher and inspector. Recommended anti-platelet/anti-thrombot ic regimen: Continue aspirin 81 mg daily for indefi nitely. Continue clopidogrel 75 mg daily for 12 months then stop. These recommendations are made at the t loyda of the intervention. Patient and provider preferences or a changing clinical situation may require modification of this regimen. Consult D [facility] Interventional Cardiology for questions. [...] Blood Gas Historical (11/29/2019 9:17 AM EDT) [facility] gist Method Time Signature POC pH 7.33 (L) 7.35 - [facility] 7.45 [facility] LABORATORY POC PCO2 33 (L) 35 - 45 [facility] mmHg [facility] LABORATORY POC PO2 56 (L) 85 - 104 [facility] LABORATORY POC Base Excess -8.0 (L) -3.0 - 3.0 [facility] K mmol/L [facility] LABORATORY POC HCO3 17.4 (L) 20.0 - [facility] 26.0 [facility] POC Sodium 137 135 - 145 [facility] mmol/L [facility] POC Potassium 3.6 3.5 - 5.0 [facility] mmol/L [facility] LABORATORY POC Ionized Ca 1.15 1.15 - [facility] 1.33 [facility] POC Hematocrit 37.0 (L) 40.0 - [facility] 51.0 % [facility] LAB[facility]ORY POC Calc Hgb 12.6 (L) 13.7 - [facility] 17.5 gm/dL [facility] LAB[facility]ATORY Comment: The calculation of hemoglobin f rom hematocrit assumes a normal MCHC. POC Bgas Loc CC LAB [facility] LABORATORY Specimen Anatomical Collection Method Collection Time Receive d Time (Source) Location / / Volume Laterality Blood specimen 11/29/2019 9:17 AM 020 7:35 (specimen) EDT AM EDT Gretchen Yoon MD CHEMISTRY ORDERABLES Performing Organization Address City/State/[place] [address] EKG 12 Lead (11/29/2019 9:01 AM EDT) Component Value Ref Range Test Analysis Performed Pathologis t Method Time At Signature Ventricular rate 80 BPM MUSE SYSTEM Atrial Rate 79 BPM MUSE SYSTEM QRS Duration 94 ms MUSE SYSTEM Q-T Interval 436 ms MUSE SYSTEM QTC Calculated 502 ms MUSE SYSTEM (Bezet) Calculated R [place] 54 degrees MUSE SYSTEM Calculated T [place] 80 degrees MUSE SYSTEM INTERPRETATION Normal sinus [...] RN) 150 mg, Intravenous, ONCE, 1 dose, [place] at 1315, Warning Vesicant/Irritant Medication , Routine [...] ONCE, 1 dose, 12/06/19 at 0515, Ad fingernail sculpturer over 120 Minutes magnesium sulfate 2 g [...] Bentley, RN) 0-8,000 Units, Intravenous, BOLUS PER BELÉN [...]
Routine documented in this encounter Care Teams Supervisor Advice Relationship Specialty Start Date End Date France Lam MD PCP - General 05/02/13 02/04/20 [address] [place] [address] documented as of this encounter
--- OUTSIDE RECORDS SUMMARY | 2022-05-23 11:09 | XMS_ITS | Encounter Summary ---
:1945 Author Organization [facility] Address [place] [address] Care Team Providers Name Role Phone France Lam MD Primary Care Provider Reason for Visit Reason Comments Claudication Encounter Details Date Type Department Care Team Description 05/13/2013 Office Visit Vascular Surgery at David Sim from [facility] MD Bobby peripheral vascular [facility] dis ease, left (Primary Drive DR Tenn[place]) [place], [place] VASCULAR SURGERY [address] [place] [address] [phone] Social History Tobacco Use Types Packs/Day Years [...] 06/30/2022 Office Visit Endocrinology Alan Terrell MD [facility] ENDOCRINOLOGY [place], [place] [address] (Wo rk) documented as of this encounter Visit Diagnoses Diagnosis Claudication from peripheral vascular di sease, left - Primary Peripheral vascular disease, unspecified documented in this encounter Care Teams Yard Manager Relationship Specialty Start Date End Date France Lam MD PCP - General 05/02/13 02/04/20 [address] [place] [address] documented as of this encounter
--- OUTSIDE RECORDS SUMMARY | 2022-05-23 11:09 | XMS_ITS | Encounter Summary ---
:1945 Author Organization [facility] [place] [address] Care Team Providers Name Role Phone France Lam MD Primary Care Provider Encounter Details Date Type Department Care Team Description 05/13/2013 Orders Only Vascular Surgery at Anabella Sanchez PVD [facility] hide inspector disease) [facility] (Primary Dx) [place] [address] Social History Tobacco Use Types Packs/Day [...] Terrell MD [facility] ER DR ENDOCRINOLOGY [place], [place] [address] (Wo rk) documented as of this encounter Visit Diagnoses Diagnosis PVD (peripheral vascular disease) - Prim kayy Peripheral vascular disease, unspecified documented in this encounter Care Teams Patient Relations Specialist Relationship Specialty Start Date End Date France Lam MD PCP - General 05/02/13 02/04/20 [address] [place], [place] [address] documented as of this encounter
--- OUTSIDE RECORDS SUMMARY | 2022-05-23 11:09 | XMS_ITS | Encounter Summary ---
:1945 Author Organization [facility] [place] [address] Care Team Providers Name Role Phone France Lam MD Primary Care Provider Encounter Details Date Type Department Care Team Description 05/13/2013 Ancillary Vascular Surgery at Claritza Hall (Primary Appointment [facility] Cesilia Sebastian, ID Dx) [place] [address] Social History Tobacco Use Types Packs/Day Years Used Date Smoking Tobacco: Every Day Cigarettes 0.5 Cigars Sex Assigned at Date Recorded Not on file documented as of this encounter Plan of Treatment Upcoming Encounters Date Type Specialty Care Team Description 06/30/2022 Office Visit Endocrinology Alan Terrell MD [facility] ENDOCRINOLOGY [place], [place] [address] (Wo rk) documented as of this encounter Procedures Procedure Name Priority Date/Time Associated Diagnosis Comme nts IGNACIO, LEGS, MULTIPLE Routine 05/13/2013 8:34 AM Calf pain Re sults for this LEVELS EST procedure are i n the results section. documented in this encounter Results IGNACIO, legs, multiple levels (05/13/2013 8:34 AM EST) Component Value Ref Test Analysis Performed At [facility] Range Method Time Signature VB Text VASCUBASE Report Department: Vascular Surgery Lab Patient: [id number] (ANGEL LUIS HI) CPT Code: 84060 ICD-9: 440.21 Referring Physician: FRANCE LAM Indication: [...] Posterior Tibial (Ankle) Art derrell ??84 ?0.64 ??[place]- Biphasic ?? Interpretation: RIGHT: ??Mild lower extremity [...] limb documented in this encounter Care Teams Deputy District Customs Director Relationship Specialty Start Date End Date France Lam MD PCP - General 05/02/13 02/04/20 [address] [place] [address] documented as of this encounter
--- OUTSIDE RECORDS SUMMARY | 2022-05-23 11:09 | XMS_ITS | Encounter Summary ---
:1945 [place] [address] Care Team Providers Name Role Phone France Lam MD Primary Care Provider Encounter Details Date Type Department Care Team Description 11/29/2019 Telephone Cardiovascular [facility] Silvio piedra MD [facility] Devin [place] [address] [place] [address] [phone] (Wo rk) Social History Tobacco Use Types [...] EKG: Inferior STEMI Silvio Real MD Patient Registrar PGY-4 11/29/2019 documented in this encounter Plan of Treatment Upcoming Encounters Date Type Specialty Care Team Description 06/30/2022 Office Visit Endocrinology Echt, Alan Beatty MD [facility] ENDOCRINOLOGY [place], [place] [address] (Wo rk) documented as of this encounter Visit Diagnoses Not on filedocumented in this encounter Care Teams Etl Informatica Architect Relationship Specialty Start Date End Date France Lam MD PCP - General 05/02/13 02/04/20 [address] [place] [address] documented as of this encounter
--- OUTSIDE RECORDS SUMMARY | 2022-05-30 11:01 | XMS_ITS | Encounter Summary ---
:1945 Author Organization [facility] [place] [address] Care Team Providers Name Role Phone Jovany Lott MD Primary Care Provider Reason for Visit Reason Onset Date Comments Follow-up 06/15/2020 Tobacco Treatment Encounter Details Date Type Department Care Team Description 06/15/2020 Telephone Vascular Surgery at Ryan Tran low-up (Tobacco [facility] Sukumar, RN Treatment) [place] [address] Social History Tobacco Use Types Packs/Day [...] updated. Ryan Tran, MSN, RN-BC, NCTTP Tobacco Residential Sales [facility] Pager #[phone] documented in this encounter Plan of Treatment Upcoming Encounters Date Type Specialty Care Team Description 06/30/2022 Office Visit Endocrinology Alan Terrell MD [facility] ENDOCRINOLOGY [place] [phone] (Wo rk) documented as of this encounter Visit Diagnoses Not on filedocumented in this encounter Care Teams Senior Materials Planner Relationship Specialty Start Date End Date Jovany Lott MD PCP - General Family Medicine 02/05/20 [address] [place] [address] documented as of this encounter
--- OUTSIDE RECORDS SUMMARY | 2022-05-30 11:01 | XMS_ITS | Encounter Summary ---
:1945 Author Organization [facility] Address [address] [place] [address] Care Team Providers Name Role Phone Unavailable Primary Care Provider Unavailable Encounter Details Date Type Department Care Team Description 09/02/2003 Results Only [facility] Patel MD conversion [address] [facility] [address] [place], [place] [address] [place] [address] (Wo rk) Social History Tobacco Use Types [...] Value Ref Test Analysis Performed At [facility] Method Time Signature Pathology SURGICAL PATHOLOGY REPORT ZAYNAB MARINELLI Report: Reports generated via electronic interface contain catherinea l data; MARLI MENDOZA however they are lacking the format of the original report. Caution should be taken when reading/interpreting unformatte d reports. Name: ? ANGEL LUIS SALINAS ? Accession #: ? [id number] ? : ? 1945 (Age: 58) ??M [...] of the lesion is recommended. ??(Dr. Jaz weller)/[facility] Microscopic Description: ? The epidermis is hype [...] and cords of similar melanocytes that show control manager maturation with descent. 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 ??(Dr. Mascorro)/[facility] Document reviewed and electronically signed by: Mai [...] entirely submitted in one cassette. ??(Dr. Alejandro jacobsen)/[facility] End of Report Specimen (Source) Anatomical Collection Method Collection Time Re ceived Time Location / / Volume Laterality 09/02/2003 09/03/2003 15:2 7 EST Otis Moss MD PATHOLOGY ORDERABLES Performing Organization Address City/State/ZIP Code Phon e Number [facility] [address] [place] [address] SERVICES [facility] [address] [place] [phone] documented in this encounter Visit Diagnoses Not on filedocumented in this encounter
--- OUTSIDE RECORDS SUMMARY | 2022-05-30 11:01 | XMS_ITS | Encounter Summary ---
:1945 Author Organization [facility] Address [facility] [place] [address] Care Team Providers Name Role Phone Jovany Lott MD Primary Care Provider Encounter Details Date Type Department Care Team Description 08/31/2020 TH Visit Cardiology [place] [facility] Faustino Garduno Atrial fibrillation, unspeci fied type (Primary Dx); (TeleHealth) [facility] MD Jaquan Acute ST elevation myocardial infarction (STEMI) of inferior wall; Drive [facility] Acute systolic CHF (congesti ve heart failure), NYHA class 3, MILVIA/AHA stage C; [place], [place] Center Hyperlipidemia, unspecified hyperlipidem ia type; [address] [place], [place] Intracranial hemorrhage; [phone] PFO (patent foramen ovale); [phone] Claudication fr om peripheral vascular disease, left [...] with ICH, bilateral PE; paroxysmal atrial fibrillation [[id number]: 5]; PAD; HLD; HTN; smoking and PFO,who [...] appointment with Dr. Faustino Chou at the [facility]. However, he has not grossly noted [...] a non-culprit artery. S/P DESx3 in the mesewjdi-jf-yivnoj RCA. Aspiration thrombectomy performed, and integrellin bolus [...] with ICH, bilateral PE; paroxysmal atrial fibrillation [[id number]: 5]; PAD; HLD; HTN; smoking and PFO, [...] Will also discuss further with his local vacuum cooker operator, Dr. Mejia. 3. Bilateral PE - Case discussed with Dr. Sanchez above; likely provoked in lieu of his prolonged hospitalization. He has completed at least 6 months of oral A/C (coinciding treatment for his afib). 4. PAD - Continue optimal medical therapy for now. Will place referral for SET/walking program. F/U 3 months Faustino Garduno MD Time spent: 35 minutes Addendum 09/13/20: Called [phone] or [phone] and was able to speak to Dr. Faustino Chou. Pt also sees Dr. Lott in [facility] for local primary care needs. Dr. 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 5RBCs also noted on urinanalysis that subsequently cleared on repeat testing. documented in this encounter Plan of Treatment Upcoming Encounters Date Type Specialty Care Team Description 06/30/2022 Office Visit Endocrinology EchtAlan MD [facility] ENDOCRINOLOGY [place], [place] [address] (Wo rk) documented as of this encounter Visit Diagnoses Diagnosis Atrial fibrillation, unspecified type - Primary Acute ST elevation myocardial infarction (STEMI) of inferior wall Acute systolic CHF (congestive heart reid lure), NYHA class 3, MLIVIA/AHA stage C Acute systolic heart failure Hyperlipidemia, unspecified hyperlipidem ia type Intracranial hemorrhage Unspecified intracranial hemorrhage PFO (patent foramen ovale) Ostium secundum type atrial septal defec t Claudication from peripheral vascular di sease, left Peripheral vascular disease, unspecified documented in this encounter Care Teams Airworthiness Inspector Relationship Specialty Start Date End Date Jovany Lott MD PCP - General Family Medicine 02/05/[address] [place] [address] [place] [address] documented as of this encounter
--- OUTSIDE RECORDS SUMMARY | 2022-05-30 11:01 | XMS_ITS | Encounter Summary ---
:1945 Author Organization [facility] [place] [address] Care Team Providers Name Role Phone France Lam MD Primary Care Provider Encounter Details Date Type Department Care Team Description 01/16/2020 Telephone Vascular Surgery at [facility] Ryan Tran, [place] [address] Social History Tobacco Use Types Packs/Day [...] fidelina. Ryan Tran, MSN, RN-, NCTTP Tobacco Hand Washer [facility] Pager #[phone] documented in this encounter Plan of Treatment Upcoming Encounters Date Type Specialty Care Team Description 06/30/2022 Office Visit Endocrinology EchtAlan MD [facility] ER DR [address]AR[address] [place], [place] [address] (Wo rk) documented as of this encounter Visit Diagnoses Not on filedocumented in this encounter Care Teams Peeled Potato Inspector Relationship Specialty Start Date End Date France Lam MD PCP - General 05/02/13 02/04/20 [address] [place] [address] documented as of this encounter
--- OUTSIDE RECORDS SUMMARY | 2022-05-30 11:01 | XMS_ITS | Encounter Summary ---
:1945 Author Organization [facility] [place] [address] Care Team Providers Name Role Phone France Lam MD Primary Care Provider Reason for Visit Reason Onset Date Comments TeleHealth 01/12/2020 Encounter Details Date Type Department Care Team Description 01/12/2020 Telephone Neurosurgery at [facility] Alfreda Salas, TeleHealth [facility] [place] [address] [facility] [phone] [place], [place] [address] (Wo rk) Social History Tobacco [...] Visit Endocrinology Alan Terrell MD [facility] ER ENDOCRINOLOGY [place], [place] [address] (Wo rk) documented as of this encounter Visit Diagnoses Not on filedocumented in this encounter Care Teams Jackaroo Relationship Specialty Start Date End Date France Lam MD PCP - General 05/02/13 02/04/20 [address] [place] [address] documented as of this encounter
--- OUTSIDE RECORDS SUMMARY | 2022-05-30 11:01 | XMS_ITS | Clinical Summary ---
:1945 Author Organization [place] [address] Care Team Providers Name Role Phone Jovany Lott MD Primary Care Provider Allergies Active Allergy Reactions Severity Noted Date Comments Penicillins 05/13/2013 Pt doesn't gely mber reaction Okuxboo-Arn-Kaz Reductase 05/13/2013 St iff neck, upset stomach, [...] Office Visit Endocrinology Echt, Alan Beatty MD [facility] DR ENDOCRINOLOGY [place], [place] [address] (Wo rk) Health Maintenance Due [...] Organization Address City/State/ZIP Code Phon e Number [place], [place] from Last 3 Months Insurance Payer Benefit Plan / Subscriber ID Effective Dates Phone Addre ss Type Group MEDICARE MEDICARE PART [id number] 2019-Prese [phone] JUAN MD JUST[place] [id number] [place] [id number] 2018-Presen [employer] [place] [id number] Advance Directives Latest Code Status on File [...] capacity to make decision: Yes Care Teams Academic Success Coordinator Relationship Specialty Start Date End Date Jovany Lott MD PCP - General Family Medicine 02/05/20 [address] [place] [phone]
--- OUTSIDE RECORDS SUMMARY | 2022-05-30 11:01 | XMS_ITS | Encounter Summary ---
:1945 Author Organization [facility] Address [address] [place] [address] Care Team Providers Name Role Phone Jennifer Gomez [facility] Primary Care Provider Encounter Details Date Type Department Care Team Description 03/19/2019 Results Only [facility] Angel Luis Lott MD [phone] [address] [place], [place] [phone] (Wo rk) Social History Tobacco Use Types [...] Component Value Ref Test Analysis Performed At [facility] Method Time Signature Pathology SURGICAL PATHOLOGY REPORT [facility] Report: Reports generated via electronic interface contain [facility] data; CENTER however they are lacking the format of the original report. LABORATORY Caution should be taken when reading/interpreting unformat pepper reports. SERVICES Name: ? ANGEL LUIS HI ? Accession #: ? [id number] ? : ? 1945 (Age: 8 3) [...] and entirely submitted in 1. ESTEFANY Brown ([facility]) 03/20/2019 5:33 PM End of Report Specimen Anatomical Collection Method Collection Time Receive d Time (Source) Location / / Volume Laterality 03/19/2019 16:47 03/20/2019 EDT 16:47 EDT Angel Luis Lott MD PATHOLOGY ORDERABLES Performing Organization Address City/State/ZIP Code Phon e Number [facility] [address] [place] [address] SERVICES documented in this encounter Visit Diagnoses Not on filedocumented in this encounter Care Teams Manager Business Process Relationship Specialty Start Date End Date Jennifer Gomez NP PCP - General 05/10/15 [facility] [address] [place] [address] documented as of this encounter
--- OUTSIDE RECORDS SUMMARY | 2022-05-30 11:01 | XMS_ITS | Encounter Summary ---
:1945 Author Organization [facility] [address] Care Team Providers Name Role Phone France Lam MD Primary Care Provider Reason for Visit Reason Onset Date Comments TeleHealth 12/22/2019 Appt 12/23/19 Encounter Details Date Type Department Care Team Description 12/22/2019 Telephone [place]surgery [place] [facility] Alfreda Salas TeleHealth (Appt [facility] Devin Sebastian, ENGINE SERVICE REPAIRER 12/23/19) [place] [address] [facility] [phone] [address] [place] [address] Social History Tobacco Use Types Packs/Day [...] Alan Terrell MD [facility] ER DR [place], [place] [address] (Wo rk) documented as of this encounter Visit Diagnoses Not on filedocumented in this encounter Care Teams Blood Bank Laboratory Technologist Relationship Specialty Start Date End Date France Lam MD PCP - General 05/02/13 02/04/20 [address] [place] [address] documented as of this encounter
--- OUTSIDE RECORDS SUMMARY | 2022-05-30 11:01 | XMS_ITS | Encounter Summary ---
:1945 Author Organization [facility] Address [address] [place] [address] Care Team Providers Name Role Phone Jennifer Gomez THERMAL MOLDER Primary Care Provider Encounter Details Date Type Department Care Team Description 09/07/2020 Lab Requisition [facility] Outr Resulting Lab, Pathology & Laboratory Provider [facility] [address] [place] [id number] Social History Tobacco Use Types Packs/Day Years [...] Address City/State/ZIP Code Phon e Number [facility] [address] [place] [address] SERVICES COVID-19 TESTING (09/07/2020 9:45 EST) Analysis Performed At Patho logist Time Signature COVID-19 Negative Negative 09/08/2020 [facility] rt-PCR Result 14:27 EST [...] and its performa nce characteristics determined by [facility]. It has not been cleared or [...] testing. This test is based on the [facility] COVID-19 E mergency Use Authorization (EUA) assay, with minor modification as defined by the FDA Performed on the WebThriftStore[employer] 7 Pro RT-PCR System. Performing Lab [facility] Lab 09/08/2020 14:27 EST [facility] SERVICES Specimen Anatomical Collection Method Collection Time Receive d Time (Source) Location / / Volume Laterality Swab 09/07/2020 9:45 09/07/2020 EST 20:56 EST Provider Outr Resulting Lab MICROBIOLOGY - GENERAL ORD ERABLES Performing Organization Address City/State/ZIP Code Phon e Number [facility] [address] [place] [address] SERVICES documented in this encounter Visit Diagnoses Not on filedocumented in this encounter Care Teams Captain Waiter/Waitress Relationship Specialty Start Date End Date Jennifer Gomez NP PCP - General 05/10/15 [facility] [address] [place] [address] documented as of this encounter
--- OUTSIDE RECORDS SUMMARY | 2022-05-30 11:01 | XMS_ITS | Encounter Summary ---
:1945 Author Organization [facility] Address [facility] [place] [address] Care Team Providers Name Role Phone France Lam MD Primary Care Provider Encounter Details Date Type Department Care Team Description 12/22/2019 Telephone Cardiology Riki Stevens, [facility] [place] [address] [facility] [phone] GENERAL INTERNAL MEDICINE [place] [address] (Wo rk) Social History Tobacco Use Types [...] Description 06/30/2022 Office Visit Endocrinology EchtAlan MD [facility] ER DR [address]LEN[address] [place], [place] [address] (Wo rk) documented as of this encounter Visit Diagnoses Not on filedocumented in this encounter Care Teams Director Of Group Sales Relationship Specialty Start Date End Date France Lam MD PCP - General 05/02/13 02/04/20 [address] [place] [address] documented as of this encounter
--- OUTSIDE RECORDS SUMMARY | 2022-05-30 11:01 | XMS_ITS | Encounter Summary ---
:1945 Author Organization [facility] [place] [address] Care Team Providers Name Role Phone Jovany Lott MD Primary Care Provider Encounter Details Date Type Department Care Team Description 11/10/2020 Telephone Cardiology [place] [facility] Wilver Davey [facility] [place] [address] Social History Tobacco Use Types Packs/Day [...] 06/30/2022 Office Visit Endocrinology Alan Terrell MD [facility] ER ENDOCRINOLOGY [place], [place] [address] (Wo rk) documented as of this encounter Visit Diagnoses Not on filedocumented in this encounter Care Teams Automotive Engineering Technician Relationship Specialty Start Date End Date Jovany Lott MD PCP - General Family Medicine 02/05/20 [place] [address] documented as of this encounter
--- OUTSIDE RECORDS SUMMARY | 2022-05-30 11:01 | XMS_ITS | Encounter Summary ---
:1945 Author Organization [facility] [place] [address] Care Team Providers Name Role Phone France Lam MD Primary Care Provider Encounter Details Date Type Department Care Team Description 12/23/2019 TH Visit Neurosurgery at [facility] Alfreda Salas Intracranial (TeleHealth) [facility] C, DATA [place]MIN[place] [address] [phone] [place] [address] Social History Tobacco Use Types Packs/Day Years Used Date Smoking Tobacco: Every Day Cigarettes 0.5 Cigars Sex Assigned at Date Recorded Not on file documented as of this encounter Progress Notes Alfreda Salas, DATA ADMINISTRATOR - 12/23/2019 1:30 PM EDT Images [...] [address] up [address] at [facility], showing slight decrease in size and [...] 3-4 weeks which may be done at [facility] with follow up TOV [facility]. Head CT 12/18/19 Assessment and Plan [...] Office Visit Endocrinology Alan Terrell MD [facility] ER ENDOCRINOLOGY [place], [place] [address] (Wo rk) documented as of this encounter Visit Diagnoses Diagnosis Intracranial hemorrhage Unspecified intracranial hemorrhage documented in this encounter Care Teams Collar Turner Operator Relationship Specialty Start Date End Date France Lam MD PCP - General 05/02/13 02/04/20 [address] [place] [address] documented as of this encounter
--- OUTSIDE RECORDS SUMMARY | 2022-05-30 11:01 | XMS_ITS | Encounter Summary ---
:1945 Author Organization [facility] [place] [address] Care Team Providers Name Role Phone Jovany Lott MD Primary Care Provider Reason for Visit Consultation (Routine) - Closed Specialty Diagnoses / Procedures Referred By Contact Refer red To Contact Cardiology Diagnoses ST elevation (STEMI) myocardial infarction of unspecified site Hyperlipidemia, unspecified Dawit Mejia MD [place], [place] [address] [place] [address] [address] [place], [place] CARDIOLOGY D EPT [address] [place] [address] Fax: Referral ID Status Reason Start Date Expiration Date Visits V isits Requested Authorized [id number] Closed Consult, Test 02/10/2020 02/09/2021 [facility] PCP Updated and/or Approved Encounter Details Date Type Department Care Team Description 03/12/2020 TH Visit Cardiology at [facility] Melina Payan Fredrickson type IIa hyperli poproteinemia; (TeleHealth) [facility] Hyperglycemia; 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 [...] medications for this visit. Allergies Penicillins and Hybolsp-sen-zjj reductase inhibitors Physical Exam not performed telehealth Assessment Jovany is a very high risk 75-year-old man who suffered a STEMI complicated by A. fib, cardiogenic shock, and a CVA. He has multiple cardiovascular risk factors including peripheral artery disease, hyperlipidemia (elevated LDL, depressed HDL), a 38-ivet-cfeq history of smoking, and prediabetes. Jovany quit [...] Terrell MD [facility] ENDOCRINOLOGY [place], [place] [address] (Wo rk) documented as of this encounter Visit Diagnoses Diagnosis Tiny type IIa hyperlipoproteinemi a Pure hypercholesterolemia Hyperglycemia Other abnormal glucose Elevated TSH Other abnormal blood chemistry Hypothyroidism, acquired Unspecified hypothyroidism documented in this encounter Care Teams Art Appraiser Relationship Specialty Start Date End Date Jovany Lott MD PCP - General Family Medicine 02/05/20 [address] [place] [address] documented as of this encounter
--- OUTSIDE RECORDS SUMMARY | 2022-05-30 11:01 | XMS_ITS | Encounter Summary ---
:1945 Author Organization [facility] Address [address] [place] [address] Care Team Providers Name Role Phone Jennifer Gomez ENGINEER OPERATIONS AND MAINTENANCE Primary Care Provider Encounter Details Date Type Department Care Team Description 03/19/2019 Hospital Encounter [facility] Unknown, Provider, [facility] 0 [facility] [phone] [place] [address] (Work) [phone] Social History Tobacco Use Types Packs/Day Years Used Date Smoking Tobacco: Never Assessed Sex Assigned at Date Recorded Not on file documented as of this encounter Discharge Disposition Disposition Code Departure Means Destination Home or Self Prison documented in this encounter Plan of Treatment Not on filedocumented as of this encounter Visit Diagnoses Not on filedocumented in this encounter Care Teams Portrait Consultant Relationship Specialty Start Date End Date Jennifer Gomez, ENGINEER OPERATIONS AND MAINTENANCE PCP - General 05/10/15 [facility] [address] [place], [place] [address] documented as of this encounter
--- OUTSIDE RECORDS SUMMARY | 2022-05-30 11:01 | XMS_ITS | Encounter Summary ---
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 S/P DESx3 in the ftlzbmed-ws-efqaep RCA. Aspiration thrombectomy performed, and integrellin bolus [...] with ICH, bilateral PE; paroxysmal atrial fibrillation [[id number]: 5]; PAD; HLD; HTN; smoking and PFO, who presents for post-discharge cardiovascular follow-up. CV issues are currently stable. Plan 1. CAD - CCS Class 0. Recovering well. He has completed 1 month of triple therapy. He may stop his aspirin, and resume clopidogrel and apixaban. Starting cardiac rehab. He wishes to pursue PCSK9 referral via the [place]. 2. Afib - CHADS2-vasc 5, presently [...] 6 months Faustino Garduno MD Time spent: [id number] 0-5min [id number] 6-10min 7962VRB5 11-15min 4302YLB4 16-20min XXXX 9696QHI4 21-30min 6615JNG3 31-40min 3711STX2 40+ min documented in this encounter Plan of Treatment Upcoming Encounters Date Type Specialty Care Team Description 06/30/2022 Office Visit Endocrinology Alan Terrell MD [facility] [address] [place] [address] (Wo rk) documented as [...] type documented in this encounter Care Teams Recruitment Internship Relationship Specialty Start Date End Date France Lam MD PCP - General 05/02/13 02/04/20 [address] [place] [address] documented as of this encounter
--- OUTSIDE RECORDS SUMMARY | 2022-05-30 11:01 | XMS_ITS | Encounter Summary ---
:1945 [place] [address] Care Team Providers Name Role Phone France Lam MD Primary Care Provider Encounter Details Date Type Department Care Team Description 12/29/2019 Ancillary Procedure Radiology Library at Ivette Salas [facility] [place] [address] [place] [address] [place] [address] [phone] (Wo rk) Social History Tobacco Use Types Packs/Day Years Used Date Smoking Tobacco: Every Day Cigarettes 0.5 Cigars Sex Assigned at Date Recorded Not on file documented as of this encounter Plan of Treatment Upcoming Encounters Date Type Specialty Care Team Description 06/30/2022 Office Visit Endocrinology EchAlan coley MD [facility] ENDOCRINOLOGY [place], [place] [address] (Wo rk) documented as of [...] se is for storage only. Alfreda Salas [facility] FILM LIBRARY ORDERABLES Performing Organization Address City/State/ZIP Code Phon e Number [facility] [place], [place] documented in this encounter Visit Diagnoses Not on filedocumented in this encounter Care Teams Supervisor Carbon Electrodes Relationship Specialty Start Date End Date France Lam MD PCP - General 05/02/13 02/04/20 [address] [place] [address] documented as of this encounter
--- OUTSIDE RECORDS SUMMARY | 2022-05-30 11:01 | XMS_ITS | Clinical Summary ---
:1945 Author Organization [facility] Address [address] [place] [address] Care Team Providers Name Role Phone Jennifer Gomez Bunny CHIP WASHER Primary Care Provider Encounters Date Type Specialty [...] T3, Free 2.8 2.8 - 5.3 04/25/2022 [facility] MEDICAL pg/mL 21:09 EDT CENTER [facility] Specimen Anatomical Collection Method Collection Time Receive d Time (Source) Location / / Volume Laterality Blood VENOUS BLOOD / 04/24/2022 11:50 2 Unknown EDT 20:27 EDT Provider Outr Resulting Lab CHEMISTRY & BLOOD GAS CHLOE IBARRA Performing Organization Address City/State/ZIP Code Phon e Number [facility] CENTER LABORATORY [address] [place] [address] SERVICES from Last 3 Months Insurance Payer Benefit Plan Subscriber ID Effective Phone Address Typ e / Group Dates [employer] OF [employer] OF [id number] 2018-Prese [id number] [place] [address] MEDICARE MEDICARE A/B [id number] 2011-Pres [address] Medicare GL ent [id number] [phone] (Work) Jovany Hi Personal/Family Self [address] (Home) [place] [address] (Work) Jovany Hi Personal/Family Self [address] (Home) [place] [address] (Work) Care Teams Associate Professor Of Biblical Studies Relationship Specialty Start Date End Date Jennifer Gomez NP PCP - General 05/10/15 [facility] [address] [place], [place] [address] (work)
--- OUTSIDE RECORDS SUMMARY | 2022-05-30 11:01 | XMS_ITS | Encounter Summary ---
:1945 Author Organization [facility] [place] [address] Care Team Providers Name Role Phone Jovany Lott MD Primary Care Provider Encounter Details Date Type Department Care Team Description 10/05/2020 Notes Only Cardiology Merlin Sanchez [place] [address] CARDIOLOGY DEPT. [phone] [place], [place] [address] (Wo rk) Social History Tobacco [...] BEKAH-C with WM FLX Merlin Sanchez MD [facility] Pager [phone] documented in this encounter Plan of Treatment Upcoming Encounters Date Type Specialty Care Team Description 06/30/2022 Office Visit Endocrinology EchtAlan MD [facility] ER [address] [place], [place] [address] (Wo rk) documented as of this encounter Visit Diagnoses Not on filedocumented in this encounter Care Teams Clinic Physician Director Relationship Specialty Start Date End Date Jovany Lott MD PCP - General Family Medicine 02/05/20 [address] [place] [address] documented as of this encounter
--- OUTSIDE RECORDS SUMMARY | 2022-05-30 11:01 | XMS_ITS | Encounter Summary ---
:1945 Author Organization [facility] Address [address] [place] [address] Care Team Providers Name Role Phone Jennifer Gomez INDUSTRIAL SEWER Primary Care Provider Encounter Details Date Type Department Care Team Description 01/25/2022 Lab Requisition [facility] Center Outr Resulting Lab, Pathology & Laboratory Provider [facility] [address] [place], [place] [id number] Social History Tobacco Use Types Packs/Day Years [...] BACTERIAL PATHOGENS BY PCR (01/24/2022 14:50 EDT) [facility] Method Time Signature Salmonella PCR Negative Negative 01/25/2022 [facility] MEDICAL 22:03 EDT CENTER LABORATORY SERVICES Shigella/Enteroin Negative Negative 01/25/2022 [facility] vasive E. coli 22:03 EDT CENTER LABORATORY SERVICES [facility] LAB Negative Negative 01/[facility]20[facility] 22:03 EDT [facility] Shiga Toxin PCR Negative Negative 01/25/2022 [facility] MEDICAL 22:03 EDT CENTER LABORATORY SERVICES Specimen Anatomical Collection Method Collection Time Receive d Time (Source) Location / / Volume Laterality Feces SPECIMEN FROM 01/24/2022 14:50 01/25/2022 [facility] / Unknown EDT 17:30 EDT Provider Outr Resulting Lab MICROBIOLOGY - GENERAL ORD ERABLES Performing Organization Address City/State/[facility] Code Phon e Number [facility] MEDICAL CENTER LABORATORY [address] [place] [address] SERVICES documented in this encounter Visit Diagnoses Not on filedocumented in this encounter Care Teams Utilization Management Rn Relationship Specialty Start Date End Date Jennifer Gomez, NAMITA PCP - General 05/10/15 [facility] [address] [place] [address] documented as of this encounter
--- OUTSIDE RECORDS SUMMARY | 2022-05-30 11:01 | XMS_ITS | Encounter Summary ---
:1945 Author Organization [place] [address] Care Team Providers Name Role Phone Jovany Lott MD Primary Care Provider Encounter Details Date Type Department Care Team Description 10/08/2020 Telephone Cardiology at [facility] Faustino Garduno MD [facility] [place] [address] [place] [address] [phone] (Wo rk) Social History Tobacco Use Types [...] prevention and ability to be off anticoagulation mcfp. Left message for callback to our Structural Program (contact Willow Callejas APRN). If he is interested, I would be happy to offerscheduling for him. Faustino Garduno MD Pager [phone] documented in this encounter Plan of Treatment Upcoming Encounters Date Type Specialty Care Team Description 06/30/2022 Office Visit Endocrinology Alan Terrell MD [facility] [place]CR[facility]OLOGY [place], [place] [address] (Wo rk) documented as of this encounter Visit Diagnoses Not on filedocumented in this encounter Care Teams Electronic News Gathering Editor Relationship Specialty Start Date End Date Jovany Lott MD PCP - General Family Medicine 02/05/20 [address] [place] [address] documented as of this encounter
--- OUTSIDE RECORDS SUMMARY | 2022-05-30 11:01 | XMS_ITS | Encounter Summary ---
:1945 Author Organization [facility] [place] [address] Care Team Providers Name Role Phone Jovany Lott MD Primary Care Provider Encounter Details Date Type Department Care Team Description 03/10/2022 Ancillary Procedure Radiology Library at Jovany Lott MD [facility] [address] [facility] [address] [place] [address] [phone] Social History Tobacco Use Types Packs/Day Years Used Date Smoking Tobacco: Former Cigarettes 0.5 Quit : 11/29/2019 Cigars Smokeless Tobacco: Former Sex Assigned at Date Recorded Not on file documented as of this encounter Plan of Treatment Upcoming Encounters Date Type Specialty Care Team Description 06/30/2022 Office Visit Endocrinology EchAlan coley MD [facility] ENDOCRINOLOGY [place], [place] [address] (Wo rk) documented as of [...] Code Phon e Number [facility] [place], [place] documented in this encounter Visit Diagnoses Not on filedocumented in this encounter Care Teams Distillation Operator Relationship Specialty Start Date End Date Jovany oLtt MD PCP - General Family Medicine 02/05/20 [place] [address] documented as of this encounter
--- OUTSIDE RECORDS SUMMARY | 2022-05-30 11:01 | XMS_ITS | Continuity of Care Document ---
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 Z23 Encounter for [place]IE [place] immunizationwith CBO C Provider Comments: Encounter for Immunization Diagnosis: ICD-10-CM Active Diagnosis ST. H90.3 Sensorineural [facility] hearing loss, CBOC bilateralwith Provider Comments: Asymmetrical sensorineural hearing loss (SNOMED CT [id number]) Diagnosis: ICD-10-CM Active Diagnosis ST. I25.10 Athscl heart [facility] disease of southern ute CB OC coronary artery w/o ang pctrswith Provider Comments: Atherosclerotic Heart Disease of [place] Coronary Artery without Angina Pectoris Medications Combined list of outpatient medications from Department of Defense and Veterans Affairs facilities. Medications provided include 1) outpatient medications from the last 15 months, and 2) patient-reported medications. Medication Details Route Status Patient Prescription Prescription Last Ordering Order Source Instructions Expires Number Dispense Provider Date Date AMIODARONE TAKE ONE ORAL ACTIVE 02/14/2023 [id number] JORGE A LOZA 02/15/ CARLOS HCL TABLET 2 N 2021 [place] (PACERONE) BY MOUTH [place] 200MG TAB EVERY [facility] DAY AFTER ONE MONTH OF TWICE DAILY DOSING THROUGH 02/26/22 APIXABAN TAKE ONE ORAL ACTIVE 2023 [id number] WILLIE LOZA 01/20/ WHITE 5MG TAB TABLET 2 N 2021 [place] BY MOUTH [place] TWICE A [facility] DAY TO HELP PREVENT BLOOD CLOTS (ANTICOA GULATION CCNRX) APIXABAN TAKE ONE ORAL 12/21/2021 [id number] GIANGR ECO 12/30/ WHITE 5MG TAB TABLET [...] DAY FUROSEMIDE TAKE ONE ORAL ACTIVE 12/17/2022 [id number] JORGE A LOZA 12/21/ WHITE 20MG TAB TABLET 2 N 2021 [place] BY MOUTH [place] EVERY [facility] OTHER DAY TO REMOVE FLUID/CO NTROL BLOOD PRESSURE FUROSEMIDE TAKE ONE ORAL 11/12/2021 [id number] SJ PATTON,M 11/12/ ST. 20MG TAB TABLET 2 ICHAEL 2020 [place] BY MOUTH RY CBOC EVERY OTHER DAY TO REMOVE FLUID/CO NTROL BLOOD PRESSURE LISINOPRIL TAKE ONE ORAL ACTIVE 12/17/2022 [id number] JORGE A LOZA 12/21/ WHITE 5MG TAB TABLET 2 N 2021 [place] BY MOUTH [place] EVERY [facility] DAY TO CONTROL BLOOD PRESSURE LISINOPRIL TAKE ONE ORAL DISCONT 06/08/2022 [id number] JORGE A LOZA 06/15/ WHITE 5MG TAB TABLET INUED 2 N 2020 [place] BY MOUTH [place] EVERY [facility] DAY TO CONTROL BLOOD PRESSURE LISINOPRIL TAKE ONE ORAL 06/03/2021 [id number] STANL EY,M 06/08/ ST. 5MG TAB TABLET 1 ICHAEL 2019 [place] BY MOUTH RY CBOC EVERY DAY TO CONTROL BLOOD PRESSURE METOPROLOL TAKE ONE ORAL ACTIVE 02/14/2023 [id number] JORGE A LOZA 02/15/ WHITE SUCCINATE TABLET 2 N 2021 [place] 25MG TAB,SA BY MOUTH [place] EVERY [facility] DAY FOR BLOOD PRESSURE /HEART METOPROLOL TAKE ONE ORAL DISCONT 02/23/2022 [id number] Mery BLEVINS 02/28/ ST. SUCCINATE TABLET INUED 2 ICHAEL 2020 [place] 25MG TAB,SA BY MOUTH RY CB OC EVERY DAY FOR BLOOD PRESSURE /HEART NITROGLYCER TAKE ONE SUBLIN 02/23/2022 [id number] Stew LUOMery 02/28/ ST. 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 2020 ed [...] multiply result by 1.210 Tests performed on [employer] (405) SN:[id number] [place] eGFR E] IN SERUM Ordering Pr ovider: [facility] UREÑA [facility] PANEL OR PLASMA Report Releas ed Date/Time: Feb 24, 2021 11:18 AM Reporting Lab: [place] [facility] [address] [place] [facility] [place] [facility] [place] [address] Performing Lab: [place] [facility] [address] [place] [facility] [place] [address] CREATININ GLOMERULAR 44 60 04/28 L Specimen Ty pe: PLASMA WHITE E WITH FILTRATION /2020 Comment: For eGFR: Race unknown, if multiply result by 1.210 Tests performed on [employer] (405) SN:[id number] [place] eGFR RATE/1.73 Ordering Prov ider: [facility] PANEL SQ Report Released Date/Time: Feb 24, 2021 11:18 AM M.PREDICTED Reporting L ab: [place] [facility] [VOLUME [address] [place] [facility] [place] [address] RATE/AREA] Performing L ab: [place] [facility] IN SERUM OR [address] [place] [facility] [place] [place] [address] PLASMA BY CREATININE- BASED FORMULA (MDRD) CBC NO LEUKOCYTES 5.8 4.5 - 11.0 04/28 Specimen T ype: BLOOD WHITE DIFF [#/VOLUME] /2020 No comment en tered. [place] IN BLOOD BY Ordering Pr ovider: [facility] AUTOMATED Report Releas ed Date/Time: Feb 24, 2021 11:18 AM COUNT Reporting Lab: [place] [facility] [address] [place] [facility] [place] [facility] [place] [address] Performing Lab: [place] [facility] [address] [place] [facility] [place] [address] CBC NO ERYTHROCYTE 4.61 4.23 - 04/28 Specimen Typ e: BLOOD WHITE DIFF S 5.66 /2020 No comment enter ed. [place] [#/VOLUME] Ordering Pro vider: [facility] IN BLOOD BY Report Rele ased Date/Time: Feb 24, 2021 11:18 AM AUTOMATED Reporting Lab : [place] [facility] COUNT [address] [place] [facility] [place] [address] Performing Lab: [place] [facility] [address] [facility] [address] CBC NO HEMOGLOBIN 13.9 12.8 - 17 04/28 Specimen Ty pe: BLOOD WHITE DIFF [MASS/VOLUM /2020 No comment e ntered. [place] E] IN BLOOD Ordering Pr ovider: MILTON UREÑAOC Report Released Date/Time: Feb 24, 2021 11:18 AM Reporting Lab: [facility] [facility] [address] [facility] [address] Performing Lab: [place] [facility] [address] [facility] [address] CBC NO HEMATOCRIT 43.6 39.2 - 04/28 Specimen Type : BLOOD WHITE DIFF [VOLUME 50.4 No comment enter ed. [place] FRACTION] Ordering Prov ider: [facility] U[facility] OF BLOOD BY Report Rele ased Date/Time: Feb 24, 2021 11:18 AM AUTOMATED Reporting Lab : [place] [facility] COUNT [address] [facility] [address] Performing Lab: [place] [facility] [address] [facility] [address] CBC NO MCV 94.6 82 - 99 04/28 Specimen Type: B LOOD WHITE DIFF [ENTITIC /2020 No comment ente red. [place] VOLUME] BY Ordering Pro vider: MILTON UREÑ[facility] AUTOMATED Report Releas ed Date/Time: Feb 24, 2021 11:18 AM COUNT Reporting Lab: [facility] [facility] [address] [place] [facility] [place] [address] Performing Lab: [facility] [facility] [address] [place] [facility] [place] [address] CBC NO MCH 30.2 26.2 - 04/28 Specimen Type: B LOOD WHITE DIFF [ENTITIC 32.6 No comment ente red. [place] MASS] BY Ordering Provi adrian: MILTON UREÑAOC AUTOMATED Report Releas ed Date/Time: Feb 24, 2021 11:18 AM COUNT Reporting Lab: [facility] [facility] [address] [facility] [address] Performing Lab: [place] [facility] [address] [facility] [address] CBC NO MCHC 31.9 30.8 - 04/28 Specimen Type: B LOOD WHITE DIFF [MASS/VOLUM 35.1 No comment e ntered. [place] E] BY Ordering Provid er: MILTON UREÑA AUTOMATED Report Releas ed Date/Time: Feb 24, 2021 11:18 AM COUNT Reporting Lab: [facility] [facility] [address] [facility] [address] Performing Lab: [place] [facility] [address] [facility] [address] CBC NO PLATELETS 141 140 - 360 04/28 Specimen Typ e: BLOOD WHITE DIFF [#/VOLUME] /2020 No comment en tered. [place] IN BLOOD BY Ordering Pr ovider: MILTON UREÑA AUTOMATED Report Releas ed Date/Time: Feb 24, 2021 11:18 AM COUNT Reporting Lab: [facility] [facility] [address] [facility] [address] Performing Lab: [place] [facility] [address] [facility] [address] CBC NO PLATELET 12.1 9.2 - 12.4 04/28 Specimen Typ e: BLOOD WHITE DIFF MEAN VOLUME /2020 No comment e ntered. [place] [ENTITIC Ordering Provi adrian: MILTON UREÑAOC VOLUME] IN Report Relea sed Date/Time: Feb 24, 2021 11:18 AM BLOOD BY Reporting Lab: [place] [facility] AUTOMATED [address] [facility] [address] COUNT Performing Lab: [place] [facility] [address] [facility] [address] CBC NO ERYTHROCYTE 15.0 12.0 - 04/28 Specimen Typ e: BLOOD WHITE DIFF DISTRIBUTIO 16.0 No comment e ntered. [place] N WIDTH Ordering Provid er: MILTON UREÑAOC [RATIO] BY Report Relea sed Date/Time: Feb 24, 2021 11:18 AM AUTOMATED Reporting Lab : [place] [facility] COUNT [address] [facility] [address] Performing Lab: [place] [facility] [address] [facility] [address] CREATININ CREATININE 1.37 0.5 - 1.5 02/22 Specimen Type: PLASMA WHITE E WITH [MASS/VOLUM /2020 Comment: Fo r eGFR: Race unknown, if multiply result by 1.210 Tests performed on [employer] (405) SN:[id number] [place] eGFR E] IN SERUM Ordering Pr ovider: [facility] URÑEA [facility] PANEL OR PLASMA Report Releas ed Date/Time: Dec 20, 2020 02:24 PM Reporting Lab: [place] [facility] [address] [facility] [address] Performing Lab: [place] [facility] [address] [facility] [address] CREATININ GLOMERULAR 51 60 02/22 L Specimen Ty pe: PLASMA WHITE E WITH FILTRATION /2020 Comment: For eGFR: Race unknown, if multiply result by 1.210 Tests performed on [employer] (405) SN:[id number] [place] eGFR RATE/1.73 Ordering Prov ider: [facility] PANEL SQ Report Released Date/Time: Dec 20, 2020 02:24 PM M.PREDICTED Reporting L ab: [place] [facility] [VOLUME [address] [facility] [address] RATE/AREA] Performing L ab: [place] [facility] IN SERUM OR [address] [facility] [address] PLASMA BY CREATININE- BASED FORMULA (MDRD) CBC NO LEUKOCYTES 6.8 4.5 - 11.0 02/22 Specimen T ype: BLOOD WHITE DIFF [#/VOLUME] /2020 No comment en tered. [place] IN BLOOD BY Ordering Pr ovider: [facility] AUTOMATED Report Rele ed Date/Time: Dec 20, 2020 02:24 PM COUNT Reporting Lab: [facility] [facility] [address] [facility] [address] Performing Lab: [facility] [facility] [address] [facility] [address] CBC NO ERYTHROCYTE 5.03 4.23 - 08/24 Specimen Typ e: BLOOD WHITE DIFF S 5.66 /2020 No comment enter ed. [place] [#/VOLUME] Ordering Pro vider: [facility] IN BLOOD BY Report Rele ased Date/Time: Dec 20, 2020 02:24 PM AUTOMATED Reporting Lab : [place] [facility] COUNT [address] [place] [address] Performing Lab: [facility] [facility] [address] [place] [facility] [place] [facility] [place] [address] CBC NO HEMOGLOBIN 14.9 12.8 - 17 02/22 Specimen Ty pe: BLOOD WHITE DIFF [MASS/VOLUM /2020 No comment e ntered. [place] E] IN BLOOD Ordering Pr ovider: MILTON UREÑAOC Report Released Date/Time: Dec 20, 2020 02:24 PM Reporting Lab: [place] [facility] [address] [place] [facility] [place] [facility] [place] [address] Performing Lab: [facility] [facility] [address] [place] [facility] [place] [facility] [place] [address] CBC NO HEMATOCRIT 46.7 39.2 - 02/22 Specimen Type : BLOOD WHITE DIFF [VOLUME 50.4 No comment enter ed. [place] FRACTION] Ordering Prov ider: [facility] OF BLOOD BY Report Rele ased Date/Time: Dec 20, 2020 02:24 PM AUTOMATED Reporting Lab : [place] [facility] COUNT [address] [place] [facility] [place] [facility] [place] [address] Performing Lab: [facility] [facility] [address] [place] [facility] [place] [place] [address] CBC NO MCV 92.8 82 - 99 02/22 Specimen Type: B LOOD WHITE DIFF [ENTITIC /2020 No comment ente red. [place] VOLUME] BY Ordering Pro vider: MILTON UREÑ[facility] AUTOMATED Report Releas ed Date/Time: Dec 20, 2020 02:24 PM COUNT Reporting Lab: [facility] [place] [address] [place] [facility] [place] [place] [address] Performing Lab: [facility] [place] [facility] [address] [place] [facility] [place] [place] [address] CBC NO MCH 29.6 26.2 - 02/22 Specimen Type: B LOOD WHITE DIFF [ENTITIC 32.6 /2020 No comment ente red. [place] MASS] BY Ordering Provi adrian: MILTON UREÑA AUTOMATED Report Releas ed Date/Time: Dec 20, 2020 02:24 PM COUNT Reporting Lab: [facility] [place] [facility] [address] [place] [facility] [place] [facility] [place] [address] Performing Lab: [facility] [facility] [address] [place] [facility] [place] [address] CBC NO MCHC 31.9 30.8 - 08 Specimen Type: B LOOD WHITE DIFF [MASS/VOLUM 35.1 /2020 No comment e ntered. [place] E] BY Ordering Provid er: MILTON UREÑA AUTOMATED Report Releas ed Date/Time: Dec 20, 2020 02:24 PM COUNT Reporting Lab: [facility] [place] [address] [place] [facility] [place] [address] Performing Lab: [facility] [place] [place] [address] [place] [facility] [place] [address] CBC NO PLATELETS 159 140 - 360 08 Specimen Typ e: BLOOD WHITE DIFF [#/VOLUME] /2020 No comment en tered. [place] IN BLOOD BY Ordering Pr ovider: MIL[facility] UREÑ[facility] AUTOMATED Report Releas ed Date/Time: Dec 20, 2020 02:24 PM COUNT Reporting Lab: [facility] [place] [address] [place] [facility] [place] [address] Performing Lab: [facility] [place] [place] [address] [place] [facility] [place] [address] CBC NO PLATELET 13.0 9.2 - 12.4 08/24 H Specimen Typ e: BLOOD WHITE DIFF MEAN VOLUME /2020 No comment e ntered. [place] [ENTITIC Ordering Provi adrian: MILTON UREÑA VAOC VOLUME] IN Report Relea sed Date/Time: Dec 20, 2020 02:24 PM BLOOD BY Reporting Lab: [facility] [facility] AUTOMATED [address] [facility] [place] [place] [address] COUNT Performing Lab: [facility] [place] [address] [place] [facility] [place] [address] CBC NO ERYTHROCYTE 14.6 12.0 - 08 Specimen Typ e: BLOOD WHITE DIFF DISTRIBUTIO 16.0 /2020 No comment e ntered. [place] N WIDTH Ordering Provid er: [facility] [RATIO] BY Report Relea sed Date/Time: Dec 20, 2020 02:24 PM AUTOMATED Reporting Lab : [facility] [address] [facility] [address] Performing Lab: [facility] [address] [facility] [address] P4 UREA 20 7 - 25 02/22 Specimen Type: P LASMA ST. GLU,BUN,C NITROGEN /2020 Comment: For eGFR: Race unknown, if multiply result by 1.210 Tests performed on WILEX (405) SN:[id number] IVORY BECKETT [MASS/VOLUM Ordering Provider: GRETCHEN PEREZ CA E] IN SERUM Report Rele ased Date/Time: Feb 22, 2021 10:13 AM OR PLASMA Reporting Lab : [facility] [address] [facility] [address] Performing Lab: [facility] [address] [facility] [address] P4 SODIUM 133 135 - 145 / L Specimen Type: PLASMA ST. GLU,BUN,C [MOLES/VOLU /2020 Comment: For eGFR: Race unknown, if multiply result by 1.210 Tests performed on [employer] (405) SN:[id number] IVORY BECKETT ID] IN Ordering Prov ider: GRETCHEN PEREZ CA SERUM OR Report Release d Date/Time: Feb 22, 2021 10:13 AM PLASMA Reporting Lab: [facility] [address] [facility] [address] Performing Lab: [facility] [address] [facility] [address] P4 POTASSIUM 4.5 3.5 - 5.0 02/22 Specimen Typ e: PLASMA ST. GLU,BUN,C [MOLES/VOLU /2020 Comment: For eGFR: Race unknown, if multiply result by 1.210 Tests performed on [employer] (405) SN:[id number] IVORY BECKETT ID] IN Ordering Prov ider: GRETCHEN PEREZ CA SERUM OR Report Release d Date/Time: Feb 22, 2021 10:13 AM PLASMA Reporting Lab: [facility] [address] [place] [facility] [place] [address] Performing Lab: [facility] [address] [facility] [address] P4 CHLORIDE 102 100 - 110 02/22 Specimen Type : PLASMA ST. GLU,BUN,C [MOLES/VOLU /2020 Comment: For eGFR: Race unknown, if multiply result by 1.210 Tests performed on [employer] (405) SN:[id number] MARCELA REAT,LYTE ME] IN Ordering Prov ider: GRETCHEN PEREZ CA SERUM OR Report Release d Date/Time: Feb 22, 2021 10:13 AM PLASMA Reporting Lab: [facility] [address] [place] [facility] [place] [address] Performing Lab: [facility] [address] [place] [facility] [place] [address] P4 CARBON 21 20 - 30 02/22 Specimen Type: P LASMA ST. GLU,BUN,C DIOXIDE, /2020 Comment: For eGFR: Race unknown, if multiply result by 1.210 Tests performed on [employer] (405) SN:[id number] JOHNSCAESAR REAT,LYTE TOTAL Ordering Prov ider: GRETCHEN PEREZ CA [MOLES/VOLU Report Rele ased Date/Time: Feb 22, 2021 10:13 AM ME] IN Reporting Lab[facility] [address] [place] [facility] [place] [place] [address] PLASMA Performing Lab: [facility] [address] [place] [facility] [place] [address] P4 ANION GAP 10 4 - 16 02/22 Specimen Type: PLASMA ST. GLU,BUN,C IN SERUM OR /2020 Comment: For eGFR: Race unknown, if multiply result by 1.210 Tests performed on [employer] (405) SN:[id number] JOHNSCAESAR REAT,LYTE PLASMA Ordering Prov ider: GRETCHEN PEREZ CA Report Released Date/Time: Feb 22, 2021 10:13 AM Reporting Lab: [facility] [address] [place] [facility] [place] [address] Performing Lab: [facility] [address] [facility] [address] P4 GLUCOSE 106 65 - 100 08/24 H Specimen Type: PLASMA ST. GLU,BUN,C [MASS/VOLUM /2020 Comment: For eGFR: Race unknown, if multiply result by 1.210 Tests performed on [employer] (405) SN:[id number] IVORY BECKETT] IN SERUM Ordering Provider: GRETCHEN PEREZCA OR PLASMA Report Releas ed Date/Time: Feb 22, 2021 10:13 AM Reporting Lab: [facility] [address] [facility] [address] Performing Lab: [facility] [address] [facility] [address] P4 CREATININE 1.37 0.5 - 1.5 08/24 Specimen Ty pe: PLASMA ST. GLU,BUN,C [MASS/VOLUM /2020 Comment: For eGFR: Race unknown, if multiply result by 1.210 Tests performed on [employer] (405) SN:[id number] BLAIR BECKETTTE E] IN SERUM Ordering Provider: GRETCHEN PEREZ CA OR PLASMA Report Releas ed Date/Time: Feb 22, 2021 10:13 AM Reporting Lab: [facility] [address] [facility] [address] Performing Lab: [facility] [address] [facility] [address] P4 CALCIUM 9.6 8.5 - 10.5 02/22 Specimen Type : PLASMA ST. GLU,BUN,C [MASS/VOLUM /2020 Comment: For eGFR: Race unknown, if multiply result by 1.210 Tests performed on [employer] (405) SN:[id number] BLAIR BECKETTTE E] IN SERUM Ordering Provider: GRETCHEN PEREZCA OR PLASMA Report Releas ed Date/Time: Feb 22, 2021 10:13 AM Reporting Lab: [facility] [address] [facility] [address] Performing Lab: [facility] [address] [facility] [address] P4 GLOMERULAR 51 60 08/24 L Specimen Type : PLASMA ST. GLU,BUN,C FILTRATION /2020 Comment: F or eGFR: Race unknown, if multiply result by 1.210 Tests performed on [employer] (405) SN:[id number] IVORY BECKETT RATE/1.73 Ordering Pr ovider: GRETCHEN PEREZ S,CA SQ Report Released Date/Time: Feb 22, 2021 10:13 AM M.PREDICTED Reporting L ab: [place] [facility] [VOLUME [address] [facility] [address] RATE/AREA] Performing L ab: [place] [facility] IN SERUM OR [address] [facility] [address] PLASMA BY CREATININE- BASED FORMULA (MDRD) [place]IVER PROTEIN 8.0 6.0 - 8.5 02/22 Specimen Type: PLASMA ST. PROFILE [MASS/VOLUM /2020 Comment: Fo r eGFR: Race unknown, if multiply result by 1.210 Tests performed on [employer] (405) SN:[id number] MARCELA E] IN SERUM Ordering Pr ovider: GRETCHEN PEREZ OR PLASMA Report Releas ed Date/Time: Feb 22, 2021 10:13 AM Reporting Lab: [facility] [facility] [address] [place] [facility] [place] [facility] [place] [address] Performing Lab: [facility] [address] [place] [facility] [place] [address] LIVER ALBUMIN 4.0 3.2 - 5.0 02/22 Specimen Type: PLASMA ST. PROFILE [MASS/VOLUM /2020 Comment: Fo r eGFR: Race unknown, if multiply result by 1.210 Tests performed on [employer] (405) SN:[id number] MARCELA E] IN SERUM Ordering Pr ovider: GRETCHEN PEREZ OR PLASMA Report Releas ed Date/Time: Feb 22, 2021 10:13 AM Reporting Lab: [facility] [address] [place] [facility] [place] [facility] [place] [address] Performing Lab: [facility] [address] [place] [facility] [place] [address] LIVER BILIRUBIN.T 0.6 0.2 - 1.2 02/22 Specimen T ype: PLASMA ST. PROFILE OTAL /2020 Comment: For eG FR: Race unknown, if multiply result by 1.210 Tests performed on [employer] (405) SN:[id number] [facility] [MASS/VOLUM Ordering Pr ovider: GRETCHEN PEREZ E] IN SERUM Report Rele ased Date/Time: Feb 22, 2021 10:13 AM OR PLASMA Reporting Lab : [facility] [address] [facility] [address] Performing Lab[facility] [address] [facility] [address] LIVER ALKALINE 75 40 - 150 08 Specimen Type: PLASMA ST. PROFILE PHOSPHATASE /2020 Comment: Fo r eGFR: Race unknown, if multiply result by 1.210 Tests performed on [employer] (405) SN:[id number] [facility] [ENZYMATIC Ordering Pro vider: GRETCHEN PEREZ ACTIVITY/VO Report Rele ased Date/Time: Feb 22, 2021 10:13 AM LUME] IN Reporting Lab: [facility] SERUM OR [address] [facility] [address] PLASMA Performing Lab: [facility] [address] [facility] [address] LIVER ALANINE 16 7 - 52 02/22 Specimen Type: P LASMA ST. PROFILE AMINOTRANSF /2020 Comment: Fo r eGFR: Race unknown, if multiply result by 1.210 Tests performed on [employer] (405) SN:[id number] [facility] ERASE Ordering Provid er: GRETCHEN PEREZ [ENZYMATIC Report Relea sed Date/Time: Feb 22, 2021 10:13 AM ACTIVITY/VO Reporting L ab: [facility] LUME] IN [address] [place] [facility] [place] [place] [address] SERUM OR Performing Lab : [facility] PLASMA [address] [place] [facility] [place] [address] LIVER ASPARTATE 17 5 - 34 02/22 Specimen Type: PLASMA ST. PROFILE AMINOTRANSF /2020 Comment: Fo r eGFR: Race unknown, if multiply result by 1.210 Tests performed on [employer] (405) SN:[id number] [facility] ERASE Ordering Provid er: GRETCHEN PEREZ [ENZYMATIC Report Relea sed Date/Time: Feb 22, 2021 10:13 AM ACTIVITY/VO Reporting L ab: [facility] LUME] IN [address] [facility] [address] SERUM OR Performing Lab : [facility] PLASMA [address] [facility] [address] GLYCOHEMO HEMOGLOBIN 6.2 4.0 - 5.6 08/24 H Specimen Type: BLOOD ST. GLOBIN A1C/HEMOGLO /2020 Comment: Te sts performed on [employer] (405) SN:[id number] [facility] (A1C BIN.TOTAL Ordering Prov ider: GRETCHEN PEREZ ONLY) IN BLOOD BY Report Rele ased Date/Time: Feb 22, 2021 10:13 AM HPLC Reporting Lab: [facility] [address] [facility] [address] Performing Lab: [facility] [address] [facility] [address] LIPOPROTE CHOLESTEROL 361 0 - 199 08/24 H Specimen T ype: PLASMA ST. IN [MASS/VOLUM /2020 Comment: Fo r eGFR: Race unknown, if multiply result by 1.210 Tests performed on [employer] (405) SN:[id number] [facility] CHOLESTER E] IN SERUM Ordering Provider: GRETCHEN PEREZ OL FRACT. OR PLASMA Report Rele ased Date/Time: Feb 22, 2021 10:13 AM PANEL Reporting Lab: [facility] [address] [facility] [address] Performing Lab: [facility] [address] [facility] [address] LIPOPROTE TRIGLYCERID 170 0 - 149 08/24 H Specimen T ype: PLASMA ST. IN E Comment: For eG FR: Race unknown, if multiply result by 1.210 Tests performed on [employer] (405) SN:[id number] MARCELA CHOLESTER [MASS/VOLUM Ordering Provider: GRETCHEN PEREZ OL FRACT. E] IN SERUM Report Re leased Date/Time: Feb 22, 2021 10:13 AM PANEL OR PLASMA Reporting Lab : [facility] [address] [facility] [address] Performing Lab: [facility] [address] [facility] [address] LIPOPROTE CHOLESTEROL 46 40 08/24 Specimen T ype: PLASMA ST. IN IN HDL /2020 Comment: For eG FR: Race unknown, if multiply result by 1.210 Tests performed on [employer] (405) SN:[id number] MARCELA CHOLESTER [MASS/VOLUM Ordering Provider: GRETCHEN PEREZ OL FRACT. E] IN SERUM Report Re leased Date/Time: Feb 22, 2021 10:13 AM PANEL OR PLASMA Reporting Lab : [facility] [address] [facility] [address] Performing Lab: [facility] [address] [facility] [address] LIPOPROTE CHOLESTEROL 281 0 - 129 08/24 H Specimen T ype: PLASMA ST. IN IN LDL /2020 Comment: For eG FR: Race unknown, if multiply result by 1.210 Tests performed on Gonsalez Art Supervisor (405) SN:[id number] MARCELA CHOLESTER [MASS/VOLUM Ordering Provider: GRETCHEN PEREZ OL FRACT. E] IN SERUM Report Re leased Date/Time: Feb 22, 2021 10:13 AM PANEL OR PLASMA Reporting Lab : [facility] BY [address] [facility] [address] CALCULATION Performing Lab: [facility] [address] [facility] [address] VITAMIN COBALAMIN 312 200 - 900 02/22 Specimen Typ e: SERUM ST. B-12 (VITAMIN /2020 Comment: Tests performed on Gonsalez Art Supervisor (405) SN:[id number] [facility] B12) Ordering Provid er: GRETCHEN PEREZ [MASS/VOLUM Report Rele ased Date/Time: Feb 22, 2021 10:13 AM E] IN SERUM Reporting L ab: [facility] OR PLASMA [address] [facility] [address] Performing Lab: [facility] [address] [facility] [address] TSH THYROTROPIN 3.14 0.35 - 02/22 Specimen Typ e: SERUM ST. 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
wi th Provide r Comment s: Long-te rm current use of anticoa gulant (SCT 1870355 ) Outpatient 02/22 WHIT E Encounter [id number] [facility] OFFICE O/P 70956-5 Diagnos [place] 02/22 ST. 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
wi th Provide r Comment s: Long-te rm current use of anticoa gulant (SCT 1435228 ) Outpatient [id number] 03/02 WH[facility] E [id number] [facility] 13047-3.40 Diagnos RADHA, 04/12 ST. ELA [id number] is: [facility] A [facility] 39 ICD-10- RY CBOC TEST CM H90.3 Sensori neural hearing loss, bilater al
with Provide r Comment s: Asymmet rical sensori neural hearing loss (SNOMED CT [id number] 09) Outpatient [id number] 04/15 WHIT E Encounter [id number] /2021 [facility] OFFICE O/P 63592-8.40 Diagnos PETTIGLIO, 04/28 ST. EST [id number] is: SAMMY A JOHNSB U MINIMAL 02 ICD-10- RY CBOC PROB CM Z23 Encount er for immuniz ation<b r/>with Provide r Comment s: Encount er for Immuniz ation HC PRO 25210-8.40 Diagnos NICOLA LEONE 04/29 W JIMBO PHONE CALL [id number] is: AN RIVE R 11-20 MIN ICD-10- JCT CM [facility] Z79.01 care home (curren t) use of anticoa gulants
wi Provide r Comment s: Long-te rm current use of anticoa gulant ([facility] [[email or web address] [id number]) Outpatient [id number] 07/04 WHIT E Encounter [id number] [facility] Outpatient [id number] 03/03 WHIT E Encounter [id number] [facility] Social History Combined list of available smoking, tobacco, and other social history from Department of Defense andVeterans Affairs facilities. Social History Response Date Comment Source Type Tobacco smoking VA-TOBACCO FORMER 02/22/2021 [facility] CBOC status NHIS USER History of tobacco VA-TOBACCO QUIT 1 02/22/2021 [facility] CBOC use TO < 5 YRS History of tobacco VA-TOBACCO FORMER 03/04/2020 [facility] CBOC use USER History of tobacco VA-TOBACCO USE 03/21/2018 [facility] use DIRECTOR DRUG SAFETY NO History of tobacco CURRENT SMOKER 01/16/2018 [facility] use History of tobacco CURRENT SMOKER 03/28/2017 [facility] VA use CLINIC History of tobacco CURRENT SMOKER 04/17/2016 smokes about half [facility] use a pack a day History of tobacco CURRENT SMOKER 04/22/2015 smokes about half [facility] use a pack a day Advance Directives List of completed, amended, or rescinded Advance Directives on record at Department of Veterans Affairs facilities. An actual copy of the Directive is not included. Date Advance Directive Provider Source 01/15/2019 ADVANCE DIRECTIVE DISCUSSION [facility]PH[facility]Z [facility]
--- OUTSIDE RECORDS SUMMARY | 2022-05-30 11:01 | XMS_ITS | Encounter Summary ---
:1945 Author Organization [facility] Address [address] [place] [address] Care Team Providers Name Role Phone Jennifer Gomez LAND LEASING EXAMINER Primary Care Provider Encounter Details Date Type Department Care Team Description 12/22/2019 Lab Requisition [facility] Outr Resulting Lab, Pathology & Laboratory Provider [facility] [address], [place] [id number] Social History Tobacco Use Types Packs/Day Years [...] Organization Address City/State/ZIP Code Phon e Number [facility] [address] [place] [address] SERVICES COVID-19 TESTING (12/22/2019 10:38 EDT) Analysis Performed At Patho logist Time Signature COVID-19 Negative Negative 12/23/2019 [facility] MEDICAL rt-PCR Result 19:43 EDT [facility] Comment: Negative results do not preclude 2019-nC oV infection and should not be used as the sole basis for treatment or other patient management decisions. Negative results must be combined with clinical observa tions, patient history, and epidemiologi álvaro information. This test was developed and its performa nce characteristics determined by [facility]. It has not been cleared or [...] by the FDA Performed on the [employer] 7500 Fast. Performing Lab AB [address] [facility] Lab 12/23/2019 19:43 EDT [facility] SERVICES Specimen Anatomical Collection Method Collection Time Receive d Time (Source) Location / / Volume Laterality Swab 12/22/2019 10:38 12/22/2019 EDT 16:05 EDT Provider Outr Resulting Lab MICROBIOLOGY - GENERAL ORD ERABLES Performing Organization Address City/State/ZIP Code Phon e Number [facility] [address] [place] [address] SERVICES documented in this encounter Visit Diagnoses Not on filedocumented in this encounter Care Teams Field Nurse Relationship Specialty Start Date End Date Jennifer Gomez NP PCP - General 05/10/15 [facility] [address] [place], [place] [address] documented as of this encounter
--- OUTSIDE RECORDS SUMMARY | 2022-05-30 11:01 | XMS_ITS | Encounter Summary ---
:1945 Author Organization [facility] Address [address] [place] [address] Care Team Providers Name Role Phone Jennifer Gomez HEALTH EDITOR Primary Care Provider Encounter Details Date Type Department Care Team Description 02/15/2022 Lab Requisition [facility] Outr Resulting Lab, Pathology & Laboratory Provider [facility] [address] [id number] Social History Tobacco Use Types Packs/Day Years [...] Free 9.3 (H) 2.8 - 5.3 02/15/2022 [facility] MEDICAL pg/mL 21:51 EDT [facility]ENTER [facility] SERVICES Specimen Anatomical Collection Method Collection Time Receive d Time (Source) Location / / Volume Laterality Blood VENOUS BLOOD / 02/15/2022 10:37 Unknown EDT 21:20 EDT Provider Outr Resulting Lab CHEMISTRY & BLOOD GAS CHLOE Duncan Organization Address City/State/ZIP Code Phon e Number [facility] [address] [place] [address] SERVICES documented in this encounter Visit Diagnoses Not on filedocumented in this encounter Care Teams Construction Or Leak Gang Laborer Relationship Specialty Start Date End Date Jennifer Gomez, HEALTH EDITOR PCP - General 05/10/15 [facility] [address] [place] [address] documented as of this encounter
--- OUTSIDE RECORDS SUMMARY | 2022-05-30 11:01 | XMS_ITS | Encounter Summary ---
:1945 Author Organization [facility] [place] [address] Care Team Providers Name Role Phone France Lam MD Primary Care Provider Encounter Details Date Type Department Care Team Description 12/08/2019 Telephone Neurosurgery at [facility] [place] [address] Social History Tobacco Use Types Packs/Day Years Used Date Smoking Tobacco: Every Day Cigarettes 0.5 Cigars Sex Assigned at Date Recorded Not on file documented as of this encounter Miscellaneous Notes Telephone Encounter - Elza Bradshaw - 12/22/2019 6:[address] in eDH Telephone Encounter - Elza Bradshaw - 12/18/2019 3:43 PM EDT Left message at [facility] requesting they call back to advise if patient has been scheduled for CT. Telephone Encounter - Sarah Boucher - 12/08/2019 3:[address] order to [facility] to schedule, 12/16-12/18 for 12/22 TOV scheduled w/[facility] Telephone Encounter - Sarah Boucher - 12/08/2019 9:50 AM EDT RN, please put in CT order external=Josue Pt's called not able to come to [facility] on 12/[address] requested to have CT locally at [facility] call w/results. documented in this encounter Plan of Treatment Upcoming Encounters Date Type Specialty Care Team Description 06/30/2022 Office Visit Endocrinology GenietAlan MD [facility] ER ENDOCRINOLOGY [place], [place] [address] (Wo rk) documented as of this encounter Visit Diagnoses Not on filedocumented in this encounter Care Teams Active Directory Administrator Relationship Specialty Start Date End Date France Lam MD PCP - General 05/02/13 02/04/20 [address] [place] [address] documented as of this encounter
--- OUTSIDE RECORDS SUMMARY | 2022-05-30 11:01 | XMS_ITS | Encounter Summary ---
:1945 Author Organization [facility] [address] Care Team Providers Name Role Phone France Lam MD Primary Care Provider Encounter Details Date Type Department Care Team Description 12/24/2019 Telephone [facility] [place] [facility] [place] [address] Social History Tobacco Use Types Packs/Day [...] on 12/28. Faxed push request to [facility] Telephone Encounter - Elza Bradshaw - 12/25/2019 11:50 AM EDT Called [place] [facility] statement services representative I spoke with patient has plan N and does not require authorization. Order faxed with demos to [facility]. Postponing to allow time for scheduling. Telephone Encounter - Cathy Jay - 12/24/2019 11:42 AM EDT Patient needs f/u appointment(s): With [facility] on/around 01/13 3 weeks TOV, s/p Intracranial hemorrhage, [facility] prior 1. [place] [facility]? ~~~~~~~~~~~~~~~~~~~~~~~~~~~~~~~~~~~~~~~~~~~~~~~~~~~~~~ Alfreda Salas APRN Sent: destini December 23, 2019 ??7:39 PM To: [facility]le[place] Jovany Hi ( ) : 1945> ?? Follow-up and Dispositions Check-out Note: Follow up head CT and TOV in 3 weeks unless vision worsens or he develops new symptoms in meantime ([facility] for CT) documented in this encounter Plan of Treatment Upcoming Encounters Date Type Specialty Care Team Description 06/30/2022 Office Visit Endocrinology Alan Terrell MD [facility] ER ENDOCRINOLOGY [place], [place] [address] (Wo rk) documented as of this encounter Visit Diagnoses Not on filedocumented in this encounter Care Teams Extrusion Press Operator Relationship Specialty Start Date End Date France Lam MD PCP - General 05/02/13 02/04/20 [address] [place] [address] documented as of this encounter
--- OUTSIDE RECORDS SUMMARY | 2022-05-30 11:01 | XMS_ITS | Encounter Summary ---
:1945 Author Organization [facility] Address [address] [place] [address] Care Team Providers Name Role Phone Jennifer Gomez OLAP DEVELOPER Primary Care Provider Encounter Details Date Type Department Care Team Description 02/07/2020 Lab Requisition [facility] Outr Resulting Lab, Pathology & Laboratory Provider [facility] [address] [place] [address] Social History Tobacco Use Types [...] TEST (02/07/2020 7:59 EDT) Analysis Performed At [facility] Time Signature COVID-19 NEGATIVE Negative 02/08/2020 [...] Organization Address City/State/ZIP Code Phon e Number [facility] [place], [place] COVID-19 TESTING (02/07/2020 7:59 EDT) Analysis Performed At [facility] Time Signature COVID-19 NEGATIVE Negative 02/08/2020 [...] Administration's Emergency Use Authorization. Performing Lab [employer] 02/08/2020 17:4 7 EDT [facility] SERVICES Specimen Anatomical Collection Method Collection Time Receive d Time (Source) Location / / Volume Laterality Swab 02/07/2020 7:59 02/07/2020 EDT 23:07 EDT Provider Outr Resulting Lab MICROBIOLOGY - GENERAL ORD ERABLES Performing Organization Address City/State/ZIP Code Phon e Number [facility] [address] [place] [address] SERVICES [facility] [place] documented in this encounter Visit Diagnoses Not on filedocumented in this encounter Care Teams Field Sales Trainer Relationship Specialty Start Date End Date Jennifer Gomez NP PCP - General 05/10/15 [facility] [address] [place], [place] [id number] documented as of this encounter
--- OUTSIDE RECORDS SUMMARY | 2022-05-30 11:01 | XMS_ITS | Encounter Summary ---
:1945 Author Organization [facility] [place] [address] Care Team Providers Name Role Phone France Lam MD Primary Care Provider Encounter Details Date Type Department Care Team Description 01/09/2020 TH Visit Neurology at [facility] Efrain Nicole, Intracranial hemorrhage; (TeleHealth) [facility] ESTEFANY Tobacco abuse; Drive [facility] Cerebrovascular accident (CV A) due to embolism of right posterior cerebral artery [facility] [address] NEUROLOGY [phone] [place] [address] Social History Tobacco Use Types Packs/Day Years Used Date Smoking Tobacco: Every Day Cigarettes 0.5 Cigars Sex Assigned at Date Recorded Not on file documented as of this encounter Progress Notes Efrain Nicole PA - 01/09/2020 9:00 AM EDT [facility] Disease [facility] Stroke Program [place] [address] t: [phone] / f: [phone] TELEPHONE ENCOUNTER Date of Appointment: 01/09/2020 I [...] cardiology - had f/u head CT at [facility] which was stable with resolving [...] -advised vision/eye exam with his local provider ([facility]); consider referral [...] Visit Endocrinology Alan Terrell MD [facility] ER ENDOCRINOLOGY [place], [place] [address] (Wo rk) documented as of this encounter Visit Diagnoses Diagnosis Intracranial hemorrhage Unspecified intracranial hemorrhage Tobacco abuse Tobacco use disorder Cerebrovascular accident (CVA) due to em bolism of right posterior cerebral artery documented in this encounter Care Teams Floorworker Distributor Relationship Specialty Start Date End Date France Lam MD PCP - General 05/02/13 02/04/20 [address] [place] [address] documented as of this encounter
--- OUTSIDE RECORDS SUMMARY | 2022-05-30 11:01 | XMS_ITS | Encounter Summary ---
:1945 Author Organization [facility] Address [facility] [place] [address] Care Team Providers Name Role Phone France Lam MD Primary Care Provider Reason for Visit Reason Onset Date Comments TeleHealth 01/08/2020 Appt 01/09/20 Encounter Details Date Type Department Care Team Description 01/08/2020 Telephone Neurology at [facility] Efrain Nicole PA TeleHealth (Appt [facility] 12[address] ) [place] [address] NEUROLOGY [phone] [place], [place] [address] (Wo rk) Social History Tobacco [...] Endocrinology Alan Terrell MD [facility] ER ENDOCR[place]OLOGY [place] [address] (Wo rk) documented as of this encounter Visit Diagnoses Not on filedocumented in this encounter Care Teams Stonecutter Assistant Relationship Specialty Start Date End Date France Lam MD PCP - General 05/02/13 02/04/20 [address] [place] [address] documented as of this encounter
--- OUTSIDE RECORDS SUMMARY | 2022-05-30 11:01 | XMS_ITS | Encounter Summary ---
:1945 Author Organization [facility] [place] [address] Care Team Providers Name Role Phone France Lam MD Primary Care Provider Encounter Details Date Type Department Care Team Description 12/08/2019 Orders Only Neurosurgery at [facility] Natalia Delong, Intracranial [facility] [place] [address] Social History Tobacco Use Types Packs/Day Years Used Date Smoking Tobacco: Every Day Cigarettes 0.5 Cigars Sex Assigned at Date Recorded Not on file documented as of this encounter Plan of Treatment Upcoming Encounters Date Type Specialty Care Team Description 06/30/2022 Office Visit Endocrinology Alan Terrell MD [facility] ER ENDOCRINOLOGY [place], [place] [address] (Wo rk) documented as of this encounter Visit Diagnoses Diagnosis Intracranial hemorrhage Unspecified intracranial hemorrhage documented in this encounter Care Teams Engineering Operator Relationship Specialty Start Date End Date France Lam MD PCP - General 05/02/13 02/04/20 [address] [place] [address] documented as of this encounter
--- OUTSIDE RECORDS SUMMARY | 2022-05-30 11:03 | XMS_ITS | Encounter Summary ---
:1945 Author Organization [facility] [place] [address] Care Team Providers Name Role Phone France Lam MD Primary Care Provider Encounter Details Date Type Department Care Team Description 11/30/2019 Orders Only Cardiology [facility] [place] [address] Social History Tobacco Use Types Packs/Day Years Used Date Smoking Tobacco: Every Day Cigarettes 0.5 Cigars Sex Assigned at Date Recorded Not on file documented as of this encounter Plan of Treatment Upcoming Encounters Date Type Specialty Care Team Description 06/30/2022 Office Visit Endocrinology EchtAlan MD [facility] ER ENDOCRINOLOGY [place], [place] [address] (Wo rk) documented as of [...] fajardo ? (Age): 1945(74y) Med Rec#: ? [id number] ?Sex: ?M ? Site Loc: ? Ht / Wt: ??(cm)/ (kg) ? Pt. Loc: ? Study Date: ?? 11/29/2019 ?Pt. Type: Tape: ? Referring: Faustino Garduno Reading: Dawit Mejia ([id number]) Student Success Counselor: USNereyda [employer] Supervisor: Cedric Eric ([id number]) Interpreting Fellow: Cedric Eric ([phone]) Diagnosis: SUMMARY: 1. Limited bedside echocardiogram perfor med by [employer] dean cardiology teacher for hypotension following inferior STEMI . [...] ? Mid-Inferior ?Akinetic ? Mid-Inferoseptal ?Hypokinetic ? [place]-Septal ? Normal ? [place]-Anterior ? Normal ? [place]-Lateral ?Normal ? [place]-Inferior ? Hypokinetic ? [place]-Tip ?Normal ? This report has been electronically sign ed by: _ Dawit Sebastian. MD Roberto ? 11/30/2019 12: 53:59 Images reviewed and interpretation verasutin casey [facility] Cardiac Ultrasound Laboratory Procedure Note Dawit Mejia MD - 11/30/2019Formatti ng of this note might be different from the original. Procedure: Transthoracic Echocardiogram Patient: domenica ACOSTA(Age): 6(74y) Med Rec#: [id number] Sex: M Site Loc: Ht / Wt: (cm)/ (kg) Pt. Loc: Study Date: 11/29/2019 Pt. Type: Tape: Referring: Faustino Garduno Reading: Daiwt Mejia ([id number]) Student Success Counselor: [employer] Supervisor: Cedric Eric ([id number]) Interpreting Fellow: Cedric Eric ([phone]) Diagnosis: SUMMARY: 1. Limited bedside echocardiogram perfor med by [employer] dean cardiology teacher for hypotension following inferior STEMI . [...] Normal Mid-Posterolateral Akinetic Mid-Inferior Akinetic Mid-Inferoseptal Hypokinetic [place]-Septal Normal [place]-Anterior Normal [place]-Lateral Normal [place]-Inferior Hypokinetic [place]-Tip Normal This report has been electronically sign ed by: _ Dawit Mejia MD 11/30/2019 12:53:59 Images reviewed and interpretation [facility] Cardiac Ultrasound Laboratory Unknown ECHO ORDERABLES documented in this encounter Visit Diagnoses Not on filedocumented in this encounter Care Teams Hat Designer Relationship Specialty Start Date End Date France Lam MD PCP - General 05/02/13 02/04/20 [address] [place] [address] documented as of this encounter
--- OUTSIDE RECORDS SUMMARY | 2022-05-30 11:03 | XMS_ITS | Encounter Summary ---
:1945 Author Organization [facility] [place] [address] Care Team Providers Name Role Phone France Lam MD Primary Care Provider Reason for Referral Consultation (Routine) - Specialty Diagnoses / Procedures Referred By Contact Refer red To Contact Cardiology Diagnoses Acute ST elevation myocardial infarction (STEMI) of inferior wall Darrell Glasgow MD [facility] [place] [address] Referral ID Status Reason Start Date Expiration Date Visits V isits Requested Authorized [id number] Consult, 12/08/2019 06/05/2020 1 1 Test & Treat Consultation (Routine) - Closed Specialty Diagnoses / Referred By Contact Referred To Contact Procedures Cardiac Rehabilitation Diagnoses ST elevation myocardial infarction involving right coronary artery Gretchen Yoon, Cardiac Rehab, [address] [place] [phone] Fax: Referral ID Status Reason Start Date Expiration Date Visits V isits Requested Authorized [id number] Closed Consult, 12/08/2019 06/05/2020 36 36 Test & Treat Reason for Visit Auth/Cert Specialty Diagnoses / Procedures Referred By Contact Refer red To Contact Diagnoses STEMI (ST elevation myocardial infarction) STEMI Procedures CARDIAC CATHETERIZATION Referral ID Status Reason Start Date Expiration Date Visits Requ ested Visits Authorized [id number] 1 1 Encounter Details Date Type Department Care Team Description 11/29/2019 - Hospital Encounter Cardiac Special YoungBarbra MD [facility] [place] [address] ST elevation myocardial infarction invol ving left main coronary artery; 12/08/2019 Care Unit Paris Lozano MD [facility] [place] [address] ST elevation myocardial infarction invol ving right coronary artery; [facility] Edema of upper extremity; Hospital Intracranial hemorrhage; [facility] Paroxysma l atrial fibrillation; Drive Acute pulmonary embolism, un specified pulmonary embolism type, unspecified whether acute cor pulmonale present; [place], [place] Acute ST elevat ion myocardial infarction (STEMI) of inferior wall [id number] Social History Tobacco Use Types Packs/Day Years [...] Attending Physician: Paris Lagos MD Discharge Physician: Rkii Stevens MD Follow-up Recommendations for Providers: - Anticoagulation/antiplatelet recommendations: - For next 1 month recommend triple therapy (ASA 81mg, Plavix, apixaban) given STEMI and PE and Afib - From 1 month to 12 months: Apixaban and Plavix only (hold ASA) - From 12 months on: antiplatelet therapy at discretion of assistant maintenance manager - Repeat TTE in 3 months to reassess LV function - Repeat BMP in 1-2 weeks given recent start lisinopril - Referred to lipid clinic for consideration of PCSK-9 inhibitor given STEMI with intolerance of statins - Started on amiodarone this admission for recurrent rapid atrial flutter with rates ~170, recommendcontinued assessment of necessity of rhythm control strategy with assistant maintenance manager - Amiodarone monitoring recommendations as below - [...] the [facility] Refrigeration Brazer/Solderer . Issues after hours and on weekends [...] priority for the procedure was Emergent. The [facility] indication for the procedure was STEMI [...] Angel Luis Barboza MD, [facility] ([phone]), at 11/30/2019 12:[address] Head wo [...] signed by: Angel Luis [facility] ([phone]), at 11/30/2019 5:[address] Angiogram [place] [facility] [place] (Exam End: 11/30/2019 4:36 PM) Impression Head CT: Stable hemorrhage in the region of the left optic tract. CTA: Negative exam. No abnormal vasculature in the area of hemorrhage. Thank you for letting us participate in the care of this patient. For questions regarding this report, please contact the number below. Electronically signed by: Angel Luis Barboza MD, [facility] ([phone]), at 11/30/2019 5:04 PM MRI Brain wo [...] Angel Luis Barboza MD, [facility] ([phone]), at 12/01/2019 8:02 PM XR Chest One [...] ??? Penicillins Pt doesn't remember reaction ??? Wshyqpf-Wdn-Kpf Reductase Inhibitors Stiff neck, upset stomach, back [...] FOR ONE MONTH AND THEN STOP. Your assistant maintenance manager may tell you to start this medication again after one year. Clopidogrel (Plavix) 75 mg daily - This medication will help prevent clots from forming in your blood, which will help protect the stent that was placed in your heart vessel. TAKE THIS FOR ONE YEAR ANDTHEN DISCUSS WITH YOUR CD MANUFACTURING SUPERVISOR WHETHER TO STOP. Amiodarone 400mg twice [...] follow up: Your primary care provider and assistant maintenance manager will manage your blood thinner (apixaban). You do not need lab monitoring of this medication. Diet: Please consume a healthy diet low in cholesterol Follow up Appointments: 12/10/2019 at 3:10PM with PCP Angel Luis Lott Future Appointments Date Time Provider Department Center 12/23/2019 1:30 PM Alfreda Salas APRN [facility] [id number] 12/26/2019 9:40 AM Merlin Sanchez MD [facility] CARD 4A [facility] 12/30/2019 3:40 PM Gretchen Yoon MD [address] Future Appointments and Orders Future Appointments and Orders Future Appointments Provider Department Dept Phone 12/23/2019 1:30 PM Alfreda Salas APRN Neurosurgery at [facility] Arrive at: Home [phone] Please do not come in for this visit. Your provider will call you at the number you provided. 12/26/2019 9:40 AM Merlin Sanchez MD Cardiology at [facility] Arrive at: Home [phone] Please do not come in for this visit. Your provider will call you at the number you provided. 12/30/2019 3:40 PM Gretchen Yoon MD Cardiology at [facility] Arrive at: Home [phone] Please do not come in for this visit. Your provider will call you at the number you provided. Future Orders Complete By Expires Referral to Cardiac Rehab [[id number] Custom] As directed Process Instructions: If no progress note charted, please enter Clinical details in comments. Scheduling Instructions: Questions: My question or request is: STEMI. Cardiac rehab at [facility] Referral to [facility] [REF43 Custom] As directed Process Instructions: If no progress note charted, please enter Clinical details in comments. Scheduling Instructions: Questions: My question or request is: patient with inferior stemi with history of statin allergy (rash) - please evaluate for psck9 inhibitor. Referral to Home Health - at DISCHARGE [WSY5958 CPT(R)] As directed Process Instructions: Scheduling Instructions: Comments: DOCUMENTATION FOR VNA SERVICES PATIENT'S LOCATION: Angel Luis Corcoran [address] [address] (home) Chief Legal Officer's Name: Self In discussion with the attending physician, it is certified that this patient is under his/her care and that MD, or an PERSONAL INJURY LITIGATION PARALEGAL, BRICK OR BLOCK MAKER, or PA who is working directly with him/her, had a ykoq-ae-sqlw encounter that meets the physician wuum-sn-tgvi encounter requirements with this patient on 12/07/2019. [...] for managing ADLs. HOME HEALTH CARE AGENCY: [facility], PHONE: [phone] FAX: [phone] Start of care: 24-48 hours after hospital [...] France Lam MD [address] / [facility] [place] [address] All A agencies which cover the area of patient's residence have been reviewed, either verbally or in writing, and patient/family have chosen the home health care agency noted. Questions: Agency name and contact information: [facility] Patient location post discharge: Home What services are requested: Registered Nurse Physical Therapy Occupational Therapy Start date: Responsible MD post discharge contact info: PCP Your PCP: France Lam MD [phone] For questions regarding this document or issues relating to this hospitalization on the Cardiology Service, please contact your inpatient physician through the [facility] Refrigeration Brazer/Solderer . Issues after hours and on weekends will be handled by the Traffic Controller Cable on-call. Patient Instructions: Neurology Your Diagnosis: Left [...] follow-up appointment in the neurology clinic at [facility]. See below for the appointment time. If you do not have an appointment, you will be called with a time/date for this appointment. ??? Primary Care Provider: Please follow up with your Primary Care Provider [facility] Instructions None Future Appointments and Orders Future Appointments and Orders Future Appointments Provider Department Dept Phone 12/23/2019 1:30 PM Alfreda Salas APRN Neurosurgery at [facility] Arrive at: Home [phone] Please do not come in for this visit. Your provider will call you at the number you provided. 12/26/2019 9:40 AM Merlin Sanchez MD Cardiology at [facility] Arrive at: Home [phone] Please do not come in for this visit. Your provider will call you at the number you provided. 12/30/2019 3:40 PM Gretchen Yoon MD Cardiology at [facility] Arrive at: Home [phone] Please do not come in for this visit. Your provider will call you at the number you provided. Future Orders Complete By Expires Referral to Cardiac Rehab [[id number] Custom] As directed Process Instructions: If no progress note charted, please enter Clinical details in comments. Scheduling Instructions: Questions: My question or request is: STEMI. Cardiac rehab at [facility] Referral to [facility] [REF43 Custom] As directed Process Instructions: If no progress note charted, please enter Clinical details in comments. Scheduling Instructions: Questions: My question or request is: patient with inferior stemi with history of statin allergy (rash) - please evaluate for psck9 inhibitor. Referral to Home Health - at DISCHARGE [[id number] CPT(R)] As directed Process Instructions: Scheduling Instructions: Comments: DOCUMENTATION FOR VNA SERVICES PATIENT'S LOCATION: [address] [address] (home) Chief Legal Officer's Name: Self In discussion with the attending physician, it is certified that this patient is under his/her care and that MD, or an PERSONAL INJURY LITIGATION PARALEGAL, BRICK OR BLOCK MAKER, or PA who is working directly with him/her, had a teep-ma-opfe encounter that meets the physician tekc-hg-oiig encounter requirements with this patient on 12/07/2019. [...] for managing ADLs. HOME HEALTH CARE AGENCY: [facility], PHONE: [phone] FAX: [phone] Start of care: 24-48 hours after hospital [...] MD [address] / [place] [address] All A agencies which cover the area of patient's residence have been reviewed, either verbally or in writing, and patient/family have chosen the home health care agency noted. Questions: Agency name and contact information: [facility] Patient location post discharge: Home What [...] Stevens MD PGY-3, Internal Medicine Cardiology S2, #6575 Associated attestation - Shaka Lagos, Paris Lockett MD - 12/09/2019 4:44 PM EDT Cardiology Attending Discharge Addendum I was the assigned attending assistant maintenance manager for this clinical encounter. For the purposes [...] complications include novel onset, paroxysmal atrial fibrillation [[id number]: 5] & L-sided diplopia with potential hemineglect [...] contact information: Paris Matt MD MPH [address] [address] (office); Pager #[phone] Email: [email or web address] documented in this encounter Discharge Instructions Patient [...] FOR ONE MONTH AND THEN STOP. Your assistant maintenance manager may tell you to start this medication again after one year. Clopidogrel (Plavix) 75 mg daily - This medication will help prevent clots from forming in your blood, which will help protect the stent that was placed in your heart vessel. TAKE THIS FOR ONE YEAR ANDTHEN DISCUSS WITH YOUR CD MANUFACTURING SUPERVISOR WHETHER TO STOP. Amiodarone 400mg twice [...] follow up: Your primary care provider and assistant maintenance manager will manage your blood thinner (apixaban). You do not need lab monitoring of this medication. Diet: Please consume a healthy diet low in cholesterol Follow up Appointments: 12/10/2019 at 3:10PM with PCP Angel Luis Lott Future Appointments Date Time Provider Department Center 12/23/2019 1:30 PM Alfreda Salas APRN [facility] [id number] [facility] 12/26/2019 [...] [facility] Arrive at: Home [phone] Please do not come in for this visit. Your provider will call you at the number you provided. 12/26/2019 9:40 AM Merlin Sanchez MD Cardiology at [facility] Arrive at: Home [phone] Please do not come in for this visit. Your provider will call you at the number you provided. 12/30/2019 3:40 PM Gretchen Yoon MD Cardiology at [facility] Arrive at: Home [phone] Please do not come in for this visit. Your provider will call you at the number you provided. Future Orders Complete By Expires Referral to Cardiac Rehab [[id number] Custom] As directed Process Instructions: If no progress note charted, please enter Clinical details in comments. Scheduling Instructions: Questions: My question or request is: STEMI. Cardiac rehab at [facility] Referral to [facility] [REF43 Custom] As directed Process Instructions: If no progress note charted, please enter Clinical details in comments. Scheduling Instructions: Questions: My question or request is: patient with inferior stemi with history of statin allergy (rash) - please evaluate for psck9 inhibitor. Referral to Home Health - at DISCHARGE [[id number] CPT(R)] As directed Process Instructions: Scheduling Instructions: Comments: DOCUMENTATION FOR VNA SERVICES PATIENT'S LOCATION: [address] [address] (home) Chief Legal Officer's Name: Self In discussion with the attending physician, it is certified that this patient is under his/her care and that MD, or an PERSONAL INJURY LITIGATION PARALEGAL, BRICK OR BLOCK MAKER, or PA who is working directly with him/her, had a bkbw-uj-mimp encounter that meets the physician yaqo-xi-mhcq encounter requirements with this patient on 12/07/2019. [...] for managing ADLs. HOME HEALTH CARE AGENCY: [facility], PHONE: [phone] FAX: [phone] Start of care: 24-48 hours after hospital [...] MD [address] / [place] [address] All A agencies which cover the area of patient's residence have been reviewed, either verbally or in writing, and patient/family have chosen the home health care agency noted. Questions: Agency name and contact information: [facility] Patient location post discharge: Home What services are requested: Registered Nurse Physical Therapy Occupational Therapy Start date: Responsible MD post discharge contact info: PCP Your PCP: France Lam MD [phone] For questions regarding this document or issues relating to this hospitalization on the Cardiology Service, please contact your inpatient physician through the [facility] Refrigeration Brazer/Solderer . Issues after hours and on weekends will be handled by the Traffic Controller Cable on-call. Patient Instructions: Neurology Your Diagnosis: Left [...] follow-up appointment in the neurology clinic at [facility]. See below for the appointment time. [...] consulted in the interim. Vikash Rodriguez Pager: [phone] Paris Dodd MD - 12/08/2019 8:57 AM [...] complications include novel onset, paroxysmal atrial fibrillation [[id number]: 5] & L-sided diplopia with potential hemineglect [...] consulted in the interim. Vikash Rodriguez Pager: [phone] Paris Dodd MD - 12/07/2019 9:55 AM [...] complications include novel onset, paroxysmal atrial fibrillation [TLO7GZ7ACAF: 5] & L-sided diplopia with potential hemineglect [...] complications include novel onset, paroxysmal atrial fibrillation [XJX7TC8NZVC: 5] & L-sided diplopia with potential hemineglect [...] complications include novel onset, paroxysmal atrial fibrillation [IYH2JE6CUKQ: 5] & L-sided diplopia with potential hemineglect [...] today; additional complications include paroxysmal atrial fibrillation [BQA1YR1QJRM: 4] c/b possible cardioembolic stroke, ICH from [...] length from neck/greatest diameter to back wall: CYMRAES 91, CAU 13: 19 mm CORTES 1, [...] a non-culprit artery. S/P DESx3 in the bwrnnhgc-qb-lduatu RCA. Aspiration thrombectomy performed, and integrellin bolus [...] complications include novel onset, paroxysmal atrial fibrillation [RKL0GF7MLKF: 5] & L-sided diplopia with potential hemineglect [...] R occipital cardioembolic stroke #Paroxysmal Afib with WJ7EDMIO0K score of 5 #New segmental bilateral PEs [...] Glasgow MD PGY1, Internal Medicine Cardiology S2, #8018 Associated attestation - Paris Dodd MD - 12/05/2019 2:59 PM EDT I was the assigned attending assistant maintenance manager for this clinical encounter. For the purposes [...] 12/04/2019 10:36 AM EDT Office of Care Management(OCM)/Facilities Maintenance Engineer(CM)/Discharge Planning Service: Cardiology S2 team CM Bernie Alexander,RN,BSN,MA,ACM pgr [phone] Reviewed record and in Cardiology Rounds with MD team,CMs, enterer, HEALTHCARE BUSINESS ANALYST. Pt is anticipated ready for d/c later [...] complications include novel onset, paroxysmal atrial fibrillation [FQP7ST9RIHJ: 4] & L-sided diplopia with potential hemineglect [...] a non-culprit artery. S/P DESx3 in the gpmtvmjd-ms-uakova RCA. Aspiration thrombectomy performed, and integrellin bolus [...] complications include novel onset, paroxysmal atrial fibrillation [SVY1BI1LDLH: 5] & L-sided diplopia with potential hemineglect [...] R occipital cardioembolic stroke #Paroxysmal Afib with EA5POWPD4Y score of 5 - No anticoagulation for [...] Glasgow MD PGY1, Internal Medicine Cardiology S2, #5827 I have seen the patient and reviewed [...] in my clinic. Gretchen Yoon MD Pager [phone] Derian Pascual RN - 12/03/2019 9:29 AM [...] Discharge: None Electronically signed: Derian Pascual RN, Facilities Maintenance Engineer Pgr: [phone] 12/03/2019 9:29 AM Gretchen [...] complications include novel onset, paroxysmal atrial fibrillation [VEW7MZ7HAWL: 4] & L-sided diplopia with potential hemineglect [...] a non-culprit artery. S/P DESx3 in the enyhinxz-wn-cdwjgy RCA. Aspiration thrombectomy performed, and integrellin bolus [...] complications include novel onset, paroxysmal atrial fibrillation [PPU5ZE4UMDS: 5] & L-sided diplopia with potential hemineglect [...] [facility]. Patient voiced strong will to quit smoking now, understood that we have resources available for help. Plan [P]: --Neurologic-- # Concern for Left-Sided Diplopia, r/o Hemineglect # Concern for CVA, last-known well 11/29/19 - MRI showed possible cardioembolic stroke #Afib with JF3MPSII2R score of 5 - Stroke Team Consulted; [...] Anticoagulation/Arrhythmia # Novel Onset, Paroxsymal Atrial Fibrillation [YPP2YR0DTRU: 5] - Hold off anticoagulation for at [...] Glasgow MD PGY1, Internal Medicine Cardiology S2, #4666 I have seen the patient and reviewed the resident's above history and I agree with the details as written. The assessment and plan were formulated in discussion with me and I agree with them as documented. Gretchen Yoon MD Pager [phone] Raul Hein RN - 12/03/2019 5:55 AM [...] Negative mcL Appearance UA Clear Clear Spec Bascom UA 1.026 1.006 - 1.030 Color UA [...] PGY3 Neurology Resident 12/01/2019 Vascular Neurology Pager [phone] Neurology Attending Attestation I evaluated the patient [...] as medical provider deems appropriate. Consider MACHINE OILER consult for full evaluation and diet recommendations. [...] complications include novel onset, paroxysmal atrial fibrillation [PDE2EZ9RHEK: 4] & L-sided diplopia with potential hemineglect [...] a non-culprit artery. S/P DESx3 in the euymwazd-pl-aiisix RCA. Aspiration thrombectomy performed, and integrellin bolus [...] complications include novel onset, paroxysmal atrial fibrillation [LTA7GO0QDDA: 5] & L-sided diplopia with potential hemineglect [...] Anticoagulation/Arrhythmia # Novel Onset, Paroxsymal Atrial Fibrillation [VNC9GS7DFRY: 5] - Hold off anticoagulation - pending [...] Glasgow MD PGY1, Internal Medicine Cardiology S2, #4505 I have seen the patient and reviewed [...] the ICU team. Gretchen Yoon MD Pager [phone] Natalia Claros APRN - 12/02/2019 8:38 AM [...] - We are signing off. Please page [phone] with any questions or concerns. For questions please call [facility] pager [phone] Natalia Claros APRN 12/02/2019 8:38 AM Clinical Documentation Improvement: Active Hospital Problems Diagnosis ??? Acute ST elevation myocardial infarction (STEMI) of inferior wall ??? Intracranial hemorrhage ??? Hyperlipidemia ??? Tobacco abuse ??? Claudication from peripheral vascular disease, left Resolved Hospital Problems No resolved problems to display. Tello Hsu, ASSISTANT WOMEN'S SOCCER COACH - 12/02/2019 2:06 AM EDT 12/01/192009 Oxygen [...] Scan in afternoon. Upon arrival [facility] in [facility] placed on low flow NC [...] complications include novel onset, paroxysmal atrial fibrillation [ZOC9HA1ZYOO: 4] & L-sided diplopia with potential hemineglect for which CVA evaluationto be pursued. Active Problems/Subjective: - 11/28: admitted for inferior STEMI, RV failure requiring pressor - got lytics, aspirin and plavix load, heparin gtt, and eptifibatide. 3 MACARIO stents to RCA. [place] cath - low wedge & CVP so [...] a non-culprit artery. S/P DESx3 in the rkiknkhh-nd-tcgzbc RCA. Aspiration thrombectomy performed, and integrellin bolus [...] complications include novel onset, paroxysmal atrial fibrillation [VPQ0GC5MBQJ: 4] & L-sided diplopia with potential hemineglect [...] Anticoagulation/Arrhythmia # Novel Onset, Paroxsymal Atrial Fibrillation [WGX7PM0PERU: 4] - Obtain: TTE - Pending CVA [...] MD, PGY1 PGY3, Internal Medicine Cardiology S2, #6776 I have seen the patient and reviewed [...] down the line. Gretchen Yoon MD Pager [phone] ?? Gretchen Yoon MD Pager [phone] Natalia Claros APRN - 12/01/2019 1:33 AM [...] per primary team For questions please call [facility] pager [phone] Natalia Claros APRN 12/01/2019 7:42 AM Clinical Documentation Improvement: Active Hospital Problems Diagnosis ??? Acute ST elevation myocardial infarction (STEMI) of inferior wall ??? Intracranial hemorrhage ??? Hyperlipidemia ??? Tobacco abuse ??? Claudication from peripheral vascular disease, left Resolved Hospital Problems No resolved problems to display. Tello Hsu, ASSISTANT WOMEN'S SOCCER COACH - 11/30/2019 8:44 PM EDT Respiratory Therapy [...] contact the number below. Electronically signed by: ALBA Becker [facility] ([phone]), at 11/30/2019 8:32 PM ASSESSMENT: Patient had [...] EDT Narrative:Visited in response to request for Gang Plank Workman services. Pt was awake, alert, oriented and in bed. Assessment:Patient coping positively with stresses of illness/hospitalization at this time. Pt says that he is hoping to get better and pt is living with and has children and grandchildren. Pt haspurpose of life and has reason to get getter and to be with family. Outcome: Provided emotional and spiritual support and encouraging presence. Gang [employer]ank Workman services accepted.Conversation to build trusting relationship.Provided pastoral [...] complications include novel onset, paroxysmal atrial fibrillation [UVJ5TC0BVQN: 4] & L-sided diplopia with potential hemineglect for which CVA evaluationto be pursued. Active Problems/Subjective: - Overnight, CVP < 12 for which a total of 1 L IVF provided - Today AM, patient complains of subjectively reported, left-sided hemineglect with floaters and diplopia [see: exam]. - Otherwise, c/o neck pain 2/2 R IJ [place] & L radial A line. Otherwise, denies [...] a non-culprit artery. S/P DESx3 in the oprwblii-sh-qhjtut RCA. Aspiration thrombectomy performed, and integrellin bolus [...] complications include novel onset, paroxysmal atrial fibrillation [[id number]: 4] & L-sided diplopia with potential hemineglect [...] Anticoagulation/Arrhythmia # Novel Onset, Paroxsymal Atrial Fibrillation [[id number]: 4] - Obtain: TTE to confirm rhythm [...] MD, PGY3 PGY3, Internal Medicine Cardiology S2, #[id number] I have seen the patient and reviewed [...] down the line. Gretchen Yoon MD Pager [phone] Paola Capps RN - 11/30/2019 6:57 AM EDT PT still requiring 4 of levo, several attempts to titrate down (maps in 70;s) But maps would drop toless than 65. Pt very restless in bed Raising and lowering head denies pain . Integrillin stopped ok0011 when bottle complete , urine tea colored [...] PCP: France Lam MD PCP phone #: [phone] Hydraulic Repairer: None ID/Chief Complaint: Chest pain History of [...] up to 10mcg/min. He was transferred to [facility] after the cath procedure. Bedside [...] ??? Penicillins Pt doesn't remember reaction ??? Kekabgc-Hio-Veb Reductase Inhibitors Stiff neck, upset stomach, back pain Family History: Mother: Father: [place] 2 Uncles with MIs Social History: Tobacco: Current active smoker 1 ppd. 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 Vitals: Last value Range last [...] in the last 7068 hours. Invalid input(s): LAKUNGUZBQW1S Heme: No results for input(s): LDH, HAPTOGLOBIN, [...] Admit to Cardiology, S2 Team Pager # [phone] #Inferior STEMI, LEYLA 149 - Resolving EKG [...] with MACARIO x3. Gretchen Yoon MD Pager [phone] documented in this encounter Procedure Notes Juventino [...] to the planned procedure. Hand Hygiene: The train electronic technician did perform hand hygiene prior to [...] a suspected line-associated infection. Location of Procedure: [facility] Risks and Benefits: The risks [...] to the planned procedure. Hand Hygiene: The train electronic technician did perform hand hygiene prior to [...] side:right An Introducer (PSI Kit) was used. [place]. Insertion Side: right. Insertion Site: internal jugular. Catheter Details: Number of Lumens: 1 Catheter Type: heparin-coated The line was placed over a guidewire. Confirmation of Venous Placement: Venous placement was confirmed by transducing the pressure. Introducer Insertion Attempts: 1 Comments: Floating the [place] Catheter Attempts: 1 Comments: Sterile Dressing: Biopatch [...] better pt back in SR. Please page [phone] for any more cares or concerns Plan [...] complications include novel onset, paroxysmal atrial fibrillation [[id number]: 5]& L-sided diplopia with potential hemineglect for [...] Total Evaluation Minutes, Occupational Therapy: 10 Pager: [phone] FRANCINE Nuñez Occupational Therapy Rehabilitation Department Plan [...] conduction defect Plan of Care - Barbara Bladwin, PT - 12/04/2019 8:50 AM EDT Physical [...] complications include novel onset, paroxysmal atrial fibrillation [[id number]: 5] & L-sided diplopia with potential hemineglect [...] hand rails). Baseline Mobility: Independent. Drives. 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 Time IN / OUT: 0201-6382 Total Evaluation Minutes, Physical Therapy: 15(gtx1) Barbara Baldwin, PT Pager: [phone] Physical Therapy Inpatient Rehabilitation Department Plan of [...] he receives all he needs through the [facility]. Consult refused. Romain Tran, MSN, RN-, [facility] [employer] Job Titles [facility] Pager #[phone] Plan of Care - Romain Oglesby OT [...] complications include novel onset, paroxysmal atrial fibrillation [[id number]: 5] & L-sided diplopia with potential hemineglect [...] and measurable assessment of functional outcome. Pager: [phone] ROMAIN OGLESBY OT 12/03/2019 Occupational Therapy Rehabilitation [...] in an outpatient cardiac rehabilitation program at [facility] was discussed. Patient agrees to a referral to this program. His has been a cardiac rehab patient at [facility] and he is familiar with [...] complications include novel onset, paroxysmal atrial fibrillation [[id number]: 5] & L-sided diplopia with potential hemineglect [...] hand rails). Baseline Mobility: Independent. Drives. 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 Time IN / OUT: 0661-1689 Total Evaluation Minutes, Physical Therapy: 25(eval, gtx1) Barbara Baldwin, PT Pager: [phone] Physical Therapy Inpatient Rehabilitation Department Consult Note [...] Please contact JOHANNA NOBLES RN on pager [phone] or the wound care team at [phone] or pager [phone] skin and wound care concerns or questions. [...] Sal[place] would be surrogate decision maker per [place] surrogate decision making law. Any patient receiving carspousee at [facility] must abide by [place] law. The hierarchy for surrogate decisionmaking is: [...] (i) The agent with financial power of litigation attorney associate or a conservator appointed in accordance with [...] Insurance: N/A Prescription Coverage: Yes Preferred Pharmacy: [place], [place] Other: No Primary Care Provider: France Lam MD [phone] Patient/Caregiver Goals of Treatment: Return home Potential Needs for Transition of Care: Rehab/SNF: Based on discussions with the multi-disciplinary healthcare team, the patient would benefit from SNF level of care at discharge. ?? I have met with the patient to discuss discharge planning needs. I have provided the [facility], Officeof Care Management letter from the Director Orange pertaining to rehab referrals. I have also [...] patient [facility]: ?? [facility] [address] [place] [id number] ?? [address]. [address] , [place] [address] Note routed to Salicylic Acid Blender who will communicate referrals to facilities and provide any required information. Home Health: If therapies recommend home w/ VNA, the patient has been provided a list of Home Health Agencies/DME vendors which serve their preferred geographic area. A letter describing our affiliations was reviewed with them and they were educated about their right to choose where referrals are placed. Patient requests referral to [facility] [employer] PHONE: [phone] FAX: [phone] Referral routed to the Salicylic Acid Blender for matching with agency/vendor and to provide [...] Insured w/ Medicare. Gets medications filled at [facility] in [place], [place]. Son to transport at discharge Plan: Discharge dispo depending on patient's physical recovery; SNF vs home w/ VNA. A member of the Care Management team will continue to monitor progress, follow for continuity of care and assist with transition of care planning. Derian Pascual RN Pager: [phone] Plan of Care - Estefani Baeza RN [...] ??? Penicillins Pt doesn't remember reaction ??? Sdsxhdy-Luc-Apy Reductase Inhibitors Stiff neck, upset stomach, back [...] noncontrast head CT and CT of the [place] at 1600 hrs. We will [...] ??? Penicillins Pt doesn't remember reaction ??? Xqnyrxz-Ipd-Amj Reductase Inhibitors Stiff neck, upset stomach, back [...] L Elbow flexion 5/5 R, 5/5 L Leather Whitener LE: 5/5 R, 5/5 L Hip flexion [...] PGY3 Neurology Resident 11/30/2019 Vascular Neurology Pager [phone] Standard [facility] [...] as medical provider deems appropriate. Consider MACHINE OILER consult for full evaluation and diet recommendations. [...] Afib admitted s/p thrombolysis and Cath-Stent to [facility] who developed R sided [...] hours. 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 Severe diffuse disease in the distal vessel. Discrete LCX stenosis in a non-culprit artery. S/P DESx3 in the yqqkcusx-ju-wcxwfz RCA. Aspiration thrombectomy performed, and integrellin bolus x2+ infusion. Nicardipine given during case due to intermittent sluggish flow. Complications: None documented in this encounter Plan of Treatment Upcoming Encounters Date Type Specialty Care Team Description 06/30/2022 Office Visit Endocrinology Alan Terrell MD [facility] ENDOCRINOLOGY [place], [place] [address] (Wo rk) Scheduled Referrals Name [...] are i n the results section. CT [facility] [place] [facility] STAT 11/30/2019 4:36 Res [...] athologist Signature Potassium 3.9 3.5 - 5.0 [facility] mmol/L [facility] Comment: Please note: ??Patients [...] Organization Address City/State/ZIP Code Phon e Number [place] [id number] (ABNORMAL) Hemogram (12/08/2019 12:39 PM EDT) Analysis Performed At Patho logist Time Signature WBC 9.9 (H) 4.0 - 9.5 [place] x10(3)/[facility] LABORATORY RBC 4.51 (L) 4.58 - [place] 5.54 [facility] x10(6)/[facility] LABORATORY Hemoglobin 13.0 (L) 13.7 - [place] 16.5 gm/dL [facility] Hematocrit 40.5 40.5 - [place] 48.5 % [facility] MCV 89.8 82.9 - [place] 93.1 [facility] LABORATORY MCH 28.8 27.5 - [place] 32.1 pg [facility] MCHC 32.1 32.0 - [place] 35.7 gm/dL [facility] Platelets 214 145 - 357 [place] x10(3)/[facility] LABORATORY RDWSD 49.2 (H) 36.0 - [place] 45.0 [facility] LABORATORY RDWCV 15.1 (H) 11.4 - [place] 13.8 % [facility] MPV 12.1 7.6 - 12.9 [place] [facility] LABORATORY nRBC % Auto 0.0 % [facility] nRBC Abs Auto 0.000 0.000 - [place] 0.000 [facility] x10(3)/[facility] LABORATORY Specimen Anatomical Collection Method Collection Time Receive d Time (Source) Location / / Volume Laterality Blood specimen 12/08/2019 12:39 0 (specimen) PM EDT 12:47 PM EDT Resulting Agency Comment Spec In Lab Gretchen Yoon MD HEMATOLOGY ORDERABLES Performing Organization Address City/[facility]/ZIP Code Phon e Number [address] Hepatic Function Panel (12/08/2019 6:28 AM EDT) P athologist Signature Total Protein 6.6 6.1 - 8.0 [facility] gm/dL [facility] Albumin 3.2 3.2 - 5.2 [facility] gm/dL [facility] AST 18 0 - 39 [facility]/L [facility] ALT 13 0 - 55 [facility] unit/L [facility] Alk Phos 64 40 - 130 [facility] Total 0.4 0.2 - 1.3 [facility] Bilirubin mg/dL [facility] Bili, Direct 0.1 0.0 - 0.3 [facility] mg/dL [facility] Specimen Anatomical Collection Method Collection Time Receive d Time (Source) Location / / Volume Laterality Blood specimen Venous Draw / 12/08/2019 6:28 AM 2019 6:36 (specimen) Unknown EDT AM EDT Resulting Agency Comment Spec In Lab Riki Stevens MD CHEMISTRY ORDERABLES Performing Organization Address City/State/ZIP Code Phon e Number [place], [place] [id number] [place] [address] (ABNORMAL) TSH (12/08/2019 6:28 AM EDT) P athologist Signature TSH 5.27 (H) 0.27 - 4.20 [place] [facility] mcIU/mL [facility] Specimen Anatomical Collection Method Collection Time Receive d Time (Source) Location / / Volume Laterality Blood specimen Venous Draw / 12/08/2019 6:28 AM 2019 6:36 (specimen) Unknown EDT AM EDT Resulting Agency Comment Spec In Lab Darrell Glasgow MD CHEMISTRY ORDERABLES Performing Organization Address City/State/[place] [address] Potassium (12/08/2019 6:28 AM EDT) P athologist Signature Potassium 4.2 3.5 - 5.0 [facility] mmol/L [facility] Comment: Please note: ??Patients [...] Lagos MD CHEMISTRY ORDERABLES Performing Organization Address City/[facility]/[place] [address] (ABNORMAL) Differential, Automated (12/08/2019 12:43 AM EDT) Patholo gist Method Time Signature Neutrophils % 60.7 % [facility] Neutr Abs (ANC) 6.81 (H) 1.70 - [facility] 6.10 [facility] x10(3)/[facility] LABORATORY Lymphocytes % 23.4 % [facility] Lymphocytes Abs 2.6 0.9 - 3.2 [facility] x10(3)/[facility] LABORATORY Monocytes % 10.0 % [facility] Monocyte Abs 1.1 (H) 0.3 - 0.9 [facility] x10(3)/[facility] LABORATORY Eosinophils % 3.7 % [facility] Eosinophils Abs 0.4 0.0 - 0.4 [facility] x10(3)/[facility] LABORATORY Basophils % 1.2 % [facility] Basophils Abs 0.1 0.0 - 0.1 [facility] x10(3)/[facility] LABORATORY Immature Gran % 1.00 % [facility] Comment: Immature granulocytes(IG's)percentage an [...] Organization Address City/State/ZIP Code Phon e Number [place] [id number] (ABNORMAL) Hemogram (12/08/2019 12:43 AM EDT) Analysis Performed At Patho logist Time Signature WBC 11.2 (H) 4.0 - 9.5 [facility] x10(3)/[facility] LABORATORY RBC 4.46 (L) 4.58 - [facility] 5.54 [facility] x10(6)/[facility] LABORATORY Hemoglobin 13.1 (L) 13.7 - [facility] 16.5 gm/dL [facility] Hematocrit 40.5 40.5 - [facility] 48.5 % [facility] MCV 90.8 82.9 - [facility] 93.1 [facility] LABORATORY MCH 29.4 27.5 - [place] [facility] 32.1 pg [facility] MCHC 32.3 32.0 - [facility] 35.7 gm/dL [facility] Platelets 215 145 - 357 [facility] x10(3)/[facility] LABORATORY RDWSD 49.8 (H) 36.0 - [place] [facility] 45.0 [facility] LABORATORY RDWCV 15.2 (H) 11.4 - [facility] D[facility] 13.8 % [facility] LABORATORY MPV 12.3 7.6 - 12.9 [facility] LABORATORY nRBC % Auto 0.0 % [facility] nRBC Abs Auto 0.000 0.000 - [place] [facility] 0.000 [facility] x10(3)/[facility] LABORATORY Specimen Anatomical Collection Method Collection Time Receive d Time (Source) Location / / Volume Laterality Blood specimen 12/08/2019 12:43 0 (specimen) AM EDT 12:52 AM EDT Resulting Agency Comment Spec In Lab Riki Stevens MD HEMATOLOGY ORDERABLES Performing Organization Address City/State/ZIP Code Phon e Number [address] Magnesium (12/08/2019 12:43 AM EDT) P athologist Signature Magnesium 1.01 0.69 - 1.07 [facility] mmol/L [facility] LABORATORY Specimen Anatomical Collection Method Collection Time Receive d Time (Source) Location / / Volume Laterality Blood specimen 12/08/2019 12:43 0 (specimen) AM EDT 12:52 AM EDT Resulting Agency Comment Spec In Lab Gretchen Yoon MD CHEMISTRY ORDERABLES Performing Organization Address City/State/ZIP Code Phon e Number [address] (ABNORMAL) BMP w/fasting Glucose (12/08/2019 12:43 AM EDT) P athologist Signature Glucose 106 (H) 65 - 99 [facility] Fasting mg/dL [facility] Comment: ?Fasting* Glucose Interpretive [...] LABORATORY Creatinine 1.16 0.80 - 1.50 mg/dL [facility] LABORATORY Sodium 134 (L) 135 [...] estions. Chloride 99 98 - 107 mmol/L [facility] CO2 19 (L) 22 - 31 mmol/L [facility] Anion Gap 16 (H) 5 - 15 mmol/L [facility] LABORATORY Calcium 8.9 8.5 - 10.5 mg/dL [facility] LABORATORY Estimated GFR 62 >=60 mL/min/1.73 m?? [facility] Comment: The eGFR was calculated using the CKD-EP I equation. As with all creatinine based estimates of kidney function, eGFR values calculated with the CKD-EPI equation are not accurate in patients wi th acute kidney failure, extremes of body mass or the acutely ill. [email or web address]nkEmpow Studios eGFR 72 >=60 mL/min/1.73 m?? [facility] Comment: The eGFR was calculated using the CKD-EP I equation. As with all creatinine based estimates of kidney function, eGFR values calculated with the CKD-EPI equation are not accurate in patients wi th acute kidney failure, extremes of body mass or the acutely ill. [email or web address]nkf Specimen Anatomical Collection Method Collection Time Receive d Time (Source) Location / / Volume Laterality Blood specimen 12/08/2019 12:43 0 (specimen) AM EDT 12:52 AM EDT Resulting Agency Comment Spec In Lab Gretchen Yoon MD CHEMISTRY ORDERABLES Performing Organization Address [facility]/[place] [address] Heparin (unfractionated) Level (12/08/2019 [...] Lagos MD HEMATOLOGY ORDERABLES Performing Organization Address [facility]/[place] [address] [facility] [address] Potassium (12/07/2019 8:39 PM EDT) athologist Signature Potassium 4.1 3.5 - 5.0 [facility] mmol/L [facility] Comment: Please note: ??Patients [...] Lagos MD CHEMISTRY ORDERABLES Performing Organization Address City/[facility]/[place] [address] Potassium (12/07/2019 4:02 PM EDT) P athologist Signature Potassium 4.0 3.5 - 5.0 [facility] mmol/L [facility] Comment: Please note: ??Patients [...] Yoon MD CHEMISTRY ORDERABLES Performing Organization Address City/[facility] [place] [address] (ABNORMAL) Hemogram (12/07/2019 4:02 PM EDT) Analysis Performed At Patho logist Time Signature WBC 17.4 (H) 4.0 - 9.5 [place] [facility] x10(3)/[facility] LABORATORY RBC 4.58 4.58 - [facility] 5.54 [facility] x10(6)/[facility] LABORATORY Hemoglobin 13.5 (L) 13.7 - [facility] [facility] 16.5 gm/dL [facility] Hematocrit 40.8 40.5 - [place] [facility] 48.5 % [facility] MCV 89.1 82.9 - [place] [facility] 93.1 fL [facility] MCH 29.5 27.5 - [place] [facility] 32.1 [facility] LABORATORY MCHC 33.1 32.0 - [facility] MONAE 35.7 gm/dL [facility] Platelets 238 145 - 357 [facility] x10(3)/[facility] LABORATORY RDWSD 48.8 (H) 36.0 - [place] MONAE 45.0 [facility] LABORATORY RDWCV 15.0 (H) 11.4 - [facility] D[facility] 13.8 % [facility] MPV 12.2 7.6 - 12.9 [facility] LABORATORY nRBC % Auto 0.0 % [facility] nRBC Abs Auto 0.000 0.000 - [place] [facility] 0.000 [facility] x10(3)/[facility] LABORATORY Specimen Anatomical Collection Method Collection Time Receive d Time (Source) Location / / Volume Laterality Blood specimen 12/07/2019 4:02 PM 020 4:08 (specimen) EDT PM EDT Resulting Agency Comment Spec In Lab Gretchen Yono MD HEMATOLOGY ORDERABLES Performing Organization Address City/State/[place] [address] EKG 12 Lead (12/07/2019 [...] (Bezet) Calculated P -12 degrees [facility] [place] Calculated R 10 degrees [facility] [place] Calculated T -138 degrees [facility] [place] INTERPRETATION Supraventricular tachycardia MUSE SYSTEM Low voltage [...] 4.2 3.5 - 5.0 [facility] mmol/L [facility] Comment: Please note: ??Patients [...] Organization Address City/State/[place] [address] Heparin (unfractionated) Level (12/07/2019 [...] Lagos MD HEMATOLOGY ORDERABLES Performing Organization Address City/[facility]/ZIP Code Phon e Number [place] [phone]OS[address] Heparin (unfractionated) Level (12/07/2019 [...] Lagos MD HEMATOLOGY ORDERABLES Performing Organization Address City/[facility]/ZIP Code Phon e Number [address] (ABNORMAL) Differential, Automated (12/07/2019 5:20 AM EDT) Patholo gist Method Time Signature Neutrophils % 62.4 % [facility] Neutr Abs (ANC) 5.46 1.70 - [facility] 6.10 [facility] x10(3)/[facility] LABORATORY Lymphocytes % 20.3 % [facility] Lymphocytes Abs 1.8 0.9 - 3.2 [facility] x10(3)/[facility] LABORATORY Monocytes % 11.0 % [facility] Monocyte Abs 1.0 (H) 0.3 - 0.9 [facility] x10(3)/[facility] LABORATORY Eosinophils % 4.5 % [facility] Eosinophils Abs 0.4 0.0 - 0.4 [facility] x10(3)/[facility] LABORATORY Basophils % 0.9 % [facility] Basophils Abs 0.1 0.0 - 0.1 [facility] x10(3)/[facility] LABORATORY Immature Gran % 0.90 % [facility] Comment: Immature granulocytes(IG's)percentage an [...] Organization Address City/State/[place] [address] (ABNORMAL) Hemogram (12/07/2019 5:20 AM EDT) Analysis Performed At Patho logist Time Signature WBC 8.7 4.0 - 9.5 [facility] x10(3)/[facility] LABORATORY RBC 4.20 (L) 4.58 - [facility] 5.54 [facility] x10(6)/[facility] LABORATORY Hemoglobin 12.3 (L) 13.7 - [facility] 16.5 gm/dL [facility] Hematocrit 37.4 (L) 40.5 - [facility] MONAE 48.5 % [facility] LABORATORY MCV 89.0 82.9 - [facility] 93.1 [facility] LABORATORY MCH 29.3 27.5 - [facility] VILL[place] 32.1 pg [facility] [facility] MCHC 32.9 32.0 - MELINA WHITTENCOCK 35.7 gm/dL [facility] Platelets 181 145 - 357 [facility] x10(3)/[facility] LABORATORY RDWSD 47.7 (H) 36.0 - MELINA WHITTENCOCK 45.0 [facility] LABORATORY RDWCV 14.8 (H) 11.4 - MELINA VILLANUEVACK 13.8 % [facility] MPV 12.3 7.6 - 12.9 [facility] LABORATORY nRBC % Auto 0.0 % [facility] nRBC Abs Auto 0.000 0.000 - MELINA MARSHDOV 0.000 [facility] x10(3)/[facility] LABORATORY Specimen Anatomical Collection Method Collection Time Receive d Time (Source) Location / / Volume Laterality Blood specimen 12/07/2019 5:20 AM 020 5:37 (specimen) EDT AM EDT Resulting Agency Comment Spec In Lab Riki Stevens MD HEMATOLOGY ORDERABLES Performing Organization Address City/[facility]/ZIP Code Phon e Number [address] Magnesium (12/07/2019 5:20 AM EDT) athologist Signature Magnesium 0.89 0.69 - 1.07 [facility] mmol/L [facility] Specimen Anatomical Collection Method Collection Time Receive d Time (Source) Location / / Volume Laterality Blood specimen 12/07/2019 5:20 AM 020 5:37 (specimen) EDT AM EDT Resulting Agency Comment Spec In Lab Gretchen Yoon MD CHEMISTRY ORDERABLES Performing Organization Address City/[facility]/ZIP Code Phon e Number [address] (ABNORMAL) BMP w/fasting Glucose (12/07/2019 5:20 AM EDT) athologist Signature Glucose 100 (H) 65 - 99 [facility] Fasting mg/dL [facility] Comment: ?Fasting* Glucose Interpretive [...] LABORATORY Creatinine 0.83 0.80 - 1.50 mg/dL [facility] Sodium 135 135 - [...] estions. Chloride 101 98 - 107 mmol/L [facility] CO2 20 (L) 22 - 31 mmol/L [facility] Anion Gap 14 5 - 15 mmol/L [facility] Calcium 8.8 8.5 - 10.5 mg/dL [facility] Estimated GFR 87 >=60 mL/min/1.73 m?? [facility] Comment: The eGFR was calculated using the CKD-EP I equation. As with all creatinine based estimates of kidney function, eGFR values calculated with the CKD-EPI equation are not accurate in patients wi th acute kidney failure, extremes of body mass or the acutely ill. [email or web address]f eGFR 101 >=60 mL/min/1.73 m?? [facility] Comment: The eGFR was calculated using the CKD-EP I equation. As with all creatinine based estimates of kidney function, eGFR values calculated with the CKD-EPI equation are not accurate in patients wi th acute kidney failure, extremes of body mass or the acutely ill. [email or web address]f Specimen Anatomical Collection Method Collection Time Receive d Time (Source) Location / / Volume Laterality Blood specimen 12/07/2019 5:20 AM 020 5:37 (specimen) EDT AM EDT Resulting Agency Comment Spec In Lab Gretchen Yoon MD CHEMISTRY ORDERABLES Performing Organization Address City/State/[place] [address] Heparin (unfractionated) Level (12/06/2019 [...] Organization Address City/State/[place] [address] Head wo Contrast [...] For questions regarding this report, please contact [facility] number below. ? Narrative 12/06/2019 [...] mild edema. Preliminary report signed by: Silvio aBker at 12/06/2019 8:02 PM I have personally [...] Signature WBC 10.4 (H) 4.0 - 9.5 [facility] Docitt x10(3)/[facility] LABORATORY RBC 4.32 (L) 4.58 - MELINA DOV 5.54 [facility] x10(6)/[facility] LABORATORY Hemoglobin 12.5 (L) 13.7 - MELINA DOV 16.5 gm/dL [facility] Hematocrit 38.4 (L) 40.5 - MELINA DOV 48.5 % [facility] MCV 88.9 82.9 - [facility] DOV 93.1 [facility] LABORATORY MCH 28.9 27.5 - SeeClickFixDOV 32.1 pg [facility] MCHC 32.6 32.0 - MELINA DOV 35.7 gm/dL [facility] Platelets 194 145 - 357 [facility] x[facility](3)/[facility] LABORATORY RDWSD 46.9 (H) 36.0 - [facility] DOV 45.0 [facility] LABORATORY RDWCV 14.6 (H) 11.4 - MELINA DOV 13.8 % [facility] MPV 11.9 7.6 - 12.9 [facility] DOV [facility] LABORATORY nRBC % Auto 0.0 % [facility] nRBC Abs Auto 0.000 0.000 - Shayne FoodsCOCK 0.000 [facility] x10(3)/[facility] LABORATORY Specimen Anatomical Collection Method Collection Time Receive d Time (Source) Location / / Volume Laterality Blood specimen 12/06/2019 4:20 PM 020 4:31 (specimen) EDT PM EDT Resulting Agency Comment Spec In Lab Gretchen Yoon MD HEMATOLOGY ORDERABLES Performing Organization Address City/State/ZIP Code Phon e Number [place] [id number] [facility]OSP[address] LAB[address]ORY [address] Heparin (unfractionated) Level (12/06/2019 [...] Address City/State/ZIP Code Phon e Number [address] Heparin (unfractionated) Level (12/06/2019 [...] Organization Address City/State/[place] [address] Magnesium (12/06/2019 3:36 AM EDT) P athologist Signature Magnesium 0.86 0.69 - 1.07 [facility] mmol/L [facility] Specimen Anatomical Collection Method Collection Time Receive d Time (Source) Location / / Volume Laterality Blood specimen 12/06/2019 3:36 AM 020 3:45 (specimen) EDT AM EDT Resulting Agency Comment Spec In Lab Gretchen Yoon MD CHEMISTRY ORDERABLES Performing Organization Address City/State/[place] [address] (ABNORMAL) BMP w/fasting Glucose (12/06/2019 3:36 AM EDT) P athologist Signature Glucose 103 (H) 65 - 99 [facility] Fasting mg/dL [facility] Comment: ?Fasting* Glucose Interpretive [...] LABORATORY Creatinine 0.88 0.80 - 1.50 mg/dL [facility] Sodium 136 135 - [...] estions. Chloride 103 98 - 107 mmol/L [facility] CO2 19 (L) 22 - 31 mmol/L [facility] Anion Gap 14 5 - 15 mmol/L [facility] Calcium 8.7 8.5 - 10.5 mg/dL [facility] Estimated GFR 85 >=60 mL/min/1.73 m?? [facility] Comment: The eGFR was calculated using the CKD-EP I equation. As with all creatinine based estimates of kidney function, eGFR values calculated with the CKD-EPI equation are not accurate in patients wi th acute kidney failure, extremes of body mass or the acutely ill. [email or web address] eGFR 99 >=60 mL/min/1.73 m?? [facility] Comment: The eGFR was calculated using the CKD-EP I equation. As with all creatinine based estimates of kidney function, eGFR values calculated with the CKD-EPI equation are not accurate in patients wi th acute kidney failure, extremes of body mass or the acutely ill. [email or web address] Specimen Anatomical Collection Method Collection Time Receive d Time (Source) Location / / Volume Laterality Blood specimen 12/06/2019 3:36 AM 020 3:45 (specimen) EDT AM EDT Resulting Agency Comment Spec In Lab Gretchen Yoon MD CHEMISTRY ORDERABLES Performing Organization Address City/State/[place] [address] (ABNORMAL) Hemogram (12/06/2019 3:36 AM EDT) Analysis Performed At Patho logist Time Signature WBC 9.2 4.0 - 9.5 [facility] x10(3)/[facility] LABORATORY RBC 3.99 (L) 4.58 - MELINA DOV 5.54 [facility] x10(6)/[facility] LABORATORY Hemoglobin 11.9 (L) 13.7 - [facility] DOV 16.5 gm/dL [facility] Hematocrit 35.5 (L) 40.5 - MELINA DOV 48.5 % [facility] MCV 89.0 82.9 - [facility] DOV 93.1 [facility] LABORATORY MCH 29.8 27.5 - MELINA DOV 32.1 pg [facility] MCHC 33.5 32.0 - [facility] DOV 35.7 gm/dL [facility] Platelets 164 145 - 357 [facility] x10(3)/[facility] LABORATORY RDWSD 47.6 (H) 36.0 - [facility] DOV 45.0 [facility] LABORATORY RDWCV 14.7 (H) 11.4 - MELINA DOV 13.8 % [facility] MPV 11.9 7.6 - 12.9 [facility] nRBC % Auto 0.0 % [facility] nRBC Abs Auto 0.000 0.000 - SeeClickFixDOV 0.000 [facility] x10(3)/[facility] LABORATORY Specimen Anatomical Collection Method Collection Time Receive d Time (Source) Location / / Volume Laterality Blood specimen 12/06/2019 3:36 AM 020 3:45 (specimen) EDT AM EDT Resulting Agency Comment Spec In Lab Gretchen Yoon MD HEMATOLOGY ORDERABLES Performing Organization Address City/State/[place] [address] (ABNORMAL) Differential, Automated (12/05/2019 10:52 PM EDT) [facility] Method Time Signature Neutrophils % 61.9 % [facility] Neutr Abs (ANC) 6.02 1.70 - [facility] 6.10 [facility] x10(3)/[facility] LABORATORY Lymphocytes % 22.4 % [facility] Lymphocytes Abs 2.2 0.9 - 3.2 [facility] x10(3)/[facility] LABORATORY Monocytes % 10.4 % [facility] Monocyte Abs 1.0 (H) 0.3 - 0.9 [facility] x10(3)/[facility] LABORATORY Eosinophils % 4.1 % [facility] Eosinophils Abs 0.4 0.0 - 0.4 [facility] x10(3)/[facility] LABORATORY Basophils % 0.7 % [facility] Basophils Abs 0.1 0.0 - 0.1 [facility] x10(3)/[facility] LABORATORY Immature Gran % 0.50 % [facility] Comment: Immature granulocytes(IG's)percentage an [...] Organization Address City/State/[place] [address] (ABNORMAL) Hemogram (12/05/2019 10:52 PM EDT) Analysis Performed At Patho logist Time Signature WBC 9.7 (H) 4.0 - 9.5 [facility] x10(3)/[facility] LABORATORY RBC 4.07 (L) 4.58 - [facility] DOV 5.54 [facility] x10(6)/[facility] LABORATORY Hemoglobin 11.9 (L) 13.7 - [facility] 16.5 gm/dL [facility] Hematocrit 36.4 (L) 40.5 - [facility] 48.5 % [facility] MCV 89.4 82.9 - [facility] 93.1 [facility] LABORATORY MCH 29.2 27.5 - [facility] DOV 32.1 pg [facility] MCHC 32.7 32.0 - [facility] DOV 35.7 gm/dL [facility] Platelets 167 145 - 357 [facility] x10(3)/[facility] LABORATORY RDWSD 47.7 (H) 36.0 - [facility] DOV 45.0 [facility] LABORATORY RDWCV 14.6 (H) 11.4 - [facility] DOV 13.8 % [facility] MPV 12.1 7.6 - 12.9 [facility] LABORATORY nRBC % Auto 0.0 % [facility] nRBC Abs Auto 0.000 0.000 - [facility] DOV 0.000 [facility] x10(3)/[facility] LABORATORY Specimen Anatomical Collection Method Collection Time Receive d Time (Source) Location / / Volume Laterality Blood specimen 12/05/2019 10:52 0 (specimen) PM EDT 10:59 PM EDT Resulting Agency Comment Spec In Lab Mandi Barrera MD HEMATOLOGY ORDERABLES Performing Organization Address City/State/[place] [address] Heparin (unfractionated) Level (12/05/2019 [...] Organization Address City/State/[place] [address] MRI Brain wwo Contrast [...] below. ? Electronically signed by: ALBA Jenkins [facility] ([phone]), at 12/05/2019 10:02 PM Narrative 12/05/2019 10:02 [...] WBC 8.7 4.0 - 9.5 [facility] x10(3)/[facility] LABORATORY RBC 4.17 (L) 4.58 - MELINA DOV 5.54 [facility] x10(6)/[facility] LABORATORY Hemoglobin 12.4 (L) 13.7 - [facility] 16.5 gm/dL [facility] Hematocrit 37.0 (L) 40.5 - [facility] DOV 48.5 % [facility] MCV 88.7 82.9 - [facility] DOV 93.1 [facility] LABORATORY MCH 29.7 27.5 - MELINA DOV 32.1 pg [facility] MCHC 33.5 32.0 - [facility] DOV 35.7 gm/dL [facility] Platelets 173 145 - 357 [facility] x10(3)/[facility] LABORATORY RDWSD 47.3 (H) 36.0 - [facility] DOV 45.0 [facility] LABORATORY RDWCV 14.6 (H) 11.4 - [facility] DOV 13.8 % [facility]ATORY MPV 12.1 7.6 - 12.9 [facility] nRBC % Auto 0.0 % [facility] nRBC Abs Auto 0.000 0.000 - MELINA DOV 0.000 [facility] x10(3)/[facility] LABORATORY Specimen Anatomical Collection Method Collection Time Receive d Time (Source) Location / / Volume Laterality Blood specimen 12/05/2019 1:00 PM 020 1:13 (specimen) EDT PM EDT Resulting Agency Comment Spec In Lab Gretchen Yoon MD HEMATOLOGY ORDERABLES Performing Organization Address City/State/[place] [address] EKG 12 Lead (12/05/2019 10:52 AM EDT) Component Value Ref Range Test Analysis Performed Pathologis t Method Time At Signature Ventricular rate 72 BPM MUSE SYSTEM Atrial Rate 72 BPM MUSE SYSTEM P-R Interval 138 ms MUSE SYSTEM QRS Duration 96 ms MUSE SYSTEM Q-T Interval 396 ms MUSE SYSTEM QTC Calculated 433 ms MUSE SYSTEM (Bezet) Calculated P [place] 65 degrees MUSE SYSTEM Calculated R [place] 13 degrees MUSE SYSTEM Calculated T [place] 0 degrees MUSE SYSTEM INTERPRETATION Sinus rhythm Occasional Premature ventricular complexe s MUSE SYSTEM Possible Inferior infarct (cited on or before 29-NOV-2019) Abnormal ECG When compared with ECG of 04-DEC-2019 10:43, Sinus rhythm has replaced Atrial fibrillation Vent. rate has decreased BY ??86 BPM Confirmed by MD Ceja Daniel ([id number]) on 12/05/2019 3:55:22 PM Specimen Anatomical Collection [...] Performed At [facility] gist Range Method Time Signature VB Text Department: Vascular Surgery Lab VASCUBASE Report Patient: [id number] (ANGEL LUIS SALINAS) CPT: 01840 ICD10: I26.99 Referring Physician: GRETCHEN YOON ?? [...] 0.87 0.69 - 1.07 [facility] mmol/L [facility] Specimen Anatomical Collection Method Collection Time Receive d Time (Source) Location / / Volume Laterality Blood specimen 12/05/2019 4:18 AM 020 4:31 (specimen) EDT AM EDT Resulting Agency Comment Spec In Lab Gretchen Yoon MD CHEMISTRY ORDERABLES Performing Organization Address City/State/[place] [address] (ABNORMAL) BMP w/fasting Glucose (12/05/2019 4:18 AM EDT) P athologist Signature Glucose 104 (H) 65 - 99 [facility] Fasting mg/dL [facility] Comment: ?Fasting* Glucose Interpretive [...] LABORATORY Creatinine 1.02 0.80 - 1.50 mg/dL [facility]ORY Sodium 136 135 - [...] estions. Chloride 103 98 - 107 mmol/L [facility] CO2 21 (L) 22 - 31 mmol/L [facility] Anion Gap 12 5 - 15 mmol/L [facility] Calcium 8.8 8.5 - 10.5 mg/dL [facility]ORY Estimated GFR 73 >=60 mL/min/1.73 m?? [facility] Comment: The eGFR was calculated using the CKD-EP I equation. As with all creatinine based estimates of kidney function, eGFR values calculated with the CKD-EPI equation are not accurate in patients wi th acute kidney failure, extremes of body mass or the acutely ill. [email or web address] eGFR 84 >=60 mL/min/1.73 m?? [facility] Comment: The eGFR was calculated using the CKD-EP I equation. As with all creatinine based estimates of kidney function, eGFR values calculated with the CKD-EPI equation are not accurate in patients wi th acute kidney failure, extremes of body mass or the acutely ill. [email or web address] Specimen Anatomical Collection Method Collection Time Receive d Time (Source) Location / / Volume Laterality Blood specimen 12/05/2019 4:18 AM 020 4:31 (specimen) EDT AM EDT Resulting Agency Comment Spec In Lab Gretchen Yoon MD CHEMISTRY ORDERABLES Performing Organization Address City/State/[place] [address] (ABNORMAL) Hemogram (12/05/2019 4:18 AM EDT) Analysis Performed At Patho logist Time Signature WBC 8.6 4.0 - 9.5 [facility] x10(3)/[facility] LABORATORY RBC 4.28 (L) 4.58 - MELINA DOV 5.54 [facility] x10(6)/[facility] LABORATORY Hemoglobin 12.4 (L) 13.7 - [facility] 16.5 gm/dL [facility] Hematocrit 37.3 (L) 40.5 - [facility] 48.5 % [facility] MCV 87.1 82.9 - [facility] 93.1 [facility] LABORATORY MCH 29.0 27.5 - MELINA DOV 32.1 pg [facility] MCHC 33.2 32.0 - MELINA DOV 35.7 gm/dL [facility] Platelets 163 145 - 357 [facility] x10(3)/[facility] LABORATORY RDWSD 46.4 (H) 36.0 - [facility] DOV 45.0 [facility] LABORATORY RDWCV 14.4 (H) 11.4 - [facility] DOV 13.8 % [facility] MPV 11.7 7.6 - 12.9 [facility] nRBC % Auto 0.0 % [facility] nRBC Abs Auto 0.000 0.000 - MELINA DOV 0.000 [facility] x10(3)/[facility] LABORATORY Specimen Anatomical Collection Method Collection Time Receive d Time (Source) Location / / Volume Laterality Blood specimen 12/05/2019 4:18 AM 020 4:31 (specimen) EDT AM EDT Resulting Agency Comment Spec In Lab Gretchen Yoon MD HEMATOLOGY ORDERABLES Performing Organization Address City/State/[place] [address] Cardiac for Morphology [...] For questions regarding this report, please contact [facility] number below. ? Narrative 12/04/2019 6:16 PM EDT EXAMINATION: CT CARDIAC FOR MORPHOLOGY & FUNCTION CLINICAL HISTORY: Pt with AFib and intra cranial hemorrhage, evaluation for possible left atrial appendage closure TECHNIQUE: After timing bolus, [facility] contiguous sections were obtained through [...] from neck/greatest puja meter to back wall: CYMRAES 91, CAU 13: ??19 mm CORTES ??1, [...] from neck/greatest puja meter to back wall: CYMRAES 91, CAU 13: 19 mm CORTES 1, [...] Time Signature WBC 8.9 4.0 - 9.5 [facility] x10(3)/[facility] LABORATORY RBC 4.69 4.58 - [facility] 5.54 [facility] x10(6)/[facility] LABORATORY Hemoglobin 13.5 (L) 13.7 - [facility] 16.5 gm/dL [facility] Hematocrit 41.7 40.5 - [facility] 48.5 % [facility] LAB[facility]ATORY MCV 88.9 82.9 - M[facility]INA MONAE 93.1 [facility] LABORATORY MCH 28.8 27.5 - MELINA MONAE 32.1 pg [facility] MCHC 32.4 32.0 - [facility]INA MONAE 35.7 gm/dL [facility] Platelets 196 145 - 357 [facility] x10(3)/[facility] LABORATORY RDWSD 46.7 (H) 36.0 - MELINA MONAE 45.0 [facility] LABORATORY RDWCV 14.5 (H) 11.4 - M[facility]INA DOV 13.8 % [facility] LABORATORY MPV 12.1 7.6 - 12.9 [facility] LABORATORY nRBC % Auto 0.0 % [facility] nRBC Abs Auto 0.000 0.000 - MELINA MONAE 0.000 [facility] x10(3)/[facility] LABORATORY Specimen Anatomical Collection Method Collection Time Receive d Time (Source) Location / / Volume Laterality Blood specimen 12/04/2019 12:55 0 1:06 (specimen) PM EDT PM EDT Resulting Agency Comment Spec In Lab Gretchen Yoon MD HEMATOLOGY ORDERABLES Performing Organization Address City/State/[place] [address] EKG 12 Lead (12/04/2019 10:43 AM EDT) Component Value Ref Range Test Analysis Performed Pathologis t Method Time At Signature Ventricular rate 158 BPM MUSE SYSTEM Atrial Rate 102 BPM MUSE SYSTEM QRS Duration 92 ms MUSE SYSTEM Q-T Interval 294 ms MUSE SYSTEM QTC Calculated 476 ms MUSE SYSTEM (Bezet) Calculated R [place] 17 degrees MUSE SYSTEM Calculated T [place] 90 degrees MUSE SYSTEM INTERPRETATION Atrial fibrillation with rapid ventricular response MUSE SYSTEM Possible Inferior infarct (cited on or before 29-NOV-2019) Abnormal ECG When compared with ECG of 30-NOV-2019 21:07, Atrial fibrillation has replaced Sinus rhythm Vent. rate has increased BY ??65 BPM Confirmed by MD Ceja Daniel ([id number]) on 12/05/2019 8:59:44 AM Specimen Anatomical Collection Method Collection Time Receive d Time (Source) Location / / Volume Laterality 12/04/2019 10:43 12/05/2019 8:59 AM EDT AM EDT Gretchen Yoon MD ECG ORDERABLES Performing Organization Address City/State/ZIP Code Phon e Number MUSE SYSTEM (ABNORMAL) Magnesium (12/04/2019 4:28 AM EDT) athologist Signature Magnesium 1.17 (H) 0.69 - 1.07 [facility] mmol/L [facility] Specimen Anatomical Collection Method Collection Time Receive d Time (Source) Location / / Volume Laterality Blood specimen 12/04/2019 4:28 AM 020 4:40 (specimen) EDT AM EDT Resulting Agency Comment Spec In Lab Gretchen Yoon MD CHEMISTRY ORDERABLES Performing Organization Address City/State/[place] [address] (ABNORMAL) BMP w/fasting Glucose (12/04/2019 4:28 AM EDT) P athologist Signature Glucose 108 (H) 65 - 99 [facility] Fasting mg/dL [facility] Comment: ?Fasting* Glucose Interpretive [...] LABORATORY Creatinine 0.89 0.80 - 1.50 mg/dL [facility] LABORATORY Sodium 135 135 - [...] estions. Chloride 104 98 - 107 mmol/L [facility] CO2 19 (L) 22 - 31 mmol/L [facility] HOSPITAL LABORATORY Anion Gap 12 5 - 15 mmol/L [facility] Calcium 8.5 8.5 - 10.5 mg/dL [facility] Estimated GFR 85 >=60 mL/min/1.73 m?? [facility] Comment: The eGFR was calculated using the CKD-EP I equation. As with all creatinine based estimates of kidney function, eGFR values calculated with the CKD-EPI equation are not accurate in patients wi th acute kidney failure, extremes of body mass or the acutely ill. [email or web address]://[email or web address] eGFR 98 >=60 mL/min/1.73 m?? [facility] Comment: The eGFR was calculated using the CKD-EP I equation. As with all creatinine based estimates of kidney function, eGFR values calculated with the CKD-EPI equation are not accurate in patients wi th acute kidney failure, extremes of body mass or the acutely ill. [email or web address]nkf Specimen Anatomical Collection Method Collection Time Receive d Time (Source) Location / / Volume Laterality Blood specimen 12/04/2019 4:28 AM 020 4:40 (specimen) EDT AM EDT Resulting Agency Comment Spec In Lab Gretchen Yoon MD CHEMISTRY ORDERABLES Performing Organization Address City/State/[place] [address] (ABNORMAL) Hemogram (12/04/2019 4:28 AM EDT) Analysis Performed At Patho logist Time Signature WBC 7.8 4.0 - 9.5 [facility] x10(3)/[facility] LABORATORY RBC 4.10 (L) 4.58 - [facility] 5.54 [facility] x10(6)/[facility] LABORATORY Hemoglobin 12.0 (L) 13.7 - [facility] [place] 16.5 gm/dL [facility]OR[facility]ORY Hematocrit 36.5 (L) 40.5 - [place] VILLAN[place]ACK 48.5 % [facility] LABORATORY MCV 89.0 82.9 - [place] 93.1 [facility] LABORATORY MCH 29.3 27.5 - [place] 32.1 pg [facility] LAB[facility] MCHC 32.9 32.0 - [place] 35.7 gm/dL [facility] Platelets 151 145 - 357 [facility] x10(3)/[facility] LABORATORY RDWSD 46.9 (H) 36.0 - [place] 45.0 [facility] LABORATORY RDWCV 14.4 (H) 11.4 - [place] DOV 13.8 % [facility] LABORATORY MPV 12.2 7.6 - 12.9 MELINA MARSHDOV [facility] LABORATORY nRBC % Auto 0.0 % [facility] nRBC Abs Auto 0.000 0.000 - [place] 0.000 [facility] x10(3)/[facility] LABORATORY Specimen Anatomical Collection Method Collection Time Receive d Time (Source) Location / / Volume Laterality Blood specimen 12/04/2019 4:28 AM 020 4:40 (specimen) EDT AM EDT Resulting Agency Comment Spec In Lab Gretchen Yoon MD HEMATOLOGY ORDERABLES Performing Organization Address City/State/[place] [address] Potassium (12/03/2019 7:55 PM EDT) athologist Signature Potassium 3.9 3.5 - 5.0 [facility] mmol/L [facility] Comment: Please note: ??Patients [...] Yoon MD CHEMISTRY ORDERABLES Performing Organization Address City/[facility]/[place] [address] Potassium (12/03/2019 1:57 PM EDT) P athologist Signature Potassium 3.7 3.5 - 5.0 [facility] mmol/L [facility] Comment: Please note: ??Patients [...] Yoon MD CHEMISTRY ORDERABLES Performing Organization Address City/[facility]/[place] [address] (ABNORMAL) Hemogram (12/03/2019 1:57 PM EDT) Analysis Performed At Patho logist Time Signature WBC 8.8 4.0 - 9.5 [facility] D[facility] x10(3)/[facility] LABORATORY RBC 4.27 (L) 4.58 - [place] DOV 5.54 [facility] x10(6)/[facility] LABORATORY Hemoglobin 12.5 (L) 13.7 - [place] DOV 16.5 gm/dL [facility] Hematocrit 37.5 (L) 40.5 - [place] DOV 48.5 % [facility] LABORATORY MCV 87.8 82.9 - [place] DOV 93.1 [facility] LABORATORY MCH 29.3 27.5 - [place] DOV 32.1 pg [facility] LABORATORY MCHC 33.3 32.0 - [place] DOV 35.7 gm/dL [facility] Platelets 158 145 - 357 [facility] DOV x10(3)/[facility] LABORATORY RDWSD 46.9 (H) 36.0 - [place] DOV 45.0 [facility] LABORATORY RDWCV 14.5 (H) 11.4 - [place] DOV 13.8 % [facility] LABORATORY MPV 12.2 7.6 - 12.9 [facility] fL [facility] LABORATORY nRBC % Auto 0.0 % [facility] nRBC Abs Auto 0.000 0.000 - [place] MONAE 0.000 [facility] x10(3)/[facility] LABORATORY Specimen Anatomical Collection Method Collection Time Receive d Time (Source) Location / / Volume Laterality Blood specimen 12/03/2019 1:57 PM 020 2:21 (specimen) EDT PM EDT Resulting Agency Comment Spec In Lab Gretchen Yoon MD HEMATOLOGY ORDERABLES Performing Organization Address City/State/ZIP Code Phon e Number [address] Magnesium (12/03/2019 4:02 AM EDT) P athologist Signature Magnesium 0.79 0.69 - 1.07 [facility] mmol/L [facility] LABORATORY Specimen Anatomical Collection Method Collection Time Receive d Time (Source) Location / / Volume Laterality Blood specimen 12/03/2019 4:02 AM 020 4:16 (specimen) EDT AM EDT Resulting Agency Comment Spec In Lab Gretchen Yoon MD CHEMISTRY ORDERABLES Performing Organization Address City/State/ZIP Code Phon e Number [address] (ABNORMAL) BMP w/fasting Glucose (12/03/2019 4:02 AM EDT) P athologist Signature Glucose 100 (H) 65 - 99 [facility] Fasting mg/dL [facility] Comment: ?Fasting* Glucose Interpretive [...] LABORATORY Creatinine 0.95 0.80 - 1.50 mg/dL [facility] LABORATORY Sodium 136 135 - [...] estions. Chloride 103 98 - 107 mmol/L [facility] CO2 18 (L) 22 - 31 mmol/L [facility] Anion Gap 15 5 - 15 mmol/L [facility] Calcium 8.3 (L) 8.5 - 10.5 mg/dL [facility] LABORATORY Estimated GFR 79 >=60 mL/min/1.73 m?? [facility] Comment: The eGFR was calculated using the CKD-EP I equation. As with all creatinine based estimates of kidney function, eGFR values calculated with the CKD-EPI equation are not accurate in patients wi th acute kidney failure, extremes of body mass or the acutely ill. [email or web address]VIEWnkf eGFR 92 >=60 mL/min/1.73 m?? [facility] Comment: The eGFR was calculated using the CKD-EP I equation. As with all creatinine based estimates of kidney function, eGFR values calculated with the CKD-EPI equation are not accurate in patients wi th acute kidney failure, extremes of body mass or the acutely ill. [email or web address] Specimen Anatomical Collection Method Collection Time Receive d Time (Source) Location / / Volume Laterality Blood specimen 12/03/2019 4:02 AM 06/03/2 020 4:16 (specimen) EDT AM EDT Resulting Agency Comment Spec In Lab Gretchen Yoon MD CHEMISTRY ORDERABLES Performing Organization Address City/State/ZIP Code Phon e Number [address] (ABNORMAL) Hemogram (12/03/2019 4:02 AM EDT) Analysis Performed At Patho logist Time Signature WBC 9.1 4.0 - 9.5 [place] DOV x10(3)/[facility] LABORATORY RBC 4.01 (L) 4.58 - [place] DOV 5.54 [facility] x10(6)/[facility] LABORATORY Hemoglobin 11.8 (L) 13.7 - [facility] 16.5 gm/dL [facility] LABORATORY Hematocrit 35.6 (L) 40.5 - [place] DOV 48.5 % [facility] LABORATORY MCV 88.8 82.9 - [facility] 93.1 [facility] LABORATORY MCH 29.4 27.5 - [place] DOV 32.1 pg [facility] LABORATORY MCHC 33.1 32.0 - [place] DOV 35.7 gm/dL [facility] LABORATORY Platelets 130 (L) 145 - 357 [facility] x[facility](3[facility] LABORATORY RDWSD 46.6 (H) 36.0 - [place] DOV 45.0 [facility] LABORATORY RDWCV 14.4 (H) 11.4 - [place] DOV 13.8 % [facility] LABORATORY MPV 12.4 7.6 - 12.9 [facility] LABORATORY nRBC % Auto 0.0 % [facility] nRBC Abs Auto 0.000 0.000 - [place] DOV 0.000 [facility] x10(3)/[facility] LABORATORY Specimen Anatomical Collection Method Collection Time Receive d Time (Source) Location / / Volume Laterality Blood specimen 12/03/2019 4:02 AM 020 4:16 (specimen) EDT AM EDT Resulting Agency Comment Spec In Lab Gretchen Yoon MD HEMATOLOGY ORDERABLES Performing Organization Address City/State/[place] [address] XR Chest One View [...] 10.6 (H) 4.0 - 9.5 [facility] x10(3)/[facility] LABORATORY RBC 4.00 (L) 4.58 - [place] DOV 5.54 [facility] x10(6)/[facility] LABORATORY Hemoglobin 11.9 (L) 13.7 - [facility] 16.5 gm/dL [facility] LABORATORY Hematocrit 35.7 (L) 40.5 - [place] DOV 48.5 % [facility] LABORATORY MCV 89.3 82.9 - [place] DOV 93.1 [facility] LABORATORY MCH 29.8 27.5 - [place] DOV 32.1 pg [facility] LABORATORY MCHC 33.3 32.0 - [place] DOV 35.7 gm/dL [facility] LABORATORY Platelets 120 (L) 145 - 357 [facility] x10(3)/[facility] LABORATORY RDWSD 47.5 (H) 36.0 - [place] DOV 45.0 [facility] LABORATORY RDWCV 14.6 (H) 11.4 - [place] DOV 13.8 % [facility] LABORATORY MPV 12.0 7.6 - 12.9 [facility] LABORATORY nRBC % Auto 0.0 % [facility] LABORATORY nRBC Abs Auto 0.000 0.000 - [place] DOV 0.000 [facility] x10(3)/[facility] LABORATORY Specimen Anatomical Collection Method Collection Time Receive d Time (Source) Location / / Volume Laterality Blood specimen 12/02/2019 12:50 0 1:22 (specimen) PM EDT PM EDT Resulting Agency Comment Spec In Lab Gretchen Yoon MD HEMATOLOGY ORDERABLES Performing Organization Address City/State/ZIP Code Phon e Number [address] Blue Tube HOLD (12/02/2019 4:55 AM EDT) P athologist Signature Blue Hold Sample in [facility] lab. [facility] LABORATORY Specimen Anatomical Collection Method Collection Time Receive d Time (Source) Location / / Volume Laterality Blood specimen Venous Draw / 12/02/2019 4:55 AM 2019 5:03 (specimen) Unknown EDT AM EDT Darrell Glasgow MD HEMATOLOGY ORDERABLES Performing Organization Address City/[facility]/ZIP Code Phon e Number [address] Magnesium (12/02/2019 4:55 AM EDT) athologist Signature Magnesium 0.85 0.69 - 1.07 [facility] mmol/L [facility] LABORATORY Specimen Anatomical Collection Method Collection Time Receive d Time (Source) Location / / Volume Laterality Blood specimen 12/02/2019 4:55 AM 020 5:02 (specimen) EDT AM EDT Resulting Agency Comment Spec In Lab Gretchen Yoon MD CHEMISTRY ORDERABLES Performing Organization Address City/[facility]/ZIP Code Phon e Number [address] (ABNORMAL) BMP w/fasting Glucose (12/02/2019 4:55 AM EDT) P athologist Signature Glucose 114 (H) 65 - 99 [facility] Fasting mg/dL [facility] LABORATORY Comment: ?Fasting* Glucose Interpretive [...] LABORATORY Creatinine 0.93 0.80 - 1.50 mg/dL [facility] LABORATORY Sodium 135 135 - [...] estions. Chloride 105 98 - 107 mmol/L [facility] CO2 18 (L) 22 - 31 mmol/L [facility] Anion Gap 12 5 - 15 mmol/L [facility] Calcium 8.1 (L) 8.5 - 10.5 mg/dL [facility] LAB[facility]ATORY Estimated GFR 81 >=60 mL/min/1.73 m?? [facility] Comment: The eGFR was calculated using the CKD-EP I equation. As with all creatinine based estimates of kidney function, eGFR values calculated with the CKD-EPI equation are not accurate in patients wi th acute kidney failure, extremes of body mass or the acutely ill. [email or web address]nkf eGFR 94 >=60 mL/min/1.73 m?? [facility] Comment: The eGFR was calculated using the CKD-EP I equation. As with all creatinine based estimates of kidney function, eGFR values calculated with the CKD-EPI equation are not accurate in patients wi th acute kidney failure, extremes of body mass or the acutely ill. [email or web address]nkf Specimen Anatomical Collection Method Collection Time Receive d Time (Source) Location / / Volume Laterality Blood specimen 12/02/2019 4:55 AM 020 5:02 (specimen) EDT AM EDT Resulting Agency Comment Spec In Lab Gretchen Yoon MD CHEMISTRY ORDERABLES Performing Organization Address City/State/ZIP Code Phon e Number [address] (ABNORMAL) Hemogram (12/02/2019 4:55 AM EDT) Analysis Performed At Patho logist Time Signature WBC 9.3 4.0 - 9.5 [facility] D[facility] x10(3)/[facility] LABORATORY RBC 3.71 (L) 4.58 - [place] DOV 5.54 [facility] x10(6)/[facility] LABORATORY Hemoglobin 10.8 (L) 13.7 - [place] DOV 16.5 gm/dL [facility] LABORATORY Hematocrit 33.1 (L) 40.5 - [place] DOV 48.5 % [facility] LABORATORY MCV 89.2 82.9 - [facility] 93.1 [facility] LABORATORY MCH 29.1 27.5 - [place] DOV 32.1 pg [facility] LABORATORY MCHC 32.6 32.0 - [place] DOV 35.7 gm/dL [facility] LABORATORY Platelets 93 (L) 145 - 357 [facility] x10(3)/[facility] LABORATORY RDWSD 47.1 (H) 36.0 - [facility] 45.0 [facility] LABORATORY RDWCV 14.6 (H) 11.4 - [place] DOV 13.8 % [facility] LABORATORY MPV 11.7 7.6 - 12.9 [facility] LABORATORY nRBC % Auto 0.0 % [facility]ORY nRBC Abs Auto 0.000 0.000 - [place] DOV 0.000 [facility] x10(3)/[facility] LABORATORY Specimen Anatomical Collection Method Collection Time Receive d Time (Source) Location / / Volume Laterality Blood specimen 12/02/2019 4:55 AM 020 5:02 (specimen) EDT AM EDT Resulting Agency Comment Spec In Lab Gretchen Yoon MD HEMATOLOGY ORDERABLES Performing Organization Address City/State/ZIP Code Phon e Number [address] Transfuse 1 unit platelets, [...] For questions regarding this report, please contact [facility] number below. ? Electronically signed by: Angel Luis Barboza MD, [facility] ([phone]), at 12/01/2019 8:02 PM Narrative 12/01/2019 8:02 [...] 6:20 PM EDT) athologist Signature Dispensed? Yes [facility] Specimen Anatomical Collection Method Collection Time Receive d Time (Source) Location / / Volume Laterality Blood specimen 12/01/2019 6:20 PM 020 6:18 (specimen) EDT PM EDT Gretchen Yoon MD BLOOD BANK ORDERABLES Performing Organization Address City/State/[place] [address] Duplex for DVT, Arm, Unilat (12/01/2019 5:08 PM EDT) Component Value Ref Test Analysis Performed At [facility] Range Method Time Signature VB Text Department: Vascular Surgery Lab VASCUBASE Report Patient: [id number] (ANGEL LUIS SALINAS) CPT: 28493 ICD10: R60.0 Referring Physician: GRETCHEN YOON ?? [...] Head CT 11/30/2019. CT angiogram of the [place] 11/01. FINDINGS: Ventricles are normal [...] Head CT 11/30/2019. CT angiogram of the [place] 11/01. FINDINGS: Ventricles are normal [...] Scan, Peripheral Blood (12/01/2019 12:51 PM EDT) [facility] Method Time Signature Plat Estimate Decreased [facility] RBC Morphology Normal [facility] Giant Less than 1 /HPF [facility] LABORATORY Specimen Anatomical Collection Method Collection Time Receive d Time (Source) Location / / Volume Laterality Blood specimen 12/01/2019 12:51 0 1:05 (specimen) PM EDT PM EDT Resulting Agency Comment Spec In Lab Riki Stevens MD HEMATOLOGY ORDERABLES Performing Organization Address City/State/[place] [address] (ABNORMAL) Differential, Automated (12/01/2019 12:51 PM EDT) [facility] Method Time Signature Neutrophils % 74.9 % [facility] Neutr Abs (ANC) 6.34 (H) 1.70 - [facility] 6.10 [facility] x10(3)/[facility] LABORATORY Lymphocytes % 11.4 % [facility]ORATORY Lymphocytes Abs 1.0 0.9 - 3.2 [facility] x10(3)/[facility] LABORATORY Monocytes % 12.4 % [facility] LABORATORY Monocyte Abs 1.0 (H) 0.3 - 0.9 [facility] x10(3)/[facility] LABORATORY Eosinophils % 0.4 % [facility] LABORATORY Eosinophils Abs 0.0 0.0 - 0.4 [facility] x10(3)/[facility] LABORATORY Basophils % 0.4 % [facility] LABORATORY Basophils Abs 0.0 0.0 - 0.1 [facility] x10(3)/[facility] LABORATORY Immature Gran % 0.50 % [facility] Comment: Immature granulocytes(IG's)percentage an d absolute count will include metamyelocytes, myelocytes, and promyelo cytes. Blood smears from CBCs yielding IG's will be scanned manually for concor dance. If this scan disagrees with the automated IG or if promyelocytes are not ed, a manual differential will be performed. Pita Gran Abs 0.04 0.00 - 0.04 x10(3)/[facility] LABORATORY Specimen Anatomical Collection Method Collection Time Receive d Time (Source) Location / / Volume Laterality Blood specimen 12/01/2019 12:51 0 1:05 (specimen) PM EDT PM EDT Resulting Agency Comment Spec In Lab Riki Stevens MD HEMATOLOGY ORDERABLES Performing Organization Address City/State/[place] [address] (ABNORMAL) Hemogram (12/01/2019 12:51 PM EDT) Analysis Performed At Patho logist Time Signature WBC 8.4 4.0 - 9.5 [facility] x10(3)/[facility] LABORATORY RBC 3.69 (L) 4.58 - [facility] 5.54 [facility] x10(6)/[facility] LABORATORY Hemoglobin 10.8 (L) 13.7 - [facility] 16.5 gm/dL [facility] LABORATORY Hematocrit 32.4 (L) 40.5 - [facility] 48.5 % [facility] LAB[facility]ATORY MCV 87.8 82.9 - [facility] 93.1 fL [facility] LABORATORY MCH 29.3 27.5 - [facility] 32.1 pg [facility] LABORATORY MCHC 33.3 32.0 - [facility] 35.7 gm/dL [facility] LABORATORY Platelets 72 (L) 145 - 357 [facility] x10(3)/[facility] LABORATORY RDWSD 47.2 (H) 36.0 - [facility] 45.0 [facility] LABORATORY RDWCV 14.6 (H) 11.4 - [facility] 13.8 % [facility] LABORATORY MPV 12.2 7.6 - 12.9 [facility] LABORATORY nRBC % Auto 0.0 % [facility] LABORATORY nRBC Abs Auto 0.000 0.000 - [facility] 0.000 [facility] x10(3)/[facility] LABORATORY Specimen Anatomical Collection Method Collection Time Receive d Time (Source) Location / / Volume Laterality Blood specimen 12/01/2019 12:51 0 1:05 (specimen) PM EDT PM EDT Resulting Agency Comment Spec In Lab Riki Stevens MD HEMATOLOGY ORDERABLES Performing Organization Address City/[facility]/ZIP Code Phon e Number [address] (ABNORMAL) Coox2 (12/01/2019 11:42 AM EDT) Analysis Performed At Patho logist Time Signature pO2 Coox 30 mmHg [facility] LABORATORY Hgb Blood Gas 11.6 (L) 13.7 - [facility] 16.5 gm/dL [facility] LABORATORY O2HB Coox 60.8 % [facility] LABORATORY COHB Coox 0.6 % [facility] Comment: Nonsmokers: 0.5-1.5% COHB Smokers: Variable, but usually less than 10% Toxic: 20-30% COHB Lethal: Greater than 60% COHB METHB Coox 0.6 <=1.5 % [facility] LABORATORY Source Coox Mixed Venous [facility] LABORATORY Specimen Anatomical Collection Method Collection Time Receive d Time (Source) Location / / Volume Laterality Blood specimen 12/01/2019 11:42 0 (specimen) AM EDT 11:42 AM EDT Gretchen Yoon MD CHEMISTRY ORDERABLES Performing Organization Address City/State/[place] [address] Sedimentation rate (12/01/2019 3:55 AM EDT) P athologist Signature Sed Rate 25 3 - 46 [facility] mm/hr [facility] LABORATORY Comment: Effective June 11, [...] Winn MD HEMATOLOGY ORDERABLES Performing Organization Address City/[facility]/ZIP Code Phon e Number [address] (ABNORMAL) CRP, acute inflammation (12/01/2019 3:55 AM EDT) P athologist Signature CRP 92.5 (H) <=4.9 mg/L [facility] LABORATORY Specimen Anatomical Collection Method Collection Time Receive d Time (Source) Location / / Volume Laterality Blood specimen Venous Draw / 12/01/2019 3:55 AM 2019 4:06 (specimen) Unknown EDT AM EDT Resulting Agency Comment Spec In Lab Rossy Winn MD CHEMISTRY ORDERABLES Performing Organization Address City/[facility]/ZIP Code Phon e Number [address] ABORH Recheck Status (12/01/2019 3:55 AM EDT) [facility] [employer] Method Time Signature ABORH Recheck Order Placed [facility] LABORATORY ABORH Type Complete [facility] LABORATORY Specimen Anatomical Collection Method Collection Time Receive d Time (Source) Location / / Volume Laterality Blood specimen 12/01/2019 3:55 AM 020 4:15 (specimen) EDT AM EDT Resulting Agency Comment Spec In Lab Lewis Gee MD BLOOD BANK ORDERABLES Performing Organization Address City/[facility]/[place] [address] Antibody screen (12/01/2019 3:55 AM EDT) Patholo gist Method Time Signature Ab Screen Negative [facility] LABORATORY Expires at 12/04/2019 [facility] [id number] on: [facility] LABORATORY Specimen Anatomical Collection Method Collection Time Receive d Time (Source) Location / / Volume Laterality Blood specimen 12/01/2019 3:55 AM 020 4:15 (specimen) EDT AM EDT Resulting Agency Comment Spec In Lab Lewis Gee MD BLOOD BANK ORDERABLES Performing Organization Address [facility] [facility] [place] [address] ABO/Rh Typing (12/01/2019 3:55 AM EDT) athologist Signature ABORh Type AB Pos [facility] LABORATORY Specimen Anatomical Collection Method Collection Time Receive d Time (Source) Location / / Volume Laterality Blood specimen 12/01/2019 3:55 AM 020 4:15 (specimen) EDT AM EDT Resulting Agency Comment Spec In Lab Lewis Gee MD BLOOD BANK ORDERABLES Performing Organization Address [facility] [place] [address] (ABNORMAL) Troponin (12/01/2019 3:55 AM EDT) athologist [facility] Troponin-T 4.35 (H) 0.00 - [facility] 0.00 ng/mL [facility] Comment: result rechecked-slw The [...] additional sample may be indicated. Reference: [place] Definition of Myocardial Infarction. Journal of the [place] [employer] 2012;60:1581-98 Specimen Anatomical Collection Method Collection Time Receive d Time (Source) Location / / Volume Laterality Blood specimen 12/01/2019 3:55 AM 020 4:00 (specimen) EDT AM EDT Resulting Agency Comment Spec In Lab Gretchen Yoon MD CHEMISTRY ORDERABLES Performing Organization Address City/State/ZIP Code Phon e Number [address] Magnesium (12/01/2019 3:55 AM EDT) athologist Signature Magnesium 0.96 0.69 - 1.07 [facility] mmol/L [facility] LABORATORY Specimen Anatomical Collection Method Collection Time Receive d Time (Source) Location / / Volume Laterality Blood specimen 12/01/2019 3:55 AM 020 4:00 (specimen) EDT AM EDT Resulting Agency Comment Spec In Lab Gretchen Yoon MD CHEMISTRY ORDERABLES Performing Organization Address City/State/[place] [address] (ABNORMAL) BMP w/fasting Glucose (12/01/2019 3:55 AM EDT) P athologist Signature Glucose 148 (H) 65 - 99 [facility] Fasting mg/dL [facility] Comment: ?Fasting* Glucose Interpretive [...] LABORATORY Creatinine 0.96 0.80 - 1.50 mg/dL [facility] LABORATORY Sodium 132 (L) 135 [...] estions. Chloride 105 98 - 107 mmol/L [facility] CO2 17 (L) 22 - 31 mmol/L [facility] Anion Gap 10 5 - 15 mmol/L [facility] LAB[facility] Calcium 7.6 (L) 8.5 - 10.5 mg/dL [facility] LABORATORY Estimated GFR 78 >=60 mL/min/1.73 m?? [facility] Comment: The eGFR was calculated using the CKD-EP I equation. As with all creatinine based estimates of kidney function, eGFR values calculated with the CKD-EPI equation are not accurate in patients wi th acute kidney failure, extremes of body mass or the acutely ill. [email or web address]VIEWnkf eGFR 91 >=60 mL/min/1.73 m?? [facility] Comment: The eGFR was calculated using the CKD-EP I equation. As with all creatinine based estimates of kidney function, eGFR values calculated with the CKD-EPI equation are not accurate in patients wi th acute kidney failure, extremes of body mass or the acutely ill. [email or web address] Specimen Anatomical Collection Method Collection Time Receive d Time (Source) Location / / Volume Laterality Blood specimen 12/01/2019 3:55 AM 020 4:00 (specimen) EDT AM EDT Resulting Agency Comment Spec In Lab Gretchen Yoon MD CHEMISTRY ORDERABLES Performing Organization Address City/State/[place] [address] (ABNORMAL) Hemogram (12/01/2019 3:55 AM EDT) Analysis Performed At Patho logist Time Signature WBC 11.0 (H) 4.0 - 9.5 [facility](3[facility] LABORATORY RBC 3.46 (L) 4.58 - [facility] DOV 5.54 [facility] x10(6)/[facility] LABORATORY Hemoglobin 10.2 (L) 13.7 - [facility] 16.5 gm/dL [facility] Hematocrit 31.2 (L) 40.5 - [facility] 48.5 % [facility]ORATORY MCV 90.2 82.9 - [facility] 93.1 [facility] LABORATORY MCH 29.5 27.5 - [place] 32.1 pg [facility] LABORATORY MCHC 32.7 32.0 - [place] D[place] 35.7 gm/dL [facility] LABORATORY Platelets 98 (L) 145 - 357 [facility] x10(3)/[facility] LABORATORY RDWSD 47.9 (H) 36.0 - [facility] DOV 45.0 [facility] LABORATORY RDWCV 14.6 (H) 11.4 - [facility] DOV 13.8 % [facility] LABORATORY MPV 12.3 7.6 - 12.9 [facility] nRBC % Auto 0.0 % [facility] LABORAT[facility] nRBC Abs Auto 0.000 0.000 - [place] D[place] 0.000 [facility] x10(3)/[facility] LABORATORY Specimen Anatomical Collection Method Collection Time Receive d Time (Source) Location / / Volume Laterality Blood specimen 12/01/2019 3:55 AM 020 4:00 (specimen) EDT AM EDT Resulting Agency Comment Spec In Lab Gretchen Yoon MD HEMATOLOGY ORDERABLES Performing Organization Address City/State/ZIP Code [place] [address] (ABNORMAL) BLOOD GAS 2 ARTERIAL (11/30/2019 10:39 PM EDT) Analysis Performed At Patho logist Time Signature pH Art 7.45 7.35 - [facility] 7.45 [facility] LABORATORY pCO2 Art 23 (L) 35 - 45 [facility] mmHg [facility] LABORATORY pO2 Art 76 (L) 85 - 104 [facility] mmHg [facility] LABORATORY HCO3 Art 15.3 (L) 20.0 - [facility] 26.0 [facility] mmol/L [facility] LABORATORY BE Art -8.7 (L) -3.0 - 3.0 [facility] mmol/L [facility] LABORATORY Hgb Blood Gas 11.7 (L) 13.7 - [facility] 16.5 gm/dL [facility] LABORATORY O2HB Art 94.2 94.0 - [facility] 97.0 % [facility]OR[facility]ORY COHB Art 0.5 % [facility] Comment: Nonsmokers: 0.5-1.5% COHB Smokers: Variable, but usually less than 10% Toxic: 20-30% COHB Lethal: Greater than 60% COHB METHB Art 0.6 <=1.5 % [facility] LABORATORY Na Whole Blood 133 (L) 135 - 145 mmol/L [facility] LABORATORY K Whole Blood 3.8 3.5 - 5.0 mmol/L [facility] LABORAT[facility] Comment: Please note: Patients with WBC >100,000 may have falsely elevated Potassium levels. Contact the Clinical Chemistry L aboratory if there are any questions. ICa Whole Blood 1.10 (L) 1.15 - 1.33 mmol/L [facility] Comment: Note: ??Total bilirubin higher than 20 m g/dL may lead to falsely low ionized calcium. CL Whole Blood 109 (H) 98 - 107 mmol/L [facility] LABORATORY Gluc Whole Bld 120 65 - 199 mg/dL [facility] LABORATORY Comment: Diabetes: >=200 mg/dL plus symp toms. Lactate WB 0.8 0.5 - 2.2 mmol/L [facility] LABORATORY FIO2 Art 100 % [facility] LABORAT[facility] PF Ratio Art 76 [facility] LABORATORY Specimen Anatomical Collection Method Collection Time Receive d Time (Source) Location / / Volume Laterality Blood specimen 11/30/2019 10:39 0 (specimen) PM EDT 10:39 PM EDT Gretchen Yoon MD CHEMISTRY ORDERABLES Performing Organization Address City/[facility]/[place] [address] EKG 12 Lead (11/30/2019 [...] (Bezet) Calculated P 12 degrees MUSE SYSTEM [place] Calculated R 19 degrees MUSE SYSTEM [place] Calculated T -47 degrees MUSE SYSTEM [place] INTERPRETATION Sinus rhythm with Premature supraventricular complexes [...] Yoon MD ECG ORDERABLES Performing Organization Address City/[facility]/ZIP Code Phon e Number MUSE SYSTEM (ABNORMAL) Urinalysis Microscopic Exam (11/30/2019 8:40 PM EDT) P athologist Signature RBC UA 27 (H) 0 - 3 /HPF [facility] WBC UA 4 (H) 0 - 3 /HPF [facility] Hyaline Cast 3 (H) 0 - 2 /LPF [facility] LABORATORY Specimen (Source) Anatomical Collection Method Collection Time Re ceived Time Location / / Volume Laterality Urine specimen 11/30/2019 8:40 11/30/2019 obtained via PM EDT 10:51 PM EDT indwelling urinary catheter (specimen) Resulting Agency Comment Spec In Lab Rossy Winn MD URINE ORDERABLES Performing Organization Address City/State/ZIP Code Phon e Number [address] (ABNORMAL) Urinalysis with reflex Culture (11/30/2019 8:40 PM EDT) Patholo gist Method Time Signature Glucose UA Negative Negative [facility] mg/dL [facility] Protein UA Negative Negative [facility] mg/dL [facility] Bilirubin UA Negative Negative [facility] mg/dL [facility] Comment: Clinical correlation required for positi ve Urine Bilirubin results as false positive may occur with some drugs and d rug related products. If a false positive is suspected a serum total bili morales should be considered if clinically indicated. Urobilinogen UA Normal Normal mg/dL [facility] LABORATORY pH UA 5.5 5.0 - 8.0 [facility] LABORATORY Blood UA Moderate (A) Negative mg/dL [facility] LABORATORY Ketones UA 40 (A) Negative mg/dL [facility] Nitrite UA Negative Negative [facility] LABOR[facility]ORY Leukocytes UA Trace (A) Negative [facility] LABORATORY Appearance UA Clear Clear [facility] LABORATORY Spec Bascom UA 1.026 1.006 - 1.030 [facility] LABORATORY Color UA Yellow Yellow [facility] LABORATORY Culture Reflexed No [facility] LABORATORY Specimen (Source) Anatomical Collection Method Collection Time Re ceived Time Location / / Volume Laterality Urine specimen 11/30/2019 8:40 11/30/2019 obtained via PM EDT 10:51 PM EDT indwelling urinary catheter (specimen) Resulting Agency Comment Spec In Lab Gretchen Yoon MD URINE ORDERABLES Performing Organization Address City/[facility]/ZIP Code Phon e Number [address] (ABNORMAL) pro-Brain Natriuretic Peptide (11/30/2019 8:30 PM EDT) P athologist Signature ProBNP 2,802 (H) <=125 [place] pg/mL [facility] LABORATORY Specimen Anatomical Collection Method Collection Time Receive d Time (Source) Location / / Volume Laterality Blood specimen Venous Draw / 11/30/2019 8:30 PM 2019 8:36 (specimen) Unknown EDT PM EDT Resulting Agency Comment Spec In Lab Rossy Winn MD CHEMISTRY ORDERABLES Performing Organization Address City/[facility]/[place] [address] (ABNORMAL) Troponin (11/30/2019 8:30 PM EDT) athologist Signature Troponin-T 5.04 (H) 0.00 - [place] MON[place] 0.00 ng/mL [facility] Comment: The 99th percentile [...] additional sample may be indicated. Reference: Third [place] Definition of Myocardial Infarction. Journal of the [place] [employer] 2012;60:1581-98 Specimen Anatomical Collection Method Collection Time Receive d Time (Source) Location / / Volume Laterality Blood specimen Venous Draw / 11/30/2019 8:30 PM 2019 8:36 (specimen) Unknown EDT PM EDT Resulting Agency Comment Spec In Lab Rossy Winn MD CHEMISTRY ORDERABLES Performing Organization Address City/[facility]/[place] [address] [facility] [address] Magnesium (11/30/2019 8:30 PM EDT) athologist Signature Magnesium 0.79 0.69 - 1.07 [facility] mmol/L [facility] LABORATORY Specimen Anatomical Collection Method Collection Time Receive d Time (Source) Location / / Volume Laterality Blood specimen 11/30/2019 8:30 PM 020 8:35 (specimen) EDT PM EDT Resulting Agency Comment Spec In Lab Gretchen Yoon MD CHEMISTRY ORDERABLES Performing Organization Address City/State/ZIP Code Phon e Number [place] [phone] [facility] LAB[address]ORY Drive (ABNORMAL) Basic Metabolic Panel (non-fasting) (11/30/2019 8:30 PM EDT) athologist Signature Glucose Lvl 132 65 - 199 [facility] mg/dL [facility] Comment: Diabetes: >=200 mg/dL plus symp toms BUN 12 10 - 20 mg/dL [facility] LABORATORY Creatinine 0.94 0.80 - 1.50 mg/dL [facility] LABORATORY Sodium 136 135 - [...] Chloride 108 (H) 98 - 107 mmol/L [facility] CO2 17 (L) 22 - 31 mmol/L [facility] Anion Gap 11 5 - 15 mmol/L [facility] LABORATORY Calcium 7.9 (L) 8.5 - 10.5 mg/dL [facility] LABORATORY Estimated GFR 80 >=60 mL/min/1.73 m?? [facility] Comment: The eGFR was calculated using the CKD-EP I equation. As with all creatinine based estimates of kidney function, eGFR values calculated with the CKD-EPI equation are not accurate in patients wi th acute kidney failure, extremes of body mass or the acutely ill. [email or web address]IRVIEWnkf eGFR 93 >=60 mL/min/1.73 m?? [facility] Comment: The eGFR was calculated using the CKD-EP I equation. As with all creatinine based estimates of kidney function, eGFR values calculated with the CKD-EPI equation are not accurate in patients wi th acute kidney failure, extremes of body mass or the acutely ill. [email or web address]VIEWnkf Specimen Anatomical Collection Method Collection Time Receive d Time (Source) Location / / Volume Laterality Blood specimen 11/30/2019 8:30 PM 020 8:35 (specimen) EDT PM EDT Resulting Agency Comment Spec In Lab Gretchen Yoon MD CHEMISTRY ORDERABLES Performing Organization Address [facility] Phon e Number [address] Blood culture (11/30/2019 8:30 [...] - BLOOD ORDERAB LES Performing Organization Address [facility] Phon e Number [address] Blood culture (11/30/2019 8:30 PM EDT) Patholo gist Method Time Signature Blood Culture No growth [place] MARSHD[place] at [address] [facility] Specimen Anatomical Collection Method Collection Time Receive d Time (Source) Location / / Volume Laterality Blood specimen 11/30/2019 8:30 PM 020 9:40 (specimen) EDT PM EDT Comment: R HAND Resulting Agency Comment Spec In Lab Gretchen Yoon MD MICROBIOLOGY - BLOOD ORDERAB LES Performing Organization Address City/State/ZIP Code Phon e Number [place] [phone] HOSPITAL LABOR[address]ORY Drive XR Chest One View [...] Art 7.45 7.35 - [facility] 7.45 [facility] LABORATORY pCO2 Art 27 (L) 35 - 45 [facility] mmHg [facility]OR[facility]ORY pO2 Art 68 (L) 85 - 104 [facility] mmHg [facility]OR[facility]ORY HCO3 Art 18.2 (L) 20.0 - [facility] 26.0 [facility] mmol/L [facility] LABORATORY BE Art -5.9 (L) -3.0 - 3.0 [facility] mmol/L [facility] LABORATORY Hgb Blood Gas 12.4 (L) 13.7 - [facility] 16.5 gm/dL [facility]OR[facility] O2HB Art 93.1 (L) 94.0 - [facility] 97.0 % [facility]OR[facility]ORY COHB Art 0.8 % [facility] Comment: Nonsmokers: 0.5-1.5% COHB Smokers: Variable, but usually less than 10% Toxic: 20-30% COHB Lethal: Greater than 60% COHB METHB Art 0.4 <=1.5 % [facility]OR[facility] Na Whole Blood 133 (L) 135 - 145 mmol/L [facility] K Whole Blood 3.6 3.5 - 5.0 mmol/L [facility] Comment: Please note: Patients with WBC >100,000 may have falsely elevated Potassium levels. Contact the Clinical Chemistry L aboratory if there are any questions. ICa Whole Blood 1.13 (L) 1.15 - 1.33 mmol/L [facility] Comment: Note: ??Total bilirubin higher than 20 m g/dL may lead to falsely low ionized calcium. CL Whole Blood 108 (H) 98 - 107 mmol/L [facility] Gluc Whole Bld 121 65 - 199 mg/dL [facility] Comment: Diabetes: >=200 mg/dL plus symp toms. Lactate WB 1.2 0.5 - 2.2 mmol/L [facility] LABORATORY Flow Art 5.0 LPM [facility]OR[facility] Specimen Anatomical Collection Method Collection Time Receive d Time (Source) Location / / Volume Laterality Blood specimen 11/30/2019 8:09 PM 020 8:09 (specimen) EDT PM EDT Gretchen Yoon MD CHEMISTRY ORDERABLES Performing Organization Address City/State/[place] [address] Angiogram [place] [facility] [place] (11/30/2019 4:36 PM EDT) Anatomical [...] CT HEAD WO CONTRAST (GENERIC), CT ANGIOGRAM [place] CLINICAL HISTORY: Headache, intracranial hemorrhage suspected F/U on known ICH - assessing for propaga tion TECHNIQUE: CT head performed without intravenous co ntrast administration. CT angiogram [place] 65 cc Omnipaque 350 administered [...] HEAD WO CONTRAST (GENERI C), CT ANGIOGRAM [place] CLINICAL HISTORY: Headache, intracranial hemorrhage suspected F/U on known ICH - assessing for propaga tion TECHNIQUE: CT head performed without intravenous co ntrast administration. CT angiogram [place] 65 cc Omnipaque 350 administered [...] Angel Luis Barboza MD, [facility] ([phone]), at 11/30/2019 5:04 PM Narrative 11/30/2019 5:04 PM EDT EXAMINATION: CT HEAD WO CONTRAST (GENERIC), CT ANGIOGRAM [place] CLINICAL HISTORY: Headache, intracranial hemorrhage suspected F/U on known ICH - assessing for propaga tion TECHNIQUE: CT head performed without intravenous co ntrast administration. CT angiogram [place] 65 cc Omnipaque 350 administered [...] HEAD WO CONTRAST (GENERI C), CT ANGIOGRAM [place] CLINICAL HISTORY: Headache, intracranial hemorrhage suspected F/U on known ICH - assessing for propaga tion TECHNIQUE: CT head performed without intravenous co ntrast administration. CT angiogram [place] 65 cc Omnipaque 350 administered [...] Angel Luis Barboza MD, [facility] ([phone]), at 11/30/2019 5:04 PM Gretchen Yoon MD [...] 453 ms MUSE SYSTEM (Bezet) Calculated P [place] 52 degrees MUSE SYSTEM Calculated R [place] 5 degrees MUSE SYSTEM Calculated T [place] -60 degrees MUSE SYSTEM INTERPRETATION Sinus rhythm [...] H ? (Age): 1945(74y) Med Rec#: ? [id number] ?Sex: ?M ? Site Loc: ? [facility] ?Ht / Wt: ??178(cm)/64(kg) Pt. Loc: ?CCU ? BSA: ?1.8 Study Date: ?? 11/30/2019 ?Pt. Type: Inpatient Tape: ? Referring: LAHEYMICHAELJ Reading: Tello Mejia ([id number]) Compliance Associate: Eve Lolita Diagnosis: *ST elevation (STEMI) myocardial [...] Vmax ?0.58 ? m/sec ? MV deceleration [id number] ? m sec ? MV A-wave Vmax [...] ? Mid-Inferior ?Akinetic ? Mid-Inferoseptal ?Normal ? [place]-Septal ? Normal ? [place]-Anterior ? Normal ? [place]-Lateral ?Normal ? [place]-Inferior ? Hypokinetic ? [place]-Tip ?Normal ? This report has been electronically sign ed by: _ Tello Mejia MD ? 11/30/2019 12: 45:27 Images reviewed and interpretation [facility] Procedure Note Tello Mejia MD - 11/30/2019Formatti ng of this note might be different from the original. Procedure: Transthoracic Echocardiogram Patient: RITA Corcoran DOB(Age): [birth year](74y) Med Rec#: [id number] Sex: M Site Loc: [facility] Ht / Wt: 178(cm)/64(kg) Pt. Loc: CCU BSA: 1.8 Study Date: 11/30/2019 Pt. Type: Inpatie nt Tape: Referring: GILMER Reading: Tello Mejia ([id number]) Compliance Associate: Eve Lolita Diagnosis: *ST elevation (STEMI) myocardial [...] MV E-wave Vmax 0.58 m/sec MV deceleration [id number] msec MV A-wave Vmax 0.74 m/sec MV [...] Hypokinetic Mid-Posterolateral Hypokinetic Mid-Inferior Akinetic Mid-Inferoseptal Normal [place]-Septal Normal [place]-Anterior Normal [place]-Lateral Normal [place]-Inferior Hypokinetic [place]-Tip Normal This report has been electronically sign ed by: _ Tello Mejia MD 11/30/2019 12:45:27 Images reviewed and interpretation verif ied [facility] Cardiac Ultrasound Laboratory Gretchen Yoon MD [...] For questions regarding this report, please contact [facility] number below. ? Electronically signed by: Angel Luis Barboza MD, [facility] ([phone]), at 11/30/2019 12:04 PM Narrative 11/30/2019 12:04 [...] athologist Signature Magnesium 0.88 0.69 - 1.07 [facility] mmol/L [facility] LABORATORY Specimen Anatomical Collection Method Collection Time Receive d Time (Source) Location / / Volume Laterality Blood specimen Venous Draw / 11/30/2019 8:30 AM 2019 8:37 (specimen) Unknown EDT AM EDT Resulting Agency Comment Spec In Lab Rossy Winn MD CHEMISTRY ORDERABLES Performing Organization Address City/[facility]/[place] [address] (ABNORMAL) CK (11/30/2019 8:30 AM EDT) athologist Signature CK, Total 1,645 (H) 0 - 200 [facility] unit/[facility] LABORATORY Specimen Anatomical Collection Method Collection Time Receive d Time (Source) Location / / Volume Laterality Blood specimen 11/30/2019 8:30 AM 020 8:32 (specimen) EDT AM EDT Resulting Agency Comment Spec In Lab Gretchen Yoon MD CHEMISTRY ORDERABLES Performing Organization Address City/[facility]/[place] [address] (ABNORMAL) Troponin (11/30/2019 8:30 AM EDT) P athologist Signature Troponin-T 8.04 (H) 0.00 - [place] MONAE 0.00 ng/mL [facility] Comment: result rechecked-rancho The [...] additional sample may be indicated. Reference: Third [place] Definition of Myocardial Infarction. Journal of the [place] [employer] 2012;60:1581-98 Specimen Anatomical Collection Method Collection Time Receive d Time (Source) Location / / Volume Laterality Blood specimen 11/30/2019 8:30 AM 020 8:32 (specimen) EDT AM EDT Resulting Agency Comment Spec In Lab Gretchen Yoon MD CHEMISTRY ORDERABLES Performing Organization Address City/State/ZIP Code [place] [address] EKG 12 Lead (11/30/2019 7:57 AM EDT) Component Value Ref Range Test Analysis Performed Pathologis t Method Time At Signature Ventricular rate 64 BPM MUSE SYSTEM Atrial Rate 64 BPM MUSE SYSTEM P-R Interval 132 ms MUSE SYSTEM QRS Duration 78 ms MUSE SYSTEM Q-T Interval 420 ms MUSE SYSTEM QTC Calculated 433 ms MUSE SYSTEM (Bezet) Calculated P [place] 28 degrees MUSE SYSTEM Calculated R [place] 7 degrees MUSE SYSTEM Calculated T [place] -33 degrees MUSE SYSTEM INTERPRETATION Sinus rhythm [...] 65 - 99 [facility] Fasting mg/dL [facility] LABORATORY Comment: ?Fasting* Glucose Interpretive [...] LABORATORY Creatinine 0.90 0.80 - 1.50 mg/dL [facility] LABORATORY Sodium 135 135 - [...] Chloride 108 (H) 98 - 107 mmol/L [facility] CO2 16 (L) 22 - 31 mmol/L [facility] Anion Gap 11 5 - 15 mmol/L [facility] LABORATORY Calcium 7.5 (L) 8.5 - 10.5 mg/dL [facility] LABORATORY Estimated GFR 84 >=60 mL/min/1.73 m?? [facility] Comment: The eGFR was calculated using the CKD-EP I equation. As with all creatinine based estimates of kidney function, eGFR values calculated with the CKD-EPI equation are not accurate in patients wi th acute kidney failure, extremes of body mass or the acutely ill. [email or web address] FAIRVIEWnkf eGFR 98 >=60 mL/min/1.73 m?? [facility] Comment: The eGFR was calculated using the CKD-EP I equation. As with all creatinine based estimates of kidney function, eGFR values calculated with the CKD-EPI equation are not accurate in patients wi th acute kidney failure, extremes of body mass or the acutely ill. [email or web address]/[facility]IRVIEWnkf Specimen Anatomical Collection Method Collection Time Receive d Time (Source) Location / / Volume Laterality Blood specimen 11/30/2019 2:15 AM 020 2:29 (specimen) EDT AM EDT Resulting Agency Comment Spec In Lab Gretchen Yoon MD CHEMISTRY ORDERABLES Performing Organization Address City/State/[place] [address] (ABNORMAL) Hemogram (11/30/2019 2:15 AM EDT) Analysis Performed At Patho logist Time Signature WBC 11.2 (H) 4.0 - 9.5 [facility] x10(3)/[facility] LABORATORY RBC 3.83 (L) 4.58 - [facility] 5.54 [facility] x10(6)/[facility] LABORATORY Hemoglobin 11.4 (L) 13.7 - [facility] 16.5 gm/dL [facility] Hematocrit 35.2 (L) 40.5 - M[place]INA WHITTENCOCK 48.5 % [facility] MCV 91.9 82.9 - [place] DOV 93.1 [facility] LABORATORY MCH 29.8 27.5 - M[place] MARSHDOV 32.1 pg [facility] MCHC 32.4 32.0 - [place] MARSHDOV 35.7 gm/dL [facility] Platelets 122 (L) 145 - 357 [facility] x10(3)/[facility] LABORATORY RDWSD 49.8 (H) 36.0 - [place] MARSHDOV 45.0 [facility] LABORATORY RDWCV 14.8 (H) 11.4 - [facility] DOV 13.8 % [facility] MPV 12.1 7.6 - 12.9 [facility] LABORATORY nRBC % Auto 0.0 % [facility] nRBC Abs Auto 0.000 0.000 - [place] DOV 0.000 [facility] x10(3)/[facility] LABORATORY Specimen Anatomical Collection Method Collection Time Receive d Time (Source) Location / / Volume Laterality Blood specimen 11/30/2019 2:15 AM 020 2:29 (specimen) EDT AM EDT Resulting Agency Comment Spec In Lab Gretchen Yoon MD HEMATOLOGY ORDERABLES Performing Organization Address City/[facility]/[place] [address] (ABNORMAL) CK (11/30/2019 2:15 AM EDT) athologist [facility] CK, Total 1,969 (H) 0 - 200 M[place] DOV unit/L [facility] Specimen Anatomical Collection Method Collection Time Receive d Time (Source) Location / / Volume Laterality Blood specimen 11/30/2019 2:15 AM 020 2:29 (specimen) EDT AM EDT Resulting Agency Comment Spec In Lab Gretchen Yoon MD CHEMISTRY ORDERABLES Performing Organization Address City/[facility]/[place] [address] (ABNORMAL) Troponin (11/30/2019 2:15 AM EDT) athologist Signature Troponin-T 11.73 (H) 0.00 - M[place] MONAE 0.00 ng/mL [facility] Comment: result rechecked-slw The [...] additional sample may be indicated. Reference: [place] Definition of Myocardial Infarction. Journal of the [...] additional sample may be indicated. Reference: [place] Definition of Myocardial Infarction. Journal of the [...] Yoon MD CHEMISTRY ORDERABLES Performing Organization Address City/[facility]/ZIP Code Phon e Number [address] LDL Cholesterol, Direct (11/30/2019 2:15 AM EDT) P athologist Signature LDL Chol 156 mg/dL [facility] LABORATORY Comment: Lowest Risk: <100 mg/dL Lower Risk: 100-129 mg/dL Borderline High Risk: 130-159 mg/dL High Risk: 160-189 mg/dL Very High Risk: >mt=942 mg/dL Specimen Anatomical Collection Method Collection Time Receive d Time (Source) Location / / Volume Laterality Blood specimen 11/30/2019 2:15 AM 020 2:29 (specimen) EDT AM EDT Resulting Agency Comment Spec In Lab Gretchen Yoon MD CHEMISTRY ORDERABLES Performing Organization Address City/[facility]/ZIP [facility] [place] [address] (ABNORMAL) Hemoglobin A1c (11/30/2019 [...] Avg Gluc See note mg/dL MELINA MONAE [facility] Comment: Estimated Average Glucose [...] into estimated average glucose values. ??Diabetes Care 2008:31(8):4754-8082. Specimen Anatomical Collection Method Collection Time Receive d Time (Source) Location / / Volume Laterality Blood specimen 11/30/2019 2:15 AM 020 2:29 (specimen) EDT AM EDT Resulting Agency Comment Spec In Lab Gretchen Yoon MD CHEMISTRY ORDERABLES Performing Organization Address City/State/ZIP Code [place] [address] Lipid Panel (Reflex Direct LDL) (11/30/2019 2:15 AM EDT) athologist Signature Chol, Total 195 mg/dL [facility] Comment: Lower Risk: <200 mg/dL Average Risk: 200-239 mg/dL Higher Risk: >kv=246 mg/dL Triglycerides 93 mg/dL [facility] Comment: Average Risk/Lower Risk: <150 mg/dL Borderline High Risk: 150-199 mg/dL High Risk: 200-499 mg/dL Very High Risk: >mw=923 mg/dL HDL 32 mg/dL [facility] Comment: Males: ?? Higher Risk: <40 mg/dL Females: ?? HIgher Risk: <50 mg/dL LDL Cholesterol 144 mg/dL [facility] Comment: Lowest Risk: <100 mg/dL Lower Risk: 100-129 mg/dL Borderline High Risk: 130-159 mg/dL High Risk: 160-189 mg/dL Very High Risk: >ts=398 mg/dL Chol/HDL Ratio 6.1 ratio [facility] Lipid Interpretation See Note [facility] Comment: Lipid management should be guided by a p atient? s ASCVD risk, goals and preferences. ACC/AHA Guidelines recommend high intens ity statin if clinical ASCVD or LDL greater than or equal to 190 mg/dL. http://Traetelo.[email or web address].FasterPants/WWR-QOL-Uunbmaxyx Adults aged 40-75 with LDL 70-189 mg/dL should have their 10 year ASCVD risk estimated with the ACC/AHA ASCVD risk es timator http://tools.acc.org/YXDPJ-Hcsq-Lvohxpjp r/ Statin should be discussed if risk [...] Address City/State/ZIP Code Phon e Number [address] (ABNORMAL) CK (11/29/2019 6:35 PM EDT) athologist Signature CK, Total 2,780 (H) 0 - 200 [facility] unit/L [facility] Specimen Anatomical Collection Method Collection Time Receive d Time (Source) Location / / Volume Laterality Blood specimen 11/29/2019 6:35 PM 020 6:53 (specimen) EDT PM EDT Resulting Agency Comment Spec In Lab Gretchen Yoon MD CHEMISTRY ORDERABLES Performing Organization Address City/[facility]/[place] [address] (ABNORMAL) Troponin (11/29/2019 6:35 PM EDT) athologist Signature Troponin-T 17.60 (H) 0.00 [facility] ng/mL [facility] Comment: result rechecked-az The [...] additional sample may be indicated. Reference: [place] Definition of Myocardial Infarction. Journal of the [place] [employer] 2012;60:1581-98 Specimen Anatomical Collection Method Collection Time Receive d Time (Source) Location / / Volume Laterality Blood specimen 11/29/2019 6:35 PM 020 6:53 (specimen) EDT PM EDT Resulting Agency Comment Spec In Lab Gretchen Yoon MD CHEMISTRY ORDERABLES Performing Organization Address City/State/ZIP Code Phon e Number [place] [id number] EKG 12 Lead (11/29/2019 3:58 PM EDT) [facility] gist Method Time Signature Ventricular rate 73 BPM MUSE SYSTEM Atrial Rate 73 BPM MUSE SYSTEM P-R Interval 152 ms MUSE SYSTEM QRS Duration 84 ms MUSE SYSTEM Q-T Interval 404 ms MUSE SYSTEM QTC Calculated 445 ms MUSE SYSTEM (Bezet) Calculated P [place] 50 degrees MUSE SYSTEM Calculated R [place] -4 degrees MUSE SYSTEM Calculated T [place] 19 degrees MUSE SYSTEM INTERPRETATION Sinus rhythm [...] Concepcion MD ECG ORDERABLES Performing Organization Address City/[facility]/ZIP Code Phon e Number MUSE [...] lung apex is excluded from the imaged [id number]. IMPRESSION: 1. ??New right internal jugular pulmonar [...] below. ? Electronically signed by: Devin Solis [facility] ([phone]), at 11/29/2019 4:36 PM Narrative 11/29/2019 4:36 [...] lung apex is excluded from the imaged [id number]. Procedure Note Estefani Harris MD - 11/29/2019Formattin [...] lung apex is excluded from the imaged [id number]. IMPRESSION 1. New right internal jugular pulmonary [...] (ABNORMAL) Differential, Automated (11/29/2019 2:32 PM EDT) [facility] Method Time Signature Neutrophils % 83.8 % [facility] Neutr Abs (ANC) 12.12 (H) 1.70 - [facility] 6.10 [facility] x10(3)/[facility] LABORATORY Lymphocytes % 9.1 % [facility] Lymphocytes Abs 1.3 0.9 - 3.2 [facility] x10(3)/[facility] LABORATORY Monocytes % 6.2 % [facility] Monocyte Abs 0.9 0.3 - 0.9 [facility] x10(3)/[facility] LABORATORY Eosinophils % 0.0 % [facility] Eosinophils Abs 0.0 0.0 - 0.4 [facility] x10(3)/[facility] LABORATORY Basophils % 0.3 % [facility] Basophils Abs 0.0 0.0 - 0.1 [facility] x10(3)/[facility] LABORATORY Immature Gran % 0.60 % [facility] Comment: Immature granulocytes(IG's)percentage an [...] Organization Address City/State/[place] [address] (ABNORMAL) Hemogram (11/29/2019 2:32 PM EDT) Analysis Performed At Patho logist Time Signature WBC 14.5 (H) 4.0 - 9.5 [facility] x[facility](3[facility] LABORATORY RBC 4.53 (L) 4.58 - [facility] DOV 5.54 [facility] x10(6)/[facility] LABORATORY Hemoglobin 13.1 (L) 13.7 - [facility] 16.5 gm/dL [facility] Hematocrit 40.8 40.5 - [facility] DOV 48.5 % [facility] MCV 90.1 82.9 - [facility] 93.1 [facility] LABORATORY MCH 28.9 27.5 - [facility] DOV 32.1 pg [facility] MCHC 32.1 32.0 - [facility] DOV 35.7 gm/dL [facility] Platelets 184 145 - 357 [facility] x10(3)/[facility] LABORATORY RDWSD 47.8 (H) 36.0 - [facility] DOV 45.0 [facility] LABORATORY RDWCV 14.5 (H) 11.4 - [facility] DOV 13.8 % [facility] MPV 11.9 7.6 - 12.9 [facility] LABORATORY nRBC % Auto 0.0 % [facility] nRBC Abs Auto 0.000 0.000 - [place] 0.000 [facility] x10(3)/[facility] LABORATORY Specimen Anatomical Collection Method Collection Time Receive d Time (Source) Location / / Volume Laterality Blood specimen 11/29/2019 2:32 PM 020 2:55 (specimen) EDT PM EDT Resulting Agency Comment Spec In Lab Darrell Glasgow MD HEMATOLOGY ORDERABLES Performing Organization Address City/[facility]/ZIP Code Phon e Number [address] (ABNORMAL) CK (11/29/2019 2:32 PM EDT) athologist Signature CK, Total 3,282 (H) 0 - 200 [facility] unit/L [facility] Specimen Anatomical Collection Method Collection Time Receive d Time (Source) Location / / Volume Laterality Blood specimen 11/29/2019 2:32 PM 020 2:32 (specimen) EDT PM EDT Resulting Agency Comment Spec In Lab Gretchen Yoon MD CHEMISTRY ORDERABLES Performing Organization Address City/[facility]/[place] [address] (ABNORMAL) Troponin (11/29/2019 2:32 PM EDT) athologist Signature Troponin-T 20.33 (H) 0.00 - [place] MONAE 0.00 ng/mL [facility] Comment: The 99th percentile [...] additional sample may be indicated. Reference: [place] Definition of Myocardial Infarction. Journal of the [place] College of Cardiology 2012;60:1581-98 Specimen Anatomical Collection Method Collection Time Receive d Time (Source) Location / / Volume Laterality Blood specimen 11/29/2019 2:32 PM 020 2:32 (specimen) EDT PM EDT Resulting Agency Comment Spec In Lab Gretchen Yoon MD CHEMISTRY ORDERABLES Performing Organization Address [facility] [place] [address] (ABNORMAL) APTT (11/29/2019 2:32 PM EDT) P athologist Signature PTT 114 25 - 37 [facility] (Critical) Formerly [facility], [facility]–1983 [...] Yoon MD HEMATOLOGY ORDERABLES Performing Organization Address City/[facility]/[place] [address] (ABNORMAL) Prothrombin Time (11/29/2019 2:32 PM EDT) P athologist Signature PT 13.5 (H) 9.4 - 12.5 [facility] LABORATORY INR 1.2 [facility] Comment: An INR <2.0 [...] Organization Address City/State/[place] [address] (ABNORMAL) Hepatic Function Panel (11/29/2019 2:32 PM EDT) athologist Signature Total Protein 6.3 6.1 - 8.0 [facility] DOV gm/dL [facility] Albumin 3.6 3.2 - 5.2 [place] DOV gm/dL [facility] AST 257 (H) 0 - 39 [facility] DOV unit/L [facility] ALT 50 0 - 55 [facility] DOV unit/L [facility] Alk Phos 84 40 - 130 [facility] DOV unit/L [facility] Total 0.3 0.2 - 1.3 [place] DOV Bilirubin mg/dL [facility] Bili, Direct 0.1 0.0 - 0.3 [facility] DOV mg/dL [facility] Specimen Anatomical Collection Method Collection Time Receive d Time (Source) Location / / Volume Laterality Blood specimen 11/29/2019 2:32 PM 020 2:32 (specimen) EDT PM EDT Resulting Agency Comment Spec In Lab Gretchen Yoon MD CHEMISTRY ORDERABLES Performing Organization Address City/State/[place] [address] (ABNORMAL) pro-Brain Natriuretic Peptide (11/29/2019 2:32 PM EDT) P athologist Signature ProBNP 272 (H) <=125 pg/mL [facility] Specimen Anatomical Collection Method Collection Time Receive d Time (Source) Location / / Volume Laterality Blood specimen 11/29/2019 2:32 PM 020 2:32 (specimen) EDT PM EDT Resulting Agency Comment Spec In Lab Gretchen Yoon MD CHEMISTRY ORDERABLES Performing Organization Address City/[facility]/ZIP Code Phon e Number [address] Magnesium (11/29/2019 2:32 PM EDT) athologist Signature Magnesium 0.76 0.69 - 1.07 [facility] mmol/L [facility] Specimen Anatomical Collection Method Collection Time Receive d Time (Source) Location / / Volume Laterality Blood specimen 11/29/2019 2:32 PM 020 2:32 (specimen) EDT PM EDT Resulting Agency Comment Spec In Lab Gretchen Yoon MD CHEMISTRY ORDERABLES Performing Organization Address City/[facility] [place] [address] (ABNORMAL) Basic Metabolic Panel (non-fasting) (11/29/2019 2:32 PM EDT) athologist Signature Glucose Lvl 149 65 - 199 [facility] mg/dL [facility] Comment: Diabetes: >=200 mg/dL plus symp toms BUN 16 10 - 20 mg/dL [facility] Creatinine 0.94 0.80 - 1.50 mg/dL [facility] Sodium 135 135 - [...] estions. Chloride 105 98 - 107 mmol/L [facility] CO2 15 (L) 22 - 31 mmol/L [facility] Anion Gap 15 5 - 15 mmol/L [facility] Calcium 8.0 (L) 8.5 - 10.5 mg/dL [facility] Estimated GFR 80 >=60 mL/min/1.73 m?? [facility] Comment: The eGFR was calculated using the CKD-EP I equation. As with all creatinine based estimates of kidney function, eGFR values calculated with the CKD-EPI equation are not accurate in patients wi th acute kidney failure, extremes of body mass or the acutely ill. http://[place]/[facility] FAIRVIEWnkf eGFR 93 >=60 mL/min/1.73 m?? [facility] Comment: The eGFR was calculated using the CKD-EP I equation. As with all creatinine based estimates of kidney function, eGFR values calculated with the CKD-EPI equation are not accurate in patients wi th acute kidney failure, extremes of body mass or the acutely ill. http://[place]/[facility]IRVIEWnkf Specimen Anatomical Collection Method Collection Time Receive d Time (Source) Location / / Volume Laterality Blood specimen 11/29/2019 2:32 PM 020 2:32 (specimen) EDT PM EDT Resulting Agency Comment Spec In Lab Gretchen Yoon MD CHEMISTRY ORDERABLES Performing Organization Address City/State/ZIP Code Phon e Number [place] [id number]OS[address] LAB[address] EKG 12 Lead (11/29/2019 11:38 AM EDT) [facility] gist Method Time Signature Ventricular rate 60 BPM MUSE SYSTEM Atrial Rate 60 BPM MUSE SYSTEM P-R Interval 140 ms MUSE SYSTEM QRS Duration 86 ms MUSE SYSTEM Q-T Interval 474 ms MUSE SYSTEM QTC Calculated 474 ms MUSE SYSTEM (Bezet) Calculated P [place] 48 degrees MUSE SYSTEM Calculated R [place] 14 degrees MUSE SYSTEM Calculated T [place] 58 degrees MUSE SYSTEM INTERPRETATION Normal sinus [...] Laterality Volume Narrative 11/30/2019 1:09 PM EDT ?[facility] ? Cardiac Cathete rization/Intervention Report ? Patient Name: Angel Luis Salinas. ? Procedure Date: 11/29/2019 ? A #: [id number] ? Primary Physician: Gretchen Yoon ? Case #: [id number] ? File Name: [id number] ? Catheterization Order Number: [id number] ? [facility] ? Final Report [place], [place] ? Patient Name: ? Angel Luis Salinas ? ID#: ?[id number] ? : ?1945 ? Procedure Date: ? [...] procedure was Emergent. The indication for ?the yard laborer visit is ACS less than or [...] dose administered prior to arrival in the yard laborer. ?Recommended anti-platelet/anti- thrombotic regimen: ?Continue aspirin [...] note might be different from the original. [facility] Cardiac Catheterization/Intervention Re port Patient Name: Angel Luis Salinas Procedure Date: 11/29/2019 A #: [id number] Primary Physician: Gretchen Yoon Case #: [id number] File Name: [id number] Catheterization Order Number: [id number] [facility] Final Report [place], [place] Patient Name: AngelL uis Salinas ID#: [id number] : 1945 Procedure Date: November 29, [...] was designated as ASA Class IV. The [facility] clinical frailty scale is 4: Vulnerable. Diagnostic Tests: Electrocardiography: EKG was assessed by ECG. EKG was Abnorm al. EKG showed ST Deviation >= 0.5 mm. Medications Prior to Procedure: Aspirin. Indications for Diagnostic Cath: The priority of the diagnostic procedur e was Emergent. The indication for the yard laborer visit is ACS less than or [...] residual stenosis following this intervention. The final IDLLON flow was 3. Mid Moderate Diffuse (<=50% [...] administered prior t o arrival in the yard laborer. Recommended anti-platelet/anti-thrombot ic regimen: Continue aspirin 81 mg daily for indefi nitely. Continue clopidogrel 75 mg daily for 12 months then stop. These recommendations are made at the t loyda of the intervention. Patient and provider preferences or a changing clinical situation may require modification of this regimen. Consult [facility] Interventional Cardiology for questions. Conclusions: * Two [...] 7.33 (L) 7.35 - [facility] 7.45 [facility] POC PCO2 33 (L) 35 - 45 [facility] mmHg [facility] POC PO2 56 (L) 85 - 104 [facility] LABORATORY POC Base Excess -8.0 (L) -3.0 - 3.0 [facility] K mmol/L [facility] POC HCO3 17.4 (L) 20.0 - [facility] 26.0 [facility] POC Sodium 137 135 - 145 [facility] mmol/L [facility] POC Potassium 3.6 3.5 - 5.0 [facility] mmol/L [facility] POC Ionized Ca 1.15 1.15 - [facility] 1.33 [facility] POC Hematocrit 37.0 (L) 40.0 - [facility] 51.0 % [facility] POC Calc Hgb 12.6 (L) 13.7 - [facility] 17.5 gm/dL [facility] Comment: The calculation of [...] Organization Address City/State/[place] [address] EKG 12 Lead (11/29/2019 9:01 AM EDT) Component Value Ref Range Test Analysis Performed Pathologis t Method Time At Signature Ventricular rate 80 BPM MUSE SYSTEM Atrial Rate 79 BPM MUSE SYSTEM QRS Duration 94 ms MUSE SYSTEM Q-T Interval 436 ms MUSE SYSTEM QTC Calculated 502 ms MUSE SYSTEM (Bezet) Calculated R [place] 54 degrees MUSE SYSTEM Calculated T [place] 80 degrees MUSE SYSTEM INTERPRETATION Normal sinus [...] 150 mg, Intravenous, ONCE, 1 dose, On [place] 12/07/19 at 1315, Warning Vesicant/Irritant Medication , [...] mL/hr 250 mL/hr, Intravenous, CONTINUOUS, Starting on [place] 12/07/19 at 0145, Until 12/07/19 at 0239 [...] ONCE, 1 dose, 12/06/19 at 0515, Ad gravity prospector over 120 Minutes magnesium sulfate 2 g [...] Bentley RN) 0704 (Rate/Dose Verify - Provider: Amaay Anderson RN)1123 (New Bag - Provider: Amaya [...] mEq(Linked Group 2) 0630 (Given - Provider: Mkuesh Bentley RN)1645 (See Alternative - Provider: Amaya [...] patch), Transdermal, DAILY, Fir st dose on [place] 11/30/19 at 1615, Until Discontinued, Routine And [...] Oral, EVERY 4 HOURS PRN, Startin g [place] 11/30/19 at 2017, Until Sun12/08/19 at 1811, hypokalemia
Administer for serum potassium (mMol/L) of 3.9 - 4 See instructions for Potassium Protocol in online policies.
Routine Or potassium chloride ER (K-Dur/Klor-Con) tablet 40 mEqJump to med 40 mEq, Oral, EVERY 4 HOURS PRN, Startin g [place] 11/30/19 at 2016, Until Sun12/08/19 at 1811, hypokalemia
Administer for serum potassium (mMol/L) of 3.6 - 3.8 See instructions for Potassium Protocol in online policies.
Routine documented in this encounter Care Teams Signs And Displays Salesperson Relationship Specialty Start Date End Date France Lam MD PCP - General 05/02/13 02/04/20 [address] [place] [address] documented as of this encounter
--- OUTSIDE RECORDS SUMMARY | 2022-05-30 11:04 | XMS_ITS | Encounter Summary ---
:1945 Author Organization [facility] Address [address] [place] [address] Care Team Providers Name Role Phone France Lam MD Primary Care Provider Reason for Visit Reason Comments Claudication Encounter Details Date Type Department Care Team Description 05/13/2013 Office Visit [place]ascular Surgery at David Sim [facility] [place] Bobby peripheral vascular [facility] dis ease, left ([address] [place]) [place], [place] VASCULAR SURGERY [address] [place] [address] [phone] Social History Tobacco Use Types Packs/Day Years [...] Sim MD - 05/13/2013 10:09 AM EST Joavny Hi Is a 68-year-old nondiabetic man who [...] 06/30/2022 Office Visit Endocrinology Alan Terrell MD [facility] ENDOCRINOLOGY [place], [place] [address] (Wo rk) documented as of this encounter Visit Diagnoses Diagnosis Claudication from peripheral vascular di sease, left - Primary Peripheral vascular disease, unspecified documented in this encounter Care Teams Bakery Products Checker Relationship Specialty Start Date End Date France Lam MD PCP - General 05/02/13 02/04/20 [address] [place] [address] documented as of this encounter
--- OUTSIDE RECORDS SUMMARY | 2022-05-30 11:04 | XMS_ITS | Encounter Summary ---
:1945 Author Organization [facility] [place] [address] Care Team Providers Name Role Phone France Lam MD Primary Care Provider Encounter Details Date Type Department Care Team Description 11/29/2019 External Results [facility] [place] [address] Social History Tobacco Use Types Packs/Day Years Used Date Smoking Tobacco: Every Day Cigarettes 0.5 Cigars Sex Assigned at Date Recorded Not on file documented as of this encounter Plan of Treatment Upcoming Encounters Date Type Specialty Care Team Description 06/30/2022 Office Visit Endocrinology Alan Terrell MD [facility] ENDOCRINOLOGY [place], [place] [address] (Wo rk) documented as of [...] on filedocumented in this encounter Care Teams Employment Security Officer Relationship Specialty Start Date End Date France Lam MD PCP - General 05/02/13 02/04/20 [address] [place] [address] documented as of this encounter
--- OUTSIDE RECORDS SUMMARY | 2022-05-30 11:04 | XMS_ITS | Encounter Summary ---
:1945 Author Organization [facility] [place] [address] Care Team Providers Name Role Phone France Lam MD Primary Care Provider Encounter Details Date Type Department Care Team Description 05/13/2013 Ancillary Vascular Surgery at [facility] (Primary Appointment [facility] [place], [place] Dx) [place] [address] Social History Tobacco Use Types Packs/Day Years Used Date Smoking Tobacco: Every Day Cigarettes 0.5 Cigars Sex Assigned at Date Recorded Not on file documented as of this encounter Plan of Treatment Upcoming Encounters Date Type Specialty Care Team Description 06/30/2022 Office Visit Endocrinology Alan Terrell MD [facility] ENDOCRINOLOGY [place], [place] [address] (Wo rk) documented as of [...] VASCUBASE Report Department: Vascular Surgery Lab Patient: [id number] (ANGEL LUIS [place]) CPT Code: 52803 ICD-9: 440.21 Referring Physician: FRANCE LAM Indication: [...] Posterior Tibial (Ankle) Art derrell ??84 ?0.64 ??[place]- Biphasic ?? Interpretation: RIGHT: ??Mild lower extremity [...] limb documented in this encounter Care Teams Restorative Aide Relationship Specialty Start Date End Date France Lam MD PCP - General 05/02/13 02/04/20 [address] [place] [address] documented as of this encounter
--- OUTSIDE RECORDS SUMMARY | 2022-05-30 11:04 | XMS_ITS | Encounter Summary ---
:1945 Author Organization [facility] [place] [address] Care Team Providers Name Role Phone France Lam MD Primary Care Provider Reason for Visit Auth/Cert Specialty Diagnoses / Procedures Referred By Contact Refer red To Contact Diagnoses STEMI (ST elevation myocardial infarction) STEMI Procedures CARDIAC CATHETERIZATION Referral ID Status Reason Start Date Expiration Date Visits Requ ested Visits Authorized [id number] 1 1 Encounter Details Date Type Department Care Team Description 11/29/2019 Surgery All Around Patternmaker Gretchen Corral, CARDIAC CATHETERIZATION [facility] [place] [address] [place] [id number] [phone] (Wo rk) Social History Tobacco Use Types [...] Luis Salinas Patient Age: 74 y.o. Language: Ivorian Race: White Ethnicity: Not nor Admit date: [...] months on: antiplatelet therapy at discretion of crown ironer - Repeat TTE in 3 months to reassess LV function - Repeat BMP in 1-2 weeks given recent start lisinopril - Referred to lipid clinic for consideration of PCSK-9 inhibitor given STEMI with intolerance of statins - Started on amiodarone this admission for recurrent rapid atrial flutter with rates ~170, recommendcontinued assessment of necessity of rhythm control strategy with crown ironer - Amiodarone monitoring recommendations as below - [...] please contact your inpatient physician through the [facility] Cane Flume Chute Operator . Issues after hours and on [...] and Compazine. He was transferred directly to [facility] via [facility] for further management. Patient had an emergent PCI with 3 MACARIO stents placed to his RCA, with mild disease of LCX (report pending) at [facility]. He was found to be persistently hypotensive requiring Levo up to 10mcg/min. He was transferred to [facility] after the cath procedure. Bedside RHC showed CI 2.12, PAWP 11, PAP 38/15 indicating hypovolemic state. He received 1L bolus of NS with improvement of his blood pressure to 124/61. History of PAD, HLD - had side reactions to statins - so taking niacin and red rye grain. Chronic active smoker with more than 65 pack years. Family history of [place] in father and two uncles. He's takingbaby [...] drip as described above. On arrival at [facility] he was taken for cardiac cath where [...] the medication cost was prohibitive at a non-[place] pharmacy. He was strongly encouraged to quit [...] priority for the procedure was Emergent. [facility] indication for the procedure was STEMI (after [...] signed by: Estefani Harris [facility] ([phone]), at 11/29/2019 4:[address] Head wo [...] Angel Luis Barboza MD, [facility] ([phone]), at 11/30/2019 12:[address] Head wo [...] signed by: [facility] Luis [facility] ([phone]), at 11/30/2019 5:[address] Angiogram [place] [facility] [place] (Exam End: 11/30/2019 4:36 PM) Impression Head CT: Stable hemorrhage in the region of the left optic tract. CTA: Negative exam. No abnormal vasculature in the area of hemorrhage. Thank you for letting us participate in the care of this patient. For questions regarding this report, please contact the number below. Electronically signed by: Angel Luis Barboza MD, [facility] ([phone]), at 11/30/2019 5:04 PM MRI Brain wo [...] Angel Luis Barboza MD, [facility] ([phone]), at 12/01/2019 8:02 PM XR Chest One [...] number below. Electronically signed by: Merari Collins [facility] ([phone]), at 12/01/2019 3:53 PM XR Chest One [...] signed by: Roselyn Luciano [facility] ([phone]), at 12/04/2019 6:16 PM MRI Brain wwo Contrast (Generic) (Exam End: 12/05/2019 7:59 PM) Impression No significant interval change. Thank you for letting us participate in the care of this patient. For questions regarding this report, please contact the number below. Electronically signed by: Merari Collins [facility] ([phone]), at 12/05/2019 10:[address] Head wo [...] number below. Electronically signed by: Merari Collins [facility] ([phone]), at 12/06/2019 10:06 PM Pending Studies and Lab Data: N/A Discharge Conditions/Prognosis: stable Discharge to: home Updated Allergies/ADRs: Allergies Allergen Reactions ??? Penicillins Pt doesn't remember reaction ??? Zndqezd-Krj-Utf Reductase Inhibitors Stiff neck, upset stomach, back [...] medications at another hospital and then at [facility] you had a stent placed in a [...] FOR ONE MONTH AND THEN STOP. Your crown ironer may tell you to start this medication again after one year. Clopidogrel (Plavix) 75 mg daily - This medication will help prevent clots from forming in your blood, which will help protect the stent that was placed in your heart vessel. TAKE THIS FOR ONE YEAR ANDTHEN DISCUSS WITH YOUR SUPERVISORY IT SPECIALIST WHETHER TO STOP. Amiodarone 400mg twice [...] follow up: Your primary care provider and crown ironer will manage your blood thinner (apixaban). You do not need lab monitoring of this medication. Diet: Please consume a healthy diet low in cholesterol Follow up Appointments: 12/10/2019 at 3:10PM with PCP Angel Luis Lott Future Appointments Date Time Provider Department Center 12/23/2019 1:30 PM Alfreda Salas APRN [facility] [id number] [facility] 12/26/2019 9:40 AM Merlin Sanchez MD [facility] CARD 4A [facility] 12/30/2019 3:40 PM Gretchen Yoon MD [address] Future Appointments and Orders Future Appointments and Orders Future Appointments Provider Department Dept Phone 12/23/2019 1:30 PM Alfreda Salas APRN Neurosurgery at [facility] Arrive at: Home [phone] Please do not come in for this visit. Your provider will call you at the number you provided. 12/26/2019 9:40 AM Merlin Sanchez MD Cardiology at [facility] Arrive at: Home [phone] Please do not come in for this visit. Your provider will call you at the number you provided. 12/30/2019 3:40 PM Gretchen Yoon MD Cardiology at [facility] Arrive at: Home [phone] Please do not come in for this visit. Your provider will call you at the number you provided. Future Orders Complete By Expires Referral to Cardiac Rehab [[id number] Custom] As directed Process Instructions: If no progress note charted, please enter Clinical details in comments. Scheduling Instructions: Questions: My question or request is: STEMI. Cardiac rehab at [facility] Referral to [facility] [REF43 Custom] As directed Process Instructions: If no progress note charted, please enter Clinical details in comments. Scheduling Instructions: Questions: My question or request is: patient with inferior stemi with history of statin allergy (rash) - please evaluate for psck9 inhibitor. Referral to Home Health - at DISCHARGE [VTE2231 CPT(R)] As directed Process Instructions: Scheduling Instructions: Comments: DOCUMENTATION FOR [facility] SERVICES PATIENT'S LOCATION: [address] [address] (home) Rooter Operator's Name: Self In discussion with the attending physician, it is certified that this patient is under his/her care and that MD, or an KNITTING DEMONSTRATOR, DITCH DIGGER, or PA who is working directly with him/her, had a vudl-fl-bdua encounter that meets the physician onqa-rm-fqpm encounter requirements with this patient on 12/07/2019. [...] for managing ADLs. HOME HEALTH CARE AGENCY: [facility], PHONE: [phone] FAX: [phone] Start of care: 24-48 hours after hospital [...] Lam MD [address] / [place] [address] All A agencies which cover the area of patient's residence have been reviewed, either verbally or in writing, and patient/family have chosen the home health care agency noted. Questions: Agency name and contact information: [facility] Patient location post discharge: Home What services are requested: Registered Nurse Physical Therapy Occupational Therapy Start date: Responsible MD post discharge contact info: PCP Your PCP: France Lam MD [phone] For questions regarding this document or issues relating to this hospitalization on the Cardiology Service, please contact your inpatient physician through the [facility] Cane Flume Chute Operator . Issues after hours and on weekends will be handled by the Geophysical Observer on-call. Patient Instructions: Neurology Your Diagnosis: Left [...] appointment in the neurology clinic at [facility]. See below for the appointment time. [...] 1:30 PM Alfreda Salas APRN Neurosurgery at [facility] Arrive at: Home [phone] Please do not come in for this visit. Your provider will call you at the number you provided. 12/26/2019 9:40 AM Merlin Sanchez MD Cardiology at [facility] Arrive at: Home [phone] Please do not come in for this visit. Your provider will call you at the number you provided. 12/30/2019 3:40 PM Gretchen Yoon MD Cardiology at [facility] Arrive at: Home [phone] Please do not come in for this visit. Your provider will call you at the number you provided. Future Orders Complete By Expires Referral to Cardiac Rehab [[id number] Custom] As directed Process Instructions: If no progress note charted, please enter Clinical details in comments. Scheduling Instructions: Questions: My question or request is: STEMI. Cardiac rehab at [facility] Referral to [facility] Treatment [facility] [REF43 Custom] As directed Process Instructions: If no progress note charted, please enter Clinical details in comments. Scheduling Instructions: Questions: My question or request is: patient with inferior stemi with history of statin allergy (rash) - please evaluate for psck9 inhibitor. Referral to Home Health - at DISCHARGE [IKK3811 CPT(R)] As directed Process Instructions: Scheduling Instructions: Comments: DOCUMENTATION FOR [facility] SERVICES PATIENT'S LOCATION: [address] [address] (home) Rooter Operator's Name: Self In discussion with the attending physician, it is certified that this patient is under his/her care and that MD, or an KNITTING DEMONSTRATOR, DITCH DIGGER, or PA who is working directly with him/her, had a ehhn-xw-bvlg encounter that meets the physician tesl-ws-tgui encounter requirements with this patient on 12/07/2019. [...] for managing ADLs. HOME HEALTH CARE AGENCY: [facility], PHONE: [phone] FAX: [phone] Start of care: 24-48 hours after hospital [...] MD [address] / [place] [address] All A agencies which cover the area of patient's residence have been reviewed, either verbally or in writing, and patient/family have chosen the home health care agency noted. Questions: Agency name and contact information: [facility] Patient location post discharge: Home What services are requested: Registered Nurse Physical Therapy Occupational Therapy Start date: Responsible MD post discharge contact info: PCP Discharge References/Attachments Atrial Fibrillation (Ivorian) Cardiac Rehabilitation (Ivorian) Heart Failure (Ivorian) Heart Failure: Limiting Sodium (Ivorian) Hemorrhagic Stroke: General Info (Ivorian) Smoking: Stopping (Ivorian) Stroke Rehabilitation: General Info (Ivorian) Pulmonary Embolism (Ivorian) Riki Stevens MD PGY-3, Internal Medicine Cardiology S2, #1039 Associated attestation - Paris Dodd MD - 12/09/2019 4:44 PM EDT Cardiology Attending Discharge Addendum I was the assigned attending crown ironer for this clinical encounter. For the purposes [...] complications include novel onset, paroxysmal atrial fibrillation [[id number]: 5] & L-sided diplopia with potential hemineglect [...] My contact information: Paris Matt MD MPH [address] [address] (office); Pager #[phone] Email: [email or web address] documented in this encounter Discharge Instructions Patient InstructionsFiRiki de jesus MD - 12/02/2019 9:56 AM EDT Images from the original note were not included. Why you were hospitalized: You had a heart attack. You received clot-busting medications at another hospital and then at [facility] you had a stent placed in a [...] FOR ONE MONTH AND THEN STOP. Your crown ironer may tell you to start this medication again after one year. Clopidogrel (Plavix) 75 mg daily - This medication will help prevent clots from forming in your blood, which will help protect the stent that was placed in your heart vessel. TAKE THIS FOR ONE YEAR ANDTHEN DISCUSS WITH YOUR SUPERVISORY IT SPECIALIST WHETHER TO STOP. Amiodarone 400mg twice [...] follow up: Your primary care provider and crown ironer will manage your blood thinner (apixaban). You do not need lab monitoring of this medication. Diet: Please consume a healthy diet low in cholesterol Follow up Appointments: 12/10/2019 at 3:10PM with PCP Angel Luis Lott Future Appointments Date Time Provider Department Center 12/23/2019 1:30 PM Alfreda Salas APRN [facility] [id number] [facility] 12/26/2019 9:40 AM Merlin Sanchez MD [facility] CARD 4A [facility] 12/30/2019 3:40 PM Gretchen Yoon MD [facility] CARD 4A [facility] Future Appointments and Orders Future Appointments and Orders Future Appointments Provider Department Dept Phone 12/23/2019 1:30 PM Alfreda Salas APRN Neurosurgery at [facility] Arrive at: Home [phone] Please do not come in for this visit. Your provider will call you at the number you provided. 12/26/2019 9:40 AM Merlin Sanchez MD Cardiology at [facility] Arrive at: Home [phone] Please do not come in for this visit. Your provider will call you at the number you provided. 12/30/2019 3:40 PM Gretchen Yoon MD Cardiology at [facility] Arrive at: Home [phone] Please do not come in for this visit. Your provider will call you at the number you provided. Future Orders Complete By Expires Referral to Cardiac Rehab [[id number] Custom] As directed Process Instructions: If no progress note charted, please enter Clinical details in comments. Scheduling Instructions: Questions: My question or request is: STEMI. Cardiac rehab at [facility] Referral to [facility] Treatment Center [REF43 Custom] As directed Process Instructions: If no progress note charted, please enter Clinical details in comments. Scheduling Instructions: Questions: My question or request is: patient with inferior stemi with history of statin allergy (rash) - please evaluate for psck9 inhibitor. Referral to Home Health - at DISCHARGE [[id number] CPT(R)] As directed Process Instructions: Scheduling Instructions: Comments: DOCUMENTATION FOR [facility] SERVICES PATIENT'S LOCATION: [address] [address] (home) Rooter Operator's Name: Self In discussion with the attending physician, it is certified that this patient is under his/her care and that MD, or an KNITTING DEMONSTRATOR, DITCH DIGGER, or PA who is working directly with him/her, had a zinj-gi-xnsc encounter that meets the physician doby-uj-anlp encounter requirements with this patient on 12/07/2019. [...] for managing ADLs. HOME HEALTH CARE AGENCY: [facility], PHONE: [phone] FAX: [phone] Start of care: 24-48 hours after hospital [...] MD [address] / [place] [address] All A agencies which cover the area of patient's residence have been reviewed, either verbally or in writing, and patient/family have chosen the home health care agency noted. Questions: Agency name and contact information: [facility] Patient location post discharge: Home What services are requested: Registered Nurse Physical Therapy Occupational Therapy Start date: Responsible MD post discharge contact info: PCP Your PCP: France Lam MD [phone] For questions regarding this document or issues relating to this hospitalization on the Cardiology Service, please contact your inpatient physician through the [facility] Cane Flume Chute Operator . Issues after hours and on weekends will be handled by the Geophysical Observer on-call. Patient Instructions: Neurology Your Diagnosis: Left [...] appointment in the neurology clinic at [facility]. See below for the appointment time. If you do not have an appointment, you will be called with a time/date for this appointment. ??? Primary Care Provider: Please follow up with your Primary Care Provider within one to 2 weeks ofdischarge. AttachmentsThe following attachments cannot be sent through Care Everywhere. Atrial Fibrillation (Ivorian)Cardiac Rehabilitation (Ivorian)Heart Failure (Ivorian)Heart Failure: Limiting Sodium (Ivorian)Hemorrhagic Stroke: General Info (Ivorian)Smoking: Stopping (Ivorian)Stroke Rehabilitation: General Info (Ivorian)Pulmonary Embolism (Ivorian)documented in this encounter Medications at Time of [...] personal vehicle. Discharge summary faxed to [facility]. Vikahs Rodriguez - 12/08/2019 10:59 AM EDT Nutrition [...] consulted in the interim. Vikash Rodriguez Pager: [phone] Paris Dodd MD - 12/08/2019 8:57 AM [...] complications include novel onset, paroxysmal atrial fibrillation [VLO4XX2VRRD: 5] & L-sided diplopia with potential hemineglect [...] discussion and counseling with the patient. Paris aMtt MD MPH Advanced Heart Disease & Cardiac [...] consulted in the interim. Vikash Rodriguez Pager: [phone] Paris Dodd MD - 12/07/2019 9:55 AM [...] complications include novel onset, paroxysmal atrial fibrillation [PBW3IS4FWJT: 5] & L-sided diplopia with potential hemineglect [...] complications include novel onset, paroxysmal atrial fibrillation [DTT5CR5COZV: 5] & L-sided diplopia with potential hemineglect [...] complications include novel onset, paroxysmal atrial fibrillation [OYB5ZV4ICUS: 5] & L-sided diplopia with potential hemineglect [...] today; additional complications include paroxysmal atrial fibrillation [CID3VE9HWQV: 4] c/b possible cardioembolic stroke, ICH from [...] length from neck/greatest diameter to back wall: MEXICAN 91, CAU 13: 19 mm CORTES 1, [...] a non-culprit artery. S/P DESx3 in the bcxhczry-sy-uvnhjl RCA. Aspiration thrombectomy performed, and integrellin bolus [...] complications include novel onset, paroxysmal atrial fibrillation [JSC0GI7VGBG: 5] & L-sided diplopia with potential hemineglect [...] R occipital cardioembolic stroke #Paroxysmal Afib with JJ7DWNAZ9Z score of 5 #New segmental bilateral PEs [...] Glasgow MD PGY1, Internal Medicine Cardiology S2, #4619 Associated attestation - Paris Dodd MD - 12/05/2019 2:59 PM EDT I was the assigned attending crown ironer for this clinical encounter. For the purposes [...] 12/04/2019 10:36 AM EDT Office of Care Management(OCM)/Huller Operator(CM)/Discharge Planning Service: Cardiology S2 team CM Bernie Alexander,RN,BSN,MA,ACM pgr [phone] Reviewed record and in Cardiology Rounds with MD team,CMs, broadcast operations director, LOADING MACHINE OPERATOR HELPER. Pt is anticipated ready for d/c later [...] AD to his PCP and to any [facility] appt for each to have on file. [...] complications include novel onset, paroxysmal atrial fibrillation [UAM0YU4XZAL: 4] & L-sided diplopia with potential hemineglect [...] ??? metoprolol tartrate 25 mg Oral Q6H BEKC ??? metroNIDAZOLE 500 mg Oral TID ??? [...] a non-culprit artery. S/P DESx3 in the mfcdzgym-wd-uheydn RCA. Aspiration thrombectomy performed, and integrellin bolus [...] complications include novel onset, paroxysmal atrial fibrillation [QRU8TK2HAVH: 5] & L-sided diplopia with potential hemineglect [...] R occipital cardioembolic stroke #Paroxysmal Afib with VZ8GNRJY1D score of 5 - No anticoagulation for [...] Glasgow MD PGY1, Internal Medicine Cardiology S2, #1857 I have seen the patient and reviewed [...] in my clinic. Gretchen Yoon MD Pager [phone] Derian Pascual RN - 12/03/2019 9:29 AM [...] Discharge: None Electronically signed: Derian Pascual RN, Huller Operator Pgr: [phone] 12/03/2019 9:29 AM Gretchen [...] complications include novel onset, paroxysmal atrial fibrillation [EXN7NR5XIGU: 4] & L-sided diplopia with potential hemineglect [...] a non-culprit artery. S/P DESx3 in the gbwlxlwi-wf-bfljyu RCA. Aspiration thrombectomy performed, and integrellin bolus [...] complications include novel onset, paroxysmal atrial fibrillation [DDJ6HF7WMQK: 5] & L-sided diplopia with potential hemineglect [...] would like to see Dr. Mejia in [facility] and follow up with his PCP. Patient voiced strong will to quit smoking now, understood that we have resources available for help. Plan [P]: --Neurologic-- # Concern for Left-Sided Diplopia, r/o Hemineglect # Concern for CVA, last-known well 11/29/19 - MRI showed possible cardioembolic stroke #Afib with IL3TORFR1A score of 5 - Stroke Team Consulted; [...] Anticoagulation/Arrhythmia # Novel Onset, Paroxsymal Atrial Fibrillation [[id number]: 5] - Hold off anticoagulation for at [...] w straight cath prn # Nutrition - [facility] Diet, 2g Na. -- Hematology/Oncology-- # Mild [...] Glasgow MD PGY1, Internal Medicine Cardiology S2, #5483 I have seen the patient and reviewed the resident's above history and I agree with the details as written. The assessment and plan were formulated in discussion with me and I agree with them as documented. Gretchen Yoon MD Pager [phone] Raul Hein RN - 12/03/2019 5:55 AM [...] Negative mcL Appearance UA Clear Clear Spec [place] UA 1.026 1.006 - 1.030 Color UA [...] PGY3 Neurology Resident 12/01/2019 Vascular Neurology Pager [phone] Neurology Attending Attestation I evaluated the patient [...] documented. Deepthi Roman MD Vascular Neurology Standard [facility] Swallow Screen: This screen is to be [...] diet as medical provider deems appropriate. Consider BEEF RIBBER consult for full evaluation and diet recommendations. [...] complications include novel onset, paroxysmal atrial fibrillation [WTC4GQ6MLVH: 4] & L-sided diplopia with potential hemineglect [...] a non-culprit artery. S/P DESx3 in the mlzbvadg-wp-jtuvze RCA. Aspiration thrombectomy performed, and integrellin bolus [...] complications include novel onset, paroxysmal atrial fibrillation [NKY3ZH6HAHA: 5] & L-sided diplopia with potential hemineglect [...] Anticoagulation/Arrhythmia # Novel Onset, Paroxsymal Atrial Fibrillation [VSS8ZP8QDQD: 5] - Hold off anticoagulation - pending [...] tamsulosin d/t low BP. # Nutrition - [facility] Diet -- Hematology/Oncology-- # Mild Thrombocytopenia, unclear [...] Glasgow MD PGY1, Internal Medicine Cardiology S2, #1553 I have seen the patient and reviewed [...] the ICU team. Gretchen Yoon MD Pager [phone] Natalia Claros APRN - 12/02/2019 8:38 AM [...] - We are signing off. Please page [phone] with any questions or concerns. For questions please call [facility] pager [phone] Natalia Claros APRN 12/02/2019 8:38 AM Clinical Documentation Improvement: Active Hospital Problems Diagnosis ??? Acute ST elevation myocardial infarction (STEMI) of inferior wall ??? Intracranial hemorrhage ??? Hyperlipidemia ??? Tobacco abuse ??? Claudication from peripheral vascular disease, left Resolved Hospital Problems No resolved problems to display. Tello Hsu, MEDICARE COORDINATOR - 12/02/2019 2:06 AM EDT 12/01/192009 Oxygen [...] Scan in afternoon. Upon arrival back in [facility] placed on low flow [place] at [...] complications include novel onset, paroxysmal atrial fibrillation [[id number]: 4] & L-sided diplopia with potential hemineglect for which CVA evaluationto be pursued. Active Problems/Subjective: - 11/28: admitted for inferior STEMI, RV failure requiring pressor - got lytics, aspirin and plavix load, heparin gtt, and eptifibatide. 3 MACARIO stents to RCA. Burnham cath - low wedge & CVP so [...] a non-culprit artery. S/P DESx3 in the loanpzmm-rp-vbnajr RCA. Aspiration thrombectomy performed, and integrellin bolus [...] complications include novel onset, paroxysmal atrial fibrillation [[id number]: 4] & L-sided diplopia with potential hemineglect [...] Anticoagulation/Arrhythmia # Novel Onset, Paroxsymal Atrial Fibrillation [[id number]: 4] - Obtain: TTE - Pending CVA [...] tamsulosin d/t low BP. # Nutrition - [facility] Diet -- Hematology/Oncology-- # Mild Thrombocytopenia, unclear [...] DNR/DNI - Dispo:CVCC, pending hemodynamic status. ?? Drarell Glasgow MD, PGY1 PGY3, Internal Medicine Cardiology S2, #[id number] I have seen the patient and reviewed [...] down the line. Gretchen Yoon MD Pager [phone] ?? Gretchen Yoon MD Pager [phone] Natalia Claros APRN - 12/01/2019 1:33 AM [...] per primary team For questions please call [facility] [place] [phone] Natalia Claros APRN 12/01/2019 7:42 AM Clinical Documentation Improvement: Active Hospital Problems Diagnosis ??? Acute ST elevation myocardial infarction (STEMI) of inferior wall ??? Intracranial hemorrhage ??? Hyperlipidemia ??? Tobacco abuse ??? Claudication from peripheral vascular disease, left Resolved Hospital Problems No resolved problems to display. Tello Hsu, MEDICARE COORDINATOR - 11/30/2019 8:44 PM EDT Respiratory Therapy [...] EDT Narrative:Visited in response to request for [employer] services. Pt was awake, alert, oriented and in bed. Assessment:Patient coping positively with stresses of illness/hospitalization at this time. Pt says that he is hoping to get better and pt is living with and has children and grandchildren. Pt haspurpose of life and has reason to get getter and to be with family. Outcome: Provided emotional and spiritual support and encouraging presence. [employer] services accepted.Conversation to build trusting relationship.Provided pastoral [...] complications include novel onset, paroxysmal atrial fibrillation [[id number]: 4] & L-sided diplopia with potential hemineglect for which CVA evaluationto be pursued. Active Problems/Subjective: - Overnight, CVP < 12 for which a total of 1 L IVF provided - Today AM, patient complains of subjectively reported, left-sided hemineglect with floaters and diplopia [see: exam]. - Otherwise, c/o neck pain 2/2 R IJ Burnham & L radial A line. Otherwise, denies [...] a non-culprit artery. S/P DESx3 in the xhnozxyi-tw-qiargi RCA. Aspiration thrombectomy performed, and integrellin bolus [...] complications include novel onset, paroxysmal atrial fibrillation [[id number]: 4] & L-sided diplopia with potential hemineglect [...] LCx; s/p lytics] # STEMI [LEYLA: 187, IDLLON: 7, Killip: 4] - Continue: ASA/Clopidogrel - [...] Anticoagulation/Arrhythmia # Novel Onset, Paroxsymal Atrial Fibrillation [[id number]: 4] - Obtain: TTE to confirm rhythm [...] tamsulosin d/t low BP. # Nutrition - [facility] Diet -- Hematology/Oncology-- # Mild Thrombocytopenia, unclear [...] MD, PGY3 PGY3, Internal Medicine Cardiology S2, #[id number] I have seen the patient and reviewed [...] down the line. Gretchen Yoon MD Pager [phone] Paola Capps RN - 11/30/2019 6:57 AM EDT PT still requiring 4 of levo, several attempts to titrate down (maps in 70;s) But maps would drop toless than 65. Pt very restless in bed Raising and lowering head denies pain . Integrillin stopped [id number] when bottle complete , urine tea colored [...] PCP: France Lam MD PCP phone #: [phone] Senior Vice President: None ID/Chief Complaint: Chest pain History of [...] and Compazine. He was transferred directly to [facility] via [facility] for further management. Patient had an emergent PCI with 3 MACARIO stents placed to his RCA, with mild disease of LCX (report pending) at [facility]. He was found to be persistently hypotensive requiring Levo up to 10mcg/min. He was transferred to [facility] after the cath procedure. Bedside RHC showed CI 2.12, PAWP 11, PAP 38/15 indicating hypovolemic state. He received 1L bolus of NS with improvement of his blood pressure to 124/61. History of PAD, HLD - had side reactions to statins - so taking niacin and red rye grain. Chronic active smoker with more than 65 pack years. Family history of [place] in father and two uncles. He's takingbaby [...] ??? Penicillins Pt doesn't remember reaction ??? Beogpoq-Ukz-Gnl Reductase Inhibitors Stiff neck, upset stomach, back pain Family History: Mother: Father: [place] 2 Uncles with MIs Social History: Tobacco: Current active smoker 1 ppd. 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 Vitals: Last value Range last [...] in the last 7068 hours. Invalid input(s): CMXKCPSMEKZ6S Heme: No results for input(s): LDH, HAPTOGLOBIN, [...] OSH prior to transfer and PCI at [facility]. Massive inferior STEMI with troponin level 20, currently in CVCC due to pressor requirement. BedsideRHC demonstrated evidence of elevated right sided heart failure, but his wedge was wnl. He received 1L bolus with improvement of his blood pressure and reduction of his pressor requirement. PLAN: Admit to Cardiology, S2 Team Pager # [phone] #Inferior STEMI, LYELA 149 - Resolving EKG changes with q [...] inferior STEMI s/p lytic therapy. Transferred to [facility] and underwent successful PCI of the RCA with MACARIO x3. Gretchen Yoon MD Pager [phone] documented in this encounter Procedure Notes Juventino [...] to the planned procedure. Hand Hygiene: The logistics specialist did perform hand hygiene prior to [...] a suspected line-associated infection. Location of Procedure: [facility] Risks and Benefits: The risks and [...] to the planned procedure. Hand Hygiene: The logistics specialist did perform hand hygiene prior to [...] side:right An Introducer (PSI Kit) was used. [place]. Insertion Side: right. Insertion Site: internal jugular. Catheter Details: Number of Lumens: 1 Catheter Type: heparin-coated The line was placed over a guidewire. Confirmation of Venous Placement: Venous placement was confirmed by transducing the pressure. Introducer Insertion Attempts: 1 Comments: Floating the Burnham-Mo Catheter Attempts: 1 Comments: Sterile Dressing: Biopatch [...] encouraged;verbalization of feelings encouraged Consult Note - Sraah Boyer RN - 12/07/2019 2:25 PM EDT [...] better pt back in SR. Please page [phone] for any more cares or concerns Plan [...] complications include novel onset, paroxysmal atrial fibrillation [[id number]: 5]& L-sided diplopia with potential hemineglect for [...] Total Evaluation Minutes, Occupational Therapy: 10 Pager: [phone] FRANCINE Nuñez Occupational Therapy Rehabilitation Department Plan [...] complications include novel onset, paroxysmal atrial fibrillation [[id number]: 5] & L-sided diplopia with potential hemineglect [...] hand rails). Baseline Mobility: Independent. Drives. 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 Time IN / OUT: 5607-3396 Total Evaluation Minutes, Physical Therapy: 15(gtx1) Barbara Baldwin, PT Pager: [phone] Physical Therapy Inpatient Rehabilitation Department Plan of [...] he receives all he needs through the [facility]. Consult refused. Romain Tran, MSN, RN-, [facility] Tobacco Web Retailer [facility] Pager #[phone] Plan of Care - Romain Oglesby OT [...] complications include novel onset, paroxysmal atrial fibrillation [[id number]: 5] & L-sided diplopia with potential hemineglect [...] and measurable assessment of functional outcome. Pager: [phone] ROMAIN OGLESBY OT 12/03/2019 Occupational Therapy Rehabilitation [...] in an outpatient cardiac rehabilitation program at [facility] was discussed. Patient agrees to a referral to this program. His has been a cardiac rehab patient at [facility] and he is familiar with the program. [...] complications include novel onset, paroxysmal atrial fibrillation [[id number]: 5] & L-sided diplopia with potential hemineglect [...] hand rails). Baseline Mobility: Independent. Drives. 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 Time IN / OUT: 4774-1794 Total Evaluation Minutes, Physical Therapy: 25(eval, gtx1) Barbara Baldwin, PT Pager: [phone] Physical Therapy Inpatient Rehabilitation Department Consult Note [...] Please contact JOHANNA NOBLES RN on pager [phone] or the wound care team at [phone] or pager [phone] skin and wound care concerns or questions. [...] Salinas would be surrogate decision maker per [place] surrogate decision making law. Any patient receiving carspousee at [facility] must abide by [place] law. The hierarchy for surrogate decisionmaking is: [...] (i) The agent with financial power of associate attorney or a conservator appointed in accordance [...] Insurance: N/A Prescription Coverage: Yes Preferred Pharmacy: [place], [place] Other: No Primary Care Provider: France Lam MD [phone] Patient/Caregiver Goals of Treatment: Return home Potential Needs for Transition of Care: Rehab/SNF: Based on discussions with the multi-disciplinary healthcare team, the patient would benefit from SNF level of care at discharge. ?? I have met with the patient to discuss discharge planning needs. I have provided the [facility], Officeof Care Management letter from the [employer] pertaining to rehab referrals. I have also provided a letter describing our affiliations within the [facility] and educated them about their [...] patient have requested referrals to: ?? [facility]. [facility] [address] [place] [address] ?? [address]. [address] , [place] [address] Note routed to Trust Evaluation Supervisor who will communicate referrals to facilities [...] referrals are placed. Patient requests referral to [facility]. PHONE: [phone] FAX: [phone] Referral routed to the Trust Evaluation Supervisor for matching with agency/vendor and to [...] Insured w/ Medicare. Gets medications filled at [facility] in [place], [place]. Son to transport at discharge Plan: Discharge dispo depending on patient's physical recovery; SNF vs home w/ VNA. A member of the Care Management team will continue to monitor progress, follow for continuity of care and assist with transition of care planning. Derian Pascual RN Pager: [phone] Plan of Care - Estefani Encarnacion RN [...] ??? Penicillins Pt doesn't remember reaction ??? Iflhqwz-Rgv-Mmz Reductase Inhibitors Stiff neck, upset stomach, back [...] noncontrast head CT and CT of the [place] at 1600 hrs. We will [...] vision concerning for stroke. Patient presented to [facility] in transfer for a STEMI after presenting [...] ??? Penicillins Pt doesn't remember reaction ??? Ccmsmre-Vtt-Pie Reductase Inhibitors Stiff neck, upset stomach, back [...] L Elbow flexion 5/5 R, 5/5 L Engineering And Operations Director LE: 5/5 R, 5/5 L Hip [...] PGY3 Neurology Resident 11/30/2019 Vascular Neurology Pager [phone] Standard [facility] Swallow Screen: This screen is to be [...] diet as medical provider deems appropriate. Consider BEEF RIBBER consult for full evaluation and diet recommendations. [...] Evan Mejia MD Department of Neurology [facility] Brief Op Note - Gretchen Yoon MD - 11/29/2019 8:38 PM EDT Brief Operative Note Patient Name: Angel Luis Salinas : [id number] MR#: [id number] Case Date: 11/29/2019 Surgeon: Surgeon(s) and Role: * Gretchen Yoon MD - Primary * Aidan Ward MD - Fellow Preoperative diagnosis: Inferior STEMI Postoperative diagnosis: Inferior STEMI Procedure(s) (LRB): CARDIAC CATHETERIZATION (N/A) Findings: Discrete 90% stenosis in the prox-to-mid RCA. Severe diffuse disease in the distal vessel. Discrete LCX stenosis in a non-culprit artery. S/P DESx3 in the bxleenas-js-zdomtn RCA. Aspiration thrombectomy performed, and integrellin bolus x2+ infusion. Nicardipine given during case due to intermittent sluggish flow. Complications: None documented in this encounter Plan of Treatment Upcoming Encounters Date Type Specialty Care Team Description 06/30/2022 Office Visit Endocrinology Alan Terrell MD [facility] ENDOCRINOLOGY [place], [place] [address] (Wo rk) Scheduled Referrals Name [...] are i n the results section. CT [place] [facility] STAT 11/30/2019 4:36 [...] athologist Signature Potassium 3.9 3.5 - 5.0 [facility] DOV mmol/L [facility] Comment: Please note: ??Patients with WBC [...] City/State/[place] [address] (ABNORMAL) Hemogram (12/08/2019 12:39 PM EDT) Analysis Performed At Patho logist Time Signature WBC 9.9 (H) 4.0 - 9.5 [place] DOV x10(3)/[facility] LABORATORY RBC 4.51 (L) 4.58 - [place] DOV 5.54 [facility] x10(6)/[facility] LABORATORY Hemoglobin 13.0 (L) 13.7 - [place] DOV 16.5 gm/dL [facility] Hematocrit 40.5 40.5 - [facility] 48.5 % [facility] MCV 89.8 82.9 - [place] DOV 93.1 [facility] LABORATORY MCH 28.8 27.5 - [place] D[place] 32.1 pg [facility] MCHC 32.1 32.0 - [place] DOV 35.7 gm/dL [facility] Platelets 214 145 - 357 [place] DOV x10(3)/[facility] LABORATORY RDWSD 49.2 (H) 36.0 - [place] DOV 45.0 [facility] LABORATORY RDWCV 15.1 (H) 11.4 - [facility] 13.8 % [facility] MPV 12.1 7.6 - 12.9 [place] DOV [facility] LABORATORY nRBC % Auto 0.0 % [facility] nRBC Abs Auto 0.000 0.000 - [place] DOV 0.000 [facility] x10(3)/[facility] LABORATORY Specimen Anatomical Collection Method Collection Time Receive d Time (Source) Location / / Volume Laterality Blood specimen 12/08/2019 12:39 0 (specimen) PM EDT 12:47 PM EDT Resulting Agency Comment Spec In Lab Gretchen Yoon MD HEMATOLOGY ORDERABLES Performing Organization Address City/State/ZIP Code Phon e Number [address] Hepatic Function Panel (12/08/2019 6:28 AM EDT) athologist Signature Total Protein 6.6 6.1 - 8.[address] [facility] [address] gm/dL [facility] Albumin 3.2 3.2 - 5.2 [facility]dL [facility] AST 18 0 - [address] [facility] unit/L [facility] ALT 13 0 - [address] [facility]/L [facility] Alk Phos 64 40 - [address] [facility]/L [facility] Total 0.4 0.2 - 1.3 [facility] Bilirubin mg/dL [facility] Bili, Direct 0.1 0.0 - 0.3 [facility] mg/dL [facility] Specimen Anatomical Collection Method Collection Time Receive d Time (Source) Location / / Volume Laterality Blood specimen Venous Draw / 12/08/2019 6:28 AM 2019 6:36 (specimen) Unknown EDT AM EDT Resulting Agency Comment Spec In Lab Riki Stevens MD CHEMISTRY ORDERABLES Performing Organization Address City/State/ZIP Code Phon e Number [address] (ABNORMAL) TSH (12/08/2019 6:28 AM EDT) P athologist Signature TSH 5.27 (H) 0.27 - 4.20 [facility] DOV mcIU/mL [facility] Specimen Anatomical Collection Method Collection Time Receive d Time (Source) Location / / Volume Laterality Blood specimen Venous Draw / 12/08/2019 6:28 AM 2019 6:36 (specimen) Unknown EDT AM EDT Resulting Agency Comment Spec In Lab Darrell Glasgow MD CHEMISTRY ORDERABLES Performing Organization Address City/State/ZIP Code Phon e Number [address] Potassium (12/08/2019 6:28 AM EDT) P athologist Signature Potassium 4.2 3.5 - 5.0 [facility] mmol/L [facility] Comment: Please note: ??Patients with WBC [...] Lagos MD CHEMISTRY ORDERABLES Performing Organization Address City/[facility]/ZIP [place] [address] (ABNORMAL) Differential, Automated (12/08/2019 12:43 AM EDT) Patholo gist Method Time Signature Neutrophils % 60.7 % [facility]ORY Neutr Abs (ANC) 6.81 (H) 1.70 - [facility] 6.10 [facility] x10(3)/[facility] LABORATORY Lymphocytes % 23.4 % [facility]ORY Lymphocytes Abs 2.6 0.9 - 3.2 [facility] x10(3)/[facility] LABORATORY Monocytes % 10.0 % [facility]ORY Monocyte Abs 1.1 (H) 0.3 - 0.9 [facility] x10(3)/[facility] LABORATORY Eosinophils % 3.7 % [facility]ORY Eosinophils Abs 0.4 0.0 - 0.4 [facility] x10(3)/[facility] LABORATORY Basophils % 1.2 % [facility]ORY Basophils Abs 0.1 0.0 - 0.1 [facility] DOV x10(3)/[facility] LABORATORY Immature Gran % 1.00 % [facility] Comment: Immature granulocytes(IG's)percentage an d [...] City/State/[place] [address] (ABNORMAL) Hemogram (12/08/2019 12:43 AM EDT) Analysis Performed At Patho logist Time Signature WBC 11.2 (H) 4.0 - 9.5 [facility] x10(3)/[facility] LABORATORY RBC 4.46 (L) 4.58 - [facility] DOV 5.54 [facility] x10(6)/[facility] LABORATORY Hemoglobin 13.1 (L) 13.7 - [facility] 16.5 gm/dL [facility] Hematocrit 40.5 40.5 - [place] DOV 48.5 % [facility] MCV 90.8 82.9 - [facility] 93.1 [facility] LABORATORY MCH 29.4 27.5 - [place] DOV 32.1 pg [facility] MCHC 32.3 32.0 - [facility] DOV 35.7 gm/dL [facility] Platelets 215 145 - 357 [facility] x10(3)/[facility] RDWSD 49.8 (H) 36.0 - [place] DOV 45.0 [facility] LABORATORY RDWCV 15.2 (H) 11.4 - [place] MONAE 13.8 % [facility] MPV 12.3 7.6 - 12.9 [place] MONAE fL [facility] nRBC % Auto 0.0 % [facility]OR[facility]ORY nRBC Abs Auto 0.000 0.000 - [place] MONAE 0.000 [facility] x10(3)/[facility] LABORATORY Specimen Anatomical Collection Method Collection Time Receive d Time (Source) Location / / Volume Laterality Blood specimen 12/08/2019 12:43 0 (specimen) AM EDT 12:52 AM EDT Resulting Agency Comment Spec In Lab Riki Stevens MD HEMATOLOGY ORDERABLES Performing Organization Address City/State/ZIP Code Phon e Number [address] Magnesium (12/08/2019 12:43 AM EDT) P athologist Signature Magnesium 1.01 0.69 - 1.07 [facility] mmol/L [facility] Specimen Anatomical Collection Method Collection Time Receive d Time (Source) Location / / Volume Laterality Blood specimen 12/08/2019 12:43 0 (specimen) AM EDT 12:52 AM EDT Resulting Agency Comment Spec In Lab Gretchen Yoon MD CHEMISTRY ORDERABLES Performing Organization Address City/State/ZIP Code Phon e Number [address] (ABNORMAL) BMP w/fasting Glucose (12/08/2019 12:43 AM EDT) P athologist Signature Glucose 106 (H) 65 - 99 [facility] Fasting mg/dL [facility] Comment: ?Fasting* Glucose Interpretive C riteria [...] of Diabetes Mellitus, Position Statement from the [employer]. ??Diabete s Care, Volume 33, Supplement 1, Jul 2009 BUN 14 10 - 20 mg/dL [facility] Creatinine 1.16 0.80 - 1.50 mg/dL [facility] LAB[facility] Sodium 134 (L) 135 - [...] estions. Chloride 99 98 - 107 mmol/L [facility] CO2 19 (L) 22 - 31 mmol/L [facility] Anion Gap 16 (H) 5 - 15 mmol/L [facility] Calcium 8.9 8.5 - 10.5 mg/dL [facility] LAB[facility] Estimated GFR 62 >=60 mL/min/1.73 m?? [facility] Comment: The eGFR was calculated using the CKD-EP I equation. As with all creatinine based estimates of kidney function, eGFR values calculated with the CKD-EPI equation are not accurate in patients wi th acute kidney failure, extremes of body mass or the acutely ill. [email or web address]Dnkf eGFR 72 >=60 mL/min/1.73 m?? [facility] Comment: The eGFR was calculated using the CKD-EP I equation. As with all creatinine based estimates of kidney function, eGFR values calculated with the CKD-EPI equation are not accurate in patients wi th acute kidney failure, extremes of body mass or the acutely ill. [email or web address] Specimen Anatomical Collection Method Collection Time Receive d Time (Source) Location / / Volume Laterality Blood specimen 12/08/2019 12:43 0 (specimen) AM EDT 12:52 AM EDT Resulting Agency Comment Spec In Lab Gretchen Yoon MD CHEMISTRY ORDERABLES Performing Organization Address [facility] [place] [address] Heparin (unfractionated) Level (12/08/2019 12:43 AM EDT) athologist Signature Heparin UFH 0.60 IU/mL [facility] LABORATORY Comment: Guidelines for therapeutic unfractionate d [...] Lagos MD HEMATOLOGY ORDERABLES Performing Organization Address [facility]/[place] [address] [facility] [address] Potassium (12/07/2019 8:39 PM EDT) athologist Signature Potassium 4.1 3.5 - 5.0 [facility] mmol/L [facility] Comment: Please note: ??Patients with WBC [...] Lagos MD CHEMISTRY ORDERABLES Performing Organization Address City/[facility]/ZIP [place] [address] Potassium (12/07/2019 4:02 PM EDT) P athologist Signature Potassium 4.0 3.5 - 5.0 [facility] mmol/L [facility] Comment: Please note: ??Patients with WBC [...] Yoon MD CHEMISTRY ORDERABLES Performing Organization Address City/[facility] [place] [address] (ABNORMAL) Hemogram (12/07/2019 4:02 PM EDT) Analysis Performed At Patho logist Time Signature WBC 17.4 (H) 4.0 - 9.5 [place] DOV x10(3)/[facility] LABORATORY RBC 4.58 4.58 - [place] DOV 5.54 [facility] x10(6)/[facility] LABORATORY Hemoglobin 13.5 (L) 13.7 - [place] DOV 16.5 gm/dL [facility] Hematocrit 40.8 40.5 - [place] DOV 48.5 % [facility] MCV 89.1 82.9 - [place] DOV 93.1 fL [facility] [facility] MCH 29.5 27.5 - MELINA MONAE 32.1 pg [facility] MCHC 33.1 32.0 - MELINA MONAE 35.7 gm/dL [facility] Platelets 238 145 - 357 [facility] x10(3)/[facility] LABORATORY RDWSD 48.8 (H) 36.0 - MELINA MONAE 45.0 [facility] LABORATORY RDWCV 15.0 (H) 11.4 - [facility] DOV 13.8 % [facility] MPV 12.2 7.6 - 12.9 MELINA MONAE [facility] LABORATORY nRBC % Auto 0.0 % [facility] LABORATORY nRBC Abs Auto 0.000 0.000 - MELINA MONAE 0.000 [facility] x10(3)/[facility] LABORATORY Specimen Anatomical Collection Method Collection Time Receive d Time (Source) Location / / Volume Laterality Blood specimen 12/07/2019 4:02 PM 020 4:08 (specimen) EDT PM EDT Resulting Agency Comment Spec In Lab Gretchen Yoon MD HEMATOLOGY ORDERABLES Performing Organization Address City/State/[place] [address] EKG 12 Lead (12/07/2019 [...] (Bezet) Calculated P -12 degrees MUSE SYSTEM [place] Calculated R 10 degrees MUSE SYSTEM [place] Calculated T -138 degrees MUSE SYSTEM [place] INTERPRETATION Supraventricular tachycardia MUSE SYSTEM Low [...] athologist Signature Potassium 4.2 3.5 - 5.0 [facility] mmol/L [facility]OR[facility]ORY Comment: Please note: ??Patients with WBC [...] City/State/[place] [address] Heparin (unfractionated) Level (12/07/2019 11:43 AM EDT) athologist Signature Heparin UFH 0.59 IU/mL [facility] LABORATORY Comment: Guidelines for therapeutic unfractionate d [...] Lagos MD HEMATOLOGY ORDERABLES Performing Organization Address City/[facility]/[place] [address] Heparin (unfractionated) Level (12/07/2019 5:20 AM EDT) athologist Signature Heparin UFH 0.53 IU/mL [facility] LABORATORY Comment: Guidelines for therapeutic unfractionate d [...] Lagos MD HEMATOLOGY ORDERABLES Performing Organization Address City/[facility]/[place] [address] [facility] [address] (ABNORMAL) Differential, Automated (12/07/2019 5:20 AM EDT) Patholo gist Method Time Signature Neutrophils % 62.4 % [facility] LABORATORY Neutr Abs (ANC) 5.46 1.70 - [facility] 6.10 [facility] x10(3)/[facility] LABORATORY Lymphocytes % 20.3 % [facility] LABORATORY Lymphocytes Abs 1.8 0.9 - 3.2 [facility] x10(3)/[facility] LABORATORY Monocytes % 11.0 % [facility] LABORATORY Monocyte Abs 1.0 (H) 0.3 - 0.9 [facility] x10(3)/[facility] LABORATORY Eosinophils % 4.5 % [facility] LABORATORY Eosinophils Abs 0.4 0.0 - 0.4 [facility] x10(3)/[facility] LABORATORY Basophils % 0.9 % [facility] LABORATORY Basophils Abs 0.1 0.0 - 0.1 [facility] x10(3)/[facility] LABORATORY Immature Gran % 0.90 % [facility] LABORATORY Comment: Immature granulocytes(IG's)percentage an d [...] City/State/[place] [address] (ABNORMAL) Hemogram (12/07/2019 5:20 AM EDT) Analysis Performed At Patho logist Time Signature WBC 8.7 4.0 - 9.5 [facility] x10(3)/[facility] LABORATORY RBC 4.20 (L) 4.58 - [facility] 5.54 [facility] x10(6)/[facility] LABORATORY Hemoglobin 12.3 (L) 13.7 - [facility] 16.5 gm/dL [facility] LABOR[facility]ORY Hematocrit 37.4 (L) 40.5 - MELINA MONAE 48.5 % [facility] MCV 89.0 82.9 - MELINA MONAE 93.1 [facility] LABORATORY MCH 29.3 27.5 - MELINA VILLANUEVACK 32.1 pg [facility] LABORATORY MCHC 32.9 32.0 - MELINA MONAE 35.7 gm/dL [facility] LABORATORY Platelets 181 145 - 357 MELINA [place] x10(3)/[facility] LABORATORY RDWSD 47.7 (H) 36.0 - MELINA MONAE 45.0 [facility] LABORATORY RDWCV 14.8 (H) 11.4 - [facility] DOV 13.8 % [facility] MPV 12.3 7.6 - 12.9 [facility] LABORATORY nRBC % Auto 0.0 % [facility] LABORATORY nRBC Abs Auto 0.000 0.000 - MELINA MARSHDOV 0.000 [facility] x10(3)/[facility] LABORATORY Specimen Anatomical Collection Method Collection Time Receive d Time (Source) Location / / Volume Laterality Blood specimen 12/07/2019 5:20 AM 020 5:37 (specimen) EDT AM EDT Resulting Agency Comment Spec In Lab Riki Stevens MD HEMATOLOGY ORDERABLES Performing Organization Address City/[facility]/ZIP [place] [address] Magnesium (12/07/2019 5:20 AM EDT) athologist Signature Magnesium 0.89 0.69 - 1.[address] [facility] mmol/L [facility] Specimen Anatomical Collection Method Collection Time Receive d Time (Source) Location / / Volume Laterality Blood specimen 12/07/2019 5:20 AM 020 5:37 (specimen) EDT AM EDT Resulting Agency Comment Spec In Lab Gretchen Yoon MD CHEMISTRY ORDERABLES Performing Organization Address City/[facility] [place] [address] (ABNORMAL) BMP w/fasting Glucose (12/07/2019 5:20 AM EDT) athologist Signature Glucose 100 (H) 65 - 99 [facility] Fasting mg/dL [facility] LABORATORY Comment: ?Fasting* Glucose Interpretive C riteria [...] of Diabetes Mellitus, Position Statement from the [employer]. ??Diabete s Care, Volume 33, Supplement 1, Jul 2009 BUN 14 10 - 20 mg/dL [facility] LABORATORY Creatinine 0.83 0.80 - 1.50 mg/dL [facility] LABORATORY Sodium 135 135 - 145 [...] estions. Chloride 101 98 - 107 mmol/L [facility] LABORATORY CO2 20 (L) 22 - 31 mmol/L [facility] LABORATORY Anion Gap 14 5 - 15 mmol/L [facility] LABORATORY Calcium 8.8 8.5 - 10.5 mg/dL [facility] LABOR[facility] Estimated GFR 87 >=60 mL/min/1.73 m?? [facility] LABORATORY Comment: The eGFR was calculated using the CKD-EP I equation. As with all creatinine based estimates of kidney function, eGFR values calculated with the CKD-EPI equation are not accurate in patients wi th acute kidney failure, extremes of body mass or the acutely ill. [email or web address] STROUDnkf eGFR 101 >=60 mL/min/1.73 m?? [facility] LABORATORY Comment: The eGFR was calculated using the CKD-EP I equation. As with all creatinine based estimates of kidney function, eGFR values calculated with the CKD-EPI equation are not accurate in patients wi th acute kidney failure, extremes of body mass or the acutely ill. [email or web address] STROUDnkf Specimen Anatomical Collection Method Collection Time Receive d Time (Source) Location / / Volume Laterality Blood specimen 12/07/2019 5:20 AM 020 5:37 (specimen) EDT AM EDT Resulting Agency Comment Spec In Lab Gretchen Yoon MD CHEMISTRY ORDERABLES Performing Organization Address City/State/[place] [address] Heparin (unfractionated) Level (12/06/2019 10:14 PM EDT) athologist Signature Heparin UFH 0.29 IU/mL [facility] LABORATORY Comment: Guidelines for therapeutic unfractionate d [...] City/State/[place] [address] Head wo Contrast [...] For questions regarding this report, please contact [facility] number below. ? Electronically signed by: Merari Collins [facility] ([phone]), at 12/06/2019 10:06 PM Narrative 12/06/2019 10:06 [...] number below. Electronically signed by: Merari Collins [facility] ([phone]), at 12/06/2019 10:06 PM Paris Lagos MD IMG CT ORDERABLES (ABNORMAL) Hemogram (12/06/2019 4:20 PM EDT) Analysis Performed At Patho logist Time Signature WBC 10.4 (H) 4.0 - 9.5 [facility] DOV x10(3)/[facility] LABORATORY RBC 4.32 (L) 4.58 - MELINA DOV 5.54 [facility] x10(6)/[facility] LABORATORY Hemoglobin 12.5 (L) 13.7 - [facility] DOV 16.5 gm/dL [facility] LABORATORY Hematocrit 38.4 (L) 40.5 - [facility] DOV 48.5 % [facility] LABORATORY MCV 88.9 82.9 - [facility] DOV 93.1 [facility] LABORATORY MCH 28.9 27.5 - MELINA DOV 32.1 pg [facility] LABORATORY MCHC 32.6 32.0 - MELINA DOV 35.7 gm/dL [facility] LABORATORY Platelets 194 145 - 357 [facility] x10(3)/[facility] LABORATORY RDWSD 46.9 (H) 36.0 - [facility] DOV 45.0 [facility] LABORATORY RDWCV 14.6 (H) 11.4 - [facility] DOV 13.8 % [facility] LABORATORY MPV 11.9 7.6 - 12.9 [facility] nRBC % Auto 0.0 % [facility] LABORATORY nRBC Abs Auto 0.000 0.000 - MELINA DOV 0.000 [facility] x10(3)/[facility] LABORATORY Specimen Anatomical Collection Method Collection Time Receive d Time (Source) Location / / Volume Laterality Blood specimen 12/06/2019 4:20 PM 020 4:31 (specimen) EDT PM EDT Resulting Agency Comment Spec In Lab Gretchen Yoon MD HEMATOLOGY ORDERABLES Performing Organization Address City/State/ZIP Code Phon e Number [place] [phone] HOSP[address] LAB[address]ORY Drive Heparin (unfractionated) Level (12/06/2019 4:20 PM EDT) athologist Signature Heparin UFH 0.30 IU/mL [facility] LABORATORY Comment: Guidelines for therapeutic unfractionate d [...] Lagos MD HEMATOLOGY ORDERABLES Performing Organization Address [facility] [place] [address] [facility] [address] Heparin (unfractionated) Level (12/06/2019 10:02 AM EDT) athologist Signature Heparin UFH <0.04 IU/mL [facility] LABORATORY Comment: Guidelines for therapeutic unfractionate d [...] Lagos MD HEMATOLOGY ORDERABLES Performing Organization Address City/[facility]/ZIP [place] [address] Magnesium (12/06/2019 3:36 AM EDT) P athologist Signature Magnesium 0.86 0.69 - 1.07 [facility] mmol/L [facility] Specimen Anatomical Collection Method Collection Time Receive d Time (Source) Location / / Volume Laterality Blood specimen 12/06/2019 3:36 AM 020 3:45 (specimen) EDT AM EDT Resulting Agency Comment Spec In Lab Gretchen Yoon MD CHEMISTRY ORDERABLES Performing Organization Address City/State/ZIP [place] [address] (ABNORMAL) BMP w/fasting Glucose (12/06/2019 3:36 AM EDT) P athologist Signature Glucose 103 (H) 65 - 99 [facility] Fasting mg/dL [facility] LAB[facility] Comment: ?Fasting* Glucose Interpretive C riteria [...] of Diabetes Mellitus, Position Statement from the [employer]. ??Diabete s Care, Volume 33, Supplement 1, Jul 2009 BUN 20 10 - 20 mg/dL [facility] LABORATORY Creatinine 0.88 0.80 - 1.50 mg/dL [facility] LABORATORY Sodium 136 135 - 145 [...] estions. Chloride 103 98 - 107 mmol/L [facility] LABORATORY CO2 19 (L) 22 - 31 mmol/L [facility] LABORATORY Anion Gap 14 5 - 15 mmol/L [facility] LABOR[facility]ORY Calcium 8.7 8.5 - 10.5 mg/dL [facility] Estimated GFR 85 >=60 mL/min/1.73 m?? [facility] LAB[facility]ORY Comment: The eGFR was calculated using the CKD-EP I equation. As with all creatinine based estimates of kidney function, eGFR values calculated with the CKD-EPI equation are not accurate in patients wi th acute kidney failure, extremes of body mass or the acutely ill. [email or web address] eGFR 99 >=60 mL/min/1.73 m?? [facility] LABORATORY Comment: The eGFR was calculated using the CKD-EP I equation. As with all creatinine based estimates of kidney function, eGFR values calculated with the CKD-EPI equation are not accurate in patients wi th acute kidney failure, extremes of body mass or the acutely ill. [email or web address] Specimen Anatomical Collection Method Collection Time Receive d Time (Source) Location / / Volume Laterality Blood specimen 12/06/2019 3:36 AM 020 3:45 (specimen) EDT AM EDT Resulting Agency Comment Spec In Lab Gretchen Yoon MD CHEMISTRY ORDERABLES Performing Organization Address City/State/[place] [address] (ABNORMAL) Hemogram (12/06/2019 3:36 AM EDT) Analysis Performed At Patho logist Time Signature WBC 9.2 4.0 - 9.[address] x10(3)/[facility] LABORATORY RBC 3.99 (L) 4.58 - [facility] DOV 5.54 [facility] x10(6)/[facility] LABORATORY Hemoglobin 11.9 (L) 13.7 - [facility] DOV 16.5 gm/dL [facility] LABORATORY Hematocrit 35.5 (L) 40.5 - [facility] 48.5 % [facility] MCV 89.0 82.9 - [facility] 93.1 [facility] LABORATORY MCH 29.8 27.5 - MELINA DOV 32.1 pg [facility] LABORATORY MCHC 33.5 32.0 - [facility] 35.7 gm/dL [facility] Platelets 164 145 - 357 [facility] x10(3)/[facility] LABORATORY RDWSD 47.6 (H) 36.0 - MELINA DOV 45.0 [facility] LABORATORY RDWCV 14.7 (H) 11.4 - M[place]INA DOV 13.8 % [facility] LABORATORY MPV 11.9 7.6 - 12.9 [facility] LABORATORY nRBC % Auto 0.0 % [facility] LABORATORY nRBC Abs Auto 0.000 0.000 - M[place]INA DOV 0.000 [facility] x10(3)/[facility] LABORATORY Specimen Anatomical Collection Method Collection Time Receive d Time (Source) Location / / Volume Laterality Blood specimen 12/06/2019 3:36 AM 020 3:45 (specimen) EDT AM EDT Resulting Agency Comment Spec In Lab Gretchen Yoon MD HEMATOLOGY ORDERABLES Performing Organization Address City/State/[place] [address] (ABNORMAL) Differential, Automated (12/05/2019 10:52 PM EDT) [facility] Method Time Signature Neutrophils % 61.9 % [facility] LABORATORY Neutr Abs (ANC) 6.02 1.70 - [facility] 6.10 [facility] x10(3)/[facility] LABORATORY Lymphocytes % 22.4 % [facility] LABORATORY Lymphocytes Abs 2.2 0.9 - 3.2 [facility] x10(3)/[facility] LABORATORY Monocytes % 10.4 % [facility] LABORATORY Monocyte Abs 1.0 (H) 0.3 - 0.9 [facility] x10(3)/[facility] LABORATORY Eosinophils % 4.1 % [facility] LABORATORY Eosinophils Abs 0.4 0.0 - 0.4 [facility] x10(3)/[facility] LABORATORY Basophils % 0.7 % [facility] LABORATORY Basophils Abs 0.1 0.0 - 0.1 [facility] x10(3)/[facility] LABORATORY Immature Gran % 0.50 % [facility] LABORATORY Comment: Immature granulocytes(IG's)percentage an d [...] City/State/[place] [address] (ABNORMAL) Hemogram (12/05/2019 10:52 PM EDT) Analysis Performed At Patho logist Time Signature WBC 9.7 (H) 4.0 - 9.5 [facility] DOV x10(3)/[facility] LABORATORY RBC 4.07 (L) 4.58 - MELINA DOV 5.54 [facility] x10(6)/[facility] LABORATORY Hemoglobin 11.9 (L) 13.7 - [facility] DOV 16.5 gm/dL [facility] LABORATORY Hematocrit 36.4 (L) 40.5 - [facility] 48.5 % [facility] MCV 89.4 82.9 - [facility] 93.1 [facility] LABORATORY MCH 29.2 27.5 - [facility] DOV 32.1 pg [facility] LABORATORY MCHC 32.7 32.0 - [facility] DOV 35.7 gm/dL [facility] LABORATORY Platelets 167 145 - 357 [facility] x10(3)/[facility] LABORATORY RDWSD 47.7 (H) 36.0 - [facility] DOV 45.0 [facility] LABORATORY RDWCV 14.6 (H) 11.4 - [facility] DOV 13.8 % [facility] LABORATORY MPV 12.1 7.6 - 12.9 [facility] DOV [facility] LABORATORY nRBC % Auto 0.0 % [facility] LABORATORY nRBC Abs Auto 0.000 0.000 - [facility] DOV 0.000 [facility] x10(3)/[facility] LABORATORY Specimen Anatomical Collection Method Collection Time Receive d Time (Source) Location / / Volume Laterality Blood specimen 12/05/2019 10:52 0 (specimen) PM EDT 10:59 PM EDT Resulting Agency Comment Spec In Lab Mandi Barrera MD HEMATOLOGY ORDERABLES Performing Organization Address City/State/ZIP Code Phon e Number [place] [phone] HOSPITAL LAB[address]ATORY Drive Heparin (unfractionated) Level (12/05/2019 10:52 PM EDT) P athologist Signature Heparin UFH <0.04 IU/mL [facility] LABORATORY Comment: Guidelines for therapeutic unfractionate d [...] Organization Address City/State/ZIP Code Phon e Number [place] [phone] HOSPITAL LABORATORY Drive MRI Brain wwo Contrast [...] ? Electronically signed by: ALBA Jenkins [facility] ([phone]), at 12/05/2019 10:02 PM Narrative 12/05/2019 10:02 [...] intraparenchymal hemorrhage just inferior to the left betazida bus pallidus as seen on the recent [...] number below. Electronically signed by: Merari Collins [facility] ([phone]), at 12/05/2019 10:02 PM Paris Lagos MD IMG MRI ORDERABLES (ABNORMAL) Hemogram (12/05/2019 1:00 PM EDT) Analysis Performed At Patho logist Time Signature WBC 8.7 4.0 - 9.5 [facility] x10(3[facility] LABORATORY RBC 4.17 (L) 4.58 - M[place]INA DOV 5.54 [facility] x10(6)/[facility] LABORATORY Hemoglobin 12.4 (L) 13.7 - [place] DOV 16.5 gm/dL [facility] LABORATORY Hematocrit 37.0 (L) 40.5 - [place] DOV 48.5 % [facility] LABORATORY MCV 88.7 82.9 - [place] DOV 93.1 [facility] LABORATORY MCH 29.7 27.5 - [place] DOV 32.1 pg [facility] LABORATORY MCHC 33.5 32.0 - [place] DOV 35.7 gm/dL [facility] LABORATORY Platelets 173 145 - [address] [address] [facility] x10(3)/[facility] LABORATORY RDWSD 47.3 (H) 36.0 - [facility] DOV 45.0 [facility] LABORATORY RDWCV 14.6 (H) 11.4 - M[place]INA DVO 13.8 % [facility] LABORATORY MPV 12.1 7.6 - 12.9 [facility] DOV [facility] LABORATORY nRBC % Auto 0.0 % [facility] LABORATORY nRBC Abs Auto 0.000 0.000 - [place] DOV 0.000 [facility] x10(3)/[facility] LABORATORY Specimen Anatomical Collection Method Collection Time Receive d Time (Source) Location / / Volume Laterality Blood specimen 12/05/2019 1:00 PM 020 1:13 (specimen) EDT PM EDT Resulting Agency Comment Spec In Lab Gretchen Yoon MD HEMATOLOGY ORDERABLES Performing Organization Address City/State/ZIP Code Phon e Number [place] [id number] HOSPITAL LABORATORY Drive EKG 12 Lead (12/05/2019 10:52 AM EDT) Component Value Ref Range Test Analysis Performed Pathologis t Method Time At Signature Ventricular rate 72 BPM MUSE SYSTEM Atrial Rate 72 BPM MUSE SYSTEM P-R Interval 138 ms MUSE SYSTEM QRS Duration 96 ms MUSE SYSTEM Q-T Interval 396 ms MUSE SYSTEM QTC Calculated 433 ms MUSE SYSTEM (Bezet) Calculated P [place] 65 degrees MUSE SYSTEM Calculated R [place] 13 degrees MUSE SYSTEM Calculated T [place] 0 degrees MUSE SYSTEM INTERPRETATION Sinus rhythm Occasional Premature ventricular complexe s MUSE SYSTEM Possible Inferior infarct (cited on or before 29-NOV-2019) Abnormal ECG When compared with ECG of 04-DEC-2019 10:43, Sinus rhythm has replaced Atrial fibrillation Vent. rate has decreased BY ??86 BPM Confirmed by MD Ceja Daniel ([id number]) on 12/05/2019 3:55:22 PM Specimen Anatomical Collection [...] Department: Vascular Surgery Lab VASCUBASE Report Patient: [id number] (ANGEL LUIS SALINAS) CPT: 12496 ICD10: I26.99 Referring Physician: GRETCHEN YOON ?? [...] athologist Signature Magnesium 0.87 0.69 - 1.07 [facility] mmol/L [facility] LABORATORY Specimen Anatomical Collection Method Collection Time Receive d Time (Source) Location / / Volume Laterality Blood specimen 12/05/2019 4:18 AM 020 4:31 (specimen) EDT AM EDT Resulting Agency Comment Spec In Lab Gretchen Yoon MD CHEMISTRY ORDERABLES Performing Organization Address City/State/[place] [address] (ABNORMAL) BMP w/fasting Glucose (12/05/2019 4:18 AM EDT) P athologist Signature Glucose 104 (H) 65 - 99 [facility] Fasting mg/dL [facility] LABORATORY Comment: ?Fasting* Glucose Interpretive C riteria [...] of Diabetes Mellitus, Position Statement from the [employer]. ??Diabete s Care, Volume 33, Supplement 1, Jul 2009 BUN 21 (H) 10 - 20 mg/dL [facility] LABORATORY Creatinine 1.02 0.80 - 1.50 mg/dL [facility] LABOR[facility] Sodium 136 135 - 145 [...] estions. Chloride 103 98 - 107 mmol/L [facility] LABOR[facility] CO2 21 (L) 22 - 31 mmol/L [facility]OR[facility]ORY Anion Gap 12 5 - 15 mmol/L [facility] Calcium 8.8 8.5 - 10.5 mg/dL [facility] Estimated GFR 73 >=60 mL/min/1.73 m?? [facility] LAB[facility]ORY Comment: The eGFR was calculated using the CKD-EP I equation. As with all creatinine based estimates of kidney function, eGFR values calculated with the CKD-EPI equation are not accurate in patients wi th acute kidney failure, extremes of body mass or the acutely ill. [email or web address] STROUDnkCyanto eGFR 84 >=60 mL/min/1.73 m?? [facility] LAB[facility]ORY Comment: The eGFR was calculated using the CKD-EP I equation. As with all creatinine based estimates of kidney function, eGFR values calculated with the CKD-EPI equation are not accurate in patients wi th acute kidney failure, extremes of body mass or the acutely ill. [email or web address] STROUDnkf Specimen Anatomical Collection Method Collection Time Receive d Time (Source) Location / / Volume Laterality Blood specimen 12/05/2019 4:18 AM 020 4:31 (specimen) EDT AM EDT Resulting Agency Comment Spec In Lab Gretchen Yoon MD CHEMISTRY ORDERABLES Performing Organization Address City/State/ZIP [place] [address] (ABNORMAL) Hemogram (12/05/2019 4:18 AM EDT) Analysis Performed At Patho logist Time Signature WBC 8.6 4.0 - 9.[address] [facility] [address] x[facility](3[facility] LABORATORY RBC 4.28 (L) 4.58 - [place] DOV 5.54 [facility] x10(6)/[facility] LABORATORY Hemoglobin 12.4 (L) 13.7 - [facility] DOV 16.5 gm/dL [facility] LABORATORY Hematocrit 37.3 (L) 40.5 - [facility] 48.5 % [facility] LABORATORY MCV 87.1 82.9 - [facility] 93.1 [facility] LABORATORY MCH 29.0 27.5 - [place] DOV 32.1 pg [facility] LABORATORY MCHC 33.2 32.0 - [place] DOV 35.7 gm/dL [facility] LABORATORY Platelets 163 145 - [address] [address] LABORATORY RDWSD 46.4 (H) 36.0 - [facility] DOV 45.0 [facility] LABORATORY RDWCV 14.4 (H) 11.4 - [facility] DOV 13.8 % [facility] LABORATORY MPV 11.7 7.6 - 12.9 [facility] nRBC % Auto 0.0 % [facility] LABORATORY nRBC Abs Auto 0.000 0.000 - [place]INA MedPro 0.000 [facility] x10(3)/[facility] LABORATORY Specimen Anatomical Collection Method Collection Time Receive d Time (Source) Location / / Volume Laterality Blood specimen 12/05/2019 4:18 AM 020 4:31 (specimen) EDT AM EDT Resulting Agency Comment Spec In Lab Gretchen Yoon MD HEMATOLOGY ORDERABLES Performing Organization Address City/State/[place] [address] Cardiac for Morphology [...] For questions regarding this report, please contact [facility] number below. ? Electronically signed by: Roselyn Luciano [facility] ([phone]), at 12/04/2019 6:16 PM Narrative 12/04/2019 6:16 [...] from neck/greatest puja meter to back wall: MEXICAN 91, CAU 13: ??19 mm CORTES ??1, [...] from neck/greatest puja meter to back wall: [place] 91, CAU 13: 19 mm CORTES 1, [...] signed by: Roselyn Luciano [facility] ([phone]), at 12/04/2019 6:16 PM Gretchen Yoon MD IMG CT ORDERABLES (ABNORMAL) Hemogram (12/04/2019 12:55 PM EDT) Analysis Performed At Patho logist Time Signature WBC 8.9 4.0 - 9.5 [facility] x10(3)/[facility] LABORATORY RBC 4.69 4.58 - [facility] 5.54 [facility] x10(6)/[facility] LABORATORY Hemoglobin 13.5 (L) 13.7 - [facility] 16.5 gm/dL [facility] LABORATORY Hematocrit 41.7 40.5 - [place] MONAE 48.5 % [facility] LABORATORY MCV 88.9 82.9 - [place] MONAE 93.1 [facility] LABORATORY MCH 28.8 27.5 - [place] MONAE 32.1 pg [facility] LABORATORY MCHC 32.4 32.0 - [place] MONAE 35.7 gm/dL [facility] Platelets 196 145 - 357 [place]EL[place] x10(3)/[facility] LABORATORY RDWSD 46.7 (H) 36.0 - M[place]INA MONAE 45.0 [facility] LABORATORY RDWCV 14.5 (H) 11.4 - M[place] MONAE 13.8 % [facility] LABORATORY MPV 12.1 7.6 - 12.9 [place] DOV [facility] LABORATORY nRBC % Auto 0.0 % [facility] nRBC Abs Auto 0.000 0.000 - M[place] MONAE 0.000 [facility] x10(3)/[facility] LABORATORY Specimen Anatomical Collection Method Collection Time Receive d Time (Source) Location / / Volume Laterality Blood specimen 12/04/2019 12:55 0 1:06 (specimen) PM EDT PM EDT Resulting Agency Comment Spec In Lab Gretchen Yoon MD HEMATOLOGY ORDERABLES Performing Organization Address City/State/[place] [address] EKG 12 Lead (12/04/2019 10:43 AM EDT) Component Value Ref Range Test Analysis Performed Pathologis t Method Time At Signature Ventricular rate 158 BPM MUSE SYSTEM Atrial Rate 102 BPM MUSE SYSTEM QRS Duration 92 ms MUSE SYSTEM Q-T Interval 294 ms MUSE SYSTEM QTC Calculated 476 ms MUSE SYSTEM (Bezet) Calculated R [place] 17 degrees MUSE SYSTEM Calculated T [place] 90 degrees MUSE SYSTEM INTERPRETATION Atrial fibrillation with rapid ventricular response MUSE SYSTEM Possible Inferior infarct (cited on or before 29-NOV-2019) Abnormal ECG When compared with ECG of 30-NOV-2019 21:07, Atrial fibrillation has replaced Sinus rhythm Vent. rate has increased BY ??65 BPM Confirmed by MD Ceja Daniel ([id number]) on 12/05/2019 8:59:44 AM Specimen Anatomical Collection Method Collection Time Receive d Time (Source) Location / / Volume Laterality 12/04/2019 10:43 12/05/2019 8:59 AM EDT AM EDT Gretchen Yoon MD ECG ORDERABLES Performing Organization Address City/State/ZIP Code Phon e Number MUSE SYSTEM (ABNORMAL) Magnesium (12/04/2019 4:28 AM EDT) P athologist Signature Magnesium 1.17 (H) 0.69 - 1.07 [facility] mmol/L [facility] LABORATORY Specimen Anatomical Collection Method Collection Time Receive d Time (Source) Location / / Volume Laterality Blood specimen 12/04/2019 4:28 AM 020 4:40 (specimen) EDT AM EDT Resulting Agency Comment Spec In Lab Gretchen Yoon MD CHEMISTRY ORDERABLES Performing Organization Address City/State/ZIP [place] [address] (ABNORMAL) BMP w/fasting Glucose (12/04/2019 4:28 AM EDT) P athologist Signature Glucose 108 (H) 65 - 99 [facility] Fasting mg/dL [facility] LABORATORY Comment: ?Fasting* Glucose Interpretive C riteria [...] of Diabetes Mellitus, Position Statement from the [employer]. ??Diabete s Care, Volume 33, Supplement 1, Jul 2009 BUN 19 10 - 20 mg/dL [facility] LABORATORY Creatinine 0.89 0.80 - 1.50 mg/dL [facility] LABORATORY Sodium 135 135 - 145 [...] estions. Chloride 104 98 - 107 mmol/L [facility] LABORATORY CO2 19 (L) 22 - 31 mmol/L [facility] LABORATORY Anion Gap 12 5 - 15 mmol/L [facility] LABORATORY Calcium 8.5 8.5 - 10.5 mg/dL [facility] LABORATORY Estimated GFR 85 >=60 mL/min/1.73 m?? [facility] LABORATORY Comment: The eGFR was calculated using the CKD-EP I equation. As with all creatinine based estimates of kidney function, eGFR values calculated with the CKD-EPI equation are not accurate in patients wi th acute kidney failure, extremes of body mass or the acutely ill. http://FedBid/[facility] STROUDnkf eGFR 98 >=60 mL/min/1.73 m?? [facility] LABORATORY Comment: The eGFR was calculated using the CKD-EP I equation. As with all creatinine based estimates of kidney function, eGFR values calculated with the CKD-EPI equation are not accurate in patients wi th acute kidney failure, extremes of body mass or the acutely ill. [email or web address]/[facility] STROUDnkf Specimen Anatomical Collection Method Collection Time Receive d Time (Source) Location / / Volume Laterality Blood specimen 12/04/2019 4:28 AM 020 4:40 (specimen) EDT AM EDT Resulting Agency Comment Spec In Lab Gretchen Yoon MD CHEMISTRY ORDERABLES Performing Organization Address City/State/[place] [address] (ABNORMAL) Hemogram (12/04/2019 4:28 AM EDT) Analysis Performed At Patho logist Time Signature WBC 7.8 4.0 - 9.5 [facility] x10(3)/[facility] LABORATORY RBC 4.10 (L) 4.58 - [facility] 5.54 [facility] x10(6)/[facility] LABORATORY Hemoglobin 12.0 (L) 13.7 - M[place]INA MONAE 16.5 gm/dL [facility] LABORATORY Hematocrit 36.5 (L) 40.5 - M[place] MONAE 48.5 % [facility] LABORATORY MCV 89.0 82.9 - [facility] 93.1 [facility] LABORATORY MCH 29.3 27.5 - [place]ILL[place] 32.1 pg [facility] LABORATORY MCHC 32.9 32.0 - M[place] MONAE 35.7 gm/dL [facility] LABORATORY Platelets 151 145 - 357 [facility] x10(3)/[facility] LABORATORY RDWSD 46.9 (H) 36.0 - MELINA MONAE 45.0 [facility] LABORATORY RDWCV 14.4 (H) 11.4 - [place] DOV 13.8 % [facility] LABORATORY MPV 12.2 7.6 - 12.9 [facility] nRBC % Auto 0.0 % [facility] LABORATORY nRBC Abs Auto 0.000 0.000 - M[place] MONAE 0.000 [facility] x10(3)/[facility] LABORATORY Specimen Anatomical Collection Method Collection Time Receive d Time (Source) Location / / Volume Laterality Blood specimen 12/04/2019 4:28 AM 020 4:40 (specimen) EDT AM EDT Resulting Agency Comment Spec In Lab Gretchen Yoon MD HEMATOLOGY ORDERABLES Performing Organization Address City/State/ZIP [place] [address] Potassium (12/03/2019 7:55 PM EDT) P athologist Signature Potassium 3.9 3.5 - 5.0 [facility] mmol/L [facility] LABORATORY Comment: Please note: ??Patients with WBC [...] Yoon MD CHEMISTRY ORDERABLES Performing Organization Address City/[facility]/[place] [address] Potassium (12/03/2019 1:57 PM EDT) P athologist Signature Potassium 3.7 3.5 - 5.0 [facility] DOV mmol/L [facility] LABORATORY Comment: Please note: ??Patients with WBC [...] Yoon MD CHEMISTRY ORDERABLES Performing Organization Address City/[facility]/[place] [address] (ABNORMAL) Hemogram (12/03/2019 1:57 PM EDT) Analysis Performed At Patho logist Time Signature WBC 8.8 4.0 - 9.5 [place] DOV x10(3)/[facility] LABORATORY RBC 4.27 (L) 4.58 - [place] DOV 5.54 [facility] x10(6)/[facility] LABORATORY Hemoglobin 12.5 (L) 13.7 - [place] DOV 16.5 gm/dL [facility] LABORATORY Hematocrit 37.5 (L) 40.5 - [place] DOV 48.5 % [facility] LABORATORY MCV 87.8 82.9 - [place] DOV 93.1 [facility] LABORATORY MCH 29.3 27.5 - [place] DOV 32.1 pg [facility] LABORATORY MCHC 33.3 32.0 - [place] DOV 35.7 gm/dL [facility] LABORATORY Platelets 158 145 - 357 [place] DOV x10(3)/[facility] LABORATORY RDWSD 46.9 (H) 36.0 - [place] DOV 45.0 [facility] LABORATORY RDWCV 14.5 (H) 11.4 - [place] MONAE 13.8 % [facility] LABORATORY MPV 12.2 7.6 - 12.9 [place]INA MONAE fL [facility] LABORATORY nRBC % Auto 0.0 % [facility] LABORATORY nRBC Abs Auto 0.000 0.000 - M[place] MONAE 0.000 [facility] x10(3)/[facility] LABORATORY Specimen Anatomical Collection Method Collection Time Receive d Time (Source) Location / / Volume Laterality Blood specimen 12/03/2019 1:57 PM 020 2:21 (specimen) EDT PM EDT Resulting Agency Comment Spec In Lab Gretchen Yoon MD HEMATOLOGY ORDERABLES Performing Organization Address City/State/ZIP Code Phon e Number [address] Magnesium (12/03/2019 4:02 AM EDT) athologist Signature Magnesium 0.79 0.69 - 1.07 [facility] mmol/L [facility] LABORATORY Specimen Anatomical Collection Method Collection Time Receive d Time (Source) Location / / Volume Laterality Blood specimen 12/03/2019 4:02 AM 020 4:16 (specimen) EDT AM EDT Resulting Agency Comment Spec In Lab Gretchen Yoon MD CHEMISTRY ORDERABLES Performing Organization Address City/[facility]/ZIP Code Phon e Number [address] (ABNORMAL) BMP w/fasting Glucose (12/03/2019 4:02 AM EDT) P athologist Signature Glucose 100 (H) 65 - 99 [facility] Fasting mg/dL [facility] LABORATORY Comment: ?Fasting* Glucose Interpretive C riteria [...] of Diabetes Mellitus, Position Statement from the [employer]. ??Diabete s Care, Volume 33, Supplement 1, Jul 2009 BUN 17 10 - 20 mg/dL [facility] LABORATORY Creatinine 0.95 0.80 - 1.50 mg/dL [facility] LABORATORY Sodium 136 135 - 145 [...] estions. Chloride 103 98 - 107 mmol/L [facility] LABORATORY CO2 18 (L) 22 - 31 mmol/L [facility] LABORATORY Anion Gap 15 5 - 15 mmol/L [facility] LABORATORY Calcium 8.3 (L) 8.5 - 10.5 mg/dL [facility] LABORATORY Estimated GFR 79 >=60 mL/min/1.73 m?? [facility] LABORATORY Comment: The eGFR was calculated using the CKD-EP I equation. As with all creatinine based estimates of kidney function, eGFR values calculated with the CKD-EPI equation are not accurate in patients wi th acute kidney failure, extremes of body mass or the acutely ill. http://FedBid/[facility] STR[facility]Dnkf eGFR 92 >=60 mL/min/1.73 m?? [facility] LABORATORY Comment: The eGFR was calculated using the CKD-EP I equation. As with all creatinine based estimates of kidney function, eGFR values calculated with the CKD-EPI equation are not accurate in patients wi th acute kidney failure, extremes of body mass or the acutely ill. http://FedBid/[facility]Dnkf Specimen Anatomical Collection Method Collection Time Receive d Time (Source) Location / / Volume Laterality Blood specimen 12/03/2019 4:02 AM 020 4:16 (specimen) EDT AM EDT Resulting Agency Comment Spec In Lab Gretchen Yoon MD CHEMISTRY ORDERABLES Performing Organization Address City/State/ZIP Code Phon e Number [address] (ABNORMAL) Hemogram (12/03/2019 4:02 AM EDT) Analysis Performed At Patho logist Time Signature WBC 9.1 4.0 - 9.5 [facility] DOV x10(3)/[facility] LABORATORY RBC 4.01 (L) 4.58 - [place] DOV 5.54 [facility] x10(6)/[facility] LABORATORY Hemoglobin 11.8 (L) 13.7 - [place] DOV 16.5 gm/dL [facility] LABORATORY Hematocrit 35.6 (L) 40.5 - [place] DOV 48.5 % [facility] LABORATORY MCV 88.8 82.9 - [facility] 93.1 [facility] LABORATORY MCH 29.4 27.5 - [place] DOV 32.1 pg [facility] LABORATORY MCHC 33.1 32.0 - [place] DOV 35.7 gm/dL [facility] LABORATORY Platelets 130 (L) 145 - [address] [address] LABORATORY RDWSD 46.6 (H) 36.0 - [facility] DOV 45.0 [facility] LABORATORY RDWCV 14.4 (H) 11.4 - [facility] DOV 13.8 % [facility] LABORATORY MPV 12.4 7.6 - 12.9 [facility] DOV [facility] LABORATORY nRBC % Auto 0.0 % [facility] LABORATORY nRBC Abs Auto 0.000 0.000 - [place] DOV 0.000 [facility] x10(3)/[facility] LABORATORY Specimen Anatomical Collection Method Collection Time Receive d Time (Source) Location / / Volume Laterality Blood specimen 12/03/2019 4:02 AM 020 4:16 (specimen) EDT AM EDT Resulting Agency Comment Spec In Lab Gretchen Yoon MD HEMATOLOGY ORDERABLES Performing Organization Address City/State/ZIP [place] [address] XR Chest One View [...] (H) 4.0 - 9.[address] [address] x[facility](3[facility] LABORATORY RBC 4.00 (L) 4.58 - [place] DOV 5.54 [facility] x10(6)/[facility] LABORATORY Hemoglobin 11.9 (L) 13.7 - [facility] DOV 16.5 gm/dL [facility] LABORATORY Hematocrit 35.7 (L) 40.5 - [place] DOV 48.5 % [facility] LABORATORY MCV 89.3 82.9 - [place] DOV 93.1 [facility] LABORATORY MCH 29.8 27.5 - [place] DOV 32.1 pg [facility] LABORATORY MCHC 33.3 32.0 - [place] DOV 35.7 gm/dL [facility] LABORATORY Platelets 120 (L) 145 - 357 [facility] x10(3)/[facility] LABORATORY RDWSD 47.5 (H) 36.0 - [place] DOV 45.0 [facility] LABORATORY RDWCV 14.6 (H) 11.4 - [place] DOV 13.8 % [facility] LABORATORY MPV 12.0 7.6 - 12.9 [facility] nRBC % Auto 0.0 % [facility] LABORATORY nRBC Abs Auto 0.000 0.000 - [place] DOV 0.000 [facility] x10(3)/[facility] LABORATORY Specimen Anatomical Collection Method Collection Time Receive d Time (Source) Location / / Volume Laterality Blood specimen 12/02/2019 12:50 0 1:22 (specimen) PM EDT PM EDT Resulting Agency Comment Spec In Lab Gretchen Yoon MD HEMATOLOGY ORDERABLES Performing Organization Address City/State/ZIP Code Phon e Number [address] Blue Tube HOLD (12/02/2019 4:55 AM EDT) P athologist Signature Blue Hold Sample in [facility]. [facility] LABORATORY Specimen Anatomical Collection Method Collection Time Receive d Time (Source) Location / / Volume Laterality Blood specimen Venous Draw / 12/02/2019 4:55 AM 2019 5:03 (specimen) Unknown EDT AM EDT Darrell Glasgow MD HEMATOLOGY ORDERABLES Performing Organization Address City/[facility]/ZIP Code Phon e Number [address] Magnesium (12/02/2019 4:55 AM EDT) athologist Signature Magnesium 0.85 0.69 - 1.07 [facility] mmol/L [facility] LABORATORY Specimen Anatomical Collection Method Collection Time Receive d Time (Source) Location / / Volume Laterality Blood specimen 12/02/2019 4:55 AM 020 5:02 (specimen) EDT AM EDT Resulting Agency Comment Spec In Lab Gretchen Yoon MD CHEMISTRY ORDERABLES Performing Organization Address City/State/ZIP Code Phon e Number [address] (ABNORMAL) BMP w/fasting Glucose (12/02/2019 4:55 AM EDT) P athologist Signature Glucose 114 (H) 65 - 99 [facility] Fasting mg/dL [facility] LABORATORY Comment: ?Fasting* Glucose Interpretive C riteria [...] of Diabetes Mellitus, Position Statement from the [employer]. ??Diabete s Care, Volume 33, Supplement 1, Jul 2009 BUN 13 10 - 20 mg/dL [facility] LABORATORY Creatinine 0.93 0.80 - 1.50 mg/dL [facility] LABORATORY Sodium 135 135 - 145 [...] estions. Chloride 105 98 - 107 mmol/L [facility] LABORATORY CO2 18 (L) 22 - 31 mmol/L [facility] LABORATORY Anion Gap 12 5 - 15 mmol/L [facility] LABORATORY Calcium 8.1 (L) 8.5 - 10.5 mg/dL [facility] LABORATORY Estimated GFR 81 >=60 mL/min/1.73 m?? [facility] LABORATORY Comment: The eGFR was calculated using the CKD-EP I equation. As with all creatinine based estimates of kidney function, eGFR values calculated with the CKD-EPI equation are not accurate in patients wi th acute kidney failure, extremes of body mass or the acutely ill. http://FedBid/[facility]Dnkf eGFR 94 >=60 mL/min/1.73 m?? [facility] LABORATORY Comment: The eGFR was calculated using the CKD-EP I equation. As with all creatinine based estimates of kidney function, eGFR values calculated with the CKD-EPI equation are not accurate in patients wi th acute kidney failure, extremes of body mass or the acutely ill. http://FedBid/[facility]nkf Specimen Anatomical Collection Method Collection Time Receive d Time (Source) Location / / Volume Laterality Blood specimen 12/02/2019 4:55 AM 020 5:02 (specimen) EDT AM EDT Resulting Agency Comment Spec In Lab Gretchen Yoon MD CHEMISTRY ORDERABLES Performing Organization Address City/State/ZIP Code Phon e Number [address] (ABNORMAL) Hemogram (12/02/2019 4:55 AM EDT) Analysis Performed At Patho logist Time Signature WBC 9.3 4.0 - 9.5 [facility] x[facility](3[facility] LABORATORY RBC 3.71 (L) 4.58 - [place] DOV 5.54 [facility] x10(6)/[facility] LABORATORY Hemoglobin 10.8 (L) 13.7 - [facility] 16.5 gm/dL [facility] LABORATORY Hematocrit 33.1 (L) 40.5 - [facility] 48.5 % [facility] LABORATORY MCV 89.2 82.9 - [facility] 93.1 [facility] LABORATORY MCH 29.1 27.5 - [place] DOV 32.1 pg [facility] LABORATORY MCHC 32.6 32.0 - [place] DOV 35.7 gm/dL [facility] LABORATORY Platelets 93 (L) 145 - 357 [facility] x10(3)/[facility] LABORATORY RDWSD 47.1 (H) 36.0 - [facility] DOV 45.0 [facility] LABORATORY RDWCV 14.6 (H) 11.4 - [facility] DOV 13.8 % [facility] LABORATORY MPV 11.7 7.6 - 12.9 [facility] nRBC % Auto 0.0 % [facility] LABORATORY nRBC Abs Auto 0.000 0.000 - [place] DOV 0.000 [facility] x10(3)/[facility] LABORATORY Specimen Anatomical Collection Method Collection Time Receive d Time (Source) Location / / Volume Laterality Blood specimen 12/02/2019 4:55 AM 020 5:02 (specimen) EDT AM EDT Resulting Agency Comment Spec In Lab Gretchen Yoon MD HEMATOLOGY ORDERABLES Performing Organization Address City/State/ZIP [place] [address] Transfuse 1 unit platelets, [...] For questions regarding this report, please contact [facility] number below. ? Electronically signed by: Angel Luis Barboza MD, [facility] ([phone]), at 12/01/2019 8:02 PM Narrative 12/01/2019 8:02 [...] 6:20 PM EDT) athologist Signature Dispensed? Yes [facility] LABORATORY Specimen Anatomical Collection Method Collection Time Receive d Time (Source) Location / / Volume Laterality Blood specimen 12/01/2019 6:20 PM 020 6:18 (specimen) EDT PM EDT Gretchen Yoon MD BLOOD BANK ORDERABLES Performing Organization Address City/State/ZIP [place] [address] Duplex for DVT, Arm, Unilat (12/01/2019 5:08 PM EDT) Component Value Ref Test Analysis Performed At [facility] Range Method Time Signature VB Text Department: Vascular Surgery Lab VASCUBASE Report Patient: [id number] (ANGEL LUIS SALINAS) CPT: 81925 ICD10: R60.0 Referring Physician: GRETCHEN YOON ?? [...] For questions regarding this report, please contact [facility] number below. ? Electronically signed by: Merari Collins [facility] ([phone]), at 12/01/2019 3:53 PM Narrative 12/01/2019 3:53 PM EDT EXAMINATION: CT HEAD WO CONTRAST (GENERIC) CLINICAL HISTORY: Headache, intracranial hemorrhage suspected Serial CT scan: please assess for propag ation of known ICH noted on prior Head CT/imaging. TECHNIQUE: CT head performed without intravenous co ntrast administration. COMPARISON: Head CT 11/30/2019. CT angiogram of the [place] 11/01. FINDINGS: Ventricles are normal in size. Basal cis terns are patent. Unchanged hyperdense 2.3 x 0.7 x 0.6 cm tubular hemorrhage projecting along the course of the left optic tract (axial se [facility] 2 image 16), consistent [...] Head CT 11/30/2019. CT angiogram of the [place] 11/01. FINDINGS: Ventricles are normal [...] Scan, Peripheral Blood (12/01/2019 12:51 PM EDT) [facility] Method Time Signature Plat Estimate Decreased [facility] [facility] RBC Morphology Normal [facility] Giant Less than 1 /HPF [facility] LABORATORY Specimen Anatomical Collection Method Collection Time Receive d Time (Source) Location / / Volume Laterality Blood specimen 12/01/2019 12:51 0 1:05 (specimen) PM EDT PM EDT Resulting Agency Comment Spec In Lab Riki Stevens MD HEMATOLOGY ORDERABLES Performing Organization Address City/State/[place] [address] (ABNORMAL) Differential, Automated (12/01/2019 12:51 PM EDT) [facility] Method Time Signature Neutrophils % 74.9 % [facility] Neutr Abs (ANC) 6.34 (H) 1.70 - [facility] 6.10 [facility] x10(3)/[facility] LABORATORY Lymphocytes % 11.4 % [facility] Lymphocytes Abs 1.0 0.9 - 3.2 [facility] x10(3)/[facility] LABORATORY Monocytes % 12.4 % [facility] Monocyte Abs 1.0 (H) 0.3 - 0.9 [facility] x10(3)/[facility] LABORATORY Eosinophils % 0.4 % [facility] Eosinophils Abs 0.0 0.0 - 0.4 [facility] x10(3)/[facility] LABORATORY Basophils % 0.4 % [facility] Basophils Abs 0.0 0.0 - 0.1 [facility] x10(3)/[facility] LABORATORY Immature Gran % 0.50 % [facility] Comment: Immature granulocytes(IG's)percentage an d absolute count will include metamyelocytes, myelocytes, and promyelo cytes. Blood smears from CBCs yielding IG's will be scanned manually for concor dance. If this scan disagrees with the automated IG or if promyelocytes are not ed, a manual differential will be performed. Pita Gran Abs 0.04 0.00 - 0.04 x10(3)/[facility] Specimen Anatomical Collection Method Collection Time Receive d Time (Source) Location / / Volume Laterality Blood specimen 12/01/2019 12:51 0 1:05 (specimen) PM EDT PM EDT Resulting Agency Comment Spec In Lab Riki Stevens MD HEMATOLOGY ORDERABLES Performing Organization Address City/State/[place] [address] (ABNORMAL) Hemogram (12/01/2019 12:51 PM EDT) Analysis Performed At Patho logist Time Signature WBC 8.4 4.0 - 9.5 [facility] x10(3)/[facility] LABORATORY RBC 3.69 (L) 4.58 - [facility] 5.54 [facility] x10(6)/[facility] LABORATORY Hemoglobin 10.8 (L) 13.7 [facility] 16.5 gm/dL [facility] Hematocrit 32.4 (L) 40.5 - [facility] 48.5 % [facility] MCV 87.8 82.9 [facility] 93.1 fL [facility] MCH 29.3 27.5 [facility] 32.1 pg [facility] MCHC 33.3 32.0 - [facility] 35.7 gm/dL [facility] Platelets 72 (L) 145 - 357 [facility] x10(3)/[facility] LABORATORY RDWSD 47.2 (H) 36.0 - [facility] 45.0 [facility] LABORATORY RDWCV 14.6 (H) 11.4 - [facility] 13.8 % [facility] MPV 12.2 7.6 - 12.9 [facility] LABORATORY nRBC % Auto 0.0 % [facility] nRBC Abs Auto 0.000 0.000 - [facility] 0.000 [facility] x10(3)/[facility] LABORATORY Specimen Anatomical Collection Method Collection Time Receive d Time (Source) Location / / Volume Laterality Blood specimen 12/01/2019 12:51 0 1:05 (specimen) PM EDT PM EDT Resulting Agency Comment Spec In Lab Riki Stevens MD HEMATOLOGY ORDERABLES Performing Organization Address City/[facility]/ZIP Code Phon e Number [address] (ABNORMAL) Coox2 (12/01/2019 11:42 AM EDT) Analysis Performed At Patho logist Time Signature pO2 Coox 30 mmHg [facility] Hgb Blood Gas 11.6 (L) 13.7 - [facility] 16.5 gm/dL [facility] O2HB Coox 60.8 % [facility] COHB Coox 0.6 % [facility] Comment: Nonsmokers: 0.5-1.5% COHB Smokers: Variable, but usually less than 10% Toxic: 20-30% COHB Lethal: Greater than 60% COHB METHB Coox 0.6 <=1.5 % [facility] Source Coox Mixed Venous [facility] Specimen Anatomical Collection Method Collection Time Receive d Time (Source) Location / / Volume Laterality Blood specimen 12/01/2019 11:42 0 (specimen) AM EDT 11:42 AM EDT Gretchen Yoon MD CHEMISTRY ORDERABLES Performing Organization Address City/[facility]/ZIP Code Phon e Number [address] Sedimentation rate (12/01/2019 3:55 AM EDT) P athologist Signature Sed Rate 25 3 - 46 [facility] mm/hr [facility] Comment: Effective June 11, 2019 new [...] Winn MD HEMATOLOGY ORDERABLES Performing Organization Address City/[facility]/ZIP Code Phon e Number [address] (ABNORMAL) CRP, acute inflammation (12/01/2019 3:55 AM EDT) P athologist Signature CRP 92.5 (H) <=4.9 mg/L [facility] Specimen Anatomical Collection Method Collection Time Receive d Time (Source) Location / / Volume Laterality Blood specimen Venous Draw / 12/01/2019 3:55 AM 2019 4:06 (specimen) Unknown EDT AM EDT Resulting Agency Comment Spec In Lab Rossy Winn MD CHEMISTRY ORDERABLES Performing Organization Address City/[facility]/ZIP Code Phon e Number [address] ABORH Recheck Status (12/01/2019 3:55 AM EDT) Patholo gist Method Time Signature ABORH Recheck Order Placed [facility] LABORATORY ABORH Type Complete [facility] LABORATORY Specimen Anatomical Collection Method Collection Time Receive d Time (Source) Location / / Volume Laterality Blood specimen 12/01/2019 3:55 AM 020 4:15 (specimen) EDT AM EDT Resulting Agency Comment Spec In Lab Lewis Gee MD BLOOD BANK ORDERABLES Performing Organization Address City/[facility]/ZIP Code Phon e Number [address] Antibody screen (12/01/2019 3:55 AM EDT) Patholo gist Method Time Signature Ab Screen Negative [facility] LABORATORY Expires at 12/04/2019 MELINA MARSHDOV [id number] on: [facility] Specimen Anatomical Collection Method Collection Time Receive d Time (Source) Location / / Volume Laterality Blood specimen 12/01/2019 3:55 AM 020 4:15 (specimen) EDT AM EDT Resulting Agency Comment Spec In Lab Lewis Gee MD BLOOD BANK ORDERABLES Performing Organization Address City/[facility]/ZIP [place] [address] ABO/Rh Typing (12/01/2019 3:55 AM EDT) athologist Signature ABORh Type AB Pos [facility] Specimen Anatomical Collection Method Collection Time Receive d Time (Source) Location / / Volume Laterality Blood specimen 12/01/2019 3:55 AM 020 4:15 (specimen) EDT AM EDT Resulting Agency Comment Spec In Lab Lewis Gee MD BLOOD BANK ORDERABLES Performing Organization Address City/[facility] [place] [address] (ABNORMAL) Troponin (12/01/2019 3:55 AM EDT) athologist [facility] Troponin-T 4.35 (H) 0.00 - [facility] 0.00 ng/mL [facility] Comment: result rechecked-slw The 99th percentile for Troponin T is le ss than 0.01 ng/mL, any detectable cTnT concentration using this assay should be considered elevated. According to the third universal definit ion of myocardial infarction the following criteria with a clinical prese ntation consistent with acute myocardial ischemia meets the diagnosis for a myocardial infarction (NH). Detection of a rise and/or fall of [...] additional sample may be indicated. Reference: Third [place] Definition of Myocardial Infarction. Journal of the [employer] 2012;60:1581-98 Specimen Anatomical Collection Method Collection Time Receive d Time (Source) Location / / Volume Laterality Blood specimen 12/01/2019 3:55 AM 020 4:00 (specimen) EDT AM EDT Resulting Agency Comment Spec In Lab Gretchen Yoon MD CHEMISTRY ORDERABLES Performing Organization Address City/[facility]/ZIP Code Phon e Number [address] Magnesium (12/01/2019 3:55 AM EDT) athologist Signature Magnesium 0.96 0.69 - 1.07 [facility] mmol/L [facility] Specimen Anatomical Collection Method Collection Time Receive d Time (Source) Location / / Volume Laterality Blood specimen 12/01/2019 3:55 AM 020 4:00 (specimen) EDT AM EDT Resulting Agency Comment Spec In Lab Gretchen Yoon MD CHEMISTRY ORDERABLES Performing Organization Address City/[facility]/ZIP [facility] [place] [address] (ABNORMAL) BMP w/fasting Glucose (12/01/2019 3:55 AM EDT) P athologist Signature Glucose 148 (H) 65 - 99 [facility] Fasting mg/dL [facility] Comment: ?Fasting* Glucose Interpretive C riteria [...] of Diabetes Mellitus, Position Statement from the [employer]. ??Diabete s Care, Volume 33, Supplement 1, Jul 2009 BUN 11 10 - 20 mg/dL [facility] Creatinine 0.96 0.80 - 1.50 mg/dL [facility] Sodium 132 (L) 135 - [...] estions. Chloride 105 98 - 107 mmol/L [facility] CO2 17 (L) 22 - 31 mmol/L [facility] Anion Gap 10 5 - 15 mmol/L [facility] Calcium 7.6 (L) 8.5 - 10.5 mg/dL [facility] Estimated GFR 78 >=60 mL/min/1.73 m?? [facility] Comment: The eGFR was calculated using the CKD-EP I equation. As with all creatinine based estimates of kidney function, eGFR values calculated with the CKD-EPI equation are not accurate in patients wi th acute kidney failure, extremes of body mass or the acutely ill. [email or web address] STR[facility]Dnkf eGFR 91 >=60 mL/min/1.73 m?? [facility] Comment: The eGFR was calculated using the CKD-EP I equation. As with all creatinine based estimates of kidney function, eGFR values calculated with the CKD-EPI equation are not accurate in patients wi th acute kidney failure, extremes of body mass or the acutely ill. [email or web address] [email or web address] Specimen Anatomical Collection Method Collection Time Receive d Time (Source) Location / / Volume Laterality Blood specimen 12/01/2019 3:55 AM 020 4:00 (specimen) EDT AM EDT Resulting Agency Comment Spec In Lab Gretchen Yoon MD CHEMISTRY ORDERABLES Performing Organization Address City/State/[place] [address] (ABNORMAL) Hemogram (12/01/2019 3:55 AM EDT) Analysis Performed At Patho logist Time Signature WBC 11.0 (H) 4.0 - 9.[address] [facility] x10(3)/[facility] LABORATORY RBC 3.46 (L) 4.58 - [facility] DOV 5.54 [facility] x10(6)/[facility] LABORATORY Hemoglobin 10.2 (L) 13.7 - [facility] 16.5 gm/dL [facility] Hematocrit 31.2 (L) 40.5 - [facility] 48.5 % [facility] MCV 90.2 82.9 - [facility] 93.1 [facility] LABORATORY MCH 29.5 27.5 - [facility] 32.1 pg [facility] MCHC 32.7 32.0 - [facility] 35.7 gm/dL [facility] Platelets 98 (L) 145 - 357 [facility] x10(3)/[facility] LABORATORY RDWSD 47.9 (H) 36.0 - [facility] 45.0 [facility] LABORATORY RDWCV 14.6 (H) 11.4 - [facility] DOV 13.8 % [facility] MPV 12.3 7.6 - 12.9 [facility] LABORATORY nRBC % Auto 0.0 % [facility] nRBC Abs Auto 0.000 0.000 - [facility] 0.000 [facility] x10(3)/[facility] LABORATORY Specimen Anatomical Collection Method Collection Time Receive d Time (Source) Location / / Volume Laterality Blood specimen 12/01/2019 3:55 AM 020 4:00 (specimen) EDT AM EDT Resulting Agency Comment Spec In Lab Gretchen Yoon MD HEMATOLOGY ORDERABLES Performing Organization Address City/State/[place] [address] (ABNORMAL) BLOOD GAS 2 ARTERIAL (11/30/2019 10:39 PM EDT) Analysis Performed At Patho logist Time Signature pH Art 7.45 7.35 - [facility] 7.45 [facility] pCO2 Art 23 (L) 35 - 45 [facility] mmHg [facility] pO2 Art 76 (L) 85 - 104 [facility] mmHg [facility] HCO3 Art 15.3 (L) 20.0 - [facility] 26.0 [facility] mmol/L [facility] BE Art -8.7 (L) -3.0 - 3.0 [facility] mmol/L [facility] Hgb Blood Gas 11.7 (L) 13.7 - [facility] 16.5 gm/dL [facility] O2HB Art 94.2 94.0 - [facility] 97.0 % [facility] COHB Art 0.5 % [facility] Comment: Nonsmokers: 0.5-1.5% COHB Smokers: Variable, but usually less than 10% Toxic: 20-30% COHB Lethal: Greater than 60% COHB METHB Art 0.6 <=1.5 % [facility] Na Whole Blood 133 (L) 135 - 145 mmol/L [facility] K Whole Blood 3.8 3.5 - 5.0 mmol/L [facility] Comment: Please note: Patients with WBC >100,000 may have falsely elevated Potassium levels. Contact the Clinical Chemistry L aboratory if there are any questions. ICa Whole Blood 1.10 (L) 1.15 - 1.33 mmol/L [facility] Comment: Note: ??Total bilirubin higher [...] STATE [facility] FIO2 Art 100 % [facility] PF Ratio Art 76 [facility] Specimen Anatomical Collection Method Collection Time Receive d Time (Source) Location / / Volume Laterality Blood specimen 11/30/2019 10:39 0 (specimen) PM EDT 10:39 PM EDT Gretchen Yoon MD CHEMISTRY ORDERABLES Performing Organization Address City/[facility]/ZIP [place] [address] EKG 12 Lead (11/30/2019 [...] (Bezet) Calculated P 12 degrees [facility] [place] Calculated R 19 degrees [facility] [place] Calculated T -47 degrees [facility] [place] INTERPRETATION Sinus rhythm with Premature supraventricular [...] Yoon MD ECG ORDERABLES Performing Organization Address City/[facility]/ZIP Code Phon e Number MUSE SYSTEM (ABNORMAL) Urinalysis Microscopic Exam (11/30/2019 8:40 PM EDT) P athologist Signature RBC UA 27 (H) 0 - 3 /HPF [facility] WBC UA 4 (H) 0 - 3 /HPF [facility] Hyaline Cast 3 (H) 0 - 2 /LPF [facility] Specimen (Source) Anatomical Collection Method Collection Time Re ceived Time Location / / Volume Laterality Urine specimen 11/30/2019 8:40 11/30/2019 obtained via PM EDT 10:51 PM EDT indwelling urinary catheter (specimen) Resulting Agency Comment Spec In Lab Rossy Winn MD URINE ORDERABLES Performing Organization Address City/State/ZIP Code Phon e Number [address] (ABNORMAL) Urinalysis with reflex Culture (11/30/2019 8:40 PM EDT) Patholo gist Method Time Signature Glucose UA Negative Negative [facility] mg/dL [facility] Protein UA Negative Negative [facility] mg/dL [facility] Bilirubin UA Negative Negative [facility] mg/dL [facility] Comment: Clinical correlation required for positi ve Urine Bilirubin results as false positive may occur with some drugs and d rug related products. If a false positive is suspected a serum total bili morales should be considered if clinically indicated. Urobilinogen UA Normal Normal mg/dL [facility] pH UA 5.5 5.0 - 8.0 [facility] Blood UA Moderate (A) Negative mg/dL [facility] Ketones UA 40 (A) Negative mg/dL [facility] Nitrite UA Negative Negative [facility] Leukocytes UA Trace (A) Negative [facility] LABORATORY Appearance UA Clear Clear [facility] Spec Canadensis UA 1.026 1.006 - 1.030 [facility] Color UA Yellow Yellow [facility] Culture Reflexed No [facility] Specimen (Source) Anatomical Collection Method Collection Time Re ceived Time Location / / Volume Laterality Urine specimen 11/30/2019 8:40 11/30/2019 obtained via PM EDT 10:51 PM EDT indwelling urinary catheter (specimen) Resulting Agency Comment Spec In Lab Gretchen Yoon MD URINE ORDERABLES Performing Organization Address City/[facility]/ZIP Code Phon e Number [address] (ABNORMAL) pro-Brain Natriuretic Peptide (11/30/2019 8:30 PM EDT) athologist Signature ProBNP 2,802 (H) <=125 [facility]/mL [facility] Specimen Anatomical Collection Method Collection Time Receive d Time (Source) Location / / Volume Laterality Blood specimen Venous Draw / 11/30/2019 8:30 PM 2019 8:36 (specimen) Unknown EDT PM EDT Resulting Agency Comment Spec In Lab Rossy Winn MD CHEMISTRY ORDERABLES Performing Organization Address City/[facility]/ZIP Code [place] [address] (ABNORMAL) Troponin (11/30/2019 8:30 PM EDT) P athologist Signature Troponin-T 5.04 (H) 0.00 - MELINA MONAE 0.00 ng/mL [facility] Comment: The 99th percentile for Troponin T is le ss than 0.01 ng/mL, any detectable cTnT concentration using this assay should be considered elevated. According to the third universal definit ion of myocardial infarction the following criteria with a clinical prese ntation consistent with acute myocardial ischemia meets the diagnosis for a myocardial infarction (NH). Detection of a rise and/or fall of [...] additional sample may be indicated. Reference: Third [place] Definition of Myocardial Infarction. Journal of the [employer] 2012;60:1581-98 Specimen Anatomical Collection Method Collection Time Receive d Time (Source) Location / / Volume Laterality Blood specimen Venous Draw / 11/30/2019 8:30 PM 2019 8:36 (specimen) Unknown EDT PM EDT Resulting Agency Comment Spec In Lab Rossy Winn MD CHEMISTRY ORDERABLES Performing Organization Address City/State/[place] [address] [facility] [address] Magnesium (11/30/2019 8:30 PM EDT) athologist Signature Magnesium 0.79 0.69 - 1.07 [facility] mmol/L [facility] Specimen Anatomical Collection Method Collection Time Receive d Time (Source) Location / / Volume Laterality Blood specimen 11/30/2019 8:30 PM 020 8:35 (specimen) EDT PM EDT Resulting Agency Comment Spec In Lab Gretchen Yoon MD CHEMISTRY ORDERABLES Performing Organization Address City/State/ZIP Code Phon e Number [address] (ABNORMAL) Basic Metabolic Panel (non-fasting) (11/30/2019 8:30 PM EDT) athologist Signature Glucose Lvl 132 65 - 199 [facility] mg/dL [facility] Comment: Diabetes: >=200 mg/dL plus symp toms BUN 12 10 - 20 mg/dL [facility] Creatinine 0.94 0.80 - 1.50 mg/dL [facility] Sodium 136 135 - 145 [...] Chloride 108 (H) 98 - 107 mmol/L [facility] CO2 17 (L) 22 - 31 mmol/L [facility] Anion Gap 11 5 - 15 mmol/L [facility] Calcium 7.9 (L) 8.5 - 10.5 mg/dL [facility] Estimated GFR 80 >=60 mL/min/1.73 m?? [facility] Comment: The eGFR was calculated using the CKD-EP I equation. As with all creatinine based estimates of kidney function, eGFR values calculated with the CKD-EPI equation are not accurate in patients wi th acute kidney failure, extremes of body mass or the acutely ill. [email or web address]nkf eGFR 93 >=60 mL/min/1.73 m?? [facility] Comment: The eGFR was calculated using the CKD-EP I equation. As with all creatinine based estimates of kidney function, eGFR values calculated with the CKD-EPI equation are not accurate in patients wi th acute kidney failure, extremes of body mass or the acutely ill. [email or web address]OUDnkf Specimen Anatomical Collection Method Collection Time Receive d Time (Source) Location / / Volume Laterality Blood specimen 11/30/2019 8:30 PM 020 8:35 (specimen) EDT PM EDT Resulting Agency Comment Spec In Lab Gretchen Yoon MD CHEMISTRY ORDERABLES Performing Organization Address [facility]/ZIP [facility] Phon e Number [address] Blood culture (11/30/2019 8:30 PM EDT) Patholo gist Method Time Signature Blood Culture No growth MELINA MONAE at 5 days. [facility] Specimen Anatomical Collection Method Collection Time Receive d Time (Source) Location / / Volume Laterality Blood specimen 11/30/2019 8:30 PM 020 9:40 (specimen) EDT PM EDT Comment: L HAND Resulting Agency Comment Spec In Lab Gretchen Yoon MD MICROBIOLOGY - BLOOD ORDERAB LES Performing Organization Address City/[facility] Code Phon e Number [address] Blood culture (11/30/2019 8:30 PM EDT) Patholo gist Method Time Signature Blood Culture No growth MELINA WHITTENCOCK at 5 days. [facility] Specimen Anatomical Collection Method Collection Time Receive d Time (Source) Location / / Volume Laterality Blood specimen 11/30/2019 8:30 PM 020 9:40 (specimen) EDT PM EDT Comment: R HAND Resulting Agency Comment Spec In Lab Gretchen Yoon MD MICROBIOLOGY - BLOOD ORDERAB LES Performing Organization Address City/State/ZIP Code Phon e Number [place] [id number] HOSPITAL LAB[address]ORY [address] XR Chest One View [...] Time Signature pH Art 7.45 7.35 - [facility] 7.45 [facility] LABORATORY pCO2 Art 27 (L) 35 - 45 [facility] mmHg [facility] LABORATORY pO2 Art 68 (L) 85 - 104 [facility] mmHg [facility] LABORATORY HCO3 Art 18.2 (L) 20.0 - [facility] 26.0 [facility] mmol/L HOSPITAL LABORATORY BE Art -5.9 (L) -3.0 - 3.0 [facility] mmol/L [facility] LABORATORY Hgb Blood Gas 12.4 (L) 13.7 - [facility] 16.5 gm/dL [facility] LABORATORY O2HB Art 93.1 (L) 94.0 - [facility] 97.0 % [facility] LABORATORY COHB Art 0.8 % [facility] LABORATORY Comment: Nonsmokers: 0.5-1.5% COHB Smokers: Variable, but usually less than 10% Toxic: 20-30% COHB Lethal: Greater than 60% COHB METHB Art 0.4 <=1.5 % [facility] LABORATORY Na Whole Blood 133 (L) 135 - 145 mmol/L [facility] LABORAT[facility] K Whole Blood 3.6 3.5 - 5.0 mmol/L [facility] LABORATORY Comment: Please note: Patients with WBC >100,000 may have falsely elevated Potassium levels. Contact the Clinical Chemistry L aboratory if there are any questions. ICa Whole Blood 1.13 (L) 1.15 - 1.33 mmol/L [facility] LABORATORY Comment: Note: ??Total bilirubin higher [...] [facility] Flow Art 5.0 LPM [facility] LABORATORY Specimen Anatomical Collection Method Collection Time Receive d Time (Source) Location / / Volume Laterality Blood specimen 11/30/2019 8:09 PM 020 8:09 (specimen) EDT PM EDT Gretchen Yoon MD CHEMISTRY ORDERABLES Performing Organization Address City/State/[place] [address] Angiogram [place] (11/30/2019 4:36 PM EDT) Anatomical [...] CT HEAD WO CONTRAST (GENERIC), CT ANGIOGRAM [place] CLINICAL HISTORY: Headache, intracranial hemorrhage suspected F/U on known ICH - assessing for propaga tion TECHNIQUE: CT head performed without intravenous co ntrast administration. CT angiogram [place] 65 cc Omnipaque 350 administered [...] HEAD WO CONTRAST (GENERI C), CT ANGIOGRAM [place] CLINICAL HISTORY: Headache, intracranial hemorrhage suspected F/U on known ICH - assessing for propaga tion TECHNIQUE: CT head performed without intravenous co ntrast administration. CT angiogram [place] 65 cc Omnipaque 350 administered [...] CT HEAD WO CONTRAST (GENERIC), CT ANGIOGRAM [place] CLINICAL HISTORY: Headache, intracranial hemorrhage suspected F/U on known ICH - assessing for propaga tion TECHNIQUE: CT head performed without intravenous co ntrast administration. CT angiogram [place] 65 cc Omnipaque 350 administered [...] HEAD WO CONTRAST (GENERI C), CT ANGIOGRAM [place] CLINICAL HISTORY: Headache, intracranial hemorrhage suspected F/U on known ICH - assessing for propaga tion TECHNIQUE: CT head performed without intravenous co ntrast administration. CT angiogram [place] 65 cc Omnipaque 350 administered [...] Angel Luis Barboza MD, [facility] ([phone]), at 11/30/2019 5:04 PM Gretchen Yoon MD [...] 453 ms MUSE SYSTEM (Bezet) Calculated P [place] 52 degrees MUSE SYSTEM Calculated R [place] 5 degrees MUSE SYSTEM Calculated T [place] -60 degrees MUSE SYSTEM INTERPRETATION Sinus [...] Corcoran ? (Age): 1945(74y) Med Rec#: ? [id number] ?Sex: ?M ? Site Loc: ? [facility] ?Ht / Wt: ??178(cm)/64(kg) Pt. Loc: ?CCU ? BSA: ?1.8 Study Date: ?? 11/30/2019 ?Pt. Type: Inpatient Tape: ? Referring: LAHEYMICHAELJ Reading: Tello Mejia ([id number]) Production Gear Cutter: Eve Lolita Diagnosis: *ST elevation (STEMI) myocardial [...] Vmax ?0.58 ? m/sec ? MV deceleration maza659.05 ? m sec ? MV A-wave Vmax [...] ? Mid-Inferior ?Akinetic ? Mid-Inferoseptal ?Normal ? Hudgins-Septal ? Normal ? Hudgins-Anterior ? Normal ? Hudgins-Lateral ?Normal ? Hudgins-Inferior ? Hypokinetic ? Hudgins-Tip ?Normal ? This report has been electronically sign ed by: _ Tello Mejia MD ? 11/30/2019 12: 45:27 Images reviewed and interpretation [facility] Cardiac Ultrasound Laboratory Procedure Note Tello Mejia MD - 11/30/2019Formatti ng of this note might be different from the original. Procedure: Transthoracic Echocardiogram Patient: RITA ACOSTA(Age): [birth year](74y) Med Rec#: [id number] Sex: M Site Loc: [facility] Ht / Wt: 178(cm)/64(kg) Pt. Loc: CCU BSA: 1.8 Study Date: 11/30/2019 Pt. Type: Inpatie nt Tape: Referring: GILMER Reading: Tello Mejia ([id number]) Production Gear Cutter: Eve Lolita Diagnosis: *ST elevation (STEMI) myocardial [...] MV E-wave Vmax 0.58 m/sec MV deceleration ltlw336.05 msec MV A-wave Vmax 0.74 m/sec MV [...] Hypokinetic Mid-Posterolateral Hypokinetic Mid-Inferior Akinetic Mid-Inferoseptal Normal Hudgins-Septal Normal Hudgins-Anterior Normal Hudgins-Lateral Normal Hudgins-Inferior Hypokinetic Hudgins-Tip Normal This report has been electronically sign ed by: _ Tello Mejia MD 11/30/2019 12:45:27 Images reviewed and interpretation [facility] Cardiac Ultrasound Laboratory Gretchen Yoon [...] For questions regarding this report, please contact [facility] number below. ? Electronically signed by: Angel Luis Barboza MD, [facility] ([phone]), at 11/30/2019 12:04 PM Narrative 11/30/2019 12:04 [...] athologist Signature Magnesium 0.88 0.69 - 1.[address]/L [facility] LAB[facility] Specimen Anatomical Collection Method Collection Time Receive d Time (Source) Location / / Volume Laterality Blood specimen Venous Draw / 11/30/2019 8:30 AM 2019 8:37 (specimen) Unknown EDT AM EDT Resulting Agency Comment Spec In Lab Rossy Winn MD CHEMISTRY ORDERABLES Performing Organization Address City/State/ZIP [place] [address] (ABNORMAL) CK (11/30/2019 8:30 AM EDT) athologist Signature CK, Total 1,645 (H) 0 - 200 [facility] unit/L [facility] LABORATORY Specimen Anatomical Collection Method Collection Time Receive d Time (Source) Location / / Volume Laterality Blood specimen 11/30/2019 8:30 AM 020 8:32 (specimen) EDT AM EDT Resulting Agency Comment Spec In Lab Gretchen Yoon MD CHEMISTRY ORDERABLES Performing Organization Address City/[facility]/ZIP [place] [address] (ABNORMAL) Troponin (11/30/2019 8:30 AM EDT) P athologist Signature Troponin-T 8.04 (H) 0.00 - MELINA MONAE 0.00 ng/mL [facility] LABORATORY Comment: result rechecked-rancho The 99th percentile for Troponin T is le ss than 0.01 ng/mL, any detectable cTnT concentration using this assay should be considered elevated. According to the third universal definit ion of myocardial infarction the following criteria with a clinical prese ntation consistent with acute myocardial ischemia meets the diagnosis for a myocardial infarction (NH). Detection of a rise and/or fall of [...] additional sample may be indicated. Reference: Third [place] Definition of Myocardial Infarction. Journal of the [employer] 2012;60:1581-98 Specimen Anatomical Collection Method Collection Time Receive d Time (Source) Location / / Volume Laterality Blood specimen 11/30/2019 8:30 AM 020 8:32 (specimen) EDT AM EDT Resulting Agency Comment Spec In Lab Gretchen Yoon MD CHEMISTRY ORDERABLES Performing Organization Address City/State/ZIP Code Phon e Number [place] [address] EKG 12 Lead (11/30/2019 7:57 AM EDT) Component Value Ref Range Test Analysis Performed Pathologis t Method Time At Signature Ventricular rate 64 BPM MUSE SYSTEM Atrial Rate 64 BPM MUSE SYSTEM P-R Interval 132 ms MUSE SYSTEM QRS Duration 78 ms MUSE SYSTEM Q-T Interval 420 ms MUSE SYSTEM QTC Calculated 433 ms MUSE SYSTEM (Bezet) Calculated P [place] 28 degrees MUSE SYSTEM Calculated R [place] 7 degrees MUSE SYSTEM Calculated T [place] -33 degrees MUSE SYSTEM INTERPRETATION Sinus [...] Signature Glucose 147 (H) 65 - 99 [facility] Fasting mg/dL [facility] LABORATORY Comment: ?Fasting* Glucose Interpretive C riteria [...] of Diabetes Mellitus, Position Statement from the [place] [employer]. ??Diabete s Care, Volume 33, Supplement 1, Jul 2009 BUN 13 10 - 20 mg/dL [facility] LABORATORY Creatinine 0.90 0.80 - 1.50 mg/dL [facility] LABORATORY Sodium 135 135 - 145 [...] Chloride 108 (H) 98 - 107 mmol/L [facility] LABOR[facility] CO2 16 (L) 22 - 31 mmol/L [facility] LABOR[facility] Anion Gap 11 5 - 15 mmol/L [facility] LABORAT[facility] Calcium 7.5 (L) 8.5 - 10.5 mg/dL [facility] LABORATORY Estimated GFR 84 >=60 mL/min/1.73 m?? [facility] LAB[facility] Comment: The eGFR was calculated using the CKD-EP I equation. As with all creatinine based estimates of kidney function, eGFR values calculated with the CKD-EPI equation are not accurate in patients wi th acute kidney failure, extremes of body mass or the acutely ill. [email or web address]nkf eGFR 98 >=60 mL/min/1.73 m?? [facility] LAB[facility] Comment: The eGFR was calculated using the CKD-EP I equation. As with all creatinine based estimates of kidney function, eGFR values calculated with the CKD-EPI equation are not accurate in patients wi th acute kidney failure, extremes of body mass or the acutely ill. [email or web address]Dnkf Specimen Anatomical Collection Method Collection Time Receive d Time (Source) Location / / Volume Laterality Blood specimen 11/30/2019 2:15 AM 020 2:29 (specimen) EDT AM EDT Resulting Agency Comment Spec In Lab Gretchen Yoon MD CHEMISTRY ORDERABLES Performing Organization Address City/State/[place] [address] (ABNORMAL) Hemogram (11/30/2019 2:15 AM EDT) Analysis Performed At Patho logist Time Signature WBC 11.2 (H) 4.0 - 9.5 [facility] x10(3)/[facility] LABORATORY RBC 3.83 (L) 4.58 - [facility] 5.54 [facility] x10(6)/[facility] LABORATORY Hemoglobin 11.4 (L) 13.7 - MELINA DOV 16.5 gm/dL [facility] LABORATORY Hematocrit 35.2 (L) 40.5 - MELINA [place] 48.5 % [facility] LABORATORY MCV 91.9 82.9 - MELINA MARSHDOV 93.1 [facility] LABORATORY MCH 29.8 27.5 - MELINA MARSHDOV 32.1 pg [facility] LABORATORY MCHC 32.4 32.0 - MELINA MARSHDOV 35.7 gm/dL [facility] LABORATORY Platelets 122 (L) 145 - 357 MELINA DOV x10(3)/[facility] LABORATORY RDWSD 49.8 (H) 36.0 - MELINA MARSHDOV 45.0 [facility] LABORATORY RDWCV 14.8 (H) 11.4 - MELINA DOV 13.8 % [facility] LABORATORY MPV 12.1 7.6 - 12.[address] [facility] LABORATORY nRBC % Auto 0.0 % [facility] LABORATORY nRBC Abs Auto 0.000 0.000 - MELINA DOV 0.000 [facility] x10(3)/[facility] LABORATORY Specimen Anatomical Collection Method Collection Time Receive d Time (Source) Location / / Volume Laterality Blood specimen 11/30/2019 2:15 AM 020 2:29 (specimen) EDT AM EDT Resulting Agency Comment Spec In Lab Gretchen Yoon MD HEMATOLOGY ORDERABLES Performing Organization Address City/[facility]/ZIP Code Phon e Number [address] (ABNORMAL) CK (11/30/2019 2:15 AM EDT) athologist Signature CK, Total 1,969 (H) 0 - 200 [facility] DOV unit/L [facility] LABORATORY Specimen Anatomical Collection Method Collection Time Receive d Time (Source) Location / / Volume Laterality Blood specimen 11/30/2019 2:15 AM 020 2:29 (specimen) EDT AM EDT Resulting Agency Comment Spec In Lab Gretchen Yoon MD CHEMISTRY ORDERABLES Performing Organization Address City/State/ZIP Code Phon e Number [address] (ABNORMAL) Troponin (11/30/2019 2:15 AM EDT) athologist Signature Troponin-T 11.73 (H) 0.00 - MELINA MONAE 0.00 ng/mL [facility] LABORATORY Comment: result rechecked-slw The 99th percentile for Troponin T is le ss than 0.01 ng/mL, any detectable cTnT concentration using this assay should be considered elevated. According to the third universal definit ion of myocardial infarction the following criteria with a clinical prese ntation consistent with acute myocardial ischemia meets the diagnosis for a myocardial infarction (NH). Detection of a rise and/or fall of [...] additional sample may be indicated. Reference: Third [place] Definition of Myocardial Infarction. Journal of the [employer] 2012;60:1581-98 result rechecked- The 99th percentile for Troponin T is le ss than 0.01 ng/mL, any detectable cTnT concentration using this assay should be considered elevated. According to the third universal definit ion of myocardial infarction the following criteria with a clinical prese ntation consistent with acute myocardial ischemia meets the diagnosis for a myocardial infarction (NH). Detection of a rise and/or fall of [...] additional sample may be indicated. Reference: Third [place] Definition of Myocardial Infarction. Journal of the [employer] 2012;60:1581-98 Corrected from 11.73 ng/ml [HI] on 11/29 3:11:51 EDT by Debi Hawley Specimen Anatomical Collection Method Collection Time Receive d Time (Source) Location / / Volume Laterality Blood specimen 11/30/2019 2:15 AM 020 2:29 (specimen) EDT AM EDT Resulting Agency Comment Spec In Lab Gretchen Yoon MD CHEMISTRY ORDERABLES Performing Organization Address City/[facility]/ZIP [place] [address] LDL Cholesterol, Direct (11/30/2019 2:15 AM EDT) P athologist Signature LDL Chol 156 mg/dL [facility] LABORATORY Comment: Lowest Risk: <100 mg/dL Lower Risk: 100-129 mg/dL Borderline High Risk: 130-159 mg/dL High Risk: 160-189 mg/dL Very High Risk: >rx=331 mg/dL Specimen Anatomical Collection Method Collection Time Receive d Time (Source) Location / / Volume Laterality Blood specimen 11/30/2019 2:15 AM 020 2:29 (specimen) EDT AM EDT Resulting Agency Comment Spec In Lab Gretchen Yoon MD CHEMISTRY ORDERABLES Performing Organization Address City/[facility]/ZIP [place] [address] (ABNORMAL) Hemoglobin A1c (11/30/2019 [...] Mellitus, Diabetes Care 2013; 36: Suppl. 1, S67-12 Est Avg Gluc See note mg/dL MELINA MONAE [facility] LABORATORY Comment: Estimated Average Glucose not appropriat [...] with hemoglobinopathies. Additional resources are available on [facility] ADA website. Kiko CARBAJAL, Jenn J, Silas R, et al. ??Tr anslating the A1C assay into estimated average glucose values. ??Diabetes Care 2008:31(8):6774-5230. Specimen Anatomical Collection Method Collection Time Receive d Time (Source) Location / / Volume Laterality Blood specimen 11/30/2019 2:15 AM 020 2:29 (specimen) EDT AM EDT Resulting Agency Comment Spec In Lab Gretchen Yoon MD CHEMISTRY ORDERABLES Performing Organization Address City/State/[place] [address] Lipid Panel (Reflex Direct LDL) (11/30/2019 2:15 AM EDT) P athologist Signature Chol, Total 195 mg/dL [facility] LABOR[facility] Comment: Lower Risk: <200 mg/dL Average Risk: 200-239 mg/dL Higher Risk: >hr=023 mg/dL Triglycerides 93 mg/dL [facility] LABORAT[facility] Comment: Average Risk/Lower Risk: <150 mg/dL Borderline High Risk: 150-199 mg/dL High Risk: 200-499 mg/dL Very High Risk: >st=669 mg/dL HDL 32 mg/dL [facility] LABORATORY Comment: Males: ?? Higher Risk: <40 mg/dL Females: ?? HIgher Risk: <50 mg/dL LDL Cholesterol 144 mg/dL [facility] LAB[facility] Comment: Lowest Risk: <100 mg/dL Lower Risk: 100-129 mg/dL Borderline High Risk: 130-159 mg/dL High Risk: 160-189 mg/dL Very High Risk: >po=312 mg/dL Chol/HDL Ratio 6.1 ratio [facility] LABORATORY Lipid Interpretation See Note [facility] LABORATORY Comment: Lipid management should be guided by a p atient? s ASCVD risk, goals and preferences. ACC/AHA Guidelines recommend high intens ity statin if clinical ASCVD or LDL greater than or equal to 190 mg/dL. http://Conferensum[employer]/YUX-DTL-Hczklrejv Adults aged 40-75 with LDL 70-189 mg/dL should have their 10 year ASCVD risk estimated with the ACC/AHA ASCVD risk es timator http://tools.acc.org/GXZTO-Vguk-Sfwcojkd r/ Statin should be discussed if risk [...] Organization Address City/State/ZIP Code Phon e Number [address] (ABNORMAL) CK (11/29/2019 6:35 PM EDT) athologist Signature CK, Total 2,780 (H) 0 - 200 [facility] unit/L [facility] LABORATORY Specimen Anatomical Collection Method Collection Time Receive d Time (Source) Location / / Volume Laterality Blood specimen 11/29/2019 6:35 PM 020 6:53 (specimen) EDT PM EDT Resulting Agency Comment Spec In Lab Gretchen Yoon MD CHEMISTRY ORDERABLES Performing Organization Address City/[facility]/ZIP [place] [address] (ABNORMAL) Troponin (11/29/2019 6:35 PM EDT) athologist Signature Troponin-T 17.60 (H) 0.00 - [facility] 0.00 ng/mL [facility] LABORATORY Comment: result rechecked-az The 99th percentile for Troponin T is le ss than 0.01 ng/mL, any detectable cTnT concentration using this assay should be considered elevated. According to the third universal definit ion of myocardial infarction the following criteria with a clinical prese ntation consistent with acute myocardial ischemia meets the diagnosis for a myocardial infarction (NH). Detection of a rise and/or fall of [...] additional sample may be indicated. Reference: Third [place] Definition of Myocardial Infarction. Journal of the [employer] College [employer]iology 2012;60:1581-98 Specimen Anatomical Collection Method Collection Time Receive d Time (Source) Location / / Volume Laterality Blood specimen 11/29/2019 6:35 PM 020 6:53 (specimen) EDT PM EDT Resulting Agency Comment Spec In Lab Gretchen Yoon MD CHEMISTRY ORDERABLES Performing Organization Address City/State/[place] [address] EKG 12 Lead (11/29/2019 3:58 PM EDT) [facility] gist Method Time Signature Ventricular rate 73 BPM MUSE SYSTEM Atrial Rate 73 BPM MUSE SYSTEM P-R Interval 152 ms MUSE SYSTEM QRS Duration 84 ms MUSE SYSTEM Q-T Interval 404 ms MUSE SYSTEM QTC Calculated 445 ms MUSE SYSTEM (Bezet) Calculated P [place] 50 degrees MUSE SYSTEM Calculated R [place] -4 degrees MUSE SYSTEM Calculated T [place] 19 degrees MUSE SYSTEM INTERPRETATION Sinus [...] lung apex is excluded from the imaged [id number]. IMPRESSION: 1. ??New right internal jugular pulmonar [...] ? Electronically signed by: Devin Solis [facility] ([phone]), at 11/29/2019 4:36 PM Impressions 11/29/2019 4:36 [...] ? Electronically signed by: Devin Solis [facility] ([phone]), at 11/29/2019 4:36 PM Narrative 11/29/2019 4:36 [...] lung apex is excluded from the imaged [id number]. Procedure Note Esteafni Harris MD - 11/29/2019Formattin g of this [...] lung apex is excluded from the imaged [id number]. IMPRESSION 1. New right internal jugular pulmonary [...] below. Electronically signed by: Devin Solis [facility] ([phone]), at 11/29/2019 4:36 PM Juventino Concepcion MD IMG DX ORDERABLES (ABNORMAL) Differential, Automated (11/29/2019 2:32 PM EDT) [facility] Method Time Signature Neutrophils % 83.8 % [facility] LABORATORY Neutr Abs (ANC) 12.12 (H) 1.70 - [facility] 6.10 [facility] x10(3)/[facility] LABORATORY Lymphocytes % 9.1 % [facility] LABORATORY Lymphocytes Abs 1.3 0.9 - 3.2 [facility] x10(3)/[facility] LABORATORY Monocytes % 6.2 % [facility] LABORATORY Monocyte Abs 0.9 0.3 - 0.9 [facility] x10(3)/[facility] LABORATORY Eosinophils % 0.0 % [facility] LABORATORY Eosinophils Abs 0.0 0.0 - 0.4 [facility] x10(3)/[facility] LABORATORY Basophils % 0.3 % [facility] LABORATORY Basophils Abs 0.0 0.0 - 0.1 [facility] x10(3)/[facility] LABORATORY Immature Gran % 0.60 % [facility] LABORATORY Comment: Immature granulocytes(IG's)percentage an d [...] City/State/[place] [address] (ABNORMAL) Hemogram (11/29/2019 2:32 PM EDT) Analysis Performed At Patho logist Time Signature WBC 14.5 (H) 4.0 - 9.5 [facility] x10(3)/[facility] LABORATORY RBC 4.53 (L) 4.58 [facility] x10(6)/[facility] LABORATORY Hemoglobin 13.1 (L) 13.7 [facility] 16.5 gm/dL [facility] LABORATORY Hematocrit 40.8 40.5 - [facility] 48.5 % [facility] LABORAT[facility] MCV 90.1 82.9 - [facility] 93.1 [facility] LABORATORY MCH 28.9 27.5 - [facility] DOV 32.1 pg [facility] LABORATORY MCHC 32.1 32.0 - [facility] 35.7 gm/dL [facility] LABORATORY Platelets 184 145 - 357 [facility] x10(3)/[facility] LABORATORY RDWSD 47.8 (H) 36.0 - [facility] 45.0 [facility] LABORATORY RDWCV 14.5 (H) 11.4 - [facility] DOV 13.8 % [facility] LABORATORY MPV 11.9 7.6 - 12.9 [facility] LABORATORY nRBC % Auto 0.0 % [facility] LABORATORY nRBC Abs Auto 0.000 0.000 - [facility] 0.000 [facility] x10(3)/[facility] LABORATORY Specimen Anatomical Collection Method Collection Time Receive d Time (Source) Location / / Volume Laterality Blood specimen 11/29/2019 2:32 PM 020 2:55 (specimen) EDT PM EDT Resulting Agency Comment Spec In Lab Darrell Glasgow MD HEMATOLOGY ORDERABLES Performing Organization Address City/[facility]/ZIP Code Phon e Number [address] (ABNORMAL) CK (11/29/2019 2:32 PM EDT) athologist Signature CK, Total 3,282 (H) 0 - 200 [facility] unit/[facility] LABORATORY Specimen Anatomical Collection Method Collection Time Receive d Time (Source) Location / / Volume Laterality Blood specimen 11/29/2019 2:32 PM 020 2:32 (specimen) EDT PM EDT Resulting Agency Comment Spec In Lab Gretchen Yoon MD CHEMISTRY ORDERABLES Performing Organization Address City/[facility]/ZIP [place] [address] (ABNORMAL) Troponin (11/29/2019 2:32 PM EDT) athologist Signature Troponin-T 20.33 (H) 0.00 - [facility] 0.00 ng/mL [facility] LABORATORY Comment: The 99th percentile for Troponin T is le ss than 0.01 ng/mL, any detectable cTnT concentration using this assay should be considered elevated. According to the third universal definit ion of myocardial infarction the following criteria with a clinical prese ntation consistent with acute myocardial ischemia meets the diagnosis for a myocardial infarction (NH). Detection of a rise and/or fall of [...] additional sample may be indicated. Reference: Third [place] Definition of Myocardial Infarction. Journal of the [employer] 2012;60:1581-98 Specimen Anatomical Collection Method Collection Time Receive d Time (Source) Location / / Volume Laterality Blood specimen 11/29/2019 2:32 PM 020 2:32 (specimen) EDT PM EDT Resulting Agency Comment Spec In Lab Gretchen Yoon MD CHEMISTRY ORDERABLES Performing Organization Address City/[facility] [place] [address] (ABNORMAL) APTT (11/29/2019 2:32 PM EDT) athologist Signature PTT 114 25 - 37 [facility] (Critical) [facility] LABORATORY Comment: Critical [...] Yoon MD HEMATOLOGY ORDERABLES Performing Organization Address City/[facility] [place] [address] (ABNORMAL) Prothrombin Time (11/29/2019 2:32 PM EDT) P athologist Signature PT 13.5 (H) 9.4 - 12.5 [facility] LABORATORY INR 1.2 [facility] LABORATORY Comment: An INR <2.0 indicates [...] Yoon MD HEMATOLOGY ORDERABLES Performing Organization Address City/[facility]/ZIP [place] [address] (ABNORMAL) Hepatic Function Panel (11/29/2019 2:32 PM EDT) P athologist Signature Total Protein 6.3 6.1 - 8.0 [facility] DOV gm/dL [facility] LABORATORY Albumin 3.6 3.2 - 5.2 [facility] DOV gm/dL [facility] LABOR[facility] AST 257 (H) 0 - 39 [facility] DOV unit/L [facility] LAB[facility] ALT 50 0 - 55 [facility] DOV unit/L [facility] LABOR[facility]ORY Alk Phos 84 40 - 130 [facility] DOV unit/L [facility] LABORATORY Total 0.3 0.2 - 1.3 [facility] Bilirubin mg/dL [facility] LABORATORY Bili, Direct 0.1 0.0 - 0.3 [facility] DOV mg/dL [facility] LABORATORY Specimen Anatomical Collection Method Collection Time Receive d Time (Source) Location / / Volume Laterality Blood specimen 11/29/2019 2:32 PM 020 2:32 (specimen) EDT PM EDT Resulting Agency Comment Spec In Lab Gretchen Yoon MD CHEMISTRY ORDERABLES Performing Organization Address City/[facility]/ZIP [place] [address] (ABNORMAL) pro-Brain Natriuretic Peptide (11/29/2019 2:32 PM EDT) P athologist Signature ProBNP 272 (H) <=125 pg/mL [facility] LABORATORY Specimen Anatomical Collection Method Collection Time Receive d Time (Source) Location / / Volume Laterality Blood specimen 11/29/2019 2:32 PM 020 2:32 (specimen) EDT PM EDT Resulting Agency Comment Spec In Lab Gretchen Yoon MD CHEMISTRY ORDERABLES Performing Organization Address City/[facility]/ZIP Code Phon e Number [address] Magnesium (11/29/2019 2:32 PM EDT) athologist Signature Magnesium 0.76 0.69 - 1.07 [facility] mmol/L [facility] LABORATORY Specimen Anatomical Collection Method Collection Time Receive d Time (Source) Location / / Volume Laterality Blood specimen 11/29/2019 2:32 PM 020 2:32 (specimen) EDT PM EDT Resulting Agency Comment Spec In Lab Gretchen Yoon MD CHEMISTRY ORDERABLES Performing Organization Address City/[facility] Phon e Number [address] (ABNORMAL) Basic Metabolic Panel (non-fasting) (11/29/2019 2:32 PM EDT) athologist Signature Glucose Lvl 149 65 - 199 [facility] mg/dL [facility] LABORATORY Comment: Diabetes: >=200 mg/dL plus symp toms BUN 16 10 - 20 mg/dL [facility] LABORATORY Creatinine 0.94 0.80 - 1.50 mg/dL [facility] LABORATORY Sodium 135 135 - 145 [...] estions. Chloride 105 98 - 107 mmol/L [facility] LABORATORY CO2 15 (L) 22 - 31 mmol/L [facility] LABORATORY Anion Gap 15 5 - 15 mmol/L [facility] LABOR[facility]ORY Calcium 8.0 (L) 8.5 - 10.5 mg/dL [facility] LABORATORY Estimated GFR 80 >=60 mL/min/1.73 m?? [facility] LABOR[facility]ORY Comment: The eGFR was calculated using the CKD-EP I equation. As with all creatinine based estimates of kidney function, eGFR values calculated with the CKD-EPI equation are not accurate in patients wi th acute kidney failure, extremes of body mass or the acutely ill. http://[employer]/[facility] eGFR 93 >=60 mL/min/1.73 m?? [facility] LABORATORY Comment: The eGFR was calculated using the CKD-EP I equation. As with all creatinine based estimates of kidney function, eGFR values calculated with the CKD-EPI equation are not accurate in patients wi th acute kidney failure, extremes of body mass or the acutely ill. http://[employer]/[facility] STR[facility]Dnkf Specimen Anatomical Collection Method Collection Time Receive d Time (Source) Location / / Volume Laterality Blood specimen 11/29/2019 2:32 PM 020 2:32 (specimen) EDT PM EDT Resulting Agency Comment Spec In Lab Gretchen Yoon MD CHEMISTRY ORDERABLES Performing Organization Address City/State/[place] [address] EKG 12 Lead (11/29/2019 11:38 AM EDT) [facility] gist Method Time Signature Ventricular rate 60 BPM MUSE SYSTEM Atrial Rate 60 BPM MUSE SYSTEM P-R Interval 140 ms MUSE SYSTEM QRS Duration 86 ms MUSE SYSTEM Q-T Interval 474 ms MUSE SYSTEM QTC Calculated 474 ms MUSE SYSTEM (Bezet) Calculated P [place] 48 degrees MUSE SYSTEM Calculated R [place] 14 degrees MUSE SYSTEM Calculated T [place] 58 degrees MUSE SYSTEM INTERPRETATION Normal [...] Volume Narrative 11/30/2019 1:09 PM EDT ?[facility] ? Cardiac Cathete rization/Intervention Report ? Patient Name: Angel Luis Salinas. ? Procedure Date: 11/29/2019 ? A #: [id number] ? Primary Physician: Gretchen Yoon ? Case #: [id number] ? File Name: [id number] ? Catheterization Order Number: [id number] ? [facility] ? Final Report [place], [place] ? Patient Name: ? Angel Luis Salinas ? ID#: ?[id number] ? : ?1945 ? Procedure Date: ? [...] procedure was Emergent. The indication for ?the clinical lab specialist visit is ACS less than or equal [...] dose administered prior to arrival in the clinical lab specialist. ?Recommended anti-platelet/anti- thrombotic regimen: ?Continue aspirin 81 mg daily fo r indefinitely. ?Continue clopidogrel 75 mg marco a y for 12 months then stop. ?These recommendations are made at the time of the intervention. Patient ?and provider preferences or a c hanging clinical situation may require ?modification of this regimen. C onsult [facility] Interventional Cardiology for ?questions. ? Conclusions: ?* [...] might be different from the original. [facility] Cardiac Catheterization/Intervention Re port Patient Name: Angel Luis Salinas Procedure Date: 11/29/2019 A #: [id number] Primary Physician: Gretchen Yoon Case #: [id number] File Name: [id number] Catheterization Order Number: [id number] [facility] Final Report [place], [place] Patient Name: Angel Luis Salinas ID#: [id number] : 1945 Procedure Date: November 29, [...] as ASA Class IV. The [facility] clinical frailty scale is 4: Vulnerable. Diagnostic Tests: Electrocardiography: EKG was assessed by ECG. EKG was Abnorm al. EKG showed ST Deviation >= 0.5 mm. Medications Prior to Procedure: Aspirin. Indications for Diagnostic Cath: The priority of the diagnostic procedur e was Emergent. The indication for the clinical lab specialist visit is ACS less than or equal [...] this intervention was 10%. The final TI [place] flow was 2. Distal 90% Thrombectomy and [...] this intervention was 10%. The final TI [place] flow was 2. Vascular Access: Vascular Access [...] administered prior t o arrival in the clinical lab specialist. Recommended anti-platelet/anti-thrombot ic regimen: Continue aspirin 81 mg daily for indefi nitely. Continue clopidogrel 75 mg daily for 12 months then stop. These recommendations are made at the t loyda of the intervention. Patient and provider preferences or a changing clinical situation may require modification of this regimen. Consult [facility] Interventional Cardiology for questions. Conclusions: * Two [...] Blood Gas Historical (11/29/2019 9:17 AM EDT) [facility] gist Method Time Signature POC pH 7.33 (L) 7.35 - [facility] 7.45 [facility] LABORATORY POC PCO2 33 (L) 35 - 45 [facility] mmHg [facility] LABORATORY POC PO2 56 (L) 85 - 104 [facility] LABORATORY POC Base Excess -8.0 (L) -3.0 - 3.0 [facility] K mmol/L [facility] LABORATORY POC HCO3 17.4 (L) 20.0 - [facility] 26.0 [facility] POC Sodium 137 135 - 145 [facility] mmol/L [facility] POC Potassium 3.6 3.5 - 5.0 [facility] mmol/L [facility] POC Ionized Ca 1.15 1.15 - [facility] 1.33 [facility] POC Hematocrit 37.0 (L) 40.0 - [facility] 51.0 % [facility] POC Calc Hgb 12.6 (L) 13.7 - [facility] 17.5 gm/dL [facility] Comment: The calculation of hemoglobin f [...] City/State/[place] [address] EKG 12 Lead (11/29/2019 9:01 AM EDT) Component Value Ref Range Test Analysis Performed Pathologis t Method Time At Signature Ventricular rate 80 BPM MUSE SYSTEM Atrial Rate 79 BPM MUSE SYSTEM QRS Duration 94 ms MUSE SYSTEM Q-T Interval 436 ms MUSE SYSTEM QTC Calculated 502 ms MUSE SYSTEM (Bezet) Calculated R [place] 54 degrees MUSE SYSTEM Calculated T [place] 80 degrees MUSE SYSTEM INTERPRETATION Normal sinus rhythm MUSE SYSTEM Inferior infarct , possibly acute Prolonged QT * ACUTE [place] ?? Consider right ventricular involvement in acute [...] RN) 150 mg, Intravenous, ONCE, 1 dose, [place] at 1315, Warning Vesicant/Irritant Medication , Routine [...] ONCE, 1 dose, 12/06/19 at 0515, Ad value engineer over 120 Minutes magnesium sulfate 2 [...]
Routine documented in this encounter Care Teams Change Over Relationship Specialty Start Date End Date France Lam MD PCP - General 05/02/13 02/04/20 [address] [place] [address] documented as of this encounter
--- OUTSIDE RECORDS SUMMARY | 2022-05-30 11:04 | XMS_ITS | Encounter Summary ---
:1945 [place] [address] Care Team Providers Name Role Phone France Lam MD Primary Care Provider Encounter Details Date Type Department Care Team Description 11/29/2019 Telephone Cardiovascular [facility] Silvio piedra MD [facility] Devin coh[place] [address] [place] [address] [phone] (Wo rk) Social History Tobacco Use Types [...] 50s EKG: Inferior STEMI Silvio Real MD Tree Farmer PGY-4 11/29/2019 documented in this encounter Plan of Treatment Upcoming Encounters Date Type Specialty Care Team Description 06/30/2022 Office Visit Endocrinology Echt, Alan Beatty MD [facility] ENDOCRINOLOGY [place], [place] [address] (Wo rk) documented as of this encounter Visit Diagnoses Not on filedocumented in this encounter Care Teams Molecular Modeler Relationship Specialty Start Date End Date France Lam MD PCP - General 05/02/13 02/04/20 [address] [place] [address] documented as of this encounter
[2022-05-30 11:08] VITALS: BP 122/60; PULSE 51
== END 2022-05-31 23:59 | disposition home or self-care (01) ==
LOC: CR 10:57
PROVIDERS: PCP Family Medicine; Visit Provider Internal Medicine Cardiovascular Disease
DX: R69 Illness, unspecified (principal)

== ENCOUNTER 2022-06-12 14:01 | Outpatient (REF) | payer MEDICARE, OTHER, SELFPAY ==
[2022-06-12 15:33] LABS: FREE T4 0.72 ng/dL (0.76-1.46); TSH 32.26 uIU/mL (0.36-3.74)
== END 2022-06-12 14:02 | disposition home or self-care (01) ==
LOC: NCHCN 14:01
PROVIDERS: PCP Family Medicine; Visit Provider Family Medicine
DX: E05.90 Thyrotoxicosis, unspecified without thyrotoxic crisis or storm (principal)
CPT/HCPCS: 84439; 84443

== ENCOUNTER 2022-06-29 10:58 | Outpatient (RCR) | payer SELFPAY ==
[2022-06-01 00:15] VITALS: BP 122/60; PULSE 51
[2022-06-01 11:02] VITALS: BP 120/60; PULSE 48
--- OUTSIDE RECORDS SUMMARY | 2022-06-01 11:03 | XMS_ITS | Encounter Summary ---
:1945 [place] [address] Care Team Providers Name Role Phone France Lam MD Primary Care Provider Encounter Details Date Type Department Care Team Description 12/29/2019 Ancillary Procedure Radiology Library at Ivette Salas [facility] Formerly [facility] [place] [address] [place] [address] [phone] (Wo rk) Social History Tobacco Use Types Packs/Day Years Used Date Smoking Tobacco: Every Day Cigarettes 0.5 Cigars Sex Assigned at Date Recorded Not on file documented as of this encounter Plan of Treatment Upcoming Encounters Date Type Specialty Care Team Description 06/30/2022 Office Visit Endocrinology EchAlan coley MD [facility] ENDOCRINOLOGY [place], [place] [address] (Wo rk) documented as of [...] se is for storage only. Alfreda Salas SUPERVISOR QUALITY CONTROL [facility] FILM LIBRARY ORDERABLES Performing Organization Address City/State/ZIP Code Phon e Number [facility] [place], [place] documented in this encounter Visit Diagnoses Not on filedocumented in this encounter Care Teams Sustainability Project Manager Relationship Specialty Start Date End Date France Lam MD PCP - General 05/02/13 02/04/20 [address] [place] [address] documented as of this encounter
--- OUTSIDE RECORDS SUMMARY | 2022-06-01 11:03 | XMS_ITS | Encounter Summary ---
:1945 Author Organization [facility] [place] [address] Care Team Providers Name Role Phone Jovany Lott MD Primary Care Provider Encounter Details Date Type Department Care Team Description 10/08/2020 Telephone Cardiology at [facility] Faustino Garduno MD [facility] [place] [address] [place] [address] [phone] (Wo rk) Social History Tobacco Use Types [...] with Dr. Chou, his provider via the [place] (see my prior clinic note). His case was reviewed by our Watchman (left atrial appendage closure team). He has anatomy that would be conducive to closure, should he wish to pursue this for stroke prevention and ability to be off anticoagulation fpc. Left message for callback to our Structural Program (contact Willow Callejas APRN). If he is interested, I would be happy to offerscheduling for him. Faustino Garduno MD Pager [phone] documented in this encounter Plan of Treatment Upcoming Encounters Date Type Specialty Care Team Description 06/30/2022 Office Visit Endocrinology Alan Terrell MD [facility] [place]CR[place]OLOG[place], [place] [address] (Wo rk) documented as of this encounter Visit Diagnoses Not on filedocumented in this encounter Care Teams Donor Recruiter Relationship Specialty Start Date End Date Jovany Lott MD PCP - General Family Medicine 02/05/20 [address] [place] [address] documented as of this encounter
--- OUTSIDE RECORDS SUMMARY | 2022-06-01 11:03 | XMS_ITS | Encounter Summary ---
:1945 Author Organization [facility] Address [address] [place] [address] Care Team Providers Name Role Phone Jennifer Gomez SILVER STEWARD Primary Care Provider Encounter Details Date Type Department Care Team Description 02/07/2020 Lab Requisition [facility] Outr Resulting Lab, Pathology & Laboratory Provider [facility] [address] [place] [address] Social History Tobacco Use Types [...] TEST (02/07/2020 7:59 EDT) Analysis Performed At [facility] Time Signature COVID-19 NEGATIVE Negative 02/08/2020 [...] Phon e Number [facility] [place] COVID-19 TESTING (02/07/2020 7:59 EDT) Analysis Performed At [facility] Time Signature COVID-19 NEGATIVE Negative 02/08/2020 [...] Administration's Emergency Use Authorization. Performing Lab [employer] 02/08/2020 17:4 7 EDT [facility] Specimen Anatomical Collection Method Collection Time Receive d Time (Source) Location / / Volume Laterality Swab 02/07/2020 7:59 02/07/2020 EDT 23:07 EDT Provider Outr Resulting Lab MICROBIOLOGY - GENERAL ORD ERABLES Performing Organization Address City/State/ZIP Code Phon e Number [facility] [address] [place] [address] SERVICES [facility] [place], [place] documented in this encounter Visit Diagnoses Not on filedocumented in this encounter Care Teams Sewer Pipe Layer Helper Relationship Specialty Start Date End Date Jennifer Gomez NP PCP - General 05/10/15 [facility] [address] [place], [place] [id number] documented as of this encounter
--- OUTSIDE RECORDS SUMMARY | 2022-06-01 11:03 | XMS_ITS | Encounter Summary ---
:1945 Author Organization [facility] [place] [address] Care Team Providers Name Role Phone France Lam MD Primary Care Provider Encounter Details Date Type Department Care Team Description 01/16/2020 Telephone Vascular Surgery at [facility] Ryan Tran, [place] [address] Social History Tobacco Use Types Packs/Day [...] fidelina. Ryan Tran, MSN, RN-, NCTTP Tobacco Oil Deliverer [facility] Pager #[phone] documented in this encounter Plan of Treatment Upcoming Encounters Date Type Specialty Care Team Description 06/30/2022 Office Visit Endocrinology EchtAlan MD [facility] ER [address] [place], [place] [address] (Wo rk) documented as of this encounter Visit Diagnoses Not on filedocumented in this encounter Care Teams Business Enterprise Officer Relationship Specialty Start Date End Date France Lam MD PCP - General 05/02/13 02/04/20 [address] [place] [address] documented as of this encounter
--- OUTSIDE RECORDS SUMMARY | 2022-06-01 11:03 | XMS_ITS | Encounter Summary ---
:1945 Author Organization [facility] Address [facility] [place] [address] Care Team Providers Name Role Phone France Lam MD Primary Care Provider Encounter Details Date Type Department Care Team Description 12/26/2019 TH Visit Cardiology at [facility] Merlin Sanchez V, Claudication from peripheral vascular disease, left ; (TeleHealth) [facility] Hyperlipidemia, unspecified hyperlipidem ia type; Drive [facility] Acute ST elevation myocardia l infarction (STEMI) of inferior wall; [place], [place] CENTER Acute systolic CHF (congestive heart reid lure), NYHA class 3, MILVIA/AHA stage C [address] [address] [phone] [place] [address] Social History Tobacco Use Types Packs/Day Years [...] best is to differ this conversation until fci OAC strategy has been set. Specifically, if this is being treated as a provoked dvt/pe, then would re-evaluate to coordinated with OAC discontinuation. I discussed the above findings with the patient and his both of whom appear to understand and is in agreement with the plan going forward. Merlin Sanchez M.D., F.A.C.C. trash collector Pager [phone] >50% of the 15 minute evaluation was spent in direct conversation/counselling documented in this encounter Plan of Treatment Upcoming Encounters Date Type Specialty Care Team Description 06/30/2022 Office Visit Endocrinology Alan Terrell MD [facility] ENDOCRINOLOGY [place], [place] [address] (Wo rk) documented as of this encounter Visit Diagnoses Diagnosis Claudication from peripheral vascular di sease, left Peripheral vascular disease, unspecified Hyperlipidemia, unspecified hyperlipidem ia type Acute ST elevation myocardial infarction (STEMI) of inferior wall Acute systolic CHF (congestive heart reid lure), NYHA class 3, MILVIA/AHA stage C Acute systolic heart failure documented in this encounter Care Teams Director Of Dietary Relationship Specialty Start Date End Date France Lam MD PCP - General 05/02/13 02/04/20 [address] [place] [address] documented as of this encounter
--- OUTSIDE RECORDS SUMMARY | 2022-06-01 11:03 | XMS_ITS | Encounter Summary ---
:1945 Author Organization [facility] [place] [address] Care Team Providers Name Role Phone France Lam MD Primary Care Provider Encounter Details Date Type Department Care Team Description 12/23/2019 TH Visit Neurosurgery at [facility] Alfreda Salas Intracranial (TeleHealth) [facility] C, NUTRITION FACULTY [place] [address] [phone] [place] [address] Social History Tobacco Use Types Packs/Day Years Used Date Smoking Tobacco: Every Day Cigarettes 0.5 Cigars Sex Assigned at Date Recorded Not on file documented as of this encounter Progress Notes Alfreda Salas, NUTRITION FACULTY MEMBER - 12/23/2019 1:30 PM EDT Images from [...] [address] up [address] at [facility], showing slight decrease in size and [...] 3-4 weeks which may be done at [facility] with follow up TOV [facility]. Head CT 12/18/19 Assessment and Plan [...] Office Visit Endocrinology Alan Terrell MD [facility] ENDOCRINOLOGY [place], [place] [address] (Wo rk) documented as of this encounter Visit Diagnoses Diagnosis Intracranial hemorrhage Unspecified intracranial hemorrhage documented in this encounter Care Teams Motor Checker Relationship Specialty Start Date End Date France Lam MD PCP - General 05/02/13 02/04/20 [address] [place] [address] documented as of this encounter
--- OUTSIDE RECORDS SUMMARY | 2022-06-01 11:03 | XMS_ITS | Encounter Summary ---
:1945 Author Organization [place] [address] Care Team Providers Name Role Phone Jovany Lott MD Primary Care Provider Reason for Visit Consultation (Routine) - Closed Specialty Diagnoses / Procedures Referred By Contact Refer red To Contact Cardiology Diagnoses ST elevation (STEMI) myocardial infarction of unspecified site Hyperlipidemia, unspecified Dawit Mejia MD [place] [address] [place] [address] [address] [place], [place] CARDIOLOGY D EPT [address] [place] [address] Fax: Referral ID Status Reason Start Date Expiration Date Visits V isits Requested Authorized [id number] Closed Consult, Test 02/10/2020 02/09/2021 [facility] PCP Updated and/or Approved Encounter Details Date Type Department Care Team Description 03/12/2020 TH Visit Cardiology at [facility] Melina Payan Fredrickson type IIa hyperli poproteinemia; (TeleHealth) [facility] Hyperglycemia; [facility] Elevated TSH; [place], [place] CENTER Hypothyroidism, acquired [id number] CARDIOLOGY DEPT [phone] [place], [place] [address] Social History Tobacco Use Types Packs/Day Years Used Date Smoking Tobacco: Former Cigarettes 0.5 Quit : 11/29/2019 Cigars Smokeless Tobacco: Former Comments: Quit chew tobacco years and y ears ago Sex Assigned at Date Recorded Not on file documented as of this encounter Progress Notes Melina Payan MD - 03/12/2020 1:00 PM EDT [facility] Lipid Clinic--Initial Consultation [...] Social History: 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 [...] medications for this visit. Allergies Penicillins and Tvsdyyz-tgk-yps reductase inhibitors Physical Exam not performed telehealth Assessment Jovany is a very high risk 75-year-old man who suffered a STEMI complicated by A. fib, cardiogenic shock, and a CVA. He has multiple cardiovascular risk factors including peripheral artery disease, hyperlipidemia (elevated LDL, depressed HDL), a 24-jkme-sauv history of smoking, and prediabetes. Jovany quit [...] Endocrinology Alan Terrell MD [facility] ENDOCRINOLOGY [place], [place] [address] (Wo rk) documented as of this encounter Visit Diagnoses Diagnosis Tiny type IIa hyperlipoproteinemi a Pure hypercholesterolemia Hyperglycemia Other abnormal glucose Elevated TSH Other abnormal blood chemistry Hypothyroidism, acquired Unspecified hypothyroidism documented in this encounter Care Teams Shop Helper Relationship Specialty Start Date End Date Jovany Lott MD PCP - General Family Medicine 02/05/20 [address] [place] [address] documented as of this encounter
--- OUTSIDE RECORDS SUMMARY | 2022-06-01 11:03 | XMS_ITS | Encounter Summary ---
:1945 Author Organization [facility] [place] [address] Care Team Providers Name Role Phone France Lam MD Primary Care Provider Encounter Details Date Type Department Care Team Description 12/24/2019 Telephone [facility]surgery [place] [facility] [place] [address] Social History Tobacco Use Types Packs/Day [...] CT on 12/28. Faxed push request to [facility] Telephone Encounter - Elza Bradshaw - 12/25/2019 11:50 AM EDT Called [place] [facility] volunteer patient representative I spoke with patient has plan N and does not require authorization. Order faxed with demos to [facility]. Postponing to allow time for scheduling. Telephone Encounter - Cathy Jay - 12/24/2019 11:42 AM EDT Patient needs f/u appointment(s): With [facility] on/around 01/13 3 weeks TOV, s/p Intracranial hemorrhage, [facility] prior 1. [place] [facility] [place]? ~~~~~~~~~~~~~~~~~~~~~~~~~~~~~~~~~~~~~~~~~~~~~~~~~~~~~~ Alfreda Salas APRN Sent: destini December 23, 2019 ??7:39 PM To: P [facility] Neurosurgery [place] Jovany Hi ( ) : 1945> ?? Follow-up and Dispositions Check-out Note: Follow up head CT and TOV in 3 weeks unless vision worsens or he develops new symptoms in meantime ([facility] for CT) documented in this encounter Plan of Treatment Upcoming Encounters Date Type Specialty Care Team Description 06/30/2022 Office Visit Endocrinology Alan Terrell MD [facility] ENDOCRINOLOGY [place], [place] [address] (Wo rk) documented as of this encounter Visit Diagnoses Not on filedocumented in this encounter Care Teams Cafe Attendant Relationship Specialty Start Date End Date France Lam MD PCP - General 05/02/13 02/04/20 [address] [place] [address] documented as of this encounter
--- OUTSIDE RECORDS SUMMARY | 2022-06-01 11:03 | XMS_ITS | Encounter Summary ---
:1945 Author Organization [facility] [place] [address] Care Team Providers Name Role Phone Jovany Lott MD Primary Care Provider Encounter Details Date Type Department Care Team Description 10/12/2020 Notes Only Cardiology at [facility] Willow Callejas RN [facility] [place] [address] Social History Tobacco Use Types Packs/Day [...] 06/30/2022 Office Visit Endocrinology Alan Terrell MD [facility] [address] [place] [place], [place] [address] (Wo rk) documented as of this encounter Visit Diagnoses Not on filedocumented in this encounter Care Teams Carpet Installation Specialist Relationship Specialty Start Date End Date Jovany Lott MD PCP - General Family Medicine 02/05/20 [address] [place] [address] documented as of this encounter
--- OUTSIDE RECORDS SUMMARY | 2022-06-01 11:03 | XMS_ITS | Encounter Summary ---
:1945 Author Organization [facility] Address [address] [place] [address] Care Team Providers Name Role Phone Jennifer Gomez CIRCULATION MANAGER Primary Care Provider Encounter Details Date Type Department Care Team Description 02/15/2022 Lab Requisition [facility] Outr Resulting Lab, Pathology & Laboratory Provider [facility] [address] [id number] Social History Tobacco Use Types Packs/Day Years [...] Free 9.3 (H) 2.8 - 5.3 02/15/2022 [facility] MEDICAL pg/mL 21:51 EDT CENTER LABORATORY SERVICES Specimen Anatomical Collection Method Collection Time Receive d Time (Source) Location / / Volume Laterality Blood VENOUS BLOOD / 02/15/2022 10:37 Unknown EDT 21:20 EDT Provider Outr Resulting Lab CHEMISTRY & BLOOD GAS CHLOE Duncan Organization Address City/State/ZIP Code Phon e Number [facility] [address] [place] [address] SERVICES documented in this encounter Visit Diagnoses Not on filedocumented in this encounter Care Teams Hoof And Shoe Inspector Relationship Specialty Start Date End Date Jennifer Gomez, CIRCULATION MANAGER PCP - General 05/10/15 [facility] [address] [place] [address] documented as of this encounter
--- OUTSIDE RECORDS SUMMARY | 2022-06-01 11:03 | XMS_ITS | Encounter Summary ---
:1945 Author Organization [facility] [place] [address] Care Team Providers Name Role Phone Jovany Lott MD Primary Care Provider Reason for Visit Reason Onset Date Comments Follow-up 06/15/2020 Tobacco Treatment Encounter Details Date Type Department Care Team Description 06/15/2020 Telephone Vascular Surgery at [facility] low-up (Tobacco [facility] Sukumar, RN Treatment) [place] [address] Social History Tobacco Use Types Packs/Day [...] updated. Ryan Tran, MSN, RN-BC, NCTTP Tobacco Statement Request Clerk [facility] Pager #[phone] documented in this encounter Plan of Treatment Upcoming Encounters Date Type Specialty Care Team Description 06/30/2022 Office Visit Endocrinology Alan Terrell MD [facility] ENDOCRINOLOGY [place] [address] (Wo rk) documented as of this encounter Visit Diagnoses Not on filedocumented in this encounter Care Teams Motor And Generator Brush Cutter Relationship Specialty Start Date End Date Jovany Lott MD PCP - General Family Medicine 02/05/20 [address] [place] [address] documented as of this encounter
--- OUTSIDE RECORDS SUMMARY | 2022-06-01 11:03 | XMS_ITS | Encounter Summary ---
:1945 Author Organization [facility] [place] [address] Care Team Providers Name Role Phone France Lam MD Primary Care Provider Encounter Details Date Type Department Care Team Description 12/08/2019 Telephone Neurosurgery at [facility] [place] [address] Social History Tobacco Use Types Packs/Day Years Used Date Smoking Tobacco: Every Day Cigarettes 0.5 Cigars Sex Assigned at Date Recorded Not on file documented as of this encounter Miscellaneous Notes Telephone Encounter - Elza Bradshaw - 12/22/2019 6:[address] in [facility] Telephone Encounter - Elza Bradshaw - 12/18/2019 3:43 PM EDT Left message at [facility] requesting they call back to advise if patient has been scheduled for CT. Telephone Encounter - Sarah Boucher - 12/08/2019 3:[address] order to [facility] to schedule, 12/16-12/18 for 12/22 TOV scheduled w/[facility] Telephone Encounter - Sarah Boucher - 12/08/2019 9:50 AM EDT RN, please put in CT order external=Josue Pt's called not able to come to [facility] on 12/[address] requested to have CT locally at [facility] call w/results. documented in this encounter Plan of Treatment Upcoming Encounters Date Type Specialty Care Team Description 06/30/2022 Office Visit Endocrinology GenietAlan MD [facility] ENDOCRINOLOGY [place], [place] [address] (Wo rk) documented as of this encounter Visit Diagnoses Not on filedocumented in this encounter Care Teams Black And White Printer Operator Relationship Specialty Start Date End Date France Lam MD PCP - General 05/02/13 02/04/20 [address] [place] [address] documented as of this encounter
--- OUTSIDE RECORDS SUMMARY | 2022-06-01 11:03 | XMS_ITS | Encounter Summary ---
:1945 Author Organization [facility] Address [address] [place] [address] Care Team Providers Name Role Phone Jennifer Gomez NATIONAL COVERAGE SPECIALIST Primary Care Provider Encounter Details Date Type Department Care Team Description 09/07/2020 Lab Requisition [facility] Outr Resulting Lab, Pathology & Laboratory Provider [facility] [address] [phone] Social History Tobacco Use Types Packs/Day Years [...] e Number [facility] [address] [place] [address] SERVICES COVID-19 TESTING (09/07/2020 9:45 EST) Analysis Performed At Patho logist Time Signature COVID-19 Negative Negative 09/08/2020 [facility] rt-PCR Result 14:27 EST CENTER [...] and its performa nce characteristics determined by [facility]. It has not been cleared or [...] testing. This test is based on the [facility] COVID-19 E mergency Use Authorization (EUA) assay, with minor modification as defined by the FDA Performed on the Traklighto 7 Pro RT-PCR System. Performing Lab [facility] Lab 09/08/2020 14:27 EST [facility] SERVICES Specimen Anatomical Collection Method Collection Time Receive d Time (Source) Location / / Volume Laterality Swab 09/07/2020 9:45 09/07/2020 EST 20:56 EST Provider Outr Resulting Lab MICROBIOLOGY - GENERAL ORD ERABLES Performing Organization Address City/State/ZIP Code Phon e Number [facility] [address] [place] [address] SERVICES documented in this encounter Visit Diagnoses Not on filedocumented in this encounter Care Teams Fiberglass Laminator Relationship Specialty Start Date End Date Jennifer Gomez NP PCP - General 05/10/15 [facility] [address] [place] [address] documented as of this encounter
--- OUTSIDE RECORDS SUMMARY | 2022-06-01 11:03 | XMS_ITS | Encounter Summary ---
:1945 Author Organization [facility] Address [facility] [place] [address] Care Team Providers Name Role Phone France Lam MD Primary Care Provider Reason for Visit Reason Onset Date Comments TeleHealth 01/08/2020 Appt 01/09/20 Encounter Details Date Type Department Care Team Description 01/08/2020 Telephone [place]rology [place] [facility] Efrain Nicole PA TeleHealth (Appt [facility] 12/[address] ) [place] [address] NEUROLOGY [phone] [place], [place] [address] (Wo rk) Social History Tobacco [...] Terrell MD [facility] ENDOCRINOLOGY [place] [address] (Wo rk) documented as of this encounter Visit Diagnoses Not on filedocumented in this encounter Care Teams Medical Affairs Specialist Relationship Specialty Start Date End Date France Lma MD PCP - General 05/02/13 02/04/20 [address] [place] [address] documented as of this encounter
--- OUTSIDE RECORDS SUMMARY | 2022-06-01 11:03 | XMS_ITS | Encounter Summary ---
:1945 Author Organization Address [address] [place] [address] Care Team Providers Name Role Phone Jennifer Gomez COOLER WORKER Primary Care Provider Encounter Details Date Type Department Care Team Description 03/19/2019 Results Only [facility] Angel Luis Lott MD [phone] [address] [place], [place] [phone] (Wo rk) Social History Tobacco Use Types [...] Component Value Ref Test Analysis Performed At [facility] Method Time Signature Pathology SURGICAL PATHOLOGY REPORT [facility] Report: Reports generated via electronic interface contain [facility] data; CENTER however they are lacking the format of the original report. LABORATORY Caution should be taken when reading/interpreting unformat pepper reports. SERVICES Name: ? ANGEL LUIS HI ? Accession #: ? [id number] ? : ? 1945 (Age: 8 3) [...] and entirely submitted in 1. ESTEFANY Brown ([facility]) 03/20/2019 5:33 PM End of Report Specimen Anatomical Collection Method Collection Time Receive d Time (Source) Location / / Volume Laterality 03/19/2019 16:47 03/20/2019 EDT 16:47 EDT Angel Luis Lott MD PATHOLOGY ORDERABLES Performing Organization Address City/State/ZIP Code Phon e Number [facility] [address] [place] [address] SERVICES documented in this encounter Visit Diagnoses Not on filedocumented in this encounter Care Teams High School Mathematics Teacher Relationship Specialty Start Date End Date Jennifer Gomez NP PCP - General 05/10/15 [facility] [address] [place] [address] documented as of this encounter
--- OUTSIDE RECORDS SUMMARY | 2022-06-01 11:03 | XMS_ITS | Clinical Summary ---
:1945 Author Organization [facility] [place] [address] Care Team Providers Name Role Phone Jovany Lott MD Primary Care Provider Allergies Active Allergy Reactions Severity Noted Date Comments Penicillins 05/13/2013 Pt doesn't gely mber reaction Kkvnmvp-Azy-Fsl Reductase 05/13/2013 St iff neck, upset stomach, [...] Office Visit Endocrinology Echt, Alan Beatty MD [facility] DR ENDOCRINOLOGY [place], [place] [address] (Wo rk) Health Maintenance Due [...] It's purpo se is for storage only. Jovayn Lott MD IMG FILM LIBRARY ORDERABLES Performing Organization Address City/State/ZIP Code Phon e Number [place], [place] from Last 3 Months Insurance Payer Benefit Plan / Subscriber ID Effective Dates Phone Addre ss Type Group MEDICARE MEDICARE PART [id number] 2019-Prese [phone] JUAN MD JUST[place] [id number] [place] [id number] 2018-Presen [employer] [place] [id number] Advance Directives Latest Code Status on File [...] capacity to make decision: Yes Care Teams Jail Officer Relationship Specialty Start Date End Date Jovany Lott MD PCP - General Family Medicine 02/05/20 [address] [place] [address]
--- OUTSIDE RECORDS SUMMARY | 2022-06-01 11:03 | XMS_ITS | Encounter Summary ---
:1945 Author Organization [facility] Address [facility] [place] [address] Care Team Providers Name Role Phone France Lam MD Primary Care Provider Encounter Details Date Type Department Care Team Description 12/22/2019 Telephone Cardiology Riki Stevens, [facility] [place] [address] [facility] [phone] GENERAL INTERNAL MEDICINE [place] [address] (Wo rk) Social History Tobacco Use Types [...] Description 06/30/2022 Office Visit Endocrinology EchtAlan MD [facility] ER [address] [place], [place] [address] (Wo rk) documented as of this encounter Visit Diagnoses Not on filedocumented in this encounter Care Teams Refrigerator Car Icer Relationship Specialty Start Date End Date France Lam MD PCP - General 05/02/13 02/04/20 [address] [place] [address] documented as of this encounter
--- OUTSIDE RECORDS SUMMARY | 2022-06-01 11:03 | XMS_ITS | Encounter Summary ---
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 [facility] [address] NEUROLOGY [phone] [place] [address] Social History Tobacco Use Types Packs/Day Years Used Date Smoking Tobacco: Every Day Cigarettes 0.5 Cigars Sex Assigned at Date Recorded Not on file documented as of this encounter Progress Notes Efrain Nicole PA - 01/09/2020 9:00 AM EDT [facility] St[facility] [place] [address] t: [phone] / f: [phone] TELEPHONE ENCOUNTER Date of Appointment: 01/09/2020 I [...] cardiology - had f/u head CT at [facility] which was stable with resolving known [...] -advised vision/eye exam with his local provider ([facility]); consider referral to neuro-ophthalmology here [...] Visit Endocrinology Alan Terrell MD [facility] ER ENDOCRINOLOGY [place], [place] [address] (Wo rk) documented as of this encounter Visit Diagnoses Diagnosis Intracranial hemorrhage Unspecified intracranial hemorrhage Tobacco abuse Tobacco use disorder Cerebrovascular accident (CVA) due to em bolism of right posterior cerebral artery documented in this encounter Care Teams Cooker Operator Relationship Specialty Start Date End Date France Lam MD PCP - General 05/02/13 02/04/20 [address] [place] [address] documented as of this encounter
--- OUTSIDE RECORDS SUMMARY | 2022-06-01 11:03 | XMS_ITS | Continuity of Care Document ---
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 Z23 Encounter for [place] immunizationwith CBO C Provider Comments: Encounter for Immunization Diagnosis: ICD-10-CM Active Diagnosis ST. H90.[address] [facility] hearing loss, CBOC bilateralwith Provider Comments: Asymmetrical sensorineural hearing loss (SNOMED CT [id number]) Diagnosis: ICD-10-CM Active Diagnosis ST. I25.[address] [facility] disease of [place] coronary artery w/o ang pctrswith Provider Comments: Atherosclerotic Heart Disease of [place] Coronary Artery without Angina Pectoris Medications Combined list of outpatient medications from Department of Defense and Veterans Affairs facilities. Medications provided include 1) outpatient medications from the last 15 months, and 2) patient-reported medications. Medication Details Route Status Patient Prescription Prescription Last Ordering Order Source Instructions Expires Number Dispense Provider Date Date AMIODARONE TAKE ONE ORAL ACTIVE 02/14/2023 [id number] JORGE A LOZA 02/15/ CARLOS HCL TABLET 2 N 2021 [place] (PACERONE) BY MOUTH [place] 200MG TAB EVERY [facility] DAY AFTER ONE MONTH OF TWICE DAILY DOSING THROUGH 02/26/22 APIXABAN TAKE ONE ORAL ACTIVE 2023 [id number] WILLIE LOZA 01/20/ WHITE 5MG TAB TABLET 2 N 2021 [place] BY [place]OUTH [place] TWICE A [facility] DAY TO HELP PREVENT BLOOD CLOTS (ANTICOA GULATION CCNRX) APIXABAN TAKE ONE ORAL 12/21/2021 [id number] GIANGR ECO 12/30/ WHITE 5MG TAB TABLET [...] DAY FUROSEMIDE TAKE ONE ORAL ACTIVE 12/17/2022 [id number] JORGE A LOZA 12/21/ WHITE 20MG TAB TABLET 2 N 2021 [place] BY MOUTH [place] EVERY [facility] OTHER DAY TO REMOVE FLUID/CO NTROL BLOOD PRESSURE FUROSEMIDE TAKE ONE ORAL 11/12/2021 [id number] SJ PATTON,M 11/12/ ST. 20MG TAB TABLET 2 ICHAEL 2020 [place] BY MOUTH RY CBOC EVERY OTHER DAY TO REMOVE FLUID/CO NTROL BLOOD PRESSURE LISINOPRIL TAKE ONE ORAL ACTIVE 12/17/2022 [id number] JORGE A LOZA 12/21/ WHITE 5MG TAB TABLET 2 N 2021 [place] BY MOUTH [place] EVERY [facility] DAY TO CONTROL BLOOD PRESSURE LISINOPRIL TAKE ONE ORAL DISCONT 06/08/2022 [id number] JORGE A LOZA 06/15/ WHITE 5MG TAB TABLET INUED 2 N 2020 [place] BY MOUTH [place] EVERY [facility] DAY TO CONTROL BLOOD PRESSURE LISINOPRIL TAKE ONE ORAL 06/03/2021 [id number] STANL EY,M 06/08/ ST. 5MG TAB TABLET 1 ICHAEL 2019 [place] BY MOUTH RY CBOC EVERY DAY TO CONTROL BLOOD PRESSURE METOPROLOL TAKE ONE ORAL ACTIVE 02/14/2023 [id number] JORGE A LOZA 02/15/ WHITE SUCCINATE TABLET 2 N 2021 [place] 25MG TAB,SA BY MOUTH [place] EVERY [facility] DAY FOR BLOOD PRESSURE /HEART METOPROLOL TAKE ONE ORAL DISCONT 02/23/2022 [id number] Mery BLEVINS 02/28/ ST. SUCCINATE TABLET INUED 2 ICHAEL 2020 [place] 25MG TAB,SA BY MOUTH RY CB OC EVERY DAY FOR BLOOD PRESSURE /HEART NITROGLYCER TAKE ONE SUBLIN 02/23/2022 [id number] Stew LUOMery 02/28/ ST. IN 0.4MG TABLET GUAL 1 2020 [place] TAB,SUBLING UNDER RY CBOC UAL THE TONGUE EVERY 5 MINUTES NEEDED FOR CHEST PAIN (ANGINA) MAY REPEAT FOR THREE DOSES (IF NO RELIEF,S [facility] N PROMPTLY ) Allergies, Adverse [...] atus Comments Source Given By Number Code Rheumatology Specialist ZOSTER [address] RECOMBINANT 2020 ed [...] result by 1.210 Tests performed on [facility] Manager (405) SN:[id number] [place] eGFR E] IN SERUM Ordering Pr ovider: [facility]A [facility] PANEL OR PLASMA Report Releas ed Date/Time: Feb 24, 2021 11:18 AM Reporting Lab: [place] [facility] [address] [facility] [place] [address] Performing Lab: [place] [facility] [address] [place] [facility] [place] [address] CREATININ GLOMERULAR 44 60 04/28 L Specimen Ty pe: PLASMA WHITE E WITH FILTRATION /2020 Comment: For eGFR: Race unknown, if multiply result by 1.210 Tests performed on [facility] (405) SN:[id number] [place] eGFR RATE/1.73 Ordering Prov ider: [facility] [facility] PANEL SQ Report Released Date/Time: Feb 24, 2021 11:18 AM M.PREDICTED Reporting L ab: [place] [facility] [VOLUME [address] [place] [facility] [place] [address] RATE/AREA] Performing L ab: [place] [facility] IN SERUM OR [address] [place] [facility] [place] [address] PLASMA BY CREATININE- BASED FORMULA (MDRD) CBC NO LEUKOCYTES 5.8 4.5 - 11.0 04/28 Specimen T ype: BLOOD WHITE DIFF [#/VOLUME] /2020 No comment en tered. [place] IN BLOOD BY Ordering Pr ovider: [facility] AUTOMATED Report Releas ed Date/Time: Feb 24, 2021 11:18 AM COUNT Reporting Lab: [place] [facility] [address] [facility] [place] [address] Performing Lab: [place] [facility] [address] [place] [facility] [place] [address] CBC NO ERYTHROCYTE 4.61 4.23 - 04/28 Specimen Typ e: BLOOD WHITE DIFF S 5.66 /2020 No comment enter ed. [place] [#/VOLUME] Ordering Pro vider: [facility] [facility] IN BLOOD BY Report Rele ased Date/Time: Feb 24, 2021 11:18 AM AUTOMATED Reporting Lab : [place] [facility] COUNT [address] [place] [facility] [place] [address] Performing Lab: [place] [facility] [address] [facility] [address] CBC NO HEMOGLOBIN 13.9 12.8 - 17 04/28 Specimen Ty pe: BLOOD WHITE DIFF [MASS/VOLUM /2020 No comment e ntered. [place] E] IN BLOOD Ordering Pr ovider: MILTON UREÑAOC Report Released Date/Time: Feb 24, 2021 11:18 AM Reporting Lab: [place] [facility] [address] [facility] [address] Performing Lab: [place] [facility] [address] [facility] [address] CBC NO HEMATOCRIT 43.6 39.2 - 04/28 Specimen Type : BLOOD WHITE DIFF [VOLUME 50.4 No comment enter ed. [place] FRACTION] Ordering Prov ider: [facility] U[facility] OF BLOOD BY Report Rele ased Date/Time: Feb 24, 2021 11:18 AM AUTOMATED Reporting Lab : [place] [facility] COUNT [address] [facility] [address] Performing Lab: [place] [facility] [address] [facility] [address] CBC NO MCV 94.6 82 - 99 04/28 Specimen Type: B LOOD WHITE DIFF [ENTITIC /2020 No comment ente red. [place] VOLUME] BY Ordering Pro vider: MILTON UREÑ[facility] AUTOMATED Report Releas ed Date/Time: Feb 24, 2021 11:18 AM COUNT Reporting Lab: [place] [facility] [address] [place] [facility] [place] [address] Performing Lab: [place] [facility] [address] [place] [facility] [place] [address] CBC NO MCH 30.2 26.2 - 04/28 Specimen Type: B LOOD WHITE DIFF [ENTITIC 32.6 No comment ente red. [place] MASS] BY Ordering Provi adrian: MILTON UREÑAOC AUTOMATED Report Releas ed Date/Time: Feb 24, 2021 11:18 AM COUNT Reporting Lab: [place] [facility] [address] [facility] [address] Performing Lab: [place] [facility] [address] [facility] [address] CBC NO MCHC 31.9 30.8 - 04/28 Specimen Type: B LOOD WHITE DIFF [MASS/VOLUM 35.1 No comment e ntered. [place] E] BY Ordering Provid er: MILTON UREÑA AUTOMATED Report Releas ed Date/Time: Feb 24, 2021 11:18 AM COUNT Reporting Lab: [place] [facility] [address] [facility] [address] Performing Lab: [place] [facility] [address] [facility] [address] CBC NO PLATELETS 141 140 - 360 04/28 Specimen Typ e: BLOOD WHITE DIFF [#/VOLUME] /2020 No comment en tered. [place] IN BLOOD BY Ordering Pr ovider: MILTON UREÑA AUTOMATED Report Releas ed Date/Time: Feb 24, 2021 11:18 AM COUNT Reporting Lab: [place] [facility] [address] [facility] [address] Performing Lab: [place] [facility] [address] [facility] [address] CBC NO PLATELET 12.1 9.2 - 12.4 04/28 Specimen Typ e: BLOOD WHITE DIFF MEAN VOLUME /2020 No comment e ntered. [place] [ENTITIC Ordering Provi adrian: MILTON UREÑAOC VOLUME] IN Report Relea sed Date/Time: Feb 24, 2021 11:18 AM BLOOD BY Reporting Lab: [place] [facility] AUTOMATED [address] [facility] [address] COUNT Performing Lab: [place] [facility] [address] [facility] [address] CBC NO ERYTHROCYTE 15.0 12.0 - 04/28 Specimen Typ e: BLOOD WHITE DIFF DISTRIBUTIO 16.0 No comment e ntered. [place] N WIDTH Ordering Provid er: MILTON UREÑAOC [RATIO] BY Report Relea sed Date/Time: Feb 24, 2021 11:18 AM AUTOMATED Reporting Lab : [place] [facility] COUNT [address] [facility] [address] Performing Lab: [place] [facility] [address] [facility] [address] CREATININ CREATININE 1.37 0.5 - 1.5 02/22 Specimen Type: PLASMA WHITE E WITH [MASS/VOLUM /2020 Comment: Fo r eGFR: Race unknown, if multiply result by 1.210 Tests performed on [employer] (405) SN:[id number] [place] eGFR E] IN SERUM Ordering Pr ovider: [place] [facility] PANEL OR PLASMA Report Releas ed Date/Time: Dec 20, 2020 02:24 PM Reporting Lab: [place] [facility] [address] [facility] [address] Performing Lab: [place] [facility] [address] [facility] [address] CREATININ GLOMERULAR 51 60 02/22 L Specimen Ty pe: PLASMA WHITE E WITH FILTRATION /2020 Comment: For eGFR: Race unknown, if multiply result by 1.210 Tests performed on [employer] (405) SN:[id number] [place] eGFR RATE/1.73 Ordering Prov ider: [facility] PANEL SQ Report Released Date/Time: Dec 20, 2020 02:24 PM M.PREDICTED Reporting L ab: [place] [facility] [VOLUME [address] [facility] [address] RATE/AREA] Performing L ab: [place] [facility] IN SERUM OR [address] [facility] [address] PLASMA BY CREATININE- BASED FORMULA (MDRD) CBC NO LEUKOCYTES 6.8 4.5 - 11.0 02/22 Specimen T ype: BLOOD WHITE DIFF [#/VOLUME] /2020 No comment en tered. [place] IN BLOOD BY Ordering Pr ovider: [facility] AUTOMATED Report Rele ed Date/Time: Dec 20, 2020 02:24 PM COUNT Reporting Lab: [place] [facility] [address] [facility] [address] Performing Lab: [place] [facility] [address] [facility] [address] CBC NO ERYTHROCYTE 5.03 4.23 - 08/24 Specimen Typ e: BLOOD WHITE DIFF S 5.66 /2020 No comment enter ed. [place] [#/VOLUME] Ordering Pro vider: [facility] IN BLOOD BY Report Rele ased Date/Time: Dec 20, 2020 02:24 PM AUTOMATED Reporting Lab : [place] [facility] COUNT [address] [facility] [place] [address] Performing Lab: [place] [facility] [address] [facility] [place] [address] CBC NO HEMOGLOBIN 14.9 12.8 - 17 02/22 Specimen Ty pe: BLOOD WHITE DIFF [MASS/VOLUM /2020 No comment e ntered. [place] E] IN BLOOD Ordering Pr ovider: MILTON UREÑAOC Report Released Date/Time: Dec 20, 2020 02:24 PM Reporting Lab: [place] [facility] [address] [facility] [place] [address] Performing Lab: [place] [facility] [address] [facility] [place] [address] CBC NO HEMATOCRIT 46.7 39.2 - 02/22 Specimen Type : BLOOD WHITE DIFF [VOLUME 50.4 No comment enter ed. [place] FRACTION] Ordering Prov ider: [facility] OF BLOOD BY Report Rele ased Date/Time: Dec 20, 2020 02:24 PM AUTOMATED Reporting Lab : [place] [facility] COUNT [address] [facility] [place] [address] Performing Lab: [place] [facility] [address] [facility] [place] [address] CBC NO MCV 92.8 82 - 99 02/22 Specimen Type: B LOOD WHITE DIFF [ENTITIC /2020 No comment ente red. [place] VOLUME] BY Ordering Pro vider: MIL[place] UREÑ[facility] AUTOMATED Report Releas ed Date/Time: Dec 20, 2020 02:24 PM COUNT Reporting Lab: [place] [facility] [address] [facility] [place] [address] Performing Lab: [place] [facility] [address] [facility] [place] [address] CBC NO MCH 29.6 26.2 - 02/22 Specimen Type: B LOOD WHITE DIFF [ENTITIC 32.6 /2020 No comment ente red. [place] MASS] BY Ordering Provi adrian: MILTON UREÑA AUTOMATED Report Releas ed Date/Time: Dec 20, 2020 02:24 PM COUNT Reporting Lab: [place] [facility] [address] [facility] [place] [address] Performing Lab: [place] [facility] [address] [place] [facility] [place] [address] CBC NO MCHC 31.9 30.8 - 08 Specimen Type: B LOOD WHITE DIFF [MASS/VOLUM 35.1 /2020 No comment e ntered. [place] E] BY Ordering Provid er: MILTON UREÑA AUTOMATED Report Releas ed Date/Time: Dec 20, 2020 02:24 PM COUNT Reporting Lab: [place] [facility] [address] [place] [facility] [place] [address] Performing Lab: [place] [facility] [address] [place] [facility] [place] [address] CBC NO PLATELETS 159 140 - 360 08 Specimen Typ e: BLOOD WHITE DIFF [#/VOLUME] /2020 No comment en tered. [place] IN BLOOD BY Ordering Pr ovider: MIL[place] UREÑ[facility] AUTOMATED Report Releas ed Date/Time: Dec 20, 2020 02:24 PM COUNT Reporting Lab: [place] [facility] [address] [place] [facility] [place] [address] Performing Lab: [place] [facility] [address] [place] [facility] [place] [address] CBC NO PLATELET 13.0 9.2 - 12.4 08/24 H Specimen Typ e: BLOOD WHITE DIFF MEAN VOLUME /2020 No comment e ntered. [place] [ENTITIC Ordering Provi adrian: MILTON UREÑA VAOC VOLUME] IN Report Relea sed Date/Time: Dec 20, 2020 02:24 PM BLOOD BY Reporting Lab: [place] [facility] AUTOMATED [address] [place] [facility] [place] [facility] [place] [address] COUNT Performing Lab: [place] [facility] [address] [place] [facility] [place] [address] CBC NO ERYTHROCYTE 14.6 12.0 - 08 Specimen Typ e: BLOOD WHITE DIFF DISTRIBUTIO 16.0 /2020 No comment e ntered. [place] WIDTH Ordering Provid er: [facility] [RATIO] BY Report Relea sed Date/Time: Dec 20, 2020 02:24 PM AUTOMATED Reporting Lab : [facility] [address] [facility] [address] Performing Lab: [facility] [address] [facility] [address] P4 UREA 20 7 - 25 02/22 Specimen Type: P LASMA ST. GLU,BUN,C NITROGEN /2020 Comment: For eGFR: Race unknown, if multiply result by 1.210 Tests performed on Morgan [place] (405) SN:[id number] IVORY BECKETT [MASS/VOLUM Ordering Provider: GRETCHEN PEREZ CA E] IN SERUM Report Rele ased Date/Time: Feb 22, 2021 10:13 AM OR PLASMA Reporting Lab : [facility] [address] [facility] [address] Per[facility]: [facility] [address] [facility] [address] P4 SODIUM 133 135 - 145 / L Specimen Type: PLASMA ST. GLU,BUN,C [MOLES/VOLU /2020 Comment: For eGFR: Race unknown, if multiply result by 1.210 Tests performed on [employer] (405) SN:[id number] IVORY BECKETT AL] IN Ordering Prov ider: GRETCHEN PEREZ CA SERUM OR Report Release d Date/Time: Feb 22, 2021 10:13 AM PLASMA Reporting Lab: [facility] [address] [facility] [address] Per[facility]: [facility] [address] [facility] [address] P4 POTASSIUM 4.5 3.5 - 5.0 02/22 Specimen Typ e: PLASMA ST. GLU,BUN,C [MOLES/VOLU /2020 Comment: For eGFR: Race unknown, if multiply result by 1.210 Tests performed on [employer] (405) SN:[id number] IVORY BECKETT AL] IN Ordering Prov ider: GRETCHEN PEREZ CA SERUM OR Report Release d Date/Time: Feb 22, 2021 10:13 AM PLASMA Reporting Lab[facility] [address] [place] [facility] [place] [address] Performing Lab: [facility] [address] [facility] [address] P4 CHLORIDE 102 100 - 110 02/22 Specimen Type : PLASMA ST. GLU,BUN,C [MOLES/VOLU /2020 Comment: For eGFR: Race unknown, if multiply result by 1.210 Tests performed on [facility] (405) SN:[id number] MARCELA REAT,LYTE ME] IN Ordering Prov ider: GRETCHEN PEREZ CA SERUM OR Report Release d Date/Time: Feb 22, 2021 10:13 AM PLASMA Reporting Lab: [facility] [address] [place] [facility] [place] [address] Performing Lab: [facility] [address] [place] [facility] [place] [address] P4 CARBON 21 20 - 30 02/22 Specimen Type: P LASMA ST. GLU,BUN,C DIOXIDE, /2020 Comment: For eGFR: Race unknown, if multiply result by 1.210 Tests performed on [employer] (405) SN:[id number] JOHNSCAESAR REAT,LYTE TOTAL Ordering Prov ider: GRETCHEN PEREZ CA [MOLES/VOLU Report Rele ased Date/Time: Feb 22, 2021 10:13 AM ME] IN Reporting Lab: [facility] SER[facility] [address] [place] [facility] [place] [address] PLASMA Performing Lab: [facility] [address] [place] [facility] [place] [address] P4 ANION GAP 10 4 - 16 02/22 Specimen Type: PLASMA ST. GLU,BUN,C IN SERUM OR /2020 Comment: For eGFR: Race unknown, if multiply result by 1.210 Tests performed on [employer] (405) SN:[id number] JOHNSCAESAR REAT,LYTE PLASMA Ordering Prov ider: GRETCHEN PEREZ CA Report Released Date/Time: Feb 22, 2021 10:13 AM Reporting Lab: [facility] [address] [place] [facility] [place] [address] Performing Lab: [facility] [address] [facility] [address] P4 GLUCOSE 106 65 - 100 08/24 H Specimen Type: PLASMA ST. GLU,BUN,C [MASS/VOLUM /2020 Comment: For eGFR: Race unknown, if multiply result by 1.210 Tests performed on [employer] (405) SN:[id number] IVORY BECKETT] IN SERUM Ordering Provider: GRETCHEN PEREZCA OR PLASMA Report Releas ed Date/Time: Feb 22, 2021 10:13 AM Reporting Lab: [facility] [address] [facility] [address] Performing Lab: [facility] [address] [facility] [address] P4 CREATININE 1.37 0.5 - 1.5 08/24 Specimen Ty pe: PLASMA ST. GLU,BUN,C [MASS/VOLUM /2020 Comment: For eGFR: Race unknown, if multiply result by 1.210 Tests performed on [employer] (405) SN:[id number] BLAIR BECKETTTE E] IN SERUM Ordering Provider: GRETCHEN PEREZ CA OR PLASMA Report Releas ed Date/Time: Feb 22, 2021 10:13 AM Reporting Lab: [facility] [address] [facility] [address] Performing Lab: [facility] [address] [facility] [address] P4 CALCIUM 9.6 8.5 - 10.5 02/22 Specimen Type : PLASMA ST. GLU,BUN,C [MASS/VOLUM /2020 Comment: For eGFR: Race unknown, if multiply result by 1.210 Tests performed on [employer] (405) SN:[id number] BLAIR BECKETTTE E] IN SERUM Ordering Provider: GRETCHEN PEREZCA OR PLASMA Report Releas ed Date/Time: Feb 22, 2021 10:13 AM Reporting Lab: [facility] [address] [facility] [address] Performing Lab: [facility] [address] [facility] [address] P4 GLOMERULAR 51 60 08/24 L Specimen Type : PLASMA ST. GLU,BUN,C FILTRATION /2020 Comment: F or eGFR: Race unknown, if multiply result by 1.210 Tests performed on [employer] (405) SN:[id number] IVORY BECKETT RATE/1.73 Ordering Pr ovider: GRETCHEN PEREZ S,CA SQ Report Released Date/Time: Feb 22, 2021 10:13 AM M.PREDICTED Reporting L ab: [place] [facility] [VOLUME [address] [facility] [address] RATE/AREA] Performing L ab: [place] [facility] IN SERUM OR [address] [facility] [address] PLASMA BY CREATININE- BASED FORMULA (MDRD) LIVER PROTEIN 8.0 6.0 - 8.5 02/22 Specimen Type: PLASMA ST. PROFILE [MASS/VOLUM /2020 Comment: Fo r eGFR: Race unknown, if multiply result by 1.210 Tests performed on [facility] (405) SN:[id number] MARCELA E] IN SERUM Ordering Pr ovider: GRETCHEN PEREZ OR PLASMA Report Releas ed Date/Time: Feb 22, 2021 10:13 AM Reporting Lab: [facility] [facility] [address] [facility] [place] [address] Performing Lab: [facility] [facility] [address] [place] [facility] [place] [address] LIVER ALBUMIN 4.0 3.2 - 5.0 02/22 Specimen Type: PLASMA ST. PROFILE [MASS/VOLUM /2020 Comment: Fo r eGFR: Race unknown, if multiply result by 1.210 Tests performed on [employer] (405) SN:[id number] MARCELA E] IN SERUM Ordering Pr ovider: GRETCHEN PEREZ OR PLASMA Report Releas ed Date/Time: Feb 22, 2021 10:13 AM Reporting Lab: [facility] [facility] [address] [facility] [place] [address] Performing Lab: [facility] [address] [place] [facility] [place] [address] LIVER BILIRUBIN.T 0.6 0.2 - 1.2 02/22 Specimen T ype: PLASMA ST. PROFILE OTAL /2020 Comment: For eG FR: Race unknown, if multiply result by 1.210 Tests performed on [employer] (405) SN:[id number] [facility] [MASS/VOLUM Ordering Pr ovider: GRETCHEN PEREZ E] IN SERUM Report Rele ased Date/Time: Feb 22, 2021 10:13 AM OR PLASMA Reporting Lab : [facility] [address] [facility] [address] Per[facility]: [facility] [address] [facility] [address] LIVER ALKALINE 75 40 - 150 08 Specimen Type: PLASMA ST. PROFILE PHOSPHATASE /2020 Comment: Fo r eGFR: Race unknown, if multiply result by 1.210 Tests performed on [employer] (405) SN:[id number] [facility] [ENZYMATIC Ordering Pro vider: GRETCHEN PEREZ ACTIVITY/VO Report Rele ased Date/Time: Feb 22, 2021 10:13 AM LUME] IN Reporting Lab: [facility] SERUM OR [address] [facility] [address] PLASMA Performing Lab: [facility] [address] [facility] [address] LIVER ALANINE 16 7 - 52 02/22 Specimen Type: P LASMA ST. PROFILE AMINOTRANSF /2020 Comment: Fo r eGFR: Race unknown, if multiply result by 1.210 Tests performed on [employer] (405) SN:[id number] [facility] ERASE Ordering Provid er: GRETCHEN PEREZ [ENZYMATIC Report Relea sed Date/Time: Feb 22, 2021 10:13 AM ACTIVITY/VO Reporting L ab: [facility] LUME] IN [address] [place] [facility] [place] [address] SERUM OR Performing Lab : [facility] PLASMA [address] [place] [facility] [place] [address] LIVER ASPARTATE 17 5 - 34 02/22 Specimen Type: PLASMA ST. PROFILE AMINOTRANSF /2020 Comment: Fo r eGFR: Race unknown, if multiply result by 1.210 Tests performed on [employer] (405) SN:[id number] [facility] ERASE Ordering Provid er: GRETCHEN PEREZ [ENZYMATIC Report Relea sed Date/Time: Feb 22, 2021 10:13 AM ACTIVITY/VO Reporting L ab: [facility] LUME] IN [address] [facility] [address] SERUM OR Performing Lab : [facility] PLASMA [address] [facility] [address] GLYCOHEMO HEMOGLOBIN 6.2 4.0 - 5.6 08/24 H Specimen Type: BLOOD ST. GLOBIN A1C/HEMOGLO /2020 Comment: Te sts performed on [facility] Manager (405) SN:[id number] [facility] (A1C BIN.TOTAL Ordering Prov ider: GRETCHEN PEREZ ONLY) IN BLOOD BY Report Rele ased Date/Time: Feb 22, 2021 10:13 AM HPLC Reporting [facility] [address] [facility] [address] Performing Lab[facility] [address] [facility] [address] LIPOPROTE CHOLESTEROL 361 0 - 199 08/24 H Specimen T ype: PLASMA ST. IN [MASS/VOLUM /2020 Comment: Fo r eGFR: Race unknown, if multiply result by 1.210 Tests performed on [employer] (405) SN:[id number] [facility] CHOLESTER E] IN SERUM Ordering Provider: GRETCHEN PEREZ OL FRACT. OR PLASMA Report Rele ased Date/Time: Feb 22, 2021 10:13 AM PANEL Reporting [facility]: [facility] [address] [facility] [address] Performing [facility]: [facility] [address] [facility] [address] LIPOPROTE TRIGLYCERID 170 0 - 149 08/24 H Specimen T ype: PLASMA ST. IN E Comment: For eG FR: Race unknown, if multiply result by 1.210 Tests performed on [employer] (405) SN:[id number] [facility] [MASS/VOLUM Ordering Provider: GRETCHEN PEREZ OL FRACT. E] IN SERUM Report Re leased Date/Time: Feb 22, 2021 10:13 AM PANEL OR PLASMA Reporting Lab : [facility] [address] [facility] [address] Performing Lab: [facility] [address] [facility] [address] LIPOPROTE CHOLESTEROL 46 40 08/24 Specimen T ype: PLASMA ST. IN IN HDL /2020 Comment: For eG FR: Race unknown, if multiply result by 1.210 Tests performed on [facility] Manager (405) SN:[id number] MARCELA CHOLESTER [MASS/VOLUM Ordering Provider: GRETCHEN PEREZ OL FRACT. E] IN SERUM Report Re leased Date/Time: Feb 22, 2021 10:13 AM PANEL OR PLASMA Reporting Lab : [facility] [address] [facility] [address] Performing Lab: [facility] [address] [facility] [address] LIPOPROTE CHOLESTEROL 281 0 - 129 08/24 H Specimen T ype: PLASMA ST. IN IN LDL /2020 Comment: For eG FR: Race unknown, if multiply result by 1.210 Tests performed on [facility] (405) SN:[id number] MARCELA CHOLESTER [MASS/VOLUM Ordering Provider: GRETCHEN PEREZ OL FRACT. E] IN SERUM Report Re leased Date/Time: Feb 22, 2021 10:13 AM PANEL OR PLASMA Reporting Lab : [facility] BY [address] [facility] [address] CALCULATION Performing Lab: [facility] [address] [facility] [address] VITAMIN COBALAMIN 312 200 - 900 02/22 Specimen Typ e: SERUM ST. B-12 (VITAMIN /2020 Comment: Tests performed on [facility] (405) SN:[id number] [facility] Ordering Provid er: GRETCHEN PEREZ [MASS/VOLUM Report Rele ased Date/Time: Feb 22, 2021 10:13 AM E] IN SERUM Reporting L ab: [facility] OR PLASMA [address] [place] [facility] [place] [address] Performing Lab: [facility] [address] [facility] [address] TSH THYROTROPIN 3.14 0.35 - 02/22 Specimen Typ e: SERUM ST. [UNITS/VOLU 5.00 Comment: Te sts performed on [facility] (405) SN:[id number] [facility] IN Ordering Provid er: GRETCHEN PEREZ SERUM OR Report Release d Date/Time: Feb 22, 2021 10:13 AM PLASMA Reporting Lab: [facility] [address] [place] [place] [address] Performing Lab: [facility] [address] [facility] [address] Encounters Combined list of: 1) Encounters from Department of Veterans Affairs facilities going back up to the last 18 months. 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 Location Location Encounter Encounter Reason Attending ADM DC Stat us Disposition Source Details Type Number For Provider Date Date Visit Outpatient 12/13 WHIT E Encounter [id number] [facility] HC PRO 09954-0 Diagnos ADELITA, 12/20 W JIMBO PHONE CALL [id number] is: MILTON Will R IVER 11-20 MIN ICD-10- JCT CM [facility] Z79.01 snf (curren t) use of anticoa gulants
wi th Provide r Comment s: Long-te rm current use of anticoa gulant (SCT 2901582 ) Outpatient 02/22 WHIT E Encounter [id number] [facility] OFFICE O/P 23310-8 [place] 02/22 ST. 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
wi th Provide r Comment s: Long-te rm current use of anticoa gulant (SCT [id number] ) Outpatient [id number] 03/02 WHIT E [id number] [facility] 57073-2.40 Diagnos RADHA, 04/12 ST. ELA [id number] is[facility] ICD-10- RY CB[facility] TEST CM H90.3 Sensori neural hearing loss, bilater al
with Provide r Comment s: Asymmet rical sensori neural hearing loss (SNOMED CT 9824635 09) Outpatient [id number] 04/15 WHIT E Encounter [id number] /2021 [facility] OFFICE O/P 57342-5.40 Diagnos PETTIGLIO, 04/28 ST. 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
wi Provide r Comment s: Long-te rm current use of anticoa gulant ([facility] [id number] 03) Outpatient [id number] 07/[id number] [facility] Outpatient [id number] 03/03 [id number] [facility] Social History Combined list of available smoking, tobacco, and other social history from Department of Defense andVeterans Affairs facilities. Social History Response Date Comment Source Type Tobacco smoking VA-TOBACCO FORMER 02/22/2021 [facility] CBOC status NHIS USER History of tobacco VA-TOBACCO QUIT 1 02/22/2021 [facility] CBOC use TO < 5 YRS History of tobacco VA-TOBACCO FORMER 03/04/2020 [facility] CBOC use USER History of tobacco VA-TOBACCO USE 03/21/2018 [facility] CBOC use CONTINUOUS IMPROVEMENT INTERN NO History of tobacco CURRENT SMOKER 01/16/2018 [facility] CBOC use History of tobacco CURRENT SMOKER 03/28/2017 [facility] VA use CLINIC History of tobacco CURRENT SMOKER 04/17/2016 smokes about half [facility] CBOC use a pack a day History of tobacco CURRENT SMOKER 04/22/2015 smokes about half [facility] CBOC use a pack a day Advance Directives List of completed, amended, or rescinded Advance Directives on record at Department of Veterans Affairs facilities. An actual copy of the Directive is not included. Date Advance Directive Provider Source 01/15/2019 ADVANCE DIRECTIVE DISCUSSION [facility]PHAN[facility] HER[facility]NDEZ [facility]
--- OUTSIDE RECORDS SUMMARY | 2022-06-01 11:03 | XMS_ITS | Encounter Summary ---
:1945 Author Organization [facility] Address [address] [place] [address] Care Team Providers Name Role Phone Unavailable Primary Care Provider Unavailable Encounter Details Date Type Department Care Team Description 09/15/2003 Results Only [facility] - Otis Patel MD conversion [address] [facility] [address] [place] [address] [place] [address] (Wo rk) Social History Tobacco Use Types Packs/Day Years Used Date Smoking Tobacco: Never Assessed Sex Assigned at Date Recorded Not on file documented as of this encounter Plan of Treatment Not on filedocumented as of this encounter Procedures Procedure Name Priority Date/Time Associated Diagnosis Comme [facility] SURGICAL PATHOLOGY Routine 09/15/2003 0:00 EST Re sults for this procedure are i n the results section. documented in this encounter Results SURGICAL PATHOLOGY (09/15/2003 0:00 EST) Component Value Ref Test Analysis Performed At [facility] Method Time Signature Pathology SURGICAL PATHOLOGY REPORT ZAYNAB MARINELLI Report: Reports generated via electronic interface contain catherinea l data; MARLI MENDOZA however they are lacking the format of the original report. Caution should be taken when reading/interpreting unformatte d reports. Name: ? ANGEL LUIS SALINAS ? Accession #: ? [id number] ? : ? 1945 (Age: 58) ??M ? Collect Date: ? 09/15/2003 ? Location: ? [facility] ? Receive Date: ? 09/16/2003 ? Provider: OTIS MOSS MD Copy to: MALCOM MCGEE MANAGEMENT INFORMATION SYSTEMS DIRECTOR ? Final Pathologic Diagnosis: ? Skin of [...] e Number [facility] [address] [place] [address] SERVICES [facility] [address] [place] [address] documented in this encounter Visit Diagnoses Not on filedocumented in this encounter
--- OUTSIDE RECORDS SUMMARY | 2022-06-01 11:03 | XMS_ITS | Encounter Summary ---
:1945 Author Organization [facility] Address [address] [place] [address] Care Team Providers Name Role Phone Jennifer Gomez PRINT OPERATOR Primary Care Provider Encounter Details Date Type Department Care Team Description 08/26/2021 Lab Requisition [facility] Najma Valladares for other Pathology & M, DO general examination Laboratory Medicine - [address] [facility] [address] [place] [address] Social History Tobacco Use Types Packs/Day Years [...] Final A. RECTUM, POLYP, BIOPSY : 09/02/2021 [facility] MEDICAL Diagnosis - Polypoid submucosal anal glands. 13:09 EST CENTER - Overlying rectal mucosa negative for dysplasia. LABORATORY - See comment. SERVICES Diagnosis This rectal polyp shows a cantor bmucosal collection of anal duct glands causing a polypoid configuration. The morphology and the immunohistochemical profile are consistent with a benign (non-neoplastic) pro 09/02/2021 [facility] Comment cess. Retail Director slides of this case were reviewed at the gastrointestinal/liver intradepartmental consultation conference. : [facility] LABORATORY ANTIBODY(CLONE)(BLOCK):RESULT SERVICES CK7 (RN7, Leica) (A1): Strongly positive PAX-8 (MRQ-50, Lazy Y U) (A1): Negative NKX3.1 (Rabbit Polyclonal, Biocare) (A1): Negative GATA3 (L50-823, Lazy Y U) (A1): Negative NOTE: One or more of [...] MEDICA L Electronically below, the attending 13:09 [facility] signed by physician certifies LABORATORY Jacobo, that they have 1) SERVICES Tory roberts MD on personally conducted 09/02/2021 at a gross and/or 1309 microscopic examination of the described specimen(s), and/or personally interpreted the results of laboratory testing of the described specimen(s), and 2) personally rendered or confirmed the above diagnosis. Clinical Flex sigmoidoscopy; 09/02/2021 [facility] AL History diverticulosis, polyp : [facility]ORATORY SERVICES Gross A. 09/02/2021 [facility] Description Received in formalin mark d with proper patient identification (initials M, J) and rectal polyp is a marr-brown polyp, 0.6 x 0.5 x 0.4 cm. Bisected and entirely submitted in A1. 13: [facility] LABORATORY ESTEFANY NICHOLS(ASCP) 08/26/2021 16:41 SERVICES Performing [facility] 09/02/2021 [facility] AL Lab 13:[address] [facility] CENTER LABORATORY SERVICES Scanned 09/02/2021 [facility] Images 13:[address] [facility] CENTER LABORATORY SERVICES Specimen Anatomical Collection Method Collection Time Receive d Time (Source) Location / / Volume Laterality Tissue SPECIMEN FROM 08/26/2021 8:45 08/26/2021 RE[facility] / Unknown EST 16:37 EST Najma Valladares DO PATHOLOGY ORDERABLES Performing Organization Address City/State/ZIP Code Phon e Number [facility] [address] [place] [address] SERVICES documented in this encounter Visit Diagnoses Diagnosis Encounter for other general examination documented in this encounter Care Teams Journeyman Electrician Relationship Specialty Start Date End Date Jennifer Gomez NP PCP - General 05/10/15 [facility] [address] [place], [place] [address] documented as of this encounter
--- OUTSIDE RECORDS SUMMARY | 2022-06-01 11:03 | XMS_ITS | Encounter Summary ---
:1945 Author Organization [facility] Address [address] [place] [address] Care Team Providers Name Role Phone Unavailable Primary Care Provider Unavailable Encounter Details Date Type Department Care Team Description 09/02/2003 Results Only [facility] - Otis Patel MD conversion [address] [facility] [address] [place], [place] [address] [place] [address] (Wo rk) Social History Tobacco Use Types Packs/Day Years Used Date Smoking Tobacco: Never Assessed Sex Assigned at Date Recorded Not on file documented as of this encounter Plan of Treatment Not on filedocumented as of this encounter Procedures Procedure Name Priority Date/Time Associated Diagnosis Comme [facility] SURGICAL PATHOLOGY Routine 09/02/2003 0:00 EST Re sults for this procedure are i n the results section. documented in this encounter Results SURGICAL PATHOLOGY (09/02/2003 0:00 EST) Component Value Ref Test Analysis Performed At [facility] Method Time Signature Pathology SURGICAL PATHOLOGY REPORT ZAYNAB MARINELLI Report: Reports generated via electronic interface contain catherinea l data; MARLI MENDOZA however they are lacking the format of the original report. Caution should be taken when reading/interpreting unformatte d reports. Name: ? ANGEL LUIS SALINAS ? Accession #: ? [id number] ? : ? 1945 (Age: 58) ??M [...] of the lesion is recommended. ??(Dr. Jaz weller)/[email or web address] Microscopic Description: ? The epidermis is hype [...] and cords of similar melanocytes that show agent telegrapher maturation with descent. 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 ??(Dr. Mascorro)/[email or web address] Document reviewed and electronically signed by: Mai [...] entirely submitted in one cassette. ??(Dr. Alejandro jacobsen)/[facility] End of Report Specimen (Source) Anatomical Collection Method Collection Time Re ceived Time Location / / Volume Laterality 09/02/2003 09/03/2003 15:2 7 EST Otis Moss MD PATHOLOGY ORDERABLES Performing Organization Address City/State/ZIP Code Phon e Number [facility] [address] [place] [address] SERVICES [facility] [address] [place] [phone] documented in this encounter Visit Diagnoses Not on filedocumented in this encounter
--- OUTSIDE RECORDS SUMMARY | 2022-06-01 11:03 | XMS_ITS | Encounter Summary ---
:1945 Author Organization [facility] Address [address] [place] [address] Care Team Providers Name Role Phone France Lam MD Primary Care Provider Encounter Details Date Type Department Care Team Description 12/30/2019 TH Visit Cardiology at [facility] Faustino Garduno Claudication from peripheral vascular disease, left ; (TeleHealth) [facility] MD Jaquan Hyperlipidemia, unspecified hyperlipidem ia type; Drive [facility] Acute ST elevation myocardia l infarction (STEMI) of inferior wall; [place], [place] Center Acute systolic CHF (congestive heart reid lure), NYHA class 3, MILVIA/AHA stage C; [address] [place], [place] Intracranial hemorrhage; [phone] [id number] Atrial fibrillation, unspecified type Social History Tobacco [...] with ICH, bilateral PE; paroxysmal atrial fibrillation [[id number]: 5]; PAD; HLD; HTN; smoking and PFO,who [...] a non-culprit artery. S/P DESx3 in the kxnwdgwy-xu-jbmnbx RCA. Aspiration thrombectomy performed, and integrellin bolus [...] with ICH, bilateral PE; paroxysmal atrial fibrillation [[id number]: 5]; PAD; HLD; HTN; smoking and PFO, who presents for post-discharge cardiovascular follow-up. CV issues are currently stable. Plan 1. CAD - CCS Class 0. Recovering well. He has completed 1 month of triple therapy. He may stop his aspirin, and resume clopidogrel and apixaban. Starting cardiac rehab. He wishes to pursue PCSK9 referral via the [place] system. 2. Afib - CHADS2-vasc 5, presently [...] 6 months Faustino Garduno MD Time spent: 0550YPV0 0-5min 9395EWY3 6-10min 0466PQI9 11-15min 6262KTZ7 16-20min XXXX 0440AMN9 21-30min 3480RFF3 31-40min 2531WAQ8 40+ min documented in this encounter Plan of Treatment Upcoming Encounters Date Type Specialty Care Team Description 06/30/2022 Office Visit Endocrinology Alan Terrell MD [facility] [address] [place] [address] (Wo rk) documented as of [...] type documented in this encounter Care Teams Tunnel Man Relationship Specialty Start Date End Date France Lam MD PCP - General 05/02/13 02/04/20 [address] [place] [address] documented as of this encounter
--- OUTSIDE RECORDS SUMMARY | 2022-06-01 11:03 | XMS_ITS | Encounter Summary ---
:1945 Author Organization [facility] [place] [address] Care Team Providers Name Role Phone Jovany Lott MD Primary Care Provider Encounter Details Date Type Department Care Team Description 03/10/2022 Ancillary Procedure Radiology Library at Jovany Lott MD [facility] [address] [facility] [address] [place] [address] [phone] Social History Tobacco Use Types Packs/Day Years Used Date Smoking Tobacco: Former Cigarettes 0.5 Quit : 11/29/2019 Cigars Smokeless Tobacco: Former Sex Assigned at Date Recorded Not on file documented as of this encounter Plan of Treatment Upcoming Encounters Date Type Specialty Care Team Description 06/30/2022 Office Visit Endocrinology EchAlan coley MD [facility] ENDOCRINOLOGY [place], [place] [address] (Wo rk) documented as of [...] Code Phon e Number DH RAD DH [place], [place] documented in this encounter Visit Diagnoses Not on filedocumented in this encounter Care Teams Project Accountant Relationship Specialty Start Date End Date Jovany Lott MD PCP - General Family Medicine 02/05/20 [place] [address] documented as of this encounter
--- OUTSIDE RECORDS SUMMARY | 2022-06-01 11:03 | XMS_ITS | Encounter Summary ---
:1945 Author Organization [facility] [address] Care Team Providers Name Role Phone France Lam MD Primary Care Provider Reason for Visit Reason Onset Date Comments TeleHealth 01/12/2020 Encounter Details Date Type Department Care Team Description 01/12/2020 Telephone Neurosurgery at [facility] Alfreda Salas, TeleHealth [facility] [place] [address] [facility] [phone] [place], [place] [address] (Wo rk) Social History Tobacco [...] 06/30/2022 Office Visit Endocrinology Alan Terrell MD [facility] ENDOCRINOLOGY [place], [place] [address] (Wo rk) documented as of this encounter Visit Diagnoses Not on filedocumented in this encounter Care Teams Package Delivery Driver Relationship Specialty Start Date End Date France Lam MD PCP - General 05/02/13 02/04/20 [address] [place] [address] documented as of this encounter
--- OUTSIDE RECORDS SUMMARY | 2022-06-01 11:03 | XMS_ITS | Encounter Summary ---
:1945 Author Organization [facility] Address [facility] [place] [address] Care Team Providers Name Role Phone Jovany Lott MD Primary Care Provider Encounter Details Date Type Department Care Team Description 08/31/2020 TH Visit Cardiology at [facility] Faustino Garduno Atrial fibrillation, unspeci fied type (Primary Dx); (TeleHealth) [facility] MD Jaquan Acute ST elevation myocardial infarction (STEMI) of inferior wall; Drive [facility] Acute systolic CHF (congesti ve heart failure), NYHA class 3, MILVIA/AHA stage C; [place], [place] Center Hyperlipidemia, unspecified hyperlipidem ia type; [address] [place], [place] Intracranial hemorrhage; [phone] [address] PFO (patent foramen ovale); [phone] Claudication fr om peripheral vascular disease, left [...] with ICH, bilateral PE; paroxysmal atrial fibrillation [[id number]: 5]; PAD; HLD; HTN; smoking and PFO,who [...] appointment with Dr. Faustino Chou at the [facility]. However, he has not grossly [...] a non-culprit artery. S/P DESx3 in the zjpeyvly-te-ninrfw RCA. Aspiration thrombectomy performed, and integrellin bolus [...] with ICH, bilateral PE; paroxysmal atrial fibrillation [[id number]: 5]; PAD; HLD; HTN; smoking and PFO, [...] Will also discuss further with his local marine firefighter, Dr. Mejia. 3. Bilateral PE - Case discussed with Dr. Sanchez above; likely provoked in lieu of his prolonged hospitalization. He has completed at least 6 months of oral A/C (coinciding treatment for his afib). 4. PAD - Continue optimal medical therapy for now. Will place referral for SET/walking program. F/U 3 months Faustino Garduno MD Time spent: 35 minutes Addendum 09/13/20: Called [phone] or [phone] and was able to speak to Dr. Faustino Chou. Pt also sees Dr. Lott in [facility] for local primary care needs. Dr. 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 5RBCs also noted on urinanalysis that subsequently cleared on repeat testing. documented in this encounter Plan of Treatment Upcoming Encounters Date Type Specialty Care Team Description 06/30/2022 Office Visit Endocrinology EchtAlan MD [facility] ENDOCRINOLOGY [place], [place] [address] (Wo rk) documented [...] unspecified documented in this encounter Care Teams Tower Director Relationship Specialty Start Date End Date Jovany Lott MD PCP - General Family Medicine 02/05/[address] [place] [address] [address] documented as of this encounter
--- OUTSIDE RECORDS SUMMARY | 2022-06-01 11:03 | XMS_ITS | Encounter Summary ---
:1945 Author Organization [facility] Address [address] [place] [address] Care Team Providers Name Role Phone Jennifer Gomez SPREAD CUTTER Primary Care Provider Encounter Details Date Type Department Care Team Description 01/25/2022 Lab Requisition [facility] Center Outr Resulting Lab, Pathology & Laboratory Provider [facility] [address] [place], [place] [id number] Social History Tobacco Use Types Packs/Day Years [...] BACTERIAL PATHOGENS BY PCR (01/24/2022 14:50 EDT) [facility] Method Time Signature Salmonella PCR Negative Negative 01/25/2022 [facility] 22:03 EDT CENTER LABORATORY SERVICES Shigella/Enteroin Negative Negative 01/25/2022 [facility] vasive E. coli 22:03 EDT CENTER LABORATORY SERVICES [facility] LAB Negative Negative 01/25/2022 [facility] PCR 22:03 EDT CENTER LABORATORY SERVICES Shiga Toxin PCR Negative Negative 01/25/2022 [facility] 22:03 EDT CENTER LABORATORY SERVICES Specimen Anatomical Collection Method Collection Time Receive d Time (Source) Location / / Volume Laterality Feces SPECIMEN FROM 01/24/2022 14:50 01/25/2022 [facility] / Unknown EDT 17:30 EDT Provider Outr Resulting Lab MICROBIOLOGY - GENERAL ORD ERABLES Performing Organization Address City/State/[facility] Code Phon e Number [facility] [address] [place] [address] SERVICES documented in this encounter Visit Diagnoses Not on filedocumented in this encounter Care Teams Business Employment Specialist Relationship Specialty Start Date End Date Jennifer Gomez, NAMITA PCP - General 05/10/15 [facility] [address] [place] [address] documented as of this encounter
--- OUTSIDE RECORDS SUMMARY | 2022-06-01 11:03 | XMS_ITS | Encounter Summary ---
:1945 Author Organization [facility] Address [address] [place] [address] Care Team Providers Name Role Phone Jennifer Gomez REINFORCED IRONWORKER Primary Care Provider Encounter Details Date Type Department Care Team Description 04/24/2022 Lab Requisition [facility] Outr Resulting Lab, Pathology & Laboratory Provider [facility] [address] [id number] Social History Tobacco Use Types Packs/Day Years [...] T3, Free 2.8 2.8 - 5.3 04/25/2022 [facility] pg/mL 21:09 EDT [facility] Specimen Anatomical Collection Method Collection Time Receive d Time (Source) Location / / Volume Laterality Blood VENOUS BLOOD / 04/24/2022 11:50 Unknown EDT 20:27 EDT Provider Outr Resulting Lab CHEMISTRY & BLOOD GAS CHLOE IBARRA Performing Organization Address City/State/ZIP Code Phon e Number [facility] [address] [place] [address] SERVICES documented in this encounter Visit Diagnoses Not on filedocumented in this encounter Care Teams Unit Reactor Operator Relationship Specialty Start Date End Date Jennifer Gomez, REINFORCED IRONWORKER PCP - General 05/10/15 [facility] [address] [place] [address] documented as of this encounter
--- OUTSIDE RECORDS SUMMARY | 2022-06-01 11:03 | XMS_ITS | Encounter Summary ---
:1945 Author Organization [facility] [place] [address] Care Team Providers Name Role Phone France Lam MD Primary Care Provider Encounter Details Date Type Department Care Team Description 12/18/2019 Ancillary Procedure Radiology [place] Debi Lam [facility] [place] [facility] [address] [place] [address] [place] [phone] Social History Tobacco Use Types Packs/Day Years Used Date Smoking Tobacco: Every Day Cigarettes 0.5 Cigars Sex Assigned at Date Recorded Not on file documented as of this encounter Plan of Treatment Upcoming Encounters Date Type Specialty Care Team Description 06/30/2022 Office Visit Endocrinology Alan Terrell MD [facility] [address] [place], [place] [address] (Wo rk) documented as of [...] is for storage only. France Lam MD [facility] FILM LIBRARY ORDERABLES Performing Organization Address City/State/ZIP Code Phon e Number [facility] [place], [place] documented in this encounter Visit Diagnoses Not on filedocumented in this encounter Care Teams Dosier Operator Relationship Specialty Start Date End Date France Lam MD PCP - General 05/02/13 02/04/20 [address] [place] [address] documented as of this encounter
--- OUTSIDE RECORDS SUMMARY | 2022-06-01 11:03 | XMS_ITS | Clinical Summary ---
:1945 Author Organization [facility] Address [address] [place] [address] Care Team Providers Name Role Phone Jennifer Gomez Bunny RESEARCH METHODOLOGIST Primary Care Provider Encounters Date Type Specialty [...] T3, Free 2.8 2.8 - 5.3 04/25/2022 [facility] pg/mL 21:09 [facility] Specimen Anatomical Collection Method Collection Time Receive d Time (Source) Location / / Volume Laterality Blood VENOUS BLOOD / 04/24/2022 11:50 2 Unknown EDT 20:27 EDT Provider Outr Resulting Lab CHEMISTRY & BLOOD GAS CHLOE IBARRA Performing Organization Address City/State/ZIP Code Phon e Number [facility] [address] [place] [address] SERVICES from Last 3 Months Insurance Payer Benefit Plan Subscriber ID Effective Phone Address Typ e / Group Dates [employer] OF [id number] 2018-Prese [id number] [place] [address] MEDICARE MEDICARE A/B [id number] 2011-Pres [address] Medicare GL ent [id number] [id number] (Work) Jovany Hi Personal/Family Self [address] (Home) [place] [address] (Work) Jovany Hi Personal/Family Self [address] (Home) [place] [address] (Work) Care Teams Farmworker Poultry Relationship Specialty Start Date End Date Jennifer Gomez NP PCP - General 05/10/15 [facility] [address] [place], [place] [address] (work)
--- OUTSIDE RECORDS SUMMARY | 2022-06-01 11:03 | XMS_ITS | Encounter Summary ---
:1945 Author Organization [facility] [place] [address] Care Team Providers Name Role Phone Jovany Lott MD Primary Care Provider Encounter Details Date Type Department Care Team Description 10/05/2020 Notes Only Cardiology Merlin Sanchez MD [facility] [place] [phone] CARDIOLOGY DEPT. [phone] [place], [place] [address] (Wo rk) Social History Tobacco [...] Endocrinology EchtAlan MD [facility] ER [address] [place], [place] [address] (Wo rk) documented as of this encounter Visit Diagnoses Not on filedocumented in this encounter Care Teams Economics Lecturer Relationship Specialty Start Date End Date Jovany Lott MD PCP - General Family Medicine 02/05/20 [address] [place] [address] documented as of this encounter
--- OUTSIDE RECORDS SUMMARY | 2022-06-01 11:03 | XMS_ITS | Encounter Summary ---
:1945 Author Organization [place] [address] Care Team Providers Name Role Phone France Lam MD Primary Care Provider Encounter Details Date Type Department Care Team Description 12/08/2019 Orders Only [place] [facility] [place] Natalia Delong, Intracranial [facility] [place] [address] Social History Tobacco Use Types Packs/Day Years Used Date Smoking Tobacco: Every Day Cigarettes 0.5 Cigars Sex Assigned at Date Recorded Not on file documented as of this encounter Plan of Treatment Upcoming Encounters Date Type Specialty Care Team Description 06/30/2022 Office Visit Endocrinology Alan Terrell MD [facility] ER ENDOCRINOLOGY [place], [place] [address] (Wo rk) documented as of this encounter Visit Diagnoses Diagnosis Intracranial hemorrhage Unspecified intracranial hemorrhage documented in this encounter Care Teams Senior Cyber Intelligence Analyst Relationship Specialty Start Date End Date France Lam MD PCP - General 05/02/13 02/04/20 [address] [place] [address] documented as of this encounter
--- OUTSIDE RECORDS SUMMARY | 2022-06-01 11:03 | XMS_ITS | Encounter Summary ---
:1945 Author Organization [facility] [place] [address] Care Team Providers Name Role Phone France Lam MD Primary Care Provider Reason for Visit Reason Onset Date Comments TeleHealth 12/22/2019 Appt 12/23/19 Encounter Details Date Type Department Care Team Description 12/22/2019 Telephone Neurosurgery at [facility] [place] Alfreda Salas TeleHealth (Appt [facility] Devin Sebastian, DYE BOX OPERATOR 12/23/19) [place] [address] [facility] [phone] [place] [address] Social History Tobacco Use Types Packs/Day [...] Terrell MD [facility] [place] [address] [place] [address] (Wo rk) documented as of this encounter Visit Diagnoses Not on filedocumented in this encounter Care Teams Celery Cutter Relationship Specialty Start Date End Date France Lam MD PCP - General 05/02/13 02/04/20 [address] [place] [address] documented as of this encounter
--- OUTSIDE RECORDS SUMMARY | 2022-06-01 11:03 | XMS_ITS | Encounter Summary ---
:1945 Author Organization [facility] Address [address] [place] [address] Care Team Providers Name Role Phone Jennifer Gomez BLEACH PACKER Primary Care Provider Encounter Details Date Type Department Care Team Description 03/19/2019 Hospital Encounter [facility] [place] Unknown, Provider, [facility] [phone] [place] [address] (Work) [phone] Social History Tobacco Use Types Packs/Day Years Used Date Smoking Tobacco: Never Assessed Sex Assigned at Date Recorded Not on file documented as of this encounter Discharge Disposition Disposition Code Departure Means Destination Home or Self [place] documented in this encounter Plan of Treatment Not on filedocumented as of this encounter Visit Diagnoses Not on filedocumented in this encounter Care Teams Acid Conditioner Relationship Specialty Start Date End Date Jennifer Gomez, BLEACH PACKER PCP - General 05/10/15 [facility] [address] [place], [place] [address] documented as of this encounter
--- OUTSIDE RECORDS SUMMARY | 2022-06-01 11:04 | XMS_ITS | Encounter Summary ---
:1945 Author Organization [place] [address] Care Team Providers Name Role Phone France Lam MD Primary Care Provider Reason for Referral Consultation (Routine) - Specialty Diagnoses / Procedures Referred By Contact Refer red To Contact Cardiology Diagnoses Acute ST elevation myocardial infarction (STEMI) of inferior wall Darrell Glasgow MD [facility] [place] [address] Referral ID Status Reason Start Date Expiration Date Visits V isits Requested Authorized [id number] Consult, 12/08/2019 06/05/2020 1 1 Test & Treat Consultation (Routine) - Closed Specialty Diagnoses / Referred By Contact Referred To Contact Procedures Cardiac Rehabilitation Diagnoses ST elevation myocardial infarction involving right coronary artery Gretchen Yoon, Cardiac Rehab, [address] [place] [address] Fax: Referral ID Status Reason Start Date Expiration Date Visits V isits Requested Authorized [id number] Closed Consult, 12/08/2019 06/05/2020 36 36 Test & Treat Reason for Visit Auth/Cert Specialty Diagnoses / Procedures Referred By Contact Refer red To Contact Diagnoses STEMI (ST elevation myocardial infarction) STEMI Procedures CARDIAC CATHETERIZATION Referral ID Status Reason Start Date Expiration Date Visits Requ ested Visits Authorized [id number] 1 1 Encounter Details Date Type Department Care Team Description 11/29/2019 - Hospital Encounter Cardiac Special YoungBarbra MD [facility] [place] [address] ST elevation myocardial infarction invol ving left main coronary artery; 12/08/2019 Care Unit Paris Lozano MD [facility] [place] [address] ST elevation myocardial infarction invol ving right coronary artery; [facility] Edema of upper extremity; Hospital Intracranial hemorrhage; [facility] Paroxysma l atrial fibrillation; Drive Acute pulmonary embolism, un specified pulmonary embolism type, unspecified whether acute cor pulmonale present; [place], [place] Acute ST elevat ion myocardial infarction (STEMI) of inferior wall [id number] Social History Tobacco Use Types Packs/Day Years [...] Luis Salinas Patient Age: 74 y.o. Language: Bermudian Race: White Ethnicity: Not nor Admit date: [...] months on: antiplatelet therapy at discretion of bead forming machine operator - Repeat TTE in 3 months to reassess LV function - Repeat BMP in 1-2 weeks given recent start lisinopril - Referred to lipid clinic for consideration of PCSK-9 inhibitor given STEMI with intolerance of statins - Started on amiodarone this admission for recurrent rapid atrial flutter with rates ~170, recommendcontinued assessment of necessity of rhythm control strategy with bead forming machine operator - Amiodarone monitoring recommendations as [...] please contact your inpatient physician through the [facility] Nibbler Operator . Issues after hours and on [...] and Compazine. He was transferred directly to [facility] via [facility] for further management. Patient had an emergent PCI with 3 MACARIO stents placed to his RCA, with mild disease of LCX (report pending) at [facility]. He was found to be persistently hypotensive [...] than 65 pack years. Family history of CA in father and two uncles. He's takingbaby [...] drip as described above. On arrival at [facility] he was taken for cardiac cath where [...] priority for the procedure was Emergent. [facility] [...] signed by: Angel Luis Barboza MD, [facility] ([phone]), at 11/30/2019 12:[address] Head wo [...] below. Electronically signed by: [facility] ([phone]), at 11/30/2019 5:[address] Angiogram [place] [facility] [place] (Exam End: 11/30/2019 4:36 PM) Impression Head CT: Stable hemorrhage in the region of the left optic tract. CTA: Negative exam. No abnormal vasculature in the area of hemorrhage. Thank you for letting us participate in the care of this patient. For questions regarding this report, please contact the number below. Electronically signed by: Angel Luis Barboza MD, [facility] ([phone]), at 11/30/2019 5:04 PM MRI Brain wo [...] signed by: Angel Luis Barboza MD, [facility] ([phone]), at 12/01/2019 8:02 PM XR Chest One [...] ??? Penicillins Pt doesn't remember reaction ??? Mxuttsu-Kef-Yix Reductase Inhibitors Stiff neck, upset stomach, back [...] medications at another hospital and then at [facility] you had a stent placed in a [...] FOR ONE MONTH AND THEN STOP. Your bead forming machine operator may tell you to start this medication again after one year. Clopidogrel (Plavix) 75 mg daily - This medication will help prevent clots from forming in your blood, which will help protect the stent that was placed in your heart vessel. TAKE THIS FOR ONE YEAR ANDTHEN DISCUSS WITH YOUR MAGENTO DEVELOPER WHETHER TO STOP. Amiodarone 400mg twice [...] follow up: Your primary care provider and bead forming machine operator will manage your blood thinner (apixaban). You do not need lab monitoring of this medication. Diet: Please consume a healthy diet low in cholesterol Follow up Appointments: 12/10/2019 at 3:10PM with PCP Angel Luis Lott Future Appointments Date Time Provider Department Center 12/23/2019 1:30 PM Alfreda Salas APRN [facility] [id number] 12/26/2019 9:40 AM Merlin Sanchez MD [facility] CARD 4A [facility] 12/30/2019 3:40 PM Gretchen Yoon MD [address] Future Appointments and Orders Future Appointments and Orders Future Appointments Provider Department Dept Phone 12/23/2019 1:30 PM Alfreda Salas APRN Neurosurgery at [facility] Arrive at: Home [phone] Please do not come in for this visit. Your provider will call you at the number you provided. 12/26/2019 9:40 AM Merlin Sanchez MD Cardiology at [facility] Arrive at: Home [phone] Please do not come in for this visit. Your provider will call you at the number you provided. 12/30/2019 3:40 PM Gretchen Yoon MD Cardiology at [facility] Arrive at: Home [phone] Please do not come in for this visit. Your provider will call you at the number you provided. Future Orders Complete By Expires Referral to Cardiac Rehab [ILV450 Custom] As directed Process Instructions: If no progress note charted, please enter Clinical details in comments. Scheduling Instructions: Questions: My question or request is: STEMI. Cardiac rehab at [facility] Referral to [facility] [REF43 Custom] As directed Process Instructions: If no progress note charted, please enter Clinical details in comments. Scheduling Instructions: Questions: My question or request is: patient with inferior stemi with history of statin allergy (rash) - please evaluate for psck9 inhibitor. Referral to Home Health - at DISCHARGE [DLZ2668 CPT(R)] As directed Process Instructions: Scheduling Instructions: Comments: DOCUMENTATION FOR VNA SERVICES PATIENT'S LOCATION: Angel Luis Corcoran [address] [address] (home) Consumer Educator's Name: Self In discussion with the attending physician, it is certified that this patient is under his/her care and that MD, or an EMERGENCY MEDICAL DISPATCHER, DRIFT MINER, or PA who is working directly with him/her, had a xplr-pi-gecd encounter that meets the physician hams-xp-eqjo encounter requirements with this patient on 12/07/2019. [...] CARE AGENCY: [facility], PHONE: [phone] FAX: [phone] Start of care: 24-48 hours after hospital [...] Lam MD [address] / [place] [address] All A agencies which cover the area [...] info: PCP Your PCP: France Lam MD [phone] For questions regarding this document or issues relating to this hospitalization on the Cardiology Service, please contact your inpatient physician through the [facility] Nibbler Operator . Issues after hours and on weekends will be handled by the Jira Administrator on-call. Patient Instructions: Neurology Your Diagnosis: Left [...] follow-up appointment in the neurology clinic at [facility]. See below for the appointment time. If you do not have an appointment, you will be called with a time/date for this appointment. ??? Primary Care Provider: Please follow up with your Primary Care Provider within one to [facility] General Instructions None Future Appointments and Orders Future Appointments and Orders Future Appointments Provider Department Dept Phone 12/23/2019 1:30 PM Alfreda Salas APRN Neurosurgery at [facility] Arrive at: Home [phone] Please do not come in for this visit. Your provider will call you at the number you provided. 12/26/2019 9:40 AM Merlin Sanchez MD Cardiology at [facility] Arrive at: Home [phone] Please do not come in for this visit. Your provider will call you at the number you provided. 12/30/2019 3:40 PM Gretchen Yoon MD Cardiology at [facility] Arrive at: Home [phone] Please do not come in for this visit. Your provider will call you at the number you provided. Future Orders Complete By Expires Referral to Cardiac Rehab [GOI039 Custom] As directed Process Instructions: If no progress note charted, please enter Clinical details in comments. Scheduling Instructions: Questions: My question or request is: STEMI. Cardiac rehab at [facility] Referral to [facility] [REF43 Custom] As directed Process Instructions: If no progress note charted, please enter Clinical details in comments. Scheduling Instructions: Questions: My question or request is: patient with inferior stemi with history of statin allergy (rash) - please evaluate for psck9 inhibitor. Referral to Home Health - at DISCHARGE [CNI4342 CPT(R)] As directed Process Instructions: Scheduling Instructions: Comments: DOCUMENTATION FOR VNA SERVICES PATIENT'S LOCATION: [address] [address] (home) Consumer Educator's Name: Self In discussion with the attending physician, it is certified that this patient is under his/her care and that MD, or an EMERGENCY MEDICAL DISPATCHER, DRIFT MINER, or PA who is working directly with him/her, had a qowq-vl-ileg encounter that meets the physician jnuv-ta-htdn encounter requirements with this patient on 12/07/2019. [...] CARE AGENCY: [facility], PHONE: [phone] FAX: [phone] Start of care: 24-48 hours after hospital [...] MD [address] / [place] [address] All A agencies which cover the area [...] contact info: PCP Discharge References/Attachments Atrial Fibrillation (Bermudian) Cardiac Rehabilitation (Bermudian) Heart Failure (Bermudian) Heart Failure: Limiting Sodium (Bermudian) Hemorrhagic Stroke: General Info (Bermudian) Smoking: Stopping (Bermudian) Stroke Rehabilitation: General Info (Bermudian) Pulmonary Embolism (Bermudian) Riki Stevens MD PGY-3, Internal Medicine Cardiology S2, #2802 Associated attestation - Shaka Lagos, Paris Lockett MD - 12/09/2019 4:44 PM EDT Cardiology Attending Discharge Addendum I was the assigned attending bead forming machine operator for this clinical encounter. For [...] complications include novel onset, paroxysmal atrial fibrillation [[id number]: 5] & L-sided diplopia with potential hemineglect [...] contact information: Paris Matt MD MPH [address] [address] (office); Pager #[phone] Email: [email or web address] documented in this encounter Discharge Instructions Patient InstructionsFiRiki de ejsus MD - 12/02/2019 9:56 AM EDT Images from the original note were not included. Why you were hospitalized: You had a heart attack. You received clot-busting medications at another hospital and then at [facility] you had a stent placed in a [...] FOR ONE MONTH AND THEN STOP. Your bead forming machine operator may tell you to start this medication again after one year. Clopidogrel (Plavix) 75 mg daily - This medication will help prevent clots from forming in your blood, which will help protect the stent that was placed in your heart vessel. TAKE THIS FOR ONE YEAR ANDTHEN DISCUSS WITH YOUR MAGENTO DEVELOPER WHETHER TO STOP. Amiodarone 400mg twice [...] follow up: Your primary care provider and bead forming machine operator will manage your blood thinner (apixaban). You do not need lab monitoring of this medication. Diet: Please consume a healthy diet low in cholesterol Follow up Appointments: 12/10/2019 at 3:10PM with PCP Angel Luis Lott Future Appointments Date Time Provider Department Center 12/23/2019 1:30 PM Alfreda Salas APRN [facility] [id number] [facility] 12/26/2019 9:40 AM Merlin Sanchez MD [facility] CARD 4A [facility] 12/30/2019 3:40 PM Gretchen Yoon MD [facility] CARD 4A [facility] Future Appointments and Orders Future Appointments and Orders Future Appointments Provider Department Dept Phone 12/23/2019 1:30 PM Alfreda Salas APRN Neurosurgery at [facility] Arrive at: Home [phone] Please do not come in for this visit. Your provider will call you at the number you provided. 12/26/2019 9:40 AM Merlin Sanchez MD Cardiology at [facility] Arrive at: Home [phone] Please do not come in for this visit. Your provider will call you at the number you provided. 12/30/2019 3:40 PM Gretchen Yoon MD Cardiology at [facility] Arrive at: Home [phone] Please do not come in for this visit. Your provider will call you at the number you provided. Future Orders Complete By Expires Referral to Cardiac Rehab [[id number] Custom] As directed Process Instructions: If no progress note charted, please enter Clinical details in comments. Scheduling Instructions: Questions: My question or request is: STEMI. Cardiac rehab at [facility] Referral to [facility] [REF43 Custom] As directed Process Instructions: If no progress note charted, please enter Clinical details in comments. Scheduling Instructions: Questions: My question or request is: patient with inferior stemi with history of statin allergy (rash) - please evaluate for psck9 inhibitor. Referral to Home Health - at DISCHARGE [TGM6961 CPT(R)] As directed Process Instructions: Scheduling Instructions: Comments: DOCUMENTATION FOR VNA SERVICES PATIENT'S LOCATION: [address] [phone] (home) Consumer Educator's Name: Self In discussion with the attending physician, it is certified that this patient is under his/her care and that MD, or an EMERGENCY MEDICAL DISPATCHER, DRIFT MINER, or PA who is working directly with him/her, had a lfsc-wb-pxbo encounter that meets the physician jqdr-nf-kspf encounter requirements with this patient on 12/07/2019. [...] CARE AGENCY: [facility], PHONE: [phone] FAX: [phone] Start of care: 24-48 hours after hospital [...] MD [address] / [place] [address] All A agencies which cover the area [...] info: PCP Your PCP: France Lam MD [phone] For questions regarding this document or issues relating to this hospitalization on the Cardiology Service, please contact your inpatient physician through the [facility] Nibbler Operator . Issues after hours and on weekends will be handled by the Jira Administrator on-call. Patient Instructions: Neurology Your Diagnosis: Left [...] follow-up appointment in the neurology clinic at [facility]. See below for the appointment time. If you do not have an appointment, you will be called with a time/date for this appointment. ??? Primary Care Provider: Please follow up with your Primary Care Provider within one to 2 weeks ofdischarge. AttachmentsThe following attachments cannot be sent through Care Everywhere. Atrial Fibrillation (Bermudian)Cardiac Rehabilitation (Bermudian)Heart Failure (Bermudian)Heart Failure: Limiting Sodium (Bermudian)Hemorrhagic Stroke: General Info (Bermudian)Smoking: Stopping (Bermudian)Stroke Rehabilitation: General Info (Bermudian)Pulmonary Embolism (Bermudian)documented in this encounter Medications at Time of [...] consulted in the interim. Vikash Rodriguez Pager: [phone] Paris Dodd MD - 12/08/2019 8:57 AM [...] complications include novel onset, paroxysmal atrial fibrillation [SPC8HI5KVRA: 5] & L-sided diplopia with potential hemineglect [...] consulted in the interim. Vikash Rodriguez Pager: [phone] Paris Dodd MD - 12/07/2019 9:55 AM [...] complications include novel onset, paroxysmal atrial fibrillation [MBN8DU3UHFQ: 5] & L-sided diplopia with potential hemineglect [...] complications include novel onset, paroxysmal atrial fibrillation [WRS0PF4ORWB: 5] & L-sided diplopia with potential hemineglect [...] complications include novel onset, paroxysmal atrial fibrillation [DSA2NK6XURM: 5] & L-sided diplopia with potential hemineglect [...] today; additional complications include paroxysmal atrial fibrillation [IJW8YD4SIRQ: 4] c/b possible cardioembolic stroke, ICH from [...] length from neck/greatest diameter to back wall: [place] 91, CAU 13: 19 mm CORTES 1, [...] a non-culprit artery. S/P DESx3 in the fximtqrv-jg-wvxuzd RCA. Aspiration thrombectomy performed, and integrellin bolus [...] complications include novel onset, paroxysmal atrial fibrillation [MWF3QB8PSDO: 5] & L-sided diplopia with potential hemineglect [...] R occipital cardioembolic stroke #Paroxysmal Afib with CY6TYWCB3C score of 5 #New segmental bilateral PEs [...] Glasgow MD PGY1, Internal Medicine Cardiology S2, #3490 Associated attestation - Paris Dodd MD - 12/05/2019 2:59 PM EDT I was the assigned attending bead forming machine operator for this clinical encounter. For [...] 10:36 AM EDT Office of Care Management(OCM)/Lead Press Operator(CM)/Discharge Planning Service: Cardiology S2 team CM Bernie Alexander,RN,BSN,MA,ACM pgr [phone] Reviewed record and in Cardiology Rounds with MD team,CMs, dental laboratory manager, MANAGER OF [employer]IRES SALES. Pt is anticipated ready for d/c later [...] AD to his PCP and to any [facility] appt for each to have on file. [...] complications include novel onset, paroxysmal atrial fibrillation [SRB8FC1ZUWD: 4] & L-sided diplopia with potential hemineglect [...] a non-culprit artery. S/P DESx3 in the ongelysn-kc-gavesi RCA. Aspiration thrombectomy performed, and integrellin bolus [...] complications include novel onset, paroxysmal atrial fibrillation [OTT8KP8AXAV: 5] & L-sided diplopia with potential hemineglect [...] R occipital cardioembolic stroke #Paroxysmal Afib with MA9FOGNZ7G score of 5 - No anticoagulation for [...] Glasgow MD PGY1, Internal Medicine Cardiology S2, #4645 I have seen the patient and reviewed [...] in my clinic. Gretchen Yoon MD Pager [phone] Derian Pascual RN - 12/03/2019 9:29 AM [...] None Electronically signed: Derian Pascual RN, Lead Press Operator Pgr: [phone] 12/03/2019 9:29 AM Gretchen [...] complications include novel onset, paroxysmal atrial fibrillation [NSR0CQ8TKLI: 4] & L-sided diplopia with potential hemineglect [...] a non-culprit artery. S/P DESx3 in the huvyytpu-bz-xfcjai RCA. Aspiration thrombectomy performed, and integrellin bolus [...] complications include novel onset, paroxysmal atrial fibrillation [JBZ9UK6ZAVB: 5] & L-sided diplopia with potential hemineglect [...] MRI showed possible cardioembolic stroke #Afib with LN2VGERE1H score of 5 - Stroke Team Consulted; [...] Anticoagulation/Arrhythmia # Novel Onset, Paroxsymal Atrial Fibrillation [[id number]: 5] - Hold off anticoagulation for at [...] w straight cath prn # Nutrition - [facility] Diet, 2g Na. -- Hematology/Oncology-- # Mild [...] Glasgow MD PGY1, Internal Medicine Cardiology S2, #5443 I have seen the patient and reviewed the resident's above history and I agree with the details as written. The assessment and plan were formulated in discussion with me and I agree with them as documented. Gretchen Yoon MD Pager [phone] Raul Hein RN - 12/03/2019 5:55 AM [...] Negative mcL Appearance UA Clear Clear Spec Brogue UA 1.026 1.006 - 1.030 Color UA [...] PGY3 Neurology Resident 12/01/2019 Vascular Neurology Pager [phone] Neurology Attending Attestation I evaluated the patient [...] documented. Deepthi Roman MD Vascular Neurology Standard [facility] Swallow Screen: This screen is to be [...] diet as medical provider deems appropriate. Consider WAX CUTTER consult for full evaluation and diet recommendations. [...] complications include novel onset, paroxysmal atrial fibrillation [RPW8JL5JUUV: 4] & L-sided diplopia with potential hemineglect [...] a non-culprit artery. S/P DESx3 in the rfgmsjmd-xw-wmosgw RCA. Aspiration thrombectomy performed, and integrellin bolus [...] complications include novel onset, paroxysmal atrial fibrillation [VHW3TZ4YSBC: 5] & L-sided diplopia with potential hemineglect [...] Anticoagulation/Arrhythmia # Novel Onset, Paroxsymal Atrial Fibrillation [SVP6QG5QVFQ: 5] - Hold off anticoagulation - pending [...] tamsulosin d/t low BP. # Nutrition - [facility] Diet -- Hematology/Oncology-- # Mild Thrombocytopenia, unclear [...] Glasgow MD PGY1, Internal Medicine Cardiology S2, #4427 I have seen the patient and reviewed [...] the ICU team. Gretchen Yoon MD Pager [phone] Natalia Claros APRN - 12/02/2019 8:38 AM [...] - We are signing off. Please page [phone] with any questions or concerns. For questions please call NS[facility] pager [phone] Natalia Claros APRN 12/02/2019 8:38 AM Clinical Documentation Improvement: Active Hospital Problems Diagnosis ??? Acute ST elevation myocardial infarction (STEMI) of inferior wall ??? Intracranial hemorrhage ??? Hyperlipidemia ??? Tobacco abuse ??? Claudication from peripheral vascular disease, left Resolved Hospital Problems No resolved problems to display. Tello Hsu, [employer] FIELD SUPERVISOR - 12/02/2019 2:06 AM EDT 12/01/192009 [...] Scan in afternoon. Upon arrival back in [facility] placed on low flow NC [...] complications include novel onset, paroxysmal atrial fibrillation [GAM4YU0GMGL: 4] & L-sided diplopia with potential hemineglect for which CVA evaluationto be pursued. Active Problems/Subjective: - 11/28: admitted for inferior STEMI, RV failure requiring pressor - got lytics, aspirin and plavix load, heparin gtt, and eptifibatide. 3 MACARIO stents to RCA. Chandler cath - low wedge & CVP so [...] a non-culprit artery. S/P DESx3 in the jlomvqej-ww-xxykhn RCA. Aspiration thrombectomy performed, and integrellin bolus [...] complications include novel onset, paroxysmal atrial fibrillation [EVG1BD6WDGD: 4] & L-sided diplopia with potential hemineglect [...] Anticoagulation/Arrhythmia # Novel Onset, Paroxsymal Atrial Fibrillation [WIN1ZT8YINP: 4] - Obtain: TTE - Pending CVA [...] tamsulosin d/t low BP. # Nutrition - [facility] Diet -- Hematology/Oncology-- # Mild Thrombocytopenia, unclear [...] MD, PGY1 PGY3, Internal Medicine Cardiology S2, #5118 I have seen the patient and reviewed [...] down the line. Gretchen Yoon MD Pager [phone] ?? Gretchen Yoon MD Pager [phone] Natalia Claros APRN - 12/01/2019 1:33 AM [...] per primary team For questions please call [facility] pager [phone] Natalia Claros APRN 12/01/2019 7:42 AM Clinical Documentation Improvement: Active Hospital Problems Diagnosis ??? Acute ST elevation myocardial infarction (STEMI) of inferior wall ??? Intracranial hemorrhage ??? Hyperlipidemia ??? Tobacco abuse ??? Claudication from peripheral vascular disease, left Resolved Hospital Problems No resolved problems to display. Tello Hsu, OIL WELL SERVICES FIELD SUPERVISOR - 11/30/2019 8:44 PM EDT Respiratory [...] EDT Narrative:Visited in response to request for Coal Grader services. Pt was awake, alert, oriented and in bed. Assessment:Patient coping positively with stresses of illness/hospitalization at this time. Pt says that he is hoping to get better and pt is living with and has children and grandchildren. Pt haspurpose of life and has reason to get getter and to be with family. Outcome: Provided emotional and spiritual support and encouraging presence. Coal Grader services accepted.Conversation to build trusting relationship.Provided pastoral [...] complications include novel onset, paroxysmal atrial fibrillation [[id number]: 4] & L-sided diplopia with potential hemineglect for which CVA evaluationto be pursued. Active Problems/Subjective: - Overnight, CVP < 12 for which a total of 1 L IVF provided - Today AM, patient complains of subjectively reported, left-sided hemineglect with floaters and diplopia [see: exam]. - Otherwise, c/o neck pain 2/2 R IJ Chandler & L radial A line. Otherwise, denies [...] a non-culprit artery. S/P DESx3 in the rmmitfbp-tj-vossbg RCA. Aspiration thrombectomy performed, and integrellin bolus [...] complications include novel onset, paroxysmal atrial fibrillation [[id number]: 4] & L-sided diplopia with potential hemineglect [...] Anticoagulation/Arrhythmia # Novel Onset, Paroxsymal Atrial Fibrillation [[id number]: 4] - Obtain: TTE to confirm rhythm [...] tamsulosin d/t low BP. # Nutrition - [facility] Diet -- Hematology/Oncology-- # Mild Thrombocytopenia, unclear [...] MD, PGY3 PGY3, Internal Medicine Cardiology S2, #[id number] I have seen the patient and reviewed [...] down the line. Gretchen Yoon MD Pager [phone] Paola Capps RN - 11/30/2019 6:57 AM EDT PT still requiring 4 of levo, several attempts to titrate down (maps in 70;s) But maps would drop toless than 65. Pt very restless in bed Raising and lowering head denies pain . Integrillin stopped [id number] when bottle complete , urine tea colored [...] PCP: France Lam MD PCP phone #: [phone] Control Room Tender: None ID/Chief Complaint: Chest pain History of [...] and Compazine. He was transferred directly to [facility] via [facility] for further management. Patient had an emergent PCI with 3 MACARIO stents placed to his RCA, with mild disease of LCX (report pending) at [facility]. He was found to be persistently hypotensive requiring Levo up to 10mcg/min. He was transferred to [facility] after the cath procedure. Bedside RHC showed CI 2.12, PAWP 11, PAP 38/15 indicating hypovolemic state. He received 1L bolus of NS with improvement of his blood pressure to 124/61. History of PAD, HLD - had side reactions to statins - so taking niacin and red rye grain. Chronic active smoker with more than 65 pack years. Family history of CA in father and two uncles. He's takingbaby [...] ??? Penicillins Pt doesn't remember reaction ??? Xrpdmoq-Pnd-Kfi Reductase Inhibitors Stiff neck, upset stomach, back pain Family History: Mother: Father: CA 2 Uncles with MIs Social History: Tobacco: Current active smoker 1 ppd. 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 Vitals: Last value Range last [...] in the last 7068 hours. Invalid input(s): [id number] Heme: No results for input(s): LDH, HAPTOGLOBIN, [...] OSH prior to transfer and PCI at [facility]. Massive inferior STEMI with troponin level 20, currently in CVCC due to pressor requirement. BedsideRHC demonstrated evidence of elevated right sided heart failure, but his wedge was wnl. He received 1L bolus with improvement of his blood pressure and reduction of his pressor requirement. PLAN: Admit to Cardiology, S2 Team Pager # [phone] #Inferior STEMI, LEYLA [phone] - Resolving EKG [...] inferior STEMI s/p lytic therapy. Transferred to [facility] and underwent successful PCI of the RCA with MACARIO x3. Gretchen Yoon MD Pager [phone] documented in this encounter Procedure Notes Juventino [...] to the planned procedure. Hand Hygiene: The radio interference supervisor did perform hand hygiene prior to arterial [...] a suspected line-associated infection. Location of Procedure: [facility] Risks and Benefits: The risks [...] to the planned procedure. Hand Hygiene: The radio interference supervisor did perform hand hygiene prior to line [...] side:right An Introducer (PSI Kit) was used. [place]. Insertion Side: right. Insertion Site: internal jugular. Catheter Details: Number of Lumens: 1 Catheter Type: heparin-coated The line was placed over a guidewire. Confirmation of Venous Placement: Venous placement was confirmed by transducing the pressure. Introducer Insertion Attempts: 1 Comments: Floating the Chandler-Mo Catheter Attempts: 1 Comments: Sterile Dressing: Biopatch [...] better pt back in SR. Please page [phone] for any more cares or concerns Plan [...] complications include novel onset, paroxysmal atrial fibrillation [[id number]: 5]& L-sided diplopia with potential hemineglect for [...] Total Evaluation Minutes, Occupational Therapy: 10 Pager: [phone] FRANCINE Nuñez Occupational Therapy Rehabilitation Department Plan [...] complications include novel onset, paroxysmal atrial fibrillation [[id number]: 5] & L-sided diplopia with potential hemineglect [...] hand rails). Baseline Mobility: Independent. Drives. Shares pouako kura kaupapa maori with his , however her mobility is [...] plan as stated. Time IN / OUT: 2877-9051 Total Evaluation Minutes, Physical Therapy: 15(gtx1) Barbara Baldwin, PT Pager: [phone] Physical Therapy Inpatient Rehabilitation Department Plan of [...] he receives all he needs through the [facility]. Consult refused. Romain Tran, MSN, RN-, [facility] Tobacco Airline Hostess [facility] Pager #[phone] Plan of Care - Romain Oglesby OT [...] complications include novel onset, paroxysmal atrial fibrillation [[id number]: 5] & L-sided diplopia with potential hemineglect [...] and measurable assessment of functional outcome. Pager: [phone] ROMAIN OGLESBY OT 12/03/2019 Occupational Therapy Rehabilitation [...] in an outpatient cardiac rehabilitation program at [facility] was discussed. Patient agrees to a referral to this program. His has been a cardiac rehab patient at [facility] and he is familiar with the program. [...] complications include novel onset, paroxysmal atrial fibrillation [[id number]: 5] & L-sided diplopia with potential hemineglect [...] hand rails). Baseline Mobility: Independent. Drives. Shares pouako kura kaupapa maori with his , however her mobility is [...] in this evaluation. Time IN / OUT: 0777-4706 Total Evaluation Minutes, Physical Therapy: 25(eval, gtx1) Barbara Baldwin, PT Pager: [phone] Physical Therapy Inpatient Rehabilitation Department Consult Note [...] Please contact JOHANNA NOBLES RN on pager [phone] or the wound care team at [phone] or pager [phone] skin and wound care concerns or questions. [...] making law. Any patient receiving carspousee at [facility] must abide by [place] law. The hierarchy [...] Insurance: N/A Prescription Coverage: Yes Preferred Pharmacy: [place], [place] Other: No Primary Care Provider: France Lam MD [phone] Patient/Caregiver Goals of Treatment: Return home Potential Needs for Transition of Care: Rehab/SNF: Based on discussions with the multi-disciplinary healthcare team, the patient would benefit from SNF level of care at discharge. ?? I have met with the patient to discuss discharge planning needs. I have provided the [facility], Officeof Care Management letter from the Balance Wheel Motion Inspector pertaining to rehab referrals. I have also provided a letter describing our affiliations within the [facility] and educated them about their [...] patient [facility]: ?? [facility] [address] [place] [id number] ?? [address]. [address] , [place] [address] Note routed to Schedule Checker who will communicate referrals to facilities and provide any required information. Home Health: If therapies recommend home w/ VNA, the patient has been provided a list of Home Health Agencies/DME vendors which serve their preferred geographic area. A letter describing our affiliations was reviewed with them and they were educated about their right to choose where referrals are placed. Patient requests referral to [facility] [place]. PHONE: [phone] FAX: [phone] Referral routed to the Schedule Checker for matching with agency/vendor and to provide [...] Insured w/ Medicare. Gets medications filled at [facility] in [place], [place]. Son to transport at discharge Plan: Discharge dispo depending on patient's physical recovery; SNF vs home w/ VNA. A member of the Care Management team will continue to monitor progress, follow for continuity of care and assist with transition of care planning. Derian Pascual RN Pager: [phone] Plan of Care - Estefani Baeza RN [...] ??? Penicillins Pt doesn't remember reaction ??? Hrsrsvc-Vld-Aun Reductase Inhibitors Stiff neck, upset stomach, back [...] noncontrast head CT and CT of the [place] at 1600 hrs. We will [...] vision concerning for stroke. Patient presented to [facility] in transfer for a STEMI after presenting [...] ??? Penicillins Pt doesn't remember reaction ??? Gdudmri-Opa-Wyr Reductase Inhibitors Stiff neck, upset stomach, back [...] file Gets together: Not on file Attends yazidi service: Not on file Active member of [...] L Elbow flexion 5/5 R, 5/5 L Water Purifier Operator LE: 5/5 R, 5/5 L Hip [...] PGY3 Neurology Resident 11/30/2019 Vascular Neurology Pager [phone] Standard [facility] Swallow Screen: This screen is to be [...] diet as medical provider deems appropriate. Consider WAX CUTTER consult for full evaluation and diet recommendations. [...] hours. Evan Mejia MD Department of Neurology [facility] Brief Op Note - Gretchen Yoon MD - 11/29/2019 8:38 PM EDT Brief Operative Note Patient Name: Angel Luis Salinas : [id number] MR#: [id number] Case Date: 11/29/2019 Surgeon: Surgeon(s) and Role: * Gretchen Yoon MD - Primary * Aidan Ward MD - Fellow Preoperative diagnosis: Inferior STEMI Postoperative diagnosis: Inferior STEMI Procedure(s) (LRB): CARDIAC CATHETERIZATION (N/A) Findings: Discrete 90% stenosis in the prox-to-mid RCA. Severe diffuse disease in the distal vessel. Discrete LCX stenosis in a non-culprit artery. S/P DESx3 in the yfvhpnnm-hb-cbjjqt RCA. Aspiration thrombectomy performed, and integrellin bolus x2+ infusion. Nicardipine given during case due to intermittent sluggish flow. Complications: None documented in this encounter Plan of Treatment Upcoming Encounters Date Type Specialty Care Team Description 06/30/2022 Office Visit Endocrinology Alan Terrell MD [facility] [address] ENDOCRINOLOGY [place], [place] [address] (Wo rk) Scheduled Referrals Name [...] athologist Signature Potassium 3.9 3.5 - 5.0 [facility] DOV mmol/L [facility] Comment: Please note: ??Patients [...] Organization Address City/State/ZIP Code Phon e Number [place] [id number] (ABNORMAL) Hemogram (12/08/2019 12:39 PM EDT) Analysis Performed At Patho logist Time Signature WBC 9.9 (H) 4.0 - 9.5 [place] D[place] x10(3)/[facility] LABORATORY RBC 4.51 (L) 4.58 - [place] 5.54 [facility] x10(6)/[facility] LABORATORY Hemoglobin 13.0 (L) 13.7 - [place] 16.5 gm/dL [facility] Hematocrit 40.5 40.5 - [place] 48.5 % [facility] MCV 89.8 82.9 - [place] 93.1 [facility] LABORATORY MCH 28.8 27.5 - [place] 32.1 pg [facility] MCHC 32.1 32.0 - [place] 35.7 gm/dL [facility] Platelets 214 145 - 357 [place] x10(3)/[facility] LABORATORY RDWSD 49.2 (H) 36.0 - [place] 45.0 [facility] LABORATORY RDWCV 15.1 (H) 11.4 - [place] ODV 13.8 % [facility] MPV 12.1 7.6 - 12.9 [place] DOV [facility] LABORATORY nRBC % Auto 0.0 % [facility]OR[facility]ORY nRBC Abs Auto 0.000 0.000 - [place] 0.000 [facility] x10(3)/[facility] LABORATORY Specimen Anatomical Collection Method Collection Time Receive d Time (Source) Location / / Volume Laterality Blood specimen 12/08/2019 12:39 0 (specimen) PM EDT 12:47 PM EDT Resulting Agency Comment Spec In Lab Gretchen Yoon MD HEMATOLOGY ORDERABLES Performing Organization Address City/[facility]/ZIP Code Phon e Number [address] Hepatic Function Panel (12/08/2019 6:28 AM EDT) P athologist Signature Total Protein 6.6 6.1 - 8.0 [facility] ODV gm/dL [facility] Albumin 3.2 3.2 - 5.2 [facility] DOV gm/dL [facility] AST 18 0 - 39 [facility] ALT 13 0 - 55 [facility] DOV unit/L [facility] Alk Phos 64 40 - 130 [facility] Total 0.4 0.2 - 1.3 [facility] Bilirubin mg/dL [facility] Bili, Direct 0.1 0.0 - 0.3 [facility] DOV mg/dL [facility] Specimen Anatomical Collection Method Collection Time Receive d Time (Source) Location / / Volume Laterality Blood specimen Venous Draw / 12/08/2019 6:28 AM 2019 6:36 (specimen) Unknown EDT AM EDT Resulting Agency Comment Spec In Lab Riki Stevens MD CHEMISTRY ORDERABLES Performing Organization Address City/State/ZIP Code Phon e Number [place], [place] [id number] [place] [address] (ABNORMAL) TSH (12/08/2019 6:28 AM EDT) P athologist Signature TSH 5.27 (H) 0.27 - 4.20 [place] [facility] mcIU/mL [facility] Specimen Anatomical Collection Method Collection Time Receive d Time (Source) Location / / Volume Laterality Blood specimen Venous Draw / 12/08/2019 6:28 AM 2019 6:36 (specimen) Unknown EDT AM EDT Resulting Agency Comment Spec In Lab Darrell Glasgow MD CHEMISTRY ORDERABLES Performing Organization Address City/State/[place] [address] Potassium (12/08/2019 6:28 AM EDT) P athologist Signature Potassium 4.2 3.5 - 5.0 [facility] mmol/L [facility] Comment: Please note: ??Patients [...] Lagos MD CHEMISTRY ORDERABLES Performing Organization Address City/[facility]/[place] [address] (ABNORMAL) Differential, Automated (12/08/2019 12:43 AM EDT) Patholo gist Method Time Signature Neutrophils % 60.7 % [facility] Neutr Abs (ANC) 6.81 (H) 1.70 - [facility] 6.10 [facility] x10(3)/[facility] LABORATORY Lymphocytes % 23.4 % [facility] LABORATORY Lymphocytes Abs 2.6 0.9 - 3.2 [facility] x10(3)/[facility] LABORATORY Monocytes % 10.0 % [facility] LABORATORY Monocyte Abs 1.1 (H) 0.3 - 0.9 [facility] x10(3)/[facility] LABORATORY Eosinophils % 3.7 % [facility] LABORATORY Eosinophils Abs 0.4 0.0 - 0.4 [facility] x10(3)/[facility] LABORATORY Basophils % 1.2 % [facility] LABOR[facility]ORY Basophils Abs 0.1 0.0 - 0.1 [facility] x10(3)/[facility] LABORATORY Immature Gran % 1.00 % [place] [...] Abs 0.11 (H) 0.00 - 0.04 x10(3)/[facility] LABORATORY Specimen Anatomical Collection Method Collection Time Receive d Time (Source) Location / / Volume Laterality Blood specimen 12/08/2019 12:43 0 (specimen) AM EDT 12:52 AM EDT Resulting Agency Comment Spec In Lab Riki Stevens MD HEMATOLOGY ORDERABLES Performing Organization Address City/State/ZIP Code Phon e Number [place] [phone]OS[address] (ABNORMAL) Hemogram (12/08/2019 12:43 AM EDT) Analysis Performed At Patho logist Time Signature WBC 11.2 (H) 4.0 - 9.5 [facility] x10(3)/[facility] LABORATORY RBC 4.46 (L) 4.58 - [facility] 5.54 [facility] x10(6)/[facility] LABORATORY Hemoglobin 13.1 (L) 13.7 - [facility] 16.5 gm/dL [facility] Hematocrit 40.5 40.5 - [facility] DOV 48.5 % [facility] LABORATORY MCV 90.8 82.9 - [facility] 93.1 [facility] LABORATORY MCH 29.4 27.5 - [place] 32.1 pg [facility] LABORATORY MCHC 32.3 32.0 - [facility] 35.7 gm/dL [facility] Platelets 215 145 - 357 [facility] x10(3)/[facility] LABORATORY RDWSD 49.8 (H) 36.0 - [place] 45.0 [facility] LABORATORY RDWCV 15.2 (H) 11.4 - [facility] DOV 13.8 % [facility] LABORATORY MPV 12.3 7.6 - 12.9 [facility] LABORATORY nRBC % Auto 0.0 % [facility] LABORATORY nRBC Abs Auto 0.000 0.000 - [place] 0.000 [facility] x10(3)/[facility] LABORATORY Specimen Anatomical Collection Method Collection Time Receive d Time (Source) Location / / Volume Laterality Blood specimen 12/08/2019 12:43 0 (specimen) AM EDT 12:52 AM EDT Resulting Agency Comment Spec In Lab Riki Stevens MD HEMATOLOGY ORDERABLES Performing Organization Address City/State/ZIP Code Phon e Number [address] Magnesium (12/08/2019 12:43 AM EDT) P athologist Signature Magnesium 1.01 0.69 - 1.07 [facility] mmol/L [facility]ORY Specimen Anatomical Collection Method Collection Time Receive d Time (Source) Location / / Volume Laterality Blood specimen 12/08/2019 12:43 0 (specimen) AM EDT 12:52 AM EDT Resulting Agency Comment Spec In Lab Gretchen Yoon MD CHEMISTRY ORDERABLES Performing Organization Address City/State/ZIP Code Phon e Number [address] (ABNORMAL) BMP w/fasting Glucose (12/08/2019 12:43 AM EDT) P athologist Signature Glucose 106 (H) 65 - 99 [facility] Fasting mg/dL [facility] Comment: ?Fasting* Glucose Interpretive [...] of Diabetes Mellitus, Position Statement from the [place] [employer]. ??Diabete s Care, Volume 33, Supplement 1, Jul 2009 BUN 14 10 - 20 mg/dL [facility] Creatinine 1.16 0.80 - [...] Gap 16 (H) 5 - 15 mmol/L [facility] Calcium 8.9 8.5 - [...] of body mass or the acutely ill. http://[employer]/[facility]LLnkMediaInterface [place] eGFR 72 >=60 mL/min/1.73 m?? [facility] Comment: The eGFR was calculated using the CKD-EP I equation. As with all creatinine based estimates of kidney function, eGFR values calculated with the CKD-EPI equation are not accurate in patients wi th acute kidney failure, extremes of body mass or the acutely ill. http://[employer]/[facility] STIL[facility]LLnkf Specimen Anatomical Collection Method Collection Time Receive d Time (Source) Location / / Volume Laterality Blood specimen 12/08/2019 12:43 0 (specimen) AM EDT 12:52 AM EDT Resulting Agency Comment Spec In Lab Gretchen Yoon MD CHEMISTRY ORDERABLES Performing Organization Address [facility]/[place] [address] Heparin (unfractionated) Level (12/08/2019 12:43 AM EDT) athologist Signature Heparin UFH 0.60 IU/mL [facility] LABORATORY Comment: Guidelines for therapeutic [...] Lagos MD HEMATOLOGY ORDERABLES Performing Organization Address [facility]/[place] [address] [facility] [address] Potassium (12/07/2019 8:39 PM EDT) athologist Signature Potassium 4.1 3.5 - 5.0 [facility] mmol/L [facility] Comment: Please note: ??Patients [...] Lagos MD CHEMISTRY ORDERABLES Performing Organization Address City/[facility]/[place] [address] Potassium (12/07/2019 4:02 PM EDT) P athologist Signature Potassium 4.0 3.5 - 5.0 [facility] mmol/L [facility] Comment: Please note: ??Patients [...] Yoon MD CHEMISTRY ORDERABLES Performing Organization Address City/[facility] [place] [address] (ABNORMAL) Hemogram (12/07/2019 4:02 PM EDT) Analysis Performed At Patho logist Time Signature WBC 17.4 (H) 4.0 - 9.5 [place] D[facility] x10(3)/[facility] LABORATORY RBC 4.58 4.58 - [employer] UnitedDOV 5.54 [facility] x10(6)/[facility] LABORATORY Hemoglobin 13.5 (L) 13.7 - [place] [facility] 16.5 gm/dL [facility] Hematocrit 40.8 40.5 - [place] [facility] 48.5 % [facility]OR[facility]ORY MCV 89.1 82.9 - [place] [facility] 93.1 fL [facility]ORY MCH 29.5 27.5 - [place] D[facility] 32.1 [facility] LABORATORY MCHC 33.1 32.0 - [place] MONAE 35.7 gm/dL [facility] Platelets 238 145 - 357 [facility] x10(3)/[facility] LABORATORY RDWSD 48.8 (H) 36.0 - [place] MONAE 45.0 [facility] LABORATORY RDWCV 15.0 (H) 11.4 - [facility] DOV 13.8 % [facility] LABORATORY MPV 12.2 7.6 - 12.9 [facility] LABORATORY nRBC % Auto 0.0 % [facility] LABORATORY nRBC Abs Auto 0.000 0.000 - [place] D[facility] 0.000 [facility] x10(3)/[facility] LABORATORY Specimen Anatomical Collection Method Collection Time Receive d Time (Source) Location / / Volume Laterality Blood specimen 12/07/2019 4:02 PM 020 4:08 (specimen) EDT PM EDT Resulting Agency Comment Spec In Lab Gretchen Yoon MD HEMATOLOGY ORDERABLES Performing Organization Address City/State/[place] [address] EKG 12 Lead (12/07/2019 [...] (Bezet) Calculated P -12 degrees MUSE SYSTEM [place] Calculated R 10 degrees MUSE SYSTEM [place] Calculated T -138 degrees MUSE SYSTEM [place] INTERPRETATION Supraventricular tachycardia MUSE SYSTEM Low voltage [...] athologist Signature Potassium 4.2 3.5 - 5.0 [facility] mmol/L [facility] Comment: Please note: ??Patients [...] Organization Address City/State/[place] [address] Heparin (unfractionated) Level (12/07/2019 11:43 AM EDT) athologist Signature Heparin UFH 0.59 IU/mL [facility] LABORATORY Comment: Guidelines for therapeutic [...] [place] MD HEMATOLOGY ORDERABLES Performing Organization Address City/[facility]/ZIP Code Phon e Number [place] [id number] HOSPITAL LAB[address]ATORY Drive Heparin (unfractionated) Level (12/07/2019 5:20 AM EDT) P athologist Signature Heparin UFH 0.53 IU/mL [facility] LABORATORY Comment: Guidelines for therapeutic [...] [place] MD HEMATOLOGY ORDERABLES Performing Organization Address City/[facility]/ZIP Code Phon e Number [address] (ABNORMAL) Differential, Automated (12/07/2019 5:20 AM EDT) Patholo gist Method Time Signature Neutrophils % 62.4 % [facility] LABORATORY Neutr Abs (ANC) 5.46 1.70 - [facility] 6.10 [facility] x10(3)/[facility] LABORATORY Lymphocytes % 20.3 % [facility] LABORATORY Lymphocytes Abs 1.8 0.9 - 3.2 [facility] x10(3)/[facility] LABORATORY Monocytes % 11.0 % [facility] LABORATORY Monocyte Abs 1.0 (H) 0.3 - 0.9 [facility] x10(3)/[facility] LABORATORY Eosinophils % 4.5 % [facility] LABORATORY Eosinophils Abs 0.4 0.0 - 0.4 [facility] x10(3)/[facility] LABORATORY Basophils % 0.9 % [facility] LABORATORY Basophils Abs 0.1 0.0 - 0.1 [facility] x10(3)/[facility] LABORATORY Immature Gran % 0.90 % [...] Abs 0.08 (H) 0.00 - 0.04 x10(3)/[facility] LABORATORY Specimen Anatomical Collection Method Collection Time Receive d Time (Source) Location / / Volume Laterality Blood specimen 12/07/2019 5:20 AM 020 5:37 (specimen) EDT AM EDT Resulting Agency Comment Spec In Lab Riki Stevens MD HEMATOLOGY ORDERABLES Performing Organization Address City/State/[place] [address] (ABNORMAL) Hemogram (12/07/2019 5:20 AM EDT) Analysis Performed At Patho logist Time Signature WBC 8.7 4.0 - 9.5 [facility] x10(3)/[facility] LABORATORY RBC 4.20 (L) 4.58 - [facility] 5.54 [facility] x10(6)/[facility] LABORATORY Hemoglobin 12.3 (L) 13.7 - [facility] 16.5 gm/dL [facility] LABORATORY Hematocrit 37.4 (L) 40.5 - MELINA MONAE 48.5 % [facility] LABORATORY MCV 89.0 82.9 - MELINA VILLANUEVACK 93.1 [facility] LABORATORY MCH 29.3 27.5 - MELINA VILLANUEVACK 32.1 pg [facility] LABORATORY MCHC 32.9 32.0 - MELINA WHITTENCOCK 35.7 gm/dL [facility] LABORATORY Platelets 181 145 - 357 [facility] x10(3)/[facility] LABORATORY RDWSD 47.7 (H) 36.0 - MELINA WHITTENCOCK 45.0 [facility] LABORATORY RDWCV 14.8 (H) 11.4 - MELINA VILLANUEVACK 13.8 % [facility] LABORATORY MPV 12.3 7.6 - 12.9 [facility] LABORATORY nRBC % Auto 0.0 % [facility] LABORATORY nRBC Abs Auto 0.000 0.000 - MELINA MARSHDOV 0.000 [facility] x10(3)/[facility] LABORATORY Specimen Anatomical Collection Method Collection Time Receive d Time (Source) Location / / Volume Laterality Blood specimen 12/07/2019 5:20 AM 020 5:37 (specimen) EDT AM EDT Resulting Agency Comment Spec In Lab Riki Stevens MD HEMATOLOGY ORDERABLES Performing Organization Address City/[facility]/ZIP Code Phon e Number [address] Magnesium (12/07/2019 5:20 AM EDT) athologist Signature Magnesium 0.89 0.69 - 1.07 [facility] mmol/L [facility] LABORATORY Specimen Anatomical Collection Method Collection Time Receive d Time (Source) Location / / Volume Laterality Blood specimen 12/07/2019 5:20 AM 020 5:37 (specimen) EDT AM EDT Resulting Agency Comment Spec In Lab Gretchen Yoon MD CHEMISTRY ORDERABLES Performing Organization Address City/[facility]/ZIP Code Phon e Number [address] (ABNORMAL) BMP w/fasting Glucose (12/07/2019 5:20 AM EDT) athologist Signature Glucose 100 (H) 65 - 99 [facility] Fasting mg/dL [facility] LABORATORY Comment: ?Fasting* Glucose Interpretive [...] of Diabetes Mellitus, Position Statement from the [place] Diabetes Association. ??Diabete s Care, Volume 33, Supplement 1, Jul 2009 BUN 14 10 - 20 mg/dL [facility] LABORATORY Creatinine 0.83 0.80 - [...] Anion Gap 14 5 - 15 mmol/L [facility] LABORATORY Calcium 8.8 8.5 - [...] of body mass or the acutely ill. http://[employer]/[facility] STILWELLnkf eGFR 101 >=60 mL/min/1.73 m?? [facility] LABORATORY Comment: The eGFR was calculated using the CKD-EP I equation. As with all creatinine based estimates of kidney function, eGFR values calculated with the CKD-EPI equation are not accurate in patients wi th acute kidney failure, extremes of body mass or the acutely ill. http://[employer]/[facility] ST[facility]LLnkf Specimen Anatomical Collection Method Collection Time Receive d Time (Source) Location / / Volume Laterality Blood specimen 12/07/2019 5:20 AM 020 5:37 (specimen) EDT AM EDT Resulting Agency Comment Spec In Lab Gretchen Yoon MD CHEMISTRY ORDERABLES Performing Organization Address City/State/[place] [address] Heparin (unfractionated) Level (12/06/2019 10:14 PM EDT) athologist Signature Heparin UFH 0.29 IU/mL [facility] LABORATORY Comment: Guidelines for therapeutic [...] Organization Address City/State/ZIP [place] [address] Head wo Contrast [...] regarding this report, please contact [facility] number below. ? Narrative 12/06/2019 [...] unchanged mild edema. Preliminary report signed by: iSlvio Baker at 12/06/2019 8:02 PM I have [...] Signature WBC 10.4 (H) 4.0 - 9.5 [facility] [employer] x10(3)/[facility] LABORATORY RBC 4.32 (L) 4.58 - MELINA DOV 5.54 [facility] x10(6)/[facility] LABORATORY Hemoglobin 12.5 (L) 13.7 - MELINA DOV 16.5 gm/dL [facility] LABORATORY Hematocrit 38.4 (L) 40.5 - M[place] DOV 48.5 % [facility] LABORATORY MCV 88.9 82.9 - [facility] DOV 93.1 [facility] LABORATORY MCH 28.9 27.5 - [employer] United[employer]OV 32.1 pg [facility] LABORATORY MCHC 32.6 32.0 - M[place]INA DOV 35.7 gm/dL [facility] LABORATORY Platelets 194 145 - 357 [facility] x[facility](3[facility] LABORATORY RDWSD 46.9 (H) 36.0 - [facility] DOV 45.0 [facility] LABORATORY RDWCV 14.6 (H) 11.4 - MELINA DOV 13.8 % [facility] LABORATORY MPV 11.9 7.6 - 12.9 [facility] DOV [facility] LABORATORY nRBC % Auto 0.0 % [facility] LABORATORY nRBC Abs Auto 0.000 0.000 - [employer] 0.000 [facility] x10(3)/[facility] LABORATORY Specimen Anatomical Collection Method Collection Time Receive d Time (Source) Location / / Volume Laterality Blood specimen 12/06/2019 4:20 PM 020 4:31 (specimen) EDT PM EDT Resulting Agency Comment Spec In Lab Gretchen Yoon MD HEMATOLOGY ORDERABLES Performing Organization Address City/State/ZIP Code Phon e Number [place] [id number] HOSPITAL LABORATORY Drive Heparin (unfractionated) Level (12/06/2019 4:20 PM EDT) athologist Signature Heparin UFH 0.30 IU/mL [facility] LABORATORY Comment: Guidelines for therapeutic [...] Organization Address City/State/ZIP Code Phon e Number [address] Heparin (unfractionated) Level (12/06/2019 10:02 AM EDT) athologist Signature Heparin UFH <0.04 IU/mL [facility] LABORATORY Comment: Guidelines for therapeutic [...] Organization Address City/State/[place] [address] Magnesium (12/06/2019 3:36 AM EDT) P athologist Signature Magnesium 0.86 0.69 - 1.07 [facility] mmol/L [facility] LABORATORY Specimen Anatomical Collection Method Collection Time Receive d Time (Source) Location / / Volume Laterality Blood specimen 12/06/2019 3:36 AM 020 3:45 (specimen) EDT AM EDT Resulting Agency Comment Spec In Lab Gretchen Yoon MD CHEMISTRY ORDERABLES Performing Organization Address City/State/[place] [address] (ABNORMAL) BMP w/fasting Glucose (12/06/2019 3:36 AM EDT) P athologist Signature Glucose 103 (H) 65 - 99 [facility] Fasting mg/dL [facility] LABORATORY Comment: ?Fasting* Glucose Interpretive [...] of Diabetes Mellitus, Position Statement from the [place] Diabetes [employer]. ??Diabete s Care, Volume 33, Supplement 1, Jul 2009 BUN 20 10 - 20 mg/dL [facility] LABORATORY Creatinine 0.88 0.80 - [...] Anion Gap 14 5 - 15 mmol/L [facility] LABORATORY Calcium 8.7 8.5 - [...] of body mass or the acutely ill. http://[employer]/DHMCnkf eGFR 99 >=60 mL/min/1.73 m?? [facility] LABORATORY Comment: The eGFR was calculated using the CKD-EP I equation. As with all creatinine based estimates of kidney function, eGFR values calculated with the CKD-EPI equation are not accurate in patients wi th acute kidney failure, extremes of body mass or the acutely ill. http://[employer]/DHMCnkf Specimen Anatomical Collection Method Collection Time Receive d Time (Source) Location / / Volume Laterality Blood specimen 12/06/2019 3:36 AM 020 3:45 (specimen) EDT AM EDT Resulting Agency Comment Spec In Lab Gretchen Yoon MD CHEMISTRY ORDERABLES Performing Organization Address City/State/[place] [address] (ABNORMAL) Hemogram (12/06/2019 3:36 AM EDT) Analysis Performed At Patho logist Time Signature WBC 9.2 4.0 - 9.5 [facility] x10(3[facility] LABORATORY RBC 3.99 (L) 4.58 - M[place] DOV 5.54 [facility] x10(6)/[facility] LABORATORY Hemoglobin 11.9 (L) 13.7 - [facility] DOV 16.5 gm/dL [facility] LABORATORY Hematocrit 35.5 (L) 40.5 - [place] DOV 48.5 % [facility] LABORATORY MCV 89.0 82.9 - [facility] DOV 93.1 [facility] LABORATORY MCH 29.8 27.5 - M[place]INA DOV 32.1 pg [facility] LABORATORY MCHC 33.5 32.0 - [facility] DOV 35.7 gm/dL [facility] LABORATORY Platelets 164 145 - 357 [facility] x10(3)/[facility] LABORATORY RDWSD 47.6 (H) 36.0 - [facility] DOV 45.0 [facility] LABORATORY RDWCV 14.7 (H) 11.4 - M[place]INA DOV 13.8 % [facility] LABORATORY MPV 11.9 7.6 - 12.9 [facility] LAB[facility]ATORY nRBC % Auto 0.0 % [facility] LABORATORY nRBC Abs Auto 0.000 0.000 - [employer] 0.000 [facility] x10(3)/[facility] LABORATORY Specimen Anatomical Collection Method Collection Time Receive d Time (Source) Location / / Volume Laterality Blood specimen 12/06/2019 3:36 AM 020 3:45 (specimen) EDT AM EDT Resulting Agency Comment Spec In Lab Gretchen Yoon MD HEMATOLOGY ORDERABLES Performing Organization Address City/State/[place] [address] (ABNORMAL) Differential, Automated (12/05/2019 10:52 PM EDT) [facility] Method Time Signature Neutrophils % 61.9 % [facility] LABORATORY Neutr Abs (ANC) 6.02 1.70 - [facility] 6.10 [facility] x10(3)/[facility] LABORATORY Lymphocytes % 22.4 % [facility] LABORATORY Lymphocytes Abs 2.2 0.9 - 3.2 [facility] x10(3)/[facility] LABORATORY Monocytes % 10.4 % [facility] LABORATORY Monocyte Abs 1.0 (H) 0.3 - 0.9 [facility] x10(3)/[facility] LABORATORY Eosinophils % 4.1 % [facility] LABORATORY Eosinophils Abs 0.4 0.0 - 0.4 [facility] x10(3)/[facility] LABORATORY Basophils % 0.7 % [facility] LABORATORY Basophils Abs 0.1 0.0 - 0.1 [facility] x10(3)/[facility] LABORATORY Immature Gran % 0.50 % [...] Abs 0.05 (H) 0.00 - 0.04 x10(3)/[facility] LABORATORY Specimen Anatomical Collection Method Collection Time Receive d Time (Source) Location / / Volume Laterality Blood specimen 12/05/2019 10:52 0 (specimen) PM EDT 10:59 PM EDT Resulting Agency Comment Spec In Lab Mandi Barrera MD HEMATOLOGY ORDERABLES Performing Organization Address City/State/[place] [address] (ABNORMAL) Hemogram (12/05/2019 10:52 PM EDT) Analysis Performed At Patho logist Time Signature WBC 9.7 (H) 4.0 - 9.5 [facility] x10(3)/[facility] LABORATORY RBC 4.07 (L) 4.58 - [facility] DOV 5.54 [facility] x10(6)/[facility] LABORATORY Hemoglobin 11.9 (L) 13.7 - [facility] 16.[facility] gm/dL [facility] LABORATORY Hematocrit 36.4 (L) 40.5 - [facility] 48.5 % [facility] LABORATORY MCV 89.4 82.9 - [facility] 93.1 [facility] LABORATORY MCH 29.2 27.5 - [facility] DOV 32.1 pg [facility] LABORATORY MCHC 32.7 32.0 - [facility] DOV 35.7 gm/dL [facility] LABORATORY Platelets 167 145 - 357 [facility] x10(3)/[facility] LABORATORY RDWSD 47.7 (H) 36.0 - [facility] DOV 45.0 [facility] LABORATORY RDWCV 14.6 (H) 11.4 - [facility] DOV 13.8 % [facility] LABORATORY MPV 12.1 7.6 - 12.9 [facility] LABORATORY nRBC % Auto 0.0 % [facility] LABORATORY nRBC Abs Auto 0.000 0.000 - [facility] DOV 0.000 [facility] x10(3)/[facility] LABORATORY Specimen Anatomical Collection Method Collection Time Receive d Time (Source) Location / / Volume Laterality Blood specimen 12/05/2019 10:52 0 (specimen) PM EDT 10:59 PM EDT Resulting Agency Comment Spec In Lab Mandi Barrera MD HEMATOLOGY ORDERABLES Performing Organization Address City/State/[place] [address] Heparin (unfractionated) Level (12/05/2019 10:52 PM EDT) P athologist Signature Heparin UFH <0.04 IU/mL [facility] LABORATORY Comment: Guidelines for therapeutic [...] Organization Address City/State/[place] [address] MRI Brain wwo Contrast [...] Time Signature WBC 8.7 4.0 - 9.5 [facility] x10(3)/[facility] LABORATORY RBC 4.17 (L) 4.58 - [place] DOV 5.54 [facility] x10(6)/[facility] LABORATORY Hemoglobin 12.4 (L) 13.7 - [facility] 16.5 gm/dL [facility] LABORATORY Hematocrit 37.0 (L) 40.5 - [facility] DOV 48.5 % [facility] LABORATORY MCV 88.7 82.9 - [facility] DOV 93.1 [facility] LABORATORY MCH 29.7 27.5 - [place] DOV 32.1 pg [facility] LABORATORY MCHC 33.5 32.0 - [facility] DOV 35.7 gm/dL [facility] LABORATORY Platelets 173 145 - 357 [facility] x10(3)/[facility] LABORATORY RDWSD 47.3 (H) 36.0 - [facility] DOV 45.0 [facility] LABORATORY RDWCV 14.6 (H) 11.4 - [facility] DOV 13.8 % [facility] LABORATORY MPV 12.1 7.6 - 12.9 [facility]OVHealth[facility]ORY nRBC % Auto 0.0 % [facility] LABORATORY nRBC Abs Auto 0.000 0.000 - [place] DOV 0.000 [facility] x10(3)/[facility] LABORATORY Specimen Anatomical Collection Method Collection Time Receive d Time (Source) Location / / Volume Laterality Blood specimen 12/05/2019 1:00 PM 020 1:13 (specimen) EDT PM EDT Resulting Agency Comment Spec In Lab Gretchen Yoon MD HEMATOLOGY ORDERABLES Performing Organization Address City/State/[place] [address] EKG 12 Lead (12/05/2019 10:52 AM EDT) Component Value Ref Range Test Analysis Performed Pathologis t Method Time At Signature Ventricular rate 72 BPM MUSE SYSTEM Atrial Rate 72 BPM MUSE SYSTEM P-R Interval 138 ms MUSE SYSTEM QRS Duration 96 ms MUSE SYSTEM Q-T Interval 396 ms MUSE SYSTEM QTC Calculated 433 ms MUSE SYSTEM (Bezet) Calculated P [place] 65 degrees MUSE SYSTEM Calculated R [place] 13 degrees MUSE SYSTEM Calculated T [place] 0 degrees MUSE SYSTEM INTERPRETATION Sinus rhythm Occasional Premature ventricular complexe s MUSE SYSTEM Possible Inferior infarct (cited on or before 29-NOV-2019) Abnormal ECG When compared with ECG of 04-DEC-2019 10:43, Sinus rhythm has replaced Atrial fibrillation Vent. rate has decreased BY ??86 BPM Confirmed by MD Ceja Daniel ([id number]) on 12/05/2019 3:55:22 PM Specimen Anatomical Collection Method Collection Time Receive d Time (Source) Location / / Volume Laterality 12/05/2019 10:52 12/05/2019 3:55 AM EDT PM EDT Paris Lagos MD ECG ORDERABLES Performing Organization Address City/State/ZIP Code Phon e Number MUSE SYSTEM Duplex Study for DVT, Bilat legs (12/05/2019 7:00 AM EDT) Component Value Ref Test Analysis Performed At [facility] gist Range Method Time Signature VB Text Department: Vascular Surgery Lab VASCUBASE Report Patient: [id number] (ANGEL LUIS SALINAS) CPT: 12660 ICD10: I26.99 Referring Physician: GRETCHEN YOON ?? [...] athologist Signature Magnesium 0.87 0.69 - 1.07 [facility] mmol/L [facility] LABORATORY Specimen Anatomical Collection Method Collection Time Receive d Time (Source) Location / / Volume Laterality Blood specimen 12/05/2019 4:18 AM 020 4:31 (specimen) EDT AM EDT Resulting Agency Comment Spec In Lab Gretchen Yoon MD CHEMISTRY ORDERABLES Performing Organization Address City/State/[place] [address] (ABNORMAL) BMP w/fasting Glucose (12/05/2019 4:18 AM EDT) P athologist Signature Glucose 104 (H) 65 - 99 [facility] Fasting mg/dL [facility] LABORATORY Comment: ?Fasting* Glucose Interpretive [...] of Diabetes Mellitus, Position Statement from the [place] Diabetes [employer]. ??Diabete s Care, Volume 33, Supplement 1, Jul 2009 BUN 21 (H) 10 - 20 mg/dL [facility] LABORATORY Creatinine 1.02 0.80 - [...] Anion Gap 12 5 - 15 mmol/L [facility] LABORATORY Calcium 8.8 8.5 - [...] of body mass or the acutely ill. http://[employer]/[facility] STILWELLnkf eGFR 84 >=60 mL/min/1.73 m?? [facility] LABORATORY Comment: The eGFR was calculated using the CKD-EP I equation. As with all creatinine based estimates of kidney function, eGFR values calculated with the CKD-EPI equation are not accurate in patients wi th acute kidney failure, extremes of body mass or the acutely ill. http://[employer]/[facility]nk[facility] Specimen Anatomical Collection Method Collection Time Receive d Time (Source) Location / / Volume Laterality Blood specimen 12/05/2019 4:18 AM 020 4:31 (specimen) EDT AM EDT Resulting Agency Comment Spec In Lab Gretchen Yoon MD CHEMISTRY ORDERABLES Performing Organization Address City/State/[place] [address] (ABNORMAL) Hemogram (12/05/2019 4:18 AM EDT) Analysis Performed At Patho logist Time Signature WBC 8.6 4.0 - 9.5 [facility] x10(3)/[facility] LABORATORY RBC 4.28 (L) 4.58 - [place] DOV 5.54 [facility] x10(6)/[facility] LABORATORY Hemoglobin 12.4 (L) 13.7 - [facility] 16.5 gm/dL [facility] LABORATORY Hematocrit 37.3 (L) 40.5 - [facility] 48.5 % [facility] LABORATORY MCV 87.1 82.9 - [facility] 93.1 [facility] LABORATORY MCH 29.0 27.5 - [place] DOV 32.1 pg [facility] LABORATORY MCHC 33.2 32.0 - [place] DOV 35.7 gm/dL [facility] LABORATORY Platelets 163 145 - 357 [facility] x10(3)/[facility] LABORATORY RDWSD 46.4 (H) 36.0 - [facility] DOV 45.0 [facility] LABORATORY RDWCV 14.4 (H) 11.4 - [facility] DOV 13.8 % [facility] LABORATORY MPV 11.7 7.6 - 12.9 [facility] LABORATORY nRBC % Auto 0.0 % [facility] LABORATORY nRBC Abs Auto 0.000 0.000 - [place] DOV 0.000 [facility] x10(3)/[facility] LABORATORY Specimen Anatomical Collection Method Collection Time Receive d Time (Source) Location / / Volume Laterality Blood specimen 12/05/2019 4:18 AM 020 4:31 (specimen) EDT AM EDT Resulting Agency Comment Spec In Lab Gretchen Yoon MD HEMATOLOGY ORDERABLES Performing Organization Address City/State/[place] [address] Cardiac for Morphology [...] regarding this report, please contact [facility] number below. ? Narrative 12/04/2019 6:16 PM EDT EXAMINATION: CT CARDIAC FOR MORPHOLOGY & FUNCTION CLINICAL HISTORY: Pt with AFib and intra cranial hemorrhage, evaluation for possible left atrial appendage closure TECHNIQUE: After timing bolus, 0.6 [facility] contiguous sections were obtained through [...] from neck/greatest puja meter to back wall: [place] 91, CAU 13: ??19 mm CORTES ??1, [...] from neck/greatest puja meter to back wall: [place] 91, CAU 13: 19 mm CORTES 1, [...] Time Signature WBC 8.9 4.0 - 9.5 [facility] x10(3)/[facility] LABORATORY RBC 4.69 4.58 - [facility] 5.54 [facility] x10(6)/[facility] LABORATORY Hemoglobin 13.5 (L) 13.7 - [facility] 16.5 gm/dL [facility] LABORATORY Hematocrit 41.7 40.5 - [facility] 48.5 % [facility] LABORATORY MCV 88.9 82.9 - MELINA MONAE 93.1 [facility] LABORATORY MCH 28.8 27.5 - M[place] MONAE 32.1 pg [facility] LABORATORY MCHC 32.4 32.0 - [place] MONAE 35.7 gm/dL [facility] Platelets 196 145 - 357 [facility] x10(3)/[facility] LABORATORY RDWSD 46.7 (H) 36.0 - MEL[place] MONAE 45.0 [facility] LABORATORY RDWCV 14.5 (H) 11.4 - MELINA DOV 13.8 % [facility] LABORATORY MPV 12.1 7.6 - 12.9 [facility] LABORATORY nRBC % Auto 0.0 % [facility] nRBC Abs Auto 0.000 0.000 - MELINA MONAE 0.000 [facility] x10(3)/[facility] LABORATORY Specimen Anatomical Collection Method Collection Time Receive d Time (Source) Location / / Volume Laterality Blood specimen 12/04/2019 12:55 0 1:06 (specimen) PM EDT PM EDT Resulting Agency Comment Spec In Lab Gretchen Yoon MD HEMATOLOGY ORDERABLES Performing Organization Address City/State/[place] [address] EKG 12 Lead (12/04/2019 10:43 AM EDT) Component Value Ref Range Test Analysis Performed Pathologis t Method Time At Signature Ventricular rate 158 BPM MUSE SYSTEM Atrial Rate 102 BPM MUSE SYSTEM QRS Duration 92 ms MUSE SYSTEM Q-T Interval 294 ms MUSE SYSTEM QTC Calculated 476 ms MUSE SYSTEM (Bezet) Calculated R [place] 17 degrees MUSE SYSTEM Calculated T [place] 90 degrees MUSE SYSTEM INTERPRETATION Atrial fibrillation with rapid ventricular response MUSE SYSTEM Possible Inferior infarct (cited on or before 29-NOV-2019) Abnormal ECG When compared with ECG of 30-NOV-2019 21:07, Atrial fibrillation has replaced Sinus rhythm Vent. rate has increased BY ??65 BPM Confirmed by MD Ceja Daniel ([id number]) on 12/05/2019 8:59:44 AM Specimen Anatomical Collection Method Collection Time Receive d Time (Source) Location / / Volume Laterality 12/04/2019 10:43 12/05/2019 8:59 AM EDT AM EDT Gretchen Yoon MD ECG ORDERABLES Performing Organization Address City/State/ZIP Code Phon e Number MUSE SYSTEM (ABNORMAL) Magnesium (12/04/2019 4:28 AM EDT) athologist Signature Magnesium 1.17 (H) 0.69 - 1.07 [facility] mmol/L [facility] LABORATORY Specimen Anatomical Collection Method Collection Time Receive d Time (Source) Location / / Volume Laterality Blood specimen 12/04/2019 4:28 AM 020 4:40 (specimen) EDT AM EDT Resulting Agency Comment Spec In Lab Gretchen Yoon MD CHEMISTRY ORDERABLES Performing Organization Address City/State/[place] [address] (ABNORMAL) BMP w/fasting Glucose (12/04/2019 4:28 AM EDT) P athologist Signature Glucose 108 (H) 65 - 99 [facility] Fasting mg/dL [facility] LABOR[facility]ORY Comment: ?Fasting* Glucose Interpretive [...] of Diabetes Mellitus, Position Statement from the [place] [employer]. ??Diabete s Care, Volume 33, Supplement 1, Jul 2009 BUN 19 10 - 20 mg/dL [facility] LABORATORY Creatinine 0.89 0.80 - [...] Anion Gap 12 5 - 15 mmol/L [facility] LABORATORY Calcium 8.5 8.5 - [...] of body mass or the acutely ill. http://[employer]/[facility] eGFR 98 >=60 mL/min/1.73 m?? [facility] LABORATORY Comment: The eGFR was calculated using the CKD-EP I equation. As with all creatinine based estimates of kidney function, eGFR values calculated with the CKD-EPI equation are not accurate in patients wi th acute kidney failure, extremes of body mass or the acutely ill. http://[employer]/[facility] Specimen Anatomical Collection Method Collection Time Receive d Time (Source) Location / / Volume Laterality Blood specimen 12/04/2019 4:28 AM 020 4:40 (specimen) EDT AM EDT Resulting Agency Comment Spec In Lab Gretchen Yoon MD CHEMISTRY ORDERABLES Performing Organization Address City/State/[place] [address] (ABNORMAL) Hemogram (12/04/2019 4:28 AM EDT) Analysis Performed At Patho logist Time Signature WBC 7.8 4.0 - 9.5 [facility] x10(3)/[facility] LABORATORY RBC 4.10 (L) 4.58 - [facility] 5.54 [facility] x10(6)/[facility] LABORATORY Hemoglobin 12.0 (L) 13.7 - MELINA [place] 16.5 gm/dL [facility]OR[facility]ORY Hematocrit 36.5 (L) 40.5 - MELINA VILLANUEVACK 48.5 % [facility] LABORATORY MCV 89.0 82.9 - MELINA [place] 93.1 [facility] LABORATORY MCH 29.3 27.5 - MELINA [place] 32.1 pg [facility] LABORATORY MCHC 32.9 32.0 - MELINA [place] 35.7 gm/dL [facility] LABORATORY Platelets 151 145 - 357 [facility] x10(3)/[facility] LABORATORY RDWSD 46.9 (H) 36.0 - MELINA [place] 45.0 [facility] LABORATORY RDWCV 14.4 (H) 11.4 - MELINA DOV 13.8 % [facility] LABORATORY MPV 12.2 7.6 - 12.9 MELINA MARSHDOV [facility] LABORATORY nRBC % Auto 0.0 % [facility] LABORATORY nRBC Abs Auto 0.000 0.000 - MELINA VILLANUEVACK 0.000 [facility] x10(3)/[facility] LABORATORY Specimen Anatomical Collection Method Collection Time Receive d Time (Source) Location / / Volume Laterality Blood specimen 12/04/2019 4:28 AM 020 4:40 (specimen) EDT AM EDT Resulting Agency Comment Spec In Lab Gretchen Yoon MD HEMATOLOGY ORDERABLES Performing Organization Address City/State/[place] [address] Potassium (12/03/2019 7:55 PM EDT) athologist Signature Potassium 3.9 3.5 - 5.0 [facility] mmol/L [facility] LAB[facility] Comment: Please note: ??Patients [...] Yoon MD CHEMISTRY ORDERABLES Performing Organization Address City/[facility]/[place] [address] Potassium (12/03/2019 1:57 PM EDT) P athologist Signature Potassium 3.7 3.5 - 5.0 [facility] DOV mmol/L [facility] LABORATORY Comment: Please note: ??Patients [...] Yoon MD CHEMISTRY ORDERABLES Performing Organization Address City/[facility]/[place] [address] (ABNORMAL) Hemogram (12/03/2019 1:57 PM EDT) Analysis Performed At Patho logist Time Signature WBC 8.8 4.0 - 9.5 MELINA DOV x10(3)/[facility] LABORATORY RBC 4.27 (L) 4.58 - MELINA DOV 5.54 [facility] x10(6)/[facility] LABORATORY Hemoglobin 12.5 (L) 13.7 - MELINA DOV 16.5 gm/dL [facility] LABORATORY Hematocrit 37.5 (L) 40.5 - MELINA DOV 48.5 % [facility] LABORATORY MCV 87.8 82.9 - MELINA DOV 93.1 [facility] LABORATORY MCH 29.3 27.5 - MELINA DOV 32.1 pg [facility] LABORATORY MCHC 33.3 32.0 - MELINA DOV 35.7 gm/dL [facility] LABORATORY Platelets 158 145 - 357 MELINA DOV x10(3)/[facility] LABORATORY RDWSD 46.9 (H) 36.0 - MELINA DOV 45.0 [facility] LABORATORY RDWCV 14.5 (H) 11.4 - MELINA DOV 13.8 % [facility] LABORATORY MPV 12.2 7.6 - 12.9 [facility] fL [facility] LABORATORY nRBC % Auto 0.0 % [facility] LABORATORY nRBC Abs Auto 0.000 0.000 - MELINA MONAE 0.000 [facility] x10(3)/[facility] LABORATORY Specimen Anatomical Collection Method Collection Time Receive d Time (Source) Location / / Volume Laterality Blood specimen 12/03/2019 1:57 PM 020 2:21 (specimen) EDT PM EDT Resulting Agency Comment Spec In Lab Gretchen Yoon MD HEMATOLOGY ORDERABLES Performing Organization Address City/State/ZIP Code Phon e Number [address] Magnesium (12/03/2019 4:02 AM EDT) P athologist Signature Magnesium 0.79 0.69 - 1.07 [facility] mmol/L [facility] LABORATORY Specimen Anatomical Collection Method Collection Time Receive d Time (Source) Location / / Volume Laterality Blood specimen 12/03/2019 4:02 AM 020 4:16 (specimen) EDT AM EDT Resulting Agency Comment Spec In Lab Gretchen Yoon MD CHEMISTRY ORDERABLES Performing Organization Address City/State/ZIP Code Phon e Number [address] (ABNORMAL) BMP w/fasting Glucose (12/03/2019 4:02 AM EDT) P athologist Signature Glucose 100 (H) 65 - 99 [facility] Fasting mg/dL [facility] LABORATORY Comment: ?Fasting* Glucose Interpretive [...] of Diabetes Mellitus, Position Statement from the [place] Diabetes [employer]. ??Diabete s Care, Volume 33, Supplement 1, Jul 2009 BUN 17 10 - 20 mg/dL [facility] LABORATORY Creatinine 0.95 0.80 - [...] Anion Gap 15 5 - 15 mmol/L [facility] LABORATORY Calcium 8.3 (L) 8.5 [...] of body mass or the acutely ill. http://[employer]/[facility]LLnk[facility] eGFR 92 >=60 mL/min/1.73 m?? [facility] LABORATORY Comment: The eGFR was calculated using the CKD-EP I equation. As with all creatinine based estimates of kidney function, eGFR values calculated with the CKD-EPI equation are not accurate in patients wi th acute kidney failure, extremes of body mass or the acutely ill. http://[employer]/[facility]MCnkf Specimen Anatomical Collection Method Collection Time Receive d Time (Source) Location / / Volume Laterality Blood specimen 12/03/2019 4:02 AM 06/03/2 020 4:16 (specimen) EDT AM EDT Resulting Agency Comment Spec In Lab Gretchen Yoon MD CHEMISTRY ORDERABLES Performing Organization Address City/State/ZIP Code Phon e Number [address] (ABNORMAL) Hemogram (12/03/2019 4:02 AM EDT) Analysis Performed At Patho logist Time Signature WBC 9.1 4.0 - 9.5 MELINA DOV x10(3)/[facility] LABORATORY RBC 4.01 (L) 4.58 - MELINA DOV 5.54 [facility] x10(6)/[facility] LABORATORY Hemoglobin 11.8 (L) 13.7 - [facility] DOV 16.5 gm/dL [facility] LABORATORY Hematocrit 35.6 (L) 40.5 - MELINA DOV 48.5 % [facility] LABORATORY MCV 88.8 82.9 - [facility] DOV 93.1 [facility] LABORATORY MCH 29.4 27.5 - MELINA DOV 32.1 pg [facility] LABORATORY MCHC 33.1 32.0 - MELINA DOV 35.7 gm/dL [facility] LABORATORY Platelets 130 (L) 145 - 357 [facility] LABORATORY RDWSD 46.6 (H) 36.0 - MELINA DOV 45.0 [facility] LABORATORY RDWCV 14.4 (H) 11.4 - MELINA DOV 13.8 % [facility] LABORATORY MPV 12.4 7.6 - 12.9 [facility] DOV [facility] LABORATORY nRBC % Auto 0.0 % [facility] LABORATORY nRBC Abs Auto 0.000 0.000 - MELINA DOV 0.000 [facility] x10(3)/[facility] LABORATORY Specimen Anatomical Collection Method Collection Time Receive d Time (Source) Location / / Volume Laterality Blood specimen 12/03/2019 4:02 AM 020 4:16 (specimen) EDT AM EDT Resulting Agency Comment Spec In Lab Gretchen Yoon MD HEMATOLOGY ORDERABLES Performing Organization Address City/State/[place] [address] XR Chest One View [...] fluid on the right. Procedure Note Ashly Malrey MD - 12/02/2019Formatt ing of this note [...] Signature WBC 10.6 (H) 4.0 - 9.5 [facility] x10(3)/[facility] LABORATORY RBC 4.00 (L) 4.58 - MELINA DOV 5.54 [facility] x10(6)/[facility] LABORATORY Hemoglobin 11.9 (L) 13.7 - [facility] DOV 16.5 gm/dL [facility] LABORATORY Hematocrit 35.7 (L) 40.5 - MELINA DOV 48.5 % [facility] LABORATORY MCV 89.3 82.9 - MELINA DOV 93.1 [facility] LABORATORY MCH 29.8 27.5 - MELINA DOV 32.1 pg [facility] LABORATORY MCHC 33.3 32.0 - MELINA DOV 35.7 gm/dL [facility] LABORATORY Platelets 120 (L) 145 - 357 [facility] x10(3)/[facility] LABORATORY RDWSD 47.5 (H) 36.0 - MELINA DOV 45.0 [facility] LABORATORY RDWCV 14.6 (H) 11.4 - MELINA DOV 13.8 % [facility] LABORATORY MPV 12.0 7.6 - 12.9 [facility] DOV [facility] LABORATORY nRBC % Auto 0.0 % [facility] LABORATORY nRBC Abs Auto 0.000 0.000 - MELINA DOV 0.000 [facility] x10(3)/[facility] LABORATORY Specimen Anatomical Collection Method Collection Time Receive d Time (Source) Location / / Volume Laterality Blood specimen 12/02/2019 12:50 0 1:22 (specimen) PM EDT PM EDT Resulting Agency Comment Spec In Lab Gretchen Yoon MD HEMATOLOGY ORDERABLES Performing Organization Address City/State/ZIP Code Phon e Number [address] Blue Tube HOLD (12/02/2019 4:55 AM EDT) P athologist Signature Blue Hold Sample in [facility] lab. [facility] LABORATORY Specimen Anatomical Collection Method Collection Time Receive d Time (Source) Location / / Volume Laterality Blood specimen Venous Draw / 12/02/2019 4:55 AM 2019 5:03 (specimen) Unknown EDT AM EDT Darrell Glasgow MD HEMATOLOGY ORDERABLES Performing Organization Address City/[facility]/ZIP Code Phon e Number [address] Magnesium (12/02/2019 4:55 AM EDT) athologist Signature Magnesium 0.85 0.69 - 1.07 [facility] mmol/L [facility] LABORATORY Specimen Anatomical Collection Method Collection Time Receive d Time (Source) Location / / Volume Laterality Blood specimen 12/02/2019 4:55 AM 020 5:02 (specimen) EDT AM EDT Resulting Agency Comment Spec In Lab Gretchen Yoon MD CHEMISTRY ORDERABLES Performing Organization Address City/[facility]/ZIP Code Phon e Number [address] (ABNORMAL) BMP w/fasting Glucose (12/02/2019 4:55 AM EDT) P athologist Signature Glucose 114 (H) 65 - 99 [facility] Fasting mg/dL [facility] LABORATORY Comment: ?Fasting* Glucose Interpretive [...] of Diabetes Mellitus, Position Statement from the [place] Diabetes [employer]. ??Diabete s Care, Volume 33, Supplement 1, Jul 2009 BUN 13 10 - 20 mg/dL [facility] LABORATORY Creatinine 0.93 0.80 - [...] Anion Gap 12 5 - 15 mmol/L [facility] LABORATORY Calcium 8.1 (L) 8.5 [...] of body mass or the acutely ill. http://[employer]/[facility]nk[facility] eGFR 94 >=60 mL/min/1.73 m?? [facility] LABORATORY Comment: The eGFR was calculated using the CKD-EP I equation. As with all creatinine based estimates of kidney function, eGFR values calculated with the CKD-EPI equation are not accurate in patients wi th acute kidney failure, extremes of body mass or the acutely ill. http://[employer]/[facility] Specimen Anatomical Collection Method Collection Time Receive d Time (Source) Location / / Volume Laterality Blood specimen 12/02/2019 4:55 AM 020 5:02 (specimen) EDT AM EDT Resulting Agency Comment Spec In Lab Gretchen Yoon MD CHEMISTRY ORDERABLES Performing Organization Address City/State/ZIP Code Phon e Number [address] (ABNORMAL) Hemogram (12/02/2019 4:55 AM EDT) Analysis Performed At Patho logist Time Signature WBC 9.3 4.0 - 9.5 [place] DOV x10(3)/[facility] LABORATORY RBC 3.71 (L) 4.58 - MELINA DOV 5.54 [facility] x10(6)/[facility] LABORATORY Hemoglobin 10.8 (L) 13.7 - M[place] DOV 16.5 gm/dL [facility] LABORATORY Hematocrit 33.1 (L) 40.5 - M[place] DOV 48.5 % [facility] LABORATORY MCV 89.2 82.9 - [facility] DOV 93.1 [facility] LABORATORY MCH 29.1 27.5 - M[place]INA DOV 32.1 pg [facility] LABORATORY MCHC 32.6 32.0 - M[place] DOV 35.7 gm/dL [facility] LABORATORY Platelets 93 (L) 145 - 357 [facility] x[facility](3[facility] LABORATORY RDWSD 47.1 (H) 36.0 - [facility] DOV 45.0 [facility] LABORATORY RDWCV 14.6 (H) 11.4 - M[place] DOV 13.8 % [facility] LABORATORY MPV 11.7 7.6 - 12.9 [facility] DOV [facility] LABORATORY nRBC % Auto 0.0 % [facility] LABORATORY nRBC Abs Auto 0.000 0.000 - M[place]INA DOV 0.000 [facility] x10(3)/[facility] LABORATORY Specimen Anatomical Collection Method Collection Time Receive d Time (Source) Location / / Volume Laterality Blood specimen 12/02/2019 4:55 AM 020 5:02 (specimen) EDT AM EDT Resulting Agency Comment Spec In Lab Gretchen Yoon MD HEMATOLOGY ORDERABLES Performing Organization Address City/State/ZIP Code Phon e Number [address] Transfuse 1 unit platelets, [...] regarding this report, please contact [facility] number below. ? Electronically signed by: Angel Luis Barboza MD, [facility] ([phone]), at 12/01/2019 8:02 PM Narrative 12/01/2019 8:02 [...] Organization Address City/State/[place] [address] Duplex for DVT, Arm, Unilat (12/01/2019 5:08 PM EDT) Component Value Ref Test Analysis Performed At [facility] Range Method Time Signature VB Text Department: Vascular Surgery Lab VASCUBASE Report Patient: [id number] (ANGEL LUIS SALINAS) CPT: 95557 ICD10: R60.0 Referring Physician: GRETCHEN YOON ?? [...] Head CT 11/30/2019. CT angiogram of the [place] 11/01. FINDINGS: Ventricles are normal [...] Head CT 11/30/2019. CT angiogram of the [place] 11/01. FINDINGS: Ventricles are normal in size. [...] Scan, Peripheral Blood (12/01/2019 12:51 PM EDT) [facility] Method Time Signature Plat Estimate Decreased [facility] LABORATORY RBC Morphology Normal [facility] LABORATORY Giant Less than 1 /HPF [facility] LABORATORY Specimen Anatomical Collection Method Collection Time Receive d Time (Source) Location / / Volume Laterality Blood specimen 12/01/2019 12:51 0 1:05 (specimen) PM EDT PM EDT Resulting Agency Comment Spec In Lab Riki Stevens MD HEMATOLOGY ORDERABLES Performing Organization Address City/State/[place] [address] (ABNORMAL) Differential, Automated (12/01/2019 12:51 PM EDT) [facility] Method Time Signature Neutrophils % 74.9 % [facility] LABORATORY Neutr Abs (ANC) 6.34 (H) 1.70 - [facility] 6.10 [facility] x10(3)/[facility] LABORATORY Lymphocytes % 11.4 % [facility] LABORATORY Lymphocytes Abs 1.0 0.9 - 3.2 [facility] x10(3)/[facility] LABORATORY Monocytes % 12.4 % [facility] LABORATORY Monocyte Abs 1.0 (H) 0.3 - 0.9 [facility] x10(3)/[facility] LABORATORY Eosinophils % 0.4 % [facility] LABORATORY Eosinophils Abs 0.0 0.0 - 0.4 [facility] x10(3)/[facility] LABORATORY Basophils % 0.4 % [facility] LABORATORY Basophils Abs 0.0 0.0 - 0.1 [facility] x10(3)/[facility] LABORATORY Immature Gran % 0.50 % [place] [...] Pita Gran Abs 0.04 0.00 - 0.04 x10(3)/[facility] LABORATORY Specimen Anatomical Collection Method Collection Time Receive d Time (Source) Location / / Volume Laterality Blood specimen 12/01/2019 12:51 0 1:05 (specimen) PM EDT PM EDT Resulting Agency Comment Spec In Lab Riki Stevens MD HEMATOLOGY ORDERABLES Performing Organization Address City/State/[place] [address] (ABNORMAL) Hemogram (12/01/2019 12:51 PM EDT) Analysis Performed At Patho logist Time Signature WBC 8.4 4.0 - 9.5 [facility] x10(3)/[facility] LABORATORY RBC 3.69 (L) 4.58 - [facility] 5.54 [facility] x10(6)/[facility] LABORATORY Hemoglobin 10.8 (L) 13.7 - [facility] 16.5 gm/dL [facility] LABORATORY Hematocrit 32.4 (L) 40.5 - [facility] 48[facility]5 % [facility] LABORATORY MCV 87.8 82.9 - [facility] 93.1 fL [facility] LABORATORY MCH 29.3 27.5 - [facility] 32.1 pg [facility] LABORATORY MCHC 33.3 32.0 - [facility] 35.7 gm/dL [facility] LABORATORY Platelets 72 (L) 145 - 357 [facility] x10(3)/[facility] LABORATORY RDWSD 47.2 (H) 36.0 - [facility] 45.0 [facility] LABORATORY RDWCV 14.6 (H) 11.4 - [facility] 13.8 % [facility] LABORATORY MPV 12.2 7.6 - 12.9 [facility] LABORATORY nRBC % Auto 0.0 % [facility] LABORATORY nRBC Abs Auto 0.000 0.000 - [facility] 0.000 [facility] x10(3)/[facility] LABORATORY Specimen Anatomical Collection Method Collection Time Receive d Time (Source) Location / / Volume Laterality Blood specimen 12/01/2019 12:51 0 1:05 (specimen) PM EDT PM EDT Resulting Agency Comment Spec In Lab Riki Stevens MD HEMATOLOGY ORDERABLES Performing Organization Address City/[facility]/ZIP Code Phon e Number [address] (ABNORMAL) Coox2 (12/01/2019 11:42 AM EDT) Analysis Performed At Patho logist Time Signature pO2 Coox 30 mmHg [facility] LABORATORY Hgb Blood Gas 11.6 (L) 13.7 - [facility] 16.5 gm/dL [facility] LABORATORY O2HB Coox 60.8 % [facility] LABORATORY COHB Coox 0.6 % [facility] LABORATORY Comment: Nonsmokers: 0.5-1.5% COHB Smokers: Variable, but usually less than 10% Toxic: 20-30% COHB Lethal: Greater than 60% COHB METHB Coox 0.6 <=1.5 % [facility] LABORATORY Source Coox Mixed Venous [facility] LABORATORY Specimen Anatomical Collection Method Collection Time Receive d Time (Source) Location / / Volume Laterality Blood specimen 12/01/2019 11:42 0 (specimen) AM EDT 11:42 AM EDT Gretchen Yoon MD CHEMISTRY ORDERABLES Performing Organization Address City/State/[place] [address] Sedimentation rate (12/01/2019 3:55 AM EDT) P athologist Signature Sed Rate 25 3 - 46 [facility] mm/hr [facility] LABORATORY Comment: Effective June 11, [...] Winn MD HEMATOLOGY ORDERABLES Performing Organization Address City/[facility]/ZIP Code Phon e Number [address] (ABNORMAL) CRP, acute inflammation [...] Winn MD CHEMISTRY ORDERABLES Performing Organization Address City/[facility]/ZIP Code Phon e Number [address] ABORH Recheck Status (12/01/2019 3:55 AM EDT) [facility] [employer] Lab Method Time Signature ABORH Recheck Order Placed [facility] LABORATORY ABORH Type Complete [facility] LABORATORY Specimen Anatomical Collection Method Collection Time Receive d Time (Source) Location / / Volume Laterality Blood specimen 12/01/2019 3:55 AM 020 4:15 (specimen) EDT AM EDT Resulting Agency Comment Spec In Lab Lewis Gee MD BLOOD BANK ORDERABLES Performing Organization Address City/[facility]/[place] [address] HOSPITAL LABORATORY Drive Antibody screen (12/01/2019 3:55 AM EDT) Patholo gist Method Time Signature Ab Screen Negative [facility] LABORATORY Expires at 12/04/2019 MELINA MARSHDOV [id number] on: [facility] LABORATORY Specimen Anatomical Collection Method Collection Time Receive d Time (Source) Location / / Volume Laterality Blood specimen 12/01/2019 3:55 AM 020 4:15 (specimen) EDT AM EDT Resulting Agency Comment Spec In Lab Lewis Gee MD BLOOD BANK ORDERABLES Performing Organization Address [facility] [place] [address] ABO/Rh Typing (12/01/2019 3:55 AM EDT) athologist Signature ABORh Type AB Pos [facility] LABORATORY Specimen Anatomical Collection Method Collection Time Receive d Time (Source) Location / / Volume Laterality Blood specimen 12/01/2019 3:55 AM 020 4:15 (specimen) EDT AM EDT Resulting Agency Comment Spec In Lab Lewis Gee MD BLOOD BANK ORDERABLES Performing Organization Address [facility] [place] [address] (ABNORMAL) Troponin (12/01/2019 3:55 AM EDT) athologist [facility] Troponin-T 4.35 (H) 0.00 - [facility] 0.00 ng/mL [facility] LABORATORY Comment: result rechecked-slw The 99th percentile for Troponin T is le ss than 0.01 ng/mL, any detectable cTnT concentration using this assay should be considered elevated. According to the third universal definit ion of myocardial infarction the following criteria with a clinical prese ntation consistent with acute myocardial ischemia meets the diagnosis for a myocardial infarction (CA). Detection of a rise and/or fall of [...] additional sample may be indicated. Reference: Third Baylis Definition of Myocardial Infarction. Journal of the [place] College of [employer]iology 2012;60:1581-98 Specimen Anatomical Collection Method Collection Time Receive d Time (Source) Location / / Volume Laterality Blood specimen 12/01/2019 3:55 AM 020 4:00 (specimen) EDT AM EDT Resulting Agency Comment Spec In Lab Gretchen Yoon MD CHEMISTRY ORDERABLES Performing Organization Address City/State/ZIP Code Phon e Number [address] Magnesium (12/01/2019 3:55 AM EDT) athologist Signature Magnesium 0.96 0.69 - 1.07 [facility] mmol/L [facility] LABORATORY Specimen Anatomical Collection Method Collection Time Receive d Time (Source) Location / / Volume Laterality Blood specimen 12/01/2019 3:55 AM 020 4:00 (specimen) EDT AM EDT Resulting Agency Comment Spec In Lab Gretchen Yoon MD CHEMISTRY ORDERABLES Performing Organization Address City/State/[place] [address] (ABNORMAL) BMP w/fasting Glucose (12/01/2019 3:55 AM EDT) P athologist Signature Glucose 148 (H) 65 - 99 [facility] Fasting mg/dL [facility] LABORATORY Comment: ?Fasting* Glucose Interpretive [...] of Diabetes Mellitus, Position Statement from the [place] Diabetes Association. ??Diabete s Care, Volume 33, Supplement 1, Jul 2009 BUN 11 10 - 20 mg/dL [facility] LABORATORY Creatinine 0.96 0.80 - [...] Anion Gap 10 5 - 15 mmol/L [facility] LABORATORY Calcium 7.6 (L) 8.5 [...] of body mass or the acutely ill. http://[employer]/[facility]LL[facility] eGFR 91 >=60 mL/min/1.73 m?? [facility] LABORATORY Comment: The eGFR was calculated using the CKD-EP I equation. As with all creatinine based estimates of kidney function, eGFR values calculated with the CKD-EPI equation are not accurate in patients wi th acute kidney failure, extremes of body mass or the acutely ill. http://[employer]/[facility]MCnkf Specimen Anatomical Collection Method Collection Time Receive d Time (Source) Location / / Volume Laterality Blood specimen 12/01/2019 3:55 AM 020 4:00 (specimen) EDT AM EDT Resulting Agency Comment Spec In Lab Gretchen Yoon MD CHEMISTRY ORDERABLES Performing Organization Address City/State/[place] [address] (ABNORMAL) Hemogram (12/01/2019 3:55 AM EDT) Analysis Performed At Patho logist Time Signature WBC 11.0 (H) 4.0 - 9.5 [facility] x[facility](3[facility] LABORATORY RBC 3.46 (L) 4.58 - [facility] DOV 5.54 [facility] x10(6)/[facility] LABORATORY Hemoglobin 10.2 (L) 13.7 - [facility] 16.[facility] gm/dL [facility] LABORATORY Hematocrit 31.2 (L) 40.5 - [facility] 48.5 % [facility] LABORATORY MCV 90.2 82.9 - [facility] 93.1 [facility] LABORATORY MCH 29.5 27.5 - MELINA DOV 32.1 pg [facility] LABORATORY MCHC 32.7 32.0 - MELINA DOV 35.7 gm/dL [facility] LABORATORY Platelets 98 (L) 145 - 357 [facility] x10(3)/[facility] LABORATORY RDWSD 47.9 (H) 36.0 - [facility] DOV 45.0 [facility] LABORATORY RDWCV 14.6 (H) 11.4 - [facility] DOV 13.8 % [facility] LABORATORY MPV 12.3 7.6 - 12.9 [facility] nRBC % Auto 0.0 % [facility] LABORATORY nRBC Abs Auto 0.000 0.000 - [place] DOV 0.000 [facility] x10(3)/[facility] LABORATORY Specimen Anatomical Collection Method Collection Time Receive d Time (Source) Location / / Volume Laterality Blood specimen 12/01/2019 3:55 AM 020 4:00 (specimen) EDT AM EDT Resulting Agency Comment Spec In Lab Gretchen Yoon MD HEMATOLOGY ORDERABLES Performing Organization Address City/State/ZIP [place] [address] (ABNORMAL) BLOOD GAS 2 ARTERIAL (11/30/2019 10:39 PM EDT) Analysis Performed At Patho logist Time Signature pH Art 7.45 7.35 - [facility] 7.45 [facility] LABORATORY pCO2 Art 23 (L) 35 - 45 [facility] mmHg [facility] LABORATORY pO2 Art 76 (L) 85 - 104 [facility] mmHg [facility] LABORATORY HCO3 Art 15.3 (L) 20.0 - [facility] 26.0 [facility] mmol/L [facility] LABORATORY BE Art -8.7 (L) -3.0 - 3.0 [facility] mmol/L [facility] LABORATORY Hgb Blood Gas 11.7 (L) 13.7 - [facility] 16.5 gm/dL [facility] LABORATORY O2HB Art 94.2 94.0 - [facility] 97.0 % [facility] LABORATORY COHB Art 0.5 % [facility] FIO2 Art 100 % [facility] LABORATORY PF Ratio Art 76 [facility] LABORATORY Specimen Anatomical Collection Method Collection Time Receive d Time (Source) Location / / Volume Laterality Blood specimen 11/30/2019 10:39 0 (specimen) PM EDT 10:39 PM EDT Gretchen Yoon MD CHEMISTRY ORDERABLES Performing Organization Address City/[facility]/[place] [address] EKG 12 Lead (11/30/2019 [...] (Bezet) Calculated P 12 degrees MUSE SYSTEM [place] Calculated R 19 degrees MUSE SYSTEM [place] Calculated T -47 degrees MUSE SYSTEM [place] INTERPRETATION Sinus rhythm with Premature supraventricular complexes [...] Yoon MD ECG ORDERABLES Performing Organization Address City/[facility]/ZIP Code Phon e Number MUSE SYSTEM (ABNORMAL) Urinalysis Microscopic Exam (11/30/2019 8:40 PM EDT) P athologist Signature RBC UA 27 (H) 0 - 3 /HPF [facility] LABORATORY WBC UA 4 (H) 0 - 3 /HPF [facility] LABORATORY Hyaline Cast 3 (H) 0 - 2 /LPF [facility] LABORATORY Specimen (Source) Anatomical Collection Method Collection Time Re ceived Time Location / / Volume Laterality Urine specimen 11/30/2019 8:40 11/30/2019 obtained via PM EDT 10:51 PM EDT indwelling urinary catheter (specimen) Resulting Agency Comment Spec In Lab Rossy Winn MD URINE ORDERABLES Performing Organization Address City/State/ZIP Code Phon e Number [address] (ABNORMAL) Urinalysis with reflex Culture (11/30/2019 8:40 PM EDT) Patholo gist Method Time Signature Glucose UA Negative Negative [facility] mg/dL [facility] LABORATORY Protein UA Negative Negative [facility] mg/dL [facility] LABORATORY Bilirubin UA Negative Negative [facility] mg/dL [facility] LABORATORY Comment: Clinical correlation required [...] [facility] LAB[facility] Nitrite UA Negative Negative [facility] LABORATORY Leukocytes UA Trace (A) Negative [facility] LABORATORY Appearance UA Clear Clear [facility] LABORATORY Spec [place] UA 1.026 1.006 - 1.030 [facility] LABORATORY Color UA Yellow Yellow [facility] LABORATORY Culture Reflexed No [facility] LABORATORY Specimen (Source) Anatomical Collection Method Collection Time Re ceived Time Location / / Volume Laterality Urine specimen 11/30/2019 8:40 11/30/2019 obtained via PM EDT 10:51 PM EDT indwelling urinary catheter (specimen) Resulting Agency Comment Spec In Lab Gretchen Yoon MD URINE ORDERABLES Performing Organization Address City/[facility]/ZIP Code Phon e Number [address] (ABNORMAL) pro-Brain Natriuretic Peptide (11/30/2019 8:30 PM EDT) P athologist Signature ProBNP 2,802 (H) <=125 MELINA DOV pg/mL [facility] LABORATORY Specimen Anatomical Collection Method Collection Time Receive d Time (Source) Location / / Volume Laterality Blood specimen Venous Draw / 11/30/2019 8:30 PM 2019 8:36 (specimen) Unknown EDT PM EDT Resulting Agency Comment Spec In Lab Rossy Winn MD CHEMISTRY ORDERABLES Performing Organization Address City/[facility]/[place] [address] (ABNORMAL) Troponin (11/30/2019 8:30 PM EDT) athologist Signature Troponin-T 5.04 (H) 0.00 - MELINA MONAE 0.00 ng/mL [facility] LABORATORY Comment: The 99th percentile for Troponin T is le ss than 0.01 ng/mL, any detectable cTnT concentration using this assay should be considered elevated. According to the third universal definit ion of myocardial infarction the following criteria with a clinical prese ntation consistent with acute myocardial ischemia meets the diagnosis for a myocardial infarction (CA). Detection of a rise and/or fall of [...] additional sample may be indicated. Reference: Third Baylis Definition of Myocardial Infarction. Journal of the [place] College of Cardiology 2012;60:1581-98 Specimen Anatomical Collection Method Collection Time Receive d Time (Source) Location / / Volume Laterality Blood specimen Venous Draw / 11/30/2019 8:30 PM 2019 8:36 (specimen) Unknown EDT PM EDT Resulting Agency Comment Spec In Lab Rossy Winn MD CHEMISTRY ORDERABLES Performing Organization Address City/[facility]/[place] [address] [facility] LAB[address]ORY Drive Magnesium (11/30/2019 8:30 PM EDT) athologist Signature Magnesium 0.79 0.69 - 1.07 [facility] mmol/L [facility] LABORATORY Specimen Anatomical Collection Method Collection Time Receive d Time (Source) Location / / Volume Laterality Blood specimen 11/30/2019 8:30 PM 020 8:35 (specimen) EDT PM EDT Resulting Agency Comment Spec In Lab Gretchen Yoon MD CHEMISTRY ORDERABLES Performing Organization Address City/State/ZIP Code Phon e Number [place] [id number] [facility] LABORATORY Drive (ABNORMAL) Basic Metabolic Panel (non-fasting) (11/30/2019 8:30 PM EDT) athologist Signature Glucose Lvl 132 65 - 199 [facility] mg/dL [facility] LABORATORY Comment: Diabetes: >=200 mg/dL plus symp toms BUN 12 10 - 20 mg/dL [facility] LABORATORY Creatinine 0.94 0.80 - [...] Anion Gap 11 5 - 15 mmol/L [facility] LABORATORY Calcium 7.9 (L) 8.5 [...] of body mass or the acutely ill. http://[employer]/[facility]LLnkf eGFR 93 >=60 mL/min/1.73 m?? [facility] LABORATORY Comment: The eGFR was calculated using the CKD-EP I equation. As with all creatinine based estimates of kidney function, eGFR values calculated with the CKD-EPI equation are not accurate in patients wi th acute kidney failure, extremes of body mass or the acutely ill. http://[employer]/[facility]nk[facility] Specimen Anatomical Collection Method Collection Time Receive d Time (Source) Location / / Volume Laterality Blood specimen 11/30/2019 8:30 PM 020 8:35 (specimen) EDT PM EDT Resulting Agency Comment Spec In Lab Gretchen Yoon MD CHEMISTRY ORDERABLES Performing Organization Address [facility] Phon e Number [address] Blood culture (11/30/2019 8:30 PM EDT) Patholo gist Method Time Signature Blood Culture No growth MELINA WHITTENCOCK at 5 days. [facility] Specimen Anatomical Collection Method Collection Time Receive d Time (Source) Location / / Volume Laterality Blood specimen 11/30/2019 8:30 PM 020 9:40 (specimen) EDT PM EDT Comment: L HAND Resulting Agency Comment Spec In Lab Gretchen Yoon MD MICROBIOLOGY - BLOOD ORDERAB LES Performing Organization Address [facility] Phon e Number [address] Blood culture (11/30/2019 8:30 PM EDT) Patholo gist Method Time Signature Blood Culture No growth MELINA MARSHDOV at 5 days. [facility] Specimen Anatomical Collection Method Collection Time Receive d Time (Source) Location / / Volume Laterality Blood specimen 11/30/2019 8:30 PM 020 9:40 (specimen) EDT PM EDT Comment: R HAND Resulting Agency Comment Spec In Lab Gretchen Yoon MD MICROBIOLOGY - BLOOD ORDERAB LES Performing Organization Address City/State/ZIP Code Phon e Number M[place]INA [place] [phone] HOSPITAL LABORATORY Drive XR Chest One View [...] Time Signature pH Art 7.45 7.35 - [facility] 7.45 [facility] LABORATORY pCO2 Art 27 (L) 35 - 45 [facility] mmHg [facility] LABORATORY pO2 Art 68 (L) 85 - 104 [facility] mmHg [facility] LABORATORY HCO3 Art 18.2 (L) 20.0 - [facility] 26.0 [facility] mmol/L [facility] LABORATORY BE Art -5.9 (L) -3.0 - 3.0 [facility] mmol/L [facility] LABORATORY Hgb Blood Gas 12.4 (L) 13.7 - [facility] 16.5 gm/dL [facility] LABORATORY O2HB Art 93.1 (L) 94.0 - [facility] 97.0 % [facility] LABORATORY COHB Art 0.8 % [place] [facility] Flow Art 5.0 LPM [facility] LABORATORY Specimen Anatomical Collection Method Collection Time Receive d Time (Source) Location / / Volume Laterality Blood specimen 11/30/2019 8:09 PM 020 8:09 (specimen) EDT PM EDT Gretchen Yoon MD CHEMISTRY ORDERABLES Performing Organization Address City/State/[place] [address] Angiogram [place] (11/30/2019 4:36 PM EDT) Anatomical [...] without intravenous co ntrast administration. CT angiogram [place] 65 cc Omnipaque 350 administered [...] without intravenous co ntrast administration. CT angiogram [place] 65 cc Omnipaque 350 administered [...] signed by: Angel Luis Barboza MD, [facility] ([phone]), at 11/30/2019 5:04 PM Narrative 11/30/2019 5:04 PM EDT EXAMINATION: CT HEAD WO CONTRAST (GENERIC), CT ANGIOGRAM [place] CLINICAL HISTORY: Headache, intracranial hemorrhage suspected F/U on known ICH - assessing for propaga tion TECHNIQUE: CT head performed without intravenous co ntrast administration. CT angiogram [place] 65 cc Omnipaque 350 administered [...] without intravenous co ntrast administration. CT angiogram [place] 65 cc Omnipaque 350 administered [...] signed by: Angel Luis Barboza MD, [facility] ([phone]), at 11/30/2019 5:04 PM Gretchen Yoon MD [...] 453 ms MUSE SYSTEM (Bezet) Calculated P [place] 52 degrees MUSE SYSTEM Calculated R [place] 5 degrees MUSE SYSTEM Calculated T [place] -60 degrees MUSE SYSTEM INTERPRETATION Sinus rhythm [...] H ? (Age): 1945(74y) Med Rec#: ? [id number] ?Sex: ?M ? [facility] Loc[facility] ? [facility] ?Ht / Wt: ??178(cm)/64(kg) Pt. Loc: ?CCU ? BSA: ?1.8 Study Date: ?? 11/30/2019 ?Pt. Type: Inpatient Tape: ? Referring: LAHEYMICHAELJ Reading: Tello Mejia ([id number]) Safety And Security Manager: Eve Lolita Diagnosis: *ST elevation (STEMI) [...] Vmax ?0.58 ? m/sec ? MV deceleration [id number] ? m sec ? MV A-wave Vmax [...] ? Mid-Inferior ?Akinetic ? Mid-Inferoseptal ?Normal ? [place]-Septal ? Normal ? [place]-Anterior ? Normal ? [place]-Lateral ?Normal ? [place]-Inferior ? Hypokinetic ? [place]-Tip ?Normal ? This report has been electronically sign ed by: _ Tello Mejia MD ? 11/30/2019 12: 45:27 [facility] Procedure Note Tello Mejia MD - 11/30/2019Formatti ng of this note might be different from the original. Procedure: Transthoracic Echocardiogram Patient: RITA Corcoran DOB(Age): [birth year](74y) Med Rec#: [id number] Sex: M Site Loc: [facility] Ht / Wt: 178(cm)/64(kg) Pt. Loc: CCU BSA: 1.8 Study Date: 11/30/2019 Pt. Type: Inpatie nt Tape: Referring: GILMER Reading: Tello Mejia ([id number]) Safety And Security Manager: Eve Lolita Diagnosis: *ST elevation (STEMI) [...] MV E-wave Vmax 0.58 m/sec MV deceleration [id number] msec MV A-wave Vmax 0.74 m/sec MV [...] Hypokinetic Mid-Posterolateral Hypokinetic Mid-Inferior Akinetic Mid-Inferoseptal Normal [place]-Septal Normal [place]-Anterior Normal [place]-Lateral Normal [place]-Inferior Hypokinetic [place]-Tip Normal This report has been electronically sign ed by: _ Tello Mejia MD 11/30/2019 12:45:27 Images reviewed and interpretation verif ied [facility] Cardiac Ultrasound Laboratory Gretchen Yoon MD ECHO [...] regarding this report, please contact [facility] number below. ? Electronically signed by: Angel Luis Barboza MD, [facility] ([phone]), at 11/30/2019 12:04 PM Narrative 11/30/2019 12:04 [...] athologist Signature Magnesium 0.88 0.69 - 1.07 [facility] mmol/L [facility] LABORATORY Specimen Anatomical Collection Method Collection Time Receive d Time (Source) Location / / Volume Laterality Blood specimen Venous Draw / 11/30/2019 8:30 AM 2019 8:37 (specimen) Unknown EDT AM EDT Resulting Agency Comment Spec In Lab Rossy Winn MD CHEMISTRY ORDERABLES Performing Organization Address City/[facility]/[place] [address] (ABNORMAL) CK (11/30/2019 8:30 AM EDT) athologist Signature CK, Total 1,645 (H) 0 - 200 [facility] unit/[facility] Specimen Anatomical Collection Method Collection Time Receive d Time (Source) Location / / Volume Laterality Blood specimen 11/30/2019 8:30 AM 020 8:32 (specimen) EDT AM EDT Resulting Agency Comment Spec In Lab Gretchen Yoon MD CHEMISTRY ORDERABLES Performing Organization Address City/[facility]/[place] [address] (ABNORMAL) Troponin (11/30/2019 8:30 AM EDT) P athologist Signature Troponin-T 8.04 (H) 0.00 - M[place] MONAE 0.00 ng/mL [facility] LABORATORY Comment: result rechecked-rancho The 99th percentile for Troponin T is le ss than 0.01 ng/mL, any detectable cTnT concentration using this assay should be considered elevated. According to the third universal definit ion of myocardial infarction the following criteria with a clinical prese ntation consistent with acute myocardial ischemia meets the diagnosis for a myocardial infarction (CA). Detection of a rise and/or fall of [...] additional sample may be indicated. Reference: Third Baylis Definition of Myocardial Infarction. Journal of the [place] College of [employer]iology 2012;60:1581-98 Specimen Anatomical Collection Method Collection Time Receive d Time (Source) Location / / Volume Laterality Blood specimen 11/30/2019 8:30 AM 020 8:32 (specimen) EDT AM EDT Resulting Agency Comment Spec In Lab Gretchen Yoon MD CHEMISTRY ORDERABLES Performing Organization Address City/State/ZIP Code [place] [address] EKG 12 Lead (11/30/2019 7:57 AM EDT) Component Value Ref Range Test Analysis Performed Pathologis t Method Time At Signature Ventricular rate 64 BPM MUSE SYSTEM Atrial Rate 64 BPM MUSE SYSTEM P-R Interval 132 ms MUSE SYSTEM QRS Duration 78 ms MUSE SYSTEM Q-T Interval 420 ms MUSE SYSTEM QTC Calculated 433 ms MUSE SYSTEM (Bezet) Calculated P [place] 28 degrees MUSE SYSTEM Calculated R [place] 7 degrees MUSE SYSTEM Calculated T [place] -33 degrees MUSE SYSTEM INTERPRETATION Sinus rhythm [...] Signature Glucose 147 (H) 65 - 99 [facility] Fasting mg/dL [facility] LABORATORY Comment: ?Fasting* Glucose Interpretive [...] of Diabetes Mellitus, Position Statement from the [place] Diabetes Association. ??Diabete s Care, Volume 33, Supplement 1, Jul 2009 BUN 13 10 - 20 mg/dL [facility] LABORATORY Creatinine 0.90 0.80 - [...] Anion Gap 11 5 - 15 mmol/L [facility] LABORATORY Calcium 7.5 (L) 8.5 [...] of body mass or the acutely ill. http://[employer]/[facility]LLnk[facility] eGFR 98 >=60 mL/min/1.73 m?? [facility] LABORATORY Comment: The eGFR was calculated using the CKD-EP I equation. As with all creatinine based estimates of kidney function, eGFR values calculated with the CKD-EPI equation are not accurate in patients wi th acute kidney failure, extremes of body mass or the acutely ill. http://[employer]/[facility] Specimen Anatomical Collection Method Collection Time Receive d Time (Source) Location / / Volume Laterality Blood specimen 11/30/2019 2:15 AM 020 2:29 (specimen) EDT AM EDT Resulting Agency Comment Spec In Lab Gretchen Yoon MD CHEMISTRY ORDERABLES Performing Organization Address City/State/[place] [address] (ABNORMAL) Hemogram (11/30/2019 2:15 AM EDT) Analysis Performed At Patho logist Time Signature WBC 11.2 (H) 4.0 - 9.5 [facility] x10(3)/[facility] LABORATORY RBC 3.83 (L) 4.58 - [facility] 5.54 [facility] x10(6)/[facility] LABORATORY Hemoglobin 11.4 (L) 13.7 - [facility] 16.5 gm/dL [facility] LABORATORY Hematocrit 35.2 (L) 40.5 - MELINA WHITTENCOCK 48.5 % [facility] LABORATORY MCV 91.9 82.9 - MELINA DOV 93.1 [facility] LABORATORY MCH 29.8 27.5 - MELINA MARSHDOV 32.1 pg [facility] LABORATORY MCHC 32.4 32.0 - MELINA MARSHDOV 35.7 gm/dL [facility] LABORATORY Platelets 122 (L) 145 - 357 [facility] x10(3)/[facility] LABORATORY RDWSD 49.8 (H) 36.0 - MELINA MARSHDOV 45.0 [facility] LABORATORY RDWCV 14.8 (H) 11.4 - [facility] DOV 13.8 % [facility] LABORATORY MPV 12.1 7.6 - 12.9 [facility] LABORATORY nRBC % Auto 0.0 % [facility] LABORATORY nRBC Abs Auto 0.000 0.000 - MELINA DOV 0.000 [facility] x10(3)/[facility] LABORATORY Specimen Anatomical Collection Method Collection Time Receive d Time (Source) Location / / Volume Laterality Blood specimen 11/30/2019 2:15 AM 020 2:29 (specimen) EDT AM EDT Resulting Agency Comment Spec In Lab Gretchen Yoon MD HEMATOLOGY ORDERABLES Performing Organization Address City/[facility]/[place] [address] (ABNORMAL) CK (11/30/2019 2:15 AM EDT) athologist [facility] CK, Total 1,969 (H) 0 - 200 MELIAN DOV unit/L [facility] LABORATORY Specimen Anatomical Collection Method Collection Time Receive d Time (Source) Location / / Volume Laterality Blood specimen 11/30/2019 2:15 AM 020 2:29 (specimen) EDT AM EDT Resulting Agency Comment Spec In Lab Gretchen Yoon MD CHEMISTRY ORDERABLES Performing Organization Address City/[facility]/[place] [address] (ABNORMAL) Troponin (11/30/2019 2:15 AM EDT) athologist Signature Troponin-T 11.73 (H) 0.00 - MELINA MONAE 0.00 ng/mL [facility] LABORATORY Comment: result rechecked-slw The 99th percentile for Troponin T is le ss than 0.01 ng/mL, any detectable cTnT concentration using this assay should be considered elevated. According to the third universal definit ion of myocardial infarction the following criteria with a clinical prese ntation consistent with acute myocardial ischemia meets the diagnosis for a myocardial infarction (CA). Detection of a rise and/or fall of [...] additional sample may be indicated. Reference: Third Baylis Definition of Myocardial Infarction. Journal of the [place] [employer] 2012;60:1581-98 result rechecked- The 99th percentile for Troponin T is le ss than 0.01 ng/mL, any detectable cTnT concentration using this assay should be considered elevated. According to the third universal definit ion of myocardial infarction the following criteria with a clinical prese ntation consistent with acute myocardial ischemia meets the diagnosis for a myocardial infarction (CA). Detection of a rise and/or fall of [...] additional sample may be indicated. Reference: Third Baylis Definition of Myocardial Infarction. Journal of the [place] [employer] 2012;60:1581-98 Corrected from 11.73 ng/ml [HI] on 11/29 3:11:51 EDT by Debi Hawley Specimen Anatomical Collection Method Collection Time Receive d Time (Source) Location / / Volume Laterality Blood specimen 11/30/2019 2:15 AM 020 2:29 (specimen) EDT AM EDT Resulting Agency Comment Spec In Lab Gretchen Yoon MD CHEMISTRY ORDERABLES Performing Organization Address City/[facility]/ZIP Code Phon e Number [address] LDL Cholesterol, Direct (11/30/2019 2:15 AM EDT) P athologist Signature LDL Chol 156 mg/dL [facility] LABORATORY Comment: Lowest Risk: <100 mg/dL Lower Risk: 100-129 mg/dL Borderline High Risk: 130-159 mg/dL High Risk: 160-189 mg/dL Very High Risk: >ed=456 mg/dL Specimen Anatomical Collection Method Collection Time Receive d Time (Source) Location / / Volume Laterality Blood specimen 11/30/2019 2:15 AM 020 2:29 (specimen) EDT AM EDT Resulting Agency Comment Spec In Lab Gretchen Yoon MD CHEMISTRY ORDERABLES Performing Organization Address City/[facility]/ZIP [facility] [place] [address] (ABNORMAL) Hemoglobin A1c (11/30/2019 [...] Avg Gluc See note mg/dL MELINA MONAE [facility] LABORATORY Comment: Estimated Average Glucose not appropriat [...] into estimated average glucose values. ??Diabetes Care 2008:31(8):5627-3465. Specimen Anatomical Collection Method Collection Time Receive d Time (Source) Location / / Volume Laterality Blood specimen 11/30/2019 2:15 AM 020 2:29 (specimen) EDT AM EDT Resulting Agency Comment Spec In Lab Gretchen Yoon MD CHEMISTRY ORDERABLES Performing Organization Address City/State/ZIP Code [place] [address] Lipid Panel (Reflex Direct LDL) (11/30/2019 2:15 AM EDT) athologist Signature Chol, Total 195 mg/dL [facility] LABORATORY Comment: Lower Risk: <200 mg/dL Average Risk: 200-239 mg/dL Higher Risk: >yk=541 mg/dL Triglycerides 93 mg/dL [facility] LABORATORY Comment: Average Risk/Lower Risk: <150 mg/dL Borderline High Risk: 150-199 mg/dL High Risk: 200-499 mg/dL Very High Risk: >le=869 mg/dL HDL 32 mg/dL [facility] LABORATORY Comment: Males: ?? Higher Risk: <40 mg/dL Females: ?? HIgher Risk: <50 mg/dL LDL Cholesterol 144 mg/dL [facility] LABORATORY Comment: Lowest Risk: <100 mg/dL Lower Risk: 100-129 mg/dL Borderline High Risk: 130-159 mg/dL High Risk: 160-189 mg/dL Very High Risk: >dt=661 mg/dL Chol/HDL Ratio 6.1 ratio [facility] LABORATORY Lipid Interpretation See Note [facility] LABORATORY Comment: Lipid management should be guided by a p atient? s ASCVD risk, goals and preferences. ACC/AHA Guidelines recommend high intens ity statin if clinical ASCVD or LDL greater than or equal to 190 mg/dL. http://[employer]/IHP-AAI-Lavdjelnn Adults aged 40-75 with LDL 70-189 mg/dL should have their 10 year ASCVD risk estimated with the ACC/AHA ASCVD risk es timator http://tools.acc.org/ZNRQL-Yfed-Decnnwxx r/ Statin should be discussed if risk [...] Organization Address City/State/ZIP Code Phon e Number [address] (ABNORMAL) CK (11/29/2019 6:35 PM EDT) athologist Signature CK, Total 2,780 (H) 0 - 200 [facility] unit/L [facility] LABORATORY Specimen Anatomical Collection Method Collection Time Receive d Time (Source) Location / / Volume Laterality Blood specimen 11/29/2019 6:35 PM 020 6:53 (specimen) EDT PM EDT Resulting Agency Comment Spec In Lab Gretchen Yoon MD CHEMISTRY ORDERABLES Performing Organization Address City/[facility]/[place] [address] (ABNORMAL) Troponin (11/29/2019 6:35 PM EDT) athologist Signature Troponin-T 17.60 (H) 0.00 [facility] ng/mL [facility] LABORATORY Comment: result rechecked-az The 99th percentile for Troponin T is le ss than 0.01 ng/mL, any detectable cTnT concentration using this assay should be considered elevated. According to the third universal definit ion of myocardial infarction the following criteria with a clinical prese ntation consistent with acute myocardial ischemia meets the diagnosis for a myocardial infarction (CA). Detection of a rise and/or fall of [...] additional sample may be indicated. Reference: Third Baylis Definition of Myocardial Infarction. Journal of the [place] College [employer]iology 2012;60:1581-98 Specimen Anatomical Collection Method Collection Time Receive d Time (Source) Location / / Volume Laterality Blood specimen 11/29/2019 6:35 PM 020 6:53 (specimen) EDT PM EDT Resulting Agency Comment Spec In Lab Gretchen Yoon MD CHEMISTRY ORDERABLES Performing Organization Address City/State/ZIP Code Phon e Number [place] [id number] HOSPITAL LABORATORY Drive EKG 12 Lead (11/29/2019 3:58 PM EDT) [facility] gist Method Time Signature Ventricular rate 73 BPM MUSE SYSTEM Atrial Rate 73 BPM MUSE SYSTEM P-R Interval 152 ms MUSE SYSTEM QRS Duration 84 ms MUSE SYSTEM Q-T Interval 404 ms MUSE SYSTEM QTC Calculated 445 ms MUSE SYSTEM (Bezet) Calculated P [place] 50 degrees MUSE SYSTEM Calculated R [place] -4 degrees MUSE SYSTEM Calculated T [place] 19 degrees MUSE SYSTEM INTERPRETATION Sinus rhythm [...] Concepcion MD ECG ORDERABLES Performing Organization Address City/[facility]/ZIP Code Phon e Number MUSE SYSTEM [...] CLINICAL HISTORY: stemi (as entered by o [facility] provider in the order requisition) [...] lung apex is excluded from the imaged [id number]. IMPRESSION: 1. ??New right internal jugular pulmonar [...] lung apex is excluded from the imaged [id number]. Procedure Note Estefani Harris MD - 11/29/2019Formattin [...] lung apex is excluded from the imaged [id number]. IMPRESSION 1. New right internal jugular pulmonary [...] (ABNORMAL) Differential, Automated (11/29/2019 2:32 PM EDT) [facility] Method Time Signature Neutrophils % 83.8 % [facility] LABORATORY Neutr Abs (ANC) 12.12 (H) 1.70 - [facility] 6.10 [facility] x10(3)/[facility] LABORATORY Lymphocytes % 9.1 % [facility] LABORATORY Lymphocytes Abs 1.3 0.9 - 3.2 [facility] x10(3)/[facility] LABORATORY Monocytes % 6.2 % [facility] LABORATORY Monocyte Abs 0.9 0.3 - 0.9 [facility] x10(3)/[facility] LABORATORY Eosinophils % 0.0 % [facility] LABORATORY Eosinophils Abs 0.0 0.0 - 0.4 [facility] x10(3)/[facility] LABORATORY Basophils % 0.3 % [facility] LABORATORY Basophils Abs 0.0 0.0 - 0.1 [facility] x10(3)/[facility] LABORATORY Immature Gran % 0.60 % [place] [...] Abs 0.08 (H) 0.00 - 0.04 x10(3)/[facility] LABORATORY Specimen Anatomical Collection Method Collection Time Receive d Time (Source) Location / / Volume Laterality Blood specimen 11/29/2019 2:32 PM 020 2:55 (specimen) EDT PM EDT Resulting Agency Comment Spec In Lab Darrell Glasgow MD HEMATOLOGY ORDERABLES Performing Organization Address City/State/[place] [address] (ABNORMAL) Hemogram (11/29/2019 2:32 PM EDT) Analysis Performed At Patho logist Time Signature WBC 14.5 (H) 4.0 - 9.5 [facility] x10(3[facility] LABORATORY RBC 4.53 (L) 4.58 - [facility] DOV 5.54 [facility] x10(6)/[facility] LABORATORY Hemoglobin 13.1 (L) 13.7 - [facility] gm/dL [facility] LABORATORY Hematocrit 40.8 40.5 - [facility] DOV 48.5 % [facility] LABORATORY MCV 90.1 82.9 - [facility] 93.1 [facility] LABORATORY MCH 28.9 27.5 - [facility] DOV 32.1 pg [facility] LABORATORY MCHC 32.1 32.0 - [facility] DOV 35.7 gm/dL [facility] LABORATORY Platelets 184 145 - 357 [facility] x10(3)/[facility] LABORATORY RDWSD 47.8 (H) 36.0 - [facility] DOV 45.0 [facility] LABORATORY RDWCV 14.5 (H) 11.4 - [facility] DOV 13.8 % [facility] LABORATORY MPV 11.9 7.6 - 12.9 [facility] LABORATORY nRBC % Auto 0.0 % [facility] LABORATORY nRBC Abs Auto 0.000 0.000 - MELINA WHITTENCOCK 0.000 [facility] x10(3)/[facility] LABORATORY Specimen Anatomical Collection Method Collection Time Receive d Time (Source) Location / / Volume Laterality Blood specimen 11/29/2019 2:32 PM 020 2:55 (specimen) EDT PM EDT Resulting Agency Comment Spec In Lab Darrell Glasgow MD HEMATOLOGY ORDERABLES Performing Organization Address City/[facility]/ZIP Code Phon e Number [address] (ABNORMAL) CK (11/29/2019 2:32 PM EDT) athologist Signature CK, Total 3,282 (H) 0 - 200 [facility] unit/L [facility] LABORATORY Specimen Anatomical Collection Method Collection Time Receive d Time (Source) Location / / Volume Laterality Blood specimen 11/29/2019 2:32 PM 020 2:32 (specimen) EDT PM EDT Resulting Agency Comment Spec In Lab Gretchen Yoon MD CHEMISTRY ORDERABLES Performing Organization Address City/[facility]/[place] [address] (ABNORMAL) Troponin (11/29/2019 2:32 PM EDT) athologist Signature Troponin-T 20.33 (H) 0.00 - MELINA MONAE 0.00 ng/mL [facility] LABORATORY Comment: The 99th percentile for Troponin T is le ss than 0.01 ng/mL, any detectable cTnT concentration using this assay should be considered elevated. According to the third universal definit ion of myocardial infarction the following criteria with a clinical prese ntation consistent with acute myocardial ischemia meets the diagnosis for a myocardial infarction (CA). Detection of a rise and/or fall of [...] additional sample may be indicated. Reference: Third Baylis Definition of Myocardial Infarction. Journal of the [place] College of Cardiology 2012;60:1581-98 Specimen Anatomical Collection Method Collection Time Receive d Time (Source) Location / / Volume Laterality Blood specimen 11/29/2019 2:32 PM 020 2:32 (specimen) EDT PM EDT Resulting Agency Comment Spec In Lab Gretchen Yoon MD CHEMISTRY ORDERABLES Performing Organization Address [facility] [place] [address] (ABNORMAL) APTT (11/29/2019 2:32 PM EDT) P athologist Signature PTT 114 25 - 37 [facility] (Critical) [facility] LABORATORY [...] Yoon MD HEMATOLOGY ORDERABLES Performing Organization Address City/[facility]/[place] [address] (ABNORMAL) Prothrombin Time (11/29/2019 2:32 PM EDT) P athologist Signature PT 13.5 (H) 9.4 - 12.5 [facility] LABORATORY INR 1.2 [facility] [...] Organization Address City/State/[place] [address] (ABNORMAL) Hepatic Function Panel (11/29/2019 2:32 PM EDT) athologist Signature Total Protein 6.3 6.1 - 8.0 [facility] DOV gm/dL [facility] LABORATORY Albumin 3.6 3.2 - 5.2 MELINA DOV gm/dL [facility] LABORATORY AST 257 (H) 0 - 39 [facility] DOV unit/L [facility] LABORATORY ALT 50 0 - 55 [facility] DOV unit/L [facility] LABORATORY Alk Phos 84 40 - 130 [facility] DOV unit/L [facility] LABORATORY Total 0.3 0.2 - 1.3 MELINA DOV Bilirubin mg/dL [facility] LABORATORY Bili, Direct 0.1 0.0 - 0.3 [facility] DOV mg/dL [facility] LABORATORY Specimen Anatomical Collection Method Collection Time Receive d Time (Source) Location / / Volume Laterality Blood specimen 11/29/2019 2:32 PM 020 2:32 (specimen) EDT PM EDT Resulting Agency Comment Spec In Lab Gretchen Yoon MD CHEMISTRY ORDERABLES Performing Organization Address City/State/[place] [address] (ABNORMAL) pro-Brain Natriuretic Peptide (11/29/2019 2:32 PM EDT) P athologist Signature ProBNP 272 (H) <=125 pg/mL [facility] LABORATORY Specimen Anatomical Collection Method Collection Time Receive d Time (Source) Location / / Volume Laterality Blood specimen 11/29/2019 2:32 PM 020 2:32 (specimen) EDT PM EDT Resulting Agency Comment Spec In Lab Gretchen Yoon MD CHEMISTRY ORDERABLES Performing Organization Address City/[facility]/ZIP Code Phon e Number [address] Magnesium (11/29/2019 2:32 PM EDT) athologist Signature Magnesium 0.76 0.69 - 1.07 [facility] mmol/L [facility] LABORATORY Specimen Anatomical Collection Method Collection Time Receive d Time (Source) Location / / Volume Laterality Blood specimen 11/29/2019 2:32 PM 020 2:32 (specimen) EDT PM EDT Resulting Agency Comment Spec In Lab Gretchen Yoon MD CHEMISTRY ORDERABLES Performing Organization Address City/[facility] [place] [address] (ABNORMAL) Basic Metabolic Panel (non-fasting) (11/29/2019 2:32 PM EDT) athologist Signature Glucose Lvl 149 65 - 199 [facility] mg/dL [facility] LABORATORY Comment: Diabetes: >=200 mg/dL plus symp toms BUN 16 10 - 20 mg/dL [facility] LABORATORY Creatinine 0.94 0.80 - [...] Anion Gap 15 5 - 15 mmol/L [facility] LABORATORY Calcium 8.0 (L) 8.5 [...] of body mass or the acutely ill. http://[employer]/[facility]LLnkf eGFR 93 >=60 mL/min/1.73 m?? [facility] LABORATORY Comment: The eGFR was calculated using the CKD-EP I equation. As with all creatinine based estimates of kidney function, eGFR values calculated with the CKD-EPI equation are not accurate in patients wi th acute kidney failure, extremes of body mass or the acutely ill. http://[employer]/[facility] STIL[facility]LLnkf Specimen Anatomical Collection Method Collection Time Receive d Time (Source) Location / / Volume Laterality Blood specimen 11/29/2019 2:32 PM 020 2:32 (specimen) EDT PM EDT Resulting Agency Comment Spec In Lab Gretchen Yoon MD CHEMISTRY ORDERABLES Performing Organization Address City/State/ZIP Code Phon e Number [place] [id number] HOSPITAL LABORATORY Drive EKG 12 Lead (11/29/2019 11:38 AM EDT) [facility] gist Method Time Signature Ventricular rate 60 BPM MUSE SYSTEM Atrial Rate 60 BPM MUSE SYSTEM P-R Interval 140 ms MUSE SYSTEM QRS Duration 86 ms MUSE SYSTEM Q-T Interval 474 ms MUSE SYSTEM QTC Calculated 474 ms MUSE SYSTEM (Bezet) Calculated P [place] 48 degrees MUSE SYSTEM Calculated R [place] 14 degrees MUSE SYSTEM Calculated T [place] 58 degrees MUSE SYSTEM INTERPRETATION Normal sinus [...] Laterality Volume Narrative 11/30/2019 1:09 PM EDT ?[facility] ? Cardiac Cathete rization/Intervention Report ? Patient Name: Angel Luis Salinas. ? Procedure Date: 11/29/2019 ? A #: [id number] ? Primary Physician: Gretchen Yoon ? Case #: [id number] ? File Name: [id number] ? Catheterization Order Number: [id number] ? [facility] ? Final Report [place], [place] ? Patient Name: ? Angel Luis Salinas ? ID#: ?[id number] ? : ?1945 ? Procedure Date: ? [...] procedure was Emergent. The indication for ?the dentures lab technician visit is ACS less than or [...] dose administered prior to arrival in the dentures lab technician. ?Recommended anti-platelet/anti- thrombotic regimen: ?Continue aspirin 81 mg daily fo r indefinitely. ?Continue clopidogrel 75 mg marco a y for 12 months then stop. ?These recommendations are made at the time of the intervention. Patient ?and provider preferences or a c hanging clinical situation may require ?modification of this regimen. C onsult [facility] Interventional Cardiology for ?questions. ? Conclusions: ?* [...] Gretchen Yoon M.D. ? Electronically Signed by: Gretcehn lockett M.D. ? Report Finalized: 11/30/2019 ??13:04 ? Report Last Ammended: 01/01/2020 ??16:32 ? Procedure Note Gretchen Yoon MD - 01/01/2020Formatt ing of this note might be different from the original. [facility] Cardiac Catheterization/Intervention Re port Patient Name: Angel Luis Salinas Procedure Date: 11/29/2019 A #: [id number] Primary Physician: Gretchen Yoon Case #: [id number] File Name: [id number] Catheterization Order Number: [id number] [facility] Final Report [place], [place] Patient Name: Angel Luis Salinas ID#: [id number] : 1945 Procedure Date: November 29, [...] was designated as ASA Class IV. The [facility] clinical frailty scale is 4: Vulnerable. Diagnostic Tests: Electrocardiography: EKG was assessed by ECG. EKG was Abnorm al. EKG showed ST Deviation >= 0.5 mm. Medications Prior to Procedure: Aspirin. Indications for Diagnostic Cath: The priority of the diagnostic procedur e was Emergent. The indication for the dentures lab technician visit is ACS less than or [...] this intervention was 10%. The final TI CA flow was 2. Distal 90% Thrombectomy and [...] this intervention was 10%. The final TI CA flow was 2. Vascular Access: Vascular Access [...] administered prior t o arrival in the dentures lab technician. Recommended anti-platelet/anti-thrombot ic regimen: Continue aspirin 81 mg daily for indefi nitely. Continue clopidogrel 75 mg daily for 12 months then stop. These recommendations are made at the t loyda of the intervention. Patient and provider preferences or a changing clinical situation may require modification of this regimen. Consult D [facility] Interventional Cardiology for questions. Conclusions: * Two [...] Signature POC pH 7.33 (L) 7.35 - [facility] 7.45 [facility] LABORATORY POC PCO2 33 (L) 35 - 45 [facility] mmHg [facility] LABORATORY POC PO2 56 (L) 85 - 104 [facility] LABORATORY POC Base Excess -8.0 (L) -3.0 - 3.0 [facility] K mmol/L [facility] LABORATORY POC HCO3 17.4 (L) 20.0 - [facility] 26.0 [facility] mmolJ[facility] LAB[facility] POC Sodium 137 135 - 145 [facility] mmol/L [facility] LABORATORY POC Potassium 3.6 3.5 - 5.0 [facility] mmol/L [facility] LABORATORY POC Ionized Ca 1.15 1.15 - [facility] 1.33 [facility] LABORATORY POC Hematocrit 37.0 (L) 40.0 - [facility] 51.0 % [facility] LABORATORY POC Calc Hgb 12.6 (L) 13.7 - [facility] 17.5 gm/dL [facility] LABORATORY Comment: The calculation of [...] Organization Address City/State/[place] [address] EKG 12 Lead (11/29/2019 9:01 AM EDT) Component Value Ref Range Test Analysis Performed Pathologis t Method Time At Signature Ventricular rate 80 BPM MUSE SYSTEM Atrial Rate 79 BPM MUSE SYSTEM QRS Duration 94 ms MUSE SYSTEM Q-T Interval 436 ms MUSE SYSTEM QTC Calculated 502 ms MUSE SYSTEM (Bezet) Calculated R [place] 54 degrees MUSE SYSTEM Calculated T [place] 80 degrees MUSE SYSTEM INTERPRETATION Normal sinus rhythm MUSE SYSTEM Inferior infarct , possibly acute Prolonged QT * ACUTE CA ?? 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
Administer for serum potassium (mMol/L) of 3.9 - 4 See instructions for Potassium Protocol in online policies.
Routine Or potassium chloride ER (K-Dur/Klor-Con) tablet 40 mEqJump to med 40 mEq, Oral, EVERY 4 HOURS PRN, Startin g [place] 11/30/19 at 2016, Until Sun12/08/19 at 1811, hypokalemia
Administer for serum potassium (mMol/L) of 3.6 - 3.8 See instructions for Potassium Protocol in online policies.
Routine documented in this encounter Care Teams Production Illustrator Relationship Specialty Start Date End Date Frnace Lam MD PCP - General 05/02/13 02/04/20 [address] [place] [address] documented as of this encounter
--- OUTSIDE RECORDS SUMMARY | 2022-06-01 11:04 | XMS_ITS | Encounter Summary ---
:1945 Author Organization [facility] [place] [address] Care Team Providers Name Role Phone France Lam MD Primary Care Provider Encounter Details Date Type Department Care Team Description 11/30/2019 Orders Only Cardiology [facility] [place] [address] Social History Tobacco Use Types Packs/Day Years Used Date Smoking Tobacco: Every Day Cigarettes 0.5 Cigars Sex Assigned at Date Recorded Not on file documented as of this encounter Plan of Treatment Upcoming Encounters Date Type Specialty Care Team Description 06/30/2022 Office Visit Endocrinology EchtAlan MD [facility] ENDOCRINOLOGY [place], [place] [address] (Wo rk) documented as of [...] fajardo ? (Age): 1945(74y) Med Rec#: ? [id number] ?Sex: ?M ? Site Loc: ? Ht / Wt: ??(cm)/ (kg) ? Pt. Loc: ? Study Date: ?? 11/29/2019 ?Pt. Type: Tape: ? Referring: Faustino Garduno Reading: Dawit Mejia ([id number]) Engineer Second Assistant: USNereyda Bike Technician: Cedric Eric ([id number]) Interpreting Fellow: Cedric Eric ([id number]) Diagnosis: SUMMARY: 1. 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 2. [...] ? Mid-Inferior ?Akinetic ? Mid-Inferoseptal ?Hypokinetic ? [place]-Septal ? Normal ? [place]-Anterior ? Normal ? [place]-Lateral ?Normal ? [place]-Inferior ? Hypokinetic ? [place]-Tip ?Normal ? This report has been electronically sign ed by: _ Dawit Sebastian. MD Roberto ? 11/30/2019 12: 53:59 Images reviewed and interpretation veraustin casey [facility] Procedure Note Dawit Mejia MD - 11/30/2019Formatti ng of this note might be different from the original. Procedure: Transthoracic Echocardiogram Patient: domenica ACOSTA(Age): [age]y) Med Rec#: [id number] Sex: M Site Loc: Ht / Wt: (cm)/ (kg) Pt. Loc: Study Date: 11/29/2019 Pt. Type: Tape: Referring: Faustino Garduno Reading: Dawit Mejia ([id number]) Engineer Second Assistant: USR Bike Technician: Cedric Eric ([id number]) Interpreting Fellow: Cedric Eric ([id number]) Diagnosis: SUMMARY: 1. 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 2. [...] Normal Mid-Posterolateral Akinetic Mid-Inferior Akinetic Mid-Inferoseptal Hypokinetic [place]-Septal Normal [place]-Anterior Normal [place]-Lateral Normal [place]-Inferior Hypokinetic [place]-Tip Normal This report has been electronically sign ed by: _ Dawit Mejia MD 11/30/2019 12:53:59 Images reviewed and interpretation [facility] Unknown ECHO ORDERABLES documented in this encounter Visit Diagnoses Not on filedocumented in this encounter Care Teams Color Room Attendant Relationship Specialty Start Date End Date France Lam MD PCP - General 05/02/13 02/04/20 [address] [place] [address] documented as of this encounter
--- OUTSIDE RECORDS SUMMARY | 2022-06-01 11:05 | XMS_ITS | Encounter Summary ---
:1945 [place] [address] Care Team Providers Name Role Phone France Lam MD Primary Care Provider Encounter Details Date Type Department Care Team Description 11/29/[address] [facility] Silvio piedra MD [facility] Devin [place] [address] [place] [address] [phone] (Wo rk) Social History Tobacco Use Types [...] EKG: Inferior STEMI Silvio Real MD Administrative Manager PGY-4 11/29/2019 documented in this encounter Plan of Treatment Upcoming Encounters Date Type Specialty Care Team Description 06/30/2022 Office Visit Endocrinology Echt, Alan Beatty MD [facility] ENDOCR[facility] [place], [place] [address] (Wo rk) documented as of this encounter Visit Diagnoses Not on filedocumented in this encounter Care Teams Sexer Relationship Specialty Start Date End Date France Lam MD PCP - General 05/02/13 02/04/20 [address] [place] [address] documented as of this encounter
--- OUTSIDE RECORDS SUMMARY | 2022-06-01 11:05 | XMS_ITS | Encounter Summary ---
:1945 Author Organization [facility] [address] Care Team Providers Name Role Phone France Lam MD Primary Care Provider Reason for Visit Auth/Cert Specialty Diagnoses / Procedures Referred By Contact Refer red To Contact Diagnoses STEMI (ST elevation myocardial infarction) STEMI Procedures CARDIAC CATHETERIZATION Referral ID Status Reason Start Date Expiration Date Visits Requ ested Visits Authorized [id number] 1 1 Encounter Details Date Type Department Care Team Description 11/29/2019 Surgery Engineering Psychologist Gretchen Corral, CARDIAC CATHETERIZATION [facility] [place] [address] [place] [id number] [phone] (Wo rk) Social History Tobacco Use Types [...] months on: antiplatelet therapy at discretion of activity therapy teacher - Repeat TTE in 3 months to reassess LV function - Repeat BMP in 1-2 weeks given recent start lisinopril - Referred to lipid clinic for consideration of PCSK-9 inhibitor given STEMI with intolerance of statins - Started on amiodarone this admission for recurrent rapid atrial flutter with rates ~170, recommendcontinued assessment of necessity of rhythm control strategy with activity therapy teacher - Amiodarone monitoring recommendations as below - [...] please contact your inpatient physician through the [facility] Resident Services Supervisor . Issues after hours and on [...] took two full strength aspirinand came to [facility] ED. At there was [...] and Compazine. He was transferred directly to [facility] via [facility] for further management. Patient had an emergent PCI with 3 MACARIO stents placed to his RCA, with mild disease of LCX (report pending) at [facility]. He was found to be persistently hypotensive requiring Levo up to 10mcg/min. He was transferred to [facility] after the cath procedure. Bedside RHC showed CI 2.12, PAWP 11, PAP 38/15 indicating hypovolemic state. He received 1L bolus of NS with improvement of his blood pressure to 124/61. History of PAD, HLD - had side reactions to statins - so taking niacin and red rye grain. Chronic active smoker with more than 65 pack years. Family history of [place] in father and two uncles. He's takingbaby [...] drip as described above. On arrival at [facility] he was taken [...] the medication cost was prohibitive at a non[place] pharmacy. He was strongly encouraged to quit [...] priority for the procedure was Emergent. [facility] [...] number below. Electronically signed by: Estefani Harris [facility] ([phone]), at 11/29/2019 4:[address] Head wo Contrast (Generic) (Exam End: 11/30/2019 10:41 AM) Impression Focal hemorrhage with small amount of adjacent edema projecting in the region of the left optic tract. Thank you for letting us participate in the care of this patient. For questions regarding this report, please contact the number below. Electronically signed by: Angel Luis Barboza MD, [facility] ([phone]), at 11/30/2019 12:[address] Head wo [...] signed by: [facility] ([phone]), at 11/30/2019 5:[address] Angiogram [place] of [place] (Exam End: 11/30/2019 4:36 PM) Impression Head CT: Stable hemorrhage in the region of the left optic tract. CTA: Negative exam. No abnormal vasculature in the area of hemorrhage. Thank you for letting us participate in the care of this patient. For questions regarding this report, please contact the number below. Electronically signed by: Angel Luis Barboza MD, [facility] ([phone]), at 11/30/2019 5:04 PM MRI Brain wo [...] Electronically signed by: Angel Luis Barboza MD, [facility] ([phone]), at 12/01/2019 8:02 PM XR Chest One [...] number below. Electronically signed by: Latoya Ivey [facility] ([phone]), at 11/30/2019 8:[address] Head wo [...] number below. Electronically signed by: Merari Collins [facility] ([phone]), at 12/01/2019 3:53 PM XR Chest One View (Exam End: 12/02/2019 1:00 PM) Impression Slightly increased small bibasilar pleural effusions and atelectasis. Thank you for letting us participate in the care of this patient. For questions regarding this report, please contact the number below. Electronically signed by: Ashly Marley [facility] ([phone]), at 12/02/2019 1:[address] Cardiac for [...] number below. Electronically signed by: Roselyn Luciano [facility] ([phone]), at 12/04/2019 6:16 PM MRI Brain wwo Contrast (Generic) (Exam End: 12/05/2019 7:59 PM) Impression No significant interval change. Thank you for letting us participate in the care of this patient. For questions regarding this report, please contact the number below. Electronically signed by: Merari Collins [facility] ([phone]), at 12/05/2019 10:[address] Head wo [...] number below. Electronically signed by: Merari Collins [facility] ([phone]), at 12/06/2019 10:06 PM Pending Studies and Lab Data: N/A Discharge Conditions/Prognosis: stable Discharge to: home Updated Allergies/ADRs: Allergies Allergen Reactions ??? Penicillins Pt doesn't remember reaction ??? Vuetklr-Glj-Kat Reductase Inhibitors Stiff neck, upset stomach, back [...] medications at another hospital and then at [facility] you had a [...] FOR ONE MONTH AND THEN STOP. Your activity therapy teacher may tell you to start this medication again after one year. Clopidogrel (Plavix) 75 mg daily - This medication will help prevent clots from forming in your blood, which will help protect the stent that was placed in your heart vessel. TAKE THIS FOR ONE YEAR ANDTHEN DISCUSS WITH YOUR CERTIFIED DENTAL ASSISTANT WHETHER TO STOP. Amiodarone 400mg twice [...] follow up: Your primary care provider and activity therapy teacher will manage your blood thinner (apixaban). You do not need lab monitoring of this medication. Diet: Please consume a healthy diet low in cholesterol Follow up Appointments: 12/10/2019 at 3:10PM with PCP Angel Luis Lott Future Appointments Date Time Provider Department Center 12/23/2019 1:30 PM Alfreda Salas APRN [facility] [id number] 12/26/2019 9:40 AM Merlin Sanchez MD [facility] CARD 4A [facility] 12/30/2019 3:40 PM Gretchen Yoon MD [address] Future Appointments and Orders Future Appointments and Orders Future Appointments Provider Department Dept Phone 12/23/2019 1:30 PM Alfreda Salas APRN Neurosurgery at [facility] Arrive at: Home [phone] Please do not come in for this visit. Your provider will call you at the number you provided. 12/26/2019 9:40 AM Merlin Sanchez MD Cardiology at [facility] Arrive at: Home [phone] Please do not come in for this visit. Your provider will call you at the number you provided. 12/30/2019 3:40 PM Gretchen Yoon MD Cardiology at [facility] Arrive at: Home [phone] Please do not come in for this visit. Your provider will call you at the number you provided. Future Orders Complete By Expires Referral to Cardiac Rehab [[id number] Custom] As directed Process Instructions: If no progress note charted, please enter Clinical details in comments. Scheduling Instructions: Questions: My question or request is: STEMI. Cardiac rehab at [facility] Referral to [facility] [REF43 Custom] As directed Process Instructions: If no progress note charted, please enter Clinical details in comments. Scheduling Instructions: Questions: My question or request is: patient with inferior stemi with history of statin allergy (rash) - please evaluate for psck9 inhibitor. Referral to Home Health - at DISCHARGE [UNH4214 CPT(R)] As directed Process Instructions: Scheduling Instructions: Comments: DOCUMENTATION FOR VNA SERVICES PATIENT'S LOCATION: [address] [address] (home) Catia Designer's Name: Self In discussion with the attending physician, it is certified that this patient is under his/her care and that MD, or an RESAW FEEDER, DEPARTMENT CLINICIAN, or PA who is working directly with him/her, had a hzck-nb-syju encounter that meets the physician zwsm-ai-ygpy encounter requirements with this patient on 12/07/2019. [...] for managing ADLs. HOME HEALTH CARE AGENCY: [facility], PHONE: [phone] FAX: [phone] Start of care: 24-48 hours after hospital [...] Lam MD [address] / [place] [id number] All A agencies which cover the area of patient's residence have been reviewed, either verbally or in writing, and patient/family have chosen the home health care agency noted. Questions: Agency name and contact information: [facility] Patient location post discharge: Home What services are requested: Registered Nurse Physical Therapy Occupational Therapy Start date: Responsible MD post discharge contact info: PCP Your PCP: France Lam MD [phone] For questions regarding this document or issues relating to this hospitalization on the Cardiology Service, please contact your inpatient physician through the [facility] Resident Services Supervisor . Issues after hours and on weekends will be handled by the Chemical Detection Expert on-call. Patient Instructions: Neurology Your Diagnosis: Left [...] clinic at [facility]. See below for the appointment time. [...] 1:30 PM Alfreda Salas APRN Neurosurgery at [facility] Arrive at: Home [phone] Please do not come in for this visit. Your provider will call you at the number you provided. 12/26/2019 9:40 AM Merlin Sanchez MD Cardiology at [facility] Arrive at: Home [phone] Please do not come in for this visit. Your provider will call you at the number you provided. 12/30/2019 3:40 PM Gretchen Yoon MD Cardiology at [facility] Arrive at: Home [phone] Please do not come in for this visit. Your provider will call you at the number you provided. Future Orders Complete By Expires Referral to Cardiac Rehab [[id number] Custom] As directed Process Instructions: If no progress note charted, please enter Clinical details in comments. Scheduling Instructions: Questions: My question or request is: STEMI. Cardiac rehab at [facility] Referral to [facility] [REF43 Custom] As directed Process Instructions: If no progress note charted, please enter Clinical details in comments. Scheduling Instructions: Questions: My question or request is: patient with inferior stemi with history of statin allergy (rash) - please evaluate for psck9 inhibitor. Referral to Home Health - at DISCHARGE [SCB2008 CPT(R)] As directed Process Instructions: Scheduling Instructions: Comments: DOCUMENTATION FOR VNA SERVICES PATIENT'S LOCATION: [address] [address] (home) Catia Designer's Name: Self In discussion with the attending physician, it is certified that this patient is under his/her care and that MD, or an RESAW FEEDER, DEPARTMENT CLINICIAN, or PA who is working directly with him/her, had a sbhm-ap-warh encounter that meets the physician ovno-dc-krvt encounter requirements with this patient on 12/07/2019. [...] for managing ADLs. HOME HEALTH CARE AGENCY: [facility], PHONE: [phone] FAX: [phone] Start of care: 24-48 hours after hospital [...] MD [address] / [place] [address] All A agencies which cover the area of patient's residence have been reviewed, either verbally or in writing, and patient/family have chosen the home health care agency noted. Questions: Agency name and contact information: [facility] Patient location post discharge: Home What [...] Stevens MD PGY-3, Internal Medicine Cardiology S2, #[id number] Associated attestation - Paris Dodd MD - 12/09/2019 4:44 PM EDT Cardiology Attending Discharge Addendum I was the assigned attending activity therapy teacher for this clinical encounter. For the purposes [...] complications include novel onset, paroxysmal atrial fibrillation [[id number]: 5] & L-sided diplopia with potential hemineglect [...] My contact information: Paris Matt MD MPH [address] [address] (office); Pager #[phone] Email: [email or web address] documented in this encounter Discharge Instructions Patient InstructionsFiRiki de jesus MD - 12/02/2019 9:56 AM EDT Images from the original note were not included. Why you were hospitalized: You had a heart attack. You received clot-busting medications at another hospital and then at [facility] you had a [...] FOR ONE MONTH AND THEN STOP. Your activity therapy teacher may tell you to start this medication again after one year. Clopidogrel (Plavix) 75 mg daily - This medication will help prevent clots from forming in your blood, which will help protect the stent that was placed in your heart vessel. TAKE THIS FOR ONE YEAR ANDTHEN DISCUSS WITH YOUR CERTIFIED DENTAL ASSISTANT WHETHER TO STOP. Amiodarone 400mg twice [...] follow up: Your primary care provider and activity therapy teacher will manage your blood thinner (apixaban). You do not need lab monitoring of this medication. Diet: Please consume a healthy diet low in cholesterol Follow up Appointments: 12/10/2019 at 3:10PM with PCP Angel Luis Lott Future Appointments Date Time Provider Department Center 12/23/2019 1:30 PM Alfreda Salas APRN [facility] [id number] [facility] 12/26/2019 9:40 AM Merlin Sanchez MD [facility] CARD 4A [facility] 12/30/2019 3:40 PM Gretchen Yoon MD [facility] CARD 4A [facility] Future Appointments and Orders Future Appointments and Orders Future Appointments Provider Department Dept Phone 12/23/2019 1:30 PM Alfreda Salas APRN Neurosurgery at [facility] Arrive at: Home [phone] Please do not come in for this visit. Your provider will call you at the number you provided. 12/26/2019 9:40 AM Merlin Sanchez MD Cardiology at [facility] Arrive at: Home [phone] Please do not come in for this visit. Your provider will call you at the number you provided. 12/30/2019 3:40 PM Gretchen Yoon MD Cardiology at [facility] Arrive at: Home [phone] Please do not come in for this visit. Your provider will call you at the number you provided. Future Orders Complete By Expires Referral to Cardiac Rehab [[id number] Custom] As directed Process Instructions: If no progress note charted, please enter Clinical details in comments. Scheduling Instructions: Questions: My question or request is: STEMI. Cardiac rehab at [facility] Referral to [facility] [REF43 Custom] As directed Process Instructions: If no progress note charted, please enter Clinical details in comments. Scheduling Instructions: Questions: My question or request is: patient with inferior stemi with history of statin allergy (rash) - please evaluate for psck9 inhibitor. Referral to Home Health - at DISCHARGE [[id number] CPT(R)] As directed Process Instructions: Scheduling Instructions: Comments: DOCUMENTATION FOR VNA SERVICES PATIENT'S LOCATION: [address] [address] (home) Catia Designer's Name: Self In discussion with the attending physician, it is certified that this patient is under his/her care and that MD, or an RESAW FEEDER, DEPARTMENT CLINICIAN, or PA who is working directly with him/her, had a tmro-ex-mqok encounter that meets the physician kxpb-nn-zuli encounter requirements with this patient on 12/07/2019. [...] for managing ADLs. HOME HEALTH CARE AGENCY: [facility], PHONE: [phone] FAX: [phone] Start of care: 24-48 hours after hospital [...] MD [address] / [place] [address] All A agencies which cover the area of patient's residence have been reviewed, either verbally or in writing, and patient/family have chosen the home health care agency noted. Questions: Agency name and contact information: [facility] Patient location post discharge: Home What services are requested: Registered Nurse Physical Therapy Occupational Therapy Start date: Responsible MD post discharge contact info: PCP Your PCP: France Lam MD [phone] For questions regarding this document or issues relating to this hospitalization on the Cardiology Service, please contact your inpatient physician through the [facility] Resident Services Supervisor . Issues after hours and on weekends will be handled by the Chemical Detection Expert on-call. Patient Instructions: Neurology Your Diagnosis: Left [...] clinic at [facility]. See below for the appointment time. [...] consulted in the interim. Vikash Rodriguez Pager: [phone] Paris Dodd MD - 12/08/2019 8:57 AM [...] complications include novel onset, paroxysmal atrial fibrillation [[id number]: 5] & L-sided diplopia with potential hemineglect [...] IV drip) as well as repleting magnesium. Drarell Glasgow MD Vikash Rodriguez - 12/07/2019 12:29 PM EDT Nutrition Services Note - Low Nutrition Acuity Angel Luis Sailnas is a 74 y.o. male Reason for [...] consulted in the interim. Vikash Rodriguez Pager: [phone] Paris Dodd MD - 12/07/2019 9:55 AM [...] complications include novel onset, paroxysmal atrial fibrillation [NKK5QP2CIPT: 5] & L-sided diplopia with potential hemineglect [...] complications include novel onset, paroxysmal atrial fibrillation [BPG3TZ9YLFW: 5] & L-sided diplopia with potential hemineglect [...] complications include novel onset, paroxysmal atrial fibrillation [BXV6WW7AFPZ: 5] & L-sided diplopia with potential hemineglect [...] today; additional complications include paroxysmal atrial fibrillation [PFO1QX6OKZK: 4] c/b possible cardioembolic stroke, ICH from [...] length from neck/greatest diameter to back wall: MALTESE 91, CAU 13: 19 mm CORTES 1, [...] a non-culprit artery. S/P DESx3 in the bkrbmpuq-cd-aiutyy RCA. Aspiration thrombectomy performed, and integrellin bolus [...] complications include novel onset, paroxysmal atrial fibrillation [BPE8MH4GIMP: 5] & L-sided diplopia with potential hemineglect [...] R occipital cardioembolic stroke #Paroxysmal Afib with IK4TAKXX7N score of 5 #New segmental bilateral PEs [...] Glasgow MD PGY1, Internal Medicine Cardiology S2, #1759 Associated attestation - Paris Dodd MD - 12/05/2019 2:59 PM EDT I was the assigned attending activity therapy teacher for this clinical encounter. For the purposes [...] 12/04/2019 10:36 AM EDT Office of Care Management(OCM)/Mechanical Planner(CM)/Discharge Planning Service: Cardiology S2 team CM Bernie Alexander,RN,BSN,MA,ACM pgr [phone] Reviewed record and in Cardiology Rounds with MD team,CMs, applications processor, MEDICAL APPOINTMENT CLERK. Pt is anticipated ready for d/c [...] AD to his PCP and to any [facility] appt for each [...] complications include novel onset, paroxysmal atrial fibrillation [ETH9VB3HMFJ: 4] & L-sided diplopia with potential hemineglect [...] a non-culprit artery. S/P DESx3 in the xtlasxbd-af-wvgunf RCA. Aspiration thrombectomy performed, and integrellin bolus [...] complications include novel onset, paroxysmal atrial fibrillation [NXH7RK9FQDC: 5] & L-sided diplopia with potential hemineglect [...] R occipital cardioembolic stroke #Paroxysmal Afib with CY5LKGIH2R score of 5 - No anticoagulation for [...] Glasgow MD PGY1, Internal Medicine Cardiology S2, #7791 I have seen the patient and reviewed [...] in my clinic. Gretchen Yoon MD Pager [phone] Derian Pascual RN - 12/03/2019 9:29 AM [...] Discharge: None Electronically signed: Derian Pascual RN, Mechanical Planner Pgr: [phone] 12/03/2019 9:29 AM Gretchen Yoon [...] complications include novel onset, paroxysmal atrial fibrillation [WPF4LA3XSUQ: 4] & L-sided diplopia with potential hemineglect [...] a non-culprit artery. S/P DESx3 in the kpdkfoca-aw-nhodxt RCA. Aspiration thrombectomy performed, and integrellin bolus [...] complications include novel onset, paroxysmal atrial fibrillation [QMJ4AW4EXKX: 5] & L-sided diplopia with potential hemineglect [...] would like to see Dr. Mejia in [facility] and follow up with his PCP. Patient voiced strong will to quit smoking now, understood that we have resources available for help. Plan [P]: --Neurologic-- # Concern for Left-Sided Diplopia, r/o Hemineglect # Concern for CVA, last-known well 11/29/19 - MRI showed possible cardioembolic stroke #Afib with LY7NVUHQ8D score of 5 - Stroke Team Consulted; [...] Anticoagulation/Arrhythmia # Novel Onset, Paroxsymal Atrial Fibrillation [RWM4RK6JBTJ: 5] - Hold off anticoagulation for at [...] w straight cath prn # Nutrition - [facility] Diet, 2g Na. [...] Glasgow MD PGY1, Internal Medicine Cardiology S2, #7063 I have seen the patient and reviewed the resident's above history and I agree with the details as written. The assessment and plan were formulated in discussion with me and I agree with them as documented. Gretchen Yoon MD Pager [phone] Raul Hein RN - 12/03/2019 5:55 AM [...] Negative mcL Appearance UA Clear Clear Spec [place] UA 1.026 1.006 - 1.030 Color UA [...] PGY3 Neurology Resident 12/01/2019 Vascular Neurology Pager [phone] Neurology Attending Attestation I evaluated the patient [...] documented. Deepthi Roman MD Vascular Neurology Standard [facility] Swallow Screen: This [...] diet as medical provider deems appropriate. Consider AUTOMOBILE SALESMAN consult for full evaluation and diet recommendations. [...] complications include novel onset, paroxysmal atrial fibrillation [ONS5ZA0RWCG: 4] & L-sided diplopia with potential hemineglect [...] a non-culprit artery. S/P DESx3 in the ztnrveqz-pg-aacocf RCA. Aspiration thrombectomy performed, and integrellin bolus [...] complications include novel onset, paroxysmal atrial fibrillation [CYE8ZJ0SIKM: 5] & L-sided diplopia with potential hemineglect [...] Anticoagulation/Arrhythmia # Novel Onset, Paroxsymal Atrial Fibrillation [YJO3YY4AWMX: 5] - Hold off anticoagulation - pending [...] tamsulosin d/t low BP. # Nutrition - [facility] Diet -- Hematology/Oncology-- [...] Glasgow MD PGY1, Internal Medicine Cardiology S2, #9462 I have seen the patient and reviewed [...] the ICU team. Gretchen Yoon MD Pager [phone] Natalia Claros APRN - 12/02/2019 8:38 AM [...] - We are signing off. Please page [phone] with any questions or concerns. For questions please call [facility] pager [phone] Natalia Claros APRN 12/02/2019 8:38 AM Clinical Documentation Improvement: Active Hospital Problems Diagnosis ??? Acute ST elevation myocardial infarction (STEMI) of inferior wall ??? Intracranial hemorrhage ??? Hyperlipidemia ??? Tobacco abuse ??? Claudication from peripheral vascular disease, left Resolved Hospital Problems No resolved problems to display. Tello Hsu, WIRE STITCHER - 12/02/2019 2:06 AM EDT 12/01/192009 Oxygen [...] number below. Electronically signed by: Latoya Ivey [facility] ([phone]), at 11/30/2019 8:32 PM ASSESSMENT: Patient states he is breathing easier than last night. Still increased WOB PLAN: Wean FiO2 as tolerated. Patient to CT Scan in afternoon. Upon arrival back in [facility] placed on low flow NC at 4 [...] complications include novel onset, paroxysmal atrial fibrillation [VUP3EX5AQLF: 4] & L-sided diplopia with potential hemineglect for which CVA evaluationto be pursued. Active Problems/Subjective: - 11/28: admitted for inferior STEMI, RV failure requiring pressor - got lytics, aspirin and plavix load, heparin gtt, and eptifibatide. 3 MACARIO stents to RCA. Adamant cath - low wedge & CVP so [...] a non-culprit artery. S/P DESx3 in the qfctijbh-ze-hveiby RCA. Aspiration thrombectomy performed, and integrellin bolus [...] complications include novel onset, paroxysmal atrial fibrillation [[id number]: 4] & L-sided diplopia with potential hemineglect [...] Anticoagulation/Arrhythmia # Novel Onset, Paroxsymal Atrial Fibrillation [[id number]: 4] - Obtain: TTE - Pending CVA [...] tamsulosin d/t low BP. # Nutrition - [facility] Diet -- Hematology/Oncology-- [...] MD, PGY1 PGY3, Internal Medicine Cardiology S2, #3035 I have seen the patient and reviewed [...] down the line. Gretchen Yoon MD Pager [phone] ?? Gretchen Yoon MD Pager [phone] Natalia Claros APRN - 12/01/2019 1:33 AM [...] per primary team For questions please call [facility] pager [phone] Natalia Claros APRN 12/01/2019 7:42 AM Clinical Documentation Improvement: Active Hospital Problems Diagnosis ??? Acute ST elevation myocardial infarction (STEMI) of inferior wall ??? Intracranial hemorrhage ??? Hyperlipidemia ??? Tobacco abuse ??? Claudication from peripheral vascular disease, left Resolved Hospital Problems No resolved problems to display. Tello Hsu, WIRE STITCHER - 11/30/2019 8:44 PM EDT Respiratory Therapy [...] number below. Electronically signed by: Latoya Ivey [facility] ([phone]), at 11/30/2019 8:32 PM ASSESSMENT: Patient had [...] EDT Narrative:Visited in response to request for Licensed [facility] Nurse [facility] Nurse services. Pt was awake, alert, oriented and in bed. Assessment:Patient coping positively with stresses of illness/hospitalization at this time. Pt says that he is hoping to get better and pt is living with and has children and grandchildren. Pt haspurpose of life and has reason to get getter and to be with family. Outcome: Provided emotional and spiritual support and encouraging presence. [facility] Nurse services accepted.Conversation to build trusting relationship.Provided [...] complications include novel onset, paroxysmal atrial fibrillation [[id number]: 4] & L-sided diplopia with potential hemineglect for which CVA evaluationto be pursued. Active Problems/Subjective: - Overnight, CVP < 12 for which a total of 1 L IVF provided - Today AM, patient complains of subjectively reported, left-sided hemineglect with floaters and diplopia [see: exam]. - Otherwise, c/o neck pain 2/2 R IJ Adamant & L radial A line. Otherwise, denies [...] a non-culprit artery. S/P DESx3 in the kpyamvag-dc-qzucez RCA. Aspiration thrombectomy performed, and integrellin bolus [...] complications include novel onset, paroxysmal atrial fibrillation [[id number]: 4] & L-sided diplopia with potential hemineglect [...] Anticoagulation/Arrhythmia # Novel Onset, Paroxsymal Atrial Fibrillation [[id number]: 4] - Obtain: TTE to confirm rhythm [...] tamsulosin d/t low BP. # Nutrition - [facility] Diet -- Hematology/Oncology-- [...] MD, PGY3 PGY3, Internal Medicine Cardiology S2, #[id number] I have seen the patient and reviewed [...] down the line. Gretchen Yoon MD Pager [phone] Paola Capps RN - 11/30/2019 6:57 AM EDT PT still requiring 4 of levo, several attempts to titrate down (maps in 70;s) But maps would drop toless than 65. Pt very restless in bed Raising and lowering head denies pain . Integrillin stopped [id number] when bottle complete , urine tea colored [...] PCP: France Lam MD PCP phone #: [phone] Supervisor Bridges And Buildings: None ID/Chief Complaint: Chest pain History of Present Illness: 74 y.o male with no significant PMH, was in usual state of health until yesterday when he woke up at 4am this morning with severe crushing substernal chest pain 04/10. He took two full strength aspirin and came to [facility] ED. At there was [...] and Compazine. He was transferred directly to [facility] via [facility] for further management. Patient had an emergent PCI with 3 MACARIO stents placed to his RCA, with mild disease of LCX (report pending) at [facility]. He was found to be persistently hypotensive requiring Levo up to 10mcg/min. He was transferred to [facility] after the cath procedure. Bedside RHC showed CI 2.12, PAWP 11, PAP 38/15 indicating hypovolemic state. He received 1L bolus of NS with improvement of his blood pressure to 124/61. History of PAD, HLD - had side reactions to statins - so taking niacin and red rye grain. Chronic active smoker with more than 65 pack years. Family history of [place] in father and two uncles. He's takingbaby [...] ??? Penicillins Pt doesn't remember reaction ??? Guhbpkl-Pkw-Xui Reductase Inhibitors Stiff neck, upset stomach, back pain Family History: Mother: Father: [place] 2 Uncles with MIs Social History: Tobacco: Current active smoker 1 ppd. 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 Vitals: Last value Range last [...] in the last 7068 hours. Invalid input(s): [id number] Heme: No results for input(s): LDH, HAPTOGLOBIN, [...] OSH prior to transfer and PCI at [facility]. Massive inferior STEMI with troponin level 20, currently in CVCC due to pressor requirement. BedsideRHC demonstrated evidence of elevated right sided heart failure, but his wedge was wnl. He received 1L bolus with improvement of his blood pressure and reduction of his pressor requirement. PLAN: Admit to Cardiology, S2 Team Pager # [phone] #Inferior STEMI, LEYLA 149 - Resolving EKG [...] inferior STEMI s/p lytic therapy. Transferred to [facility] and underwent successful PCI of the RCA with MACARIO x3. Gretchen Yoon MD Pager [phone] documented in this encounter Procedure Notes Juventino [...] to the planned procedure. Hand Hygiene: The artist's representative did perform hand hygiene prior to arterial [...] a suspected line-associated infection. Location of Procedure: [facility] Risks and Benefits: The risks and benefits [...] to the planned procedure. Hand Hygiene: The artist's representative did perform hand hygiene prior to line [...] side:right An Introducer (PSI Kit) was used. Lapel. Insertion Side: right. Insertion Site: internal jugular. Catheter Details: Number of Lumens: 1 Catheter Type: heparin-coated The line was placed over a guidewire. Confirmation of Venous Placement: Venous placement was confirmed by transducing the pressure. Introducer Insertion Attempts: 1 Comments: Floating the Adamant-Mo Catheter Attempts: 1 Comments: Sterile Dressing: Biopatch [...] better pt back in SR. Please page [phone] for any more cares or concerns Plan [...] complications include novel onset, paroxysmal atrial fibrillation [[id number]: 5]& L-sided diplopia with potential hemineglect for [...] Total Evaluation Minutes, Occupational Therapy: 10 Pager: [phone] FRANCINE Nuñez Occupational Therapy Rehabilitation Department Plan [...] complications include novel onset, paroxysmal atrial fibrillation [[id number]: 5] & L-sided diplopia with potential hemineglect [...] hand rails). Baseline Mobility: Independent. Drives. 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 Time IN / OUT: 3036-2844 Total Evaluation Minutes, Physical Therapy: 15(gtx1) Barbara Baldwin, PT Pager: [phone] Physical Therapy Inpatient Rehabilitation Department Plan of [...] -- active listening utilized Consult Note - Rmoain Tran RN - 12/03/2019 3:35 PM EDT TOBACCO DEPENDENCE TREATMENT NOTE DATE: 12/03/2019 NAME: Angel Luis Salinas : 1945 Referral received. Chart reviewed. I met with Angel Luis this afternoon to discuss his tobacco use and assess his readiness to quit. He declined tobacco treatment services reporting that he receives all he needs through the [facility]. Consult refused. Romain Tran, MSN, RN-, [facility] Tobacco Still Tender [facility] Pager #[phone] Plan of Care - Romain Oglesby OT [...] complications include novel onset, paroxysmal atrial fibrillation [YES5TF5TMRM: 5] & L-sided diplopia with potential hemineglect [...] and measurable assessment of functional outcome. Pager: [phone] ROMAIN OGLESBY OT 12/03/2019 Occupational Therapy Rehabilitation [...] outpatient cardiac rehabilitation program at [facility] was discussed. Patient agrees to a referral to this program. His has been a cardiac rehab patient at [facility] and he is familiar with [...] complications include novel onset, paroxysmal atrial fibrillation [[id number]: 5] & L-sided diplopia with potential hemineglect [...] hand rails). Baseline Mobility: Independent. Drives. 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 Time IN / OUT: 3018-5889 Total Evaluation Minutes, Physical Therapy: 25(eval, gtx1) Barbara Baldwin, PT Pager: [phone] Physical Therapy Inpatient Rehabilitation Department Consult Note [...] Please contact JOHANNA NOBLES RN on pager [phone] or the wound care team at [phone] or pager [phone] skin and wound care concerns or questions. [...] making law. Any patient receiving carspousee at [facility] must abide by [...] (i) The agent with financial power of freight elevator erector or a conservator appointed in accordance with [...] Insurance: N/A Prescription Coverage: Yes Preferred Pharmacy: [place], [place] Other: No Primary Care Provider: France Lam MD [phone] Patient/Caregiver Goals of Treatment: Return home Potential Needs for Transition of Care: Rehab/SNF: Based on discussions with the multi-disciplinary healthcare team, the patient would benefit from SNF level of care at discharge. ?? I have met with the patient to discuss discharge planning needs. I have provided the [facility], Officeof Care Management letter from the Light Bulb Replacer pertaining to rehab referrals. I have also provided a letter describing our affiliations within the [facility] and educated them about [...] to: ?? 1. [facility] [address] [place] [address] ?? [address]. [address] , [place] [address] Note routed to Machine Cell Tuber who will communicate referrals to facilities and provide any required information. Home Health: If therapies recommend home w/ VNA, the patient has been provided a list of Home Health Agencies/DME vendors which serve their preferred geographic area. A letter describing our affiliations was reviewed with them and they were educated about their right to choose where referrals are placed. Patient requests referral to [facility]. PHONE: [phone] FAX: [phone] Referral routed to the Machine [employer] Tuber for matching with agency/vendor and to provide [...] Insured w/ Medicare. Gets medications filled at [facility] [place], [place]. Son to transport at discharge Plan: Discharge dispo depending on patient's physical recovery; SNF vs home w/ VNA. A member of the Care Management team will continue to monitor progress, follow for continuity of care and assist with transition of care planning. Derian Pascual RN Pager: [phone] Plan of Care - Estefani Encarnacion RN [...] ??? Penicillins Pt doesn't remember reaction ??? Xpuecoh-Ggh-Dcv Reductase Inhibitors Stiff neck, upset stomach, back [...] noncontrast head CT and CT of the [place] at 1600 hrs. We will [...] vision concerning for stroke. Patient presented to [facility] in transfer for [...] ??? Penicillins Pt doesn't remember reaction ??? Zuysurk-Lwi-Cvi Reductase Inhibitors Stiff neck, upset stomach, back [...] file Gets together: Not on file Attends christianity service: Not on file Active member of [...] L Elbow flexion 5/5 R, 5/5 L Ice House Supervisor LE: 5/5 R, 5/5 L Hip [...] PGY3 Neurology Resident 11/30/2019 Vascular Neurology Pager [phone] Standard [facility] Swallow Screen: This [...] diet as medical provider deems appropriate. Consider AUTOMOBILE SALESMAN consult for full evaluation and diet recommendations. [...] Afib admitted s/p thrombolysis and Cath-Stent to [facility] who developed R sided [...] of Neurology [facility] Brief Op Note - Gretchen Yoon MD - 11/29/2019 8:38 PM EDT Brief Operative Note Patient Name: Angel Luis Sailnas : [id number] MR#: [id number] Case Date: 11/29/2019 Surgeon: Surgeon(s) and Role: * Gretchen Yoon MD - Primary * Aidan Ward MD - Fellow Preoperative diagnosis: Inferior STEMI Postoperative diagnosis: Inferior STEMI Procedure(s) (LRB): CARDIAC CATHETERIZATION (N/A) Findings: Discrete 90% stenosis in the prox-to-mid RCA. Severe diffuse disease in the distal vessel. Discrete LCX stenosis in a non-culprit artery. S/P DESx3 in the lnjximtt-sq-qajypb RCA. Aspiration thrombectomy performed, and integrellin bolus x2+ infusion. Nicardipine given during case due to intermittent sluggish flow. Complications: None documented in this encounter Plan of Treatment Upcoming Encounters Date Type Specialty Care Team Description 06/30/2022 Office Visit Endocrinology Alan Terrell MD [facility] ENDOCRINOLOGY [place], [place] [address] (Wo rk) Scheduled Referrals Name [...] are i n the results section. CT [place] W STAT 11/30/2019 4:36 Res [...] athologist Signature Potassium 3.9 3.5 - 5.0 [facility] DOV mmol/L [facility] Comment: Please note: ??Patients [...] Organization Address City/State/[place] [address] (ABNORMAL) Hemogram (12/08/2019 12:39 PM EDT) Analysis Performed At Patho logist Time Signature WBC 9.9 (H) 4.0 - 9.5 [place] DOV x10(3)/[facility] LABORATORY RBC 4.51 (L) 4.58 - [place] DOV 5.54 [facility] x10(6)/[facility] LABORATORY Hemoglobin 13.0 (L) 13.7 - [place] DOV 16.5 gm/dL [facility] Hematocrit 40.5 40.5 - EngagioDOV 48.5 % [facility] MCV 89.8 82.9 - [place] 93.1 [facility] LABORATORY MCH 28.8 27.5 - [place] DOV 32.1 pg [facility] MCHC 32.1 32.0 - [place] D[place] 35.7 gm/dL [facility] Platelets 214 145 - 357 [place] DOV x10(3)/[facility] LABORATORY RDWSD 49.2 (H) 36.0 - [place] DOV 45.0 [facility] LABORATORY RDWCV 15.1 (H) 11.4 - [facility]OV 13.8 % [facility]OR[facility]ORY MPV 12.1 7.6 - 12.9 [place] DOV [facility] LABORATORY nRBC % Auto 0.0 % [facility]OR[facility] nRBC Abs Auto 0.000 0.000 - [place] DOV 0.000 [facility] x10(3)/[facility] LABORATORY Specimen Anatomical Collection Method Collection Time Receive d Time (Source) Location / / Volume Laterality Blood specimen 12/08/2019 12:39 0 (specimen) PM EDT 12:47 PM EDT Resulting Agency Comment Spec In Lab Gretchen Yoon MD HEMATOLOGY ORDERABLES Performing Organization Address City/State/ZIP Code Phon e Number [address] Hepatic Function Panel (12/08/2019 6:28 AM EDT) athologist Signature Total Protein 6.6 6.1 - 8.0 [facility] gm/dL [facility] Albumin 3.2 3.2 - 5.2 [facility] AST 18 0 - 39 [facility] unit/L [facility] ALT 13 0 - 55 [facility] unit/L [facility] Alk Phos 64 40 - 130 [facility] unit/L [facility] Total 0.4 0.2 - 1.3 [facility] Bilirubin mg/dL [facility] Bili, Direct 0.1 0.0 - 0.3 [facility]dL [facility] Specimen Anatomical Collection Method Collection Time Receive d Time (Source) Location / / Volume Laterality Blood specimen Venous Draw / 12/08/2019 6:28 AM 2019 6:36 (specimen) Unknown EDT AM EDT Resulting Agency Comment Spec In Lab Riki Stevens MD CHEMISTRY ORDERABLES Performing Organization Address City/State/ZIP Code Phon e Number [address] (ABNORMAL) TSH (12/08/2019 6:28 AM EDT) P athologist Signature TSH 5.27 (H) 0.27 - 4.20 [facility] DOV mcIU/mL [facility] Specimen Anatomical Collection Method Collection Time Receive d Time (Source) Location / / Volume Laterality Blood specimen Venous Draw / 12/08/2019 6:28 AM 2019 6:36 (specimen) Unknown EDT AM EDT Resulting Agency Comment Spec In Lab Darrell Glasgow MD CHEMISTRY ORDERABLES Performing Organization Address City/State/ZIP Code Phon e Number [address] Potassium (12/08/2019 6:28 AM EDT) P athologist Signature Potassium 4.2 3.5 - 5.0 [facility] mmol/L [facility] Comment: Please note: ??Patients [...] Lagos MD CHEMISTRY ORDERABLES Performing Organization Address City/[facility]/[place] [address] (ABNORMAL) Differential, Automated (12/08/2019 12:43 AM EDT) Patholo gist Method Time Signature Neutrophils % 60.7 % [facility] Neutr Abs (ANC) 6.81 (H) 1.70 - [facility] 6.10 [facility] x10(3)/[facility] LABORATORY Lymphocytes % 23.4 % [facility] Lymphocytes Abs 2.6 0.9 - 3.2 [facility] x10(3)/[facility] LABORATORY Monocytes % 10.0 % [facility] Monocyte Abs 1.1 (H) 0.3 - 0.9 [facility] x10(3)/[facility] LABORATORY Eosinophils % 3.7 % [facility] Eosinophils Abs 0.4 0.0 - 0.4 [facility] x10(3)/[facility] LABORATORY Basophils % 1.2 % [facility] Basophils Abs 0.1 0.0 - 0.1 [facility] DOV x10(3)/[facility] LABORATORY Immature Gran % 1.00 % [facility] Comment: Immature granulocytes(IG's)percentage an d absolute count will include metamyelocytes, myelocytes, and promyelo cytes. Blood smears from CBCs yielding IG's will be scanned manually for ana nagy. If this scan disagrees with the automated IG or if promyelocytes are not ed, a manual differential will be performed. Pita Gran Abs 0.11 (H) 0.00 - 0.04 x10(3)/[facility] LABORATORY Specimen Anatomical Collection Method Collection Time Receive d Time (Source) Location / / Volume Laterality Blood specimen 12/08/2019 12:43 0 (specimen) AM EDT 12:52 AM EDT Resulting Agency Comment Spec In Lab Riki Stevens MD HEMATOLOGY ORDERABLES Performing Organization Address City/State/[place] [address] (ABNORMAL) Hemogram (12/08/2019 12:43 AM EDT) Analysis Performed At Patho logist Time Signature WBC 11.2 (H) 4.0 - 9.5 [facility] x10(3)/[facility] LABORATORY RBC 4.46 (L) 4.58 - [facility] DOV 5.54 [facility] x10(6)/[facility] LABORATORY Hemoglobin 13.1 (L) 13.7 - [facility] 16.5 gm/dL [facility] Hematocrit 40.5 40.5 - [place] DOV 48.5 % [facility] MCV 90.8 82.9 - [facility] 93.1 [facility] LABORATORY MCH 29.4 27.5 - [place] DOV 32.1 pg [facility] LABORATORY MCHC 32.3 32.0 - [facility] DOV 35.7 gm/dL [facility] LABORATORY Platelets 215 145 - 357 [facility] x10(3)/[facility] RDWSD 49.8 (H) 36.0 - [place] DOV 45.0 [facility] LABORATORY RDWCV 15.2 (H) 11.4 - [place] MONAE 13.8 % [facility]ORAT[facility] MPV 12.3 7.6 - 12.9 [place] MONAE fL [facility]ORATORY nRBC % Auto 0.0 % [facility] nRBC Abs Auto 0.000 0.000 - [place] MONAE 0.000 [facility] x10(3)/[facility] LABORATORY Specimen Anatomical Collection Method Collection Time Receive d Time (Source) Location / / Volume Laterality Blood specimen 12/08/2019 12:43 0 (specimen) AM EDT 12:52 AM EDT Resulting Agency Comment Spec In Lab Riki Stevens MD HEMATOLOGY ORDERABLES Performing Organization Address City/State/ZIP Code Phon e Number [address] Magnesium (12/08/2019 12:43 AM EDT) P athologist Signature Magnesium 1.01 0.69 - 1.07 [facility] mmol/L [facility] LABORATORY Specimen Anatomical Collection Method Collection Time Receive d Time (Source) Location / / Volume Laterality Blood specimen 12/08/2019 12:43 0 (specimen) AM EDT 12:52 AM EDT Resulting Agency Comment Spec In Lab Gretchen Yoon MD CHEMISTRY ORDERABLES Performing Organization Address City/State/ZIP Code Phon e Number [address] (ABNORMAL) BMP w/fasting Glucose (12/08/2019 12:43 AM EDT) P athologist Signature Glucose 106 (H) 65 - 99 [facility] Fasting mg/dL [facility] Comment: ?Fasting* Glucose Interpretive [...] of Diabetes Mellitus, Position Statement from the [place] [employer]. ??Diabete s Care, Volume 33, Supplement 1, Jul 2009 BUN 14 10 - 20 mg/dL [facility] LABORATORY Creatinine 1.16 0.80 - 1.50 mg/dL [facility] LABORATORY Sodium 134 (L) 135 - 145 mmol/L [facility]OR[facility]ORY Potassium 4.0 3.5 - 5.0 mmol/L [facility] Comment: Please note: ??Patients with WBC >100,00 0 may have falsely elevated Potassium levels. ??For accurate Potassium quantif ication in these patients send serum separator tube (gold top) for subsequent determinations. ??Contact the Clinical Chemistry Laboratory if there are any qu estions. Chloride 99 98 - 107 mmol/L [facility] CO2 19 (L) 22 - 31 mmol/L [facility] Anion Gap 16 (H) 5 - 15 mmol/L [facility] Calcium 8.9 8.5 - 10.5 mg/dL [facility] Estimated GFR 62 >=60 mL/min/1.73 m?? [facility] Comment: The eGFR was calculated using the CKD-EP I equation. As with all creatinine based estimates of kidney function, eGFR values calculated with the CKD-EPI equation are not accurate in patients wi th acute kidney failure, extremes of body mass or the acutely ill. [email or web address] eGFR 72 >=60 mL/min/1.73 m?? [facility] Comment: The eGFR was calculated using the CKD-EP I equation. As with all creatinine based estimates of kidney function, eGFR values calculated with the CKD-EPI equation are not accurate in patients wi th acute kidney failure, extremes of body mass or the acutely ill. [email or web address] Specimen Anatomical Collection Method Collection Time Receive d Time (Source) Location / / Volume Laterality Blood specimen 12/08/2019 12:43 0 (specimen) AM EDT 12:52 AM EDT Resulting Agency Comment Spec In Lab Gretchen Yoon MD CHEMISTRY ORDERABLES Performing Organization Address [facility] [place] [address] Heparin (unfractionated) Level (12/08/2019 12:43 AM EDT) athologist Signature Heparin UFH 0.60 IU/mL [facility] LABORATORY Comment: Guidelines for therapeutic [...] HEMATOLOGY ORDERABLES Performing Organization Address [facility]/[place] [address] [facility] [address] Potassium (12/07/2019 8:39 PM EDT) athologist Signature Potassium 4.1 3.5 - 5.0 [facility] mmol/L [facility] Comment: Please note: ??Patients [...] Lagos MD CHEMISTRY ORDERABLES Performing Organization Address City/[facility]/[place] [address] Potassium (12/07/2019 4:02 PM EDT) P athologist Signature Potassium 4.0 3.5 - 5.0 [facility] mmol/L [facility] Comment: Please note: ??Patients [...] Yoon MD CHEMISTRY ORDERABLES Performing Organization Address City/[facility] [place] [address] (ABNORMAL) Hemogram (12/07/2019 4:02 PM EDT) Analysis Performed At Patho logist Time Signature WBC 17.4 (H) 4.0 - 9.5 MELINA DOV x10(3)/[facility] LABORATORY RBC 4.58 4.58 - M[place] DOV 5.54 [facility] x10(6)/[facility] LABORATORY Hemoglobin 13.5 (L) 13.7 - MELINA DOV 16.5 gm/dL [facility] Hematocrit 40.8 40.5 - MELINA DOV 48.5 % [facility] MCV 89.1 82.9 - M[place] DOV 93.1 fL [facility] MCH 29.5 27.5 - MELINA MONAE 32.1 pg [facility] MCHC 33.1 32.0 - MELINA MONAE 35.7 gm/dL [facility] Platelets 238 145 - 357 [facility] x10(3)/[facility] LABORATORY RDWSD 48.8 (H) 36.0 - MELINA MONAE 45.0 [facility] LABORATORY RDWCV 15.0 (H) 11.4 - [facility] DOV 13.8 % [facility] MPV 12.2 7.6 - 12.9 MELINA MONAE [facility] LABORATORY nRBC % Auto 0.0 % [facility] nRBC Abs Auto 0.000 0.000 - MELINA MONAE 0.000 [facility] x10(3)/[facility] LABORATORY Specimen Anatomical Collection Method Collection Time Receive d Time (Source) Location / / Volume Laterality Blood specimen 12/07/2019 4:02 PM 020 4:08 (specimen) EDT PM EDT Resulting Agency Comment Spec In Lab Gretchen Yoon MD HEMATOLOGY ORDERABLES Performing Organization Address City/State/[place] [address] EKG 12 Lead (12/07/2019 [...] (Bezet) Calculated P -12 degrees MUSE SYSTEM Ruby Calculated R 10 degrees MUSE SYSTEM Ruby Calculated T -138 degrees MUSE SYSTEM Ruby INTERPRETATION Supraventricular tachycardia MUSE SYSTEM Low voltage [...] [facility] mmol/L [facility] Comment: Please note: ??Patients [...] Organization Address City/State/[place] [address] Heparin (unfractionated) Level (12/07/2019 11:43 AM EDT) athologist Signature Heparin UFH 0.59 IU/mL [facility] LABORATORY Comment: Guidelines for therapeutic [...] Lagos MD HEMATOLOGY ORDERABLES Performing Organization Address City/[facility]/[place] [address] Heparin (unfractionated) Level (12/07/2019 5:20 AM EDT) athologist Signature Heparin UFH 0.53 IU/mL [facility] LABORATORY Comment: Guidelines for therapeutic [...] Lagos MD HEMATOLOGY ORDERABLES Performing Organization Address City/[facility]/[place] [address] [facility] [address] (ABNORMAL) Differential, Automated (12/07/2019 5:20 AM EDT) Patholo gist Method Time Signature Neutrophils % 62.4 % [facility] Neutr Abs (ANC) 5.46 1.70 - [facility] 6.10 [facility] x10(3)/[facility] LABORATORY Lymphocytes % 20.3 % [facility] Lymphocytes Abs 1.8 0.9 - 3.2 [facility] x10(3)/[facility] LABORATORY Monocytes % 11.0 % [facility] Monocyte Abs 1.0 (H) 0.3 - 0.9 [facility] x10(3)/[facility] LABORATORY Eosinophils % 4.5 % [facility] Eosinophils Abs 0.4 0.0 - 0.4 [facility] x10(3)/[facility] LABORATORY Basophils % 0.9 % [facility] Basophils Abs 0.1 0.0 - 0.1 [facility] x10(3)/[facility] LABORATORY Immature Gran % 0.90 % [facility] Comment: Immature granulocytes(IG's)percentage an d absolute count will include metamyelocytes, myelocytes, and promyelo cytes. Blood smears from CBCs yielding IG's will be scanned manually for concor dance. If this scan disagrees with the automated IG or if promyelocytes are not ed, a manual differential will be performed. Pita Gran Abs 0.08 (H) 0.00 - 0.04 x10(3)/[facility] LABORATORY Specimen Anatomical Collection Method Collection Time Receive d Time (Source) Location / / Volume Laterality Blood specimen 12/07/2019 5:20 AM 020 5:37 (specimen) EDT AM EDT Resulting Agency Comment Spec In Lab Riki Stevens MD HEMATOLOGY ORDERABLES Performing Organization Address City/State/[place] [address] (ABNORMAL) Hemogram (12/07/2019 5:20 AM EDT) Analysis Performed At Patho logist Time Signature WBC 8.7 4.0 - 9.5 [facility] x10(3)/[facility] LABORATORY RBC 4.20 (L) 4.58 - [facility] 5.54 [facility] x10(6)/[facility] LABORATORY Hemoglobin 12.3 (L) 13.7 - [facility] 16.5 gm/dL [facility] Hematocrit 37.4 (L) 40.5 - MELINA MONAE 48.5 % [facility] MCV 89.0 82.9 - MELINA MONAE 93.1 [facility] LABORATORY MCH 29.3 27.5 - MELINA VILLANUEVACK 32.1 pg [facility] MCHC 32.9 32.0 - MELINA MONAE 35.7 gm/dL [facility] Platelets 181 145 - 357 MELINA SLAUGHTERS x10(3)/[facility] LABORATORY RDWSD 47.7 (H) 36.0 - MELINA MONAE 45.0 [facility] LABORATORY RDWCV 14.8 (H) 11.4 - [facility] DOV 13.8 % [facility] MPV 12.3 7.6 - 12.9 [facility] LABORATORY nRBC % Auto 0.0 % [facility] nRBC Abs Auto 0.000 0.000 - MELINA MARSHDOV 0.000 [facility] x10(3)/[facility] LABORATORY Specimen Anatomical Collection Method Collection Time Receive d Time (Source) Location / / Volume Laterality Blood specimen 12/07/2019 5:20 AM 020 5:37 (specimen) EDT AM EDT Resulting Agency Comment Spec In Lab Riki Stevens MD HEMATOLOGY ORDERABLES Performing Organization Address City/[facility]/[place] [address] Magnesium (12/07/2019 5:20 AM EDT) athologist Signature Magnesium 0.89 0.69 - 1.07 [facility] mmol/L [facility] Specimen Anatomical Collection Method Collection Time Receive d Time (Source) Location / / Volume Laterality Blood specimen 12/07/2019 5:20 AM 020 5:37 (specimen) EDT AM EDT Resulting Agency Comment Spec In Lab Gretchen Yoon MD CHEMISTRY ORDERABLES Performing Organization Address City/[facility] [place] [address] (ABNORMAL) BMP w/fasting Glucose (12/07/2019 5:20 AM EDT) athologist Signature Glucose 100 (H) 65 - 99 [facility] Fasting mg/dL [facility] Comment: ?Fasting* Glucose Interpretive [...] of Diabetes Mellitus, Position Statement from the [place] [employer]. ??Diabete s Care, Volume 33, Supplement 1, Jul 2009 BUN 14 10 - 20 mg/dL [facility] Creatinine 0.83 0.80 - 1.50 mg/dL [facility] Sodium 135 135 - 145 mmol/L [facility] Potassium 3.8 3.5 - 5.0 mmol/L [facility] Comment: Please note: ??Patients with WBC >100,00 0 may have falsely elevated Potassium levels. ??For accurate Potassium quantif ication in these patients send serum separator tube (gold top) for subsequent determinations. ??Contact the Clinical Chemistry Laboratory if there are any qu estions. Chloride 101 98 - 107 mmol/L [facility] CO2 20 (L) 22 - 31 mmol/L [facility] Anion Gap 14 5 - 15 mmol/L [facility] Calcium 8.8 8.5 - 10.5 mg/dL [facility] Estimated GFR 87 >=60 mL/min/1.73 m?? [facility] Comment: The eGFR was calculated using the CKD-EP I equation. As with all creatinine based estimates of kidney function, eGFR values calculated with the CKD-EPI equation are not accurate in patients wi th acute kidney failure, extremes of body mass or the acutely ill. [email or web address] CITYnkf eGFR 101 >=60 mL/min/1.73 m?? [facility] Comment: The eGFR was calculated using the CKD-EP I equation. As with all creatinine based estimates of kidney function, eGFR values calculated with the CKD-EPI equation are not accurate in patients wi th acute kidney failure, extremes of body mass or the acutely ill. [email or web address] CITYnkf Specimen Anatomical Collection Method Collection Time Receive d Time (Source) Location / / Volume Laterality Blood specimen 12/07/2019 5:20 AM 020 5:37 (specimen) EDT AM EDT Resulting Agency Comment Spec In Lab Gretchen Yoon MD CHEMISTRY ORDERABLES Performing Organization Address City/State/[place] [address] Heparin (unfractionated) Level (12/06/2019 10:14 PM EDT) athologist Signature Heparin UFH 0.29 IU/mL [facility] LABORATORY Comment: Guidelines for therapeutic [...] Organization Address City/State/[place] [address] Head wo Contrast [...] For questions regarding this report, please contact [facility] number below. ? Electronically signed by: Merari Collins [facility] ([phone]), at 12/06/2019 10:06 PM Narrative 12/06/2019 10:06 [...] number below. Electronically signed by: Merari Collins [facility] ([phone]), at 12/06/2019 10:06 PM Paris Lagos MD IMG CT ORDERABLES (ABNORMAL) Hemogram (12/06/2019 4:20 PM EDT) Analysis Performed At Patho logist Time Signature WBC 10.4 (H) 4.0 - 9.5 [facility] DOV x10(3)/[facility] LABORATORY RBC 4.32 (L) 4.58 - MELINA DOV 5.54 [facility] x10(6)/[facility] LABORATORY Hemoglobin 12.5 (L) 13.7 - [facility] DOV 16.5 gm/dL [facility] Hematocrit 38.4 (L) 40.5 - [facility] DOV 48.5 % [facility] MCV 88.9 82.9 - [facility] DOV 93.1 [facility] LABORATORY MCH 28.9 27.5 - MELINA DOV 32.1 pg [facility] MCHC 32.6 32.0 - MELINA DOV 35.7 gm/dL [facility] Platelets 194 145 - 357 [facility] x10(3)/[facility] LABORATORY RDWSD 46.9 (H) 36.0 - [facility] DOV 45.0 [facility] LABORATORY RDWCV 14.6 (H) 11.4 - [facility] DOV 13.8 % [facility]ORATORY MPV 11.9 7.6 - 12.9 [facility] nRBC % Auto 0.0 % [facility] nRBC Abs Auto 0.000 0.000 - [place] DOV 0.000 [facility] x10(3)/[facility] LABORATORY Specimen Anatomical Collection Method Collection Time Receive d Time (Source) Location / / Volume Laterality Blood specimen 12/06/2019 4:20 PM 020 4:31 (specimen) EDT PM EDT Resulting Agency Comment Spec In Lab Gretchen Yoon MD HEMATOLOGY ORDERABLES Performing Organization Address City/State/ZIP Code Phon e Number [place] [id number] Heparin (unfractionated) Level (12/06/2019 4:20 PM EDT) athologist Signature Heparin UFH 0.30 IU/mL [facility] LABORATORY Comment: Guidelines for therapeutic [...] HEMATOLOGY ORDERABLES Performing Organization Address [facility] [place] [address] [facility] [address] Heparin (unfractionated) Level (12/06/2019 10:02 AM EDT) athologist Signature Heparin UFH <0.04 IU/mL [facility] LABORATORY Comment: Guidelines for therapeutic [...] Lagos MD HEMATOLOGY ORDERABLES Performing Organization Address City/[facility]/[place] [address] Magnesium (12/06/2019 3:36 AM EDT) P athologist Signature Magnesium 0.86 0.69 - 1.07 [facility] Specimen Anatomical Collection Method Collection Time Receive d Time (Source) Location / / Volume Laterality Blood specimen 12/06/2019 3:36 AM 020 3:45 (specimen) EDT AM EDT Resulting Agency Comment Spec In Lab Gretchen Yoon MD CHEMISTRY ORDERABLES Performing Organization Address City/State/[place] [address] (ABNORMAL) BMP w/fasting Glucose (12/06/2019 3:36 AM EDT) P athologist Signature Glucose 103 (H) 65 - 99 [facility] Fasting mg/dL [facility] Comment: ?Fasting* Glucose Interpretive [...] of Diabetes Mellitus, Position Statement from the [place] [employer]. ??Diabete s Care, Volume 33, Supplement 1, Jul 2009 BUN 20 10 - 20 mg/dL [facility] Creatinine 0.88 0.80 - 1.50 mg/dL [facility]OR[facility] Sodium 136 135 - 145 mmol/L [facility] Potassium 4.0 3.5 - 5.0 mmol/L [facility] Comment: Please note: ??Patients with WBC >100,00 0 may have falsely elevated Potassium levels. ??For accurate Potassium quantif ication in these patients send serum separator tube (gold top) for subsequent determinations. ??Contact the Clinical Chemistry Laboratory if there are any qu estions. Chloride 103 98 - 107 mmol/L [facility] CO2 19 (L) 22 - 31 mmol/L [facility] Anion Gap 14 5 - 15 mmol/L [facility] Calcium 8.7 8.5 - 10.5 mg/dL [facility] Estimated GFR 85 >=60 mL/min/1.73 m?? [facility] Comment: The eGFR was calculated using the CKD-EP I equation. As with all creatinine based estimates of kidney function, eGFR values calculated with the CKD-EPI equation are not accurate in patients wi th acute kidney failure, extremes of body mass or the acutely ill. [email or web address] eGFR 99 >=60 mL/min/1.73 m?? [facility] Comment: The eGFR was calculated using the CKD-EP I equation. As with all creatinine based estimates of kidney function, eGFR values calculated with the CKD-EPI equation are not accurate in patients wi th acute kidney failure, extremes of body mass or the acutely ill. [email or web address] Specimen Anatomical Collection Method Collection Time Receive d Time (Source) Location / / Volume Laterality Blood specimen 12/06/2019 3:36 AM 020 3:45 (specimen) EDT AM EDT Resulting Agency Comment Spec In Lab Gretchen Yoon MD CHEMISTRY ORDERABLES Performing Organization Address City/State/[place] [address] (ABNORMAL) Hemogram (12/06/2019 3:36 AM EDT) Analysis Performed At Patho logist Time Signature WBC 9.2 4.0 - 9.5 [facility] x10(3[facility] LABORATORY RBC 3.99 (L) 4.58 - [facility] DVO 5.54 [facility] x10(6)/[facility] LABORATORY Hemoglobin 11.9 (L) 13.7 - [facility] DOV 16.5 gm/dL [facility] Hematocrit 35.5 (L) 40.5 - [facility] 48.5 % [facility] MCV 89.0 82.9 - [facility] 93.1 [facility] LABORATORY MCH 29.8 27.5 - MELINA DOV 32.1 pg [facility] MCHC 33.5 32.0 - [facility] 35.7 gm/dL [facility] Platelets 164 145 - 357 [facility] x10(3)/[facility] LABORATORY RDWSD 47.6 (H) 36.0 - MEL[place] DOV 45.0 [facility] LABORATORY RDWCV 14.7 (H) 11.4 - MELINA DOV 13.8 % [facility] MPV 11.9 7.6 - 12.9 [facility] LABORATORY nRBC % Auto 0.0 % [facility] nRBC Abs Auto 0.000 0.000 - [place] DOV 0.000 [facility] x10(3)/[facility] LABORATORY Specimen Anatomical Collection Method Collection Time Receive d Time (Source) Location / / Volume Laterality Blood specimen 12/06/2019 3:36 AM 020 3:45 (specimen) EDT AM EDT Resulting Agency Comment Spec In Lab Gretchen Yoon MD HEMATOLOGY ORDERABLES Performing Organization Address City/State/[place] [address] (ABNORMAL) Differential, Automated (12/05/2019 10:52 PM EDT) [facility] Method Time Signature Neutrophils % 61.9 % [facility] Neutr Abs (ANC) 6.02 1.70 - [facility] 6.10 [facility] x10(3)/[facility] LABORATORY Lymphocytes % 22.4 % [facility] Lymphocytes Abs 2.2 0.9 - 3.2 [facility] x10(3)/[facility] LABORATORY Monocytes % 10.4 % [facility] Monocyte Abs 1.0 (H) 0.3 - 0.9 [facility] x10(3)/[facility] LABORATORY Eosinophils % 4.1 % [facility] Eosinophils Abs 0.4 0.0 - 0.4 [facility] x10(3)/[facility] LABORATORY Basophils % 0.7 % [facility] Basophils Abs 0.1 0.0 - 0.1 [facility] x10(3)/[facility] LABORATORY Immature Gran % 0.50 % [facility] Comment: Immature granulocytes(IG's)percentage an d absolute count will include metamyelocytes, myelocytes, and promyelo cytes. Blood smears from CBCs yielding IG's will be scanned manually for concor dance. If this scan disagrees with the automated IG or if promyelocytes are not ed, a manual differential will be performed. Pita Gran Abs 0.05 (H) 0.00 - 0.04 x10(3)/[facility] LABORATORY Specimen Anatomical Collection Method Collection Time Receive d Time (Source) Location / / Volume Laterality Blood specimen 12/05/2019 10:52 0 (specimen) PM EDT 10:59 PM EDT Resulting Agency Comment Spec In Lab Mandi Barrera MD HEMATOLOGY ORDERABLES Performing Organization Address City/State/[place] [address] (ABNORMAL) Hemogram (12/05/2019 10:52 PM EDT) Analysis Performed At Patho logist Time Signature WBC 9.7 (H) 4.0 - 9.5 [facility] DOV x10(3)/[facility] LABORATORY RBC 4.07 (L) 4.58 - MEL[place] DOV 5.54 [facility] x10(6)/[facility] LABORATORY Hemoglobin 11.9 (L) 13.7 - [facility] DOV 16.5 gm/dL [facility] Hematocrit 36.4 (L) 40.5 - [facility] 48.5 % [facility] MCV 89.4 82.9 - [facility] 93.1 [facility] LABORATORY MCH 29.2 27.5 - [facility] DOV 32.1 pg [facility] MCHC 32.7 32.0 - [facility] DOV 35.7 gm/dL [facility] Platelets 167 145 - 357 [facility] x10(3)/[facility] LABORATORY RDWSD 47.7 (H) 36.0 - [facility] DOV 45.0 [facility] LABORATORY RDWCV 14.6 (H) 11.4 - [facility] DOV 13.8 % [facility]ORATORY MPV 12.1 7.6 - 12.9 [facility] DOV [facility] LABORATORY nRBC % Auto 0.0 % [facility] nRBC Abs Auto 0.000 0.000 - [facility] DOV 0.000 [facility] x10(3)/[facility] LABORATORY Specimen Anatomical Collection Method Collection Time Receive d Time (Source) Location / / Volume Laterality Blood specimen 12/05/2019 10:52 0 (specimen) PM EDT 10:59 PM EDT Resulting Agency Comment Spec In Lab Mandi Barrera MD HEMATOLOGY ORDERABLES Performing Organization Address City/State/ZIP Code Phon e Number [place] [id number] LAB[address] Heparin (unfractionated) Level (12/05/2019 10:52 PM EDT) P athologist Signature Heparin UFH <0.04 IU/mL [facility] LABORATORY Comment: Guidelines for therapeutic [...] Organization Address City/State/ZIP Code Phon e Number [place] [phone]OS[address] LAB[address]ORY Drive MRI Brain wwo Contrast [...] ? Electronically signed by: ALBA Jenkins [facility] ([phone]), at 12/05/2019 10:02 PM Narrative 12/05/2019 10:02 [...] number below. Electronically signed by: Merari Collins [facility] ([phone]), at 12/05/2019 10:02 PM Paris Lagos MD IMG MRI ORDERABLES (ABNORMAL) Hemogram (12/05/2019 1:00 PM EDT) Analysis Performed At Patho logist Time Signature WBC 8.7 4.0 - 9.5 [facility] LABORATORY RBC 4.17 (L) 4.58 - [place] DOV 5.54 [facility] x10(6)/[facility] LABORATORY Hemoglobin 12.4 (L) 13.7 - [place] DOV 16.5 gm/dL [facility] LABORATORY Hematocrit 37.0 (L) 40.5 - [place] DOV 48.5 % [facility] LABORATORY MCV 88.7 82.9 - [place] DOV 93.1 [facility] LABORATORY MCH 29.7 27.5 - [place] DOV 32.1 pg [facility] MCHC 33.5 32.0 - [place] DOV 35.7 gm/dL [facility] Platelets 173 145 - 357 [facility] x[facility] LABORATORY RDWSD 47.3 (H) 36.0 - [facility] DOV 45.0 [facility] LABORATORY RDWCV 14.6 (H) 11.4 - [place] DOV 13.8 % [facility]ORATORY MPV 12.1 7.6 - 12.9 [facility] DOV [facility] LABORATORY nRBC % Auto 0.0 % [facility] nRBC Abs Auto 0.000 0.000 - [place] DOV 0.000 [facility] x10(3)/[facility] LABORATORY Specimen Anatomical Collection Method Collection Time Receive d Time (Source) Location / / Volume Laterality Blood specimen 12/05/2019 1:00 PM 020 1:13 (specimen) EDT PM EDT Resulting Agency Comment Spec In Lab Gretchen Yoon MD HEMATOLOGY ORDERABLES Performing Organization Address City/State/ZIP Code Phon e Number [place] [id number] EKG 12 Lead (12/05/2019 10:52 AM EDT) Component Value Ref Range Test Analysis Performed Pathologis t Method Time At Signature Ventricular rate 72 BPM MUSE SYSTEM Atrial Rate 72 BPM MUSE SYSTEM P-R Interval 138 ms MUSE SYSTEM QRS Duration 96 ms MUSE SYSTEM Q-T Interval 396 ms MUSE SYSTEM QTC Calculated 433 ms MUSE SYSTEM (Bezet) Calculated P Ruby 65 degrees MUSE SYSTEM Calculated R Ruby 13 degrees MUSE SYSTEM Calculated T Ruby 0 degrees MUSE SYSTEM INTERPRETATION Sinus rhythm Occasional Premature ventricular complexe s MUSE SYSTEM Possible Inferior infarct (cited on or before 29-NOV-2019) Abnormal ECG When compared with ECG of 04-DEC-2019 10:43, Sinus rhythm has replaced Atrial fibrillation Vent. rate has decreased BY ??86 BPM Confirmed by MD Ceja Daniel ([id number]) on 12/05/2019 3:55:22 PM Specimen Anatomical Collection Method Collection Time Receive d Time (Source) Location / / Volume Laterality 12/05/2019 10:52 12/05/2019 3:55 AM EDT PM EDT Paris Lagos MD ECG ORDERABLES Performing Organization Address City/State/ZIP Code Phon e Number MUSE SYSTEM Duplex Study for DVT, Bilat legs (12/05/2019 7:00 AM EDT) Component Value Ref Test Analysis Performed At [facility] gist Range Method Time Signature VB Text Department: Vascular Surgery Lab VASCUBASE Report Patient: [id number] (ANGEL LUIS SALINAS) CPT: 11346 ICD10: I26.99 Referring Physician: GRETCHEN YOON ?? [...] [facility] mmol/L [facility]OR[facility]ORY Specimen Anatomical Collection Method Collection Time Receive d Time (Source) Location / / Volume Laterality Blood specimen 12/05/2019 4:18 AM 020 4:31 (specimen) EDT AM EDT Resulting Agency Comment Spec In Lab Gretchen Yoon MD CHEMISTRY ORDERABLES Performing Organization Address City/State/[place] [address] (ABNORMAL) BMP w/fasting Glucose (12/05/2019 4:18 AM EDT) P athologist Signature Glucose 104 (H) 65 - 99 [facility] Fasting mg/dL [facility] Comment: ?Fasting* Glucose Interpretive [...] of Diabetes Mellitus, Position Statement from the [place] [employer]. ??Diabete s Care, Volume 33, Supplement 1, Jul 2009 BUN 21 (H) 10 - 20 mg/dL [facility] Creatinine 1.02 0.80 - 1.50 mg/dL [facility] Sodium 136 135 - 145 mmol/L [facility] Potassium 3.9 3.5 - 5.0 mmol/L [facility] Comment: Please note: ??Patients with WBC >100,00 0 may have falsely elevated Potassium levels. ??For accurate Potassium quantif ication in these patients send serum separator tube (gold top) for subsequent determinations. ??Contact the Clinical Chemistry Laboratory if there are any qu estions. Chloride 103 98 - 107 mmol/L [facility] CO2 21 (L) 22 - 31 mmol/L [facility] Anion Gap 12 5 - 15 mmol/L [facility] Calcium 8.8 8.5 - 10.5 mg/dL [facility] Estimated GFR 73 >=60 mL/min/1.73 m?? [facility] Comment: The eGFR was calculated using the CKD-EP I equation. As with all creatinine based estimates of kidney function, eGFR values calculated with the CKD-EPI equation are not accurate in patients wi th acute kidney failure, extremes of body mass or the acutely ill. [email or web address] eGFR 84 >=60 mL/min/1.73 m?? [facility] Comment: The eGFR was calculated using the CKD-EP I equation. As with all creatinine based estimates of kidney function, eGFR values calculated with the CKD-EPI equation are not accurate in patients wi th acute kidney failure, extremes of body mass or the acutely ill. [email or web address] Specimen Anatomical Collection Method Collection Time Receive d Time (Source) Location / / Volume Laterality Blood specimen 12/05/2019 4:18 AM 020 4:31 (specimen) EDT AM EDT Resulting Agency Comment Spec In Lab Gretchen Yoon MD CHEMISTRY ORDERABLES Performing Organization Address City/State/[place] [address] (ABNORMAL) Hemogram (12/05/2019 4:18 AM EDT) Analysis Performed At Patho logist Time Signature WBC 8.6 4.0 - 9.5 [facility] x[facility](3[facility] LABORATORY RBC 4.28 (L) 4.58 - [place] DOV 5.54 [facility] x10(6)/[facility] LABORATORY Hemoglobin 12.4 (L) 13.7 - [facility] DOV 16.5 gm/dL [facility] Hematocrit 37.3 (L) 40.5 - [facility] 48[facility] % [facility] MCV 87.1 82.9 - [facility] 93.1 [facility] LABORATORY MCH 29.0 27.5 - [place] DOV 32.1 pg [facility] MCHC 33.2 32.0 - [place] DOV 35.7 gm/dL [facility] Platelets 163 145 - 357 [facility] x10(3)/[facility] LABORATORY RDWSD 46.4 (H) 36.0 - [facility] DOV 45.0 [facility] LABORATORY RDWCV 14.4 (H) 11.4 - [facility] DOV 13.8 % [facility] LABORATORY MPV 11.7 7.6 - 12.9 [facility] nRBC % Auto 0.0 % [facility] nRBC Abs Auto 0.000 0.000 - [place] [employer] 0.000 [facility] x10(3)/[facility] LABORATORY Specimen Anatomical Collection Method Collection Time Receive d Time (Source) Location / / Volume Laterality Blood specimen 12/05/2019 4:18 AM 020 4:31 (specimen) EDT AM EDT Resulting Agency Comment Spec In Lab Gretchen Yoon MD HEMATOLOGY ORDERABLES Performing Organization Address City/State/[place] [address] Cardiac for Morphology [...] For questions regarding this report, please contact [facility] number below. ? Electronically signed by: Roselyn Luciano [facility] ([phone]), at 12/04/2019 6:16 PM Narrative 12/04/2019 6:16 [...] from neck/greatest puja meter to back wall: MALTESE 91, CAU 13: ??19 mm CORTES ??1, [...] from neck/greatest puja meter to back wall: MALTESE 91, CAU 13: 19 mm CORTES 1, [...] number below. Electronically signed by: Roselyn Luciano [facility] ([phone]), at 12/04/2019 6:16 PM Gretchen Yoon MD IMG CT ORDERABLES (ABNORMAL) Hemogram (12/04/2019 12:55 PM EDT) Analysis Performed At Patho logist Time Signature WBC 8.9 4.0 - 9.5 [facility] x10(3)/[facility] LABORATORY RBC 4.69 4.58 - [facility] 5.54 [facility] x10(6)/[facility] LABORATORY Hemoglobin 13.5 (L) 13.7 - [facility] 16.5 gm/dL [facility]ATORY Hematocrit 41.7 40.5 - [place] MONAE 48.5 % [facility] LABORATORY MCV 88.9 82.9 - [place] MONAE 93.1 [facility] LABORATORY MCH 28.8 27.5 - [place] MONAE 32.1 pg [facility] LABORATORY MCHC 32.4 32.0 - [place] MONAE 35.7 gm/dL [facility] Platelets 196 145 - 357 [place] SLAUGHTERS x10(3)/[facility] LABORATORY RDWSD 46.7 (H) 36.0 - [place] MONAE 45.0 [facility] LABORATORY RDWCV 14.5 (H) 11.4 - [place] MONAE 13.8 % [facility] LABORATORY MPV 12.1 7.6 - 12.9 [place] DOV [facility] LABORATORY nRBC % Auto 0.0 % [facility] nRBC Abs Auto 0.000 0.000 - [place] MONAE 0.000 [facility] x10(3)/[facility] LABORATORY Specimen Anatomical Collection Method Collection Time Receive d Time (Source) Location / / Volume Laterality Blood specimen 12/04/2019 12:55 0 1:06 (specimen) PM EDT PM EDT Resulting Agency Comment Spec In Lab Gretchen Yoon MD HEMATOLOGY ORDERABLES Performing Organization Address City/State/[place] [address] EKG 12 Lead (12/04/2019 10:43 AM EDT) Component Value Ref Range Test Analysis Performed Pathologis t Method Time At Signature Ventricular rate 158 BPM MUSE SYSTEM Atrial Rate 102 BPM MUSE SYSTEM QRS Duration 92 ms MUSE SYSTEM Q-T Interval 294 ms MUSE SYSTEM QTC Calculated 476 ms MUSE SYSTEM (Bezet) Calculated R Ruby 17 degrees MUSE SYSTEM Calculated T Ruby 90 degrees MUSE SYSTEM INTERPRETATION Atrial fibrillation with rapid ventricular response MUSE SYSTEM Possible Inferior infarct (cited on or before 29-NOV-2019) Abnormal ECG When compared with ECG of 30-NOV-2019 21:07, Atrial fibrillation has replaced Sinus rhythm Vent. rate has increased BY ??65 BPM Confirmed by MD Ceja Daniel ([id number]) on 12/05/2019 8:59:44 AM Specimen Anatomical Collection [...] [facility] mmol/L [facility] Specimen Anatomical Collection Method Collection Time Receive d Time (Source) Location / / Volume Laterality Blood specimen 12/04/2019 4:28 AM 020 4:40 (specimen) EDT AM EDT Resulting Agency Comment Spec In Lab Gretchen Yoon MD CHEMISTRY ORDERABLES Performing Organization Address City/State/[place] [address] (ABNORMAL) BMP w/fasting Glucose (12/04/2019 4:28 AM EDT) P athologist Signature Glucose 108 (H) 65 - 99 [facility] Fasting mg/dL [facility] Comment: ?Fasting* Glucose Interpretive [...] of Diabetes Mellitus, Position Statement from the [place] [employer]. ??Diabete s Care, Volume 33, Supplement 1, Jul 2009 BUN 19 10 - 20 mg/dL [facility] Creatinine 0.89 0.80 - 1.50 mg/dL [facility] Sodium 135 135 - 145 mmol/L [facility] Potassium 4.2 3.5 - 5.0 mmol/L [facility] Comment: Please note: ??Patients with WBC >100,00 0 may have falsely elevated Potassium levels. ??For accurate Potassium quantif ication in these patients send serum separator tube (gold top) for subsequent determinations. ??Contact the Clinical Chemistry Laboratory if there are any qu estions. Chloride 104 98 - 107 mmol/L [facility] CO2 19 (L) 22 - 31 mmol/L [facility] Anion Gap 12 5 - 15 mmol/L [facility] Calcium 8.5 8.5 - 10.5 mg/dL [facility] Estimated GFR 85 >=60 mL/min/1.73 m?? [facility] Comment: The eGFR was calculated using the CKD-EP I equation. As with all creatinine based estimates of kidney function, eGFR values calculated with the CKD-EPI equation are not accurate in patients wi th acute kidney failure, extremes of body mass or the acutely ill. [email or web address] eGFR 98 >=60 mL/min/1.73 m?? [facility] Comment: The eGFR was calculated using the CKD-EP I equation. As with all creatinine based estimates of kidney function, eGFR values calculated with the CKD-EPI equation are not accurate in patients wi th acute kidney failure, extremes of body mass or the acutely ill. [email or web address] [email or web address] CITYnkf Specimen Anatomical Collection Method Collection Time Receive d Time (Source) Location / / Volume Laterality Blood specimen 12/04/2019 4:28 AM 020 4:40 (specimen) EDT AM EDT Resulting Agency Comment Spec In Lab Gretchen Yoon MD CHEMISTRY ORDERABLES Performing Organization Address City/State/[place] [address] (ABNORMAL) Hemogram (12/04/2019 4:28 AM EDT) Analysis Performed At Patho logist Time Signature WBC 7.8 4.0 - 9.5 [facility] x10(3)/[facility] LABORATORY RBC 4.10 (L) 4.58 - [facility] 5.54 [facility] x10(6)/[facility] LABORATORY Hemoglobin 12.0 (L) 13.7 - [place] MONAE 16.5 gm/dL [facility] Hematocrit 36.5 (L) 40.5 - [place] MONAE 48.5 % [facility] MCV 89.0 82.9 - [facility] 93[facility]1 [facility] LABORATORY MCH 29.3 27.5 - [place] 32.1 pg [facility] LAB[facility]ATORY MCHC 32.9 32.0 - [place] MONAE 35.7 gm/dL [facility] Platelets 151 145 - 357 [facility] x10(3)/[facility] LABORATORY RDWSD 46.9 (H) 36.0 - [place] MONAE 45.0 [facility] LABORATORY RDWCV 14.4 (H) 11.4 - [place] DOV 13.8 % [facility]ATORY MPV 12.2 7.6 - 12.9 [facility] nRBC % Auto 0.0 % [facility] nRBC Abs Auto 0.000 0.000 - [place] MONAE 0.000 [facility] x10(3)/[facility] LABORATORY Specimen Anatomical Collection Method Collection Time Receive d Time (Source) Location / / Volume Laterality Blood specimen 12/04/2019 4:28 AM 020 4:40 (specimen) EDT AM EDT Resulting Agency Comment Spec In Lab Gretchen Yoon MD HEMATOLOGY ORDERABLES Performing Organization Address City/State/[place] [address] Potassium (12/03/2019 7:55 PM EDT) P athologist Signature Potassium 3.9 3.5 - 5.0 [facility] mmol/L [facility] Comment: Please note: ??Patients [...] Yoon MD CHEMISTRY ORDERABLES Performing Organization Address City/[facility]/[place] [address] Potassium (12/03/2019 1:57 PM EDT) P athologist Signature Potassium 3.7 3.5 - 5.0 [facility] DOV mmol/L [facility] Comment: Please note: ??Patients [...] Yoon MD CHEMISTRY ORDERABLES Performing Organization Address City/[facility]/[place] [address] (ABNORMAL) Hemogram (12/03/2019 1:57 PM EDT) Analysis Performed At Patho logist Time Signature WBC 8.8 4.0 - 9.5 [place] DOV x10(3)/[facility] LABORATORY RBC 4.27 (L) 4.58 - [place] DOV 5.54 [facility] x10(6)/[facility] LABORATORY Hemoglobin 12.5 (L) 13.7 - [place] DOV 16.5 gm/dL [facility] Hematocrit 37.5 (L) 40.5 - [place] DOV 48.5 % [facility] MCV 87.8 82.9 - [place] DOV 93.1 [facility] LABORATORY MCH 29.3 27.5 - [place] DOV 32.1 pg [facility] MCHC 33.3 32.0 - [place] DOV 35.7 gm/dL [facility] Platelets 158 145 - 357 [place] DOV x10(3)/[facility] LABORATORY RDWSD 46.9 (H) 36.0 - [place] DOV 45.0 [facility] LABORATORY RDWCV 14.5 (H) 11.4 - [place] MONAE 13.8 % [facility]ORATORY MPV 12.2 7.6 - 12.9 [place] MONAE fL [facility] nRBC % Auto 0.0 % [facility] nRBC Abs Auto 0.000 0.000 - [place] MONAE 0.000 [facility] x10(3)/[facility] LABORATORY Specimen Anatomical Collection Method Collection Time Receive d Time (Source) Location / / Volume Laterality Blood specimen 12/03/2019 1:57 PM 020 2:21 (specimen) EDT PM EDT Resulting Agency Comment Spec In Lab Gretchen Yoon MD HEMATOLOGY ORDERABLES Performing Organization Address City/State/ZIP Code Phon e Number [address] Magnesium (12/03/2019 4:02 AM EDT) athologist Signature Magnesium 0.79 0.69 - 1.07 [facility] mmol/L [facility] LABORATORY Specimen Anatomical Collection Method Collection Time Receive d Time (Source) Location / / Volume Laterality Blood specimen 12/03/2019 4:02 AM 020 4:16 (specimen) EDT AM EDT Resulting Agency Comment Spec In Lab Gretchen Yoon MD CHEMISTRY ORDERABLES Performing Organization Address City/[facility]/ZIP Code Phon e Number [address] (ABNORMAL) BMP w/fasting Glucose (12/03/2019 4:02 AM EDT) P athologist Signature Glucose 100 (H) 65 - 99 [facility] Fasting mg/dL [facility] Comment: ?Fasting* Glucose Interpretive [...] of Diabetes Mellitus, Position Statement from the [place] [employer]. ??Diabete s Care, Volume 33, Supplement 1, Jul 2009 BUN 17 10 - 20 mg/dL [facility]ORY Creatinine 0.95 0.80 - 1.50 mg/dL [facility] LABOR[facility]ORY Sodium 136 135 - 145 mmol/L [facility]ORY Potassium 3.4 (L) 3.5 - 5.0 mmol/L [facility] Comment: Please note: ??Patients with WBC >100,00 0 may have falsely elevated Potassium levels. ??For accurate Potassium quantif ication in these patients send serum separator tube (gold top) for subsequent determinations. ??Contact the Clinical Chemistry Laboratory if there are any qu estions. Chloride 103 98 - 107 mmol/L [facility] CO2 18 (L) 22 - 31 mmol/L [facility] Anion Gap 15 5 - 15 mmol/L [facility] Calcium 8.3 (L) 8.5 - 10.5 mg/dL [facility] Estimated GFR 79 >=60 mL/min/1.73 m?? [facility] Comment: The eGFR was calculated using the CKD-EP I equation. As with all creatinine based estimates of kidney function, eGFR values calculated with the CKD-EPI equation are not accurate in patients wi th acute kidney failure, extremes of body mass or the acutely ill. [email or web address] CITYnkf eGFR 92 >=60 mL/min/1.73 m?? [facility] Comment: The eGFR was calculated using the CKD-EP I equation. As with all creatinine based estimates of kidney function, eGFR values calculated with the CKD-EPI equation are not accurate in patients wi th acute kidney failure, extremes of body mass or the acutely ill. [email or web address] [email or web address] CITYnkf Specimen Anatomical Collection Method Collection Time Receive d Time (Source) Location / / Volume Laterality Blood specimen 12/03/2019 4:02 AM 020 4:16 (specimen) EDT AM EDT Resulting Agency Comment Spec In Lab Gretchen Yoon MD CHEMISTRY ORDERABLES Performing Organization Address City/State/ZIP Code Phon e Number [address] (ABNORMAL) Hemogram (12/03/2019 4:02 AM EDT) Analysis Performed At Patho logist Time Signature WBC 9.1 4.0 - 9.5 [facility] DOV x10(3)/[facility] LABORATORY RBC 4.01 (L) 4.58 - [place] DOV 5.54 [facility] x10(6)/[facility] LABORATORY Hemoglobin 11.8 (L) 13.7 - [place] DOV 16.5 gm/dL [facility] LABORATORY Hematocrit 35.6 (L) 40.5 - [place] DOV 48.5 % [facility] MCV 88.8 82.9 - [facility] LABORATORY MCH 29.4 27.5 - [place] DOV 32.1 pg [facility]ATORY MCHC 33.1 32.0 - [place] DOV 35.7 gm/dL [facility] Platelets 130 (L) 145 - 357 [facility] x[facility](3[facility] LABORATORY RDWSD 46.6 (H) 36.0 - [facility] DOV 45.0 [facility] LABORATORY RDWCV 14.4 (H) 11.4 - [facility] DOV 13.8 % [facility] LABORATORY MPV 12.4 7.6 - 12.9 [facility] DOV [facility] LABORATORY nRBC % Auto 0.0 % [facility] nRBC Abs Auto 0.000 0.000 - [place] DOV 0.000 [facility] x10(3)/[facility] LABORATORY Specimen Anatomical Collection Method Collection Time Receive d Time (Source) Location / / Volume Laterality Blood specimen 12/03/2019 4:02 AM 020 4:16 (specimen) EDT AM EDT Resulting Agency Comment Spec In Lab Gretchen Yoon MD HEMATOLOGY ORDERABLES Performing Organization Address City/State/[place] [address] XR Chest One View [...] below. ? Electronically signed by: Ashly Marley [facility] ([phone]), at 12/02/2019 1:35 PM Narrative 12/02/2019 1:35 [...] - 9.5 [facility] LABORATORY RBC 4.00 (L) 4.58 - [place] DOV 5.54 [facility] x10(6)/[facility] LABORATORY Hemoglobin 11.9 (L) 13.7 - [facility] DOV 16.5 gm/dL [facility] LABORATORY Hematocrit 35.7 (L) 40.5 - [place] DOV 48.5 % [facility] LABORATORY MCV 89.3 82.9 - [place] DOV 93.1 [facility] LABORATORY MCH 29.8 27.5 - [place] DOV 32.1 pg [facility] LABORATORY MCHC 33.3 32.0 - [place] DOV 35.7 gm/dL [facility] LABORATORY Platelets 120 (L) 145 - 357 [facility] x10(3)/[facility] LABORATORY RDWSD 47.5 (H) 36.0 - [place] DOV 45.0 [facility] LABORATORY RDWCV 14.6 (H) 11.4 - [place] DOV 13.8 % [facility] LABORATORY MPV 12.0 7.6 - 12.9 [facility] LAB[facility]ORY nRBC % Auto 0.0 % [facility] nRBC Abs Auto 0.000 0.000 - [place] DOV 0.000 [facility] x10(3)/[facility] LABORATORY Specimen Anatomical Collection Method Collection Time Receive d Time (Source) Location / / Volume Laterality Blood specimen 12/02/2019 12:50 0 1:22 (specimen) PM EDT PM EDT Resulting Agency Comment Spec In Lab Gretchen Yoon MD HEMATOLOGY ORDERABLES Performing Organization Address City/State/ZIP Code Phon e Number [address] Blue Tube HOLD (12/02/2019 4:55 AM EDT) P athologist Signature Blue Hold Sample in [facility]. [facility] LABORATORY Specimen Anatomical Collection Method Collection Time Receive d Time (Source) Location / / Volume Laterality Blood specimen Venous Draw / 12/02/2019 4:55 AM 2019 5:03 (specimen) Unknown EDT AM EDT Darrell Glasgow MD HEMATOLOGY ORDERABLES Performing Organization Address City/[facility]/ZIP Code Phon e Number [address] Magnesium (12/02/2019 4:55 AM EDT) athologist Signature Magnesium 0.85 0.69 - 1.07 [facility] mmol/L [facility] LABORATORY Specimen Anatomical Collection Method Collection Time Receive d Time (Source) Location / / Volume Laterality Blood specimen 12/02/2019 4:55 AM 020 5:02 (specimen) EDT AM EDT Resulting Agency Comment Spec In Lab Gretchen Yoon MD CHEMISTRY ORDERABLES Performing Organization Address City/State/ZIP Code Phon e Number [address] (ABNORMAL) BMP w/fasting Glucose (12/02/2019 4:55 AM EDT) P athologist Signature Glucose 114 (H) 65 - 99 [facility] Fasting mg/dL [facility] LABORATORY Comment: ?Fasting* Glucose Interpretive [...] of Diabetes Mellitus, Position Statement from the [place] [employer]. ??Diabete s Care, Volume 33, Supplement 1, Jul 2009 BUN 13 10 - 20 mg/dL [facility] LABORATORY Creatinine 0.93 0.80 - 1.50 mg/dL [facility] LABORATORY Sodium 135 135 - 145 mmol/L [facility] LABORATORY Potassium 3.7 3.5 - 5.0 mmol/L [facility] Comment: Please note: ??Patients with WBC >100,00 0 may have falsely elevated Potassium levels. ??For accurate Potassium quantif ication in these patients send serum separator tube (gold top) for subsequent determinations. ??Contact the Clinical Chemistry Laboratory if there are any qu estions. Chloride 105 98 - 107 mmol/L [facility] CO2 18 (L) 22 - 31 mmol/L [facility] Anion Gap 12 5 - 15 mmol/L [facility] Calcium 8.1 (L) 8.5 - 10.5 mg/dL [facility] Estimated GFR 81 >=60 mL/min/1.73 m?? [facility] Comment: The eGFR was calculated using the CKD-EP I equation. As with all creatinine based estimates of kidney function, eGFR values calculated with the CKD-EPI equation are not accurate in patients wi th acute kidney failure, extremes of body mass or the acutely ill. [email or web address] eGFR 94 >=60 mL/min/1.73 m?? [facility] Comment: The eGFR was calculated using the CKD-EP I equation. As with all creatinine based estimates of kidney function, eGFR values calculated with the CKD-EPI equation are not accurate in patients wi th acute kidney failure, extremes of body mass or the acutely ill. [email or web address] CITYnkf Specimen Anatomical Collection Method Collection Time Receive d Time (Source) Location / / Volume Laterality Blood specimen 12/02/2019 4:55 AM 020 5:02 (specimen) EDT AM EDT Resulting Agency Comment Spec In Lab Gretchen Yoon MD CHEMISTRY ORDERABLES Performing Organization Address City/State/ZIP Code Phon e Number [address] (ABNORMAL) Hemogram (12/02/2019 4:55 AM EDT) Analysis Performed At Patho logist Time Signature WBC 9.3 4.0 - 9.5 [facility] LABORATORY RBC 3.71 (L) 4.58 - [place] DOV 5.54 [facility] x10(6)/[facility] LABORATORY Hemoglobin 10.8 (L) 13.7 - [facility] 16.5 gm/dL [facility] Hematocrit 33.1 (L) 40.5 - [facility] 48.5 % [facility] MCV 89.2 82.9 - [facility] 93.1 [facility] LABORATORY MCH 29.1 27.5 - [place] DOV 32.1 pg [facility]ORY MCHC 32.6 32.0 - [place] DOV 35.7 gm/dL [facility] Platelets 93 (L) 145 - 357 [facility] x10(3)/[facility] LABORATORY RDWSD 47.1 (H) 36.0 - [facility] DOV 45.0 [facility] LABORATORY RDWCV 14.6 (H) 11.4 - [facility] DOV 13.8 % [facility] LABORATORY MPV 11.7 7.6 - 12.9 [facility] nRBC % Auto 0.0 % [facility] nRBC Abs Auto 0.000 0.000 - [place] DOV 0.000 [facility] x10(3)/[facility] LABORATORY Specimen Anatomical Collection Method Collection Time Receive d Time (Source) Location / / Volume Laterality Blood specimen 12/02/2019 4:55 AM 020 5:02 (specimen) EDT AM EDT Resulting Agency Comment Spec In Lab Gretchen Yoon MD HEMATOLOGY ORDERABLES Performing Organization Address City/State/[place] [address] Transfuse 1 unit platelets, [...] For questions regarding this report, please contact [facility] number below. ? Electronically signed by: Angel Luis Barboza MD, [facility] ([phone]), at 12/01/2019 8:02 PM Narrative 12/01/2019 8:02 [...] 6:20 PM EDT) athologist Signature Dispensed? Yes [facility] Specimen Anatomical Collection Method Collection Time Receive d Time (Source) Location / / Volume Laterality Blood specimen 12/01/2019 6:20 PM 020 6:18 (specimen) EDT PM EDT Gretchen Yoon MD BLOOD BANK ORDERABLES Performing Organization Address City/State/[place] [address] Duplex for DVT, Arm, Unilat (12/01/2019 5:08 PM EDT) Component Value Ref Test Analysis Performed At [facility] Range Method Time Signature VB Text Department: Vascular Surgery Lab VASCUBASE Report Patient: [id number] (ANGEL LUIS SALINAS) CPT: 85181 ICD10: R60.0 Referring Physician: GRETCHEN YOON ?? [...] For questions regarding this report, please contact [facility] number below. ? Electronically signed by: Merari Collins [facility] ([phone]), at 12/01/2019 3:53 PM Narrative 12/01/2019 3:53 PM EDT EXAMINATION: CT HEAD WO CONTRAST (GENERIC) CLINICAL HISTORY: Headache, intracranial hemorrhage suspected Serial CT scan: please assess for propag ation of known ICH noted on prior Head CT/imaging. TECHNIQUE: CT head performed without intravenous co ntrast administration. COMPARISON: Head CT 11/30/2019. CT angiogram [facility] [place] 11/01. FINDINGS: Ventricles are normal in size. Basal cis terns are patent. Unchanged hyperdense 2.3 x 0.7 x 0.6 cm tubular hemorrhage projecting along the course of the left optic tract (axial se [facility] 2 image 16), consistent with [...] Head CT 11/30/2019. CT angiogram of the [place] 11/01. FINDINGS: Ventricles are normal [...] Scan, Peripheral Blood (12/01/2019 12:51 PM EDT) [facility] Method Time Signature Plat Estimate Decreased [facility] RBC Morphology Normal [facility] Giant Less than 1 /HPF [facility] LABORATORY Specimen Anatomical Collection Method Collection Time Receive d Time (Source) Location / / Volume Laterality Blood specimen 12/01/2019 12:51 0 1:05 (specimen) PM EDT PM EDT Resulting Agency Comment Spec In Lab Riki Stevens MD HEMATOLOGY ORDERABLES Performing Organization Address City/State/[place] [address] (ABNORMAL) Differential, Automated (12/01/2019 12:51 PM EDT) [facility] Method Time Signature Neutrophils % 74.9 % [facility] Neutr Abs (ANC) 6.34 (H) 1.70 - [facility] 6.10 [facility] x10(3)/[facility] LABORATORY Lymphocytes % 11.4 % [facility] Lymphocytes Abs 1.0 0.9 - 3.2 [facility] x10(3)/[facility] LABORATORY Monocytes % 12.4 % [facility] Monocyte Abs 1.0 (H) 0.3 - 0.9 [facility] x10(3)/[facility] LABORATORY Eosinophils % 0.4 % [facility] Eosinophils Abs 0.0 0.0 - 0.4 [facility] x10(3)/[facility] LABORATORY Basophils % 0.4 % [facility] Basophils Abs 0.0 0.0 - 0.1 [facility] x10(3)/[facility] LABORATORY Immature Gran % 0.50 % [facility] Comment: Immature granulocytes(IG's)percentage an d absolute count will include metamyelocytes, myelocytes, and promyelo cytes. Blood smears from CBCs yielding IG's will be scanned manually for concor dance. If this scan disagrees with the automated IG or if promyelocytes are not ed, a manual differential will be performed. Pita Gran Abs 0.04 0.00 - 0.04 x10(3)/[facility] LABORATORY Specimen Anatomical Collection Method Collection Time Receive d Time (Source) Location / / Volume Laterality Blood specimen 12/01/2019 12:51 0 1:05 (specimen) PM EDT PM EDT Resulting Agency Comment Spec In Lab Riki Stevens MD HEMATOLOGY ORDERABLES Performing Organization Address City/State/[place] [address] (ABNORMAL) Hemogram (12/01/2019 12:51 PM EDT) Analysis Performed At Patho logist Time Signature WBC 8.4 4.0 - 9.5 [facility] x10(3)/[facility] LABORATORY RBC 3.69 (L) 4.58 - [facility] 5.54 [facility] x10(6)/[facility] LABORATORY Hemoglobin 10.8 (L) 13.7 - [facility] 16.5 gm/dL [facility] Hematocrit 32.4 (L) 40.5 - [facility] 48.5 % [facility] MCV 87.8 82.9 - [facility] 93.1 fL [facility] MCH 29.3 27.5 - [facility] 32.1 pg [facility] MCHC 33.3 32.0 - [facility] 35.7 gm/dL [facility] Platelets 72 (L) 145 - 357 [facility] x10(3)/[facility] LABORATORY RDWSD 47.2 (H) 36.0 - [facility] 45.0 [facility] LABORATORY RDWCV 14.6 (H) 11.4 - [facility] 13.8 % [facility] LABORATORY MPV 12.2 7.6 - 12.9 [facility] LABORATORY nRBC % Auto 0.0 % [facility] nRBC Abs Auto 0.000 0.000 - [facility] 0.000 [facility] x10(3)/[facility] LABORATORY Specimen Anatomical Collection Method Collection Time Receive d Time (Source) Location / / Volume Laterality Blood specimen 12/01/2019 12:51 0 1:05 (specimen) PM EDT PM EDT Resulting Agency Comment Spec In Lab Riki Stevens MD HEMATOLOGY ORDERABLES Performing Organization Address City/[facility]/ZIP Code Phon e Number [address] (ABNORMAL) Coox2 (12/01/2019 11:42 AM EDT) Analysis Performed At Patho logist Time Signature pO2 Coox 30 mmHg [facility] Hgb Blood Gas 11.6 (L) 13.7 - [facility] 16.5 gm/dL [facility] O2HB Coox 60.8 % [facility] COHB Coox 0.6 % [facility] Comment: Nonsmokers: 0.5-1.5% COHB Smokers: Variable, but usually less than 10% Toxic: 20-30% COHB Lethal: Greater than 60% COHB METHB Coox 0.6 <=1.5 % [facility] Source Coox Mixed Venous [facility] Specimen Anatomical Collection Method Collection Time Receive d Time (Source) Location / / Volume Laterality Blood specimen 12/01/2019 11:42 0 (specimen) AM EDT 11:42 AM EDT Gretchen Yoon MD CHEMISTRY ORDERABLES Performing Organization Address City/[facility]/ZIP Code Phon e Number [address] Sedimentation rate (12/01/2019 3:55 AM EDT) P athologist Signature Sed Rate 25 3 - 46 [facility] mm/hr [facility] Comment: Effective June 11, [...] Winn MD HEMATOLOGY ORDERABLES Performing Organization Address City/[facility]/ZIP Code Phon e Number [address] (ABNORMAL) CRP, acute inflammation (12/01/2019 3:55 AM EDT) P athologist Signature CRP 92.5 (H) <=4.9 mg/L [facility] Specimen Anatomical Collection Method Collection Time Receive d Time (Source) Location / / Volume Laterality Blood specimen Venous Draw / 12/01/2019 3:55 AM 2019 4:06 (specimen) Unknown EDT AM EDT Resulting Agency Comment Spec In Lab Rossy Winn MD CHEMISTRY ORDERABLES Performing Organization Address City/[facility]/ZIP Code Phon e Number [address] ABORH Recheck Status (12/01/2019 3:55 AM EDT) Patholo gist Method Time Signature ABORH Recheck Order Placed [facility] LABORATORY ABORH Type Complete [facility] LABORATORY Specimen Anatomical Collection Method Collection Time Receive d Time (Source) Location / / Volume Laterality Blood specimen 12/01/2019 3:55 AM 020 4:15 (specimen) EDT AM EDT Resulting Agency Comment Spec In Lab Lewis Gee MD BLOOD BANK ORDERABLES Performing Organization Address City/[facility]/ZIP Code Phon e Number [address] Antibody screen (12/01/2019 3:55 AM EDT) Patholo gist Method Time Signature Ab Screen Negative [facility] LABORATORY Expires at 12/04/2019 MELINA MARSHDOV [id number] on: [facility] Specimen Anatomical Collection Method Collection Time Receive d Time (Source) Location / / Volume Laterality Blood specimen 12/01/2019 3:55 AM 020 4:15 (specimen) EDT AM EDT Resulting Agency Comment Spec In Lab Lewis Gee MD BLOOD BANK ORDERABLES Performing Organization Address City/[facility]/[place] [address] ABO/Rh Typing (12/01/2019 3:55 AM EDT) athologist Signature ABORh Type AB Pos [facility] Specimen Anatomical Collection Method Collection Time Receive d Time (Source) Location / / Volume Laterality Blood specimen 12/01/2019 3:55 AM 020 4:15 (specimen) EDT AM EDT Resulting Agency Comment Spec In Lab Lewis Gee MD BLOOD BANK ORDERABLES Performing Organization Address City/[facility] [place] [address] (ABNORMAL) Troponin (12/01/2019 3:55 AM EDT) athologist [facility] Troponin-T 4.35 (H) 0.00 - [facility] 0.00 ng/mL [facility] Comment: result rechecked-slw The 99th percentile for Troponin T is le ss than 0.01 ng/mL, any detectable cTnT concentration using this assay should be considered elevated. According to the third universal definit ion of myocardial infarction the following criteria with a clinical prese ntation consistent with acute myocardial ischemia meets the diagnosis for a myocardial infarction ([place]). Detection of a rise and/or fall of [...] additional sample may be indicated. Reference: Third [place] Definition of Myocardial Infarction. Journal of the [place] [employer] 2012;60:1581-98 Specimen Anatomical Collection Method Collection Time Receive d Time (Source) Location / / Volume Laterality Blood specimen 12/01/2019 3:55 AM 020 4:00 (specimen) EDT AM EDT Resulting Agency Comment Spec In Lab Gretchen Yoon MD CHEMISTRY ORDERABLES Performing Organization Address City/[facility]/ZIP Code Phon e Number [address] Magnesium (12/01/2019 3:55 AM EDT) athologist Signature Magnesium 0.96 0.69 - 1.07 [facility] mmol/L [facility] Specimen Anatomical Collection Method Collection Time Receive d Time (Source) Location / / Volume Laterality Blood specimen 12/01/2019 3:55 AM 020 4:00 (specimen) EDT AM EDT Resulting Agency Comment Spec In Lab Gretchen Yoon MD CHEMISTRY ORDERABLES Performing Organization Address City/[facility]/ZIP [facility] [place] [place] [address] (ABNORMAL) BMP w/fasting Glucose (12/01/2019 3:55 AM EDT) P athologist Signature Glucose 148 (H) 65 - 99 [facility] Fasting mg/dL [facility] Comment: ?Fasting* Glucose Interpretive [...] of Diabetes Mellitus, Position Statement from the [place] [employer]. ??Diabete s Care, Volume 33, Supplement 1, Jul 2009 BUN 11 10 - 20 mg/dL [facility] Creatinine 0.96 0.80 - 1.50 mg/dL [facility] Sodium 132 (L) 135 - 145 mmol/L [facility] Potassium 4.0 3.5 - 5.0 mmol/L [facility] Comment: Please note: ??Patients with WBC >100,00 0 may have falsely elevated Potassium levels. ??For accurate Potassium quantif ication in these patients send serum separator tube (gold top) for subsequent determinations. ??Contact the Clinical Chemistry Laboratory if there are any qu estions. Chloride 105 98 - 107 mmol/L [facility] CO2 17 (L) 22 - 31 mmol/L [facility] Anion Gap 10 5 - 15 mmol/L [facility] Calcium 7.6 (L) 8.5 - 10.5 mg/dL [facility] Estimated GFR 78 >=60 mL/min/1.73 m?? [facility] Comment: The eGFR was calculated using the CKD-EP I equation. As with all creatinine based estimates of kidney function, eGFR values calculated with the CKD-EPI equation are not accurate in patients wi th acute kidney failure, extremes of body mass or the acutely ill. [email or web address] CITYnkf eGFR 91 >=60 mL/min/1.73 m?? [facility] Comment: The eGFR was calculated using the CKD-EP I equation. As with all creatinine based estimates of kidney function, eGFR values calculated with the CKD-EPI equation are not accurate in patients wi th acute kidney failure, extremes of body mass or the acutely ill. [email or web address] CITYnkf Specimen Anatomical Collection Method Collection Time Receive d Time (Source) Location / / Volume Laterality Blood specimen 12/01/2019 3:55 AM 020 4:00 (specimen) EDT AM EDT Resulting Agency Comment Spec In Lab Gretchen Yoon MD CHEMISTRY ORDERABLES Performing Organization Address City/State/[place] [address] (ABNORMAL) Hemogram (12/01/2019 3:55 AM EDT) Analysis Performed At Patho logist Time Signature WBC 11.0 (H) 4.0 - 9.5 [facility] x[facility](3)/[facility] LABORATORY RBC 3.46 (L) 4.58 - [facility] DOV 5.54 [facility] x10(6)/[facility] LABORATORY Hemoglobin 10.2 (L) 13.7 - [facility] 16.5 gm/dL [facility] Hematocrit 31.2 (L) 40.5 - [facility] 48.5 % [facility] MCV 90.2 82.9 - [facility] 93.1 [facility]ATORY MCH 29.5 27.5 - [facility] 32.1 pg [facility] MCHC 32.7 32.0 - [facility] 35.7 gm/dL [facility] Platelets 98 (L) 145 - 357 [facility] x10(3)/[facility] LABORATORY RDWSD 47.9 (H) 36.0 - [facility] 45.0 [facility] LABORATORY RDWCV 14.6 (H) 11.4 - [facility] DOV 13.8 % [facility]ORY MPV 12.3 7.6 - 12.9 [facility] LABORATORY nRBC % Auto 0.0 % [facility] nRBC Abs Auto 0.000 0.000 - [facility] 0.000 [facility] x10(3)/[facility] LABORATORY Specimen Anatomical Collection Method Collection Time Receive d Time (Source) Location / / Volume Laterality Blood specimen 12/01/2019 3:55 AM 020 4:00 (specimen) EDT AM EDT Resulting Agency Comment Spec In Lab Gretchen Yoon MD HEMATOLOGY ORDERABLES Performing Organization Address City/State/[place] [address] (ABNORMAL) BLOOD GAS 2 ARTERIAL (11/30/2019 10:39 PM EDT) Analysis Performed At Patho logist Time Signature pH Art 7.45 7.35 - [facility] 7.45 [facility] pCO2 Art 23 (L) 35 - 45 [facility] mmHg [facility] pO2 Art 76 (L) 85 - 104 [facility] mmHg [facility] HCO3 Art 15.3 (L) 20.0 - [facility] 26.0 [facility] mmol/L [facility] BE Art -8.7 (L) -3.0 - 3.0 [facility] mmol/L [facility] Hgb Blood Gas 11.7 (L) 13.7 - [facility] 16.5 gm/dL [facility] O2HB Art 94.2 94.0 - [facility] 97.0 % [facility] COHB Art 0.5 % [facility] Comment: Nonsmokers: 0.5-1.5% COHB Smokers: Variable, but usually less than 10% Toxic: 20-30% COHB Lethal: Greater than 60% COHB METHB Art 0.6 <=1.5 % [facility] Na Whole Blood 133 (L) 135 - 145 mmol/L [facility] K Whole Blood 3.8 3.5 - 5.0 mmol/L [facility] Comment: Please note: Patients with WBC >100,000 may have falsely elevated Potassium levels. Contact the Clinical Chemistry L aboratory if there are any questions. ICa Whole Blood 1.10 (L) 1.15 - 1.33 mmol/L [facility] Comment: Note: ??Total bilirubin higher than 20 m g/dL may lead to falsely low ionized calcium. CL Whole Blood 109 (H) 98 - 107 mmol/L [facility] Gluc Whole Bld 120 65 - 199 mg/dL [facility] Comment: Diabetes: >=200 mg/dL plus symp toms. Lactate WB 0.8 0.5 - 2.2 mmol/L [facility] FIO2 Art 100 % [facility] PF Ratio Art 76 [facility] Specimen Anatomical Collection Method Collection Time Receive d Time (Source) Location / / Volume Laterality Blood specimen 11/30/2019 10:39 0 (specimen) PM EDT 10:39 PM EDT Gretchen Yoon MD CHEMISTRY ORDERABLES Performing Organization Address City/[facility]/[place] [address] EKG 12 Lead (11/30/2019 [...] (Bezet) Calculated P 12 degrees MUSE SYSTEM Ruby Calculated R 19 degrees MUSE SYSTEM Ruby Calculated T -47 degrees MUSE SYSTEM Ruby INTERPRETATION Sinus rhythm with Premature supraventricular complexes [...] Yoon MD ECG ORDERABLES Performing Organization Address City/[facility]/ZIP Code Phon e Number MUSE SYSTEM (ABNORMAL) Urinalysis Microscopic Exam (11/30/2019 8:40 PM EDT) P athologist Signature RBC UA 27 (H) 0 - 3 /HPF [facility] WBC UA 4 (H) 0 - 3 /HPF [facility] Hyaline Cast 3 (H) 0 - 2 /LPF [facility] LABORATORY Specimen (Source) Anatomical Collection Method Collection Time Re ceived Time Location / / Volume Laterality Urine specimen 11/30/2019 8:40 11/30/2019 obtained via PM EDT 10:51 PM EDT indwelling urinary catheter (specimen) Resulting Agency Comment Spec In Lab Rossy Winn MD URINE ORDERABLES Performing Organization Address City/State/ZIP Code Phon e Number [address] (ABNORMAL) Urinalysis with reflex Culture (11/30/2019 8:40 PM EDT) Patholo gist Method Time Signature Glucose UA Negative Negative [facility] mg/dL [facility] Protein UA Negative Negative [facility] mg/dL [facility] Bilirubin UA Negative Negative [facility] mg/dL [facility] Comment: Clinical correlation required [...] LABORATORY Ketones UA 40 (A) Negative mg/dL [facility] Nitrite UA Negative Negative [facility] Leukocytes UA Trace (A) Negative [facility] LABORATORY Appearance UA Clear Clear [facility] Spec [place] UA 1.026 1.006 - 1.030 [facility] Color UA Yellow Yellow [facility] Culture Reflexed No [facility] Specimen (Source) Anatomical Collection Method Collection Time Re ceived Time Location / / Volume Laterality Urine specimen 11/30/2019 8:40 11/30/2019 obtained via PM EDT 10:51 PM EDT indwelling urinary catheter (specimen) Resulting Agency Comment Spec In Lab Gretchen Yoon MD URINE ORDERABLES Performing Organization Address City/[facility]/ZIP Code Phon e Number [address] (ABNORMAL) pro-Brain Natriuretic Peptide (11/30/2019 8:30 PM EDT) athologist Signature ProBNP 2,802 (H) <=125 [facility]/mL [facility] Specimen Anatomical Collection Method Collection Time Receive d Time (Source) Location / / Volume Laterality Blood specimen Venous Draw / 11/30/2019 8:30 PM 2019 8:36 (specimen) Unknown EDT PM EDT Resulting Agency Comment Spec In Lab Rossy Winn MD CHEMISTRY ORDERABLES Performing Organization Address City/[facility]/ZIP Code [place] [address] (ABNORMAL) Troponin (11/30/2019 8:30 PM EDT) P athologist Signature Troponin-T 5.04 (H) 0.00 - MELINA MONAE 0.00 ng/mL [facility] Comment: The 99th percentile for Troponin T is le ss than 0.01 ng/mL, any detectable cTnT concentration using this assay should be considered elevated. According to the third universal definit ion of myocardial infarction the following criteria with a clinical prese ntation consistent with acute myocardial ischemia meets the diagnosis for a myocardial infarction ([place]). Detection of a rise and/or fall of [...] additional sample may be indicated. Reference: Third Cheswick Definition of Myocardial Infarction. Journal of the [place] [employer] 2012;60:1581-98 Specimen Anatomical Collection Method Collection Time Receive d Time (Source) Location / / Volume Laterality Blood specimen Venous Draw / 11/30/2019 8:30 PM 2019 8:36 (specimen) Unknown EDT PM EDT Resulting Agency Comment Spec In Lab Rossy Winn MD CHEMISTRY ORDERABLES Performing Organization Address City/State/[place] [address] [facility] [address] Magnesium (11/30/2019 8:30 PM EDT) athologist Signature Magnesium 0.79 0.69 - 1.07 [facility] mmol/L [facility] Specimen Anatomical Collection Method Collection Time Receive d Time (Source) Location / / Volume Laterality Blood specimen 11/30/2019 8:30 PM 020 8:35 (specimen) EDT PM EDT Resulting Agency Comment Spec In Lab Gretchen Yoon MD CHEMISTRY ORDERABLES Performing Organization Address City/State/ZIP Code Phon e Number [address] (ABNORMAL) Basic Metabolic Panel (non-fasting) (11/30/2019 8:30 PM EDT) athologist Signature Glucose Lvl 132 65 - 199 [facility] mg/dL [facility] Comment: Diabetes: >=200 mg/dL plus symp toms BUN 12 10 - 20 mg/dL [facility] Creatinine 0.94 0.80 - 1.50 mg/dL [facility] Sodium 136 135 - 145 mmol/L [facility] Potassium 3.9 3.5 - 5.0 mmol/L [facility] Comment: Please note: ??Patients with WBC >100,00 0 may have falsely elevated Potassium levels. ??For accurate Potassium quantif ication in these patients send serum separator tube (gold top) for subsequent determinations. ??Contact the Clinical Chemistry Laboratory if there are any qu estions. Chloride 108 (H) 98 - 107 mmol/L [facility] CO2 17 (L) 22 - 31 mmol/L [facility] Anion Gap 11 5 - 15 mmol/L [facility] Calcium 7.9 (L) 8.5 - 10.5 mg/dL [facility] Estimated GFR 80 >=60 mL/min/1.73 m?? [facility] Comment: The eGFR was calculated using the CKD-EP I equation. As with all creatinine based estimates of kidney function, eGFR values calculated with the CKD-EPI equation are not accurate in patients wi th acute kidney failure, extremes of body mass or the acutely ill. [email or web address]nkf eGFR 93 >=60 mL/min/1.73 m?? [facility] Comment: The eGFR was calculated using the CKD-EP I equation. As with all creatinine based estimates of kidney function, eGFR values calculated with the CKD-EPI equation are not accurate in patients wi th acute kidney failure, extremes of body mass or the acutely ill. [email or web address]nkf Specimen Anatomical Collection Method Collection Time Receive d Time (Source) Location / / Volume Laterality Blood specimen 11/30/2019 8:30 PM 020 8:35 (specimen) EDT PM EDT Resulting Agency Comment Spec In Lab Gretchen Yoon MD CHEMISTRY ORDERABLES Performing Organization Address [facility]/ZIP [facility] [place] [place] Phon e Number [address] Blood culture (11/30/2019 8:30 PM EDT) Patholo gist Method Time Signature Blood Culture No growth MELINA MONAE at 5 days. [facility] Specimen Anatomical Collection Method Collection Time Receive d Time (Source) Location / / Volume Laterality Blood specimen 11/30/2019 8:30 PM 020 9:40 (specimen) EDT PM EDT Comment: L HAND Resulting Agency Comment Spec In Lab Gretchen Yoon MD MICROBIOLOGY - BLOOD ORDERAB LES Performing Organization Address City/[facility] Code Phon e Number [address] Blood culture (11/30/2019 8:30 PM EDT) Patholo gist Method Time Signature Blood Culture No growth MELINA WHITTENCOCK at 5 days. [facility] Specimen Anatomical Collection Method Collection Time Receive d Time (Source) Location / / Volume Laterality Blood specimen 11/30/2019 8:30 PM 020 9:40 (specimen) EDT PM EDT Comment: R HAND Resulting Agency Comment Spec In Lab Gretchen Yoon MD MICROBIOLOGY - BLOOD ORDERAB LES Performing Organization Address City/State/ZIP Code Phon e Number [place] [phone] XR Chest One View [...] number below. Electronically signed by: Latoya Sims [facility] ([phone]), at 11/30/2019 8:32 PM Gretchen Yoon MD IMG DX ORDERABLES (ABNORMAL) BLOOD GAS 2 ARTERIAL (11/30/2019 8:09 PM EDT) Analysis Performed At Patho logist Time Signature pH Art 7.45 7.35 - [facility] 7.45 [facility] pCO2 Art 27 (L) 35 - 45 [facility] mmHg [facility] pO2 Art 68 (L) 85 - 104 [facility] mmHg [facility] HCO3 Art 18.2 (L) 20.0 - [facility] 26.0 [facility] mmol/L HOSPITAL LABORATORY BE Art -5.9 (L) -3.0 - 3.0 [facility] mmol/L [facility] Hgb Blood Gas 12.4 (L) 13.7 - [facility] 16.5 gm/dL [facility] O2HB Art 93.1 (L) 94.0 - [facility] 97.0 % [facility] COHB Art 0.8 % [facility] Comment: Nonsmokers: 0.5-1.5% COHB Smokers: Variable, but usually less than 10% Toxic: 20-30% COHB Lethal: Greater than 60% COHB METHB Art 0.4 <=1.5 % [facility] Na Whole Blood 133 (L) 135 - 145 mmol/L [facility] K Whole Blood 3.6 3.5 - 5.0 mmol/L [facility] Comment: Please note: Patients with WBC >100,000 may have falsely elevated Potassium levels. Contact the Clinical Chemistry L aboratory if there are any questions. ICa Whole Blood 1.13 (L) 1.15 - 1.33 mmol/L [facility] Comment: Note: ??Total bilirubin higher than 20 m g/dL may lead to falsely low ionized calcium. CL Whole Blood 108 (H) 98 - 107 mmol/L [facility] Gluc Whole Bld 121 65 [...] Organization Address City/State/[place] [address] Angiogram [place] (11/30/2019 4:36 PM EDT) Anatomical [...] CT HEAD WO CONTRAST (GENERIC), CT ANGIOGRAM [place] CLINICAL HISTORY: Headache, intracranial hemorrhage suspected F/U on known ICH - assessing for propaga tion TECHNIQUE: CT head performed without intravenous co ntrast administration. CT angiogram [place] 65 cc Omnipaque 350 administered [...] HEAD WO CONTRAST (GENERI C), CT ANGIOGRAM [place] CLINICAL HISTORY: Headache, intracranial hemorrhage suspected F/U on known ICH - assessing for propaga tion TECHNIQUE: CT head performed without intravenous co ntrast administration. CT angiogram [place] 65 cc Omnipaque 350 administered [...] CT HEAD WO CONTRAST (GENERIC), CT ANGIOGRAM [place] CLINICAL HISTORY: Headache, intracranial hemorrhage suspected F/U on known ICH - assessing for propaga tion TECHNIQUE: CT head performed without intravenous co ntrast administration. CT angiogram [place] 65 cc Omnipaque 350 administered [...] HEAD WO CONTRAST (GENERI C), CT ANGIOGRAM [place] CLINICAL HISTORY: Headache, intracranial hemorrhage suspected F/U on known ICH - assessing for propaga tion TECHNIQUE: CT head performed without intravenous co ntrast administration. CT angiogram [place] 65 cc Omnipaque 350 administered [...] Electronically signed by: Angel Luis Barboza MD, [facility] ([phone]), at 11/30/2019 5:04 PM Gretchen Yoon MD [...] 453 ms MUSE SYSTEM (Bezet) Calculated P Ruby 52 degrees MUSE SYSTEM Calculated R Ruby 5 degrees MUSE SYSTEM Calculated T Ruby -60 degrees MUSE SYSTEM INTERPRETATION Sinus rhythm [...] [place]an ? (Age): 1945(74y) Med Rec#: ? [id number] ?Sex: ?M ? Site Loc: ? [facility] ?Ht / Wt: ??178(cm)/64(kg) Pt. Loc: ?CCU ? BSA: ?1.8 Study Date: ?? 11/30/2019 ?Pt. Type: Inpatient Tape: ? Referring: LAHEYMICHAELJ Reading: Tello Mejia ([id number]) Marketing Teacher: Eve Lolita Diagnosis: *ST elevation (STEMI) myocardial [...] Vmax ?0.58 ? m/sec ? MV deceleration bdit853.05 ? m sec ? MV A-wave Vmax [...] ? Mid-Inferior ?Akinetic ? Mid-Inferoseptal ?Normal ? Dow[place]-Septal ? Normal ? [place]-Anterior ? Normal ? [place]-Lateral ?Normal ? [place]-Inferior ? Hypokinetic ? [place]-Tip ?Normal ? This report has been electronically sign ed by: _ Tello Mejia MD ? 11/30/2019 12: 45:27 Images reviewed and interpretation [facility] Cardiac Ultrasound Laboratory Procedure Note Tello Mejia MD - 11/30/2019Formatti ng of this note might be different from the original. Procedure: Transthoracic Echocardiogram Patient: RITA ACOSTA(Age): [birth year](74y) Med Rec#: [id number] Sex: M Site Loc: [facility] Ht / Wt: 178(cm)/64(kg) Pt. Loc: CCU BSA: 1.8 Study Date: 11/30/2019 Pt. Type: Inpatie nt Tape: Referring: GILMER Reading: Tello Mejia ([id number]) Marketing Teacher: vEe Lolita Diagnosis: *ST elevation (STEMI) myocardial infarc [...] MV E-wave Vmax 0.58 m/sec MV deceleration hgjx167.05 msec MV A-wave Vmax 0.74 m/sec MV [...] Hypokinetic Mid-Posterolateral Hypokinetic Mid-Inferior Akinetic Mid-Inferoseptal Normal Dow[place]-Septal Normal [place]-Anterior Normal Dow[place]-Lateral Normal Dow[place]-Inferior Hypokinetic Dow[place]-Tip Normal This report has been electronically sign ed by: _ Tello Mejia MD 11/30/2019 12:45:27 Images reviewed and interpretation [facility] Cardiac [facility] Laboratory Gretchen Yoon [...] For questions regarding this report, please contact [facility] number below. ? Electronically signed by: Angel Luis Barboza MD, [facility] ([phone]), at 11/30/2019 12:04 PM Narrative 11/30/2019 12:04 [...] athologist Signature Magnesium 0.88 0.69 - 1.07 [facility]/L [facility] Specimen Anatomical Collection Method Collection Time Receive d Time (Source) Location / / Volume Laterality Blood specimen Venous Draw / 11/30/2019 8:30 AM 2019 8:37 (specimen) Unknown EDT AM EDT Resulting Agency Comment Spec In Lab Rossy Winn MD CHEMISTRY ORDERABLES Performing Organization Address City/State/[place] [address] (ABNORMAL) CK (11/30/2019 8:30 AM EDT) athologist Signature CK, Total 1,645 (H) 0 - 200 [facility] unit/L [facility] Specimen Anatomical Collection Method Collection Time Receive d Time (Source) Location / / Volume Laterality Blood specimen 11/30/2019 8:30 AM 020 8:32 (specimen) EDT AM EDT Resulting Agency Comment Spec In Lab Gretchen Yoon MD CHEMISTRY ORDERABLES Performing Organization Address City/[facility]/[place] [address] (ABNORMAL) Troponin (11/30/2019 8:30 AM EDT) P athologist Signature Troponin-T 8.04 (H) 0.00 - MELINA MONAE 0.00 ng/mL [facility] Comment: result rechecked-rancho The 99th percentile for Troponin T is le ss than 0.01 ng/mL, any detectable cTnT concentration using this assay should be considered elevated. According to the third universal definit ion of myocardial infarction the following criteria with a clinical prese ntation consistent with acute myocardial ischemia meets the diagnosis for a myocardial infarction ([place]). Detection of a rise and/or fall of [...] additional sample may be indicated. Reference: Third Cheswick Definition of Myocardial Infarction. Journal of the [place] [employer]iology 2012;60:1581-98 Specimen Anatomical Collection Method Collection Time Receive d Time (Source) Location / / Volume Laterality Blood specimen 11/30/2019 8:30 AM 020 8:32 (specimen) EDT AM EDT Resulting Agency Comment Spec In Lab Gretchen Yoon MD CHEMISTRY ORDERABLES Performing Organization Address City/State/ZIP Code Phon e Number [facility] [place] [address] EKG 12 Lead (11/30/2019 7:57 AM EDT) Component Value Ref Range Test Analysis Performed Pathologis t Method Time At Signature Ventricular rate 64 BPM MUSE SYSTEM Atrial Rate 64 BPM MUSE SYSTEM P-R Interval 132 ms MUSE SYSTEM QRS Duration 78 ms MUSE SYSTEM Q-T Interval 420 ms MUSE SYSTEM QTC Calculated 433 ms MUSE SYSTEM (Bezet) Calculated P Ruby 28 degrees MUSE SYSTEM Calculated R Ruby 7 degrees MUSE SYSTEM Calculated T Ruby -33 degrees MUSE SYSTEM INTERPRETATION Sinus rhythm [...] [facility] Fasting mg/dL [facility] Comment: ?Fasting* Glucose Interpretive [...] of Diabetes Mellitus, Position Statement from the [place] [employer]. ??Diabete s Care, Volume 33, Supplement 1, Jul 2009 BUN 13 10 - 20 mg/dL [facility] Creatinine 0.90 0.80 - 1.50 mg/dL [facility] Sodium 135 135 - 145 mmol/L [facility] Potassium 3.9 3.5 - 5.0 mmol/L [facility] Comment: Please note: ??Patients with WBC >100,00 0 may have falsely elevated Potassium levels. ??For accurate Potassium quantif ication in these patients send serum separator tube (gold top) for subsequent determinations. ??Contact the Clinical Chemistry Laboratory if there are any qu estions. Chloride 108 (H) 98 - 107 mmol/L [facility] CO2 16 (L) 22 - 31 mmol/L [facility] Anion Gap 11 5 - 15 mmol/L [facility] Calcium 7.5 (L) 8.5 - 10.5 mg/dL [facility] Estimated GFR 84 >=60 mL/min/1.73 m?? [facility] Comment: The eGFR was calculated using the CKD-EP I equation. As with all creatinine based estimates of kidney function, eGFR values calculated with the CKD-EPI equation are not accurate in patients wi th acute kidney failure, extremes of body mass or the acutely ill. [email or web address]nkf eGFR 98 >=60 mL/min/1.73 m?? [facility] Comment: The eGFR was calculated using the CKD-EP I equation. As with all creatinine based estimates of kidney function, eGFR values calculated with the CKD-EPI equation are not accurate in patients wi th acute kidney failure, extremes of body mass or the acutely ill. [email or web address]://Availendar/[facility]nk[facility] Specimen Anatomical Collection Method Collection Time Receive d Time (Source) Location / / Volume Laterality Blood specimen 11/30/2019 2:15 AM 020 2:29 (specimen) EDT AM EDT Resulting Agency Comment Spec In Lab Gretchen Yoon MD CHEMISTRY ORDERABLES Performing Organization Address City/State/[place] [address] (ABNORMAL) Hemogram (11/30/2019 2:15 AM EDT) Analysis Performed At Patho logist Time Signature WBC 11.2 (H) 4.0 - 9.5 [facility] x10(3)/[facility] LABORATORY RBC 3.83 (L) 4.58 - [facility] 5.54 [facility] x10(6)/[facility] LABORATORY Hemoglobin 11.4 (L) 13.7 - MELINA DOV 16.5 gm/dL [facility] Hematocrit 35.2 (L) 40.5 - MELINA WHITTENCOCK 48.5 % [facility] MCV 91.9 82.9 - MELINA MARSHDOV 93.1 [facility] LABORATORY MCH 29.8 27.5 - MELINA MARSHDOV 32.1 pg [facility] MCHC 32.4 32.0 - MELINA MARSHDOV 35.7 gm/dL [facility] Platelets 122 (L) 145 - 357 MELINA DOV x10(3)/[facility] LABORATORY RDWSD 49.8 (H) 36.0 - MELINA MARSHDOV 45.0 [facility] LABORATORY RDWCV 14.8 (H) 11.4 - MELINA DOV 13.8 % [facility] MPV 12.1 7.6 - 12.9 [facility] LABORATORY nRBC % Auto 0.0 % [facility] nRBC Abs Auto 0.000 0.000 - MELINA DOV 0.000 [facility] x10(3)/[facility] LABORATORY Specimen Anatomical Collection Method Collection Time Receive d Time (Source) Location / / Volume Laterality Blood specimen 11/30/2019 2:15 AM 020 2:29 (specimen) EDT AM EDT Resulting Agency Comment Spec In Lab Gretchen Yoon MD HEMATOLOGY ORDERABLES Performing Organization Address City/[facility]/ZIP Code Phon e Number [address] (ABNORMAL) CK (11/30/2019 2:15 AM EDT) athologist Signature CK, Total 1,969 (H) 0 - 200 [facility] DOV unit/L [facility] Specimen Anatomical Collection Method Collection Time Receive d Time (Source) Location / / Volume Laterality Blood specimen 11/30/2019 2:15 AM 020 2:29 (specimen) EDT AM EDT Resulting Agency Comment Spec In Lab Gretchen Yoon MD CHEMISTRY ORDERABLES Performing Organization Address City/State/ZIP Code Phon e Number [address] (ABNORMAL) Troponin (11/30/2019 2:15 AM EDT) athologist Signature Troponin-T 11.73 (H) 0.00 - MELINA MONAE 0.00 ng/mL [facility] Comment: result rechecked-slw The 99th percentile for Troponin T is le ss than 0.01 ng/mL, any detectable cTnT concentration using this assay should be considered elevated. According to the third universal definit ion of myocardial infarction the following criteria with a clinical prese ntation consistent with acute myocardial ischemia meets the diagnosis for a myocardial infarction ([place]). Detection of a rise and/or fall of [...] additional sample may be indicated. Reference: Third Cheswick Definition of Myocardial Infarction. Journal of the [place] College [employer]iology 2012;60:1581-98 result rechecked- The 99th percentile for Troponin T is le ss than 0.01 ng/mL, any detectable cTnT concentration using this assay should be considered elevated. According to the third universal definit ion of myocardial infarction the following criteria with a clinical prese ntation consistent with acute myocardial ischemia meets the diagnosis for a myocardial infarction ([place]). Detection of a rise and/or fall of [...] additional sample may be indicated. Reference: Third Cheswick Definition of Myocardial Infarction. Journal of the [place] College [employer]iology 2012;60:1581-98 Corrected from 11.73 ng/ml [HI] on 11/29 3:11:51 EDT by Debi Hawley Specimen Anatomical Collection Method Collection Time Receive d Time (Source) Location / / Volume Laterality Blood specimen 11/30/2019 2:15 AM 020 2:29 (specimen) EDT AM EDT Resulting Agency Comment Spec In Lab Gretchen Yoon MD CHEMISTRY ORDERABLES Performing Organization Address City/[facility]/[place] [address] LDL Cholesterol, Direct (11/30/2019 2:15 AM EDT) P athologist Signature LDL Chol 156 mg/dL [facility] LABORATORY Comment: Lowest Risk: <100 mg/dL Lower Risk: 100-129 mg/dL Borderline High Risk: 130-159 mg/dL High Risk: 160-189 mg/dL Very High Risk: >ko=606 mg/dL Specimen Anatomical Collection Method Collection Time Receive d Time (Source) Location / / Volume Laterality Blood specimen 11/30/2019 2:15 AM 020 2:29 (specimen) EDT AM EDT Resulting Agency Comment Spec In Lab Gretchen Yoon MD CHEMISTRY ORDERABLES Performing Organization Address City/[facility]/[place] [address] (ABNORMAL) Hemoglobin A1c (11/30/2019 [...] Mellitus, Diabetes Care 2013; 36: Suppl. 1, S67-04 Est Avg Gluc See note mg/dL MELINA MONAE [facility] Comment: Estimated Average Glucose [...] with hemoglobinopathies. Additional resources are available on [facility] ADA website. Kiko CARBAJAL, Jenn J, Silas R, et al. ??Tr anslating the A1C assay into estimated average glucose values. ??Diabetes Care 2008:31(8):6050-1053. Specimen Anatomical Collection Method Collection Time Receive d Time (Source) Location / / Volume Laterality Blood specimen 11/30/2019 2:15 AM 020 2:29 (specimen) EDT AM EDT Resulting Agency Comment Spec In Lab Gretchen Yoon MD CHEMISTRY ORDERABLES Performing Organization Address City/State/[place] [address] Lipid Panel (Reflex Direct LDL) (11/30/2019 2:15 AM EDT) P athologist Signature Chol, Total 195 mg/dL [facility] Comment: Lower Risk: <200 mg/dL Average Risk: 200-239 mg/dL Higher Risk: >rv=382 mg/dL Triglycerides 93 mg/dL [facility] Comment: Average Risk/Lower Risk: <150 mg/dL Borderline High Risk: 150-199 mg/dL High Risk: 200-499 mg/dL Very High Risk: >qv=896 mg/dL HDL 32 mg/dL [facility] Comment: Males: ?? Higher Risk: <40 mg/dL Females: ?? HIgher Risk: <50 mg/dL LDL Cholesterol 144 mg/dL [facility] Comment: Lowest Risk: <100 mg/dL Lower Risk: 100-129 mg/dL Borderline High Risk: 130-159 mg/dL High Risk: 160-189 mg/dL Very High Risk: >ao=157 mg/dL Chol/HDL Ratio 6.1 ratio [facility] Lipid Interpretation See Note [facility] Comment: Lipid management should be guided by a p atient? s ASCVD risk, goals and preferences. ACC/AHA Guidelines recommend high intens ity statin if clinical ASCVD or LDL greater than or equal to 190 mg/dL. http://[email or web address]Gennio/GBG-UIV-Nwzvesahm Adults aged 40-75 with LDL 70-189 mg/dL should have their 10 year ASCVD risk estimated with the ACC/AHA ASCVD risk es timator http://tools.acc.org/HCHAB-Skox-Kayxvzce r/ Statin should be discussed if risk [...] Organization Address City/State/ZIP Code Phon e Number [address] (ABNORMAL) CK (11/29/2019 6:35 PM EDT) athologist Signature CK, Total 2,780 (H) 0 - 200 [facility] unit/L [facility] Specimen Anatomical Collection Method Collection Time Receive d Time (Source) Location / / Volume Laterality Blood specimen 11/29/2019 6:35 PM 020 6:53 (specimen) EDT PM EDT Resulting Agency Comment Spec In Lab Gretchen Yoon MD CHEMISTRY ORDERABLES Performing Organization Address City/[facility] [facility]/[place] [address] (ABNORMAL) Troponin (11/29/2019 6:35 PM EDT) athologist Signature Troponin-T 17.60 (H) 0.00 - [facility] 0.00 ng/mL [facility] LABORATORY Comment: result rechecked-az The 99th percentile for Troponin T is le ss than 0.01 ng/mL, any detectable cTnT concentration using this assay should be considered elevated. According to the third universal definit ion of myocardial infarction the following criteria with a clinical prese ntation consistent with acute myocardial ischemia meets the diagnosis for a myocardial infarction ([place]). Detection of a rise and/or fall of [...] additional sample may be indicated. Reference: Third Cheswick Definition of Myocardial Infarction. Journal of the [place] [employer] 2012;60:1581-98 Specimen Anatomical Collection Method Collection Time Receive d Time (Source) Location / / Volume Laterality Blood specimen 11/29/2019 6:35 PM 020 6:53 (specimen) EDT PM EDT Resulting Agency Comment Spec In Lab Gretchen Yoon MD CHEMISTRY ORDERABLES Performing Organization Address City/State/[place] [address] EKG 12 Lead (11/29/2019 3:58 PM EDT) [facility] gist Method Time Signature Ventricular rate 73 BPM MUSE SYSTEM Atrial Rate 73 BPM MUSE SYSTEM P-R Interval 152 ms MUSE SYSTEM QRS Duration 84 ms MUSE SYSTEM Q-T Interval 404 ms MUSE SYSTEM QTC Calculated 445 ms MUSE SYSTEM (Bezet) Calculated P Ruby 50 degrees MUSE SYSTEM Calculated R Ruby -4 degrees MUSE SYSTEM Calculated T Ruby 19 degrees MUSE SYSTEM INTERPRETATION Sinus rhythm [...] lung apex is excluded from the imaged [id number]. IMPRESSION: 1. ??New right internal jugular pulmonar [...] ? Electronically signed by: Devin Solis [facility] ([phone]), at 11/29/2019 4:36 PM Impressions 11/29/2019 4:36 [...] ? Electronically signed by: Devin Solis [facility] ([phone]), at 11/29/2019 4:36 PM Narrative 11/29/2019 4:36 [...] lung apex is excluded from the imaged [id number]. Procedure Note Estefani Harris MD - 11/29/2019Formattin [...] lung apex is excluded from the imaged [id number]. IMPRESSION 1. New right internal jugular pulmonary [...] below. Electronically signed by: Devin Solis [facility] ([phone]), at 11/29/2019 4:36 PM Juventino Concepcion MD IMG DX ORDERABLES (ABNORMAL) Differential, Automated (11/29/2019 2:32 PM EDT) [facility] Method Time Signature Neutrophils % 83.8 % [facility] Neutr Abs (ANC) 12.12 (H) 1.70 - [facility] 6.10 [facility] x10(3)/[facility] LABORATORY Lymphocytes % 9.1 % [facility] Lymphocytes Abs 1.3 0.9 - 3.2 [facility] x10(3)/[facility] LABORATORY Monocytes % 6.2 % [facility] Monocyte Abs 0.9 0.3 - 0.9 [facility] x10(3)/[facility] LABORATORY Eosinophils % 0.0 % [facility] Eosinophils Abs 0.0 0.0 - 0.4 [facility] x10(3)/[facility] LABORATORY Basophils % 0.3 % [facility] Basophils Abs 0.0 0.0 - 0.1 [facility] x10(3)/[facility] LABORATORY Immature Gran % 0.60 % [facility] Comment: Immature granulocytes(IG's)percentage an d absolute count will include metamyelocytes, myelocytes, and promyelo cytes. Blood smears from CBCs yielding IG's will be scanned manually for concmoises dandirk. If this scan disagrees with the automated IG or if promyelocytes are not ed, a manual differential will be performed. Pita Gran Abs 0.08 (H) 0.00 - 0.04 x10(3)/[facility] LABORATORY Specimen Anatomical Collection Method Collection Time Receive d Time (Source) Location / / Volume Laterality Blood specimen 11/29/2019 2:32 PM 020 2:55 (specimen) EDT PM EDT Resulting Agency Comment Spec In Lab Darrell Glasgow MD HEMATOLOGY ORDERABLES Performing Organization Address City/State/[place] [address] (ABNORMAL) Hemogram (11/29/2019 2:32 PM EDT) Analysis Performed At Patho logist Time Signature WBC 14.5 (H) 4.0 - 9.5 [facility] x10(3)/[facility] LABORATORY RBC 4.53 (L) 4.58 - [facility] 5.54 [facility] x10(6)/[facility] LABORATORY Hemoglobin 13.1 (L) 13.7 - [facility] 16.5 gm/dL [facility] LABORATORY Hematocrit 40.8 40.5 - [facility] 48.5 % [facility] MCV 90.1 82.9 - [facility] 93.1 [facility] LABORATORY MCH 28.9 27.5 - [facility] DOV 32.1 pg [facility]ORATORY MCHC 32.1 32.0 - [facility] 35.7 gm/dL [facility] Platelets 184 145 - 357 [facility] x10(3)/[facility] LABORATORY RDWSD 47.8 (H) 36.0 - [facility] 45.0 [facility] LABORATORY RDWCV 14.5 (H) 11.4 - [facility] DOV 13.8 % [facility] LABORATORY MPV 11.9 7.6 - 12.9 [facility] LABORATORY nRBC % Auto 0.0 % [facility] nRBC Abs Auto 0.000 0.000 - [facility] 0.000 [facility] x10(3)/[facility] LABORATORY Specimen Anatomical Collection Method Collection Time Receive d Time (Source) Location / / Volume Laterality Blood specimen 11/29/2019 2:32 PM 020 2:55 (specimen) EDT PM EDT Resulting Agency Comment Spec In Lab Darrell Glasgow MD HEMATOLOGY ORDERABLES Performing Organization Address City/[facility]/ZIP Code Phon e Number [address] (ABNORMAL) CK (11/29/2019 2:32 PM EDT) athologist Signature CK, Total 3,282 (H) 0 - 200 [facility] unit/[facility] LABORATORY Specimen Anatomical Collection Method Collection Time Receive d Time (Source) Location / / Volume Laterality Blood specimen 11/29/2019 2:32 PM 020 2:32 (specimen) EDT PM EDT Resulting Agency Comment Spec In Lab Gretchen Yoon MD CHEMISTRY ORDERABLES Performing Organization Address City/[facility]/[place] [address] (ABNORMAL) Troponin (11/29/2019 2:32 PM EDT) athologist Signature Troponin-T 20.33 (H) 0.00 - [facility] 0.00 ng/mL [facility] Comment: The 99th percentile for Troponin T is le ss than 0.01 ng/mL, any detectable cTnT concentration using this assay should be considered elevated. According to the third universal definit ion of myocardial infarction the following criteria with a clinical prese ntation consistent with acute myocardial ischemia meets the diagnosis for a myocardial infarction ([place]). Detection of a rise and/or fall of [...] additional sample may be indicated. Reference: Third Cheswick Definition of Myocardial Infarction. Journal of the [place] [employer]iology 2012;60:1581-98 Specimen Anatomical Collection Method Collection Time Receive d Time (Source) Location / / Volume Laterality Blood specimen 11/29/2019 2:32 PM 020 2:32 (specimen) EDT PM EDT Resulting Agency Comment Spec In Lab Gretchen Yoon MD CHEMISTRY ORDERABLES Performing Organization Address City/[facility] [place] [address] (ABNORMAL) APTT (11/29/2019 2:32 PM EDT) athologist Signature PTT 114 25 - 37 [facility] (Critical) [facility] LABORATORY Comment: Critical Result called by ?? [...] Yoon MD HEMATOLOGY ORDERABLES Performing Organization Address City/[facility] [place] [address] (ABNORMAL) Prothrombin Time (11/29/2019 2:32 PM EDT) P athologist Signature PT 13.5 (H) 9.4 - 12.5 [facility] LABORATORY INR 1.2 [facility] Comment: An INR <2.0 indicates [...] Yoon MD HEMATOLOGY ORDERABLES Performing Organization Address City/[facility]/[place] [address] (ABNORMAL) Hepatic Function Panel (11/29/2019 2:32 PM EDT) P athologist Signature Total Protein 6.3 6.1 - 8.0 [facility] DOV gm/dL [facility]ORATORY Albumin 3.6 3.2 - 5.2 [facility] DOV gm/dL [facility]ORAT[facility] AST 257 (H) 0 - 39 [facility] DOV unit/L [facility] ALT 50 0 - 55 [facility] DOV unit/L [facility] Alk Phos 84 40 - 130 [facility] DOV unit/L [facility] Total 0.3 0.2 - 1.3 [facility] Bilirubin mg/dL [facility] LABORATORY Bili, Direct 0.1 0.0 - 0.3 [facility] DOV mg/dL [facility] LABORATORY Specimen Anatomical Collection Method Collection Time Receive d Time (Source) Location / / Volume Laterality Blood specimen 11/29/2019 2:32 PM 020 2:32 (specimen) EDT PM EDT Resulting Agency Comment Spec In Lab Gretchen Yoon MD CHEMISTRY ORDERABLES Performing Organization Address City/[facility]/[place] [address] (ABNORMAL) pro-Brain Natriuretic Peptide (11/29/2019 2:32 PM EDT) P athologist Signature ProBNP 272 (H) <=125 pg/mL [facility] Specimen Anatomical Collection Method Collection Time Receive d Time (Source) Location / / Volume Laterality Blood specimen 11/29/2019 2:32 PM 020 2:32 (specimen) EDT PM EDT Resulting Agency Comment Spec In Lab Gretchen Yoon MD CHEMISTRY ORDERABLES Performing Organization Address City/[facility]/ZIP Code Phon e Number [address] Magnesium (11/29/2019 2:32 PM EDT) athologist Signature Magnesium 0.76 0.69 - 1.07 [facility] mmol/L [facility] LABORATORY Specimen Anatomical Collection Method Collection Time Receive d Time (Source) Location / / Volume Laterality Blood specimen 11/29/2019 2:32 PM 020 2:32 (specimen) EDT PM EDT Resulting Agency Comment Spec In Lab Gretchen Yoon MD CHEMISTRY ORDERABLES Performing Organization Address City/[facility] Phon e Number [address] (ABNORMAL) Basic Metabolic Panel (non-fasting) (11/29/2019 2:32 PM EDT) athologist Signature Glucose Lvl 149 65 - 199 [facility] mg/dL [facility] LABORATORY Comment: Diabetes: >=200 mg/dL plus symp toms BUN 16 10 - 20 mg/dL [facility] LABORATORY Creatinine 0.94 0.80 - 1.50 mg/dL [facility] LABORATORY Sodium 135 135 - 145 mmol/L [facility] LABORATORY Potassium 4.5 3.5 - 5.0 mmol/L [facility] LAB[facility] Comment: Please note: ??Patients with WBC >100,00 0 may have falsely elevated Potassium levels. ??For accurate Potassium quantif ication in these patients send serum separator tube (gold top) for subsequent determinations. ??Contact the Clinical Chemistry Laboratory if there are any qu estions. Chloride 105 98 - 107 mmol/L [facility] CO2 15 (L) 22 - 31 mmol/L [facility] Anion Gap 15 5 - 15 mmol/L [facility] LABORATORY Calcium 8.0 (L) 8.5 - 10.5 mg/dL [facility] Estimated GFR 80 >=60 mL/min/1.73 m?? [facility] Comment: The eGFR was calculated using the CKD-EP I equation. As with all creatinine based estimates of kidney function, eGFR values calculated with the CKD-EPI equation are not accurate in patients wi th acute kidney failure, extremes of body mass or the acutely ill. [email or web address] eGFR 93 >=60 mL/min/1.73 m?? [facility] Comment: The eGFR was calculated using the CKD-EP I equation. As with all creatinine based estimates of kidney function, eGFR values calculated with the CKD-EPI equation are not accurate in patients wi th acute kidney failure, extremes of body mass or the acutely ill. [email or web address] CITYnkf Specimen Anatomical Collection Method Collection Time Receive d Time (Source) Location / / Volume Laterality Blood specimen 11/29/2019 2:32 PM 020 2:32 (specimen) EDT PM EDT Resulting Agency Comment Spec In Lab Gretchen Yoon MD CHEMISTRY ORDERABLES Performing Organization Address City/State/[place] [address] EKG 12 Lead (11/29/2019 11:38 AM EDT) [facility] gist Method Time Signature Ventricular rate 60 BPM MUSE SYSTEM Atrial Rate 60 BPM MUSE SYSTEM P-R Interval 140 ms MUSE SYSTEM QRS Duration 86 ms MUSE SYSTEM Q-T Interval 474 ms MUSE SYSTEM QTC Calculated 474 ms MUSE SYSTEM (Bezet) Calculated P Ruby 48 degrees MUSE SYSTEM Calculated R Ruby 14 degrees MUSE SYSTEM Calculated T Ruby 58 degrees MUSE SYSTEM INTERPRETATION Normal sinus [...] PM EDT ?[facility] ? Cardiac Cathete rization/Intervention Report ? Patient Name: Angel Luis Salinas. ? Procedure Date: 11/29/2019 ? A #: [id number] ? Primary Physician: Gretchen Yoon ? Case #: [id number] ? File Name: [id number] ? Catheterization Order Number: [id number] ? [facility] ? Final Report [place], [place] ? Patient Name: ? Angel Luis Salinas ? ID#: ?[id number] ? : ?1945 ? Procedure Date: ? [...] procedure was Emergent. The indication for ?the lab technician visit is ACS less than [...] dose administered prior to arrival in the lab technician. ?Recommended anti-platelet/anti- thrombotic regimen: ?Continue aspirin 81 mg daily fo r indefinitely. ?Continue clopidogrel 75 mg marco a y for 12 months then stop. ?These recommendations are made at the time of the intervention. Patient ?and provider preferences or a c hanging clinical situation may require ?modification of this regimen. C onsult [facility] Interventional Cardiology for [...] the original. [facility] Cardiac Catheterization/Intervention Re port Patient Name: Angel Luis Salinas Procedure Date: 11/29/2019 A #: [id number] Primary Physician: Gretchen Yoon Case #: [id number] File Name: [id number] Catheterization Order Number: [id number] [facility] Final Report [place], [place] Patient Name: Angel Luis Salinas ID#: [id number] : 1945 Procedure Date: November 29, [...] was designated as ASA Class IV. The [facility] clinical frailty scale is 4: Vulnerable. Diagnostic Tests: Electrocardiography: EKG was assessed by ECG. EKG was Abnorm al. EKG showed ST Deviation >= 0.5 mm. Medications Prior to Procedure: Aspirin. Indications for Diagnostic Cath: The priority of the diagnostic procedur e was Emergent. The indication for the lab technician visit is ACS less than [...] this intervention was 10%. The final TI [place] flow was 2. Distal 90% Thrombectomy and [...] this intervention was 10%. The final TI [place] flow was 2. Vascular Access: Vascular Access [...] administered prior t o arrival in the lab technician. Recommended anti-platelet/anti-thrombot ic regimen: Continue aspirin 81 mg daily for indefi nitely. Continue clopidogrel 75 mg daily for 12 months then stop. These recommendations are made at the t loyda of the intervention. Patient and provider preferences or a changing clinical situation may require modification of this regimen. Consult [facility] Interventional Cardiology for questions. Conclusions: * Two [...] Blood Gas Historical (11/29/2019 9:17 AM EDT) [facility] gist Method Time Signature POC pH 7.33 (L) 7.35 - [facility] 7.45 [facility] LABORATORY POC PCO2 33 (L) 35 - 45 [facility] mmHg [facility] LABORATORY POC PO2 56 (L) 85 - 104 [facility] LABORATORY POC Base Excess -8.0 (L) -3.0 - 3.0 [facility] K mmol/L [facility] LABORATORY POC HCO3 17.4 (L) 20.0 - [facility] 26.0 [facility] POC Sodium 137 135 - 145 [facility] mmol/L [facility] POC Potassium 3.6 3.5 - 5.0 [facility] mmol/L [facility] LABORATORY POC Ionized Ca 1.15 1.15 - [facility] 1.33 [facility] POC Hematocrit 37.0 (L) 40.0 - [facility] 51.0 % [facility] LABORATORY POC Calc Hgb 12.6 (L) 13.7 - [facility] 17.5 gm/dL [facility] LABORATORY Comment: The calculation of [...] Organization Address City/State/[place] [address] EKG 12 Lead (11/29/2019 9:01 AM EDT) Component Value Ref Range Test Analysis Performed Pathologis t Method Time At Signature Ventricular rate 80 BPM MUSE SYSTEM Atrial Rate 79 BPM MUSE SYSTEM QRS Duration 94 ms MUSE SYSTEM Q-T Interval 436 ms MUSE SYSTEM QTC Calculated 502 ms MUSE SYSTEM (Bezet) Calculated R Ruby 54 degrees MUSE SYSTEM Calculated T Ruby 80 degrees MUSE SYSTEM INTERPRETATION Normal sinus rhythm MUSE SYSTEM Inferior infarct , possibly acute Prolonged QT * ACUTE [place] ?? Consider right ventricular involvement in acute [...] RN) 150 mg, Intravenous, ONCE, 1 dose, Reed at 1315, Warning Vesicant/Irritant Medication , Routine [...] Amaya Anderson RN) 0824 (Given - Provider: Aamya Anderson RN) 0925 [...] ONCE, 1 dose, 12/06/19 at 0515, Ad intern retail over 120 Minutes magnesium sulfate 2 g [...]
Routine documented in this encounter Care Teams Malt House Operator Relationship Specialty Start Date End Date France Lam MD PCP - General 05/02/13 02/04/20 [address] [place] [address] documented as of this encounter
--- OUTSIDE RECORDS SUMMARY | 2022-06-01 11:05 | XMS_ITS | Encounter Summary ---
:1945 Author Organization [place] [address] Care Team Providers Name Role Phone France Lam MD Primary Care Provider Encounter Details Date Type Department Care Team Description 05/13/2013 Orders Only Vascular Surgery at [facility] product transfer pumper disease) [facility] (Primary Dx) [place] [address] Social History Tobacco Use Types Packs/Day [...] [facility] ER DR ENDOCRINOLOGY [place], [place] [address] (Wo rk) documented as of this encounter Visit Diagnoses Diagnosis PVD (peripheral vascular disease) - Prim kayy Peripheral vascular disease, unspecified documented in this encounter Care Teams Jacquard Loom Heddles Tier Relationship Specialty Start Date End Date France Lam MD PCP - General 05/02/13 02/04/20 [address] [place], [place] [address] documented as of this encounter
--- OUTSIDE RECORDS SUMMARY | 2022-06-01 11:05 | XMS_ITS | Encounter Summary ---
:1945 Author Organization [facility] Address [facility] [place] [address] Care Team Providers Name Role Phone France Lam MD Primary Care Provider Reason for Visit Reason Comments Claudication Encounter Details Date Type Department Care Team Description 05/13/2013 Office Visit Vascular Surgery at David Sim from [facility] MD Bobby peripheral vascular [facility] dis ease, left (Primary Drive DR [place]) [place], [place] VASCULAR SURGERY [address] [place] [address] [phone] Social History Tobacco Use Types Packs/Day Years [...] 06/30/2022 Office Visit Endocrinology Alan Terrell MD [facility] ENDOCRINOLOGY [place], [place] 0[address] (Wo rk) documented as of this encounter Visit Diagnoses Diagnosis Claudication from peripheral vascular di sease, left - Primary Peripheral vascular disease, unspecified documented in this encounter Care Teams Sulfuric Acid Plant Operator Relationship Specialty Start Date End Date France Lam MD PCP - General 05/02/13 02/04/20 [address] [place] [address] documented as of this encounter
--- OUTSIDE RECORDS SUMMARY | 2022-06-01 11:05 | XMS_ITS | Encounter Summary ---
:1945 Author Organization [facility] [place] [address] Care Team Providers Name Role Phone France Lam MD Primary Care Provider Encounter Details Date Type Department Care Team Description 05/13/2013 Ancillary Vascular Surgery at Claritza Hall (Primary Appointment [facility] Cesilia Sebastian, [place] Dx) [place] [address] Social History Tobacco Use Types Packs/Day Years Used Date Smoking Tobacco: Every Day Cigarettes 0.5 Cigars Sex Assigned at Date Recorded Not on file documented as of this encounter Plan of Treatment Upcoming Encounters Date Type Specialty Care Team Description 06/30/2022 Office Visit Endocrinology Alan Terrell MD [facility] ENDOCRINOLOGY [place], [place] [address] (Wo rk) documented as of [...] VASCUBASE Report Department: Vascular Surgery Lab Patient: [id number] (ANGEL LUIS [place]) CPT Code: 24740 ICD-9: 440.21 Referring Physician: FRANCE LAM Indication: [...] Posterior Tibial (Ankle) Art derrell ??84 ?0.64 ??[place]- Biphasic ?? Interpretation: RIGHT: ??Mild lower extremity [...] limb documented in this encounter Care Teams Historical Guide Relationship Specialty Start Date End Date France Lam MD PCP - General 05/02/13 02/04/20 [address] [place] [address] documented as of this encounter
--- OUTSIDE RECORDS SUMMARY | 2022-06-01 11:05 | XMS_ITS | Encounter Summary ---
:1945 Author Organization [place] [address] Care Team Providers Name Role Phone France Lam MD Primary Care Provider Encounter Details Date Type Department Care Team Description 11/29/2019 External Results [facility] [place] [address] Social History Tobacco Use Types Packs/Day Years Used Date Smoking Tobacco: Every Day Cigarettes 0.5 Cigars Sex Assigned at Date Recorded Not on file documented as of this encounter Plan of Treatment Upcoming Encounters Date Type Specialty Care Team Description 06/30/2022 Office Visit Endocrinology Alan Terrell MD [facility] ER ENDOCRINOLOGY [place], [place] [address] (Wo rk) documented as of [...] on filedocumented in this encounter Care Teams Faith Doctor Relationship Specialty Start Date End Date France Lam MD PCP - General 05/02/13 02/04/20 [address] [place] [address] documented as of this encounter
--- OUTSIDE RECORDS SUMMARY | 2022-06-06 11:14 | XMS_ITS | Encounter Summary ---
:1945 Author Organization [facility] Address [address] [place] [id number] Support Name Relationship Address Phone FRANCI SALINAS Unavailable [address] [address] FRANCI SALINAS Unavailable [address] [place] [address] Insurance Providers: All historical and current Section Date Range: From patient's date of to the date document was created.This section includes the names of all active insurance providers for the patient. Insurance Type of Plan Start of End of Group Member Insurance Policy P atient's Provider Coverage Name Policy Policy Number ID Provider's Gregg's Relationship Coverage Coverage Telephone Name to Policy Number Gregg [facility] MEDIGAP PLAN- Dec 30, PLAND [id number] [phone] WILLIE SALINAS PATIENT LIFE AND PLAN D D [phone] HN ANNUITY MEDICARE MEDICARE PART Dec 30, PART B [id number] [id number] WILLIE SALINAS PATIENT (WNR) (M) B 2012 [id number] HN MEDICARE MEDICARE PART May 02, PART A [id number] [id number] WILLIE SALINAS PATIENT (WNR) (M) A 2010 [id number] 1 HN [employer] MEDIGAP Jul 02, PLANN [id number] [phone] RITA WILLIE PATIENT [place] PLAN N 2019 4 0 HN [place] Selected Encounter This section includes the information on record at [place] for the Encounter. Date/Time Encounter Type Encounter [...] the Encounter. The data comes from all [place] treatment facilities. Test Date/Time Test Type Test Details Facility Name Jul 05, 2021 09:12 AM Consult Order COMMUNITY CARE-PRIMARY [facility] CARE Cons Irrigation Technician's Choice Advance Directives: All historical and current Section Date Range: From patient's date of to the date document was created. This section includes ALL of a patient's completed or amended [place] Advance and Rescinded Directives. The entries below indicate that a directive exists for the patient, but an actual copy is not included with this document. The data comes from all [place] facilities. Date Advance Directives Provider Source Jan 15, 2019 ADVANCE DIRECTIVE DISCUSSION STEPHANIE HERNANDEZ [facility] Encounter Notes: All associated encounter notes This section contains the clinical notes associated to the Encounter. Date/Time Encounter Note(s) Provider Source Jul 04, 2021 02:56 PM NONVA NOTE: DEBI HERRERA [facility] LOCAL TITLE: COMMUNITY CARE COORDINATION PLAN [facility] STANDARD TITLE: NONVA NOTE DATE OF NOTE: JUL 04, 2021@14:56 ENTRY DATE: JUL 04, 2021@14:56:23 AUTHOR: DEBI HERRERA EXP COSIGNER: URGENCY: STATUS: COMPLETED COMMUNITY CARE COORDINATION PLAN Has ADDEND A Noted in [facility] report that [place]'s [facility] PCP consu lt is expiring 07/15/2021: Patient seeing [facility], Dr. Uriel rockwell. Phoned [place], apoke to , Kirstin, informed o f this [facility] expiring, [facility]. / c onfirmed preference is to continue PCP in the community due to [facility] inaccessib ility/Distance. Alerting OCC PA to review in considerati on of ordering CC PC for continuity of care and [place]'s preference. /osiris/ Debi Herrera DNP, MSA, RN-BC [facility] Clinical Repacker Signed: 07/04/2021 14:59 Receipt Acknowledged By: 07/05/2021 09:15 /osiris/ MARY GODDARD PA-C PHYSICIAN'S BOX MAKER CERTIFIED 07/05/2021 ADDENDUM STATUS: COMPLETED OCC PROVIDER NOTE: 'S CC PCP CONSULT WITH DR. DENIA PRADO FOR 12 MO. /osiris/ MARY GODDARD PA-C PHYSICIAN'S BOX MAKER CERTIFIED Signed: 07/05/2021 09:16 Receipt Acknowledged By: * AWAITING SIGNATURE * DEBI HERRERA
--- OUTSIDE RECORDS SUMMARY | 2022-06-06 11:14 | XMS_ITS | Continuity of Care Document ---
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 Z23 Encounter for [place] immunizationwith CBO C Provider Comments: Encounter for Immunization Diagnosis: ICD-10-CM Active Diagnosis ST. H90.3 Sensorineural [facility] hearing loss, CBOC bilateralwith Provider Comments: Asymmetrical sensorineural hearing loss (SNOMED CT [id number]) Diagnosis: ICD-10-CM Active Diagnosis ST. I25.10 Athscl heart [facility] disease of [place] CB OC coronary artery w/o ang pctrswith Provider Comments: Atherosclerotic Heart Disease of [place] Coronary Artery without Angina Pectoris Medications Combined list of outpatient medications from Department of Defense and Veterans Affairs facilities. Medications provided include 1) outpatient medications from the last 15 months, and 2) patient-reported medications. Medication Details Route Status Patient Prescription Prescription Last Ordering Order Source Instructions Expires Number Dispense Provider Date Date AMIODARONE TAKE ONE ORAL ACTIVE 02/14/2023 [id number] JORGE A LOZA 02/15/ CARLOS HCL TABLET 2 N 2021 [place] (PACERONE) BY MOUTH [place] 200MG TAB EVERY [facility] DAY AFTER ONE MONTH OF TWICE DAILY DOSING THROUGH 02/26/22 APIXABAN TAKE ONE ORAL ACTIVE 2023 [id number] WILLIE LOZA 01/20/ WHITE 5MG TAB TABLET 2 N 2021 [place] BY MOUTH [place] TWICE A [facility] DAY TO HELP PREVENT BLOOD CLOTS (ANTICOA GULATION CCNRX) APIXABAN TAKE ONE ORAL 12/21/2021 [id number] GIANGR ECO 12/30/ WHITE 5MG TAB TABLET [...] DAY FUROSEMIDE TAKE ONE ORAL ACTIVE 12/17/2022 [id number] JORGE A LOZA 12/21/ WHITE 20MG TAB TABLET 2 N 2021 [place] BY MOUTH [place] EVERY [facility] OTHER DAY TO REMOVE FLUID/CO NTROL BLOOD PRESSURE FUROSEMIDE TAKE ONE ORAL 11/12/2021 [id number] SJ PATTON,M 11/12/ ST. 20MG TAB TABLET 2 ICHAEL 2020 [place] BY MOUTH RY CBOC EVERY OTHER DAY TO REMOVE FLUID/CO NTROL BLOOD PRESSURE LISINOPRIL TAKE ONE ORAL ACTIVE 12/17/2022 [id number] JORGE A LOZA 12/21/ WHITE 5MG TAB TABLET 2 N 2021 [place] BY MOUTH [place] EVERY [facility] DAY TO CONTROL BLOOD PRESSURE LISINOPRIL TAKE ONE ORAL DISCONT 06/08/2022 [id number] JORGE A LOZA 06/15/ WHITE 5MG TAB TABLET INUED 2 N 2020 [place] BY MOUTH [place] EVERY [facility] DAY TO CONTROL BLOOD PRESSURE LISINOPRIL TAKE ONE ORAL 06/03/2021 [id number] STANL EY,M 06/08/ ST. 5MG TAB TABLET 1 ICHAEL 2019 [place] BY MOUTH RY CBOC EVERY DAY TO CONTROL BLOOD PRESSURE METOPROLOL TAKE ONE ORAL ACTIVE 02/14/2023 [id number] JORGE A LOZA 02/15/ WHITE SUCCINATE TABLET 2 N 2021 [place] 25MG TAB,SA BY MOUTH [place] EVERY [facility] DAY FOR BLOOD PRESSURE /HEART METOPROLOL TAKE ONE ORAL DISCONT 02/23/2022 [id number] Mery BELVINS 02/28/ ST. SUCCINATE TABLET INUED 2 ICHAEL 2020 JOHNS[place] 25MG TAB,SA BY MOUTH RY CB OC EVERY DAY FOR BLOOD PRESSURE /HEART Allergies, Adverse Reactions, Alerts Combined list of [...] atus Comments Source Given By Number Code Medical Researcher ZOSTER [address] RECOMBINANT 2020 ed [...] INFLUENZA, complet St WHITE U[facility]PECIFIED [facility] [place] [facility] y [place] [facility] Center TD(ADULT) complet W [place]IM[place] UNSPECIFIED [...] multiply result by 1.210 Tests performed on [employer] (405) SN:[id number] [place] T eGFR E] IN SERUM Ordering Pr ovider: MILTON UREÑA [facility] PANEL OR PLASMA Report Releas ed Date/Time: Feb 24, 2021 11:18 AM Reporting Lab: [place] [facility] [address] [facility] [address] Performing Lab: [place] [facility] [address] [place] [facility] [place] [address] CREATININ GLOMERULAR 44 60 04/28 L Specimen Ty pe: PLASMA WHITE E WITH FILTRATION /2020 Comment: For eGFR: Race unknown, if multiply result by 1.210 Tests performed on [employer] (405) SN:[id number] [place] eGFR RATE/1.73 Ordering Prov ider: MILTON UREÑ[facility] PANEL SQ Report Released Date/Time: Feb 24, 2021 11:18 AM M.PREDICTED Reporting L ab: [place] [facility] [VOLUME [address] [facility] [address] RATE/AREA] Performing L ab: [place] [facility] IN SERUM OR [address] [facility] [address] PLASMA BY CREATININE- BASED FORMULA (MDRD) CBC NO LEUKOCYTES 5.8 4.5 - 11.0 04/28 Specimen T ype: BLOOD WHITE DIFF [#/VOLUME] /2020 No comment en tered. [place] IN BLOOD BY Ordering Pr ovider: MILTON UREÑA AUTOMATED Report Releas ed Date/Time: Feb 24, 2021 11:18 AM COUNT Reporting Lab: [place] [facility] [address] [place] [facility] [place] [address] Performing Lab: [place] [facility] [address] [place] [facility] [place] [address] CBC NO ERYTHROCYTE 4.61 4.23 - 04/28 Specimen Typ e: BLOOD WHITE DIFF S 5.66 No comment enter ed. [place] [#/VOLUME] Ordering Pro vider: MILTON UREÑ[facility] IN BLOOD BY Report Rele ased Date/Time: Feb 24, 2021 11:18 AM AUTOMATED Reporting Lab : [place] [facility] COUNT [address] [place] [facility] [place] [address] Performing Lab: [place] [facility] [address] [facility] [address] CBC NO HEMOGLOBIN 13.9 12.8 - 17 04/28 Specimen Ty pe: BLOOD WHITE DIFF [MASS/VOLUM /2020 No comment e ntered. [place] E] IN BLOOD Ordering Pr ovider: GIANGRECO,MILTON B [facility] Report Released Date/Time: Feb 24, 2021 11:18 AM Reporting Lab: [place] [facility] [address] [facility] [address] Performing Lab: [place] [facility] [address] [facility] [address] CBC NO HEMATOCRIT 43.6 39.2 - 04/28 Specimen Type : BLOOD WHITE DIFF [VOLUME 50.4 No comment enter ed. [place] FRACTION] Ordering Prov ider: MILTON UREÑAOC OF BLOOD BY Report Rele ased Date/Time: Feb 24, 2021 11:18 AM AUTOMATED Reporting Lab : [place] [facility] COUNT [address] [facility] [address] Performing Lab: [place] [facility] [address] [facility] [address] CBC NO MCV 94.6 82 - 99 04/28 Specimen Type: B LOOD WHITE DIFF [ENTITIC /2020 No comment ente red. [place] VOLUME] BY Ordering Pro vider: MILTON UREÑAOC AUTOMATED Report Releas ed Date/Time: Feb 24, 2021 11:18 AM COUNT Reporting Lab: [place] [facility] [address] [facility] [address] Performing Lab: [place] [facility] [address] [facility] [address] CBC NO MCH 30.2 26.2 - 04/28 Specimen Type: B LOOD WHITE DIFF [ENTITIC 32.6 No comment ente red. [place] MASS] BY Ordering Provi adrian: MILTON UREÑ[facility] AUTOMATED Report Releas ed Date/Time: Feb 24, 2021 11:18 AM COUNT Reporting Lab: [place] [facility] [address] [facility] [address] Performing Lab: [place] [facility] [address] [facility] [address] CBC NO MCHC 31.9 30.8 - 04/28 Specimen Type: B LOOD WHITE DIFF [MASS/VOLUM 35.1 No comment e ntered. [place] E] BY Ordering Provid er: MILTON UREÑAOC AUTOMATED Report Releas ed Date/Time: Feb 24, 2021 11:18 AM COUNT Reporting Lab: [place] [facility] [address] [facility] [address] Performing Lab: [place] [facility] [address] [facility] [address] CBC NO PLATELETS 141 140 - 360 04/28 Specimen Typ e: BLOOD WHITE DIFF [#/VOLUME] /2020 No comment en tered. [place] IN BLOOD BY Ordering Pr ovider: MILTON UREÑAOC AUTOMATED Report Releas ed Date/Time: Feb 24, 2021 11:18 AM COUNT Reporting Lab: [place] [facility] [address] [facility] [address] Performing Lab: [place] [facility] [address] [facility] [address] CBC NO PLATELET 12.1 9.2 - 12.4 04/28 Specimen Typ e: BLOOD WHITE DIFF MEAN VOLUME /2020 No comment e ntered. [place] [ENTITIC Ordering Provi adrian: MILTON UREÑA VOLUME] IN Report Relea sed Date/Time: Feb 24, 2021 11:18 AM BLOOD BY Reporting Lab: [place] [facility] AUTOMATED [address] [facility] [address] COUNT Performing Lab: [place] [facility] [address] [place] [facility] [place] [address] CBC NO ERYTHROCYTE 15.0 12.0 - 04/28 Specimen Typ e: BLOOD WHITE DIFF DISTRIBUTIO 16.0 /2020 No comment e ntered. [place] N WIDTH Ordering Provid er: MILTON UREÑAOC [RATIO] BY Report Relea sed Date/Time: Feb 24, 2021 11:18 AM AUTOMATED Reporting Lab : [place] [facility] COUNT [address] [place] [facility] [place] [address] Performing Lab: [place] [facility] [address] [place] [facility] [place] [address] CBC NO LEUKOCYTES 6.8 4.5 - 11.0 02/22 Specimen T ype: BLOOD WHITE DIFF [#/VOLUME] /2020 No comment en tered. [place] IN BLOOD BY Ordering Pr ovider: MILTON UREÑAOC AUTOMATED Report Releas ed Date/Time: Dec 20, 2020 02:24 PM COUNT Reporting Lab: [place] [facility] [address] [place] [facility] [place] [address] Performing Lab: [place] [facility] [address] [place] [facility] [place] [address] CBC NO ERYTHROCYTE 5.03 4.23 - 08 Specimen Typ e: BLOOD WHITE DIFF S 5.66 No comment enter ed. [place] [#/VOLUME] Ordering Pro vider: MILTON UREÑA [facility] IN BLOOD BY Report Rele ased Date/Time: Dec 20, 2020 02:24 PM AUTOMATED Reporting Lab : [place] [facility] COUNT [address] [place] [facility] [place] [address] Performing Lab: [place] [facility] [address] [facility] [address] CBC NO HEMOGLOBIN 14.9 12.8 - 17 02/22 Specimen Ty pe: BLOOD WHITE DIFF [MASS/VOLUM /2020 No comment e ntered. [place] E] IN BLOOD Ordering Pr ovider: MILTON UREÑA Report Released Date/Time: Dec 20, 2020 02:24 PM Reporting Lab: [place] [facility] [address] [place] [facility] [place] [address] Performing Lab: [place] [facility] [address] [place] [facility] [place] [address] CBC NO HEMATOCRIT 46.7 39.2 - 02/22 Specimen Type : BLOOD WHITE DIFF [VOLUME 50.4 No comment enter ed. [place] FRACTION] Ordering Prov ider: MILTON UREÑA [facility] OF BLOOD BY Report Rele ased Date/Time: Dec 20, 2020 02:24 PM AUTOMATED Reporting Lab : [place] [facility] COUNT [address] [place] [facility] [place] [address] Performing Lab: [place] [facility] [address] [place] [facility] [place] [address] CBC NO MCV 92.8 82 - 99 02/22 Specimen Type: B LOOD WHITE DIFF [ENTITIC /2020 No comment ente red. [place] VOLUME] BY Ordering Pro vider: MILTON UREÑAOC AUTOMATED Report Releas ed Date/Time: Dec 20, 2020 02:24 PM COUNT Reporting Lab: [place] [facility] [address] [facility] [address] Performing Lab: [place] [facility] [address] [facility] [address] CBC NO MCH 29.6 26.2 - 08 Specimen Type: B LOOD WHITE DIFF [ENTITIC 32.6 /2020 No comment ente red. [place] MASS] BY Ordering Provi adrian: MILTON UREÑA AUTOMATED Report Releas ed Date/Time: Dec 20, 2020 02:24 PM COUNT Reporting Lab: [place] [facility] [address] [facility] [address] Performing Lab: [place] [facility] [address] [facility] [address] CBC NO MCHC 31.9 30.8 - 08 Specimen Type: B LOOD WHITE DIFF [MASS/VOLUM 35.1 /2020 No comment e ntered. [place] E] BY Ordering Provid er: MILTON UREÑA AUTOMATED Report Releas ed Date/Time: Dec 20, 2020 02:24 PM COUNT Reporting Lab: [place] [facility] [address] [facility] [address] Performing Lab: [place] [facility] [address] [place] [facility] [place] [address] CBC NO PLATELETS 159 140 - 360 08 Specimen Typ e: BLOOD WHITE DIFF [#/VOLUME] /2020 No comment en tered. [place] IN BLOOD BY Ordering Pr ovider: MILTON UREÑA AUTOMATED Report Releas ed Date/Time: Dec 20, 2020 02:24 PM COUNT Reporting Lab: [place] [facility] [address] [facility] [address] Performing Lab: [place] [facility] [address] [place] [facility] [place] [address] CBC NO PLATELET 13.0 9.2 - 12.4 08/24 H Specimen Typ e: BLOOD WHITE DIFF MEAN VOLUME /2020 No comment e ntered. [place] [ENTITIC Ordering Provi adrian: GIANGRECO,MILTON B [facility] VOLUME] IN Report Relea sed Date/Time: Dec 20, 2020 02:24 PM BLOOD BY Reporting Lab: [place] [facility] AUTOMATED [address] [place] [facility] [place] [address] COUNT Performing Lab: [place] [facility] [address] [place] [facility] [place] [address] CBC NO ERYTHROCYTE 14.6 12.0 - 08 Specimen Typ e: BLOOD WHITE DIFF DISTRIBUTIO 16.0 No comment e ntered. [place] N WIDTH Ordering Provid er: MILTON UREÑ[facility]ROC [RATIO] BY Report Relea sed Date/Time: Dec 20, 2020 02:24 PM AUTOMATED Reporting Lab : [place] [facility] COUNT [address] [place] [facility] [place] [address] Performing Lab: [place] [facility] [address] [place] [facility] [place] [address] CREATININ CREATININE 1.37 0.5 - 1.5 02/22 Specimen Type: PLASMA WHITE E WITH [MASS/VOLUM /2020 Comment: Fo r eGFR: Race unknown, if multiply result by 1.210 Tests performed on [employer] (405) SN:[id number] [place] eGFR E] IN SERUM Ordering Pr ovider: MILTON UREÑA [facility] PANEL OR PLASMA Report Rele ed Date/Time: Dec 20, 2020 02:24 PM Reporting Lab: [place] [facility] [address] [place] [facility] [place] [address] Performing Lab: [place] [facility] [address] [place] [facility] [place] [address] CREATININ GLOMERULAR 51 60 08 L Specimen Ty pe: PLASMA WHITE E WITH FILTRATION /2020 Comment: For eGFR: Race unknown, if multiply result by 1.210 Tests performed on [employer] (405) SN:[id number] [place] eGFR RATE/1.73 Ordering Prov ider: MILTON UREÑA [facility] PANEL SQ Report Released Date/Time: Dec 20, 2020 02:24 PM M.PREDICTED Reporting L ab: [place] [facility] [VOLUME [address] [place] [facility] [place] [address] RATE/AREA] Performing L ab: [place] [facility] IN SERUM OR [address] [facility] [address] PLASMA BY CREATININE- BASED FORMULA (MDRD) P4 UREA 20 7 - 25 02/22 Specimen Type: P LASMA ST. GLU,BUN,C NITROGEN /2020 Comment: For eGFR: Race unknown, if multiply result by 1.210 Tests performed on [employer] (405) SN:[id number] IVORY BECKETT [MASS/VOLUM Ordering Provider: GRETCHEN PEREZ CA E] IN SERUM Report Rele ased Date/Time: Feb 22, 2021 10:13 AM OR PLASMA Reporting Lab : [facility] [address] [facility] [address] Performing Lab: [facility] [address] [facility] [address] P4 SODIUM 133 135 - 145 02/22 L Specimen Type: PLASMA ST. GLU,BUN,C [MOLES/VOLU /2020 Comment: For eGFR: Race unknown, if multiply result by 1.210 Tests performed on [employer] (405) SN:[id number] IVORY BECKETT ME] IN Ordering Prov ider: GRETCHEN PEREZ CA SERUM OR Report Release d Date/Time: Feb 22, 2021 10:13 AM PLASMA Reporting Lab: [facility] [address] [facility] [address] Performing Lab: [facility] [address] [facility] [address] P4 POTASSIUM 4.5 3.5 - 5.0 02/22 Specimen Typ e: PLASMA ST. GLU,BUN,C [MOLES/VOLU /2020 Comment: For eGFR: Race unknown, if multiply result by 1.210 Tests performed on [employer] (405) SN:[id number] IVORY BECKETT ME] IN Ordering Prov ider: GRTECHEN PEREZ CA SERUM OR Report Release d Date/Time: Feb 22, 2021 10:13 AM PLASMA Reporting Lab: [facility] [address] [facility] [address] Performing Lab: [facility] [address] [facility] [address] P4 CHLORIDE 102 100 - 110 02/22 Specimen Type : PLASMA ST. GLU,BUN,C [MOLES/VOLU /2020 Comment: For eGFR: Race unknown, if multiply result by 1.210 Tests performed on [employer] (405) SN:[id number] IVORY BECKETT ME] IN Ordering Prov ider: GRECTHEN PEREZ CA SERUM OR Report Release d Date/Time: Feb 22, 2021 10:13 AM PLASMA Reporting Lab: [place] [facility] [address] [place] [facility] [place] [address] Performing Lab: [place] [facility] [address] [place] [facility] [place] [address] P4 CARBON 21 20 - 30 02/22 Specimen Type: P LASMA ST. GLU,BUN,C DIOXIDE, /2020 Comment: For eGFR: Race unknown, if multiply result by 1.210 Tests performed on [employer] (405) SN:[id number] IVORY BECKETT TOTAL Ordering Prov ider: GRETCHEN PEREZ CA [MOLES/VOLU Report Rele ased Date/Time: Feb 22, 2021 10:13 AM ME] IN Reporting Lab[facility] SER[facility] OR [address] [facility] [place] [address] PLASMA Performing Lab: [place] [facility] [address] [place] [facility] [place] [address] P4 ANION GAP 10 4 - 16 02/22 Specimen Type: PLASMA ST. GLU,BUN,C IN SERUM OR /2020 Comment: For eGFR: Race unknown, if multiply result by 1.210 Tests performed on [employer] (405) SN:[id number] MARCELA NYELYIZA PLASMA Ordering Prov ider: GRETCHEN PEREZ CA Report Released Date/Time: Feb 22, 2021 10:13 AM Reporting Lab: [place] [facility] [address] [place] [facility] [place] [address] Performing Lab: [place] [facility] [address] [place] [facility] [place] [address] P4 GLUCOSE 106 65 - 100 08/24 H Specimen Type: PLASMA ST. GLU,BUN,C [MASS/VOLUM /2020 Comment: For eGFR: Race unknown, if multiply result by 1.210 Tests performed on [employer] (405) SN:[id number] IVORY BECKETT E] IN SERUM Ordering Provider: GRETCHEN PEREZ CA OR PLASMA Report Rele ed Date/Time: Feb 22, 2021 10:13 AM Reporting Lab: [facility] [address] [facility] [address] Performing Lab: [facility] [address] [facility] [address] P4 CREATININE 1.37 0.5 - 1.5 02/22 Specimen Ty pe: PLASMA ST. GLU,BUN,C [MASS/VOLUM /2020 Comment: For eGFR: Race unknown, if multiply result by 1.210 Tests performed on [employer] (405) SN:[id number] IVORY BECKTET E] IN SERUM Ordering Provider: GRETCHEN PEREZ CA OR PLASMA Report Rele ed Date/Time: Feb 22, 2021 10:13 AM Reporting Lab: [facility] [address] [facility] [address] Performing Lab: [facility] [address] [facility] [address] P4 CALCIUM 9.6 8.5 - 10.5 02/22 Specimen Type : PLASMA ST. GLU,BUN,C [MASS/VOLUM /2020 Comment: For eGFR: Race unknown, if multiply result by 1.210 Tests performed on [employer] (405) SN:[id number] IVORY BECKETT E] IN SERUM Ordering Provider: GRETCHEN PEREZ CA OR PLASMA Report [facility] ed Date/Time: Feb 22, 2021 10:13 AM Reporting Lab: [facility] [address] [facility] [address] Performing Lab: [facility] [address] [facility] [address] P4 GLOMERULAR 51 60 02/22 L Specimen Type : PLASMA ST. GLU,BUN,C Comment: F or eGFR: Race unknown, if multiply result by 1.210 Tests performed on [employer] (405) SN:[id number] IVORY BECKETT RATE/1.73 Ordering Pr ovider: GRETCHEN PEREZ CA SQ Report Released Date/Time: Feb 22, 2021 10:13 AM M.PREDICTED Reporting L ab: [place] [facility] [VOLUME [address] [place] [facility] [place] [address] RATE/AREA] Performing L ab: [place] [facility] IN SERUM OR [address] [facility] [address] PLASMA BY CREATININE- BASED FORMULA (MDRD) LIVER PROTEIN 8.0 6.0 - 8.5 02/22 Specimen Type: PLASMA ST. PROFILE [MASS/VOLUM /2020 Comment: Fo r eGFR: Race unknown, if multiply result by 1.210 Tests performed on [employer] (405) SN:[id number] [facility] Cece] IN SERUM Ordering Pr ovider: GRETCHEN PEREZ OR PLASMA Report Releas ed Date/Time: Feb 22, 2021 10:13 AM Reporting Lab: [place] [facility] [address] [place] [facility] [place] [address] Performing Lab: [place] [facility] [address] [place] [facility] [place] [address] LIVER ALBUMIN 4.0 3.2 - 5.0 02/22 Specimen Type: PLASMA ST. PROFILE [MASS/VOLUM /2020 Comment: Fo r eGFR: Race unknown, if multiply result by 1.210 Tests performed on [employer] (405) SN:[id number] MARCELA E] IN SERUM Ordering Pr ovider: GRETCHEN PEREZ OR PLASMA Report Releas ed Date/Time: Feb 22, 2021 10:13 AM Reporting Lab: [place] [facility] [address] [place] [facility] [place] [address] Performing Lab: [place] [facility] [address] [facility] [address] LIVER BILIRUBIN.T 0.6 0.2 - 1.2 02/22 Specimen T ype: PLASMA ST. PROFILE OTAL /2020 Comment: For eG FR: Race unknown, if multiply result by 1.210 Tests performed on [employer] (405) SN:[id number] [facility] [MASS/VOLUM Ordering Pr ovider: GRETCHEN PEREZ E] IN SERUM Report Rele ased Date/Time: Feb 22, 2021 10:13 AM OR PLASMA Reporting Lab : [place] [facility] [address] [place] [facility] [place] [address] Performing Lab: [place] [facility] [address] [facility] [address] LIVER ALKALINE 75 40 - 150 08 Specimen Type: PLASMA ST. PROFILE PHOSPHATASE /2020 Comment: Fo r eGFR: Race unknown, if multiply result by 1.210 Tests performed on [employer] (405) SN:[id number] [facility] [ENZYMATIC Ordering Pro vider: GRETCHEN PEREZ ACTIVITY/VO Report Rele ased Date/Time: Feb 22, 2021 10:13 AM LUME] IN Reporting Lab: [place] [facility] SERUM OR [address] [facility] [address] PLASMA Performing Lab: [place] [facility] [address] [facility] [address] LIVER ALANINE 16 7 - 52 02/22 Specimen Type: P LASMA ST. PROFILE AMINOTRANSF /2020 Comment: Fo r eGFR: Race unknown, if multiply result by 1.210 Tests performed on [employer] (405) SN:[id number] [facility] ERASE Ordering Provid er: GRETCHEN PEREZ [ENZYMATIC Report Relea sed Date/Time: Feb 22, 2021 10:13 AM ACTIVITY/VO Reporting L ab: [place] [facility] LUME] IN [address] [facility] [address] SERUM OR Performing Lab : [facility] PLASMA [address] [facility] [address] LIVER ASPARTATE 17 5 - 34 02/22 Specimen Type: PLASMA ST. PROFILE AMINOTRANSF /2020 Comment: Fo r eGFR: Race unknown, if multiply result by 1.210 Tests performed on [employer] (405) SN:[id number] [facility] ERA Ordering Provid er: GRETCHEN PEREZ [ENZYMATIC Report Relea sed Date/Time: Feb 22, 2021 10:13 AM ACTIVITY/VO Reporting L ab: [facility] LUME] IN [address] [facility] [address] SERUM OR Performing Lab : [facility] PLASMA [address] [facility] [address] GLYCOHEMO HEMOGLOBIN 6.2 4.0 - 5.6 08/24 H Specimen Type: BLOOD ST. GLOBIN A1C/HEMOGLO /2020 Comment: Te sts performed on [employer] (405) SN:[id number] [facility] (A1C BIN.TOTAL Ordering Prov ider: GRETCHEN PEREZ ONLY) IN BLOOD BY Report Rele ased Date/Time: Feb 22, 2021 10:13 AM HPLC Reporting Lab: [facility] [address] [facility] [address] Performing Lab: [facility] [address] [facility] [address] LIPOPROTE CHOLESTEROL 361 0 - 199 08/24 H Specimen T ype: PLASMA ST. IN [MASS/VOLUM /2020 Comment: Fo r eGFR: Race unknown, if multiply result by 1.210 Tests performed on [employer] (405) SN:[id number] MARCELA CHOLESTER E] IN SERUM Ordering Provider: GRETCHEN PEREZ OL FRACT. OR PLASMA Report Rele ased Date/Time: Feb 22, 2021 10:13 AM PANEL Reporting Lab: [facility] [address] [facility] [address] Performing Lab: [facility] [address] [facility] [address] LIPOPROTE TRIGLYCERID 170 0 - 149 08/24 H Specimen T ype: PLASMA ST. IN E /2020 Comment: For eG FR: Race unknown, if multiply result by 1.210 Tests performed on [employer] (405) SN:[id number] [facility] CHOLESTER [MASS/VOLUM Ordering Provider: GRETCHEN PEREZ OL FRACT. E] IN SERUM Report Re leased Date/Time: Feb 22, 2021 10:13 AM PANEL OR PLASMA Reporting Lab : [facility] [address] [place] [facility] [place] [place] [address] [facility] [facility] [address] [place] [place] [address] LIPOPROTE CHOLESTEROL 46 40 08/24 Specimen T ype: PLASMA ST. IN IN HDL /2020 Comment: For eG FR: Race unknown, if multiply result by 1.210 Tests performed on [employer] (405) SN:[id number] MARCELA CHOLESTER [MASS/VOLUM Ordering Provider: GRETCHEN PEREZ OL FRACT. E] IN SERUM Report Re leased Date/Time: Feb 22, 2021 10:13 AM PANEL OR PLASMA Reporting Lab : [facility] [address] [place] [place] [place] [place] [address] Performing Lab: [facility] [address] [facility] [address] LIPOPROTE CHOLESTEROL 281 0 - 129 08/24 H Specimen T ype: PLASMA ST. IN IN LDL /2020 Comment: For eG FR: Race unknown, if multiply result by 1.210 Tests performed on [employer] Office Equipment Technician (405) SN:[id number] [facility] CHOLESTER [MASS/VOLUM Ordering Provider: GRETCHEN PEREZ OL FRACT. E] IN SERUM Report Re leased Date/Time: Feb 22, 2021 10:13 AM PANEL OR PLASMA Reporting Lab : [place] [facility] BY [address] [facility] [address] CALCULATION Performing Lab: [place] [facility] [address] [facility] [address] VIT D CALCIFEROL 40.8 20 - 50 08 Specimen Type : SERUM ST. 25-OH(WRJ (VIT D2) /2020 Comment: Kirsten ts performed on [employer] Office Equipment Technician (405) SN:[id number] [facility] ) [MASS/VOLUM Ordering Pr ovider: GRETCHEN PEREZ E] IN SERUM Report Rele ased Date/Time: Feb 22, 2021 10:13 AM OR PLASMA Reporting Lab : [place] [facility] [address] [facility] [address] Performing Lab: [place] [facility] [address] [facility] [address] VITAMIN COBALAMIN 312 200 - 900 08 Specimen Typ e: SERUM ST. 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
wi Provide r Comment s: Long-te rm current use of anticoa gulant (SCT 9969964 03) Outpatient 02/22 WHIT E Encounter [id number] [place] [facility] OFFICE O/P Diagnos [place], [place] 02/22 ST. EST MOD [id number] is: CHAEL JOHNSBU 30-39 MIN 29 ICD-10- RY CBOC CM I25.10 Athscl heart disease of [place] coronar y artery w/o ang pctrs<b r/>with Provide r Comment s: Atheros cleroti c Heart Disease of [place] Coronar y Artery without Angina Pectori s Outpatient 02/24 WHIT E Encounter [id number] [place] [facility] MTMS BY Diagnos NATALIAJose Elias, 02/24 WHITE PHARM EST [id number] is: MILTON RI DORI 15 MIN ICD-10- [place] CM [facility] Z79.01 MCFP (curren t) use of anticoa gulants
wi Provide r Comment s: Long-te rm current use of anticoa gulant (SCT 1296483 03) Outpatient 03/02 WHIT E Encounter [id number] [place] [facility] COMPREHENS Diagnos MELLISSA GARCIA 04/12 ST. ELA [id number] is: HLEY A JOHNSBU HEARING 39 ICD-10- RY CBOC TEST CM H90.3 Sensori neural hearing loss, bilater al
with Provide r Comment s: Asymmet rical sensori neural hearing loss (SNOMED CT 6028451 09) Outpatient [id number] 04/15 WHIT E Encounter [id number] /2021 [facility] 04835-7.40 Diagnos CORI, 04/28 ST. EST [id number] is: SAMMY A JOHNSB U MINIMAL 02 ICD-10- RY CBOC PROB CM Z23 Encount er for immuniz ation<b r/>with Provide r Comment s: Encount er for Immuniz ation HC PRO 34264-8.40 Diagnos NICOLA LEONE 04/29 W JIMBO PHONE CALL [id number] is: AN RIVE R 11-20 MIN ICD-10- JCT CM [facility] Z79.01 MCFP (curren t) use of anticoa gulants
wi th Provide r Comment s: Long-te rm current use of anticoa gulant ([facility] [id number] 03) Outpatient [id number] 07/04 WHIT E Encounter [id number] /2022 [facility] 22070-7.40 03/03 WHIT E Encounter [id number] /2022 [facility] Social History Combined list of available smoking, tobacco, and other social history from Department of Defense andVeterans Affairs facilities. Social History Response Date Comment Source Type Tobacco smoking VA-TOBACCO FORMER 02/22/2021 [facility] CBOC status NHIS USER History of tobacco VA-TOBACCO QUIT 1 02/22/2021 [facility] CBOC use TO < 5 YRS History of tobacco VA-TOBACCO FORMER 03/04/2020 [facility] CBOC use USER History of tobacco VA-TOBACCO USE 03/21/2018 [facility] CBOC use ADMISSIONS COUNSELOR NO History of tobacco CURRENT SMOKER 01/16/2018 [facility] CBOC use History of tobacco CURRENT SMOKER 03/28/2017 [facility] VA use CLINIC History of tobacco CURRENT SMOKER 04/17/2016 smokes about half [facility] CBOC use a pack a day History of tobacco CURRENT SMOKER 04/22/2015 smokes about half [facility] CBOC use a pack a day Advance Directives List of completed, amended, or rescinded Advance Directives on record at Department of [facility] facilities. An actual copy of the Directive is not included. Date Advance Directive Provider Source 01/15/2019 ADVANCE DIRECTIVE DISCUSSION STEPHANIE HERNANDEZ [facility]
[2022-06-06 11:15] VITALS: BP 103/48; PULSE 145
--- OUTSIDE RECORDS SUMMARY | 2022-06-06 11:15 | XMS_ITS | Encounter Summary ---
:1945 Author Organization [facility] [place] [address] Care Team Providers Name Role Phone France Lam MD Primary Care Provider Encounter Details Date Type Department Care Team Description 12/23/2019 TH Visit Neurosurgery at [facility] Alfreda Salas Intracranial (TeleHealth) [facility] C, [place] [address] [phone] [place] [address] Social History Tobacco Use Types Packs/Day Years Used Date Smoking Tobacco: Every Day Cigarettes 0.5 Cigars Sex Assigned at Date Recorded Not on file documented as of this encounter Progress Notes Alfreda Salas, DRAG OUT MAN - 12/23/2019 1:30 PM EDT Images from [...] [address] up [address] at [facility], showing slight decrease in size and [...] 3-4 weeks which may be done at [facility] with follow up TOV [facility]. Head CT 12/18/19 Assessment and Plan [...] Office Visit Endocrinology Alan Terrell MD [facility] ER ENDOCRINOLOGY [place], [place] [address] (Wo rk) documented as of this encounter Visit Diagnoses Diagnosis Intracranial hemorrhage Unspecified intracranial hemorrhage documented in this encounter Care Teams Monument Stonecutter Relationship Specialty Start Date End Date France Lam MD PCP - General 05/02/13 02/04/20 [address] [place] [address] documented as of this encounter
--- OUTSIDE RECORDS SUMMARY | 2022-06-06 11:15 | XMS_ITS | Clinical Summary ---
:1945 Author Organization [facility] Address [address] [place] [address] Care Team Providers Name Role Phone Jennifer Gomez Bunny ARMATURE WINDER REPAIR HELPER Primary Care Provider Encounters Date Type Specialty [...] Organization Address City/State/ZIP Code Phon e Number [facility] CENTER LABORATORY [address] [place] [address] SERVICES from Last 3 Months Insurance Payer Benefit Plan Subscriber ID Effective Phone Address Typ e / Group Dates MUTUAL OF MUTUAL OF [id number] 2018-Prese [id number] [place] [address] MEDICARE MEDICARE A/B [id number] 2011-Pres [address] Medicare GL ent [id number] [id number] (Work) Jovany Hi Personal/Family Self [address] (Home) [place] [address] (Work) Jovany Hi Personal/Family Self [address] (Home) [place] [address] (Work) Care Teams Needle Loom Operator Helper Relationship Specialty Start Date End Date Jennifer Gomez NP PCP - General 05/10/15 [facility] [address] [place], [place] [address] (work)
--- OUTSIDE RECORDS SUMMARY | 2022-06-06 11:15 | XMS_ITS | Encounter Summary ---
:1945 Author Organization [facility] Address [facility] [place] [address] Care Team Providers Name Role Phone France Lam MD Primary Care Provider Encounter Details Date Type Department Care Team Description 12/22/2019 Telephone Cardiology Riki Stevens, [facility] [place] [address] [facility] [phone] GENERAL INTERNAL MEDICINE [place] [address] (Wo rk) Social History Tobacco Use Types [...] Office Visit Endocrinology EchtAlan MD [facility] ER [address] [place], [place] [address] (Wo rk) documented as of this encounter Visit Diagnoses Not on filedocumented in this encounter Care Teams Oil Recovery Operator Relationship Specialty Start Date End Date France Lam MD PCP - General 05/02/13 02/04/20 [address] [place] [address] documented as of this encounter
--- OUTSIDE RECORDS SUMMARY | 2022-06-06 11:15 | XMS_ITS | Encounter Summary ---
:1945 Author Organization [facility] Address [address] [place] [address] Care Team Providers Name Role Phone Jennifer Gomez DEBRANDER Primary Care Provider Encounter Details Date Type Department Care Team Description 01/25/2022 Lab Requisition [facility] Outr Resulting Lab, Pathology & Laboratory Provider [facility] [address] [place], [place] [id number] Social History Tobacco Use Types Packs/Day Years [...] BY PCR (01/24/2022 14:50 EDT) [facility] Method Time Signature Salmonella PCR Negative Negative 01/25/2022 [facility] MEDICAL 22:03 EDT CENTER LABORATORY SERVICES Shigella/Enteroin Negative Negative 01/25/2022 [facility] vasive E. coli 22:03 EDT CENTER LABORATORY SERVICES HN LAB Negative Negative 01/25/2022 [facility] CAMPYLOBACTER PCR 22:03 EDT CENTER LABORATORY SERVICES Shiga Toxin PCR Negative Negative 01/25/2022 [facility] MEDICAL 22:03 EDT CENTER LABORATORY SERVICES Specimen Anatomical Collection Method Collection Time Receive d Time (Source) Location / / Volume Laterality Feces SPECIMEN FROM 01/24/2022 14:50 01/25/2022 [facility] / Unknown EDT 17:30 EDT Provider Outr Resulting Lab MICROBIOLOGY - GENERAL ORD ERABLES Performing Organization Address City/State/[facility] Code Phon e Number [facility] MEDICAL CENTER LABORATORY [address] [place] [address] SERVICES documented in this encounter Visit Diagnoses Not on filedocumented in this encounter Care Teams Field Attendant Relationship Specialty Start Date End Date Jennifer Gomez, NAMITA PCP - General 05/10/15 [facility] [address] [place] [address] documented as of this encounter
--- OUTSIDE RECORDS SUMMARY | 2022-06-06 11:15 | XMS_ITS | Encounter Summary ---
:1945 Author Organization [facility] Address [facility] [place] [address] Care Team Providers Name Role Phone France Lam MD Primary Care Provider Reason for Visit Reason Onset Date Comments TeleHealth 01/08/2020 Appt 01/09/20 Encounter Details Date Type Department Care Team Description 01/08/2020 Telephone Neurology at [facility] Efrain Nicole PA TeleHealth (Appt [facility] 12/30 ) [place] [address] NEUROLOGY [phone] [place], [place] [address] (Wo rk) Social History Tobacco [...] 06/30/2022 Office Visit Endocrinology Alan Terrell MD [facility] ER ENDOCRINOLOGY [place], [place] [address] (Wo rk) documented as of this encounter Visit Diagnoses Not on filedocumented in this encounter Care Teams Filemaker Developer Relationship Specialty Start Date End Date France Lam MD PCP - General 05/02/13 02/04/20 [address] [place] [address] documented as of this encounter
--- OUTSIDE RECORDS SUMMARY | 2022-06-06 11:15 | XMS_ITS | Encounter Summary ---
:1945 [place] [address] Care Team Providers Name Role Phone France Lam MD Primary Care Provider Encounter Details Date Type Department Care Team Description 12/29/2019 Ancillary Procedure Radiology Library at Ivette Salas [facility]ANIE [facility] [place] [address] [place] [address] [phone] (Wo rk) Social History Tobacco Use Types Packs/Day Years Used Date Smoking Tobacco: Every Day Cigarettes 0.5 Cigars Sex Assigned at Date Recorded Not on file documented as of this encounter Plan of Treatment Upcoming Encounters Date Type Specialty Care Team Description 06/30/2022 Office Visit Endocrinology EchAlan coley MD [facility] ENDOCRINOLOGY [place], [place] [address] (Wo rk) documented as of [...] se is for storage only. Alfreda Salas CHIEF CLOTH FINISHING RANGE OPERATOR [facility] FILM LIBRARY ORDERABLES Performing Organization Address City/State/ZIP Code Phon e Number [facility] [place], [place] documented in this encounter Visit Diagnoses Not on filedocumented in this encounter Care Teams Optometric Technologist Relationship Specialty Start Date End Date France Lam MD PCP - General 05/02/13 02/04/20 [address] [place] [address] documented as of this encounter
--- OUTSIDE RECORDS SUMMARY | 2022-06-06 11:15 | XMS_ITS | Encounter Summary ---
:1945 Author Organization [facility] [place] [address] Care Team Providers Name Role Phone France Lam MD Primary Care Provider Encounter Details Date Type Department Care Team Description 12/08/2019 Telephone Neurosurgery at [facility] [place] [address] Social History Tobacco Use Types Packs/Day Years Used Date Smoking Tobacco: Every Day Cigarettes 0.5 Cigars Sex Assigned at Date Recorded Not on file documented as of this encounter Miscellaneous Notes Telephone Encounter - Elza Bradshaw - 12/22/2019 6:[address] in eDH Telephone Encounter - Elza Bradshaw - 12/18/2019 3:43 PM EDT Left message at [facility] requesting they call back to advise if patient has been scheduled for CT. Telephone Encounter - Sarah Boucher - 12/08/2019 3:[address] order to [facility] to schedule, 12/16-12/18 for 12/22 TOV scheduled w/[facility] Telephone Encounter - Sarah Boucher - 12/08/2019 9:50 AM EDT RN, please put in CT order external=Josue Pt's called not able to come to [facility] on 12/[address] requested to have CT locally at [facility] call w/results. documented in this encounter Plan of Treatment Upcoming Encounters Date Type Specialty Care Team Description 06/30/2022 Office Visit Endocrinology GenietAlan MD [facility] ER ENDOCRINOLOGY [place], [place] [address] (Wo rk) documented as of this encounter Visit Diagnoses Not on filedocumented in this encounter Care Teams Runner Man Relationship Specialty Start Date End Date France Lam MD PCP - General 05/02/13 02/04/20 [address] [place] [address] documented as of this encounter
--- OUTSIDE RECORDS SUMMARY | 2022-06-06 11:15 | XMS_ITS | Encounter Summary ---
:1945 Author Organization [facility] [place] [address] Care Team Providers Name Role Phone Jovany Lott MD Primary Care Provider Reason for Visit Consultation (Routine) - Closed Specialty Diagnoses / Procedures Referred By Contact Refer red To Contact Cardiology Diagnoses ST elevation (STEMI) myocardial infarction of unspecified site Hyperlipidemia, unspecified Dawit Mejia MD [place], [place] [address] [place] [address] DR [place], [place] CARDIOLOGY D EPT [address] [place] [address] Fax: Referral ID Status Reason Start Date Expiration Date Visits V isits Requested Authorized [id number] Closed Consult, Test 02/10/2020 02/09/2021 [facility] PCP Updated and/or Approved Encounter Details Date Type Department Care Team Description 03/12/2020 TH Visit Cardiology at [facility] Melina Payan Fredrickson type IIa hyperli poproteinemia; (TeleHealth) [facility] Hyperglycemia; [facility] Elevated TSH; [place], [place] CENTER Hypothyroidism, acquired [id number] CARDIOLOGY DEPT [phone] [place], [place] [address] Social History Tobacco Use Types Packs/Day Years Used Date Smoking Tobacco: Former Cigarettes 0.5 Quit : 11/29/2019 Cigars Smokeless Tobacco: Former Comments: Quit chew tobacco years and y ears ago Sex Assigned at Date Recorded Not on file documented as of this encounter Progress Notes Melina Payan MD - 03/12/2020 1:00 PM EDT [facility]--Initial [...] Social History: 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 [...] medications for this visit. 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 fib, cardiogenic shock, and a CVA. He has multiple cardiovascular risk factors including peripheral artery disease, hyperlipidemia (elevated LDL, depressed HDL), a 60-jrbb-igho history of smoking, and prediabetes. Jovany quit [...] Endocrinology Alan Terrell MD [facility] ENDOCRINOLOGY [place], [place] [address] (Wo rk) documented as of this encounter Visit Diagnoses Diagnosis Tiny type IIa hyperlipoproteinemi a Pure hypercholesterolemia Hyperglycemia Other abnormal glucose Elevated TSH Other abnormal blood chemistry Hypothyroidism, acquired Unspecified hypothyroidism documented in this encounter Care Teams Public Health Social Worker Relationship Specialty Start Date End Date Jovany Lott MD PCP - General Family Medicine 02/05/20 [address] [place] [address] documented as of this encounter
--- OUTSIDE RECORDS SUMMARY | 2022-06-06 11:15 | XMS_ITS | Encounter Summary ---
:1945 Author Organization [facility] [place] [address] Care Team Providers Name Role Phone Jovany Lott MD Primary Care Provider Encounter Details Date Type Department Care Team Description 03/10/2022 Ancillary Procedure Radiology Library at Jovany Lott MD [facility] [address] [place] [facility] [address] [place] [address] [phone] Social History Tobacco Use Types Packs/Day Years Used Date Smoking Tobacco: Former Cigarettes 0.5 Quit : 11/29/2019 Cigars Smokeless Tobacco: Former Sex Assigned at Date Recorded Not on file documented as of this encounter Plan of Treatment Upcoming Encounters Date Type Specialty Care Team Description 06/30/2022 Office Visit Endocrinology EchAlan coley MD [facility] ENDOCRINOLOGY [place], [place] [address] (Wo rk) documented as of [...] Code Phon e Number [facility] DH [place], [place] documented in this encounter Visit Diagnoses Not on filedocumented in this encounter Care Teams Corporate Auditor Relationship Specialty Start Date End Date Jovany Lott MD PCP - General Family Medicine 02/05/20 [place] [address] documented as of this encounter
--- OUTSIDE RECORDS SUMMARY | 2022-06-06 11:15 | XMS_ITS | Encounter Summary ---
:1945 Author Organization [facility] [place] [address] Care Team Providers Name Role Phone Jovany Lott MD Primary Care Provider Reason for Visit Reason Onset Date Comments Follow-up 06/15/2020 Tobacco Treatment Encounter Details Date Type Department Care Team Description 06/15/2020 Telephone Vascular Surgery at Ryan Tran low-up (Tobacco [facility] Sukumar, RN Treatment) [place] [address] Social History Tobacco Use Types Packs/Day [...] updated. Ryan Tran, MSN, RN-BC, NCTTP Tobacco Field Technician [facility] Pager #[phone] documented in this encounter Plan of Treatment Upcoming Encounters Date Type Specialty Care Team Description 06/30/2022 Office Visit Endocrinology Alan Terrell MD [facility] ENDOCRINOLOGY [place] [address] (Wo rk) documented as of this encounter Visit Diagnoses Not on filedocumented in this encounter Care Teams Boarder Machine Relationship Specialty Start Date End Date Jovany Lott MD PCP - General Family Medicine 02/05/20 [address] [place] [address] documented as of this encounter
--- OUTSIDE RECORDS SUMMARY | 2022-06-06 11:15 | XMS_ITS | Encounter Summary ---
:1945 Author Organization [facility] Address [address] [place] [address] Care Team Providers Name Role Phone Jennifer Gomez DATA COLLECTION INTERVIEWER Primary Care Provider Encounter Details Date Type Department Care Team Description 03/19/2019 Results Only [facility] Angel Luis Lott MD [phone] [address] [place], [place] [phone] (Wo rk) Social History Tobacco Use Types [...] Component Value Ref Test Analysis Performed At [facility] Method Time Signature Pathology SURGICAL PATHOLOGY REPORT [facility] MEDICAL Report: Reports generated via electronic interface contain [facility] data; CENTER however they are lacking the format of the original report. LABORATORY Caution should be taken when reading/interpreting unformat pepper reports. SERVICES Name: ? ANGEL LUIS HI ? Accession #: ? [id number] ? : ? 1945 (Age: 8 3) [...] and entirely submitted in 1. ESTEFANY Brown ([facility]) 03/20/2019 5:33 PM End of Report Specimen Anatomical Collection Method Collection Time Receive d Time (Source) Location / / Volume Laterality 03/19/2019 16:47 03/20/2019 EDT 16:47 EDT Angel Luis Lott MD PATHOLOGY ORDERABLES Performing Organization Address City/State/ZIP Code Phon e Number [facility] LABORATORY [address] [place] [address] SERVICES documented in this encounter Visit Diagnoses Not on filedocumented in this encounter Care Teams Food Checkers And Cashiers Supervisor Relationship Specialty Start Date End Date Jennifer Gomez NP PCP - General 05/10/15 [facility] [address] [place] [address] documented as of this encounter
--- OUTSIDE RECORDS SUMMARY | 2022-06-06 11:15 | XMS_ITS | Encounter Summary ---
:1945 Author Organization [facility] [place] [address] Care Team Providers Name Role Phone France Lam MD Primary Care Provider Reason for Visit Reason Onset Date Comments TeleHealth 01/12/2020 Encounter Details Date Type Department Care Team Description 01/12/2020 Telephone Neurosurgery at [facility] Alfreda Salas, TeleHealth [facility] [place] [address] [facility] [phone] [place], [place] [address] (Wo rk) Social History Tobacco [...] Terrell MD [facility] ER ENDOCRINOLOGY [place], [place] [address] (Wo rk) documented as of this encounter Visit Diagnoses Not on filedocumented in this encounter Care Teams Real Estate Agent/Broker Relationship Specialty Start Date End Date France Lam MD PCP - General 05/02/13 02/04/20 [address] [place] [address] documented as of this encounter
--- OUTSIDE RECORDS SUMMARY | 2022-06-06 11:15 | XMS_ITS | Encounter Summary ---
:1945 Author Organization [facility] [place] [address] Care Team Providers Name Role Phone Jovany Lott MD Primary Care Provider Encounter Details Date Type Department Care Team Description 10/05/2020 Notes Only Cardiology Merlin Sanchez MD [facility] [place] [address] CARDIOLOGY DEPT. [phone] [place], [place] [address] (Wo rk) Social History Tobacco [...] with WM FLX Merlin Sanchez MD [facility] Pager 2020 documented in this encounter Plan of Treatment Upcoming Encounters Date Type Specialty Care Team Description 06/30/2022 Office Visit Endocrinology EchtAlan MD [facility] ER [address] [place], [place] [address] (Wo rk) documented as of this encounter Visit Diagnoses Not on filedocumented in this encounter Care Teams Client Delivery Manager Relationship Specialty Start Date End Date Jovany Lott MD PCP - General Family Medicine 02/05/20 [address] [place] [address] documented as of this encounter
--- OUTSIDE RECORDS SUMMARY | 2022-06-06 11:15 | XMS_ITS | Encounter Summary ---
:1945 Author Organization [facility] Address [facility] [place] [address] Care Team Providers Name Role Phone France Lam MD Primary Care Provider Encounter Details Date Type Department Care Team Description 12/26/2019 TH Visit Cardiology at [facility] Merlin Sanchez V, Claudication from peripheral vascular disease, left ; (TeleHealth) [facility] Hyperlipidemia, unspecified hyperlipidem ia type; Drive [facility] Acute ST elevation myocardia l infarction (STEMI) of inferior wall; [place], [place] CENTER Acute systolic CHF (congestive heart reid lure), NYHA class 3, MILVIA/AHA stage C [address] CARDI[address] DEPT. [phone] [place] [address] Social History Tobacco Use Types Packs/Day Years [...] best is to differ this conversation until usp OAC strategy has been set. Specifically, if this is being treated as a provoked dvt/pe, then would re-evaluate to coordinated with OAC discontinuation. I discussed the above findings with the patient and his both of whom appear to understand and is in agreement with the plan going forward. Merlin Sanchez M.D., F.A.C.C. yarn carrier Pager 2020 >50% of the 15 minute evaluation was spent in direct conversation/counselling documented in this encounter Plan of Treatment Upcoming Encounters Date Type Specialty Care Team Description 06/30/2022 Office Visit Endocrinology Alan Terrell MD [facility] MEDICAL [facility] ENDOCRINOLOGY [place], [place] [address] (Wo rk) documented as of this encounter Visit Diagnoses Diagnosis Claudication from peripheral vascular di sease, left Peripheral vascular disease, unspecified Hyperlipidemia, unspecified hyperlipidem ia type Acute ST elevation myocardial infarction (STEMI) of inferior wall Acute systolic CHF (congestive heart reid lure), NYHA class 3, MILVIA/AHA stage C Acute systolic heart failure documented in this encounter Care Teams Refined Syrup Operator Relationship Specialty Start Date End Date France Lam MD PCP - General 05/02/13 02/04/20 [address] [place] [address] documented as of this encounter
--- OUTSIDE RECORDS SUMMARY | 2022-06-06 11:15 | XMS_ITS | Encounter Summary ---
:1945 Author Organization [facility] Address [address] [place] [address] Care Team Providers Name Role Phone Jennifer Gomez COMMUTATOR V RING ASSEMBLER Primary Care Provider Encounter Details Date Type Department Care Team Description 09/07/2020 Lab Requisition [facility] Outr Resulting Lab, Pathology & Laboratory Provider [facility] [address] [id number] Social History Tobacco Use Types Packs/Day Years [...] City/State/ZIP Code Phon e Number [facility] [address] [place] [address] SERVICES COVID-19 TESTING (09/07/2020 9:45 EST) Analysis Performed At Patho logist Time Signature COVID-19 Negative Negative 09/08/2020 [facility] rt-PCR Result 14:27 EST CENTER [...] and its performa nce characteristics determined by [facility]. It has not been cleared [...] This test is based on the [facility] COVID-19 E mergency Use Authorization (EUA) assay, with minor modification as defined by the FDA Performed on the OrthoFio 7 Pro RT-PCR System. Performing Lab [facility] Lab 09/08/2020 14:27 EST [facility] SERVICES Specimen Anatomical Collection Method Collection Time Receive d Time (Source) Location / / Volume Laterality Swab 09/07/2020 9:45 09/07/2020 EST 20:56 EST Provider Outr Resulting Lab MICROBIOLOGY - GENERAL ORD ERABLES Performing Organization Address City/State/ZIP Code Phon e Number [facility] [address] [place] [address] SERVICES documented in this encounter Visit Diagnoses Not on filedocumented in this encounter Care Teams Vibrator Equipment Tester Relationship Specialty Start Date End Date Jennifer Gomez NP PCP - General 05/10/15 [facility] [address] [place] [address] documented as of this encounter
--- OUTSIDE RECORDS SUMMARY | 2022-06-06 11:15 | XMS_ITS | Encounter Summary ---
:1945 Author Organization [facility] Address [address] [place] [address] Care Team Providers Name Role Phone Unavailable Primary Care Provider Unavailable Encounter Details Date Type Department Care Team Description 09/02/2003 Results Only [facility] - Otis Patel MD conversion [address] [facility] [address] [place], [place] [address] [place] [phone] (Wo rk) Social History Tobacco Use Types Packs/Day Years Used Date Smoking Tobacco: Never Assessed Sex Assigned at Date Recorded Not on file documented as of this encounter Plan of Treatment Not on filedocumented as of this encounter Procedures Procedure Name Priority Date/Time Associated Diagnosis Comme [facility] SURGICAL PATHOLOGY Routine 09/02/2003 0:00 EST Re sults for this procedure are i n the results section. documented in this encounter Results SURGICAL PATHOLOGY (09/02/2003 0:00 EST) Component Value Ref Test Analysis Performed At [facility] Method Time Signature Pathology SURGICAL PATHOLOGY REPORT ZAYNAB MARINELLI Report: Reports generated via electronic interface contain catherinea l data; MARLI MENDOZA however they are lacking the format of the original report. Caution should be taken when reading/interpreting unformatte d reports. Name: ? ANGEL LUIS SALINAS ? Accession #: ? [id number] ? : ? 1945 (Age: 58) ??M [...] of the lesion is recommended. ??(Dr. Jaz weller)/[facility] Microscopic Description: ? The epidermis is hype [...] and cords of similar melanocytes that show labor and employment paralegal maturation with descent. 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 ??(Dr. Mascorro)/[facility] Document reviewed and electronically signed by: Mai [...] entirely submitted in one cassette. ??(Dr. Alejandro jacobsen)/[facility] End of Report Specimen (Source) Anatomical Collection Method Collection Time Re ceived Time Location / / Volume Laterality 09/02/2003 09/03/2003 15:2 7 EST Otis Moss MD PATHOLOGY ORDERABLES Performing Organization Address City/State/ZIP Code Phon e Number [facility] [address] [place] [address] SERVICES [facility] [address] [phone] documented in this encounter Visit Diagnoses Not on filedocumented in this encounter
--- OUTSIDE RECORDS SUMMARY | 2022-06-06 11:15 | XMS_ITS | Encounter Summary ---
:1945 Author Organization [facility] Address [address] [place] [address] Care Team Providers Name Role Phone Jennifer Gomez COUNTY AGRICULTURAL AGENT Primary Care Provider Encounter Details Date Type Department Care Team Description 02/07/2020 Lab Requisition [facility] Outr Resulting Lab, Pathology & Laboratory Provider [facility] [address] [place] [address] Social History Tobacco Use Types [...] TEST (02/07/2020 7:59 EDT) Analysis Performed At [facility] Time Signature COVID-19 NEGATIVE Negative 02/08/2020 [...] Phon e Number [facility] [place], [place] COVID-19 TESTING (02/07/2020 7:59 EDT) Analysis Performed At [facility] Time Signature COVID-19 NEGATIVE Negative 02/08/2020 [...] Administration's Emergency Use Authorization. Performing Lab [employer] 02/08/2020 17:4 7 EDT [facility] SERVICES Specimen Anatomical Collection Method Collection Time Receive d Time (Source) Location / / Volume Laterality Swab 02/07/2020 7:59 02/07/2020 EDT 23:07 EDT Provider Outr Resulting Lab MICROBIOLOGY - GENERAL ORD ERABLES Performing Organization Address City/State/ZIP Code Phon e Number [facility] [address] [place] [address] SERVICES [facility] [place], [place] documented in this encounter Visit Diagnoses Not on filedocumented in this encounter Care Teams Remote Medical Coder Relationship Specialty Start Date End Date Jennifer Gomez NP PCP - General 05/10/15 [facility] [address] [place], [place] [id number] documented as of this encounter
--- OUTSIDE RECORDS SUMMARY | 2022-06-06 11:15 | XMS_ITS | Encounter Summary ---
:1945 Author Organization [facility] [place] [address] Care Team Providers Name Role Phone France Lam MD Primary Care Provider Encounter Details Date Type Department Care Team Description 01/09/2020 TH Visit Neurology at [facility] Efrain Nicole, Intracranial hemorrhage; (TeleHealth) [facility] ESTEFANY Tobacco abuse; Drive [facility] Cerebrovascular accident (CV A) due to embolism of right posterior cerebral artery [facility] [address] NEUROLOGY [phone] [place] [address] Social History Tobacco Use Types Packs/Day Years Used Date Smoking Tobacco: Every Day Cigarettes 0.5 Cigars Sex Assigned at Date Recorded Not on file documented as of this encounter Progress Notes Efrain Nicole PA - 01/09/2020 9:00 AM EDT [facility] [place] [address] t: [phone] / f: [phone] TELEPHONE ENCOUNTER Date of Appointment: 01/09/2020 I [...] -advised vision/eye exam with his local provider ([facility] [place]); consider referral to neuro-ophthalmology here in future [...] Visit Endocrinology Alan Terrell MD [facility] ER ENDOCRINOLOGY [place], [place] [address] (Wo rk) documented as of this encounter Visit Diagnoses Diagnosis Intracranial hemorrhage Unspecified intracranial hemorrhage Tobacco abuse Tobacco use disorder Cerebrovascular accident (CVA) due to em bolism of right posterior cerebral artery documented in this encounter Care Teams Tennis Desk Team Member Relationship Specialty Start Date End Date France Lam MD PCP - General 05/02/13 02/04/20 [address] [place] [address] documented as of this encounter
--- OUTSIDE RECORDS SUMMARY | 2022-06-06 11:15 | XMS_ITS | Encounter Summary ---
:1945 Author Organization [facility] Address [address] [place] [address] Care Team Providers Name Role Phone Jennifer Gomez PRESSURE WASHER Primary Care Provider Encounter Details Date Type Department Care Team Description 02/15/2022 Lab Requisition [facility] [place] Outr Resulting Lab, Pathology & Laboratory Provider [facility] [address] [id number] Social History Tobacco Use Types Packs/Day Years [...] Number [facility] [address] [place] [address] SERVICES documented in this encounter Visit Diagnoses Not on filedocumented in this encounter Care Teams Radio Station Operator Relationship Specialty Start Date End Date Jennifer Gomez, PRESSURE WASHER PCP - General 05/10/15 [facility] [address] [place] [address] documented as of this encounter
--- OUTSIDE RECORDS SUMMARY | 2022-06-06 11:15 | XMS_ITS | Encounter Summary ---
:1945 Author Organization [facility] Address [address] [place] [address] Care Team Providers Name Role Phone Unavailable Primary Care Provider Unavailable Encounter Details Date Type Department Care Team Description 09/15/2003 Results Only [facility] - Otis Patel MD conversion [address] [facility] [address] [place] [address] [place] [address] (Wo rk) Social History Tobacco Use Types [...] Component Value Ref Test Analysis Performed At [facility] Method Time Signature Pathology SURGICAL PATHOLOGY REPORT ZAYNAB MARINELLI Report: Reports generated via electronic interface contain catherinea l data; MARLI MENDOZA however they are lacking the format of the original report. Caution should be taken when reading/interpreting unformatte d reports. Name: ? ANGEL LUIS SALINAS ? Accession #: ? [id number] ? : ? 1945 (Age: 58) ??M ? Collect Date: ? 09/15/2003 ? Location: ? [facility] ? Receive Date: ? 09/16/2003 ? Provider: OTIS MOSS MD Copy to: MALCOM MCGEE RAILWAY SHUNTER ? Final Pathologic Diagnosis: ? Skin of [...] Organization Address City/State/ZIP Code Phon e Number [facility] [address] [place] [address] SERVICES [facility] [address] [place] [address] documented in this encounter Visit Diagnoses Not on filedocumented in this encounter
--- OUTSIDE RECORDS SUMMARY | 2022-06-06 11:15 | XMS_ITS | Encounter Summary ---
:1945 Author Organization [facility] Address [address] [place], [place] [id number] Support Name Relationship Address Phone FRANCI SALINAS Unavailable [address] [facility] [place] [address] FRANCI SALINAS Unavailable [address] [place] [address] [place] [address] Insurance Providers: All historical and current Section Date Range: From patient's date of to the date document was created.This section includes the names of all active insurance providers for the patient. Insurance Type of Plan Start of End of Group Member Insurance Policy P atient's Provider Coverage Name Policy Policy Number ID Provider's Gregg's Relationship Coverage Coverage Telephone Name to Policy Number Gregg [facility] MEDIGAP PLAN- Dec 30, PLAND [id number] [phone] SALINAS WILLIE PATIENT LIFE AND PLAN D D [phone] [place] ANNUITY MEDICARE MEDICARE PART Dec 30, PART B [id number] [phone] WILLIE SALINAS PATIENT (WNR) (M) B 2012 [id number] HN MEDICARE MEDICARE PART May 02, PART A [id number] [phone] RITA WILLIE PATIENT (WNR) (M) A 2010 [id number] 1 HN MUTUAL OF MEDIGAP Jul 02, PLANN [id number] [phone] WILLIE SALINAS PATIENT [place] PLAN N 2019 4 0 HN CO Selected Encounter This section includes the information on record at [place] for the Encounter. Date/Time Encounter Type Encounter [...] this document. The data comes from all [place] facilities. Date Advance Directives Provider Source Jan 15, 2019 ADVANCE DIRECTIVE DISCUSSION [facility]
--- OUTSIDE RECORDS SUMMARY | 2022-06-06 11:15 | XMS_ITS | Encounter Summary ---
:1945 Author Organization [facility] Address [address] [place] [address] Care Team Providers Name Role Phone Jennifer Gomez ATHLETIC SHOE DESIGNER Primary Care Provider Encounter Details Date Type Department Care Team Description 04/24/2022 Lab Requisition [facility] Outr Resulting Lab, Pathology & Laboratory Provider [facility] [address] [address] Social History Tobacco Use Types Packs/Day Years [...] T3, Free 2.8 2.8 - 5.3 04/25/2022 [facility] pg/mL 21:09 EDT CENTER LABORATORY SERVICES Specimen Anatomical Collection Method Collection Time Receive d Time (Source) Location / / Volume Laterality Blood VENOUS BLOOD / 04/24/2022 11:50 Unknown EDT 20:27 EDT Provider Outr Resulting Lab CHEMISTRY & BLOOD GAS CHLOE IBARRA Performing Organization Address City/State/ZIP Code Phon e Number [facility] [address] [place] [address] SERVICES documented in this encounter Visit Diagnoses Not on filedocumented in this encounter Care Teams Accounting Recruiter Relationship Specialty Start Date End Date Jennifer Gomez, ATHLETIC SHOE DESIGNER PCP - General 05/10/15 [facility] [address] [place] [address] documented as of this encounter
--- OUTSIDE RECORDS SUMMARY | 2022-06-06 11:15 | XMS_ITS | Encounter Summary ---
:1945 Author Organization [facility] [place] [address] Care Team Providers Name Role Phone Jovany Lott MD Primary Care Provider Encounter Details Date Type Department Care Team Description 10/12/2020 Notes Only Cardiology at [facility] Willow Callejas RN [facility] [place] [address] Social History Tobacco Use Types Packs/Day [...] want totalk to my doctor at the [place] and do a little more research before [...] Alan Terrell MD [facility] [address] [place], [place] [address] (Wo rk) documented as of this encounter Visit Diagnoses Not on filedocumented in this encounter Care Teams Pump Machine Operator Relationship Specialty Start Date End Date Jovany Lott MD PCP - General Family Medicine 02/05/20 [address] [place] [address] documented as of this encounter
--- OUTSIDE RECORDS SUMMARY | 2022-06-06 11:15 | XMS_ITS | Encounter Summary ---
:1945 Author Organization [facility] Address [address] [place] [address] Care Team Providers Name Role Phone Jennifer Gomez OUTSIDE SALES PROFESSIONAL Primary Care Provider Encounter Details Date Type Department Care Team Description 03/19/2019 Hospital Encounter [facility] Unknown, Provider, [facility] 0 [facility] [phone] [place] [address] (Work) [phone] Social History Tobacco Use Types Packs/Day Years Used Date Smoking Tobacco: Never Assessed Sex Assigned at Date Recorded Not on file documented as of this encounter Discharge Disposition Disposition Code Departure Means Destination Home or Self [facility] documented in this encounter Plan of Treatment Not on filedocumented as of this encounter Visit Diagnoses Not on filedocumented in this encounter Care Teams Director Of Workforce Development Relationship Specialty Start Date End Date Jennifer Gomez, OUTSIDE SALES PROFESSIONAL PCP - General 05/10/15 [facility] [address] [place], [place] [address] documented as of this encounter
--- OUTSIDE RECORDS SUMMARY | 2022-06-06 11:15 | XMS_ITS | Encounter Summary ---
:1945 Author Organization [facility] Address [facility] [place] [address] Care Team Providers Name Role Phone France Lam MD Primary Care Provider Encounter Details Date Type Department Care Team Description 12/30/2019 TH Visit Cardiology at [facility] Faustino Garduno Claudication from peripheral vascular disease, left ; (TeleHealth) [facility] MD Jaquan Hyperlipidemia, unspecified hyperlipidem ia type; Drive [facility] Acute ST elevation myocardia l infarction (STEMI) of inferior wall; [place], [place] Center Acute systolic CHF (congestive heart reid lure), NYHA class 3, MILVIA/AHA stage C; [address] [place], [place] Intracranial hemorrhage; [phone] [id number] Atrial fibrillation, unspecified type Social History Tobacco [...] with ICH, bilateral PE; paroxysmal atrial fibrillation [[id number]: 5]; PAD; HLD; HTN; smoking and PFO,who [...] a non-culprit artery. S/P DESx3 in the [id number] RCA. Aspiration thrombectomy performed, and integrellin bolus [...] with ICH, bilateral PE; paroxysmal atrial fibrillation [[id number]: 5]; PAD; HLD; HTN; smoking and PFO, [...] 6 months Faustino Garduno MD Time spent: [id number] 0-5min [id number] 6-10min [id number] 11-15min [id number] 16-20min XXXX [id number] 21-30min [id number] 31-40min [id number] 40+ min documented in this encounter Plan of Treatment Upcoming Encounters Date Type Specialty Care Team Description 06/30/2022 Office Visit Endocrinology Alan Terrell MD [facility] [address] [place] [address] (Wo rk) documented as of [...] type documented in this encounter Care Teams Building Surveyor Relationship Specialty Start Date End Date France Lam MD PCP - General 05/02/13 02/04/20 [address] [place] [address] documented as of this encounter
--- OUTSIDE RECORDS SUMMARY | 2022-06-06 11:15 | XMS_ITS | Encounter Summary ---
:1945 Author Organization [facility] Address [address] [place] [address] Care Team Providers Name Role Phone Jennifer Gomez COVERED BUCKLE ASSEMBLER Primary Care Provider Encounter Details Date Type Department Care Team Description 08/26/2021 Lab Requisition [facility] Najma Valladares for other Pathology & M, DO general examination Laboratory Medicine - [address] [place] [id number] Social History Tobacco Use Types Packs/Day Years [...] At Signature Note to The following 09/02/2021 [facility] Patient pathology results 13:09 EST CENTER have been interpreted LABORATO RY by your pathologist SERVICES and may be available to you before your health provider has had the opportunity to review them. Please allow time for your provider to receive these results and explore management options, if applicable. Final A. RECTUM, POLYP, BIOPSY : 09/02/2021 [facility] Diagnosis - Polypoid submucosal anal glands. 13:09 EST CENTER - Overlying rectal mucosa negative for dysplasia. LABORATORY - See comment. SERVICES Diagnosis This rectal polyp shows a cantor bmucosal collection of anal duct glands causing a polypoid configuration. The morphology and the immunohistochemical profile are consistent with a benign (non-neoplastic) pro 09/02/2021 [facility] Comment cess. Engrosser slides of this case were reviewed at the gastrointestinal/liver intradepartmental consultation conference. : [facility] ANTIBODY(CLONE)(BLOCK):RESULT SERVICES CK7 (RN7, Leica) (A1): Strongly positive PAX-8 (MRQ-50, [place]) (A1): Negative NKX3.1 (Rabbit Polyclonal, [employer]) (A1): Negative GATA3 (L50-823, [place]) (A1): Negative NOTE: One or more of [...] laboratory testing. Attestation By the signature 09/02/2021 [facility] L Electronically below, the attending 13:09 [facility] signed by physician certifies LABORATORY Jacobo, that they have 1) SERVICES Tory roberts MD on personally conducted 09/02/2021 at a gross and/or 1309 microscopic examination of the described specimen(s), and/or personally interpreted the results of laboratory testing of the described specimen(s), and 2) personally rendered or confirmed the above diagnosis. Clinical Flex sigmoidoscopy; 09/02/2021 [facility] AL History diverticulosis, polyp : [facility] SERVICES Gross A. 09/02/2021 [facility] Description Received in formalin mark d with proper patient identification (initials M, J) and rectal polyp is a marr-brown polyp, 0.6 x 0.5 x 0.4 cm. Bisected and entirely submitted in A1. 13: [facility] ESTEFANY NICHOLS(ASCP) 08/26/2021 16:41 SERVICES Performing [facility] 09/02/2021 [facility] AL Lab 13:09 [facility] SERVICES Scanned 09/02/2021 [facility] Images 13:09 [facility] SERVICES Specimen Anatomical Collection Method Collection Time Receive d Time (Source) Location / / Volume Laterality Tissue SPECIMEN FROM 08/26/2021 8:45 08/26/2021 RECTUM / Unknown EST 16:37 EST Najma Valladares DO PATHOLOGY ORDERABLES Performing Organization Address City/State/ZIP Code Phon e Number [facility] [address] [place] [address] SERVICES documented in this encounter Visit Diagnoses Diagnosis Encounter for other general examination documented in this encounter Care Teams Geospatial Developer Relationship Specialty Start Date End Date Jennifer Gomez NP PCP - General 05/10/15 [facility] [address] [place], [place] [id number] documented as of this encounter
--- OUTSIDE RECORDS SUMMARY | 2022-06-06 11:15 | XMS_ITS | Encounter Summary ---
:1945 Author Organization [facility] [place] [address] Care Team Providers Name Role Phone France Lam MD Primary Care Provider Encounter Details Date Type Department Care Team Description 12/18/2019 Ancillary Procedure Radiology Library at Debi Lam [facility] [address] [place] [id number] [place] [phone] Social History Tobacco Use Types Packs/Day Years Used Date Smoking Tobacco: Every Day Cigarettes 0.5 Cigars Sex Assigned at Date Recorded Not on file documented as of this encounter Plan of Treatment Upcoming Encounters Date Type Specialty Care Team Description 06/30/2022 Office Visit Endocrinology Alan Terrell MD [facility] [address] [place], [place] [address] (Wo rk) documented as of [...] is for storage only. France Lam MD [facility] FILM LIBRARY ORDERABLES Performing Organization Address City/State/ZIP Code Phon e Number [facility] [place] documented in this encounter Visit Diagnoses Not on filedocumented in this encounter Care Teams Drafting Technician Relationship Specialty Start Date End Date France Lam MD PCP - General 05/02/13 02/04/20 [address] [place] [address] documented as of this encounter
--- OUTSIDE RECORDS SUMMARY | 2022-06-06 11:15 | XMS_ITS | Clinical Summary ---
:1945 Author Organization [facility] [place] [address] Care Team Providers Name Role Phone Jovany Lott MD Primary Care Provider Allergies Active Allergy Reactions Severity Noted Date Comments Penicillins 05/13/2013 Pt doesn't gely mber reaction Wafpqji-Lza-Fzz Reductase 05/13/2013 St iff neck, upset stomach, [...] Office Visit Endocrinology Echt, Alan Beatty MD [facility] [address] ENDOCRINOLOGY [place], [place] [address] (Wo rk) Health Maintenance Due [...] Organization Address City/State/ZIP Code Phon e Number [place], [place] from Last 3 Months Insurance Payer Benefit Plan / Subscriber ID Effective Dates Phone Addre ss Type Group MEDICARE MEDICARE PART [id number] 2019-Prese [phone] JUAN MD JUST[place] [id number] [place] [id number] 2018-Presen [employer] [place] [id number] Advance Directives Latest Code Status on File [...] capacity to make decision: Yes Care Teams Vat House Laborer Relationship Specialty Start Date End Date Jovany Lott MD PCP - General Family Medicine 02/05/20 [address] [place] [phone]
--- OUTSIDE RECORDS SUMMARY | 2022-06-06 11:15 | XMS_ITS | Encounter Summary ---
:1945 Author Organization [facility] Address [facility] [place] [address] Care Team Providers Name Role Phone Jovany Lott MD Primary Care Provider Encounter Details Date Type Department Care Team Description 08/31/2020 TH Visit Cardiology at [facility] Faustino Garduno Atrial fibrillation, unspeci fied type (Primary Dx); (TeleHealth) [facility] MD Jaquan Acute ST elevation myocardial infarction (STEMI) of inferior wall; Drive [facility] Acute systolic CHF (congesti ve heart failure), NYHA class 3, MILVIA/AHA stage C; [place], [place] Center Hyperlipidemia, unspecified hyperlipidem ia type; [phone] [place], [place] Intracranial hemorrhage; [phone] PFO (patent foramen ovale); [phone] Claudication fr om peripheral vascular disease, left [...] with ICH, bilateral PE; paroxysmal atrial fibrillation [[id number]: 5]; PAD; HLD; HTN; smoking and PFO,who [...] appointment with Dr. Faustino Chou at the [facility]. However, he has not grossly [...] a non-culprit artery. S/P DESx3 in the [id number] RCA. Aspiration thrombectomy performed, and integrellin bolus [...] with ICH, bilateral PE; paroxysmal atrial fibrillation [[id number]: 5]; PAD; HLD; HTN; smoking and PFO, [...] Will also discuss further with his local fiscal services manager, Dr. Mejia. 3. Bilateral PE - Case discussed with Dr. Sanchez above; likely provoked in lieu of his prolonged hospitalization. He has completed at least 6 months of oral A/C (coinciding treatment for his afib). 4. PAD - Continue optimal medical therapy for now. Will place referral for SET/walking program. F/U 3 months Faustino Garduno MD Time spent: 35 minutes Addendum 09/13/20: Called [phone] or [phone] and was able to speak to Dr. Faustino Chou. Pt also sees Dr. Lott in [facility] for local primary care needs. Dr. 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 5RBCs also noted on urinanalysis that subsequently cleared on repeat testing. documented in this encounter Plan of Treatment Upcoming Encounters Date Type Specialty Care Team Description 06/30/2022 Office Visit Endocrinology EchtAlan MD [facility] ENDOCRINOLOGY [place], [place] [address] (Wo rk) documented as of [...] unspecified documented in this encounter Care Teams Fumigator And Sterilizer Relationship Specialty Start Date End Date Jovany Lott MD PCP - General Family Medicine 02/05/[address] [place] [address] [place] [address] documented as of this encounter
--- OUTSIDE RECORDS SUMMARY | 2022-06-06 11:15 | XMS_ITS | Encounter Summary ---
:1945 Author Organization [facility] [place] [address] Care Team Providers Name Role Phone France Lam MD Primary Care Provider Reason for Visit Reason Onset Date Comments TeleHealth 12/22/2019 Appt 12/23/19 Encounter Details Date Type Department Care Team Description 12/22/2019 Telephone [place] [facility] Alfreda Salas TeleHealth (Appt [facility] Devin Sebastian, HIDE STRETCHER HAND 12/23/19) [place] [address] [facility] [phone] [place] [address] Social History Tobacco Use Types Packs/Day [...] 06/30/2022 Office Visit Endocrinology Alan Terrell MD [facility] ER [address] [place], [place] [address] (Wo rk) documented as of this encounter Visit Diagnoses Not on filedocumented in this encounter Care Teams Weigher Packing Relationship Specialty Start Date End Date France Lam MD PCP - General 05/02/13 02/04/20 [address] [place] [address] documented as of this encounter
--- OUTSIDE RECORDS SUMMARY | 2022-06-06 11:15 | XMS_ITS | Encounter Summary ---
:1945 Author Organization [facility] [place] [address] Care Team Providers Name Role Phone Jovany Lott MD Primary Care Provider Encounter Details Date Type Department Care Team Description 11/10/2020 Telephone Cardiology at [facility] [place] [place] Wilver Davey [facility] [place] [address] Social History Tobacco Use Types Packs/Day [...] 06/30/2022 Office Visit Endocrinology Alan Terrell MD [facility] ER ENDOCRINOLOGY [place], [place] [address] (Wo rk) documented as of this encounter Visit Diagnoses Not on filedocumented in this encounter Care Teams Gut Sorter Relationship Specialty Start Date End Date Jovany Lott MD PCP - General Family Medicine 02/05/20 [place] [phone] documented as of this encounter
--- OUTSIDE RECORDS SUMMARY | 2022-06-06 11:15 | XMS_ITS | Encounter Summary ---
:1945 Author Organization [facility] [place] [address] Care Team Providers Name Role Phone France Lam MD Primary Care Provider Encounter Details Date Type Department Care Team Description 01/16/2020 Telephone Vascular Surgery at [facility] Ryan Tran, [place] [address] Social History Tobacco Use Types Packs/Day [...] fidelina. 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
--- OUTSIDE RECORDS SUMMARY | 2022-06-06 11:16 | XMS_ITS | Encounter Summary ---
:1945 Author Organization [facility] [place] [address] Care Team Providers Name Role Phone France Lam MD Primary Care Provider Reason for Referral Consultation (Routine) - Specialty Diagnoses / Procedures Referred By Contact Refer red To Contact Cardiology Diagnoses Acute ST elevation myocardial infarction (STEMI) of inferior wall Darrell Glasgow MD [facility] [place] [address] Referral ID Status Reason Start Date Expiration Date Visits V isits Requested Authorized [id number] Consult, 12/08/2019 06/05/2020 1 1 Test & Treat Consultation (Routine) - Closed Specialty Diagnoses / Referred By Contact Referred To Contact Procedures Cardiac Rehabilitation Diagnoses ST elevation myocardial infarction involving right coronary artery Gretchen Yoon, Cardiac Rehab, [address] [place] [phone] Fax: Referral ID Status Reason Start Date Expiration Date Visits V isits Requested Authorized [id number] Closed Consult, 12/08/2019 06/05/2020 36 36 Test & Treat Reason for Visit Auth/Cert Specialty Diagnoses / Procedures Referred By Contact Refer red To Contact Diagnoses STEMI (ST elevation myocardial infarction) STEMI Procedures CARDIAC CATHETERIZATION Referral ID Status Reason Start Date Expiration Date Visits Requ ested Visits Authorized [id number] 1 1 Encounter Details Date Type Department Care Team Description 11/29/2019 - Hospital Encounter Cardiac Special YoungBarbra MD [facility] [place] [address] ST elevation myocardial infarction invol ving left main coronary artery; 12/08/2019 Care Unit Paris Lozano MD [facility] [place] [address] ST elevation myocardial infarction invol ving right coronary artery; [facility] Edema of upper extremity; Hospital Intracranial hemorrhage; [facility] Paroxysma l atrial fibrillation; Drive Acute pulmonary embolism, un specified pulmonary embolism type, unspecified whether acute cor pulmonale present; [place], [place] Acute ST elevat ion myocardial infarction (STEMI) of inferior wall [id number] Social History Tobacco Use Types Packs/Day Years [...] months on: antiplatelet therapy at discretion of grinding and spraying supervisor - Repeat TTE in 3 months to reassess LV function - Repeat BMP in 1-2 weeks given recent start lisinopril - Referred to lipid clinic for consideration of PCSK-9 inhibitor given STEMI with intolerance of statins - Started on amiodarone this admission for recurrent rapid atrial flutter with rates ~170, recommendcontinued assessment of necessity of rhythm control strategy with grinding and spraying supervisor - Amiodarone monitoring recommendations as below - [...] please contact your inpatient physician through the [facility] Cam Maker . Issues after hours and on [...] took two full strength aspirinand came to [facility] ED. At there was found to [...] and Compazine. He was transferred directly to [facility] via [facility] for further management. Patient had an emergent PCI with 3 MACARIO stents placed to his RCA, with mild disease of LCX (report pending) at [facility]. He was found to be persistently hypotensive [...] drip as described above. On arrival at [facility] he was taken for cardiac cath where [...] priority for the procedure was Emergent. [facility] the [facility] was [facility] [...] by: Estefani Harris [facility] ([phone]), at 11/29/2019 4:[address] Head wo [...] Luis Barboza MD, [facility] ([phone]), at 11/30/2019 12:[address] Head wo Contrast (Generic) (Exam End: 11/30/2019 4:36 PM) Impression Head CT: Stable hemorrhage in the region of the left optic tract. CTA: Negative exam. No abnormal vasculature in the area of hemorrhage. Thank you for letting us participate in the care of this patient. For questions regarding this report, please contact the number below. Angiogram [place] (Exam End: 11/30/2019 4:36 PM) [...] Luis Barboza MD, [facility] ([phone]), at 11/30/2019 5:04 PM MRI Brain wo [...] Luis Barboza MD, [facility] ([phone]), at 12/01/2019 8:02 PM XR Chest One [...] by: Merari Collins [facility] ([phone]), at 12/01/2019 3:53 PM XR Chest One [...] by: Roselyn Luciano [facility] ([phone]), at 12/04/2019 6:16 PM MRI Brain wwo Contrast (Generic) (Exam End: 12/05/2019 7:59 PM) Impression No significant interval change. Thank you for letting us participate in the care of this patient. For questions regarding this report, please contact the number below. Electronically signed by: Merari Collins [facility] ([phone]), at 12/05/2019 10:[address] Head wo [...] by: Merari Collins [facility] ([phone]), at 12/06/2019 10:06 PM Pending Studies and Lab Data: N/A Discharge Conditions/Prognosis: stable Discharge to: home Updated Allergies/ADRs: Allergies Allergen Reactions ??? Penicillins Pt doesn't remember reaction ??? Otfndhn-Dhp-Dca Reductase Inhibitors Stiff neck, upset stomach, back [...] medications at another hospital and then at [facility] you had a stent placed in a [...] FOR ONE MONTH AND THEN STOP. Your grinding and spraying supervisor may tell you to start this medication again after one year. Clopidogrel (Plavix) 75 mg daily - This medication will help prevent clots from forming in your blood, which will help protect the stent that was placed in your heart vessel. TAKE THIS FOR ONE YEAR ANDTHEN DISCUSS WITH YOUR CHILD PROTECTIVE SERVICES SOCIAL WORKER WHETHER TO STOP. Amiodarone 400mg twice daily [...] follow up: Your primary care provider and grinding and spraying supervisor will manage your blood thinner (apixaban). You do not need lab monitoring of this medication. Diet: Please consume a healthy diet low in cholesterol Follow up Appointments: 12/10/2019 at 3:10PM with PCP Angel Luis Lott Future Appointments Date Time Provider Department Center 12/23/2019 1:30 PM Alfreda Salas APRN [facility] [id number] 12/26/2019 9:40 AM Merlin Sanchez MD [facility] CARD 4A [facility] 12/30/2019 3:40 PM Gretchen Yoon MD [address] Future Appointments and Orders Future Appointments and Orders Future Appointments Provider Department Dept Phone 12/23/2019 1:30 PM Alfreda Salas APRN Neurosurgery at [facility] Arrive at: Home [phone] Please do not come in for this visit. Your provider will call you at the number you provided. 12/26/2019 9:40 AM Merlin Sanchez MD Cardiology at [facility] Arrive at: Home [phone] Please do not come in for this visit. Your provider will call you at the number you provided. 12/30/2019 3:40 PM Gretchen Yoon MD Cardiology at [facility] Arrive at: Home [phone] Please do not come in for this visit. Your provider will call you at the number you provided. Future Orders Complete By Expires Referral to Cardiac Rehab [[id number] Custom] As directed Process Instructions: If no progress note charted, please enter Clinical details in comments. Scheduling Instructions: Questions: My question or request is: STEMI. Cardiac rehab at [facility] Referral to [facility] [REF43 Custom] As directed Process Instructions: If no progress note charted, please enter Clinical details in comments. Scheduling Instructions: Questions: My question or request is: patient with inferior stemi with history of statin allergy (rash) - please evaluate for psck9 inhibitor. Referral to Home Health - at DISCHARGE [RYF4629 CPT(R)] As directed Process Instructions: Scheduling Instructions: Comments: DOCUMENTATION FOR VNA SERVICES PATIENT'S LOCATION: Angel Luis Corcoran [address] [address] (home) Bark Press Operator's Name: Self In discussion with the attending physician, it is certified that this patient is under his/her care and that MD, or an COMPRESS MACHINE OPERATOR, ELECTRIC DETECTOR OPERATOR, or PA who is working directly with him/her, had a lzpm-dn-kwwx encounter that meets the physician peuv-wq-utoa encounter requirements with this patient on 12/07/2019. [...] CARE AGENCY: [facility], PHONE: [phone] FAX: [phone] Start of care: 24-48 hours after hospital [...] MD [address] / [place] [address] All A agencies which cover the area [...] info: PCP Your PCP: France Lam MD [phone] For questions regarding this document or issues relating to this hospitalization on the Cardiology Service, please contact your inpatient physician through the [facility] Cam Maker . Issues after hours and on weekends will be handled by the Location Director on-call. Patient Instructions: Neurology Your Diagnosis: [...] the neurology clinic at [facility]. See below for the appointment time. If you do not have an appointment, you will be called with a time/date for this appointment. ??? Primary Care Provider: Please follow up with your Primary Care Provider within one to 2 weeks [facility]. General Instructions None Future Appointments and Orders Future Appointments and Orders Future Appointments Provider Department Dept Phone 12/23/2019 1:30 PM Alfreda Salas APRN Neurosurgery at [facility] Arrive at: Home [phone] Please do not come in for this visit. Your provider will call you at the number you provided. 12/26/2019 9:40 AM Merlin Sanchez MD Cardiology at [facility] Arrive at: Home [phone] Please do not come in for this visit. Your provider will call you at the number you provided. 12/30/2019 3:40 PM Gretchen Yoon MD Cardiology at [facility] Arrive at: Home [phone] Please do not come in for this visit. Your provider will call you at the number you provided. Future Orders Complete By Expires Referral to Cardiac Rehab [[id number] Custom] As directed Process Instructions: If no progress note charted, please enter Clinical details in comments. Scheduling Instructions: Questions: My question or request is: STEMI. Cardiac rehab at [facility] Referral to [facility] [REF43 Custom] As directed Process Instructions: If no progress note charted, please enter Clinical details in comments. Scheduling Instructions: Questions: My question or request is: patient with inferior stemi with history of statin allergy (rash) - please evaluate for psck9 inhibitor. Referral to Home Health - at DISCHARGE [IRK2452 CPT(R)] As directed Process Instructions: Scheduling Instructions: Comments: DOCUMENTATION FOR VNA SERVICES PATIENT'S LOCATION: [address] [address] (home) Bark Press Operator's Name: Self In discussion with the attending physician, it is certified that this patient is under his/her care and that MD, or an COMPRESS MACHINE OPERATOR, ELECTRIC DETECTOR OPERATOR, or PA who is working directly with him/her, had a qeui-au-yigm encounter that meets the physician ahld-ia-gvqa encounter requirements with this patient on 12/07/2019. [...] CARE AGENCY: [facility], PHONE: [phone] FAX: [phone] Start of care: 24-48 hours after hospital [...] MD [address] / [place] [address] All A agencies which cover the area [...] Stevens MD PGY-3, Internal Medicine Cardiology S2, #5537 Associated attestation - Shaka Lagos, Paris Lockett MD - 12/09/2019 4:44 PM EDT Cardiology Attending Discharge Addendum I was the assigned attending grinding and spraying supervisor for this clinical encounter. For the purposes [...] complications include novel onset, paroxysmal atrial fibrillation [[id number]: 5] & L-sided diplopia with potential hemineglect [...] My contact information: Paris Matt MD MPH [address] [address] (office); Pager #[phone] Email: [email or web address] documented in this encounter Discharge Instructions Patient InstructionsFiRiki de jesus MD - 12/02/2019 9:56 AM EDT Images from the original note were not included. Why you were hospitalized: You had a heart attack. You received clot-busting medications at another hospital and then at [facility] you had a stent placed in a [...] FOR ONE MONTH AND THEN STOP. Your grinding and spraying supervisor may tell you to start this medication again after one year. Clopidogrel (Plavix) 75 mg daily - This medication will help prevent clots from forming in your blood, which will help protect the stent that was placed in your heart vessel. TAKE THIS FOR ONE YEAR ANDTHEN DISCUSS WITH YOUR CHILD PROTECTIVE SERVICES SOCIAL WORKER WHETHER TO STOP. Amiodarone 400mg twice daily [...] follow up: Your primary care provider and grinding and spraying supervisor will manage your blood thinner (apixaban). You do not need lab monitoring of this medication. Diet: Please consume a healthy diet low in cholesterol Follow up Appointments: 12/10/2019 at 3:10PM with PCP Angel Luis Lott Future Appointments Date Time Provider Department Center 12/23/2019 1:30 PM Alfreda Salas APRN [facility] [id number] [facility] 12/26/2019 9:40 AM Merlin Sanchez MD [facility] CARD 4A [facility] 12/30/2019 3:40 PM Gretchen Yoon MD [facility] CARD 4A [facility] Future Appointments and Orders Future Appointments and Orders Future Appointments Provider Department Dept Phone 12/23/2019 1:30 PM Alfreda Salas APRN Neurosurgery at [facility] Arrive at: Home [phone] Please do not come in for this visit. Your provider will call you at the number you provided. 12/26/2019 9:40 AM Merlin Sanchez MD Cardiology at [facility] Arrive at: Home [phone] Please do not come in for this visit. Your provider will call you at the number you provided. 12/30/2019 3:40 PM Gretchen Yoon MD Cardiology at [facility] Arrive at: Home [phone] Please do not come in for this visit. Your provider will call you at the number you provided. Future Orders Complete By Expires Referral to Cardiac Rehab [[id number] Custom] As directed Process Instructions: If no progress note charted, please enter Clinical details in comments. Scheduling Instructions: Questions: My question or request is: STEMI. Cardiac rehab at [facility] Referral to [facility] [REF43 Custom] As directed Process Instructions: If no progress note charted, please enter Clinical details in comments. Scheduling Instructions: Questions: My question or request is: patient with inferior stemi with history of statin allergy (rash) - please evaluate for psck9 inhibitor. Referral to Home Health - at DISCHARGE [[id number] CPT(R)] As directed Process Instructions: Scheduling Instructions: Comments: DOCUMENTATION FOR VNA SERVICES PATIENT'S LOCATION: [address] [address] (home) Bark Press Operator's Name: Self In discussion with the attending physician, it is certified that this patient is under his/her care and that MD, or an COMPRESS MACHINE OPERATOR, ELECTRIC DETECTOR OPERATOR, or PA who is working directly with him/her, had a lufw-xl-uzce encounter that meets the physician mpny-eg-qtzp encounter requirements with this patient on 12/07/2019. [...] CARE AGENCY: [facility], PHONE: [phone] FAX: [phone] Start of care: 24-48 hours after hospital [...] MD [address] / [place] [address] All A agencies which cover the area [...] info: PCP Your PCP: France Lam MD [phone] For questions regarding this document or issues relating to this hospitalization on the Cardiology Service, please contact your inpatient physician through the [facility] Cam Maker . Issues after hours and on weekends will be handled by the Location Director on-call. Patient Instructions: Neurology Your Diagnosis: [...] the neurology clinic at [facility]. See below for the appointment time. [...] consulted in the interim. Vikash Rodriguez Pager: [phone] Paris Dodd MD - 12/08/2019 8:57 AM [...] complications include novel onset, paroxysmal atrial fibrillation [[id number]: 5] & L-sided diplopia with potential hemineglect [...] consulted in the interim. Vikash Rodriguez Pager: [phone] Paris Dodd MD - 12/07/2019 9:55 AM [...] complications include novel onset, paroxysmal atrial fibrillation [DAX0DP1XQWA: 5] & L-sided diplopia with potential hemineglect [...] complications include novel onset, paroxysmal atrial fibrillation [EQL4DV8MZCU: 5] & L-sided diplopia with potential hemineglect [...] complications include novel onset, paroxysmal atrial fibrillation [HYY2NB4TVGH: 5] & L-sided diplopia with potential hemineglect [...] today; additional complications include paroxysmal atrial fibrillation [NIG2IH9TXBS: 4] c/b possible cardioembolic stroke, ICH from [...] length from neck/greatest diameter to back wall: MAMI 91, CAU 13: 19 mm CORTES 1, [...] a non-culprit artery. S/P DESx3 in the ivoexlqj-ue-evgljz RCA. Aspiration thrombectomy performed, and integrellin bolus [...] complications include novel onset, paroxysmal atrial fibrillation [OUK1RO6MYVB: 5] & L-sided diplopia with potential hemineglect [...] R occipital cardioembolic stroke #Paroxysmal Afib with KF7CLICB5P score of 5 #New segmental bilateral PEs [...] Glasgow MD PGY1, Internal Medicine Cardiology S2, #8401 Associated attestation - Pairs Dodd MD - 12/05/2019 2:59 PM EDT I was the assigned attending grinding and spraying supervisor for this clinical encounter. For the purposes [...] 12/04/2019 10:36 AM EDT Office of Care Management(OCM)/Cable Maintainer(CM)/Discharge Planning Service: Cardiology S2 team CM Bernie Alexander,RN,BSN,MA,ACM pgr [phone] Reviewed record and in Cardiology Rounds with MD team,CMs, fountain worker, ROOF SHINGLER. Pt is anticipated ready for d/c later [...] AD to his PCP and to any [facility] appt for each to have on file. [...] complications include novel onset, paroxysmal atrial fibrillation [KIE7OF4YIJK: 4] & L-sided diplopia with potential hemineglect [...] a non-culprit artery. S/P DESx3 in the bgycbfoq-ev-coibdx RCA. Aspiration thrombectomy performed, and integrellin bolus [...] complications include novel onset, paroxysmal atrial fibrillation [VDM6FC4UUUW: 5] & L-sided diplopia with potential hemineglect [...] R occipital cardioembolic stroke #Paroxysmal Afib with HR6FHIPQ5E score of 5 - No anticoagulation for [...] Glasgow MD PGY1, Internal Medicine Cardiology S2, #9901 I have seen the patient and reviewed [...] in my clinic. Gretchen Yoon MD Pager [phone] Derian Pascual RN - 12/03/2019 9:29 AM [...] Discharge: None Electronically signed: Derian Pascual RN, Cable Maintainer Pgr: [phone] 12/03/2019 9:29 AM Gretchen Yoon [...] complications include novel onset, paroxysmal atrial fibrillation [ONS2QU5ZYMU: 4] & L-sided diplopia with potential hemineglect [...] a non-culprit artery. S/P DESx3 in the pymuizxt-mv-hliude RCA. Aspiration thrombectomy performed, and integrellin bolus [...] complications include novel onset, paroxysmal atrial fibrillation [QRI5JQ4IIRN: 5] & L-sided diplopia with potential hemineglect [...] MRI showed possible cardioembolic stroke #Afib with TJ5LNHCL7O score of 5 - Stroke Team Consulted; [...] Anticoagulation/Arrhythmia # Novel Onset, Paroxsymal Atrial Fibrillation [LFW3OD5YZCZ: 5] - Hold off anticoagulation for at [...] w straight cath prn # Nutrition - [facility] Diet, 2g Na. -- Hematology/Oncology-- # Mild [...] Glasgow MD PGY1, Internal Medicine Cardiology S2, #9601 I have seen the patient and reviewed the resident's above history and I agree with the details as written. The assessment and plan were formulated in discussion with me and I agree with them as documented. Gretchen Yoon MD Pager [phone] Raul Hein RN - 12/03/2019 5:55 AM [...] Negative mcL Appearance UA Clear Clear Spec [place] UA 1.026 1.006 - 1.030 Color UA [...] PGY3 Neurology Resident 12/01/2019 Vascular Neurology Pager [phone] Neurology Attending Attestation I evaluated the patient [...] documented. Deepthi Roman MD Vascular Neurology Standard [facility] Swallow Screen: This screen is to be [...] diet as medical provider deems appropriate. Consider THEATER TECHNICIAN consult for full evaluation and diet recommendations. [...] complications include novel onset, paroxysmal atrial fibrillation [WXR3TR1VGGI: 4] & L-sided diplopia with potential hemineglect [...] a non-culprit artery. S/P DESx3 in the fmrlxqiv-ai-kpedjm RCA. Aspiration thrombectomy performed, and integrellin bolus [...] complications include novel onset, paroxysmal atrial fibrillation [IVR7UK9SXCI: 5] & L-sided diplopia with potential hemineglect [...] Anticoagulation/Arrhythmia # Novel Onset, Paroxsymal Atrial Fibrillation [IPK6DJ9WFVC: 5] - Hold off anticoagulation - pending [...] tamsulosin d/t low BP. # Nutrition - [facility] Diet -- Hematology/Oncology-- # Mild Thrombocytopenia, unclear [...] Glasgow MD PGY1, Internal Medicine Cardiology S2, #2451 I have seen the patient and reviewed [...] the ICU team. Gretchen Yoon MD Pager [phone] Natalia Claros APRN - 12/02/2019 8:38 AM [...] - We are signing off. Please page [phone] with any questions or concerns. For questions please call NSGY pager [phone] Natalia Claros APRN 12/02/2019 8:38 AM Clinical Documentation Improvement: Active Hospital Problems Diagnosis ??? Acute ST elevation myocardial infarction (STEMI) of inferior wall ??? Intracranial hemorrhage ??? Hyperlipidemia ??? Tobacco abuse ??? Claudication from peripheral vascular disease, left Resolved Hospital Problems No resolved problems to display. Tello Hsu, DIRECTOR OF RETENTION - 12/02/2019 2:06 AM EDT 12/01/192009 Oxygen [...] Scan in afternoon. Upon arrival back in [facility] placed on low flow NC at [...] complications include novel onset, paroxysmal atrial fibrillation [QMF0AF5SPFM: 4] & L-sided diplopia with potential hemineglect for which CVA evaluationto be pursued. Active Problems/Subjective: - 11/28: admitted for inferior STEMI, RV failure requiring pressor - got lytics, aspirin and plavix load, heparin gtt, and eptifibatide. 3 MACARIO stents to RCA. [place] cath - low wedge & CVP so [...] a non-culprit artery. S/P DESx3 in the tzxjdjmb-gk-rtaoav RCA. Aspiration thrombectomy performed, and integrellin bolus [...] complications include novel onset, paroxysmal atrial fibrillation [MCI8XB3ZHQB: 4] & L-sided diplopia with potential hemineglect [...] Anticoagulation/Arrhythmia # Novel Onset, Paroxsymal Atrial Fibrillation [HJB4OQ4EMLO: 4] - Obtain: TTE - Pending CVA [...] tamsulosin d/t low BP. # Nutrition - [facility] Diet -- Hematology/Oncology-- # Mild Thrombocytopenia, unclear [...] MD, PGY1 PGY3, Internal Medicine Cardiology S2, #2844 I have seen the patient and reviewed [...] down the line. Gretchen Yoon MD Pager [phone] ?? Gretchen Yoon MD Pager [phone] Natalia Claros APRN - 12/01/2019 1:33 AM [...] per primary team For questions please call [facility] pager [phone] Natalia Claros APRN 12/01/2019 7:42 AM Clinical Documentation Improvement: Active Hospital Problems Diagnosis ??? Acute ST elevation myocardial infarction (STEMI) of inferior wall ??? Intracranial hemorrhage ??? Hyperlipidemia ??? Tobacco abuse ??? Claudication from peripheral vascular disease, left Resolved Hospital Problems No resolved problems to display. Tello Hsu, DIRECTOR OF RETENTION - 11/30/2019 8:44 PM EDT Respiratory Therapy [...] EDT Narrative:Visited in response to request for [employer] Pinner services. Pt was awake, alert, oriented and in bed. Assessment:Patient coping positively with stresses of illness/hospitalization at this time. Pt says that he is hoping to get better and pt is living with and has children and grandchildren. Pt haspurpose of life and has reason to get getter and to be with family. Outcome: Provided emotional and spiritual support and encouraging presence. Lace Pinner services accepted.Conversation to build trusting relationship.Provided pastoral presence.Provided spiritual guidance. Follow up:yes Time; 10 Mins Gretchen Yoon MD - 11/30/2019 10:41 AM EDT Inpatient Cardiology Progress Note Patient Name: Angel Luis Sailnas Date of Admission: 11/29/2019 ( Hospital Day [...] complications include novel onset, paroxysmal atrial fibrillation [[id number]: 4] & L-sided diplopia with potential hemineglect for which CVA evaluationto be pursued. Active Problems/Subjective: - Overnight, CVP < 12 for which a total of 1 L IVF provided - Today AM, patient complains of subjectively reported, left-sided hemineglect with floaters and diplopia [see: exam]. - Otherwise, c/o neck pain 2/2 R IJ [place] & L radial A line. Otherwise, denies [...] a non-culprit artery. S/P DESx3 in the latsbxil-co-gjdwsg RCA. Aspiration thrombectomy performed, and integrellin bolus [...] complications include novel onset, paroxysmal atrial fibrillation [[id number]: 4] & L-sided diplopia with potential hemineglect [...] Anticoagulation/Arrhythmia # Novel Onset, Paroxsymal Atrial Fibrillation [[id number]: 4] - Obtain: TTE to confirm rhythm [...] tamsulosin d/t low BP. # Nutrition - [facility] Diet -- Hematology/Oncology-- # Mild Thrombocytopenia, unclear [...] MD, PGY3 PGY3, Internal Medicine Cardiology S2, #[id number] I have seen the patient and reviewed [...] down the line. Gretchen Yoon MD Pager [phone] Paola Capps RN - 11/30/2019 6:57 AM EDT PT still requiring 4 of levo, several attempts to titrate down (maps in 70;s) But maps would drop toless than 65. Pt very restless in bed Raising and lowering head denies pain . Integrillin stopped [id number] when bottle complete , urine tea colored [...] PCP: France Lam MD PCP phone #: [phone] Ground Nuclear Weapons Assembly Officer: None ID/Chief Complaint: Chest pain History of Present Illness: 74 y.o male with no significant PMH, was in usual state of health until yesterday when he woke up at 4am this morning with severe crushing substernal chest pain /. He took two full strength aspirin and came to [facility] ED. At there was found to [...] and Compazine. He was transferred directly to [facility] via [facility] for further management. Patient had an emergent PCI with 3 MACARIO stents placed to his RCA, with mild disease of LCX (report pending) at [facility]. He was found to be persistently hypotensive requiring Levo up to 10mcg/min. He was transferred to [facility] after the cath procedure. Bedside RHC [...] ??? Penicillins Pt doesn't remember reaction ??? Vlitezp-Qsu-Lut Reductase Inhibitors Stiff neck, upset stomach, back pain Family History: Mother: Father: [place] 2 Uncles with MIs Social History: Tobacco: Current active smoker 1 ppd. 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 Vitals: Last value Range last [...] in the last 7068 hours. Invalid input(s): BCLXQGZLGEF3H Heme: No results for input(s): LDH, HAPTOGLOBIN, [...] OSH prior to transfer and PCI at [facility]. Massive inferior STEMI with troponin level 20, currently in CVCC due to pressor requirement. BedsideRHC demonstrated evidence of elevated right sided heart failure, but his wedge was wnl. He received 1L bolus with improvement of his blood pressure and reduction of his pressor requirement. PLAN: Admit to Cardiology, S2 Team Pager # [phone] #Inferior STEMI, LEYLA 149 - Resolving EKG [...] inferior STEMI s/p lytic therapy. Transferred to [facility] and underwent successful PCI of the RCA with MACARIO x3. Gretchen Yoon MD Pager [phone] documented in this encounter Procedure Notes Juventino [...] to the planned procedure. Hand Hygiene: The icu clerk did perform hand hygiene prior to [...] a suspected line-associated infection. Location of Procedure: [facility] Risks and Benefits: The risks and [...] to the planned procedure. Hand Hygiene: The icu clerk did perform hand hygiene prior to [...] side:right An Introducer (PSI Kit) was used. [place]. Insertion Side: right. Insertion Site: internal jugular. Catheter Details: Number of Lumens: 1 Catheter Type: heparin-coated The line was placed over a guidewire. Confirmation of Venous Placement: Venous placement was confirmed by transducing the pressure. Introducer Insertion Attempts: 1 Comments: Floating the [place] Catheter Attempts: 1 Comments: Sterile Dressing: Biopatch [...] better pt back in SR. Please page [phone] for any more cares or concerns Plan [...] -- Mental Status -- Score -- OTHER Beeyr Fall Risk -- Restraint Interventions Safety Promotion/Fall [...] complications include novel onset, paroxysmal atrial fibrillation [[id number]: 5]& L-sided diplopia with potential hemineglect for [...] Total Evaluation Minutes, Occupational Therapy: 10 Pager: [phone] FRANCINE Nuñez Occupational Therapy Rehabilitation Department Plan [...] complications include novel onset, paroxysmal atrial fibrillation [[id number]: 5] & L-sided diplopia with potential hemineglect [...] hand rails). Baseline Mobility: Independent. Drives. Shares mutuel teller with his , however her mobility is [...] plan as stated. Time IN / OUT: 2919-1389 Total Evaluation Minutes, Physical Therapy: 15(gtx1) Barbara Baldwin, PT Pager: [phone] Physical Therapy Inpatient Rehabilitation Department Plan of [...] he receives all he needs through the [place]. Consult refused. Romain Tran, MSN, RN-, [facility] Tobacco Talent Acquisition Lead [facility] Pager #[phone] Plan of Care - Romain Oglesby OT [...] complications include novel onset, paroxysmal atrial fibrillation [[id number]: 5] & L-sided diplopia with potential hemineglect [...] and measurable assessment of functional outcome. Pager: [phone] ROMAIN OGLESBY OT 12/03/2019 Occupational Therapy Rehabilitation [...] in an outpatient cardiac rehabilitation program at [facility] was discussed. Patient agrees to a referral to this program. His has been a cardiac rehab patient at [facility] and he is familiar with the program. [...] complications include novel onset, paroxysmal atrial fibrillation [[id number]: 5] & L-sided diplopia with potential hemineglect [...] hand rails). Baseline Mobility: Independent. Drives. Shares mutuel teller with his , however her mobility is [...] in this evaluation. Time IN / OUT: 5555-8153 Total Evaluation Minutes, Physical Therapy: 25(eval, gtx1) Barbara Baldwin, PT Pager: [phone] Physical Therapy Inpatient Rehabilitation Department Consult Note [...] Please contact JOHANNA NOBLES RN on pager [phone] or the wound care team at [phone] or pager [phone] skin and wound care concerns or questions. [...] Salinas would be surrogate decision maker per [place] surrogate decision making law. Any patient receiving carspousee at [facility] must abide by [place] law. The hierarchy for surrogate decisionmaking is: [...] (i) The agent with financial power of batch maker or a conservator appointed in accordance with [...] Insurance: N/A Prescription Coverage: Yes Preferred Pharmacy: [place], [place] Other: No Primary Care Provider: France Lam MD [phone] Patient/Caregiver Goals of Treatment: Return home Potential Needs for Transition of Care: Rehab/SNF: Based on discussions with the multi-disciplinary healthcare team, the patient would benefit from SNF level of care at discharge. ?? I have met with the patient to discuss discharge planning needs. I have provided the [facility], Officeof Care Management letter from the Merchant Patroller pertaining to rehab referrals. I have also provided a letter describing our affiliations within the [facility] and educated them about [...] patient [facility] [address] [place] [id number] ?? [address] , [place] [address] Note routed to Promotions Director who will communicate referrals to facilities and provide any required information. Home Health: If therapies recommend home w/ VNA, the patient has been provided a list of Home Health Agencies/DME vendors which serve their preferred geographic area. A letter describing our affiliations was reviewed with them and they were educated about their right to choose where referrals are placed. Patient requests referral to [facility]. PHONE: [phone] FAX: [phone] Referral routed to the Promotions Director for matching with agency/vendor and to provide [...] Insured w/ Medicare. Gets medications filled at [facility] in [place], [place]. Son to transport at discharge Plan: Discharge dispo depending on patient's physical recovery; SNF vs home w/ VNA. A member of the Care Management team will continue to monitor progress, follow for continuity of care and assist with transition of care planning. Derian Pascual RN Pager: [phone] Plan of Care - Estefani Baeza RN [...] ??? Penicillins Pt doesn't remember reaction ??? Hxemyvd-Zjk-Guz Reductase Inhibitors Stiff neck, upset stomach, back [...] noncontrast head CT and [facility] [place] [facility] [place] at 1600 hrs. We will [...] vision concerning for stroke. Patient presented to [facility] in transfer for a STEMI after presenting [...] ??? Penicillins Pt doesn't remember reaction ??? Qtbwrkm-Nhm-Zpg Reductase Inhibitors Stiff neck, upset stomach, back [...] file Gets together: Not on file Attends shinto service: Not on file Active member of [...] L Elbow flexion 5/5 R, 5/5 L Educational Consultant LE: 5/5 R, 5/5 L Hip flexion [...] PGY3 Neurology Resident 11/30/2019 Vascular Neurology Pager [phone] Standard [facility] Swallow Screen: This screen is to be [...] diet as medical provider deems appropriate. Consider THEATER TECHNICIAN consult for full evaluation and diet recommendations. [...] Department of Neurology [facility] Brief Op Note - Gretchen Yoon MD - 11/29/2019 8:38 PM EDT Brief Operative Note Patient Name: Angel Luis Salinas : [id number] MR#: [id number] Case Date: 11/29/2019 Surgeon: Surgeon(s) and Role: * Gretchen Yoon MD - Primary * Aidan Ward MD - Fellow Preoperative diagnosis: Inferior STEMI Postoperative diagnosis: Inferior STEMI Procedure(s) (LRB): CARDIAC CATHETERIZATION (N/A) Findings: Discrete 90% stenosis in the prox-to-mid RCA. Severe diffuse disease in the distal vessel. Discrete LCX stenosis in a non-culprit artery. S/P DESx3 in the dgejivmx-md-pmselo RCA. Aspiration thrombectomy performed, and integrellin bolus x2+ infusion. Nicardipine given during case due to intermittent sluggish flow. Complications: None documented in this encounter Plan of Treatment Upcoming Encounters Date Type Specialty Care Team Description 06/30/2022 Office Visit Endocrinology Alan Terrell MD [facility] [address] ENDOCRINOLOGY [place], [place] [address] (Wo rk) Scheduled Referrals Name [...] are i n the results section. [facility] [place] W STAT 11/30/2019 4:36 Res [...] athologist Signature Potassium 3.9 3.5 - 5.0 [facility] mmol/L [facility] Comment: Please note: ??Patients with WBC [...] Organization Address City/State/ZIP Code Phon e Number [place] [id number] (ABNORMAL) Hemogram (12/08/2019 12:39 PM EDT) Analysis Performed At Patho logist Time Signature WBC 9.9 (H) 4.0 - 9.5 [place] [facility] x10(3)/[facility] LABORATORY RBC 4.51 (L) 4.58 - [place] 5.[address] [facility] x10(6)/[facility] LABORATORY Hemoglobin 13.0 (L) 13.7 - [place] [facility] 16.5 gm/dL [facility] Hematocrit 40.5 40.5 - [place] [facility] 48.5 % [facility] MCV 89.8 82.9 - [place] 93.1 [facility] LABORATORY MCH 28.8 27.5 - [place] 32.1 pg [facility] MCHC 32.1 32.0 - [place] 35.7 gm/dL [facility] Platelets 214 145 - 357 [place] [facility] x10(3)/[facility] LABORATORY RDWSD 49.2 (H) 36.0 - [place] 45.0 [facility] LABORATORY RDWCV 15.1 (H) 11.4 - [place] [facility] 13.8 % [facility] MPV 12.1 7.6 - 12.9 [place] [facility] LABORATORY nRBC % Auto 0.0 % [facility] nRBC Abs Auto 0.000 0.000 - [place] 0.[address] [facility] x10(3)/[facility] LABORATORY Specimen Anatomical Collection Method Collection Time Receive d Time (Source) Location / / Volume Laterality Blood specimen 12/08/2019 12:39 0 (specimen) PM EDT 12:47 PM EDT Resulting Agency Comment Spec In Lab Gretchen Yoon MD HEMATOLOGY ORDERABLES Performing Organization Address City/[facility]/ZIP Code Phon e Number [address] Hepatic Function Panel (12/08/2019 6:28 AM EDT) P athologist Signature Total Protein 6.6 6.1 - 8.0 [facility] gm/dL [facility] Albumin 3.2 3.2 - 5.2 [facility] gm/dL [facility] AST 18 0 - [address] [facility] unit/L [facility] ALT 13 0 - 55 [facility] unit/L [facility] Alk Phos 64 40 - 130 [facility] Total 0.4 0.2 - 1.3 [facility] Bilirubin mg/dL [facility] Bili, Direct 0.1 0.0 - 0.3 [facility] mg/dL [facility] Specimen Anatomical Collection Method Collection Time Receive d Time (Source) Location / / Volume Laterality Blood specimen Venous Draw / 12/08/2019 6:28 AM 2019 6:36 (specimen) Unknown EDT AM EDT Resulting Agency Comment Spec In Lab Riki Stevens MD CHEMISTRY ORDERABLES Performing Organization Address City/State/ZIP Code Phon e Number [place], [place] [id number] [place] [address] (ABNORMAL) TSH (12/08/2019 6:28 AM EDT) P athologist Signature TSH 5.27 (H) 0.27 - 4.20 [place] [facility] mcIU/mL [facility] Specimen Anatomical Collection Method Collection Time Receive d Time (Source) Location / / Volume Laterality Blood specimen Venous Draw / 12/08/2019 6:28 AM 2019 6:36 (specimen) Unknown EDT AM EDT Resulting Agency Comment Spec In Lab Darrell Glasgow MD CHEMISTRY ORDERABLES Performing Organization Address City/State/[place] [address] Potassium (12/08/2019 6:28 AM EDT) P athologist Signature Potassium 4.2 3.5 - 5.0 [facility] mmol/L [facility] Comment: Please note: ??Patients with WBC [...] Lagos MD CHEMISTRY ORDERABLES Performing Organization Address City/[facility]/[place] [address] (ABNORMAL) Differential, Automated (12/08/2019 12:43 AM EDT) Patholo gist Method Time Signature Neutrophils % 60.7 % [facility] Neutr Abs (ANC) 6.81 (H) 1.70 - [facility] 6.[address] [facility] x10(3)/[facility] LABORATORY Lymphocytes % 23.4 % [facility] Lymphocytes Abs 2.6 0.9 - 3.2 [facility] x10(3)/[facility] LABORATORY Monocytes % 10.0 % [facility] Monocyte Abs 1.1 (H) 0.3 - 0.9 [facility] x10(3)/[facility] LABORATORY Eosinophils % 3.7 % [facility] Eosinophils Abs 0.4 0.0 - 0.4 [facility] x10(3)/[facility] LABORATORY Basophils % 1.2 % [facility] Basophils Abs 0.1 0.0 - 0.1 [facility] x10(3)/[facility] LABORATORY Immature Gran % 1.00 % [facility] Comment: Immature granulocytes(IG's)percentage an d absolute count will include metamyelocytes, myelocytes, and promyelo cytes. Blood smears from CBCs yielding IG's will be scanned manually for concor dance. If this scan disagrees with the automated IG or if promyelocytes are not ed, a manual differential will be performed. Pita Gran Abs 0.11 (H) 0.00 - 0.04 x10(3)/[facility] LABORATORY Specimen Anatomical Collection Method Collection Time Receive d Time (Source) Location / / Volume Laterality Blood specimen 12/08/2019 12:43 0 (specimen) AM EDT 12:52 AM EDT Resulting Agency Comment Spec In Lab Riki Stevens MD HEMATOLOGY ORDERABLES Performing Organization Address City/State/ZIP Code Phon e Number [place] [id number] (ABNORMAL) Hemogram (12/08/2019 12:43 AM EDT) Analysis Performed At Patho logist Time Signature WBC 11.2 (H) 4.0 - 9.5 [facility] x10(3)/[facility] LABORATORY RBC 4.46 (L) 4.58 - [facility] 5.[address] [facility] x10(6)/[facility] LABORATORY Hemoglobin 13.1 (L) 13.7 - [facility] 16.5 gm/dL [facility] Hematocrit 40.5 40.5 - [facility] 48.5 % [facility] MCV 90.8 82.9 - [facility] 93.1 [facility] LABORATORY MCH 29.4 27.5 - [place] [facility] 32.1 pg [facility] MCHC 32.3 32.0 - [facility] 35.7 gm/dL [facility] Platelets 215 145 - 357 [facility] x10(3)/[facility] LABORATORY RDWSD 49.8 (H) 36.0 - [place] [facility] 45.0 [facility] LABORATORY RDWCV 15.2 (H) 11.4 - [facility] 13.8 % [facility] MPV 12.3 7.6 - 12.9 [facility] LABORATORY nRBC % Auto 0.0 % [facility] nRBC Abs Auto 0.000 0.000 - [place] [facility] 0.[address] [facility] x10(3)/[facility] LABORATORY Specimen Anatomical Collection Method Collection Time Receive d Time (Source) Location / / Volume Laterality Blood specimen 12/08/2019 12:43 0 (specimen) AM EDT 12:52 AM EDT Resulting Agency Comment Spec In Lab Riki Stevens MD HEMATOLOGY ORDERABLES Performing Organization Address City/State/ZIP Code Phon e Number [address] Magnesium (12/08/2019 12:43 AM EDT) P athologist Signature Magnesium 1.01 0.69 - 1.07 [facility] mmol/L [facility] Specimen Anatomical Collection Method Collection Time Receive d Time (Source) Location / / Volume Laterality Blood specimen 12/08/2019 12:43 0 (specimen) AM EDT 12:52 AM EDT Resulting Agency Comment Spec In Lab Gretchen Yoon MD CHEMISTRY ORDERABLES Performing Organization Address City/State/ZIP Code Phon e Number [address] (ABNORMAL) BMP w/fasting Glucose (12/08/2019 12:43 AM EDT) P athologist Signature Glucose 106 (H) 65 - 99 [facility] Fasting mg/dL [facility] Comment: ?Fasting* Glucose Interpretive C riteria [...] of Diabetes Mellitus, Position Statement from the [place] [employer]. ??Diabete s Care, Volume 33, Supplement 1, Jul 2009 BUN 14 10 - 20 mg/dL [facility] Creatinine 1.16 0.80 - 1.50 mg/dL [facility] Sodium 134 (L) 135 - [...] estions. Chloride 99 98 - 107 mmol/L [facility] CO2 19 (L) 22 - 31 mmol/L [facility] Anion Gap 16 (H) 5 - 15 mmol/L [facility] Calcium 8.9 8.5 - 10.5 mg/dL [facility] Estimated GFR 62 >=60 mL/min/1.73 m?? [facility] Comment: The eGFR was calculated using the CKD-EP I equation. As with all creatinine based estimates of kidney function, eGFR values calculated with the CKD-EPI equation are not accurate in patients wi th acute kidney failure, extremes of body mass or the acutely ill. http://[employer]/[facility]EnkOnPath Technologies eGFR 72 >=60 mL/min/1.73 m?? [facility] Comment: The eGFR was calculated using the CKD-EP I equation. As with all creatinine based estimates of kidney function, eGFR values calculated with the CKD-EPI equation are not accurate in patients wi th acute kidney failure, extremes of body mass or the acutely ill. http://[employer]/[facility]Enkf Specimen Anatomical Collection Method Collection Time Receive d Time (Source) Location / / Volume Laterality Blood specimen 12/08/2019 12:43 0 (specimen) AM EDT 12:52 AM EDT Resulting Agency Comment Spec In Lab Gretchen Yoon MD CHEMISTRY ORDERABLES Performing Organization Address [facility]/[place]IP [place] [address] Heparin (unfractionated) Level (12/08/2019 [...] MD HEMATOLOGY ORDERABLES Performing Organization Address [facility]/ZIP [place] [address] [facility] LAB[address] Potassium (12/07/2019 8:39 PM EDT) athologist Signature Potassium 4.1 3.5 - 5.0 [facility] mmol/L [facility] Comment: Please note: ??Patients with WBC [...] Lagos MD CHEMISTRY ORDERABLES Performing Organization Address City/[facility]/ZIP [place] [address] Potassium (12/07/2019 4:02 PM EDT) P athologist Signature Potassium 4.0 3.5 - 5.0 [facility] mmol/L [facility] Comment: Please note: ??Patients with WBC [...] Yoon MD CHEMISTRY ORDERABLES Performing Organization Address City/[facility] [place] [address] (ABNORMAL) Hemogram (12/07/2019 4:02 PM EDT) Analysis Performed At Patho logist Time Signature WBC 17.4 (H) 4.0 - 9.5 [place] [facility] x10(3)/[facility] LABORATORY RBC 4.58 4.58 - [facility] 5.[address] [facility] x10(6)/[facility] LABORATORY Hemoglobin 13.5 (L) 13.7 - [facility] [facility] 16.5 gm/dL [facility] Hematocrit 40.8 40.5 - [facility] 48.5 % [facility] MCV 89.1 82.9 - [facility] [facility] 93.1 fL [facility] MCH 29.5 27.5 - [place] [facility] 32.1 [facility] LABORATORY MCHC 33.1 32.0 - [place] MONAE 35.7 gm/dL [facility] Platelets 238 145 - 357 [facility] x10(3)/[facility] LABORATORY RDWSD 48.8 (H) 36.0 - [place] MONAE 45.0 [facility] LABORATORY RDWCV 15.0 (H) 11.4 - [facility] 13.8 % [facility] MPV 12.2 7.6 - 12.[address] [address]ORY nRBC % Auto 0.0 % [facility] nRBC Abs Auto 0.000 0.000 - [place] [facility] 0.[address] [facility] x10(3)/[facility] LABORATORY Specimen Anatomical Collection Method Collection Time Receive d Time (Source) Location / / Volume Laterality Blood specimen 12/07/2019 4:02 PM 020 4:08 (specimen) EDT PM EDT Resulting Agency Comment Spec In Lab Gretchen Yoon MD HEMATOLOGY ORDERABLES Performing Organization Address City/State/Z[place] [address] EKG 12 Lead (12/07/2019 [...] (Bezet) Calculated P -12 degrees MUSE SYSTEM Luck Calculated R 10 degrees MUSE SYSTEM Luck Calculated T -138 degrees MUSE SYSTEM Luck INTERPRETATION Supraventricular tachycardia MUSE SYSTEM Low voltage [...] athologist Signature Potassium 4.2 3.5 - 5.0 [facility] mmol/L [facility] Comment: Please note: ??Patients with WBC [...] Organization Address City/State/[place] [address] Heparin (unfractionated) Level (12/07/2019 [...] Lagos MD HEMATOLOGY ORDERABLES Performing Organization Address City/[facility]/ZIP Code Phon e Number [place] [id number] Heparin (unfractionated) Level (12/07/2019 [...] Lagos MD HEMATOLOGY ORDERABLES Performing Organization Address City/[facility]/ZIP Code Phon e Number [address] (ABNORMAL) Differential, Automated (12/07/2019 5:20 AM EDT) Patholo gist Method Time Signature Neutrophils % 62.4 % [facility] LABORATORY Neutr Abs (ANC) 5.46 1.70 - [facility] 6.[address] [facility] x10(3)/[facility] LABORATORY Lymphocytes % 20.3 % [facility] LABORATORY Lymphocytes Abs 1.8 0.9 - 3.2 [facility] x10(3)/[facility] LABORATORY Monocytes % 11.0 % [facility] LABORATORY Monocyte Abs 1.0 (H) 0.3 - 0.9 [facility] x10(3)/[facility] LABORATORY Eosinophils % 4.5 % [facility] LABOR[facility]ORY Eosinophils Abs 0.4 0.0 - 0.4 [facility] x10(3)/[facility] LABORATORY Basophils % 0.9 % [facility]ORATORY Basophils Abs 0.1 0.0 - 0.1 [facility] x10(3)/[facility] LABORATORY Immature Gran % 0.90 % [facility]ORATORY Comment: Immature granulocytes(IG's)percentage an d absolute count will include metamyelocytes, myelocytes, and promyelo cytes. Blood smears from CBCs yielding IG's will be scanned manually for concor dance. If this scan disagrees with the automated IG or if promyelocytes are not ed, a manual differential will be performed. Pita Gran Abs 0.08 (H) 0.00 - 0.04 x10(3)/[facility] LABORATORY Specimen Anatomical Collection Method Collection Time Receive d Time (Source) Location / / Volume Laterality Blood specimen 12/07/2019 5:20 AM 020 5:37 (specimen) EDT AM EDT Resulting Agency Comment Spec In Lab Riki Stevens MD HEMATOLOGY ORDERABLES Performing Organization Address City/State/[place] [address] (ABNORMAL) Hemogram (12/07/2019 5:20 AM EDT) Analysis Performed At Patho logist Time Signature WBC 8.7 4.0 - 9.5 [facility] x10(3)/[facility] LABORATORY RBC 4.20 (L) 4.58 - [facility] 5.[address] [facility] x10(6)/[facility] LABORATORY Hemoglobin 12.3 (L) 13.7 - [facility] 16.5 gm/dL [facility] LABORAT[facility] Hematocrit 37.4 (L) 40.5 - MELINA MONAE 48.5 % [facility] MCV 89.0 82.9 - MELINA VILLANUEVACK 93.1 [facility] LABORATORY MCH 29.3 27.5 - MELINA VILLANUEVACK 32.1 pg [facility] MCHC 32.9 32.0 - MELINA WHITTENCOCK 35.7 gm/dL [facility] Platelets 181 145 - 357 [facility] x10(3)/[facility] LABORATORY RDWSD 47.7 (H) 36.0 - MELINA [place]OCK 45.0 [facility] LABORATORY RDWCV 14.8 (H) 11.4 - MELINA VILLANUEVACK 13.8 % [facility] MPV 12.3 7.6 - 12.9 [facility] LAB[facility]ATORY nRBC % Auto 0.0 % [facility]ORATORY nRBC Abs Auto 0.000 0.000 - MELINA MARSHDOV 0.[address] [facility] x10(3)/[facility] LABORATORY Specimen Anatomical Collection Method Collection Time Receive d Time (Source) Location / / Volume Laterality Blood specimen 12/07/2019 5:20 AM 020 5:37 (specimen) EDT AM EDT Resulting Agency Comment Spec In Lab Riki Stevens MD HEMATOLOGY ORDERABLES Performing Organization Address City/[facility]/ZIP Code Phon e Number [address] Magnesium (12/07/2019 5:20 AM EDT) athologist Signature Magnesium 0.89 0.69 - 1.07 [facility] mmol/L [facility] Specimen Anatomical Collection Method Collection Time Receive d Time (Source) Location / / Volume Laterality Blood specimen 12/07/2019 5:20 AM 020 5:37 (specimen) EDT AM EDT Resulting Agency Comment Spec In Lab Gretchen Yoon MD CHEMISTRY ORDERABLES Performing Organization Address City/[facility]/ZIP Code Phon e Number [address] (ABNORMAL) BMP w/fasting Glucose (12/07/2019 5:20 AM EDT) athologist Signature Glucose 100 (H) 65 - 99 [facility] Fasting mg/dL [facility] Comment: ?Fasting* Glucose Interpretive C riteria [...] of Diabetes Mellitus, Position Statement from the [place] [employer]. ??Diabete s Care, Volume 33, Supplement 1, Jul 2009 BUN 14 10 - 20 mg/dL [facility] LABORATORY Creatinine 0.83 0.80 - 1.50 mg/dL [facility] LABORATORY Sodium 135 135 - 145 [...] estions. Chloride 101 98 - 107 mmol/L [facility]OR[facility] CO2 20 (L) 22 - 31 mmol/L [facility] Anion Gap 14 5 - 15 mmol/L [facility] LABORATORY Calcium 8.8 8.5 - 10.5 mg/dL [facility] LABORATORY Estimated GFR 87 >=60 mL/min/1.73 m?? [facility] Comment: The eGFR was calculated using the CKD-EP I equation. As with all creatinine based estimates of kidney function, eGFR values calculated with the CKD-EPI equation are not accurate in patients wi th acute kidney failure, extremes of body mass or the acutely ill. [email or web address]://[email or web address]/[facility] COALGATEnkf eGFR 101 >=60 mL/min/1.73 m?? [facility] Comment: The eGFR was calculated using the CKD-EP I equation. As with all creatinine based estimates of kidney function, eGFR values calculated with the CKD-EPI equation are not accurate in patients wi th acute kidney failure, extremes of body mass or the acutely ill. http://[employer]/[facility] COALGATEnkf Specimen Anatomical Collection Method Collection Time Receive d Time (Source) Location / / Volume Laterality Blood specimen 12/07/2019 5:20 AM 020 5:37 (specimen) EDT AM EDT Resulting Agency Comment Spec In Lab Gretchen Yoon MD CHEMISTRY ORDERABLES Performing Organization Address City/State/ZIP [place] [address] Heparin (unfractionated) Level (12/06/2019 [...] Organization Address City/State/ZIP [place] [address] Head wo Contrast [...] For questions regarding this report, please contact city hospital number below. ? Electronically signed by: Merari Collins [facility] ([phone]), at 12/06/2019 10:06 PM Narrative 12/06/2019 10:06 [...] by: Merari Collins [facility] ([phone]), at 12/06/2019 10:06 PM Paris Lagos MD IMG CT ORDERABLES (ABNORMAL) Hemogram (12/06/2019 4:20 PM EDT) Analysis Performed At Patho logist Time Signature WBC 10.4 (H) 4.0 - 9.5 [facility] [employer] x10(3)/[facility] LABORATORY RBC 4.32 (L) 4.58 - MELINA DOV 5.[address] [facility] x10(6)/[facility] LABORATORY Hemoglobin 12.5 (L) 13.7 - MELINA DOV 16.5 gm/dL [facility] Hematocrit 38.4 (L) 40.5 - MELINA DOV 48.5 % [facility] MCV 88.9 82.9 - [facility] DOV 93.1 [facility] LABORATORY MCH 28.9 27.5 - [employer] 32.1 pg [facility] MCHC 32.6 32.0 - MELINA DOV 35.7 gm/dL [facility] Platelets 194 145 - [address] [facility] x10(3)/[facility] LABORATORY RDWSD 46.9 (H) 36.0 - [facility] DOV 45.0 [facility] LABORATORY RDWCV 14.6 (H) 11.4 - MELINA DOV 13.8 % [facility] MPV 11.9 7.6 - 12.9 [facility] DOV [facility] LABORATORY nRBC % Auto 0.0 % [facility] LABORATORY nRBC Abs Auto 0.000 0.000 - [place] [employer] 0.[address] [facility] x10(3)/[facility] LABORATORY Specimen Anatomical Collection Method Collection Time Receive d Time (Source) Location / / Volume Laterality Blood specimen 12/06/2019 4:20 PM 020 4:31 (specimen) EDT PM EDT Resulting Agency Comment Spec In Lab Gretchen Yoon MD HEMATOLOGY ORDERABLES Performing Organization Address City/State/ZIP Code Phon e Number [place] [id number] HOSPITAL LAB[address]ORY Drive Heparin (unfractionated) Level (12/06/2019 [...] Organization Address City/State/ZIP Code Phon e Number [address] Heparin (unfractionated) Level (12/06/2019 [...] Organization Address City/State/[place] [address] Magnesium (12/06/2019 3:36 AM EDT) P athologist Signature Magnesium 0.86 0.69 - 1.07 [facility] mmol/L [facility] Specimen Anatomical Collection Method Collection Time Receive d Time (Source) Location / / Volume Laterality Blood specimen 12/06/2019 3:36 AM 020 3:45 (specimen) EDT AM EDT Resulting Agency Comment Spec In Lab Gretchen Yoon MD CHEMISTRY ORDERABLES Performing Organization Address City/State/[place] [address] (ABNORMAL) BMP w/fasting Glucose (12/06/2019 3:36 AM EDT) P athologist Signature Glucose 103 (H) 65 - 99 [facility] Fasting mg/dL [facility] Comment: ?Fasting* Glucose Interpretive C riteria [...] of Diabetes Mellitus, Position Statement from the [place] [employer]. ??Diabete s Care, Volume 33, Supplement 1, Jul 2009 BUN 20 10 - 20 mg/dL [facility] LABORATORY Creatinine 0.88 0.80 - 1.50 mg/dL [facility] LABORATORY Sodium 136 135 - 145 [...] estions. Chloride 103 98 - 107 mmol/L [facility] CO2 19 (L) 22 - 31 mmol/L [facility] Anion Gap 14 5 - 15 mmol/L [facility] LABORATORY Calcium 8.7 8.5 - 10.5 mg/dL [facility] LABORATORY Estimated GFR 85 >=60 mL/min/1.73 m?? [facility] Comment: The eGFR was calculated using the CKD-EP I equation. As with all creatinine based estimates of kidney function, eGFR values calculated with the CKD-EPI equation are not accurate in patients wi th acute kidney failure, extremes of body mass or the acutely ill. http://[employer]/DHMCnkf eGFR 99 >=60 mL/min/1.73 m?? [facility] Comment: The eGFR was calculated using the CKD-EP I equation. As with all creatinine based estimates of kidney function, eGFR values calculated with the CKD-EPI equation are not accurate in patients wi th acute kidney failure, extremes of body mass or the acutely ill. http://[employer] ([employer]/DHMCnkf Specimen Anatomical Collection Method Collection Time Receive d Time (Source) Location / / Volume Laterality Blood specimen 12/06/2019 3:36 AM 020 3:45 (specimen) EDT AM EDT Resulting Agency Comment Spec In Lab Gretchen Yoon MD CHEMISTRY ORDERABLES Performing Organization Address City/State/ZIP [place] [address] (ABNORMAL) Hemogram (12/06/2019 3:36 AM EDT) Analysis Performed At Patho logist Time Signature WBC 9.2 4.0 - 9.[address] [facility] x10(3)/[facility] LABORATORY RBC 3.99 (L) 4.58 - MELINA DOV 5.[address] [facility] x10(6)/[facility] LABORATORY Hemoglobin 11.9 (L) 13.7 - [facility] DOV 16.5 gm/dL [facility] Hematocrit 35.5 (L) 40.5 - MELINA DOV 48.5 % [facility] MCV 89.0 82.9 - [facility] DOV 93.1 [facility] LABORATORY MCH 29.8 27.5 - MELINA DOV 32.1 pg [facility] MCHC 33.5 32.0 - [facility] DOV 35.7 gm/dL [facility] Platelets 164 145 - [address] [facility] x10(3)/[facility] LABORATORY RDWSD 47.6 (H) 36.0 - [facility] DOV 45.0 [facility] LABORATORY RDWCV 14.7 (H) 11.4 - MELNIA DOV 13.8 % [facility] MPV 11.9 7.6 - 12.[address] [facility] LAB[facility]ORY nRBC % Auto 0.0 % [facility]ORATORY nRBC Abs Auto 0.000 0.000 - [employer]OV 0.[address] [facility] x10(3)/[facility] LABORATORY Specimen Anatomical Collection Method Collection Time Receive d Time (Source) Location / / Volume Laterality Blood specimen 12/06/2019 3:36 AM 020 3:45 (specimen) EDT AM EDT Resulting Agency Comment Spec In Lab Gretchen Yoon MD HEMATOLOGY ORDERABLES Performing Organization Address City/State/ZIP [place] [address] (ABNORMAL) Differential, Automated (12/05/2019 10:52 PM EDT) [facility] Method Time Signature Neutrophils % 61.9 % [facility] Neutr Abs (ANC) 6.02 1.70 - [facility] 6.[address] [facility] x10(3)/[facility] LABORATORY Lymphocytes % 22.4 % [facility] Lymphocytes Abs 2.2 0.9 - 3.2 [facility] x10(3)/[facility] LABORATORY Monocytes % 10.4 % [facility] Monocyte Abs 1.0 (H) 0.3 - 0.9 [facility] x10(3)/[facility] LABORATORY Eosinophils % 4.1 % [facility] Eosinophils Abs 0.4 0.0 - 0.4 [facility] x10(3)/[facility] LABORATORY Basophils % 0.7 % [facility] Basophils Abs 0.1 0.0 - 0.1 [facility] x10(3)/[facility] LABORATORY Immature Gran % 0.50 % [facility] Comment: Immature granulocytes(IG's)percentage an d absolute count will include metamyelocytes, myelocytes, and promyelo cytes. Blood smears from CBCs yielding IG's will be scanned manually for concor dance. If this scan disagrees with the automated IG or if promyelocytes are not ed, a manual differential will be performed. Pita Gran Abs 0.05 (H) 0.00 - 0.04 x10(3)/[facility] LABORATORY Specimen Anatomical Collection Method Collection Time Receive d Time (Source) Location / / Volume Laterality Blood specimen 12/05/2019 10:52 0 (specimen) PM EDT 10:59 PM EDT Resulting Agency Comment Spec In Lab Mandi Barrera MD HEMATOLOGY ORDERABLES Performing Organization Address City/State/ZIP [place] [address] (ABNORMAL) Hemogram (12/05/2019 10:52 PM EDT) Analysis Performed At Patho logist Time Signature WBC 9.7 (H) 4.0 - 9.5 [facility] x10(3)/[facility] LABORATORY RBC 4.07 (L) 4.58 - [facility] DOV 5.[address] [facility] x10(6)/[facility] LABORATORY Hemoglobin 11.9 (L) 13.7 - [facility] 16[facility] gm/dL [facility] Hematocrit 36.4 (L) 40.5 - [facility] 48.5 % [facility] MCV 89.4 82.9 - [facility] 93.1 [facility] LABORATORY MCH 29.2 27.5 - [facility] DOV 32.1 pg [facility] MCHC 32.7 32.0 - [facility] DOV 35.7 gm/dL [facility] Platelets 167 145 - 357 [facility] x10(3)/[facility] LABORATORY RDWSD 47.7 (H) 36.0 - [facility] DOV 45.0 [facility] LABORATORY RDWCV 14.6 (H) 11.4 - [facility] DOV 13.8 % [facility] MPV 12.1 7.6 - 12.9 [facility] LABORATORY nRBC % Auto 0.0 % [facility] LABORATORY nRBC Abs Auto 0.000 0.000 - [facility] DOV 0.[address] [facility] x10(3)/[facility] LABORATORY Specimen Anatomical Collection Method Collection Time Receive d Time (Source) Location / / Volume Laterality Blood specimen 12/05/2019 10:52 0 (specimen) PM EDT 10:59 PM EDT Resulting Agency Comment Spec In Lab Mandi Barrera MD HEMATOLOGY ORDERABLES Performing Organization Address City/State/ZIP [place] [address] Heparin (unfractionated) Level (12/05/2019 [...] Organization Address City/State/[place] [address] MRI Brain wwo Contrast [...] by: Merari Collins [facility] ([phone]), at 12/05/2019 10:02 PM Paris Lagos MD IMG MRI ORDERABLES (ABNORMAL) Hemogram (12/05/2019 1:00 PM EDT) Analysis Performed At Patho logist Time Signature WBC 8.7 4.0 - 9.5 [facility] x10(3)/[facility] LABORATORY RBC 4.17 (L) 4.58 - [place] DOV 5.[address] [facility] x10(6)/[facility] LABORATORY Hemoglobin 12.4 (L) 13.7 - [facility] 16.[facility] gm/dL [facility] Hematocrit 37.0 (L) 40.5 - [facility] DOV 48.5 % [facility] MCV 88.7 82.9 - [facility] DOV 93.1 [facility] LABORATORY MCH 29.7 27.5 - M[place]INA DOV 32.1 pg [facility] MCHC 33.5 32.0 - [facility] DOV 35.7 gm/dL [facility] Platelets 173 145 - 357 [facility] x10(3)/[facility] LABORATORY RDWSD 47.3 (H) 36.0 - [facility] DOV 45.0 [facility] LABORATORY RDWCV 14.6 (H) 11.4 - [facility] DOV 13.8 % [facility] MPV 12.1 7.6 - 12.9 [facility] nRBC % Auto 0.0 % [facility] LABORATORY nRBC Abs Auto 0.000 0.000 - [place] DOV 0.[address] [facility] x10(3)/[facility] LABORATORY Specimen Anatomical Collection Method Collection Time Receive d Time (Source) Location / / Volume Laterality Blood specimen 12/05/2019 1:00 PM 020 1:13 (specimen) EDT PM EDT Resulting Agency Comment Spec In Lab Gretchen Yoon MD HEMATOLOGY ORDERABLES Performing Organization Address City/State/Z[place] [address] EKG 12 Lead (12/05/2019 10:52 AM EDT) Component Value Ref Range Test Analysis Performed Pathologis t Method Time At Signature Ventricular rate 72 BPM MUSE SYSTEM Atrial Rate 72 BPM MUSE SYSTEM P-R Interval 138 ms MUSE SYSTEM QRS Duration 96 ms MUSE SYSTEM Q-T Interval 396 ms MUSE SYSTEM QTC Calculated 433 ms MUSE SYSTEM (Bezet) Calculated P Luck 65 degrees MUSE SYSTEM Calculated R Luck 13 degrees MUSE SYSTEM Calculated T Luck 0 degrees MUSE SYSTEM INTERPRETATION Sinus rhythm Occasional Premature ventricular complexe s MUSE SYSTEM Possible Inferior infarct (cited on or before 29-NOV-2019) Abnormal ECG When compared with ECG of 04-DEC-2019 10:43, Sinus rhythm has replaced Atrial fibrillation Vent. rate has decreased BY ??86 BPM Confirmed by MD Ceja Daniel ([id number]) on 12/05/2019 3:55:22 PM Specimen Anatomical Collection Method Collection Time Receive d Time (Source) Location / / Volume Laterality 12/05/2019 10:52 12/05/2019 3:55 AM EDT PM EDT Paris Lagos MD ECG ORDERABLES Performing Organization Address City/State/ZIP Code Phon e Number MUSE SYSTEM Duplex Study for DVT, Bilat legs (12/05/2019 7:00 AM EDT) Component Value Ref Test Analysis Performed At [facility] gist Range Method Time Signature VB Text Department: Vascular Surgery Lab VASCUBASE Report Patient: [id number] (ANGEL LUIS SALINAS) CPT: 55177 ICD10: I26.99 Referring Physician: GRETCHEN YOON ?? [...] VB Text End of Report VASCUBASE Report Anatomical Region Laterality Modality Other Specimen (Source) Anatomical Collection Method Collection Time Re ceived Time Location / / Volume Laterality 12/05/2019 7:00 AM EDT Gretchen Yoon MD VASCULAR ORDERABLES Magnesium (12/05/2019 4:18 AM EDT) P athologist Signature Magnesium 0.87 0.69 - 1.07 [facility] mmol/L [facility] Specimen Anatomical Collection Method Collection Time Receive d Time (Source) Location / / Volume Laterality Blood specimen 12/05/2019 4:18 AM 020 4:31 (specimen) EDT AM EDT Resulting Agency Comment Spec In Lab Gretchen Yoon MD CHEMISTRY ORDERABLES Performing Organization Address City/State/ZIP [place] [address] (ABNORMAL) BMP w/fasting Glucose (12/05/2019 4:18 AM EDT) P athologist Signature Glucose 104 (H) 65 - 99 [facility] Fasting mg/dL [facility] Comment: ?Fasting* Glucose Interpretive C riteria [...] of Diabetes Mellitus, Position Statement from the [place] [employer]. ??Diabete s Care, Volume 33, Supplement 1, Jul 2009 BUN 21 (H) 10 - 20 mg/dL [facility] LABORATORY Creatinine 1.02 0.80 - 1.50 mg/dL [facility] LABOR[facility] Sodium 136 135 - 145 [...] estions. Chloride 103 98 - 107 mmol/L [facility] CO2 21 (L) 22 - 31 mmol/L [facility] Anion Gap 12 5 - 15 mmol/L [facility] Calcium 8.8 8.5 - 10.5 mg/dL [facility] Estimated GFR 73 >=60 mL/min/1.73 m?? [facility] Comment: The eGFR was calculated using the CKD-EP I equation. As with all creatinine based estimates of kidney function, eGFR values calculated with the CKD-EPI equation are not accurate in patients wi th acute kidney failure, extremes of body mass or the acutely ill. [email or web address]://[employer]/[facility] COALGATEnkf eGFR 84 >=60 mL/min/1.73 m?? [facility] Comment: The eGFR was calculated using the CKD-EP I equation. As with all creatinine based estimates of kidney function, eGFR values calculated with the CKD-EPI equation are not accurate in patients wi th acute kidney failure, extremes of body mass or the acutely ill. http://[employer]/[facility] COALGATEnkf Specimen Anatomical Collection Method Collection Time Receive d Time (Source) Location / / Volume Laterality Blood specimen 12/05/2019 4:18 AM 020 4:31 (specimen) EDT AM EDT Resulting Agency Comment Spec In Lab Gretchen Yoon MD CHEMISTRY ORDERABLES Performing Organization Address City/State/Z[place] [address] (ABNORMAL) Hemogram (12/05/2019 4:18 AM EDT) Analysis Performed At Patho logist Time Signature WBC 8.6 4.0 - 9.5 M[place] DOV x10(3)/[facility] LABORATORY RBC 4.28 (L) 4.58 - [place] DOV 5.[address] [facility] x10(6)/[facility] LABORATORY Hemoglobin 12.4 (L) 13.7 - [facility] 16.[facility] gm/dL [facility] Hematocrit 37.3 (L) 40.5 - [facility] 48.5 % [facility] MCV 87.1 82.9 - [facility] 93.1 [facility] LABORATORY MCH 29.0 27.5 - [place] DOV 32.1 pg [facility] MCHC 33.2 32.0 - [place] DOV 35.7 gm/dL [facility] Platelets 163 145 - 357 [facility] x10(3)/[facility] LABORATORY RDWSD 46.4 (H) 36.0 - [facility] DOV 45.0 [facility] LABORATORY RDWCV 14.4 (H) 11.4 - [facility] DOV 13.8 % [facility] MPV 11.7 7.6 - 12.9 [place] DOV [facility] LABORATORY nRBC % Auto 0.0 % [facility]OR[facility] nRBC Abs Auto 0.000 0.000 - [place] DOV 0.[address] [facility] x10(3)/[facility] LABORATORY Specimen Anatomical Collection Method Collection Time Receive d Time (Source) Location / / Volume Laterality Blood specimen 12/05/2019 4:18 AM 020 4:31 (specimen) EDT AM EDT Resulting Agency Comment Spec In Lab Gretchen Yoon MD HEMATOLOGY ORDERABLES Performing Organization Address City/State/ZIP Code Phon e Number [place] [id number] HOSPITAL LABORATORY Drive CT Cardiac for Morphology [...] For questions regarding this report, please contact city hospital number below. ? Electronically signed by: Roselyn Luciano, [facility] ([phone]), at 12/04/2019 6:16 PM Narrative 12/04/2019 6:16 [...] from neck/greatest puja meter to back wall: MAMI 91, CAU 13: ??19 mm CORTES ??1, [...] from neck/greatest puja meter to back wall: MAMI 91, CAU 13: 19 mm CORTES 1, [...] by: Roselyn Luciano [facility] ([phone]), at 12/04/2019 6:16 PM Gretchen Yoon MD IMG CT ORDERABLES (ABNORMAL) Hemogram (12/04/2019 12:55 PM EDT) Analysis Performed At Patho logist Time Signature WBC 8.9 4.0 - 9.5 [facility] x10(3)/[facility] LABORATORY RBC 4.69 4.58 - [facility] 5.[address] [facility] x10(6)/[facility] LABORATORY Hemoglobin 13.5 (L) 13.7 - [facility] 16.5 gm/dL [facility] Hematocrit 41.7 40.5 - [facility] % [facility] MCV 88.9 82.9 - [facility] 93.1 [facility] LABORATORY MCH 28.8 27.5 - MELINA MONAE 32.1 pg [facility] MCHC 32.4 32.0 - M[place] MONAE 35.7 gm/dL [facility] Platelets 196 145 - 357 [facility] x10(3)/[facility] LABORATORY RDWSD 46.7 (H) 36.0 - MELINA MONAE 45.0 [facility] LABORATORY RDWCV 14.5 (H) 11.4 - MELINA DOV 13.8 % [facility] MPV 12.1 7.6 - 12.9 MELINA MONAE [facility] LABORATORY nRBC % Auto 0.0 % [facility] nRBC Abs Auto 0.000 0.000 - MELINA MONAE 0.[address] [facility] x10(3)/[facility] LABORATORY Specimen Anatomical Collection Method Collection Time Receive d Time (Source) Location / / Volume Laterality Blood specimen 12/04/2019 12:55 0 1:06 (specimen) PM EDT PM EDT Resulting Agency Comment Spec In Lab Gretchen Yoon MD HEMATOLOGY ORDERABLES Performing Organization Address City/State/Z[place] [address] EKG 12 Lead (12/04/2019 10:43 AM EDT) Component Value Ref Range Test Analysis Performed Pathologis t Method Time At Signature Ventricular rate 158 BPM MUSE SYSTEM Atrial Rate 102 BPM MUSE SYSTEM QRS Duration 92 ms MUSE SYSTEM Q-T Interval 294 ms MUSE SYSTEM QTC Calculated 476 ms MUSE SYSTEM (Bezet) Calculated R Luck 17 degrees MUSE SYSTEM Calculated T Luck 90 degrees MUSE SYSTEM INTERPRETATION Atrial fibrillation with rapid ventricular response MUSE SYSTEM Possible Inferior infarct (cited on or before 29-NOV-2019) Abnormal ECG When compared with ECG of 30-NOV-2019 21:07, Atrial fibrillation has replaced Sinus rhythm Vent. rate has increased BY ??65 BPM Confirmed by MD Brenna, Faustino ([id number]) on 12/05/2019 8:59:44 AM Specimen Anatomical Collection Method Collection Time Receive d Time (Source) Location / / Volume Laterality 12/04/2019 10:43 12/05/2019 8:59 AM EDT AM EDT Gretchen Yoon MD ECG ORDERABLES Performing Organization Address City/State/ZIP Code Phon e Number MUSE SYSTEM (ABNORMAL) Magnesium (12/04/2019 4:28 AM EDT) athologist Signature Magnesium 1.17 (H) 0.69 - 1.[address] mmol/L [facility] Specimen Anatomical Collection Method Collection Time Receive d Time (Source) Location / / Volume Laterality Blood specimen 12/04/2019 4:28 AM 020 4:40 (specimen) EDT AM EDT Resulting Agency Comment Spec In Lab Gretchen Yoon MD CHEMISTRY ORDERABLES Performing Organization Address City/State/[place] [address] (ABNORMAL) BMP w/fasting Glucose (12/04/2019 4:28 AM EDT) athologist Signature Glucose 108 (H) 65 - 99 [facility] Fasting mg/dL [facility] Comment: ?Fasting* Glucose Interpretive C riteria [...] of Diabetes Mellitus, Position Statement from the [place] [employer]. ??Diabete s Care, Volume 33, Supplement 1, Jul 2009 BUN 19 10 - 20 mg/dL [facility] LABORATORY Creatinine 0.89 0.80 - 1.50 mg/dL [facility] LABORATORY Sodium 135 135 - 145 [...] estions. Chloride 104 98 - 107 mmol/L [facility] LABORATORY CO2 19 (L) 22 - 31 mmol/L [facility]OR[facility] Anion Gap 12 5 - 15 mmol/L [facility] LABORATORY Calcium 8.5 8.5 - 10.5 mg/dL [facility] LABORATORY Estimated GFR 85 >=60 mL/min/1.73 m?? [facility] LABOR[facility] Comment: The eGFR was calculated using the CKD-EP I equation. As with all creatinine based estimates of kidney function, eGFR values calculated with the CKD-EPI equation are not accurate in patients wi th acute kidney failure, extremes of body mass or the acutely ill. http://[email or web address]/[facility]ALGATEnkf eGFR 98 >=60 mL/min/1.73 m?? [facility] Comment: The eGFR was calculated using the CKD-EP I equation. As with all creatinine based estimates of kidney function, eGFR values calculated with the CKD-EPI equation are not accurate in patients wi th acute kidney failure, extremes of body mass or the acutely ill. http://[email or web address]/[facility]ALGATEnkf Specimen Anatomical Collection Method Collection Time Receive d Time (Source) Location / / Volume Laterality Blood specimen 12/04/2019 4:28 AM 020 4:40 (specimen) EDT AM EDT Resulting Agency Comment Spec In Lab Gretchen Yoon MD CHEMISTRY ORDERABLES Performing Organization Address City/State/Z[place] [address] (ABNORMAL) Hemogram (12/04/2019 4:28 AM EDT) Analysis Performed At Patho logist Time Signature WBC 7.8 4.0 - 9.5 [facility] x10(3)/[facility] LABORATORY RBC 4.10 (L) 4.58 - [facility] 5.[address] [facility] x10(6)/[facility] LABORATORY Hemoglobin 12.0 (L) 13.7 - MEL[place] DOV 16.5 gm/dL [facility] Hematocrit 36.5 (L) 40.5 - MELINA MONAE 48.5 % [facility] MCV 89.0 82.9 - [place] 93.1 [facility] LABORATORY MCH 29.3 27.5 - [place] 32.1 pg [facility] MCHC 32.9 32.0 - [place] 35.7 gm/dL [facility] Platelets 151 145 - 357 MELINA MOODY x10(3)/[facility] LABORATORY RDWSD 46.9 (H) 36.0 - [place] 45.0 [facility] LABORATORY RDWCV 14.4 (H) 11.4 - [place] 13.8 % [facility] MPV 12.2 7.6 - 12.9 MELINA MONAE [facility] LABORATORY nRBC % Auto 0.0 % [facility] LABORATORY nRBC Abs Auto 0.000 0.000 - M[place] MONAE 0.[address] [facility] x10(3)/[facility] LABORATORY Specimen Anatomical Collection Method Collection Time Receive d Time (Source) Location / / Volume Laterality Blood specimen 12/04/2019 4:28 AM 020 4:40 (specimen) EDT AM EDT Resulting Agency Comment Spec In Lab Gretchen Yoon MD HEMATOLOGY ORDERABLES Performing Organization Address City/State/Z[place] [address] Potassium (12/03/2019 7:55 PM EDT) P athologist Signature Potassium 3.9 3.5 - 5.0 [facility]L [facility] Comment: Please note: ??Patients with WBC [...] Organization Address City/State/ZIP [place] [address] Potassium (12/03/2019 1:57 PM EDT) P athologist Signature Potassium 3.7 3.5 - 5.0 M[place] DOV mmol/L [facility] Comment: Please note: ??Patients with WBC [...] Yoon MD CHEMISTRY ORDERABLES Performing Organization Address City/[facility]/ZIP [place] [address] (ABNORMAL) Hemogram (12/03/2019 1:57 PM EDT) Analysis Performed At Patho logist Time Signature WBC 8.8 4.0 - 9.5 M[facility] DOV x10(3)/[facility] LABORATORY RBC 4.27 (L) 4.58 - M[place] DOV 5.[address] [facility] x10(6)/[facility] LABORATORY Hemoglobin 12.5 (L) 13.7 - [place] DOV 16.5 gm/dL [facility] Hematocrit 37.5 (L) 40.5 - [place] DOV 48.5 % [facility] MCV 87.8 82.9 - [place] DOV 93.1 [facility] LABORATORY MCH 29.3 27.5 - M[place] DOV 32.1 pg [facility] MCHC 33.3 32.0 - [place] DOV 35.7 gm/dL [facility] Platelets 158 145 - 357 M[facility] DOV x10(3)/[facility] LABORATORY RDWSD 46.9 (H) 36.0 - [place] DOV 45.0 [facility] LABORATORY RDWCV 14.5 (H) 11.4 - [place] DOV 13.8 % [facility] MPV 12.2 7.6 - 12.9 MELINA MONAE fL [facility] nRBC % Auto 0.0 % [facility]ORATORY nRBC Abs Auto 0.000 0.000 - M[place] MONAE 0.[address] [facility] x10(3)/[facility] LABORATORY Specimen Anatomical Collection Method Collection Time Receive d Time (Source) Location / / Volume Laterality Blood specimen 12/03/2019 1:57 PM 020 2:21 (specimen) EDT PM EDT Resulting Agency Comment Spec In Lab Gretchen Yoon MD HEMATOLOGY ORDERABLES Performing Organization Address City/State/ZIP Code Phon e Number [address] Magnesium (12/03/2019 4:02 AM EDT) P athologist Signature Magnesium 0.79 0.69 - 1.07 [facility]L [facility] Specimen Anatomical Collection Method Collection Time Receive d Time (Source) Location / / Volume Laterality Blood specimen 12/03/2019 4:02 AM 020 4:16 (specimen) EDT AM EDT Resulting Agency Comment Spec In Lab Gretchen Yoon MD CHEMISTRY ORDERABLES Performing Organization Address City/[facility]/ZIP Code Phon e Number [address] (ABNORMAL) BMP w/fasting Glucose (12/03/2019 4:02 AM EDT) P athologist Signature Glucose 100 (H) 65 - [address] [address] [facility] Fasting mg/dL [facility] Comment: ?Fasting* Glucose Interpretive C riteria [...] of Diabetes Mellitus, Position Statement from the [place] [employer]. ??Diabete s Care, Volume 33, Supplement 1, Jul 2009 BUN 17 10 - 20 mg/dL [facility] LABORATORY Creatinine 0.95 0.80 - 1.50 mg/dL [facility] Sodium 136 135 - 145 [...] estions. Chloride 103 98 - 107 mmol/L [facility] CO2 18 (L) 22 - 31 mmol/L [facility] Anion Gap 15 5 - 15 mmol/L [facility] Calcium 8.3 (L) 8.5 - 10.5 mg/dL [facility] Estimated GFR 79 >=60 mL/min/1.73 m?? [facility] Comment: The eGFR was calculated using the CKD-EP I equation. As with all creatinine based estimates of kidney function, eGFR values calculated with the CKD-EPI equation are not accurate in patients wi th acute kidney failure, extremes of body mass or the acutely ill. http://[email or web address]/[facility]GATEnkf eGFR 92 >=60 mL/min/1.73 m?? [facility] Comment: The eGFR was calculated using the CKD-EP I equation. As with all creatinine based estimates of kidney function, eGFR values calculated with the CKD-EPI equation are not accurate in patients wi th acute kidney failure, extremes of body mass or the acutely ill. [email or web address]://[email or web address]/[facility]GATEnkf Specimen Anatomical Collection Method Collection Time Receive d Time (Source) Location / / Volume Laterality Blood specimen 12/03/2019 4:02 AM 020 4:16 (specimen) EDT AM EDT Resulting Agency Comment Spec In Lab Gretchen Yoon MD CHEMISTRY ORDERABLES Performing Organization Address City/State/ZIP Code Phon e Number [place], [place] [id number] [place] [address] (ABNORMAL) Hemogram (12/03/2019 4:02 AM EDT) Analysis Performed At Patho logist Time Signature WBC 9.1 4.0 - 9.5 [facility] x10(3)/[facility] LABORATORY RBC 4.01 (L) 4.58 - [facility] DOV 5.54 [facility] x10(6)/[facility] LABORATORY Hemoglobin 11.8 (L) 13.7 - [facility] 16.5 gm/dL [facility] Hematocrit 35.6 (L) 40.5 - [facility] 48.5 % [facility] MCV 88.8 82.9 - [facility] 93.1 [facility] LABORATORY MCH 29.4 27.5 - [place] DOV 32.1 pg [facility] MCHC 33.1 32.0 - [place] DOV 35.7 gm/dL [facility] Platelets 130 (L) 145 - 357 [facility] x10(3)/[facility] LABORATORY RDWSD 46.6 (H) 36.0 - [place] DOV 45.0 [facility] LABORATORY RDWCV 14.4 (H) 11.4 - [facility] DOV 13.8 % [facility] MPV 12.4 7.6 - 12.9 [facility] LABORATORY nRBC % Auto 0.0 % [facility] LABORATORY nRBC Abs Auto 0.000 0.000 - [place] DOV 0.[address] [facility] x10(3)/[facility] LABORATORY Specimen Anatomical Collection Method Collection Time Receive d Time (Source) Location / / Volume Laterality Blood specimen 12/03/2019 4:02 AM 020 4:16 (specimen) EDT AM EDT Resulting Agency Comment Spec In Lab Gretchen Yoon MD HEMATOLOGY ORDERABLES Performing Organization Address City/[facility]/ZIP [place] [address] XR Chest One View [...] Signature WBC 10.6 (H) 4.0 - 9.5 [facility] DOV x10(3)/[facility] LABORATORY RBC 4.00 (L) 4.58 - [place] DOV 5.[address] [facility] x10(6)/[facility] LABORATORY Hemoglobin 11.9 (L) 13.7 - [place] DOV 16.5 gm/dL [facility] Hematocrit 35.7 (L) 40.5 - [facility] DOV 48.5 % [facility] MCV 89.3 82.9 - [place] DOV 93.1 [facility] LABORATORY MCH 29.8 27.5 - [place] DOV 32.1 pg [facility] MCHC 33.3 32.0 - [place] DOV 35.7 gm/dL [facility] Platelets 120 (L) 145 - [address] [facility] [address] x[facility](3[facility] LABORATORY RDWSD 47.5 (H) 36.0 - [place] DOV 45.0 [facility] LABORATORY RDWCV 14.6 (H) 11.4 - [place] DOV 13.8 % [facility] MPV 12.0 7.6 - 12.9 [place] DOV [facility] LABORATORY nRBC % Auto 0.0 % [facility]OR[facility] nRBC Abs Auto 0.000 0.000 - [place] DOV 0.[address] [facility] x10(3)/[facility] LABORATORY Specimen Anatomical Collection Method Collection Time Receive d Time (Source) Location / / Volume Laterality Blood specimen 12/02/2019 12:50 0 1:22 (specimen) PM EDT PM EDT Resulting Agency Comment Spec In Lab Gretchen Yoon MD HEMATOLOGY ORDERABLES Performing Organization Address City/State/[place] [address] Blue Tube HOLD (12/02/2019 4:55 AM EDT) P athologist Signature Blue Hold Sample in [facility] lab. [facility] Specimen Anatomical Collection Method Collection Time Receive d Time (Source) Location / / Volume Laterality Blood specimen Venous Draw / 12/02/2019 4:55 AM 2019 5:03 (specimen) Unknown EDT AM EDT Darrell Glasgow MD HEMATOLOGY ORDERABLES Performing Organization Address City/State/ZIP Code Phon e Number [address] Magnesium (12/02/2019 4:55 AM EDT) athologist Signature Magnesium 0.85 0.69 - 1.07 [facility] mmol/L [facility] Specimen Anatomical Collection Method Collection Time Receive d Time (Source) Location / / Volume Laterality Blood specimen 12/02/2019 4:55 AM 020 5:02 (specimen) EDT AM EDT Resulting Agency Comment Spec In Lab Gretchen Yoon MD CHEMISTRY ORDERABLES Performing Organization Address City/State/ZIP Code Phon e Number [address] (ABNORMAL) BMP w/fasting Glucose (12/02/2019 4:55 AM EDT) P athologist Signature Glucose 114 (H) 65 - 99 [facility] Fasting mg/dL [facility] Comment: ?Fasting* Glucose Interpretive C riteria [...] of Diabetes Mellitus, Position Statement from the [place] [employer]. ??Diabete s Care, Volume 33, Supplement 1, Jul 2009 BUN 13 10 - 20 mg/dL [facility] LABORATORY Creatinine 0.93 0.80 - 1.50 mg/dL [facility] Sodium 135 135 - 145 [...] estions. Chloride 105 98 - 107 mmol/L [facility] CO2 18 (L) 22 - 31 mmol/L [facility] Anion Gap 12 5 - 15 mmol/L [facility]ORY Calcium 8.1 (L) 8.5 - 10.5 mg/dL [facility] Estimated GFR 81 >=60 mL/min/1.73 m?? [facility] Comment: The eGFR was calculated using the CKD-EP I equation. As with all creatinine based estimates of kidney function, eGFR values calculated with the CKD-EPI equation are not accurate in patients wi th acute kidney failure, extremes of body mass or the acutely ill. http://[employer]/[facility]GATEnkf eGFR 94 >=60 mL/min/1.73 m?? [facility] Comment: The eGFR was calculated using the CKD-EP I equation. As with all creatinine based estimates of kidney function, eGFR values calculated with the CKD-EPI equation are not accurate in patients wi th acute kidney failure, extremes of body mass or the acutely ill. http://[employer]/[facility]GATEnkf Specimen Anatomical Collection Method Collection Time Receive d Time (Source) Location / / Volume Laterality Blood specimen 12/02/2019 4:55 AM 020 5:02 (specimen) EDT AM EDT Resulting Agency Comment Spec In Lab Gretchen Yoon MD CHEMISTRY ORDERABLES Performing Organization Address City/State/ZIP Code Phon e Number [address] (ABNORMAL) Hemogram (12/02/2019 4:55 AM EDT) Analysis Performed At Patho logist Time Signature WBC 9.3 4.0 - 9.[address] x[facility](3[facility] LABORATORY RBC 3.71 (L) 4.58 - [place] DOV 5.[address] [facility] x10(6)/[facility] LABORATORY Hemoglobin 10.8 (L) 13.7 - [facility] 16.[facility] gm/dL [facility] Hematocrit 33.1 (L) 40.5 - [facility] 48.5 % [facility] MCV 89.2 82.9 - [facility] 93.1 [facility] LABORATORY MCH 29.1 27.5 - [place] DOV 32.1 pg [facility] MCHC 32.6 32.0 - [place] DOV 35.7 gm/dL [facility] Platelets 93 (L) 145 - 357 [facility] x10(3)/[facility] LABORATORY RDWSD 47.1 (H) 36.0 - [place] DOV 45.0 [facility] LABORATORY RDWCV 14.6 (H) 11.4 - [facility] DOV 13.8 % [facility] MPV 11.7 7.6 - 12.[address] [facility] nRBC % Auto 0.0 % [facility] LABORATORY nRBC Abs Auto 0.000 0.000 - [place] DOV 0.[address] [facility] x10(3)/[facility] LABORATORY Specimen Anatomical Collection Method Collection Time Receive d Time (Source) Location / / Volume Laterality Blood specimen 12/02/2019 4:55 AM 020 5:02 (specimen) EDT AM EDT Resulting Agency Comment Spec In Lab Gretchen Yoon MD HEMATOLOGY ORDERABLES Performing Organization Address City/State/ZIP Code Phon e Number [address] Transfuse 1 unit platelets, [...] For questions regarding this report, please contact [facility] number below. ? Electronically signed by: Angel Luis Barboza MD, [facility] ([phone]), at 12/01/2019 8:02 PM Narrative 12/01/2019 8:02 [...] 6:20 PM EDT) athologist Signature Dispensed? Yes [facility]OR[facility]ORY Specimen Anatomical Collection Method Collection Time Receive d Time (Source) Location / / Volume Laterality Blood specimen 12/01/2019 6:20 PM 020 6:18 (specimen) EDT PM EDT Gretchen Yoon MD BLOOD BANK ORDERABLES Performing Organization Address City/State/ZIP Code [facility] [place] [address] Duplex for DVT, Arm, Unilat (12/01/2019 5:08 PM EDT) Component Value Ref Test Analysis Performed At [facility] Range Method Time Signature VB Text Department: Vascular Surgery Lab VASCUBASE Report Patient: [id number] (ANGEL LUIS SALINAS) CPT: 48803 ICD10: R60.0 Referring Physician: GRETCHEN YOON ?? [...] VB Text End of Report VASCUBASE Report Anatomical Region Laterality Modality Other Specimen (Source) Anatomical Collection Method Collection Time Re ceived Time Location / / Volume Laterality 12/01/2019 5:08 PM EDT Gretchen Yoon MD VASCULAR ORDERABLES CT Head wo Contrast (Generic) (12/01/2019 2:29 [...] For questions regarding this report, please contact city [facility] number below. ? Electronically signed by: Merari Collins [facility] ([phone]), at 12/01/2019 3:53 PM Narrative 12/01/2019 3:53 PM EDT EXAMINATION: CT HEAD WO CONTRAST (GENERIC) CLINICAL HISTORY: Headache, intracranial hemorrhage suspected Serial CT scan: please assess for propag ation of known ICH noted on prior Head CT/imaging. TECHNIQUE: CT head performed without intravenous co ntrast administration. COMPARISON: Head CT 11/30/2019. CT [facility] 11/01. FINDINGS: Ventricles are normal [...] Head CT 11/30/2019. CT [facility] 11/01. FINDINGS: Ventricles are normal [...] Scan, Peripheral Blood (12/01/2019 12:51 PM EDT) [facility] Method Time Signature Plat Estimate Decreased [facility] RBC Morphology Normal [facility] Giant Less than 1 /HPF [facility] LABORATORY Specimen Anatomical Collection Method Collection Time Receive d Time (Source) Location / / Volume Laterality Blood specimen 12/01/2019 12:51 0 1:05 (specimen) PM EDT PM EDT Resulting Agency Comment Spec In Lab Riki Stevens MD HEMATOLOGY ORDERABLES Performing Organization Address City/State/Z[place] [address] (ABNORMAL) Differential, Automated (12/01/2019 12:51 PM EDT) [facility] Method Time Signature Neutrophils % 74.9 % [facility] Neutr Abs (ANC) 6.34 (H) 1.70 - [facility] 6.[address] [facility] x10(3)/[facility] LABORATORY Lymphocytes % 11.4 % [facility] Lymphocytes Abs 1.0 0.9 - 3.2 [facility] x10(3)/[facility] LABORATORY Monocytes % 12.4 % [facility] Monocyte Abs 1.0 (H) 0.3 - 0.9 [facility] x10(3)/[facility] LABORATORY Eosinophils % 0.4 % [facility] Eosinophils Abs 0.0 0.0 - 0.4 [facility] x10(3)/[facility] LABORATORY Basophils % 0.4 % [facility] Basophils Abs 0.0 0.0 - 0.1 [facility] x10(3)/[facility] LABORATORY Immature Gran % 0.50 % [facility] Comment: Immature granulocytes(IG's)percentage an d absolute count will include metamyelocytes, myelocytes, and promyelo cytes. Blood smears from CBCs yielding IG's will be scanned manually for concor dance. If this scan disagrees with the automated IG or if promyelocytes are not ed, a manual differential will be performed. Pita Gran Abs 0.04 0.00 - 0.04 x10(3)/[facility] MAR Y [facility] LABORATORY Specimen Anatomical Collection Method Collection Time Receive d Time (Source) Location / / Volume Laterality Blood specimen 12/01/2019 12:51 0 1:05 (specimen) PM EDT PM EDT Resulting Agency Comment Spec In Lab Riki Stevens MD HEMATOLOGY ORDERABLES Performing Organization Address City/State/Z[place] [address] (ABNORMAL) Hemogram (12/01/2019 12:51 PM EDT) Analysis Performed At Patho logist Time Signature WBC 8.4 4.0 - 9.5 [facility] x10(3)/[facility] LABORATORY RBC 3.69 (L) 4.58 - [facility] 5.[address] [facility] x10(6)/[facility] LABORATORY Hemoglobin 10.8 (L) 13.7 - [facility] [place] 16.5 gm/dL [facility] Hematocrit 32.4 (L) 40.5 [facility] 48.5 % [facility] MCV 87.8 82.9 - [facility] 93.1 [facility] LABORATORY MCH 29.3 27.5 - [facility] 32.1 pg [facility] MCHC 33.3 32.0 - [facility] g[facility]/dL [facility] Platelets 72 (L) 145 - 357 [facility] x10(3)/[facility] LABORATORY RDWSD 47.2 (H) 36.0 - [facility] 45.0 [facility] LABORATORY RDWCV 14.6 (H) 11.4 - [facility] 13.8 % [facility] MPV 12.2 7.6 - 12.9 [facility] LABORATORY nRBC % Auto 0.0 % [facility] nRBC Abs Auto 0.000 0.000 - [facility] 0.[address] [facility] x10(3)/[facility] LABORATORY Specimen Anatomical Collection Method Collection Time Receive d Time (Source) Location / / Volume Laterality Blood specimen 12/01/2019 12:51 0 1:05 (specimen) PM EDT PM EDT Resulting Agency Comment Spec In Lab Riki Stevens MD HEMATOLOGY ORDERABLES Performing Organization Address City/[facility]/ZIP Code Phon e Number [address] (ABNORMAL) Coox2 (12/01/2019 11:42 AM EDT) Analysis Performed At Patho logist Time Signature pO2 [place] 30 mmHg [facility] Hgb Blood Gas 11.6 (L) 13.7 - [facility] 16.5 gm/dL [facility] O2HB [place] 60.8 % [facility] COHB Coox 0.6 % [facility] Comment: Nonsmokers: 0.5-1.5% COHB Smokers: Variable, but usually less than 10% Toxic: 20-30% COHB Lethal: Greater than 60% COHB METHB Coox 0.6 <=1.5 % [facility] LAB[facility]ORY Source Coox Mixed Venous [facility] Specimen Anatomical Collection Method Collection Time Receive d Time (Source) Location / / Volume Laterality Blood specimen 12/01/2019 11:42 0 (specimen) AM EDT 11:42 AM EDT Gretchen Yoon MD CHEMISTRY ORDERABLES Performing Organization Address City/[facility]/ZIP Code Phon e Number [address] Sedimentation rate (12/01/2019 3:55 AM EDT) P athologist Signature Sed Rate 25 3 - 46 [facility] mm/hr [facility] Comment: Effective June 11, 2019 new [...] Winn MD HEMATOLOGY ORDERABLES Performing Organization Address City/[facility]/[place]IP [place] [address] (ABNORMAL) CRP, acute inflammation (12/01/2019 3:55 AM EDT) P athologist Signature CRP 92.5 (H) <=4.9 mg/L [facility] Specimen Anatomical Collection Method Collection Time Receive d Time (Source) Location / / Volume Laterality Blood specimen Venous Draw / 12/01/2019 3:55 AM 2019 4:06 (specimen) Unknown EDT AM EDT Resulting Agency Comment Spec In Lab Rossy Winn MD CHEMISTRY ORDERABLES Performing Organization Address City/[facility]/[place]IP [place] [address] ABORH Recheck Status (12/01/2019 3:55 AM EDT) [facility] Method Time Signature ABORH Recheck Order Placed [facility] LABORATORY ABORH Type Complete [facility] LABORATORY Specimen Anatomical Collection Method Collection Time Receive d Time (Source) Location / / Volume Laterality Blood specimen 12/01/2019 3:55 AM 020 4:15 (specimen) EDT AM EDT Resulting Agency Comment Spec In Lab Lewis Gee MD BLOOD BANK ORDERABLES Performing Organization Address City/[facility]/ZIP [place] [address] Antibody screen (12/01/2019 3:55 AM EDT) [facility] Method Time Signature Ab Screen Negative [facility] LABORATORY Expires at 12/04/2019 MELINA MONAE [id number] on: [facility] Specimen Anatomical Collection Method Collection Time Receive d Time (Source) Location / / Volume Laterality Blood specimen 12/01/2019 3:55 AM 020 4:15 (specimen) EDT AM EDT Resulting Agency Comment Spec In Lab Lewis Gee MD BLOOD BANK ORDERABLES Performing Organization Address City/[facility]/ZIP [place] [address] ABO/Rh Typing (12/01/2019 3:55 AM EDT) athologist Signature ABORh Type AB Pos [facility] Specimen Anatomical Collection Method Collection Time Receive d Time (Source) Location / / Volume Laterality Blood specimen 12/01/2019 3:55 AM 020 4:15 (specimen) EDT AM EDT Resulting Agency Comment Spec In Lab Lewis Gee MD BLOOD BANK ORDERABLES Performing Organization Address City/[facility]/[place] [address] (ABNORMAL) Troponin (12/01/2019 3:55 AM EDT) P athologist Signature Troponin-T 4.35 (H) 0.00 - MELINA MONAE 0.00 ng/mL [facility] Comment: result rechecked-slw The 99th percentile [...] additional sample may be indicated. Reference: Third Dupree Definition of Myocardial Infarction. Journal of the [place] [employer] 2012;60:1581-98 Specimen Anatomical Collection Method Collection Time Receive d Time (Source) Location / / Volume Laterality Blood specimen 12/01/2019 3:55 AM 020 4:00 (specimen) EDT AM EDT Resulting Agency Comment Spec In Lab Gretchen Yoon MD CHEMISTRY ORDERABLES Performing Organization Address City/State/ZIP [place] [address] Magnesium (12/01/2019 3:55 AM EDT) P athologist Signature Magnesium 0.96 0.69 - 1.07 [facility] mmol/L [facility] Specimen Anatomical Collection Method Collection Time Receive d Time (Source) Location / / Volume Laterality Blood specimen 12/01/2019 3:55 AM 020 4:00 (specimen) EDT AM EDT Resulting Agency Comment Spec In Lab Gretchen Yoon MD CHEMISTRY ORDERABLES Performing Organization Address City/State/ZIP [place] [address] (ABNORMAL) BMP w/fasting Glucose (12/01/2019 3:55 AM EDT) P athologist Signature Glucose 148 (H) 65 - 99 [facility] Fasting mg/dL [facility] Comment: ?Fasting* Glucose Interpretive C riteria [...] of Diabetes Mellitus, Position Statement from the [place] [employer]. ??Diabete s Care, Volume 33, Supplement 1, Jul 2009 BUN 11 10 - 20 mg/dL [facility] Creatinine 0.96 0.80 - 1.50 mg/dL [facility] Sodium 132 (L) 135 - [...] estions. Chloride 105 98 - 107 mmol/L [facility] CO2 17 (L) 22 - 31 mmol/L [facility] Anion Gap 10 5 - 15 mmol/L [facility] Calcium 7.6 (L) 8.5 - 10.5 mg/dL [facility] Estimated GFR 78 >=60 mL/min/1.73 m?? [facility] Comment: The eGFR was calculated using the CKD-EP I equation. As with all creatinine based estimates of kidney function, eGFR values calculated with the CKD-EPI equation are not accurate in patients wi th acute kidney failure, extremes of body mass or the acutely ill. [email or web address]://[email or web address]/[facility]GATEnkf eGFR 91 >=60 mL/min/1.73 m?? [facility] Comment: The eGFR was calculated using the CKD-EP I equation. As with all creatinine based estimates of kidney function, eGFR values calculated with the CKD-EPI equation are not accurate in patients wi th acute kidney failure, extremes of body mass or the acutely ill. http://[employer]/[facility]GATEnkf Specimen Anatomical Collection Method Collection Time Receive d Time (Source) Location / / Volume Laterality Blood specimen 12/01/2019 3:55 AM 020 4:00 (specimen) EDT AM EDT Resulting Agency Comment Spec In Lab Gretchen Yoon MD CHEMISTRY ORDERABLES Performing Organization Address City/State/ZIP Code Phon e Number [address] (ABNORMAL) Hemogram (12/01/2019 3:55 AM EDT) Analysis Performed At Patho logist Time Signature WBC 11.0 (H) 4.0 - 9.5 [facility] LABORATORY RBC 3.46 (L) 4.58 - MELINA DOV 5.[address] [facility] x10(6)/[facility] LABORATORY Hemoglobin 10.2 (L) 13.7 - [facility] 16.5 gm/dL [facility] Hematocrit 31.2 (L) 40.5 - [facility] 48.5 % [facility] MCV 90.2 82.9 - [facility] 93.1 [facility] LABORATORY MCH 29.5 27.5 - MELINA DOV 32.1 pg [facility] MCHC 32.7 32.0 - MELINA DOV 35.7 gm/dL [facility] Platelets 98 (L) 145 - 357 [facility] x10(3)/[facility] LABORATORY RDWSD 47.9 (H) 36.0 - [facility] DOV 45.0 [facility] LABORATORY RDWCV 14.6 (H) 11.4 - [facility] DOV 13.8 % [facility] MPV 12.3 7.6 - 12.9 [facility] DOV [facility] LABORATORY nRBC % Auto 0.0 % [facility] nRBC Abs Auto 0.000 0.000 - M[place]INA DOV 0.[address] [facility] x10(3)/[facility] LABORATORY Specimen Anatomical Collection Method Collection Time Receive d Time (Source) Location / / Volume Laterality Blood specimen 12/01/2019 3:55 AM 020 4:00 (specimen) EDT AM EDT Resulting Agency Comment Spec In Lab Gretchen Yoon MD HEMATOLOGY ORDERABLES Performing Organization Address City/State/ZIP [place] [address] (ABNORMAL) BLOOD GAS 2 ARTERIAL (11/30/2019 10:39 PM EDT) Analysis Performed At Patho logist Time Signature pH Art 7.45 7.35 - [facility] 7.45 [facility] pCO2 Art 23 (L) 35 - 45 [facility] mmHg [facility] pO2 Art 76 (L) 85 - 104 [facility] LABORATORY HCO3 Art 15.3 (L) 20.0 - [facility] 26.[address] [facility] mmol/L [facility] LABORATORY BE Art -8.7 (L) -3.0 - 3.0 [facility] mmol/L [facility] Hgb Blood Gas 11.7 (L) 13.7 - [facility] 16.5 gm/dL [facility] O2HB Art 94.2 94.0 - [facility] 97.0 % [facility] COHB Art 0.5 % [facility] Comment: Nonsmokers: 0.5-1.5% COHB Smokers: Variable, but usually less than 10% Toxic: 20-30% COHB Lethal: Greater than 60% COHB METHB Art 0.6 <=1.5 % [facility] Na Whole Blood 133 (L) 135 - 145 mmol/L [facility] K Whole Blood 3.8 3.5 - 5.0 mmol/L [facility] Comment: Please note: Patients with WBC >100,000 may have falsely elevated Potassium levels. Contact the Clinical Chemistry L aboratory if there are any questions. ICa Whole Blood 1.10 (L) 1.15 - 1.33 mmol/L [facility] Comment: Note: ??Total bilirubin higher than 20 m g/dL may lead to falsely low ionized calcium. CL Whole Blood 109 (H) 98 - 107 mmol/L [facility] Gluc Whole Bld 120 65 - 199 mg/dL [facility] Comment: Diabetes: >=200 mg/dL plus symp toms. Lactate WB 0.8 0.5 - 2.2 mmol/L [facility] FIO2 Art 100 % [facility] PF Ratio Art 76 [facility] Specimen Anatomical Collection Method Collection Time Receive d Time (Source) Location / / Volume Laterality Blood specimen 11/30/2019 10:39 0 (specimen) PM EDT 10:39 PM EDT Gretchen Yoon MD CHEMISTRY ORDERABLES Performing Organization Address [facility]/ZIP [facility] [place] [address] EKG 12 Lead (11/30/2019 [...] (Bezet) Calculated P 12 degrees MUSE SYSTEM Luck Calculated R 19 degrees MUSE SYSTEM Luck Calculated T -47 degrees MUSE SYSTEM Luck INTERPRETATION Sinus rhythm with Premature supraventricular complexes [...] Yoon MD ECG ORDERABLES Performing Organization Address [facility] Phon e Number MUSE SYSTEM (ABNORMAL) Urinalysis Microscopic Exam (11/30/2019 8:40 PM EDT) P athologist Signature RBC UA 27 (H) 0 - 3 /HPF [facility] WBC UA 4 (H) 0 - 3 /HPF [facility] Hyaline Cast 3 (H) 0 - 2 /LPF [facility] Specimen (Source) Anatomical Collection Method Collection Time Re ceived Time Location / / Volume Laterality Urine specimen 11/30/2019 8:40 11/30/2019 obtained via PM EDT 10:51 PM EDT indwelling urinary catheter (specimen) Resulting Agency Comment Spec In Lab Rossy Winn MD URINE ORDERABLES Performing Organization Address City/State/ZIP [place] [address] (ABNORMAL) Urinalysis with reflex Culture (11/30/2019 8:40 PM EDT) Patholo gist Method Time Signature Glucose UA Negative Negative [facility] mg/dL [facility] Protein UA Negative Negative [facility] mg/dL [facility] Bilirubin UA Negative Negative [facility] mg/dL [facility] Comment: Clinical correlation required for positi ve Urine Bilirubin results as false positive may occur with some drugs and d rug related products. If a false positive is suspected a serum total bili morales should be considered if clinically indicated. Urobilinogen UA Normal Normal mg/dL [facility] pH UA 5.5 5.0 - 8.0 [facility] Blood UA Moderate (A) Negative mg/dL [facility] Ketones UA 40 (A) Negative mg/dL [facility] Nitrite UA Negative Negative [facility] Leukocytes UA Trace (A) Negative [facility] LABORATORY Appearance UA Clear Clear [facility] Spec [place] UA 1.026 1.006 - 1.030 [facility] Color UA Yellow Yellow [facility] Culture Reflexed No [facility] Specimen (Source) Anatomical Collection Method Collection Time Re ceived Time Location / / Volume Laterality Urine specimen 11/30/2019 8:40 11/30/2019 obtained via PM EDT 10:51 PM EDT indwelling urinary catheter (specimen) Resulting Agency Comment Spec In Lab Gretchen Yoon MD URINE ORDERABLES Performing Organization Address City/State/ZIP [place] [address] (ABNORMAL) pro-Brain Natriuretic Peptide (11/30/2019 8:30 PM EDT) P athologist Signature ProBNP 2,802 (H) <=125 [facility] Specimen Anatomical Collection Method Collection Time Receive d Time (Source) Location / / Volume Laterality Blood specimen Venous Draw / 11/30/2019 8:30 PM 2019 8:36 (specimen) Unknown EDT PM EDT Resulting Agency Comment Spec In Lab Rossy Winn MD CHEMISTRY ORDERABLES Performing Organization Address City/[facility]/ZIP [place] [address] (ABNORMAL) Troponin (11/30/2019 8:30 PM EDT) P athologist Signature Troponin-T 5.04 (H) 0.00 - MELINA MONAE 0.00 ng/mL [facility] Comment: The 99th percentile for Troponin [...] additional sample may be indicated. Reference: Third Dupree Definition of Myocardial Infarction. Journal of the [place] [employer] 2012;60:1581-98 Specimen Anatomical Collection Method Collection Time Receive d Time (Source) Location / / Volume Laterality Blood specimen Venous Draw / 11/30/2019 8:30 PM 2019 8:36 (specimen) Unknown EDT PM EDT Resulting Agency Comment Spec In Lab Rossy Winn MD CHEMISTRY ORDERABLES Performing Organization Address City/[facility]/ZIP [place] [address] Magnesium (11/30/2019 8:30 PM EDT) athologist Signature Magnesium 0.79 0.69 - 1.07 [facility] mmol/L [facility] Specimen Anatomical Collection Method Collection Time Receive d Time (Source) Location / / Volume Laterality Blood specimen 11/30/2019 8:30 PM 020 8:35 (specimen) EDT PM EDT Resulting Agency Comment Spec In Lab Gretchen Yoon MD CHEMISTRY ORDERABLES Performing Organization Address City/State/ZIP [place] [address] (ABNORMAL) Basic Metabolic Panel (non-fasting) (11/30/2019 8:30 PM EDT) athologist Signature Glucose Lvl 132 65 - 199 [facility] mg/dL [facility] Comment: Diabetes: >=200 mg/dL plus symp toms BUN 12 10 - 20 mg/dL [facility] Creatinine 0.94 0.80 - 1.50 mg/dL [facility] Sodium 136 135 - 145 [...] Chloride 108 (H) 98 - 107 mmol/L [facility] CO2 17 (L) 22 - 31 mmol/L [facility] Anion Gap 11 5 - 15 mmol/L [facility] Calcium 7.9 (L) 8.5 - 10.5 mg/dL [facility] Estimated GFR 80 >=60 mL/min/1.73 m?? [facility] Comment: The eGFR was calculated using the CKD-EP I equation. As with all creatinine based estimates of kidney function, eGFR values calculated with the CKD-EPI equation are not accurate in patients wi th acute kidney failure, extremes of body mass or the acutely ill. http://[employer]/[facility]Enkf eGFR 93 >=60 mL/min/1.73 m?? [facility] Comment: The eGFR was calculated using the CKD-EP I equation. As with all creatinine based estimates of kidney function, eGFR values calculated with the CKD-EPI equation are not accurate in patients wi th acute kidney failure, extremes of body mass or the acutely ill. http://[employer]/[facility]GATEnkf Specimen Anatomical Collection Method Collection Time Receive d Time (Source) Location / / Volume Laterality Blood specimen 11/30/2019 8:30 PM 020 8:35 (specimen) EDT PM EDT Resulting Agency Comment Spec In Lab Gretchen Yoon MD CHEMISTRY ORDERABLES Performing Organization Address [facility] [place] [address] Blood culture (11/30/2019 8:30 PM EDT) Patholo gist Method Time Signature Blood Culture No growth MELINA DOV at 5 days. [facility] Specimen Anatomical Collection Method Collection Time Receive d Time (Source) Location / / Volume Laterality Blood specimen 11/30/2019 8:30 PM 020 9:40 (specimen) EDT PM EDT Comment: L HAND Resulting Agency Comment Spec In Lab Gretchen Yoon MD MICROBIOLOGY - BLOOD ORDERAB LES Performing Organization Address City/[facility] [place] [address] Blood culture (11/30/2019 8:30 PM EDT) Patholo gist Method Time Signature Blood Culture No growth MELINA DOV at 5 days. [facility] Specimen Anatomical Collection Method Collection Time Receive d Time (Source) Location / / Volume Laterality Blood specimen 11/30/2019 8:30 PM 020 9:40 (specimen) EDT PM EDT Comment: R HAND Resulting Agency Comment Spec In Lab Gretchen Yoon MD MICROBIOLOGY - BLOOD ORDERAB LES Performing Organization Address [facility] [place] [address] XR Chest One View [...] Time Signature pH Art 7.45 7.35 - [facility] 7.45 [facility] pCO2 Art 27 (L) 35 - 45 [facility] mmHg [facility] pO2 Art 68 (L) 85 - 104 [facility] mmHg [facility] HCO3 Art 18.2 (L) 20.0 - [facility] 26.[address] [facility] mmol/L HOSPITAL LABORATORY BE Art -5.9 (L) -3.0 - 3.0 [facility] mmol/L [facility] Hgb Blood Gas 12.4 (L) 13.7 - [facility] 16.5 gm/dL [facility] O2HB Art 93.1 (L) 94.0 - [facility] 97.0 % [facility] COHB Art 0.8 % [facility] Comment: Nonsmokers: 0.5-1.5% COHB Smokers: Variable, but usually less than 10% Toxic: 20-30% COHB Lethal: Greater than 60% COHB METHB Art 0.4 <=1.5 % [facility] Na Whole Blood 133 (L) 135 - 145 mmol/L [facility] K Whole Blood 3.6 3.5 - 5.0 mmol/L [facility] Comment: Please note: Patients with WBC >100,000 may have falsely elevated Potassium levels. Contact the Clinical Chemistry L aboratory if there are any questions. ICa Whole Blood 1.13 (L) 1.15 - 1.33 mmol/L [facility] Comment: Note: ??Total bilirubin higher than 20 m g/dL may lead to falsely low ionized calcium. CL Whole Blood 108 (H) 98 - 107 mmol/L [facility] Gluc Whole Bld 121 65 - 199 mg/dL [facility] Comment: Diabetes: >=200 mg/dL plus symp toms. Lactate WB 1.2 0.5 - 2.2 mmol/L [facility] Flow Art 5.0 LPM [facility] Specimen Anatomical Collection Method Collection Time Receive d Time (Source) Location / / Volume Laterality Blood specimen 11/30/2019 8:09 PM 020 8:09 (specimen) EDT PM EDT Gretchen Yoon MD CHEMISTRY ORDERABLES Performing Organization Address City/State/ZIP [place] [address] Angiogram [place] (11/30/2019 4:36 PM EDT) Anatomical [...] Luis Barboza MD, [facility] ([phone]), at 11/30/2019 5:04 PM Narrative 11/30/2019 5:04 PM EDT EXAMINATION: CT HEAD WO CONTRAST (GENERIC), CT ANGIOGRAM [place] CLINICAL HISTORY: Headache, intracranial hemorrhage suspected F/U on known ICH - assessing for propaga tion TECHNIQUE: CT head performed without intravenous co ntrast administration. CT angiogram [place] 65 cc Omnipaque 350 administered [...] HEAD WO CONTRAST (GENERI C), CT ANGIOGRAM [place] CLINICAL HISTORY: Headache, intracranial hemorrhage suspected F/U on known ICH - assessing for propaga tion TECHNIQUE: CT head performed without intravenous co ntrast administration. CT angiogram [place] 65 cc Omnipaque 350 administered [...] Luis Barboza MD, [facility] ([phone]), at 11/30/2019 5:04 PM Gretchen Yoon MD [...] CT HEAD WO CONTRAST (GENERIC), CT ANGIOGRAM [place] CLINICAL HISTORY: Headache, intracranial hemorrhage suspected F/U on known ICH - assessing for propaga tion TECHNIQUE: CT head performed without intravenous co ntrast administration. CT angiogram [place] 65 cc Omnipaque 350 administered [...] HEAD WO CONTRAST (GENERI C), CT ANGIOGRAM [place] CLINICAL HISTORY: Headache, intracranial hemorrhage suspected F/U on known ICH - assessing for propaga tion TECHNIQUE: CT head performed without intravenous co ntrast administration. CT angiogram [place] 65 cc Omnipaque 350 administered [...] Luis Barboza MD, [facility] ([phone]), at 11/30/2019 5:04 PM Gretchen Yoon MD [...] 453 ms MUSE SYSTEM (Bezet) Calculated P Luck 52 degrees MUSE SYSTEM Calculated R Luck 5 degrees MUSE SYSTEM Calculated T Luck -60 degrees MUSE SYSTEM INTERPRETATION Sinus rhythm [...] [place] ? (Age): 1945(74y) Med Rec#: ? [id number] ?Sex: ?M ? Site Loc: ? [facility] ?Ht / Wt: ??178(cm)/64(kg) Pt. Loc: ?CCU ? BSA: ?1.8 Study Date: ?? 11/30/2019 ?Pt. Type: Inpatient Tape: ? Referring: GILMER Reading: Tello Mejia ([id number]) Front Edger: Eve Lolita Diagnosis: *ST elevation (STEMI) myocardial [...] Vmax ?0.58 ? m/sec ? MV deceleration csqr230.05 ? m sec ? MV A-wave Vmax [...] ? Mid-Inferior ?Akinetic ? Mid-Inferoseptal ?Normal ? Street-Septal ? Normal ? Street-Anterior ? Normal ? Street-Lateral ?Normal ? Street-Inferior ? Hypokinetic ? Street-Tip ?Normal ? This report has been electronically sign ed by: _ Tello Mejia MD ? 11/30/2019 12: 45:27 Images reviewed and interpretation verif ied [facility] Cardiac Ultrasound Laboratory Procedure Note Tello Mejia MD - 11/30/2019Formatti ng of this note might be different from the original. Procedure: Transthoracic Echocardiogram Patient: RITA ACOSTA(Age): [age]y) Med Rec#: [id number] Sex: M Site Loc: [facility] Ht / Wt: 178(cm)/64(kg) Pt. Loc: CCU BSA: 1.8 Study Date: 11/30/2019 Pt. Type: Inpatie nt Tape: Referring: GILMER Reading: Tello Mejia ([id number]) Front Edger: Lolita Prado Diagnosis: *ST elevation (STEMI) myocardial [...] MV E-wave Vmax 0.58 m/sec MV deceleration banx417.05 msec MV A-wave Vmax 0.74 m/sec MV [...] Hypokinetic Mid-Posterolateral Hypokinetic Mid-Inferior Akinetic Mid-Inferoseptal Normal Street-Septal Normal Street-Anterior Normal Street-Lateral Normal Street-Inferior Hypokinetic Street-Tip Normal This report has been electronically sign ed by: _ Tello Mejia MD 11/30/2019 12:45:27 Images reviewed and interpretation verif ied [facility] Cardiac Ultrasound Laboratory Gretchen Yoon [...] Luis Barboza MD, [facility] ([phone]), at 11/30/2019 12:04 PM Narrative 11/30/2019 12:04 [...] [facility] Magnesium 0.88 0.69 - 1.07 [facility] Specimen Anatomical Collection Method Collection Time Receive d Time (Source) Location / / Volume Laterality Blood specimen Venous Draw / 11/30/2019 8:30 AM 2019 8:37 (specimen) Unknown EDT AM EDT Resulting Agency Comment Spec In Lab Rossy Winn MD CHEMISTRY ORDERABLES Performing Organization Address City/State/ZIP Code Phon e Number [address] (ABNORMAL) CK (11/30/2019 8:30 AM EDT) athologist [facility] CK, Total 1,645 (H) 0 - 200 [facility] unit/[facility] Specimen Anatomical Collection Method Collection Time Receive d Time (Source) Location / / Volume Laterality Blood specimen 11/30/2019 8:30 AM 020 8:32 (specimen) EDT AM EDT Resulting Agency Comment Spec In Lab Gretchen Yoon MD CHEMISTRY ORDERABLES Performing Organization Address City/[facility]/ZIP Code Phon e Number [address] (ABNORMAL) Troponin (11/30/2019 8:30 AM EDT) athologist Signature Troponin-T 8.04 (H) 0.00 - MELIAN MONAE 0.00 ng/mL [facility] Comment: result rechecked-rancho The 99th percentile [...] additional sample may be indicated. Reference: Third Dupree Definition of Myocardial Infarction. Journal of the [place] College of [employer]iology 2012;60:1581-98 Specimen Anatomical Collection Method Collection Time Receive d Time (Source) Location / / Volume Laterality Blood specimen 11/30/2019 8:30 AM 020 8:32 (specimen) EDT AM EDT Resulting Agency Comment Spec In Lab Gretchen Yoon MD CHEMISTRY ORDERABLES Performing Organization Address City/State/ZIP Code Phon e Number [facility] [place] [address] EKG 12 Lead (11/30/2019 7:57 AM EDT) Component Value Ref Range Test Analysis Performed Pathologis t Method Time At Signature Ventricular rate 64 BPM MUSE SYSTEM Atrial Rate 64 BPM MUSE SYSTEM P-R Interval 132 ms MUSE SYSTEM QRS Duration 78 ms MUSE SYSTEM Q-T Interval 420 ms MUSE SYSTEM QTC Calculated 433 ms MUSE SYSTEM (Bezet) Calculated P Luck 28 degrees MUSE SYSTEM Calculated R Luck 7 degrees MUSE SYSTEM Calculated T Luck -33 degrees MUSE SYSTEM INTERPRETATION Sinus rhythm [...] leads Confirmed by MD Charlene, Pepe Dawn () on 11/30/2019 11:37:32 AM Specimen Anatomical Collection Method Collection Time Receive d Time (Source) Location / / Volume Laterality 11/30/2019 7:57 AM 0 EDT 11:37 AM EDT Gretchen Yoon MD ECG ORDERABLES Performing Organization Address City/State/ZIP Code Phon e Number MUSE SYSTEM (ABNORMAL) BMP w/fasting Glucose (11/30/2019 2:15 AM EDT) athologist Signature Glucose 147 (H) 65 - 99 [facility] Fasting mg/dL [facility] Comment: ?Fasting* Glucose Interpretive C riteria [...] of Diabetes Mellitus, Position Statement from the [place] [employer] Association. ??Diabete s Care, Volume 33, Supplement 1, Jul 2009 BUN 13 10 - 20 mg/dL [facility] Creatinine 0.90 0.80 - 1.50 mg/dL [facility] Sodium 135 135 - 145 [...] Chloride 108 (H) 98 - 107 mmol/L [facility] CO2 16 (L) 22 - 31 mmol/L [facility] Anion Gap 11 5 - 15 mmol/L [facility] Calcium 7.5 (L) 8.5 - 10.5 mg/dL [facility] Estimated GFR 84 >=60 mL/min/1.73 m?? [facility] Comment: The eGFR was calculated using the CKD-EP I equation. As with all creatinine based estimates of kidney function, eGFR values calculated with the CKD-EPI equation are not accurate in patients wi th acute kidney failure, extremes of body mass or the acutely ill. http://[employer]/[facility]GATEnkf eGFR 98 >=60 mL/min/1.73 m?? [facility] Comment: The eGFR was calculated using the CKD-EP I equation. As with all creatinine based estimates of kidney function, eGFR values calculated with the CKD-EPI equation are not accurate in patients wi th acute kidney failure, extremes of body mass or the acutely ill. http://[employer]/[facility]GATEnkf Specimen Anatomical Collection Method Collection Time Receive d Time (Source) Location / / Volume Laterality Blood specimen 11/30/2019 2:15 AM 020 2:29 (specimen) EDT AM EDT Resulting Agency Comment Spec In Lab Gretchen Yoon MD CHEMISTRY ORDERABLES Performing Organization Address City/State/ZIP [place] [address] (ABNORMAL) Hemogram (11/30/2019 2:15 AM EDT) Analysis Performed At Patho logist Time Signature WBC 11.2 (H) 4.0 - 9.5 [facility] x10(3)/[facility] LABORATORY RBC 3.83 (L) 4.58 - [facility] 5.[address] [facility] x10(6)/[facility] LABORATORY Hemoglobin 11.4 (L) 13.7 - [facility] 16.5 gm/dL [facility] Hematocrit 35.2 (L) 40.5 - [facility] 48.5 % [facility] MCV 91.9 82.9 - M[place]INA WHITT[place] 93.1 [facility] LABORATORY MCH 29.8 27.5 - MELINA MARSHDOV 32.1 pg [facility] MCHC 32.4 32.0 - MEL[place] MARSHDOV 35.7 gm/dL [facility] Platelets 122 (L) 145 - 357 MELINA DOV x10(3)/[facility] LABORATORY RDWSD 49.8 (H) 36.0 - MELINA MARSHDOV 45.0 [facility] LABORATORY RDWCV 14.8 (H) 11.4 - MELINA MARSHDOV 13.8 % [facility] MPV 12.1 7.6 - 12.9 M[place] WH[place] [facility] LABORATORY nRBC % Auto 0.0 % [facility] nRBC Abs Auto 0.000 0.000 - M[place] 0.[address] [facility] x10(3)/[facility] LABORATORY Specimen Anatomical Collection Method Collection Time Receive d Time (Source) Location / / Volume Laterality Blood specimen 11/30/2019 2:15 AM 020 2:29 (specimen) EDT AM EDT Resulting Agency Comment Spec In Lab Gretchen Yoon MD HEMATOLOGY ORDERABLES Performing Organization Address City/State/ZIP Code Phon e Number [address] (ABNORMAL) CK (11/30/2019 2:15 AM EDT) athologist [facility] CK, Total 1,969 (H) 0 - 200 MEL[place] MONAE unit/L [facility] Specimen Anatomical Collection Method Collection Time Receive d Time (Source) Location / / Volume Laterality Blood specimen 11/30/2019 2:15 AM 020 2:29 (specimen) EDT AM EDT Resulting Agency Comment Spec In Lab Gretchen Yoon MD CHEMISTRY ORDERABLES Performing Organization Address City/[facility]/ZIP Code Phon e Number [address] (ABNORMAL) Troponin (11/30/2019 2:15 AM EDT) athologist Signature Troponin-T 11.73 (H) 0.00 - MEL[place] MONAE 0.00 ng/mL [facility] Comment: result rechecked-slw The 99th percentile [...] additional sample may be indicated. Reference: Third Dupree Definition of Myocardial Infarction. Journal of the [place] College [employer]iology 2012;60:1581-98 result rechecked- The [...] additional sample may be indicated. Reference: Third Dupree Definition of Myocardial Infarction. Journal of the [place] College of Cardiology 2012;60:1581-98 Corrected from 11.73 ng/ml [HI] on 11/29 3:11:51 EDT by Debi Hawley Specimen Anatomical Collection Method Collection Time Receive d Time (Source) Location / / Volume Laterality Blood specimen 11/30/2019 2:15 AM 020 2:29 (specimen) EDT AM EDT Resulting Agency Comment Spec In Lab Gretchen Yoon MD CHEMISTRY ORDERABLES Performing Organization Address City/[facility]/ZIP [facility] Phon e Number [address] LDL Cholesterol, Direct (11/30/2019 2:15 AM EDT) P athologist Signature LDL Chol 156 mg/dL [facility] LABORATORY Comment: Lowest Risk: <100 mg/dL Lower Risk: 100-129 mg/dL Borderline High Risk: 130-159 mg/dL High Risk: 160-189 mg/dL Very High Risk: >bu=250 mg/dL Specimen Anatomical Collection Method Collection Time Receive d Time (Source) Location / / Volume Laterality Blood specimen 11/30/2019 2:15 AM 020 2:29 (specimen) EDT AM EDT Resulting Agency Comment Spec In Lab Gretchen Yoon MD CHEMISTRY ORDERABLES Performing Organization Address City/[facility] [place] [address] (ABNORMAL) Hemoglobin A1c (11/30/2019 [...] [id number] Est Avg Gluc See note mg/dL [place] [...] into estimated average glucose values. ??Diabetes Care 2008:31(8):9952-5212. Specimen Anatomical Collection Method Collection Time Receive d Time (Source) Location / / Volume Laterality Blood specimen 11/30/2019 2:15 AM 020 2:29 (specimen) EDT AM EDT Resulting Agency Comment Spec In Lab Gretchen Yoon MD CHEMISTRY ORDERABLES Performing Organization Address City/State/ZIP [place] [address] Lipid Panel (Reflex Direct LDL) (11/30/2019 2:15 AM EDT) athologist Signature Chol, Total 195 mg/dL [facility] Comment: Lower Risk: <200 mg/dL Average Risk: 200-239 mg/dL Higher Risk: >vn=842 mg/dL Triglycerides 93 mg/dL [facility] Comment: Average Risk/Lower Risk: <150 mg/dL Borderline High Risk: 150-199 mg/dL High Risk: 200-499 mg/dL Very High Risk: >qu=147 mg/dL HDL 32 mg/dL [facility] Comment: Males: ?? Higher Risk: <40 mg/dL Females: ?? HIgher Risk: <50 mg/dL LDL Cholesterol 144 mg/dL [facility] Comment: Lowest Risk: <100 mg/dL Lower Risk: 100-129 mg/dL Borderline High Risk: 130-159 mg/dL High Risk: 160-189 mg/dL Very High Risk: >xq=991 mg/dL Chol/HDL Ratio 6.1 ratio [facility] Lipid Interpretation See Note [facility] Comment: Lipid management should be guided by a p atient? s ASCVD risk, goals and preferences. ACC/AHA Guidelines recommend high intens ity statin if clinical ASCVD or LDL greater than or equal to 190 mg/dL. http://[employer] ([employer]).com/XOQ-DVZ-Aqvovccrl Adults aged 40-75 with LDL 70-189 mg/dL should have their 10 year ASCVD risk estimated with the ACC/AHA ASCVD risk es timator http://tools.acc.org/WTAPF-Luhc-Dymwiaep r/ Statin should be discussed if risk [...] Organization Address City/State/[place] [address] (ABNORMAL) CK (11/29/2019 6:35 PM EDT) athologist [facility] CK, Total 2,780 (H) 0 - 200 [facility] unit/L [facility] Specimen Anatomical Collection Method Collection Time Receive d Time (Source) Location / / Volume Laterality Blood specimen 11/29/2019 6:35 PM 020 6:53 (specimen) EDT PM EDT Resulting Agency Comment Spec In Lab Gretchen Yoon MD CHEMISTRY ORDERABLES Performing Organization Address City/State/ZIP Code Phon e Number [address] (ABNORMAL) Troponin (11/29/2019 6:35 PM EDT) athologist [facility] Troponin-T 17.60 (H) 0.00 - [facility] 0.00 ng/mL [facility] Comment: result rechecked-az The 99th percentile [...] additional sample may be indicated. Reference: Third Dupree Definition of Myocardial Infarction. Journal of the [place] College of Cardiology 2012;60:1581-98 Specimen Anatomical Collection Method Collection Time Receive d Time (Source) Location / / Volume Laterality Blood specimen 11/29/2019 6:35 PM 020 6:53 (specimen) EDT PM EDT Resulting Agency Comment Spec In Lab Gretchen Yoon MD CHEMISTRY ORDERABLES Performing Organization Address City/State/ZIP Code Phon e Number [place] [id number]OS[address] Drive EKG 12 Lead (11/29/2019 3:58 PM EDT) [facility] gist Method Time Signature Ventricular rate 73 BPM MUSE SYSTEM Atrial Rate 73 BPM MUSE SYSTEM P-R Interval 152 ms MUSE SYSTEM QRS Duration 84 ms MUSE SYSTEM Q-T Interval 404 ms MUSE SYSTEM QTC Calculated 445 ms MUSE SYSTEM (Bezet) Calculated P Luck 50 degrees MUSE SYSTEM Calculated R Luck -4 degrees MUSE SYSTEM Calculated T Luck 19 degrees MUSE SYSTEM INTERPRETATION Sinus rhythm [...] Concepcion MD ECG ORDERABLES Performing Organization Address City/[facility]/ZIP Code Phon e Number MUSE SYSTEM XR [...] CLINICAL HISTORY: stemi (as entered by o [facility] provider in the order requisition) TECHNIQUE: [...] lung apex is excluded from the imaged [id number]. IMPRESSION: 1. ??New right internal jugular pulmonar [...] lung apex is excluded from the imaged [id number]. Procedure Note Estefani Harris MD - 11/29/2019Formattin [...] lung apex is excluded from the imaged [id number]. IMPRESSION 1. New right internal jugular pulmonary [...] (ABNORMAL) Differential, Automated (11/29/2019 2:32 PM EDT) [facility] Method Time Signature Neutrophils % 83.8 % [facility] Neutr Abs (ANC) 12.12 (H) 1.70 - [facility] 6.[address] [facility] x10(3)/[facility] LABORATORY Lymphocytes % 9.1 % [facility] Lymphocytes Abs 1.3 0.9 - 3.2 [facility] x10(3)/[facility] LABORATORY Monocytes % 6.2 % [facility] Monocyte Abs 0.9 0.3 - 0.9 [facility] x10(3)/[facility] LABORATORY Eosinophils % 0.0 % [facility] Eosinophils Abs 0.0 0.0 - 0.4 [facility] x10(3)/[facility] LABORATORY Basophils % 0.3 % [facility] Basophils Abs 0.0 0.0 - 0.1 [facility] x10(3)/[facility] LABORATORY Immature Gran % 0.60 % [facility] Comment: Immature granulocytes(IG's)percentage an d absolute count will include metamyelocytes, myelocytes, and promyelo cytes. Blood smears from CBCs yielding IG's will be scanned manually for ana nagy. If this scan disagrees with the automated IG or if promyelocytes are not ed, a manual differential will be performed. Pita Gran Abs 0.08 (H) 0.00 - 0.04 x10(3)/[facility] LABORATORY Specimen Anatomical Collection Method Collection Time Receive d Time (Source) Location / / Volume Laterality Blood specimen 11/29/2019 2:32 PM 020 2:55 (specimen) EDT PM EDT Resulting Agency Comment Spec In Lab Darrell Glasgow MD HEMATOLOGY ORDERABLES Performing Organization Address City/State/ZIP [place] [address] (ABNORMAL) Hemogram (11/29/2019 2:32 PM EDT) Analysis Performed At Patho logist Time Signature WBC 14.5 (H) 4.0 - 9.5 [facility] x10(3)/[facility] LABORATORY RBC 4.53 (L) 4.58 [facility] 5.[address] [facility] x10(6)/[facility] LABORATORY Hemoglobin 13.1 (L) 13.7 - [facility] 16.[facility] gm/dL [facility] Hematocrit 40.8 40.5 - [facility] 48.5 % [facility] MCV 90.1 82.9 - [facility] 93.1 [facility] LABORATORY MCH 28.9 27.5 - [facility] 32.1 pg [facility] MCHC 32.1 32.0 - [facility] 35.7 gm/dL [facility] Platelets 184 145 - 357 [facility] x10(3)/[facility] LABORATORY RDWSD 47.8 (H) 36.0 - [facility] D[facility] 45.0 [facility] LABORATORY RDWCV 14.5 (H) 11.4 - [facility] 13.8 % [facility] MPV 11.9 7.6 - 12.9 [facility] LABORATORY nRBC % Auto 0.0 % [facility] nRBC Abs Auto 0.000 0.000 - [facility]OV 0.[address] [facility] x10(3)/[facility] LABORATORY Specimen Anatomical Collection Method Collection Time Receive d Time (Source) Location / / Volume Laterality Blood specimen 11/29/2019 2:32 PM 020 2:55 (specimen) EDT PM EDT Resulting Agency Comment Spec In Lab Darrell Glasgow MD HEMATOLOGY ORDERABLES Performing Organization Address City/[facility]/ZIP Code Phon e Number [address] (ABNORMAL) CK (11/29/2019 2:32 PM EDT) athologist Signature CK, Total 3,282 (H) 0 - 200 [facility] unit/[facility] LABORATORY Specimen Anatomical Collection Method Collection Time Receive d Time (Source) Location / / Volume Laterality Blood specimen 11/29/2019 2:32 PM 020 2:32 (specimen) EDT PM EDT Resulting Agency Comment Spec In Lab Gretchen Yoon MD CHEMISTRY ORDERABLES Performing Organization Address City/[facility] [place] [address] (ABNORMAL) Troponin (11/29/2019 2:32 PM EDT) athologist Signature Troponin-T 20.33 (H) 0.00 - [facility] 0.00 ng/mL [facility] Comment: The 99th percentile for Troponin [...] additional sample may be indicated. Reference: Third Dupree Definition of Myocardial Infarction. Journal of the [place] College of Cardiology 2012;60:1581-98 Specimen Anatomical Collection Method Collection Time Receive d Time (Source) Location / / Volume Laterality Blood specimen 11/29/2019 2:32 PM 020 2:32 (specimen) EDT PM EDT Resulting Agency Comment Spec In Lab Gretchen Yoon MD CHEMISTRY ORDERABLES Performing Organization Address [facility] [place] [address] (ABNORMAL) APTT (11/29/2019 2:32 PM EDT) athologist Signature PTT 114 25 - 37 [facility] (Critical) [facility] LABORATORY Comment: Critical Result called by ?? [...] MD HEMATOLOGY ORDERABLES Performing Organization Address [facility] [place] [address] (ABNORMAL) Prothrombin Time (11/29/2019 2:32 PM EDT) P athologist Signature PT 13.5 (H) 9.4 - 12.5 [facility] LABORATORY INR 1.2 [facility] Comment: An INR <2.0 [...] Yoon MD HEMATOLOGY ORDERABLES Performing Organization Address City/[facility]/ZIP [place] [address] (ABNORMAL) Hepatic Function Panel (11/29/2019 2:32 PM EDT) athologist Signature Total Protein 6.3 6.1 - 8.0 [facility] gm/dL [facility] Albumin 3.6 3.2 - 5.2 [facility] gm/dL [facility] AST 257 (H) 0 - 39 [facility] DOV unit/L [facility] ALT 50 0 - 55 [facility] DOV unit/L [facility] Alk Phos 84 40 - 130 [facility] unit/L [facility] Total 0.3 0.2 - 1.[address] [facility] [facility] Bilirubin mg/dL [facility] Bili, Direct 0.1 0.0 - 0.3 [facility] DOV mg/dL [facility] Specimen Anatomical Collection Method Collection Time Receive d Time (Source) Location / / Volume Laterality Blood specimen 11/29/2019 2:32 PM 020 2:32 (specimen) EDT PM EDT Resulting Agency Comment Spec In Lab Gretchen Yoon MD CHEMISTRY ORDERABLES Performing Organization Address City/[facility]/ZIP [place] [address] (ABNORMAL) pro-Brain Natriuretic Peptide (11/29/2019 2:32 PM EDT) P athologist Signature ProBNP 272 (H) <=125 pg/mL [facility] Specimen Anatomical Collection Method Collection Time Receive d Time (Source) Location / / Volume Laterality Blood specimen 11/29/2019 2:32 PM 020 2:32 (specimen) EDT PM EDT Resulting Agency Comment Spec In Lab Gretchen Yoon MD CHEMISTRY ORDERABLES Performing Organization Address City/State/ZIP Code Phon e Number [address] Magnesium (11/29/2019 2:32 PM EDT) athologist Signature Magnesium 0.76 0.69 - 1.07 [facility] mmol/L [facility] Specimen Anatomical Collection Method Collection Time Receive d Time (Source) Location / / Volume Laterality Blood specimen 11/29/2019 2:32 PM 020 2:32 (specimen) EDT PM EDT Resulting Agency Comment Spec In Lab Gretchen Yoon MD CHEMISTRY ORDERABLES Performing Organization Address City/[facility]/ZIP Code Phon e Number [address] (ABNORMAL) Basic Metabolic Panel (non-fasting) (11/29/2019 2:32 PM EDT) athologist Signature Glucose Lvl 149 65 - 199 [facility] mg/dL [facility] Comment: Diabetes: >=200 mg/dL plus symp toms BUN 16 10 - 20 mg/dL [facility] Creatinine 0.94 0.80 - 1.50 mg/dL [facility] Sodium 135 135 - 145 [...] estions. Chloride 105 98 - 107 mmol/L [facility] CO2 15 (L) 22 - 31 mmol/L [facility] Anion Gap 15 5 - 15 mmol/L [facility] Calcium 8.0 (L) 8.5 - 10.5 mg/dL [facility] Estimated GFR 80 >=60 mL/min/1.73 m?? [facility] Comment: The eGFR was calculated using the CKD-EP I equation. As with all creatinine based estimates of kidney function, eGFR values calculated with the CKD-EPI equation are not accurate in patients wi th acute kidney failure, extremes of body mass or the acutely ill. http://[employer]/[facility]GATEnkf eGFR 93 >=60 mL/min/1.73 m?? [facility] Comment: The eGFR was calculated using the CKD-EP I equation. As with all creatinine based estimates of kidney function, eGFR values calculated with the CKD-EPI equation are not accurate in patients wi th acute kidney failure, extremes of body mass or the acutely ill. http://[employer]/[facility]ALGATEnk Specimen Anatomical Collection Method Collection Time Receive d Time (Source) Location / / Volume Laterality Blood specimen 11/29/2019 2:32 PM 020 2:32 (specimen) EDT PM EDT Resulting Agency Comment Spec In Lab Gretchen Yoon MD CHEMISTRY ORDERABLES Performing Organization Address City/State/[facility] [place] [address] EKG 12 Lead (11/29/2019 11:38 AM EDT) [facility] gist Method Time Signature Ventricular rate 60 BPM MUSE SYSTEM Atrial Rate 60 BPM MUSE SYSTEM P-R Interval 140 ms MUSE SYSTEM QRS Duration 86 ms MUSE SYSTEM Q-T Interval 474 ms MUSE SYSTEM QTC Calculated 474 ms MUSE SYSTEM (Bezet) Calculated P Luck 48 degrees MUSE SYSTEM Calculated R Luck 14 degrees MUSE SYSTEM Calculated T Luck 58 degrees MUSE SYSTEM INTERPRETATION Normal sinus [...] 11/29/2019 1:38 AM EDT PM EDT Gretchen N Young MD ECG ORDERABLES Performing Organization Address City/State/ZIP Code Phon e Number MUSE SYSTEM CARDIAC CATHETERIZATION (11/29/2019 11:15 AM EDT) Anatomical Region Laterality Modality Other Specimen (Source) Anatomical Location Collection Method / Collectio n Time Received Time / Laterality Volume Narrative 11/30/2019 1:09 PM EDT ?[facility] ? Cardiac Cathete rization/Intervention Report ? Patient Name: Angel Luis Salinas. ? Procedure Date: 11/29/2019 ? A #: [id number] ? Primary Physician: Gretchen Yoon ? Case #: [id number] ? File Name: [id number] ? Catheterization Order Number: [id number] ? [facility] ? Final Report [place], [place] ? Patient Name: ? Angel Luis Salinas ? ID#: ?[id number] ? : ?1945 ? Procedure Date: ? November 29, 2019 ? Case #: ? [id number] ? Room: ? 5 ? Case Physician: ? Gretchen Yoon , M.D. ?Start: ?09:11 ?Fellow: ? Aidan mckee, [...] was Emergent. 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 ?Recommended anti-platelet/anti- thrombotic regimen: ?Continue aspirin 81 mg daily fo r indefinitely. ?Continue clopidogrel 75 mg marco a y for 12 months then stop. ?These recommendations are made at the time of the intervention. Patient ?and provider preferences or a c hanging clinical situation may require ?modification of this regimen. C onsult [facility] Interventional Cardiology for ?questions. ? Conclusions: ?* [...] from the original. [facility] Cardiac Catheterization/Intervention Re port Patient Name: Angel Luis Salinas Procedure Date: 11/29/2019 A #: [id number] Primary Physician: Gretchen Yoon Case #: [id number] File Name: [id number] Catheterization Order Number: [id number] [facility] Final Report [place], [place] Patient Name: Angel Luis Salinas ID#: [id number] : 1945 Procedure Date: November 29, [...] was designated as ASA Class IV. The [facility] clinical frailty scale is 4: Vulnerable. Diagnostic Tests: Electrocardiography: EKG was assessed by ECG. EKG was Abnorm al. EKG showed ST Deviation >= 0.5 mm. Medications Prior to Procedure: Aspirin. Indications for Diagnostic Cath: The priority of the diagnostic procedur e was Emergent. 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 Recommended anti-platelet/anti-thrombot ic regimen: Continue aspirin 81 [...] Blood Gas Historical (11/29/2019 9:17 AM EDT) [facility] gist Method Time Signature POC pH 7.33 (L) 7.35 [facility] 7.45 [facility] POC PCO2 33 (L) 35 - 45 [facility] LABORATORY POC PO2 56 (L) 85 - 104 [facility] LABORATORY POC Base Excess -8.0 (L) -3.0 - 3.0 [facility] mmol/L [facility] POC HCO3 17.4 (L) 20.0 - [facility] 26.[address] [facility] Sodium 137 135 - 145 [facility] mmol/L [facility] POC Potassium 3.6 3.5 - 5.0 [facility] mmol/L [facility] POC Ionized Ca 1.15 1.15 - [facility] 1.[address] [facility] P[facility] Hematocrit 37.0 (L) 40.0 - [facility] 51.0 % [facility] POC Calc Hgb 12.6 (L) 13.7 - [facility] 17.5 gm/dL [facility] Comment: The calculation of hemoglobin f rom hematocrit assumes a normal MCHC. POC Bgas Loc CC LAB [facility] Specimen Anatomical Collection Method Collection Time Receive d Time (Source) Location / / Volume Laterality Blood specimen 11/29/2019 9:17 AM 020 7:35 (specimen) EDT AM EDT Gretchen Yoon MD CHEMISTRY ORDERABLES Performing Organization Address City/State/ZIP [place] [address] EKG 12 Lead (11/29/2019 9:01 AM EDT) Component Value Ref Range Test Analysis Performed Pathologis t Method Time At Signature Ventricular rate 80 BPM MUSE SYSTEM Atrial Rate 79 BPM MUSE SYSTEM QRS Duration 94 ms MUSE SYSTEM Q-T Interval 436 ms MUSE SYSTEM QTC Calculated 502 ms MUSE SYSTEM (Bezet) Calculated R Luck 54 degrees MUSE SYSTEM Calculated T Luck 80 degrees MUSE SYSTEM INTERPRETATION Normal sinus [...] to 33.3 mL/hr), Intravenous, CONTINUOUS, Starting on [place] 12/07/19 at 1315, Until Sun12/08/19 at 1203, [...] 150 mg, Intravenous, ONCE, 1 dose, On [place] 12/07/19 at 1315, Warning Vesicant/Irritant Medication , [...] 81 mg, Oral, DAILY, First dose on [facility] 11/29/19 at 1330, Until Discontinued, Routine cefPODOXime [...] Intravenous, ONCE PRN, 1 dose, Starting on [place] 11/30/19 at 1636, Until [place] 11/30/19 at 1636, Per Protocol, Warning Vesicant/Irritant [...] mL/hr 250 mL/hr, Intravenous, CONTINUOUS, Starting on [place] 12/07/19 at 0145, Until [place] 12/07/19 at 0239 levoFLOXacin (LEVAQUIN) 750 mg in New Bag 11/30/2019 11:03 PM EDT 750 mg 100 mL/hr dextrose 5% 150 mL 750 mg, Intravenous, at 100 mL/hr, EVERY 24 HOURS, First dose on [place] 11/30/19 at 2300, Until Discontinued, Routine, Indication [...] dose, Starting on Sun12/07/19 at 1226, Until 12/07/19 at 1241, Amaya [...] 12.5 mg, Oral, DAILY, First dose on 6/8/20 at 0930, Until Discontinued, DO NOT CRUSH [...] Oral, 2 TIMES DAILY, First dose on Mon 8/20 at 1230, Until Discontinued, Routine apixaban (Eliquis) [...] Anderson RN) 0824 (Given - Provider: Amaya Anderosn RN) 09 (Given - Provider: Amaya Anderson RN) 75 mg, Oral, DAILY, First dose on Sun at 0900, Until Discontinued, Recovery (Recovery-Hospital Unit), Routine colchicine (Colcrys) tablet 0.6 mg (CANCELED) 0954 ([place] - Provider: Amaya Anderson RN) 08 (Given - Provider: Amaya Andreson RN) 0.6 mg, Oral, DAILY, First dose [...] Routine furosemide (Lasix) tablet 20 mg (CANCELED) 191 (Given - Provider: Amaya Anderson RN) 0824 (Given - Provider: Amaya Anderson RN) 0900 (Not Giv en - Provider: Aamya Anderson RN - Reason: Per MD Order) [...] ONCE, 1 dose, 12/06/19 at 0515, Ad it security consulting director over 120 Minutes magnesium sulfate 2 [...] mL 0900 (Not Giv en - Provider: Amyaa Anderson RN - Reason: Order parameters not [...]
Routine documented in this encounter Care Teams Clinical Engineering Director Relationship Specialty Start Date End Date France Lam MD PCP - General 05/02/13 02/04/20 [address] [place] [address] (work) documented as of this encounter
--- OUTSIDE RECORDS SUMMARY | 2022-06-06 11:16 | XMS_ITS | Encounter Summary ---
:1945 Author Organization [facility] [place] [address] Care Team Providers Name Role Phone France Lam MD Primary Care Provider Encounter Details Date Type Department Care Team Description 11/30/2019 Orders Only Cardiology [facility] [place] [address] Social History Tobacco Use Types Packs/Day Years Used Date Smoking Tobacco: Every Day Cigarettes 0.5 Cigars Sex Assigned at Date Recorded Not on file documented as of this encounter Plan of Treatment Upcoming Encounters Date Type Specialty Care Team Description 06/30/2022 Office Visit Endocrinology EchtAlan MD [facility] ENDOCRINOLOGY [place], [place] [address] (Wo rk) documented as of [...] fajardo ? (Age): 1945(74y) Med Rec#: ? [id number] ?Sex: ?M ? Site Loc: ? Ht / Wt: ??(cm)/ (kg) ? Pt. Loc: ? Study Date: ?? 11/29/2019 ?Pt. Type: Tape: ? Referring: Faustino Garduno Reading: Dawit Mejia ([id number]) Field Producer: [place] Secretary Of Police: Cedric Eric ([id number]) Interpreting Fellow: Cedric Eric ([phone]) Diagnosis: SUMMARY: 1. Limited bedside echocardiogram perfor med by environmental compliance officer armorer technician for hypotension following inferior STEMI . [...] ? Mid-Inferior ?Akinetic ? Mid-Inferoseptal ?Hypokinetic ? [place]-Septal ? Normal ? [place]-Anterior ? Normal ? [place]-Lateral ?Normal ? [place]-Inferior ? Hypokinetic ? [place]-Tip ?Normal ? This report has been electronically sign ed by: _ Dawit Sebastian. MD Roberto ? 11/30/2019 12: 53:59 Images reviewed and interpretation veraustin casey [facility] Cardiac Ultrasound Laboratory Procedure Note Dawit Mejia MD - 11/30/2019Formatti ng of this note might be different from the original. Procedure: Transthoracic Echocardiogram Patient: domenica ACOSTA(Age): 6(74y) Med Rec#: [id number] Sex: M Site Loc: Ht / Wt: (cm)/ (kg) Pt. Loc: Study Date: 11/29/2019 Pt. Type: Tape: Referring: Faustino Garduno Reading: Dawit Mejia ([id number]) Field Producer: [employer] Secretary Of Police: Cedric Eric ([id number]) Interpreting Fellow: Cedric Eric ([id number]) Diagnosis: SUMMARY: 1. Limited bedside echocardiogram perfor med by environmental compliance officer armorer technician for hypotension following inferior STEMI . [...] Normal Mid-Posterolateral Akinetic Mid-Inferior Akinetic Mid-Inferoseptal Hypokinetic [place]-Septal Normal [place]-Anterior Normal [place]-Lateral Normal [place]-Inferior Hypokinetic [place]-Tip Normal This report has been electronically sign ed by: _ Dawit Mejia MD 11/30/2019 12:53:59 Images reviewed and interpretation [facility] Cardiac Ultrasound Laboratory Unknown ECHO ORDERABLES documented in this encounter Visit Diagnoses Not on filedocumented in this encounter Care Teams Underwriting Technician Relationship Specialty Start Date End Date France Lam MD PCP - General 05/02/13 02/04/20 [address] [place] [address] documented as of this encounter
--- OUTSIDE RECORDS SUMMARY | 2022-06-06 11:17 | XMS_ITS | Encounter Summary ---
:1945 Author Organization [facility] [place] [address] Care Team Providers Name Role Phone France Lam MD Primary Care Provider Reason for Visit Auth/Cert Specialty Diagnoses / Procedures Referred By Contact Refer red To Contact Diagnoses STEMI (ST elevation myocardial infarction) STEMI Procedures CARDIAC CATHETERIZATION Referral ID Status Reason Start Date Expiration Date Visits Requ ested Visits Authorized [id number] 1 1 Encounter Details Date Type Department Care Team Description 11/29/2019 Surgery Merchant Patroller Gretchen Corral, CARDIAC CATHETERIZATION [facility] [place] [address] [place] [id number] [phone] (Wo rk) Social History Tobacco Use Types [...] months on: antiplatelet therapy at discretion of call center assistant - Repeat TTE in 3 months to reassess LV function - Repeat BMP in 1-2 weeks given recent start lisinopril - Referred to lipid clinic for consideration of PCSK-9 inhibitor given STEMI with intolerance of statins - Started on amiodarone this admission for recurrent rapid atrial flutter with rates ~170, recommendcontinued assessment of necessity of rhythm control strategy with call center assistant - Amiodarone monitoring recommendations as below [...] contact your inpatient physician through the [facility] Cost Coordinator . Issues after hours and on [...] Compazine. He was transferred directly to [facility] via [facility] for further management. Patient had an emergent PCI with 3 MACARIO stents placed to his RCA, with mild disease of LCX (report pending) at [facility]. He was found to be persistently hypotensive requiring Levo up to 10mcg/min. He was transferred to [facility] after the cath procedure. Bedside RHC showed CI 2.12, PAWP 11, PAP 38/15 indicating hypovolemic state. He received 1L bolus of NS with improvement of his blood pressure to 124/61. History of PAD, HLD - had side reactions to statins - so taking niacin and red rye grain. Chronic active smoker with more than 65 pack years. Family history of [place] in father and two uncles. He's takingbaby [...] as described above. On arrival at [facility] he was taken for [...] the medication cost was prohibitive at a [place] pharmacy. He was strongly encouraged to quit [...] priority for the procedure was Emergent. [facility] [...] Electronically signed by: Angel Luis Barboza MD, [facility] ([phone]), at 11/30/2019 12:[address] Head wo [...] signed by: [facility] ([phone]), at 11/30/2019 5:[address] Angiogram Lummi of Bray (Exam End: 11/30/2019 4:36 PM) Impression Head CT: Stable hemorrhage in the region of the left optic tract. CTA: Negative exam. No abnormal vasculature in the area of hemorrhage. Thank you for letting us participate in the care of this patient. For questions regarding this report, please contact the number below. Electronically signed by: Angel Luis Barboza MD, [facility] ([phone]), at 11/30/2019 5:04 PM MRI Brain wo [...] Electronically signed by: Angel Luis Barboza MD, [facility] ([phone]), at 12/01/2019 8:02 PM XR Chest One [...] ??? Penicillins Pt doesn't remember reaction ??? Oennjoj-Zog-Hzj Reductase Inhibitors Stiff neck, upset stomach, back [...] at another hospital and then at [facility] you had a stent [...] FOR ONE MONTH AND THEN STOP. Your call center assistant may tell you to start this medication again after one year. Clopidogrel (Plavix) 75 mg daily - This medication will help prevent clots from forming in your blood, which will help protect the stent that was placed in your heart vessel. TAKE THIS FOR ONE YEAR ANDTHEN DISCUSS WITH YOUR GEOTECHNICAL FIELD TECHNICIAN WHETHER TO STOP. Amiodarone 400mg twice [...] follow up: Your primary care provider and call center assistant will manage your blood thinner (apixaban). You do not need lab monitoring of this medication. Diet: Please consume a healthy diet low in cholesterol Follow up Appointments: 12/10/2019 at 3:10PM with PCP Angel Luis Lott Future Appointments Date Time Provider Department Center 12/23/2019 1:30 PM Alfreda Salas APRN [facility] [id number] 12/26/2019 9:40 AM Merlin Sanchez MD [facility] CARD 4A [facility] 12/30/2019 3:40 PM Gretchen Yoon MD [address] Future Appointments and Orders Future Appointments and Orders Future Appointments Provider Department Dept Phone 12/23/2019 1:30 PM Alfreda Salas APRN Neurosurgery at [facility] Arrive at: Home [phone] Please do not come in for this visit. Your provider will call you at the number you provided. 12/26/2019 9:40 AM Merlin Sanchez MD Cardiology at [facility] Arrive at: Home [phone] Please do not come in for this visit. Your provider will call you at the number you provided. 12/30/2019 3:40 PM Gretchen Yoon MD Cardiology at [facility] Arrive at: Home [phone] Please do not come in for this visit. Your provider will call you at the number you provided. Future Orders Complete By Expires Referral to Cardiac Rehab [[id number] Custom] As directed Process Instructions: If no progress note charted, please enter Clinical details in comments. Scheduling Instructions: Questions: My question or request is: STEMI. Cardiac rehab at [facility] Referral to [facility] [REF43 Custom] As directed Process Instructions: If no progress note charted, please enter Clinical details in comments. Scheduling Instructions: Questions: My question or request is: patient with inferior stemi with history of statin allergy (rash) - please evaluate for psck9 inhibitor. Referral to Home Health - at DISCHARGE [[id number] CPT(R)] As directed Process Instructions: Scheduling Instructions: Comments: DOCUMENTATION FOR VNA SERVICES PATIENT'S LOCATION: [address] [address] (home) Electric Golf Cart Repairer's Name: Self In discussion with the attending physician, it is certified that this patient is under his/her care and that MD, or an AIR CONTROL/ANTI AIR WARFARE OFFICER, ESOL INSTRUCTOR, or PA who is working directly with him/her, had a euft-ul-wcgt encounter that meets the physician hzex-lc-pvue encounter requirements with this patient on 12/07/2019. [...] managing ADLs. HOME HEALTH CARE AGENCY: [facility], PHONE: [phone] FAX: [phone] Start of care: 24-48 hours after hospital [...] Lam MD [address] / [place] [address] All A agencies which cover the area of patient's residence have been reviewed, either verbally or in writing, and patient/family have chosen the home health care agency noted. Questions: Agency name and contact information: [facility] Patient location post discharge: Home What services are requested: Registered Nurse Physical Therapy Occupational Therapy Start date: Responsible MD post discharge contact info: PCP Your PCP: France Lam MD [phone] For questions regarding this document or issues relating to this hospitalization on the Cardiology Service, please contact your inpatient physician through the [facility] Cost Coordinator . Issues after hours and on weekends will be handled by the Telemetry Monitor on-call. Patient Instructions: Neurology Your Diagnosis: Left [...] follow-up appointment in the neurology clinic at [facility]. See below for the appointment [...] PM Alfreda Salas APRN Neurosurgery at [facility] Arrive at: Home [phone] Please do not come in for this visit. Your provider will call you at the number you provided. 12/26/2019 9:40 AM Merlin Sanchez MD Cardiology at [facility] Arrive at: Home [phone] Please do not come in for this visit. Your provider will call you at the number you provided. 12/30/2019 3:40 PM Gretchen Yoon MD Cardiology at [facility] Arrive at: Home [phone] Please do not come in for this visit. Your provider will call you at the number you provided. Future Orders Complete By Expires Referral to Cardiac Rehab [[id number] Custom] As directed Process Instructions: If no progress note charted, please enter Clinical details in comments. Scheduling Instructions: Questions: My question or request is: STEMI. Cardiac rehab at [facility] Referral to [facility] [REF43 Custom] As directed Process Instructions: If no progress note charted, please enter Clinical details in comments. Scheduling Instructions: Questions: My question or request is: patient with inferior stemi with history of statin allergy (rash) - please evaluate for psck9 inhibitor. Referral to Home Health - at DISCHARGE [MKD2232 CPT(R)] As directed Process Instructions: Scheduling Instructions: Comments: DOCUMENTATION FOR VNA SERVICES PATIENT'S LOCATION: [address] [address] (home) Electric Golf Cart Repairer's Name: Self In discussion with the attending physician, it is certified that this patient is under his/her care and that MD, or an AIR CONTROL/ANTI AIR WARFARE OFFICER, ESOL INSTRUCTOR, or PA who is working directly with him/her, had a imjf-yz-bbog encounter that meets the physician mboq-xt-rpur encounter requirements with this patient on 12/07/2019. [...] managing ADLs. HOME HEALTH CARE AGENCY: [facility], PHONE: [phone] FAX: [phone] Start of care: 24-48 hours after hospital [...] MD [address] / [place] [address] All A agencies which cover the area of patient's residence have been reviewed, either verbally or in writing, and patient/family have chosen the home health care agency noted. Questions: Agency name and contact information: [facility] Patient location post discharge: Home What [...] Stevens MD PGY-3, Internal Medicine Cardiology S2, #7681 Associated attestation - Paris Dodd MD - 12/09/2019 4:44 PM EDT Cardiology Attending Discharge Addendum I was the assigned attending call center assistant for this clinical encounter. For the purposes of billing, I was directly involved in the clinical decision making and the plan of care is reasonable. Please see the full discharge note below for full details. 74 year old M with a PMH of PAD, HLD, Active Tobacco Use & HTN who was admitted for inferior STEMI [s/p MAACRIO to RCA x3, residual LCx disease - non-culprit artery; s/p lytics] with clinical course complicated by RV failure manifesting as cardiogenic shock, for which ionotropic support to be initiated today; additional complications include novel onset, paroxysmal atrial fibrillation [[id number]: 5] & L-sided diplopia with potential hemineglect [...] My contact information: Paris Matt MD MPH [address] [address] (office); Pager #[phone] Email: [email or web address] documented in this encounter Discharge Instructions Patient InstructionsFiRiki de jesus MD - 12/02/2019 9:56 AM EDT Images from the original note were not included. Why you were hospitalized: You had a heart attack. You received clot-busting medications at another hospital and then at [facility] you had a stent [...] FOR ONE MONTH AND THEN STOP. Your call center assistant may tell you to start this medication again after one year. Clopidogrel (Plavix) 75 mg daily - This medication will help prevent clots from forming in your blood, which will help protect the stent that was placed in your heart vessel. TAKE THIS FOR ONE YEAR ANDTHEN DISCUSS WITH YOUR GEOTECHNICAL FIELD TECHNICIAN WHETHER TO STOP. Amiodarone 400mg twice [...] follow up: Your primary care provider and call center assistant will manage your blood thinner (apixaban). You do not need lab monitoring of this medication. Diet: Please consume a healthy diet low in cholesterol Follow up Appointments: 12/10/2019 at 3:10PM with PCP Angel Luis Lott Future Appointments Date Time Provider Department Center 12/23/2019 1:30 PM Alfreda Salas APRN [facility] [id number] [facility] 12/26/2019 9:40 AM Merlin Sanchez MD [facility] CARD 4A [facility] 12/30/2019 3:40 PM Gretchen Yoon MD [facility] CARD 4A [facility] Future Appointments and Orders Future Appointments and Orders Future Appointments Provider Department Dept Phone 12/23/2019 1:30 PM Alfreda Salas APRN Neurosurgery at [facility] Arrive at: Home [phone] Please do not come in for this visit. Your provider will call you at the number you provided. 12/26/2019 9:40 AM Merlin Sanchez MD Cardiology at [facility] Arrive at: Home [phone] Please do not come in for this visit. Your provider will call you at the number you provided. 12/30/2019 3:40 PM Gretchen Yoon MD Cardiology at [facility] Arrive at: Home [phone] Please do not come in for this visit. Your provider will call you at the number you provided. Future Orders Complete By Expires Referral to Cardiac Rehab [[id number] Custom] As directed Process Instructions: If no progress note charted, please enter Clinical details in comments. Scheduling Instructions: Questions: My question or request is: STEMI. Cardiac rehab at [facility] Referral to [facility] [REF43 Custom] As directed Process Instructions: If no progress note charted, please enter Clinical details in comments. Scheduling Instructions: Questions: My question or request is: patient with inferior stemi with history of statin allergy (rash) - please evaluate for psck9 inhibitor. Referral to Home Health - at DISCHARGE [GFM9009 CPT(R)] As directed Process Instructions: Scheduling Instructions: Comments: DOCUMENTATION FOR VNA SERVICES PATIENT'S LOCATION: [address] [address] (home) Electric Golf Cart Repairer's Name: Self In discussion with the attending physician, it is certified that this patient is under his/her care and that MD, or an AIR CONTROL/ANTI AIR WARFARE OFFICER, ESOL INSTRUCTOR, or PA who is working directly with him/her, had a cagj-pm-vprs encounter that meets the physician medp-ln-erhk encounter requirements with this patient on 12/07/2019. [...] managing ADLs. HOME HEALTH CARE AGENCY: [facility], PHONE: [phone] FAX: [phone] Start of care: 24-48 hours after hospital [...] MD [address] / [place] [address] All A agencies which cover the area of patient's residence have been reviewed, either verbally or in writing, and patient/family have chosen the home health care agency noted. Questions: Agency name and contact information: [facility] Patient location post discharge: Home What services are requested: Registered Nurse Physical Therapy Occupational Therapy Start date: Responsible MD post discharge contact info: PCP Your PCP: France Lam MD [phone] For questions regarding this document or issues relating to this hospitalization on the Cardiology Service, please contact your inpatient physician through the [facility] Cost Coordinator . Issues after hours and on weekends will be handled by the Telemetry Monitor on-call. Patient Instructions: Neurology Your Diagnosis: Left [...] follow-up appointment in the neurology clinic at [facility]. See below for the appointment [...] Rodriguez Pager: [phone] Paris Dodd MD - 12/08/2019 8:57 AM [...] complications include novel onset, paroxysmal atrial fibrillation [[id number]: 5] & L-sided diplopia with potential hemineglect [...] consulted in the interim. Vikash Rodriguez Pager: [phone] Paris Dodd MD - 12/07/2019 9:55 AM [...] complications include novel onset, paroxysmal atrial fibrillation [[id number]: 5] & L-sided diplopia with potential hemineglect [...] complications include novel onset, paroxysmal atrial fibrillation [RLB8XX6WUDO: 5] & L-sided diplopia with potential hemineglect [...] complications include novel onset, paroxysmal atrial fibrillation [LXX9ZC3PXMA: 5] & L-sided diplopia with potential hemineglect [...] today; additional complications include paroxysmal atrial fibrillation [HHK9QY1TFMZ: 4] c/b possible cardioembolic stroke, ICH from [...] length from neck/greatest diameter to back wall: TAMAZIGHT 91, CAU 13: 19 mm CORTES 1, [...] a non-culprit artery. S/P DESx3 in the ynnzidbw-et-kjmnag RCA. Aspiration thrombectomy performed, and integrellin bolus [...] complications include novel onset, paroxysmal atrial fibrillation [OPA9UT8AVKG: 5] & L-sided diplopia with potential hemineglect [...] R occipital cardioembolic stroke #Paroxysmal Afib with XO7GMLID2B score of 5 #New segmental bilateral PEs [...] Glasgow MD PGY1, Internal Medicine Cardiology S2, #9 Associated attestation - Paris Dodd MD - 12/05/2019 2:59 PM EDT I was the assigned attending call center assistant for this clinical encounter. For the [...] 12/04/2019 10:36 AM EDT Office of Care Management(OCM)/Pen Or Pencil Assembly Machine Operator(CM)/Discharge Planning Service: Cardiology S2 team CM Bernie Alexander,RN,BSN,MA,ACM pgr [phone] Reviewed record and in Cardiology Rounds with MD team,CMs, lumber piler operator, COLLATOR OPERATOR. Pt is anticipated ready for d/c [...] to his PCP and to any [facility] appt for each to [...] complications include novel onset, paroxysmal atrial fibrillation [RXY8UR8JGRT: 4] & L-sided diplopia with potential hemineglect [...] a non-culprit artery. S/P DESx3 in the vpfngevs-qr-pwvmdb RCA. Aspiration thrombectomy performed, and integrellin bolus [...] complications include novel onset, paroxysmal atrial fibrillation [MSC5KI0GPFX: 5] & L-sided diplopia with potential hemineglect [...] R occipital cardioembolic stroke #Paroxysmal Afib with US4CJNEC7T score of 5 - No anticoagulation for [...] Glasgow MD PGY1, Internal Medicine Cardiology S2, #1338 I have seen the patient and reviewed [...] in my clinic. Gretchen Yoon MD Pager [phone] Derian Pascual RN - 12/03/2019 9:29 AM [...] Discharge: None Electronically signed: Derian Pascual RN, Pen Or Pencil Assembly Machine Operator Pgr: [phone] 12/03/2019 9:29 AM [...] complications include novel onset, paroxysmal atrial fibrillation [NVF8FK5KTNH: 4] & L-sided diplopia with potential hemineglect [...] a non-culprit artery. S/P DESx3 in the pmddqmse-tq-ukmqxw RCA. Aspiration thrombectomy performed, and integrellin bolus [...] complications include novel onset, paroxysmal atrial fibrillation [HQD8MO4CBOS: 5] & L-sided diplopia with potential hemineglect [...] would like to see Dr. Mejia in [facility] and follow up with his PCP. Patient voiced strong will to quit smoking now, understood that we have resources available for help. Plan [P]: --Neurologic-- # Concern for Left-Sided Diplopia, r/o Hemineglect # Concern for CVA, last-known well 11/29/19 - MRI showed possible cardioembolic stroke #Afib with KR9HOPNW0I score of 5 - Stroke Team Consulted; [...] Anticoagulation/Arrhythmia # Novel Onset, Paroxsymal Atrial Fibrillation [[id number]: 5] - Hold off anticoagulation for at [...] straight cath prn # Nutrition - [facility] Diet, 2g Na. -- [...] Glasgow MD PGY1, Internal Medicine Cardiology S2, #6676 I have seen the patient and reviewed the resident's above history and I agree with the details as written. The assessment and plan were formulated in discussion with me and I agree with them as documented. Gretchen Yoon MD Pager [phone] Raul Hein RN - 12/03/2019 5:55 AM [...] mcL Appearance UA Clear Clear Spec [place] UA 1.026 1.006 - 1.030 Color UA [...] PGY3 Neurology Resident 12/01/2019 Vascular Neurology Pager [phone] Neurology Attending Attestation I evaluated the patient [...] Deepthi Roman MD Vascular Neurology Standard [facility] Swallow Screen: This screen [...] diet as medical provider deems appropriate. Consider INVESTMENT DIRECTOR consult for full evaluation and diet [...] complications include novel onset, paroxysmal atrial fibrillation [ATC1PZ3GJQO: 4] & L-sided diplopia with potential hemineglect [...] a non-culprit artery. S/P DESx3 in the vibqljfl-jh-haexgl RCA. Aspiration thrombectomy performed, and integrellin bolus [...] complications include novel onset, paroxysmal atrial fibrillation [FQS4AG3XMAZ: 5] & L-sided diplopia with potential hemineglect [...] Anticoagulation/Arrhythmia # Novel Onset, Paroxsymal Atrial Fibrillation [WZE0BS9QXLJ: 5] - Hold off anticoagulation - pending [...] d/t low BP. # Nutrition - [facility] Diet -- Hematology/Oncology-- # [...] Glasgow MD PGY1, Internal Medicine Cardiology S2, #7929 I have seen the patient and reviewed [...] the ICU team. Gretchen Yoon MD Pager [phone] Natalia Claros APRN - 12/02/2019 8:38 AM [...] - We are signing off. Please page [phone] with any questions or concerns. For questions please call [facility] pager [phone] Natalia Claros APRN 12/02/2019 8:38 AM Clinical Documentation Improvement: Active Hospital Problems Diagnosis ??? Acute ST elevation myocardial infarction (STEMI) of inferior wall ??? Intracranial hemorrhage ??? Hyperlipidemia ??? Tobacco abuse ??? Claudication from peripheral vascular disease, left Resolved Hospital Problems No resolved problems to display. Tello Hsu, BASE PLY HAND - 12/02/2019 2:06 AM EDT 12/01/192009 Oxygen [...] Scan in afternoon. Upon arrival back in [facility] placed on low flow NC at [...] complications include novel onset, paroxysmal atrial fibrillation [QNO8KS7GMPT: 4] & L-sided diplopia with potential hemineglect for which CVA evaluationto be pursued. Active Problems/Subjective: - 11/28: admitted for inferior STEMI, RV failure requiring pressor - got lytics, aspirin and plavix load, heparin gtt, and eptifibatide. 3 MACARIO stents to RCA. [place] cath - low wedge & CVP so [...] a non-culprit artery. S/P DESx3 in the tcfmxhhv-pj-dvvbdr RCA. Aspiration thrombectomy performed, and integrellin bolus [...] complications include novel onset, paroxysmal atrial fibrillation [DUG8RS2XNZK: 4] & L-sided diplopia with potential hemineglect [...] Anticoagulation/Arrhythmia # Novel Onset, Paroxsymal Atrial Fibrillation [AGI5GN7MVGW: 4] - Obtain: TTE - Pending CVA [...] d/t low BP. # Nutrition - [facility] Diet -- Hematology/Oncology-- # [...] MD, PGY1 PGY3, Internal Medicine Cardiology S2, #8303 I have seen the patient and reviewed [...] down the line. Gretchen Yoon MD Pager [phone] ?? Gretchen Yoon MD Pager [phone] Natalia Claros APRN - 12/01/2019 1:33 AM [...] per primary team For questions please call [facility] pager [phone] Natalia Claros APRN 12/01/2019 7:42 AM Clinical Documentation Improvement: Active Hospital Problems Diagnosis ??? Acute ST elevation myocardial infarction (STEMI) of inferior wall ??? Intracranial hemorrhage ??? Hyperlipidemia ??? Tobacco abuse ??? Claudication from peripheral vascular disease, left Resolved Hospital Problems No resolved problems to display. Tello Hsu, BASE PLY HAND - 11/30/2019 8:44 PM EDT Respiratory Therapy [...] EDT Narrative:Visited in response to request for Pellet Machine Operator services. Pt was awake, alert, oriented and in bed. Assessment:Patient coping positively with stresses of illness/hospitalization at this time. Pt says that he is hoping to get better and pt is living with and has children and grandchildren. Pt haspurpose of life and has reason to get getter and to be with family. Outcome: Provided emotional and spiritual support and encouraging presence. Pellet Machine Operator services accepted.Conversation to build trusting relationship.Provided [...] complications include novel onset, paroxysmal atrial fibrillation [QUJ5WN0FZYP: 4] & L-sided diplopia with potential hemineglect for which CVA evaluationto be pursued. Active Problems/Subjective: - Overnight, CVP < 12 for which a total of 1 L IVF provided - Today AM, patient complains of subjectively reported, left-sided hemineglect with floaters and diplopia [see: exam]. - Otherwise, c/o neck pain 2/2 R IJ [place] & L radial A line. Otherwise, denies [...] a non-culprit artery. S/P DESx3 in the sspcfrvj-xv-zlhrtz RCA. Aspiration thrombectomy performed, and integrellin bolus [...] complications include novel onset, paroxysmal atrial fibrillation [[id number]: 4] & L-sided diplopia with potential hemineglect [...] Anticoagulation/Arrhythmia # Novel Onset, Paroxsymal Atrial Fibrillation [[id number]: 4] - Obtain: TTE to confirm rhythm [...] d/t low BP. # Nutrition - [facility] Diet -- Hematology/Oncology-- # [...] MD, PGY3 PGY3, Internal Medicine Cardiology S2, #[id number] I have seen the patient and reviewed [...] down the line. Gretchen Yoon MD Pager [phone] Paola Capps RN - 11/30/2019 6:57 AM EDT PT still requiring 4 of levo, several attempts to titrate down (maps in 70;s) But maps would drop toless than 65. Pt very restless in bed Raising and lowering head denies pain . Integrillin stopped [id number] when bottle complete , urine tea colored [...] PCP: France Lam MD PCP phone #: [phone] Conditioning Machine Operator: None ID/Chief Complaint: Chest pain [...] Compazine. He was transferred directly to [facility] via [facility] for further management. Patient had an emergent PCI with 3 MACARIO stents placed to his RCA, with mild disease of LCX (report pending) at [facility]. He was found to be persistently hypotensive requiring Levo up to 10mcg/min. He was transferred to [facility] after the cath procedure. Bedside RHC showed CI 2.12, PAWP 11, PAP 38/15 indicating hypovolemic state. He received 1L bolus of NS with improvement of his blood pressure to 124/61. History of PAD, HLD - had side reactions to statins - so taking niacin and red rye grain. Chronic active smoker with more than 65 pack years. Family history of [place] in father and two uncles. He's takingbaby [...] ??? Penicillins Pt doesn't remember reaction ??? Fvqoolm-Elc-Jsa Reductase Inhibitors Stiff neck, upset stomach, back pain Family History: Mother: Father: [place] 2 Uncles with MIs Social History: Tobacco: Current active smoker 1 ppd. 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 Vitals: Last value Range last [...] in the last 7068 hours. Invalid input(s): [id number] Heme: No results for input(s): LDH, HAPTOGLOBIN, [...] prior to transfer and PCI at [facility]. Massive inferior STEMI with troponin level 20, currently in CVCC due to pressor requirement. BedsideRHC demonstrated evidence of elevated right sided heart failure, but his wedge was wnl. He received 1L bolus with improvement of his blood pressure and reduction of his pressor requirement. PLAN: Admit to Cardiology, S2 Team Pager # [phone] #Inferior STEMI, LEYLA 149 - Resolving EKG [...] STEMI s/p lytic therapy. Transferred to [facility] and underwent successful PCI of the RCA with MACARIO x3. Gretchen Yoon MD Pager [phone] documented in this encounter Procedure Notes Juventino [...] to the planned procedure. Hand Hygiene: The security installer did perform hand hygiene prior to [...] a suspected line-associated infection. Location of Procedure: [facility] Risks and Benefits: The risks and [...] to the planned procedure. Hand Hygiene: The security installer did perform hand hygiene prior to [...] side:right An Introducer (PSI Kit) was used. [place]. Insertion Side: right. Insertion Site: internal jugular. Catheter Details: Number of Lumens: 1 Catheter Type: heparin-coated The line was placed over a guidewire. Confirmation of Venous Placement: Venous placement was confirmed by transducing the pressure. Introducer Insertion Attempts: 1 Comments: Floating the [place] Catheter Attempts: 1 Comments: Sterile Dressing: Biopatch [...] better pt back in SR. Please page [phone] for any more cares or concerns Plan [...] complications include novel onset, paroxysmal atrial fibrillation [[id number]: 5]& L-sided diplopia with potential hemineglect for [...] Total Evaluation Minutes, Occupational Therapy: 10 Pager: [phone] FRANCINE Nuñez Occupational Therapy Rehabilitation Department Plan [...] complications include novel onset, paroxysmal atrial fibrillation [[id number]: 5] & L-sided diplopia with potential hemineglect [...] hand rails). Baseline Mobility: Independent. Drives. 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 Time IN / OUT: 5872-7548 Total Evaluation Minutes, Physical Therapy: 15(gtx1) Barbara Baldwin, PT Pager: [phone] Physical Therapy Inpatient Rehabilitation Department Plan of [...] Center. Consult refused. Romain Tran, MSN, RN-, [facility] Tobacco Airset Caster [facility] Pager #[phone] Plan of Care - Romain Oglesby OT [...] complications include novel onset, paroxysmal atrial fibrillation [[id number]: 5] & L-sided diplopia with potential hemineglect [...] and measurable assessment of functional outcome. Pager: [phone] ROMAIN OGLESBY OT 12/03/2019 Occupational Therapy Rehabilitation [...] outpatient cardiac rehabilitation program at [facility] was discussed. Patient agrees to a referral to this program. His has been a cardiac rehab patient at [facility] and he is familiar with the program. [...] complications include novel onset, paroxysmal atrial fibrillation [[id number]: 5] & L-sided diplopia with potential hemineglect [...] hand rails). Baseline Mobility: Independent. Drives. 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 Time IN / OUT: 4700-8043 Total Evaluation Minutes, Physical Therapy: 25(eval, gtx1) Barbara Baldwin, PT Pager: [phone] Physical Therapy Inpatient Rehabilitation Department Consult Note [...] Please contact JOHANNA NOBLES RN on pager [phone] or the wound care team at [phone] or pager [phone] skin and wound care concerns or questions. [...] Salinas would be surrogate decision maker per [place] surrogate decision making law. Any patient receiving carspousee at [facility] must abide by [place] law. The hierarchy for surrogate decisionmaking is: [...] Insurance: N/A Prescription Coverage: Yes Preferred Pharmacy: [place], [place] Other: No Primary Care Provider: France Lam MD [phone] Patient/Caregiver Goals of Treatment: Return home Potential Needs for Transition of Care: Rehab/SNF: Based on discussions with the multi-disciplinary healthcare team, the patient would benefit from SNF level of care at discharge. ?? I have met with the patient to discuss discharge planning needs. I have provided the [facility], Officeof Care Management letter from the Kettle Loader pertaining to rehab referrals. I have also [...] patient have [facility] to: ?? [facility] [address] [place] [address] ?? [address]. [address] , [place] [address] Note routed to Retail Sales Teammate who will communicate referrals to facilities and provide any required information. Home Health: If therapies recommend home w/ VNA, the patient has been provided a list of Home Health Agencies/DME vendors which serve their preferred geographic area. A letter describing our affiliations was reviewed with them and they were educated about their right to choose where referrals are placed. Patient requests referral to [facility]. PHONE: [phone] FAX: [phone] Referral routed to the Retail Sales Teammate for matching with agency/vendor and to provide [...] Insured w/ Medicare. Gets medications filled at [facility] in [place], [place]. Son to transport at discharge Plan: Discharge dispo depending on patient's physical recovery; SNF vs home w/ VNA. A member of the Care Management team will continue to monitor progress, follow for continuity of care and assist with transition of care planning. Derian Pascual RN Pager: [phone] Plan of Care - Estefani Encarnacion RN [...] ??? Penicillins Pt doesn't remember reaction ??? Gbpxwnn-Sty-Xnl Reductase Inhibitors Stiff neck, upset stomach, back [...] noncontrast head CT and CT of the [place] of [place] at 1600 hrs. We will [...] concerning for stroke. Patient presented to [facility] in transfer for a [...] ??? Penicillins Pt doesn't remember reaction ??? Jnbnahl-Xmf-Iho Reductase Inhibitors Stiff neck, upset stomach, back [...] file Gets together: Not on file Attends taoist service: Not on file Active member of [...] L Elbow flexion 5/5 R, 5/5 L Pharmacist Per Diem LE: 5/5 R, 5/5 L Hip flexion [...] PGY3 Neurology Resident 11/30/2019 Vascular Neurology Pager [phone] Standard [facility] Swallow Screen: This screen [...] diet as medical provider deems appropriate. Consider INVESTMENT DIRECTOR consult for full evaluation and diet [...] s/p thrombolysis and Cath-Stent to [facility] who developed R sided visual symptoms. CT [...] hours. Evan Mejia MD Department of Neurology [facility] Brief Op Note - Gretchen Yoon MD - 11/29/2019 8:38 PM EDT Brief Operative Note Patient Name: Angel Luis Salinas : [id number] MR#: [id number] Case Date: 11/29/2019 Surgeon: Surgeon(s) and Role: * Gretchen Yoon MD - Primary * Aidan Ward MD - Fellow Preoperative diagnosis: Inferior STEMI Postoperative diagnosis: Inferior STEMI Procedure(s) (LRB): CARDIAC CATHETERIZATION (N/A) Findings: Discrete 90% stenosis in the prox-to-mid RCA. Severe diffuse disease in the distal vessel. Discrete LCX stenosis in a non-culprit artery. S/P DESx3 in the fmgmkgsq-ui-bldiko RCA. Aspiration thrombectomy performed, and integrellin bolus x2+ infusion. Nicardipine given during case due to intermittent sluggish flow. Complications: None documented in this encounter Plan of Treatment Upcoming Encounters Date Type Specialty Care Team Description 06/30/2022 Office Visit Endocrinology Alan Terrell MD [facility] ENDOCRINOLOGY [place], [place] [address] (Wo rk) Scheduled Referrals Name [...] are i n the results section. CT [place] [facility] [facility] STAT 11/30/2019 4:36 Res [...] athologist Signature Potassium 3.9 3.5 - 5.0 [facility] DOV mmol/L [facility] LABORATORY Comment: Please note: ??Patients [...] Organization Address City/State/[place] [address] (ABNORMAL) Hemogram (12/08/2019 12:39 PM EDT) Analysis Performed At Patho logist Time Signature WBC 9.9 (H) 4.0 - 9.5 [place] DOV x10(3)/[facility] LABORATORY RBC 4.51 (L) 4.58 - [place] DOV 5.54 [facility] x10(6)/[facility] LABORATORY Hemoglobin 13.0 (L) 13.7 - [place] DOV 16.5 gm/dL [facility] LABORATORY Hematocrit 40.5 40.5 - StreetcarDOV 48.5 % [facility] LABORATORY MCV 89.8 82.9 - [place] DOV 93.1 [facility] LABORATORY MCH 28.8 27.5 - [place] DOV 32.1 pg [facility] LABORATORY MCHC 32.1 32.0 - [place] DOV 35.7 gm/dL [facility]OR[facility]ORY Platelets 214 145 - 357 [place] DOV x10(3)/[facility] LABORATORY RDWSD 49.2 (H) 36.0 - [place] DOV 45.0 [facility] LABORATORY RDWCV 15.1 (H) 11.4 - StreetcarDOV 13.8 % [facility] LABORATORY MPV 12.1 7.6 - 12.9 [place] DOV [facility] LABORATORY nRBC % Auto 0.0 % [facility] LABORATORY nRBC Abs Auto 0.000 0.000 - [place] DOV 0.000 [facility] x10(3)/[facility] LABORATORY Specimen Anatomical Collection Method Collection Time Receive d Time (Source) Location / / Volume Laterality Blood specimen 12/08/2019 12:39 0 (specimen) PM EDT 12:47 PM EDT Resulting Agency Comment Spec In Lab Gretchen Yoon MD HEMATOLOGY ORDERABLES Performing Organization Address City/State/ZIP Code Phon e Number [address] Hepatic Function Panel (12/08/2019 6:28 AM EDT) athologist Signature Total Protein 6.6 6.1 - 8.0 [facility] gm/dL [facility]OR[facility]ORY Albumin 3.2 3.2 - 5.2 [facility] LABOR[facility] AST 18 0 - 39 [facility] unit/L [facility] ALT 13 0 - 55 [facility] unit/L [facility]ORY Alk Phos 64 40 - 130 [facility] unit/L [facility] LABORATORY Total 0.4 0.2 - 1.3 [facility] Bilirubin mg/dL [facility] LABORATORY Bili, Direct 0.1 0.0 - 0.3 [facility] mg/dL [facility] LABORATORY Specimen Anatomical Collection Method Collection Time Receive d Time (Source) Location / / Volume Laterality Blood specimen Venous Draw / 12/08/2019 6:28 AM 2019 6:36 (specimen) Unknown EDT AM EDT Resulting Agency Comment Spec In Lab Riki Stevens MD CHEMISTRY ORDERABLES Performing Organization Address City/State/ZIP Code Phon e Number [address] (ABNORMAL) TSH (12/08/2019 6:28 AM EDT) P athologist Signature TSH 5.27 (H) 0.27 - 4.20 [facility] DOV mcIU/mL [facility] LABORATORY Specimen Anatomical Collection Method Collection Time Receive d Time (Source) Location / / Volume Laterality Blood specimen Venous Draw / 12/08/2019 6:28 AM 2019 6:36 (specimen) Unknown EDT AM EDT Resulting Agency Comment Spec In Lab Darrell Glasgow MD CHEMISTRY ORDERABLES Performing Organization Address City/State/ZIP Code Phon e Number [address] Potassium (12/08/2019 6:28 AM EDT) P athologist Signature Potassium 4.2 3.5 - 5.0 [facility] mmol/L [facility] LABORATORY Comment: Please note: ??Patients [...] [facility]/[place] [address] (ABNORMAL) Differential, Automated (12/08/2019 12:43 AM EDT) Patholo gist Method Time Signature Neutrophils % 60.7 % [facility] LABORATORY Neutr Abs (ANC) 6.81 (H) 1.70 - [facility] 6.10 [facility] x10(3)/[facility] LABORATORY Lymphocytes % 23.4 % [facility] LABORATORY Lymphocytes Abs 2.6 0.9 - 3.2 [facility] x10(3)/[facility] LABORATORY Monocytes % 10.0 % [facility] LABORATORY Monocyte Abs 1.1 (H) 0.3 - 0.9 [facility] x10(3)/[facility] LABORATORY Eosinophils % 3.7 % [facility] LABORATORY Eosinophils Abs 0.4 0.0 - 0.4 [facility] x10(3)/[facility] LABORATORY Basophils % 1.2 % [facility] LABORATORY Basophils Abs 0.1 0.0 - 0.1 [facility] DOV x10(3)/[facility] LABORATORY Immature Gran % 1.00 [...] Gran Abs 0.11 (H) 0.00 - 0.04 x10(3)/[facility] LABORATORY Specimen Anatomical Collection Method Collection Time Receive d Time (Source) Location / / Volume Laterality Blood specimen 12/08/2019 12:43 0 (specimen) AM EDT 12:52 AM EDT Resulting Agency Comment Spec In Lab Riki Stevens MD HEMATOLOGY ORDERABLES Performing Organization Address City/State/[place] [address] (ABNORMAL) Hemogram (12/08/2019 12:43 AM EDT) Analysis Performed At Patho logist Time Signature WBC 11.2 (H) 4.0 - 9.5 [facility] x10(3)/[facility] LABORATORY RBC 4.46 (L) 4.58 - [facility] DOV 5.54 [facility] x10(6)/[facility] LABORATORY Hemoglobin 13.1 (L) 13.7 - [facility] 16.5 gm/dL [facility] LABORATORY Hematocrit 40.5 40.5 - [place] DOV 48.5 % [facility] LABORATORY MCV 90.8 82.9 - [facility] 93.1 [facility] LABORATORY MCH 29.4 27.5 - [place] DOV 32.1 pg [facility] LABORATORY MCHC 32.3 32.0 - [facility] DOV 35.7 gm/dL [facility] LABORATORY Platelets 215 145 - 357 [facility] x10(3)/[facility] RDWSD 49.8 (H) 36.0 - [place] DOV 45.0 [facility] LABORATORY RDWCV 15.2 (H) 11.4 - MEL[place] MONAE 13.8 % [facility] LABORATORY MPV 12.3 7.6 - 12.9 MELINA MONAE fL [facility] LABORATORY nRBC % Auto 0.0 % [facility] LABORATORY nRBC Abs Auto 0.000 0.000 - M[place] MONAE 0.000 [facility] x10(3)/[facility] LABORATORY Specimen Anatomical Collection Method Collection Time Receive d Time (Source) Location / / Volume Laterality Blood specimen 12/08/2019 12:43 0 (specimen) AM EDT 12:52 AM EDT Resulting Agency Comment Spec In Lab Riki Stevens MD HEMATOLOGY ORDERABLES Performing Organization Address City/State/ZIP Code Phon e Number [address] Magnesium (12/08/2019 12:43 AM EDT) P athologist Signature Magnesium 1.01 0.69 - 1.07 [facility] mmol/L [facility] LABORATORY Specimen Anatomical Collection Method Collection Time Receive d Time (Source) Location / / Volume Laterality Blood specimen 12/08/2019 12:43 0 (specimen) AM EDT 12:52 AM EDT Resulting Agency Comment Spec In Lab Gretchen Yoon MD CHEMISTRY ORDERABLES Performing Organization Address City/State/ZIP Code Phon e Number [address] (ABNORMAL) BMP w/fasting Glucose (12/08/2019 12:43 AM EDT) P athologist Signature Glucose 106 (H) 65 - 99 [facility] Fasting mg/dL [facility] LABORATORY Comment: ?Fasting* Glucose Interpretive [...] of Diabetes Mellitus, Position Statement from the [place] [employer]. ??Diabete s Care, Volume 33, Supplement 1, Jul 2009 BUN 14 10 - 20 mg/dL [facility] LABORATORY Creatinine 1.16 0.80 - 1.50 mg/dL [facility] LABORATORY Sodium 134 (L) 135 - 145 mmol/L [facility] LABORATORY Potassium 4.0 3.5 - 5.0 mmol/L [facility] LABOR[facility] Comment: Please note: ??Patients with [...] LABORATORY Calcium 8.9 8.5 - 10.5 mg/dL [facility] LABORATORY Estimated GFR 62 >=60 mL/min/1.73 m?? [facility] LABOR[facility]ORY Comment: The eGFR was calculated using the CKD-EP I equation. As with all creatinine based estimates of kidney function, eGFR values calculated with the CKD-EPI equation are not accurate in patients wi th acute kidney failure, extremes of body mass or the acutely ill. [email or web address] eGFR 72 >=60 mL/min/1.73 m?? [facility] LABOR[facility]ORY Comment: The eGFR was calculated using the CKD-EP I equation. As with all creatinine based estimates of kidney function, eGFR values calculated with the CKD-EPI equation are not accurate in patients wi th acute kidney failure, extremes of body mass or the acutely ill. [email or web address]/DHMCnkf Specimen Anatomical Collection Method Collection Time Receive d Time (Source) Location / / Volume Laterality Blood specimen 12/08/2019 12:43 0 (specimen) AM EDT 12:52 AM EDT Resulting Agency Comment Spec In Lab Gretchen Yoon MD CHEMISTRY ORDERABLES Performing Organization Address [facility] [place] [address] Heparin (unfractionated) Level (12/08/2019 [...] ORDERABLES Performing Organization Address [facility]/[place] [address] [facility] LABORATORY Drive Potassium (12/07/2019 8:39 PM EDT) athologist Signature Potassium 4.1 3.5 - 5.0 [facility] mmol/L [facility] LABORATORY Comment: Please note: ??Patients [...] [facility]/[place] [address] Potassium (12/07/2019 4:02 PM EDT) P athologist Signature Potassium 4.0 3.5 - 5.0 [facility] mmol/L [facility] LABORATORY Comment: Please note: ??Patients [...] ORDERABLES Performing Organization Address City/[facility] [place] [address] (ABNORMAL) Hemogram (12/07/2019 4:02 PM EDT) Analysis Performed At Patho logist Time Signature WBC 17.4 (H) 4.0 - 9.5 [place] DOV x10(3)/[facility] LABORATORY RBC 4.58 4.58 - [place] DOV 5.54 [facility] x10(6)/[facility] LABORATORY Hemoglobin 13.5 (L) 13.7 - [place] DOV 16.5 gm/dL [facility] LABORATORY Hematocrit 40.8 40.5 - [place] DOV 48.5 % [facility] LABORATORY MCV 89.1 82.9 - [place] DOV 93.1 fL [facility] LABORATORY MCH 29.5 27.5 - M[place]INA MONAE 32.1 pg [facility] LABORATORY MCHC 33.1 32.0 - M[place] MONAE 35.7 gm/dL [facility] LABORATORY Platelets 238 145 - 357 [facility] x10(3)/[facility] LABORATORY RDWSD 48.8 (H) 36.0 - [place] MONAE 45.0 [facility] LABORATORY RDWCV 15.0 (H) 11.4 - [facility] DOV 13.8 % [facility] LABORATORY MPV 12.2 7.6 - 12.9 MELINA MONAE [facility] LABORATORY nRBC % Auto 0.0 % [facility] LABORATORY nRBC Abs Auto 0.000 0.000 - MELINA MONAE 0.000 [facility] x10(3)/[facility] LABORATORY Specimen Anatomical Collection Method Collection Time Receive d Time (Source) Location / / Volume Laterality Blood specimen 12/07/2019 4:02 PM 020 4:08 (specimen) EDT PM EDT Resulting Agency Comment Spec In Lab Gretchen Yoon MD HEMATOLOGY ORDERABLES Performing Organization Address City/State/[place] [address] EKG 12 Lead (12/07/2019 [...] (Bezet) Calculated P -12 degrees [facility] [place] Calculated R 10 degrees [facility] [place] Calculated T -138 degrees [facility] [place] INTERPRETATION Supraventricular tachycardia MUSE SYSTEM Low voltage [...] athologist Signature Potassium 4.2 3.5 - 5.0 [facility] mmol/L [facility] LABORATORY Comment: Please note: ??Patients [...] Organization Address City/State/[place] [address] Heparin (unfractionated) Level (12/07/2019 [...] [facility] [address] Heparin (unfractionated) Level (12/07/2019 [...] [facility]/ZIP Code Phon e [place] [address] [facility] LABORATORY Drive (ABNORMAL) Differential, Automated (12/07/2019 5:20 AM EDT) Patholo gist Method Time Signature Neutrophils % 62.4 % [facility] LABORATORY Neutr Abs (ANC) 5.46 1.70 - [facility] 6.10 [facility] x10(3)/[facility] LABORATORY Lymphocytes % 20.3 % [facility] LABORATORY Lymphocytes Abs 1.8 0.9 - 3.2 [facility] x10(3)/[facility] LABORATORY Monocytes % 11.0 % [facility] LABORATORY Monocyte Abs 1.0 (H) 0.3 - 0.9 [facility] x10(3)/[facility] LABORATORY Eosinophils % 4.5 % [facility] LABORATORY Eosinophils Abs 0.4 0.0 - 0.4 [facility] x10(3)/[facility] LABORATORY Basophils % 0.9 % [facility] LABORATORY Basophils Abs 0.1 0.0 - 0.1 [facility] x10(3)/[facility] LABORATORY Immature Gran % 0.90 % [place] [...] Gran Abs 0.08 (H) 0.00 - 0.04 x10(3)/[facility] LABORATORY Specimen Anatomical Collection Method Collection Time Receive d Time (Source) Location / / Volume Laterality Blood specimen 12/07/2019 5:20 AM 020 5:37 (specimen) EDT AM EDT Resulting Agency Comment Spec In Lab Riki Stevens MD HEMATOLOGY ORDERABLES Performing Organization Address City/State/[place] [address] (ABNORMAL) Hemogram (12/07/2019 5:20 AM EDT) Analysis Performed At Patho logist Time Signature WBC 8.7 4.0 - 9.5 [facility] x10(3)/[facility] LABORATORY RBC 4.20 (L) 4.58 - [facility] 5.54 [facility] x10(6)/[facility] LABORATORY Hemoglobin 12.3 (L) 13.7 - [facility] 16.5 gm/dL [facility] LABORATORY Hematocrit 37.4 (L) 40.5 - M[place]INA MONAE 48.5 % [facility] LABORATORY MCV 89.0 82.9 - M[place] MONAE 93.1 [facility] LABORATORY MCH 29.3 27.5 - [place] VILLANUEVACK 32.1 pg [facility] LABORATORY MCHC 32.9 32.0 - [place] MONAE 35.7 gm/dL [facility] LABORATORY Platelets 181 145 - 357 [place] x10(3)/[facility] LABORATORY RDWSD 47.7 (H) 36.0 - [place] MONAE 45.0 [facility] LABORATORY RDWCV 14.8 (H) 11.4 - [facility] DOV 13.8 % [facility] LABORATORY MPV 12.3 7.6 - 12.9 [facility] LABORATORY nRBC % Auto 0.0 % [facility] LABORATORY nRBC Abs Auto 0.000 0.000 - [place] MARSHDOV 0.000 [facility] x10(3)/[facility] LABORATORY Specimen Anatomical Collection Method Collection Time Receive d Time (Source) Location / / Volume Laterality Blood specimen 12/07/2019 5:20 AM 020 5:37 (specimen) EDT AM EDT Resulting Agency Comment Spec In Lab Riki Stevens MD HEMATOLOGY ORDERABLES Performing Organization Address City/[facility]/[place] [address] Magnesium (12/07/2019 5:20 AM EDT) athologist Signature Magnesium 0.89 0.69 - 1.07 [facility] mmol/L [facility] LABORATORY Specimen Anatomical Collection Method Collection Time Receive d Time (Source) Location / / Volume Laterality Blood specimen 12/07/2019 5:20 AM 020 5:37 (specimen) EDT AM EDT Resulting Agency Comment Spec In Lab Gretchen Yoon MD CHEMISTRY ORDERABLES Performing Organization Address City/[facility] [place] [address] (ABNORMAL) BMP w/fasting Glucose (12/07/2019 5:20 AM EDT) athologist Signature Glucose 100 (H) 65 - 99 [facility] Fasting mg/dL [facility] LABORATORY Comment: ?Fasting* Glucose Interpretive [...] of Diabetes Mellitus, Position Statement from the [place] [employer]. ??Diabete s Care, Volume 33, Supplement 1, Jul 2009 BUN 14 10 - 20 mg/dL [facility] LABORATORY Creatinine 0.83 0.80 - 1.50 mg/dL [facility] LABORATORY Sodium 135 135 - 145 mmol/L [facility] LABORATORY Potassium 3.8 3.5 - 5.0 mmol/L [facility] LABORATORY Comment: Please note: ??Patients with [...] LABORATORY Calcium 8.8 8.5 - 10.5 mg/dL [facility] LABORATORY Estimated GFR 87 >=60 mL/min/1.73 m?? [facility] LABORATORY Comment: The eGFR was calculated using the CKD-EP I equation. As with all creatinine based estimates of kidney function, eGFR values calculated with the CKD-EPI equation are not accurate in patients wi th acute kidney failure, extremes of body mass or the acutely ill. [email or web address] [email or web address] eGFR 101 >=60 mL/min/1.73 m?? [facility] LABORATORY Comment: The eGFR was calculated using the CKD-EP I equation. As with all creatinine based estimates of kidney function, eGFR values calculated with the CKD-EPI equation are not accurate in patients wi th acute kidney failure, extremes of body mass or the acutely ill. [email or web address] [email or web address] Specimen Anatomical Collection Method Collection Time Receive d Time (Source) Location / / Volume Laterality Blood specimen 12/07/2019 5:20 AM 020 5:37 (specimen) EDT AM EDT Resulting Agency Comment Spec In Lab Gretchen Yoon MD CHEMISTRY ORDERABLES Performing Organization Address City/State/[place] [address] Heparin (unfractionated) Level (12/06/2019 [...] Organization Address City/State/[place] [address] Head wo Contrast [...] For questions regarding this report, please contact [facility] number below. ? Narrative 12/06/2019 10:06 [...] Signature WBC 10.4 (H) 4.0 - 9.5 [facility] DOV x10(3)/[facility] LABORATORY RBC 4.32 (L) 4.58 - M[place] DOV 5.54 [facility] x10(6)/[facility] LABORATORY Hemoglobin 12.5 (L) 13.7 - [facility] DOV 16.5 gm/dL [facility] LABORATORY Hematocrit 38.4 (L) 40.5 - [facility] DOV 48.5 % [facility] LABORATORY MCV 88.9 82.9 - [facility] DOV 93.1 [facility] LABORATORY MCH 28.9 27.5 - [place] DOV 32.1 pg [facility] LABORATORY MCHC 32.6 32.0 - [place] DOV 35.7 gm/dL [facility] LABORATORY Platelets 194 145 - 357 [facility] x10(3)/[facility] LABORATORY RDWSD 46.9 (H) 36.0 - [facility] DOV 45.0 [facility] LABORATORY RDWCV 14.6 (H) 11.4 - [facility] DOV 13.8 % [facility] LABORATORY MPV 11.9 7.6 - 12.9 [facility] nRBC % Auto 0.0 % [facility] LABORATORY nRBC Abs Auto 0.000 0.000 - [place] DOV 0.000 [facility] x10(3)/[facility] LABORATORY Specimen Anatomical Collection Method Collection Time Receive d Time (Source) Location / / Volume Laterality Blood specimen 12/06/2019 4:20 PM 020 4:31 (specimen) EDT PM EDT Resulting Agency Comment Spec In Lab Gretchen Yoon MD HEMATOLOGY ORDERABLES Performing Organization Address City/State/ZIP Code Phon e Number [place] [phone] HOSPITAL LABORATORY Drive Heparin (unfractionated) Level (12/06/2019 [...] ORDERABLES Performing Organization Address [facility] [place] [address] [facility] LABORATORY Drive Heparin (unfractionated) Level (12/06/2019 10:02 [...] [facility]/[place] [address] Magnesium (12/06/2019 3:36 AM EDT) P athologist Signature Magnesium 0.86 0.69 - 1.07 [facility] mmol/L [facility] LABORATORY Specimen Anatomical Collection Method Collection Time Receive d Time (Source) Location / / Volume Laterality Blood specimen 12/06/2019 3:36 AM 020 3:45 (specimen) EDT AM EDT Resulting Agency Comment Spec In Lab Gretchen Yoon MD CHEMISTRY ORDERABLES Performing Organization Address City/State/[place] [address] (ABNORMAL) BMP w/fasting Glucose (12/06/2019 3:36 AM EDT) P athologist Signature Glucose 103 (H) 65 - 99 [facility] Fasting mg/dL [facility] LABORATORY Comment: ?Fasting* Glucose Interpretive [...] of Diabetes Mellitus, Position Statement from the [place] [employer]. ??Diabete s Care, Volume 33, Supplement 1, Jul 2009 BUN 20 10 - 20 mg/dL [facility] LABORATORY Creatinine 0.88 0.80 - 1.50 mg/dL [facility] LABORATORY Sodium 136 135 - 145 mmol/L [facility] LABORATORY Potassium 4.0 3.5 - 5.0 mmol/L [facility] LABORATORY Comment: Please note: ??Patients with [...] LABORATORY Calcium 8.7 8.5 - 10.5 mg/dL [facility] LABOR[facility]ORY Estimated GFR 85 >=60 mL/min/1.73 m?? [facility] LABORATORY Comment: The eGFR was calculated using the CKD-EP I equation. As with all creatinine based estimates of kidney function, eGFR values calculated with the CKD-EPI equation are not accurate in patients wi th acute kidney failure, extremes of body mass or the acutely ill. [email or web address] eGFR 99 >=60 mL/min/1.73 m?? [facility] LABORATORY Comment: The eGFR was calculated using the CKD-EP I equation. As with all creatinine based estimates of kidney function, eGFR values calculated with the CKD-EPI equation are not accurate in patients wi th acute kidney failure, extremes of body mass or the acutely ill. [email or web address] Specimen Anatomical Collection Method Collection Time Receive d Time (Source) Location / / Volume Laterality Blood specimen 12/06/2019 3:36 AM 020 3:45 (specimen) EDT AM EDT Resulting Agency Comment Spec In Lab Gretchen Yoon MD CHEMISTRY ORDERABLES Performing Organization Address City/State/[place] [address] (ABNORMAL) Hemogram (12/06/2019 3:36 AM EDT) Analysis Performed At Patho logist Time Signature WBC 9.2 4.0 - 9.5 [facility] x[facility](3[facility] LABORATORY RBC 3.99 (L) 4.58 - [facility] DOV 5.54 [facility] x10(6)/[facility] LABORATORY Hemoglobin 11.9 (L) 13.7 - [facility] DOV 16.5 gm/dL [facility] LABORATORY Hematocrit 35.5 (L) 40.5 - [facility] 48.5 % [facility] LABORATORY MCV 89.0 82.9 - [facility] 93.1 [facility] LABORATORY MCH 29.8 27.5 - [place] DOV 32.1 pg [facility] LABORATORY MCHC 33.5 32.0 - [facility] 35.7 gm/dL [facility] LABORATORY Platelets 164 145 - 357 [facility] x10(3)/[facility] LABORATORY RDWSD 47.6 (H) 36.0 - [place] DOV 45.0 [facility] LABORATORY RDWCV 14.7 (H) 11.4 - [place] DOV 13.8 % [facility] LABORATORY MPV 11.9 7.6 - 12.9 [facility] LABORATORY nRBC % Auto 0.0 % [facility] LABORATORY nRBC Abs Auto 0.000 0.000 - [place] DOV 0.000 [facility] x10(3)/[facility] LABORATORY Specimen Anatomical Collection Method Collection Time Receive d Time (Source) Location / / Volume Laterality Blood specimen 12/06/2019 3:36 AM 020 3:45 (specimen) EDT AM EDT Resulting Agency Comment Spec In Lab Gretchen Yoon MD HEMATOLOGY ORDERABLES Performing Organization Address City/State/[place] [address] (ABNORMAL) Differential, Automated (12/05/2019 10:52 PM EDT) [facility] Method Time Signature Neutrophils % 61.9 % [facility] LABORATORY Neutr Abs (ANC) 6.02 1.70 - [facility] 6.10 [facility] x10(3)/[facility] LABORATORY Lymphocytes % 22.4 % [facility] LABORATORY Lymphocytes Abs 2.2 0.9 - 3.2 [facility] x10(3)/[facility] LABORATORY Monocytes % 10.4 % [facility] LABORATORY Monocyte Abs 1.0 (H) 0.3 - 0.9 [facility] x10(3)/[facility] LABORATORY Eosinophils % 4.1 % [facility] LABORATORY Eosinophils Abs 0.4 0.0 - 0.4 [facility] x10(3)/[facility] LABORATORY Basophils % 0.7 % [facility] LABORATORY Basophils Abs 0.1 0.0 - 0.1 [facility] x10(3)/[facility] LABORATORY Immature Gran % 0.50 % [place] [...] Gran Abs 0.05 (H) 0.00 - 0.04 x10(3)/[facility] LABORATORY Specimen Anatomical Collection Method Collection Time Receive d Time (Source) Location / / Volume Laterality Blood specimen 12/05/2019 10:52 0 (specimen) PM EDT 10:59 PM EDT Resulting Agency Comment Spec In Lab Mandi Barrera MD HEMATOLOGY ORDERABLES Performing Organization Address City/State/[place] [address] (ABNORMAL) Hemogram (12/05/2019 10:52 PM EDT) Analysis Performed At Patho logist Time Signature WBC 9.7 (H) 4.0 - 9.5 [facility] DOV x10(3)/[facility] LABORATORY RBC 4.07 (L) 4.58 - [place] DOV 5.54 [facility] x10(6)/[facility] LABORATORY Hemoglobin 11.9 (L) 13.7 - [facility] DOV 16.5 gm/dL [facility] LABORATORY Hematocrit 36.4 (L) 40.5 - [facility] 48.5 % [facility] LABORATORY MCV 89.4 82.9 - [facility] 93.1 [facility] LABORATORY MCH 29.2 27.5 - [facility] DOV 32.1 pg [facility] LABORATORY MCHC 32.7 32.0 - [facility] DOV 35.7 gm/dL [facility] LABORATORY Platelets 167 145 - 357 [facility] x10(3)/[facility] LABORATORY RDWSD 47.7 (H) 36.0 - [facility] DOV 45.0 [facility] LABORATORY RDWCV 14.6 (H) 11.4 - [facility] DOV 13.8 % [facility] LABORATORY MPV 12.1 7.6 - 12.9 [facility] DOV [facility] LABORATORY nRBC % Auto 0.0 % [facility] LABORATORY nRBC Abs Auto 0.000 0.000 - [facility] DOV 0.000 [facility] x10(3)/[facility] LABORATORY Specimen Anatomical Collection Method Collection Time Receive d Time (Source) Location / / Volume Laterality Blood specimen 12/05/2019 10:52 0 (specimen) PM EDT 10:59 PM EDT Resulting Agency Comment Spec In Lab Mandi Barrera MD HEMATOLOGY ORDERABLES Performing Organization Address City/State/ZIP Code Phon e Number [place] [phone] HOSPITAL LABORATORY Drive Heparin (unfractionated) Level (12/05/2019 [...] Organization Address City/State/ZIP Code Phon e Number [place] [phone] HOSPITAL LABORATORY Drive MRI Brain wwo Contrast [...] below. ? Electronically signed by: ALBA Jenkins [facility] ([phone]), at 12/05/2019 10:02 PM Narrative 12/05/2019 10:02 [...] Time Signature WBC 8.7 4.0 - 9.5 [facility] x[facility](3[facility] LABORATORY RBC 4.17 (L) 4.58 - [place] DOV 5.54 [facility] x10(6)/[facility] LABORATORY Hemoglobin 12.4 (L) 13.7 - [place] DOV 16.5 gm/dL [facility] LABORATORY Hematocrit 37.0 (L) 40.5 - [place] DOV 48.5 % [facility] LABORATORY MCV 88.7 82.9 - [place] DOV 93.1 [facility] LABORATORY MCH 29.7 27.5 - [place] DOV 32.1 pg [facility] LABORATORY MCHC 33.5 32.0 - [place] DOV 35.7 gm/dL [facility] LABORATORY Platelets 173 145 - 357 [facility] x[facility](3[facility] LABORATORY RDWSD 47.3 (H) 36.0 - [facility] DOV 45.0 [facility] LABORATORY RDWCV 14.6 (H) 11.4 - [place] DOV 13.8 % [facility] LABORATORY MPV 12.1 7.6 - 12.9 [facility] DOV [facility] LABORATORY nRBC % Auto 0.0 % [facility] LABORATORY nRBC Abs Auto 0.000 0.000 - [place] DOV 0.000 [facility] x10(3)/[facility] LABORATORY Specimen Anatomical Collection Method Collection Time Receive d Time (Source) Location / / Volume Laterality Blood specimen 12/05/2019 1:00 PM 020 1:13 (specimen) EDT PM EDT Resulting Agency Comment Spec In Lab Gretchen Yoon MD HEMATOLOGY ORDERABLES Performing Organization Address City/State/ZIP Code Phon e Number [place] [phone] HOSPITAL LABORATORY Drive EKG 12 Lead (12/05/2019 10:52 AM EDT) Component Value Ref Range Test Analysis Performed Pathologis t Method Time At Signature Ventricular rate 72 BPM MUSE SYSTEM Atrial Rate 72 BPM MUSE SYSTEM P-R Interval 138 ms MUSE SYSTEM QRS Duration 96 ms MUSE SYSTEM Q-T Interval 396 ms MUSE SYSTEM QTC Calculated 433 ms MUSE SYSTEM (Bezet) Calculated P [place] 65 degrees MUSE SYSTEM Calculated R [place] 13 degrees MUSE SYSTEM Calculated T [place] 0 degrees MUSE SYSTEM INTERPRETATION Sinus rhythm Occasional Premature ventricular complexe s MUSE SYSTEM Possible Inferior infarct (cited on or before 29-NOV-2019) Abnormal ECG When compared with ECG of 04-DEC-2019 10:43, Sinus rhythm has replaced Atrial fibrillation Vent. rate has decreased BY ??86 BPM Confirmed by MD Ceja Daniel ([id number]) on 12/05/2019 3:55:22 PM Specimen Anatomical Collection Method Collection Time Receive d Time (Source) Location / / Volume Laterality 12/05/2019 10:52 12/05/2019 3:55 AM EDT PM EDT Paris Lagos MD ECG ORDERABLES Performing Organization Address City/State/ZIP Code Phon e Number MUSE SYSTEM Duplex Study for DVT, Bilat legs (12/05/2019 7:00 AM EDT) Component Value Ref Test Analysis Performed At [facility] gist Range Method Time Signature VB Text Department: Vascular Surgery Lab VASCUBASE Report Patient: [id number] (ANGEL LUIS SALINAS) CPT: 67635 ICD10: I26.99 Referring Physician: GRETCHEN YOON ?? [...] athologist Signature Magnesium 0.87 0.69 - 1.07 [facility] mmol/L [facility] LABORATORY Specimen Anatomical Collection Method Collection Time Receive d Time (Source) Location / / Volume Laterality Blood specimen 12/05/2019 4:18 AM 020 4:31 (specimen) EDT AM EDT Resulting Agency Comment Spec In Lab Gretchen Yoon MD CHEMISTRY ORDERABLES Performing Organization Address City/State/[place] [address] (ABNORMAL) BMP w/fasting Glucose (12/05/2019 4:18 AM EDT) P athologist Signature Glucose 104 (H) 65 - 99 [facility] Fasting mg/dL [facility] LABORATORY Comment: ?Fasting* Glucose Interpretive [...] of Diabetes Mellitus, Position Statement from the [place] [employer]. ??Diabete s Care, Volume 33, Supplement 1, Jul 2009 BUN 21 (H) 10 - 20 mg/dL [facility] LABORATORY Creatinine 1.02 0.80 - 1.50 mg/dL [facility] LABORATORY Sodium 136 135 - 145 mmol/L [facility] LABORATORY Potassium 3.9 3.5 - 5.0 mmol/L [facility] LABOR[facility] Comment: Please note: ??Patients with [...] LABORATORY Calcium 8.8 8.5 - 10.5 mg/dL [facility] LABOR[facility]ORY Estimated GFR 73 >=60 mL/min/1.73 m?? [facility] LABORATORY Comment: The eGFR was calculated using the CKD-EP I equation. As with all creatinine based estimates of kidney function, eGFR values calculated with the CKD-EPI equation are not accurate in patients wi th acute kidney failure, extremes of body mass or the acutely ill. [email or web address] [email or web address] eGFR 84 >=60 mL/min/1.73 m?? [facility] LABORATORY Comment: The eGFR was calculated using the CKD-EP I equation. As with all creatinine based estimates of kidney function, eGFR values calculated with the CKD-EPI equation are not accurate in patients wi th acute kidney failure, extremes of body mass or the acutely ill. [email or web address] Specimen Anatomical Collection Method Collection Time Receive d Time (Source) Location / / Volume Laterality Blood specimen 12/05/2019 4:18 AM 020 4:31 (specimen) EDT AM EDT Resulting Agency Comment Spec In Lab Gretchen Yoon MD CHEMISTRY ORDERABLES Performing Organization Address City/State/[place] [address] (ABNORMAL) Hemogram (12/05/2019 4:18 AM EDT) Analysis Performed At Patho logist Time Signature WBC 8.6 4.0 - 9.5 [facility] x[facility](3[facility] LABORATORY RBC 4.28 (L) 4.58 - [place] DOV 5.54 [facility] x10(6)/[facility] LABORATORY Hemoglobin 12.4 (L) 13.7 - [facility] 16.[facility] gm/dL [facility] LABORATORY Hematocrit 37.3 (L) 40.5 - [facility] 48.5 % [facility] LABORATORY MCV 87.1 82.9 - [facility] 93.1 [facility] LABORATORY MCH 29.0 27.5 - [place] DOV 32.1 pg [facility] LABORATORY MCHC 33.2 32.0 - [place] DOV 35.7 gm/dL [facility] LABORATORY Platelets 163 145 - 357 [facility] x10(3)/[facility] LABORATORY RDWSD 46.4 (H) 36.0 - [facility] DOV 45.0 [facility] LABORATORY RDWCV 14.4 (H) 11.4 - [facility] DOV 13.8 % [facility] LABORATORY MPV 11.7 7.6 - 12.9 [facility] LABORATORY nRBC % Auto 0.0 % [facility] LABORATORY nRBC Abs Auto 0.000 0.000 - [facility] DOV 0.000 [facility] x10(3)/[facility] LABORATORY Specimen Anatomical Collection Method Collection Time Receive d Time (Source) Location / / Volume Laterality Blood specimen 12/05/2019 4:18 AM 020 4:31 (specimen) EDT AM EDT Resulting Agency Comment Spec In Lab Gretchen Yoon MD HEMATOLOGY ORDERABLES Performing Organization Address City/State/[place] [address] Cardiac for Morphology [...] For questions regarding this report, please contact [facility] number below. ? Narrative 12/04/2019 6:16 [...] from neck/greatest puja meter to back wall: TAMAZIGHT 91, CAU 13: ??19 mm CORTES ??1, [...] from neck/greatest puja meter to back wall: TAMAZIGHT 91, CAU 13: 19 mm CORTES 1, [...] Time Signature WBC 8.9 4.0 - 9.5 [facility] x10(3)/[facility] LABORATORY RBC 4.69 4.58 - [facility] 5.54 [facility] x10(6)/[facility] LABORATORY Hemoglobin 13.5 (L) 13.7 - [facility] 16.5 gm/dL [facility] LABORATORY Hematocrit 41.7 40.5 - [facility] 48.5 % [facility] LABORATORY MCV 88.9 82.9 - MELINA MONAE 93.1 [facility] LABORATORY MCH 28.8 27.5 - MELINA MONAE 32.1 pg [facility] LABORATORY MCHC 32.4 32.0 - MELINA MONAE 35.7 gm/dL [facility] LABORATORY Platelets 196 145 - 357 [facility] x10(3)/[facility] LABORATORY RDWSD 46.7 (H) 36.0 - MELINA DOV 45.0 [facility] LABORATORY RDWCV 14.5 (H) 11.4 - MELINA DOV 13.8 % [facility] LABORATORY MPV 12.1 7.6 - 12.9 [facility] nRBC % Auto 0.0 % [facility] LABORATORY nRBC Abs Auto 0.000 0.000 - MELINA MONAE 0.000 [facility] x10(3)/[facility] LABORATORY Specimen Anatomical Collection Method Collection Time Receive d Time (Source) Location / / Volume Laterality Blood specimen 12/04/2019 12:55 0 1:06 (specimen) PM EDT PM EDT Resulting Agency Comment Spec In Lab Gretchen Yoon MD HEMATOLOGY ORDERABLES Performing Organization Address City/State/[place] [address] EKG 12 Lead (12/04/2019 10:43 AM EDT) Component Value Ref Range Test Analysis Performed Pathologis t Method Time At Signature Ventricular rate 158 BPM MUSE SYSTEM Atrial Rate 102 BPM MUSE SYSTEM QRS Duration 92 ms MUSE SYSTEM Q-T Interval 294 ms MUSE SYSTEM QTC Calculated 476 ms MUSE SYSTEM (Bezet) Calculated R [place] 17 degrees MUSE SYSTEM Calculated T [place] 90 degrees MUSE SYSTEM INTERPRETATION Atrial fibrillation with rapid ventricular response MUSE SYSTEM Possible Inferior infarct (cited on or before 29-NOV-2019) Abnormal ECG When compared with ECG of 30-NOV-2019 21:07, Atrial fibrillation has replaced Sinus rhythm Vent. rate has increased BY ??65 BPM Confirmed by MD Ceja Daniel ([id number]) on 12/05/2019 8:59:44 AM Specimen Anatomical Collection Method Collection Time Receive d Time (Source) Location / / Volume Laterality 12/04/2019 10:43 12/05/2019 8:59 AM EDT AM EDT Gretchen Yoon MD ECG ORDERABLES Performing Organization Address City/State/ZIP Code Phon e Number MUSE SYSTEM (ABNORMAL) Magnesium (12/04/2019 4:28 AM EDT) athologist Signature Magnesium 1.17 (H) 0.69 - 1.07 [facility] mmol/L [facility] LABORATORY Specimen Anatomical Collection Method Collection Time Receive d Time (Source) Location / / Volume Laterality Blood specimen 12/04/2019 4:28 AM 020 4:40 (specimen) EDT AM EDT Resulting Agency Comment Spec In Lab Gretchen Yoon MD CHEMISTRY ORDERABLES Performing Organization Address City/State/[place] [address] (ABNORMAL) BMP w/fasting Glucose (12/04/2019 4:28 AM EDT) P athologist Signature Glucose 108 (H) 65 - 99 [facility] Fasting mg/dL [facility] LABORATORY Comment: ?Fasting* Glucose Interpretive [...] of Diabetes Mellitus, Position Statement from the [place] [employer]. ??Diabete s Care, Volume 33, Supplement 1, Jul 2009 BUN 19 10 - 20 mg/dL [facility] LABORATORY Creatinine 0.89 0.80 - 1.50 mg/dL [facility] LABORATORY Sodium 135 135 - 145 mmol/L [facility] LABORATORY Potassium 4.2 3.5 - 5.0 mmol/L [facility] LABORATORY Comment: Please note: ??Patients with [...] LABORATORY Calcium 8.5 8.5 - 10.5 mg/dL [facility] LABORATORY Estimated GFR 85 >=60 mL/min/1.73 m?? [facility] LABORATORY Comment: The eGFR was calculated using the CKD-EP I equation. As with all creatinine based estimates of kidney function, eGFR values calculated with the CKD-EPI equation are not accurate in patients wi th acute kidney failure, extremes of body mass or the acutely ill. [email or web address]SAnkf eGFR 98 >=60 mL/min/1.73 m?? [facility] LABORATORY Comment: The eGFR was calculated using the CKD-EP I equation. As with all creatinine based estimates of kidney function, eGFR values calculated with the CKD-EPI equation are not accurate in patients wi th acute kidney failure, extremes of body mass or the acutely ill. [email or web address] TULSAnkf Specimen Anatomical Collection Method Collection Time Receive d Time (Source) Location / / Volume Laterality Blood specimen 12/04/2019 4:28 AM 020 4:40 (specimen) EDT AM EDT Resulting Agency Comment Spec In Lab Gretchen Yoon MD CHEMISTRY ORDERABLES Performing Organization Address City/State/[place] [address] (ABNORMAL) Hemogram (12/04/2019 4:28 AM EDT) Analysis Performed At Patho logist Time Signature WBC 7.8 4.0 - 9.5 [facility] x10(3)/[facility] LABORATORY RBC 4.10 (L) 4.58 - [facility] 5.54 [facility] x10(6)/[facility] LABORATORY Hemoglobin 12.0 (L) 13.7 - [facility] 16.5 gm/dL [facility] LABORATORY Hematocrit 36.5 (L) 40.5 - MELINA MONAE 48.5 % [facility] LABORATORY MCV 89.0 82.9 - MELINA WHITTENCOCK 93.1 [facility] LABORATORY MCH 29.3 27.5 - MELINA [place] 32.1 pg [facility] LABORATORY MCHC 32.9 32.0 - MELINA WHITT[place]OCK 35.7 gm/dL [facility] LABORATORY Platelets 151 145 - 357 [facility] x10(3)/[facility] LABORATORY RDWSD 46.9 (H) 36.0 - MELINA MONAE 45.0 [facility] LABORATORY RDWCV 14.4 (H) 11.4 - MELINA DOV 13.8 % [facility] LABORATORY MPV 12.2 7.6 - 12.9 [facility] LABORATORY nRBC % Auto 0.0 % [facility] LABORATORY nRBC Abs Auto 0.000 0.000 - MELINA MONAE 0.000 [facility] x10(3)/[facility] LABORATORY Specimen Anatomical Collection Method Collection Time Receive d Time (Source) Location / / Volume Laterality Blood specimen 12/04/2019 4:28 AM 020 4:40 (specimen) EDT AM EDT Resulting Agency Comment Spec In Lab Gretchen Yoon MD HEMATOLOGY ORDERABLES Performing Organization Address City/State/[place] [address] Potassium (12/03/2019 7:55 PM EDT) P athologist Signature Potassium 3.9 3.5 - 5.0 [facility] mmol/L [facility] LABORATORY Comment: Please note: ??Patients [...] Organization Address City/State/[place] [address] Potassium (12/03/2019 1:57 PM EDT) P athologist Signature Potassium 3.7 3.5 - 5.0 MELINA DOV mmol/L [facility] LABORATORY Comment: Please note: ??Patients [...] [facility]/[place] [address] (ABNORMAL) Hemogram (12/03/2019 1:57 PM EDT) Analysis Performed At Patho logist Time Signature WBC 8.8 4.0 - 9.5 MELINA DOV x10(3)/[facility] LABORATORY RBC 4.27 (L) 4.58 - MELINA DOV 5.54 [facility] x10(6)/[facility] LABORATORY Hemoglobin 12.5 (L) 13.7 - MELINA DOV 16.5 gm/dL [facility] LABORATORY Hematocrit 37.5 (L) 40.5 - MELINA DOV 48.5 % [facility] LABORATORY MCV 87.8 82.9 - MELINA DOV 93.1 [facility] LABORATORY MCH 29.3 27.5 - MELINA DOV 32.1 pg [facility] LABORATORY MCHC 33.3 32.0 - MELINA DOV 35.7 gm/dL [facility] LABORATORY Platelets 158 145 - 357 MELINA DOV x10(3)/[facility] LABORATORY RDWSD 46.9 (H) 36.0 - MELINA DOV 45.0 [facility] LABORATORY RDWCV 14.5 (H) 11.4 - MELINA DOV 13.8 % [facility] LABORATORY MPV 12.2 7.6 - 12.9 MELINA MONAE fL [facility] LABORATORY nRBC % Auto 0.0 % [facility] LABORATORY nRBC Abs Auto 0.000 0.000 - MELINA MONAE 0.000 [facility] x10(3)/[facility] LABORATORY Specimen Anatomical Collection Method Collection Time Receive d Time (Source) Location / / Volume Laterality Blood specimen 12/03/2019 1:57 PM 020 2:21 (specimen) EDT PM EDT Resulting Agency Comment Spec In Lab Gretchen Yoon MD HEMATOLOGY ORDERABLES Performing Organization Address City/State/ZIP Code Phon e Number [address] Magnesium (12/03/2019 4:02 AM EDT) P athologist Signature Magnesium 0.79 0.69 - 1.07 [facility] mmol/L [facility] LABORATORY Specimen Anatomical Collection Method Collection Time Receive d Time (Source) Location / / Volume Laterality Blood specimen 12/03/2019 4:02 AM 020 4:16 (specimen) EDT AM EDT Resulting Agency Comment Spec In Lab Gretchen Yoon MD CHEMISTRY ORDERABLES Performing Organization Address City/[facility]/ZIP Code Phon e Number [address] (ABNORMAL) BMP w/fasting Glucose (12/03/2019 4:02 AM EDT) P athologist Signature Glucose 100 (H) 65 - 99 [facility] Fasting mg/dL [facility] LABORATORY Comment: ?Fasting* Glucose Interpretive [...] of Diabetes Mellitus, Position Statement from the [place] [employer]. ??Diabete s Care, Volume 33, Supplement 1, Jul 2009 BUN 17 10 - 20 mg/dL [facility] LABORATORY Creatinine 0.95 0.80 - 1.50 mg/dL [facility] LABORATORY Sodium 136 135 - 145 mmol/L [facility] LABORATORY Potassium 3.4 (L) 3.5 - 5.0 mmol/L [facility] LABORATORY Comment: Please note: ??Patients with [...] Calcium 8.3 (L) 8.5 - 10.5 mg/dL [facility] LABORATORY Estimated GFR 79 >=60 mL/min/1.73 m?? [facility] LABORATORY Comment: The eGFR was calculated using the CKD-EP I equation. As with all creatinine based estimates of kidney function, eGFR values calculated with the CKD-EPI equation are not accurate in patients wi th acute kidney failure, extremes of body mass or the acutely ill. [email or web address]SAnkf eGFR 92 >=60 mL/min/1.73 m?? [facility] LABORATORY Comment: The eGFR was calculated using the CKD-EP I equation. As with all creatinine based estimates of kidney function, eGFR values calculated with the CKD-EPI equation are not accurate in patients wi th acute kidney failure, extremes of body mass or the acutely ill. [email or web address] Specimen Anatomical Collection Method Collection Time Receive d Time (Source) Location / / Volume Laterality Blood specimen 12/03/2019 4:02 AM 020 4:16 (specimen) EDT AM EDT Resulting Agency Comment Spec In Lab Gretchen Yoon MD CHEMISTRY ORDERABLES Performing Organization Address City/State/[place] [address] (ABNORMAL) Hemogram (12/03/2019 4:02 AM EDT) Analysis Performed At Patho logist Time Signature WBC 9.1 4.0 - 9.5 [facility] x10(3[facility] LABORATORY RBC 4.01 (L) 4.58 - MELINA DOV 5.54 [facility] x10(6)/[facility] LABORATORY Hemoglobin 11.8 (L) 13.7 - [facility] 16[facility] gm/dL [facility] LABORATORY Hematocrit 35.6 (L) 40.5 - [facility] 48.5 % [facility] LABORATORY MCV 88.8 82.9 - [facility] 93.1 [facility] LABORATORY MCH 29.4 27.5 - MELINA DOV 32.1 pg [facility] LABORATORY MCHC 33.1 32.0 - MELINA DOV 35.7 gm/dL [facility] LABORATORY Platelets 130 (L) 145 - 357 [facility] x10(3)/[facility] LABORATORY RDWSD 46.6 (H) 36.0 - MELINA DOV 45.0 [facility] LABORATORY RDWCV 14.4 (H) 11.4 - [facility] 13.8 % [facility] LABORATORY MPV 12.4 7.6 - 12.9 [facility] LABORATORY nRBC % Auto 0.0 % [facility] LABORATORY nRBC Abs Auto 0.000 0.000 - MELINA DOV 0.000 [facility] x10(3)/[facility] LABORATORY Specimen Anatomical Collection Method Collection Time Receive d Time (Source) Location / / Volume Laterality Blood specimen 12/03/2019 4:02 AM 020 4:16 (specimen) EDT AM EDT Resulting Agency Comment Spec In Lab Gretchen Yoon MD HEMATOLOGY ORDERABLES Performing Organization Address City/State/[place] [address] XR Chest One View [...] Signature WBC 10.6 (H) 4.0 - 9.5 [facility] x[facility](3[facility] LABORATORY RBC 4.00 (L) 4.58 - MELINA DOV 5.54 [facility] x10(6)/[facility] LABORATORY Hemoglobin 11.9 (L) 13.7 - MELINA DOV 16.5 gm/dL [facility] LABORATORY Hematocrit 35.7 (L) 40.5 - [facility] DOV 48.5 % [facility] LABORATORY MCV 89.3 82.9 - MELINA DOV 93.1 [facility] LABORATORY MCH 29.8 27.5 - MELINA DOV 32.1 pg [facility] LABORATORY MCHC 33.3 32.0 - MELINA DOV 35.7 gm/dL [facility] LABORATORY Platelets 120 (L) 145 - 357 [facility] x[facility](3[facility] LABORATORY RDWSD 47.5 (H) 36.0 - MELINA DOV 45.0 [facility] LABORATORY RDWCV 14.6 (H) 11.4 - MELINA DOV 13.8 % [facility] LABORATORY MPV 12.0 7.6 - 12.9 MELINA DOV [facility] LABORATORY nRBC % Auto 0.0 % [facility] LABORATORY nRBC Abs Auto 0.000 0.000 - MELINA DOV 0.000 [facility] x10(3)/[facility] LABORATORY Specimen Anatomical Collection Method Collection Time Receive d Time (Source) Location / / Volume Laterality Blood specimen 12/02/2019 12:50 0 1:22 (specimen) PM EDT PM EDT Resulting Agency Comment Spec In Lab Gretchen Yoon MD HEMATOLOGY ORDERABLES Performing Organization Address City/State/ZIP Code Phon e Number [address] Blue Tube HOLD (12/02/2019 4:55 AM EDT) athologist Signature Blue Hold Sample in [facility] lab. [facility] LABORATORY Specimen Anatomical Collection Method Collection Time Receive d Time (Source) Location / / Volume Laterality Blood specimen Venous Draw / 12/02/2019 4:55 AM 2019 5:03 (specimen) Unknown EDT AM EDT Darrell Glasgow MD HEMATOLOGY ORDERABLES Performing Organization Address City/State/ZIP Code Phon e Number [address] Magnesium (12/02/2019 4:55 AM EDT) athologist Signature Magnesium 0.85 0.69 - 1.07 [facility] mmol/L [facility] LABORATORY Specimen Anatomical Collection Method Collection Time Receive d Time (Source) Location / / Volume Laterality Blood specimen 12/02/2019 4:55 AM 020 5:02 (specimen) EDT AM EDT Resulting Agency Comment Spec In Lab Gretchen Yoon MD CHEMISTRY ORDERABLES Performing Organization Address City/State/ZIP Code Phon e Number [address] (ABNORMAL) BMP w/fasting Glucose (12/02/2019 4:55 AM EDT) athologist Signature Glucose 114 (H) 65 - 99 [facility] Fasting mg/dL [facility] LABORATORY Comment: ?Fasting* Glucose Interpretive [...] of Diabetes Mellitus, Position Statement from the [place] [employer]. ??Diabete s Care, Volume 33, Supplement 1, Jul 2009 BUN 13 10 - 20 mg/dL [facility] LABORATORY Creatinine 0.93 0.80 - 1.50 mg/dL [facility] LABORATORY Sodium 135 135 - 145 mmol/L [facility] LABORATORY Potassium 3.7 3.5 - 5.0 mmol/L [facility] LABORATORY Comment: Please note: ??Patients with [...] Calcium 8.1 (L) 8.5 - 10.5 mg/dL [facility] LABORATORY Estimated GFR 81 >=60 mL/min/1.73 m?? [facility] LABORATORY Comment: The eGFR was calculated using the CKD-EP I equation. As with all creatinine based estimates of kidney function, eGFR values calculated with the CKD-EPI equation are not accurate in patients wi th acute kidney failure, extremes of body mass or the acutely ill. [email or web address]SAnkf eGFR 94 >=60 mL/min/1.73 m?? [facility] LABORATORY Comment: The eGFR was calculated using the CKD-EP I equation. As with all creatinine based estimates of kidney function, eGFR values calculated with the CKD-EPI equation are not accurate in patients wi th acute kidney failure, extremes of body mass or the acutely ill. [email or web address] Specimen Anatomical Collection Method Collection Time Receive d Time (Source) Location / / Volume Laterality Blood specimen 12/02/2019 4:55 AM 020 5:02 (specimen) EDT AM EDT Resulting Agency Comment Spec In Lab Gretchen Yoon MD CHEMISTRY ORDERABLES Performing Organization Address City/State/ZIP Code Phon e Number [address] (ABNORMAL) Hemogram (12/02/2019 4:55 AM EDT) Analysis Performed At Patho logist Time Signature WBC 9.3 4.0 - 9.5 MELINA DOV x10(3)/[facility] LABORATORY RBC 3.71 (L) 4.58 - MELINA DOV 5.54 [facility] x10(6)/[facility] LABORATORY Hemoglobin 10.8 (L) 13.7 - [facility] 16.5 gm/dL [facility] LABORATORY Hematocrit 33.1 (L) 40.5 - [facility] 48.5 % [facility] LABORATORY MCV 89.2 82.9 - [facility] 93.1 [facility] LABORATORY MCH 29.1 27.5 - MELINA DOV 32.1 pg [facility] LABORATORY MCHC 32.6 32.0 - MELINA DOV 35.7 gm/dL [facility] LABORATORY Platelets 93 (L) 145 - 357 [facility] x[facility](3[facility] LABORATORY RDWSD 47.1 (H) 36.0 - MELINA DOV 45.0 [facility] LABORATORY RDWCV 14.6 (H) 11.4 - [facility] 13.8 % [facility] LABORATORY MPV 11.7 7.6 - 12.9 [facility] nRBC % Auto 0.0 % [facility] LABORATORY nRBC Abs Auto 0.000 0.000 - MELINA DOV 0.000 [facility] x10(3)/[facility] LABORATORY Specimen Anatomical Collection Method Collection Time Receive d Time (Source) Location / / Volume Laterality Blood specimen 12/02/2019 4:55 AM 020 5:02 (specimen) EDT AM EDT Resulting Agency Comment Spec In Lab Gretchen Yoon MD HEMATOLOGY ORDERABLES Performing Organization Address City/[facility]/ZIP Code Phon e Number [address] Transfuse 1 unit platelets, [...] For questions regarding this report, please contact [facility] number below. ? Electronically signed by: Angel Luis Barboza MD, [facility] ([phone]), at 12/01/2019 8:02 PM Narrative 12/01/2019 8:02 [...] 6:20 PM EDT) athologist Signature Dispensed? Yes [facility] LABORATORY Specimen Anatomical Collection Method Collection Time Receive d Time (Source) Location / / Volume Laterality Blood specimen 12/01/2019 6:20 PM 020 6:18 (specimen) EDT PM EDT Gretchen Yoon MD BLOOD BANK ORDERABLES Performing Organization Address City/State/ZIP Code [facility] [place] [address] Duplex for DVT, Arm, Unilat (12/01/2019 5:08 PM EDT) Component Value Ref Test Analysis Performed At [facility] Range Method Time Signature VB Text Department: Vascular Surgery Lab VASCUBASE Report Patient: [id number] (ANGEL LUIS SALINAS) CPT: 98556 ICD10: R60.0 Referring Physician: GRETCHEN YOON ?? [...] For questions regarding this report, please contact [facility] number below. ? Narrative 12/01/2019 3:53 PM EDT EXAMINATION: CT HEAD WO CONTRAST (GENERIC) CLINICAL HISTORY: Headache, intracranial hemorrhage suspected Serial CT scan: please assess for propag ation of known ICH noted on prior Head CT/imaging. TECHNIQUE: CT head performed without intravenous co ntrast administration. COMPARISON: Head CT 11/30/2019. CT angiogram of the [place] 11/01. FINDINGS: Ventricles are normal [...] Head CT 11/30/2019. CT angiogram of the [place] 11/01. FINDINGS: Ventricles are normal [...] Scan, Peripheral Blood (12/01/2019 12:51 PM EDT) [facility] Method Time Signature Plat Estimate Decreased [facility] LABORATORY RBC Morphology Normal [facility] LABORATORY Giant Less than 1 /HPF [facility] LABORATORY Specimen Anatomical Collection Method Collection Time Receive d Time (Source) Location / / Volume Laterality Blood specimen 12/01/2019 12:51 0 1:05 (specimen) PM EDT PM EDT Resulting Agency Comment Spec In Lab Riki Stevens MD HEMATOLOGY ORDERABLES Performing Organization Address City/State/[place] [address] (ABNORMAL) Differential, Automated (12/01/2019 12:51 PM EDT) [facility] Method Time Signature Neutrophils % 74.9 % [facility] LABORATORY Neutr Abs (ANC) 6.34 (H) 1.70 - [facility] 6.10 [facility] x10(3)/[facility] L LABORATORY Lymphocytes % 11.4 % [facility] LABORATORY Lymphocytes Abs 1.0 0.9 - 3.2 [facility] x10(3)/[facility] LABORATORY Monocytes % 12.4 % [facility] LABORATORY Monocyte Abs 1.0 (H) 0.3 - 0.9 [facility] x10(3)/[facility] LABORATORY Eosinophils % 0.4 % [facility] LABORATORY Eosinophils Abs 0.0 0.0 - 0.4 [facility] x10(3)/[facility] LABORATORY Basophils % 0.4 % [facility] LABORATORY Basophils Abs 0.0 0.0 - 0.1 [facility] x10(3)/[facility] LABORATORY Immature Gran % 0.50 [...] Pita Gran Abs 0.04 0.00 - 0.04 x10(3)/[facility] MAR Y [facility] LABORATORY Specimen Anatomical Collection Method Collection Time Receive d Time (Source) Location / / Volume Laterality Blood specimen 12/01/2019 12:51 0 1:05 (specimen) PM EDT PM EDT Resulting Agency Comment Spec In Lab Riki Stevens MD HEMATOLOGY ORDERABLES Performing Organization Address City/State/[place] [address] (ABNORMAL) Hemogram (12/01/2019 12:51 PM EDT) Analysis Performed At Patho logist Time Signature WBC 8.4 4.0 - 9.5 [facility] x10(3)/[facility] LABORATORY RBC 3.69 (L) 4.58 - [facility] 5.54 [facility] x10(6)/[facility] LABORATORY Hemoglobin 10.8 (L) 13.7 - [facility] 16.5 gm/dL [facility] LABORATORY Hematocrit 32.4 (L) 40.5 - [facility] 48.5 % [facility] LABORATORY MCV 87.8 82.9 - [facility] 93.1 [facility] LABORATORY MCH 29.3 27.5 - [facility] 32.1 pg [facility] LABORATORY MCHC 33.3 32.0 - [facility] 35.7 gm/dL [facility] LABORATORY Platelets 72 (L) 145 - 357 [facility] x10(3)/[facility] LABORATORY RDWSD 47.2 (H) 36.0 - [facility] 45.0 fL [facility] RDWCV 14.6 (H) 11.4 - [facility] 13.8 % [facility] LABORATORY MPV 12.2 7.6 - 12.9 [facility] LABORATORY nRBC % Auto 0.0 % [facility] LABORATORY nRBC Abs Auto 0.000 0.000 - [facility] 0.000 [facility] x10(3)/[facility] LABORATORY Specimen Anatomical Collection Method Collection Time Receive d Time (Source) Location / / Volume Laterality Blood specimen 12/01/2019 12:51 0 1:05 (specimen) PM EDT PM EDT Resulting Agency Comment Spec In Lab Riki Stevens MD HEMATOLOGY ORDERABLES Performing Organization Address City/[facility]/ZIP Code Phon e Number [address] (ABNORMAL) Coox2 (12/01/2019 11:42 AM EDT) Analysis Performed At Patho logist Time Signature pO2 Coox 30 mmHg [facility] LABORATORY Hgb Blood Gas 11.6 (L) 13.7 - [facility] 16.5 gm/dL [facility] LABORATORY O2HB Coox 60.8 % [facility] LABORATORY COHB Coox 0.6 % [facility] LABORATORY Comment: Nonsmokers: 0.5-1.5% COHB Smokers: Variable, but usually less than 10% Toxic: 20-30% COHB Lethal: Greater than 60% COHB METHB Coox 0.6 <=1.5 % [facility] LABORATORY Source Coox Mixed Venous [facility] LABORATORY Specimen Anatomical Collection Method Collection Time Receive d Time (Source) Location / / Volume Laterality Blood specimen 12/01/2019 11:42 0 (specimen) AM EDT 11:42 AM EDT Gretchen Yoon MD CHEMISTRY ORDERABLES Performing Organization Address City/[facility]/ZIP Code Phon e Number [address] Sedimentation rate (12/01/2019 3:55 AM EDT) P athologist Signature Sed Rate 25 3 - 46 [facility] mm/hr [facility] LABORATORY Comment: Effective June 11, [...] [facility]ZIP Code Phon e Number [address] (ABNORMAL) CRP, acute inflammation [...] [facility]/ZIP Code Phon e Number [address] ABORH Recheck Status (12/01/2019 3:55 AM EDT) [facility] Method Time Signature ABORH Recheck Order Placed [facility] LABORATORY ABORH Type Complete [facility] LABORATORY Specimen Anatomical Collection Method Collection Time Receive d Time (Source) Location / / Volume Laterality Blood specimen 12/01/2019 3:55 AM 020 4:15 (specimen) EDT AM EDT Resulting Agency Comment Spec In Lab Lewis Gee MD BLOOD BANK ORDERABLES Performing Organization Address City/[facility]/ZIP Code Phon e Number [address] Antibody screen (12/01/2019 3:55 AM EDT) [employer] Method Time Signature Ab Screen Negative [facility] LABORATORY Expires at 12/04/2019 MELINA MONAE [id number] on: [facility] LABORATORY Specimen Anatomical Collection Method Collection Time Receive d Time (Source) Location / / Volume Laterality Blood specimen 12/01/2019 3:55 AM 020 4:15 (specimen) EDT AM EDT Resulting Agency Comment Spec In Lab Lewis Gee MD BLOOD BANK ORDERABLES Performing Organization Address City/[facility]/[place] [address] ABO/Rh Typing (12/01/2019 3:55 AM EDT) P athologist Signature ABORh Type AB Pos [facility] LABORATORY Specimen Anatomical Collection Method Collection Time Receive d Time (Source) Location / / Volume Laterality Blood specimen 12/01/2019 3:55 AM 020 4:15 (specimen) EDT AM EDT Resulting Agency Comment Spec In Lab Lewis Gee MD BLOOD BANK ORDERABLES Performing Organization Address City/[facility] [place] [address] (ABNORMAL) Troponin (12/01/2019 3:55 AM EDT) P athologist Signature Troponin-T 4.35 (H) 0.00 - MELINA DOV 0.00 ng/mL [facility] LABORATORY Comment: result rechecked-slw The 99th percentile for Troponin T is le ss than 0.01 ng/mL, any detectable cTnT concentration using this assay should be considered elevated. According to the third universal definit ion of myocardial infarction the following criteria with a clinical prese ntation consistent with acute myocardial ischemia meets the diagnosis for a myocardial infarction ([place]). Detection of a rise and/or fall of [...] additional sample may be indicated. Reference: Third Trappe Definition of Myocardial Infarction. Journal of the [place] [employer] 2012;60:1581-98 Specimen Anatomical Collection Method Collection Time Receive d Time (Source) Location / / Volume Laterality Blood specimen 12/01/2019 3:55 AM 020 4:00 (specimen) EDT AM EDT Resulting Agency Comment Spec In Lab Gretchen Yoon MD CHEMISTRY ORDERABLES Performing Organization Address City/[facility]/ZIP Code Phon e Number [address] Magnesium (12/01/2019 3:55 AM EDT) P athologist Signature Magnesium 0.96 0.69 - 1.07 [facility] mmol/L [facility] LABORATORY Specimen Anatomical Collection Method Collection Time Receive d Time (Source) Location / / Volume Laterality Blood specimen 12/01/2019 3:55 AM 020 4:00 (specimen) EDT AM EDT Resulting Agency Comment Spec In Lab Gretchen Yoon MD CHEMISTRY ORDERABLES Performing Organization Address City/[facility]/[place] [address] (ABNORMAL) BMP w/fasting Glucose (12/01/2019 3:55 AM EDT) P athologist Signature Glucose 148 (H) 65 - 99 [facility] Fasting mg/dL [facility] LABORATORY Comment: ?Fasting* Glucose Interpretive [...] of Diabetes Mellitus, Position Statement from the [place] [employer]. ??Diabete s Care, Volume 33, Supplement 1, Jul 2009 BUN 11 10 - 20 mg/dL [facility] LABORATORY Creatinine 0.96 0.80 - 1.50 mg/dL [facility] LABORATORY Sodium 132 (L) 135 - 145 mmol/L [facility] LABORATORY Potassium 4.0 3.5 - 5.0 mmol/L [facility] LABORATORY Comment: Please note: ??Patients with [...] Calcium 7.6 (L) 8.5 - 10.5 mg/dL [facility] LABORATORY Estimated GFR 78 >=60 mL/min/1.73 m?? [facility] LABORATORY Comment: The eGFR was calculated using the CKD-EP I equation. As with all creatinine based estimates of kidney function, eGFR values calculated with the CKD-EPI equation are not accurate in patients wi th acute kidney failure, extremes of body mass or the acutely ill. [email or web address] eGFR 91 >=60 mL/min/1.73 m?? [facility] LABORATORY Comment: The eGFR was calculated using the CKD-EP I equation. As with all creatinine based estimates of kidney function, eGFR values calculated with the CKD-EPI equation are not accurate in patients wi th acute kidney failure, extremes of body mass or the acutely ill. [email or web address] Specimen Anatomical Collection Method Collection Time Receive d Time (Source) Location / / Volume Laterality Blood specimen 12/01/2019 3:55 AM 020 4:00 (specimen) EDT AM EDT Resulting Agency Comment Spec In Lab Gretchen Yoon MD CHEMISTRY ORDERABLES Performing Organization Address City/State/ZIP Code Phon e Number [address] (ABNORMAL) Hemogram (12/01/2019 3:55 AM EDT) Analysis Performed At Patho logist Time Signature WBC 11.0 (H) 4.0 - 9.5 [facility] LABORATORY RBC 3.46 (L) 4.58 - MELINA DOV 5.54 [facility] x10(6)/[facility] LABORATORY Hemoglobin 10.2 (L) 13.7 - [facility] 16.5 gm/dL [facility] LABORATORY Hematocrit 31.2 (L) 40.5 - [facility] 48.5 % [facility] LABORATORY MCV 90.2 82.9 - [facility] 93.1 [facility] LABORATORY MCH 29.5 27.5 - [facility] 32.1 pg [facility] LABORATORY MCHC 32.7 32.0 - MELINA DOV 35.7 gm/dL [facility] LABORATORY Platelets 98 (L) 145 - 357 [facility] x10(3)/[facility] LABORATORY RDWSD 47.9 (H) 36.0 - [facility] 45.0 [facility] LABORATORY RDWCV 14.6 (H) 11.4 - [facility] DOV 13.8 % [facility] LABORATORY MPV 12.3 7.6 - 12.9 [facility] nRBC % Auto 0.0 % [facility] LABORATORY nRBC Abs Auto 0.000 0.000 - [facility] 0.000 [facility] x10(3)/[facility] LABORATORY Specimen Anatomical Collection Method Collection Time Receive d Time (Source) Location / / Volume Laterality Blood specimen 12/01/2019 3:55 AM 020 4:00 (specimen) EDT AM EDT Resulting Agency Comment Spec In Lab Gretchen Yoon MD HEMATOLOGY ORDERABLES Performing Organization Address City/State/[place] [address] (ABNORMAL) BLOOD GAS 2 ARTERIAL (11/30/2019 10:39 PM EDT) Analysis Performed At Patho logist Time Signature pH Art 7.45 7.35 - [facility] 7.45 [facility] LABORATORY pCO2 Art 23 (L) 35 - 45 [facility] mmHg [facility] LABORATORY pO2 Art 76 (L) 85 - 104 [facility] LABORATORY HCO3 Art 15.3 (L) 20.0 - [facility] 26.0 [facility] mmol/L [facility] LABORATORY BE Art -8.7 (L) -3.0 - 3.0 [facility] mmol/L [facility] LABORATORY Hgb Blood Gas 11.7 (L) 13.7 - [facility] 16.5 gm/dL [facility] O2HB Art 94.2 94.0 - [facility] 97.0 % [facility] COHB Art 0.5 % [facility] [...] Whole Bld 120 65 - 199 mg/dL [facility] LABORATORY Comment: Diabetes: >=200 mg/dL plus symp toms. Lactate WB 0.8 0.5 - 2.2 mmol/L [facility] LABORATORY FIO2 Art 100 % [facility] LABORATORY PF Ratio Art 76 [facility] LABORATORY Specimen Anatomical Collection Method Collection Time Receive d Time (Source) Location / / Volume Laterality Blood specimen 11/30/2019 10:39 0 (specimen) PM EDT 10:39 PM EDT Gretchen Yoon MD CHEMISTRY ORDERABLES Performing Organization Address City/[facility]/[place] [address] EKG 12 Lead (11/30/2019 [...] (Bezet) Calculated P 12 degrees [facility] [place] Calculated R 19 degrees [facility] [place] Calculated T -47 degrees MUSE SYSTEM [place] INTERPRETATION Sinus rhythm with Premature supraventricular complexes [...] 2 /LPF [facility] LABORATORY Specimen (Source) Anatomical Collection Method Collection Time Re ceived Time Location / / Volume Laterality Urine specimen 11/30/2019 8:40 11/30/2019 obtained via PM EDT 10:51 PM EDT indwelling urinary catheter (specimen) Resulting Agency Comment Spec In Lab Rossy Winn MD URINE ORDERABLES Performing Organization Address City/State/[place] [address] (ABNORMAL) Urinalysis with reflex Culture (11/30/2019 8:40 PM EDT) Patholo gist Method Time Signature Glucose UA Negative Negative [facility] mg/dL [facility] LABORATORY Protein UA Negative Negative [facility] mg/dL [facility] LABORATORY Bilirubin UA Negative Negative [facility] mg/dL [facility] LABORATORY Comment: Clinical correlation required [...] [facility] Nitrite UA Negative Negative [facility] LABORATORY Leukocytes UA Trace (A) Negative [facility] LABORATORY Appearance UA Clear Clear [facility] LABORATORY Spec [place] UA 1.026 1.006 - 1.030 [facility] LABORATORY Color UA Yellow Yellow [facility] LABORATORY Culture Reflexed No [facility] LABORATORY Specimen (Source) Anatomical Collection Method Collection Time Re ceived Time Location / / Volume Laterality Urine specimen 11/30/2019 8:40 11/30/2019 obtained via PM EDT 10:51 PM EDT indwelling urinary catheter (specimen) Resulting Agency Comment Spec In Lab Gretchen Yoon MD URINE ORDERABLES Performing Organization Address City/State/[place] [address] (ABNORMAL) pro-Brain Natriuretic Peptide (11/30/2019 8:30 PM EDT) P athologist Signature ProBNP 2,802 (H) <=125 [facility] pg/mL [facility] LABORATORY Specimen Anatomical Collection Method Collection Time Receive d Time (Source) Location / / Volume Laterality Blood specimen Venous Draw / 11/30/2019 8:30 PM 2019 8:36 (specimen) Unknown EDT PM EDT Resulting Agency Comment Spec In Lab Rossy Winn MD CHEMISTRY ORDERABLES Performing Organization Address City/[facility]/[place] [address] (ABNORMAL) Troponin (11/30/2019 8:30 PM EDT) athologist Signature Troponin-T 5.04 (H) 0.00 - MELINA MONAE 0.00 ng/mL [facility] LABORATORY Comment: The 99th percentile for Troponin T is le ss than 0.01 ng/mL, any detectable cTnT concentration using this assay should be considered elevated. According to the third universal definit ion of myocardial infarction the following criteria with a clinical prese ntation consistent with acute myocardial ischemia meets the diagnosis for a myocardial infarction ([place]). Detection of a rise and/or fall of [...] additional sample may be indicated. Reference: Third Trappe Definition of Myocardial Infarction. Journal of the [place] [employer] 2012;60:1581-98 Specimen Anatomical Collection Method Collection Time Receive d Time (Source) Location / / Volume Laterality Blood specimen Venous Draw / 11/30/2019 8:30 PM 2019 8:36 (specimen) Unknown EDT PM EDT Resulting Agency Comment Spec In Lab Rossy Winn MD CHEMISTRY ORDERABLES Performing Organization Address City/[facility]/[place] [address] Magnesium (11/30/2019 8:30 PM EDT) athologist Signature Magnesium 0.79 0.69 - 1.07 [facility] mmol/L [facility] LABORATORY Specimen Anatomical Collection Method Collection Time Receive d Time (Source) Location / / Volume Laterality Blood specimen 11/30/2019 8:30 PM 020 8:35 (specimen) EDT PM EDT Resulting Agency Comment Spec In Lab Gretchen Yoon MD CHEMISTRY ORDERABLES Performing Organization Address City/State/[place] [address] [facility] LABORATORY Drive (ABNORMAL) Basic Metabolic Panel (non-fasting) (11/30/2019 8:30 PM EDT) athologist Signature Glucose Lvl 132 65 - 199 [facility] mg/dL [facility] LABORATORY Comment: Diabetes: >=200 mg/dL plus symp toms BUN 12 10 - 20 mg/dL [facility] LABORATORY Creatinine 0.94 0.80 - 1.50 mg/dL [facility] LABORATORY Sodium 136 135 - 145 mmol/L [facility] LABORATORY Potassium 3.9 3.5 - 5.0 mmol/L [facility] LABORATORY Comment: Please note: ??Patients with [...] Calcium 7.9 (L) 8.5 - 10.5 mg/dL [facility] LABORATORY Estimated GFR 80 >=60 mL/min/1.73 m?? [facility] LABORATORY Comment: The eGFR was calculated using the CKD-EP I equation. As with all creatinine based estimates of kidney function, eGFR values calculated with the CKD-EPI equation are not accurate in patients wi th acute kidney failure, extremes of body mass or the acutely ill. [email or web address] eGFR 93 >=60 mL/min/1.73 m?? [facility] LABORATORY Comment: The eGFR was calculated using the CKD-EP I equation. As with all creatinine based estimates of kidney function, eGFR values calculated with the CKD-EPI equation are not accurate in patients wi th acute kidney failure, extremes of body mass or the acutely ill. [email or web address] Specimen Anatomical Collection Method Collection Time Receive d Time (Source) Location / / Volume Laterality Blood specimen 11/30/2019 8:30 PM 020 8:35 (specimen) EDT PM EDT Resulting Agency Comment Spec In Lab Gretchen Yoon MD CHEMISTRY ORDERABLES Performing Organization Address [facility] Phon e [address] Blood culture (11/30/2019 8:30 PM EDT) Patholo gist Method Time Signature Blood Culture No growth MELINA WHITTENCOCK at [address] [facility] Specimen Anatomical Collection Method Collection Time Receive d Time (Source) Location / / Volume Laterality Blood specimen 11/30/2019 8:30 PM 020 9:40 (specimen) EDT PM EDT Comment: L HAND Resulting Agency Comment Spec In Lab Gretchen Yoon MD MICROBIOLOGY - BLOOD ORDERAB LES Performing Organization Address City/[facility] Phon e Number [address] Blood culture (11/30/2019 8:30 PM EDT) Patholo gist Method Time Signature Blood Culture No growth MELINA MARSHDOV at [address] [facility] Specimen Anatomical Collection Method Collection Time Receive d Time (Source) Location / / Volume Laterality Blood specimen 11/30/2019 8:30 PM 020 9:40 (specimen) EDT PM EDT Comment: R HAND Resulting Agency Comment Spec In Lab Gretchen Yoon MD MICROBIOLOGY - BLOOD ORDERAB LES Performing Organization Address [facility] [place] [address] XR Chest One View [...] Time Signature pH Art 7.45 7.35 - [facility] 7.45 [facility] LABORATORY pCO2 Art 27 (L) 35 - 45 [facility] mmHg [facility] LABORATORY pO2 Art 68 (L) 85 - 104 [facility] mmHg [facility] LABORATORY HCO3 Art 18.2 (L) 20.0 - [facility] 26.0 [facility] mmol/L [facility] LABORATORY BE Art -5.9 (L) -3.0 - 3.0 [facility] mmol/L [facility] LABORATORY Hgb Blood Gas 12.4 (L) 13.7 - [facility] 16.5 gm/dL [facility] LABORATORY O2HB Art 93.1 (L) 94.0 - [facility] 97.0 % [facility] LABORATORY COHB Art 0.8 % [facility] [...] Whole Bld 121 65 - 199 mg/dL [facility] LABORATORY Comment: Diabetes: >=200 mg/dL [...] Organization Address City/State/[place] [address] Angiogram [place] (11/30/2019 4:36 PM EDT) Anatomical [...] Electronically signed by: Angel Luis Barboza MD, [facility] ([phone]), at 11/30/2019 5:04 PM Narrative 11/30/2019 5:04 PM EDT EXAMINATION: CT HEAD WO CONTRAST (GENERIC), CT ANGIOGRAM [place] CLINICAL HISTORY: Headache, intracranial hemorrhage suspected F/U on known ICH - assessing for propaga tion TECHNIQUE: CT head performed without intravenous co ntrast administration. CT angiogram [place] 65 cc Omnipaque 350 administered [...] HEAD WO CONTRAST (GENERI C), CT ANGIOGRAM [place] CLINICAL HISTORY: Headache, intracranial hemorrhage suspected F/U on known ICH - assessing for propaga tion TECHNIQUE: CT head performed without intravenous co ntrast administration. CT angiogram [place] 65 cc Omnipaque 350 administered [...] CT HEAD WO CONTRAST (GENERIC), CT ANGIOGRAM [place] CLINICAL HISTORY: Headache, intracranial hemorrhage suspected F/U on known ICH - assessing for propaga tion TECHNIQUE: CT head performed without intravenous co ntrast administration. CT angiogram [place] 65 cc Omnipaque 350 administered [...] HEAD WO CONTRAST (GENERI C), CT ANGIOGRAM [place] CLINICAL HISTORY: Headache, intracranial hemorrhage suspected F/U on known ICH - assessing for propaga tion TECHNIQUE: CT head performed without intravenous co ntrast administration. CT angiogram [place] 65 cc Omnipaque 350 administered [...] report, please contact th e number below. Electronically signed by: Angel Luis Barboza MD, [facility] ([phone]), at 11/30/2019 5:04 PM Gretchen Yoon MD [...] 453 ms MUSE SYSTEM (Bezet) Calculated P [place] 52 degrees MUSE SYSTEM Calculated R [place] 5 degrees MUSE SYSTEM Calculated T [place] -60 degrees MUSE SYSTEM INTERPRETATION Sinus rhythm [...] H ? (Age): 1945(74y) Med Rec#: ? [id number] ?Sex: ?M ? Site Loc: ? [facility] ?Ht / Wt: ??178(cm)/64(kg) Pt. Loc: ?CCU ? BSA: ?1.8 Study Date: ?? 11/30/2019 ?Pt. Type: Inpatient Tape: ? Referring: GILMER Reading: Tello Mejia ([id number]) Lightning Rod Erector: Eve Lolita Diagnosis: *ST elevation (STEMI) myocardial [...] Vmax ?0.58 ? m/sec ? MV deceleration sazw874.05 ? m sec ? MV A-wave Vmax [...] ? Mid-Inferior ?Akinetic ? Mid-Inferoseptal ?Normal ? [place]-Septal ? Normal ? [place]-Anterior ? Normal ? [place]-Lateral ?Normal ? [place]-Inferior ? Hypokinetic ? [place]-Tip ?Normal ? This report has been electronically sign ed by: _ Tello Mejia MD ? 11/30/2019 12: 45:27 Images reviewed and interpretation [facility] Cardiac Ultrasound Laboratory Procedure Note Tello Mejia MD - 11/30/2019Formatti ng of this note might be different from the original. Procedure: Transthoracic Echocardiogram Patient: RITA ACOSTA(Age): [age]y) Med Rec#: [id number] Sex: M Site Loc: [facility] Ht / Wt: 178(cm)/64(kg) Pt. Loc: CCU BSA: 1.8 Study Date: 11/30/2019 Pt. Type: Inpatie nt Tape: Referring: GILMER Reading: Tello Mejia ([id number]) Lightning Rod Erector: Lolita Prado Diagnosis: *ST elevation (STEMI) myocardial [...] MV E-wave Vmax 0.58 m/sec MV deceleration pprn823.05 msec MV A-wave Vmax 0.74 m/sec MV [...] Hypokinetic Mid-Posterolateral Hypokinetic Mid-Inferior Akinetic Mid-Inferoseptal Normal [place]-Septal Normal [place]-Anterior Normal [place]-Lateral Normal [place]-Inferior Hypokinetic [place]-Tip Normal This report has been electronically sign ed by: _ Tello Mejia MD 11/30/2019 12:45:27 Images reviewed and interpretation verif ied [facility] Cardiac Ultrasound Laboratory Gretchen Yoon MD [...] Electronically signed by: Angel Luis Barboza MD, [facility] ([phone]), at 11/30/2019 12:04 PM Narrative 11/30/2019 12:04 [...] athologist Signature Magnesium 0.88 0.69 - 1.07 [facility] mmol/L [facility] LABORATORY Specimen Anatomical Collection Method Collection Time Receive d Time (Source) Location / / Volume Laterality Blood specimen Venous Draw / 11/30/2019 8:30 AM 2019 8:37 (specimen) Unknown EDT AM EDT Resulting Agency Comment Spec In Lab Rossy Winn MD CHEMISTRY ORDERABLES Performing Organization Address City/State/[place] [address] (ABNORMAL) CK (11/30/2019 8:30 AM EDT) athologist Signature CK, Total 1,645 (H) 0 - 200 [facility] unit/[facility] LABORATORY Specimen Anatomical Collection Method Collection Time Receive d Time (Source) Location / / Volume Laterality Blood specimen 11/30/2019 8:30 AM 020 8:32 (specimen) EDT AM EDT Resulting Agency Comment Spec In Lab Gretchen Yoon MD CHEMISTRY ORDERABLES Performing Organization Address City/[facility]/[place] [address] (ABNORMAL) Troponin (11/30/2019 8:30 AM EDT) athologist Signature Troponin-T 8.04 (H) 0.00 - MELINA MONAE 0.00 ng/mL [facility] LABORATORY Comment: result rechecked-rancho The 99th percentile for Troponin T is le ss than 0.01 ng/mL, any detectable cTnT concentration using this assay should be considered elevated. According to the third universal definit ion of myocardial infarction the following criteria with a clinical prese ntation consistent with acute myocardial ischemia meets the diagnosis for a myocardial infarction ([place]). Detection of a rise and/or fall of [...] additional sample may be indicated. Reference: Third Trappe Definition of Myocardial Infarction. Journal of the [place] [employer] 2012;60:1581-98 Specimen Anatomical Collection Method Collection Time Receive d Time (Source) Location / / Volume Laterality Blood specimen 11/30/2019 8:30 AM 020 8:32 (specimen) EDT AM EDT Resulting Agency Comment Spec In Lab Gretchen Yoon MD CHEMISTRY ORDERABLES Performing Organization Address City/State/ZIP Code Phon [place] [address] EKG 12 Lead (11/30/2019 7:57 AM EDT) Component Value Ref Range Test Analysis Performed Pathologis t Method Time At Signature Ventricular rate 64 BPM MUSE SYSTEM Atrial Rate 64 BPM MUSE SYSTEM P-R Interval 132 ms MUSE SYSTEM QRS Duration 78 ms MUSE SYSTEM Q-T Interval 420 ms MUSE SYSTEM QTC Calculated 433 ms MUSE SYSTEM (Bezet) Calculated P [place] 28 degrees MUSE SYSTEM Calculated R [place] 7 degrees MUSE SYSTEM Calculated T [place] -33 degrees MUSE SYSTEM INTERPRETATION Sinus rhythm [...] Signature Glucose 147 (H) 65 - 99 [facility] Fasting mg/dL [facility] LABORATORY Comment: ?Fasting* Glucose Interpretive [...] of Diabetes Mellitus, Position Statement from the [place] [employer]. ??Diabete s Care, Volume 33, Supplement 1, Jul 2009 BUN 13 10 - 20 mg/dL [facility] LABORATORY Creatinine 0.90 0.80 - 1.50 mg/dL [facility] LABORATORY Sodium 135 135 - 145 mmol/L [facility] LABOR[facility] Potassium 3.9 3.5 - 5.0 mmol/L [facility] Comment: Please note: ??Patients with [...] Calcium 7.5 (L) 8.5 - 10.5 mg/dL [facility] LAB[facility] Estimated GFR 84 >=60 mL/min/1.73 m?? [facility] LABORATORY Comment: The eGFR was calculated using the CKD-EP I equation. As with all creatinine based estimates of kidney function, eGFR values calculated with the CKD-EPI equation are not accurate in patients wi th acute kidney failure, extremes of body mass or the acutely ill. [email or web address]SAnkf eGFR 98 >=60 mL/min/1.73 m?? [facility] LABORATORY Comment: The eGFR was calculated using the CKD-EP I equation. As with all creatinine based estimates of kidney function, eGFR values calculated with the CKD-EPI equation are not accurate in patients wi th acute kidney failure, extremes of body mass or the acutely ill. [email or web address]SAnkf Specimen Anatomical Collection Method Collection Time Receive d Time (Source) Location / / Volume Laterality Blood specimen 11/30/2019 2:15 AM 020 2:29 (specimen) EDT AM EDT Resulting Agency Comment Spec In Lab Gretchen Yoon MD CHEMISTRY ORDERABLES Performing Organization Address City/State/[place] [address] (ABNORMAL) Hemogram (11/30/2019 2:15 AM EDT) Analysis Performed At Patho logist Time Signature WBC 11.2 (H) 4.0 - 9.5 [facility] x10(3)/[facility] LABORATORY RBC 3.83 (L) 4.58 - [facility] 5.54 [facility] x10(6)/[facility] LABORATORY Hemoglobin 11.4 (L) 13.7 - [facility] 16.5 gm/dL [facility] LABORATORY Hematocrit 35.2 (L) 40.5 - [facility] 48.5 % [facility] LABORATORY MCV 91.9 82.9 - MELINA MARSHDOV 93.1 [facility] LABORATORY MCH 29.8 27.5 - MELINA WHITTENCOCK 32.1 pg [facility] LABORATORY MCHC 32.4 32.0 - MELINA WHITTENCOCK 35.7 gm/dL [facility] LABORATORY Platelets 122 (L) 145 - 357 [facility] x[facility](3)/[facility] LABORATORY RDWSD 49.8 (H) 36.0 - MELINA WHITTENCOCK 45.0 [facility] LABORATORY RDWCV 14.8 (H) 11.4 - MELINA WHITTENCOCK 13.8 % [facility] LABORATORY MPV 12.1 7.6 - 12.9 MELINA MONAE [facility] LABORATORY nRBC % Auto 0.0 % [facility] LABORATORY nRBC Abs Auto 0.000 0.000 - MELINA WHITTENCOCK 0.000 [facility] x10(3)/[facility] LABORATORY Specimen Anatomical Collection Method Collection Time Receive d Time (Source) Location / / Volume Laterality Blood specimen 11/30/2019 2:15 AM 020 2:29 (specimen) EDT AM EDT Resulting Agency Comment Spec In Lab Gretchen Yoon MD HEMATOLOGY ORDERABLES Performing Organization Address City/State/ZIP Code Phon e Number [address] (ABNORMAL) CK (11/30/2019 2:15 AM EDT) athologist [facility] CK, Total 1,969 (H) 0 - 200 MELINA DOV unit/L [facility] LABORATORY Specimen Anatomical Collection Method Collection Time Receive d Time (Source) Location / / Volume Laterality Blood specimen 11/30/2019 2:15 AM 020 2:29 (specimen) EDT AM EDT Resulting Agency Comment Spec In Lab Gretchen Yoon MD CHEMISTRY ORDERABLES Performing Organization Address City/[facility]/ZIP Code Phon e Number [address] (ABNORMAL) Troponin (11/30/2019 2:15 AM EDT) athologist [facility] Troponin-T 11.73 (H) 0.00 - MELINA MONAE 0.00 ng/mL [facility] LABORATORY Comment: result rechecked-slw The 99th percentile for Troponin T is le ss than 0.01 ng/mL, any detectable cTnT concentration using this assay should be considered elevated. According to the third universal definit ion of myocardial infarction the following criteria with a clinical prese ntation consistent with acute myocardial ischemia meets the diagnosis for a myocardial infarction ([place]). Detection of a rise and/or fall of [...] additional sample may be indicated. Reference: Third Trappe Definition of Myocardial Infarction. Journal of the [place] [employer] 2012;60:1581-98 result rechecked- The 99th percentile for Troponin T is le ss than 0.01 ng/mL, any detectable cTnT concentration using this assay should be considered elevated. According to the third universal definit ion of myocardial infarction the following criteria with a clinical prese ntation consistent with acute myocardial ischemia meets the diagnosis for a myocardial infarction ([place]). Detection of a rise and/or fall of [...] additional sample may be indicated. Reference: Third [place]rap[place] Definition of Myocardial Infarction. Journal of the [place] [employer] 2012;60:1581-98 Corrected from 11.73 ng/ml [HI] on 11/29 3:11:51 EDT by Debi Hawley Specimen Anatomical Collection Method Collection Time Receive d Time (Source) Location / / Volume Laterality Blood specimen 11/30/2019 2:15 AM 020 2:29 (specimen) EDT AM EDT Resulting Agency Comment Spec In Lab Gretchen Yoon MD CHEMISTRY ORDERABLES Performing Organization Address City/[facility] Phon e Number [address] LDL Cholesterol, Direct (11/30/2019 2:15 AM EDT) P athologist Signature LDL Chol 156 mg/dL [facility] LABORATORY Comment: Lowest Risk: <100 mg/dL Lower Risk: 100-129 mg/dL Borderline High Risk: 130-159 mg/dL High Risk: 160-189 mg/dL Very High Risk: >wt=942 mg/dL Specimen Anatomical Collection Method Collection Time Receive d Time (Source) Location / / Volume Laterality Blood specimen 11/30/2019 2:15 AM 020 2:29 (specimen) EDT AM EDT Resulting Agency Comment Spec In Lab Gretchen Yoon MD CHEMISTRY ORDERABLES Performing Organization Address City/[facility] [place] [address] (ABNORMAL) Hemoglobin A1c (11/30/2019 2:15 AM EDT) Analysis Performed At Patho logist Time Signature Hemoglobin A1C 6.3 (H) 4.3 - 5.6 [facility] LABORATORY Comment: Reference Range: 4.3 - [...] Mellitus, Diabetes Care 2013; 36: Suppl. 1, G07-42 Est Avg Gluc See note mg/dL [facility] LABORATORY Comment: Estimated Average [...] into estimated average glucose values. ??Diabetes Care 2008:31(8):1905-3910. Specimen Anatomical Collection Method Collection Time Receive d Time (Source) Location / / Volume Laterality Blood specimen 11/30/2019 2:15 AM 020 2:29 (specimen) EDT AM EDT Resulting Agency Comment Spec In Lab Gretchen Yoon MD CHEMISTRY ORDERABLES Performing Organization Address City/State/[place] [address] Lipid Panel (Reflex Direct LDL) (11/30/2019 2:15 AM EDT) athologist Signature Chol, Total 195 mg/dL [facility] LABORATORY Comment: Lower Risk: <200 mg/dL Average Risk: 200-239 mg/dL Higher Risk: >tk=001 mg/dL Triglycerides 93 mg/dL [facility] LABORATORY Comment: Average Risk/Lower Risk: <150 mg/dL Borderline High Risk: 150-199 mg/dL High Risk: 200-499 mg/dL Very High Risk: >pw=110 mg/dL HDL 32 mg/dL [facility] LABORATORY Comment: Males: ?? Higher Risk: <40 mg/dL Females: ?? HIgher Risk: <50 mg/dL LDL Cholesterol 144 mg/dL [facility] LABORATORY Comment: Lowest Risk: <100 mg/dL Lower Risk: 100-129 mg/dL Borderline High Risk: 130-159 mg/dL High Risk: 160-189 mg/dL Very High Risk: >pt=574 mg/dL Chol/HDL Ratio 6.1 ratio [facility] LABORATORY Lipid Interpretation See Note [facility] LABORATORY Comment: Lipid management should be guided by a p atient? s ASCVD risk, goals and preferences. ACC/AHA Guidelines recommend high intens ity statin if clinical ASCVD or LDL greater than or equal to 190 mg/dL. http://RevealurFantasyBook.com/WPI-KAX-Mjdzlkbbp Adults aged 40-75 with LDL 70-189 mg/dL should have their 10 year ASCVD risk estimated with the ACC/AHA ASCVD risk es timator http://tools.acc.org/LCDDW-Jljt-Mijpdbcf r/ Statin should be discussed if risk [...] Organization Address City/State/ZIP Code Phon e Number [address] (ABNORMAL) CK (11/29/2019 6:35 PM EDT) athologist Signature CK, Total 2,780 (H) 0 - 200 [facility] unit/L [facility] LABORATORY Specimen Anatomical Collection Method Collection Time Receive d Time (Source) Location / / Volume Laterality Blood specimen 11/29/2019 6:35 PM 020 6:53 (specimen) EDT PM EDT Resulting Agency Comment Spec In Lab Gretchen Yoon MD CHEMISTRY ORDERABLES Performing Organization Address City/State/ZIP Code Phon e Number [address] (ABNORMAL) Troponin (11/29/2019 6:35 PM EDT) athologist Signature Troponin-T 17.60 (H) 0.00 - [facility] 0.00 ng/mL [facility] LABORATORY Comment: result rechecked-az The 99th percentile for Troponin T is le ss than 0.01 ng/mL, any detectable cTnT concentration using this assay should be considered elevated. According to the third universal definit ion of myocardial infarction the following criteria with a clinical prese ntation consistent with acute myocardial ischemia meets the diagnosis for a myocardial infarction ([place]). Detection of a rise and/or fall of [...] additional sample may be indicated. Reference: Third Trappe Definition of Myocardial Infarction. Journal of the [place] [employer] 2012;60:1581-98 Specimen Anatomical Collection Method Collection Time Receive d Time (Source) Location / / Volume Laterality Blood specimen 11/29/2019 6:35 PM 020 6:53 (specimen) EDT PM EDT Resulting Agency Comment Spec In Lab Gretchen Yoon MD CHEMISTRY ORDERABLES Performing Organization Address City/State/ZIP Code Phon e Number [place] [id number] EKG 12 Lead (11/29/2019 3:58 PM EDT) [facility] gist Method Time Signature Ventricular rate 73 BPM MUSE SYSTEM Atrial Rate 73 BPM MUSE SYSTEM P-R Interval 152 ms MUSE SYSTEM QRS Duration 84 ms MUSE SYSTEM Q-T Interval 404 ms MUSE SYSTEM QTC Calculated 445 ms MUSE SYSTEM (Bezet) Calculated P [place] 50 degrees MUSE SYSTEM Calculated R [place] -4 degrees MUSE SYSTEM Calculated T [place] 19 degrees MUSE SYSTEM INTERPRETATION Sinus rhythm [...] Concepcion MD ECG ORDERABLES Performing Organization Address City/[facility]/ZIP Code Phon e Number MUSE SYSTEM XR [...] below. ? Electronically signed by: Devin Solis [facility] ([phone]), at 11/29/2019 5:06 PM --------ORIGINAL REPORT -------- EXAMINATION: XR CHEST ONE VIEW CLINICAL HISTORY: stemi (as entered by o [facility] provider in the order requisition) [...] lung apex is excluded from the imaged [id number]. IMPRESSION: 1. ??New right internal jugular pulmonar [...] below. ? Electronically signed by: Devin Solis [facility] ([phone]), at 11/29/2019 4:36 PM Impressions 11/29/2019 4:36 [...] lung apex is excluded from the imaged [id number]. Procedure Note Estefani Harris MD - 11/29/2019Formattin [...] lung apex is excluded from the imaged whuxl-xi-[id number]. IMPRESSION 1. New right internal jugular pulmonary [...] number below. Electronically signed by: Devin Solis [facility] ([phone]), at 11/29/2019 4:36 PM Juventino Concepcion MD IMG DX ORDERABLES (ABNORMAL) Differential, Automated (11/29/2019 2:32 PM EDT) [facility] Method Time Signature Neutrophils % 83.8 % [facility] LABORATORY Neutr Abs (ANC) 12.12 (H) 1.70 - [facility] 6.10 [facility] x10(3)/[facility] LABORATORY Lymphocytes % 9.1 % [facility] LABORATORY Lymphocytes Abs 1.3 0.9 - 3.2 [facility] x10(3)/[facility] LABORATORY Monocytes % 6.2 % [facility] LABORATORY Monocyte Abs 0.9 0.3 - 0.9 [facility] x10(3)/[facility] LABORATORY Eosinophils % 0.0 % [facility] LABORATORY Eosinophils Abs 0.0 0.0 - 0.4 [facility] x10(3)/[facility] LABORATORY Basophils % 0.3 % [facility] LABORATORY Basophils Abs 0.0 0.0 - 0.1 [facility] x10(3)/[facility] LABORATORY Immature Gran % 0.60 [...] Gran Abs 0.08 (H) 0.00 - 0.04 x10(3)/[facility] LABORATORY Specimen Anatomical Collection Method Collection Time Receive d Time (Source) Location / / Volume Laterality Blood specimen 11/29/2019 2:32 PM 020 2:55 (specimen) EDT PM EDT Resulting Agency Comment Spec In Lab Darrell Glasgow MD HEMATOLOGY ORDERABLES Performing Organization Address City/State/[place] [address] (ABNORMAL) Hemogram (11/29/2019 2:32 PM EDT) Analysis Performed At Patho logist Time Signature WBC 14.5 (H) 4.0 - 9.5 [facility] x10(3)/[facility] LABORATORY RBC 4.53 (L) 4.58 - [facility] 5.54 [facility] x10(6)/[facility] LABORATORY Hemoglobin 13.1 (L) 13.7 - [facility] 16.5 gm/dL [facility] LABORATORY Hematocrit 40.8 40.5 - [facility] 48.[facility] % [facility] LABORATORY MCV 90.1 82.9 - [facility] 93.1 [facility] LABORATORY MCH 28.9 27.5 - [facility] DOV 32.1 pg [facility] LABORATORY MCHC 32.1 32.0 - [facility] 35.7 gm/dL [facility] LABORATORY Platelets 184 145 - 357 [facility] x10(3)/[facility] LABORATORY RDWSD 47.8 (H) 36.0 - [facility] DOV 45.0 [facility] LABORATORY RDWCV 14.5 (H) 11.4 - [facility] DOV 13.8 % [facility] LABORATORY MPV 11.9 7.6 - 12.9 [facility] LABORATORY nRBC % Auto 0.0 % [facility] LABORATORY nRBC Abs Auto 0.000 0.000 - MELINA WHITTENCOCK 0.000 [facility] x10(3)/[facility] LABORATORY Specimen Anatomical Collection Method Collection Time Receive d Time (Source) Location / / Volume Laterality Blood specimen 11/29/2019 2:32 PM 020 2:55 (specimen) EDT PM EDT Resulting Agency Comment Spec In Lab Darrell Glasgow MD HEMATOLOGY ORDERABLES Performing Organization Address City/[facility]/ZIP Code Phon e Number [address] (ABNORMAL) CK (11/29/2019 2:32 PM EDT) athologist Signature CK, Total 3,282 (H) 0 - 200 [facility] unit/L [facility] LABORATORY Specimen Anatomical Collection Method Collection Time Receive d Time (Source) Location / / Volume Laterality Blood specimen 11/29/2019 2:32 PM 020 2:32 (specimen) EDT PM EDT Resulting Agency Comment Spec In Lab Gretchen Yoon MD CHEMISTRY ORDERABLES Performing Organization Address City/[facility]/[place] [address] (ABNORMAL) Troponin (11/29/2019 2:32 PM EDT) athologist Signature Troponin-T 20.33 (H) 0.00 - MELINA MONAE 0.00 ng/mL [facility] LABORATORY Comment: The 99th percentile for Troponin T is le ss than 0.01 ng/mL, any detectable cTnT concentration using this assay should be considered elevated. According to the third universal definit ion of myocardial infarction the following criteria with a clinical prese ntation consistent with acute myocardial ischemia meets the diagnosis for a myocardial infarction ([place]). Detection of a rise and/or fall of [...] additional sample may be indicated. Reference: Third [place]rap[place] Definition of Myocardial Infarction. Journal of the [place] [employer] 2012;60:1581-98 Specimen Anatomical Collection Method Collection Time Receive d Time (Source) Location / / Volume Laterality Blood specimen 11/29/2019 2:32 PM 020 2:32 (specimen) EDT PM EDT Resulting Agency Comment Spec In Lab Gretchen Yoon MD CHEMISTRY ORDERABLES Performing Organization Address [facility] [place] [address] (ABNORMAL) APTT (11/29/2019 2:32 PM EDT) P athologist Signature PTT 114 25 - 37 [facility] (Critical) [facility] LABORATORY Comment: Critical Result called by ?? [...] [facility] [address] (ABNORMAL) Prothrombin Time (11/29/2019 2:32 PM EDT) P athologist Signature PT 13.5 (H) 9.4 - 12.5 [facility] LABORATORY INR 1.2 [facility] LABORATORY [...] [facility]/ZIP Code Phon e Number [address] (ABNORMAL) Hepatic Function Panel (11/29/2019 2:32 PM EDT) P athologist Signature Total Protein 6.3 6.1 - 8.0 [facility] DOV gm/dL [facility] LABORATORY Albumin 3.6 3.2 - 5.2 [facility] DOV gm/dL [facility] LABORATORY AST 257 (H) 0 - 39 [facility] DOV unit/L [facility] LABORATORY ALT 50 0 - 55 [facility] DOV unit/L [facility] LABORATORY Alk Phos 84 40 - 130 [facility] DOV unit/L [facility] LABORATORY Total 0.3 0.2 - 1.3 SEC Watch Bilirubin mg/dL [facility] LABORATORY Bili, Direct 0.1 0.0 - 0.3 [facility] DOV mg/dL [facility] LABORATORY Specimen Anatomical Collection Method Collection Time Receive d Time (Source) Location / / Volume Laterality Blood specimen 11/29/2019 2:32 PM 020 2:32 (specimen) EDT PM EDT Resulting Agency Comment Spec In Lab Gretchen Yoon MD CHEMISTRY ORDERABLES Performing Organization Address City/[facility]/[place] [address] (ABNORMAL) pro-Brain Natriuretic Peptide [...] Organization Address City/State/ZIP Code Phon e Number [address] Magnesium (11/29/2019 2:32 PM EDT) athologist Signature Magnesium 0.76 0.69 - 1.07 [facility] mmol/L [facility] LABORATORY Specimen Anatomical Collection Method Collection Time Receive d Time (Source) Location / / Volume Laterality Blood specimen 11/29/2019 2:32 PM 020 2:32 (specimen) EDT PM EDT Resulting Agency Comment Spec In Lab Gretchen Yoon MD CHEMISTRY ORDERABLES Performing Organization Address City/[facility]/[place] [address] (ABNORMAL) Basic Metabolic Panel (non-fasting) (11/29/2019 2:32 PM EDT) athologist Signature Glucose Lvl 149 65 - 199 [facility] mg/dL [facility] LABORATORY Comment: Diabetes: >=200 mg/dL plus symp toms BUN 16 10 - 20 mg/dL [facility] LABORATORY Creatinine 0.94 0.80 - 1.50 mg/dL [facility] LABORATORY Sodium 135 135 - 145 mmol/L [facility]OR[facility] Potassium 4.5 3.5 - 5.0 mmol/L [facility] LAB[facility] Comment: Please note: ??Patients with [...] Calcium 8.0 (L) 8.5 - 10.5 mg/dL [facility] LAB[facility] Estimated GFR 80 >=60 mL/min/1.73 m?? [facility] LABORATORY Comment: The eGFR was calculated using the CKD-EP I equation. As with all creatinine based estimates of kidney function, eGFR values calculated with the CKD-EPI equation are not accurate in patients wi th acute kidney failure, extremes of body mass or the acutely ill. [email or web address]Ankf eGFR 93 >=60 mL/min/1.73 m?? [facility] LABORATORY Comment: The eGFR was calculated using the CKD-EP I equation. As with all creatinine based estimates of kidney function, eGFR values calculated with the CKD-EPI equation are not accurate in patients wi th acute kidney failure, extremes of body mass or the acutely ill. [email or web address]SAnkf Specimen Anatomical Collection Method Collection Time Receive d Time (Source) Location / / Volume Laterality Blood specimen 11/29/2019 2:32 PM 020 2:32 (specimen) EDT PM EDT Resulting Agency Comment Spec In Lab Gretchen Yoon MD CHEMISTRY ORDERABLES Performing Organization Address City/State/[place] [address] EKG 12 Lead (11/29/2019 11:38 AM EDT) [facility] gist Method Time Signature Ventricular rate 60 BPM MUSE SYSTEM Atrial Rate 60 BPM MUSE SYSTEM P-R Interval 140 ms MUSE SYSTEM QRS Duration 86 ms MUSE SYSTEM Q-T Interval 474 ms MUSE SYSTEM QTC Calculated 474 ms MUSE SYSTEM (Bezet) Calculated P [place] 48 degrees MUSE SYSTEM Calculated R [place] 14 degrees MUSE SYSTEM Calculated T [place] 58 degrees MUSE SYSTEM INTERPRETATION Normal sinus [...] Laterality Volume Narrative 11/30/2019 1:09 PM EDT ?[facility] ? Cardiac Cathete rization/Intervention Report ? Patient Name: Angel Luis Salinas. ? Procedure Date: 11/29/2019 ? A #: [id number] ? Primary Physician: Gretchen Yoon ? Case #: [id number] ? File Name: [id number] ? Catheterization Order Number: [id number] ? [facility] ? Final Report [place], [place] ? Patient Name: ? Angel Luis Salinas ? ID#: ?[id number] ? : ?1945 ? Procedure Date: ? November 29, 2019 ? Case #: ? [id number] ? Room: ? 5 ? Case Physician: ? Gretchen Yoon , M.D. ?Start: ?09:11 ?Fellow: ? Aidan Thompson on, M.D. ?Admission: ??11/29/2019 ? Discharge: ??12/08/2019 ? [...] procedure was Emergent. The indication for ?the cath lab technologist visit is ACS less than or equal [...] dose administered prior to arrival in the cath lab technologist. ?Recommended anti-platelet/anti- thrombotic regimen: ?Continue aspirin 81 mg daily fo r indefinitely. ?Continue clopidogrel 75 mg marco a y for 12 months then stop. ?These recommendations are made at the time of the intervention. Patient ?and provider preferences or a c hanging clinical situation may require ?modification of this regimen. C onsult [facility] Interventional Cardiology for ?questions. [...] note might be different from the original. [facility] Cardiac Catheterization/Intervention Re port Patient Name: Angel Luis Salinas Procedure Date: 11/29/2019 A #: [id number] Primary Physician: Gretchen Yoon Case #: [id number] File Name: [id number] Catheterization Order Number: [id number] [facility] Final Report [place], [place] Patient Name: Angel Luis Salinas ID#: [id number] : 1945 Procedure Date: November 29, [...] was designated as ASA Class IV. The [place] clinical frailty scale is 4: Vulnerable. Diagnostic Tests: Electrocardiography: EKG was assessed by ECG. EKG was Abnorm al. EKG showed ST Deviation >= 0.5 mm. Medications Prior to Procedure: Aspirin. Indications for Diagnostic Cath: The priority of the diagnostic procedur e was Emergent. The indication for the cath lab technologist visit is ACS less than or equal [...] this intervention was 10%. The final TI TX flow was 2. Distal 90% Thrombectomy and [...] this intervention was 10%. The final TI TX flow was 2. Vascular Access: Vascular Access [...] administered prior t o arrival in the cath lab technologist. Recommended anti-platelet/anti-thrombot ic regimen: Continue aspirin 81 [...] insertion-austin ry, ABG and embolic protection/thrombectomy-coronary. Gretchen N Young, M.D. Electronically Signed by: Gretchen lockett M.D. Report Finalized: 11/30/2019 13:04 Report Last Ammended: 01/01/2020 16:32 Gretchen Yoon MD CARDIAC CATH ORDERABLES (ABNORMAL) Point of Care Blood Gas Historical (11/29/2019 9:17 AM EDT) [facility] gist Method Time Signature POC pH 7.33 (L) 7.35 - [facility] 7.45 [facility] LABORATORY POC PCO2 33 (L) 35 - 45 [facility] mmHg [facility] LABORATORY POC PO2 56 (L) 85 - 104 [facility] LABORATORY POC Base Excess -8.0 (L) -3.0 - 3.0 [facility] K mmol/L [facility] LABORATORY POC HCO3 17.4 (L) 20.0 - [facility] 26.0 [facility] POC Sodium 137 135 - 145 [facility] mmol/L [facility] POC Potassium 3.6 3.5 - 5.0 [facility] mmol/L [facility] LABORATORY POC Ionized Ca 1.15 1.15 - [facility] 1.33 [facility] LAB[facility] POC Hematocrit 37.0 (L) 40.0 - [facility] 51.0 % [facility] LABORATORY POC Calc Hgb 12.6 (L) 13.7 - [facility] 17.5 gm/dL [facility] LABORATORY Comment: The calculation of hemoglobin f rom hematocrit assumes a normal MCHC. POC Bgas Loc CC LAB [facility] LABORATORY Specimen Anatomical Collection Method Collection Time Receive d Time (Source) Location / / Volume Laterality Blood specimen 11/29/2019 9:17 AM 020 7:35 (specimen) EDT AM EDT Gretchen Yoon MD CHEMISTRY ORDERABLES Performing Organization Address City/State/[place] [address] EKG 12 Lead (11/29/2019 9:01 AM EDT) Component Value Ref Range Test Analysis Performed Pathologis t Method Time At Signature Ventricular rate 80 BPM MUSE SYSTEM Atrial Rate 79 BPM MUSE SYSTEM QRS Duration 94 ms MUSE SYSTEM Q-T Interval 436 ms MUSE SYSTEM QTC Calculated 502 ms MUSE SYSTEM (Bezet) Calculated R [place] 54 degrees MUSE SYSTEM Calculated T [place] 80 degrees MUSE SYSTEM INTERPRETATION Normal sinus rhythm MUSE SYSTEM Inferior infarct , possibly acute Prolonged QT * ACUTE TX ?? Consider right ventricular involvement in acute [...] on 12/08/19 at 0930, Until Discontinued, Anticoagulant, Routine, Restricted [...] PRN, Starting on Sun11/30/19 at 2016, Until Sun12/08/19 at 1811, hypokalemia, [...] PRN, Starting on Sun11/30/19 at 2016, Until Sun12/08/19 at 1811, hypokalemia, [...] RN) 150 mg, Intravenous, ONCE, 1 dose, [place] at 1315, Warning Vesicant/Irritant Medication , Routine [...] ONCE, 1 dose, 12/06/19 at 0515, Ad motor block mechanic over 120 Minutes magnesium sulfate 2 g [...] 2 TIMES DAILY, First dose o n 6/1/20 at 0400, Until Discontinued, Verify nicotine 14 [...] Bentley RN) 0-8,000 Units, Intravenous, [facility], Starting 12/06/19 at 0926, Until 12/08/19 [...] RN) 0230 (See Alternative - Provider: Shana Ventura, NIURKA)1354 (See Alternative - Provider: Amaya Anderson, NIURKA) 40 mEq, Oral, EVERY 4 HOURS PRN, [...] Oral, EVERY 4 HOURS PRN, Startin g [place] 11/30/19 at 2016, Until Sun12/08/19 at 1811, hypokalemia
Administer for serum potassium (mMol/L) of 3.9 - 4 See instructions for Potassium Protocol in online policies.
Routine Or potassium chloride ER (K-Dur/Klor-Con) tablet 40 mEqJump to med 40 mEq, Oral, EVERY 4 HOURS PRN, Startin g [place] 11/30/19 at 2016, Until Sun12/08/19 at 1811, hypokalemia
Administer for serum potassium (mMol/L) of 3.6 - 3.8 See instructions for Potassium Protocol in online policies.
Routine documented in this encounter Care Teams Vice President Of Sales Relationship Specialty Start Date End Date France Lam MD PCP - General 05/02/13 02/04/20 [address] [place] [address] documented as of this encounter
--- OUTSIDE RECORDS SUMMARY | 2022-06-06 11:17 | XMS_ITS | Encounter Summary ---
:1945 Author Organization [facility] [place] [address] Care Team Providers Name Role Phone France Lam MD Primary Care Provider Encounter Details Date Type Department Care Team Description 05/13/2013 Orders Only Vascular Surgery at [facility]abella Sanchez P[facility] athletic field custodian disease) [facility] (Primary Dx) [place] [address] Social History Tobacco Use Types Packs/Day [...] Terrell MD [facility] ER DR ENDOCRINOLOGY [place], [place] [address] (Wo rk) documented as of this encounter Visit Diagnoses Diagnosis PVD (peripheral vascular disease) - Prim kayy Peripheral vascular disease, unspecified documented in this encounter Care Teams Factory Supervisor Relationship Specialty Start Date End Date France Lam MD PCP - General 05/02/13 02/04/20 [address] [place], [place] [address] documented as of this encounter
--- OUTSIDE RECORDS SUMMARY | 2022-06-06 11:17 | XMS_ITS | Encounter Summary ---
:1945 Author Organization [place] [address] Care Team Providers Name Role Phone France Lam MD Primary Care Provider Encounter Details Date Type Department Care Team Description 11/29/2019 External Results [facility] [place] [address] Social History Tobacco Use Types Packs/Day Years Used Date Smoking Tobacco: Every Day Cigarettes 0.5 Cigars Sex Assigned at Date Recorded Not on file documented as of this encounter Plan of Treatment Upcoming Encounters Date Type Specialty Care Team Description 06/30/2022 Office Visit Endocrinology Alan Terrell MD [facility] ER ENDOCRINOLOGY [place], [place] [address] (Wo rk) documented as of [...] on filedocumented in this encounter Care Teams Scalp Treatment Specialist Relationship Specialty Start Date End Date France Lam MD PCP - General 05/02/13 02/04/20 [address] [place] [address] documented as of this encounter
--- OUTSIDE RECORDS SUMMARY | 2022-06-06 11:17 | XMS_ITS | Encounter Summary ---
:1945 [place] [address] Care Team Providers Name Role Phone France Lam MD Primary Care Provider Encounter Details Date Type Department Care Team Description 11/29/2019 Telephone Cardiovascular [facility] Silvio piedra MD [facility] Devin [place] [address] [place] [address] [phone] (Wo rk) Social History Tobacco Use Types [...] 50s EKG: Inferior STEMI Silvio Real MD Housing Development Specialist PGY-4 11/29/2019 documented in this encounter Plan of Treatment Upcoming Encounters Date Type Specialty Care Team Description 06/30/2022 Office Visit Endocrinology Echt, Alan Beatty MD [facility] ENDOCRINOLOGY [place], [place] [address] (Wo rk) documented as of this encounter Visit Diagnoses Not on filedocumented in this encounter Care Teams Beater Room Helper Relationship Specialty Start Date End Date France Lam MD PCP - General 05/02/13 02/04/20 [address] [place] [address] documented as of this encounter
--- OUTSIDE RECORDS SUMMARY | 2022-06-06 11:17 | XMS_ITS | Encounter Summary ---
:1945 Author Organization [facility] Address [address] [place] [address] Care Team Providers Name Role Phone France Lam MD Primary Care Provider Reason for Visit Reason Comments Claudication Encounter Details Date Type Department Care Team Description 05/13/2013 Office Visit Vascular Surgery at David Sim from [facility] MD Bobby peripheral vascular [facility] dis ease, left (Primary Drive DR [place]) [place], [place] VASCULAR SURGERY [address] [place] [address] [phone] Social History Tobacco Use Types Packs/Day Years [...] Terrell MD [facility] ENDOCRINOLOGY [place], [place] [address] (Wo rk) documented as of this encounter Visit Diagnoses Diagnosis Claudication from peripheral vascular di sease, left - Primary Peripheral vascular disease, unspecified documented in this encounter Care Teams Photo Colorer Relationship Specialty Start Date End Date France Lam MD PCP - General 05/02/13 02/04/20 [address] [place] [address] documented as of this encounter
--- OUTSIDE RECORDS SUMMARY | 2022-06-06 11:17 | XMS_ITS | Encounter Summary ---
:1945 Author Organization [facility] [place] [address] Care Team Providers Name Role Phone France Lam MD Primary Care Provider Encounter Details Date Type Department Care Team Description 05/13/2013 Ancillary Vascular Surgery at Claritza Hall (Primary Appointment [facility] Cesilia Sebastian, [place]x) [place] [address] Social History Tobacco Use Types Packs/Day Years Used Date Smoking Tobacco: Every Day Cigarettes 0.5 Cigars Sex Assigned at Date Recorded Not on file documented as of this encounter Plan of Treatment Upcoming Encounters Date Type Specialty Care Team Description 06/30/2022 Office Visit Endocrinology Alan Terrell MD [facility] ENDOCRINOLOGY [place], [place] [address] (Wo rk) documented as of this encounter Procedures Procedure Name Priority Date/Time Associated Diagnosis Comme nts IGNACIO, LEGS, MULTIPLE Routine 05/13/2013 8:34 AM Calf pain Re sults for this LEVELS EST procedure are i n the results section. documented in this encounter Results IGNACIO, legs, multiple levels (05/13/2013 8:34 AM EST) Component Value Ref Test Analysis Performed At [facility] Range Method Time Signature VB Text VASCUBASE Report Department: Vascular Surgery Lab Patient: [id number] (ANGEL LUIS HI) CPT Code: 70826 ICD-9: 440.21 Referring Physician: FRANCE LAM Indication: [...] Posterior Tibial (Ankle) Art derrell ??84 ?0.64 ??Arroyo- Biphasic ?? Interpretation: RIGHT: ??Mild lower extremity [...] Volume Laterality 05/13/2013 8:34 AM EST France Lma MD VASCULAR ORDERABLES documented in this encounter Visit Diagnoses Diagnosis Calf pain - Primary Pain in limb documented in this encounter Care Teams Process Chemist Relationship Specialty Start Date End Date France Lam MD PCP - General 05/02/13 02/04/20 [address] [place] [address] documented as of this encounter
[2022-06-08 11:00] VITALS: BP 103/58; PULSE 46; O2SAT 95
[2022-06-20 10:58] VITALS: BP 108/59; PULSE 48
[2022-06-22 11:21] VITALS: BP 141/65; PULSE 51; O2SAT 89
[2022-06-27 10:58] VITALS: BP 124/63; PULSE 46; O2SAT 92
[2022-06-29 10:59] VITALS: BP 112/60; PULSE 45
== END 2022-07-01 23:59 | disposition home or self-care (01) ==
LOC: CR 10:58
PROVIDERS: PCP Family Medicine; Visit Provider Internal Medicine Cardiovascular Disease
DX: R69 Illness, unspecified (principal)

== ENCOUNTER 2022-07-13 15:20 | Outpatient (REF) | payer MEDICARE, OTHER, SELFPAY ==
[2022-07-13 16:49] LABS: TSH (W/Ref FT4) 69.12 uIU/mL (0.36-3.74)
[2022-07-13 17:46] LABS: FREE T4 0.53 ng/dL (0.76-1.46)
== END 2022-07-13 15:21 | disposition home or self-care (01) ==
LOC: NCHCN 15:20
PROVIDERS: PCP Family Medicine; Visit Provider Family Medicine
DX: E05.90 Thyrotoxicosis, unspecified without thyrotoxic crisis or storm (principal)
CPT/HCPCS: 84439; 84443

== ENCOUNTER 2022-08-01 11:08 | Outpatient (RCR) | payer SELFPAY ==
[2022-07-02 00:20] VITALS: BP 112/60; PULSE 45
[2022-07-04 10:59] VITALS: BP 121/69; PULSE 45; O2SAT 95
[2022-07-06 10:57] VITALS: BP 108/57; PULSE 46
[2022-07-13 11:01] VITALS: BP 142/70; PULSE 51
[2022-07-18 11:00] VITALS: BP 104/61; PULSE 46; O2SAT 97
[2022-07-20 11:10] VITALS: BP 131/63; PULSE 47
[2022-07-25 11:09] VITALS: BP 123/63; PULSE 50
[2022-08-01 11:03] VITALS: BP 116/63; PULSE 51
== END 2022-08-01 23:59 | disposition home or self-care (01) ==
LOC: CR 11:08
PROVIDERS: PCP Family Medicine; Visit Provider Internal Medicine Cardiovascular Disease
DX: R69 Illness, unspecified (principal)

== ENCOUNTER → 2022-08-07 09:35 | Outpatient (BNVA) | payer MEDICARE, OTHER, SELFPAY | PROVIDERS: PCP Family Medicine; Referring Provider Family Medicine; Visit Provider Internal Medicine Cardiovascular Disease | DX: I25.10 Atherosclerotic heart disease of native coronary artery without angina pectoris (principal); I73.9 Peripheral vascular disease, unspecified; I25.2 Old myocardial infarction; E78.5 Hyperlipidemia, unspecified; Z95.5 Presence of coronary angioplasty implant and graft | CPT/HCPCS: 99214 ==

== ENCOUNTER 2022-08-08 03:45 | Outpatient (CLI) | payer MEDICARE, OTHER, SELFPAY ==
[2022-08-08 10:53] LABS: FREE T4 0.67 ng/dL (0.76-1.46); TSH 30.85 uIU/mL (0.36-3.74)
[2022-08-08 18:11] LABS: T3, Total 94 ng/dL (97-169)
[2022-08-10 16:40] LABS: Thyroid Stimulating Immunoglob 1.8 TSI index (<=1.3)
== END 2022-08-08 03:46 | disposition home or self-care (01) ==
PROVIDERS: PCP Family Medicine; Visit Provider Internal Medicine Endocrinology, Diabetes & Metabolism
DX: E05.90 Thyrotoxicosis, unspecified without thyrotoxic crisis or storm (principal)
CPT/HCPCS: 36415; 84439; 84443; 84445; 84480

== ENCOUNTER 2022-09-26 02:59 | Outpatient (CLI) | payer MEDICARE, OTHER, SELFPAY ==
[2022-09-26 13:31] LABS: FREE T4 1.01 ng/dL (0.76-1.46); TSH 12.52 uIU/mL (0.36-3.74)
[2022-09-26 23:00] LABS: Thyroperoxidase Antibody 63 U/mL (<=60)
== END 2022-09-26 03:00 | disposition home or self-care (01) ==
LOC: LBO 02:59
PROVIDERS: PCP Family Medicine; Visit Provider Internal Medicine
DX: E05.90 Thyrotoxicosis, unspecified without thyrotoxic crisis or storm (principal)
CPT/HCPCS: 36415; 84439; 84443; 86376

== ENCOUNTER 2022-09-28 03:01 | Outpatient (CLI) | payer MEDICARE, OTHER, SELFPAY ==
--- NOTE | 2022-09-29 13:31 | W.PFT ---
Date of service: 09/28/22 Time of Service: 10:02 Pulmonary Function Test Result Indications: Amiodarone use Interpretation Spirometry: There is moderate airflow limitation. Lung Volumes: There is some air trapping Diffusion Capacity: Diffusion is severely reduced Airway Pressure: Normal airways resistance Impression Moderate obstructive lung disease with air trapping and a decreased diffusion. This is consistent with COPD with emphysema. Note: When compared to 02/11/20, lung function is stable. Clinical Correlation therefore is recommended.
== END 2022-09-28 03:02 | disposition home or self-care (01) ==
LOC: RT 03:01
PROVIDERS: PCP Family Medicine; Visit Provider Family Medicine
DX: J44.9 Chronic obstructive pulmonary disease, unspecified (principal); R94.2 Abnormal results of pulmonary function studies; Z79.899 Other long term (current) drug therapy
CPT/HCPCS: 94726; 94729; 94010

== ENCOUNTER 2022-09-28 10:49 | Outpatient (RCR) | payer SELFPAY ==
[2022-08-30 00:09] VITALS: BP 117/64; PULSE 48; RESP 18
[2022-08-31 11:12] VITALS: BP 119/58; PULSE 47
[2022-09-05 10:55] VITALS: BP 115/64; PULSE 46
[2022-09-07 11:04] VITALS: BP 113/60; PULSE 50
[2022-09-14 11:00] VITALS: BP 120/57; PULSE 50
[2022-09-19 11:11] VITALS: BP 135/69; PULSE 47
[2022-09-26 10:59] VITALS: BP 112/58; PULSE 46
[2022-09-28 10:52] VITALS: BP 137/64; PULSE 47
[2022-10-03 11:15] VITALS: BP 114/66; PULSE 45
== END 2022-09-29 23:59 | disposition home or self-care (01) ==
LOC: CR 10:49
PROVIDERS: PCP Family Medicine; Visit Provider Internal Medicine Cardiovascular Disease

== ENCOUNTER 2022-10-05 02:27 | Outpatient (CLI) | payer MEDICARE, OTHER, SELFPAY ==
--- NOTE | 2022-10-05 | DI.CTLCSR_ITS ---
Exam(s) CT CHEST LUNG CANCER SCREEN EXAM: CT CHEST LUNG CANCER SCREEN CLINICAL HISTORY: SCREENING FOR LUNG CA, FORMER SMOKER, Z87.891,PREVENTIVE CARE,Z00.00. TECHNIQUE: Imaging Protocol: Low Dose Technique CONTRAST MATERIAL: None COMPARISON: CT CHEST WITH CONTRAST from 10/08/2015 CR XR RIBS LT W PA LAT CHEST from 08/09/2021 CR XR PORTABLE CHEST AP from 01/26/2022 FINDINGS: CHEST: LUNGS: There is an unchanged 6 millimeter noncalcified nodule in the medial aspect of the left lower lobe, unchanged from 2016 and therefore benign. There is also a smaller 4 millimeter pleural base no dular density posteriorly in the left lower lobe, also unchanged from 2016. In lateral basal segment of the left lower lobe there is a pleural based nodular density measuring 7 x 4 millimeters, unchang ed. No new left lung findings.. In the opposite-right lung there is area of ground-glass nodular infiltrate in the infrahilar region which is also unchanged from 2016 and therefore most probably benign. This measures approximately 1. 1 x 0.8 cm. There is increased markings in the right middle lobe which have benign appearance. Ther e is a nodular density pleural base in the lateral segment of the right middle lobe which is unchange d, measuring 6 millimeters. Increasing atelectasis noted in the right lung base above tendon hemidia phragm. No pleural effusions on either side. No new significant findings in the trachea and mainste m bronchi. No pleural effusions. MEDIASTINUM: There is no obvious hilar nor mediastinal adenopathy. CARDIAC: Heart size is normal. There is no pericardial effusion.Caliber of the thoracic aorta is wit hin normal limits. OTHER: Cholelithiasis noted. Lowermost images of this study reveal the upper aspect of what is proba robyn an infrarenal abdominal aortic aneurysm. Maximum diameter of the upper abdominal aorta in the fi eld of view here of this chest study is 3.2 cm. OSSEOUS: No significant osseous lesions.. IMPRESSION: 1. There are multiple bilateral noncalcified lung nodules as described individually above, all measur ing less than 1 cm and all unchanged from prior CT scan 2016 and therefore most probably benign. The re are no new nodules. No intrathoracic adenopathy. No pleural effusions. 2. Other findings as above. 3. Lung RADS Cat 2 - Benign Appearance / Behavior: Nodules with a very low likelihood of becoming a c linically active cancer due to size or lack of growth Lung-RADS 1.0 CATEGORIES: Category 0 - Prior chest CT exam(s) being located for comparison. Category 1 - Annual screening in 12 months. No nodules or definitely benign nodules. Category 2 - Annual screening in 12 months. Benign appearance. Nodules with low likelihood of becomin g active cancer. Category 3 - 6-month follow-up. Probably benign. Short-term follow-up suggested. Nodules with low lik elihood of becoming active cancer. Category 4A - 3-month follow-up and CT/PET if >8 mm in size. Suspicious finding. Findings which requi re additional testing. Category 4B - Findings which require additional testing and tissue sampling. Category 4X - Category 3 or 4 nodules with additional features or imaging findings that increases the suspicion of malignancy. Modifier S- Potentially clinically significant findings (non lung cancer) RADIATION DOSE DELIVERED: 84.79mGy.cm Total DLP DATA REPOSITORY: All CT scans at this facility are submitted to the National Radiology Data Registry (NRDR) Dose Index Registry (DIR) with the [employer] (ACR). RADIATION OPTIMIZATION: All CT scans at this facility use at least one of these dose optimization te chniques: automated exposure control; mA and/or kV adjustment per patient size (includes targeted exa ms where dose is matched to clinical indication); or iterative reconstruction.
== END 2022-10-05 02:47 ==
LOC: DI 02:28
PROVIDERS: PCP Family Medicine; Visit Provider Family Medicine
DX: Z12.2 Encounter for screening for malignant neoplasm of respiratory organs (principal); Z87.891 Personal history of nicotine dependence; R91.1 Solitary pulmonary nodule; R91.8 Other nonspecific abnormal finding of lung field; J98.4 Other disorders of lung
CPT/HCPCS: 71271

== ENCOUNTER 2022-10-26 11:18 | Outpatient (RCR) | payer SELFPAY ==
[2022-09-30 00:18] VITALS: BP 137/64; PULSE 47; RESP 18
[2022-10-05 11:32] VITALS: BP 120/65; PULSE 48; O2SAT 91
[2022-10-10 11:14] VITALS: BP 120/59; PULSE 44
[2022-10-12 10:58] VITALS: BP 122/59; PULSE 49
[2022-10-17 11:01] VITALS: BP 121/64; PULSE 45
[2022-10-19 13:22] VITALS: BP 126/59; PULSE 48
[2022-10-24 11:39] VITALS: BP 127/63; PULSE 48
[2022-10-26 11:20] VITALS: BP 124/60; PULSE 47
== END 2022-10-29 23:59 | disposition home or self-care (01) ==
LOC: CR 11:18
PROVIDERS: PCP Family Medicine; Visit Provider Internal Medicine Cardiovascular Disease
DX: R69 Illness, unspecified (principal)

== ENCOUNTER → 2022-11-15 10:25 | Outpatient (BNVA) | payer MEDICARE, OTHER, SELFPAY | PROVIDERS: PCP Family Medicine; Referring Provider Family Medicine; Visit Provider Surgery | DX: K62.5 Hemorrhage of anus and rectum (principal); Z79.01 Long term (current) use of anticoagulants | CPT/HCPCS: 99214 ==

== ENCOUNTER 2022-11-15 12:25 | Outpatient (CLI) | payer MEDICARE, OTHER, SELFPAY ==
[2022-11-15 11:59] LABS: HCT 44.5 % (40.0-50.0); HGB 14.2 g/dL (13.5-17.5); MCH 29.8 pg (27.0-33.0); MCHC 31.9 % (32.0-36.0); MCV 93 fL (80-95); MPV 11.5 fL (8.0-11.0); Platelet Count 154 10^3/uL (130-400); RBC 4.77 10^6/uL (4.36-5.78); RDW 14.6 % (11.8-14.1); RDW-SD 50.4 fL; WBC 7.47 10^3/uL (4.4-10.8)
== END 2022-11-15 12:26 | disposition home or self-care (01) ==
LOC: LBO 12:26
PROVIDERS: PCP Family Medicine; Visit Provider Surgery
DX: K62.5 Hemorrhage of anus and rectum (principal)
CPT/HCPCS: 36415; 85027; 99214

== ENCOUNTER 2022-11-21 14:49 | Outpatient (CLI) | payer MEDICARE, OTHER, SELFPAY ==
[2022-11-21 13:38] LABS: FREE T4 1.27 ng/dL (0.76-1.46); TSH 5.01 uIU/mL (0.36-3.74)
== END 2022-11-21 14:50 | disposition home or self-care (01) ==
LOC: LBO 14:50
PROVIDERS: PCP Family Medicine; Visit Provider Internal Medicine
DX: E03.9 Hypothyroidism, unspecified (principal)
CPT/HCPCS: 36415; 84439; 84443

== ENCOUNTER → 2022-11-23 12:49 | Outpatient (BNVA) | payer MEDICARE, OTHER, SELFPAY | PROVIDERS: PCP Family Medicine; Visit Provider Surgery | DX: R19.5 Other fecal abnormalities (principal); K62.5 Hemorrhage of anus and rectum | CPT/HCPCS: 99212; 99214 ==

== ENCOUNTER 2022-11-28 11:02 | Outpatient (RCR) | payer SELFPAY ==
[2022-10-30 00:07] VITALS: BP 124/60; PULSE 47; RESP 18
[2022-10-31 10:57] VITALS: BP 121/62; PULSE 46
[2022-11-02 11:06] VITALS: BP 112/65; PULSE 47
[2022-11-07 10:59] VITALS: BP 117/58; PULSE 44
[2022-11-09 11:05] VITALS: BP 103/59; PULSE 49
[2022-11-14 11:04] VITALS: BP 128/64; PULSE 46
[2022-11-16 11:35] VITALS: BP 115/63; PULSE 50
[2022-11-21 11:00] VITALS: BP 121/64; PULSE 43
[2022-11-23 13:00] VITALS: BP 137/64; PULSE 47
[2022-11-28 11:24] VITALS: BP 109/55; PULSE 47
== END 2022-11-29 23:59 | disposition home or self-care (01) ==
LOC: CR 11:02
PROVIDERS: PCP Family Medicine; Visit Provider Internal Medicine Cardiovascular Disease

== ENCOUNTER 2022-12-28 11:57 | Outpatient (RCR) | payer SELFPAY ==
[2022-11-30 00:05] VITALS: BP 109/55; PULSE 47; RESP 18
[2022-11-30 13:25] VITALS: BP 119/65; PULSE 45
[2022-12-05 10:58] VITALS: BP 121/64; PULSE 45
[2022-12-07 11:14] VITALS: BP 119/66; PULSE 47
[2022-12-12 11:11] VITALS: BP 110/65; PULSE 47
[2022-12-14 11:02] VITALS: BP 120/47; PULSE 53
[2022-12-21 10:59] VITALS: BP 117/63; PULSE 45
[2022-12-26 10:54] VITALS: BP 105/60; PULSE 48
[2022-12-28 11:00] VITALS: BP 112/57; PULSE 46
== END 2022-12-29 23:59 | disposition home or self-care (01) ==
LOC: CR 11:57
PROVIDERS: PCP Family Medicine; Visit Provider Internal Medicine Cardiovascular Disease
DX: R69 Illness, unspecified (principal)

== ENCOUNTER 2023-01-09 03:45 | Outpatient (CLI) | payer MEDICARE, OTHER, SELFPAY ==
--- NOTE | 2023-01-12 10:26 | W.PFT ---
Date of service: 01/09/23 Time of Service: 10:03 Pulmonary Function Test Result Indications: Amiodarone use Interpretation Spirometry: There is moderate airflow limitation. Lung Volumes: There is air trapping. Diffusion Capacity: Diffusion is significantly decreased. Airway Pressure: Normal airways resistance. Impression Moderate airflow limitation with air trapping and a decreased diffusion consistent with COPD with emphysema. Note: When compared to 09/28/22lu function, including the diffusion is stable. Clinical Correlation therefore is recommended.
== END 2023-01-09 03:46 | disposition home or self-care (01) ==
PROVIDERS: PCP Family Medicine; Visit Provider Family Medicine
DX: R94.2 Abnormal results of pulmonary function studies (principal); J44.9 Chronic obstructive pulmonary disease, unspecified
CPT/HCPCS: 94726; 94729; 94010

== ENCOUNTER 2023-01-25 11:02 | Outpatient (RCR) | payer SELFPAY ==
[2022-12-30 00:13] VITALS: BP 112/57; PULSE 46; RESP 18
[2023-01-04 11:03] VITALS: BP 102/54; PULSE 48; O2SAT 89
[2023-01-09 11:10] VITALS: BP 121/64; PULSE 43
[2023-01-11 11:40] VITALS: BP 122/70; PULSE 42
[2023-01-16 11:11] VITALS: BP 152/79; PULSE 46
[2023-01-18 11:15] VITALS: BP 116/64; PULSE 44; O2SAT 89
[2023-01-23 11:01] VITALS: BP 112/60; PULSE 50
[2023-01-25 11:05] VITALS: BP 140/69; PULSE 44; O2SAT 90
== END 2023-01-29 23:59 | disposition home or self-care (01) ==
LOC: CR 11:02
PROVIDERS: PCP Family Medicine; Visit Provider Internal Medicine Cardiovascular Disease
DX: R69 Illness, unspecified (principal)

== ENCOUNTER 2023-02-08 02:35 | Outpatient (CLI) | payer MEDICARE, OTHER, SELFPAY ==
[2023-02-08 16:51] LABS: BUN 34 mg/dL (7-18); CREATININE 2.1 mg/dL (0.70-1.30); Calcium 9.3 mg/dL (8.5-10.1); Chloride 103 mmol/L (98-107); Estimated GFR 31.82 (mL/min/1.73m2); FREE T4 1.55 ng/dL (0.76-1.46); Glucose 94 mg/dL (74-106); Magnesium 2.2 mg/dL (1.8-2.4); NT-proBNP 476 pg/mL (<300); Potassium 4.7 mmol/L (3.5-5.1); Sodium 137 mmol/L (136-145); TSH 2.74 uIU/mL (0.36-3.74)
== END 2023-02-08 02:36 | disposition home or self-care (01) ==
LOC: LBO 02:36
PROVIDERS: PCP Family Medicine; Visit Provider Family Medicine
DX: R06.09 Other forms of dyspnea (principal); E03.9 Hypothyroidism, unspecified; I25.10 Atherosclerotic heart disease of native coronary artery without angina pectoris
CPT/HCPCS: 36415; 80048; 83735; 83880; 84439; 84443

== ENCOUNTER 2023-02-13 16:18 | Outpatient (REF) | payer MEDICARE, OTHER, SELFPAY ==
[2023-02-13 20:37] LABS: Bilirubin Negative (Negative); Blood Negative (Negative); Clarity Clear (Clear); Glucose Negative (Negative); Ketones Negative (Negative); Leukocyte Esterase Negative (Negative); Nitrite Negative (Negative); Specific Gravity 1.025 (1.005-1.025); Urobilinogen 0.2 mg/dL (Up to 0.2); pH 5.5 (5-8)
[2023-02-13 21:04] LABS: Sodium, Urine 91 mmol/L
[2023-02-13 21:11] LABS: COMMENT (LAB VIEW ONLY) 218.53 mg/dL; PROTEIN 18.5 mg/dL; Prot/Crea Ur Ratio 0.08
[2023-02-13 21:14] LABS: Anion Gap 9.6 mmol/L (3-11); BUN 28 mg/dL (7-18); CO2 25.4 mmol/L (21.0-32.0); CREATININE 1.9 mg/dL (0.70-1.30); Calcium 8.9 mg/dL (8.5-10.1); Chloride 107 mmol/L (98-107); Estimated GFR 35.88 (mL/min/1.73m2); Glucose 108 mg/dL (74-106); Potassium 4.6 mmol/L (3.5-5.1); Sodium 142 mmol/L (136-145)
== END 2023-02-13 16:19 | disposition home or self-care (01) ==
LOC: NCHCN 16:18
PROVIDERS: PCP Family Medicine; Visit Provider Family Medicine
DX: N28.9 Disorder of kidney and ureter, unspecified (principal); R79.89 Other specified abnormal findings of blood chemistry; E78.5 Hyperlipidemia, unspecified; E03.9 Hypothyroidism, unspecified
CPT/HCPCS: 80048; 81003; 82565; 84156; 84300

== ENCOUNTER 2023-02-20 07:50 | Outpatient (CLI) | payer MEDICARE, OTHER, SELFPAY ==
--- NOTE | 2023-02-20 07:50 | RT.EKG_ITS ---
APPROVED REPORT Exam: Resting ECG Reason for Exam: afib, amiodarone Patient Location: O HR:48 bpm ECG Measurements Heart Rate 48 AXIS VA 170 P 50 QRSd 99 QRS 35 QT 503 T -20 QTc 450 Conclusion Sinus bradycardia...rate< 50 Abnormal inferior Q waves...Qs add to 80 mS in II III aVF
== END 2023-02-20 07:51 | disposition home or self-care (01) ==
LOC: DI.CARD 07:51
PROVIDERS: PCP Family Medicine; Visit Provider Internal Medicine Cardiovascular Disease
DX: Z51.81 Encounter for therapeutic drug level monitoring (principal)
CPT/HCPCS: 93010

== ENCOUNTER → 2023-02-20 10:52 | Outpatient (BNVA) | payer MEDICARE, OTHER, SELFPAY | PROVIDERS: PCP Family Medicine; Visit Provider Internal Medicine Cardiovascular Disease | DX: I48.0 Paroxysmal atrial fibrillation (principal); Z79.01 Long term (current) use of anticoagulants; I25.2 Old myocardial infarction; J44.9 Chronic obstructive pulmonary disease, unspecified; I25.10 Atherosclerotic heart disease of native coronary artery without angina pectoris; E78.5 Hyperlipidemia, unspecified; I73.9 Peripheral vascular disease, unspecified | CPT/HCPCS: 93005; 99214 ==

== ENCOUNTER 2023-03-01 11:03 | Outpatient (RCR) | payer SELFPAY ==
[2023-01-30 00:13] VITALS: BP 140/69; PULSE 44; RESP 18
[2023-01-30 11:00] VITALS: BP 104/58; PULSE 48
[2023-02-01 11:17] VITALS: BP 114/60; PULSE 43
[2023-02-06 10:58] VITALS: BP 109/57; PULSE 47; O2SAT 93
[2023-02-08 11:22] VITALS: BP 100/54; PULSE 48
[2023-02-13 11:59] VITALS: BP 123/62; PULSE 45
[2023-02-15 11:02] VITALS: BP 120/69; PULSE 52
[2023-02-20 11:22] VITALS: BP 151/73; PULSE 58
[2023-02-22 11:13] VITALS: BP 127/67; PULSE 46
[2023-02-27 11:04] VITALS: BP 116/58; PULSE 49
[2023-03-01 11:10] VITALS: BP 112/59; PULSE 46
== END 2023-03-01 23:59 | disposition home or self-care (01) ==
LOC: CR 11:03
PROVIDERS: PCP Family Medicine; Visit Provider Internal Medicine Cardiovascular Disease
DX: R69 Illness, unspecified (principal)

== ENCOUNTER 2023-03-29 05:16 | Outpatient (CLI) | payer MEDICARE, OTHER, SELFPAY ==
[2023-03-29 12:57] LABS: TSH 2.13 uIU/mL (0.36-3.74)
== END 2023-03-29 05:17 | disposition home or self-care (01) ==
LOC: LBO 05:16
PROVIDERS: PCP Family Medicine; Visit Provider Internal Medicine
DX: E03.9 Hypothyroidism, unspecified (principal)
CPT/HCPCS: 36415; 84439; 84443

== ENCOUNTER 2023-03-29 11:04 | Outpatient (RCR) | payer SELFPAY ==
[2023-03-02 00:06] VITALS: BP 112/59; PULSE 46; RESP 18
[2023-03-06 11:16] VITALS: BP 125/72; PULSE 45
[2023-03-08 11:05] VITALS: BP 116/65; PULSE 48; O2SAT 91
[2023-03-13 11:09] VITALS: BP 118/63; PULSE 47
[2023-03-15 10:58] VITALS: BP 125/67; PULSE 47
[2023-03-20 11:12] VITALS: BP 135/66; PULSE 49
[2023-03-29 11:13] VITALS: BP 150/71; PULSE 45
== END 2023-03-31 23:59 | disposition home or self-care (01) ==
LOC: CR 11:04
PROVIDERS: PCP Family Medicine; Visit Provider Internal Medicine Cardiovascular Disease
DX: R69 Illness, unspecified (principal)

== ENCOUNTER → 2023-04-03 01:02 | Outpatient (CLI) | payer MEDICARE, OTHER, SELFPAY ==
--- NOTE | 2023-04-03 | DI.US_ITS ---
Exam(s) US RENAL EXAM: US RENAL CLINICAL HISTORY: RENAL INSUFFICIENCY,ACUTE N28.9. TECHNIQUE: Silveira scale, color and spectral Doppler were used. COMPARISON: No exams were available for comparison FINDINGS: Renal size in cm: Right: 8.5 left: 3 Echogenicity: Normal Hydronephrosis: No Cyst or mass: No Nephrolithiasis: No Bladder:Normal. Ureteral jets not visualized. Prevoid vol: 83 cc Postvoid vol: Patient unable to void. Prostate volume 20 cc IMPRESSION: No evidence of hydronephrosis. Renal parenchymal echogenicity and thickness appear normal. DATA REPOSITORY:
== END ==
PROVIDERS: PCP Family Medicine; Visit Provider Family Medicine
DX: N28.9 Disorder of kidney and ureter, unspecified (principal)
CPT/HCPCS: 76770

== ENCOUNTER 2023-05-01 11:10 | Outpatient (RCR) | payer SELFPAY ==
[2023-04-01 00:13] VITALS: BP 150/71; PULSE 45; RESP 18
[2023-04-03 11:01] VITALS: BP 120/64; PULSE 45
[2023-04-12 11:01] VITALS: BP 118/54; PULSE 45
[2023-04-17 10:56] VITALS: BP 119/62; PULSE 49
[2023-04-19 15:01] VITALS: BP 129/61; PULSE 52; O2SAT 86
[2023-04-24 11:21] VITALS: BP 128/67; PULSE 46; O2SAT 93
[2023-04-26 11:52] VITALS: BP 124/60; PULSE 47
[2023-05-01 13:09] VITALS: BP 137/64; PULSE 48
== END 2023-05-01 23:59 | disposition home or self-care (01) ==
LOC: CR 11:10
PROVIDERS: PCP Family Medicine; Visit Provider Internal Medicine Cardiovascular Disease
DX: R69 Illness, unspecified (principal)

== ENCOUNTER 2023-05-28 18:20 | Outpatient (REF) | payer MEDICARE, OTHER, SELFPAY ==
[2023-05-28 19:11] LABS: Anion Gap 10.4 mmol/L (3-11); BUN 23 mg/dL (7-18); CO2 26.6 mmol/L (21.0-32.0); CREATININE 1.5 mg/dL (0.70-1.30); Calcium 9.6 mg/dL (8.5-10.1); Chloride 105 mmol/L (98-107); Estimated GFR 47.65 (mL/min/1.73m2); Glucose 100 mg/dL (74-106); Sodium 142 mmol/L (136-145); TSH (W/Ref FT4) 1.96 uIU/mL (0.36-3.74)
== END 2023-05-28 18:21 | disposition home or self-care (01) ==
LOC: NCHCN 18:20
PROVIDERS: PCP Family Medicine; Visit Provider Family Medicine
DX: N18.30 Chronic kidney disease, stage 3 unspecified (principal); E03.9 Hypothyroidism, unspecified
CPT/HCPCS: 80048; 84443

== ENCOUNTER 2023-05-31 11:08 | Outpatient (RCR) | payer SELFPAY ==
[2023-05-02 00:08] VITALS: BP 150/71; PULSE 45; RESP 18
[2023-05-03 11:03] VITALS: BP 115/64; PULSE 48; O2SAT 92
[2023-05-08 10:53] VITALS: BP 139/63; PULSE 49
[2023-05-15 10:37] VITALS: BP 156/66; PULSE 48
[2023-05-17 11:13] VITALS: BP 124/64; PULSE 47
[2023-05-22 11:19] VITALS: BP 145/75; PULSE 51
[2023-05-29 10:58] VITALS: BP 134/68; PULSE 51
[2023-05-31 11:16] VITALS: BP 143/54; PULSE 53
== END 2023-05-31 23:59 | disposition home or self-care (01) ==
LOC: CR 11:08
PROVIDERS: PCP Family Medicine; Visit Provider Internal Medicine Cardiovascular Disease
DX: R69 Illness, unspecified (principal)

== ENCOUNTER 2023-06-28 10:42 | Outpatient (RCR) | payer SELFPAY ==
[2023-06-01 00:06] VITALS: BP 150/71; PULSE 45; RESP 18
[2023-06-05 11:45] VITALS: BP 136/66; PULSE 51
[2023-06-07 11:30] VITALS: BP 132/61; PULSE 51
[2023-06-12 11:11] VITALS: BP 154/71; PULSE 48; O2SAT 94
[2023-06-14 11:33] VITALS: BP 132/68; PULSE 49; O2SAT 92
[2023-06-19 11:03] VITALS: BP 119/65; PULSE 49; O2SAT 92
[2023-06-21 10:58] VITALS: BP 112/63; PULSE 50
[2023-06-28 10:40] VITALS: BP 118/64; PULSE 54; O2SAT 85
== END 2023-07-01 23:59 | disposition home or self-care (01) ==
LOC: CR 10:42
PROVIDERS: PCP Family Medicine; Visit Provider Internal Medicine Cardiovascular Disease
DX: R69 Illness, unspecified (principal)